=== PATIENT | female | born 1945 | race African-American/Black ===

== ENCOUNTER 2017-07-18 03:48 | Emergency (ER) | payer OTHER ==
[~2017-07-18 03:48] MED LIST: RSI MEDICATION KIT IV ONE
[2017-07-18] MEDS ORDERED: ETOMIDATE 20 MG/10 ML VIAL IV ONE (03:49)
[2017-07-18] MEDS ORDERED: WATER FOR INJ,STERILE 10 ML PO ONE (03:49)
[2017-07-18] MEDS ORDERED: VECURONIUM 10 MG/VIAL IV ONE (03:49)
--- OUTSIDE RECORDS SUMMARY | 2017-07-18 03:50 | XMS REPORT | Clinical Summary ---
:1945 Author Organization [facility] Address [address] [place] [address] Phone Care Team Providers Name Role Phone Unavailable Primary Care Provider Unavailable Allergies Active Allergy Reactions Severity Noted Date Comments Codeine 06/11/2016 Iodine And Iodide Containing Products Hives 06/11/2016 Current Medications Prescription Sig. Disp. Refills Start Date End Date Status metoprolol (LOPRESSOR) 25 Take 25 mg by Active MG tablet mouth daily. furosemide (LASIX) 40 MG Take 20 mg by Active tablet mouth daily. clopidogrel (PLAVIX) 75 mg Take 75 mg by Active tablet mouth daily. aspirin 81 MG chewable Take 81 mg by Active tablet mouth daily. Active Problems Problem Noted Date H/O aortic aneurysm repair 06/12/2016 Overview: S/p TEVAR with Dr. 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
--- OUTSIDE RECORDS SUMMARY | 2017-07-18 03:51 | XMS REPORT ---
:1945 [facility] Address [facility] [address] [place] [address] Care Team Providers Name Role Phone KIRILL WOODARD Unavailable Unavailable Problems This patient has no known problems. Allergies, Adverse Reactions, Alerts This patient has no known allergies or adverse reactions. Medications This patient has no known medications. Results Test Description Test Time Test Comments Text Results Atomic Results Result Comments POCT-GLUCOSE METER 2016-06-15 12:27:00 Test Item Value Reference Range Comments POC-GLUCOSE METER (BEAKER) (test 156 mg/dL 70-[address] [facility] [address] [facility] skle=[id number]) [facility] [address] BASIC METABOLIC [id number] 05:45:00 Test Item Value Reference Range Comments SODIUM (BEAKER) (test 141 meq/L 136-145 kgts=678) POTASSIUM (BEAKER) (test 4.1 meq/L 3.5-5.1 ujcp=621) CHLORIDE (BEAKER) (test 106 meq/L 98-107 ccqe=070) CO2 (BEAKER) (test 26 meq/L 22-29 ewgc=844) BLOOD UREA NITROGEN 11 mg/dL 7-21 (BEAKER) (test icmn=496) CREATININE (BEAKER) (test 0.83 mg/dL 0.57-1.25 bjvx=638) GLUCOSE RANDOM (BEAKER) 139 mg/dL 70-105 (test vxrm=070) CALCIUM (BEAKER) (test 8.5 mg/dL 8.4-10.2 osxu=752) EGFR (BEAKER) (test 83 mL/min/1.73 sq m ESTIMATED GFR IS NOT khxw=4853) ACCURATE CREATININE CLEARANCE IN PREDICTING GLOMERULAR FILTRATION RATE. ESTIMATED GFR IS NOT APPLICABLE FOR DIALYSIS PATIENTS. POCT-GLUCOSE [id number] 21:10:00 Test Item Value Reference Range Comments POC-GLUCOSE METER (BEAKER) 103 mg/dL 70-110 TESTED AT [address] (test jtmk=9825) [facility] [address] POCT-GLUCOSE [id number] 17:51:00 Test Item Value Reference Range Comments POC-GLUCOSE METER (BEAKER) 138 mg/dL 70-110 TESTED AT [address] (test ayjy=5785) [facility] [address] POCT-GLUCOSE [id number] 12:45:00 Test Item Value Reference Range Comments POC-GLUCOSE METER (BEAKER) 294 mg/dL 70-110 TESTED AT [address] (test lobd=2219) [place] [id number] CBC WITH PLATELET COUNT + MANUAL [id number] 07:04:00 Test Item Value Reference Range Comments WHITE BLOOD CELL COUNT (BEAKER) (test xngg=025) 10.7 K/ L 4.0-10.0 RED BLOOD CELL COUNT (BEAKER) (test ydvt=993) 3.91 M/ L 4.00-5.00 HEMOGLOBIN (BEAKER) (test fuoi=366) 12.9 GM/DL 12.0-15.0 HEMATOCRIT (BEAKER) (test hych=570) 39.0 % 36.0-45.0 MEAN CORPUSCULAR VOLUME (BEAKER) (test cdxd=746) 99.6 fL 82.0-99.0 MEAN CORPUSCULAR HEMOGLOBIN (BEAKER) (test 32.9 pg 27.0-33.0 jjsp=802) MEAN CORPUSCULAR HEMOGLOBIN CONC (BEAKER) (test 33.0 GM/DL 32.0-36.0 gltd=504) RED CELL DISTRIBUTION WIDTH (BEAKER) (test 12.8 % 10.3-14.2 igsa=822) PLATELET COUNT (BEAKER) (test gzky=152) 251 K/CU MM 150-430 MEAN PLATELET VOLUME (BEAKER) (test iqwz=008) 8.1 fL 6.5-10.5 NUCLEATED RED BLOOD CELLS (BEAKER) (test 0 /100 WBC 0-0 gncz=287) NEUTROPHILS RELATIVE PERCENT (BEAKER) (test 80 % mesf=366) LYMPHOCYTES RELATIVE PERCENT (BEAKER) (test 14 % pugd=983) MONOCYTES RELATIVE PERCENT (BEAKER) (test 6 % ingn=467) EOSINOPHILS RELATIVE PERCENT (BEAKER) (test 0 % twlm=382) BASOPHILS RELATIVE PERCENT (BEAKER) (test 0 % yebd=180) NEUTROPHILS ABSOLUTE COUNT (BEAKER) (test 8.55 K/ L 1.80-8.00 pmau=199) LYMPHOCYTES ABSOLUTE COUNT (BEAKER) (test 1.46 K/ L 1.48-4.50 ierz=665) MONOCYTES ABSOLUTE COUNT (BEAKER) (test 0.60 K/ L 0.00-1.30 hjpk=378) EOSINOPHILS ABSOLUTE COUNT (BEAKER) (test 0.05 K/ L 0.00-0.50 hiwt=412) BASOPHILS ABSOLUTE COUNT (BEAKER) (test 0.02 K/ L 0.00-0.20 thxx=357) 0.00(MANUAL DIFFERENTIAL)2016-06-14 07:04:00 Test Item Value Reference Range Comments TOTAL COUNTED (BEAKER) (test fzyn=0527) PLT MORPHOLOGY (BEAKER) (test bgij=478) Normal RBC MORPHOLOGY (BEAKER) (test ydmc=146) Normal ATYPICAL LYMPHS(BEAKER) (test tqqa=9654) Present BASIC METABOLIC [id number] 05:05:00 Test Item Value Reference Range Comments SODIUM (BEAKER) (test 140 meq/L 136-145 zivj=835) POTASSIUM (BEAKER) (test 3.8 meq/L 3.5-5.1 ymem=196) CHLORIDE (BEAKER) (test 107 meq/L 98-107 pyee=853) CO2 (BEAKER) (test 26 meq/L 22-29 qvmh=603) BLOOD UREA NITROGEN 13 mg/dL 7-21 (BEAKER) (test pyji=409) CREATININE (BEAKER) (test 0.80 mg/dL 0.57-1.25 wvpi=823) GLUCOSE RANDOM (BEAKER) 177 mg/dL 70-105 (test jofd=173) CALCIUM (BEAKER) (test 8.3 mg/dL 8.4-10.2 xysn=804) EGFR (BEAKER) (test 86 mL/min/1.73 sq m ESTIMATED GFR IS NOT mxwr=9435) ACCURATE CREATININE CLEARANCE IN PREDICTING GLOMERULAR FILTRATION RATE. ESTIMATED GFR IS NOT APPLICABLE FOR DIALYSIS PATIENTS. [id number] 04:48:00 Test Item Value Reference Range Comments PROTIME (BEAKER) (test ivky=774) 13.0 seconds 11.7-14.7 INR (BEAKER) (test tuou=689) 1.0 <=5.9 PARTIAL THROMBOPLASTIN TIME (BEAKER) (test 31.8 seconds 22.5-36.0 gmvr=863) RECOMMENDED COUMADIN/WARFARIN INR THERAPY RANGESSTANDARD DOSE: 2.0 - 3.0 Includes: PROPHYLAXIS forvenous thrombosis, systemic embolization; TREATMENT for venous thrombosis and/or pulmonary embolus.HIGH RISK: Target INR is 2.5-3.5 for patients with mechanical heart valves.POCT-GLUCOSE [id number] 22:11:00 Test Item Value Reference Range Comments POC-GLUCOSE METER (BEAKER) 200 mg/dL 70-110 TESTED AT [address] (test tpqr=1787) [place] [id number] POCT-GLUCOSE [id number] 17:13:00 Test Item Value Reference Range Comments POC-GLUCOSE METER (BEAKER) 225 mg/dL 70-110 TESTED AT [address] (test ngya=4449) [place] [id number] POCT-GLUCOSE [id number] 12:22:00 Test Item Value Reference Range Comments POC-GLUCOSE METER (BEAKER) 309 mg/dL 70-110 Notified PAULA BERGER/TESTED AT [facility] (test ozec=4358) [address] [place] [address] URINALYSIS W/ [id number] 12:09:00 Test Item Value Reference Range Comments COLOR (BEAKER) (test eqev=899) Yellow CLARITY (BEAKER) (test zozy=230) Clear SPECIFIC GRAVITY UA (BEAKER) (test yfcu=351) 1.035 1.001-1.035 PH UA (BEAKER) (test rofr=451) 5.0 5.0-8.0 PROTEIN UA (BEAKER) (test zvei=875) Negative Negative GLUCOSE UA (BEAKER) (test kcxn=965) 150 mg/dL Negative KETONES UA (BEAKER) (test uing=380) Negative Negative BILIRUBIN UA (BEAKER) (test fpkt=285) Negative Negative BLOOD UA (BEAKER) (test ldis=371) Small Negative NITRITE UA (BEAKER) (test brjx=422) Negative Negative LEUKOCYTE ESTERASE UA (BEAKER) (test cwlj=886) Negative Negative UROBILINOGEN UA (BEAKER) (test hxar=985) 0.2 mg/dL 0.2-1.0 RBC UA (BEAKER) (test dhzo=936) 6 /HPF WBC UA (BEAKER) (test biph=414) 1 /HPF MUCUS (BEAKER) (test buiz=4920) Rare SQUAMOUS EPITHELIAL (BEAKER) (test pxzb=056) 6 /HPF HYALINE CASTS (BEAKER) (test pahh=231) 2 /LPF SOURCE(BEAKER) (test fyqo=9044) POCT-GLUCOSE [id number] 07:58:00 Test Item Value Reference Range Comments POC-GLUCOSE METER (BEAKER) 236 mg/dL 70-[address] [facility] [address] [facility] (test ewca=4819) [facility] [address] BASIC METABOLIC [id number] 04:10:00 Test Item Value Reference Range Comments SODIUM (BEAKER) (test 138 meq/L 136-145 fhey=837) POTASSIUM (BEAKER) (test 4.2 meq/L 3.5-5.1 duvc=685) CHLORIDE (BEAKER) (test 107 meq/L 98-107 mwvd=822) CO2 (BEAKER) (test 22 meq/L 22-29 sfja=519) BLOOD UREA NITROGEN 20 mg/dL 7-21 (BEAKER) (test yrny=076) CREATININE (BEAKER) (test 1.00 mg/dL 0.57-1.25 qttx=715) GLUCOSE RANDOM (BEAKER) 246 mg/dL 70-105 (test szvb=694) CALCIUM (BEAKER) (test 8.8 mg/dL 8.4-10.2 izjq=055) EGFR (BEAKER) (test 67 mL/min/1.73 sq m ESTIMATED GFR IS NOT jeqe=8512) ACCURATE CREATININE CLEARANCE IN PREDICTING GLOMERULAR FILTRATION RATE. ESTIMATED GFR IS NOT APPLICABLE FOR DIALYSIS PATIENTS. PT/[id number] 04:03:00 Test Item Value Reference Range Comments PROTIME (BEAKER) (test ijxe=672) 12.8 seconds 11.7-14.7 INR (BEAKER) (test suqm=338) 1.0 <=5.9 PARTIAL THROMBOPLASTIN TIME (BEAKER) (test 29.6 seconds 22.5-36.0 moee=058) RECOMMENDED COUMADIN/WARFARIN INR THERAPY RANGESSTANDARD DOSE: 2.0 - 3.0 Includes: PROPHYLAXIS forvenous thrombosis, systemic embolization; TREATMENT for venous thrombosis and/or pulmonary embolus.HIGH RISK: Target INR is 2.5-3.5 for patients with mechanical heart valves.CBC WITH PLATELET COUNT + MANUAL [id number] 03:58:00 Test Item Value Reference Range Comments WHITE BLOOD CELL COUNT (BEAKER) (test xwrw=202) 14.3 K/ L 4.0-10.0 RED BLOOD CELL COUNT (BEAKER) (test hsnh=278) 4.03 M/ L 4.00-5.00 HEMOGLOBIN (BEAKER) (test ywvi=426) 13.1 GM/DL 12.0-15.0 HEMATOCRIT (BEAKER) (test priu=077) 39.7 % 36.0-45.0 MEAN CORPUSCULAR VOLUME (BEAKER) (test tony=885) 98.5 fL 82.0-99.0 MEAN CORPUSCULAR HEMOGLOBIN (BEAKER) (test 32.6 pg 27.0-33.0 wmyh=640) MEAN CORPUSCULAR HEMOGLOBIN CONC (BEAKER) (test 33.1 GM/DL 32.0-36.0 qvmo=945) RED CELL DISTRIBUTION WIDTH (BEAKER) (test 12.9 % 10.3-14.2 rtbq=209) PLATELET COUNT (BEAKER) (test bpvg=042) 271 K/CU MM 150-430 MEAN PLATELET VOLUME (BEAKER) (test guss=221) 7.7 fL 6.5-10.5 NUCLEATED RED BLOOD CELLS (BEAKER) (test 0 /100 WBC 0-0 dzlo=641) NEUTROPHILS RELATIVE PERCENT (BEAKER) (test 87 % mjnc=653) LYMPHOCYTES RELATIVE PERCENT (BEAKER) (test 7 % ghoc=962) MONOCYTES RELATIVE PERCENT (BEAKER) (test 6 % pari=712) EOSINOPHILS RELATIVE PERCENT (BEAKER) (test 0 % kchh=517) BASOPHILS RELATIVE PERCENT (BEAKER) (test 0 % ldrn=161) NEUTROPHILS ABSOLUTE COUNT (BEAKER) (test 12.40 K/ L 1.80-8.00 ubvs=661) LYMPHOCYTES ABSOLUTE COUNT (BEAKER) (test 1.06 K/ L 1.48-4.50 wirk=294) MONOCYTES ABSOLUTE COUNT (BEAKER) (test 0.81 K/ L 0.00-1.30 rjcb=500) EOSINOPHILS ABSOLUTE COUNT (BEAKER) (test 0.01 K/ L 0.00-0.50 swph=439) BASOPHILS ABSOLUTE COUNT (BEAKER) (test 0.03 K/ L 0.00-0.20 txtb=067) 0.000.530.000.000.520.000.000.000.00POCT-GLUCOSE [id number] 22:17:00 Test Item Value Reference Range Comments POC-GLUCOSE METER (BEAKER) 260 mg/dL 70-110 TESTED AT [address] (test ddve=6612) [place] [address] POCT-GLUCOSE [id number] 12:11:00 Test Item Value Reference Range Comments POC-GLUCOSE METER (BEAKER) 278 mg/dL 70-110 TESTED AT [address] (test oxbk=6383) [place] [address] HEMOGLOBIN [id number] 10:46:00 Test Item Value Reference Range Comments HEMOGLOBIN A1C (BEAKER) (test ioxb=783) 9.7 % 4.3-6.1 DC\S\Delta Check\S\NONEPOCT-GLUCOSE [id number] 07:15:00 Test Item Value Reference Range Comments POC-GLUCOSE METER (BEAKER) 283 mg/dL 70-110 TESTED AT [address] (test lqoe=5039) [place] [address] BASIC METABOLIC [id number] 04:43:00 Test Item Value Reference Range Comments SODIUM (BEAKER) (test 136 meq/L 136-145 rqqi=025) POTASSIUM (BEAKER) (test 4.0 meq/L 3.5-5.1 upkq=055) CHLORIDE (BEAKER) (test 102 meq/L 98-107 euxx=708) CO2 (BEAKER) (test 27 meq/L 22-29 jbnr=517) BLOOD UREA NITROGEN 18 mg/dL 7-21 (BEAKER) (test doga=328) CREATININE (BEAKER) (test 0.95 mg/dL 0.57-1.25 jire=985) GLUCOSE RANDOM (BEAKER) 256 mg/dL 70-105 (test jehh=192) CALCIUM (BEAKER) (test 9.0 mg/dL 8.4-10.2 vqdq=378) EGFR (BEAKER) (test 71 mL/min/1.73 sq m ESTIMATED GFR IS NOT smdk=4832) ACCURATE CREATININE CLEARANCE IN PREDICTING GLOMERULAR FILTRATION RATE. ESTIMATED GFR IS NOT APPLICABLE FOR DIALYSIS PATIENTS. CBC WITH PLATELET COUNT + MANUAL [id number] 04:28:00 Test Item Value Reference Range Comments WHITE BLOOD CELL COUNT (BEAKER) (test niid=461) 11.6 K/ L 4.0-10.0 RED BLOOD CELL COUNT (BEAKER) (test ulsn=028) 4.15 M/ L 4.00-5.00 HEMOGLOBIN (BEAKER) (test jhhp=326) 13.3 GM/DL 12.0-15.0 HEMATOCRIT (BEAKER) (test xeib=366) 40.5 % 36.0-45.0 MEAN CORPUSCULAR VOLUME (BEAKER) (test rsuc=961) 97.6 fL 82.0-99.0 MEAN CORPUSCULAR HEMOGLOBIN (BEAKER) (test 32.1 pg 27.0-33.0 nftg=911) MEAN CORPUSCULAR HEMOGLOBIN CONC (BEAKER) (test 32.9 GM/DL 32.0-36.0 ahti=253) RED CELL DISTRIBUTION WIDTH (BEAKER) (test 12.7 % 10.3-14.2 wlgb=475) PLATELET COUNT (BEAKER) (test vupe=409) 263 K/CU MM 150-430 MEAN PLATELET VOLUME (BEAKER) (test lofn=535) 8.2 fL 6.5-10.5 NUCLEATED RED BLOOD CELLS (BEAKER) (test 0 /100 WBC 0-0 nnks=555) NEUTROPHILS RELATIVE PERCENT (BEAKER) (test 90 % meez=104) LYMPHOCYTES RELATIVE PERCENT (BEAKER) (test 8 % rjgu=363) MONOCYTES RELATIVE PERCENT (BEAKER) (test 2 % bfya=135) EOSINOPHILS RELATIVE PERCENT (BEAKER) (test 0 % mdbm=289) BASOPHILS RELATIVE PERCENT (BEAKER) (test 0 % rgwj=287) NEUTROPHILS ABSOLUTE COUNT (BEAKER) (test 10.40 K/ L 1.80-8.00 mwic=819) LYMPHOCYTES ABSOLUTE COUNT (BEAKER) (test 0.95 K/ L 1.48-4.50 lsld=942) MONOCYTES ABSOLUTE COUNT (BEAKER) (test 0.20 K/ L 0.00-1.30 mgzx=471) EOSINOPHILS ABSOLUTE COUNT (BEAKER) (test 0.02 K/ L 0.00-0.50 buwf=038) BASOPHILS ABSOLUTE COUNT (BEAKER) (test 0.02 K/ L 0.00-0.20 veiu=703) 0.00PT/[id number] 04:25:00 Test Item Value Reference Range Comments PROTIME (BEAKER) (test jwpx=355) 13.7 seconds 11.7-14.7 INR (BEAKER) (test zddo=645) 1.1 <=5.9 PARTIAL THROMBOPLASTIN TIME (BEAKER) (test 32.8 seconds 22.5-36.0 vpfr=718) RECOMMENDED COUMADIN/WARFARIN INR THERAPY RANGESSTANDARD DOSE: 2.0 - 3.0 Includes: PROPHYLAXIS forvenous thrombosis, systemic embolization; TREATMENT for venous thrombosis and/or pulmonary embolus.HIGH RISK: Target INR is 2.5-3.5 for patients with mechanical heart valves.POCT-GLUCOSE [id number] 02:47:00 Test Item Value Reference Range Comments POC-GLUCOSE METER (BEAKER) 278 mg/dL 70-110 TESTED AT [address] (test qrqj=7127) [place] [address] POCT-GLUCOSE [id number] 22:12:00 Test Item Value Reference Range Comments POC-GLUCOSE METER (BEAKER) 258 mg/dL 70-110 TESTED AT [address] (test igui=3729) [place] [address] [id number] 15:44:00 Test Item Value Reference Range Comments MAGNESIUM (BEAKER) (test 2.1 mg/dL 1.6-2.6 Specimen slightly hemolyzed ojzm=500) [id number] 15:44:00 Test Item Value Reference Range Comments PHOSPHORUS (BEAKER) (test 2.9 mg/dL 2.3-4.7 Specimen slightly hemolyzed aetz=353) BASIC METABOLIC [id number] 15:44:00 Test Item Value Reference Range Comments SODIUM (BEAKER) (test 137 meq/L 136-145 wnwj=818) POTASSIUM (BEAKER) (test 4.4 meq/L 3.5-5.1 Specimen slightly ktua=950) hemolyzed CHLORIDE (BEAKER) (test 99 meq/L 98-107 vnnx=015) CO2 (BEAKER) (test 27 meq/L 22-29 jmal=286) BLOOD UREA NITROGEN 13 mg/dL 7-21 (BEAKER) (test shts=576) CREATININE (BEAKER) (test 0.96 mg/dL 0.57-1.25 Specimen slightly eedw=021) hemolyzed GLUCOSE RANDOM (BEAKER) 250 mg/dL 70-105 (test mujq=167) CALCIUM (BEAKER) (test 9.6 mg/dL 8.4-10.2 asri=017) EGFR (BEAKER) (test 70 mL/min/1.73 sq m ESTIMATED GFR IS NOT ezsj=2472) ACCURATE CREATININE CLEARANCE IN PREDICTING GLOMERULAR FILTRATION RATE. ESTIMATED GFR IS NOT APPLICABLE FOR DIALYSIS PATIENTS. CBC WITH PLATELET COUNT + MANUAL [id number] 15:39:00 Test Item Value Reference Range Comments WHITE BLOOD CELL COUNT (BEAKER) (test fcwv=993) 9.5 K/ L 4.0-10.0 RED BLOOD CELL COUNT (BEAKER) (test scnv=450) 4.18 M/ L 4.00-5.00 HEMOGLOBIN (BEAKER) (test hfzj=789) 14.0 GM/DL 12.0-15.0 HEMATOCRIT (BEAKER) (test cgfm=144) 40.7 % 36.0-45.0 MEAN CORPUSCULAR VOLUME (BEAKER) (test unik=500) 97.3 fL 82.0-99.0 MEAN CORPUSCULAR HEMOGLOBIN (BEAKER) (test 33.4 pg 27.0-33.0 kqrj=929) MEAN CORPUSCULAR HEMOGLOBIN CONC (BEAKER) (test 34.3 GM/DL 32.0-36.0 jhdb=252) RED CELL DISTRIBUTION WIDTH (BEAKER) (test 12.6 % 10.3-14.2 nuzw=146) PLATELET COUNT (BEAKER) (test aife=970) 253 K/CU MM 150-430 MEAN PLATELET VOLUME (BEAKER) (test nlmg=805) 8.1 fL 6.5-10.5 NUCLEATED RED BLOOD CELLS (BEAKER) (test 0 /100 WBC 0-0 fmiu=083) NEUTROPHILS RELATIVE PERCENT (BEAKER) (test 91 % rylk=031) LYMPHOCYTES RELATIVE PERCENT (BEAKER) (test 8 % kyef=304) MONOCYTES RELATIVE PERCENT (BEAKER) (test 1 % ghha=384) EOSINOPHILS RELATIVE PERCENT (BEAKER) (test 0 % mwhz=788) BASOPHILS RELATIVE PERCENT (BEAKER) (test 0 % lhvk=084) NEUTROPHILS ABSOLUTE COUNT (BEAKER) (test 8.66 K/ L 1.80-8.00 kwqg=904) LYMPHOCYTES ABSOLUTE COUNT (BEAKER) (test 0.78 K/ L 1.48-4.50 yvlu=219) MONOCYTES ABSOLUTE COUNT (BEAKER) (test 0.07 K/ L 0.00-1.30 ebak=283) EOSINOPHILS ABSOLUTE COUNT (BEAKER) (test 0.01 K/ L 0.00-0.50 apxy=977) BASOPHILS ABSOLUTE COUNT (BEAKER) (test 0.01 K/ L 0.00-0.20 sdqi=354) [id number] 15:39:00 Test Item Value Reference Range Comments PROTIME (BEAKER) (test mfun=793) 12.7 seconds 11.7-14.7 INR (BEAKER) (test qskx=015) 1.0 <=5.9 PARTIAL THROMBOPLASTIN TIME (BEAKER) (test 32.8 seconds 22.5-36.0 lijf=197) RECOMMENDED COUMADIN/WARFARIN INR THERAPY RANGESSTANDARD DOSE: 2.0 - 3.0 Includes: PROPHYLAXIS forvenous thrombosis, systemic embolization; TREATMENT for venous thrombosis and/or pulmonary embolus.HIGH RISK: Target INR is 2.5-3.5 for patients with mechanical heart valves.
[2017-07-18] MEDS ORDERED: PROPOFOL 1,000 MG/100 ML VIAL IV ONE (03:53)
[2017-07-18 04:08] LABS: Arterial Blood Carboxyhemoglob 0.7 % (0-1.5); Blood Gas Oxyhemoglobin 97.2 % (94-97); Blood O2 Saturation 98.6 % (92-98.5)
[2017-07-18] MEDS ORDERED: HYDROCORTISONE SUC 100 MG INJ ONE (04:21)
[2017-07-18 04:48] LABS: Absolute Lymphocytes (CBC) 2.9 K/uL (0.7-4.9); Absolute Monocytes 0.5 K/uL (0.1-1.3); Absolute Neutrophil 8.3 K/uL (1.8-8.0); Basophils % 0.5 % (0-1.3); Eosinophils % 1.3 % (0-4.4); Hematocrit 44.4 % (36.0-45.0); MCH 30.4 pg (27.0-35.0); MCV 97.3 fL (80-100); MPV 8.9 fL (7.6-11.3); Monocytes % 4.2 % (3.3-12.3); RBC Red Blood Cell Count 4.56 M/uL (3.86-4.86)
[2017-07-18 05:25] LABS: Potassium 3.7 mEq/L (3.6-5.0)
[2017-07-18] MEDS ORDERED: ASPIRIN 600 MG/SUPP PR ONE (05:25)
[2017-07-18] MEDS ORDERED: TENECTEPLASE 50 MG/10 ML VIAL IV ONE (05:26)
[2017-07-18] MEDS ORDERED: PIPER/TAZO/NS 3.375gm 3.375 GM/100 ML BAG ONE (05:26)
[2017-07-18] MEDS ORDERED: NA CHLORIDE 0.9% 1,000 ML ONE (05:26)
[2017-07-18 05:31] LABS: Albumin 3.8 g/dL (3.2-5.5); Bilirubin Direct 0.2 mg/dL (0-0.2); Bilirubin Total 0.5 mg/dL (0.3-1.2); Protein, Total 7.6 g/dL (6.0-8.3)
--- NOTE | 2017-07-18 05:33 | EDPHYS ---
Physician Documentation [facility] Name: Christa Ayala Age: 71 yrs Sex: Female : 1945 Arrival Date: 07/18/2017 Time: 03:53 Bed 3 Private MD: ED Physician Junito Starkey HPI: 07/18 05:24 This 71 yrs old Black Female presents to ER via EMS with unknown complaint. gs 05:24 The patient has shortness of breath at rest. Onset: The symptoms/episode began/occurred gs acutely, just prior to arrival. Duration: The symptoms are continuous, and are steadily getting worse. Unable to obtain HPI due to obtunded state, patient distress. Historical: - Allergies: 04:02 Codeine; ak1 04:02 Iodine; ak1 - Home Meds: 04:02 amlodipine 10 mg tab 1 tab once daily [Active]; aspirin 81 mg Oral chew 1 tab once ak1 daily [Active]; clonidine HCl 0.1 mg Oral tab 1 tab 3 times per day [Active]; clopidogrel 75 mg Oral tab 1 tab once daily [Active]; glipizide 10 mg Oral tab 1 tab 2 times per day [Active]; Januvia 100 mg Oral tab 1 tab once daily [Active]; Lasix 20 mg Oral tab 1 tab once daily [Active]; lisinopril 40 mg Oral tab 1 tab once daily [Active]; lisinopril 10 mg Oral tab 1 tab once daily [Active]; meclizine 25 mg Oral tab q 8 hrs prn [Active]; metformin 1,000 mg Oral tab 1 tab 2 times per day [Active]; metoprolol tartrate 25 mg Oral tab 1 tab once daily [Active]; Spiriva with HandiHaler 18 mcg inhalation CpDv 1 cap once daily [Active]; Tradjenta 5 mg Oral tab 1 tab once daily [Active]; - PMHx: 04:02 Diabetes - NIDDM; enlarged aorta; Hypertension; Emphysema; CHF; COPD; ak1 - PSHx: 04:02 Hernia repair; Heart stents; ak1 - Immunization history:: Adult Immunizations unknown. - Social history:: Smoking status: unknown. ROS: 05:24 Unable to obtain ROS due to obtunded state, patient distress. gs Exam: 05:24 Head/Face: Normocephalic, atraumatic. Eyes: Pupils equal round and reactive to light, gs extra-ocular motions intact. Lids and lashes normal. Conjunctiva and sclera are non-icteric and not injected. Cornea within normal limits. Periorbital areas with no swelling, redness, or edema. ENT: Nares patent. No nasal discharge, no septal abnormalities noted. Tympanic membranes are normal and external auditory canals are clear. Oropharynx with no redness, swelling, or masses, exudates, or evidence of obstruction, uvula midline. Mucous membranes moist. Neck: Trachea midline, no thyromegaly or masses palpated, and no cervical lymphadenopathy. Supple, full range of motion without nuchal rigidity, or vertebral point tenderness. No Meningismus. Chest/axilla: Normal chest wall appearance and motion. Nontender with no deformity. No lesions are appreciated. 05:24 Constitutional: The patient appears in obvious distress, severely distressed. 05:24 Cardiovascular: Rate: tachycardic, Rhythm: regular, Pulses: no pulse deficits are appreciated. 05:24 ECG was reviewed by the Attending Physician. Vital Signs: 03:50 BP 159 / 109; Pulse 156; Resp 26; Pulse Ox 100% on 100% BVM; Weight 90.72 kg (R); ak1 Height 5 ft. 5 in. (165.10 cm) (R); Pain 0/10; 03:54 BP 173 / 146; Pulse 148; Resp 19; Pulse Ox 100% on ETT vent; ak1 04:05 BP 174 / 112; Pulse 141; Resp 18; Pulse Ox 99% on 100% FiO2 ETT vent; Pain 0/10; ak1 04:33 BP 103 / 80; Pulse 133; Resp 20; Temp 99.2(C); Pulse Ox 95% on 100% FiO2 ETT vent; ak1 05:08 BP 159 / 120; Pulse 131; Resp 17; Temp 98.8(C); Pulse Ox 96% on 50% FiO2 ETT vent; Pain ak1 0/10; 05:14 BP 116 / 96; Pulse 124; Resp 18; Temp 97.8(C); Pulse Ox 96% on 50% FiO2 ETT vent; Pain ak1 0/10; 05:17 Pulse 124; Resp 18; Temp 97.8; Pulse Ox 96% on 50% FiO2 ETT vent; ak1 05:30 BP 111 / 89; Pulse 130; Resp 20; Temp 97.7; Pulse Ox 93% on 50% FiO2 ETT vent; bp 05:45 BP 130 / 98; Pulse 125; Resp 18; Temp 97.7(C); Pulse Ox 96% on 50% FiO2 ETT vent; ak1 05:58 BP 115 / 92; Pulse 124; Resp 20; Temp 97.6(C); Pulse Ox 94% on 50% FiO2 ETT vent; ak1 03:50 Body Mass Index 33.28 (90.72 kg, 165.10 cm) ak1 05:08 pt vent settings changed to rate of 18, tidal volume 550, FiO2 50%, PEEP 5. me1 Ventilator: 05:17 Fi02: 50%; Rate: 18min; T.V.: 550ml; Peep: 5cm; ET tube: 7.5 mm (Oral); ak1 05:58 Fi02: 50%; Rate: 20min; T.V.: 550ml; Peep: 5cm; ET tube: 7.5 mm; ak1 Procedures: 05:24 Intubation: Ventilated with 100% NRB prior to procedure. O2 saturation prior to gs procedure was 100 %. Intubated orally using # 3 Barbara blade with 7.5 mm ETT. Successful on second attempt. Ventilated with Ambu bag. Tube secured with ETT hernandes Placement verified by CXR, CO2 detector with (+) color change, auscultating bilateral breath sounds, O2 saturation after procedure was 100 %. MDM: 03:55 Patient medically screened. 05:24 Differential diagnosis: CHF exacerbation, Chronic Obstructive Pulmonary Disease gs Myocardial Infarction Sepsis. Data reviewed: vital signs, nurses notes. 07/18 03:56 Order name: Basic Metabolic Panel 07/18 03:56 Order name: Blood Culture Adult (2) 07/18 03:56 Order name: CBC with Diff; Complete Time: 05:17 07/18 03:56 Order name: Lactate; Complete Time: 05:17 07/18 03:56 Order name: LFT's 07/18 03:56 Order name: Lipase; Complete Time: 05:37 07/18 03:56 Order name: Troponin (emerg Dept Use Only); Complete Time: 05:17 07/18 03:56 Order name: ABG; Complete Time: 05:17 gs 07/18 03:57 Order name: Basic Metabolic Panel; Complete Time: 05:37 EDMS 07/18 03:57 Order name: Liver (Hepatic) Function; Complete Time: 05:37 EDMS 07/18 04:54 Order name: Urine Dipstick--Ancillary (enter results) rg2 07/18 03:54 Order name: CXR XRAY bp 07/18 03:56 Order name: Accucheck; Complete Time: 04:19 gs 07/18 03:56 Order name: Cardiac monitoring; Complete Time: 04:11 gs 07/18 03:56 Order name: EKG - Nurse/Tech; Complete Time: 04:36 gs 07/18 03:56 Order name: IV Saline Lock - Large Bore; Complete Time: 04:12 gs 07/18 04:35 Order name: CT Head Brain wo Cont 07/18 05:19 Order name: ABG 07/18 03:56 Order name: Labs collected and sent; Complete Time: 04:12 07/18 03:56 Order name: O2 Per Protocol; Complete Time: 04:12 07/18 03:56 Order name: O2 Sat Monitoring; Complete Time: 04:12 07/18 03:56 Order name: Urine Dipstick-Ancillary (obtain specimen); Complete Time: 04:36 gs EC:24 Rate is 133 beats/min. Rhythm is regular. QRS interval is prolonged. ST Segment is gs elevated in leads I, aVL, V5, V6. Clinical impression: Anterior LA - acute and Lateral LA - acute. Changes noted from previous ECG. Administered Medications: 03:51 Drug: Etomidate 20 mg Route: IVP; Site: right antecubital; ak1 04:19 Follow up: Response: No adverse reaction ak1 03:57 Drug: Propofol 5 mcg/kg/min Route: IV; Rate: calculated rate; Site: right antecubital; ak1 04:09 Follow up: increased to 30mcg/kg/min ak1 04:40 Follow up: propofol decreased to 25mcg/kg/min ak1 04:09 Drug: VecuroNIUM 10 mg Route: IVP; Site: right antecubital; ak1 04:19 Follow up: Response: No adverse reaction ak1 04:15 Drug: HydroCORTISONE 100 mg Route: IVP; Site: left wrist; ak1 05:20 Follow up: Response: No adverse reaction ak1 05:34 Drug: Tenecteplase 45 mg {Co-Signature: bp (Miguleangel Frankel RN).} Route: IV; Rate: bolus; ak1 Site: right antecubital; 05:50 Follow up: IV Status: Completed infusion ak1 05:40 Drug: NS 0.9% 1000 ml {Note: verbal orders for fluids to be TKO per DR. Starkey .} Route: ak1 IV; Rate: 1 bolus; Site: right antecubital; 05:50 Follow up: IV Status: Infusion continued upon transfer ak1 05:40 Drug: Zosyn 3.375 grams Route: IVPB; Infused Over: 60 mins; Site: right antecubital; ak1 06:18 Follow up: IV Status: Completed infusion ak1 05:42 Drug: Aspirin Suppository 300 mg Route: WI; ak1 05:50 Follow up: Response: No adverse reaction ak1 05:56 Drug: Insulin Regular Human 5 units {Co-Signature: bp (Miguelangel Frankel RN).} Route: ak1 Sub-Q; Site: left lower abdomen; 05:58 Follow up: Response: No adverse reaction ak1 Point of Care Testing: Blood Glucose: 04:16 Blood Glucose: 479 mg/dL; ak1 Ranges: Critical Glucose Levels:Adult <50 mg/dl or >400 mg/dl <40 mg/dl or >180 mg/dl Disposition: 05:24 Critical Care:. Disposition: 07/18/17 05:32 Transfer ordered to [facility]. Diagnosis are ST elevation (STEMI) myocardial infarction of anterior wall, ST elevation (STEMI) myocardial infarction involving other sites. - Reason for transfer: Higher level of care. - Accepting physician is bendeali agrees accepts. - Condition is Stable. - Problem is new. - Symptoms have improved. Critical care time excluding procedures: 05:24 Critical care time: Bedside Care: 10 minutes, Consultation: 10 minutes, Family gs Intervention: 10 minutes. Total time: 30 minutes Signatures: Dispatcher [employer] Caroline Patton RN RN ak1 Junito Starkey MD MD gs Brian Peltier RN bp Corrections: (The following items were deleted from the chart) 04:53 03:57 BNP+C.LAB.BRZ ordered. EDMS EDMS 04:54 03:57 Procalcitonin+C.LAB.BRZ ordered. EDMS EDMS
--- NOTE | 2017-07-18 05:33 | ER ---
Nurse's Notes [facility] Name: Christa Ayala Age: 71 yrs Sex: Female : 1945 Arrival Date: 07/18/2017 Time: 03:53 Bed 3 Private MD: Diagnosis: ST elevation (STEMI) myocardial infarction of anterior wall;ST elevation (STEMI) myocardial infarction involving other sites Presentation: 07/18 03:50 Presenting complaint: EMS states: pt called her daughter at 0200 with SOB. pt daughter ak1 called EMS pt was 67% on 2L NC with 50 foot of tube. pt was placed on non rebreathe 90%. EMS stated pt was able to answer yes or no questions on scene. pt responsive to pain only and diaphoretic upon arrival. 03:50 Method Of Arrival: EMS: [facility] ak1 03:50 Transition of care: patient was not received from another setting of care. Onset of ak1 symptoms was July 18, 2017. Care prior to arrival: None. 03:50 Acuity: SONYA 1 ak1 Triage Assessment: 03:50 General: Appears distressed, Behavior is unresponsive. Pain: Unable to use pain scale. ak1 Patient is unresponsive. EENT: sputum at the mouth. pt unable to swallow own secretions upon arrival. . Neuro: Level of Consciousness is unresponsive. Cardiovascular: pt diaphoretic . Rhythm is sinus tachycardia. Respiratory: Respiratory effort is labored, gasping, with retractions, the patient has severe shortness of breath. GI: No signs and/or symptoms were reported involving the gastrointestinal system. : No signs and/or symptoms were reported regarding the genitourinary system. Derm: No signs and/or symptoms reported regarding the dermatologic system. Musculoskeletal: No signs and/or symptoms reported regarding the musculoskeletal system. Historical: - Allergies: 04:02 Codeine; ak1 04:02 Iodine; ak1 - Home Meds: 04:02 amlodipine 10 mg tab 1 tab once daily [Active]; aspirin 81 mg Oral chew 1 tab once ak1 daily [Active]; clonidine HCl 0.1 mg Oral tab 1 tab 3 times per day [Active]; clopidogrel 75 mg Oral tab 1 tab once daily [Active]; glipizide 10 mg Oral tab 1 tab 2 times per day [Active]; Januvia 100 mg Oral tab 1 tab once daily [Active]; Lasix 20 mg Oral tab 1 tab once daily [Active]; lisinopril 40 mg Oral tab 1 tab once daily [Active]; lisinopril 10 mg Oral tab 1 tab once daily [Active]; meclizine 25 mg Oral tab q 8 hrs prn [Active]; metformin 1,000 mg Oral tab 1 tab 2 times per day [Active]; metoprolol tartrate 25 mg Oral tab 1 tab once daily [Active]; Spiriva with HandiHaler 18 mcg inhalation CpDv 1 cap once daily [Active]; Tradjenta 5 mg Oral tab 1 tab once daily [Active]; - PMHx: 04:02 Diabetes - NIDDM; enlarged aorta; Hypertension; Emphysema; CHF; COPD; ak1 - PSHx: 04:02 Hernia repair; Heart stents; ak1 - Immunization history:: Adult Immunizations unknown. - Social history:: Smoking status: unknown. Screenin:16 Abuse screen: Denies threats or abuse. Denies injuries from another. Nutritional ak1 screening: No deficits noted. Tuberculosis screening: No symptoms or risk factors identified. Fall Risk None identified. Assessment: 04:14 Reassessment: see triage assessment. ak1 04:41 Reassessment: daughter at bedside and updated about pt condition and plan of care.. ak1 05:06 Reassessment: pt transported to CT. pt ET tube remains 24 at the [facility]. RT suctioning pt ak1 at this time. pt propofol remains at 25mcg/kg/min to the right AC. . 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 pt wet ak1 clothing removed. . 05:44 Reassessment: attempted to call report to [facility]' equipment operator/laborer/supervisor was told to call back in ak1 15 minuets.. 06:16 Reassessment: report given to [employer] flight crew. pt left facility with propofol ak1 infusing to 18g in left wrist. . Vital Signs: 03:50 BP 159 / 109; Pulse 156; Resp 26; Pulse Ox 100% on 100% BVM; Weight 90.72 kg (R); ak1 Height 5 ft. 5 in. (165.10 cm) (R); Pain 0/10; 03:54 BP 173 / 146; Pulse 148; Resp 19; Pulse Ox 100% on ETT vent; ak1 04:05 BP 174 / 112; Pulse 141; Resp 18; Pulse Ox 99% on 100% FiO2 ETT vent; Pain 0/10; ak1 04:33 BP 103 / 80; Pulse 133; Resp 20; Temp 99.2(C); Pulse Ox 95% on 100% FiO2 ETT vent; ak1 05:08 BP 159 / 120; Pulse 131; Resp 17; Temp 98.8(C); Pulse Ox 96% on 50% FiO2 ETT vent; Pain ak1 0/10; 05:14 BP 116 / 96; Pulse 124; Resp 18; Temp 97.8(C); Pulse Ox 96% on 50% FiO2 ETT vent; Pain ak1 0/10; 05:17 Pulse 124; Resp 18; Temp 97.8; Pulse Ox 96% on 50% FiO2 ETT vent; ak1 05:30 BP 111 / 89; Pulse 130; Resp 20; Temp 97.7; Pulse Ox 93% on 50% FiO2 ETT vent; bp 05:45 BP 130 / 98; Pulse 125; Resp 18; Temp 97.7(C); Pulse Ox 96% on 50% FiO2 ETT vent; ak1 05:58 BP 115 / 92; Pulse 124; Resp 20; Temp 97.6(C); Pulse Ox 94% on 50% FiO2 ETT vent; ak1 03:50 Body Mass Index 33.28 (90.72 kg, 165.10 cm) ak1 05:08 pt vent settings changed to rate of 18, tidal volume 550, FiO2 50%, PEEP 5. ak1 ED Course: 03:50 Inserted saline lock: 18 gauge in right antecubital area, using aseptic technique. ak1 ,using aseptic technique. placed by [place]. 03:50 Assist ventilation 7.5 tube. 24 at the gums. ak1 03:52 Carty cath inserted, using sterile technique, 16 Fr., by ED staff, balloon inflated, to ak1 gravity drainage. O2 via ET tube. vent settings at rate of 18, tidal volume 600, FiO2 100%. 03:52 Assisted provider with intubation using 7.5 mm ETT via oral route. ET tube secured at ak1 24cm at the gums. Intubated by Junito Starkey MD Placement verified by CXR, CO2 detector w/ + color change, auscultating bilateral breath sounds, Patient tolerated well. 03:53 Patient arrived in ED. rg2 03:54 Arm band placed on Patient placed in an exam room, on a stretcher, on oxygen, on ak1 hand icer, on pulse oximetry. 03:55 Junito Starkey MD is Attending Physician. 03:56 Caroline Denise, RN is Primary Nurse. ak1 03:59 Triage completed. ak1 04:05 First set of blood cultures drawn. mt 04:06 X-ray completed. Portable x-ray completed in exam room. Patient tolerated procedure kw well. 04:07 CXR XRAY In Process Unspecified. EDMS 04:13 Inserted saline lock: 18 gauge in left wrist, using aseptic technique. ,using aseptic ak1 technique. placed by Stephanie MITCHELL. 04:15 Second set of blood cultures drawn by . mt 04:35 Patient has correct armband on for positive identification. Bed in low position. Side ak1 rails up X2. pantry worker on. Pulse ox on. NIBP on. 04:36 NGT: inserted 14 Fr. other OG tube placed by Karissa August RN verified placement of air over ak1 stomach, verified return of gastric contents, to intermittent suction. 05:04 CT Head Brain wo Cont In Process Unspecified. EDMS 05:07 Patient transferred, IV remains in place. ak1 Administered Medications: 03:51 Drug: Etomidate 20 mg Route: IVP; Site: right antecubital; ak1 04:19 Follow up: Response: No adverse reaction ak1 03:57 Drug: Propofol 5 mcg/kg/min Route: IV; Rate: calculated rate; Site: right antecubital; ak1 04:09 Follow up: increased to 30mcg/kg/min ak1 04:40 Follow up: propofol decreased to 25mcg/kg/min ak1 04:09 Drug: VecuroNIUM 10 mg Route: IVP; Site: right antecubital; ak1 04:19 Follow up: Response: No adverse reaction ak1 04:15 Drug: HydroCORTISONE 100 mg Route: IVP; Site: left wrist; ak1 05:20 Follow up: Response: No adverse reaction ak1 05:34 Drug: Tenecteplase 45 mg {Co-Signature: bp (Miguelangel Frankel RN).} Route: IV; Rate: bolus; ak1 Site: right antecubital; 05:50 Follow up: IV Status: Completed infusion ak1 05:40 Drug: NS 0.9% 1000 ml {Note: verbal orders for fluids to be TKO per DR. Starkey .} Route: ak1 IV; Rate: 1 bolus; Site: right antecubital; 05:50 Follow up: IV Status: Infusion continued upon transfer ak1 05:40 Drug: Zosyn 3.375 grams Route: IVPB; Infused Over: 60 mins; Site: right antecubital; ak1 06:18 Follow up: IV Status: Completed infusion ak1 05:42 Drug: Aspirin Suppository 300 mg Route: ME; ak1 05:50 Follow up: Response: No adverse reaction ak1 05:56 Drug: Insulin Regular Human 5 units {Co-Signature: bp (Miguelangel Frankel RN).} Route: ak1 Sub-Q; Site: left lower abdomen; 05:58 Follow up: Response: No adverse reaction ak1 Point of Care Testing: Blood Glucose: 04:16 Blood Glucose: 479 mg/dL; ak1 Ranges: Intake: Ventilator: 05:17 Fi02: 50%; Rate: 18min; T.V.: 550ml; Peep: 5cm; ET tube: 7.5 mm (Oral); ak1 05:58 Fi02: 50%; Rate: 20min; T.V.: 550ml; Peep: 5cm; ET tube: 7.5 mm; ak1 Outcome: 04:37 critical ak1 05:10 Instructed on the need for transfer, pt family at bedside informed of need for transfer ak1 and plan of care. 05:32 ER care complete, transfer ordered by . 05:48 Transferred by helicopter to [facility], Transfer form completed. ak1 X-rays sent w/ patient. 06:20 Patient left the ED. ak1 Signatures: Dispatcher [employer] EDMS Saadia Clark Kimberlee kw Krenek, Amber, RN RN ak1 Amada Lee mt, Gregory, MD MD gs Peltier, PAULA Means RN bp Miguelangel Frankel RN bp
[2017-07-18] MEDS ORDERED: INSULIN -REGULAR HUMAN 50 UNIT/0.5 ML ML ONE (05:54)
[2017-07-18 06:03] LABS: Arterial Blood Carboxyhemoglob 1.3 % (0-1.5); Blood Gas Oxyhemoglobin 87.3 % (94-97); Blood O2 Saturation 89.3 % (92-98.5)
[2017-07-18 06:07] LABS: Urine Blood 1+ (NEG); Urine Glucose 2+ (NEG); Urine Protein 3+ (NEG); Urine Specific Gravity 1.025 (1.005-1.030)
[2017-07-18 06:40] VITALS: BP 115/92; TEMP 97.6; O2SAT 94
--- NOTE | 2017-07-18 08:30 | RAD REPORT ---
EXAM DESCRIPTION: RAD - Chest Single View - 07/18/2017 4:09 am CLINICAL HISTORY: Respiratory failure COMPARISON: 04/25/2017 FINDINGS: Portable technique limits examination quality. Tip of the ET tube is above the toro. Bilateral pulmonary opacities are present likely representing pulmonary edema or pneumonia. The heart is moderately prominent in size. IMPRESSION: Tip of the ET tube is above the toro.
--- NOTE | 2017-07-18 08:31 | RAD REPORT ---
EXAM DESCRIPTION: CT - Head Brain Wo Cont - 07/18/2017 6:57 am CLINICAL HISTORY: Diabetes, hypertension, altered consciousness. COMPARISON: 01/01/2007 TECHNIQUE: All CT scans are performed using dose optimization technique as appropriate and may inclu de automated exposure control or mA/KV adjustment according to patient size. FINDINGS: No intracranial hemorrhage, hydrocephalus or extra-axial fluid collection.Moderate general ized brain atrophy is present with moderate periventricular and deep white matter chronic microvascul ar ischemic changes.No areas of brain edema or evidence of midline shift. The paranasal sinuses and mastoids are clear. The calvarium is intact. IMPRESSION: No acute intracranial abnormality.
--- NOTE | 2017-07-18 12:10 | EKG ---
Test Date: 2017-07-18 Test Time: 04:31:19 Office Manager Receptionist: PATSY MEASUREMENT RESULTS: Intervals: Rate: 133 RI: QRSD: 126 QT: 390 QTc: 580 [place]: P: RI: QRS: 8 T: 78 INTERPRETIVE STATEMENTS: Sinus tachycardia Nonspecific intraventricular block Inferior infarct, possibly acute T wave abnormality, consider lateral ischemia ACUTE [place] / STEMI Abnormal ECG Compared to ECG 07/18/2017 04:25:33 T-wave abnormality now present Possible ischemia now present Myocardial infarct finding still present Electronically Signed On 07-18-17 12:10:23 CDT by John Foster
--- NOTE | 2017-07-18 12:11 | EKG ---
Test Date: 2017-07-18 Test Time: 04:25:33 Construction Job Titles: MAGGY MEASUREMENT RESULTS: Intervals: Rate: 136 [place]: QRSD: 128 QT: 380 QTc: 571 [place]: P: [place]: QRS: 15 T: 84 INTERPRETIVE STATEMENTS: Sinus tachycardia Nonspecific intraventricular block Inferior infarct, possibly acute Lateral injury pattern ACUTE [place] / STEMI Abnormal ECG Compared to ECG 04/23/2017 05:45:32 Wide-QRS tachycardia now present Myocardial infarct finding now present Sinus tachycardia no longer present T-wave abnormality no longer present Electronically Signed On 07-18-17 12:10:41 CDT by John Foster
== END 2017-07-18 06:20 | disposition short-term general hospital (02) ==
LOC: ER 03:48
PROC: 0BH17EZ Insertion of Endotracheal Airway into Trachea, Via Natural or Artificial Opening (ICD-10-PCS; principal; 2017-07-18)
PROC: 5A1935Z Respiratory Ventilation, Less than 24 Consecutive Hours (ICD-10-PCS; 2017-07-18)
DX: I21.09 ST elevation (STEMI) myocardial infarction involving other coronary artery of anterior wall (principal); I21.29 ST elevation (STEMI) myocardial infarction involving other sites; I10 Essential (primary) hypertension; E11.9 Type 2 diabetes mellitus without complications; I50.9 Heart failure, unspecified; J44.9 Chronic obstructive pulmonary disease, unspecified; Z79.82 Long term (current) use of aspirin; Z88.5 Allergy status to narcotic agent; Z91.048 Other nonmedicinal substance allergy status; Z95.818 Presence of other cardiac implants and grafts
CPT/HCPCS: 31500; 70450; 71045; 80048; 80076; 81003; 82805 ×2; 82962; 83605; 83690; 84484; 85025; 87040 ×2; 93005 ×2; 94002; J1720; J2543; J3101; J7030; 51702; 92977; 96372; 99291; 99292

== ENCOUNTER 2017-09-30 11:57 | Inpatient (IN) | payer OTHER ==
--- OUTSIDE RECORDS SUMMARY | 2017-09-30 11:59 | XMS REPORT | Clinical Summary ---
:1945 Author Organization [facility] Address [address] [place] [address] Phone Care Team Providers Name Role Phone Unavailable Primary Care Provider Unavailable Allergies Active Allergy Reactions Severity Noted Date Comments Codeine 06/11/2016 Iodine And Iodide Containing Products Hives 06/11/2016 Current Medications Prescription Sig. Disp. Refills Start Date End Date Status clopidogrel Take 75 mg by Active (PLAVIX) 75 mg mouth daily. tablet aspirin 81 MG Take 81 mg by Active chewable tablet mouth daily. amLODIPine Take 10 mg by Active (NORVASC) 10 MG mouth daily. tablet metFORMIN Take 1,000 mg by Active (GLUCOPHAGE) 1000 mouth 2 (two) MG tablet times daily with breakfast and dinner. lisinopril Take 10 mg by Active (PRINIVIL,ZESTRIL) mouth daily. 10 MG tablet atorvastatin Take 1 tablet (40 30 tablet 11 08/10/2017 Active (LIPITOR) 40 MG mg total) by 9 tablet mouth daily. budesonide Take 2 mLs (0.5 60 mL 0 08/09/2017 Active (PULMICORT) 0.5 mg total) by 9 mg/2 mL nebulizer nebulization 2 solution (two) times daily. bumetanide (BUMEX) Take 1 tablet (1 60 tablet 11 08/09/2017 Active 1 MG tablet mg total) by 9 mouth 2 (two) times daily. escitalopram Take 1 tablet (10 30 tablet 2 08/09/2017 Active oxalate (LEXAPRO) mg total) by 8 10 MG tablet mouth daily for 90 days. hydrALAZINE Take 1 tablet (25 90 tablet 11 08/09/2017 Active (APRESOLINE) 25 MG mg total) by 9 tablet mouth every 8 (eight) hours. isosorbide Take 1 tablet (30 30 tablet 11 08/10/2017 Active mononitrate mg total) by 9 (IMDUR) 30 MG 24 mouth daily. hr tablet zinc Apply 45 g 1 Tube 0 08/09/2017 Active oxide-petrolatum topically 2 (two) (CRITIC-AID) 20-51 times daily. % Pste topical paste metoprolol Take 0.5 tablets 30 tablet 11 08/09/2017 Active (TOPROL-XL) 25 MG (12.5 mg total) 9 24 hr tablet by mouth 2 (two) times daily. metoprolol Take 25 mg by Discontinued (LOPRESSOR) 25 MG mouth daily. 8 tablet furosemide (LASIX) Take 20 mg by Discontinued 40 MG tablet mouth daily. 8 fluticasone-salmet Inhale 1 puff by Discontinued twyla (ADVAIR) mouth via inhaler 8 250-50 mcg/dose 2 (two) times diskus inhaler daily. Hospital, Clinic, or Other Ordered Dose Route Frequency Start Date End Date Status Facility Administered Medication bumetanide (BUMEX) 1 MG IV Once 08/18/2017 08/18/2017 Ended injection 1 mg Active Problems Problem Noted Date Acute postoperative pain 07/24/2017 Polymorphic ventricular tachycardia (HCC) 07/19/2017 ST elevation myocardial infarction involving left circumflex coronary 2017 artery ([facility]) Chronic systolic heart failure ([facility]) 07/18/2017 H/O aortic aneurysm repair 06/12/2016 Overview: S/p TEVAR with Dr. 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[facility]) 06/11/2016 HTN (hypertension) 06/11/2016 T2DM (type 2 diabetes mellitus) ([facility]) 06/11/2016 Emphysema lung ([facility]) 06/11/2016 Resolved Problems Problem Noted Date Resolved Date Acute encephalopathy 07/24/2017 08/18/2017 Hypertensive urgency 07/24/2017 08/18/2017 Acute respiratory failure with hypoxemia ([facility]) 07/18/2017 08/18/2017 Acute renal failure, unspecified acute renal failure type 07/18/20172017 (HCC) Acute metabolic encephalopathy 07/18/2017 08/18/2017 Acute pulmonary edema (HCC) 07/18/2017 08/18/2017 Hyperglycemia 07/18/2017 08/18/2017 Cardiogenic shock (HCC) 07/18/2017 08/18/2017 Lactic acid acidosis 07/18/2017 08/18/2017 Respiratory insufficiency 08/18/2017 Encounters Date Type Specialty Care Team Description 08/18/2017 Office Visit Cardiology Mely Iniguez NP Acute on chronic systolic (congestive) heart failure (HCC) (Primary Dx) 08/12/2017 Documentation Transplant Myrna Rodriguez 08/12/2017 Telephone Cardiology Wilman Walker RN 08/09/2017 Abstract Transplant Corin Dudley 07/28/2017 Abstract Transplant Corin Dudley 07/26/2017 Documentation Transplant Radha Dickerson RN 07/26/2017 Abstract Transplant Hermann Cortes, PAULA 07/24/2017 Procedure Pass 07/24/2017 Surgery Ming Knapp IMPELLA Adam, MD PUMP 07/23/2017 Anesthesia Event Mainor Brooks MD 07/22/2017 Social Work Transplant Jey Sun Brendon, [employer]ING [employer]PA[employer] 07/22/2017 Anesthesia Event Hollis Hahn MD 07/22/2017 Procedure Pass 07/21/2017 Committee Review Transplant Hermann Cortes, PAULA 07/21/2017 Abstract Transplant Hermann Cortse, Acute combined RN 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) 07/20/2017 Abstract Transplant Giacomo Aponte 07/19/2017 Anesthesia Event Ronnie Lock MD 07/19/2017 Procedure Pass 07/19/2017 Surgery Ren Cordero PERC LVAD MD Chandni MCR - IP PROC ONLY 07/19/2017 Orders Only General Internal Medicine 07/18/2017 - Hospital Encounter Cardiology Dalia Choi, Acute combined 08/09/2017 systolic and Modesto Hassan MD congestive heart Mankidy, Babith failure (HCC);Acute MD Hira pulmonary edema (HCC);Acute renal failure with other specified pathological lesion in kidney (HCC);Acute respiratory failure with hypoxia and hypercapnia (HCC);Cardiogenic shock (HCC);ST elevation myocardial infarction involving left circumflex coronary artery (HCC);Acute metabolic encephalopathy;Abdo malissa aortic aneurysm (AAA) without rupture (HCC) 07/18/2017 Procedure Pass 07/18/2017 Surgery Oksana Stallings CATH & CORONARY MD Stephen ANGIOS after 09/29/2016 Family History Medical History Relation Name Comments Hypertension Father Diabetes Mother Hypertension Mother Diabetes Sister Relation Name Status Comments Father Mother Sister Social History Tobacco Use Types Packs/Day Years Used Date Former Smoker Smokeless Tobacco: Never Used Alcohol Use Drinks/Week oz/Week Comments No Sex Assigned at Date Recorded Not on file Last Filed Vital Signs Vital Sign Reading Time Taken Blood Pressure 88/59 08/18/2017 12:12 PM CDT Pulse 81 08/18/2017 12:12 PM CDT Temperature 36.6 C (97.9 F) 08/18/2017 12:12 PM CDT Respiratory Rate 18 08/18/2017 12:12 PM CDT Oxygen Saturation 100% 08/18/2017 12:12 PM CDT Inhaled Oxygen Concentration - - Weight 80.6 kg (177 lb 9.6 oz) 08/18/2017 12:12 PM CDT Height 165.1 cm (5' 5") 08/18/2017 12:12 PM CDT Body Mass Index 29.55 08/18/2017 12:12 PM CDT Plan of Treatment Health Maintenance Due Date Last Done Comments INFLUENZA VACCINE 01/02/2018 Implants Implanted Type Area Technical Document Writer Device Expiration Model / Identifier Date Serial / Lot Synergy Cardiovascular Coronary [place] [id number] 01/10/2018 [id number] / Implanted: Qty: 1 on 07/18/2017 by Oksana Stallings MD SCIENTIFIC / [id number] Procedures Procedure Name Priority Date/Time Associated Diagnosis Comments REMOVAL,IMPELLA PUMP 07/24/2017 9:00 AM Cardiogenic shock (HCC) CDT IMPELLA PERC LVAD 07/19/2017 12:16 PM Cardiac shock syndrome MCR - IP PROC ONLY CDT (HCC) L CATH & CORONARY 07/18/2017 6:36 AM SOB (shortness of ANGIOS CDT breath) after 09/29/2016 Results B N P (08/18/2017 2:44 PM)Only the most recent of7 resultswithin the time period is included. Component Value Ref Range BNP 867 (H) 0 - 100 pg/mL Specimen Performing Laboratory Blood [address] [address] Magnesium (08/18/2017 2:44 PM)Only the most recent of44 resultswithin the time period is included. Component Value Ref Range Magnesium 2.0 1.6 - 2.6 mg/dL Specimen Performing Laboratory Blood [address] [address] Basic Metabolic Panel (08/18/2017 2:44 PM)Only the most recent of51 resultswithin the time period is included. Component Value Ref Range Sodium 140 136 - 145 meq/L Potassium 4.6 3.5 - 5.1 meq/L Chloride 98 98 - 107 meq/L CO2 32 (H) 22 - 29 meq/L BUN 30 (H) 7 - 21 mg/dL Creatinine 2.58 (H) 0.57 - 1.25 mg/dL Glucose 105 70 - 105 mg/dL Calcium 10.3 (H) 8.4 - 10.2 mg/dL EGFR 22Comment: ESTIMATED GFR IS NOT ACCURATE mL/min/1.73 sq m CREATININE CLEARANCE IN PREDICTING GLOMERULAR FILTRATION RATE. ESTIMATED GFR IS NOT APPLICABLE FOR DIALYSIS PATIENTS. Specimen Performing Laboratory Blood [address] [address] PULMONARY FUNCTION - SCAN (08/11/2017 12:52 PM)Only the most recent of2 resultswithin the time period is included.VASCULAR DIAGRAM -SCAN (08/10/2017 12: 50 PM)Only the most recent of2 resultswithin the time period is included.EKG- SCANNED (08/10/2017 12:50 PM)RHYTHM STRIP - SCAN (08/10/2017 12:50 PM)Only the most recent of2 resultswithin the time period is included.POC-Glucose meter (11/2017 12:10 PM)Only the most recent of141 resultswithin the time period is included. Component Value Ref Range POC-Glucose Meter 225 (H)Comment: TESTED AT [address] 70 - 110 mg/[place] [address] Specimen Performing Laboratory Blood [address] [address] CBC with platelet count + automated diff (08/05/2017 4:24 AM)Only the most recent of19 resultswithin the time period is included. Component Value Ref Range WBC 8.7 3.5 - 10.5 K/L RBC 2.43 (L) 3.93 - 5.22 M/L Hemoglobin 7.5 (L) 11.2 - 15.7 GM/DL Hematocrit 24.1 (L) 34.1 - 44.9 % MCV 99.2 (H) 79.4 - 94.8 fL MCH 30.9 25.6 - 32.2 pg MCHC 31.1 (L) 32.2 - 35.5 GM/DL RDW 15.8 (H) 11.7 - 14.4 % Platelets 586 (H) 150 - 450 K/CU MM MPV 9.5 9.4 - 12.3 fL nRBC 0 0 - 0 /100 WBC % Neutros 74 % % Lymphs 15 % % Monos 8 % % Eos 2 % % Baso 1 % # Neutros 6.41 (H) 1.56 - 6.13 K/L # Lymphs 1.32 1.18 - 3.74 K/L # Monos 0.65 (H) 0.24 - 0.36 K/L # Eos 0.20 0.04 - 0.36 K/L # Baso 0.08 0.01 - 0.08 K/L Immature Granulocytes-Relative 0 0 - 1 % Specimen Performing Laboratory Blood - Arm, Left [address] [address] CBC with platelet count + automated diff (08/05/2017 4:24 AM)Only the most recent of19 resultswithin the time period is included. Specimen Performing Laboratory Blood Narrative The following orders were created for panel order CBC with platelet count + automated diff. Procedure Abnormality Status --------- ------ CBC with platelet count ...[[id number]]AbnormalFinal result Please view results for these tests on the individual orders. CARDIAC CATH REPORT - SCAN (08/04/2017 7:12 PM)Only the most recent of4 resultswithin the time period is included.Iron, TIBC, % sat. (without ferritin) (08/04/2017 6:14 AM) Component Value Ref Range Iron 55 40 - 160 ug/dL TIBC 198 (L) 250 - 450 ug/dL Iron % Saturation 28 20 - 55 % Specimen Performing Laboratory Blood - Arm, [address] [address] Calcium, Ionized (08/04/2017 6:14 AM)Only the most recent of16 resultswithin the time period is included. Component Value Ref Range Calcium, Ion 1.11 (L) 1.12 - 1.27 mmol/L pH, Blood 7.39 Specimen Performing Laboratory Blood - Arm, [address] [address] Reticulocyte count (08/04/2017 6:14 AM)Only the most recent of2 resultswithin the time period is included. Component Value Ref Range % Retic 8.3 (H) 0.5 - 1.7 % Specimen Performing Laboratory Blood - Arm, [address] [address] Phosphorus (08/04/2017 6:14 AM)Only the most recent of43 resultswithin the time period is included. Component Value Ref Range Phosphorus 4.3 2.3 - 4.7 mg/dL Specimen Performing Laboratory Blood - Arm, [address] [address] Ferritin (08/04/2017 6:14 AM)Only the most recent of2 resultswithin the time period is included. Component Value Ref Range Ferritin 445 (H) 5 - 275 ng/mL Specimen Performing Laboratory Blood - Arm, [address] [address] Comprehensive metabolic panel (08/02/2017 4:28 AM)Only the most recent of6 resultswithin the time period is included. Component Value Ref Range Protein, Total 6.9 6.0 - 8.3 gm/dL Albumin 3.2 (L) 3.5 - 5.0 g/dL Alkaline Phosphatase 55 40 - 150 U/L Total Bilirubin 0.6 0.2 - 1.2 mg/dL Sodium 139 136 - 145 meq/L Potassium 3.9 3.5 - 5.1 meq/L Chloride 100 98 - 107 meq/L CO2 27 22 - 29 meq/L BUN 15 7 - 21 mg/dL Creatinine 1.55 (H) 0.57 - 1.25 mg/dL Glucose 125 (H) 70 - 105 mg/dL Calcium 9.2 8.4 - 10.2 mg/dL AST 16 5 - 34 U/L ALT 11 6 - 55 U/L EGFR 40Comment: ESTIMATED GFR IS NOT ACCURATE mL/min/1.73 sq m CREATININE CLEARANCE IN PREDICTING GLOMERULAR FILTRATION RATE. ESTIMATED GFR IS NOT APPLICABLE FOR DIALYSIS PATIENTS. Specimen Performing Laboratory Blood - Arm, Right [address] [address] XR chest 1 view portable / bedside (08/01/2017 12:59 PM)Only the most recent of15 resultswithin the time period is included. Specimen Performing Laboratory GE RIS Narrative FINAL REPORT Chest one view compared to July 28, 2017 Discussion: There is cardiac prominence. Lungs are grossly clear. No effusion or pneumothorax. There is either hiatal hernia or aortic tortuosity. IMPRESSIONS: No significant change. Signed: Tony Hsu MD Report Verified Date/Time:08/01/2017 15:00:05 Reading Location: [facility] B1 C013W Consult Reading Room Procedure Note Interface, External Ris In - 08/01/2017 3:39 PM CDT FINAL REPORT Chest one view compared to July 28, 2017 Discussion: There is cardiac prominence. Lungs are grossly clear. No effusion or pneumothorax. There is either hiatal hernia or aortic tortuosity. IMPRESSIONS: No significant change. Signed: Tony Hsu MD Report Verified Date/Time: 08/01/2017 15:00:05 Reading Location: [facility] B1 C013W Consult Reading Room (Hemogram only) (07/31/2017 4:29 AM)Only the most recent of4 resultswithin the time period is included. Component Value Ref Range WBC 13.3 (H) 3.5 - 10.5 K/L RBC 2.65 (L) 3.93 - 5.22 M/L Hemoglobin 7.9 (L) 11.2 - 15.7 GM/DL Hematocrit 25.9 (L) 34.1 - 44.9 % MCV 97.7 (H) 79.4 - 94.8 fL MCH 29.8 25.6 - 32.2 pg MCHC 30.5 (L) 32.2 - 35.5 GM/DL RDW 15.3 (H) 11.7 - 14.4 % Platelets 580 (H) 150 - 450 K/CU MM MPV 9.7 9.4 - 12.3 fL nRBC 0 0 - 0 /100 WBC Specimen Performing Laboratory Blood - Arm, Left [address] [address] Potassium (07/29/2017 2:42 PM)Only the most recent of9 resultswithin the time period is included. Component Value Ref Range Potassium 3.7 3.5 - 5.1 meq/L Specimen Performing Laboratory Blood - Arm, Right [address] [address] Blood gas, arterial (07/29/2017 11:25 AM)Only the most recent of32 resultswithin the time period is included. Component Value Ref Range pH, Arterial 7.43 7.35 - 7.45 pCO2, Arterial 46 (H) 35 - 45 mmHg pO2, Arterial 83 80 - 90 mmHg O2 Sat, Arterial 96.5 96.0 - 97.0 % HCO3, Arterial 30 (H) 21 - 29 mmol/L Base Excess, Arterial 4.8 (H) -2.0 - 3.0 mmol/L Patient Temperature 36.9 C FIO2 36.0 % Specimen Performing Laboratory Blood, Arterial [address] [address] Pulmonary Funct Lab bedside spirometry (07/28/2017 12:06 PM) Cayden Lebron, FAGOT HEATER, COOKIE BREAKER 07/28/2017 12:06 PM [facility] PFT CHARTING REPORT Infection Control/Hand Hygiene procedures followed throughout the encounter with patient: Yes Patient Identification Method: Patient name verified on armband, and Medical record on armband, Is the order complete?: Yes Account ID#: [id number] Patient Name: Durga Cortez Birthdate: 1945 Age: 71 y.o.Sex: female Admission Date: 07/18/2017Patient Status: Inpatient Reasons/Symptom for having the Test?: a history/complaint of a dyspnea and other diagnosis/symptoms as noted Type of study/treatment ordered by physician: Bedside Spirometry without bronchodilators Lab Results Component Value Date HGB 8.5 (L) 07/28/2017 Ranges: Adult Male 13 - 16.8 g/dlAdult Female 12 - 15 g/dl 6 Minute Walk (read only) 07/28/2017 07/28/2017 07/28/2017 Pulse 99 90 91 SpO2 100 99 92 Study Date: 07/28/17tudy Time: 1140 ASSESSMENT History & Physical Mode of Arrival: Testing was performed at patient bedside Pulse: 96Resp: 16SPO2: 92 %On 2 LPM/ FiO2 Pain Assessment Pain:None TESTING/THERAPEUTICS Medications ordered or required for procedure: N/A PT EDUCATION/INSTRUCTIONS Barriers to learning: No known barriers to learning. Learning need identified: Yes, Patient/Family/Guradian was informed of the ordered study by the physician Barriers to performing study or treatment: Patient has no known disability to perform the study or treatment. DISCHARGE The study was completed in accordance with the physician's order and patient released from the lab without adverse outcome. Lactate dehydrogenase (LDH) (07/28/2017 4:11 AM)Only the most recent of8 resultswithin the time period is included. Component Value Ref Range LDH 639 (H) 125 - 220 U/L Specimen Performing Laboratory Blood [address] [address] Hepatic function panel (07/28/2017 4:11 AM)Only the most recent of11 resultswithin the time period is included. Component Value Ref Range Protein, Total 7.5 6.0 - 8.3 gm/dL Albumin 3.6 3.5 - 5.0 g/dL Total Bilirubin 0.9 0.2 - 1.2 mg/dL Bilirubin, Direct 0.4 0.1 - 0.5 mg/dL Alkaline Phosphatase 66 40 - 150 U/L AST 21 5 - 34 U/L ALT 17 6 - 55 U/L Specimen Performing Laboratory Blood [address] [address] Clostridium difficile GDH Toxin (07/27/2017 5:07 PM) Component Value Ref Range C. Difficle Toxin Negative Negative C. Difficile GDH Antigen NegativeComment: No indication of Clostridium Negative difficile infection and no colonization. Discontinue enteric isolation and therapy. Specimen Performing Laboratory Stool [address] [address] Narrative Testing performed by i-[employer] Rapid Cassette Assay.For GDH, published sensitivity of the assay is 98.7% compared to cytotoxicity testing.For Toxin AB, published sensitivity is 87.8% and specificity 99.4% compared to cytotoxicity testing. Verification of kit performance was done by the [facility] Microbiology Lab prior to clinical use. Occult blood, stool (07/27/2017 5:07 PM)Only the most recent of2 resultswithin the time period is included. Component Value Ref Range Occult blood Negative Negative Specimen Performing Laboratory Stool [address] [address] Oxygen saturation, measured (07/27/2017 10:21 AM)Only the most recent of7 resultswithin the time period is included. Component Value Ref Range O2 Saturation (Measured) 59.6 % Specimen Performing Laboratory Blood - Central Venous Line [address] [address] Lactic acid, venous, whole blood (07/27/2017 10:21 AM)Only the most recent of2 resultswithin the time period is included. Component Value Ref Range Lactate, Venous 0.7 0.5 - 2.2 mmol/L Specimen Performing Laboratory Blood - Central Venous Line [address] [address] Narrative Effective 08/06/2015: Units/Reference Range Change New: 0.5-2.2 mmol/LPrevious: 5-20 mg/dL ECHOCARDIOGRAM REPORT - SCAN (07/27/2017 9:20 AM)Only the most recent of6 resultswithin the time period is included.Procalcitonin (07/27/2017 2:31 AM) Only the most recent of2 resultswithin the time period is included. Component Value Ref Range Procalcitonin 0.28 (H) <0.05 ng/mL Specimen Performing Laboratory Blood [address] [address] Narrative SEPSIS RISK (ng/mL) Low:0.05-0.50 Intermediate: 0.51-2.00 High: >=2.01 2D Echo W/Doppler(CW/PW/Color) (07/26/2017 8:00 PM)Only the most recent of5 resultswithin the time period is included. Component Value Ref Range Ejection Fraction Specimen Performing Laboratory [facility] ECHO [facility] MKCKPRINCESS CPACS Narrative Transthoracic Echocardiography Report (TTE) Demographics Patient Name Nicole CORTEZ of Study07/26/2017 [id number] Gender Female Visit Number [id number] Race Black [id number] Number [id number] Number Date of Birth1945 ReferringConsuelo Mcclure MD Physician Age71 year(s) Spine Specialist Interpreting Physician MingoMD Fellow MOHINI Steele Procedure Type of Study TTE procedure:2DECHO W DOPPLER(CW/PW/COLOR) (STAT) Indications:Acute Chest Pain/ Suspected CAD. Clinical History COPD CAD DM HTN IMPELLA REMOVAL (07/24/17) Height: 65 inches Weight: 92.08 kg (203 lbs) BSA: 1.99 m^2 BMI: 33.78 kg/m^2 HR: 101 bpm BP: 113/65 mmHg Summary 1. The following segment(s) appear severely akinetic: inferolateral segments. Anterolateral segments are severely hypokinetic. LVEF by Levy's method of disk assessment is moderately reduced (30-34%) . 2. Estimated peak systolic PA pressure is 30-35 mmHg . 3. Visualized descending thoracic aorta size appears mild to moderately dilated . 4.3 cm Previous Study In comparison with the prior exam 07/22/17 the following changes are noted: impella has been removed and the LV EF has improved slightly . Signature Findings Left Ventricle The left ventricle is chamber size (by vol index) is severely enlarged (female - LVED vol >80ml/m2). Mild concentric LV hypertrophy. The following segment(s) appear severely akinetic: inferolateral segments. Anterolateral segments are severely hypokinetic. The other segments are mildly hypokinetic. Global LV systolic function moderately reduced . LVEF by Levy's method of disk assessment is moderately reduced (30-34%) . Grade 1 diastolic dysfunction (impaired relaxation and low-normal LA pressure). Left AtriumLA size is mildly enlarged (35-41 ml/m2) . Right VentricleRV pacing wire is visualized . The right ventricular chamber size and systolic function are within normal limits. Right Atrium RA size is normal. Aortic Valve Mild aortic regurgitation. Mitral Valve Mild MV leaflet thickening. Mild mitral regurgitation. Tricuspid ValveMild tricuspid regurgitation. Estimated peak systolic PA pressure is 30-35 mmHg . Peak systolic pressure may be underestimated; partial TR signal. Pulmonic Valve PV is not well visualized; function appears normal by Doppler visualized. AortaVisualized descending thoracic aorta size appears mild to moderately dilated . 4.3 cm PericardiumNo significant pericardial effusion is visualized. IVC/SVC/PA/PV/PleuralThe estimated RA pressure by IVC dynamics 0-5mmHg . Chambers/Structures Left Atrium LA Volume: 77.27 ml LA Area: 23.06 cm^ 2 LA Vol. Index: 39 ml/m^2 Left Ventricle LVIDd: 5.63 cm LVIDs: 4.75 cm LV Septum Diastolic: 1.1 cm LV PW Diastolic: 1.42 cmLV FS: 15.6 % LVEDV Levy's:236.99 ml LVESV Levy's:157.23 ml LVEDVI: 119 ml/m^2 LVEF Levy's: 33.7 %LVESVI: 79 ml/m^ 2 LVOT Diameter: 1.96 cm Doppler/Quantitative Measurements Mitral Valve MV Lucien. Peak: Tissue Doppler E' Lateral Velocity: 0.07 m/s Aortic Valve Peak Velocity: 2.24 m/sMean Velocity: 1.33 m/s Peak Gradient: 20.08 mmHgMean Gradient: 8.83 mmHg AV Area (continuity): 1.67 cm^2 AV VTI: 29.58 cm AV DVI: 0.55 LVOT Peak Velocity: 1.15 m/s Peak Gradient: 5.25 mmHg Mean Velocity: 0.71 m/s Mean Gradient: 2.43 mmHg LVOT Diameter: 1.96 cmLVOT VTI: 16.41 cm LVOT Area: 3.02 cm^2LVOT SV:49.49 ml LVOT CO: 5 l/minLVOT CI: 2.51 l/min/m^ 2 Tricuspid Valve TR Velocity: 2.65 m/s TR Gradient: 28.06 mmHg Procedure Note Interface, External Ris In - 07/27/2017 8:59 AM CDT Transthoracic Echocardiography Report (TTE) Demographics Patient Name DURGA CORTEZ Date of Study 07/26/2017 Gender Female Visit Number [id number] Race Black Room Number [id number] Number Date of 1945 Referring Consuelo Mcclure MD Physician Age 71 year(s) Spine Specialist Interpreting Gloria Ricci Physician MD Fellow MOHINI Steele Procedure Type of Study TTE procedure:2DECHO W DOPPLER(CW/PW/COLOR) (STAT) Indications:Acute Chest Pain/ Suspected CAD. Clinical History COPD CAD DM HTN IMPELLA REMOVAL (07/24/17) Height: 65 inches Weight: 92.08 kg (203 lbs) BSA: 1.99 m^2 BMI: 33.78 kg/m^2 HR: 101 bpm BP: 113/65 mmHg Summary 1. The following segment(s) appear severely akinetic: inferolateral segments. Anterolateral segments are severely hypokinetic. LVEF by Levy's method of disk assessment is moderately reduced (30-34%) . 2. Estimated peak systolic PA pressure is 30-35 mmHg . 3. Visualized descending thoracic aorta size appears mild to moderately dilated . 4.3 cm Previous Study In comparison with the prior exam 07/22/17 the following changes are noted: impella has been removed and the LV EF has improved slightly . Signature Findings Left Ventricle The left ventricle is chamber size (by vol index) is severely enlarged (female - LVED vol >80ml/m2). Mild concentric LV hypertrophy. The following segment(s) appear severely akinetic: inferolateral segments. Anterolateral segments are severely hypokinetic. The other segments are mildly hypokinetic. Global LV systolic function moderately reduced . LVEF by Levy's method of disk assessment is moderately reduced (30-34%) . Grade 1 diastolic dysfunction (impaired relaxation and low-normal LA pressure). Left Atrium LA size is mildly enlarged (35-41 ml/m2) . Right Ventricle RV pacing wire is visualized . The right ventricular chamber size and systolic function are within normal limits. Right Atrium RA size is normal. Aortic Valve Mild aortic regurgitation. Mitral Valve Mild MV leaflet thickening. Mild mitral regurgitation. Tricuspid Valve Mild tricuspid regurgitation. Estimated peak systolic PA pressure is 30-35 mmHg . Peak systolic pressure may be underestimated; partial TR signal. Pulmonic Valve PV is not well visualized; function appears normal by Doppler visualized. Aorta Visualized descending thoracic aorta size appears mild to moderately dilated . 4.3 cm Pericardium No significant pericardial effusion is visualized. IVC/SVC/PA/PV/Pleural The estimated RA pressure by IVC dynamics 0-5mmHg . Chambers/Structures Left Atrium LA Volume: 77.27 ml LA Area: 23.06 cm^2 LA Vol. Index: 39 ml/m^2 Left Ventricle LVIDd: 5.63 cm LVIDs: 4.75 cm LV Septum Diastolic: 1.1 cm LV PW Diastolic: 1.42 cm LV FS: 15.6 % LVEDV Levy's:236.99 ml LVESV Levy's:157.23 ml LVEDVI: 119 ml/m^2 LVEF Levy's: 33.7 % LVESVI: 79 ml/m^2 LVOT Diameter: 1.96 cm Doppler/Quantitative Measurements Mitral Valve MV Lucien. Peak: Tissue Doppler E' Lateral Velocity: 0.07 m/s Aortic Valve Peak Velocity: 2.24 m/s Mean Velocity: 1.33 m/s Peak Gradient: 20.08 mmHg Mean Gradient: 8.83 mmHg AV Area (continuity): 1.67 cm^2 AV VTI: 29.58 cm AV DVI: 0.55 LVOT Peak Velocity: 1.15 m/s Peak Gradient: 5.25 mmHg Mean Velocity: 0.71 m/s Mean Gradient: 2.43 mmHg LVOT Diameter: 1.96 cm LVOT VTI: 16.41 cm LVOT Area: 3.02 cm^2 LVOT SV:49.49 ml LVOT CO: 5 l/min LVOT CI: 2.51 l/min/m^2 Tricuspid Valve TR Velocity: 2.65 m/s TR Gradient: 28.06 mmHg TRANSFUSION SERVICE REPORT - SCAN (07/25/2017 5:42 PM)Only the most recent of3 resultswithin the time period is included.Glucose-STAT (07/24/2017 6:44 PM) Only the most recent of4 resultswithin the time period is included. Component Value Ref Range Glucose 168 (H) 70 - 105 mg/dL Specimen Performing Laboratory Blood [address] [address] Glucose-Stat Lab (07/24/2017 5:08 PM)Only the most recent of9 resultswithin the time period is included. Component Value Ref Range Glucose 208 (H) 70 - 110 mg/dL Specimen Performing Laboratory Blood, Arterial [address] [address] Prepare RBC (07/24/2017 3:53 PM) Component Value Ref Range CROSSMATCH COMPATIBLE Unit ABO A Pos UNIT NUMBER [id number] Status RETURNED FROM ISSUE Blood Bank Product RED BLOOD CELLS PRODUCT CODE [id number] CROSSMATCH COMPATIBLE Unit ABO A Pos UNIT NUMBER [id number] Status RETURNED FROM ISSUE Blood Bank Product RED BLOOD CELLS PRODUCT CODE [id number] CROSSMATCH COMPATIBLE Unit ABO A Pos UNIT NUMBER [id number] Status RETURNED FROM ISSUE Blood Bank Product RED BLOOD CELLS PRODUCT CODE [id number] CROSSMATCH COMPATIBLE Unit ABO A Pos UNIT NUMBER [id number] Status RETURNED FROM ISSUE Blood Bank Product RED BLOOD CELLS PRODUCT CODE [id number] Specimen Performing Laboratory [facility] [place] [facility]IT[facility] LABS (ABG,NA,K,H&H,GLUCOSE) (07/24/2017 12:50 PM)Only the most recent of5 resultswithin the time period is included. Specimen Performing Laboratory Blood, Arterial Narrative The following orders were created for panel order RRL CRITICAL LABS (ABG,NA,K,H&H,GLUCOSE). Procedure Abnormality Status --------- ------ Blood gas, arterial[[id number]]AbnormalFinal result Sodium Na-Stat Lab[[id number]] NormalFinal result Potassium-Stat Lab[[id number]] NormalFinal result Glucose-Stat Lab[[id number]] AbnormalFinal result HGB/HCT (H&H)-Stat Lab[[id number]] Abnormal Final result Please view results for these tests on the individual orders. Potassium-Stat Lab (07/24/2017 12:50 PM)Only the most recent of7 resultswithin the time period is included. Component Value Ref Range Potassium 3.7 3.6 - 5.5 meq/L Specimen Performing Laboratory Blood, Arterial [address] [address] Sodium Na-Stat Lab (07/24/2017 12:50 PM)Only the most recent of5 resultswithin the time period is included. Component Value Ref Range Sodium 140 135 - 148 meq/L Specimen Performing Laboratory Blood, [address] [address] HGB/HCT (H&H)-Stat Lab (07/24/2017 12:50 PM)Only the most recent of6 resultswithin the time period is included. Component Value Ref Range Hemoglobin 8.8 (L) 12.0 - 15.0 g/dL Hematocrit 26.0 (L) 36.0 - 45.0 % Specimen Performing Laboratory Blood, [address] [address] Lactic acid, arterial, whole blood (07/24/2017 12:50 PM)Only the most recent of8 resultswithin the time period is included. Component Value Ref Range Lactate, Art 0.7 0.5 - 2.2 mmol/L Specimen Performing Laboratory Blood, Arterial [address] [address] Narrative Effective 08/06/2015: Units/Reference Range Change New: 0.5-2.2 mmol/LPrevious: 5-20 mg/dL PT/aPTT (07/24/2017 2:26 AM) Component Value Ref Range Protime 16.7 (H) 11.7 - 14.7 seconds INR 1.4 <=5.9 PTT 78.5 (H) 22.5 - 36.0 seconds Specimen Performing Laboratory Blood [address] [address] Narrative RECOMMENDED COUMADIN/WARFARIN INR THERAPY RANGES STANDARD DOSE: 2.0 - 3.0 Includes: PROPHYLAXIS for venous thrombosis, systemic embolization; TREATMENT for venous thrombosis and/or pulmonary embolus. HIGH RISK: Target INR is 2.5-3.5 for patients with mechanical heart valves. Vancomycin level, trough (07/23/2017 4:12 PM)Only the most recent of2 resultswithin the time period is included. Component Value Ref Range Vancomycin Tr 17.8 10.0 - 20.0 ug/mL Specimen Performing Laboratory Blood [address] [address] Narrative If vancomycin trough level > 20 mcg/mL, hold next vancomycin dose, and contact MD and pharmacist. aPTT (07/23/2017 2:17 PM)Only the most recent of16 resultswithin the time period is included. Component Value Ref Range PTT 69.5 (H) 22.5 - 36.0 seconds Specimen Performing Laboratory Blood [address] [address] Prepare Leuko-Red RBC (07/22/2017 11:54 PM) Component Value Ref Range CROSSMATCH COMPATIBLE Unit ABO A Pos UNIT NUMBER [id number] Status TRANSFUSED Blood Bank Product RED BLOOD CELLS PRODUCT CODE [id number] Specimen Performing Laboratory Other [facility] [place] Creatinine clearance (07/22/2017 7:55 PM) Component Value Ref Range Creatinine Clearance 45.8 (L) 70.0 - 140.0 mL/min Volume, Urine 3400 ml Creatinine, Ur 36.8 mg/dL Pathologist: Анна Encarnacion MD (electronic signature) Patient Height 165.1 cm Patient Weight 84.100 kg Specimen Performing Laboratory Urine [address] [address] PERIPHERAL VASCULAR REPORT - SCAN (07/22/2017 7:20 AM)Only the most recent of2 resultswithin the time period is included.T Spot TB (07/22/2017 4:47 AM) Component Value Ref Range T-Spot TB Negative Neg Ctrl Spot Count 0 Panel A Spot 0 Panel B Spot [address] 0 Scan Result 0 Specimen Performing Laboratory Blood [facility] [address] [facility], [address] [place] [address] Transfuse Leuko-Red RBC (07/21/2017 7:00 PM)Only the most recent of2 resultswithin the time period is included.Blood typing, automated - at seperate draw time from initial type and screen (07/21/2017 5:21 PM) Component Value Ref Range ABO/RH AUTOMATED (BEAKER) A POSITIVE Specimen Performing Laboratory Blood [address] [address] Drug screen, urine, comprehensive (07/21/2017 4:19 PM) Specimen Performing Laboratory Urine [facility] [address] [place] [address] HLA Typing CII (07/21/2017 4:02 PM) Component Value Ref Range HLA-DR AG1 13 HLA-DR AG2 13 HLA-DR AG3-1 52 HLA-DR AG3-2 52 HLA-DR AG4-1 HLA-DR AG4-2 HLA-DR AG5-1 HLA-DR AG5-2 HLA-DQA1 AG 1-1 01 HLA-DQA1 AG 1-2 05 HLA-DQB1 AG 1-1 5 HLA-DQB1 AG 1-2 7 HLA-DPA1 AG 1-1 02 HLA-DPA1 AG 1-2 02 HLA-DPB1 AG 1-1 01:01 HLA-DPB1 AG 1-2 131:01 HLA-AG Notes HLA-AG Report Comments Specimen Performing Laboratory Blood [facility] HLA TESTING ONE [facility] [place], [place]: [id number], CLIA#[id number] CAP#[id number] [id number] [address] HLA Typing CI (07/21/2017 4:02 PM) Component Value Ref Range HLA-A AG1 33 HLA-A AG2 68 HLA-B AG1 7 HLA-B AG2 8 HLA-C AG1 15 HLA-C AG2 10 HLA-B BW1 6 HLA-B BW2 6 HLA-AG Notes HLA-AG Report Comments Specimen Performing Laboratory Blood [facility] HLA TESTING ONE [facility] [place], [place]: DEYANIRA, CLIA#[id number] CAP#[id number] [id number] [address] Creatinine Clearance (07/21/2017 4:02 PM) Specimen Performing Laboratory Other Narrative The following orders were created for panel order Creatinine Clearance. Procedure Abnormality Status --------- ------ Creatinine[[id number]] AbnormalFinal result Creatinine clearance[[id number]] Abnormal Final result Please view results for these tests on the individual orders. Type and screen, automated (07/21/2017 4:02 PM) Component Value Ref Range ABO/RH AUTOMATED (BEAKER) A POSITIVE Ab Scrn NEGATIVE Specimen Performing Laboratory Blood [address] [address] Cytomegalovirus antibody, IgM (07/21/2017 4:02 PM) Component Value Ref Range CMV IgM Negative Specimen Performing Laboratory Blood [address] [address] ROSLYN Titer & Pattern (07/21/2017 4:02 PM) Component Value Ref Range ROSLYN Titer 1:640 ROSLYN Pattern Homogeneous Specimen Performing Laboratory [address] [address] Troponin I (07/21/2017 4:02 PM)Only the most recent of6 resultswithin the time period is included. Component Value Ref Range Troponin I 45.70 (HH) 0.00 - 0.03 ng/mL Specimen Performing Laboratory Blood [address] [address] Narrative Troponin I (TnI) levels must be interpreted in the context of the presenting symptoms and the clinical findings. Elevated TnI levels indicate myocardial damage, but are not specific for ischemic heart disease. Elevated TnI levels are seen in patients with other cardiac conditions (including myocarditis and congestive heart failure), and slight TnI elevations occur in patients with other conditions, including sepsis, renal failure, acidosis, acute neurological disease, and persistent tachyarrhythmia. EBV-VCA antibody, IgM (07/21/2017 4:02 PM) Component Value Ref Range EBV VCA IgM Negative Specimen Performing Laboratory Blood [address] [address] EBV-VCA antibody, IgG (07/21/2017 4:02 PM) Component Value Ref Range EBV VCA IgG Positive Specimen Performing Laboratory Blood [address] [address] Vitamin D, 25-Hydroxy (07/21/2017 4:02 PM) Component Value Ref Range Vitamin D 25-Hydroxy 5.8 (L) 6.6 - 49.9 ng/mL Specimen Performing Laboratory [address] [address] Narrative Effective 01/12/2017: Reference Range Change New: 6.6-49.9 ng/mL Previous: 13.0-47.8 ng/mL Recommended Vitamin D Target Range: 30.0-40.0 ng/mL Cytomegalovirus antibody, IgG (07/21/2017 4:02 PM) Component Value Ref Range CMV IgG Negative Specimen Performing Laboratory Blood [address] [address] Direct AHG (IVETTE)/Direct Karen (07/21/2017 4:02 PM) Component Value Ref Range Direct AHG-IGG NEGATIVE Direct AHG-C3B, C3D NEGATVIE Specimen Performing Laboratory [address] [address] Varicella zoster antibody, IgG (07/21/2017 4:02 PM) Component Value Ref Range Varicella IgG 2.3 Al Specimen Performing Laboratory Blood [address] [address] Narrative VARICELLA ZOSTER RESULT INTERPRETATIONS: <=0.8 AlNonreactive:Presumed non-immune to VZV 0.9-1.0 AlEquivocal >=1.1 AlReactive:Presumed immune to VZV Anti-Nuclear Antibody (ROSLYN) (07/21/2017 4:02 PM) Component Value Ref Range ROSLYN Positive (A) Negative Specimen Performing Laboratory [address] [address] Uric acid (07/21/2017 4:02 PM) Component Value Ref Range Uric Acid 8.2 (H) 2.6 - 7.2 mg/dL Specimen Performing Laboratory Blood [address] [address] Transferrin (07/21/2017 4:02 PM) Component Value Ref Range Transferrin 166 (L) 174 - 382 mg/dL Specimen Performing Laboratory [address] [address] Protein electrophoresis, serum (07/21/2017 4:02 PM) Component Value Ref Range Albumin Fraction 3.0 (L) 3.5 - 5.5 g/dL Alpha 1 Fraction 0.4 0.2 - 0.4 g/dL Alpha 2 Fraction 0.5 0.5 - 0.9 g/dL Beta Fraction 1.0 0.6 - 1.1 g/dL Gamma Globulin Fraction 1.2 0.7 - 1.7 g/dL Interpretation Albumin decreased. Alpha globulin percentages increased. This suggests an acute phase response. Pathologist: Анна Encarnacion MD (electronic signature) Protein, Total 6.1 6.0 - 8.3 gm/dL Specimen Performing Laboratory [address] [address] Prealbumin (07/21/2017 4:02 PM) Component Value Ref Range Prealbumin 14 14 - 45 mg/dL Specimen Performing Laboratory [address] [address] Iron, serum (07/21/2017 4:02 PM) Component Value Ref Range Iron 57 40 - 160 ug/dL Specimen Performing Laboratory [address] [address] Gamma Glutamyl Transferase (GGT) (07/21/2017 4:02 PM) Component Value Ref Range GGT 52 9 - 64 U/L Specimen Performing Laboratory [address] [address] Creatinine (07/21/2017 4:02 PM) Component Value Ref Range Creatinine 2.17 (H) 0.57 - 1.25 mg/dL EGFR 27Comment: ESTIMATED GFR IS NOT ACCURATE mL/min/1.73 sq m CREATININE CLEARANCE IN PREDICTING GLOMERULAR FILTRATION RATE. ESTIMATED GFR IS NOT APPLICABLE FOR DIALYSIS PATIENTS. Specimen Performing Laboratory [address] [address] Amylase (07/21/2017 4:02 PM) Component Value Ref Range Amylase 228 (H) 25 - 125 U/L Specimen Performing Laboratory [address] [address] Lipid panel (07/21/2017 4:02 PM) Component Value Ref Range Triglycerides 122 mg/dL Cholesterol 204 mg/dL HDL 85 mg/dL LDL Calculated 95 mg/dL Specimen Performing Laboratory [address] [address] Narrative Triglyceride Reference Range: Low Risk <150 [id number] High Risk 200-499 Very High Risk>=500 Cholesterol Reference Range: Low Risk <200 Nllxovsbdv207-595 High Risk>240 HDL Cholesterol Reference Range: Low Risk >=60 High Risk <40 LDL Cholesterol Reference Range: Optimal<100 Near Ijcehiy893-549 Eyivaicxpz406-437 Mkhe776-497 Very High >=190 Hepatitis A antibody, IgG (07/21/2017 4:01 PM) Component Value Ref Range Hep A IgG Reactive (A) Nonreactive Specimen Performing Laboratory [address] [address] HIV-1 Antigen with HIV-1/2 Antibody (07/21/2017 4:01 PM) Component Value Ref Range HIV-1 Antigen with HIV 1&2 Antibody Nonreactive Nonreactive Specimen Performing Laboratory [address] [address] Toxoplasma gondii antibody, IgM (07/21/2017 4:01 PM) Component Value Ref Range Toxoplasma gondii IgM Negative Specimen Performing Laboratory [address] [address] Herpes virus antibody, IgM (07/21/2017 4:01 PM) Component Value Ref Range Herpes Virus IGM Negative Specimen Performing Laboratory [address] [address] Narrative HSV IgM 1=NEGATIVE HSV IgM 2=NEGATIVE Hepatitis panel, acute (07/21/2017 4:01 PM) Component Value Ref Range Hep A IgM Nonreactive Nonreactive Hep B C IgM Nonreactive Nonreactive Hepatitis C Ab Nonreactive Nonreactive hepatitis B Surface Ag Nonreactive Nonreactive Specimen Performing Laboratory Blood [address] [address] Hepatitis B core antibody, total (07/21/2017 4:01 PM) Component Value Ref Range Hep B Core Total Ab Nonreactive Nonreactive Specimen Performing Laboratory Blood [address] [address] Herpes virus antibody, IgG (07/21/2017 4:01 PM) Component Value Ref Range Herpes Virus IGG Negative Specimen Performing Laboratory Blood [address] [address] Narrative HSV IgG 1=NEGATIVE HSV IgG 2=NEGATIVE Toxoplasma gondii antibody, IgG (07/21/2017 4:01 PM) Component Value Ref Range Toxoplasma gondii IgG Negative Specimen Performing Laboratory [address] [address] RPR (07/21/2017 4:01 PM) Component Value Ref Range RPR Nonreactive Nonreactive Specimen Performing Laboratory [address] [address] Arterial doppler legs bilateral (07/21/2017 3:15 PM) Component Value Ref Range Ejection Fraction Specimen Performing Laboratory [facility] Impressions Right Impression 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 1. The LAM's cannot be obtained due to absent flow in the posterior tibial and dorsalis pedis arteries. 2. The TBI cannot be obtained due to absent flow to all the digits by PPG waveforms. Left Impression 1. The common femoral artery is patent with triphasic Doppler waveforms. 2. The profunda femoral artery is patent with an elevated velocity of 213 cm/sec. 3. The superficial femoral and popliteal arteries are patent with triphasic Doppler waveforms. 4. The posterior tibial and peroneal arteries are patent with monophasic Doppler waveforms. 5. There is no flow visualized in the mid to distal anterior tibial artery. 6. The PT pressure is 63 mmHg with an LAM of 0.61 (within moderate obstruction range) and the DP LAM cannot be obtained due to no demonstrable flow in the dorsalis pedis artery. 7. The 1st digit has decreased flow by PPG waveforms and the 2nd, 3rd, 4th and 5th digits have absent flow. 8. The great toe pressure is 17 mmHg with an abnormal TBI of 0.16. Conclusions Summary Arterial pressures and Doppler analysis were performed on the left lower extremity. The right leg was not visualized due to Impella. The common femoral artery was patent with triphasic Doppler waveforms. The profunda femoral artery was patent with an elevated velocity of 213 cm/sec. The superficial femoral and popliteal arteries were patent with triphasic Doppler waveforms. The posterior tibial and peroneal arteries were patent with monophasic Doppler waveforms. There was no flow visualized in the mid to distal anterior tibial artery. The PT LAM was within moderate obstruction range and the DP LAM could not be obtained due to no demonstrable flow in the dorsalis pedis artery. The 1st digit had decreased flow by PPG waveforms and the 2nd, 3rd, 4th and 5th digits had absent flow. The TBI was abnormal. The left LAM's were not obtained due to absent flow in the posterior tibial and dorsalis pedis arteries. The TBI was not obtained due to absent flow by PPG waveforms. Signature Velocities are measured in cm/s ; Diameters are measured in cm LE Duplex Measurements Right Left + + + + + + + + + + !Location ! !PSV !EDV !Waveform! !PSV !EDV !Waveform! + + + + + + + + + + !Mid Common Femoral ! !107 !! ! + + + + + ------ -----+ !Prox PFA ! !213 !! ! + + + + + ------ -----+ !Prox SFA ! ! 75.6 !! ! + + + + + ------ -----+ !Mid SFA ! !153 !! ! + + + + + ------ -----+ !Dist SFA ! ! 49.9 !! ! + + + + + ------ -----+ !Prox Popliteal ! !38.5 !! ! + + + + + ------ -----+ !Dist Popliteal ! !40.5 !! ! + + + + + ------ -----+ !Prox FLOATMAN ! ! 14.9 !! ! + + + + + ------ -----+ !Mid FLOATMAN ! !31.8 ! ! ! + + + + + ------ -----+ !Dist FLOATMAN ! ! 37.3 !17.3! ! + + + + + ------ -----+ !Prox CLARENCE ! !78 !! ! + + + + + ------ -----+ !Mid CLARENCE ! !0 !! ! + + + + + ------ -----+ !Dist CLARENCE ! !0 !! ! + + + + + ------ -----+ !Dist Peroneal ! !28.9 ! ! ! + + + + + ------ -----+ Narrative [facility] - Lower Extremity Arterial Duplex Demographics Patient Name DANA, Date of Study07/21/2017 DURGA [id number] Visit Number [id number] Female Accession Number [id number] of Birth1945 [facility] Room [id number] Physician Moshe RhodesInterpreviviana Mooney MD, RVT Zach Duran RVT Procedure Type of Study: Extremities Arteries: Lower Extremities Arterial Duplex, ARTERIAL DOPPLER LEGS, BILATERAL. Indications for Study:Heart transplant evaluation . Patient Status:Routine. Study Location:Portable. Technical Quality:Technically Difficult. Risk Factors History of Disease + +----+ + !Diagnosis !Date!Comments! + +----+ + !History/Risk Factors: !!COPD, DM, HTN, CAD! + +----+ + Procedure Note Interface, External Ris In - 07/22/2017 6:01 AM CDT [facility] - Lower Extremity Arterial Duplex Demographics Patient Name DANA, Date of Study 07/21/2017 DURGA Age 71 Visit Number [id number] Gender Female Accession Number [id number] Date of 1945 Referring JUSTYN LEVY Room Number 2C34 Physician Spine Specialist Aga Mooney MD, RVT Physician GERARDO Duran RVT Procedure Type of Study: Extremities Arteries: Lower Extremities Arterial Duplex, ARTERIAL DOPPLER LEGS, BILATERAL. Indications for Study:Heart transplant evaluation . Patient Status:Routine. Study Location:Portable. Technical Quality:Technically Difficult. Risk Factors History of Disease + +----+ + !Diagnosis !Date!Comments ! + +----+ + !History/Risk Factors: ! !COPD, DM, HTN, CAD ! 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 1. The LAM's cannot be obtained due to absent flow in the posterior tibial and dorsalis pedis arteries. 2. The TBI cannot be obtained due to absent flow to all the digits by PPG waveforms. Left Impression 1. The common femoral artery is patent with triphasic Doppler waveforms. 2. The profunda femoral artery is patent with an elevated velocity of 213 cm/sec. 3. The superficial femoral and popliteal arteries are patent with triphasic Doppler waveforms. 4. The posterior tibial and peroneal arteries are patent with monophasic Doppler waveforms. 5. There is no flow visualized in the mid to distal anterior tibial artery. 6. The PT pressure is 63 mmHg with an LAM of 0.61 (within moderate obstruction range) and the DP LAM cannot be obtained due to no demonstrable flow in the dorsalis pedis artery. 7. The 1st digit has decreased flow by PPG waveforms and the 2nd, 3rd, 4th and 5th digits have absent flow. 8. The great toe pressure is 17 mmHg with an abnormal TBI of 0.16. Conclusions Summary Arterial pressures and Doppler analysis were performed on the left lower extremity. The right leg was not visualized due to Impella. The common femoral artery was patent with triphasic Doppler waveforms. The profunda femoral artery was patent with an elevated velocity of 213 cm/sec. The superficial femoral and popliteal arteries were patent with triphasic Doppler waveforms. The posterior tibial and peroneal arteries were patent with monophasic Doppler waveforms. There was no flow visualized in the mid to distal anterior tibial artery. The PT LAM was within moderate obstruction range and the DP LAM could not be obtained due to no demonstrable flow in the dorsalis pedis artery. The 1st digit had decreased flow by PPG waveforms and the 2nd, 3rd, 4th and 5th digits had absent flow. The TBI was abnormal. The left LAM's were not obtained due to absent flow in the posterior tibial and dorsalis pedis arteries. The TBI was not obtained due to absent flow by PPG waveforms. Signature Velocities are measured in cm/s ; Diameters are measured in cm LE Duplex Measurements Right Left + + + ------+ + + + +-------- + + !Location ! !PSV !EDV !Waveform ! !PSV !EDV !Waveform ! + + + ------+ + + + +-------- + + !Mid Common Femoral ! !107 ! ! ! + + + +------- + + !Prox PFA ! !213 ! ! ! + + + +------- + + !Prox SFA ! !75.6 ! ! ! + + + +------- + + !Mid SFA ! !153 ! ! ! + + + +------- + + !Dist SFA ! !49.9 ! ! ! + + + +------- + + !Prox Popliteal ! !38.5 ! ! ! + + + +------- + + !Dist Popliteal ! !40.5 ! ! ! + + + +------- + + !Prox FLOATMAN ! !14.9 ! ! ! + + + +------- + + !Mid FLOATMAN ! !31.8 ! ! ! + + + +------- + + !Dist FLOATMAN ! !37.3 !17.3 ! ! + + + +------- + + !Prox CLARENCE ! !78 ! ! ! + + + +------- + + !Mid CLARENCE ! !0 ! ! ! + + + +------- + + !Dist CLARENCE ! !0 ! ! ! + + + +------- + + !Dist Peroneal ! !28.9 ! ! ! + + + +------- + + Carotid doppler bilateral (07/21/2017 3:15 PM) Component Value Ref Range Ejection Fraction Specimen Performing Laboratory [facility] Impressions Right Impression 1. There is <50% diameter reduction (approximately 24% by 2-D measurement) in the internal carotid artery with a peak velocity of 31 cm/sec and heterogeneous plaque. 2. The external carotid artery is within normal limits. 3. There is non-occluding plaque in the common carotid artery. 4. The vertebral artery flow is antegrade and normal. 5. The subclavian artery is within normal limits where visualized. Left Impression 1. There is <50% diameter reduction (approximately 15% by 2-D measurement) in the internal carotid artery with a peak velocity of 61 cm/sec and heterogeneous plaque. 2. The external carotid artery is within normal limits. 3. There is non-occluding plaque in the common carotid artery. 4. The vertebral artery flow is antegrade and normal. 5. The subclavian artery is within normal limits where visualized. Conclusions Summary Carotid duplex scanning and color flow imaging were performed bilaterally. The arteries were adequately visualized. The bilateral internal carotid arteries had <50% hemodynamically insignificant stenosis (approximately 24% by 2-D measurement on the right, approximately 15% by 2-D measurement on the left) with heterogeneous plaque. The vertebral artery flow was antegrade and normal bilaterally. The subclavian arteries were patent with normal flow bilaterally where visualized. Signature Velocities are measured in cm/s ; Diameters are measured in cm Carotid Right Measurements + +----+----+-----+ + + + !Location !PSV !EDV !Angle!%Stenosis 2D!%Stenosis Doppler! Tortuosity ! + +----+----+-----+ + + + !Prox CCA !86.2!26.4!60 !! ! ! + +----+----+-----+ + + + !Dist CCA !53.4!21.7!60 !! ! ! + +----+----+-----+ + + + !Prox ICA !31.4!14.1!60 !! ! ! + +----+----+-----+ + + + !Dist ICA !37.1!16.9!0!! ! ! + +----+----+-----+ + + + !Prox ECA !41.8!9.07!42 !! ! ! + +----+----+-----+ + + + !Vertebral!73.5!24.4!60 !! ! ! + +----+----+-----+ + + + !Prox Subclavian!78.6!0 !60 !! ! ! + +----+----+-----+ + + + - There is antegrade vertebral flow noted on the right side. - Additional Measurements:ICAPSV/CCAPSV 0.69.ICAEDV/CCAEDV 0.64. Carotid Left Measurements + +----+----+-----+ + + + !Location !PSV !EDV !Angle!%Stenosis 2D!%Stenosis Doppler! Tortuosity ! + +----+----+-----+ + + + !Prox CCA !71.5!23.6!60 !! ! ! + +----+----+-----+ + + + !Dist CCA !73.3!23.5!60 !! ! ! + +----+----+-----+ + + + !Prox ICA !61.6!22.3!60 !! ! ! + +----+----+-----+ + + + !Dist ICA !60!22.8!48 !! ! ! + +----+----+-----+ + + + !Prox ECA !53.9!12.9!60 !! ! ! + +----+----+-----+ + + + !Vertebral!58.1!23.3!52 !! ! ! + +----+----+-----+ + + + !Prox Subclavian!84.1!0 !60 !! ! ! + +----+----+-----+ + + + - There is antegrade vertebral flow noted on the left side. - Additional Measurements:ICAPSV/CCAPSV 0.84.ICAEDV/CCAEDV 0.97. Narrative [facility] - Carotid Duplex Study Demographics Patient Name DANA, Date of Study07/21/2017 DURGA [id number] Visit Number [id number] Female Accession Number [id number] of Birth1945 Ramona Gibbs [id number] Physician SonographMagdy Tejedaterpreting Sunny Mooney MD, RVT PhysicianRPVI Procedure Type of Study: Cerebral: Carotid, CAROTID DOPPLER, BILATERAL. Indications for Study:Heart transplant evaluation . Patient Status:Routine. Study Location:Portable. Technical Quality:Technically Difficult. Risk Factors History of Disease + +----+ + !Diagnosis !Date!Comments! + +----+ + !History/Risk Factors: !!COPD, DM, HTN, CAD! + +----+ + Procedure Note Interface, External Ris In - 07/22/2017 6:02 AM CDT [facility] - Carotid Duplex Study Demographics Patient Name DANA, Date of Study 07/21/2017 DURGA Age 71 Visit Number [id number] Gender Female Accession Number [id number] Date of 1945 Referring Justyn Levy MD Room Number 2C34 Physician Spine Specialist Kindra Duran Interpreting Sunny Mooney MD, RVT Physician RPVI Procedure Type of Study: Cerebral: Carotid, CAROTID DOPPLER, BILATERAL. Indications for Study:Heart transplant evaluation . Patient Status:Routine. Study Location:Portable. Technical Quality:Technically Difficult. Risk Factors History of Disease + +----+ + !Diagnosis !Date!Comments ! + +----+ + !History/Risk Factors: ! !COPD, DM, HTN, CAD ! + +----+ + Impressions Right Impression 1. There is <50% diameter reduction (approximately 24% by 2-D measurement) in the internal carotid artery with a peak velocity of 31 cm/sec and heterogeneous plaque. 2. The external carotid artery is within normal limits. 3. There is non-occluding plaque in the common carotid artery. 4. The vertebral artery flow is antegrade and normal. 5. The subclavian artery is within normal limits where visualized. Left Impression 1. There is <50% diameter reduction (approximately 15% by 2-D measurement) in the internal carotid artery with a peak velocity of 61 cm/sec and heterogeneous plaque. 2. The external carotid artery is within normal limits. 3. There is non-occluding plaque in the common carotid artery. 4. The vertebral artery flow is antegrade and normal. 5. The subclavian artery is within normal limits where visualized. Conclusions Summary Carotid duplex scanning and color flow imaging were performed bilaterally. The arteries were adequately visualized. The bilateral internal carotid arteries had <50% hemodynamically insignificant stenosis (approximately 24% by 2-D measurement on the right, approximately 15% by 2-D measurement on the left) with heterogeneous plaque. The vertebral artery flow was antegrade and normal bilaterally. The subclavian arteries were patent with normal flow bilaterally where visualized. Signature Velocities are measured in cm/s ; Diameters are measured in cm Carotid Right Measurements + +----+----+-----+ + + + !Location !PSV !EDV !Angle!%Stenosis 2D!%Stenosis Doppler!Tortuosity ! + +----+----+-----+ + + + !Prox CCA !86.2!26.4!60 ! ! ! ! + +----+----+-----+ + + + !Dist CCA !53.4!21.7!60 ! ! ! ! + +----+----+-----+ + + + !Prox ICA !31.4!14.1!60 ! ! ! ! + +----+----+-----+ + + + !Dist ICA !37.1!16.9!0 ! ! ! ! + +----+----+-----+ + + + !Prox ECA !41.8!9.07!42 ! ! ! ! + +----+----+-----+ + + + !Vertebral !73.5!24.4!60 ! ! ! ! + +----+----+-----+ + + + !Prox Subclavian!78.6!0 !60 ! ! ! ! + +----+----+-----+ + + + - There is antegrade vertebral flow noted on the right side. - Additional Measurements:ICAPSV/CCAPSV 0.69.ICAEDV/CCAEDV 0.64. Carotid Left Measurements + +----+----+-----+ + + + !Location !PSV !EDV !Angle!%Stenosis 2D!%Stenosis Doppler!Tortuosity ! + +----+----+-----+ + + + !Prox CCA !71.5!23.6!60 ! ! ! ! + +----+----+-----+ + + + !Dist CCA !73.3!23.5!60 ! ! ! ! + +----+----+-----+ + + + !Prox ICA !61.6!22.3!60 ! ! ! ! + +----+----+-----+ + + + !Dist ICA !60 !22.8!48 ! ! ! ! + +----+----+-----+ + + + !Prox ECA !53.9!12.9!60 ! ! ! ! + +----+----+-----+ + + + !Vertebral !58.1!23.3!52 ! ! ! ! + +----+----+-----+ + + + !Prox Subclavian!84.1!0 !60 ! ! ! ! + +----+----+-----+ + + + - There is antegrade vertebral flow noted on the left side. - Additional Measurements:ICAPSV/CCAPSV 0.84.ICAEDV/CCAEDV 0.97. Hemoglobin and hematocrit (07/21/2017 10:33 AM) Component Value Ref Range Hemoglobin 7.9 (L) 11.2 - 15.7 GM/DL Hematocrit 26.5 (L) 34.1 - 44.9 % Specimen Performing Laboratory [place] [address] Limited 2D Echocardiogram (07/20/2017 10:01 AM) Component Value Ref Range Ejection Fraction Specimen Performing Laboratory [facility] Narrative Transthoracic Echocardiography Report (TTE) Demographics Patient Name DANA, Date of Study 07/20/2017 DURGA [id number] Female Visit Number [id number] Black [id number] Room Number 2C34 Number Date of Birth1945Referring Physician Lauren Mckinney Age71 year(s)Spine Specialist Levy STEPHENS AnalystAriadna Interpreting Ubaldo Aguila Physician Procedure Type of Study TTE procedure:LIMITED 2D ECHOCARDIOGRAM (STAT) Indications:Impella Position and RV Function evaluation. Clinical History Ischemic Cardiomyopathy COPD Coronary Artery Disease Diabetes Hypertension S/P L Cath & PCI 06/12/16 S/P Impella HGB 9.7 HCT 31.0 % Height: 65 inches Weight: 92.08 kg (203 lbs) BSA: 1.99 m^2 BMI: 33.78 kg/m^2 HR: 102 bpm BP: 134/80 mmHg Summary 1. LVEF by Levy's method of disk assessment is moderately reduced (<20 %) . 2. The left ventricle is chamber size (by vol index) is moderately enlarged (female - LVED vol -71-80ml/m2). 3. The Impella LVAD inflow zone position is suboptimal, too close to the Aortic Valve . Previous Study Compared to the previous study there was no significant change. Signature Findings Technical Quality: Technically adequate exam. Left Ventricle The LV endocardium is adequately visualized. The left ventricle is chamber size (by vol index) is moderately enlarged (female - LVED vol -71-80ml/m2). Moderate concentric LV hypertrophy. The following segments appear akinetic: base mid and apical inferior, base, mid and apical anterior, mid and apical anterolateral, inferolateral All the other segments are moderately hypokinetic . Global LV systolic function severely reduced . LVEF by Levy's method of disk assessment is moderately reduced (<20 %) . Left AtriumLA size is normal (16-34 ml/m2) . Right VentricleRV chamber size is normal . Global RV systolic function is low normal . Right Atrium RA size is normal. Atrial SeptumThe interatrial septum is not well visualized. Aortic Valve Normal AoV structure. Mitral Valve Mild MV leaflet thickening. Tricuspid ValveTV structure is normal. Pulmonic Valve Normal PV structure. AortaAortic root size (SInus of Valsalva diameter) is indeterminate (not well seen) . PericardiumNo pericardial effusion is visualized. IVC/SVC/PA/PV/PleuralThe estimated RA pressure by IVC dynamics 3 mmHg . [facility] SupportAn Impella percutaneous LVAD is present. The Impella LVAD inflow zone is 3 cm from the aortic annulus. The Impella LVAD inflow zone position is suboptimal, too close to the Aortic Valve . Chambers/Structures Left Atrium LA Volume: 65.4 mlLA Area: 22.82 cm^2 LA Vol. Index: 33 ml/m^2 Left Ventricle LVIDd: 4.97 cm LVIDs: 5.11 cm LV Septum Diastolic: 1.65 cm LV PW Diastolic: 1.65 cmLV FS: -2.8 % LVEDV Levy's:155.46 ml LVESV Levy's:131.3 mlLVEDVI: 78 ml/ m^2 LVEF Levy's: 15.5 %LVESVI: 66 ml/m^2 LVOT Diameter: 2.22 cm Right Atrium RA Vol. (Sngl Plane): 41.91 ml Doppler/Quantitative Measurements LVOT LVOT Diameter: 2.22 cm LVOT Area: 3.87 cm^2 Procedure Note Interface, External Ris In - 07/20/2017 2:15 PM CDT Transthoracic Echocardiography Report (TTE) Demographics Patient Name DANA, Date of Study 07/20/2017 DURGA Gender Female Visit Number [id number] Race Black Room Number 2C34 Number Date of 1945 Referring Physician Lauren Mckinney Age 71 year(s) Spine Specialist Levy Santiago RCS [employer] Luisa Interpreting Ubaldo Aguila Physician Procedure Type of Study TTE procedure:LIMITED 2D ECHOCARDIOGRAM (STAT) Indications:Impella Position and RV Function evaluation. Clinical History Ischemic Cardiomyopathy COPD Coronary Artery Disease Diabetes Hypertension S/P L Cath & PCI 06/12/16 S/P Impella HGB 9.7 HCT 31.0 % Height: 65 inches Weight: 92.08 kg (203 lbs) BSA: 1.99 m^2 BMI: 33.78 kg/m^2 HR: 102 bpm BP: 134/80 mmHg Summary 1. LVEF by Levy's method of disk assessment is moderately reduced (<20 %) . 2. The left ventricle is chamber size (by vol index) is moderately enlarged (female - LVED vol -71-80ml/m2). 3. The Impella LVAD inflow zone position is suboptimal, too close to the Aortic Valve . Previous Study Compared to the previous study there was no significant change. Signature Findings Technical Quality: Technically adequate exam. Left Ventricle The LV endocardium is adequately visualized. The left ventricle is chamber size (by vol index) is moderately enlarged (female - LVED vol -71-80ml/m2). Moderate concentric LV hypertrophy. The following segments appear akinetic: base mid and apical inferior, base, mid and apical anterior, mid and apical anterolateral, inferolateral All the other segments are moderately hypokinetic . Global LV systolic function severely reduced . LVEF by Elvy's method of disk assessment is moderately reduced (<20 %) . Left Atrium LA size is normal (16-34 ml/m2) . Right Ventricle RV chamber size is normal . Global RV systolic function is low normal . Right Atrium RA size is normal. Atrial Septum The interatrial septum is not well visualized. Aortic Valve Normal AoV structure. Mitral Valve Mild MV leaflet thickening. Tricuspid Valve TV structure is normal. Pulmonic Valve Normal PV structure. Aorta Aortic root size (SInus of Valsalva diameter) is indeterminate (not well seen) . Pericardium No pericardial effusion is visualized. IVC/SVC/PA/PV/Pleural The estimated RA pressure by IVC dynamics 3 mmHg . [facility] Circ Support An Impella percutaneous LVAD is present. The Impella LVAD inflow zone is 3 cm from the aortic annulus. The Impella LVAD inflow zone position is suboptimal, too close to the Aortic Valve . Chambers/Structures Left Atrium LA Volume: 65.4 ml LA Area: 22.82 cm^2 LA Vol. Index: 33 ml/m^2 Left Ventricle LVIDd: 4.97 cm LVIDs: 5.11 cm LV Septum Diastolic: 1.65 cm LV PW Diastolic: 1.65 cm LV FS: -2.8 % LVEDV Levy's:155.46 ml LVESV Levy's:131.3 ml LVEDVI: 78 ml/m^2 LVEF Levy's: 15.5 % LVESVI: 66 ml/m^2 LVOT Diameter: 2.22 cm Right Atrium RA Vol. (Sngl Plane): 41.91 ml Doppler/Quantitative Measurements LVOT LVOT Diameter: 2.22 cm LVOT Area: 3.87 cm^2 Urine culture (07/20/2017 7:11 AM)Only the most recent of2 resultswithin the time period is included. Component Value Ref Range Result No growth Specimen Performing Laboratory Urine - Urine, [place] [address] [address] Blood culture (07/20/2017 7:10 AM)Only the most recent of4 resultswithin the time period is included. Component Value Ref Range Result No growth in 5 days Specimen Performing Laboratory Blood - Line, Venous [address] [address] Prothromin time/INR (07/19/2017 3:48 PM)Only the most recent of3 resultswithin the time period is included. Component Value Ref Range Protime 16.4 (H) 11.7 - 14.7 seconds INR 1.3 <=5.9 Specimen Performing Laboratory Blood [address] [address] Narrative RECOMMENDED COUMADIN/WARFARIN INR THERAPY RANGES STANDARD DOSE: 2.0 - 3.0 Includes: PROPHYLAXIS for venous thrombosis, systemic embolization; TREATMENT for venous thrombosis and/or pulmonary embolus. HIGH RISK: Target INR is 2.5-3.5 for patients with mechanical heart valves. Fibrinogen (07/19/2017 3:48 PM)Only the most recent of2 resultswithin the time period is included. Component Value Ref Range Fibrinogen 303 225 - 434 mg/dl Specimen Performing Laboratory Blood [address] [address] POC ACTIVATED CLOTTING TIME (07/19/2017 1:29 PM)Only the most recent of4 resultswithin the time period is included. Component Value Ref Range Activated Clotting Time 131Comment: TESTED AT [address] sec [address] Specimen Performing Laboratory Blood [address] [address] Creatine Kinase (CK), Total and MB (07/19/2017 11:24 AM) Component Value Ref Range Total CK 2405 (H) 29 - 200 U/L CK-MB 65.6 (H) 0.0 - 6.6 ng/mL MB Relative Index 2.7 % Specimen Performing Laboratory Blood - Line, Arterial [facility] [address] [place] [address] Narrative CK-MB Reference Range: <6.7Normal 6.7-10.0Borderline >10.0 Abnormal ECG 12 lead (07/19/2017 9:00 AM)Only the most recent of2 resultswithin the time period is included. Specimen Performing Laboratory GE MUSE Narrative Ventricular Rate 104 BPM Atrial Rate 104 BPM QRS Duration 98 ms Q-T Interval 338 ms QTC Calculation(Bazett) 444 ms P Harper -8 degrees R Harper -22 degrees T Harper 82 degrees Sinus tachycardia inferoposterior infarct diffuse st changes Abnormal ECG When compared with ECG of 19-JUL-2017 02:30, Questionable change in initial forces of Inferior leads T wave inversion more evident in Anterior leads Confirmed by MD Chacon Roberto ([id number]) on 07/19/2017 1:19:16 PM Procedure Note Interface, External Ris In - 07/19/2017 1:19 PM CDT Ventricular Rate 104 BPM Atrial Rate 104 BPM QRS Duration 98 ms Q-T Interval 338 ms QTC Calculation(Bazett) 444 ms P Harper -8 degrees R Harper -22 degrees T Harper 82 degrees Sinus tachycardia inferoposterior infarct diffuse st changes Abnormal ECG When compared with ECG of 19-JUL-2017 02:30, Questionable change in initial forces of Inferior leads T wave inversion more evident in Anterior leads Confirmed by MD Chacon Roberto ([id number]) on 07/19/2017 1:19:16 PM Lidocaine level (07/19/2017 8:16 AM) Component Value Ref Range Lidocaine Lvl 3.2 1.5 - 5.0 ug/mL Specimen Performing Laboratory Blood - Line, Arterial [facility] [address] [place] [address] CT chest without IV contrast (07/19/2017 7:24 AM) Specimen Performing Laboratory Deliv RIS Narrative FINAL REPORT TECHNIQUE: CT scan of the chest WITHOUT intravenous contrast. Dose modulation, iterative reconstruction, and/or weight-based adjustment of the mA/kV was utilized to reduce the radiation dose to as low as reasonably achievable. INDICATION: 71-year-old woman with abnormal chest radiograph. COMPARISON: Chest radiograph from earlier same date, chest CTA 06/12/2016. FINDINGS: ABSENCE OF INTRAVENOUS CONTRAST DECREASES SENSITIVITY FOR DETECTION OF FOCAL LESIONS AND VASCULAR PATHOLOGY. LINES/TUBES: Endotracheal tube terminates approximately 3.1 cm above the toro. Intra-aortic balloon pump in place, the radiopaque marker terminates in the distal aortic arch, distal to the left subclavian artery. Partially visualized nasogastric/orogastric tube courses into the stomach. LUNGS AND AIRWAYS: Central airways are patent. Moderate centrilobular emphysematous changes. Consolidative opacities in the dependent portions of both lower lobes adjacent to the pleural effusions. Mild groundglass opacities in the lingula. Unchanged benign 3 mm subpleural nodule in the left lower lobe (axial lung window series image 33). PLEURA: Trace bilateral pleural effusions. HEART AND MEDIASTINUM: The visualized thyroid gland is normal. No significant mediastinal, hilar, or axillary lymphadenopathy. Unchanged cardiomegaly. No pericardial effusion. Atherosclerotic calcifications in the thoracic aorta. 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 SOFT TISSUES AND BONES: Unremarkable. UPPER ABDOMEN: Unremarkable. IMPRESSION: Consolidative opacities in both lower lobes likely represent atelectasis, however superimposed pneumonia/aspiration cannot be excluded. Focal groundglass opacities in the lingula, atelectasis versus infection/inflammation. Moderate emphysema. Increased aneurysmal dilatation of the descending thoracic aorta above the level of the diaphragmatic crura. Signed: Lynnette Castro MD Report Verified Date/Time:07/19/2017 07:50:43 Reading Location: [facility] Diagnostic Imaging Reading Room - [place] [address] Procedure Note Interface, External Ris In - 07/19/2017 7:52 AM CDT FINAL REPORT TECHNIQUE: CT scan of the chest WITHOUT intravenous contrast. Dose modulation, iterative reconstruction, and/or weight-based adjustment of the mA/kV was utilized to reduce the radiation dose to as low as reasonably achievable. INDICATION: 71-year-old woman with abnormal chest radiograph. COMPARISON: Chest radiograph from earlier same date, chest CTA 06/12/2016. FINDINGS: ABSENCE OF INTRAVENOUS CONTRAST DECREASES SENSITIVITY FOR DETECTION OF FOCAL LESIONS AND VASCULAR PATHOLOGY. LINES/TUBES: Endotracheal tube terminates approximately 3.1 cm above the toro. Intra-aortic balloon pump in place, the radiopaque marker terminates in the distal aortic arch, distal to the left subclavian artery. Partially visualized nasogastric/orogastric tube courses into the stomach. LUNGS AND AIRWAYS: Central airways are patent. Moderate centrilobular emphysematous changes. Consolidative opacities in the dependent portions of both lower lobes adjacent to the pleural effusions. Mild groundglass opacities in the lingula. Unchanged benign 3 mm subpleural nodule in the left lower lobe (axial lung window series image 33). PLEURA: Trace bilateral pleural effusions. HEART AND MEDIASTINUM: The visualized thyroid gland is normal. No significant mediastinal, hilar, or axillary lymphadenopathy. Unchanged cardiomegaly. No pericardial effusion. Atherosclerotic calcifications in the thoracic aorta. 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 SOFT TISSUES AND BONES: Unremarkable. UPPER ABDOMEN: Unremarkable. IMPRESSION: Consolidative opacities in both lower lobes likely represent atelectasis, however superimposed pneumonia/aspiration cannot be excluded. Focal groundglass opacities in the lingula, atelectasis versus infection/inflammation. Moderate emphysema. Increased aneurysmal dilatation of the descending thoracic aorta above the level of the diaphragmatic crura. Signed: Lynnette Castro MD Report Verified Date/Time: 07/19/2017 07:50:43 Reading Location: [facility] Diagnostic Imaging Reading Room - [place] [address] Creatine Kinase (CK) (07/19/2017 2:40 AM) Component Value Ref Range Total CK 2888 (H) 29 - 200 U/L Specimen Performing Laboratory Blood [facility] [address] [address] Sputum Culture + Gram Stain (07/18/2017 3:38 PM) Component Value Ref Range Result <1+ Normal respiratory pascual present Gram Stain Result 1+ WBCs Gram Stain Result 0-5 epithelial cells Gram Stain Result No organisms seen Specimen Performing Laboratory Sputum - Endotracheal [facility] [address] [place] [address], [place] [id number] US renal complete (07/18/2017 1:45 PM) Specimen Performing Laboratory GE RIS Narrative FINAL REPORT Renal ultrasound dated 07/18/2017 Comment:Real-time transabdominal renal ultrasound was performed. Right kidney measures 10 6 x 5.0 x 4.8 cm.Left kidney measures 8.7 x 4.2 x 4.5 cm.Right renal cortex measures 1.1 cm.Left renal cortex measures 1.2 cm. Echogenicity of both renal parenchyma is normal. A 2.2 x 2.1 x 2.3 cm cyst is seen in the right kidney The urinary bladder is contracted. Doppler ultrasound demonstrates patent main renal artery and vein bilaterally. Impression: 1. Somewhat atrophic left kidney. 2. Right renal cyst. 3. No hydronephrosis. Signed: Virginia Diaz MD Report Verified Date/Time:07/18/2017 14:36:40 Reading Location: [address] Ultrasound Reading Room Procedure Note Interface, External Ris In - 07/18/2017 2:38 PM CDT FINAL REPORT Renal ultrasound dated 07/18/2017 Comment: Real-time transabdominal renal ultrasound was performed. Right kidney measures 10 6 x 5.0 x 4.8 cm. Left kidney measures 8.7 x 4.2 x 4.5 cm. Right renal cortex measures 1.1 cm. Left renal cortex measures 1.2 cm. Echogenicity of both renal parenchyma is normal. A 2.2 x 2.1 x 2.3 cm cyst is seen in the right kidney The urinary bladder is contracted. Doppler ultrasound demonstrates patent main renal artery and vein bilaterally. Impression: 1. Somewhat atrophic left kidney. 2. Right renal cyst. 3. No hydronephrosis. Signed: Virginia Diaz MD Report Verified Date/Time: 07/18/2017 14:36:40 Reading Location: [address] Ultrasound Reading Room Sodium, random urine (07/18/2017 1:08 PM) Component Value Ref Range Sodium Urine 22 meq/L Specimen Performing Laboratory Urine [address] [address] Narrative Reference Range: No Normals Protein, random urine (07/18/2017 1:08 PM) Component Value Ref Range Protein, Urine 75 (H) 0 - 14 mg/dL Specimen Performing Laboratory Urine [address] [address] Creatinine, random urine (07/18/2017 1:08 PM) Component Value Ref Range Creatinine, Ur 85.4 mg/dL Specimen Performing Laboratory Urine [address] [address] Narrative Reference Range: No Normals Urinalysis w/Microscopic (07/18/2017 1:08 PM) Component Value Ref Range Color, UA Yellow Clarity, UA Clear Specific [place], UA 1.050 (H) 1.001 - 1.035 pH, UA 5.5 5.0 - 8.0 Protein, UA 50 mg/dL (A) Negative Glucose, UA >1000 mg/dL (A) Negative Ketones, UA Negative Negative Bilirubin, UA Negative Negative Blood, UA Moderate (A) Negative Nitrite, UA Negative Negative Leukocytes, UA Negative Negative Urobilinogen, UA 0.2 0.2 - 1.0 mg/dL RBC, UA 16 /HPF WBC, UA 11 /HPF Bacteria, UA Rare Mucus Rare Squam Epithel, UA 1 /HPF Specimen Source Specimen Performing Laboratory Urine [address] [address] TSH/Free T4 If Indicated (07/18/2017 12:39 PM) Component Value Ref Range TSH 0.27 (L) 0.35 - 4.94 uIU/mL Specimen Performing Laboratory Blood [address] [address] T4, free (07/18/2017 12:39 PM) Component Value Ref Range Free T4 1.13 0.70 - 1.48 ng/dL Specimen Performing Laboratory Blood [address] [address] Lipase (07/18/2017 12:39 PM) Component Value Ref Range Lipase 106 (H) 8 - 78 U/L Specimen Performing Laboratory Blood [facility] [address] [address] Narrative If last glucose was less than 500, may do bedside glucose instead of serum glucose. Hemoglobin A1c (07/18/2017 12:39 PM) Component Value Ref Range Hemoglobin A1C 9.8 (H) 4.3 - 6.1 % Specimen Performing Laboratory Blood [address] [address] after 09/29/2016
--- OUTSIDE RECORDS SUMMARY | 2017-09-30 12:05 | XMS REPORT ---
:1945 [facility] [address] [place] [id number] Care Team Providers Name Role Phone BRITTNEY CLINTON Unavailable Unavailable DEDRA LUKE Unavailable Unavailable OZ WOODARD Unavailable Unavailable Problems This patient has no known problems. Allergies, Adverse Reactions, Alerts This patient has no known allergies or adverse reactions. Medications This patient has no known medications. Results Test Description Test Time Test Comments Text Results Atomic Results Result Comments B-TYPE NATRIURETIC FACTOR (BNP) 2017-08-18 15:08:00 Test Item Value Reference Range Comments B-TYPE NATRIURETIC PEPTIDE (BEAKER) (test gupv=115) 867 pg/mL 0-100 BASIC METABOLIC [id number] 15:05:00 Test Item Value Reference Range Comments SODIUM (BEAKER) (test 140 meq/L 136-145 lpjv=536) POTASSIUM (BEAKER) (test 4.6 meq/L 3.5-5.1 gewr=462) CHLORIDE (BEAKER) (test 98 meq/L 98-107 rtfe=751) CO2 (BEAKER) (test 32 meq/L 22-29 nspx=902) BLOOD UREA NITROGEN 30 mg/dL 7-21 (BEAKER) (test qiix=855) CREATININE (BEAKER) (test 2.58 mg/dL 0.57-1.25 wdkd=930) GLUCOSE RANDOM (BEAKER) 105 mg/dL 70-105 (test wylo=065) CALCIUM (BEAKER) (test 10.3 mg/dL 8.4-10.2 uhvr=915) EGFR (BEAKER) (test 22 mL/min/1.73 sq m ESTIMATED GFR IS NOT upux=6260) ACCURATE CREATININE CLEARANCE IN PREDICTING GLOMERULAR FILTRATION RATE. ESTIMATED GFR IS NOT APPLICABLE FOR DIALYSIS PATIENTS. [id number] 15:02:00 Test Item Value Reference Range Comments MAGNESIUM (BEAKER) (test ckdq=738) 2.0 mg/dL 1.6-2.6 POCT-GLUCOSE [id number] 12:40:00 Test Item Value Reference Range Comments POC-GLUCOSE METER (BEAKER) 225 mg/dL 70-110 TESTED AT [address] (test sscm=8517) [place] [id number] POCT-GLUCOSE [id number] 08:32:00 Test Item Value Reference Range Comments POC-GLUCOSE METER (BEAKER) 148 mg/dL 70-110 TESTED AT [address] (test mscb=7229) [place] [address] BASIC METABOLIC [id number] 05:56:00 Test Item Value Reference Range Comments SODIUM (BEAKER) (test 138 meq/L 136-145 acso=437) POTASSIUM (BEAKER) (test 4.0 meq/L 3.5-5.1 bgmz=992) CHLORIDE (BEAKER) (test 98 meq/L 98-107 jwie=986) CO2 (BEAKER) (test 29 meq/L 22-29 yifg=142) BLOOD UREA NITROGEN 14 mg/dL 7-21 (BEAKER) (test asps=476) CREATININE (BEAKER) (test 1.85 mg/dL 0.57-1.25 dkix=443) GLUCOSE RANDOM (BEAKER) 116 mg/dL 70-105 (test gxch=310) CALCIUM (BEAKER) (test 9.9 mg/dL 8.4-10.2 lfey=083) EGFR (BEAKER) (test 33 mL/min/1.73 sq m ESTIMATED GFR IS NOT efks=3589) ACCURATE CREATININE CLEARANCE IN PREDICTING GLOMERULAR FILTRATION RATE. ESTIMATED GFR IS NOT APPLICABLE FOR DIALYSIS PATIENTS. POCT-GLUCOSE [id number] 21:38:00 Test Item Value Reference Range Comments POC-GLUCOSE METER (BEAKER) 162 mg/dL 70-110 TESTED AT [address] (test tyoz=2326) [place] [id number] POCT-GLUCOSE [id number] 17:02:00 Test Item Value Reference Range Comments POC-GLUCOSE METER (BEAKER) 160 mg/dL 70-110 TESTED AT [address] (test ritu=4252) [place] [address] POCT-GLUCOSE [id number] 12:33:00 Test Item Value Reference Range Comments POC-GLUCOSE METER (BEAKER) 163 mg/dL 70-110 TESTED AT [address] (test ehvo=4905) [facility] [address] POCT-GLUCOSE [id number] 10:33:00 Test Item Value Reference Range Comments POC-GLUCOSE METER (BEAKER) 175 mg/dL 70-110 TESTED AT [address] (test obfv=0926) [place] [address] [id number] 04:51:00 Test Item Value Reference Range Comments MAGNESIUM (BEAKER) (test 2.0 mg/dL 1.6-2.6 Specimen slightly hemolyzed drlj=779) BASIC METABOLIC [id number] 04:51:00 Test Item Value Reference Range Comments SODIUM (BEAKER) (test 139 meq/L 136-145 bzqd=569) POTASSIUM (BEAKER) (test 3.8 meq/L 3.5-5.1 Specimen slightly xozv=563) hemolyzed CHLORIDE (BEAKER) (test 99 meq/L 98-107 tpqm=728) CO2 (BEAKER) (test 27 meq/L 22-29 ikbj=907) BLOOD UREA NITROGEN 14 mg/dL 7-21 (BEAKER) (test zwbs=260) CREATININE (BEAKER) (test 1.61 mg/dL 0.57-1.25 Specimen slightly svzf=942) hemolyzed GLUCOSE RANDOM (BEAKER) 139 mg/dL 70-105 (test svht=088) CALCIUM (BEAKER) (test 10.0 mg/dL 8.4-10.2 szgj=877) EGFR (BEAKER) (test 38 mL/min/1.73 sq m ESTIMATED GFR IS NOT hjcf=9837) ACCURATE CREATININE CLEARANCE IN PREDICTING GLOMERULAR FILTRATION RATE. ESTIMATED GFR IS NOT APPLICABLE FOR DIALYSIS PATIENTS. POCT-GLUCOSE [id number] 21:32:00 Test Item Value Reference Range Comments POC-GLUCOSE METER (BEAKER) 176 mg/dL 70-110 TESTED AT [address] (test qkov=8802) [facility] [address] POCT-GLUCOSE [id number] 17:22:00 Test Item Value Reference Range Comments POC-GLUCOSE METER (BEAKER) 232 mg/dL 70-110 TESTED AT [address] (test gqqg=4659) [place] [id number] POCT-GLUCOSE [id number] 12:47:00 Test Item Value Reference Range Comments POC-GLUCOSE METER (BEAKER) 162 mg/dL 70-110 TESTED AT [address] (test ubhd=7571) [place] [address] POCT-GLUCOSE [id number] 08:15:00 Test Item Value Reference Range Comments POC-GLUCOSE METER (BEAKER) 149 mg/dL 70-110 TESTED AT [address] (test jygg=5435) [place] [address] [id number] 07:05:00 Test Item Value Reference Range Comments MAGNESIUM (BEAKER) (test sifa=768) 1.9 mg/dL 1.6-2.6 BASIC METABOLIC [id number] 07:05:00 Test Item Value Reference Range Comments SODIUM (BEAKER) (test 136 meq/L 136-145 gyke=169) POTASSIUM (BEAKER) (test 3.8 meq/L 3.5-5.1 hfic=532) CHLORIDE (BEAKER) (test 98 meq/L 98-107 dlbn=688) CO2 (BEAKER) (test 30 meq/L 22-29 otpm=760) BLOOD UREA NITROGEN 14 mg/dL 7-21 (BEAKER) (test xkjj=014) CREATININE (BEAKER) (test 1.56 mg/dL 0.57-1.25 dnqx=609) GLUCOSE RANDOM (BEAKER) 129 mg/dL 70-105 (test zuqd=032) CALCIUM (BEAKER) (test 9.8 mg/dL 8.4-10.2 iyaf=233) EGFR (BEAKER) (test 40 mL/min/1.73 sq m ESTIMATED GFR IS NOT vcsx=6857) ACCURATE CREATININE CLEARANCE IN PREDICTING GLOMERULAR FILTRATION RATE. ESTIMATED GFR IS NOT APPLICABLE FOR DIALYSIS PATIENTS. POCT-GLUCOSE [id number] 20:56:00 Test Item Value Reference Range Comments POC-GLUCOSE METER (BEAKER) 112 mg/dL 70-110 TESTED AT [address] (test tbxu=1187) [place] [id number] POCT-GLUCOSE [id number] 17:48:00 Test Item Value Reference Range Comments POC-GLUCOSE METER (BEAKER) 213 mg/dL 70-110 TESTED AT [address] (test utkw=6713) [place] [address] POCT-GLUCOSE [id number] 11:40:00 Test Item Value Reference Range Comments POC-GLUCOSE METER (BEAKER) 208 mg/dL 70-110 TESTED AT [address] (test extf=2126) [place] [address] POCT-GLUCOSE [id number] 07:43:00 Test Item Value Reference Range Comments POC-GLUCOSE METER (BEAKER) 144 mg/dL 70-110 TESTED AT [address] (test gygk=4357) [place] [address] [id number] 04:52:00 Test Item Value Reference Range Comments MAGNESIUM (BEAKER) (test 2.0 mg/dL 1.6-2.6 Specimen slightly hemolyzed lbfp=677) BASIC METABOLIC [id number] 04:52:00 Test Item Value Reference Range Comments SODIUM (BEAKER) (test 133 meq/L 136-145 tuhb=924) POTASSIUM (BEAKER) (test 4.7 meq/L 3.5-5.1 Specimen slightly aerp=660) hemolyzed CHLORIDE (BEAKER) (test 97 meq/L 98-107 gonr=534) CO2 (BEAKER) (test 25 meq/L 22-29 ldox=484) BLOOD UREA NITROGEN 17 mg/dL 7-21 (BEAKER) (test dhwu=011) CREATININE (BEAKER) (test 1.63 mg/dL 0.57-1.25 Specimen slightly xkau=790) hemolyzed GLUCOSE RANDOM (BEAKER) 141 mg/dL 70-105 (test cvss=112) CALCIUM (BEAKER) (test 9.8 mg/dL 8.4-10.2 eifi=947) EGFR (BEAKER) (test 38 mL/min/1.73 sq m ESTIMATED GFR IS NOT mkrt=3365) ACCURATE CREATININE CLEARANCE IN PREDICTING GLOMERULAR FILTRATION RATE. ESTIMATED GFR IS NOT APPLICABLE FOR DIALYSIS PATIENTS. POCT-GLUCOSE [id number] 21:29:00 Test Item Value Reference Range Comments POC-GLUCOSE METER (BEAKER) 198 mg/dL 70-110 TESTED AT [address] (test dgor=3054) [facility] [address] POCT-GLUCOSE [id number] 17:54:00 Test Item Value Reference Range Comments POC-GLUCOSE METER (BEAKER) 176 mg/dL 70-110 [address] (test kibm=8973) [facility] [address] POCT-GLUCOSE [id number] 07:05:00 Test Item Value Reference Range Comments POC-GLUCOSE METER (BEAKER) 137 mg/dL 70-110 TESTED AT [facility] [address] [facility] (test yhms=2620) [facility] [address] [id number] 06:53:00 Test Item Value Reference Range Comments MAGNESIUM (BEAKER) (test whze=295) 2.0 mg/dL 1.6-2.6 BASIC METABOLIC [id number] 05:37:00 Test Item Value Reference Range Comments SODIUM (BEAKER) (test 136 meq/L 136-145 fvyr=254) POTASSIUM (BEAKER) (test 3.7 meq/L 3.5-5.1 dozc=698) CHLORIDE (BEAKER) (test 97 meq/L 98-107 cjhf=686) CO2 (BEAKER) (test 30 meq/L 22-29 aiar=055) BLOOD UREA NITROGEN 17 mg/dL 7-21 (BEAKER) (test hpvv=541) CREATININE (BEAKER) (test 1.60 mg/dL 0.57-1.25 yprg=611) GLUCOSE RANDOM (BEAKER) 116 mg/dL 70-105 (test pila=725) CALCIUM (BEAKER) (test 9.4 mg/dL 8.4-10.2 fzxw=932) EGFR (BEAKER) (test 39 mL/min/1.73 sq m ESTIMATED GFR IS NOT qdju=0207) ACCURATE CREATININE CLEARANCE IN PREDICTING GLOMERULAR FILTRATION RATE. ESTIMATED GFR IS NOT APPLICABLE FOR DIALYSIS PATIENTS. CBC W/PLT COUNT & AUTO [id number] 05:02:00 Test Item Value Reference Range Comments WHITE BLOOD CELL COUNT (BEAKER) (test jmos=726) 8.7 K/ L 3.5-10.5 RED BLOOD CELL COUNT (BEAKER) (test zahx=936) 2.43 M/ L 3.93-5.22 HEMOGLOBIN (BEAKER) (test qbkt=614) 7.5 GM/DL 11.2-15.7 HEMATOCRIT (BEAKER) (test iyxg=598) 24.1 % 34.1-44.9 MEAN CORPUSCULAR VOLUME (BEAKER) (test jbnd=462) 99.2 fL 79.4-94.8 MEAN CORPUSCULAR HEMOGLOBIN (BEAKER) (test 30.9 pg 25.6-32.2 fhbv=742) MEAN CORPUSCULAR HEMOGLOBIN CONC (BEAKER) (test 31.1 GM/DL 32.2-35.5 cvht=451) RED CELL DISTRIBUTION WIDTH (BEAKER) (test 15.8 % 11.7-14.4 poug=959) PLATELET COUNT (BEAKER) (test chmu=537) 586 K/CU MM 150-450 MEAN PLATELET VOLUME (BEAKER) (test jybx=265) 9.5 fL 9.4-12.3 NUCLEATED RED BLOOD CELLS (BEAKER) (test 0 /100 WBC 0-0 fvfz=813) NEUTROPHILS RELATIVE PERCENT (BEAKER) (test 74 % nmub=480) LYMPHOCYTES RELATIVE PERCENT (BEAKER) (test 15 % lija=290) MONOCYTES RELATIVE PERCENT (BEAKER) (test 8 % ehym=994) EOSINOPHILS RELATIVE PERCENT (BEAKER) (test 2 % geuq=916) BASOPHILS RELATIVE PERCENT (BEAKER) (test 1 % fefp=554) NEUTROPHILS ABSOLUTE COUNT (BEAKER) (test 6.41 K/ L 1.56-6.13 ipon=062) LYMPHOCYTES ABSOLUTE COUNT (BEAKER) (test 1.32 K/ L 1.18-3.74 faya=789) MONOCYTES ABSOLUTE COUNT (BEAKER) (test 0.65 K/ L 0.24-0.36 xrcc=170) EOSINOPHILS ABSOLUTE COUNT (BEAKER) (test 0.20 K/ L 0.04-0.36 yegw=235) BASOPHILS ABSOLUTE COUNT (BEAKER) (test 0.08 K/ L 0.01-0.08 pjca=191) IMMATURE GRANULOCYTES-RELATIVE PERCENT (BEAKER) 0 % 0-1 (test clwd=6860) POCT-GLUCOSE [id number] 21:28:00 Test Item Value Reference Range Comments POC-GLUCOSE METER (BEAKER) 216 mg/dL 70-110 TESTED AT [address] (test dklk=4872) [facility] [address] POCT-GLUCOSE [id number] 18:25:00 Test Item Value Reference Range Comments POC-GLUCOSE METER (BEAKER) 182 mg/dL 70-110 TESTED AT [address] (test enol=0298) [facility] [address] POCT-GLUCOSE [id number] 09:37:00 Test Item Value Reference Range Comments POC-GLUCOSE METER (BEAKER) 155 mg/dL 70-110 TESTED AT [facility] [address] (test mimt=2236) [facility] [address] CALCIUM, [id number] 07:37:00 Test Item Value Reference Range Comments CALCIUM IONIZED (BEAKER) (test jkly=604) 1.11 mmol/L 1.12-1.27 PH, BLOOD (BEAKER) (test xkpg=5194) 7.39 [id number] 07:10:00 Test Item Value Reference Range Comments FERRITIN (BEAKER) (test nuzl=690) 445 ng/mL 5-275 IRON, TIBC, % SAT. (WITHOUT FERRITIN)2017-08-04 07:04:00 Test Item Value Reference Range Comments IRON (BEAKER) (test yoxs=269) 55 ug/dL 40-160 TOTAL IRON BINDING CAPACITY (BEAKER) (test 198 ug/dL 250-450 fnyt=647) IRON % SATURATION (2) (BEAKER) (test tsii=3777) 28 % 20-55 [id number] 06:57:00 Test Item Value Reference Range Comments PHOSPHORUS (BEAKER) (test hcyy=197) 4.3 mg/dL 2.3-4.7 [id number] 06:57:00 Test Item Value Reference Range Comments MAGNESIUM (BEAKER) (test ddeh=901) 2.1 mg/dL 1.6-2.6 BASIC METABOLIC [id number] 06:57:00 Test Item Value Reference Range Comments SODIUM (BEAKER) (test 138 meq/L 136-145 lqqp=157) POTASSIUM (BEAKER) (test 3.8 meq/L 3.5-5.1 ftww=209) CHLORIDE (BEAKER) (test 99 meq/L 98-107 rvza=556) CO2 (BEAKER) (test 29 meq/L 22-29 figt=111) BLOOD UREA NITROGEN 18 mg/dL 7-21 (BEAKER) (test iutl=266) CREATININE (BEAKER) (test 1.75 mg/dL 0.57-1.25 hfoe=511) GLUCOSE RANDOM (BEAKER) 138 mg/dL 70-105 (test iwxj=929) CALCIUM (BEAKER) (test 9.7 mg/dL 8.4-10.2 fipm=519) EGFR (BEAKER) (test 35 mL/min/1.73 sq m ESTIMATED GFR IS NOT bfjl=5571) ACCURATE CREATININE CLEARANCE IN PREDICTING GLOMERULAR FILTRATION RATE. ESTIMATED GFR IS NOT APPLICABLE FOR DIALYSIS PATIENTS. B-TYPE NATRIURETIC FACTOR (BNP)2017-08-04 06:54:00 Test Item Value Reference Range Comments B-TYPE NATRIURETIC PEPTIDE (BEAKER) (test 778 pg/mL 0-100 lmpt=383) RETICULOCYTE [id number] 06:39:00 Test Item Value Reference Range Comments RETICULOCYTE COUNT PCT (BEAKER) (test tpvd=191) 8.3 % 0.5-1.7 CBC W/PLT COUNT & AUTO [id number] 06:39:00 Test Item Value Reference Range Comments WHITE BLOOD CELL COUNT (BEAKER) (test lncb=192) 9.0 K/ L 3.5-10.5 RED BLOOD CELL COUNT (BEAKER) (test krad=746) 2.55 M/ L 3.93-5.22 HEMOGLOBIN (BEAKER) (test kvjt=836) 7.8 GM/DL 11.2-15.7 HEMATOCRIT (BEAKER) (test eesb=541) 25.4 % 34.1-44.9 MEAN CORPUSCULAR VOLUME (BEAKER) (test gnde=397) 99.6 fL 79.4-94.8 MEAN CORPUSCULAR HEMOGLOBIN (BEAKER) (test 30.6 pg 25.6-32.2 fiag=107) MEAN CORPUSCULAR HEMOGLOBIN CONC (BEAKER) (test 30.7 GM/DL 32.2-35.5 lwup=860) RED CELL DISTRIBUTION WIDTH (BEAKER) (test 15.9 % 11.7-14.4 zedz=820) PLATELET COUNT (BEAKER) (test pafz=272) 591 K/CU MM 150-450 MEAN PLATELET VOLUME (BEAKER) (test amnd=121) 9.5 fL 9.4-12.3 NUCLEATED RED BLOOD CELLS (BEAKER) (test 0 /100 WBC 0-0 puwt=497) NEUTROPHILS RELATIVE PERCENT (BEAKER) (test 77 % xmhw=525) LYMPHOCYTES RELATIVE PERCENT (BEAKER) (test 13 % wycm=503) MONOCYTES RELATIVE PERCENT (BEAKER) (test 7 % ubma=158) EOSINOPHILS RELATIVE PERCENT (BEAKER) (test 2 % vnea=445) BASOPHILS RELATIVE PERCENT (BEAKER) (test 1 % mhdk=143) NEUTROPHILS ABSOLUTE COUNT (BEAKER) (test 6.97 K/ L 1.56-6.13 iyvf=698) LYMPHOCYTES ABSOLUTE COUNT (BEAKER) (test 1.13 K/ L 1.18-3.74 ycua=496) MONOCYTES ABSOLUTE COUNT (BEAKER) (test 0.65 K/ L 0.24-0.36 babn=401) EOSINOPHILS ABSOLUTE COUNT (BEAKER) (test 0.18 K/ L 0.04-0.36 ngxd=600) BASOPHILS ABSOLUTE COUNT (BEAKER) (test 0.07 K/ L 0.01-0.08 oyvp=531) IMMATURE GRANULOCYTES-RELATIVE PERCENT (BEAKER) 0 % 0-1 (test wrdp=1297) POCT-GLUCOSE [id number] 20:56:00 Test Item Value Reference Range Comments POC-GLUCOSE METER (BEAKER) 167 mg/dL 70-110 TESTED AT [address] (test npja=8436) [place] [address] POCT-GLUCOSE [id number] 16:36:00 Test Item Value Reference Range Comments POC-GLUCOSE METER (BEAKER) 200 mg/dL 70-110 TESTED AT [address] (test ajuj=0213) [place] [address] POCT-GLUCOSE [id number] 12:59:00 Test Item Value Reference Range Comments POC-GLUCOSE METER (BEAKER) 202 mg/dL 70-110 TESTED AT [address] (test jvze=1214) [place] [address] POCT-GLUCOSE [id number] 07:37:00 Test Item Value Reference Range Comments POC-GLUCOSE METER (BEAKER) 154 mg/dL 70-110 TESTED AT [address] (test eysf=0818) [place] [address] CBC W/PLT COUNT & AUTO [id number] 06:49:00 Test Item Value Reference Range Comments WHITE BLOOD CELL COUNT (BEAKER) (test mcgq=928) 9.8 K/ L 3.5-10.5 RED BLOOD CELL COUNT (BEAKER) (test yctr=998) 2.62 M/ L 3.93-5.22 HEMOGLOBIN (BEAKER) (test ytoi=489) 8.1 GM/DL 11.2-15.7 HEMATOCRIT (BEAKER) (test kggp=390) 25.9 % 34.1-44.9 MEAN CORPUSCULAR VOLUME (BEAKER) (test rtwb=751) 98.9 fL 79.4-94.8 MEAN CORPUSCULAR HEMOGLOBIN (BEAKER) (test 30.9 pg 25.6-32.2 dbin=611) MEAN CORPUSCULAR HEMOGLOBIN CONC (BEAKER) (test 31.3 GM/DL 32.2-35.5 tkgm=970) RED CELL DISTRIBUTION WIDTH (BEAKER) (test 15.8 % 11.7-14.4 trdo=822) PLATELET COUNT (BEAKER) (test kirw=455) 667 K/CU MM 150-450 MEAN PLATELET VOLUME (BEAKER) (test bmxp=516) 9.4 fL 9.4-12.3 NUCLEATED RED BLOOD CELLS (BEAKER) (test 0 /100 WBC 0-0 blgg=134) NEUTROPHILS RELATIVE PERCENT (BEAKER) (test 77 % eyih=808) LYMPHOCYTES RELATIVE PERCENT (BEAKER) (test 13 % rshf=573) MONOCYTES RELATIVE PERCENT (BEAKER) (test 7 % wefw=963) EOSINOPHILS RELATIVE PERCENT (BEAKER) (test 2 % vjak=019) BASOPHILS RELATIVE PERCENT (BEAKER) (test 1 % vfqm=087) NEUTROPHILS ABSOLUTE COUNT (BEAKER) (test 7.57 K/ L 1.56-6.13 ygzo=096) LYMPHOCYTES ABSOLUTE COUNT (BEAKER) (test 1.23 K/ L 1.18-3.74 qacv=276) MONOCYTES ABSOLUTE COUNT (BEAKER) (test 0.69 K/ L 0.24-0.36 gvwf=307) EOSINOPHILS ABSOLUTE COUNT (BEAKER) (test 0.16 K/ L 0.04-0.36 muih=000) BASOPHILS ABSOLUTE COUNT (BEAKER) (test 0.08 K/ L 0.01-0.08 llnw=056) IMMATURE GRANULOCYTES-RELATIVE PERCENT (BEAKER) 1 % 0-1 (test pzxr=4094) CALCIUM, [id number] 06:38:00 Test Item Value Reference Range Comments CALCIUM IONIZED (BEAKER) (test edha=926) 1.07 mmol/L 1.12-1.27 PH, BLOOD (BEAKER) (test vtgm=7712) 7.42 [id number] 06:08:00 Test Item Value Reference Range Comments PHOSPHORUS (BEAKER) (test iahn=669) 4.3 mg/dL 2.3-4.7 [id number] 06:08:00 Test Item Value Reference Range Comments MAGNESIUM (BEAKER) (test kkci=981) 2.4 mg/dL 1.6-2.6 BASIC METABOLIC [id number] 06:08:00 Test Item Value Reference Range Comments SODIUM (BEAKER) (test 138 meq/L 136-145 ovvw=860) POTASSIUM (BEAKER) (test 4.0 meq/L 3.5-5.1 flwk=032) CHLORIDE (BEAKER) (test 99 meq/L 98-107 szjt=701) CO2 (BEAKER) (test 29 meq/L 22-29 lpqu=989) BLOOD UREA NITROGEN 15 mg/dL 7-21 (BEAKER) (test tvwo=310) CREATININE (BEAKER) (test 1.64 mg/dL 0.57-1.25 kibg=629) GLUCOSE RANDOM (BEAKER) 135 mg/dL 70-105 (test rgdt=987) CALCIUM (BEAKER) (test 9.5 mg/dL 8.4-10.2 nwpg=779) EGFR (BEAKER) (test 38 mL/min/1.73 sq m ESTIMATED GFR IS NOT vivn=9394) ACCURATE CREATININE CLEARANCE IN PREDICTING GLOMERULAR FILTRATION RATE. ESTIMATED GFR IS NOT APPLICABLE FOR DIALYSIS PATIENTS. POCT-GLUCOSE [id number] 21:13:00 Test Item Value Reference Range Comments POC-GLUCOSE METER (BEAKER) 145 mg/dL 70-110 TESTED AT [address] (test prws=9230) [facility] [address] POCT-GLUCOSE [id number] 17:08:00 Test Item Value Reference Range Comments POC-GLUCOSE METER (BEAKER) 134 mg/dL 70-110 TESTED AT [address] (test glzl=7015) [facility] [address] POCT-GLUCOSE [id number] 11:44:00 Test Item Value Reference Range Comments POC-GLUCOSE METER (BEAKER) 159 mg/dL 70-110 TESTED AT [address] (test nxrv=7030) [facility] [address] POCT-GLUCOSE [id number] 08:07:00 Test Item Value Reference Range Comments POC-GLUCOSE METER (BEAKER) 152 mg/dL 70-110 TESTED AT [facility] [address] [facility] (test szme=4069) [facility] [address] CALCIUM, [id number] 05:26:00 Test Item Value Reference Range Comments CALCIUM IONIZED (BEAKER) (test kfpp=667) 1.10 mmol/L 1.12-1.27 PH, BLOOD (BEAKER) (test vfbq=5868) 7.42 [id number] 05:05:00 Test Item Value Reference Range Comments PHOSPHORUS (BEAKER) (test zfuy=054) 4.6 mg/dL 2.3-4.7 [id number] 05:05:00 Test Item Value Reference Range Comments MAGNESIUM (BEAKER) (test xexf=256) 1.6 mg/dL 1.6-2.6 COMPREHENSIVE METABOLIC [id number] 05:05:00 Test Item Value Reference Range Comments TOTAL PROTEIN (BEAKER) 6.9 gm/dL 6.0-8.3 (test xakp=575) ALBUMIN (BEAKER) (test 3.2 g/dL 3.5-5.0 iooe=9943) ALKALINE PHOSPHATASE 55 U/L 40-150 (BEAKER) (test bjgn=050) BILIRUBIN TOTAL (BEAKER) 0.6 mg/dL 0.2-1.2 (test ennr=075) SODIUM (BEAKER) (test 139 meq/L 136-145 gumb=928) POTASSIUM (BEAKER) (test 3.9 meq/L 3.5-5.1 fvqp=386) CHLORIDE (BEAKER) (test 100 meq/L 98-107 quhw=317) CO2 (BEAKER) (test 27 meq/L 22-29 lbfi=373) BLOOD UREA NITROGEN 15 mg/dL 7-21 (BEAKER) (test snjr=439) CREATININE (BEAKER) (test 1.55 mg/dL 0.57-1.25 mpta=145) GLUCOSE RANDOM (BEAKER) 125 mg/dL 70-105 (test eqco=204) CALCIUM (BEAKER) (test 9.2 mg/dL 8.4-10.2 fzqa=510) AST (SGOT) (BEAKER) (test 16 U/L 5-34 ytum=985) ALT (SGPT) (BEAKER) (test 11 U/L 6-55 elxt=711) EGFR (BEAKER) (test 40 mL/min/1.73 sq m ESTIMATED GFR IS NOT obdy=2655) ACCURATE CREATININE CLEARANCE IN PREDICTING GLOMERULAR FILTRATION RATE. ESTIMATED GFR IS NOT APPLICABLE FOR DIALYSIS PATIENTS. CBC W/PLT COUNT & AUTO [id number] 04:57:00 Test Item Value Reference Range Comments WHITE BLOOD CELL COUNT (BEAKER) (test qpmy=405) 10.8 K/ L 3.5-10.5 RED BLOOD CELL COUNT (BEAKER) (test lpss=182) 2.57 M/ L 3.93-5.22 HEMOGLOBIN (BEAKER) (test jbuk=628) 7.9 GM/DL 11.2-15.7 HEMATOCRIT (BEAKER) (test qxvm=902) 25.2 % 34.1-44.9 MEAN CORPUSCULAR VOLUME (BEAKER) (test zskz=661) 98.1 fL 79.4-94.8 MEAN CORPUSCULAR HEMOGLOBIN (BEAKER) (test 30.7 pg 25.6-32.2 lynl=586) MEAN CORPUSCULAR HEMOGLOBIN CONC (BEAKER) (test 31.3 GM/DL 32.2-35.5 jjwx=742) RED CELL DISTRIBUTION WIDTH (BEAKER) (test 15.9 % 11.7-14.4 bjpq=914) PLATELET COUNT (BEAKER) (test iuco=349) 623 K/CU MM 150-450 MEAN PLATELET VOLUME (BEAKER) (test rivb=890) 9.4 fL 9.4-12.3 NUCLEATED RED BLOOD CELLS (BEAKER) (test 0 /100 WBC 0-0 yfwk=440) NEUTROPHILS RELATIVE PERCENT (BEAKER) (test 79 % xrjm=157) LYMPHOCYTES RELATIVE PERCENT (BEAKER) (test 12 % hdey=067) MONOCYTES RELATIVE PERCENT (BEAKER) (test 7 % lwbw=432) EOSINOPHILS RELATIVE PERCENT (BEAKER) (test 2 % egcz=954) BASOPHILS RELATIVE PERCENT (BEAKER) (test 1 % kygt=749) NEUTROPHILS ABSOLUTE COUNT (BEAKER) (test 8.49 K/ L 1.56-6.13 ehdy=761) LYMPHOCYTES ABSOLUTE COUNT (BEAKER) (test 1.28 K/ L 1.18-3.74 jgld=805) MONOCYTES ABSOLUTE COUNT (BEAKER) (test 0.74 K/ L 0.24-0.36 emkj=825) EOSINOPHILS ABSOLUTE COUNT (BEAKER) (test 0.18 K/ L 0.04-0.36 utkx=139) BASOPHILS ABSOLUTE COUNT (BEAKER) (test 0.05 K/ L 0.01-0.08 xdkk=093) IMMATURE GRANULOCYTES-RELATIVE PERCENT (BEAKER) 1 % 0-1 (test pjvg=4826) POCT-GLUCOSE [id number] 01:29:00 Test Item Value Reference Range Comments POC-GLUCOSE METER (BEAKER) 182 mg/dL 70-110 TESTED AT [address] (test hila=0681) [place] [id number] POCT-GLUCOSE [id number] 22:32:00 Test Item Value Reference Range Comments POC-GLUCOSE METER (BEAKER) 204 mg/dL 70-110 TESTED AT [address] (test aoqz=6551) [place] [id number] POCT-GLUCOSE [id number] 18:53:00 Test Item Value Reference Range Comments POC-GLUCOSE METER (BEAKER) 154 mg/dL 70-110 TESTED AT [address] (test rowl=9329) [place] [id number] POCT-GLUCOSE [id number] 15:50:00 Test Item Value Reference Range Comments POC-GLUCOSE METER (BEAKER) 172 mg/dL 70-110 TESTED AT [address] (test skrp=2639) [place] [address] B-TYPE NATRIURETIC FACTOR (BNP)2017-08-01 15:41:00 Test Item Value Reference Range Comments B-TYPE NATRIURETIC PEPTIDE (BEAKER) (test 1253 pg/mL 0-100 zpoe=611) RAD, CHEST, 1 VIEW, NON [id number] 15:00:00Reason for exam:->SOBShould this be performed at the bedside?->YesFINAL REPORT Chest one view compared to July 28, 2017 Discussion: There is cardiac prominence. Lungs are grossly clear. No effusion or pneumothorax. There is either hiatal hernia or aortic tortuosity. IMPRESSIONS: No significant change. Signed: Nisbet, Tony MDReport Verified Date/Time: 08/01/2017 15:00:05 Reading Location: [facility] [id number] Consult Reading Room Electronicallysigned by: TONY HSU M.D. on 08/01/2017 03:00 PMPOCT-GLUCOSE [id number] 09:28:00 Test Item Value Reference Range Comments POC-GLUCOSE METER (BEAKER) 155 mg/dL 70-110 TESTED AT [facility] [address] [facility] (test frei=9331) [facility] [address] BASIC METABOLIC [id number] 08:00:00 Test Item Value Reference Range Comments SODIUM (BEAKER) (test 138 meq/L 136-145 anvj=302) POTASSIUM (BEAKER) (test 3.8 meq/L 3.5-5.1 yzws=665) CHLORIDE (BEAKER) (test 100 meq/L 98-107 rqik=361) CO2 (BEAKER) (test 27 meq/L 22-29 azvd=245) BLOOD UREA NITROGEN 14 mg/dL 7-21 (BEAKER) (test oimx=533) CREATININE (BEAKER) (test 1.47 mg/dL 0.57-1.25 bwnj=785) GLUCOSE RANDOM (BEAKER) 150 mg/dL 70-105 (test ylwb=367) CALCIUM (BEAKER) (test 9.0 mg/dL 8.4-10.2 kykt=444) EGFR (BEAKER) (test 43 mL/min/1.73 sq m ESTIMATED GFR IS NOT rpms=2620) ACCURATE CREATININE CLEARANCE IN PREDICTING GLOMERULAR FILTRATION RATE. ESTIMATED GFR IS NOT APPLICABLE FOR DIALYSIS PATIENTS. CBC W/PLT COUNT & AUTO [id number] 07:54:00 Test Item Value Reference Range Comments WHITE BLOOD CELL COUNT (BEAKER) (test huqi=010) 12.4 K/ L 3.5-10.5 RED BLOOD CELL COUNT (BEAKER) (test dqbe=535) 2.57 M/ L 3.93-5.22 HEMOGLOBIN (BEAKER) (test cgcn=929) 7.7 GM/DL 11.2-15.7 HEMATOCRIT (BEAKER) (test fcil=074) 25.0 % 34.1-44.9 MEAN CORPUSCULAR VOLUME (BEAKER) (test uaor=403) 97.3 fL 79.4-94.8 MEAN CORPUSCULAR HEMOGLOBIN (BEAKER) (test 30.0 pg 25.6-32.2 qtun=330) MEAN CORPUSCULAR HEMOGLOBIN CONC (BEAKER) (test 30.8 GM/DL 32.2-35.5 lisd=530) RED CELL DISTRIBUTION WIDTH (BEAKER) (test 15.8 % 11.7-14.4 vhtj=558) PLATELET COUNT (BEAKER) (test sswq=147) 582 K/CU MM 150-450 MEAN PLATELET VOLUME (BEAKER) (test abvt=880) 9.5 fL 9.4-12.3 NUCLEATED RED BLOOD CELLS (BEAKER) (test 0 /100 WBC 0-0 ssns=713) NEUTROPHILS RELATIVE PERCENT (BEAKER) (test 82 % bose=603) LYMPHOCYTES RELATIVE PERCENT (BEAKER) (test 10 % cilt=864) MONOCYTES RELATIVE PERCENT (BEAKER) (test 6 % onjl=172) EOSINOPHILS RELATIVE PERCENT (BEAKER) (test 1 % lfgn=172) BASOPHILS RELATIVE PERCENT (BEAKER) (test 1 % fgxk=981) NEUTROPHILS ABSOLUTE COUNT (BEAKER) (test 10.08 K/ L 1.56-6.13 kblp=778) LYMPHOCYTES ABSOLUTE COUNT (BEAKER) (test 1.19 K/ L 1.18-3.74 ntbo=275) MONOCYTES ABSOLUTE COUNT (BEAKER) (test 0.74 K/ L 0.24-0.36 pyuz=354) EOSINOPHILS ABSOLUTE COUNT (BEAKER) (test 0.16 K/ L 0.04-0.36 lxsr=094) BASOPHILS ABSOLUTE COUNT (BEAKER) (test 0.10 K/ L 0.01-0.08 ydmi=532) IMMATURE GRANULOCYTES-RELATIVE PERCENT (BEAKER) 1 % 0-1 (test mezw=5850) POCT-GLUCOSE [id number] 21:34:00 Test Item Value Reference Range Comments POC-GLUCOSE METER (BEAKER) 153 mg/dL 70-110 TESTED AT [address] (test wjof=3215) [facility] [address] POCT-GLUCOSE [id number] 17:34:00 Test Item Value Reference Range Comments POC-GLUCOSE METER (BEAKER) 165 mg/dL 70-110 TESTED AT [address] (test wdja=1191) [facility] [address] POCT-GLUCOSE [id number] 14:33:00 Test Item Value Reference Range Comments POC-GLUCOSE METER (BEAKER) 208 mg/dL 70-110 TESTED AT [address] (test bzol=2983) [place] [id number] POCT-GLUCOSE [id number] 12:54:00 Test Item Value Reference Range Comments POC-GLUCOSE METER (BEAKER) 218 mg/dL 70-110 TESTED AT [address] (test oakp=6978) [place] [address] POCT-GLUCOSE [id number] 10:34:00 Test Item Value Reference Range Comments POC-GLUCOSE METER (BEAKER) 204 mg/dL 70-110 TESTED AT [address] (test mmyy=6927) [place] [address] POCT-GLUCOSE [id number] 08:41:00 Test Item Value Reference Range Comments POC-GLUCOSE METER (BEAKER) 201 mg/dL 70-110 TESTED AT [address] (test dvrl=4270) [place] [address] [id number] 05:54:00 Test Item Value Reference Range Comments MAGNESIUM (BEAKER) (test atqw=734) 1.8 mg/dL 1.6-2.6 BASIC METABOLIC [id number] 05:54:00 Test Item Value Reference Range Comments SODIUM (BEAKER) (test 138 meq/L 136-145 sahc=659) POTASSIUM (BEAKER) (test 3.6 meq/L 3.5-5.1 oonw=209) CHLORIDE (BEAKER) (test 100 meq/L 98-107 nuna=129) CO2 (BEAKER) (test 25 meq/L 22-29 drho=551) BLOOD UREA NITROGEN 14 mg/dL 7-21 (BEAKER) (test ocrn=780) CREATININE (BEAKER) (test 1.42 mg/dL 0.57-1.25 dduv=251) GLUCOSE RANDOM (BEAKER) 145 mg/dL 70-105 (test ykff=234) CALCIUM (BEAKER) (test 9.4 mg/dL 8.4-10.2 ktgm=228) EGFR (BEAKER) (test 44 mL/min/1.73 sq m ESTIMATED GFR IS NOT vwny=5243) ACCURATE CREATININE CLEARANCE IN PREDICTING GLOMERULAR FILTRATION RATE. ESTIMATED GFR IS NOT APPLICABLE FOR DIALYSIS PATIENTS. CBC (HEMOGRAM ONLY)2017-07-31 05:42:00 Test Item Value Reference Range Comments WHITE BLOOD CELL COUNT (BEAKER) (test saoa=229) 13.3 K/ L 3.5-10.5 RED BLOOD CELL COUNT (BEAKER) (test yipv=105) 2.65 M/ L 3.93-5.22 HEMOGLOBIN (BEAKER) (test wlec=326) 7.9 GM/DL 11.2-15.7 HEMATOCRIT (BEAKER) (test halo=115) 25.9 % 34.1-44.9 MEAN CORPUSCULAR VOLUME (BEAKER) (test xgrm=681) 97.7 fL 79.4-94.8 MEAN CORPUSCULAR HEMOGLOBIN (BEAKER) (test 29.8 pg 25.6-32.2 asxd=523) MEAN CORPUSCULAR HEMOGLOBIN CONC (BEAKER) (test 30.5 GM/DL 32.2-35.5 jwxp=483) RED CELL DISTRIBUTION WIDTH (BEAKER) (test 15.3 % 11.7-14.4 nooy=867) PLATELET COUNT (BEAKER) (test jppf=956) 580 K/CU MM 150-450 MEAN PLATELET VOLUME (BEAKER) (test sqfn=404) 9.7 fL 9.4-12.3 NUCLEATED RED BLOOD CELLS (BEAKER) (test 0 /100 WBC 0-0 vmxb=800) POCT-GLUCOSE [id number] 21:21:00 Test Item Value Reference Range Comments POC-GLUCOSE METER (BEAKER) 206 mg/dL 70-110 TESTED AT [address] (test ehri=2110) [facility] [address] POCT-GLUCOSE [id number] 17:50:00 Test Item Value Reference Range Comments POC-GLUCOSE METER (BEAKER) 160 mg/dL 70-110 TESTED AT [address] (test sjja=3462) [facility] [address] POCT-GLUCOSE [id number] 12:12:00 Test Item Value Reference Range Comments POC-GLUCOSE METER (BEAKER) 214 mg/dL 70-110 TESTED AT [address] (test dmos=7609) [facility] [address] POCT-GLUCOSE [id number] 07:59:00 Test Item Value Reference Range Comments POC-GLUCOSE METER (BEAKER) 146 mg/dL 70-110 TESTED AT [facility] [address] (test ncgg=4567) [place] [address] CALCIUM, [id number] 07:23:00 Test Item Value Reference Range Comments CALCIUM IONIZED (BEAKER) (test fmms=701) 1.11 mmol/L 1.12-1.27 PH, BLOOD (BEAKER) (test mtet=1776) 7.42 [id number] 07:07:00 Test Item Value Reference Range Comments PHOSPHORUS (BEAKER) (test jlik=399) 3.5 mg/dL 2.3-4.7 [id number] 07:07:00 Test Item Value Reference Range Comments MAGNESIUM (BEAKER) (test hqpa=388) 1.8 mg/dL 1.6-2.6 COMPREHENSIVE METABOLIC [id number] 07:07:00 Test Item Value Reference Range Comments TOTAL PROTEIN (BEAKER) 6.7 gm/dL 6.0-8.3 (test xcjg=151) ALBUMIN (BEAKER) (test 3.1 g/dL 3.5-5.0 vcdw=7706) ALKALINE PHOSPHATASE 53 U/L 40-150 (BEAKER) (test kqzd=725) BILIRUBIN TOTAL (BEAKER) 0.6 mg/dL 0.2-1.2 (test sksi=550) SODIUM (BEAKER) (test 139 meq/L 136-145 gmzz=492) POTASSIUM (BEAKER) (test 4.0 meq/L 3.5-5.1 jbve=486) CHLORIDE (BEAKER) (test 103 meq/L 98-107 moea=509) CO2 (BEAKER) (test 27 meq/L 22-29 tixk=072) BLOOD UREA NITROGEN 16 mg/dL 7-21 (BEAKER) (test suhx=409) CREATININE (BEAKER) (test 1.34 mg/dL 0.57-1.25 sexk=925) GLUCOSE RANDOM (BEAKER) 116 mg/dL 70-105 (test iogz=920) CALCIUM (BEAKER) (test 9.2 mg/dL 8.4-10.2 drre=794) AST (SGOT) (BEAKER) (test 15 U/L 5-34 slml=627) ALT (SGPT) (BEAKER) (test 11 U/L 6-55 azez=494) EGFR (BEAKER) (test 47 mL/min/1.73 sq m ESTIMATED GFR IS NOT szde=4024) ACCURATE CREATININE CLEARANCE IN PREDICTING GLOMERULAR FILTRATION RATE. ESTIMATED GFR IS NOT APPLICABLE FOR DIALYSIS PATIENTS. CBC W/PLT COUNT & AUTO [id number] 06:52:00 Test Item Value Reference Range Comments WHITE BLOOD CELL COUNT (BEAKER) (test mpxu=539) 12.8 K/ L 3.5-10.5 RED BLOOD CELL COUNT (BEAKER) (test inex=993) 2.43 M/ L 3.93-5.22 HEMOGLOBIN (BEAKER) (test xzzu=304) 7.2 GM/DL 11.2-15.7 HEMATOCRIT (BEAKER) (test fmho=176) 23.8 % 34.1-44.9 MEAN CORPUSCULAR VOLUME (BEAKER) (test kvdg=988) 97.9 fL 79.4-94.8 MEAN CORPUSCULAR HEMOGLOBIN (BEAKER) (test 29.6 pg 25.6-32.2 yfoe=282) MEAN CORPUSCULAR HEMOGLOBIN CONC (BEAKER) (test 30.3 GM/DL 32.2-35.5 stbu=721) RED CELL DISTRIBUTION WIDTH (BEAKER) (test 15.0 % 11.7-14.4 wzln=822) PLATELET COUNT (BEAKER) (test dejx=132) 456 K/CU MM 150-450 MEAN PLATELET VOLUME (BEAKER) (test tdgj=062) 10.3 fL 9.4-12.3 NUCLEATED RED BLOOD CELLS (BEAKER) (test 0 /100 WBC 0-0 ooor=512) NEUTROPHILS RELATIVE PERCENT (BEAKER) (test 82 % coxy=647) LYMPHOCYTES RELATIVE PERCENT (BEAKER) (test 9 % rtxm=058) MONOCYTES RELATIVE PERCENT (BEAKER) (test 6 % mvjn=116) EOSINOPHILS RELATIVE PERCENT (BEAKER) (test 2 % awza=304) BASOPHILS RELATIVE PERCENT (BEAKER) (test 0 % evsc=011) NEUTROPHILS ABSOLUTE COUNT (BEAKER) (test 10.52 K/ L 1.56-6.13 skza=332) LYMPHOCYTES ABSOLUTE COUNT (BEAKER) (test 1.19 K/ L 1.18-3.74 ylsl=584) MONOCYTES ABSOLUTE COUNT (BEAKER) (test 0.73 K/ L 0.24-0.36 orpl=536) EOSINOPHILS ABSOLUTE COUNT (BEAKER) (test 0.22 K/ L 0.04-0.36 hlqe=629) BASOPHILS ABSOLUTE COUNT (BEAKER) (test 0.04 K/ L 0.01-0.08 wnae=168) IMMATURE GRANULOCYTES-RELATIVE PERCENT (BEAKER) 1 % 0-1 (test bswf=3675) POCT-GLUCOSE [id number] 21:47:00 Test Item Value Reference Range Comments POC-GLUCOSE METER (BEAKER) 106 mg/dL 70-110 TESTED AT [address] (test mwpi=2928) [place] [address] POCT-GLUCOSE [id number] 18:50:00 Test Item Value Reference Range Comments POC-GLUCOSE METER (BEAKER) 175 mg/dL 70-110 TESTED AT [address] (test erdo=1292) [place] [address] [id number] 15:18:00 Test Item Value Reference Range Comments POTASSIUM (BEAKER) (test qweb=948) 3.7 meq/L 3.5-5.1 [id number] 15:18:00 Test Item Value Reference Range Comments MAGNESIUM (BEAKER) (test lomc=805) 2.2 mg/dL 1.6-2.6 POCT-GLUCOSE [id number] 11:48:00 Test Item Value Reference Range Comments POC-GLUCOSE METER (BEAKER) 131 mg/dL 70-110 TESTED AT [address] (test veyv=3246) [place] [address] BLOOD GAS, [id number] 11:46:00 Test Item Value Reference Range Comments PH ARTERIAL (BEAKER) (test fgnc=208) 7.43 7.35-7.45 PCO2 ARTERIAL (BEAKER) (test qklq=362) 46 mmHg 35-45 PO2 ARTERIAL (BEAKER) (test axyi=270) 83 mmHg 80-90 O2 SATURATION ARTERIAL (BEAKER) (test rsnw=802) 96.5 % 96.0-97.0 HCO3 ARTERIAL (BEAKER) (test engd=918) 30 mmol/L 21-29 BASE EXCESS ARTERIAL (BEAKER) (test qngm=218) 4.8 mmol/L -2.0-3.0 PATIENT TEMPERATURE (BEAKER) (test vmtr=2062) 36.9 C FIO2 (BEAKER) (test ipyv=0734) 36.0 % POCT-GLUCOSE [id number] 08:29:00 Test Item Value Reference Range Comments POC-GLUCOSE METER (BEAKER) 129 mg/dL 70-110 TESTED AT [facility] [address] (test thjr=4512) [place] [address] CALCIUM, [id number] 04:18:00 Test Item Value Reference Range Comments CALCIUM IONIZED (BEAKER) (test begt=957) 1.11 mmol/L 1.12-1.27 PH, BLOOD (BEAKER) (test hact=1694) 7.40 B-TYPE NATRIURETIC FACTOR (BNP)2017-07-29 04:06:00 Test Item Value Reference Range Comments B-TYPE NATRIURETIC PEPTIDE (BEAKER) (test 982 pg/mL 0-100 ttll=803) [id number] 03:59:00 Test Item Value Reference Range Comments PHOSPHORUS (BEAKER) (test npje=369) 3.6 mg/dL 2.3-4.7 [id number] 03:59:00 Test Item Value Reference Range Comments MAGNESIUM (BEAKER) (test uiuw=845) 1.9 mg/dL 1.6-2.6 BASIC METABOLIC [id number] 03:59:00 Test Item Value Reference Range Comments SODIUM (BEAKER) (test 141 meq/L 136-145 kbxm=875) POTASSIUM (BEAKER) (test 3.1 meq/L 3.5-5.1 wrzu=731) CHLORIDE (BEAKER) (test 103 meq/L 98-107 zued=587) CO2 (BEAKER) (test 26 meq/L 22-29 qpnq=193) BLOOD UREA NITROGEN 17 mg/dL 7-21 (BEAKER) (test jlhv=222) CREATININE (BEAKER) (test 1.43 mg/dL 0.57-1.25 pljl=793) GLUCOSE RANDOM (BEAKER) 110 mg/dL 70-105 (test weje=654) CALCIUM (BEAKER) (test 9.0 mg/dL 8.4-10.2 hgwu=112) EGFR (BEAKER) (test 44 mL/min/1.73 sq m ESTIMATED GFR IS NOT zras=0211) ACCURATE CREATININE CLEARANCE IN PREDICTING GLOMERULAR FILTRATION RATE. ESTIMATED GFR IS NOT APPLICABLE FOR DIALYSIS PATIENTS. CBC (HEMOGRAM ONLY)2017-07-29 03:51:00 Test Item Value Reference Range Comments WHITE BLOOD CELL COUNT (BEAKER) (test fzlo=070) 12.2 K/ L 3.5-10.5 RED BLOOD CELL COUNT (BEAKER) (test llij=714) 2.48 M/ L 3.93-5.22 HEMOGLOBIN (BEAKER) (test qqvg=808) 7.4 GM/DL 11.2-15.7 HEMATOCRIT (BEAKER) (test havw=582) 24.2 % 34.1-44.9 MEAN CORPUSCULAR VOLUME (BEAKER) (test enkn=274) 97.6 fL 79.4-94.8 MEAN CORPUSCULAR HEMOGLOBIN (BEAKER) (test 29.8 pg 25.6-32.2 pbos=593) MEAN CORPUSCULAR HEMOGLOBIN CONC (BEAKER) (test 30.6 GM/DL 32.2-35.5 pypc=491) RED CELL DISTRIBUTION WIDTH (BEAKER) (test 15.1 % 11.7-14.4 vfci=009) PLATELET COUNT (BEAKER) (test hyst=400) 410 K/CU MM 150-450 MEAN PLATELET VOLUME (BEAKER) (test adrf=914) 10.2 fL 9.4-12.3 NUCLEATED RED BLOOD CELLS (BEAKER) (test 0 /100 WBC 0-0 xmzw=579) POCT-GLUCOSE [id number] 23:55:00 Test Item Value Reference Range Comments POC-GLUCOSE METER (BEAKER) 164 mg/dL 70-110 TESTED AT [address] (test xkba=8999) [facility] [address] HERPES VIRUS ANTIBODY, [id number] 11:02:00 Test Item Value Reference Range Comments HERPES VIRUS IGM (BEAKER) (test wifh=0759) Negative HSV IgM 1=NEGATIVEHSV IgM 2=NEGATIVETOXOPLASMA GONDII ANTIBODY, [id number] 11 :02:00 Test Item Value Reference Range Comments TOXOPLASMA IGM ANTIBODY (BEAKER) (test xczg=651) Negative RAD, CHEST, 1 VIEW, NON [id number] 10:48:00Reason for exam:->acute respiratory insufficiencyShould this be performed at the bedside?->YesFINAL REPORT Chest one view INDICATION: Acute respiratory insufficiency COMPARISON: 07/27/2017 IMPRESSION: The PA catheter has been removed. A right jugular sheath remains. The left diaphragm remains elevated. There is pulmonary vascular congestion with interstitial mild edema. Stable basilar opacities are present, atelectasis versus pneumonitis. Minimal pleural effusions are suspected. Aortic dilatation and tortuosity are exaggerated by obliquity. No pneumothorax is seen. Signed: Yoshi Martinez MDReport Verified Date/Time: 07/28/2017 10:48:24 Reading Location: [facility] Radiology Reading Room [id number] 05:13:00 Test Item Value Reference Range Comments PHOSPHORUS (BEAKER) (test uuca=097) 3.3 mg/dL 2.3-4.7 [id number] 05:13:00 Test Item Value Reference Range Comments MAGNESIUM (BEAKER) (test iivi=771) 1.9 mg/dL 1.6-2.6 HEPATIC FUNCTION [id number] 05:13:00 Test Item Value Reference Range Comments TOTAL PROTEIN (BEAKER) (test rpxb=674) 7.5 gm/dL 6.0-8.3 ALBUMIN (BEAKER) (test xegn=2493) 3.6 g/dL 3.5-5.0 BILIRUBIN TOTAL (BEAKER) (test pirp=469) 0.9 mg/dL 0.2-1.2 BILIRUBIN DIRECT (BEAKER) (test wmea=260) 0.4 mg/dL 0.1-0.5 ALKALINE PHOSPHATASE (BEAKER) (test rbkd=118) 66 U/L 40-150 AST (SGOT) (BEAKER) (test irfw=690) 21 U/L 5-34 ALT (SGPT) (BEAKER) (test owaq=845) 17 U/L 6-55 COMPREHENSIVE METABOLIC [id number] 05:13:00 Test Item Value Reference Range Comments TOTAL PROTEIN (BEAKER) 7.5 gm/dL 6.0-8.3 (test gnii=919) ALBUMIN (BEAKER) (test 3.6 g/dL 3.5-5.0 uxhq=4368) ALKALINE PHOSPHATASE 66 U/L 40-150 (BEAKER) (test dsuc=620) BILIRUBIN TOTAL (BEAKER) 0.9 mg/dL 0.2-1.2 (test flen=272) SODIUM (BEAKER) (test 143 meq/L 136-145 ccsy=090) POTASSIUM (BEAKER) (test 3.5 meq/L 3.5-5.1 xxsp=510) CHLORIDE (BEAKER) (test 105 meq/L 98-107 zdup=971) CO2 (BEAKER) (test 25 meq/L 22-29 fsxr=235) BLOOD UREA NITROGEN 18 mg/dL 7-21 (BEAKER) (test xeph=067) CREATININE (BEAKER) (test 1.43 mg/dL 0.57-1.25 acrl=315) GLUCOSE RANDOM (BEAKER) 130 mg/dL 70-105 (test qgei=509) CALCIUM (BEAKER) (test 9.6 mg/dL 8.4-10.2 xzwm=143) AST (SGOT) (BEAKER) (test 21 U/L 5-34 nugw=273) ALT (SGPT) (BEAKER) (test 17 U/L 6-55 onis=509) EGFR (BEAKER) (test 44 mL/min/1.73 sq m ESTIMATED GFR IS NOT rcep=8631) ACCURATE CREATININE CLEARANCE IN PREDICTING GLOMERULAR FILTRATION RATE. ESTIMATED GFR IS NOT APPLICABLE FOR DIALYSIS PATIENTS. LACTATE DEHYDROGENASE (LDH)2017-07-28 05:13:00 Test Item Value Reference Range Comments LACTATE DEHYDROGENASE (BEAKER) (test hubb=468) 639 U/L 125-220 CBC W/PLT COUNT & AUTO [id number] 04:57:00 Test Item Value Reference Range Comments WHITE BLOOD CELL COUNT (BEAKER) (test kxqw=461) 13.6 K/ L 3.5-10.5 RED BLOOD CELL COUNT (BEAKER) (test ptus=430) 2.86 M/ L 3.93-5.22 HEMOGLOBIN (BEAKER) (test nizd=583) 8.5 GM/DL 11.2-15.7 HEMATOCRIT (BEAKER) (test ikbi=521) 28.9 % 34.1-44.9 MEAN CORPUSCULAR VOLUME (BEAKER) (test tflc=322) 101.0 fL 79.4-94.8 MEAN CORPUSCULAR HEMOGLOBIN (BEAKER) (test 29.7 pg 25.6-32.2 hsgm=419) MEAN CORPUSCULAR HEMOGLOBIN CONC (BEAKER) (test 29.4 GM/DL 32.2-35.5 aytj=586) RED CELL DISTRIBUTION WIDTH (BEAKER) (test 15.2 % 11.7-14.4 unby=577) PLATELET COUNT (BEAKER) (test kbkw=767) 375 K/CU MM 150-450 MEAN PLATELET VOLUME (BEAKER) (test shyt=604) 10.7 fL 9.4-12.3 NUCLEATED RED BLOOD CELLS (BEAKER) (test 0 /100 WBC 0-0 suvo=974) NEUTROPHILS RELATIVE PERCENT (BEAKER) (test 82 % swvd=093) LYMPHOCYTES RELATIVE PERCENT (BEAKER) (test 9 % zskc=985) MONOCYTES RELATIVE PERCENT (BEAKER) (test 6 % dwyb=270) EOSINOPHILS RELATIVE PERCENT (BEAKER) (test 2 % mwxx=310) BASOPHILS RELATIVE PERCENT (BEAKER) (test 1 % pplb=597) NEUTROPHILS ABSOLUTE COUNT (BEAKER) (test 11.11 K/ L 1.56-6.13 cctc=921) LYMPHOCYTES ABSOLUTE COUNT (BEAKER) (test 1.17 K/ L 1.18-3.74 utcg=495) MONOCYTES ABSOLUTE COUNT (BEAKER) (test 0.83 K/ L 0.24-0.36 mxfh=293) EOSINOPHILS ABSOLUTE COUNT (BEAKER) (test 0.25 K/ L 0.04-0.36 dypl=066) BASOPHILS ABSOLUTE COUNT (BEAKER) (test 0.07 K/ L 0.01-0.08 donz=319) IMMATURE GRANULOCYTES-RELATIVE PERCENT (BEAKER) 1 % 0-1 (test hkux=2155) OCCULT BLOOD, [id number] 01:02:00 Test Item Value Reference Range Comments FECAL OCCULT BLOOD (BEAKER) (test rzeo=330) Negative Negative POCT-GLUCOSE [id number] 00:46:00 Test Item Value Reference Range Comments POC-GLUCOSE METER (BEAKER) 149 mg/dL 70-110 TESTED AT [facility] [address] (test zsfh=5037) [facility] [address] C. DIFFICILE GDH [id number] 19:51:00 Test Item Value Reference Range Comments CDT TOXIN (test Negative Negative mthr=[id number]) CDT GDH ANTIGEN (test Negative Negative No indication of Clostridium rdls=[id number]) difficile infection and no colonization. Discontinue enteric isolation and therapy. Testing performed by [employer] Rapid Cassette Assay. For GDH, published sensitivity of the assay is 98.7% compared to cytotoxicity testing. For Toxin AB, published sensitivity is 87.8% and specificity 99.4% compared to cytotoxicity testing.Verification of kit performance was done by the [facility] Microbiology Lab prior to clinical use.POCT-GLUCOSE [id number] 18:11:00 Test Item Value Reference Range Comments POC-GLUCOSE METER (BEAKER) 201 mg/dL 70-110 TESTED AT [address] (test eawr=7650) [place] [id number] BLOOD GAS, [id number] 17:03:00 Test Item Value Reference Range Comments PH ARTERIAL (BEAKER) (test riih=477) 7.41 7.35-7.45 PCO2 ARTERIAL (BEAKER) (test pifn=706) 45 mmHg 35-45 PO2 ARTERIAL (BEAKER) (test vlec=191) 94 mmHg 80-90 O2 SATURATION ARTERIAL (BEAKER) (test yfoz=497) 97.3 % 96.0-97.0 HCO3 ARTERIAL (BEAKER) (test pnic=108) 28 mmol/L 21-29 BASE EXCESS ARTERIAL (BEAKER) (test vzsv=668) 2.3 mmol/L -2.0-3.0 PATIENT TEMPERATURE (BEAKER) (test xsqb=4348) 36.6 C FIO2 (BEAKER) (test mupj=3000) 40.0 % POCT-GLUCOSE [id number] 12:44:00 Test Item Value Reference Range Comments POC-GLUCOSE METER (BEAKER) 117 mg/dL 70-110 TESTED AT [address] (test gyas=5158) [place] [id number] B-TYPE NATRIURETIC FACTOR (BNP)2017-07-27 11:13:00 Test Item Value Reference Range Comments B-TYPE NATRIURETIC PEPTIDE (BEAKER) (test 1198 pg/mL 0-100 fdoq=792) LACTIC ACID, VENOUS, WHOLE [id number] 11:12:00 Test Item Value Reference Range Comments LACTATE BLOOD VENOUS (2) (BEAKER) (test 0.7 mmol/L 0.5-2.2 nyhf=1459) Effective 08/06/2015: Units/Reference Range ChangeNew: 0.5-2.2 mmol/L Previous: 5 -20 mg/dLOXYGEN SATURATION, [id number] 10:28:00 Test Item Value Reference Range Comments O2 SATURATION (MEASURED) (BEAKER) (test cvsp=6460) 59.6 % RAD, CHEST, 1 VIEW, NON [id number] 08:23:00Reason for exam:->acute respiratory insufficiencyShould this be performed at the bedside?->YesFINAL REPORT Chest one view INDICATION: Acute respiratory insufficiency COMPARISON: 07/26/2017 IMPRESSION: Right jugular PA catheter is again noted. The left diaphragm remains elevated. There is pulmonary vascular congestion with interstitial mild edema. Stable basilar opacities are present, atelectasis versus pneumonitis. Minimal pleural effusions are suspected. Aortic dilatation and tortuosity are exaggerated by obliquity. No pneumothorax is seen. Signed: Yoshi MartinezMDReport Verified Date/Time: 07/27/2017 08:23 :08 Reading Location: [facility] Radiology Reading Room POCT-GLUCOSE [id number] 07:53:00 Test Item Value Reference Range Comments POC-GLUCOSE METER (BEAKER) 124 mg/dL 70-110 TESTED AT [address] (test fvqg=4598) [facility] [id number] BASIC METABOLIC [id number] 06:33:00 Test Item Value Reference Range Comments SODIUM (BEAKER) (test 144 meq/L 136-145 zxlf=812) POTASSIUM (BEAKER) (test 3.8 meq/L 3.5-5.1 bxbt=750) CHLORIDE (BEAKER) (test 109 meq/L 98-107 jklr=165) CO2 (BEAKER) (test 24 meq/L 22-29 dqog=403) BLOOD UREA NITROGEN 20 mg/dL 7-21 (BEAKER) (test wxsx=694) CREATININE (BEAKER) (test 1.40 mg/dL 0.57-1.25 fwpy=359) GLUCOSE RANDOM (BEAKER) 111 mg/dL 70-105 (test fdyz=673) CALCIUM (BEAKER) (test 8.8 mg/dL 8.4-10.2 lneg=781) EGFR (BEAKER) (test 45 mL/min/1.73 sq m ESTIMATED GFR IS NOT rbah=8454) ACCURATE CREATININE CLEARANCE IN PREDICTING GLOMERULAR FILTRATION RATE. ESTIMATED GFR IS NOT APPLICABLE FOR DIALYSIS PATIENTS. [id number] 06:24:00 Test Item Value Reference Range Comments PHOSPHORUS (BEAKER) (test hytu=346) 3.3 mg/dL 2.3-4.7 BASIC METABOLIC [id number] 06:24:00 Test Item Value Reference Range Comments SODIUM (BEAKER) (test 145 meq/L 136-145 ifhl=534) POTASSIUM (BEAKER) (test 3.8 meq/L 3.5-5.1 mxgy=714) CHLORIDE (BEAKER) (test 110 meq/L 98-107 rkvf=716) CO2 (BEAKER) (test 24 meq/L 22-29 sifm=431) BLOOD UREA NITROGEN 21 mg/dL 7-21 (BEAKER) (test aqbk=079) CREATININE (BEAKER) (test 1.39 mg/dL 0.57-1.25 pdwh=232) GLUCOSE RANDOM (BEAKER) 112 mg/dL 70-105 (test lsli=926) CALCIUM (BEAKER) (test 8.9 mg/dL 8.4-10.2 hvzi=741) EGFR (BEAKER) (test 45 mL/min/1.73 sq m ESTIMATED GFR IS NOT qxbe=6618) ACCURATE CREATININE CLEARANCE IN PREDICTING GLOMERULAR FILTRATION RATE. ESTIMATED GFR IS NOT APPLICABLE FOR DIALYSIS PATIENTS. [id number] 03:27:00 Test Item Value Reference Range Comments PROCALCITONIN (BEAKER) (test enxe=2624) 0.28 ng/mL <0.05 SEPSIS RISK (ng/mL)Low: 0.05-0.50Intermediate: 0.51-2.00High: & gt;=2.01LACTATE DEHYDROGENASE (LDH)2017-07-27 03:07:00 Test Item Value Reference Range Comments LACTATE DEHYDROGENASE (BEAKER) (test vzbp=500) 615 U/L 125-220 HEPATIC FUNCTION [id number] 03:07:00 Test Item Value Reference Range Comments TOTAL PROTEIN (BEAKER) (test igys=302) 6.8 gm/dL 6.0-8.3 ALBUMIN (BEAKER) (test ltgf=0253) 3.2 g/dL 3.5-5.0 BILIRUBIN TOTAL (BEAKER) (test djpj=329) 0.9 mg/dL 0.2-1.2 BILIRUBIN DIRECT (BEAKER) (test yjnu=749) 0.5 mg/dL 0.1-0.5 ALKALINE PHOSPHATASE (BEAKER) (test fegm=449) 58 U/L 40-150 AST (SGOT) (BEAKER) (test feab=164) 21 U/L 5-34 ALT (SGPT) (BEAKER) (test pndr=390) 15 U/L 6-55 CALCIUM, [id number] 02:57:00 Test Item Value Reference Range Comments CALCIUM IONIZED (BEAKER) (test ucmt=412) 1.14 mmol/L 1.12-1.27 PH, BLOOD (BEAKER) (test qrab=8790) 7.42 CBC W/PLT COUNT & AUTO [id number] 02:56:00 Test Item Value Reference Range Comments WHITE BLOOD CELL COUNT (BEAKER) (test tjxl=975) 12.4 K/ L 3.5-10.5 RED BLOOD CELL COUNT (BEAKER) (test tjqj=220) 2.50 M/ L 3.93-5.22 HEMOGLOBIN (BEAKER) (test ykvw=482) 7.4 GM/DL 11.2-15.7 HEMATOCRIT (BEAKER) (test feas=033) 24.7 % 34.1-44.9 MEAN CORPUSCULAR VOLUME (BEAKER) (test oqez=293) 98.8 fL 79.4-94.8 MEAN CORPUSCULAR HEMOGLOBIN (BEAKER) (test 29.6 pg 25.6-32.2 hbix=246) MEAN CORPUSCULAR HEMOGLOBIN CONC (BEAKER) (test 30.0 GM/DL 32.2-35.5 iovf=676) RED CELL DISTRIBUTION WIDTH (BEAKER) (test 15.1 % 11.7-14.4 aokp=886) PLATELET COUNT (BEAKER) (test pxjm=352) 233 K/CU MM 150-450 MEAN PLATELET VOLUME (BEAKER) (test lymk=424) 10.5 fL 9.4-12.3 NUCLEATED RED BLOOD CELLS (BEAKER) (test 0 /100 WBC 0-0 xzjs=972) NEUTROPHILS RELATIVE PERCENT (BEAKER) (test 80 % mejg=427) LYMPHOCYTES RELATIVE PERCENT (BEAKER) (test 9 % fyky=440) MONOCYTES RELATIVE PERCENT (BEAKER) (test 7 % cgpw=642) EOSINOPHILS RELATIVE PERCENT (BEAKER) (test 2 % zboy=128) BASOPHILS RELATIVE PERCENT (BEAKER) (test 0 % xdyk=070) NEUTROPHILS ABSOLUTE COUNT (BEAKER) (test 9.94 K/ L 1.56-6.13 bpey=490) LYMPHOCYTES ABSOLUTE COUNT (BEAKER) (test 1.15 K/ L 1.18-3.74 oqqt=883) MONOCYTES ABSOLUTE COUNT (BEAKER) (test 0.90 K/ L 0.24-0.36 pkjh=647) EOSINOPHILS ABSOLUTE COUNT (BEAKER) (test 0.24 K/ L 0.04-0.36 gprp=089) BASOPHILS ABSOLUTE COUNT (BEAKER) (test 0.05 K/ L 0.01-0.08 paso=245) IMMATURE GRANULOCYTES-RELATIVE PERCENT (BEAKER) 1 % 0-1 (test hius=8612) [id number] 01:29:00 Test Item Value Reference Range Comments PHOSPHORUS (BEAKER) (test qyhi=183) 3.5 mg/dL 2.3-4.7 BASIC METABOLIC [id number] 01:29:00 Test Item Value Reference Range Comments SODIUM (BEAKER) (test 145 meq/L 136-145 iqpx=904) POTASSIUM (BEAKER) (test 3.4 meq/L 3.5-5.1 cyia=288) CHLORIDE (BEAKER) (test 107 meq/L 98-107 gblm=065) CO2 (BEAKER) (test 26 meq/L 22-29 venh=716) BLOOD UREA NITROGEN 21 mg/dL 7-21 (BEAKER) (test ogug=917) CREATININE (BEAKER) (test 1.47 mg/dL 0.57-1.25 edvn=284) GLUCOSE RANDOM (BEAKER) 138 mg/dL 70-105 (test rkoy=086) CALCIUM (BEAKER) (test 9.1 mg/dL 8.4-10.2 syld=092) EGFR (BEAKER) (test 43 mL/min/1.73 sq m ESTIMATED GFR IS NOT nemm=0615) ACCURATE CREATININE CLEARANCE IN PREDICTING GLOMERULAR FILTRATION RATE. ESTIMATED GFR IS NOT APPLICABLE FOR DIALYSIS PATIENTS. POCT-GLUCOSE [id number] 22:08:00 Test Item Value Reference Range Comments POC-GLUCOSE METER (BEAKER) 166 mg/dL 70-110 TESTED AT [facility] [address] [facility] (test xppe=5137) [facility] [address] [id number] 21:22:00 Test Item Value Reference Range Comments MAGNESIUM (BEAKER) (test jttm=025) 2.2 mg/dL 1.6-2.6 [id number] 19:23:00 Test Item Value Reference Range Comments PHOSPHORUS (BEAKER) (test htit=264) 2.9 mg/dL 2.3-4.7 BASIC METABOLIC [id number] 19:23:00 Test Item Value Reference Range Comments SODIUM (BEAKER) (test 145 meq/L 136-145 bqss=230) POTASSIUM (BEAKER) (test 3.6 meq/L 3.5-5.1 gexe=460) CHLORIDE (BEAKER) (test 109 meq/L 98-107 cbqz=420) CO2 (BEAKER) (test 24 meq/L 22-29 pxwg=913) BLOOD UREA NITROGEN 22 mg/dL 7-21 (BEAKER) (test nokj=874) CREATININE (BEAKER) (test 1.48 mg/dL 0.57-1.25 wtfs=153) GLUCOSE RANDOM (BEAKER) 150 mg/dL 70-105 (test xood=622) CALCIUM (BEAKER) (test 9.0 mg/dL 8.4-10.2 isca=940) EGFR (BEAKER) (test 42 mL/min/1.73 sq m ESTIMATED GFR IS NOT nlkd=1359) ACCURATE CREATININE CLEARANCE IN PREDICTING GLOMERULAR FILTRATION RATE. ESTIMATED GFR IS NOT APPLICABLE FOR DIALYSIS PATIENTS. POCT-GLUCOSE [id number] 18:13:00 Test Item Value Reference Range Comments POC-GLUCOSE METER (BEAKER) 188 mg/dL 70-110 TESTED AT [facility] [address] [facility] (test lhoh=2103) [facility] [address] [id number] 13:12:00 Test Item Value Reference Range Comments PHOSPHORUS (BEAKER) (test mqmg=812) 2.7 mg/dL 2.3-4.7 BASIC METABOLIC [id number] 13:12:00 Test Item Value Reference Range Comments SODIUM (BEAKER) (test 144 meq/L 136-145 ypyw=553) POTASSIUM (BEAKER) (test 3.5 meq/L 3.5-5.1 bamr=790) CHLORIDE (BEAKER) (test 108 meq/L 98-107 irrn=644) CO2 (BEAKER) (test 26 meq/L 22-29 cxto=283) BLOOD UREA NITROGEN 23 mg/dL 7-21 (BEAKER) (test vfia=427) CREATININE (BEAKER) (test 1.45 mg/dL 0.57-1.25 ngcw=343) GLUCOSE RANDOM (BEAKER) 183 mg/dL 70-105 (test orlt=496) CALCIUM (BEAKER) (test 8.5 mg/dL 8.4-10.2 kchg=299) EGFR (BEAKER) (test 43 mL/min/1.73 sq m ESTIMATED GFR IS NOT plpz=3365) ACCURATE CREATININE CLEARANCE IN PREDICTING GLOMERULAR FILTRATION RATE. ESTIMATED GFR IS NOT APPLICABLE FOR DIALYSIS PATIENTS. POCT-GLUCOSE [id number] 12:07:00 Test Item Value Reference Range Comments POC-GLUCOSE METER (BEAKER) 203 mg/dL 70-110 TESTED AT [facility] [address] [facility] (test fqqz=2529) [facility] [address] [id number] 09:50:00 Test Item Value Reference Range Comments MAGNESIUM (BEAKER) (test ndbr=745) 2.6 mg/dL 1.6-2.6 RAD, CHEST, 1 VIEW, NON [id number] 08:06:00Reason for exam:->acute respiratory insufficiencyShould this be performed at the bedside?->YesFINAL REPORT Chest one view INDICATION: Acute respiratory insufficiency COMPARISON: 07/25/2017 IMPRESSION: ET and NG tube have been removed. Right jugular PA catheter extends to the pulmonary outflow tract. The left diaphragm remains elevated. There is pulmonary vascular congestion with similar patchy basilar opacities that may reflect atelectasis or pneumonitis. A minimal rightpleural effusion is present. Aortic ectasia/tortuosity is exaggerated by obliquity. No pneumothorax is seen. Signed: Yoshi Martinez MDReport Verified Date/Time: 07/26/2017 08:06:19 [facility] Reading Room POCT-GLUCOSE [id number] 07:58:00 Test Item Value Reference Range Comments POC-GLUCOSE METER (BEAKER) 176 mg/dL 70-110 TESTED AT [facility] [address] [facility] (test kqhy=3234) [facility] [address] OXYGEN SATURATION, [id number] 05:23:00 Test Item Value Reference Range Comments O2 SATURATION (MEASURED) (BEAKER) (test mmpd=9571) 64.5 % calibrationBLOOD GAS, [id number] 04:43:00 Test Item Value Reference Range Comments PH ARTERIAL (BEAKER) (test skic=939) 7.44 7.35-7.45 PCO2 ARTERIAL (BEAKER) (test aspr=744) 44 mmHg 35-45 PO2 ARTERIAL (BEAKER) (test dgyh=817) 127 mmHg 80-90 O2 SATURATION ARTERIAL (BEAKER) (test efjf=942) 98.6 % 96.0-97.0 HCO3 ARTERIAL (BEAKER) (test xlun=147) 29 mmol/L 21-29 BASE EXCESS ARTERIAL (BEAKER) (test lklq=862) 4.6 mmol/L -2.0-3.0 PATIENT TEMPERATURE (BEAKER) (test zxxz=8591) 37.3 C FIO2 (BEAKER) (test nbtb=1162) 100.0 % [id number] 04:31:00 Test Item Value Reference Range Comments PHOSPHORUS (BEAKER) (test wzje=786) 3.4 mg/dL 2.3-4.7 [id number] 04:31:00 Test Item Value Reference Range Comments MAGNESIUM (BEAKER) (test lpey=358) 2.2 mg/dL 1.6-2.6 BASIC METABOLIC [id number] 04:31:00 Test Item Value Reference Range Comments SODIUM (BEAKER) (test 146 meq/L 136-145 anzm=211) POTASSIUM (BEAKER) (test 3.7 meq/L 3.5-5.1 jwlg=875) CHLORIDE (BEAKER) (test 108 meq/L 98-107 bgza=554) CO2 (BEAKER) (test 28 meq/L 22-29 xmez=288) BLOOD UREA NITROGEN 23 mg/dL 7-21 (BEAKER) (test ftci=946) CREATININE (BEAKER) (test 1.51 mg/dL 0.57-1.25 typs=310) GLUCOSE RANDOM (BEAKER) 151 mg/dL 70-105 (test jnog=071) CALCIUM (BEAKER) (test 9.4 mg/dL 8.4-10.2 hdyg=218) EGFR (BEAKER) (test 41 mL/min/1.73 sq m ESTIMATED GFR IS NOT cukh=3373) ACCURATE CREATININE CLEARANCE IN PREDICTING GLOMERULAR FILTRATION RATE. ESTIMATED GFR IS NOT APPLICABLE FOR DIALYSIS PATIENTS. HEPATIC FUNCTION [id number] 04:31:00 Test Item Value Reference Range Comments TOTAL PROTEIN (BEAKER) (test ayxb=615) 6.6 gm/dL 6.0-8.3 ALBUMIN (BEAKER) (test yfvp=7304) 3.2 g/dL 3.5-5.0 BILIRUBIN TOTAL (BEAKER) (test dioj=143) 1.0 mg/dL 0.2-1.2 BILIRUBIN DIRECT (BEAKER) (test iran=813) 0.5 mg/dL 0.1-0.5 ALKALINE PHOSPHATASE (BEAKER) (test mnfj=750) 60 U/L 40-150 AST (SGOT) (BEAKER) (test ujri=039) 25 U/L 5-34 ALT (SGPT) (BEAKER) (test vxiz=348) 18 U/L 6-55 COMPREHENSIVE METABOLIC [id number] 04:31:00 Test Item Value Reference Range Comments TOTAL PROTEIN (BEAKER) 6.6 gm/dL 6.0-8.3 (test dgzs=589) ALBUMIN (BEAKER) (test 3.2 g/dL 3.5-5.0 tynq=5065) ALKALINE PHOSPHATASE 60 U/L 40-150 (BEAKER) (test ieuo=209) BILIRUBIN TOTAL (BEAKER) 1.0 mg/dL 0.2-1.2 (test vlwv=658) SODIUM (BEAKER) (test 146 meq/L 136-145 dayt=272) POTASSIUM (BEAKER) (test 3.7 meq/L 3.5-5.1 duyj=563) CHLORIDE (BEAKER) (test 108 meq/L 98-107 mqhz=371) CO2 (BEAKER) (test 28 meq/L 22-29 mixo=001) BLOOD UREA NITROGEN 23 mg/dL 7-21 (BEAKER) (test wqnn=223) CREATININE (BEAKER) (test 1.51 mg/dL 0.57-1.25 clgy=600) GLUCOSE RANDOM (BEAKER) 151 mg/dL 70-105 (test elbm=240) CALCIUM (BEAKER) (test 9.4 mg/dL 8.4-10.2 jdpd=630) AST (SGOT) (BEAKER) (test 25 U/L 5-34 nqll=321) ALT (SGPT) (BEAKER) (test 18 U/L 6-55 llnl=209) EGFR (BEAKER) (test 41 mL/min/1.73 sq m ESTIMATED GFR IS NOT qbwk=3927) ACCURATE CREATININE CLEARANCE IN PREDICTING GLOMERULAR FILTRATION RATE. ESTIMATED GFR IS NOT APPLICABLE FOR DIALYSIS PATIENTS. LACTATE DEHYDROGENASE (LDH)2017-07-26 04:31:00 Test Item Value Reference Range Comments LACTATE DEHYDROGENASE (BEAKER) (test zvbp=755) 661 U/L 125-220 CALCIUM, [id number] 04:23:00 Test Item Value Reference Range Comments CALCIUM IONIZED (BEAKER) (test cotk=243) 1.15 mmol/L 1.12-1.27 PH, BLOOD (BEAKER) (test peic=6933) 7.47 CBC W/PLT COUNT & AUTO [id number] 04:20:00 Test Item Value Reference Range Comments WHITE BLOOD CELL COUNT (BEAKER) (test iesv=696) 13.0 K/ L 3.5-10.5 RED BLOOD CELL COUNT (BEAKER) (test jayu=681) 2.56 M/ L 3.93-5.22 HEMOGLOBIN (BEAKER) (test kktj=736) 7.6 GM/DL 11.2-15.7 HEMATOCRIT (BEAKER) (test qyry=249) 25.4 % 34.1-44.9 MEAN CORPUSCULAR VOLUME (BEAKER) (test rldm=691) 99.2 fL 79.4-94.8 MEAN CORPUSCULAR HEMOGLOBIN (BEAKER) (test 29.7 pg 25.6-32.2 tcve=658) MEAN CORPUSCULAR HEMOGLOBIN CONC (BEAKER) (test 29.9 GM/DL 32.2-35.5 miyp=309) RED CELL DISTRIBUTION WIDTH (BEAKER) (test 15.0 % 11.7-14.4 kdag=685) PLATELET COUNT (BEAKER) (test arvs=657) 161 K/CU MM 150-450 MEAN PLATELET VOLUME (BEAKER) (test tfoc=227) 11.0 fL 9.4-12.3 NUCLEATED RED BLOOD CELLS (BEAKER) (test 0 /100 WBC 0-0 mzhb=235) NEUTROPHILS RELATIVE PERCENT (BEAKER) (test 79 % eyri=946) LYMPHOCYTES RELATIVE PERCENT (BEAKER) (test 10 % iuaw=976) MONOCYTES RELATIVE PERCENT (BEAKER) (test 7 % hpea=770) EOSINOPHILS RELATIVE PERCENT (BEAKER) (test 2 % nprc=580) BASOPHILS RELATIVE PERCENT (BEAKER) (test 1 % eqdw=109) NEUTROPHILS ABSOLUTE COUNT (BEAKER) (test 10.33 K/ L 1.56-6.13 oftj=740) LYMPHOCYTES ABSOLUTE COUNT (BEAKER) (test 1.35 K/ L 1.18-3.74 zrzw=469) MONOCYTES ABSOLUTE COUNT (BEAKER) (test 0.96 K/ L 0.24-0.36 pkdq=989) EOSINOPHILS ABSOLUTE COUNT (BEAKER) (test 0.19 K/ L 0.04-0.36 lzws=568) BASOPHILS ABSOLUTE COUNT (BEAKER) (test 0.07 K/ L 0.01-0.08 jxqo=112) IMMATURE GRANULOCYTES-RELATIVE PERCENT (BEAKER) 1 % 0-1 (test uous=9816) [id number] 21:19:00 Test Item Value Reference Range Comments PHOSPHORUS (BEAKER) (test hvvs=099) 4.4 mg/dL 2.3-4.7 [id number] 21:19:00 Test Item Value Reference Range Comments MAGNESIUM (BEAKER) (test aeej=111) 2.1 mg/dL 1.6-2.6 BASIC METABOLIC [id number] 21:19:00 Test Item Value Reference Range Comments SODIUM (BEAKER) (test 146 meq/L 136-145 fldi=551) POTASSIUM (BEAKER) (test 3.9 meq/L 3.5-5.1 lbff=857) CHLORIDE (BEAKER) (test 108 meq/L 98-107 cuzm=206) CO2 (BEAKER) (test 27 meq/L 22-29 cjiy=877) BLOOD UREA NITROGEN 24 mg/dL 7-21 (BEAKER) (test chft=809) CREATININE (BEAKER) (test 1.64 mg/dL 0.57-1.25 gtfg=365) GLUCOSE RANDOM (BEAKER) 120 mg/dL 70-105 (test ubqm=343) CALCIUM (BEAKER) (test 9.5 mg/dL 8.4-10.2 xjhr=907) EGFR (BEAKER) (test 38 mL/min/1.73 sq m ESTIMATED GFR IS NOT rxec=9720) ACCURATE CREATININE CLEARANCE IN PREDICTING GLOMERULAR FILTRATION RATE. ESTIMATED GFR IS NOT APPLICABLE FOR DIALYSIS PATIENTS. POCT-GLUCOSE [id number] 18:36:00 Test Item Value Reference Range Comments POC-GLUCOSE METER (BEAKER) 129 mg/dL 70-110 TESTED AT [address] (test lhwx=1921) [place] [id number] POCT-GLUCOSE [id number] 16:19:00 Test Item Value Reference Range Comments POC-GLUCOSE METER (BEAKER) 132 mg/dL 70-110 TESTED AT [address] (test nqyu=8584) [place] [address] [id number] 13:57:00 Test Item Value Reference Range Comments PHOSPHORUS (BEAKER) (test oagb=284) 4.2 mg/dL 2.3-4.7 BASIC METABOLIC [id number] 13:57:00 Test Item Value Reference Range Comments SODIUM (BEAKER) (test 147 meq/L 136-145 pnmm=117) POTASSIUM (BEAKER) (test 3.7 meq/L 3.5-5.1 zdio=836) CHLORIDE (BEAKER) (test 110 meq/L 98-107 oudu=137) CO2 (BEAKER) (test 25 meq/L 22-29 gswb=921) BLOOD UREA NITROGEN 23 mg/dL 7-21 (BEAKER) (test gnzf=442) CREATININE (BEAKER) (test 1.58 mg/dL 0.57-1.25 gwsf=516) GLUCOSE RANDOM (BEAKER) 129 mg/dL 70-105 (test unud=223) CALCIUM (BEAKER) (test 9.2 mg/dL 8.4-10.2 ytwa=658) EGFR (BEAKER) (test 39 mL/min/1.73 sq m ESTIMATED GFR IS NOT ljea=0602) ACCURATE CREATININE CLEARANCE IN PREDICTING GLOMERULAR FILTRATION RATE. ESTIMATED GFR IS NOT APPLICABLE FOR DIALYSIS PATIENTS. BLOOD GAS, [id number] 13:48:00 Test Item Value Reference Range Comments PH ARTERIAL (BEAKER) (test larv=583) 7.42 7.35-7.45 PCO2 ARTERIAL (BEAKER) (test ggzb=002) 47 mmHg 35-45 PO2 ARTERIAL (BEAKER) (test cagd=663) 202 mmHg 80-90 O2 SATURATION ARTERIAL (BEAKER) (test ligd=110) 99.4 % 96.0-97.0 HCO3 ARTERIAL (BEAKER) (test ocxd=583) 29 mmol/L 21-29 BASE EXCESS ARTERIAL (BEAKER) (test mztb=127) 4.4 mmol/L -2.0-3.0 PATIENT TEMPERATURE (BEAKER) (test hhvy=5557) 37.6 C FIO2 (BEAKER) (test apic=1495) 100.0 % POCT-GLUCOSE [id number] 13:31:00 Test Item Value Reference Range Comments POC-GLUCOSE METER (BEAKER) 128 mg/dL 70-110 TESTED AT [address] (test yeff=7662) [place] [id number] POCT-GLUCOSE [id number] 11:02:00 Test Item Value Reference Range Comments POC-GLUCOSE METER (BEAKER) 137 mg/dL 70-110 TESTED AT [address] (test tvrd=7715) [place] [id number] POCT-GLUCOSE [id number] 11:02:00 Test Item Value Reference Range Comments POC-GLUCOSE METER (BEAKER) 141 mg/dL 70-110 TESTED AT [address] (test ycpt=1111) [place] [address] POCT-GLUCOSE [id number] 11:02:00 Test Item Value Reference Range Comments POC-GLUCOSE METER (BEAKER) 104 mg/dL 70-110 TESTED AT [address] (test dhpr=5596) [place] [address] BLOOD [id number] 11:00:00 Test Item Value Reference Range Comments CULTURE (BEAKER) (test fmxz=2860) No growth in 5 days BLOOD [id number] 11:00:00 Test Item Value Reference Range Comments CULTURE (BEAKER) (test tacn=4918) No growth in 5 days CBC W/PLT COUNT & AUTO [id number] 08:54:00 Test Item Value Reference Range Comments WHITE BLOOD CELL COUNT (BEAKER) (test jnxj=434) 13.8 K/ L 3.5-10.5 RED BLOOD CELL COUNT (BEAKER) (test mteg=432) 2.54 M/ L 3.93-5.22 HEMOGLOBIN (BEAKER) (test vebm=083) 7.7 GM/DL 11.2-15.7 HEMATOCRIT (BEAKER) (test snkh=760) 25.2 % 34.1-44.9 MEAN CORPUSCULAR VOLUME (BEAKER) (test wtox=957) 99.2 fL 79.4-94.8 MEAN CORPUSCULAR HEMOGLOBIN (BEAKER) (test 30.3 pg 25.6-32.2 vpso=229) MEAN CORPUSCULAR HEMOGLOBIN CONC (BEAKER) (test 30.6 GM/DL 32.2-35.5 ioci=200) RED CELL DISTRIBUTION WIDTH (BEAKER) (test 15.2 % 11.7-14.4 huyj=387) PLATELET COUNT (BEAKER) (test rlne=664) 127 K/CU MM 150-450 MEAN PLATELET VOLUME (BEAKER) (test boxz=935) 10.6 fL 9.4-12.3 NUCLEATED RED BLOOD CELLS (BEAKER) (test 0 /100 WBC 0-0 rhxv=899) NEUTROPHILS RELATIVE PERCENT (BEAKER) (test 81 % eqzm=146) LYMPHOCYTES RELATIVE PERCENT (BEAKER) (test 8 % ixfd=642) MONOCYTES RELATIVE PERCENT (BEAKER) (test 9 % xjus=797) EOSINOPHILS RELATIVE PERCENT (BEAKER) (test 1 % thcg=016) BASOPHILS RELATIVE PERCENT (BEAKER) (test 0 % aoxs=811) NEUTROPHILS ABSOLUTE COUNT (BEAKER) (test 11.11 K/ L 1.56-6.13 vbnr=326) LYMPHOCYTES ABSOLUTE COUNT (BEAKER) (test 1.14 K/ L 1.18-3.74 zskj=748) MONOCYTES ABSOLUTE COUNT (BEAKER) (test 1.20 K/ L 0.24-0.36 mobq=284) EOSINOPHILS ABSOLUTE COUNT (BEAKER) (test 0.15 K/ L 0.04-0.36 xldv=067) BASOPHILS ABSOLUTE COUNT (BEAKER) (test 0.04 K/ L 0.01-0.08 tkoh=798) IMMATURE GRANULOCYTES-RELATIVE PERCENT (BEAKER) 1 % 0-1 (test igrj=4767) BLOOD GAS, [id number] 08:40:00 Test Item Value Reference Range Comments PH ARTERIAL (BEAKER) (test iidk=959) 7.43 7.35-7.45 PCO2 ARTERIAL (BEAKER) (test gotp=841) 35 mmHg 35-45 PO2 ARTERIAL (BEAKER) (test aeki=073) 82 mmHg 80-90 O2 SATURATION ARTERIAL (BEAKER) (test nftk=934) 95.7 % 96.0-97.0 HCO3 ARTERIAL (BEAKER) (test srdr=729) 22 mmol/L 21-29 BASE EXCESS ARTERIAL (BEAKER) (test lnzb=825) -1.3 mmol/L -2.0-3.0 PATIENT TEMPERATURE (BEAKER) (test jqps=4454) 38.3 C FIO2 (BEAKER) (test xywl=7710) 40.0 % [id number] 06:59:00 Test Item Value Reference Range Comments PHOSPHORUS (BEAKER) (test hwrz=172) 3.4 mg/dL 2.3-4.7 [id number] 06:59:00 Test Item Value Reference Range Comments MAGNESIUM (BEAKER) (test lnct=706) 2.0 mg/dL 1.6-2.6 BASIC METABOLIC [id number] 06:59:00 Test Item Value Reference Range Comments SODIUM (BEAKER) (test 147 meq/L 136-145 rglh=637) POTASSIUM (BEAKER) (test 3.7 meq/L 3.5-5.1 lwxw=267) CHLORIDE (BEAKER) (test 111 meq/L 98-107 pfai=030) CO2 (BEAKER) (test 23 meq/L 22-29 kkke=429) BLOOD UREA NITROGEN 24 mg/dL 7-21 (BEAKER) (test gtqi=782) CREATININE (BEAKER) (test 1.57 mg/dL 0.57-1.25 sice=937) GLUCOSE RANDOM (BEAKER) 121 mg/dL 70-105 (test bwvg=437) CALCIUM (BEAKER) (test 9.0 mg/dL 8.4-10.2 qctv=779) EGFR (BEAKER) (test 39 mL/min/1.73 sq m ESTIMATED GFR IS NOT iefw=5324) ACCURATE CREATININE CLEARANCE IN PREDICTING GLOMERULAR FILTRATION RATE. ESTIMATED GFR IS NOT APPLICABLE FOR DIALYSIS PATIENTS. POCT-GLUCOSE [id number] 06:27:00 Test Item Value Reference Range Comments POC-GLUCOSE METER (BEAKER) 95 mg/dL 70-110 TESTED AT [facility] [address] [facility] (test kekz=3908) [facility] [address] POCT-GLUCOSE [id number] 06:04:00 Test Item Value Reference Range Comments POC-GLUCOSE METER (BEAKER) 128 mg/dL 70-110 TESTED AT [address] (test jfhc=4228) [facility] [address] [id number] 05:36:00 Test Item Value Reference Range Comments PHOSPHORUS (BEAKER) (test ekdj=985) 3.4 mg/dL 2.3-4.7 BASIC METABOLIC [id number] 05:36:00 Test Item Value Reference Range Comments SODIUM (BEAKER) (test 146 meq/L 136-145 dvvg=944) POTASSIUM (BEAKER) (test 3.6 meq/L 3.5-5.1 nuho=982) CHLORIDE (BEAKER) (test 110 meq/L 98-107 oqmk=558) CO2 (BEAKER) (test 25 meq/L 22-29 qold=854) BLOOD UREA NITROGEN 25 mg/dL 7-21 (BEAKER) (test jnde=621) CREATININE (BEAKER) (test 1.58 mg/dL 0.57-1.25 tjra=523) GLUCOSE RANDOM (BEAKER) 114 mg/dL 70-105 (test ymhf=046) CALCIUM (BEAKER) (test 8.9 mg/dL 8.4-10.2 jiip=498) EGFR (BEAKER) (test 39 mL/min/1.73 sq m ESTIMATED GFR IS NOT zihw=0801) ACCURATE CREATININE CLEARANCE IN PREDICTING GLOMERULAR FILTRATION RATE. ESTIMATED GFR IS NOT APPLICABLE FOR DIALYSIS PATIENTS. HEPATIC FUNCTION [id number] 05:36:00 Test Item Value Reference Range Comments TOTAL PROTEIN (BEAKER) (test ycag=926) 6.3 gm/dL 6.0-8.3 ALBUMIN (BEAKER) (test wxlf=5311) 3.1 g/dL 3.5-5.0 BILIRUBIN TOTAL (BEAKER) (test hrxy=550) 1.1 mg/dL 0.2-1.2 BILIRUBIN DIRECT (BEAKER) (test jepm=190) 0.7 mg/dL 0.1-0.5 ALKALINE PHOSPHATASE (BEAKER) (test hezr=090) 54 U/L 40-150 AST (SGOT) (BEAKER) (test rqrr=848) 23 U/L 5-34 ALT (SGPT) (BEAKER) (test wlmx=600) 17 U/L 6-55 LACTATE DEHYDROGENASE (LDH)2017-07-25 05:36:00 Test Item Value Reference Range Comments LACTATE DEHYDROGENASE (BEAKER) (test ctxm=040) 695 U/L 125-220 POCT-GLUCOSE [id number] 05:24:00 Test Item Value Reference Range Comments POC-GLUCOSE METER (BEAKER) 102 mg/dL 70-110 TESTED AT [address] (test jyoc=5548) [facility] [address] RAD, CHEST, 1 VIEW, NON [id number] 04:43:00Reason for exam:-> impellaShould this be performed at the bedside?->YesFINAL REPORT Chest one view. Clinical history: impella Comparison: Chest radiograph 07/24/17 Technique: A single frontal view of the chest was obtained. Findings: Cardiomediastinal contours are unchanged. Endotracheal and feeding tubes as well as a right IJ [place]-Jagdeep catheter are unchanged in position. There are patchy bibasilar opacities which may represent atelectasis and/or pneumonia. There is mild elevation of the left hemidiaphragm. There is no definite pleural effusionor pneumothorax. Signed: Alexia Ramirez MDReport Verified Date/Time: 07/25/2017 04:43:27 ReadingLocation: [facility] B1 C013T Transitional Reading Room [id number] 00:51:00 Test Item Value Reference Range Comments PHOSPHORUS (BEAKER) (test drws=007) 3.4 mg/dL 2.3-4.7 BASIC METABOLIC [id number] 00:51:00 Test Item Value Reference Range Comments SODIUM (BEAKER) (test 146 meq/L 136-145 jnvs=981) POTASSIUM (BEAKER) (test 4.0 meq/L 3.5-5.1 kpgc=680) CHLORIDE (BEAKER) (test 110 meq/L 98-107 latk=761) CO2 (BEAKER) (test 26 meq/L 22-29 rdgv=006) BLOOD UREA NITROGEN 26 mg/dL 7-21 (BEAKER) (test pvqu=658) CREATININE (BEAKER) (test 1.53 mg/dL 0.57-1.25 lnjr=491) GLUCOSE RANDOM (BEAKER) 105 mg/dL 70-105 (test tqnm=985) CALCIUM (BEAKER) (test 8.8 mg/dL 8.4-10.2 uwrw=723) EGFR (BEAKER) (test 41 mL/min/1.73 sq m ESTIMATED GFR IS NOT dovv=2275) ACCURATE CREATININE CLEARANCE IN PREDICTING GLOMERULAR FILTRATION RATE. ESTIMATED GFR IS NOT APPLICABLE FOR DIALYSIS PATIENTS. POCT-GLUCOSE [id number] 00:32:00 Test Item Value Reference Range Comments POC-GLUCOSE METER (BEAKER) 119 mg/dL 70-110 TESTED AT [address] (test recj=1633) [place] [id number] POCT-GLUCOSE [id number] 00:27:00 Test Item Value Reference Range Comments POC-GLUCOSE METER (BEAKER) 114 mg/dL 70-110 TESTED AT [address] (test ixlq=8642) [place] [id number] POCT-GLUCOSE [id number] 23:58:00 Test Item Value Reference Range Comments POC-GLUCOSE METER (BEAKER) 117 mg/dL 70-110 TESTED AT [address] (test tpfl=1507) [place] [address] [id number] 21:24:00 Test Item Value Reference Range Comments MAGNESIUM (BEAKER) (test dthx=757) 2.0 mg/dL 1.6-2.6 POCT-GLUCOSE [id number] 20:24:00 Test Item Value Reference Range Comments POC-GLUCOSE METER (BEAKER) 130 mg/dL 70-110 TESTED AT [facility] [address] (test skkd=8291) [place] [address] [id number] 19:20:00 Test Item Value Reference Range Comments POTASSIUM (BEAKER) (test cdwo=715) 3.6 meq/L 3.5-5.1 [id number] 19:20:00 Test Item Value Reference Range Comments GLUCOSE RANDOM (BEAKER) (test qcnj=758) 168 mg/dL 70-105 [id number] 18:01:00 Test Item Value Reference Range Comments PHOSPHORUS (BEAKER) (test mxmr=459) 3.7 mg/dL 2.3-4.7 BASIC METABOLIC [id number] 18:01:00 Test Item Value Reference Range Comments SODIUM (BEAKER) (test 145 meq/L 136-145 sthw=647) POTASSIUM (BEAKER) (test 3.9 meq/L 3.5-5.1 hsoz=821) CHLORIDE (BEAKER) (test 109 meq/L 98-107 qjgo=995) CO2 (BEAKER) (test 27 meq/L 22-29 tfim=112) BLOOD UREA NITROGEN 26 mg/dL 7-21 (BEAKER) (test jpkz=206) CREATININE (BEAKER) (test 1.47 mg/dL 0.57-1.25 ajcl=217) GLUCOSE RANDOM (BEAKER) 210 mg/dL 70-105 (test roka=918) CALCIUM (BEAKER) (test 8.5 mg/dL 8.4-10.2 ibwr=608) EGFR (BEAKER) (test 43 mL/min/1.73 sq m ESTIMATED GFR IS NOT udrk=7007) ACCURATE CREATININE CLEARANCE IN PREDICTING GLOMERULAR FILTRATION RATE. ESTIMATED GFR IS NOT APPLICABLE FOR DIALYSIS PATIENTS. GLUCOSE-STAT [id number] 17:14:00 Test Item Value Reference Range Comments GLUCOSE RANDOM (BEAKER) (test hsgn=159) 208 mg/dL 70-110 BLOOD GAS, [id number] 17:13:00 Test Item Value Reference Range Comments PH ARTERIAL (BEAKER) (test dymn=073) 7.44 7.35-7.45 PCO2 ARTERIAL (BEAKER) (test aqog=689) 43 mmHg 35-45 PO2 ARTERIAL (BEAKER) (test zhsj=356) 58 mmHg 80-90 O2 SATURATION ARTERIAL (BEAKER) (test rdef=375) 90.8 % 96.0-97.0 HCO3 ARTERIAL (BEAKER) (test ajvd=426) 28 mmol/L 21-29 BASE EXCESS ARTERIAL (BEAKER) (test tatj=529) 3.9 mmol/L -2.0-3.0 PATIENT TEMPERATURE (BEAKER) (test wzeq=8299) 37.0 C FIO2 (BEAKER) (test dnsz=9645) 100.0 % RAD, CHEST, 1 VIEW, NON [id number] 14:00:00Reason for exam:->post intubationShould this be performed at the bedside?->YesFINAL REPORT AP chest. HISTORY: Endotracheal tube COMPARISON: 07/24/2017 IMPRESSION:Endotracheal tube projects deep in the trachea, approximately 1-2 cm above the level of the toro. Cardiomegaly similar to previous. Worsening aeration at the left lung base. Mild pulmonary vascular congestion. No pneumothorax. Signed: Mitchel Canela MDReport Verified Date/Time: 07/24/2017 14:00:17 Reading Location: [facility] C013Y CT Body Reading Room [id number] 13:40:00 Test Item Value Reference Range Comments PHOSPHORUS (BEAKER) (test qokb=713) 4.3 mg/dL 2.3-4.7 [id number] 13:40:00 Test Item Value Reference Range Comments MAGNESIUM (BEAKER) (test csyl=423) 2.0 mg/dL 1.6-2.6 BASIC METABOLIC [id number] 13:40:00 Test Item Value Reference Range Comments SODIUM (BEAKER) (test 145 meq/L 136-145 qbxt=791) POTASSIUM (BEAKER) (test 3.9 meq/L 3.5-5.1 ktkg=862) CHLORIDE (BEAKER) (test 108 meq/L 98-107 xtfu=215) CO2 (BEAKER) (test 24 meq/L 22-29 oluc=656) BLOOD UREA NITROGEN 28 mg/dL 7-21 (BEAKER) (test yedn=333) CREATININE (BEAKER) (test 1.43 mg/dL 0.57-1.25 flig=334) GLUCOSE RANDOM (BEAKER) 206 mg/dL 70-105 (test ucku=660) CALCIUM (BEAKER) (test 8.5 mg/dL 8.4-10.2 jjpr=715) EGFR (BEAKER) (test 44 mL/min/1.73 sq m ESTIMATED GFR IS NOT mvsl=1353) ACCURATE CREATININE CLEARANCE IN PREDICTING GLOMERULAR FILTRATION RATE. ESTIMATED GFR IS NOT APPLICABLE FOR DIALYSIS PATIENTS. LACTIC ACID, ARTERIAL, WHOLE [id number] 13:36:00 Test Item Value Reference Range Comments LACTATE BLOOD ARTERIAL (2) (BEAKER) (test 0.7 mmol/L 0.5-2.2 kuue=7651) Effective 08/06/2015: Units/Reference Range ChangeNew: 0.5-2.2 mmol/L Previous: 5 -20 mg/dLCBC W/PLT COUNT & AUTO [id number] 13:24:00 Test Item Value Reference Range Comments WHITE BLOOD CELL COUNT (BEAKER) (test lsio=356) 10.5 K/ L 3.5-10.5 RED BLOOD CELL COUNT (BEAKER) (test zvqh=061) 2.70 M/ L 3.93-5.22 HEMOGLOBIN (BEAKER) (test vqlk=916) 8.1 GM/DL 11.2-15.7 HEMATOCRIT (BEAKER) (test bwmy=389) 27.0 % 34.1-44.9 MEAN CORPUSCULAR VOLUME (BEAKER) (test ojqx=980) 100.0 fL 79.4-94.8 MEAN CORPUSCULAR HEMOGLOBIN (BEAKER) (test 30.0 pg 25.6-32.2 uwxa=354) MEAN CORPUSCULAR HEMOGLOBIN CONC (BEAKER) (test 30.0 GM/DL 32.2-35.5 dxov=205) RED CELL DISTRIBUTION WIDTH (BEAKER) (test 14.9 % 11.7-14.4 ahqb=622) PLATELET COUNT (BEAKER) (test acdb=937) 117 K/CU MM 150-450 MEAN PLATELET VOLUME (BEAKER) (test wcrk=702) 10.9 fL 9.4-12.3 NUCLEATED RED BLOOD CELLS (BEAKER) (test 0 /100 WBC 0-0 aapv=189) NEUTROPHILS RELATIVE PERCENT (BEAKER) (test 78 % ofwp=946) LYMPHOCYTES RELATIVE PERCENT (BEAKER) (test 10 % xzmy=446) MONOCYTES RELATIVE PERCENT (BEAKER) (test 10 % jqqo=482) EOSINOPHILS RELATIVE PERCENT (BEAKER) (test 1 % ijlu=203) BASOPHILS RELATIVE PERCENT (BEAKER) (test 0 % iocj=401) NEUTROPHILS ABSOLUTE COUNT (BEAKER) (test 8.20 K/ L 1.56-6.13 dznk=382) LYMPHOCYTES ABSOLUTE COUNT (BEAKER) (test 1.00 K/ L 1.18-3.74 hdrl=120) MONOCYTES ABSOLUTE COUNT (BEAKER) (test 1.06 K/ L 0.24-0.36 izmh=700) EOSINOPHILS ABSOLUTE COUNT (BEAKER) (test 0.09 K/ L 0.04-0.36 najf=845) BASOPHILS ABSOLUTE COUNT (BEAKER) (test 0.04 K/ L 0.01-0.08 binl=600) IMMATURE GRANULOCYTES-RELATIVE PERCENT (BEAKER) 1 % 0-1 (test wrtn=4472) OXYGEN SATURATION, [id number] 13:08:00 Test Item Value Reference Range Comments O2 SATURATION (MEASURED) (BEAKER) (test kojm=5884) 65.1 % PA catheter tipBLOOD GAS, [id number] 13:08:00 Test Item Value Reference Range Comments PH ARTERIAL (BEAKER) (test ccvx=996) 7.42 7.35-7.45 PCO2 ARTERIAL (BEAKER) (test fusr=491) 42 mmHg 35-45 PO2 ARTERIAL (BEAKER) (test ambm=765) 239 mmHg 80-90 O2 SATURATION ARTERIAL (BEAKER) (test ywci=090) 99.6 % 96.0-97.0 HCO3 ARTERIAL (BEAKER) (test scal=544) 27 mmol/L 21-29 BASE EXCESS ARTERIAL (BEAKER) (test pmqp=754) 2.1 mmol/L -2.0-3.0 PATIENT TEMPERATURE (BEAKER) (test hran=5648) 36.6 C FIO2 (BEAKER) (test jdjb=5094) 100.0 % GLUCOSE-STAT [id number] 13:08:00 Test Item Value Reference Range Comments GLUCOSE RANDOM (BEAKER) (test cnvy=869) 194 mg/dL 70-110 HGB/HCT (H&H) - STAT [id number] 13:08:00 Test Item Value Reference Range Comments HEMOGLOBIN (BEAKER) (test vkkx=426) 8.8 g/dL 12.0-15.0 HEMATOCRIT (BEAKER) (test sfnp=187) 26.0 % 36.0-45.0 CALCIUM, [id number] 13:08:00 Test Item Value Reference Range Comments CALCIUM IONIZED (BEAKER) (test zwte=730) 1.08 mmol/L 1.12-1.27 PH, BLOOD (BEAKER) (test xcek=0410) 7.41 SODIUM NA-STAT [id number] 13:07:00 Test Item Value Reference Range Comments SODIUM (BEAKER) (test riac=517) 140 meq/L 135-148 POTASSIUM-STAT [id number] 13:07:00 Test Item Value Reference Range Comments POTASSIUM (BEAKER) (test rtay=091) 3.7 meq/L 3.6-5.5 SODIUM NA-STAT [id number] 11:39:00 Test Item Value Reference Range Comments SODIUM (BEAKER) (test eweu=784) 141 meq/L 135-148 POTASSIUM-STAT [id number] 11:39:00 Test Item Value Reference Range Comments POTASSIUM (BEAKER) (test lond=457) 3.6 meq/L 3.6-5.5 BLOOD GAS, [id number] 11:39:00 Test Item Value Reference Range Comments PH ARTERIAL (BEAKER) (test luof=592) 7.44 7.35-7.45 PCO2 ARTERIAL (BEAKER) (test imkr=618) 42 mmHg 35-45 PO2 ARTERIAL (BEAKER) (test qrre=080) 234 mmHg 80-90 O2 SATURATION ARTERIAL (BEAKER) (test tyrz=151) 99.6 % 96.0-97.0 HCO3 ARTERIAL (BEAKER) (test pdxp=122) 28 mmol/L 21-29 BASE EXCESS ARTERIAL (BEAKER) (test rzxf=110) 3.4 mmol/L -2.0-3.0 PATIENT TEMPERATURE (BEAKER) (test fsqo=4765) 36.8 C FIO2 (BEAKER) (test ldgv=2101) 86.0 % GLUCOSE-STAT [id number] 11:39:00 Test Item Value Reference Range Comments GLUCOSE RANDOM (BEAKER) (test dzmi=416) 194 mg/dL 70-110 HGB/HCT (H&H) - STAT [id number] 11:39:00 Test Item Value Reference Range Comments HEMOGLOBIN (BEAKER) (test luzg=686) 8.8 g/dL 12.0-15.0 HEMATOCRIT (BEAKER) (test xncx=735) 26.0 % 36.0-45.0 CALCIUM, [id number] 11:39:00 Test Item Value Reference Range Comments CALCIUM IONIZED (BEAKER) (test eyfh=232) 1.06 mmol/L 1.12-1.27 PH, BLOOD (BEAKER) (test vyet=9261) 7.44 BLOOD GAS, [id number] 10:56:00 Test Item Value Reference Range Comments PH ARTERIAL (BEAKER) (test aile=880) 7.43 7.35-7.45 PCO2 ARTERIAL (BEAKER) (test kaed=516) 46 mmHg 35-45 PO2 ARTERIAL (BEAKER) (test mnis=203) 223 mmHg 80-90 O2 SATURATION ARTERIAL (BEAKER) (test wsyi=940) 99.5 % 96.0-97.0 HCO3 ARTERIAL (BEAKER) (test tejx=321) 30 mmol/L 21-29 BASE EXCESS ARTERIAL (BEAKER) (test hlev=601) 4.6 mmol/L -2.0-3.0 PATIENT TEMPERATURE (BEAKER) (test gwdk=8063) 37.0 C FIO2 (BEAKER) (test ghdz=5510) 100.0 % GLUCOSE-STAT [id number] 10:56:00 Test Item Value Reference Range Comments GLUCOSE RANDOM (BEAKER) (test bpaf=046) 190 mg/dL 70-110 HGB/HCT (H&H) - STAT [id number] 10:56:00 Test Item Value Reference Range Comments HEMOGLOBIN (BEAKER) (test pzky=271) 8.7 g/dL 12.0-15.0 HEMATOCRIT (BEAKER) (test fnij=206) 26.0 % 36.0-45.0 SODIUM NA-STAT [id number] 10:55:00 Test Item Value Reference Range Comments SODIUM (BEAKER) (test ysri=047) 142 meq/L 135-148 POTASSIUM-STAT [id number] 10:55:00 Test Item Value Reference Range Comments POTASSIUM (BEAKER) (test lwva=782) 3.5 meq/L 3.6-5.5 [id number] 08:41:00 Test Item Value Reference Range Comments MAGNESIUM (BEAKER) (test pwlu=597) 2.0 mg/dL 1.6-2.6 BLOOD GAS, [id number] 07:57:00 Test Item Value Reference Range Comments PH ARTERIAL (BEAKER) (test nvvm=831) 7.48 7.35-7.45 PCO2 ARTERIAL (BEAKER) (test kgwz=791) 37 mmHg 35-45 PO2 ARTERIAL (BEAKER) (test ioys=353) 71 mmHg 80-90 O2 SATURATION ARTERIAL (BEAKER) (test fymr=608) 94.8 % 96.0-97.0 HCO3 ARTERIAL (BEAKER) (test aiaw=824) 27 mmol/L 21-29 BASE EXCESS ARTERIAL (BEAKER) (test rady=187) 3.5 mmol/L -2.0-3.0 PATIENT TEMPERATURE (BEAKER) (test hdlk=7430) 37.8 C FIO2 (BEAKER) (test ddgl=0089) 32.0 % POCT-GLUCOSE [id number] 07:50:00 Test Item Value Reference Range Comments POC-GLUCOSE METER (BEAKER) 246 mg/dL 70-110 TESTED AT [address] (test jmsw=2349) [facility] [address] RAD, CHEST, 1 VIEW, NON [id number] 04:54:00Reason for exam:-> impellaShould this be performed at the bedside?->YesFINAL REPORT CLINICAL INDICATION: Support lines. Comparison: 07/23/2017 The cardiomediastinal contours are stable. Central pulmonary vascular prominence and bilateral parenchymalopacities are similar to previous. There is no pneumothorax. Support lines are stable. Signed: Adelso Sorensen Verified Date/Time: 07/24/2017 04:54:08 Reading Location: [address] Reading Room POCT-GLUCOSE [id number] 04:08:00 Test Item Value Reference Range Comments POC-GLUCOSE METER (BEAKER) 137 mg/dL 70-110 TESTED AT [facility] [address] (test xipy=7641) [facility] [address] [id number] 03:02:00 Test Item Value Reference Range Comments PHOSPHORUS (BEAKER) (test mdls=002) 3.7 mg/dL 2.3-4.7 [id number] 03:02:00 Test Item Value Reference Range Comments MAGNESIUM (BEAKER) (test kpsb=264) 2.3 mg/dL 1.6-2.6 BASIC METABOLIC [id number] 03:02:00 Test Item Value Reference Range Comments SODIUM (BEAKER) (test 145 meq/L 136-145 vnec=143) POTASSIUM (BEAKER) (test 4.0 meq/L 3.5-5.1 mdmf=769) CHLORIDE (BEAKER) (test 106 meq/L 98-107 funj=087) CO2 (BEAKER) (test 26 meq/L 22-29 kmji=220) BLOOD UREA NITROGEN 26 mg/dL 7-21 (BEAKER) (test iwlk=100) CREATININE (BEAKER) (test 1.47 mg/dL 0.57-1.25 fqqn=306) GLUCOSE RANDOM (BEAKER) 141 mg/dL 70-105 (test fjdo=923) CALCIUM (BEAKER) (test 9.0 mg/dL 8.4-10.2 bcpb=218) EGFR (BEAKER) (test 43 mL/min/1.73 sq m ESTIMATED GFR IS NOT ljhm=8452) ACCURATE CREATININE CLEARANCE IN PREDICTING GLOMERULAR FILTRATION RATE. ESTIMATED GFR IS NOT APPLICABLE FOR DIALYSIS PATIENTS. HEPATIC FUNCTION [id number] 03:02:00 Test Item Value Reference Range Comments TOTAL PROTEIN (BEAKER) (test exkd=432) 6.6 gm/dL 6.0-8.3 ALBUMIN (BEAKER) (test eekr=8270) 3.2 g/dL 3.5-5.0 BILIRUBIN TOTAL (BEAKER) (test ibnu=631) 1.2 mg/dL 0.2-1.2 BILIRUBIN DIRECT (BEAKER) (test luhd=312) 0.6 mg/dL 0.1-0.5 ALKALINE PHOSPHATASE (BEAKER) (test vmxa=138) 55 U/L 40-150 AST (SGOT) (BEAKER) (test pdmr=054) 33 U/L 5-34 ALT (SGPT) (BEAKER) (test dnhp=302) 25 U/L 6-55 LACTATE DEHYDROGENASE (LDH)2017-07-24 03:02:00 Test Item Value Reference Range Comments LACTATE DEHYDROGENASE (BEAKER) (test ichd=921) 879 U/L 125-220 CBC W/PLT COUNT & AUTO [id number] 02:53:00 Test Item Value Reference Range Comments WHITE BLOOD CELL COUNT (BEAKER) (test whjv=899) 12.6 K/ L 3.5-10.5 RED BLOOD CELL COUNT (BEAKER) (test wmej=577) 2.93 M/ L 3.93-5.22 HEMOGLOBIN (BEAKER) (test gcpz=584) 8.7 GM/DL 11.2-15.7 HEMATOCRIT (BEAKER) (test xies=950) 28.3 % 34.1-44.9 MEAN CORPUSCULAR VOLUME (BEAKER) (test kkif=733) 96.6 fL 79.4-94.8 MEAN CORPUSCULAR HEMOGLOBIN (BEAKER) (test 29.7 pg 25.6-32.2 uxyr=719) MEAN CORPUSCULAR HEMOGLOBIN CONC (BEAKER) (test 30.7 GM/DL 32.2-35.5 sufx=111) RED CELL DISTRIBUTION WIDTH (BEAKER) (test 14.7 % 11.7-14.4 zxqy=060) PLATELET COUNT (BEAKER) (test qlsv=612) 126 K/CU MM 150-450 MEAN PLATELET VOLUME (BEAKER) (test lrig=270) 11.0 fL 9.4-12.3 NUCLEATED RED BLOOD CELLS (BEAKER) (test 0 /100 WBC 0-0 ffef=830) NEUTROPHILS RELATIVE PERCENT (BEAKER) (test 78 % vzuz=089) LYMPHOCYTES RELATIVE PERCENT (BEAKER) (test 10 % sygw=841) MONOCYTES RELATIVE PERCENT (BEAKER) (test 10 % yqrx=653) EOSINOPHILS RELATIVE PERCENT (BEAKER) (test 1 % dssb=086) BASOPHILS RELATIVE PERCENT (BEAKER) (test 0 % fnzq=112) NEUTROPHILS ABSOLUTE COUNT (BEAKER) (test 9.85 K/ L 1.56-6.13 zosd=043) LYMPHOCYTES ABSOLUTE COUNT (BEAKER) (test 1.27 K/ L 1.18-3.74 tjot=880) MONOCYTES ABSOLUTE COUNT (BEAKER) (test 1.25 K/ L 0.24-0.36 ncua=220) EOSINOPHILS ABSOLUTE COUNT (BEAKER) (test 0.10 K/ L 0.04-0.36 mcqx=183) BASOPHILS ABSOLUTE COUNT (BEAKER) (test 0.05 K/ L 0.01-0.08 vwfi=175) IMMATURE GRANULOCYTES-RELATIVE PERCENT (BEAKER) 1 % 0-1 (test anql=9219) [id number] 02:50:00 Test Item Value Reference Range Comments PROTIME (BEAKER) (test vdix=771) 16.7 seconds 11.7-14.7 INR (BEAKER) (test qmeb=933) 1.4 <=5.9 PARTIAL THROMBOPLASTIN TIME (BEAKER) (test 78.5 seconds 22.5-36.0 hkks=901) RECOMMENDED COUMADIN/WARFARIN INR THERAPY RANGESSTANDARD DOSE: 2.0 - 3.0 Includes: PROPHYLAXIS forvenous thrombosis, systemic embolization; TREATMENT for venous thrombosis and/or pulmonary embolus.HIGH RISK: Target INR is 2.5-3.5 for patients with mechanical heart valves.BLOOD [id number] 00:00:00 Test Item Value Reference Range Comments CULTURE (BEAKER) (test wakt=3669) No growth in 5 days BLOOD [id number] 00:00:00 Test Item Value Reference Range Comments CULTURE (BEAKER) (test sidb=3122) No growth in 5 days [id number] 22:01:00 Test Item Value Reference Range Comments MAGNESIUM (BEAKER) (test afcq=220) 2.0 mg/dL 1.6-2.6 POCT-GLUCOSE [id number] 19:39:00 Test Item Value Reference Range Comments POC-GLUCOSE METER (BEAKER) 135 mg/dL 70-110 TESTED AT [facility] [address] [facility] (test qers=2985) [facility] [address] BASIC METABOLIC [id number] 19:08:00 Test Item Value Reference Range Comments SODIUM (BEAKER) (test 145 meq/L 136-145 jqdl=161) POTASSIUM (BEAKER) (test 3.9 meq/L 3.5-5.1 kukd=149) CHLORIDE (BEAKER) (test 106 meq/L 98-107 znqs=568) CO2 (BEAKER) (test 28 meq/L 22-29 ffmb=928) BLOOD UREA NITROGEN 26 mg/dL 7-21 (BEAKER) (test wfbj=306) CREATININE (BEAKER) (test 1.45 mg/dL 0.57-1.25 ftsg=472) GLUCOSE RANDOM (BEAKER) 119 mg/dL 70-105 (test yhxa=250) CALCIUM (BEAKER) (test 9.2 mg/dL 8.4-10.2 fpck=327) EGFR (BEAKER) (test 43 mL/min/1.73 sq m ESTIMATED GFR IS NOT wvjm=2847) ACCURATE CREATININE CLEARANCE IN PREDICTING GLOMERULAR FILTRATION RATE. ESTIMATED GFR IS NOT APPLICABLE FOR DIALYSIS PATIENTS. [id number] 19:06:00 Test Item Value Reference Range Comments PHOSPHORUS (BEAKER) (test bdmj=815) 3.7 mg/dL 2.3-4.7 VANCOMYCIN LEVEL, [id number] 16:33:00 Test Item Value Reference Range Comments VANCOMYCIN TROUGH (BEAKER) (test dqmh=669) 17.8 ug/mL 10.0-20.0 If vancomycin trough level > 20 mcg/mL, hold next vancomycin dose, and contact MD and pharmacist.VARICELLA ZOSTER ANTIBODY, [id number] 14:47:00 Test Item Value Reference Range Comments VARICELLA ZOSTER IGG (AL) (BEAKER) (test kebj=2692) 2.3 Al VARICELLA ZOSTER RESULT INTERPRETATIONS: <=0.8 Al Nonreactive: Presumed non-immune to VZV 0.9-1.0 Al Equivocal >=1.1 Al Reactive: Presumed immune to VZVCYTOMEGALOVIRUS ANTIBODY, [id number] 14:46:00 Test Item Value Reference Range Comments CYTOMEGALOVIRUS IGG ANTIBODY (BEAKER) (test Negative caln=044) CYTOMEGALOVIRUS ANTIBODY, [id number] 14:46:00 Test Item Value Reference Range Comments CYTOMEGALOVIRUS IGM ANTIBODY (BEAKER) (test Negative sikg=375) EBV-VCA ANTIBODY, [id number] 14:46:00 Test Item Value Reference Range Comments MARIO-CARMEN VCA IGG (BEAKER) (test exft=067) Positive EBV-VCA ANTIBODY, [id number] 14:46:00 Test Item Value Reference Range Comments MARIO-CARMEN VCA IGM (BEAKER) (test jnnt=970) Negative HERPES VIRUS ANTIBODY, [id number] 14:45:00 Test Item Value Reference Range Comments HERPES VIRUS IGG (BEAKER) (test mxdc=5553) Negative HSV IgG 1=NEGATIVEHSV IgG 2=NEGATIVETOXOPLASMA GONDII ANTIBODY, [id number] 14 :45:00 Test Item Value Reference Range Comments TOXOPLASMA GONDII IGG (BEAKER) (test rxrq=788) Negative [id number] 14:37:00 Test Item Value Reference Range Comments PARTIAL THROMBOPLASTIN TIME (BEAKER) (test 69.5 seconds 22.5-36.0 krex=414) OCCULT BLOOD, [id number] 14:34:00 Test Item Value Reference Range Comments FECAL OCCULT BLOOD (BEAKER) (test jhhv=898) Negative Negative POCT-GLUCOSE [id number] 14:20:00 Test Item Value Reference Range Comments POC-GLUCOSE METER (BEAKER) 166 mg/dL 70-110 TESTED AT [address] (test kizd=6874) [facility] [address] POCT-GLUCOSE [id number] 14:20:00 Test Item Value Reference Range Comments POC-GLUCOSE METER (BEAKER) 82 mg/dL 70-110 TESTED AT [address] (test sbdm=7687) [facility] [address] [id number] 13:00:00 Test Item Value Reference Range Comments PHOSPHORUS (BEAKER) (test hvrw=232) 3.2 mg/dL 2.3-4.7 BASIC METABOLIC [id number] 13:00:00 Test Item Value Reference Range Comments SODIUM (BEAKER) (test 143 meq/L 136-145 aprl=314) POTASSIUM (BEAKER) (test 3.8 meq/L 3.5-5.1 tkvu=443) CHLORIDE (BEAKER) (test 104 meq/L 98-107 efvj=054) CO2 (BEAKER) (test 29 meq/L 22-29 klpj=882) BLOOD UREA NITROGEN 28 mg/dL 7-21 (BEAKER) (test qiwd=685) CREATININE (BEAKER) (test 1.44 mg/dL 0.57-1.25 ddgh=439) GLUCOSE RANDOM (BEAKER) 171 mg/dL 70-105 (test dmai=983) CALCIUM (BEAKER) (test 9.1 mg/dL 8.4-10.2 hkjz=257) EGFR (BEAKER) (test 44 mL/min/1.73 sq m ESTIMATED GFR IS NOT nbnm=7450) ACCURATE CREATININE CLEARANCE IN PREDICTING GLOMERULAR FILTRATION RATE. ESTIMATED GFR IS NOT APPLICABLE FOR DIALYSIS PATIENTS. POCT-GLUCOSE [id number] 12:29:00 Test Item Value Reference Range Comments POC-GLUCOSE METER (BEAKER) 179 mg/dL 70-110 TESTED AT [address] (test hzsj=0501) [facility] [address] CREATININE [id number] 11:15:00 Test Item Value Reference Range Comments CREATININE CLEARANCE (BEAKER) 45.8 mL/min 70.0-140.0 (test srtv=082) VOLUME, TOTAL (BEAKER) (test 3400 ml jhbj=7106) CREATININE URINE (BEAKER) (test 36.8 mg/dL xypi=187) [id number] (BEAKER) Анна Encarnacion MD (test yolu=0255) (electronic signature) PATIENT HEIGHT (CM) (BEAKER) 165.1 cm (test ngtw=6260) PATIENT WEIGHT (KG) (BEAKER) 84.100 kg (test fedf=0862) [id number] 09:15:00 Test Item Value Reference Range Comments POTASSIUM (BEAKER) (test sivy=847) 4.1 meq/L 3.5-5.1 PRN - repeat potassium levels every 1 hour until glucose level is less than 450 mg/[id number] 09:15:00 Test Item Value Reference Range Comments MAGNESIUM (BEAKER) (test zwtv=314) 2.4 mg/dL 1.6-2.6 PRN - repeat potassium levels every 1 hour until glucose level is less than 450 mg/dLPOCT-GLUCOSE [id number] 08:47:00 Test Item Value Reference Range Comments POC-GLUCOSE METER (BEAKER) 155 mg/dL 70-110 TESTED AT [address] (test xxkp=2643) [facility] [address] POCT-GLUCOSE [id number] 06:12:00 Test Item Value Reference Range Comments POC-GLUCOSE METER (BEAKER) 143 mg/dL 70-110 TESTED AT [address] (test wurx=1352) [facility] [address] POCT-GLUCOSE [id number] 06:12:00 Test Item Value Reference Range Comments POC-GLUCOSE METER (BEAKER) 123 mg/dL 70-110 TESTED AT [address] (test xafi=7237) [facility] [address] RAD, CHEST, 1 VIEW, NON [id number] 05:36:00Reason for exam:->respiratory insufficiencyFINAL REPORT Chest one view. Clinical history: respiratory insufficiency Comparison: Chest radiograph 07/22/2017 Technique: A single frontal view of the chest was obtained. Findings: Cardiomediastinal contours are unchanged. There is a right IJ [place]-Jagdeep catheter, with tip inthe right pulmonary artery. There is an Impella device overlying the left heart. The cardiac silhouette is enlarged. The aorta is uncoiled and atherosclerotic. There is mild diffuse interstitial prominence which may be due to chronic lung disease or interstitial edema. There is linear atelectasis/scarring in the left lung base. There is mild elevation of left hemidiaphragm. There is no pneumothorax or definite pleural effusion. There is a partially imaged endovascular stent in the mid abdomen. Signed: Alexia Ramirezeport Verified Date/Time: 07/23/2017 05:36:35 Reading Location: [address] Reading Room CALCIUM, [id number] 05:19:00 Test Item Value Reference Range Comments CALCIUM IONIZED (BEAKER) (test pkbs=662) 1.12 mmol/L 1.12-1.27 PH, BLOOD (BEAKER) (test yrsn=1014) 7.40 OXYGEN SATURATION, [id number] 05:18:00 Test Item Value Reference Range Comments O2 SATURATION (MEASURED) (BEAKER) (test licd=6960) 63.1 % POCT-GLUCOSE [id number] 05:05:00 Test Item Value Reference Range Comments POC-GLUCOSE METER (BEAKER) 131 mg/dL 70-110 [address] (test lujq=2050) [facility] [address] BLOOD GAS, [id number] 04:58:00 Test Item Value Reference Range Comments PH ARTERIAL (BEAKER) (test rwgf=134) 7.41 7.35-7.45 PCO2 ARTERIAL (BEAKER) (test tyxo=842) 51 mmHg 35-45 PO2 ARTERIAL (BEAKER) (test dhwh=970) 93 mmHg 80-90 O2 SATURATION ARTERIAL (BEAKER) (test imqn=494) 96.9 % 96.0-97.0 HCO3 ARTERIAL (BEAKER) (test lsml=987) 31 mmol/L 21-29 BASE EXCESS ARTERIAL (BEAKER) (test gkgg=612) 5.9 mmol/L -2.0-3.0 PATIENT TEMPERATURE (BEAKER) (test qktp=1985) 37.4 C FIO2 (BEAKER) (test cnjn=7944) 70.0 % [id number] 03:35:00 Test Item Value Reference Range Comments PARTIAL THROMBOPLASTIN TIME (BEAKER) (test 70.8 seconds 22.5-36.0 mmma=217) [id number] 03:34:00 Test Item Value Reference Range Comments PHOSPHORUS (BEAKER) (test jbrb=538) 3.0 mg/dL 2.3-4.7 [id number] 03:34:00 Test Item Value Reference Range Comments MAGNESIUM (BEAKER) (test mcth=413) 2.1 mg/dL 1.6-2.6 BASIC METABOLIC [id number] 03:34:00 Test Item Value Reference Range Comments SODIUM (BEAKER) (test 144 meq/L 136-145 ksit=846) POTASSIUM (BEAKER) (test 3.9 meq/L 3.5-5.1 tnce=918) CHLORIDE (BEAKER) (test 105 meq/L 98-107 clct=588) CO2 (BEAKER) (test 29 meq/L 22-29 dhik=253) BLOOD UREA NITROGEN 29 mg/dL 7-21 (BEAKER) (test krgo=139) CREATININE (BEAKER) (test 1.54 mg/dL 0.57-1.25 pjwk=825) GLUCOSE RANDOM (BEAKER) 119 mg/dL 70-105 (test sssu=458) CALCIUM (BEAKER) (test 9.1 mg/dL 8.4-10.2 glah=758) EGFR (BEAKER) (test 40 mL/min/1.73 sq m ESTIMATED GFR IS NOT fdof=8141) ACCURATE CREATININE CLEARANCE IN PREDICTING GLOMERULAR FILTRATION RATE. ESTIMATED GFR IS NOT APPLICABLE FOR DIALYSIS PATIENTS. HEPATIC FUNCTION [id number] 03:34:00 Test Item Value Reference Range Comments TOTAL PROTEIN (BEAKER) (test xnws=930) 6.7 gm/dL 6.0-8.3 ALBUMIN (BEAKER) (test jcle=0396) 3.3 g/dL 3.5-5.0 BILIRUBIN TOTAL (BEAKER) (test dyma=227) 1.2 mg/dL 0.2-1.2 BILIRUBIN DIRECT (BEAKER) (test gydg=034) 0.6 mg/dL 0.1-0.5 ALKALINE PHOSPHATASE (BEAKER) (test jknj=422) 51 U/L 40-150 AST (SGOT) (BEAKER) (test xqic=283) 48 U/L 5-34 ALT (SGPT) (BEAKER) (test tjeu=457) 29 U/L 6-55 LACTATE DEHYDROGENASE (LDH)2017-07-23 03:34:00 Test Item Value Reference Range Comments LACTATE DEHYDROGENASE (BEAKER) (test zvmq=147) 1020 U/L 125-220 CBC W/PLT COUNT & AUTO [id number] 03:25:00 Test Item Value Reference Range Comments WHITE BLOOD CELL COUNT (BEAKER) (test nzkr=184) 11.7 K/ L 3.5-10.5 RED BLOOD CELL COUNT (BEAKER) (test vlmf=637) 3.01 M/ L 3.93-5.22 HEMOGLOBIN (BEAKER) (test jdkl=847) 9.0 GM/DL 11.2-15.7 HEMATOCRIT (BEAKER) (test ocgf=972) 28.9 % 34.1-44.9 MEAN CORPUSCULAR VOLUME (BEAKER) (test ndiz=177) 96.0 fL 79.4-94.8 MEAN CORPUSCULAR HEMOGLOBIN (BEAKER) (test 29.9 pg 25.6-32.2 uqqw=755) MEAN CORPUSCULAR HEMOGLOBIN CONC (BEAKER) (test 31.1 GM/DL 32.2-35.5 slnu=640) RED CELL DISTRIBUTION WIDTH (BEAKER) (test 15.0 % 11.7-14.4 gkax=735) PLATELET COUNT (BEAKER) (test bldc=868) 128 K/CU MM 150-450 MEAN PLATELET VOLUME (BEAKER) (test cbrc=369) 11.3 fL 9.4-12.3 NUCLEATED RED BLOOD CELLS (BEAKER) (test 0 /100 WBC 0-0 wyiu=970) NEUTROPHILS RELATIVE PERCENT (BEAKER) (test 78 % gssj=389) LYMPHOCYTES RELATIVE PERCENT (BEAKER) (test 11 % rcdb=621) MONOCYTES RELATIVE PERCENT (BEAKER) (test 10 % eudj=284) EOSINOPHILS RELATIVE PERCENT (BEAKER) (test 1 % zzhe=056) BASOPHILS RELATIVE PERCENT (BEAKER) (test 0 % yyvg=521) NEUTROPHILS ABSOLUTE COUNT (BEAKER) (test 9.07 K/ L 1.56-6.13 jhrj=068) LYMPHOCYTES ABSOLUTE COUNT (BEAKER) (test 1.25 K/ L 1.18-3.74 vmjt=328) MONOCYTES ABSOLUTE COUNT (BEAKER) (test 1.12 K/ L 0.24-0.36 oohi=148) EOSINOPHILS ABSOLUTE COUNT (BEAKER) (test 0.12 K/ L 0.04-0.36 clnf=410) BASOPHILS ABSOLUTE COUNT (BEAKER) (test 0.05 K/ L 0.01-0.08 nvez=163) IMMATURE GRANULOCYTES-RELATIVE PERCENT (BEAKER) 1 % 0-1 (test iqgv=6532) POCT-GLUCOSE [id number] 03:09:00 Test Item Value Reference Range Comments POC-GLUCOSE METER (BEAKER) 114 mg/dL 70-110 TESTED AT [address] (test mvnw=7345) [place] [id number] POCT-GLUCOSE [id number] 03:09:00 Test Item Value Reference Range Comments POC-GLUCOSE METER (BEAKER) 122 mg/dL 70-110 TESTED AT [address] (test gdcl=1904) [place] [id number] BASIC METABOLIC [id number] 00:32:00 Test Item Value Reference Range Comments SODIUM (BEAKER) (test 144 meq/L 136-145 wdox=998) POTASSIUM (BEAKER) (test 4.2 meq/L 3.5-5.1 bpyh=327) CHLORIDE (BEAKER) (test 105 meq/L 98-107 vdhs=524) CO2 (BEAKER) (test 28 meq/L 22-29 pfzb=000) BLOOD UREA NITROGEN 30 mg/dL 7-21 (BEAKER) (test oxlf=196) CREATININE (BEAKER) (test 1.56 mg/dL 0.57-1.25 adlf=221) GLUCOSE RANDOM (BEAKER) 131 mg/dL 70-105 (test ngtb=484) CALCIUM (BEAKER) (test 9.0 mg/dL 8.4-10.2 rels=413) EGFR (BEAKER) (test 40 mL/min/1.73 sq m ESTIMATED GFR IS NOT qzqh=1902) ACCURATE CREATININE CLEARANCE IN PREDICTING GLOMERULAR FILTRATION RATE. ESTIMATED GFR IS NOT APPLICABLE FOR DIALYSIS PATIENTS. [id number] 00:31:00 Test Item Value Reference Range Comments PHOSPHORUS (BEAKER) (test exnm=841) 3.4 mg/dL 2.3-4.7 POCT-GLUCOSE [id number] 00:10:00 Test Item Value Reference Range Comments POC-GLUCOSE METER (BEAKER) 140 mg/dL 70-110 TESTED AT [address] (test bnus=4567) [place] [id number] POCT-GLUCOSE [id number] 00:08:00 Test Item Value Reference Range Comments POC-GLUCOSE METER (BEAKER) 121 mg/dL 70-110 TESTED AT [address] (test ngwr=0803) [place] [id number] POCT-GLUCOSE [id number] 00:08:00 Test Item Value Reference Range Comments POC-GLUCOSE METER (BEAKER) 112 mg/dL 70-110 TESTED AT [address] (test ainl=0909) [place] [id number] POCT-GLUCOSE [id number] 00:08:00 Test Item Value Reference Range Comments POC-GLUCOSE METER (BEAKER) 84 mg/dL 70-110 TESTED AT [address] (test xpdd=2821) [facility] [address] BASIC METABOLIC [id number] 20:36:00 Test Item Value Reference Range Comments SODIUM (BEAKER) (test 145 meq/L 136-145 jzxc=497) POTASSIUM (BEAKER) (test 3.6 meq/L 3.5-5.1 cept=384) CHLORIDE (BEAKER) (test 106 meq/L 98-107 wior=612) CO2 (BEAKER) (test 31 meq/L 22-29 vwog=155) BLOOD UREA NITROGEN 32 mg/dL 7-21 (BEAKER) (test gara=852) CREATININE (BEAKER) (test 1.56 mg/dL 0.57-1.25 ksdt=885) GLUCOSE RANDOM (BEAKER) 85 mg/dL 70-105 (test mgfs=982) CALCIUM (BEAKER) (test 9.0 mg/dL 8.4-10.2 nlfy=793) EGFR (BEAKER) (test 40 mL/min/1.73 sq m ESTIMATED GFR IS NOT vrxw=6907) ACCURATE CREATININE CLEARANCE IN PREDICTING GLOMERULAR FILTRATION RATE. ESTIMATED GFR IS NOT APPLICABLE FOR DIALYSIS PATIENTS. [id number] 20:36:00 Test Item Value Reference Range Comments MAGNESIUM (BEAKER) (test mowr=352) 2.4 mg/dL 1.6-2.6 [id number] 18:26:00 Test Item Value Reference Range Comments PHOSPHORUS (BEAKER) (test dxrc=363) 2.4 mg/dL 2.3-4.7 BASIC METABOLIC [id number] 18:26:00 Test Item Value Reference Range Comments SODIUM (BEAKER) (test 144 meq/L 136-145 xoax=250) POTASSIUM (BEAKER) (test 3.9 meq/L 3.5-5.1 bndq=487) CHLORIDE (BEAKER) (test 106 meq/L 98-107 siup=235) CO2 (BEAKER) (test 30 meq/L 22-29 kenj=841) BLOOD UREA NITROGEN 32 mg/dL 7-21 (BEAKER) (test vsts=416) CREATININE (BEAKER) (test 1.67 mg/dL 0.57-1.25 qbtq=680) GLUCOSE RANDOM (BEAKER) 141 mg/dL 70-105 (test agig=851) CALCIUM (BEAKER) (test 9.1 mg/dL 8.4-10.2 rfvh=090) EGFR (BEAKER) (test 37 mL/min/1.73 sq m ESTIMATED GFR IS NOT hbkd=8717) ACCURATE CREATININE CLEARANCE IN PREDICTING GLOMERULAR FILTRATION RATE. ESTIMATED GFR IS NOT APPLICABLE FOR DIALYSIS PATIENTS. LACTIC ACID, ARTERIAL, WHOLE [id number] 18:22:00 Test Item Value Reference Range Comments LACTATE BLOOD ARTERIAL (2) (BEAKER) (test 1.0 mmol/L 0.5-2.2 qood=5940) Effective 08/06/2015: Units/Reference Range ChangeNew: 0.5-2.2 mmol/L Previous: 5 -20 mg/dLPOCT-GLUCOSE [id number] 17:56:00 Test Item Value Reference Range Comments POC-GLUCOSE METER (BEAKER) 138 mg/dL 70-110 TESTED AT [address] (test qmng=8561) [place] [address] [id number] 16:19:00 Test Item Value Reference Range Comments POTASSIUM (BEAKER) (test npyv=405) 3.8 meq/L 3.5-5.1 PRN - repeat potassium levels every 1 hour until glucose level is less than 450 mg/[id number] 16:06:00 Test Item Value Reference Range Comments PARTIAL THROMBOPLASTIN TIME (BEAKER) (test 71.3 seconds 22.5-36.0 idnh=282) OXYGEN SATURATION, [id number] 15:58:00 Test Item Value Reference Range Comments O2 SATURATION (MEASURED) (AKER) (test muix=5656) 58.6 % calibrationPOCT-GLUCOSE [id number] 15:51:00 Test Item Value Reference Range Comments POC-GLUCOSE METER (BEAKER) 147 mg/dL 70-110 TESTED AT [address] (test mslr=1575) [place] [address] RAD, CHEST, 1 VIEW, NON [id number] 14:57:00Reason for exam:->s/p CVC placement Should this be performed at the bedside?->YesFINAL REPORT TECHNIQUE: Frontal chest radiograph dated 07/22/2017. CLINICAL HISTORY: CVC placement COMPARISON STUDY: Chest radiograph performed earlier the same day. IMPRESSION:There has been interval placement of a right-sided [place]- Jagdeep catheter with the tip in the main pulmonary artery. Impella device is unchanged in appearance. There is left lung base atelectasis. No pleural effusion or pneumothorax. Cardiomediastinal silhouette is normal in size. No pulmonary edema. Bonesare osteopenic. No fracture. Signed: Dawson Noel MDReport Verified Date/Time: 07/22/2017 14:57:48 Reading Location: [facility] Radiology Reading Room PROTEIN ELECTROPHORESIS, [id number] 14:45:00 Test Item Value Reference Range Comments ALBUMIN FRACTION (BEAKER) 3.0 g/dL 3.5-5.5 (test ylkf=962) ALPHA 1 FRACTION (BEAKER) 0.4 g/dL 0.2-0.4 (test kspb=735) ALPHA 2 FRACTION (BEAKER) 0.5 g/dL 0.5-0.9 (test xddz=975) BETA FRACTION (BEAKER) (test 1.0 g/dL 0.6-1.1 gebs=448) GAMMA GLOBULIN FRACTION 1.2 g/dL 0.7-1.7 (BEAKER) (test gdsf=780) INTERPRETATION-119 (BEAKER) Albumin decreased. Alpha (test llxv=5475) globulin percentages increased. This suggests an acute phase response. [id number] (BEAKER) Анна Encarnacion MD (electronic (test csaj=5921) signature) PROTEIN TOTAL SERUM, SPEP 6.1 gm/dL 6.0-8.3 (BEAKER) (test veeo=1952) POCT-GLUCOSE [id number] 14:34:00 Test Item Value Reference Range Comments POC-GLUCOSE METER (BEAKER) 137 mg/dL 70-110 TESTED AT [facility] [address] [facility] (test miwp=9723) [facility] [address] ANTI-NUCLEAR ANTIBODY (ROSLYN)2017-07-22 13:24:00 Test Item Value Reference Range Comments ANTI-NUCLEAR ANTIBODY (ROSLYN) (BEAKER) (test Positive Negative afgr=972) ROSLYN TITER AND [id number] 13:24:00 Test Item Value Reference Range Comments ROSLYN TITER (BEAKER) (test ynji=1592) :640 ROSLYN PATTERN (BEAKER) (test agam=5735) Homogeneous [id number] 12:50:00 Test Item Value Reference Range Comments PHOSPHORUS (BEAKER) (test sguf=725) 2.5 mg/dL 2.3-4.7 BASIC METABOLIC [id number] 12:50:00 Test Item Value Reference Range Comments SODIUM (BEAKER) (test 145 meq/L 136-145 ykcn=832) POTASSIUM (BEAKER) (test 3.6 meq/L 3.5-5.1 hpgq=474) CHLORIDE (BEAKER) (test 107 meq/L 98-107 ahoj=941) CO2 (BEAKER) (test 30 meq/L 22-29 cvku=748) BLOOD UREA NITROGEN 37 mg/dL 7-21 (BEAKER) (test eujb=435) CREATININE (BEAKER) (test 1.69 mg/dL 0.57-1.25 xoxt=438) GLUCOSE RANDOM (BEAKER) 154 mg/dL 70-105 (test gwbo=605) CALCIUM (BEAKER) (test 8.9 mg/dL 8.4-10.2 eiwy=233) EGFR (BEAKER) (test 36 mL/min/1.73 sq m ESTIMATED GFR IS NOT ezxa=3062) ACCURATE CREATININE CLEARANCE IN PREDICTING GLOMERULAR FILTRATION RATE. ESTIMATED GFR IS NOT APPLICABLE FOR DIALYSIS PATIENTS. BLOOD GAS, [id number] 12:36:00 Test Item Value Reference Range Comments PH ARTERIAL (BEAKER) (test rixt=575) 7.48 7.35-7.45 PCO2 ARTERIAL (BEAKER) (test madm=686) 44 mmHg 35-45 PO2 ARTERIAL (BEAKER) (test klpd=607) 156 mmHg 80-90 O2 SATURATION ARTERIAL (BEAKER) (test qkho=431) 99.1 % 96.0-97.0 HCO3 ARTERIAL (BEAKER) (test vjif=946) 32 mmol/L 21-29 BASE EXCESS ARTERIAL (BEAKER) (test jjlo=715) 7.4 mmol/L -2.0-3.0 PATIENT TEMPERATURE (BEAKER) (test axcj=0632) 37.4 C FIO2 (BEAKER) (test furm=3178) 80.0 % POCT-GLUCOSE [id number] 12:26:00 Test Item Value Reference Range Comments POC-GLUCOSE METER (BEAKER) 147 mg/dL 70-110 TESTED AT [facility] [address] [facility] (test oruy=7928) [facility] [address] URINE [id number] 11:56:00 Test Item Value Reference Range Comments CULTURE (BEAKER) (test lxxe=3072) No growth POCT-GLUCOSE [id number] 11:11:00 Test Item Value Reference Range Comments POC-GLUCOSE METER (BEAKER) 172 mg/dL 70-110 TESTED AT [address] (test iage=5418) [facility] [address] POCT-GLUCOSE [id number] 09:54:00 Test Item Value Reference Range Comments POC-GLUCOSE METER (BEAKER) 196 mg/dL 70-110 TESTED AT [address] (test uvdc=4511) [place] [address] LACTIC ACID, ARTERIAL, WHOLE [id number] 09:07:00 Test Item Value Reference Range Comments LACTATE BLOOD ARTERIAL (2) (BEAKER) (test 0.7 mmol/L 0.5-2.2 pczn=0493) Effective 08/06/2015: Units/Reference Range ChangeNew: 0.5-2.2 mmol/L Previous: 5 -20 mg/[id number] 09:06:00 Test Item Value Reference Range Comments MAGNESIUM (BEAKER) (test rxzn=537) 2.2 mg/dL 1.6-2.6 POCT-GLUCOSE [id number] 08:39:00 Test Item Value Reference Range Comments POC-GLUCOSE METER (BEAKER) 188 mg/dL 70-110 TESTED AT [address] (test cwxw=1794) [facility] [address] POCT-GLUCOSE [id number] 08:37:00 Test Item Value Reference Range Comments POC-GLUCOSE METER (BEAKER) 195 mg/dL 70-110 TESTED AT [address] (test aoff=6446) [facility] [address] BLOOD GAS, [id number] 06:46:00 Test Item Value Reference Range Comments PH ARTERIAL (BEAKER) (test pmfe=763) 7.47 7.35-7.45 PCO2 ARTERIAL (BEAKER) (test iyam=461) 44 mmHg 35-45 PO2 ARTERIAL (BEAKER) (test iiql=878) 57 mmHg 80-90 O2 SATURATION ARTERIAL (BEAKER) (test juso=993) 91.1 % 96.0-97.0 HCO3 ARTERIAL (BEAKER) (test raoy=109) 32 mmol/L 21-29 BASE EXCESS ARTERIAL (BEAKER) (test vwug=464) 7.1 mmol/L -2.0-3.0 PATIENT TEMPERATURE (BEAKER) (test qazm=4334) 37.0 C [id number] 06:14:00 Test Item Value Reference Range Comments RPR SCREEN (BEAKER) (test usjt=975) Nonreactive Nonreactive CALCIUM, [id number] 05:52:00 Test Item Value Reference Range Comments CALCIUM IONIZED (BEAKER) (test vuqw=240) 1.13 mmol/L 1.12-1.27 PH, BLOOD (BEAKER) (test ymlf=4453) 7.46 [id number] 05:42:00 Test Item Value Reference Range Comments PHOSPHORUS (BEAKER) (test sxyb=741) 2.2 mg/dL 2.3-4.7 [id number] 05:42:00 Test Item Value Reference Range Comments MAGNESIUM (BEAKER) (test otea=578) 2.1 mg/dL 1.6-2.6 HEPATIC FUNCTION [id number] 05:42:00 Test Item Value Reference Range Comments TOTAL PROTEIN (BEAKER) (test rtay=613) 6.2 gm/dL 6.0-8.3 ALBUMIN (BEAKER) (test zzpi=1874) 3.1 g/dL 3.5-5.0 BILIRUBIN TOTAL (BEAKER) (test rqvz=480) 1.4 mg/dL 0.2-1.2 BILIRUBIN DIRECT (BEAKER) (test xsrb=273) 0.7 mg/dL 0.1-0.5 ALKALINE PHOSPHATASE (BEAKER) (test gddg=036) 49 U/L 40-150 AST (SGOT) (BEAKER) (test mzai=644) 74 U/L 5-34 ALT (SGPT) (BEAKER) (test ocku=059) 37 U/L 6-55 LACTATE DEHYDROGENASE (LDH)2017-07-22 05:42:00 Test Item Value Reference Range Comments LACTATE DEHYDROGENASE (BEAKER) (test pyxn=557) 1339 U/L 125-220 [id number] 05:40:00 Test Item Value Reference Range Comments PHOSPHORUS (BEAKER) (test ljnw=026) 2.2 mg/dL 2.3-4.7 BASIC METABOLIC [id number] 05:40:00 Test Item Value Reference Range Comments SODIUM (BEAKER) (test 144 meq/L 136-145 zgoo=661) POTASSIUM (BEAKER) (test 4.0 meq/L 3.5-5.1 kana=627) CHLORIDE (BEAKER) (test 107 meq/L 98-107 crdq=027) CO2 (BEAKER) (test 28 meq/L 22-29 uvad=896) BLOOD UREA NITROGEN 36 mg/dL 7-21 (BEAKER) (test numj=921) CREATININE (BEAKER) (test 1.79 mg/dL 0.57-1.25 jlsx=634) GLUCOSE RANDOM (BEAKER) 183 mg/dL 70-105 (test uwgc=452) CALCIUM (BEAKER) (test 8.9 mg/dL 8.4-10.2 xyfg=283) EGFR (BEAKER) (test 34 mL/min/1.73 sq m ESTIMATED GFR IS NOT lqxh=8895) ACCURATE CREATININE CLEARANCE IN PREDICTING GLOMERULAR FILTRATION RATE. ESTIMATED GFR IS NOT APPLICABLE FOR DIALYSIS PATIENTS. OXYGEN SATURATION, [id number] 05:29:00 Test Item Value Reference Range Comments O2 SATURATION (MEASURED) (BEAKER) (test ntwo=2718) 54.7 % [id number] 05:29:00 Test Item Value Reference Range Comments PARTIAL THROMBOPLASTIN TIME (BEAKER) (test 70.7 seconds 22.5-36.0 whai=460) CBC W/PLT COUNT & AUTO [id number] 05:24:00 Test Item Value Reference Range Comments WHITE BLOOD CELL COUNT (BEAKER) (test euti=211) 13.0 K/ L 3.5-10.5 RED BLOOD CELL COUNT (BEAKER) (test hqsw=573) 3.04 M/ L 3.93-5.22 HEMOGLOBIN (BEAKER) (test rzqs=580) 9.0 GM/DL 11.2-15.7 HEMATOCRIT (BEAKER) (test xmyu=318) 29.0 % 34.1-44.9 MEAN CORPUSCULAR VOLUME (BEAKER) (test ivyz=416) 95.4 fL 79.4-94.8 MEAN CORPUSCULAR HEMOGLOBIN (BEAKER) (test 29.6 pg 25.6-32.2 atqd=206) MEAN CORPUSCULAR HEMOGLOBIN CONC (BEAKER) (test 31.0 GM/DL 32.2-35.5 brdk=738) RED CELL DISTRIBUTION WIDTH (BEAKER) (test 15.5 % 11.7-14.4 irkb=794) PLATELET COUNT (BEAKER) (test cnbj=527) 132 K/CU MM 150-450 MEAN PLATELET VOLUME (BEAKER) (test xvis=272) 11.4 fL 9.4-12.3 NUCLEATED RED BLOOD CELLS (BEAKER) (test 0 /100 WBC 0-0 nngz=964) NEUTROPHILS RELATIVE PERCENT (BEAKER) (test 80 % qsnw=750) LYMPHOCYTES RELATIVE PERCENT (BEAKER) (test 10 % rpcy=809) MONOCYTES RELATIVE PERCENT (BEAKER) (test 9 % awns=999) EOSINOPHILS RELATIVE PERCENT (BEAKER) (test 0 % alpm=463) BASOPHILS RELATIVE PERCENT (BEAKER) (test 0 % qmtw=727) NEUTROPHILS ABSOLUTE COUNT (BEAKER) (test 10.44 K/ L 1.56-6.13 wvob=952) LYMPHOCYTES ABSOLUTE COUNT (BEAKER) (test 1.29 K/ L 1.18-3.74 xzbw=450) MONOCYTES ABSOLUTE COUNT (BEAKER) (test 1.12 K/ L 0.24-0.36 gjzg=483) EOSINOPHILS ABSOLUTE COUNT (BEAKER) (test 0.01 K/ L 0.04-0.36 htwt=768) BASOPHILS ABSOLUTE COUNT (BEAKER) (test 0.04 K/ L 0.01-0.08 veou=799) IMMATURE GRANULOCYTES-RELATIVE PERCENT (BEAKER) 1 % 0-1 (test xwxx=5062) RAD, CHEST, 1 VIEW, NON [id number] 04:45:00Reason for exam:->respiratory insufficiencyFINAL REPORT CLINICAL INDICATION: Respiratory insufficiency Comparison: 07/21/2017 The cardiomediastinal contours are stable. The left hemidiaphragm is slightly elevated. Centralpulmonary vascular congestion and bilateral parenchymal opacities are unchanged. There is no pneumothorax. A femoral Impella device remains in place. Signed: Adelso Sorensen Verified Date/Time:07/22/2017 04:45:12 Reading Location: [address] Reading Room POCT-GLUCOSE [id number] 03:01:00 Test Item Value Reference Range Comments POC-GLUCOSE METER (BEAKER) 115 mg/dL 70-110 TESTED AT [facility] [address] [facility] (test zaea=8855) [facility] [address] POCT-GLUCOSE [id number] 00:14:00 Test Item Value Reference Range Comments POC-GLUCOSE METER (BEAKER) 137 mg/dL 70-110 TESTED AT [facility] [address] [facility] (test bfdp=2523) [facility] [address] [id number] 00:09:00 Test Item Value Reference Range Comments POTASSIUM (BEAKER) (test mjhx=580) 3.8 meq/L 3.5-5.1 PRN - repeat glucose levels every 1 hour or as specified by insulin titration orders until glucose level is less than 450 mg/dLCheck Serum Potassium level 2 hours after oral potassium replacement completed or 30 min after intravenous potassium replacement.[id number] 00:09:00 Test Item Value Reference Range Comments MAGNESIUM (BEAKER) (test kdsl=693) 2.5 mg/dL 1.6-2.6 PRN - repeat glucose levels every 1 hour or as specified by insulin titration orders until glucose level is less than 450 mg/dLCheck Serum Potassium level 2 hours after oral potassium replacement completed or 30 min after intravenous potassium replacement.[id number] 00:09:00 Test Item Value Reference Range Comments PHOSPHORUS (BEAKER) (test wzce=153) 1.9 mg/dL 2.3-4.7 PRN - repeat glucose levels every 1 hour or as specified by insulin titration orders until glucose level is less than 450 mg/dLCheck Serum Potassium level 2 hours after oral potassium replacement completed or 30 min after intravenous potassium replacement.[id number] 00:09:00 Test Item Value Reference Range Comments GLUCOSE RANDOM (BEAKER) (test hmau=605) 155 mg/dL 70-105 PRN - repeat glucose levels every 1 hour or as specified by insulin titration orders until glucose level is less than 450 mg/dLCheck Serum Potassium level 2 hours after oral potassium replacement completed or 30 min after intravenous potassium replacement.BASIC METABOLIC [id number] 00:09:00 Test Item Value Reference Range Comments SODIUM (BEAKER) (test 142 meq/L 136-145 qhnn=138) POTASSIUM (BEAKER) (test 3.8 meq/L 3.5-5.1 wuoj=281) CHLORIDE (BEAKER) (test 105 meq/L 98-107 able=226) CO2 (BEAKER) (test 30 meq/L 22-29 qufi=972) BLOOD UREA NITROGEN 37 mg/dL 7-21 (BEAKER) (test augw=458) CREATININE (BEAKER) (test 1.80 mg/dL 0.57-1.25 yxdv=882) GLUCOSE RANDOM (BEAKER) 155 mg/dL 70-105 (test mrsd=644) CALCIUM (BEAKER) (test 8.8 mg/dL 8.4-10.2 wezf=603) EGFR (BEAKER) (test 34 mL/min/1.73 sq m ESTIMATED GFR IS NOT jhdm=6321) ACCURATE CREATININE CLEARANCE IN PREDICTING GLOMERULAR FILTRATION RATE. ESTIMATED GFR IS NOT APPLICABLE FOR DIALYSIS PATIENTS. PRN - repeat glucose levels every 1 hour or as specified by insulin titration orders until glucose level is less than 450 mg/dLCheck Serum Potassium level 2 hours after oral potassium replacement completed or 30 min after intravenous potassium replacement.[id number] 00:06:00 Test Item Value Reference Range Comments PARTIAL THROMBOPLASTIN TIME (BEAKER) (test 62.0 seconds 22.5-36.0 gbvz=964) BLOOD GAS, [id number] 20:39:00 Test Item Value Reference Range Comments PH ARTERIAL (BEAKER) (test domh=073) 7.45 7.35-7.45 PCO2 ARTERIAL (BEAKER) (test noew=596) 46 mmHg 35-45 PO2 ARTERIAL (BEAKER) (test fyzj=159) 64 mmHg 80-90 O2 SATURATION ARTERIAL (BEAKER) (test xijk=001) 92.0 % 96.0-97.0 HCO3 ARTERIAL (BEAKER) (test jhtf=442) 31 mmol/L 21-29 BASE EXCESS ARTERIAL (BEAKER) (test jhfn=788) 6.7 mmol/L -2.0-3.0 PATIENT TEMPERATURE (BEAKER) (test ndfr=9216) 38.1 C FIO2 (BEAKER) (test cpka=2366) 80.0 % POTASSIUM-STAT [id number] 20:39:00 Test Item Value Reference Range Comments POTASSIUM (BEAKER) (test zeki=506) 3.4 meq/L 3.6-5.5 [id number] 20:16:00 Test Item Value Reference Range Comments FERRITIN (BEAKER) (test hphy=692) 651 ng/mL 5-275 POCT-GLUCOSE [id number] 20:10:00 Test Item Value Reference Range Comments POC-GLUCOSE METER (BEAKER) 180 mg/dL 70-110 TESTED AT [facility] [address] [facility] (test avlp=3832) [facility] [address] POCT-GLUCOSE [id number] 20:10:00 Test Item Value Reference Range Comments POC-GLUCOSE METER (BEAKER) 197 mg/dL 70-110 TESTED AT [place] [id number] [facility] (test lwld=7097) [facility] [address] [id number] 19:54:00 Test Item Value Reference Range Comments PARTIAL THROMBOPLASTIN TIME (BEAKER) (test 62.4 seconds 22.5-36.0 cufo=814) [id number] 19:53:00 Test Item Value Reference Range Comments MAGNESIUM (BEAKER) (test esis=283) 2.2 mg/dL 1.6-2.6 HEPATITIS A ANTIBODY, [id number] 19:25:00 Test Item Value Reference Range Comments HEPATITIS A IGG ANTIBODY (BEAKER) (test atgy=7459) Reactive Nonreactive GLUCOSE-STAT [id number] 19:24:00 Test Item Value Reference Range Comments GLUCOSE RANDOM (BEAKER) (test jkwj=797) 174 mg/dL 70-110 HGB/HCT (H&H) - STAT [id number] 19:24:00 Test Item Value Reference Range Comments HEMOGLOBIN (BEAKER) (test rgyf=428) 10.1 g/dL 12.0-15.0 HEMATOCRIT (BEAKER) (test lwvk=775) 30.0 % 36.0-45.0 POTASSIUM-STAT [id number] 19:24:00 Test Item Value Reference Range Comments POTASSIUM (BEAKER) (test vxll=027) 3.4 meq/L 3.6-5.5 HEPATITIS B CORE ANTIBODY, [id number] 19:21:00 Test Item Value Reference Range Comments HEPATITIS B CORE TOTAL ANTIBODY (BEAKER) (test Nonreactive Nonreactive wqpp=240) HEPATITIS PANEL, [id number] 19:21:00 Test Item Value Reference Range Comments HEPATITIS A IGM ANTIBODY (BEAKER) (test Nonreactive Nonreactive zjgb=651) HEPATITIS B CORE IGM ANTIBODY (BEAKER) (test Nonreactive Nonreactive lfqf=453) HEPATITIS C ANTIBODY (BEAKER) (test gqra=177) Nonreactive Nonreactive HEPATITIS B SURFACE ANTIGEN (2) (BEAKER) (test Nonreactive Nonreactive mzfq=3361) HIV-1 ANTIGEN WITH HIV-1/2 [id number] 19:21:00 Test Item Value Reference Range Comments HIV-1 ANTIGEN WITH HIV 1\T\2 ANTIBODY (2) Nonreactive Nonreactive (BEAKER) (test fofw=3258) BASIC METABOLIC [id number] 18:05:00 Test Item Value Reference Range Comments SODIUM (BEAKER) (test 141 meq/L 136-145 bpkd=988) POTASSIUM (BEAKER) (test 4.0 meq/L 3.5-5.1 hidk=111) CHLORIDE (BEAKER) (test 104 meq/L 98-107 kxls=416) CO2 (BEAKER) (test 26 meq/L 22-29 rbae=597) BLOOD UREA NITROGEN 41 mg/dL 7-21 (BEAKER) (test vopu=269) CREATININE (BEAKER) (test 2.07 mg/dL 0.57-1.25 duqu=497) GLUCOSE RANDOM (BEAKER) 242 mg/dL 70-105 (test tusr=542) CALCIUM (BEAKER) (test 8.9 mg/dL 8.4-10.2 rbbj=278) EGFR (BEAKER) (test 29 mL/min/1.73 sq m ESTIMATED GFR IS NOT eslv=4971) ACCURATE CREATININE CLEARANCE IN PREDICTING GLOMERULAR FILTRATION RATE. ESTIMATED GFR IS NOT APPLICABLE FOR DIALYSIS PATIENTS. Check Serum Potassium level 2 hours after oral potassium replacement completed or 30 min after intravenous potassium replacement.[id number] 18:02:00 Test Item Value Reference Range Comments POTASSIUM (BEAKER) (test dwjo=884) 4.0 meq/L 3.5-5.1 Check Serum Potassium level 2 hours after oral potassium replacement completed or 30 min after intravenous potassium replacement.[id number] 18:02:00 Test Item Value Reference Range Comments MAGNESIUM (BEAKER) (test qjni=873) 2.2 mg/dL 1.6-2.6 Check Serum Potassium level 2 hours after oral potassium replacement completed or 30 min after intravenous potassium replacement.[id number] 18:02:00 Test Item Value Reference Range Comments PHOSPHORUS (BEAKER) (test muii=234) 2.1 mg/dL 2.3-4.7 Check Serum Potassium level 2 hours after oral potassium replacement completed or 30 min after intravenous potassium replacement.POCT-GLUCOSE [id number] 17:31:00 Test Item Value Reference Range Comments POC-GLUCOSE METER (BEAKER) 253 mg/dL 70-110 TESTED AT [address] (test pwpy=9937) [place] [address] VITAMIN D, [id number] 17:31:00 Test Item Value Reference Range Comments VITAMIN D 25-OH (BEAKER) (test nvor=7789) 5.8 ng/mL 6.6-49.9 Effective 01/12/2017: Reference Range ChangeNew: 6.6-49.9 ng/mL Previous: 13.0 -47.8 ng/mLRecommended Vitamin D Target Range: 30.0-40.0 ng/mLPOCT-GLUCOSE [id number] 17:31:00 Test Item Value Reference Range Comments POC-GLUCOSE METER (BEAKER) 269 mg/dL 70-110 TESTED AT [address] (test jnqk=4642) [place] [address] [id number] 17:09:00 Test Item Value Reference Range Comments TRANSFERRIN (BEAKER) (test hsfb=340) 166 mg/dL 174-382 [id number] 17:09:00 Test Item Value Reference Range Comments PREALBUMIN (BEAKER) (test bhnq=861) 14 mg/dL 14-45 IRON, [id number] 17:09:00 Test Item Value Reference Range Comments IRON (BEAKER) (test mesm=403) 57 ug/dL 40-160 TROPONIN [id number] 16:59:00 Test Item Value Reference Range Comments TROPONIN I (BEAKER) (test qplc=680) 45.70 ng/mL 0.00-0.03 Troponin I (TnI) levels must be interpreted [...] failure, acidosis, acute neurological disease, and persistent tachyarrhythmia.[id number] 16:49:00 Test Item Value Reference Range Comments CREATININE (BEAKER) (test 2.17 mg/dL 0.57-1.25 yzzu=030) EGFR (BEAKER) (test 27 mL/min/1.73 sq m ESTIMATED GFR IS NOT kffs=5465) ACCURATE CREATININE CLEARANCE IN PREDICTING GLOMERULAR FILTRATION RATE. ESTIMATED GFR IS NOT APPLICABLE FOR DIALYSIS PATIENTS. URIC [id number] 16:48:00 Test Item Value Reference Range Comments URIC ACID (BEAKER) (test mdgi=366) 8.2 mg/dL 2.6-7.2 LIPID [id number] 16:48:00 Test Item Value Reference Range Comments TRIGLYCERIDES (BEAKER) (test jrot=524) 122 mg/dL CHOLESTEROL (BEAKER) (test fcch=266) 204 mg/dL HDL CHOLESTEROL (BEAKER) (test qzyj=701) 85 mg/dL LDL CHOLESTEROL CALCULATED (BEAKER) (test 95 mg/dL bgdp=197) Triglyceride Reference Range: Low Risk <150 Borderline 150- 199 High Risk 200-499 Very High Risk >=500Cholesterol Reference Range: Low Risk <200 Borderline 200-239 High Risk > 240HDL Cholesterol Reference Range: Low Risk >=60 High Risk <40LDL Cholesterol Reference Range: Optimal <100 Near Optimal 100-129 Borderline 130-159 High 160-189 Very High >=[id number] 16:48:00 Test Item Value Reference Range Comments AMYLASE (BEAKER) (test wtwe=871) 228 U/L 25-125 GAMMA GLUTAMYL TRANSFERASE (GGT)2017-07-21 16:48:00 Test Item Value Reference Range Comments GAMMA GLUTAMYL TRANSFERASE (BEAKER) (test lgrf=115) 52 U/L 9-64 RETICULOCYTE [id number] 16:39:00 Test Item Value Reference Range Comments RETICULOCYTE COUNT PCT (BEAKER) (test vcii=529) 3.8 % 0.5-1.7 TROPONIN [id number] 13:49:00 Test Item Value Reference Range Comments TROPONIN I (BEAKER) (test dlxz=921) 43.19 ng/mL 0.00-0.03 Troponin I (TnI) levels must be interpreted [...] failure, acidosis, acute neurological disease, and persistent tachyarrhythmia.BASIC METABOLIC [id number] 12:22:00 Test Item Value Reference Range Comments SODIUM (BEAKER) (test 141 meq/L 136-145 alnh=572) POTASSIUM (BEAKER) (test 3.9 meq/L 3.5-5.1 vhnc=874) CHLORIDE (BEAKER) (test 102 meq/L 98-107 skqt=783) CO2 (BEAKER) (test 28 meq/L 22-29 jhde=803) BLOOD UREA NITROGEN 40 mg/dL 7-21 (BEAKER) (test nmrs=821) CREATININE (BEAKER) (test 2.20 mg/dL 0.57-1.25 jycd=631) GLUCOSE RANDOM (BEAKER) 238 mg/dL 70-105 (test gbya=382) CALCIUM (BEAKER) (test 8.9 mg/dL 8.4-10.2 rkdi=358) EGFR (BEAKER) (test 27 mL/min/1.73 sq m ESTIMATED GFR IS NOT vlnt=0015) ACCURATE CREATININE CLEARANCE IN PREDICTING GLOMERULAR FILTRATION RATE. ESTIMATED GFR IS NOT APPLICABLE FOR DIALYSIS PATIENTS. [id number] 12:17:00 Test Item Value Reference Range Comments POTASSIUM (BEAKER) (test nawh=666) 3.9 meq/L 3.5-5.1 [id number] 12:17:00 Test Item Value Reference Range Comments MAGNESIUM (BEAKER) (test oixn=988) 2.4 mg/dL 1.6-2.6 [id number] 12:17:00 Test Item Value Reference Range Comments PHOSPHORUS (BEAKER) (test pkkm=901) 3.7 mg/dL 2.3-4.7 [id number] 12:17:00 Test Item Value Reference Range Comments GLUCOSE RANDOM (BEAKER) (test yvag=459) 238 mg/dL 70-105 [id number] 12:04:00 Test Item Value Reference Range Comments PARTIAL THROMBOPLASTIN TIME (BEAKER) (test 59.3 seconds 22.5-36.0 kaot=367) SPUTUM CULTURE + GRAM [id number] 11:47:00 Test Item Value Reference Range Comments CULTURE (BEAKER) (test <1+ Normal respiratory pascual cbmd=9697) present GRAM STAIN RESULT (BEAKER) 1+ WBCs (test cfwg=0584) GRAM STAIN RESULT (BEAKER) 0-5 epithelial cells (test rdzl=27355) GRAM STAIN RESULT (BEAKER) No organisms seen (test lhaw=57072) HEMOGLOBIN AND [id number] 11:26:00 Test Item Value Reference Range Comments HEMOGLOBIN (BEAKER) (test ibjs=745) 7.9 GM/DL 11.2-15.7 HEMATOCRIT (BEAKER) (test wzqg=945) 26.5 % 34.1-44.9 BLOOD GAS, [id number] 10:43:00 Test Item Value Reference Range Comments PH ARTERIAL (BEAKER) (test dzld=924) 7.42 7.35-7.45 PCO2 ARTERIAL (BEAKER) (test fjqx=919) 44 mmHg 35-45 PO2 ARTERIAL (BEAKER) (test fsff=961) 51 mmHg 80-90 O2 SATURATION ARTERIAL (BEAKER) (test oqrz=375) 88.2 % 96.0-97.0 HCO3 ARTERIAL (BEAKER) (test huuw=984) 28 mmol/L 21-29 BASE EXCESS ARTERIAL (BEAKER) (test jfrg=811) 3.2 mmol/L -2.0-3.0 PATIENT TEMPERATURE (BEAKER) (test lojs=6858) 36.0 C FIO2 (BEAKER) (test noci=3010) 80.0 % URINE [id number] 09:44:00 Test Item Value Reference Range Comments CULTURE (BEAKER) (test gjlm=0193) No growth BASIC METABOLIC [id number] 06:28:00 Test Item Value Reference Range Comments SODIUM (BEAKER) (test 141 meq/L 136-145 mohr=748) POTASSIUM (BEAKER) (test 4.1 meq/L 3.5-5.1 jvhz=307) CHLORIDE (BEAKER) (test 101 meq/L 98-107 fynl=833) CO2 (BEAKER) (test 29 meq/L 22-29 kjmq=169) BLOOD UREA NITROGEN 40 mg/dL 7-21 (BEAKER) (test pizg=076) CREATININE (BEAKER) (test 2.46 mg/dL 0.57-1.25 nrhb=303) GLUCOSE RANDOM (BEAKER) 236 mg/dL 70-105 (test wzwo=040) CALCIUM (BEAKER) (test 8.6 mg/dL 8.4-10.2 uxew=269) EGFR (BEAKER) (test 24 mL/min/1.73 sq m ESTIMATED GFR IS NOT fhrf=2746) ACCURATE CREATININE CLEARANCE IN PREDICTING GLOMERULAR FILTRATION RATE. ESTIMATED GFR IS NOT APPLICABLE FOR DIALYSIS PATIENTS. [id number] 06:26:00 Test Item Value Reference Range Comments PHOSPHORUS (BEAKER) (test xbsr=874) 4.6 mg/dL 2.3-4.7 POCT-GLUCOSE [id number] 06:05:00 Test Item Value Reference Range Comments POC-GLUCOSE METER (BEAKER) 278 mg/dL 70-110 TESTED AT [address] (test vvnb=5748) [place] [id number] POCT-GLUCOSE [id number] 06:05:00 Test Item Value Reference Range Comments POC-GLUCOSE METER (BEAKER) 231 mg/dL 70-110 TESTED AT [address] (test lqli=8216) [place] [id number] POCT-GLUCOSE [id number] 06:05:00 Test Item Value Reference Range Comments POC-GLUCOSE METER (BEAKER) 190 mg/dL 70-110 TESTED AT [address] (test gvuv=1713) [place] [address] [id number] 05:56:00 Test Item Value Reference Range Comments PARTIAL THROMBOPLASTIN TIME (BEAKER) (test 72.5 seconds 22.5-36.0 mait=503) RAD, CHEST, 1 VIEW, NON [id number] 04:38:00Reason for exam:->respiratory insufficiencyFINAL REPORT CLINICAL INDICATION: Respiratory insufficiency Comparison: 07/20/2017 The cardiomediastinal contours are stable. Central pulmonary vascular prominence and bilateral parenchymal opacities are similar within variation of acquisition technique. There is no pneumothorax. A femoral Impella device is stable in position. Signed: Adelso Sorensen MDReport Verified Date/Time:07/21/2017 04:38:32 Reading Location: [address] Reading Room BASIC METABOLIC [id number] 04:06:00 Test Item Value Reference Range Comments SODIUM (BEAKER) (test 142 meq/L 136-145 indn=902) POTASSIUM (BEAKER) (test 3.9 meq/L 3.5-5.1 ksuu=331) CHLORIDE (BEAKER) (test 102 meq/L 98-107 afxn=430) CO2 (BEAKER) (test 31 meq/L 22-29 rhrs=772) BLOOD UREA NITROGEN 40 mg/dL 7-21 (BEAKER) (test vntw=674) CREATININE (BEAKER) (test 2.37 mg/dL 0.57-1.25 qoyy=067) GLUCOSE RANDOM (BEAKER) 206 mg/dL 70-105 (test yuan=290) CALCIUM (BEAKER) (test 8.5 mg/dL 8.4-10.2 clve=240) EGFR (BEAKER) (test 25 mL/min/1.73 sq m ESTIMATED GFR IS NOT gwqg=5059) ACCURATE CREATININE CLEARANCE IN PREDICTING GLOMERULAR FILTRATION RATE. ESTIMATED GFR IS NOT APPLICABLE FOR DIALYSIS PATIENTS. BLOOD GAS, [id number] 03:53:00 Test Item Value Reference Range Comments PH ARTERIAL (BEAKER) (test siik=342) 7.36 7.35-7.45 PCO2 ARTERIAL (BEAKER) (test molb=283) 55 mmHg 35-45 PO2 ARTERIAL (BEAKER) (test iavj=639) 94 mmHg 80-90 O2 SATURATION ARTERIAL (BEAKER) (test tewv=044) 96.0 % 96.0-97.0 HCO3 ARTERIAL (BEAKER) (test szqu=594) 30 mmol/L 21-29 BASE EXCESS ARTERIAL (BEAKER) (test aypu=587) 4.2 mmol/L -2.0-3.0 PATIENT TEMPERATURE (BEAKER) (test cest=8205) 38.8 C FIO2 (BEAKER) (test hjqs=4627) 80.0 % CALCIUM, [id number] 03:51:00 Test Item Value Reference Range Comments CALCIUM IONIZED (BEAKER) (test edab=898) 1.07 mmol/L 1.12-1.27 PH, BLOOD (BEAKER) (test wyum=1973) 7.35 OXYGEN SATURATION, [id number] 03:50:00 Test Item Value Reference Range Comments O2 SATURATION (MEASURED) (BEAKER) (test pkhi=4133) 72.6 % [id number] 03:47:00 Test Item Value Reference Range Comments PHOSPHORUS (BEAKER) (test lirs=584) 4.5 mg/dL 2.3-4.7 [id number] 03:47:00 Test Item Value Reference Range Comments MAGNESIUM (BEAKER) (test ktjk=651) 2.1 mg/dL 1.6-2.6 HEPATIC FUNCTION [id number] 03:47:00 Test Item Value Reference Range Comments TOTAL PROTEIN (BEAKER) (test rxvi=743) 6.1 gm/dL 6.0-8.3 ALBUMIN (BEAKER) (test ixom=1344) 3.1 g/dL 3.5-5.0 BILIRUBIN TOTAL (BEAKER) (test vsdr=181) 1.4 mg/dL 0.2-1.2 BILIRUBIN DIRECT (BEAKER) (test njij=027) 0.6 mg/dL 0.1-0.5 ALKALINE PHOSPHATASE (BEAKER) (test gvox=140) 45 U/L 40-150 AST (SGOT) (BEAKER) (test keea=929) 94 U/L 5-34 ALT (SGPT) (BEAKER) (test fxwf=030) 48 U/L 6-55 LACTATE DEHYDROGENASE (LDH)2017-07-21 03:47:00 Test Item Value Reference Range Comments LACTATE DEHYDROGENASE (BEAKER) (test akjt=320) 1470 U/L 125-220 CBC W/PLT COUNT & AUTO [id number] 03:41:00 Test Item Value Reference Range Comments WHITE BLOOD CELL COUNT (BEAKER) (test zwpz=421) 14.1 K/ L 3.5-10.5 RED BLOOD CELL COUNT (BEAKER) (test qepe=190) 2.81 M/ L 3.93-5.22 HEMOGLOBIN (BEAKER) (test amii=936) 8.6 GM/DL 11.2-15.7 HEMATOCRIT (BEAKER) (test hvzt=750) 28.2 % 34.1-44.9 MEAN CORPUSCULAR VOLUME (BEAKER) (test vufy=604) 100.4 fL 79.4-94.8 MEAN CORPUSCULAR HEMOGLOBIN (BEAKER) (test 30.6 pg 25.6-32.2 lzoc=791) MEAN CORPUSCULAR HEMOGLOBIN CONC (BEAKER) (test 30.5 GM/DL 32.2-35.5 eskx=486) RED CELL DISTRIBUTION WIDTH (BEAKER) (test 13.1 % 11.7-14.4 oavx=467) PLATELET COUNT (BEAKER) (test ryzk=276) 140 K/CU MM 150-450 MEAN PLATELET VOLUME (BEAKER) (test deil=250) 11.1 fL 9.4-12.3 NUCLEATED RED BLOOD CELLS (BEAKER) (test 0 /100 WBC 0-0 gdnw=343) NEUTROPHILS RELATIVE PERCENT (BEAKER) (test 86 % nknh=165) LYMPHOCYTES RELATIVE PERCENT (BEAKER) (test 6 % ryot=203) MONOCYTES RELATIVE PERCENT (BEAKER) (test 8 % fecj=736) EOSINOPHILS RELATIVE PERCENT (BEAKER) (test 0 % vdsl=474) BASOPHILS RELATIVE PERCENT (BEAKER) (test 0 % yvgy=105) NEUTROPHILS ABSOLUTE COUNT (BEAKER) (test 12.13 K/ L 1.56-6.13 iebz=131) LYMPHOCYTES ABSOLUTE COUNT (BEAKER) (test 0.81 K/ L 1.18-3.74 rvam=193) MONOCYTES ABSOLUTE COUNT (BEAKER) (test 1.07 K/ L 0.24-0.36 nvjl=057) EOSINOPHILS ABSOLUTE COUNT (BEAKER) (test 0.00 K/ L 0.04-0.36 bdqd=882) BASOPHILS ABSOLUTE COUNT (BEAKER) (test 0.02 K/ L 0.01-0.08 pozw=518) IMMATURE GRANULOCYTES-RELATIVE PERCENT (BEAKER) 1 % 0-1 (test ndzd=2678) LACTIC ACID, ARTERIAL, WHOLE [id number] 03:39:00 Test Item Value Reference Range Comments LACTATE BLOOD ARTERIAL (2) (BEAKER) (test 0.9 mmol/L 0.5-2.2 dtxd=4439) Effective 08/06/2015: Units/Reference Range ChangeNew: 0.5-2.2 mmol/L Previous: 5 -20 mg/dLTROPONIN [id number] 00:12:00 Test Item Value Reference Range Comments TROPONIN I (BEAKER) (test shgy=175) 60.74 ng/mL 0.00-0.03 Troponin I (TnI) levels must be interpreted [...] failure, acidosis, acute neurological disease, and persistent tachyarrhythmia.[id number] 23:42:00 Test Item Value Reference Range Comments PHOSPHORUS (BEAKER) (test duwx=504) 4.9 mg/dL 2.3-4.7 BASIC METABOLIC [id number] 23:42:00 Test Item Value Reference Range Comments SODIUM (BEAKER) (test 141 meq/L 136-145 ybqm=074) POTASSIUM (BEAKER) (test 4.2 meq/L 3.5-5.1 xuxg=521) CHLORIDE (BEAKER) (test 102 meq/L 98-107 cgvk=388) CO2 (BEAKER) (test 29 meq/L 22-29 japd=945) BLOOD UREA NITROGEN 40 mg/dL 7-21 (BEAKER) (test kjlo=539) CREATININE (BEAKER) (test 2.36 mg/dL 0.57-1.25 zoze=803) GLUCOSE RANDOM (BEAKER) 200 mg/dL 70-105 (test aayb=454) CALCIUM (BEAKER) (test 8.4 mg/dL 8.4-10.2 hzgq=378) EGFR (BEAKER) (test 25 mL/min/1.73 sq m ESTIMATED GFR IS NOT gxts=5574) ACCURATE CREATININE CLEARANCE IN PREDICTING GLOMERULAR FILTRATION RATE. ESTIMATED GFR IS NOT APPLICABLE FOR DIALYSIS PATIENTS. [id number] 23:39:00 Test Item Value Reference Range Comments PARTIAL THROMBOPLASTIN TIME (BEAKER) (test 78.1 seconds 22.5-36.0 uxve=791) POCT-GLUCOSE [id number] 23:28:00 Test Item Value Reference Range Comments POC-GLUCOSE METER (BEAKER) 250 mg/dL 70-110 TESTED AT [facility] [address] [facility] (test datu=4990) [facility] [address] POCT-GLUCOSE [id number] 22:19:00 Test Item Value Reference Range Comments POC-GLUCOSE METER (BEAKER) 202 mg/dL 70-110 TESTED AT [facility] [address] [facility] (test ztnk=1339) [facility] [address] HEPATIC FUNCTION [id number] 21:45:00 Test Item Value Reference Range Comments TOTAL PROTEIN (BEAKER) (test ipnj=745) 5.9 gm/dL 6.0-8.3 ALBUMIN (BEAKER) (test avyw=9721) 3.1 g/dL 3.5-5.0 BILIRUBIN TOTAL (BEAKER) (test bgtw=535) 1.0 mg/dL 0.2-1.2 BILIRUBIN DIRECT (BEAKER) (test ogax=678) 0.5 mg/dL 0.1-0.5 ALKALINE PHOSPHATASE (BEAKER) (test hhiw=288) 46 U/L 40-150 AST (SGOT) (BEAKER) (test fyph=576) 95 U/L 5-34 ALT (SGPT) (BEAKER) (test yago=418) 47 U/L 6-55 BASIC METABOLIC [id number] 21:45:00 Test Item Value Reference Range Comments SODIUM (BEAKER) (test 141 meq/L 136-145 vmbf=316) POTASSIUM (BEAKER) (test 4.0 meq/L 3.5-5.1 rhmx=670) CHLORIDE (BEAKER) (test 103 meq/L 98-107 vkmw=804) CO2 (BEAKER) (test 27 meq/L 22-29 xtgp=125) BLOOD UREA NITROGEN 40 mg/dL 7-21 (BEAKER) (test izok=122) CREATININE (BEAKER) (test 2.30 mg/dL 0.57-1.25 ourm=673) GLUCOSE RANDOM (BEAKER) 192 mg/dL 70-105 (test waoi=155) CALCIUM (BEAKER) (test 8.4 mg/dL 8.4-10.2 ptuz=346) EGFR (BEAKER) (test 25 mL/min/1.73 sq m ESTIMATED GFR IS NOT rxzh=7173) ACCURATE CREATININE CLEARANCE IN PREDICTING GLOMERULAR FILTRATION RATE. ESTIMATED GFR IS NOT APPLICABLE FOR DIALYSIS PATIENTS. [id number] 21:38:00 Test Item Value Reference Range Comments MAGNESIUM (BEAKER) (test ujrv=223) 2.1 mg/dL 1.6-2.6 LACTIC ACID, ARTERIAL, WHOLE [id number] 21:32:00 Test Item Value Reference Range Comments LACTATE BLOOD ARTERIAL (2) (BEAKER) (test 0.6 mmol/L 0.5-2.2 cmav=0868) Effective 08/06/2015: Units/Reference Range ChangeNew: 0.5-2.2 mmol/L Previous: 5 -20 mg/dLPOCT-GLUCOSE [id number] 21:21:00 Test Item Value Reference Range Comments POC-GLUCOSE METER (BEAKER) 198 mg/dL 70-110 TESTED AT [address] (test dwib=9004) [facility] [address] POCT-GLUCOSE [id number] 21:21:00 Test Item Value Reference Range Comments POC-GLUCOSE METER (BEAKER) 155 mg/dL 70-110 TESTED AT [address] (test negx=6079) [facility] [address] POCT-GLUCOSE [id number] 21:21:00 Test Item Value Reference Range Comments POC-GLUCOSE METER (BEAKER) 67 mg/dL 70-110 TESTED AT [address] (test pyfy=1227) [facility] [address] BLOOD GAS, [id number] 21:16:00 Test Item Value Reference Range Comments PH ARTERIAL (BEAKER) (test nudq=166) 7.34 7.35-7.45 PCO2 ARTERIAL (BEAKER) (test pefz=711) 56 mmHg 35-45 PO2 ARTERIAL (BEAKER) (test uhdr=972) 107 mmHg 80-90 O2 SATURATION ARTERIAL (BEAKER) (test acrb=836) 97.3 % 96.0-97.0 HCO3 ARTERIAL (BEAKER) (test tejr=112) 29 mmol/L 21-29 BASE EXCESS ARTERIAL (BEAKER) (test myqb=323) 2.7 mmol/L -2.0-3.0 PATIENT TEMPERATURE (BEAKER) (test fwrl=3518) 37.8 C FIO2 (BEAKER) (test lcuv=9582) 100.0 % GLUCOSE-STAT [id number] 21:16:00 Test Item Value Reference Range Comments GLUCOSE RANDOM (BEAKER) (test gnok=149) 188 mg/dL 70-110 HGB/HCT (H&H) - STAT [id number] 21:16:00 Test Item Value Reference Range Comments HEMOGLOBIN (BEAKER) (test vdlf=699) 9.9 g/dL 12.0-15.0 HEMATOCRIT (BEAKER) (test rbau=623) 29.0 % 36.0-45.0 SODIUM NA-STAT [id number] 21:15:00 Test Item Value Reference Range Comments SODIUM (BEAKER) (test vonc=802) 140 meq/L 135-148 POTASSIUM-STAT [id number] 21:15:00 Test Item Value Reference Range Comments POTASSIUM (BEAKER) (test djuh=375) 3.9 meq/L 3.6-5.5 BLOOD GAS, [id number] 19:44:00 Test Item Value Reference Range Comments PH ARTERIAL (BEAKER) (test ivdk=498) 7.34 7.35-7.45 PCO2 ARTERIAL (BEAKER) (test rszi=388) 31 mmHg 35-45 PO2 ARTERIAL (BEAKER) (test dlya=729) 68 mmHg 80-90 O2 SATURATION ARTERIAL (BEAKER) (test pouv=168) 92.1 % 96.0-97.0 HCO3 ARTERIAL (BEAKER) (test otdx=093) 16 mmol/L 21-29 BASE EXCESS ARTERIAL (BEAKER) (test ghwx=478) -8.7 mmol/L -2.0-3.0 PATIENT TEMPERATURE (BEAKER) (test azaf=2116) 37.7 C FIO2 (BEAKER) (test rysd=0837) 50.0 % POCT-GLUCOSE [id number] 18:30:00 Test Item Value Reference Range Comments POC-GLUCOSE METER (BEAKER) 90 mg/dL 70-110 TESTED AT [facility] [address] [facility] (test oouc=1155) [facility] [address] TROPONIN [id number] 18:05:00 Test Item Value Reference Range Comments TROPONIN I (BEAKER) (test kpge=139) 76.69 ng/mL 0.00-0.03 Troponin I (TnI) levels must be interpreted [...] failure, acidosis, acute neurological disease, and persistent tachyarrhythmia.BASIC METABOLIC [id number] 17:56:00 Test Item Value Reference Range Comments SODIUM (BEAKER) (test 143 meq/L 136-145 ofik=376) POTASSIUM (BEAKER) (test 3.8 meq/L 3.5-5.1 yhzg=954) CHLORIDE (BEAKER) (test 104 meq/L 98-107 hbiz=105) CO2 (BEAKER) (test 29 meq/L 22-29 zyeu=007) BLOOD UREA NITROGEN 37 mg/dL 7-21 (BEAKER) (test ntnt=550) CREATININE (BEAKER) (test 2.45 mg/dL 0.57-1.25 qist=530) GLUCOSE RANDOM (BEAKER) 107 mg/dL 70-105 (test efyo=539) CALCIUM (BEAKER) (test 8.6 mg/dL 8.4-10.2 cwxd=942) EGFR (BEAKER) (test 24 mL/min/1.73 sq m ESTIMATED GFR IS NOT wyvz=2991) ACCURATE CREATININE CLEARANCE IN PREDICTING GLOMERULAR FILTRATION RATE. ESTIMATED GFR IS NOT APPLICABLE FOR DIALYSIS PATIENTS. [id number] 17:43:00 Test Item Value Reference Range Comments PHOSPHORUS (BEAKER) (test exbq=520) 4.8 mg/dL 2.3-4.7 [id number] 17:43:00 Test Item Value Reference Range Comments MAGNESIUM (BEAKER) (test ouft=557) 2.4 mg/dL 1.6-2.6 [id number] 17:34:00 Test Item Value Reference Range Comments PARTIAL THROMBOPLASTIN TIME (BEAKER) (test 101.4 seconds 22.5-36.0 cxar=596) BLOOD GAS, [id number] 17:23:00 Test Item Value Reference Range Comments PH ARTERIAL (BEAKER) (test dzyo=208) 7.36 7.35-7.45 PCO2 ARTERIAL (BEAKER) (test cccv=556) 60 mmHg 35-45 PO2 ARTERIAL (BEAKER) (test gjhg=857) 82 mmHg 80-90 O2 SATURATION ARTERIAL (BEAKER) (test bmht=584) 95.1 % 96.0-97.0 HCO3 ARTERIAL (BEAKER) (test eleb=798) 33 mmol/L 21-29 BASE EXCESS ARTERIAL (BEAKER) (test jcyy=923) 6.0 mmol/L -2.0-3.0 PATIENT TEMPERATURE (BEAKER) (test eevw=5816) 37.4 C FIO2 (BEAKER) (test eojz=6606) 70.0 % GLUCOSE-STAT [id number] 17:20:00 Test Item Value Reference Range Comments GLUCOSE RANDOM (BEAKER) (test odvi=659) 106 mg/dL 70-110 POCT-GLUCOSE [id number] 16:32:00 Test Item Value Reference Range Comments POC-GLUCOSE METER (BEAKER) 115 mg/dL 70-110 TESTED AT [address] (test ksjd=6753) [place] [id number] VANCOMYCIN LEVEL, [id number] 16:10:00 Test Item Value Reference Range Comments VANCOMYCIN TROUGH (BEAKER) (test mjaz=785) 17.0 ug/mL 10.0-20.0 POCT-GLUCOSE [id number] 15:32:00 Test Item Value Reference Range Comments POC-GLUCOSE METER (BEAKER) 119 mg/dL 70-110 TESTED AT [address] (test aufc=2872) [place] [address] TROPONIN [id number] 13:14:00 Test Item Value Reference Range Comments TROPONIN I (BEAKER) (test gzkk=559) 81.57 ng/mL 0.00-0.03 Troponin I (TnI) levels must be interpreted [...] failure, acidosis, acute neurological disease, and persistent tachyarrhythmia.BASIC METABOLIC [id number] 12:49:00 Test Item Value Reference Range Comments SODIUM (BEAKER) (test 140 meq/L 136-145 hizt=313) POTASSIUM (BEAKER) (test 3.6 meq/L 3.5-5.1 Specimen slightly piwh=207) hemolyzed CHLORIDE (BEAKER) (test 104 meq/L 98-107 yois=830) CO2 (BEAKER) (test 27 meq/L 22-29 ogxx=112) BLOOD UREA NITROGEN 37 mg/dL 7-21 (BEAKER) (test xoiv=779) CREATININE (BEAKER) (test 2.35 mg/dL 0.57-1.25 Specimen slightly jngj=760) hemolyzed GLUCOSE RANDOM (BEAKER) 192 mg/dL 70-105 (test huwu=604) CALCIUM (BEAKER) (test 8.1 mg/dL 8.4-10.2 lrpe=489) EGFR (BEAKER) (test 25 mL/min/1.73 sq m ESTIMATED GFR IS NOT yqnu=5761) ACCURATE CREATININE CLEARANCE IN PREDICTING GLOMERULAR FILTRATION RATE. ESTIMATED GFR IS NOT APPLICABLE FOR DIALYSIS PATIENTS. [id number] 12:46:00 Test Item Value Reference Range Comments MAGNESIUM (BEAKER) (test 2.2 mg/dL 1.6-2.6 Specimen slightly hemolyzed grwn=336) [id number] 12:46:00 Test Item Value Reference Range Comments PHOSPHORUS (BEAKER) (test 4.6 mg/dL 2.3-4.7 Specimen slightly hemolyzed fiqp=279) POCT-GLUCOSE [id number] 12:16:00 Test Item Value Reference Range Comments POC-GLUCOSE METER (BEAKER) 210 mg/dL 70-110 TESTED AT [address] (test sdmz=8783) [place] [id number] POCT-GLUCOSE [id number] 12:16:00 Test Item Value Reference Range Comments POC-GLUCOSE METER (BEAKER) 247 mg/dL 70-110 TESTED AT [address] (test ffdb=5366) [facility] [address] POCT-GLUCOSE [id number] 12:16:00 Test Item Value Reference Range Comments POC-GLUCOSE METER (BEAKER) 174 mg/dL 70-110 TESTED AT [address] (test yxnz=3536) [facility] [address] BLOOD GAS, [id number] 12:14:00 Test Item Value Reference Range Comments PH ARTERIAL (BEAKER) (test ieeu=938) 7.36 7.35-7.45 PCO2 ARTERIAL (BEAKER) (test rgzw=211) 56 mmHg 35-45 PO2 ARTERIAL (BEAKER) (test keha=025) 65 mmHg 80-90 O2 SATURATION ARTERIAL (BEAKER) (test wbig=742) 90.4 % 96.0-97.0 HCO3 ARTERIAL (BEAKER) (test svid=175) 31 mmol/L 21-29 BASE EXCESS ARTERIAL (BEAKER) (test rupl=946) 4.8 mmol/L -2.0-3.0 PATIENT TEMPERATURE (BEAKER) (test ixvs=1248) 38.0 C FIO2 (BEAKER) (test wzct=6193) 60.0 % [id number] 10:58:00 Test Item Value Reference Range Comments PARTIAL THROMBOPLASTIN TIME (BEAKER) (test 99.0 seconds 22.5-36.0 twne=753) RAD, CHEST, 1 VIEW, NON [id number] 08:30:00Reason for exam:->r/o pleural effusionShould this be performed at the bedside?->YesFINAL REPORT Chest one view INDICATION: Pleural effusion COMPARISON: 07/19/2012 IMPRESSION: ET and NG tubes have been removed. A metallic catheter is again noted. The cardiac silhouette is enlarged. 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 There is mild pulmonary vascular congestion. Minimal pleural effusions may be present. Bibasilar consolidation or atelectasis is stable. Paratracheal stripe enlargement is unchanged. No pneumothorax is seen. Signed: Yoshi Martinez [facility] Verified Date/Time: 07/20/2017 08:30:52 Reading Location: [facility] Radiology ReadingRoom BLOOD GAS, [id number] 06 :37:00 Test Item Value Reference Range Comments PH ARTERIAL (BEAKER) (test topf=839) 7.38 7.35-7.45 PCO2 ARTERIAL (BEAKER) (test tjye=864) 50 mmHg 35-45 PO2 ARTERIAL (BEAKER) (test tndj=493) 97 mmHg 80-90 O2 SATURATION ARTERIAL (BEAKER) (test ipyl=209) 96.9 % 96.0-97.0 HCO3 ARTERIAL (BEAKER) (test tthp=010) 28 mmol/L 21-29 BASE EXCESS ARTERIAL (BEAKER) (test ylmn=199) 2.7 mmol/L -2.0-3.0 PATIENT TEMPERATURE (BEAKER) (test delg=1695) 37.8 C FIO2 (BEAKER) (test dfmn=7001) 40.0 % POCT-GLUCOSE [id number] 06:15:00 Test Item Value Reference Range Comments POC-GLUCOSE METER (BEAKER) 114 mg/dL 70-110 TESTED AT [address] (test jcqt=5338) [facility] [id number] POCT-GLUCOSE [id number] 06:15:00 Test Item Value Reference Range Comments POC-GLUCOSE METER (BEAKER) 140 mg/dL 70-110 TESTED AT [address] (test crcf=9757) [facility] [id number] POCT-GLUCOSE [id number] 05:23:00 Test Item Value Reference Range Comments POC-GLUCOSE METER (BEAKER) 77 mg/dL 70-110 TESTED AT [address] (test rmec=3084) [facility] [id number] CALCIUM, [id number] 04:34:00 Test Item Value Reference Range Comments CALCIUM IONIZED (BEAKER) (test cwpj=514) 1.14 mmol/L 1.12-1.27 PH, BLOOD (BEAKER) (test omfo=4331) 7.34 BLOOD GAS, [id number] 04:32:00 Test Item Value Reference Range Comments PH ARTERIAL (BEAKER) (test bces=432) 7.32 7.35-7.45 PCO2 ARTERIAL (BEAKER) (test brlm=597) 60 mmHg 35-45 PO2 ARTERIAL (BEAKER) (test aicn=088) 92 mmHg 80-90 O2 SATURATION ARTERIAL (BEAKER) (test ovlx=960) 95.9 % 96.0-97.0 HCO3 ARTERIAL (BEAKER) (test gxoa=071) 30 mmol/L 21-29 BASE EXCESS ARTERIAL (BEAKER) (test htau=515) 3.2 mmol/L -2.0-3.0 PATIENT TEMPERATURE (BEAKER) (test mhxe=0590) 37.8 C FIO2 (BEAKER) (test uiec=4523) 40.0 % COMPREHENSIVE METABOLIC [id number] 04:24:00 Test Item Value Reference Range Comments TOTAL PROTEIN (BEAKER) 6.5 gm/dL 6.0-8.3 (test aaur=678) ALBUMIN (BEAKER) (test 3.4 g/dL 3.5-5.0 lczn=9749) ALKALINE PHOSPHATASE 47 U/L 40-150 (BEAKER) (test jmma=907) BILIRUBIN TOTAL (BEAKER) 0.8 mg/dL 0.2-1.2 (test hbbn=655) SODIUM (BEAKER) (test 142 meq/L 136-145 ehaj=020) POTASSIUM (BEAKER) (test 3.7 meq/L 3.5-5.1 thwj=584) CHLORIDE (BEAKER) (test 103 meq/L 98-107 zglm=523) CO2 (BEAKER) (test 29 meq/L 22-29 xmda=733) BLOOD UREA NITROGEN 34 mg/dL 7-21 (BEAKER) (test xmnt=652) CREATININE (BEAKER) (test 2.44 mg/dL 0.57-1.25 vrpy=233) GLUCOSE RANDOM (BEAKER) 128 mg/dL 70-105 (test tgpj=015) CALCIUM (BEAKER) (test 8.7 mg/dL 8.4-10.2 etvt=158) AST (SGOT) (BEAKER) (test 158 U/L 5-34 oeuv=566) ALT (SGPT) (BEAKER) (test 63 U/L 6-55 vtuq=779) EGFR (BEAKER) (test 24 mL/min/1.73 sq m ESTIMATED GFR IS NOT tehv=9227) ACCURATE CREATININE CLEARANCE IN PREDICTING GLOMERULAR FILTRATION RATE. ESTIMATED GFR IS NOT APPLICABLE FOR DIALYSIS PATIENTS. BASIC METABOLIC [id number] 04:24:00 Test Item Value Reference Range Comments SODIUM (BEAKER) (test 142 meq/L 136-145 enko=940) POTASSIUM (BEAKER) (test 3.7 meq/L 3.5-5.1 pxtc=300) CHLORIDE (BEAKER) (test 103 meq/L 98-107 hsak=389) CO2 (BEAKER) (test 29 meq/L 22-29 ehuw=542) BLOOD UREA NITROGEN 34 mg/dL 7-21 (BEAKER) (test kvpf=360) CREATININE (BEAKER) (test 2.44 mg/dL 0.57-1.25 mtxe=669) GLUCOSE RANDOM (BEAKER) 128 mg/dL 70-105 (test flil=585) CALCIUM (BEAKER) (test 8.7 mg/dL 8.4-10.2 mbsp=528) EGFR (BEAKER) (test 24 mL/min/1.73 sq m ESTIMATED GFR IS NOT hbdi=1615) ACCURATE CREATININE CLEARANCE IN PREDICTING GLOMERULAR FILTRATION RATE. ESTIMATED GFR IS NOT APPLICABLE FOR DIALYSIS PATIENTS. [id number] 04:22:00 Test Item Value Reference Range Comments PHOSPHORUS (BEAKER) (test mhzw=729) 5.2 mg/dL 2.3-4.7 [id number] 04:22:00 Test Item Value Reference Range Comments MAGNESIUM (BEAKER) (test ggwe=134) 2.4 mg/dL 1.6-2.6 HEPATIC FUNCTION [id number] 04:22:00 Test Item Value Reference Range Comments TOTAL PROTEIN (BEAKER) (test djin=393) 6.5 gm/dL 6.0-8.3 ALBUMIN (BEAKER) (test ixur=7321) 3.4 g/dL 3.5-5.0 BILIRUBIN TOTAL (BEAKER) (test ujnh=193) 0.8 mg/dL 0.2-1.2 BILIRUBIN DIRECT (BEAKER) (test kmip=733) 0.4 mg/dL 0.1-0.5 ALKALINE PHOSPHATASE (BEAKER) (test tvvi=154) 47 U/L 40-150 AST (SGOT) (BEAKER) (test acwk=565) 158 U/L 5-34 ALT (SGPT) (BEAKER) (test xfmg=127) 63 U/L 6-55 [id number] 04:12:00 Test Item Value Reference Range Comments PARTIAL THROMBOPLASTIN TIME (BEAKER) (test 36.8 seconds 22.5-36.0 heei=105) Prior to initiating heparinPOCT-GLUCOSE [id number] 04:05:00 Test Item Value Reference Range Comments POC-GLUCOSE METER (BEAKER) 134 mg/dL 70-110 TESTED AT [facility] [address] [facility] (test cfhk=5106) [facility] [address] POCT-GLUCOSE [id number] 04:05:00 Test Item Value Reference Range Comments POC-GLUCOSE METER (BEAKER) 122 mg/dL 70-110 TESTED AT [facility] [address] [facility] (test iqni=4038) [facility] [address] POCT-GLUCOSE [id number] 04:05:00 Test Item Value Reference Range Comments POC-GLUCOSE METER (BEAKER) 201 mg/dL 70-110 TESTED AT [facility] [address] [facility] (test nmlr=5272) [facility] [address] CBC W/PLT COUNT & AUTO [id number] 04:02:00 Test Item Value Reference Range Comments WHITE BLOOD CELL COUNT (BEAKER) (test ptar=038) 13.6 K/ L 3.5-10.5 RED BLOOD CELL COUNT (BEAKER) (test jdaw=551) 3.18 M/ L 3.93-5.22 HEMOGLOBIN (BEAKER) (test qtyq=192) 9.7 GM/DL 11.2-15.7 HEMATOCRIT (BEAKER) (test wduc=611) 31.0 % 34.1-44.9 MEAN CORPUSCULAR VOLUME (BEAKER) (test pchg=760) 97.5 fL 79.4-94.8 MEAN CORPUSCULAR HEMOGLOBIN (BEAKER) (test 30.5 pg 25.6-32.2 gfvp=140) MEAN CORPUSCULAR HEMOGLOBIN CONC (BEAKER) (test 31.3 GM/DL 32.2-35.5 cdxs=152) RED CELL DISTRIBUTION WIDTH (BEAKER) (test 13.3 % 11.7-14.4 frfw=099) PLATELET COUNT (BEAKER) (test oamp=966) 167 K/CU MM 150-450 MEAN PLATELET VOLUME (BEAKER) (test lent=690) 11.0 fL 9.4-12.3 NUCLEATED RED BLOOD CELLS (BEAKER) (test 0 /100 WBC 0-0 yljl=022) NEUTROPHILS RELATIVE PERCENT (BEAKER) (test 85 % nzbd=808) LYMPHOCYTES RELATIVE PERCENT (BEAKER) (test 7 % blmw=976) MONOCYTES RELATIVE PERCENT (BEAKER) (test 7 % odrt=448) EOSINOPHILS RELATIVE PERCENT (BEAKER) (test 0 % dqya=447) BASOPHILS RELATIVE PERCENT (BEAKER) (test 0 % dgoq=355) NEUTROPHILS ABSOLUTE COUNT (BEAKER) (test 11.61 K/ L 1.56-6.13 hcjm=429) LYMPHOCYTES ABSOLUTE COUNT (BEAKER) (test 0.98 K/ L 1.18-3.74 rfxe=697) MONOCYTES ABSOLUTE COUNT (BEAKER) (test 0.92 K/ L 0.24-0.36 tlal=657) EOSINOPHILS ABSOLUTE COUNT (BEAKER) (test 0.00 K/ L 0.04-0.36 zvwk=200) BASOPHILS ABSOLUTE COUNT (BEAKER) (test 0.02 K/ L 0.01-0.08 xmwa=927) IMMATURE GRANULOCYTES-RELATIVE PERCENT (BEAKER) 1 % 0-1 (test dvdo=5394) [id number] 02:01:00 Test Item Value Reference Range Comments PARTIAL THROMBOPLASTIN TIME (BEAKER) (test 32.5 seconds 22.5-36.0 iupe=970) BLOOD GAS, [id number] 01:09:00 Test Item Value Reference Range Comments PH ARTERIAL (BEAKER) (test qbzm=007) 7.35 7.35-7.45 PCO2 ARTERIAL (BEAKER) (test zwuy=483) 50 mmHg 35-45 PO2 ARTERIAL (BEAKER) (test svkm=459) 86 mmHg 80-90 O2 SATURATION ARTERIAL (BEAKER) (test gcsg=244) 95.3 % 96.0-97.0 HCO3 ARTERIAL (BEAKER) (test zzun=436) 27 mmol/L 21-29 BASE EXCESS ARTERIAL (BEAKER) (test itjd=886) 1.0 mmol/L -2.0-3.0 PATIENT TEMPERATURE (BEAKER) (test eipk=6664) 38.2 C FIO2 (BEAKER) (test arti=8301) 40.0 % POCT-GLUCOSE [id number] 01:04:00 Test Item Value Reference Range Comments POC-GLUCOSE METER (BEAKER) 199 mg/dL 70-110 TESTED AT [facility] [address] [facility] (test qbwp=5762) [facility] [address] [id number] 00:14:00 Test Item Value Reference Range Comments MAGNESIUM (BEAKER) (test 2.3 mg/dL 1.6-2.6 Specimen slightly hemolyzed prbe=391) [id number] 00:14:00 Test Item Value Reference Range Comments POTASSIUM (BEAKER) (test 3.8 meq/L 3.5-5.1 Specimen slightly hemolyzed uzij=834) CALCIUM, [id number] 00:11:00 Test Item Value Reference Range Comments CALCIUM IONIZED (BEAKER) (test coox=096) 1.06 mmol/L 1.12-1.27 PH, BLOOD (BEAKER) (test kjtc=6129) 7.35 BLOOD GAS, [id number] 00:11:00 Test Item Value Reference Range Comments PH ARTERIAL (BEAKER) (test pfdv=840) 7.33 7.35-7.45 PCO2 ARTERIAL (BEAKER) (test eiqy=844) 53 mmHg 35-45 PO2 ARTERIAL (BEAKER) (test eqmi=702) 58 mmHg 80-90 O2 SATURATION ARTERIAL (BEAKER) (test gpsc=686) 86.1 % 96.0-97.0 HCO3 ARTERIAL (BEAKER) (test mifw=404) 27 mmol/L 21-29 BASE EXCESS ARTERIAL (BEAKER) (test knqy=011) 0.9 mmol/L -2.0-3.0 PATIENT TEMPERATURE (BEAKER) (test phmj=0891) 38.0 C FIO2 (BEAKER) (test zsed=7162) 40.0 % Post extubation ABGPOCT-GLUCOSE [id number] 23:58:00 Test Item Value Reference Range Comments POC-GLUCOSE METER (BEAKER) 202 mg/dL 70-110 TESTED AT [address] (test odal=7621) [place] [address] POCT-GLUCOSE [id number] 23:58:00 Test Item Value Reference Range Comments POC-GLUCOSE METER (BEAKER) 86 mg/dL 70-110 TESTED AT [address] (test vcvc=9597) [place] [id number] BASIC METABOLIC [id number] 22:18:00 Test Item Value Reference Range Comments SODIUM (BEAKER) (test 141 meq/L 136-145 bmco=697) POTASSIUM (BEAKER) (test 3.6 meq/L 3.5-5.1 Specimen slightly izjj=153) hemolyzed CHLORIDE (BEAKER) (test 105 meq/L 98-107 ufqw=600) CO2 (BEAKER) (test 26 meq/L 22-29 zoey=868) BLOOD UREA NITROGEN 31 mg/dL 7-21 (BEAKER) (test rtjz=825) CREATININE (BEAKER) (test 2.09 mg/dL 0.57-1.25 Specimen slightly vrrg=472) hemolyzed GLUCOSE RANDOM (BEAKER) 81 mg/dL 70-105 (test fdys=969) CALCIUM (BEAKER) (test 8.3 mg/dL 8.4-10.2 nxlg=598) EGFR (BEAKER) (test 28 mL/min/1.73 sq m ESTIMATED GFR IS NOT rlld=8039) ACCURATE CREATININE CLEARANCE IN PREDICTING GLOMERULAR FILTRATION RATE. ESTIMATED GFR IS NOT APPLICABLE FOR DIALYSIS PATIENTS. [id number] 22:17:00 Test Item Value Reference Range Comments PHOSPHORUS (BEAKER) (test 5.1 mg/dL 2.3-4.7 Specimen slightly hemolyzed yncp=959) POCT-GLUCOSE [id number] 20:57:00 Test Item Value Reference Range Comments POC-GLUCOSE METER (BEAKER) 90 mg/dL 70-110 TESTED AT [facility] [address] [facility] (test rbia=1744) [facility] [address] BLOOD GAS, [id number] 20:52:00 Test Item Value Reference Range Comments PH ARTERIAL (BEAKER) (test zoas=034) 7.35 7.35-7.45 PCO2 ARTERIAL (BEAKER) (test obwt=793) 49 mmHg 35-45 PO2 ARTERIAL (BEAKER) (test pezl=456) 100 mmHg 80-90 O2 SATURATION ARTERIAL (BEAKER) (test dqop=651) 97.0 % 96.0-97.0 HCO3 ARTERIAL (BEAKER) (test ojrm=310) 26 mmol/L 21-29 BASE EXCESS ARTERIAL (BEAKER) (test fbsh=222) 0.3 mmol/L -2.0-3.0 PATIENT TEMPERATURE (BEAKER) (test firz=1444) 37.7 C FIO2 (BEAKER) (test rvkw=4447) 40.0 % [id number] 18:57:00 Test Item Value Reference Range Comments PARTIAL THROMBOPLASTIN TIME (BEAKER) (test 70.7 seconds 22.5-36.0 cdbp=893) BLOOD GAS, [id number] 16:52:00 Test Item Value Reference Range Comments PH ARTERIAL (BEAKER) (test bsib=714) 7.37 7.35-7.45 PCO2 ARTERIAL (BEAKER) (test dvkb=217) 47 mmHg 35-45 PO2 ARTERIAL (BEAKER) (test dafj=692) 117 mmHg 80-90 O2 SATURATION ARTERIAL (BEAKER) (test lfll=256) 98.0 % 96.0-97.0 HCO3 ARTERIAL (BEAKER) (test wvjx=307) 26 mmol/L 21-29 BASE EXCESS ARTERIAL (BEAKER) (test djvn=024) 0.5 mmol/L -2.0-3.0 PATIENT TEMPERATURE (BEAKER) (test enxy=2963) 37.7 C FIO2 (BEAKER) (test ydvz=0806) 60.0 % GLUCOSE-STAT [id number] 16:52:00 Test Item Value Reference Range Comments GLUCOSE RANDOM (BEAKER) (test mpbl=560) 149 mg/dL 70-110 [id number] 16:22:00 Test Item Value Reference Range Comments PARTIAL THROMBOPLASTIN TIME (BEAKER) (test 197.7 seconds 22.5-36.0 ohym=634) PROTHROMBIN [id number] 16:15:00 Test Item Value Reference Range Comments PROTIME (BEAKER) (test emkm=619) 16.4 seconds 11.7-14.7 INR (BEAKER) (test puaw=254) 1.3 <=5.9 RECOMMENDED COUMADIN/WARFARIN INR THERAPY RANGESSTANDARD DOSE: 2.0 - 3.0 Includes: PROPHYLAXIS forvenous thrombosis, systemic embolization; TREATMENT for venous thrombosis and/or pulmonary embolus.HIGH RISK: Target INR is 2.5-3.5 for patients with mechanical heart valves.[id number] 16:15:00 Test Item Value Reference Range Comments FIBRINOGEN LEVEL (BEAKER) (test wimc=598) 303 mg/dl 225-434 [id number] 16:15:00 Test Item Value Reference Range Comments MAGNESIUM (BEAKER) (test 3.0 mg/dL 1.6-2.6 Specimen moderately hemolyzed fytd=209) [id number] 16:15:00 Test Item Value Reference Range Comments PHOSPHORUS (BEAKER) (test 6.6 mg/dL 2.3-4.7 Specimen moderately hemolyzed lloi=012) BASIC METABOLIC [id number] 16:15:00 Test Item Value Reference Range Comments SODIUM (BEAKER) (test 144 meq/L 136-145 utzi=000) POTASSIUM (BEAKER) (test 4.1 meq/L 3.5-5.1 Specimen moderately yrmy=331) hemolyzed CHLORIDE (BEAKER) (test 106 meq/L 98-107 mmsu=535) CO2 (BEAKER) (test 27 meq/L 22-29 isjp=615) BLOOD UREA NITROGEN 30 mg/dL 7-21 (BEAKER) (test jjpy=603) CREATININE (BEAKER) (test 1.99 mg/dL 0.57-1.25 Specimen moderately eegz=193) hemolyzed GLUCOSE RANDOM (BEAKER) 165 mg/dL 70-105 (test zpmn=602) CALCIUM (BEAKER) (test 8.6 mg/dL 8.4-10.2 rata=278) EGFR (BEAKER) (test 30 mL/min/1.73 sq m ESTIMATED GFR IS NOT yvqe=1737) ACCURATE CREATININE CLEARANCE IN PREDICTING GLOMERULAR FILTRATION RATE. ESTIMATED GFR IS NOT APPLICABLE FOR DIALYSIS PATIENTS. CBC (HEMOGRAM ONLY)[id number] 16:13:00 Test Item Value Reference Range Comments WHITE BLOOD CELL COUNT (BEAKER) (test sbnd=457) 14.5 K/ L 3.5-10.5 RED BLOOD CELL COUNT (BEAKER) (test sdze=152) 3.55 M/ L 3.93-5.22 HEMOGLOBIN (BEAKER) (test txwi=322) 10.7 GM/DL 11.2-15.7 HEMATOCRIT (BEAKER) (test yxgt=699) 34.9 % 34.1-44.9 MEAN CORPUSCULAR VOLUME (BEAKER) (test yfsj=946) 98.3 fL 79.4-94.8 MEAN CORPUSCULAR HEMOGLOBIN (BEAKER) (test 30.1 pg 25.6-32.2 hqwq=165) MEAN CORPUSCULAR HEMOGLOBIN CONC (BEAKER) (test 30.7 GM/DL 32.2-35.5 fmdm=590) RED CELL DISTRIBUTION WIDTH (BEAKER) (test 13.3 % 11.7-14.4 ifyc=928) PLATELET COUNT (BEAKER) (test teny=040) 235 K/CU MM 150-450 MEAN PLATELET VOLUME (BEAKER) (test hwoh=113) 11.0 fL 9.4-12.3 NUCLEATED RED BLOOD CELLS (BEAKER) (test 0 /100 WBC 0-0 wykg=222) LACTIC ACID, ARTERIAL, WHOLE [id number] 16:12:00 Test Item Value Reference Range Comments LACTATE BLOOD ARTERIAL (2) 2.0 mmol/L 0.5-2.2 Specimen slightly hemolyzed (BEAKER) (test bonb=6374) Effective 08/06/2015: Units/Reference Range ChangeNew: 0.5-2.2 mmol/L Previous: 5 -20 mg/dLCALCIUM, [id number] 15:54:00 Test Item Value Reference Range Comments CALCIUM IONIZED (BEAKER) (test tgom=883) 1.14 mmol/L 1.12-1.27 PH, BLOOD (BEAKER) (test bcsq=6813) 7.24 SODIUM NA-STAT [id number] 15:54:00 Test Item Value Reference Range Comments SODIUM (BEAKER) (test wobu=340) 143 meq/L 135-148 POTASSIUM-STAT [id number] 15:54:00 Test Item Value Reference Range Comments POTASSIUM (BEAKER) (test irqf=682) 3.9 meq/L 3.6-5.5 BLOOD GAS, [id number] 15:54:00 Test Item Value Reference Range Comments PH ARTERIAL (BEAKER) (test mcik=897) 7.26 7.35-7.45 PCO2 ARTERIAL (BEAKER) (test mrbh=805) 69 mmHg 35-45 PO2 ARTERIAL (BEAKER) (test pkqz=794) 74 mmHg 80-90 O2 SATURATION ARTERIAL (BEAKER) (test dedd=810) 93.4 % 96.0-97.0 HCO3 ARTERIAL (BEAKER) (test ukrj=788) 31 mmol/L 21-29 BASE EXCESS ARTERIAL (BEAKER) (test jfjs=644) 2.0 mmol/L -2.0-3.0 PATIENT TEMPERATURE (BEAKER) (test jcor=4295) 35.6 C FIO2 (BEAKER) (test syfs=6759) 50.0 % GLUCOSE-STAT [id number] 15:54:00 Test Item Value Reference Range Comments GLUCOSE RANDOM (BEAKER) (test scoz=026) 169 mg/dL 70-110 HGB/HCT (H&H) - STAT [id number] 15:54:00 Test Item Value Reference Range Comments HEMOGLOBIN (STEVAN) (test wdex=800) 11.7 g/dL 12.0-15.0 HEMATOCRIT (DAMASOAKER) (test zwbn=589) 34.0 % 36.0-45.0 RAD, CHEST, 1 VIEW, NON [id number] 15:49:00Reason for exam:->sp PCI/ intubatedFINAL REPORT TECHNIQUE: Frontal chest radiograph dated 07/19/2017. CLINICAL HISTORY: PCI, intubated COMPARISON STUDY: Chest radiograph performed earlier the same day. IMPRESSION:Impella device has been inserted. Remaining life support tubes are unchanged. No focal consolidation.Prominent interstitial lung markings are unchanged. No pleural effusion or pneumothorax. Cardiomediastinal silhouette is normal in size. No pulmonary edema. Bones are osteopenic. No fracture. Signed: Dawson Noel MDReport Verified Date/Time: 07/19/2017 15:49:37 Reading Location: [facility] RadiologyReading Room [id number] 14:13:00 Test Item Value Reference Range Comments ACTIVATED CLOTTING TIME 131 sec TESTED AT [facility] [address] ([place]) (test acbn=309) [facility] [address] TROPONIN [id number] 12:32:00 Test Item Value Reference Range Comments TROPONIN I (STEVAN) (test qhri=406) 119.79 ng/mL 0.00-0.03 Troponin I (TnI) levels must be interpreted [...] failure, acidosis, acute neurological disease, and persistent tachyarrhythmia.CREATINE KINASE (CK), TOTAL AND [id number] 12:26:00 Test Item Value Reference Range Comments CREATINE KINASE TOTAL (DAMASOAKER) (test cdns=878) 2405 U/L 29-200 CREATINE KINASE-MB (DAMASOAKER) (test qzts=365) 65.6 ng/mL 0.0-6.6 CREATINE KINASE-MB INDEX (BEAKER) (test ciul=283) 2.7 % CK-MB Reference Range:<6.7 Normal6.7-10.0 Borderline>10.0 AbnormalPOCT-GLUCOSE [id number] 12:20:00 Test Item Value Reference Range Comments POC-GLUCOSE METER (BEAKER) 183 mg/dL 70-110 TESTED AT [address] (test dwqd=2986) [facility] [address] [id number] 12:03:00 Test Item Value Reference Range Comments MAGNESIUM (BEAKER) (test tqtc=219) 2.8 mg/dL 1.6-2.6 [id number] 12:03:00 Test Item Value Reference Range Comments PHOSPHORUS (BEAKER) (test yyrs=385) 5.3 mg/dL 2.3-4.7 BASIC METABOLIC [id number] 12:03:00 Test Item Value Reference Range Comments SODIUM (BEAKER) (test 143 meq/L 136-145 rkjz=639) POTASSIUM (BEAKER) (test 3.8 meq/L 3.5-5.1 xbkg=075) CHLORIDE (BEAKER) (test 106 meq/L 98-107 nwrw=885) CO2 (BEAKER) (test 27 meq/L 22-29 roso=062) BLOOD UREA NITROGEN 29 mg/dL 7-21 (BEAKER) (test aimf=102) CREATININE (BEAKER) (test 1.92 mg/dL 0.57-1.25 yvoc=657) GLUCOSE RANDOM (BEAKER) 188 mg/dL 70-105 (test oidi=512) CALCIUM (BEAKER) (test 8.7 mg/dL 8.4-10.2 iepg=309) EGFR (BEAKER) (test 31 mL/min/1.73 sq m ESTIMATED GFR IS NOT cevj=5537) ACCURATE CREATININE CLEARANCE IN PREDICTING GLOMERULAR FILTRATION RATE. ESTIMATED GFR IS NOT APPLICABLE FOR DIALYSIS PATIENTS. POCT-GLUCOSE [id number] 11:19:00 Test Item Value Reference Range Comments POC-GLUCOSE METER (BEAKER) 190 mg/dL 70-110 TESTED AT [place] [id number] [facility] (test hfgb=4190) [facility] [address] POCT-GLUCOSE [id number] 10:12:00 Test Item Value Reference Range Comments POC-GLUCOSE METER (BEAKER) 197 mg/dL 70-110 TESTED AT [address] (test dtnj=9648) [place] [id number] POCT-GLUCOSE [id number] 09:21:00 Test Item Value Reference Range Comments POC-GLUCOSE METER (BEAKER) 221 mg/dL 70-110 TESTED AT [address] (test pmss=0887) [place] [address] LACTIC ACID, ARTERIAL, WHOLE [id number] 09:19:00 Test Item Value Reference Range Comments LACTATE BLOOD ARTERIAL (2) (BEAKER) (test 2.4 mmol/L 0.5-2.2 xwmm=3391) Effective 08/06/2015: Units/Reference Range ChangeNew: 0.5-2.2 mmol/L Previous: 5 -20 mg/dLPROTHROMBIN TIME/[id number] 08:44:00 Test Item Value Reference Range Comments PROTIME (BEAKER) (test yvph=537) 14.4 seconds 11.7-14.7 INR (BEAKER) (test oiew=812) 1.1 <=5.9 RECOMMENDED COUMADIN/WARFARIN INR THERAPY RANGESSTANDARD DOSE: 2.0 - 3.0 Includes: PROPHYLAXIS forvenous thrombosis, systemic embolization; TREATMENT for venous thrombosis and/or pulmonary embolus.HIGH RISK: Target INR is 2.5-3.5 for patients with mechanical heart valves.[id number] 08:44:00 Test Item Value Reference Range Comments FIBRINOGEN LEVEL (BEAKER) (test zwff=024) 367 mg/dl 225-434 [id number] 08:44:00 Test Item Value Reference Range Comments PARTIAL THROMBOPLASTIN TIME (BEAKER) (test 30.0 seconds 22.5-36.0 wvvx=825) POCT-GLUCOSE [id number] 07:52:00 Test Item Value Reference Range Comments POC-GLUCOSE METER (BEAKER) 215 mg/dL 70-110 TESTED AT [address] (test bbaj=9396) [place] [id number] CT, CHEST, WITHOUT [id number] 07:50:00KEEP PATIENT ON CT TABLE. CALL RADIOLOGIST TO REVIEW FILMS BEFORE TAKING PATIENT OFF TABLE. MAY NEEDTO GIVE CONTRAST PENDING RADIOLOGIST READ.FINAL REPORT TECHNIQUE : CT scan of the chest WITHOUT intravenous contrast. Dose modulation, iterative reconstruction, and/or weight-based adjustment of the mA/kV was utilized to reduce the radiation dose to as low as reasonably achievable. INDICATION: 71- year-old woman with abnormal chest radiograph. COMPARISON: Chest radiograph from earlier same date, chest CTA 06/12/2016. FINDINGS: ABSENCE OF INTRAVENOUS CONTRAST DECREASES SENSITIVITY FOR DETECTION OF FOCAL LESIONS AND VASCULAR PATHOLOGY. LINES/TUBES: Endotracheal tube terminates approximately 3.1 cm above the toro. Intra-aortic balloon pump in place, the radiopaque marker terminates in the distal aortic arch, distal tothe left subclavian artery. Partially visualized nasogastric/orogastric tube courses into the stomach. LUNGS AND AIRWAYS: Central airways are patent. Moderate centrilobular emphysematous changes. Consolidative opacities in the dependent portions of both lower lobes adjacent to the pleural effusions. Mild groundglass opacities in the lingula. Unchanged benign 3 mm subpleural nodule in the left lower lobe ( axial lung window series image 33). PLEURA: Trace [...] TISSUES AND BONES: Unremarkable. UPPER ABDOMEN: Unremarkable. IMPRESSION:Consolidative opacities in both lower lobes likely represent atelectasis,however superimposed pneumonia/aspiration cannot be excluded. Focal groundglass opacities in the lingula, atelectasis versus infection/inflammation. Moderate emphysema. Increased aneurysmal dilatation of the descending thoracic aorta above the level of the diaphragmatic crura. Signed: Lynnette Castro MDReport Verified Date /Time: 07/19/2017 07:50:43 Reading Location: [facility] Diagnostic Imaging Reading Room - [place] [address] Electronically signed by: LYNNETTE CASTRO MD on 07:50 AMPOCT-GLUCOSE [id number] 07:37:00 Test Item Value Reference Range Comments POC-GLUCOSE METER (BEAKER) 225 mg/dL 70-110 TESTED AT [address] (test swyo=0359) [facility] [address] RAD, CHEST, 1 VIEW, NON [id number] 04:04:00Reason for exam:->v tach/ iabpShould this be performed at the bedside?->YesFINAL REPORT RAD, CHEST, 1 VIEW, NON DEPT INDICATION: v tach/iabp COMPARISON:Prior day's exam TECHNIQUE: Portable frontal view of the chest. IMPRESSION: Lines and tubes stable.There is a new contour abnormality of the right side of the mediastinum. This could be artifactual although aortic dissection is not excluded. Recommend CTA of the chest.Stable cardiomegaly.Stable interstitial opacities.No pneumothorax.No acute osseous abnormality. Findings were communicated to Dr. Carney at the time of this dictation. Signed: Hasmukh Silvestre MDReport Verified Date/Time: 07/19/2017 04:04:19 Reading Location: [address] Ortho Consult Reading Room [id number] 03:59:00 Test Item Value Reference Range Comments PHOSPHORUS (BEAKER) (test lpiy=838) 4.4 mg/dL 2.3-4.7 [id number] 03:59:00 Test Item Value Reference Range Comments MAGNESIUM (BEAKER) (test zbfu=589) 2.5 mg/dL 1.6-2.6 BASIC METABOLIC [id number] 03:59:00 Test Item Value Reference Range Comments SODIUM (BEAKER) (test 145 meq/L 136-145 lzod=890) POTASSIUM (BEAKER) (test 3.6 meq/L 3.5-5.1 jhhw=636) CHLORIDE (BEAKER) (test 106 meq/L 98-107 zynm=395) CO2 (BEAKER) (test 25 meq/L 22-29 tbvh=270) BLOOD UREA NITROGEN 28 mg/dL 7-21 (BEAKER) (test sudg=991) CREATININE (BEAKER) (test 1.93 mg/dL 0.57-1.25 uddd=405) GLUCOSE RANDOM (BEAKER) 216 mg/dL 70-105 (test qxbt=618) CALCIUM (BEAKER) (test 9.0 mg/dL 8.4-10.2 zean=143) EGFR (BEAKER) (test 31 mL/min/1.73 sq m ESTIMATED GFR IS NOT hufd=7375) ACCURATE CREATININE CLEARANCE IN PREDICTING GLOMERULAR FILTRATION RATE. ESTIMATED GFR IS NOT APPLICABLE FOR DIALYSIS PATIENTS. B-TYPE NATRIURETIC FACTOR (BNP)2017-07-19 03:10:00 Test Item Value Reference Range Comments B-TYPE NATRIURETIC PEPTIDE (BEAKER) (test 2662 pg/mL 0-100 nhtq=120) HEPATIC FUNCTION [id number] 03:04:00 Test Item Value Reference Range Comments TOTAL PROTEIN (BEAKER) (test clfj=424) 6.6 gm/dL 6.0-8.3 ALBUMIN (BEAKER) (test taxx=2778) 3.5 g/dL 3.5-5.0 BILIRUBIN TOTAL (BEAKER) (test piut=276) 0.4 mg/dL 0.2-1.2 BILIRUBIN DIRECT (BEAKER) (test urno=131) 0.2 mg/dL 0.1-0.5 ALKALINE PHOSPHATASE (BEAKER) (test bspu=459) 57 U/L 40-150 AST (SGOT) (BEAKER) (test oezq=278) 359 U/L 5-34 ALT (SGPT) (BEAKER) (test enmf=562) 99 U/L 6-55 CREATINE KINASE (CK)2017-07-19 03:04:00 Test Item Value Reference Range Comments CREATINE KINASE TOTAL (BEAKER) (test awbs=996) 2888 U/L 29-200 CBC W/PLT COUNT & AUTO [id number] 02:56:00 Test Item Value Reference Range Comments WHITE BLOOD CELL COUNT (BEAKER) (test rpei=564) 19.0 K/ L 3.5-10.5 RED BLOOD CELL COUNT (BEAKER) (test gwic=410) 3.69 M/ L 3.93-5.22 HEMOGLOBIN (BEAKER) (test qznf=577) 11.2 GM/DL 11.2-15.7 HEMATOCRIT (BEAKER) (test bziy=946) 35.3 % 34.1-44.9 MEAN CORPUSCULAR VOLUME (BEAKER) (test wzvs=459) 95.7 fL 79.4-94.8 MEAN CORPUSCULAR HEMOGLOBIN (BEAKER) (test 30.4 pg 25.6-32.2 govw=503) MEAN CORPUSCULAR HEMOGLOBIN CONC (BEAKER) (test 31.7 GM/DL 32.2-35.5 txcj=243) RED CELL DISTRIBUTION WIDTH (BEAKER) (test 13.1 % 11.7-14.4 ovna=378) PLATELET COUNT (BEAKER) (test njyl=753) 253 K/CU MM 150-450 MEAN PLATELET VOLUME (BEAKER) (test gxpp=266) 10.0 fL 9.4-12.3 NUCLEATED RED BLOOD CELLS (BEAKER) (test 0 /100 WBC 0-0 onnh=985) NEUTROPHILS RELATIVE PERCENT (BEAKER) (test 86 % rqxz=250) LYMPHOCYTES RELATIVE PERCENT (BEAKER) (test 6 % cxpg=113) MONOCYTES RELATIVE PERCENT (BEAKER) (test 7 % ptcy=755) EOSINOPHILS RELATIVE PERCENT (BEAKER) (test 0 % mxzx=256) BASOPHILS RELATIVE PERCENT (BEAKER) (test 0 % onar=763) NEUTROPHILS ABSOLUTE COUNT (BEAKER) (test 16.34 K/ L 1.56-6.13 cjoa=715) LYMPHOCYTES ABSOLUTE COUNT (BEAKER) (test 1.15 K/ L 1.18-3.74 cgpg=246) MONOCYTES ABSOLUTE COUNT (BEAKER) (test 1.39 K/ L 0.24-0.36 geqv=318) EOSINOPHILS ABSOLUTE COUNT (BEAKER) (test 0.00 K/ L 0.04-0.36 ijxa=146) BASOPHILS ABSOLUTE COUNT (BEAKER) (test 0.02 K/ L 0.01-0.08 nsdt=077) IMMATURE GRANULOCYTES-RELATIVE PERCENT (BEAKER) 0 % 0-1 (test cgyf=1586) CALCIUM, [id number] 02:49:00 Test Item Value Reference Range Comments CALCIUM IONIZED (BEAKER) (test dcnk=904) 1.14 mmol/L 1.12-1.27 PH, BLOOD (BEAKER) (test nfuw=4229) 7.36 CBC (HEMOGRAM ONLY)2017-07-19 02:48:00 Test Item Value Reference Range Comments WHITE BLOOD CELL COUNT (BEAKER) (test euzo=710) 19.0 K/ L 3.5-10.5 RED BLOOD CELL COUNT (BEAKER) (test fhnd=882) 3.69 M/ L 3.93-5.22 HEMOGLOBIN (BEAKER) (test brmf=822) 11.2 GM/DL 11.2-15.7 HEMATOCRIT (BEAKER) (test wslm=414) 35.3 % 34.1-44.9 MEAN CORPUSCULAR VOLUME (BEAKER) (test satb=754) 95.7 fL 79.4-94.8 MEAN CORPUSCULAR HEMOGLOBIN (BEAKER) (test 30.4 pg 25.6-32.2 zwyx=253) MEAN CORPUSCULAR HEMOGLOBIN CONC (BEAKER) (test 31.7 GM/DL 32.2-35.5 hsjg=745) RED CELL DISTRIBUTION WIDTH (BEAKER) (test 13.1 % 11.7-14.4 xhle=933) PLATELET COUNT (BEAKER) (test xyqg=595) 253 K/CU MM 150-450 MEAN PLATELET VOLUME (BEAKER) (test wblb=376) 10.0 fL 9.4-12.3 NUCLEATED RED BLOOD CELLS (BEAKER) (test 0 /100 WBC 0-0 kcmk=078) BLOOD GAS, [id number] 02:48:00 Test Item Value Reference Range Comments PH ARTERIAL (BEAKER) (test kydk=959) 7.35 7.35-7.45 PCO2 ARTERIAL (BEAKER) (test zoaj=903) 55 mmHg 35-45 PO2 ARTERIAL (BEAKER) (test vxbi=632) 73 mmHg 80-90 O2 SATURATION ARTERIAL (BEAKER) (test ftga=155) 93.3 % 96.0-97.0 HCO3 ARTERIAL (BEAKER) (test lxsn=776) 30 mmol/L 21-29 BASE EXCESS ARTERIAL (BEAKER) (test bvba=465) 3.1 mmol/L -2.0-3.0 PATIENT TEMPERATURE (BEAKER) (test qunh=2786) 37.5 C FIO2 (BEAKER) (test zfpc=9257) 40.0 % POCT-GLUCOSE [id number] 02:21:00 Test Item Value Reference Range Comments POC-GLUCOSE METER (BEAKER) 184 mg/dL 70-110 TESTED AT [facility] [address] [facility] (test agky=8006) [facility] [address] POCT-GLUCOSE [id number] 01:15:00 Test Item Value Reference Range Comments POC-GLUCOSE METER (BEAKER) 173 mg/dL 70-110 TESTED AT [address] (test vila=0524) [facility] [address] [id number] 00:55:00 Test Item Value Reference Range Comments PHOSPHORUS (BEAKER) (test fjvr=633) 3.3 mg/dL 2.3-4.7 [id number] 00:55:00 Test Item Value Reference Range Comments MAGNESIUM (BEAKER) (test ddip=128) 1.8 mg/dL 1.6-2.6 BASIC METABOLIC [id number] 00:55:00 Test Item Value Reference Range Comments SODIUM (BEAKER) (test 143 meq/L 136-145 upik=256) POTASSIUM (BEAKER) (test 3.9 meq/L 3.5-5.1 lmtk=565) CHLORIDE (BEAKER) (test 106 meq/L 98-107 hxky=629) CO2 (BEAKER) (test 27 meq/L 22-29 jgmd=046) BLOOD UREA NITROGEN 27 mg/dL 7-21 (BEAKER) (test eeoh=294) CREATININE (BEAKER) (test 1.90 mg/dL 0.57-1.25 qyfz=731) GLUCOSE RANDOM (BEAKER) 181 mg/dL 70-105 (test qfmr=120) CALCIUM (BEAKER) (test 8.9 mg/dL 8.4-10.2 gnzf=420) EGFR (BEAKER) (test 32 mL/min/1.73 sq m ESTIMATED GFR IS NOT vmye=8516) ACCURATE CREATININE CLEARANCE IN PREDICTING GLOMERULAR FILTRATION RATE. ESTIMATED GFR IS NOT APPLICABLE FOR DIALYSIS PATIENTS. POCT-GLUCOSE [id number] 00:11:00 Test Item Value Reference Range Comments POC-GLUCOSE METER (BEAKER) 177 mg/dL 70-110 TESTED AT [address] (test vpxt=6682) [facility] [address] POCT-GLUCOSE [id number] 23:25:00 Test Item Value Reference Range Comments POC-GLUCOSE METER (BEAKER) 206 mg/dL 70-110 TESTED AT [address] (test rnjy=8391) [facility] [address] POCT-GLUCOSE [id number] 22:19:00 Test Item Value Reference Range Comments POC-GLUCOSE METER (BEAKER) 243 mg/dL 70-110 TESTED AT [address] (test fwaq=2729) [facility] [address] POCT-GLUCOSE [id number] 21:37:00 Test Item Value Reference Range Comments POC-GLUCOSE METER (BEAKER) 235 mg/dL 70-110 TESTED AT [address] (test ukdp=5476) [facility] [address] POCT-GLUCOSE [id number] 20:04:00 Test Item Value Reference Range Comments POC-GLUCOSE METER (BEAKER) 216 mg/dL 70-110 TESTED AT [address] (test tjzg=7872) [facility] [address] POCT-GLUCOSE [id number] 18:40:00 Test Item Value Reference Range Comments POC-GLUCOSE METER (BEAKER) 271 mg/dL 70-110 TESTED AT [address] (test ppye=6228) [facility] [address] [id number] 18:32:00 Test Item Value Reference Range Comments MAGNESIUM (BEAKER) (test 1.9 mg/dL 1.6-2.6 Specimen slightly hemolyzed bjzc=646) [id number] 18:32:00 Test Item Value Reference Range Comments PHOSPHORUS (BEAKER) (test 3.1 mg/dL 2.3-4.7 Specimen slightly hemolyzed kwyg=171) BASIC METABOLIC [id number] 18:32:00 Test Item Value Reference Range Comments SODIUM (BEAKER) (test 142 meq/L 136-145 djfg=917) POTASSIUM (BEAKER) (test 3.9 meq/L 3.5-5.1 Specimen slightly xixp=952) hemolyzed CHLORIDE (BEAKER) (test 107 meq/L 98-107 uxop=455) CO2 (BEAKER) (test 24 meq/L 22-29 zkta=107) BLOOD UREA NITROGEN 22 mg/dL 7-21 (BEAKER) (test boav=387) CREATININE (BEAKER) (test 1.55 mg/dL 0.57-1.25 Specimen slightly xira=090) hemolyzed GLUCOSE RANDOM (BEAKER) 242 mg/dL 70-105 (test awjf=511) CALCIUM (BEAKER) (test 8.8 mg/dL 8.4-10.2 gbro=978) EGFR (BEAKER) (test 40 mL/min/1.73 sq m ESTIMATED GFR IS NOT chma=0311) ACCURATE CREATININE CLEARANCE IN PREDICTING GLOMERULAR FILTRATION RATE. ESTIMATED GFR IS NOT APPLICABLE FOR DIALYSIS PATIENTS. BLOOD GAS, [id number] 18:24:00 Test Item Value Reference Range Comments PH ARTERIAL (BEAKER) (test royl=570) 7.34 7.35-7.45 PCO2 ARTERIAL (BEAKER) (test welm=089) 51 mmHg 35-45 PO2 ARTERIAL (BEAKER) (test gvif=946) 57 mmHg 80-90 O2 SATURATION ARTERIAL (BEAKER) (test iqlz=412) 87.5 % 96.0-97.0 HCO3 ARTERIAL (BEAKER) (test lsis=973) 27 mmol/L 21-29 BASE EXCESS ARTERIAL (BEAKER) (test qktv=642) 1.0 mmol/L -2.0-3.0 PATIENT TEMPERATURE (BEAKER) (test zswu=6089) 37.2 C FIO2 (BEAKER) (test ppve=5611) 40.0 % POCT-GLUCOSE [id number] 17:14:00 Test Item Value Reference Range Comments POC-GLUCOSE METER (BEAKER) 299 mg/dL 70-110 TESTED AT [address] (test cxpy=6374) [place] [address] LACTIC ACID, ARTERIAL, WHOLE [id number] 16:37:00 Test Item Value Reference Range Comments LACTATE BLOOD ARTERIAL (2) 2.9 mmol/L 0.5-2.2 Specimen slightly hemolyzed (BEAKER) (test dmsn=6468) Effective 08/06/2015: Units/Reference Range ChangeNew: 0.5-2.2 mmol/L Previous: 5 -20 mg/[id number] 15:45:00 Test Item Value Reference Range Comments GLUCOSE RANDOM (BEAKER) (test ibzm=968) 439 mg/dL 70-105 If last glucose was less than 500, may do bedside glucose instead of serum glucose.POCT-GLUCOSE [id number] 15:21:00 Test Item Value Reference Range Comments POC-GLUCOSE METER (BEAKER) 374 mg/dL 70-110 Notified PAULA BERGER/TESTED AT [facility] (test tluj=3004) [address] [place] [address] [id number] 15:14:00 Test Item Value Reference Range Comments POTASSIUM (BEAKER) (test tgwu=103) 4.0 meq/L 3.5-5.1 If last glucose was less than 500, may do bedside glucose instead of serum glucose.URINALYSIS W/ [id number] 15:03:00 Test Item Value Reference Range Comments COLOR (BEAKER) (test yanu=393) Yellow CLARITY (BEAKER) (test vgmz=815) Clear SPECIFIC GRAVITY UA (BEAKER) (test viuv=728) 1.050 1.001-1.035 PH UA (BEAKER) (test asar=697) 5.5 5.0-8.0 PROTEIN UA (BEAKER) (test ngco=998) 50 mg/dL Negative GLUCOSE UA (BEAKER) (test npdl=183) >1000 mg/dL Negative KETONES UA (BEAKER) (test uhzn=783) Negative Negative BILIRUBIN UA (BEAKER) (test yfec=626) Negative Negative BLOOD UA (BEAKER) (test qncn=147) Moderate Negative NITRITE UA (BEAKER) (test ooyh=590) Negative Negative LEUKOCYTE ESTERASE UA (BEAKER) (test uupw=782) Negative Negative UROBILINOGEN UA (BEAKER) (test fqxl=279) 0.2 mg/dL 0.2-1.0 RBC UA (BEAKER) (test rgls=622) 16 /HPF WBC UA (BEAKER) (test qrmb=419) 11 /HPF BACTERIA (BEAKER) (test vejm=380) Rare MUCUS (BEAKER) (test ysgp=8475) Rare SQUAMOUS EPITHELIAL (BEAKER) (test vncj=583) 1 /HPF SOURCE(BEAKER) (test cyaz=4636) U/S, RENAL, [id number] 14:36:00Reason for exam:->acute renal failure , hydronephrosisShould this be performed at the bedside?->YesFINAL REPORT Renal ultrasound dated 07/18/2017 Comment: Real-time transabdominal renal ultrasound was performed.Right kidney measures 10 6 x 5.0 x [...] vein bilaterally. Impression: 1. Somewhat atrophic left kidney.2. Right renal cyst.3. No hydronephrosis. Signed: Virginia Diaz MDReport Verified Date/Time: 07/18/2017 14:36:40 Reading Location: [address] Ultrasound Reading Room Electronically signed by: VIRGINIA DIAZ M.D. on 02:36 PMT4, [id number] 14:31:00 Test Item Value Reference Range Comments FREE T4 (BEAKER) (test tamg=581) 1.13 ng/dL 0.70-1.48 BLOOD GAS, [id number] 14:01:00 Test Item Value Reference Range Comments PH ARTERIAL (BEAKER) (test zcvy=291) 7.42 7.35-7.45 PCO2 ARTERIAL (BEAKER) (test xqah=511) 42 mmHg 35-45 PO2 ARTERIAL (BEAKER) (test zrpw=127) 66 mmHg 80-90 O2 SATURATION ARTERIAL (BEAKER) (test pecp=558) 93.5 % 96.0-97.0 HCO3 ARTERIAL (BEAKER) (test uqtx=328) 27 mmol/L 21-29 BASE EXCESS ARTERIAL (BEAKER) (test flsh=149) 2.1 mmol/L -2.0-3.0 PATIENT TEMPERATURE (BEAKER) (test ppgj=0345) 36.9 C FIO2 (BEAKER) (test vlaj=6214) 40.0 % HEMOGLOBIN [id number] 13:57:00 Test Item Value Reference Range Comments HEMOGLOBIN A1C (BEAKER) (test jhfu=176) 9.8 % 4.3-6.1 SODIUM, RANDOM [id number] 13:49:00 Test Item Value Reference Range Comments SODIUM URINE (BEAKER) (test dqtj=648) 22 meq/L Reference Range: No NormalsTSH/FREE T4 IF [id number] 13:49:00 Test Item Value Reference Range Comments THYROID STIMULATING HORMONE (BEAKER) (test 0.27 uIU/mL 0.35-4.94 nuxh=983) POCT-GLUCOSE [id number] 13:47:00 Test Item Value Reference Range Comments POC-GLUCOSE METER (BEAKER) 398 mg/dL 70-110 TESTED AT [facility] [address] (test hfjs=1249) [facility] [address] CREATININE, RANDOM [id number] 13:43:00 Test Item Value Reference Range Comments CREATININE URINE (BEAKER) (test uhtu=516) 85.4 mg/dL Reference Range: No NormalsPROTEIN, RANDOM [id number] 13:43:00 Test Item Value Reference Range Comments PROTEIN, URINE (BEAKER) (test mrrg=7895) 75 mg/dL 0-14 B-TYPE NATRIURETIC FACTOR (BNP)2017-07-18 13:17:00 Test Item Value Reference Range Comments B-TYPE NATRIURETIC PEPTIDE (BEAKER) (test 1847 pg/mL 0-100 aiey=367) BASIC METABOLIC [id number] 13:13:00 Test Item Value Reference Range Comments SODIUM (BEAKER) (test 138 meq/L 136-145 niey=523) POTASSIUM (BEAKER) (test 4.8 meq/L 3.5-5.1 dztk=046) CHLORIDE (BEAKER) (test 101 meq/L 98-107 jqsn=981) CO2 (BEAKER) (test 26 meq/L 22-29 iinf=276) BLOOD UREA NITROGEN 21 mg/dL 7-21 (BEAKER) (test ffhy=971) CREATININE (BEAKER) (test 1.62 mg/dL 0.57-1.25 jjss=302) GLUCOSE RANDOM (BEAKER) 527 mg/dL 70-105 (test rtxd=899) CALCIUM (BEAKER) (test 8.9 mg/dL 8.4-10.2 ekmy=668) EGFR (BEAKER) (test 38 mL/min/1.73 sq m ESTIMATED GFR IS NOT xzff=2546) ACCURATE CREATININE CLEARANCE IN PREDICTING GLOMERULAR FILTRATION RATE. ESTIMATED GFR IS NOT APPLICABLE FOR DIALYSIS PATIENTS. If last glucose was less than 500, may do bedside glucose instead of serum glucose.[id number] 13:12:00 Test Item Value Reference Range Comments MAGNESIUM (BEAKER) (test nlze=097) 1.9 mg/dL 1.6-2.6 If last glucose was less than 500, may do bedside glucose instead of serum glucose.[id number] 13:12:00 Test Item Value Reference Range Comments LIPASE (BEAKER) (test ezdy=792) 106 U/L 8-78 If last glucose was less than 500, may do bedside glucose instead of serum glucose.[id number] 13:11:00 Test Item Value Reference Range Comments PHOSPHORUS (BEAKER) (test kmke=723) 3.3 mg/dL 2.3-4.7 If last glucose was less than 500, may do bedside glucose instead of serum glucose.POCT-GLUCOSE [id number] 12:49:00 Test Item Value Reference Range Comments POC-GLUCOSE METER (BEAKER) 498 mg/dL 70-110 Notified PAULA BERGER/TESTED AT [facility] (test zaxs=6227) [address] [place] [address] LACTIC ACID, VENOUS, WHOLE [id number] 12:11:00 Test Item Value Reference Range Comments LACTATE BLOOD VENOUS (2) (BEAKER) (test 3.8 mmol/L 0.5-2.2 jzop=8916) Effective 08/06/2015: Units/Reference Range ChangeNew: 0.5-2.2 mmol/L Previous: 5 -20 mg/[id number] 12:10:00 Test Item Value Reference Range Comments PROCALCITONIN (BEAKER) (test pgyo=4257) 3.80 ng/mL <0.05 SEPSIS RISK (ng/mL)Low: 0.05-0.50Intermediate: 0.51-2.00High: & gt;=2.01CBC W/PLT COUNT & AUTO [id number] 12:10:00 Test Item Value Reference Range Comments WHITE BLOOD CELL COUNT (BEAKER) (test ewib=242) 11.2 K/ L 3.5-10.5 RED BLOOD CELL COUNT (BEAKER) (test dvmv=841) 3.98 M/ L 3.93-5.22 HEMOGLOBIN (BEAKER) (test ltzr=853) 12.0 GM/DL 11.2-15.7 HEMATOCRIT (BEAKER) (test qeza=694) 38.5 % 34.1-44.9 MEAN CORPUSCULAR VOLUME (BEAKER) (test rycp=936) 96.7 fL 79.4-94.8 MEAN CORPUSCULAR HEMOGLOBIN (BEAKER) (test 30.2 pg 25.6-32.2 bxbn=419) MEAN CORPUSCULAR HEMOGLOBIN CONC (BEAKER) (test 31.2 GM/DL 32.2-35.5 nlcp=650) RED CELL DISTRIBUTION WIDTH (BEAKER) (test 13.1 % 11.7-14.4 krbf=183) PLATELET COUNT (BEAKER) (test cpbp=058) 222 K/CU MM 150-450 MEAN PLATELET VOLUME (BEAKER) (test okqd=634) 10.2 fL 9.4-12.3 NUCLEATED RED BLOOD CELLS (BEAKER) (test 0 /100 WBC 0-0 tdxz=329) NEUTROPHILS RELATIVE PERCENT (BEAKER) (test 96 % xvuy=803) LYMPHOCYTES RELATIVE PERCENT (BEAKER) (test 2 % hqtn=862) MONOCYTES RELATIVE PERCENT (BEAKER) (test 2 % ebxl=718) EOSINOPHILS RELATIVE PERCENT (BEAKER) (test 0 % vaaf=841) BASOPHILS RELATIVE PERCENT (BEAKER) (test 0 % czdd=080) NEUTROPHILS ABSOLUTE COUNT (BEAKER) (test 10.72 K/ L 1.56-6.13 sygc=462) LYMPHOCYTES ABSOLUTE COUNT (BEAKER) (test 0.24 K/ L 1.18-3.74 qalu=724) MONOCYTES ABSOLUTE COUNT (BEAKER) (test 0.22 K/ L 0.24-0.36 kokx=878) EOSINOPHILS ABSOLUTE COUNT (BEAKER) (test 0.00 K/ L 0.04-0.36 tsvn=245) BASOPHILS ABSOLUTE COUNT (BEAKER) (test 0.01 K/ L 0.01-0.08 ggit=850) IMMATURE GRANULOCYTES-RELATIVE PERCENT (BEAKER) 0 % 0-1 (test vini=4804) BASIC METABOLIC [id number] 11:35:00 Test Item Value Reference Range Comments SODIUM (BEAKER) (test 136 meq/L 136-145 egte=961) POTASSIUM (BEAKER) (test 4.8 meq/L 3.5-5.1 qpss=775) CHLORIDE (BEAKER) (test 99 meq/L 98-107 hofr=137) CO2 (BEAKER) (test 25 meq/L 22-29 lbyn=421) BLOOD UREA NITROGEN 19 mg/dL 7-21 (BEAKER) (test ltjr=799) CREATININE (BEAKER) (test 1.61 mg/dL 0.57-1.25 wwcl=761) GLUCOSE RANDOM (BEAKER) 568 mg/dL 70-105 (test fbmo=628) CALCIUM (BEAKER) (test 8.9 mg/dL 8.4-10.2 mxbt=835) EGFR (BEAKER) (test 38 mL/min/1.73 sq m ESTIMATED GFR IS NOT tzuy=3691) ACCURATE CREATININE CLEARANCE IN PREDICTING GLOMERULAR FILTRATION RATE. ESTIMATED GFR IS NOT APPLICABLE FOR DIALYSIS PATIENTS. BLOOD GAS, [id number] 10:57:00 Test Item Value Reference Range Comments PH ARTERIAL (BEAKER) (test vurz=223) 7.36 7.35-7.45 PCO2 ARTERIAL (BEAKER) (test aneo=398) 47 mmHg 35-45 PO2 ARTERIAL (BEAKER) (test xoye=014) 78 mmHg 80-90 O2 SATURATION ARTERIAL (BEAKER) (test stpw=140) 95.0 % 96.0-97.0 HCO3 ARTERIAL (BEAKER) (test ljic=237) 26 mmol/L 21-29 BASE EXCESS ARTERIAL (BEAKER) (test eles=420) 0.4 mmol/L -2.0-3.0 PATIENT TEMPERATURE (BEAKER) (test dmcu=8176) 37.0 C FIO2 (BEAKER) (test vyxp=3524) 100.0 % RAD, CHEST, 1 VIEW, NON [id number] 10:38:00Reason for exam:->IABP Should this be performed at the bedside?->YesFINAL REPORT Chest one view INDICATION: IABP COMPARISON: 06/01/2006 IMPRESSION: IABP catheter tip overlies the aortic knob. ET tube terminates 3.5 cm above the toro. NG tube extends below the diaphragm with tip off image. The cardiac silhouette is enlarged. There is pulmonary vascular congestion with interstitial and perihilar edema. The left diaphragm is elevated with a suspected small pleural effusions, and left retrocardiac consolidation or atelectasis. There is a lower right lung atelectasis. No pneumothorax is seen. Signed: Yoshi Martinez MDReport Verified Date/Time: 07/18/2017 10:38:31 Reading Location: [facility] Radiology Reading Room CBC W/PLT COUNT & AUTO [id number] 10: 01:00 Test Item Value Reference Range Comments WHITE BLOOD CELL COUNT (BEAKER) (test srzx=754) 12.8 K/ L 3.5-10.5 RED BLOOD CELL COUNT (BEAKER) (test llod=418) 3.95 M/ L 3.93-5.22 HEMOGLOBIN (BEAKER) (test wade=660) 11.9 GM/DL 11.2-15.7 HEMATOCRIT (BEAKER) (test kgds=489) 38.3 % 34.1-44.9 MEAN CORPUSCULAR VOLUME (BEAKER) (test yyyq=399) 97.0 fL 79.4-94.8 MEAN CORPUSCULAR HEMOGLOBIN (BEAKER) (test 30.1 pg 25.6-32.2 aqmv=621) MEAN CORPUSCULAR HEMOGLOBIN CONC (BEAKER) (test 31.1 GM/DL 32.2-35.5 snba=804) RED CELL DISTRIBUTION WIDTH (BEAKER) (test 13.1 % 11.7-14.4 warw=889) PLATELET COUNT (BEAKER) (test wxnj=042) 231 K/CU MM 150-450 MEAN PLATELET VOLUME (BEAKER) (test nszk=350) 10.4 fL 9.4-12.3 NUCLEATED RED BLOOD CELLS (BEAKER) (test 0 /100 WBC 0-0 esmk=258) NEUTROPHILS RELATIVE PERCENT (BEAKER) (test 91 % ouda=676) LYMPHOCYTES RELATIVE PERCENT (BEAKER) (test 4 % bmvs=699) MONOCYTES RELATIVE PERCENT (BEAKER) (test 4 % audz=486) EOSINOPHILS RELATIVE PERCENT (BEAKER) (test 0 % sjgp=095) BASOPHILS RELATIVE PERCENT (BEAKER) (test 0 % yzqu=809) NEUTROPHILS ABSOLUTE COUNT (BEAKER) (test 11.66 K/ L 1.56-6.13 dtbc=109) LYMPHOCYTES ABSOLUTE COUNT (BEAKER) (test 0.53 K/ L 1.18-3.74 qkjk=052) MONOCYTES ABSOLUTE COUNT (BEAKER) (test 0.49 K/ L 0.24-0.36 fatl=993) EOSINOPHILS ABSOLUTE COUNT (BEAKER) (test 0.01 K/ L 0.04-0.36 xsym=635) BASOPHILS ABSOLUTE COUNT (BEAKER) (test 0.03 K/ L 0.01-0.08 xlqk=998) IMMATURE GRANULOCYTES-RELATIVE PERCENT (BEAKER) 0 % 0-1 (test ytxj=9692) COMPREHENSIVE METABOLIC [id number] 09:38:00 Test Item Value Reference Range Comments TOTAL PROTEIN (BEAKER) 6.7 gm/dL 6.0-8.3 Specimen slightly (test unim=839) hemolyzed ALBUMIN (BEAKER) (test 3.5 g/dL 3.5-5.0 Specimen slightly kutw=6039) hemolyzed ALKALINE PHOSPHATASE 70 U/L 40-150 (BEAKER) (test zneq=968) BILIRUBIN TOTAL (BEAKER) 0.6 mg/dL 0.2-1.2 Specimen slightly (test lzhm=573) hemolyzed SODIUM (BEAKER) (test 134 meq/L 136-145 gxuc=212) POTASSIUM (BEAKER) (test 4.7 meq/L 3.5-5.1 Specimen slightly elje=267) hemolyzed CHLORIDE (BEAKER) (test 98 meq/L 98-107 rmbr=856) CO2 (BEAKER) (test 25 meq/L 22-29 udss=483) BLOOD UREA NITROGEN 19 mg/dL 7-21 (BEAKER) (test wprb=639) CREATININE (BEAKER) (test 1.57 mg/dL 0.57-1.25 Specimen slightly zxtm=718) hemolyzed GLUCOSE RANDOM (BEAKER) 652 mg/dL 70-105 (test qpyz=297) CALCIUM (BEAKER) (test 8.7 mg/dL 8.4-10.2 tbrc=872) AST (SGOT) (BEAKER) (test 343 U/L 5-34 Specimen slightly zzqx=854) hemolyzed ALT (SGPT) (BEAKER) (test 89 U/L 6-55 Specimen slightly wbou=127) hemolyzed EGFR (BEAKER) (test 39 mL/min/1.73 sq m ESTIMATED GFR IS NOT rxva=4062) ACCURATE CREATININE CLEARANCE IN PREDICTING GLOMERULAR FILTRATION RATE. ESTIMATED GFR IS NOT APPLICABLE FOR DIALYSIS PATIENTS. [id number] 09:09:00 Test Item Value Reference Range Comments ACTIVATED CLOTTING TIME 252 sec TESTED AT [facility] [address] (BEAKER) (test okgb=444) [place] [address] PROTHROMBIN TIME/[id number] 09:01:00 Test Item Value Reference Range Comments PROTIME (BEAKER) (test ewjl=986) 18.3 seconds 11.7-14.7 INR (BEAKER) (test dtxm=545) 1.5 <=5.9 RECOMMENDED COUMADIN/WARFARIN INR THERAPY RANGESSTANDARD DOSE: 2.0 - 3.0 Includes: PROPHYLAXIS forvenous thrombosis, systemic embolization; TREATMENT for venous thrombosis and/or pulmonary embolus.HIGH RISK: Target INR is 2.5-3.5 for patients with mechanical heart valves.[id number] 08:09:00 Test Item Value Reference Range Comments ACTIVATED CLOTTING TIME 213 sec TESTED AT [address] (BEAKER) (test chho=018) [place] [address] [id number] 08:09:00 Test Item Value Reference Range Comments ACTIVATED CLOTTING TIME 263 sec TESTED AT [address] (BEAKER) (test szvc=179) [place] [address] BLOOD GAS, [id number] 07:50:00 Test Item Value Reference Range Comments PH ARTERIAL (BEAKER) (test vwey=792) 7.20 7.35-7.45 PCO2 ARTERIAL (BEAKER) (test jdcl=636) 65 mmHg 35-45 PO2 ARTERIAL (BEAKER) (test oxtr=931) 133 mmHg 80-90 O2 SATURATION ARTERIAL (BEAKER) (test qxph=225) 98.1 % 96.0-97.0 HCO3 ARTERIAL (BEAKER) (test inzh=970) 25 mmol/L 21-29 BASE EXCESS ARTERIAL (BEAKER) (test dxnj=904) -4.3 mmol/L -2.0-3.0 PATIENT TEMPERATURE (BEAKER) (test arun=9898) 36.0 C FIO2 (BEAKER) (test wand=5715) 100.0 % POCT-GLUCOSE [id number] 12:27:00 Test Item Value Reference Range Comments POC-GLUCOSE METER (BEAKER) 156 mg/dL 70-110 TESTED AT [address] (test prse=3383) [place] [address] BASIC METABOLIC [id number] 05:45:00 Test Item Value Reference Range Comments SODIUM (BEAKER) (test 141 meq/L 136-145 nfcx=763) POTASSIUM (BEAKER) (test 4.1 meq/L 3.5-5.1 grak=976) CHLORIDE (BEAKER) (test 106 meq/L 98-107 iebw=020) CO2 (BEAKER) (test 26 meq/L 22-29 ffik=600) BLOOD UREA NITROGEN 11 mg/dL 7-21 (BEAKER) (test lhuu=788) CREATININE (BEAKER) (test 0.83 mg/dL 0.57-1.25 ptxd=633) GLUCOSE RANDOM (BEAKER) 139 mg/dL 70-105 (test sbhu=606) CALCIUM (BEAKER) (test 8.5 mg/dL 8.4-10.2 pusz=401) EGFR (BEAKER) (test 83 mL/min/1.73 sq m ESTIMATED GFR IS NOT slwr=3467) ACCURATE CREATININE CLEARANCE IN PREDICTING GLOMERULAR FILTRATION RATE. ESTIMATED GFR IS NOT APPLICABLE FOR DIALYSIS PATIENTS. POCT-GLUCOSE [id number] 21:10:00 Test Item Value Reference Range Comments POC-GLUCOSE METER (BEAKER) 103 mg/dL 70-110 TESTED AT [address] (test nlln=0460) [place] [address] POCT-GLUCOSE [id number] 17:51:00 Test Item Value Reference Range Comments POC-GLUCOSE METER (BEAKER) 138 mg/dL 70-110 TESTED AT [address] (test osjt=5882) [place] [address] POCT-GLUCOSE [id number] 12:45:00 Test Item Value Reference Range Comments POC-GLUCOSE METER (BEAKER) 294 mg/dL 70-110 TESTED AT [address] (test luiz=9118) [place] [address] CBC WITH PLATELET COUNT + MANUAL [id number] 07:04:00 Test Item Value Reference Range Comments WHITE BLOOD CELL COUNT (BEAKER) (test vfrd=023) 10.7 K/ L 4.0-10.0 RED BLOOD CELL COUNT (BEAKER) (test nkoi=429) 3.91 M/ L 4.00-5.00 HEMOGLOBIN (BEAKER) (test hdby=158) 12.9 GM/DL 12.0-15.0 HEMATOCRIT (BEAKER) (test vtbp=349) 39.0 % 36.0-45.0 MEAN CORPUSCULAR VOLUME (BEAKER) (test wijs=929) 99.6 fL 82.0-99.0 MEAN CORPUSCULAR HEMOGLOBIN (BEAKER) (test 32.9 pg 27.0-33.0 iijj=292) MEAN CORPUSCULAR HEMOGLOBIN CONC (BEAKER) (test 33.0 GM/DL 32.0-36.0 irdp=344) RED CELL DISTRIBUTION WIDTH (BEAKER) (test 12.8 % 10.3-14.2 puvv=742) PLATELET COUNT (BEAKER) (test iasc=198) 251 K/CU MM 150-430 MEAN PLATELET VOLUME (BEAKER) (test qvmy=681) 8.1 fL 6.5-10.5 NUCLEATED RED BLOOD CELLS (BEAKER) (test 0 /100 WBC 0-0 jdaz=881) NEUTROPHILS RELATIVE PERCENT (BEAKER) (test 80 % htsq=320) LYMPHOCYTES RELATIVE PERCENT (BEAKER) (test 14 % ziwv=670) MONOCYTES RELATIVE PERCENT (BEAKER) (test 6 % fsxp=388) EOSINOPHILS RELATIVE PERCENT (BEAKER) (test 0 % mwsc=972) BASOPHILS RELATIVE PERCENT (BEAKER) (test 0 % xqho=138) NEUTROPHILS ABSOLUTE COUNT (BEAKER) (test 8.55 K/ L 1.80-8.00 qovf=024) LYMPHOCYTES ABSOLUTE COUNT (BEAKER) (test 1.46 K/ L 1.48-4.50 pedm=982) MONOCYTES ABSOLUTE COUNT (BEAKER) (test 0.60 K/ L 0.00-1.30 xljg=654) EOSINOPHILS ABSOLUTE COUNT (BEAKER) (test 0.05 K/ L 0.00-0.50 pisz=672) BASOPHILS ABSOLUTE COUNT (BEAKER) (test 0.02 K/ L 0.00-0.20 kiim=568) 0.00(MANUAL DIFFERENTIAL)2016-06-14 07:04:00 Test Item Value Reference Range Comments TOTAL COUNTED (BEAKER) (test gvjx=8553) PLT MORPHOLOGY (BEAKER) (test clab=069) Normal RBC MORPHOLOGY (BEAKER) (test lhms=493) Normal ATYPICAL LYMPHS(BEAKER) (test pxhi=0909) Present BASIC METABOLIC [id number] 05:05:00 Test Item Value Reference Range Comments SODIUM (BEAKER) (test 140 meq/L 136-145 wmeu=908) POTASSIUM (BEAKER) (test 3.8 meq/L 3.5-5.1 fjyc=655) CHLORIDE (BEAKER) (test 107 meq/L 98-107 iotd=127) CO2 (BEAKER) (test 26 meq/L 22-29 isgn=633) BLOOD UREA NITROGEN 13 mg/dL 7-21 (BEAKER) (test mgod=244) CREATININE (BEAKER) (test 0.80 mg/dL 0.57-1.25 idrh=710) GLUCOSE RANDOM (BEAKER) 177 mg/dL 70-105 (test tkwq=537) CALCIUM (BEAKER) (test 8.3 mg/dL 8.4-10.2 jbly=434) EGFR (BEAKER) (test 86 mL/min/1.73 sq m ESTIMATED GFR IS NOT scci=1824) ACCURATE CREATININE CLEARANCE IN PREDICTING GLOMERULAR FILTRATION RATE. ESTIMATED GFR IS NOT APPLICABLE FOR DIALYSIS PATIENTS. [id number] 04:48:00 Test Item Value Reference Range Comments PROTIME (BEAKER) (test niro=469) 13.0 seconds 11.7-14.7 INR (BEAKER) (test ujhi=118) 1.0 <=5.9 PARTIAL THROMBOPLASTIN TIME (BEAKER) (test 31.8 seconds 22.5-36.0 gxhp=761) RECOMMENDED COUMADIN/WARFARIN INR THERAPY RANGESSTANDARD DOSE: 2.0 - 3.0 Includes: PROPHYLAXIS forvenous thrombosis, systemic embolization; TREATMENT for venous thrombosis and/or pulmonary embolus.HIGH RISK: Target INR is 2.5-3.5 for patients with mechanical heart valves.POCT-GLUCOSE [id number] 22:11:00 Test Item Value Reference Range Comments POC-GLUCOSE METER (BEAKER) 200 mg/dL 70-110 TESTED AT [address] (test mrms=4863) [place] [id number] POCT-GLUCOSE [id number] 17:13:00 Test Item Value Reference Range Comments POC-GLUCOSE METER (BEAKER) 225 mg/dL 70-110 TESTED AT [address] (test dbsp=9026) [facility] [id number] POCT-GLUCOSE [id number] 12:22:00 Test Item Value Reference Range Comments POC-GLUCOSE METER (BEAKER) 309 mg/dL 70-110 Notified PAULA BERGER/TESTED AT [facility] (test xdvu=3566) [address] [place] [id number] URINALYSIS W/ [id number] 12:09:00 Test Item Value Reference Range Comments COLOR (BEAKER) (test jvpx=663) Yellow CLARITY (BEAKER) (test knzd=149) Clear SPECIFIC GRAVITY UA (BEAKER) (test baut=881) 1.035 1.001-1.035 PH UA (BEAKER) (test lnfc=872) 5.0 5.0-8.0 PROTEIN UA (BEAKER) (test tigi=319) Negative Negative GLUCOSE UA (BEAKER) (test bhfl=005) 150 mg/dL Negative KETONES UA (BEAKER) (test aruk=182) Negative Negative BILIRUBIN UA (BEAKER) (test fdjp=498) Negative Negative BLOOD UA (BEAKER) (test udkq=587) Small Negative NITRITE UA (BEAKER) (test qxck=187) Negative Negative LEUKOCYTE ESTERASE UA (BEAKER) (test wozw=126) Negative Negative UROBILINOGEN UA (BEAKER) (test wzyf=172) 0.2 mg/dL 0.2-1.0 RBC UA (BEAKER) (test rkvg=904) 6 /HPF WBC UA (BEAKER) (test wusv=216) 1 /HPF MUCUS (BEAKER) (test gqki=2164) Rare SQUAMOUS EPITHELIAL (BEAKER) (test zeao=979) 6 /HPF HYALINE CASTS (BEAKER) (test ydct=328) 2 /LPF SOURCE(BEAKER) (test liys=6396) POCT-GLUCOSE [id number] 07:58:00 Test Item Value Reference Range Comments POC-GLUCOSE METER (BEAKER) 236 mg/dL 70-110 TESTED AT [address] (test pkvl=9471) [facility] [address] BASIC METABOLIC [id number] 04:10:00 Test Item Value Reference Range Comments SODIUM (BEAKER) (test 138 meq/L 136-145 jjqo=997) POTASSIUM (BEAKER) (test 4.2 meq/L 3.5-5.1 hzuw=971) CHLORIDE (BEAKER) (test 107 meq/L 98-107 kngm=603) CO2 (BEAKER) (test 22 meq/L 22-29 vclo=543) BLOOD UREA NITROGEN 20 mg/dL 7-21 (BEAKER) (test gnmr=736) CREATININE (BEAKER) (test 1.00 mg/dL 0.57-1.25 znlc=832) GLUCOSE RANDOM (BEAKER) 246 mg/dL 70-105 (test rozd=166) CALCIUM (BEAKER) (test 8.8 mg/dL 8.4-10.2 ztte=532) EGFR (BEAKER) (test 67 mL/min/1.73 sq m ESTIMATED GFR IS NOT wpgi=1950) ACCURATE CREATININE CLEARANCE IN PREDICTING GLOMERULAR FILTRATION RATE. ESTIMATED GFR IS NOT APPLICABLE FOR DIALYSIS PATIENTS. [id number] 04:03:00 Test Item Value Reference Range Comments PROTIME (BEAKER) (test mffs=725) 12.8 seconds 11.7-14.7 INR (BEAKER) (test dqyn=424) 1.0 <=5.9 PARTIAL THROMBOPLASTIN TIME (BEAKER) (test 29.6 seconds 22.5-36.0 ouwz=074) RECOMMENDED COUMADIN/WARFARIN INR THERAPY RANGESSTANDARD DOSE: 2.0 - 3.0 Includes: PROPHYLAXIS forvenous thrombosis, systemic embolization; TREATMENT for venous thrombosis and/or pulmonary embolus.HIGH RISK: Target INR is 2.5-3.5 for patients with mechanical heart valves.CBC WITH PLATELET COUNT + MANUAL [id number] 03:58:00 Test Item Value Reference Range Comments WHITE BLOOD CELL COUNT (BEAKER) (test bczy=824) 14.3 K/ L 4.0-10.0 RED BLOOD CELL COUNT (BEAKER) (test oeox=228) 4.03 M/ L 4.00-5.00 HEMOGLOBIN (BEAKER) (test bdox=734) 13.1 GM/DL 12.0-15.0 HEMATOCRIT (BEAKER) (test oplc=114) 39.7 % 36.0-45.0 MEAN CORPUSCULAR VOLUME (BEAKER) (test ofxq=155) 98.5 fL 82.0-99.0 MEAN CORPUSCULAR HEMOGLOBIN (BEAKER) (test 32.6 pg 27.0-33.0 shyv=102) MEAN CORPUSCULAR HEMOGLOBIN CONC (BEAKER) (test 33.1 GM/DL 32.0-36.0 inwp=663) RED CELL DISTRIBUTION WIDTH (BEAKER) (test 12.9 % 10.3-14.2 ujfj=361) PLATELET COUNT (BEAKER) (test qunp=702) 271 K/CU MM 150-430 MEAN PLATELET VOLUME (BEAKER) (test khug=338) 7.7 fL 6.5-10.5 NUCLEATED RED BLOOD CELLS (BEAKER) (test 0 /100 WBC 0-0 pyqc=458) NEUTROPHILS RELATIVE PERCENT (BEAKER) (test 87 % frao=387) LYMPHOCYTES RELATIVE PERCENT (BEAKER) (test 7 % cqkp=087) MONOCYTES RELATIVE PERCENT (BEAKER) (test 6 % zwbk=443) EOSINOPHILS RELATIVE PERCENT (BEAKER) (test 0 % sepa=264) BASOPHILS RELATIVE PERCENT (BEAKER) (test 0 % cses=356) NEUTROPHILS ABSOLUTE COUNT (BEAKER) (test 12.40 K/ L 1.80-8.00 yssi=738) LYMPHOCYTES ABSOLUTE COUNT (BEAKER) (test 1.06 K/ L 1.48-4.50 gitm=484) MONOCYTES ABSOLUTE COUNT (BEAKER) (test 0.81 K/ L 0.00-1.30 llgq=408) EOSINOPHILS ABSOLUTE COUNT (BEAKER) (test 0.01 K/ L 0.00-0.50 pzlf=304) BASOPHILS ABSOLUTE COUNT (BEAKER) (test 0.03 K/ L 0.00-0.20 eavn=526) [id number]-GLUCOSE [id number] 22:17:00 Test Item Value Reference Range Comments POC-GLUCOSE METER (BEAKER) 260 mg/dL 70-110 TESTED AT [address] (test jfhj=9477) [facility] [address] POCT-GLUCOSE [id number] 12:11:00 Test Item Value Reference Range Comments POC-GLUCOSE METER (BEAKER) 278 mg/dL 70-110 TESTED AT [address] (test uzic=9841) [facility] [address] HEMOGLOBIN [id number] 10:46:00 Test Item Value Reference Range Comments HEMOGLOBIN A1C (BEAKER) (test rhsl=801) 9.7 % 4.3-6.1 DC\S\Delta Check\S\NONEPOCT-GLUCOSE [id number] 07:15:00 Test Item Value Reference Range Comments POC-GLUCOSE METER (BEAKER) 283 mg/dL 70-110 TESTED AT [address] (test zlca=2251) [facility] [address] BASIC METABOLIC [id number] 04:43:00 Test Item Value Reference Range Comments SODIUM (BEAKER) (test 136 meq/L 136-145 tdjy=238) POTASSIUM (BEAKER) (test 4.0 meq/L 3.5-5.1 vtvq=817) CHLORIDE (BEAKER) (test 102 meq/L 98-107 ocgi=702) CO2 (BEAKER) (test 27 meq/L 22-29 nibl=851) BLOOD UREA NITROGEN 18 mg/dL 7-21 (BEAKER) (test pawo=382) CREATININE (BEAKER) (test 0.95 mg/dL 0.57-1.25 ihii=772) GLUCOSE RANDOM (BEAKER) 256 mg/dL 70-105 (test ouqm=734) CALCIUM (BEAKER) (test 9.0 mg/dL 8.4-10.2 ppxx=819) EGFR (BEAKER) (test 71 mL/min/1.73 sq m ESTIMATED GFR IS NOT pzmk=5347) ACCURATE CREATININE CLEARANCE IN PREDICTING GLOMERULAR FILTRATION RATE. ESTIMATED GFR IS NOT APPLICABLE FOR DIALYSIS PATIENTS. CBC WITH PLATELET COUNT + MANUAL [id number] 04:28:00 Test Item Value Reference Range Comments WHITE BLOOD CELL COUNT (BEAKER) (test gclb=060) 11.6 K/ L 4.0-10.0 RED BLOOD CELL COUNT (BEAKER) (test jndc=049) 4.15 M/ L 4.00-5.00 HEMOGLOBIN (BEAKER) (test sxyr=519) 13.3 GM/DL 12.0-15.0 HEMATOCRIT (BEAKER) (test gbms=290) 40.5 % 36.0-45.0 MEAN CORPUSCULAR VOLUME (BEAKER) (test fdpy=833) 97.6 fL 82.0-99.0 MEAN CORPUSCULAR HEMOGLOBIN (BEAKER) (test 32.1 pg 27.0-33.0 zxwe=518) MEAN CORPUSCULAR HEMOGLOBIN CONC (BEAKER) (test 32.9 GM/DL 32.0-36.0 asvw=636) RED CELL DISTRIBUTION WIDTH (BEAKER) (test 12.7 % 10.3-14.2 phly=433) PLATELET COUNT (BEAKER) (test zkwv=958) 263 K/CU MM 150-430 MEAN PLATELET VOLUME (BEAKER) (test pxyn=485) 8.2 fL 6.5-10.5 NUCLEATED RED BLOOD CELLS (BEAKER) (test 0 /100 WBC 0-0 urnz=233) NEUTROPHILS RELATIVE PERCENT (BEAKER) (test 90 % wvxo=626) LYMPHOCYTES RELATIVE PERCENT (BEAKER) (test 8 % gjhw=675) MONOCYTES RELATIVE PERCENT (BEAKER) (test 2 % uvyq=401) EOSINOPHILS RELATIVE PERCENT (BEAKER) (test 0 % aimv=415) BASOPHILS RELATIVE PERCENT (BEAKER) (test 0 % mqql=600) NEUTROPHILS ABSOLUTE COUNT (BEAKER) (test 10.40 K/ L 1.80-8.00 tgqr=573) LYMPHOCYTES ABSOLUTE COUNT (BEAKER) (test 0.95 K/ L 1.48-4.50 mskr=261) MONOCYTES ABSOLUTE COUNT (BEAKER) (test 0.20 K/ L 0.00-1.30 kneq=192) EOSINOPHILS ABSOLUTE COUNT (BEAKER) (test 0.02 K/ L 0.00-0.50 pizy=580) BASOPHILS ABSOLUTE COUNT (BEAKER) (test 0.02 K/ L 0.00-0.20 rfuo=881) 0.00PT/[id number] 04:25:00 Test Item Value Reference Range Comments PROTIME (BEAKER) (test gdqf=373) 13.7 seconds 11.7-14.7 INR (BEAKER) (test dlfp=055) 1.1 <=5.9 PARTIAL THROMBOPLASTIN TIME (BEAKER) (test 32.8 seconds 22.5-36.0 kvuk=348) RECOMMENDED COUMADIN/WARFARIN INR THERAPY RANGESSTANDARD DOSE: 2.0 - 3.0 Includes: PROPHYLAXIS forvenous thrombosis, systemic embolization; TREATMENT for venous thrombosis and/or pulmonary embolus.HIGH RISK: Target INR is 2.5-3.5 for patients with mechanical heart valves.POCT-GLUCOSE [id number] 02:47:00 Test Item Value Reference Range Comments POC-GLUCOSE METER (BEAKER) 278 mg/dL 70-110 TESTED AT [facility] [address] [facility] (test mugq=3303) [facility] [address] POCT-GLUCOSE [id number] 22:12:00 Test Item Value Reference Range Comments POC-GLUCOSE METER (BEAKER) 258 mg/dL 70-110 TESTED AT [facility] [address] (test oodj=0045) [facility] [address] [id number] 15:44:00 Test Item Value Reference Range Comments MAGNESIUM (BEAKER) (test 2.1 mg/dL 1.6-2.6 Specimen slightly hemolyzed lwgn=111) [id number] 15:44:00 Test Item Value Reference Range Comments PHOSPHORUS (BEAKER) (test 2.9 mg/dL 2.3-4.7 Specimen slightly hemolyzed ywgq=407) BASIC METABOLIC [id number] 15:44:00 Test Item Value Reference Range Comments SODIUM (BEAKER) (test 137 meq/L 136-145 mmss=055) POTASSIUM (BEAKER) (test 4.4 meq/L 3.5-5.1 Specimen slightly zycd=749) hemolyzed CHLORIDE (BEAKER) (test 99 meq/L 98-107 xafm=586) CO2 (BEAKER) (test 27 meq/L 22-29 mxdj=644) BLOOD UREA NITROGEN 13 mg/dL 7-21 (BEAKER) (test sopu=341) CREATININE (BEAKER) (test 0.96 mg/dL 0.57-1.25 Specimen slightly roqp=846) hemolyzed GLUCOSE RANDOM (BEAKER) 250 mg/dL 70-105 (test ight=104) CALCIUM (BEAKER) (test 9.6 mg/dL 8.4-10.2 qkjt=079) EGFR (BEAKER) (test 70 mL/min/1.73 sq m ESTIMATED GFR IS NOT pwmf=8044) ACCURATE CREATININE CLEARANCE IN PREDICTING GLOMERULAR FILTRATION RATE. ESTIMATED GFR IS NOT APPLICABLE FOR DIALYSIS PATIENTS. CBC WITH PLATELET COUNT + MANUAL [id number] 15:39:00 Test Item Value Reference Range Comments WHITE BLOOD CELL COUNT (BEAKER) (test fsoz=533) 9.5 K/ L 4.0-10.0 RED BLOOD CELL COUNT (BEAKER) (test ylpj=552) 4.18 M/ L 4.00-5.00 HEMOGLOBIN (BEAKER) (test pnkn=154) 14.0 GM/DL 12.0-15.0 HEMATOCRIT (BEAKER) (test xlht=869) 40.7 % 36.0-45.0 MEAN CORPUSCULAR VOLUME (BEAKER) (test eppw=383) 97.3 fL 82.0-99.0 MEAN CORPUSCULAR HEMOGLOBIN (BEAKER) (test 33.4 pg 27.0-33.0 lypq=500) MEAN CORPUSCULAR HEMOGLOBIN CONC (BEAKER) (test 34.3 GM/DL 32.0-36.0 cpjf=097) RED CELL DISTRIBUTION WIDTH (BEAKER) (test 12.6 % 10.3-14.2 vlkw=166) PLATELET COUNT (BEAKER) (test thbq=715) 253 K/CU MM 150-430 MEAN PLATELET VOLUME (BEAKER) (test iiam=702) 8.1 fL 6.5-10.5 NUCLEATED RED BLOOD CELLS (BEAKER) (test 0 /100 WBC 0-0 iukj=847) NEUTROPHILS RELATIVE PERCENT (BEAKER) (test 91 % nlmv=925) LYMPHOCYTES RELATIVE PERCENT (BEAKER) (test 8 % irxk=726) MONOCYTES RELATIVE PERCENT (BEAKER) (test 1 % fqnh=790) EOSINOPHILS RELATIVE PERCENT (BEAKER) (test 0 % jpkz=320) BASOPHILS RELATIVE PERCENT (BEAKER) (test 0 % heke=319) NEUTROPHILS ABSOLUTE COUNT (BEAKER) (test 8.66 K/ L 1.80-8.00 esxb=406) LYMPHOCYTES ABSOLUTE COUNT (BEAKER) (test 0.78 K/ L 1.48-4.50 qyie=061) MONOCYTES ABSOLUTE COUNT (BEAKER) (test 0.07 K/ L 0.00-1.30 itxd=726) EOSINOPHILS ABSOLUTE COUNT (BEAKER) (test 0.01 K/ L 0.00-0.50 oldn=581) BASOPHILS ABSOLUTE COUNT (BEAKER) (test 0.01 K/ L 0.00-0.20 epny=985) [id number] 15:39:00 Test Item Value Reference Range Comments PROTIME (BEAKER) (test fvic=421) 12.7 seconds 11.7-14.7 INR (BEAKER) (test gpng=144) 1.0 <=5.9 PARTIAL THROMBOPLASTIN TIME (BEAKER) (test 32.8 seconds 22.5-36.0 nlxu=516) RECOMMENDED COUMADIN/WARFARIN INR THERAPY RANGESSTANDARD DOSE: 2.0 - 3.0 Includes: PROPHYLAXIS forvenous thrombosis, systemic embolization; TREATMENT for venous thrombosis and/or pulmonary embolus.HIGH RISK: Target INR is 2.5-3.5 for patients with mechanical heart valves.
[2017-09-30] MEDS ORDERED: NA CHLORIDE 0.9% 250 ML ONE ×2 (12:12→13:42)
[2017-09-30 12:26] LABS: Absolute Lymphocytes (CBC) 0.8 K/uL (0.7-4.9); Absolute Monocytes 0.4 K/uL (0.1-1.3); Absolute Neutrophil 5.6 K/uL (1.8-8.0); Basophils % 0.7 % (0-1.3); Eosinophils % 0.5 % (0-4.4); Hematocrit 32.4 % (36.0-45.0); Lymphocytes % 11.2 % (15.3-44.8); MCH 30.5 pg (27.0-35.0); MCV 95.4 fL (80-100); MPV 8.9 fL (7.6-11.3); Monocytes % 5.3 % (3.3-12.3)
[2017-09-30 12:31] LABS: Protime INR 0.95
[2017-09-30 12:57] LABS: Albumin 3.9 g/dL (3.4-5.0); Bilirubin Direct 0.1 mg/dL (0-0.2); Bilirubin Total 0.3 mg/dL (0.2-1.0); CKMB Creatine Kinase MB 1.8 ng/mL (0.3-3.6); Potassium 5.4 mmol/L (3.5-5.1); Protein, Total 8.4 g/dL (6.4-8.2)
--- NOTE | 2017-09-30 13:08 | RAD REPORT ---
EXAM DESCRIPTION: RAD - Chest Single View - 09/30/2017 12:54 pm CLINICAL HISTORY: CHEST PAIN Chest pain. COMPARISON: Chest Single View dated 07/18/2017; Chest Single View dated 04/25/2017; Chest Single View dated 04/23/2017; Chest Single View dated 06/11/2016; Chest Abd Pelvis Wo Con dated 04/27/2017 FINDINGS: Portable technique limits examination quality. The lungs are grossly clear. The heart is normal in size. No displaced fractures.Prominent tortuosity of the thoracic aorta, similar to comparative studies. IMPRESSION: No acute intrathoracic process suspected.
--- NOTE | 2017-09-30 13:23 | ER ---
Nurse's Notes [facility] Name: Christa Ayala Age: 71 yrs Sex: Female : 1945 Arrival Date: 09/30/2017 Time: 12:00 Bed 4 Private MD: Diagnosis: Acute kidney failure;Chest pain, unspecified Presentation: 09/30 11:54 Presenting complaint: EMS states: midsternal chest pain. BP 107/74 HR 86 90% 100% NRB. sv Pt wears O2 \T\ 3L per NC at home. Transition of care: patient was not received from another setting of care. Onset of symptoms was September 30, 2017. Risk Assessment: Do you want to hurt yourself or someone else? Patient reports no desire to harm self or others. Initial Sepsis Screen: Does the patient meet any 2 criteria? No. Patient's initial sepsis screen is negative. Does the patient have a suspected source of infection? No. Patient's initial sepsis screen is negative. Care prior to arrival: None. 11:54 Method Of Arrival: EMS: [facility] sv 11:54 Acuity: SONYA 3 sv Triage Assessment: 11:55 General: Appears in no apparent distress. comfortable, Behavior is calm, cooperative, sv appropriate for age. Pain: Complains of pain in chest. EENT: No signs and/or symptoms were reported regarding the EENT system. Neuro: Level of Consciousness is awake, alert, obeys commands, Oriented to person, place, time, situation, Moves all extremities. Cardiovascular: Patient's skin is warm and dry. Rhythm is sinus rhythm. Respiratory: Respiratory effort is even, unlabored, Respiratory pattern is regular, symmetrical. Derm: Skin is normal. Historical: - Allergies: 12:05 Codeine; sv 12:05 Iodine; sv - Home Meds: 12:05 amlodipine 10 mg tab 1 tab once daily [Active]; aspirin 81 mg Oral chew 1 tab once sv daily [Active]; clopidogrel 75 mg Oral tab 1 tab once daily [Active]; metformin 1,000 mg Oral tab 1 tab 2 times per day [Active]; Atrovent Inhl [Active]; budesonide oral oral [Active]; 12:35 hydralazine 25 mg oral tab three times a day [Active]; metoprolol tartrate 25 mg Oral hb tab 1 tab 2 times per day [Active]; escitalopram oxalate 10 mg oral tab 1 tab once daily [Active]; isosorbide dinitrate 30 mg Oral tab [Active]; bumetanide 1 mg Oral tab 1 tab 2 times per day [Active]; - PMHx: 12:05 CHF; COPD; Diabetes - NIDDM; Emphysema; enlarged aorta; Hypertension; Myocardial sv infarction; - PSHx: 12:05 Hernia repair; Heart stents; sv - Immunization history:: Adult Immunizations up to date. - Ebola Screening: : No symptoms or risks identified at this time. - Family history:: not pertinent. - Hospitalizations: : No recent hospitalization is reported. Screenin:07 Abuse screen: Denies threats or abuse. Denies injuries from another. Nutritional sv screening: No deficits noted. Tuberculosis screening: No symptoms or risk factors identified. Fall Risk None identified. Assessment: 13:43 Reassessment: Patient appears in no apparent distress at this time. No changes from sv previously documented assessment. Patient and/or family updated on plan of care and expected duration. Pain level reassessed. Patient is alert, oriented x 3, equal unlabored respirations, skin warm/dry/pink. GI: Reports nausea. Vital Signs: 12:00 BP 105 / 77; Pulse 98; Resp 18; Temp 97.9(O); Pulse Ox 92% on R/A; dh3 13:00 BP 102 / 68; Pulse 91; Resp 16; Pulse Ox 99% on 3 lpm NC; dh3 13:43 BP 127 / 77; Pulse 98; Resp 23; Pulse Ox 100% on 3 lpm NC; dh3 14:18 BP 119 / 82; Pulse 95; Resp 18; Pulse Ox 100% on 3 lpm NC; dh3 14:56 BP 124 / 80; Pulse 97; Resp 18; Pulse Ox 98% ; sv 14:58 BP 124 / 80; Pulse 95; Resp 17; Pulse Ox 98% on 3 lpm NC; dh3 ED Course: 11:58 traffic monitor specialist on. Pulse ox on. NIBP on. Door closed. Warm blanket given. Head of bed sv elevated. 12:00 Patient arrived in ED. sv 12:00 Initial lab(s) drawn, by ED staff, sent to lab. Inserted saline lock: 20 gauge in right sv antecubital area, using aseptic technique. ,using aseptic technique. done by Verito Wesley RN Blood collected. 12:00 Patient maintains SpO2 saturation greater than 95% on room air. sv 12:01 Ramez Sanchez MD is Attending Physician. rn 12:02 Triage completed. sv 12:06 Arm band placed on right wrist. sv 12:07 Patient has correct armband on for positive identification. Placed in gown. Bed in low sv position. Side rails up X2. 12:08 Gloria Miranda RN is Primary Nurse. sv 12:52 X-ray completed. Portable x-ray completed in exam room. jr1 12:52 XRAY Chest (1 view) In Process Unspecified. EDMS 13:22 Oksana Samuel MD is Hospitalizing Provider. rn 15:23 No provider procedures requiring assistance completed. Patient admitted, IV remains in sv place. intact. Administered Medications: 12:09 Drug: NS 0.9% 250 ml Route: IV; Rate: 1 bolus; Site: right antecubital; sv 12:25 Follow up: Response: No adverse reaction; IV Status: Completed infusion; IV Intake: sv 250ml 13:46 Drug: NS 0.9% 250 ml Route: IV; Rate: 1 bolus; Site: right antecubital; sv 15:02 Follow up: Response: No adverse reaction; IV Status: Completed infusion; IV Intake: sv 250ml 13:46 Drug: Zofran 4 mg Route: IVP; Site: right antecubital; sv 14:00 Follow up: Response: No adverse reaction sv 15:02 Drug: Aspirin Chewable Tablet 243 mg {Note: Pt had already taken 81 mg at home, sv informed be Browne to equal adult dose..} Route: PO; 15:03 Follow up: Response: No adverse reaction sv Intake: 12:25 IV: 250ml; Total: 250ml. sv 15:02 IV: 250ml; Total: 500ml. sv Outcome: 13:22 Decision to Hospitalize by Provider. rn 15:00 Admitted to Tele accompanied by tech, family with patient, via stretcher, room 206, sv with oxygen, with chart, Report called to Sagrario MITCHELL 15:00 Condition: stable 15:00 Instructed on the need for admit. 15:37 Patient left the ED. sv Signatures: Dispatcher [employer] EDIA Ruben, Gloria, RN Sun Mendoza jr1 Ramez Sanchez MD MD rn Baxter, Heather, RN RN hb Herrera, Deanna 3 Corrections: (The following items were deleted from the chart) 12:35 12:05 Home Meds: Hydralazine Oral; sv hb 13:20 12:00 BP 105 / 77; Pulse 98bpm; Resp 18bpm; sv dh3 13:20 13:00 BP 102 / 68; Pulse 91bpm; Resp 16bpm; Pulse Ox 99% RA; dh3 dh3
--- NOTE | 2017-09-30 13:23 | EDPHYS ---
Physician Documentation [facility] Name: Christa Ayala Age: 71 yrs Sex: Female : 1945 Arrival Date: 09/30/2017 Time: 12:00 Bed 4 Private MD: ED Physician Ramez Sanchez HPI: 09/30 12:03 This 71 yrs old Black Female presents to ER via EMS with complaints of Chest Pain. rn 12:03 The patient or guardian reports chest pain that is located primarily in the substernal rn area. Onset: this morning. The pain does not radiate. Associated signs and symptoms: Pertinent positives: shortness of breath, Pertinent negatives: abdominal pain, diaphoresis, palpitations, syncope. The chest pain is described as a heaviness. Duration: The patient or guardian reports multiple episodes, that are intermittent. Modifying factors: The symptoms are alleviated by nothing. the symptoms are aggravated by nothing. Severity of pain: At its worst the pain was moderate in the emergency department the pain has improved. The patient has experienced similar episodes in the past. Reports substernal chest pain, intermittent, began this AM, reports NSTEMI with stent 2 months ago, no fever, + COPD and mild sob. Took plavix this AM.. Historical: - Allergies: 12:05 Codeine; sv 12:05 Iodine; sv - Home Meds: 12:05 amlodipine 10 mg tab 1 tab once daily [Active]; aspirin 81 mg Oral chew 1 tab once sv daily [Active]; clopidogrel 75 mg Oral tab 1 tab once daily [Active]; metformin 1,000 mg Oral tab 1 tab 2 times per day [Active]; Atrovent Inhl [Active]; budesonide oral oral [Active]; 12:35 hydralazine 25 mg oral tab three times a day [Active]; metoprolol tartrate 25 mg Oral hb tab 1 tab 2 times per day [Active]; escitalopram oxalate 10 mg oral tab 1 tab once daily [Active]; isosorbide dinitrate 30 mg Oral tab [Active]; bumetanide 1 mg Oral tab 1 tab 2 times per day [Active]; - PMHx: 12:05 CHF; COPD; Diabetes - NIDDM; Emphysema; enlarged aorta; Hypertension; Myocardial sv infarction; - PSHx: 12:05 Hernia repair; Heart stents; sv - Immunization history:: Adult Immunizations up to date. - Ebola Screening: : No symptoms or risks identified at this time. - Family history:: not pertinent. - Hospitalizations: : No recent hospitalization is reported. ROS: 12:03 Constitutional: Negative for fever, chills, and weight loss, Eyes: Negative for injury, rn pain, redness, and discharge, Neck: Negative for injury, pain, and swelling, Cardiovascular: + chest pain Respiratory: + sob Abdomen/GI: Negative for abdominal pain, nausea, vomiting, diarrhea, and constipation, MS/Extremity: Negative for injury and deformity, Skin: Negative for injury, rash, and discoloration, Neuro: Negative for headache, weakness, numbness, tingling, and seizure. Exam: 12:03 Constitutional: This is a well developed, well nourished patient who is awake, alert, rn and in no acute distress. Head/Face: Normocephalic, atraumatic. Eyes: Pupils equal round and reactive to light, extra-ocular motions intact. Lids and lashes normal. Conjunctiva and sclera are non-icteric and not injected. Cornea within normal limits. Periorbital areas with no swelling, redness, or edema. Neck: Trachea midline, no thyromegaly or masses palpated, and no cervical lymphadenopathy. Supple, full range of motion without nuchal rigidity, or vertebral point tenderness. No Meningismus. Cardiovascular: Regular rate and rhythm with a normal S1 and S2. No gallops, murmurs, or rubs. Normal PMI, no JVD. No pulse deficits. Respiratory: + mild tachypnea, faint exp wheezing, no retractions Abdomen/GI: Soft, non-tender, with normal bowel sounds. No distension or tympany. No guarding or rebound. No evidence of tenderness throughout. MS/ Extremity: Pulses equal, no cyanosis. Neurovascular intact. Full, normal range of motion. Equal circumference. Neuro: Awake and alert, GCS 15, oriented to person, place, time, and situation. Cranial nerves II-XII grossly intact. Motor strength 5/5 in all extremities. Sensory grossly intact. Vital Signs: 12:00 BP 105 / 77; Pulse 98; Resp 18; Temp 97.9(O); Pulse Ox 92% on R/A; dh3 13:00 BP 102 / 68; Pulse 91; Resp 16; Pulse Ox 99% on 3 lpm NC; dh3 13:43 BP 127 / 77; Pulse 98; Resp 23; Pulse Ox 100% on 3 lpm NC; dh3 14:18 BP 119 / 82; Pulse 95; Resp 18; Pulse Ox 100% on 3 lpm NC; dh3 14:56 BP 124 / 80; Pulse 97; Resp 18; Pulse Ox 98% ; sv 14:58 BP 124 / 80; Pulse 95; Resp 17; Pulse Ox 98% on 3 lpm NC; dh3 MDM: 12:01 Patient medically screened. rn 13:20 Differential diagnosis: acute pericarditis, coronary artery disease chest wall pain, rn pleurisy, pneumothorax, stable angina, CHF, pleural effusion, acute renal failure. The patient was given aspirin in the Emergency Department. 13:21 Data reviewed: vital signs, nurses notes, lab test result(s), EKG, radiologic studies, rn plain films, and as a result, I will admit patient. Counseling: I had a detailed discussion with the patient and/or guardian regarding: the historical points, exam findings, and any diagnostic results supporting the discharge/admit diagnosis, lab results, radiology results, the need for further work-up and treatment in the hospital. Response to treatment: the patient's symptoms have mildly improved after treatment, and as a result, I will admit patient. Admission orders: after a detailed discussion of the patient's condition and case, the admit orders are written by me. ED course: Pt with normal trop, non-specific ECG, + acute renal failure, will admit to Dr. Samuel, notified \T\ 1322. 09/30 12:03 Order name: Basic Metabolic Panel; Complete Time: 13:09/30 12:03 Order name: CBC with Diff; Complete Time: 12:09/30 12:03 Order name: Ckmb; Complete Time: :09/30 12:03 Order name: CPK; Complete Time: :09/30 12:03 Order name: LFT's; Complete Time: :09/30 12:03 Order name: Magnesium; Complete Time: 13:09/30 12:03 Order name: NT PRO-BNP; Complete Time: :09/30 12:03 Order name: PT-INR; Complete Time: 12: rn 09/30 12:03 Order name: Ptt, Activated; Complete Time: 12:54 rn 09/30 12:03 Order name: Troponin (emerg Dept Use Only); Complete Time: 12:59 rn 09/30 13:44 Order name: Basic Metabolic Panel EDAZ 09/30 13:44 Order name: Basic Metabolic Panel EDAZ 09/30 13:44 Order name: Basic Metabolic Panel EDAZ 09/30 13:44 Order name: Basic Metabolic Panel EDAZ 09/30 12:03 Order name: XRAY Chest (1 view); Complete Time: 13:09 rn 09/30 12:03 Order name: EKG; Complete Time: 12:04 rn 09/30 12:03 Order name: Cardiac monitoring; Complete Time: 12:05 rn 09/30 13:44 Order name: CONS Physician Consult EDAZ 09/30 13:44 Order name: Renal EDAZ 09/30 13:44 Order name: CBC with Automated Diff EDAZ 09/30 13:44 Order name: CBC with Automated Diff EDAZ 09/30 13:44 Order name: CBC with Automated Diff EDMS 09/30 13:44 Order name: CBC with Automated Diff EDMS 09/30 13:44 Order name: Troponin I EDAZ 09/30 13:44 Order name: Troponin I EDAZ 09/30 13:44 Order name: Troponin I [facility] 09/30 12:03 Order name: EKG - Nurse/Tech; Complete Time: 12:05 rn 09/30 12:03 Order name: IV Saline Lock; Complete Time: 12:06 rn 09/30 12:03 Order name: Labs collected and sent; Complete Time: 12:06 rn 09/30 12:03 Order name: O2 Per Protocol; Complete Time: 12:06 rn 09/30 12:03 Order name: O2 Sat Monitoring; Complete Time: 12:06 rn Administered Medications: 12:09 Drug: NS 0.9% 250 ml Route: IV; Rate: 1 bolus; Site: right antecubital; sv 12:25 Follow up: Response: No adverse reaction; IV Status: Completed infusion; IV Intake: sv 250ml 13:46 Drug: NS 0.9% 250 ml Route: IV; Rate: 1 bolus; Site: right antecubital; sv 15:02 Follow up: Response: No adverse reaction; IV Status: Completed infusion; IV Intake: sv 250ml 13:46 Drug: Zofran 4 mg Route: IVP; Site: right antecubital; sv 14:00 Follow up: Response: No adverse reaction sv 15:02 Drug: Aspirin Chewable Tablet 243 mg {Note: Pt had already taken 81 mg at home, sv informed be Browne to equal adult dose..} Route: PO; 15:03 Follow up: Response: No adverse reaction sv Disposition: 09/30/17 13:22 Hospitalization ordered by Oksana Samuel for Inpatient Admission. Preliminary diagnosis are Acute kidney failure, Chest pain, unspecified. - Bed requested for Telemetry/MedSurg (Inpatient). - Status is Inpatient Admission. sv - Condition is Stable. - Problem is new. - Symptoms have improved. UTI on Admission? No Signatures: Dispatcher [employer] Gloria Wolff, PAULA MITCHELL Ramez Sanchez MD MD rn Gallardo, Verito Howell RN RN hb Corrections: (The following items were deleted from the chart) 12:05 12:03 Reports substernal chest pain, intermittent, began this AM, reports NSTEMI with rn stent 2 months ago, no fever, + COPD and mild sob. . rn 12:35 12:05 Home Meds: Hydralazine Oral; sv hb 14:36 13:22 Hospitalization Ordered by Oksana Samuel MD for Inpatient Admission. Preliminary ag diagnosis is Acute kidney failure; Chest pain, unspecified. Bed requested for Telemetry/MedSurg (Inpatient). Status is Inpatient Admission. Condition is Stable. Problem is new. Symptoms have improved. UTI on Admission? No. rn 15:37 14:36 09/30/2017 13:22 Hospitalization Ordered by Oksana Samuel MD for Inpatient sv Admission. Preliminary diagnosis is Acute kidney failure; Chest pain, unspecified. Bed requested for Telemetry/MedSurg (Inpatient). Status is Inpatient Admission. Condition is Stable. Problem is new. Symptoms have improved. UTI on Admission? No. ag
[2017-09-30] MEDS ORDERED: MORPHINE 4 MG/ML SYR IV PRN (13:37)
[2017-09-30] MEDS ORDERED: ACETAMINOPHEN 500 MG TAB PO PRN (13:37)
[2017-09-30] MEDS ORDERED: ONDANSETRON 4 MG/2 ML VIAL ONE (13:41)
[2017-09-30] MEDS ORDERED: ASPIRIN 81 MG CHEWABLE TABLET ONE (13:43)
[2017-09-30] MEDS ORDERED: NITROGLYCERIN 0.4 MG/TAB SL PRN (13:47)
[2017-09-30] MEDS: NA CHLORIDE 0.9% 1,000 ML IV SCH ×2 (17:05→23:25)
--- NOTE | 2017-09-30 17:25 | EKG ---
Test Date: 2017-09-30 Test Time: 12:00:45 Centrifuge Separator Operator: HAMMAD MEASUREMENT RESULTS: Intervals: Rate: 102 [place]: 154 QRSD: 92 QT: 378 QTc: 492 [place]: P: -15 AZ: 154 QRS: -9 T: 78 INTERPRETIVE STATEMENTS: Sinus tachycardia Inferior-posterior infarct, age undetermined ST & T wave abnormality, consider lateral ischemia Abnormal ECG Compared to ECG 07/18/2017 04:31:19 ST (T wave) deviation now present T-wave abnormality no longer present Myocardial infarct finding still present Possible ischemia still present Electronically Signed On 09-30-17 17:24:36 CDT by John Foster
[2017-09-30 17:49] VITALS: BMI 29.8
--- NOTE | 2017-09-30 17:50 | P.CNS ---
Date of Consult: 09/30/17 Reason for Consult: DARRYL Requesting Physician: Oksana Samuel Chief Complaint: CP/ Weakness History of Present Illness: The patient is a 71-year-old female with a past medical history of coronary artery disease with recent ST-elevation [place], transferred to [facility] with stent placement. No previous history of chronic kidney disease that is known, and last kidney function back in July 2017 was normal at 1.25. However, recent studies done 1 week ago at the primary care physician showed a creatinine of 3.7 and today it is at 8.2. The patient spent approximately 1 month at [facility] as she had a complicated hospital course. With the heart attack, she was likely in cardiogenic shock. Daughter describes the patient being in the ICU, then being stepped down. The patient was then sent to long-term and was recently discharged towards the end of August. Since then, the patient has been lethargic, weak, and has a decreased appetite. Has not been hydrating well. The patient also has multiple other comorbidities including diabetes, hypertension, CHF, COPD, and is oxygen dependent. The patient has become oliguric with no urine production today. Also complaining of pain all over including the chest, arms, back, and legs. Due to the patient' s symptoms which were constant, moderate, and progressively worsening, the daughter got concerned and brought in the patient for further evaluation to the ER. Upon arrival, her vital signs were stable. She was afebrile. She was somewhat hypotensive at 105/77, however, her blood pressure improved. The patient was then referred for admission. The patient was given aspirin, Zofran , and normal saline bolus x2. When the patient was seen in the ER, she was awake, alert, oriented x3, however, very lethargic, ill-appearing, and complaining of some nausea and dry heaving. 2:03 This 71 yrs old Black Female presents to ER via EMS with complaints of Chest Pain. rn 12:03 The patient or guardian reports chest pain that is located primarily in the substernal rn area. Onset: this morning. The pain does not radiate. Associated signs and symptoms: Pertinent positives: shortness of breath, Pertinent negatives: abdominal pain, diaphoresis, palpitations, syncope. The chest pain is described as a heaviness. Duration: The patient or guardian reports multiple episodes, that are intermittent. Modifying factors: The symptoms are alleviated by nothing. the symptoms are aggravated by nothing. Severity of pain: At its worst the pain was moderate in the emergency department the pain has improved. The patient has experienced similar episodes in the past. Reports substernal chest pain, intermittent, began this AM, reports NSTEMI with stent 2 months ago, no fever, + COPD and mild sob. Took plavix this AM.. [facility] records. She was in [facility] in July. She was in a SNF for rehab in August. Serum creatinine 515509: 2.58 Renal US [id number]: Right kidney 10.6cm; Left kdiney 8.7cm. Right renal cyst. No hydronephrosis. Allergies iodine Allergy (Mild, Verified 04/23/17 10:11) Itching/Hives/Rash codeine Adverse Reaction (Intermediate, Verified 04/23/17 10:11) Hives/Rash Home medications list reviewed: Yes Home Medications: Clopidogrel Bisulfate [Plavix*] 75 mg PO DAILY 10/12/12 Metformin HCl [Glucophage*] 1,000 mg PO BID 10/12/12 Metoprolol Tartrate [Lopressor*] 25 mg PO BID 10/12/12 Amlodipine [Norvasc*] 10 mg PO DAILY 10/22/14 Aspirin Chewable [Aspirin Chewable*] 81 mg PO DAILY 04/23/17 Bumetanide [Bumex] 1 mg PO BID 09/30/17 Escitalopram Oxalate [Lexapro] 10 mg PO DAILY 09/30/17 Hydralazine [Apresoline] 25 mg PO TID 09/30/17 Isosorbide Mononitrate [Isosorbide Mononitrate ER] 30 mg PO DAILY 09/30/17 - Past Medical/Surgical History Diabetic: Yes -: HTN -: HIGH CHOLESTROL -: Diabetes -: COPD -: Chest Pain (2013) -: HIATAL HERNIA -: AORTA ANEURYSM -: 2 cardiac stents (2010) - Family History Father Medical History: Heart disease Mother Medical History: Diabetes - Social History Smoking Status: Unknown if ever smoked Alcohol use: No CD- Drugs: No Caffeine use: Yes Place of Residence: Home Review of Systems 10-point ROS is otherwise unremarkable General: Weakness, Malaise Cardiovascular: Chest Pain Gastrointestinal: Nausea Neurological: Weakness Physical Examination Temp Pulse Resp BP Pulse Ox 97.9 F 95 H 17 124/80 09/30/17 12:00 09/30/17 14:58 09/30/17 14:58 09/30/17 14:58 General: Oriented x3, Cooperative HEENT: Atraumatic Neck: Supple Respiratory: Clear to auscultation bilaterally, Normal air movement Cardiovascular: No edema, Regular rate/rhythm Gastrointestinal: Soft and benign, Non-distended, Tenderness Musculoskeletal: No clubbing, No contractures Integumentary: No rashes, No cyanosis Neurological: Normal speech Laboratory Data (last 24 hrs) 09/30/17 12:02: PT 11.2, INR 0.95, APTT 32.6 09/30/17 12:02: WBC 6.8, Hgb 10.4 L, Hct 32.4 L, Plt Count 305 09/30/17 12:02: Sodium 130 L, Potassium 5.4 H, BUN 83 H, Creatinine 8.20 H* D, Glucose 95, Magnesium 2.0, Total Bilirubin 0.3, AST 20, ALT 15, Alkaline Phosphatase 41 L Imagings Data: EXAM DESCRIPTION: RAD - Chest Single View - 09/30/2017 12:54 pm CLINICAL HISTORY: CHEST PAIN Chest pain. COMPARISON: Chest Single View dated 07/18/2017; Chest Single View dated 2017; Chest Single View dated 04/23/2017; Chest Single View dated 06/11/2016; Chest Abd Pelvis Wo Con dated 04/27/2017 FINDINGS: Portable technique limits examination quality. The lungs are grossly clear. The heart is normal in size. No displaced fractures.Prominent tortuosity of the thoracic aorta, similar to comparative studies. IMPRESSION: No acute intrathoracic process suspected. Conclusions/Impression: A/ DARRYL with oliguria suspicious for ATN. FENA 3.08% Hyponatremia. Hyperkalemia. CKD III. HTN with CKD. Anemia in chronic illness. Systolic CHF, chronic. ThoracoAbdominal Aortic Aneurysm. P/ Continue current POC and Medications. Agree with IVF. Monitor volume status. Consider Kayexalate. Consider a renal ultrasound if no renal improvement. Follow up urine chemistries. May need to consider dialysis if no improvement. Check HBV panel. No NSAIDs. AM labs. Daily weight. Thank you kindly for the consultation.
[2017-09-30] MEDS ORDERED: ONDANSETRON 4 MG/2 ML VIAL IV PRN (20:08)
[2017-09-30] MEDS: ATORVASTATIN 40 MG TAB PO SCH (20:12)
[2017-09-30] MEDS: METOPROLOL TAR 25 MG TAB PO SCH (20:12)
[2017-09-30] MEDS ORDERED: METOPROLOL TAR 50 MG TAB PO SCH (21:00)
--- NOTE | 2017-10-01 03:13 | HP ---
Date of Admission: 09/30/2017 Primary Care Physician: Kendrick Stevens MD. Consultants: 1.John Foster MD, cardiology. 2.Alejandro Milelr DO, with nephrology. Code Status: Full. The patient's daughter is in the process of completing the medical power of atto rney paperwork. The patient does not have a living will. Chief Complaint: Generalized weakness. History Of Present Illness: The patient is a 71-year-old female with a past medical history of coron roni artery disease with recent ST-elevation [place], transferred to [facility] with stent placement. No p revious history of chronic kidney disease that is known, and last kidney function back in July 2017 was normal at 1.25. However, recent studies done 1 week ago at the primary care physician showed a c reatinine of 3.7 and today it is at 8.2. The patient spent approximately 1 month at [facility] as sh e had a complicated hospital course. With the heart attack, she was likely in cardiogenic shock. Mckinley dempsey describes the patient being in the ICU, then being stepped down. The patient was then sent to senior living and was recently discharged towards the end of August. Since then, the patient has been l ethargic, weak, and has a decreased appetite. Has not been hydrating well. The patient also has mul tiple other comorbidities including diabetes, hypertension, CHF, COPD, and is oxygen dependent. The patient has become oliguric with no urine production today. Also complaining of pain all over includ ing the chest, arms, back, and legs. Due to the patient's symptoms which were constant, moderate, an d progressively worsening, the daughter got concerned and brought in the patient for further evaluati on to the ER. Upon arrival, her vital signs were stable. She was afebrile. She was somewhat hypote nsive at 105/77, however, her blood pressure improved. The patient was then referred for admission. The patient was given aspirin, Zofran, and normal saline bolus x2. When the patient was seen in the ER, she was awake, alert, oriented x3, however, very lethargic, ill-appearing, and complaining of so me nausea and dry heaving. Past Medical History: COPD, hypertension, hyperlipidemia, coronary artery disease with recent [place] sta tus post stent, congestive heart failure, diastolic dysfunction. The patient also has aortic aneurys m. Past Surgical History: Cardiac stent x2 in 2010 and cardiac stent at [facility] in July. Allergies: IODINE CAUSES ITCHING, HIVES, AND RASH. CODEINE, WHICH ALSO CAUSES HIVES AND RASH. Medications: List reviewed. Family History: Father had heart disease. Mother had diabetes. Social History: The patient is a former smoker. No alcohol use or illicit drug use. Lives at home. Was recently at the senior living, however, taken out by the daughter. Review of Systems: An 11-point system reviewed, negative except as per HPI. Physical Examination: Vital Signs: Blood pressure 105/77, respirations 18, pulse 98, O2 92%, temperature 97.9. General: Awake, alert, oriented x3. Elderly female, ill appearing, lethargic, obese. HEENT: Normocephalic, atraumatic. PERRLA. Dry mucous membranes. Poor dentition. Conjunctivae ani cteric. Neck: Supple. No JVD. Trachea midline. CV: S1, S2. No murmurs. Regular rate and rhythm. Peripheral pulses present. Respiratory: Moving air well bilaterally. No wheezing. No stridor. No use of accessory muscles. Gastrointestinal: Abdomen is soft, nontender, nondistended. Positive bowel sounds. No guarding or rigidity. Extremities: No clubbing, cyanosis. No edema. No calf tenderness. Musculoskeletal: Point tenderness around the right lateral chest wall. Neurologic: Cranial nerves 2 through 12 intact grossly. No focal neurological deficit. Speech is n ormal. Skin: No rashes. Normal skin turgor. Laboratory Data: Sodium 130, potassium 5.4, chloride 91, CO2 26, BUN 83, creatinine 8.2, glucose 95, calcium 9.9, magnesium 2. Troponin 0.03. BNP 34,351. INR 0.95. WBC 6.8, hemoglobin 10.4, hematoc rit 32.4, platelets 305, neutrophils 82%. Chest x-ray shows no acute intrathoracic process suspected. Assessment And Plan: A 71-year-old female with: 1.Acute dehydration secondary to decreased p.o. intake. We will continue with IV fluids. 2.Acute kidney injury. Creatinine has been steadily increasing, currently at 8.2, with electrolyte abnormalities. We will obtain Nephrology consultation. We will obtain a renal ultrasound and serolo gy workup. 3.Coronary artery disease with recent myocardial infarction, [place] artery and [place] heart without angina. 4.Congestive heart failure, last known ejection fraction is 27%, systolic and diastolic dysfunction. 5.Diabetes mellitus type 2, non-insulin dependent. We will start on sliding scale insulin and tanja nue Accu-Cheks. 6.Chronic obstructive pulmonary disease, chronic bronchitis with chronic respiratory failure. The p atient is oxygen dependent, 3 L at home. We will continue. 7.Hyperlipidemia. Continue statin. 8.Gastrointestinal and deep venous thrombosis prophylaxis with proton-pump inhibitor and Lovenox. Plan: Admit the patient to Med-Surg and place as inpatient. /CHRISTY Voice ID: [id number]
[2017-10-01 06:42] LABS: Absolute Lymphocytes (CBC) 0.7 K/uL (0.7-4.9); Absolute Monocytes 0.3 K/uL (0.1-1.3); Absolute Neutrophil 4.4 K/uL (1.8-8.0); Basophils % 0.3 % (0-1.3); Eosinophils % 0.1 % (0-4.4); Hematocrit 28.1 % (36.0-45.0); Lymphocytes % 13.3 % (15.3-44.8); MCV 95.8 fL (80-100); MPV 8.7 fL (7.6-11.3); Monocytes % 5.8 % (3.3-12.3); RBC Red Blood Cell Count 2.93 M/uL (3.86-4.86)
[2017-10-01 06:46] LABS: Potassium 5.9 mmol/L (3.5-5.1)
[2017-10-01] MEDS ORDERED: SOD POLYSTYREN SUL 15 GM/60 ML UCUP PO ONE (08:02)
[2017-10-01] MEDS ORDERED: ASPIRIN EC 81 MG TAB PO SCH (09:00)
[2017-10-01] MEDS: METOPROLOL TAR 25 MG TAB PO SCH ×2 (09:54→20:09)
[2017-10-01] MEDS: ESCITALOPRAM 20 MG TAB PO SCH (09:55)
[2017-10-01] MEDS: LISINOPRIL 10 MG TAB PO SCH (09:55)
[2017-10-01] MEDS: ASPIRIN 81 MG CHEWABLE TABLET PO SCH (09:55)
[2017-10-01] MEDS: CLOPIDOGREL 75 MG TABLET PO SCH (09:55)
[2017-10-01] MEDS: ISOSORBIDE MONO SR 30 MG TAB PO SCH (09:55)
[2017-10-01] MEDS: NA CHLORIDE 0.9% 1,000 ML IV SCH ×2 (10:00→20:15)
--- NOTE | 2017-10-01 12:58 | PN ---
Date of Progress Note: 10/01/2017 Subjective: The patient is seen and examined. Chart reviewed and case discussed with RN. The patie nt feels better; however, still no appetite. No further nausea or vomiting. Denies any chest pain. Review of Systems: Negative except as above. Medications: List reviewed. Physical Examination: Vital Signs: Temperature 97.5, heart rate 75, blood pressure 131/77, respirations 17, O2 saturation 98% on 3 L via nasal cannula. General: Awake, alert, oriented x3. Some mild distress. Elderly female, somewhat ill-appearing, ob sabina, BMI 30. CV: S1, S2. No murmurs. Peripheral pulses present. Respiratory: Moving air well bilaterally. No wheezing. Gastrointestinal: Abdomen is soft, nontender, nondistended. Positive bowel sounds. Extremities: No clubbing, cyanosis, mild pedal edema. Neurologic: Nonfocal. Laboratory Data: Sodium 135, potassium 5.9, chloride 99, CO2 25, BUN 88, creatinine 7.9, glucose 83, calcium 8.8. WBC 5.4, H and H 7.1 and 28.1, platelets 279. Assessment And Plan: A 71-year-old female with: 1.Acute dehydration secondary to decreased p.o. intake. 2.Acute kidney injury. Creatinine has not improved much. May need hemodialysis. We will discuss w [facility] Nephrology, Dr. Miller is on board. The patient does have electrolyte abnormalities. 3.Hyperkalemia. We will give Kayexalate and repeat potassium level. 4.Coronary artery disease with recent myocardial infarction, [place] artery and [place] heart without angina. 5.Congestive heart failure, systolic and diastolic dysfunction. Last known EF is 27%; however, this is before her intervention at [facility] for her myocardial infarction. 6.Diabetes mellitus type 2, non-insulin dependent. We will continue sliding scale insulin and Accu- Cheks. 7.Chronic obstructive pulmonary disease, chronic bronchitis. 8.Chronic respiratory failure. The patient is on oxygen for her chronic obstructive pulmonary disea se, 3 L at home. 9.Hyperlipidemia. 10.Continue statin. 11.Gastrointestinal and deep venous thrombosis prophylaxis with PPI and Lovenox. SA/MODL Voice ID: [id number] Report ID: [id number]
[2017-10-01] MEDS ORDERED: GLUCAGON 1 MG/VIAL IM PRN (15:10)
[2017-10-01] MEDS ORDERED: D50W 25 GM/50 ML SYRINGE IV PRN (15:10)
[2017-10-01] MEDS: INSULIN -REGULAR HUMAN 50 UNIT/0.5 ML ML SQ SCH ×2 (16:30→20:16)
[2017-10-01 16:47] LABS: Urine Appearance CLOUDY; Urine Bilirubin NEGATIVE (NEG); Urine Blood NEGATIVE (NEG); Urine Color YELLOW; Urine Glucose NEGATIVE (NEG); Urine Protein 1+ (NEG); Urine Specific Gravity 1.015 (1.005-1.030); Urine Urobilinogen 0.2 mg/dL (0.2-1.0)
[2017-10-01 16:56] LABS: Urine Protein/Creatinine Ratio 0.89 ratio (<0.15)
[2017-10-01 16:58] LABS: Urine Amorphous Sediment 2+ /HPF (NONE SEEN); Urine Bacteria <20 /HPF (<20); Urine Culture Reflex Order NOT NEEDED; Urine RBC <5 /HPF (NONE SEEN)
[2017-10-01] MEDS: ENOXAPARIN 30 MG/0.3 ML SQ SCH (17:28)
[2017-10-01] MEDS: ATORVASTATIN 40 MG TAB PO SCH (20:08)
[2017-10-01] MEDS: GLUCERNA SHAKE 237 ML CAN PO SCH (20:15)
--- NOTE | 2017-10-01 21:29 | P.PN ---
Date of Service: 10/01/17 Vital Signs Temp Pulse Resp BP Pulse Ox 97.4 F 79 18 129/78 94 10/01/17 16:00 10/01/17 20:09 10/01/17 16:00 10/01/17 20:09 10/01/17 16:00 Medications Acetaminophen (Tylenol -Extra Strength) 500 mg PO Q4H PRN PRN Reason: [id number] Stop: 10/30/17 13:38 Aspirin (Aspirin Chewable) 81 mg PO DAILY [facility] Stop: 10/31/17 09:01 Last Admin: 10/01/17 09:55 Dose: 81 mg Atorvastatin Calcium (Lipitor) 40 mg PO BEDTIME [facility] Stop: 10/30/17 21:01 Last Admin: 10/01/17 20:08 Dose: 40 mg Clopidogrel Bisulfate (Plavix) 75 mg PO DAILY [facility] Stop: 10/31/17 09:01 Last Admin: 10/01/17 09:55 Dose: 75 mg Dextrose (Dextrose 50% Syringe) 12.5 gm IV PRN PRN; Protocol PRN Reason: HYPOGLYCEMIA Stop: 10/31/17 15:11 Enoxaparin Sodium (Lovenox 30 Mg Inj) 30 mg SQ DAILY 5 PM [facility] Stop: 10/31/17 17:01 Last Admin: 10/01/17 17:28 Dose: 30 mg Enteral Nutritional Formula (Glucerna Shake) 237 ml PO BID [facility] Stop: 10/31/17 21:01 Last Admin: 10/01/17 20:15 Dose: Not Given Escitalopram Oxalate (Lexapro) 10 mg PO DAILY [facility] Stop: 10/31/17 09:01 Last Admin: 10/01/17 09:55 Dose: 10 mg Glucagon (Glucagen) 1 mg IM 1X PRN; Protocol PRN Reason: HYPOGLYCEMIA Stop: 10/31/17 15:11 Sodium Chloride (Ns 1000 Ml Ivbag) 1,000 mls @ 100 mls/hr IV .Q10H [facility] Stop: 10/30/17 14:01 Last Admin: 10/01/17 20:15 Dose: 1,000 mls Insulin Human Regular (Novolin -R) 0 unit SQ ACHS KATIA; Protocol Stop: 10/31/17 16:31 Last Admin: 10/01/17 20:16 Dose: Not Given Isosorbide Mononitrate (Imdur) 30 mg PO DAILY [facility] Stop: 10/31/17 09:01 Last Admin: 10/01/17 09:55 Dose: 30 mg Lisinopril (Prinivil) 10 mg PO DAILY [facility] Stop: 10/31/17 09:01 Last Admin: 10/01/17 09:55 Dose: 10 mg Metoprolol Tartrate (Lopressor) 25 mg PO BID [facility] Stop: 10/30/17 21:01 Last Admin: 10/01/17 20:09 Dose: 25 mg Morphine Sulfate (Morphine Sulfate) 2 mg IV Q4H PRN PRN Reason: PAIN MODERATE TO SEVERE Stop: 10/30/17 13:38 Nitroglycerin (Nitrostat) 0.4 mg SL UD PRN PRN Reason: CHEST PAIN Stop: 10/30/17 13:48 Ondansetron HCl (Zofran) 4 mg IV Q6H PRN PRN Reason: NAUSEA / VOMITING Stop: 10/30/17 20:09 Last Admin: 09/30/17 20:18 Dose: 4 mg Sodium Chloride (Normal Saline Flush) 10 ml IV BID [facility] Stop: 10/30/17 21:01 Last Admin: 10/01/17 20:15 Dose: 10 ml Assessment/ Plan: Nephrology. Feeling better today. Still with mild anorexia and nausea. CPS stable without CP or SOB. No acute events overnight. Vitals, medications, blood work and imaging reviewed in the chart. General: Oriented x3, Cooperative HEENT: Atraumatic Neck: Supple Respiratory: Clear to auscultation bilaterally, Normal air movement Cardiovascular: No edema, Regular rate/rhythm Gastrointestinal: Soft and benign, Non-distended, Tenderness Musculoskeletal: No clubbing, No contractures Integumentary: No rashes, No cyanosis Neurological: Normal speech Laboratory Data (last 24 hrs) 09/30/17 12:02: PT 11.2, INR 0.95, APTT 32.6 09/30/17 12:02: WBC 6.8, Hgb 10.4 L, Hct 32.4 L, Plt Count 305 09/30/17 12:02: Sodium 130 L, Potassium 5.4 H, BUN 83 H, Creatinine 8.20 H* D, Glucose 95, Magnesium 2.0, Total Bilirubin 0.3, AST 20, ALT 15, Alkaline Phosphatase 41 L Imagings Data: EXAM DESCRIPTION: RAD - Chest Single View - 09/30/2017 12:54 pm CLINICAL HISTORY: CHEST PAIN Chest pain. COMPARISON: Chest Single View dated 07/18/2017; Chest Single View dated 2017; Chest Single View dated 04/23/2017; Chest Single View dated 06/11/2016; Chest Abd Pelvis Wo Con dated 04/27/2017 FINDINGS: Portable technique limits examination quality. The lungs are grossly clear. The heart is normal in size. No displaced fractures.Prominent tortuosity of the thoracic aorta, similar to comparative studies. IMPRESSION: No acute intrathoracic process suspected. Conclusions/Impression: A/ DARRYL with oliguria suspicious for ATN. FENA 3.08% Hyponatremia. Hyperkalemia. CKD III. HTN with CKD. Anemia in chronic illness. Systolic CHF, chronic. ThoracoAbdominal Aortic Aneurysm. P/ Continue current POC and Medications. Agree with IVF. Monitor volume status. Agree with Kayexalate. Consider a renal ultrasound if no renal improvement. May need to consider dialysis if no improvement. Check HBV panel. No NSAIDs. AM labs. Daily weight. Case discussed with Dr. Samuel. [facility] records from July admission reviewed.
[2017-10-02] MEDS: NA CHLORIDE 0.9% 1,000 ML IV SCH ×2 (06:00→16:00)
[2017-10-02 06:20] LABS: Absolute Lymphocytes (CBC) 1.1 K/uL (0.7-4.9); Absolute Monocytes 0.3 K/uL (0.1-1.3); Absolute Neutrophil 3.9 K/uL (1.8-8.0); Basophils % 1.2 % (0-1.3); Eosinophils % 2.8 % (0-4.4); Hematocrit 31.2 % (36.0-45.0); Lymphocytes % 19.6 % (15.3-44.8); MCH 30.5 pg (27.0-35.0); MCV 95.6 fL (80-100); MPV 8.9 fL (7.6-11.3); Monocytes % 6.2 % (3.3-12.3); RBC Red Blood Cell Count 3.26 M/uL (3.86-4.86)
[2017-10-02 06:48] LABS: Magnesium 2.2 mg/dL (1.8-2.4); Phosphorus 5.4 mg/dL (2.5-4.9); Potassium 4.5 mmol/L (3.5-5.1); Uric Acid 11.9 mg/dL (2.6-6.0)
[2017-10-02] MEDS: INSULIN -REGULAR HUMAN 50 UNIT/0.5 ML ML SQ SCH ×4 (07:30→20:28)
[2017-10-02] MEDS: GLUCERNA SHAKE 237 ML CAN PO SCH ×2 (08:59→20:33)
[2017-10-02] MEDS: LISINOPRIL 10 MG TAB PO SCH (09:00)
[2017-10-02] MEDS: METOPROLOL TAR 25 MG TAB PO SCH ×2 (09:00→20:32)
[2017-10-02] MEDS: ASPIRIN 81 MG CHEWABLE TABLET PO SCH (09:01)
[2017-10-02] MEDS: ESCITALOPRAM 20 MG TAB PO SCH (09:01)
[2017-10-02] MEDS: CLOPIDOGREL 75 MG TABLET PO SCH (09:02)
[2017-10-02] MEDS: ISOSORBIDE MONO SR 30 MG TAB PO SCH (09:02)
--- NOTE | 2017-10-02 13:56 | PN ---
Date of Progress Note: 10/02/2017 Subjective: The patient seen and examined. Chart reviewed and case discussed with Dr. Miller. The patient seems more awake and alert not complaining of any pain. Appetite has improved slightly. Review of Systems: Negative except as above. Medications: Reviewed. Physical Examination: Vital Signs: Temperature 96.9, heart rate 70, blood pressure 164/83, respirations 12, O2 96% on 3 L via nasal cannula. General: Awake, alert, oriented x3. Some mild distress. Elderly female, obese. CV: S1, S2. No murmurs. Regular rate and rhythm. Peripheral pulses present. Respiratory: Some diminished breath sounds at the bases. No wheezing. Gastrointestinal: Abdomen is soft, nontender, nondistended. Positive bowel sounds. No guarding or rigidity. Extremities: No clubbing, cyanosis. Trace pedal edema. Neurologic: Nonfocal. Laboratory Data: Sodium 138, potassium 4.5, chloride 102, CO2 28, BUN 87, creatinine 7.8, glucose 76 , hemoglobin A1c 4.6, uric acid 11.9, calcium 9.2, phosphorus 5.4, magnesium 2.2. WBC 5.5, H and H 9 .9 and 31.2, platelets 310, neutrophils 70%. Assessment And Plan: A 72-year-old female with: 1.Acute kidney injury. Creatinine not significantly improved. The patient states she has made some urine overnight. Appreciate Dr. Miller's input. Reviewed records from previous hospitalization at outside facility and her kidney injury is acute. Ultrasound was also reviewed, showed somewhat atro phic left kidney. Right renal cyst. No hydronephrosis from 07/18/2017. The patient still may requi re hemodialysis. We will continue to monitor creatinine level. 2.Hyperkalemia, corrected. 3.Hyperphosphatemia. 4.Coronary artery disease with recent myocardial infarction regarding a [place] heart without angina. 5.Congestive heart failure, combined systolic and diastolic dysfunction. Last known EF is 27% prior to intervention. We will resume home medications. Continue with fluid-restricted diet. 6.Diabetes mellitus type 2, non-insulin dependent. Continue sliding scale insulin and Accu-Cheks. 7.Chronic obstructive pulmonary disease. Chronic bronchitis. 8.Chronic respiratory failure, on oxygen for chronic obstructive pulmonary disease at home 3 L. 9.Hyperlipidemia. Continue statin. 10.Gastrointestinal and deep venous thrombosis prophylaxis with PPI and Lovenox, renally dosed. SA/MODL Voice ID: [id number] Report ID: [id number]
[2017-10-02] MEDS: ENOXAPARIN 30 MG/0.3 ML SQ SCH (17:16)
[2017-10-02] MEDS: ATORVASTATIN 40 MG TAB PO SCH (20:32)
--- NOTE | 2017-10-02 22:07 | P.PN ---
Date of Service: 10/02/17 Vital Signs Temp Pulse Resp BP Pulse Ox 97.5 F 70 18 113/66 100 10/02/17 20:00 10/02/17 20:32 10/02/17 20:00 10/02/17 20:32 10/02/17 20:00 Medications Acetaminophen (Tylenol -Extra Strength) 500 mg PO Q4H PRN PRN Reason: [id number] Stop: 10/30/17 13:38 Aspirin (Aspirin Chewable) 81 mg PO DAILY KATIA Stop: 10/31/17 09:01 Last Admin: 10/02/17 09:01 Dose: 81 mg Atorvastatin Calcium (Lipitor) 40 mg PO BEDTIME [facility] Stop: 10/30/17 21:01 Last Admin: 10/02/17 20:32 Dose: 40 mg Clopidogrel Bisulfate (Plavix) 75 mg PO DAILY [facility] Stop: 10/31/17 09:01 Last Admin: 10/02/17 09:02 Dose: 75 mg Dextrose (Dextrose 50% Syringe) 12.5 gm IV PRN PRN; Protocol PRN Reason: HYPOGLYCEMIA Stop: 10/31/17 15:11 Enoxaparin Sodium (Lovenox 30 Mg Inj) 30 mg SQ DAILY 5 PM [facility] Stop: 10/31/17 17:01 Last Admin: 10/02/17 17:16 Dose: 30 mg Enteral Nutritional Formula (Glucerna Shake) 237 ml PO BID [facility] Stop: 10/31/17 21:01 Last Admin: 10/02/17 20:33 Dose: Not Given Escitalopram Oxalate (Lexapro) 10 mg PO DAILY [facility] Stop: 10/31/17 09:01 Last Admin: 10/02/17 09:01 Dose: 10 mg Glucagon (Glucagen) 1 mg IM 1X PRN; Protocol PRN Reason: HYPOGLYCEMIA Stop: 10/31/17 15:11 Sodium Chloride (Ns 1000 Ml Ivbag) 1,000 mls @ 100 mls/hr IV .Q10H [facility] Stop: 10/30/17 14:01 Last Admin: 10/02/17 16:00 Dose: Not Given Insulin Human Regular (Novolin -R) 0 unit SQ ACHS [facility]; Protocol Stop: 10/31/17 16:31 Last Admin: 10/02/17 20:28 Dose: Not Given Isosorbide Mononitrate (Imdur) 30 mg PO DAILY [facility] Stop: 10/31/17 09:01 Last Admin: 10/02/17 09:02 Dose: 30 mg Metoprolol Tartrate (Lopressor) 25 mg PO BID [facility] Stop: 10/30/17 21:01 Last Admin: 10/02/17 20:32 Dose: 25 mg Morphine Sulfate (Morphine Sulfate) 2 mg IV Q4H PRN PRN Reason: PAIN MODERATE TO SEVERE Stop: 10/30/17 13:38 Nitroglycerin (Nitrostat) 0.4 mg SL UD PRN PRN Reason: CHEST PAIN Stop: 10/30/17 13:48 Ondansetron HCl (Zofran) 4 mg IV Q6H PRN PRN Reason: NAUSEA / VOMITING Stop: 10/30/17 20:09 Last Admin: 09/30/17 20:18 Dose: 4 mg Sodium Chloride (Normal Saline Flush) 10 ml IV BID [facility] Stop: 10/30/17 21:01 Last Admin: 10/02/17 20:33 Dose: Not Given Assessment/ Plan: Nephrology. Feeling better today. Appetite improving. CPS stable without CP or SOB. No acute events overnight. Vitals, medications, blood work and imaging reviewed in the chart. General: Oriented x3, Cooperative HEENT: Atraumatic Neck: Supple Respiratory: Clear to auscultation bilaterally, Normal air movement Cardiovascular: No edema, Regular rate/rhythm Gastrointestinal: Soft and benign, Non-distended, Tenderness Musculoskeletal: No clubbing, No contractures Integumentary: No rashes, No cyanosis Neurological: Normal speech Laboratory Data (last 24 hrs) 09/30/17 12:02: PT 11.2, INR 0.95, APTT 32.6 09/30/17 12:02: WBC 6.8, Hgb 10.4 L, Hct 32.4 L, Plt Count 305 09/30/17 12:02: Sodium 130 L, Potassium 5.4 H, BUN 83 H, Creatinine 8.20 H* D, Glucose 95, Magnesium 2.0, Total Bilirubin 0.3, AST 20, ALT 15, Alkaline Phosphatase 41 L Imagings Data: EXAM DESCRIPTION: RAD - Chest Single View - 09/30/2017 12:54 pm CLINICAL HISTORY: CHEST PAIN Chest pain. COMPARISON: Chest Single View dated 07/18/2017; Chest Single View dated 2017; Chest Single View dated 04/23/2017; Chest Single View dated 06/11/2016; Chest Abd Pelvis Wo Con dated 04/27/2017 FINDINGS: Portable technique limits examination quality. The lungs are grossly clear. The heart is normal in size. No displaced fractures.Prominent tortuosity of the thoracic aorta, similar to comparative studies. IMPRESSION: No acute intrathoracic process suspected. Conclusions/Impression: A/ DARRYL with oliguria suspicious for ATN. FENA 3.08% Hyponatremia. Hyperkalemia. CKD III. HTN with CKD. Anemia in chronic illness. Systolic CHF, chronic. ThoracoAbdominal Aortic Aneurysm. P/ Continue current POC and Medications. Agree with IVF. Monitor volume status. Consider a renal ultrasound if no renal improvement. May need to consider dialysis if no improvement. HBV panel pending. No NSAIDs. AM labs. Daily weight. Case discussed with Dr. Samuel.
[2017-10-03] MEDS: NA CHLORIDE 0.9% 1,000 ML IV SCH (02:00)
[2017-10-03 05:19] LABS: Absolute Lymphocytes (CBC) 1.2 K/uL (0.7-4.9); Absolute Monocytes 0.4 K/uL (0.1-1.3); Absolute Neutrophil 3.4 K/uL (1.8-8.0); Basophils % 2.1 % (0-1.3); Eosinophils % 3.5 % (0-4.4); Hematocrit 28.5 % (36.0-45.0); Lymphocytes % 22.4 % (15.3-44.8); MCV 94.9 fL (80-100); MPV 8.7 fL (7.6-11.3); Monocytes % 7.2 % (3.3-12.3); RBC Red Blood Cell Count 3.01 M/uL (3.86-4.86)
[2017-10-03 05:43] LABS: Potassium 3.8 mmol/L (3.5-5.1); Uric Acid 10.9 mg/dL (2.6-6.0)
[2017-10-03] MEDS: INSULIN -REGULAR HUMAN 50 UNIT/0.5 ML ML SQ SCH ×4 (07:30→21:00)
[2017-10-03] MEDS: ISOSORBIDE MONO SR 30 MG TAB PO SCH (08:11)
[2017-10-03] MEDS: CLOPIDOGREL 75 MG TABLET PO SCH (08:11)
[2017-10-03] MEDS: ASPIRIN 81 MG CHEWABLE TABLET PO SCH (08:11)
[2017-10-03] MEDS: ESCITALOPRAM 20 MG TAB PO SCH (08:11)
[2017-10-03] MEDS: GLUCERNA SHAKE 237 ML CAN PO SCH ×2 (08:12→21:29)
[2017-10-03] MEDS: METOPROLOL TAR 25 MG TAB PO SCH ×2 (08:12→21:28)
[2017-10-03] MEDS ORDERED: ISOSORBIDE MONO SR 30 MG TAB PO SCH (10:04)
[2017-10-03] MEDS: NACHLORIDE 0.45% 1,000 ML IV SCH ×2 (11:00→21:00)
[2017-10-03] MEDS: ENOXAPARIN 30 MG/0.3 ML SQ SCH (16:17)
--- NOTE | 2017-10-03 19:39 | PN ---
Date of Progress Note: 10/03/2017 The patient continues to improve both symptomatically and clinically. Creatinine is down just over 5 . She is still not eating well. However, she states she has been drinking more and not mobilized qu ite as much as prior to this episode. Therefore, PT consult will be obtained. Plan would be to restart possibly a midline IV if in fact her creatinine stabilizes or improves, this may not be necessary. This issue was discussed at length with the patient. HR/MODL Voice ID: [id number] Report ID: [id number]
--- NOTE | 2017-10-03 21:03 | P.PN ---
Date of Service: 10/03/17 Vital Signs Temp Pulse Resp BP Pulse Ox 96.9 F 81 12 107/73 98 10/03/17 16:00 10/03/17 16:00 10/03/17 16:00 10/03/17 16:00 10/03/17 16:00 Medications Acetaminophen (Tylenol -Extra Strength) 500 mg PO Q4H PRN PRN Reason: [id number] Stop: 10/30/17 13:38 Aspirin (Aspirin Chewable) 81 mg PO DAILY [facility] Stop: 10/31/17 09:01 Last Admin: 10/03/17 08:11 Dose: 81 mg Atorvastatin Calcium (Lipitor) 40 mg PO BEDTIME [facility] Stop: 10/30/17 21:01 Last Admin: 10/02/17 20:32 Dose: 40 mg Clopidogrel Bisulfate (Plavix) 75 mg PO DAILY [facility] Stop: 10/31/17 09:01 Last Admin: 10/03/17 08:11 Dose: 75 mg Dextrose (Dextrose 50% Syringe) 12.5 gm IV PRN PRN; Protocol PRN Reason: HYPOGLYCEMIA Stop: 10/31/17 15:11 Enoxaparin Sodium (Lovenox 30 Mg Inj) 30 mg SQ DAILY 5 PM [facility] Stop: 10/31/17 17:01 Last Admin: 10/03/17 16:17 Dose: 30 mg Enteral Nutritional Formula (Glucerna Shake) 237 ml PO BID [facility] Stop: 10/31/17 21:01 Last Admin: 10/03/17 08:12 Dose: 237 ml Escitalopram Oxalate (Lexapro) 10 mg PO DAILY [facility] Stop: 10/31/17 09:01 Last Admin: 10/03/17 08:11 Dose: 10 mg Glucagon (Glucagen) 1 mg IM 1X PRN; Protocol PRN Reason: HYPOGLYCEMIA Stop: 10/31/17 15:11 Sodium Chloride (Sodium Chloride 0.45%) 1,000 mls @ 100 mls/hr IV .Q10H [facility] Stop: 11/02/17 11:01 Insulin Human Regular (Novolin -R) 0 unit SQ ACHS [facility]; Protocol Stop: 10/31/17 16:31 Last Admin: 10/03/17 16:08 Dose: Not Given Isosorbide Mononitrate (Imdur) 30 mg PO DAILY [facility] Stop: 10/31/17 09:01 Metoprolol Tartrate (Lopressor) 25 mg PO BID [facility] Stop: 10/30/17 21:01 Last Admin: 10/03/17 08:12 Dose: Not Given Morphine Sulfate (Morphine Sulfate) 2 mg IV Q4H PRN PRN Reason: PAIN MODERATE TO SEVERE Stop: 10/30/17 13:38 Nitroglycerin (Nitrostat) 0.4 mg SL UD PRN PRN Reason: CHEST PAIN Stop: 10/30/17 13:48 Ondansetron HCl (Zofran) 4 mg IV Q6H PRN PRN Reason: NAUSEA / VOMITING Stop: 10/30/17 20:09 Last Admin: 09/30/17 20:18 Dose: 4 mg Sodium Chloride (Normal Saline Flush) 10 ml IV BID [facility] Stop: 10/30/17 21:01 Last Admin: 10/03/17 08:13 Dose: Not Given Assessment/ Plan: Nephrology. Doing well. Appetite good. CPS stable without CP or SOB. No acute events overnight. Vitals, medications, blood work and imaging reviewed in the chart. General: Oriented x3, Cooperative HEENT: Atraumatic Neck: Supple Respiratory: Clear to auscultation bilaterally, Normal air movement Cardiovascular: No edema, Regular rate/rhythm Gastrointestinal: Soft and benign, Non-distended, Tenderness Musculoskeletal: No clubbing, No contractures Integumentary: No rashes, No cyanosis Neurological: Normal speech Laboratory Data (last 24 hrs) 09/30/17 12:02: PT 11.2, INR 0.95, APTT 32.6 09/30/17 12:02: WBC 6.8, Hgb 10.4 L, Hct 32.4 L, Plt Count 305 09/30/17 12:02: Sodium 130 L, Potassium 5.4 H, BUN 83 H, Creatinine 8.20 H* D, Glucose 95, Magnesium 2.0, Total Bilirubin 0.3, AST 20, ALT 15, Alkaline Phosphatase 41 L Imagings Data: EXAM DESCRIPTION: RAD - Chest Single View - 09/30/2017 12:54 pm CLINICAL HISTORY: CHEST PAIN Chest pain. COMPARISON: Chest Single View dated 07/18/2017; Chest Single View dated 2017; Chest Single View dated 04/23/2017; Chest Single View dated 06/11/2016; Chest Abd Pelvis Wo Con dated 04/27/2017 FINDINGS: Portable technique limits examination quality. The lungs are grossly clear. The heart is normal in size. No displaced fractures.Prominent tortuosity of the thoracic aorta, similar to comparative studies. IMPRESSION: No acute intrathoracic process suspected. Conclusions/Impression: A/ DARRYL without oliguria suspicious for ATN. FENA 3.08% Hyponatremia. Hyperkalemia. CKD III. HTN with CKD. Anemia in chronic illness. Systolic CHF, chronic. ThoracoAbdominal Aortic Aneurysm. P/ Continue current POC and Medications. Continue IVF. Consider a renal ultrasound if no renal improvement. No NSAIDs. AM labs. Daily weight.
[2017-10-03] MEDS: ATORVASTATIN 40 MG TAB PO SCH (21:29)
[2017-10-04 05:08] LABS: Absolute Lymphocytes (CBC) 1.1 K/uL (0.7-4.9); Absolute Monocytes 0.4 K/uL (0.1-1.3); Absolute Neutrophil 3.2 K/uL (1.8-8.0); Basophils % 1.3 % (0-1.3); Hematocrit 26.4 % (36.0-45.0); Lymphocytes % 22.8 % (15.3-44.8); MCH 31.6 pg (27.0-35.0); MCV 93.6 fL (80-100); MPV 8.4 fL (7.6-11.3); RBC Red Blood Cell Count 2.81 M/uL (3.86-4.86)
[2017-10-04 05:40] LABS: Phosphorus 2.9 mg/dL (2.5-4.9); Potassium 3.8 mmol/L (3.5-5.1); Uric Acid 9.1 mg/dL (2.6-6.0)
[2017-10-04] MEDS: NACHLORIDE 0.45% 1,000 ML IV SCH (07:00)
[2017-10-04] MEDS: INSULIN -REGULAR HUMAN 50 UNIT/0.5 ML ML SQ SCH ×2 (07:30→12:16)
[2017-10-04 08:37] VITALS: O2SAT 99
[2017-10-04] MEDS: METOPROLOL TAR 25 MG TAB PO SCH (09:00)
[2017-10-04] MEDS: ASPIRIN 81 MG CHEWABLE TABLET PO SCH (09:34)
[2017-10-04] MEDS: CLOPIDOGREL 75 MG TABLET PO SCH (09:34)
[2017-10-04] MEDS: ESCITALOPRAM 20 MG TAB PO SCH (09:34)
[2017-10-04] MEDS: GLUCERNA SHAKE 237 ML CAN PO SCH (09:35)
--- NOTE | 2017-10-04 13:40 | PN ---
Date of Progress Note: 10/04/2017 The patient continues to improve again both clinically and symptomatically. Creatinine is now down t o 4. Her intake has improved, good output. She has been mobilized. Feels, after discussion of the case with Dr. Miller, she could handle her home situation. She was therefore discharged back with [facility] and PT, OT and medication changes include holding at least temporarily until seen in the o ffice next week her Norvasc, Bumex, and Apresoline. Feels a combination of dehydration and use of NS AIDs had created her acute kidney problem. This, of course, will be monitored by myself and Nephrolo gy. HR/MODL Voice ID: [id number] Report ID: [id number]
[2017-10-04 17:04] VITALS: BP 120/66; TEMP 97.3
--- NOTE | 2017-10-04 19:37 | P.PN ---
Date of Service: 10/04/17 Vital Signs Temp Pulse Resp BP Pulse Ox 97.3 F 60 18 120/66 96 10/04/17 16:00 10/04/17 16:00 10/04/17 16:00 10/04/17 16:00 10/04/17 16:00 Assessment/ Plan: Nephrology. Doing well. Appetite good. CPS stable without CP or SOB. No acute events overnight. Vitals, medications, blood work and imaging reviewed in the chart. General: Oriented x3, Cooperative HEENT: Atraumatic Neck: Supple Respiratory: Clear to auscultation bilaterally, Normal air movement Cardiovascular: No edema, Regular rate/rhythm Gastrointestinal: Soft and benign, Non-distended, Tenderness Musculoskeletal: No clubbing, No contractures Integumentary: No rashes, No cyanosis Neurological: Normal speech Laboratory Data (last 24 hrs) 09/30/17 12:02: PT 11.2, INR 0.95, APTT 32.6 09/30/17 12:02: WBC 6.8, Hgb 10.4 L, Hct 32.4 L, Plt Count 305 09/30/17 12:02: Sodium 130 L, Potassium 5.4 H, BUN 83 H, Creatinine 8.20 H* D, Glucose 95, Magnesium 2.0, Total Bilirubin 0.3, AST 20, ALT 15, Alkaline Phosphatase 41 L Imagings Data: EXAM DESCRIPTION: RAD - Chest Single View - 09/30/2017 12:54 pm CLINICAL HISTORY: CHEST PAIN Chest pain. COMPARISON: Chest Single View dated 07/18/2017; Chest Single View dated 2017; Chest Single View dated 04/23/2017; Chest Single View dated 06/11/2016; Chest Abd Pelvis Wo Con dated 04/27/2017 FINDINGS: Portable technique limits examination quality. The lungs are grossly clear. The heart is normal in size. No displaced fractures.Prominent tortuosity of the thoracic aorta, similar to comparative studies. IMPRESSION: No acute intrathoracic process suspected. Conclusions/Impression: A/ DARRYL without oliguria suspicious for ATN. FENA 3.08% Hyponatremia. Hyperkalemia. CKD III. HTN with CKD. Anemia in chronic illness. Systolic CHF, chronic. ThoracoAbdominal Aortic Aneurysm. P/ Continue current POC and Medications. No NSAIDs. AM labs. Daily weight. Case discussed with Dr. Stevens.
[2017-10-05 03:53] LABS: HBsAG Nonreactive (Nonreactive)
--- NOTE | 2017-10-05 11:37 | CON ---
Date of Consultation: 10/01/2017 The patient admitted on 09/30/2017. She was seen on 10/01/2017. Additional Admitting Physician: Oksana Samuel MD Reason For Consultation: Coronary artery disease. History Of Present Illness: Ms. Ayala is a 71-year-old woman. Has a history of diabetes, CHF, hy pertension, COPD on oxygen, recently had a stent in July 2017 at [facility]. Had a complicated co urse. Was sent to the long term from the [facility] after that. She apparently had a relatively normal creatinine before her angiography, but she came in with a creatinine of 8.0, was fo und to have acute kidney injury, ATN stage III, hyperkalemia, hyponatremia, and hypertension and she was anemic. She has a history of chronic systolic congestive heart failure. Has a history of thorac ic and aortic aneurysm. She came in with renal failure. Allergies: SHE IS ALLERGIC TO IODINE. Past Medical History: As stated above. Allergies: NONE. Review of Systems: Negative. Social History: Negative. Medications: Include Plavix, metformin, metoprolol, aspirin, Norvasc, Bumex, Imdur, and hydralazine. Physical Examination: Vital Signs: Stable. Afebrile. HEENT: Negative. Neck: Supple with no bruit. Chest: Clear. Cardiac: Revealed a regular rhythm and rate. No murmurs, gallops, or rubs. Chest: Reveals some rales at the bases. Abdomen: Benign. Extremities: Revealed 1+ edema. Diagnostic Data: As stated earlier. Impression And Plan: 1.Acute kidney injury with acute tubular necrosis, stage III. 2.Hyperkalemia and hyponatremia secondary to the renal failure. 3.Hypertension. 4.Anemia. 5.Acute exacerbation of chronic systolic congestive heart failure. 6.Known thoracic and aortic aneurysm, stable. 7.Chronic obstructive pulmonary disease, on oxygen. 8.Coronary artery disease, status post stent. 9.Diabetes. We will presume that her renal failure is secondary to the angiography and dye load rodney t she received during her stent. Dr. Miller is involved in the case. We will agree with her presen t management. We will hope her kidney failure improve with hydration and holding drugs that are nece ssary. There is really no need to do any more cardiac workup at this point. I will discuss the case further with Dr. Samuel, Dr. Stevens, and Dr. Miller. PHILL/CHRISTY Voice ID: [id number] Report ID: [id number]
== END 2017-10-04 18:12 | disposition home health service (06) | DRG 682 ==
LOC: ER 11:57 → ERHOLD 13:25 → 2ND 15:02
PROVIDERS: ADMIT Family Medicine; ATTEND Family Medicine
DX: N17.0 Acute kidney failure with tubular necrosis (principal); I50.23 Acute on chronic systolic (congestive) heart failure; I50.22 Chronic systolic (congestive) heart failure; E87.1 Hypo-osmolality and hyponatremia; I13.0 Hypertensive heart and chronic kidney disease with heart failure and stage 1 through stage 4 chronic kidney disease, or unspecified chronic kidney disease; J96.10 Chronic respiratory failure, unspecified whether with hypoxia or hypercapnia; E11.9 Type 2 diabetes mellitus without complications; J44.9 Chronic obstructive pulmonary disease, unspecified; Z99.81 Dependence on supplemental oxygen; I25.10 Atherosclerotic heart disease of native coronary artery without angina pectoris; Z95.5 Presence of coronary angioplasty implant and graft; E87.5 Hyperkalemia; Z91.041 Radiographic dye allergy status; Z79.84 Long term (current) use of oral hypoglycemic drugs; Z79.02 Long term (current) use of antithrombotics/antiplatelets; Z79.82 Long term (current) use of aspirin; I71.6 Thoracoabdominal aortic aneurysm, without rupture; N14.1 Nephropathy induced by other drugs, medicaments and biological substances; T50.8X5A Adverse effect of diagnostic agents, initial encounter; Y92.234 Operating room of hospital as the place of occurrence of the external cause; E11.22 Type 2 diabetes mellitus with diabetic chronic kidney disease; N18.3 Chronic kidney disease, stage 3 (moderate); D63.8 Anemia in other chronic diseases classified elsewhere; E83.39 Other disorders of phosphorus metabolism; E78.5 Hyperlipidemia, unspecified; E86.0 Dehydration; I25.2 Old myocardial infarction; Z88.5 Allergy status to narcotic agent
CPT/HCPCS: 36415; 71045; 80048; 80076; 81001; 82550; 82553; 82570; 82962; 83036; 83735; 83880; 84100; 84132; 84156; 84300; 84484; 84550; 85025; 85610; 85730; 86704; 86706; 86803; 87340; 93005; 96365; 96366; 96375; 99285; J1650; J2405; J7030

== ENCOUNTER 2017-12-08 12:42 | Inpatient (IN) | payer OTHER ==
--- OUTSIDE RECORDS SUMMARY | 2017-12-08 12:45 | XMS REPORT | Clinical Summary ---
:1945 Author Organization [facility] Address [address] [place] [address] Phone Care Team Providers Name Role Phone [...] by 9 mouth 2 (two) times daily. hydrALAZINE Take 1 tablet (25 90 tablet [...] mcg/dose 2 (two) times diskus inhaler daily. escitalopram Take 1 tablet (10 30 tablet 2 08/09/2017 oxalate (LEXAPRO) mg total) by 8 10 MG tablet mouth daily for 90 days. Hospital, Clinic, or Other Ordered Dose Route Frequency Start Date End Date Status Facility Administered Medication bumetanide (BUMEX) 1 MG IV Once 08/18/2017 08/18/2017 Ended injection 1 mg Active Problems Problem Noted Date Acute postoperative pain 07/24/2017 Polymorphic ventricular tachycardia (HCC) 07/19/2017 ST elevation myocardial infarction involving left circumflex coronary 2017 artery ([facility]) Chronic systolic heart failure ([facility]) 07/18/2017 H/O aortic aneurysm repair 06/12/2016 Overview: S/p TEVAR with Dr. 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[facility]) 06/11/2016 HTN (hypertension) 06/11/2016 T2DM (type 2 diabetes mellitus) ([facility]) 06/11/2016 Emphysema lung ([facility]) 06/11/2016 Resolved Problems Problem Noted Date Resolved Date Acute encephalopathy 07/24/2017 08/18/2017 Hypertensive urgency 07/24/2017 08/18/2017 Acute respiratory failure with hypoxemia ([facility]) 07/18/2017 08/18/2017 Acute renal failure, [...] 07/22/2017 Social Work Transplant Jey Sun Brendon, PREDICTIVE MAINTENANCE TECHNICIAN 07/22/2017 Anesthesia Event Hollis Hahn MD 07/22/2017 Procedure Pass 07/21/2017 Committee Review Transplant Hermann Cortes, PAULA 07/21/2017 Abstract Transplant Hermann Cortes, Acute combined RN systolic and diastolic congestive [...] CATH & CORONARY MD Stephen ANGIOS after 12/07/2016 Family History Medical History Relation Name Comments [...] INFLUENZA VACCINE 01/02/2018 Implants Implanted Type Area Coal Handling Supervisor Device Expiration Model / Identifier Date Serial / Lot Synergy Cardiovascular Coronary [place] [id number] 01/10/2018 [id number] / Implanted: Qty: 1 on 07/18/2017 by Oksana Stallings MD SCIENTIFIC / [id number] Procedures Procedure Name Priority Date/Time Associated Diagnosis Comments REMOVAL,IMPELLA PUMP 07/24/2017 9:00 AM Cardiogenic shock (HCC) CDT IMPELLA PERC LVAD 07/19/2017 12:16 PM Cardiac shock syndrome MCR - IP PROC ONLY CDT (HCC) L CATH & CORONARY 07/18/2017 6:36 AM SOB (shortness of ANGIOS CDT breath) after 12/07/2016 Results B N P (08/18/2017 2:44 PM)Only the most recent of7 resultswithin the time period is included. Component Value Ref Range BNP 867 (H) 0 - 100 pg/mL Specimen Performing Laboratory Blood [address] [address] Magnesium (08/18/2017 2:44 PM)Only the most recent of44 resultswithin the time period is included. Component Value Ref Range Magnesium 2.0 1.6 - 2.6 mg/dL Specimen Performing Laboratory Blood [address] [address] Basic Metabolic Panel (08/18/2017 2:44 PM)Only the [...] FOR DIALYSIS PATIENTS. Specimen Performing Laboratory Blood [address] [address] PULMONARY FUNCTION - SCAN (08/11/2017 12:52 PM)Only [...] Range POC-Glucose Meter 225 (H)Comment: TESTED AT [address] 70 - 110 mg/[place] [address] Specimen Performing Laboratory Blood [address] [address] CBC with platelet count + automated diff [...] Specimen Performing Laboratory Blood - Arm, Left [address] [address] CBC with platelet count + automated diff (08/05/2017 4:24 AM)Only the most recent of19 resultswithin the time period is included. Specimen Performing Laboratory Blood Narrative The following orders were created for panel order CBC with platelet count + automated diff. Procedure Abnormality Status --------- ------ CBC with platelet count ...[[id number]]AbnormalFinal result Please view results for these tests [...] % Specimen Performing Laboratory Blood - Arm, [address] [address] Calcium, Ionized (08/04/2017 6:14 AM)Only the most recent of16 resultswithin the time period is included. Component Value Ref Range Calcium, Ion 1.11 (L) 1.12 - 1.27 mmol/L pH, Blood 7.39 Specimen Performing Laboratory Blood - Arm, [address] [address] Reticulocyte count (08/04/2017 6:14 AM)Only the most recent of2 resultswithin the time period is included. Component Value Ref Range % Retic 8.3 (H) 0.5 - 1.7 % Specimen Performing Laboratory Blood - Arm, [address] [address] Phosphorus (08/04/2017 6:14 AM)Only the most recent of43 resultswithin the time period is included. Component Value Ref Range Phosphorus 4.3 2.3 - 4.7 mg/dL Specimen Performing Laboratory Blood - Arm, [address] [address] Ferritin (08/04/2017 6:14 AM)Only the most recent of2 resultswithin the time period is included. Component Value Ref Range Ferritin 445 (H) 5 - 275 ng/mL Specimen Performing Laboratory Blood - Arm, [address] [address] Comprehensive metabolic panel (08/02/2017 4:28 AM)Only the [...] Specimen Performing Laboratory Blood - Arm, Right [address] [address] XR chest 1 view portable / bedside [...] MD Report Verified Date/Time:08/01/2017 15:00:05 Reading Location: [facility] B1 C013W Consult Reading Room Procedure Note Interface, External Ris In - 08/01/2017 3:39 PM CDT FINAL REPORT Chest one view compared to July 28, 2017 Discussion: There is cardiac prominence. Lungs are grossly clear. No effusion or pneumothorax. There is either hiatal hernia or aortic tortuosity. IMPRESSIONS: No significant change. Signed: Tony Hsu MD Report Verified Date/Time: 08/01/2017 15:00:05 Reading Location: [facility] B1 C013W Consult Reading Room (Hemogram [...] Specimen Performing Laboratory Blood - Arm, Left [address] [address] Potassium (07/29/2017 2:42 PM)Only the most recent of9 resultswithin the time period is included. Component Value Ref Range Potassium 3.7 3.5 - 5.1 meq/L Specimen Performing Laboratory Blood - Arm, Right [address] [address] Blood gas, arterial (07/29/2017 11:25 AM)Only the [...] 36.0 % Specimen Performing Laboratory Blood, Arterial [address] [address] Pulmonary Funct Lab bedside spirometry (07/28/2017 12:06 PM) Narrative Cayden Samuels, SYRUP MIXER HELPER, ORAL SURGERY TECHNICIAN 07/28/2017 12:06 PM [facility] PFT CHARTING REPORT Infection Control/Hand Hygiene procedures followed throughout the encounter with patient: Yes Patient Identification Method: Patient name verified on armband, and Medical record on armband, Is the order complete?: Yes Account ID#: [id number] Patient Name: Durga Cortez Birthdate: 1945 Age: [...] - 220 U/L Specimen Performing Laboratory Blood [address] [address] Hepatic function panel (07/28/2017 4:11 AM)Only the [...] - 55 U/L Specimen Performing Laboratory Blood [address] [address] Clostridium difficile GDH Toxin (07/27/2017 5:07 PM) Component Value Ref Range C. Difficle Toxin Negative Negative C. Difficile GDH Antigen NegativeComment: No indication of Clostridium Negative difficile infection and no colonization. Discontinue enteric isolation and therapy. Specimen Performing Laboratory Stool [address] [address] Narrative Testing performed by [employer] Rapid Cassette Assay.For GDH, published sensitivity of the assay is 98.7% compared to cytotoxicity testing.For Toxin AB, published sensitivity is 87.8% and specificity 99.4% compared to cytotoxicity testing. Verification of kit performance was done by the [facility] Microbiology Lab prior to clinical use. Occult blood, stool (07/27/2017 5:07 PM)Only the most recent of2 resultswithin the time period is included. Component Value Ref Range Occult blood Negative Negative Specimen Performing Laboratory Stool [address] [address] Oxygen saturation, measured (07/27/2017 10:21 AM)Only the most recent of7 resultswithin the time period is included. Component Value Ref Range O2 Saturation (Measured) 59.6 % Specimen Performing Laboratory Blood - Central Venous Line [address] [address] Lactic acid, venous, whole blood (07/27/2017 10:21 AM)Only the most recent of2 resultswithin the time period is included. Component Value Ref Range Lactate, Venous 0.7 0.5 - 2.2 mmol/L Specimen Performing Laboratory Blood - Central Venous Line [address] [address] Narrative Effective 08/06/2015: Units/Reference Range Change New: 0.5-2.2 mmol/LPrevious: 5-20 mg/dL ECHOCARDIOGRAM REPORT - SCAN (07/27/2017 9:20 AM)Only the most recent of6 resultswithin the time period is included.Procalcitonin (07/27/2017 2:31 AM) Only the most recent of2 resultswithin the time period is included. Component Value Ref Range Procalcitonin 0.28 (H) <0.05 ng/mL Specimen Performing Laboratory Blood [address] [address] Narrative SEPSIS RISK (ng/mL) Low:0.05-0.50 Intermediate: 0.51-2.00 High: >=2.01 2D Echo W/Doppler(CW/PW/Color) (07/26/2017 8:00 PM)Only the most recent of5 resultswithin the time period is included. Component Value Ref Range Ejection Fraction Specimen Performing Laboratory [facility] ECHO HEARTLAB MKCKPRINCESS CPACS Narrative Transthoracic Echocardiography Report (TTE) Demographics Patient Name Nicole CORTEZ of Study07/26/2017 [id number] Gender Female Visit Number [id number] Race Black [id number] Number [id number] Number Date of Birth1945 Ron Mcclure MD Physician Age71 year(s) Corporate Counsel Interpreting Physician MingoMD Fellow MOHINI Steele Procedure [...] of Study 07/26/2017 Gender Female Visit Number [id number] Race Black Room Number C826 Number Date of 1945 Referring Consuelo Mcclure MD Physician Age 71 year(s) Corporate Counsel Interpreting Gloria Ricci Physician Fellow MOHINI Steele Procedure Type of Study [...] - 105 mg/dL Specimen Performing Laboratory Blood [address] [address] Glucose-Stat Lab (07/24/2017 5:08 PM)Only the most recent of9 resultswithin the time period is included. Component Value Ref Range Glucose 208 (H) 70 - 110 mg/dL Specimen Performing Laboratory Blood, Arterial [address] [address] Prepare RBC (07/24/2017 3:53 PM) Component Value Ref Range CROSSMATCH COMPATIBLE Unit ABO A Pos UNIT NUMBER [id number] Status RETURNED FROM ISSUE Blood Bank Product RED BLOOD CELLS PRODUCT CODE W3376X48 CROSSMATCH COMPATIBLE Unit ABO A Pos UNIT NUMBER [id number] Status RETURNED FROM ISSUE Blood Bank Product RED BLOOD CELLS PRODUCT CODE [id number] CROSSMATCH COMPATIBLE Unit ABO A Pos UNIT NUMBER [id number] Status RETURNED FROM ISSUE Blood Bank Product RED BLOOD CELLS PRODUCT CODE [id number] CROSSMATCH COMPATIBLE Unit ABO A Pos UNIT NUMBER [id number] Status RETURNED FROM ISSUE Blood Bank Product RED BLOOD CELLS PRODUCT CODE [id number] Specimen Performing Laboratory [facility] [place] [facility] CRITICAL LABS (ABG,NA,K,H&H,GLUCOSE) (07/24/2017 12:50 PM)Only the most recent of5 resultswithin the time period is included. Specimen Performing Laboratory Blood, Arterial Narrative The following orders were created for panel order RRL CRITICAL LABS (ABG,NA,K,H&H,GLUCOSE). Procedure Abnormality Status --------- ------ Blood gas, arterial[[id number]]AbnormalFinal result Sodium Na-Stat Lab[[id number]] NormalFinal result Potassium-Stat Lab[[id number]] NormalFinal result Glucose-Stat Lab[[id number]] AbnormalFinal result HGB/HCT (H&H)-Stat Lab[[id number]] Abnormal Final result Please view results for these tests on the individual orders. Potassium-Stat Lab (07/24/2017 12:50 PM)Only the most recent of7 resultswithin the time period is included. Component Value Ref Range Potassium 3.7 3.6 - 5.5 meq/L Specimen Performing Laboratory Blood, Arterial [address] [address] Sodium Na-Stat Lab (07/24/2017 12:50 PM)Only the most recent of5 resultswithin the time period is included. Component Value Ref Range Sodium 140 135 - 148 meq/L Specimen Performing Laboratory Blood, [address] [address] HGB/HCT (H&H)-Stat Lab (07/24/2017 12:50 PM)Only the most recent of6 resultswithin the time period is included. Component Value Ref Range Hemoglobin 8.8 (L) 12.0 - 15.0 g/dL Hematocrit 26.0 (L) 36.0 - 45.0 % Specimen Performing Laboratory Blood, [address] [address] Lactic acid, arterial, whole blood (07/24/2017 12:50 PM)Only the most recent of8 resultswithin the time period is included. Component Value Ref Range Lactate, Art 0.7 0.5 - 2.2 mmol/L Specimen Performing Laboratory Blood, Arterial [address] [address] Narrative Effective 08/06/2015: Units/Reference Range Change New: 0.5-2.2 mmol/LPrevious: 5-20 mg/dL PT/aPTT (07/24/2017 2:26 AM) Component Value Ref Range Protime 16.7 (H) 11.7 - 14.7 seconds INR 1.4 <=5.9 PTT 78.5 (H) 22.5 - 36.0 seconds Specimen Performing Laboratory Blood [address] [address] Narrative RECOMMENDED COUMADIN/WARFARIN INR THERAPY RANGES STANDARD [...] - 20.0 ug/mL Specimen Performing Laboratory Blood [address] [address] Narrative If vancomycin trough level > 20 mcg/mL, hold next vancomycin dose, and contact MD and pharmacist. aPTT (07/23/2017 2:17 PM)Only the most recent of16 resultswithin the time period is included. Component Value Ref Range PTT 69.5 (H) 22.5 - 36.0 seconds Specimen Performing Laboratory Blood [address] [address] Prepare Leuko-Red RBC (07/22/2017 11:54 PM) Component Value Ref Range CROSSMATCH COMPATIBLE Unit ABO A Pos UNIT NUMBER [id number] Status TRANSFUSED Blood Bank Product RED BLOOD CELLS PRODUCT CODE [id number] Specimen Performing Laboratory Other [facility] [place] Creatinine clearance (07/22/2017 7:55 PM) Component Value Ref Range Creatinine Clearance 45.8 (L) 70.0 - 140.0 mL/min Volume, Urine 3400 ml Creatinine, Ur 36.8 mg/dL Pathologist: Анна Encarnacion MD (electronic signature) Patient Height 165.1 cm Patient Weight 84.100 kg Specimen Performing Laboratory Urine [address] [address] PERIPHERAL VASCULAR REPORT - SCAN (07/22/2017 7:20 AM)Only the most recent of2 resultswithin the time period is included.T Spot TB (07/22/2017 4:47 AM) Component Value Ref Range T-Spot TB Negative Neg Ctrl Spot Count 0 Panel A Spot 0 Panel B Spot [address] 0 Scan Result 0 Specimen Performing Laboratory Blood [facility] [address] [facility], [address] [place] [address] Transfuse Leuko-Red RBC (07/21/2017 7:00 PM)Only the most recent of2 resultswithin the time period is included.Blood typing, automated - at seperate draw time from initial type and screen (07/21/2017 5:21 PM) Component Value Ref Range ABO/RH AUTOMATED (BEAKER) A POSITIVE Specimen Performing Laboratory Blood [address] [address] Drug screen, urine, comprehensive (07/21/2017 4:19 PM) Specimen Performing Laboratory Urine [facility] [address] [place] [address] HLA Typing CII (07/21/2017 4:02 PM) Component [...] HLA-AG Report Comments Specimen Performing Laboratory Blood [facility] HLA TESTING ONE [facility] [place], [place]: [id number], CLIA#[id number] CAP#[id number] UNOS#[id number] [address] HLA Typing CI (07/21/2017 4:02 PM) Component Value Ref Range HLA-A AG1 33 HLA-A AG2 68 HLA-B AG1 7 HLA-B AG2 8 HLA-C AG1 15 HLA-C AG2 10 HLA-B BW1 6 HLA-B BW2 6 HLA-AG Notes HLA-AG Report Comments Specimen Performing Laboratory Blood [facility] HLA TESTING ONE [facility] [place], [place]: DEYANIRA, CLIA#[id number] CAP#[id number] [id number] [address] Creatinine Clearance (07/21/2017 4:02 PM) Specimen Performing Laboratory Other Narrative The following orders were created for panel order Creatinine Clearance. Procedure Abnormality Status --------- ------ Creatinine[[id number]] AbnormalFinal result Creatinine clearance[[id number]] Abnormal Final result Please view results for these tests on the individual orders. Type and screen, automated (07/21/2017 4:02 PM) Component Value Ref Range ABO/RH AUTOMATED (BEAKER) A POSITIVE Ab Scrn NEGATIVE Specimen Performing Laboratory Blood [address] [address] Cytomegalovirus antibody, IgM (07/21/2017 4:02 PM) Component Value Ref Range CMV IgM Negative Specimen Performing Laboratory Blood [address] [address] ROSLYN Titer & Pattern (07/21/2017 4:02 PM) Component Value Ref Range ROSLYN Titer 1:640 ROSLYN Pattern Homogeneous Specimen Performing Laboratory [address] [address] Troponin I (07/21/2017 4:02 PM)Only the most recent of6 resultswithin the time period is included. Component Value Ref Range Troponin I 45.70 (HH) 0.00 - 0.03 ng/mL Specimen Performing Laboratory Blood [address] [address] Narrative Troponin I (TnI) levels must be [...] VCA IgM Negative Specimen Performing Laboratory Blood [address] [address] EBV-VCA antibody, IgG (07/21/2017 4:02 PM) Component Value Ref Range EBV VCA IgG Positive Specimen Performing Laboratory Blood [address] [address] Vitamin D, 25-Hydroxy (07/21/2017 4:02 PM) Component Value Ref Range Vitamin D 25-Hydroxy 5.8 (L) 6.6 - 49.9 ng/mL Specimen Performing Laboratory [address] [address] Narrative Effective 01/12/2017: Reference Range Change New: 6.6-49.9 ng/mL Previous: 13.0-47.8 ng/mL Recommended Vitamin D Target Range: 30.0-40.0 ng/mL Cytomegalovirus antibody, IgG (07/21/2017 4:02 PM) Component Value Ref Range CMV IgG Negative Specimen Performing Laboratory Blood [address] [address] Direct AHG (IVETTE)/Direct Karen (07/21/2017 4:02 PM) Component Value Ref Range Direct AHG-IGG NEGATIVE Direct AHG-C3B, C3D NEGATVIE Specimen Performing Laboratory [address] [address] Varicella zoster antibody, IgG (07/21/2017 4:02 PM) Component Value Ref Range Varicella IgG 2.3 Al Specimen Performing Laboratory Blood [address] [address] Narrative VARICELLA ZOSTER RESULT INTERPRETATIONS: <=0.8 AlNonreactive:Presumed non-immune to VZV 0.9-1.0 AlEquivocal >=1.1 AlReactive:Presumed immune to VZV Anti-Nuclear Antibody (ROSLYN) (07/21/2017 4:02 PM) Component Value Ref Range ROSLYN Positive (A) Negative Specimen Performing Laboratory [address] [address] Uric acid (07/21/2017 4:02 PM) Component Value Ref Range Uric Acid 8.2 (H) 2.6 - 7.2 mg/dL Specimen Performing Laboratory Blood [address] [address] Transferrin (07/21/2017 4:02 PM) Component Value Ref Range Transferrin 166 (L) 174 - 382 mg/dL Specimen Performing Laboratory [address] [address] Protein electrophoresis, serum (07/21/2017 4:02 PM) Component [...] 6.0 - 8.3 gm/dL Specimen Performing Laboratory [address] [address] Prealbumin (07/21/2017 4:02 PM) Component Value Ref Range Prealbumin 14 14 - 45 mg/dL Specimen Performing Laboratory [address] [address] Iron, serum (07/21/2017 4:02 PM) Component Value Ref Range Iron 57 40 - 160 ug/dL Specimen Performing Laboratory [address] [address] Gamma Glutamyl Transferase (GGT) (07/21/2017 4:02 PM) Component Value Ref Range GGT 52 9 - 64 U/L Specimen Performing Laboratory [address] [address] Creatinine (07/21/2017 4:02 PM) Component Value Ref Range Creatinine 2.17 (H) 0.57 - 1.25 mg/dL EGFR 27Comment: ESTIMATED GFR IS NOT ACCURATE mL/min/1.73 sq m CREATININE CLEARANCE IN PREDICTING GLOMERULAR FILTRATION RATE. ESTIMATED GFR IS NOT APPLICABLE FOR DIALYSIS PATIENTS. Specimen Performing Laboratory Blood [address] [address] Amylase (07/21/2017 4:02 PM) Component Value Ref Range Amylase 228 (H) 25 - 125 U/L Specimen Performing Laboratory Blood [address] [address] Lipid panel (07/21/2017 4:02 PM) Component Value Ref Range Triglycerides 122 mg/dL Cholesterol 204 mg/dL HDL 85 mg/dL LDL Calculated 95 mg/dL Specimen Performing Laboratory Blood [address] [address] Narrative Triglyceride Reference Range: Low Risk <150 [id number] High Risk 200-499 Very High Risk>=500 Cholesterol Reference Range: Low Risk <200 [id number] High Risk>240 HDL Cholesterol Reference Range: Low Risk >=60 High Risk <40 LDL Cholesterol Reference Range: Optimal<100 Near Jjgwapc565-638 Lbuxuwylxd305-106 Maxk098-351 Very High >=190 Hepatitis A antibody, IgG (07/21/2017 4:01 PM) Component Value Ref Range Hep A IgG Reactive (A) Nonreactive Specimen Performing Laboratory Blood [address] [address] HIV-1 Antigen with HIV-1/2 Antibody (07/21/2017 4:01 PM) Component Value Ref Range HIV-1 Antigen with HIV 1&2 Antibody Nonreactive Nonreactive Specimen Performing Laboratory Blood [address] [address] Toxoplasma gondii antibody, IgM (07/21/2017 4:01 PM) Component Value Ref Range Toxoplasma gondii IgM Negative Specimen Performing Laboratory Blood [address] [address] Herpes virus antibody, IgM (07/21/2017 4:01 PM) Component Value Ref Range Herpes Virus IGM Negative Specimen Performing Laboratory [address] [address] Narrative HSV IgM 1=NEGATIVE HSV IgM 2=NEGATIVE Hepatitis panel, acute (07/21/2017 4:01 PM) Component Value Ref Range Hep A IgM Nonreactive Nonreactive Hep B C IgM Nonreactive Nonreactive Hepatitis C Ab Nonreactive Nonreactive hepatitis B Surface Ag Nonreactive Nonreactive Specimen Performing Laboratory Blood [address] [address] Hepatitis B core antibody, total (07/21/2017 4:01 PM) Component Value Ref Range Hep B Core Total Ab Nonreactive Nonreactive Specimen Performing Laboratory Blood [address] [address] Herpes virus antibody, IgG (07/21/2017 4:01 PM) Component Value Ref Range Herpes Virus IGG Negative Specimen Performing Laboratory Blood [address] [address] Narrative HSV IgG 1=NEGATIVE HSV IgG 2=NEGATIVE Toxoplasma gondii antibody, IgG (07/21/2017 4:01 PM) Component Value Ref Range Toxoplasma gondii IgG Negative Specimen Performing Laboratory [address] [address] RPR (07/21/2017 4:01 PM) Component Value Ref Range RPR Nonreactive Nonreactive Specimen Performing Laboratory [address] [address] Arterial doppler legs bilateral (07/21/2017 3:15 PM) Component Value Ref Range Ejection Fraction Specimen Performing Laboratory [facility] ECHO HEARTLAB MKCKESSON CPACS Impressions Right Impression [...] + + + + ------ -----+ !Prox RO[address] TRAIN DRIVER ! ! 14.9 !! ! + + + + + ------ -----+ !Mid ROAD TRAIN DRIVER ! !31.8 ! ! ! + + + + + ------ -----+ !Dist ROAD TRAIN DRIVER ! ! 37.3 !17.3! ! + + [...] Patient Name DANA, Date of Study07/21/2017 DURGA [id number] 71 Visit Number [id number] Female Accession Number [id number] of Birth1945 [facility] Room [id number] Physician Moshe RhodesInterpreviviana Mooney MD, RVT Zach [...] Study 07/21/2017 DURGA Age 71 Visit Number [id number] Gender Female Accession Number [id number] Date of 1945 Referring JUSTYN LEVY Room Number 2C34 Physician Corporate Counsel Aga Mooney MD, RVT Physician GERARDO Duran [...] + + + +------- + + !Pro[address] RO[address] TRAIN DRIVER ! !14.9 ! ! ! + + + +------- + + !Mid ROAD TRAIN DRIVER ! !31.8 ! ! ! + + + +------- + + !Dist ROAD TRAIN DRIVER ! !37.3 !17.3 ! ! + + [...] Specimen Performing Laboratory [facility] Impressions Right Impression 1. There is <50% [...] Patient Name DANA, Date of Study07/21/2017 DURGA [id number] 71 Visit Number [id number] Female Accession Number [id number] of Birth1945 Ramona Gibbs [id number] Physician SonographMagdy Tejedaterpreting Sunny Mooney MD, RVT [...] Study 07/21/2017 DURGA Age 71 Visit Number [id number] Gender Female Accession Number [id number] Date of 1945 Referring Justyn Levy MD Room Number 2C34 Physician Corporate Counsel Kindra Duran Interpreting Sunny Mooney MD, RVT [...] 44.9 % Specimen Performing Laboratory Blood [facility] [address] [address] Limited 2D Echocardiogram (07/20/2017 10:01 AM) Component Value Ref Range Ejection Fraction Specimen Performing Laboratory [facility] ECHO HEART[facility] MKCKESSON [facility] Narrative Transthoracic Echocardiography Report (TTE) Demographics Patient Name DAAN, Date of Study 07/20/2017 DURGA [id number] Female Visit Number [id number] Black [id number] Room Number 2C34 Number Date of Birth1945Referring Physician Lauren Mckinney Age71 year(s)Corporate Counsel Levy Santiago [facility] AnalystAriadna Interpreting Ubaldo Aguila Physician Procedure Type [...] pressure by IVC dynamics 3 mmHg . [facility] Circ SupportAn Impella percutaneous LVAD is present. [...] Study 07/20/2017 DURGA Gender Female Visit Number [id number] Race Black Room Number 2C34 Number Date of 1945 Referring Physician Lauren Mckinney Age 71 year(s) Corporate Counsel Levy Santiago [employer] Cashier Luisa Interpreting Ubaldo Aguila Physician Procedure Type [...] pressure by IVC dynamics 3 mmHg . [facility] Circ Support An Impella percutaneous LVAD is [...] Specimen Performing Laboratory Urine - Urine, [place] [address] [address] Blood culture (07/20/2017 7:10 AM)Only the most recent of4 resultswithin the time period is included. Component Value Ref Range Result No growth in 5 days Specimen Performing Laboratory Blood - Line, Venous [address] [address] Prothromin time/INR (07/19/2017 3:48 PM)Only the most recent of3 resultswithin the time period is included. Component Value Ref Range Protime 16.4 (H) 11.7 - 14.7 seconds INR 1.3 <=5.9 Specimen Performing Laboratory Blood [address] [address] Narrative RECOMMENDED COUMADIN/WARFARIN INR THERAPY RANGES STANDARD [...] - 434 mg/dl Specimen Performing Laboratory Blood [address] [address] POC ACTIVATED CLOTTING TIME (07/19/2017 1:29 PM)Only the most recent of4 resultswithin the time period is included. Component Value Ref Range Activated Clotting Time 131Comment: TESTED AT [address] sec [id number] Specimen Performing Laboratory Blood [address] [address] Creatine Kinase (CK), Total and MB (07/19/2017 11:24 AM) Component Value Ref Range Total CK 2405 (H) 29 - 200 U/L CK-MB 65.6 (H) 0.0 - 6.6 ng/mL MB Relative Index 2.7 % Specimen Performing Laboratory Blood - Line, Arterial [facility] [address] [place] [address] Narrative CK-MB Reference Range: <6.7Normal 6.7-10.0Borderline >10.0 Abnormal ECG 12 lead (07/19/2017 9:00 AM)Only the most recent of2 resultswithin the time period is included. Specimen Performing Laboratory GE MUSE Narrative Ventricular Rate 104 BPM Atrial Rate 104 BPM QRS Duration 98 ms Q-T Interval 338 ms QTC Calculation(Bazett) 444 ms [place] -8 degrees [place] -22 degrees [place] 82 degrees Sinus tachycardia inferoposterior infarct diffuse [...] 338 ms QTC Calculation(Bazett) 444 ms [place] -8 degrees [place] -22 degrees [place] 82 degrees Sinus tachycardia inferoposterior infarct diffuse [...] Specimen Performing Laboratory Blood - Line, Arterial [facility] [address] [place] [address] CT chest without IV contrast (07/19/2017 7:24 AM) Specimen Performing Laboratory [employer] RIS Narrative FINAL REPORT TECHNIQUE: CT scan [...] MD Report Verified Date/Time:07/19/2017 07:50:43 Reading Location: [facility] Diagnostic Imaging Reading Room - [place] [address] Procedure Note Interface, External Ris In - [...] Report Verified Date/Time: 07/19/2017 07:50:43 Reading Location: [facility] Diagnostic Imaging Reading Room - [place] [address] Creatine Kinase (CK) (07/19/2017 2:40 AM) Component Value Ref Range Total CK 2888 (H) 29 - 200 U/L Specimen Performing Laboratory Blood [facility] [address] [address] Sputum Culture + Gram Stain (07/18/2017 3:38 PM) Component Value Ref Range Result <1+ Normal respiratory pascual present Gram Stain Result 1+ WBCs Gram Stain Result 0-5 epithelial cells Gram Stain Result No organisms seen Specimen Performing Laboratory Sputum - Endotracheal [facility] [address] [place] [address], [place] [address] US renal complete (07/18/2017 1:45 PM) Specimen [...] MD Report Verified Date/Time:07/18/2017 14:36:40 Reading Location: [address] Ultrasound Reading Room Procedure Note Interface, [...] Report Verified Date/Time: 07/18/2017 14:36:40 Reading Location: [address] Ultrasound Reading Room Sodium, random urine (07/18/2017 1:08 PM) Component Value Ref Range Sodium Urine 22 meq/L Specimen Performing Laboratory Urine [address] [address] Narrative Reference Range: No Normals Protein, random urine (07/18/2017 1:08 PM) Component Value Ref Range Protein, Urine 75 (H) 0 - 14 mg/dL Specimen Performing Laboratory Urine [address] [address] Creatinine, random urine (07/18/2017 1:08 PM) Component Value Ref Range Creatinine, Ur 85.4 mg/dL Specimen Performing Laboratory Urine [address] [address] Narrative Reference Range: No Normals Urinalysis w/Microscopic (07/18/2017 1:08 PM) Component Value Ref Range Color, UA Yellow Clarity, UA Clear Specific [place], UA 1.050 (H) 1.001 - 1.035 pH, [...] /HPF Specimen Source Specimen Performing Laboratory Urine [address] [address] TSH/Free T4 If Indicated (07/18/2017 12:39 PM) Component Value Ref Range TSH 0.27 (L) 0.35 - 4.94 uIU/mL Specimen Performing Laboratory Blood [address] [address] T4, free (07/18/2017 12:39 PM) Component Value Ref Range Free T4 1.13 0.70 - 1.48 ng/dL Specimen Performing Laboratory Blood [address] [address] Lipase (07/18/2017 12:39 PM) Component Value Ref Range Lipase 106 (H) 8 - 78 U/L Specimen Performing Laboratory Blood [address] [address] Narrative If last glucose was less than 500, may do bedside glucose instead of serum glucose. Hemoglobin A1c (07/18/2017 12:39 PM) Component Value Ref Range Hemoglobin A1C 9.8 (H) 4.3 - 6.1 % Specimen Performing Laboratory Blood [address] [address] after 12/07/2016
--- OUTSIDE RECORDS SUMMARY | 2017-12-08 12:51 | XMS REPORT ---
:1945 Author Organization [facility] Address [address] [place] [address] Dr. Rodriges [address] [place] [id number] Care Team Providers Name Role Phone BRITTNEY [...] Range Comments B-TYPE NATRIURETIC PEPTIDE (BEAKER) (test sohm=711) 867 pg/mL 0-100 BASIC METABOLIC [id number] 15:05:00 Test Item Value Reference Range Comments SODIUM (BEAKER) (test 140 meq/L 136-145 mxwe=827) POTASSIUM (BEAKER) (test 4.6 meq/L 3.5-5.1 ykyn=493) CHLORIDE (BEAKER) (test 98 meq/L 98-107 bhes=992) CO2 (BEAKER) (test 32 meq/L 22-29 ageo=846) BLOOD UREA NITROGEN 30 mg/dL 7-21 (BEAKER) (test wtys=675) CREATININE (BEAKER) (test 2.58 mg/dL 0.57-1.25 eonq=940) GLUCOSE RANDOM (BEAKER) 105 mg/dL 70-105 (test qait=724) CALCIUM (BEAKER) (test 10.3 mg/dL 8.4-10.2 mjmh=217) EGFR (BEAKER) (test 22 mL/min/1.73 sq m ESTIMATED GFR IS NOT wgir=9774) ACCURATE CREATININE CLEARANCE IN PREDICTING GLOMERULAR FILTRATION RATE. ESTIMATED GFR IS NOT APPLICABLE FOR DIALYSIS PATIENTS. [id number] 15:02:00 Test Item Value Reference Range Comments MAGNESIUM (BEAKER) (test bond=732) 2.0 mg/dL 1.6-2.6 POCT-GLUCOSE [id number] 12:40:00 Test Item Value Reference Range Comments POC-GLUCOSE METER (BEAKER) 225 mg/dL 70-110 TESTED AT [address] (test ijsn=7395) [place] [id number] POCT-GLUCOSE [id number] 08:32:00 Test Item Value Reference Range Comments POC-GLUCOSE METER (BEAKER) 148 mg/dL 70-110 TESTED AT [address] (test uopg=4673) [place] [address] BASIC METABOLIC [id number] 05:56:00 Test Item Value Reference Range Comments SODIUM (BEAKER) (test 138 meq/L 136-145 xjhq=165) POTASSIUM (BEAKER) (test 4.0 meq/L 3.5-5.1 uadd=078) CHLORIDE (BEAKER) (test 98 meq/L 98-107 xrrm=114) CO2 (BEAKER) (test 29 meq/L 22-29 vdty=710) BLOOD UREA NITROGEN 14 mg/dL 7-21 (BEAKER) (test uaha=562) CREATININE (BEAKER) (test 1.85 mg/dL 0.57-1.25 xodl=148) GLUCOSE RANDOM (BEAKER) 116 mg/dL 70-105 (test fhdc=015) CALCIUM (BEAKER) (test 9.9 mg/dL 8.4-10.2 zklv=011) EGFR (BEAKER) (test 33 mL/min/1.73 sq m ESTIMATED GFR IS NOT mcud=6572) ACCURATE CREATININE CLEARANCE IN PREDICTING GLOMERULAR FILTRATION RATE. ESTIMATED GFR IS NOT APPLICABLE FOR DIALYSIS PATIENTS. POCT-GLUCOSE [id number] 21:38:00 Test Item Value Reference Range Comments POC-GLUCOSE METER (BEAKER) 162 mg/dL 70-110 TESTED AT [address] (test uwkw=8737) [place] [id number] POCT-GLUCOSE [id number] 17:02:00 Test Item Value Reference Range Comments POC-GLUCOSE METER (BEAKER) 160 mg/dL 70-110 TESTED AT [address] (test cdlf=0447) [place] [address] POCT-GLUCOSE [id number] 12:33:00 Test Item Value Reference Range Comments POC-GLUCOSE METER (BEAKER) 163 mg/dL 70-110 TESTED AT [address] (test evys=4757) [place] [address] POCT-GLUCOSE [id number] 10:33:00 Test Item Value Reference Range Comments POC-GLUCOSE METER (BEAKER) 175 mg/dL 70-110 TESTED AT [address] (test gqkj=7104) [place] [address] [id number] 04:51:00 Test Item Value Reference Range Comments MAGNESIUM (BEAKER) (test 2.0 mg/dL 1.6-2.6 Specimen slightly hemolyzed lckr=310) BASIC METABOLIC [id number] 04:51:00 Test Item Value Reference Range Comments SODIUM (BEAKER) (test 139 meq/L 136-145 rdso=867) POTASSIUM (BEAKER) (test 3.8 meq/L 3.5-5.1 Specimen slightly okme=241) hemolyzed CHLORIDE (BEAKER) (test 99 meq/L 98-107 kexf=783) CO2 (BEAKER) (test 27 meq/L 22-29 wurt=214) BLOOD UREA NITROGEN 14 mg/dL 7-21 (BEAKER) (test bnow=396) CREATININE (BEAKER) (test 1.61 mg/dL 0.57-1.25 Specimen slightly yqjn=226) hemolyzed GLUCOSE RANDOM (BEAKER) 139 mg/dL 70-105 (test jqcx=224) CALCIUM (BEAKER) (test 10.0 mg/dL 8.4-10.2 feuo=256) EGFR (BEAKER) (test 38 mL/min/1.73 sq m ESTIMATED GFR IS NOT slxu=4787) ACCURATE CREATININE CLEARANCE IN PREDICTING GLOMERULAR FILTRATION RATE. ESTIMATED GFR IS NOT APPLICABLE FOR DIALYSIS PATIENTS. POCT-GLUCOSE [id number] 21:32:00 Test Item Value Reference Range Comments POC-GLUCOSE METER (BEAKER) 176 mg/dL 70-110 TESTED AT [address] (test mnde=7970) [place] [address] POCT-GLUCOSE [id number] 17:22:00 Test Item Value Reference Range Comments POC-GLUCOSE METER (BEAKER) 232 mg/dL 70-110 TESTED AT [address] (test xpdt=5555) [place] [address] POCT-GLUCOSE [id number] 12:47:00 Test Item Value Reference Range Comments POC-GLUCOSE METER (BEAKER) 162 mg/dL 70-110 TESTED AT [address] (test svnc=6616) [facility] [address] POCT-GLUCOSE [id number] 08:15:00 Test Item Value Reference Range Comments POC-GLUCOSE METER (BEAKER) 149 mg/dL 70-110 TESTED AT [address] (test hbaj=6276) [place] [address] [id number] 07:05:00 Test Item Value Reference Range Comments MAGNESIUM (BEAKER) (test zusz=000) 1.9 mg/dL 1.6-2.6 BASIC METABOLIC [id number] 07:05:00 Test Item Value Reference Range Comments SODIUM (BEAKER) (test 136 meq/L 136-145 enry=054) POTASSIUM (BEAKER) (test 3.8 meq/L 3.5-5.1 tnls=738) CHLORIDE (BEAKER) (test 98 meq/L 98-107 ekia=677) CO2 (BEAKER) (test 30 meq/L 22-29 llsf=607) BLOOD UREA NITROGEN 14 mg/dL 7-21 (BEAKER) (test dzph=930) CREATININE (BEAKER) (test 1.56 mg/dL 0.57-1.25 pyln=702) GLUCOSE RANDOM (BEAKER) 129 mg/dL 70-105 (test iimc=425) CALCIUM (BEAKER) (test 9.8 mg/dL 8.4-10.2 fwts=581) EGFR (BEAKER) (test 40 mL/min/1.73 sq m ESTIMATED GFR IS NOT ytmc=4671) ACCURATE CREATININE CLEARANCE IN PREDICTING GLOMERULAR FILTRATION RATE. ESTIMATED GFR IS NOT APPLICABLE FOR DIALYSIS PATIENTS. POCT-GLUCOSE [id number] 20:56:00 Test Item Value Reference Range Comments POC-GLUCOSE METER (BEAKER) 112 mg/dL 70-110 TESTED AT [address] (test idnn=1652) [facility] [address] POCT-GLUCOSE [id number] 17:48:00 Test Item Value Reference Range Comments POC-GLUCOSE METER (BEAKER) 213 mg/dL 70-110 TESTED AT [address] (test odvg=4728) [place] [address] POCT-GLUCOSE [id number] 11:40:00 Test Item Value Reference Range Comments POC-GLUCOSE METER (BEAKER) 208 mg/dL 70-110 TESTED AT [address] (test vrbu=2049) [place] [address] POCT-GLUCOSE [id number] 07:43:00 Test Item Value Reference Range Comments POC-GLUCOSE METER (BEAKER) 144 mg/dL 70-110 TESTED AT [address] (test fffa=0083) [place] [address] [id number] 04:52:00 Test Item Value Reference Range Comments MAGNESIUM (BEAKER) (test 2.0 mg/dL 1.6-2.6 Specimen slightly hemolyzed hjnj=171) BASIC METABOLIC [id number] 04:52:00 Test Item Value Reference Range Comments SODIUM (BEAKER) (test 133 meq/L 136-145 yooh=047) POTASSIUM (BEAKER) (test 4.7 meq/L 3.5-5.1 Specimen slightly aozs=992) hemolyzed CHLORIDE (BEAKER) (test 97 meq/L 98-107 johy=552) CO2 (BEAKER) (test 25 meq/L 22-29 jnzi=405) BLOOD UREA NITROGEN 17 mg/dL 7-21 (BEAKER) (test dqlz=103) CREATININE (BEAKER) (test 1.63 mg/dL 0.57-1.25 Specimen slightly bfbv=179) hemolyzed GLUCOSE RANDOM (BEAKER) 141 mg/dL 70-105 (test ocxg=790) CALCIUM (BEAKER) (test 9.8 mg/dL 8.4-10.2 ujuh=312) EGFR (BEAKER) (test 38 mL/min/1.73 sq m ESTIMATED GFR IS NOT kpoj=5254) ACCURATE CREATININE CLEARANCE IN PREDICTING GLOMERULAR FILTRATION RATE. ESTIMATED GFR IS NOT APPLICABLE FOR DIALYSIS PATIENTS. POCT-GLUCOSE [id number] 21:29:00 Test Item Value Reference Range Comments POC-GLUCOSE METER (BEAKER) 198 mg/dL 70-110 TESTED AT [address] (test tguy=0587) [place] [address] POCT-GLUCOSE [id number] 17:54:00 Test Item Value Reference Range Comments POC-GLUCOSE METER (BEAKER) 176 mg/dL 70-110 TESTED AT [address] (test xukb=3713) [facility] [address] POCT-GLUCOSE [id number] 07:05:00 Test Item Value Reference Range Comments POC-GLUCOSE METER (BEAKER) 137 mg/dL 70-110 TESTED AT [facility] (test ijxr=5628) [facility] [address] [id number] 06:53:00 Test Item Value Reference Range Comments MAGNESIUM (BEAKER) (test jccb=322) 2.0 mg/dL 1.6-2.6 BASIC METABOLIC [id number] 05:37:00 Test Item Value Reference Range Comments SODIUM (BEAKER) (test 136 meq/L 136-145 nszz=897) POTASSIUM (BEAKER) (test 3.7 meq/L 3.5-5.1 pijr=749) CHLORIDE (BEAKER) (test 97 meq/L 98-107 ihyl=627) CO2 (BEAKER) (test 30 meq/L 22-29 rvib=425) BLOOD UREA NITROGEN 17 mg/dL 7-21 (BEAKER) (test vjsu=343) CREATININE (BEAKER) (test 1.60 mg/dL 0.57-1.25 posg=716) GLUCOSE RANDOM (BEAKER) 116 mg/dL 70-105 (test trij=995) CALCIUM (BEAKER) (test 9.4 mg/dL 8.4-10.2 epoj=506) EGFR (BEAKER) (test 39 mL/min/1.73 sq m ESTIMATED GFR IS NOT ordh=4958) ACCURATE CREATININE CLEARANCE IN PREDICTING GLOMERULAR FILTRATION RATE. ESTIMATED GFR IS NOT APPLICABLE FOR DIALYSIS PATIENTS. CBC W/PLT COUNT & AUTO [id number] 05:02:00 Test Item Value Reference Range Comments WHITE BLOOD CELL COUNT (BEAKER) (test arjv=286) 8.7 K/ L 3.5-10.5 RED BLOOD CELL COUNT (BEAKER) (test cfwu=730) 2.43 M/ L 3.93-5.22 HEMOGLOBIN (BEAKER) (test eaxf=963) 7.5 GM/DL 11.2-15.7 HEMATOCRIT (BEAKER) (test omvo=726) 24.1 % 34.1-44.9 MEAN CORPUSCULAR VOLUME (BEAKER) (test qsbk=235) 99.2 fL 79.4-94.8 MEAN CORPUSCULAR HEMOGLOBIN (BEAKER) (test 30.9 pg 25.6-32.2 kwxq=335) MEAN CORPUSCULAR HEMOGLOBIN CONC (BEAKER) (test 31.1 GM/DL 32.2-35.5 yfdp=245) RED CELL DISTRIBUTION WIDTH (BEAKER) (test 15.8 % 11.7-14.4 vjdi=562) PLATELET COUNT (BEAKER) (test ssan=646) 586 K/CU MM 150-450 MEAN PLATELET VOLUME (BEAKER) (test ldrm=793) 9.5 fL 9.4-12.3 NUCLEATED RED BLOOD CELLS (BEAKER) (test 0 /100 WBC 0-0 aijj=127) NEUTROPHILS RELATIVE PERCENT (BEAKER) (test 74 % jfkf=191) LYMPHOCYTES RELATIVE PERCENT (BEAKER) (test 15 % opyg=239) MONOCYTES RELATIVE PERCENT (BEAKER) (test 8 % qxuj=921) EOSINOPHILS RELATIVE PERCENT (BEAKER) (test 2 % tvkt=350) BASOPHILS RELATIVE PERCENT (BEAKER) (test 1 % lrpm=312) NEUTROPHILS ABSOLUTE COUNT (BEAKER) (test 6.41 K/ L 1.56-6.13 iibb=189) LYMPHOCYTES ABSOLUTE COUNT (BEAKER) (test 1.32 K/ L 1.18-3.74 vmtr=325) MONOCYTES ABSOLUTE COUNT (BEAKER) (test 0.65 K/ L 0.24-0.36 fdvp=987) EOSINOPHILS ABSOLUTE COUNT (BEAKER) (test 0.20 K/ L 0.04-0.36 nqfy=645) BASOPHILS ABSOLUTE COUNT (BEAKER) (test 0.08 K/ L 0.01-0.08 getq=945) IMMATURE GRANULOCYTES-RELATIVE PERCENT (BEAKER) 0 % 0-1 (test eclg=1710) POCT-GLUCOSE [id number] 21:28:00 Test Item Value Reference Range Comments POC-GLUCOSE METER (BEAKER) 216 mg/dL 70-110 TESTED AT [address] (test lehi=4906) [facility] [address] POCT-GLUCOSE [id number] 18:25:00 Test Item Value Reference Range Comments POC-GLUCOSE METER (BEAKER) 182 mg/dL 70-110 TESTED AT [address] (test lxmn=9425) [facility] [address] POCT-GLUCOSE [id number] 09:37:00 Test Item Value Reference Range Comments POC-GLUCOSE METER (BEAKER) 155 mg/dL 70-110 TESTED AT [facility] [address] [facility] (test ngyl=9316) [facility] [address] CALCIUM, [id number] 07:37:00 Test Item Value Reference Range Comments CALCIUM IONIZED (BEAKER) (test cedm=914) 1.11 mmol/L 1.12-1.27 PH, BLOOD (BEAKER) (test jmoh=6299) 7.39 [id number] 07:10:00 Test Item Value Reference Range Comments FERRITIN (BEAKER) (test hirb=410) 445 ng/mL 5-275 IRON, TIBC, % SAT. (WITHOUT FERRITIN)2017-08-04 07:04:00 Test Item Value Reference Range Comments IRON (BEAKER) (test uwlm=874) 55 ug/dL 40-160 TOTAL IRON BINDING CAPACITY (BEAKER) (test 198 ug/dL 250-450 beyu=997) IRON % SATURATION (2) (BEAKER) (test xykw=5677) 28 % 20-55 [id number] 06:57:00 Test Item Value Reference Range Comments PHOSPHORUS (BEAKER) (test epxy=494) 4.3 mg/dL 2.3-4.7 [id number] 06:57:00 Test Item Value Reference Range Comments MAGNESIUM (BEAKER) (test khgo=432) 2.1 mg/dL 1.6-2.6 BASIC METABOLIC [id number] 06:57:00 Test Item Value Reference Range Comments SODIUM (BEAKER) (test 138 meq/L 136-145 itzb=000) POTASSIUM (BEAKER) (test 3.8 meq/L 3.5-5.1 ardg=563) CHLORIDE (BEAKER) (test 99 meq/L 98-107 pqmu=136) CO2 (BEAKER) (test 29 meq/L 22-29 bkyn=130) BLOOD UREA NITROGEN 18 mg/dL 7-21 (BEAKER) (test ceqz=707) CREATININE (BEAKER) (test 1.75 mg/dL 0.57-1.25 gtku=805) GLUCOSE RANDOM (BEAKER) 138 mg/dL 70-105 (test trwj=217) CALCIUM (BEAKER) (test 9.7 mg/dL 8.4-10.2 nrqk=828) EGFR (BEAKER) (test 35 mL/min/1.73 sq m ESTIMATED GFR IS NOT beky=8978) ACCURATE CREATININE CLEARANCE IN PREDICTING GLOMERULAR FILTRATION RATE. ESTIMATED GFR IS NOT APPLICABLE FOR DIALYSIS PATIENTS. B-TYPE NATRIURETIC FACTOR (BNP)2017-08-04 06:54:00 Test Item Value Reference Range Comments B-TYPE NATRIURETIC PEPTIDE (BEAKER) (test 778 pg/mL 0-100 ztah=981) RETICULOCYTE [id number] 06:39:00 Test Item Value Reference Range Comments RETICULOCYTE COUNT PCT (BEAKER) (test aovz=339) 8.3 % 0.5-1.7 CBC W/PLT COUNT & AUTO [id number] 06:39:00 Test Item Value Reference Range Comments WHITE BLOOD CELL COUNT (BEAKER) (test eyjw=793) 9.0 K/ L 3.5-10.5 RED BLOOD CELL COUNT (BEAKER) (test basy=345) 2.55 M/ L 3.93-5.22 HEMOGLOBIN (BEAKER) (test jdfv=364) 7.8 GM/DL 11.2-15.7 HEMATOCRIT (BEAKER) (test cfke=479) 25.4 % 34.1-44.9 MEAN CORPUSCULAR VOLUME (BEAKER) (test vodd=170) 99.6 fL 79.4-94.8 MEAN CORPUSCULAR HEMOGLOBIN (BEAKER) (test 30.6 pg 25.6-32.2 fhbk=146) MEAN CORPUSCULAR HEMOGLOBIN CONC (BEAKER) (test 30.7 GM/DL 32.2-35.5 mpcv=652) RED CELL DISTRIBUTION WIDTH (BEAKER) (test 15.9 % 11.7-14.4 rriu=216) PLATELET COUNT (BEAKER) (test bqcw=537) 591 K/CU MM 150-450 MEAN PLATELET VOLUME (BEAKER) (test sukq=079) 9.5 fL 9.4-12.3 NUCLEATED RED BLOOD CELLS (BEAKER) (test 0 /100 WBC 0-0 lsbp=004) NEUTROPHILS RELATIVE PERCENT (BEAKER) (test 77 % vnom=885) LYMPHOCYTES RELATIVE PERCENT (BEAKER) (test 13 % yuma=290) MONOCYTES RELATIVE PERCENT (BEAKER) (test 7 % gpee=738) EOSINOPHILS RELATIVE PERCENT (BEAKER) (test 2 % tspi=413) BASOPHILS RELATIVE PERCENT (BEAKER) (test 1 % tgwr=078) NEUTROPHILS ABSOLUTE COUNT (BEAKER) (test 6.97 K/ L 1.56-6.13 dbqn=403) LYMPHOCYTES ABSOLUTE COUNT (BEAKER) (test 1.13 K/ L 1.18-3.74 ddsc=856) MONOCYTES ABSOLUTE COUNT (BEAKER) (test 0.65 K/ L 0.24-0.36 guva=864) EOSINOPHILS ABSOLUTE COUNT (BEAKER) (test 0.18 K/ L 0.04-0.36 nawl=754) BASOPHILS ABSOLUTE COUNT (BEAKER) (test 0.07 K/ L 0.01-0.08 tlyj=959) IMMATURE GRANULOCYTES-RELATIVE PERCENT (BEAKER) 0 % 0-1 (test ughj=6148) POCT-GLUCOSE [id number] 20:56:00 Test Item Value Reference Range Comments POC-GLUCOSE METER (BEAKER) 167 mg/dL 70-110 TESTED AT [address] (test xpzu=0242) [place] [address] POCT-GLUCOSE [id number] 16:36:00 Test Item Value Reference Range Comments POC-GLUCOSE METER (BEAKER) 200 mg/dL 70-110 TESTED AT [address] (test eskh=0357) [place] [address] POCT-GLUCOSE [id number] 12:59:00 Test Item Value Reference Range Comments POC-GLUCOSE METER (BEAKER) 202 mg/dL 70-110 TESTED AT [address] (test rdcw=2900) [place] [address] POCT-GLUCOSE [id number] 07:37:00 Test Item Value Reference Range Comments POC-GLUCOSE METER (BEAKER) 154 mg/dL 70-110 TESTED AT [address] (test txxo=5301) [place] [address] CBC W/PLT COUNT & AUTO [id number] 06:49:00 Test Item Value Reference Range Comments WHITE BLOOD CELL COUNT (BEAKER) (test fiya=943) 9.8 K/ L 3.5-10.5 RED BLOOD CELL COUNT (BEAKER) (test zxyv=025) 2.62 M/ L 3.93-5.22 HEMOGLOBIN (BEAKER) (test bnff=128) 8.1 GM/DL 11.2-15.7 HEMATOCRIT (BEAKER) (test yqen=145) 25.9 % 34.1-44.9 MEAN CORPUSCULAR VOLUME (BEAKER) (test ctll=359) 98.9 fL 79.4-94.8 MEAN CORPUSCULAR HEMOGLOBIN (BEAKER) (test 30.9 pg 25.6-32.2 badx=545) MEAN CORPUSCULAR HEMOGLOBIN CONC (BEAKER) (test 31.3 GM/DL 32.2-35.5 gftj=789) RED CELL DISTRIBUTION WIDTH (BEAKER) (test 15.8 % 11.7-14.4 fbby=539) PLATELET COUNT (BEAKER) (test qgyf=372) 667 K/CU MM 150-450 MEAN PLATELET VOLUME (BEAKER) (test bpsq=188) 9.4 fL 9.4-12.3 NUCLEATED RED BLOOD CELLS (BEAKER) (test 0 /100 WBC 0-0 qpup=230) NEUTROPHILS RELATIVE PERCENT (BEAKER) (test 77 % hxlh=373) LYMPHOCYTES RELATIVE PERCENT (BEAKER) (test 13 % xyjx=715) MONOCYTES RELATIVE PERCENT (BEAKER) (test 7 % krpl=119) EOSINOPHILS RELATIVE PERCENT (BEAKER) (test 2 % llvs=613) BASOPHILS RELATIVE PERCENT (BEAKER) (test 1 % wvlk=870) NEUTROPHILS ABSOLUTE COUNT (BEAKER) (test 7.57 K/ L 1.56-6.13 bmwg=380) LYMPHOCYTES ABSOLUTE COUNT (BEAKER) (test 1.23 K/ L 1.18-3.74 oasi=659) MONOCYTES ABSOLUTE COUNT (BEAKER) (test 0.69 K/ L 0.24-0.36 qojc=463) EOSINOPHILS ABSOLUTE COUNT (BEAKER) (test 0.16 K/ L 0.04-0.36 fvmz=889) BASOPHILS ABSOLUTE COUNT (BEAKER) (test 0.08 K/ L 0.01-0.08 npdj=942) IMMATURE GRANULOCYTES-RELATIVE PERCENT (BEAKER) 1 % 0-1 (test aqux=2791) CALCIUM, [id number] 06:38:00 Test Item Value Reference Range Comments CALCIUM IONIZED (BEAKER) (test ymbx=727) 1.07 mmol/L 1.12-1.27 PH, BLOOD (BEAKER) (test ivhq=0120) 7.42 [id number] 06:08:00 Test Item Value Reference Range Comments PHOSPHORUS (BEAKER) (test gbqz=760) 4.3 mg/dL 2.3-4.7 [id number] 06:08:00 Test Item Value Reference Range Comments MAGNESIUM (BEAKER) (test plef=255) 2.4 mg/dL 1.6-2.6 BASIC METABOLIC [id number] 06:08:00 Test Item Value Reference Range Comments SODIUM (BEAKER) (test 138 meq/L 136-145 qapv=625) POTASSIUM (BEAKER) (test 4.0 meq/L 3.5-5.1 dvlt=076) CHLORIDE (BEAKER) (test 99 meq/L 98-107 biln=616) CO2 (BEAKER) (test 29 meq/L 22-29 rtnn=907) BLOOD UREA NITROGEN 15 mg/dL 7-21 (BEAKER) (test dayq=873) CREATININE (BEAKER) (test 1.64 mg/dL 0.57-1.25 iimi=428) GLUCOSE RANDOM (BEAKER) 135 mg/dL 70-105 (test corl=852) CALCIUM (BEAKER) (test 9.5 mg/dL 8.4-10.2 casw=531) EGFR (BEAKER) (test 38 mL/min/1.73 sq m ESTIMATED GFR IS NOT sfks=1625) ACCURATE CREATININE CLEARANCE IN PREDICTING GLOMERULAR FILTRATION RATE. ESTIMATED GFR IS NOT APPLICABLE FOR DIALYSIS PATIENTS. POCT-GLUCOSE [id number] 21:13:00 Test Item Value Reference Range Comments POC-GLUCOSE METER (BEAKER) 145 mg/dL 70-110 TESTED AT [address] (test tcfq=7949) [place] [id number] POCT-GLUCOSE [id number] 17:08:00 Test Item Value Reference Range Comments POC-GLUCOSE METER (BEAKER) 134 mg/dL 70-110 TESTED AT [address] (test dthz=8982) [place] [address] POCT-GLUCOSE [id number] 11:44:00 Test Item Value Reference Range Comments POC-GLUCOSE METER (BEAKER) 159 mg/dL 70-110 TESTED AT [address] (test hcuo=1269) [place] [address] POCT-GLUCOSE [id number] 08:07:00 Test Item Value Reference Range Comments POC-GLUCOSE METER (BEAKER) 152 mg/dL 70-110 TESTED AT [facility] (test omef=9923) [facility] [address] CALCIUM, [id number] 05:26:00 Test Item Value Reference Range Comments CALCIUM IONIZED (BEAKER) (test dzuw=886) 1.10 mmol/L 1.12-1.27 PH, BLOOD (BEAKER) (test exfv=4957) 7.42 [id number] 05:05:00 Test Item Value Reference Range Comments PHOSPHORUS (BEAKER) (test ksmm=454) 4.6 mg/dL 2.3-4.7 [id number] 05:05:00 Test Item Value Reference Range Comments MAGNESIUM (BEAKER) (test gpym=474) 1.6 mg/dL 1.6-2.6 COMPREHENSIVE METABOLIC [id number] 05:05:00 Test Item Value Reference Range Comments TOTAL PROTEIN (BEAKER) 6.9 gm/dL 6.0-8.3 (test fqvd=906) ALBUMIN (BEAKER) (test 3.2 g/dL 3.5-5.0 fwvr=2999) ALKALINE PHOSPHATASE 55 U/L 40-150 (BEAKER) (test fcen=675) BILIRUBIN TOTAL (BEAKER) 0.6 mg/dL 0.2-1.2 (test byqs=259) SODIUM (BEAKER) (test 139 meq/L 136-145 oqyr=796) POTASSIUM (BEAKER) (test 3.9 meq/L 3.5-5.1 czqa=678) CHLORIDE (BEAKER) (test 100 meq/L 98-107 vfig=030) CO2 (BEAKER) (test 27 meq/L 22-29 rgjb=868) BLOOD UREA NITROGEN 15 mg/dL 7-21 (BEAKER) (test qgep=141) CREATININE (BEAKER) (test 1.55 mg/dL 0.57-1.25 clpf=805) GLUCOSE RANDOM (BEAKER) 125 mg/dL 70-105 (test xnum=809) CALCIUM (BEAKER) (test 9.2 mg/dL 8.4-10.2 vttk=312) AST (SGOT) (BEAKER) (test 16 U/L 5-34 ahdx=582) ALT (SGPT) (BEAKER) (test 11 U/L 6-55 buxd=044) EGFR (BEAKER) (test 40 mL/min/1.73 sq m ESTIMATED GFR IS NOT pelt=3850) ACCURATE CREATININE CLEARANCE IN PREDICTING GLOMERULAR FILTRATION RATE. ESTIMATED GFR IS NOT APPLICABLE FOR DIALYSIS PATIENTS. CBC W/PLT COUNT & AUTO [id number] 04:57:00 Test Item Value Reference Range Comments WHITE BLOOD CELL COUNT (BEAKER) (test eroq=588) 10.8 K/ L 3.5-10.5 RED BLOOD CELL COUNT (BEAKER) (test wyis=649) 2.57 M/ L 3.93-5.22 HEMOGLOBIN (BEAKER) (test suky=659) 7.9 GM/DL 11.2-15.7 HEMATOCRIT (BEAKER) (test ogch=654) 25.2 % 34.1-44.9 MEAN CORPUSCULAR VOLUME (BEAKER) (test lnuv=602) 98.1 fL 79.4-94.8 MEAN CORPUSCULAR HEMOGLOBIN (BEAKER) (test 30.7 pg 25.6-32.2 hvyr=910) MEAN CORPUSCULAR HEMOGLOBIN CONC (BEAKER) (test 31.3 GM/DL 32.2-35.5 nrby=181) RED CELL DISTRIBUTION WIDTH (BEAKER) (test 15.9 % 11.7-14.4 hrog=402) PLATELET COUNT (BEAKER) (test jywy=136) 623 K/CU MM 150-450 MEAN PLATELET VOLUME (BEAKER) (test uhci=182) 9.4 fL 9.4-12.3 NUCLEATED RED BLOOD CELLS (BEAKER) (test 0 /100 WBC 0-0 nbln=175) NEUTROPHILS RELATIVE PERCENT (BEAKER) (test 79 % tsow=727) LYMPHOCYTES RELATIVE PERCENT (BEAKER) (test 12 % uuxw=642) MONOCYTES RELATIVE PERCENT (BEAKER) (test 7 % nhrq=299) EOSINOPHILS RELATIVE PERCENT (BEAKER) (test 2 % pzpx=965) BASOPHILS RELATIVE PERCENT (BEAKER) (test 1 % nxcl=988) NEUTROPHILS ABSOLUTE COUNT (BEAKER) (test 8.49 K/ L 1.56-6.13 crah=697) LYMPHOCYTES ABSOLUTE COUNT (BEAKER) (test 1.28 K/ L 1.18-3.74 ytcy=963) MONOCYTES ABSOLUTE COUNT (BEAKER) (test 0.74 K/ L 0.24-0.36 qtqz=365) EOSINOPHILS ABSOLUTE COUNT (BEAKER) (test 0.18 K/ L 0.04-0.36 riuk=821) BASOPHILS ABSOLUTE COUNT (BEAKER) (test 0.05 K/ L 0.01-0.08 mvoh=769) IMMATURE GRANULOCYTES-RELATIVE PERCENT (BEAKER) 1 % 0-1 (test hdmk=4988) POCT-GLUCOSE [id number] 01:29:00 Test Item Value Reference Range Comments POC-GLUCOSE METER (BEAKER) 182 mg/dL 70-110 TESTED AT [address] (test gyka=6336) [place] [id number] POCT-GLUCOSE [id number] 22:32:00 Test Item Value Reference Range Comments POC-GLUCOSE METER (BEAKER) 204 mg/dL 70-110 TESTED AT [address] (test hzoo=1328) [place] [id number] POCT-GLUCOSE [id number] 18:53:00 Test Item Value Reference Range Comments POC-GLUCOSE METER (BEAKER) 154 mg/dL 70-110 TESTED AT [address] (test huxn=9385) [place] [id number] POCT-GLUCOSE [id number] 15:50:00 Test Item Value Reference Range Comments POC-GLUCOSE METER (BEAKER) 172 mg/dL 70-110 TESTED AT [address] (test ohtz=0338) [place] [address] B-TYPE NATRIURETIC FACTOR (BNP)2017-08-01 15:41:00 Test Item Value Reference Range Comments B-TYPE NATRIURETIC PEPTIDE (BEAKER) (test 1253 pg/mL 0-100 xfcb=604) RAD, CHEST, 1 VIEW, NON [id number] 15:00:00Reason for exam:->SOBShould this be performed at the bedside?->YesFINAL REPORT Chest one view compared to July 28, 2017 Discussion: There is cardiac prominence. Lungs are grossly clear. No effusion or pneumothorax. There is either hiatal hernia or aortic tortuosity. IMPRESSIONS: No significant change. Signed: Nisbet, Tony MDReport Verified Date/Time: 08/01/2017 15:00:05 Reading Location: [facility] B1 [id number] Consult Reading Room Electronicallysigned by: TONY HSU M.D. on 08/01/2017 03:00 PMPOCT-GLUCOSE [id number] 09:28:00 Test Item Value Reference Range Comments POC-GLUCOSE METER (BEAKER) 155 mg/dL 70-110 TESTED AT [facility] [address] [facility] (test qduq=7031) [facility] [address] BASIC METABOLIC [id number] 08:00:00 Test Item Value Reference Range Comments SODIUM (BEAKER) (test 138 meq/L 136-145 vowv=602) POTASSIUM (BEAKER) (test 3.8 meq/L 3.5-5.1 mgec=006) CHLORIDE (BEAKER) (test 100 meq/L 98-107 emzh=744) CO2 (BEAKER) (test 27 meq/L 22-29 xykj=430) BLOOD UREA NITROGEN 14 mg/dL 7-21 (BEAKER) (test vyjd=125) CREATININE (BEAKER) (test 1.47 mg/dL 0.57-1.25 puad=868) GLUCOSE RANDOM (BEAKER) 150 mg/dL 70-105 (test dvfi=710) CALCIUM (BEAKER) (test 9.0 mg/dL 8.4-10.2 xauh=813) EGFR (BEAKER) (test 43 mL/min/1.73 sq m ESTIMATED GFR IS NOT peki=1102) ACCURATE CREATININE CLEARANCE IN PREDICTING GLOMERULAR FILTRATION RATE. ESTIMATED GFR IS NOT APPLICABLE FOR DIALYSIS PATIENTS. CBC W/PLT COUNT & AUTO [id number] 07:54:00 Test Item Value Reference Range Comments WHITE BLOOD CELL COUNT (BEAKER) (test vimn=932) 12.4 K/ L 3.5-10.5 RED BLOOD CELL COUNT (BEAKER) (test eorx=607) 2.57 M/ L 3.93-5.22 HEMOGLOBIN (BEAKER) (test hfwd=107) 7.7 GM/DL 11.2-15.7 HEMATOCRIT (BEAKER) (test nrhj=237) 25.0 % 34.1-44.9 MEAN CORPUSCULAR VOLUME (BEAKER) (test oigh=539) 97.3 fL 79.4-94.8 MEAN CORPUSCULAR HEMOGLOBIN (BEAKER) (test 30.0 pg 25.6-32.2 yslx=990) MEAN CORPUSCULAR HEMOGLOBIN CONC (BEAKER) (test 30.8 GM/DL 32.2-35.5 cusg=811) RED CELL DISTRIBUTION WIDTH (BEAKER) (test 15.8 % 11.7-14.4 qgbc=162) PLATELET COUNT (BEAKER) (test tawe=782) 582 K/CU MM 150-450 MEAN PLATELET VOLUME (BEAKER) (test zoin=751) 9.5 fL 9.4-12.3 NUCLEATED RED BLOOD CELLS (BEAKER) (test 0 /100 WBC 0-0 vxju=399) NEUTROPHILS RELATIVE PERCENT (BEAKER) (test 82 % cfxt=544) LYMPHOCYTES RELATIVE PERCENT (BEAKER) (test 10 % wfww=739) MONOCYTES RELATIVE PERCENT (BEAKER) (test 6 % hxdh=279) EOSINOPHILS RELATIVE PERCENT (BEAKER) (test 1 % iftp=826) BASOPHILS RELATIVE PERCENT (BEAKER) (test 1 % jsht=302) NEUTROPHILS ABSOLUTE COUNT (BEAKER) (test 10.08 K/ L 1.56-6.13 likt=310) LYMPHOCYTES ABSOLUTE COUNT (BEAKER) (test 1.19 K/ L 1.18-3.74 oqax=028) MONOCYTES ABSOLUTE COUNT (BEAKER) (test 0.74 K/ L 0.24-0.36 tzym=624) EOSINOPHILS ABSOLUTE COUNT (BEAKER) (test 0.16 K/ L 0.04-0.36 lmtb=408) BASOPHILS ABSOLUTE COUNT (BEAKER) (test 0.10 K/ L 0.01-0.08 mqyc=822) IMMATURE GRANULOCYTES-RELATIVE PERCENT (BEAKER) 1 % 0-1 (test xsdp=1329) POCT-GLUCOSE [id number] 21:34:00 Test Item Value Reference Range Comments POC-GLUCOSE METER (BEAKER) 153 mg/dL 70-110 TESTED AT [address] (test hvnt=4234) [facility] [address] POCT-GLUCOSE [id number] 17:34:00 Test Item Value Reference Range Comments POC-GLUCOSE METER (BEAKER) 165 mg/dL 70-110 TESTED AT [address] (test dcvo=8526) [facility] [address] POCT-GLUCOSE [id number] 14:33:00 Test Item Value Reference Range Comments POC-GLUCOSE METER (BEAKER) 208 mg/dL 70-110 TESTED AT [facility] [address] [facility] (test zfgt=2320) [facility] [address] POCT-GLUCOSE [id number] 12:54:00 Test Item Value Reference Range Comments POC-GLUCOSE METER (BEAKER) 218 mg/dL 70-110 TESTED AT [address] (test nuhj=8850) [facility] [address] POCT-GLUCOSE [id number] 10:34:00 Test Item Value Reference Range Comments POC-GLUCOSE METER (BEAKER) 204 mg/dL 70-110 TESTED AT [address] (test nmoc=8358) [facility] [address] POCT-GLUCOSE [id number] 08:41:00 Test Item Value Reference Range Comments POC-GLUCOSE METER (BEAKER) 201 mg/dL 70-110 TESTED AT [address] (test xszn=6369) [place] [id number] 05:54:00 Test Item Value Reference Range Comments MAGNESIUM (BEAKER) (test phkl=140) 1.8 mg/dL 1.6-2.6 BASIC METABOLIC [id number] 05:54:00 Test Item Value Reference Range Comments SODIUM (BEAKER) (test 138 meq/L 136-145 kink=151) POTASSIUM (BEAKER) (test 3.6 meq/L 3.5-5.1 adga=653) CHLORIDE (BEAKER) (test 100 meq/L 98-107 swsx=973) CO2 (BEAKER) (test 25 meq/L 22-29 dcle=506) BLOOD UREA NITROGEN 14 mg/dL 7-21 (BEAKER) (test btxe=764) CREATININE (BEAKER) (test 1.42 mg/dL 0.57-1.25 agcz=381) GLUCOSE RANDOM (BEAKER) 145 mg/dL 70-105 (test epsp=173) CALCIUM (BEAKER) (test 9.4 mg/dL 8.4-10.2 djsf=788) EGFR (BEAKER) (test 44 mL/min/1.73 sq m ESTIMATED GFR IS NOT vafz=1884) ACCURATE CREATININE CLEARANCE IN PREDICTING GLOMERULAR FILTRATION RATE. ESTIMATED GFR IS NOT APPLICABLE FOR DIALYSIS PATIENTS. CBC (HEMOGRAM ONLY)2017-07-31 05:42:00 Test Item Value Reference Range Comments WHITE BLOOD CELL COUNT (BEAKER) (test tzhc=328) 13.3 K/ L 3.5-10.5 RED BLOOD CELL COUNT (BEAKER) (test wzrt=420) 2.65 M/ L 3.93-5.22 HEMOGLOBIN (BEAKER) (test esty=070) 7.9 GM/DL 11.2-15.7 HEMATOCRIT (BEAKER) (test bqmg=241) 25.9 % 34.1-44.9 MEAN CORPUSCULAR VOLUME (BEAKER) (test bogc=428) 97.7 fL 79.4-94.8 MEAN CORPUSCULAR HEMOGLOBIN (BEAKER) (test 29.8 pg 25.6-32.2 usth=580) MEAN CORPUSCULAR HEMOGLOBIN CONC (BEAKER) (test 30.5 GM/DL 32.2-35.5 jmgg=457) RED CELL DISTRIBUTION WIDTH (BEAKER) (test 15.3 % 11.7-14.4 mrnj=390) PLATELET COUNT (BEAKER) (test hayh=247) 580 K/CU MM 150-450 MEAN PLATELET VOLUME (BEAKER) (test daik=049) 9.7 fL 9.4-12.3 NUCLEATED RED BLOOD CELLS (BEAKER) (test 0 /100 WBC 0-0 hkyl=907) POCT-GLUCOSE [id number] 21:21:00 Test Item Value Reference Range Comments POC-GLUCOSE METER (BEAKER) 206 mg/dL 70-110 TESTED AT [address] (test aofb=3224) [facility] [address] POCT-GLUCOSE [id number] 17:50:00 Test Item Value Reference Range Comments POC-GLUCOSE METER (BEAKER) 160 mg/dL 70-110 TESTED AT [address] (test zrhf=5028) [facility] [address] POCT-GLUCOSE [id number] 12:12:00 Test Item Value Reference Range Comments POC-GLUCOSE METER (BEAKER) 214 mg/dL 70-110 TESTED AT [address] (test ogen=5731) [facility] [address] POCT-GLUCOSE [id number] 07:59:00 Test Item Value Reference Range Comments POC-GLUCOSE METER (BEAKER) 146 mg/dL 70-110 TESTED AT [facility] [address] (test tqnj=4835) [place] [address] CALCIUM, [id number] 07:23:00 Test Item Value Reference Range Comments CALCIUM IONIZED (BEAKER) (test tqtk=763) 1.11 mmol/L 1.12-1.27 PH, BLOOD (BEAKER) (test rsco=7546) 7.42 [id number] 07:07:00 Test Item Value Reference Range Comments PHOSPHORUS (BEAKER) (test vaub=922) 3.5 mg/dL 2.3-4.7 [id number] 07:07:00 Test Item Value Reference Range Comments MAGNESIUM (BEAKER) (test phrl=589) 1.8 mg/dL 1.6-2.6 COMPREHENSIVE METABOLIC [id number] 07:07:00 Test Item Value Reference Range Comments TOTAL PROTEIN (BEAKER) 6.7 gm/dL 6.0-8.3 (test ffxq=498) ALBUMIN (BEAKER) (test 3.1 g/dL 3.5-5.0 zhug=5130) ALKALINE PHOSPHATASE 53 U/L 40-150 (BEAKER) (test emfy=388) BILIRUBIN TOTAL (BEAKER) 0.6 mg/dL 0.2-1.2 (test hhja=508) SODIUM (BEAKER) (test 139 meq/L 136-145 wrbj=210) POTASSIUM (BEAKER) (test 4.0 meq/L 3.5-5.1 jync=614) CHLORIDE (BEAKER) (test 103 meq/L 98-107 olar=988) CO2 (BEAKER) (test 27 meq/L 22-29 flvm=083) BLOOD UREA NITROGEN 16 mg/dL 7-21 (BEAKER) (test xoow=021) CREATININE (BEAKER) (test 1.34 mg/dL 0.57-1.25 jtpu=624) GLUCOSE RANDOM (BEAKER) 116 mg/dL 70-105 (test plcs=380) CALCIUM (BEAKER) (test 9.2 mg/dL 8.4-10.2 sllz=613) AST (SGOT) (BEAKER) (test 15 U/L 5-34 okol=666) ALT (SGPT) (BEAKER) (test 11 U/L 6-55 mluh=480) EGFR (BEAKER) (test 47 mL/min/1.73 sq m ESTIMATED GFR IS NOT cakr=2919) ACCURATE CREATININE CLEARANCE IN PREDICTING GLOMERULAR FILTRATION RATE. ESTIMATED GFR IS NOT APPLICABLE FOR DIALYSIS PATIENTS. CBC W/PLT COUNT & AUTO [id number] 06:52:00 Test Item Value Reference Range Comments WHITE BLOOD CELL COUNT (BEAKER) (test rjwz=364) 12.8 K/ L 3.5-10.5 RED BLOOD CELL COUNT (BEAKER) (test gquq=375) 2.43 M/ L 3.93-5.22 HEMOGLOBIN (BEAKER) (test cstq=482) 7.2 GM/DL 11.2-15.7 HEMATOCRIT (BEAKER) (test qkjl=407) 23.8 % 34.1-44.9 MEAN CORPUSCULAR VOLUME (BEAKER) (test aldb=748) 97.9 fL 79.4-94.8 MEAN CORPUSCULAR HEMOGLOBIN (BEAKER) (test 29.6 pg 25.6-32.2 rmlr=584) MEAN CORPUSCULAR HEMOGLOBIN CONC (BEAKER) (test 30.3 GM/DL 32.2-35.5 aqyf=172) RED CELL DISTRIBUTION WIDTH (BEAKER) (test 15.0 % 11.7-14.4 zojh=064) PLATELET COUNT (BEAKER) (test cxue=436) 456 K/CU MM 150-450 MEAN PLATELET VOLUME (BEAKER) (test cjqr=562) 10.3 fL 9.4-12.3 NUCLEATED RED BLOOD CELLS (BEAKER) (test 0 /100 WBC 0-0 dsaa=853) NEUTROPHILS RELATIVE PERCENT (BEAKER) (test 82 % hdjn=155) LYMPHOCYTES RELATIVE PERCENT (BEAKER) (test 9 % ukcz=589) MONOCYTES RELATIVE PERCENT (BEAKER) (test 6 % yvbl=013) EOSINOPHILS RELATIVE PERCENT (BEAKER) (test 2 % lnoz=146) BASOPHILS RELATIVE PERCENT (BEAKER) (test 0 % ymis=262) NEUTROPHILS ABSOLUTE COUNT (BEAKER) (test 10.52 K/ L 1.56-6.13 cygh=919) LYMPHOCYTES ABSOLUTE COUNT (BEAKER) (test 1.19 K/ L 1.18-3.74 paud=574) MONOCYTES ABSOLUTE COUNT (BEAKER) (test 0.73 K/ L 0.24-0.36 mccf=749) EOSINOPHILS ABSOLUTE COUNT (BEAKER) (test 0.22 K/ L 0.04-0.36 oklx=936) BASOPHILS ABSOLUTE COUNT (BEAKER) (test 0.04 K/ L 0.01-0.08 ifiv=233) IMMATURE GRANULOCYTES-RELATIVE PERCENT (BEAKER) 1 % 0-1 (test kgkt=1582) POCT-GLUCOSE [id number] 21:47:00 Test Item Value Reference Range Comments POC-GLUCOSE METER (BEAKER) 106 mg/dL 70-110 TESTED AT [address] (test cgtr=8554) [place] [address] POCT-GLUCOSE [id number] 18:50:00 Test Item Value Reference Range Comments POC-GLUCOSE METER (BEAKER) 175 mg/dL 70-110 TESTED AT [address] (test ybyn=2290) [place] [address] [id number] 15:18:00 Test Item Value Reference Range Comments POTASSIUM (BEAKER) (test lnoc=026) 3.7 meq/L 3.5-5.1 [id number] 15:18:00 Test Item Value Reference Range Comments MAGNESIUM (BEAKER) (test wzzd=250) 2.2 mg/dL 1.6-2.6 POCT-GLUCOSE [id number] 11:48:00 Test Item Value Reference Range Comments POC-GLUCOSE METER (BEAKER) 131 mg/dL 70-110 TESTED AT [address] (test vsmz=8758) [place] [address] BLOOD GAS, [id number] 11:46:00 Test Item Value Reference Range Comments PH ARTERIAL (BEAKER) (test mlxt=552) 7.43 7.35-7.45 PCO2 ARTERIAL (BEAKER) (test kkou=053) 46 mmHg 35-45 PO2 ARTERIAL (BEAKER) (test kvvr=396) 83 mmHg 80-90 O2 SATURATION ARTERIAL (BEAKER) (test jtde=513) 96.5 % 96.0-97.0 HCO3 ARTERIAL (BEAKER) (test bbma=081) 30 mmol/L 21-29 BASE EXCESS ARTERIAL (BEAKER) (test udwb=207) 4.8 mmol/L -2.0-3.0 PATIENT TEMPERATURE (BEAKER) (test osle=4062) 36.9 C FIO2 (BEAKER) (test rcei=6770) 36.0 % POCT-GLUCOSE [id number] 08:29:00 Test Item Value Reference Range Comments POC-GLUCOSE METER (BEAKER) 129 mg/dL 70-110 TESTED AT [facility] [address] [facility] (test hoob=7072) [place] [address] CALCIUM, [id number] 04:18:00 Test Item Value Reference Range Comments CALCIUM IONIZED (BEAKER) (test pxvt=223) 1.11 mmol/L 1.12-1.27 PH, BLOOD (BEAKER) (test xekn=4947) 7.40 B-TYPE NATRIURETIC FACTOR (BNP)2017-07-29 04:06:00 Test Item Value Reference Range Comments B-TYPE NATRIURETIC PEPTIDE (BEAKER) (test 982 pg/mL 0-100 atuv=846) [id number] 03:59:00 Test Item Value Reference Range Comments PHOSPHORUS (BEAKER) (test appx=752) 3.6 mg/dL 2.3-4.7 [id number] 03:59:00 Test Item Value Reference Range Comments MAGNESIUM (BEAKER) (test egob=004) 1.9 mg/dL 1.6-2.6 BASIC METABOLIC [id number] 03:59:00 Test Item Value Reference Range Comments SODIUM (BEAKER) (test 141 meq/L 136-145 fuuq=955) POTASSIUM (BEAKER) (test 3.1 meq/L 3.5-5.1 ijyi=987) CHLORIDE (BEAKER) (test 103 meq/L 98-107 iwxt=772) CO2 (BEAKER) (test 26 meq/L 22-29 tuoj=442) BLOOD UREA NITROGEN 17 mg/dL 7-21 (BEAKER) (test fskr=882) CREATININE (BEAKER) (test 1.43 mg/dL 0.57-1.25 lxsh=483) GLUCOSE RANDOM (BEAKER) 110 mg/dL 70-105 (test yzwv=694) CALCIUM (BEAKER) (test 9.0 mg/dL 8.4-10.2 tqul=545) EGFR (BEAKER) (test 44 mL/min/1.73 sq m ESTIMATED GFR IS NOT psdb=6527) ACCURATE CREATININE CLEARANCE IN PREDICTING GLOMERULAR FILTRATION RATE. ESTIMATED GFR IS NOT APPLICABLE FOR DIALYSIS PATIENTS. CBC (HEMOGRAM ONLY)2017-07-29 03:51:00 Test Item Value Reference Range Comments WHITE BLOOD CELL COUNT (BEAKER) (test wzpl=967) 12.2 K/ L 3.5-10.5 RED BLOOD CELL COUNT (BEAKER) (test npxt=327) 2.48 M/ L 3.93-5.22 HEMOGLOBIN (BEAKER) (test pgfx=556) 7.4 GM/DL 11.2-15.7 HEMATOCRIT (BEAKER) (test dnmr=453) 24.2 % 34.1-44.9 MEAN CORPUSCULAR VOLUME (BEAKER) (test ejwv=330) 97.6 fL 79.4-94.8 MEAN CORPUSCULAR HEMOGLOBIN (BEAKER) (test 29.8 pg 25.6-32.2 wfmq=960) MEAN CORPUSCULAR HEMOGLOBIN CONC (BEAKER) (test 30.6 GM/DL 32.2-35.5 fjtk=669) RED CELL DISTRIBUTION WIDTH (BEAKER) (test 15.1 % 11.7-14.4 jyrb=578) PLATELET COUNT (BEAKER) (test xfnc=372) 410 K/CU MM 150-450 MEAN PLATELET VOLUME (BEAKER) (test rslb=838) 10.2 fL 9.4-12.3 NUCLEATED RED BLOOD CELLS (BEAKER) (test 0 /100 WBC 0-0 drva=594) POCT-GLUCOSE [id number] 23:55:00 Test Item Value Reference Range Comments POC-GLUCOSE METER (BEAKER) 164 mg/dL 70-110 TESTED AT [address] (test zkzj=9094) [facility] [address] HERPES VIRUS ANTIBODY, [id number] 11:02:00 Test Item Value Reference Range Comments HERPES VIRUS IGM (BEAKER) (test kwxz=0503) Negative HSV IgM 1=NEGATIVEHSV IgM 2=NEGATIVETOXOPLASMA GONDII ANTIBODY, [id number] 11 :02:00 Test Item Value Reference Range Comments TOXOPLASMA IGM ANTIBODY (BEAKER) (test yqca=521) Negative RAD, CHEST, 1 VIEW, NON [id number] 10:48:00Reason for exam:->acute respiratory insufficiencyShould this be [...] Date/Time: 07/28/2017 10:48:24 Reading Location: [facility] Radiology Reading Room [id number] 05:13:00 Test Item Value Reference Range Comments PHOSPHORUS (BEAKER) (test latr=448) 3.3 mg/dL 2.3-4.7 [id number] 05:13:00 Test Item Value Reference Range Comments MAGNESIUM (BEAKER) (test icnw=250) 1.9 mg/dL 1.6-2.6 HEPATIC FUNCTION [id number] 05:13:00 Test Item Value Reference Range Comments TOTAL PROTEIN (BEAKER) (test nsca=836) 7.5 gm/dL 6.0-8.3 ALBUMIN (BEAKER) (test ztco=5868) 3.6 g/dL 3.5-5.0 BILIRUBIN TOTAL (BEAKER) (test hdow=181) 0.9 mg/dL 0.2-1.2 BILIRUBIN DIRECT (BEAKER) (test wbme=612) 0.4 mg/dL 0.1-0.5 ALKALINE PHOSPHATASE (BEAKER) (test jaxr=887) 66 U/L 40-150 AST (SGOT) (BEAKER) (test uzxn=553) 21 U/L 5-34 ALT (SGPT) (BEAKER) (test efwv=822) 17 U/L 6-55 COMPREHENSIVE METABOLIC [id number] 05:13:00 Test Item Value Reference Range Comments TOTAL PROTEIN (BEAKER) 7.5 gm/dL 6.0-8.3 (test zsqi=787) ALBUMIN (BEAKER) (test 3.6 g/dL 3.5-5.0 zbcc=7847) ALKALINE PHOSPHATASE 66 U/L 40-150 (BEAKER) (test fveo=803) BILIRUBIN TOTAL (BEAKER) 0.9 mg/dL 0.2-1.2 (test kkem=785) SODIUM (BEAKER) (test 143 meq/L 136-145 akxf=854) POTASSIUM (BEAKER) (test 3.5 meq/L 3.5-5.1 cvem=344) CHLORIDE (BEAKER) (test 105 meq/L 98-107 uyzl=495) CO2 (BEAKER) (test 25 meq/L 22-29 tqvg=864) BLOOD UREA NITROGEN 18 mg/dL 7-21 (BEAKER) (test hray=698) CREATININE (BEAKER) (test 1.43 mg/dL 0.57-1.25 dlvs=567) GLUCOSE RANDOM (BEAKER) 130 mg/dL 70-105 (test ygsc=323) CALCIUM (BEAKER) (test 9.6 mg/dL 8.4-10.2 pzsn=942) AST (SGOT) (BEAKER) (test 21 U/L 5-34 tqwu=722) ALT (SGPT) (BEAKER) (test 17 U/L 6-55 jvwb=775) EGFR (BEAKER) (test 44 mL/min/1.73 sq m ESTIMATED GFR IS NOT lmjg=0824) ACCURATE CREATININE CLEARANCE IN PREDICTING GLOMERULAR FILTRATION RATE. ESTIMATED GFR IS NOT APPLICABLE FOR DIALYSIS PATIENTS. LACTATE DEHYDROGENASE (LDH)2017-07-28 05:13:00 Test Item Value Reference Range Comments LACTATE DEHYDROGENASE (BEAKER) (test brzo=652) 639 U/L 125-220 CBC W/PLT COUNT & AUTO [id number] 04:57:00 Test Item Value Reference Range Comments WHITE BLOOD CELL COUNT (BEAKER) (test zowb=512) 13.6 K/ L 3.5-10.5 RED BLOOD CELL COUNT (BEAKER) (test toup=064) 2.86 M/ L 3.93-5.22 HEMOGLOBIN (BEAKER) (test ouet=824) 8.5 GM/DL 11.2-15.7 HEMATOCRIT (BEAKER) (test wtgx=110) 28.9 % 34.1-44.9 MEAN CORPUSCULAR VOLUME (BEAKER) (test osav=519) 101.0 fL 79.4-94.8 MEAN CORPUSCULAR HEMOGLOBIN (BEAKER) (test 29.7 pg 25.6-32.2 uaam=577) MEAN CORPUSCULAR HEMOGLOBIN CONC (BEAKER) (test 29.4 GM/DL 32.2-35.5 puer=032) RED CELL DISTRIBUTION WIDTH (BEAKER) (test 15.2 % 11.7-14.4 lnyj=055) PLATELET COUNT (BEAKER) (test kaea=211) 375 K/CU MM 150-450 MEAN PLATELET VOLUME (BEAKER) (test pfqj=497) 10.7 fL 9.4-12.3 NUCLEATED RED BLOOD CELLS (BEAKER) (test 0 /100 WBC 0-0 zjqe=214) NEUTROPHILS RELATIVE PERCENT (BEAKER) (test 82 % dtbx=866) LYMPHOCYTES RELATIVE PERCENT (BEAKER) (test 9 % sqtd=417) MONOCYTES RELATIVE PERCENT (BEAKER) (test 6 % vjnz=118) EOSINOPHILS RELATIVE PERCENT (BEAKER) (test 2 % olqf=183) BASOPHILS RELATIVE PERCENT (BEAKER) (test 1 % huyi=360) NEUTROPHILS ABSOLUTE COUNT (BEAKER) (test 11.11 K/ L 1.56-6.13 omvq=975) LYMPHOCYTES ABSOLUTE COUNT (BEAKER) (test 1.17 K/ L 1.18-3.74 lwri=545) MONOCYTES ABSOLUTE COUNT (BEAKER) (test 0.83 K/ L 0.24-0.36 xjeo=804) EOSINOPHILS ABSOLUTE COUNT (BEAKER) (test 0.25 K/ L 0.04-0.36 obfy=463) BASOPHILS ABSOLUTE COUNT (BEAKER) (test 0.07 K/ L 0.01-0.08 betm=829) IMMATURE GRANULOCYTES-RELATIVE PERCENT (BEAKER) 1 % 0-1 (test thzm=5408) OCCULT BLOOD, [id number] 01:02:00 Test Item Value Reference Range Comments FECAL OCCULT BLOOD (BEAKER) (test sxfp=036) Negative Negative POCT-GLUCOSE [id number] 00:46:00 Test Item Value Reference Range Comments POC-GLUCOSE METER (BEAKER) 149 mg/dL 70-110 TESTED AT [facility] [address] [facility] (test gqpc=8275) [facility] [address] C. DIFFICILE GDH [id number] 19:51:00 Test Item Value Reference Range Comments CDT TOXIN (test Negative Negative anur=[id number]) CDT GDH ANTIGEN (test Negative Negative No indication of Clostridium shvr=[id number]) difficile infection and no colonization. Discontinue enteric isolation and therapy. Testing performed by [employer] Rapid Cassette Assay. For GDH, published sensitivity of the assay is 98.7% compared to cytotoxicity testing. For Toxin AB, published sensitivity is 87.8% and specificity 99.4% compared to cytotoxicity testing.Verification of kit performance was done by the [facility] Microbiology Lab prior to clinical use.POCT-GLUCOSE [id number] 18:11:00 Test Item Value Reference Range Comments POC-GLUCOSE METER (BEAKER) 201 mg/dL 70-110 TESTED AT [address] (test osdw=0825) [place] [id number] BLOOD GAS, [id number] 17:03:00 Test Item Value Reference Range Comments PH ARTERIAL (BEAKER) (test ckya=467) 7.41 7.35-7.45 PCO2 ARTERIAL (BEAKER) (test xhns=688) 45 mmHg 35-45 PO2 ARTERIAL (BEAKER) (test faph=699) 94 mmHg 80-90 O2 SATURATION ARTERIAL (BEAKER) (test ixto=433) 97.3 % 96.0-97.0 HCO3 ARTERIAL (BEAKER) (test qzqe=809) 28 mmol/L 21-29 BASE EXCESS ARTERIAL (BEAKER) (test xzwj=759) 2.3 mmol/L -2.0-3.0 PATIENT TEMPERATURE (BEAKER) (test tcak=5221) 36.6 C FIO2 (BEAKER) (test rkxm=7915) 40.0 % POCT-GLUCOSE [id number] 12:44:00 Test Item Value Reference Range Comments POC-GLUCOSE METER (BEAKER) 117 mg/dL 70-110 TESTED AT [address] (test ynwd=7438) [place] [id number] B-TYPE NATRIURETIC FACTOR (BNP)2017-07-27 11:13:00 Test Item Value Reference Range Comments B-TYPE NATRIURETIC PEPTIDE (BEAKER) (test 1198 pg/mL 0-100 fmiq=637) LACTIC ACID, VENOUS, WHOLE [id number] 11:12:00 Test Item Value Reference Range Comments LACTATE BLOOD VENOUS (2) (BEAKER) (test 0.7 mmol/L 0.5-2.2 azxi=8183) Effective 08/06/2015: Units/Reference Range ChangeNew: 0.5-2.2 mmol/L Previous: 5 -20 mg/dLOXYGEN SATURATION, [id number] 10:28:00 Test Item Value Reference Range Comments O2 SATURATION (MEASURED) (BEAKER) (test zuqs=6030) 59.6 % RAD, CHEST, 1 VIEW, NON [id number] 08:23:00Reason for exam:->acute respiratory insufficiencyShould this be [...] Verified Date/Time: 07/27/2017 08:23 :08 Reading Location: [facility] Radiology Reading Room POCT-GLUCOSE [id number] 07:53:00 Test Item Value Reference Range Comments POC-GLUCOSE METER (BEAKER) 124 mg/dL 70-110 TESTED AT [facility] [address] [place] [address] (test kxvr=9058) [facility] [address] BASIC METABOLIC [id number] 06:33:00 Test Item Value Reference Range Comments SODIUM (BEAKER) (test 144 meq/L 136-145 oqsh=251) POTASSIUM (BEAKER) (test 3.8 meq/L 3.5-5.1 vpmt=515) CHLORIDE (BEAKER) (test 109 meq/L 98-107 uwtu=958) CO2 (BEAKER) (test 24 meq/L 22-29 cnjx=452) BLOOD UREA NITROGEN 20 mg/dL 7-21 (BEAKER) (test uinr=986) CREATININE (BEAKER) (test 1.40 mg/dL 0.57-1.25 czip=098) GLUCOSE RANDOM (BEAKER) 111 mg/dL 70-105 (test jsby=715) CALCIUM (BEAKER) (test 8.8 mg/dL 8.4-10.2 lvyq=079) EGFR (BEAKER) (test 45 mL/min/1.73 sq m ESTIMATED GFR IS NOT pejl=4433) ACCURATE CREATININE CLEARANCE IN PREDICTING GLOMERULAR FILTRATION RATE. ESTIMATED GFR IS NOT APPLICABLE FOR DIALYSIS PATIENTS. [id number] 06:24:00 Test Item Value Reference Range Comments PHOSPHORUS (BEAKER) (test gial=824) 3.3 mg/dL 2.3-4.7 BASIC METABOLIC [id number] 06:24:00 Test Item Value Reference Range Comments SODIUM (BEAKER) (test 145 meq/L 136-145 prji=061) POTASSIUM (BEAKER) (test 3.8 meq/L 3.5-5.1 xuqg=355) CHLORIDE (BEAKER) (test 110 meq/L 98-107 zqjr=733) CO2 (BEAKER) (test 24 meq/L 22-29 ynrh=054) BLOOD UREA NITROGEN 21 mg/dL 7-21 (BEAKER) (test kwko=957) CREATININE (BEAKER) (test 1.39 mg/dL 0.57-1.25 ylng=719) GLUCOSE RANDOM (BEAKER) 112 mg/dL 70-105 (test bopi=894) CALCIUM (BEAKER) (test 8.9 mg/dL 8.4-10.2 ddwi=103) EGFR (BEAKER) (test 45 mL/min/1.73 sq m ESTIMATED GFR IS NOT hjxp=0607) ACCURATE CREATININE CLEARANCE IN PREDICTING GLOMERULAR FILTRATION RATE. ESTIMATED GFR IS NOT APPLICABLE FOR DIALYSIS PATIENTS. [id number] 03:27:00 Test Item Value Reference Range Comments PROCALCITONIN (BEAKER) (test omwt=9184) 0.28 ng/mL <0.05 SEPSIS RISK (ng/mL)Low: 0.05-0.50Intermediate: 0.51-2.00High: & gt;=2.01LACTATE DEHYDROGENASE (LDH)2017-07-27 03:07:00 Test Item Value Reference Range Comments LACTATE DEHYDROGENASE (BEAKER) (test vcpf=276) 615 U/L 125-220 HEPATIC FUNCTION [id number] 03:07:00 Test Item Value Reference Range Comments TOTAL PROTEIN (BEAKER) (test aldk=343) 6.8 gm/dL 6.0-8.3 ALBUMIN (BEAKER) (test voat=0923) 3.2 g/dL 3.5-5.0 BILIRUBIN TOTAL (BEAKER) (test roha=290) 0.9 mg/dL 0.2-1.2 BILIRUBIN DIRECT (BEAKER) (test pknp=379) 0.5 mg/dL 0.1-0.5 ALKALINE PHOSPHATASE (BEAKER) (test pacw=709) 58 U/L 40-150 AST (SGOT) (BEAKER) (test canx=683) 21 U/L 5-34 ALT (SGPT) (BEAKER) (test mboy=462) 15 U/L 6-55 CALCIUM, [id number] 02:57:00 Test Item Value Reference Range Comments CALCIUM IONIZED (BEAKER) (test euwo=367) 1.14 mmol/L 1.12-1.27 PH, BLOOD (BEAKER) (test uflp=9733) 7.42 CBC W/PLT COUNT & AUTO [id number] 02:56:00 Test Item Value Reference Range Comments WHITE BLOOD CELL COUNT (BEAKER) (test fqqs=135) 12.4 K/ L 3.5-10.5 RED BLOOD CELL COUNT (BEAKER) (test ppdl=397) 2.50 M/ L 3.93-5.22 HEMOGLOBIN (BEAKER) (test lfgt=791) 7.4 GM/DL 11.2-15.7 HEMATOCRIT (BEAKER) (test vtqe=720) 24.7 % 34.1-44.9 MEAN CORPUSCULAR VOLUME (BEAKER) (test szfm=308) 98.8 fL 79.4-94.8 MEAN CORPUSCULAR HEMOGLOBIN (BEAKER) (test 29.6 pg 25.6-32.2 snfg=526) MEAN CORPUSCULAR HEMOGLOBIN CONC (BEAKER) (test 30.0 GM/DL 32.2-35.5 rnkt=440) RED CELL DISTRIBUTION WIDTH (BEAKER) (test 15.1 % 11.7-14.4 mfjz=092) PLATELET COUNT (BEAKER) (test uzox=784) 233 K/CU MM 150-450 MEAN PLATELET VOLUME (BEAKER) (test qfri=473) 10.5 fL 9.4-12.3 NUCLEATED RED BLOOD CELLS (BEAKER) (test 0 /100 WBC 0-0 auzl=329) NEUTROPHILS RELATIVE PERCENT (BEAKER) (test 80 % tfns=118) LYMPHOCYTES RELATIVE PERCENT (BEAKER) (test 9 % bbsd=919) MONOCYTES RELATIVE PERCENT (BEAKER) (test 7 % ajwb=836) EOSINOPHILS RELATIVE PERCENT (BEAKER) (test 2 % beiz=191) BASOPHILS RELATIVE PERCENT (BEAKER) (test 0 % vvgm=124) NEUTROPHILS ABSOLUTE COUNT (BEAKER) (test 9.94 K/ L 1.56-6.13 lfsj=877) LYMPHOCYTES ABSOLUTE COUNT (BEAKER) (test 1.15 K/ L 1.18-3.74 qhpg=598) MONOCYTES ABSOLUTE COUNT (BEAKER) (test 0.90 K/ L 0.24-0.36 pftt=115) EOSINOPHILS ABSOLUTE COUNT (BEAKER) (test 0.24 K/ L 0.04-0.36 vffy=149) BASOPHILS ABSOLUTE COUNT (BEAKER) (test 0.05 K/ L 0.01-0.08 ztjf=559) IMMATURE GRANULOCYTES-RELATIVE PERCENT (BEAKER) 1 % 0-1 (test pncg=2462) [id number] 01:29:00 Test Item Value Reference Range Comments PHOSPHORUS (BEAKER) (test fvok=219) 3.5 mg/dL 2.3-4.7 BASIC METABOLIC [id number] 01:29:00 Test Item Value Reference Range Comments SODIUM (BEAKER) (test 145 meq/L 136-145 ppbd=854) POTASSIUM (BEAKER) (test 3.4 meq/L 3.5-5.1 ibxe=168) CHLORIDE (BEAKER) (test 107 meq/L 98-107 erlk=695) CO2 (BEAKER) (test 26 meq/L 22-29 zgms=190) BLOOD UREA NITROGEN 21 mg/dL 7-21 (BEAKER) (test hnzz=143) CREATININE (BEAKER) (test 1.47 mg/dL 0.57-1.25 sjyl=127) GLUCOSE RANDOM (BEAKER) 138 mg/dL 70-105 (test mnza=463) CALCIUM (BEAKER) (test 9.1 mg/dL 8.4-10.2 pyba=002) EGFR (BEAKER) (test 43 mL/min/1.73 sq m ESTIMATED GFR IS NOT cszw=6977) ACCURATE CREATININE CLEARANCE IN PREDICTING GLOMERULAR FILTRATION RATE. ESTIMATED GFR IS NOT APPLICABLE FOR DIALYSIS PATIENTS. POCT-GLUCOSE [id number] 22:08:00 Test Item Value Reference Range Comments POC-GLUCOSE METER (BEAKER) 166 mg/dL 70-110 TESTED AT [facility] [address] [facility] (test kbvg=7630) [facility] [address] [id number] 21:22:00 Test Item Value Reference Range Comments MAGNESIUM (BEAKER) (test bouv=590) 2.2 mg/dL 1.6-2.6 [id number] 19:23:00 Test Item Value Reference Range Comments PHOSPHORUS (BEAKER) (test kurk=156) 2.9 mg/dL 2.3-4.7 BASIC METABOLIC [id number] 19:23:00 Test Item Value Reference Range Comments SODIUM (BEAKER) (test 145 meq/L 136-145 yssv=157) POTASSIUM (BEAKER) (test 3.6 meq/L 3.5-5.1 knuv=623) CHLORIDE (BEAKER) (test 109 meq/L 98-107 uebz=756) CO2 (BEAKER) (test 24 meq/L 22-29 cipg=709) BLOOD UREA NITROGEN 22 mg/dL 7-21 (BEAKER) (test gbbz=822) CREATININE (BEAKER) (test 1.48 mg/dL 0.57-1.25 qjlm=288) GLUCOSE RANDOM (BEAKER) 150 mg/dL 70-105 (test bfzd=092) CALCIUM (BEAKER) (test 9.0 mg/dL 8.4-10.2 jngc=108) EGFR (BEAKER) (test 42 mL/min/1.73 sq m ESTIMATED GFR IS NOT udyo=1329) ACCURATE CREATININE CLEARANCE IN PREDICTING GLOMERULAR FILTRATION RATE. ESTIMATED GFR IS NOT APPLICABLE FOR DIALYSIS PATIENTS. POCT-GLUCOSE [id number] 18:13:00 Test Item Value Reference Range Comments POC-GLUCOSE METER (BEAKER) 188 mg/dL 70-110 TESTED AT [facility] [address] [facility] (test pqgl=7551) [facility] [address] [id number] 13:12:00 Test Item Value Reference Range Comments PHOSPHORUS (BEAKER) (test yupw=625) 2.7 mg/dL 2.3-4.7 BASIC METABOLIC [id number] 13:12:00 Test Item Value Reference Range Comments SODIUM (BEAKER) (test 144 meq/L 136-145 sekz=057) POTASSIUM (BEAKER) (test 3.5 meq/L 3.5-5.1 kxsx=330) CHLORIDE (BEAKER) (test 108 meq/L 98-107 cjjt=414) CO2 (BEAKER) (test 26 meq/L 22-29 wnax=422) BLOOD UREA NITROGEN 23 mg/dL 7-21 (BEAKER) (test kzaq=319) CREATININE (BEAKER) (test 1.45 mg/dL 0.57-1.25 zzql=961) GLUCOSE RANDOM (BEAKER) 183 mg/dL 70-105 (test vwfo=552) CALCIUM (BEAKER) (test 8.5 mg/dL 8.4-10.2 ixig=623) EGFR (BEAKER) (test 43 mL/min/1.73 sq m ESTIMATED GFR IS NOT debx=5928) ACCURATE CREATININE CLEARANCE IN PREDICTING GLOMERULAR FILTRATION RATE. ESTIMATED GFR IS NOT APPLICABLE FOR DIALYSIS PATIENTS. POCT-GLUCOSE [id number] 12:07:00 Test Item Value Reference Range Comments POC-GLUCOSE METER (BEAKER) 203 mg/dL 70-110 TESTED AT [facility] [address] [facility] (test nstt=6891) [facility] [address] [id number] 09:50:00 Test Item Value Reference Range Comments MAGNESIUM (BEAKER) (test jyof=245) 2.6 mg/dL 1.6-2.6 RAD, CHEST, 1 VIEW, NON [id number] 08:06:00Reason for exam:->acute respiratory insufficiencyShould this be [...] obliquity. No pneumothorax is seen. Signed: Yoshi Martinezeport Verified Date/Time: 07/26/2017 08:06:19 [facility] [place] [facility] POCT-GLUCOSE [id number] 07:58:00 Test Item Value Reference Range Comments POC-GLUCOSE METER (BEAKER) 176 mg/dL 70-110 TESTED AT [facility] [address] [facility] (test tbdf=8541) [facility] [address] OXYGEN SATURATION, [id number] 05:23:00 Test Item Value Reference Range Comments O2 SATURATION (MEASURED) (BEAKER) (test pcwe=4076) 64.5 % calibrationBLOOD GAS, [id number] 04:43:00 Test Item Value Reference Range Comments PH ARTERIAL (BEAKER) (test slhq=333) 7.44 7.35-7.45 PCO2 ARTERIAL (BEAKER) (test llsk=066) 44 mmHg 35-45 PO2 ARTERIAL (BEAKER) (test ubcc=391) 127 mmHg 80-90 O2 SATURATION ARTERIAL (BEAKER) (test pcsl=840) 98.6 % 96.0-97.0 HCO3 ARTERIAL (BEAKER) (test ladq=555) 29 mmol/L 21-29 BASE EXCESS ARTERIAL (BEAKER) (test tque=837) 4.6 mmol/L -2.0-3.0 PATIENT TEMPERATURE (BEAKER) (test oove=3927) 37.3 C FIO2 (BEAKER) (test rfsi=9376) 100.0 % [id number] 04:31:00 Test Item Value Reference Range Comments PHOSPHORUS (BEAKER) (test ytgc=251) 3.4 mg/dL 2.3-4.7 [id number] 04:31:00 Test Item Value Reference Range Comments MAGNESIUM (BEAKER) (test vspp=782) 2.2 mg/dL 1.6-2.6 BASIC METABOLIC [id number] 04:31:00 Test Item Value Reference Range Comments SODIUM (BEAKER) (test 146 meq/L 136-145 uadz=018) POTASSIUM (BEAKER) (test 3.7 meq/L 3.5-5.1 kixj=746) CHLORIDE (BEAKER) (test 108 meq/L 98-107 hswv=349) CO2 (BEAKER) (test 28 meq/L 22-29 cwap=291) BLOOD UREA NITROGEN 23 mg/dL 7-21 (BEAKER) (test zezj=671) CREATININE (BEAKER) (test 1.51 mg/dL 0.57-1.25 hltj=850) GLUCOSE RANDOM (BEAKER) 151 mg/dL 70-105 (test wzhc=862) CALCIUM (BEAKER) (test 9.4 mg/dL 8.4-10.2 jani=591) EGFR (BEAKER) (test 41 mL/min/1.73 sq m ESTIMATED GFR IS NOT rfhn=0312) ACCURATE CREATININE CLEARANCE IN PREDICTING GLOMERULAR FILTRATION RATE. ESTIMATED GFR IS NOT APPLICABLE FOR DIALYSIS PATIENTS. HEPATIC FUNCTION [id number] 04:31:00 Test Item Value Reference Range Comments TOTAL PROTEIN (BEAKER) (test sjvo=026) 6.6 gm/dL 6.0-8.3 ALBUMIN (BEAKER) (test lnst=2610) 3.2 g/dL 3.5-5.0 BILIRUBIN TOTAL (BEAKER) (test rtal=159) 1.0 mg/dL 0.2-1.2 BILIRUBIN DIRECT (BEAKER) (test jyhe=682) 0.5 mg/dL 0.1-0.5 ALKALINE PHOSPHATASE (BEAKER) (test bgxf=578) 60 U/L 40-150 AST (SGOT) (BEAKER) (test utzy=719) 25 U/L 5-34 ALT (SGPT) (BEAKER) (test bgrp=265) 18 U/L 6-55 COMPREHENSIVE METABOLIC [id number] 04:31:00 Test Item Value Reference Range Comments TOTAL PROTEIN (BEAKER) 6.6 gm/dL 6.0-8.3 (test zchn=982) ALBUMIN (BEAKER) (test 3.2 g/dL 3.5-5.0 xrmg=3328) ALKALINE PHOSPHATASE 60 U/L 40-150 (BEAKER) (test awgk=194) BILIRUBIN TOTAL (BEAKER) 1.0 mg/dL 0.2-1.2 (test dhtx=372) SODIUM (BEAKER) (test 146 meq/L 136-145 wgly=958) POTASSIUM (BEAKER) (test 3.7 meq/L 3.5-5.1 atkn=241) CHLORIDE (BEAKER) (test 108 meq/L 98-107 ynly=374) CO2 (BEAKER) (test 28 meq/L 22-29 ovau=835) BLOOD UREA NITROGEN 23 mg/dL 7-21 (BEAKER) (test ysvw=767) CREATININE (BEAKER) (test 1.51 mg/dL 0.57-1.25 qspu=698) GLUCOSE RANDOM (BEAKER) 151 mg/dL 70-105 (test wfrd=543) CALCIUM (BEAKER) (test 9.4 mg/dL 8.4-10.2 cokb=712) AST (SGOT) (BEAKER) (test 25 U/L 5-34 rvek=015) ALT (SGPT) (BEAKER) (test 18 U/L 6-55 prdq=640) EGFR (BEAKER) (test 41 mL/min/1.73 sq m ESTIMATED GFR IS NOT kspu=6980) ACCURATE CREATININE CLEARANCE IN PREDICTING GLOMERULAR FILTRATION RATE. ESTIMATED GFR IS NOT APPLICABLE FOR DIALYSIS PATIENTS. LACTATE DEHYDROGENASE (LDH)2017-07-26 04:31:00 Test Item Value Reference Range Comments LACTATE DEHYDROGENASE (BEAKER) (test nlad=600) 661 U/L 125-220 CALCIUM, [id number] 04:23:00 Test Item Value Reference Range Comments CALCIUM IONIZED (BEAKER) (test bchu=219) 1.15 mmol/L 1.12-1.27 PH, BLOOD (BEAKER) (test dstw=5414) 7.47 CBC W/PLT COUNT & AUTO [id number] 04:20:00 Test Item Value Reference Range Comments WHITE BLOOD CELL COUNT (BEAKER) (test wfjw=395) 13.0 K/ L 3.5-10.5 RED BLOOD CELL COUNT (BEAKER) (test qork=317) 2.56 M/ L 3.93-5.22 HEMOGLOBIN (BEAKER) (test ggip=054) 7.6 GM/DL 11.2-15.7 HEMATOCRIT (BEAKER) (test aqru=625) 25.4 % 34.1-44.9 MEAN CORPUSCULAR VOLUME (BEAKER) (test rvsk=624) 99.2 fL 79.4-94.8 MEAN CORPUSCULAR HEMOGLOBIN (BEAKER) (test 29.7 pg 25.6-32.2 rqpb=524) MEAN CORPUSCULAR HEMOGLOBIN CONC (BEAKER) (test 29.9 GM/DL 32.2-35.5 zywq=206) RED CELL DISTRIBUTION WIDTH (BEAKER) (test 15.0 % 11.7-14.4 ybvo=706) PLATELET COUNT (BEAKER) (test qyxh=068) 161 K/CU MM 150-450 MEAN PLATELET VOLUME (BEAKER) (test leyi=206) 11.0 fL 9.4-12.3 NUCLEATED RED BLOOD CELLS (BEAKER) (test 0 /100 WBC 0-0 kvmw=031) NEUTROPHILS RELATIVE PERCENT (BEAKER) (test 79 % znqn=593) LYMPHOCYTES RELATIVE PERCENT (BEAKER) (test 10 % cyvy=171) MONOCYTES RELATIVE PERCENT (BEAKER) (test 7 % xmij=627) EOSINOPHILS RELATIVE PERCENT (BEAKER) (test 2 % njgp=367) BASOPHILS RELATIVE PERCENT (BEAKER) (test 1 % agiz=692) NEUTROPHILS ABSOLUTE COUNT (BEAKER) (test 10.33 K/ L 1.56-6.13 ljbd=513) LYMPHOCYTES ABSOLUTE COUNT (BEAKER) (test 1.35 K/ L 1.18-3.74 aont=320) MONOCYTES ABSOLUTE COUNT (BEAKER) (test 0.96 K/ L 0.24-0.36 airu=215) EOSINOPHILS ABSOLUTE COUNT (BEAKER) (test 0.19 K/ L 0.04-0.36 hwjb=512) BASOPHILS ABSOLUTE COUNT (BEAKER) (test 0.07 K/ L 0.01-0.08 poox=817) IMMATURE GRANULOCYTES-RELATIVE PERCENT (BEAKER) 1 % 0-1 (test rayo=1988) [id number] 21:19:00 Test Item Value Reference Range Comments PHOSPHORUS (BEAKER) (test mkwn=346) 4.4 mg/dL 2.3-4.7 [id number] 21:19:00 Test Item Value Reference Range Comments MAGNESIUM (BEAKER) (test fmyp=017) 2.1 mg/dL 1.6-2.6 BASIC METABOLIC [id number] 21:19:00 Test Item Value Reference Range Comments SODIUM (BEAKER) (test 146 meq/L 136-145 zexf=450) POTASSIUM (BEAKER) (test 3.9 meq/L 3.5-5.1 rrdc=712) CHLORIDE (BEAKER) (test 108 meq/L 98-107 sboy=183) CO2 (BEAKER) (test 27 meq/L 22-29 nmhk=162) BLOOD UREA NITROGEN 24 mg/dL 7-21 (BEAKER) (test lyjq=665) CREATININE (BEAKER) (test 1.64 mg/dL 0.57-1.25 kbjg=720) GLUCOSE RANDOM (BEAKER) 120 mg/dL 70-105 (test esoi=679) CALCIUM (BEAKER) (test 9.5 mg/dL 8.4-10.2 dvta=011) EGFR (BEAKER) (test 38 mL/min/1.73 sq m ESTIMATED GFR IS NOT rzpx=3995) ACCURATE CREATININE CLEARANCE IN PREDICTING GLOMERULAR FILTRATION RATE. ESTIMATED GFR IS NOT APPLICABLE FOR DIALYSIS PATIENTS. POCT-GLUCOSE [id number] 18:36:00 Test Item Value Reference Range Comments POC-GLUCOSE METER (BEAKER) 129 mg/dL 70-110 TESTED AT [address] (test bkkm=5296) [place] [id number] POCT-GLUCOSE [id number] 16:19:00 Test Item Value Reference Range Comments POC-GLUCOSE METER (BEAKER) 132 mg/dL 70-110 TESTED AT [address] (test werl=3227) [place] [address] [id number] 13:57:00 Test Item Value Reference Range Comments PHOSPHORUS (BEAKER) (test xakh=413) 4.2 mg/dL 2.3-4.7 BASIC METABOLIC [id number] 13:57:00 Test Item Value Reference Range Comments SODIUM (BEAKER) (test 147 meq/L 136-145 ydql=350) POTASSIUM (BEAKER) (test 3.7 meq/L 3.5-5.1 nmkt=245) CHLORIDE (BEAKER) (test 110 meq/L 98-107 zvwz=304) CO2 (BEAKER) (test 25 meq/L 22-29 oiph=463) BLOOD UREA NITROGEN 23 mg/dL 7-21 (BEAKER) (test vpck=864) CREATININE (BEAKER) (test 1.58 mg/dL 0.57-1.25 bfut=828) GLUCOSE RANDOM (BEAKER) 129 mg/dL 70-105 (test lnii=662) CALCIUM (BEAKER) (test 9.2 mg/dL 8.4-10.2 rzad=452) EGFR (BEAKER) (test 39 mL/min/1.73 sq m ESTIMATED GFR IS NOT hfaf=7219) ACCURATE CREATININE CLEARANCE IN PREDICTING GLOMERULAR FILTRATION RATE. ESTIMATED GFR IS NOT APPLICABLE FOR DIALYSIS PATIENTS. BLOOD GAS, [id number] 13:48:00 Test Item Value Reference Range Comments PH ARTERIAL (BEAKER) (test rlkq=509) 7.42 7.35-7.45 PCO2 ARTERIAL (BEAKER) (test avci=870) 47 mmHg 35-45 PO2 ARTERIAL (BEAKER) (test uwsk=468) 202 mmHg 80-90 O2 SATURATION ARTERIAL (BEAKER) (test wnwy=394) 99.4 % 96.0-97.0 HCO3 ARTERIAL (BEAKER) (test pzkb=253) 29 mmol/L 21-29 BASE EXCESS ARTERIAL (BEAKER) (test ebfs=702) 4.4 mmol/L -2.0-3.0 PATIENT TEMPERATURE (BEAKER) (test cefo=3807) 37.6 C FIO2 (BEAKER) (test wmaj=1173) 100.0 % POCT-GLUCOSE [id number] 13:31:00 Test Item Value Reference Range Comments POC-GLUCOSE METER (BEAKER) 128 mg/dL 70-110 TESTED AT [address] (test rnbl=8760) [place] [id number] POCT-GLUCOSE [id number] 11:02:00 Test Item Value Reference Range Comments POC-GLUCOSE METER (BEAKER) 137 mg/dL 70-110 TESTED AT [address] (test uyeu=8909) [place] [address] POCT-GLUCOSE [id number] 11:02:00 Test Item Value Reference Range Comments POC-GLUCOSE METER (BEAKER) 141 mg/dL 70-110 TESTED AT [address] (test pgmo=2794) [place] [address] POCT-GLUCOSE [id number] 11:02:00 Test Item Value Reference Range Comments POC-GLUCOSE METER (BEAKER) 104 mg/dL 70-110 TESTED AT [address] (test cfcc=1785) [place] [address] BLOOD [id number] 11:00:00 Test Item Value Reference Range Comments CULTURE (BEAKER) (test kreb=4227) No growth in 5 days BLOOD [id number] 11:00:00 Test Item Value Reference Range Comments CULTURE (BEAKER) (test jbpt=9684) No growth in 5 days CBC W/PLT COUNT & AUTO [id number] 08:54:00 Test Item Value Reference Range Comments WHITE BLOOD CELL COUNT (BEAKER) (test pqgb=274) 13.8 K/ L 3.5-10.5 RED BLOOD CELL COUNT (BEAKER) (test jlog=674) 2.54 M/ L 3.93-5.22 HEMOGLOBIN (BEAKER) (test zkvt=358) 7.7 GM/DL 11.2-15.7 HEMATOCRIT (BEAKER) (test pnab=891) 25.2 % 34.1-44.9 MEAN CORPUSCULAR VOLUME (BEAKER) (test fkmk=019) 99.2 fL 79.4-94.8 MEAN CORPUSCULAR HEMOGLOBIN (BEAKER) (test 30.3 pg 25.6-32.2 jwuh=076) MEAN CORPUSCULAR HEMOGLOBIN CONC (BEAKER) (test 30.6 GM/DL 32.2-35.5 dvvx=169) RED CELL DISTRIBUTION WIDTH (BEAKER) (test 15.2 % 11.7-14.4 fkyu=445) PLATELET COUNT (BEAKER) (test chyk=424) 127 K/CU MM 150-450 MEAN PLATELET VOLUME (BEAKER) (test eazi=474) 10.6 fL 9.4-12.3 NUCLEATED RED BLOOD CELLS (BEAKER) (test 0 /100 WBC 0-0 fbpf=686) NEUTROPHILS RELATIVE PERCENT (BEAKER) (test 81 % ddpu=088) LYMPHOCYTES RELATIVE PERCENT (BEAKER) (test 8 % jucj=355) MONOCYTES RELATIVE PERCENT (BEAKER) (test 9 % posg=373) EOSINOPHILS RELATIVE PERCENT (BEAKER) (test 1 % xjwz=785) BASOPHILS RELATIVE PERCENT (BEAKER) (test 0 % qppy=282) NEUTROPHILS ABSOLUTE COUNT (BEAKER) (test 11.11 K/ L 1.56-6.13 tckg=806) LYMPHOCYTES ABSOLUTE COUNT (BEAKER) (test 1.14 K/ L 1.18-3.74 jsyw=798) MONOCYTES ABSOLUTE COUNT (BEAKER) (test 1.20 K/ L 0.24-0.36 lkks=768) EOSINOPHILS ABSOLUTE COUNT (BEAKER) (test 0.15 K/ L 0.04-0.36 amfd=454) BASOPHILS ABSOLUTE COUNT (BEAKER) (test 0.04 K/ L 0.01-0.08 sxlk=925) IMMATURE GRANULOCYTES-RELATIVE PERCENT (BEAKER) 1 % 0-1 (test edex=8472) BLOOD GAS, [id number] 08:40:00 Test Item Value Reference Range Comments PH ARTERIAL (BEAKER) (test xxnb=693) 7.43 7.35-7.45 PCO2 ARTERIAL (BEAKER) (test uknf=005) 35 mmHg 35-45 PO2 ARTERIAL (BEAKER) (test cxvz=389) 82 mmHg 80-90 O2 SATURATION ARTERIAL (BEAKER) (test mckk=494) 95.7 % 96.0-97.0 HCO3 ARTERIAL (BEAKER) (test wjji=510) 22 mmol/L 21-29 BASE EXCESS ARTERIAL (BEAKER) (test wxxl=972) -1.3 mmol/L -2.0-3.0 PATIENT TEMPERATURE (BEAKER) (test fpwy=7542) 38.3 C FIO2 (BEAKER) (test yips=6042) 40.0 % [id number] 06:59:00 Test Item Value Reference Range Comments PHOSPHORUS (BEAKER) (test jdag=299) 3.4 mg/dL 2.3-4.7 [id number] 06:59:00 Test Item Value Reference Range Comments MAGNESIUM (BEAKER) (test ogwz=938) 2.0 mg/dL 1.6-2.6 BASIC METABOLIC [id number] 06:59:00 Test Item Value Reference Range Comments SODIUM (BEAKER) (test 147 meq/L 136-145 gyme=590) POTASSIUM (BEAKER) (test 3.7 meq/L 3.5-5.1 lydy=958) CHLORIDE (BEAKER) (test 111 meq/L 98-107 fpsw=667) CO2 (BEAKER) (test 23 meq/L 22-29 fqfg=792) BLOOD UREA NITROGEN 24 mg/dL 7-21 (BEAKER) (test gabk=509) CREATININE (BEAKER) (test 1.57 mg/dL 0.57-1.25 rsoe=598) GLUCOSE RANDOM (BEAKER) 121 mg/dL 70-105 (test qnct=803) CALCIUM (BEAKER) (test 9.0 mg/dL 8.4-10.2 rqig=656) EGFR (BEAKER) (test 39 mL/min/1.73 sq m ESTIMATED GFR IS NOT mtwx=6299) ACCURATE CREATININE CLEARANCE IN PREDICTING GLOMERULAR FILTRATION RATE. ESTIMATED GFR IS NOT APPLICABLE FOR DIALYSIS PATIENTS. POCT-GLUCOSE [id number] 06:27:00 Test Item Value Reference Range Comments POC-GLUCOSE METER (BEAKER) 95 mg/dL 70-110 TESTED AT [place] [id number] [facility] (test jxyi=5481) [facility] [address] POCT-GLUCOSE [id number] 06:04:00 Test Item Value Reference Range Comments POC-GLUCOSE METER (BEAKER) 128 mg/dL 70-110 TESTED AT [address] (test nazh=3025) [facility] [address] [id number] 05:36:00 Test Item Value Reference Range Comments PHOSPHORUS (BEAKER) (test gzzw=302) 3.4 mg/dL 2.3-4.7 BASIC METABOLIC [id number] 05:36:00 Test Item Value Reference Range Comments SODIUM (BEAKER) (test 146 meq/L 136-145 mhlu=817) POTASSIUM (BEAKER) (test 3.6 meq/L 3.5-5.1 qcfn=970) CHLORIDE (BEAKER) (test 110 meq/L 98-107 glpa=467) CO2 (BEAKER) (test 25 meq/L 22-29 xuan=906) BLOOD UREA NITROGEN 25 mg/dL 7-21 (BEAKER) (test zewk=239) CREATININE (BEAKER) (test 1.58 mg/dL 0.57-1.25 qjay=620) GLUCOSE RANDOM (BEAKER) 114 mg/dL 70-105 (test kbyy=469) CALCIUM (BEAKER) (test 8.9 mg/dL 8.4-10.2 mvvd=010) EGFR (BEAKER) (test 39 mL/min/1.73 sq m ESTIMATED GFR IS NOT ukab=8570) ACCURATE CREATININE CLEARANCE IN PREDICTING GLOMERULAR FILTRATION RATE. ESTIMATED GFR IS NOT APPLICABLE FOR DIALYSIS PATIENTS. HEPATIC FUNCTION [id number] 05:36:00 Test Item Value Reference Range Comments TOTAL PROTEIN (BEAKER) (test durn=614) 6.3 gm/dL 6.0-8.3 ALBUMIN (BEAKER) (test pcil=7440) 3.1 g/dL 3.5-5.0 BILIRUBIN TOTAL (BEAKER) (test aujo=628) 1.1 mg/dL 0.2-1.2 BILIRUBIN DIRECT (BEAKER) (test bsut=509) 0.7 mg/dL 0.1-0.5 ALKALINE PHOSPHATASE (BEAKER) (test ysfe=896) 54 U/L 40-150 AST (SGOT) (BEAKER) (test ikfr=131) 23 U/L 5-34 ALT (SGPT) (BEAKER) (test dswn=025) 17 U/L 6-55 LACTATE DEHYDROGENASE (LDH)2017-07-25 05:36:00 Test Item Value Reference Range Comments LACTATE DEHYDROGENASE (BEAKER) (test ygvk=354) 695 U/L 125-220 POCT-GLUCOSE [id number] 05:24:00 Test Item Value Reference Range Comments POC-GLUCOSE METER (BEAKER) 102 mg/dL 70-110 TESTED AT [address] (test vfjp=9389) [facility] [address] RAD, CHEST, 1 VIEW, NON [id number] 04:43:00Reason for exam:-> impellaShould this be performed at the bedside?->YesFINAL REPORT Chest one view. Clinical history: impella Comparison: Chest radiograph 07/24/17 Technique: A single frontal view of the chest was obtained. Findings: Cardiomediastinal contours are unchanged. Endotracheal and feeding tubes as well as a right IJ Hamel-Jagdeep catheter are unchanged in position. There are patchy bibasilar opacities which may represent atelectasis and/or pneumonia. There is mild elevation of the left hemidiaphragm. There is no definite pleural effusionor pneumothorax. Signed: Alexia Ramirez MDReport Verified Date/Time: 07/25/2017 04:43:27 ReadingLocation: [facility] B1 C013T Transitional Reading Room [id number] 00:51:00 Test Item Value Reference Range Comments PHOSPHORUS (BEAKER) (test egvx=975) 3.4 mg/dL 2.3-4.7 BASIC METABOLIC [id number] 00:51:00 Test Item Value Reference Range Comments SODIUM (BEAKER) (test 146 meq/L 136-145 wkbh=954) POTASSIUM (BEAKER) (test 4.0 meq/L 3.5-5.1 ouln=543) CHLORIDE (BEAKER) (test 110 meq/L 98-107 egiv=710) CO2 (BEAKER) (test 26 meq/L 22-29 gtqd=498) BLOOD UREA NITROGEN 26 mg/dL 7-21 (BEAKER) (test qazf=359) CREATININE (BEAKER) (test 1.53 mg/dL 0.57-1.25 rcix=927) GLUCOSE RANDOM (BEAKER) 105 mg/dL 70-105 (test vlfb=415) CALCIUM (BEAKER) (test 8.8 mg/dL 8.4-10.2 sknu=875) EGFR (BEAKER) (test 41 mL/min/1.73 sq m ESTIMATED GFR IS NOT jvow=4759) ACCURATE CREATININE CLEARANCE IN PREDICTING GLOMERULAR FILTRATION RATE. ESTIMATED GFR IS NOT APPLICABLE FOR DIALYSIS PATIENTS. POCT-GLUCOSE [id number] 00:32:00 Test Item Value Reference Range Comments POC-GLUCOSE METER (BEAKER) 119 mg/dL 70-110 TESTED AT [address] (test hvbg=8056) [facility] [address] POCT-GLUCOSE [id number] 00:27:00 Test Item Value Reference Range Comments POC-GLUCOSE METER (BEAKER) 114 mg/dL 70-110 TESTED AT [address] (test sykt=5017) [place] [id number] POCT-GLUCOSE [id number] 23:58:00 Test Item Value Reference Range Comments POC-GLUCOSE METER (BEAKER) 117 mg/dL 70-110 TESTED AT [address] (test rsnp=0969) [place] [address] [id number] 21:24:00 Test Item Value Reference Range Comments MAGNESIUM (BEAKER) (test dypo=346) 2.0 mg/dL 1.6-2.6 POCT-GLUCOSE [id number] 20:24:00 Test Item Value Reference Range Comments POC-GLUCOSE METER (BEAKER) 130 mg/dL 70-110 TESTED AT [place] [address] [address] (test iaqf=1102) [facility] [address] [id number] 19:20:00 Test Item Value Reference Range Comments POTASSIUM (BEAKER) (test wzzh=396) 3.6 meq/L 3.5-5.1 [id number] 19:20:00 Test Item Value Reference Range Comments GLUCOSE RANDOM (BEAKER) (test ejcd=056) 168 mg/dL 70-105 [id number] 18:01:00 Test Item Value Reference Range Comments PHOSPHORUS (BEAKER) (test yupo=291) 3.7 mg/dL 2.3-4.7 BASIC METABOLIC [id number] 18:01:00 Test Item Value Reference Range Comments SODIUM (BEAKER) (test 145 meq/L 136-145 xeit=401) POTASSIUM (BEAKER) (test 3.9 meq/L 3.5-5.1 rlzt=229) CHLORIDE (BEAKER) (test 109 meq/L 98-107 jgim=735) CO2 (BEAKER) (test 27 meq/L 22-29 jmkx=234) BLOOD UREA NITROGEN 26 mg/dL 7-21 (BEAKER) (test lnan=739) CREATININE (BEAKER) (test 1.47 mg/dL 0.57-1.25 ipco=932) GLUCOSE RANDOM (BEAKER) 210 mg/dL 70-105 (test fnfm=165) CALCIUM (BEAKER) (test 8.5 mg/dL 8.4-10.2 zphh=267) EGFR (BEAKER) (test 43 mL/min/1.73 sq m ESTIMATED GFR IS NOT coxx=9277) ACCURATE CREATININE CLEARANCE IN PREDICTING GLOMERULAR FILTRATION RATE. ESTIMATED GFR IS NOT APPLICABLE FOR DIALYSIS PATIENTS. GLUCOSE-STAT [id number] 17:14:00 Test Item Value Reference Range Comments GLUCOSE RANDOM (BEAKER) (test dskx=787) 208 mg/dL 70-110 BLOOD GAS, [id number] 17:13:00 Test Item Value Reference Range Comments PH ARTERIAL (BEAKER) (test uwcp=005) 7.44 7.35-7.45 PCO2 ARTERIAL (BEAKER) (test uwrt=985) 43 mmHg 35-45 PO2 ARTERIAL (BEAKER) (test vvgm=299) 58 mmHg 80-90 O2 SATURATION ARTERIAL (BEAKER) (test uimf=622) 90.8 % 96.0-97.0 HCO3 ARTERIAL (BEAKER) (test ueud=042) 28 mmol/L 21-29 BASE EXCESS ARTERIAL (BEAKER) (test thrx=486) 3.9 mmol/L -2.0-3.0 PATIENT TEMPERATURE (BEAKER) (test ephj=1261) 37.0 C FIO2 (BEAKER) (test dmev=3301) 100.0 % RAD, CHEST, 1 VIEW, NON [id number] 14:00:00Reason for exam:->post intubationShould this be performed at the bedside?->YesFINAL REPORT AP chest. HISTORY: Endotracheal tube COMPARISON: 07/24/2017 IMPRESSION:Endotracheal tube projects deep in the trachea, approximately 1-2 cm above the level of the toro. Cardiomegaly similar to previous. Worsening aeration at the left lung base. Mild pulmonary vascular congestion. No pneumothorax. Signed: Mitchel Canela MDReport Verified Date/Time: 07/24/2017 14:00:17 Reading Location: [facility] C013Y CT Body Reading Room [id number] 13:40:00 Test Item Value Reference Range Comments PHOSPHORUS (BEAKER) (test eqyi=425) 4.3 mg/dL 2.3-4.7 [id number] 13:40:00 Test Item Value Reference Range Comments MAGNESIUM (BEAKER) (test izxj=120) 2.0 mg/dL 1.6-2.6 BASIC METABOLIC [id number] 13:40:00 Test Item Value Reference Range Comments SODIUM (BEAKER) (test 145 meq/L 136-145 ddds=110) POTASSIUM (BEAKER) (test 3.9 meq/L 3.5-5.1 dvyl=312) CHLORIDE (BEAKER) (test 108 meq/L 98-107 ntcq=866) CO2 (BEAKER) (test 24 meq/L 22-29 pfhd=665) BLOOD UREA NITROGEN 28 mg/dL 7-21 (BEAKER) (test vrec=336) CREATININE (BEAKER) (test 1.43 mg/dL 0.57-1.25 wdco=451) GLUCOSE RANDOM (BEAKER) 206 mg/dL 70-105 (test evvg=604) CALCIUM (BEAKER) (test 8.5 mg/dL 8.4-10.2 jvkj=075) EGFR (BEAKER) (test 44 mL/min/1.73 sq m ESTIMATED GFR IS NOT gpgd=4760) ACCURATE CREATININE CLEARANCE IN PREDICTING GLOMERULAR FILTRATION RATE. ESTIMATED GFR IS NOT APPLICABLE FOR DIALYSIS PATIENTS. LACTIC ACID, ARTERIAL, WHOLE [id number] 13:36:00 Test Item Value Reference Range Comments LACTATE BLOOD ARTERIAL (2) (BEAKER) (test 0.7 mmol/L 0.5-2.2 bxtm=3450) Effective 08/06/2015: Units/Reference Range ChangeNew: 0.5-2.2 mmol/L Previous: 5 -20 mg/dLCBC W/PLT COUNT & AUTO [id number] 13:24:00 Test Item Value Reference Range Comments WHITE BLOOD CELL COUNT (BEAKER) (test ehdz=277) 10.5 K/ L 3.5-10.5 RED BLOOD CELL COUNT (BEAKER) (test pzds=663) 2.70 M/ L 3.93-5.22 HEMOGLOBIN (BEAKER) (test cwkm=763) 8.1 GM/DL 11.2-15.7 HEMATOCRIT (BEAKER) (test uvsh=376) 27.0 % 34.1-44.9 MEAN CORPUSCULAR VOLUME (BEAKER) (test dttq=436) 100.0 fL 79.4-94.8 MEAN CORPUSCULAR HEMOGLOBIN (BEAKER) (test 30.0 pg 25.6-32.2 qijy=886) MEAN CORPUSCULAR HEMOGLOBIN CONC (BEAKER) (test 30.0 GM/DL 32.2-35.5 line=675) RED CELL DISTRIBUTION WIDTH (BEAKER) (test 14.9 % 11.7-14.4 myiu=938) PLATELET COUNT (BEAKER) (test qbwt=061) 117 K/CU MM 150-450 MEAN PLATELET VOLUME (BEAKER) (test thtz=910) 10.9 fL 9.4-12.3 NUCLEATED RED BLOOD CELLS (BEAKER) (test 0 /100 WBC 0-0 ywsf=751) NEUTROPHILS RELATIVE PERCENT (BEAKER) (test 78 % dvri=066) LYMPHOCYTES RELATIVE PERCENT (BEAKER) (test 10 % zibw=522) MONOCYTES RELATIVE PERCENT (BEAKER) (test 10 % uybe=867) EOSINOPHILS RELATIVE PERCENT (BEAKER) (test 1 % fctj=341) BASOPHILS RELATIVE PERCENT (BEAKER) (test 0 % mbhk=025) NEUTROPHILS ABSOLUTE COUNT (BEAKER) (test 8.20 K/ L 1.56-6.13 nyls=136) LYMPHOCYTES ABSOLUTE COUNT (BEAKER) (test 1.00 K/ L 1.18-3.74 sjat=515) MONOCYTES ABSOLUTE COUNT (BEAKER) (test 1.06 K/ L 0.24-0.36 owxo=917) EOSINOPHILS ABSOLUTE COUNT (BEAKER) (test 0.09 K/ L 0.04-0.36 pnpv=743) BASOPHILS ABSOLUTE COUNT (BEAKER) (test 0.04 K/ L 0.01-0.08 kjap=755) IMMATURE GRANULOCYTES-RELATIVE PERCENT (BEAKER) 1 % 0-1 (test hezz=7530) OXYGEN SATURATION, [id number] 13:08:00 Test Item Value Reference Range Comments O2 SATURATION (MEASURED) (BEAKER) (test ajka=7880) 65.1 % PA catheter tipBLOOD GAS, [id number] 13:08:00 Test Item Value Reference Range Comments PH ARTERIAL (BEAKER) (test ythc=984) 7.42 7.35-7.45 PCO2 ARTERIAL (BEAKER) (test rmsp=381) 42 mmHg 35-45 PO2 ARTERIAL (BEAKER) (test wvtl=869) 239 mmHg 80-90 O2 SATURATION ARTERIAL (BEAKER) (test lrkw=725) 99.6 % 96.0-97.0 HCO3 ARTERIAL (BEAKER) (test ajlg=494) 27 mmol/L 21-29 BASE EXCESS ARTERIAL (BEAKER) (test mnok=223) 2.1 mmol/L -2.0-3.0 PATIENT TEMPERATURE (BEAKER) (test cgjv=5447) 36.6 C FIO2 (BEAKER) (test trnp=3850) 100.0 % GLUCOSE-STAT [id number] 13:08:00 Test Item Value Reference Range Comments GLUCOSE RANDOM (BEAKER) (test dvdl=543) 194 mg/dL 70-110 HGB/HCT (H&H) - STAT [id number] 13:08:00 Test Item Value Reference Range Comments HEMOGLOBIN (BEAKER) (test hbxm=422) 8.8 g/dL 12.0-15.0 HEMATOCRIT (BEAKER) (test yksm=764) 26.0 % 36.0-45.0 CALCIUM, [id number] 13:08:00 Test Item Value Reference Range Comments CALCIUM IONIZED (BEAKER) (test xyfv=385) 1.08 mmol/L 1.12-1.27 PH, BLOOD (BEAKER) (test qvki=3410) 7.41 SODIUM NA-STAT [id number] 13:07:00 Test Item Value Reference Range Comments SODIUM (BEAKER) (test qbsb=238) 140 meq/L 135-148 POTASSIUM-STAT [id number] 13:07:00 Test Item Value Reference Range Comments POTASSIUM (BEAKER) (test yxqx=891) 3.7 meq/L 3.6-5.5 SODIUM NA-STAT [id number] 11:39:00 Test Item Value Reference Range Comments SODIUM (BEAKER) (test lqzx=248) 141 meq/L 135-148 POTASSIUM-STAT [id number] 11:39:00 Test Item Value Reference Range Comments POTASSIUM (BEAKER) (test jvpd=727) 3.6 meq/L 3.6-5.5 BLOOD GAS, [id number] 11:39:00 Test Item Value Reference Range Comments PH ARTERIAL (BEAKER) (test ztmn=518) 7.44 7.35-7.45 PCO2 ARTERIAL (BEAKER) (test lsgl=009) 42 mmHg 35-45 PO2 ARTERIAL (BEAKER) (test amcv=496) 234 mmHg 80-90 O2 SATURATION ARTERIAL (BEAKER) (test ypal=685) 99.6 % 96.0-97.0 HCO3 ARTERIAL (BEAKER) (test pjzt=595) 28 mmol/L 21-29 BASE EXCESS ARTERIAL (BEAKER) (test xdnt=630) 3.4 mmol/L -2.0-3.0 PATIENT TEMPERATURE (BEAKER) (test xykq=8692) 36.8 C FIO2 (BEAKER) (test xtbg=5592) 86.0 % GLUCOSE-STAT [id number] 11:39:00 Test Item Value Reference Range Comments GLUCOSE RANDOM (BEAKER) (test oyyl=369) 194 mg/dL 70-110 HGB/HCT (H&H) - STAT [id number] 11:39:00 Test Item Value Reference Range Comments HEMOGLOBIN (BEAKER) (test ocwh=277) 8.8 g/dL 12.0-15.0 HEMATOCRIT (BEAKER) (test hxct=048) 26.0 % 36.0-45.0 CALCIUM, [id number] 11:39:00 Test Item Value Reference Range Comments CALCIUM IONIZED (BEAKER) (test rfhr=440) 1.06 mmol/L 1.12-1.27 PH, BLOOD (BEAKER) (test ypcp=1650) 7.44 BLOOD GAS, [id number] 10:56:00 Test Item Value Reference Range Comments PH ARTERIAL (BEAKER) (test lxqb=904) 7.43 7.35-7.45 PCO2 ARTERIAL (BEAKER) (test tdhx=749) 46 mmHg 35-45 PO2 ARTERIAL (BEAKER) (test lixb=908) 223 mmHg 80-90 O2 SATURATION ARTERIAL (BEAKER) (test trbl=606) 99.5 % 96.0-97.0 HCO3 ARTERIAL (BEAKER) (test zmbz=080) 30 mmol/L 21-29 BASE EXCESS ARTERIAL (BEAKER) (test jgms=760) 4.6 mmol/L -2.0-3.0 PATIENT TEMPERATURE (BEAKER) (test iylx=5407) 37.0 C FIO2 (BEAKER) (test oaoh=4115) 100.0 % GLUCOSE-STAT [id number] 10:56:00 Test Item Value Reference Range Comments GLUCOSE RANDOM (BEAKER) (test hhsj=519) 190 mg/dL 70-110 HGB/HCT (H&H) - STAT [id number] 10:56:00 Test Item Value Reference Range Comments HEMOGLOBIN (BEAKER) (test aacp=408) 8.7 g/dL 12.0-15.0 HEMATOCRIT (BEAKER) (test anzj=179) 26.0 % 36.0-45.0 SODIUM NA-STAT [id number] 10:55:00 Test Item Value Reference Range Comments SODIUM (BEAKER) (test wrsv=231) 142 meq/L 135-148 POTASSIUM-STAT [id number] 10:55:00 Test Item Value Reference Range Comments POTASSIUM (BEAKER) (test azej=997) 3.5 meq/L 3.6-5.5 [id number] 08:41:00 Test Item Value Reference Range Comments MAGNESIUM (BEAKER) (test pnuf=454) 2.0 mg/dL 1.6-2.6 BLOOD GAS, [id number] 07:57:00 Test Item Value Reference Range Comments PH ARTERIAL (BEAKER) (test fzva=552) 7.48 7.35-7.45 PCO2 ARTERIAL (BEAKER) (test hjyh=441) 37 mmHg 35-45 PO2 ARTERIAL (BEAKER) (test gtcx=012) 71 mmHg 80-90 O2 SATURATION ARTERIAL (BEAKER) (test dhai=841) 94.8 % 96.0-97.0 HCO3 ARTERIAL (BEAKER) (test agoo=188) 27 mmol/L 21-29 BASE EXCESS ARTERIAL (BEAKER) (test cnsm=762) 3.5 mmol/L -2.0-3.0 PATIENT TEMPERATURE (BEAKER) (test rntj=8947) 37.8 C FIO2 (BEAKER) (test dvpi=3425) 32.0 % POCT-GLUCOSE [id number] 07:50:00 Test Item Value Reference Range Comments POC-GLUCOSE METER (BEAKER) 246 mg/dL 70-110 TESTED AT [address] (test asge=4033) [facility] [address] RAD, CHEST, 1 VIEW, NON [id number] 04:54:00Reason for exam:-> impellaShould this be performed at the bedside?->YesFINAL REPORT CLINICAL INDICATION: Support lines. Comparison: 07/23/2017 The cardiomediastinal contours are stable. Central pulmonary vascular prominence and bilateral parenchymalopacities are similar to previous. There is no pneumothorax. Support lines are stable. Signed: Adelso Sorensen Verified Date/Time: 07/24/2017 04:54:08 Reading Location: [address] Reading Room POCT-GLUCOSE [id number] 04:08:00 Test Item Value Reference Range Comments POC-GLUCOSE METER (BEAKER) 137 mg/dL 70-110 TESTED AT [facility] [address] (test gymt=9001) [facility] [address] [id number] 03:02:00 Test Item Value Reference Range Comments PHOSPHORUS (BEAKER) (test hvpy=958) 3.7 mg/dL 2.3-4.7 [id number] 03:02:00 Test Item Value Reference Range Comments MAGNESIUM (BEAKER) (test vzoy=996) 2.3 mg/dL 1.6-2.6 BASIC METABOLIC [id number] 03:02:00 Test Item Value Reference Range Comments SODIUM (BEAKER) (test 145 meq/L 136-145 pxah=207) POTASSIUM (BEAKER) (test 4.0 meq/L 3.5-5.1 kpoc=298) CHLORIDE (BEAKER) (test 106 meq/L 98-107 skoi=060) CO2 (BEAKER) (test 26 meq/L 22-29 ymov=430) BLOOD UREA NITROGEN 26 mg/dL 7-21 (BEAKER) (test gwyy=050) CREATININE (BEAKER) (test 1.47 mg/dL 0.57-1.25 lmof=780) GLUCOSE RANDOM (BEAKER) 141 mg/dL 70-105 (test figq=753) CALCIUM (BEAKER) (test 9.0 mg/dL 8.4-10.2 djfy=768) EGFR (BEAKER) (test 43 mL/min/1.73 sq m ESTIMATED GFR IS NOT dlmd=8127) ACCURATE CREATININE CLEARANCE IN PREDICTING GLOMERULAR FILTRATION RATE. ESTIMATED GFR IS NOT APPLICABLE FOR DIALYSIS PATIENTS. HEPATIC FUNCTION [id number] 03:02:00 Test Item Value Reference Range Comments TOTAL PROTEIN (BEAKER) (test qjvz=659) 6.6 gm/dL 6.0-8.3 ALBUMIN (BEAKER) (test zowk=0325) 3.2 g/dL 3.5-5.0 BILIRUBIN TOTAL (BEAKER) (test wtxt=658) 1.2 mg/dL 0.2-1.2 BILIRUBIN DIRECT (BEAKER) (test rngp=963) 0.6 mg/dL 0.1-0.5 ALKALINE PHOSPHATASE (BEAKER) (test batm=246) 55 U/L 40-150 AST (SGOT) (BEAKER) (test cncj=679) 33 U/L 5-34 ALT (SGPT) (BEAKER) (test wlyj=164) 25 U/L 6-55 LACTATE DEHYDROGENASE (LDH)2017-07-24 03:02:00 Test Item Value Reference Range Comments LACTATE DEHYDROGENASE (BEAKER) (test zgkd=371) 879 U/L 125-220 CBC W/PLT COUNT & AUTO [id number] 02:53:00 Test Item Value Reference Range Comments WHITE BLOOD CELL COUNT (BEAKER) (test qroq=627) 12.6 K/ L 3.5-10.5 RED BLOOD CELL COUNT (BEAKER) (test wcpn=261) 2.93 M/ L 3.93-5.22 HEMOGLOBIN (BEAKER) (test qhng=883) 8.7 GM/DL 11.2-15.7 HEMATOCRIT (BEAKER) (test uggo=877) 28.3 % 34.1-44.9 MEAN CORPUSCULAR VOLUME (BEAKER) (test zgbq=770) 96.6 fL 79.4-94.8 MEAN CORPUSCULAR HEMOGLOBIN (BEAKER) (test 29.7 pg 25.6-32.2 prfq=416) MEAN CORPUSCULAR HEMOGLOBIN CONC (BEAKER) (test 30.7 GM/DL 32.2-35.5 iqfv=028) RED CELL DISTRIBUTION WIDTH (BEAKER) (test 14.7 % 11.7-14.4 fxpt=391) PLATELET COUNT (BEAKER) (test kssu=194) 126 K/CU MM 150-450 MEAN PLATELET VOLUME (BEAKER) (test vrxg=558) 11.0 fL 9.4-12.3 NUCLEATED RED BLOOD CELLS (BEAKER) (test 0 /100 WBC 0-0 oaox=767) NEUTROPHILS RELATIVE PERCENT (BEAKER) (test 78 % rogy=269) LYMPHOCYTES RELATIVE PERCENT (BEAKER) (test 10 % rhox=204) MONOCYTES RELATIVE PERCENT (BEAKER) (test 10 % ofnk=999) EOSINOPHILS RELATIVE PERCENT (BEAKER) (test 1 % jozd=292) BASOPHILS RELATIVE PERCENT (BEAKER) (test 0 % gtjj=082) NEUTROPHILS ABSOLUTE COUNT (BEAKER) (test 9.85 K/ L 1.56-6.13 turu=666) LYMPHOCYTES ABSOLUTE COUNT (BEAKER) (test 1.27 K/ L 1.18-3.74 mtvb=306) MONOCYTES ABSOLUTE COUNT (BEAKER) (test 1.25 K/ L 0.24-0.36 cslz=103) EOSINOPHILS ABSOLUTE COUNT (BEAKER) (test 0.10 K/ L 0.04-0.36 xfai=078) BASOPHILS ABSOLUTE COUNT (BEAKER) (test 0.05 K/ L 0.01-0.08 tkfj=427) IMMATURE GRANULOCYTES-RELATIVE PERCENT (BEAKER) 1 % 0-1 (test matx=1199) [id number] 02:50:00 Test Item Value Reference Range Comments PROTIME (BEAKER) (test vbyc=832) 16.7 seconds 11.7-14.7 INR (BEAKER) (test wfyu=026) 1.4 <=5.9 PARTIAL THROMBOPLASTIN TIME (BEAKER) (test 78.5 seconds 22.5-36.0 ccqi=396) RECOMMENDED COUMADIN/WARFARIN INR THERAPY RANGESSTANDARD DOSE: 2.0 - 3.0 Includes: PROPHYLAXIS forvenous thrombosis, systemic embolization; TREATMENT for venous thrombosis and/or pulmonary embolus.HIGH RISK: Target INR is 2.5-3.5 for patients with mechanical heart valves.BLOOD [id number] 00:00:00 Test Item Value Reference Range Comments CULTURE (BEAKER) (test oaxh=2357) No growth in 5 days BLOOD [id number] 00:00:00 Test Item Value Reference Range Comments CULTURE (BEAKER) (test pgcl=4665) No growth in 5 days [id number] 22:01:00 Test Item Value Reference Range Comments MAGNESIUM (BEAKER) (test yfwi=244) 2.0 mg/dL 1.6-2.6 POCT-GLUCOSE [id number] 19:39:00 Test Item Value Reference Range Comments POC-GLUCOSE METER (BEAKER) 135 mg/dL 70-110 TESTED AT [facility] [address] [facility] (test haaz=5375) [facility] [address] BASIC METABOLIC [id number] 19:08:00 Test Item Value Reference Range Comments SODIUM (BEAKER) (test 145 meq/L 136-145 tooj=248) POTASSIUM (BEAKER) (test 3.9 meq/L 3.5-5.1 jpjy=542) CHLORIDE (BEAKER) (test 106 meq/L 98-107 mvzh=482) CO2 (BEAKER) (test 28 meq/L 22-29 pofk=881) BLOOD UREA NITROGEN 26 mg/dL 7-21 (BEAKER) (test zfpx=267) CREATININE (BEAKER) (test 1.45 mg/dL 0.57-1.25 bfgz=601) GLUCOSE RANDOM (BEAKER) 119 mg/dL 70-105 (test mhfl=495) CALCIUM (BEAKER) (test 9.2 mg/dL 8.4-10.2 rwgh=512) EGFR (BEAKER) (test 43 mL/min/1.73 sq m ESTIMATED GFR IS NOT ialo=0255) ACCURATE CREATININE CLEARANCE IN PREDICTING GLOMERULAR FILTRATION RATE. ESTIMATED GFR IS NOT APPLICABLE FOR DIALYSIS PATIENTS. [id number] 19:06:00 Test Item Value Reference Range Comments PHOSPHORUS (BEAKER) (test sopi=678) 3.7 mg/dL 2.3-4.7 VANCOMYCIN LEVEL, [id number] 16:33:00 Test Item Value Reference Range Comments VANCOMYCIN TROUGH (BEAKER) (test cotm=148) 17.8 ug/mL 10.0-20.0 If vancomycin trough level > 20 mcg/mL, hold next vancomycin dose, and contact MD and pharmacist.VARICELLA ZOSTER ANTIBODY, [id number] 14:47:00 Test Item Value Reference Range Comments VARICELLA ZOSTER IGG (AL) (BEAKER) (test pclh=2204) 2.3 Al VARICELLA ZOSTER RESULT INTERPRETATIONS: <=0.8 Al Nonreactive: Presumed non-immune to VZV 0.9-1.0 Al Equivocal >=1.1 Al Reactive: Presumed immune to VZVCYTOMEGALOVIRUS ANTIBODY, [id number] 14:46:00 Test Item Value Reference Range Comments CYTOMEGALOVIRUS IGG ANTIBODY (BEAKER) (test Negative gnhq=804) CYTOMEGALOVIRUS ANTIBODY, [id number] 14:46:00 Test Item Value Reference Range Comments CYTOMEGALOVIRUS IGM ANTIBODY (BEAKER) (test Negative kmnm=975) EBV-VCA ANTIBODY, [id number] 14:46:00 Test Item Value Reference Range Comments MARIO-CARMEN VCA IGG (BEAKER) (test dpzk=513) Positive EBV-VCA ANTIBODY, [id number] 14:46:00 Test Item Value Reference Range Comments MARIO-CARMEN VCA IGM (BEAKER) (test jsmr=527) Negative HERPES VIRUS ANTIBODY, [id number] 14:45:00 Test Item Value Reference Range Comments HERPES VIRUS IGG (BEAKER) (test fwqn=4198) Negative HSV IgG 1=NEGATIVEHSV IgG 2=NEGATIVETOXOPLASMA GONDII ANTIBODY, [id number] 14 :45:00 Test Item Value Reference Range Comments TOXOPLASMA GONDII IGG (BEAKER) (test ecae=674) Negative [id number] 14:37:00 Test Item Value Reference Range Comments PARTIAL THROMBOPLASTIN TIME (BEAKER) (test 69.5 seconds 22.5-36.0 pvpu=333) OCCULT BLOOD, [id number] 14:34:00 Test Item Value Reference Range Comments FECAL OCCULT BLOOD (BEAKER) (test iqwd=107) Negative Negative POCT-GLUCOSE [id number] 14:20:00 Test Item Value Reference Range Comments POC-GLUCOSE METER (BEAKER) 166 mg/dL 70-110 TESTED AT [address] (test bnzf=2582) [facility] [address] POCT-GLUCOSE [id number] 14:20:00 Test Item Value Reference Range Comments POC-GLUCOSE METER (BEAKER) 82 mg/dL 70-110 TESTED AT [address] (test pycp=6961) [facility] [address] [id number] 13:00:00 Test Item Value Reference Range Comments PHOSPHORUS (BEAKER) (test kzxx=068) 3.2 mg/dL 2.3-4.7 BASIC METABOLIC [id number] 13:00:00 Test Item Value Reference Range Comments SODIUM (BEAKER) (test 143 meq/L 136-145 fbar=757) POTASSIUM (BEAKER) (test 3.8 meq/L 3.5-5.1 ypve=172) CHLORIDE (BEAKER) (test 104 meq/L 98-107 spsg=925) CO2 (BEAKER) (test 29 meq/L 22-29 ndii=687) BLOOD UREA NITROGEN 28 mg/dL 7-21 (BEAKER) (test oueb=554) CREATININE (BEAKER) (test 1.44 mg/dL 0.57-1.25 eieg=863) GLUCOSE RANDOM (BEAKER) 171 mg/dL 70-105 (test kshc=343) CALCIUM (BEAKER) (test 9.1 mg/dL 8.4-10.2 hfvk=283) EGFR (BEAKER) (test 44 mL/min/1.73 sq m ESTIMATED GFR IS NOT alww=2552) ACCURATE CREATININE CLEARANCE IN PREDICTING GLOMERULAR FILTRATION RATE. ESTIMATED GFR IS NOT APPLICABLE FOR DIALYSIS PATIENTS. POCT-GLUCOSE [id number] 12:29:00 Test Item Value Reference Range Comments POC-GLUCOSE METER (BEAKER) 179 mg/dL 70-110 TESTED AT [address] (test btsv=7875) [facility] [address] CREATININE [id number] 11:15:00 Test Item Value Reference Range Comments CREATININE CLEARANCE (BEAKER) 45.8 mL/min 70.0-140.0 (test yive=620) VOLUME, TOTAL (BEAKER) (test 3400 ml xspg=0731) CREATININE URINE (BEAKER) (test 36.8 mg/dL bnoq=167) [id number]-381 (BEAKER) Анна Encarnacion MD (test jojz=2485) (electronic signature) PATIENT HEIGHT (CM) (BEAKER) 165.1 cm (test wpbo=7342) PATIENT WEIGHT (KG) (BEAKER) 84.100 kg (test kmbg=7648) [id number] 09:15:00 Test Item Value Reference Range Comments POTASSIUM (BEAKER) (test mrbi=503) 4.1 meq/L 3.5-5.1 PRN - repeat potassium levels every 1 hour until glucose level is less than 450 mg/[id number] 09:15:00 Test Item Value Reference Range Comments MAGNESIUM (BEAKER) (test wuwb=148) 2.4 mg/dL 1.6-2.6 PRN - repeat potassium levels every 1 hour until glucose level is less than 450 mg/dLPOCT-GLUCOSE [id number] 08:47:00 Test Item Value Reference Range Comments POC-GLUCOSE METER (BEAKER) 155 mg/dL 70-110 TESTED AT [facility] [address] [place] [address] (test ggjd=4461) [facility] [address] POCT-GLUCOSE [id number] 06:12:00 Test Item Value Reference Range Comments POC-GLUCOSE METER (BEAKER) 143 mg/dL 70-110 TESTED AT [address] (test wovr=2065) [facility] [address] POCT-GLUCOSE [id number] 06:12:00 Test Item Value Reference Range Comments POC-GLUCOSE METER (BEAKER) 123 mg/dL 70-110 TESTED AT [address] (test llkb=3577) [facility] [address] RAD, CHEST, 1 VIEW, NON [id number] 05:36:00Reason for exam:->respiratory insufficiencyFINAL REPORT Chest one view. Clinical history: respiratory insufficiency Comparison: Chest radiograph 07/22/2017 Technique: A single frontal view of the chest was obtained. Findings: Cardiomediastinal contours are unchanged. There is a right IJ Hamel-Jagdeep catheter, with tip inthe right pulmonary artery. [...] stent in the mid abdomen. Signed: Alexia Ramirez Verified Date/Time: 07/23/2017 05:36:35 Reading Location: [address] Reading Room CALCIUM, [id number] 05:19:00 Test Item Value Reference Range Comments CALCIUM IONIZED (BEAKER) (test qmio=400) 1.12 mmol/L 1.12-1.27 PH, BLOOD (BEAKER) (test dilf=4809) 7.40 OXYGEN SATURATION, [id number] 05:18:00 Test Item Value Reference Range Comments O2 SATURATION (MEASURED) (BEAKER) (test nyrk=1677) 63.1 % POCT-GLUCOSE [id number] 05:05:00 Test Item Value Reference Range Comments POC-GLUCOSE METER (BEAKER) 131 mg/dL 70-110 TESTED AT [address] (test daar=0580) [place] [address] BLOOD GAS, [id number] 04:58:00 Test Item Value Reference Range Comments PH ARTERIAL (BEAKER) (test ymeq=238) 7.41 7.35-7.45 PCO2 ARTERIAL (BEAKER) (test pinv=661) 51 mmHg 35-45 PO2 ARTERIAL (BEAKER) (test ersb=340) 93 mmHg 80-90 O2 SATURATION ARTERIAL (BEAKER) (test zvxe=218) 96.9 % 96.0-97.0 HCO3 ARTERIAL (BEAKER) (test yazq=178) 31 mmol/L 21-29 BASE EXCESS ARTERIAL (BEAKER) (test vgpj=057) 5.9 mmol/L -2.0-3.0 PATIENT TEMPERATURE (BEAKER) (test aalp=7023) 37.4 C FIO2 (BEAKER) (test olqk=9186) 70.0 % [id number] 03:35:00 Test Item Value Reference Range Comments PARTIAL THROMBOPLASTIN TIME (BEAKER) (test 70.8 seconds 22.5-36.0 cjqr=021) [id number] 03:34:00 Test Item Value Reference Range Comments PHOSPHORUS (BEAKER) (test lpst=646) 3.0 mg/dL 2.3-4.7 [id number] 03:34:00 Test Item Value Reference Range Comments MAGNESIUM (BEAKER) (test uvne=681) 2.1 mg/dL 1.6-2.6 BASIC METABOLIC [id number] 03:34:00 Test Item Value Reference Range Comments SODIUM (BEAKER) (test 144 meq/L 136-145 lwuw=375) POTASSIUM (BEAKER) (test 3.9 meq/L 3.5-5.1 zpzx=962) CHLORIDE (BEAKER) (test 105 meq/L 98-107 bzgl=577) CO2 (BEAKER) (test 29 meq/L 22-29 gsoi=820) BLOOD UREA NITROGEN 29 mg/dL 7-21 (BEAKER) (test aous=695) CREATININE (BEAKER) (test 1.54 mg/dL 0.57-1.25 keca=719) GLUCOSE RANDOM (BEAKER) 119 mg/dL 70-105 (test hofk=457) CALCIUM (BEAKER) (test 9.1 mg/dL 8.4-10.2 cyey=375) EGFR (BEAKER) (test 40 mL/min/1.73 sq m ESTIMATED GFR IS NOT ddcu=3031) ACCURATE CREATININE CLEARANCE IN PREDICTING GLOMERULAR FILTRATION RATE. ESTIMATED GFR IS NOT APPLICABLE FOR DIALYSIS PATIENTS. HEPATIC FUNCTION [id number] 03:34:00 Test Item Value Reference Range Comments TOTAL PROTEIN (BEAKER) (test nssv=706) 6.7 gm/dL 6.0-8.3 ALBUMIN (BEAKER) (test lelj=1543) 3.3 g/dL 3.5-5.0 BILIRUBIN TOTAL (BEAKER) (test sjsp=200) 1.2 mg/dL 0.2-1.2 BILIRUBIN DIRECT (BEAKER) (test bcqu=129) 0.6 mg/dL 0.1-0.5 ALKALINE PHOSPHATASE (BEAKER) (test yzya=372) 51 U/L 40-150 AST (SGOT) (BEAKER) (test rpvx=232) 48 U/L 5-34 ALT (SGPT) (BEAKER) (test fvxp=858) 29 U/L 6-55 LACTATE DEHYDROGENASE (LDH)2017-07-23 03:34:00 Test Item Value Reference Range Comments LACTATE DEHYDROGENASE (BEAKER) (test dbnx=213) 1020 U/L 125-220 CBC W/PLT COUNT & AUTO [id number] 03:25:00 Test Item Value Reference Range Comments WHITE BLOOD CELL COUNT (BEAKER) (test erxe=971) 11.7 K/ L 3.5-10.5 RED BLOOD CELL COUNT (BEAKER) (test qrhn=311) 3.01 M/ L 3.93-5.22 HEMOGLOBIN (BEAKER) (test eiol=245) 9.0 GM/DL 11.2-15.7 HEMATOCRIT (BEAKER) (test htmg=762) 28.9 % 34.1-44.9 MEAN CORPUSCULAR VOLUME (BEAKER) (test dbql=491) 96.0 fL 79.4-94.8 MEAN CORPUSCULAR HEMOGLOBIN (BEAKER) (test 29.9 pg 25.6-32.2 nnsd=370) MEAN CORPUSCULAR HEMOGLOBIN CONC (BEAKER) (test 31.1 GM/DL 32.2-35.5 pmkm=237) RED CELL DISTRIBUTION WIDTH (BEAKER) (test 15.0 % 11.7-14.4 dtdd=659) PLATELET COUNT (BEAKER) (test zxlg=998) 128 K/CU MM 150-450 MEAN PLATELET VOLUME (BEAKER) (test nmuv=854) 11.3 fL 9.4-12.3 NUCLEATED RED BLOOD CELLS (BEAKER) (test 0 /100 WBC 0-0 jdyy=973) NEUTROPHILS RELATIVE PERCENT (BEAKER) (test 78 % afny=427) LYMPHOCYTES RELATIVE PERCENT (BEAKER) (test 11 % afsv=479) MONOCYTES RELATIVE PERCENT (BEAKER) (test 10 % pgsq=443) EOSINOPHILS RELATIVE PERCENT (BEAKER) (test 1 % flhd=647) BASOPHILS RELATIVE PERCENT (BEAKER) (test 0 % kpaf=355) NEUTROPHILS ABSOLUTE COUNT (BEAKER) (test 9.07 K/ L 1.56-6.13 kezu=912) LYMPHOCYTES ABSOLUTE COUNT (BEAKER) (test 1.25 K/ L 1.18-3.74 drlz=903) MONOCYTES ABSOLUTE COUNT (BEAKER) (test 1.12 K/ L 0.24-0.36 vidt=736) EOSINOPHILS ABSOLUTE COUNT (BEAKER) (test 0.12 K/ L 0.04-0.36 swhc=575) BASOPHILS ABSOLUTE COUNT (BEAKER) (test 0.05 K/ L 0.01-0.08 hgsd=860) IMMATURE GRANULOCYTES-RELATIVE PERCENT (BEAKER) 1 % 0-1 (test xjla=4749) POCT-GLUCOSE [id number] 03:09:00 Test Item Value Reference Range Comments POC-GLUCOSE METER (BEAKER) 114 mg/dL 70-110 TESTED AT [address] (test cxba=0813) [place] [id number] POCT-GLUCOSE [id number] 03:09:00 Test Item Value Reference Range Comments POC-GLUCOSE METER (BEAKER) 122 mg/dL 70-110 TESTED AT [address] (test kzvu=1680) [place] [id number] BASIC METABOLIC [id number] 00:32:00 Test Item Value Reference Range Comments SODIUM (BEAKER) (test 144 meq/L 136-145 gnnq=915) POTASSIUM (BEAKER) (test 4.2 meq/L 3.5-5.1 pudh=743) CHLORIDE (BEAKER) (test 105 meq/L 98-107 rvaj=615) CO2 (BEAKER) (test 28 meq/L 22-29 zuae=082) BLOOD UREA NITROGEN 30 mg/dL 7-21 (BEAKER) (test ugty=706) CREATININE (BEAKER) (test 1.56 mg/dL 0.57-1.25 orqi=767) GLUCOSE RANDOM (BEAKER) 131 mg/dL 70-105 (test vsnc=103) CALCIUM (BEAKER) (test 9.0 mg/dL 8.4-10.2 dtzb=314) EGFR (BEAKER) (test 40 mL/min/1.73 sq m ESTIMATED GFR IS NOT phdd=4241) ACCURATE CREATININE CLEARANCE IN PREDICTING GLOMERULAR FILTRATION RATE. ESTIMATED GFR IS NOT APPLICABLE FOR DIALYSIS PATIENTS. [id number] 00:31:00 Test Item Value Reference Range Comments PHOSPHORUS (BEAKER) (test hixo=710) 3.4 mg/dL 2.3-4.7 POCT-GLUCOSE [id number] 00:10:00 Test Item Value Reference Range Comments POC-GLUCOSE METER (BEAKER) 140 mg/dL 70-110 TESTED AT [address] (test zdqn=1920) [place] [id number] POCT-GLUCOSE [id number] 00:08:00 Test Item Value Reference Range Comments POC-GLUCOSE METER (BEAKER) 121 mg/dL 70-110 TESTED AT [address] (test oyyi=7251) [place] [id number] POCT-GLUCOSE [id number] 00:08:00 Test Item Value Reference Range Comments POC-GLUCOSE METER (BEAKER) 112 mg/dL 70-110 TESTED AT [address] (test xyae=2289) [place] [id number] POCT-GLUCOSE [id number] 00:08:00 Test Item Value Reference Range Comments POC-GLUCOSE METER (BEAKER) 84 mg/dL 70-110 TESTED AT [address] (test irfx=4409) [place] [id number] BASIC METABOLIC [id number] 20:36:00 Test Item Value Reference Range Comments SODIUM (BEAKER) (test 145 meq/L 136-145 ipiu=882) POTASSIUM (BEAKER) (test 3.6 meq/L 3.5-5.1 mwhd=949) CHLORIDE (BEAKER) (test 106 meq/L 98-107 jkhy=762) CO2 (BEAKER) (test 31 meq/L 22-29 jpvy=696) BLOOD UREA NITROGEN 32 mg/dL 7-21 (BEAKER) (test wgtz=052) CREATININE (BEAKER) (test 1.56 mg/dL 0.57-1.25 xkxy=265) GLUCOSE RANDOM (BEAKER) 85 mg/dL 70-105 (test xbuj=791) CALCIUM (BEAKER) (test 9.0 mg/dL 8.4-10.2 aksg=115) EGFR (BEAKER) (test 40 mL/min/1.73 sq m ESTIMATED GFR IS NOT kobt=5640) ACCURATE CREATININE CLEARANCE IN PREDICTING GLOMERULAR FILTRATION RATE. ESTIMATED GFR IS NOT APPLICABLE FOR DIALYSIS PATIENTS. [id number] 20:36:00 Test Item Value Reference Range Comments MAGNESIUM (BEAKER) (test zjhk=022) 2.4 mg/dL 1.6-2.6 [id number] 18:26:00 Test Item Value Reference Range Comments PHOSPHORUS (BEAKER) (test xdix=774) 2.4 mg/dL 2.3-4.7 BASIC METABOLIC [id number] 18:26:00 Test Item Value Reference Range Comments SODIUM (BEAKER) (test 144 meq/L 136-145 pajx=998) POTASSIUM (BEAKER) (test 3.9 meq/L 3.5-5.1 yvia=101) CHLORIDE (BEAKER) (test 106 meq/L 98-107 kjgn=736) CO2 (BEAKER) (test 30 meq/L 22-29 zhki=690) BLOOD UREA NITROGEN 32 mg/dL 7-21 (BEAKER) (test dlng=359) CREATININE (BEAKER) (test 1.67 mg/dL 0.57-1.25 benv=942) GLUCOSE RANDOM (BEAKER) 141 mg/dL 70-105 (test yzam=250) CALCIUM (BEAKER) (test 9.1 mg/dL 8.4-10.2 dfpa=586) EGFR (BEAKER) (test 37 mL/min/1.73 sq m ESTIMATED GFR IS NOT qiqp=0646) ACCURATE CREATININE CLEARANCE IN PREDICTING GLOMERULAR FILTRATION RATE. ESTIMATED GFR IS NOT APPLICABLE FOR DIALYSIS PATIENTS. LACTIC ACID, ARTERIAL, WHOLE [id number] 18:22:00 Test Item Value Reference Range Comments LACTATE BLOOD ARTERIAL (2) (BEAKER) (test 1.0 mmol/L 0.5-2.2 pltf=6631) Effective 08/06/2015: Units/Reference Range ChangeNew: 0.5-2.2 mmol/L Previous: 5 -20 mg/dLPOCT-GLUCOSE [id number] 17:56:00 Test Item Value Reference Range Comments POC-GLUCOSE METER (BEAKER) 138 mg/dL 70-110 TESTED AT [address] (test zztw=0978) [place] [id number] 16:19:00 Test Item Value Reference Range Comments POTASSIUM (BEAKER) (test juug=454) 3.8 meq/L 3.5-5.1 PRN - repeat potassium levels every 1 hour until glucose level is less than 450 mg/[id number] 16:06:00 Test Item Value Reference Range Comments PARTIAL THROMBOPLASTIN TIME (BEAKER) (test 71.3 seconds 22.5-36.0 mqkn=011) OXYGEN SATURATION, [id number] 15:58:00 Test Item Value Reference Range Comments O2 SATURATION (MEASURED) (BEAKER) (test nkle=1975) 58.6 % calibrationPOCT-GLUCOSE [id number] 15:51:00 Test Item Value Reference Range Comments POC-GLUCOSE METER (BEAKER) 147 mg/dL 70-110 TESTED AT [address] (test lzpz=2433) [place] [address] RAD, CHEST, 1 VIEW, NON [id number] 14:57:00Reason for exam:->s/p CVC placement Should this be performed at the bedside?->YesFINAL REPORT TECHNIQUE: Frontal chest radiograph dated 07/22/2017. CLINICAL HISTORY: CVC placement COMPARISON STUDY: Chest radiograph performed earlier the same day. IMPRESSION:There has been interval placement of a right-sided Hamel- Jagdeep catheter with the tip in the main pulmonary artery. Impella device is unchanged in appearance. There is left lung base atelectasis. No pleural effusion or pneumothorax. Cardiomediastinal silhouette is normal in size. No pulmonary edema. Bonesare osteopenic. No fracture. Signed: Dawson Noel MDReport Verified Date/Time: 07/22/2017 14:57:48 Reading Location: [facility] Radiology Reading Room PROTEIN ELECTROPHORESIS, [id number] 14:45:00 Test Item Value Reference Range Comments ALBUMIN FRACTION (BEAKER) 3.0 g/dL 3.5-5.5 (test bpvf=139) ALPHA 1 FRACTION (BEAKER) 0.4 g/dL 0.2-0.4 (test bhuz=285) ALPHA 2 FRACTION (BEAKER) 0.5 g/dL 0.5-0.9 (test mxto=590) BETA FRACTION (BEAKER) (test 1.0 g/dL 0.6-1.1 hyxy=579) GAMMA GLOBULIN FRACTION 1.2 g/dL 0.7-1.7 (BEAKER) (test fypq=316) INTERPRETATION-119 (BEAKER) Albumin decreased. Alpha (test fltm=6777) globulin percentages increased. This suggests an acute phase response. [id number] (BEAKER) Анна Encarnacion MD (electronic (test huwq=0136) signature) PROTEIN TOTAL SERUM, SPEP 6.1 gm/dL 6.0-8.3 (BEAKER) (test xlks=0497) POCT-GLUCOSE [id number] 14:34:00 Test Item Value Reference Range Comments POC-GLUCOSE METER (BEAKER) 137 mg/dL 70-110 TESTED AT [facility] [address] [facility] (test wdrg=6457) [facility] [address] ANTI-NUCLEAR ANTIBODY (ROSLYN)2017-07-22 13:24:00 Test Item Value Reference Range Comments ANTI-NUCLEAR ANTIBODY (ROSLYN) (BEAKER) (test Positive Negative dsdy=196) ROSLYN TITER AND [id number] 13:24:00 Test Item Value Reference Range Comments ROSLYN TITER (BEAKER) (test ylba=0283) :640 ROSLYN PATTERN (BEAKER) (test oyfc=6630) Homogeneous [id number] 12:50:00 Test Item Value Reference Range Comments PHOSPHORUS (BEAKER) (test uphp=788) 2.5 mg/dL 2.3-4.7 BASIC METABOLIC [id number] 12:50:00 Test Item Value Reference Range Comments SODIUM (BEAKER) (test 145 meq/L 136-145 pnog=263) POTASSIUM (BEAKER) (test 3.6 meq/L 3.5-5.1 tcav=635) CHLORIDE (BEAKER) (test 107 meq/L 98-107 emxh=564) CO2 (BEAKER) (test 30 meq/L 22-29 yimg=085) BLOOD UREA NITROGEN 37 mg/dL 7-21 (BEAKER) (test ijru=424) CREATININE (BEAKER) (test 1.69 mg/dL 0.57-1.25 sksk=906) GLUCOSE RANDOM (BEAKER) 154 mg/dL 70-105 (test ljsj=030) CALCIUM (BEAKER) (test 8.9 mg/dL 8.4-10.2 fmvg=542) EGFR (BEAKER) (test 36 mL/min/1.73 sq m ESTIMATED GFR IS NOT gfch=3851) ACCURATE CREATININE CLEARANCE IN PREDICTING GLOMERULAR FILTRATION RATE. ESTIMATED GFR IS NOT APPLICABLE FOR DIALYSIS PATIENTS. BLOOD GAS, [id number] 12:36:00 Test Item Value Reference Range Comments PH ARTERIAL (BEAKER) (test mmho=127) 7.48 7.35-7.45 PCO2 ARTERIAL (BEAKER) (test ljao=411) 44 mmHg 35-45 PO2 ARTERIAL (BEAKER) (test yxhj=073) 156 mmHg 80-90 O2 SATURATION ARTERIAL (BEAKER) (test tibu=481) 99.1 % 96.0-97.0 HCO3 ARTERIAL (BEAKER) (test mbgc=126) 32 mmol/L 21-29 BASE EXCESS ARTERIAL (BEAKER) (test mtwc=565) 7.4 mmol/L -2.0-3.0 PATIENT TEMPERATURE (BEAKER) (test lpnv=5181) 37.4 C FIO2 (BEAKER) (test guzh=1156) 80.0 % POCT-GLUCOSE [id number] 12:26:00 Test Item Value Reference Range Comments POC-GLUCOSE METER (BEAKER) 147 mg/dL 70-110 TESTED AT [facility] [address] [facility] (test ugob=1811) [facility] [address] URINE [id number] 11:56:00 Test Item Value Reference Range Comments CULTURE (BEAKER) (test cbdz=9300) No growth POCT-GLUCOSE [id number] 11:11:00 Test Item Value Reference Range Comments POC-GLUCOSE METER (BEAKER) 172 mg/dL 70-110 TESTED AT [address] (test szgu=8549) [facility] [address] POCT-GLUCOSE [id number] 09:54:00 Test Item Value Reference Range Comments POC-GLUCOSE METER (BEAKER) 196 mg/dL 70-110 TESTED AT [address] (test nwin=7120) [facility] [address] LACTIC ACID, ARTERIAL, WHOLE [id number] 09:07:00 Test Item Value Reference Range Comments LACTATE BLOOD ARTERIAL (2) (BEAKER) (test 0.7 mmol/L 0.5-2.2 brju=4731) Effective 08/06/2015: Units/Reference Range ChangeNew: 0.5-2.2 mmol/L Previous: 5 -20 mg/[id number] 09:06:00 Test Item Value Reference Range Comments MAGNESIUM (BEAKER) (test qcvc=914) 2.2 mg/dL 1.6-2.6 POCT-GLUCOSE [id number] 08:39:00 Test Item Value Reference Range Comments POC-GLUCOSE METER (BEAKER) 188 mg/dL 70-110 TESTED AT [address] (test mosf=4372) [facility] [address] POCT-GLUCOSE [id number] 08:37:00 Test Item Value Reference Range Comments POC-GLUCOSE METER (BEAKER) 195 mg/dL 70-110 TESTED AT [address] (test ecwb=2360) [facility] [address] BLOOD GAS, [id number] 06:46:00 Test Item Value Reference Range Comments PH ARTERIAL (BEAKER) (test brbs=248) 7.47 7.35-7.45 PCO2 ARTERIAL (BEAKER) (test hznk=583) 44 mmHg 35-45 PO2 ARTERIAL (BEAKER) (test wvbx=276) 57 mmHg 80-90 O2 SATURATION ARTERIAL (BEAKER) (test msai=540) 91.1 % 96.0-97.0 HCO3 ARTERIAL (BEAKER) (test tysx=571) 32 mmol/L 21-29 BASE EXCESS ARTERIAL (BEAKER) (test opnm=184) 7.1 mmol/L -2.0-3.0 PATIENT TEMPERATURE (BEAKER) (test dcoo=9109) 37.0 C [id number] 06:14:00 Test Item Value Reference Range Comments RPR SCREEN (BEAKER) (test qemi=393) Nonreactive Nonreactive CALCIUM, [id number] 05:52:00 Test Item Value Reference Range Comments CALCIUM IONIZED (BEAKER) (test zrkw=716) 1.13 mmol/L 1.12-1.27 PH, BLOOD (BEAKER) (test biey=6663) 7.46 [id number] 05:42:00 Test Item Value Reference Range Comments PHOSPHORUS (BEAKER) (test ovva=181) 2.2 mg/dL 2.3-4.7 [id number] 05:42:00 Test Item Value Reference Range Comments MAGNESIUM (BEAKER) (test ymcx=046) 2.1 mg/dL 1.6-2.6 HEPATIC FUNCTION [id number] 05:42:00 Test Item Value Reference Range Comments TOTAL PROTEIN (BEAKER) (test hglm=825) 6.2 gm/dL 6.0-8.3 ALBUMIN (BEAKER) (test axwk=2405) 3.1 g/dL 3.5-5.0 BILIRUBIN TOTAL (BEAKER) (test oevz=128) 1.4 mg/dL 0.2-1.2 BILIRUBIN DIRECT (BEAKER) (test czsb=563) 0.7 mg/dL 0.1-0.5 ALKALINE PHOSPHATASE (BEAKER) (test qrbi=237) 49 U/L 40-150 AST (SGOT) (BEAKER) (test riha=738) 74 U/L 5-34 ALT (SGPT) (BEAKER) (test ulmf=710) 37 U/L 6-55 LACTATE DEHYDROGENASE (LDH)2017-07-22 05:42:00 Test Item Value Reference Range Comments LACTATE DEHYDROGENASE (BEAKER) (test uoow=172) 1339 U/L 125-220 [id number] 05:40:00 Test Item Value Reference Range Comments PHOSPHORUS (BEAKER) (test vnzo=555) 2.2 mg/dL 2.3-4.7 BASIC METABOLIC [id number] 05:40:00 Test Item Value Reference Range Comments SODIUM (BEAKER) (test 144 meq/L 136-145 tmjs=653) POTASSIUM (BEAKER) (test 4.0 meq/L 3.5-5.1 ewde=848) CHLORIDE (BEAKER) (test 107 meq/L 98-107 edus=705) CO2 (BEAKER) (test 28 meq/L 22-29 kikb=633) BLOOD UREA NITROGEN 36 mg/dL 7-21 (BEAKER) (test mqzh=694) CREATININE (BEAKER) (test 1.79 mg/dL 0.57-1.25 dljh=903) GLUCOSE RANDOM (BEAKER) 183 mg/dL 70-105 (test fowk=790) CALCIUM (BEAKER) (test 8.9 mg/dL 8.4-10.2 fxcc=775) EGFR (BEAKER) (test 34 mL/min/1.73 sq m ESTIMATED GFR IS NOT bsrh=9974) ACCURATE CREATININE CLEARANCE IN PREDICTING GLOMERULAR FILTRATION RATE. ESTIMATED GFR IS NOT APPLICABLE FOR DIALYSIS PATIENTS. OXYGEN SATURATION, [id number] 05:29:00 Test Item Value Reference Range Comments O2 SATURATION (MEASURED) (BEAKER) (test dmpy=9989) 54.7 % [id number] 05:29:00 Test Item Value Reference Range Comments PARTIAL THROMBOPLASTIN TIME (BEAKER) (test 70.7 seconds 22.5-36.0 vnxl=600) CBC W/PLT COUNT & AUTO [id number] 05:24:00 Test Item Value Reference Range Comments WHITE BLOOD CELL COUNT (BEAKER) (test kaql=261) 13.0 K/ L 3.5-10.5 RED BLOOD CELL COUNT (BEAKER) (test nouw=411) 3.04 M/ L 3.93-5.22 HEMOGLOBIN (BEAKER) (test kski=577) 9.0 GM/DL 11.2-15.7 HEMATOCRIT (BEAKER) (test jtuv=312) 29.0 % 34.1-44.9 MEAN CORPUSCULAR VOLUME (BEAKER) (test aewj=941) 95.4 fL 79.4-94.8 MEAN CORPUSCULAR HEMOGLOBIN (BEAKER) (test 29.6 pg 25.6-32.2 fkvw=102) MEAN CORPUSCULAR HEMOGLOBIN CONC (BEAKER) (test 31.0 GM/DL 32.2-35.5 ndvi=815) RED CELL DISTRIBUTION WIDTH (BEAKER) (test 15.5 % 11.7-14.4 ijmj=224) PLATELET COUNT (BEAKER) (test vwoa=119) 132 K/CU MM 150-450 MEAN PLATELET VOLUME (BEAKER) (test bpii=121) 11.4 fL 9.4-12.3 NUCLEATED RED BLOOD CELLS (BEAKER) (test 0 /100 WBC 0-0 pprl=653) NEUTROPHILS RELATIVE PERCENT (BEAKER) (test 80 % dmie=324) LYMPHOCYTES RELATIVE PERCENT (BEAKER) (test 10 % lmjo=735) MONOCYTES RELATIVE PERCENT (BEAKER) (test 9 % voml=245) EOSINOPHILS RELATIVE PERCENT (BEAKER) (test 0 % wvfr=616) BASOPHILS RELATIVE PERCENT (BEAKER) (test 0 % csri=403) NEUTROPHILS ABSOLUTE COUNT (BEAKER) (test 10.44 K/ L 1.56-6.13 ijrc=465) LYMPHOCYTES ABSOLUTE COUNT (BEAKER) (test 1.29 K/ L 1.18-3.74 xyix=744) MONOCYTES ABSOLUTE COUNT (BEAKER) (test 1.12 K/ L 0.24-0.36 fibu=166) EOSINOPHILS ABSOLUTE COUNT (BEAKER) (test 0.01 K/ L 0.04-0.36 ydah=337) BASOPHILS ABSOLUTE COUNT (BEAKER) (test 0.04 K/ L 0.01-0.08 exwl=416) IMMATURE GRANULOCYTES-RELATIVE PERCENT (BEAKER) 1 % 0-1 (test vjhb=9616) RAD, CHEST, 1 VIEW, NON [id number] 04:45:00Reason for exam:->respiratory insufficiencyFINAL REPORT CLINICAL INDICATION: Respiratory insufficiency Comparison: 07/21/2017 The cardiomediastinal contours are stable. The left hemidiaphragm is slightly elevated. Centralpulmonary vascular congestion and bilateral parenchymal opacities are unchanged. There is no pneumothorax. A femoral Impella device remains in place. Signed: Adelso Sorensen Verified Date/Time:07/22/2017 04:45:12 Reading Location: [address] Reading Room POCT-GLUCOSE [id number] 03:01:00 Test Item Value Reference Range Comments POC-GLUCOSE METER (BEAKER) 115 mg/dL 70-110 TESTED AT [facility] [address] [facility] (test fptf=8170) [facility] [address] POCT-GLUCOSE [id number] 00:14:00 Test Item Value Reference Range Comments POC-GLUCOSE METER (BEAKER) 137 mg/dL 70-110 TESTED AT [facility] [address] [facility] (test rhgj=3532) [facility] [address] [id number] 00:09:00 Test Item Value Reference Range Comments POTASSIUM (BEAKER) (test uwvd=710) 3.8 meq/L 3.5-5.1 PRN - repeat glucose levels every 1 hour or as specified by insulin titration orders until glucose level is less than 450 mg/dLCheck Serum Potassium level 2 hours after oral potassium replacement completed or 30 min after intravenous potassium replacement.[id number] 00:09:00 Test Item Value Reference Range Comments MAGNESIUM (BEAKER) (test vddy=589) 2.5 mg/dL 1.6-2.6 PRN - repeat glucose levels every 1 hour or as specified by insulin titration orders until glucose level is less than 450 mg/dLCheck Serum Potassium level 2 hours after oral potassium replacement completed or 30 min after intravenous potassium replacement.[id number] 00:09:00 Test Item Value Reference Range Comments PHOSPHORUS (BEAKER) (test fpav=365) 1.9 mg/dL 2.3-4.7 PRN - repeat glucose levels every 1 hour or as specified by insulin titration orders until glucose level is less than 450 mg/dLCheck Serum Potassium level 2 hours after oral potassium replacement completed or 30 min after intravenous potassium replacement.[id number] 00:09:00 Test Item Value Reference Range Comments GLUCOSE RANDOM (BEAKER) (test hoto=252) 155 mg/dL 70-105 PRN - repeat glucose levels every 1 hour or as specified by insulin titration orders until glucose level is less than 450 mg/dLCheck Serum Potassium level 2 hours after oral potassium replacement completed or 30 min after intravenous potassium replacement.BASIC METABOLIC [id number] 00:09:00 Test Item Value Reference Range Comments SODIUM (BEAKER) (test 142 meq/L 136-145 didd=462) POTASSIUM (BEAKER) (test 3.8 meq/L 3.5-5.1 juvc=102) CHLORIDE (BEAKER) (test 105 meq/L 98-107 zudm=288) CO2 (BEAKER) (test 30 meq/L 22-29 obyp=400) BLOOD UREA NITROGEN 37 mg/dL 7-21 (BEAKER) (test rghl=105) CREATININE (BEAKER) (test 1.80 mg/dL 0.57-1.25 cikm=236) GLUCOSE RANDOM (BEAKER) 155 mg/dL 70-105 (test wniv=696) CALCIUM (BEAKER) (test 8.8 mg/dL 8.4-10.2 hsfi=839) EGFR (BEAKER) (test 34 mL/min/1.73 sq m ESTIMATED GFR IS NOT yema=9942) ACCURATE CREATININE CLEARANCE IN PREDICTING GLOMERULAR FILTRATION RATE. ESTIMATED GFR IS NOT APPLICABLE FOR DIALYSIS PATIENTS. PRN - repeat glucose levels every 1 hour or as specified by insulin titration orders until glucose level is less than 450 mg/dLCheck Serum Potassium level 2 hours after oral potassium replacement completed or 30 min after intravenous potassium replacement.[id number] 00:06:00 Test Item Value Reference Range Comments PARTIAL THROMBOPLASTIN TIME (BEAKER) (test 62.0 seconds 22.5-36.0 ucyh=452) BLOOD GAS, [id number] 20:39:00 Test Item Value Reference Range Comments PH ARTERIAL (BEAKER) (test jgcs=009) 7.45 7.35-7.45 PCO2 ARTERIAL (BEAKER) (test qvvd=731) 46 mmHg 35-45 PO2 ARTERIAL (BEAKER) (test jpcc=664) 64 mmHg 80-90 O2 SATURATION ARTERIAL (BEAKER) (test jjls=420) 92.0 % 96.0-97.0 HCO3 ARTERIAL (BEAKER) (test waxo=406) 31 mmol/L 21-29 BASE EXCESS ARTERIAL (BEAKER) (test mznr=256) 6.7 mmol/L -2.0-3.0 PATIENT TEMPERATURE (BEAKER) (test xvxc=3347) 38.1 C FIO2 (BEAKER) (test maod=7976) 80.0 % POTASSIUM-STAT [id number] 20:39:00 Test Item Value Reference Range Comments POTASSIUM (BEAKER) (test vpva=057) 3.4 meq/L 3.6-5.5 [id number] 20:16:00 Test Item Value Reference Range Comments FERRITIN (BEAKER) (test udwg=360) 651 ng/mL 5-275 POCT-GLUCOSE [id number] 20:10:00 Test Item Value Reference Range Comments POC-GLUCOSE METER (BEAKER) 180 mg/dL 70-110 TESTED AT [facility] [address] [facility] (test pkpa=3044) [facility] [address] POCT-GLUCOSE [id number] 20:10:00 Test Item Value Reference Range Comments POC-GLUCOSE METER (BEAKER) 197 mg/dL 70-110 TESTED AT [place] [id number] [facility] (test owei=7988) [facility] [address] [id number] 19:54:00 Test Item Value Reference Range Comments PARTIAL THROMBOPLASTIN TIME (BEAKER) (test 62.4 seconds 22.5-36.0 mtim=336) [id number] 19:53:00 Test Item Value Reference Range Comments MAGNESIUM (BEAKER) (test cceb=478) 2.2 mg/dL 1.6-2.6 HEPATITIS A ANTIBODY, [id number] 19:25:00 Test Item Value Reference Range Comments HEPATITIS A IGG ANTIBODY (BEAKER) (test yaff=0321) Reactive Nonreactive GLUCOSE-STAT [id number] 19:24:00 Test Item Value Reference Range Comments GLUCOSE RANDOM (BEAKER) (test jykn=199) 174 mg/dL 70-110 HGB/HCT (H&H) - STAT [id number] 19:24:00 Test Item Value Reference Range Comments HEMOGLOBIN (BEAKER) (test ywcy=176) 10.1 g/dL 12.0-15.0 HEMATOCRIT (BEAKER) (test dror=599) 30.0 % 36.0-45.0 POTASSIUM-STAT [id number] 19:24:00 Test Item Value Reference Range Comments POTASSIUM (BEAKER) (test lclx=962) 3.4 meq/L 3.6-5.5 HEPATITIS B CORE ANTIBODY, [id number] 19:21:00 Test Item Value Reference Range Comments HEPATITIS B CORE TOTAL ANTIBODY (BEAKER) (test Nonreactive Nonreactive lbrw=542) HEPATITIS PANEL, [id number] 19:21:00 Test Item Value Reference Range Comments HEPATITIS A IGM ANTIBODY (BEAKER) (test Nonreactive Nonreactive rqee=046) HEPATITIS B CORE IGM ANTIBODY (BEAKER) (test Nonreactive Nonreactive cpfb=303) HEPATITIS C ANTIBODY (BEAKER) (test jbis=278) Nonreactive Nonreactive HEPATITIS B SURFACE ANTIGEN (2) (BEAKER) (test Nonreactive Nonreactive mvno=7760) HIV-1 ANTIGEN WITH HIV-1/2 [id number] 19:21:00 Test Item Value Reference Range Comments HIV-1 ANTIGEN WITH HIV 1\T\2 ANTIBODY (2) Nonreactive Nonreactive (BEAKER) (test szhm=5487) BASIC METABOLIC [id number] 18:05:00 Test Item Value Reference Range Comments SODIUM (BEAKER) (test 141 meq/L 136-145 srdo=049) POTASSIUM (BEAKER) (test 4.0 meq/L 3.5-5.1 ylmp=368) CHLORIDE (BEAKER) (test 104 meq/L 98-107 immp=317) CO2 (BEAKER) (test 26 meq/L 22-29 rzrf=605) BLOOD UREA NITROGEN 41 mg/dL 7-21 (BEAKER) (test bfpb=895) CREATININE (BEAKER) (test 2.07 mg/dL 0.57-1.25 xznz=654) GLUCOSE RANDOM (BEAKER) 242 mg/dL 70-105 (test kudd=119) CALCIUM (BEAKER) (test 8.9 mg/dL 8.4-10.2 cvgb=237) EGFR (BEAKER) (test 29 mL/min/1.73 sq m ESTIMATED GFR IS NOT dcxr=2747) ACCURATE CREATININE CLEARANCE IN PREDICTING GLOMERULAR FILTRATION RATE. ESTIMATED GFR IS NOT APPLICABLE FOR DIALYSIS PATIENTS. Check Serum Potassium level 2 hours after oral potassium replacement completed or 30 min after intravenous potassium replacement.[id number] 18:02:00 Test Item Value Reference Range Comments POTASSIUM (BEAKER) (test zexd=604) 4.0 meq/L 3.5-5.1 Check Serum Potassium level 2 hours after oral potassium replacement completed or 30 min after intravenous potassium replacement.[id number] 18:02:00 Test Item Value Reference Range Comments MAGNESIUM (BEAKER) (test ousb=029) 2.2 mg/dL 1.6-2.6 Check Serum Potassium level 2 hours after oral potassium replacement completed or 30 min after intravenous potassium replacement.[id number] 18:02:00 Test Item Value Reference Range Comments PHOSPHORUS (BEAKER) (test rkqp=314) 2.1 mg/dL 2.3-4.7 Check Serum Potassium level 2 hours after oral potassium replacement completed or 30 min after intravenous potassium replacement.POCT-GLUCOSE [id number] 17:31:00 Test Item Value Reference Range Comments POC-GLUCOSE METER (BEAKER) 253 mg/dL 70-110 TESTED AT [address] (test qayg=0626) [place] [address] VITAMIN D, [id number] 17:31:00 Test Item Value Reference Range Comments VITAMIN D 25-OH (BEAKER) (test rhmj=6186) 5.8 ng/mL 6.6-49.9 Effective 01/12/2017: Reference Range ChangeNew: 6.6-49.9 ng/mL Previous: 13.0 -47.8 ng/mLRecommended Vitamin D Target Range: 30.0-40.0 ng/mLPOCT-GLUCOSE [id number] 17:31:00 Test Item Value Reference Range Comments POC-GLUCOSE METER (BEAKER) 269 mg/dL 70-110 TESTED AT [address] (test lvtz=1672) [place] [address] [id number] 17:09:00 Test Item Value Reference Range Comments TRANSFERRIN (BEAKER) (test wmft=552) 166 mg/dL 174-382 [id number] 17:09:00 Test Item Value Reference Range Comments PREALBUMIN (BEAKER) (test gpxj=751) 14 mg/dL 14-45 IRON, [id number] 17:09:00 Test Item Value Reference Range Comments IRON (BEAKER) (test vrcb=718) 57 ug/dL 40-160 TROPONIN [id number] 16:59:00 Test Item Value Reference Range Comments TROPONIN I (BEAKER) (test vexj=605) 45.70 ng/mL 0.00-0.03 Troponin I (TnI) levels [...] failure, acidosis, acute neurological disease, and persistent tachyarrhythmia.[id number] 16:49:00 Test Item Value Reference Range Comments CREATININE (BEAKER) (test 2.17 mg/dL 0.57-1.25 lega=386) EGFR (BEAKER) (test 27 mL/min/1.73 sq m ESTIMATED GFR IS NOT rrye=9207) ACCURATE CREATININE CLEARANCE IN PREDICTING GLOMERULAR FILTRATION RATE. ESTIMATED GFR IS NOT APPLICABLE FOR DIALYSIS PATIENTS. URIC [id number] 16:48:00 Test Item Value Reference Range Comments URIC ACID (BEAKER) (test sbsk=535) 8.2 mg/dL 2.6-7.2 LIPID [id number] 16:48:00 Test Item Value Reference Range Comments TRIGLYCERIDES (BEAKER) (test lqou=310) 122 mg/dL CHOLESTEROL (BEAKER) (test fntd=032) 204 mg/dL HDL CHOLESTEROL (BEAKER) (test tahj=880) 85 mg/dL LDL CHOLESTEROL CALCULATED (BEAKER) (test 95 mg/dL wixp=655) Triglyceride Reference Range: Low Risk <150 Borderline 150- 199 High Risk 200-499 Very High Risk >=500Cholesterol Reference Range: Low Risk <200 Borderline 200-239 High Risk > 240HDL Cholesterol Reference Range: Low Risk >=60 High Risk <40LDL Cholesterol Reference Range: Optimal <100 Near Optimal 100-129 Borderline 130-159 High 160-189 Very High >=[id number] 16:48:00 Test Item Value Reference Range Comments AMYLASE (BEAKER) (test kmdm=595) 228 U/L 25-125 GAMMA GLUTAMYL TRANSFERASE (GGT)2017-07-21 16:48:00 Test Item Value Reference Range Comments GAMMA GLUTAMYL TRANSFERASE (BEAKER) (test sewh=235) 52 U/L 9-64 RETICULOCYTE [id number] 16:39:00 Test Item Value Reference Range Comments RETICULOCYTE COUNT PCT (BEAKER) (test oyvr=557) 3.8 % 0.5-1.7 TROPONIN [id number] 13:49:00 Test Item Value Reference Range Comments TROPONIN I (BEAKER) (test fafr=469) 43.19 ng/mL 0.00-0.03 Troponin I (TnI) levels [...] acute neurological disease, and persistent tachyarrhythmia.BASIC METABOLIC [id number] 12:22:00 Test Item Value Reference Range Comments SODIUM (BEAKER) (test 141 meq/L 136-145 wfxi=077) POTASSIUM (BEAKER) (test 3.9 meq/L 3.5-5.1 fszw=228) CHLORIDE (BEAKER) (test 102 meq/L 98-107 iwhp=571) CO2 (BEAKER) (test 28 meq/L 22-29 ptko=654) BLOOD UREA NITROGEN 40 mg/dL 7-21 (BEAKER) (test ahcm=139) CREATININE (BEAKER) (test 2.20 mg/dL 0.57-1.25 xtyg=134) GLUCOSE RANDOM (BEAKER) 238 mg/dL 70-105 (test hstg=326) CALCIUM (BEAKER) (test 8.9 mg/dL 8.4-10.2 ehoq=780) EGFR (BEAKER) (test 27 mL/min/1.73 sq m ESTIMATED GFR IS NOT nhvg=2336) ACCURATE CREATININE CLEARANCE IN PREDICTING GLOMERULAR FILTRATION RATE. ESTIMATED GFR IS NOT APPLICABLE FOR DIALYSIS PATIENTS. [id number] 12:17:00 Test Item Value Reference Range Comments POTASSIUM (BEAKER) (test wmxs=468) 3.9 meq/L 3.5-5.1 [id number] 12:17:00 Test Item Value Reference Range Comments MAGNESIUM (BEAKER) (test eoqm=840) 2.4 mg/dL 1.6-2.6 [id number] 12:17:00 Test Item Value Reference Range Comments PHOSPHORUS (BEAKER) (test mvge=157) 3.7 mg/dL 2.3-4.7 [id number] 12:17:00 Test Item Value Reference Range Comments GLUCOSE RANDOM (BEAKER) (test lugz=550) 238 mg/dL 70-105 [id number] 12:04:00 Test Item Value Reference Range Comments PARTIAL THROMBOPLASTIN TIME (BEAKER) (test 59.3 seconds 22.5-36.0 fnrp=330) SPUTUM CULTURE + GRAM [id number] 11:47:00 Test Item Value Reference Range Comments CULTURE (BEAKER) (test <1+ Normal respiratory pascual eoct=2165) present GRAM STAIN RESULT (BEAKER) 1+ WBCs (test xbsx=0944) GRAM STAIN RESULT (BEAKER) 0-5 epithelial cells (test mtvv=64288) GRAM STAIN RESULT (BEAKER) No organisms seen (test cwdb=82738) HEMOGLOBIN AND [id number] 11:26:00 Test Item Value Reference Range Comments HEMOGLOBIN (BEAKER) (test zmyx=686) 7.9 GM/DL 11.2-15.7 HEMATOCRIT (BEAKER) (test ggpy=779) 26.5 % 34.1-44.9 BLOOD GAS, [id number] 10:43:00 Test Item Value Reference Range Comments PH ARTERIAL (BEAKER) (test hzyc=444) 7.42 7.35-7.45 PCO2 ARTERIAL (BEAKER) (test cswf=075) 44 mmHg 35-45 PO2 ARTERIAL (BEAKER) (test xzuu=790) 51 mmHg 80-90 O2 SATURATION ARTERIAL (BEAKER) (test enad=971) 88.2 % 96.0-97.0 HCO3 ARTERIAL (BEAKER) (test iomh=561) 28 mmol/L 21-29 BASE EXCESS ARTERIAL (BEAKER) (test okmw=392) 3.2 mmol/L -2.0-3.0 PATIENT TEMPERATURE (BEAKER) (test opwk=3869) 36.0 C FIO2 (BEAKER) (test hdqg=5760) 80.0 % URINE [id number] 09:44:00 Test Item Value Reference Range Comments CULTURE (BEAKER) (test rpfh=1668) No growth BASIC METABOLIC [id number] 06:28:00 Test Item Value Reference Range Comments SODIUM (BEAKER) (test 141 meq/L 136-145 vmjm=974) POTASSIUM (BEAKER) (test 4.1 meq/L 3.5-5.1 ibwh=178) CHLORIDE (BEAKER) (test 101 meq/L 98-107 thij=193) CO2 (BEAKER) (test 29 meq/L 22-29 vdhl=099) BLOOD UREA NITROGEN 40 mg/dL 7-21 (BEAKER) (test entf=528) CREATININE (BEAKER) (test 2.46 mg/dL 0.57-1.25 rbgo=439) GLUCOSE RANDOM (BEAKER) 236 mg/dL 70-105 (test bwax=587) CALCIUM (BEAKER) (test 8.6 mg/dL 8.4-10.2 hlmi=677) EGFR (BEAKER) (test 24 mL/min/1.73 sq m ESTIMATED GFR IS NOT rsxe=5398) ACCURATE CREATININE CLEARANCE IN PREDICTING GLOMERULAR FILTRATION RATE. ESTIMATED GFR IS NOT APPLICABLE FOR DIALYSIS PATIENTS. [id number] 06:26:00 Test Item Value Reference Range Comments PHOSPHORUS (BEAKER) (test hkke=758) 4.6 mg/dL 2.3-4.7 POCT-GLUCOSE [id number] 06:05:00 Test Item Value Reference Range Comments POC-GLUCOSE METER (BEAKER) 278 mg/dL 70-110 TESTED AT [address] (test xkst=0552) [place] [id number] POCT-GLUCOSE [id number] 06:05:00 Test Item Value Reference Range Comments POC-GLUCOSE METER (BEAKER) 231 mg/dL 70-110 TESTED AT [address] (test qofs=8827) [place] [id number] POCT-GLUCOSE [id number] 06:05:00 Test Item Value Reference Range Comments POC-GLUCOSE METER (BEAKER) 190 mg/dL 70-110 TESTED AT [address] (test xmlq=9384) [place] [address] [id number] 05:56:00 Test Item Value Reference Range Comments PARTIAL THROMBOPLASTIN TIME (BEAKER) (test 72.5 seconds 22.5-36.0 brrk=855) RAD, CHEST, 1 VIEW, NON [id number] 04:38:00Reason for exam:->respiratory insufficiencyFINAL REPORT CLINICAL INDICATION: Respiratory insufficiency Comparison: 07/20/2017 The cardiomediastinal contours are stable. Central pulmonary vascular prominence and bilateral parenchymal opacities are similar within variation of acquisition technique. There is no pneumothorax. A femoral Impella device is stable in position. Signed: Adelso Sorensen MDReport Verified Date/Time:07/21/2017 04:38:32 Reading Location: [address] Reading Room BASIC METABOLIC [id number] 04:06:00 Test Item Value Reference Range Comments SODIUM (BEAKER) (test 142 meq/L 136-145 iguz=783) POTASSIUM (BEAKER) (test 3.9 meq/L 3.5-5.1 fvlo=361) CHLORIDE (BEAKER) (test 102 meq/L 98-107 rnka=577) CO2 (BEAKER) (test 31 meq/L 22-29 hgtc=739) BLOOD UREA NITROGEN 40 mg/dL 7-21 (BEAKER) (test qxkh=843) CREATININE (BEAKER) (test 2.37 mg/dL 0.57-1.25 obxp=991) GLUCOSE RANDOM (BEAKER) 206 mg/dL 70-105 (test ircl=271) CALCIUM (BEAKER) (test 8.5 mg/dL 8.4-10.2 lsnt=003) EGFR (BEAKER) (test 25 mL/min/1.73 sq m ESTIMATED GFR IS NOT stun=7146) ACCURATE CREATININE CLEARANCE IN PREDICTING GLOMERULAR FILTRATION RATE. ESTIMATED GFR IS NOT APPLICABLE FOR DIALYSIS PATIENTS. BLOOD GAS, [id number] 03:53:00 Test Item Value Reference Range Comments PH ARTERIAL (BEAKER) (test tzlh=535) 7.36 7.35-7.45 PCO2 ARTERIAL (BEAKER) (test rmch=813) 55 mmHg 35-45 PO2 ARTERIAL (BEAKER) (test hewj=730) 94 mmHg 80-90 O2 SATURATION ARTERIAL (BEAKER) (test foph=514) 96.0 % 96.0-97.0 HCO3 ARTERIAL (BEAKER) (test ihsi=440) 30 mmol/L 21-29 BASE EXCESS ARTERIAL (BEAKER) (test spls=030) 4.2 mmol/L -2.0-3.0 PATIENT TEMPERATURE (BEAKER) (test sgwp=4740) 38.8 C FIO2 (BEAKER) (test cavl=0043) 80.0 % CALCIUM, [id number] 03:51:00 Test Item Value Reference Range Comments CALCIUM IONIZED (BEAKER) (test pooq=485) 1.07 mmol/L 1.12-1.27 PH, BLOOD (BEAKER) (test znlh=1392) 7.35 OXYGEN SATURATION, [id number] 03:50:00 Test Item Value Reference Range Comments O2 SATURATION (MEASURED) (BEAKER) (test auwz=7100) 72.6 % [id number] 03:47:00 Test Item Value Reference Range Comments PHOSPHORUS (BEAKER) (test egnc=268) 4.5 mg/dL 2.3-4.7 [id number] 03:47:00 Test Item Value Reference Range Comments MAGNESIUM (BEAKER) (test zqpq=851) 2.1 mg/dL 1.6-2.6 HEPATIC FUNCTION [id number] 03:47:00 Test Item Value Reference Range Comments TOTAL PROTEIN (BEAKER) (test hdrn=333) 6.1 gm/dL 6.0-8.3 ALBUMIN (BEAKER) (test ltkr=0056) 3.1 g/dL 3.5-5.0 BILIRUBIN TOTAL (BEAKER) (test zerv=181) 1.4 mg/dL 0.2-1.2 BILIRUBIN DIRECT (BEAKER) (test cooi=089) 0.6 mg/dL 0.1-0.5 ALKALINE PHOSPHATASE (BEAKER) (test dhfs=590) 45 U/L 40-150 AST (SGOT) (BEAKER) (test hhes=140) 94 U/L 5-34 ALT (SGPT) (BEAKER) (test bodw=240) 48 U/L 6-55 LACTATE DEHYDROGENASE (LDH)2017-07-21 03:47:00 Test Item Value Reference Range Comments LACTATE DEHYDROGENASE (BEAKER) (test cvqu=837) 1470 U/L 125-220 CBC W/PLT COUNT & AUTO [id number] 03:41:00 Test Item Value Reference Range Comments WHITE BLOOD CELL COUNT (BEAKER) (test yzod=803) 14.1 K/ L 3.5-10.5 RED BLOOD CELL COUNT (BEAKER) (test eboa=181) 2.81 M/ L 3.93-5.22 HEMOGLOBIN (BEAKER) (test aavz=839) 8.6 GM/DL 11.2-15.7 HEMATOCRIT (BEAKER) (test njrq=669) 28.2 % 34.1-44.9 MEAN CORPUSCULAR VOLUME (BEAKER) (test mdge=568) 100.4 fL 79.4-94.8 MEAN CORPUSCULAR HEMOGLOBIN (BEAKER) (test 30.6 pg 25.6-32.2 qhva=751) MEAN CORPUSCULAR HEMOGLOBIN CONC (BEAKER) (test 30.5 GM/DL 32.2-35.5 tbjk=548) RED CELL DISTRIBUTION WIDTH (BEAKER) (test 13.1 % 11.7-14.4 fkvy=949) PLATELET COUNT (BEAKER) (test apum=047) 140 K/CU MM 150-450 MEAN PLATELET VOLUME (BEAKER) (test nqmq=408) 11.1 fL 9.4-12.3 NUCLEATED RED BLOOD CELLS (BEAKER) (test 0 /100 WBC 0-0 hgtk=857) NEUTROPHILS RELATIVE PERCENT (BEAKER) (test 86 % pyxw=977) LYMPHOCYTES RELATIVE PERCENT (BEAKER) (test 6 % eeab=942) MONOCYTES RELATIVE PERCENT (BEAKER) (test 8 % ppnj=506) EOSINOPHILS RELATIVE PERCENT (BEAKER) (test 0 % yjww=157) BASOPHILS RELATIVE PERCENT (BEAKER) (test 0 % vpls=491) NEUTROPHILS ABSOLUTE COUNT (BEAKER) (test 12.13 K/ L 1.56-6.13 tpro=976) LYMPHOCYTES ABSOLUTE COUNT (BEAKER) (test 0.81 K/ L 1.18-3.74 zimh=108) MONOCYTES ABSOLUTE COUNT (BEAKER) (test 1.07 K/ L 0.24-0.36 afzy=438) EOSINOPHILS ABSOLUTE COUNT (BEAKER) (test 0.00 K/ L 0.04-0.36 ykry=874) BASOPHILS ABSOLUTE COUNT (BEAKER) (test 0.02 K/ L 0.01-0.08 hbsc=756) IMMATURE GRANULOCYTES-RELATIVE PERCENT (BEAKER) 1 % 0-1 (test hnmc=5324) LACTIC ACID, ARTERIAL, WHOLE [id number] 03:39:00 Test Item Value Reference Range Comments LACTATE BLOOD ARTERIAL (2) (BEAKER) (test 0.9 mmol/L 0.5-2.2 lieq=3631) Effective 08/06/2015: Units/Reference Range ChangeNew: 0.5-2.2 mmol/L Previous: 5 -20 mg/dLTROPONIN [id number] 00:12:00 Test Item Value Reference Range Comments TROPONIN I (BEAKER) (test miog=032) 60.74 ng/mL 0.00-0.03 Troponin I (TnI) levels [...] failure, acidosis, acute neurological disease, and persistent tachyarrhythmia.[id number] 23:42:00 Test Item Value Reference Range Comments PHOSPHORUS (BEAKER) (test gchr=600) 4.9 mg/dL 2.3-4.7 BASIC METABOLIC [id number] 23:42:00 Test Item Value Reference Range Comments SODIUM (BEAKER) (test 141 meq/L 136-145 vmur=235) POTASSIUM (BEAKER) (test 4.2 meq/L 3.5-5.1 djjn=072) CHLORIDE (BEAKER) (test 102 meq/L 98-107 nphe=335) CO2 (BEAKER) (test 29 meq/L 22-29 scwp=752) BLOOD UREA NITROGEN 40 mg/dL 7-21 (BEAKER) (test dngw=557) CREATININE (BEAKER) (test 2.36 mg/dL 0.57-1.25 piav=037) GLUCOSE RANDOM (BEAKER) 200 mg/dL 70-105 (test giid=350) CALCIUM (BEAKER) (test 8.4 mg/dL 8.4-10.2 mpvr=952) EGFR (BEAKER) (test 25 mL/min/1.73 sq m ESTIMATED GFR IS NOT jhta=3290) ACCURATE CREATININE CLEARANCE IN PREDICTING GLOMERULAR FILTRATION RATE. ESTIMATED GFR IS NOT APPLICABLE FOR DIALYSIS PATIENTS. [id number] 23:39:00 Test Item Value Reference Range Comments PARTIAL THROMBOPLASTIN TIME (BEAKER) (test 78.1 seconds 22.5-36.0 tsfg=278) POCT-GLUCOSE [id number] 23:28:00 Test Item Value Reference Range Comments POC-GLUCOSE METER (BEAKER) 250 mg/dL 70-110 TESTED AT [facility] [address] [facility] (test ltyt=1105) [facility] [address] POCT-GLUCOSE [id number] 22:19:00 Test Item Value Reference Range Comments POC-GLUCOSE METER (BEAKER) 202 mg/dL 70-110 TESTED AT [facility] [address] [facility] (test phrm=6006) [facility] [address] HEPATIC FUNCTION [id number] 21:45:00 Test Item Value Reference Range Comments TOTAL PROTEIN (BEAKER) (test xfbd=624) 5.9 gm/dL 6.0-8.3 ALBUMIN (BEAKER) (test dimr=1235) 3.1 g/dL 3.5-5.0 BILIRUBIN TOTAL (BEAKER) (test jlcr=320) 1.0 mg/dL 0.2-1.2 BILIRUBIN DIRECT (BEAKER) (test vxty=487) 0.5 mg/dL 0.1-0.5 ALKALINE PHOSPHATASE (BEAKER) (test krzb=747) 46 U/L 40-150 AST (SGOT) (BEAKER) (test yuym=815) 95 U/L 5-34 ALT (SGPT) (BEAKER) (test cyca=703) 47 U/L 6-55 BASIC METABOLIC [id number] 21:45:00 Test Item Value Reference Range Comments SODIUM (BEAKER) (test 141 meq/L 136-145 nadw=034) POTASSIUM (BEAKER) (test 4.0 meq/L 3.5-5.1 nxqg=370) CHLORIDE (BEAKER) (test 103 meq/L 98-107 axkr=321) CO2 (BEAKER) (test 27 meq/L 22-29 rmoo=006) BLOOD UREA NITROGEN 40 mg/dL 7-21 (BEAKER) (test nwqo=305) CREATININE (BEAKER) (test 2.30 mg/dL 0.57-1.25 cijo=424) GLUCOSE RANDOM (BEAKER) 192 mg/dL 70-105 (test dmcr=653) CALCIUM (BEAKER) (test 8.4 mg/dL 8.4-10.2 utkw=240) EGFR (BEAKER) (test 25 mL/min/1.73 sq m ESTIMATED GFR IS NOT fhdr=7524) ACCURATE CREATININE CLEARANCE IN PREDICTING GLOMERULAR FILTRATION RATE. ESTIMATED GFR IS NOT APPLICABLE FOR DIALYSIS PATIENTS. [id number] 21:38:00 Test Item Value Reference Range Comments MAGNESIUM (BEAKER) (test bprr=394) 2.1 mg/dL 1.6-2.6 LACTIC ACID, ARTERIAL, WHOLE [id number] 21:32:00 Test Item Value Reference Range Comments LACTATE BLOOD ARTERIAL (2) (BEAKER) (test 0.6 mmol/L 0.5-2.2 ecrn=3644) Effective 08/06/2015: Units/Reference Range ChangeNew: 0.5-2.2 mmol/L Previous: 5 -20 mg/dLPOCT-GLUCOSE [id number] 21:21:00 Test Item Value Reference Range Comments POC-GLUCOSE METER (BEAKER) 198 mg/dL 70-110 TESTED AT [address] (test rgyu=1424) [facility] [address] POCT-GLUCOSE [id number] 21:21:00 Test Item Value Reference Range Comments POC-GLUCOSE METER (BEAKER) 155 mg/dL 70-110 TESTED AT [address] (test ujnh=0554) [facility] [address] POCT-GLUCOSE [id number] 21:21:00 Test Item Value Reference Range Comments POC-GLUCOSE METER (BEAKER) 67 mg/dL 70-110 TESTED AT [address] (test smfy=2504) [facility] [address] BLOOD GAS, [id number] 21:16:00 Test Item Value Reference Range Comments PH ARTERIAL (BEAKER) (test ebvp=923) 7.34 7.35-7.45 PCO2 ARTERIAL (BEAKER) (test ptri=906) 56 mmHg 35-45 PO2 ARTERIAL (BEAKER) (test kawi=852) 107 mmHg 80-90 O2 SATURATION ARTERIAL (BEAKER) (test fevl=013) 97.3 % 96.0-97.0 HCO3 ARTERIAL (BEAKER) (test hndd=719) 29 mmol/L 21-29 BASE EXCESS ARTERIAL (BEAKER) (test wfgh=664) 2.7 mmol/L -2.0-3.0 PATIENT TEMPERATURE (BEAKER) (test luhb=7802) 37.8 C FIO2 (BEAKER) (test idgs=3316) 100.0 % GLUCOSE-STAT [id number] 21:16:00 Test Item Value Reference Range Comments GLUCOSE RANDOM (BEAKER) (test czam=243) 188 mg/dL 70-110 HGB/HCT (H&H) - STAT [id number] 21:16:00 Test Item Value Reference Range Comments HEMOGLOBIN (BEAKER) (test rhmz=755) 9.9 g/dL 12.0-15.0 HEMATOCRIT (BEAKER) (test dzhz=801) 29.0 % 36.0-45.0 SODIUM NA-STAT [id number] 21:15:00 Test Item Value Reference Range Comments SODIUM (BEAKER) (test cxvs=257) 140 meq/L 135-148 POTASSIUM-STAT [id number] 21:15:00 Test Item Value Reference Range Comments POTASSIUM (BEAKER) (test sbgm=940) 3.9 meq/L 3.6-5.5 BLOOD GAS, [id number] 19:44:00 Test Item Value Reference Range Comments PH ARTERIAL (BEAKER) (test ffvq=577) 7.34 7.35-7.45 PCO2 ARTERIAL (BEAKER) (test pedg=022) 31 mmHg 35-45 PO2 ARTERIAL (BEAKER) (test fzio=624) 68 mmHg 80-90 O2 SATURATION ARTERIAL (BEAKER) (test bxsl=542) 92.1 % 96.0-97.0 HCO3 ARTERIAL (BEAKER) (test kpjg=847) 16 mmol/L 21-29 BASE EXCESS ARTERIAL (BEAKER) (test vtau=606) -8.7 mmol/L -2.0-3.0 PATIENT TEMPERATURE (BEAKER) (test zspw=3272) 37.7 C FIO2 (BEAKER) (test vnzz=7449) 50.0 % POCT-GLUCOSE [id number] 18:30:00 Test Item Value Reference Range Comments POC-GLUCOSE METER (BEAKER) 90 mg/dL 70-110 TESTED AT [facility] [address] [facility] (test vlmy=8650) [facility] [address] TROPONIN [id number] 18:05:00 Test Item Value Reference Range Comments TROPONIN I (BEAKER) (test gtfi=769) 76.69 ng/mL 0.00-0.03 Troponin I (TnI) levels [...] acute neurological disease, and persistent tachyarrhythmia.BASIC METABOLIC [id number] 17:56:00 Test Item Value Reference Range Comments SODIUM (BEAKER) (test 143 meq/L 136-145 mpcl=021) POTASSIUM (BEAKER) (test 3.8 meq/L 3.5-5.1 wsxx=811) CHLORIDE (BEAKER) (test 104 meq/L 98-107 dyke=547) CO2 (BEAKER) (test 29 meq/L 22-29 cxop=089) BLOOD UREA NITROGEN 37 mg/dL 7-21 (BEAKER) (test vukz=512) CREATININE (BEAKER) (test 2.45 mg/dL 0.57-1.25 biav=280) GLUCOSE RANDOM (BEAKER) 107 mg/dL 70-105 (test phuu=682) CALCIUM (BEAKER) (test 8.6 mg/dL 8.4-10.2 gzpr=270) EGFR (BEAKER) (test 24 mL/min/1.73 sq m ESTIMATED GFR IS NOT ffau=5382) ACCURATE CREATININE CLEARANCE IN PREDICTING GLOMERULAR FILTRATION RATE. ESTIMATED GFR IS NOT APPLICABLE FOR DIALYSIS PATIENTS. [id number] 17:43:00 Test Item Value Reference Range Comments PHOSPHORUS (BEAKER) (test cqjy=438) 4.8 mg/dL 2.3-4.7 [id number] 17:43:00 Test Item Value Reference Range Comments MAGNESIUM (BEAKER) (test fpwc=900) 2.4 mg/dL 1.6-2.6 [id number] 17:34:00 Test Item Value Reference Range Comments PARTIAL THROMBOPLASTIN TIME (BEAKER) (test 101.4 seconds 22.5-36.0 plmk=222) BLOOD GAS, [id number] 17:23:00 Test Item Value Reference Range Comments PH ARTERIAL (BEAKER) (test pgck=749) 7.36 7.35-7.45 PCO2 ARTERIAL (BEAKER) (test uylq=958) 60 mmHg 35-45 PO2 ARTERIAL (BEAKER) (test llso=011) 82 mmHg 80-90 O2 SATURATION ARTERIAL (BEAKER) (test tlmi=245) 95.1 % 96.0-97.0 HCO3 ARTERIAL (BEAKER) (test zrli=955) 33 mmol/L 21-29 BASE EXCESS ARTERIAL (BEAKER) (test vmyh=515) 6.0 mmol/L -2.0-3.0 PATIENT TEMPERATURE (BEAKER) (test amhy=4671) 37.4 C FIO2 (BEAKER) (test llsv=2685) 70.0 % GLUCOSE-STAT [id number] 17:20:00 Test Item Value Reference Range Comments GLUCOSE RANDOM (BEAKER) (test ttmr=904) 106 mg/dL 70-110 POCT-GLUCOSE [id number] 16:32:00 Test Item Value Reference Range Comments POC-GLUCOSE METER (BEAKER) 115 mg/dL 70-110 TESTED AT [address] (test axrv=2533) [place] [id number] VANCOMYCIN LEVEL, [id number] 16:10:00 Test Item Value Reference Range Comments VANCOMYCIN TROUGH (BEAKER) (test sdwb=045) 17.0 ug/mL 10.0-20.0 POCT-GLUCOSE [id number] 15:32:00 Test Item Value Reference Range Comments POC-GLUCOSE METER (BEAKER) 119 mg/dL 70-110 TESTED AT [address] (test mmju=1306) [facility] [address] TROPONIN [id number] 13:14:00 Test Item Value Reference Range Comments TROPONIN I (BEAKER) (test mmrw=414) 81.57 ng/mL 0.00-0.03 Troponin I (TnI) levels [...] acute neurological disease, and persistent tachyarrhythmia.BASIC METABOLIC [id number] 12:49:00 Test Item Value Reference Range Comments SODIUM (BEAKER) (test 140 meq/L 136-145 qffp=668) POTASSIUM (BEAKER) (test 3.6 meq/L 3.5-5.1 Specimen slightly yxaf=117) hemolyzed CHLORIDE (BEAKER) (test 104 meq/L 98-107 yxkp=729) CO2 (BEAKER) (test 27 meq/L 22-29 fjvd=557) BLOOD UREA NITROGEN 37 mg/dL 7-21 (BEAKER) (test jcno=490) CREATININE (BEAKER) (test 2.35 mg/dL 0.57-1.25 Specimen slightly tafq=567) hemolyzed GLUCOSE RANDOM (BEAKER) 192 mg/dL 70-105 (test bxjq=205) CALCIUM (BEAKER) (test 8.1 mg/dL 8.4-10.2 pdji=473) EGFR (BEAKER) (test 25 mL/min/1.73 sq m ESTIMATED GFR IS NOT ydwa=3815) ACCURATE CREATININE CLEARANCE IN PREDICTING GLOMERULAR FILTRATION RATE. ESTIMATED GFR IS NOT APPLICABLE FOR DIALYSIS PATIENTS. [id number] 12:46:00 Test Item Value Reference Range Comments MAGNESIUM (BEAKER) (test 2.2 mg/dL 1.6-2.6 Specimen slightly hemolyzed qgyc=595) [id number] 12:46:00 Test Item Value Reference Range Comments PHOSPHORUS (BEAKER) (test 4.6 mg/dL 2.3-4.7 Specimen slightly hemolyzed okvy=481) POCT-GLUCOSE [id number] 12:16:00 Test Item Value Reference Range Comments POC-GLUCOSE METER (BEAKER) 210 mg/dL 70-110 TESTED AT [address] (test dtyg=5638) [facility] [address] POCT-GLUCOSE [id number] 12:16:00 Test Item Value Reference Range Comments POC-GLUCOSE METER (BEAKER) 247 mg/dL 70-110 TESTED AT [address] (test czub=5518) [facility] [address] POCT-GLUCOSE [id number] 12:16:00 Test Item Value Reference Range Comments POC-GLUCOSE METER (BEAKER) 174 mg/dL 70-110 TESTED AT [address] (test xoio=2337) [facility] [address] BLOOD GAS, [id number] 12:14:00 Test Item Value Reference Range Comments PH ARTERIAL (BEAKER) (test qrfo=702) 7.36 7.35-7.45 PCO2 ARTERIAL (BEAKER) (test sare=356) 56 mmHg 35-45 PO2 ARTERIAL (BEAKER) (test bllu=320) 65 mmHg 80-90 O2 SATURATION ARTERIAL (BEAKER) (test erud=096) 90.4 % 96.0-97.0 HCO3 ARTERIAL (BEAKER) (test prhp=974) 31 mmol/L 21-29 BASE EXCESS ARTERIAL (BEAKER) (test vdaz=642) 4.8 mmol/L -2.0-3.0 PATIENT TEMPERATURE (BEAKER) (test ynxm=4120) 38.0 C FIO2 (BEAKER) (test ogvj=3902) 60.0 % [id number] 10:58:00 Test Item Value Reference Range Comments PARTIAL THROMBOPLASTIN TIME (BEAKER) (test 99.0 seconds 22.5-36.0 oljk=168) RAD, CHEST, 1 VIEW, NON [id number] 08:30:00Reason for exam:->r/o pleural effusionShould this be [...] No pneumothorax is seen. Signed: Yoshi Martinez [facility] [facility] Verified Date/Time: 07/20/2017 08:30:52 Reading Location: [facility] Radiology ReadingRoom BLOOD GAS, [id number] 06 :37:00 Test Item Value Reference Range Comments PH ARTERIAL (BEAKER) (test sepp=065) 7.38 7.35-7.45 PCO2 ARTERIAL (BEAKER) (test gvyo=041) 50 mmHg 35-45 PO2 ARTERIAL (BEAKER) (test oify=286) 97 mmHg 80-90 O2 SATURATION ARTERIAL (BEAKER) (test fxvz=759) 96.9 % 96.0-97.0 HCO3 ARTERIAL (BEAKER) (test dksx=838) 28 mmol/L 21-29 BASE EXCESS ARTERIAL (BEAKER) (test cmbh=586) 2.7 mmol/L -2.0-3.0 PATIENT TEMPERATURE (BEAKER) (test iakt=7376) 37.8 C FIO2 (BEAKER) (test oqwn=1236) 40.0 % POCT-GLUCOSE [id number] 06:15:00 Test Item Value Reference Range Comments POC-GLUCOSE METER (BEAKER) 114 mg/dL 70-110 TESTED AT [address] (test hajl=3779) [facility] [address] POCT-GLUCOSE [id number] 06:15:00 Test Item Value Reference Range Comments POC-GLUCOSE METER (BEAKER) 140 mg/dL 70-110 TESTED AT [address] (test ymht=6530) [facility] [address] POCT-GLUCOSE [id number] 05:23:00 Test Item Value Reference Range Comments POC-GLUCOSE METER (BEAKER) 77 mg/dL 70-110 TESTED AT [address] (test plgz=7785) [facility] [address] CALCIUM, [id number] 04:34:00 Test Item Value Reference Range Comments CALCIUM IONIZED (BEAKER) (test ijva=991) 1.14 mmol/L 1.12-1.27 PH, BLOOD (BEAKER) (test wrze=9157) 7.34 BLOOD GAS, [id number] 04:32:00 Test Item Value Reference Range Comments PH ARTERIAL (BEAKER) (test wwuo=988) 7.32 7.35-7.45 PCO2 ARTERIAL (BEAKER) (test ykvp=934) 60 mmHg 35-45 PO2 ARTERIAL (BEAKER) (test pnot=949) 92 mmHg 80-90 O2 SATURATION ARTERIAL (BEAKER) (test qjpb=420) 95.9 % 96.0-97.0 HCO3 ARTERIAL (BEAKER) (test qkso=097) 30 mmol/L 21-29 BASE EXCESS ARTERIAL (BEAKER) (test scgf=608) 3.2 mmol/L -2.0-3.0 PATIENT TEMPERATURE (BEAKER) (test wlsj=1186) 37.8 C FIO2 (BEAKER) (test sjbp=8558) 40.0 % COMPREHENSIVE METABOLIC [id number] 04:24:00 Test Item Value Reference Range Comments TOTAL PROTEIN (BEAKER) 6.5 gm/dL 6.0-8.3 (test uzuu=298) ALBUMIN (BEAKER) (test 3.4 g/dL 3.5-5.0 vvxf=2084) ALKALINE PHOSPHATASE 47 U/L 40-150 (BEAKER) (test eagg=759) BILIRUBIN TOTAL (BEAKER) 0.8 mg/dL 0.2-1.2 (test dzzh=332) SODIUM (BEAKER) (test 142 meq/L 136-145 gilg=159) POTASSIUM (BEAKER) (test 3.7 meq/L 3.5-5.1 yyhg=771) CHLORIDE (BEAKER) (test 103 meq/L 98-107 iqkv=088) CO2 (BEAKER) (test 29 meq/L 22-29 eqol=550) BLOOD UREA NITROGEN 34 mg/dL 7-21 (BEAKER) (test iufg=546) CREATININE (BEAKER) (test 2.44 mg/dL 0.57-1.25 mrtj=667) GLUCOSE RANDOM (BEAKER) 128 mg/dL 70-105 (test laal=874) CALCIUM (BEAKER) (test 8.7 mg/dL 8.4-10.2 xixr=305) AST (SGOT) (BEAKER) (test 158 U/L 5-34 woab=437) ALT (SGPT) (BEAKER) (test 63 U/L 6-55 klxe=978) EGFR (BEAKER) (test 24 mL/min/1.73 sq m ESTIMATED GFR IS NOT wjuq=0635) ACCURATE CREATININE CLEARANCE IN PREDICTING GLOMERULAR FILTRATION RATE. ESTIMATED GFR IS NOT APPLICABLE FOR DIALYSIS PATIENTS. BASIC METABOLIC [id number] 04:24:00 Test Item Value Reference Range Comments SODIUM (BEAKER) (test 142 meq/L 136-145 ogin=615) POTASSIUM (BEAKER) (test 3.7 meq/L 3.5-5.1 zbpc=682) CHLORIDE (BEAKER) (test 103 meq/L 98-107 oqpw=253) CO2 (BEAKER) (test 29 meq/L 22-29 ntdw=979) BLOOD UREA NITROGEN 34 mg/dL 7-21 (BEAKER) (test byse=297) CREATININE (BEAKER) (test 2.44 mg/dL 0.57-1.25 nnhj=491) GLUCOSE RANDOM (BEAKER) 128 mg/dL 70-105 (test xxen=455) CALCIUM (BEAKER) (test 8.7 mg/dL 8.4-10.2 kfde=255) EGFR (BEAKER) (test 24 mL/min/1.73 sq m ESTIMATED GFR IS NOT sqzr=2069) ACCURATE CREATININE CLEARANCE IN PREDICTING GLOMERULAR FILTRATION RATE. ESTIMATED GFR IS NOT APPLICABLE FOR DIALYSIS PATIENTS. [id number] 04:22:00 Test Item Value Reference Range Comments PHOSPHORUS (BEAKER) (test nsbd=955) 5.2 mg/dL 2.3-4.7 [id number] 04:22:00 Test Item Value Reference Range Comments MAGNESIUM (BEAKER) (test eqwj=516) 2.4 mg/dL 1.6-2.6 HEPATIC FUNCTION [id number] 04:22:00 Test Item Value Reference Range Comments TOTAL PROTEIN (BEAKER) (test sgwu=547) 6.5 gm/dL 6.0-8.3 ALBUMIN (BEAKER) (test ofpu=7660) 3.4 g/dL 3.5-5.0 BILIRUBIN TOTAL (BEAKER) (test qkgn=454) 0.8 mg/dL 0.2-1.2 BILIRUBIN DIRECT (BEAKER) (test swuv=262) 0.4 mg/dL 0.1-0.5 ALKALINE PHOSPHATASE (BEAKER) (test murr=846) 47 U/L 40-150 AST (SGOT) (BEAKER) (test vqax=681) 158 U/L 5-34 ALT (SGPT) (BEAKER) (test jacd=560) 63 U/L 6-55 [id number] 04:12:00 Test Item Value Reference Range Comments PARTIAL THROMBOPLASTIN TIME (BEAKER) (test 36.8 seconds 22.5-36.0 xbfx=050) Prior to initiating heparinPOCT-GLUCOSE [id number] 04:05:00 Test Item Value Reference Range Comments POC-GLUCOSE METER (BEAKER) 134 mg/dL 70-110 TESTED AT [facility] [address] [facility] (test yjnz=7757) [facility] [address] POCT-GLUCOSE [id number] 04:05:00 Test Item Value Reference Range Comments POC-GLUCOSE METER (BEAKER) 122 mg/dL 70-110 TESTED AT [facility] [address] [facility] (test cxno=7444) [facility] [address] POCT-GLUCOSE [id number] 04:05:00 Test Item Value Reference Range Comments POC-GLUCOSE METER (BEAKER) 201 mg/dL 70-110 TESTED AT [facility] [address] [facility] (test ekfm=2864) [facility] [address] CBC W/PLT COUNT & AUTO [id number] 04:02:00 Test Item Value Reference Range Comments WHITE BLOOD CELL COUNT (BEAKER) (test ibyu=289) 13.6 K/ L 3.5-10.5 RED BLOOD CELL COUNT (BEAKER) (test ewvz=960) 3.18 M/ L 3.93-5.22 HEMOGLOBIN (BEAKER) (test qppe=566) 9.7 GM/DL 11.2-15.7 HEMATOCRIT (BEAKER) (test siit=914) 31.0 % 34.1-44.9 MEAN CORPUSCULAR VOLUME (BEAKER) (test rllw=823) 97.5 fL 79.4-94.8 MEAN CORPUSCULAR HEMOGLOBIN (BEAKER) (test 30.5 pg 25.6-32.2 viwu=314) MEAN CORPUSCULAR HEMOGLOBIN CONC (BEAKER) (test 31.3 GM/DL 32.2-35.5 hkwa=816) RED CELL DISTRIBUTION WIDTH (BEAKER) (test 13.3 % 11.7-14.4 etob=029) PLATELET COUNT (BEAKER) (test kiql=898) 167 K/CU MM 150-450 MEAN PLATELET VOLUME (BEAKER) (test esvm=492) 11.0 fL 9.4-12.3 NUCLEATED RED BLOOD CELLS (BEAKER) (test 0 /100 WBC 0-0 jpvw=971) NEUTROPHILS RELATIVE PERCENT (BEAKER) (test 85 % alzf=043) LYMPHOCYTES RELATIVE PERCENT (BEAKER) (test 7 % sowq=202) MONOCYTES RELATIVE PERCENT (BEAKER) (test 7 % bmzy=366) EOSINOPHILS RELATIVE PERCENT (BEAKER) (test 0 % vbpy=117) BASOPHILS RELATIVE PERCENT (BEAKER) (test 0 % xacw=434) NEUTROPHILS ABSOLUTE COUNT (BEAKER) (test 11.61 K/ L 1.56-6.13 tejv=501) LYMPHOCYTES ABSOLUTE COUNT (BEAKER) (test 0.98 K/ L 1.18-3.74 efmr=768) MONOCYTES ABSOLUTE COUNT (BEAKER) (test 0.92 K/ L 0.24-0.36 chpt=673) EOSINOPHILS ABSOLUTE COUNT (BEAKER) (test 0.00 K/ L 0.04-0.36 dzqf=686) BASOPHILS ABSOLUTE COUNT (BEAKER) (test 0.02 K/ L 0.01-0.08 kmii=741) IMMATURE GRANULOCYTES-RELATIVE PERCENT (BEAKER) 1 % 0-1 (test kgpe=8843) [id number] 02:01:00 Test Item Value Reference Range Comments PARTIAL THROMBOPLASTIN TIME (BEAKER) (test 32.5 seconds 22.5-36.0 qazr=322) BLOOD GAS, [id number] 01:09:00 Test Item Value Reference Range Comments PH ARTERIAL (BEAKER) (test pzhx=782) 7.35 7.35-7.45 PCO2 ARTERIAL (BEAKER) (test fqrm=322) 50 mmHg 35-45 PO2 ARTERIAL (BEAKER) (test iomv=030) 86 mmHg 80-90 O2 SATURATION ARTERIAL (BEAKER) (test hsnq=837) 95.3 % 96.0-97.0 HCO3 ARTERIAL (BEAKER) (test onhp=262) 27 mmol/L 21-29 BASE EXCESS ARTERIAL (BEAKER) (test fbcl=696) 1.0 mmol/L -2.0-3.0 PATIENT TEMPERATURE (BEAKER) (test vafe=7252) 38.2 C FIO2 (BEAKER) (test wzze=3473) 40.0 % POCT-GLUCOSE [id number] 01:04:00 Test Item Value Reference Range Comments POC-GLUCOSE METER (BEAKER) 199 mg/dL 70-110 TESTED AT [facility] [address] [facility] (test ppoy=3017) [facility] [address] [id number] 00:14:00 Test Item Value Reference Range Comments MAGNESIUM (BEAKER) (test 2.3 mg/dL 1.6-2.6 Specimen slightly hemolyzed ksml=733) [id number] 00:14:00 Test Item Value Reference Range Comments POTASSIUM (BEAKER) (test 3.8 meq/L 3.5-5.1 Specimen slightly hemolyzed kadx=361) CALCIUM, [id number] 00:11:00 Test Item Value Reference Range Comments CALCIUM IONIZED (BEAKER) (test uean=820) 1.06 mmol/L 1.12-1.27 PH, BLOOD (BEAKER) (test iouh=8035) 7.35 BLOOD GAS, [id number] 00:11:00 Test Item Value Reference Range Comments PH ARTERIAL (BEAKER) (test iefs=846) 7.33 7.35-7.45 PCO2 ARTERIAL (BEAKER) (test jymn=396) 53 mmHg 35-45 PO2 ARTERIAL (BEAKER) (test clhz=541) 58 mmHg 80-90 O2 SATURATION ARTERIAL (BEAKER) (test whok=838) 86.1 % 96.0-97.0 HCO3 ARTERIAL (BEAKER) (test rpqi=695) 27 mmol/L 21-29 BASE EXCESS ARTERIAL (BEAKER) (test dtlr=156) 0.9 mmol/L -2.0-3.0 PATIENT TEMPERATURE (BEAKER) (test vxog=3749) 38.0 C FIO2 (BEAKER) (test xchb=4816) 40.0 % Post extubation ABGPOCT-GLUCOSE [id number] 23:58:00 Test Item Value Reference Range Comments POC-GLUCOSE METER (BEAKER) 202 mg/dL 70-110 TESTED AT [address] (test qyzn=0211) [place] [id number] POCT-GLUCOSE [id number] 23:58:00 Test Item Value Reference Range Comments POC-GLUCOSE METER (BEAKER) 86 mg/dL 70-110 TESTED AT [address] (test hnpb=5237) [place] [id number] BASIC METABOLIC [id number] 22:18:00 Test Item Value Reference Range Comments SODIUM (BEAKER) (test 141 meq/L 136-145 uhlj=097) POTASSIUM (BEAKER) (test 3.6 meq/L 3.5-5.1 Specimen slightly qsrj=016) hemolyzed CHLORIDE (BEAKER) (test 105 meq/L 98-107 orsr=692) CO2 (BEAKER) (test 26 meq/L 22-29 lmfa=527) BLOOD UREA NITROGEN 31 mg/dL 7-21 (BEAKER) (test prpa=150) CREATININE (BEAKER) (test 2.09 mg/dL 0.57-1.25 Specimen slightly nsrz=001) hemolyzed GLUCOSE RANDOM (BEAKER) 81 mg/dL 70-105 (test cysl=079) CALCIUM (BEAKER) (test 8.3 mg/dL 8.4-10.2 bwio=354) EGFR (BEAKER) (test 28 mL/min/1.73 sq m ESTIMATED GFR IS NOT pokh=5976) ACCURATE CREATININE CLEARANCE IN PREDICTING GLOMERULAR FILTRATION RATE. ESTIMATED GFR IS NOT APPLICABLE FOR DIALYSIS PATIENTS. [id number] 22:17:00 Test Item Value Reference Range Comments PHOSPHORUS (BEAKER) (test 5.1 mg/dL 2.3-4.7 Specimen slightly hemolyzed errz=270) POCT-GLUCOSE [id number] 20:57:00 Test Item Value Reference Range Comments POC-GLUCOSE METER (BEAKER) 90 mg/dL 70-110 TESTED AT [facility] [address] [facility] (test jrdr=7567) [facility] [address] BLOOD GAS, [id number] 20:52:00 Test Item Value Reference Range Comments PH ARTERIAL (BEAKER) (test oqir=276) 7.35 7.35-7.45 PCO2 ARTERIAL (BEAKER) (test wrup=630) 49 mmHg 35-45 PO2 ARTERIAL (BEAKER) (test dtup=887) 100 mmHg 80-90 O2 SATURATION ARTERIAL (BEAKER) (test sptr=938) 97.0 % 96.0-97.0 HCO3 ARTERIAL (BEAKER) (test mopd=479) 26 mmol/L 21-29 BASE EXCESS ARTERIAL (BEAKER) (test jyvy=579) 0.3 mmol/L -2.0-3.0 PATIENT TEMPERATURE (BEAKER) (test zbfs=8796) 37.7 C FIO2 (BEAKER) (test wbml=9080) 40.0 % [id number] 18:57:00 Test Item Value Reference Range Comments PARTIAL THROMBOPLASTIN TIME (BEAKER) (test 70.7 seconds 22.5-36.0 kkcs=684) BLOOD GAS, [id number] 16:52:00 Test Item Value Reference Range Comments PH ARTERIAL (BEAKER) (test nhsu=391) 7.37 7.35-7.45 PCO2 ARTERIAL (BEAKER) (test uklq=810) 47 mmHg 35-45 PO2 ARTERIAL (BEAKER) (test pvjm=234) 117 mmHg 80-90 O2 SATURATION ARTERIAL (BEAKER) (test ylvc=549) 98.0 % 96.0-97.0 HCO3 ARTERIAL (BEAKER) (test fedt=916) 26 mmol/L 21-29 BASE EXCESS ARTERIAL (BEAKER) (test nyif=432) 0.5 mmol/L -2.0-3.0 PATIENT TEMPERATURE (BEAKER) (test sqoj=3691) 37.7 C FIO2 (BEAKER) (test autx=3724) 60.0 % GLUCOSE-STAT [id number] 16:52:00 Test Item Value Reference Range Comments GLUCOSE RANDOM (BEAKER) (test wjsa=914) 149 mg/dL 70-110 [id number] 16:22:00 Test Item Value Reference Range Comments PARTIAL THROMBOPLASTIN TIME (BEAKER) (test 197.7 seconds 22.5-36.0 jjww=871) PROTHROMBIN [id number] 16:15:00 Test Item Value Reference Range Comments PROTIME (BEAKER) (test aqrc=642) 16.4 seconds 11.7-14.7 INR (BEAKER) (test cfst=749) 1.3 <=5.9 RECOMMENDED COUMADIN/WARFARIN INR THERAPY RANGESSTANDARD DOSE: 2.0 - 3.0 Includes: PROPHYLAXIS forvenous thrombosis, systemic embolization; TREATMENT for venous thrombosis and/or pulmonary embolus.HIGH RISK: Target INR is 2.5-3.5 for patients with mechanical heart valves.[id number] 16:15:00 Test Item Value Reference Range Comments FIBRINOGEN LEVEL (BEAKER) (test hyan=728) 303 mg/dl 225-434 [id number] 16:15:00 Test Item Value Reference Range Comments MAGNESIUM (BEAKER) (test 3.0 mg/dL 1.6-2.6 Specimen moderately hemolyzed diwl=269) [id number] 16:15:00 Test Item Value Reference Range Comments PHOSPHORUS (BEAKER) (test 6.6 mg/dL 2.3-4.7 Specimen moderately hemolyzed mkka=354) BASIC METABOLIC [id number] 16:15:00 Test Item Value Reference Range Comments SODIUM (BEAKER) (test 144 meq/L 136-145 asgm=144) POTASSIUM (BEAKER) (test 4.1 meq/L 3.5-5.1 Specimen moderately kabw=720) hemolyzed CHLORIDE (BEAKER) (test 106 meq/L 98-107 ydfe=544) CO2 (BEAKER) (test 27 meq/L 22-29 hhwg=168) BLOOD UREA NITROGEN 30 mg/dL 7-21 (BEAKER) (test sekl=132) CREATININE (BEAKER) (test 1.99 mg/dL 0.57-1.25 Specimen moderately auho=873) hemolyzed GLUCOSE RANDOM (BEAKER) 165 mg/dL 70-105 (test oyjv=311) CALCIUM (BEAKER) (test 8.6 mg/dL 8.4-10.2 qovt=429) EGFR (BEAKER) (test 30 mL/min/1.73 sq m ESTIMATED GFR IS NOT uqdc=0313) ACCURATE CREATININE CLEARANCE IN PREDICTING GLOMERULAR FILTRATION RATE. ESTIMATED GFR IS NOT APPLICABLE FOR DIALYSIS PATIENTS. CBC (HEMOGRAM ONLY)2017-07-19 16:13:00 Test Item Value Reference Range Comments WHITE BLOOD CELL COUNT (BEAKER) (test lmle=081) 14.5 K/ L 3.5-10.5 RED BLOOD CELL COUNT (BEAKER) (test sjmz=908) 3.55 M/ L 3.93-5.22 HEMOGLOBIN (BEAKER) (test gzvq=374) 10.7 GM/DL 11.2-15.7 HEMATOCRIT (BEAKER) (test zjwl=722) 34.9 % 34.1-44.9 MEAN CORPUSCULAR VOLUME (BEAKER) (test cubr=348) 98.3 fL 79.4-94.8 MEAN CORPUSCULAR HEMOGLOBIN (BEAKER) (test 30.1 pg 25.6-32.2 flyi=369) MEAN CORPUSCULAR HEMOGLOBIN CONC (BEAKER) (test 30.7 GM/DL 32.2-35.5 swsn=652) RED CELL DISTRIBUTION WIDTH (BEAKER) (test 13.3 % 11.7-14.4 rpbg=318) PLATELET COUNT (BEAKER) (test kgks=717) 235 K/CU MM 150-450 MEAN PLATELET VOLUME (BEAKER) (test qvgn=753) 11.0 fL 9.4-12.3 NUCLEATED RED BLOOD CELLS (BEAKER) (test 0 /100 WBC 0-0 kppw=459) LACTIC ACID, ARTERIAL, WHOLE [id number] 16:12:00 Test Item Value Reference Range Comments LACTATE BLOOD ARTERIAL (2) 2.0 mmol/L 0.5-2.2 Specimen slightly hemolyzed (BEAKER) (test ueqr=5023) Effective 08/06/2015: Units/Reference Range ChangeNew: 0.5-2.2 mmol/L Previous: 5 -20 mg/dLCALCIUM, [id number] 15:54:00 Test Item Value Reference Range Comments CALCIUM IONIZED (BEAKER) (test txts=735) 1.14 mmol/L 1.12-1.27 PH, BLOOD (BEAKER) (test oeac=4193) 7.24 SODIUM NA-STAT [id number] 15:54:00 Test Item Value Reference Range Comments SODIUM (BEAKER) (test hobr=743) 143 meq/L 135-148 POTASSIUM-STAT [id number] 15:54:00 Test Item Value Reference Range Comments POTASSIUM (BEAKER) (test utph=183) 3.9 meq/L 3.6-5.5 BLOOD GAS, [id number] 15:54:00 Test Item Value Reference Range Comments PH ARTERIAL (BEAKER) (test zvry=369) 7.26 7.35-7.45 PCO2 ARTERIAL (BEAKER) (test qsuq=009) 69 mmHg 35-45 PO2 ARTERIAL (BEAKER) (test pleh=136) 74 mmHg 80-90 O2 SATURATION ARTERIAL (BEAKER) (test jlmr=843) 93.4 % 96.0-97.0 HCO3 ARTERIAL (BEAKER) (test rigl=319) 31 mmol/L 21-29 BASE EXCESS ARTERIAL (BEAKER) (test clej=903) 2.0 mmol/L -2.0-3.0 PATIENT TEMPERATURE (BEAKER) (test yjyz=6911) 35.6 C FIO2 (BEAKER) (test xfyf=9216) 50.0 % GLUCOSE-STAT [id number] 15:54:00 Test Item Value Reference Range Comments GLUCOSE RANDOM (BEAKER) (test xfop=110) 169 mg/dL 70-110 HGB/HCT (H&H) - STAT [id number] 15:54:00 Test Item Value Reference Range Comments HEMOGLOBIN (DAMASOAKER) (test yxkc=672) 11.7 g/dL 12.0-15.0 HEMATOCRIT (BEAKER) (test dydj=399) 34.0 % 36.0-45.0 RAD, CHEST, 1 VIEW, NON [id number] 15:49:00Reason for exam:->sp PCI/ intubatedFINAL REPORT TECHNIQUE: [...] MDReport Verified Date/Time: 07/19/2017 15:49:37 Reading Location: [facility] RadiologyReading Room [id number] 14:13:00 Test Item Value Reference Range Comments ACTIVATED CLOTTING TIME 131 sec TESTED AT [facility] [address] (test ojax=615) [facility] [address] TROPONIN [id number] 12:32:00 Test Item Value Reference Range Comments TROPONIN I (DAMASOAKER) (test iviq=375) 119.79 ng/mL 0.00-0.03 Troponin I (TnI) levels [...] and persistent tachyarrhythmia.CREATINE KINASE (CK), TOTAL AND [id number] 12:26:00 Test Item Value Reference Range Comments CREATINE KINASE TOTAL (BEAKER) (test kuki=665) 2405 U/L 29-200 CREATINE KINASE-MB (BEAKER) (test utjh=199) 65.6 ng/mL 0.0-6.6 CREATINE KINASE-MB INDEX (BEAKER) (test rfon=193) 2.7 % CK-MB Reference Range:<6.7 Normal6.7-10.0 Borderline>10.0 AbnormalPOCT-GLUCOSE [id number] 12:20:00 Test Item Value Reference Range Comments POC-GLUCOSE METER (BEAKER) 183 mg/dL 70-110 TESTED AT [facility] [address] [facility] (test ybse=6711) [facility] [address] [id number] 12:03:00 Test Item Value Reference Range Comments MAGNESIUM (BEAKER) (test tuwn=665) 2.8 mg/dL 1.6-2.6 [id number] 12:03:00 Test Item Value Reference Range Comments PHOSPHORUS (BEAKER) (test vgpq=375) 5.3 mg/dL 2.3-4.7 BASIC METABOLIC [id number] 12:03:00 Test Item Value Reference Range Comments SODIUM (BEAKER) (test 143 meq/L 136-145 pnqq=550) POTASSIUM (BEAKER) (test 3.8 meq/L 3.5-5.1 vevz=963) CHLORIDE (BEAKER) (test 106 meq/L 98-107 csuf=813) CO2 (BEAKER) (test 27 meq/L 22-29 kvtu=419) BLOOD UREA NITROGEN 29 mg/dL 7-21 (BEAKER) (test ibop=475) CREATININE (BEAKER) (test 1.92 mg/dL 0.57-1.25 eyik=385) GLUCOSE RANDOM (BEAKER) 188 mg/dL 70-105 (test jqgj=499) CALCIUM (BEAKER) (test 8.7 mg/dL 8.4-10.2 lygz=873) EGFR (BEAKER) (test 31 mL/min/1.73 sq m ESTIMATED GFR IS NOT afbz=8410) ACCURATE CREATININE CLEARANCE IN PREDICTING GLOMERULAR FILTRATION RATE. ESTIMATED GFR IS NOT APPLICABLE FOR DIALYSIS PATIENTS. POCT-GLUCOSE [id number] 11:19:00 Test Item Value Reference Range Comments POC-GLUCOSE METER (BEAKER) 190 mg/dL 70-110 TESTED AT [facility] [address] [facility] (test odmz=6713) [facility] [address] POCT-GLUCOSE [id number] 10:12:00 Test Item Value Reference Range Comments POC-GLUCOSE METER (BEAKER) 197 mg/dL 70-110 TESTED AT [address] (test uzgj=8553) [place] [address] POCT-GLUCOSE [id number] 09:21:00 Test Item Value Reference Range Comments POC-GLUCOSE METER (BEAKER) 221 mg/dL 70-110 TESTED AT [address] (test jlrv=9783) [place] [address] LACTIC ACID, ARTERIAL, WHOLE [id number] 09:19:00 Test Item Value Reference Range Comments LACTATE BLOOD ARTERIAL (2) (BEAKER) (test 2.4 mmol/L 0.5-2.2 opkb=5962) Effective 08/06/2015: Units/Reference Range ChangeNew: 0.5-2.2 mmol/L Previous: 5 -20 mg/dLPROTHROMBIN [id number] 08:44:00 Test Item Value Reference Range Comments PROTIME (BEAKER) (test fiiu=528) 14.4 seconds 11.7-14.7 INR (BEAKER) (test oqyj=151) 1.1 <=5.9 RECOMMENDED COUMADIN/WARFARIN INR THERAPY RANGESSTANDARD DOSE: 2.0 - 3.0 Includes: PROPHYLAXIS forvenous thrombosis, systemic embolization; TREATMENT for venous thrombosis and/or pulmonary embolus.HIGH RISK: Target INR is 2.5-3.5 for patients with mechanical heart valves.[id number] 08:44:00 Test Item Value Reference Range Comments FIBRINOGEN LEVEL (BEAKER) (test kqjd=551) 367 mg/dl 225-434 [id number] 08:44:00 Test Item Value Reference Range Comments PARTIAL THROMBOPLASTIN TIME (BEAKER) (test 30.0 seconds 22.5-36.0 tofg=057) POCT-GLUCOSE [id number] 07:52:00 Test Item Value Reference Range Comments POC-GLUCOSE METER (BEAKER) 215 mg/dL 70-110 TESTED AT [address] (test ymkt=2562) [place] [address] CT, CHEST, WITHOUT [id number] 07:50:00KEEP PATIENT ON CT TABLE. CALL RADIOLOGIST [...] of the diaphragmatic crura. Signed: Lynnette Castro Verified Date /Time: 07/19/2017 07:50:43 Reading Location: [facility] Diagnostic Imaging Reading Room - [place] [address] Electronically signed by: LYNNETTE CASTRO MD on 07:50 AMPOCT-GLUCOSE [id number] 07:37:00 Test Item Value Reference Range Comments POC-GLUCOSE METER (BEAKER) 225 mg/dL 70-110 TESTED AT [address] (test hiiq=1150) [facility] [address] RAD, CHEST, 1 VIEW, NON [id number] 04:04:00Reason for exam:->v tach/ iabpShould this be [...] MDReport Verified Date/Time: 07/19/2017 04:04:19 Reading Location: [address] Ortho Consult Reading Room [id number] 03:59:00 Test Item Value Reference Range Comments PHOSPHORUS (BEAKER) (test wmjc=872) 4.4 mg/dL 2.3-4.7 [id number] 03:59:00 Test Item Value Reference Range Comments MAGNESIUM (BEAKER) (test bunq=074) 2.5 mg/dL 1.6-2.6 BASIC METABOLIC [id number] 03:59:00 Test Item Value Reference Range Comments SODIUM (BEAKER) (test 145 meq/L 136-145 luqs=005) POTASSIUM (BEAKER) (test 3.6 meq/L 3.5-5.1 jmwq=166) CHLORIDE (BEAKER) (test 106 meq/L 98-107 wgbj=571) CO2 (BEAKER) (test 25 meq/L 22-29 yqmb=908) BLOOD UREA NITROGEN 28 mg/dL 7-21 (BEAKER) (test awov=654) CREATININE (BEAKER) (test 1.93 mg/dL 0.57-1.25 lfky=906) GLUCOSE RANDOM (BEAKER) 216 mg/dL 70-105 (test wlad=875) CALCIUM (BEAKER) (test 9.0 mg/dL 8.4-10.2 zfvl=275) EGFR (BEAKER) (test 31 mL/min/1.73 sq m ESTIMATED GFR IS NOT ssee=4477) ACCURATE CREATININE CLEARANCE IN PREDICTING GLOMERULAR FILTRATION RATE. ESTIMATED GFR IS NOT APPLICABLE FOR DIALYSIS PATIENTS. B-TYPE NATRIURETIC FACTOR (BNP)2017-07-19 03:10:00 Test Item Value Reference Range Comments B-TYPE NATRIURETIC PEPTIDE (BEAKER) (test 2662 pg/mL 0-100 euwu=003) HEPATIC FUNCTION [id number] 03:04:00 Test Item Value Reference Range Comments TOTAL PROTEIN (BEAKER) (test ljie=809) 6.6 gm/dL 6.0-8.3 ALBUMIN (BEAKER) (test kfxf=4992) 3.5 g/dL 3.5-5.0 BILIRUBIN TOTAL (BEAKER) (test kues=575) 0.4 mg/dL 0.2-1.2 BILIRUBIN DIRECT (BEAKER) (test dhcl=678) 0.2 mg/dL 0.1-0.5 ALKALINE PHOSPHATASE (BEAKER) (test mxdx=734) 57 U/L 40-150 AST (SGOT) (BEAKER) (test ecui=280) 359 U/L 5-34 ALT (SGPT) (BEAKER) (test zikq=757) 99 U/L 6-55 CREATINE KINASE (CK)2017-07-19 03:04:00 Test Item Value Reference Range Comments CREATINE KINASE TOTAL (BEAKER) (test zcip=816) 2888 U/L 29-200 CBC W/PLT COUNT & AUTO [id number] 02:56:00 Test Item Value Reference Range Comments WHITE BLOOD CELL COUNT (BEAKER) (test osfr=801) 19.0 K/ L 3.5-10.5 RED BLOOD CELL COUNT (BEAKER) (test egnt=501) 3.69 M/ L 3.93-5.22 HEMOGLOBIN (BEAKER) (test lxcg=913) 11.2 GM/DL 11.2-15.7 HEMATOCRIT (BEAKER) (test bsms=156) 35.3 % 34.1-44.9 MEAN CORPUSCULAR VOLUME (BEAKER) (test dnnh=613) 95.7 fL 79.4-94.8 MEAN CORPUSCULAR HEMOGLOBIN (BEAKER) (test 30.4 pg 25.6-32.2 keeb=607) MEAN CORPUSCULAR HEMOGLOBIN CONC (BEAKER) (test 31.7 GM/DL 32.2-35.5 akdw=695) RED CELL DISTRIBUTION WIDTH (BEAKER) (test 13.1 % 11.7-14.4 djqr=867) PLATELET COUNT (BEAKER) (test sqgj=312) 253 K/CU MM 150-450 MEAN PLATELET VOLUME (BEAKER) (test fflg=928) 10.0 fL 9.4-12.3 NUCLEATED RED BLOOD CELLS (BEAKER) (test 0 /100 WBC 0-0 bckh=823) NEUTROPHILS RELATIVE PERCENT (BEAKER) (test 86 % brfd=197) LYMPHOCYTES RELATIVE PERCENT (BEAKER) (test 6 % cbho=092) MONOCYTES RELATIVE PERCENT (BEAKER) (test 7 % nahu=382) EOSINOPHILS RELATIVE PERCENT (BEAKER) (test 0 % sqkt=617) BASOPHILS RELATIVE PERCENT (BEAKER) (test 0 % lyej=573) NEUTROPHILS ABSOLUTE COUNT (BEAKER) (test 16.34 K/ L 1.56-6.13 axre=604) LYMPHOCYTES ABSOLUTE COUNT (BEAKER) (test 1.15 K/ L 1.18-3.74 zpdf=183) MONOCYTES ABSOLUTE COUNT (BEAKER) (test 1.39 K/ L 0.24-0.36 mgma=720) EOSINOPHILS ABSOLUTE COUNT (BEAKER) (test 0.00 K/ L 0.04-0.36 hqig=666) BASOPHILS ABSOLUTE COUNT (BEAKER) (test 0.02 K/ L 0.01-0.08 fttr=524) IMMATURE GRANULOCYTES-RELATIVE PERCENT (BEAKER) 0 % 0-1 (test puap=4906) CALCIUM, [id number] 02:49:00 Test Item Value Reference Range Comments CALCIUM IONIZED (BEAKER) (test bfdo=284) 1.14 mmol/L 1.12-1.27 PH, BLOOD (BEAKER) (test xjyv=2487) 7.36 CBC (HEMOGRAM ONLY)2017-07-19 02:48:00 Test Item Value Reference Range Comments WHITE BLOOD CELL COUNT (BEAKER) (test wfqy=118) 19.0 K/ L 3.5-10.5 RED BLOOD CELL COUNT (BEAKER) (test rzii=128) 3.69 M/ L 3.93-5.22 HEMOGLOBIN (BEAKER) (test tjsn=162) 11.2 GM/DL 11.2-15.7 HEMATOCRIT (BEAKER) (test kiyv=648) 35.3 % 34.1-44.9 MEAN CORPUSCULAR VOLUME (BEAKER) (test hgjm=323) 95.7 fL 79.4-94.8 MEAN CORPUSCULAR HEMOGLOBIN (BEAKER) (test 30.4 pg 25.6-32.2 rnog=072) MEAN CORPUSCULAR HEMOGLOBIN CONC (BEAKER) (test 31.7 GM/DL 32.2-35.5 dmqh=953) RED CELL DISTRIBUTION WIDTH (BEAKER) (test 13.1 % 11.7-14.4 uspk=944) PLATELET COUNT (BEAKER) (test hnzn=024) 253 K/CU MM 150-450 MEAN PLATELET VOLUME (BEAKER) (test juac=446) 10.0 fL 9.4-12.3 NUCLEATED RED BLOOD CELLS (BEAKER) (test 0 /100 WBC 0-0 ulaw=185) BLOOD GAS, [id number] 02:48:00 Test Item Value Reference Range Comments PH ARTERIAL (BEAKER) (test gzxv=242) 7.35 7.35-7.45 PCO2 ARTERIAL (BEAKER) (test scqo=748) 55 mmHg 35-45 PO2 ARTERIAL (BEAKER) (test zejs=816) 73 mmHg 80-90 O2 SATURATION ARTERIAL (BEAKER) (test hmvn=631) 93.3 % 96.0-97.0 HCO3 ARTERIAL (BEAKER) (test azez=355) 30 mmol/L 21-29 BASE EXCESS ARTERIAL (BEAKER) (test jqvc=273) 3.1 mmol/L -2.0-3.0 PATIENT TEMPERATURE (BEAKER) (test mzwi=9117) 37.5 C FIO2 (BEAKER) (test xhdw=4171) 40.0 % POCT-GLUCOSE [id number] 02:21:00 Test Item Value Reference Range Comments POC-GLUCOSE METER (BEAKER) 184 mg/dL 70-110 TESTED AT [facility] [address] [facility] (test hjck=1726) [facility] [address] POCT-GLUCOSE [id number] 01:15:00 Test Item Value Reference Range Comments POC-GLUCOSE METER (BEAKER) 173 mg/dL 70-110 TESTED AT [address] (test bysa=6447) [facility] [address] [id number] 00:55:00 Test Item Value Reference Range Comments PHOSPHORUS (BEAKER) (test douq=052) 3.3 mg/dL 2.3-4.7 [id number] 00:55:00 Test Item Value Reference Range Comments MAGNESIUM (BEAKER) (test vtus=112) 1.8 mg/dL 1.6-2.6 BASIC METABOLIC [id number] 00:55:00 Test Item Value Reference Range Comments SODIUM (BEAKER) (test 143 meq/L 136-145 tfef=720) POTASSIUM (BEAKER) (test 3.9 meq/L 3.5-5.1 xovg=667) CHLORIDE (BEAKER) (test 106 meq/L 98-107 duvu=216) CO2 (BEAKER) (test 27 meq/L 22-29 fmts=497) BLOOD UREA NITROGEN 27 mg/dL 7-21 (BEAKER) (test maoy=897) CREATININE (BEAKER) (test 1.90 mg/dL 0.57-1.25 ewkz=948) GLUCOSE RANDOM (BEAKER) 181 mg/dL 70-105 (test pije=795) CALCIUM (BEAKER) (test 8.9 mg/dL 8.4-10.2 znci=460) EGFR (BEAKER) (test 32 mL/min/1.73 sq m ESTIMATED GFR IS NOT xqok=7904) ACCURATE CREATININE CLEARANCE IN PREDICTING GLOMERULAR FILTRATION RATE. ESTIMATED GFR IS NOT APPLICABLE FOR DIALYSIS PATIENTS. POCT-GLUCOSE [id number] 00:11:00 Test Item Value Reference Range Comments POC-GLUCOSE METER (BEAKER) 177 mg/dL 70-110 TESTED AT [address] (test axsz=4356) [facility] [address] POCT-GLUCOSE [id number] 23:25:00 Test Item Value Reference Range Comments POC-GLUCOSE METER (BEAKER) 206 mg/dL 70-110 TESTED AT [address] (test vpcp=2137) [facility] [address] POCT-GLUCOSE [id number] 22:19:00 Test Item Value Reference Range Comments POC-GLUCOSE METER (BEAKER) 243 mg/dL 70-110 TESTED AT [address] (test cqux=7323) [facility] [address] POCT-GLUCOSE [id number] 21:37:00 Test Item Value Reference Range Comments POC-GLUCOSE METER (BEAKER) 235 mg/dL 70-110 TESTED AT [address] (test ziha=7278) [facility] [address] POCT-GLUCOSE [id number] 20:04:00 Test Item Value Reference Range Comments POC-GLUCOSE METER (BEAKER) 216 mg/dL 70-110 TESTED AT [address] (test wqnn=4276) [facility] [address] POCT-GLUCOSE [id number] 18:40:00 Test Item Value Reference Range Comments POC-GLUCOSE METER (BEAKER) 271 mg/dL 70-110 TESTED AT [address] (test bkgd=1797) [facility] [address] [id number] 18:32:00 Test Item Value Reference Range Comments MAGNESIUM (BEAKER) (test 1.9 mg/dL 1.6-2.6 Specimen slightly hemolyzed cbzn=103) [id number] 18:32:00 Test Item Value Reference Range Comments PHOSPHORUS (BEAKER) (test 3.1 mg/dL 2.3-4.7 Specimen slightly hemolyzed ulai=286) BASIC METABOLIC [id number] 18:32:00 Test Item Value Reference Range Comments SODIUM (BEAKER) (test 142 meq/L 136-145 egak=804) POTASSIUM (BEAKER) (test 3.9 meq/L 3.5-5.1 Specimen slightly vvgz=688) hemolyzed CHLORIDE (BEAKER) (test 107 meq/L 98-107 obvu=786) CO2 (BEAKER) (test 24 meq/L 22-29 xkpd=603) BLOOD UREA NITROGEN 22 mg/dL 7-21 (BEAKER) (test nrhj=513) CREATININE (BEAKER) (test 1.55 mg/dL 0.57-1.25 Specimen slightly baol=991) hemolyzed GLUCOSE RANDOM (BEAKER) 242 mg/dL 70-105 (test ptbk=287) CALCIUM (BEAKER) (test 8.8 mg/dL 8.4-10.2 ljwe=336) EGFR (BEAKER) (test 40 mL/min/1.73 sq m ESTIMATED GFR IS NOT jjjx=3262) ACCURATE CREATININE CLEARANCE IN PREDICTING GLOMERULAR FILTRATION RATE. ESTIMATED GFR IS NOT APPLICABLE FOR DIALYSIS PATIENTS. BLOOD GAS, [id number] 18:24:00 Test Item Value Reference Range Comments PH ARTERIAL (BEAKER) (test vmai=867) 7.34 7.35-7.45 PCO2 ARTERIAL (BEAKER) (test ikkt=482) 51 mmHg 35-45 PO2 ARTERIAL (BEAKER) (test bjbr=090) 57 mmHg 80-90 O2 SATURATION ARTERIAL (BEAKER) (test epip=630) 87.5 % 96.0-97.0 HCO3 ARTERIAL (BEAKER) (test tzdl=057) 27 mmol/L 21-29 BASE EXCESS ARTERIAL (BEAKER) (test zbef=928) 1.0 mmol/L -2.0-3.0 PATIENT TEMPERATURE (BEAKER) (test trxo=7399) 37.2 C FIO2 (BEAKER) (test lmuj=8160) 40.0 % POCT-GLUCOSE [id number] 17:14:00 Test Item Value Reference Range Comments POC-GLUCOSE METER (BEAKER) 299 mg/dL 70-110 TESTED AT [address] (test dgsi=5639) [facility] [address] LACTIC ACID, ARTERIAL, WHOLE [id number] 16:37:00 Test Item Value Reference Range Comments LACTATE BLOOD ARTERIAL (2) 2.9 mmol/L 0.5-2.2 Specimen slightly hemolyzed (BEAKER) (test xwdq=3399) Effective 08/06/2015: Units/Reference Range ChangeNew: 0.5-2.2 mmol/L Previous: 5 -20 mg/[id number] 15:45:00 Test Item Value Reference Range Comments GLUCOSE RANDOM (BEAKER) (test edao=125) 439 mg/dL 70-105 If last glucose was less than 500, may do bedside glucose instead of serum glucose.POCT-GLUCOSE [id number] 15:21:00 Test Item Value Reference Range Comments POC-GLUCOSE METER (BEAKER) 374 mg/dL 70-110 Notified PAULA BERGER/TESTED AT [facility] (test zoti=8356) [facility] [place] [facility] [address] [id number] 15:14:00 Test Item Value Reference Range Comments POTASSIUM (BEAKER) (test rgsa=837) 4.0 meq/L 3.5-5.1 If last glucose was less than 500, may do bedside glucose instead of serum glucose.URINALYSIS W/ [id number] 15:03:00 Test Item Value Reference Range Comments COLOR (BEAKER) (test czyv=954) Yellow CLARITY (BEAKER) (test smtw=324) Clear SPECIFIC GRAVITY UA (BEAKER) (test jdxy=011) 1.050 1.001-1.035 PH UA (BEAKER) (test saig=317) 5.5 5.0-8.0 PROTEIN UA (BEAKER) (test pdxl=207) 50 mg/dL Negative GLUCOSE UA (BEAKER) (test kxcz=718) >1000 mg/dL Negative KETONES UA (BEAKER) (test wzrk=092) Negative Negative BILIRUBIN UA (BEAKER) (test vhdk=477) Negative Negative BLOOD UA (BEAKER) (test mmct=879) Moderate Negative NITRITE UA (BEAKER) (test riqo=866) Negative Negative LEUKOCYTE ESTERASE UA (BEAKER) (test ecxv=255) Negative Negative UROBILINOGEN UA (BEAKER) (test ljef=436) 0.2 mg/dL 0.2-1.0 RBC UA (BEAKER) (test zlrz=463) 16 /HPF WBC UA (BEAKER) (test kfsx=740) 11 /HPF BACTERIA (BEAKER) (test jurb=835) Rare MUCUS (BEAKER) (test dtyz=4739) Rare SQUAMOUS EPITHELIAL (BEAKER) (test shfs=159) 1 /HPF SOURCE(BEAKER) (test uirb=5071) U/S, RENAL, [id number] 14:36:00Reason for exam:->acute renal failure , hydronephrosisShould [...] MDReport Verified Date/Time: 07/18/2017 14:36:40 Reading Location: [address] Ultrasound Reading Room Electronically signed by: VIRGINIA DIAZ M.D. on 02:36 PMT4, [id number] 14:31:00 Test Item Value Reference Range Comments FREE T4 (BEAKER) (test zqhr=062) 1.13 ng/dL 0.70-1.48 BLOOD GAS, [id number] 14:01:00 Test Item Value Reference Range Comments PH ARTERIAL (BEAKER) (test vlzs=189) 7.42 7.35-7.45 PCO2 ARTERIAL (BEAKER) (test vceg=190) 42 mmHg 35-45 PO2 ARTERIAL (BEAKER) (test lins=969) 66 mmHg 80-90 O2 SATURATION ARTERIAL (BEAKER) (test ahpi=730) 93.5 % 96.0-97.0 HCO3 ARTERIAL (BEAKER) (test wjek=268) 27 mmol/L 21-29 BASE EXCESS ARTERIAL (BEAKER) (test nsyp=402) 2.1 mmol/L -2.0-3.0 PATIENT TEMPERATURE (BEAKER) (test uzko=1932) 36.9 C FIO2 (BEAKER) (test rqyo=2371) 40.0 % HEMOGLOBIN [id number] 13:57:00 Test Item Value Reference Range Comments HEMOGLOBIN A1C (BEAKER) (test wsua=960) 9.8 % 4.3-6.1 SODIUM, RANDOM [id number] 13:49:00 Test Item Value Reference Range Comments SODIUM URINE (BEAKER) (test crlo=168) 22 meq/L Reference Range: No NormalsTSH/FREE T4 IF [id number] 13:49:00 Test Item Value Reference Range Comments THYROID STIMULATING HORMONE (BEAKER) (test 0.27 uIU/mL 0.35-4.94 erua=204) POCT-GLUCOSE [id number] 13:47:00 Test Item Value Reference Range Comments POC-GLUCOSE METER (BEAKER) 398 mg/dL 70-110 TESTED AT [facility] [address] (test gklj=2520) [facility] [address] CREATININE, RANDOM [id number] 13:43:00 Test Item Value Reference Range Comments CREATININE URINE (BEAKER) (test zojg=757) 85.4 mg/dL Reference Range: No NormalsPROTEIN, RANDOM [id number] 13:43:00 Test Item Value Reference Range Comments PROTEIN, URINE (BEAKER) (test mhsc=4545) 75 mg/dL 0-14 B-TYPE NATRIURETIC FACTOR (BNP)2017-07-18 13:17:00 Test Item Value Reference Range Comments B-TYPE NATRIURETIC PEPTIDE (BEAKER) (test 1847 pg/mL 0-100 kgxe=117) BASIC METABOLIC [id number] 13:13:00 Test Item Value Reference Range Comments SODIUM (BEAKER) (test 138 meq/L 136-145 hkdy=551) POTASSIUM (BEAKER) (test 4.8 meq/L 3.5-5.1 vrhb=034) CHLORIDE (BEAKER) (test 101 meq/L 98-107 dsow=421) CO2 (BEAKER) (test 26 meq/L 22-29 jboq=042) BLOOD UREA NITROGEN 21 mg/dL 7-21 (BEAKER) (test nsgg=968) CREATININE (BEAKER) (test 1.62 mg/dL 0.57-1.25 cdlh=404) GLUCOSE RANDOM (BEAKER) 527 mg/dL 70-105 (test vjza=209) CALCIUM (BEAKER) (test 8.9 mg/dL 8.4-10.2 inoc=746) EGFR (BEAKER) (test 38 mL/min/1.73 sq m ESTIMATED GFR IS NOT gmsl=1020) ACCURATE CREATININE CLEARANCE IN PREDICTING GLOMERULAR FILTRATION RATE. ESTIMATED GFR IS NOT APPLICABLE FOR DIALYSIS PATIENTS. If last glucose was less than 500, may do bedside glucose instead of serum glucose.[id number] 13:12:00 Test Item Value Reference Range Comments MAGNESIUM (BEAKER) (test nmgi=655) 1.9 mg/dL 1.6-2.6 If last glucose was less than 500, may do bedside glucose instead of serum glucose.[id number] 13:12:00 Test Item Value Reference Range Comments LIPASE (BEAKER) (test khph=366) 106 U/L 8-78 If last glucose was less than 500, may do bedside glucose instead of serum glucose.[id number] 13:11:00 Test Item Value Reference Range Comments PHOSPHORUS (BEAKER) (test jnoy=393) 3.3 mg/dL 2.3-4.7 If last glucose was less than 500, may do bedside glucose instead of serum glucose.POCT-GLUCOSE [id number] 12:49:00 Test Item Value Reference Range Comments POC-GLUCOSE METER (BEAKER) 498 mg/dL 70-110 Notified PAULA BERGER/TESTED AT [facility] (test kpvz=8115) [address] [facility] [address] LACTIC ACID, VENOUS, WHOLE [id number] 12:11:00 Test Item Value Reference Range Comments LACTATE BLOOD VENOUS (2) (BEAKER) (test 3.8 mmol/L 0.5-2.2 exrp=6300) Effective 08/06/2015: Units/Reference Range ChangeNew: 0.5-2.2 mmol/L Previous: 5 -20 mg/[id number] 12:10:00 Test Item Value Reference Range Comments PROCALCITONIN (BEAKER) (test cxjr=3197) 3.80 ng/mL <0.05 SEPSIS RISK (ng/mL)Low: 0.05-0.50Intermediate: 0.51-2.00High: & gt;=2.01CBC W/PLT COUNT & AUTO [id number] 12:10:00 Test Item Value Reference Range Comments WHITE BLOOD CELL COUNT (BEAKER) (test hzkr=137) 11.2 K/ L 3.5-10.5 RED BLOOD CELL COUNT (BEAKER) (test wwkd=680) 3.98 M/ L 3.93-5.22 HEMOGLOBIN (BEAKER) (test gcjt=692) 12.0 GM/DL 11.2-15.7 HEMATOCRIT (BEAKER) (test pekz=966) 38.5 % 34.1-44.9 MEAN CORPUSCULAR VOLUME (BEAKER) (test dvve=088) 96.7 fL 79.4-94.8 MEAN CORPUSCULAR HEMOGLOBIN (BEAKER) (test 30.2 pg 25.6-32.2 ijba=978) MEAN CORPUSCULAR HEMOGLOBIN CONC (BEAKER) (test 31.2 GM/DL 32.2-35.5 wqwb=385) RED CELL DISTRIBUTION WIDTH (BEAKER) (test 13.1 % 11.7-14.4 lrlp=073) PLATELET COUNT (BEAKER) (test czpx=920) 222 K/CU MM 150-450 MEAN PLATELET VOLUME (BEAKER) (test ohpq=838) 10.2 fL 9.4-12.3 NUCLEATED RED BLOOD CELLS (BEAKER) (test 0 /100 WBC 0-0 kivm=084) NEUTROPHILS RELATIVE PERCENT (BEAKER) (test 96 % ldmz=723) LYMPHOCYTES RELATIVE PERCENT (BEAKER) (test 2 % cpgm=494) MONOCYTES RELATIVE PERCENT (BEAKER) (test 2 % hgsl=552) EOSINOPHILS RELATIVE PERCENT (BEAKER) (test 0 % duot=811) BASOPHILS RELATIVE PERCENT (BEAKER) (test 0 % tcei=038) NEUTROPHILS ABSOLUTE COUNT (BEAKER) (test 10.72 K/ L 1.56-6.13 ogpx=426) LYMPHOCYTES ABSOLUTE COUNT (BEAKER) (test 0.24 K/ L 1.18-3.74 ovny=810) MONOCYTES ABSOLUTE COUNT (BEAKER) (test 0.22 K/ L 0.24-0.36 xbwx=638) EOSINOPHILS ABSOLUTE COUNT (BEAKER) (test 0.00 K/ L 0.04-0.36 milx=024) BASOPHILS ABSOLUTE COUNT (BEAKER) (test 0.01 K/ L 0.01-0.08 kiqv=831) IMMATURE GRANULOCYTES-RELATIVE PERCENT (BEAKER) 0 % 0-1 (test xfzq=1546) BASIC METABOLIC [id number] 11:35:00 Test Item Value Reference Range Comments SODIUM (BEAKER) (test 136 meq/L 136-145 zgxn=544) POTASSIUM (BEAKER) (test 4.8 meq/L 3.5-5.1 vtbr=217) CHLORIDE (BEAKER) (test 99 meq/L 98-107 mzft=845) CO2 (BEAKER) (test 25 meq/L 22-29 syel=854) BLOOD UREA NITROGEN 19 mg/dL 7-21 (BEAKER) (test jhyl=654) CREATININE (BEAKER) (test 1.61 mg/dL 0.57-1.25 umec=185) GLUCOSE RANDOM (BEAKER) 568 mg/dL 70-105 (test eyqb=727) CALCIUM (BEAKER) (test 8.9 mg/dL 8.4-10.2 qclh=937) EGFR (BEAKER) (test 38 mL/min/1.73 sq m ESTIMATED GFR IS NOT mizr=7286) ACCURATE CREATININE CLEARANCE IN PREDICTING GLOMERULAR FILTRATION RATE. ESTIMATED GFR IS NOT APPLICABLE FOR DIALYSIS PATIENTS. BLOOD GAS, [id number] 10:57:00 Test Item Value Reference Range Comments PH ARTERIAL (BEAKER) (test bfeg=964) 7.36 7.35-7.45 PCO2 ARTERIAL (BEAKER) (test bbir=589) 47 mmHg 35-45 PO2 ARTERIAL (BEAKER) (test rvsu=851) 78 mmHg 80-90 O2 SATURATION ARTERIAL (BEAKER) (test nzji=690) 95.0 % 96.0-97.0 HCO3 ARTERIAL (BEAKER) (test omua=639) 26 mmol/L 21-29 BASE EXCESS ARTERIAL (BEAKER) (test ijhv=375) 0.4 mmol/L -2.0-3.0 PATIENT TEMPERATURE (BEAKER) (test tzsl=4471) 37.0 C FIO2 (BEAKER) (test fhmc=0834) 100.0 % RAD, CHEST, 1 VIEW, NON [id number] 10:38:00Reason for exam:->IABP Should this be performed [...] MDReport Verified Date/Time: 07/18/2017 10:38:31 Reading Location: [facility] Radiology Reading Room CBC W/PLT COUNT & AUTO [id number] 10: 01:00 Test Item Value Reference Range Comments WHITE BLOOD CELL COUNT (BEAKER) (test rsjn=087) 12.8 K/ L 3.5-10.5 RED BLOOD CELL COUNT (BEAKER) (test napx=295) 3.95 M/ L 3.93-5.22 HEMOGLOBIN (BEAKER) (test qcyn=601) 11.9 GM/DL 11.2-15.7 HEMATOCRIT (BEAKER) (test zwub=410) 38.3 % 34.1-44.9 MEAN CORPUSCULAR VOLUME (BEAKER) (test ikpo=366) 97.0 fL 79.4-94.8 MEAN CORPUSCULAR HEMOGLOBIN (BEAKER) (test 30.1 pg 25.6-32.2 olvg=766) MEAN CORPUSCULAR HEMOGLOBIN CONC (BEAKER) (test 31.1 GM/DL 32.2-35.5 adtn=327) RED CELL DISTRIBUTION WIDTH (BEAKER) (test 13.1 % 11.7-14.4 wskl=155) PLATELET COUNT (BEAKER) (test wrdc=228) 231 K/CU MM 150-450 MEAN PLATELET VOLUME (BEAKER) (test mgzl=701) 10.4 fL 9.4-12.3 NUCLEATED RED BLOOD CELLS (BEAKER) (test 0 /100 WBC 0-0 yhnv=227) NEUTROPHILS RELATIVE PERCENT (BEAKER) (test 91 % vqpp=425) LYMPHOCYTES RELATIVE PERCENT (BEAKER) (test 4 % dmmb=180) MONOCYTES RELATIVE PERCENT (BEAKER) (test 4 % dhtp=624) EOSINOPHILS RELATIVE PERCENT (BEAKER) (test 0 % txib=086) BASOPHILS RELATIVE PERCENT (BEAKER) (test 0 % idub=463) NEUTROPHILS ABSOLUTE COUNT (BEAKER) (test 11.66 K/ L 1.56-6.13 ywsw=193) LYMPHOCYTES ABSOLUTE COUNT (BEAKER) (test 0.53 K/ L 1.18-3.74 ixvy=683) MONOCYTES ABSOLUTE COUNT (BEAKER) (test 0.49 K/ L 0.24-0.36 qlnh=920) EOSINOPHILS ABSOLUTE COUNT (BEAKER) (test 0.01 K/ L 0.04-0.36 mqcx=011) BASOPHILS ABSOLUTE COUNT (BEAKER) (test 0.03 K/ L 0.01-0.08 kdex=011) IMMATURE GRANULOCYTES-RELATIVE PERCENT (BEAKER) 0 % 0-1 (test pnde=5825) COMPREHENSIVE METABOLIC [id number] 09:38:00 Test Item Value Reference Range Comments TOTAL PROTEIN (BEAKER) 6.7 gm/dL 6.0-8.3 Specimen slightly (test evqm=009) hemolyzed ALBUMIN (BEAKER) (test 3.5 g/dL 3.5-5.0 Specimen slightly ovgs=6864) hemolyzed ALKALINE PHOSPHATASE 70 U/L 40-150 (BEAKER) (test nzrp=584) BILIRUBIN TOTAL (BEAKER) 0.6 mg/dL 0.2-1.2 Specimen slightly (test uzoe=022) hemolyzed SODIUM (BEAKER) (test 134 meq/L 136-145 luvq=008) POTASSIUM (BEAKER) (test 4.7 meq/L 3.5-5.1 Specimen slightly uncx=645) hemolyzed CHLORIDE (BEAKER) (test 98 meq/L 98-107 zosa=022) CO2 (BEAKER) (test 25 meq/L 22-29 iekw=250) BLOOD UREA NITROGEN 19 mg/dL 7-21 (BEAKER) (test bzeg=565) CREATININE (BEAKER) (test 1.57 mg/dL 0.57-1.25 Specimen slightly ieph=165) hemolyzed GLUCOSE RANDOM (BEAKER) 652 mg/dL 70-105 (test wnun=366) CALCIUM (BEAKER) (test 8.7 mg/dL 8.4-10.2 rvhw=501) AST (SGOT) (BEAKER) (test 343 U/L 5-34 Specimen slightly wygt=484) hemolyzed ALT (SGPT) (BEAKER) (test 89 U/L 6-55 Specimen slightly mibv=447) hemolyzed EGFR (BEAKER) (test 39 mL/min/1.73 sq m ESTIMATED GFR IS NOT kcbr=1822) ACCURATE CREATININE CLEARANCE IN PREDICTING GLOMERULAR FILTRATION RATE. ESTIMATED GFR IS NOT APPLICABLE FOR DIALYSIS PATIENTS. [id number] 09:09:00 Test Item Value Reference Range Comments ACTIVATED CLOTTING TIME 252 sec TESTED AT [facility] [address] [facility] (BEAKER) (test hgia=389) [place] [address] PROTHROMBIN [id number] 09:01:00 Test Item Value Reference Range Comments PROTIME (BEAKER) (test mdgv=270) 18.3 seconds 11.7-14.7 INR (BEAKER) (test dimj=610) 1.5 <=5.9 RECOMMENDED COUMADIN/WARFARIN INR THERAPY RANGESSTANDARD DOSE: 2.0 - 3.0 Includes: PROPHYLAXIS forvenous thrombosis, systemic embolization; TREATMENT for venous thrombosis and/or pulmonary embolus.HIGH RISK: Target INR is 2.5-3.5 for patients with mechanical heart valves.[id number] 08:09:00 Test Item Value Reference Range Comments ACTIVATED CLOTTING TIME 213 sec TESTED AT [address] (BEAKER) (test lrlj=695) [place] [address] [id number] 08:09:00 Test Item Value Reference Range Comments ACTIVATED CLOTTING TIME 263 sec TESTED AT [address] (BEAKER) (test wpzy=654) [place] [address] BLOOD GAS, [id number] 07:50:00 Test Item Value Reference Range Comments PH ARTERIAL (BEAKER) (test bxqo=605) 7.20 7.35-7.45 PCO2 ARTERIAL (BEAKER) (test snuj=122) 65 mmHg 35-45 PO2 ARTERIAL (BEAKER) (test pmnf=308) 133 mmHg 80-90 O2 SATURATION ARTERIAL (BEAKER) (test voxj=025) 98.1 % 96.0-97.0 HCO3 ARTERIAL (BEAKER) (test olzj=182) 25 mmol/L 21-29 BASE EXCESS ARTERIAL (BEAKER) (test zpfi=051) -4.3 mmol/L -2.0-3.0 PATIENT TEMPERATURE (BEAKER) (test oeaw=8693) 36.0 C FIO2 (BEAKER) (test zcnd=5110) 100.0 % POCT-GLUCOSE [id number] 12:27:00 Test Item Value Reference Range Comments POC-GLUCOSE METER (BEAKER) 156 mg/dL 70-110 TESTED AT [address] (test bbdl=7725) [place] [address] BASIC METABOLIC [id number] 05:45:00 Test Item Value Reference Range Comments SODIUM (BEAKER) (test 141 meq/L 136-145 lebk=725) POTASSIUM (BEAKER) (test 4.1 meq/L 3.5-5.1 zjyq=338) CHLORIDE (BEAKER) (test 106 meq/L 98-107 ynho=136) CO2 (BEAKER) (test 26 meq/L 22-29 ikxu=181) BLOOD UREA NITROGEN 11 mg/dL 7-21 (BEAKER) (test idtb=440) CREATININE (BEAKER) (test 0.83 mg/dL 0.57-1.25 jkyk=198) GLUCOSE RANDOM (BEAKER) 139 mg/dL 70-105 (test nxpc=087) CALCIUM (BEAKER) (test 8.5 mg/dL 8.4-10.2 llnv=763) EGFR (BEAKER) (test 83 mL/min/1.73 sq m ESTIMATED GFR IS NOT ehtn=9562) ACCURATE CREATININE CLEARANCE IN PREDICTING GLOMERULAR FILTRATION RATE. ESTIMATED GFR IS NOT APPLICABLE FOR DIALYSIS PATIENTS. POCT-GLUCOSE [id number] 21:10:00 Test Item Value Reference Range Comments POC-GLUCOSE METER (BEAKER) 103 mg/dL 70-110 TESTED AT [address] (test mqac=5176) [place] [address] POCT-GLUCOSE [id number] 17:51:00 Test Item Value Reference Range Comments POC-GLUCOSE METER (BEAKER) 138 mg/dL 70-110 TESTED AT [address] (test dwvp=7113) [place] [address] POCT-GLUCOSE [id number] 12:45:00 Test Item Value Reference Range Comments POC-GLUCOSE METER (BEAKER) 294 mg/dL 70-110 TESTED AT [address] (test fuuw=8129) [place] [address] CBC WITH PLATELET COUNT + MANUAL [id number] 07:04:00 Test Item Value Reference Range Comments WHITE BLOOD CELL COUNT (BEAKER) (test qvvd=698) 10.7 K/ L 4.0-10.0 RED BLOOD CELL COUNT (BEAKER) (test thyv=554) 3.91 M/ L 4.00-5.00 HEMOGLOBIN (BEAKER) (test shyi=329) 12.9 GM/DL 12.0-15.0 HEMATOCRIT (BEAKER) (test edtq=663) 39.0 % 36.0-45.0 MEAN CORPUSCULAR VOLUME (BEAKER) (test pmpm=704) 99.6 fL 82.0-99.0 MEAN CORPUSCULAR HEMOGLOBIN (BEAKER) (test 32.9 pg 27.0-33.0 hpes=069) MEAN CORPUSCULAR HEMOGLOBIN CONC (BEAKER) (test 33.0 GM/DL 32.0-36.0 gnke=943) RED CELL DISTRIBUTION WIDTH (BEAKER) (test 12.8 % 10.3-14.2 iyor=004) PLATELET COUNT (BEAKER) (test jquv=174) 251 K/CU MM 150-430 MEAN PLATELET VOLUME (BEAKER) (test htez=829) 8.1 fL 6.5-10.5 NUCLEATED RED BLOOD CELLS (BEAKER) (test 0 /100 WBC 0-0 tdqg=273) NEUTROPHILS RELATIVE PERCENT (BEAKER) (test 80 % kqev=648) LYMPHOCYTES RELATIVE PERCENT (BEAKER) (test 14 % nrsp=262) MONOCYTES RELATIVE PERCENT (BEAKER) (test 6 % fsfm=825) EOSINOPHILS RELATIVE PERCENT (BEAKER) (test 0 % swst=885) BASOPHILS RELATIVE PERCENT (BEAKER) (test 0 % fcci=915) NEUTROPHILS ABSOLUTE COUNT (BEAKER) (test 8.55 K/ L 1.80-8.00 ziug=322) LYMPHOCYTES ABSOLUTE COUNT (BEAKER) (test 1.46 K/ L 1.48-4.50 brco=221) MONOCYTES ABSOLUTE COUNT (BEAKER) (test 0.60 K/ L 0.00-1.30 gbqr=410) EOSINOPHILS ABSOLUTE COUNT (BEAKER) (test 0.05 K/ L 0.00-0.50 wuoq=533) BASOPHILS ABSOLUTE COUNT (BEAKER) (test 0.02 K/ L 0.00-0.20 nocc=211) 0.00(MANUAL DIFFERENTIAL)2016-06-14 07:04:00 Test Item Value Reference Range Comments TOTAL COUNTED (BEAKER) (test usnl=7242) PLT MORPHOLOGY (BEAKER) (test rhaw=347) Normal RBC MORPHOLOGY (BEAKER) (test jsvi=958) Normal ATYPICAL LYMPHS(BEAKER) (test jgjo=7093) Present BASIC METABOLIC [id number] 05:05:00 Test Item Value Reference Range Comments SODIUM (BEAKER) (test 140 meq/L 136-145 kmhb=959) POTASSIUM (BEAKER) (test 3.8 meq/L 3.5-5.1 poqh=595) CHLORIDE (BEAKER) (test 107 meq/L 98-107 mbba=891) CO2 (BEAKER) (test 26 meq/L 22-29 bdfk=886) BLOOD UREA NITROGEN 13 mg/dL 7-21 (BEAKER) (test btxz=566) CREATININE (BEAKER) (test 0.80 mg/dL 0.57-1.25 rzfv=301) GLUCOSE RANDOM (BEAKER) 177 mg/dL 70-105 (test pmqr=885) CALCIUM (BEAKER) (test 8.3 mg/dL 8.4-10.2 herl=107) EGFR (BEAKER) (test 86 mL/min/1.73 sq m ESTIMATED GFR IS NOT kixs=3167) ACCURATE CREATININE CLEARANCE IN PREDICTING GLOMERULAR FILTRATION RATE. ESTIMATED GFR IS NOT APPLICABLE FOR DIALYSIS PATIENTS. [id number] 04:48:00 Test Item Value Reference Range Comments PROTIME (BEAKER) (test mscn=350) 13.0 seconds 11.7-14.7 INR (BEAKER) (test fkkt=963) 1.0 <=5.9 PARTIAL THROMBOPLASTIN TIME (BEAKER) (test 31.8 seconds 22.5-36.0 bkdx=967) RECOMMENDED COUMADIN/WARFARIN INR THERAPY RANGESSTANDARD DOSE: 2.0 - 3.0 Includes: PROPHYLAXIS forvenous thrombosis, systemic embolization; TREATMENT for venous thrombosis and/or pulmonary embolus.HIGH RISK: Target INR is 2.5-3.5 for patients with mechanical heart valves.POCT-GLUCOSE [id number] 22:11:00 Test Item Value Reference Range Comments POC-GLUCOSE METER (BEAKER) 200 mg/dL 70-110 TESTED AT [address] (test hzwq=4272) [place] [id number] POCT-GLUCOSE [id number] 17:13:00 Test Item Value Reference Range Comments POC-GLUCOSE METER (BEAKER) 225 mg/dL 70-110 TESTED AT [address] (test alvu=8656) [place] [id number] POCT-GLUCOSE [id number] 12:22:00 Test Item Value Reference Range Comments POC-GLUCOSE METER (BEAKER) 309 mg/dL 70-110 Notified PAULA BERGER/TESTED AT [facility] (test vdxd=4720) [address] [place] [address] URINALYSIS W/ [id number] 12:09:00 Test Item Value Reference Range Comments COLOR (BEAKER) (test arwz=725) Yellow CLARITY (BEAKER) (test jadk=901) Clear SPECIFIC GRAVITY UA (BEAKER) (test omur=765) 1.035 1.001-1.035 PH UA (BEAKER) (test gsyi=608) 5.0 5.0-8.0 PROTEIN UA (BEAKER) (test gtvx=386) Negative Negative GLUCOSE UA (BEAKER) (test rcap=348) 150 mg/dL Negative KETONES UA (BEAKER) (test yzpc=894) Negative Negative BILIRUBIN UA (BEAKER) (test kauv=440) Negative Negative BLOOD UA (BEAKER) (test cyiq=126) Small Negative NITRITE UA (BEAKER) (test znqe=412) Negative Negative LEUKOCYTE ESTERASE UA (BEAKER) (test ozeu=915) Negative Negative UROBILINOGEN UA (BEAKER) (test cjwb=197) 0.2 mg/dL 0.2-1.0 RBC UA (BEAKER) (test eauf=851) 6 /HPF WBC UA (BEAKER) (test fwhq=213) 1 /HPF MUCUS (BEAKER) (test kzwh=7137) Rare SQUAMOUS EPITHELIAL (BEAKER) (test hvze=622) 6 /HPF HYALINE CASTS (BEAKER) (test qgbq=037) 2 /LPF SOURCE(BEAKER) (test klak=2666) POCT-GLUCOSE [id number] 07:58:00 Test Item Value Reference Range Comments POC-GLUCOSE METER (BEAKER) 236 mg/dL 70-110 TESTED AT [address] (test tpsu=7789) [facility] [address] BASIC METABOLIC [id number] 04:10:00 Test Item Value Reference Range Comments SODIUM (BEAKER) (test 138 meq/L 136-145 knlz=582) POTASSIUM (BEAKER) (test 4.2 meq/L 3.5-5.1 hpsx=238) CHLORIDE (BEAKER) (test 107 meq/L 98-107 ibly=314) CO2 (BEAKER) (test 22 meq/L 22-29 fsky=823) BLOOD UREA NITROGEN 20 mg/dL 7-21 (BEAKER) (test rnqb=400) CREATININE (BEAKER) (test 1.00 mg/dL 0.57-1.25 cscz=135) GLUCOSE RANDOM (BEAKER) 246 mg/dL 70-105 (test htsv=698) CALCIUM (BEAKER) (test 8.8 mg/dL 8.4-10.2 gani=407) EGFR (BEAKER) (test 67 mL/min/1.73 sq m ESTIMATED GFR IS NOT jepg=2043) ACCURATE CREATININE CLEARANCE IN PREDICTING GLOMERULAR FILTRATION RATE. ESTIMATED GFR IS NOT APPLICABLE FOR DIALYSIS PATIENTS. PT/[id number] 04:03:00 Test Item Value Reference Range Comments PROTIME (BEAKER) (test rrsb=365) 12.8 seconds 11.7-14.7 INR (BEAKER) (test mbau=968) 1.0 <=5.9 PARTIAL THROMBOPLASTIN TIME (BEAKER) (test 29.6 seconds 22.5-36.0 gvpl=828) RECOMMENDED COUMADIN/WARFARIN INR THERAPY RANGESSTANDARD DOSE: 2.0 - 3.0 Includes: PROPHYLAXIS forvenous thrombosis, systemic embolization; TREATMENT for venous thrombosis and/or pulmonary embolus.HIGH RISK: Target INR is 2.5-3.5 for patients with mechanical heart valves.CBC WITH PLATELET COUNT + MANUAL [id number] 03:58:00 Test Item Value Reference Range Comments WHITE BLOOD CELL COUNT (BEAKER) (test wizd=564) 14.3 K/ L 4.0-10.0 RED BLOOD CELL COUNT (BEAKER) (test yfec=061) 4.03 M/ L 4.00-5.00 HEMOGLOBIN (BEAKER) (test xqkp=982) 13.1 GM/DL 12.0-15.0 HEMATOCRIT (BEAKER) (test wokr=510) 39.7 % 36.0-45.0 MEAN CORPUSCULAR VOLUME (BEAKER) (test rrlx=372) 98.5 fL 82.0-99.0 MEAN CORPUSCULAR HEMOGLOBIN (BEAKER) (test 32.6 pg 27.0-33.0 nnkc=670) MEAN CORPUSCULAR HEMOGLOBIN CONC (BEAKER) (test 33.1 GM/DL 32.0-36.0 jxgj=399) RED CELL DISTRIBUTION WIDTH (BEAKER) (test 12.9 % 10.3-14.2 mlju=790) PLATELET COUNT (BEAKER) (test fgle=298) 271 K/CU MM 150-430 MEAN PLATELET VOLUME (BEAKER) (test acov=892) 7.7 fL 6.5-10.5 NUCLEATED RED BLOOD CELLS (BEAKER) (test 0 /100 WBC 0-0 rymk=317) NEUTROPHILS RELATIVE PERCENT (BEAKER) (test 87 % ugdz=865) LYMPHOCYTES RELATIVE PERCENT (BEAKER) (test 7 % kfir=936) MONOCYTES RELATIVE PERCENT (BEAKER) (test 6 % fvgx=187) EOSINOPHILS RELATIVE PERCENT (BEAKER) (test 0 % uxlx=830) BASOPHILS RELATIVE PERCENT (BEAKER) (test 0 % tnqq=988) NEUTROPHILS ABSOLUTE COUNT (BEAKER) (test 12.40 K/ L 1.80-8.00 pltt=083) LYMPHOCYTES ABSOLUTE COUNT (BEAKER) (test 1.06 K/ L 1.48-4.50 hwqk=362) MONOCYTES ABSOLUTE COUNT (BEAKER) (test 0.81 K/ L 0.00-1.30 hnhk=778) EOSINOPHILS ABSOLUTE COUNT (BEAKER) (test 0.01 K/ L 0.00-0.50 ymmf=953) BASOPHILS ABSOLUTE COUNT (BEAKER) (test 0.03 K/ L 0.00-0.20 dqek=963) [id number]-GLUCOSE [id number] 22:17:00 Test Item Value Reference Range Comments POC-GLUCOSE METER (BEAKER) 260 mg/dL 70-110 TESTED AT [address] (test rwaq=5716) [facility] [address] POCT-GLUCOSE [id number] 12:11:00 Test Item Value Reference Range Comments POC-GLUCOSE METER (BEAKER) 278 mg/dL 70-110 TESTED AT [address] (test gjgc=5312) [facility] [address] HEMOGLOBIN [id number] 10:46:00 Test Item Value Reference Range Comments HEMOGLOBIN A1C (BEAKER) (test iwcx=837) 9.7 % 4.3-6.1 DC\S\Delta Check\S\NONEPOCT-GLUCOSE [id number] 07:15:00 Test Item Value Reference Range Comments POC-GLUCOSE METER (BEAKER) 283 mg/dL 70-110 TESTED AT [address] (test vdbb=9358) [facility] [address] BASIC METABOLIC [id number] 04:43:00 Test Item Value Reference Range Comments SODIUM (BEAKER) (test 136 meq/L 136-145 lqcc=754) POTASSIUM (BEAKER) (test 4.0 meq/L 3.5-5.1 hbzb=405) CHLORIDE (BEAKER) (test 102 meq/L 98-107 urum=814) CO2 (BEAKER) (test 27 meq/L 22-29 qapx=041) BLOOD UREA NITROGEN 18 mg/dL 7-21 (BEAKER) (test nstt=344) CREATININE (BEAKER) (test 0.95 mg/dL 0.57-1.25 gecy=857) GLUCOSE RANDOM (BEAKER) 256 mg/dL 70-105 (test gpqc=717) CALCIUM (BEAKER) (test 9.0 mg/dL 8.4-10.2 amee=297) EGFR (BEAKER) (test 71 mL/min/1.73 sq m ESTIMATED GFR IS NOT frwr=8400) ACCURATE CREATININE CLEARANCE IN PREDICTING GLOMERULAR FILTRATION RATE. ESTIMATED GFR IS NOT APPLICABLE FOR DIALYSIS PATIENTS. CBC WITH PLATELET COUNT + MANUAL [id number] 04:28:00 Test Item Value Reference Range Comments WHITE BLOOD CELL COUNT (BEAKER) (test nvwn=443) 11.6 K/ L 4.0-10.0 RED BLOOD CELL COUNT (BEAKER) (test qzli=475) 4.15 M/ L 4.00-5.00 HEMOGLOBIN (BEAKER) (test gxms=169) 13.3 GM/DL 12.0-15.0 HEMATOCRIT (BEAKER) (test avmj=424) 40.5 % 36.0-45.0 MEAN CORPUSCULAR VOLUME (BEAKER) (test bcwg=502) 97.6 fL 82.0-99.0 MEAN CORPUSCULAR HEMOGLOBIN (BEAKER) (test 32.1 pg 27.0-33.0 yjqq=036) MEAN CORPUSCULAR HEMOGLOBIN CONC (BEAKER) (test 32.9 GM/DL 32.0-36.0 hsqn=686) RED CELL DISTRIBUTION WIDTH (BEAKER) (test 12.7 % 10.3-14.2 akqs=259) PLATELET COUNT (BEAKER) (test kkuw=123) 263 K/CU MM 150-430 MEAN PLATELET VOLUME (BEAKER) (test ytlp=746) 8.2 fL 6.5-10.5 NUCLEATED RED BLOOD CELLS (BEAKER) (test 0 /100 WBC 0-0 frgx=601) NEUTROPHILS RELATIVE PERCENT (BEAKER) (test 90 % nixl=205) LYMPHOCYTES RELATIVE PERCENT (BEAKER) (test 8 % zsun=276) MONOCYTES RELATIVE PERCENT (BEAKER) (test 2 % mtyy=727) EOSINOPHILS RELATIVE PERCENT (BEAKER) (test 0 % bysd=470) BASOPHILS RELATIVE PERCENT (BEAKER) (test 0 % eych=638) NEUTROPHILS ABSOLUTE COUNT (BEAKER) (test 10.40 K/ L 1.80-8.00 xthg=276) LYMPHOCYTES ABSOLUTE COUNT (BEAKER) (test 0.95 K/ L 1.48-4.50 hvdt=579) MONOCYTES ABSOLUTE COUNT (BEAKER) (test 0.20 K/ L 0.00-1.30 cotl=696) EOSINOPHILS ABSOLUTE COUNT (BEAKER) (test 0.02 K/ L 0.00-0.50 xnrs=162) BASOPHILS ABSOLUTE COUNT (BEAKER) (test 0.02 K/ L 0.00-0.20 ungz=811) 0.00PT/[id number] 04:25:00 Test Item Value Reference Range Comments PROTIME (BEAKER) (test dmne=927) 13.7 seconds 11.7-14.7 INR (BEAKER) (test oqvg=075) 1.1 <=5.9 PARTIAL THROMBOPLASTIN TIME (BEAKER) (test 32.8 seconds 22.5-36.0 taaw=143) RECOMMENDED COUMADIN/WARFARIN INR THERAPY RANGESSTANDARD DOSE: 2.0 - 3.0 Includes: PROPHYLAXIS forvenous thrombosis, systemic embolization; TREATMENT for venous thrombosis and/or pulmonary embolus.HIGH RISK: Target INR is 2.5-3.5 for patients with mechanical heart valves.POCT-GLUCOSE [id number] 02:47:00 Test Item Value Reference Range Comments POC-GLUCOSE METER (BEAKER) 278 mg/dL 70-110 TESTED AT [facility] [address] (test tdri=3329) [facility] [address] POCT-GLUCOSE [id number] 22:12:00 Test Item Value Reference Range Comments POC-GLUCOSE METER (BEAKER) 258 mg/dL 70-110 TESTED AT [facility] [address] (test hidq=8205) [place] [address] [id number] 15:44:00 Test Item Value Reference Range Comments MAGNESIUM (BEAKER) (test 2.1 mg/dL 1.6-2.6 Specimen slightly hemolyzed bxou=476) [id number] 15:44:00 Test Item Value Reference Range Comments PHOSPHORUS (BEAKER) (test 2.9 mg/dL 2.3-4.7 Specimen slightly hemolyzed ailp=025) BASIC METABOLIC [id number] 15:44:00 Test Item Value Reference Range Comments SODIUM (BEAKER) (test 137 meq/L 136-145 raub=940) POTASSIUM (BEAKER) (test 4.4 meq/L 3.5-5.1 Specimen slightly tblv=019) hemolyzed CHLORIDE (BEAKER) (test 99 meq/L 98-107 dwqf=580) CO2 (BEAKER) (test 27 meq/L 22-29 mkcv=963) BLOOD UREA NITROGEN 13 mg/dL 7-21 (BEAKER) (test nqps=247) CREATININE (BEAKER) (test 0.96 mg/dL 0.57-1.25 Specimen slightly fjbt=961) hemolyzed GLUCOSE RANDOM (BEAKER) 250 mg/dL 70-105 (test ruyp=595) CALCIUM (BEAKER) (test 9.6 mg/dL 8.4-10.2 hebz=491) EGFR (BEAKER) (test 70 mL/min/1.73 sq m ESTIMATED GFR IS NOT phdr=7012) ACCURATE CREATININE CLEARANCE IN PREDICTING GLOMERULAR FILTRATION RATE. ESTIMATED GFR IS NOT APPLICABLE FOR DIALYSIS PATIENTS. CBC WITH PLATELET COUNT + MANUAL [id number] 15:39:00 Test Item Value Reference Range Comments WHITE BLOOD CELL COUNT (BEAKER) (test rjop=606) 9.5 K/ L 4.0-10.0 RED BLOOD CELL COUNT (BEAKER) (test etee=037) 4.18 M/ L 4.00-5.00 HEMOGLOBIN (BEAKER) (test wkvk=273) 14.0 GM/DL 12.0-15.0 HEMATOCRIT (BEAKER) (test upve=273) 40.7 % 36.0-45.0 MEAN CORPUSCULAR VOLUME (BEAKER) (test ygev=604) 97.3 fL 82.0-99.0 MEAN CORPUSCULAR HEMOGLOBIN (BEAKER) (test 33.4 pg 27.0-33.0 jktt=263) MEAN CORPUSCULAR HEMOGLOBIN CONC (BEAKER) (test 34.3 GM/DL 32.0-36.0 fdfj=637) RED CELL DISTRIBUTION WIDTH (BEAKER) (test 12.6 % 10.3-14.2 fxke=508) PLATELET COUNT (BEAKER) (test iqyf=211) 253 K/CU MM 150-430 MEAN PLATELET VOLUME (BEAKER) (test popc=222) 8.1 fL 6.5-10.5 NUCLEATED RED BLOOD CELLS (BEAKER) (test 0 /100 WBC 0-0 xfzu=995) NEUTROPHILS RELATIVE PERCENT (BEAKER) (test 91 % uxdd=137) LYMPHOCYTES RELATIVE PERCENT (BEAKER) (test 8 % gujl=780) MONOCYTES RELATIVE PERCENT (BEAKER) (test 1 % tpkj=501) EOSINOPHILS RELATIVE PERCENT (BEAKER) (test 0 % hmos=619) BASOPHILS RELATIVE PERCENT (BEAKER) (test 0 % midd=824) NEUTROPHILS ABSOLUTE COUNT (BEAKER) (test 8.66 K/ L 1.80-8.00 tuga=017) LYMPHOCYTES ABSOLUTE COUNT (BEAKER) (test 0.78 K/ L 1.48-4.50 hlpu=028) MONOCYTES ABSOLUTE COUNT (BEAKER) (test 0.07 K/ L 0.00-1.30 xdbd=952) EOSINOPHILS ABSOLUTE COUNT (BEAKER) (test 0.01 K/ L 0.00-0.50 ewfo=373) BASOPHILS ABSOLUTE COUNT (BEAKER) (test 0.01 K/ L 0.00-0.20 ckwg=811) [id number] 15:39:00 Test Item Value Reference Range Comments PROTIME (BEAKER) (test lfza=834) 12.7 seconds 11.7-14.7 INR (BEAKER) (test tvmi=530) 1.0 <=5.9 PARTIAL THROMBOPLASTIN TIME (BEAKER) (test 32.8 seconds 22.5-36.0 ljpb=697) RECOMMENDED COUMADIN/WARFARIN INR THERAPY RANGESSTANDARD DOSE: 2.0 - 3.0 Includes: PROPHYLAXIS forvenous thrombosis, systemic embolization; TREATMENT for venous thrombosis and/or pulmonary embolus.HIGH RISK: Target INR is 2.5-3.5 for patients with mechanical heart valves.
[2017-12-08] MEDS ORDERED: IPRATROPIUM BROM 0.5MG/2.5ML ONE ×2 (13:08→21:53)
[2017-12-08] MEDS ORDERED: ALBUTEROL 2.5 MG/3 ML NEB SOL ONE ×2 (13:08→21:53)
[2017-12-08 13:11] LABS: Arterial Blood Carboxyhemoglob 1.7 % (0-1.5); Blood Gas Oxyhemoglobin 78.2 % (94-97); Blood O2 Saturation 80.2 % (92-98.5)
[2017-12-08 13:33] LABS: Absolute Lymphocytes (CBC) 0.5 K/uL (0.7-4.9); Absolute Monocytes 0.2 K/uL (0.1-1.3); Basophils % 0.6 % (0-1.3); Eosinophils % 0.6 % (0-4.4); Hematocrit 26.3 % (36.0-45.0); Lymphocytes % 5.8 % (15.3-44.8); MCH 32.2 pg (27.0-35.0); MCV 98.9 fL (80-100); Monocytes % 2.3 % (3.3-12.3); RBC Red Blood Cell Count 2.65 M/uL (3.86-4.86)
[2017-12-08 13:43] LABS: Protime INR 0.98
[2017-12-08 14:06] LABS: Blood Morphology Comment NOT SEEN (NOT SEEN); Platelet Estimate ADEQ; Urine White Blood Cell Casts OK
--- NOTE | 2017-12-08 14:06 | RAD REPORT ---
EXAM DESCRIPTION: Angy Single View12/08/2017 1:34 pm CLINICAL HISTORY: Shortness of breath COMPARISON: September 2017 FINDINGS: Small bilateral pleural effusions are present. Mild bilateral pulmonary opacities are see n. The heart is moderately enlarged. IMPRESSION: These findings probably represent CHF
[2017-12-08] MEDS ORDERED: ASPIRIN EC 325 MG TABLET PO ONE (14:19)
[2017-12-08] MEDS ORDERED: MAGNESIUM SULFATE 1 gm IVPB 1 GM/100 ML BAG IV ONE (14:34)
[2017-12-08 15:26] LABS: Albumin 3.4 g/dL (3.4-5.0); Bilirubin Direct 0.2 mg/dL (0-0.2); Bilirubin Total 0.4 mg/dL (0.2-1.0); CKMB Creatine Kinase MB 1.4 ng/mL (0.3-3.6); Magnesium 1.8 mg/dL (1.8-2.4); Potassium 3.5 mmol/L (3.5-5.1); Protein, Total 7.4 g/dL (6.4-8.2); Troponin (Emerg Dept Use Only) 0.03 ng/mL (0.0-0.045)
--- NOTE | 2017-12-08 16:03 | ER ---
Nurse's Notes [facility] Name: Christa Ayala Age: 72 yrs Sex: Female : 1945 Arrival Date: 12/08/2017 Time: 12:43 Bed 5 Private MD: Diagnosis: Pulmonary edema;Pleural effusion in other conditions classified elsewhere;Unspecified combined systolic (congestive) and diastolic (congestive) heart failure Presentation: 12/08 12:38 Presenting complaint: EMS states: pt is at home stared having difficult breathing, is tw2 on 3 L nc, she was at 82% , we gave an albuterol treatment and solumedrol 125mg IV, pt went up to 97%, off the non rebreather she did desat to 88%, hypertensive, Hx: HTN, COPD. Transition of care: patient was not received from another setting of care. Onset of symptoms was December 08, 2017. Risk Assessment: Do you want to hurt yourself or someone else? Patient reports no desire to harm self or others. Initial Sepsis Screen: Does the patient meet any 2 criteria? No. Patient's initial sepsis screen is negative. Does the patient have a suspected source of infection? No. Patient's initial sepsis screen is negative. Care prior to arrival: Medication(s) given: Albuterol Neb x 1, solu medrol 125mg IV initiated. 20 GA, in the left antecubital area. 12:38 Method Of Arrival: EMS: [facility] tw2 12:38 Acuity: SONYA 3 tw2 Triage Assessment: 14:00 General: Appears in no apparent distress. well groomed, well developed, well nourished, sg Behavior is calm, cooperative, appropriate for age. Respiratory: Reports shortness of breath cough that is Onset: The symptoms/episode began/occurred today, the patient has moderate shortness of breath. Historical: - Allergies: 12:49 Codeine; tw2 12:49 Iodine; tw2 - PMHx: 12:49 CHF; COPD; Diabetes - NIDDM; Emphysema; enlarged aorta; Hypertension; Myocardial tw2 infarction; - PSHx: 12:49 Hernia repair; Heart stents; tw2 - Immunization history:: Adult Immunizations up to date. - Social history:: Smoking status: Patient/guardian denies using tobacco. - Ebola Screening: : Patient negative for fever greater than or equal to 101.5 degrees Fahrenheit, and additional compatible Ebola Virus Disease symptoms Patient denies exposure to infectious person Patient denies travel to an Ebola-affected area in the 21 days before illness onset No symptoms or risks identified at this time. Screenin:00 Abuse screen: Denies threats or abuse. Denies injuries from another. Nutritional sg screening: No deficits noted. Tuberculosis screening: No symptoms or risk factors identified. Never had TB. Fall Risk None identified. Assessment: 13:00 General: Appears in no apparent distress. uncomfortable, well groomed, well developed, sg well nourished, Behavior is calm, cooperative, appropriate for age. Pain: Denies pain. Neuro: Level of Consciousness is awake, alert, obeys commands, Oriented to person, place, time, Cylinder Filler are equal bilaterally Moves all extremities. Full function Speech is normal, Facial symmetry appears normal. Cardiovascular: Patient's skin is warm and dry. Chest pain is denied. Respiratory: Airway is patent Respiratory effort is even, unlabored, Respiratory pattern is symmetrical, tachypnea Breath sounds are coarse. GI: Abdomen is round non-distended. : No signs and/or symptoms were reported regarding the genitourinary system. EENT: No signs and/or symptoms were reported regarding the EENT system. Derm: Skin is intact, is healthy with good turgor, Skin is dry, Skin is normal, Skin temperature is warm. Musculoskeletal: No signs and/or symptoms reported regarding the musculoskeletal system. 15:46 Reassessment: Patient appears in no apparent distress at this time. Patient and/or sg family updated on plan of care and expected duration. Pain level reassessed. Patient is alert, oriented x 3, equal unlabored respirations, skin warm/dry/pink. pt requesting food tray at this time, no food tray has been delivered, pt stated understanding Patient states feeling better. 17:25 Reassessment: Patient appears in no apparent distress at this time. Patient and/or sg family updated on plan of care and expected duration. Pain level reassessed. Patient is alert, oriented x 3, equal unlabored respirations, skin warm/dry/pink. pt given Renal Diet, pt tolerated well, will continue to monitor. 18:00 Reassessment: Patient appears in no apparent distress at this time. Patient and/or jl7 family updated on plan of care and expected duration. Pain level reassessed. Patient is alert, oriented x 3, equal unlabored respirations, skin warm/dry/pink. Patient states feeling better. Vital Signs: 12:45 BP 145 / 93; Pulse 106; Resp 20; Temp 96.2(TE); Pulse Ox 98% on 3 lpm NC; Pain 0/10; tw2 13:30 BP 137 / 86; Pulse 98; Resp 19 S; Pulse Ox 99% on R/A; sg 14:30 BP 141 / 86; Pulse 100; Resp 19; Pulse Ox 98% on 3 lpm NC; sg 15:15 BP 135 / 90; Pulse 90; Resp 20; Pulse Ox 99% on 3 lpm NC; sg 17:41 BP 132 / 89; Pulse 92; Resp 18; Temp 97.2; Pulse Ox 99% on 3 lpm NC; Pain 0/10; sg ED Course: 12:43 Patient arrived in ED. tw2 12:45 Triage completed. tw2 12:47 Arm band placed on. tw2 12:50 Antonio Camacho PA is PHCP. cp 12:50 Molina Dill MD is Attending Physician. cp 13:16 EKG done, by nuclear medicine chief technologist. reviewed by Antonio GIORDANO. dt2 13:17 Tyron Gonzalez, RN is Primary Nurse. sg 13:30 Patient has correct armband on for positive identification. Bed in low position. Call sg light in reach. Side rails up X2. quarrying specialist on. Pulse ox on. NIBP on. Warm blanket given. Head of bed elevated. 13:35 XRAY CXR (1 view) In Process Unspecified. EDMS 16:01 Kendrick Stevens MD is Hospitalizing Provider. cp 17:30 No provider procedures requiring assistance completed. sg 18:10 Patient admitted, IV remains in place. intact, No redness/swelling at site. sg Administered Medications: 13:05 Drug: Albuterol 2.5 mg {Note: administered by MACHINE TOOL MECHANIC.} Route: Inhalation; sg 13:25 Drug: Albuterol 2.5 mg Route: Inhalation; jl7 13:45 Drug: Albuterol 2.5 mg Route: Inhalation; jl7 14:33 Drug: Magnesium Sulfate 1 grams Route: IVPB; Infused Over: 1 hrs; Site: left jl7 antecubital; 15:38 Follow up: Response: No adverse reaction; IV Status: Completed infusion sg 14:34 Drug: Aspirin 325 mg Route: PO; jl7 16:09 Follow up: Response: No adverse reaction 16:09 Drug: Lasix 40 mg Route: IVP; Site: left antecubital; sg Outcome: 16:02 Decision to Hospitalize by Provider. cp 17:40 Admitted to Tele accompanied by tech, via stretcher, room 410, with chart, Report sg called to Grace MITCHELL 17:40 Condition: stable 17:40 Instructed on the need for admit, safety practices, Demonstrated understanding of instructions. 18:09 Patient left the ED. sg Signatures: Dispatcher [employer] EDMS Tyron Gonzalez RN RN sg Antonio Camacho PA PA cp Wise, Tara RN RN tw2 Calvin Gill RN RN jl7 Zaina Bennett dt2
--- NOTE | 2017-12-08 16:03 | EDPHYS ---
Physician Documentation [facility] Name: Christa Ayala Age: 72 yrs Sex: Female : 1945 Arrival Date: 12/08/2017 Time: 12:43 Bed 5 Private MD: ED Physician Molina Dill HPI: 12/08 12:53 This 72 yrs old Black Female presents to ER via EMS with complaints of Respiratory cp Distress. 12:55 The patient has shortness of breath at rest. cp 12:55 Onset: The symptoms/episode began/occurred today. Duration: The symptoms are cp continuous, and are steadily getting worse. Associated signs and symptoms: Pertinent negatives: chest pain, productive cough, fever, vomiting. Severity of symptoms: in the emergency department the symptoms have improved mildly. Historical: - Allergies: 12:49 Codeine; tw2 12:49 Iodine; tw2 - PMHx: 12:49 CHF; COPD; Diabetes - NIDDM; Emphysema; enlarged aorta; Hypertension; Myocardial tw2 infarction; - PSHx: 12:49 Hernia repair; Heart stents; tw2 - Immunization history:: Adult Immunizations up to date. - Social history:: Smoking status: Patient/guardian denies using tobacco. - Ebola Screening: : Patient negative for fever greater than or equal to 101.5 degrees Fahrenheit, and additional compatible Ebola Virus Disease symptoms Patient denies exposure to infectious person Patient denies travel to an Ebola-affected area in the 21 days before illness onset No symptoms or risks identified at this time. ROS: 13:00 Constitutional: Negative for body aches, chills, fever, poor PO intake. cp 13:00 Eyes: Negative for injury, pain, redness, and discharge. cp 13:00 ENT: Negative for drainage from ear(s), ear pain, sore throat, difficulty swallowing, difficulty handling secretions. 13:00 Cardiovascular: Positive for edema, Negative for chest pain, palpitations. 13:00 Respiratory: Positive for shortness of breath, at rest. Negative for cough, wheezing. 13:00 Abdomen/GI: Negative for abdominal pain, nausea, vomiting, and diarrhea. 13:00 : Negative for urinary symptoms. 13:00 Skin: Negative for cellulitis, rash. 13:00 Neuro: Negative for altered mental status, dizziness, headache, syncope, weakness. 13:00 All other systems are negative. Exam: 13:05 Constitutional: The patient appears in no acute distress, alert, awake, cp non-diaphoretic, non-toxic, well developed, well nourished. 13:05 Head/Face: Normocephalic, atraumatic. cp 13:05 Eyes: Periorbital structures: appear normal, Conjunctiva: normal, no exudate, no injection, Lids and lashes: appear normal, bilaterally. 13:05 ENT: External ear(s): are unremarkable, Nose: is normal, Mouth: Lips: moist, Oral mucosa: moist, Posterior pharynx: is normal, airway is patent, no erythema, no exudate. 13:05 Chest/axilla: Inspection: normal, Palpation: is normal, no crepitus, no tenderness. 13:05 Cardiovascular: Rate: tachycardic, Rhythm: regular, Edema: ankle edema, that is mild, JVD: is not appreciated. 13:05 Respiratory: the patient does not display signs of respiratory distress, Respirations: labored breathing, is not present, intercostal retractions, are absent, splinting, is not noted, tachypnea, is not appreciated, Breath sounds: rales, that are mild, are heard diffusely, decreased breath sounds, that are mild, throughout, wheezing: is not appreciated. 13:05 Abdomen/GI: Inspection: abdomen appears normal, Bowel sounds: active, all quadrants, Palpation: abdomen is soft and non-tender, in all quadrants. 13:05 Back: pain, is absent, ROM is normal. 13:05 Skin: cellulitis, is not appreciated, no rash present. 13:05 Neuro: Orientation: to person, place \T\ time. Mentation: lucid, able to follow commands, Cerebellar function: is grossly normal, Motor: moves all fours, strength is normal, Sensation: no obvious gross deficits. 13:12 ECG was reviewed by the Attending Physician. cp Vital Signs: 12:45 BP 145 / 93; Pulse 106; Resp 20; Temp 96.2(TE); Pulse Ox 98% on 3 lpm NC; Pain 0/10; tw2 13:30 BP 137 / 86; Pulse 98; Resp 19 S; Pulse Ox 99% on R/A; sg 14:30 BP 141 / 86; Pulse 100; Resp 19; Pulse Ox 98% on 3 lpm NC; sg 15:15 BP 135 / 90; Pulse 90; Resp 20; Pulse Ox 99% on 3 lpm NC; sg 17:41 BP 132 / 89; Pulse 92; Resp 18; Temp 97.2; Pulse Ox 99% on 3 lpm NC; Pain 0/10; sg MDM: 12:50 Patient medically screened. cp 13:00 Differential diagnosis: asthma, Bronchitis CHF exacerbation, Chronic Obstructive cp Pulmonary Disease pneumonia, Pneumothorax pulmonary edema, Pulmonary Embolism Unstable Angina. 16:00 Data reviewed: vital signs, nurses notes, lab test result(s), EKG, radiologic studies, cp plain films, and as a result, I will admit patient. 16:05 Physician consultation: Kendrick Stevens MD was contacted at 15:55, regarding admission, cp to the telemetry unit. patient's condition. 12/08 12:55 Order name: ABG; Complete Time: 14:17 cp 12/08 14:18 Interpretation: Normal except: ABGPH 7.34; ABGPCO2 45.2; ABGPO2 47.9; ABGSO2 80.2; cp UOBU2CZ 78.2; ABGCOHB 1.7; ABGTHB 8.2. 12/08 12:55 Order name: Amylase, Serum; Complete Time: 15:29 cp 12/08 12:55 Order name: Blood Culture Adult (2) cp 12/08 12:55 Order name: BMP; Complete Time: 15:29 cp 12/08 15:29 Interpretation: Normal except: GLUC 153; GFR 49. 12/08 12:55 Order name: CBC with Diff; Complete Time: 14:17 cp 12/08 12:55 Order name: Ckmb; Complete Time: 15:29 cp 12/08 12:55 Order name: CPK; Complete Time: 15:29 cp 12/08 12:55 Order name: Hepatic Function; Complete Time: 15:29 cp 12/08 12:55 Order name: Lipase; Complete Time: 15:29 cp 12/08 12:55 Order name: Magnesium; Complete Time: 15:29 cp 12/08 12:55 Order name: NT PRO-BNP; Complete Time: 15:29 cp 12/08 15:30 Interpretation: Abnormal: NT PRO-BNP 36127. 12/08 12:55 Order name: PT-INR; Complete Time: 14:17 cp 12/08 12:55 Order name: Ptt, Activated; Complete Time: 14:17 cp 12/08 12:55 Order name: Troponin (emerg Dept Use Only); Complete Time: 15:29 cp 12/08 15:30 Interpretation: Within normal limits: TROPED 0.03. cp 12/08 12:55 Order name: XRAY CXR (1 view); Complete Time: 14:17 cp 12/08 13:42 Order name: CBC Smear Scan; Complete Time: 14:17 EDMS 12/08 16:45 Order name: Echo with Doppler EDMS 12/08 16:45 Order name: Basic Metabolic Panel EDMS 12/08 16:45 Order name: Basic Metabolic Panel EDMS 12/08 16:45 Order name: CBC with Automated Diff EDMS 12/08 16:45 Order name: CBC with Automated Diff EDMS 12/08 16:45 Order name: NT PRO-BNP EDMS 12/08 16:45 Order name: NT PRO-BNP EDMS 12/08 16:45 Order name: Troponin I EDMS 12/08 16:45 Order name: Troponin I EDMS 12/08 16:45 Order name: Troponin I EDMS 12/08 12:55 Order name: EKG; Complete Time: 12:56 cp 12/08 12:55 Order name: Cardiac monitoring; Complete Time: 13:28 cp 12/08 12:55 Order name: EKG - Nurse/Tech; Complete Time: 13:28 cp 12/08 12:55 Order name: IV Saline Lock; Complete Time: 13:28 cp 12/08 12:55 Order name: Labs collected and sent; Complete Time: 13:28 cp 12/08 12:55 Order name: O2 Per Protocol; Complete Time: 13:28 cp 12/08 12:55 Order name: O2 Sat Monitoring; Complete Time: 13:28 cp 12/08 14:52 Order name: Diet Regular; Complete Time: 14:53 jl7 12/08 15:45 Order name: Diet 2 Gm Sodium; Complete Time: 15:46 cp EC:12 Rate is 98 beats/min. Rhythm is regular. ME interval is normal. QRS interval is normal. cp QT interval is prolonged at 384 msec. Interpreted by me. Reviewed by me. Administered Medications: 13:05 Drug: Albuterol 2.5 mg {Note: administered by OCCUPATIONAL SAFETY AND HEALTH MANAGER.} Route: Inhalation; 13:25 Drug: Albuterol 2.5 mg Route: Inhalation; 7 13:45 Drug: Albuterol 2.5 mg Route: Inhalation; jl7 14:33 Drug: Magnesium Sulfate 1 grams Route: IVPB; Infused Over: 1 hrs; Site: left 7 antecubital; 15:38 Follow up: Response: No adverse reaction; IV Status: Completed infusion sg 14:34 Drug: Aspirin 325 mg Route: PO; 7 16:09 Follow up: Response: No adverse reaction sg 16:09 Drug: Lasix 40 mg Route: IVP; Site: left antecubital; Disposition: 18:36 Co-signature as Attending Physician, Molina Dill MD I agree with the assessment and kdr plan of care. Disposition: 12/08/17 16:02 Hospitalization ordered by Kendrick Stevens for Inpatient Admission. Preliminary diagnosis are Pulmonary edema, Pleural effusion in other conditions classified elsewhere, Unspecified combined systolic (congestive) and diastolic (congestive) heart failure. - Bed requested for Telemetry/MedSurg (Inpatient). - Status is Inpatient Admission. sg - Condition is Stable. - Problem is an acute exacerbation. - Symptoms have improved. UTI on Admission? No Signatures: Dispatcher [employer] EDMS Yumiko Cordero Steven, RN RN Molina Dill MD MD [facility] Antonio Camacho PA PA cp Marcie Garcia, PAULA RN tw2 Calvin Gill RN RN jl7 Corrections: (The following items were deleted from the chart) 17:29 16:02 Hospitalization Ordered by Kendrick Stevens MD for Inpatient Admission. Preliminary bd diagnosis is Pulmonary edema; Pleural effusion in other conditions classified elsewhere; Unspecified combined systolic (congestive) and diastolic (congestive) heart failure. Bed requested for Telemetry/MedSurg (Inpatient). Status is Inpatient Admission. Condition is Stable. Problem is an acute exacerbation. Symptoms have improved. UTI on Admission? No. cp 18:09 17:29 12/08/2017 16:02 Hospitalization Ordered by Kendrick Stevens MD for Inpatient sg Admission. Preliminary diagnosis is Pulmonary edema; Pleural effusion in other conditions classified elsewhere; Unspecified combined systolic (congestive) and diastolic (congestive) heart failure. Bed requested for Telemetry/MedSurg (Inpatient). Status is Inpatient Admission. Condition is Stable. Problem is an acute exacerbation. Symptoms have improved. UTI on Admission? No. bd
[2017-12-08] MEDS ORDERED: IPRATROPIUM BROM 0.5MG/2.5ML NEB PRN (16:41)
[2017-12-08] MEDS ORDERED: ACETAMINOPHEN 500 MG TAB PO PRN (16:41)
[2017-12-08] MEDS ORDERED: ONDANSETRON 4 MG/2 ML VIAL IV PRN (16:41)
[2017-12-08] MEDS ORDERED: ALBUTEROL 2.5 MG/3 ML NEB SOL NEB PRN (16:41)
[2017-12-08] MEDS: FUROSEMIDE 40 MG/4 ML VIAL IV SCH (17:00)
[2017-12-08] MEDS ORDERED: FUROSEMIDE 40 MG/4 ML VIAL ONE (17:12)
[2017-12-08] MEDS ORDERED: GLUCAGON 1 MG/VIAL IM PRN (22:32)
[2017-12-08] MEDS ORDERED: D50W 25 GM/50 ML SYRINGE IV PRN (22:32)
[2017-12-08] MEDS: INSULIN -REGULAR HUMAN 50 UNIT/0.5 ML ML SQ SCH (23:15)
[2017-12-09] MEDS ORDERED: FUROSEMIDE 40 MG/4 ML VIAL IV ONE
[2017-12-09] MEDS: IPRATROPIUM BROM 0.5MG/2.5ML NEB SCH ×4 (02:47→21:12)
[2017-12-09] MEDS: ALBUTEROL 2.5 MG/3 ML NEB SOL NEB SCH ×4 (02:47→21:12)
[2017-12-09 05:47] LABS: Urine Appearance CLEAR; Urine Bilirubin NEGATIVE (NEG); Urine Blood NEGATIVE (NEG); Urine Color YELLOW; Urine Glucose NEGATIVE (NEG); Urine Protein NEGATIVE (NEG); Urine Urobilinogen 0.2 mg/dL (0.2-1.0)
[2017-12-09 05:48] LABS: Urine Microscopic Reflex NO UMIC
[2017-12-09 05:53] LABS: Absolute Lymphocytes (CBC) 0.4 K/uL (0.7-4.9); Absolute Monocytes 0.6 K/uL (0.1-1.3); Absolute Neutrophil 5.1 K/uL (1.8-8.0); Basophils % 0.2 % (0-1.3); Hematocrit 22.5 % (36.0-45.0); Lymphocytes % 6.7 % (15.3-44.8); MCH 32.8 pg (27.0-35.0); MCV 95.5 fL (80-100); MPV 8.2 fL (7.6-11.3); Monocytes % 9.4 % (3.3-12.3); RBC Red Blood Cell Count 2.36 M/uL (3.86-4.86)
[2017-12-09 06:21] LABS: Potassium 3.1 mmol/L (3.5-5.1)
[2017-12-09 06:40] VITALS: BMI 23.7
[2017-12-09] MEDS: INSULIN -REGULAR HUMAN 50 UNIT/0.5 ML ML SQ SCH ×4 (07:30→21:00)
--- NOTE | 2017-12-09 07:36 | EKG ---
Test Date: 2017-12-08 Test Time: 13:06:46 Resources Representative: NICOLASA MEASUREMENT RESULTS: Intervals: Rate: 98 WI: 188 QRSD: 98 QT: 384 QTc: 490 [place]: P: 40 WI: 188 QRS: 9 T: 48 INTERPRETIVE STATEMENTS: Normal sinus rhythm Possible Left atrial enlargement Nonspecific T wave abnormality Prolonged QT Abnormal ECG Compared to ECG 09/30/2017 12:00:45 T-wave abnormality now present Prolonged QT interval now present Sinus tachycardia no longer present Myocardial infarct finding no longer present ST (T wave) deviation no longer present Possible ischemia no longer present Electronically Signed On 12-09-17 07:34:22 CDT by Vitaliy Hook
[2017-12-09] MEDS ORDERED: NA CHLORIDE 0.9% 250 ML IV SCH (08:00)
[2017-12-09] MEDS: METFORMIN HCL 500 MG TAB PO SCH ×2 (08:36→17:58)
[2017-12-09] MEDS: FUROSEMIDE 40 MG/4 ML VIAL IV SCH ×2 (08:37→17:57)
[2017-12-09] MEDS ORDERED: METFORMIN HCL 1000 MG PO SCH (09:00)
[2017-12-09] MEDS ORDERED: ALBUTEROL 2.5 MG/3 ML NEB SOL NEB SCH (09:00)
[2017-12-09] MEDS ORDERED: IPRATROPIUM BROM 0.5MG/2.5ML NEB SCH (09:00)
[2017-12-09] MEDS ORDERED: METOPROLOL TAR 25 MG TAB PO SCH (09:00)
[2017-12-09] MEDS: CLOPIDOGREL 75 MG TABLET PO SCH (11:17)
[2017-12-09] MEDS: ASPIRIN 81 MG CHEWABLE TABLET PO SCH (11:18)
[2017-12-09] MEDS: ESCITALOPRAM 20 MG TAB PO SCH (11:18)
--- NOTE | 2017-12-09 12:35 | ECHO ---
HEIGHT: 5 ft 6 in WEIGHT: 147 lb 0 oz DATE OF STUDY: 12/09/[address]: Antonio Camacho PAC 2-DIMENSIONAL: YES M.MODE: YES DOPPLER: YES COLOR FLOW: YES TDS: NO PORTABLE: NO DEFINITY: NO BUBBLE STUDY: NO DIAGNOSIS: CONGESTIVE HEART FAILURE CARDIAC HISTORY: CATHERIZATION: YES SURGERY: NO PROSTHETIC VALVE: NO PACEMAKER: NO MEASUREMENTS (cm) DIASTOLIC (NORMALS) SYSTOLIC (NORMALS) IVSd 1.2 (0.6-1.2) LA Diam 3.8 (1.9-4.0) LVEF 30-35% LVIDd 5.3 (3.5-5.7) LVIDs 4.3 (2.0-3.5) %FS % LVPWd 1.3 (0.6-1.2) Ao Diam 3.0 (2.0-3.7) 2 DIMENSIONAL ASSESSMENT: RIGHT ATRIUM: NORMAL LEFT ATRIUM: NORMAL RIGHT VENTRICLE: NORMAL LEFT VENTRICLE: NORMAL SIZE TRICUSPID VALVE: NORMAL MITRAL VALVE: MITRAL ANNULAR CALCIFICATION PULMONIC VALVE: NORMAL AORTIC VALVE: SCLEROSIS PERICARDIAL EFFUSION: NONE AORTIC ROOT: NORMAL LEFT VENTRICULAR WALL MOTION: MODERATE TO SEVERE GLOBAL HYPOKINESIS. DOPPLER/COLOR FLOW: MILD MITRAL AND TRICUSPID REGURGITATION. COMMENTS: MILD MITRAL AND TRICUSPID REGURGITATION. MODERATE TO SEVERE GLOBAL HYPOKINESIS. LEFT VENTRICULAR EJECTION FRACTION 30-35%. TECHNOLOGIST: Juanito CLARKE
--- NOTE | 2017-12-09 15:25 | P.CNS ---
Date of Consult: 12/09/17 Reason for Consult: Shortness of breath Chief Complaint: Shortness of breath History of Present Illness: Patient is 72 years of age admitted with the acute onset of shortness of breath she was in [facility] recently had a stent placed diagnosed with congestive heart failure patient has been progressively declining over the past 6-7 months prior to that she was very functional quit smoking 3 years ago feeling better he has congestive heart failure presume COPD she is not on any diuretic Allergies iodine Allergy (Mild, Verified 04/23/17 10:11) Itching/Hives/Rash codeine Adverse Reaction (Intermediate, Verified 04/23/17 10:11) Hives/Rash Home Medications: Clopidogrel Bisulfate [Plavix*] 75 mg PO DAILY 10/12/12 Metformin HCl [Glucophage*] 1,000 mg PO BID 10/12/12 Metoprolol Tartrate [Lopressor*] 25 mg PO BID 10/12/12 Aspirin Chewable [Aspirin Chewable*] 81 mg PO DAILY 04/23/17 Escitalopram Oxalate [Lexapro] 10 mg PO DAILY 09/30/17 Atorvastatin Calcium [Lipitor] 40 mg PO BEDTIME #30 tab 10/04/17 Clonidine HCl [Catapres] 0.1 mg PO Q4H PRN 12/08/17 Ondansetron [Zofran] 4 mg PO Q4H PRN 12/08/17 - Past Medical/Surgical History Diabetic: Yes -: HTN -: HIGH CHOLESTROL -: Diabetes -: COPD -: Chest Pain (2013) -: CHF -: HIATAL HERNIA -: AORTA ANEURYSM -: 2 cardiac stents (2010) - Family History Father Medical History: Heart disease Mother Medical History: Diabetes Sister Medical History: Diabetes - Social History Smoking Status: Unknown if ever smoked Alcohol use: Yes CD- Drugs: No Caffeine use: Yes Place of Residence: Home Review of Systems 10-point ROS is otherwise unremarkable General: Weakness Respiratory: Shortness of Breath Physical Examination Temp Pulse Resp BP Pulse Ox 97.6 F 101 H 20 142/84 H 98 12/09/17 12:00 12/09/17 12:00 12/09/17 12:00 12/09/17 12:00 12/09/17 12:00 General: Oriented x3 HEENT: Atraumatic Neck: Supple Respiratory: Diminished Cardiovascular: No edema, Normal S1 S2 Gastrointestinal: Normal bowel sounds, Soft and benign, Non-distended Musculoskeletal: No clubbing, No swelling Integumentary: No rashes, No breakdown Laboratory Data (last 24 hrs) 12/08/17 13:20: Sodium 142, Potassium 3.5, BUN 12, Creatinine 1.30, Glucose 153 H, Magnesium 1.8, Total Bilirubin 0.4, AST 16, ALT 12, Alkaline Phosphatase 80, Amylase 64, Lipase 66 L Conclusions/Impression: Patient is 72 years of age admitted with shortness of breath she has congestive heart failure presumed COPD BNP was significantly elevated in addition patient was hypoxic hypercapnic by ABGs renal insufficiency anemic diminished ejection fraction patient's saturation satisfactory agree with Lasix she will need bronchodilators at home patient's BNP is also significantly elevated patient has cardiomegaly bilateral blunting of costophrenic angles presumed pleural effusions doubt infection daily room air pulse ox at some prednisone brought Wanna she will need bronchodilators at home patient does have a hyperinflated chest
[2017-12-09] MEDS: METOPROLOL TAR 25 MG TAB PO SCH (18:40)
[2017-12-09] MEDS: ARFORMOTEROL TARTRATE 15 MCG/2 ML VIAL.NEB NEB SCH (21:12)
[2017-12-09] MEDS: predniSONE 20 MG TAB PO SCH (21:52)
[2017-12-09] MEDS ORDERED: SACUBITRIL/VALSARTAN 24/26 MG TAB PO SCH (22:00)
[2017-12-10] MEDS: IPRATROPIUM BROM 0.5MG/2.5ML NEB SCH ×4 (04:00→22:03)
[2017-12-10] MEDS: ALBUTEROL 2.5 MG/3 ML NEB SOL NEB SCH ×4 (04:00→22:02)
[2017-12-10] MEDS: METOPROLOL TAR 25 MG TAB PO SCH ×2 (05:16→17:11)
[2017-12-10 06:48] LABS: Magnesium 1.6 mg/dL (1.8-2.4); Potassium 3.5 mmol/L (3.5-5.1)
[2017-12-10] MEDS ORDERED: POTASSIUM 25 MEQ EFFERV TAB PO ONE (06:52)
[2017-12-10] MEDS ORDERED: MAGNESIUM SULFATE 1 gm IVPB 1 GM/100 ML BAG IV ONE (06:54)
[2017-12-10 07:21] LABS: Absolute Lymphocytes (CBC) 0.5 K/uL (0.7-4.9); Absolute Monocytes 0.2 K/uL (0.1-1.3); Absolute Neutrophil 9.7 K/uL (1.8-8.0); Basophils % 0.3 % (0-1.3); Eosinophils % 0.1 % (0-4.4); Lymphocytes % 5.2 % (15.3-44.8); MCH 32.5 pg (27.0-35.0); MCV 96.7 fL (80-100); MPV 8.4 fL (7.6-11.3); Monocytes % 1.7 % (3.3-12.3); RBC Red Blood Cell Count 2.89 M/uL (3.86-4.86)
[2017-12-10] MEDS: INSULIN -REGULAR HUMAN 50 UNIT/0.5 ML ML SQ SCH ×5 (07:30→21:00)
[2017-12-10 07:48] LABS: Blood Morphology Comment NOT SEEN (NOT SEEN); Platelet Estimate ADEQ; Urine White Blood Cell Casts OK
[2017-12-10] MEDS: ARFORMOTEROL TARTRATE 15 MCG/2 ML VIAL.NEB NEB SCH ×2 (08:03→22:03)
[2017-12-10] MEDS: METFORMIN HCL 500 MG TAB PO SCH (08:34)
[2017-12-10] MEDS: SACUBITRIL/VALSARTAN 24/26 MG TAB PO SCH ×2 (08:34→20:54)
[2017-12-10] MEDS: ASPIRIN 81 MG CHEWABLE TABLET PO SCH (08:34)
[2017-12-10] MEDS: CLOPIDOGREL 75 MG TABLET PO SCH (08:34)
[2017-12-10] MEDS: ESCITALOPRAM 20 MG TAB PO SCH (08:35)
[2017-12-10] MEDS: FUROSEMIDE 40 MG/4 ML VIAL IV SCH ×2 (08:35→17:09)
[2017-12-10] MEDS: predniSONE 20 MG TAB PO SCH ×2 (08:35→20:54)
--- NOTE | 2017-12-10 09:50 | PN ---
Date of Progress Note: 12/09/2017 Subjective: The patient feels somewhat better since she has been diuresed as far as her breathing is concerned. Discussion was held with Cardiology with implementation of Entresto. I felt it was prob ably valdes to give her 1 unit of packed cells due to the multiplicity of increasing symptomatology she had in regard to her CAD and COPD. Even though her hemoglobin was 7.7, this has been hovering around 8.5 to 9 for a while, and I think this is a good time to give her 1 unit. Perhaps, it will help her overall condition . HR/MODL Voice ID: [id number] Report ID: [id number]
--- NOTE | 2017-12-10 09:50 | HP ---
Date of Admission: 12/08/2017 Chief Complaint: Shortness of breath. History Of Present Illness: The patient presented to the emergency room stating for the past few day s, she has noticed some shortness of breath; however, it became marked; and she became alarmed and pr esented to the emergency room. The patient was actually seen in the office last week and was doing r ather well since her last hospitalization over 6 weeks ago. In fact, she stated she is eating better . Her breathing has been better. She uses the oxygen continuously at 3; and overall, she did see cl inically and symptomatically improved. Past History: The patient has had significant past history in regard to coronary artery disease, [employer], renal failure probably secondary to the dye for scans, has history of aortic aneurysms, hypertensi on, and NIDDM, the latter of which has been controlled fairly well on medication. Social History: The patient states at present she is a nonsmoker. Family History: Noncontributory. Physical Examination: General/Vital Signs: The patient is an elderly female with stable vital signs and some obvious dyspn ea. Head and Neck: Normocephalic. Pupils are equal and reactive to light and accommodation. Fundi nega tive. Trachea midline. Thyroid not palpable. ENT: Negative. Chest: Rales at both bases. Adequate air entry and movement. No use of accessory muscles. Cardiovascular: PMI in the midclavicular line. Heart sounds are normal. Peripheral pulses are pres ent and equal bilaterally. Abdomen: No organomegaly. Bowel sounds are present. Extremities: Slightly dehydrated. Good tone and movement bilaterally. Reflexes are physiologic. Rectal and Pelvic: Deferred. Impression: 1.Acute congestive heart failure episode. 2.chronic obstructive pulmonary disease, chronic. 3.[id number] diabetes mellitus, good control. 4.Hypertension, good control. 5.Coronary artery disease, post stent by history. Plan: The patient will be diuresed. She will be given Lasix every 12 hours. Note that she was give n steroid injection in regard to her chronic obstructive pulmonary disease while en route to the hosp ital. As a result, she had an elevated blood sugar a couple hours after admission. She was therefor e given insulin. Consultations were obtained from Cardiology and Pulmonology. HR/MODL Voice ID: [id number]
--- NOTE | 2017-12-10 09:50 | CON ---
Date of Consultation: 12/09/[address] Stevens's service on 12/08/2017. I saw the patient on 12/09/2017. Reason For Consultation: Congestive heart failure. History Of Present Illness: Ms. Ayala is a 72-year-old black woman. She has a history of chronic systolic congestive heart failure. Last echocardiogram in April 2017 showed an ejection fraction of 27%. She has a history of diabetes that is fairly well controlled; has a history of hypertension that is fairly well controlled; has a history of coronary artery disease, status post PCI. No chest pain reported. She has a history of COPD that is pretty stable. The patient came in mostly with dys pnea on exertion. Chest x-ray showed congestive heart failure. BNP showed 24,965 value. Her troponi n was 0.06. Her creatinine was 1.3. She was severely anemic at 8.5, hypoxic with a pO2 47, pCO2 45, and pH 9.34. Allergies: INCLUDE IODINE AND CODEINE. Review of Systems: Negative. Family History: Positive for heart disease and diabetes. Social History: Negative for tobacco, alcohol, or drug use. Medications: At home include aspirin and Plavix, Lexapro, Zofran, Lipitor, Catapres, metformin, and metoprolol. Physical Examination: General: She was feeling slightly better. Still short of breath. Vital Signs: Stable. Afebrile. Sinus rhythm. HEENT Exam: Negative. Neck: Supple without any lymphadenopathy, JVD, thyromegaly, or bruit. Chest: Clear to auscultation and percussion. Cardiac Exam: Revealed a regular rhythm and rate with an S3 gallops. The patient has bilateral aort ic sclerosis murmur, but no rubs. Abdomen: Benign. Extremities: Revealed no clubbing, cyanosis, or edema. Vascular Examination: Normal with normal pulses in the dorsalis pedis and posterior tibial. Diagnostic Data: Listed earlier. Impression And Plan: 1.Acute exacerbation of chronic systolic congestive heart failure. Ejection fraction 25% to 30%. W e will continue her present regimen. I have discussed the case in detail with Dr. Stevens. I think a transfusion would be adequate for her anemia considering her creatinine elevation and her hypoxia. I think we need to try to start her on Entresto and see if that would help. Continue her present re gimen. Add Lasix to her regimen. Another echocardiogram is pending today. 2.Diabetes, well controlled. 3.Hypertension, well controlled. 4.History of coronary artery disease, status post PCI in the past. Recent negative stress test, jakob l controlled. 5.Chronic obstructive pulmonary disease. 6.Allergy to iodine and codeine. 7.Anemia. 8.Renal insufficiency, stage 3. 9.Depression. PHILL/CHRISTY Voice ID: [id number] Report ID: [id number]
--- NOTE | 2017-12-10 10:19 | RAD REPORT ---
EXAM DESCRIPTION: RAD - Chest Single View - 12/10/2017 9:37 am CLINICAL HISTORY: Follow up CHF Chest pain. COMPARISON: Chest Single View dated 12/08/2017; Chest Single View dated 09/30/2017; Chest Single View d ated 07/18/2017; Chest Single View dated 04/25/2017 FINDINGS: Portable technique limits examination quality. Airspace opacities present in the right lung base, mildly worse than on the comparative study. The he art is moderately enlarged in size with tortuous thoracic aorta. No displaced fractures.Prominent hia francisco hernia. IMPRESSION: Mild worsening right lung base aeration suggesting atelectasis, aspiration or pneumonia.
--- NOTE | 2017-12-10 11:41 | P.PN ---
Subjective Date of Service: 12/10/17 Primary Care Provider: Dr. Stevens Chief Complaint: Shortness of breath Subjective: Other (Patient improved.) Physical Examination - Vital Signs Temperature: 97.1 F Blood Pressure: 141/87 Pulse: 87 Respirations: 18 Pulse Ox (%): 98 - Physical Exam General: Alert, In no apparent distress, Oriented x3, Cooperative HEENT: Atraumatic Neck: Supple Respiratory: Diminished (To the right side), Expiratory wheezes (Bilateral) Cardiovascular: Normal pulses, Regular rate/rhythm Gastrointestinal: Normal bowel sounds, Soft and benign, Non-distended, No tenderness, No masses, No rebound, No guarding Musculoskeletal: No erythema, No tenderness, No warmth Integumentary: No erythema, No warmth, No cyanosis, Tenderness/swelling ( Nonpitting edema to the lower extremities bilateral) Neurological: Normal speech, Normal strength at 5/5 x4 extr, Normal tone, Normal affect - Studies Microbiology Data (last 24 hrs): 12/08/17 13:05 Blood - Blood Anaerobic Blood Culture - Final Medications List Reviewed: Yes Assessment & Plan Discharge Plan: Home Plan to discharge in: 48 Hours Physician Review Additional Text: Impression: Dyspnea secondary to acute on chronic systolic CHF with ejection fraction of about 30% COPD, mild exacerbation with right-sided atelectasis, oxygen-dependent Hypertension Diabetes mellitus type 2 non-insulin dependent Chronic renal disease stage IV Anemia of chronic disease requiring transfusion GERD with hiatal hernia Depression with anxiety Plan: Shortness of breath has improved. This is secondary to acute on chronic systolic CHF with ejection fraction about 30%. Will continue with 1500 cc per day fluid restriction. Patient on IV Lasix. Cardiology has started Entresto. Will continue to monitor renal function. Will continue monitor blood pressure closely as well. Patient with COPD with possible right-sided atelectasis. Will continue with COPD treatment. Will provide incentive spirometer. Patient is oxygen dependent. What physical therapy assess ambulation. Patient with diabetes. Will check A1c. Will continue with sliding scale. Will discontinue metformin due to her chronic renal disease patient has anemia of chronic disease. Patient required transfusion due to low hemoglobin and with exacerbation of CHF. Patient has improved. Will continue with PPI for her GERD. Will continue with her antidepressant medication. Will continue to reassess. Will check chest x-ray tomorrow. Will likely transition to oral medication tomorrow. Consider discharge in the next 1-2 days. Time Spent Managing Pts Care (In Minutes): 55
--- NOTE | 2017-12-10 12:08 | PN ---
Date of Progress Note: 12/10/2017 Ms. Ayala had come in with CHF, that is chronic CHF with an acute exacerbation. Dr. Stevens and I discussed her case yesterday. Seen that her medication do not include Lasix or Entresto. Her creat inine is slightly elevated. I started her on Entresto yesterday 24-26 mg 1 p.o. b.i.d. We will see how she responds to that. We are hoping to keep her hospitalization less from a CHF standpoint. We will follow her creatinine. From my standpoint, she can go home whenever it is okay with Dr. Stevens , and I will see her in the office in the next 2 weeks. We will get a BMP at that point. KRYSTAL Voice ID: [id number] Report ID: [id number]
[2017-12-10] MEDS ORDERED: ENOXAPARIN 30 MG/0.3 ML SQ SCH (17:00)
[2017-12-10] MEDS ORDERED: ATORVASTATIN 40 MG TAB PO SCH (21:00)
[2017-12-11] MEDS: IPRATROPIUM BROM 0.5MG/2.5ML NEB SCH ×2 (01:45→09:32)
[2017-12-11] MEDS: ALBUTEROL 2.5 MG/3 ML NEB SOL NEB SCH ×2 (01:45→09:32)
[2017-12-11 04:31] LABS: Absolute Lymphocytes (CBC) 0.3 K/uL (0.7-4.9); Absolute Monocytes 0.2 K/uL (0.1-1.3); Hematocrit 26.8 % (36.0-45.0); RBC Red Blood Cell Count 2.78 M/uL (3.86-4.86)
[2017-12-11 04:37] LABS: Absolute Neutrophil 7.8 K/uL (1.8-8.0); Basophils % 0.5 % (0-1.3); Lymphocytes % 4.2 % (15.3-44.8); MCH 32.9 pg (27.0-35.0); MCV 96.4 fL (80-100); MPV 9.1 fL (7.6-11.3); Monocytes % 2.5 % (3.3-12.3)
[2017-12-11] MEDS: METOPROLOL TAR 25 MG TAB PO SCH (06:05)
[2017-12-11] MEDS ORDERED: PANTOPRAZOLE 40MG TABLET PO SCH (06:30)
[2017-12-11 06:55] LABS: Magnesium 1.9 mg/dL (1.8-2.4); Potassium 3.8 mmol/L (3.5-5.1)
--- NOTE | 2017-12-11 07:47 | P.DS ---
Admission Date: 12/08/17 Discharge Date: 12/11/17 Primary Care Provider: Dr. Stevens Disposition: ROUTINE DISCHARGE Discharge Condition: GOOD Reason for Admission: Shortness of breath Consultations: Cardiology-Dr. Hook Pulmonary-Dr. Webb Procedures: ECHO: LEFT VENTRICULAR WALL MOTION: MODERATE TO SEVERE GLOBAL HYPOKINESIS. DOPPLER/COLOR FLOW: MILD MITRAL AND TRICUSPID REGURGITATION. COMMENTS: MILD MITRAL AND TRICUSPID REGURGITATION. MODERATE TO SEVERE GLOBAL HYPOKINESIS. LEFT VENTRICULAR EJECTION FRACTION 30-35%. Medical Problem List: Dyspnea secondary to acute on chronic systolic congestive heart failure, ejection fraction 30% COPD exacerbation with history of COPD requiring home oxygen Diabetes mellitus type 2 non insulin dependent, controlled Hypertension, controlled Chronic renal disease, stage IV GERD with hiatal hernia Depression Coronary artery disease with prior stent Hyperlipidemia Atelectasis, right base Brief History of Present Illness: 72-year-old female presented to the emergency room with shortness of breath. Patient was evaluated in emergency room. Patient found to be in acute on chronic congestive heart failure with systolic dysfunction. There was also some component of acute COPD exacerbation. Patient uses home oxygen. The patient was admitted for treatment. Pulmonology and Cardiology consulted. Hospital Course: Patient presented with shortness of breath secondary to acute on chronic CHF, systolic dysfunction, ejection fraction 30%. During the course of her stay medications were adjusted and changed. Patient evaluated by Cardiology. Echocardiogram shows ejection fraction of about 30-35%. Cardiology recommended changes in medications including addition of Entresto and Lasix. Patient responded to medical therapy well. At discharge she will continue with Entresto 24/26 mg 1 pill twice daily and Lasix 40 mg 1 pill twice daily. Patient will need to continue with a 1500 cc per day fluid restriction and low- salt diet. Her renal function will need to be monitored on the her new medication-Entresto and Lasix. Recommendation is the patient follow up with cardiology in 1-2 weeks to monitor progress. Recommendation is to follow up with nephrology as an outpatient to establish care and monitor her renal function on her new medication. Recommendation is to monitor her weight daily. If her weight increases by more than 5 lb she is to contact her PCP or cardiology for further recommendation. Further adjustment in her medication may be required. Patient has COPD. Patient had exacerbation of COPD. Patient also had some atelectasis. Recommendation is to continue with incentive spirometer. Patient evaluated by pulmonology. Patient did well in the course of her stay. Patient uses home oxygen. At discharge she will continue with home oxygen to maintain sats above 90%. Patient currently requiring 2 L per nasal cannula. At discharge she will continue with prednisone 20 mg 1 pill twice daily for 5 days then 1 pill once daily for 5 days. She will continue her prior medications of Advair 250 mcg 1 puff twice daily and Pro air 2 puffs 3 times a day as needed for shortness of breath. Recommendations for the patient follow up with pulmonology in 1-2 weeks to monitor progress. Patient has diabetes. Prior A1c very well controlled. Metformin was discontinued due to chronic renal disease. At discharge she may continue with Amaryl 1 mg daily. Recommendation is to continue with a 2000 ADA diet. Recommendation is to maintain blood sugars less 140 fasting and less than 200 after meals. Further adjustment can be done by her PCP. Patient has chronic renal disease. Renal function remained stable. New medications including Entresto and Lasix may affect her renal function. Recommendation is to monitor her lab-BMP closely. Recommendation is to recheck lab-BMP in 1 week to monitor progress. Recommendation is to establish care with Nephrology to further monitor and address. Recommendation on no further use of nonsteroidal anti-inflammatories. Future medications will need to be renally dosed. Please note metformin has been discontinued. Patient has history of hypertension. Medications have been adjusted. Patient will no longer take clonidine. Patient will continue with metoprolol 25 mg 1 pill twice daily. Recommendation is to maintain blood pressures less 150/80. Further adjustment can be done by her PCP. Patient has anemia of chronic disease. Hemoglobin slightly low during her hospitalization. Patient was given transfusion due to her shortness of breath related to CHF. Hemoglobin has remained stable. This can be further monitored and addressed by her PCP. Recommendation is to recheck lab-CBC in 1-2 weeks to monitor progress. Patient has depression. She may continue with her medication-Lexapro 10 mg daily. Patient has GERD with hiatal hernia. She may continue with medication-Protonix 40 mg 1 pill once daily. Patient with history of CAD with prior stent. Patient may continue with aspirin 81 mg daily and Plavix 75 mg daily. Patient had mild atelectasis. Patient will continue with incentive spirometer. Recommendation to recheck chest x-ray in 2-4 weeks to monitor progress. Vital Signs/Physical Exam: Temp Pulse Resp BP Pulse Ox 97.5 F 95 H 18 173/76 H 94 12/11/17 04:00 12/11/17 06:05 12/11/17 04:00 12/11/17 06:05 12/11/17 04:00 General: Alert, In no apparent distress, Oriented x3, Cooperative HEENT: Atraumatic Neck: Supple Respiratory: Clear to auscultation bilaterally, Normal air movement Cardiovascular: Normal pulses, Regular rate/rhythm Gastrointestinal: Normal bowel sounds, Soft and benign, Non-distended, No tenderness, No masses, No rebound, No guarding Musculoskeletal: No erythema, No tenderness, No warmth Integumentary: No tenderness/swelling, No erythema, No warmth, No cyanosis Neurological: Normal speech, Normal strength at 5/5 x4 extr, Normal tone, Normal affect Lymphatics: No axilla or inguinal lymphadenopathy Laboratory Data at Discharge: WBC 8.4 K/uL (4.3-10.9) D 12/11/17 04:15 Hgb 9.2 g/dL (12.0-15.0) L 12/11/17 04:15 Hct 26.8 % (36.0-45.0) L 12/11/17 04:15 Plt Count 298 K/uL (152-406) 12/11/17 04:15 PT 11.6 SECONDS (9.5-12.5) 12/08/17 13:20 INR 0.98 12/08/17 13:20 APTT 38.2 SECONDS (24.3-36.9) H 12/08/17 13:20 Sodium 137 mmol/L (136-145) 12/11/17 05:36 Potassium 3.8 mmol/L (3.5-5.1) 12/11/17 05:36 BUN 20 mg/dL (7-18) H 12/11/17 05:36 Creatinine 1.40 mg/dL (0.55-1.3) H 12/11/17 05:36 Glucose 190 mg/dL (74-106) H 12/11/17 05:36 Magnesium 1.9 mg/dL (1.8-2.4) 12/11/17 05:36 Total Bilirubin 0.4 mg/dL (0.2-1.0) 12/08/17 13:20 AST 16 U/L (15-37) 12/08/17 13:20 ALT 12 U/L (12-78) 12/08/17 13:20 Alkaline Phosphatase 80 U/L (45-117) 12/08/17 13:20 Troponin I 0.04 ng/mL (0.0-0.045) 12/08/17 21:15 Amylase 64 U/L (25-115) 12/08/17 13:20 Lipase 66 U/L (73-393) L 12/08/17 13:20 Home Medications: Clopidogrel Bisulfate [Plavix*] 75 mg PO DAILY 10/12/12 Metoprolol Tartrate [Lopressor*] 25 mg PO BID 10/12/12 Aspirin Chewable [Aspirin Chewable*] 81 mg PO DAILY 04/23/17 Escitalopram Oxalate [Lexapro] 10 mg PO DAILY 09/30/17 Atorvastatin Calcium [Lipitor] 40 mg PO BEDTIME #30 tab 10/04/17 Ondansetron [Zofran (Odt)*] 4 mg PO Q4H PRN 12/08/17 Albuterol Sulfate [Proair Hfa] 8.5 gm IH TID PRN #1 hfa.aer.ad 12/11/17 Fluticasone/Salmeterol [Advair 250-50 Diskus] 1 each IH BID #1 blst.w.dev Furosemide [Lasix] 40 mg PO BIDL #60 tab 12/11/17 Glimepiride [Amaryl] 1 mg PO DAILY #30 tablet 12/11/17 Pantoprazole [Protonix Tab*] 40 mg PO DAILYAC #30 tab 12/11/17 Sacubitril/Valsartan [Entresto 24 mg-26 mg Tablet] 1 tab PO BID #60 tab predniSONE [Prednisone*] 20 mg PO SEECOM #5 tab 12/11/17 New Medications: Albuterol Sulfate [Proair Hfa] 8.5 gm IH TID PRN #1 hfa.aer.ad PRN Reason: Shortness Of Breath Fluticasone/Salmeterol [Advair 250-50 Diskus] 1 each IH BID #1 blst.w.dev Furosemide [Lasix] 40 mg PO BIDL #60 tab Glimepiride [Amaryl] 1 mg PO DAILY #30 tablet Pantoprazole [Protonix Tab*] 40 mg PO DAILYAC #30 tab predniSONE [Prednisone*] 20 mg PO SEECOM #5 tab Sacubitril/Valsartan [Entresto 24 mg-26 mg Tablet] 1 tab PO BID #60 tab Patient Discharge Instructions: 1. Patient will need to follow up with PCP in 1 week to follow up this hospitalization. 2. Patient presented with shortness of breath secondary to acute on chronic CHF, systolic dysfunction, ejection fraction 30%. During the course of her stay medications were adjusted and changed. Patient evaluated by Cardiology. Echocardiogram shows ejection fraction of about 30-35%. Cardiology recommended changes in medications including addition of Entresto and Lasix. Patient responded to medical therapy well. At discharge she will continue with Entresto 24/26 mg 1 pill twice daily and Lasix 40 mg 1 pill twice daily. Patient will need to continue with a 1500 cc per day fluid restriction and low-salt diet. Her renal function will need to be monitored on the her new medication-Entresto and Lasix. Recommendation is the patient follow up with cardiology in 1-2 weeks to monitor progress. Recommendation is to follow up with nephrology as an outpatient to establish care and monitor her renal function on her new medication. Recommendation is to monitor her weight daily. If her weight increases by more than 5 lb she is to contact her PCP or cardiology for further recommendation. Further adjustment in her medication may be required. Recommendation is to recheck chest x-ray in 2-4 weeks to monitor her progress. 3. Patient has COPD. Patient had exacerbation of COPD. Patient evaluated by pulmonology. Patient did well in the course of her stay. Patient uses home oxygen. She will continue with home oxygen to maintain sats above 90%. Patient currently requiring 2 L per nasal cannula. At discharge she will continue with prednisone 20 mg 1 pill twice daily for 5 days then 1 pill once daily for 5 days. She will continue her prior medications of Advair 250 mcg 1 puff twice daily and Pro air 2 puffs 3 times a day as needed for shortness of breath. Recommendations for the patient follow up with pulmonology in 1-2 weeks to monitor progress. 4. Patient has diabetes. Prior A1c very well controlled. Metformin was discontinued due to chronic renal disease. New medication-Amaryl will be started. At discharge she may continue with Amaryl 1 mg daily. Recommendation is to continue with a 2000 ADA diet. Recommendation is to maintain blood sugars less 140 fasting and less than 200 after meals. Further adjustment can be done by her PCP. 5. Patient has chronic renal disease. Renal function remained stable. New medications including Entresto and Lasix may affect her renal function. Metformin was discontinued due to her renal function. Recommendation is to monitor her lab-BMP closely. Recommendation is to recheck lab-BMP in 1 week to monitor progress. Recommendation is to establish care with Nephrology to further monitor and address. Recommendation on no further use of nonsteroidal anti-inflammatories. Future medications will need to be renally dosed. Patient has history of hypertension. Medications have been adjusted. Patient will no longer take clonidine. Patient will continue with metoprolol 25 mg 1 pill twice daily. Recommendation is to maintain blood pressures less 150/80. Further adjustment can be done by her PCP. 6. Patient has anemia of chronic disease. Hemoglobin slightly low during her hospitalization. Patient was given transfusion due to her shortness of breath related to CHF. Hemoglobin has remained stable. This can be further monitored and addressed by her PCP. Recommendation is to recheck lab-CBC in 1- 2 weeks to monitor progress. 7. Patient has depression. She may continue with her medication-Lexapro 10 mg daily. 8. Patient has GERD with hiatal hernia. She may continue with medication-Protonix 40 mg 1 pill once daily. 9. Patient with history of CAD with prior stent. Patient may continue with aspirin 81 mg daily and Plavix 75 mg daily. 10. Patient had mild atelectasis. Patient will continue with incentive spirometer at home. Diet: ADA Activity: Fall precautions Time spent managing pt's care (in minutes): 55
[2017-12-11] MEDS: INSULIN -REGULAR HUMAN 50 UNIT/0.5 ML ML SQ SCH (08:26)
[2017-12-11] MEDS: FUROSEMIDE 40 MG/4 ML VIAL IV SCH (08:28)
[2017-12-11] MEDS: ESCITALOPRAM 20 MG TAB PO SCH (08:28)
[2017-12-11] MEDS: ASPIRIN 81 MG CHEWABLE TABLET PO SCH (08:28)
[2017-12-11] MEDS: SACUBITRIL/VALSARTAN 24/26 MG TAB PO SCH (08:28)
[2017-12-11] MEDS: CLOPIDOGREL 75 MG TABLET PO SCH (08:28)
[2017-12-11] MEDS: predniSONE 20 MG TAB PO SCH (08:28)
[2017-12-11 08:29] VITALS: BP 141/92
[2017-12-11] MEDS ORDERED: POTASSIUM CL SA 10 MEQ TAB PO ONE (09:00)
[2017-12-11 09:22] VITALS: TEMP 97
[2017-12-11] MEDS: ARFORMOTEROL TARTRATE 15 MCG/2 ML VIAL.NEB NEB SCH (09:32)
[2017-12-11 09:58] VITALS: O2SAT 98
== END 2017-12-11 11:55 | disposition home or self-care (01) | DRG 291 ==
LOC: ER 12:42 → ERHOLD 16:40 → 4TH 17:43
PROVIDERS: ADMIT Family Medicine; ATTEND Family Medicine
PROC: 30233N1 Transfusion of Nonautologous Red Blood Cells into Peripheral Vein, Percutaneous Approach (ICD-10-PCS; principal; 2017-12-09)
DX: I13.0 Hypertensive heart and chronic kidney disease with heart failure and stage 1 through stage 4 chronic kidney disease, or unspecified chronic kidney disease (principal); I50.23 Acute on chronic systolic (congestive) heart failure; N18.4 Chronic kidney disease, stage 4 (severe); J44.1 Chronic obstructive pulmonary disease with (acute) exacerbation; J98.11 Atelectasis; E11.22 Type 2 diabetes mellitus with diabetic chronic kidney disease; K21.9 Gastro-esophageal reflux disease without esophagitis; K44.9 Diaphragmatic hernia without obstruction or gangrene; F32.9 Major depressive disorder, single episode, unspecified; E78.5 Hyperlipidemia, unspecified; I25.10 Atherosclerotic heart disease of native coronary artery without angina pectoris; D63.8 Anemia in other chronic diseases classified elsewhere; Z99.81 Dependence on supplemental oxygen; Z95.5 Presence of coronary angioplasty implant and graft; Z79.84 Long term (current) use of oral hypoglycemic drugs; Z79.02 Long term (current) use of antithrombotics/antiplatelets; Z79.82 Long term (current) use of aspirin; Z79.52 Long term (current) use of systemic steroids; Z88.5 Allergy status to narcotic agent; Z91.041 Radiographic dye allergy status; I25.2 Old myocardial infarction
CPT/HCPCS: 36415; 71045; 80048; 80076; 81003; 82150; 82550; 82553; 82805; 82962; 83690; 83735; 83880; 84484; 85014; 85018; 85025; 85610; 85730; 86850; 86900; 86901; 87040; 87205; 93005; 93306; 96365; 96375; 97163; 99285; J1650; J3475; J7512; J7605; P9016

== ENCOUNTER 2018-02-11 06:38 | Inpatient (IN) | payer OTHER ==
--- OUTSIDE RECORDS SUMMARY | 2018-02-11 06:47 | XMS REPORT ---
:1945 [facility] Address [address] [place] [address] Care Team Providers Name Role Phone BRITTNEY [...] Range Comments B-TYPE NATRIURETIC PEPTIDE (BEAKER) (test kaxl=032) 867 pg/mL 0-100 BASIC METABOLIC [id number] 15:05:00 Test Item Value Reference Range Comments SODIUM (BEAKER) (test 140 meq/L 136-145 ayzi=472) POTASSIUM (BEAKER) (test 4.6 meq/L 3.5-5.1 mwhx=684) CHLORIDE (BEAKER) (test 98 meq/L 98-107 dnkp=886) CO2 (BEAKER) (test 32 meq/L 22-29 pkma=819) BLOOD UREA NITROGEN 30 mg/dL 7-21 (BEAKER) (test sgkn=021) CREATININE (BEAKER) (test 2.58 mg/dL 0.57-1.25 arcn=349) GLUCOSE RANDOM (BEAKER) 105 mg/dL 70-105 (test pvuk=952) CALCIUM (BEAKER) (test 10.3 mg/dL 8.4-10.2 culz=496) EGFR (BEAKER) (test 22 mL/min/1.73 sq m ESTIMATED GFR IS NOT mnvy=5658) ACCURATE CREATININE CLEARANCE IN PREDICTING GLOMERULAR FILTRATION RATE. ESTIMATED GFR IS NOT APPLICABLE FOR DIALYSIS PATIENTS. [id number] 15:02:00 Test Item Value Reference Range Comments MAGNESIUM (BEAKER) (test eeac=902) 2.0 mg/dL 1.6-2.6 POCT-GLUCOSE [id number] 12:40:00 Test Item Value Reference Range Comments POC-GLUCOSE METER (BEAKER) 225 mg/dL 70-110 TESTED AT [address] (test qenm=3650) [place] [id number] POCT-GLUCOSE [id number] 08:32:00 Test Item Value Reference Range Comments POC-GLUCOSE METER (BEAKER) 148 mg/dL 70-110 TESTED AT [address] (test blcs=2755) [place] [id number] BASIC METABOLIC [id number] 05:56:00 Test Item Value Reference Range Comments SODIUM (BEAKER) (test 138 meq/L 136-145 gcyn=679) POTASSIUM (BEAKER) (test 4.0 meq/L 3.5-5.1 jioa=462) CHLORIDE (BEAKER) (test 98 meq/L 98-107 wrzk=244) CO2 (BEAKER) (test 29 meq/L 22-29 cofp=239) BLOOD UREA NITROGEN 14 mg/dL 7-21 (BEAKER) (test iyow=397) CREATININE (BEAKER) (test 1.85 mg/dL 0.57-1.25 umkt=705) GLUCOSE RANDOM (BEAKER) 116 mg/dL 70-105 (test bjrq=446) CALCIUM (BEAKER) (test 9.9 mg/dL 8.4-10.2 syzs=560) EGFR (BEAKER) (test 33 mL/min/1.73 sq m ESTIMATED GFR IS NOT kbgg=4161) ACCURATE CREATININE CLEARANCE IN PREDICTING GLOMERULAR FILTRATION RATE. ESTIMATED GFR IS NOT APPLICABLE FOR DIALYSIS PATIENTS. POCT-GLUCOSE [id number] 21:38:00 Test Item Value Reference Range Comments POC-GLUCOSE METER (BEAKER) 162 mg/dL 70-110 TESTED AT [address] (test pkuy=4422) [facility] [address] POCT-GLUCOSE [id number] 17:02:00 Test Item Value Reference Range Comments POC-GLUCOSE METER (BEAKER) 160 mg/dL 70-110 TESTED AT [address] (test hqbw=3991) [place] [id number] POCT-GLUCOSE [id number] 12:33:00 Test Item Value Reference Range Comments POC-GLUCOSE METER (BEAKER) 163 mg/dL 70-110 TESTED AT [address] (test spqb=2976) [place] [address] POCT-GLUCOSE [id number] 10:33:00 Test Item Value Reference Range Comments POC-GLUCOSE METER (BEAKER) 175 mg/dL 70-110 TESTED AT [address] (test reur=4253) [place] [address] [id number] 04:51:00 Test Item Value Reference Range Comments MAGNESIUM (BEAKER) (test 2.0 mg/dL 1.6-2.6 Specimen slightly hemolyzed kxam=813) BASIC METABOLIC [id number] 04:51:00 Test Item Value Reference Range Comments SODIUM (BEAKER) (test 139 meq/L 136-145 brrj=950) POTASSIUM (BEAKER) (test 3.8 meq/L 3.5-5.1 Specimen slightly ddsv=912) hemolyzed CHLORIDE (BEAKER) (test 99 meq/L 98-107 ctdf=066) CO2 (BEAKER) (test 27 meq/L 22-29 cano=282) BLOOD UREA NITROGEN 14 mg/dL 7-21 (BEAKER) (test azfj=888) CREATININE (BEAKER) (test 1.61 mg/dL 0.57-1.25 Specimen slightly ooif=670) hemolyzed GLUCOSE RANDOM (BEAKER) 139 mg/dL 70-105 (test xzqc=438) CALCIUM (BEAKER) (test 10.0 mg/dL 8.4-10.2 zgoi=427) EGFR (BEAKER) (test 38 mL/min/1.73 sq m ESTIMATED GFR IS NOT saza=0200) ACCURATE CREATININE CLEARANCE IN PREDICTING GLOMERULAR FILTRATION RATE. ESTIMATED GFR IS NOT APPLICABLE FOR DIALYSIS PATIENTS. POCT-GLUCOSE [id number] 21:32:00 Test Item Value Reference Range Comments POC-GLUCOSE METER (BEAKER) 176 mg/dL 70-110 TESTED AT [address] (test mrew=5673) [place] [address] POCT-GLUCOSE [id number] 17:22:00 Test Item Value Reference Range Comments POC-GLUCOSE METER (BEAKER) 232 mg/dL 70-110 TESTED AT [address] (test odat=2645) [place] [id number] POCT-GLUCOSE [id number] 12:47:00 Test Item Value Reference Range Comments POC-GLUCOSE METER (BEAKER) 162 mg/dL 70-110 TESTED AT [address] (test dkci=6159) [place] [id number] POCT-GLUCOSE [id number] 08:15:00 Test Item Value Reference Range Comments POC-GLUCOSE METER (BEAKER) 149 mg/dL 70-110 TESTED AT [address] (test gftj=8546) [place] [address] [id number] 07:05:00 Test Item Value Reference Range Comments MAGNESIUM (BEAKER) (test oqbf=729) 1.9 mg/dL 1.6-2.6 BASIC METABOLIC [id number] 07:05:00 Test Item Value Reference Range Comments SODIUM (BEAKER) (test 136 meq/L 136-145 hepo=539) POTASSIUM (BEAKER) (test 3.8 meq/L 3.5-5.1 ozaf=253) CHLORIDE (BEAKER) (test 98 meq/L 98-107 ueho=027) CO2 (BEAKER) (test 30 meq/L 22-29 lecw=438) BLOOD UREA NITROGEN 14 mg/dL 7-21 (BEAKER) (test igyy=022) CREATININE (BEAKER) (test 1.56 mg/dL 0.57-1.25 ycxj=962) GLUCOSE RANDOM (BEAKER) 129 mg/dL 70-105 (test bxvm=086) CALCIUM (BEAKER) (test 9.8 mg/dL 8.4-10.2 xbva=308) EGFR (BEAKER) (test 40 mL/min/1.73 sq m ESTIMATED GFR IS NOT rxzz=6958) ACCURATE CREATININE CLEARANCE IN PREDICTING GLOMERULAR FILTRATION RATE. ESTIMATED GFR IS NOT APPLICABLE FOR DIALYSIS PATIENTS. POCT-GLUCOSE [id number] 20:56:00 Test Item Value Reference Range Comments POC-GLUCOSE METER (BEAKER) 112 mg/dL 70-110 TESTED AT [address] (test mows=2142) [place] [id number] POCT-GLUCOSE [id number] 17:48:00 Test Item Value Reference Range Comments POC-GLUCOSE METER (BEAKER) 213 mg/dL 70-110 TESTED AT [address] (test fcen=7718) [place] [id number] POCT-GLUCOSE [id number] 11:40:00 Test Item Value Reference Range Comments POC-GLUCOSE METER (BEAKER) 208 mg/dL 70-110 TESTED AT [address] (test iwut=4738) [place] [address] POCT-GLUCOSE [id number] 07:43:00 Test Item Value Reference Range Comments POC-GLUCOSE METER (BEAKER) 144 mg/dL 70-110 TESTED AT [address] (test eewb=2070) [place] [address] [id number] 04:52:00 Test Item Value Reference Range Comments MAGNESIUM (BEAKER) (test 2.0 mg/dL 1.6-2.6 Specimen slightly hemolyzed leui=723) BASIC METABOLIC [id number] 04:52:00 Test Item Value Reference Range Comments SODIUM (BEAKER) (test 133 meq/L 136-145 ogdu=148) POTASSIUM (BEAKER) (test 4.7 meq/L 3.5-5.1 Specimen slightly wyvq=050) hemolyzed CHLORIDE (BEAKER) (test 97 meq/L 98-107 yzou=106) CO2 (BEAKER) (test 25 meq/L 22-29 mpsj=165) BLOOD UREA NITROGEN 17 mg/dL 7-21 (BEAKER) (test akvc=438) CREATININE (BEAKER) (test 1.63 mg/dL 0.57-1.25 Specimen slightly aish=332) hemolyzed GLUCOSE RANDOM (BEAKER) 141 mg/dL 70-105 (test aiwp=577) CALCIUM (BEAKER) (test 9.8 mg/dL 8.4-10.2 ncpp=007) EGFR (BEAKER) (test 38 mL/min/1.73 sq m ESTIMATED GFR IS NOT wyat=9082) ACCURATE CREATININE CLEARANCE IN PREDICTING GLOMERULAR FILTRATION RATE. ESTIMATED GFR IS NOT APPLICABLE FOR DIALYSIS PATIENTS. POCT-GLUCOSE [id number] 21:29:00 Test Item Value Reference Range Comments POC-GLUCOSE METER (BEAKER) 198 mg/dL 70-110 TESTED AT [address] (test wxxg=5511) [place] [address] POCT-GLUCOSE [id number] 17:54:00 Test Item Value Reference Range Comments POC-GLUCOSE METER (BEAKER) 176 mg/dL 70-[address] [facility] [address] [facility] (test clbc=7073) [facility] [address] POCT-GLUCOSE [id number] 07:05:00 Test Item Value Reference Range Comments POC-GLUCOSE METER (BEAKER) 137 mg/dL 70-[address] [facility] [address] [facility] (test bacj=4950) [facility] [address] [id number] 06:53:00 Test Item Value Reference Range Comments MAGNESIUM (BEAKER) (test kksp=383) 2.0 mg/dL 1.6-2.6 BASIC METABOLIC [id number] 05:37:00 Test Item Value Reference Range Comments SODIUM (BEAKER) (test 136 meq/L 136-145 vknm=839) POTASSIUM (BEAKER) (test 3.7 meq/L 3.5-5.1 bokj=370) CHLORIDE (BEAKER) (test 97 meq/L 98-107 vhca=387) CO2 (BEAKER) (test 30 meq/L 22-29 ewcj=488) BLOOD UREA NITROGEN 17 mg/dL 7-21 (BEAKER) (test fktr=042) CREATININE (BEAKER) (test 1.60 mg/dL 0.57-1.25 fxmi=984) GLUCOSE RANDOM (BEAKER) 116 mg/dL 70-105 (test hxhe=911) CALCIUM (BEAKER) (test 9.4 mg/dL 8.4-10.2 hkti=474) EGFR (BEAKER) (test 39 mL/min/1.73 sq m ESTIMATED GFR IS NOT ydqi=3033) ACCURATE CREATININE CLEARANCE IN PREDICTING GLOMERULAR FILTRATION RATE. ESTIMATED GFR IS NOT APPLICABLE FOR DIALYSIS PATIENTS. CBC W/PLT COUNT & AUTO [id number] 05:02:00 Test Item Value Reference Range Comments WHITE BLOOD CELL COUNT (BEAKER) (test xbhi=571) 8.7 K/ L 3.5-10.5 RED BLOOD CELL COUNT (BEAKER) (test aghl=685) 2.43 M/ L 3.93-5.22 HEMOGLOBIN (BEAKER) (test crkc=459) 7.5 GM/DL 11.2-15.7 HEMATOCRIT (BEAKER) (test xxsk=117) 24.1 % 34.1-44.9 MEAN CORPUSCULAR VOLUME (BEAKER) (test trql=103) 99.2 fL 79.4-94.8 MEAN CORPUSCULAR HEMOGLOBIN (BEAKER) (test 30.9 pg 25.6-32.2 aawe=682) MEAN CORPUSCULAR HEMOGLOBIN CONC (BEAKER) (test 31.1 GM/DL 32.2-35.5 hsze=116) RED CELL DISTRIBUTION WIDTH (BEAKER) (test 15.8 % 11.7-14.4 nvzd=712) PLATELET COUNT (BEAKER) (test injz=950) 586 K/CU MM 150-450 MEAN PLATELET VOLUME (BEAKER) (test oqur=062) 9.5 fL 9.4-12.3 NUCLEATED RED BLOOD CELLS (BEAKER) (test 0 /100 WBC 0-0 ipbo=568) NEUTROPHILS RELATIVE PERCENT (BEAKER) (test 74 % xsxz=545) LYMPHOCYTES RELATIVE PERCENT (BEAKER) (test 15 % qodb=835) MONOCYTES RELATIVE PERCENT (BEAKER) (test 8 % cbxx=873) EOSINOPHILS RELATIVE PERCENT (BEAKER) (test 2 % tbfw=509) BASOPHILS RELATIVE PERCENT (BEAKER) (test 1 % svqj=122) NEUTROPHILS ABSOLUTE COUNT (BEAKER) (test 6.41 K/ L 1.56-6.13 fong=885) LYMPHOCYTES ABSOLUTE COUNT (BEAKER) (test 1.32 K/ L 1.18-3.74 pkxe=116) MONOCYTES ABSOLUTE COUNT (BEAKER) (test 0.65 K/ L 0.24-0.36 zgjr=606) EOSINOPHILS ABSOLUTE COUNT (BEAKER) (test 0.20 K/ L 0.04-0.36 hotz=919) BASOPHILS ABSOLUTE COUNT (BEAKER) (test 0.08 K/ L 0.01-0.08 whsi=066) IMMATURE GRANULOCYTES-RELATIVE PERCENT (BEAKER) 0 % 0-1 (test ahuv=0723) POCT-GLUCOSE [id number] 21:28:00 Test Item Value Reference Range Comments POC-GLUCOSE METER (BEAKER) 216 mg/dL 70-110 TESTED AT [address] (test ckrj=4776) [facility] [address] POCT-GLUCOSE [id number] 18:25:00 Test Item Value Reference Range Comments POC-GLUCOSE METER (BEAKER) 182 mg/dL 70-110 TESTED AT [address] (test uaaf=4733) [facility] [address] POCT-GLUCOSE [id number] 09:37:00 Test Item Value Reference Range Comments POC-GLUCOSE METER (BEAKER) 155 mg/dL 70-[address] [facility] [address] [facility] (test sscp=4001) [facility] [address] CALCIUM, [id number] 07:37:00 Test Item Value Reference Range Comments CALCIUM IONIZED (BEAKER) (test sqpy=797) 1.11 mmol/L 1.12-1.27 PH, BLOOD (BEAKER) (test hoou=2276) 7.39 [id number] 07:10:00 Test Item Value Reference Range Comments FERRITIN (BEAKER) (test ggje=504) 445 ng/mL 5-275 IRON, TIBC, % SAT. (WITHOUT FERRITIN)2017-08-04 07:04:00 Test Item Value Reference Range Comments IRON (BEAKER) (test tajw=204) 55 ug/dL 40-160 TOTAL IRON BINDING CAPACITY (BEAKER) (test 198 ug/dL 250-450 ycjb=692) IRON % SATURATION (2) (BEAKER) (test qeeb=6844) 28 % 20-55 [id number] 06:57:00 Test Item Value Reference Range Comments PHOSPHORUS (BEAKER) (test oasv=526) 4.3 mg/dL 2.3-4.7 [id number] 06:57:00 Test Item Value Reference Range Comments MAGNESIUM (BEAKER) (test ybbw=034) 2.1 mg/dL 1.6-2.6 BASIC METABOLIC [id number] 06:57:00 Test Item Value Reference Range Comments SODIUM (BEAKER) (test 138 meq/L 136-145 lcuo=361) POTASSIUM (BEAKER) (test 3.8 meq/L 3.5-5.1 gcdz=543) CHLORIDE (BEAKER) (test 99 meq/L 98-107 kxms=178) CO2 (BEAKER) (test 29 meq/L 22-29 dhnw=598) BLOOD UREA NITROGEN 18 mg/dL 7-21 (BEAKER) (test vnag=980) CREATININE (BEAKER) (test 1.75 mg/dL 0.57-1.25 husd=422) GLUCOSE RANDOM (BEAKER) 138 mg/dL 70-105 (test uzox=907) CALCIUM (BEAKER) (test 9.7 mg/dL 8.4-10.2 hlii=553) EGFR (BEAKER) (test 35 mL/min/1.73 sq m ESTIMATED GFR IS NOT fvyp=1177) ACCURATE CREATININE CLEARANCE IN PREDICTING GLOMERULAR FILTRATION RATE. ESTIMATED GFR IS NOT APPLICABLE FOR DIALYSIS PATIENTS. B-TYPE NATRIURETIC FACTOR (BNP)2017-08-04 06:54:00 Test Item Value Reference Range Comments B-TYPE NATRIURETIC PEPTIDE (BEAKER) (test 778 pg/mL 0-100 ncft=584) RETICULOCYTE [id number] 06:39:00 Test Item Value Reference Range Comments RETICULOCYTE COUNT PCT (BEAKER) (test xqmh=690) 8.3 % 0.5-1.7 CBC W/PLT COUNT & AUTO [id number] 06:39:00 Test Item Value Reference Range Comments WHITE BLOOD CELL COUNT (BEAKER) (test etjj=569) 9.0 K/ L 3.5-10.5 RED BLOOD CELL COUNT (BEAKER) (test pmxn=504) 2.55 M/ L 3.93-5.22 HEMOGLOBIN (BEAKER) (test kynv=255) 7.8 GM/DL 11.2-15.7 HEMATOCRIT (BEAKER) (test gqsd=519) 25.4 % 34.1-44.9 MEAN CORPUSCULAR VOLUME (BEAKER) (test osqv=444) 99.6 fL 79.4-94.8 MEAN CORPUSCULAR HEMOGLOBIN (BEAKER) (test 30.6 pg 25.6-32.2 chak=129) MEAN CORPUSCULAR HEMOGLOBIN CONC (BEAKER) (test 30.7 GM/DL 32.2-35.5 jddb=675) RED CELL DISTRIBUTION WIDTH (BEAKER) (test 15.9 % 11.7-14.4 bffe=936) PLATELET COUNT (BEAKER) (test wfip=105) 591 K/CU MM 150-450 MEAN PLATELET VOLUME (BEAKER) (test qzfr=312) 9.5 fL 9.4-12.3 NUCLEATED RED BLOOD CELLS (BEAKER) (test 0 /100 WBC 0-0 ddto=963) NEUTROPHILS RELATIVE PERCENT (BEAKER) (test 77 % mplz=241) LYMPHOCYTES RELATIVE PERCENT (BEAKER) (test 13 % icvy=988) MONOCYTES RELATIVE PERCENT (BEAKER) (test 7 % vxye=120) EOSINOPHILS RELATIVE PERCENT (BEAKER) (test 2 % dowe=050) BASOPHILS RELATIVE PERCENT (BEAKER) (test 1 % gdff=473) NEUTROPHILS ABSOLUTE COUNT (BEAKER) (test 6.97 K/ L 1.56-6.13 nwej=076) LYMPHOCYTES ABSOLUTE COUNT (BEAKER) (test 1.13 K/ L 1.18-3.74 tthv=811) MONOCYTES ABSOLUTE COUNT (BEAKER) (test 0.65 K/ L 0.24-0.36 uvld=915) EOSINOPHILS ABSOLUTE COUNT (BEAKER) (test 0.18 K/ L 0.04-0.36 rqmd=940) BASOPHILS ABSOLUTE COUNT (BEAKER) (test 0.07 K/ L 0.01-0.08 memv=629) IMMATURE GRANULOCYTES-RELATIVE PERCENT (BEAKER) 0 % 0-1 (test zhcl=8525) POCT-GLUCOSE [id number] 20:56:00 Test Item Value Reference Range Comments POC-GLUCOSE METER (BEAKER) 167 mg/dL 70-110 TESTED AT [address] (test tpoz=3201) [place] [address] POCT-GLUCOSE [id number] 16:36:00 Test Item Value Reference Range Comments POC-GLUCOSE METER (BEAKER) 200 mg/dL 70-110 TESTED AT [address] (test okdn=3534) [place] [address] POCT-GLUCOSE [id number] 12:59:00 Test Item Value Reference Range Comments POC-GLUCOSE METER (BEAKER) 202 mg/dL 70-110 TESTED AT [address] (test ahxt=2239) [place] [address] POCT-GLUCOSE [id number] 07:37:00 Test Item Value Reference Range Comments POC-GLUCOSE METER (BEAKER) 154 mg/dL 70-110 TESTED AT [address] (test vpow=2658) [place] [address] CBC W/PLT COUNT & AUTO [id number] 06:49:00 Test Item Value Reference Range Comments WHITE BLOOD CELL COUNT (BEAKER) (test diyt=992) 9.8 K/ L 3.5-10.5 RED BLOOD CELL COUNT (BEAKER) (test ubcu=427) 2.62 M/ L 3.93-5.22 HEMOGLOBIN (BEAKER) (test lxot=324) 8.1 GM/DL 11.2-15.7 HEMATOCRIT (BEAKER) (test azkb=324) 25.9 % 34.1-44.9 MEAN CORPUSCULAR VOLUME (BEAKER) (test dqkb=268) 98.9 fL 79.4-94.8 MEAN CORPUSCULAR HEMOGLOBIN (BEAKER) (test 30.9 pg 25.6-32.2 itcb=624) MEAN CORPUSCULAR HEMOGLOBIN CONC (BEAKER) (test 31.3 GM/DL 32.2-35.5 myhj=508) RED CELL DISTRIBUTION WIDTH (BEAKER) (test 15.8 % 11.7-14.4 tjuv=836) PLATELET COUNT (BEAKER) (test edba=741) 667 K/CU MM 150-450 MEAN PLATELET VOLUME (BEAKER) (test apxv=238) 9.4 fL 9.4-12.3 NUCLEATED RED BLOOD CELLS (BEAKER) (test 0 /100 WBC 0-0 qxsd=442) NEUTROPHILS RELATIVE PERCENT (BEAKER) (test 77 % ujov=677) LYMPHOCYTES RELATIVE PERCENT (BEAKER) (test 13 % gygi=498) MONOCYTES RELATIVE PERCENT (BEAKER) (test 7 % xain=305) EOSINOPHILS RELATIVE PERCENT (BEAKER) (test 2 % pgdz=153) BASOPHILS RELATIVE PERCENT (BEAKER) (test 1 % bbou=459) NEUTROPHILS ABSOLUTE COUNT (BEAKER) (test 7.57 K/ L 1.56-6.13 gskp=185) LYMPHOCYTES ABSOLUTE COUNT (BEAKER) (test 1.23 K/ L 1.18-3.74 lslb=378) MONOCYTES ABSOLUTE COUNT (BEAKER) (test 0.69 K/ L 0.24-0.36 pror=475) EOSINOPHILS ABSOLUTE COUNT (BEAKER) (test 0.16 K/ L 0.04-0.36 dosg=103) BASOPHILS ABSOLUTE COUNT (BEAKER) (test 0.08 K/ L 0.01-0.08 whyw=701) IMMATURE GRANULOCYTES-RELATIVE PERCENT (BEAKER) 1 % 0-1 (test ligf=7797) CALCIUM, [id number] 06:38:00 Test Item Value Reference Range Comments CALCIUM IONIZED (BEAKER) (test abem=232) 1.07 mmol/L 1.12-1.27 PH, BLOOD (BEAKER) (test hdgq=3953) 7.42 [id number] 06:08:00 Test Item Value Reference Range Comments PHOSPHORUS (BEAKER) (test eomu=492) 4.3 mg/dL 2.3-4.7 [id number] 06:08:00 Test Item Value Reference Range Comments MAGNESIUM (BEAKER) (test kbwx=902) 2.4 mg/dL 1.6-2.6 BASIC METABOLIC [id number] 06:08:00 Test Item Value Reference Range Comments SODIUM (BEAKER) (test 138 meq/L 136-145 gyva=541) POTASSIUM (BEAKER) (test 4.0 meq/L 3.5-5.1 tcih=868) CHLORIDE (BEAKER) (test 99 meq/L 98-107 sxko=469) CO2 (BEAKER) (test 29 meq/L 22-29 wrzb=164) BLOOD UREA NITROGEN 15 mg/dL 7-21 (BEAKER) (test pxkp=760) CREATININE (BEAKER) (test 1.64 mg/dL 0.57-1.25 ajuf=863) GLUCOSE RANDOM (BEAKER) 135 mg/dL 70-105 (test jpjz=645) CALCIUM (BEAKER) (test 9.5 mg/dL 8.4-10.2 gxqr=204) EGFR (BEAKER) (test 38 mL/min/1.73 sq m ESTIMATED GFR IS NOT opcy=8827) ACCURATE CREATININE CLEARANCE IN PREDICTING GLOMERULAR FILTRATION RATE. ESTIMATED GFR IS NOT APPLICABLE FOR DIALYSIS PATIENTS. POCT-GLUCOSE [id number] 21:13:00 Test Item Value Reference Range Comments POC-GLUCOSE METER (BEAKER) 145 mg/dL 70-[address] [facility] [address] [facility] (test txii=6990) [facility] [address] POCT-GLUCOSE [id number] 17:08:00 Test Item Value Reference Range Comments POC-GLUCOSE METER (BEAKER) 134 mg/dL 70-110 TESTED AT [place] [id number] [facility] (test qmjt=8271) [facility] [address] POCT-GLUCOSE [id number] 11:44:00 Test Item Value Reference Range Comments POC-GLUCOSE METER (BEAKER) 159 mg/dL 70-[address] [facility] [address] [facility] (test sgpc=1818) [facility] [address] POCT-GLUCOSE [id number] 08:07:00 Test Item Value Reference Range Comments POC-GLUCOSE METER (BEAKER) 152 mg/dL 70-[address] [facility] [address] [facility] (test sumx=9144) [facility] [address] CALCIUM, [id number] 05:26:00 Test Item Value Reference Range Comments CALCIUM IONIZED (BEAKER) (test spgr=570) 1.10 mmol/L 1.12-1.27 PH, BLOOD (BEAKER) (test fgjq=7912) 7.42 [id number] 05:05:00 Test Item Value Reference Range Comments PHOSPHORUS (BEAKER) (test xreg=296) 4.6 mg/dL 2.3-4.7 [id number] 05:05:00 Test Item Value Reference Range Comments MAGNESIUM (BEAKER) (test ucdh=431) 1.6 mg/dL 1.6-2.6 COMPREHENSIVE METABOLIC [id number] 05:05:00 Test Item Value Reference Range Comments TOTAL PROTEIN (BEAKER) 6.9 gm/dL 6.0-8.3 (test urxa=111) ALBUMIN (BEAKER) (test 3.2 g/dL 3.5-5.0 wikr=1114) ALKALINE PHOSPHATASE 55 U/L 40-150 (BEAKER) (test oejr=432) BILIRUBIN TOTAL (BEAKER) 0.6 mg/dL 0.2-1.2 (test drrl=770) SODIUM (BEAKER) (test 139 meq/L 136-145 qsnr=430) POTASSIUM (BEAKER) (test 3.9 meq/L 3.5-5.1 sjqn=648) CHLORIDE (BEAKER) (test 100 meq/L 98-107 rsun=481) CO2 (BEAKER) (test 27 meq/L 22-29 pxpn=671) BLOOD UREA NITROGEN 15 mg/dL 7-21 (BEAKER) (test rbms=800) CREATININE (BEAKER) (test 1.55 mg/dL 0.57-1.25 nftu=147) GLUCOSE RANDOM (BEAKER) 125 mg/dL 70-105 (test qyoq=560) CALCIUM (BEAKER) (test 9.2 mg/dL 8.4-10.2 uhwq=024) AST (SGOT) (BEAKER) (test 16 U/L 5-34 jjuh=734) ALT (SGPT) (BEAKER) (test 11 U/L 6-55 xpil=834) EGFR (BEAKER) (test 40 mL/min/1.73 sq m ESTIMATED GFR IS NOT dqsi=9746) ACCURATE CREATININE CLEARANCE IN PREDICTING GLOMERULAR FILTRATION RATE. ESTIMATED GFR IS NOT APPLICABLE FOR DIALYSIS PATIENTS. CBC W/PLT COUNT & AUTO [id number] 04:57:00 Test Item Value Reference Range Comments WHITE BLOOD CELL COUNT (BEAKER) (test auvd=544) 10.8 K/ L 3.5-10.5 RED BLOOD CELL COUNT (BEAKER) (test uopn=106) 2.57 M/ L 3.93-5.22 HEMOGLOBIN (BEAKER) (test ihnw=213) 7.9 GM/DL 11.2-15.7 HEMATOCRIT (BEAKER) (test zscg=273) 25.2 % 34.1-44.9 MEAN CORPUSCULAR VOLUME (BEAKER) (test hazo=739) 98.1 fL 79.4-94.8 MEAN CORPUSCULAR HEMOGLOBIN (BEAKER) (test 30.7 pg 25.6-32.2 yeki=503) MEAN CORPUSCULAR HEMOGLOBIN CONC (BEAKER) (test 31.3 GM/DL 32.2-35.5 kwxu=639) RED CELL DISTRIBUTION WIDTH (BEAKER) (test 15.9 % 11.7-14.4 rhyv=668) PLATELET COUNT (BEAKER) (test nbvd=808) 623 K/CU MM 150-450 MEAN PLATELET VOLUME (BEAKER) (test zoph=828) 9.4 fL 9.4-12.3 NUCLEATED RED BLOOD CELLS (BEAKER) (test 0 /100 WBC 0-0 ujci=269) NEUTROPHILS RELATIVE PERCENT (BEAKER) (test 79 % djli=133) LYMPHOCYTES RELATIVE PERCENT (BEAKER) (test 12 % eegd=716) MONOCYTES RELATIVE PERCENT (BEAKER) (test 7 % plro=470) EOSINOPHILS RELATIVE PERCENT (BEAKER) (test 2 % maae=400) BASOPHILS RELATIVE PERCENT (BEAKER) (test 1 % ykfw=793) NEUTROPHILS ABSOLUTE COUNT (BEAKER) (test 8.49 K/ L 1.56-6.13 lklb=021) LYMPHOCYTES ABSOLUTE COUNT (BEAKER) (test 1.28 K/ L 1.18-3.74 wzfg=882) MONOCYTES ABSOLUTE COUNT (BEAKER) (test 0.74 K/ L 0.24-0.36 cgsn=198) EOSINOPHILS ABSOLUTE COUNT (BEAKER) (test 0.18 K/ L 0.04-0.36 yhua=383) BASOPHILS ABSOLUTE COUNT (BEAKER) (test 0.05 K/ L 0.01-0.08 flzi=865) IMMATURE GRANULOCYTES-RELATIVE PERCENT (BEAKER) 1 % 0-1 (test cnuc=0025) POCT-GLUCOSE [id number] 01:29:00 Test Item Value Reference Range Comments POC-GLUCOSE METER (BEAKER) 182 mg/dL 70-110 TESTED AT [address] (test iamv=7359) [place] [address] POCT-GLUCOSE [id number] 22:32:00 Test Item Value Reference Range Comments POC-GLUCOSE METER (BEAKER) 204 mg/dL 70-110 TESTED AT [address] (test pekm=0464) [place] [address] POCT-GLUCOSE [id number] 18:53:00 Test Item Value Reference Range Comments POC-GLUCOSE METER (BEAKER) 154 mg/dL 70-110 TESTED AT [address] (test tlqv=7564) [place] [id number] POCT-GLUCOSE [id number] 15:50:00 Test Item Value Reference Range Comments POC-GLUCOSE METER (BEAKER) 172 mg/dL 70-110 TESTED AT [address] (test qbap=4534) [place] [address] B-TYPE NATRIURETIC FACTOR (BNP)2017-08-01 15:41:00 Test Item Value Reference Range Comments B-TYPE NATRIURETIC PEPTIDE (BEAKER) (test 1253 pg/mL 0-100 lyaj=006) RAD, CHEST, 1 VIEW, NON [id number] 15:00:00Reason for exam:->SOBShould this be performed at the bedside?->YesFINAL REPORT Chest one view compared to July 28, 2017 Discussion: There is cardiac prominence. Lungs are grossly clear. No effusion or pneumothorax. There is either hiatal hernia or aortic tortuosity. IMPRESSIONS: No significant change. Signed: Tony Hsu MDReport Verified Date/Time: 08/01/2017 15:00:05 Reading Location: [facility] [id number] Consult Reading Room Electronicallysigned by: TONY HSU M.D. on 08/01/2017 03:00 PMPOCT-GLUCOSE [id number] 09:28:00 Test Item Value Reference Range Comments POC-GLUCOSE METER (BEAKER) 155 mg/dL 70-[address] [facility] [address] [facility] (test zmek=1395) [facility] [address] BASIC METABOLIC [id number] 08:00:00 Test Item Value Reference Range Comments SODIUM (BEAKER) (test 138 meq/L 136-145 ihgi=777) POTASSIUM (BEAKER) (test 3.8 meq/L 3.5-5.1 mzrw=087) CHLORIDE (BEAKER) (test 100 meq/L 98-107 atsw=501) CO2 (BEAKER) (test 27 meq/L 22-29 ihkz=885) BLOOD UREA NITROGEN 14 mg/dL 7-21 (BEAKER) (test nmkf=788) CREATININE (BEAKER) (test 1.47 mg/dL 0.57-1.25 gctx=324) GLUCOSE RANDOM (BEAKER) 150 mg/dL 70-105 (test pufz=876) CALCIUM (BEAKER) (test 9.0 mg/dL 8.4-10.2 qevy=915) EGFR (BEAKER) (test 43 mL/min/1.73 sq m ESTIMATED GFR IS NOT syir=4357) ACCURATE CREATININE CLEARANCE IN PREDICTING GLOMERULAR FILTRATION RATE. ESTIMATED GFR IS NOT APPLICABLE FOR DIALYSIS PATIENTS. CBC W/PLT COUNT & AUTO [id number] 07:54:00 Test Item Value Reference Range Comments WHITE BLOOD CELL COUNT (BEAKER) (test chko=472) 12.4 K/ L 3.5-10.5 RED BLOOD CELL COUNT (BEAKER) (test dqdd=834) 2.57 M/ L 3.93-5.22 HEMOGLOBIN (BEAKER) (test skng=849) 7.7 GM/DL 11.2-15.7 HEMATOCRIT (BEAKER) (test bodg=209) 25.0 % 34.1-44.9 MEAN CORPUSCULAR VOLUME (BEAKER) (test uvvk=572) 97.3 fL 79.4-94.8 MEAN CORPUSCULAR HEMOGLOBIN (BEAKER) (test 30.0 pg 25.6-32.2 jitr=232) MEAN CORPUSCULAR HEMOGLOBIN CONC (BEAKER) (test 30.8 GM/DL 32.2-35.5 byfb=886) RED CELL DISTRIBUTION WIDTH (BEAKER) (test 15.8 % 11.7-14.4 qavz=003) PLATELET COUNT (BEAKER) (test kgbi=287) 582 K/CU MM 150-450 MEAN PLATELET VOLUME (BEAKER) (test lpve=516) 9.5 fL 9.4-12.3 NUCLEATED RED BLOOD CELLS (BEAKER) (test 0 /100 WBC 0-0 buma=750) NEUTROPHILS RELATIVE PERCENT (BEAKER) (test 82 % pbii=432) LYMPHOCYTES RELATIVE PERCENT (BEAKER) (test 10 % dowq=581) MONOCYTES RELATIVE PERCENT (BEAKER) (test 6 % cnoj=963) EOSINOPHILS RELATIVE PERCENT (BEAKER) (test 1 % uwvb=459) BASOPHILS RELATIVE PERCENT (BEAKER) (test 1 % pzhd=537) NEUTROPHILS ABSOLUTE COUNT (BEAKER) (test 10.08 K/ L 1.56-6.13 vhcd=023) LYMPHOCYTES ABSOLUTE COUNT (BEAKER) (test 1.19 K/ L 1.18-3.74 eulk=566) MONOCYTES ABSOLUTE COUNT (BEAKER) (test 0.74 K/ L 0.24-0.36 hxek=993) EOSINOPHILS ABSOLUTE COUNT (BEAKER) (test 0.16 K/ L 0.04-0.36 knxg=266) BASOPHILS ABSOLUTE COUNT (BEAKER) (test 0.10 K/ L 0.01-0.08 jnxm=756) IMMATURE GRANULOCYTES-RELATIVE PERCENT (BEAKER) 1 % 0-1 (test wrko=8768) POCT-GLUCOSE [id number] 21:34:00 Test Item Value Reference Range Comments POC-GLUCOSE METER (BEAKER) 153 mg/dL 70-110 TESTED AT [address] (test bqkg=3946) [facility] [address] POCT-GLUCOSE [id number] 17:34:00 Test Item Value Reference Range Comments POC-GLUCOSE METER (BEAKER) 165 mg/dL 70-110 TESTED AT [address] (test pyix=3477) [facility] [address] POCT-GLUCOSE [id number] 14:33:00 Test Item Value Reference Range Comments POC-GLUCOSE METER (BEAKER) 208 mg/dL 70-110 TESTED AT [address] (test hmua=4253) [place] [id number] POCT-GLUCOSE [id number] 12:54:00 Test Item Value Reference Range Comments POC-GLUCOSE METER (BEAKER) 218 mg/dL 70-110 TESTED AT [address] (test olbd=5306) [place] [id number] POCT-GLUCOSE [id number] 10:34:00 Test Item Value Reference Range Comments POC-GLUCOSE METER (BEAKER) 204 mg/dL 70-110 TESTED AT [address] (test pppf=6739) [place] [id number] POCT-GLUCOSE [id number] 08:41:00 Test Item Value Reference Range Comments POC-GLUCOSE METER (BEAKER) 201 mg/dL 70-110 TESTED AT [address] (test byle=9267) [place] [id number] 05:54:00 Test Item Value Reference Range Comments MAGNESIUM (BEAKER) (test ugva=589) 1.8 mg/dL 1.6-2.6 BASIC METABOLIC [id number] 05:54:00 Test Item Value Reference Range Comments SODIUM (BEAKER) (test 138 meq/L 136-145 ctzu=033) POTASSIUM (BEAKER) (test 3.6 meq/L 3.5-5.1 gnfq=901) CHLORIDE (BEAKER) (test 100 meq/L 98-107 pbdy=837) CO2 (BEAKER) (test 25 meq/L 22-29 sdhw=089) BLOOD UREA NITROGEN 14 mg/dL 7-21 (BEAKER) (test gdyk=118) CREATININE (BEAKER) (test 1.42 mg/dL 0.57-1.25 kjzd=404) GLUCOSE RANDOM (BEAKER) 145 mg/dL 70-105 (test qknx=115) CALCIUM (BEAKER) (test 9.4 mg/dL 8.4-10.2 zkmr=297) EGFR (BEAKER) (test 44 mL/min/1.73 sq m ESTIMATED GFR IS NOT nlbl=8369) ACCURATE CREATININE CLEARANCE IN PREDICTING GLOMERULAR FILTRATION RATE. ESTIMATED GFR IS NOT APPLICABLE FOR DIALYSIS PATIENTS. CBC (HEMOGRAM ONLY)2017-07-31 05:42:00 Test Item Value Reference Range Comments WHITE BLOOD CELL COUNT (BEAKER) (test erbm=145) 13.3 K/ L 3.5-10.5 RED BLOOD CELL COUNT (BEAKER) (test fjpi=677) 2.65 M/ L 3.93-5.22 HEMOGLOBIN (BEAKER) (test qbmm=817) 7.9 GM/DL 11.2-15.7 HEMATOCRIT (BEAKER) (test yukp=410) 25.9 % 34.1-44.9 MEAN CORPUSCULAR VOLUME (BEAKER) (test nsvx=419) 97.7 fL 79.4-94.8 MEAN CORPUSCULAR HEMOGLOBIN (BEAKER) (test 29.8 pg 25.6-32.2 doxy=758) MEAN CORPUSCULAR HEMOGLOBIN CONC (BEAKER) (test 30.5 GM/DL 32.2-35.5 pabg=197) RED CELL DISTRIBUTION WIDTH (BEAKER) (test 15.3 % 11.7-14.4 srjp=475) PLATELET COUNT (BEAKER) (test roxg=436) 580 K/CU MM 150-450 MEAN PLATELET VOLUME (BEAKER) (test zsdl=878) 9.7 fL 9.4-12.3 NUCLEATED RED BLOOD CELLS (BEAKER) (test 0 /100 WBC 0-0 uxcp=039) POCT-GLUCOSE [id number] 21:21:00 Test Item Value Reference Range Comments POC-GLUCOSE METER (BEAKER) 206 mg/dL 70-110 TESTED AT [address] (test smre=0867) [facility] [address] POCT-GLUCOSE [id number] 17:50:00 Test Item Value Reference Range Comments POC-GLUCOSE METER (BEAKER) 160 mg/dL 70-110 TESTED AT [address] (test pkhb=5105) [facility] [address] POCT-GLUCOSE [id number] 12:12:00 Test Item Value Reference Range Comments POC-GLUCOSE METER (BEAKER) 214 mg/dL 70-110 TESTED AT [address] (test sgnv=5473) [facility] [address] POCT-GLUCOSE [id number] 07:59:00 Test Item Value Reference Range Comments POC-GLUCOSE METER (BEAKER) 146 mg/dL 70-[address] [facility] [address] (test riet=2737) [place] [address] CALCIUM, [id number] 07:23:00 Test Item Value Reference Range Comments CALCIUM IONIZED (BEAKER) (test rydo=276) 1.11 mmol/L 1.12-1.27 PH, BLOOD (BEAKER) (test kpls=5788) 7.42 [id number] 07:07:00 Test Item Value Reference Range Comments PHOSPHORUS (BEAKER) (test cftq=502) 3.5 mg/dL 2.3-4.7 [id number] 07:07:00 Test Item Value Reference Range Comments MAGNESIUM (BEAKER) (test atjc=476) 1.8 mg/dL 1.6-2.6 COMPREHENSIVE METABOLIC [id number] 07:07:00 Test Item Value Reference Range Comments TOTAL PROTEIN (BEAKER) 6.7 gm/dL 6.0-8.3 (test eznx=647) ALBUMIN (BEAKER) (test 3.1 g/dL 3.5-5.0 afsb=7692) ALKALINE PHOSPHATASE 53 U/L 40-150 (BEAKER) (test hxbo=331) BILIRUBIN TOTAL (BEAKER) 0.6 mg/dL 0.2-1.2 (test msvq=785) SODIUM (BEAKER) (test 139 meq/L 136-145 lzph=043) POTASSIUM (BEAKER) (test 4.0 meq/L 3.5-5.1 fvwx=983) CHLORIDE (BEAKER) (test 103 meq/L 98-107 zkgn=160) CO2 (BEAKER) (test 27 meq/L 22-29 nyqc=152) BLOOD UREA NITROGEN 16 mg/dL 7-21 (BEAKER) (test knpu=477) CREATININE (BEAKER) (test 1.34 mg/dL 0.57-1.25 ppdd=907) GLUCOSE RANDOM (BEAKER) 116 mg/dL 70-105 (test iret=053) CALCIUM (BEAKER) (test 9.2 mg/dL 8.4-10.2 zwxw=387) AST (SGOT) (BEAKER) (test 15 U/L 5-34 tpde=365) ALT (SGPT) (BEAKER) (test 11 U/L 6-55 njou=828) EGFR (BEAKER) (test 47 mL/min/1.73 sq m ESTIMATED GFR IS NOT qlyp=9185) ACCURATE CREATININE CLEARANCE IN PREDICTING GLOMERULAR FILTRATION RATE. ESTIMATED GFR IS NOT APPLICABLE FOR DIALYSIS PATIENTS. CBC W/PLT COUNT & AUTO [id number] 06:52:00 Test Item Value Reference Range Comments WHITE BLOOD CELL COUNT (BEAKER) (test wfru=372) 12.8 K/ L 3.5-10.5 RED BLOOD CELL COUNT (BEAKER) (test dvdi=562) 2.43 M/ L 3.93-5.22 HEMOGLOBIN (BEAKER) (test qomu=838) 7.2 GM/DL 11.2-15.7 HEMATOCRIT (BEAKER) (test mjlx=118) 23.8 % 34.1-44.9 MEAN CORPUSCULAR VOLUME (BEAKER) (test xoey=961) 97.9 fL 79.4-94.8 MEAN CORPUSCULAR HEMOGLOBIN (BEAKER) (test 29.6 pg 25.6-32.2 abwi=313) MEAN CORPUSCULAR HEMOGLOBIN CONC (BEAKER) (test 30.3 GM/DL 32.2-35.5 wvti=018) RED CELL DISTRIBUTION WIDTH (BEAKER) (test 15.0 % 11.7-14.4 lazz=002) PLATELET COUNT (BEAKER) (test lnvm=817) 456 K/CU MM 150-450 MEAN PLATELET VOLUME (BEAKER) (test ikst=377) 10.3 fL 9.4-12.3 NUCLEATED RED BLOOD CELLS (BEAKER) (test 0 /100 WBC 0-0 uhhg=852) NEUTROPHILS RELATIVE PERCENT (BEAKER) (test 82 % pqra=058) LYMPHOCYTES RELATIVE PERCENT (BEAKER) (test 9 % dsdx=986) MONOCYTES RELATIVE PERCENT (BEAKER) (test 6 % owsj=405) EOSINOPHILS RELATIVE PERCENT (BEAKER) (test 2 % kmet=797) BASOPHILS RELATIVE PERCENT (BEAKER) (test 0 % aciq=210) NEUTROPHILS ABSOLUTE COUNT (BEAKER) (test 10.52 K/ L 1.56-6.13 qhqg=367) LYMPHOCYTES ABSOLUTE COUNT (BEAKER) (test 1.19 K/ L 1.18-3.74 qyac=018) MONOCYTES ABSOLUTE COUNT (BEAKER) (test 0.73 K/ L 0.24-0.36 ljyi=577) EOSINOPHILS ABSOLUTE COUNT (BEAKER) (test 0.22 K/ L 0.04-0.36 obpr=593) BASOPHILS ABSOLUTE COUNT (BEAKER) (test 0.04 K/ L 0.01-0.08 chni=023) IMMATURE GRANULOCYTES-RELATIVE PERCENT (BEAKER) 1 % 0-1 (test adct=0963) POCT-GLUCOSE [id number] 21:47:00 Test Item Value Reference Range Comments POC-GLUCOSE METER (BEAKER) 106 mg/dL 70-110 TESTED AT [address] (test zqrm=0581) [place] [address] POCT-GLUCOSE [id number] 18:50:00 Test Item Value Reference Range Comments POC-GLUCOSE METER (BEAKER) 175 mg/dL 70-110 TESTED AT [address] (test vooq=0331) [place] [address] [id number] 15:18:00 Test Item Value Reference Range Comments POTASSIUM (BEAKER) (test jdus=661) 3.7 meq/L 3.5-5.1 [id number] 15:18:00 Test Item Value Reference Range Comments MAGNESIUM (BEAKER) (test jnqu=355) 2.2 mg/dL 1.6-2.6 POCT-GLUCOSE [id number] 11:48:00 Test Item Value Reference Range Comments POC-GLUCOSE METER (BEAKER) 131 mg/dL 70-110 TESTED AT [address] (test xdif=7105) [place] [address] BLOOD GAS, [id number] 11:46:00 Test Item Value Reference Range Comments PH ARTERIAL (BEAKER) (test lqeq=767) 7.43 7.35-7.45 PCO2 ARTERIAL (BEAKER) (test ibeu=523) 46 mmHg 35-45 PO2 ARTERIAL (BEAKER) (test uawi=156) 83 mmHg 80-90 O2 SATURATION ARTERIAL (BEAKER) (test mqsi=943) 96.5 % 96.0-97.0 HCO3 ARTERIAL (BEAKER) (test rbtl=158) 30 mmol/L 21-29 BASE EXCESS ARTERIAL (BEAKER) (test rjhu=818) 4.8 mmol/L -2.0-3.0 PATIENT TEMPERATURE (BEAKER) (test pgcr=0566) 36.9 C FIO2 (BEAKER) (test fesn=1403) 36.0 % POCT-GLUCOSE [id number] 08:29:00 Test Item Value Reference Range Comments POC-GLUCOSE METER (BEAKER) 129 mg/dL 70-[address] [facility] [address] [facility] (test wxvz=8188) [place] [address] CALCIUM, [id number] 04:18:00 Test Item Value Reference Range Comments CALCIUM IONIZED (BEAKER) (test rggm=240) 1.11 mmol/L 1.12-1.27 PH, BLOOD (BEAKER) (test xqeb=5018) 7.40 B-TYPE NATRIURETIC FACTOR (BNP)2017-07-29 04:06:00 Test Item Value Reference Range Comments B-TYPE NATRIURETIC PEPTIDE (BEAKER) (test 982 pg/mL 0-100 pwre=629) [id number] 03:59:00 Test Item Value Reference Range Comments PHOSPHORUS (BEAKER) (test zwnq=120) 3.6 mg/dL 2.3-4.7 [id number] 03:59:00 Test Item Value Reference Range Comments MAGNESIUM (BEAKER) (test oupp=693) 1.9 mg/dL 1.6-2.6 BASIC METABOLIC [id number] 03:59:00 Test Item Value Reference Range Comments SODIUM (BEAKER) (test 141 meq/L 136-145 khwe=844) POTASSIUM (BEAKER) (test 3.1 meq/L 3.5-5.1 tydu=960) CHLORIDE (BEAKER) (test 103 meq/L 98-107 vamq=107) CO2 (BEAKER) (test 26 meq/L 22-29 cisn=569) BLOOD UREA NITROGEN 17 mg/dL 7-21 (BEAKER) (test efsx=335) CREATININE (BEAKER) (test 1.43 mg/dL 0.57-1.25 biox=878) GLUCOSE RANDOM (BEAKER) 110 mg/dL 70-105 (test vkgu=055) CALCIUM (BEAKER) (test 9.0 mg/dL 8.4-10.2 quzq=400) EGFR (BEAKER) (test 44 mL/min/1.73 sq m ESTIMATED GFR IS NOT hyct=4435) ACCURATE CREATININE CLEARANCE IN PREDICTING GLOMERULAR FILTRATION RATE. ESTIMATED GFR IS NOT APPLICABLE FOR DIALYSIS PATIENTS. CBC (HEMOGRAM ONLY)2017-07-29 03:51:00 Test Item Value Reference Range Comments WHITE BLOOD CELL COUNT (BEAKER) (test cmwh=977) 12.2 K/ L 3.5-10.5 RED BLOOD CELL COUNT (BEAKER) (test vsxh=477) 2.48 M/ L 3.93-5.22 HEMOGLOBIN (BEAKER) (test ebed=731) 7.4 GM/DL 11.2-15.7 HEMATOCRIT (BEAKER) (test ypts=514) 24.2 % 34.1-44.9 MEAN CORPUSCULAR VOLUME (BEAKER) (test lpxz=560) 97.6 fL 79.4-94.8 MEAN CORPUSCULAR HEMOGLOBIN (BEAKER) (test 29.8 pg 25.6-32.2 glqa=627) MEAN CORPUSCULAR HEMOGLOBIN CONC (BEAKER) (test 30.6 GM/DL 32.2-35.5 hrwt=137) RED CELL DISTRIBUTION WIDTH (BEAKER) (test 15.1 % 11.7-14.4 dhuq=579) PLATELET COUNT (BEAKER) (test mswj=860) 410 K/CU MM 150-450 MEAN PLATELET VOLUME (BEAKER) (test trxu=796) 10.2 fL 9.4-12.3 NUCLEATED RED BLOOD CELLS (BEAKER) (test 0 /100 WBC 0-0 avdb=833) POCT-GLUCOSE [id number] 23:55:00 Test Item Value Reference Range Comments POC-GLUCOSE METER (BEAKER) 164 mg/dL 70-[address] [facility] [address] [facility] (test nvud=0394) [facility] [address] HERPES VIRUS ANTIBODY, [id number] 11:02:00 Test Item Value Reference Range Comments HERPES VIRUS IGM (BEAKER) (test mgzn=0019) Negative HSV IgM 1=NEGATIVEHSV IgM 2=NEGATIVETOXOPLASMA GONDII ANTIBODY, [id number] 11 :02:00 Test Item Value Reference Range Comments TOXOPLASMA IGM ANTIBODY (BEAKER) (test ykwx=576) Negative RAD, CHEST, 1 VIEW, NON [id number] 10:48:00Reason for exam:->acute respiratory insufficiencyShould this be [...] MDReport Verified Date/Time: 07/28/2017 10:48:24 Reading Location: [facility] Radiology Reading Room [id number] 05:13:00 Test Item Value Reference Range Comments PHOSPHORUS (BEAKER) (test qdui=628) 3.3 mg/dL 2.3-4.7 [id number] 05:13:00 Test Item Value Reference Range Comments MAGNESIUM (BEAKER) (test psas=890) 1.9 mg/dL 1.6-2.6 HEPATIC FUNCTION [id number] 05:13:00 Test Item Value Reference Range Comments TOTAL PROTEIN (BEAKER) (test urwk=762) 7.5 gm/dL 6.0-8.3 ALBUMIN (BEAKER) (test smrd=8426) 3.6 g/dL 3.5-5.0 BILIRUBIN TOTAL (BEAKER) (test zdrk=706) 0.9 mg/dL 0.2-1.2 BILIRUBIN DIRECT (BEAKER) (test vslv=368) 0.4 mg/dL 0.1-0.5 ALKALINE PHOSPHATASE (BEAKER) (test xwak=081) 66 U/L 40-150 AST (SGOT) (BEAKER) (test abku=170) 21 U/L 5-34 ALT (SGPT) (BEAKER) (test gjdn=275) 17 U/L 6-55 COMPREHENSIVE METABOLIC [id number] 05:13:00 Test Item Value Reference Range Comments TOTAL PROTEIN (BEAKER) 7.5 gm/dL 6.0-8.3 (test ebae=230) ALBUMIN (BEAKER) (test 3.6 g/dL 3.5-5.0 buri=2262) ALKALINE PHOSPHATASE 66 U/L 40-150 (BEAKER) (test hnkk=654) BILIRUBIN TOTAL (BEAKER) 0.9 mg/dL 0.2-1.2 (test fkre=323) SODIUM (BEAKER) (test 143 meq/L 136-145 tytj=553) POTASSIUM (BEAKER) (test 3.5 meq/L 3.5-5.1 vdni=723) CHLORIDE (BEAKER) (test 105 meq/L 98-107 cwxi=801) CO2 (BEAKER) (test 25 meq/L 22-29 aikl=852) BLOOD UREA NITROGEN 18 mg/dL 7-21 (BEAKER) (test arob=690) CREATININE (BEAKER) (test 1.43 mg/dL 0.57-1.25 rpwv=736) GLUCOSE RANDOM (BEAKER) 130 mg/dL 70-105 (test mynt=435) CALCIUM (BEAKER) (test 9.6 mg/dL 8.4-10.2 ueoz=550) AST (SGOT) (BEAKER) (test 21 U/L 5-34 iwsp=390) ALT (SGPT) (BEAKER) (test 17 U/L 6-55 bfea=054) EGFR (BEAKER) (test 44 mL/min/1.73 sq m ESTIMATED GFR IS NOT cfhf=7989) ACCURATE CREATININE CLEARANCE IN PREDICTING GLOMERULAR FILTRATION RATE. ESTIMATED GFR IS NOT APPLICABLE FOR DIALYSIS PATIENTS. LACTATE DEHYDROGENASE (LDH)2017-07-28 05:13:00 Test Item Value Reference Range Comments LACTATE DEHYDROGENASE (BEAKER) (test xzzz=964) 639 U/L 125-220 CBC W/PLT COUNT & AUTO [id number] 04:57:00 Test Item Value Reference Range Comments WHITE BLOOD CELL COUNT (BEAKER) (test lkgz=359) 13.6 K/ L 3.5-10.5 RED BLOOD CELL COUNT (BEAKER) (test wodg=565) 2.86 M/ L 3.93-5.22 HEMOGLOBIN (BEAKER) (test boht=866) 8.5 GM/DL 11.2-15.7 HEMATOCRIT (BEAKER) (test mwai=331) 28.9 % 34.1-44.9 MEAN CORPUSCULAR VOLUME (BEAKER) (test qdaz=687) 101.0 fL 79.4-94.8 MEAN CORPUSCULAR HEMOGLOBIN (BEAKER) (test 29.7 pg 25.6-32.2 eptx=259) MEAN CORPUSCULAR HEMOGLOBIN CONC (BEAKER) (test 29.4 GM/DL 32.2-35.5 anwz=649) RED CELL DISTRIBUTION WIDTH (BEAKER) (test 15.2 % 11.7-14.4 tdbz=158) PLATELET COUNT (BEAKER) (test jmzf=854) 375 K/CU MM 150-450 MEAN PLATELET VOLUME (BEAKER) (test antf=169) 10.7 fL 9.4-12.3 NUCLEATED RED BLOOD CELLS (BEAKER) (test 0 /100 WBC 0-0 txet=009) NEUTROPHILS RELATIVE PERCENT (BEAKER) (test 82 % glby=334) LYMPHOCYTES RELATIVE PERCENT (BEAKER) (test 9 % fbui=468) MONOCYTES RELATIVE PERCENT (BEAKER) (test 6 % xnvu=881) EOSINOPHILS RELATIVE PERCENT (BEAKER) (test 2 % jppv=259) BASOPHILS RELATIVE PERCENT (BEAKER) (test 1 % tige=433) NEUTROPHILS ABSOLUTE COUNT (BEAKER) (test 11.11 K/ L 1.56-6.13 dhsv=082) LYMPHOCYTES ABSOLUTE COUNT (BEAKER) (test 1.17 K/ L 1.18-3.74 qxem=492) MONOCYTES ABSOLUTE COUNT (BEAKER) (test 0.83 K/ L 0.24-0.36 flmt=138) EOSINOPHILS ABSOLUTE COUNT (BEAKER) (test 0.25 K/ L 0.04-0.36 qrpf=548) BASOPHILS ABSOLUTE COUNT (BEAKER) (test 0.07 K/ L 0.01-0.08 tflk=717) IMMATURE GRANULOCYTES-RELATIVE PERCENT (BEAKER) 1 % 0-1 (test retj=9750) OCCULT BLOOD, [id number] 01:02:00 Test Item Value Reference Range Comments FECAL OCCULT BLOOD (BEAKER) (test avpb=023) Negative Negative POCT-GLUCOSE [id number] 00:46:00 Test Item Value Reference Range Comments POC-GLUCOSE METER (BEAKER) 149 mg/dL 70-[address] [facility] [address] [facility] (test dudb=2086) [facility] [address] C. DIFFICILE GDH [id number] 19:51:00 Test Item Value Reference Range Comments CDT TOXIN (test Negative Negative cevz=[id number]) CDT GDH ANTIGEN (test Negative Negative No indication of Clostridium azkw=[id number]) difficile infection and no colonization. Discontinue enteric isolation and therapy. Testing performed by [employer] Rapid Cassette Assay. For GDH, published sensitivity of the assay is 98.7% compared to cytotoxicity testing. For Toxin AB, published sensitivity is 87.8% and specificity 99.4% compared to cytotoxicity testing.Verification of kit performance was done by the [facility] Microbiology Lab prior to clinical use.POCT-GLUCOSE [id number] 18:11:00 Test Item Value Reference Range Comments POC-GLUCOSE METER (BEAKER) 201 mg/dL 70-110 TESTED AT [address] (test qbnv=9333) [place] [address] BLOOD GAS, [id number] 17:03:00 Test Item Value Reference Range Comments PH ARTERIAL (BEAKER) (test jvfh=243) 7.41 7.35-7.45 PCO2 ARTERIAL (BEAKER) (test lloz=029) 45 mmHg 35-45 PO2 ARTERIAL (BEAKER) (test vsmn=506) 94 mmHg 80-90 O2 SATURATION ARTERIAL (BEAKER) (test yuwk=059) 97.3 % 96.0-97.0 HCO3 ARTERIAL (BEAKER) (test dwks=718) 28 mmol/L 21-29 BASE EXCESS ARTERIAL (BEAKER) (test qnlu=351) 2.3 mmol/L -2.0-3.0 PATIENT TEMPERATURE (BEAKER) (test fxsg=3248) 36.6 C FIO2 (BEAKER) (test rtmc=3420) 40.0 % POCT-GLUCOSE [id number] 12:44:00 Test Item Value Reference Range Comments POC-GLUCOSE METER (BEAKER) 117 mg/dL 70-110 TESTED AT [address] (test ribv=3084) [place] [address] B-TYPE NATRIURETIC FACTOR (BNP)2017-07-27 11:13:00 Test Item Value Reference Range Comments B-TYPE NATRIURETIC PEPTIDE (BEAKER) (test 1198 pg/mL 0-100 xrly=197) LACTIC ACID, VENOUS, WHOLE [id number] 11:12:00 Test Item Value Reference Range Comments LACTATE BLOOD VENOUS (2) (BEAKER) (test 0.7 mmol/L 0.5-2.2 alcw=3289) Effective 08/06/2015: Units/Reference Range ChangeNew: 0.5-2.2 mmol/L Previous: 5 -20 mg/dLOXYGEN SATURATION, [id number] 10:28:00 Test Item Value Reference Range Comments O2 SATURATION (MEASURED) (BEAKER) (test ygrt=9366) 59.6 % RAD, CHEST, 1 VIEW, NON [id number] 08:23:00Reason for exam:->acute respiratory insufficiencyShould this be [...] Verified Date/Time: 07/27/2017 08:23 :08 Reading Location: [facility] Radiology Reading Room POCT-GLUCOSE [id number] 07:53:00 Test Item Value Reference Range Comments POC-GLUCOSE METER (BEAKER) 124 mg/dL 70-[address] [facility] [address] [place] [address] (test emco=8712) [facility] [address] BASIC METABOLIC [id number] 06:33:00 Test Item Value Reference Range Comments SODIUM (BEAKER) (test 144 meq/L 136-145 ixns=788) POTASSIUM (BEAKER) (test 3.8 meq/L 3.5-5.1 lynk=955) CHLORIDE (BEAKER) (test 109 meq/L 98-107 jilg=695) CO2 (BEAKER) (test 24 meq/L 22-29 dica=518) BLOOD UREA NITROGEN 20 mg/dL 7-21 (BEAKER) (test uhli=683) CREATININE (BEAKER) (test 1.40 mg/dL 0.57-1.25 outl=912) GLUCOSE RANDOM (BEAKER) 111 mg/dL 70-105 (test vvpk=711) CALCIUM (BEAKER) (test 8.8 mg/dL 8.4-10.2 myrm=305) EGFR (BEAKER) (test 45 mL/min/1.73 sq m ESTIMATED GFR IS NOT ytfy=9627) ACCURATE CREATININE CLEARANCE IN PREDICTING GLOMERULAR FILTRATION RATE. ESTIMATED GFR IS NOT APPLICABLE FOR DIALYSIS PATIENTS. [id number] 06:24:00 Test Item Value Reference Range Comments PHOSPHORUS (BEAKER) (test bqcx=034) 3.3 mg/dL 2.3-4.7 BASIC METABOLIC [id number] 06:24:00 Test Item Value Reference Range Comments SODIUM (BEAKER) (test 145 meq/L 136-145 wrld=270) POTASSIUM (BEAKER) (test 3.8 meq/L 3.5-5.1 funr=603) CHLORIDE (BEAKER) (test 110 meq/L 98-107 rhbl=801) CO2 (BEAKER) (test 24 meq/L 22-29 dydr=878) BLOOD UREA NITROGEN 21 mg/dL 7-21 (BEAKER) (test zyfx=183) CREATININE (BEAKER) (test 1.39 mg/dL 0.57-1.25 hhhk=166) GLUCOSE RANDOM (BEAKER) 112 mg/dL 70-105 (test ktfa=673) CALCIUM (BEAKER) (test 8.9 mg/dL 8.4-10.2 ssjq=070) EGFR (BEAKER) (test 45 mL/min/1.73 sq m ESTIMATED GFR IS NOT bzzu=8783) ACCURATE CREATININE CLEARANCE IN PREDICTING GLOMERULAR FILTRATION RATE. ESTIMATED GFR IS NOT APPLICABLE FOR DIALYSIS PATIENTS. [id number] 03:27:00 Test Item Value Reference Range Comments PROCALCITONIN (BEAKER) (test mgqp=2515) 0.28 ng/mL <0.05 SEPSIS RISK (ng/mL)Low: 0.05-0.50Intermediate: 0.51-2.00High: & gt;=2.01LACTATE DEHYDROGENASE (LDH)2017-07-27 03:07:00 Test Item Value Reference Range Comments LACTATE DEHYDROGENASE (BEAKER) (test ssyk=183) 615 U/L 125-220 HEPATIC FUNCTION [id number] 03:07:00 Test Item Value Reference Range Comments TOTAL PROTEIN (BEAKER) (test rjjr=623) 6.8 gm/dL 6.0-8.3 ALBUMIN (BEAKER) (test olku=3300) 3.2 g/dL 3.5-5.0 BILIRUBIN TOTAL (BEAKER) (test idys=903) 0.9 mg/dL 0.2-1.2 BILIRUBIN DIRECT (BEAKER) (test ijih=139) 0.5 mg/dL 0.1-0.5 ALKALINE PHOSPHATASE (BEAKER) (test wddw=026) 58 U/L 40-150 AST (SGOT) (BEAKER) (test fzkh=264) 21 U/L 5-34 ALT (SGPT) (BEAKER) (test fday=306) 15 U/L 6-55 CALCIUM, [id number] 02:57:00 Test Item Value Reference Range Comments CALCIUM IONIZED (BEAKER) (test sydr=365) 1.14 mmol/L 1.12-1.27 PH, BLOOD (BEAKER) (test pror=0624) 7.42 CBC W/PLT COUNT & AUTO [id number] 02:56:00 Test Item Value Reference Range Comments WHITE BLOOD CELL COUNT (BEAKER) (test dlxo=774) 12.4 K/ L 3.5-10.5 RED BLOOD CELL COUNT (BEAKER) (test bajg=994) 2.50 M/ L 3.93-5.22 HEMOGLOBIN (BEAKER) (test bzyy=625) 7.4 GM/DL 11.2-15.7 HEMATOCRIT (BEAKER) (test fasz=397) 24.7 % 34.1-44.9 MEAN CORPUSCULAR VOLUME (BEAKER) (test petc=752) 98.8 fL 79.4-94.8 MEAN CORPUSCULAR HEMOGLOBIN (BEAKER) (test 29.6 pg 25.6-32.2 lwyi=617) MEAN CORPUSCULAR HEMOGLOBIN CONC (BEAKER) (test 30.0 GM/DL 32.2-35.5 qkmr=430) RED CELL DISTRIBUTION WIDTH (BEAKER) (test 15.1 % 11.7-14.4 svzr=746) PLATELET COUNT (BEAKER) (test lqbh=288) 233 K/CU MM 150-450 MEAN PLATELET VOLUME (BEAKER) (test bmvf=637) 10.5 fL 9.4-12.3 NUCLEATED RED BLOOD CELLS (BEAKER) (test 0 /100 WBC 0-0 opiy=691) NEUTROPHILS RELATIVE PERCENT (BEAKER) (test 80 % vgce=532) LYMPHOCYTES RELATIVE PERCENT (BEAKER) (test 9 % tkou=074) MONOCYTES RELATIVE PERCENT (BEAKER) (test 7 % bted=452) EOSINOPHILS RELATIVE PERCENT (BEAKER) (test 2 % cygy=862) BASOPHILS RELATIVE PERCENT (BEAKER) (test 0 % itwy=618) NEUTROPHILS ABSOLUTE COUNT (BEAKER) (test 9.94 K/ L 1.56-6.13 xjrb=681) LYMPHOCYTES ABSOLUTE COUNT (BEAKER) (test 1.15 K/ L 1.18-3.74 wznb=011) MONOCYTES ABSOLUTE COUNT (BEAKER) (test 0.90 K/ L 0.24-0.36 qhzj=350) EOSINOPHILS ABSOLUTE COUNT (BEAKER) (test 0.24 K/ L 0.04-0.36 cvtt=906) BASOPHILS ABSOLUTE COUNT (BEAKER) (test 0.05 K/ L 0.01-0.08 ekvb=632) IMMATURE GRANULOCYTES-RELATIVE PERCENT (BEAKER) 1 % 0-1 (test pqzr=5467) [id number] 01:29:00 Test Item Value Reference Range Comments PHOSPHORUS (BEAKER) (test eoyb=627) 3.5 mg/dL 2.3-4.7 BASIC METABOLIC [id number] 01:29:00 Test Item Value Reference Range Comments SODIUM (BEAKER) (test 145 meq/L 136-145 wqdl=724) POTASSIUM (BEAKER) (test 3.4 meq/L 3.5-5.1 etsa=673) CHLORIDE (BEAKER) (test 107 meq/L 98-107 qxcn=595) CO2 (BEAKER) (test 26 meq/L 22-29 ptsg=239) BLOOD UREA NITROGEN 21 mg/dL 7-21 (BEAKER) (test bqgs=274) CREATININE (BEAKER) (test 1.47 mg/dL 0.57-1.25 muik=006) GLUCOSE RANDOM (BEAKER) 138 mg/dL 70-105 (test mdli=360) CALCIUM (BEAKER) (test 9.1 mg/dL 8.4-10.2 bdwh=670) EGFR (BEAKER) (test 43 mL/min/1.73 sq m ESTIMATED GFR IS NOT nqwm=9407) ACCURATE CREATININE CLEARANCE IN PREDICTING GLOMERULAR FILTRATION RATE. ESTIMATED GFR IS NOT APPLICABLE FOR DIALYSIS PATIENTS. POCT-GLUCOSE [id number] 22:08:00 Test Item Value Reference Range Comments POC-GLUCOSE METER (BEAKER) 166 mg/dL 70-[address] [facility] [address] [facility] (test xgoe=7852) [facility] [address] [id number] 21:22:00 Test Item Value Reference Range Comments MAGNESIUM (BEAKER) (test dmhi=778) 2.2 mg/dL 1.6-2.6 [id number] 19:23:00 Test Item Value Reference Range Comments PHOSPHORUS (BEAKER) (test drsh=086) 2.9 mg/dL 2.3-4.7 BASIC METABOLIC [id number] 19:23:00 Test Item Value Reference Range Comments SODIUM (BEAKER) (test 145 meq/L 136-145 uxca=737) POTASSIUM (BEAKER) (test 3.6 meq/L 3.5-5.1 bukc=140) CHLORIDE (BEAKER) (test 109 meq/L 98-107 ricl=766) CO2 (BEAKER) (test 24 meq/L 22-29 nchr=667) BLOOD UREA NITROGEN 22 mg/dL 7-21 (BEAKER) (test ijcs=106) CREATININE (BEAKER) (test 1.48 mg/dL 0.57-1.25 gryz=113) GLUCOSE RANDOM (BEAKER) 150 mg/dL 70-105 (test noqy=631) CALCIUM (BEAKER) (test 9.0 mg/dL 8.4-10.2 mfni=747) EGFR (BEAKER) (test 42 mL/min/1.73 sq m ESTIMATED GFR IS NOT jubx=1550) ACCURATE CREATININE CLEARANCE IN PREDICTING GLOMERULAR FILTRATION RATE. ESTIMATED GFR IS NOT APPLICABLE FOR DIALYSIS PATIENTS. POCT-GLUCOSE [id number] 18:13:00 Test Item Value Reference Range Comments POC-GLUCOSE METER (BEAKER) 188 mg/dL 70-[address] [facility] [address] [facility] (test ukti=3899) [facility] [address] [id number] 13:12:00 Test Item Value Reference Range Comments PHOSPHORUS (BEAKER) (test xauz=554) 2.7 mg/dL 2.3-4.7 BASIC METABOLIC [id number] 13:12:00 Test Item Value Reference Range Comments SODIUM (BEAKER) (test 144 meq/L 136-145 icor=821) POTASSIUM (BEAKER) (test 3.5 meq/L 3.5-5.1 slcr=109) CHLORIDE (BEAKER) (test 108 meq/L 98-107 uelh=019) CO2 (BEAKER) (test 26 meq/L 22-29 aigq=564) BLOOD UREA NITROGEN 23 mg/dL 7-21 (BEAKER) (test rzmm=009) CREATININE (BEAKER) (test 1.45 mg/dL 0.57-1.25 yavi=815) GLUCOSE RANDOM (BEAKER) 183 mg/dL 70-105 (test hmrv=302) CALCIUM (BEAKER) (test 8.5 mg/dL 8.4-10.2 xven=322) EGFR (BEAKER) (test 43 mL/min/1.73 sq m ESTIMATED GFR IS NOT euqb=9643) ACCURATE CREATININE CLEARANCE IN PREDICTING GLOMERULAR FILTRATION RATE. ESTIMATED GFR IS NOT APPLICABLE FOR DIALYSIS PATIENTS. POCT-GLUCOSE [id number] 12:07:00 Test Item Value Reference Range Comments POC-GLUCOSE METER (BEAKER) 203 mg/dL 70-[address] [facility] [address] [facility] (test innn=3797) [facility] [address] [id number] 09:50:00 Test Item Value Reference Range Comments MAGNESIUM (BEAKER) (test akyj=662) 2.6 mg/dL 1.6-2.6 RAD, CHEST, 1 VIEW, NON [id number] 08:06:00Reason for exam:->acute respiratory insufficiencyShould this be [...] MDReport Verified Date/Time: 07/26/2017 08:06:19 Reading Location: [facility] Reading Room POCT-GLUCOSE [id number] 07:58:00 Test Item Value Reference Range Comments POC-GLUCOSE METER (BEAKER) 176 mg/dL 70-[address] [facility] [address] [place] [address] (test gncf=0764) [facility] [address] OXYGEN SATURATION, [id number] 05:23:00 Test Item Value Reference Range Comments O2 SATURATION (MEASURED) (BEAKER) (test kvyh=3425) 64.5 % calibrationBLOOD GAS, [id number] 04:43:00 Test Item Value Reference Range Comments PH ARTERIAL (BEAKER) (test extp=516) 7.44 7.35-7.45 PCO2 ARTERIAL (BEAKER) (test acvk=033) 44 mmHg 35-45 PO2 ARTERIAL (BEAKER) (test vejg=073) 127 mmHg 80-90 O2 SATURATION ARTERIAL (BEAKER) (test zeud=953) 98.6 % 96.0-97.0 HCO3 ARTERIAL (BEAKER) (test lvki=066) 29 mmol/L 21-29 BASE EXCESS ARTERIAL (BEAKER) (test nvih=889) 4.6 mmol/L -2.0-3.0 PATIENT TEMPERATURE (BEAKER) (test qxut=4874) 37.3 C FIO2 (BEAKER) (test tqsq=2048) 100.0 % [id number] 04:31:00 Test Item Value Reference Range Comments PHOSPHORUS (BEAKER) (test rojh=737) 3.4 mg/dL 2.3-4.7 [id number] 04:31:00 Test Item Value Reference Range Comments MAGNESIUM (BEAKER) (test yvif=450) 2.2 mg/dL 1.6-2.6 BASIC METABOLIC [id number] 04:31:00 Test Item Value Reference Range Comments SODIUM (BEAKER) (test 146 meq/L 136-145 edhr=783) POTASSIUM (BEAKER) (test 3.7 meq/L 3.5-5.1 pnrb=479) CHLORIDE (BEAKER) (test 108 meq/L 98-107 uamj=597) CO2 (BEAKER) (test 28 meq/L 22-29 zwam=060) BLOOD UREA NITROGEN 23 mg/dL 7-21 (BEAKER) (test bhpy=929) CREATININE (BEAKER) (test 1.51 mg/dL 0.57-1.25 mpgu=875) GLUCOSE RANDOM (BEAKER) 151 mg/dL 70-105 (test ooqt=190) CALCIUM (BEAKER) (test 9.4 mg/dL 8.4-10.2 wcrh=413) EGFR (BEAKER) (test 41 mL/min/1.73 sq m ESTIMATED GFR IS NOT zsud=8436) ACCURATE CREATININE CLEARANCE IN PREDICTING GLOMERULAR FILTRATION RATE. ESTIMATED GFR IS NOT APPLICABLE FOR DIALYSIS PATIENTS. HEPATIC FUNCTION [id number] 04:31:00 Test Item Value Reference Range Comments TOTAL PROTEIN (BEAKER) (test nmrn=758) 6.6 gm/dL 6.0-8.3 ALBUMIN (BEAKER) (test oqmy=5316) 3.2 g/dL 3.5-5.0 BILIRUBIN TOTAL (BEAKER) (test ldep=998) 1.0 mg/dL 0.2-1.2 BILIRUBIN DIRECT (BEAKER) (test lugt=635) 0.5 mg/dL 0.1-0.5 ALKALINE PHOSPHATASE (BEAKER) (test bmmh=386) 60 U/L 40-150 AST (SGOT) (BEAKER) (test btbh=949) 25 U/L 5-34 ALT (SGPT) (BEAKER) (test jofy=309) 18 U/L 6-55 COMPREHENSIVE METABOLIC [id number] 04:31:00 Test Item Value Reference Range Comments TOTAL PROTEIN (BEAKER) 6.6 gm/dL 6.0-8.3 (test tebc=042) ALBUMIN (BEAKER) (test 3.2 g/dL 3.5-5.0 pape=2648) ALKALINE PHOSPHATASE 60 U/L 40-150 (BEAKER) (test gsmw=503) BILIRUBIN TOTAL (BEAKER) 1.0 mg/dL 0.2-1.2 (test zsdr=660) SODIUM (BEAKER) (test 146 meq/L 136-145 ukup=293) POTASSIUM (BEAKER) (test 3.7 meq/L 3.5-5.1 pqcw=721) CHLORIDE (BEAKER) (test 108 meq/L 98-107 vcnk=935) CO2 (BEAKER) (test 28 meq/L 22-29 ojfe=884) BLOOD UREA NITROGEN 23 mg/dL 7-21 (BEAKER) (test boru=554) CREATININE (BEAKER) (test 1.51 mg/dL 0.57-1.25 ggfx=369) GLUCOSE RANDOM (BEAKER) 151 mg/dL 70-105 (test fjsz=397) CALCIUM (BEAKER) (test 9.4 mg/dL 8.4-10.2 lhih=274) AST (SGOT) (BEAKER) (test 25 U/L 5-34 suao=172) ALT (SGPT) (BEAKER) (test 18 U/L 6-55 yxcr=347) EGFR (BEAKER) (test 41 mL/min/1.73 sq m ESTIMATED GFR IS NOT xplz=5047) ACCURATE CREATININE CLEARANCE IN PREDICTING GLOMERULAR FILTRATION RATE. ESTIMATED GFR IS NOT APPLICABLE FOR DIALYSIS PATIENTS. LACTATE DEHYDROGENASE (LDH)2017-07-26 04:31:00 Test Item Value Reference Range Comments LACTATE DEHYDROGENASE (BEAKER) (test cpbc=817) 661 U/L 125-220 CALCIUM, [id number] 04:23:00 Test Item Value Reference Range Comments CALCIUM IONIZED (BEAKER) (test phry=225) 1.15 mmol/L 1.12-1.27 PH, BLOOD (BEAKER) (test aqdd=4367) 7.47 CBC W/PLT COUNT & AUTO [id number] 04:20:00 Test Item Value Reference Range Comments WHITE BLOOD CELL COUNT (BEAKER) (test fwpo=493) 13.0 K/ L 3.5-10.5 RED BLOOD CELL COUNT (BEAKER) (test xaiu=157) 2.56 M/ L 3.93-5.22 HEMOGLOBIN (BEAKER) (test ispp=051) 7.6 GM/DL 11.2-15.7 HEMATOCRIT (BEAKER) (test pkmg=568) 25.4 % 34.1-44.9 MEAN CORPUSCULAR VOLUME (BEAKER) (test inen=411) 99.2 fL 79.4-94.8 MEAN CORPUSCULAR HEMOGLOBIN (BEAKER) (test 29.7 pg 25.6-32.2 xsdv=191) MEAN CORPUSCULAR HEMOGLOBIN CONC (BEAKER) (test 29.9 GM/DL 32.2-35.5 eeql=297) RED CELL DISTRIBUTION WIDTH (BEAKER) (test 15.0 % 11.7-14.4 lrmo=725) PLATELET COUNT (BEAKER) (test nzgx=545) 161 K/CU MM 150-450 MEAN PLATELET VOLUME (BEAKER) (test ryru=898) 11.0 fL 9.4-12.3 NUCLEATED RED BLOOD CELLS (BEAKER) (test 0 /100 WBC 0-0 lqag=637) NEUTROPHILS RELATIVE PERCENT (BEAKER) (test 79 % mlpq=706) LYMPHOCYTES RELATIVE PERCENT (BEAKER) (test 10 % nozs=909) MONOCYTES RELATIVE PERCENT (BEAKER) (test 7 % fxje=400) EOSINOPHILS RELATIVE PERCENT (BEAKER) (test 2 % hemq=260) BASOPHILS RELATIVE PERCENT (BEAKER) (test 1 % oron=277) NEUTROPHILS ABSOLUTE COUNT (BEAKER) (test 10.33 K/ L 1.56-6.13 cbea=897) LYMPHOCYTES ABSOLUTE COUNT (BEAKER) (test 1.35 K/ L 1.18-3.74 ahfi=975) MONOCYTES ABSOLUTE COUNT (BEAKER) (test 0.96 K/ L 0.24-0.36 frux=089) EOSINOPHILS ABSOLUTE COUNT (BEAKER) (test 0.19 K/ L 0.04-0.36 tdot=457) BASOPHILS ABSOLUTE COUNT (BEAKER) (test 0.07 K/ L 0.01-0.08 sogn=709) IMMATURE GRANULOCYTES-RELATIVE PERCENT (BEAKER) 1 % 0-1 (test wesi=6395) [id number] 21:19:00 Test Item Value Reference Range Comments PHOSPHORUS (BEAKER) (test pppv=136) 4.4 mg/dL 2.3-4.7 [id number] 21:19:00 Test Item Value Reference Range Comments MAGNESIUM (BEAKER) (test ypdy=404) 2.1 mg/dL 1.6-2.6 BASIC METABOLIC [id number] 21:19:00 Test Item Value Reference Range Comments SODIUM (BEAKER) (test 146 meq/L 136-145 uedc=257) POTASSIUM (BEAKER) (test 3.9 meq/L 3.5-5.1 iqkq=886) CHLORIDE (BEAKER) (test 108 meq/L 98-107 negz=675) CO2 (BEAKER) (test 27 meq/L 22-29 nxwt=261) BLOOD UREA NITROGEN 24 mg/dL 7-21 (BEAKER) (test apct=862) CREATININE (BEAKER) (test 1.64 mg/dL 0.57-1.25 bjgu=603) GLUCOSE RANDOM (BEAKER) 120 mg/dL 70-105 (test ptjn=601) CALCIUM (BEAKER) (test 9.5 mg/dL 8.4-10.2 lvgj=246) EGFR (BEAKER) (test 38 mL/min/1.73 sq m ESTIMATED GFR IS NOT hfpa=3233) ACCURATE CREATININE CLEARANCE IN PREDICTING GLOMERULAR FILTRATION RATE. ESTIMATED GFR IS NOT APPLICABLE FOR DIALYSIS PATIENTS. POCT-GLUCOSE [id number] 18:36:00 Test Item Value Reference Range Comments POC-GLUCOSE METER (BEAKER) 129 mg/dL 70-110 TESTED AT [address] (test fuex=6286) [place] [address] POCT-GLUCOSE [id number] 16:19:00 Test Item Value Reference Range Comments POC-GLUCOSE METER (BEAKER) 132 mg/dL 70-110 TESTED AT [address] (test kgnx=2640) [place] [address] [id number] 13:57:00 Test Item Value Reference Range Comments PHOSPHORUS (BEAKER) (test rsaq=176) 4.2 mg/dL 2.3-4.7 BASIC METABOLIC [id number] 13:57:00 Test Item Value Reference Range Comments SODIUM (BEAKER) (test 147 meq/L 136-145 djpd=585) POTASSIUM (BEAKER) (test 3.7 meq/L 3.5-5.1 njfu=441) CHLORIDE (BEAKER) (test 110 meq/L 98-107 xher=241) CO2 (BEAKER) (test 25 meq/L 22-29 jrig=731) BLOOD UREA NITROGEN 23 mg/dL 7-21 (BEAKER) (test imzc=255) CREATININE (BEAKER) (test 1.58 mg/dL 0.57-1.25 fzuf=567) GLUCOSE RANDOM (BEAKER) 129 mg/dL 70-105 (test vthp=741) CALCIUM (BEAKER) (test 9.2 mg/dL 8.4-10.2 ceha=058) EGFR (BEAKER) (test 39 mL/min/1.73 sq m ESTIMATED GFR IS NOT xjki=6564) ACCURATE CREATININE CLEARANCE IN PREDICTING GLOMERULAR FILTRATION RATE. ESTIMATED GFR IS NOT APPLICABLE FOR DIALYSIS PATIENTS. BLOOD GAS, [id number] 13:48:00 Test Item Value Reference Range Comments PH ARTERIAL (BEAKER) (test pmws=321) 7.42 7.35-7.45 PCO2 ARTERIAL (BEAKER) (test cusf=102) 47 mmHg 35-45 PO2 ARTERIAL (BEAKER) (test wsxm=300) 202 mmHg 80-90 O2 SATURATION ARTERIAL (BEAKER) (test bkvy=502) 99.4 % 96.0-97.0 HCO3 ARTERIAL (BEAKER) (test emid=953) 29 mmol/L 21-29 BASE EXCESS ARTERIAL (BEAKER) (test migs=367) 4.4 mmol/L -2.0-3.0 PATIENT TEMPERATURE (BEAKER) (test diux=1098) 37.6 C FIO2 (BEAKER) (test gpiu=7620) 100.0 % POCT-GLUCOSE [id number] 13:31:00 Test Item Value Reference Range Comments POC-GLUCOSE METER (BEAKER) 128 mg/dL 70-110 TESTED AT [address] (test ywpj=9158) [place] [id number] POCT-GLUCOSE [id number] 11:02:00 Test Item Value Reference Range Comments POC-GLUCOSE METER (BEAKER) 137 mg/dL 70-110 TESTED AT [address] (test ejfd=6313) [place] [id number] POCT-GLUCOSE [id number] 11:02:00 Test Item Value Reference Range Comments POC-GLUCOSE METER (BEAKER) 141 mg/dL 70-110 TESTED AT [address] (test kocn=6107) [place] [id number] POCT-GLUCOSE [id number] 11:02:00 Test Item Value Reference Range Comments POC-GLUCOSE METER (BEAKER) 104 mg/dL 70-110 TESTED AT [address] (test wjct=5019) [place] [id number] BLOOD [id number] 11:00:00 Test Item Value Reference Range Comments CULTURE (BEAKER) (test jtxa=5625) No growth in 5 days BLOOD [id number] 11:00:00 Test Item Value Reference Range Comments CULTURE (BEAKER) (test pnod=6063) No growth in 5 days CBC W/PLT COUNT & AUTO [id number] 08:54:00 Test Item Value Reference Range Comments WHITE BLOOD CELL COUNT (BEAKER) (test nhei=405) 13.8 K/ L 3.5-10.5 RED BLOOD CELL COUNT (BEAKER) (test xfnk=035) 2.54 M/ L 3.93-5.22 HEMOGLOBIN (BEAKER) (test xlmw=049) 7.7 GM/DL 11.2-15.7 HEMATOCRIT (BEAKER) (test eftm=507) 25.2 % 34.1-44.9 MEAN CORPUSCULAR VOLUME (BEAKER) (test lftx=832) 99.2 fL 79.4-94.8 MEAN CORPUSCULAR HEMOGLOBIN (BEAKER) (test 30.3 pg 25.6-32.2 deyp=197) MEAN CORPUSCULAR HEMOGLOBIN CONC (BEAKER) (test 30.6 GM/DL 32.2-35.5 ptyi=350) RED CELL DISTRIBUTION WIDTH (BEAKER) (test 15.2 % 11.7-14.4 qqto=052) PLATELET COUNT (BEAKER) (test brhy=502) 127 K/CU MM 150-450 MEAN PLATELET VOLUME (BEAKER) (test tien=847) 10.6 fL 9.4-12.3 NUCLEATED RED BLOOD CELLS (BEAKER) (test 0 /100 WBC 0-0 fwwo=627) NEUTROPHILS RELATIVE PERCENT (BEAKER) (test 81 % hwbg=957) LYMPHOCYTES RELATIVE PERCENT (BEAKER) (test 8 % kjte=797) MONOCYTES RELATIVE PERCENT (BEAKER) (test 9 % vxzk=722) EOSINOPHILS RELATIVE PERCENT (BEAKER) (test 1 % kija=076) BASOPHILS RELATIVE PERCENT (BEAKER) (test 0 % jwbh=974) NEUTROPHILS ABSOLUTE COUNT (BEAKER) (test 11.11 K/ L 1.56-6.13 dezj=059) LYMPHOCYTES ABSOLUTE COUNT (BEAKER) (test 1.14 K/ L 1.18-3.74 niuc=858) MONOCYTES ABSOLUTE COUNT (BEAKER) (test 1.20 K/ L 0.24-0.36 atuy=968) EOSINOPHILS ABSOLUTE COUNT (BEAKER) (test 0.15 K/ L 0.04-0.36 xyxr=163) BASOPHILS ABSOLUTE COUNT (BEAKER) (test 0.04 K/ L 0.01-0.08 rtbj=858) IMMATURE GRANULOCYTES-RELATIVE PERCENT (BEAKER) 1 % 0-1 (test qrkh=3449) BLOOD GAS, [id number] 08:40:00 Test Item Value Reference Range Comments PH ARTERIAL (BEAKER) (test svxh=524) 7.43 7.35-7.45 PCO2 ARTERIAL (BEAKER) (test gvzl=755) 35 mmHg 35-45 PO2 ARTERIAL (BEAKER) (test ejpl=584) 82 mmHg 80-90 O2 SATURATION ARTERIAL (BEAKER) (test mlvc=752) 95.7 % 96.0-97.0 HCO3 ARTERIAL (BEAKER) (test flvi=111) 22 mmol/L 21-29 BASE EXCESS ARTERIAL (BEAKER) (test mhyh=451) -1.3 mmol/L -2.0-3.0 PATIENT TEMPERATURE (BEAKER) (test eune=4686) 38.3 C FIO2 (BEAKER) (test bzds=6269) 40.0 % [id number] 06:59:00 Test Item Value Reference Range Comments PHOSPHORUS (BEAKER) (test rrmt=046) 3.4 mg/dL 2.3-4.7 [id number] 06:59:00 Test Item Value Reference Range Comments MAGNESIUM (BEAKER) (test ualo=499) 2.0 mg/dL 1.6-2.6 BASIC METABOLIC [id number] 06:59:00 Test Item Value Reference Range Comments SODIUM (BEAKER) (test 147 meq/L 136-145 limm=091) POTASSIUM (BEAKER) (test 3.7 meq/L 3.5-5.1 ewwb=452) CHLORIDE (BEAKER) (test 111 meq/L 98-107 uybd=072) CO2 (BEAKER) (test 23 meq/L 22-29 uniz=396) BLOOD UREA NITROGEN 24 mg/dL 7-21 (BEAKER) (test ycpk=547) CREATININE (BEAKER) (test 1.57 mg/dL 0.57-1.25 rrbl=617) GLUCOSE RANDOM (BEAKER) 121 mg/dL 70-105 (test qcii=820) CALCIUM (BEAKER) (test 9.0 mg/dL 8.4-10.2 alkf=816) EGFR (BEAKER) (test 39 mL/min/1.73 sq m ESTIMATED GFR IS NOT vsdp=1353) ACCURATE CREATININE CLEARANCE IN PREDICTING GLOMERULAR FILTRATION RATE. ESTIMATED GFR IS NOT APPLICABLE FOR DIALYSIS PATIENTS. POCT-GLUCOSE [id number] 06:27:00 Test Item Value Reference Range Comments POC-GLUCOSE METER (BEAKER) 95 mg/dL 70-[address] [facility] [address] [facility] (test ziqb=8201) [facility] [address] POCT-GLUCOSE [id number] 06:04:00 Test Item Value Reference Range Comments POC-GLUCOSE METER (BEAKER) 128 mg/dL 70-110 TESTED AT [address] (test maug=5172) [place] [id number] 05:36:00 Test Item Value Reference Range Comments PHOSPHORUS (BEAKER) (test iyud=350) 3.4 mg/dL 2.3-4.7 BASIC METABOLIC [id number] 05:36:00 Test Item Value Reference Range Comments SODIUM (BEAKER) (test 146 meq/L 136-145 bjep=827) POTASSIUM (BEAKER) (test 3.6 meq/L 3.5-5.1 tcqt=357) CHLORIDE (BEAKER) (test 110 meq/L 98-107 pcgp=711) CO2 (BEAKER) (test 25 meq/L 22-29 unur=985) BLOOD UREA NITROGEN 25 mg/dL 7-21 (BEAKER) (test abmn=001) CREATININE (BEAKER) (test 1.58 mg/dL 0.57-1.25 grql=768) GLUCOSE RANDOM (BEAKER) 114 mg/dL 70-105 (test stce=199) CALCIUM (BEAKER) (test 8.9 mg/dL 8.4-10.2 rpib=990) EGFR (BEAKER) (test 39 mL/min/1.73 sq m ESTIMATED GFR IS NOT pehc=5224) ACCURATE CREATININE CLEARANCE IN PREDICTING GLOMERULAR FILTRATION RATE. ESTIMATED GFR IS NOT APPLICABLE FOR DIALYSIS PATIENTS. HEPATIC FUNCTION [id number] 05:36:00 Test Item Value Reference Range Comments TOTAL PROTEIN (BEAKER) (test zyob=686) 6.3 gm/dL 6.0-8.3 ALBUMIN (BEAKER) (test itzg=9283) 3.1 g/dL 3.5-5.0 BILIRUBIN TOTAL (BEAKER) (test cule=723) 1.1 mg/dL 0.2-1.2 BILIRUBIN DIRECT (BEAKER) (test vnpq=135) 0.7 mg/dL 0.1-0.5 ALKALINE PHOSPHATASE (BEAKER) (test ovbg=206) 54 U/L 40-150 AST (SGOT) (BEAKER) (test ejou=835) 23 U/L 5-34 ALT (SGPT) (BEAKER) (test figo=020) 17 U/L 6-55 LACTATE DEHYDROGENASE (LDH)2017-07-25 05:36:00 Test Item Value Reference Range Comments LACTATE DEHYDROGENASE (BEAKER) (test ioah=922) 695 U/L 125-220 POCT-GLUCOSE [id number] 05:24:00 Test Item Value Reference Range Comments POC-GLUCOSE METER (BEAKER) 102 mg/dL 70-110 TESTED AT [address] (test qvsy=2279) [facility] [address] RAD, CHEST, 1 VIEW, NON [id number] 04:43:00Reason for exam:-> impellaShould this be performed at the bedside?->YesFINAL REPORT Chest one view. Clinical history: impella Comparison: Chest radiograph 07/24/17 Technique: A single frontal view of the chest was obtained. Findings: Cardiomediastinal contours are unchanged. Endotracheal and feeding tubes as well as a right IJ Windham-Jagdeep catheter are unchanged in position. There are patchy bibasilar opacities which may represent atelectasis and/or pneumonia. There is mild elevation of the left hemidiaphragm. There is no definite pleural effusionor pneumothorax. Signed: [facility] Verified Date/Time: 07/25/2017 04:43:27 ReadingLocation: [facility] B1 C013T Transitional Reading Room [id number] 00:51:00 Test Item Value Reference Range Comments PHOSPHORUS (BEAKER) (test iomd=074) 3.4 mg/dL 2.3-4.7 BASIC METABOLIC [id number] 00:51:00 Test Item Value Reference Range Comments SODIUM (BEAKER) (test 146 meq/L 136-145 zetf=789) POTASSIUM (BEAKER) (test 4.0 meq/L 3.5-5.1 drlh=574) CHLORIDE (BEAKER) (test 110 meq/L 98-107 ipdk=401) CO2 (BEAKER) (test 26 meq/L 22-29 bkfb=078) BLOOD UREA NITROGEN 26 mg/dL 7-21 (BEAKER) (test kqtc=286) CREATININE (BEAKER) (test 1.53 mg/dL 0.57-1.25 ikno=715) GLUCOSE RANDOM (BEAKER) 105 mg/dL 70-105 (test bnjd=840) CALCIUM (BEAKER) (test 8.8 mg/dL 8.4-10.2 pvpg=503) EGFR (BEAKER) (test 41 mL/min/1.73 sq m ESTIMATED GFR IS NOT dffd=7734) ACCURATE CREATININE CLEARANCE IN PREDICTING GLOMERULAR FILTRATION RATE. ESTIMATED GFR IS NOT APPLICABLE FOR DIALYSIS PATIENTS. POCT-GLUCOSE [id number] 00:32:00 Test Item Value Reference Range Comments POC-GLUCOSE METER (BEAKER) 119 mg/dL 70-110 TESTED AT [address] (test gnak=6580) [place] [id number] POCT-GLUCOSE [id number] 00:27:00 Test Item Value Reference Range Comments POC-GLUCOSE METER (BEAKER) 114 mg/dL 70-110 TESTED AT [address] (test lwzv=5212) [place] [id number] POCT-GLUCOSE [id number] 23:58:00 Test Item Value Reference Range Comments POC-GLUCOSE METER (BEAKER) 117 mg/dL 70-110 TESTED AT [address] (test iwzm=5031) [place] [address] [id number] 21:24:00 Test Item Value Reference Range Comments MAGNESIUM (BEAKER) (test ppto=163) 2.0 mg/dL 1.6-2.6 POCT-GLUCOSE [id number] 20:24:00 Test Item Value Reference Range Comments POC-GLUCOSE METER (BEAKER) 130 mg/dL 70-[address] [facility] [address] (test ovox=3924) [facility] [address] [id number] 19:20:00 Test Item Value Reference Range Comments POTASSIUM (BEAKER) (test boyg=530) 3.6 meq/L 3.5-5.1 [id number] 19:20:00 Test Item Value Reference Range Comments GLUCOSE RANDOM (BEAKER) (test sxdc=272) 168 mg/dL 70-105 [id number] 18:01:00 Test Item Value Reference Range Comments PHOSPHORUS (BEAKER) (test rntt=789) 3.7 mg/dL 2.3-4.7 BASIC METABOLIC [id number] 18:01:00 Test Item Value Reference Range Comments SODIUM (BEAKER) (test 145 meq/L 136-145 gluw=952) POTASSIUM (BEAKER) (test 3.9 meq/L 3.5-5.1 feqt=179) CHLORIDE (BEAKER) (test 109 meq/L 98-107 ycjs=424) CO2 (BEAKER) (test 27 meq/L 22-29 efvd=131) BLOOD UREA NITROGEN 26 mg/dL 7-21 (BEAKER) (test lpaz=482) CREATININE (BEAKER) (test 1.47 mg/dL 0.57-1.25 hnfl=375) GLUCOSE RANDOM (BEAKER) 210 mg/dL 70-105 (test swsi=452) CALCIUM (BEAKER) (test 8.5 mg/dL 8.4-10.2 visz=706) EGFR (BEAKER) (test 43 mL/min/1.73 sq m ESTIMATED GFR IS NOT zaxo=7306) ACCURATE CREATININE CLEARANCE IN PREDICTING GLOMERULAR FILTRATION RATE. ESTIMATED GFR IS NOT APPLICABLE FOR DIALYSIS PATIENTS. GLUCOSE-STAT [id number] 17:14:00 Test Item Value Reference Range Comments GLUCOSE RANDOM (BEAKER) (test laiz=727) 208 mg/dL 70-110 BLOOD GAS, [id number] 17:13:00 Test Item Value Reference Range Comments PH ARTERIAL (BEAKER) (test hkga=706) 7.44 7.35-7.45 PCO2 ARTERIAL (BEAKER) (test iqox=332) 43 mmHg 35-45 PO2 ARTERIAL (BEAKER) (test iwcu=365) 58 mmHg 80-90 O2 SATURATION ARTERIAL (BEAKER) (test iihs=896) 90.8 % 96.0-97.0 HCO3 ARTERIAL (BEAKER) (test szkj=201) 28 mmol/L 21-29 BASE EXCESS ARTERIAL (BEAKER) (test vywg=913) 3.9 mmol/L -2.0-3.0 PATIENT TEMPERATURE (BEAKER) (test yrfh=7976) 37.0 C FIO2 (BEAKER) (test jwmy=8937) 100.0 % RAD, CHEST, 1 VIEW, NON [id number] 14:00:00Reason for exam:->post intubationShould this be performed at the bedside?->YesFINAL REPORT AP chest. HISTORY: Endotracheal tube COMPARISON: 07/24/2017 IMPRESSION:Endotracheal tube projects deep in the trachea, approximately 1-2 cm above the level of the toro. Cardiomegaly similar to previous. Worsening aeration at the left lung base. Mild pulmonary vascular congestion. No pneumothorax. Signed: Mitchel Canela MDRep[facility] Verified Date/Time: 07/24/2017 14:00:17 Reading Location: [place] [id number] CT Body Reading Room [id number] 13:40:00 Test Item Value Reference Range Comments PHOSPHORUS (BEAKER) (test frwk=670) 4.3 mg/dL 2.3-4.7 [id number] 13:40:00 Test Item Value Reference Range Comments MAGNESIUM (BEAKER) (test awbs=331) 2.0 mg/dL 1.6-2.6 BASIC METABOLIC [id number] 13:40:00 Test Item Value Reference Range Comments SODIUM (BEAKER) (test 145 meq/L 136-145 kqqw=553) POTASSIUM (BEAKER) (test 3.9 meq/L 3.5-5.1 lhkx=944) CHLORIDE (BEAKER) (test 108 meq/L 98-107 jraj=045) CO2 (BEAKER) (test 24 meq/L 22-29 bsuj=389) BLOOD UREA NITROGEN 28 mg/dL 7-21 (BEAKER) (test ixlo=617) CREATININE (BEAKER) (test 1.43 mg/dL 0.57-1.25 uxbm=517) GLUCOSE RANDOM (BEAKER) 206 mg/dL 70-105 (test pzvp=145) CALCIUM (BEAKER) (test 8.5 mg/dL 8.4-10.2 ybyk=055) EGFR (BEAKER) (test 44 mL/min/1.73 sq m ESTIMATED GFR IS NOT qtrg=6151) ACCURATE CREATININE CLEARANCE IN PREDICTING GLOMERULAR FILTRATION RATE. ESTIMATED GFR IS NOT APPLICABLE FOR DIALYSIS PATIENTS. LACTIC ACID, ARTERIAL, WHOLE [id number] 13:36:00 Test Item Value Reference Range Comments LACTATE BLOOD ARTERIAL (2) (BEAKER) (test 0.7 mmol/L 0.5-2.2 flzf=8375) Effective 08/06/2015: Units/Reference Range ChangeNew: 0.5-2.2 mmol/L Previous: 5 -20 mg/dLCBC W/PLT COUNT & AUTO [id number] 13:24:00 Test Item Value Reference Range Comments WHITE BLOOD CELL COUNT (BEAKER) (test bkdp=150) 10.5 K/ L 3.5-10.5 RED BLOOD CELL COUNT (BEAKER) (test muvk=971) 2.70 M/ L 3.93-5.22 HEMOGLOBIN (BEAKER) (test rlsb=817) 8.1 GM/DL 11.2-15.7 HEMATOCRIT (BEAKER) (test cogy=355) 27.0 % 34.1-44.9 MEAN CORPUSCULAR VOLUME (BEAKER) (test bbyd=625) 100.0 fL 79.4-94.8 MEAN CORPUSCULAR HEMOGLOBIN (BEAKER) (test 30.0 pg 25.6-32.2 vmbe=901) MEAN CORPUSCULAR HEMOGLOBIN CONC (BEAKER) (test 30.0 GM/DL 32.2-35.5 ilnx=877) RED CELL DISTRIBUTION WIDTH (BEAKER) (test 14.9 % 11.7-14.4 yqsj=576) PLATELET COUNT (BEAKER) (test udtb=537) 117 K/CU MM 150-450 MEAN PLATELET VOLUME (BEAKER) (test iskv=382) 10.9 fL 9.4-12.3 NUCLEATED RED BLOOD CELLS (BEAKER) (test 0 /100 WBC 0-0 ymye=472) NEUTROPHILS RELATIVE PERCENT (BEAKER) (test 78 % uzgw=785) LYMPHOCYTES RELATIVE PERCENT (BEAKER) (test 10 % lzqg=107) MONOCYTES RELATIVE PERCENT (BEAKER) (test 10 % mwud=150) EOSINOPHILS RELATIVE PERCENT (BEAKER) (test 1 % apuc=559) BASOPHILS RELATIVE PERCENT (BEAKER) (test 0 % sadh=681) NEUTROPHILS ABSOLUTE COUNT (BEAKER) (test 8.20 K/ L 1.56-6.13 ztzj=411) LYMPHOCYTES ABSOLUTE COUNT (BEAKER) (test 1.00 K/ L 1.18-3.74 rquk=591) MONOCYTES ABSOLUTE COUNT (BEAKER) (test 1.06 K/ L 0.24-0.36 flwh=596) EOSINOPHILS ABSOLUTE COUNT (BEAKER) (test 0.09 K/ L 0.04-0.36 anzb=215) BASOPHILS ABSOLUTE COUNT (BEAKER) (test 0.04 K/ L 0.01-0.08 bmmk=534) IMMATURE GRANULOCYTES-RELATIVE PERCENT (BEAKER) 1 % 0-1 (test ivdc=2969) OXYGEN SATURATION, [id number] 13:08:00 Test Item Value Reference Range Comments O2 SATURATION (MEASURED) (BEAKER) (test rnmb=1777) 65.1 % PA catheter tipBLOOD GAS, [id number] 13:08:00 Test Item Value Reference Range Comments PH ARTERIAL (BEAKER) (test moyk=432) 7.42 7.35-7.45 PCO2 ARTERIAL (BEAKER) (test ztnh=195) 42 mmHg 35-45 PO2 ARTERIAL (BEAKER) (test cvfo=819) 239 mmHg 80-90 O2 SATURATION ARTERIAL (BEAKER) (test oyom=952) 99.6 % 96.0-97.0 HCO3 ARTERIAL (BEAKER) (test ozxx=166) 27 mmol/L 21-29 BASE EXCESS ARTERIAL (BEAKER) (test kvou=184) 2.1 mmol/L -2.0-3.0 PATIENT TEMPERATURE (BEAKER) (test cxiw=5230) 36.6 C FIO2 (BEAKER) (test edsv=6971) 100.0 % GLUCOSE-STAT [id number] 13:08:00 Test Item Value Reference Range Comments GLUCOSE RANDOM (BEAKER) (test ntte=887) 194 mg/dL 70-110 HGB/HCT (H&H) - STAT [id number] 13:08:00 Test Item Value Reference Range Comments HEMOGLOBIN (BEAKER) (test xqco=970) 8.8 g/dL 12.0-15.0 HEMATOCRIT (BEAKER) (test dted=954) 26.0 % 36.0-45.0 CALCIUM, [id number] 13:08:00 Test Item Value Reference Range Comments CALCIUM IONIZED (BEAKER) (test dfqj=517) 1.08 mmol/L 1.12-1.27 PH, BLOOD (BEAKER) (test pnzb=0222) 7.41 SODIUM NA-STAT [id number] 13:07:00 Test Item Value Reference Range Comments SODIUM (BEAKER) (test gipm=423) 140 meq/L 135-148 POTASSIUM-STAT [id number] 13:07:00 Test Item Value Reference Range Comments POTASSIUM (BEAKER) (test mbjs=927) 3.7 meq/L 3.6-5.5 SODIUM NA-STAT [id number] 11:39:00 Test Item Value Reference Range Comments SODIUM (BEAKER) (test rylt=143) 141 meq/L 135-148 POTASSIUM-STAT [id number] 11:39:00 Test Item Value Reference Range Comments POTASSIUM (BEAKER) (test gguu=424) 3.6 meq/L 3.6-5.5 BLOOD GAS, [id number] 11:39:00 Test Item Value Reference Range Comments PH ARTERIAL (BEAKER) (test zqzq=039) 7.44 7.35-7.45 PCO2 ARTERIAL (BEAKER) (test xvzg=114) 42 mmHg 35-45 PO2 ARTERIAL (BEAKER) (test wsam=313) 234 mmHg 80-90 O2 SATURATION ARTERIAL (BEAKER) (test uilt=809) 99.6 % 96.0-97.0 HCO3 ARTERIAL (BEAKER) (test wceb=105) 28 mmol/L 21-29 BASE EXCESS ARTERIAL (BEAKER) (test ujli=088) 3.4 mmol/L -2.0-3.0 PATIENT TEMPERATURE (BEAKER) (test hxus=8388) 36.8 C FIO2 (BEAKER) (test cwwn=0440) 86.0 % GLUCOSE-STAT [id number] 11:39:00 Test Item Value Reference Range Comments GLUCOSE RANDOM (BEAKER) (test lkso=816) 194 mg/dL 70-110 HGB/HCT (H&H) - STAT [id number] 11:39:00 Test Item Value Reference Range Comments HEMOGLOBIN (BEAKER) (test fpre=164) 8.8 g/dL 12.0-15.0 HEMATOCRIT (BEAKER) (test clia=330) 26.0 % 36.0-45.0 CALCIUM, [id number] 11:39:00 Test Item Value Reference Range Comments CALCIUM IONIZED (BEAKER) (test upus=705) 1.06 mmol/L 1.12-1.27 PH, BLOOD (BEAKER) (test lnjj=6155) 7.44 BLOOD GAS, [id number] 10:56:00 Test Item Value Reference Range Comments PH ARTERIAL (BEAKER) (test dijm=011) 7.43 7.35-7.45 PCO2 ARTERIAL (BEAKER) (test fidc=778) 46 mmHg 35-45 PO2 ARTERIAL (BEAKER) (test mvit=224) 223 mmHg 80-90 O2 SATURATION ARTERIAL (BEAKER) (test alxv=451) 99.5 % 96.0-97.0 HCO3 ARTERIAL (BEAKER) (test nvcu=015) 30 mmol/L 21-29 BASE EXCESS ARTERIAL (BEAKER) (test vfij=369) 4.6 mmol/L -2.0-3.0 PATIENT TEMPERATURE (BEAKER) (test bxsn=6488) 37.0 C FIO2 (BEAKER) (test efhi=9618) 100.0 % GLUCOSE-STAT [id number] 10:56:00 Test Item Value Reference Range Comments GLUCOSE RANDOM (BEAKER) (test ohie=820) 190 mg/dL 70-110 HGB/HCT (H&H) - STAT [id number] 10:56:00 Test Item Value Reference Range Comments HEMOGLOBIN (BEAKER) (test lirz=774) 8.7 g/dL 12.0-15.0 HEMATOCRIT (BEAKER) (test cttd=451) 26.0 % 36.0-45.0 SODIUM NA-STAT [id number] 10:55:00 Test Item Value Reference Range Comments SODIUM (BEAKER) (test knoe=087) 142 meq/L 135-148 POTASSIUM-STAT [id number] 10:55:00 Test Item Value Reference Range Comments POTASSIUM (BEAKER) (test qpbg=704) 3.5 meq/L 3.6-5.5 [id number] 08:41:00 Test Item Value Reference Range Comments MAGNESIUM (BEAKER) (test rteq=521) 2.0 mg/dL 1.6-2.6 BLOOD GAS, [id number] 07:57:00 Test Item Value Reference Range Comments PH ARTERIAL (BEAKER) (test iuna=491) 7.48 7.35-7.45 PCO2 ARTERIAL (BEAKER) (test dlul=487) 37 mmHg 35-45 PO2 ARTERIAL (BEAKER) (test fehw=801) 71 mmHg 80-90 O2 SATURATION ARTERIAL (BEAKER) (test vsmk=174) 94.8 % 96.0-97.0 HCO3 ARTERIAL (BEAKER) (test ssjl=748) 27 mmol/L 21-29 BASE EXCESS ARTERIAL (BEAKER) (test kyqq=019) 3.5 mmol/L -2.0-3.0 PATIENT TEMPERATURE (BEAKER) (test bxsy=6843) 37.8 C FIO2 (BEAKER) (test rcxo=5210) 32.0 % POCT-GLUCOSE [id number] 07:50:00 Test Item Value Reference Range Comments POC-GLUCOSE METER (BEAKER) 246 mg/dL 70-[address] [facility] [address] [place] [address] (test ifgh=7315) [facility] [address] RAD, CHEST, 1 VIEW, NON [id number] 04:54:00Reason for exam:-> impellaShould this be performed at the bedside?->YesFINAL REPORT CLINICAL INDICATION: Support lines. Comparison: 07/23/2017 The cardiomediastinal contours are stable. Central pulmonary vascular prominence and bilateral parenchymalopacities are similar to previous. There is no pneumothorax. Support lines are stable. Signed: Adelso Sorensen Verified Date/Time: 07/24/2017 04:54:08 Reading Location: [address] Reading Room POCT-GLUCOSE [id number] 04:08:00 Test Item Value Reference Range Comments POC-GLUCOSE METER (BEAKER) 137 mg/dL 70-[address] [facility] [address] [facility] (test nlej=2447) [facility] [address] [id number] 03:02:00 Test Item Value Reference Range Comments PHOSPHORUS (BEAKER) (test bndz=403) 3.7 mg/dL 2.3-4.7 [id number] 03:02:00 Test Item Value Reference Range Comments MAGNESIUM (BEAKER) (test xvcv=165) 2.3 mg/dL 1.6-2.6 BASIC METABOLIC [id number] 03:02:00 Test Item Value Reference Range Comments SODIUM (BEAKER) (test 145 meq/L 136-145 huxp=812) POTASSIUM (BEAKER) (test 4.0 meq/L 3.5-5.1 nuqd=256) CHLORIDE (BEAKER) (test 106 meq/L 98-107 urds=532) CO2 (BEAKER) (test 26 meq/L 22-29 lovf=707) BLOOD UREA NITROGEN 26 mg/dL 7-21 (BEAKER) (test wxkp=695) CREATININE (BEAKER) (test 1.47 mg/dL 0.57-1.25 myna=127) GLUCOSE RANDOM (BEAKER) 141 mg/dL 70-105 (test hfjw=426) CALCIUM (BEAKER) (test 9.0 mg/dL 8.4-10.2 hhen=064) EGFR (BEAKER) (test 43 mL/min/1.73 sq m ESTIMATED GFR IS NOT jjbz=3924) ACCURATE CREATININE CLEARANCE IN PREDICTING GLOMERULAR FILTRATION RATE. ESTIMATED GFR IS NOT APPLICABLE FOR DIALYSIS PATIENTS. HEPATIC FUNCTION [id number] 03:02:00 Test Item Value Reference Range Comments TOTAL PROTEIN (BEAKER) (test jhbp=078) 6.6 gm/dL 6.0-8.3 ALBUMIN (BEAKER) (test ityu=4238) 3.2 g/dL 3.5-5.0 BILIRUBIN TOTAL (BEAKER) (test desz=658) 1.2 mg/dL 0.2-1.2 BILIRUBIN DIRECT (BEAKER) (test hnrn=589) 0.6 mg/dL 0.1-0.5 ALKALINE PHOSPHATASE (BEAKER) (test pbqj=319) 55 U/L 40-150 AST (SGOT) (BEAKER) (test tvyo=227) 33 U/L 5-34 ALT (SGPT) (BEAKER) (test cmwb=876) 25 U/L 6-55 LACTATE DEHYDROGENASE (LDH)2017-07-24 03:02:00 Test Item Value Reference Range Comments LACTATE DEHYDROGENASE (BEAKER) (test zvqe=210) 879 U/L 125-220 CBC W/PLT COUNT & AUTO [id number] 02:53:00 Test Item Value Reference Range Comments WHITE BLOOD CELL COUNT (BEAKER) (test sife=453) 12.6 K/ L 3.5-10.5 RED BLOOD CELL COUNT (BEAKER) (test ohoi=317) 2.93 M/ L 3.93-5.22 HEMOGLOBIN (BEAKER) (test fqma=011) 8.7 GM/DL 11.2-15.7 HEMATOCRIT (BEAKER) (test lsoz=192) 28.3 % 34.1-44.9 MEAN CORPUSCULAR VOLUME (BEAKER) (test cayu=359) 96.6 fL 79.4-94.8 MEAN CORPUSCULAR HEMOGLOBIN (BEAKER) (test 29.7 pg 25.6-32.2 iiki=735) MEAN CORPUSCULAR HEMOGLOBIN CONC (BEAKER) (test 30.7 GM/DL 32.2-35.5 ekkc=219) RED CELL DISTRIBUTION WIDTH (BEAKER) (test 14.7 % 11.7-14.4 vuof=780) PLATELET COUNT (BEAKER) (test dtmb=842) 126 K/CU MM 150-450 MEAN PLATELET VOLUME (BEAKER) (test hygt=649) 11.0 fL 9.4-12.3 NUCLEATED RED BLOOD CELLS (BEAKER) (test 0 /100 WBC 0-0 jvnk=301) NEUTROPHILS RELATIVE PERCENT (BEAKER) (test 78 % srwp=382) LYMPHOCYTES RELATIVE PERCENT (BEAKER) (test 10 % wwtp=397) MONOCYTES RELATIVE PERCENT (BEAKER) (test 10 % ijot=585) EOSINOPHILS RELATIVE PERCENT (BEAKER) (test 1 % mhnq=774) BASOPHILS RELATIVE PERCENT (BEAKER) (test 0 % sums=679) NEUTROPHILS ABSOLUTE COUNT (BEAKER) (test 9.85 K/ L 1.56-6.13 xmlo=949) LYMPHOCYTES ABSOLUTE COUNT (BEAKER) (test 1.27 K/ L 1.18-3.74 hobp=300) MONOCYTES ABSOLUTE COUNT (BEAKER) (test 1.25 K/ L 0.24-0.36 flgr=128) EOSINOPHILS ABSOLUTE COUNT (BEAKER) (test 0.10 K/ L 0.04-0.36 izpm=776) BASOPHILS ABSOLUTE COUNT (BEAKER) (test 0.05 K/ L 0.01-0.08 cynp=808) IMMATURE GRANULOCYTES-RELATIVE PERCENT (BEAKER) 1 % 0-1 (test nuhf=0552) [id number] 02:50:00 Test Item Value Reference Range Comments PROTIME (BEAKER) (test uvoz=954) 16.7 seconds 11.7-14.7 INR (BEAKER) (test ltfn=658) 1.4 <=5.9 PARTIAL THROMBOPLASTIN TIME (BEAKER) (test 78.5 seconds 22.5-36.0 icqo=106) RECOMMENDED COUMADIN/WARFARIN INR THERAPY RANGESSTANDARD DOSE: 2.0 - 3.0 Includes: PROPHYLAXIS forvenous thrombosis, systemic embolization; TREATMENT for venous thrombosis and/or pulmonary embolus.HIGH RISK: Target INR is 2.5-3.5 for patients with mechanical heart valves.BLOOD [id number] 00:00:00 Test Item Value Reference Range Comments CULTURE (BEAKER) (test fojp=2307) No growth in 5 days BLOOD [id number] 00:00:00 Test Item Value Reference Range Comments CULTURE (BEAKER) (test shym=0366) No growth in 5 days [id number] 22:01:00 Test Item Value Reference Range Comments MAGNESIUM (BEAKER) (test pxfw=572) 2.0 mg/dL 1.6-2.6 POCT-GLUCOSE [id number] 19:39:00 Test Item Value Reference Range Comments POC-GLUCOSE METER (BEAKER) 135 mg/dL 70-[address] [facility] [address] [facility] (test lfuc=1550) [facility] [address] BASIC METABOLIC [id number] 19:08:00 Test Item Value Reference Range Comments SODIUM (BEAKER) (test 145 meq/L 136-145 whbd=630) POTASSIUM (BEAKER) (test 3.9 meq/L 3.5-5.1 ysut=012) CHLORIDE (BEAKER) (test 106 meq/L 98-107 kbhl=361) CO2 (BEAKER) (test 28 meq/L 22-29 fssx=597) BLOOD UREA NITROGEN 26 mg/dL 7-21 (BEAKER) (test fudk=330) CREATININE (BEAKER) (test 1.45 mg/dL 0.57-1.25 wqnz=521) GLUCOSE RANDOM (BEAKER) 119 mg/dL 70-105 (test scus=995) CALCIUM (BEAKER) (test 9.2 mg/dL 8.4-10.2 sfyu=123) EGFR (BEAKER) (test 43 mL/min/1.73 sq m ESTIMATED GFR IS NOT ekqo=3693) ACCURATE CREATININE CLEARANCE IN PREDICTING GLOMERULAR FILTRATION RATE. ESTIMATED GFR IS NOT APPLICABLE FOR DIALYSIS PATIENTS. [id number] 19:06:00 Test Item Value Reference Range Comments PHOSPHORUS (BEAKER) (test dwmi=661) 3.7 mg/dL 2.3-4.7 VANCOMYCIN LEVEL, [id number] 16:33:00 Test Item Value Reference Range Comments VANCOMYCIN TROUGH (BEAKER) (test mmqy=606) 17.8 ug/mL 10.0-20.0 If vancomycin trough level > 20 mcg/mL, hold next vancomycin dose, and contact MD and pharmacist.VARICELLA ZOSTER ANTIBODY, [id number] 14:47:00 Test Item Value Reference Range Comments VARICELLA ZOSTER IGG (AL) (BEAKER) (test wbtq=3186) 2.3 Al VARICELLA ZOSTER RESULT INTERPRETATIONS: <=0.8 Al Nonreactive: Presumed non-immune to VZV 0.9-1.0 Al Equivocal >=1.1 Al Reactive: Presumed immune to VZVCYTOMEGALOVIRUS ANTIBODY, [id number] 14:46:00 Test Item Value Reference Range Comments CYTOMEGALOVIRUS IGG ANTIBODY (BEAKER) (test Negative pccd=388) CYTOMEGALOVIRUS ANTIBODY, [id number] 14:46:00 Test Item Value Reference Range Comments CYTOMEGALOVIRUS IGM ANTIBODY (BEAKER) (test Negative dkfw=032) EBV-VCA ANTIBODY, [id number] 14:46:00 Test Item Value Reference Range Comments MARIO-CARMEN VCA IGG (BEAKER) (test ciwm=572) Positive EBV-VCA ANTIBODY, [id number] 14:46:00 Test Item Value Reference Range Comments MARIO-CARMEN VCA IGM (BEAKER) (test zssw=768) Negative HERPES VIRUS ANTIBODY, [id number] 14:45:00 Test Item Value Reference Range Comments HERPES VIRUS IGG (BEAKER) (test tylj=6927) Negative HSV IgG 1=NEGATIVEHSV IgG 2=NEGATIVETOXOPLASMA GONDII ANTIBODY, [id number] 14 :45:00 Test Item Value Reference Range Comments TOXOPLASMA GONDII IGG (BEAKER) (test wgau=329) Negative [id number] 14:37:00 Test Item Value Reference Range Comments PARTIAL THROMBOPLASTIN TIME (BEAKER) (test 69.5 seconds 22.5-36.0 affl=717) OCCULT BLOOD, [id number] 14:34:00 Test Item Value Reference Range Comments FECAL OCCULT BLOOD (BEAKER) (test svoo=532) Negative Negative POCT-GLUCOSE [id number] 14:20:00 Test Item Value Reference Range Comments POC-GLUCOSE METER (BEAKER) 166 mg/dL 70-110 TESTED AT [address] (test zcdo=3330) [facility] [address] POCT-GLUCOSE [id number] 14:20:00 Test Item Value Reference Range Comments POC-GLUCOSE METER (BEAKER) 82 mg/dL 70-110 TESTED AT [address] (test pllk=2040) [facility] [address] [id number] 13:00:00 Test Item Value Reference Range Comments PHOSPHORUS (BEAKER) (test wiau=871) 3.2 mg/dL 2.3-4.7 BASIC METABOLIC [id number] 13:00:00 Test Item Value Reference Range Comments SODIUM (BEAKER) (test 143 meq/L 136-145 wdxu=689) POTASSIUM (BEAKER) (test 3.8 meq/L 3.5-5.1 mqnk=375) CHLORIDE (BEAKER) (test 104 meq/L 98-107 rnmn=303) CO2 (BEAKER) (test 29 meq/L 22-29 vwzv=581) BLOOD UREA NITROGEN 28 mg/dL 7-21 (BEAKER) (test ljnr=185) CREATININE (BEAKER) (test 1.44 mg/dL 0.57-1.25 orxp=517) GLUCOSE RANDOM (BEAKER) 171 mg/dL 70-105 (test rgcy=404) CALCIUM (BEAKER) (test 9.1 mg/dL 8.4-10.2 xbxa=365) EGFR (BEAKER) (test 44 mL/min/1.73 sq m ESTIMATED GFR IS NOT froh=0679) ACCURATE CREATININE CLEARANCE IN PREDICTING GLOMERULAR FILTRATION RATE. ESTIMATED GFR IS NOT APPLICABLE FOR DIALYSIS PATIENTS. POCT-GLUCOSE [id number] 12:29:00 Test Item Value Reference Range Comments POC-GLUCOSE METER (BEAKER) 179 mg/dL 70-110 TESTED AT [address] (test ohuv=5677) [facility] [address] CREATININE [id number] 11:15:00 Test Item Value Reference Range Comments CREATININE CLEARANCE (BEAKER) 45.8 mL/min 70.0-140.0 (test deht=058) VOLUME, TOTAL (BEAKER) (test 3400 ml xnfb=6779) CREATININE URINE (BEAKER) (test 36.8 mg/dL nkro=281) [id number] (BEAKER) Анна Encarnacion MD (test tcpp=1679) (electronic signature) PATIENT HEIGHT (CM) (BEAKER) 165.1 cm (test ohcq=9334) PATIENT WEIGHT (KG) (BEAKER) 84.100 kg (test eqhx=3805) [id number] 09:15:00 Test Item Value Reference Range Comments POTASSIUM (BEAKER) (test tmbx=345) 4.1 meq/L 3.5-5.1 PRN - repeat potassium levels every 1 hour until glucose level is less than 450 mg/[id number] 09:15:00 Test Item Value Reference Range Comments MAGNESIUM (BEAKER) (test ckhz=407) 2.4 mg/dL 1.6-2.6 PRN - repeat potassium levels every 1 hour until glucose level is less than 450 mg/dLPOCT-GLUCOSE [id number] 08:47:00 Test Item Value Reference Range Comments POC-GLUCOSE METER (BEAKER) 155 mg/dL 70-110 TESTED AT [address] (test ohuc=5209) [facility] [address] POCT-GLUCOSE [id number] 06:12:00 Test Item Value Reference Range Comments POC-GLUCOSE METER (BEAKER) 143 mg/dL 70-[address] [facility] [address] [facility] (test wkvp=7895) [facility] [address] POCT-GLUCOSE [id number] 06:12:00 Test Item Value Reference Range Comments POC-GLUCOSE METER (BEAKER) 123 mg/dL 70-[address] [facility] [address] [facility] (test cpdp=7572) [facility] [address] RAD, CHEST, 1 VIEW, NON [id number] 05:36:00Reason for exam:->respiratory insufficiencyFINAL REPORT Chest one view. Clinical history: respiratory insufficiency Comparison: Chest radiograph 07/22/2017 Technique: A single frontal view of the chest was obtained. Findings: Cardiomediastinal contours are unchanged. There is a right IJ Windham-Jagdeep catheter, with tip inthe right pulmonary artery. [...] Ramirez Verified Date/Time: 07/23/2017 05:36:35 Reading Location: [address] Reading Room CALCIUM, [id number] 05:19:00 Test Item Value Reference Range Comments CALCIUM IONIZED (BEAKER) (test sank=489) 1.12 mmol/L 1.12-1.27 PH, BLOOD (BEAKER) (test issw=1748) 7.40 OXYGEN SATURATION, [id number] 05:18:00 Test Item Value Reference Range Comments O2 SATURATION (MEASURED) (BEAKER) (test ttlk=8269) 63.1 % POCT-GLUCOSE [id number] 05:05:00 Test Item Value Reference Range Comments POC-GLUCOSE METER (BEAKER) 131 mg/dL 70-[address] [facility] [address] (test uryi=3758) [place] [address] BLOOD GAS, [id number] 04:58:00 Test Item Value Reference Range Comments PH ARTERIAL (BEAKER) (test pwaa=396) 7.41 7.35-7.45 PCO2 ARTERIAL (BEAKER) (test ypms=217) 51 mmHg 35-45 PO2 ARTERIAL (BEAKER) (test awhp=499) 93 mmHg 80-90 O2 SATURATION ARTERIAL (BEAKER) (test pafg=795) 96.9 % 96.0-97.0 HCO3 ARTERIAL (BEAKER) (test mpmj=425) 31 mmol/L 21-29 BASE EXCESS ARTERIAL (BEAKER) (test kojm=099) 5.9 mmol/L -2.0-3.0 PATIENT TEMPERATURE (BEAKER) (test hesv=5470) 37.4 C FIO2 (BEAKER) (test euxz=1426) 70.0 % [id number] 03:35:00 Test Item Value Reference Range Comments PARTIAL THROMBOPLASTIN TIME (BEAKER) (test 70.8 seconds 22.5-36.0 ffmj=978) [id number] 03:34:00 Test Item Value Reference Range Comments PHOSPHORUS (BEAKER) (test xanf=695) 3.0 mg/dL 2.3-4.7 [id number] 03:34:00 Test Item Value Reference Range Comments MAGNESIUM (BEAKER) (test ltik=218) 2.1 mg/dL 1.6-2.6 BASIC METABOLIC [id number] 03:34:00 Test Item Value Reference Range Comments SODIUM (BEAKER) (test 144 meq/L 136-145 akvg=429) POTASSIUM (BEAKER) (test 3.9 meq/L 3.5-5.1 gjpc=302) CHLORIDE (BEAKER) (test 105 meq/L 98-107 baah=071) CO2 (BEAKER) (test 29 meq/L 22-29 gfiq=379) BLOOD UREA NITROGEN 29 mg/dL 7-21 (BEAKER) (test clmz=655) CREATININE (BEAKER) (test 1.54 mg/dL 0.57-1.25 ncqx=149) GLUCOSE RANDOM (BEAKER) 119 mg/dL 70-105 (test qmrm=111) CALCIUM (BEAKER) (test 9.1 mg/dL 8.4-10.2 dzwn=900) EGFR (BEAKER) (test 40 mL/min/1.73 sq m ESTIMATED GFR IS NOT phrw=6944) ACCURATE CREATININE CLEARANCE IN PREDICTING GLOMERULAR FILTRATION RATE. ESTIMATED GFR IS NOT APPLICABLE FOR DIALYSIS PATIENTS. HEPATIC FUNCTION [id number] 03:34:00 Test Item Value Reference Range Comments TOTAL PROTEIN (BEAKER) (test ycfv=149) 6.7 gm/dL 6.0-8.3 ALBUMIN (BEAKER) (test fumr=3943) 3.3 g/dL 3.5-5.0 BILIRUBIN TOTAL (BEAKER) (test tqww=904) 1.2 mg/dL 0.2-1.2 BILIRUBIN DIRECT (BEAKER) (test glwr=320) 0.6 mg/dL 0.1-0.5 ALKALINE PHOSPHATASE (BEAKER) (test shuw=067) 51 U/L 40-150 AST (SGOT) (BEAKER) (test hyzx=535) 48 U/L 5-34 ALT (SGPT) (BEAKER) (test ovfc=910) 29 U/L 6-55 LACTATE DEHYDROGENASE (LDH)2017-07-23 03:34:00 Test Item Value Reference Range Comments LACTATE DEHYDROGENASE (BEAKER) (test sjbl=632) 1020 U/L 125-220 CBC W/PLT COUNT & AUTO [id number] 03:25:00 Test Item Value Reference Range Comments WHITE BLOOD CELL COUNT (BEAKER) (test acfq=232) 11.7 K/ L 3.5-10.5 RED BLOOD CELL COUNT (BEAKER) (test amzs=431) 3.01 M/ L 3.93-5.22 HEMOGLOBIN (BEAKER) (test yqaw=252) 9.0 GM/DL 11.2-15.7 HEMATOCRIT (BEAKER) (test xffu=505) 28.9 % 34.1-44.9 MEAN CORPUSCULAR VOLUME (BEAKER) (test dcli=507) 96.0 fL 79.4-94.8 MEAN CORPUSCULAR HEMOGLOBIN (BEAKER) (test 29.9 pg 25.6-32.2 jgua=415) MEAN CORPUSCULAR HEMOGLOBIN CONC (BEAKER) (test 31.1 GM/DL 32.2-35.5 wgji=158) RED CELL DISTRIBUTION WIDTH (BEAKER) (test 15.0 % 11.7-14.4 zzwo=908) PLATELET COUNT (BEAKER) (test gkrb=387) 128 K/CU MM 150-450 MEAN PLATELET VOLUME (BEAKER) (test mryd=753) 11.3 fL 9.4-12.3 NUCLEATED RED BLOOD CELLS (BEAKER) (test 0 /100 WBC 0-0 gafz=917) NEUTROPHILS RELATIVE PERCENT (BEAKER) (test 78 % gdyk=650) LYMPHOCYTES RELATIVE PERCENT (BEAKER) (test 11 % eosc=389) MONOCYTES RELATIVE PERCENT (BEAKER) (test 10 % dwqr=047) EOSINOPHILS RELATIVE PERCENT (BEAKER) (test 1 % bzib=085) BASOPHILS RELATIVE PERCENT (BEAKER) (test 0 % qnth=575) NEUTROPHILS ABSOLUTE COUNT (BEAKER) (test 9.07 K/ L 1.56-6.13 dsqd=075) LYMPHOCYTES ABSOLUTE COUNT (BEAKER) (test 1.25 K/ L 1.18-3.74 cyjb=708) MONOCYTES ABSOLUTE COUNT (BEAKER) (test 1.12 K/ L 0.24-0.36 kvbs=681) EOSINOPHILS ABSOLUTE COUNT (BEAKER) (test 0.12 K/ L 0.04-0.36 udce=683) BASOPHILS ABSOLUTE COUNT (BEAKER) (test 0.05 K/ L 0.01-0.08 wmpc=659) IMMATURE GRANULOCYTES-RELATIVE PERCENT (BEAKER) 1 % 0-1 (test kevy=3443) POCT-GLUCOSE [id number] 03:09:00 Test Item Value Reference Range Comments POC-GLUCOSE METER (BEAKER) 114 mg/dL 70-110 TESTED AT [address] (test lilc=0258) [place] [id number] POCT-GLUCOSE [id number] 03:09:00 Test Item Value Reference Range Comments POC-GLUCOSE METER (BEAKER) 122 mg/dL 70-110 TESTED AT [address] (test raek=4573) [place] [id number] BASIC METABOLIC [id number] 00:32:00 Test Item Value Reference Range Comments SODIUM (BEAKER) (test 144 meq/L 136-145 uqlr=671) POTASSIUM (BEAKER) (test 4.2 meq/L 3.5-5.1 inge=803) CHLORIDE (BEAKER) (test 105 meq/L 98-107 trcz=346) CO2 (BEAKER) (test 28 meq/L 22-29 obkg=705) BLOOD UREA NITROGEN 30 mg/dL 7-21 (BEAKER) (test azph=338) CREATININE (BEAKER) (test 1.56 mg/dL 0.57-1.25 kgsy=869) GLUCOSE RANDOM (BEAKER) 131 mg/dL 70-105 (test ehyx=278) CALCIUM (BEAKER) (test 9.0 mg/dL 8.4-10.2 xasm=608) EGFR (BEAKER) (test 40 mL/min/1.73 sq m ESTIMATED GFR IS NOT hbxx=2823) ACCURATE CREATININE CLEARANCE IN PREDICTING GLOMERULAR FILTRATION RATE. ESTIMATED GFR IS NOT APPLICABLE FOR DIALYSIS PATIENTS. [id number] 00:31:00 Test Item Value Reference Range Comments PHOSPHORUS (BEAKER) (test vfmw=864) 3.4 mg/dL 2.3-4.7 POCT-GLUCOSE [id number] 00:10:00 Test Item Value Reference Range Comments POC-GLUCOSE METER (BEAKER) 140 mg/dL 70-110 TESTED AT [address] (test pusd=5964) [place] [id number] POCT-GLUCOSE [id number] 00:08:00 Test Item Value Reference Range Comments POC-GLUCOSE METER (BEAKER) 121 mg/dL 70-110 TESTED AT [address] (test tiew=0302) [place] [id number] POCT-GLUCOSE [id number] 00:08:00 Test Item Value Reference Range Comments POC-GLUCOSE METER (BEAKER) 112 mg/dL 70-110 TESTED AT [address] (test rpta=3566) [facility] [id number] POCT-GLUCOSE [id number] 00:08:00 Test Item Value Reference Range Comments POC-GLUCOSE METER (BEAKER) 84 mg/dL 70-110 TESTED AT [address] (test bxpv=4880) [facility] [id number] BASIC METABOLIC [id number] 20:36:00 Test Item Value Reference Range Comments SODIUM (BEAKER) (test 145 meq/L 136-145 eqjs=556) POTASSIUM (BEAKER) (test 3.6 meq/L 3.5-5.1 bted=239) CHLORIDE (BEAKER) (test 106 meq/L 98-107 layi=053) CO2 (BEAKER) (test 31 meq/L 22-29 jqyi=239) BLOOD UREA NITROGEN 32 mg/dL 7-21 (BEAKER) (test qatg=515) CREATININE (BEAKER) (test 1.56 mg/dL 0.57-1.25 njjp=588) GLUCOSE RANDOM (BEAKER) 85 mg/dL 70-105 (test fove=405) CALCIUM (BEAKER) (test 9.0 mg/dL 8.4-10.2 jayz=496) EGFR (BEAKER) (test 40 mL/min/1.73 sq m ESTIMATED GFR IS NOT ponq=7927) ACCURATE CREATININE CLEARANCE IN PREDICTING GLOMERULAR FILTRATION RATE. ESTIMATED GFR IS NOT APPLICABLE FOR DIALYSIS PATIENTS. [id number] 20:36:00 Test Item Value Reference Range Comments MAGNESIUM (BEAKER) (test yqph=928) 2.4 mg/dL 1.6-2.6 [id number] 18:26:00 Test Item Value Reference Range Comments PHOSPHORUS (BEAKER) (test cjfd=002) 2.4 mg/dL 2.3-4.7 BASIC METABOLIC [id number] 18:26:00 Test Item Value Reference Range Comments SODIUM (BEAKER) (test 144 meq/L 136-145 urby=638) POTASSIUM (BEAKER) (test 3.9 meq/L 3.5-5.1 crhd=858) CHLORIDE (BEAKER) (test 106 meq/L 98-107 cdxq=569) CO2 (BEAKER) (test 30 meq/L 22-29 kfer=097) BLOOD UREA NITROGEN 32 mg/dL 7-21 (BEAKER) (test pfxo=674) CREATININE (BEAKER) (test 1.67 mg/dL 0.57-1.25 tkww=313) GLUCOSE RANDOM (BEAKER) 141 mg/dL 70-105 (test hwmq=902) CALCIUM (BEAKER) (test 9.1 mg/dL 8.4-10.2 ogud=089) EGFR (BEAKER) (test 37 mL/min/1.73 sq m ESTIMATED GFR IS NOT xrdg=2283) ACCURATE CREATININE CLEARANCE IN PREDICTING GLOMERULAR FILTRATION RATE. ESTIMATED GFR IS NOT APPLICABLE FOR DIALYSIS PATIENTS. LACTIC ACID, ARTERIAL, WHOLE [id number] 18:22:00 Test Item Value Reference Range Comments LACTATE BLOOD ARTERIAL (2) (BEAKER) (test 1.0 mmol/L 0.5-2.2 iqyh=0957) Effective 08/06/2015: Units/Reference Range ChangeNew: 0.5-2.2 mmol/L Previous: 5 -20 mg/dLPOCT-GLUCOSE [id number] 17:56:00 Test Item Value Reference Range Comments POC-GLUCOSE METER (BEAKER) 138 mg/dL 70-110 TESTED AT [address] (test sugj=7783) [place] [address] [id number] 16:19:00 Test Item Value Reference Range Comments POTASSIUM (BEAKER) (test wvnl=872) 3.8 meq/L 3.5-5.1 PRN - repeat potassium levels every 1 hour until glucose level is less than 450 mg/[id number] 16:06:00 Test Item Value Reference Range Comments PARTIAL THROMBOPLASTIN TIME (BEAKER) (test 71.3 seconds 22.5-36.0 zxgy=668) OXYGEN SATURATION, [id number] 15:58:00 Test Item Value Reference Range Comments O2 SATURATION (MEASURED) (BEAKER) (test inuq=5451) 58.6 % calibrationPOCT-GLUCOSE [id number] 15:51:00 Test Item Value Reference Range Comments POC-GLUCOSE METER (BEAKER) 147 mg/dL 70-110 TESTED AT [address] (test vrjf=6781) [place] [address] RAD, CHEST, 1 VIEW, NON [id number] 14:57:00Reason for exam:->s/p CVC placement Should this be performed at the bedside?->YesFINAL REPORT TECHNIQUE: Frontal chest radiograph dated 07/22/2017. CLINICAL HISTORY: CVC placement COMPARISON STUDY: Chest radiograph performed earlier the same day. IMPRESSION:There has been interval placement of a right-sided [place]- Jagdeep catheter with the tip in the main pulmonary artery. Impella device is unchanged in appearance. There is left lung base atelectasis. No pleural effusion or pneumothorax. Cardiomediastinal silhouette is normal in size. No pulmonary edema. Bonesare osteopenic. No fracture. Signed: Dawson Noel MDReport Verified Date/Time: 07/22/2017 14:57:48 Reading Location: [facility] Radiology Reading Room PROTEIN ELECTROPHORESIS, [id number] 14:45:00 Test Item Value Reference Range Comments ALBUMIN FRACTION (BEAKER) 3.0 g/dL 3.5-5.5 (test cwjk=645) ALPHA 1 FRACTION (BEAKER) 0.4 g/dL 0.2-0.4 (test zrqe=201) ALPHA 2 FRACTION (BEAKER) 0.5 g/dL 0.5-0.9 (test qlgo=416) BETA FRACTION (BEAKER) (test 1.0 g/dL 0.6-1.1 ycqk=900) GAMMA GLOBULIN FRACTION 1.2 g/dL 0.7-1.7 (BEAKER) (test qgik=770) INTERPRETATION-119 (BEAKER) Albumin decreased. Alpha (test mciv=5211) globulin percentages increased. This suggests an acute phase response. AEXF-WWHDJMPHITK-432 (BEAKER) Анна Encarnacion MD (electronic (test arek=6411) signature) PROTEIN TOTAL SERUM, SPEP 6.1 gm/dL 6.0-8.3 (BEAKER) (test ukvd=2919) POCT-GLUCOSE [id number] 14:34:00 Test Item Value Reference Range Comments POC-GLUCOSE METER (BEAKER) 137 mg/dL 70-110 TESTED AT [address] (test ioou=4839) [facility] [address] ANTI-NUCLEAR ANTIBODY (ROSLYN)2017-07-22 13:24:00 Test Item Value Reference Range Comments ANTI-NUCLEAR ANTIBODY (ROSLYN) (BEAKER) (test Positive Negative qsbk=021) ROSLYN TITER AND [id number] 13:24:00 Test Item Value Reference Range Comments ROSLYN TITER (BEAKER) (test hoqa=2122) :640 ROSLYN PATTERN (BEAKER) (test zmxs=2610) Homogeneous [id number] 12:50:00 Test Item Value Reference Range Comments PHOSPHORUS (BEAKER) (test zekv=369) 2.5 mg/dL 2.3-4.7 BASIC METABOLIC [id number] 12:50:00 Test Item Value Reference Range Comments SODIUM (BEAKER) (test 145 meq/L 136-145 ekoc=589) POTASSIUM (BEAKER) (test 3.6 meq/L 3.5-5.1 ecah=911) CHLORIDE (BEAKER) (test 107 meq/L 98-107 fhnl=070) CO2 (BEAKER) (test 30 meq/L 22-29 nksv=885) BLOOD UREA NITROGEN 37 mg/dL 7-21 (BEAKER) (test vokk=685) CREATININE (BEAKER) (test 1.69 mg/dL 0.57-1.25 ujkx=223) GLUCOSE RANDOM (BEAKER) 154 mg/dL 70-105 (test thsp=123) CALCIUM (BEAKER) (test 8.9 mg/dL 8.4-10.2 bxif=378) EGFR (BEAKER) (test 36 mL/min/1.73 sq m ESTIMATED GFR IS NOT zjnj=1748) ACCURATE CREATININE CLEARANCE IN PREDICTING GLOMERULAR FILTRATION RATE. ESTIMATED GFR IS NOT APPLICABLE FOR DIALYSIS PATIENTS. BLOOD GAS, [id number] 12:36:00 Test Item Value Reference Range Comments PH ARTERIAL (BEAKER) (test gqvg=213) 7.48 7.35-7.45 PCO2 ARTERIAL (BEAKER) (test pzyq=111) 44 mmHg 35-45 PO2 ARTERIAL (BEAKER) (test wqoz=804) 156 mmHg 80-90 O2 SATURATION ARTERIAL (BEAKER) (test dlnp=166) 99.1 % 96.0-97.0 HCO3 ARTERIAL (BEAKER) (test gjfh=116) 32 mmol/L 21-29 BASE EXCESS ARTERIAL (BEAKER) (test bjlb=443) 7.4 mmol/L -2.0-3.0 PATIENT TEMPERATURE (BEAKER) (test pljx=1243) 37.4 C FIO2 (BEAKER) (test bizn=4410) 80.0 % POCT-GLUCOSE [id number] 12:26:00 Test Item Value Reference Range Comments POC-GLUCOSE METER (BEAKER) 147 mg/dL 70-[address] [facility] [address] [facility] (test nuyp=5935) [facility] [address] URINE [id number] 11:56:00 Test Item Value Reference Range Comments CULTURE (BEAKER) (test mbqq=6071) No growth POCT-GLUCOSE [id number] 11:11:00 Test Item Value Reference Range Comments POC-GLUCOSE METER (BEAKER) 172 mg/dL 70-110 TESTED AT [address] (test mdsu=5743) [place] [id number] POCT-GLUCOSE [id number] 09:54:00 Test Item Value Reference Range Comments POC-GLUCOSE METER (BEAKER) 196 mg/dL 70-110 TESTED AT [address] (test gzqe=0665) [place] [address] LACTIC ACID, ARTERIAL, WHOLE [id number] 09:07:00 Test Item Value Reference Range Comments LACTATE BLOOD ARTERIAL (2) (BEAKER) (test 0.7 mmol/L 0.5-2.2 frcq=3511) Effective 08/06/2015: Units/Reference Range ChangeNew: 0.5-2.2 mmol/L Previous: 5 -20 mg/[id number] 09:06:00 Test Item Value Reference Range Comments MAGNESIUM (BEAKER) (test hogj=619) 2.2 mg/dL 1.6-2.6 POCT-GLUCOSE [id number] 08:39:00 Test Item Value Reference Range Comments POC-GLUCOSE METER (BEAKER) 188 mg/dL 70-110 TESTED AT [address] (test oumm=9775) [place] [id number] POCT-GLUCOSE [id number] 08:37:00 Test Item Value Reference Range Comments POC-GLUCOSE METER (BEAKER) 195 mg/dL 70-110 TESTED AT [address] (test trgx=3758) [place] [id number] BLOOD GAS, [id number] 06:46:00 Test Item Value Reference Range Comments PH ARTERIAL (BEAKER) (test jfvd=914) 7.47 7.35-7.45 PCO2 ARTERIAL (BEAKER) (test ydfc=576) 44 mmHg 35-45 PO2 ARTERIAL (BEAKER) (test tbdj=727) 57 mmHg 80-90 O2 SATURATION ARTERIAL (BEAKER) (test ydel=923) 91.1 % 96.0-97.0 HCO3 ARTERIAL (BEAKER) (test evgj=323) 32 mmol/L 21-29 BASE EXCESS ARTERIAL (BEAKER) (test kltd=964) 7.1 mmol/L -2.0-3.0 PATIENT TEMPERATURE (BEAKER) (test ciey=1173) 37.0 C [id number] 06:14:00 Test Item Value Reference Range Comments RPR SCREEN (BEAKER) (test isye=981) Nonreactive Nonreactive CALCIUM, [id number] 05:52:00 Test Item Value Reference Range Comments CALCIUM IONIZED (BEAKER) (test jujf=985) 1.13 mmol/L 1.12-1.27 PH, BLOOD (BEAKER) (test vcwu=3222) 7.46 [id number] 05:42:00 Test Item Value Reference Range Comments PHOSPHORUS (BEAKER) (test myjw=983) 2.2 mg/dL 2.3-4.7 [id number] 05:42:00 Test Item Value Reference Range Comments MAGNESIUM (BEAKER) (test rprb=562) 2.1 mg/dL 1.6-2.6 HEPATIC FUNCTION [id number] 05:42:00 Test Item Value Reference Range Comments TOTAL PROTEIN (BEAKER) (test iblz=838) 6.2 gm/dL 6.0-8.3 ALBUMIN (BEAKER) (test edsl=3545) 3.1 g/dL 3.5-5.0 BILIRUBIN TOTAL (BEAKER) (test qvfx=705) 1.4 mg/dL 0.2-1.2 BILIRUBIN DIRECT (BEAKER) (test fghi=809) 0.7 mg/dL 0.1-0.5 ALKALINE PHOSPHATASE (BEAKER) (test esnq=230) 49 U/L 40-150 AST (SGOT) (BEAKER) (test wami=115) 74 U/L 5-34 ALT (SGPT) (BEAKER) (test sdan=459) 37 U/L 6-55 LACTATE DEHYDROGENASE (LDH)2017-07-22 05:42:00 Test Item Value Reference Range Comments LACTATE DEHYDROGENASE (BEAKER) (test jfir=223) 1339 U/L 125-220 [id number] 05:40:00 Test Item Value Reference Range Comments PHOSPHORUS (BEAKER) (test rwxe=751) 2.2 mg/dL 2.3-4.7 BASIC METABOLIC [id number] 05:40:00 Test Item Value Reference Range Comments SODIUM (BEAKER) (test 144 meq/L 136-145 qyxu=606) POTASSIUM (BEAKER) (test 4.0 meq/L 3.5-5.1 uyka=822) CHLORIDE (BEAKER) (test 107 meq/L 98-107 wyqr=665) CO2 (BEAKER) (test 28 meq/L 22-29 gfrt=104) BLOOD UREA NITROGEN 36 mg/dL 7-21 (BEAKER) (test bbfs=361) CREATININE (BEAKER) (test 1.79 mg/dL 0.57-1.25 bfjm=060) GLUCOSE RANDOM (BEAKER) 183 mg/dL 70-105 (test gzgg=161) CALCIUM (BEAKER) (test 8.9 mg/dL 8.4-10.2 optx=438) EGFR (BEAKER) (test 34 mL/min/1.73 sq m ESTIMATED GFR IS NOT cmki=7878) ACCURATE CREATININE CLEARANCE IN PREDICTING GLOMERULAR FILTRATION RATE. ESTIMATED GFR IS NOT APPLICABLE FOR DIALYSIS PATIENTS. OXYGEN SATURATION, [id number] 05:29:00 Test Item Value Reference Range Comments O2 SATURATION (MEASURED) (BEAKER) (test dfjf=8324) 54.7 % [id number] 05:29:00 Test Item Value Reference Range Comments PARTIAL THROMBOPLASTIN TIME (BEAKER) (test 70.7 seconds 22.5-36.0 bzyy=849) CBC W/PLT COUNT & AUTO [id number] 05:24:00 Test Item Value Reference Range Comments WHITE BLOOD CELL COUNT (BEAKER) (test yawt=790) 13.0 K/ L 3.5-10.5 RED BLOOD CELL COUNT (BEAKER) (test iuzl=442) 3.04 M/ L 3.93-5.22 HEMOGLOBIN (BEAKER) (test rahk=185) 9.0 GM/DL 11.2-15.7 HEMATOCRIT (BEAKER) (test xsam=738) 29.0 % 34.1-44.9 MEAN CORPUSCULAR VOLUME (BEAKER) (test dadc=826) 95.4 fL 79.4-94.8 MEAN CORPUSCULAR HEMOGLOBIN (BEAKER) (test 29.6 pg 25.6-32.2 kxky=826) MEAN CORPUSCULAR HEMOGLOBIN CONC (BEAKER) (test 31.0 GM/DL 32.2-35.5 wibw=398) RED CELL DISTRIBUTION WIDTH (BEAKER) (test 15.5 % 11.7-14.4 ynim=460) PLATELET COUNT (BEAKER) (test lslc=328) 132 K/CU MM 150-450 MEAN PLATELET VOLUME (BEAKER) (test qdbh=504) 11.4 fL 9.4-12.3 NUCLEATED RED BLOOD CELLS (BEAKER) (test 0 /100 WBC 0-0 pulb=819) NEUTROPHILS RELATIVE PERCENT (BEAKER) (test 80 % rtdn=530) LYMPHOCYTES RELATIVE PERCENT (BEAKER) (test 10 % dhtk=003) MONOCYTES RELATIVE PERCENT (BEAKER) (test 9 % vijv=421) EOSINOPHILS RELATIVE PERCENT (BEAKER) (test 0 % qmrf=126) BASOPHILS RELATIVE PERCENT (BEAKER) (test 0 % hvqv=076) NEUTROPHILS ABSOLUTE COUNT (BEAKER) (test 10.44 K/ L 1.56-6.13 rfdy=235) LYMPHOCYTES ABSOLUTE COUNT (BEAKER) (test 1.29 K/ L 1.18-3.74 meqi=915) MONOCYTES ABSOLUTE COUNT (BEAKER) (test 1.12 K/ L 0.24-0.36 uzcj=815) EOSINOPHILS ABSOLUTE COUNT (BEAKER) (test 0.01 K/ L 0.04-0.36 iwjx=665) BASOPHILS ABSOLUTE COUNT (BEAKER) (test 0.04 K/ L 0.01-0.08 lsiw=818) IMMATURE GRANULOCYTES-RELATIVE PERCENT (BEAKER) 1 % 0-1 (test cwfn=0052) RAD, CHEST, 1 VIEW, NON [id number] 04:45:00Reason for exam:->respiratory insufficiencyFINAL REPORT CLINICAL INDICATION: Respiratory insufficiency Comparison: 07/21/2017 The cardiomediastinal contours are stable. The left hemidiaphragm is slightly elevated. Centralpulmonary vascular congestion and bilateral parenchymal opacities are unchanged. There is no pneumothorax. A femoral Impella device remains in place. Signed: Adelso Sorensen Verified Date/Time:07/22/2017 04:45:12 Reading Location: [address] Reading Room POCT-GLUCOSE [id number] 03:01:00 Test Item Value Reference Range Comments POC-GLUCOSE METER (BEAKER) 115 mg/dL 70-110 TESTED AT [address] (test mavj=2371) [facility] [address] POCT-GLUCOSE [id number] 00:14:00 Test Item Value Reference Range Comments POC-GLUCOSE METER (BEAKER) 137 mg/dL 70-110 TESTED AT [address] (test ikcu=6144) [place] [id number] 00:09:00 Test Item Value Reference Range Comments POTASSIUM (BEAKER) (test bmhg=397) 3.8 meq/L 3.5-5.1 PRN - repeat glucose levels every 1 hour or as specified by insulin titration orders until glucose level is less than 450 mg/dLCheck Serum Potassium level 2 hours after oral potassium replacement completed or 30 min after intravenous potassium replacement.[id number] 00:09:00 Test Item Value Reference Range Comments MAGNESIUM (BEAKER) (test mxfi=320) 2.5 mg/dL 1.6-2.6 PRN - repeat glucose levels every 1 hour or as specified by insulin titration orders until glucose level is less than 450 mg/dLCheck Serum Potassium level 2 hours after oral potassium replacement completed or 30 min after intravenous potassium replacement.[id number] 00:09:00 Test Item Value Reference Range Comments PHOSPHORUS (BEAKER) (test tzia=641) 1.9 mg/dL 2.3-4.7 PRN - repeat glucose levels every 1 hour or as specified by insulin titration orders until glucose level is less than 450 mg/dLCheck Serum Potassium level 2 hours after oral potassium replacement completed or 30 min after intravenous potassium replacement.[id number] 00:09:00 Test Item Value Reference Range Comments GLUCOSE RANDOM (BEAKER) (test swyf=551) 155 mg/dL 70-105 PRN - repeat glucose levels every 1 hour or as specified by insulin titration orders until glucose level is less than 450 mg/dLCheck Serum Potassium level 2 hours after oral potassium replacement completed or 30 min after intravenous potassium replacement.BASIC METABOLIC [id number] 00:09:00 Test Item Value Reference Range Comments SODIUM (BEAKER) (test 142 meq/L 136-145 ftnx=163) POTASSIUM (BEAKER) (test 3.8 meq/L 3.5-5.1 paim=572) CHLORIDE (BEAKER) (test 105 meq/L 98-107 nvfd=899) CO2 (BEAKER) (test 30 meq/L 22-29 tugr=641) BLOOD UREA NITROGEN 37 mg/dL 7-21 (BEAKER) (test llwi=071) CREATININE (BEAKER) (test 1.80 mg/dL 0.57-1.25 slyr=000) GLUCOSE RANDOM (BEAKER) 155 mg/dL 70-105 (test xfsv=828) CALCIUM (BEAKER) (test 8.8 mg/dL 8.4-10.2 gelf=447) EGFR (BEAKER) (test 34 mL/min/1.73 sq m ESTIMATED GFR IS NOT yqqb=5746) ACCURATE CREATININE CLEARANCE IN PREDICTING GLOMERULAR FILTRATION RATE. ESTIMATED GFR IS NOT APPLICABLE FOR DIALYSIS PATIENTS. PRN - repeat glucose levels every 1 hour or as specified by insulin titration orders until glucose level is less than 450 mg/dLCheck Serum Potassium level 2 hours after oral potassium replacement completed or 30 min after intravenous potassium replacement.[id number] 00:06:00 Test Item Value Reference Range Comments PARTIAL THROMBOPLASTIN TIME (BEAKER) (test 62.0 seconds 22.5-36.0 tvmw=516) BLOOD GAS, [id number] 20:39:00 Test Item Value Reference Range Comments PH ARTERIAL (BEAKER) (test qrwn=817) 7.45 7.35-7.45 PCO2 ARTERIAL (BEAKER) (test eowg=112) 46 mmHg 35-45 PO2 ARTERIAL (BEAKER) (test stig=759) 64 mmHg 80-90 O2 SATURATION ARTERIAL (BEAKER) (test oblm=098) 92.0 % 96.0-97.0 HCO3 ARTERIAL (BEAKER) (test zhum=889) 31 mmol/L 21-29 BASE EXCESS ARTERIAL (BEAKER) (test xxic=630) 6.7 mmol/L -2.0-3.0 PATIENT TEMPERATURE (BEAKER) (test zjgg=3339) 38.1 C FIO2 (BEAKER) (test rocs=3768) 80.0 % POTASSIUM-STAT [id number] 20:39:00 Test Item Value Reference Range Comments POTASSIUM (BEAKER) (test vbut=752) 3.4 meq/L 3.6-5.5 [id number] 20:16:00 Test Item Value Reference Range Comments FERRITIN (BEAKER) (test suwv=920) 651 ng/mL 5-275 POCT-GLUCOSE [id number] 20:10:00 Test Item Value Reference Range Comments POC-GLUCOSE METER (BEAKER) 180 mg/dL 70-[address] [facility] [address] [facility] (test dckh=8813) [facility] [address] POCT-GLUCOSE [id number] 20:10:00 Test Item Value Reference Range Comments POC-GLUCOSE METER (BEAKER) 197 mg/dL 70-[address] [facility] [address] [facility] (test nhji=2792) [facility] [address] [id number] 19:54:00 Test Item Value Reference Range Comments PARTIAL THROMBOPLASTIN TIME (BEAKER) (test 62.4 seconds 22.5-36.0 wrru=408) [id number] 19:53:00 Test Item Value Reference Range Comments MAGNESIUM (BEAKER) (test xcto=412) 2.2 mg/dL 1.6-2.6 HEPATITIS A ANTIBODY, [id number] 19:25:00 Test Item Value Reference Range Comments HEPATITIS A IGG ANTIBODY (BEAKER) (test nfst=2280) Reactive Nonreactive GLUCOSE-STAT [id number] 19:24:00 Test Item Value Reference Range Comments GLUCOSE RANDOM (BEAKER) (test ufpg=240) 174 mg/dL 70-110 HGB/HCT (H&H) - STAT [id number] 19:24:00 Test Item Value Reference Range Comments HEMOGLOBIN (BEAKER) (test rixm=939) 10.1 g/dL 12.0-15.0 HEMATOCRIT (BEAKER) (test etdl=894) 30.0 % 36.0-45.0 POTASSIUM-STAT [id number] 19:24:00 Test Item Value Reference Range Comments POTASSIUM (BEAKER) (test ayfb=019) 3.4 meq/L 3.6-5.5 HEPATITIS B CORE ANTIBODY, [id number] 19:21:00 Test Item Value Reference Range Comments HEPATITIS B CORE TOTAL ANTIBODY (BEAKER) (test Nonreactive Nonreactive ngdg=295) HEPATITIS PANEL, [id number] 19:21:00 Test Item Value Reference Range Comments HEPATITIS A IGM ANTIBODY (BEAKER) (test Nonreactive Nonreactive yfot=770) HEPATITIS B CORE IGM ANTIBODY (BEAKER) (test Nonreactive Nonreactive nlyz=863) HEPATITIS C ANTIBODY (BEAKER) (test kvrs=622) Nonreactive Nonreactive HEPATITIS B SURFACE ANTIGEN (2) (BEAKER) (test Nonreactive Nonreactive xxqg=7772) HIV-1 ANTIGEN WITH HIV-1/2 [id number] 19:21:00 Test Item Value Reference Range Comments HIV-1 ANTIGEN WITH HIV 1\T\2 ANTIBODY (2) Nonreactive Nonreactive (BEAKER) (test ddxi=2817) BASIC METABOLIC [id number] 18:05:00 Test Item Value Reference Range Comments SODIUM (BEAKER) (test 141 meq/L 136-145 iohh=428) POTASSIUM (BEAKER) (test 4.0 meq/L 3.5-5.1 huhv=352) CHLORIDE (BEAKER) (test 104 meq/L 98-107 zuyp=272) CO2 (BEAKER) (test 26 meq/L 22-29 jhjx=092) BLOOD UREA NITROGEN 41 mg/dL 7-21 (BEAKER) (test jxhq=098) CREATININE (BEAKER) (test 2.07 mg/dL 0.57-1.25 sgmy=309) GLUCOSE RANDOM (BEAKER) 242 mg/dL 70-105 (test hskr=644) CALCIUM (BEAKER) (test 8.9 mg/dL 8.4-10.2 agfj=127) EGFR (BEAKER) (test 29 mL/min/1.73 sq m ESTIMATED GFR IS NOT ouqd=6399) ACCURATE CREATININE CLEARANCE IN PREDICTING GLOMERULAR FILTRATION RATE. ESTIMATED GFR IS NOT APPLICABLE FOR DIALYSIS PATIENTS. Check Serum Potassium level 2 hours after oral potassium replacement completed or 30 min after intravenous potassium replacement.[id number] 18:02:00 Test Item Value Reference Range Comments POTASSIUM (BEAKER) (test joeo=191) 4.0 meq/L 3.5-5.1 Check Serum Potassium level 2 hours after oral potassium replacement completed or 30 min after intravenous potassium replacement.[id number] 18:02:00 Test Item Value Reference Range Comments MAGNESIUM (BEAKER) (test agdk=076) 2.2 mg/dL 1.6-2.6 Check Serum Potassium level 2 hours after oral potassium replacement completed or 30 min after intravenous potassium replacement.[id number] 18:02:00 Test Item Value Reference Range Comments PHOSPHORUS (BEAKER) (test tldl=197) 2.1 mg/dL 2.3-4.7 Check Serum Potassium level 2 hours after oral potassium replacement completed or 30 min after intravenous potassium replacement.POCT-GLUCOSE [id number] 17:31:00 Test Item Value Reference Range Comments POC-GLUCOSE METER (BEAKER) 253 mg/dL 70-110 TESTED AT [address] (test wupv=6169) [place] [id number] VITAMIN D, [id number] 17:31:00 Test Item Value Reference Range Comments VITAMIN D 25-OH (BEAKER) (test aopk=9202) 5.8 ng/mL 6.6-49.9 Effective 01/12/2017: Reference Range ChangeNew: 6.6-49.9 ng/mL Previous: 13.0 -47.8 ng/mLRecommended Vitamin D Target Range: 30.0-40.0 ng/mLPOCT-GLUCOSE [id number] 17:31:00 Test Item Value Reference Range Comments POC-GLUCOSE METER (BEAKER) 269 mg/dL 70-110 TESTED AT [address] (test xfjk=4120) [place] [id number] 17:09:00 Test Item Value Reference Range Comments TRANSFERRIN (BEAKER) (test bafh=540) 166 mg/dL 174-382 [id number] 17:09:00 Test Item Value Reference Range Comments PREALBUMIN (BEAKER) (test dbce=690) 14 mg/dL 14-45 IRON, [id number] 17:09:00 Test Item Value Reference Range Comments IRON (BEAKER) (test ryou=519) 57 ug/dL 40-160 TROPONIN [id number] 16:59:00 Test Item Value Reference Range Comments TROPONIN I (BEAKER) (test yovh=699) 45.70 ng/mL 0.00-0.03 Troponin I (TnI) levels [...] failure, acidosis, acute neurological disease, and persistent tachyarrhythmia.[id number] 16:49:00 Test Item Value Reference Range Comments CREATININE (BEAKER) (test 2.17 mg/dL 0.57-1.25 hdok=159) EGFR (BEAKER) (test 27 mL/min/1.73 sq m ESTIMATED GFR IS NOT medr=5469) ACCURATE CREATININE CLEARANCE IN PREDICTING GLOMERULAR FILTRATION RATE. ESTIMATED GFR IS NOT APPLICABLE FOR DIALYSIS PATIENTS. URIC [id number] 16:48:00 Test Item Value Reference Range Comments URIC ACID (BEAKER) (test umxs=796) 8.2 mg/dL 2.6-7.2 LIPID [id number] 16:48:00 Test Item Value Reference Range Comments TRIGLYCERIDES (BEAKER) (test cnpa=751) 122 mg/dL CHOLESTEROL (BEAKER) (test hwrk=270) 204 mg/dL HDL CHOLESTEROL (BEAKER) (test mxfz=256) 85 mg/dL LDL CHOLESTEROL CALCULATED (BEAKER) (test 95 mg/dL jgcy=843) Triglyceride Reference Range: Low Risk <150 Borderline 150- 199 High Risk 200-499 Very High Risk >=500Cholesterol Reference Range: Low Risk <200 Borderline 200-239 High Risk > 240HDL Cholesterol Reference Range: Low Risk >=60 High Risk <40LDL Cholesterol Reference Range: Optimal <100 Near Optimal 100-129 Borderline 130-159 High 160-189 Very High >=[id number] 16:48:00 Test Item Value Reference Range Comments AMYLASE (BEAKER) (test vwnf=673) 228 U/L 25-125 GAMMA GLUTAMYL TRANSFERASE (GGT)[id number] 16:48:00 Test Item Value Reference Range Comments GAMMA GLUTAMYL TRANSFERASE (BEAKER) (test gkqj=218) 52 U/L 9-64 RETICULOCYTE [id number] 16:39:00 Test Item Value Reference Range Comments RETICULOCYTE COUNT PCT (BEAKER) (test cvky=934) 3.8 % 0.5-1.7 TROPONIN [id number] 13:49:00 Test Item Value Reference Range Comments TROPONIN I (BEAKER) (test xdqz=578) 43.19 ng/mL 0.00-0.03 Troponin I (TnI) levels [...] acute neurological disease, and persistent tachyarrhythmia.BASIC METABOLIC [id number] 12:22:00 Test Item Value Reference Range Comments SODIUM (BEAKER) (test 141 meq/L 136-145 cpzf=065) POTASSIUM (BEAKER) (test 3.9 meq/L 3.5-5.1 txmg=193) CHLORIDE (BEAKER) (test 102 meq/L 98-107 ptrh=216) CO2 (BEAKER) (test 28 meq/L 22-29 nhuv=566) BLOOD UREA NITROGEN 40 mg/dL 7-21 (BEAKER) (test dwxb=995) CREATININE (BEAKER) (test 2.20 mg/dL 0.57-1.25 excy=988) GLUCOSE RANDOM (BEAKER) 238 mg/dL 70-105 (test mtho=968) CALCIUM (BEAKER) (test 8.9 mg/dL 8.4-10.2 ewkb=897) EGFR (BEAKER) (test 27 mL/min/1.73 sq m ESTIMATED GFR IS NOT cbes=0210) ACCURATE CREATININE CLEARANCE IN PREDICTING GLOMERULAR FILTRATION RATE. ESTIMATED GFR IS NOT APPLICABLE FOR DIALYSIS PATIENTS. [id number] 12:17:00 Test Item Value Reference Range Comments POTASSIUM (BEAKER) (test gmah=216) 3.9 meq/L 3.5-5.1 [id number] 12:17:00 Test Item Value Reference Range Comments MAGNESIUM (BEAKER) (test kcwf=571) 2.4 mg/dL 1.6-2.6 [id number] 12:17:00 Test Item Value Reference Range Comments PHOSPHORUS (BEAKER) (test zzqu=788) 3.7 mg/dL 2.3-4.7 [id number] 12:17:00 Test Item Value Reference Range Comments GLUCOSE RANDOM (BEAKER) (test abbg=492) 238 mg/dL 70-105 [id number] 12:04:00 Test Item Value Reference Range Comments PARTIAL THROMBOPLASTIN TIME (BEAKER) (test 59.3 seconds 22.5-36.0 vsrq=785) SPUTUM CULTURE + GRAM [id number] 11:47:00 Test Item Value Reference Range Comments CULTURE (BEAKER) (test <1+ Normal respiratory pascual uypx=4437) present GRAM STAIN RESULT (BEAKER) 1+ WBCs (test ibge=1903) GRAM STAIN RESULT (BEAKER) 0-5 epithelial cells (test ycaj=47258) GRAM STAIN RESULT (BEAKER) No organisms seen (test yfju=96329) HEMOGLOBIN AND [id number] 11:26:00 Test Item Value Reference Range Comments HEMOGLOBIN (BEAKER) (test yytn=652) 7.9 GM/DL 11.2-15.7 HEMATOCRIT (BEAKER) (test xfno=576) 26.5 % 34.1-44.9 BLOOD GAS, [id number] 10:43:00 Test Item Value Reference Range Comments PH ARTERIAL (BEAKER) (test azso=129) 7.42 7.35-7.45 PCO2 ARTERIAL (BEAKER) (test yptt=359) 44 mmHg 35-45 PO2 ARTERIAL (BEAKER) (test lrzw=053) 51 mmHg 80-90 O2 SATURATION ARTERIAL (BEAKER) (test sytx=974) 88.2 % 96.0-97.0 HCO3 ARTERIAL (BEAKER) (test lsgu=983) 28 mmol/L 21-29 BASE EXCESS ARTERIAL (BEAKER) (test tlpc=365) 3.2 mmol/L -2.0-3.0 PATIENT TEMPERATURE (BEAKER) (test vllj=1757) 36.0 C FIO2 (BEAKER) (test dbqu=7592) 80.0 % URINE [id number] 09:44:00 Test Item Value Reference Range Comments CULTURE (BEAKER) (test oglf=1650) No growth BASIC METABOLIC [id number] 06:28:00 Test Item Value Reference Range Comments SODIUM (BEAKER) (test 141 meq/L 136-145 qvun=977) POTASSIUM (BEAKER) (test 4.1 meq/L 3.5-5.1 ixov=498) CHLORIDE (BEAKER) (test 101 meq/L 98-107 zdfl=028) CO2 (BEAKER) (test 29 meq/L 22-29 pldv=888) BLOOD UREA NITROGEN 40 mg/dL 7-21 (BEAKER) (test izam=681) CREATININE (BEAKER) (test 2.46 mg/dL 0.57-1.25 ewjg=425) GLUCOSE RANDOM (BEAKER) 236 mg/dL 70-105 (test vclu=879) CALCIUM (BEAKER) (test 8.6 mg/dL 8.4-10.2 tgyz=458) EGFR (BEAKER) (test 24 mL/min/1.73 sq m ESTIMATED GFR IS NOT hnwt=7420) ACCURATE CREATININE CLEARANCE IN PREDICTING GLOMERULAR FILTRATION RATE. ESTIMATED GFR IS NOT APPLICABLE FOR DIALYSIS PATIENTS. [id number] 06:26:00 Test Item Value Reference Range Comments PHOSPHORUS (BEAKER) (test uxij=397) 4.6 mg/dL 2.3-4.7 POCT-GLUCOSE [id number] 06:05:00 Test Item Value Reference Range Comments POC-GLUCOSE METER (BEAKER) 278 mg/dL 70-110 TESTED AT [address] (test fabf=7897) [facility] [address] POCT-GLUCOSE [id number] 06:05:00 Test Item Value Reference Range Comments POC-GLUCOSE METER (BEAKER) 231 mg/dL 70-110 TESTED AT [address] (test girl=0020) [place] [id number] POCT-GLUCOSE [id number] 06:05:00 Test Item Value Reference Range Comments POC-GLUCOSE METER (BEAKER) 190 mg/dL 70-110 TESTED AT [address] (test xhlu=0294) [place] [id number] 05:56:00 Test Item Value Reference Range Comments PARTIAL THROMBOPLASTIN TIME (BEAKER) (test 72.5 seconds 22.5-36.0 osdt=853) RAD, CHEST, 1 VIEW, NON [id number] 04:38:00Reason for exam:->respiratory insufficiencyFINAL REPORT CLINICAL INDICATION: Respiratory insufficiency Comparison: 07/20/2017 The cardiomediastinal contours are stable. Central pulmonary vascular prominence and bilateral parenchymal opacities are similar within variation of acquisition technique. There is no pneumothorax. A femoral Impella device is stable in position. Signed: Adelso Sorensen MDReport Verified Date/Time:07/21/2017 04:38:32 Reading Location: [address] Reading Room BASIC METABOLIC [id number] 04:06:00 Test Item Value Reference Range Comments SODIUM (BEAKER) (test 142 meq/L 136-145 fivs=870) POTASSIUM (BEAKER) (test 3.9 meq/L 3.5-5.1 zjux=006) CHLORIDE (BEAKER) (test 102 meq/L 98-107 oqof=372) CO2 (BEAKER) (test 31 meq/L 22-29 lhso=275) BLOOD UREA NITROGEN 40 mg/dL 7-21 (BEAKER) (test jvic=408) CREATININE (BEAKER) (test 2.37 mg/dL 0.57-1.25 uixg=083) GLUCOSE RANDOM (BEAKER) 206 mg/dL 70-105 (test tkxf=295) CALCIUM (BEAKER) (test 8.5 mg/dL 8.4-10.2 vrmv=842) EGFR (BEAKER) (test 25 mL/min/1.73 sq m ESTIMATED GFR IS NOT mdhe=0532) ACCURATE CREATININE CLEARANCE IN PREDICTING GLOMERULAR FILTRATION RATE. ESTIMATED GFR IS NOT APPLICABLE FOR DIALYSIS PATIENTS. BLOOD GAS, [id number] 03:53:00 Test Item Value Reference Range Comments PH ARTERIAL (BEAKER) (test jrvt=047) 7.36 7.35-7.45 PCO2 ARTERIAL (BEAKER) (test wmnu=069) 55 mmHg 35-45 PO2 ARTERIAL (BEAKER) (test kvjt=220) 94 mmHg 80-90 O2 SATURATION ARTERIAL (BEAKER) (test mbre=108) 96.0 % 96.0-97.0 HCO3 ARTERIAL (BEAKER) (test jxns=814) 30 mmol/L 21-29 BASE EXCESS ARTERIAL (BEAKER) (test wnwd=723) 4.2 mmol/L -2.0-3.0 PATIENT TEMPERATURE (BEAKER) (test xkuv=6864) 38.8 C FIO2 (BEAKER) (test jmoc=3450) 80.0 % CALCIUM, [id number] 03:51:00 Test Item Value Reference Range Comments CALCIUM IONIZED (BEAKER) (test lptz=320) 1.07 mmol/L 1.12-1.27 PH, BLOOD (BEAKER) (test jkyy=2507) 7.35 OXYGEN SATURATION, [id number] 03:50:00 Test Item Value Reference Range Comments O2 SATURATION (MEASURED) (BEAKER) (test nikm=7469) 72.6 % [id number] 03:47:00 Test Item Value Reference Range Comments PHOSPHORUS (BEAKER) (test dzqx=099) 4.5 mg/dL 2.3-4.7 [id number] 03:47:00 Test Item Value Reference Range Comments MAGNESIUM (BEAKER) (test hgrd=760) 2.1 mg/dL 1.6-2.6 HEPATIC FUNCTION [id number] 03:47:00 Test Item Value Reference Range Comments TOTAL PROTEIN (BEAKER) (test qkak=036) 6.1 gm/dL 6.0-8.3 ALBUMIN (BEAKER) (test pqdq=4992) 3.1 g/dL 3.5-5.0 BILIRUBIN TOTAL (BEAKER) (test qqci=336) 1.4 mg/dL 0.2-1.2 BILIRUBIN DIRECT (BEAKER) (test rodl=334) 0.6 mg/dL 0.1-0.5 ALKALINE PHOSPHATASE (BEAKER) (test ytoi=902) 45 U/L 40-150 AST (SGOT) (BEAKER) (test wxmq=502) 94 U/L 5-34 ALT (SGPT) (BEAKER) (test tihc=758) 48 U/L 6-55 LACTATE DEHYDROGENASE (LDH)2017-07-21 03:47:00 Test Item Value Reference Range Comments LACTATE DEHYDROGENASE (BEAKER) (test tnbe=702) 1470 U/L 125-220 CBC W/PLT COUNT & AUTO [id number] 03:41:00 Test Item Value Reference Range Comments WHITE BLOOD CELL COUNT (BEAKER) (test pncd=005) 14.1 K/ L 3.5-10.5 RED BLOOD CELL COUNT (BEAKER) (test jdsn=921) 2.81 M/ L 3.93-5.22 HEMOGLOBIN (BEAKER) (test jwyh=700) 8.6 GM/DL 11.2-15.7 HEMATOCRIT (BEAKER) (test dtya=140) 28.2 % 34.1-44.9 MEAN CORPUSCULAR VOLUME (BEAKER) (test cijt=805) 100.4 fL 79.4-94.8 MEAN CORPUSCULAR HEMOGLOBIN (BEAKER) (test 30.6 pg 25.6-32.2 fxbk=258) MEAN CORPUSCULAR HEMOGLOBIN CONC (BEAKER) (test 30.5 GM/DL 32.2-35.5 zgkj=837) RED CELL DISTRIBUTION WIDTH (BEAKER) (test 13.1 % 11.7-14.4 gtbx=904) PLATELET COUNT (BEAKER) (test scrv=422) 140 K/CU MM 150-450 MEAN PLATELET VOLUME (BEAKER) (test pevb=750) 11.1 fL 9.4-12.3 NUCLEATED RED BLOOD CELLS (BEAKER) (test 0 /100 WBC 0-0 mrrm=127) NEUTROPHILS RELATIVE PERCENT (BEAKER) (test 86 % laut=237) LYMPHOCYTES RELATIVE PERCENT (BEAKER) (test 6 % jfqd=131) MONOCYTES RELATIVE PERCENT (BEAKER) (test 8 % ggau=954) EOSINOPHILS RELATIVE PERCENT (BEAKER) (test 0 % iihs=296) BASOPHILS RELATIVE PERCENT (BEAKER) (test 0 % zwwn=621) NEUTROPHILS ABSOLUTE COUNT (BEAKER) (test 12.13 K/ L 1.56-6.13 vipr=826) LYMPHOCYTES ABSOLUTE COUNT (BEAKER) (test 0.81 K/ L 1.18-3.74 navx=879) MONOCYTES ABSOLUTE COUNT (BEAKER) (test 1.07 K/ L 0.24-0.36 gmbb=076) EOSINOPHILS ABSOLUTE COUNT (BEAKER) (test 0.00 K/ L 0.04-0.36 fcsn=416) BASOPHILS ABSOLUTE COUNT (BEAKER) (test 0.02 K/ L 0.01-0.08 gmxn=941) IMMATURE GRANULOCYTES-RELATIVE PERCENT (BEAKER) 1 % 0-1 (test wnuy=7036) LACTIC ACID, ARTERIAL, WHOLE [id number] 03:39:00 Test Item Value Reference Range Comments LACTATE BLOOD ARTERIAL (2) (BEAKER) (test 0.9 mmol/L 0.5-2.2 manz=2072) Effective 08/06/2015: Units/Reference Range ChangeNew: 0.5-2.2 mmol/L Previous: 5 -20 mg/dLTROPONIN [id number] 00:12:00 Test Item Value Reference Range Comments TROPONIN I (BEAKER) (test kaze=796) 60.74 ng/mL 0.00-0.03 Troponin I (TnI) levels [...] failure, acidosis, acute neurological disease, and persistent tachyarrhythmia.[id number] 23:42:00 Test Item Value Reference Range Comments PHOSPHORUS (BEAKER) (test cmpt=795) 4.9 mg/dL 2.3-4.7 BASIC METABOLIC [id number] 23:42:00 Test Item Value Reference Range Comments SODIUM (BEAKER) (test 141 meq/L 136-145 spgs=055) POTASSIUM (BEAKER) (test 4.2 meq/L 3.5-5.1 fnhi=294) CHLORIDE (BEAKER) (test 102 meq/L 98-107 jimq=749) CO2 (BEAKER) (test 29 meq/L 22-29 irvs=532) BLOOD UREA NITROGEN 40 mg/dL 7-21 (BEAKER) (test cnip=579) CREATININE (BEAKER) (test 2.36 mg/dL 0.57-1.25 lrxh=453) GLUCOSE RANDOM (BEAKER) 200 mg/dL 70-105 (test snhy=193) CALCIUM (BEAKER) (test 8.4 mg/dL 8.4-10.2 tprn=632) EGFR (BEAKER) (test 25 mL/min/1.73 sq m ESTIMATED GFR IS NOT bcqz=0302) ACCURATE CREATININE CLEARANCE IN PREDICTING GLOMERULAR FILTRATION RATE. ESTIMATED GFR IS NOT APPLICABLE FOR DIALYSIS PATIENTS. [id number] 23:39:00 Test Item Value Reference Range Comments PARTIAL THROMBOPLASTIN TIME (BEAKER) (test 78.1 seconds 22.5-36.0 bamn=763) POCT-GLUCOSE [id number] 23:28:00 Test Item Value Reference Range Comments POC-GLUCOSE METER (BEAKER) 250 mg/dL 70-[address] [facility] [address] [facility] (test udhu=5235) [facility] [address] POCT-GLUCOSE [id number] 22:19:00 Test Item Value Reference Range Comments POC-GLUCOSE METER (BEAKER) 202 mg/dL 70-110 TESTED AT [address] (test bjce=2277) [facility] [address] HEPATIC FUNCTION [id number] 21:45:00 Test Item Value Reference Range Comments TOTAL PROTEIN (BEAKER) (test dxlp=711) 5.9 gm/dL 6.0-8.3 ALBUMIN (BEAKER) (test jjer=9554) 3.1 g/dL 3.5-5.0 BILIRUBIN TOTAL (BEAKER) (test nlho=746) 1.0 mg/dL 0.2-1.2 BILIRUBIN DIRECT (BEAKER) (test mrnl=708) 0.5 mg/dL 0.1-0.5 ALKALINE PHOSPHATASE (BEAKER) (test glok=631) 46 U/L 40-150 AST (SGOT) (BEAKER) (test ifjj=777) 95 U/L 5-34 ALT (SGPT) (BEAKER) (test iwac=558) 47 U/L 6-55 BASIC METABOLIC [id number] 21:45:00 Test Item Value Reference Range Comments SODIUM (BEAKER) (test 141 meq/L 136-145 mayn=104) POTASSIUM (BEAKER) (test 4.0 meq/L 3.5-5.1 pcxz=376) CHLORIDE (BEAKER) (test 103 meq/L 98-107 yong=000) CO2 (BEAKER) (test 27 meq/L 22-29 xpqc=845) BLOOD UREA NITROGEN 40 mg/dL 7-21 (BEAKER) (test stwg=587) CREATININE (BEAKER) (test 2.30 mg/dL 0.57-1.25 hvfh=547) GLUCOSE RANDOM (BEAKER) 192 mg/dL 70-105 (test jkaq=035) CALCIUM (BEAKER) (test 8.4 mg/dL 8.4-10.2 rjra=363) EGFR (BEAKER) (test 25 mL/min/1.73 sq m ESTIMATED GFR IS NOT rehu=0925) ACCURATE CREATININE CLEARANCE IN PREDICTING GLOMERULAR FILTRATION RATE. ESTIMATED GFR IS NOT APPLICABLE FOR DIALYSIS PATIENTS. [id number] 21:38:00 Test Item Value Reference Range Comments MAGNESIUM (BEAKER) (test wfjo=477) 2.1 mg/dL 1.6-2.6 LACTIC ACID, ARTERIAL, WHOLE [id number] 21:32:00 Test Item Value Reference Range Comments LACTATE BLOOD ARTERIAL (2) (BEAKER) (test 0.6 mmol/L 0.5-2.2 efpo=6339) Effective 08/06/2015: Units/Reference Range ChangeNew: 0.5-2.2 mmol/L Previous: 5 -20 mg/dLPOCT-GLUCOSE [id number] 21:21:00 Test Item Value Reference Range Comments POC-GLUCOSE METER (BEAKER) 198 mg/dL 70-110 TESTED AT [address] (test rula=0684) [facility] [address] POCT-GLUCOSE [id number] 21:21:00 Test Item Value Reference Range Comments POC-GLUCOSE METER (BEAKER) 155 mg/dL 70-110 TESTED AT [address] (test rfiv=0465) [facility] [address] POCT-GLUCOSE [id number] 21:21:00 Test Item Value Reference Range Comments POC-GLUCOSE METER (BEAKER) 67 mg/dL 70-110 TESTED AT [address] (test aucg=2312) [facility] [address] BLOOD GAS, [id number] 21:16:00 Test Item Value Reference Range Comments PH ARTERIAL (BEAKER) (test wkxc=692) 7.34 7.35-7.45 PCO2 ARTERIAL (BEAKER) (test ckkf=328) 56 mmHg 35-45 PO2 ARTERIAL (BEAKER) (test ihji=802) 107 mmHg 80-90 O2 SATURATION ARTERIAL (BEAKER) (test ylst=752) 97.3 % 96.0-97.0 HCO3 ARTERIAL (BEAKER) (test gjvu=955) 29 mmol/L 21-29 BASE EXCESS ARTERIAL (BEAKER) (test zyoj=251) 2.7 mmol/L -2.0-3.0 PATIENT TEMPERATURE (BEAKER) (test ydvw=2121) 37.8 C FIO2 (BEAKER) (test ypgz=7469) 100.0 % GLUCOSE-STAT [id number] 21:16:00 Test Item Value Reference Range Comments GLUCOSE RANDOM (BEAKER) (test obww=587) 188 mg/dL 70-110 HGB/HCT (H&H) - STAT [id number] 21:16:00 Test Item Value Reference Range Comments HEMOGLOBIN (BEAKER) (test zevn=761) 9.9 g/dL 12.0-15.0 HEMATOCRIT (BEAKER) (test dfso=316) 29.0 % 36.0-45.0 SODIUM NA-STAT [id number] 21:15:00 Test Item Value Reference Range Comments SODIUM (BEAKER) (test rxzo=194) 140 meq/L 135-148 POTASSIUM-STAT [id number] 21:15:00 Test Item Value Reference Range Comments POTASSIUM (BEAKER) (test pwhq=626) 3.9 meq/L 3.6-5.5 BLOOD GAS, [id number] 19:44:00 Test Item Value Reference Range Comments PH ARTERIAL (BEAKER) (test aoho=252) 7.34 7.35-7.45 PCO2 ARTERIAL (BEAKER) (test uecx=226) 31 mmHg 35-45 PO2 ARTERIAL (BEAKER) (test elft=407) 68 mmHg 80-90 O2 SATURATION ARTERIAL (BEAKER) (test wqtu=849) 92.1 % 96.0-97.0 HCO3 ARTERIAL (BEAKER) (test eqjp=966) 16 mmol/L 21-29 BASE EXCESS ARTERIAL (BEAKER) (test mvrd=336) -8.7 mmol/L -2.0-3.0 PATIENT TEMPERATURE (BEAKER) (test qbpn=7523) 37.7 C FIO2 (BEAKER) (test kdzz=4590) 50.0 % POCT-GLUCOSE [id number] 18:30:00 Test Item Value Reference Range Comments POC-GLUCOSE METER (BEAKER) 90 mg/dL 70-[address] [facility] [address] [facility] (test qqqu=5886) [facility] [address] TROPONIN [id number] 18:05:00 Test Item Value Reference Range Comments TROPONIN I (BEAKER) (test hyvr=908) 76.69 ng/mL 0.00-0.03 Troponin I (TnI) levels [...] acute neurological disease, and persistent tachyarrhythmia.BASIC METABOLIC [id number] 17:56:00 Test Item Value Reference Range Comments SODIUM (BEAKER) (test 143 meq/L 136-145 eelq=171) POTASSIUM (BEAKER) (test 3.8 meq/L 3.5-5.1 askc=082) CHLORIDE (BEAKER) (test 104 meq/L 98-107 jtig=057) CO2 (BEAKER) (test 29 meq/L 22-29 yxnp=191) BLOOD UREA NITROGEN 37 mg/dL 7-21 (BEAKER) (test mvok=094) CREATININE (BEAKER) (test 2.45 mg/dL 0.57-1.25 jpcx=046) GLUCOSE RANDOM (BEAKER) 107 mg/dL 70-105 (test hdme=621) CALCIUM (BEAKER) (test 8.6 mg/dL 8.4-10.2 dljr=523) EGFR (BEAKER) (test 24 mL/min/1.73 sq m ESTIMATED GFR IS NOT vwyu=5053) ACCURATE CREATININE CLEARANCE IN PREDICTING GLOMERULAR FILTRATION RATE. ESTIMATED GFR IS NOT APPLICABLE FOR DIALYSIS PATIENTS. [id number] 17:43:00 Test Item Value Reference Range Comments PHOSPHORUS (BEAKER) (test inip=511) 4.8 mg/dL 2.3-4.7 [id number] 17:43:00 Test Item Value Reference Range Comments MAGNESIUM (BEAKER) (test nuoh=979) 2.4 mg/dL 1.6-2.6 [id number] 17:34:00 Test Item Value Reference Range Comments PARTIAL THROMBOPLASTIN TIME (BEAKER) (test 101.4 seconds 22.5-36.0 lqxd=572) BLOOD GAS, [id number] 17:23:00 Test Item Value Reference Range Comments PH ARTERIAL (BEAKER) (test ofee=410) 7.36 7.35-7.45 PCO2 ARTERIAL (BEAKER) (test xwxd=038) 60 mmHg 35-45 PO2 ARTERIAL (BEAKER) (test daho=657) 82 mmHg 80-90 O2 SATURATION ARTERIAL (BEAKER) (test ojue=102) 95.1 % 96.0-97.0 HCO3 ARTERIAL (BEAKER) (test mqkr=006) 33 mmol/L 21-29 BASE EXCESS ARTERIAL (BEAKER) (test wjia=344) 6.0 mmol/L -2.0-3.0 PATIENT TEMPERATURE (BEAKER) (test kckk=5032) 37.4 C FIO2 (BEAKER) (test hymv=5988) 70.0 % GLUCOSE-STAT [id number] 17:20:00 Test Item Value Reference Range Comments GLUCOSE RANDOM (BEAKER) (test hqzo=665) 106 mg/dL 70-110 POCT-GLUCOSE [id number] 16:32:00 Test Item Value Reference Range Comments POC-GLUCOSE METER (AKER) 115 mg/dL 70-110 TESTED AT [address] (test ylhl=3859) [facility] [address] VANCOMYCIN LEVEL, [id number] 16:10:00 Test Item Value Reference Range Comments VANCOMYCIN TROUGH (AKER) (test ulur=330) 17.0 ug/mL 10.0-20.0 POCT-GLUCOSE [id number] 15:32:00 Test Item Value Reference Range Comments POC-GLUCOSE METER (BEAKER) 119 mg/dL 70-110 TESTED AT [address] (test agrz=3812) [facility] [address] TROPONIN [id number] 13:14:00 Test Item Value Reference Range Comments TROPONIN I (BEAKER) (test yghb=189) 81.57 ng/mL 0.00-0.03 Troponin I (TnI) levels [...] acute neurological disease, and persistent tachyarrhythmia.BASIC METABOLIC [id number] 12:49:00 Test Item Value Reference Range Comments SODIUM (BEAKER) (test 140 meq/L 136-145 puyh=769) POTASSIUM (BEAKER) (test 3.6 meq/L 3.5-5.1 Specimen slightly fruh=192) hemolyzed CHLORIDE (BEAKER) (test 104 meq/L 98-107 upda=505) CO2 (BEAKER) (test 27 meq/L 22-29 kpuc=722) BLOOD UREA NITROGEN 37 mg/dL 7-21 (BEAKER) (test fsrj=461) CREATININE (BEAKER) (test 2.35 mg/dL 0.57-1.25 Specimen slightly czfl=925) hemolyzed GLUCOSE RANDOM (BEAKER) 192 mg/dL 70-105 (test peyr=711) CALCIUM (BEAKER) (test 8.1 mg/dL 8.4-10.2 kdtp=864) EGFR (BEAKER) (test 25 mL/min/1.73 sq m ESTIMATED GFR IS NOT ivac=2397) ACCURATE CREATININE CLEARANCE IN PREDICTING GLOMERULAR FILTRATION RATE. ESTIMATED GFR IS NOT APPLICABLE FOR DIALYSIS PATIENTS. [id number] 12:46:00 Test Item Value Reference Range Comments MAGNESIUM (BEAKER) (test 2.2 mg/dL 1.6-2.6 Specimen slightly hemolyzed yfxt=491) [id number] 12:46:00 Test Item Value Reference Range Comments PHOSPHORUS (BEAKER) (test 4.6 mg/dL 2.3-4.7 Specimen slightly hemolyzed qrsb=250) POCT-GLUCOSE [id number] 12:16:00 Test Item Value Reference Range Comments POC-GLUCOSE METER (BEAKER) 210 mg/dL 70-110 TESTED AT [address] (test gftc=1485) [place] [id number] POCT-GLUCOSE [id number] 12:16:00 Test Item Value Reference Range Comments POC-GLUCOSE METER (BEAKER) 247 mg/dL 70-110 TESTED AT [address] (test ehjc=8793) [place] [id number] POCT-GLUCOSE [id number] 12:16:00 Test Item Value Reference Range Comments POC-GLUCOSE METER (BEAKER) 174 mg/dL 70-110 TESTED AT [address] (test ycvq=8209) [place] [id number] BLOOD GAS, [id number] 12:14:00 Test Item Value Reference Range Comments PH ARTERIAL (BEAKER) (test suts=276) 7.36 7.35-7.45 PCO2 ARTERIAL (BEAKER) (test uhfn=461) 56 mmHg 35-45 PO2 ARTERIAL (BEAKER) (test yurs=994) 65 mmHg 80-90 O2 SATURATION ARTERIAL (BEAKER) (test bdkl=681) 90.4 % 96.0-97.0 HCO3 ARTERIAL (BEAKER) (test qmhi=783) 31 mmol/L 21-29 BASE EXCESS ARTERIAL (BEAKER) (test pubg=965) 4.8 mmol/L -2.0-3.0 PATIENT TEMPERATURE (BEAKER) (test cetr=7770) 38.0 C FIO2 (BEAKER) (test udwl=8803) 60.0 % [id number] 10:58:00 Test Item Value Reference Range Comments PARTIAL THROMBOPLASTIN TIME (BEAKER) (test 99.0 seconds 22.5-36.0 saqe=129) RAD, CHEST, 1 VIEW, NON [id number] 08:30:00Reason for exam:->r/o pleural effusionShould this be [...] No pneumothorax is seen. Signed: [facility] Verified Date/Time: 07/20/2017 08:30:52 Reading Location: [facility] Radiology ReadingRoom BLOOD GAS, [id number] 06 :37:00 Test Item Value Reference Range Comments PH ARTERIAL (BEAKER) (test mprq=386) 7.38 7.35-7.45 PCO2 ARTERIAL (BEAKER) (test ldbg=177) 50 mmHg 35-45 PO2 ARTERIAL (BEAKER) (test wwrt=709) 97 mmHg 80-90 O2 SATURATION ARTERIAL (BEAKER) (test tese=242) 96.9 % 96.0-97.0 HCO3 ARTERIAL (BEAKER) (test jqos=063) 28 mmol/L 21-29 BASE EXCESS ARTERIAL (BEAKER) (test dpsh=989) 2.7 mmol/L -2.0-3.0 PATIENT TEMPERATURE (BEAKER) (test muzs=6594) 37.8 C FIO2 (BEAKER) (test akat=1935) 40.0 % POCT-GLUCOSE [id number] 06:15:00 Test Item Value Reference Range Comments POC-GLUCOSE METER (BEAKER) 114 mg/dL 70-110 TESTED AT [address] (test ixrc=8851) [facility] [address] POCT-GLUCOSE [id number] 06:15:00 Test Item Value Reference Range Comments POC-GLUCOSE METER (BEAKER) 140 mg/dL 70-110 TESTED AT [address] (test bocv=0153) [facility] [address] POCT-GLUCOSE [id number] 05:23:00 Test Item Value Reference Range Comments POC-GLUCOSE METER (BEAKER) 77 mg/dL 70-110 TESTED AT [address] (test bgng=2160) [facility] [address] CALCIUM, [id number] 04:34:00 Test Item Value Reference Range Comments CALCIUM IONIZED (BEAKER) (test kuan=430) 1.14 mmol/L 1.12-1.27 PH, BLOOD (BEAKER) (test mvga=3416) 7.34 BLOOD GAS, [id number] 04:32:00 Test Item Value Reference Range Comments PH ARTERIAL (BEAKER) (test tbqr=838) 7.32 7.35-7.45 PCO2 ARTERIAL (BEAKER) (test bozn=248) 60 mmHg 35-45 PO2 ARTERIAL (BEAKER) (test zron=817) 92 mmHg 80-90 O2 SATURATION ARTERIAL (BEAKER) (test tkhj=350) 95.9 % 96.0-97.0 HCO3 ARTERIAL (BEAKER) (test qisn=458) 30 mmol/L 21-29 BASE EXCESS ARTERIAL (BEAKER) (test uuak=374) 3.2 mmol/L -2.0-3.0 PATIENT TEMPERATURE (BEAKER) (test lzvp=3606) 37.8 C FIO2 (BEAKER) (test rymx=9124) 40.0 % COMPREHENSIVE METABOLIC [id number] 04:24:00 Test Item Value Reference Range Comments TOTAL PROTEIN (BEAKER) 6.5 gm/dL 6.0-8.3 (test kbdh=236) ALBUMIN (BEAKER) (test 3.4 g/dL 3.5-5.0 gaae=9588) ALKALINE PHOSPHATASE 47 U/L 40-150 (BEAKER) (test fgmr=457) BILIRUBIN TOTAL (BEAKER) 0.8 mg/dL 0.2-1.2 (test hxaq=071) SODIUM (BEAKER) (test 142 meq/L 136-145 ktqz=100) POTASSIUM (BEAKER) (test 3.7 meq/L 3.5-5.1 glid=549) CHLORIDE (BEAKER) (test 103 meq/L 98-107 qqlk=488) CO2 (BEAKER) (test 29 meq/L 22-29 yuyw=507) BLOOD UREA NITROGEN 34 mg/dL 7-21 (BEAKER) (test isgv=397) CREATININE (BEAKER) (test 2.44 mg/dL 0.57-1.25 cznj=971) GLUCOSE RANDOM (BEAKER) 128 mg/dL 70-105 (test bwje=731) CALCIUM (BEAKER) (test 8.7 mg/dL 8.4-10.2 bpqr=976) AST (SGOT) (BEAKER) (test 158 U/L 5-34 htxo=950) ALT (SGPT) (BEAKER) (test 63 U/L 6-55 kygz=616) EGFR (BEAKER) (test 24 mL/min/1.73 sq m ESTIMATED GFR IS NOT jxrq=8109) ACCURATE CREATININE CLEARANCE IN PREDICTING GLOMERULAR FILTRATION RATE. ESTIMATED GFR IS NOT APPLICABLE FOR DIALYSIS PATIENTS. BASIC METABOLIC [id number] 04:24:00 Test Item Value Reference Range Comments SODIUM (BEAKER) (test 142 meq/L 136-145 knum=746) POTASSIUM (BEAKER) (test 3.7 meq/L 3.5-5.1 kxgk=693) CHLORIDE (BEAKER) (test 103 meq/L 98-107 tkdf=182) CO2 (BEAKER) (test 29 meq/L 22-29 pzit=187) BLOOD UREA NITROGEN 34 mg/dL 7-21 (BEAKER) (test dole=567) CREATININE (BEAKER) (test 2.44 mg/dL 0.57-1.25 lwqy=628) GLUCOSE RANDOM (BEAKER) 128 mg/dL 70-105 (test ymgo=943) CALCIUM (BEAKER) (test 8.7 mg/dL 8.4-10.2 wbbi=849) EGFR (BEAKER) (test 24 mL/min/1.73 sq m ESTIMATED GFR IS NOT hupg=7493) ACCURATE CREATININE CLEARANCE IN PREDICTING GLOMERULAR FILTRATION RATE. ESTIMATED GFR IS NOT APPLICABLE FOR DIALYSIS PATIENTS. [id number] 04:22:00 Test Item Value Reference Range Comments PHOSPHORUS (BEAKER) (test qeoe=277) 5.2 mg/dL 2.3-4.7 [id number] 04:22:00 Test Item Value Reference Range Comments MAGNESIUM (BEAKER) (test nytd=900) 2.4 mg/dL 1.6-2.6 HEPATIC FUNCTION [id number] 04:22:00 Test Item Value Reference Range Comments TOTAL PROTEIN (BEAKER) (test uwpn=605) 6.5 gm/dL 6.0-8.3 ALBUMIN (BEAKER) (test kjtm=7875) 3.4 g/dL 3.5-5.0 BILIRUBIN TOTAL (BEAKER) (test khgg=182) 0.8 mg/dL 0.2-1.2 BILIRUBIN DIRECT (BEAKER) (test psfk=981) 0.4 mg/dL 0.1-0.5 ALKALINE PHOSPHATASE (BEAKER) (test prgq=525) 47 U/L 40-150 AST (SGOT) (BEAKER) (test wywj=474) 158 U/L 5-34 ALT (SGPT) (BEAKER) (test bqsl=015) 63 U/L 6-55 [id number] 04:12:00 Test Item Value Reference Range Comments PARTIAL THROMBOPLASTIN TIME (BEAKER) (test 36.8 seconds 22.5-36.0 wgjv=961) Prior to initiating heparinPOCT-GLUCOSE [id number] 04:05:00 Test Item Value Reference Range Comments POC-GLUCOSE METER (BEAKER) 134 mg/dL 70-[address] [facility] [address] [facility] (test qsbg=8539) [facility] [address] POCT-GLUCOSE [id number] 04:05:00 Test Item Value Reference Range Comments POC-GLUCOSE METER (BEAKER) 122 mg/dL 70-[address] [facility] [address] [facility] (test hyoy=1108) [facility] [address] POCT-GLUCOSE [id number] 04:05:00 Test Item Value Reference Range Comments POC-GLUCOSE METER (BEAKER) 201 mg/dL 70-110 TESTED AT [place] [id number] [facility] (test ajnw=3401) [place] [id number] CBC W/PLT COUNT & AUTO [id number] 04:02:00 Test Item Value Reference Range Comments WHITE BLOOD CELL COUNT (BEAKER) (test opag=683) 13.6 K/ L 3.5-10.5 RED BLOOD CELL COUNT (BEAKER) (test hdbe=652) 3.18 M/ L 3.93-5.22 HEMOGLOBIN (BEAKER) (test ugwl=314) 9.7 GM/DL 11.2-15.7 HEMATOCRIT (BEAKER) (test zkyf=846) 31.0 % 34.1-44.9 MEAN CORPUSCULAR VOLUME (BEAKER) (test qlxi=341) 97.5 fL 79.4-94.8 MEAN CORPUSCULAR HEMOGLOBIN (BEAKER) (test 30.5 pg 25.6-32.2 jpvo=119) MEAN CORPUSCULAR HEMOGLOBIN CONC (BEAKER) (test 31.3 GM/DL 32.2-35.5 snto=300) RED CELL DISTRIBUTION WIDTH (BEAKER) (test 13.3 % 11.7-14.4 mhwv=683) PLATELET COUNT (BEAKER) (test lmlz=353) 167 K/CU MM 150-450 MEAN PLATELET VOLUME (BEAKER) (test wnec=140) 11.0 fL 9.4-12.3 NUCLEATED RED BLOOD CELLS (BEAKER) (test 0 /100 WBC 0-0 uixk=961) NEUTROPHILS RELATIVE PERCENT (BEAKER) (test 85 % xncg=406) LYMPHOCYTES RELATIVE PERCENT (BEAKER) (test 7 % pqdp=097) MONOCYTES RELATIVE PERCENT (BEAKER) (test 7 % hdqe=476) EOSINOPHILS RELATIVE PERCENT (BEAKER) (test 0 % gpid=090) BASOPHILS RELATIVE PERCENT (BEAKER) (test 0 % xdil=616) NEUTROPHILS ABSOLUTE COUNT (BEAKER) (test 11.61 K/ L 1.56-6.13 rzcx=438) LYMPHOCYTES ABSOLUTE COUNT (BEAKER) (test 0.98 K/ L 1.18-3.74 yibv=177) MONOCYTES ABSOLUTE COUNT (BEAKER) (test 0.92 K/ L 0.24-0.36 kpei=490) EOSINOPHILS ABSOLUTE COUNT (BEAKER) (test 0.00 K/ L 0.04-0.36 kwbt=856) BASOPHILS ABSOLUTE COUNT (BEAKER) (test 0.02 K/ L 0.01-0.08 xtvu=879) IMMATURE GRANULOCYTES-RELATIVE PERCENT (BEAKER) 1 % 0-1 (test qnyd=5579) [id number] 02:01:00 Test Item Value Reference Range Comments PARTIAL THROMBOPLASTIN TIME (BEAKER) (test 32.5 seconds 22.5-36.0 ugfi=649) BLOOD GAS, [id number] 01:09:00 Test Item Value Reference Range Comments PH ARTERIAL (BEAKER) (test uyln=364) 7.35 7.35-7.45 PCO2 ARTERIAL (BEAKER) (test zlgs=957) 50 mmHg 35-45 PO2 ARTERIAL (BEAKER) (test wfew=770) 86 mmHg 80-90 O2 SATURATION ARTERIAL (BEAKER) (test qlsf=456) 95.3 % 96.0-97.0 HCO3 ARTERIAL (BEAKER) (test iqoj=127) 27 mmol/L 21-29 BASE EXCESS ARTERIAL (BEAKER) (test jpir=334) 1.0 mmol/L -2.0-3.0 PATIENT TEMPERATURE (BEAKER) (test jwkz=2182) 38.2 C FIO2 (BEAKER) (test euxd=7338) 40.0 % POCT-GLUCOSE [id number] 01:04:00 Test Item Value Reference Range Comments POC-GLUCOSE METER (BEAKER) 199 mg/dL 70-[address] [facility] [address] [facility] (test napz=4285) [facility] [address] [id number] 00:14:00 Test Item Value Reference Range Comments MAGNESIUM (BEAKER) (test 2.3 mg/dL 1.6-2.6 Specimen slightly hemolyzed cmxd=987) [id number] 00:14:00 Test Item Value Reference Range Comments POTASSIUM (BEAKER) (test 3.8 meq/L 3.5-5.1 Specimen slightly hemolyzed qdii=201) CALCIUM, [id number] 00:11:00 Test Item Value Reference Range Comments CALCIUM IONIZED (BEAKER) (test aqyw=719) 1.06 mmol/L 1.12-1.27 PH, BLOOD (BEAKER) (test tlur=4888) 7.35 BLOOD GAS, [id number] 00:11:00 Test Item Value Reference Range Comments PH ARTERIAL (BEAKER) (test sdhd=732) 7.33 7.35-7.45 PCO2 ARTERIAL (BEAKER) (test svov=249) 53 mmHg 35-45 PO2 ARTERIAL (BEAKER) (test ptil=632) 58 mmHg 80-90 O2 SATURATION ARTERIAL (BEAKER) (test uekj=832) 86.1 % 96.0-97.0 HCO3 ARTERIAL (BEAKER) (test zvwh=423) 27 mmol/L 21-29 BASE EXCESS ARTERIAL (BEAKER) (test ttkv=992) 0.9 mmol/L -2.0-3.0 PATIENT TEMPERATURE (BEAKER) (test jmhi=4229) 38.0 C FIO2 (BEAKER) (test tjqu=1474) 40.0 % Post extubation ABGPOCT-GLUCOSE [id number] 23:58:00 Test Item Value Reference Range Comments POC-GLUCOSE METER (BEAKER) 202 mg/dL 70-110 TESTED AT [address] (test mrul=4568) [place] [id number] POCT-GLUCOSE [id number] 23:58:00 Test Item Value Reference Range Comments POC-GLUCOSE METER (BEAKER) 86 mg/dL 70-110 TESTED AT [address] (test mtne=9919) [place] [id number] BASIC METABOLIC [id number] 22:18:00 Test Item Value Reference Range Comments SODIUM (BEAKER) (test 141 meq/L 136-145 gscy=226) POTASSIUM (BEAKER) (test 3.6 meq/L 3.5-5.1 Specimen slightly indf=404) hemolyzed CHLORIDE (BEAKER) (test 105 meq/L 98-107 yadc=095) CO2 (BEAKER) (test 26 meq/L 22-29 zonk=343) BLOOD UREA NITROGEN 31 mg/dL 7-21 (BEAKER) (test wnra=854) CREATININE (BEAKER) (test 2.09 mg/dL 0.57-1.25 Specimen slightly fzio=307) hemolyzed GLUCOSE RANDOM (BEAKER) 81 mg/dL 70-105 (test mmot=731) CALCIUM (BEAKER) (test 8.3 mg/dL 8.4-10.2 lhuf=302) EGFR (BEAKER) (test 28 mL/min/1.73 sq m ESTIMATED GFR IS NOT raiz=9935) ACCURATE CREATININE CLEARANCE IN PREDICTING GLOMERULAR FILTRATION RATE. ESTIMATED GFR IS NOT APPLICABLE FOR DIALYSIS PATIENTS. [id number] 22:17:00 Test Item Value Reference Range Comments PHOSPHORUS (BEAKER) (test 5.1 mg/dL 2.3-4.7 Specimen slightly hemolyzed ggrk=027) POCT-GLUCOSE [id number] 20:57:00 Test Item Value Reference Range Comments POC-GLUCOSE METER (BEAKER) 90 mg/dL 70-[address] [facility] [address] [facility] (test plab=5558) [facility] [address] BLOOD GAS, [id number] 20:52:00 Test Item Value Reference Range Comments PH ARTERIAL (BEAKER) (test nmdt=396) 7.35 7.35-7.45 PCO2 ARTERIAL (BEAKER) (test jyfk=859) 49 mmHg 35-45 PO2 ARTERIAL (BEAKER) (test bboi=652) 100 mmHg 80-90 O2 SATURATION ARTERIAL (BEAKER) (test wlml=087) 97.0 % 96.0-97.0 HCO3 ARTERIAL (BEAKER) (test qmtu=983) 26 mmol/L 21-29 BASE EXCESS ARTERIAL (BEAKER) (test kfnl=917) 0.3 mmol/L -2.0-3.0 PATIENT TEMPERATURE (BEAKER) (test mfup=0182) 37.7 C FIO2 (BEAKER) (test fmmu=9469) 40.0 % [id number] 18:57:00 Test Item Value Reference Range Comments PARTIAL THROMBOPLASTIN TIME (BEAKER) (test 70.7 seconds 22.5-36.0 dlfy=780) BLOOD GAS, [id number] 16:52:00 Test Item Value Reference Range Comments PH ARTERIAL (BEAKER) (test hlyz=467) 7.37 7.35-7.45 PCO2 ARTERIAL (BEAKER) (test omqx=727) 47 mmHg 35-45 PO2 ARTERIAL (BEAKER) (test nkpe=529) 117 mmHg 80-90 O2 SATURATION ARTERIAL (BEAKER) (test qfrr=436) 98.0 % 96.0-97.0 HCO3 ARTERIAL (BEAKER) (test gudf=439) 26 mmol/L 21-29 BASE EXCESS ARTERIAL (BEAKER) (test mktd=631) 0.5 mmol/L -2.0-3.0 PATIENT TEMPERATURE (BEAKER) (test nsmk=6657) 37.7 C FIO2 (BEAKER) (test ojfm=3772) 60.0 % GLUCOSE-STAT [id number] 16:52:00 Test Item Value Reference Range Comments GLUCOSE RANDOM (BEAKER) (test arzr=858) 149 mg/dL 70-110 [id number] 16:22:00 Test Item Value Reference Range Comments PARTIAL THROMBOPLASTIN TIME (BEAKER) (test 197.7 seconds 22.5-36.0 hhcn=345) PROTHROMBIN [id number] 16:15:00 Test Item Value Reference Range Comments PROTIME (BEAKER) (test ycig=321) 16.4 seconds 11.7-14.7 INR (BEAKER) (test jdak=313) 1.3 <=5.9 RECOMMENDED COUMADIN/WARFARIN INR THERAPY RANGESSTANDARD DOSE: 2.0 - 3.0 Includes: PROPHYLAXIS forvenous thrombosis, systemic embolization; TREATMENT for venous thrombosis and/or pulmonary embolus.HIGH RISK: Target INR is 2.5-3.5 for patients with mechanical heart valves.[id number] 16:15:00 Test Item Value Reference Range Comments FIBRINOGEN LEVEL (BEAKER) (test xguq=471) 303 mg/dl 225-434 [id number] 16:15:00 Test Item Value Reference Range Comments MAGNESIUM (BEAKER) (test 3.0 mg/dL 1.6-2.6 Specimen moderately hemolyzed whuf=187) [id number] 16:15:00 Test Item Value Reference Range Comments PHOSPHORUS (BEAKER) (test 6.6 mg/dL 2.3-4.7 Specimen moderately hemolyzed ovme=604) BASIC METABOLIC [id number] 16:15:00 Test Item Value Reference Range Comments SODIUM (BEAKER) (test 144 meq/L 136-145 cqgb=131) POTASSIUM (BEAKER) (test 4.1 meq/L 3.5-5.1 Specimen moderately jgtc=343) hemolyzed CHLORIDE (BEAKER) (test 106 meq/L 98-107 ligd=312) CO2 (BEAKER) (test 27 meq/L 22-29 fbnz=528) BLOOD UREA NITROGEN 30 mg/dL 7-21 (BEAKER) (test leko=003) CREATININE (BEAKER) (test 1.99 mg/dL 0.57-1.25 Specimen moderately qnhl=659) hemolyzed GLUCOSE RANDOM (BEAKER) 165 mg/dL 70-105 (test nzrx=376) CALCIUM (BEAKER) (test 8.6 mg/dL 8.4-10.2 jdfk=144) EGFR (BEAKER) (test 30 mL/min/1.73 sq m ESTIMATED GFR IS NOT lvam=6664) ACCURATE CREATININE CLEARANCE IN PREDICTING GLOMERULAR FILTRATION RATE. ESTIMATED GFR IS NOT APPLICABLE FOR DIALYSIS PATIENTS. CBC (HEMOGRAM ONLY)2017-07-19 16:13:00 Test Item Value Reference Range Comments WHITE BLOOD CELL COUNT (BEAKER) (test qgkw=274) 14.5 K/ L 3.5-10.5 RED BLOOD CELL COUNT (BEAKER) (test ulxg=971) 3.55 M/ L 3.93-5.22 HEMOGLOBIN (BEAKER) (test laje=841) 10.7 GM/DL 11.2-15.7 HEMATOCRIT (BEAKER) (test ezkd=243) 34.9 % 34.1-44.9 MEAN CORPUSCULAR VOLUME (BEAKER) (test wrqc=847) 98.3 fL 79.4-94.8 MEAN CORPUSCULAR HEMOGLOBIN (BEAKER) (test 30.1 pg 25.6-32.2 slzp=937) MEAN CORPUSCULAR HEMOGLOBIN CONC (BEAKER) (test 30.7 GM/DL 32.2-35.5 uszj=781) RED CELL DISTRIBUTION WIDTH (BEAKER) (test 13.3 % 11.7-14.4 lhqs=770) PLATELET COUNT (BEAKER) (test arfl=869) 235 K/CU MM 150-450 MEAN PLATELET VOLUME (BEAKER) (test mvfz=240) 11.0 fL 9.4-12.3 NUCLEATED RED BLOOD CELLS (BEAKER) (test 0 /100 WBC 0-0 xaot=458) LACTIC ACID, ARTERIAL, WHOLE [id number] 16:12:00 Test Item Value Reference Range Comments LACTATE BLOOD ARTERIAL (2) 2.0 mmol/L 0.5-2.2 Specimen slightly hemolyzed (BEAKER) (test hqsq=8062) Effective 08/06/2015: Units/Reference Range ChangeNew: 0.5-2.2 mmol/L Previous: 5 -20 mg/dLCALCIUM, [id number] 15:54:00 Test Item Value Reference Range Comments CALCIUM IONIZED (BEAKER) (test jukm=476) 1.14 mmol/L 1.12-1.27 PH, BLOOD (BEAKER) (test akbs=5656) 7.24 SODIUM NA-STAT [id number] 15:54:00 Test Item Value Reference Range Comments SODIUM (BEAKER) (test mydo=470) 143 meq/L 135-148 POTASSIUM-STAT [id number] 15:54:00 Test Item Value Reference Range Comments POTASSIUM (BEAKER) (test gobf=482) 3.9 meq/L 3.6-5.5 BLOOD GAS, [id number] 15:54:00 Test Item Value Reference Range Comments PH ARTERIAL (BEAKER) (test wleh=457) 7.26 7.35-7.45 PCO2 ARTERIAL (BEAKER) (test fsrj=665) 69 mmHg 35-45 PO2 ARTERIAL (BEAKER) (test sull=901) 74 mmHg 80-90 O2 SATURATION ARTERIAL (BEAKER) (test ovtj=402) 93.4 % 96.0-97.0 HCO3 ARTERIAL (BEAKER) (test sown=536) 31 mmol/L 21-29 BASE EXCESS ARTERIAL (BEAKER) (test adks=814) 2.0 mmol/L -2.0-3.0 PATIENT TEMPERATURE (BEAKER) (test qcoh=4964) 35.6 C FIO2 (BEAKER) (test nqnv=6880) 50.0 % GLUCOSE-STAT [id number] 15:54:00 Test Item Value Reference Range Comments GLUCOSE RANDOM (BEAKER) (test qxts=412) 169 mg/dL 70-110 HGB/HCT (H&H) - STAT [id number] 15:54:00 Test Item Value Reference Range Comments HEMOGLOBIN (STEVAN) (test nups=910) 11.7 g/dL 12.0-15.0 HEMATOCRIT (STEVAN) (test mozc=158) 34.0 % 36.0-45.0 RAD, CHEST, 1 VIEW, NON [id number] 15:49:00Reason for exam:->sp PCI/ intubatedFINAL REPORT TECHNIQUE: [...] Bones are osteopenic. No fracture. Signed: Dawson Noelepcamilla Verified Date/Time: 07/19/2017 15:49:37 Reading Location: [facility] RadiologyReading Room [id number] 14:13:00 Test Item Value Reference Range Comments ACTIVATED CLOTTING TIME [address] [facility] [address] ([place]) (test tapk=087) [facility] [address] TROPONIN [id number] 12:32:00 Test Item Value Reference Range Comments TROPONIN I (STEVAN) (test aakf=417) 119.79 ng/mL 0.00-0.03 Troponin I (TnI) levels [...] and persistent tachyarrhythmia.CREATINE KINASE (CK), TOTAL AND [id number] 12:26:00 Test Item Value Reference Range Comments CREATINE KINASE TOTAL (DAMASOAKER) (test hklu=045) 2405 U/L 29-200 CREATINE KINASE-MB (BEAKER) (test gdha=670) 65.6 ng/mL 0.0-6.6 CREATINE KINASE-MB INDEX (BEAKER) (test hhmc=661) 2.7 % CK-MB Reference Range:<6.7 Normal6.7-10.0 Borderline>10.0 AbnormalPOCT-GLUCOSE [id number] 12:20:00 Test Item Value Reference Range Comments POC-GLUCOSE METER (BEAKER) 183 mg/dL 70-110 TESTED AT [address] (test ywve=5340) [facility] [address] [id number] 12:03:00 Test Item Value Reference Range Comments MAGNESIUM (BEAKER) (test fcsh=730) 2.8 mg/dL 1.6-2.6 [id number] 12:03:00 Test Item Value Reference Range Comments PHOSPHORUS (BEAKER) (test wnls=933) 5.3 mg/dL 2.3-4.7 BASIC METABOLIC [id number] 12:03:00 Test Item Value Reference Range Comments SODIUM (BEAKER) (test 143 meq/L 136-145 dord=522) POTASSIUM (BEAKER) (test 3.8 meq/L 3.5-5.1 dzhm=145) CHLORIDE (BEAKER) (test 106 meq/L 98-107 knph=127) CO2 (BEAKER) (test 27 meq/L 22-29 fknz=231) BLOOD UREA NITROGEN 29 mg/dL 7-21 (BEAKER) (test zwdu=235) CREATININE (BEAKER) (test 1.92 mg/dL 0.57-1.25 gnkb=970) GLUCOSE RANDOM (BEAKER) 188 mg/dL 70-105 (test zycw=495) CALCIUM (BEAKER) (test 8.7 mg/dL 8.4-10.2 ttft=687) EGFR (BEAKER) (test 31 mL/min/1.73 sq m ESTIMATED GFR IS NOT iqwm=7514) ACCURATE CREATININE CLEARANCE IN PREDICTING GLOMERULAR FILTRATION RATE. ESTIMATED GFR IS NOT APPLICABLE FOR DIALYSIS PATIENTS. POCT-GLUCOSE [id number] 11:19:00 Test Item Value Reference Range Comments POC-GLUCOSE METER (BEAKER) 190 mg/dL 70-110 TESTED AT [address] (test ijux=7376) [facility] [address] POCT-GLUCOSE [id number] 10:12:00 Test Item Value Reference Range Comments POC-GLUCOSE METER (BEAKER) 197 mg/dL 70-110 TESTED AT [address] (test prwp=5993) [facility] [address] POCT-GLUCOSE [id number] 09:21:00 Test Item Value Reference Range Comments POC-GLUCOSE METER (BEAKER) 221 mg/dL 70-110 TESTED AT [address] (test kjmk=3150) [place] [id number] LACTIC ACID, ARTERIAL, WHOLE [id number] 09:19:00 Test Item Value Reference Range Comments LACTATE BLOOD ARTERIAL (2) (BEAKER) (test 2.4 mmol/L 0.5-2.2 wikp=3074) Effective 08/06/2015: Units/Reference Range ChangeNew: 0.5-2.2 mmol/L Previous: 5 -20 mg/dLPROTHROMBIN [id number] 08:44:00 Test Item Value Reference Range Comments PROTIME (BEAKER) (test lysw=741) 14.4 seconds 11.7-14.7 INR (BEAKER) (test ijdq=523) 1.1 <=5.9 RECOMMENDED COUMADIN/WARFARIN INR THERAPY RANGESSTANDARD DOSE: 2.0 - 3.0 Includes: PROPHYLAXIS forvenous thrombosis, systemic embolization; TREATMENT for venous thrombosis and/or pulmonary embolus.HIGH RISK: Target INR is 2.5-3.5 for patients with mechanical heart valves.[id number] 08:44:00 Test Item Value Reference Range Comments FIBRINOGEN LEVEL (BEAKER) (test vbof=922) 367 mg/dl 225-434 [id number] 08:44:00 Test Item Value Reference Range Comments PARTIAL THROMBOPLASTIN TIME (BEAKER) (test 30.0 seconds 22.5-36.0 jtna=679) POCT-GLUCOSE [id number] 07:52:00 Test Item Value Reference Range Comments POC-GLUCOSE METER (BEAKER) 215 mg/dL 70-110 TESTED AT [address] (test xhmg=2184) [facility] [address] CT, CHEST, WITHOUT [id number] 07:50:00KEEP PATIENT ON CT TABLE. CALL RADIOLOGIST [...] Verified Date /Time: 07/19/2017 07:50:43 Reading Location: [facility] Diagnostic Imaging Reading Room - [place] [id number] Electronically signed by: LYNNETTE CASTRO MD on 07:50 AMPOCT-GLUCOSE [id number] 07:37:00 Test Item Value Reference Range Comments POC-GLUCOSE METER (BEAKER) 225 mg/dL 70-[address] [facility] [address] (test phnm=0411) [facility] [address] RAD, CHEST, 1 VIEW, NON [id number] 04:04:00Reason for exam:->v tach/ iabpShould this be [...] MDReport Verified Date/Time: 07/19/2017 04:04:19 Reading Location: [address] Ortho Consult Reading Room [id number] 03:59:00 Test Item Value Reference Range Comments PHOSPHORUS (BEAKER) (test pokm=398) 4.4 mg/dL 2.3-4.7 [id number] 03:59:00 Test Item Value Reference Range Comments MAGNESIUM (BEAKER) (test mvcm=833) 2.5 mg/dL 1.6-2.6 BASIC METABOLIC [id number] 03:59:00 Test Item Value Reference Range Comments SODIUM (BEAKER) (test 145 meq/L 136-145 aekz=013) POTASSIUM (BEAKER) (test 3.6 meq/L 3.5-5.1 dgsi=967) CHLORIDE (BEAKER) (test 106 meq/L 98-107 mxro=209) CO2 (BEAKER) (test 25 meq/L 22-29 vpct=291) BLOOD UREA NITROGEN 28 mg/dL 7-21 (BEAKER) (test matw=289) CREATININE (BEAKER) (test 1.93 mg/dL 0.57-1.25 yqkk=368) GLUCOSE RANDOM (BEAKER) 216 mg/dL 70-105 (test gjno=765) CALCIUM (BEAKER) (test 9.0 mg/dL 8.4-10.2 iqng=271) EGFR (BEAKER) (test 31 mL/min/1.73 sq m ESTIMATED GFR IS NOT rxzr=9424) ACCURATE CREATININE CLEARANCE IN PREDICTING GLOMERULAR FILTRATION RATE. ESTIMATED GFR IS NOT APPLICABLE FOR DIALYSIS PATIENTS. B-TYPE NATRIURETIC FACTOR (BNP)2017-07-19 03:10:00 Test Item Value Reference Range Comments B-TYPE NATRIURETIC PEPTIDE (BEAKER) (test 2662 pg/mL 0-100 xhpe=173) HEPATIC FUNCTION [id number] 03:04:00 Test Item Value Reference Range Comments TOTAL PROTEIN (BEAKER) (test eatd=528) 6.6 gm/dL 6.0-8.3 ALBUMIN (BEAKER) (test czcj=8740) 3.5 g/dL 3.5-5.0 BILIRUBIN TOTAL (BEAKER) (test bjbv=319) 0.4 mg/dL 0.2-1.2 BILIRUBIN DIRECT (BEAKER) (test ltoh=328) 0.2 mg/dL 0.1-0.5 ALKALINE PHOSPHATASE (BEAKER) (test mwem=321) 57 U/L 40-150 AST (SGOT) (BEAKER) (test evpu=031) 359 U/L 5-34 ALT (SGPT) (BEAKER) (test wnod=837) 99 U/L 6-55 CREATINE KINASE (CK)2017-07-19 03:04:00 Test Item Value Reference Range Comments CREATINE KINASE TOTAL (BEAKER) (test qsul=557) 2888 U/L 29-200 CBC W/PLT COUNT & AUTO [id number] 02:56:00 Test Item Value Reference Range Comments WHITE BLOOD CELL COUNT (BEAKER) (test drqi=266) 19.0 K/ L 3.5-10.5 RED BLOOD CELL COUNT (BEAKER) (test nmwc=174) 3.69 M/ L 3.93-5.22 HEMOGLOBIN (BEAKER) (test vaut=022) 11.2 GM/DL 11.2-15.7 HEMATOCRIT (BEAKER) (test zpdr=660) 35.3 % 34.1-44.9 MEAN CORPUSCULAR VOLUME (BEAKER) (test fhfm=281) 95.7 fL 79.4-94.8 MEAN CORPUSCULAR HEMOGLOBIN (BEAKER) (test 30.4 pg 25.6-32.2 rphx=669) MEAN CORPUSCULAR HEMOGLOBIN CONC (BEAKER) (test 31.7 GM/DL 32.2-35.5 vxgh=521) RED CELL DISTRIBUTION WIDTH (BEAKER) (test 13.1 % 11.7-14.4 flwj=686) PLATELET COUNT (BEAKER) (test plze=388) 253 K/CU MM 150-450 MEAN PLATELET VOLUME (BEAKER) (test vtjl=689) 10.0 fL 9.4-12.3 NUCLEATED RED BLOOD CELLS (BEAKER) (test 0 /100 WBC 0-0 ncgo=671) NEUTROPHILS RELATIVE PERCENT (BEAKER) (test 86 % acvb=010) LYMPHOCYTES RELATIVE PERCENT (BEAKER) (test 6 % klfd=077) MONOCYTES RELATIVE PERCENT (BEAKER) (test 7 % zcxw=605) EOSINOPHILS RELATIVE PERCENT (BEAKER) (test 0 % mwoj=349) BASOPHILS RELATIVE PERCENT (BEAKER) (test 0 % zlro=122) NEUTROPHILS ABSOLUTE COUNT (BEAKER) (test 16.34 K/ L 1.56-6.13 pexa=641) LYMPHOCYTES ABSOLUTE COUNT (BEAKER) (test 1.15 K/ L 1.18-3.74 tpby=594) MONOCYTES ABSOLUTE COUNT (BEAKER) (test 1.39 K/ L 0.24-0.36 hllh=634) EOSINOPHILS ABSOLUTE COUNT (BEAKER) (test 0.00 K/ L 0.04-0.36 aiib=407) BASOPHILS ABSOLUTE COUNT (BEAKER) (test 0.02 K/ L 0.01-0.08 ggdi=836) IMMATURE GRANULOCYTES-RELATIVE PERCENT (BEAKER) 0 % 0-1 (test vsmr=8091) CALCIUM, [id number] 02:49:00 Test Item Value Reference Range Comments CALCIUM IONIZED (BEAKER) (test ecce=022) 1.14 mmol/L 1.12-1.27 PH, BLOOD (BEAKER) (test lwxz=5393) 7.36 CBC (HEMOGRAM ONLY)2017-07-19 02:48:00 Test Item Value Reference Range Comments WHITE BLOOD CELL COUNT (BEAKER) (test pcfu=073) 19.0 K/ L 3.5-10.5 RED BLOOD CELL COUNT (BEAKER) (test linj=837) 3.69 M/ L 3.93-5.22 HEMOGLOBIN (BEAKER) (test jmwu=668) 11.2 GM/DL 11.2-15.7 HEMATOCRIT (BEAKER) (test ansh=738) 35.3 % 34.1-44.9 MEAN CORPUSCULAR VOLUME (BEAKER) (test aktw=896) 95.7 fL 79.4-94.8 MEAN CORPUSCULAR HEMOGLOBIN (BEAKER) (test 30.4 pg 25.6-32.2 alwm=473) MEAN CORPUSCULAR HEMOGLOBIN CONC (BEAKER) (test 31.7 GM/DL 32.2-35.5 azob=003) RED CELL DISTRIBUTION WIDTH (BEAKER) (test 13.1 % 11.7-14.4 ygra=928) PLATELET COUNT (BEAKER) (test jyht=878) 253 K/CU MM 150-450 MEAN PLATELET VOLUME (BEAKER) (test phjn=251) 10.0 fL 9.4-12.3 NUCLEATED RED BLOOD CELLS (BEAKER) (test 0 /100 WBC 0-0 cdqq=923) BLOOD GAS, [id number] 02:48:00 Test Item Value Reference Range Comments PH ARTERIAL (BEAKER) (test nbgl=983) 7.35 7.35-7.45 PCO2 ARTERIAL (BEAKER) (test fdlk=997) 55 mmHg 35-45 PO2 ARTERIAL (BEAKER) (test sszi=828) 73 mmHg 80-90 O2 SATURATION ARTERIAL (BEAKER) (test sstw=280) 93.3 % 96.0-97.0 HCO3 ARTERIAL (BEAKER) (test evil=178) 30 mmol/L 21-29 BASE EXCESS ARTERIAL (BEAKER) (test urou=078) 3.1 mmol/L -2.0-3.0 PATIENT TEMPERATURE (BEAKER) (test hadn=9010) 37.5 C FIO2 (BEAKER) (test gdll=1689) 40.0 % POCT-GLUCOSE [id number] 02:21:00 Test Item Value Reference Range Comments POC-GLUCOSE METER (BEAKER) 184 mg/dL 70-[address] [facility] [address] [facility] (test nwsk=2376) [facility] [address] POCT-GLUCOSE [id number] 01:15:00 Test Item Value Reference Range Comments POC-GLUCOSE METER (BEAKER) 173 mg/dL 70-[address] [facility] [address] [facility] (test pusf=9674) [facility] [address] [id number] 00:55:00 Test Item Value Reference Range Comments PHOSPHORUS (BEAKER) (test dzja=399) 3.3 mg/dL 2.3-4.7 [id number] 00:55:00 Test Item Value Reference Range Comments MAGNESIUM (BEAKER) (test zptc=557) 1.8 mg/dL 1.6-2.6 BASIC METABOLIC [id number] 00:55:00 Test Item Value Reference Range Comments SODIUM (BEAKER) (test 143 meq/L 136-145 mtkj=071) POTASSIUM (BEAKER) (test 3.9 meq/L 3.5-5.1 nrqx=661) CHLORIDE (BEAKER) (test 106 meq/L 98-107 lhfq=585) CO2 (BEAKER) (test 27 meq/L 22-29 uikp=451) BLOOD UREA NITROGEN 27 mg/dL 7-21 (BEAKER) (test iwvw=457) CREATININE (BEAKER) (test 1.90 mg/dL 0.57-1.25 igpr=741) GLUCOSE RANDOM (BEAKER) 181 mg/dL 70-105 (test ocux=932) CALCIUM (BEAKER) (test 8.9 mg/dL 8.4-10.2 vraq=335) EGFR (BEAKER) (test 32 mL/min/1.73 sq m ESTIMATED GFR IS NOT vpqa=2279) ACCURATE CREATININE CLEARANCE IN PREDICTING GLOMERULAR FILTRATION RATE. ESTIMATED GFR IS NOT APPLICABLE FOR DIALYSIS PATIENTS. POCT-GLUCOSE [id number] 00:11:00 Test Item Value Reference Range Comments POC-GLUCOSE METER (BEAKER) 177 mg/dL 70-[address] [facility] [address] [facility] (test jncy=2140) [facility] [address] POCT-GLUCOSE [id number] 23:25:00 Test Item Value Reference Range Comments POC-GLUCOSE METER (BEAKER) 206 mg/dL 70-110 TESTED AT [place] [id number] [facility] (test lmqg=5580) [facility] [address] POCT-GLUCOSE [id number] 22:19:00 Test Item Value Reference Range Comments POC-GLUCOSE METER (BEAKER) 243 mg/dL 70-110 TESTED AT [address] (test tjes=6695) [facility] [address] POCT-GLUCOSE [id number] 21:37:00 Test Item Value Reference Range Comments POC-GLUCOSE METER (BEAKER) 235 mg/dL 70-110 TESTED AT [address] (test lfec=2225) [facility] [address] POCT-GLUCOSE [id number] 20:04:00 Test Item Value Reference Range Comments POC-GLUCOSE METER (BEAKER) 216 mg/dL 70-110 TESTED AT [address] (test ftkp=1004) [facility] [address] POCT-GLUCOSE [id number] 18:40:00 Test Item Value Reference Range Comments POC-GLUCOSE METER (BEAKER) 271 mg/dL 70-110 TESTED AT [address] (test vpwv=8942) [facility] [address] [id number] 18:32:00 Test Item Value Reference Range Comments MAGNESIUM (BEAKER) (test 1.9 mg/dL 1.6-2.6 Specimen slightly hemolyzed ieou=218) [id number] 18:32:00 Test Item Value Reference Range Comments PHOSPHORUS (BEAKER) (test 3.1 mg/dL 2.3-4.7 Specimen slightly hemolyzed ikty=263) BASIC METABOLIC [id number] 18:32:00 Test Item Value Reference Range Comments SODIUM (BEAKER) (test 142 meq/L 136-145 jcha=242) POTASSIUM (BEAKER) (test 3.9 meq/L 3.5-5.1 Specimen slightly lkrd=441) hemolyzed CHLORIDE (BEAKER) (test 107 meq/L 98-107 nsiq=507) CO2 (BEAKER) (test 24 meq/L 22-29 bjyi=868) BLOOD UREA NITROGEN 22 mg/dL 7-21 (BEAKER) (test aotv=763) CREATININE (BEAKER) (test 1.55 mg/dL 0.57-1.25 Specimen slightly lpkq=614) hemolyzed GLUCOSE RANDOM (BEAKER) 242 mg/dL 70-105 (test ofyj=138) CALCIUM (BEAKER) (test 8.8 mg/dL 8.4-10.2 ptnq=047) EGFR (BEAKER) (test 40 mL/min/1.73 sq m ESTIMATED GFR IS NOT vrrh=6779) ACCURATE CREATININE CLEARANCE IN PREDICTING GLOMERULAR FILTRATION RATE. ESTIMATED GFR IS NOT APPLICABLE FOR DIALYSIS PATIENTS. BLOOD GAS, [id number] 18:24:00 Test Item Value Reference Range Comments PH ARTERIAL (BEAKER) (test qydk=400) 7.34 7.35-7.45 PCO2 ARTERIAL (BEAKER) (test ppwa=935) 51 mmHg 35-45 PO2 ARTERIAL (BEAKER) (test jmdc=868) 57 mmHg 80-90 O2 SATURATION ARTERIAL (BEAKER) (test eios=727) 87.5 % 96.0-97.0 HCO3 ARTERIAL (BEAKER) (test mptt=899) 27 mmol/L 21-29 BASE EXCESS ARTERIAL (BEAKER) (test zgei=918) 1.0 mmol/L -2.0-3.0 PATIENT TEMPERATURE (BEAKER) (test dpzk=4975) 37.2 C FIO2 (BEAKER) (test wzfv=4861) 40.0 % POCT-GLUCOSE [id number] 17:14:00 Test Item Value Reference Range Comments POC-GLUCOSE METER (BEAKER) 299 mg/dL 70-110 TESTED AT [place] [address] [address] (test ymsb=4124) [facility] [address] LACTIC ACID, ARTERIAL, WHOLE [id number] 16:37:00 Test Item Value Reference Range Comments LACTATE BLOOD ARTERIAL (2) 2.9 mmol/L 0.5-2.2 Specimen slightly hemolyzed (BEAKER) (test cisq=9350) Effective 08/06/2015: Units/Reference Range ChangeNew: 0.5-2.2 mmol/L Previous: 5 -20 mg/[id number] 15:45:00 Test Item Value Reference Range Comments GLUCOSE RANDOM (BEAKER) (test aydo=612) 439 mg/dL 70-105 If last glucose was less than 500, may do bedside glucose instead of serum glucose.POCT-GLUCOSE [id number] 15:21:00 Test Item Value Reference Range Comments POC-GLUCOSE METER (BEAKER) 374 mg/dL 70-110 Notified PAULA BERGER/TESTED AT [facility] (test itfk=2632) [address] [facility] [address] [id number] 15:14:00 Test Item Value Reference Range Comments POTASSIUM (BEAKER) (test fywr=065) 4.0 meq/L 3.5-5.1 If last glucose was less than 500, may do bedside glucose instead of serum glucose.URINALYSIS W/ [id number] 15:03:00 Test Item Value Reference Range Comments COLOR (BEAKER) (test ufzd=820) Yellow CLARITY (BEAKER) (test bxlr=031) Clear SPECIFIC GRAVITY UA (BEAKER) (test qvlg=380) 1.050 1.001-1.035 PH UA (BEAKER) (test zdrj=607) 5.5 5.0-8.0 PROTEIN UA (BEAKER) (test frbi=182) 50 mg/dL Negative GLUCOSE UA (BEAKER) (test lwny=691) >1000 mg/dL Negative KETONES UA (BEAKER) (test owqk=680) Negative Negative BILIRUBIN UA (BEAKER) (test awym=378) Negative Negative BLOOD UA (BEAKER) (test ahnd=634) Moderate Negative NITRITE UA (BEAKER) (test kwsk=578) Negative Negative LEUKOCYTE ESTERASE UA (BEAKER) (test rasu=917) Negative Negative UROBILINOGEN UA (BEAKER) (test vlbd=298) 0.2 mg/dL 0.2-1.0 RBC UA (BEAKER) (test pifz=087) 16 /HPF WBC UA (BEAKER) (test iyvc=801) 11 /HPF BACTERIA (BEAKER) (test pcmc=725) Rare MUCUS (BEAKER) (test etnl=2969) Rare SQUAMOUS EPITHELIAL (BEAKER) (test pzgx=266) 1 /HPF SOURCE(BEAKER) (test jbuj=7591) U/S, RENAL, [id number] 14:36:00Reason for exam:->acute renal failure , hydronephrosisShould [...] MDReport Verified Date/Time: 07/18/2017 14:36:40 Reading Location: [place] [id number] Ultrasound Reading Room Electronically signed by: VIRGINIA DIAZ M.D. on 02:36 PMT4, [id number] 14:31:00 Test Item Value Reference Range Comments FREE T4 (BEAKER) (test doup=655) 1.13 ng/dL 0.70-1.48 BLOOD GAS, [id number] 14:01:00 Test Item Value Reference Range Comments PH ARTERIAL (BEAKER) (test ljaz=696) 7.42 7.35-7.45 PCO2 ARTERIAL (BEAKER) (test tqji=910) 42 mmHg 35-45 PO2 ARTERIAL (BEAKER) (test zwja=997) 66 mmHg 80-90 O2 SATURATION ARTERIAL (BEAKER) (test akmn=389) 93.5 % 96.0-97.0 HCO3 ARTERIAL (BEAKER) (test kdfh=877) 27 mmol/L 21-29 BASE EXCESS ARTERIAL (BEAKER) (test rcnb=516) 2.1 mmol/L -2.0-3.0 PATIENT TEMPERATURE (BEAKER) (test zxva=5012) 36.9 C FIO2 (BEAKER) (test dwud=1458) 40.0 % HEMOGLOBIN [id number] 13:57:00 Test Item Value Reference Range Comments HEMOGLOBIN A1C (BEAKER) (test rnpj=694) 9.8 % 4.3-6.1 SODIUM, RANDOM [id number] 13:49:00 Test Item Value Reference Range Comments SODIUM URINE (BEAKER) (test ckwg=391) 22 meq/L Reference Range: No NormalsTSH/FREE T4 IF [id number] 13:49:00 Test Item Value Reference Range Comments THYROID STIMULATING HORMONE (BEAKER) (test 0.27 uIU/mL 0.35-4.94 ytag=323) POCT-GLUCOSE [id number] 13:47:00 Test Item Value Reference Range Comments POC-GLUCOSE METER (BEAKER) 398 mg/dL 70-[address] [facility] [address] (test tajj=9305) [place] [address] CREATININE, RANDOM [id number] 13:43:00 Test Item Value Reference Range Comments CREATININE URINE (BEAKER) (test kkbp=195) 85.4 mg/dL Reference Range: No NormalsPROTEIN, RANDOM [id number] 13:43:00 Test Item Value Reference Range Comments PROTEIN, URINE (BEAKER) (test rnpn=9132) 75 mg/dL 0-14 B-TYPE NATRIURETIC FACTOR (BNP)2017-07-18 13:17:00 Test Item Value Reference Range Comments B-TYPE NATRIURETIC PEPTIDE (BEAKER) (test 1847 pg/mL 0-100 yarc=972) BASIC METABOLIC [id number] 13:13:00 Test Item Value Reference Range Comments SODIUM (BEAKER) (test 138 meq/L 136-145 ihrm=093) POTASSIUM (BEAKER) (test 4.8 meq/L 3.5-5.1 pszg=713) CHLORIDE (BEAKER) (test 101 meq/L 98-107 hclz=417) CO2 (BEAKER) (test 26 meq/L 22-29 jobe=900) BLOOD UREA NITROGEN 21 mg/dL 7-21 (BEAKER) (test hlmy=381) CREATININE (BEAKER) (test 1.62 mg/dL 0.57-1.25 hmtc=799) GLUCOSE RANDOM (BEAKER) 527 mg/dL 70-105 (test exfy=282) CALCIUM (BEAKER) (test 8.9 mg/dL 8.4-10.2 xjyy=972) EGFR (BEAKER) (test 38 mL/min/1.73 sq m ESTIMATED GFR IS NOT obtm=6947) ACCURATE CREATININE CLEARANCE IN PREDICTING GLOMERULAR FILTRATION RATE. ESTIMATED GFR IS NOT APPLICABLE FOR DIALYSIS PATIENTS. If last glucose was less than 500, may do bedside glucose instead of serum glucose.[id number] 13:12:00 Test Item Value Reference Range Comments MAGNESIUM (BEAKER) (test vebc=512) 1.9 mg/dL 1.6-2.6 If last glucose was less than 500, may do bedside glucose instead of serum glucose.[id number] 13:12:00 Test Item Value Reference Range Comments LIPASE (BEAKER) (test bfyo=657) 106 U/L 8-78 If last glucose was less than 500, may do bedside glucose instead of serum glucose.[id number] 13:11:00 Test Item Value Reference Range Comments PHOSPHORUS (BEAKER) (test yjsg=427) 3.3 mg/dL 2.3-4.7 If last glucose was less than 500, may do bedside glucose instead of serum glucose.POCT-GLUCOSE [id number] 12:49:00 Test Item Value Reference Range Comments POC-GLUCOSE METER (BEAKER) 498 mg/dL 70-110 Notified PAULA BEREGR/TESTED AT [facility] (test lwwc=8453) [address] [place] [address] LACTIC ACID, VENOUS, WHOLE [id number] 12:11:00 Test Item Value Reference Range Comments LACTATE BLOOD VENOUS (2) (BEAKER) (test 3.8 mmol/L 0.5-2.2 kzub=7662) Effective 08/06/2015: Units/Reference Range ChangeNew: 0.5-2.2 mmol/L Previous: 5 -20 mg/[id number] 12:10:00 Test Item Value Reference Range Comments PROCALCITONIN (BEAKER) (test gxit=3538) 3.80 ng/mL <0.05 SEPSIS RISK (ng/mL)Low: 0.05-0.50Intermediate: 0.51-2.00High: & gt;=2.01CBC W/PLT COUNT & AUTO [id number] 12:10:00 Test Item Value Reference Range Comments WHITE BLOOD CELL COUNT (BEAKER) (test erzu=689) 11.2 K/ L 3.5-10.5 RED BLOOD CELL COUNT (BEAKER) (test bcfe=275) 3.98 M/ L 3.93-5.22 HEMOGLOBIN (BEAKER) (test mgjv=296) 12.0 GM/DL 11.2-15.7 HEMATOCRIT (BEAKER) (test fqaf=237) 38.5 % 34.1-44.9 MEAN CORPUSCULAR VOLUME (BEAKER) (test crin=918) 96.7 fL 79.4-94.8 MEAN CORPUSCULAR HEMOGLOBIN (BEAKER) (test 30.2 pg 25.6-32.2 isls=677) MEAN CORPUSCULAR HEMOGLOBIN CONC (BEAKER) (test 31.2 GM/DL 32.2-35.5 rkep=934) RED CELL DISTRIBUTION WIDTH (BEAKER) (test 13.1 % 11.7-14.4 rmkx=708) PLATELET COUNT (BEAKER) (test rjpw=625) 222 K/CU MM 150-450 MEAN PLATELET VOLUME (BEAKER) (test vbbz=107) 10.2 fL 9.4-12.3 NUCLEATED RED BLOOD CELLS (BEAKER) (test 0 /100 WBC 0-0 jkhr=187) NEUTROPHILS RELATIVE PERCENT (BEAKER) (test 96 % tkcx=675) LYMPHOCYTES RELATIVE PERCENT (BEAKER) (test 2 % zvzf=727) MONOCYTES RELATIVE PERCENT (BEAKER) (test 2 % forc=967) EOSINOPHILS RELATIVE PERCENT (BEAKER) (test 0 % twqc=938) BASOPHILS RELATIVE PERCENT (BEAKER) (test 0 % ymto=722) NEUTROPHILS ABSOLUTE COUNT (BEAKER) (test 10.72 K/ L 1.56-6.13 aabg=032) LYMPHOCYTES ABSOLUTE COUNT (BEAKER) (test 0.24 K/ L 1.18-3.74 qvqf=158) MONOCYTES ABSOLUTE COUNT (BEAKER) (test 0.22 K/ L 0.24-0.36 ijck=855) EOSINOPHILS ABSOLUTE COUNT (BEAKER) (test 0.00 K/ L 0.04-0.36 sanj=656) BASOPHILS ABSOLUTE COUNT (BEAKER) (test 0.01 K/ L 0.01-0.08 zzfu=310) IMMATURE GRANULOCYTES-RELATIVE PERCENT (BEAKER) 0 % 0-1 (test thuv=3122) BASIC METABOLIC [id number] 11:35:00 Test Item Value Reference Range Comments SODIUM (BEAKER) (test 136 meq/L 136-145 dtnk=160) POTASSIUM (BEAKER) (test 4.8 meq/L 3.5-5.1 rcgl=539) CHLORIDE (BEAKER) (test 99 meq/L 98-107 zdht=234) CO2 (BEAKER) (test 25 meq/L 22-29 gost=165) BLOOD UREA NITROGEN 19 mg/dL 7-21 (BEAKER) (test vcak=333) CREATININE (BEAKER) (test 1.61 mg/dL 0.57-1.25 mxab=978) GLUCOSE RANDOM (BEAKER) 568 mg/dL 70-105 (test ewrr=669) CALCIUM (BEAKER) (test 8.9 mg/dL 8.4-10.2 jdln=518) EGFR (BEAKER) (test 38 mL/min/1.73 sq m ESTIMATED GFR IS NOT cdyz=3016) ACCURATE CREATININE CLEARANCE IN PREDICTING GLOMERULAR FILTRATION RATE. ESTIMATED GFR IS NOT APPLICABLE FOR DIALYSIS PATIENTS. BLOOD GAS, [id number] 10:57:00 Test Item Value Reference Range Comments PH ARTERIAL (BEAKER) (test cweh=845) 7.36 7.35-7.45 PCO2 ARTERIAL (BEAKER) (test ripm=847) 47 mmHg 35-45 PO2 ARTERIAL (BEAKER) (test hvlg=052) 78 mmHg 80-90 O2 SATURATION ARTERIAL (BEAKER) (test eint=467) 95.0 % 96.0-97.0 HCO3 ARTERIAL (BEAKER) (test idoe=650) 26 mmol/L 21-29 BASE EXCESS ARTERIAL (BEAKER) (test tdww=298) 0.4 mmol/L -2.0-3.0 PATIENT TEMPERATURE (BEAKER) (test vydq=9124) 37.0 C FIO2 (BEAKER) (test jind=9277) 100.0 % RAD, CHEST, 1 VIEW, NON [id number] 10:38:00Reason for exam:->IABP Should this be performed [...] MDReport Verified Date/Time: 07/18/2017 10:38:31 Reading Location: [facility] Radiology Reading Room CBC W/PLT COUNT & AUTO [id number] 10: 01:00 Test Item Value Reference Range Comments WHITE BLOOD CELL COUNT (BEAKER) (test utgc=487) 12.8 K/ L 3.5-10.5 RED BLOOD CELL COUNT (BEAKER) (test hddw=360) 3.95 M/ L 3.93-5.22 HEMOGLOBIN (BEAKER) (test zoso=561) 11.9 GM/DL 11.2-15.7 HEMATOCRIT (BEAKER) (test odbh=003) 38.3 % 34.1-44.9 MEAN CORPUSCULAR VOLUME (BEAKER) (test adkz=364) 97.0 fL 79.4-94.8 MEAN CORPUSCULAR HEMOGLOBIN (BEAKER) (test 30.1 pg 25.6-32.2 neyd=484) MEAN CORPUSCULAR HEMOGLOBIN CONC (BEAKER) (test 31.1 GM/DL 32.2-35.5 yjsf=461) RED CELL DISTRIBUTION WIDTH (BEAKER) (test 13.1 % 11.7-14.4 zmrl=668) PLATELET COUNT (BEAKER) (test dzzi=432) 231 K/CU MM 150-450 MEAN PLATELET VOLUME (BEAKER) (test balp=779) 10.4 fL 9.4-12.3 NUCLEATED RED BLOOD CELLS (BEAKER) (test 0 /100 WBC 0-0 ryal=427) NEUTROPHILS RELATIVE PERCENT (BEAKER) (test 91 % nkrz=522) LYMPHOCYTES RELATIVE PERCENT (BEAKER) (test 4 % kybp=690) MONOCYTES RELATIVE PERCENT (BEAKER) (test 4 % ffio=391) EOSINOPHILS RELATIVE PERCENT (BEAKER) (test 0 % dqdg=204) BASOPHILS RELATIVE PERCENT (BEAKER) (test 0 % vunn=074) NEUTROPHILS ABSOLUTE COUNT (BEAKER) (test 11.66 K/ L 1.56-6.13 vdrx=400) LYMPHOCYTES ABSOLUTE COUNT (BEAKER) (test 0.53 K/ L 1.18-3.74 jidy=091) MONOCYTES ABSOLUTE COUNT (BEAKER) (test 0.49 K/ L 0.24-0.36 tcbx=481) EOSINOPHILS ABSOLUTE COUNT (BEAKER) (test 0.01 K/ L 0.04-0.36 ajzn=160) BASOPHILS ABSOLUTE COUNT (BEAKER) (test 0.03 K/ L 0.01-0.08 lcyi=165) IMMATURE GRANULOCYTES-RELATIVE PERCENT (BEAKER) 0 % 0-1 (test hted=6002) COMPREHENSIVE METABOLIC [id number] 09:38:00 Test Item Value Reference Range Comments TOTAL PROTEIN (BEAKER) 6.7 gm/dL 6.0-8.3 Specimen slightly (test zpsc=879) hemolyzed ALBUMIN (BEAKER) (test 3.5 g/dL 3.5-5.0 Specimen slightly clzn=6352) hemolyzed ALKALINE PHOSPHATASE 70 U/L 40-150 (BEAKER) (test ayun=128) BILIRUBIN TOTAL (BEAKER) 0.6 mg/dL 0.2-1.2 Specimen slightly (test zfxc=634) hemolyzed SODIUM (BEAKER) (test 134 meq/L 136-145 yhxy=370) POTASSIUM (BEAKER) (test 4.7 meq/L 3.5-5.1 Specimen slightly wzga=982) hemolyzed CHLORIDE (BEAKER) (test 98 meq/L 98-107 qzld=183) CO2 (BEAKER) (test 25 meq/L 22-29 jakk=163) BLOOD UREA NITROGEN 19 mg/dL 7-21 (BEAKER) (test cwoe=878) CREATININE (BEAKER) (test 1.57 mg/dL 0.57-1.25 Specimen slightly qgbn=522) hemolyzed GLUCOSE RANDOM (BEAKER) 652 mg/dL 70-105 (test gatq=151) CALCIUM (BEAKER) (test 8.7 mg/dL 8.4-10.2 sbip=434) AST (SGOT) (BEAKER) (test 343 U/L 5-34 Specimen slightly lkkl=153) hemolyzed ALT (SGPT) (BEAKER) (test 89 U/L 6-55 Specimen slightly nbzz=288) hemolyzed EGFR (BEAKER) (test 39 mL/min/1.73 sq m ESTIMATED GFR IS NOT pyet=9325) ACCURATE CREATININE CLEARANCE IN PREDICTING GLOMERULAR FILTRATION RATE. ESTIMATED GFR IS NOT APPLICABLE FOR DIALYSIS PATIENTS. [id number] 09:09:00 Test Item Value Reference Range Comments ACTIVATED CLOTTING TIME [address] [facility] [address] [facility] (BEAKER) (test bukg=664) [place] [address] PROTHROMBIN [id number] 09:01:00 Test Item Value Reference Range Comments PROTIME (BEAKER) (test ucjk=962) 18.3 seconds 11.7-14.7 INR (BEAKER) (test lrvr=257) 1.5 <=5.9 RECOMMENDED COUMADIN/WARFARIN INR THERAPY RANGESSTANDARD DOSE: 2.0 - 3.0 Includes: PROPHYLAXIS forvenous thrombosis, systemic embolization; TREATMENT for venous thrombosis and/or pulmonary embolus.HIGH RISK: Target INR is 2.5-3.5 for patients with mechanical heart valves.[id number] 08:09:00 Test Item Value Reference Range Comments ACTIVATED CLOTTING TIME 213 sec TESTED AT [address] ([facility]) (test bnrh=028) [place] [address] [id number] 08:09:00 Test Item Value Reference Range Comments ACTIVATED CLOTTING TIME 263 sec TESTED AT [address] ([facility]) (test wbdf=311) [place] [address] BLOOD GAS, [id number] 07:50:00 Test Item Value Reference Range Comments PH ARTERIAL (BEAKER) (test uuky=128) 7.20 7.35-7.45 PCO2 ARTERIAL (BEAKER) (test yhvq=588) 65 mmHg 35-45 PO2 ARTERIAL (BEAKER) (test sapn=279) 133 mmHg 80-90 O2 SATURATION ARTERIAL (BEAKER) (test ohue=925) 98.1 % 96.0-97.0 HCO3 ARTERIAL (BEAKER) (test yshf=399) 25 mmol/L 21-29 BASE EXCESS ARTERIAL (BEAKER) (test jgkt=149) -4.3 mmol/L -2.0-3.0 PATIENT TEMPERATURE (BEAKER) (test qhhy=3022) 36.0 C FIO2 (BEAKER) (test asvs=6702) 100.0 % POCT-GLUCOSE [id number] 12:27:00 Test Item Value Reference Range Comments POC-GLUCOSE METER (BEAKER) 156 mg/dL 70-110 TESTED AT [address] (test vedr=5917) [place] [address] BASIC METABOLIC [id number] 05:45:00 Test Item Value Reference Range Comments SODIUM (BEAKER) (test 141 meq/L 136-145 pbsa=105) POTASSIUM (BEAKER) (test 4.1 meq/L 3.5-5.1 obmv=317) CHLORIDE (BEAKER) (test 106 meq/L 98-107 dyac=496) CO2 (BEAKER) (test 26 meq/L 22-29 xrer=671) BLOOD UREA NITROGEN 11 mg/dL 7-21 (BEAKER) (test cxsb=858) CREATININE (BEAKER) (test 0.83 mg/dL 0.57-1.25 idmh=422) GLUCOSE RANDOM (BEAKER) 139 mg/dL 70-105 (test kyaa=546) CALCIUM (BEAKER) (test 8.5 mg/dL 8.4-10.2 zpft=237) EGFR (BEAKER) (test 83 mL/min/1.73 sq m ESTIMATED GFR IS NOT gqbs=1021) ACCURATE CREATININE CLEARANCE IN PREDICTING GLOMERULAR FILTRATION RATE. ESTIMATED GFR IS NOT APPLICABLE FOR DIALYSIS PATIENTS. POCT-GLUCOSE [id number] 21:10:00 Test Item Value Reference Range Comments POC-GLUCOSE METER (BEAKER) 103 mg/dL 70-110 TESTED AT [address] (test tdvy=2926) [place] [address] POCT-GLUCOSE [id number] 17:51:00 Test Item Value Reference Range Comments POC-GLUCOSE METER (BEAKER) 138 mg/dL 70-110 TESTED AT [address] (test zags=6743) [place] [address] POCT-GLUCOSE [id number] 12:45:00 Test Item Value Reference Range Comments POC-GLUCOSE METER (BEAKER) 294 mg/dL 70-110 TESTED AT [address] (test zzhf=8761) [place] [address] CBC WITH PLATELET COUNT + MANUAL [id number] 07:04:00 Test Item Value Reference Range Comments WHITE BLOOD CELL COUNT (BEAKER) (test zzxt=856) 10.7 K/ L 4.0-10.0 RED BLOOD CELL COUNT (BEAKER) (test vvei=924) 3.91 M/ L 4.00-5.00 HEMOGLOBIN (BEAKER) (test oljk=759) 12.9 GM/DL 12.0-15.0 HEMATOCRIT (BEAKER) (test wvnh=777) 39.0 % 36.0-45.0 MEAN CORPUSCULAR VOLUME (BEAKER) (test zeik=235) 99.6 fL 82.0-99.0 MEAN CORPUSCULAR HEMOGLOBIN (BEAKER) (test 32.9 pg 27.0-33.0 hchf=035) MEAN CORPUSCULAR HEMOGLOBIN CONC (BEAKER) (test 33.0 GM/DL 32.0-36.0 dvya=810) RED CELL DISTRIBUTION WIDTH (BEAKER) (test 12.8 % 10.3-14.2 vcqx=239) PLATELET COUNT (BEAKER) (test uzgz=346) 251 K/CU MM 150-430 MEAN PLATELET VOLUME (BEAKER) (test glcw=178) 8.1 fL 6.5-10.5 NUCLEATED RED BLOOD CELLS (BEAKER) (test 0 /100 WBC 0-0 ukkw=957) NEUTROPHILS RELATIVE PERCENT (BEAKER) (test 80 % jgks=434) LYMPHOCYTES RELATIVE PERCENT (BEAKER) (test 14 % ilrt=133) MONOCYTES RELATIVE PERCENT (BEAKER) (test 6 % zifq=673) EOSINOPHILS RELATIVE PERCENT (BEAKER) (test 0 % vdwo=828) BASOPHILS RELATIVE PERCENT (BEAKER) (test 0 % vcok=398) NEUTROPHILS ABSOLUTE COUNT (BEAKER) (test 8.55 K/ L 1.80-8.00 ngqb=911) LYMPHOCYTES ABSOLUTE COUNT (BEAKER) (test 1.46 K/ L 1.48-4.50 cghk=787) MONOCYTES ABSOLUTE COUNT (BEAKER) (test 0.60 K/ L 0.00-1.30 tpni=783) EOSINOPHILS ABSOLUTE COUNT (BEAKER) (test 0.05 K/ L 0.00-0.50 yzyv=864) BASOPHILS ABSOLUTE COUNT (BEAKER) (test 0.02 K/ L 0.00-0.20 maaw=718) 0.00(MANUAL DIFFERENTIAL)2016-06-14 07:04:00 Test Item Value Reference Range Comments TOTAL COUNTED (BEAKER) (test feru=2044) PLT MORPHOLOGY (BEAKER) (test lfwb=294) Normal RBC MORPHOLOGY (BEAKER) (test csmq=574) Normal ATYPICAL LYMPHS(BEAKER) (test kewa=8251) Present BASIC METABOLIC [id number] 05:05:00 Test Item Value Reference Range Comments SODIUM (BEAKER) (test 140 meq/L 136-145 bfnp=400) POTASSIUM (BEAKER) (test 3.8 meq/L 3.5-5.1 banc=312) CHLORIDE (BEAKER) (test 107 meq/L 98-107 tzbh=191) CO2 (BEAKER) (test 26 meq/L 22-29 aykk=429) BLOOD UREA NITROGEN 13 mg/dL 7-21 (BEAKER) (test fztl=072) CREATININE (BEAKER) (test 0.80 mg/dL 0.57-1.25 fakr=884) GLUCOSE RANDOM (BEAKER) 177 mg/dL 70-105 (test yjij=265) CALCIUM (BEAKER) (test 8.3 mg/dL 8.4-10.2 glef=581) EGFR (BEAKER) (test 86 mL/min/1.73 sq m ESTIMATED GFR IS NOT ypsa=6223) ACCURATE CREATININE CLEARANCE IN PREDICTING GLOMERULAR FILTRATION RATE. ESTIMATED GFR IS NOT APPLICABLE FOR DIALYSIS PATIENTS. [id number] 04:48:00 Test Item Value Reference Range Comments PROTIME (BEAKER) (test unzn=686) 13.0 seconds 11.7-14.7 INR (BEAKER) (test ebey=156) 1.0 <=5.9 PARTIAL THROMBOPLASTIN TIME (BEAKER) (test 31.8 seconds 22.5-36.0 gecs=440) RECOMMENDED COUMADIN/WARFARIN INR THERAPY RANGESSTANDARD DOSE: 2.0 - 3.0 Includes: PROPHYLAXIS forvenous thrombosis, systemic embolization; TREATMENT for venous thrombosis and/or pulmonary embolus.HIGH RISK: Target INR is 2.5-3.5 for patients with mechanical heart valves.POCT-GLUCOSE [id number] 22:11:00 Test Item Value Reference Range Comments POC-GLUCOSE METER (BEAKER) 200 mg/dL 70-[address] [facility] [address] [facility] (test pqho=1423) [facility] [address] POCT-GLUCOSE [id number] 17:13:00 Test Item Value Reference Range Comments POC-GLUCOSE METER (BEAKER) 225 mg/dL 70-[address] [facility] [address] [facility] (test xctr=0939) [facility] [address] POCT-GLUCOSE [id number] 12:22:00 Test Item Value Reference Range Comments POC-GLUCOSE METER (BEAKER) 309 mg/dL 70-110 Notified PAULA BERGER/TESTED AT [facility] (test syjg=0487) [address] [place] [address] URINALYSIS W/ [id number] 12:09:00 Test Item Value Reference Range Comments COLOR (BEAKER) (test ywap=927) Yellow CLARITY (BEAKER) (test dezg=413) Clear SPECIFIC GRAVITY UA (BEAKER) (test insg=137) 1.035 1.001-1.035 PH UA (BEAKER) (test zgri=296) 5.0 5.0-8.0 PROTEIN UA (BEAKER) (test oqcg=267) Negative Negative GLUCOSE UA (BEAKER) (test gccg=165) 150 mg/dL Negative KETONES UA (BEAKER) (test qdqd=912) Negative Negative BILIRUBIN UA (BEAKER) (test zsyx=350) Negative Negative BLOOD UA (BEAKER) (test uvoa=046) Small Negative NITRITE UA (BEAKER) (test ninw=557) Negative Negative LEUKOCYTE ESTERASE UA (BEAKER) (test aewa=254) Negative Negative UROBILINOGEN UA (BEAKER) (test qjkt=095) 0.2 mg/dL 0.2-1.0 RBC UA (BEAKER) (test ngqd=635) 6 /HPF WBC UA (BEAKER) (test xywp=572) 1 /HPF MUCUS (BEAKER) (test cawy=6410) Rare SQUAMOUS EPITHELIAL (BEAKER) (test diyu=448) 6 /HPF HYALINE CASTS (BEAKER) (test sthe=171) 2 /LPF SOURCE(BEAKER) (test dser=8429) POCT-GLUCOSE [id number] 07:58:00 Test Item Value Reference Range Comments POC-GLUCOSE METER (BEAKER) 236 mg/dL 70-110 TESTED AT [address] (test qtzz=4970) [facility] [address] BASIC METABOLIC [id number] 04:10:00 Test Item Value Reference Range Comments SODIUM (BEAKER) (test 138 meq/L 136-145 llnw=301) POTASSIUM (BEAKER) (test 4.2 meq/L 3.5-5.1 xxqz=441) CHLORIDE (BEAKER) (test 107 meq/L 98-107 wnwf=758) CO2 (BEAKER) (test 22 meq/L 22-29 cnjs=893) BLOOD UREA NITROGEN 20 mg/dL 7-21 (BEAKER) (test veey=281) CREATININE (BEAKER) (test 1.00 mg/dL 0.57-1.25 nqfz=179) GLUCOSE RANDOM (BEAKER) 246 mg/dL 70-105 (test mekv=631) CALCIUM (BEAKER) (test 8.8 mg/dL 8.4-10.2 lqbj=387) EGFR (BEAKER) (test 67 mL/min/1.73 sq m ESTIMATED GFR IS NOT wqfs=0097) ACCURATE CREATININE CLEARANCE IN PREDICTING GLOMERULAR FILTRATION RATE. ESTIMATED GFR IS NOT APPLICABLE FOR DIALYSIS PATIENTS. [id number] 04:03:00 Test Item Value Reference Range Comments PROTIME (BEAKER) (test ofxn=919) 12.8 seconds 11.7-14.7 INR (BEAKER) (test ujll=018) 1.0 <=5.9 PARTIAL THROMBOPLASTIN TIME (BEAKER) (test 29.6 seconds 22.5-36.0 qibu=822) RECOMMENDED COUMADIN/WARFARIN INR THERAPY RANGESSTANDARD DOSE: 2.0 - 3.0 Includes: PROPHYLAXIS forvenous thrombosis, systemic embolization; TREATMENT for venous thrombosis and/or pulmonary embolus.HIGH RISK: Target INR is 2.5-3.5 for patients with mechanical heart valves.CBC WITH PLATELET COUNT + MANUAL [id number] 03:58:00 Test Item Value Reference Range Comments WHITE BLOOD CELL COUNT (BEAKER) (test kcog=771) 14.3 K/ L 4.0-10.0 RED BLOOD CELL COUNT (BEAKER) (test kvly=288) 4.03 M/ L 4.00-5.00 HEMOGLOBIN (BEAKER) (test dqoh=843) 13.1 GM/DL 12.0-15.0 HEMATOCRIT (BEAKER) (test pfcl=500) 39.7 % 36.0-45.0 MEAN CORPUSCULAR VOLUME (BEAKER) (test bibb=241) 98.5 fL 82.0-99.0 MEAN CORPUSCULAR HEMOGLOBIN (BEAKER) (test 32.6 pg 27.0-33.0 oajr=838) MEAN CORPUSCULAR HEMOGLOBIN CONC (BEAKER) (test 33.1 GM/DL 32.0-36.0 coxv=750) RED CELL DISTRIBUTION WIDTH (BEAKER) (test 12.9 % 10.3-14.2 udsr=697) PLATELET COUNT (BEAKER) (test feox=071) 271 K/CU MM 150-430 MEAN PLATELET VOLUME (BEAKER) (test wfvt=622) 7.7 fL 6.5-10.5 NUCLEATED RED BLOOD CELLS (BEAKER) (test 0 /100 WBC 0-0 hmln=874) NEUTROPHILS RELATIVE PERCENT (BEAKER) (test 87 % fvse=826) LYMPHOCYTES RELATIVE PERCENT (BEAKER) (test 7 % zbwj=102) MONOCYTES RELATIVE PERCENT (BEAKER) (test 6 % dnqp=391) EOSINOPHILS RELATIVE PERCENT (BEAKER) (test 0 % alrl=010) BASOPHILS RELATIVE PERCENT (BEAKER) (test 0 % qoxf=766) NEUTROPHILS ABSOLUTE COUNT (BEAKER) (test 12.40 K/ L 1.80-8.00 ljtl=129) LYMPHOCYTES ABSOLUTE COUNT (BEAKER) (test 1.06 K/ L 1.48-4.50 scou=168) MONOCYTES ABSOLUTE COUNT (BEAKER) (test 0.81 K/ L 0.00-1.30 jxdc=672) EOSINOPHILS ABSOLUTE COUNT (BEAKER) (test 0.01 K/ L 0.00-0.50 dfco=023) BASOPHILS ABSOLUTE COUNT (BEAKER) (test 0.03 K/ L 0.00-0.20 rtqm=352) [id number]-GLUCOSE [id number] 22:17:00 Test Item Value Reference Range Comments POC-GLUCOSE METER (BEAKER) 260 mg/dL 70-110 TESTED AT [address] (test xawj=8873) [facility] [address] POCT-GLUCOSE [id number] 12:11:00 Test Item Value Reference Range Comments POC-GLUCOSE METER (BEAKER) 278 mg/dL 70-110 TESTED AT [address] (test raxe=7018) [facility] [address] HEMOGLOBIN [id number] 10:46:00 Test Item Value Reference Range Comments HEMOGLOBIN A1C (BEAKER) (test aepp=228) 9.7 % 4.3-6.1 DC\S\Delta Check\S\NONEPOCT-GLUCOSE [id number] 07:15:00 Test Item Value Reference Range Comments POC-GLUCOSE METER (BEAKER) 283 mg/dL 70-[address] [facility] [address] (test pdlf=5417) [facility] [address] BASIC METABOLIC [id number] 04:43:00 Test Item Value Reference Range Comments SODIUM (BEAKER) (test 136 meq/L 136-145 rukg=765) POTASSIUM (BEAKER) (test 4.0 meq/L 3.5-5.1 wiyr=107) CHLORIDE (BEAKER) (test 102 meq/L 98-107 knvw=849) CO2 (BEAKER) (test 27 meq/L 22-29 vgpt=584) BLOOD UREA NITROGEN 18 mg/dL 7-21 (BEAKER) (test mqza=691) CREATININE (BEAKER) (test 0.95 mg/dL 0.57-1.25 wcvl=898) GLUCOSE RANDOM (BEAKER) 256 mg/dL 70-105 (test xhbf=039) CALCIUM (BEAKER) (test 9.0 mg/dL 8.4-10.2 rcvo=427) EGFR (BEAKER) (test 71 mL/min/1.73 sq m ESTIMATED GFR IS NOT ztxj=8315) ACCURATE CREATININE CLEARANCE IN PREDICTING GLOMERULAR FILTRATION RATE. ESTIMATED GFR IS NOT APPLICABLE FOR DIALYSIS PATIENTS. CBC WITH PLATELET COUNT + MANUAL [id number] 04:28:00 Test Item Value Reference Range Comments WHITE BLOOD CELL COUNT (BEAKER) (test tukx=708) 11.6 K/ L 4.0-10.0 RED BLOOD CELL COUNT (BEAKER) (test zrby=294) 4.15 M/ L 4.00-5.00 HEMOGLOBIN (BEAKER) (test mgxm=856) 13.3 GM/DL 12.0-15.0 HEMATOCRIT (BEAKER) (test sttx=362) 40.5 % 36.0-45.0 MEAN CORPUSCULAR VOLUME (BEAKER) (test qasl=000) 97.6 fL 82.0-99.0 MEAN CORPUSCULAR HEMOGLOBIN (BEAKER) (test 32.1 pg 27.0-33.0 wkyy=812) MEAN CORPUSCULAR HEMOGLOBIN CONC (BEAKER) (test 32.9 GM/DL 32.0-36.0 lcjd=562) RED CELL DISTRIBUTION WIDTH (BEAKER) (test 12.7 % 10.3-14.2 tnnq=355) PLATELET COUNT (BEAKER) (test ityq=762) 263 K/CU MM 150-430 MEAN PLATELET VOLUME (BEAKER) (test wvfz=390) 8.2 fL 6.5-10.5 NUCLEATED RED BLOOD CELLS (BEAKER) (test 0 /100 WBC 0-0 vzpj=917) NEUTROPHILS RELATIVE PERCENT (BEAKER) (test 90 % lyrq=347) LYMPHOCYTES RELATIVE PERCENT (BEAKER) (test 8 % aqjl=722) MONOCYTES RELATIVE PERCENT (BEAKER) (test 2 % fgja=502) EOSINOPHILS RELATIVE PERCENT (BEAKER) (test 0 % qxne=926) BASOPHILS RELATIVE PERCENT (BEAKER) (test 0 % rfsg=332) NEUTROPHILS ABSOLUTE COUNT (BEAKER) (test 10.40 K/ L 1.80-8.00 htic=917) LYMPHOCYTES ABSOLUTE COUNT (BEAKER) (test 0.95 K/ L 1.48-4.50 gtnj=400) MONOCYTES ABSOLUTE COUNT (BEAKER) (test 0.20 K/ L 0.00-1.30 dzmh=220) EOSINOPHILS ABSOLUTE COUNT (BEAKER) (test 0.02 K/ L 0.00-0.50 iypn=079) BASOPHILS ABSOLUTE COUNT (BEAKER) (test 0.02 K/ L 0.00-0.20 hoby=279) 0.00PT/[id number] 04:25:00 Test Item Value Reference Range Comments PROTIME (BEAKER) (test wmme=868) 13.7 seconds 11.7-14.7 INR (BEAKER) (test thvt=573) 1.1 <=5.9 PARTIAL THROMBOPLASTIN TIME (BEAKER) (test 32.8 seconds 22.5-36.0 nive=134) RECOMMENDED COUMADIN/WARFARIN INR THERAPY RANGESSTANDARD DOSE: 2.0 - 3.0 Includes: PROPHYLAXIS forvenous thrombosis, systemic embolization; TREATMENT for venous thrombosis and/or pulmonary embolus.HIGH RISK: Target INR is 2.5-3.5 for patients with mechanical heart valves.POCT-GLUCOSE [id number] 02:47:00 Test Item Value Reference Range Comments POC-GLUCOSE METER (BEAKER) 278 mg/dL 70-[address] [facility] [address] [facility] (test gaad=[id number]) [facility] [address] POCT-GLUCOSE [id number] 22:12:00 Test Item Value Reference Range Comments POC-GLUCOSE METER (BEAKER) 258 mg/dL 70-[address] [facility] [address] (test qymc=3877) [facility] [address] [id number] 15:44:00 Test Item Value Reference Range Comments MAGNESIUM (BEAKER) (test 2.1 mg/dL 1.6-2.6 Specimen slightly hemolyzed ltis=438) [id number] 15:44:00 Test Item Value Reference Range Comments PHOSPHORUS (BEAKER) (test 2.9 mg/dL 2.3-4.7 Specimen slightly hemolyzed ukhk=817) BASIC METABOLIC [id number] 15:44:00 Test Item Value Reference Range Comments SODIUM (BEAKER) (test 137 meq/L 136-145 bnxo=366) POTASSIUM (BEAKER) (test 4.4 meq/L 3.5-5.1 Specimen slightly mnkz=315) hemolyzed CHLORIDE (BEAKER) (test 99 meq/L 98-107 sdne=404) CO2 (BEAKER) (test 27 meq/L 22-29 hoyh=692) BLOOD UREA NITROGEN 13 mg/dL 7-21 (BEAKER) (test ojkj=447) CREATININE (BEAKER) (test 0.96 mg/dL 0.57-1.25 Specimen slightly rhxs=084) hemolyzed GLUCOSE RANDOM (BEAKER) 250 mg/dL 70-105 (test nime=645) CALCIUM (BEAKER) (test 9.6 mg/dL 8.4-10.2 hbnq=428) EGFR (BEAKER) (test 70 mL/min/1.73 sq m ESTIMATED GFR IS NOT lusf=7145) ACCURATE CREATININE CLEARANCE IN PREDICTING GLOMERULAR FILTRATION RATE. ESTIMATED GFR IS NOT APPLICABLE FOR DIALYSIS PATIENTS. CBC WITH PLATELET COUNT + MANUAL [id number] 15:39:00 Test Item Value Reference Range Comments WHITE BLOOD CELL COUNT (BEAKER) (test tvsz=669) 9.5 K/ L 4.0-10.0 RED BLOOD CELL COUNT (BEAKER) (test axzn=543) 4.18 M/ L 4.00-5.00 HEMOGLOBIN (BEAKER) (test omom=734) 14.0 GM/DL 12.0-15.0 HEMATOCRIT (BEAKER) (test svfo=269) 40.7 % 36.0-45.0 MEAN CORPUSCULAR VOLUME (BEAKER) (test fwqv=614) 97.3 fL 82.0-99.0 MEAN CORPUSCULAR HEMOGLOBIN (BEAKER) (test 33.4 pg 27.0-33.0 akam=552) MEAN CORPUSCULAR HEMOGLOBIN CONC (BEAKER) (test 34.3 GM/DL 32.0-36.0 fybh=252) RED CELL DISTRIBUTION WIDTH (BEAKER) (test 12.6 % 10.3-14.2 zhha=369) PLATELET COUNT (BEAKER) (test nwoi=064) 253 K/CU MM 150-430 MEAN PLATELET VOLUME (BEAKER) (test rxel=716) 8.1 fL 6.5-10.5 NUCLEATED RED BLOOD CELLS (BEAKER) (test 0 /100 WBC 0-0 tqby=451) NEUTROPHILS RELATIVE PERCENT (BEAKER) (test 91 % enor=917) LYMPHOCYTES RELATIVE PERCENT (BEAKER) (test 8 % wtua=236) MONOCYTES RELATIVE PERCENT (BEAKER) (test 1 % hxhi=846) EOSINOPHILS RELATIVE PERCENT (BEAKER) (test 0 % zllc=184) BASOPHILS RELATIVE PERCENT (BEAKER) (test 0 % pgob=199) NEUTROPHILS ABSOLUTE COUNT (BEAKER) (test 8.66 K/ L 1.80-8.00 lymp=372) LYMPHOCYTES ABSOLUTE COUNT (BEAKER) (test 0.78 K/ L 1.48-4.50 gebq=089) MONOCYTES ABSOLUTE COUNT (BEAKER) (test 0.07 K/ L 0.00-1.30 ywvt=024) EOSINOPHILS ABSOLUTE COUNT (BEAKER) (test 0.01 K/ L 0.00-0.50 oppc=641) BASOPHILS ABSOLUTE COUNT (BEAKER) (test 0.01 K/ L 0.00-0.20 pjni=924) [id number] 15:39:00 Test Item Value Reference Range Comments PROTIME (BEAKER) (test wudp=607) 12.7 seconds 11.7-14.7 INR (BEAKER) (test wzlo=248) 1.0 <=5.9 PARTIAL THROMBOPLASTIN TIME (BEAKER) (test 32.8 seconds 22.5-36.0 snul=387) RECOMMENDED COUMADIN/WARFARIN INR THERAPY RANGESSTANDARD DOSE: 2.0 - 3.0 Includes: PROPHYLAXIS forvenous thrombosis, systemic embolization; TREATMENT for venous thrombosis and/or pulmonary embolus.HIGH RISK: Target INR is 2.5-3.5 for patients with mechanical heart valves.
[2018-02-11] MEDS ORDERED: IPRATROPIUM BROM 0.5MG/2.5ML ONE ×2 (06:49→07:06)
[2018-02-11] MEDS ORDERED: METHYLPREDNISOLONE 125 MG INJ ONE ×2 (06:49→07:06)
[2018-02-11 06:56] LABS: Arterial Blood Carboxyhemoglob 1.7 % (0-1.5); Blood O2 Saturation 99.8 % (92-98.5)
[2018-02-11] MEDS ORDERED: ALBUTEROL 2.5 MG/3 ML NEB SOL ONE (07:06)
[2018-02-11 07:08] LABS: Absolute Lymphocytes (CBC) 0.8 K/uL (0.7-4.9); Absolute Monocytes 0.4 K/uL (0.1-1.3); Absolute Neutrophil 7.8 K/uL (1.8-8.0); Eosinophils % 1.2 % (0-4.4); Hematocrit 27.9 % (36.0-45.0); Lymphocytes % 8.3 % (15.3-44.8); MCH 32.2 pg (27.0-35.0); MCV 99.3 fL (80-100); MPV 8.3 fL (7.6-11.3); Monocytes % 4.3 % (3.3-12.3); RBC Red Blood Cell Count 2.81 M/uL (3.86-4.86)
[2018-02-11 07:14] LABS: Protime INR 1.07
[2018-02-11 07:31] LABS: ALT/SGPT 40 U/L (12-78); AST/SGOT 34 U/L (15-37); Albumin 3.4 g/dL (3.4-5.0); Alkaline Phosphatase 114 U/L (45-117); BUN Blood Urea Nitrogen 22 mg/dL (7-18); Bicarbonate 31 mmol/L (21-32); Bilirubin Direct 0.2 mg/dL (0-0.2); Bilirubin Total 0.4 mg/dL (0.2-1.0); Glucose Level 186 mg/dL (74-106); Magnesium 2.3 mg/dL (1.8-2.4); NT PRO-BNP 23163 pg/mL (<125); Potassium 4.7 mmol/L (3.5-5.1); Protein, Total 7.4 g/dL (6.4-8.2); Sodium Level 145 mmol/L (136-145); Troponin (Emerg Dept Use Only) < 0.02 ng/mL (0.0-0.045)
[2018-02-11] MEDS ORDERED: ONDANSETRON 4 MG/2 ML VIAL IV PRN (08:05)
[2018-02-11] MEDS ORDERED: ACETAMINOPHEN 500 MG TAB PO PRN (08:05)
--- NOTE | 2018-02-11 08:11 | ER ---
Nurse's Notes [facility] Name: Christa Ayala Age: 72 yrs Sex: Female : 1945 Arrival Date: 02/11/2018 Time: 06:42 Bed 4 Private MD: Diagnosis: Acute and chronic respiratory failure with hypoxia;Chronic obstructive pulmonary disease with (acute) exacerbation;Acute systolic (congestive) heart failure Presentation: 02/11 06:46 Presenting complaint: EMS states: Pt woke up with shortness of breath and difficulty tl2 breathing approx 1 hour ago. 80% on RA and placed on NRB, O2 sat increased to 98%. Pt AOx3, able to answer questions in short sentences. Transition of care: patient was not received from another setting of care. Onset of symptoms was February 11, 2018 at 05:40. Risk Assessment: Do you want to hurt yourself or someone else? Patient reports no desire to harm self or others. Initial Sepsis Screen: Does the patient meet any 2 criteria? No. Patient's initial sepsis screen is negative. Does the patient have a suspected source of infection? No. Patient's initial sepsis screen is negative. Care prior to arrival: Oxygen administered. via a non-rebreather mask. 06:46 Method Of Arrival: EMS: [facility] tl2 06:46 Acuity: SONYA 2 tl2 Triage Assessment: 06:49 General: Appears in no apparent distress. uncomfortable, Behavior is calm, cooperative, tl2 appropriate for age. Pain: Denies pain. Neuro: Level of Consciousness is awake, alert, obeys commands, Oriented to person, place, time, situation. Cardiovascular: Denies chest pain. Respiratory: Reports shortness of breath at rest labored breathing Airway is patent Respiratory effort is even, labored, Respiratory pattern is symmetrical, tachypnea Breath sounds are diminished bilaterally. Breath sounds with wheezes bilaterally. Onset: The symptoms/episode began/occurred this morning, the patient has moderate shortness of breath. GI: No signs and/or symptoms were reported involving the gastrointestinal system. Derm: Skin is pale. Historical: - Allergies: 06:49 Codeine; tl2 06:49 Iodine; tl2 - PMHx: 06:49 CHF; COPD; Diabetes - NIDDM; Emphysema; enlarged aorta; Hypertension; Myocardial tl2 infarction; - Immunization history:: Adult Immunizations up to date. - Social history:: Smoking status: Patient/guardian denies using tobacco. - Ebola Screening: : No symptoms or risks identified at this time. Screenin:52 Abuse screen: Denies threats or abuse. Nutritional screening: No deficits noted. tl2 Tuberculosis screening: No symptoms or risk factors identified. Fall Risk IV access (20 points). Assessment: 06:52 Respiratory: Respiratory effort is. tl2 06:53 Cardiovascular: Rhythm is sinus rhythm. tl2 06:53 General: Appears in no apparent distress. ill, Behavior is calm, cooperative, rr5 appropriate for age. Pain: Denies pain. Neuro: Level of Consciousness is awake, alert, obeys commands, Oriented to person, place, time, situation. Cardiovascular: Reports shortness of breath, Capillary refill < 3 seconds. Cardiovascular: Rhythm is sinus rhythm. Respiratory: Airway is patent Respiratory effort is shallow, Respiratory pattern is symmetrical. GI: Abdomen is round. : No signs and/or symptoms were reported regarding the genitourinary system. EENT: No signs and/or symptoms were reported regarding the EENT system. Derm: No signs and/or symptoms reported regarding the dermatologic system. Skin is intact, Skin is clammy, Skin is black. Musculoskeletal: No signs and/or symptoms reported regarding the musculoskeletal system. 08:00 Reassessment: Patient and/or family updated on plan of care and expected duration. Pain jl7 level reassessed. Patient is alert, oriented x 3, equal unlabored respirations, skin warm/dry/pink. Respiratory: Airway is patent Respiratory effort is even, labored, shallow, Respiratory pattern is regular, symmetrical. 08:38 Reassessment: Pt cleaned with Chloraprep instead of Iodine for Carty insertion d/t jl7 iodine allergy. 09:05 Reassessment: Patient appears in no apparent distress at this time. No changes from jl7 previously documented assessment. Patient and/or family updated on plan of care and expected duration. Pain level reassessed. Patient is alert, oriented x 3, equal unlabored respirations, skin warm/dry/pink. Vital Signs: 06:49 BP 150 / 105; Pulse 96; Resp 30; Pulse Ox 80% on R/A; Weight 79.38 kg; Height 5 ft. 6 tl2 in. (167.64 cm); Pain 0/10; 07:35 BP 130 / 103; Pulse 93; Resp 17; Temp 97.8(R); Pulse Ox 100% on BiPAP; jl7 08:00 BP 132 / 89; Pulse 88; Resp 17 S; Pulse Ox 99% on BiPAP; jl7 09:03 BP 129 / 89; Pulse 93; Resp 18; Pulse Ox 99% on BiPAP; jl7 06:49 Body Mass Index 28.25 (79.38 kg, 167.64 cm) tl2 ED Course: 06:42 Patient arrived in ED. jr8 06:42 Wily Bravo PA is PHCP. jr8 06:42 Jameel Nath MD is Attending Physician. jr8 06:48 Triage completed. tl2 06:49 Arm band placed on right wrist. tl2 06:51 Inserted saline lock: 20 gauge in right antecubital area, using aseptic technique. tl2 Blood collected. placed by PAULA Bower. 06:53 Patient has correct armband on for positive identification. Bed in low position. Call tl2 light in reach. Side rails up X2. 07:06 Tyron Gonzalez, PAULA is Primary Nurse. sg 07:19 XRAY Chest (1 view) In Process Unspecified. EDMS 08:08 Gonzalo Gates DO is Hospitalizing Provider. jr8 08:38 Carty cath inserted, using sterile technique, 16 Fr., by la, balloon inflated, to jl7 gravity drainage, urine specimen collected. returned cloudy urine. Patient tolerated well. 09:18 No provider procedures requiring assistance completed. Patient admitted, IV remains in jl7 place. intact, No redness/swelling at site. Administered Medications: 06:57 Drug: Albuterol - atroVENT (3:1) (2.5 mg - 0.5 mg) 3 ml Route: Nebulizer; tl2 09:05 Follow up: Response: No adverse reaction jl7 06:57 Drug: SOLU-Medrol 125 mg Route: IVP; Site: right antecubital; tl2 07:30 Follow up: Response: No adverse reaction jl7 08:38 Drug: Lasix 40 mg Route: IVP; Site: right antecubital; jl7 09:06 Follow up: Response: No adverse reaction jl7 Outcome: 08:10 Decision to Hospitalize by Provider. jr8 09:18 Admitted to Tele accompanied by tech, family with patient, via stretcher, room 412, jl7 with oxygen, with chart, Report called to PAULA Garcia 09:18 Condition: stable 09:18 Discharge instructions given to patient, family, Instructed on the need for admit, Demonstrated understanding of instructions. 09:30 Patient left the ED. jl7 Signatures: Dispatcher [employer] EDMS Tyron Gonzalez RN RN Wily Bravo PA PA jr8 Richa Fong RN RN tl2 Calvin Gill RN RN jl7 Sathish Ewing RN RN rr5 Corrections: (The following items were deleted from the chart) 06:53 06:49 Respiratory: Reports shortness of breath at rest labored breathing Breath sounds tl2 are diminished bilaterally. Breath sounds with wheezes bilaterally. Onset: The symptoms/episode began/occurred this morning, the patient has moderate shortness of breath tl2
--- NOTE | 2018-02-11 08:11 | EDPHYS ---
Physician Documentation [facility] Name: Christa Ayala Age: 72 yrs Sex: Female : 1945 Arrival Date: 02/11/2018 Time: 06:42 Bed 4 Private MD: ED Physician Jameel Nath HPI: 02/11 07:36 This 72 yrs old Black Female presents to ER via EMS with complaints of Shortness Of jr8 Breath. 07:36 The patient has shortness of breath at rest. Onset: The symptoms/episode began/occurred jr8 acutely, today. Duration: The symptoms are continuous. The patient's shortness of breath is aggravated by talking. Associated signs and symptoms: The patient has no apparent associated signs or symptoms. Severity of symptoms: At their worst the symptoms were moderate in the emergency department the symptoms are unchanged. It is unknown whether or not the patient has had similar symptoms in the past. The patient has not recently seen a physician. Patient stated that she has shortness of breath last night that worsened through this morning. EMS called for cute dyspnea. Patient 78% RA. Historical: - Allergies: 06:49 Codeine; tl2 06:49 Iodine; tl2 - PMHx: 06:49 CHF; COPD; Diabetes - NIDDM; Emphysema; enlarged aorta; Hypertension; Myocardial tl2 infarction; - Immunization history:: Adult Immunizations up to date. - Social history:: Smoking status: Patient/guardian denies using tobacco. - Ebola Screening: : No symptoms or risks identified at this time. ROS: 07:36 Eyes: Negative for injury, pain, redness, and discharge, ENT: Negative for injury, jr8 pain, and discharge, Neck: Negative for injury, pain, and swelling, Cardiovascular: Negative for chest pain, palpitations, and edema, Abdomen/GI: Negative for abdominal pain, nausea, vomiting, diarrhea, and constipation, Back: Negative for injury and pain, MS/Extremity: Negative for injury and deformity, Skin: Negative for injury, rash, and discoloration, Neuro: Negative for headache, weakness, numbness, tingling, and seizure. 07:36 Respiratory: Positive for cough, dyspnea on exertion, orthopnea, shortness of breath. Exam: 07:36 Eyes: Pupils equal round and reactive to light, extra-ocular motions intact. Lids and jr8 lashes normal. Conjunctiva pale. Sclera are non-icteric and not injected. Cornea within normal limits. Periorbital areas with no swelling, redness, or edema. ENT: Nares patent. No nasal discharge, no septal abnormalities noted. Tympanic membranes are normal and external auditory canals are clear. Oropharynx with no redness, swelling, or masses, exudates, or evidence of obstruction, uvula midline. Mucous membranes moist. Neck: Trachea midline, no thyromegaly or masses palpated, and no cervical lymphadenopathy. Supple, full range of motion without nuchal rigidity, or vertebral point tenderness. No Meningismus. Cardiovascular: Regular rate and rhythm with a normal S1 and S2. No gallops, murmurs, or rubs. Normal PMI, no JVD. No pulse deficits. Abdomen/GI: Soft, non-tender, with normal bowel sounds. No distension or tympany. No guarding or rebound. No evidence of tenderness throughout. Back: No spinal tenderness. No costovertebral tenderness. Full range of motion. Skin: Warm, dry with normal turgor. Normal color with no rashes, no lesions, and no evidence of cellulitis. MS/ Extremity: Pulses equal, no cyanosis. Neurovascular intact. Full, normal range of motion. Neuro: Awake and alert, GCS 15, oriented to person, place, time, and situation. Cranial nerves II-XII grossly intact. Motor strength 5/5 in all extremities. Sensory grossly intact. Cerebellar exam normal. Normal gait. 07:36 Respiratory: moderate respiratory distress is noted, Respirations: labored breathing, tachypnea, Breath sounds: decreased breath sounds, are scattered, wheezing: is heard diffusely. Vital Signs: 06:49 BP 150 / 105; Pulse 96; Resp 30; Pulse Ox 80% on R/A; Weight 79.38 kg; Height 5 ft. 6 tl2 in. (167.64 cm); Pain 0/10; 07:35 BP 130 / 103; Pulse 93; Resp 17; Temp 97.8(R); Pulse Ox 100% on BiPAP; jl7 08:00 BP 132 / 89; Pulse 88; Resp 17 S; Pulse Ox 99% on BiPAP; jl7 09:03 BP 129 / 89; Pulse 93; Resp 18; Pulse Ox 99% on BiPAP; jl7 06:49 Body Mass Index 28.25 (79.38 kg, 167.64 cm) tl2 MDM: 06:42 Patient medically screened. [facility] 07:36 Data reviewed: vital signs, nurses notes, lab test result(s), EKG, radiologic studies, [facility] plain films. Data interpreted: Pulse oximetry: on room air is 78 %. Interpretation: hypoxia. Counseling: I had a detailed discussion with the patient and/or guardian regarding: the historical points, exam findings, and any diagnostic results supporting the discharge/admit diagnosis, lab results, radiology results, the need for further work-up and treatment in the hospital. 08:08 Physician consultation: Gonzalo Gates DO was called at 08:08, was contacted at 08:08, jr8 regarding admission, to the telemetry unit. and will see patient in ED, in the emergency department to see patient at 08:08. 02/11 06:43 Order name: Basic Metabolic Panel; Complete Time: 07:45 [facility] 02/11 06:43 Order name: CBC with Diff; Complete Time: 07:45 [facility] 02/11 06:43 Order name: LFT's; Complete Time: 07:45 [facility] 02/11 06:43 Order name: Magnesium; Complete Time: 07:45 [facility] 02/11 06:43 Order name: NT PRO-BNP; Complete Time: 07:45 [facility] 02/11 06:43 Order name: PT-INR; Complete Time: 07:45 [facility] 02/11 06:43 Order name: Troponin (emerg Dept Use Only); Complete Time: 07:45 [facility] 02/11 06:43 Order name: ABG; Complete Time: 07:45 [facility] 02/11 08:13 Order name: Strep [facility] 02/11 08:13 Order name: Influenza Screen (a \T\ B) [facility] 02/11 08:14 Order name: Basic Metabolic Panel [facility] 02/11 08:14 Order name: Basic Metabolic Panel [facility] 02/11 08:14 Order name: Basic Metabolic Panel [facility] 02/11 08:14 Order name: Basic Metabolic Panel [facility] 02/11 06:43 Order name: XRAY Chest (1 view) [facility] 02/11 06:43 Order name: BIPAP [facility] 02/11 08:14 Order name: CKMB Creatine Kinase MB [facility] 02/11 08:14 Order name: CKMB Creatine Kinase MB [facility] 02/11 08:14 Order name: CKMB Creatine Kinase MB [facility] 02/11 08:14 Order name: Creatine Phosphokinase [facility] 02/11 08:14 Order name: Influenza Screen (A [facility] 02/11 08:15 Order name: Procalcitonin [facility] 02/11 08:15 Order name: Creatine Phosphokinase [facility] 02/11 08:15 Order name: Creatine Phosphokinase [facility] 02/11 08:15 Order name: Troponin I [facility] 02/11 08:15 Order name: Troponin I [facility] 02/11 08:16 Order name: Chest Single View [facility] 02/11 08:16 Order name: Chest Single View [facility] 02/11 08:40 Order name: Urine Dipstick--Ancillary (enter results) 02/11 09:13 Order name: Urine Dipstick-Ancillary; Complete Time: 09:24 [facility] 02/11 06:43 Order name: EKG; Complete Time: 06:44 [facility] 02/11 06:43 Order name: Cardiac monitoring; Complete Time: 06:53 [facility] 02/11 06:43 Order name: EKG - Nurse/Tech; Complete Time: 06:57 [facility] 02/11 06:43 Order name: IV Saline Lock; Complete Time: 06:53 [facility] 02/11 06:43 Order name: Labs collected and sent; Complete Time: 06:53 [facility] 02/11 06:43 Order name: O2 Per Protocol; Complete Time: 06:53 [facility] 02/11 06:43 Order name: O2 Sat Monitoring; Complete Time: 06:54 [facility] 02/11 08:11 Order name: Machelle; Complete Time: 08:38 [facility] 02/11 08:15 Order name: CONS Physician Consult [facility] 02/11 08:15 Order name: CONS Physician Consult [facility] 02/11 08:15 Order name: Respiratory Therapy Consult [facility] 02/11 08:15 Order name: Renal [facility] Administered Medications: 06:57 Drug: Albuterol - atroVENT (3:1) (2.5 mg - 0.5 mg) 3 ml Route: Nebulizer; tl2 09:05 Follow up: Response: No adverse reaction 7 06:57 Drug: SOLU-Medrol 125 mg Route: IVP; Site: right antecubital; tl2 07:30 Follow up: Response: No adverse reaction jl7 08:38 Drug: Lasix 40 mg Route: IVP; Site: right antecubital; 7 09:06 Follow up: Response: No adverse reaction jl7 Disposition: 02/11/18 08:10 Hospitalization ordered by Gonzalo Gates for Inpatient Admission. Preliminary diagnosis are Acute and chronic respiratory failure with hypoxia, Chronic obstructive pulmonary disease with (acute) exacerbation, Acute systolic (congestive) heart failure. - Bed requested for Telemetry/MedSurg (Inpatient). - Status is Inpatient Admission. jl7 - Condition is Stable. - Problem is new. - Symptoms have improved. UTI on Admission? No Addendum: 02/13/2018 07:07 Co-signature as Attending Physician, Jameel Nath MD I agree with the assessment and w a plan of care. Signatures: Dispatcher [employer] EDMS Wily Bravo PA PA jr8 Richa Fong RN RN tl2 Calvin Gill RN RN jl7 Jameel Nath MD MD wa Botello, Elizabeth eb Corrections: (The following items were deleted from the chart) 02/11 08:57 08:10 Hospitalization Ordered by Gonzalo Gates DO for Inpatient Admission. Preliminary eb diagnosis is Acute and chronic respiratory failure with hypoxia; Chronic obstructive pulmonary disease with (acute) exacerbation; Acute systolic (congestive) heart failure. Bed requested for Telemetry/MedSurg (Inpatient). Status is Inpatient Admission. Condition is Stable. Problem is new. Symptoms have improved. UTI on Admission? No. jr8 09:30 08:57 02/11/2018 08:10 Hospitalization Ordered by Gonzalo Gates DO for Inpatient [facility] Admission. Preliminary diagnosis is Acute and chronic respiratory failure with hypoxia; Chronic obstructive pulmonary disease with (acute) exacerbation; Acute systolic (congestive) heart failure. Bed requested for Telemetry/MedSurg (Inpatient). Status is Inpatient Admission. Condition is Stable. Problem is new. Symptoms have improved. UTI on Admission? No. eb
[2018-02-11] MEDS ORDERED: FUROSEMIDE 40 MG/4 ML VIAL ONE (08:20)
[2018-02-11] MEDS ORDERED: CITALOPRAM 10 MG TABLET PO SCH (09:00)
[2018-02-11] MEDS: FUROSEMIDE 20 MG/ 2ML VIAL IV SCH ×2 (09:00→16:54)
[2018-02-11 09:13] LABS: Urine Blood TRACE (NEG); Urine Glucose NEGATIVE (NEG); Urine Protein 2+ (NEG); Urine Specific Gravity 1.025 (1.005-1.030)
--- NOTE | 2018-02-11 10:50 | RAD REPORT ---
EXAM DESCRIPTION: Angy Single View02/11/2018 7:19 am CLINICAL HISTORY: Shortness of breath COMPARISON: February 08, 2018 FINDINGS: Small to moderate bilateral pleural effusions are unchanged. Right basilar atelectasis. Heart is moderately enlarged. Dilatation of the aorta is unchanged
[2018-02-11] MEDS: INSULIN -REGULAR HUMAN 50 UNIT/0.5 ML ML SQ SCH ×3 (11:22→21:52)
[2018-02-11] MEDS: CLOPIDOGREL 75 MG TABLET PO SCH (11:23)
[2018-02-11] MEDS: ASPIRIN EC 81 MG TAB PO SCH (11:24)
[2018-02-11] MEDS: METOPROLOL XL 25 MG TAB PO SCH ×2 (11:24→21:00)
[2018-02-11] MEDS: ENOXAPARIN 30 MG/0.3 ML SQ SCH (11:25)
[2018-02-11] MEDS: SACUBITRIL/VALSARTAN 24/26 MG TAB PO SCH ×2 (11:32→21:49)
[2018-02-11] MEDS ORDERED: INFLUENZA VACCINE (for 3y+) 0.5 ML DOSE IMVAC ONE (12:00)
--- NOTE | 2018-02-11 12:04 | P.HP ---
Certification for Inpatient Patient admitted to: Inpatient With expected LOS: >2 Midnights Patient will require the following post-hospital care: None Practitioner: I am a practitioner with admitting privileges, knowledge of patient current condition, hospital course, and medical plan of care. Services: Services provided to patient in accordance with Admission requirements found in Title 42 Section 412.3 of the Code of Federal Regulations Patient History Date of Service: 02/11/18 Primary Care Provider: Dr. Stevens; Pulmonary-Dr. Webb; Cardiology-Dr. Hook Reason for admission: Shortness of breath History of Present Illness: 72-year-old female presented to the emergency room with increasing shortness of breath. Patient has reported increasing shortness of breath over the last several days. Yesterday got worse. This morning she could hardly breathe. Patient with multiple medical problems including systolic CHF, hyperlipidemia, CAD, thoracic aortic aneurysm, COPD and depression. Patient is seen by Dr. Stevens. I am covering for him this weekend. Patient seen in the emergency room. Patient in respiratory distress. Patient required BiPAP. Initial ABG showed a pH is 7.29 with a pC02 of 58. White count 9.1, hemoglobin 9.1. Sodium 145, potassium 4.7. BUN of 22, creatinine 2.1 with a GFR 28. Glucose 186. Chest x-ray showed bilateral pleural effusion with right basilar atelectasis. Recent CT scan reviewed shows thoracic aortic aneurysm showing evidence and enlargement since April 2017. No acute aortic leakage suspected. Weakening of right lateral aortic wall noted. Patient was stabilize in the emergency room. Patient admitted for further evaluation. When I saw the patient ER, she appeared much improved. Patient on BiPAP. Daughter at bedside. Patient seen by thoracic surgery Dr. Skinner in [place]. Allergies iodine Allergy (Mild, Verified 04/23/17 10:11) Itching/Hives/Rash codeine Adverse Reaction (Intermediate, Verified 04/23/17 10:11) Hives/Rash Home medications list reviewed: Yes Home Medications: Clopidogrel Bisulfate [Plavix*] 75 mg PO DAILY 10/12/12 Metoprolol Tartrate [Lopressor*] 25 mg PO BID 10/12/12 Aspirin Chewable [Aspirin Chewable*] 81 mg PO DAILY 04/23/17 Escitalopram Oxalate [Lexapro] 10 mg PO DAILY 06/29/18 Atorvastatin Calcium [Lipitor] 40 mg PO BEDTIME #30 tab 10/04/17 Furosemide [Lasix] 40 mg PO BIDL #60 tab 12/11/17 Glimepiride [Amaryl] 1 mg PO DAILY #30 tablet 12/11/17 Pantoprazole [Protonix Tab*] 40 mg PO DAILYAC #30 tab 12/11/17 Sacubitril/Valsartan [Entresto 24 mg-26 mg Tablet] 1 tab PO BID #60 tab Fluticasone/Salmeterol [Advair 250-50 Diskus] 1 each IH TID PRN 02/11/18 - Past Medical/Surgical History Has patient received pneumonia vaccine in the past: Yes Diabetic: Yes -: HTN -: Hyperlipidemia -: Diabetes mellitus type 2 [id number]-[id number] -: COPD, oxygen-dependent -: CAD with prior stent -: Systolic congestive heart failure, ejection fraction 30% -: Thoracic aortic aneurysm -: Chronic kidney disease -: Anemia of chronic disease -: GERD -: Former tobacco use -: Hiatal hernia -: Aortic aneurysm -: 2 cardiac stents (2010) Psychosocial/ Personal History: Patient is - Family History Father -: Heart disease Mother -: Diabetes Sister -: Diabetes - Social History Smoking Status: Former smoker Alcohol use: No CD- Drugs: No Caffeine use: Yes Place of Residence: Home Review of Systems General: Weakness Eyes: Unremarkable ENT: Unremarkable Respiratory: Shortness of Breath, As per HPI Cardiovascular: Paroxysmal Noc. Dyspnea, Edema, Light Headedness, As per HPI Gastrointestinal: Unremarkable Genitourinary: Unremarkable Musculoskeletal: Pedal edema, As per HPI Integumentary: Unremarkable Neurological: Weakness, As per HPI Lymphatics: Unremarkable Physical Examination - Vital Signs Temperature: 97.8 F Blood Pressure: 129/89 Pulse: 93 Respirations: 18 - Physical Exam General: Alert, Oriented x3, Cooperative, Mild distress, Other (Currently on BiPAP. Patient appropriate.) HEENT: Atraumatic, Normocephalic Neck: Supple Respiratory: Diminished (Decreased bilaterally), Expiratory wheezes (Bilateral) Cardiovascular: Normal pulses, Regular rate/rhythm Gastrointestinal: Normal bowel sounds, Soft and benign, Non-distended, No ascites, No tenderness, No masses, No rebound, No guarding Musculoskeletal: No erythema, No tenderness, No warmth Integumentary: No erythema, No warmth, No cyanosis, Tenderness/swelling (Mild pitting edema to the lower extremities) Neurological: Normal speech, Normal strength at 5/5 x4 extr, Normal tone, Normal affect - Studies Laboratory Data (last 24 hrs) 02/11/18 07:00: PT 12.6 H, INR 1.07 02/11/18 07:00: WBC 9.1, Hgb 9.1 L, Hct 27.9 L, Plt Count 344 02/11/18 07:00: Sodium 145, Potassium 4.7, BUN 22 H, Creatinine 2.10 H, Glucose 186 H, Magnesium 2.3, Total Bilirubin 0.4, AST 34, ALT 40, Alkaline Phosphatase 114 Assessment and Plan - Plan Impression: Acute on chronic respiratory failure secondary to COPD exacerbation and acute on chronic systolic CHF exacerbation complicated with bilateral pleural effusions and right basilar atelectasis Acute on chronic systolic CHF exacerbation with ejection fraction 30% Thoracic aortic aneurysm seen and followed by cardiovascular surgery as an outpatient Acute on chronic renal disease stage III Hypertension Hyperlipidemia CAD with prior stents Depression Diabetes mellitus type 2, [id number] Anemia of chronic disease Plan: Acute on chronic respiratory failure secondary to COPD exacerbation and acute on chronic systolic CHF exacerbation complicated with bilateral pleural effusions and right basilar atelectasis: Patient stable on BiPAP. Patient will be admitted to telemetry. Will continue with IV Lasix. Will wean off BiPAP. Will maintain sats above 90%. Will cover with IV steroids and COPD treatment. Pulmonology and Cardiology consulted. Case discussed briefly with pulmonology. Will reassess tomorrow. Will monitor chest x-ray due to pleural effusions. No need for antibiotics at this time as pneumonia is not suspected. Will continue to reassess. Acute on chronic systolic CHF exacerbation with ejection fraction 30%: Continue with IV Lasix. Continue with fluid restriction. Will continue with home medication-Entresto. Cardiology consulted to further assess. Thoracic aortic aneurysm seen and followed by cardiovascular surgery as an outpatient: Recent CT scan shows thoracic aortic aneurysm. Case discussed at length with cardiology and pulmonology. No emergent need for cardiovascular surgeon at this time. This will need to be followed up by cardiovascular surgery soon as an outpatient. Will continue monitor closely. Patient may require surgical intervention in the near future. Acute on chronic renal disease stage III: Stable. Will continue to monitor closely. Will adjust medications per renal function. Recommend no nonsteroidal anti-inflammatories. Nephrology consulted to further monitor and address. Hypertension: Will continue with home medication. This includes metoprolol ER and Entresto. Hyperlipidemia: Will continue with home medication CAD with prior stents: Will monitor cardiac enzymes. Cardiology consulted. Depression: Continue with medication. Diabetes mellitus type 2, [id number]: Continue with accuchecks. Continue with sliding scale. Anemia of chronic disease: Will monitor closely. Discharge Plan: Home Plan to discharge in: 72 Hours - Advance Directives Does patient have a Living Will: No Does patient have a Durable POA for Healthcare: No Time Spent Managing Pts Care (In Minutes): 55
[2018-02-11 14:41] LABS: CKMB Creatine Kinase MB 1.6 ng/mL (0.3-3.6); Troponin I 0.02 ng/mL (0.0-0.045)
[2018-02-11 16:19] LABS: Urine Appearance CLOUDY; Urine Bilirubin NEGATIVE (NEG); Urine Blood 3+ (NEG); Urine Color YELLOW; Urine Glucose NEGATIVE (NEG); Urine Protein TRACE (NEG); Urine Specific Gravity 1.015 (1.005-1.030); Urine Urobilinogen 0.2 mg/dL (0.2-1.0)
[2018-02-11 16:27] LABS: Urine Microscopic Reflex ORDER UMIC
[2018-02-11 16:42] LABS: Urine Bacteria >50 /HPF (<20); Urine Culture Reflex Order REFLEXED; Urine RBC TNTC /HPF (NONE SEEN)
[2018-02-11] MEDS: METHYLPREDNISOLONE 40 MG INJ IV SCH (16:55)
[2018-02-11] MEDS ORDERED: CEFTRIAXONE 1 GM/NS 50 ML 1 GM/50 ML BAG IV ONE (20:51)
[2018-02-11] MEDS: ARFORMOTEROL TARTRATE 15 MCG/2 ML VIAL.NEB NEB SCH (20:55)
[2018-02-11] MEDS: IPRATROPIUM BROM 0.5MG/2.5ML NEB PRN (20:55)
[2018-02-11] MEDS: ATORVASTATIN 40 MG TAB PO SCH (21:49)
[2018-02-11 22:00] LABS: CKMB Creatine Kinase MB 1.4 ng/mL (0.3-3.6); Creatine Phosphokinase 65 U/L (26-192); Troponin I < 0.02 ng/mL (0.0-0.045)
[2018-02-11] MEDS ORDERED: CEFTRIAXONE/SWI 1gm 1 GM/10 ML SYR IV ONE (22:00)
[2018-02-12] MEDS: ALBUTEROL 2.5 MG/3 ML NEB SOL NEB PRN (00:45)
[2018-02-12] MEDS: METHYLPREDNISOLONE 40 MG INJ IV SCH ×2 (01:09→08:59)
[2018-02-12] MEDS: PANTOPRAZOLE 40MG TABLET PO SCH (05:28)
[2018-02-12 07:01] LABS: Absolute Lymphocytes (CBC) 0.3 K/uL (0.7-4.9); Absolute Monocytes 0.1 K/uL (0.1-1.3); Absolute Neutrophil 5.5 K/uL (1.8-8.0); Basophils % 0.2 % (0-1.3); Hematocrit 25.7 % (36.0-45.0); Lymphocytes % 4.7 % (15.3-44.8); MCH 31.6 pg (27.0-35.0); MCV 97.1 fL (80-100); MPV 8.4 fL (7.6-11.3); Monocytes % 1.5 % (3.3-12.3); RBC Red Blood Cell Count 2.65 M/uL (3.86-4.86)
[2018-02-12 07:24] LABS: Magnesium 2.5 mg/dL (1.8-2.4); Potassium 4.3 mmol/L (3.5-5.1)
--- NOTE | 2018-02-12 08:19 | RAD REPORT ---
EXAM DESCRIPTION: RAD - Chest Single View - 02/12/2018 6:30 am CLINICAL HISTORY: CHF, COPD COMPARISON: February 11 TECHNIQUE: AP portable chest image was obtained 0615 hours . FINDINGS: Lung volumes are similar to comparison. Pleural effusion and right base opacification have not changed. There may be slight improvement in aeration of the left lung base. Interstitial edema a nd vascular engorgement fractionally improved. Cardiomegaly and enlargement of the mediastinum has no t changed. No pneumothorax present. No enlarging pleural fluid collections. No acute bony abnormality seen. No acute aortic findings suspected. IMPRESSION: Slight improvement in the overall CHF/volume overload pattern. Left base is better aerat ed. Right base pleural effusion and parenchymal opacification have not changed.
[2018-02-12] MEDS: ARFORMOTEROL TARTRATE 15 MCG/2 ML VIAL.NEB NEB SCH ×2 (08:46→20:41)
[2018-02-12] MEDS: CLOPIDOGREL 75 MG TABLET PO SCH (08:52)
[2018-02-12] MEDS: FUROSEMIDE 20 MG/ 2ML VIAL IV SCH (08:52)
[2018-02-12] MEDS: ESCITALOPRAM 20 MG TAB PO SCH (08:52)
[2018-02-12] MEDS: ENOXAPARIN 30 MG/0.3 ML SQ SCH (08:53)
[2018-02-12] MEDS: ASPIRIN EC 81 MG TAB PO SCH (08:53)
[2018-02-12] MEDS: SACUBITRIL/VALSARTAN 24/26 MG TAB PO SCH ×2 (08:53→21:06)
[2018-02-12] MEDS: INSULIN -REGULAR HUMAN 50 UNIT/0.5 ML ML SQ SCH ×4 (08:53→21:06)
[2018-02-12] MEDS: METOPROLOL XL 25 MG TAB PO SCH ×2 (10:22→21:05)
[2018-02-12] MEDS ORDERED: ARFORMOTEROL TARTRATE 15 MCG/2 ML VIAL.NEB NEB SCH (12:08)
--- NOTE | 2018-02-12 12:14 | P.PN ---
Subjective Date of Service: 02/12/18 (Hospitalist) Primary Care Provider: Dr. Stevens; Pulmonary-Dr. Webb; Cardiology-Dr. Hook Chief Complaint: Shortness of breath Subjective: Improving (Patient is improving he is on bronchodilators I suspect that she has underlying COPD former smoker not taking any bronchodilators at home) Patient is doing better no new complaints breathing has improved she does not take any bronchodilators at home large mental for thoracic aneurysm Review of Systems Unremarkable Physical Examination - Vital Signs Temperature: 97.9 F Blood Pressure: 133/87 Pulse: 90 Respirations: 18 Pulse Ox (%): 96 - Physical Exam General: Alert, Oriented x3 Neck: Supple Respiratory: Clear to auscultation bilaterally Cardiovascular: No edema, Regular rate/rhythm - Studies Laboratory Data (last 24 hrs) 02/11/18 07:00: Troponin I < 0.02 Assessment & Plan - Problems (Diagnosis) (1) COPD with exacerbation Onset Date: 04/25/17 Current Visit: No Status: Acute Plan: Patient is 72 years of age admitted with shortness of breath I suspect that she has COPD exacerbation she will need bronchodilators at home continue with brought Wanna I have added prednisone Dc Solu-Medrol daily room air pulse ox to see if she will qualify for home O2 patient was hypercapnic and hypoxic patient has congestive heart failure (2) Thoracic aneurysm without mention of rupture Current Visit: Yes Status: Acute Plan: Patient is admitted with the enlarging aneurysm seen by Cardiology Qualifiers: Presence of rupture: without rupture Qualified Code(s): I71.2 - Thoracic aortic aneurysm, without rupture
[2018-02-12] MEDS: predniSONE 20 MG TAB PO SCH ×2 (12:16→21:06)
[2018-02-12] MEDS: FUROSEMIDE 40 MG TABLET PO SCH (16:55)
--- NOTE | 2018-02-12 20:18 | CON ---
Date of Consultation: 02/11/2018 Dr. Gates on 02/11/2018. The patient was seen on 02/11/2018. Reason For Consultation: Abdominal aortic aneurysm. History Of Present Illness: Ms. Ayala is a 72-year-old black woman. She is known to us from [facility]. She normally is a patient of Dr. Kendrick Stevens. She has a history of chr onic systolic congestive heart failure. Last echocardiogram in December 2017, her ejection fraction was 35%. She has a history of renal failure, depression, coronary artery disease, thoracic and abdo malissa aortic aneurysm, diabetes, hypertension, dyslipidemia, and gastroesophageal reflux disease. Ca me in with multiple medical problems including anemia, shortness of breath, congestive heart failure exacerbation and was found to have a large abdominal aortic aneurysm right at the beginning of the di aphragmatic area at 5.8 x 7.3 with a right lateral thrombus and maybe thinning of the wall. This has worsened since April. Allergies: SHE IS ALLERGIC TO IODINE AND CODEINE. Review of Systems: Negative. Social History: Negative. Family History: Negative. Medications: At home include Lasix, aspirin, Amaryl, Lipitor, Entresto, Plavix, Protonix, Lexapro, i nhalers, and metoprolol. Physical Examination: General: She was in mild respiratory distress, pleasant, smiling. O2 saturations adequate on nasal cannula. She was in sinus rhythm. HEENT: Negative. Neck: Supple with no bruit. Chest: Reveals some rales at the bases and some expiratory wheezing. Cardiac: Revealed a regular rhythm and rate with an S4 gallops. Abdomen: Benign. Extremities: Revealed no clubbing, cyanosis. She had trace edema. Diagnostic Data: She had hematuria with urinary tract infection. She had a creatinine of 2.1, PO2 w as 269 with a pCO2 of 57, pH of 7.29. When she came in, her hemoglobin was 9.1, glucose of 232. [place] [address]. Chest x-ray showed bilateral effusion. CT of the abdomen was stated earlier. Impression And Plan: 1.Acute on chronic systolic congestive heart failure, being treated with Lasix appropriately. The p atient improving. Ejection fraction of 35% in December of 2017 on Entresto. Renal insufficiency of 2.1. No need to change her cardiac medications at this point. 2.Chronic obstructive pulmonary disease exacerbation, improving. 3.Renal insufficiency, stage 3. 4.History of depression. 5.History of coronary artery disease that is stable. 6.Thoracoabdominal aneurysm, enlarging, 5.8 x 7.3. Thinning of the lateral wall with a right latera l thrombus. The patient needs to have that investigated further. She normally sees Dr. Skinner. I think she saw him about a year or 2 ago, and I will leave that up to Dr. Stevens, but the patient nee ds to have that investigated as soon as possible for possible open surgery versus a stent. I am not so sure if the aneurysm involved the kidney arteries, which obviously will exclude endograft as a pos sibility, but I will let the vascular surgeon deal with that issue. Her diabetes, hypertension, dysl ipidemia, gastroesophageal reflux disease seem to be stable at this point. She is mildly anemic. I will discuss the case further with Dr. Gates and Rodney. PHILL/CHRISTY Voice ID: [id number] Report ID: [id number]
[2018-02-12] MEDS: ATORVASTATIN 40 MG TAB PO SCH (21:05)
[2018-02-13] MEDS: PANTOPRAZOLE 40MG TABLET PO SCH (05:24)
[2018-02-13 05:41] VITALS: BMI 24.6
[2018-02-13 06:12] LABS: Absolute Lymphocytes (CBC) 0.5 K/uL (0.7-4.9); Absolute Monocytes 0.3 K/uL (0.1-1.3); Absolute Neutrophil 6.8 K/uL (1.8-8.0); Basophils % 0.2 % (0-1.3); Hematocrit 25.3 % (36.0-45.0); Lymphocytes % 6.4 % (15.3-44.8); MCH 32.4 pg (27.0-35.0); MCV 97.2 fL (80-100); MPV 8.6 fL (7.6-11.3); Monocytes % 4.4 % (3.3-12.3); RBC Red Blood Cell Count 2.61 M/uL (3.86-4.86)
[2018-02-13 06:16] LABS: Magnesium 2.4 mg/dL (1.8-2.4); Potassium 4.6 mmol/L (3.5-5.1)
--- NOTE | 2018-02-13 07:07 | EKG ---
Test Date: 2018-02-11 Test Time: 06:48:36 Varnishing Machine Operator: RR MEASUREMENT RESULTS: Intervals: Rate: 100 MN: 160 QRSD: 100 QT: 384 QTc: 495 Onley: P: 40 MN: 160 QRS: 2 T: 57 INTERPRETIVE STATEMENTS: Normal sinus rhythm Possible Inferior infarct, age undetermined Abnormal ECG Compared to ECG 12/08/2017 13:06:46 Myocardial infarct finding now present T-wave abnormality no longer present Prolonged QT interval no longer present Electronically Signed On 02-13-18 07:04:07 SAMPLE DISPLAY PREPARER by Vitaliy Hook
[2018-02-13] MEDS: INSULIN -REGULAR HUMAN 50 UNIT/0.5 ML ML SQ SCH ×4 (07:30→20:34)
[2018-02-13 08:29] LABS: Anisocytosis 1+; Blood Morphology Comment NOTED (NOT SEEN); Platelet Estimate ADEQ; Poikilocytosis 1+; Urine White Blood Cell Casts OK
[2018-02-13] MEDS: ARFORMOTEROL TARTRATE 15 MCG/2 ML VIAL.NEB NEB SCH ×2 (09:06→21:25)
[2018-02-13] MEDS: FUROSEMIDE 40 MG TABLET PO SCH ×2 (10:50→16:45)
[2018-02-13] MEDS: CLOPIDOGREL 75 MG TABLET PO SCH (10:51)
[2018-02-13] MEDS: ASPIRIN EC 81 MG TAB PO SCH (10:51)
[2018-02-13] MEDS: SACUBITRIL/VALSARTAN 24/26 MG TAB PO SCH ×2 (10:51→20:28)
[2018-02-13] MEDS: METOPROLOL XL 25 MG TAB PO SCH ×2 (10:51→20:27)
[2018-02-13] MEDS: predniSONE 20 MG TAB PO SCH ×2 (10:51→20:28)
[2018-02-13] MEDS: ESCITALOPRAM 20 MG TAB PO SCH (10:51)
[2018-02-13] MEDS: ENOXAPARIN 30 MG/0.3 ML SQ SCH (10:52)
[2018-02-13] MEDS: ALBUTEROL 2.5 MG/3 ML NEB SOL NEB PRN (14:45)
[2018-02-13] MEDS: IPRATROPIUM BROM 0.5MG/2.5ML NEB PRN (14:45)
--- NOTE | 2018-02-13 17:46 | P.PN ---
Subjective Date of Service: 02/13/18 Primary Care Provider: Dr. Stevens; Pulmonary-Dr. Webb; Cardiology-Dr. Hook Chief Complaint: Shortness of breath Pt seen and examined at bedside. Chart Reviewed. Case DW with Cardiology and PCP Review of Systems 10-point ROS is otherwise unremarkable Physical Examination - Vital Signs Temperature: 97.8 F Blood Pressure: 125/75 Pulse: 93 Respirations: 18 Pulse Ox (%): 99 - Physical Exam General: Alert, In no apparent distress HEENT: Atraumatic, PERRLA, EOMI Neck: Supple, JVD not distended Respiratory: Clear to auscultation bilaterally, Normal air movement Cardiovascular: Regular rate/rhythm, Normal S1 S2 Gastrointestinal: Normal bowel sounds, No tenderness Musculoskeletal: No tenderness Integumentary: No rashes Neurological: Normal speech, Normal tone, Normal affect Lymphatics: No axilla or inguinal lymphadenopathy - Studies Medications List Reviewed: Yes Assessment And Plan - Current Problems (Diagnosis) (1) Thoracic aneurysm without mention of rupture Onset Date: 02/13/18 Current Visit: Yes Status: Acute Plan: Cardiology consulted. Appreciate Reccs -Pt seen by Dr Sk[place] will get in touch with him for further care -Vitals stable at this time -Will continue to monitor closely Qualifiers: Presence of rupture: without rupture Qualified Code(s): I71.2 - Thoracic aortic aneurysm, without rupture (2) Acute and chronic respiratory failure Onset Date: 02/13/18 Current Visit: Yes Status: Resolved Plan: Acute On Chronic RF most likley 2.2 to COPD Exacerbation now resolved -on Oxygen 3L which she has at home Qualifiers: Respiratory failure complication: hypoxia and hypercapnia Qualified Code(s) : J96.21 - Acute and chronic respiratory failure with hypoxia; J96.22 - Acute and chronic respiratory failure with hypercapnia (3) COPD (chronic obstructive pulmonary disease) Onset Date: 10/03/17 Current Visit: No Status: Chronic Plan: Acute RF 2.2 to COPD exacerbation -Continue on Duonebs, Steriods and Oxygen -Pulmonology consulted. Appreciate Reccs -she will need bronchodilators at home thus contiunshmuel Babb Qualifiers: COPD type: COPD with acute exacerbation Qualified Code(s): J44.1 - Chronic obstructive pulmonary disease with (acute) exacerbation (4) Hyperlipidemia Onset Date: 10/03/17 Current Visit: No Status: Chronic Qualifiers: Hyperlipidemia type: mixed hyperlipidemia Qualified Code(s): E78.2 - Mixed hyperlipidemia (5) CAD (coronary artery disease) Onset Date: 04/25/17 Current Visit: No Status: Chronic Qualifiers: Coronary Disease-Associated Artery/Lesion type: [place] artery [place] vs. transplanted heart: [place] heart Associated angina: without angina Qualified Code(s): I25.10 - Atherosclerotic heart disease of [place] coronary artery without angina pectoris (6) Diabetes mellitus type 2 Onset Date: 04/25/17 Current Visit: No Status: Chronic (7) Hypertensive disorder, systemic arterial Onset Date: 04/25/17 Current Visit: No Status: Chronic Discharge Plan: Home Plan to discharge in: 48 Hours - Code Status/Comfort Care Code Status Assessed: Yes Critical Care: No
[2018-02-13] MEDS: ATORVASTATIN 40 MG TAB PO SCH (20:28)
--- NOTE | 2018-02-13 23:19 | P.CNS ---
Date of Consult: 02/13/18 Reason for Consult: DARRYL Requesting Physician: Kendrick Stevens Primary Care Provider: Dr. Stevens; Pulmonary-Dr. Webb; Cardiology-Dr. Hook Chief Complaint: Shortness of breath History of Present Illness: 72-year-old female presented to the emergency room with increasing shortness of breath. Patient has reported increasing shortness of breath over the last several days. Yesterday got worse. This morning she could hardly breathe. Patient with multiple medical problems including systolic CHF, hyperlipidemia, CAD, thoracic aortic aneurysm, COPD and depression. Patient is seen by Dr. Stevens. I am covering for him this weekend. Patient seen in the emergency room. Patient in respiratory distress. Patient required BiPAP. Initial ABG showed a pH is 7.29 with a pC02 of 58. White count 9.1, hemoglobin 9.1. Sodium 145, potassium 4.7. BUN of 22, creatinine 2.1 with a GFR 28. Glucose 186. Chest x-ray showed bilateral pleural effusion with right basilar atelectasis. Recent CT scan reviewed shows thoracic aortic aneurysm showing evidence and enlargement since April 2017. No acute aortic leakage suspected. Weakening of right lateral aortic wall noted. Patient was stabilize in the emergency room. Patient admitted for further evaluation. 07:36 This 72 yrs old Black Female presents to ER via EMS with complaints of Shortness Of jr8 Breath. 07:36 The patient has shortness of breath at rest. Onset: The symptoms/episode began/occurred jr8 acutely, today. Duration: The symptoms are continuous. The patient's shortness of breath is aggravated by talking. Associated signs and symptoms: The patient has no apparent associated signs or symptoms. Severity of symptoms: At their worst the symptoms were moderate in the emergency department the symptoms are unchanged. It is unknown whether or not the patient has had similar symptoms in the past. The patient has not recently seen a physician. Patient stated that she has shortness of breath last night that worsened through this morning. EMS called for cute dyspnea. Patient 78% RA. Allergies iodine Allergy (Mild, Verified 04/23/17 10:11) Itching/Hives/Rash codeine Adverse Reaction (Intermediate, Verified 04/23/17 10:11) Hives/Rash Home medications list reviewed: Yes Home Medications: Clopidogrel Bisulfate [Plavix*] 75 mg PO DAILY 10/12/12 Metoprolol Tartrate [Lopressor*] 12.5 mg PO BID 10/12/12 Aspirin Chewable [Aspirin Chewable*] 81 mg PO DAILY 04/23/17 Escitalopram Oxalate [Lexapro] 10 mg PO DAILY 09/30/17 Atorvastatin Calcium [Lipitor] 40 mg PO BEDTIME #30 tab 10/04/17 Furosemide [Lasix] 40 mg PO BIDL #60 tab 12/11/17 Glimepiride [Amaryl] 1 mg PO DAILY #30 tablet 12/11/17 Pantoprazole [Protonix Tab*] 40 mg PO DAILYAC #30 tab 12/11/17 Sacubitril/Valsartan [Entresto 24 mg-26 mg Tablet] 1 tab PO BID #60 tab Fluticasone/Salmeterol [Advair 250-50 Diskus] 1 each IH TID PRN 02/11/18 predniSONE [Deltasone*] 10 mg PO BID 10 Days #20 tab 02/14/18 - Past Medical/Surgical History Diabetic: Yes -: HTN -: Hyperlipidemia -: Diabetes mellitus type 2 [id number] -: COPD, oxygen-dependent -: CAD with prior stent -: Systolic congestive heart failure, ejection fraction 30% -: Thoracic aortic aneurysm -: Chronic kidney disease -: Anemia of chronic disease -: GERD -: Former tobacco use -: Hiatal hernia -: Aortic aneurysm -: 2 cardiac stents (2010) Psychosocial/ Personal History: Patient is - Family History Father Medical History: Heart disease Mother Medical History: Diabetes Sister Medical History: Diabetes - Social History Smoking Status: Unknown if ever smoked Alcohol use: No CD- Drugs: No Caffeine use: Yes Place of Residence: Home Review of Systems 10-point ROS is otherwise unremarkable General: Weakness Neurological: Weakness Physical Examination Temp Pulse Resp BP Pulse Ox 97.8 F 92 H 20 125/80 97 02/13/18 20:00 02/13/18 20:27 02/13/18 20:00 02/13/18 20:27 02/13/18 20:00 General: In no apparent distress, Oriented x3, Cooperative HEENT: Atraumatic Neck: Supple Respiratory: Clear to auscultation bilaterally, Diminished Cardiovascular: No edema, Regular rate/rhythm, No rubs Gastrointestinal: Soft and benign, Non-distended Musculoskeletal: No clubbing, No contractures Integumentary: No rashes, No cyanosis Neurological: Normal speech Blood work reviewed. Hgb 8.5; Cr 2.2 Imagings Data: EXAM DESCRIPTION: RAD - Chest Single View - 02/12/2018 6:30 am CLINICAL HISTORY: CHF, COPD COMPARISON: February 11 TECHNIQUE: AP portable chest image was obtained 0615 hours . FINDINGS: Lung volumes are similar to comparison. Pleural effusion and right base opacification have not changed. There may be slight improvement in aeration of the left lung base. Interstitial edema and vascular engorgement fractionally improved. Cardiomegaly and enlargement of the mediastinum has not changed. No pneumothorax present. No enlarging pleural fluid collections. No acute bony abnormality seen. No acute aortic findings suspected. IMPRESSION: Slight improvement in the overall CHF/volume overload pattern. Left base is better aerated. Right base pleural effusion and parenchymal opacification have not changed. Conclusions/Impression: A/ DARRYL CKD III. HTN with CKD. DM II with CKD. Anemia in chronic illness. A/C Systolic CHF. A/C Respiratory failure. Thoracolumbar Aneurysm. E.coli Cystitis. P/ Continue current POC and Medications. Agree with Lasix. Give Epo. Start Vitamin D. Consider abx for cystitis. No NSAIDs. AM labs. Daily weight. Thank you kindly for the consultation.
[2018-02-13] MEDS: EPOETIN ALFA 10,000 UNIT/ML SQ ONE (23:48)
[2018-02-14] MEDS: EPOETIN ALFA 10,000 UNIT/ML SQ ONE (00:10)
[2018-02-14] MEDS ORDERED: EPOETIN ALFA 10,000 UNIT/ML VIAL ONE (00:18)
[2018-02-14 04:42] VITALS: O2SAT 98
[2018-02-14 05:04] LABS: Absolute Lymphocytes (CBC) 0.4 K/uL (0.7-4.9); Absolute Monocytes 0.2 K/uL (0.1-1.3); Absolute Neutrophil 6.1 K/uL (1.8-8.0); Basophils % 0.2 % (0-1.3); Hematocrit 26.4 % (36.0-45.0); Lymphocytes % 6.3 % (15.3-44.8); MCH 32.1 pg (27.0-35.0); MCV 97.3 fL (80-100); MPV 8.9 fL (7.6-11.3); Monocytes % 2.6 % (3.3-12.3); RBC Red Blood Cell Count 2.71 M/uL (3.86-4.86)
[2018-02-14] MEDS: PANTOPRAZOLE 40MG TABLET PO SCH (05:32)
[2018-02-14 05:39] LABS: Folic Acid, (Folate) 7.4 ng/mL (3.1-17.5); Magnesium 2.3 mg/dL (1.8-2.4); Phosphorus 4.6 mg/dL (2.5-4.9); Potassium 4.5 mmol/L (3.5-5.1); Uric Acid 8.9 mg/dL (2.6-6.0)
[2018-02-14] MEDS ORDERED: EPOETIN ALFA 10,000 UNIT/ML SQ ONE ×2 (07:30→09:15)
[2018-02-14] MEDS: INSULIN -REGULAR HUMAN 50 UNIT/0.5 ML ML SQ SCH ×2 (07:30→11:45)
[2018-02-14] MEDS: ARFORMOTEROL TARTRATE 15 MCG/2 ML VIAL.NEB NEB SCH (07:50)
[2018-02-14 08:55] LABS: Urine Appearance CLEAR; Urine Bilirubin NEGATIVE (NEG); Urine Blood NEGATIVE (NEG); Urine Color YELLOW; Urine Glucose NEGATIVE (NEG); Urine Protein TRACE (NEG); Urine Specific Gravity 1.015 (1.005-1.030); Urine Urobilinogen 0.2 mg/dL (0.2-1.0)
[2018-02-14] MEDS ORDERED: VITAMIN D 5,000 UNIT CAP PO SCH (09:00)
[2018-02-14] MEDS: FUROSEMIDE 40 MG TABLET PO SCH (09:13)
[2018-02-14] MEDS: SACUBITRIL/VALSARTAN 24/26 MG TAB PO SCH (09:13)
[2018-02-14] MEDS: ENOXAPARIN 30 MG/0.3 ML SQ SCH (09:13)
[2018-02-14 09:14] LABS: UR MICROALBUMIN 8.6 mg/dL (< 1.9)
[2018-02-14] MEDS: CLOPIDOGREL 75 MG TABLET PO SCH (09:14)
[2018-02-14] MEDS: METOPROLOL XL 25 MG TAB PO SCH (09:14)
[2018-02-14] MEDS: ASPIRIN EC 81 MG TAB PO SCH (09:14)
[2018-02-14] MEDS: predniSONE 20 MG TAB PO SCH (09:14)
[2018-02-14] MEDS: ESCITALOPRAM 20 MG TAB PO SCH (09:15)
[2018-02-14 09:19] LABS: Urine Bacteria <20 /HPF (<20); Urine Culture Reflex Order NOT NEEDED; Urine RBC <5 /HPF (NONE SEEN)
[2018-02-14 13:40] VITALS: BP 141/89; TEMP 98.7
--- NOTE | 2018-02-15 15:08 | PN ---
Date of Progress Note: 02/14/2018 Subjective: The patient feels much better today of breathing. She feels back to baseline. Had a di scussion with and felt that she would not be a candidate for stent and would be requir e major surgery procedure. In view of the fact that she has COPD, renal problems and cardiac problem s, we felt it would be a difficult scenario, however, she will be discharged. Continue on her usual medication with addition of prednisone 10 mg twice a day for 10 days. She instructed at that time on ce she was discharged to set up appointment with for further discussion. As mentioned she was discharged on her usual medications. I feel it was mainly a flare of her COPD, possibly wit h the addition of a mild CHF. She was discharged on usual medication, plus the addition of prednison e, which she states she has been in the past, but not as of late, to monitor blood pressures as well. Follow up with me in a week. HR/MODL Voice ID: [id number] Report ID: [id number]
== END 2018-02-14 15:43 | disposition home or self-care (01) | DRG 189 ==
LOC: ER 06:38 → ERHOLD 08:05 → 4TH 09:16
PROVIDERS: ADMIT Family Medicine; ATTEND Family Medicine
PROC: 5A09457 Assistance with Respiratory Ventilation, 24-96 Consecutive Hours, Continuous Positive Airway Pressure (ICD-10-PCS; principal; 2018-02-11)
DX: J96.21 Acute and chronic respiratory failure with hypoxia (principal); I50.23 Acute on chronic systolic (congestive) heart failure; J44.1 Chronic obstructive pulmonary disease with (acute) exacerbation; I13.0 Hypertensive heart and chronic kidney disease with heart failure and stage 1 through stage 4 chronic kidney disease, or unspecified chronic kidney disease; N17.9 Acute kidney failure, unspecified; J98.11 Atelectasis; N30.00 Acute cystitis without hematuria; I71.2 Thoracic aortic aneurysm, without rupture; Z87.891 Personal history of nicotine dependence; Z88.5 Allergy status to narcotic agent; Z88.8 Allergy status to other drugs, medicaments and biological substances; I25.10 Atherosclerotic heart disease of native coronary artery without angina pectoris; Z95.5 Presence of coronary angioplasty implant and graft; K21.9 Gastro-esophageal reflux disease without esophagitis; N18.3 Chronic kidney disease, stage 3 (moderate); E11.22 Type 2 diabetes mellitus with diabetic chronic kidney disease; Z79.84 Long term (current) use of oral hypoglycemic drugs; E78.5 Hyperlipidemia, unspecified; F32.9 Major depressive disorder, single episode, unspecified; J96.22 Acute and chronic respiratory failure with hypercapnia; B96.20 Unspecified Escherichia coli [E. coli] as the cause of diseases classified elsewhere
CPT/HCPCS: 36415; 51702; 71045; 71250; 80048; 80061; 80076; 81001; 81003; 81015; 82043; 82550; 82553; 82570; 82607; 82746; 82805; 82962; 83540; 83605; 83735; 83880; 84100; 84145; 84466; 84484; 84550; 85025; 85610; 87040; 87070; 87077; 87081; 87086; 87088; 87186; 87804; 93005; 94640; 94760; 96374; 96375; 99285; G0008; J0696; J0885; J1650; J1940; J2920; J2930; J7512; J7605; Q2035; Q4081

== ENCOUNTER 2018-04-06 18:00 | Observation (INO) | payer BC, OTHER ==
--- OUTSIDE RECORDS SUMMARY | 2018-04-06 18:09 | XMS REPORT ---
:1945 Author Organization [facility] Address [address] [place] [address] Care Team Providers Name Role Phone BRITTNEY [...] Range Comments B-TYPE NATRIURETIC PEPTIDE (BEAKER) (test crth=225) 867 pg/mL 0-100 BASIC METABOLIC [id number] 15:05:00 Test Item Value Reference Range Comments SODIUM (BEAKER) (test 140 meq/L 136-145 hrjf=409) POTASSIUM (BEAKER) (test 4.6 meq/L 3.5-5.1 nssi=090) CHLORIDE (BEAKER) (test 98 meq/L 98-107 ydfy=337) CO2 (BEAKER) (test 32 meq/L 22-29 fyli=379) BLOOD UREA NITROGEN 30 mg/dL 7-21 (BEAKER) (test aszd=791) CREATININE (BEAKER) (test 2.58 mg/dL 0.57-1.25 gphf=716) GLUCOSE RANDOM (BEAKER) 105 mg/dL 70-105 (test esqw=466) CALCIUM (BEAKER) (test 10.3 mg/dL 8.4-10.2 akce=420) EGFR (BEAKER) (test 22 mL/min/1.73 sq m ESTIMATED GFR IS NOT ubbx=8159) ACCURATE CREATININE CLEARANCE IN PREDICTING GLOMERULAR FILTRATION RATE. ESTIMATED GFR IS NOT APPLICABLE FOR DIALYSIS PATIENTS. [id number] 15:02:00 Test Item Value Reference Range Comments MAGNESIUM (BEAKER) (test caxv=034) 2.0 mg/dL 1.6-2.6 POCT-GLUCOSE [id number] 12:40:00 Test Item Value Reference Range Comments POC-GLUCOSE METER (BEAKER) 225 mg/dL 70-110 TESTED AT [address] (test dmlv=7517) [place] [id number] POCT-GLUCOSE [id number] 08:32:00 Test Item Value Reference Range Comments POC-GLUCOSE METER (BEAKER) 148 mg/dL 70-110 TESTED AT [address] (test rrfa=0816) [place] [id number] BASIC METABOLIC [id number] 05:56:00 Test Item Value Reference Range Comments SODIUM (BEAKER) (test 138 meq/L 136-145 bclx=183) POTASSIUM (BEAKER) (test 4.0 meq/L 3.5-5.1 ujiz=154) CHLORIDE (BEAKER) (test 98 meq/L 98-107 fwtl=644) CO2 (BEAKER) (test 29 meq/L 22-29 fccc=320) BLOOD UREA NITROGEN 14 mg/dL 7-21 (BEAKER) (test hlfk=216) CREATININE (BEAKER) (test 1.85 mg/dL 0.57-1.25 ikfz=774) GLUCOSE RANDOM (BEAKER) 116 mg/dL 70-105 (test gdsu=395) CALCIUM (BEAKER) (test 9.9 mg/dL 8.4-10.2 eelk=522) EGFR (BEAKER) (test 33 mL/min/1.73 sq m ESTIMATED GFR IS NOT zxip=4243) ACCURATE CREATININE CLEARANCE IN PREDICTING GLOMERULAR FILTRATION RATE. ESTIMATED GFR IS NOT APPLICABLE FOR DIALYSIS PATIENTS. POCT-GLUCOSE [id number] 21:38:00 Test Item Value Reference Range Comments POC-GLUCOSE METER (BEAKER) 162 mg/dL 70-110 TESTED AT [address] (test jshm=0051) [facility] [address] POCT-GLUCOSE [id number] 17:02:00 Test Item Value Reference Range Comments POC-GLUCOSE METER (BEAKER) 160 mg/dL 70-110 TESTED AT [address] (test vwgr=5961) [place] [id number] POCT-GLUCOSE [id number] 12:33:00 Test Item Value Reference Range Comments POC-GLUCOSE METER (BEAKER) 163 mg/dL 70-110 TESTED AT [address] (test ecxc=2460) [place] [address] POCT-GLUCOSE [id number] 10:33:00 Test Item Value Reference Range Comments POC-GLUCOSE METER (BEAKER) 175 mg/dL 70-110 TESTED AT [address] (test emsh=2009) [place] [address] [id number] 04:51:00 Test Item Value Reference Range Comments MAGNESIUM (BEAKER) (test 2.0 mg/dL 1.6-2.6 Specimen slightly hemolyzed ilfu=584) BASIC METABOLIC [id number] 04:51:00 Test Item Value Reference Range Comments SODIUM (BEAKER) (test 139 meq/L 136-145 cioi=899) POTASSIUM (BEAKER) (test 3.8 meq/L 3.5-5.1 Specimen slightly plxm=738) hemolyzed CHLORIDE (BEAKER) (test 99 meq/L 98-107 sgtr=330) CO2 (BEAKER) (test 27 meq/L 22-29 nrrv=812) BLOOD UREA NITROGEN 14 mg/dL 7-21 (BEAKER) (test aaga=220) CREATININE (BEAKER) (test 1.61 mg/dL 0.57-1.25 Specimen slightly dvbu=080) hemolyzed GLUCOSE RANDOM (BEAKER) 139 mg/dL 70-105 (test esia=487) CALCIUM (BEAKER) (test 10.0 mg/dL 8.4-10.2 wnpx=482) EGFR (BEAKER) (test 38 mL/min/1.73 sq m ESTIMATED GFR IS NOT mjyb=6250) ACCURATE CREATININE CLEARANCE IN PREDICTING GLOMERULAR FILTRATION RATE. ESTIMATED GFR IS NOT APPLICABLE FOR DIALYSIS PATIENTS. POCT-GLUCOSE [id number] 21:32:00 Test Item Value Reference Range Comments POC-GLUCOSE METER (BEAKER) 176 mg/dL 70-110 TESTED AT [address] (test taze=3398) [place] [address] POCT-GLUCOSE [id number] 17:22:00 Test Item Value Reference Range Comments POC-GLUCOSE METER (BEAKER) 232 mg/dL 70-110 TESTED AT [address] (test igtp=0874) [place] [id number] POCT-GLUCOSE [id number] 12:47:00 Test Item Value Reference Range Comments POC-GLUCOSE METER (BEAKER) 162 mg/dL 70-110 TESTED AT [address] (test zkao=6195) [place] [id number] POCT-GLUCOSE [id number] 08:15:00 Test Item Value Reference Range Comments POC-GLUCOSE METER (BEAKER) 149 mg/dL 70-110 TESTED AT [address] (test zrty=5482) [place] [address] [id number] 07:05:00 Test Item Value Reference Range Comments MAGNESIUM (BEAKER) (test qlao=595) 1.9 mg/dL 1.6-2.6 BASIC METABOLIC [id number] 07:05:00 Test Item Value Reference Range Comments SODIUM (BEAKER) (test 136 meq/L 136-145 tsev=483) POTASSIUM (BEAKER) (test 3.8 meq/L 3.5-5.1 lefx=733) CHLORIDE (BEAKER) (test 98 meq/L 98-107 gosm=758) CO2 (BEAKER) (test 30 meq/L 22-29 zsrd=016) BLOOD UREA NITROGEN 14 mg/dL 7-21 (BEAKER) (test bbnq=320) CREATININE (BEAKER) (test 1.56 mg/dL 0.57-1.25 yyyk=984) GLUCOSE RANDOM (BEAKER) 129 mg/dL 70-105 (test rlkj=337) CALCIUM (BEAKER) (test 9.8 mg/dL 8.4-10.2 nqjd=135) EGFR (BEAKER) (test 40 mL/min/1.73 sq m ESTIMATED GFR IS NOT bkig=7513) ACCURATE CREATININE CLEARANCE IN PREDICTING GLOMERULAR FILTRATION RATE. ESTIMATED GFR IS NOT APPLICABLE FOR DIALYSIS PATIENTS. POCT-GLUCOSE [id number] 20:56:00 Test Item Value Reference Range Comments POC-GLUCOSE METER (BEAKER) 112 mg/dL 70-110 TESTED AT [address] (test lruc=2990) [place] [id number] POCT-GLUCOSE [id number] 17:48:00 Test Item Value Reference Range Comments POC-GLUCOSE METER (BEAKER) 213 mg/dL 70-110 TESTED AT [address] (test auvv=2031) [place] [address] POCT-GLUCOSE [id number] 11:40:00 Test Item Value Reference Range Comments POC-GLUCOSE METER (BEAKER) 208 mg/dL 70-110 TESTED AT [address] (test psij=6965) [place] [address] POCT-GLUCOSE [id number] 07:43:00 Test Item Value Reference Range Comments POC-GLUCOSE METER (BEAKER) 144 mg/dL 70-110 TESTED AT [address] (test qxju=7464) [place] [address] [id number] 04:52:00 Test Item Value Reference Range Comments MAGNESIUM (BEAKER) (test 2.0 mg/dL 1.6-2.6 Specimen slightly hemolyzed aedw=896) BASIC METABOLIC [id number] 04:52:00 Test Item Value Reference Range Comments SODIUM (BEAKER) (test 133 meq/L 136-145 tckb=031) POTASSIUM (BEAKER) (test 4.7 meq/L 3.5-5.1 Specimen slightly uyif=343) hemolyzed CHLORIDE (BEAKER) (test 97 meq/L 98-107 amfy=088) CO2 (BEAKER) (test 25 meq/L 22-29 edzm=178) BLOOD UREA NITROGEN 17 mg/dL 7-21 (BEAKER) (test bkxn=041) CREATININE (BEAKER) (test 1.63 mg/dL 0.57-1.25 Specimen slightly mlex=647) hemolyzed GLUCOSE RANDOM (BEAKER) 141 mg/dL 70-105 (test tqxu=550) CALCIUM (BEAKER) (test 9.8 mg/dL 8.4-10.2 abxb=391) EGFR (BEAKER) (test 38 mL/min/1.73 sq m ESTIMATED GFR IS NOT likk=1731) ACCURATE CREATININE CLEARANCE IN PREDICTING GLOMERULAR FILTRATION RATE. ESTIMATED GFR IS NOT APPLICABLE FOR DIALYSIS PATIENTS. POCT-GLUCOSE [id number] 21:29:00 Test Item Value Reference Range Comments POC-GLUCOSE METER (BEAKER) 198 mg/dL 70-110 TESTED AT [address] (test nhbi=9042) [place] [address] POCT-GLUCOSE [id number] 17:54:00 Test Item Value Reference Range Comments POC-GLUCOSE METER (BEAKER) 176 mg/dL 70-110 TESTED AT [facility] [address] [facility] (test iemf=0296) [facility] [address] POCT-GLUCOSE [id number] 07:05:00 Test Item Value Reference Range Comments POC-GLUCOSE METER (BEAKER) 137 mg/dL 70-110 TESTED AT [facility] [address] [facility] (test bwey=7829) [facility] [address] [id number] 06:53:00 Test Item Value Reference Range Comments MAGNESIUM (BEAKER) (test ixhq=731) 2.0 mg/dL 1.6-2.6 BASIC METABOLIC [id number] 05:37:00 Test Item Value Reference Range Comments SODIUM (BEAKER) (test 136 meq/L 136-145 qqat=123) POTASSIUM (BEAKER) (test 3.7 meq/L 3.5-5.1 mkov=928) CHLORIDE (BEAKER) (test 97 meq/L 98-107 cbmr=559) CO2 (BEAKER) (test 30 meq/L 22-29 xkoo=696) BLOOD UREA NITROGEN 17 mg/dL 7-21 (BEAKER) (test pbvk=982) CREATININE (BEAKER) (test 1.60 mg/dL 0.57-1.25 nwxb=552) GLUCOSE RANDOM (BEAKER) 116 mg/dL 70-105 (test pcbw=484) CALCIUM (BEAKER) (test 9.4 mg/dL 8.4-10.2 qyub=293) EGFR (BEAKER) (test 39 mL/min/1.73 sq m ESTIMATED GFR IS NOT btpn=6323) ACCURATE CREATININE CLEARANCE IN PREDICTING GLOMERULAR FILTRATION RATE. ESTIMATED GFR IS NOT APPLICABLE FOR DIALYSIS PATIENTS. CBC W/PLT COUNT & AUTO [id number] 05:02:00 Test Item Value Reference Range Comments WHITE BLOOD CELL COUNT (BEAKER) (test vjkp=595) 8.7 K/ L 3.5-10.5 RED BLOOD CELL COUNT (BEAKER) (test niey=954) 2.43 M/ L 3.93-5.22 HEMOGLOBIN (BEAKER) (test kosk=384) 7.5 GM/DL 11.2-15.7 HEMATOCRIT (BEAKER) (test jrss=481) 24.1 % 34.1-44.9 MEAN CORPUSCULAR VOLUME (BEAKER) (test mevr=527) 99.2 fL 79.4-94.8 MEAN CORPUSCULAR HEMOGLOBIN (BEAKER) (test 30.9 pg 25.6-32.2 lilb=118) MEAN CORPUSCULAR HEMOGLOBIN CONC (BEAKER) (test 31.1 GM/DL 32.2-35.5 oioq=374) RED CELL DISTRIBUTION WIDTH (BEAKER) (test 15.8 % 11.7-14.4 fieo=170) PLATELET COUNT (BEAKER) (test gebb=526) 586 K/CU MM 150-450 MEAN PLATELET VOLUME (BEAKER) (test znva=778) 9.5 fL 9.4-12.3 NUCLEATED RED BLOOD CELLS (BEAKER) (test 0 /100 WBC 0-0 mbnw=780) NEUTROPHILS RELATIVE PERCENT (BEAKER) (test 74 % vvmt=489) LYMPHOCYTES RELATIVE PERCENT (BEAKER) (test 15 % rpzl=598) MONOCYTES RELATIVE PERCENT (BEAKER) (test 8 % eejh=108) EOSINOPHILS RELATIVE PERCENT (BEAKER) (test 2 % lzij=046) BASOPHILS RELATIVE PERCENT (BEAKER) (test 1 % when=940) NEUTROPHILS ABSOLUTE COUNT (BEAKER) (test 6.41 K/ L 1.56-6.13 uyxd=438) LYMPHOCYTES ABSOLUTE COUNT (BEAKER) (test 1.32 K/ L 1.18-3.74 daib=703) MONOCYTES ABSOLUTE COUNT (BEAKER) (test 0.65 K/ L 0.24-0.36 zcom=243) EOSINOPHILS ABSOLUTE COUNT (BEAKER) (test 0.20 K/ L 0.04-0.36 izcr=560) BASOPHILS ABSOLUTE COUNT (BEAKER) (test 0.08 K/ L 0.01-0.08 zikt=402) IMMATURE GRANULOCYTES-RELATIVE PERCENT (BEAKER) 0 % 0-1 (test iaoh=9835) POCT-GLUCOSE [id number] 21:28:00 Test Item Value Reference Range Comments POC-GLUCOSE METER (BEAKER) 216 mg/dL 70-110 TESTED AT [address] (test csao=1701) [facility] [address] POCT-GLUCOSE [id number] 18:25:00 Test Item Value Reference Range Comments POC-GLUCOSE METER (BEAKER) 182 mg/dL 70-110 TESTED AT [address] (test gglg=3082) [facility] [address] POCT-GLUCOSE [id number] 09:37:00 Test Item Value Reference Range Comments POC-GLUCOSE METER (BEAKER) 155 mg/dL 70-110 TESTED AT [facility] [address] [facility] (test zvgf=9185) [facility] [address] CALCIUM, [id number] 07:37:00 Test Item Value Reference Range Comments CALCIUM IONIZED (BEAKER) (test hewh=081) 1.11 mmol/L 1.12-1.27 PH, BLOOD (BEAKER) (test mqdo=1701) 7.39 [id number] 07:10:00 Test Item Value Reference Range Comments FERRITIN (BEAKER) (test oakl=314) 445 ng/mL 5-275 IRON, TIBC, % SAT. (WITHOUT FERRITIN)2017-08-04 07:04:00 Test Item Value Reference Range Comments IRON (BEAKER) (test fohg=399) 55 ug/dL 40-160 TOTAL IRON BINDING CAPACITY (BEAKER) (test 198 ug/dL 250-450 okyf=240) IRON % SATURATION (2) (BEAKER) (test njoo=5157) 28 % 20-55 [id number] 06:57:00 Test Item Value Reference Range Comments PHOSPHORUS (BEAKER) (test nyxn=028) 4.3 mg/dL 2.3-4.7 [id number] 06:57:00 Test Item Value Reference Range Comments MAGNESIUM (BEAKER) (test fbsu=521) 2.1 mg/dL 1.6-2.6 BASIC METABOLIC [id number] 06:57:00 Test Item Value Reference Range Comments SODIUM (BEAKER) (test 138 meq/L 136-145 ivdp=669) POTASSIUM (BEAKER) (test 3.8 meq/L 3.5-5.1 ysrb=171) CHLORIDE (BEAKER) (test 99 meq/L 98-107 nfhq=838) CO2 (BEAKER) (test 29 meq/L 22-29 zkiz=694) BLOOD UREA NITROGEN 18 mg/dL 7-21 (BEAKER) (test eqpw=717) CREATININE (BEAKER) (test 1.75 mg/dL 0.57-1.25 ztru=689) GLUCOSE RANDOM (BEAKER) 138 mg/dL 70-105 (test yzta=041) CALCIUM (BEAKER) (test 9.7 mg/dL 8.4-10.2 bpjs=908) EGFR (BEAKER) (test 35 mL/min/1.73 sq m ESTIMATED GFR IS NOT zttt=0478) ACCURATE CREATININE CLEARANCE IN PREDICTING GLOMERULAR FILTRATION RATE. ESTIMATED GFR IS NOT APPLICABLE FOR DIALYSIS PATIENTS. B-TYPE NATRIURETIC FACTOR (BNP)2017-08-04 06:54:00 Test Item Value Reference Range Comments B-TYPE NATRIURETIC PEPTIDE (BEAKER) (test 778 pg/mL 0-100 nelx=047) RETICULOCYTE [id number] 06:39:00 Test Item Value Reference Range Comments RETICULOCYTE COUNT PCT (BEAKER) (test thxx=229) 8.3 % 0.5-1.7 CBC W/PLT COUNT & AUTO [id number] 06:39:00 Test Item Value Reference Range Comments WHITE BLOOD CELL COUNT (BEAKER) (test qlod=127) 9.0 K/ L 3.5-10.5 RED BLOOD CELL COUNT (BEAKER) (test qyac=621) 2.55 M/ L 3.93-5.22 HEMOGLOBIN (BEAKER) (test rmvj=827) 7.8 GM/DL 11.2-15.7 HEMATOCRIT (BEAKER) (test vqxn=401) 25.4 % 34.1-44.9 MEAN CORPUSCULAR VOLUME (BEAKER) (test rhiv=305) 99.6 fL 79.4-94.8 MEAN CORPUSCULAR HEMOGLOBIN (BEAKER) (test 30.6 pg 25.6-32.2 zzra=228) MEAN CORPUSCULAR HEMOGLOBIN CONC (BEAKER) (test 30.7 GM/DL 32.2-35.5 gein=201) RED CELL DISTRIBUTION WIDTH (BEAKER) (test 15.9 % 11.7-14.4 jobm=527) PLATELET COUNT (BEAKER) (test obsx=015) 591 K/CU MM 150-450 MEAN PLATELET VOLUME (BEAKER) (test foii=730) 9.5 fL 9.4-12.3 NUCLEATED RED BLOOD CELLS (BEAKER) (test 0 /100 WBC 0-0 jotf=433) NEUTROPHILS RELATIVE PERCENT (BEAKER) (test 77 % urem=795) LYMPHOCYTES RELATIVE PERCENT (BEAKER) (test 13 % kqvh=700) MONOCYTES RELATIVE PERCENT (BEAKER) (test 7 % ljix=379) EOSINOPHILS RELATIVE PERCENT (BEAKER) (test 2 % lpgg=387) BASOPHILS RELATIVE PERCENT (BEAKER) (test 1 % lnvr=962) NEUTROPHILS ABSOLUTE COUNT (BEAKER) (test 6.97 K/ L 1.56-6.13 ybom=508) LYMPHOCYTES ABSOLUTE COUNT (BEAKER) (test 1.13 K/ L 1.18-3.74 crkg=652) MONOCYTES ABSOLUTE COUNT (BEAKER) (test 0.65 K/ L 0.24-0.36 mhnj=817) EOSINOPHILS ABSOLUTE COUNT (BEAKER) (test 0.18 K/ L 0.04-0.36 vmox=083) BASOPHILS ABSOLUTE COUNT (BEAKER) (test 0.07 K/ L 0.01-0.08 trll=899) IMMATURE GRANULOCYTES-RELATIVE PERCENT (BEAKER) 0 % 0-1 (test wtqf=4994) POCT-GLUCOSE [id number] 20:56:00 Test Item Value Reference Range Comments POC-GLUCOSE METER (BEAKER) 167 mg/dL 70-110 TESTED AT [address] (test lsac=9799) [place] [address] POCT-GLUCOSE [id number] 16:36:00 Test Item Value Reference Range Comments POC-GLUCOSE METER (BEAKER) 200 mg/dL 70-110 TESTED AT [address] (test tnhw=3952) [place] [address] POCT-GLUCOSE [id number] 12:59:00 Test Item Value Reference Range Comments POC-GLUCOSE METER (BEAKER) 202 mg/dL 70-110 TESTED AT [address] (test bibs=6117) [place] [address] POCT-GLUCOSE [id number] 07:37:00 Test Item Value Reference Range Comments POC-GLUCOSE METER (BEAKER) 154 mg/dL 70-110 TESTED AT [address] (test orew=3378) [place] [address] CBC W/PLT COUNT & AUTO [id number] 06:49:00 Test Item Value Reference Range Comments WHITE BLOOD CELL COUNT (BEAKER) (test adpy=212) 9.8 K/ L 3.5-10.5 RED BLOOD CELL COUNT (BEAKER) (test kewr=945) 2.62 M/ L 3.93-5.22 HEMOGLOBIN (BEAKER) (test mzyn=021) 8.1 GM/DL 11.2-15.7 HEMATOCRIT (BEAKER) (test kkum=962) 25.9 % 34.1-44.9 MEAN CORPUSCULAR VOLUME (BEAKER) (test pldb=261) 98.9 fL 79.4-94.8 MEAN CORPUSCULAR HEMOGLOBIN (BEAKER) (test 30.9 pg 25.6-32.2 aqbj=798) MEAN CORPUSCULAR HEMOGLOBIN CONC (BEAKER) (test 31.3 GM/DL 32.2-35.5 kzge=200) RED CELL DISTRIBUTION WIDTH (BEAKER) (test 15.8 % 11.7-14.4 xwrv=537) PLATELET COUNT (BEAKER) (test nuaj=237) 667 K/CU MM 150-450 MEAN PLATELET VOLUME (BEAKER) (test uezs=986) 9.4 fL 9.4-12.3 NUCLEATED RED BLOOD CELLS (BEAKER) (test 0 /100 WBC 0-0 hzwh=103) NEUTROPHILS RELATIVE PERCENT (BEAKER) (test 77 % nbds=522) LYMPHOCYTES RELATIVE PERCENT (BEAKER) (test 13 % bjsl=498) MONOCYTES RELATIVE PERCENT (BEAKER) (test 7 % hkgn=021) EOSINOPHILS RELATIVE PERCENT (BEAKER) (test 2 % gyby=034) BASOPHILS RELATIVE PERCENT (BEAKER) (test 1 % jqef=406) NEUTROPHILS ABSOLUTE COUNT (BEAKER) (test 7.57 K/ L 1.56-6.13 khfg=825) LYMPHOCYTES ABSOLUTE COUNT (BEAKER) (test 1.23 K/ L 1.18-3.74 mtha=197) MONOCYTES ABSOLUTE COUNT (BEAKER) (test 0.69 K/ L 0.24-0.36 fstv=667) EOSINOPHILS ABSOLUTE COUNT (BEAKER) (test 0.16 K/ L 0.04-0.36 aqlr=688) BASOPHILS ABSOLUTE COUNT (BEAKER) (test 0.08 K/ L 0.01-0.08 fhsu=442) IMMATURE GRANULOCYTES-RELATIVE PERCENT (BEAKER) 1 % 0-1 (test yqjw=1384) CALCIUM, [id number] 06:38:00 Test Item Value Reference Range Comments CALCIUM IONIZED (BEAKER) (test gdnm=561) 1.07 mmol/L 1.12-1.27 PH, BLOOD (BEAKER) (test uksr=7235) 7.42 [id number] 06:08:00 Test Item Value Reference Range Comments PHOSPHORUS (BEAKER) (test evha=221) 4.3 mg/dL 2.3-4.7 [id number] 06:08:00 Test Item Value Reference Range Comments MAGNESIUM (BEAKER) (test hrmz=387) 2.4 mg/dL 1.6-2.6 BASIC METABOLIC [id number] 06:08:00 Test Item Value Reference Range Comments SODIUM (BEAKER) (test 138 meq/L 136-145 omvb=066) POTASSIUM (BEAKER) (test 4.0 meq/L 3.5-5.1 jhzz=056) CHLORIDE (BEAKER) (test 99 meq/L 98-107 cioh=035) CO2 (BEAKER) (test 29 meq/L 22-29 uwdp=946) BLOOD UREA NITROGEN 15 mg/dL 7-21 (BEAKER) (test nelk=750) CREATININE (BEAKER) (test 1.64 mg/dL 0.57-1.25 cseg=173) GLUCOSE RANDOM (BEAKER) 135 mg/dL 70-105 (test tqqt=186) CALCIUM (BEAKER) (test 9.5 mg/dL 8.4-10.2 ofxh=018) EGFR (BEAKER) (test 38 mL/min/1.73 sq m ESTIMATED GFR IS NOT sylc=1300) ACCURATE CREATININE CLEARANCE IN PREDICTING GLOMERULAR FILTRATION RATE. ESTIMATED GFR IS NOT APPLICABLE FOR DIALYSIS PATIENTS. POCT-GLUCOSE [id number] 21:13:00 Test Item Value Reference Range Comments POC-GLUCOSE METER (BEAKER) 145 mg/dL 70-110 TESTED AT [facility] [address] [facility] (test izrx=9894) [facility] [address] POCT-GLUCOSE [id number] 17:08:00 Test Item Value Reference Range Comments POC-GLUCOSE METER (BEAKER) 134 mg/dL 70-110 TESTED AT [place] [id number] [facility] (test thwj=8352) [facility] [address] POCT-GLUCOSE [id number] 11:44:00 Test Item Value Reference Range Comments POC-GLUCOSE METER (BEAKER) 159 mg/dL 70-110 TESTED AT [facility] [address] [facility] (test sdwe=5954) [facility] [address] POCT-GLUCOSE [id number] 08:07:00 Test Item Value Reference Range Comments POC-GLUCOSE METER (BEAKER) 152 mg/dL 70-110 TESTED AT [facility] [address] [facility] (test qekf=8381) [facility] [address] CALCIUM, [id number] 05:26:00 Test Item Value Reference Range Comments CALCIUM IONIZED (BEAKER) (test qszd=863) 1.10 mmol/L 1.12-1.27 PH, BLOOD (BEAKER) (test ppms=5797) 7.42 [id number] 05:05:00 Test Item Value Reference Range Comments PHOSPHORUS (BEAKER) (test pyec=070) 4.6 mg/dL 2.3-4.7 [id number] 05:05:00 Test Item Value Reference Range Comments MAGNESIUM (BEAKER) (test otwf=534) 1.6 mg/dL 1.6-2.6 COMPREHENSIVE METABOLIC [id number] 05:05:00 Test Item Value Reference Range Comments TOTAL PROTEIN (BEAKER) 6.9 gm/dL 6.0-8.3 (test ymom=334) ALBUMIN (BEAKER) (test 3.2 g/dL 3.5-5.0 hlts=8939) ALKALINE PHOSPHATASE 55 U/L 40-150 (BEAKER) (test qlye=875) BILIRUBIN TOTAL (BEAKER) 0.6 mg/dL 0.2-1.2 (test zzys=170) SODIUM (BEAKER) (test 139 meq/L 136-145 xjum=448) POTASSIUM (BEAKER) (test 3.9 meq/L 3.5-5.1 mibv=810) CHLORIDE (BEAKER) (test 100 meq/L 98-107 bzme=221) CO2 (BEAKER) (test 27 meq/L 22-29 gzlh=264) BLOOD UREA NITROGEN 15 mg/dL 7-21 (BEAKER) (test rxfk=992) CREATININE (BEAKER) (test 1.55 mg/dL 0.57-1.25 idbu=273) GLUCOSE RANDOM (BEAKER) 125 mg/dL 70-105 (test fzau=833) CALCIUM (BEAKER) (test 9.2 mg/dL 8.4-10.2 ouqs=406) AST (SGOT) (BEAKER) (test 16 U/L 5-34 ayat=600) ALT (SGPT) (BEAKER) (test 11 U/L 6-55 uhgw=184) EGFR (BEAKER) (test 40 mL/min/1.73 sq m ESTIMATED GFR IS NOT uajf=3722) ACCURATE CREATININE CLEARANCE IN PREDICTING GLOMERULAR FILTRATION RATE. ESTIMATED GFR IS NOT APPLICABLE FOR DIALYSIS PATIENTS. CBC W/PLT COUNT & AUTO [id number] 04:57:00 Test Item Value Reference Range Comments WHITE BLOOD CELL COUNT (BEAKER) (test ftiv=758) 10.8 K/ L 3.5-10.5 RED BLOOD CELL COUNT (BEAKER) (test tmvo=392) 2.57 M/ L 3.93-5.22 HEMOGLOBIN (BEAKER) (test mmvs=128) 7.9 GM/DL 11.2-15.7 HEMATOCRIT (BEAKER) (test rral=517) 25.2 % 34.1-44.9 MEAN CORPUSCULAR VOLUME (BEAKER) (test tgcp=382) 98.1 fL 79.4-94.8 MEAN CORPUSCULAR HEMOGLOBIN (BEAKER) (test 30.7 pg 25.6-32.2 eqyg=498) MEAN CORPUSCULAR HEMOGLOBIN CONC (BEAKER) (test 31.3 GM/DL 32.2-35.5 optl=798) RED CELL DISTRIBUTION WIDTH (BEAKER) (test 15.9 % 11.7-14.4 kwlg=161) PLATELET COUNT (BEAKER) (test ajpg=834) 623 K/CU MM 150-450 MEAN PLATELET VOLUME (BEAKER) (test bknr=199) 9.4 fL 9.4-12.3 NUCLEATED RED BLOOD CELLS (BEAKER) (test 0 /100 WBC 0-0 xday=407) NEUTROPHILS RELATIVE PERCENT (BEAKER) (test 79 % ufds=719) LYMPHOCYTES RELATIVE PERCENT (BEAKER) (test 12 % lxrj=400) MONOCYTES RELATIVE PERCENT (BEAKER) (test 7 % uzfz=230) EOSINOPHILS RELATIVE PERCENT (BEAKER) (test 2 % pdlf=840) BASOPHILS RELATIVE PERCENT (BEAKER) (test 1 % borp=304) NEUTROPHILS ABSOLUTE COUNT (BEAKER) (test 8.49 K/ L 1.56-6.13 xufg=875) LYMPHOCYTES ABSOLUTE COUNT (BEAKER) (test 1.28 K/ L 1.18-3.74 gkhq=385) MONOCYTES ABSOLUTE COUNT (BEAKER) (test 0.74 K/ L 0.24-0.36 femr=351) EOSINOPHILS ABSOLUTE COUNT (BEAKER) (test 0.18 K/ L 0.04-0.36 vzuc=202) BASOPHILS ABSOLUTE COUNT (BEAKER) (test 0.05 K/ L 0.01-0.08 enfp=129) IMMATURE GRANULOCYTES-RELATIVE PERCENT (BEAKER) 1 % 0-1 (test jiib=2210) POCT-GLUCOSE [id number] 01:29:00 Test Item Value Reference Range Comments POC-GLUCOSE METER (BEAKER) 182 mg/dL 70-110 TESTED AT [address] (test qdji=3630) [place] [address] POCT-GLUCOSE [id number] 22:32:00 Test Item Value Reference Range Comments POC-GLUCOSE METER (BEAKER) 204 mg/dL 70-110 TESTED AT [address] (test rqee=0774) [place] [address] POCT-GLUCOSE [id number] 18:53:00 Test Item Value Reference Range Comments POC-GLUCOSE METER (BEAKER) 154 mg/dL 70-110 TESTED AT [address] (test kbde=2655) [place] [id number] POCT-GLUCOSE [id number] 15:50:00 Test Item Value Reference Range Comments POC-GLUCOSE METER (BEAKER) 172 mg/dL 70-110 TESTED AT [address] (test lleb=3399) [place] [address] B-TYPE NATRIURETIC FACTOR (BNP)2017-08-01 15:41:00 Test Item Value Reference Range Comments B-TYPE NATRIURETIC PEPTIDE (BEAKER) (test 1253 pg/mL 0-100 jryw=678) RAD, CHEST, 1 VIEW, NON [id number] 15:00:00Reason for exam:->SOBShould this be performed at the bedside?->YesFINAL REPORT Chest one view compared to July 28, 2017 Discussion: There is cardiac prominence. Lungs are grossly clear. No effusion or pneumothorax. There is either hiatal hernia or aortic tortuosity. IMPRESSIONS: No significant change. Signed: Tony Hsu MDReport Verified Date/Time: 08/01/2017 15:00:05 Reading Location: [facility] [id number] Consult Reading Room Electronicallysigned by: TONY HSU M.D. on 08/01/2017 03:00 PMPOCT-GLUCOSE [id number] 09:28:00 Test Item Value Reference Range Comments POC-GLUCOSE METER (BEAKER) 155 mg/dL 70-110 TESTED AT [facility] [address] [facility] (test iqkj=8346) [facility] [address] BASIC METABOLIC [id number] 08:00:00 Test Item Value Reference Range Comments SODIUM (BEAKER) (test 138 meq/L 136-145 yxwu=095) POTASSIUM (BEAKER) (test 3.8 meq/L 3.5-5.1 lrse=831) CHLORIDE (BEAKER) (test 100 meq/L 98-107 bsqe=379) CO2 (BEAKER) (test 27 meq/L 22-29 nluy=285) BLOOD UREA NITROGEN 14 mg/dL 7-21 (BEAKER) (test qdgo=269) CREATININE (BEAKER) (test 1.47 mg/dL 0.57-1.25 kzox=190) GLUCOSE RANDOM (BEAKER) 150 mg/dL 70-105 (test rgzz=504) CALCIUM (BEAKER) (test 9.0 mg/dL 8.4-10.2 vhcx=081) EGFR (BEAKER) (test 43 mL/min/1.73 sq m ESTIMATED GFR IS NOT izkh=6496) ACCURATE CREATININE CLEARANCE IN PREDICTING GLOMERULAR FILTRATION RATE. ESTIMATED GFR IS NOT APPLICABLE FOR DIALYSIS PATIENTS. CBC W/PLT COUNT & AUTO [id number] 07:54:00 Test Item Value Reference Range Comments WHITE BLOOD CELL COUNT (BEAKER) (test pemq=097) 12.4 K/ L 3.5-10.5 RED BLOOD CELL COUNT (BEAKER) (test eboc=550) 2.57 M/ L 3.93-5.22 HEMOGLOBIN (BEAKER) (test epfm=092) 7.7 GM/DL 11.2-15.7 HEMATOCRIT (BEAKER) (test okuj=079) 25.0 % 34.1-44.9 MEAN CORPUSCULAR VOLUME (BEAKER) (test xixa=327) 97.3 fL 79.4-94.8 MEAN CORPUSCULAR HEMOGLOBIN (BEAKER) (test 30.0 pg 25.6-32.2 xctv=254) MEAN CORPUSCULAR HEMOGLOBIN CONC (BEAKER) (test 30.8 GM/DL 32.2-35.5 oeqp=235) RED CELL DISTRIBUTION WIDTH (BEAKER) (test 15.8 % 11.7-14.4 fams=127) PLATELET COUNT (BEAKER) (test tzjf=720) 582 K/CU MM 150-450 MEAN PLATELET VOLUME (BEAKER) (test bbff=527) 9.5 fL 9.4-12.3 NUCLEATED RED BLOOD CELLS (BEAKER) (test 0 /100 WBC 0-0 jjrp=666) NEUTROPHILS RELATIVE PERCENT (BEAKER) (test 82 % wbrg=963) LYMPHOCYTES RELATIVE PERCENT (BEAKER) (test 10 % mwoh=876) MONOCYTES RELATIVE PERCENT (BEAKER) (test 6 % dsfa=505) EOSINOPHILS RELATIVE PERCENT (BEAKER) (test 1 % yhdm=740) BASOPHILS RELATIVE PERCENT (BEAKER) (test 1 % fdwx=502) NEUTROPHILS ABSOLUTE COUNT (BEAKER) (test 10.08 K/ L 1.56-6.13 vbel=637) LYMPHOCYTES ABSOLUTE COUNT (BEAKER) (test 1.19 K/ L 1.18-3.74 rirj=877) MONOCYTES ABSOLUTE COUNT (BEAKER) (test 0.74 K/ L 0.24-0.36 pzyn=215) EOSINOPHILS ABSOLUTE COUNT (BEAKER) (test 0.16 K/ L 0.04-0.36 cdcn=461) BASOPHILS ABSOLUTE COUNT (BEAKER) (test 0.10 K/ L 0.01-0.08 ekgv=184) IMMATURE GRANULOCYTES-RELATIVE PERCENT (BEAKER) 1 % 0-1 (test nrms=5203) POCT-GLUCOSE [id number] 21:34:00 Test Item Value Reference Range Comments POC-GLUCOSE METER (BEAKER) 153 mg/dL 70-110 TESTED AT [address] (test rjwb=0962) [facility] [address] POCT-GLUCOSE [id number] 17:34:00 Test Item Value Reference Range Comments POC-GLUCOSE METER (BEAKER) 165 mg/dL 70-110 TESTED AT [address] (test jokj=4034) [facility] [address] POCT-GLUCOSE [id number] 14:33:00 Test Item Value Reference Range Comments POC-GLUCOSE METER (BEAKER) 208 mg/dL 70-110 TESTED AT [address] (test hgzn=2035) [place] [id number] POCT-GLUCOSE [id number] 12:54:00 Test Item Value Reference Range Comments POC-GLUCOSE METER (BEAKER) 218 mg/dL 70-110 TESTED AT [address] (test asxj=9281) [place] [address] POCT-GLUCOSE [id number] 10:34:00 Test Item Value Reference Range Comments POC-GLUCOSE METER (BEAKER) 204 mg/dL 70-110 TESTED AT [address] (test wxyw=5055) [place] [address] POCT-GLUCOSE [id number] 08:41:00 Test Item Value Reference Range Comments POC-GLUCOSE METER (BEAKER) 201 mg/dL 70-110 TESTED AT [address] (test gjrq=8688) [place] [address] [id number] 05:54:00 Test Item Value Reference Range Comments MAGNESIUM (BEAKER) (test ihyy=451) 1.8 mg/dL 1.6-2.6 BASIC METABOLIC [id number] 05:54:00 Test Item Value Reference Range Comments SODIUM (BEAKER) (test 138 meq/L 136-145 qnhw=094) POTASSIUM (BEAKER) (test 3.6 meq/L 3.5-5.1 jrst=985) CHLORIDE (BEAKER) (test 100 meq/L 98-107 mzwh=173) CO2 (BEAKER) (test 25 meq/L 22-29 dwji=805) BLOOD UREA NITROGEN 14 mg/dL 7-21 (BEAKER) (test vjqn=294) CREATININE (BEAKER) (test 1.42 mg/dL 0.57-1.25 lfvd=468) GLUCOSE RANDOM (BEAKER) 145 mg/dL 70-105 (test vbtq=650) CALCIUM (BEAKER) (test 9.4 mg/dL 8.4-10.2 jwjh=962) EGFR (BEAKER) (test 44 mL/min/1.73 sq m ESTIMATED GFR IS NOT picl=4305) ACCURATE CREATININE CLEARANCE IN PREDICTING GLOMERULAR FILTRATION RATE. ESTIMATED GFR IS NOT APPLICABLE FOR DIALYSIS PATIENTS. CBC (HEMOGRAM ONLY)2017-07-31 05:42:00 Test Item Value Reference Range Comments WHITE BLOOD CELL COUNT (BEAKER) (test difc=052) 13.3 K/ L 3.5-10.5 RED BLOOD CELL COUNT (BEAKER) (test czut=584) 2.65 M/ L 3.93-5.22 HEMOGLOBIN (BEAKER) (test jdvv=158) 7.9 GM/DL 11.2-15.7 HEMATOCRIT (BEAKER) (test yiqf=817) 25.9 % 34.1-44.9 MEAN CORPUSCULAR VOLUME (BEAKER) (test amvh=138) 97.7 fL 79.4-94.8 MEAN CORPUSCULAR HEMOGLOBIN (BEAKER) (test 29.8 pg 25.6-32.2 obgz=535) MEAN CORPUSCULAR HEMOGLOBIN CONC (BEAKER) (test 30.5 GM/DL 32.2-35.5 riuk=569) RED CELL DISTRIBUTION WIDTH (BEAKER) (test 15.3 % 11.7-14.4 pnbk=470) PLATELET COUNT (BEAKER) (test gkru=732) 580 K/CU MM 150-450 MEAN PLATELET VOLUME (BEAKER) (test udnr=468) 9.7 fL 9.4-12.3 NUCLEATED RED BLOOD CELLS (BEAKER) (test 0 /100 WBC 0-0 efhk=631) POCT-GLUCOSE [id number] 21:21:00 Test Item Value Reference Range Comments POC-GLUCOSE METER (BEAKER) 206 mg/dL 70-110 TESTED AT [address] (test gjpt=0477) [facility] [address] POCT-GLUCOSE [id number] 17:50:00 Test Item Value Reference Range Comments POC-GLUCOSE METER (BEAKER) 160 mg/dL 70-110 TESTED AT [address] (test uzey=6851) [facility] [address] POCT-GLUCOSE [id number] 12:12:00 Test Item Value Reference Range Comments POC-GLUCOSE METER (BEAKER) 214 mg/dL 70-110 TESTED AT [address] (test kkxw=5095) [facility] [address] POCT-GLUCOSE [id number] 07:59:00 Test Item Value Reference Range Comments POC-GLUCOSE METER (BEAKER) 146 mg/dL 70-110 TESTED AT [facility] [address] (test mbjh=2399) [place] [address] CALCIUM, [id number] 07:23:00 Test Item Value Reference Range Comments CALCIUM IONIZED (BEAKER) (test odjs=666) 1.11 mmol/L 1.12-1.27 PH, BLOOD (BEAKER) (test slyc=1136) 7.42 [id number] 07:07:00 Test Item Value Reference Range Comments PHOSPHORUS (BEAKER) (test zfvk=875) 3.5 mg/dL 2.3-4.7 [id number] 07:07:00 Test Item Value Reference Range Comments MAGNESIUM (BEAKER) (test vjcj=158) 1.8 mg/dL 1.6-2.6 COMPREHENSIVE METABOLIC [id number] 07:07:00 Test Item Value Reference Range Comments TOTAL PROTEIN (BEAKER) 6.7 gm/dL 6.0-8.3 (test omaj=709) ALBUMIN (BEAKER) (test 3.1 g/dL 3.5-5.0 byhg=6787) ALKALINE PHOSPHATASE 53 U/L 40-150 (BEAKER) (test grzr=754) BILIRUBIN TOTAL (BEAKER) 0.6 mg/dL 0.2-1.2 (test vcjd=376) SODIUM (BEAKER) (test 139 meq/L 136-145 eisw=004) POTASSIUM (BEAKER) (test 4.0 meq/L 3.5-5.1 byba=773) CHLORIDE (BEAKER) (test 103 meq/L 98-107 haoc=305) CO2 (BEAKER) (test 27 meq/L 22-29 txmw=528) BLOOD UREA NITROGEN 16 mg/dL 7-21 (BEAKER) (test etfd=335) CREATININE (BEAKER) (test 1.34 mg/dL 0.57-1.25 lcno=515) GLUCOSE RANDOM (BEAKER) 116 mg/dL 70-105 (test hzro=116) CALCIUM (BEAKER) (test 9.2 mg/dL 8.4-10.2 bykc=838) AST (SGOT) (BEAKER) (test 15 U/L 5-34 wenu=796) ALT (SGPT) (BEAKER) (test 11 U/L 6-55 dfbo=998) EGFR (BEAKER) (test 47 mL/min/1.73 sq m ESTIMATED GFR IS NOT kkmp=2748) ACCURATE CREATININE CLEARANCE IN PREDICTING GLOMERULAR FILTRATION RATE. ESTIMATED GFR IS NOT APPLICABLE FOR DIALYSIS PATIENTS. CBC W/PLT COUNT & AUTO [id number] 06:52:00 Test Item Value Reference Range Comments WHITE BLOOD CELL COUNT (BEAKER) (test hujs=800) 12.8 K/ L 3.5-10.5 RED BLOOD CELL COUNT (BEAKER) (test apzd=983) 2.43 M/ L 3.93-5.22 HEMOGLOBIN (BEAKER) (test xmta=344) 7.2 GM/DL 11.2-15.7 HEMATOCRIT (BEAKER) (test njlc=849) 23.8 % 34.1-44.9 MEAN CORPUSCULAR VOLUME (BEAKER) (test dxut=890) 97.9 fL 79.4-94.8 MEAN CORPUSCULAR HEMOGLOBIN (BEAKER) (test 29.6 pg 25.6-32.2 dnqp=277) MEAN CORPUSCULAR HEMOGLOBIN CONC (BEAKER) (test 30.3 GM/DL 32.2-35.5 roui=202) RED CELL DISTRIBUTION WIDTH (BEAKER) (test 15.0 % 11.7-14.4 uvht=248) PLATELET COUNT (BEAKER) (test xhmn=239) 456 K/CU MM 150-450 MEAN PLATELET VOLUME (BEAKER) (test ygas=494) 10.3 fL 9.4-12.3 NUCLEATED RED BLOOD CELLS (BEAKER) (test 0 /100 WBC 0-0 dofz=821) NEUTROPHILS RELATIVE PERCENT (BEAKER) (test 82 % jahs=891) LYMPHOCYTES RELATIVE PERCENT (BEAKER) (test 9 % guqi=791) MONOCYTES RELATIVE PERCENT (BEAKER) (test 6 % pfnh=061) EOSINOPHILS RELATIVE PERCENT (BEAKER) (test 2 % bpwb=684) BASOPHILS RELATIVE PERCENT (BEAKER) (test 0 % zosf=184) NEUTROPHILS ABSOLUTE COUNT (BEAKER) (test 10.52 K/ L 1.56-6.13 xeso=265) LYMPHOCYTES ABSOLUTE COUNT (BEAKER) (test 1.19 K/ L 1.18-3.74 hkvf=618) MONOCYTES ABSOLUTE COUNT (BEAKER) (test 0.73 K/ L 0.24-0.36 krnr=106) EOSINOPHILS ABSOLUTE COUNT (BEAKER) (test 0.22 K/ L 0.04-0.36 cdso=650) BASOPHILS ABSOLUTE COUNT (BEAKER) (test 0.04 K/ L 0.01-0.08 ugpr=670) IMMATURE GRANULOCYTES-RELATIVE PERCENT (BEAKER) 1 % 0-1 (test ftbv=3869) POCT-GLUCOSE [id number] 21:47:00 Test Item Value Reference Range Comments POC-GLUCOSE METER (BEAKER) 106 mg/dL 70-110 TESTED AT [address] (test brir=8680) [place] [address] POCT-GLUCOSE [id number] 18:50:00 Test Item Value Reference Range Comments POC-GLUCOSE METER (BEAKER) 175 mg/dL 70-110 TESTED AT [address] (test rcnq=3461) [place] [address] [id number] 15:18:00 Test Item Value Reference Range Comments POTASSIUM (BEAKER) (test uzll=345) 3.7 meq/L 3.5-5.1 [id number] 15:18:00 Test Item Value Reference Range Comments MAGNESIUM (BEAKER) (test omuo=226) 2.2 mg/dL 1.6-2.6 POCT-GLUCOSE [id number] 11:48:00 Test Item Value Reference Range Comments POC-GLUCOSE METER (BEAKER) 131 mg/dL 70-110 TESTED AT [address] (test fhmx=3959) [place] [address] BLOOD GAS, [id number] 11:46:00 Test Item Value Reference Range Comments PH ARTERIAL (BEAKER) (test ckom=040) 7.43 7.35-7.45 PCO2 ARTERIAL (BEAKER) (test yhbb=237) 46 mmHg 35-45 PO2 ARTERIAL (BEAKER) (test kkdt=878) 83 mmHg 80-90 O2 SATURATION ARTERIAL (BEAKER) (test dfse=629) 96.5 % 96.0-97.0 HCO3 ARTERIAL (BEAKER) (test yupy=865) 30 mmol/L 21-29 BASE EXCESS ARTERIAL (BEAKER) (test kdlm=870) 4.8 mmol/L -2.0-3.0 PATIENT TEMPERATURE (BEAKER) (test mlue=0381) 36.9 C FIO2 (BEAKER) (test zeji=7002) 36.0 % POCT-GLUCOSE [id number] 08:29:00 Test Item Value Reference Range Comments POC-GLUCOSE METER (BEAKER) 129 mg/dL 70-110 TESTED AT [facility] [address] [facility] (test twaa=9481) [place] [address] CALCIUM, [id number] 04:18:00 Test Item Value Reference Range Comments CALCIUM IONIZED (BEAKER) (test yycg=778) 1.11 mmol/L 1.12-1.27 PH, BLOOD (BEAKER) (test tsfb=4519) 7.40 B-TYPE NATRIURETIC FACTOR (BNP)2017-07-29 04:06:00 Test Item Value Reference Range Comments B-TYPE NATRIURETIC PEPTIDE (BEAKER) (test 982 pg/mL 0-100 otzo=185) [id number] 03:59:00 Test Item Value Reference Range Comments PHOSPHORUS (BEAKER) (test pybp=763) 3.6 mg/dL 2.3-4.7 [id number] 03:59:00 Test Item Value Reference Range Comments MAGNESIUM (BEAKER) (test ockw=890) 1.9 mg/dL 1.6-2.6 BASIC METABOLIC [id number] 03:59:00 Test Item Value Reference Range Comments SODIUM (BEAKER) (test 141 meq/L 136-145 egti=178) POTASSIUM (BEAKER) (test 3.1 meq/L 3.5-5.1 cmkh=412) CHLORIDE (BEAKER) (test 103 meq/L 98-107 zdmi=072) CO2 (BEAKER) (test 26 meq/L 22-29 avqc=538) BLOOD UREA NITROGEN 17 mg/dL 7-21 (BEAKER) (test nzak=952) CREATININE (BEAKER) (test 1.43 mg/dL 0.57-1.25 qedl=387) GLUCOSE RANDOM (BEAKER) 110 mg/dL 70-105 (test ushk=925) CALCIUM (BEAKER) (test 9.0 mg/dL 8.4-10.2 fhrj=759) EGFR (BEAKER) (test 44 mL/min/1.73 sq m ESTIMATED GFR IS NOT wyqu=5039) ACCURATE CREATININE CLEARANCE IN PREDICTING GLOMERULAR FILTRATION RATE. ESTIMATED GFR IS NOT APPLICABLE FOR DIALYSIS PATIENTS. CBC (HEMOGRAM ONLY)2017-07-29 03:51:00 Test Item Value Reference Range Comments WHITE BLOOD CELL COUNT (BEAKER) (test flfo=397) 12.2 K/ L 3.5-10.5 RED BLOOD CELL COUNT (BEAKER) (test dszo=296) 2.48 M/ L 3.93-5.22 HEMOGLOBIN (BEAKER) (test yxrk=499) 7.4 GM/DL 11.2-15.7 HEMATOCRIT (BEAKER) (test mtor=165) 24.2 % 34.1-44.9 MEAN CORPUSCULAR VOLUME (BEAKER) (test sqox=597) 97.6 fL 79.4-94.8 MEAN CORPUSCULAR HEMOGLOBIN (BEAKER) (test 29.8 pg 25.6-32.2 jlcu=943) MEAN CORPUSCULAR HEMOGLOBIN CONC (BEAKER) (test 30.6 GM/DL 32.2-35.5 xusp=194) RED CELL DISTRIBUTION WIDTH (BEAKER) (test 15.1 % 11.7-14.4 vzwz=993) PLATELET COUNT (BEAKER) (test ulef=806) 410 K/CU MM 150-450 MEAN PLATELET VOLUME (BEAKER) (test uofd=673) 10.2 fL 9.4-12.3 NUCLEATED RED BLOOD CELLS (BEAKER) (test 0 /100 WBC 0-0 qfoc=689) POCT-GLUCOSE [id number] 23:55:00 Test Item Value Reference Range Comments POC-GLUCOSE METER (BEAKER) 164 mg/dL 70-110 TESTED AT [facility] [address] [facility] (test xxfl=1621) [facility] [address] HERPES VIRUS ANTIBODY, [id number] 11:02:00 Test Item Value Reference Range Comments HERPES VIRUS IGM (BEAKER) (test pecm=1768) Negative HSV IgM 1=NEGATIVEHSV IgM 2=NEGATIVETOXOPLASMA GONDII ANTIBODY, [id number] 11 :02:00 Test Item Value Reference Range Comments TOXOPLASMA IGM ANTIBODY (BEAKER) (test czpm=480) Negative RAD, CHEST, 1 VIEW, NON [id number] 10:48:00Reason for exam:->acute respiratory insufficiencyShould this be [...] Date/Time: 07/28/2017 10:48:24 Reading Location: [facility] Radiology Reading Room [id number] 05:13:00 Test Item Value Reference Range Comments PHOSPHORUS (BEAKER) (test hfgm=867) 3.3 mg/dL 2.3-4.7 [id number] 05:13:00 Test Item Value Reference Range Comments MAGNESIUM (BEAKER) (test gmzd=567) 1.9 mg/dL 1.6-2.6 HEPATIC FUNCTION [id number] 05:13:00 Test Item Value Reference Range Comments TOTAL PROTEIN (BEAKER) (test ekpv=307) 7.5 gm/dL 6.0-8.3 ALBUMIN (BEAKER) (test omox=7520) 3.6 g/dL 3.5-5.0 BILIRUBIN TOTAL (BEAKER) (test eakx=950) 0.9 mg/dL 0.2-1.2 BILIRUBIN DIRECT (BEAKER) (test llls=796) 0.4 mg/dL 0.1-0.5 ALKALINE PHOSPHATASE (BEAKER) (test xphu=215) 66 U/L 40-150 AST (SGOT) (BEAKER) (test uulm=072) 21 U/L 5-34 ALT (SGPT) (BEAKER) (test koyd=626) 17 U/L 6-55 COMPREHENSIVE METABOLIC [id number] 05:13:00 Test Item Value Reference Range Comments TOTAL PROTEIN (BEAKER) 7.5 gm/dL 6.0-8.3 (test kugq=119) ALBUMIN (BEAKER) (test 3.6 g/dL 3.5-5.0 hxck=6276) ALKALINE PHOSPHATASE 66 U/L 40-150 (BEAKER) (test otqf=974) BILIRUBIN TOTAL (BEAKER) 0.9 mg/dL 0.2-1.2 (test dxfl=526) SODIUM (BEAKER) (test 143 meq/L 136-145 jade=783) POTASSIUM (BEAKER) (test 3.5 meq/L 3.5-5.1 gkfg=744) CHLORIDE (BEAKER) (test 105 meq/L 98-107 rbdt=942) CO2 (BEAKER) (test 25 meq/L 22-29 xcib=847) BLOOD UREA NITROGEN 18 mg/dL 7-21 (BEAKER) (test tyzg=423) CREATININE (BEAKER) (test 1.43 mg/dL 0.57-1.25 kfvq=305) GLUCOSE RANDOM (BEAKER) 130 mg/dL 70-105 (test lyms=311) CALCIUM (BEAKER) (test 9.6 mg/dL 8.4-10.2 xbir=070) AST (SGOT) (BEAKER) (test 21 U/L 5-34 apuh=231) ALT (SGPT) (BEAKER) (test 17 U/L 6-55 mbsx=777) EGFR (BEAKER) (test 44 mL/min/1.73 sq m ESTIMATED GFR IS NOT cqct=3499) ACCURATE CREATININE CLEARANCE IN PREDICTING GLOMERULAR FILTRATION RATE. ESTIMATED GFR IS NOT APPLICABLE FOR DIALYSIS PATIENTS. LACTATE DEHYDROGENASE (LDH)2017-07-28 05:13:00 Test Item Value Reference Range Comments LACTATE DEHYDROGENASE (BEAKER) (test idwf=991) 639 U/L 125-220 CBC W/PLT COUNT & AUTO [id number] 04:57:00 Test Item Value Reference Range Comments WHITE BLOOD CELL COUNT (BEAKER) (test lvvb=544) 13.6 K/ L 3.5-10.5 RED BLOOD CELL COUNT (BEAKER) (test dyjb=875) 2.86 M/ L 3.93-5.22 HEMOGLOBIN (BEAKER) (test atvn=295) 8.5 GM/DL 11.2-15.7 HEMATOCRIT (BEAKER) (test gwbz=444) 28.9 % 34.1-44.9 MEAN CORPUSCULAR VOLUME (BEAKER) (test kvur=748) 101.0 fL 79.4-94.8 MEAN CORPUSCULAR HEMOGLOBIN (BEAKER) (test 29.7 pg 25.6-32.2 qwls=295) MEAN CORPUSCULAR HEMOGLOBIN CONC (BEAKER) (test 29.4 GM/DL 32.2-35.5 evdh=002) RED CELL DISTRIBUTION WIDTH (BEAKER) (test 15.2 % 11.7-14.4 qfcu=621) PLATELET COUNT (BEAKER) (test fhni=978) 375 K/CU MM 150-450 MEAN PLATELET VOLUME (BEAKER) (test gtak=561) 10.7 fL 9.4-12.3 NUCLEATED RED BLOOD CELLS (BEAKER) (test 0 /100 WBC 0-0 slss=209) NEUTROPHILS RELATIVE PERCENT (BEAKER) (test 82 % ljij=947) LYMPHOCYTES RELATIVE PERCENT (BEAKER) (test 9 % gpwr=398) MONOCYTES RELATIVE PERCENT (BEAKER) (test 6 % aodz=074) EOSINOPHILS RELATIVE PERCENT (BEAKER) (test 2 % bjwu=792) BASOPHILS RELATIVE PERCENT (BEAKER) (test 1 % ibol=230) NEUTROPHILS ABSOLUTE COUNT (BEAKER) (test 11.11 K/ L 1.56-6.13 kuom=204) LYMPHOCYTES ABSOLUTE COUNT (BEAKER) (test 1.17 K/ L 1.18-3.74 boyg=247) MONOCYTES ABSOLUTE COUNT (BEAKER) (test 0.83 K/ L 0.24-0.36 laur=877) EOSINOPHILS ABSOLUTE COUNT (BEAKER) (test 0.25 K/ L 0.04-0.36 uofj=731) BASOPHILS ABSOLUTE COUNT (BEAKER) (test 0.07 K/ L 0.01-0.08 yxuo=774) IMMATURE GRANULOCYTES-RELATIVE PERCENT (BEAKER) 1 % 0-1 (test gqbi=7477) OCCULT BLOOD, [id number] 01:02:00 Test Item Value Reference Range Comments FECAL OCCULT BLOOD (BEAKER) (test hvrg=744) Negative Negative POCT-GLUCOSE [id number] 00:46:00 Test Item Value Reference Range Comments POC-GLUCOSE METER (BEAKER) 149 mg/dL 70-110 TESTED AT [facility] [address] [facility] (test fxgw=1804) [facility] [address] C. DIFFICILE GDH [id number] 19:51:00 Test Item Value Reference Range Comments CDT TOXIN (test Negative Negative gzsf=[id number]) CDT GDH ANTIGEN (test Negative Negative No indication of Clostridium sfoe=[id number]) difficile infection and no colonization. Discontinue enteric isolation and therapy. Testing performed by [employer] Rapid Cassette Assay. For GDH, published sensitivity of the assay is 98.7% compared to cytotoxicity testing. For Toxin AB, published sensitivity is 87.8% and specificity 99.4% compared to cytotoxicity testing.Verification of kit performance was done by the [facility] prior to clinical use.POCT-GLUCOSE [id number] 18:11:00 Test Item Value Reference Range Comments POC-GLUCOSE METER (BEAKER) 201 mg/dL 70-110 TESTED AT [address] (test slmc=3374) [place] [address] BLOOD GAS, [id number] 17:03:00 Test Item Value Reference Range Comments PH ARTERIAL (BEAKER) (test kjyr=294) 7.41 7.35-7.45 PCO2 ARTERIAL (BEAKER) (test xaav=514) 45 mmHg 35-45 PO2 ARTERIAL (BEAKER) (test gjtu=157) 94 mmHg 80-90 O2 SATURATION ARTERIAL (BEAKER) (test eqyc=754) 97.3 % 96.0-97.0 HCO3 ARTERIAL (BEAKER) (test xpkj=016) 28 mmol/L 21-29 BASE EXCESS ARTERIAL (BEAKER) (test vyjl=620) 2.3 mmol/L -2.0-3.0 PATIENT TEMPERATURE (BEAKER) (test jpzj=3482) 36.6 C FIO2 (BEAKER) (test qxlw=8613) 40.0 % POCT-GLUCOSE [id number] 12:44:00 Test Item Value Reference Range Comments POC-GLUCOSE METER (BEAKER) 117 mg/dL 70-110 TESTED AT [address] (test ipno=7916) [place] [address] B-TYPE NATRIURETIC FACTOR (BNP)2017-07-27 11:13:00 Test Item Value Reference Range Comments B-TYPE NATRIURETIC PEPTIDE (BEAKER) (test 1198 pg/mL 0-100 qogx=592) LACTIC ACID, VENOUS, WHOLE [id number] 11:12:00 Test Item Value Reference Range Comments LACTATE BLOOD VENOUS (2) (BEAKER) (test 0.7 mmol/L 0.5-2.2 ktho=3251) Effective 08/06/2015: Units/Reference Range ChangeNew: 0.5-2.2 mmol/L Previous: 5 -20 mg/dLOXYGEN SATURATION, [id number] 10:28:00 Test Item Value Reference Range Comments O2 SATURATION (MEASURED) (BEAKER) (test zdfm=1084) 59.6 % RAD, CHEST, 1 VIEW, NON [id number] 08:23:00Reason for exam:->acute respiratory insufficiencyShould this be [...] Verified Date/Time: 07/27/2017 08:23 :08 Reading Location: [facility] Radiology Reading Room POCT-GLUCOSE [id number] 07:53:00 Test Item Value Reference Range Comments POC-GLUCOSE METER (BEAKER) 124 mg/dL 70-110 TESTED AT [facility] [address] [place] [address] (test oebe=5949) [facility] [address] BASIC METABOLIC [id number] 06:33:00 Test Item Value Reference Range Comments SODIUM (BEAKER) (test 144 meq/L 136-145 tljq=048) POTASSIUM (BEAKER) (test 3.8 meq/L 3.5-5.1 vrux=004) CHLORIDE (BEAKER) (test 109 meq/L 98-107 przd=948) CO2 (BEAKER) (test 24 meq/L 22-29 cyxf=341) BLOOD UREA NITROGEN 20 mg/dL 7-21 (BEAKER) (test qfnh=770) CREATININE (BEAKER) (test 1.40 mg/dL 0.57-1.25 zulv=093) GLUCOSE RANDOM (BEAKER) 111 mg/dL 70-105 (test fzyh=372) CALCIUM (BEAKER) (test 8.8 mg/dL 8.4-10.2 yhuu=045) EGFR (BEAKER) (test 45 mL/min/1.73 sq m ESTIMATED GFR IS NOT fvbl=0423) ACCURATE CREATININE CLEARANCE IN PREDICTING GLOMERULAR FILTRATION RATE. ESTIMATED GFR IS NOT APPLICABLE FOR DIALYSIS PATIENTS. [id number] 06:24:00 Test Item Value Reference Range Comments PHOSPHORUS (BEAKER) (test uanh=423) 3.3 mg/dL 2.3-4.7 BASIC METABOLIC [id number] 06:24:00 Test Item Value Reference Range Comments SODIUM (BEAKER) (test 145 meq/L 136-145 qfvw=637) POTASSIUM (BEAKER) (test 3.8 meq/L 3.5-5.1 yqdo=104) CHLORIDE (BEAKER) (test 110 meq/L 98-107 xgim=769) CO2 (BEAKER) (test 24 meq/L 22-29 qecq=655) BLOOD UREA NITROGEN 21 mg/dL 7-21 (BEAKER) (test eljb=253) CREATININE (BEAKER) (test 1.39 mg/dL 0.57-1.25 ggmo=037) GLUCOSE RANDOM (BEAKER) 112 mg/dL 70-105 (test hwgm=762) CALCIUM (BEAKER) (test 8.9 mg/dL 8.4-10.2 kpws=917) EGFR (BEAKER) (test 45 mL/min/1.73 sq m ESTIMATED GFR IS NOT cgzj=0088) ACCURATE CREATININE CLEARANCE IN PREDICTING GLOMERULAR FILTRATION RATE. ESTIMATED GFR IS NOT APPLICABLE FOR DIALYSIS PATIENTS. [id number] 03:27:00 Test Item Value Reference Range Comments PROCALCITONIN (BEAKER) (test xeie=3368) 0.28 ng/mL <0.05 SEPSIS RISK (ng/mL)Low: 0.05-0.50Intermediate: 0.51-2.00High: & gt;=2.01LACTATE DEHYDROGENASE (LDH)2017-07-27 03:07:00 Test Item Value Reference Range Comments LACTATE DEHYDROGENASE (BEAKER) (test yigw=143) 615 U/L 125-220 HEPATIC FUNCTION [id number] 03:07:00 Test Item Value Reference Range Comments TOTAL PROTEIN (BEAKER) (test lyid=051) 6.8 gm/dL 6.0-8.3 ALBUMIN (BEAKER) (test efcv=5168) 3.2 g/dL 3.5-5.0 BILIRUBIN TOTAL (BEAKER) (test ning=556) 0.9 mg/dL 0.2-1.2 BILIRUBIN DIRECT (BEAKER) (test psfr=897) 0.5 mg/dL 0.1-0.5 ALKALINE PHOSPHATASE (BEAKER) (test yvam=154) 58 U/L 40-150 AST (SGOT) (BEAKER) (test xpqf=725) 21 U/L 5-34 ALT (SGPT) (BEAKER) (test upwt=020) 15 U/L 6-55 CALCIUM, [id number] 02:57:00 Test Item Value Reference Range Comments CALCIUM IONIZED (BEAKER) (test wpdq=045) 1.14 mmol/L 1.12-1.27 PH, BLOOD (BEAKER) (test jmhp=0613) 7.42 CBC W/PLT COUNT & AUTO [id number] 02:56:00 Test Item Value Reference Range Comments WHITE BLOOD CELL COUNT (BEAKER) (test ztcd=467) 12.4 K/ L 3.5-10.5 RED BLOOD CELL COUNT (BEAKER) (test mxrl=525) 2.50 M/ L 3.93-5.22 HEMOGLOBIN (BEAKER) (test bylm=400) 7.4 GM/DL 11.2-15.7 HEMATOCRIT (BEAKER) (test mktt=681) 24.7 % 34.1-44.9 MEAN CORPUSCULAR VOLUME (BEAKER) (test ejhn=550) 98.8 fL 79.4-94.8 MEAN CORPUSCULAR HEMOGLOBIN (BEAKER) (test 29.6 pg 25.6-32.2 bvaa=314) MEAN CORPUSCULAR HEMOGLOBIN CONC (BEAKER) (test 30.0 GM/DL 32.2-35.5 tucw=152) RED CELL DISTRIBUTION WIDTH (BEAKER) (test 15.1 % 11.7-14.4 vynz=787) PLATELET COUNT (BEAKER) (test pidr=518) 233 K/CU MM 150-450 MEAN PLATELET VOLUME (BEAKER) (test zwbj=353) 10.5 fL 9.4-12.3 NUCLEATED RED BLOOD CELLS (BEAKER) (test 0 /100 WBC 0-0 yffw=127) NEUTROPHILS RELATIVE PERCENT (BEAKER) (test 80 % uciq=039) LYMPHOCYTES RELATIVE PERCENT (BEAKER) (test 9 % jmqa=705) MONOCYTES RELATIVE PERCENT (BEAKER) (test 7 % ievb=194) EOSINOPHILS RELATIVE PERCENT (BEAKER) (test 2 % cuzf=475) BASOPHILS RELATIVE PERCENT (BEAKER) (test 0 % xlkb=152) NEUTROPHILS ABSOLUTE COUNT (BEAKER) (test 9.94 K/ L 1.56-6.13 wcbd=465) LYMPHOCYTES ABSOLUTE COUNT (BEAKER) (test 1.15 K/ L 1.18-3.74 peed=093) MONOCYTES ABSOLUTE COUNT (BEAKER) (test 0.90 K/ L 0.24-0.36 ttkb=341) EOSINOPHILS ABSOLUTE COUNT (BEAKER) (test 0.24 K/ L 0.04-0.36 rmjt=170) BASOPHILS ABSOLUTE COUNT (BEAKER) (test 0.05 K/ L 0.01-0.08 wkhq=737) IMMATURE GRANULOCYTES-RELATIVE PERCENT (BEAKER) 1 % 0-1 (test klfe=1383) [id number] 01:29:00 Test Item Value Reference Range Comments PHOSPHORUS (BEAKER) (test mtav=202) 3.5 mg/dL 2.3-4.7 BASIC METABOLIC [id number] 01:29:00 Test Item Value Reference Range Comments SODIUM (BEAKER) (test 145 meq/L 136-145 zzzi=346) POTASSIUM (BEAKER) (test 3.4 meq/L 3.5-5.1 jwuu=518) CHLORIDE (BEAKER) (test 107 meq/L 98-107 mcrd=677) CO2 (BEAKER) (test 26 meq/L 22-29 ukdb=792) BLOOD UREA NITROGEN 21 mg/dL 7-21 (BEAKER) (test kuur=202) CREATININE (BEAKER) (test 1.47 mg/dL 0.57-1.25 zcpv=993) GLUCOSE RANDOM (BEAKER) 138 mg/dL 70-105 (test yfuq=529) CALCIUM (BEAKER) (test 9.1 mg/dL 8.4-10.2 hupg=522) EGFR (BEAKER) (test 43 mL/min/1.73 sq m ESTIMATED GFR IS NOT zrlz=9244) ACCURATE CREATININE CLEARANCE IN PREDICTING GLOMERULAR FILTRATION RATE. ESTIMATED GFR IS NOT APPLICABLE FOR DIALYSIS PATIENTS. POCT-GLUCOSE [id number] 22:08:00 Test Item Value Reference Range Comments POC-GLUCOSE METER (BEAKER) 166 mg/dL 70-110 TESTED AT [facility] [address] [facility] (test vrpl=1450) [facility] [address] [id number] 21:22:00 Test Item Value Reference Range Comments MAGNESIUM (BEAKER) (test bles=295) 2.2 mg/dL 1.6-2.6 [id number] 19:23:00 Test Item Value Reference Range Comments PHOSPHORUS (BEAKER) (test oxxb=486) 2.9 mg/dL 2.3-4.7 BASIC METABOLIC [id number] 19:23:00 Test Item Value Reference Range Comments SODIUM (BEAKER) (test 145 meq/L 136-145 rpan=630) POTASSIUM (BEAKER) (test 3.6 meq/L 3.5-5.1 vjcz=541) CHLORIDE (BEAKER) (test 109 meq/L 98-107 vbwu=083) CO2 (BEAKER) (test 24 meq/L 22-29 pluo=454) BLOOD UREA NITROGEN 22 mg/dL 7-21 (BEAKER) (test rqme=726) CREATININE (BEAKER) (test 1.48 mg/dL 0.57-1.25 yapt=686) GLUCOSE RANDOM (BEAKER) 150 mg/dL 70-105 (test brpv=325) CALCIUM (BEAKER) (test 9.0 mg/dL 8.4-10.2 gyix=109) EGFR (BEAKER) (test 42 mL/min/1.73 sq m ESTIMATED GFR IS NOT xtfu=2852) ACCURATE CREATININE CLEARANCE IN PREDICTING GLOMERULAR FILTRATION RATE. ESTIMATED GFR IS NOT APPLICABLE FOR DIALYSIS PATIENTS. POCT-GLUCOSE [id number] 18:13:00 Test Item Value Reference Range Comments POC-GLUCOSE METER (BEAKER) 188 mg/dL 70-110 TESTED AT [facility] [address] [facility] (test jbgp=9371) [facility] [address] [id number] 13:12:00 Test Item Value Reference Range Comments PHOSPHORUS (BEAKER) (test ampn=182) 2.7 mg/dL 2.3-4.7 BASIC METABOLIC [id number] 13:12:00 Test Item Value Reference Range Comments SODIUM (BEAKER) (test 144 meq/L 136-145 dcem=516) POTASSIUM (BEAKER) (test 3.5 meq/L 3.5-5.1 jcgt=150) CHLORIDE (BEAKER) (test 108 meq/L 98-107 ndox=544) CO2 (BEAKER) (test 26 meq/L 22-29 pfat=494) BLOOD UREA NITROGEN 23 mg/dL 7-21 (BEAKER) (test dabe=699) CREATININE (BEAKER) (test 1.45 mg/dL 0.57-1.25 fjgw=750) GLUCOSE RANDOM (BEAKER) 183 mg/dL 70-105 (test yotq=090) CALCIUM (BEAKER) (test 8.5 mg/dL 8.4-10.2 rrec=230) EGFR (BEAKER) (test 43 mL/min/1.73 sq m ESTIMATED GFR IS NOT mvtb=5590) ACCURATE CREATININE CLEARANCE IN PREDICTING GLOMERULAR FILTRATION RATE. ESTIMATED GFR IS NOT APPLICABLE FOR DIALYSIS PATIENTS. POCT-GLUCOSE [id number] 12:07:00 Test Item Value Reference Range Comments POC-GLUCOSE METER (BEAKER) 203 mg/dL 70-110 TESTED AT [facility] [address] [facility] (test adlo=7335) [facility] [address] [id number] 09:50:00 Test Item Value Reference Range Comments MAGNESIUM (BEAKER) (test dymh=998) 2.6 mg/dL 1.6-2.6 RAD, CHEST, 1 VIEW, NON [id number] 08:06:00Reason for exam:->acute respiratory insufficiencyShould this be [...] Location: [facility] Reading Room POCT-GLUCOSE [id number] 07:58:00 Test Item Value Reference Range Comments POC-GLUCOSE METER (BEAKER) 176 mg/dL 70-110 TESTED AT [facility] [address] [place] [address] (test pnxm=1809) [facility] [address] OXYGEN SATURATION, [id number] 05:23:00 Test Item Value Reference Range Comments O2 SATURATION (MEASURED) (BEAKER) (test rght=6692) 64.5 % calibrationBLOOD GAS, [id number] 04:43:00 Test Item Value Reference Range Comments PH ARTERIAL (BEAKER) (test hoix=976) 7.44 7.35-7.45 PCO2 ARTERIAL (BEAKER) (test uays=164) 44 mmHg 35-45 PO2 ARTERIAL (BEAKER) (test rgpr=604) 127 mmHg 80-90 O2 SATURATION ARTERIAL (BEAKER) (test ocrx=166) 98.6 % 96.0-97.0 HCO3 ARTERIAL (BEAKER) (test cmow=409) 29 mmol/L 21-29 BASE EXCESS ARTERIAL (BEAKER) (test ylyj=162) 4.6 mmol/L -2.0-3.0 PATIENT TEMPERATURE (BEAKER) (test zzrd=0176) 37.3 C FIO2 (BEAKER) (test twha=4258) 100.0 % [id number] 04:31:00 Test Item Value Reference Range Comments PHOSPHORUS (BEAKER) (test vrlr=423) 3.4 mg/dL 2.3-4.7 [id number] 04:31:00 Test Item Value Reference Range Comments MAGNESIUM (BEAKER) (test kwmq=684) 2.2 mg/dL 1.6-2.6 BASIC METABOLIC [id number] 04:31:00 Test Item Value Reference Range Comments SODIUM (BEAKER) (test 146 meq/L 136-145 nugn=440) POTASSIUM (BEAKER) (test 3.7 meq/L 3.5-5.1 cqur=741) CHLORIDE (BEAKER) (test 108 meq/L 98-107 qwgh=598) CO2 (BEAKER) (test 28 meq/L 22-29 qhii=527) BLOOD UREA NITROGEN 23 mg/dL 7-21 (BEAKER) (test qvqf=235) CREATININE (BEAKER) (test 1.51 mg/dL 0.57-1.25 lawn=717) GLUCOSE RANDOM (BEAKER) 151 mg/dL 70-105 (test lgbw=187) CALCIUM (BEAKER) (test 9.4 mg/dL 8.4-10.2 gqxa=534) EGFR (BEAKER) (test 41 mL/min/1.73 sq m ESTIMATED GFR IS NOT mvyc=5626) ACCURATE CREATININE CLEARANCE IN PREDICTING GLOMERULAR FILTRATION RATE. ESTIMATED GFR IS NOT APPLICABLE FOR DIALYSIS PATIENTS. HEPATIC FUNCTION [id number] 04:31:00 Test Item Value Reference Range Comments TOTAL PROTEIN (BEAKER) (test bobk=301) 6.6 gm/dL 6.0-8.3 ALBUMIN (BEAKER) (test zfdo=2571) 3.2 g/dL 3.5-5.0 BILIRUBIN TOTAL (BEAKER) (test gnps=638) 1.0 mg/dL 0.2-1.2 BILIRUBIN DIRECT (BEAKER) (test ioed=919) 0.5 mg/dL 0.1-0.5 ALKALINE PHOSPHATASE (BEAKER) (test cynz=745) 60 U/L 40-150 AST (SGOT) (BEAKER) (test rogy=713) 25 U/L 5-34 ALT (SGPT) (BEAKER) (test nlrf=777) 18 U/L 6-55 COMPREHENSIVE METABOLIC [id number] 04:31:00 Test Item Value Reference Range Comments TOTAL PROTEIN (BEAKER) 6.6 gm/dL 6.0-8.3 (test cjlj=977) ALBUMIN (BEAKER) (test 3.2 g/dL 3.5-5.0 fdti=7187) ALKALINE PHOSPHATASE 60 U/L 40-150 (BEAKER) (test fcno=691) BILIRUBIN TOTAL (BEAKER) 1.0 mg/dL 0.2-1.2 (test dwoi=506) SODIUM (BEAKER) (test 146 meq/L 136-145 xrfb=767) POTASSIUM (BEAKER) (test 3.7 meq/L 3.5-5.1 jfav=438) CHLORIDE (BEAKER) (test 108 meq/L 98-107 pmlg=560) CO2 (BEAKER) (test 28 meq/L 22-29 hjsn=932) BLOOD UREA NITROGEN 23 mg/dL 7-21 (BEAKER) (test bcgk=624) CREATININE (BEAKER) (test 1.51 mg/dL 0.57-1.25 lbuk=112) GLUCOSE RANDOM (BEAKER) 151 mg/dL 70-105 (test qjwo=074) CALCIUM (BEAKER) (test 9.4 mg/dL 8.4-10.2 ybid=692) AST (SGOT) (BEAKER) (test 25 U/L 5-34 uxby=254) ALT (SGPT) (BEAKER) (test 18 U/L 6-55 yjgb=578) EGFR (BEAKER) (test 41 mL/min/1.73 sq m ESTIMATED GFR IS NOT mhhf=9946) ACCURATE CREATININE CLEARANCE IN PREDICTING GLOMERULAR FILTRATION RATE. ESTIMATED GFR IS NOT APPLICABLE FOR DIALYSIS PATIENTS. LACTATE DEHYDROGENASE (LDH)2017-07-26 04:31:00 Test Item Value Reference Range Comments LACTATE DEHYDROGENASE (BEAKER) (test pnzy=022) 661 U/L 125-220 CALCIUM, [id number] 04:23:00 Test Item Value Reference Range Comments CALCIUM IONIZED (BEAKER) (test ziqf=423) 1.15 mmol/L 1.12-1.27 PH, BLOOD (BEAKER) (test kzzs=7765) 7.47 CBC W/PLT COUNT & AUTO [id number] 04:20:00 Test Item Value Reference Range Comments WHITE BLOOD CELL COUNT (BEAKER) (test zdry=767) 13.0 K/ L 3.5-10.5 RED BLOOD CELL COUNT (BEAKER) (test tssh=500) 2.56 M/ L 3.93-5.22 HEMOGLOBIN (BEAKER) (test tqig=682) 7.6 GM/DL 11.2-15.7 HEMATOCRIT (BEAKER) (test gyhy=953) 25.4 % 34.1-44.9 MEAN CORPUSCULAR VOLUME (BEAKER) (test nsbp=249) 99.2 fL 79.4-94.8 MEAN CORPUSCULAR HEMOGLOBIN (BEAKER) (test 29.7 pg 25.6-32.2 aaig=769) MEAN CORPUSCULAR HEMOGLOBIN CONC (BEAKER) (test 29.9 GM/DL 32.2-35.5 accu=044) RED CELL DISTRIBUTION WIDTH (BEAKER) (test 15.0 % 11.7-14.4 fwzu=838) PLATELET COUNT (BEAKER) (test njee=284) 161 K/CU MM 150-450 MEAN PLATELET VOLUME (BEAKER) (test cnxl=244) 11.0 fL 9.4-12.3 NUCLEATED RED BLOOD CELLS (BEAKER) (test 0 /100 WBC 0-0 vxdn=844) NEUTROPHILS RELATIVE PERCENT (BEAKER) (test 79 % sctg=240) LYMPHOCYTES RELATIVE PERCENT (BEAKER) (test 10 % krum=725) MONOCYTES RELATIVE PERCENT (BEAKER) (test 7 % esin=473) EOSINOPHILS RELATIVE PERCENT (BEAKER) (test 2 % gcna=181) BASOPHILS RELATIVE PERCENT (BEAKER) (test 1 % bqhs=603) NEUTROPHILS ABSOLUTE COUNT (BEAKER) (test 10.33 K/ L 1.56-6.13 tcyu=807) LYMPHOCYTES ABSOLUTE COUNT (BEAKER) (test 1.35 K/ L 1.18-3.74 tyhf=631) MONOCYTES ABSOLUTE COUNT (BEAKER) (test 0.96 K/ L 0.24-0.36 fqlg=415) EOSINOPHILS ABSOLUTE COUNT (BEAKER) (test 0.19 K/ L 0.04-0.36 urxk=409) BASOPHILS ABSOLUTE COUNT (BEAKER) (test 0.07 K/ L 0.01-0.08 annb=144) IMMATURE GRANULOCYTES-RELATIVE PERCENT (BEAKER) 1 % 0-1 (test rybq=2532) [id number] 21:19:00 Test Item Value Reference Range Comments PHOSPHORUS (BEAKER) (test cxbx=884) 4.4 mg/dL 2.3-4.7 [id number] 21:19:00 Test Item Value Reference Range Comments MAGNESIUM (BEAKER) (test xvob=232) 2.1 mg/dL 1.6-2.6 BASIC METABOLIC [id number] 21:19:00 Test Item Value Reference Range Comments SODIUM (BEAKER) (test 146 meq/L 136-145 ufhv=072) POTASSIUM (BEAKER) (test 3.9 meq/L 3.5-5.1 eldt=299) CHLORIDE (BEAKER) (test 108 meq/L 98-107 kdhw=824) CO2 (BEAKER) (test 27 meq/L 22-29 rqem=780) BLOOD UREA NITROGEN 24 mg/dL 7-21 (BEAKER) (test bvus=602) CREATININE (BEAKER) (test 1.64 mg/dL 0.57-1.25 eoey=899) GLUCOSE RANDOM (BEAKER) 120 mg/dL 70-105 (test wawz=506) CALCIUM (BEAKER) (test 9.5 mg/dL 8.4-10.2 tegj=520) EGFR (BEAKER) (test 38 mL/min/1.73 sq m ESTIMATED GFR IS NOT fngh=5616) ACCURATE CREATININE CLEARANCE IN PREDICTING GLOMERULAR FILTRATION RATE. ESTIMATED GFR IS NOT APPLICABLE FOR DIALYSIS PATIENTS. POCT-GLUCOSE [id number] 18:36:00 Test Item Value Reference Range Comments POC-GLUCOSE METER (BEAKER) 129 mg/dL 70-110 TESTED AT [address] (test nroc=6580) [place] [address] POCT-GLUCOSE [id number] 16:19:00 Test Item Value Reference Range Comments POC-GLUCOSE METER (BEAKER) 132 mg/dL 70-110 TESTED AT [address] (test vfex=9186) [place] [address] [id number] 13:57:00 Test Item Value Reference Range Comments PHOSPHORUS (BEAKER) (test efgx=350) 4.2 mg/dL 2.3-4.7 BASIC METABOLIC [id number] 13:57:00 Test Item Value Reference Range Comments SODIUM (BEAKER) (test 147 meq/L 136-145 hyjw=774) POTASSIUM (BEAKER) (test 3.7 meq/L 3.5-5.1 kgdu=508) CHLORIDE (BEAKER) (test 110 meq/L 98-107 afmi=792) CO2 (BEAKER) (test 25 meq/L 22-29 elwh=160) BLOOD UREA NITROGEN 23 mg/dL 7-21 (BEAKER) (test jjxx=176) CREATININE (BEAKER) (test 1.58 mg/dL 0.57-1.25 oqkm=086) GLUCOSE RANDOM (BEAKER) 129 mg/dL 70-105 (test vxtg=859) CALCIUM (BEAKER) (test 9.2 mg/dL 8.4-10.2 sxbi=627) EGFR (BEAKER) (test 39 mL/min/1.73 sq m ESTIMATED GFR IS NOT icpf=1072) ACCURATE CREATININE CLEARANCE IN PREDICTING GLOMERULAR FILTRATION RATE. ESTIMATED GFR IS NOT APPLICABLE FOR DIALYSIS PATIENTS. BLOOD GAS, [id number] 13:48:00 Test Item Value Reference Range Comments PH ARTERIAL (BEAKER) (test bvnx=470) 7.42 7.35-7.45 PCO2 ARTERIAL (BEAKER) (test ogxb=457) 47 mmHg 35-45 PO2 ARTERIAL (BEAKER) (test hazr=126) 202 mmHg 80-90 O2 SATURATION ARTERIAL (BEAKER) (test obtf=430) 99.4 % 96.0-97.0 HCO3 ARTERIAL (BEAKER) (test vddc=145) 29 mmol/L 21-29 BASE EXCESS ARTERIAL (BEAKER) (test mcbj=641) 4.4 mmol/L -2.0-3.0 PATIENT TEMPERATURE (BEAKER) (test musx=6203) 37.6 C FIO2 (BEAKER) (test dgce=5538) 100.0 % POCT-GLUCOSE [id number] 13:31:00 Test Item Value Reference Range Comments POC-GLUCOSE METER (BEAKER) 128 mg/dL 70-110 TESTED AT [address] (test svbm=9697) [place] [address] POCT-GLUCOSE [id number] 11:02:00 Test Item Value Reference Range Comments POC-GLUCOSE METER (BEAKER) 137 mg/dL 70-110 TESTED AT [address] (test pgfw=8309) [place] [address] POCT-GLUCOSE [id number] 11:02:00 Test Item Value Reference Range Comments POC-GLUCOSE METER (BEAKER) 141 mg/dL 70-110 TESTED AT [address] (test bkek=2482) [place] [address] POCT-GLUCOSE [id number] 11:02:00 Test Item Value Reference Range Comments POC-GLUCOSE METER (BEAKER) 104 mg/dL 70-110 TESTED AT [address] (test svag=3297) [place] [address] BLOOD [id number] 11:00:00 Test Item Value Reference Range Comments CULTURE (BEAKER) (test adak=2059) No growth in 5 days BLOOD [id number] 11:00:00 Test Item Value Reference Range Comments CULTURE (BEAKER) (test jkjs=5859) No growth in 5 days CBC W/PLT COUNT & AUTO [id number] 08:54:00 Test Item Value Reference Range Comments WHITE BLOOD CELL COUNT (BEAKER) (test wfht=003) 13.8 K/ L 3.5-10.5 RED BLOOD CELL COUNT (BEAKER) (test lnyf=132) 2.54 M/ L 3.93-5.22 HEMOGLOBIN (BEAKER) (test nrtn=828) 7.7 GM/DL 11.2-15.7 HEMATOCRIT (BEAKER) (test fyur=241) 25.2 % 34.1-44.9 MEAN CORPUSCULAR VOLUME (BEAKER) (test gapj=057) 99.2 fL 79.4-94.8 MEAN CORPUSCULAR HEMOGLOBIN (BEAKER) (test 30.3 pg 25.6-32.2 prlh=854) MEAN CORPUSCULAR HEMOGLOBIN CONC (BEAKER) (test 30.6 GM/DL 32.2-35.5 xsnr=470) RED CELL DISTRIBUTION WIDTH (BEAKER) (test 15.2 % 11.7-14.4 fvdg=254) PLATELET COUNT (BEAKER) (test olgc=694) 127 K/CU MM 150-450 MEAN PLATELET VOLUME (BEAKER) (test ygup=675) 10.6 fL 9.4-12.3 NUCLEATED RED BLOOD CELLS (BEAKER) (test 0 /100 WBC 0-0 okkh=031) NEUTROPHILS RELATIVE PERCENT (BEAKER) (test 81 % fghj=657) LYMPHOCYTES RELATIVE PERCENT (BEAKER) (test 8 % pjtu=961) MONOCYTES RELATIVE PERCENT (BEAKER) (test 9 % oude=574) EOSINOPHILS RELATIVE PERCENT (BEAKER) (test 1 % gflo=521) BASOPHILS RELATIVE PERCENT (BEAKER) (test 0 % pzip=326) NEUTROPHILS ABSOLUTE COUNT (BEAKER) (test 11.11 K/ L 1.56-6.13 olpi=393) LYMPHOCYTES ABSOLUTE COUNT (BEAKER) (test 1.14 K/ L 1.18-3.74 xsbq=205) MONOCYTES ABSOLUTE COUNT (BEAKER) (test 1.20 K/ L 0.24-0.36 njjx=717) EOSINOPHILS ABSOLUTE COUNT (BEAKER) (test 0.15 K/ L 0.04-0.36 xqkq=226) BASOPHILS ABSOLUTE COUNT (BEAKER) (test 0.04 K/ L 0.01-0.08 uijx=574) IMMATURE GRANULOCYTES-RELATIVE PERCENT (BEAKER) 1 % 0-1 (test pddx=1837) BLOOD GAS, [id number] 08:40:00 Test Item Value Reference Range Comments PH ARTERIAL (BEAKER) (test pmbh=634) 7.43 7.35-7.45 PCO2 ARTERIAL (BEAKER) (test ainz=559) 35 mmHg 35-45 PO2 ARTERIAL (BEAKER) (test yzem=148) 82 mmHg 80-90 O2 SATURATION ARTERIAL (BEAKER) (test nqbg=283) 95.7 % 96.0-97.0 HCO3 ARTERIAL (BEAKER) (test aaha=375) 22 mmol/L 21-29 BASE EXCESS ARTERIAL (BEAKER) (test fadw=198) -1.3 mmol/L -2.0-3.0 PATIENT TEMPERATURE (BEAKER) (test acaa=1187) 38.3 C FIO2 (BEAKER) (test tlyi=0623) 40.0 % [id number] 06:59:00 Test Item Value Reference Range Comments PHOSPHORUS (BEAKER) (test ozmj=609) 3.4 mg/dL 2.3-4.7 [id number] 06:59:00 Test Item Value Reference Range Comments MAGNESIUM (BEAKER) (test mwxq=954) 2.0 mg/dL 1.6-2.6 BASIC METABOLIC [id number] 06:59:00 Test Item Value Reference Range Comments SODIUM (BEAKER) (test 147 meq/L 136-145 ecwe=076) POTASSIUM (BEAKER) (test 3.7 meq/L 3.5-5.1 razt=340) CHLORIDE (BEAKER) (test 111 meq/L 98-107 teca=586) CO2 (BEAKER) (test 23 meq/L 22-29 mkim=324) BLOOD UREA NITROGEN 24 mg/dL 7-21 (BEAKER) (test rgsh=705) CREATININE (BEAKER) (test 1.57 mg/dL 0.57-1.25 iqez=734) GLUCOSE RANDOM (BEAKER) 121 mg/dL 70-105 (test jqic=151) CALCIUM (BEAKER) (test 9.0 mg/dL 8.4-10.2 asop=144) EGFR (BEAKER) (test 39 mL/min/1.73 sq m ESTIMATED GFR IS NOT igfc=1699) ACCURATE CREATININE CLEARANCE IN PREDICTING GLOMERULAR FILTRATION RATE. ESTIMATED GFR IS NOT APPLICABLE FOR DIALYSIS PATIENTS. POCT-GLUCOSE [id number] 06:27:00 Test Item Value Reference Range Comments POC-GLUCOSE METER (BEAKER) 95 mg/dL 70-110 TESTED AT [facility] [address] [facility] (test nipo=0665) [facility] [address] POCT-GLUCOSE [id number] 06:04:00 Test Item Value Reference Range Comments POC-GLUCOSE METER (BEAKER) 128 mg/dL 70-110 TESTED AT [address] (test rkws=2642) [place] [address] [id number] 05:36:00 Test Item Value Reference Range Comments PHOSPHORUS (BEAKER) (test qtzz=640) 3.4 mg/dL 2.3-4.7 BASIC METABOLIC [id number] 05:36:00 Test Item Value Reference Range Comments SODIUM (BEAKER) (test 146 meq/L 136-145 ljof=962) POTASSIUM (BEAKER) (test 3.6 meq/L 3.5-5.1 siwc=501) CHLORIDE (BEAKER) (test 110 meq/L 98-107 clkh=572) CO2 (BEAKER) (test 25 meq/L 22-29 todm=436) BLOOD UREA NITROGEN 25 mg/dL 7-21 (BEAKER) (test fakv=104) CREATININE (BEAKER) (test 1.58 mg/dL 0.57-1.25 xyya=830) GLUCOSE RANDOM (BEAKER) 114 mg/dL 70-105 (test rnaz=928) CALCIUM (BEAKER) (test 8.9 mg/dL 8.4-10.2 amfm=632) EGFR (BEAKER) (test 39 mL/min/1.73 sq m ESTIMATED GFR IS NOT rpjj=8663) ACCURATE CREATININE CLEARANCE IN PREDICTING GLOMERULAR FILTRATION RATE. ESTIMATED GFR IS NOT APPLICABLE FOR DIALYSIS PATIENTS. HEPATIC FUNCTION [id number] 05:36:00 Test Item Value Reference Range Comments TOTAL PROTEIN (BEAKER) (test fozl=720) 6.3 gm/dL 6.0-8.3 ALBUMIN (BEAKER) (test olqe=9413) 3.1 g/dL 3.5-5.0 BILIRUBIN TOTAL (BEAKER) (test tqke=189) 1.1 mg/dL 0.2-1.2 BILIRUBIN DIRECT (BEAKER) (test vrcp=706) 0.7 mg/dL 0.1-0.5 ALKALINE PHOSPHATASE (BEAKER) (test znwo=814) 54 U/L 40-150 AST (SGOT) (BEAKER) (test izcz=364) 23 U/L 5-34 ALT (SGPT) (BEAKER) (test sfnm=990) 17 U/L 6-55 LACTATE DEHYDROGENASE (LDH)2017-07-25 05:36:00 Test Item Value Reference Range Comments LACTATE DEHYDROGENASE (BEAKER) (test riwp=764) 695 U/L 125-220 POCT-GLUCOSE [id number] 05:24:00 Test Item Value Reference Range Comments POC-GLUCOSE METER (BEAKER) 102 mg/dL 70-110 TESTED AT [address] (test xkdr=2978) [facility] [address] RAD, CHEST, 1 VIEW, NON [id number] 04:43:00Reason for exam:-> impellaShould this be performed at the bedside?->YesFINAL REPORT Chest one view. Clinical history: impella Comparison: Chest radiograph 07/24/17 Technique: A single frontal view of the chest was obtained. Findings: Cardiomediastinal contours are unchanged. Endotracheal and feeding tubes as well as a right IJ [place] catheter are unchanged in position. There are patchy bibasilar opacities which may represent atelectasis and/or pneumonia. There is mild elevation of the left hemidiaphragm. There is no definite pleural effusionor pneumothorax. Signed: [facility] Verified Date/Time: 07/25/2017 04:43:27 ReadingLocation: [facility] B1 C013T Transitional Reading Room [id number] 00:51:00 Test Item Value Reference Range Comments PHOSPHORUS (BEAKER) (test ulde=792) 3.4 mg/dL 2.3-4.7 BASIC METABOLIC [id number] 00:51:00 Test Item Value Reference Range Comments SODIUM (BEAKER) (test 146 meq/L 136-145 kiwq=118) POTASSIUM (BEAKER) (test 4.0 meq/L 3.5-5.1 avsp=666) CHLORIDE (BEAKER) (test 110 meq/L 98-107 tkyj=194) CO2 (BEAKER) (test 26 meq/L 22-29 umnh=587) BLOOD UREA NITROGEN 26 mg/dL 7-21 (BEAKER) (test pilv=632) CREATININE (BEAKER) (test 1.53 mg/dL 0.57-1.25 ikmt=485) GLUCOSE RANDOM (BEAKER) 105 mg/dL 70-105 (test rxtu=006) CALCIUM (BEAKER) (test 8.8 mg/dL 8.4-10.2 akvf=897) EGFR (BEAKER) (test 41 mL/min/1.73 sq m ESTIMATED GFR IS NOT hffv=4838) ACCURATE CREATININE CLEARANCE IN PREDICTING GLOMERULAR FILTRATION RATE. ESTIMATED GFR IS NOT APPLICABLE FOR DIALYSIS PATIENTS. POCT-GLUCOSE [id number] 00:32:00 Test Item Value Reference Range Comments POC-GLUCOSE METER (BEAKER) 119 mg/dL 70-110 TESTED AT [address] (test mxnp=2935) [place] [address] POCT-GLUCOSE [id number] 00:27:00 Test Item Value Reference Range Comments POC-GLUCOSE METER (BEAKER) 114 mg/dL 70-110 TESTED AT [address] (test knxc=9102) [place] [address] POCT-GLUCOSE [id number] 23:58:00 Test Item Value Reference Range Comments POC-GLUCOSE METER (BEAKER) 117 mg/dL 70-110 TESTED AT [address] (test mmrl=6223) [place] [address] [id number] 21:24:00 Test Item Value Reference Range Comments MAGNESIUM (BEAKER) (test bwbs=003) 2.0 mg/dL 1.6-2.6 POCT-GLUCOSE [id number] 20:24:00 Test Item Value Reference Range Comments POC-GLUCOSE METER (BEAKER) 130 mg/dL 70-110 TESTED AT [facility] [address] (test eaig=0957) [facility] [address] [id number] 19:20:00 Test Item Value Reference Range Comments POTASSIUM (BEAKER) (test nule=329) 3.6 meq/L 3.5-5.1 [id number] 19:20:00 Test Item Value Reference Range Comments GLUCOSE RANDOM (BEAKER) (test jijt=227) 168 mg/dL 70-105 [id number] 18:01:00 Test Item Value Reference Range Comments PHOSPHORUS (BEAKER) (test gzyx=877) 3.7 mg/dL 2.3-4.7 BASIC METABOLIC [id number] 18:01:00 Test Item Value Reference Range Comments SODIUM (BEAKER) (test 145 meq/L 136-145 nqbw=624) POTASSIUM (BEAKER) (test 3.9 meq/L 3.5-5.1 tutz=193) CHLORIDE (BEAKER) (test 109 meq/L 98-107 gdsh=780) CO2 (BEAKER) (test 27 meq/L 22-29 hxmd=382) BLOOD UREA NITROGEN 26 mg/dL 7-21 (BEAKER) (test feyt=533) CREATININE (BEAKER) (test 1.47 mg/dL 0.57-1.25 efkl=477) GLUCOSE RANDOM (BEAKER) 210 mg/dL 70-105 (test yupo=646) CALCIUM (BEAKER) (test 8.5 mg/dL 8.4-10.2 izve=888) EGFR (BEAKER) (test 43 mL/min/1.73 sq m ESTIMATED GFR IS NOT ekpd=1698) ACCURATE CREATININE CLEARANCE IN PREDICTING GLOMERULAR FILTRATION RATE. ESTIMATED GFR IS NOT APPLICABLE FOR DIALYSIS PATIENTS. GLUCOSE-STAT [id number] 17:14:00 Test Item Value Reference Range Comments GLUCOSE RANDOM (BEAKER) (test kzbh=479) 208 mg/dL 70-110 BLOOD GAS, [id number] 17:13:00 Test Item Value Reference Range Comments PH ARTERIAL (BEAKER) (test uyca=644) 7.44 7.35-7.45 PCO2 ARTERIAL (BEAKER) (test gedo=969) 43 mmHg 35-45 PO2 ARTERIAL (BEAKER) (test pmlm=138) 58 mmHg 80-90 O2 SATURATION ARTERIAL (BEAKER) (test csiz=513) 90.8 % 96.0-97.0 HCO3 ARTERIAL (BEAKER) (test vcoz=875) 28 mmol/L 21-29 BASE EXCESS ARTERIAL (BEAKER) (test qxvd=858) 3.9 mmol/L -2.0-3.0 PATIENT TEMPERATURE (BEAKER) (test cgey=1451) 37.0 C FIO2 (BEAKER) (test ewli=6452) 100.0 % RAD, CHEST, 1 VIEW, NON [id number] 14:00:00Reason for exam:->post intubationShould this be performed at the bedside?->YesFINAL REPORT AP chest. HISTORY: Endotracheal tube COMPARISON: 07/24/2017 IMPRESSION:Endotracheal tube projects deep in the trachea, approximately 1-2 cm above the level of the toro. Cardiomegaly similar to previous. Worsening aeration at the left lung base. Mild pulmonary vascular congestion. No pneumothorax. Signed: Mitchel Canela MDReppemiscot memorial health systems Verified Date/Time: 07/24/2017 14:00:17 Reading Location: [place] [id number] CT Body Reading Room [id number] 13:40:00 Test Item Value Reference Range Comments PHOSPHORUS (BEAKER) (test tqgf=890) 4.3 mg/dL 2.3-4.7 [id number] 13:40:00 Test Item Value Reference Range Comments MAGNESIUM (BEAKER) (test zgek=959) 2.0 mg/dL 1.6-2.6 BASIC METABOLIC [id number] 13:40:00 Test Item Value Reference Range Comments SODIUM (BEAKER) (test 145 meq/L 136-145 rmwq=726) POTASSIUM (BEAKER) (test 3.9 meq/L 3.5-5.1 ntcv=979) CHLORIDE (BEAKER) (test 108 meq/L 98-107 yjuu=657) CO2 (BEAKER) (test 24 meq/L 22-29 palb=027) BLOOD UREA NITROGEN 28 mg/dL 7-21 (BEAKER) (test xpfs=428) CREATININE (BEAKER) (test 1.43 mg/dL 0.57-1.25 myud=415) GLUCOSE RANDOM (BEAKER) 206 mg/dL 70-105 (test eosy=151) CALCIUM (BEAKER) (test 8.5 mg/dL 8.4-10.2 ufcd=194) EGFR (BEAKER) (test 44 mL/min/1.73 sq m ESTIMATED GFR IS NOT arfs=1630) ACCURATE CREATININE CLEARANCE IN PREDICTING GLOMERULAR FILTRATION RATE. ESTIMATED GFR IS NOT APPLICABLE FOR DIALYSIS PATIENTS. LACTIC ACID, ARTERIAL, WHOLE [id number] 13:36:00 Test Item Value Reference Range Comments LACTATE BLOOD ARTERIAL (2) (BEAKER) (test 0.7 mmol/L 0.5-2.2 lmvz=8260) Effective 08/06/2015: Units/Reference Range ChangeNew: 0.5-2.2 mmol/L Previous: 5 -20 mg/dLCBC W/PLT COUNT & AUTO [id number] 13:24:00 Test Item Value Reference Range Comments WHITE BLOOD CELL COUNT (BEAKER) (test csgc=459) 10.5 K/ L 3.5-10.5 RED BLOOD CELL COUNT (BEAKER) (test ghop=022) 2.70 M/ L 3.93-5.22 HEMOGLOBIN (BEAKER) (test hcbn=742) 8.1 GM/DL 11.2-15.7 HEMATOCRIT (BEAKER) (test snle=195) 27.0 % 34.1-44.9 MEAN CORPUSCULAR VOLUME (BEAKER) (test fxxj=889) 100.0 fL 79.4-94.8 MEAN CORPUSCULAR HEMOGLOBIN (BEAKER) (test 30.0 pg 25.6-32.2 aeaj=718) MEAN CORPUSCULAR HEMOGLOBIN CONC (BEAKER) (test 30.0 GM/DL 32.2-35.5 tnpx=200) RED CELL DISTRIBUTION WIDTH (BEAKER) (test 14.9 % 11.7-14.4 guzn=803) PLATELET COUNT (BEAKER) (test llmm=571) 117 K/CU MM 150-450 MEAN PLATELET VOLUME (BEAKER) (test yxoq=008) 10.9 fL 9.4-12.3 NUCLEATED RED BLOOD CELLS (BEAKER) (test 0 /100 WBC 0-0 afxd=015) NEUTROPHILS RELATIVE PERCENT (BEAKER) (test 78 % njfy=570) LYMPHOCYTES RELATIVE PERCENT (BEAKER) (test 10 % dcsv=511) MONOCYTES RELATIVE PERCENT (BEAKER) (test 10 % pekz=403) EOSINOPHILS RELATIVE PERCENT (BEAKER) (test 1 % ypbi=672) BASOPHILS RELATIVE PERCENT (BEAKER) (test 0 % ksgb=606) NEUTROPHILS ABSOLUTE COUNT (BEAKER) (test 8.20 K/ L 1.56-6.13 pqib=425) LYMPHOCYTES ABSOLUTE COUNT (BEAKER) (test 1.00 K/ L 1.18-3.74 ohfo=661) MONOCYTES ABSOLUTE COUNT (BEAKER) (test 1.06 K/ L 0.24-0.36 ahzx=973) EOSINOPHILS ABSOLUTE COUNT (BEAKER) (test 0.09 K/ L 0.04-0.36 vwep=802) BASOPHILS ABSOLUTE COUNT (BEAKER) (test 0.04 K/ L 0.01-0.08 ncpv=858) IMMATURE GRANULOCYTES-RELATIVE PERCENT (BEAKER) 1 % 0-1 (test ihek=9881) OXYGEN SATURATION, [id number] 13:08:00 Test Item Value Reference Range Comments O2 SATURATION (MEASURED) (BEAKER) (test tcvr=6339) 65.1 % PA catheter tipBLOOD GAS, [id number] 13:08:00 Test Item Value Reference Range Comments PH ARTERIAL (BEAKER) (test qpcb=365) 7.42 7.35-7.45 PCO2 ARTERIAL (BEAKER) (test pkhg=893) 42 mmHg 35-45 PO2 ARTERIAL (BEAKER) (test barf=462) 239 mmHg 80-90 O2 SATURATION ARTERIAL (BEAKER) (test amja=334) 99.6 % 96.0-97.0 HCO3 ARTERIAL (BEAKER) (test eoos=901) 27 mmol/L 21-29 BASE EXCESS ARTERIAL (BEAKER) (test ssrk=725) 2.1 mmol/L -2.0-3.0 PATIENT TEMPERATURE (BEAKER) (test ngez=6140) 36.6 C FIO2 (BEAKER) (test bdkl=5032) 100.0 % GLUCOSE-STAT [id number] 13:08:00 Test Item Value Reference Range Comments GLUCOSE RANDOM (BEAKER) (test qfln=541) 194 mg/dL 70-110 HGB/HCT (H&H) - STAT [id number] 13:08:00 Test Item Value Reference Range Comments HEMOGLOBIN (BEAKER) (test yvoa=951) 8.8 g/dL 12.0-15.0 HEMATOCRIT (BEAKER) (test ysrb=363) 26.0 % 36.0-45.0 CALCIUM, [id number] 13:08:00 Test Item Value Reference Range Comments CALCIUM IONIZED (BEAKER) (test vdbw=629) 1.08 mmol/L 1.12-1.27 PH, BLOOD (BEAKER) (test rzsi=6402) 7.41 SODIUM NA-STAT [id number] 13:07:00 Test Item Value Reference Range Comments SODIUM (BEAKER) (test vzqi=591) 140 meq/L 135-148 POTASSIUM-STAT [id number] 13:07:00 Test Item Value Reference Range Comments POTASSIUM (BEAKER) (test baws=588) 3.7 meq/L 3.6-5.5 SODIUM NA-STAT [id number] 11:39:00 Test Item Value Reference Range Comments SODIUM (BEAKER) (test frfm=829) 141 meq/L 135-148 POTASSIUM-STAT [id number] 11:39:00 Test Item Value Reference Range Comments POTASSIUM (BEAKER) (test wntv=823) 3.6 meq/L 3.6-5.5 BLOOD GAS, [id number] 11:39:00 Test Item Value Reference Range Comments PH ARTERIAL (BEAKER) (test clng=739) 7.44 7.35-7.45 PCO2 ARTERIAL (BEAKER) (test wuxi=868) 42 mmHg 35-45 PO2 ARTERIAL (BEAKER) (test pnqx=660) 234 mmHg 80-90 O2 SATURATION ARTERIAL (BEAKER) (test rybm=627) 99.6 % 96.0-97.0 HCO3 ARTERIAL (BEAKER) (test jtqa=456) 28 mmol/L 21-29 BASE EXCESS ARTERIAL (BEAKER) (test bhjd=164) 3.4 mmol/L -2.0-3.0 PATIENT TEMPERATURE (BEAKER) (test marm=4935) 36.8 C FIO2 (BEAKER) (test oxtx=7480) 86.0 % GLUCOSE-STAT [id number] 11:39:00 Test Item Value Reference Range Comments GLUCOSE RANDOM (BEAKER) (test oxxr=625) 194 mg/dL 70-110 HGB/HCT (H&H) - STAT [id number] 11:39:00 Test Item Value Reference Range Comments HEMOGLOBIN (BEAKER) (test grgw=905) 8.8 g/dL 12.0-15.0 HEMATOCRIT (BEAKER) (test onxk=117) 26.0 % 36.0-45.0 CALCIUM, [id number] 11:39:00 Test Item Value Reference Range Comments CALCIUM IONIZED (BEAKER) (test qeqw=526) 1.06 mmol/L 1.12-1.27 PH, BLOOD (BEAKER) (test adfa=2503) 7.44 BLOOD GAS, [id number] 10:56:00 Test Item Value Reference Range Comments PH ARTERIAL (BEAKER) (test rqkf=679) 7.43 7.35-7.45 PCO2 ARTERIAL (BEAKER) (test rbti=567) 46 mmHg 35-45 PO2 ARTERIAL (BEAKER) (test rwlh=243) 223 mmHg 80-90 O2 SATURATION ARTERIAL (BEAKER) (test zfag=549) 99.5 % 96.0-97.0 HCO3 ARTERIAL (BEAKER) (test nmyh=139) 30 mmol/L 21-29 BASE EXCESS ARTERIAL (BEAKER) (test xffh=214) 4.6 mmol/L -2.0-3.0 PATIENT TEMPERATURE (BEAKER) (test xlnd=9529) 37.0 C FIO2 (BEAKER) (test eoxz=4083) 100.0 % GLUCOSE-STAT [id number] 10:56:00 Test Item Value Reference Range Comments GLUCOSE RANDOM (BEAKER) (test jkpl=444) 190 mg/dL 70-110 HGB/HCT (H&H) - STAT [id number] 10:56:00 Test Item Value Reference Range Comments HEMOGLOBIN (BEAKER) (test eiwp=579) 8.7 g/dL 12.0-15.0 HEMATOCRIT (BEAKER) (test ucde=026) 26.0 % 36.0-45.0 SODIUM NA-STAT [id number] 10:55:00 Test Item Value Reference Range Comments SODIUM (BEAKER) (test utbi=066) 142 meq/L 135-148 POTASSIUM-STAT [id number] 10:55:00 Test Item Value Reference Range Comments POTASSIUM (BEAKER) (test ulzm=710) 3.5 meq/L 3.6-5.5 [id number] 08:41:00 Test Item Value Reference Range Comments MAGNESIUM (BEAKER) (test yxju=024) 2.0 mg/dL 1.6-2.6 BLOOD GAS, [id number] 07:57:00 Test Item Value Reference Range Comments PH ARTERIAL (BEAKER) (test sadf=550) 7.48 7.35-7.45 PCO2 ARTERIAL (BEAKER) (test qaka=553) 37 mmHg 35-45 PO2 ARTERIAL (BEAKER) (test khwl=227) 71 mmHg 80-90 O2 SATURATION ARTERIAL (BEAKER) (test fjdw=450) 94.8 % 96.0-97.0 HCO3 ARTERIAL (BEAKER) (test fvmq=675) 27 mmol/L 21-29 BASE EXCESS ARTERIAL (BEAKER) (test nlod=964) 3.5 mmol/L -2.0-3.0 PATIENT TEMPERATURE (BEAKER) (test naqy=3344) 37.8 C FIO2 (BEAKER) (test tmrh=2524) 32.0 % POCT-GLUCOSE [id number] 07:50:00 Test Item Value Reference Range Comments POC-GLUCOSE METER (BEAKER) 246 mg/dL 70-110 TESTED AT [facility] [address] [place] [address] (test drgu=8631) [facility] [address] RAD, CHEST, 1 VIEW, NON [id number] 04:54:00Reason for exam:-> impellaShould this be performed at the bedside?->YesFINAL REPORT CLINICAL INDICATION: Support lines. Comparison: 07/23/2017 The cardiomediastinal contours are stable. Central pulmonary vascular prominence and bilateral parenchymalopacities are similar to previous. There is no pneumothorax. Support lines are stable. Signed: Adelso Sorensen Verified Date/Time: 07/24/2017 04:54:08 Reading Location: [address] Reading Room POCT-GLUCOSE [id number] 04:08:00 Test Item Value Reference Range Comments POC-GLUCOSE METER (BEAKER) 137 mg/dL 70-110 TESTED AT [facility] [address] [facility] (test oaoc=7810) [facility] [address] [id number] 03:02:00 Test Item Value Reference Range Comments PHOSPHORUS (BEAKER) (test yoon=447) 3.7 mg/dL 2.3-4.7 [id number] 03:02:00 Test Item Value Reference Range Comments MAGNESIUM (BEAKER) (test nwki=363) 2.3 mg/dL 1.6-2.6 BASIC METABOLIC [id number] 03:02:00 Test Item Value Reference Range Comments SODIUM (BEAKER) (test 145 meq/L 136-145 jkea=989) POTASSIUM (BEAKER) (test 4.0 meq/L 3.5-5.1 kisk=236) CHLORIDE (BEAKER) (test 106 meq/L 98-107 wfhg=799) CO2 (BEAKER) (test 26 meq/L 22-29 ppxe=549) BLOOD UREA NITROGEN 26 mg/dL 7-21 (BEAKER) (test mrox=207) CREATININE (BEAKER) (test 1.47 mg/dL 0.57-1.25 tuyz=436) GLUCOSE RANDOM (BEAKER) 141 mg/dL 70-105 (test ajpk=149) CALCIUM (BEAKER) (test 9.0 mg/dL 8.4-10.2 utnn=551) EGFR (BEAKER) (test 43 mL/min/1.73 sq m ESTIMATED GFR IS NOT pwbv=7845) ACCURATE CREATININE CLEARANCE IN PREDICTING GLOMERULAR FILTRATION RATE. ESTIMATED GFR IS NOT APPLICABLE FOR DIALYSIS PATIENTS. HEPATIC FUNCTION [id number] 03:02:00 Test Item Value Reference Range Comments TOTAL PROTEIN (BEAKER) (test hebi=249) 6.6 gm/dL 6.0-8.3 ALBUMIN (BEAKER) (test tfdu=9406) 3.2 g/dL 3.5-5.0 BILIRUBIN TOTAL (BEAKER) (test bhxo=073) 1.2 mg/dL 0.2-1.2 BILIRUBIN DIRECT (BEAKER) (test ljha=500) 0.6 mg/dL 0.1-0.5 ALKALINE PHOSPHATASE (BEAKER) (test nwhi=938) 55 U/L 40-150 AST (SGOT) (BEAKER) (test pcgd=146) 33 U/L 5-34 ALT (SGPT) (BEAKER) (test kaxb=605) 25 U/L 6-55 LACTATE DEHYDROGENASE (LDH)2017-07-24 03:02:00 Test Item Value Reference Range Comments LACTATE DEHYDROGENASE (BEAKER) (test nzwq=611) 879 U/L 125-220 CBC W/PLT COUNT & AUTO [id number] 02:53:00 Test Item Value Reference Range Comments WHITE BLOOD CELL COUNT (BEAKER) (test olos=387) 12.6 K/ L 3.5-10.5 RED BLOOD CELL COUNT (BEAKER) (test gvfq=825) 2.93 M/ L 3.93-5.22 HEMOGLOBIN (BEAKER) (test tcgg=700) 8.7 GM/DL 11.2-15.7 HEMATOCRIT (BEAKER) (test kaxv=948) 28.3 % 34.1-44.9 MEAN CORPUSCULAR VOLUME (BEAKER) (test tfqa=519) 96.6 fL 79.4-94.8 MEAN CORPUSCULAR HEMOGLOBIN (BEAKER) (test 29.7 pg 25.6-32.2 qbjc=112) MEAN CORPUSCULAR HEMOGLOBIN CONC (BEAKER) (test 30.7 GM/DL 32.2-35.5 dfak=709) RED CELL DISTRIBUTION WIDTH (BEAKER) (test 14.7 % 11.7-14.4 qtym=830) PLATELET COUNT (BEAKER) (test aknz=652) 126 K/CU MM 150-450 MEAN PLATELET VOLUME (BEAKER) (test uosk=309) 11.0 fL 9.4-12.3 NUCLEATED RED BLOOD CELLS (BEAKER) (test 0 /100 WBC 0-0 nkkt=667) NEUTROPHILS RELATIVE PERCENT (BEAKER) (test 78 % lhdh=208) LYMPHOCYTES RELATIVE PERCENT (BEAKER) (test 10 % qdvo=428) MONOCYTES RELATIVE PERCENT (BEAKER) (test 10 % cdfp=919) EOSINOPHILS RELATIVE PERCENT (BEAKER) (test 1 % nkxo=629) BASOPHILS RELATIVE PERCENT (BEAKER) (test 0 % eakn=428) NEUTROPHILS ABSOLUTE COUNT (BEAKER) (test 9.85 K/ L 1.56-6.13 mjou=818) LYMPHOCYTES ABSOLUTE COUNT (BEAKER) (test 1.27 K/ L 1.18-3.74 mctq=250) MONOCYTES ABSOLUTE COUNT (BEAKER) (test 1.25 K/ L 0.24-0.36 ggzy=586) EOSINOPHILS ABSOLUTE COUNT (BEAKER) (test 0.10 K/ L 0.04-0.36 pdmb=906) BASOPHILS ABSOLUTE COUNT (BEAKER) (test 0.05 K/ L 0.01-0.08 knft=859) IMMATURE GRANULOCYTES-RELATIVE PERCENT (BEAKER) 1 % 0-1 (test lrkg=0332) [id number] 02:50:00 Test Item Value Reference Range Comments PROTIME (BEAKER) (test xsxg=455) 16.7 seconds 11.7-14.7 INR (BEAKER) (test zgqx=511) 1.4 <=5.9 PARTIAL THROMBOPLASTIN TIME (BEAKER) (test 78.5 seconds 22.5-36.0 ptvs=523) RECOMMENDED COUMADIN/WARFARIN INR THERAPY RANGESSTANDARD DOSE: 2.0 - 3.0 Includes: PROPHYLAXIS forvenous thrombosis, systemic embolization; TREATMENT for venous thrombosis and/or pulmonary embolus.HIGH RISK: Target INR is 2.5-3.5 for patients with mechanical heart valves.BLOOD [id number] 00:00:00 Test Item Value Reference Range Comments CULTURE (BEAKER) (test xdab=0760) No growth in 5 days BLOOD [id number] 00:00:00 Test Item Value Reference Range Comments CULTURE (BEAKER) (test xjch=5739) No growth in 5 days [id number] 22:01:00 Test Item Value Reference Range Comments MAGNESIUM (BEAKER) (test djsp=610) 2.0 mg/dL 1.6-2.6 POCT-GLUCOSE [id number] 19:39:00 Test Item Value Reference Range Comments POC-GLUCOSE METER (BEAKER) 135 mg/dL 70-110 TESTED AT [facility] [address] [facility] (test zvkb=3829) [facility] [address] BASIC METABOLIC [id number] 19:08:00 Test Item Value Reference Range Comments SODIUM (BEAKER) (test 145 meq/L 136-145 iddc=424) POTASSIUM (BEAKER) (test 3.9 meq/L 3.5-5.1 qcnk=239) CHLORIDE (BEAKER) (test 106 meq/L 98-107 bcsx=021) CO2 (BEAKER) (test 28 meq/L 22-29 qjgk=086) BLOOD UREA NITROGEN 26 mg/dL 7-21 (BEAKER) (test soak=743) CREATININE (BEAKER) (test 1.45 mg/dL 0.57-1.25 ywxw=593) GLUCOSE RANDOM (BEAKER) 119 mg/dL 70-105 (test hoes=019) CALCIUM (BEAKER) (test 9.2 mg/dL 8.4-10.2 xblb=913) EGFR (BEAKER) (test 43 mL/min/1.73 sq m ESTIMATED GFR IS NOT czwh=5251) ACCURATE CREATININE CLEARANCE IN PREDICTING GLOMERULAR FILTRATION RATE. ESTIMATED GFR IS NOT APPLICABLE FOR DIALYSIS PATIENTS. [id number] 19:06:00 Test Item Value Reference Range Comments PHOSPHORUS (BEAKER) (test suxs=073) 3.7 mg/dL 2.3-4.7 VANCOMYCIN LEVEL, [id number] 16:33:00 Test Item Value Reference Range Comments VANCOMYCIN TROUGH (BEAKER) (test hbpd=843) 17.8 ug/mL 10.0-20.0 If vancomycin trough level > 20 mcg/mL, hold next vancomycin dose, and contact MD and pharmacist.VARICELLA ZOSTER ANTIBODY, [id number] 14:47:00 Test Item Value Reference Range Comments VARICELLA ZOSTER IGG (AL) (BEAKER) (test ofna=6421) 2.3 Al VARICELLA ZOSTER RESULT INTERPRETATIONS: <=0.8 Al Nonreactive: Presumed non-immune to VZV 0.9-1.0 Al Equivocal >=1.1 Al Reactive: Presumed immune to VZVCYTOMEGALOVIRUS ANTIBODY, [id number] 14:46:00 Test Item Value Reference Range Comments CYTOMEGALOVIRUS IGG ANTIBODY (BEAKER) (test Negative kqaa=224) CYTOMEGALOVIRUS ANTIBODY, [id number] 14:46:00 Test Item Value Reference Range Comments CYTOMEGALOVIRUS IGM ANTIBODY (BEAKER) (test Negative endc=213) EBV-VCA ANTIBODY, [id number] 14:46:00 Test Item Value Reference Range Comments MARIO-CARMEN VCA IGG (BEAKER) (test rrvh=427) Positive EBV-VCA ANTIBODY, [id number] 14:46:00 Test Item Value Reference Range Comments MARIO-CARMEN VCA IGM (BEAKER) (test crkb=919) Negative HERPES VIRUS ANTIBODY, [id number] 14:45:00 Test Item Value Reference Range Comments HERPES VIRUS IGG (BEAKER) (test pjrm=2311) Negative HSV IgG 1=NEGATIVEHSV IgG 2=NEGATIVETOXOPLASMA GONDII ANTIBODY, [id number] 14 :45:00 Test Item Value Reference Range Comments TOXOPLASMA GONDII IGG (BEAKER) (test sdky=557) Negative [id number] 14:37:00 Test Item Value Reference Range Comments PARTIAL THROMBOPLASTIN TIME (BEAKER) (test 69.5 seconds 22.5-36.0 kkyr=623) OCCULT BLOOD, [id number] 14:34:00 Test Item Value Reference Range Comments FECAL OCCULT BLOOD (BEAKER) (test ankx=712) Negative Negative POCT-GLUCOSE [id number] 14:20:00 Test Item Value Reference Range Comments POC-GLUCOSE METER (BEAKER) 166 mg/dL 70-110 TESTED AT [address] (test cltu=9822) [facility] [address] POCT-GLUCOSE [id number] 14:20:00 Test Item Value Reference Range Comments POC-GLUCOSE METER (BEAKER) 82 mg/dL 70-110 TESTED AT [address] (test kakl=6412) [facility] [address] [id number] 13:00:00 Test Item Value Reference Range Comments PHOSPHORUS (BEAKER) (test rzqr=883) 3.2 mg/dL 2.3-4.7 BASIC METABOLIC [id number] 13:00:00 Test Item Value Reference Range Comments SODIUM (BEAKER) (test 143 meq/L 136-145 hsfz=267) POTASSIUM (BEAKER) (test 3.8 meq/L 3.5-5.1 uidh=454) CHLORIDE (BEAKER) (test 104 meq/L 98-107 regz=685) CO2 (BEAKER) (test 29 meq/L 22-29 ovet=207) BLOOD UREA NITROGEN 28 mg/dL 7-21 (BEAKER) (test ksge=234) CREATININE (BEAKER) (test 1.44 mg/dL 0.57-1.25 zmmm=818) GLUCOSE RANDOM (BEAKER) 171 mg/dL 70-105 (test obvp=390) CALCIUM (BEAKER) (test 9.1 mg/dL 8.4-10.2 ziul=408) EGFR (BEAKER) (test 44 mL/min/1.73 sq m ESTIMATED GFR IS NOT ehku=6600) ACCURATE CREATININE CLEARANCE IN PREDICTING GLOMERULAR FILTRATION RATE. ESTIMATED GFR IS NOT APPLICABLE FOR DIALYSIS PATIENTS. POCT-GLUCOSE [id number] 12:29:00 Test Item Value Reference Range Comments POC-GLUCOSE METER (BEAKER) 179 mg/dL 70-110 TESTED AT [address] (test fsfm=4172) [facility] [address] CREATININE [id number] 11:15:00 Test Item Value Reference Range Comments CREATININE CLEARANCE (BEAKER) 45.8 mL/min 70.0-140.0 (test xxuu=454) VOLUME, TOTAL (BEAKER) (test 3400 ml ghvj=2303) CREATININE URINE (BEAKER) (test 36.8 mg/dL omcf=670) [id number] (BEAKER) Анна Encarnacion MD (test jrvg=8885) (electronic signature) PATIENT HEIGHT (CM) (BEAKER) 165.1 cm (test qvpi=7867) PATIENT WEIGHT (KG) (BEAKER) 84.100 kg (test gddf=4780) [id number] 09:15:00 Test Item Value Reference Range Comments POTASSIUM (BEAKER) (test lxml=487) 4.1 meq/L 3.5-5.1 PRN - repeat potassium levels every 1 hour until glucose level is less than 450 mg/[id number] 09:15:00 Test Item Value Reference Range Comments MAGNESIUM (BEAKER) (test qzxj=082) 2.4 mg/dL 1.6-2.6 PRN - repeat potassium levels every 1 hour until glucose level is less than 450 mg/dLPOCT-GLUCOSE [id number] 08:47:00 Test Item Value Reference Range Comments POC-GLUCOSE METER (BEAKER) 155 mg/dL 70-110 TESTED AT [address] (test wpha=1256) [facility] [address] POCT-GLUCOSE [id number] 06:12:00 Test Item Value Reference Range Comments POC-GLUCOSE METER (BEAKER) 143 mg/dL 70-110 TESTED AT [facility] [address] [facility] (test caso=3895) [facility] [address] POCT-GLUCOSE [id number] 06:12:00 Test Item Value Reference Range Comments POC-GLUCOSE METER (BEAKER) 123 mg/dL 70-110 TESTED AT [facility] [address] [facility] (test irxf=8040) [facility] [address] RAD, CHEST, 1 VIEW, NON [id number] 05:36:00Reason for exam:->respiratory insufficiencyFINAL REPORT Chest one view. Clinical history: respiratory insufficiency Comparison: Chest radiograph 07/22/2017 Technique: A single frontal view of the chest was obtained. Findings: Cardiomediastinal contours are unchanged. There is a right IJ [place]-Jagdeep catheter, with tip inthe right pulmonary artery. [...] Ramirez Verified Date/Time: 07/23/2017 05:36:35 Reading Location: [address] Reading Room CALCIUM, [id number] 05:19:00 Test Item Value Reference Range Comments CALCIUM IONIZED (BEAKER) (test lecu=196) 1.12 mmol/L 1.12-1.27 PH, BLOOD (BEAKER) (test rxqq=5535) 7.40 OXYGEN SATURATION, [id number] 05:18:00 Test Item Value Reference Range Comments O2 SATURATION (MEASURED) (BEAKER) (test ngob=1078) 63.1 % POCT-GLUCOSE [id number] 05:05:00 Test Item Value Reference Range Comments POC-GLUCOSE METER (BEAKER) 131 mg/dL 70-110 TESTED AT [facility] [address] (test bpkl=9090) [place] [address] BLOOD GAS, [id number] 04:58:00 Test Item Value Reference Range Comments PH ARTERIAL (BEAKER) (test tmay=344) 7.41 7.35-7.45 PCO2 ARTERIAL (BEAKER) (test govz=616) 51 mmHg 35-45 PO2 ARTERIAL (BEAKER) (test gnnl=888) 93 mmHg 80-90 O2 SATURATION ARTERIAL (BEAKER) (test pman=471) 96.9 % 96.0-97.0 HCO3 ARTERIAL (BEAKER) (test oguj=149) 31 mmol/L 21-29 BASE EXCESS ARTERIAL (BEAKER) (test rjvc=753) 5.9 mmol/L -2.0-3.0 PATIENT TEMPERATURE (BEAKER) (test gsar=8035) 37.4 C FIO2 (BEAKER) (test iowd=5259) 70.0 % [id number] 03:35:00 Test Item Value Reference Range Comments PARTIAL THROMBOPLASTIN TIME (BEAKER) (test 70.8 seconds 22.5-36.0 ontt=416) [id number] 03:34:00 Test Item Value Reference Range Comments PHOSPHORUS (BEAKER) (test bktz=560) 3.0 mg/dL 2.3-4.7 [id number] 03:34:00 Test Item Value Reference Range Comments MAGNESIUM (BEAKER) (test wqee=422) 2.1 mg/dL 1.6-2.6 BASIC METABOLIC [id number] 03:34:00 Test Item Value Reference Range Comments SODIUM (BEAKER) (test 144 meq/L 136-145 glrl=256) POTASSIUM (BEAKER) (test 3.9 meq/L 3.5-5.1 odpu=846) CHLORIDE (BEAKER) (test 105 meq/L 98-107 ibsn=829) CO2 (BEAKER) (test 29 meq/L 22-29 onnc=743) BLOOD UREA NITROGEN 29 mg/dL 7-21 (BEAKER) (test zwud=828) CREATININE (BEAKER) (test 1.54 mg/dL 0.57-1.25 chag=650) GLUCOSE RANDOM (BEAKER) 119 mg/dL 70-105 (test ksns=959) CALCIUM (BEAKER) (test 9.1 mg/dL 8.4-10.2 zmgi=061) EGFR (BEAKER) (test 40 mL/min/1.73 sq m ESTIMATED GFR IS NOT vmpq=3078) ACCURATE CREATININE CLEARANCE IN PREDICTING GLOMERULAR FILTRATION RATE. ESTIMATED GFR IS NOT APPLICABLE FOR DIALYSIS PATIENTS. HEPATIC FUNCTION [id number] 03:34:00 Test Item Value Reference Range Comments TOTAL PROTEIN (BEAKER) (test ysxn=122) 6.7 gm/dL 6.0-8.3 ALBUMIN (BEAKER) (test nyvp=0246) 3.3 g/dL 3.5-5.0 BILIRUBIN TOTAL (BEAKER) (test unij=528) 1.2 mg/dL 0.2-1.2 BILIRUBIN DIRECT (BEAKER) (test fnyl=897) 0.6 mg/dL 0.1-0.5 ALKALINE PHOSPHATASE (BEAKER) (test pgsw=480) 51 U/L 40-150 AST (SGOT) (BEAKER) (test ttgn=793) 48 U/L 5-34 ALT (SGPT) (BEAKER) (test ghhu=299) 29 U/L 6-55 LACTATE DEHYDROGENASE (LDH)2017-07-23 03:34:00 Test Item Value Reference Range Comments LACTATE DEHYDROGENASE (BEAKER) (test vbeq=215) 1020 U/L 125-220 CBC W/PLT COUNT & AUTO [id number] 03:25:00 Test Item Value Reference Range Comments WHITE BLOOD CELL COUNT (BEAKER) (test pzju=809) 11.7 K/ L 3.5-10.5 RED BLOOD CELL COUNT (BEAKER) (test rgrg=463) 3.01 M/ L 3.93-5.22 HEMOGLOBIN (BEAKER) (test wzqs=772) 9.0 GM/DL 11.2-15.7 HEMATOCRIT (BEAKER) (test ysse=590) 28.9 % 34.1-44.9 MEAN CORPUSCULAR VOLUME (BEAKER) (test flyy=910) 96.0 fL 79.4-94.8 MEAN CORPUSCULAR HEMOGLOBIN (BEAKER) (test 29.9 pg 25.6-32.2 tkxm=185) MEAN CORPUSCULAR HEMOGLOBIN CONC (BEAKER) (test 31.1 GM/DL 32.2-35.5 jnsh=183) RED CELL DISTRIBUTION WIDTH (BEAKER) (test 15.0 % 11.7-14.4 xokz=128) PLATELET COUNT (BEAKER) (test yumb=845) 128 K/CU MM 150-450 MEAN PLATELET VOLUME (BEAKER) (test xvfd=074) 11.3 fL 9.4-12.3 NUCLEATED RED BLOOD CELLS (BEAKER) (test 0 /100 WBC 0-0 dkiy=315) NEUTROPHILS RELATIVE PERCENT (BEAKER) (test 78 % hwhb=166) LYMPHOCYTES RELATIVE PERCENT (BEAKER) (test 11 % idcp=607) MONOCYTES RELATIVE PERCENT (BEAKER) (test 10 % tzyu=227) EOSINOPHILS RELATIVE PERCENT (BEAKER) (test 1 % aaap=269) BASOPHILS RELATIVE PERCENT (BEAKER) (test 0 % fedw=732) NEUTROPHILS ABSOLUTE COUNT (BEAKER) (test 9.07 K/ L 1.56-6.13 xhwc=421) LYMPHOCYTES ABSOLUTE COUNT (BEAKER) (test 1.25 K/ L 1.18-3.74 kvdr=945) MONOCYTES ABSOLUTE COUNT (BEAKER) (test 1.12 K/ L 0.24-0.36 hrzc=762) EOSINOPHILS ABSOLUTE COUNT (BEAKER) (test 0.12 K/ L 0.04-0.36 ainm=247) BASOPHILS ABSOLUTE COUNT (BEAKER) (test 0.05 K/ L 0.01-0.08 hheo=396) IMMATURE GRANULOCYTES-RELATIVE PERCENT (BEAKER) 1 % 0-1 (test hakm=3915) POCT-GLUCOSE [id number] 03:09:00 Test Item Value Reference Range Comments POC-GLUCOSE METER (BEAKER) 114 mg/dL 70-110 TESTED AT [address] (test tetq=1083) [place] [id number] POCT-GLUCOSE [id number] 03:09:00 Test Item Value Reference Range Comments POC-GLUCOSE METER (BEAKER) 122 mg/dL 70-110 TESTED AT [address] (test anag=7017) [place] [id number] BASIC METABOLIC [id number] 00:32:00 Test Item Value Reference Range Comments SODIUM (BEAKER) (test 144 meq/L 136-145 qrng=075) POTASSIUM (BEAKER) (test 4.2 meq/L 3.5-5.1 bien=735) CHLORIDE (BEAKER) (test 105 meq/L 98-107 illk=546) CO2 (BEAKER) (test 28 meq/L 22-29 uwvs=245) BLOOD UREA NITROGEN 30 mg/dL 7-21 (BEAKER) (test jqys=571) CREATININE (BEAKER) (test 1.56 mg/dL 0.57-1.25 culn=300) GLUCOSE RANDOM (BEAKER) 131 mg/dL 70-105 (test mzmx=596) CALCIUM (BEAKER) (test 9.0 mg/dL 8.4-10.2 ewyf=153) EGFR (BEAKER) (test 40 mL/min/1.73 sq m ESTIMATED GFR IS NOT gmdh=1387) ACCURATE CREATININE CLEARANCE IN PREDICTING GLOMERULAR FILTRATION RATE. ESTIMATED GFR IS NOT APPLICABLE FOR DIALYSIS PATIENTS. [id number] 00:31:00 Test Item Value Reference Range Comments PHOSPHORUS (BEAKER) (test pnns=530) 3.4 mg/dL 2.3-4.7 POCT-GLUCOSE [id number] 00:10:00 Test Item Value Reference Range Comments POC-GLUCOSE METER (BEAKER) 140 mg/dL 70-110 TESTED AT [address] (test naay=9623) [place] [id number] POCT-GLUCOSE [id number] 00:08:00 Test Item Value Reference Range Comments POC-GLUCOSE METER (BEAKER) 121 mg/dL 70-110 TESTED AT [address] (test cdmy=9506) [place] [id number] POCT-GLUCOSE [id number] 00:08:00 Test Item Value Reference Range Comments POC-GLUCOSE METER (BEAKER) 112 mg/dL 70-110 TESTED AT [address] (test eigg=8127) [facility] [address] POCT-GLUCOSE [id number] 00:08:00 Test Item Value Reference Range Comments POC-GLUCOSE METER (BEAKER) 84 mg/dL 70-110 TESTED AT [address] (test vsep=8969) [facility] [address] BASIC METABOLIC [id number] 20:36:00 Test Item Value Reference Range Comments SODIUM (BEAKER) (test 145 meq/L 136-145 koeb=952) POTASSIUM (BEAKER) (test 3.6 meq/L 3.5-5.1 edfc=207) CHLORIDE (BEAKER) (test 106 meq/L 98-107 zgfn=870) CO2 (BEAKER) (test 31 meq/L 22-29 zvbs=442) BLOOD UREA NITROGEN 32 mg/dL 7-21 (BEAKER) (test xitv=408) CREATININE (BEAKER) (test 1.56 mg/dL 0.57-1.25 pvqr=292) GLUCOSE RANDOM (BEAKER) 85 mg/dL 70-105 (test sfyk=404) CALCIUM (BEAKER) (test 9.0 mg/dL 8.4-10.2 kdnh=748) EGFR (BEAKER) (test 40 mL/min/1.73 sq m ESTIMATED GFR IS NOT fbyu=5570) ACCURATE CREATININE CLEARANCE IN PREDICTING GLOMERULAR FILTRATION RATE. ESTIMATED GFR IS NOT APPLICABLE FOR DIALYSIS PATIENTS. [id number] 20:36:00 Test Item Value Reference Range Comments MAGNESIUM (BEAKER) (test rwio=322) 2.4 mg/dL 1.6-2.6 [id number] 18:26:00 Test Item Value Reference Range Comments PHOSPHORUS (BEAKER) (test skuz=692) 2.4 mg/dL 2.3-4.7 BASIC METABOLIC [id number] 18:26:00 Test Item Value Reference Range Comments SODIUM (BEAKER) (test 144 meq/L 136-145 zuee=722) POTASSIUM (BEAKER) (test 3.9 meq/L 3.5-5.1 tbbq=043) CHLORIDE (BEAKER) (test 106 meq/L 98-107 iizo=387) CO2 (BEAKER) (test 30 meq/L 22-29 oltv=697) BLOOD UREA NITROGEN 32 mg/dL 7-21 (BEAKER) (test vimq=849) CREATININE (BEAKER) (test 1.67 mg/dL 0.57-1.25 pfph=631) GLUCOSE RANDOM (BEAKER) 141 mg/dL 70-105 (test fjtt=889) CALCIUM (BEAKER) (test 9.1 mg/dL 8.4-10.2 cwer=566) EGFR (BEAKER) (test 37 mL/min/1.73 sq m ESTIMATED GFR IS NOT goys=5840) ACCURATE CREATININE CLEARANCE IN PREDICTING GLOMERULAR FILTRATION RATE. ESTIMATED GFR IS NOT APPLICABLE FOR DIALYSIS PATIENTS. LACTIC ACID, ARTERIAL, WHOLE [id number] 18:22:00 Test Item Value Reference Range Comments LACTATE BLOOD ARTERIAL (2) (BEAKER) (test 1.0 mmol/L 0.5-2.2 stdg=1424) Effective 08/06/2015: Units/Reference Range ChangeNew: 0.5-2.2 mmol/L Previous: 5 -20 mg/dLPOCT-GLUCOSE [id number] 17:56:00 Test Item Value Reference Range Comments POC-GLUCOSE METER (BEAKER) 138 mg/dL 70-110 TESTED AT [address] (test ikwa=1845) [place] [address] [id number] 16:19:00 Test Item Value Reference Range Comments POTASSIUM (BEAKER) (test sifs=409) 3.8 meq/L 3.5-5.1 PRN - repeat potassium levels every 1 hour until glucose level is less than 450 mg/[id number] 16:06:00 Test Item Value Reference Range Comments PARTIAL THROMBOPLASTIN TIME (BEAKER) (test 71.3 seconds 22.5-36.0 etza=232) OXYGEN SATURATION, [id number] 15:58:00 Test Item Value Reference Range Comments O2 SATURATION (MEASURED) (BEAKER) (test fpfy=5597) 58.6 % calibrationPOCT-GLUCOSE [id number] 15:51:00 Test Item Value Reference Range Comments POC-GLUCOSE METER (BEAKER) 147 mg/dL 70-110 TESTED AT [address] (test wetu=5871) [place] [address] RAD, CHEST, 1 VIEW, NON [id number] 14:57:00Reason for exam:->s/p CVC placement Should this be performed at the bedside?->YesFINAL REPORT TECHNIQUE: Frontal chest radiograph dated 07/22/2017. CLINICAL HISTORY: CVC placement COMPARISON STUDY: Chest radiograph performed earlier the same day. IMPRESSION:There has been interval placement of a right-sided [place]- Jagdeep catheter with the tip in the main pulmonary artery. Impella device is unchanged in appearance. There is left lung base atelectasis. No pleural effusion or pneumothorax. Cardiomediastinal silhouette is normal in size. No pulmonary edema. Bonesare osteopenic. No fracture. Signed: Dawson Noel MDReport Verified Date/Time: 07/22/2017 14:57:48 Reading Location: [facility] Radiology Reading Room PROTEIN ELECTROPHORESIS, [id number] 14:45:00 Test Item Value Reference Range Comments ALBUMIN FRACTION (BEAKER) 3.0 g/dL 3.5-5.5 (test bhtj=937) ALPHA 1 FRACTION (BEAKER) 0.4 g/dL 0.2-0.4 (test zzpv=785) ALPHA 2 FRACTION (BEAKER) 0.5 g/dL 0.5-0.9 (test qfvc=899) BETA FRACTION (BEAKER) (test 1.0 g/dL 0.6-1.1 lkcv=067) GAMMA GLOBULIN FRACTION 1.2 g/dL 0.7-1.7 (BEAKER) (test ioga=445) INTERPRETATION-119 (BEAKER) Albumin decreased. Alpha (test awxz=1314) globulin percentages increased. This suggests an acute phase response. YWON-FGLHIBEKXKG-030 (BEAKER) Анна Encarnacion MD (electronic (test sson=2697) signature) PROTEIN TOTAL SERUM, SPEP 6.1 gm/dL 6.0-8.3 (BEAKER) (test rkzo=8633) POCT-GLUCOSE [id number] 14:34:00 Test Item Value Reference Range Comments POC-GLUCOSE METER (BEAKER) 137 mg/dL 70-110 TESTED AT [address] (test gtco=8453) [facility] [address] ANTI-NUCLEAR ANTIBODY (ROSLYN)2017-07-22 13:24:00 Test Item Value Reference Range Comments ANTI-NUCLEAR ANTIBODY (ROSLYN) (BEAKER) (test Positive Negative vgog=507) ROSLYN TITER AND [id number] 13:24:00 Test Item Value Reference Range Comments ROSLYN TITER (BEAKER) (test zhwu=1831) :640 ROSLYN PATTERN (BEAKER) (test qfkn=2334) Homogeneous [id number] 12:50:00 Test Item Value Reference Range Comments PHOSPHORUS (BEAKER) (test judj=510) 2.5 mg/dL 2.3-4.7 BASIC METABOLIC [id number] 12:50:00 Test Item Value Reference Range Comments SODIUM (BEAKER) (test 145 meq/L 136-145 moya=836) POTASSIUM (BEAKER) (test 3.6 meq/L 3.5-5.1 uwtb=152) CHLORIDE (BEAKER) (test 107 meq/L 98-107 btpu=611) CO2 (BEAKER) (test 30 meq/L 22-29 zxif=144) BLOOD UREA NITROGEN 37 mg/dL 7-21 (BEAKER) (test gzkt=871) CREATININE (BEAKER) (test 1.69 mg/dL 0.57-1.25 slhl=816) GLUCOSE RANDOM (BEAKER) 154 mg/dL 70-105 (test ozoy=153) CALCIUM (BEAKER) (test 8.9 mg/dL 8.4-10.2 falp=320) EGFR (BEAKER) (test 36 mL/min/1.73 sq m ESTIMATED GFR IS NOT pzgt=5807) ACCURATE CREATININE CLEARANCE IN PREDICTING GLOMERULAR FILTRATION RATE. ESTIMATED GFR IS NOT APPLICABLE FOR DIALYSIS PATIENTS. BLOOD GAS, [id number] 12:36:00 Test Item Value Reference Range Comments PH ARTERIAL (BEAKER) (test wdmi=239) 7.48 7.35-7.45 PCO2 ARTERIAL (BEAKER) (test ewxv=146) 44 mmHg 35-45 PO2 ARTERIAL (BEAKER) (test icow=536) 156 mmHg 80-90 O2 SATURATION ARTERIAL (BEAKER) (test wolx=831) 99.1 % 96.0-97.0 HCO3 ARTERIAL (BEAKER) (test jpar=253) 32 mmol/L 21-29 BASE EXCESS ARTERIAL (BEAKER) (test ufjn=964) 7.4 mmol/L -2.0-3.0 PATIENT TEMPERATURE (BEAKER) (test zgqi=4524) 37.4 C FIO2 (BEAKER) (test dcod=8315) 80.0 % POCT-GLUCOSE [id number] 12:26:00 Test Item Value Reference Range Comments POC-GLUCOSE METER (BEAKER) 147 mg/dL 70-110 TESTED AT [facility] [address] [facility] (test pcmu=2033) [facility] [address] URINE [id number] 11:56:00 Test Item Value Reference Range Comments CULTURE (BEAKER) (test uagl=2193) No growth POCT-GLUCOSE [id number] 11:11:00 Test Item Value Reference Range Comments POC-GLUCOSE METER (BEAKER) 172 mg/dL 70-110 TESTED AT [address] (test onkr=9927) [place] [id number] POCT-GLUCOSE [id number] 09:54:00 Test Item Value Reference Range Comments POC-GLUCOSE METER (BEAKER) 196 mg/dL 70-110 TESTED AT [address] (test mvjh=3577) [place] [address] LACTIC ACID, ARTERIAL, WHOLE [id number] 09:07:00 Test Item Value Reference Range Comments LACTATE BLOOD ARTERIAL (2) (BEAKER) (test 0.7 mmol/L 0.5-2.2 lsqb=5371) Effective 08/06/2015: Units/Reference Range ChangeNew: 0.5-2.2 mmol/L Previous: 5 -20 mg/[id number] 09:06:00 Test Item Value Reference Range Comments MAGNESIUM (BEAKER) (test hrxl=363) 2.2 mg/dL 1.6-2.6 POCT-GLUCOSE [id number] 08:39:00 Test Item Value Reference Range Comments POC-GLUCOSE METER (BEAKER) 188 mg/dL 70-110 TESTED AT [address] (test ghle=0738) [place] [id number] POCT-GLUCOSE [id number] 08:37:00 Test Item Value Reference Range Comments POC-GLUCOSE METER (BEAKER) 195 mg/dL 70-110 TESTED AT [address] (test vtfb=1140) [place] [id number] BLOOD GAS, [id number] 06:46:00 Test Item Value Reference Range Comments PH ARTERIAL (BEAKER) (test naoj=744) 7.47 7.35-7.45 PCO2 ARTERIAL (BEAKER) (test vrju=437) 44 mmHg 35-45 PO2 ARTERIAL (BEAKER) (test dcok=954) 57 mmHg 80-90 O2 SATURATION ARTERIAL (BEAKER) (test oqzg=280) 91.1 % 96.0-97.0 HCO3 ARTERIAL (BEAKER) (test lkyf=156) 32 mmol/L 21-29 BASE EXCESS ARTERIAL (BEAKER) (test jarc=703) 7.1 mmol/L -2.0-3.0 PATIENT TEMPERATURE (BEAKER) (test ineo=4363) 37.0 C [id number] 06:14:00 Test Item Value Reference Range Comments RPR SCREEN (BEAKER) (test iyuu=440) Nonreactive Nonreactive CALCIUM, [id number] 05:52:00 Test Item Value Reference Range Comments CALCIUM IONIZED (BEAKER) (test pmnp=284) 1.13 mmol/L 1.12-1.27 PH, BLOOD (BEAKER) (test xywu=4627) 7.46 [id number] 05:42:00 Test Item Value Reference Range Comments PHOSPHORUS (BEAKER) (test eele=049) 2.2 mg/dL 2.3-4.7 [id number] 05:42:00 Test Item Value Reference Range Comments MAGNESIUM (BEAKER) (test ojwx=754) 2.1 mg/dL 1.6-2.6 HEPATIC FUNCTION [id number] 05:42:00 Test Item Value Reference Range Comments TOTAL PROTEIN (BEAKER) (test utsq=172) 6.2 gm/dL 6.0-8.3 ALBUMIN (BEAKER) (test czfq=5157) 3.1 g/dL 3.5-5.0 BILIRUBIN TOTAL (BEAKER) (test eyjk=137) 1.4 mg/dL 0.2-1.2 BILIRUBIN DIRECT (BEAKER) (test yiwl=466) 0.7 mg/dL 0.1-0.5 ALKALINE PHOSPHATASE (BEAKER) (test fedc=423) 49 U/L 40-150 AST (SGOT) (BEAKER) (test sxnj=828) 74 U/L 5-34 ALT (SGPT) (BEAKER) (test cmff=518) 37 U/L 6-55 LACTATE DEHYDROGENASE (LDH)2017-07-22 05:42:00 Test Item Value Reference Range Comments LACTATE DEHYDROGENASE (BEAKER) (test trlj=747) 1339 U/L 125-220 [id number] 05:40:00 Test Item Value Reference Range Comments PHOSPHORUS (BEAKER) (test jbos=391) 2.2 mg/dL 2.3-4.7 BASIC METABOLIC [id number] 05:40:00 Test Item Value Reference Range Comments SODIUM (BEAKER) (test 144 meq/L 136-145 hede=650) POTASSIUM (BEAKER) (test 4.0 meq/L 3.5-5.1 iogi=911) CHLORIDE (BEAKER) (test 107 meq/L 98-107 jcsn=396) CO2 (BEAKER) (test 28 meq/L 22-29 rgck=182) BLOOD UREA NITROGEN 36 mg/dL 7-21 (BEAKER) (test bkbn=944) CREATININE (BEAKER) (test 1.79 mg/dL 0.57-1.25 kkxl=258) GLUCOSE RANDOM (BEAKER) 183 mg/dL 70-105 (test gjyi=725) CALCIUM (BEAKER) (test 8.9 mg/dL 8.4-10.2 xgpm=276) EGFR (BEAKER) (test 34 mL/min/1.73 sq m ESTIMATED GFR IS NOT wlxi=8629) ACCURATE CREATININE CLEARANCE IN PREDICTING GLOMERULAR FILTRATION RATE. ESTIMATED GFR IS NOT APPLICABLE FOR DIALYSIS PATIENTS. OXYGEN SATURATION, [id number] 05:29:00 Test Item Value Reference Range Comments O2 SATURATION (MEASURED) (BEAKER) (test hbve=9604) 54.7 % [id number] 05:29:00 Test Item Value Reference Range Comments PARTIAL THROMBOPLASTIN TIME (BEAKER) (test 70.7 seconds 22.5-36.0 vyta=751) CBC W/PLT COUNT & AUTO [id number] 05:24:00 Test Item Value Reference Range Comments WHITE BLOOD CELL COUNT (BEAKER) (test iyme=022) 13.0 K/ L 3.5-10.5 RED BLOOD CELL COUNT (BEAKER) (test nhhq=158) 3.04 M/ L 3.93-5.22 HEMOGLOBIN (BEAKER) (test apvo=880) 9.0 GM/DL 11.2-15.7 HEMATOCRIT (BEAKER) (test lviq=362) 29.0 % 34.1-44.9 MEAN CORPUSCULAR VOLUME (BEAKER) (test cwkn=997) 95.4 fL 79.4-94.8 MEAN CORPUSCULAR HEMOGLOBIN (BEAKER) (test 29.6 pg 25.6-32.2 xwfl=165) MEAN CORPUSCULAR HEMOGLOBIN CONC (BEAKER) (test 31.0 GM/DL 32.2-35.5 cmcm=857) RED CELL DISTRIBUTION WIDTH (BEAKER) (test 15.5 % 11.7-14.4 jvqp=985) PLATELET COUNT (BEAKER) (test yuef=804) 132 K/CU MM 150-450 MEAN PLATELET VOLUME (BEAKER) (test vaxg=896) 11.4 fL 9.4-12.3 NUCLEATED RED BLOOD CELLS (BEAKER) (test 0 /100 WBC 0-0 wici=336) NEUTROPHILS RELATIVE PERCENT (BEAKER) (test 80 % mtqh=403) LYMPHOCYTES RELATIVE PERCENT (BEAKER) (test 10 % mwku=569) MONOCYTES RELATIVE PERCENT (BEAKER) (test 9 % bpet=773) EOSINOPHILS RELATIVE PERCENT (BEAKER) (test 0 % bffb=276) BASOPHILS RELATIVE PERCENT (BEAKER) (test 0 % ceaz=997) NEUTROPHILS ABSOLUTE COUNT (BEAKER) (test 10.44 K/ L 1.56-6.13 sehl=926) LYMPHOCYTES ABSOLUTE COUNT (BEAKER) (test 1.29 K/ L 1.18-3.74 hokr=190) MONOCYTES ABSOLUTE COUNT (BEAKER) (test 1.12 K/ L 0.24-0.36 okzr=296) EOSINOPHILS ABSOLUTE COUNT (BEAKER) (test 0.01 K/ L 0.04-0.36 shfj=978) BASOPHILS ABSOLUTE COUNT (BEAKER) (test 0.04 K/ L 0.01-0.08 zdll=919) IMMATURE GRANULOCYTES-RELATIVE PERCENT (BEAKER) 1 % 0-1 (test lwgt=5931) RAD, CHEST, 1 VIEW, NON [id number] 04:45:00Reason for exam:->respiratory insufficiencyFINAL REPORT CLINICAL INDICATION: Respiratory insufficiency Comparison: 07/21/2017 The cardiomediastinal contours are stable. The left hemidiaphragm is slightly elevated. Centralpulmonary vascular congestion and bilateral parenchymal opacities are unchanged. There is no pneumothorax. A femoral Impella device remains in place. Signed: Adelso Sorensen Verified Date/Time:07/22/2017 04:45:12 Reading Location: [address] Reading Room POCT-GLUCOSE [id number] 03:01:00 Test Item Value Reference Range Comments POC-GLUCOSE METER (BEAKER) 115 mg/dL 70-110 TESTED AT [address] (test hsse=8714) [facility] [address] POCT-GLUCOSE [id number] 00:14:00 Test Item Value Reference Range Comments POC-GLUCOSE METER (BEAKER) 137 mg/dL 70-110 TESTED AT [address] (test gcqs=4770) [place] [id number] 00:09:00 Test Item Value Reference Range Comments POTASSIUM (BEAKER) (test ucbv=660) 3.8 meq/L 3.5-5.1 PRN - repeat glucose levels every 1 hour or as specified by insulin titration orders until glucose level is less than 450 mg/dLCheck Serum Potassium level 2 hours after oral potassium replacement completed or 30 min after intravenous potassium replacement.[id number] 00:09:00 Test Item Value Reference Range Comments MAGNESIUM (BEAKER) (test ltlo=465) 2.5 mg/dL 1.6-2.6 PRN - repeat glucose levels every 1 hour or as specified by insulin titration orders until glucose level is less than 450 mg/dLCheck Serum Potassium level 2 hours after oral potassium replacement completed or 30 min after intravenous potassium replacement.[id number] 00:09:00 Test Item Value Reference Range Comments PHOSPHORUS (BEAKER) (test lugn=133) 1.9 mg/dL 2.3-4.7 PRN - repeat glucose levels every 1 hour or as specified by insulin titration orders until glucose level is less than 450 mg/dLCheck Serum Potassium level 2 hours after oral potassium replacement completed or 30 min after intravenous potassium replacement.[id number] 00:09:00 Test Item Value Reference Range Comments GLUCOSE RANDOM (BEAKER) (test jnhb=714) 155 mg/dL 70-105 PRN - repeat glucose levels every 1 hour or as specified by insulin titration orders until glucose level is less than 450 mg/dLCheck Serum Potassium level 2 hours after oral potassium replacement completed or 30 min after intravenous potassium replacement.BASIC METABOLIC [id number] 00:09:00 Test Item Value Reference Range Comments SODIUM (BEAKER) (test 142 meq/L 136-145 aydd=113) POTASSIUM (BEAKER) (test 3.8 meq/L 3.5-5.1 fybd=996) CHLORIDE (BEAKER) (test 105 meq/L 98-107 xplq=167) CO2 (BEAKER) (test 30 meq/L 22-29 eppm=438) BLOOD UREA NITROGEN 37 mg/dL 7-21 (BEAKER) (test elnj=266) CREATININE (BEAKER) (test 1.80 mg/dL 0.57-1.25 mjpl=291) GLUCOSE RANDOM (BEAKER) 155 mg/dL 70-105 (test irif=690) CALCIUM (BEAKER) (test 8.8 mg/dL 8.4-10.2 tkfl=867) EGFR (BEAKER) (test 34 mL/min/1.73 sq m ESTIMATED GFR IS NOT bnkr=2608) ACCURATE CREATININE CLEARANCE IN PREDICTING GLOMERULAR FILTRATION RATE. ESTIMATED GFR IS NOT APPLICABLE FOR DIALYSIS PATIENTS. PRN - repeat glucose levels every 1 hour or as specified by insulin titration orders until glucose level is less than 450 mg/dLCheck Serum Potassium level 2 hours after oral potassium replacement completed or 30 min after intravenous potassium replacement.[id number] 00:06:00 Test Item Value Reference Range Comments PARTIAL THROMBOPLASTIN TIME (BEAKER) (test 62.0 seconds 22.5-36.0 ltbw=682) BLOOD GAS, [id number] 20:39:00 Test Item Value Reference Range Comments PH ARTERIAL (BEAKER) (test maam=544) 7.45 7.35-7.45 PCO2 ARTERIAL (BEAKER) (test kboi=392) 46 mmHg 35-45 PO2 ARTERIAL (BEAKER) (test fsjc=616) 64 mmHg 80-90 O2 SATURATION ARTERIAL (BEAKER) (test viju=378) 92.0 % 96.0-97.0 HCO3 ARTERIAL (BEAKER) (test mwao=317) 31 mmol/L 21-29 BASE EXCESS ARTERIAL (BEAKER) (test vsdm=804) 6.7 mmol/L -2.0-3.0 PATIENT TEMPERATURE (BEAKER) (test gjol=5274) 38.1 C FIO2 (BEAKER) (test kncw=8364) 80.0 % POTASSIUM-STAT [id number] 20:39:00 Test Item Value Reference Range Comments POTASSIUM (BEAKER) (test mxyx=179) 3.4 meq/L 3.6-5.5 [id number] 20:16:00 Test Item Value Reference Range Comments FERRITIN (BEAKER) (test miwn=652) 651 ng/mL 5-275 POCT-GLUCOSE [id number] 20:10:00 Test Item Value Reference Range Comments POC-GLUCOSE METER (BEAKER) 180 mg/dL 70-110 TESTED AT [facility] [address] [facility] (test laqw=7669) [facility] [address] POCT-GLUCOSE [id number] 20:10:00 Test Item Value Reference Range Comments POC-GLUCOSE METER (BEAKER) 197 mg/dL 70-110 TESTED AT [facility] [address] [facility] (test ushf=1019) [facility] [address] [id number] 19:54:00 Test Item Value Reference Range Comments PARTIAL THROMBOPLASTIN TIME (BEAKER) (test 62.4 seconds 22.5-36.0 exnp=385) [id number] 19:53:00 Test Item Value Reference Range Comments MAGNESIUM (BEAKER) (test holb=798) 2.2 mg/dL 1.6-2.6 HEPATITIS A ANTIBODY, [id number] 19:25:00 Test Item Value Reference Range Comments HEPATITIS A IGG ANTIBODY (BEAKER) (test qveb=4708) Reactive Nonreactive GLUCOSE-STAT [id number] 19:24:00 Test Item Value Reference Range Comments GLUCOSE RANDOM (BEAKER) (test lziw=488) 174 mg/dL 70-110 HGB/HCT (H&H) - STAT [id number] 19:24:00 Test Item Value Reference Range Comments HEMOGLOBIN (BEAKER) (test ezru=727) 10.1 g/dL 12.0-15.0 HEMATOCRIT (BEAKER) (test zuwl=014) 30.0 % 36.0-45.0 POTASSIUM-STAT [id number] 19:24:00 Test Item Value Reference Range Comments POTASSIUM (BEAKER) (test kjry=170) 3.4 meq/L 3.6-5.5 HEPATITIS B CORE ANTIBODY, [id number] 19:21:00 Test Item Value Reference Range Comments HEPATITIS B CORE TOTAL ANTIBODY (BEAKER) (test Nonreactive Nonreactive tbxf=726) HEPATITIS PANEL, [id number] 19:21:00 Test Item Value Reference Range Comments HEPATITIS A IGM ANTIBODY (BEAKER) (test Nonreactive Nonreactive ppjd=248) HEPATITIS B CORE IGM ANTIBODY (BEAKER) (test Nonreactive Nonreactive kwwc=735) HEPATITIS C ANTIBODY (BEAKER) (test qnwh=749) Nonreactive Nonreactive HEPATITIS B SURFACE ANTIGEN (2) (BEAKER) (test Nonreactive Nonreactive crmb=9331) HIV-1 ANTIGEN WITH HIV-1/2 [id number] 19:21:00 Test Item Value Reference Range Comments HIV-1 ANTIGEN WITH HIV 1\T\2 ANTIBODY (2) Nonreactive Nonreactive (BEAKER) (test imgy=0757) BASIC METABOLIC [id number] 18:05:00 Test Item Value Reference Range Comments SODIUM (BEAKER) (test 141 meq/L 136-145 qhtu=119) POTASSIUM (BEAKER) (test 4.0 meq/L 3.5-5.1 gnty=935) CHLORIDE (BEAKER) (test 104 meq/L 98-107 bifl=107) CO2 (BEAKER) (test 26 meq/L 22-29 eglt=889) BLOOD UREA NITROGEN 41 mg/dL 7-21 (BEAKER) (test nibn=206) CREATININE (BEAKER) (test 2.07 mg/dL 0.57-1.25 mtdm=401) GLUCOSE RANDOM (BEAKER) 242 mg/dL 70-105 (test xmgp=545) CALCIUM (BEAKER) (test 8.9 mg/dL 8.4-10.2 wouj=090) EGFR (BEAKER) (test 29 mL/min/1.73 sq m ESTIMATED GFR IS NOT hncf=4254) ACCURATE CREATININE CLEARANCE IN PREDICTING GLOMERULAR FILTRATION RATE. ESTIMATED GFR IS NOT APPLICABLE FOR DIALYSIS PATIENTS. Check Serum Potassium level 2 hours after oral potassium replacement completed or 30 min after intravenous potassium replacement.[id number] 18:02:00 Test Item Value Reference Range Comments POTASSIUM (BEAKER) (test hhzw=996) 4.0 meq/L 3.5-5.1 Check Serum Potassium level 2 hours after oral potassium replacement completed or 30 min after intravenous potassium replacement.[id number] 18:02:00 Test Item Value Reference Range Comments MAGNESIUM (BEAKER) (test jjbf=731) 2.2 mg/dL 1.6-2.6 Check Serum Potassium level 2 hours after oral potassium replacement completed or 30 min after intravenous potassium replacement.[id number] 18:02:00 Test Item Value Reference Range Comments PHOSPHORUS (BEAKER) (test yuyi=841) 2.1 mg/dL 2.3-4.7 Check Serum Potassium level 2 hours after oral potassium replacement completed or 30 min after intravenous potassium replacement.POCT-GLUCOSE [id number] 17:31:00 Test Item Value Reference Range Comments POC-GLUCOSE METER (BEAKER) 253 mg/dL 70-110 TESTED AT [address] (test agdw=7807) [place] [id number] VITAMIN D, [id number] 17:31:00 Test Item Value Reference Range Comments VITAMIN D 25-OH (BEAKER) (test nofm=9334) 5.8 ng/mL 6.6-49.9 Effective 01/12/2017: Reference Range ChangeNew: 6.6-49.9 ng/mL Previous: 13.0 -47.8 ng/mLRecommended Vitamin D Target Range: 30.0-40.0 ng/mLPOCT-GLUCOSE [id number] 17:31:00 Test Item Value Reference Range Comments POC-GLUCOSE METER (BEAKER) 269 mg/dL 70-110 TESTED AT [address] (test fuge=1667) [place] [address] [id number] 17:09:00 Test Item Value Reference Range Comments TRANSFERRIN (BEAKER) (test afia=889) 166 mg/dL 174-382 [id number] 17:09:00 Test Item Value Reference Range Comments PREALBUMIN (BEAKER) (test yznx=805) 14 mg/dL 14-45 IRON, [id number] 17:09:00 Test Item Value Reference Range Comments IRON (BEAKER) (test uyze=013) 57 ug/dL 40-160 TROPONIN [id number] 16:59:00 Test Item Value Reference Range Comments TROPONIN I (BEAKER) (test dtbd=496) 45.70 ng/mL 0.00-0.03 Troponin I (TnI) levels [...] failure, acidosis, acute neurological disease, and persistent tachyarrhythmia.[id number] 16:49:00 Test Item Value Reference Range Comments CREATININE (BEAKER) (test 2.17 mg/dL 0.57-1.25 znpv=177) EGFR (BEAKER) (test 27 mL/min/1.73 sq m ESTIMATED GFR IS NOT zojt=0381) ACCURATE CREATININE CLEARANCE IN PREDICTING GLOMERULAR FILTRATION RATE. ESTIMATED GFR IS NOT APPLICABLE FOR DIALYSIS PATIENTS. URIC [id number] 16:48:00 Test Item Value Reference Range Comments URIC ACID (BEAKER) (test mohp=218) 8.2 mg/dL 2.6-7.2 LIPID [id number] 16:48:00 Test Item Value Reference Range Comments TRIGLYCERIDES (BEAKER) (test fyzh=149) 122 mg/dL CHOLESTEROL (BEAKER) (test yhld=714) 204 mg/dL HDL CHOLESTEROL (BEAKER) (test clox=973) 85 mg/dL LDL CHOLESTEROL CALCULATED (BEAKER) (test 95 mg/dL geln=135) Triglyceride Reference Range: Low Risk <150 Borderline 150- 199 High Risk 200-499 Very High Risk >=500Cholesterol Reference Range: Low Risk <200 Borderline 200-239 High Risk > 240HDL Cholesterol Reference Range: Low Risk >=60 High Risk <40LDL Cholesterol Reference Range: Optimal <100 Near Optimal 100-129 Borderline 130-159 High 160-189 Very High >=[id number] 16:48:00 Test Item Value Reference Range Comments AMYLASE (BEAKER) (test zodj=783) 228 U/L 25-125 GAMMA GLUTAMYL TRANSFERASE (GGT)[id number] 16:48:00 Test Item Value Reference Range Comments GAMMA GLUTAMYL TRANSFERASE (BEAKER) (test nmru=411) 52 U/L 9-64 RETICULOCYTE [id number] 16:39:00 Test Item Value Reference Range Comments RETICULOCYTE COUNT PCT (BEAKER) (test dosz=918) 3.8 % 0.5-1.7 TROPONIN [id number] 13:49:00 Test Item Value Reference Range Comments TROPONIN I (BEAKER) (test rjeo=976) 43.19 ng/mL 0.00-0.03 Troponin I (TnI) levels [...] acute neurological disease, and persistent tachyarrhythmia.BASIC METABOLIC [id number] 12:22:00 Test Item Value Reference Range Comments SODIUM (BEAKER) (test 141 meq/L 136-145 piip=971) POTASSIUM (BEAKER) (test 3.9 meq/L 3.5-5.1 yqlo=731) CHLORIDE (BEAKER) (test 102 meq/L 98-107 cmdr=423) CO2 (BEAKER) (test 28 meq/L 22-29 klgn=481) BLOOD UREA NITROGEN 40 mg/dL 7-21 (BEAKER) (test dllk=356) CREATININE (BEAKER) (test 2.20 mg/dL 0.57-1.25 bgwr=477) GLUCOSE RANDOM (BEAKER) 238 mg/dL 70-105 (test bnbg=434) CALCIUM (BEAKER) (test 8.9 mg/dL 8.4-10.2 lweo=593) EGFR (BEAKER) (test 27 mL/min/1.73 sq m ESTIMATED GFR IS NOT nhsn=4236) ACCURATE CREATININE CLEARANCE IN PREDICTING GLOMERULAR FILTRATION RATE. ESTIMATED GFR IS NOT APPLICABLE FOR DIALYSIS PATIENTS. [id number] 12:17:00 Test Item Value Reference Range Comments POTASSIUM (BEAKER) (test rfqa=263) 3.9 meq/L 3.5-5.1 [id number] 12:17:00 Test Item Value Reference Range Comments MAGNESIUM (BEAKER) (test sdpl=735) 2.4 mg/dL 1.6-2.6 [id number] 12:17:00 Test Item Value Reference Range Comments PHOSPHORUS (BEAKER) (test lifa=268) 3.7 mg/dL 2.3-4.7 [id number] 12:17:00 Test Item Value Reference Range Comments GLUCOSE RANDOM (BEAKER) (test krze=777) 238 mg/dL 70-105 [id number] 12:04:00 Test Item Value Reference Range Comments PARTIAL THROMBOPLASTIN TIME (BEAKER) (test 59.3 seconds 22.5-36.0 ycbf=748) SPUTUM CULTURE + GRAM [id number] 11:47:00 Test Item Value Reference Range Comments CULTURE (BEAKER) (test <1+ Normal respiratory pascual tucb=1531) present GRAM STAIN RESULT (BEAKER) 1+ WBCs (test gghn=0143) GRAM STAIN RESULT (BEAKER) 0-5 epithelial cells (test mdnt=93234) GRAM STAIN RESULT (BEAKER) No organisms seen (test gghz=86124) HEMOGLOBIN AND [id number] 11:26:00 Test Item Value Reference Range Comments HEMOGLOBIN (BEAKER) (test ckkg=843) 7.9 GM/DL 11.2-15.7 HEMATOCRIT (BEAKER) (test psty=802) 26.5 % 34.1-44.9 BLOOD GAS, [id number] 10:43:00 Test Item Value Reference Range Comments PH ARTERIAL (BEAKER) (test yfnz=634) 7.42 7.35-7.45 PCO2 ARTERIAL (BEAKER) (test lkpv=142) 44 mmHg 35-45 PO2 ARTERIAL (BEAKER) (test enqa=378) 51 mmHg 80-90 O2 SATURATION ARTERIAL (BEAKER) (test bdce=052) 88.2 % 96.0-97.0 HCO3 ARTERIAL (BEAKER) (test yeir=001) 28 mmol/L 21-29 BASE EXCESS ARTERIAL (BEAKER) (test tlzt=419) 3.2 mmol/L -2.0-3.0 PATIENT TEMPERATURE (BEAKER) (test yfwj=6066) 36.0 C FIO2 (BEAKER) (test ykby=2015) 80.0 % URINE [id number] 09:44:00 Test Item Value Reference Range Comments CULTURE (BEAKER) (test pjmk=5245) No growth BASIC METABOLIC [id number] 06:28:00 Test Item Value Reference Range Comments SODIUM (BEAKER) (test 141 meq/L 136-145 dknx=747) POTASSIUM (BEAKER) (test 4.1 meq/L 3.5-5.1 qtyc=008) CHLORIDE (BEAKER) (test 101 meq/L 98-107 gjlg=469) CO2 (BEAKER) (test 29 meq/L 22-29 rezx=917) BLOOD UREA NITROGEN 40 mg/dL 7-21 (BEAKER) (test jgzr=248) CREATININE (BEAKER) (test 2.46 mg/dL 0.57-1.25 xfvn=556) GLUCOSE RANDOM (BEAKER) 236 mg/dL 70-105 (test bmnq=446) CALCIUM (BEAKER) (test 8.6 mg/dL 8.4-10.2 uwzr=991) EGFR (BEAKER) (test 24 mL/min/1.73 sq m ESTIMATED GFR IS NOT sgdi=0143) ACCURATE CREATININE CLEARANCE IN PREDICTING GLOMERULAR FILTRATION RATE. ESTIMATED GFR IS NOT APPLICABLE FOR DIALYSIS PATIENTS. [id number] 06:26:00 Test Item Value Reference Range Comments PHOSPHORUS (BEAKER) (test wodq=934) 4.6 mg/dL 2.3-4.7 POCT-GLUCOSE [id number] 06:05:00 Test Item Value Reference Range Comments POC-GLUCOSE METER (BEAKER) 278 mg/dL 70-110 TESTED AT [address] (test dfgn=7948) [facility] [id number] POCT-GLUCOSE [id number] 06:05:00 Test Item Value Reference Range Comments POC-GLUCOSE METER (BEAKER) 231 mg/dL 70-110 TESTED AT [address] (test llfh=8067) [place] [id number] POCT-GLUCOSE [id number] 06:05:00 Test Item Value Reference Range Comments POC-GLUCOSE METER (BEAKER) 190 mg/dL 70-110 TESTED AT [address] (test gecw=5879) [place] [id number] 05:56:00 Test Item Value Reference Range Comments PARTIAL THROMBOPLASTIN TIME (BEAKER) (test 72.5 seconds 22.5-36.0 epow=733) RAD, CHEST, 1 VIEW, NON [id number] 04:38:00Reason for exam:->respiratory insufficiencyFINAL REPORT CLINICAL INDICATION: Respiratory insufficiency Comparison: 07/20/2017 The cardiomediastinal contours are stable. Central pulmonary vascular prominence and bilateral parenchymal opacities are similar within variation of acquisition technique. There is no pneumothorax. A femoral Impella device is stable in position. Signed: Adelso Sorensen MDReport Verified Date/Time:07/21/2017 04:38:32 Reading Location: [address] Reading Room BASIC METABOLIC [id number] 04:06:00 Test Item Value Reference Range Comments SODIUM (BEAKER) (test 142 meq/L 136-145 droh=530) POTASSIUM (BEAKER) (test 3.9 meq/L 3.5-5.1 pxwh=938) CHLORIDE (BEAKER) (test 102 meq/L 98-107 botn=559) CO2 (BEAKER) (test 31 meq/L 22-29 nsot=722) BLOOD UREA NITROGEN 40 mg/dL 7-21 (BEAKER) (test jlfw=096) CREATININE (BEAKER) (test 2.37 mg/dL 0.57-1.25 remu=736) GLUCOSE RANDOM (BEAKER) 206 mg/dL 70-105 (test hrei=585) CALCIUM (BEAKER) (test 8.5 mg/dL 8.4-10.2 ynis=526) EGFR (BEAKER) (test 25 mL/min/1.73 sq m ESTIMATED GFR IS NOT dvki=4141) ACCURATE CREATININE CLEARANCE IN PREDICTING GLOMERULAR FILTRATION RATE. ESTIMATED GFR IS NOT APPLICABLE FOR DIALYSIS PATIENTS. BLOOD GAS, [id number] 03:53:00 Test Item Value Reference Range Comments PH ARTERIAL (BEAKER) (test elhh=937) 7.36 7.35-7.45 PCO2 ARTERIAL (BEAKER) (test fqqm=242) 55 mmHg 35-45 PO2 ARTERIAL (BEAKER) (test qpji=424) 94 mmHg 80-90 O2 SATURATION ARTERIAL (BEAKER) (test vbjo=379) 96.0 % 96.0-97.0 HCO3 ARTERIAL (BEAKER) (test cexn=926) 30 mmol/L 21-29 BASE EXCESS ARTERIAL (BEAKER) (test ioid=712) 4.2 mmol/L -2.0-3.0 PATIENT TEMPERATURE (BEAKER) (test ktel=9135) 38.8 C FIO2 (BEAKER) (test rofe=0512) 80.0 % CALCIUM, [id number] 03:51:00 Test Item Value Reference Range Comments CALCIUM IONIZED (BEAKER) (test rpdw=781) 1.07 mmol/L 1.12-1.27 PH, BLOOD (BEAKER) (test xixf=0540) 7.35 OXYGEN SATURATION, [id number] 03:50:00 Test Item Value Reference Range Comments O2 SATURATION (MEASURED) (BEAKER) (test alxw=9011) 72.6 % [id number] 03:47:00 Test Item Value Reference Range Comments PHOSPHORUS (BEAKER) (test udpo=280) 4.5 mg/dL 2.3-4.7 [id number] 03:47:00 Test Item Value Reference Range Comments MAGNESIUM (BEAKER) (test lwox=037) 2.1 mg/dL 1.6-2.6 HEPATIC FUNCTION [id number] 03:47:00 Test Item Value Reference Range Comments TOTAL PROTEIN (BEAKER) (test mync=401) 6.1 gm/dL 6.0-8.3 ALBUMIN (BEAKER) (test huoj=0630) 3.1 g/dL 3.5-5.0 BILIRUBIN TOTAL (BEAKER) (test ogvn=356) 1.4 mg/dL 0.2-1.2 BILIRUBIN DIRECT (BEAKER) (test cksa=776) 0.6 mg/dL 0.1-0.5 ALKALINE PHOSPHATASE (BEAKER) (test sxrl=303) 45 U/L 40-150 AST (SGOT) (BEAKER) (test uqbn=512) 94 U/L 5-34 ALT (SGPT) (BEAKER) (test gaka=557) 48 U/L 6-55 LACTATE DEHYDROGENASE (LDH)2017-07-21 03:47:00 Test Item Value Reference Range Comments LACTATE DEHYDROGENASE (BEAKER) (test nxjn=437) 1470 U/L 125-220 CBC W/PLT COUNT & AUTO [id number] 03:41:00 Test Item Value Reference Range Comments WHITE BLOOD CELL COUNT (BEAKER) (test tglc=766) 14.1 K/ L 3.5-10.5 RED BLOOD CELL COUNT (BEAKER) (test tknl=890) 2.81 M/ L 3.93-5.22 HEMOGLOBIN (BEAKER) (test xrmw=768) 8.6 GM/DL 11.2-15.7 HEMATOCRIT (BEAKER) (test xmuy=462) 28.2 % 34.1-44.9 MEAN CORPUSCULAR VOLUME (BEAKER) (test hozl=560) 100.4 fL 79.4-94.8 MEAN CORPUSCULAR HEMOGLOBIN (BEAKER) (test 30.6 pg 25.6-32.2 txvc=181) MEAN CORPUSCULAR HEMOGLOBIN CONC (BEAKER) (test 30.5 GM/DL 32.2-35.5 fwvj=939) RED CELL DISTRIBUTION WIDTH (BEAKER) (test 13.1 % 11.7-14.4 woic=978) PLATELET COUNT (BEAKER) (test kgzc=624) 140 K/CU MM 150-450 MEAN PLATELET VOLUME (BEAKER) (test nbnv=674) 11.1 fL 9.4-12.3 NUCLEATED RED BLOOD CELLS (BEAKER) (test 0 /100 WBC 0-0 xoou=212) NEUTROPHILS RELATIVE PERCENT (BEAKER) (test 86 % jfab=733) LYMPHOCYTES RELATIVE PERCENT (BEAKER) (test 6 % pqnd=639) MONOCYTES RELATIVE PERCENT (BEAKER) (test 8 % yyir=074) EOSINOPHILS RELATIVE PERCENT (BEAKER) (test 0 % klod=509) BASOPHILS RELATIVE PERCENT (BEAKER) (test 0 % atja=029) NEUTROPHILS ABSOLUTE COUNT (BEAKER) (test 12.13 K/ L 1.56-6.13 rwzp=358) LYMPHOCYTES ABSOLUTE COUNT (BEAKER) (test 0.81 K/ L 1.18-3.74 krmm=265) MONOCYTES ABSOLUTE COUNT (BEAKER) (test 1.07 K/ L 0.24-0.36 rewl=307) EOSINOPHILS ABSOLUTE COUNT (BEAKER) (test 0.00 K/ L 0.04-0.36 pjyb=943) BASOPHILS ABSOLUTE COUNT (BEAKER) (test 0.02 K/ L 0.01-0.08 muwz=156) IMMATURE GRANULOCYTES-RELATIVE PERCENT (BEAKER) 1 % 0-1 (test rgce=0974) LACTIC ACID, ARTERIAL, WHOLE [id number] 03:39:00 Test Item Value Reference Range Comments LACTATE BLOOD ARTERIAL (2) (BEAKER) (test 0.9 mmol/L 0.5-2.2 yimd=4023) Effective 08/06/2015: Units/Reference Range ChangeNew: 0.5-2.2 mmol/L Previous: 5 -20 mg/dLTROPONIN [id number] 00:12:00 Test Item Value Reference Range Comments TROPONIN I (BEAKER) (test belv=267) 60.74 ng/mL 0.00-0.03 Troponin I (TnI) levels [...] failure, acidosis, acute neurological disease, and persistent tachyarrhythmia.[id number] 23:42:00 Test Item Value Reference Range Comments PHOSPHORUS (BEAKER) (test wohu=720) 4.9 mg/dL 2.3-4.7 BASIC METABOLIC [id number] 23:42:00 Test Item Value Reference Range Comments SODIUM (BEAKER) (test 141 meq/L 136-145 axew=541) POTASSIUM (BEAKER) (test 4.2 meq/L 3.5-5.1 zbwc=789) CHLORIDE (BEAKER) (test 102 meq/L 98-107 bjgq=670) CO2 (BEAKER) (test 29 meq/L 22-29 lrgt=584) BLOOD UREA NITROGEN 40 mg/dL 7-21 (BEAKER) (test ukks=809) CREATININE (BEAKER) (test 2.36 mg/dL 0.57-1.25 noon=747) GLUCOSE RANDOM (BEAKER) 200 mg/dL 70-105 (test xhtn=641) CALCIUM (BEAKER) (test 8.4 mg/dL 8.4-10.2 hkto=558) EGFR (BEAKER) (test 25 mL/min/1.73 sq m ESTIMATED GFR IS NOT txca=3147) ACCURATE CREATININE CLEARANCE IN PREDICTING GLOMERULAR FILTRATION RATE. ESTIMATED GFR IS NOT APPLICABLE FOR DIALYSIS PATIENTS. [id number] 23:39:00 Test Item Value Reference Range Comments PARTIAL THROMBOPLASTIN TIME (BEAKER) (test 78.1 seconds 22.5-36.0 rvhl=593) POCT-GLUCOSE [id number] 23:28:00 Test Item Value Reference Range Comments POC-GLUCOSE METER (BEAKER) 250 mg/dL 70-110 TESTED AT [facility] [address] [facility] (test tdfy=8527) [facility] [address] POCT-GLUCOSE [id number] 22:19:00 Test Item Value Reference Range Comments POC-GLUCOSE METER (BEAKER) 202 mg/dL 70-110 TESTED AT [address] (test sdle=0175) [facility] [address] HEPATIC FUNCTION [id number] 21:45:00 Test Item Value Reference Range Comments TOTAL PROTEIN (BEAKER) (test azob=374) 5.9 gm/dL 6.0-8.3 ALBUMIN (BEAKER) (test mdgq=7017) 3.1 g/dL 3.5-5.0 BILIRUBIN TOTAL (BEAKER) (test lchz=706) 1.0 mg/dL 0.2-1.2 BILIRUBIN DIRECT (BEAKER) (test gsdf=733) 0.5 mg/dL 0.1-0.5 ALKALINE PHOSPHATASE (BEAKER) (test zodl=651) 46 U/L 40-150 AST (SGOT) (BEAKER) (test axmu=452) 95 U/L 5-34 ALT (SGPT) (BEAKER) (test zlgt=351) 47 U/L 6-55 BASIC METABOLIC [id number] 21:45:00 Test Item Value Reference Range Comments SODIUM (BEAKER) (test 141 meq/L 136-145 romp=211) POTASSIUM (BEAKER) (test 4.0 meq/L 3.5-5.1 lldj=936) CHLORIDE (BEAKER) (test 103 meq/L 98-107 ybyl=933) CO2 (BEAKER) (test 27 meq/L 22-29 fezh=800) BLOOD UREA NITROGEN 40 mg/dL 7-21 (BEAKER) (test pqao=850) CREATININE (BEAKER) (test 2.30 mg/dL 0.57-1.25 vlwx=227) GLUCOSE RANDOM (BEAKER) 192 mg/dL 70-105 (test qrzl=650) CALCIUM (BEAKER) (test 8.4 mg/dL 8.4-10.2 fmli=344) EGFR (BEAKER) (test 25 mL/min/1.73 sq m ESTIMATED GFR IS NOT nldl=5265) ACCURATE CREATININE CLEARANCE IN PREDICTING GLOMERULAR FILTRATION RATE. ESTIMATED GFR IS NOT APPLICABLE FOR DIALYSIS PATIENTS. [id number] 21:38:00 Test Item Value Reference Range Comments MAGNESIUM (BEAKER) (test brtl=119) 2.1 mg/dL 1.6-2.6 LACTIC ACID, ARTERIAL, WHOLE [id number] 21:32:00 Test Item Value Reference Range Comments LACTATE BLOOD ARTERIAL (2) (BEAKER) (test 0.6 mmol/L 0.5-2.2 csnc=1019) Effective 08/06/2015: Units/Reference Range ChangeNew: 0.5-2.2 mmol/L Previous: 5 -20 mg/dLPOCT-GLUCOSE [id number] 21:21:00 Test Item Value Reference Range Comments POC-GLUCOSE METER (BEAKER) 198 mg/dL 70-110 TESTED AT [address] (test zxrd=9158) [facility] [address] POCT-GLUCOSE [id number] 21:21:00 Test Item Value Reference Range Comments POC-GLUCOSE METER (BEAKER) 155 mg/dL 70-110 TESTED AT [address] (test taby=3822) [facility] [address] POCT-GLUCOSE [id number] 21:21:00 Test Item Value Reference Range Comments POC-GLUCOSE METER (BEAKER) 67 mg/dL 70-110 TESTED AT [address] (test glen=9981) [facility] [address] BLOOD GAS, [id number] 21:16:00 Test Item Value Reference Range Comments PH ARTERIAL (BEAKER) (test jcqz=789) 7.34 7.35-7.45 PCO2 ARTERIAL (BEAKER) (test spuo=625) 56 mmHg 35-45 PO2 ARTERIAL (BEAKER) (test xvmf=406) 107 mmHg 80-90 O2 SATURATION ARTERIAL (BEAKER) (test fthh=719) 97.3 % 96.0-97.0 HCO3 ARTERIAL (BEAKER) (test idoh=877) 29 mmol/L 21-29 BASE EXCESS ARTERIAL (BEAKER) (test alnz=132) 2.7 mmol/L -2.0-3.0 PATIENT TEMPERATURE (BEAKER) (test hhmf=8370) 37.8 C FIO2 (BEAKER) (test ozoe=0168) 100.0 % GLUCOSE-STAT [id number] 21:16:00 Test Item Value Reference Range Comments GLUCOSE RANDOM (BEAKER) (test nhcf=829) 188 mg/dL 70-110 HGB/HCT (H&H) - STAT [id number] 21:16:00 Test Item Value Reference Range Comments HEMOGLOBIN (BEAKER) (test bdry=609) 9.9 g/dL 12.0-15.0 HEMATOCRIT (BEAKER) (test rhjc=131) 29.0 % 36.0-45.0 SODIUM NA-STAT [id number] 21:15:00 Test Item Value Reference Range Comments SODIUM (BEAKER) (test fsbc=956) 140 meq/L 135-148 POTASSIUM-STAT [id number] 21:15:00 Test Item Value Reference Range Comments POTASSIUM (BEAKER) (test elcq=180) 3.9 meq/L 3.6-5.5 BLOOD GAS, [id number] 19:44:00 Test Item Value Reference Range Comments PH ARTERIAL (BEAKER) (test jask=865) 7.34 7.35-7.45 PCO2 ARTERIAL (BEAKER) (test ffcn=143) 31 mmHg 35-45 PO2 ARTERIAL (BEAKER) (test zhdn=380) 68 mmHg 80-90 O2 SATURATION ARTERIAL (BEAKER) (test vmim=361) 92.1 % 96.0-97.0 HCO3 ARTERIAL (BEAKER) (test dlrm=163) 16 mmol/L 21-29 BASE EXCESS ARTERIAL (BEAKER) (test tjln=892) -8.7 mmol/L -2.0-3.0 PATIENT TEMPERATURE (BEAKER) (test hfhv=3578) 37.7 C FIO2 (BEAKER) (test dcoq=4697) 50.0 % POCT-GLUCOSE [id number] 18:30:00 Test Item Value Reference Range Comments POC-GLUCOSE METER (BEAKER) 90 mg/dL 70-110 TESTED AT [facility] [address] [facility] (test gbxk=1588) [facility] [address] TROPONIN [id number] 18:05:00 Test Item Value Reference Range Comments TROPONIN I (BEAKER) (test suez=051) 76.69 ng/mL 0.00-0.03 Troponin I (TnI) levels [...] acute neurological disease, and persistent tachyarrhythmia.BASIC METABOLIC [id number] 17:56:00 Test Item Value Reference Range Comments SODIUM (BEAKER) (test 143 meq/L 136-145 lquq=056) POTASSIUM (BEAKER) (test 3.8 meq/L 3.5-5.1 fnpv=424) CHLORIDE (BEAKER) (test 104 meq/L 98-107 bvej=143) CO2 (BEAKER) (test 29 meq/L 22-29 ummg=158) BLOOD UREA NITROGEN 37 mg/dL 7-21 (BEAKER) (test hjtp=052) CREATININE (BEAKER) (test 2.45 mg/dL 0.57-1.25 eihv=353) GLUCOSE RANDOM (BEAKER) 107 mg/dL 70-105 (test hqnt=325) CALCIUM (BEAKER) (test 8.6 mg/dL 8.4-10.2 salv=117) EGFR (BEAKER) (test 24 mL/min/1.73 sq m ESTIMATED GFR IS NOT coej=2348) ACCURATE CREATININE CLEARANCE IN PREDICTING GLOMERULAR FILTRATION RATE. ESTIMATED GFR IS NOT APPLICABLE FOR DIALYSIS PATIENTS. [id number] 17:43:00 Test Item Value Reference Range Comments PHOSPHORUS (BEAKER) (test masg=622) 4.8 mg/dL 2.3-4.7 [id number] 17:43:00 Test Item Value Reference Range Comments MAGNESIUM (BEAKER) (test ktyi=290) 2.4 mg/dL 1.6-2.6 [id number] 17:34:00 Test Item Value Reference Range Comments PARTIAL THROMBOPLASTIN TIME (BEAKER) (test 101.4 seconds 22.5-36.0 bppv=354) BLOOD GAS, [id number] 17:23:00 Test Item Value Reference Range Comments PH ARTERIAL (BEAKER) (test zcok=481) 7.36 7.35-7.45 PCO2 ARTERIAL (BEAKER) (test bvzv=230) 60 mmHg 35-45 PO2 ARTERIAL (BEAKER) (test ezng=582) 82 mmHg 80-90 O2 SATURATION ARTERIAL (BEAKER) (test adjc=584) 95.1 % 96.0-97.0 HCO3 ARTERIAL (BEAKER) (test oepj=034) 33 mmol/L 21-29 BASE EXCESS ARTERIAL (BEAKER) (test hyxi=210) 6.0 mmol/L -2.0-3.0 PATIENT TEMPERATURE (BEAKER) (test cknr=3582) 37.4 C FIO2 (BEAKER) (test uanr=0686) 70.0 % GLUCOSE-STAT [id number] 17:20:00 Test Item Value Reference Range Comments GLUCOSE RANDOM (BEAKER) (test xmcv=628) 106 mg/dL 70-110 POCT-GLUCOSE [id number] 16:32:00 Test Item Value Reference Range Comments POC-GLUCOSE METER (AKER) 115 mg/dL 70-110 TESTED AT [address] (test jyxx=9160) [facility] [address] VANCOMYCIN LEVEL, [id number] 16:10:00 Test Item Value Reference Range Comments VANCOMYCIN TROUGH (AKER) (test ycov=138) 17.0 ug/mL 10.0-20.0 POCT-GLUCOSE [id number] 15:32:00 Test Item Value Reference Range Comments POC-GLUCOSE METER (BEAKER) 119 mg/dL 70-110 TESTED AT [address] (test mwbt=8194) [facility] [address] TROPONIN [id number] 13:14:00 Test Item Value Reference Range Comments TROPONIN I (BEAKER) (test jrqx=191) 81.57 ng/mL 0.00-0.03 Troponin I (TnI) levels [...] acute neurological disease, and persistent tachyarrhythmia.BASIC METABOLIC [id number] 12:49:00 Test Item Value Reference Range Comments SODIUM (BEAKER) (test 140 meq/L 136-145 rkde=323) POTASSIUM (BEAKER) (test 3.6 meq/L 3.5-5.1 Specimen slightly mbaq=575) hemolyzed CHLORIDE (BEAKER) (test 104 meq/L 98-107 bzsr=982) CO2 (BEAKER) (test 27 meq/L 22-29 zjft=898) BLOOD UREA NITROGEN 37 mg/dL 7-21 (BEAKER) (test xbxq=707) CREATININE (BEAKER) (test 2.35 mg/dL 0.57-1.25 Specimen slightly fiyq=002) hemolyzed GLUCOSE RANDOM (BEAKER) 192 mg/dL 70-105 (test wkgj=924) CALCIUM (BEAKER) (test 8.1 mg/dL 8.4-10.2 dibx=837) EGFR (BEAKER) (test 25 mL/min/1.73 sq m ESTIMATED GFR IS NOT ictt=3683) ACCURATE CREATININE CLEARANCE IN PREDICTING GLOMERULAR FILTRATION RATE. ESTIMATED GFR IS NOT APPLICABLE FOR DIALYSIS PATIENTS. [id number] 12:46:00 Test Item Value Reference Range Comments MAGNESIUM (BEAKER) (test 2.2 mg/dL 1.6-2.6 Specimen slightly hemolyzed sozo=754) [id number] 12:46:00 Test Item Value Reference Range Comments PHOSPHORUS (BEAKER) (test 4.6 mg/dL 2.3-4.7 Specimen slightly hemolyzed bnoo=556) POCT-GLUCOSE [id number] 12:16:00 Test Item Value Reference Range Comments POC-GLUCOSE METER (BEAKER) 210 mg/dL 70-110 TESTED AT [address] (test fycx=1998) [place] [id number] POCT-GLUCOSE [id number] 12:16:00 Test Item Value Reference Range Comments POC-GLUCOSE METER (BEAKER) 247 mg/dL 70-110 TESTED AT [address] (test jclj=0637) [place] [id number] POCT-GLUCOSE [id number] 12:16:00 Test Item Value Reference Range Comments POC-GLUCOSE METER (BEAKER) 174 mg/dL 70-110 TESTED AT [address] (test serm=5874) [place] [id number] BLOOD GAS, [id number] 12:14:00 Test Item Value Reference Range Comments PH ARTERIAL (BEAKER) (test vqga=306) 7.36 7.35-7.45 PCO2 ARTERIAL (BEAKER) (test rddt=737) 56 mmHg 35-45 PO2 ARTERIAL (BEAKER) (test fzpk=479) 65 mmHg 80-90 O2 SATURATION ARTERIAL (BEAKER) (test wocj=991) 90.4 % 96.0-97.0 HCO3 ARTERIAL (BEAKER) (test ybqb=578) 31 mmol/L 21-29 BASE EXCESS ARTERIAL (BEAKER) (test yqpc=768) 4.8 mmol/L -2.0-3.0 PATIENT TEMPERATURE (BEAKER) (test cddb=5234) 38.0 C FIO2 (BEAKER) (test ysxd=5938) 60.0 % [id number] 10:58:00 Test Item Value Reference Range Comments PARTIAL THROMBOPLASTIN TIME (BEAKER) (test 99.0 seconds 22.5-36.0 roli=965) RAD, CHEST, 1 VIEW, NON [id number] 08:30:00Reason for exam:->r/o pleural effusionShould this be [...] No pneumothorax is seen. Signed: Yoshi [facility] Verified Date/Time: 07/20/2017 08:30:52 Reading Location: [facility] ReadingRoom BLOOD GAS, [id number] 06 :37:00 Test Item Value Reference Range Comments PH ARTERIAL (BEAKER) (test agox=970) 7.38 7.35-7.45 PCO2 ARTERIAL (BEAKER) (test jbdd=149) 50 mmHg 35-45 PO2 ARTERIAL (BEAKER) (test cerh=293) 97 mmHg 80-90 O2 SATURATION ARTERIAL (BEAKER) (test btmz=687) 96.9 % 96.0-97.0 HCO3 ARTERIAL (BEAKER) (test tike=526) 28 mmol/L 21-29 BASE EXCESS ARTERIAL (BEAKER) (test szrm=971) 2.7 mmol/L -2.0-3.0 PATIENT TEMPERATURE (BEAKER) (test xwrg=0503) 37.8 C FIO2 (BEAKER) (test mjdw=8029) 40.0 % POCT-GLUCOSE [id number] 06:15:00 Test Item Value Reference Range Comments POC-GLUCOSE METER (BEAKER) 114 mg/dL 70-110 TESTED AT [address] (test vkww=8897) [facility] [address] POCT-GLUCOSE [id number] 06:15:00 Test Item Value Reference Range Comments POC-GLUCOSE METER (BEAKER) 140 mg/dL 70-110 TESTED AT [address] (test zhjn=1216) [facility] [address] POCT-GLUCOSE [id number] 05:23:00 Test Item Value Reference Range Comments POC-GLUCOSE METER (BEAKER) 77 mg/dL 70-110 TESTED AT [address] (test cmqa=5758) [facility] [address] CALCIUM, [id number] 04:34:00 Test Item Value Reference Range Comments CALCIUM IONIZED (BEAKER) (test lljf=550) 1.14 mmol/L 1.12-1.27 PH, BLOOD (BEAKER) (test uakk=8719) 7.34 BLOOD GAS, [id number] 04:32:00 Test Item Value Reference Range Comments PH ARTERIAL (BEAKER) (test plsh=371) 7.32 7.35-7.45 PCO2 ARTERIAL (BEAKER) (test mupj=411) 60 mmHg 35-45 PO2 ARTERIAL (BEAKER) (test rvbo=399) 92 mmHg 80-90 O2 SATURATION ARTERIAL (BEAKER) (test jhbw=958) 95.9 % 96.0-97.0 HCO3 ARTERIAL (BEAKER) (test ewpr=971) 30 mmol/L 21-29 BASE EXCESS ARTERIAL (BEAKER) (test egql=520) 3.2 mmol/L -2.0-3.0 PATIENT TEMPERATURE (BEAKER) (test bhrn=0873) 37.8 C FIO2 (BEAKER) (test htjh=4376) 40.0 % COMPREHENSIVE METABOLIC [id number] 04:24:00 Test Item Value Reference Range Comments TOTAL PROTEIN (BEAKER) 6.5 gm/dL 6.0-8.3 (test acty=306) ALBUMIN (BEAKER) (test 3.4 g/dL 3.5-5.0 dwaj=3240) ALKALINE PHOSPHATASE 47 U/L 40-150 (BEAKER) (test ihtq=747) BILIRUBIN TOTAL (BEAKER) 0.8 mg/dL 0.2-1.2 (test lbxa=157) SODIUM (BEAKER) (test 142 meq/L 136-145 ybgb=835) POTASSIUM (BEAKER) (test 3.7 meq/L 3.5-5.1 casl=346) CHLORIDE (BEAKER) (test 103 meq/L 98-107 bgbh=684) CO2 (BEAKER) (test 29 meq/L 22-29 rzug=670) BLOOD UREA NITROGEN 34 mg/dL 7-21 (BEAKER) (test csnp=837) CREATININE (BEAKER) (test 2.44 mg/dL 0.57-1.25 zuwd=229) GLUCOSE RANDOM (BEAKER) 128 mg/dL 70-105 (test etpv=360) CALCIUM (BEAKER) (test 8.7 mg/dL 8.4-10.2 moup=566) AST (SGOT) (BEAKER) (test 158 U/L 5-34 lhqs=097) ALT (SGPT) (BEAKER) (test 63 U/L 6-55 mfth=073) EGFR (BEAKER) (test 24 mL/min/1.73 sq m ESTIMATED GFR IS NOT wqeo=9694) ACCURATE CREATININE CLEARANCE IN PREDICTING GLOMERULAR FILTRATION RATE. ESTIMATED GFR IS NOT APPLICABLE FOR DIALYSIS PATIENTS. BASIC METABOLIC [id number] 04:24:00 Test Item Value Reference Range Comments SODIUM (BEAKER) (test 142 meq/L 136-145 khrz=104) POTASSIUM (BEAKER) (test 3.7 meq/L 3.5-5.1 euqv=280) CHLORIDE (BEAKER) (test 103 meq/L 98-107 ptow=943) CO2 (BEAKER) (test 29 meq/L 22-29 qidm=799) BLOOD UREA NITROGEN 34 mg/dL 7-21 (BEAKER) (test sudn=057) CREATININE (BEAKER) (test 2.44 mg/dL 0.57-1.25 bgmg=468) GLUCOSE RANDOM (BEAKER) 128 mg/dL 70-105 (test qmtx=265) CALCIUM (BEAKER) (test 8.7 mg/dL 8.4-10.2 uoil=159) EGFR (BEAKER) (test 24 mL/min/1.73 sq m ESTIMATED GFR IS NOT velm=6205) ACCURATE CREATININE CLEARANCE IN PREDICTING GLOMERULAR FILTRATION RATE. ESTIMATED GFR IS NOT APPLICABLE FOR DIALYSIS PATIENTS. [id number] 04:22:00 Test Item Value Reference Range Comments PHOSPHORUS (BEAKER) (test sagb=779) 5.2 mg/dL 2.3-4.7 [id number] 04:22:00 Test Item Value Reference Range Comments MAGNESIUM (BEAKER) (test rrlc=722) 2.4 mg/dL 1.6-2.6 HEPATIC FUNCTION [id number] 04:22:00 Test Item Value Reference Range Comments TOTAL PROTEIN (BEAKER) (test vlzz=863) 6.5 gm/dL 6.0-8.3 ALBUMIN (BEAKER) (test iuul=1778) 3.4 g/dL 3.5-5.0 BILIRUBIN TOTAL (BEAKER) (test plyh=842) 0.8 mg/dL 0.2-1.2 BILIRUBIN DIRECT (BEAKER) (test eepu=737) 0.4 mg/dL 0.1-0.5 ALKALINE PHOSPHATASE (BEAKER) (test xrly=039) 47 U/L 40-150 AST (SGOT) (BEAKER) (test dobz=054) 158 U/L 5-34 ALT (SGPT) (BEAKER) (test upkc=811) 63 U/L 6-55 [id number] 04:12:00 Test Item Value Reference Range Comments PARTIAL THROMBOPLASTIN TIME (BEAKER) (test 36.8 seconds 22.5-36.0 ldvr=352) Prior to initiating heparinPOCT-GLUCOSE [id number] 04:05:00 Test Item Value Reference Range Comments POC-GLUCOSE METER (BEAKER) 134 mg/dL 70-110 TESTED AT [facility] [address] [facility] (test hjiq=6487) [facility] [address] POCT-GLUCOSE [id number] 04:05:00 Test Item Value Reference Range Comments POC-GLUCOSE METER (BEAKER) 122 mg/dL 70-110 TESTED AT [facility] [address] [facility] (test ivek=2281) [facility] [address] POCT-GLUCOSE [id number] 04:05:00 Test Item Value Reference Range Comments POC-GLUCOSE METER (BEAKER) 201 mg/dL 70-110 TESTED AT [place] [id number] [facility] (test peos=9588) [place] [id number] CBC W/PLT COUNT & AUTO [id number] 04:02:00 Test Item Value Reference Range Comments WHITE BLOOD CELL COUNT (BEAKER) (test pnxm=676) 13.6 K/ L 3.5-10.5 RED BLOOD CELL COUNT (BEAKER) (test hddk=882) 3.18 M/ L 3.93-5.22 HEMOGLOBIN (BEAKER) (test nrxg=502) 9.7 GM/DL 11.2-15.7 HEMATOCRIT (BEAKER) (test suml=144) 31.0 % 34.1-44.9 MEAN CORPUSCULAR VOLUME (BEAKER) (test kcif=853) 97.5 fL 79.4-94.8 MEAN CORPUSCULAR HEMOGLOBIN (BEAKER) (test 30.5 pg 25.6-32.2 tzlm=571) MEAN CORPUSCULAR HEMOGLOBIN CONC (BEAKER) (test 31.3 GM/DL 32.2-35.5 aonf=583) RED CELL DISTRIBUTION WIDTH (BEAKER) (test 13.3 % 11.7-14.4 ypxa=230) PLATELET COUNT (BEAKER) (test vxsl=196) 167 K/CU MM 150-450 MEAN PLATELET VOLUME (BEAKER) (test wslw=858) 11.0 fL 9.4-12.3 NUCLEATED RED BLOOD CELLS (BEAKER) (test 0 /100 WBC 0-0 gdbq=923) NEUTROPHILS RELATIVE PERCENT (BEAKER) (test 85 % jyss=415) LYMPHOCYTES RELATIVE PERCENT (BEAKER) (test 7 % yvwk=012) MONOCYTES RELATIVE PERCENT (BEAKER) (test 7 % xnhl=584) EOSINOPHILS RELATIVE PERCENT (BEAKER) (test 0 % aflw=369) BASOPHILS RELATIVE PERCENT (BEAKER) (test 0 % meex=165) NEUTROPHILS ABSOLUTE COUNT (BEAKER) (test 11.61 K/ L 1.56-6.13 dccr=852) LYMPHOCYTES ABSOLUTE COUNT (BEAKER) (test 0.98 K/ L 1.18-3.74 esgb=386) MONOCYTES ABSOLUTE COUNT (BEAKER) (test 0.92 K/ L 0.24-0.36 tnqj=746) EOSINOPHILS ABSOLUTE COUNT (BEAKER) (test 0.00 K/ L 0.04-0.36 yusf=646) BASOPHILS ABSOLUTE COUNT (BEAKER) (test 0.02 K/ L 0.01-0.08 qyzn=871) IMMATURE GRANULOCYTES-RELATIVE PERCENT (BEAKER) 1 % 0-1 (test ymum=8376) [id number] 02:01:00 Test Item Value Reference Range Comments PARTIAL THROMBOPLASTIN TIME (BEAKER) (test 32.5 seconds 22.5-36.0 jubj=643) BLOOD GAS, [id number] 01:09:00 Test Item Value Reference Range Comments PH ARTERIAL (BEAKER) (test juon=271) 7.35 7.35-7.45 PCO2 ARTERIAL (BEAKER) (test qymi=166) 50 mmHg 35-45 PO2 ARTERIAL (BEAKER) (test hnpk=774) 86 mmHg 80-90 O2 SATURATION ARTERIAL (BEAKER) (test ezvr=712) 95.3 % 96.0-97.0 HCO3 ARTERIAL (BEAKER) (test bxks=429) 27 mmol/L 21-29 BASE EXCESS ARTERIAL (BEAKER) (test xhsw=899) 1.0 mmol/L -2.0-3.0 PATIENT TEMPERATURE (BEAKER) (test zuef=5618) 38.2 C FIO2 (BEAKER) (test umuv=1853) 40.0 % POCT-GLUCOSE [id number] 01:04:00 Test Item Value Reference Range Comments POC-GLUCOSE METER (BEAKER) 199 mg/dL 70-110 TESTED AT [facility] [address] [facility] (test nulk=3766) [facility] [address] [id number] 00:14:00 Test Item Value Reference Range Comments MAGNESIUM (BEAKER) (test 2.3 mg/dL 1.6-2.6 Specimen slightly hemolyzed gbzk=477) [id number] 00:14:00 Test Item Value Reference Range Comments POTASSIUM (BEAKER) (test 3.8 meq/L 3.5-5.1 Specimen slightly hemolyzed bocy=441) CALCIUM, [id number] 00:11:00 Test Item Value Reference Range Comments CALCIUM IONIZED (BEAKER) (test hftl=114) 1.06 mmol/L 1.12-1.27 PH, BLOOD (BEAKER) (test gfmr=7741) 7.35 BLOOD GAS, [id number] 00:11:00 Test Item Value Reference Range Comments PH ARTERIAL (BEAKER) (test pdxq=529) 7.33 7.35-7.45 PCO2 ARTERIAL (BEAKER) (test mtjv=006) 53 mmHg 35-45 PO2 ARTERIAL (BEAKER) (test lggi=693) 58 mmHg 80-90 O2 SATURATION ARTERIAL (BEAKER) (test zpfw=194) 86.1 % 96.0-97.0 HCO3 ARTERIAL (BEAKER) (test fvwp=197) 27 mmol/L 21-29 BASE EXCESS ARTERIAL (BEAKER) (test nhox=225) 0.9 mmol/L -2.0-3.0 PATIENT TEMPERATURE (BEAKER) (test vwcg=7534) 38.0 C FIO2 (BEAKER) (test vhwy=5390) 40.0 % Post extubation ABGPOCT-GLUCOSE [id number] 23:58:00 Test Item Value Reference Range Comments POC-GLUCOSE METER (BEAKER) 202 mg/dL 70-110 TESTED AT [address] (test qwda=2869) [place] [id number] POCT-GLUCOSE [id number] 23:58:00 Test Item Value Reference Range Comments POC-GLUCOSE METER (BEAKER) 86 mg/dL 70-110 TESTED AT [address] (test yuiy=4360) [place] [id number] BASIC METABOLIC [id number] 22:18:00 Test Item Value Reference Range Comments SODIUM (BEAKER) (test 141 meq/L 136-145 skzq=892) POTASSIUM (BEAKER) (test 3.6 meq/L 3.5-5.1 Specimen slightly bjrt=800) hemolyzed CHLORIDE (BEAKER) (test 105 meq/L 98-107 ugym=231) CO2 (BEAKER) (test 26 meq/L 22-29 cjhk=854) BLOOD UREA NITROGEN 31 mg/dL 7-21 (BEAKER) (test qmas=870) CREATININE (BEAKER) (test 2.09 mg/dL 0.57-1.25 Specimen slightly lsup=538) hemolyzed GLUCOSE RANDOM (BEAKER) 81 mg/dL 70-105 (test uzqf=601) CALCIUM (BEAKER) (test 8.3 mg/dL 8.4-10.2 lcik=168) EGFR (BEAKER) (test 28 mL/min/1.73 sq m ESTIMATED GFR IS NOT kzqt=1793) ACCURATE CREATININE CLEARANCE IN PREDICTING GLOMERULAR FILTRATION RATE. ESTIMATED GFR IS NOT APPLICABLE FOR DIALYSIS PATIENTS. [id number] 22:17:00 Test Item Value Reference Range Comments PHOSPHORUS (BEAKER) (test 5.1 mg/dL 2.3-4.7 Specimen slightly hemolyzed ileo=527) POCT-GLUCOSE [id number] 20:57:00 Test Item Value Reference Range Comments POC-GLUCOSE METER (BEAKER) 90 mg/dL 70-110 TESTED AT [facility] [address] [facility] (test qhpy=2046) [facility] [address] BLOOD GAS, [id number] 20:52:00 Test Item Value Reference Range Comments PH ARTERIAL (BEAKER) (test mnsk=903) 7.35 7.35-7.45 PCO2 ARTERIAL (BEAKER) (test rssn=855) 49 mmHg 35-45 PO2 ARTERIAL (BEAKER) (test wjzf=732) 100 mmHg 80-90 O2 SATURATION ARTERIAL (BEAKER) (test wreh=403) 97.0 % 96.0-97.0 HCO3 ARTERIAL (BEAKER) (test cofb=836) 26 mmol/L 21-29 BASE EXCESS ARTERIAL (BEAKER) (test qzud=292) 0.3 mmol/L -2.0-3.0 PATIENT TEMPERATURE (BEAKER) (test vvcm=1424) 37.7 C FIO2 (BEAKER) (test nmxb=0577) 40.0 % [id number] 18:57:00 Test Item Value Reference Range Comments PARTIAL THROMBOPLASTIN TIME (BEAKER) (test 70.7 seconds 22.5-36.0 voub=112) BLOOD GAS, [id number] 16:52:00 Test Item Value Reference Range Comments PH ARTERIAL (BEAKER) (test phjg=026) 7.37 7.35-7.45 PCO2 ARTERIAL (BEAKER) (test xtjd=317) 47 mmHg 35-45 PO2 ARTERIAL (BEAKER) (test gwsp=042) 117 mmHg 80-90 O2 SATURATION ARTERIAL (BEAKER) (test fkrc=831) 98.0 % 96.0-97.0 HCO3 ARTERIAL (BEAKER) (test hyfr=813) 26 mmol/L 21-29 BASE EXCESS ARTERIAL (BEAKER) (test niyp=177) 0.5 mmol/L -2.0-3.0 PATIENT TEMPERATURE (BEAKER) (test wpmw=6196) 37.7 C FIO2 (BEAKER) (test zulg=4672) 60.0 % GLUCOSE-STAT [id number] 16:52:00 Test Item Value Reference Range Comments GLUCOSE RANDOM (BEAKER) (test iups=408) 149 mg/dL 70-110 [id number] 16:22:00 Test Item Value Reference Range Comments PARTIAL THROMBOPLASTIN TIME (BEAKER) (test 197.7 seconds 22.5-36.0 joea=701) PROTHROMBIN [id number] 16:15:00 Test Item Value Reference Range Comments PROTIME (BEAKER) (test tkrx=685) 16.4 seconds 11.7-14.7 INR (BEAKER) (test smad=190) 1.3 <=5.9 RECOMMENDED COUMADIN/WARFARIN INR THERAPY RANGESSTANDARD DOSE: 2.0 - 3.0 Includes: PROPHYLAXIS forvenous thrombosis, systemic embolization; TREATMENT for venous thrombosis and/or pulmonary embolus.HIGH RISK: Target INR is 2.5-3.5 for patients with mechanical heart valves.[id number] 16:15:00 Test Item Value Reference Range Comments FIBRINOGEN LEVEL (BEAKER) (test flfg=407) 303 mg/dl 225-434 [id number] 16:15:00 Test Item Value Reference Range Comments MAGNESIUM (BEAKER) (test 3.0 mg/dL 1.6-2.6 Specimen moderately hemolyzed qslf=156) [id number] 16:15:00 Test Item Value Reference Range Comments PHOSPHORUS (BEAKER) (test 6.6 mg/dL 2.3-4.7 Specimen moderately hemolyzed gwqb=736) BASIC METABOLIC [id number] 16:15:00 Test Item Value Reference Range Comments SODIUM (BEAKER) (test 144 meq/L 136-145 skol=164) POTASSIUM (BEAKER) (test 4.1 meq/L 3.5-5.1 Specimen moderately jytg=237) hemolyzed CHLORIDE (BEAKER) (test 106 meq/L 98-107 hpge=467) CO2 (BEAKER) (test 27 meq/L 22-29 tswv=040) BLOOD UREA NITROGEN 30 mg/dL 7-21 (BEAKER) (test jujc=928) CREATININE (BEAKER) (test 1.99 mg/dL 0.57-1.25 Specimen moderately saec=423) hemolyzed GLUCOSE RANDOM (BEAKER) 165 mg/dL 70-105 (test lspx=072) CALCIUM (BEAKER) (test 8.6 mg/dL 8.4-10.2 qgin=755) EGFR (BEAKER) (test 30 mL/min/1.73 sq m ESTIMATED GFR IS NOT zpeg=3638) ACCURATE CREATININE CLEARANCE IN PREDICTING GLOMERULAR FILTRATION RATE. ESTIMATED GFR IS NOT APPLICABLE FOR DIALYSIS PATIENTS. CBC (HEMOGRAM ONLY)2017-07-19 16:13:00 Test Item Value Reference Range Comments WHITE BLOOD CELL COUNT (BEAKER) (test ivzo=283) 14.5 K/ L 3.5-10.5 RED BLOOD CELL COUNT (BEAKER) (test pcxg=664) 3.55 M/ L 3.93-5.22 HEMOGLOBIN (BEAKER) (test cwqe=534) 10.7 GM/DL 11.2-15.7 HEMATOCRIT (BEAKER) (test qodp=597) 34.9 % 34.1-44.9 MEAN CORPUSCULAR VOLUME (BEAKER) (test pkxw=478) 98.3 fL 79.4-94.8 MEAN CORPUSCULAR HEMOGLOBIN (BEAKER) (test 30.1 pg 25.6-32.2 aref=238) MEAN CORPUSCULAR HEMOGLOBIN CONC (BEAKER) (test 30.7 GM/DL 32.2-35.5 yebl=789) RED CELL DISTRIBUTION WIDTH (BEAKER) (test 13.3 % 11.7-14.4 mxie=273) PLATELET COUNT (BEAKER) (test lqgv=561) 235 K/CU MM 150-450 MEAN PLATELET VOLUME (BEAKER) (test nuwm=512) 11.0 fL 9.4-12.3 NUCLEATED RED BLOOD CELLS (BEAKER) (test 0 /100 WBC 0-0 jfmk=372) LACTIC ACID, ARTERIAL, WHOLE [id number] 16:12:00 Test Item Value Reference Range Comments LACTATE BLOOD ARTERIAL (2) 2.0 mmol/L 0.5-2.2 Specimen slightly hemolyzed (BEAKER) (test prkx=1641) Effective 08/06/2015: Units/Reference Range ChangeNew: 0.5-2.2 mmol/L Previous: 5 -20 mg/dLCALCIUM, [id number] 15:54:00 Test Item Value Reference Range Comments CALCIUM IONIZED (BEAKER) (test cllx=027) 1.14 mmol/L 1.12-1.27 PH, BLOOD (BEAKER) (test rkci=5757) 7.24 SODIUM NA-STAT [id number] 15:54:00 Test Item Value Reference Range Comments SODIUM (BEAKER) (test ztxi=815) 143 meq/L 135-148 POTASSIUM-STAT [id number] 15:54:00 Test Item Value Reference Range Comments POTASSIUM (BEAKER) (test oqmi=969) 3.9 meq/L 3.6-5.5 BLOOD GAS, [id number] 15:54:00 Test Item Value Reference Range Comments PH ARTERIAL (BEAKER) (test zqje=392) 7.26 7.35-7.45 PCO2 ARTERIAL (BEAKER) (test uecb=667) 69 mmHg 35-45 PO2 ARTERIAL (BEAKER) (test spyz=002) 74 mmHg 80-90 O2 SATURATION ARTERIAL (BEAKER) (test ujdu=119) 93.4 % 96.0-97.0 HCO3 ARTERIAL (BEAKER) (test tupt=930) 31 mmol/L 21-29 BASE EXCESS ARTERIAL (BEAKER) (test yomu=734) 2.0 mmol/L -2.0-3.0 PATIENT TEMPERATURE (BEAKER) (test ylak=2706) 35.6 C FIO2 (BEAKER) (test bcgs=9976) 50.0 % GLUCOSE-STAT [id number] 15:54:00 Test Item Value Reference Range Comments GLUCOSE RANDOM (BEAKER) (test nmrw=158) 169 mg/dL 70-110 HGB/HCT (H&H) - STAT [id number] 15:54:00 Test Item Value Reference Range Comments HEMOGLOBIN (STEVAN) (test giiy=359) 11.7 g/dL 12.0-15.0 HEMATOCRIT (STEVAN) (test hxxp=847) 34.0 % 36.0-45.0 RAD, CHEST, 1 VIEW, NON [id number] 15:49:00Reason for exam:->sp PCI/ intubatedFINAL REPORT TECHNIQUE: [...] [place] Verified Date/Time: 07/19/2017 15:49:37 Reading Location: [facility] RadiologyReading Room [id number] 14:13:00 Test Item Value Reference Range Comments ACTIVATED CLOTTING TIME 131 sec TESTED AT [facility] [address] (STEVAN) (test ejhv=576) [facility] [address] TROPONIN [id number] 12:32:00 Test Item Value Reference Range Comments TROPONIN I (STEVAN) (test cdsw=887) 119.79 ng/mL 0.00-0.03 Troponin I (TnI) levels [...] and persistent tachyarrhythmia.CREATINE KINASE (CK), TOTAL AND [id number] 12:26:00 Test Item Value Reference Range Comments CREATINE KINASE TOTAL (DAMASOAKER) (test dpkf=043) 2405 U/L 29-200 CREATINE KINASE-MB (BEAKER) (test whnm=927) 65.6 ng/mL 0.0-6.6 CREATINE KINASE-MB INDEX (BEAKER) (test evpb=421) 2.7 % CK-MB Reference Range:<6.7 Normal6.7-10.0 Borderline>10.0 AbnormalPOCT-GLUCOSE [id number] 12:20:00 Test Item Value Reference Range Comments POC-GLUCOSE METER (BEAKER) 183 mg/dL 70-110 TESTED AT [address] (test qzkr=0050) [facility] [address] [id number] 12:03:00 Test Item Value Reference Range Comments MAGNESIUM (BEAKER) (test mfww=716) 2.8 mg/dL 1.6-2.6 [id number] 12:03:00 Test Item Value Reference Range Comments PHOSPHORUS (BEAKER) (test tvqg=893) 5.3 mg/dL 2.3-4.7 BASIC METABOLIC [id number] 12:03:00 Test Item Value Reference Range Comments SODIUM (BEAKER) (test 143 meq/L 136-145 xfgh=524) POTASSIUM (BEAKER) (test 3.8 meq/L 3.5-5.1 vevd=697) CHLORIDE (BEAKER) (test 106 meq/L 98-107 rlyn=103) CO2 (BEAKER) (test 27 meq/L 22-29 sddm=117) BLOOD UREA NITROGEN 29 mg/dL 7-21 (BEAKER) (test krrp=674) CREATININE (BEAKER) (test 1.92 mg/dL 0.57-1.25 tgzr=396) GLUCOSE RANDOM (BEAKER) 188 mg/dL 70-105 (test ears=118) CALCIUM (BEAKER) (test 8.7 mg/dL 8.4-10.2 pcyh=300) EGFR (BEAKER) (test 31 mL/min/1.73 sq m ESTIMATED GFR IS NOT mgdy=1493) ACCURATE CREATININE CLEARANCE IN PREDICTING GLOMERULAR FILTRATION RATE. ESTIMATED GFR IS NOT APPLICABLE FOR DIALYSIS PATIENTS. POCT-GLUCOSE [id number] 11:19:00 Test Item Value Reference Range Comments POC-GLUCOSE METER (BEAKER) 190 mg/dL 70-110 TESTED AT [address] (test liue=2337) [facility] [address] POCT-GLUCOSE [id number] 10:12:00 Test Item Value Reference Range Comments POC-GLUCOSE METER (BEAKER) 197 mg/dL 70-110 TESTED AT [address] (test lska=2313) [facility] [address] POCT-GLUCOSE [id number] 09:21:00 Test Item Value Reference Range Comments POC-GLUCOSE METER (BEAKER) 221 mg/dL 70-110 TESTED AT [address] (test mbvh=0305) [place] [id number] LACTIC ACID, ARTERIAL, WHOLE [id number] 09:19:00 Test Item Value Reference Range Comments LACTATE BLOOD ARTERIAL (2) (BEAKER) (test 2.4 mmol/L 0.5-2.2 uqbh=9332) Effective 08/06/2015: Units/Reference Range ChangeNew: 0.5-2.2 mmol/L Previous: 5 -20 mg/dLPROTHROMBIN [id number] 08:44:00 Test Item Value Reference Range Comments PROTIME (BEAKER) (test xvlq=058) 14.4 seconds 11.7-14.7 INR (BEAKER) (test qsuj=418) 1.1 <=5.9 RECOMMENDED COUMADIN/WARFARIN INR THERAPY RANGESSTANDARD DOSE: 2.0 - 3.0 Includes: PROPHYLAXIS forvenous thrombosis, systemic embolization; TREATMENT for venous thrombosis and/or pulmonary embolus.HIGH RISK: Target INR is 2.5-3.5 for patients with mechanical heart valves.[id number] 08:44:00 Test Item Value Reference Range Comments FIBRINOGEN LEVEL (BEAKER) (test acdd=946) 367 mg/dl 225-434 [id number] 08:44:00 Test Item Value Reference Range Comments PARTIAL THROMBOPLASTIN TIME (BEAKER) (test 30.0 seconds 22.5-36.0 iddi=539) POCT-GLUCOSE [id number] 07:52:00 Test Item Value Reference Range Comments POC-GLUCOSE METER (BEAKER) 215 mg/dL 70-110 TESTED AT [address] (test ydtb=9298) [facility] [address] CT, CHEST, WITHOUT [id number] 07:50:00KEEP PATIENT ON CT TABLE. CALL RADIOLOGIST [...] Verified Date /Time: 07/19/2017 07:50:43 Reading Location: [facility] Diagnostic Imaging Reading Room - [place] [address] Electronically signed by: LYNNETTE CASTRO MD on 07:50 AMPOCT-GLUCOSE [id number] 07:37:00 Test Item Value Reference Range Comments POC-GLUCOSE METER (BEAKER) 225 mg/dL 70-110 TESTED AT [facility] [address] (test udzm=2836) [facility] [address] RAD, CHEST, 1 VIEW, NON [id number] 04:04:00Reason for exam:->v tach/ iabpShould this be [...] MDReport Verified Date/Time: 07/19/2017 04:04:19 Reading Location: [address] Ortho Consult Reading Room [id number] 03:59:00 Test Item Value Reference Range Comments PHOSPHORUS (BEAKER) (test uhne=094) 4.4 mg/dL 2.3-4.7 [id number] 03:59:00 Test Item Value Reference Range Comments MAGNESIUM (BEAKER) (test zpju=618) 2.5 mg/dL 1.6-2.6 BASIC METABOLIC [id number] 03:59:00 Test Item Value Reference Range Comments SODIUM (BEAKER) (test 145 meq/L 136-145 pkfe=196) POTASSIUM (BEAKER) (test 3.6 meq/L 3.5-5.1 clmh=974) CHLORIDE (BEAKER) (test 106 meq/L 98-107 glxq=188) CO2 (BEAKER) (test 25 meq/L 22-29 anym=714) BLOOD UREA NITROGEN 28 mg/dL 7-21 (BEAKER) (test qzvx=986) CREATININE (BEAKER) (test 1.93 mg/dL 0.57-1.25 ycaj=000) GLUCOSE RANDOM (BEAKER) 216 mg/dL 70-105 (test xytg=099) CALCIUM (BEAKER) (test 9.0 mg/dL 8.4-10.2 tooj=113) EGFR (BEAKER) (test 31 mL/min/1.73 sq m ESTIMATED GFR IS NOT tgnt=5418) ACCURATE CREATININE CLEARANCE IN PREDICTING GLOMERULAR FILTRATION RATE. ESTIMATED GFR IS NOT APPLICABLE FOR DIALYSIS PATIENTS. B-TYPE NATRIURETIC FACTOR (BNP)2017-07-19 03:10:00 Test Item Value Reference Range Comments B-TYPE NATRIURETIC PEPTIDE (BEAKER) (test 2662 pg/mL 0-100 iomt=792) HEPATIC FUNCTION [id number] 03:04:00 Test Item Value Reference Range Comments TOTAL PROTEIN (BEAKER) (test vfqh=471) 6.6 gm/dL 6.0-8.3 ALBUMIN (BEAKER) (test dxaa=7718) 3.5 g/dL 3.5-5.0 BILIRUBIN TOTAL (BEAKER) (test hexa=218) 0.4 mg/dL 0.2-1.2 BILIRUBIN DIRECT (BEAKER) (test tknt=826) 0.2 mg/dL 0.1-0.5 ALKALINE PHOSPHATASE (BEAKER) (test qcfu=342) 57 U/L 40-150 AST (SGOT) (BEAKER) (test hrdl=411) 359 U/L 5-34 ALT (SGPT) (BEAKER) (test iyhy=386) 99 U/L 6-55 CREATINE KINASE (CK)2017-07-19 03:04:00 Test Item Value Reference Range Comments CREATINE KINASE TOTAL (BEAKER) (test wxqh=008) 2888 U/L 29-200 CBC W/PLT COUNT & AUTO [id number] 02:56:00 Test Item Value Reference Range Comments WHITE BLOOD CELL COUNT (BEAKER) (test hnna=693) 19.0 K/ L 3.5-10.5 RED BLOOD CELL COUNT (BEAKER) (test titd=738) 3.69 M/ L 3.93-5.22 HEMOGLOBIN (BEAKER) (test eogk=911) 11.2 GM/DL 11.2-15.7 HEMATOCRIT (BEAKER) (test ausl=707) 35.3 % 34.1-44.9 MEAN CORPUSCULAR VOLUME (BEAKER) (test mimc=681) 95.7 fL 79.4-94.8 MEAN CORPUSCULAR HEMOGLOBIN (BEAKER) (test 30.4 pg 25.6-32.2 lkpx=362) MEAN CORPUSCULAR HEMOGLOBIN CONC (BEAKER) (test 31.7 GM/DL 32.2-35.5 jabg=708) RED CELL DISTRIBUTION WIDTH (BEAKER) (test 13.1 % 11.7-14.4 xsjm=416) PLATELET COUNT (BEAKER) (test deil=292) 253 K/CU MM 150-450 MEAN PLATELET VOLUME (BEAKER) (test xgsf=246) 10.0 fL 9.4-12.3 NUCLEATED RED BLOOD CELLS (BEAKER) (test 0 /100 WBC 0-0 fqqq=734) NEUTROPHILS RELATIVE PERCENT (BEAKER) (test 86 % apty=046) LYMPHOCYTES RELATIVE PERCENT (BEAKER) (test 6 % icua=565) MONOCYTES RELATIVE PERCENT (BEAKER) (test 7 % siwn=812) EOSINOPHILS RELATIVE PERCENT (BEAKER) (test 0 % elay=353) BASOPHILS RELATIVE PERCENT (BEAKER) (test 0 % astz=874) NEUTROPHILS ABSOLUTE COUNT (BEAKER) (test 16.34 K/ L 1.56-6.13 jihw=758) LYMPHOCYTES ABSOLUTE COUNT (BEAKER) (test 1.15 K/ L 1.18-3.74 atgr=354) MONOCYTES ABSOLUTE COUNT (BEAKER) (test 1.39 K/ L 0.24-0.36 fwgg=090) EOSINOPHILS ABSOLUTE COUNT (BEAKER) (test 0.00 K/ L 0.04-0.36 falg=906) BASOPHILS ABSOLUTE COUNT (BEAKER) (test 0.02 K/ L 0.01-0.08 npxp=120) IMMATURE GRANULOCYTES-RELATIVE PERCENT (BEAKER) 0 % 0-1 (test uvhn=3638) CALCIUM, [id number] 02:49:00 Test Item Value Reference Range Comments CALCIUM IONIZED (BEAKER) (test nztc=959) 1.14 mmol/L 1.12-1.27 PH, BLOOD (BEAKER) (test rrmu=4672) 7.36 CBC (HEMOGRAM ONLY)2017-07-19 02:48:00 Test Item Value Reference Range Comments WHITE BLOOD CELL COUNT (BEAKER) (test rjkl=431) 19.0 K/ L 3.5-10.5 RED BLOOD CELL COUNT (BEAKER) (test ueon=796) 3.69 M/ L 3.93-5.22 HEMOGLOBIN (BEAKER) (test cgou=061) 11.2 GM/DL 11.2-15.7 HEMATOCRIT (BEAKER) (test kzbg=751) 35.3 % 34.1-44.9 MEAN CORPUSCULAR VOLUME (BEAKER) (test fsic=809) 95.7 fL 79.4-94.8 MEAN CORPUSCULAR HEMOGLOBIN (BEAKER) (test 30.4 pg 25.6-32.2 coww=542) MEAN CORPUSCULAR HEMOGLOBIN CONC (BEAKER) (test 31.7 GM/DL 32.2-35.5 dagi=757) RED CELL DISTRIBUTION WIDTH (BEAKER) (test 13.1 % 11.7-14.4 xrru=028) PLATELET COUNT (BEAKER) (test xieq=923) 253 K/CU MM 150-450 MEAN PLATELET VOLUME (BEAKER) (test rooz=790) 10.0 fL 9.4-12.3 NUCLEATED RED BLOOD CELLS (BEAKER) (test 0 /100 WBC 0-0 wuqx=428) BLOOD GAS, [id number] 02:48:00 Test Item Value Reference Range Comments PH ARTERIAL (BEAKER) (test upor=359) 7.35 7.35-7.45 PCO2 ARTERIAL (BEAKER) (test hyzd=962) 55 mmHg 35-45 PO2 ARTERIAL (BEAKER) (test fked=678) 73 mmHg 80-90 O2 SATURATION ARTERIAL (BEAKER) (test rkxx=390) 93.3 % 96.0-97.0 HCO3 ARTERIAL (BEAKER) (test ldaw=646) 30 mmol/L 21-29 BASE EXCESS ARTERIAL (BEAKER) (test lujz=398) 3.1 mmol/L -2.0-3.0 PATIENT TEMPERATURE (BEAKER) (test rzij=8024) 37.5 C FIO2 (BEAKER) (test axfk=8897) 40.0 % POCT-GLUCOSE [id number] 02:21:00 Test Item Value Reference Range Comments POC-GLUCOSE METER (BEAKER) 184 mg/dL 70-110 TESTED AT [facility] [address] [facility] (test cafz=0204) [facility] [address] POCT-GLUCOSE [id number] 01:15:00 Test Item Value Reference Range Comments POC-GLUCOSE METER (BEAKER) 173 mg/dL 70-110 TESTED AT [facility] [address] [facility] (test vuqj=8214) [facility] [address] [id number] 00:55:00 Test Item Value Reference Range Comments PHOSPHORUS (BEAKER) (test nsss=312) 3.3 mg/dL 2.3-4.7 [id number] 00:55:00 Test Item Value Reference Range Comments MAGNESIUM (BEAKER) (test ugws=864) 1.8 mg/dL 1.6-2.6 BASIC METABOLIC [id number] 00:55:00 Test Item Value Reference Range Comments SODIUM (BEAKER) (test 143 meq/L 136-145 ycvb=892) POTASSIUM (BEAKER) (test 3.9 meq/L 3.5-5.1 aacz=349) CHLORIDE (BEAKER) (test 106 meq/L 98-107 imnh=452) CO2 (BEAKER) (test 27 meq/L 22-29 majo=940) BLOOD UREA NITROGEN 27 mg/dL 7-21 (BEAKER) (test diml=349) CREATININE (BEAKER) (test 1.90 mg/dL 0.57-1.25 darc=229) GLUCOSE RANDOM (BEAKER) 181 mg/dL 70-105 (test dsjr=996) CALCIUM (BEAKER) (test 8.9 mg/dL 8.4-10.2 uzsx=797) EGFR (BEAKER) (test 32 mL/min/1.73 sq m ESTIMATED GFR IS NOT khlt=5411) ACCURATE CREATININE CLEARANCE IN PREDICTING GLOMERULAR FILTRATION RATE. ESTIMATED GFR IS NOT APPLICABLE FOR DIALYSIS PATIENTS. POCT-GLUCOSE [id number] 00:11:00 Test Item Value Reference Range Comments POC-GLUCOSE METER (BEAKER) 177 mg/dL 70-110 TESTED AT [facility] [address] [facility] (test bjsq=8710) [facility] [address] POCT-GLUCOSE [id number] 23:25:00 Test Item Value Reference Range Comments POC-GLUCOSE METER (BEAKER) 206 mg/dL 70-110 TESTED AT [place] [id number] [facility] (test zdnh=0574) [facility] [address] POCT-GLUCOSE [id number] 22:19:00 Test Item Value Reference Range Comments POC-GLUCOSE METER (BEAKER) 243 mg/dL 70-110 TESTED AT [address] (test vvap=4053) [facility] [address] POCT-GLUCOSE [id number] 21:37:00 Test Item Value Reference Range Comments POC-GLUCOSE METER (BEAKER) 235 mg/dL 70-110 TESTED AT [address] (test lyza=3218) [facility] [address] POCT-GLUCOSE [id number] 20:04:00 Test Item Value Reference Range Comments POC-GLUCOSE METER (BEAKER) 216 mg/dL 70-110 TESTED AT [address] (test tusd=1814) [facility] [address] POCT-GLUCOSE [id number] 18:40:00 Test Item Value Reference Range Comments POC-GLUCOSE METER (BEAKER) 271 mg/dL 70-110 TESTED AT [address] (test baag=2853) [facility] [address] [id number] 18:32:00 Test Item Value Reference Range Comments MAGNESIUM (BEAKER) (test 1.9 mg/dL 1.6-2.6 Specimen slightly hemolyzed gwry=406) [id number] 18:32:00 Test Item Value Reference Range Comments PHOSPHORUS (BEAKER) (test 3.1 mg/dL 2.3-4.7 Specimen slightly hemolyzed tbrx=613) BASIC METABOLIC [id number] 18:32:00 Test Item Value Reference Range Comments SODIUM (BEAKER) (test 142 meq/L 136-145 csvm=120) POTASSIUM (BEAKER) (test 3.9 meq/L 3.5-5.1 Specimen slightly gudu=562) hemolyzed CHLORIDE (BEAKER) (test 107 meq/L 98-107 bgev=770) CO2 (BEAKER) (test 24 meq/L 22-29 gwmj=205) BLOOD UREA NITROGEN 22 mg/dL 7-21 (BEAKER) (test bndq=006) CREATININE (BEAKER) (test 1.55 mg/dL 0.57-1.25 Specimen slightly ohfu=268) hemolyzed GLUCOSE RANDOM (BEAKER) 242 mg/dL 70-105 (test ippr=966) CALCIUM (BEAKER) (test 8.8 mg/dL 8.4-10.2 uanf=566) EGFR (BEAKER) (test 40 mL/min/1.73 sq m ESTIMATED GFR IS NOT lpwv=3304) ACCURATE CREATININE CLEARANCE IN PREDICTING GLOMERULAR FILTRATION RATE. ESTIMATED GFR IS NOT APPLICABLE FOR DIALYSIS PATIENTS. BLOOD GAS, [id number] 18:24:00 Test Item Value Reference Range Comments PH ARTERIAL (BEAKER) (test uigo=457) 7.34 7.35-7.45 PCO2 ARTERIAL (BEAKER) (test cahx=704) 51 mmHg 35-45 PO2 ARTERIAL (BEAKER) (test ikkl=095) 57 mmHg 80-90 O2 SATURATION ARTERIAL (BEAKER) (test gerg=965) 87.5 % 96.0-97.0 HCO3 ARTERIAL (BEAKER) (test qjxs=533) 27 mmol/L 21-29 BASE EXCESS ARTERIAL (BEAKER) (test jtuu=468) 1.0 mmol/L -2.0-3.0 PATIENT TEMPERATURE (BEAKER) (test sxnx=6413) 37.2 C FIO2 (BEAKER) (test argf=3488) 40.0 % POCT-GLUCOSE [id number] 17:14:00 Test Item Value Reference Range Comments POC-GLUCOSE METER (BEAKER) 299 mg/dL 70-110 TESTED AT [place] [address] [address] (test hsbo=0582) [facility] [address] LACTIC ACID, ARTERIAL, WHOLE [id number] 16:37:00 Test Item Value Reference Range Comments LACTATE BLOOD ARTERIAL (2) 2.9 mmol/L 0.5-2.2 Specimen slightly hemolyzed (BEAKER) (test nfuy=5007) Effective 08/06/2015: Units/Reference Range ChangeNew: 0.5-2.2 mmol/L Previous: 5 -20 mg/[id number] 15:45:00 Test Item Value Reference Range Comments GLUCOSE RANDOM (BEAKER) (test norg=567) 439 mg/dL 70-105 If last glucose was less than 500, may do bedside glucose instead of serum glucose.POCT-GLUCOSE [id number] 15:21:00 Test Item Value Reference Range Comments POC-GLUCOSE METER (BEAKER) 374 mg/dL 70-110 Notified PAULA BERGER/TESTED AT [facility] (test uvhe=5371) [address] [facility] [address] [id number] 15:14:00 Test Item Value Reference Range Comments POTASSIUM (BEAKER) (test hsev=910) 4.0 meq/L 3.5-5.1 If last glucose was less than 500, may do bedside glucose instead of serum glucose.URINALYSIS W/ [id number] 15:03:00 Test Item Value Reference Range Comments COLOR (BEAKER) (test axjl=445) Yellow CLARITY (BEAKER) (test rlhg=233) Clear SPECIFIC GRAVITY UA (BEAKER) (test hldp=483) 1.050 1.001-1.035 PH UA (BEAKER) (test ndov=477) 5.5 5.0-8.0 PROTEIN UA (BEAKER) (test yefc=334) 50 mg/dL Negative GLUCOSE UA (BEAKER) (test luwe=687) >1000 mg/dL Negative KETONES UA (BEAKER) (test xgdp=797) Negative Negative BILIRUBIN UA (BEAKER) (test jzpf=155) Negative Negative BLOOD UA (BEAKER) (test gknv=346) Moderate Negative NITRITE UA (BEAKER) (test hmxb=900) Negative Negative LEUKOCYTE ESTERASE UA (BEAKER) (test wkcp=174) Negative Negative UROBILINOGEN UA (BEAKER) (test lolm=236) 0.2 mg/dL 0.2-1.0 RBC UA (BEAKER) (test firl=388) 16 /HPF WBC UA (BEAKER) (test qcxm=749) 11 /HPF BACTERIA (BEAKER) (test fxbk=400) Rare MUCUS (BEAKER) (test irzb=5163) Rare SQUAMOUS EPITHELIAL (BEAKER) (test axlg=175) 1 /HPF SOURCE(BEAKER) (test arqs=0472) U/S, RENAL, [id number] 14:36:00Reason for exam:->acute renal failure , hydronephrosisShould [...] MDReport Verified Date/Time: 07/18/2017 14:36:40 Reading Location: [place] [id number] Ultrasound Reading Room Electronically signed by: VIRGINIA DIAZ M.D. on 02:36 PMT4, [id number] 14:31:00 Test Item Value Reference Range Comments FREE T4 (BEAKER) (test rwaf=826) 1.13 ng/dL 0.70-1.48 BLOOD GAS, [id number] 14:01:00 Test Item Value Reference Range Comments PH ARTERIAL (BEAKER) (test cvdd=361) 7.42 7.35-7.45 PCO2 ARTERIAL (BEAKER) (test huos=941) 42 mmHg 35-45 PO2 ARTERIAL (BEAKER) (test ukvm=960) 66 mmHg 80-90 O2 SATURATION ARTERIAL (BEAKER) (test lbyq=844) 93.5 % 96.0-97.0 HCO3 ARTERIAL (BEAKER) (test sedb=029) 27 mmol/L 21-29 BASE EXCESS ARTERIAL (BEAKER) (test qemc=991) 2.1 mmol/L -2.0-3.0 PATIENT TEMPERATURE (BEAKER) (test qkqr=8334) 36.9 C FIO2 (BEAKER) (test rjvj=5693) 40.0 % HEMOGLOBIN [id number] 13:57:00 Test Item Value Reference Range Comments HEMOGLOBIN A1C (BEAKER) (test xffx=723) 9.8 % 4.3-6.1 SODIUM, RANDOM [id number] 13:49:00 Test Item Value Reference Range Comments SODIUM URINE (BEAKER) (test nebi=949) 22 meq/L Reference Range: No NormalsTSH/FREE T4 IF [id number] 13:49:00 Test Item Value Reference Range Comments THYROID STIMULATING HORMONE (BEAKER) (test 0.27 uIU/mL 0.35-4.94 lkkd=046) POCT-GLUCOSE [id number] 13:47:00 Test Item Value Reference Range Comments POC-GLUCOSE METER (BEAKER) 398 mg/dL 70-110 TESTED AT [facility] [address] (test wvwc=2358) [place] [address] CREATININE, RANDOM [id number] 13:43:00 Test Item Value Reference Range Comments CREATININE URINE (BEAKER) (test ypyo=593) 85.4 mg/dL Reference Range: No NormalsPROTEIN, RANDOM [id number] 13:43:00 Test Item Value Reference Range Comments PROTEIN, URINE (BEAKER) (test olzu=1296) 75 mg/dL 0-14 B-TYPE NATRIURETIC FACTOR (BNP)2017-07-18 13:17:00 Test Item Value Reference Range Comments B-TYPE NATRIURETIC PEPTIDE (BEAKER) (test 1847 pg/mL 0-100 xrpf=131) BASIC METABOLIC [id number] 13:13:00 Test Item Value Reference Range Comments SODIUM (BEAKER) (test 138 meq/L 136-145 dakx=258) POTASSIUM (BEAKER) (test 4.8 meq/L 3.5-5.1 esml=214) CHLORIDE (BEAKER) (test 101 meq/L 98-107 sxhw=122) CO2 (BEAKER) (test 26 meq/L 22-29 gxdg=960) BLOOD UREA NITROGEN 21 mg/dL 7-21 (BEAKER) (test gutt=246) CREATININE (BEAKER) (test 1.62 mg/dL 0.57-1.25 zpff=742) GLUCOSE RANDOM (BEAKER) 527 mg/dL 70-105 (test tejs=651) CALCIUM (BEAKER) (test 8.9 mg/dL 8.4-10.2 vpyl=364) EGFR (BEAKER) (test 38 mL/min/1.73 sq m ESTIMATED GFR IS NOT axmt=7605) ACCURATE CREATININE CLEARANCE IN PREDICTING GLOMERULAR FILTRATION RATE. ESTIMATED GFR IS NOT APPLICABLE FOR DIALYSIS PATIENTS. If last glucose was less than 500, may do bedside glucose instead of serum glucose.[id number] 13:12:00 Test Item Value Reference Range Comments MAGNESIUM (BEAKER) (test haid=261) 1.9 mg/dL 1.6-2.6 If last glucose was less than 500, may do bedside glucose instead of serum glucose.[id number] 13:12:00 Test Item Value Reference Range Comments LIPASE (BEAKER) (test hfeb=475) 106 U/L 8-78 If last glucose was less than 500, may do bedside glucose instead of serum glucose.[id number] 13:11:00 Test Item Value Reference Range Comments PHOSPHORUS (BEAKER) (test behf=781) 3.3 mg/dL 2.3-4.7 If last glucose was less than 500, may do bedside glucose instead of serum glucose.POCT-GLUCOSE [id number] 12:49:00 Test Item Value Reference Range Comments POC-GLUCOSE METER (BEAKER) 498 mg/dL 70-110 Notified PAULA BERGER/TESTED AT [facility] (test ybwh=6394) [address] [place] [address] LACTIC ACID, VENOUS, WHOLE [id number] 12:11:00 Test Item Value Reference Range Comments LACTATE BLOOD VENOUS (2) (BEAKER) (test 3.8 mmol/L 0.5-2.2 rzkc=8317) Effective 08/06/2015: Units/Reference Range ChangeNew: 0.5-2.2 mmol/L Previous: 5 -20 mg/[id number] 12:10:00 Test Item Value Reference Range Comments PROCALCITONIN (BEAKER) (test wcez=1814) 3.80 ng/mL <0.05 SEPSIS RISK (ng/mL)Low: 0.05-0.50Intermediate: 0.51-2.00High: & gt;=2.01CBC W/PLT COUNT & AUTO [id number] 12:10:00 Test Item Value Reference Range Comments WHITE BLOOD CELL COUNT (BEAKER) (test fowx=067) 11.2 K/ L 3.5-10.5 RED BLOOD CELL COUNT (BEAKER) (test hrna=809) 3.98 M/ L 3.93-5.22 HEMOGLOBIN (BEAKER) (test exyk=273) 12.0 GM/DL 11.2-15.7 HEMATOCRIT (BEAKER) (test wmgi=333) 38.5 % 34.1-44.9 MEAN CORPUSCULAR VOLUME (BEAKER) (test eagu=913) 96.7 fL 79.4-94.8 MEAN CORPUSCULAR HEMOGLOBIN (BEAKER) (test 30.2 pg 25.6-32.2 vzat=498) MEAN CORPUSCULAR HEMOGLOBIN CONC (BEAKER) (test 31.2 GM/DL 32.2-35.5 wlqf=706) RED CELL DISTRIBUTION WIDTH (BEAKER) (test 13.1 % 11.7-14.4 jigm=538) PLATELET COUNT (BEAKER) (test hjsw=162) 222 K/CU MM 150-450 MEAN PLATELET VOLUME (BEAKER) (test nblo=348) 10.2 fL 9.4-12.3 NUCLEATED RED BLOOD CELLS (BEAKER) (test 0 /100 WBC 0-0 ktkd=120) NEUTROPHILS RELATIVE PERCENT (BEAKER) (test 96 % fgdi=167) LYMPHOCYTES RELATIVE PERCENT (BEAKER) (test 2 % banr=757) MONOCYTES RELATIVE PERCENT (BEAKER) (test 2 % wjyh=773) EOSINOPHILS RELATIVE PERCENT (BEAKER) (test 0 % ptvx=403) BASOPHILS RELATIVE PERCENT (BEAKER) (test 0 % vklm=339) NEUTROPHILS ABSOLUTE COUNT (BEAKER) (test 10.72 K/ L 1.56-6.13 vsay=421) LYMPHOCYTES ABSOLUTE COUNT (BEAKER) (test 0.24 K/ L 1.18-3.74 rbux=630) MONOCYTES ABSOLUTE COUNT (BEAKER) (test 0.22 K/ L 0.24-0.36 sohb=909) EOSINOPHILS ABSOLUTE COUNT (BEAKER) (test 0.00 K/ L 0.04-0.36 mmrp=281) BASOPHILS ABSOLUTE COUNT (BEAKER) (test 0.01 K/ L 0.01-0.08 jnps=392) IMMATURE GRANULOCYTES-RELATIVE PERCENT (BEAKER) 0 % 0-1 (test tgyj=1817) BASIC METABOLIC [id number] 11:35:00 Test Item Value Reference Range Comments SODIUM (BEAKER) (test 136 meq/L 136-145 zago=372) POTASSIUM (BEAKER) (test 4.8 meq/L 3.5-5.1 ggyj=968) CHLORIDE (BEAKER) (test 99 meq/L 98-107 kbvi=951) CO2 (BEAKER) (test 25 meq/L 22-29 ehfz=970) BLOOD UREA NITROGEN 19 mg/dL 7-21 (BEAKER) (test zmar=360) CREATININE (BEAKER) (test 1.61 mg/dL 0.57-1.25 omph=377) GLUCOSE RANDOM (BEAKER) 568 mg/dL 70-105 (test mqll=995) CALCIUM (BEAKER) (test 8.9 mg/dL 8.4-10.2 ovmp=201) EGFR (BEAKER) (test 38 mL/min/1.73 sq m ESTIMATED GFR IS NOT edef=1683) ACCURATE CREATININE CLEARANCE IN PREDICTING GLOMERULAR FILTRATION RATE. ESTIMATED GFR IS NOT APPLICABLE FOR DIALYSIS PATIENTS. BLOOD GAS, [id number] 10:57:00 Test Item Value Reference Range Comments PH ARTERIAL (BEAKER) (test llfq=680) 7.36 7.35-7.45 PCO2 ARTERIAL (BEAKER) (test nvqu=580) 47 mmHg 35-45 PO2 ARTERIAL (BEAKER) (test tbgx=878) 78 mmHg 80-90 O2 SATURATION ARTERIAL (BEAKER) (test hikw=440) 95.0 % 96.0-97.0 HCO3 ARTERIAL (BEAKER) (test alvd=587) 26 mmol/L 21-29 BASE EXCESS ARTERIAL (BEAKER) (test iwom=221) 0.4 mmol/L -2.0-3.0 PATIENT TEMPERATURE (BEAKER) (test fcft=6968) 37.0 C FIO2 (BEAKER) (test gonu=8546) 100.0 % RAD, CHEST, 1 VIEW, NON [id number] 10:38:00Reason for exam:->IABP Should this be performed [...] MDReport Verified Date/Time: 07/18/2017 10:38:31 Reading Location: [facility] Radiology Reading Room CBC W/PLT COUNT & AUTO [id number] 10: 01:00 Test Item Value Reference Range Comments WHITE BLOOD CELL COUNT (BEAKER) (test xrxq=596) 12.8 K/ L 3.5-10.5 RED BLOOD CELL COUNT (BEAKER) (test ealh=469) 3.95 M/ L 3.93-5.22 HEMOGLOBIN (BEAKER) (test qaav=217) 11.9 GM/DL 11.2-15.7 HEMATOCRIT (BEAKER) (test cgkc=214) 38.3 % 34.1-44.9 MEAN CORPUSCULAR VOLUME (BEAKER) (test klgu=895) 97.0 fL 79.4-94.8 MEAN CORPUSCULAR HEMOGLOBIN (BEAKER) (test 30.1 pg 25.6-32.2 lsas=098) MEAN CORPUSCULAR HEMOGLOBIN CONC (BEAKER) (test 31.1 GM/DL 32.2-35.5 wcpu=950) RED CELL DISTRIBUTION WIDTH (BEAKER) (test 13.1 % 11.7-14.4 ppxg=100) PLATELET COUNT (BEAKER) (test bpaq=351) 231 K/CU MM 150-450 MEAN PLATELET VOLUME (BEAKER) (test ztib=734) 10.4 fL 9.4-12.3 NUCLEATED RED BLOOD CELLS (BEAKER) (test 0 /100 WBC 0-0 pxde=862) NEUTROPHILS RELATIVE PERCENT (BEAKER) (test 91 % oymf=427) LYMPHOCYTES RELATIVE PERCENT (BEAKER) (test 4 % vbla=072) MONOCYTES RELATIVE PERCENT (BEAKER) (test 4 % hzir=140) EOSINOPHILS RELATIVE PERCENT (BEAKER) (test 0 % epmc=221) BASOPHILS RELATIVE PERCENT (BEAKER) (test 0 % jqzw=778) NEUTROPHILS ABSOLUTE COUNT (BEAKER) (test 11.66 K/ L 1.56-6.13 fpcs=121) LYMPHOCYTES ABSOLUTE COUNT (BEAKER) (test 0.53 K/ L 1.18-3.74 mqlz=883) MONOCYTES ABSOLUTE COUNT (BEAKER) (test 0.49 K/ L 0.24-0.36 tcsu=560) EOSINOPHILS ABSOLUTE COUNT (BEAKER) (test 0.01 K/ L 0.04-0.36 nwxg=862) BASOPHILS ABSOLUTE COUNT (BEAKER) (test 0.03 K/ L 0.01-0.08 ghqw=918) IMMATURE GRANULOCYTES-RELATIVE PERCENT (BEAKER) 0 % 0-1 (test myjw=6549) COMPREHENSIVE METABOLIC [id number] 09:38:00 Test Item Value Reference Range Comments TOTAL PROTEIN (BEAKER) 6.7 gm/dL 6.0-8.3 Specimen slightly (test jpgi=061) hemolyzed ALBUMIN (BEAKER) (test 3.5 g/dL 3.5-5.0 Specimen slightly lihf=6492) hemolyzed ALKALINE PHOSPHATASE 70 U/L 40-150 (BEAKER) (test tyyh=977) BILIRUBIN TOTAL (BEAKER) 0.6 mg/dL 0.2-1.2 Specimen slightly (test fevv=033) hemolyzed SODIUM (BEAKER) (test 134 meq/L 136-145 vdvf=512) POTASSIUM (BEAKER) (test 4.7 meq/L 3.5-5.1 Specimen slightly khmb=500) hemolyzed CHLORIDE (BEAKER) (test 98 meq/L 98-107 wlwd=929) CO2 (BEAKER) (test 25 meq/L 22-29 femf=914) BLOOD UREA NITROGEN 19 mg/dL 7-21 (BEAKER) (test lgsu=025) CREATININE (BEAKER) (test 1.57 mg/dL 0.57-1.25 Specimen slightly yozq=417) hemolyzed GLUCOSE RANDOM (BEAKER) 652 mg/dL 70-105 (test rsry=937) CALCIUM (BEAKER) (test 8.7 mg/dL 8.4-10.2 zvap=039) AST (SGOT) (BEAKER) (test 343 U/L 5-34 Specimen slightly eggl=100) hemolyzed ALT (SGPT) (BEAKER) (test 89 U/L 6-55 Specimen slightly vaql=079) hemolyzed EGFR (BEAKER) (test 39 mL/min/1.73 sq m ESTIMATED GFR IS NOT teht=3721) ACCURATE CREATININE CLEARANCE IN PREDICTING GLOMERULAR FILTRATION RATE. ESTIMATED GFR IS NOT APPLICABLE FOR DIALYSIS PATIENTS. [id number] 09:09:00 Test Item Value Reference Range Comments ACTIVATED CLOTTING TIME 252 sec TESTED AT [facility] [address] [facility] (BEAKER) (test dpzp=109) [place] [address] PROTHROMBIN [id number] 09:01:00 Test Item Value Reference Range Comments PROTIME (BEAKER) (test ffkj=581) 18.3 seconds 11.7-14.7 INR (BEAKER) (test aydy=600) 1.5 <=5.9 RECOMMENDED COUMADIN/WARFARIN INR THERAPY RANGESSTANDARD DOSE: 2.0 - 3.0 Includes: PROPHYLAXIS forvenous thrombosis, systemic embolization; TREATMENT for venous thrombosis and/or pulmonary embolus.HIGH RISK: Target INR is 2.5-3.5 for patients with mechanical heart valves.[id number] 08:09:00 Test Item Value Reference Range Comments ACTIVATED CLOTTING TIME 213 sec TESTED AT [address] ([facility]) (test omsl=197) [place] [address] [id number] 08:09:00 Test Item Value Reference Range Comments ACTIVATED CLOTTING TIME 263 sec TESTED AT [address] ([facility]) (test zaip=012) [place] [address] BLOOD GAS, [id number] 07:50:00 Test Item Value Reference Range Comments PH ARTERIAL (BEAKER) (test xmsj=074) 7.20 7.35-7.45 PCO2 ARTERIAL (BEAKER) (test jhro=653) 65 mmHg 35-45 PO2 ARTERIAL (BEAKER) (test mdhm=348) 133 mmHg 80-90 O2 SATURATION ARTERIAL (BEAKER) (test tcqa=277) 98.1 % 96.0-97.0 HCO3 ARTERIAL (BEAKER) (test ehhh=808) 25 mmol/L 21-29 BASE EXCESS ARTERIAL (BEAKER) (test scdj=625) -4.3 mmol/L -2.0-3.0 PATIENT TEMPERATURE (BEAKER) (test nick=3645) 36.0 C FIO2 (BEAKER) (test vxkf=6665) 100.0 % POCT-GLUCOSE [id number] 12:27:00 Test Item Value Reference Range Comments POC-GLUCOSE METER (BEAKER) 156 mg/dL 70-110 TESTED AT [address] (test obpy=9419) [place] [address] BASIC METABOLIC [id number] 05:45:00 Test Item Value Reference Range Comments SODIUM (BEAKER) (test 141 meq/L 136-145 oxko=476) POTASSIUM (BEAKER) (test 4.1 meq/L 3.5-5.1 zrds=896) CHLORIDE (BEAKER) (test 106 meq/L 98-107 rpqy=316) CO2 (BEAKER) (test 26 meq/L 22-29 arps=992) BLOOD UREA NITROGEN 11 mg/dL 7-21 (BEAKER) (test ydbn=803) CREATININE (BEAKER) (test 0.83 mg/dL 0.57-1.25 gvmp=050) GLUCOSE RANDOM (BEAKER) 139 mg/dL 70-105 (test tizr=654) CALCIUM (BEAKER) (test 8.5 mg/dL 8.4-10.2 prna=709) EGFR (BEAKER) (test 83 mL/min/1.73 sq m ESTIMATED GFR IS NOT fvoj=7858) ACCURATE CREATININE CLEARANCE IN PREDICTING GLOMERULAR FILTRATION RATE. ESTIMATED GFR IS NOT APPLICABLE FOR DIALYSIS PATIENTS. POCT-GLUCOSE [id number] 21:10:00 Test Item Value Reference Range Comments POC-GLUCOSE METER (BEAKER) 103 mg/dL 70-110 TESTED AT [address] (test sboi=1951) [place] [address] POCT-GLUCOSE [id number] 17:51:00 Test Item Value Reference Range Comments POC-GLUCOSE METER (BEAKER) 138 mg/dL 70-110 TESTED AT [address] (test kmty=1710) [place] [address] POCT-GLUCOSE [id number] 12:45:00 Test Item Value Reference Range Comments POC-GLUCOSE METER (BEAKER) 294 mg/dL 70-110 TESTED AT [address] (test ddpv=5674) [place] [address] CBC WITH PLATELET COUNT + MANUAL [id number] 07:04:00 Test Item Value Reference Range Comments WHITE BLOOD CELL COUNT (BEAKER) (test mfrz=492) 10.7 K/ L 4.0-10.0 RED BLOOD CELL COUNT (BEAKER) (test dnij=215) 3.91 M/ L 4.00-5.00 HEMOGLOBIN (BEAKER) (test bbvf=773) 12.9 GM/DL 12.0-15.0 HEMATOCRIT (BEAKER) (test usgv=233) 39.0 % 36.0-45.0 MEAN CORPUSCULAR VOLUME (BEAKER) (test cuvk=833) 99.6 fL 82.0-99.0 MEAN CORPUSCULAR HEMOGLOBIN (BEAKER) (test 32.9 pg 27.0-33.0 odnk=859) MEAN CORPUSCULAR HEMOGLOBIN CONC (BEAKER) (test 33.0 GM/DL 32.0-36.0 yuqj=916) RED CELL DISTRIBUTION WIDTH (BEAKER) (test 12.8 % 10.3-14.2 nwso=994) PLATELET COUNT (BEAKER) (test yiby=457) 251 K/CU MM 150-430 MEAN PLATELET VOLUME (BEAKER) (test svkm=619) 8.1 fL 6.5-10.5 NUCLEATED RED BLOOD CELLS (BEAKER) (test 0 /100 WBC 0-0 jusy=238) NEUTROPHILS RELATIVE PERCENT (BEAKER) (test 80 % fnbj=613) LYMPHOCYTES RELATIVE PERCENT (BEAKER) (test 14 % pwpp=559) MONOCYTES RELATIVE PERCENT (BEAKER) (test 6 % yigs=528) EOSINOPHILS RELATIVE PERCENT (BEAKER) (test 0 % kdhs=283) BASOPHILS RELATIVE PERCENT (BEAKER) (test 0 % xxqp=338) NEUTROPHILS ABSOLUTE COUNT (BEAKER) (test 8.55 K/ L 1.80-8.00 yfsr=934) LYMPHOCYTES ABSOLUTE COUNT (BEAKER) (test 1.46 K/ L 1.48-4.50 dblm=027) MONOCYTES ABSOLUTE COUNT (BEAKER) (test 0.60 K/ L 0.00-1.30 xlyc=724) EOSINOPHILS ABSOLUTE COUNT (BEAKER) (test 0.05 K/ L 0.00-0.50 mygu=255) BASOPHILS ABSOLUTE COUNT (BEAKER) (test 0.02 K/ L 0.00-0.20 pkfp=417) 0.00(MANUAL DIFFERENTIAL)2016-06-14 07:04:00 Test Item Value Reference Range Comments TOTAL COUNTED (BEAKER) (test ebrf=6891) PLT MORPHOLOGY (BEAKER) (test fmzv=690) Normal RBC MORPHOLOGY (BEAKER) (test krbi=842) Normal ATYPICAL LYMPHS(BEAKER) (test qxgp=6191) Present BASIC METABOLIC [id number] 05:05:00 Test Item Value Reference Range Comments SODIUM (BEAKER) (test 140 meq/L 136-145 fnzp=076) POTASSIUM (BEAKER) (test 3.8 meq/L 3.5-5.1 hpia=770) CHLORIDE (BEAKER) (test 107 meq/L 98-107 ojhl=438) CO2 (BEAKER) (test 26 meq/L 22-29 kxjo=047) BLOOD UREA NITROGEN 13 mg/dL 7-21 (BEAKER) (test knbf=450) CREATININE (BEAKER) (test 0.80 mg/dL 0.57-1.25 cccj=766) GLUCOSE RANDOM (BEAKER) 177 mg/dL 70-105 (test tpgs=480) CALCIUM (BEAKER) (test 8.3 mg/dL 8.4-10.2 mgeq=915) EGFR (BEAKER) (test 86 mL/min/1.73 sq m ESTIMATED GFR IS NOT rjdo=4683) ACCURATE CREATININE CLEARANCE IN PREDICTING GLOMERULAR FILTRATION RATE. ESTIMATED GFR IS NOT APPLICABLE FOR DIALYSIS PATIENTS. [id number] 04:48:00 Test Item Value Reference Range Comments PROTIME (BEAKER) (test ined=935) 13.0 seconds 11.7-14.7 INR (BEAKER) (test nabl=747) 1.0 <=5.9 PARTIAL THROMBOPLASTIN TIME (BEAKER) (test 31.8 seconds 22.5-36.0 dlyu=847) RECOMMENDED COUMADIN/WARFARIN INR THERAPY RANGESSTANDARD DOSE: 2.0 - 3.0 Includes: PROPHYLAXIS forvenous thrombosis, systemic embolization; TREATMENT for venous thrombosis and/or pulmonary embolus.HIGH RISK: Target INR is 2.5-3.5 for patients with mechanical heart valves.POCT-GLUCOSE [id number] 22:11:00 Test Item Value Reference Range Comments POC-GLUCOSE METER (BEAKER) 200 mg/dL 70-110 TESTED AT [facility] [address] [facility] (test mbti=5584) [facility] [address] POCT-GLUCOSE [id number] 17:13:00 Test Item Value Reference Range Comments POC-GLUCOSE METER (BEAKER) 225 mg/dL 70-110 TESTED AT [facility] [address] [facility] (test xngj=7204) [facility] [address] POCT-GLUCOSE [id number] 12:22:00 Test Item Value Reference Range Comments POC-GLUCOSE METER (BEAKER) 309 mg/dL 70-110 Notified PAULA BERGER/TESTED AT [facility] (test qtyk=8481) [address] [place] [address] URINALYSIS W/ [id number] 12:09:00 Test Item Value Reference Range Comments COLOR (BEAKER) (test ctls=108) Yellow CLARITY (BEAKER) (test lhnz=486) Clear SPECIFIC GRAVITY UA (BEAKER) (test digo=368) 1.035 1.001-1.035 PH UA (BEAKER) (test thvz=672) 5.0 5.0-8.0 PROTEIN UA (BEAKER) (test ggeh=295) Negative Negative GLUCOSE UA (BEAKER) (test eujm=088) 150 mg/dL Negative KETONES UA (BEAKER) (test mgrm=226) Negative Negative BILIRUBIN UA (BEAKER) (test fiqq=074) Negative Negative BLOOD UA (BEAKER) (test dftv=027) Small Negative NITRITE UA (BEAKER) (test gssz=712) Negative Negative LEUKOCYTE ESTERASE UA (BEAKER) (test rjsk=757) Negative Negative UROBILINOGEN UA (BEAKER) (test jrrr=779) 0.2 mg/dL 0.2-1.0 RBC UA (BEAKER) (test sjsf=387) 6 /HPF WBC UA (BEAKER) (test hnjy=376) 1 /HPF MUCUS (BEAKER) (test guvs=6872) Rare SQUAMOUS EPITHELIAL (BEAKER) (test wwab=160) 6 /HPF HYALINE CASTS (BEAKER) (test chxr=354) 2 /LPF SOURCE(BEAKER) (test zphy=4074) POCT-GLUCOSE [id number] 07:58:00 Test Item Value Reference Range Comments POC-GLUCOSE METER (BEAKER) 236 mg/dL 70-110 TESTED AT [address] (test flmr=9088) [facility] [address] BASIC METABOLIC [id number] 04:10:00 Test Item Value Reference Range Comments SODIUM (BEAKER) (test 138 meq/L 136-145 rklg=092) POTASSIUM (BEAKER) (test 4.2 meq/L 3.5-5.1 lwnu=062) CHLORIDE (BEAKER) (test 107 meq/L 98-107 hqie=172) CO2 (BEAKER) (test 22 meq/L 22-29 unwt=719) BLOOD UREA NITROGEN 20 mg/dL 7-21 (BEAKER) (test uzfk=065) CREATININE (BEAKER) (test 1.00 mg/dL 0.57-1.25 mxmt=965) GLUCOSE RANDOM (BEAKER) 246 mg/dL 70-105 (test awre=886) CALCIUM (BEAKER) (test 8.8 mg/dL 8.4-10.2 kfgi=651) EGFR (BEAKER) (test 67 mL/min/1.73 sq m ESTIMATED GFR IS NOT exba=1327) ACCURATE CREATININE CLEARANCE IN PREDICTING GLOMERULAR FILTRATION RATE. ESTIMATED GFR IS NOT APPLICABLE FOR DIALYSIS PATIENTS. PT/[id number] 04:03:00 Test Item Value Reference Range Comments PROTIME (BEAKER) (test jhrp=072) 12.8 seconds 11.7-14.7 INR (BEAKER) (test euvb=793) 1.0 <=5.9 PARTIAL THROMBOPLASTIN TIME (BEAKER) (test 29.6 seconds 22.5-36.0 cyio=652) RECOMMENDED COUMADIN/WARFARIN INR THERAPY RANGESSTANDARD DOSE: 2.0 - 3.0 Includes: PROPHYLAXIS forvenous thrombosis, systemic embolization; TREATMENT for venous thrombosis and/or pulmonary embolus.HIGH RISK: Target INR is 2.5-3.5 for patients with mechanical heart valves.CBC WITH PLATELET COUNT + MANUAL [id number] 03:58:00 Test Item Value Reference Range Comments WHITE BLOOD CELL COUNT (BEAKER) (test thhz=240) 14.3 K/ L 4.0-10.0 RED BLOOD CELL COUNT (BEAKER) (test haik=016) 4.03 M/ L 4.00-5.00 HEMOGLOBIN (BEAKER) (test dtco=143) 13.1 GM/DL 12.0-15.0 HEMATOCRIT (BEAKER) (test tqll=408) 39.7 % 36.0-45.0 MEAN CORPUSCULAR VOLUME (BEAKER) (test kigv=156) 98.5 fL 82.0-99.0 MEAN CORPUSCULAR HEMOGLOBIN (BEAKER) (test 32.6 pg 27.0-33.0 zjxo=821) MEAN CORPUSCULAR HEMOGLOBIN CONC (BEAKER) (test 33.1 GM/DL 32.0-36.0 epoh=389) RED CELL DISTRIBUTION WIDTH (BEAKER) (test 12.9 % 10.3-14.2 inew=836) PLATELET COUNT (BEAKER) (test wxpl=265) 271 K/CU MM 150-430 MEAN PLATELET VOLUME (BEAKER) (test abhs=207) 7.7 fL 6.5-10.5 NUCLEATED RED BLOOD CELLS (BEAKER) (test 0 /100 WBC 0-0 qaxl=564) NEUTROPHILS RELATIVE PERCENT (BEAKER) (test 87 % iyyl=290) LYMPHOCYTES RELATIVE PERCENT (BEAKER) (test 7 % fofc=305) MONOCYTES RELATIVE PERCENT (BEAKER) (test 6 % fniu=187) EOSINOPHILS RELATIVE PERCENT (BEAKER) (test 0 % jyat=855) BASOPHILS RELATIVE PERCENT (BEAKER) (test 0 % doij=217) NEUTROPHILS ABSOLUTE COUNT (BEAKER) (test 12.40 K/ L 1.80-8.00 zsrm=456) LYMPHOCYTES ABSOLUTE COUNT (BEAKER) (test 1.06 K/ L 1.48-4.50 pxic=075) MONOCYTES ABSOLUTE COUNT (BEAKER) (test 0.81 K/ L 0.00-1.30 yigz=158) EOSINOPHILS ABSOLUTE COUNT (BEAKER) (test 0.01 K/ L 0.00-0.50 wlpw=815) BASOPHILS ABSOLUTE COUNT (BEAKER) (test 0.03 K/ L 0.00-0.20 waqz=804) [id number]-GLUCOSE [id number] 22:17:00 Test Item Value Reference Range Comments POC-GLUCOSE METER (BEAKER) 260 mg/dL 70-110 TESTED AT [address] (test xitr=8879) [facility] [address] POCT-GLUCOSE [id number] 12:11:00 Test Item Value Reference Range Comments POC-GLUCOSE METER (BEAKER) 278 mg/dL 70-110 TESTED AT [address] (test duxr=8784) [facility] [address] HEMOGLOBIN [id number] 10:46:00 Test Item Value Reference Range Comments HEMOGLOBIN A1C (BEAKER) (test sqnp=575) 9.7 % 4.3-6.1 DC\S\Delta Check\S\NONEPOCT-GLUCOSE [id number] 07:15:00 Test Item Value Reference Range Comments POC-GLUCOSE METER (BEAKER) 283 mg/dL 70-110 TESTED AT [facility] [address] (test jreh=0204) [facility] [address] BASIC METABOLIC [id number] 04:43:00 Test Item Value Reference Range Comments SODIUM (BEAKER) (test 136 meq/L 136-145 wxzj=738) POTASSIUM (BEAKER) (test 4.0 meq/L 3.5-5.1 ysas=753) CHLORIDE (BEAKER) (test 102 meq/L 98-107 hdpu=245) CO2 (BEAKER) (test 27 meq/L 22-29 ndaw=440) BLOOD UREA NITROGEN 18 mg/dL 7-21 (BEAKER) (test htfx=077) CREATININE (BEAKER) (test 0.95 mg/dL 0.57-1.25 uucm=805) GLUCOSE RANDOM (BEAKER) 256 mg/dL 70-105 (test vkjh=801) CALCIUM (BEAKER) (test 9.0 mg/dL 8.4-10.2 kwai=043) EGFR (BEAKER) (test 71 mL/min/1.73 sq m ESTIMATED GFR IS NOT xmef=8709) ACCURATE CREATININE CLEARANCE IN PREDICTING GLOMERULAR FILTRATION RATE. ESTIMATED GFR IS NOT APPLICABLE FOR DIALYSIS PATIENTS. CBC WITH PLATELET COUNT + MANUAL [id number] 04:28:00 Test Item Value Reference Range Comments WHITE BLOOD CELL COUNT (BEAKER) (test mmur=900) 11.6 K/ L 4.0-10.0 RED BLOOD CELL COUNT (BEAKER) (test qdmx=103) 4.15 M/ L 4.00-5.00 HEMOGLOBIN (BEAKER) (test hyqu=306) 13.3 GM/DL 12.0-15.0 HEMATOCRIT (BEAKER) (test blhg=167) 40.5 % 36.0-45.0 MEAN CORPUSCULAR VOLUME (BEAKER) (test riqx=575) 97.6 fL 82.0-99.0 MEAN CORPUSCULAR HEMOGLOBIN (BEAKER) (test 32.1 pg 27.0-33.0 ygpf=265) MEAN CORPUSCULAR HEMOGLOBIN CONC (BEAKER) (test 32.9 GM/DL 32.0-36.0 hwmt=811) RED CELL DISTRIBUTION WIDTH (BEAKER) (test 12.7 % 10.3-14.2 zjre=765) PLATELET COUNT (BEAKER) (test krzj=881) 263 K/CU MM 150-430 MEAN PLATELET VOLUME (BEAKER) (test cmsn=639) 8.2 fL 6.5-10.5 NUCLEATED RED BLOOD CELLS (BEAKER) (test 0 /100 WBC 0-0 wcjx=028) NEUTROPHILS RELATIVE PERCENT (BEAKER) (test 90 % ndeb=825) LYMPHOCYTES RELATIVE PERCENT (BEAKER) (test 8 % yqsk=491) MONOCYTES RELATIVE PERCENT (BEAKER) (test 2 % ecbb=952) EOSINOPHILS RELATIVE PERCENT (BEAKER) (test 0 % xkms=309) BASOPHILS RELATIVE PERCENT (BEAKER) (test 0 % hstt=329) NEUTROPHILS ABSOLUTE COUNT (BEAKER) (test 10.40 K/ L 1.80-8.00 fesv=631) LYMPHOCYTES ABSOLUTE COUNT (BEAKER) (test 0.95 K/ L 1.48-4.50 cnep=769) MONOCYTES ABSOLUTE COUNT (BEAKER) (test 0.20 K/ L 0.00-1.30 ijmd=762) EOSINOPHILS ABSOLUTE COUNT (BEAKER) (test 0.02 K/ L 0.00-0.50 lfav=177) BASOPHILS ABSOLUTE COUNT (BEAKER) (test 0.02 K/ L 0.00-0.20 vmva=080) 0.00PT/[id number] 04:25:00 Test Item Value Reference Range Comments PROTIME (BEAKER) (test dmzj=140) 13.7 seconds 11.7-14.7 INR (BEAKER) (test fdna=453) 1.1 <=5.9 PARTIAL THROMBOPLASTIN TIME (BEAKER) (test 32.8 seconds 22.5-36.0 sfcx=832) RECOMMENDED COUMADIN/WARFARIN INR THERAPY RANGESSTANDARD DOSE: 2.0 - 3.0 Includes: PROPHYLAXIS forvenous thrombosis, systemic embolization; TREATMENT for venous thrombosis and/or pulmonary embolus.HIGH RISK: Target INR is 2.5-3.5 for patients with mechanical heart valves.POCT-GLUCOSE [id number] 02:47:00 Test Item Value Reference Range Comments POC-GLUCOSE METER (BEAKER) 278 mg/dL 70-110 TESTED AT [facility] [address] [facility] (test hrpn=7992) [facility] [address] POCT-GLUCOSE [id number] 22:12:00 Test Item Value Reference Range Comments POC-GLUCOSE METER (BEAKER) 258 mg/dL 70-110 TESTED AT [facility] [address] (test gwsy=0471) [facility] [address] [id number] 15:44:00 Test Item Value Reference Range Comments MAGNESIUM (BEAKER) (test 2.1 mg/dL 1.6-2.6 Specimen slightly hemolyzed txnz=713) [id number] 15:44:00 Test Item Value Reference Range Comments PHOSPHORUS (BEAKER) (test 2.9 mg/dL 2.3-4.7 Specimen slightly hemolyzed xhkm=481) BASIC METABOLIC [id number] 15:44:00 Test Item Value Reference Range Comments SODIUM (BEAKER) (test 137 meq/L 136-145 ikgw=104) POTASSIUM (BEAKER) (test 4.4 meq/L 3.5-5.1 Specimen slightly cqmp=970) hemolyzed CHLORIDE (BEAKER) (test 99 meq/L 98-107 ulni=979) CO2 (BEAKER) (test 27 meq/L 22-29 rpjo=233) BLOOD UREA NITROGEN 13 mg/dL 7-21 (BEAKER) (test yewf=029) CREATININE (BEAKER) (test 0.96 mg/dL 0.57-1.25 Specimen slightly mpnl=789) hemolyzed GLUCOSE RANDOM (BEAKER) 250 mg/dL 70-105 (test gqbb=534) CALCIUM (BEAKER) (test 9.6 mg/dL 8.4-10.2 toid=734) EGFR (BEAKER) (test 70 mL/min/1.73 sq m ESTIMATED GFR IS NOT tkbf=3778) ACCURATE CREATININE CLEARANCE IN PREDICTING GLOMERULAR FILTRATION RATE. ESTIMATED GFR IS NOT APPLICABLE FOR DIALYSIS PATIENTS. CBC WITH PLATELET COUNT + MANUAL [id number] 15:39:00 Test Item Value Reference Range Comments WHITE BLOOD CELL COUNT (BEAKER) (test akzx=020) 9.5 K/ L 4.0-10.0 RED BLOOD CELL COUNT (BEAKER) (test evrw=145) 4.18 M/ L 4.00-5.00 HEMOGLOBIN (BEAKER) (test expc=661) 14.0 GM/DL 12.0-15.0 HEMATOCRIT (BEAKER) (test aeqx=286) 40.7 % 36.0-45.0 MEAN CORPUSCULAR VOLUME (BEAKER) (test pnwp=061) 97.3 fL 82.0-99.0 MEAN CORPUSCULAR HEMOGLOBIN (BEAKER) (test 33.4 pg 27.0-33.0 bnro=645) MEAN CORPUSCULAR HEMOGLOBIN CONC (BEAKER) (test 34.3 GM/DL 32.0-36.0 goak=228) RED CELL DISTRIBUTION WIDTH (BEAKER) (test 12.6 % 10.3-14.2 jqjj=555) PLATELET COUNT (BEAKER) (test xjft=597) 253 K/CU MM 150-430 MEAN PLATELET VOLUME (BEAKER) (test lmzv=590) 8.1 fL 6.5-10.5 NUCLEATED RED BLOOD CELLS (BEAKER) (test 0 /100 WBC 0-0 khiu=434) NEUTROPHILS RELATIVE PERCENT (BEAKER) (test 91 % dwxd=486) LYMPHOCYTES RELATIVE PERCENT (BEAKER) (test 8 % cohn=671) MONOCYTES RELATIVE PERCENT (BEAKER) (test 1 % irzv=852) EOSINOPHILS RELATIVE PERCENT (BEAKER) (test 0 % dhkq=573) BASOPHILS RELATIVE PERCENT (BEAKER) (test 0 % aguq=657) NEUTROPHILS ABSOLUTE COUNT (BEAKER) (test 8.66 K/ L 1.80-8.00 zzqc=531) LYMPHOCYTES ABSOLUTE COUNT (BEAKER) (test 0.78 K/ L 1.48-4.50 lkpa=596) MONOCYTES ABSOLUTE COUNT (BEAKER) (test 0.07 K/ L 0.00-1.30 ulza=621) EOSINOPHILS ABSOLUTE COUNT (BEAKER) (test 0.01 K/ L 0.00-0.50 segj=205) BASOPHILS ABSOLUTE COUNT (BEAKER) (test 0.01 K/ L 0.00-0.20 hnkj=685) [id number] 15:39:00 Test Item Value Reference Range Comments PROTIME (BEAKER) (test bhha=587) 12.7 seconds 11.7-14.7 INR (BEAKER) (test aoms=787) 1.0 <=5.9 PARTIAL THROMBOPLASTIN TIME (BEAKER) (test 32.8 seconds 22.5-36.0 vdet=639) RECOMMENDED COUMADIN/WARFARIN INR THERAPY RANGESSTANDARD DOSE: 2.0 - 3.0 Includes: PROPHYLAXIS forvenous thrombosis, systemic embolization; TREATMENT for venous thrombosis and/or pulmonary embolus.HIGH RISK: Target INR is 2.5-3.5 for patients with mechanical heart valves.
[2018-04-06 18:50] LABS: Absolute Lymphocytes (CBC) 0.5 K/uL (0.7-4.9); Absolute Monocytes 0.2 K/uL (0.1-1.3); Absolute Neutrophil 5.4 K/uL (1.8-8.0); Basophils % 1.2 % (0-1.3); Eosinophils % 0.7 % (0-4.4); Lymphocytes % 7.5 % (15.3-44.8); MPV 8.7 fL (7.6-11.3); Monocytes % 3.9 % (3.3-12.3); RBC Red Blood Cell Count 3.62 M/uL (3.86-4.86)
[2018-04-06 18:54] LABS: Protime INR 1.23
[2018-04-06 19:21] LABS: Anisocytosis 1+; Blood Morphology Comment NOTED (NOT SEEN); Burr Cells 2+; Platelet Estimate ADEQ; Urine White Blood Cell Casts OK
[2018-04-06] MEDS ORDERED: FUROSEMIDE 40 MG/4 ML VIAL ONE (19:32)
[2018-04-06 19:34] LABS: ALT/SGPT 44 U/L (12-78); AST/SGOT 18 U/L (15-37); Albumin 3.3 g/dL (3.4-5.0); Alkaline Phosphatase 133 U/L (45-117); BUN Blood Urea Nitrogen 32 mg/dL (7-18); Bicarbonate 28 mmol/L (21-32); Bilirubin Direct 0.4 mg/dL (0-0.2); Bilirubin Total 0.7 mg/dL (0.2-1.0); Glucose Level 114 mg/dL (74-106); Magnesium 2.6 mg/dL (1.8-2.4); NT PRO-BNP 47049 pg/mL (<125); Potassium 3.8 mmol/L (3.5-5.1); Protein, Total 7.7 g/dL (6.4-8.2); Sodium Level 141 mmol/L (136-145); Troponin (Emerg Dept Use Only) < 0.02 ng/mL (0.0-0.045)
--- NOTE | 2018-04-06 19:50 | RAD REPORT ---
EXAM DESCRIPTION: Angy Single View04/06/2018 7:10 pm CLINICAL HISTORY: Shortness of breath COMPARISON: February 2018 FINDINGS: The lungs appear clear of acute infiltrate. The heart is moderately enlarged. Aorta is to rtuous/ectatic. Small right pleural effusion is present
--- NOTE | 2018-04-06 19:51 | EDPHYS ---
Physician Documentation [facility] Name: Christa Ayala Age: 72 yrs Sex: Female : 1945 Arrival Date: 04/06/2018 Time: 18:01 Bed 6 Private MD: ED Physician Antonio Kim HPI: 04/06 19:07 This 72 yrs old Black Female presents to ER via EMS with complaints of Breathing abhi Difficulty. 19:07 The patient has shortness of breath at rest, with light activity. Onset: The abhi symptoms/episode began/occurred 2 day(s) ago. Duration: The symptoms are continuous, and are steadily getting worse. The patient's shortness of breath has no apparent modifying factors. Associated signs and symptoms: The patient has no apparent associated signs or symptoms. Severity of symptoms: At their worst the symptoms were mild moderate in the emergency department the symptoms are unchanged. The patient has not experienced similar symptoms in the past. Historical: - Allergies: 18:09 Codeine; jl7 18:09 Iodine; jl7 - Home Meds: 19:21 aspirin 81 mg Oral TbEC 1 tab once daily [Active]; escitalopram oxalate 10 mg oral tab hb 1 tab once daily [Active]; Entresto 24-26 mg oral tab twice a day [Active]; atorvastatin 40 mg oral tab 1 tab nightly [Active]; Plavix 75 mg Oral tab 1 tab once daily [Active]; Lasix 40 mg Oral tab 1 tab 2 times per day [Active]; glimepiride 1 mg Oral tab 1 tab once daily [Active]; metoprolol tartrate 25 mg Oral tab 1 tab 2 times per day [Active]; pantoprazole 40 mg oral TbEC 1 tab once daily [Active]; Trellegy 100 mg/62.5mg/25mg daily [Active]; ProAir HFA 90 mcg/actuation inhalation HFAA 1 puff as needed [Active]; - PMHx: 18:09 CHF; COPD; Diabetes - NIDDM; Emphysema; enlarged aorta; Myocardial infarction; jl7 Hypertension; - Immunization history:: Adult Immunizations. - Ebola Screening: : No symptoms or risks identified at this time. - Social history:: Smoking status: . - Family history:: not pertinent. ROS: 19:07 Constitutional: Negative for fever, chills, and weight loss, Eyes: Negative for injury, abhi pain, redness, and discharge, ENT: Negative for injury, pain, and discharge, Neck: Negative for injury, pain, and swelling, Cardiovascular: Negative for chest pain, palpitations, and edema, Abdomen/GI: Negative for abdominal pain, nausea, vomiting, diarrhea, and constipation, Back: Negative for injury and pain, : Negative for injury, bleeding, discharge, and swelling, Skin: Negative for injury, rash, and discoloration, Neuro: Negative for headache, weakness, numbness, tingling, and seizure. 19:07 Respiratory: Positive for cough, shortness of breath, on exertion. 19:07 : Positive for 19:07 MS/extremity: Positive for pain, swelling, tenderness, of the right leg and left leg. Exam: 19:07 Constitutional: This is a well developed, well nourished patient who is awake, alert, abhi and in no acute distress. Head/Face: Normocephalic, atraumatic. Eyes: Pupils equal round and reactive to light, extra-ocular motions intact. Lids and lashes normal. Conjunctiva and sclera are non-icteric and not injected. Cornea within normal limits. Periorbital areas with no swelling, redness, or edema. ENT: Nares patent. No nasal discharge, no septal abnormalities noted. Tympanic membranes are normal and external auditory canals are clear. Oropharynx with no redness, swelling, or masses, exudates, or evidence of obstruction, uvula midline. Mucous membranes moist. Chest/axilla: Normal chest wall appearance and motion. Nontender with no deformity. No lesions are appreciated. Cardiovascular: Regular rate and rhythm with a normal S1 and S2. No gallops, murmurs, or rubs. Normal PMI, no JVD. No pulse deficits. Abdomen/GI: Soft, non-tender, with normal bowel sounds. No distension or tympany. No guarding or rebound. No evidence of tenderness throughout. Back: No spinal tenderness. No costovertebral tenderness. Full range of motion. Female : Normal external genitalia. Skin: Warm, dry with normal turgor. Normal color with no rashes, no lesions, and no evidence of cellulitis. Neuro: Awake and alert, GCS 15, oriented to person, place, time, and situation. Cranial nerves II-XII grossly intact. Motor strength 5/5 in all extremities. Sensory grossly intact. Cerebellar exam normal. Normal gait. Psych: Awake, alert, with orientation to person, place and time. Behavior, mood, and affect are within normal limits. 19:07 Neck: External neck: is normal, no acute changes, C-spine: appears grossly normal, no acute changes, Thyroid: appears normal, Trachea: is midline with no obvious abnormalities, Lymph nodes: no appreciated lymphadenopathy. 19:07 Respiratory: Breath sounds: rales, that are mild, that are moderate, are located in both bases. 19:12 Cardiovascular: Rate: normal, Rhythm: regular, Heart sounds: murmur, Edema: 3+ edema to abhi level of left midcalf and right midcalf, JVD: is noted bilaterally, to 3 cm. Vital Signs: 18:12 BP 138 / 92; Pulse 89; Resp 15; Temp 98.4; Pulse Ox 98% on 3 lpm NC; tw2 19:00 BP 136 / 102; Pulse 97; Resp 21; Pulse Ox 96% on 3 lpm NC; lp1 19:40 BP 145 / 103; Pulse 95; Resp 16; Pulse Ox 94% on 3 lpm NC; lp1 20:20 BP 148 / 107; Pulse 100; Resp 20; Pulse Ox 97% on 3 lpm NC; lp1 20:50 BP 148 / 102; Pulse 98; Resp 19; Pulse Ox 95% on 3 lpm NC; lp1 MDM: 18:54 Patient medically screened. [facility] 19:12 Data reviewed: vital signs, nurses notes, lab test result(s), EKG, radiologic studies, [facility] plain films. 04/06 18:11 Order name: Basic Metabolic Panel; Complete Time: 19:45 [facility] [address] 04/06 18:11 Order name: CBC with Diff; Complete Time: 19:29 [facility] [address] 04/06 18:11 Order name: LFT's; Complete Time: 19:45 [facility] [address] 04/06 18:11 Order name: Magnesium; Complete Time: 19:45 [facility] [address] 04/06 18:11 Order name: NT PRO-BNP; Complete Time: 19:45 [facility] [address] 04/06 18:11 Order name: PT-INR; Complete Time: 19:29 [facility] [address] 04/06 18:11 Order name: Troponin (emerg Dept Use Only); Complete Time: 19:45 [facility] [address] 04/06 18:11 Order name: XRAY Chest (1 view) [facility] [address] 04/06 18:11 Order name: EKG; Complete Time: 18:12 [facility] [address] 04/06 18:53 Order name: CBC Smear Scan; Complete Time: 19:29 [facility] 04/06 19:12 Order name: Urine Culture [facility] 04/06 19:49 Order name: Urine Dipstick--Ancillary (enter results) [place] 04/06 21:11 Order name: Glucose, Ancillary Testing [facility] 04/06 18:11 Order name: Cardiac monitoring; Complete Time: 18:45 [facility] [address] 04/06 18:11 Order name: EKG - Nurse/Tech; Complete Time: 19:50 [facility] [address] 04/06 18:11 Order name: IV Saline Lock; Complete Time: 18:45 [facility] [address] 04/06 18:11 Order name: Labs collected and sent; Complete Time: 18:45 [facility] [address] 04/06 18:11 Order name: O2 Per Protocol; Complete Time: 18:45 [facility] [address] 04/06 18:11 Order name: O2 Sat Monitoring; Complete Time: 18:45 [facility] [address] 04/06 19:12 Order name: Urine Dipstick-Ancillary (obtain specimen); Complete Time: 19:50 [facility] 04/06 19:12 Order name: Carty; Complete Time: 19:50 [facility] 04/06 19:49 Order name: CONS Physician Consult [facility] Administered Medications: 19:40 Drug: Lasix 40 mg Route: IVP; Site: right wrist; lp1 21:11 Follow up: Response: No adverse reaction lp1 Point of Care Testing: Blood Glucose: 21:10 Blood Glucose: 117 mg/dL; lp1 Ranges: Critical Glucose Levels:Adult <50 mg/dl or >400 mg/dl <40 mg/dl or >180 mg/dl Disposition: 04/06/18 19:44 Hospitalization ordered by Kendrick Stevens for Inpatient Admission. Preliminary diagnosis are Dyspnea, Unspecified combined systolic (congestive) and diastolic (congestive) heart failure, Type 2 diabetes mellitus, Unspecified kidney failure. - Bed requested for Telemetry/MedSurg (Inpatient). - Status is Inpatient Admission. lp1 - Condition is Stable. - Problem is new. - Symptoms have improved. UTI on Admission? No Signatures: Dispatcher [employer] [facility] Antonio Kim MD MD cha Rittger, Kevin, MD MD kdr Pena, Laura, RN RN lp1 Luiza Norton RN RN Verito Chavez RN RN Marcie Garcia, PAULA RN tw2 Calvin Gill RN RN jl7 Corrections: (The following items were deleted from the chart) 19:46 19:44 Hospitalization Ordered by Kendrick Stevens MD for Inpatient Admission. Preliminary abhi diagnosis is Dyspnea; Unspecified combined systolic (congestive) and diastolic (congestive) heart failure. Bed requested for Telemetry/MedSurg (Inpatient). Status is Inpatient Admission. Condition is Stable. Problem is new. Symptoms have improved. UTI on Admission? No. abhi 19:51 19:46 04/06/2018 19:44 Hospitalization Ordered by Kendrick Stevens MD for Inpatient abhi Admission. Preliminary diagnosis is Dyspnea; Unspecified combined systolic (congestive) and diastolic (congestive) heart failure; Type 2 diabetes mellitus. Bed requested for Telemetry/MedSurg (Inpatient). Status is Inpatient Admission. Condition is Stable. Problem is new. Symptoms have improved. UTI on Admission? No. abhi 20:12 19:51 04/06/2018 19:44 Hospitalization Ordered by Kendrick Stevens MD for Inpatient cg Admission. Preliminary diagnosis is Dyspnea; Unspecified combined systolic (congestive) and diastolic (congestive) heart failure; Type 2 diabetes mellitus; Unspecified kidney failure. Bed requested for Telemetry/MedSurg (Inpatient). Status is Inpatient Admission. Condition is Stable. Problem is new. Symptoms have improved. UTI on Admission? No. abhi 21:14 20:12 04/06/2018 19:44 Hospitalization Ordered by Kendrick Stevens MD for Inpatient lp1 Admission. Preliminary diagnosis is Dyspnea; Unspecified combined systolic (congestive) and diastolic (congestive) heart failure; Type 2 diabetes mellitus; Unspecified kidney failure. Bed requested for Telemetry/MedSurg (Inpatient). Status is Inpatient Admission. Condition is Stable. Problem is new. Symptoms have improved. UTI on Admission? No. cg
--- NOTE | 2018-04-06 19:51 | ER ---
Nurse's Notes [facility] Name: Christa Ayala Age: 72 yrs Sex: Female : 1945 Arrival Date: 04/06/2018 Time: 18:01 Bed 6 Private MD: Diagnosis: Dyspnea;Unspecified combined systolic (congestive) and diastolic (congestive) heart failure;Type 2 diabetes mellitus;Unspecified kidney failure Presentation: 04/06 18:02 Presenting complaint: EMS states: pt from home that called with difficult breathing tw2 that started earlier today, pt has hx of CHF, COPD, uses 3L NC o2 at home, noted LE edema as well. Transition of care: patient was not received from another setting of care. Onset of symptoms was April 06, 2018. Risk Assessment: Do you want to hurt yourself or someone else? Patient reports no desire to harm self or others. Initial Sepsis Screen: Does the patient meet any 2 criteria? No. Patient's initial sepsis screen is negative. Does the patient have a suspected source of infection? No. Patient's initial sepsis screen is negative. Care prior to arrival: None. 18:02 Method Of Arrival: EMS: [facility] tw2 18:02 Acuity: SONYA 3 tw2 Triage Assessment: 18:01 General: Appears in no apparent distress. Respiratory: Onset: The symptoms/episode tw2 began/occurred this morning, the patient has mild shortness of breath. Historical: - Allergies: 18:09 Codeine; jl7 18:09 Iodine; jl7 - Home Meds: 19:21 aspirin 81 mg Oral TbEC 1 tab once daily [Active]; escitalopram oxalate 10 mg oral tab hb 1 tab once daily [Active]; Entresto 24-26 mg oral tab twice a day [Active]; atorvastatin 40 mg oral tab 1 tab nightly [Active]; Plavix 75 mg Oral tab 1 tab once daily [Active]; Lasix 40 mg Oral tab 1 tab 2 times per day [Active]; glimepiride 1 mg Oral tab 1 tab once daily [Active]; metoprolol tartrate 25 mg Oral tab 1 tab 2 times per day [Active]; pantoprazole 40 mg oral TbEC 1 tab once daily [Active]; Trellegy 100 mg/62.5mg/25mg daily [Active]; ProAir HFA 90 mcg/actuation inhalation HFAA 1 puff as needed [Active]; - PMHx: 18:09 CHF; COPD; Diabetes - NIDDM; Emphysema; enlarged aorta; Myocardial infarction; jl7 Hypertension; - Immunization history:: Adult Immunizations. - Ebola Screening: : No symptoms or risks identified at this time. - Social history:: Smoking status: . - Family history:: not pertinent. Screenin:46 Abuse screen: Denies threats or abuse. Nutritional screening: No deficits noted. tw2 Tuberculosis screening: No symptoms or risk factors identified. Fall Risk None identified. Assessment: 18:40 General: Appears in no apparent distress. Behavior is calm, cooperative, appropriate tw2 for age. Pain: Denies pain. Neuro: Level of Consciousness is awake, alert, obeys commands, Oriented to person, place, time, situation. Cardiovascular: Rhythm is sinus rhythm. Cardiovascular: Heart tones S1 S2 Patient's skin is warm and dry. Edema is 2+ to left midcalf, left ankle, left foot, right midcalf, right ankle and right foot. Respiratory: Reports shortness of breath at rest on exertion since this morning Airway is patent Respiratory effort is even, unlabored, Respiratory pattern is regular, symmetrical, Breath sounds are clear bilaterally. GI: No signs and/or symptoms were reported involving the gastrointestinal system. Abdomen is flat, Bowel sounds present X 4 quads. : No signs and/or symptoms were reported regarding the genitourinary system. EENT: No signs and/or symptoms were reported regarding the EENT system. Derm: No signs and/or symptoms reported regarding the dermatologic system. Musculoskeletal: Range of motion: intact in all extremities. 19:30 General: Appears in no apparent distress. Neuro: Level of Consciousness is awake, lp1 alert, obeys commands, Oriented to person, place, situation. Cardiovascular: Patient's skin is warm and dry. Edema is 2+ to left midcalf, left ankle, left foot, left toes, right midcalf, right ankle, right foot and right toes. Respiratory: Reports shortness of breath Respiratory effort is even, Respiratory pattern is regular, Breath sounds are clear bilaterally. Derm: Skin is intact, Skin is dry, Skin is normal. 20:15 Reassessment: Attempted to call report; nurse will call back. lp1 Vital Signs: 18:12 BP 138 / 92; Pulse 89; Resp 15; Temp 98.4; Pulse Ox 98% on 3 lpm NC; tw2 19:00 BP 136 / 102; Pulse 97; Resp 21; Pulse Ox 96% on 3 lpm NC; lp1 19:40 BP 145 / 103; Pulse 95; Resp 16; Pulse Ox 94% on 3 lpm NC; lp1 20:20 BP 148 / 107; Pulse 100; Resp 20; Pulse Ox 97% on 3 lpm NC; lp1 20:50 BP 148 / 102; Pulse 98; Resp 19; Pulse Ox 95% on 3 lpm NC; lp1 ED Course: 18:01 Patient arrived in ED. tw2 18:01 Bed in low position. Call light in reach. Side rails up X2. cafeteria monitor on. Pulse tw2 ox on. NIBP on. Warm blanket given. 18:10 Molina Dill MD is Attending Physician. kdr 18:12 Triage completed. tw2 18:12 Arm band placed on. tw2 18:28 Missed attempt(s): 22 gauge in right antecubital area. Bleeding controlled, band aid dh3 applied, catheter tip intact. 18:40 Marcie Garcia RN is Primary Nurse. tw2 18:40 Initial lab(s) drawn, by ks, sent to lab. Inserted saline lock: 22 gauge in right dh3 forearm, using aseptic technique. Blood collected. 18:54 Attending Physician role handed off by Molina Dill MD abhi 18:54 Antonio Kim MD is Attending Physician. abhi 19:00 Report given to PAULA Mendez. tw2 19:05 Primary Nurse role handed off by Marcie Garcia RN tw2 19:11 XRAY Chest (1 view) In Process Unspecified. EDMS 19:18 Yesi Lemon, PAULA is Primary Nurse. lp1 19:30 Carty cath inserted, using sterile technique, 16 Fr., by ks, balloon inflated, to lp1 gravity drainage, urine specimen collected. 19:44 Kendrick Stevens MD is Hospitalizing Provider. abhi 19:53 No provider procedures requiring assistance completed. lp1 19:54 Patient admitted, IV remains in place. lp1 Administered Medications: 19:40 Drug: Lasix 40 mg Route: IVP; Site: right wrist; lp1 21:11 Follow up: Response: No adverse reaction lp1 Point of Care Testing: Blood Glucose: 21:10 Blood Glucose: 117 mg/dL; lp1 Ranges: Output: 20:00 Urine: 100ml (Carty); Total: 100ml. lp1 Outcome: 19:44 Decision to Hospitalize by Provider. abhi 19:54 Condition: stable lp1 19:54 Instructed on the need for admit. 20:49 Admitted to Tele accompanied by tech, via stretcher, room 424, with oxygen, with chart, lp1 Report called to PAULA Harper 21:14 Patient left the ED. lp1 Signatures: Dispatcher [employer] [facility] Antonio Kim MD MD cha Rittger, Kevin, MD MD kdr Pena, Laura, RN RN lp1 Verito Chavez RN Marcie Dillard RN RN tw2 Calvin Gill RN RN jl7 Katie Carlos 3
[2018-04-06 21:08] LABS: Urine Blood NEGATIVE (NEG); Urine Glucose NEGATIVE (NEG); Urine Protein 1+ (NEG); Urine Specific Gravity 1.015 (1.005-1.030)
[2018-04-06] MEDS ORDERED: IPRATROPIUM BROM 0.5MG/2.5ML NEB PRN (21:31)
[2018-04-06] MEDS ORDERED: ONDANSETRON 4 MG/2 ML VIAL IV PRN (21:31)
[2018-04-06] MEDS ORDERED: ALBUTEROL 2.5 MG/3 ML NEB SOL NEB PRN (21:31)
[2018-04-06] MEDS ORDERED: ACETAMINOPHEN 500 MG TAB PO PRN (21:31)
[2018-04-07 01:33] VITALS: BMI 24.1
[2018-04-07 06:01] LABS: Absolute Lymphocytes (CBC) 0.6 K/uL (0.7-4.9); Absolute Monocytes 0.4 K/uL (0.1-1.3); Absolute Neutrophil 4.9 K/uL (1.8-8.0); Basophils % 1.3 % (0-1.3); Eosinophils % 0.1 % (0-4.4); Hematocrit 33.6 % (36.0-45.0); Lymphocytes % 10.6 % (15.3-44.8); MPV 8.5 fL (7.6-11.3); Monocytes % 6.1 % (3.3-12.3); RBC Red Blood Cell Count 3.49 M/uL (3.86-4.86)
[2018-04-07 06:45] LABS: Potassium 4.2 mmol/L (3.5-5.1)
--- NOTE | 2018-04-07 07:47 | EKG ---
Test Date: 2018-04-06 Test Time: 19:23:49 Signal Mechanic: AG3 MEASUREMENT RESULTS: Intervals: Rate: 93 NH: 166 QRSD: 100 QT: 396 QTc: 492 [place]: P: 47 NH: 166 QRS: -15 T: 55 INTERPRETIVE STATEMENTS: Normal sinus rhythm Inferior infarct, age undetermined Abnormal ECG Compared to ECG 02/11/2018 06:48:36 No significant changes Electronically Signed On 04-07-18 07:45:51 HOME WORKER by Vitaliy Hook
[2018-04-07] MEDS: FUROSEMIDE 20 MG/ 2ML VIAL IV SCH ×2 (09:00→17:13)
--- NOTE | 2018-04-07 09:05 | RAD REPORT ---
EXAM DESCRIPTION: Angy Single View04/07/2018 6:36 am CLINICAL HISTORY: Chest pain COMPARISON: April FINDINGS: Small right pleural effusion persists. Mild bibasilar atelectasis is suspected. Heart remains markedly enlarged
--- NOTE | 2018-04-07 13:53 | CON ---
Date of Consultation: 04/07/[address] Stevens's service on 04/06/2018. I saw the patient on 04/07/2018. Reason For Consultation: Congestive heart failure. History Of Present Illness: Ms. Ayala is a 72-year-old black woman. She is known to us from off ce visits and admissions. She has a history of chronic systolic congestive heart failure, COPD, gwendolyn roesophageal reflux disease, diabetes, aortic abdominal aneurysm, coronary artery disease and hyperte nsion. She also has significant renal insufficiency, stage 4. Her creatinine today is 2.24. She ca me in with shortness of breath and was found to be in congestive heart failure. Denied any chest geo n or syncope or palpitations. Allergies: SHE IS ALLERGIC TO IODINE AND CODEINE. Review of Systems: Negative. Social History: Negative. Family History: Positive for diabetes and hypertension. Medications: At home include Entresto, Protonix, aspirin, Lipitor, Plavix, inhalers, metoprolol, Las ix, and glimepiride. Physical Examination: General: She was in no acute distress. She stated that her breathing is much better since she came in after IV Lasix. Vital Signs: Stable. She was afebrile. She was in a sinus rhythm. HEENT: Negative. Neck: Supple without any bruit, lymphadenopathy, JVD, or thyromegaly. Chest: Revealed rales at both bases. Cardiac: Revealed a regular rhythm and rate with an S3 gallop and a 2/6 systolic ejection murmur at the third right intercostal space that did not radiate. Abdomen: Obese, but benign. Extremities: Revealed 1+ edema. Skin: Intact and dry. Neurologic: She seems to be nonfocal. Diagnostic Data: Creatinine of 2.24. [place] BNP was [address]. Last echocardiogram showed an ejection fra ction of 30-35%. Impression And Plan: 1.Acute on chronic exacerbation of systolic congestive heart failure. 2.Chronic obstructive pulmonary disease. 3.Diabetes. 4.Gastroesophageal reflux disease. 5.Abdominal aortic aneurysm that is stable. 6.History of coronary artery disease. 7.History of hypertension. I think we need to increase her IV Lasix to 40 mg b.i.d. I think we nee d to increase her metoprolol to 225 mg b.i.d. I feel uncomfortable going up on the Entresto dose wit h her creatinine of 2.24. Ideally, Ms. Ayala should really have a heart catheterization and be co nsidered for a defibrillator, but I think her renal function would make it very uncomfortable for us to do so at this point. If her creatinine improves, certainly if it gets down below 2, we should giv e that serious consideration. I will discuss the case further with Dr. Stevens. Forty-five minutes were spent in the care of Ms. Ayala. The case was discussed with the patient a nd the nurses and Dr. Stevens. PHILL/MODL Voice ID: [id number] Report ID: [id number]
--- NOTE | 2018-04-07 15:26 | PN ---
Date of Progress Note: 04/07/2018 The patient has received a number of doses of IV Lasix, and in fact today she is sitting in the chair , feeling considerably better, though still have some exertional dyspnea and anorectic. If she tanja nues on this track, we will restart her medication and possibly could be discharged in a.m. HR/MODL Voice ID: [id number] Report ID: [id number]
[2018-04-07] MEDS: ACETAMINOPHEN 325 MG TABLET PO SCH ×2 (17:14→23:56)
[2018-04-07] MEDS ORDERED: D50W 25 GM/50 ML SYRINGE IV PRN (17:43)
[2018-04-07] MEDS ORDERED: GLUCAGON 1 MG/VIAL IM PRN (17:43)
[2018-04-07] MEDS: INSULIN -REGULAR HUMAN 50 UNIT/0.5 ML ML SQ SCH (21:00)
[2018-04-07] MEDS: HOME MED 1 EA UNK (Fluticasone/Umeclidin/Vilanter [Trelegy Ellipta 100-62.5-25] 1 PUFF) IH SCH (21:00)
[2018-04-07] MEDS: METOPROLOL XL 25 MG TAB PO SCH (21:08)
[2018-04-07] MEDS: ATORVASTATIN 40 MG TAB PO SCH (21:08)
[2018-04-07] MEDS: SACUBITRIL/VALSARTAN 24/26 MG TAB PO SCH (21:08)
[2018-04-08] MEDS: ACETAMINOPHEN 325 MG TABLET PO SCH ×3 (05:48→17:14)
[2018-04-08 05:53] LABS: Potassium 3.8 mmol/L (3.5-5.1)
[2018-04-08] MEDS: INSULIN -REGULAR HUMAN 50 UNIT/0.5 ML ML SQ SCH ×4 (07:30→21:00)
[2018-04-08] MEDS: HOME MED 1 EA UNK (Fluticasone/Umeclidin/Vilanter [Trelegy Ellipta 100-62.5-25] 1 PUFF) IH SCH (09:00)
[2018-04-08] MEDS: GLIMEPIRIDE 2 MG TABLET PO SCH (09:00)
[2018-04-08] MEDS: ASPIRIN 81 MG CHEWABLE TABLET PO SCH (09:19)
[2018-04-08] MEDS: FUROSEMIDE 20 MG/ 2ML VIAL IV SCH ×2 (09:20→17:13)
[2018-04-08] MEDS: SACUBITRIL/VALSARTAN 24/26 MG TAB PO SCH ×2 (09:21→21:53)
[2018-04-08] MEDS: PANTOPRAZOLE 40MG TABLET PO SCH (09:21)
[2018-04-08] MEDS: CLOPIDOGREL 75 MG TABLET PO SCH (09:21)
[2018-04-08] MEDS: METOPROLOL XL 25 MG TAB PO SCH ×2 (09:23→21:52)
--- NOTE | 2018-04-08 13:59 | EKG ---
Test Date: 2018-04-07 Test Time: 07:51:13 Whip Operator: HAMMAD MEASUREMENT RESULTS: Intervals: Rate: 99 DC: 164 QRSD: 96 QT: 380 QTc: 487 [place]: P: 65 DC: 164 QRS: -16 T: 77 INTERPRETIVE STATEMENTS: Normal sinus rhythm Inferior-posterior infarct, age undetermined T wave abnormality, consider lateral ischemia Abnormal ECG Compared to ECG 04/06/2018 19:23:49 T-wave abnormality now present Possible ischemia now present Myocardial infarct finding still present Electronically Signed On 04-08-18 13:54:42 BOW REPAIRER CUSTOM by Vitaliy Hook
[2018-04-08] MEDS: ATORVASTATIN 40 MG TAB PO SCH (21:53)
[2018-04-08] MEDS: TRELEGY ELLIPTA IH SCH (21:53)
[2018-04-09 05:43] LABS: Absolute Lymphocytes (CBC) 0.9 K/uL (0.7-4.9); Absolute Monocytes 0.5 K/uL (0.1-1.3); Absolute Neutrophil 5.3 K/uL (1.8-8.0); Basophils % 1.1 % (0-1.3); Eosinophils % 0.6 % (0-4.4); Hematocrit 33.3 % (36.0-45.0); Lymphocytes % 13.2 % (15.3-44.8); MPV 8.4 fL (7.6-11.3); Monocytes % 6.9 % (3.3-12.3); RBC Red Blood Cell Count 3.45 M/uL (3.86-4.86)
[2018-04-09] MEDS: ACETAMINOPHEN 325 MG TABLET PO SCH ×4 (05:47→17:26)
[2018-04-09] MEDS: INSULIN -REGULAR HUMAN 50 UNIT/0.5 ML ML SQ SCH ×4 (07:30→21:00)
[2018-04-09 07:36] LABS: Potassium 3.9 mmol/L (3.5-5.1)
[2018-04-09] MEDS ORDERED: POTASSIUM CL SA 10 MEQ TAB PO ONE (08:00)
[2018-04-09] MEDS: SACUBITRIL/VALSARTAN 24/26 MG TAB PO SCH (09:18)
[2018-04-09] MEDS: METOPROLOL XL 25 MG TAB PO SCH ×2 (09:19→22:38)
[2018-04-09] MEDS: GLIMEPIRIDE 2 MG TABLET PO SCH (09:20)
[2018-04-09] MEDS: ASPIRIN 81 MG CHEWABLE TABLET PO SCH (09:20)
[2018-04-09] MEDS: FUROSEMIDE 20 MG/ 2ML VIAL IV SCH (09:20)
[2018-04-09] MEDS: PANTOPRAZOLE 40MG TABLET PO SCH (09:20)
[2018-04-09] MEDS: CLOPIDOGREL 75 MG TABLET PO SCH (09:20)
[2018-04-09] MEDS: TRELEGY ELLIPTA IH SCH ×2 (09:21→21:00)
--- NOTE | 2018-04-09 13:54 | P.CNS ---
Date of Consult: 04/09/18 Reason for Consult: CKD Chief Complaint: SOB History of Present Illness: A 72 Y/o woman with PMhx of congestive heart failure EF ~30% , COPD, GERD , DM II dx ~4yrs ago no retinopayhy or neuropathy , aortic aneurysm S/P repair , coronary artery disease S/p PCI in 07/2017 and hypertension. and CKD 4 Pt presented with SOB and Le edema no chest pain, palpitation ,nausea , vomiting or diarrhea Cr ~2.2 at baseline in September had Ny with Cr up to ~7.0, but didnt require HD Allergies iodine Allergy (Mild, Verified 04/23/17 10:11) Itching/Hives/Rash codeine Adverse Reaction (Intermediate, Verified 04/23/17 10:11) Hives/Rash Home Medications: Acetaminophen [Tylenol] 650 mg PO Q6HR 04/06/18 Aspirin Chewable [Aspirin Chewable*] 81 mg PO DAILY 04/06/18 Atorvastatin Calcium [Lipitor] 40 mg PO BEDTIME 04/06/18 Clopidogrel Bisulfate [Plavix] 75 mg PO DAILY 04/06/18 Fluticasone/Umeclidin/Vilanter [Trelegy Ellipta 100-62.5-25] 1 puff IH BID 04/06 Furosemide [Lasix] 40 mg PO BIDL 04/06/18 Glimepiride 1 mg PO DAILY 04/06/18 Metoprolol Succinate [Toprol Xl] 12.5 mg PO BID 04/06/18 Pantoprazole Sodium 40 mg PO DAILY 04/06/18 Sacubitril/Valsartan [Entresto 24 mg-26 mg Tablet] 1 tab PO BID 04/06/18 - Past Medical/Surgical History Diabetic: Yes -: HTN -: Hyperlipidemia -: Diabetes mellitus type 2 [id number] -: COPD, oxygen-dependent -: CAD with prior stent -: Systolic congestive heart failure, ejection fraction 30% -: Thoracic aortic aneurysm -: Chronic kidney disease -: Anemia of chronic disease -: GERD -: Former tobacco use -: Hiatal hernia -: Aortic aneurysm -: 2 cardiac stents (2010) Psychosocial/ Personal History: Patient is - Family History Father Medical History: Heart disease Mother Medical History: Diabetes Sister Medical History: Diabetes - Social History Smoking Status: Unknown if ever smoked Alcohol use: No CD- Drugs: No Caffeine use: Yes Place of Residence: Home Physical Examination Temp Pulse Resp BP Pulse Ox 97.8 F 95 H 20 146/102 H 94 04/09/18 12:00 04/09/18 12:00 04/09/18 12:00 04/09/18 12:00 04/09/18 12:00 General: Oriented x3, Mild distress, Moderate distress HEENT: Atraumatic Neck: Supple, Without JVD or thyroid abnormality Respiratory: Crackles/rales Cardiovascular: Regular rate/rhythm, Normal S1 S2, No rubs, No murmurs, Edema - Problems (1) Chronic renal disease, stage III Onset Date: 02/13/18 Current Visit: No Status: Chronic (2) Systolic congestive heart failure Onset Date: 02/13/18 Current Visit: No Status: Acute (3) COPD (chronic obstructive pulmonary disease) Onset Date: 10/03/17 Current Visit: No Status: Chronic Qualifiers: (4) Diabetes mellitus type 2 Onset Date: 04/25/17 Current Visit: No Status: Chronic Conclusions/Impression: A 72 Y/o woman with PMhx of congestive heart failure EF ~30% , COPD, GERD , DM II dx ~4yrs ago no retinopayhy or neuropathy , aortic aneurysm S/P repair , coronary artery disease S/p PCI in 07/2017 and hypertension. and CKD 4 Pt presented with SOB and Le edema no chest pain, palpitation ,nausea , vomiting or diarrhea Cr ~2.2 at baseline in September had Ny with Cr up to ~7.0, but didnt require HD CKD IV Cr stable will order urine prot and Cr Renal US renal diet renal dose meds previous W/u hep panel -ve will order SPEP, UPEP will dc entresto will increase lasis pt is at moderate to high risk for contrast nephropathy if required cardiac cath, then need to start NS 50ml/hr and cont lasix with mucomyst 1200mg bid Chf exacerbation will cont lasix DM as per primary
[2018-04-09] MEDS: FUROSEMIDE 40 MG/4 ML VIAL IV SCH (17:25)
--- NOTE | 2018-04-09 22:19 | PN ---
Date of Progress Note: 04/08/2018 Ms. Ayala was admitted on 04/07/2018 and seen for congestive heart failure exacerbation that is ac algaaciq on chronic systolic congestive heart failure. She has improved on Lasix. She is not really havi ng much in the way of shortness of breath, definitely does not have any edema, has remained in a sinu s rhythm. I think we need to continue her present regimen. She can go home on a higher dose of Lasi x p.o. I had suggested a catheterization on Ms. Ayala. She may be a candidate for defibrillator. She will think about that and let me know. We would like to see her in the office as an outpatient . PHILL/CHRISTY Voice ID: [id number] Report ID: [id number]
[2018-04-09] MEDS: ATORVASTATIN 40 MG TAB PO SCH (22:39)
--- NOTE | 2018-04-10 04:08 | PN ---
Date of Progress Note: 04/08/2018 The patient does not seem quite as well today. She is much more lethargic and not been up and anorex ia is increased. The creatinine has minimal change as well as a BNP and therefore I feel she should stay at least another 24 hours and see what this time interval brings as far as her ability to handle her situation at home. She was seen by Cardiology who suggested the need for a catheterization, how ever, with her creatinine and general status at this time it has been put on hold. HR/MODL Voice ID: [id number] Report ID: [id number]
--- NOTE | 2018-04-10 04:23 | HP ---
Date of Admission: 04/06/2018 Entrance Complaint: Shortness of breath. History Of Present Illness: The patient presented to the emergency room by ambulance stating she bec reno increasingly dyspneic. She had set up an appointment for my office actually this week and stated she was doing fairly well, basically status quo and then noticed some gradually increasing dyspnea t o where it became markedly difficult for her to breathe. The patient has had similar episodes in the past, long history of cardiovascular disease and cardiomegaly requiring stents and also aortic aneur ysm procedures. The patient states she has not had any respiratory infections or flu-like symptoms o laurita the past short time and has felt it was rather sudden onset. Past History: As above. Also, the patient has a long history of NIDDM in variable control, the same as her hypertension. Social History: Present nonsmoker and no alcohol. Family History: Noncontributory. Physical Examination: General: The patient is an obviously dyspneic, elderly female. Vital Signs: Stable vital signs other than respiratory rate which is 28. Head and Neck: Normocephalic. Pupils are equal and reactive to light and accommodation. Fundi nega tive. Trachea midline. Thyroid not palpable. ENT: Negative. Chest: Bilateral rhonchi and rales. Slight use of accessory muscles to breathe. Cardiovascular: PMI midclavicular line. Heart sounds normal. Peripheral pulses present and equal gilda aterally. Abdomen: No organomegaly. Bowel sounds present. Extremities: +2 pitting edema bilaterally. Good tone and movement bilaterally. Reflexes physiologi c. Rectal/Pelvic: Deferred. Impression: Acute episode of congestive heart failure with underlying chronic congestive heart failu re, peripheral vascular disease, coronary artery disease, noninsulin-dependent diabetes mellitus with fair control, hypertension with fair control. Plan: The patient will be admitted, placed on IV diuresis as her BNP was over 50,000. Creatinine wa s also elevated. She was seen by Cardiology. Further testing will be made at their determination. HR/MODL Voice ID: [id number]
[2018-04-10] MEDS: ACETAMINOPHEN 325 MG TABLET PO SCH ×4 (05:51→18:00)
--- NOTE | 2018-04-10 06:59 | PN ---
Date of Progress Note: 04/09/2018 The patient is still having significant dyspnea with minimal exertion at bed rest. She seems stable. Her creatinine and BMP have not changed significantly. Probability of being a cardiac problem othe r than failure is significant. Consultation was then obtained with Nephrology to see about clearing her for a catheterization as suggested by her funnel coater. In view of these factors, we will contin ue to monitor her, continue her treatment, and depending on the results of the x-rays tomorrow and he r blood work, possibly have her stabilized enough for a procedure. HR/MODL Voice ID: [id number] Report ID: [id number]
[2018-04-10] MEDS: INSULIN -REGULAR HUMAN 50 UNIT/0.5 ML ML SQ SCH ×3 (07:30→16:30)
[2018-04-10] MEDS: GLIMEPIRIDE 2 MG TABLET PO SCH (08:27)
--- NOTE | 2018-04-10 09:34 | RAD REPORT ---
EXAM DESCRIPTION: US - Renal Ultrasound-Complete - 04/10/2018 8:01 am CLINICAL HISTORY: Chronic renal disease FINDINGS: The right kidney measures 10 cm with an increased echotexture. 2.2 centimeter right renal cyst. 5 millimeter nonobstructing renal calculus The left kidney measures 9 cm with an increased echotexture. Hydronephrosis is not seen. No gross abnormality of bladder is seen 3.6 centimeter echogenic mass within the spleen. Abdominal aortic aneurysm with an AP diameter of the proximal 6 centimeters Small amount of ascites is seen IMPRESSION: Increased renal echotexture consistent with parenchymal disease Nonobstructing right renal calculus 3.[address] scan with IV contrast and delayed images recommended Abdominal aortic aneurysm. This also can be evaluated on the CT scan
[2018-04-10] MEDS: TRELEGY ELLIPTA IH SCH (10:17)
[2018-04-10] MEDS: FUROSEMIDE 40 MG/4 ML VIAL IV SCH ×2 (10:18→18:30)
[2018-04-10] MEDS: METOPROLOL XL 25 MG TAB PO SCH (10:19)
[2018-04-10] MEDS: CLOPIDOGREL 75 MG TABLET PO SCH (10:19)
[2018-04-10] MEDS: ASPIRIN 81 MG CHEWABLE TABLET PO SCH (10:20)
[2018-04-10] MEDS: PANTOPRAZOLE 40MG TABLET PO SCH (10:20)
[2018-04-10 17:24] VITALS: O2SAT 94
[2018-04-10 17:54] VITALS: BP 136/92; TEMP 97.2
--- NOTE | 2018-04-10 23:39 | PN ---
Date of Progress Note: 04/10/2018 Subjective: The patient states she is feeling somewhat better. She is breathing much better, especi ally with activity, although she is still anorectic. Assessment And Plan: The patient will be discharged. Continue on her usual medication with the junaid tion of 40 mg of Lasix on a p.r.n. basis for shortness of breath and fluid retention. An MRI ___ will also be scheduled on an outpatient basis. She is to see me in 1 week. HR/MODL Voice ID: [id number] Report ID: [id number]
--- NOTE | 2018-04-11 14:55 | PN ---
Date of Progress Note: 04/10/2018 Chief Complaint: Acute on chronic kidney injury, cardiorenal syndrome. History Of Present Illness: Patient has multiple medical problems including history of diabetes mellitus type 2, coronary artery disease status post stent and systolic congestive heart failure with ejection fraction of 30%. Patient was found to have elevated BUN and creatinine. She has chronic kidney disease stage 3. She has systolic congestive heart failure and she was treated with Lasix for CHF exacerbation and cardiorenal syndrome. Renal ultrasound was ordered to rule out hydronephrosis. The patient previously developed acute kidney injury and creatinine was up to 7.0. She did not require dialysis. Back in September 2017, she was treated for acute kidney injury. Baseline creatinine level in this particular patient is ranging from 2.0 to 2.2. Patient has underlying chronic kidney disease stage 4 due to diabetes, hypertension, and chronic cardiorenal syndrome. The patient is feeling better. Denies fever or chills. Denies PND or orthopnea. She remains on O2 nasal cannula. Creatinine level has been fluctuating from 2.14 to 2.27 during this admission. Patient has nonoliguric urine output and she has a chronic kidney stage 3 advancing to stage 4. Back in December 2017, creatinine level was 1.4 and 1.8. Review of Systems: Denies PND, orthopnea. Physical Examination: Lungs: Clear to auscultation bilaterally. Heart: S1, S2. Abdomen: Soft, benign. Extremities: Slight edema. Laboratory Data: Blood work: Sodium 142, potassium 4.0, chloride 104, CO2 of 29, BUN 42, creatinine 2.18, calcium 8.8. Impression And Plan: Chronic kidney disease stage 3, advancing to stage 4. Renal function is stabilizing and plateauing. Patient has acute on chronic kidney injury with cardiorenal syndrome. Renal ultrasound did not show hydronephrosis. There is increased echotexture consistent with parenchymal kidney disease. The patient will follow up with Nephrology outpatient. Continue Lasix and low-sodium diet for cardiorenal syndrome and to treat acute kidney injury. Renal ultrasound showed 3.6 cm splenic mass and this needs to be worked out outpatient by primary team. I spent total 36 min including 25 min to coordinate care plan. NERIS/CHRISTY Voice ID: [id number] Report ID: [id number]
== END 2018-04-10 21:01 | disposition home or self-care (01) ==
LOC: ER 18:00 → ERHOLD 20:19 → INTOOBSV 20:19 → 4TH 20:54 → OBSVTOIN 04-10 14:11 → INTOOBSV 04-10 14:11
PROVIDERS: ADMIT Family Medicine; ATTEND Family Medicine
DX: I13.0 Hypertensive heart and chronic kidney disease with heart failure and stage 1 through stage 4 chronic kidney disease, or unspecified chronic kidney disease (principal); I50.23 Acute on chronic systolic (congestive) heart failure; N18.4 Chronic kidney disease, stage 4 (severe); E11.22 Type 2 diabetes mellitus with diabetic chronic kidney disease; I25.10 Atherosclerotic heart disease of native coronary artery without angina pectoris; J44.9 Chronic obstructive pulmonary disease, unspecified; Z95.5 Presence of coronary angioplasty implant and graft
CPT/HCPCS: 36415 ×3; 51702; 71045 ×2; 76770; 80048 ×5; 80076; 81003; 82962 ×17; 83735; 83880 ×4; 84484 ×3; 85025 ×3; 85610; 86334; 87086; 87088; 93005 ×2; 96374; 97116 ×2; 97163; 97530; 99285; G0378 ×2; J1940 ×9; J2405

== ENCOUNTER 2018-06-19 05:20 | Inpatient (IN) | payer OTHER ==
--- OUTSIDE RECORDS SUMMARY | 2018-06-19 05:34 | XMS REPORT ---
:1945 [facility] [place] [address] Care Team Providers Name Role Phone BRITTNEY [...] Range Comments B-TYPE NATRIURETIC PEPTIDE (BEAKER) (test aazw=575) 867 pg/mL 0-100 BASIC METABOLIC [id number] 15:05:00 Test Item Value Reference Range Comments SODIUM (BEAKER) (test 140 meq/L 136-145 zdhi=604) POTASSIUM (BEAKER) (test 4.6 meq/L 3.5-5.1 qkov=107) CHLORIDE (BEAKER) (test 98 meq/L 98-107 rshy=014) CO2 (BEAKER) (test 32 meq/L 22-29 jkcd=582) BLOOD UREA NITROGEN 30 mg/dL 7-21 (BEAKER) (test sryb=381) CREATININE (BEAKER) (test 2.58 mg/dL 0.57-1.25 rdwh=983) GLUCOSE RANDOM (BEAKER) 105 mg/dL 70-105 (test wqwl=184) CALCIUM (BEAKER) (test 10.3 mg/dL 8.4-10.2 ayxg=508) EGFR (BEAKER) (test 22 mL/min/1.73 sq m ESTIMATED GFR IS NOT xlko=4715) ACCURATE CREATININE CLEARANCE IN PREDICTING GLOMERULAR FILTRATION RATE. ESTIMATED GFR IS NOT APPLICABLE FOR DIALYSIS PATIENTS. [id number] 15:02:00 Test Item Value Reference Range Comments MAGNESIUM (BEAKER) (test elgr=179) 2.0 mg/dL 1.6-2.6 POCT-GLUCOSE [id number] 12:40:00 Test Item Value Reference Range Comments POC-GLUCOSE METER (BEAKER) 225 mg/dL 70-110 TESTED AT [address] (test sqty=0270) [place] [id number] POCT-GLUCOSE [id number] 08:32:00 Test Item Value Reference Range Comments POC-GLUCOSE METER (BEAKER) 148 mg/dL 70-110 TESTED AT [address] (test viax=7960) [place] [id number] BASIC METABOLIC [id number] 05:56:00 Test Item Value Reference Range Comments SODIUM (BEAKER) (test 138 meq/L 136-145 qnom=306) POTASSIUM (BEAKER) (test 4.0 meq/L 3.5-5.1 ohwo=492) CHLORIDE (BEAKER) (test 98 meq/L 98-107 adjw=521) CO2 (BEAKER) (test 29 meq/L 22-29 dxyj=555) BLOOD UREA NITROGEN 14 mg/dL 7-21 (BEAKER) (test zlqi=829) CREATININE (BEAKER) (test 1.85 mg/dL 0.57-1.25 maig=258) GLUCOSE RANDOM (BEAKER) 116 mg/dL 70-105 (test vxvy=052) CALCIUM (BEAKER) (test 9.9 mg/dL 8.4-10.2 ixbb=408) EGFR (BEAKER) (test 33 mL/min/1.73 sq m ESTIMATED GFR IS NOT jpow=2803) ACCURATE CREATININE CLEARANCE IN PREDICTING GLOMERULAR FILTRATION RATE. ESTIMATED GFR IS NOT APPLICABLE FOR DIALYSIS PATIENTS. POCT-GLUCOSE [id number] 21:38:00 Test Item Value Reference Range Comments POC-GLUCOSE METER (BEAKER) 162 mg/dL 70-110 TESTED AT [address] (test qnhj=6928) [facility] [address] POCT-GLUCOSE [id number] 17:02:00 Test Item Value Reference Range Comments POC-GLUCOSE METER (BEAKER) 160 mg/dL 70-110 TESTED AT [address] (test zaeo=4074) [place] [id number] POCT-GLUCOSE [id number] 12:33:00 Test Item Value Reference Range Comments POC-GLUCOSE METER (BEAKER) 163 mg/dL 70-110 TESTED AT [address] (test vrdv=2355) [place] [address] POCT-GLUCOSE [id number] 10:33:00 Test Item Value Reference Range Comments POC-GLUCOSE METER (BEAKER) 175 mg/dL 70-110 TESTED AT [address] (test llcd=8173) [place] [address] [id number] 04:51:00 Test Item Value Reference Range Comments MAGNESIUM (BEAKER) (test 2.0 mg/dL 1.6-2.6 Specimen slightly hemolyzed ypfz=650) BASIC METABOLIC [id number] 04:51:00 Test Item Value Reference Range Comments SODIUM (BEAKER) (test 139 meq/L 136-145 qwrs=804) POTASSIUM (BEAKER) (test 3.8 meq/L 3.5-5.1 Specimen slightly upie=512) hemolyzed CHLORIDE (BEAKER) (test 99 meq/L 98-107 lcnf=665) CO2 (BEAKER) (test 27 meq/L 22-29 pyrf=975) BLOOD UREA NITROGEN 14 mg/dL 7-21 (BEAKER) (test pdln=480) CREATININE (BEAKER) (test 1.61 mg/dL 0.57-1.25 Specimen slightly aipa=606) hemolyzed GLUCOSE RANDOM (BEAKER) 139 mg/dL 70-105 (test scsz=765) CALCIUM (BEAKER) (test 10.0 mg/dL 8.4-10.2 cydo=923) EGFR (BEAKER) (test 38 mL/min/1.73 sq m ESTIMATED GFR IS NOT azmy=6458) ACCURATE CREATININE CLEARANCE IN PREDICTING GLOMERULAR FILTRATION RATE. ESTIMATED GFR IS NOT APPLICABLE FOR DIALYSIS PATIENTS. POCT-GLUCOSE [id number] 21:32:00 Test Item Value Reference Range Comments POC-GLUCOSE METER (BEAKER) 176 mg/dL 70-110 TESTED AT [address] (test yoau=3684) [place] [address] POCT-GLUCOSE [id number] 17:22:00 Test Item Value Reference Range Comments POC-GLUCOSE METER (BEAKER) 232 mg/dL 70-110 TESTED AT [address] (test zsbs=1876) [place] [id number] POCT-GLUCOSE [id number] 12:47:00 Test Item Value Reference Range Comments POC-GLUCOSE METER (BEAKER) 162 mg/dL 70-110 TESTED AT [address] (test pboc=8913) [place] [id number] POCT-GLUCOSE [id number] 08:15:00 Test Item Value Reference Range Comments POC-GLUCOSE METER (BEAKER) 149 mg/dL 70-110 TESTED AT [address] (test xmtp=6510) [place] [address] [id number] 07:05:00 Test Item Value Reference Range Comments MAGNESIUM (BEAKER) (test loyf=253) 1.9 mg/dL 1.6-2.6 BASIC METABOLIC [id number] 07:05:00 Test Item Value Reference Range Comments SODIUM (BEAKER) (test 136 meq/L 136-145 gzfr=673) POTASSIUM (BEAKER) (test 3.8 meq/L 3.5-5.1 xddf=964) CHLORIDE (BEAKER) (test 98 meq/L 98-107 kuwt=109) CO2 (BEAKER) (test 30 meq/L 22-29 aufu=637) BLOOD UREA NITROGEN 14 mg/dL 7-21 (BEAKER) (test fhrl=533) CREATININE (BEAKER) (test 1.56 mg/dL 0.57-1.25 oaqj=566) GLUCOSE RANDOM (BEAKER) 129 mg/dL 70-105 (test ubyb=564) CALCIUM (BEAKER) (test 9.8 mg/dL 8.4-10.2 ajtw=796) EGFR (BEAKER) (test 40 mL/min/1.73 sq m ESTIMATED GFR IS NOT knlr=6437) ACCURATE CREATININE CLEARANCE IN PREDICTING GLOMERULAR FILTRATION RATE. ESTIMATED GFR IS NOT APPLICABLE FOR DIALYSIS PATIENTS. POCT-GLUCOSE [id number] 20:56:00 Test Item Value Reference Range Comments POC-GLUCOSE METER (BEAKER) 112 mg/dL 70-110 TESTED AT [address] (test csrl=9074) [place] [id number] POCT-GLUCOSE [id number] 17:48:00 Test Item Value Reference Range Comments POC-GLUCOSE METER (BEAKER) 213 mg/dL 70-110 TESTED AT [address] (test dirv=5744) [place] [id number] POCT-GLUCOSE [id number] 11:40:00 Test Item Value Reference Range Comments POC-GLUCOSE METER (BEAKER) 208 mg/dL 70-110 TESTED AT [address] (test zzit=0525) [place] [address] POCT-GLUCOSE [id number] 07:43:00 Test Item Value Reference Range Comments POC-GLUCOSE METER (BEAKER) 144 mg/dL 70-110 TESTED AT [address] (test mrms=4698) [place] [address] [id number] 04:52:00 Test Item Value Reference Range Comments MAGNESIUM (BEAKER) (test 2.0 mg/dL 1.6-2.6 Specimen slightly hemolyzed qwzw=245) BASIC METABOLIC [id number] 04:52:00 Test Item Value Reference Range Comments SODIUM (BEAKER) (test 133 meq/L 136-145 wyma=964) POTASSIUM (BEAKER) (test 4.7 meq/L 3.5-5.1 Specimen slightly masz=466) hemolyzed CHLORIDE (BEAKER) (test 97 meq/L 98-107 lwmo=794) CO2 (BEAKER) (test 25 meq/L 22-29 eymf=009) BLOOD UREA NITROGEN 17 mg/dL 7-21 (BEAKER) (test hiow=673) CREATININE (BEAKER) (test 1.63 mg/dL 0.57-1.25 Specimen slightly joqt=633) hemolyzed GLUCOSE RANDOM (BEAKER) 141 mg/dL 70-105 (test yeso=678) CALCIUM (BEAKER) (test 9.8 mg/dL 8.4-10.2 qhuz=152) EGFR (BEAKER) (test 38 mL/min/1.73 sq m ESTIMATED GFR IS NOT mzjc=2557) ACCURATE CREATININE CLEARANCE IN PREDICTING GLOMERULAR FILTRATION RATE. ESTIMATED GFR IS NOT APPLICABLE FOR DIALYSIS PATIENTS. POCT-GLUCOSE [id number] 21:29:00 Test Item Value Reference Range Comments POC-GLUCOSE METER (BEAKER) 198 mg/dL 70-110 TESTED AT [address] (test ykwz=5434) [place] [address] POCT-GLUCOSE [id number] 17:54:00 Test Item Value Reference Range Comments POC-GLUCOSE METER (BEAKER) 176 mg/dL 70-110 TESTED AT [facility] [address] [facility] (test hvxk=8333) [facility] [address] POCT-GLUCOSE [id number] 07:05:00 Test Item Value Reference Range Comments POC-GLUCOSE METER (BEAKER) 137 mg/dL 70-110 TESTED AT [facility] [address] [facility] (test tvpe=3729) [facility] [address] [id number] 06:53:00 Test Item Value Reference Range Comments MAGNESIUM (BEAKER) (test lcrr=262) 2.0 mg/dL 1.6-2.6 BASIC METABOLIC [id number] 05:37:00 Test Item Value Reference Range Comments SODIUM (BEAKER) (test 136 meq/L 136-145 bxqf=224) POTASSIUM (BEAKER) (test 3.7 meq/L 3.5-5.1 oqpq=600) CHLORIDE (BEAKER) (test 97 meq/L 98-107 cbum=212) CO2 (BEAKER) (test 30 meq/L 22-29 zmtl=441) BLOOD UREA NITROGEN 17 mg/dL 7-21 (BEAKER) (test nlzt=650) CREATININE (BEAKER) (test 1.60 mg/dL 0.57-1.25 qkmi=266) GLUCOSE RANDOM (BEAKER) 116 mg/dL 70-105 (test rypv=251) CALCIUM (BEAKER) (test 9.4 mg/dL 8.4-10.2 pabh=208) EGFR (BEAKER) (test 39 mL/min/1.73 sq m ESTIMATED GFR IS NOT dqeq=3019) ACCURATE CREATININE CLEARANCE IN PREDICTING GLOMERULAR FILTRATION RATE. ESTIMATED GFR IS NOT APPLICABLE FOR DIALYSIS PATIENTS. CBC W/PLT COUNT & AUTO [id number] 05:02:00 Test Item Value Reference Range Comments WHITE BLOOD CELL COUNT (BEAKER) (test mabj=364) 8.7 K/ L 3.5-10.5 RED BLOOD CELL COUNT (BEAKER) (test ktmm=247) 2.43 M/ L 3.93-5.22 HEMOGLOBIN (BEAKER) (test anue=059) 7.5 GM/DL 11.2-15.7 HEMATOCRIT (BEAKER) (test fecy=911) 24.1 % 34.1-44.9 MEAN CORPUSCULAR VOLUME (BEAKER) (test zbwc=797) 99.2 fL 79.4-94.8 MEAN CORPUSCULAR HEMOGLOBIN (BEAKER) (test 30.9 pg 25.6-32.2 mlxb=996) MEAN CORPUSCULAR HEMOGLOBIN CONC (BEAKER) (test 31.1 GM/DL 32.2-35.5 yuga=464) RED CELL DISTRIBUTION WIDTH (BEAKER) (test 15.8 % 11.7-14.4 gsas=117) PLATELET COUNT (BEAKER) (test alxy=375) 586 K/CU MM 150-450 MEAN PLATELET VOLUME (BEAKER) (test ejlk=290) 9.5 fL 9.4-12.3 NUCLEATED RED BLOOD CELLS (BEAKER) (test 0 /100 WBC 0-0 ajbh=120) NEUTROPHILS RELATIVE PERCENT (BEAKER) (test 74 % xgra=611) LYMPHOCYTES RELATIVE PERCENT (BEAKER) (test 15 % dtdo=020) MONOCYTES RELATIVE PERCENT (BEAKER) (test 8 % mqvu=405) EOSINOPHILS RELATIVE PERCENT (BEAKER) (test 2 % tdur=840) BASOPHILS RELATIVE PERCENT (BEAKER) (test 1 % iegr=750) NEUTROPHILS ABSOLUTE COUNT (BEAKER) (test 6.41 K/ L 1.56-6.13 vnjm=501) LYMPHOCYTES ABSOLUTE COUNT (BEAKER) (test 1.32 K/ L 1.18-3.74 hrre=093) MONOCYTES ABSOLUTE COUNT (BEAKER) (test 0.65 K/ L 0.24-0.36 fnfc=239) EOSINOPHILS ABSOLUTE COUNT (BEAKER) (test 0.20 K/ L 0.04-0.36 fhqm=686) BASOPHILS ABSOLUTE COUNT (BEAKER) (test 0.08 K/ L 0.01-0.08 blla=093) IMMATURE GRANULOCYTES-RELATIVE PERCENT (BEAKER) 0 % 0-1 (test fizi=7950) POCT-GLUCOSE [id number] 21:28:00 Test Item Value Reference Range Comments POC-GLUCOSE METER (BEAKER) 216 mg/dL 70-110 TESTED AT [address] (test tgbn=7849) [facility] [address] POCT-GLUCOSE [id number] 18:25:00 Test Item Value Reference Range Comments POC-GLUCOSE METER (BEAKER) 182 mg/dL 70-110 TESTED AT [address] (test chnu=6936) [facility] [address] POCT-GLUCOSE [id number] 09:37:00 Test Item Value Reference Range Comments POC-GLUCOSE METER (BEAKER) 155 mg/dL 70-110 TESTED AT [facility] [address] [facility] (test zgbn=1661) [facility] [address] CALCIUM, [id number] 07:37:00 Test Item Value Reference Range Comments CALCIUM IONIZED (BEAKER) (test tlmw=887) 1.11 mmol/L 1.12-1.27 PH, BLOOD (BEAKER) (test eudw=5076) 7.39 [id number] 07:10:00 Test Item Value Reference Range Comments FERRITIN (BEAKER) (test idbi=804) 445 ng/mL 5-275 IRON, TIBC, % SAT. (WITHOUT FERRITIN)2017-08-04 07:04:00 Test Item Value Reference Range Comments IRON (BEAKER) (test enci=865) 55 ug/dL 40-160 TOTAL IRON BINDING CAPACITY (BEAKER) (test 198 ug/dL 250-450 vbtv=878) IRON % SATURATION (2) (BEAKER) (test twbb=0831) 28 % 20-55 [id number] 06:57:00 Test Item Value Reference Range Comments PHOSPHORUS (BEAKER) (test auhv=174) 4.3 mg/dL 2.3-4.7 [id number] 06:57:00 Test Item Value Reference Range Comments MAGNESIUM (BEAKER) (test hxwv=513) 2.1 mg/dL 1.6-2.6 BASIC METABOLIC [id number] 06:57:00 Test Item Value Reference Range Comments SODIUM (BEAKER) (test 138 meq/L 136-145 gttg=516) POTASSIUM (BEAKER) (test 3.8 meq/L 3.5-5.1 qkan=006) CHLORIDE (BEAKER) (test 99 meq/L 98-107 hwek=054) CO2 (BEAKER) (test 29 meq/L 22-29 ligc=067) BLOOD UREA NITROGEN 18 mg/dL 7-21 (BEAKER) (test svrs=775) CREATININE (BEAKER) (test 1.75 mg/dL 0.57-1.25 lrqv=573) GLUCOSE RANDOM (BEAKER) 138 mg/dL 70-105 (test pfgn=046) CALCIUM (BEAKER) (test 9.7 mg/dL 8.4-10.2 jxoo=377) EGFR (BEAKER) (test 35 mL/min/1.73 sq m ESTIMATED GFR IS NOT uken=1387) ACCURATE CREATININE CLEARANCE IN PREDICTING GLOMERULAR FILTRATION RATE. ESTIMATED GFR IS NOT APPLICABLE FOR DIALYSIS PATIENTS. B-TYPE NATRIURETIC FACTOR (BNP)2017-08-04 06:54:00 Test Item Value Reference Range Comments B-TYPE NATRIURETIC PEPTIDE (BEAKER) (test 778 pg/mL 0-100 elbx=576) RETICULOCYTE [id number] 06:39:00 Test Item Value Reference Range Comments RETICULOCYTE COUNT PCT (BEAKER) (test jbsc=970) 8.3 % 0.5-1.7 CBC W/PLT COUNT & AUTO [id number] 06:39:00 Test Item Value Reference Range Comments WHITE BLOOD CELL COUNT (BEAKER) (test mruy=856) 9.0 K/ L 3.5-10.5 RED BLOOD CELL COUNT (BEAKER) (test xtpl=219) 2.55 M/ L 3.93-5.22 HEMOGLOBIN (BEAKER) (test ydfj=532) 7.8 GM/DL 11.2-15.7 HEMATOCRIT (BEAKER) (test oxht=916) 25.4 % 34.1-44.9 MEAN CORPUSCULAR VOLUME (BEAKER) (test krjx=582) 99.6 fL 79.4-94.8 MEAN CORPUSCULAR HEMOGLOBIN (BEAKER) (test 30.6 pg 25.6-32.2 mlcq=651) MEAN CORPUSCULAR HEMOGLOBIN CONC (BEAKER) (test 30.7 GM/DL 32.2-35.5 cipx=812) RED CELL DISTRIBUTION WIDTH (BEAKER) (test 15.9 % 11.7-14.4 qjxy=512) PLATELET COUNT (BEAKER) (test vdng=071) 591 K/CU MM 150-450 MEAN PLATELET VOLUME (BEAKER) (test wsid=406) 9.5 fL 9.4-12.3 NUCLEATED RED BLOOD CELLS (BEAKER) (test 0 /100 WBC 0-0 yuwh=141) NEUTROPHILS RELATIVE PERCENT (BEAKER) (test 77 % bbel=230) LYMPHOCYTES RELATIVE PERCENT (BEAKER) (test 13 % kuon=380) MONOCYTES RELATIVE PERCENT (BEAKER) (test 7 % hcso=592) EOSINOPHILS RELATIVE PERCENT (BEAKER) (test 2 % jcid=504) BASOPHILS RELATIVE PERCENT (BEAKER) (test 1 % kuqe=602) NEUTROPHILS ABSOLUTE COUNT (BEAKER) (test 6.97 K/ L 1.56-6.13 qfnh=634) LYMPHOCYTES ABSOLUTE COUNT (BEAKER) (test 1.13 K/ L 1.18-3.74 xoqy=598) MONOCYTES ABSOLUTE COUNT (BEAKER) (test 0.65 K/ L 0.24-0.36 fngu=621) EOSINOPHILS ABSOLUTE COUNT (BEAKER) (test 0.18 K/ L 0.04-0.36 lgem=471) BASOPHILS ABSOLUTE COUNT (BEAKER) (test 0.07 K/ L 0.01-0.08 pzym=745) IMMATURE GRANULOCYTES-RELATIVE PERCENT (BEAKER) 0 % 0-1 (test fvyd=4497) POCT-GLUCOSE [id number] 20:56:00 Test Item Value Reference Range Comments POC-GLUCOSE METER (BEAKER) 167 mg/dL 70-110 TESTED AT [address] (test iymm=6808) [place] [address] POCT-GLUCOSE [id number] 16:36:00 Test Item Value Reference Range Comments POC-GLUCOSE METER (BEAKER) 200 mg/dL 70-110 TESTED AT [address] (test kdnf=1116) [place] [address] POCT-GLUCOSE [id number] 12:59:00 Test Item Value Reference Range Comments POC-GLUCOSE METER (BEAKER) 202 mg/dL 70-110 TESTED AT [address] (test xwvy=1556) [place] [address] POCT-GLUCOSE [id number] 07:37:00 Test Item Value Reference Range Comments POC-GLUCOSE METER (BEAKER) 154 mg/dL 70-110 TESTED AT [address] (test qggb=3709) [place] [address] CBC W/PLT COUNT & AUTO [id number] 06:49:00 Test Item Value Reference Range Comments WHITE BLOOD CELL COUNT (BEAKER) (test lqqh=437) 9.8 K/ L 3.5-10.5 RED BLOOD CELL COUNT (BEAKER) (test bjwj=610) 2.62 M/ L 3.93-5.22 HEMOGLOBIN (BEAKER) (test tfqt=304) 8.1 GM/DL 11.2-15.7 HEMATOCRIT (BEAKER) (test qmtv=723) 25.9 % 34.1-44.9 MEAN CORPUSCULAR VOLUME (BEAKER) (test zjca=232) 98.9 fL 79.4-94.8 MEAN CORPUSCULAR HEMOGLOBIN (BEAKER) (test 30.9 pg 25.6-32.2 bhtq=815) MEAN CORPUSCULAR HEMOGLOBIN CONC (BEAKER) (test 31.3 GM/DL 32.2-35.5 tops=898) RED CELL DISTRIBUTION WIDTH (BEAKER) (test 15.8 % 11.7-14.4 gdpd=031) PLATELET COUNT (BEAKER) (test pcnn=440) 667 K/CU MM 150-450 MEAN PLATELET VOLUME (BEAKER) (test pqof=304) 9.4 fL 9.4-12.3 NUCLEATED RED BLOOD CELLS (BEAKER) (test 0 /100 WBC 0-0 roja=756) NEUTROPHILS RELATIVE PERCENT (BEAKER) (test 77 % swqm=887) LYMPHOCYTES RELATIVE PERCENT (BEAKER) (test 13 % buik=170) MONOCYTES RELATIVE PERCENT (BEAKER) (test 7 % wblj=139) EOSINOPHILS RELATIVE PERCENT (BEAKER) (test 2 % ryie=300) BASOPHILS RELATIVE PERCENT (BEAKER) (test 1 % shsp=200) NEUTROPHILS ABSOLUTE COUNT (BEAKER) (test 7.57 K/ L 1.56-6.13 bxnv=866) LYMPHOCYTES ABSOLUTE COUNT (BEAKER) (test 1.23 K/ L 1.18-3.74 lpuk=813) MONOCYTES ABSOLUTE COUNT (BEAKER) (test 0.69 K/ L 0.24-0.36 cjbv=831) EOSINOPHILS ABSOLUTE COUNT (BEAKER) (test 0.16 K/ L 0.04-0.36 uzsw=616) BASOPHILS ABSOLUTE COUNT (BEAKER) (test 0.08 K/ L 0.01-0.08 pfgq=028) IMMATURE GRANULOCYTES-RELATIVE PERCENT (BEAKER) 1 % 0-1 (test ccpu=0526) CALCIUM, [id number] 06:38:00 Test Item Value Reference Range Comments CALCIUM IONIZED (BEAKER) (test mavi=138) 1.07 mmol/L 1.12-1.27 PH, BLOOD (BEAKER) (test vbvy=1261) 7.42 [id number] 06:08:00 Test Item Value Reference Range Comments PHOSPHORUS (BEAKER) (test fwxo=783) 4.3 mg/dL 2.3-4.7 [id number] 06:08:00 Test Item Value Reference Range Comments MAGNESIUM (BEAKER) (test klfl=589) 2.4 mg/dL 1.6-2.6 BASIC METABOLIC [id number] 06:08:00 Test Item Value Reference Range Comments SODIUM (BEAKER) (test 138 meq/L 136-145 goux=693) POTASSIUM (BEAKER) (test 4.0 meq/L 3.5-5.1 iyzl=936) CHLORIDE (BEAKER) (test 99 meq/L 98-107 brwt=821) CO2 (BEAKER) (test 29 meq/L 22-29 whbx=816) BLOOD UREA NITROGEN 15 mg/dL 7-21 (BEAKER) (test kelf=435) CREATININE (BEAKER) (test 1.64 mg/dL 0.57-1.25 eojn=663) GLUCOSE RANDOM (BEAKER) 135 mg/dL 70-105 (test gsxl=407) CALCIUM (BEAKER) (test 9.5 mg/dL 8.4-10.2 rgqx=451) EGFR (BEAKER) (test 38 mL/min/1.73 sq m ESTIMATED GFR IS NOT abqm=7080) ACCURATE CREATININE CLEARANCE IN PREDICTING GLOMERULAR FILTRATION RATE. ESTIMATED GFR IS NOT APPLICABLE FOR DIALYSIS PATIENTS. POCT-GLUCOSE [id number] 21:13:00 Test Item Value Reference Range Comments POC-GLUCOSE METER (BEAKER) 145 mg/dL 70-110 TESTED AT [facility] [address] [facility] (test zmxl=7379) [facility] [address] POCT-GLUCOSE [id number] 17:08:00 Test Item Value Reference Range Comments POC-GLUCOSE METER (BEAKER) 134 mg/dL 70-110 TESTED AT [place] [id number] [facility] (test qnig=6930) [facility] [address] POCT-GLUCOSE [id number] 11:44:00 Test Item Value Reference Range Comments POC-GLUCOSE METER (BEAKER) 159 mg/dL 70-110 TESTED AT [facility] [address] [facility] (test ddju=8515) [facility] [address] POCT-GLUCOSE [id number] 08:07:00 Test Item Value Reference Range Comments POC-GLUCOSE METER (BEAKER) 152 mg/dL 70-110 TESTED AT [facility] [address] [facility] (test uaum=3436) [facility] [address] CALCIUM, [id number] 05:26:00 Test Item Value Reference Range Comments CALCIUM IONIZED (BEAKER) (test wupt=345) 1.10 mmol/L 1.12-1.27 PH, BLOOD (BEAKER) (test wwog=5258) 7.42 [id number] 05:05:00 Test Item Value Reference Range Comments PHOSPHORUS (BEAKER) (test zvkt=935) 4.6 mg/dL 2.3-4.7 [id number] 05:05:00 Test Item Value Reference Range Comments MAGNESIUM (BEAKER) (test vhnn=642) 1.6 mg/dL 1.6-2.6 COMPREHENSIVE METABOLIC [id number] 05:05:00 Test Item Value Reference Range Comments TOTAL PROTEIN (BEAKER) 6.9 gm/dL 6.0-8.3 (test obmi=136) ALBUMIN (BEAKER) (test 3.2 g/dL 3.5-5.0 dsry=9258) ALKALINE PHOSPHATASE 55 U/L 40-150 (BEAKER) (test swzj=628) BILIRUBIN TOTAL (BEAKER) 0.6 mg/dL 0.2-1.2 (test jiks=014) SODIUM (BEAKER) (test 139 meq/L 136-145 ruxk=272) POTASSIUM (BEAKER) (test 3.9 meq/L 3.5-5.1 ugpz=633) CHLORIDE (BEAKER) (test 100 meq/L 98-107 npfg=298) CO2 (BEAKER) (test 27 meq/L 22-29 wjik=849) BLOOD UREA NITROGEN 15 mg/dL 7-21 (BEAKER) (test iiwu=169) CREATININE (BEAKER) (test 1.55 mg/dL 0.57-1.25 dvtn=985) GLUCOSE RANDOM (BEAKER) 125 mg/dL 70-105 (test tycn=037) CALCIUM (BEAKER) (test 9.2 mg/dL 8.4-10.2 vfuz=564) AST (SGOT) (BEAKER) (test 16 U/L 5-34 bden=462) ALT (SGPT) (BEAKER) (test 11 U/L 6-55 eonx=807) EGFR (BEAKER) (test 40 mL/min/1.73 sq m ESTIMATED GFR IS NOT ixod=5193) ACCURATE CREATININE CLEARANCE IN PREDICTING GLOMERULAR FILTRATION RATE. ESTIMATED GFR IS NOT APPLICABLE FOR DIALYSIS PATIENTS. CBC W/PLT COUNT & AUTO [id number] 04:57:00 Test Item Value Reference Range Comments WHITE BLOOD CELL COUNT (BEAKER) (test vzbv=046) 10.8 K/ L 3.5-10.5 RED BLOOD CELL COUNT (BEAKER) (test tqxi=532) 2.57 M/ L 3.93-5.22 HEMOGLOBIN (BEAKER) (test rhnz=053) 7.9 GM/DL 11.2-15.7 HEMATOCRIT (BEAKER) (test gdzh=802) 25.2 % 34.1-44.9 MEAN CORPUSCULAR VOLUME (BEAKER) (test ajpn=480) 98.1 fL 79.4-94.8 MEAN CORPUSCULAR HEMOGLOBIN (BEAKER) (test 30.7 pg 25.6-32.2 jbui=742) MEAN CORPUSCULAR HEMOGLOBIN CONC (BEAKER) (test 31.3 GM/DL 32.2-35.5 liaa=271) RED CELL DISTRIBUTION WIDTH (BEAKER) (test 15.9 % 11.7-14.4 sgxa=587) PLATELET COUNT (BEAKER) (test zdti=137) 623 K/CU MM 150-450 MEAN PLATELET VOLUME (BEAKER) (test sieh=017) 9.4 fL 9.4-12.3 NUCLEATED RED BLOOD CELLS (BEAKER) (test 0 /100 WBC 0-0 vkad=215) NEUTROPHILS RELATIVE PERCENT (BEAKER) (test 79 % poqc=358) LYMPHOCYTES RELATIVE PERCENT (BEAKER) (test 12 % pslf=001) MONOCYTES RELATIVE PERCENT (BEAKER) (test 7 % xgyy=448) EOSINOPHILS RELATIVE PERCENT (BEAKER) (test 2 % qapa=653) BASOPHILS RELATIVE PERCENT (BEAKER) (test 1 % nouy=447) NEUTROPHILS ABSOLUTE COUNT (BEAKER) (test 8.49 K/ L 1.56-6.13 wiyb=853) LYMPHOCYTES ABSOLUTE COUNT (BEAKER) (test 1.28 K/ L 1.18-3.74 nszj=859) MONOCYTES ABSOLUTE COUNT (BEAKER) (test 0.74 K/ L 0.24-0.36 gojx=822) EOSINOPHILS ABSOLUTE COUNT (BEAKER) (test 0.18 K/ L 0.04-0.36 ddok=133) BASOPHILS ABSOLUTE COUNT (BEAKER) (test 0.05 K/ L 0.01-0.08 rlgf=429) IMMATURE GRANULOCYTES-RELATIVE PERCENT (BEAKER) 1 % 0-1 (test jbff=4475) POCT-GLUCOSE [id number] 01:29:00 Test Item Value Reference Range Comments POC-GLUCOSE METER (BEAKER) 182 mg/dL 70-110 TESTED AT [address] (test tfwc=4786) [place] [address] POCT-GLUCOSE [id number] 22:32:00 Test Item Value Reference Range Comments POC-GLUCOSE METER (BEAKER) 204 mg/dL 70-110 TESTED AT [address] (test pqrg=1164) [place] [address] POCT-GLUCOSE [id number] 18:53:00 Test Item Value Reference Range Comments POC-GLUCOSE METER (BEAKER) 154 mg/dL 70-110 TESTED AT [address] (test stnf=9155) [place] [id number] POCT-GLUCOSE [id number] 15:50:00 Test Item Value Reference Range Comments POC-GLUCOSE METER (BEAKER) 172 mg/dL 70-110 TESTED AT [address] (test rxfj=7156) [place] [address] B-TYPE NATRIURETIC FACTOR (BNP)2017-08-01 15:41:00 Test Item Value Reference Range Comments B-TYPE NATRIURETIC PEPTIDE (BEAKER) (test 1253 pg/mL 0-100 uvjh=233) RAD, CHEST, 1 VIEW, NON [id number] 15:00:00Reason for exam:->SOBShould this be performed at the bedside?->YesFINAL REPORT Chest one view compared to July 28, 2017 Discussion: There is cardiac prominence. Lungs are grossly clear. No effusion or pneumothorax. There is either hiatal hernia or aortic tortuosity. IMPRESSIONS: No significant change. Signed: Tony Hsu MDReport Verified Date/Time: 08/01/2017 15:00:05 Reading Location: [facility] [id number] Consult Reading Room Electronicallysigned by: TONY HSU M.D. on 08/01/2017 03:00 PMPOCT-GLUCOSE [id number] 09:28:00 Test Item Value Reference Range Comments POC-GLUCOSE METER (BEAKER) 155 mg/dL 70-110 TESTED AT [facility] [address] [facility] (test xyil=3763) [facility] [address] BASIC METABOLIC [id number] 08:00:00 Test Item Value Reference Range Comments SODIUM (BEAKER) (test 138 meq/L 136-145 zell=471) POTASSIUM (BEAKER) (test 3.8 meq/L 3.5-5.1 jbfa=753) CHLORIDE (BEAKER) (test 100 meq/L 98-107 mhng=953) CO2 (BEAKER) (test 27 meq/L 22-29 kuby=459) BLOOD UREA NITROGEN 14 mg/dL 7-21 (BEAKER) (test ejni=758) CREATININE (BEAKER) (test 1.47 mg/dL 0.57-1.25 hsuh=375) GLUCOSE RANDOM (BEAKER) 150 mg/dL 70-105 (test fpwz=266) CALCIUM (BEAKER) (test 9.0 mg/dL 8.4-10.2 qpmd=503) EGFR (BEAKER) (test 43 mL/min/1.73 sq m ESTIMATED GFR IS NOT winl=4672) ACCURATE CREATININE CLEARANCE IN PREDICTING GLOMERULAR FILTRATION RATE. ESTIMATED GFR IS NOT APPLICABLE FOR DIALYSIS PATIENTS. CBC W/PLT COUNT & AUTO [id number] 07:54:00 Test Item Value Reference Range Comments WHITE BLOOD CELL COUNT (BEAKER) (test zczq=873) 12.4 K/ L 3.5-10.5 RED BLOOD CELL COUNT (BEAKER) (test cqgt=831) 2.57 M/ L 3.93-5.22 HEMOGLOBIN (BEAKER) (test eyqe=704) 7.7 GM/DL 11.2-15.7 HEMATOCRIT (BEAKER) (test xzrz=682) 25.0 % 34.1-44.9 MEAN CORPUSCULAR VOLUME (BEAKER) (test ujzs=952) 97.3 fL 79.4-94.8 MEAN CORPUSCULAR HEMOGLOBIN (BEAKER) (test 30.0 pg 25.6-32.2 tnno=449) MEAN CORPUSCULAR HEMOGLOBIN CONC (BEAKER) (test 30.8 GM/DL 32.2-35.5 uwao=340) RED CELL DISTRIBUTION WIDTH (BEAKER) (test 15.8 % 11.7-14.4 qdof=263) PLATELET COUNT (BEAKER) (test zjal=741) 582 K/CU MM 150-450 MEAN PLATELET VOLUME (BEAKER) (test zhmh=476) 9.5 fL 9.4-12.3 NUCLEATED RED BLOOD CELLS (BEAKER) (test 0 /100 WBC 0-0 vane=068) NEUTROPHILS RELATIVE PERCENT (BEAKER) (test 82 % pfjj=368) LYMPHOCYTES RELATIVE PERCENT (BEAKER) (test 10 % tqjy=366) MONOCYTES RELATIVE PERCENT (BEAKER) (test 6 % fisl=855) EOSINOPHILS RELATIVE PERCENT (BEAKER) (test 1 % zvcv=173) BASOPHILS RELATIVE PERCENT (BEAKER) (test 1 % kwhn=426) NEUTROPHILS ABSOLUTE COUNT (BEAKER) (test 10.08 K/ L 1.56-6.13 jcxz=458) LYMPHOCYTES ABSOLUTE COUNT (BEAKER) (test 1.19 K/ L 1.18-3.74 vycx=777) MONOCYTES ABSOLUTE COUNT (BEAKER) (test 0.74 K/ L 0.24-0.36 xygj=714) EOSINOPHILS ABSOLUTE COUNT (BEAKER) (test 0.16 K/ L 0.04-0.36 uhqw=228) BASOPHILS ABSOLUTE COUNT (BEAKER) (test 0.10 K/ L 0.01-0.08 lmez=679) IMMATURE GRANULOCYTES-RELATIVE PERCENT (BEAKER) 1 % 0-1 (test xphf=8217) POCT-GLUCOSE [id number] 21:34:00 Test Item Value Reference Range Comments POC-GLUCOSE METER (BEAKER) 153 mg/dL 70-110 TESTED AT [address] (test ljcv=5602) [facility] [address] POCT-GLUCOSE [id number] 17:34:00 Test Item Value Reference Range Comments POC-GLUCOSE METER (BEAKER) 165 mg/dL 70-110 TESTED AT [address] (test xvom=3173) [facility] [address] POCT-GLUCOSE [id number] 14:33:00 Test Item Value Reference Range Comments POC-GLUCOSE METER (BEAKER) 208 mg/dL 70-110 TESTED AT [address] (test mdta=1556) [place] [id number] POCT-GLUCOSE [id number] 12:54:00 Test Item Value Reference Range Comments POC-GLUCOSE METER (BEAKER) 218 mg/dL 70-110 TESTED AT [address] (test bpjh=2103) [place] [id number] POCT-GLUCOSE [id number] 10:34:00 Test Item Value Reference Range Comments POC-GLUCOSE METER (BEAKER) 204 mg/dL 70-110 TESTED AT [address] (test rfeh=6952) [place] [id number] POCT-GLUCOSE [id number] 08:41:00 Test Item Value Reference Range Comments POC-GLUCOSE METER (BEAKER) 201 mg/dL 70-110 TESTED AT [address] (test lvsx=8108) [place] [id number] [id number] 05:54:00 Test Item Value Reference Range Comments MAGNESIUM (BEAKER) (test ulot=528) 1.8 mg/dL 1.6-2.6 BASIC METABOLIC [id number] 05:54:00 Test Item Value Reference Range Comments SODIUM (BEAKER) (test 138 meq/L 136-145 shdt=686) POTASSIUM (BEAKER) (test 3.6 meq/L 3.5-5.1 hzdv=281) CHLORIDE (BEAKER) (test 100 meq/L 98-107 nhuz=037) CO2 (BEAKER) (test 25 meq/L 22-29 duxh=602) BLOOD UREA NITROGEN 14 mg/dL 7-21 (BEAKER) (test tipx=402) CREATININE (BEAKER) (test 1.42 mg/dL 0.57-1.25 glxe=736) GLUCOSE RANDOM (BEAKER) 145 mg/dL 70-105 (test hvez=285) CALCIUM (BEAKER) (test 9.4 mg/dL 8.4-10.2 ljyy=575) EGFR (BEAKER) (test 44 mL/min/1.73 sq m ESTIMATED GFR IS NOT kmas=9411) ACCURATE CREATININE CLEARANCE IN PREDICTING GLOMERULAR FILTRATION RATE. ESTIMATED GFR IS NOT APPLICABLE FOR DIALYSIS PATIENTS. CBC (HEMOGRAM ONLY)2017-07-31 05:42:00 Test Item Value Reference Range Comments WHITE BLOOD CELL COUNT (BEAKER) (test skqe=971) 13.3 K/ L 3.5-10.5 RED BLOOD CELL COUNT (BEAKER) (test evci=713) 2.65 M/ L 3.93-5.22 HEMOGLOBIN (BEAKER) (test czrl=488) 7.9 GM/DL 11.2-15.7 HEMATOCRIT (BEAKER) (test nhuy=378) 25.9 % 34.1-44.9 MEAN CORPUSCULAR VOLUME (BEAKER) (test cafd=111) 97.7 fL 79.4-94.8 MEAN CORPUSCULAR HEMOGLOBIN (BEAKER) (test 29.8 pg 25.6-32.2 ezlk=805) MEAN CORPUSCULAR HEMOGLOBIN CONC (BEAKER) (test 30.5 GM/DL 32.2-35.5 zbjk=925) RED CELL DISTRIBUTION WIDTH (BEAKER) (test 15.3 % 11.7-14.4 gbnk=619) PLATELET COUNT (BEAKER) (test tjqp=329) 580 K/CU MM 150-450 MEAN PLATELET VOLUME (BEAKER) (test agiu=633) 9.7 fL 9.4-12.3 NUCLEATED RED BLOOD CELLS (BEAKER) (test 0 /100 WBC 0-0 kzws=936) POCT-GLUCOSE [id number] 21:21:00 Test Item Value Reference Range Comments POC-GLUCOSE METER (BEAKER) 206 mg/dL 70-110 TESTED AT [address] (test vjut=4056) [facility] [address] POCT-GLUCOSE [id number] 17:50:00 Test Item Value Reference Range Comments POC-GLUCOSE METER (BEAKER) 160 mg/dL 70-110 TESTED AT [address] (test pwww=7191) [facility] [address] POCT-GLUCOSE [id number] 12:12:00 Test Item Value Reference Range Comments POC-GLUCOSE METER (BEAKER) 214 mg/dL 70-110 TESTED AT [address] (test jbrh=1998) [facility] [address] POCT-GLUCOSE [id number] 07:59:00 Test Item Value Reference Range Comments POC-GLUCOSE METER (BEAKER) 146 mg/dL 70-110 TESTED AT [facility] [address] (test psig=7439) [place] [address] CALCIUM, [id number] 07:23:00 Test Item Value Reference Range Comments CALCIUM IONIZED (BEAKER) (test ponc=699) 1.11 mmol/L 1.12-1.27 PH, BLOOD (BEAKER) (test lcmp=3637) 7.42 [id number] 07:07:00 Test Item Value Reference Range Comments PHOSPHORUS (BEAKER) (test otse=161) 3.5 mg/dL 2.3-4.7 [id number] 07:07:00 Test Item Value Reference Range Comments MAGNESIUM (BEAKER) (test lbdv=643) 1.8 mg/dL 1.6-2.6 COMPREHENSIVE METABOLIC [id number] 07:07:00 Test Item Value Reference Range Comments TOTAL PROTEIN (BEAKER) 6.7 gm/dL 6.0-8.3 (test urni=757) ALBUMIN (BEAKER) (test 3.1 g/dL 3.5-5.0 yxgi=4710) ALKALINE PHOSPHATASE 53 U/L 40-150 (BEAKER) (test vjma=877) BILIRUBIN TOTAL (BEAKER) 0.6 mg/dL 0.2-1.2 (test rqfh=820) SODIUM (BEAKER) (test 139 meq/L 136-145 jrro=654) POTASSIUM (BEAKER) (test 4.0 meq/L 3.5-5.1 dbui=883) CHLORIDE (BEAKER) (test 103 meq/L 98-107 ksyh=505) CO2 (BEAKER) (test 27 meq/L 22-29 orgc=460) BLOOD UREA NITROGEN 16 mg/dL 7-21 (BEAKER) (test kvce=489) CREATININE (BEAKER) (test 1.34 mg/dL 0.57-1.25 vflk=128) GLUCOSE RANDOM (BEAKER) 116 mg/dL 70-105 (test jtnr=421) CALCIUM (BEAKER) (test 9.2 mg/dL 8.4-10.2 xxhr=474) AST (SGOT) (BEAKER) (test 15 U/L 5-34 tver=893) ALT (SGPT) (BEAKER) (test 11 U/L 6-55 nmsq=665) EGFR (BEAKER) (test 47 mL/min/1.73 sq m ESTIMATED GFR IS NOT iceo=1104) ACCURATE CREATININE CLEARANCE IN PREDICTING GLOMERULAR FILTRATION RATE. ESTIMATED GFR IS NOT APPLICABLE FOR DIALYSIS PATIENTS. CBC W/PLT COUNT & AUTO [id number] 06:52:00 Test Item Value Reference Range Comments WHITE BLOOD CELL COUNT (BEAKER) (test agxp=091) 12.8 K/ L 3.5-10.5 RED BLOOD CELL COUNT (BEAKER) (test tbpz=323) 2.43 M/ L 3.93-5.22 HEMOGLOBIN (BEAKER) (test trpv=535) 7.2 GM/DL 11.2-15.7 HEMATOCRIT (BEAKER) (test yicw=085) 23.8 % 34.1-44.9 MEAN CORPUSCULAR VOLUME (BEAKER) (test yhko=596) 97.9 fL 79.4-94.8 MEAN CORPUSCULAR HEMOGLOBIN (BEAKER) (test 29.6 pg 25.6-32.2 xfzz=843) MEAN CORPUSCULAR HEMOGLOBIN CONC (BEAKER) (test 30.3 GM/DL 32.2-35.5 kxli=006) RED CELL DISTRIBUTION WIDTH (BEAKER) (test 15.0 % 11.7-14.4 qjyi=457) PLATELET COUNT (BEAKER) (test bzta=066) 456 K/CU MM 150-450 MEAN PLATELET VOLUME (BEAKER) (test eupq=812) 10.3 fL 9.4-12.3 NUCLEATED RED BLOOD CELLS (BEAKER) (test 0 /100 WBC 0-0 rsot=326) NEUTROPHILS RELATIVE PERCENT (BEAKER) (test 82 % hizg=170) LYMPHOCYTES RELATIVE PERCENT (BEAKER) (test 9 % jhfp=677) MONOCYTES RELATIVE PERCENT (BEAKER) (test 6 % dqwr=489) EOSINOPHILS RELATIVE PERCENT (BEAKER) (test 2 % crbi=473) BASOPHILS RELATIVE PERCENT (BEAKER) (test 0 % kfeq=692) NEUTROPHILS ABSOLUTE COUNT (BEAKER) (test 10.52 K/ L 1.56-6.13 mdul=824) LYMPHOCYTES ABSOLUTE COUNT (BEAKER) (test 1.19 K/ L 1.18-3.74 btby=461) MONOCYTES ABSOLUTE COUNT (BEAKER) (test 0.73 K/ L 0.24-0.36 ouhb=984) EOSINOPHILS ABSOLUTE COUNT (BEAKER) (test 0.22 K/ L 0.04-0.36 wmjq=952) BASOPHILS ABSOLUTE COUNT (BEAKER) (test 0.04 K/ L 0.01-0.08 oabo=927) IMMATURE GRANULOCYTES-RELATIVE PERCENT (BEAKER) 1 % 0-1 (test utuk=7995) POCT-GLUCOSE [id number] 21:47:00 Test Item Value Reference Range Comments POC-GLUCOSE METER (BEAKER) 106 mg/dL 70-110 TESTED AT [address] (test brve=4764) [place] [address] POCT-GLUCOSE [id number] 18:50:00 Test Item Value Reference Range Comments POC-GLUCOSE METER (BEAKER) 175 mg/dL 70-110 TESTED AT [address] (test dbqa=1988) [place] [address] [id number] 15:18:00 Test Item Value Reference Range Comments POTASSIUM (BEAKER) (test eobt=920) 3.7 meq/L 3.5-5.1 [id number] 15:18:00 Test Item Value Reference Range Comments MAGNESIUM (BEAKER) (test rslc=761) 2.2 mg/dL 1.6-2.6 POCT-GLUCOSE [id number] 11:48:00 Test Item Value Reference Range Comments POC-GLUCOSE METER (BEAKER) 131 mg/dL 70-110 TESTED AT [address] (test ufdz=7366) [place] [address] BLOOD GAS, [id number] 11:46:00 Test Item Value Reference Range Comments PH ARTERIAL (BEAKER) (test sccm=954) 7.43 7.35-7.45 PCO2 ARTERIAL (BEAKER) (test emol=371) 46 mmHg 35-45 PO2 ARTERIAL (BEAKER) (test djlx=069) 83 mmHg 80-90 O2 SATURATION ARTERIAL (BEAKER) (test zsrg=740) 96.5 % 96.0-97.0 HCO3 ARTERIAL (BEAKER) (test qecu=220) 30 mmol/L 21-29 BASE EXCESS ARTERIAL (BEAKER) (test yoje=530) 4.8 mmol/L -2.0-3.0 PATIENT TEMPERATURE (BEAKER) (test msep=5440) 36.9 C FIO2 (BEAKER) (test hhfy=4782) 36.0 % POCT-GLUCOSE [id number] 08:29:00 Test Item Value Reference Range Comments POC-GLUCOSE METER (BEAKER) 129 mg/dL 70-110 TESTED AT [facility] [address] [facility] (test ywnm=0663) [place] [address] CALCIUM, [id number] 04:18:00 Test Item Value Reference Range Comments CALCIUM IONIZED (BEAKER) (test sygm=698) 1.11 mmol/L 1.12-1.27 PH, BLOOD (BEAKER) (test nwza=6573) 7.40 B-TYPE NATRIURETIC FACTOR (BNP)2017-07-29 04:06:00 Test Item Value Reference Range Comments B-TYPE NATRIURETIC PEPTIDE (BEAKER) (test 982 pg/mL 0-100 mpph=508) [id number] 03:59:00 Test Item Value Reference Range Comments PHOSPHORUS (BEAKER) (test aydk=792) 3.6 mg/dL 2.3-4.7 [id number] 03:59:00 Test Item Value Reference Range Comments MAGNESIUM (BEAKER) (test jdjx=528) 1.9 mg/dL 1.6-2.6 BASIC METABOLIC [id number] 03:59:00 Test Item Value Reference Range Comments SODIUM (BEAKER) (test 141 meq/L 136-145 ulbz=886) POTASSIUM (BEAKER) (test 3.1 meq/L 3.5-5.1 fjoh=820) CHLORIDE (BEAKER) (test 103 meq/L 98-107 xxum=094) CO2 (BEAKER) (test 26 meq/L 22-29 mpni=967) BLOOD UREA NITROGEN 17 mg/dL 7-21 (BEAKER) (test twnt=028) CREATININE (BEAKER) (test 1.43 mg/dL 0.57-1.25 zhcn=386) GLUCOSE RANDOM (BEAKER) 110 mg/dL 70-105 (test lvdz=551) CALCIUM (BEAKER) (test 9.0 mg/dL 8.4-10.2 lxub=374) EGFR (BEAKER) (test 44 mL/min/1.73 sq m ESTIMATED GFR IS NOT vady=1139) ACCURATE CREATININE CLEARANCE IN PREDICTING GLOMERULAR FILTRATION RATE. ESTIMATED GFR IS NOT APPLICABLE FOR DIALYSIS PATIENTS. CBC (HEMOGRAM ONLY)2017-07-29 03:51:00 Test Item Value Reference Range Comments WHITE BLOOD CELL COUNT (BEAKER) (test vvrk=816) 12.2 K/ L 3.5-10.5 RED BLOOD CELL COUNT (BEAKER) (test qech=851) 2.48 M/ L 3.93-5.22 HEMOGLOBIN (BEAKER) (test eiwd=972) 7.4 GM/DL 11.2-15.7 HEMATOCRIT (BEAKER) (test juml=443) 24.2 % 34.1-44.9 MEAN CORPUSCULAR VOLUME (BEAKER) (test vntd=410) 97.6 fL 79.4-94.8 MEAN CORPUSCULAR HEMOGLOBIN (BEAKER) (test 29.8 pg 25.6-32.2 sreh=958) MEAN CORPUSCULAR HEMOGLOBIN CONC (BEAKER) (test 30.6 GM/DL 32.2-35.5 dznt=437) RED CELL DISTRIBUTION WIDTH (BEAKER) (test 15.1 % 11.7-14.4 gart=268) PLATELET COUNT (BEAKER) (test ffko=410) 410 K/CU MM 150-450 MEAN PLATELET VOLUME (BEAKER) (test slvn=852) 10.2 fL 9.4-12.3 NUCLEATED RED BLOOD CELLS (BEAKER) (test 0 /100 WBC 0-0 jgxi=044) POCT-GLUCOSE [id number] 23:55:00 Test Item Value Reference Range Comments POC-GLUCOSE METER (BEAKER) 164 mg/dL 70-110 TESTED AT [facility] [address] [facility] (test iqwc=3125) [facility] [address] HERPES VIRUS ANTIBODY, [id number] 11:02:00 Test Item Value Reference Range Comments HERPES VIRUS IGM (BEAKER) (test fdwg=3252) Negative HSV IgM 1=NEGATIVEHSV IgM 2=NEGATIVETOXOPLASMA GONDII ANTIBODY, [id number] 11 :02:00 Test Item Value Reference Range Comments TOXOPLASMA IGM ANTIBODY (BEAKER) (test goje=462) Negative RAD, CHEST, 1 VIEW, NON [id number] 10:48:00Reason for exam:->acute respiratory insufficiencyShould this be [...] MDReport Verified Date/Time: 07/28/2017 10:48:24 Reading Location: [facility] Radiology Reading Room [id number] 05:13:00 Test Item Value Reference Range Comments PHOSPHORUS (BEAKER) (test bnps=791) 3.3 mg/dL 2.3-4.7 [id number] 05:13:00 Test Item Value Reference Range Comments MAGNESIUM (BEAKER) (test yyff=104) 1.9 mg/dL 1.6-2.6 HEPATIC FUNCTION [id number] 05:13:00 Test Item Value Reference Range Comments TOTAL PROTEIN (BEAKER) (test pkmq=666) 7.5 gm/dL 6.0-8.3 ALBUMIN (BEAKER) (test sibg=3579) 3.6 g/dL 3.5-5.0 BILIRUBIN TOTAL (BEAKER) (test umcl=277) 0.9 mg/dL 0.2-1.2 BILIRUBIN DIRECT (BEAKER) (test drut=442) 0.4 mg/dL 0.1-0.5 ALKALINE PHOSPHATASE (BEAKER) (test buky=944) 66 U/L 40-150 AST (SGOT) (BEAKER) (test srwv=358) 21 U/L 5-34 ALT (SGPT) (BEAKER) (test nuuu=344) 17 U/L 6-55 COMPREHENSIVE METABOLIC [id number] 05:13:00 Test Item Value Reference Range Comments TOTAL PROTEIN (BEAKER) 7.5 gm/dL 6.0-8.3 (test gkoz=712) ALBUMIN (BEAKER) (test 3.6 g/dL 3.5-5.0 atra=0921) ALKALINE PHOSPHATASE 66 U/L 40-150 (BEAKER) (test tbau=771) BILIRUBIN TOTAL (BEAKER) 0.9 mg/dL 0.2-1.2 (test lquk=371) SODIUM (BEAKER) (test 143 meq/L 136-145 wimp=629) POTASSIUM (BEAKER) (test 3.5 meq/L 3.5-5.1 pqtw=368) CHLORIDE (BEAKER) (test 105 meq/L 98-107 vkbs=324) CO2 (BEAKER) (test 25 meq/L 22-29 lmpy=543) BLOOD UREA NITROGEN 18 mg/dL 7-21 (BEAKER) (test gmyg=374) CREATININE (BEAKER) (test 1.43 mg/dL 0.57-1.25 aiab=248) GLUCOSE RANDOM (BEAKER) 130 mg/dL 70-105 (test evec=015) CALCIUM (BEAKER) (test 9.6 mg/dL 8.4-10.2 ruqd=961) AST (SGOT) (BEAKER) (test 21 U/L 5-34 vqtg=304) ALT (SGPT) (BEAKER) (test 17 U/L 6-55 gfuj=965) EGFR (BEAKER) (test 44 mL/min/1.73 sq m ESTIMATED GFR IS NOT dvbl=0023) ACCURATE CREATININE CLEARANCE IN PREDICTING GLOMERULAR FILTRATION RATE. ESTIMATED GFR IS NOT APPLICABLE FOR DIALYSIS PATIENTS. LACTATE DEHYDROGENASE (LDH)2017-07-28 05:13:00 Test Item Value Reference Range Comments LACTATE DEHYDROGENASE (BEAKER) (test ruvy=170) 639 U/L 125-220 CBC W/PLT COUNT & AUTO [id number] 04:57:00 Test Item Value Reference Range Comments WHITE BLOOD CELL COUNT (BEAKER) (test hwcz=100) 13.6 K/ L 3.5-10.5 RED BLOOD CELL COUNT (BEAKER) (test epzv=072) 2.86 M/ L 3.93-5.22 HEMOGLOBIN (BEAKER) (test igra=332) 8.5 GM/DL 11.2-15.7 HEMATOCRIT (BEAKER) (test gsxk=265) 28.9 % 34.1-44.9 MEAN CORPUSCULAR VOLUME (BEAKER) (test zzul=227) 101.0 fL 79.4-94.8 MEAN CORPUSCULAR HEMOGLOBIN (BEAKER) (test 29.7 pg 25.6-32.2 dsiu=031) MEAN CORPUSCULAR HEMOGLOBIN CONC (BEAKER) (test 29.4 GM/DL 32.2-35.5 ozyo=576) RED CELL DISTRIBUTION WIDTH (BEAKER) (test 15.2 % 11.7-14.4 putz=362) PLATELET COUNT (BEAKER) (test vpnz=518) 375 K/CU MM 150-450 MEAN PLATELET VOLUME (BEAKER) (test nyns=631) 10.7 fL 9.4-12.3 NUCLEATED RED BLOOD CELLS (BEAKER) (test 0 /100 WBC 0-0 jfjm=257) NEUTROPHILS RELATIVE PERCENT (BEAKER) (test 82 % ydmc=247) LYMPHOCYTES RELATIVE PERCENT (BEAKER) (test 9 % eurw=087) MONOCYTES RELATIVE PERCENT (BEAKER) (test 6 % akef=500) EOSINOPHILS RELATIVE PERCENT (BEAKER) (test 2 % cfav=375) BASOPHILS RELATIVE PERCENT (BEAKER) (test 1 % lena=352) NEUTROPHILS ABSOLUTE COUNT (BEAKER) (test 11.11 K/ L 1.56-6.13 jkbq=232) LYMPHOCYTES ABSOLUTE COUNT (BEAKER) (test 1.17 K/ L 1.18-3.74 xuzz=165) MONOCYTES ABSOLUTE COUNT (BEAKER) (test 0.83 K/ L 0.24-0.36 ukjm=443) EOSINOPHILS ABSOLUTE COUNT (BEAKER) (test 0.25 K/ L 0.04-0.36 perv=344) BASOPHILS ABSOLUTE COUNT (BEAKER) (test 0.07 K/ L 0.01-0.08 gkmh=840) IMMATURE GRANULOCYTES-RELATIVE PERCENT (BEAKER) 1 % 0-1 (test jcwk=0852) OCCULT BLOOD, [id number] 01:02:00 Test Item Value Reference Range Comments FECAL OCCULT BLOOD (BEAKER) (test tcnb=549) Negative Negative POCT-GLUCOSE [id number] 00:46:00 Test Item Value Reference Range Comments POC-GLUCOSE METER (BEAKER) 149 mg/dL 70-110 TESTED AT [facility] [address] [facility] (test itry=2601) [facility] [address] C. DIFFICILE GDH [id number] 19:51:00 Test Item Value Reference Range Comments CDT TOXIN (test Negative Negative pmkj=[id number]) CDT GDH ANTIGEN (test Negative Negative No indication of Clostridium pyev=[id number]) difficile infection and no colonization. Discontinue enteric isolation and therapy. Testing performed by [employer] Rapid Cassette Assay. For GDH, published sensitivity of the assay is 98.7% compared to cytotoxicity testing. For Toxin AB, published sensitivity is 87.8% and specificity 99.4% compared to cytotoxicity testing.Verification of kit performance was done by the [facility] Microbiology Lab prior to clinical use.POCT-GLUCOSE [id number] 18:11:00 Test Item Value Reference Range Comments POC-GLUCOSE METER (BEAKER) 201 mg/dL 70-110 TESTED AT [address] (test kngn=1947) [place] [address] BLOOD GAS, [id number] 17:03:00 Test Item Value Reference Range Comments PH ARTERIAL (BEAKER) (test tklk=080) 7.41 7.35-7.45 PCO2 ARTERIAL (BEAKER) (test rfiz=563) 45 mmHg 35-45 PO2 ARTERIAL (BEAKER) (test otxa=996) 94 mmHg 80-90 O2 SATURATION ARTERIAL (BEAKER) (test bdxe=994) 97.3 % 96.0-97.0 HCO3 ARTERIAL (BEAKER) (test lhgp=162) 28 mmol/L 21-29 BASE EXCESS ARTERIAL (BEAKER) (test ksqo=599) 2.3 mmol/L -2.0-3.0 PATIENT TEMPERATURE (BEAKER) (test xpfg=5246) 36.6 C FIO2 (BEAKER) (test pysu=2062) 40.0 % POCT-GLUCOSE [id number] 12:44:00 Test Item Value Reference Range Comments POC-GLUCOSE METER (BEAKER) 117 mg/dL 70-110 TESTED AT [address] (test byge=5473) [place] [address] B-TYPE NATRIURETIC FACTOR (BNP)2017-07-27 11:13:00 Test Item Value Reference Range Comments B-TYPE NATRIURETIC PEPTIDE (BEAKER) (test 1198 pg/mL 0-100 kgfz=555) LACTIC ACID, VENOUS, WHOLE [id number] 11:12:00 Test Item Value Reference Range Comments LACTATE BLOOD VENOUS (2) (BEAKER) (test 0.7 mmol/L 0.5-2.2 quwo=5812) Effective 08/06/2015: Units/Reference Range ChangeNew: 0.5-2.2 mmol/L Previous: 5 -20 mg/dLOXYGEN SATURATION, [id number] 10:28:00 Test Item Value Reference Range Comments O2 SATURATION (MEASURED) (BEAKER) (test qoip=6486) 59.6 % RAD, CHEST, 1 VIEW, NON [id number] 08:23:00Reason for exam:->acute respiratory insufficiencyShould this be [...] Verified Date/Time: 07/27/2017 08:23 :08 Reading Location: [facility] Radiology Reading Room POCT-GLUCOSE [id number] 07:53:00 Test Item Value Reference Range Comments POC-GLUCOSE METER (BEAKER) 124 mg/dL 70-110 TESTED AT [facility] [address] [place] [address] (test dgdk=0239) [facility] [address] BASIC METABOLIC [id number] 06:33:00 Test Item Value Reference Range Comments SODIUM (BEAKER) (test 144 meq/L 136-145 kudr=431) POTASSIUM (BEAKER) (test 3.8 meq/L 3.5-5.1 pstg=837) CHLORIDE (BEAKER) (test 109 meq/L 98-107 pbdm=706) CO2 (BEAKER) (test 24 meq/L 22-29 lisw=651) BLOOD UREA NITROGEN 20 mg/dL 7-21 (BEAKER) (test foku=697) CREATININE (BEAKER) (test 1.40 mg/dL 0.57-1.25 aajv=240) GLUCOSE RANDOM (BEAKER) 111 mg/dL 70-105 (test xtsz=998) CALCIUM (BEAKER) (test 8.8 mg/dL 8.4-10.2 lqew=153) EGFR (BEAKER) (test 45 mL/min/1.73 sq m ESTIMATED GFR IS NOT dklv=4097) ACCURATE CREATININE CLEARANCE IN PREDICTING GLOMERULAR FILTRATION RATE. ESTIMATED GFR IS NOT APPLICABLE FOR DIALYSIS PATIENTS. [id number] 06:24:00 Test Item Value Reference Range Comments PHOSPHORUS (BEAKER) (test jijl=016) 3.3 mg/dL 2.3-4.7 BASIC METABOLIC [id number] 06:24:00 Test Item Value Reference Range Comments SODIUM (BEAKER) (test 145 meq/L 136-145 ziji=145) POTASSIUM (BEAKER) (test 3.8 meq/L 3.5-5.1 dkck=341) CHLORIDE (BEAKER) (test 110 meq/L 98-107 izzk=896) CO2 (BEAKER) (test 24 meq/L 22-29 yvgb=049) BLOOD UREA NITROGEN 21 mg/dL 7-21 (BEAKER) (test upzt=380) CREATININE (BEAKER) (test 1.39 mg/dL 0.57-1.25 lzzm=315) GLUCOSE RANDOM (BEAKER) 112 mg/dL 70-105 (test wrxp=147) CALCIUM (BEAKER) (test 8.9 mg/dL 8.4-10.2 kzrq=245) EGFR (BEAKER) (test 45 mL/min/1.73 sq m ESTIMATED GFR IS NOT atdi=3210) ACCURATE CREATININE CLEARANCE IN PREDICTING GLOMERULAR FILTRATION RATE. ESTIMATED GFR IS NOT APPLICABLE FOR DIALYSIS PATIENTS. [id number] 03:27:00 Test Item Value Reference Range Comments PROCALCITONIN (BEAKER) (test xyur=4086) 0.28 ng/mL <0.05 SEPSIS RISK (ng/mL)Low: 0.05-0.50Intermediate: 0.51-2.00High: & gt;=2.01LACTATE DEHYDROGENASE (LDH)2017-07-27 03:07:00 Test Item Value Reference Range Comments LACTATE DEHYDROGENASE (BEAKER) (test chmw=787) 615 U/L 125-220 HEPATIC FUNCTION [id number] 03:07:00 Test Item Value Reference Range Comments TOTAL PROTEIN (BEAKER) (test aanh=808) 6.8 gm/dL 6.0-8.3 ALBUMIN (BEAKER) (test vxsp=1862) 3.2 g/dL 3.5-5.0 BILIRUBIN TOTAL (BEAKER) (test vzih=897) 0.9 mg/dL 0.2-1.2 BILIRUBIN DIRECT (BEAKER) (test oicq=150) 0.5 mg/dL 0.1-0.5 ALKALINE PHOSPHATASE (BEAKER) (test pfjw=494) 58 U/L 40-150 AST (SGOT) (BEAKER) (test waxr=734) 21 U/L 5-34 ALT (SGPT) (BEAKER) (test pjpu=088) 15 U/L 6-55 CALCIUM, [id number] 02:57:00 Test Item Value Reference Range Comments CALCIUM IONIZED (BEAKER) (test mzql=551) 1.14 mmol/L 1.12-1.27 PH, BLOOD (BEAKER) (test jiiz=1136) 7.42 CBC W/PLT COUNT & AUTO [id number] 02:56:00 Test Item Value Reference Range Comments WHITE BLOOD CELL COUNT (BEAKER) (test vngx=295) 12.4 K/ L 3.5-10.5 RED BLOOD CELL COUNT (BEAKER) (test qnsa=910) 2.50 M/ L 3.93-5.22 HEMOGLOBIN (BEAKER) (test lirt=782) 7.4 GM/DL 11.2-15.7 HEMATOCRIT (BEAKER) (test zpdj=594) 24.7 % 34.1-44.9 MEAN CORPUSCULAR VOLUME (BEAKER) (test vazr=195) 98.8 fL 79.4-94.8 MEAN CORPUSCULAR HEMOGLOBIN (BEAKER) (test 29.6 pg 25.6-32.2 befn=809) MEAN CORPUSCULAR HEMOGLOBIN CONC (BEAKER) (test 30.0 GM/DL 32.2-35.5 nbax=915) RED CELL DISTRIBUTION WIDTH (BEAKER) (test 15.1 % 11.7-14.4 ioce=907) PLATELET COUNT (BEAKER) (test fhya=636) 233 K/CU MM 150-450 MEAN PLATELET VOLUME (BEAKER) (test spzb=457) 10.5 fL 9.4-12.3 NUCLEATED RED BLOOD CELLS (BEAKER) (test 0 /100 WBC 0-0 vufp=142) NEUTROPHILS RELATIVE PERCENT (BEAKER) (test 80 % wdgt=401) LYMPHOCYTES RELATIVE PERCENT (BEAKER) (test 9 % hldo=176) MONOCYTES RELATIVE PERCENT (BEAKER) (test 7 % lzqv=258) EOSINOPHILS RELATIVE PERCENT (BEAKER) (test 2 % lxjt=840) BASOPHILS RELATIVE PERCENT (BEAKER) (test 0 % cxnx=654) NEUTROPHILS ABSOLUTE COUNT (BEAKER) (test 9.94 K/ L 1.56-6.13 ltfl=100) LYMPHOCYTES ABSOLUTE COUNT (BEAKER) (test 1.15 K/ L 1.18-3.74 tuud=228) MONOCYTES ABSOLUTE COUNT (BEAKER) (test 0.90 K/ L 0.24-0.36 odmf=933) EOSINOPHILS ABSOLUTE COUNT (BEAKER) (test 0.24 K/ L 0.04-0.36 nwnp=458) BASOPHILS ABSOLUTE COUNT (BEAKER) (test 0.05 K/ L 0.01-0.08 eryf=454) IMMATURE GRANULOCYTES-RELATIVE PERCENT (BEAKER) 1 % 0-1 (test dwcp=4637) [id number] 01:29:00 Test Item Value Reference Range Comments PHOSPHORUS (BEAKER) (test dhdz=836) 3.5 mg/dL 2.3-4.7 BASIC METABOLIC [id number] 01:29:00 Test Item Value Reference Range Comments SODIUM (BEAKER) (test 145 meq/L 136-145 occr=257) POTASSIUM (BEAKER) (test 3.4 meq/L 3.5-5.1 gqos=662) CHLORIDE (BEAKER) (test 107 meq/L 98-107 srrq=770) CO2 (BEAKER) (test 26 meq/L 22-29 cmiw=073) BLOOD UREA NITROGEN 21 mg/dL 7-21 (BEAKER) (test htla=855) CREATININE (BEAKER) (test 1.47 mg/dL 0.57-1.25 tlcg=449) GLUCOSE RANDOM (BEAKER) 138 mg/dL 70-105 (test wbdl=011) CALCIUM (BEAKER) (test 9.1 mg/dL 8.4-10.2 kcpj=188) EGFR (BEAKER) (test 43 mL/min/1.73 sq m ESTIMATED GFR IS NOT bhlq=8999) ACCURATE CREATININE CLEARANCE IN PREDICTING GLOMERULAR FILTRATION RATE. ESTIMATED GFR IS NOT APPLICABLE FOR DIALYSIS PATIENTS. POCT-GLUCOSE [id number] 22:08:00 Test Item Value Reference Range Comments POC-GLUCOSE METER (BEAKER) 166 mg/dL 70-110 TESTED AT [facility] [address] [facility] (test tbkv=5083) [facility] [address] [id number] 21:22:00 Test Item Value Reference Range Comments MAGNESIUM (BEAKER) (test qdjv=789) 2.2 mg/dL 1.6-2.6 [id number] 19:23:00 Test Item Value Reference Range Comments PHOSPHORUS (BEAKER) (test hbll=955) 2.9 mg/dL 2.3-4.7 BASIC METABOLIC [id number] 19:23:00 Test Item Value Reference Range Comments SODIUM (BEAKER) (test 145 meq/L 136-145 fzyz=978) POTASSIUM (BEAKER) (test 3.6 meq/L 3.5-5.1 styq=094) CHLORIDE (BEAKER) (test 109 meq/L 98-107 cygk=990) CO2 (BEAKER) (test 24 meq/L 22-29 uory=749) BLOOD UREA NITROGEN 22 mg/dL 7-21 (BEAKER) (test kuzb=278) CREATININE (BEAKER) (test 1.48 mg/dL 0.57-1.25 kohp=765) GLUCOSE RANDOM (BEAKER) 150 mg/dL 70-105 (test rkgy=300) CALCIUM (BEAKER) (test 9.0 mg/dL 8.4-10.2 tmku=018) EGFR (BEAKER) (test 42 mL/min/1.73 sq m ESTIMATED GFR IS NOT klyx=4341) ACCURATE CREATININE CLEARANCE IN PREDICTING GLOMERULAR FILTRATION RATE. ESTIMATED GFR IS NOT APPLICABLE FOR DIALYSIS PATIENTS. POCT-GLUCOSE [id number] 18:13:00 Test Item Value Reference Range Comments POC-GLUCOSE METER (BEAKER) 188 mg/dL 70-110 TESTED AT [facility] [address] [facility] (test cbym=5373) [facility] [address] [id number] 13:12:00 Test Item Value Reference Range Comments PHOSPHORUS (BEAKER) (test uejh=395) 2.7 mg/dL 2.3-4.7 BASIC METABOLIC [id number] 13:12:00 Test Item Value Reference Range Comments SODIUM (BEAKER) (test 144 meq/L 136-145 rpkb=836) POTASSIUM (BEAKER) (test 3.5 meq/L 3.5-5.1 hnft=843) CHLORIDE (BEAKER) (test 108 meq/L 98-107 tdhs=413) CO2 (BEAKER) (test 26 meq/L 22-29 tshu=136) BLOOD UREA NITROGEN 23 mg/dL 7-21 (BEAKER) (test owam=076) CREATININE (BEAKER) (test 1.45 mg/dL 0.57-1.25 itfu=556) GLUCOSE RANDOM (BEAKER) 183 mg/dL 70-105 (test yeje=532) CALCIUM (BEAKER) (test 8.5 mg/dL 8.4-10.2 qosd=689) EGFR (BEAKER) (test 43 mL/min/1.73 sq m ESTIMATED GFR IS NOT adxb=6669) ACCURATE CREATININE CLEARANCE IN PREDICTING GLOMERULAR FILTRATION RATE. ESTIMATED GFR IS NOT APPLICABLE FOR DIALYSIS PATIENTS. POCT-GLUCOSE [id number] 12:07:00 Test Item Value Reference Range Comments POC-GLUCOSE METER (BEAKER) 203 mg/dL 70-110 TESTED AT [facility] [address] [facility] (test ufor=8775) [facility] [address] [id number] 09:50:00 Test Item Value Reference Range Comments MAGNESIUM (BEAKER) (test gzau=795) 2.6 mg/dL 1.6-2.6 RAD, CHEST, 1 VIEW, NON [id number] 08:06:00Reason for exam:->acute respiratory insufficiencyShould this be [...] Location: [facility] Reading Room POCT-GLUCOSE [id number] 07:58:00 Test Item Value Reference Range Comments POC-GLUCOSE METER (BEAKER) 176 mg/dL 70-110 TESTED AT [facility] [address] [place] [place] [address] (test effp=8099) [facility] [address] OXYGEN SATURATION, [id number] 05:23:00 Test Item Value Reference Range Comments O2 SATURATION (MEASURED) (BEAKER) (test dlnt=0588) 64.5 % calibrationBLOOD GAS, [id number] 04:43:00 Test Item Value Reference Range Comments PH ARTERIAL (BEAKER) (test xggn=965) 7.44 7.35-7.45 PCO2 ARTERIAL (BEAKER) (test riod=683) 44 mmHg 35-45 PO2 ARTERIAL (BEAKER) (test fjeo=563) 127 mmHg 80-90 O2 SATURATION ARTERIAL (BEAKER) (test iimh=640) 98.6 % 96.0-97.0 HCO3 ARTERIAL (BEAKER) (test vxnh=371) 29 mmol/L 21-29 BASE EXCESS ARTERIAL (BEAKER) (test gtah=985) 4.6 mmol/L -2.0-3.0 PATIENT TEMPERATURE (BEAKER) (test copf=1475) 37.3 C FIO2 (BEAKER) (test zwlu=8973) 100.0 % [id number] 04:31:00 Test Item Value Reference Range Comments PHOSPHORUS (BEAKER) (test shgn=308) 3.4 mg/dL 2.3-4.7 [id number] 04:31:00 Test Item Value Reference Range Comments MAGNESIUM (BEAKER) (test rsxv=172) 2.2 mg/dL 1.6-2.6 BASIC METABOLIC [id number] 04:31:00 Test Item Value Reference Range Comments SODIUM (BEAKER) (test 146 meq/L 136-145 jdmu=100) POTASSIUM (BEAKER) (test 3.7 meq/L 3.5-5.1 azcf=061) CHLORIDE (BEAKER) (test 108 meq/L 98-107 wqgp=878) CO2 (BEAKER) (test 28 meq/L 22-29 zwsm=026) BLOOD UREA NITROGEN 23 mg/dL 7-21 (BEAKER) (test hasu=615) CREATININE (BEAKER) (test 1.51 mg/dL 0.57-1.25 qjga=073) GLUCOSE RANDOM (BEAKER) 151 mg/dL 70-105 (test tnbh=362) CALCIUM (BEAKER) (test 9.4 mg/dL 8.4-10.2 vdgm=757) EGFR (BEAKER) (test 41 mL/min/1.73 sq m ESTIMATED GFR IS NOT qglv=0659) ACCURATE CREATININE CLEARANCE IN PREDICTING GLOMERULAR FILTRATION RATE. ESTIMATED GFR IS NOT APPLICABLE FOR DIALYSIS PATIENTS. HEPATIC FUNCTION [id number] 04:31:00 Test Item Value Reference Range Comments TOTAL PROTEIN (BEAKER) (test spfm=629) 6.6 gm/dL 6.0-8.3 ALBUMIN (BEAKER) (test dnps=2210) 3.2 g/dL 3.5-5.0 BILIRUBIN TOTAL (BEAKER) (test yrfl=925) 1.0 mg/dL 0.2-1.2 BILIRUBIN DIRECT (BEAKER) (test rumr=337) 0.5 mg/dL 0.1-0.5 ALKALINE PHOSPHATASE (BEAKER) (test qfmt=798) 60 U/L 40-150 AST (SGOT) (BEAKER) (test cnbt=888) 25 U/L 5-34 ALT (SGPT) (BEAKER) (test hlsn=991) 18 U/L 6-55 COMPREHENSIVE METABOLIC [id number] 04:31:00 Test Item Value Reference Range Comments TOTAL PROTEIN (BEAKER) 6.6 gm/dL 6.0-8.3 (test acfd=934) ALBUMIN (BEAKER) (test 3.2 g/dL 3.5-5.0 mtme=0133) ALKALINE PHOSPHATASE 60 U/L 40-150 (BEAKER) (test tude=415) BILIRUBIN TOTAL (BEAKER) 1.0 mg/dL 0.2-1.2 (test msgr=789) SODIUM (BEAKER) (test 146 meq/L 136-145 snab=410) POTASSIUM (BEAKER) (test 3.7 meq/L 3.5-5.1 lznt=742) CHLORIDE (BEAKER) (test 108 meq/L 98-107 tvjx=955) CO2 (BEAKER) (test 28 meq/L 22-29 ffxf=079) BLOOD UREA NITROGEN 23 mg/dL 7-21 (BEAKER) (test nvmn=599) CREATININE (BEAKER) (test 1.51 mg/dL 0.57-1.25 apfm=324) GLUCOSE RANDOM (BEAKER) 151 mg/dL 70-105 (test iqml=542) CALCIUM (BEAKER) (test 9.4 mg/dL 8.4-10.2 ritb=301) AST (SGOT) (BEAKER) (test 25 U/L 5-34 dsoe=880) ALT (SGPT) (BEAKER) (test 18 U/L 6-55 zsli=122) EGFR (BEAKER) (test 41 mL/min/1.73 sq m ESTIMATED GFR IS NOT lkwm=0850) ACCURATE CREATININE CLEARANCE IN PREDICTING GLOMERULAR FILTRATION RATE. ESTIMATED GFR IS NOT APPLICABLE FOR DIALYSIS PATIENTS. LACTATE DEHYDROGENASE (LDH)2017-07-26 04:31:00 Test Item Value Reference Range Comments LACTATE DEHYDROGENASE (BEAKER) (test oxgq=160) 661 U/L 125-220 CALCIUM, [id number] 04:23:00 Test Item Value Reference Range Comments CALCIUM IONIZED (BEAKER) (test ebqa=042) 1.15 mmol/L 1.12-1.27 PH, BLOOD (BEAKER) (test kapi=7247) 7.47 CBC W/PLT COUNT & AUTO [id number] 04:20:00 Test Item Value Reference Range Comments WHITE BLOOD CELL COUNT (BEAKER) (test uyyt=174) 13.0 K/ L 3.5-10.5 RED BLOOD CELL COUNT (BEAKER) (test dlwk=382) 2.56 M/ L 3.93-5.22 HEMOGLOBIN (BEAKER) (test bnpe=960) 7.6 GM/DL 11.2-15.7 HEMATOCRIT (BEAKER) (test tenl=387) 25.4 % 34.1-44.9 MEAN CORPUSCULAR VOLUME (BEAKER) (test bhte=978) 99.2 fL 79.4-94.8 MEAN CORPUSCULAR HEMOGLOBIN (BEAKER) (test 29.7 pg 25.6-32.2 sgxq=200) MEAN CORPUSCULAR HEMOGLOBIN CONC (BEAKER) (test 29.9 GM/DL 32.2-35.5 iiyy=646) RED CELL DISTRIBUTION WIDTH (BEAKER) (test 15.0 % 11.7-14.4 wsqs=417) PLATELET COUNT (BEAKER) (test abxz=474) 161 K/CU MM 150-450 MEAN PLATELET VOLUME (BEAKER) (test xbod=650) 11.0 fL 9.4-12.3 NUCLEATED RED BLOOD CELLS (BEAKER) (test 0 /100 WBC 0-0 tvak=326) NEUTROPHILS RELATIVE PERCENT (BEAKER) (test 79 % cdog=405) LYMPHOCYTES RELATIVE PERCENT (BEAKER) (test 10 % symx=389) MONOCYTES RELATIVE PERCENT (BEAKER) (test 7 % ovnu=156) EOSINOPHILS RELATIVE PERCENT (BEAKER) (test 2 % ufja=318) BASOPHILS RELATIVE PERCENT (BEAKER) (test 1 % mkrv=326) NEUTROPHILS ABSOLUTE COUNT (BEAKER) (test 10.33 K/ L 1.56-6.13 ntig=469) LYMPHOCYTES ABSOLUTE COUNT (BEAKER) (test 1.35 K/ L 1.18-3.74 zijj=702) MONOCYTES ABSOLUTE COUNT (BEAKER) (test 0.96 K/ L 0.24-0.36 vitx=725) EOSINOPHILS ABSOLUTE COUNT (BEAKER) (test 0.19 K/ L 0.04-0.36 hyjl=953) BASOPHILS ABSOLUTE COUNT (BEAKER) (test 0.07 K/ L 0.01-0.08 ymsf=999) IMMATURE GRANULOCYTES-RELATIVE PERCENT (BEAKER) 1 % 0-1 (test skdj=4959) [id number] 21:19:00 Test Item Value Reference Range Comments PHOSPHORUS (BEAKER) (test ovpe=462) 4.4 mg/dL 2.3-4.7 [id number] 21:19:00 Test Item Value Reference Range Comments MAGNESIUM (BEAKER) (test gesv=337) 2.1 mg/dL 1.6-2.6 BASIC METABOLIC [id number] 21:19:00 Test Item Value Reference Range Comments SODIUM (BEAKER) (test 146 meq/L 136-145 vvyl=805) POTASSIUM (BEAKER) (test 3.9 meq/L 3.5-5.1 ojth=838) CHLORIDE (BEAKER) (test 108 meq/L 98-107 ihag=149) CO2 (BEAKER) (test 27 meq/L 22-29 ybyp=728) BLOOD UREA NITROGEN 24 mg/dL 7-21 (BEAKER) (test buqt=575) CREATININE (BEAKER) (test 1.64 mg/dL 0.57-1.25 ljgf=186) GLUCOSE RANDOM (BEAKER) 120 mg/dL 70-105 (test itgm=701) CALCIUM (BEAKER) (test 9.5 mg/dL 8.4-10.2 zubx=725) EGFR (BEAKER) (test 38 mL/min/1.73 sq m ESTIMATED GFR IS NOT oocu=5577) ACCURATE CREATININE CLEARANCE IN PREDICTING GLOMERULAR FILTRATION RATE. ESTIMATED GFR IS NOT APPLICABLE FOR DIALYSIS PATIENTS. POCT-GLUCOSE [id number] 18:36:00 Test Item Value Reference Range Comments POC-GLUCOSE METER (BEAKER) 129 mg/dL 70-110 TESTED AT [address] (test zilk=9218) [place] [address] POCT-GLUCOSE [id number] 16:19:00 Test Item Value Reference Range Comments POC-GLUCOSE METER (BEAKER) 132 mg/dL 70-110 TESTED AT [address] (test onhy=8695) [place] [address] [id number] 13:57:00 Test Item Value Reference Range Comments PHOSPHORUS (BEAKER) (test zaei=309) 4.2 mg/dL 2.3-4.7 BASIC METABOLIC [id number] 13:57:00 Test Item Value Reference Range Comments SODIUM (BEAKER) (test 147 meq/L 136-145 asil=530) POTASSIUM (BEAKER) (test 3.7 meq/L 3.5-5.1 htzg=644) CHLORIDE (BEAKER) (test 110 meq/L 98-107 zwcf=297) CO2 (BEAKER) (test 25 meq/L 22-29 swmd=619) BLOOD UREA NITROGEN 23 mg/dL 7-21 (BEAKER) (test nzqo=463) CREATININE (BEAKER) (test 1.58 mg/dL 0.57-1.25 sval=685) GLUCOSE RANDOM (BEAKER) 129 mg/dL 70-105 (test kcrp=183) CALCIUM (BEAKER) (test 9.2 mg/dL 8.4-10.2 xvvr=062) EGFR (BEAKER) (test 39 mL/min/1.73 sq m ESTIMATED GFR IS NOT egze=1664) ACCURATE CREATININE CLEARANCE IN PREDICTING GLOMERULAR FILTRATION RATE. ESTIMATED GFR IS NOT APPLICABLE FOR DIALYSIS PATIENTS. BLOOD GAS, [id number] 13:48:00 Test Item Value Reference Range Comments PH ARTERIAL (BEAKER) (test huuc=037) 7.42 7.35-7.45 PCO2 ARTERIAL (BEAKER) (test bqgb=859) 47 mmHg 35-45 PO2 ARTERIAL (BEAKER) (test zvfh=410) 202 mmHg 80-90 O2 SATURATION ARTERIAL (BEAKER) (test leud=881) 99.4 % 96.0-97.0 HCO3 ARTERIAL (BEAKER) (test iysc=975) 29 mmol/L 21-29 BASE EXCESS ARTERIAL (BEAKER) (test gqcn=463) 4.4 mmol/L -2.0-3.0 PATIENT TEMPERATURE (BEAKER) (test inrz=9731) 37.6 C FIO2 (BEAKER) (test cudg=1954) 100.0 % POCT-GLUCOSE [id number] 13:31:00 Test Item Value Reference Range Comments POC-GLUCOSE METER (BEAKER) 128 mg/dL 70-110 TESTED AT [address] (test sdhm=3472) [place] [id number] POCT-GLUCOSE [id number] 11:02:00 Test Item Value Reference Range Comments POC-GLUCOSE METER (BEAKER) 137 mg/dL 70-110 TESTED AT [address] (test wosb=9663) [place] [id number] POCT-GLUCOSE [id number] 11:02:00 Test Item Value Reference Range Comments POC-GLUCOSE METER (BEAKER) 141 mg/dL 70-110 TESTED AT [address] (test dghf=7149) [place] [id number] POCT-GLUCOSE [id number] 11:02:00 Test Item Value Reference Range Comments POC-GLUCOSE METER (BEAKER) 104 mg/dL 70-110 TESTED AT [address] (test ssan=3523) [place] [id number] BLOOD [id number] 11:00:00 Test Item Value Reference Range Comments CULTURE (BEAKER) (test mbqe=2159) No growth in 5 days BLOOD [id number] 11:00:00 Test Item Value Reference Range Comments CULTURE (BEAKER) (test uvhv=3375) No growth in 5 days CBC W/PLT COUNT & AUTO [id number] 08:54:00 Test Item Value Reference Range Comments WHITE BLOOD CELL COUNT (BEAKER) (test zusv=865) 13.8 K/ L 3.5-10.5 RED BLOOD CELL COUNT (BEAKER) (test ikyk=701) 2.54 M/ L 3.93-5.22 HEMOGLOBIN (BEAKER) (test jlmf=615) 7.7 GM/DL 11.2-15.7 HEMATOCRIT (BEAKER) (test rfll=319) 25.2 % 34.1-44.9 MEAN CORPUSCULAR VOLUME (BEAKER) (test vpbm=052) 99.2 fL 79.4-94.8 MEAN CORPUSCULAR HEMOGLOBIN (BEAKER) (test 30.3 pg 25.6-32.2 jttm=262) MEAN CORPUSCULAR HEMOGLOBIN CONC (BEAKER) (test 30.6 GM/DL 32.2-35.5 fhzu=406) RED CELL DISTRIBUTION WIDTH (BEAKER) (test 15.2 % 11.7-14.4 dzvs=118) PLATELET COUNT (BEAKER) (test dtel=845) 127 K/CU MM 150-450 MEAN PLATELET VOLUME (BEAKER) (test sahg=281) 10.6 fL 9.4-12.3 NUCLEATED RED BLOOD CELLS (BEAKER) (test 0 /100 WBC 0-0 pfcs=602) NEUTROPHILS RELATIVE PERCENT (BEAKER) (test 81 % ghur=614) LYMPHOCYTES RELATIVE PERCENT (BEAKER) (test 8 % tkse=476) MONOCYTES RELATIVE PERCENT (BEAKER) (test 9 % lokp=675) EOSINOPHILS RELATIVE PERCENT (BEAKER) (test 1 % lrqz=499) BASOPHILS RELATIVE PERCENT (BEAKER) (test 0 % baxr=473) NEUTROPHILS ABSOLUTE COUNT (BEAKER) (test 11.11 K/ L 1.56-6.13 xjwu=382) LYMPHOCYTES ABSOLUTE COUNT (BEAKER) (test 1.14 K/ L 1.18-3.74 riwh=716) MONOCYTES ABSOLUTE COUNT (BEAKER) (test 1.20 K/ L 0.24-0.36 ozxh=055) EOSINOPHILS ABSOLUTE COUNT (BEAKER) (test 0.15 K/ L 0.04-0.36 sxgi=730) BASOPHILS ABSOLUTE COUNT (BEAKER) (test 0.04 K/ L 0.01-0.08 sprw=385) IMMATURE GRANULOCYTES-RELATIVE PERCENT (BEAKER) 1 % 0-1 (test jyim=4806) BLOOD GAS, [id number] 08:40:00 Test Item Value Reference Range Comments PH ARTERIAL (BEAKER) (test awzg=702) 7.43 7.35-7.45 PCO2 ARTERIAL (BEAKER) (test cjhm=906) 35 mmHg 35-45 PO2 ARTERIAL (BEAKER) (test rnbt=034) 82 mmHg 80-90 O2 SATURATION ARTERIAL (BEAKER) (test ceax=884) 95.7 % 96.0-97.0 HCO3 ARTERIAL (BEAKER) (test guat=238) 22 mmol/L 21-29 BASE EXCESS ARTERIAL (BEAKER) (test mpaa=437) -1.3 mmol/L -2.0-3.0 PATIENT TEMPERATURE (BEAKER) (test feht=9815) 38.3 C FIO2 (BEAKER) (test fgmd=1156) 40.0 % [id number] 06:59:00 Test Item Value Reference Range Comments PHOSPHORUS (BEAKER) (test dubi=102) 3.4 mg/dL 2.3-4.7 [id number] 06:59:00 Test Item Value Reference Range Comments MAGNESIUM (BEAKER) (test yssx=040) 2.0 mg/dL 1.6-2.6 BASIC METABOLIC [id number] 06:59:00 Test Item Value Reference Range Comments SODIUM (BEAKER) (test 147 meq/L 136-145 kkvj=822) POTASSIUM (BEAKER) (test 3.7 meq/L 3.5-5.1 nptc=185) CHLORIDE (BEAKER) (test 111 meq/L 98-107 pzcp=214) CO2 (BEAKER) (test 23 meq/L 22-29 ygxt=026) BLOOD UREA NITROGEN 24 mg/dL 7-21 (BEAKER) (test ynww=736) CREATININE (BEAKER) (test 1.57 mg/dL 0.57-1.25 oesi=881) GLUCOSE RANDOM (BEAKER) 121 mg/dL 70-105 (test gzod=575) CALCIUM (BEAKER) (test 9.0 mg/dL 8.4-10.2 glhz=986) EGFR (BEAKER) (test 39 mL/min/1.73 sq m ESTIMATED GFR IS NOT rxwi=6755) ACCURATE CREATININE CLEARANCE IN PREDICTING GLOMERULAR FILTRATION RATE. ESTIMATED GFR IS NOT APPLICABLE FOR DIALYSIS PATIENTS. POCT-GLUCOSE [id number] 06:27:00 Test Item Value Reference Range Comments POC-GLUCOSE METER (BEAKER) 95 mg/dL 70-110 TESTED AT [facility] [address] [facility] (test ksgc=2681) [facility] [address] POCT-GLUCOSE [id number] 06:04:00 Test Item Value Reference Range Comments POC-GLUCOSE METER (BEAKER) 128 mg/dL 70-110 TESTED AT [address] (test wlob=5273) [place] [id number] 05:36:00 Test Item Value Reference Range Comments PHOSPHORUS (BEAKER) (test vrvr=737) 3.4 mg/dL 2.3-4.7 BASIC METABOLIC [id number] 05:36:00 Test Item Value Reference Range Comments SODIUM (BEAKER) (test 146 meq/L 136-145 geqi=571) POTASSIUM (BEAKER) (test 3.6 meq/L 3.5-5.1 tunb=319) CHLORIDE (BEAKER) (test 110 meq/L 98-107 wuok=395) CO2 (BEAKER) (test 25 meq/L 22-29 uuhi=127) BLOOD UREA NITROGEN 25 mg/dL 7-21 (BEAKER) (test luzl=638) CREATININE (BEAKER) (test 1.58 mg/dL 0.57-1.25 rcew=596) GLUCOSE RANDOM (BEAKER) 114 mg/dL 70-105 (test noad=037) CALCIUM (BEAKER) (test 8.9 mg/dL 8.4-10.2 etfj=033) EGFR (BEAKER) (test 39 mL/min/1.73 sq m ESTIMATED GFR IS NOT grgd=2231) ACCURATE CREATININE CLEARANCE IN PREDICTING GLOMERULAR FILTRATION RATE. ESTIMATED GFR IS NOT APPLICABLE FOR DIALYSIS PATIENTS. HEPATIC FUNCTION [id number] 05:36:00 Test Item Value Reference Range Comments TOTAL PROTEIN (BEAKER) (test psrr=140) 6.3 gm/dL 6.0-8.3 ALBUMIN (BEAKER) (test hvfv=2066) 3.1 g/dL 3.5-5.0 BILIRUBIN TOTAL (BEAKER) (test caiv=589) 1.1 mg/dL 0.2-1.2 BILIRUBIN DIRECT (BEAKER) (test vkdy=244) 0.7 mg/dL 0.1-0.5 ALKALINE PHOSPHATASE (BEAKER) (test dacm=383) 54 U/L 40-150 AST (SGOT) (BEAKER) (test jqrk=659) 23 U/L 5-34 ALT (SGPT) (BEAKER) (test irai=342) 17 U/L 6-55 LACTATE DEHYDROGENASE (LDH)2017-07-25 05:36:00 Test Item Value Reference Range Comments LACTATE DEHYDROGENASE (BEAKER) (test lwpf=800) 695 U/L 125-220 POCT-GLUCOSE [id number] 05:24:00 Test Item Value Reference Range Comments POC-GLUCOSE METER (BEAKER) 102 mg/dL 70-110 TESTED AT [address] (test vpoo=4096) [facility] [address] RAD, CHEST, 1 VIEW, NON [id number] 04:43:00Reason for exam:-> impellaShould this be performed at the bedside?->YesFINAL REPORT Chest one view. Clinical history: impella Comparison: Chest radiograph 07/24/17 Technique: A single frontal view of the chest was obtained. Findings: Cardiomediastinal contours are unchanged. Endotracheal and feeding tubes as well as a right IJ [place]-Jagdeep catheter are unchanged in position. There are patchy bibasilar opacities which may represent atelectasis and/or pneumonia. There is mild elevation of the left hemidiaphragm. There is no definite pleural effusionor pneumothorax. Signed: [facility] Verified Date/Time: 07/25/2017 04:43:27 ReadingLocation: [facility] B1 C013T Transitional Reading Room [id number] 00:51:00 Test Item Value Reference Range Comments PHOSPHORUS (BEAKER) (test pbmm=399) 3.4 mg/dL 2.3-4.7 BASIC METABOLIC [id number] 00:51:00 Test Item Value Reference Range Comments SODIUM (BEAKER) (test 146 meq/L 136-145 snjw=797) POTASSIUM (BEAKER) (test 4.0 meq/L 3.5-5.1 mair=469) CHLORIDE (BEAKER) (test 110 meq/L 98-107 bznp=975) CO2 (BEAKER) (test 26 meq/L 22-29 qitu=398) BLOOD UREA NITROGEN 26 mg/dL 7-21 (BEAKER) (test xvay=647) CREATININE (BEAKER) (test 1.53 mg/dL 0.57-1.25 lqnd=806) GLUCOSE RANDOM (BEAKER) 105 mg/dL 70-105 (test uemn=134) CALCIUM (BEAKER) (test 8.8 mg/dL 8.4-10.2 atax=134) EGFR (BEAKER) (test 41 mL/min/1.73 sq m ESTIMATED GFR IS NOT zvqu=3424) ACCURATE CREATININE CLEARANCE IN PREDICTING GLOMERULAR FILTRATION RATE. ESTIMATED GFR IS NOT APPLICABLE FOR DIALYSIS PATIENTS. POCT-GLUCOSE [id number] 00:32:00 Test Item Value Reference Range Comments POC-GLUCOSE METER (BEAKER) 119 mg/dL 70-110 TESTED AT [address] (test lekj=9022) [place] [id number] POCT-GLUCOSE [id number] 00:27:00 Test Item Value Reference Range Comments POC-GLUCOSE METER (BEAKER) 114 mg/dL 70-110 TESTED AT [address] (test ecuo=6508) [place] [id number] POCT-GLUCOSE [id number] 23:58:00 Test Item Value Reference Range Comments POC-GLUCOSE METER (BEAKER) 117 mg/dL 70-110 TESTED AT [address] (test uhoh=6882) [place] [address] [id number] 21:24:00 Test Item Value Reference Range Comments MAGNESIUM (BEAKER) (test hiyj=026) 2.0 mg/dL 1.6-2.6 POCT-GLUCOSE [id number] 20:24:00 Test Item Value Reference Range Comments POC-GLUCOSE METER (BEAKER) 130 mg/dL 70-110 TESTED AT [facility] [address] (test lbjv=1364) [facility] [address] [id number] 19:20:00 Test Item Value Reference Range Comments POTASSIUM (BEAKER) (test nofu=076) 3.6 meq/L 3.5-5.1 [id number] 19:20:00 Test Item Value Reference Range Comments GLUCOSE RANDOM (BEAKER) (test zjta=107) 168 mg/dL 70-105 [id number] 18:01:00 Test Item Value Reference Range Comments PHOSPHORUS (BEAKER) (test vgaw=192) 3.7 mg/dL 2.3-4.7 BASIC METABOLIC [id number] 18:01:00 Test Item Value Reference Range Comments SODIUM (BEAKER) (test 145 meq/L 136-145 wvih=999) POTASSIUM (BEAKER) (test 3.9 meq/L 3.5-5.1 kkgn=220) CHLORIDE (BEAKER) (test 109 meq/L 98-107 yrnu=781) CO2 (BEAKER) (test 27 meq/L 22-29 ddvu=996) BLOOD UREA NITROGEN 26 mg/dL 7-21 (BEAKER) (test qpvv=171) CREATININE (BEAKER) (test 1.47 mg/dL 0.57-1.25 oyth=576) GLUCOSE RANDOM (BEAKER) 210 mg/dL 70-105 (test qiax=571) CALCIUM (BEAKER) (test 8.5 mg/dL 8.4-10.2 dvlk=677) EGFR (BEAKER) (test 43 mL/min/1.73 sq m ESTIMATED GFR IS NOT xhtz=2474) ACCURATE CREATININE CLEARANCE IN PREDICTING GLOMERULAR FILTRATION RATE. ESTIMATED GFR IS NOT APPLICABLE FOR DIALYSIS PATIENTS. GLUCOSE-STAT [id number] 17:14:00 Test Item Value Reference Range Comments GLUCOSE RANDOM (BEAKER) (test qjxp=480) 208 mg/dL 70-110 BLOOD GAS, [id number] 17:13:00 Test Item Value Reference Range Comments PH ARTERIAL (BEAKER) (test ieer=294) 7.44 7.35-7.45 PCO2 ARTERIAL (BEAKER) (test sgsj=704) 43 mmHg 35-45 PO2 ARTERIAL (BEAKER) (test nmck=127) 58 mmHg 80-90 O2 SATURATION ARTERIAL (BEAKER) (test zrdc=689) 90.8 % 96.0-97.0 HCO3 ARTERIAL (BEAKER) (test ugfv=571) 28 mmol/L 21-29 BASE EXCESS ARTERIAL (BEAKER) (test tqzv=137) 3.9 mmol/L -2.0-3.0 PATIENT TEMPERATURE (BEAKER) (test wwni=9568) 37.0 C FIO2 (BEAKER) (test hgwr=1511) 100.0 % RAD, CHEST, 1 VIEW, NON [id number] 14:00:00Reason for exam:->post intubationShould this be performed at the bedside?->YesFINAL REPORT AP chest. HISTORY: Endotracheal tube COMPARISON: 07/24/2017 IMPRESSION:Endotracheal tube projects deep in the trachea, approximately 1-2 cm above the level of the toro. Cardiomegaly similar to previous. Worsening aeration at the left lung base. Mild pulmonary vascular congestion. No pneumothorax. Signed: Mitchel Canela MDRephawthorn [facility] Verified Date/Time: 07/24/2017 14:00:17 Reading Location: [place] [id number] CT Body Reading Room [id number] 13:40:00 Test Item Value Reference Range Comments PHOSPHORUS (BEAKER) (test meav=558) 4.3 mg/dL 2.3-4.7 [id number] 13:40:00 Test Item Value Reference Range Comments MAGNESIUM (BEAKER) (test gxdw=925) 2.0 mg/dL 1.6-2.6 BASIC METABOLIC [id number] 13:40:00 Test Item Value Reference Range Comments SODIUM (BEAKER) (test 145 meq/L 136-145 npoi=398) POTASSIUM (BEAKER) (test 3.9 meq/L 3.5-5.1 hqlg=030) CHLORIDE (BEAKER) (test 108 meq/L 98-107 qvrz=621) CO2 (BEAKER) (test 24 meq/L 22-29 pvio=882) BLOOD UREA NITROGEN 28 mg/dL 7-21 (BEAKER) (test dtmh=138) CREATININE (BEAKER) (test 1.43 mg/dL 0.57-1.25 rfev=974) GLUCOSE RANDOM (BEAKER) 206 mg/dL 70-105 (test scvt=539) CALCIUM (BEAKER) (test 8.5 mg/dL 8.4-10.2 beww=034) EGFR (BEAKER) (test 44 mL/min/1.73 sq m ESTIMATED GFR IS NOT klrv=8275) ACCURATE CREATININE CLEARANCE IN PREDICTING GLOMERULAR FILTRATION RATE. ESTIMATED GFR IS NOT APPLICABLE FOR DIALYSIS PATIENTS. LACTIC ACID, ARTERIAL, WHOLE [id number] 13:36:00 Test Item Value Reference Range Comments LACTATE BLOOD ARTERIAL (2) (BEAKER) (test 0.7 mmol/L 0.5-2.2 llgt=2759) Effective 08/06/2015: Units/Reference Range ChangeNew: 0.5-2.2 mmol/L Previous: 5 -20 mg/dLCBC W/PLT COUNT & AUTO [id number] 13:24:00 Test Item Value Reference Range Comments WHITE BLOOD CELL COUNT (BEAKER) (test tpur=302) 10.5 K/ L 3.5-10.5 RED BLOOD CELL COUNT (BEAKER) (test gyeb=333) 2.70 M/ L 3.93-5.22 HEMOGLOBIN (BEAKER) (test rzmo=245) 8.1 GM/DL 11.2-15.7 HEMATOCRIT (BEAKER) (test tnlu=145) 27.0 % 34.1-44.9 MEAN CORPUSCULAR VOLUME (BEAKER) (test jgyo=746) 100.0 fL 79.4-94.8 MEAN CORPUSCULAR HEMOGLOBIN (BEAKER) (test 30.0 pg 25.6-32.2 srtz=930) MEAN CORPUSCULAR HEMOGLOBIN CONC (BEAKER) (test 30.0 GM/DL 32.2-35.5 vpjt=262) RED CELL DISTRIBUTION WIDTH (BEAKER) (test 14.9 % 11.7-14.4 eute=573) PLATELET COUNT (BEAKER) (test akqw=405) 117 K/CU MM 150-450 MEAN PLATELET VOLUME (BEAKER) (test cfew=397) 10.9 fL 9.4-12.3 NUCLEATED RED BLOOD CELLS (BEAKER) (test 0 /100 WBC 0-0 wboe=483) NEUTROPHILS RELATIVE PERCENT (BEAKER) (test 78 % mdyj=747) LYMPHOCYTES RELATIVE PERCENT (BEAKER) (test 10 % vpbq=173) MONOCYTES RELATIVE PERCENT (BEAKER) (test 10 % auqh=481) EOSINOPHILS RELATIVE PERCENT (BEAKER) (test 1 % xkmt=354) BASOPHILS RELATIVE PERCENT (BEAKER) (test 0 % iuzj=437) NEUTROPHILS ABSOLUTE COUNT (BEAKER) (test 8.20 K/ L 1.56-6.13 tdqk=962) LYMPHOCYTES ABSOLUTE COUNT (BEAKER) (test 1.00 K/ L 1.18-3.74 ttcb=528) MONOCYTES ABSOLUTE COUNT (BEAKER) (test 1.06 K/ L 0.24-0.36 peuh=176) EOSINOPHILS ABSOLUTE COUNT (BEAKER) (test 0.09 K/ L 0.04-0.36 eowx=981) BASOPHILS ABSOLUTE COUNT (BEAKER) (test 0.04 K/ L 0.01-0.08 jwuh=741) IMMATURE GRANULOCYTES-RELATIVE PERCENT (BEAKER) 1 % 0-1 (test gsxi=6075) OXYGEN SATURATION, [id number] 13:08:00 Test Item Value Reference Range Comments O2 SATURATION (MEASURED) (BEAKER) (test iaiz=5800) 65.1 % PA catheter tipBLOOD GAS, [id number] 13:08:00 Test Item Value Reference Range Comments PH ARTERIAL (BEAKER) (test hbhi=198) 7.42 7.35-7.45 PCO2 ARTERIAL (BEAKER) (test mnjn=643) 42 mmHg 35-45 PO2 ARTERIAL (BEAKER) (test rjke=932) 239 mmHg 80-90 O2 SATURATION ARTERIAL (BEAKER) (test svmd=439) 99.6 % 96.0-97.0 HCO3 ARTERIAL (BEAKER) (test qrmc=402) 27 mmol/L 21-29 BASE EXCESS ARTERIAL (BEAKER) (test qlwr=026) 2.1 mmol/L -2.0-3.0 PATIENT TEMPERATURE (BEAKER) (test fgkv=3117) 36.6 C FIO2 (BEAKER) (test ysyg=7423) 100.0 % GLUCOSE-STAT [id number] 13:08:00 Test Item Value Reference Range Comments GLUCOSE RANDOM (BEAKER) (test xskg=593) 194 mg/dL 70-110 HGB/HCT (H&H) - STAT [id number] 13:08:00 Test Item Value Reference Range Comments HEMOGLOBIN (BEAKER) (test pgmg=890) 8.8 g/dL 12.0-15.0 HEMATOCRIT (BEAKER) (test ihso=928) 26.0 % 36.0-45.0 CALCIUM, [id number] 13:08:00 Test Item Value Reference Range Comments CALCIUM IONIZED (BEAKER) (test epjf=173) 1.08 mmol/L 1.12-1.27 PH, BLOOD (BEAKER) (test ukjf=1257) 7.41 SODIUM NA-STAT [id number] 13:07:00 Test Item Value Reference Range Comments SODIUM (BEAKER) (test zvdd=868) 140 meq/L 135-148 POTASSIUM-STAT [id number] 13:07:00 Test Item Value Reference Range Comments POTASSIUM (BEAKER) (test vitv=422) 3.7 meq/L 3.6-5.5 SODIUM NA-STAT [id number] 11:39:00 Test Item Value Reference Range Comments SODIUM (BEAKER) (test ngcg=418) 141 meq/L 135-148 POTASSIUM-STAT [id number] 11:39:00 Test Item Value Reference Range Comments POTASSIUM (BEAKER) (test xrnr=999) 3.6 meq/L 3.6-5.5 BLOOD GAS, [id number] 11:39:00 Test Item Value Reference Range Comments PH ARTERIAL (BEAKER) (test saie=638) 7.44 7.35-7.45 PCO2 ARTERIAL (BEAKER) (test aqlv=681) 42 mmHg 35-45 PO2 ARTERIAL (BEAKER) (test jxcy=859) 234 mmHg 80-90 O2 SATURATION ARTERIAL (BEAKER) (test ylhr=896) 99.6 % 96.0-97.0 HCO3 ARTERIAL (BEAKER) (test pyuj=133) 28 mmol/L 21-29 BASE EXCESS ARTERIAL (BEAKER) (test bhkm=738) 3.4 mmol/L -2.0-3.0 PATIENT TEMPERATURE (BEAKER) (test mfhg=9475) 36.8 C FIO2 (BEAKER) (test tvsh=2796) 86.0 % GLUCOSE-STAT [id number] 11:39:00 Test Item Value Reference Range Comments GLUCOSE RANDOM (BEAKER) (test qcoh=322) 194 mg/dL 70-110 HGB/HCT (H&H) - STAT [id number] 11:39:00 Test Item Value Reference Range Comments HEMOGLOBIN (BEAKER) (test jkxo=300) 8.8 g/dL 12.0-15.0 HEMATOCRIT (BEAKER) (test xzre=084) 26.0 % 36.0-45.0 CALCIUM, [id number] 11:39:00 Test Item Value Reference Range Comments CALCIUM IONIZED (BEAKER) (test ogyq=425) 1.06 mmol/L 1.12-1.27 PH, BLOOD (BEAKER) (test hhbc=1569) 7.44 BLOOD GAS, [id number] 10:56:00 Test Item Value Reference Range Comments PH ARTERIAL (BEAKER) (test mmkz=866) 7.43 7.35-7.45 PCO2 ARTERIAL (BEAKER) (test nwhu=414) 46 mmHg 35-45 PO2 ARTERIAL (BEAKER) (test busx=717) 223 mmHg 80-90 O2 SATURATION ARTERIAL (BEAKER) (test cxqt=686) 99.5 % 96.0-97.0 HCO3 ARTERIAL (BEAKER) (test smil=091) 30 mmol/L 21-29 BASE EXCESS ARTERIAL (BEAKER) (test tlmi=073) 4.6 mmol/L -2.0-3.0 PATIENT TEMPERATURE (BEAKER) (test riiq=1672) 37.0 C FIO2 (BEAKER) (test uwou=2902) 100.0 % GLUCOSE-STAT [id number] 10:56:00 Test Item Value Reference Range Comments GLUCOSE RANDOM (BEAKER) (test idva=466) 190 mg/dL 70-110 HGB/HCT (H&H) - STAT [id number] 10:56:00 Test Item Value Reference Range Comments HEMOGLOBIN (BEAKER) (test aefw=681) 8.7 g/dL 12.0-15.0 HEMATOCRIT (BEAKER) (test cglm=360) 26.0 % 36.0-45.0 SODIUM NA-STAT [id number] 10:55:00 Test Item Value Reference Range Comments SODIUM (BEAKER) (test vwda=043) 142 meq/L 135-148 POTASSIUM-STAT [id number] 10:55:00 Test Item Value Reference Range Comments POTASSIUM (BEAKER) (test yfcz=913) 3.5 meq/L 3.6-5.5 [id number] 08:41:00 Test Item Value Reference Range Comments MAGNESIUM (BEAKER) (test gfoo=433) 2.0 mg/dL 1.6-2.6 BLOOD GAS, [id number] 07:57:00 Test Item Value Reference Range Comments PH ARTERIAL (BEAKER) (test mrlt=062) 7.48 7.35-7.45 PCO2 ARTERIAL (BEAKER) (test ewhz=136) 37 mmHg 35-45 PO2 ARTERIAL (BEAKER) (test mail=459) 71 mmHg 80-90 O2 SATURATION ARTERIAL (BEAKER) (test zrps=104) 94.8 % 96.0-97.0 HCO3 ARTERIAL (BEAKER) (test hdsa=489) 27 mmol/L 21-29 BASE EXCESS ARTERIAL (BEAKER) (test syod=406) 3.5 mmol/L -2.0-3.0 PATIENT TEMPERATURE (BEAKER) (test hary=7202) 37.8 C FIO2 (BEAKER) (test tktd=5196) 32.0 % POCT-GLUCOSE [id number] 07:50:00 Test Item Value Reference Range Comments POC-GLUCOSE METER (BEAKER) 246 mg/dL 70-110 TESTED AT [facility] [address] [place] [place] [address] (test hejt=0812) [facility] [address] RAD, CHEST, 1 VIEW, NON [id number] 04:54:00Reason for exam:-> impellaShould this be performed at the bedside?->YesFINAL REPORT CLINICAL INDICATION: Support lines. Comparison: 07/23/2017 The cardiomediastinal contours are stable. Central pulmonary vascular prominence and bilateral parenchymalopacities are similar to previous. There is no pneumothorax. Support lines are stable. Signed: Adelso Sorensen Verified Date/Time: 07/24/2017 04:54:08 Reading Location: [address] Reading Room POCT-GLUCOSE [id number] 04:08:00 Test Item Value Reference Range Comments POC-GLUCOSE METER (BEAKER) 137 mg/dL 70-110 TESTED AT [facility] [address] [facility] (test fucy=7392) [facility] [address] [id number] 03:02:00 Test Item Value Reference Range Comments PHOSPHORUS (BEAKER) (test tccv=313) 3.7 mg/dL 2.3-4.7 [id number] 03:02:00 Test Item Value Reference Range Comments MAGNESIUM (BEAKER) (test ipdb=308) 2.3 mg/dL 1.6-2.6 BASIC METABOLIC [id number] 03:02:00 Test Item Value Reference Range Comments SODIUM (BEAKER) (test 145 meq/L 136-145 czca=972) POTASSIUM (BEAKER) (test 4.0 meq/L 3.5-5.1 edjh=231) CHLORIDE (BEAKER) (test 106 meq/L 98-107 onmw=798) CO2 (BEAKER) (test 26 meq/L 22-29 drpi=768) BLOOD UREA NITROGEN 26 mg/dL 7-21 (BEAKER) (test aeaw=753) CREATININE (BEAKER) (test 1.47 mg/dL 0.57-1.25 vsao=487) GLUCOSE RANDOM (BEAKER) 141 mg/dL 70-105 (test tikk=905) CALCIUM (BEAKER) (test 9.0 mg/dL 8.4-10.2 qxrr=410) EGFR (BEAKER) (test 43 mL/min/1.73 sq m ESTIMATED GFR IS NOT tymi=4436) ACCURATE CREATININE CLEARANCE IN PREDICTING GLOMERULAR FILTRATION RATE. ESTIMATED GFR IS NOT APPLICABLE FOR DIALYSIS PATIENTS. HEPATIC FUNCTION [id number] 03:02:00 Test Item Value Reference Range Comments TOTAL PROTEIN (BEAKER) (test fchg=872) 6.6 gm/dL 6.0-8.3 ALBUMIN (BEAKER) (test fcvn=1489) 3.2 g/dL 3.5-5.0 BILIRUBIN TOTAL (BEAKER) (test gbmf=072) 1.2 mg/dL 0.2-1.2 BILIRUBIN DIRECT (BEAKER) (test rzqh=685) 0.6 mg/dL 0.1-0.5 ALKALINE PHOSPHATASE (BEAKER) (test obem=740) 55 U/L 40-150 AST (SGOT) (BEAKER) (test xilo=390) 33 U/L 5-34 ALT (SGPT) (BEAKER) (test rpsh=956) 25 U/L 6-55 LACTATE DEHYDROGENASE (LDH)2017-07-24 03:02:00 Test Item Value Reference Range Comments LACTATE DEHYDROGENASE (BEAKER) (test nxyx=949) 879 U/L 125-220 CBC W/PLT COUNT & AUTO [id number] 02:53:00 Test Item Value Reference Range Comments WHITE BLOOD CELL COUNT (BEAKER) (test oyzs=360) 12.6 K/ L 3.5-10.5 RED BLOOD CELL COUNT (BEAKER) (test cknz=180) 2.93 M/ L 3.93-5.22 HEMOGLOBIN (BEAKER) (test secj=617) 8.7 GM/DL 11.2-15.7 HEMATOCRIT (BEAKER) (test veri=118) 28.3 % 34.1-44.9 MEAN CORPUSCULAR VOLUME (BEAKER) (test pdna=052) 96.6 fL 79.4-94.8 MEAN CORPUSCULAR HEMOGLOBIN (BEAKER) (test 29.7 pg 25.6-32.2 jfct=585) MEAN CORPUSCULAR HEMOGLOBIN CONC (BEAKER) (test 30.7 GM/DL 32.2-35.5 stok=031) RED CELL DISTRIBUTION WIDTH (BEAKER) (test 14.7 % 11.7-14.4 omct=418) PLATELET COUNT (BEAKER) (test xuzb=579) 126 K/CU MM 150-450 MEAN PLATELET VOLUME (BEAKER) (test uwcq=329) 11.0 fL 9.4-12.3 NUCLEATED RED BLOOD CELLS (BEAKER) (test 0 /100 WBC 0-0 mpto=953) NEUTROPHILS RELATIVE PERCENT (BEAKER) (test 78 % qbiy=026) LYMPHOCYTES RELATIVE PERCENT (BEAKER) (test 10 % rymk=974) MONOCYTES RELATIVE PERCENT (BEAKER) (test 10 % kbiw=602) EOSINOPHILS RELATIVE PERCENT (BEAKER) (test 1 % ntvb=990) BASOPHILS RELATIVE PERCENT (BEAKER) (test 0 % csom=400) NEUTROPHILS ABSOLUTE COUNT (BEAKER) (test 9.85 K/ L 1.56-6.13 wmxv=579) LYMPHOCYTES ABSOLUTE COUNT (BEAKER) (test 1.27 K/ L 1.18-3.74 afuj=769) MONOCYTES ABSOLUTE COUNT (BEAKER) (test 1.25 K/ L 0.24-0.36 gtbz=191) EOSINOPHILS ABSOLUTE COUNT (BEAKER) (test 0.10 K/ L 0.04-0.36 immh=765) BASOPHILS ABSOLUTE COUNT (BEAKER) (test 0.05 K/ L 0.01-0.08 tzvf=225) IMMATURE GRANULOCYTES-RELATIVE PERCENT (BEAKER) 1 % 0-1 (test cahj=6008) [id number] 02:50:00 Test Item Value Reference Range Comments PROTIME (BEAKER) (test xjcg=760) 16.7 seconds 11.7-14.7 INR (BEAKER) (test yrut=163) 1.4 <=5.9 PARTIAL THROMBOPLASTIN TIME (BEAKER) (test 78.5 seconds 22.5-36.0 yifu=562) RECOMMENDED COUMADIN/WARFARIN INR THERAPY RANGESSTANDARD DOSE: 2.0 - 3.0 Includes: PROPHYLAXIS forvenous thrombosis, systemic embolization; TREATMENT for venous thrombosis and/or pulmonary embolus.HIGH RISK: Target INR is 2.5-3.5 for patients with mechanical heart valves.BLOOD [id number] 00:00:00 Test Item Value Reference Range Comments CULTURE (BEAKER) (test asak=1430) No growth in 5 days BLOOD [id number] 00:00:00 Test Item Value Reference Range Comments CULTURE (BEAKER) (test xkuz=4027) No growth in 5 days [id number] 22:01:00 Test Item Value Reference Range Comments MAGNESIUM (BEAKER) (test hwfl=845) 2.0 mg/dL 1.6-2.6 POCT-GLUCOSE [id number] 19:39:00 Test Item Value Reference Range Comments POC-GLUCOSE METER (BEAKER) 135 mg/dL 70-110 TESTED AT [facility] [address] [facility] (test fyko=1767) [facility] [address] BASIC METABOLIC [id number] 19:08:00 Test Item Value Reference Range Comments SODIUM (BEAKER) (test 145 meq/L 136-145 jhvi=956) POTASSIUM (BEAKER) (test 3.9 meq/L 3.5-5.1 owkw=455) CHLORIDE (BEAKER) (test 106 meq/L 98-107 irik=284) CO2 (BEAKER) (test 28 meq/L 22-29 iewr=154) BLOOD UREA NITROGEN 26 mg/dL 7-21 (BEAKER) (test zgnv=362) CREATININE (BEAKER) (test 1.45 mg/dL 0.57-1.25 rmlc=741) GLUCOSE RANDOM (BEAKER) 119 mg/dL 70-105 (test kpgg=100) CALCIUM (BEAKER) (test 9.2 mg/dL 8.4-10.2 ujrq=009) EGFR (BEAKER) (test 43 mL/min/1.73 sq m ESTIMATED GFR IS NOT lqsm=7186) ACCURATE CREATININE CLEARANCE IN PREDICTING GLOMERULAR FILTRATION RATE. ESTIMATED GFR IS NOT APPLICABLE FOR DIALYSIS PATIENTS. [id number] 19:06:00 Test Item Value Reference Range Comments PHOSPHORUS (BEAKER) (test rwxc=060) 3.7 mg/dL 2.3-4.7 VANCOMYCIN LEVEL, [id number] 16:33:00 Test Item Value Reference Range Comments VANCOMYCIN TROUGH (BEAKER) (test xboz=416) 17.8 ug/mL 10.0-20.0 If vancomycin trough level > 20 mcg/mL, hold next vancomycin dose, and contact MD and pharmacist.VARICELLA ZOSTER ANTIBODY, [id number] 14:47:00 Test Item Value Reference Range Comments VARICELLA ZOSTER IGG (AL) (BEAKER) (test fhph=2373) 2.3 Al VARICELLA ZOSTER RESULT INTERPRETATIONS: <=0.8 Al Nonreactive: Presumed non-immune to VZV 0.9-1.0 Al Equivocal >=1.1 Al Reactive: Presumed immune to VZVCYTOMEGALOVIRUS ANTIBODY, [id number] 14:46:00 Test Item Value Reference Range Comments CYTOMEGALOVIRUS IGG ANTIBODY (BEAKER) (test Negative vvqr=650) CYTOMEGALOVIRUS ANTIBODY, [id number] 14:46:00 Test Item Value Reference Range Comments CYTOMEGALOVIRUS IGM ANTIBODY (BEAKER) (test Negative htro=893) EBV-VCA ANTIBODY, [id number] 14:46:00 Test Item Value Reference Range Comments MARIO-CARMEN VCA IGG (BEAKER) (test mmry=119) Positive EBV-VCA ANTIBODY, [id number] 14:46:00 Test Item Value Reference Range Comments MARIO-CARMEN VCA IGM (BEAKER) (test ivim=336) Negative HERPES VIRUS ANTIBODY, [id number] 14:45:00 Test Item Value Reference Range Comments HERPES VIRUS IGG (BEAKER) (test sosf=4971) Negative HSV IgG 1=NEGATIVEHSV IgG 2=NEGATIVETOXOPLASMA GONDII ANTIBODY, [id number] 14 :45:00 Test Item Value Reference Range Comments TOXOPLASMA GONDII IGG (BEAKER) (test firi=183) Negative [id number] 14:37:00 Test Item Value Reference Range Comments PARTIAL THROMBOPLASTIN TIME (BEAKER) (test 69.5 seconds 22.5-36.0 fkom=195) OCCULT BLOOD, [id number] 14:34:00 Test Item Value Reference Range Comments FECAL OCCULT BLOOD (BEAKER) (test euns=326) Negative Negative POCT-GLUCOSE [id number] 14:20:00 Test Item Value Reference Range Comments POC-GLUCOSE METER (BEAKER) 166 mg/dL 70-110 TESTED AT [address] (test mqmd=7872) [facility] [address] POCT-GLUCOSE [id number] 14:20:00 Test Item Value Reference Range Comments POC-GLUCOSE METER (BEAKER) 82 mg/dL 70-110 TESTED AT [address] (test cgsz=9669) [facility] [address] [id number] 13:00:00 Test Item Value Reference Range Comments PHOSPHORUS (BEAKER) (test zlwh=548) 3.2 mg/dL 2.3-4.7 BASIC METABOLIC [id number] 13:00:00 Test Item Value Reference Range Comments SODIUM (BEAKER) (test 143 meq/L 136-145 koxv=248) POTASSIUM (BEAKER) (test 3.8 meq/L 3.5-5.1 fcex=391) CHLORIDE (BEAKER) (test 104 meq/L 98-107 ykpv=678) CO2 (BEAKER) (test 29 meq/L 22-29 qyza=375) BLOOD UREA NITROGEN 28 mg/dL 7-21 (BEAKER) (test dccv=034) CREATININE (BEAKER) (test 1.44 mg/dL 0.57-1.25 yitp=417) GLUCOSE RANDOM (BEAKER) 171 mg/dL 70-105 (test dchv=673) CALCIUM (BEAKER) (test 9.1 mg/dL 8.4-10.2 urwc=526) EGFR (BEAKER) (test 44 mL/min/1.73 sq m ESTIMATED GFR IS NOT ywaa=6789) ACCURATE CREATININE CLEARANCE IN PREDICTING GLOMERULAR FILTRATION RATE. ESTIMATED GFR IS NOT APPLICABLE FOR DIALYSIS PATIENTS. POCT-GLUCOSE [id number] 12:29:00 Test Item Value Reference Range Comments POC-GLUCOSE METER (BEAKER) 179 mg/dL 70-110 TESTED AT [address] (test zmhn=4396) [facility] [address] CREATININE [id number] 11:15:00 Test Item Value Reference Range Comments CREATININE CLEARANCE (BEAKER) 45.8 mL/min 70.0-140.0 (test oycb=757) VOLUME, TOTAL (BEAKER) (test 3400 ml kptj=3719) CREATININE URINE (BEAKER) (test 36.8 mg/dL sgkk=172) [id number] (BEAKER) Анна Encarnacion MD (test kxct=1018) (electronic signature) PATIENT HEIGHT (CM) (BEAKER) 165.1 cm (test xunr=0018) PATIENT WEIGHT (KG) (BEAKER) 84.100 kg (test cymw=4299) [id number] 09:15:00 Test Item Value Reference Range Comments POTASSIUM (BEAKER) (test iiqx=170) 4.1 meq/L 3.5-5.1 PRN - repeat potassium levels every 1 hour until glucose level is less than 450 mg/[id number] 09:15:00 Test Item Value Reference Range Comments MAGNESIUM (BEAKER) (test drcj=942) 2.4 mg/dL 1.6-2.6 PRN - repeat potassium levels every 1 hour until glucose level is less than 450 mg/dLPOCT-GLUCOSE [id number] 08:47:00 Test Item Value Reference Range Comments POC-GLUCOSE METER (BEAKER) 155 mg/dL 70-110 TESTED AT [address] (test weei=2722) [facility] [address] POCT-GLUCOSE [id number] 06:12:00 Test Item Value Reference Range Comments POC-GLUCOSE METER (BEAKER) 143 mg/dL 70-110 TESTED AT [facility] [address] [facility] (test bzys=5920) [facility] [address] POCT-GLUCOSE [id number] 06:12:00 Test Item Value Reference Range Comments POC-GLUCOSE METER (BEAKER) 123 mg/dL 70-110 TESTED AT [facility] [address] [facility] (test tzgt=1327) [facility] [address] RAD, CHEST, 1 VIEW, NON [id number] 05:36:00Reason for exam:->respiratory insufficiencyFINAL REPORT Chest one view. Clinical history: respiratory insufficiency Comparison: Chest radiograph 07/22/2017 Technique: A single frontal view of the chest was obtained. Findings: Cardiomediastinal contours are unchanged. There is a right IJ [place]-Jagdeep catheter, with tip inthe right pulmonary artery. [...] endovascular stent in the mid abdomen. Signed: Alexai Ramirez Verified Date/Time: 07/23/2017 05:36:35 Reading Location: [address] Reading Room CALCIUM, [id number] 05:19:00 Test Item Value Reference Range Comments CALCIUM IONIZED (BEAKER) (test utow=321) 1.12 mmol/L 1.12-1.27 PH, BLOOD (BEAKER) (test foom=8345) 7.40 OXYGEN SATURATION, [id number] 05:18:00 Test Item Value Reference Range Comments O2 SATURATION (MEASURED) (BEAKER) (test yayz=8657) 63.1 % POCT-GLUCOSE [id number] 05:05:00 Test Item Value Reference Range Comments POC-GLUCOSE METER (BEAKER) 131 mg/dL 70-110 TESTED AT [facility] [address] (test fkmi=5378) [place] [address] BLOOD GAS, [id number] 04:58:00 Test Item Value Reference Range Comments PH ARTERIAL (BEAKER) (test tela=221) 7.41 7.35-7.45 PCO2 ARTERIAL (BEAKER) (test eteh=547) 51 mmHg 35-45 PO2 ARTERIAL (BEAKER) (test jcqi=562) 93 mmHg 80-90 O2 SATURATION ARTERIAL (BEAKER) (test czsj=690) 96.9 % 96.0-97.0 HCO3 ARTERIAL (BEAKER) (test anin=704) 31 mmol/L 21-29 BASE EXCESS ARTERIAL (BEAKER) (test okgf=224) 5.9 mmol/L -2.0-3.0 PATIENT TEMPERATURE (BEAKER) (test vdoz=1837) 37.4 C FIO2 (BEAKER) (test ysvd=5963) 70.0 % [id number] 03:35:00 Test Item Value Reference Range Comments PARTIAL THROMBOPLASTIN TIME (BEAKER) (test 70.8 seconds 22.5-36.0 ogjs=502) [id number] 03:34:00 Test Item Value Reference Range Comments PHOSPHORUS (BEAKER) (test orpt=808) 3.0 mg/dL 2.3-4.7 [id number] 03:34:00 Test Item Value Reference Range Comments MAGNESIUM (BEAKER) (test dxiz=540) 2.1 mg/dL 1.6-2.6 BASIC METABOLIC [id number] 03:34:00 Test Item Value Reference Range Comments SODIUM (BEAKER) (test 144 meq/L 136-145 cfup=847) POTASSIUM (BEAKER) (test 3.9 meq/L 3.5-5.1 fdzh=924) CHLORIDE (BEAKER) (test 105 meq/L 98-107 bhdi=565) CO2 (BEAKER) (test 29 meq/L 22-29 gtwp=734) BLOOD UREA NITROGEN 29 mg/dL 7-21 (BEAKER) (test ygsc=773) CREATININE (BEAKER) (test 1.54 mg/dL 0.57-1.25 mhjt=961) GLUCOSE RANDOM (BEAKER) 119 mg/dL 70-105 (test mkqa=732) CALCIUM (BEAKER) (test 9.1 mg/dL 8.4-10.2 mgwf=868) EGFR (BEAKER) (test 40 mL/min/1.73 sq m ESTIMATED GFR IS NOT mrgh=6776) ACCURATE CREATININE CLEARANCE IN PREDICTING GLOMERULAR FILTRATION RATE. ESTIMATED GFR IS NOT APPLICABLE FOR DIALYSIS PATIENTS. HEPATIC FUNCTION [id number] 03:34:00 Test Item Value Reference Range Comments TOTAL PROTEIN (BEAKER) (test fifu=360) 6.7 gm/dL 6.0-8.3 ALBUMIN (BEAKER) (test epcj=9334) 3.3 g/dL 3.5-5.0 BILIRUBIN TOTAL (BEAKER) (test tfly=376) 1.2 mg/dL 0.2-1.2 BILIRUBIN DIRECT (BEAKER) (test vuru=434) 0.6 mg/dL 0.1-0.5 ALKALINE PHOSPHATASE (BEAKER) (test kgit=437) 51 U/L 40-150 AST (SGOT) (BEAKER) (test meui=523) 48 U/L 5-34 ALT (SGPT) (BEAKER) (test bsik=321) 29 U/L 6-55 LACTATE DEHYDROGENASE (LDH)2017-07-23 03:34:00 Test Item Value Reference Range Comments LACTATE DEHYDROGENASE (BEAKER) (test xwbk=089) 1020 U/L 125-220 CBC W/PLT COUNT & AUTO [id number] 03:25:00 Test Item Value Reference Range Comments WHITE BLOOD CELL COUNT (BEAKER) (test tvbd=355) 11.7 K/ L 3.5-10.5 RED BLOOD CELL COUNT (BEAKER) (test amfe=222) 3.01 M/ L 3.93-5.22 HEMOGLOBIN (BEAKER) (test zued=813) 9.0 GM/DL 11.2-15.7 HEMATOCRIT (BEAKER) (test szfd=472) 28.9 % 34.1-44.9 MEAN CORPUSCULAR VOLUME (BEAKER) (test bwam=931) 96.0 fL 79.4-94.8 MEAN CORPUSCULAR HEMOGLOBIN (BEAKER) (test 29.9 pg 25.6-32.2 amiw=937) MEAN CORPUSCULAR HEMOGLOBIN CONC (BEAKER) (test 31.1 GM/DL 32.2-35.5 nwis=997) RED CELL DISTRIBUTION WIDTH (BEAKER) (test 15.0 % 11.7-14.4 poft=714) PLATELET COUNT (BEAKER) (test opdg=424) 128 K/CU MM 150-450 MEAN PLATELET VOLUME (BEAKER) (test cuzu=703) 11.3 fL 9.4-12.3 NUCLEATED RED BLOOD CELLS (BEAKER) (test 0 /100 WBC 0-0 qneu=750) NEUTROPHILS RELATIVE PERCENT (BEAKER) (test 78 % fyvr=795) LYMPHOCYTES RELATIVE PERCENT (BEAKER) (test 11 % srhb=477) MONOCYTES RELATIVE PERCENT (BEAKER) (test 10 % evzm=332) EOSINOPHILS RELATIVE PERCENT (BEAKER) (test 1 % xgpi=676) BASOPHILS RELATIVE PERCENT (BEAKER) (test 0 % ageh=288) NEUTROPHILS ABSOLUTE COUNT (BEAKER) (test 9.07 K/ L 1.56-6.13 obha=341) LYMPHOCYTES ABSOLUTE COUNT (BEAKER) (test 1.25 K/ L 1.18-3.74 zubq=550) MONOCYTES ABSOLUTE COUNT (BEAKER) (test 1.12 K/ L 0.24-0.36 vbpt=428) EOSINOPHILS ABSOLUTE COUNT (BEAKER) (test 0.12 K/ L 0.04-0.36 brkg=049) BASOPHILS ABSOLUTE COUNT (BEAKER) (test 0.05 K/ L 0.01-0.08 tzis=406) IMMATURE GRANULOCYTES-RELATIVE PERCENT (BEAKER) 1 % 0-1 (test ynxs=8915) POCT-GLUCOSE [id number] 03:09:00 Test Item Value Reference Range Comments POC-GLUCOSE METER (BEAKER) 114 mg/dL 70-110 TESTED AT [address] (test phel=4085) [place] [id number] POCT-GLUCOSE [id number] 03:09:00 Test Item Value Reference Range Comments POC-GLUCOSE METER (BEAKER) 122 mg/dL 70-110 TESTED AT [address] (test ljrd=2147) [place] [id number] BASIC METABOLIC [id number] 00:32:00 Test Item Value Reference Range Comments SODIUM (BEAKER) (test 144 meq/L 136-145 vlfn=783) POTASSIUM (BEAKER) (test 4.2 meq/L 3.5-5.1 rifs=159) CHLORIDE (BEAKER) (test 105 meq/L 98-107 fvij=424) CO2 (BEAKER) (test 28 meq/L 22-29 cbkh=435) BLOOD UREA NITROGEN 30 mg/dL 7-21 (BEAKER) (test bunt=216) CREATININE (BEAKER) (test 1.56 mg/dL 0.57-1.25 kiko=188) GLUCOSE RANDOM (BEAKER) 131 mg/dL 70-105 (test xbwi=176) CALCIUM (BEAKER) (test 9.0 mg/dL 8.4-10.2 dcmw=130) EGFR (BEAKER) (test 40 mL/min/1.73 sq m ESTIMATED GFR IS NOT xgxf=2505) ACCURATE CREATININE CLEARANCE IN PREDICTING GLOMERULAR FILTRATION RATE. ESTIMATED GFR IS NOT APPLICABLE FOR DIALYSIS PATIENTS. [id number] 00:31:00 Test Item Value Reference Range Comments PHOSPHORUS (BEAKER) (test mkwj=980) 3.4 mg/dL 2.3-4.7 POCT-GLUCOSE [id number] 00:10:00 Test Item Value Reference Range Comments POC-GLUCOSE METER (BEAKER) 140 mg/dL 70-110 TESTED AT [address] (test grlx=5836) [place] [id number] POCT-GLUCOSE [id number] 00:08:00 Test Item Value Reference Range Comments POC-GLUCOSE METER (BEAKER) 121 mg/dL 70-110 TESTED AT [address] (test zivq=9971) [place] [id number] POCT-GLUCOSE [id number] 00:08:00 Test Item Value Reference Range Comments POC-GLUCOSE METER (BEAKER) 112 mg/dL 70-110 TESTED AT [address] (test mqjb=7383) [facility] [id number] POCT-GLUCOSE [id number] 00:08:00 Test Item Value Reference Range Comments POC-GLUCOSE METER (BEAKER) 84 mg/dL 70-110 TESTED AT [address] (test nlai=9743) [facility] [id number] BASIC METABOLIC [id number] 20:36:00 Test Item Value Reference Range Comments SODIUM (BEAKER) (test 145 meq/L 136-145 ujke=111) POTASSIUM (BEAKER) (test 3.6 meq/L 3.5-5.1 wmwq=878) CHLORIDE (BEAKER) (test 106 meq/L 98-107 rmrj=657) CO2 (BEAKER) (test 31 meq/L 22-29 kbsl=408) BLOOD UREA NITROGEN 32 mg/dL 7-21 (BEAKER) (test rjmm=374) CREATININE (BEAKER) (test 1.56 mg/dL 0.57-1.25 zwli=689) GLUCOSE RANDOM (BEAKER) 85 mg/dL 70-105 (test dxby=118) CALCIUM (BEAKER) (test 9.0 mg/dL 8.4-10.2 ceel=507) EGFR (BEAKER) (test 40 mL/min/1.73 sq m ESTIMATED GFR IS NOT tuwf=1297) ACCURATE CREATININE CLEARANCE IN PREDICTING GLOMERULAR FILTRATION RATE. ESTIMATED GFR IS NOT APPLICABLE FOR DIALYSIS PATIENTS. [id number] 20:36:00 Test Item Value Reference Range Comments MAGNESIUM (BEAKER) (test fuka=249) 2.4 mg/dL 1.6-2.6 [id number] 18:26:00 Test Item Value Reference Range Comments PHOSPHORUS (BEAKER) (test rhqe=794) 2.4 mg/dL 2.3-4.7 BASIC METABOLIC [id number] 18:26:00 Test Item Value Reference Range Comments SODIUM (BEAKER) (test 144 meq/L 136-145 fvda=353) POTASSIUM (BEAKER) (test 3.9 meq/L 3.5-5.1 kvyz=566) CHLORIDE (BEAKER) (test 106 meq/L 98-107 lnvr=093) CO2 (BEAKER) (test 30 meq/L 22-29 jpvn=781) BLOOD UREA NITROGEN 32 mg/dL 7-21 (BEAKER) (test cagb=279) CREATININE (BEAKER) (test 1.67 mg/dL 0.57-1.25 mlai=619) GLUCOSE RANDOM (BEAKER) 141 mg/dL 70-105 (test cugw=917) CALCIUM (BEAKER) (test 9.1 mg/dL 8.4-10.2 uepq=768) EGFR (BEAKER) (test 37 mL/min/1.73 sq m ESTIMATED GFR IS NOT xbtd=7635) ACCURATE CREATININE CLEARANCE IN PREDICTING GLOMERULAR FILTRATION RATE. ESTIMATED GFR IS NOT APPLICABLE FOR DIALYSIS PATIENTS. LACTIC ACID, ARTERIAL, WHOLE [id number] 18:22:00 Test Item Value Reference Range Comments LACTATE BLOOD ARTERIAL (2) (BEAKER) (test 1.0 mmol/L 0.5-2.2 xqqu=5714) Effective 08/06/2015: Units/Reference Range ChangeNew: 0.5-2.2 mmol/L Previous: 5 -20 mg/dLPOCT-GLUCOSE [id number] 17:56:00 Test Item Value Reference Range Comments POC-GLUCOSE METER (BEAKER) 138 mg/dL 70-110 TESTED AT [address] (test wxcl=0833) [place] [address] [id number] 16:19:00 Test Item Value Reference Range Comments POTASSIUM (BEAKER) (test ativ=859) 3.8 meq/L 3.5-5.1 PRN - repeat potassium levels every 1 hour until glucose level is less than 450 mg/[id number] 16:06:00 Test Item Value Reference Range Comments PARTIAL THROMBOPLASTIN TIME (BEAKER) (test 71.3 seconds 22.5-36.0 mqgt=153) OXYGEN SATURATION, [id number] 15:58:00 Test Item Value Reference Range Comments O2 SATURATION (MEASURED) (BEAKER) (test qpvz=1675) 58.6 % calibrationPOCT-GLUCOSE [id number] 15:51:00 Test Item Value Reference Range Comments POC-GLUCOSE METER (BEAKER) 147 mg/dL 70-110 TESTED AT [address] (test pfta=3134) [place] [address] RAD, CHEST, 1 VIEW, NON [id number] 14:57:00Reason for exam:->s/p CVC placement Should this be performed at the bedside?->YesFINAL REPORT TECHNIQUE: Frontal chest radiograph dated 07/22/2017. CLINICAL HISTORY: CVC placement COMPARISON STUDY: Chest radiograph performed earlier the same day. IMPRESSION:There has been interval placement of a right-sided [place]- Jagdeep catheter with the tip in the main pulmonary artery. Impella device is unchanged in appearance. There is left lung base atelectasis. No pleural effusion or pneumothorax. Cardiomediastinal silhouette is normal in size. No pulmonary edema. Bonesare osteopenic. No fracture. Signed: Dawson Noel MDReport Verified Date/Time: 07/22/2017 14:57:48 Reading Location: [facility] Radiology Reading Room PROTEIN ELECTROPHORESIS, [id number] 14:45:00 Test Item Value Reference Range Comments ALBUMIN FRACTION (BEAKER) 3.0 g/dL 3.5-5.5 (test csbm=219) ALPHA 1 FRACTION (BEAKER) 0.4 g/dL 0.2-0.4 (test xmte=181) ALPHA 2 FRACTION (BEAKER) 0.5 g/dL 0.5-0.9 (test yvij=619) BETA FRACTION (BEAKER) (test 1.0 g/dL 0.6-1.1 xynz=065) GAMMA GLOBULIN FRACTION 1.2 g/dL 0.7-1.7 (BEAKER) (test blqb=728) INTERPRETATION-119 (BEAKER) Albumin decreased. Alpha (test bfed=5394) globulin percentages increased. This suggests an acute phase response. [id number]-466 (BEAKER) Анна Encarnacion MD (electronic (test fwap=7093) signature) PROTEIN TOTAL SERUM, SPEP 6.1 gm/dL 6.0-8.3 (BEAKER) (test vuqc=5994) POCT-GLUCOSE [id number] 14:34:00 Test Item Value Reference Range Comments POC-GLUCOSE METER (BEAKER) 137 mg/dL 70-110 TESTED AT [address] (test kuzt=7363) [facility] [address] ANTI-NUCLEAR ANTIBODY (ROSLYN)2017-07-22 13:24:00 Test Item Value Reference Range Comments ANTI-NUCLEAR ANTIBODY (ROSLYN) (BEAKER) (test Positive Negative qppu=889) ROSLYN TITER AND [id number] 13:24:00 Test Item Value Reference Range Comments ROSLYN TITER (BEAKER) (test pprd=5122) :640 ROSLYN PATTERN (BEAKER) (test nlwi=0389) Homogeneous [id number] 12:50:00 Test Item Value Reference Range Comments PHOSPHORUS (BEAKER) (test rasr=475) 2.5 mg/dL 2.3-4.7 BASIC METABOLIC [id number] 12:50:00 Test Item Value Reference Range Comments SODIUM (BEAKER) (test 145 meq/L 136-145 ayzy=031) POTASSIUM (BEAKER) (test 3.6 meq/L 3.5-5.1 ghys=136) CHLORIDE (BEAKER) (test 107 meq/L 98-107 fmvn=151) CO2 (BEAKER) (test 30 meq/L 22-29 fssn=586) BLOOD UREA NITROGEN 37 mg/dL 7-21 (BEAKER) (test lzih=421) CREATININE (BEAKER) (test 1.69 mg/dL 0.57-1.25 npvo=626) GLUCOSE RANDOM (BEAKER) 154 mg/dL 70-105 (test jyen=743) CALCIUM (BEAKER) (test 8.9 mg/dL 8.4-10.2 cxcl=486) EGFR (BEAKER) (test 36 mL/min/1.73 sq m ESTIMATED GFR IS NOT cidz=0006) ACCURATE CREATININE CLEARANCE IN PREDICTING GLOMERULAR FILTRATION RATE. ESTIMATED GFR IS NOT APPLICABLE FOR DIALYSIS PATIENTS. BLOOD GAS, [id number] 12:36:00 Test Item Value Reference Range Comments PH ARTERIAL (BEAKER) (test autj=145) 7.48 7.35-7.45 PCO2 ARTERIAL (BEAKER) (test hrql=764) 44 mmHg 35-45 PO2 ARTERIAL (BEAKER) (test lqbf=213) 156 mmHg 80-90 O2 SATURATION ARTERIAL (BEAKER) (test ujqn=232) 99.1 % 96.0-97.0 HCO3 ARTERIAL (BEAKER) (test tptf=161) 32 mmol/L 21-29 BASE EXCESS ARTERIAL (BEAKER) (test pujr=074) 7.4 mmol/L -2.0-3.0 PATIENT TEMPERATURE (BEAKER) (test vnaq=8958) 37.4 C FIO2 (BEAKER) (test vhyq=3921) 80.0 % POCT-GLUCOSE [id number] 12:26:00 Test Item Value Reference Range Comments POC-GLUCOSE METER (BEAKER) 147 mg/dL 70-110 TESTED AT [facility] [address] [facility] (test gyvc=4220) [facility] [address] URINE [id number] 11:56:00 Test Item Value Reference Range Comments CULTURE (BEAKER) (test frjb=6185) No growth POCT-GLUCOSE [id number] 11:11:00 Test Item Value Reference Range Comments POC-GLUCOSE METER (BEAKER) 172 mg/dL 70-110 TESTED AT [address] (test dayb=0929) [place] [id number] POCT-GLUCOSE [id number] 09:54:00 Test Item Value Reference Range Comments POC-GLUCOSE METER (BEAKER) 196 mg/dL 70-110 TESTED AT [address] (test wsbu=2633) [place] [address] LACTIC ACID, ARTERIAL, WHOLE [id number] 09:07:00 Test Item Value Reference Range Comments LACTATE BLOOD ARTERIAL (2) (BEAKER) (test 0.7 mmol/L 0.5-2.2 tigv=3996) Effective 08/06/2015: Units/Reference Range ChangeNew: 0.5-2.2 mmol/L Previous: 5 -20 mg/[id number] 09:06:00 Test Item Value Reference Range Comments MAGNESIUM (BEAKER) (test ibte=969) 2.2 mg/dL 1.6-2.6 POCT-GLUCOSE [id number] 08:39:00 Test Item Value Reference Range Comments POC-GLUCOSE METER (BEAKER) 188 mg/dL 70-110 TESTED AT [address] (test jcjn=5472) [place] [id number] POCT-GLUCOSE [id number] 08:37:00 Test Item Value Reference Range Comments POC-GLUCOSE METER (BEAKER) 195 mg/dL 70-110 TESTED AT [address] (test cncn=1676) [place] [id number] BLOOD GAS, [id number] 06:46:00 Test Item Value Reference Range Comments PH ARTERIAL (BEAKER) (test ypwq=925) 7.47 7.35-7.45 PCO2 ARTERIAL (BEAKER) (test hcaz=244) 44 mmHg 35-45 PO2 ARTERIAL (BEAKER) (test pkbr=400) 57 mmHg 80-90 O2 SATURATION ARTERIAL (BEAKER) (test svls=285) 91.1 % 96.0-97.0 HCO3 ARTERIAL (BEAKER) (test sycr=767) 32 mmol/L 21-29 BASE EXCESS ARTERIAL (BEAKER) (test apkq=517) 7.1 mmol/L -2.0-3.0 PATIENT TEMPERATURE (BEAKER) (test inoe=1441) 37.0 C [id number] 06:14:00 Test Item Value Reference Range Comments RPR SCREEN (BEAKER) (test wzwh=587) Nonreactive Nonreactive CALCIUM, [id number] 05:52:00 Test Item Value Reference Range Comments CALCIUM IONIZED (BEAKER) (test uwac=735) 1.13 mmol/L 1.12-1.27 PH, BLOOD (BEAKER) (test taoc=7265) 7.46 [id number] 05:42:00 Test Item Value Reference Range Comments PHOSPHORUS (BEAKER) (test ausv=055) 2.2 mg/dL 2.3-4.7 [id number] 05:42:00 Test Item Value Reference Range Comments MAGNESIUM (BEAKER) (test mdta=631) 2.1 mg/dL 1.6-2.6 HEPATIC FUNCTION [id number] 05:42:00 Test Item Value Reference Range Comments TOTAL PROTEIN (BEAKER) (test ujib=344) 6.2 gm/dL 6.0-8.3 ALBUMIN (BEAKER) (test tyhu=3301) 3.1 g/dL 3.5-5.0 BILIRUBIN TOTAL (BEAKER) (test jqdu=961) 1.4 mg/dL 0.2-1.2 BILIRUBIN DIRECT (BEAKER) (test wavy=388) 0.7 mg/dL 0.1-0.5 ALKALINE PHOSPHATASE (BEAKER) (test sjzr=495) 49 U/L 40-150 AST (SGOT) (BEAKER) (test atdv=899) 74 U/L 5-34 ALT (SGPT) (BEAKER) (test dkts=355) 37 U/L 6-55 LACTATE DEHYDROGENASE (LDH)2017-07-22 05:42:00 Test Item Value Reference Range Comments LACTATE DEHYDROGENASE (BEAKER) (test oqgl=101) 1339 U/L 125-220 [id number] 05:40:00 Test Item Value Reference Range Comments PHOSPHORUS (BEAKER) (test fyev=370) 2.2 mg/dL 2.3-4.7 BASIC METABOLIC [id number] 05:40:00 Test Item Value Reference Range Comments SODIUM (BEAKER) (test 144 meq/L 136-145 vols=227) POTASSIUM (BEAKER) (test 4.0 meq/L 3.5-5.1 leep=750) CHLORIDE (BEAKER) (test 107 meq/L 98-107 mktm=324) CO2 (BEAKER) (test 28 meq/L 22-29 uxsn=990) BLOOD UREA NITROGEN 36 mg/dL 7-21 (BEAKER) (test boex=806) CREATININE (BEAKER) (test 1.79 mg/dL 0.57-1.25 egdm=863) GLUCOSE RANDOM (BEAKER) 183 mg/dL 70-105 (test zmdt=677) CALCIUM (BEAKER) (test 8.9 mg/dL 8.4-10.2 ufcs=294) EGFR (BEAKER) (test 34 mL/min/1.73 sq m ESTIMATED GFR IS NOT lnzc=6347) ACCURATE CREATININE CLEARANCE IN PREDICTING GLOMERULAR FILTRATION RATE. ESTIMATED GFR IS NOT APPLICABLE FOR DIALYSIS PATIENTS. OXYGEN SATURATION, [id number] 05:29:00 Test Item Value Reference Range Comments O2 SATURATION (MEASURED) (BEAKER) (test mtlf=8971) 54.7 % [id number] 05:29:00 Test Item Value Reference Range Comments PARTIAL THROMBOPLASTIN TIME (BEAKER) (test 70.7 seconds 22.5-36.0 mkul=124) CBC W/PLT COUNT & AUTO [id number] 05:24:00 Test Item Value Reference Range Comments WHITE BLOOD CELL COUNT (BEAKER) (test qsxd=191) 13.0 K/ L 3.5-10.5 RED BLOOD CELL COUNT (BEAKER) (test htyk=460) 3.04 M/ L 3.93-5.22 HEMOGLOBIN (BEAKER) (test gsxl=658) 9.0 GM/DL 11.2-15.7 HEMATOCRIT (BEAKER) (test ccfc=516) 29.0 % 34.1-44.9 MEAN CORPUSCULAR VOLUME (BEAKER) (test fgzk=800) 95.4 fL 79.4-94.8 MEAN CORPUSCULAR HEMOGLOBIN (BEAKER) (test 29.6 pg 25.6-32.2 lhao=320) MEAN CORPUSCULAR HEMOGLOBIN CONC (BEAKER) (test 31.0 GM/DL 32.2-35.5 jwss=623) RED CELL DISTRIBUTION WIDTH (BEAKER) (test 15.5 % 11.7-14.4 oauk=683) PLATELET COUNT (BEAKER) (test xraa=744) 132 K/CU MM 150-450 MEAN PLATELET VOLUME (BEAKER) (test kjwv=021) 11.4 fL 9.4-12.3 NUCLEATED RED BLOOD CELLS (BEAKER) (test 0 /100 WBC 0-0 sljv=521) NEUTROPHILS RELATIVE PERCENT (BEAKER) (test 80 % qzrs=807) LYMPHOCYTES RELATIVE PERCENT (BEAKER) (test 10 % fmmo=585) MONOCYTES RELATIVE PERCENT (BEAKER) (test 9 % jxsg=561) EOSINOPHILS RELATIVE PERCENT (BEAKER) (test 0 % cncr=869) BASOPHILS RELATIVE PERCENT (BEAKER) (test 0 % puez=516) NEUTROPHILS ABSOLUTE COUNT (BEAKER) (test 10.44 K/ L 1.56-6.13 hery=157) LYMPHOCYTES ABSOLUTE COUNT (BEAKER) (test 1.29 K/ L 1.18-3.74 qcak=399) MONOCYTES ABSOLUTE COUNT (BEAKER) (test 1.12 K/ L 0.24-0.36 zlow=266) EOSINOPHILS ABSOLUTE COUNT (BEAKER) (test 0.01 K/ L 0.04-0.36 oque=383) BASOPHILS ABSOLUTE COUNT (BEAKER) (test 0.04 K/ L 0.01-0.08 zpvn=428) IMMATURE GRANULOCYTES-RELATIVE PERCENT (BEAKER) 1 % 0-1 (test yixx=2419) RAD, CHEST, 1 VIEW, NON [id number] 04:45:00Reason for exam:->respiratory insufficiencyFINAL REPORT CLINICAL INDICATION: Respiratory insufficiency Comparison: 07/21/2017 The cardiomediastinal contours are stable. The left hemidiaphragm is slightly elevated. Centralpulmonary vascular congestion and bilateral parenchymal opacities are unchanged. There is no pneumothorax. A femoral Impella device remains in place. Signed: Adelso Sorensen Verified Date/Time:07/22/2017 04:45:12 Reading Location: [address] Reading Room POCT-GLUCOSE [id number] 03:01:00 Test Item Value Reference Range Comments POC-GLUCOSE METER (BEAKER) 115 mg/dL 70-110 TESTED AT [address] (test pnyo=2076) [facility] [address] POCT-GLUCOSE [id number] 00:14:00 Test Item Value Reference Range Comments POC-GLUCOSE METER (BEAKER) 137 mg/dL 70-110 TESTED AT [address] (test elxa=5312) [place] [id number] 00:09:00 Test Item Value Reference Range Comments POTASSIUM (BEAKER) (test sgbm=364) 3.8 meq/L 3.5-5.1 PRN - repeat glucose levels every 1 hour or as specified by insulin titration orders until glucose level is less than 450 mg/dLCheck Serum Potassium level 2 hours after oral potassium replacement completed or 30 min after intravenous potassium replacement.[id number] 00:09:00 Test Item Value Reference Range Comments MAGNESIUM (BEAKER) (test htto=300) 2.5 mg/dL 1.6-2.6 PRN - repeat glucose levels every 1 hour or as specified by insulin titration orders until glucose level is less than 450 mg/dLCheck Serum Potassium level 2 hours after oral potassium replacement completed or 30 min after intravenous potassium replacement.[id number] 00:09:00 Test Item Value Reference Range Comments PHOSPHORUS (BEAKER) (test nqbm=255) 1.9 mg/dL 2.3-4.7 PRN - repeat glucose levels every 1 hour or as specified by insulin titration orders until glucose level is less than 450 mg/dLCheck Serum Potassium level 2 hours after oral potassium replacement completed or 30 min after intravenous potassium replacement.[id number] 00:09:00 Test Item Value Reference Range Comments GLUCOSE RANDOM (BEAKER) (test eusy=313) 155 mg/dL 70-105 PRN - repeat glucose levels every 1 hour or as specified by insulin titration orders until glucose level is less than 450 mg/dLCheck Serum Potassium level 2 hours after oral potassium replacement completed or 30 min after intravenous potassium replacement.BASIC METABOLIC [id number] 00:09:00 Test Item Value Reference Range Comments SODIUM (BEAKER) (test 142 meq/L 136-145 hnda=352) POTASSIUM (BEAKER) (test 3.8 meq/L 3.5-5.1 wivo=497) CHLORIDE (BEAKER) (test 105 meq/L 98-107 pzzx=970) CO2 (BEAKER) (test 30 meq/L 22-29 mcnf=785) BLOOD UREA NITROGEN 37 mg/dL 7-21 (BEAKER) (test dqev=191) CREATININE (BEAKER) (test 1.80 mg/dL 0.57-1.25 krwz=561) GLUCOSE RANDOM (BEAKER) 155 mg/dL 70-105 (test ywxs=419) CALCIUM (BEAKER) (test 8.8 mg/dL 8.4-10.2 hlne=351) EGFR (BEAKER) (test 34 mL/min/1.73 sq m ESTIMATED GFR IS NOT gqnw=7507) ACCURATE CREATININE CLEARANCE IN PREDICTING GLOMERULAR FILTRATION RATE. ESTIMATED GFR IS NOT APPLICABLE FOR DIALYSIS PATIENTS. PRN - repeat glucose levels every 1 hour or as specified by insulin titration orders until glucose level is less than 450 mg/dLCheck Serum Potassium level 2 hours after oral potassium replacement completed or 30 min after intravenous potassium replacement.[id number] 00:06:00 Test Item Value Reference Range Comments PARTIAL THROMBOPLASTIN TIME (BEAKER) (test 62.0 seconds 22.5-36.0 zfwb=785) BLOOD GAS, [id number] 20:39:00 Test Item Value Reference Range Comments PH ARTERIAL (BEAKER) (test eixh=045) 7.45 7.35-7.45 PCO2 ARTERIAL (BEAKER) (test cswm=090) 46 mmHg 35-45 PO2 ARTERIAL (BEAKER) (test gahq=241) 64 mmHg 80-90 O2 SATURATION ARTERIAL (BEAKER) (test fysc=319) 92.0 % 96.0-97.0 HCO3 ARTERIAL (BEAKER) (test mbmr=405) 31 mmol/L 21-29 BASE EXCESS ARTERIAL (BEAKER) (test ojoq=625) 6.7 mmol/L -2.0-3.0 PATIENT TEMPERATURE (BEAKER) (test vdqt=9402) 38.1 C FIO2 (BEAKER) (test qkuh=7162) 80.0 % POTASSIUM-STAT [id number] 20:39:00 Test Item Value Reference Range Comments POTASSIUM (BEAKER) (test rkyj=956) 3.4 meq/L 3.6-5.5 [id number] 20:16:00 Test Item Value Reference Range Comments FERRITIN (BEAKER) (test feku=799) 651 ng/mL 5-275 POCT-GLUCOSE [id number] 20:10:00 Test Item Value Reference Range Comments POC-GLUCOSE METER (BEAKER) 180 mg/dL 70-110 TESTED AT [facility] [address] [facility] (test ktcl=9947) [facility] [address] POCT-GLUCOSE [id number] 20:10:00 Test Item Value Reference Range Comments POC-GLUCOSE METER (BEAKER) 197 mg/dL 70-110 TESTED AT [facility] [address] [facility] (test twpo=9785) [facility] [address] [id number] 19:54:00 Test Item Value Reference Range Comments PARTIAL THROMBOPLASTIN TIME (BEAKER) (test 62.4 seconds 22.5-36.0 nlow=793) [id number] 19:53:00 Test Item Value Reference Range Comments MAGNESIUM (BEAKER) (test tsbt=548) 2.2 mg/dL 1.6-2.6 HEPATITIS A ANTIBODY, [id number] 19:25:00 Test Item Value Reference Range Comments HEPATITIS A IGG ANTIBODY (BEAKER) (test oezd=0510) Reactive Nonreactive GLUCOSE-STAT [id number] 19:24:00 Test Item Value Reference Range Comments GLUCOSE RANDOM (BEAKER) (test hvdc=002) 174 mg/dL 70-110 HGB/HCT (H&H) - STAT [id number] 19:24:00 Test Item Value Reference Range Comments HEMOGLOBIN (BEAKER) (test rycc=517) 10.1 g/dL 12.0-15.0 HEMATOCRIT (BEAKER) (test rxfc=770) 30.0 % 36.0-45.0 POTASSIUM-STAT [id number] 19:24:00 Test Item Value Reference Range Comments POTASSIUM (BEAKER) (test hjnd=977) 3.4 meq/L 3.6-5.5 HEPATITIS B CORE ANTIBODY, [id number] 19:21:00 Test Item Value Reference Range Comments HEPATITIS B CORE TOTAL ANTIBODY (BEAKER) (test Nonreactive Nonreactive nlvm=684) HEPATITIS PANEL, [id number] 19:21:00 Test Item Value Reference Range Comments HEPATITIS A IGM ANTIBODY (BEAKER) (test Nonreactive Nonreactive pskw=855) HEPATITIS B CORE IGM ANTIBODY (BEAKER) (test Nonreactive Nonreactive enlm=109) HEPATITIS C ANTIBODY (BEAKER) (test uyyr=809) Nonreactive Nonreactive HEPATITIS B SURFACE ANTIGEN (2) (BEAKER) (test Nonreactive Nonreactive mplk=8257) HIV-1 ANTIGEN WITH HIV-1/2 [id number] 19:21:00 Test Item Value Reference Range Comments HIV-1 ANTIGEN WITH HIV 1\T\2 ANTIBODY (2) Nonreactive Nonreactive (BEAKER) (test mcvq=4042) BASIC METABOLIC [id number] 18:05:00 Test Item Value Reference Range Comments SODIUM (BEAKER) (test 141 meq/L 136-145 xghm=406) POTASSIUM (BEAKER) (test 4.0 meq/L 3.5-5.1 iqac=915) CHLORIDE (BEAKER) (test 104 meq/L 98-107 xozy=339) CO2 (BEAKER) (test 26 meq/L 22-29 cgmo=670) BLOOD UREA NITROGEN 41 mg/dL 7-21 (BEAKER) (test igio=354) CREATININE (BEAKER) (test 2.07 mg/dL 0.57-1.25 hucf=542) GLUCOSE RANDOM (BEAKER) 242 mg/dL 70-105 (test thfd=112) CALCIUM (BEAKER) (test 8.9 mg/dL 8.4-10.2 qmlp=111) EGFR (BEAKER) (test 29 mL/min/1.73 sq m ESTIMATED GFR IS NOT zohc=4924) ACCURATE CREATININE CLEARANCE IN PREDICTING GLOMERULAR FILTRATION RATE. ESTIMATED GFR IS NOT APPLICABLE FOR DIALYSIS PATIENTS. Check Serum Potassium level 2 hours after oral potassium replacement completed or 30 min after intravenous potassium replacement.[id number] 18:02:00 Test Item Value Reference Range Comments POTASSIUM (BEAKER) (test kbgj=575) 4.0 meq/L 3.5-5.1 Check Serum Potassium level 2 hours after oral potassium replacement completed or 30 min after intravenous potassium replacement.[id number] 18:02:00 Test Item Value Reference Range Comments MAGNESIUM (BEAKER) (test gdoz=870) 2.2 mg/dL 1.6-2.6 Check Serum Potassium level 2 hours after oral potassium replacement completed or 30 min after intravenous potassium replacement.[id number] 18:02:00 Test Item Value Reference Range Comments PHOSPHORUS (BEAKER) (test debl=977) 2.1 mg/dL 2.3-4.7 Check Serum Potassium level 2 hours after oral potassium replacement completed or 30 min after intravenous potassium replacement.POCT-GLUCOSE [id number] 17:31:00 Test Item Value Reference Range Comments POC-GLUCOSE METER (BEAKER) 253 mg/dL 70-110 TESTED AT [address] (test ukfe=1750) [place] [id number] VITAMIN D, [id number] 17:31:00 Test Item Value Reference Range Comments VITAMIN D 25-OH (BEAKER) (test vokh=7168) 5.8 ng/mL 6.6-49.9 Effective 01/12/2017: Reference Range ChangeNew: 6.6-49.9 ng/mL Previous: 13.0 -47.8 ng/mLRecommended Vitamin D Target Range: 30.0-40.0 ng/mLPOCT-GLUCOSE [id number] 17:31:00 Test Item Value Reference Range Comments POC-GLUCOSE METER (BEAKER) 269 mg/dL 70-110 TESTED AT [address] (test dlkw=8707) [place] [id number] [id number] 17:09:00 Test Item Value Reference Range Comments TRANSFERRIN (BEAKER) (test tppl=638) 166 mg/dL 174-382 [id number] 17:09:00 Test Item Value Reference Range Comments PREALBUMIN (BEAKER) (test juuv=512) 14 mg/dL 14-45 IRON, [id number] 17:09:00 Test Item Value Reference Range Comments IRON (BEAKER) (test yxib=113) 57 ug/dL 40-160 TROPONIN [id number] 16:59:00 Test Item Value Reference Range Comments TROPONIN I (BEAKER) (test ubyf=319) 45.70 ng/mL 0.00-0.03 Troponin I (TnI) levels [...] failure, acidosis, acute neurological disease, and persistent tachyarrhythmia.[id number] 16:49:00 Test Item Value Reference Range Comments CREATININE (BEAKER) (test 2.17 mg/dL 0.57-1.25 quix=550) EGFR (BEAKER) (test 27 mL/min/1.73 sq m ESTIMATED GFR IS NOT remq=3390) ACCURATE CREATININE CLEARANCE IN PREDICTING GLOMERULAR FILTRATION RATE. ESTIMATED GFR IS NOT APPLICABLE FOR DIALYSIS PATIENTS. URIC [id number] 16:48:00 Test Item Value Reference Range Comments URIC ACID (BEAKER) (test ftjz=819) 8.2 mg/dL 2.6-7.2 LIPID [id number] 16:48:00 Test Item Value Reference Range Comments TRIGLYCERIDES (BEAKER) (test yzmk=827) 122 mg/dL CHOLESTEROL (BEAKER) (test jtob=123) 204 mg/dL HDL CHOLESTEROL (BEAKER) (test cbmx=622) 85 mg/dL LDL CHOLESTEROL CALCULATED (BEAKER) (test 95 mg/dL xjxw=213) Triglyceride Reference Range: Low Risk <150 Borderline 150- 199 High Risk 200-499 Very High Risk >=500Cholesterol Reference Range: Low Risk <200 Borderline 200-239 High Risk > 240HDL Cholesterol Reference Range: Low Risk >=60 High Risk <40LDL Cholesterol Reference Range: Optimal <100 Near Optimal 100-129 Borderline 130-159 High 160-189 Very High >=[id number] 16:48:00 Test Item Value Reference Range Comments AMYLASE (BEAKER) (test wzro=995) 228 U/L 25-125 GAMMA GLUTAMYL TRANSFERASE (GGT)2017-07-21 16:48:00 Test Item Value Reference Range Comments GAMMA GLUTAMYL TRANSFERASE (BEAKER) (test teio=223) 52 U/L 9-64 RETICULOCYTE [id number] 16:39:00 Test Item Value Reference Range Comments RETICULOCYTE COUNT PCT (BEAKER) (test nxdj=291) 3.8 % 0.5-1.7 TROPONIN [id number] 13:49:00 Test Item Value Reference Range Comments TROPONIN I (BEAKER) (test axtd=706) 43.19 ng/mL 0.00-0.03 Troponin I (TnI) levels [...] acute neurological disease, and persistent tachyarrhythmia.BASIC METABOLIC [id number] 12:22:00 Test Item Value Reference Range Comments SODIUM (BEAKER) (test 141 meq/L 136-145 eizl=235) POTASSIUM (BEAKER) (test 3.9 meq/L 3.5-5.1 bqbs=652) CHLORIDE (BEAKER) (test 102 meq/L 98-107 ajnx=946) CO2 (BEAKER) (test 28 meq/L 22-29 niam=508) BLOOD UREA NITROGEN 40 mg/dL 7-21 (BEAKER) (test mtuz=011) CREATININE (BEAKER) (test 2.20 mg/dL 0.57-1.25 xagd=858) GLUCOSE RANDOM (BEAKER) 238 mg/dL 70-105 (test jfhq=885) CALCIUM (BEAKER) (test 8.9 mg/dL 8.4-10.2 lksw=426) EGFR (BEAKER) (test 27 mL/min/1.73 sq m ESTIMATED GFR IS NOT gxiu=1492) ACCURATE CREATININE CLEARANCE IN PREDICTING GLOMERULAR FILTRATION RATE. ESTIMATED GFR IS NOT APPLICABLE FOR DIALYSIS PATIENTS. [id number] 12:17:00 Test Item Value Reference Range Comments POTASSIUM (BEAKER) (test xsft=133) 3.9 meq/L 3.5-5.1 [id number] 12:17:00 Test Item Value Reference Range Comments MAGNESIUM (BEAKER) (test dupz=078) 2.4 mg/dL 1.6-2.6 [id number] 12:17:00 Test Item Value Reference Range Comments PHOSPHORUS (BEAKER) (test bafi=979) 3.7 mg/dL 2.3-4.7 [id number] 12:17:00 Test Item Value Reference Range Comments GLUCOSE RANDOM (BEAKER) (test zaji=815) 238 mg/dL 70-105 [id number] 12:04:00 Test Item Value Reference Range Comments PARTIAL THROMBOPLASTIN TIME (BEAKER) (test 59.3 seconds 22.5-36.0 kbof=798) SPUTUM CULTURE + GRAM [id number] 11:47:00 Test Item Value Reference Range Comments CULTURE (BEAKER) (test <1+ Normal respiratory pascual zlfm=8114) present GRAM STAIN RESULT (BEAKER) 1+ WBCs (test slcs=6880) GRAM STAIN RESULT (BEAKER) 0-5 epithelial cells (test jarm=40417) GRAM STAIN RESULT (BEAKER) No organisms seen (test gbzd=50426) HEMOGLOBIN AND [id number] 11:26:00 Test Item Value Reference Range Comments HEMOGLOBIN (BEAKER) (test vaxe=099) 7.9 GM/DL 11.2-15.7 HEMATOCRIT (BEAKER) (test pnsw=216) 26.5 % 34.1-44.9 BLOOD GAS, [id number] 10:43:00 Test Item Value Reference Range Comments PH ARTERIAL (BEAKER) (test drbg=578) 7.42 7.35-7.45 PCO2 ARTERIAL (BEAKER) (test vvbc=454) 44 mmHg 35-45 PO2 ARTERIAL (BEAKER) (test fjjp=621) 51 mmHg 80-90 O2 SATURATION ARTERIAL (BEAKER) (test cjuy=725) 88.2 % 96.0-97.0 HCO3 ARTERIAL (BEAKER) (test tmjc=001) 28 mmol/L 21-29 BASE EXCESS ARTERIAL (BEAKER) (test dxza=166) 3.2 mmol/L -2.0-3.0 PATIENT TEMPERATURE (BEAKER) (test pkhe=4658) 36.0 C FIO2 (BEAKER) (test xchj=0723) 80.0 % URINE [id number] 09:44:00 Test Item Value Reference Range Comments CULTURE (BEAKER) (test cvol=3141) No growth BASIC METABOLIC [id number] 06:28:00 Test Item Value Reference Range Comments SODIUM (BEAKER) (test 141 meq/L 136-145 msdh=994) POTASSIUM (BEAKER) (test 4.1 meq/L 3.5-5.1 ycgz=144) CHLORIDE (BEAKER) (test 101 meq/L 98-107 tpjm=381) CO2 (BEAKER) (test 29 meq/L 22-29 cxad=675) BLOOD UREA NITROGEN 40 mg/dL 7-21 (BEAKER) (test acbv=177) CREATININE (BEAKER) (test 2.46 mg/dL 0.57-1.25 ownw=528) GLUCOSE RANDOM (BEAKER) 236 mg/dL 70-105 (test wmtj=540) CALCIUM (BEAKER) (test 8.6 mg/dL 8.4-10.2 bfzw=783) EGFR (BEAKER) (test 24 mL/min/1.73 sq m ESTIMATED GFR IS NOT qlfv=3357) ACCURATE CREATININE CLEARANCE IN PREDICTING GLOMERULAR FILTRATION RATE. ESTIMATED GFR IS NOT APPLICABLE FOR DIALYSIS PATIENTS. [id number] 06:26:00 Test Item Value Reference Range Comments PHOSPHORUS (BEAKER) (test qjcu=566) 4.6 mg/dL 2.3-4.7 POCT-GLUCOSE [id number] 06:05:00 Test Item Value Reference Range Comments POC-GLUCOSE METER (BEAKER) 278 mg/dL 70-110 TESTED AT [address] (test urun=0577) [facility] [address] POCT-GLUCOSE [id number] 06:05:00 Test Item Value Reference Range Comments POC-GLUCOSE METER (BEAKER) 231 mg/dL 70-110 TESTED AT [address] (test bxzl=6031) [place] [id number] POCT-GLUCOSE [id number] 06:05:00 Test Item Value Reference Range Comments POC-GLUCOSE METER (BEAKER) 190 mg/dL 70-110 TESTED AT [address] (test fvmp=7826) [place] [id number] 05:56:00 Test Item Value Reference Range Comments PARTIAL THROMBOPLASTIN TIME (BEAKER) (test 72.5 seconds 22.5-36.0 ppjz=846) RAD, CHEST, 1 VIEW, NON [id number] 04:38:00Reason for exam:->respiratory insufficiencyFINAL REPORT CLINICAL INDICATION: Respiratory insufficiency Comparison: 07/20/2017 The cardiomediastinal contours are stable. Central pulmonary vascular prominence and bilateral parenchymal opacities are similar within variation of acquisition technique. There is no pneumothorax. A femoral Impella device is stable in position. Signed: Adelso Sorensen MDReport Verified Date/Time:07/21/2017 04:38:32 Reading Location: [address] Reading Room BASIC METABOLIC [id number] 04:06:00 Test Item Value Reference Range Comments SODIUM (BEAKER) (test 142 meq/L 136-145 mekb=920) POTASSIUM (BEAKER) (test 3.9 meq/L 3.5-5.1 guhb=566) CHLORIDE (BEAKER) (test 102 meq/L 98-107 djzi=378) CO2 (BEAKER) (test 31 meq/L 22-29 yegc=571) BLOOD UREA NITROGEN 40 mg/dL 7-21 (BEAKER) (test hxzc=728) CREATININE (BEAKER) (test 2.37 mg/dL 0.57-1.25 iqbl=794) GLUCOSE RANDOM (BEAKER) 206 mg/dL 70-105 (test dxkp=962) CALCIUM (BEAKER) (test 8.5 mg/dL 8.4-10.2 tgxq=647) EGFR (BEAKER) (test 25 mL/min/1.73 sq m ESTIMATED GFR IS NOT yzbw=3816) ACCURATE CREATININE CLEARANCE IN PREDICTING GLOMERULAR FILTRATION RATE. ESTIMATED GFR IS NOT APPLICABLE FOR DIALYSIS PATIENTS. BLOOD GAS, [id number] 03:53:00 Test Item Value Reference Range Comments PH ARTERIAL (BEAKER) (test lncw=860) 7.36 7.35-7.45 PCO2 ARTERIAL (BEAKER) (test vogj=665) 55 mmHg 35-45 PO2 ARTERIAL (BEAKER) (test qllb=915) 94 mmHg 80-90 O2 SATURATION ARTERIAL (BEAKER) (test vvub=641) 96.0 % 96.0-97.0 HCO3 ARTERIAL (BEAKER) (test tkqg=696) 30 mmol/L 21-29 BASE EXCESS ARTERIAL (BEAKER) (test icli=944) 4.2 mmol/L -2.0-3.0 PATIENT TEMPERATURE (BEAKER) (test cnds=1198) 38.8 C FIO2 (BEAKER) (test hosr=1538) 80.0 % CALCIUM, [id number] 03:51:00 Test Item Value Reference Range Comments CALCIUM IONIZED (BEAKER) (test emao=822) 1.07 mmol/L 1.12-1.27 PH, BLOOD (BEAKER) (test wjdb=5989) 7.35 OXYGEN SATURATION, [id number] 03:50:00 Test Item Value Reference Range Comments O2 SATURATION (MEASURED) (BEAKER) (test wybu=1291) 72.6 % [id number] 03:47:00 Test Item Value Reference Range Comments PHOSPHORUS (BEAKER) (test dzku=700) 4.5 mg/dL 2.3-4.7 [id number] 03:47:00 Test Item Value Reference Range Comments MAGNESIUM (BEAKER) (test flpc=899) 2.1 mg/dL 1.6-2.6 HEPATIC FUNCTION [id number] 03:47:00 Test Item Value Reference Range Comments TOTAL PROTEIN (BEAKER) (test fdhi=081) 6.1 gm/dL 6.0-8.3 ALBUMIN (BEAKER) (test icwq=1408) 3.1 g/dL 3.5-5.0 BILIRUBIN TOTAL (BEAKER) (test nyfq=642) 1.4 mg/dL 0.2-1.2 BILIRUBIN DIRECT (BEAKER) (test kfkd=866) 0.6 mg/dL 0.1-0.5 ALKALINE PHOSPHATASE (BEAKER) (test kbbl=378) 45 U/L 40-150 AST (SGOT) (BEAKER) (test osfp=076) 94 U/L 5-34 ALT (SGPT) (BEAKER) (test ytmx=591) 48 U/L 6-55 LACTATE DEHYDROGENASE (LDH)2017-07-21 03:47:00 Test Item Value Reference Range Comments LACTATE DEHYDROGENASE (BEAKER) (test mjmi=566) 1470 U/L 125-220 CBC W/PLT COUNT & AUTO [id number] 03:41:00 Test Item Value Reference Range Comments WHITE BLOOD CELL COUNT (BEAKER) (test azfg=424) 14.1 K/ L 3.5-10.5 RED BLOOD CELL COUNT (BEAKER) (test vycq=468) 2.81 M/ L 3.93-5.22 HEMOGLOBIN (BEAKER) (test bkho=508) 8.6 GM/DL 11.2-15.7 HEMATOCRIT (BEAKER) (test rflc=606) 28.2 % 34.1-44.9 MEAN CORPUSCULAR VOLUME (BEAKER) (test epex=120) 100.4 fL 79.4-94.8 MEAN CORPUSCULAR HEMOGLOBIN (BEAKER) (test 30.6 pg 25.6-32.2 adqj=360) MEAN CORPUSCULAR HEMOGLOBIN CONC (BEAKER) (test 30.5 GM/DL 32.2-35.5 jgco=511) RED CELL DISTRIBUTION WIDTH (BEAKER) (test 13.1 % 11.7-14.4 kxxa=073) PLATELET COUNT (BEAKER) (test thvp=254) 140 K/CU MM 150-450 MEAN PLATELET VOLUME (BEAKER) (test ieig=067) 11.1 fL 9.4-12.3 NUCLEATED RED BLOOD CELLS (BEAKER) (test 0 /100 WBC 0-0 swpr=450) NEUTROPHILS RELATIVE PERCENT (BEAKER) (test 86 % bpvq=592) LYMPHOCYTES RELATIVE PERCENT (BEAKER) (test 6 % ohsm=188) MONOCYTES RELATIVE PERCENT (BEAKER) (test 8 % ntww=534) EOSINOPHILS RELATIVE PERCENT (BEAKER) (test 0 % dkij=735) BASOPHILS RELATIVE PERCENT (BEAKER) (test 0 % dltv=502) NEUTROPHILS ABSOLUTE COUNT (BEAKER) (test 12.13 K/ L 1.56-6.13 wfgb=826) LYMPHOCYTES ABSOLUTE COUNT (BEAKER) (test 0.81 K/ L 1.18-3.74 tdby=467) MONOCYTES ABSOLUTE COUNT (BEAKER) (test 1.07 K/ L 0.24-0.36 tiwl=921) EOSINOPHILS ABSOLUTE COUNT (BEAKER) (test 0.00 K/ L 0.04-0.36 nqig=592) BASOPHILS ABSOLUTE COUNT (BEAKER) (test 0.02 K/ L 0.01-0.08 ckxl=903) IMMATURE GRANULOCYTES-RELATIVE PERCENT (BEAKER) 1 % 0-1 (test prgh=2546) LACTIC ACID, ARTERIAL, WHOLE [id number] 03:39:00 Test Item Value Reference Range Comments LACTATE BLOOD ARTERIAL (2) (BEAKER) (test 0.9 mmol/L 0.5-2.2 ubbb=4136) Effective 08/06/2015: Units/Reference Range ChangeNew: 0.5-2.2 mmol/L Previous: 5 -20 mg/dLTROPONIN [id number] 00:12:00 Test Item Value Reference Range Comments TROPONIN I (BEAKER) (test dabr=528) 60.74 ng/mL 0.00-0.03 Troponin I (TnI) levels [...] failure, acidosis, acute neurological disease, and persistent tachyarrhythmia.[id number] 23:42:00 Test Item Value Reference Range Comments PHOSPHORUS (BEAKER) (test cbyp=683) 4.9 mg/dL 2.3-4.7 BASIC METABOLIC [id number] 23:42:00 Test Item Value Reference Range Comments SODIUM (BEAKER) (test 141 meq/L 136-145 jxxv=221) POTASSIUM (BEAKER) (test 4.2 meq/L 3.5-5.1 rbge=854) CHLORIDE (BEAKER) (test 102 meq/L 98-107 dqli=344) CO2 (BEAKER) (test 29 meq/L 22-29 wqmr=101) BLOOD UREA NITROGEN 40 mg/dL 7-21 (BEAKER) (test drjx=750) CREATININE (BEAKER) (test 2.36 mg/dL 0.57-1.25 weta=462) GLUCOSE RANDOM (BEAKER) 200 mg/dL 70-105 (test iaxx=693) CALCIUM (BEAKER) (test 8.4 mg/dL 8.4-10.2 pwca=915) EGFR (BEAKER) (test 25 mL/min/1.73 sq m ESTIMATED GFR IS NOT mybx=9858) ACCURATE CREATININE CLEARANCE IN PREDICTING GLOMERULAR FILTRATION RATE. ESTIMATED GFR IS NOT APPLICABLE FOR DIALYSIS PATIENTS. [id number] 23:39:00 Test Item Value Reference Range Comments PARTIAL THROMBOPLASTIN TIME (BEAKER) (test 78.1 seconds 22.5-36.0 meol=452) POCT-GLUCOSE [id number] 23:28:00 Test Item Value Reference Range Comments POC-GLUCOSE METER (BEAKER) 250 mg/dL 70-110 TESTED AT [facility] [address] [facility] (test gnbw=1258) [facility] [address] POCT-GLUCOSE [id number] 22:19:00 Test Item Value Reference Range Comments POC-GLUCOSE METER (BEAKER) 202 mg/dL 70-110 TESTED AT [address] (test caha=6008) [facility] [address] HEPATIC FUNCTION [id number] 21:45:00 Test Item Value Reference Range Comments TOTAL PROTEIN (BEAKER) (test mbru=967) 5.9 gm/dL 6.0-8.3 ALBUMIN (BEAKER) (test kgdh=8110) 3.1 g/dL 3.5-5.0 BILIRUBIN TOTAL (BEAKER) (test gjhw=830) 1.0 mg/dL 0.2-1.2 BILIRUBIN DIRECT (BEAKER) (test fdfn=004) 0.5 mg/dL 0.1-0.5 ALKALINE PHOSPHATASE (BEAKER) (test mipb=118) 46 U/L 40-150 AST (SGOT) (BEAKER) (test dauv=359) 95 U/L 5-34 ALT (SGPT) (BEAKER) (test ldsq=410) 47 U/L 6-55 BASIC METABOLIC [id number] 21:45:00 Test Item Value Reference Range Comments SODIUM (BEAKER) (test 141 meq/L 136-145 mgnp=978) POTASSIUM (BEAKER) (test 4.0 meq/L 3.5-5.1 hxsi=064) CHLORIDE (BEAKER) (test 103 meq/L 98-107 hhvn=360) CO2 (BEAKER) (test 27 meq/L 22-29 jtak=758) BLOOD UREA NITROGEN 40 mg/dL 7-21 (BEAKER) (test achi=638) CREATININE (BEAKER) (test 2.30 mg/dL 0.57-1.25 osfk=368) GLUCOSE RANDOM (BEAKER) 192 mg/dL 70-105 (test ksym=969) CALCIUM (BEAKER) (test 8.4 mg/dL 8.4-10.2 mzpe=447) EGFR (BEAKER) (test 25 mL/min/1.73 sq m ESTIMATED GFR IS NOT mucq=2642) ACCURATE CREATININE CLEARANCE IN PREDICTING GLOMERULAR FILTRATION RATE. ESTIMATED GFR IS NOT APPLICABLE FOR DIALYSIS PATIENTS. [id number] 21:38:00 Test Item Value Reference Range Comments MAGNESIUM (BEAKER) (test vjvk=074) 2.1 mg/dL 1.6-2.6 LACTIC ACID, ARTERIAL, WHOLE [id number] 21:32:00 Test Item Value Reference Range Comments LACTATE BLOOD ARTERIAL (2) (BEAKER) (test 0.6 mmol/L 0.5-2.2 pfdl=4152) Effective 08/06/2015: Units/Reference Range ChangeNew: 0.5-2.2 mmol/L Previous: 5 -20 mg/dLPOCT-GLUCOSE [id number] 21:21:00 Test Item Value Reference Range Comments POC-GLUCOSE METER (BEAKER) 198 mg/dL 70-110 TESTED AT [address] (test xnye=8235) [facility] [address] POCT-GLUCOSE [id number] 21:21:00 Test Item Value Reference Range Comments POC-GLUCOSE METER (BEAKER) 155 mg/dL 70-110 TESTED AT [address] (test nqsl=6486) [facility] [address] POCT-GLUCOSE [id number] 21:21:00 Test Item Value Reference Range Comments POC-GLUCOSE METER (BEAKER) 67 mg/dL 70-110 TESTED AT [address] (test hdyz=2700) [facility] [address] BLOOD GAS, [id number] 21:16:00 Test Item Value Reference Range Comments PH ARTERIAL (BEAKER) (test xblo=986) 7.34 7.35-7.45 PCO2 ARTERIAL (BEAKER) (test kgzs=818) 56 mmHg 35-45 PO2 ARTERIAL (BEAKER) (test etoj=753) 107 mmHg 80-90 O2 SATURATION ARTERIAL (BEAKER) (test vzoc=353) 97.3 % 96.0-97.0 HCO3 ARTERIAL (BEAKER) (test xuts=622) 29 mmol/L 21-29 BASE EXCESS ARTERIAL (BEAKER) (test fwpa=131) 2.7 mmol/L -2.0-3.0 PATIENT TEMPERATURE (BEAKER) (test ylak=8405) 37.8 C FIO2 (BEAKER) (test zkik=4866) 100.0 % GLUCOSE-STAT [id number] 21:16:00 Test Item Value Reference Range Comments GLUCOSE RANDOM (BEAKER) (test mrjv=497) 188 mg/dL 70-110 HGB/HCT (H&H) - STAT [id number] 21:16:00 Test Item Value Reference Range Comments HEMOGLOBIN (BEAKER) (test jwxj=262) 9.9 g/dL 12.0-15.0 HEMATOCRIT (BEAKER) (test noel=447) 29.0 % 36.0-45.0 SODIUM NA-STAT [id number] 21:15:00 Test Item Value Reference Range Comments SODIUM (BEAKER) (test muti=893) 140 meq/L 135-148 POTASSIUM-STAT [id number] 21:15:00 Test Item Value Reference Range Comments POTASSIUM (BEAKER) (test inai=577) 3.9 meq/L 3.6-5.5 BLOOD GAS, [id number] 19:44:00 Test Item Value Reference Range Comments PH ARTERIAL (BEAKER) (test sylk=922) 7.34 7.35-7.45 PCO2 ARTERIAL (BEAKER) (test lcpi=713) 31 mmHg 35-45 PO2 ARTERIAL (BEAKER) (test kola=608) 68 mmHg 80-90 O2 SATURATION ARTERIAL (BEAKER) (test qvkw=294) 92.1 % 96.0-97.0 HCO3 ARTERIAL (BEAKER) (test kqcu=829) 16 mmol/L 21-29 BASE EXCESS ARTERIAL (BEAKER) (test izfx=340) -8.7 mmol/L -2.0-3.0 PATIENT TEMPERATURE (BEAKER) (test dqti=0110) 37.7 C FIO2 (BEAKER) (test obdj=1040) 50.0 % POCT-GLUCOSE [id number] 18:30:00 Test Item Value Reference Range Comments POC-GLUCOSE METER (BEAKER) 90 mg/dL 70-110 TESTED AT [facility] [address] [facility] (test huuc=1917) [facility] [address] TROPONIN [id number] 18:05:00 Test Item Value Reference Range Comments TROPONIN I (BEAKER) (test kbyh=851) 76.69 ng/mL 0.00-0.03 Troponin I (TnI) levels [...] acute neurological disease, and persistent tachyarrhythmia.BASIC METABOLIC [id number] 17:56:00 Test Item Value Reference Range Comments SODIUM (BEAKER) (test 143 meq/L 136-145 uxrx=909) POTASSIUM (BEAKER) (test 3.8 meq/L 3.5-5.1 hvks=646) CHLORIDE (BEAKER) (test 104 meq/L 98-107 upzb=063) CO2 (BEAKER) (test 29 meq/L 22-29 kgev=329) BLOOD UREA NITROGEN 37 mg/dL 7-21 (BEAKER) (test khgw=536) CREATININE (BEAKER) (test 2.45 mg/dL 0.57-1.25 bcvd=557) GLUCOSE RANDOM (BEAKER) 107 mg/dL 70-105 (test gnop=530) CALCIUM (BEAKER) (test 8.6 mg/dL 8.4-10.2 ncjr=800) EGFR (BEAKER) (test 24 mL/min/1.73 sq m ESTIMATED GFR IS NOT djmt=7950) ACCURATE CREATININE CLEARANCE IN PREDICTING GLOMERULAR FILTRATION RATE. ESTIMATED GFR IS NOT APPLICABLE FOR DIALYSIS PATIENTS. [id number] 17:43:00 Test Item Value Reference Range Comments PHOSPHORUS (BEAKER) (test pjrb=160) 4.8 mg/dL 2.3-4.7 [id number] 17:43:00 Test Item Value Reference Range Comments MAGNESIUM (BEAKER) (test dpnl=517) 2.4 mg/dL 1.6-2.6 [id number] 17:34:00 Test Item Value Reference Range Comments PARTIAL THROMBOPLASTIN TIME (BEAKER) (test 101.4 seconds 22.5-36.0 sryc=912) BLOOD GAS, [id number] 17:23:00 Test Item Value Reference Range Comments PH ARTERIAL (BEAKER) (test vsic=201) 7.36 7.35-7.45 PCO2 ARTERIAL (BEAKER) (test gchb=212) 60 mmHg 35-45 PO2 ARTERIAL (BEAKER) (test hgfc=499) 82 mmHg 80-90 O2 SATURATION ARTERIAL (BEAKER) (test vhoq=242) 95.1 % 96.0-97.0 HCO3 ARTERIAL (BEAKER) (test kujc=299) 33 mmol/L 21-29 BASE EXCESS ARTERIAL (BEAKER) (test mptc=335) 6.0 mmol/L -2.0-3.0 PATIENT TEMPERATURE (BEAKER) (test bkji=2392) 37.4 C FIO2 (BEAKER) (test tdtg=4035) 70.0 % GLUCOSE-STAT [id number] 17:20:00 Test Item Value Reference Range Comments GLUCOSE RANDOM (BEAKER) (test rmye=850) 106 mg/dL 70-110 POCT-GLUCOSE [id number] 16:32:00 Test Item Value Reference Range Comments POC-GLUCOSE METER (AKER) 115 mg/dL 70-110 TESTED AT [address] (test rvjp=5103) [facility] [address] VANCOMYCIN LEVEL, [id number] 16:10:00 Test Item Value Reference Range Comments VANCOMYCIN TROUGH (AKER) (test qder=013) 17.0 ug/mL 10.0-20.0 POCT-GLUCOSE [id number] 15:32:00 Test Item Value Reference Range Comments POC-GLUCOSE METER (BEAKER) 119 mg/dL 70-110 TESTED AT [address] (test hkjz=1706) [facility] [address] TROPONIN [id number] 13:14:00 Test Item Value Reference Range Comments TROPONIN I (BEAKER) (test wbnt=838) 81.57 ng/mL 0.00-0.03 Troponin I (TnI) levels [...] acute neurological disease, and persistent tachyarrhythmia.BASIC METABOLIC [id number] 12:49:00 Test Item Value Reference Range Comments SODIUM (BEAKER) (test 140 meq/L 136-145 tnox=871) POTASSIUM (BEAKER) (test 3.6 meq/L 3.5-5.1 Specimen slightly govf=684) hemolyzed CHLORIDE (BEAKER) (test 104 meq/L 98-107 ratc=974) CO2 (BEAKER) (test 27 meq/L 22-29 rvvh=536) BLOOD UREA NITROGEN 37 mg/dL 7-21 (BEAKER) (test giau=858) CREATININE (BEAKER) (test 2.35 mg/dL 0.57-1.25 Specimen slightly dxrr=128) hemolyzed GLUCOSE RANDOM (BEAKER) 192 mg/dL 70-105 (test tmrc=815) CALCIUM (BEAKER) (test 8.1 mg/dL 8.4-10.2 nkhj=334) EGFR (BEAKER) (test 25 mL/min/1.73 sq m ESTIMATED GFR IS NOT wdgk=1420) ACCURATE CREATININE CLEARANCE IN PREDICTING GLOMERULAR FILTRATION RATE. ESTIMATED GFR IS NOT APPLICABLE FOR DIALYSIS PATIENTS. [id number] 12:46:00 Test Item Value Reference Range Comments MAGNESIUM (BEAKER) (test 2.2 mg/dL 1.6-2.6 Specimen slightly hemolyzed vmfv=015) [id number] 12:46:00 Test Item Value Reference Range Comments PHOSPHORUS (BEAKER) (test 4.6 mg/dL 2.3-4.7 Specimen slightly hemolyzed edwx=597) POCT-GLUCOSE [id number] 12:16:00 Test Item Value Reference Range Comments POC-GLUCOSE METER (BEAKER) 210 mg/dL 70-110 TESTED AT [address] (test mxji=6254) [place] [id number] POCT-GLUCOSE [id number] 12:16:00 Test Item Value Reference Range Comments POC-GLUCOSE METER (BEAKER) 247 mg/dL 70-110 TESTED AT [address] (test mmpl=2879) [place] [id number] POCT-GLUCOSE [id number] 12:16:00 Test Item Value Reference Range Comments POC-GLUCOSE METER (BEAKER) 174 mg/dL 70-110 TESTED AT [address] (test gupr=9965) [place] [id number] BLOOD GAS, [id number] 12:14:00 Test Item Value Reference Range Comments PH ARTERIAL (BEAKER) (test jsgx=972) 7.36 7.35-7.45 PCO2 ARTERIAL (BEAKER) (test ywcd=139) 56 mmHg 35-45 PO2 ARTERIAL (BEAKER) (test rkxd=918) 65 mmHg 80-90 O2 SATURATION ARTERIAL (BEAKER) (test jfae=210) 90.4 % 96.0-97.0 HCO3 ARTERIAL (BEAKER) (test jnmj=034) 31 mmol/L 21-29 BASE EXCESS ARTERIAL (BEAKER) (test ujbp=421) 4.8 mmol/L -2.0-3.0 PATIENT TEMPERATURE (BEAKER) (test xxlh=7301) 38.0 C FIO2 (BEAKER) (test dqti=9778) 60.0 % [id number] 10:58:00 Test Item Value Reference Range Comments PARTIAL THROMBOPLASTIN TIME (BEAKER) (test 99.0 seconds 22.5-36.0 sndw=740) RAD, CHEST, 1 VIEW, NON [id number] 08:30:00Reason for exam:->r/o pleural effusionShould this be [...] No pneumothorax is seen. Signed: Yoshi Martinez [facility] Verified Date/Time: 07/20/2017 08:30:52 Reading Location: [facility] Radiology ReadingRoom BLOOD GAS, [id number] 06 :37:00 Test Item Value Reference Range Comments PH ARTERIAL (BEAKER) (test juox=063) 7.38 7.35-7.45 PCO2 ARTERIAL (BEAKER) (test vapf=487) 50 mmHg 35-45 PO2 ARTERIAL (BEAKER) (test qrzf=229) 97 mmHg 80-90 O2 SATURATION ARTERIAL (BEAKER) (test lnct=687) 96.9 % 96.0-97.0 HCO3 ARTERIAL (BEAKER) (test dmkw=320) 28 mmol/L 21-29 BASE EXCESS ARTERIAL (BEAKER) (test rsvt=787) 2.7 mmol/L -2.0-3.0 PATIENT TEMPERATURE (BEAKER) (test qmyr=1183) 37.8 C FIO2 (BEAKER) (test cfpy=1605) 40.0 % POCT-GLUCOSE [id number] 06:15:00 Test Item Value Reference Range Comments POC-GLUCOSE METER (BEAKER) 114 mg/dL 70-110 TESTED AT [address] (test qbpc=0875) [facility] [address] POCT-GLUCOSE [id number] 06:15:00 Test Item Value Reference Range Comments POC-GLUCOSE METER (BEAKER) 140 mg/dL 70-110 TESTED AT [address] (test gpjl=4669) [facility] [address] POCT-GLUCOSE [id number] 05:23:00 Test Item Value Reference Range Comments POC-GLUCOSE METER (BEAKER) 77 mg/dL 70-110 TESTED AT [address] (test uuuk=7693) [facility] [address] CALCIUM, [id number] 04:34:00 Test Item Value Reference Range Comments CALCIUM IONIZED (BEAKER) (test imeg=992) 1.14 mmol/L 1.12-1.27 PH, BLOOD (BEAKER) (test agak=6043) 7.34 BLOOD GAS, [id number] 04:32:00 Test Item Value Reference Range Comments PH ARTERIAL (BEAKER) (test pgrj=397) 7.32 7.35-7.45 PCO2 ARTERIAL (BEAKER) (test opis=938) 60 mmHg 35-45 PO2 ARTERIAL (BEAKER) (test pdrk=599) 92 mmHg 80-90 O2 SATURATION ARTERIAL (BEAKER) (test sogj=612) 95.9 % 96.0-97.0 HCO3 ARTERIAL (BEAKER) (test gfdt=683) 30 mmol/L 21-29 BASE EXCESS ARTERIAL (BEAKER) (test mhqo=150) 3.2 mmol/L -2.0-3.0 PATIENT TEMPERATURE (BEAKER) (test elac=1761) 37.8 C FIO2 (BEAKER) (test hfvk=7928) 40.0 % COMPREHENSIVE METABOLIC [id number] 04:24:00 Test Item Value Reference Range Comments TOTAL PROTEIN (BEAKER) 6.5 gm/dL 6.0-8.3 (test sbpz=021) ALBUMIN (BEAKER) (test 3.4 g/dL 3.5-5.0 wlze=1192) ALKALINE PHOSPHATASE 47 U/L 40-150 (BEAKER) (test qyxa=581) BILIRUBIN TOTAL (BEAKER) 0.8 mg/dL 0.2-1.2 (test aetd=754) SODIUM (BEAKER) (test 142 meq/L 136-145 oszh=316) POTASSIUM (BEAKER) (test 3.7 meq/L 3.5-5.1 wpxe=103) CHLORIDE (BEAKER) (test 103 meq/L 98-107 cosi=245) CO2 (BEAKER) (test 29 meq/L 22-29 jjzt=392) BLOOD UREA NITROGEN 34 mg/dL 7-21 (BEAKER) (test elwi=532) CREATININE (BEAKER) (test 2.44 mg/dL 0.57-1.25 hcvz=229) GLUCOSE RANDOM (BEAKER) 128 mg/dL 70-105 (test umaf=306) CALCIUM (BEAKER) (test 8.7 mg/dL 8.4-10.2 grgs=643) AST (SGOT) (BEAKER) (test 158 U/L 5-34 uivz=371) ALT (SGPT) (BEAKER) (test 63 U/L 6-55 yplo=096) EGFR (BEAKER) (test 24 mL/min/1.73 sq m ESTIMATED GFR IS NOT fvvq=9409) ACCURATE CREATININE CLEARANCE IN PREDICTING GLOMERULAR FILTRATION RATE. ESTIMATED GFR IS NOT APPLICABLE FOR DIALYSIS PATIENTS. BASIC METABOLIC [id number] 04:24:00 Test Item Value Reference Range Comments SODIUM (BEAKER) (test 142 meq/L 136-145 uqlr=523) POTASSIUM (BEAKER) (test 3.7 meq/L 3.5-5.1 wlok=502) CHLORIDE (BEAKER) (test 103 meq/L 98-107 hfrg=087) CO2 (BEAKER) (test 29 meq/L 22-29 qmoi=123) BLOOD UREA NITROGEN 34 mg/dL 7-21 (BEAKER) (test bngo=905) CREATININE (BEAKER) (test 2.44 mg/dL 0.57-1.25 yqfp=300) GLUCOSE RANDOM (BEAKER) 128 mg/dL 70-105 (test ndbk=661) CALCIUM (BEAKER) (test 8.7 mg/dL 8.4-10.2 oslt=837) EGFR (BEAKER) (test 24 mL/min/1.73 sq m ESTIMATED GFR IS NOT iwps=8419) ACCURATE CREATININE CLEARANCE IN PREDICTING GLOMERULAR FILTRATION RATE. ESTIMATED GFR IS NOT APPLICABLE FOR DIALYSIS PATIENTS. [id number] 04:22:00 Test Item Value Reference Range Comments PHOSPHORUS (BEAKER) (test srta=918) 5.2 mg/dL 2.3-4.7 [id number] 04:22:00 Test Item Value Reference Range Comments MAGNESIUM (BEAKER) (test cgaz=267) 2.4 mg/dL 1.6-2.6 HEPATIC FUNCTION [id number] 04:22:00 Test Item Value Reference Range Comments TOTAL PROTEIN (BEAKER) (test dkmn=553) 6.5 gm/dL 6.0-8.3 ALBUMIN (BEAKER) (test xtpq=7150) 3.4 g/dL 3.5-5.0 BILIRUBIN TOTAL (BEAKER) (test pemf=662) 0.8 mg/dL 0.2-1.2 BILIRUBIN DIRECT (BEAKER) (test jiqc=562) 0.4 mg/dL 0.1-0.5 ALKALINE PHOSPHATASE (BEAKER) (test zmco=766) 47 U/L 40-150 AST (SGOT) (BEAKER) (test yaen=953) 158 U/L 5-34 ALT (SGPT) (BEAKER) (test koss=006) 63 U/L 6-55 [id number] 04:12:00 Test Item Value Reference Range Comments PARTIAL THROMBOPLASTIN TIME (BEAKER) (test 36.8 seconds 22.5-36.0 wgkz=221) Prior to initiating heparinPOCT-GLUCOSE [id number] 04:05:00 Test Item Value Reference Range Comments POC-GLUCOSE METER (BEAKER) 134 mg/dL 70-110 TESTED AT [facility] [address] [facility] (test uofc=6043) [facility] [address] POCT-GLUCOSE [id number] 04:05:00 Test Item Value Reference Range Comments POC-GLUCOSE METER (BEAKER) 122 mg/dL 70-110 TESTED AT [facility] [address] [facility] (test lglo=6585) [facility] [address] POCT-GLUCOSE [id number] 04:05:00 Test Item Value Reference Range Comments POC-GLUCOSE METER (BEAKER) 201 mg/dL 70-110 TESTED AT [place] [id number] [facility] (test xukw=8758) [place] [id number] CBC W/PLT COUNT & AUTO [id number] 04:02:00 Test Item Value Reference Range Comments WHITE BLOOD CELL COUNT (BEAKER) (test coxw=833) 13.6 K/ L 3.5-10.5 RED BLOOD CELL COUNT (BEAKER) (test btot=278) 3.18 M/ L 3.93-5.22 HEMOGLOBIN (BEAKER) (test jkke=431) 9.7 GM/DL 11.2-15.7 HEMATOCRIT (BEAKER) (test jguz=667) 31.0 % 34.1-44.9 MEAN CORPUSCULAR VOLUME (BEAKER) (test jjis=131) 97.5 fL 79.4-94.8 MEAN CORPUSCULAR HEMOGLOBIN (BEAKER) (test 30.5 pg 25.6-32.2 hcop=294) MEAN CORPUSCULAR HEMOGLOBIN CONC (BEAKER) (test 31.3 GM/DL 32.2-35.5 cdls=069) RED CELL DISTRIBUTION WIDTH (BEAKER) (test 13.3 % 11.7-14.4 ajrj=305) PLATELET COUNT (BEAKER) (test lefw=203) 167 K/CU MM 150-450 MEAN PLATELET VOLUME (BEAKER) (test yqjs=371) 11.0 fL 9.4-12.3 NUCLEATED RED BLOOD CELLS (BEAKER) (test 0 /100 WBC 0-0 ohhv=953) NEUTROPHILS RELATIVE PERCENT (BEAKER) (test 85 % lnjj=030) LYMPHOCYTES RELATIVE PERCENT (BEAKER) (test 7 % bggz=908) MONOCYTES RELATIVE PERCENT (BEAKER) (test 7 % kvsn=560) EOSINOPHILS RELATIVE PERCENT (BEAKER) (test 0 % gzag=582) BASOPHILS RELATIVE PERCENT (BEAKER) (test 0 % pqvw=112) NEUTROPHILS ABSOLUTE COUNT (BEAKER) (test 11.61 K/ L 1.56-6.13 umkr=710) LYMPHOCYTES ABSOLUTE COUNT (BEAKER) (test 0.98 K/ L 1.18-3.74 sbve=126) MONOCYTES ABSOLUTE COUNT (BEAKER) (test 0.92 K/ L 0.24-0.36 hodm=048) EOSINOPHILS ABSOLUTE COUNT (BEAKER) (test 0.00 K/ L 0.04-0.36 gvkw=863) BASOPHILS ABSOLUTE COUNT (BEAKER) (test 0.02 K/ L 0.01-0.08 fsap=041) IMMATURE GRANULOCYTES-RELATIVE PERCENT (BEAKER) 1 % 0-1 (test qmow=4086) [id number] 02:01:00 Test Item Value Reference Range Comments PARTIAL THROMBOPLASTIN TIME (BEAKER) (test 32.5 seconds 22.5-36.0 rbue=267) BLOOD GAS, [id number] 01:09:00 Test Item Value Reference Range Comments PH ARTERIAL (BEAKER) (test cxoh=964) 7.35 7.35-7.45 PCO2 ARTERIAL (BEAKER) (test knuw=532) 50 mmHg 35-45 PO2 ARTERIAL (BEAKER) (test ajod=356) 86 mmHg 80-90 O2 SATURATION ARTERIAL (BEAKER) (test zcqz=917) 95.3 % 96.0-97.0 HCO3 ARTERIAL (BEAKER) (test yaeg=082) 27 mmol/L 21-29 BASE EXCESS ARTERIAL (BEAKER) (test sqbm=531) 1.0 mmol/L -2.0-3.0 PATIENT TEMPERATURE (BEAKER) (test schw=7575) 38.2 C FIO2 (BEAKER) (test fmip=9854) 40.0 % POCT-GLUCOSE [id number] 01:04:00 Test Item Value Reference Range Comments POC-GLUCOSE METER (BEAKER) 199 mg/dL 70-110 TESTED AT [facility] [address] [facility] (test qlrw=4732) [facility] [address] [id number] 00:14:00 Test Item Value Reference Range Comments MAGNESIUM (BEAKER) (test 2.3 mg/dL 1.6-2.6 Specimen slightly hemolyzed blxm=092) [id number] 00:14:00 Test Item Value Reference Range Comments POTASSIUM (BEAKER) (test 3.8 meq/L 3.5-5.1 Specimen slightly hemolyzed xjti=876) CALCIUM, [id number] 00:11:00 Test Item Value Reference Range Comments CALCIUM IONIZED (BEAKER) (test uctc=473) 1.06 mmol/L 1.12-1.27 PH, BLOOD (BEAKER) (test etsr=3879) 7.35 BLOOD GAS, [id number] 00:11:00 Test Item Value Reference Range Comments PH ARTERIAL (BEAKER) (test yhru=589) 7.33 7.35-7.45 PCO2 ARTERIAL (BEAKER) (test rjqb=388) 53 mmHg 35-45 PO2 ARTERIAL (BEAKER) (test rnsr=849) 58 mmHg 80-90 O2 SATURATION ARTERIAL (BEAKER) (test onks=818) 86.1 % 96.0-97.0 HCO3 ARTERIAL (BEAKER) (test wxze=062) 27 mmol/L 21-29 BASE EXCESS ARTERIAL (BEAKER) (test wiue=550) 0.9 mmol/L -2.0-3.0 PATIENT TEMPERATURE (BEAKER) (test hhas=9969) 38.0 C FIO2 (BEAKER) (test tzih=9295) 40.0 % Post extubation ABGPOCT-GLUCOSE [id number] 23:58:00 Test Item Value Reference Range Comments POC-GLUCOSE METER (BEAKER) 202 mg/dL 70-110 TESTED AT [address] (test mkhw=2375) [place] [id number] POCT-GLUCOSE [id number] 23:58:00 Test Item Value Reference Range Comments POC-GLUCOSE METER (BEAKER) 86 mg/dL 70-110 TESTED AT [address] (test zrim=5044) [place] [id number] BASIC METABOLIC [id number] 22:18:00 Test Item Value Reference Range Comments SODIUM (BEAKER) (test 141 meq/L 136-145 sgdz=538) POTASSIUM (BEAKER) (test 3.6 meq/L 3.5-5.1 Specimen slightly nxui=677) hemolyzed CHLORIDE (BEAKER) (test 105 meq/L 98-107 grro=022) CO2 (BEAKER) (test 26 meq/L 22-29 pfgb=916) BLOOD UREA NITROGEN 31 mg/dL 7-21 (BEAKER) (test ktzp=595) CREATININE (BEAKER) (test 2.09 mg/dL 0.57-1.25 Specimen slightly xjuo=345) hemolyzed GLUCOSE RANDOM (BEAKER) 81 mg/dL 70-105 (test lgtm=236) CALCIUM (BEAKER) (test 8.3 mg/dL 8.4-10.2 kkxu=128) EGFR (BEAKER) (test 28 mL/min/1.73 sq m ESTIMATED GFR IS NOT qedi=7097) ACCURATE CREATININE CLEARANCE IN PREDICTING GLOMERULAR FILTRATION RATE. ESTIMATED GFR IS NOT APPLICABLE FOR DIALYSIS PATIENTS. [id number] 22:17:00 Test Item Value Reference Range Comments PHOSPHORUS (BEAKER) (test 5.1 mg/dL 2.3-4.7 Specimen slightly hemolyzed lfnw=416) POCT-GLUCOSE [id number] 20:57:00 Test Item Value Reference Range Comments POC-GLUCOSE METER (BEAKER) 90 mg/dL 70-110 TESTED AT [facility] [address] [facility] (test kwtq=5716) [facility] [address] BLOOD GAS, [id number] 20:52:00 Test Item Value Reference Range Comments PH ARTERIAL (BEAKER) (test qxjz=254) 7.35 7.35-7.45 PCO2 ARTERIAL (BEAKER) (test fhab=002) 49 mmHg 35-45 PO2 ARTERIAL (BEAKER) (test riwf=013) 100 mmHg 80-90 O2 SATURATION ARTERIAL (BEAKER) (test ksdd=224) 97.0 % 96.0-97.0 HCO3 ARTERIAL (BEAKER) (test rdmg=709) 26 mmol/L 21-29 BASE EXCESS ARTERIAL (BEAKER) (test hpyd=798) 0.3 mmol/L -2.0-3.0 PATIENT TEMPERATURE (BEAKER) (test lpxg=3353) 37.7 C FIO2 (BEAKER) (test gvjk=2252) 40.0 % [id number] 18:57:00 Test Item Value Reference Range Comments PARTIAL THROMBOPLASTIN TIME (BEAKER) (test 70.7 seconds 22.5-36.0 dief=369) BLOOD GAS, [id number] 16:52:00 Test Item Value Reference Range Comments PH ARTERIAL (BEAKER) (test xisu=005) 7.37 7.35-7.45 PCO2 ARTERIAL (BEAKER) (test bxwy=953) 47 mmHg 35-45 PO2 ARTERIAL (BEAKER) (test wqxe=473) 117 mmHg 80-90 O2 SATURATION ARTERIAL (BEAKER) (test xklc=044) 98.0 % 96.0-97.0 HCO3 ARTERIAL (BEAKER) (test dgax=024) 26 mmol/L 21-29 BASE EXCESS ARTERIAL (BEAKER) (test ebbh=160) 0.5 mmol/L -2.0-3.0 PATIENT TEMPERATURE (BEAKER) (test sjfy=5838) 37.7 C FIO2 (BEAKER) (test hybx=0636) 60.0 % GLUCOSE-STAT [id number] 16:52:00 Test Item Value Reference Range Comments GLUCOSE RANDOM (BEAKER) (test evpv=230) 149 mg/dL 70-110 [id number] 16:22:00 Test Item Value Reference Range Comments PARTIAL THROMBOPLASTIN TIME (BEAKER) (test 197.7 seconds 22.5-36.0 wmro=224) PROTHROMBIN [id number] 16:15:00 Test Item Value Reference Range Comments PROTIME (BEAKER) (test ujwt=105) 16.4 seconds 11.7-14.7 INR (BEAKER) (test lsww=195) 1.3 <=5.9 RECOMMENDED COUMADIN/WARFARIN INR THERAPY RANGESSTANDARD DOSE: 2.0 - 3.0 Includes: PROPHYLAXIS forvenous thrombosis, systemic embolization; TREATMENT for venous thrombosis and/or pulmonary embolus.HIGH RISK: Target INR is 2.5-3.5 for patients with mechanical heart valves.[id number] 16:15:00 Test Item Value Reference Range Comments FIBRINOGEN LEVEL (BEAKER) (test dopl=621) 303 mg/dl 225-434 [id number] 16:15:00 Test Item Value Reference Range Comments MAGNESIUM (BEAKER) (test 3.0 mg/dL 1.6-2.6 Specimen moderately hemolyzed hala=826) [id number] 16:15:00 Test Item Value Reference Range Comments PHOSPHORUS (BEAKER) (test 6.6 mg/dL 2.3-4.7 Specimen moderately hemolyzed orbl=321) BASIC METABOLIC [id number] 16:15:00 Test Item Value Reference Range Comments SODIUM (BEAKER) (test 144 meq/L 136-145 goid=133) POTASSIUM (BEAKER) (test 4.1 meq/L 3.5-5.1 Specimen moderately vjyt=240) hemolyzed CHLORIDE (BEAKER) (test 106 meq/L 98-107 qolk=193) CO2 (BEAKER) (test 27 meq/L 22-29 ivso=756) BLOOD UREA NITROGEN 30 mg/dL 7-21 (BEAKER) (test gxwc=866) CREATININE (BEAKER) (test 1.99 mg/dL 0.57-1.25 Specimen moderately ompt=594) hemolyzed GLUCOSE RANDOM (BEAKER) 165 mg/dL 70-105 (test yucd=389) CALCIUM (BEAKER) (test 8.6 mg/dL 8.4-10.2 pqtx=123) EGFR (BEAKER) (test 30 mL/min/1.73 sq m ESTIMATED GFR IS NOT wzgo=9415) ACCURATE CREATININE CLEARANCE IN PREDICTING GLOMERULAR FILTRATION RATE. ESTIMATED GFR IS NOT APPLICABLE FOR DIALYSIS PATIENTS. CBC (HEMOGRAM ONLY)2017-07-19 16:13:00 Test Item Value Reference Range Comments WHITE BLOOD CELL COUNT (BEAKER) (test hgjq=612) 14.5 K/ L 3.5-10.5 RED BLOOD CELL COUNT (BEAKER) (test opov=729) 3.55 M/ L 3.93-5.22 HEMOGLOBIN (BEAKER) (test oplk=927) 10.7 GM/DL 11.2-15.7 HEMATOCRIT (BEAKER) (test hlhu=910) 34.9 % 34.1-44.9 MEAN CORPUSCULAR VOLUME (BEAKER) (test jnyi=458) 98.3 fL 79.4-94.8 MEAN CORPUSCULAR HEMOGLOBIN (BEAKER) (test 30.1 pg 25.6-32.2 jffg=447) MEAN CORPUSCULAR HEMOGLOBIN CONC (BEAKER) (test 30.7 GM/DL 32.2-35.5 xzou=440) RED CELL DISTRIBUTION WIDTH (BEAKER) (test 13.3 % 11.7-14.4 izia=708) PLATELET COUNT (BEAKER) (test npap=518) 235 K/CU MM 150-450 MEAN PLATELET VOLUME (BEAKER) (test kxbe=196) 11.0 fL 9.4-12.3 NUCLEATED RED BLOOD CELLS (BEAKER) (test 0 /100 WBC 0-0 itzo=650) LACTIC ACID, ARTERIAL, WHOLE [id number] 16:12:00 Test Item Value Reference Range Comments LACTATE BLOOD ARTERIAL (2) 2.0 mmol/L 0.5-2.2 Specimen slightly hemolyzed (BEAKER) (test cdvd=4963) Effective 08/06/2015: Units/Reference Range ChangeNew: 0.5-2.2 mmol/L Previous: 5 -20 mg/dLCALCIUM, [id number] 15:54:00 Test Item Value Reference Range Comments CALCIUM IONIZED (BEAKER) (test rswf=437) 1.14 mmol/L 1.12-1.27 PH, BLOOD (BEAKER) (test jnky=5319) 7.24 SODIUM NA-STAT [id number] 15:54:00 Test Item Value Reference Range Comments SODIUM (BEAKER) (test dbwk=050) 143 meq/L 135-148 POTASSIUM-STAT [id number] 15:54:00 Test Item Value Reference Range Comments POTASSIUM (BEAKER) (test vdjs=502) 3.9 meq/L 3.6-5.5 BLOOD GAS, [id number] 15:54:00 Test Item Value Reference Range Comments PH ARTERIAL (BEAKER) (test olgh=670) 7.26 7.35-7.45 PCO2 ARTERIAL (BEAKER) (test nnhq=891) 69 mmHg 35-45 PO2 ARTERIAL (BEAKER) (test uenh=405) 74 mmHg 80-90 O2 SATURATION ARTERIAL (BEAKER) (test olqj=730) 93.4 % 96.0-97.0 HCO3 ARTERIAL (BEAKER) (test qfxv=162) 31 mmol/L 21-29 BASE EXCESS ARTERIAL (BEAKER) (test umqz=150) 2.0 mmol/L -2.0-3.0 PATIENT TEMPERATURE (BEAKER) (test cdfr=1875) 35.6 C FIO2 (BEAKER) (test elqs=3695) 50.0 % GLUCOSE-STAT [id number] 15:54:00 Test Item Value Reference Range Comments GLUCOSE RANDOM (BEAKER) (test agny=972) 169 mg/dL 70-110 HGB/HCT (H&H) - STAT [id number] 15:54:00 Test Item Value Reference Range Comments HEMOGLOBIN (STEVAN) (test zmuu=468) 11.7 g/dL 12.0-15.0 HEMATOCRIT (STEVAN) (test mglv=939) 34.0 % 36.0-45.0 RAD, CHEST, 1 VIEW, NON [id number] 15:49:00Reason for exam:->sp PCI/ intubatedFINAL REPORT TECHNIQUE: [...] Location: [facility] RadiologyReading Room [id number] 14:13:00 Test Item Value Reference Range Comments ACTIVATED CLOTTING TIME 131 sec TESTED AT [facility] [address] ([place]) (test addf=970) [facility] [address] TROPONIN [id number] 12:32:00 Test Item Value Reference Range Comments TROPONIN I (STEVAN) (test aest=125) 119.79 ng/mL 0.00-0.03 Troponin I (TnI) levels [...] and persistent tachyarrhythmia.CREATINE KINASE (CK), TOTAL AND [id number] 12:26:00 Test Item Value Reference Range Comments CREATINE KINASE TOTAL (DAMASOAKER) (test zucq=018) 2405 U/L 29-200 CREATINE KINASE-MB (BEAKER) (test ygty=334) 65.6 ng/mL 0.0-6.6 CREATINE KINASE-MB INDEX (BEAKER) (test uulx=193) 2.7 % CK-MB Reference Range:<6.7 Normal6.7-10.0 Borderline>10.0 AbnormalPOCT-GLUCOSE [id number] 12:20:00 Test Item Value Reference Range Comments POC-GLUCOSE METER (BEAKER) 183 mg/dL 70-110 TESTED AT [address] (test xfto=8263) [facility] [address] [id number] 12:03:00 Test Item Value Reference Range Comments MAGNESIUM (BEAKER) (test mokm=835) 2.8 mg/dL 1.6-2.6 [id number] 12:03:00 Test Item Value Reference Range Comments PHOSPHORUS (BEAKER) (test vhpx=082) 5.3 mg/dL 2.3-4.7 BASIC METABOLIC [id number] 12:03:00 Test Item Value Reference Range Comments SODIUM (BEAKER) (test 143 meq/L 136-145 huog=566) POTASSIUM (BEAKER) (test 3.8 meq/L 3.5-5.1 czac=082) CHLORIDE (BEAKER) (test 106 meq/L 98-107 uarp=279) CO2 (BEAKER) (test 27 meq/L 22-29 wsro=382) BLOOD UREA NITROGEN 29 mg/dL 7-21 (BEAKER) (test edaz=037) CREATININE (BEAKER) (test 1.92 mg/dL 0.57-1.25 fpdd=937) GLUCOSE RANDOM (BEAKER) 188 mg/dL 70-105 (test fawy=395) CALCIUM (BEAKER) (test 8.7 mg/dL 8.4-10.2 govv=297) EGFR (BEAKER) (test 31 mL/min/1.73 sq m ESTIMATED GFR IS NOT qrxf=1147) ACCURATE CREATININE CLEARANCE IN PREDICTING GLOMERULAR FILTRATION RATE. ESTIMATED GFR IS NOT APPLICABLE FOR DIALYSIS PATIENTS. POCT-GLUCOSE [id number] 11:19:00 Test Item Value Reference Range Comments POC-GLUCOSE METER (BEAKER) 190 mg/dL 70-110 TESTED AT [address] (test haur=5881) [facility] [address] POCT-GLUCOSE [id number] 10:12:00 Test Item Value Reference Range Comments POC-GLUCOSE METER (BEAKER) 197 mg/dL 70-110 TESTED AT [address] (test qyhv=5292) [facility] [address] POCT-GLUCOSE [id number] 09:21:00 Test Item Value Reference Range Comments POC-GLUCOSE METER (BEAKER) 221 mg/dL 70-110 TESTED AT [address] (test jqbf=9350) [place] [id number] LACTIC ACID, ARTERIAL, WHOLE [id number] 09:19:00 Test Item Value Reference Range Comments LACTATE BLOOD ARTERIAL (2) (BEAKER) (test 2.4 mmol/L 0.5-2.2 agtr=9485) Effective 08/06/2015: Units/Reference Range ChangeNew: 0.5-2.2 mmol/L Previous: 5 -20 mg/dLPROTHROMBIN TIME/[id number] 08:44:00 Test Item Value Reference Range Comments PROTIME (BEAKER) (test ewdu=247) 14.4 seconds 11.7-14.7 INR (BEAKER) (test ipok=001) 1.1 <=5.9 RECOMMENDED COUMADIN/WARFARIN INR THERAPY RANGESSTANDARD DOSE: 2.0 - 3.0 Includes: PROPHYLAXIS forvenous thrombosis, systemic embolization; TREATMENT for venous thrombosis and/or pulmonary embolus.HIGH RISK: Target INR is 2.5-3.5 for patients with mechanical heart valves.[id number] 08:44:00 Test Item Value Reference Range Comments FIBRINOGEN LEVEL (BEAKER) (test bvbp=632) 367 mg/dl 225-434 [id number] 08:44:00 Test Item Value Reference Range Comments PARTIAL THROMBOPLASTIN TIME (BEAKER) (test 30.0 seconds 22.5-36.0 vkbh=871) POCT-GLUCOSE [id number] 07:52:00 Test Item Value Reference Range Comments POC-GLUCOSE METER (BEAKER) 215 mg/dL 70-110 TESTED AT [address] (test khga=0666) [facility] [address] CT, CHEST, WITHOUT [id number] 07:50:00KEEP PATIENT ON CT TABLE. CALL RADIOLOGIST [...] Verified Date /Time: 07/19/2017 07:50:43 Reading Location: [facility] Diagnostic Imaging Reading Room - [place] [address] Electronically signed by: LYNNETTE CASTRO MD on 07:50 AMPOCT-GLUCOSE [id number] 07:37:00 Test Item Value Reference Range Comments POC-GLUCOSE METER (BEAKER) 225 mg/dL 70-110 TESTED AT [facility] [address] (test dkah=0493) [facility] [address] RAD, CHEST, 1 VIEW, NON [id number] 04:04:00Reason for exam:->v tach/ iabpShould this be [...] MDReport Verified Date/Time: 07/19/2017 04:04:19 Reading Location: [address] Ortho Consult Reading Room [id number] 03:59:00 Test Item Value Reference Range Comments PHOSPHORUS (BEAKER) (test ogsb=930) 4.4 mg/dL 2.3-4.7 [id number] 03:59:00 Test Item Value Reference Range Comments MAGNESIUM (BEAKER) (test eqtr=952) 2.5 mg/dL 1.6-2.6 BASIC METABOLIC [id number] 03:59:00 Test Item Value Reference Range Comments SODIUM (BEAKER) (test 145 meq/L 136-145 jawf=347) POTASSIUM (BEAKER) (test 3.6 meq/L 3.5-5.1 wpzv=988) CHLORIDE (BEAKER) (test 106 meq/L 98-107 gjnv=868) CO2 (BEAKER) (test 25 meq/L 22-29 zkdv=082) BLOOD UREA NITROGEN 28 mg/dL 7-21 (BEAKER) (test uvxg=323) CREATININE (BEAKER) (test 1.93 mg/dL 0.57-1.25 lhnt=283) GLUCOSE RANDOM (BEAKER) 216 mg/dL 70-105 (test jktl=692) CALCIUM (BEAKER) (test 9.0 mg/dL 8.4-10.2 ayaz=319) EGFR (BEAKER) (test 31 mL/min/1.73 sq m ESTIMATED GFR IS NOT fsgl=9631) ACCURATE CREATININE CLEARANCE IN PREDICTING GLOMERULAR FILTRATION RATE. ESTIMATED GFR IS NOT APPLICABLE FOR DIALYSIS PATIENTS. B-TYPE NATRIURETIC FACTOR (BNP)2017-07-19 03:10:00 Test Item Value Reference Range Comments B-TYPE NATRIURETIC PEPTIDE (BEAKER) (test 2662 pg/mL 0-100 sizv=358) HEPATIC FUNCTION [id number] 03:04:00 Test Item Value Reference Range Comments TOTAL PROTEIN (BEAKER) (test yxia=171) 6.6 gm/dL 6.0-8.3 ALBUMIN (BEAKER) (test flfk=3904) 3.5 g/dL 3.5-5.0 BILIRUBIN TOTAL (BEAKER) (test zrew=581) 0.4 mg/dL 0.2-1.2 BILIRUBIN DIRECT (BEAKER) (test mwrl=416) 0.2 mg/dL 0.1-0.5 ALKALINE PHOSPHATASE (BEAKER) (test ssob=385) 57 U/L 40-150 AST (SGOT) (BEAKER) (test xdqt=462) 359 U/L 5-34 ALT (SGPT) (BEAKER) (test axly=450) 99 U/L 6-55 CREATINE KINASE (CK)2017-07-19 03:04:00 Test Item Value Reference Range Comments CREATINE KINASE TOTAL (BEAKER) (test fuox=875) 2888 U/L 29-200 CBC W/PLT COUNT & AUTO [id number] 02:56:00 Test Item Value Reference Range Comments WHITE BLOOD CELL COUNT (BEAKER) (test lcww=601) 19.0 K/ L 3.5-10.5 RED BLOOD CELL COUNT (BEAKER) (test jyga=769) 3.69 M/ L 3.93-5.22 HEMOGLOBIN (BEAKER) (test kkji=672) 11.2 GM/DL 11.2-15.7 HEMATOCRIT (BEAKER) (test hfcw=553) 35.3 % 34.1-44.9 MEAN CORPUSCULAR VOLUME (BEAKER) (test emuj=570) 95.7 fL 79.4-94.8 MEAN CORPUSCULAR HEMOGLOBIN (BEAKER) (test 30.4 pg 25.6-32.2 wzwl=837) MEAN CORPUSCULAR HEMOGLOBIN CONC (BEAKER) (test 31.7 GM/DL 32.2-35.5 yqzm=997) RED CELL DISTRIBUTION WIDTH (BEAKER) (test 13.1 % 11.7-14.4 mckf=072) PLATELET COUNT (BEAKER) (test zhab=170) 253 K/CU MM 150-450 MEAN PLATELET VOLUME (BEAKER) (test yidh=350) 10.0 fL 9.4-12.3 NUCLEATED RED BLOOD CELLS (BEAKER) (test 0 /100 WBC 0-0 yiyw=173) NEUTROPHILS RELATIVE PERCENT (BEAKER) (test 86 % fvba=858) LYMPHOCYTES RELATIVE PERCENT (BEAKER) (test 6 % kvhv=105) MONOCYTES RELATIVE PERCENT (BEAKER) (test 7 % xjoz=687) EOSINOPHILS RELATIVE PERCENT (BEAKER) (test 0 % rggx=166) BASOPHILS RELATIVE PERCENT (BEAKER) (test 0 % lhyr=294) NEUTROPHILS ABSOLUTE COUNT (BEAKER) (test 16.34 K/ L 1.56-6.13 sdng=953) LYMPHOCYTES ABSOLUTE COUNT (BEAKER) (test 1.15 K/ L 1.18-3.74 nwnu=700) MONOCYTES ABSOLUTE COUNT (BEAKER) (test 1.39 K/ L 0.24-0.36 nuqi=915) EOSINOPHILS ABSOLUTE COUNT (BEAKER) (test 0.00 K/ L 0.04-0.36 revc=443) BASOPHILS ABSOLUTE COUNT (BEAKER) (test 0.02 K/ L 0.01-0.08 wwca=830) IMMATURE GRANULOCYTES-RELATIVE PERCENT (BEAKER) 0 % 0-1 (test jwfu=5515) CALCIUM, [id number] 02:49:00 Test Item Value Reference Range Comments CALCIUM IONIZED (BEAKER) (test qqxj=440) 1.14 mmol/L 1.12-1.27 PH, BLOOD (BEAKER) (test slir=4804) 7.36 CBC (HEMOGRAM ONLY)2017-07-19 02:48:00 Test Item Value Reference Range Comments WHITE BLOOD CELL COUNT (BEAKER) (test afns=818) 19.0 K/ L 3.5-10.5 RED BLOOD CELL COUNT (BEAKER) (test fxes=050) 3.69 M/ L 3.93-5.22 HEMOGLOBIN (BEAKER) (test lrtd=951) 11.2 GM/DL 11.2-15.7 HEMATOCRIT (BEAKER) (test nult=238) 35.3 % 34.1-44.9 MEAN CORPUSCULAR VOLUME (BEAKER) (test nzmy=194) 95.7 fL 79.4-94.8 MEAN CORPUSCULAR HEMOGLOBIN (BEAKER) (test 30.4 pg 25.6-32.2 wvos=201) MEAN CORPUSCULAR HEMOGLOBIN CONC (BEAKER) (test 31.7 GM/DL 32.2-35.5 mcaj=819) RED CELL DISTRIBUTION WIDTH (BEAKER) (test 13.1 % 11.7-14.4 vnkl=716) PLATELET COUNT (BEAKER) (test cqko=091) 253 K/CU MM 150-450 MEAN PLATELET VOLUME (BEAKER) (test uhin=770) 10.0 fL 9.4-12.3 NUCLEATED RED BLOOD CELLS (BEAKER) (test 0 /100 WBC 0-0 pugj=096) BLOOD GAS, [id number] 02:48:00 Test Item Value Reference Range Comments PH ARTERIAL (BEAKER) (test zsnn=293) 7.35 7.35-7.45 PCO2 ARTERIAL (BEAKER) (test sxle=711) 55 mmHg 35-45 PO2 ARTERIAL (BEAKER) (test lavw=100) 73 mmHg 80-90 O2 SATURATION ARTERIAL (BEAKER) (test gpbj=781) 93.3 % 96.0-97.0 HCO3 ARTERIAL (BEAKER) (test eaka=086) 30 mmol/L 21-29 BASE EXCESS ARTERIAL (BEAKER) (test yjuh=772) 3.1 mmol/L -2.0-3.0 PATIENT TEMPERATURE (BEAKER) (test lfoz=5244) 37.5 C FIO2 (BEAKER) (test rizz=7530) 40.0 % POCT-GLUCOSE [id number] 02:21:00 Test Item Value Reference Range Comments POC-GLUCOSE METER (BEAKER) 184 mg/dL 70-110 TESTED AT [facility] [address] [facility] (test tjxz=2370) [facility] [address] POCT-GLUCOSE [id number] 01:15:00 Test Item Value Reference Range Comments POC-GLUCOSE METER (BEAKER) 173 mg/dL 70-110 TESTED AT [facility] [address] [facility] (test yvir=5345) [facility] [address] [id number] 00:55:00 Test Item Value Reference Range Comments PHOSPHORUS (BEAKER) (test nfss=864) 3.3 mg/dL 2.3-4.7 [id number] 00:55:00 Test Item Value Reference Range Comments MAGNESIUM (BEAKER) (test gjxh=410) 1.8 mg/dL 1.6-2.6 BASIC METABOLIC [id number] 00:55:00 Test Item Value Reference Range Comments SODIUM (BEAKER) (test 143 meq/L 136-145 eavl=849) POTASSIUM (BEAKER) (test 3.9 meq/L 3.5-5.1 wlzb=653) CHLORIDE (BEAKER) (test 106 meq/L 98-107 olzp=709) CO2 (BEAKER) (test 27 meq/L 22-29 iekr=298) BLOOD UREA NITROGEN 27 mg/dL 7-21 (BEAKER) (test qybr=872) CREATININE (BEAKER) (test 1.90 mg/dL 0.57-1.25 dopf=791) GLUCOSE RANDOM (BEAKER) 181 mg/dL 70-105 (test dlkh=415) CALCIUM (BEAKER) (test 8.9 mg/dL 8.4-10.2 aryh=796) EGFR (BEAKER) (test 32 mL/min/1.73 sq m ESTIMATED GFR IS NOT rpsa=2901) ACCURATE CREATININE CLEARANCE IN PREDICTING GLOMERULAR FILTRATION RATE. ESTIMATED GFR IS NOT APPLICABLE FOR DIALYSIS PATIENTS. POCT-GLUCOSE [id number] 00:11:00 Test Item Value Reference Range Comments POC-GLUCOSE METER (BEAKER) 177 mg/dL 70-110 TESTED AT [facility] [address] [facility] (test ycjz=9254) [facility] [address] POCT-GLUCOSE [id number] 23:25:00 Test Item Value Reference Range Comments POC-GLUCOSE METER (BEAKER) 206 mg/dL 70-110 TESTED AT [place] [id number] [facility] (test vzuj=8027) [facility] [address] POCT-GLUCOSE [id number] 22:19:00 Test Item Value Reference Range Comments POC-GLUCOSE METER (BEAKER) 243 mg/dL 70-110 TESTED AT [address] (test ekei=0688) [facility] [address] POCT-GLUCOSE [id number] 21:37:00 Test Item Value Reference Range Comments POC-GLUCOSE METER (BEAKER) 235 mg/dL 70-110 TESTED AT [address] (test dpui=9207) [facility] [address] POCT-GLUCOSE [id number] 20:04:00 Test Item Value Reference Range Comments POC-GLUCOSE METER (BEAKER) 216 mg/dL 70-110 TESTED AT [address] (test vklm=0967) [facility] [address] POCT-GLUCOSE [id number] 18:40:00 Test Item Value Reference Range Comments POC-GLUCOSE METER (BEAKER) 271 mg/dL 70-110 TESTED AT [address] (test zuuf=7006) [facility] [address] [id number] 18:32:00 Test Item Value Reference Range Comments MAGNESIUM (BEAKER) (test 1.9 mg/dL 1.6-2.6 Specimen slightly hemolyzed reii=278) [id number] 18:32:00 Test Item Value Reference Range Comments PHOSPHORUS (BEAKER) (test 3.1 mg/dL 2.3-4.7 Specimen slightly hemolyzed gtvi=311) BASIC METABOLIC [id number] 18:32:00 Test Item Value Reference Range Comments SODIUM (BEAKER) (test 142 meq/L 136-145 vmza=840) POTASSIUM (BEAKER) (test 3.9 meq/L 3.5-5.1 Specimen slightly zgij=698) hemolyzed CHLORIDE (BEAKER) (test 107 meq/L 98-107 ljih=999) CO2 (BEAKER) (test 24 meq/L 22-29 gdis=934) BLOOD UREA NITROGEN 22 mg/dL 7-21 (BEAKER) (test mcec=293) CREATININE (BEAKER) (test 1.55 mg/dL 0.57-1.25 Specimen slightly kndm=304) hemolyzed GLUCOSE RANDOM (BEAKER) 242 mg/dL 70-105 (test ibpj=599) CALCIUM (BEAKER) (test 8.8 mg/dL 8.4-10.2 khrb=691) EGFR (BEAKER) (test 40 mL/min/1.73 sq m ESTIMATED GFR IS NOT tikq=0705) ACCURATE CREATININE CLEARANCE IN PREDICTING GLOMERULAR FILTRATION RATE. ESTIMATED GFR IS NOT APPLICABLE FOR DIALYSIS PATIENTS. BLOOD GAS, [id number] 18:24:00 Test Item Value Reference Range Comments PH ARTERIAL (BEAKER) (test nhui=653) 7.34 7.35-7.45 PCO2 ARTERIAL (BEAKER) (test lvti=211) 51 mmHg 35-45 PO2 ARTERIAL (BEAKER) (test jdcf=571) 57 mmHg 80-90 O2 SATURATION ARTERIAL (BEAKER) (test uvni=083) 87.5 % 96.0-97.0 HCO3 ARTERIAL (BEAKER) (test hggq=497) 27 mmol/L 21-29 BASE EXCESS ARTERIAL (BEAKER) (test tgrn=225) 1.0 mmol/L -2.0-3.0 PATIENT TEMPERATURE (BEAKER) (test xufw=8122) 37.2 C FIO2 (BEAKER) (test dfgg=9755) 40.0 % POCT-GLUCOSE [id number] 17:14:00 Test Item Value Reference Range Comments POC-GLUCOSE METER (BEAKER) 299 mg/dL 70-110 TESTED AT [place] [address] [address] (test xkyc=0481) [facility] [address] LACTIC ACID, ARTERIAL, WHOLE [id number] 16:37:00 Test Item Value Reference Range Comments LACTATE BLOOD ARTERIAL (2) 2.9 mmol/L 0.5-2.2 Specimen slightly hemolyzed (BEAKER) (test epye=3422) Effective 08/06/2015: Units/Reference Range ChangeNew: 0.5-2.2 mmol/L Previous: 5 -20 mg/[id number] 15:45:00 Test Item Value Reference Range Comments GLUCOSE RANDOM (BEAKER) (test sqkh=744) 439 mg/dL 70-105 If last glucose was less than 500, may do bedside glucose instead of serum glucose.POCT-GLUCOSE [id number] 15:21:00 Test Item Value Reference Range Comments POC-GLUCOSE METER (BEAKER) 374 mg/dL 70-110 Notified PAULA BERGER/TESTED AT [facility] (test fmwl=1772) [address] [facility] [address] [id number] 15:14:00 Test Item Value Reference Range Comments POTASSIUM (BEAKER) (test xsus=674) 4.0 meq/L 3.5-5.1 If last glucose was less than 500, may do bedside glucose instead of serum glucose.URINALYSIS W/ [id number] 15:03:00 Test Item Value Reference Range Comments COLOR (BEAKER) (test upgx=047) Yellow CLARITY (BEAKER) (test jvey=351) Clear SPECIFIC GRAVITY UA (BEAKER) (test mlkx=045) 1.050 1.001-1.035 PH UA (BEAKER) (test jwpw=936) 5.5 5.0-8.0 PROTEIN UA (BEAKER) (test hevr=661) 50 mg/dL Negative GLUCOSE UA (BEAKER) (test xufh=352) >1000 mg/dL Negative KETONES UA (BEAKER) (test goov=572) Negative Negative BILIRUBIN UA (BEAKER) (test pbbu=601) Negative Negative BLOOD UA (BEAKER) (test mldn=756) Moderate Negative NITRITE UA (BEAKER) (test lymg=258) Negative Negative LEUKOCYTE ESTERASE UA (BEAKER) (test guxr=340) Negative Negative UROBILINOGEN UA (BEAKER) (test ydqw=673) 0.2 mg/dL 0.2-1.0 RBC UA (BEAKER) (test vkcp=931) 16 /HPF WBC UA (BEAKER) (test viuh=405) 11 /HPF BACTERIA (BEAKER) (test idld=697) Rare MUCUS (BEAKER) (test lxxr=0820) Rare SQUAMOUS EPITHELIAL (BEAKER) (test kgsy=094) 1 /HPF SOURCE(BEAKER) (test rbfk=3613) U/S, RENAL, [id number] 14:36:00Reason for exam:->acute renal failure , hydronephrosisShould [...] MDReport Verified Date/Time: 07/18/2017 14:36:40 Reading Location: [place] [id number] Ultrasound Reading Room Electronically signed by: VIRGINIA DIAZ M.D. on 02:36 PMT4, [id number] 14:31:00 Test Item Value Reference Range Comments FREE T4 (BEAKER) (test hbuu=652) 1.13 ng/dL 0.70-1.48 BLOOD GAS, [id number] 14:01:00 Test Item Value Reference Range Comments PH ARTERIAL (BEAKER) (test mson=363) 7.42 7.35-7.45 PCO2 ARTERIAL (BEAKER) (test bwic=175) 42 mmHg 35-45 PO2 ARTERIAL (BEAKER) (test ylwk=840) 66 mmHg 80-90 O2 SATURATION ARTERIAL (BEAKER) (test enyj=186) 93.5 % 96.0-97.0 HCO3 ARTERIAL (BEAKER) (test nljv=537) 27 mmol/L 21-29 BASE EXCESS ARTERIAL (BEAKER) (test woci=320) 2.1 mmol/L -2.0-3.0 PATIENT TEMPERATURE (BEAKER) (test vwsr=9322) 36.9 C FIO2 (BEAKER) (test vxhc=5400) 40.0 % HEMOGLOBIN [id number] 13:57:00 Test Item Value Reference Range Comments HEMOGLOBIN A1C (BEAKER) (test mxqu=500) 9.8 % 4.3-6.1 SODIUM, RANDOM [id number] 13:49:00 Test Item Value Reference Range Comments SODIUM URINE (BEAKER) (test ajbb=589) 22 meq/L Reference Range: No NormalsTSH/FREE T4 IF [id number] 13:49:00 Test Item Value Reference Range Comments THYROID STIMULATING HORMONE (BEAKER) (test 0.27 uIU/mL 0.35-4.94 rcog=440) POCT-GLUCOSE [id number] 13:47:00 Test Item Value Reference Range Comments POC-GLUCOSE METER (BEAKER) 398 mg/dL 70-110 TESTED AT [facility] [address] (test xncn=2055) [place] [address] CREATININE, RANDOM [id number] 13:43:00 Test Item Value Reference Range Comments CREATININE URINE (BEAKER) (test kzky=971) 85.4 mg/dL Reference Range: No NormalsPROTEIN, RANDOM [id number] 13:43:00 Test Item Value Reference Range Comments PROTEIN, URINE (BEAKER) (test aynv=6390) 75 mg/dL 0-14 B-TYPE NATRIURETIC FACTOR (BNP)2017-07-18 13:17:00 Test Item Value Reference Range Comments B-TYPE NATRIURETIC PEPTIDE (BEAKER) (test 1847 pg/mL 0-100 ramj=023) BASIC METABOLIC [id number] 13:13:00 Test Item Value Reference Range Comments SODIUM (BEAKER) (test 138 meq/L 136-145 mhpa=942) POTASSIUM (BEAKER) (test 4.8 meq/L 3.5-5.1 esin=823) CHLORIDE (BEAKER) (test 101 meq/L 98-107 usuv=734) CO2 (BEAKER) (test 26 meq/L 22-29 xszx=129) BLOOD UREA NITROGEN 21 mg/dL 7-21 (BEAKER) (test uybl=999) CREATININE (BEAKER) (test 1.62 mg/dL 0.57-1.25 kqrl=791) GLUCOSE RANDOM (BEAKER) 527 mg/dL 70-105 (test hzhx=450) CALCIUM (BEAKER) (test 8.9 mg/dL 8.4-10.2 ehlv=381) EGFR (BEAKER) (test 38 mL/min/1.73 sq m ESTIMATED GFR IS NOT azwo=9166) ACCURATE CREATININE CLEARANCE IN PREDICTING GLOMERULAR FILTRATION RATE. ESTIMATED GFR IS NOT APPLICABLE FOR DIALYSIS PATIENTS. If last glucose was less than 500, may do bedside glucose instead of serum glucose.[id number] 13:12:00 Test Item Value Reference Range Comments MAGNESIUM (BEAKER) (test cpuq=593) 1.9 mg/dL 1.6-2.6 If last glucose was less than 500, may do bedside glucose instead of serum glucose.[id number] 13:12:00 Test Item Value Reference Range Comments LIPASE (BEAKER) (test myre=301) 106 U/L 8-78 If last glucose was less than 500, may do bedside glucose instead of serum glucose.[id number] 13:11:00 Test Item Value Reference Range Comments PHOSPHORUS (BEAKER) (test oigp=709) 3.3 mg/dL 2.3-4.7 If last glucose was less than 500, may do bedside glucose instead of serum glucose.POCT-GLUCOSE [id number] 12:49:00 Test Item Value Reference Range Comments POC-GLUCOSE METER (BEAKER) 498 mg/dL 70-110 Notified PAULA BERGER/TESTED AT [facility] (test nazv=9106) [address] [facility] [place] [address] LACTIC ACID, VENOUS, WHOLE [id number] 12:11:00 Test Item Value Reference Range Comments LACTATE BLOOD VENOUS (2) (BEAKER) (test 3.8 mmol/L 0.5-2.2 kjjh=4971) Effective 08/06/2015: Units/Reference Range ChangeNew: 0.5-2.2 mmol/L Previous: 5 -20 mg/[id number] 12:10:00 Test Item Value Reference Range Comments PROCALCITONIN (BEAKER) (test zfhw=4914) 3.80 ng/mL <0.05 SEPSIS RISK (ng/mL)Low: 0.05-0.50Intermediate: 0.51-2.00High: & gt;=2.01CBC W/PLT COUNT & AUTO [id number] 12:10:00 Test Item Value Reference Range Comments WHITE BLOOD CELL COUNT (BEAKER) (test geqq=237) 11.2 K/ L 3.5-10.5 RED BLOOD CELL COUNT (BEAKER) (test piuw=899) 3.98 M/ L 3.93-5.22 HEMOGLOBIN (BEAKER) (test rivs=552) 12.0 GM/DL 11.2-15.7 HEMATOCRIT (BEAKER) (test pagg=671) 38.5 % 34.1-44.9 MEAN CORPUSCULAR VOLUME (BEAKER) (test sgjw=155) 96.7 fL 79.4-94.8 MEAN CORPUSCULAR HEMOGLOBIN (BEAKER) (test 30.2 pg 25.6-32.2 dqpt=821) MEAN CORPUSCULAR HEMOGLOBIN CONC (BEAKER) (test 31.2 GM/DL 32.2-35.5 uehf=476) RED CELL DISTRIBUTION WIDTH (BEAKER) (test 13.1 % 11.7-14.4 bdjy=284) PLATELET COUNT (BEAKER) (test mznf=494) 222 K/CU MM 150-450 MEAN PLATELET VOLUME (BEAKER) (test zfla=520) 10.2 fL 9.4-12.3 NUCLEATED RED BLOOD CELLS (BEAKER) (test 0 /100 WBC 0-0 bzqt=978) NEUTROPHILS RELATIVE PERCENT (BEAKER) (test 96 % hjeo=342) LYMPHOCYTES RELATIVE PERCENT (BEAKER) (test 2 % lwvn=691) MONOCYTES RELATIVE PERCENT (BEAKER) (test 2 % ewak=810) EOSINOPHILS RELATIVE PERCENT (BEAKER) (test 0 % iijg=204) BASOPHILS RELATIVE PERCENT (BEAKER) (test 0 % cwlp=726) NEUTROPHILS ABSOLUTE COUNT (BEAKER) (test 10.72 K/ L 1.56-6.13 cwpq=760) LYMPHOCYTES ABSOLUTE COUNT (BEAKER) (test 0.24 K/ L 1.18-3.74 jfnq=945) MONOCYTES ABSOLUTE COUNT (BEAKER) (test 0.22 K/ L 0.24-0.36 urdv=089) EOSINOPHILS ABSOLUTE COUNT (BEAKER) (test 0.00 K/ L 0.04-0.36 nasg=156) BASOPHILS ABSOLUTE COUNT (BEAKER) (test 0.01 K/ L 0.01-0.08 dgra=103) IMMATURE GRANULOCYTES-RELATIVE PERCENT (BEAKER) 0 % 0-1 (test vjhm=1563) BASIC METABOLIC [id number] 11:35:00 Test Item Value Reference Range Comments SODIUM (BEAKER) (test 136 meq/L 136-145 yyft=344) POTASSIUM (BEAKER) (test 4.8 meq/L 3.5-5.1 licw=578) CHLORIDE (BEAKER) (test 99 meq/L 98-107 aghh=027) CO2 (BEAKER) (test 25 meq/L 22-29 qsex=772) BLOOD UREA NITROGEN 19 mg/dL 7-21 (BEAKER) (test xdos=350) CREATININE (BEAKER) (test 1.61 mg/dL 0.57-1.25 zowk=321) GLUCOSE RANDOM (BEAKER) 568 mg/dL 70-105 (test mgcs=406) CALCIUM (BEAKER) (test 8.9 mg/dL 8.4-10.2 fypf=121) EGFR (BEAKER) (test 38 mL/min/1.73 sq m ESTIMATED GFR IS NOT rohz=2702) ACCURATE CREATININE CLEARANCE IN PREDICTING GLOMERULAR FILTRATION RATE. ESTIMATED GFR IS NOT APPLICABLE FOR DIALYSIS PATIENTS. BLOOD GAS, [id number] 10:57:00 Test Item Value Reference Range Comments PH ARTERIAL (BEAKER) (test cref=070) 7.36 7.35-7.45 PCO2 ARTERIAL (BEAKER) (test dtlu=770) 47 mmHg 35-45 PO2 ARTERIAL (BEAKER) (test ipug=308) 78 mmHg 80-90 O2 SATURATION ARTERIAL (BEAKER) (test xchi=862) 95.0 % 96.0-97.0 HCO3 ARTERIAL (BEAKER) (test gwlw=660) 26 mmol/L 21-29 BASE EXCESS ARTERIAL (BEAKER) (test ynti=913) 0.4 mmol/L -2.0-3.0 PATIENT TEMPERATURE (BEAKER) (test uvit=7734) 37.0 C FIO2 (BEAKER) (test lgkw=7114) 100.0 % RAD, CHEST, 1 VIEW, NON [id number] 10:38:00Reason for exam:->IABP Should this be performed [...] MDReport Verified Date/Time: 07/18/2017 10:38:31 Reading Location: [facility] Radiology Reading Room CBC W/PLT COUNT & AUTO [id number] 10: 01:00 Test Item Value Reference Range Comments WHITE BLOOD CELL COUNT (BEAKER) (test lvnk=799) 12.8 K/ L 3.5-10.5 RED BLOOD CELL COUNT (BEAKER) (test iojo=718) 3.95 M/ L 3.93-5.22 HEMOGLOBIN (BEAKER) (test eakm=854) 11.9 GM/DL 11.2-15.7 HEMATOCRIT (BEAKER) (test wbbl=092) 38.3 % 34.1-44.9 MEAN CORPUSCULAR VOLUME (BEAKER) (test cuxe=009) 97.0 fL 79.4-94.8 MEAN CORPUSCULAR HEMOGLOBIN (BEAKER) (test 30.1 pg 25.6-32.2 khwv=573) MEAN CORPUSCULAR HEMOGLOBIN CONC (BEAKER) (test 31.1 GM/DL 32.2-35.5 trra=734) RED CELL DISTRIBUTION WIDTH (BEAKER) (test 13.1 % 11.7-14.4 cyus=554) PLATELET COUNT (BEAKER) (test sotv=303) 231 K/CU MM 150-450 MEAN PLATELET VOLUME (BEAKER) (test nxkb=584) 10.4 fL 9.4-12.3 NUCLEATED RED BLOOD CELLS (BEAKER) (test 0 /100 WBC 0-0 hbrk=857) NEUTROPHILS RELATIVE PERCENT (BEAKER) (test 91 % meoy=193) LYMPHOCYTES RELATIVE PERCENT (BEAKER) (test 4 % vmdy=459) MONOCYTES RELATIVE PERCENT (BEAKER) (test 4 % lyng=706) EOSINOPHILS RELATIVE PERCENT (BEAKER) (test 0 % dpvr=406) BASOPHILS RELATIVE PERCENT (BEAKER) (test 0 % tiet=442) NEUTROPHILS ABSOLUTE COUNT (BEAKER) (test 11.66 K/ L 1.56-6.13 exin=253) LYMPHOCYTES ABSOLUTE COUNT (BEAKER) (test 0.53 K/ L 1.18-3.74 lvax=804) MONOCYTES ABSOLUTE COUNT (BEAKER) (test 0.49 K/ L 0.24-0.36 sdfe=481) EOSINOPHILS ABSOLUTE COUNT (BEAKER) (test 0.01 K/ L 0.04-0.36 iwib=541) BASOPHILS ABSOLUTE COUNT (BEAKER) (test 0.03 K/ L 0.01-0.08 kuzr=724) IMMATURE GRANULOCYTES-RELATIVE PERCENT (BEAKER) 0 % 0-1 (test lrcd=7089) COMPREHENSIVE METABOLIC [id number] 09:38:00 Test Item Value Reference Range Comments TOTAL PROTEIN (BEAKER) 6.7 gm/dL 6.0-8.3 Specimen slightly (test livw=734) hemolyzed ALBUMIN (BEAKER) (test 3.5 g/dL 3.5-5.0 Specimen slightly dfrn=8030) hemolyzed ALKALINE PHOSPHATASE 70 U/L 40-150 (BEAKER) (test efrc=587) BILIRUBIN TOTAL (BEAKER) 0.6 mg/dL 0.2-1.2 Specimen slightly (test ztph=972) hemolyzed SODIUM (BEAKER) (test 134 meq/L 136-145 hhli=181) POTASSIUM (BEAKER) (test 4.7 meq/L 3.5-5.1 Specimen slightly mkdj=458) hemolyzed CHLORIDE (BEAKER) (test 98 meq/L 98-107 fjxk=892) CO2 (BEAKER) (test 25 meq/L 22-29 wgzc=932) BLOOD UREA NITROGEN 19 mg/dL 7-21 (BEAKER) (test kjpq=233) CREATININE (BEAKER) (test 1.57 mg/dL 0.57-1.25 Specimen slightly hrbd=318) hemolyzed GLUCOSE RANDOM (BEAKER) 652 mg/dL 70-105 (test mmcg=124) CALCIUM (BEAKER) (test 8.7 mg/dL 8.4-10.2 lymg=048) AST (SGOT) (BEAKER) (test 343 U/L 5-34 Specimen slightly ejjo=085) hemolyzed ALT (SGPT) (BEAKER) (test 89 U/L 6-55 Specimen slightly quau=372) hemolyzed EGFR (BEAKER) (test 39 mL/min/1.73 sq m ESTIMATED GFR IS NOT gjgx=6868) ACCURATE CREATININE CLEARANCE IN PREDICTING GLOMERULAR FILTRATION RATE. ESTIMATED GFR IS NOT APPLICABLE FOR DIALYSIS PATIENTS. [id number] 09:09:00 Test Item Value Reference Range Comments ACTIVATED CLOTTING TIME 252 sec TESTED AT [facility] [address] [facility] (BEAKER) (test jsfs=776) [place] [address] PROTHROMBIN [id number] 09:01:00 Test Item Value Reference Range Comments PROTIME (BEAKER) (test wlwl=381) 18.3 seconds 11.7-14.7 INR (BEAKER) (test jeuj=860) 1.5 <=5.9 RECOMMENDED COUMADIN/WARFARIN INR THERAPY RANGESSTANDARD DOSE: 2.0 - 3.0 Includes: PROPHYLAXIS forvenous thrombosis, systemic embolization; TREATMENT for venous thrombosis and/or pulmonary embolus.HIGH RISK: Target INR is 2.5-3.5 for patients with mechanical heart valves.[id number] 08:09:00 Test Item Value Reference Range Comments ACTIVATED CLOTTING TIME 213 sec TESTED AT [address] ([facility]) (test byid=477) [place] [address] [id number] 08:09:00 Test Item Value Reference Range Comments ACTIVATED CLOTTING TIME 263 sec TESTED AT [address] ([facility]) (test lhta=522) [place] [address] BLOOD GAS, [id number] 07:50:00 Test Item Value Reference Range Comments PH ARTERIAL (BEAKER) (test rrvr=285) 7.20 7.35-7.45 PCO2 ARTERIAL (BEAKER) (test getx=815) 65 mmHg 35-45 PO2 ARTERIAL (BEAKER) (test axyf=982) 133 mmHg 80-90 O2 SATURATION ARTERIAL (BEAKER) (test kzpl=421) 98.1 % 96.0-97.0 HCO3 ARTERIAL (BEAKER) (test svip=023) 25 mmol/L 21-29 BASE EXCESS ARTERIAL (BEAKER) (test krri=555) -4.3 mmol/L -2.0-3.0 PATIENT TEMPERATURE (BEAKER) (test vvrm=6729) 36.0 C FIO2 (BEAKER) (test uhke=8460) 100.0 % POCT-GLUCOSE [id number] 12:27:00 Test Item Value Reference Range Comments POC-GLUCOSE METER (BEAKER) 156 mg/dL 70-110 TESTED AT [address] (test txva=6185) [place] [address] BASIC METABOLIC [id number] 05:45:00 Test Item Value Reference Range Comments SODIUM (BEAKER) (test 141 meq/L 136-145 zqgo=436) POTASSIUM (BEAKER) (test 4.1 meq/L 3.5-5.1 egct=491) CHLORIDE (BEAKER) (test 106 meq/L 98-107 dxpm=117) CO2 (BEAKER) (test 26 meq/L 22-29 hxik=664) BLOOD UREA NITROGEN 11 mg/dL 7-21 (BEAKER) (test lsra=418) CREATININE (BEAKER) (test 0.83 mg/dL 0.57-1.25 ztho=099) GLUCOSE RANDOM (BEAKER) 139 mg/dL 70-105 (test wimg=088) CALCIUM (BEAKER) (test 8.5 mg/dL 8.4-10.2 equk=690) EGFR (BEAKER) (test 83 mL/min/1.73 sq m ESTIMATED GFR IS NOT mqce=9973) ACCURATE CREATININE CLEARANCE IN PREDICTING GLOMERULAR FILTRATION RATE. ESTIMATED GFR IS NOT APPLICABLE FOR DIALYSIS PATIENTS. POCT-GLUCOSE [id number] 21:10:00 Test Item Value Reference Range Comments POC-GLUCOSE METER (BEAKER) 103 mg/dL 70-110 TESTED AT [address] (test yquf=9095) [place] [address] POCT-GLUCOSE [id number] 17:51:00 Test Item Value Reference Range Comments POC-GLUCOSE METER (BEAKER) 138 mg/dL 70-110 TESTED AT [address] (test rmmf=4476) [place] [address] POCT-GLUCOSE [id number] 12:45:00 Test Item Value Reference Range Comments POC-GLUCOSE METER (BEAKER) 294 mg/dL 70-110 TESTED AT [address] (test oqgc=2792) [place] [address] CBC WITH PLATELET COUNT + MANUAL [id number] 07:04:00 Test Item Value Reference Range Comments WHITE BLOOD CELL COUNT (BEAKER) (test aykp=653) 10.7 K/ L 4.0-10.0 RED BLOOD CELL COUNT (BEAKER) (test wmkj=204) 3.91 M/ L 4.00-5.00 HEMOGLOBIN (BEAKER) (test bahn=697) 12.9 GM/DL 12.0-15.0 HEMATOCRIT (BEAKER) (test koeg=889) 39.0 % 36.0-45.0 MEAN CORPUSCULAR VOLUME (BEAKER) (test gdnq=422) 99.6 fL 82.0-99.0 MEAN CORPUSCULAR HEMOGLOBIN (BEAKER) (test 32.9 pg 27.0-33.0 jkqk=773) MEAN CORPUSCULAR HEMOGLOBIN CONC (BEAKER) (test 33.0 GM/DL 32.0-36.0 keem=995) RED CELL DISTRIBUTION WIDTH (BEAKER) (test 12.8 % 10.3-14.2 mzxj=920) PLATELET COUNT (BEAKER) (test frcv=546) 251 K/CU MM 150-430 MEAN PLATELET VOLUME (BEAKER) (test psci=423) 8.1 fL 6.5-10.5 NUCLEATED RED BLOOD CELLS (BEAKER) (test 0 /100 WBC 0-0 ukcz=806) NEUTROPHILS RELATIVE PERCENT (BEAKER) (test 80 % dfkv=524) LYMPHOCYTES RELATIVE PERCENT (BEAKER) (test 14 % hmvh=318) MONOCYTES RELATIVE PERCENT (BEAKER) (test 6 % frbo=358) EOSINOPHILS RELATIVE PERCENT (BEAKER) (test 0 % skuz=989) BASOPHILS RELATIVE PERCENT (BEAKER) (test 0 % gbwo=427) NEUTROPHILS ABSOLUTE COUNT (BEAKER) (test 8.55 K/ L 1.80-8.00 eimq=359) LYMPHOCYTES ABSOLUTE COUNT (BEAKER) (test 1.46 K/ L 1.48-4.50 yxnh=113) MONOCYTES ABSOLUTE COUNT (BEAKER) (test 0.60 K/ L 0.00-1.30 invx=322) EOSINOPHILS ABSOLUTE COUNT (BEAKER) (test 0.05 K/ L 0.00-0.50 fdsk=913) BASOPHILS ABSOLUTE COUNT (BEAKER) (test 0.02 K/ L 0.00-0.20 hhsv=264) 0.00(MANUAL DIFFERENTIAL)2016-06-14 07:04:00 Test Item Value Reference Range Comments TOTAL COUNTED (BEAKER) (test kwrb=7149) PLT MORPHOLOGY (BEAKER) (test gltd=880) Normal RBC MORPHOLOGY (BEAKER) (test kzyv=902) Normal ATYPICAL LYMPHS(BEAKER) (test kvrk=8776) Present BASIC METABOLIC [id number] 05:05:00 Test Item Value Reference Range Comments SODIUM (BEAKER) (test 140 meq/L 136-145 mlzb=250) POTASSIUM (BEAKER) (test 3.8 meq/L 3.5-5.1 opuh=577) CHLORIDE (BEAKER) (test 107 meq/L 98-107 lyee=618) CO2 (BEAKER) (test 26 meq/L 22-29 hygf=754) BLOOD UREA NITROGEN 13 mg/dL 7-21 (BEAKER) (test bbpn=931) CREATININE (BEAKER) (test 0.80 mg/dL 0.57-1.25 ahfv=303) GLUCOSE RANDOM (BEAKER) 177 mg/dL 70-105 (test gzmc=627) CALCIUM (BEAKER) (test 8.3 mg/dL 8.4-10.2 vdpo=147) EGFR (BEAKER) (test 86 mL/min/1.73 sq m ESTIMATED GFR IS NOT tzcv=2721) ACCURATE CREATININE CLEARANCE IN PREDICTING GLOMERULAR FILTRATION RATE. ESTIMATED GFR IS NOT APPLICABLE FOR DIALYSIS PATIENTS. [id number] 04:48:00 Test Item Value Reference Range Comments PROTIME (BEAKER) (test liaj=496) 13.0 seconds 11.7-14.7 INR (BEAKER) (test edog=737) 1.0 <=5.9 PARTIAL THROMBOPLASTIN TIME (BEAKER) (test 31.8 seconds 22.5-36.0 nula=603) RECOMMENDED COUMADIN/WARFARIN INR THERAPY RANGESSTANDARD DOSE: 2.0 - 3.0 Includes: PROPHYLAXIS forvenous thrombosis, systemic embolization; TREATMENT for venous thrombosis and/or pulmonary embolus.HIGH RISK: Target INR is 2.5-3.5 for patients with mechanical heart valves.POCT-GLUCOSE [id number] 22:11:00 Test Item Value Reference Range Comments POC-GLUCOSE METER (BEAKER) 200 mg/dL 70-110 TESTED AT [facility] [address] [facility] (test uruk=8532) [facility] [address] POCT-GLUCOSE [id number] 17:13:00 Test Item Value Reference Range Comments POC-GLUCOSE METER (BEAKER) 225 mg/dL 70-110 TESTED AT [facility] [address] [facility] (test knub=7269) [facility] [address] POCT-GLUCOSE [id number] 12:22:00 Test Item Value Reference Range Comments POC-GLUCOSE METER (BEAKER) 309 mg/dL 70-110 Notified PAULA BERGER/TESTED AT [facility] (test uizc=5625) [address] [place] [address] URINALYSIS W/ [id number] 12:09:00 Test Item Value Reference Range Comments COLOR (BEAKER) (test ipme=353) Yellow CLARITY (BEAKER) (test tzvr=531) Clear SPECIFIC GRAVITY UA (BEAKER) (test zkbu=417) 1.035 1.001-1.035 PH UA (BEAKER) (test hsbb=360) 5.0 5.0-8.0 PROTEIN UA (BEAKER) (test tado=879) Negative Negative GLUCOSE UA (BEAKER) (test lxqz=053) 150 mg/dL Negative KETONES UA (BEAKER) (test rupn=305) Negative Negative BILIRUBIN UA (BEAKER) (test kybl=640) Negative Negative BLOOD UA (BEAKER) (test wmnl=961) Small Negative NITRITE UA (BEAKER) (test axxo=794) Negative Negative LEUKOCYTE ESTERASE UA (BEAKER) (test jmvy=746) Negative Negative UROBILINOGEN UA (BEAKER) (test pito=557) 0.2 mg/dL 0.2-1.0 RBC UA (BEAKER) (test tyvy=348) 6 /HPF WBC UA (BEAKER) (test tkyf=412) 1 /HPF MUCUS (BEAKER) (test hjmr=0888) Rare SQUAMOUS EPITHELIAL (BEAKER) (test vddf=744) 6 /HPF HYALINE CASTS (BEAKER) (test ihry=486) 2 /LPF SOURCE(BEAKER) (test rvyw=2859) POCT-GLUCOSE [id number] 07:58:00 Test Item Value Reference Range Comments POC-GLUCOSE METER (BEAKER) 236 mg/dL 70-110 TESTED AT [address] (test htwh=4812) [facility] [address] BASIC METABOLIC [id number] 04:10:00 Test Item Value Reference Range Comments SODIUM (BEAKER) (test 138 meq/L 136-145 lisq=775) POTASSIUM (BEAKER) (test 4.2 meq/L 3.5-5.1 pomk=396) CHLORIDE (BEAKER) (test 107 meq/L 98-107 eyoc=402) CO2 (BEAKER) (test 22 meq/L 22-29 trmt=201) BLOOD UREA NITROGEN 20 mg/dL 7-21 (BEAKER) (test whlr=871) CREATININE (BEAKER) (test 1.00 mg/dL 0.57-1.25 lbmo=275) GLUCOSE RANDOM (BEAKER) 246 mg/dL 70-105 (test sbca=885) CALCIUM (BEAKER) (test 8.8 mg/dL 8.4-10.2 qvpf=763) EGFR (BEAKER) (test 67 mL/min/1.73 sq m ESTIMATED GFR IS NOT daew=9080) ACCURATE CREATININE CLEARANCE IN PREDICTING GLOMERULAR FILTRATION RATE. ESTIMATED GFR IS NOT APPLICABLE FOR DIALYSIS PATIENTS. [id number] 04:03:00 Test Item Value Reference Range Comments PROTIME (BEAKER) (test gwzc=160) 12.8 seconds 11.7-14.7 INR (BEAKER) (test bxqg=073) 1.0 <=5.9 PARTIAL THROMBOPLASTIN TIME (BEAKER) (test 29.6 seconds 22.5-36.0 rdxz=404) RECOMMENDED COUMADIN/WARFARIN INR THERAPY RANGESSTANDARD DOSE: 2.0 - 3.0 Includes: PROPHYLAXIS forvenous thrombosis, systemic embolization; TREATMENT for venous thrombosis and/or pulmonary embolus.HIGH RISK: Target INR is 2.5-3.5 for patients with mechanical heart valves.CBC WITH PLATELET COUNT + MANUAL [id number] 03:58:00 Test Item Value Reference Range Comments WHITE BLOOD CELL COUNT (BEAKER) (test jgff=145) 14.3 K/ L 4.0-10.0 RED BLOOD CELL COUNT (BEAKER) (test fqwy=868) 4.03 M/ L 4.00-5.00 HEMOGLOBIN (BEAKER) (test uldo=641) 13.1 GM/DL 12.0-15.0 HEMATOCRIT (BEAKER) (test fshv=380) 39.7 % 36.0-45.0 MEAN CORPUSCULAR VOLUME (BEAKER) (test cqop=075) 98.5 fL 82.0-99.0 MEAN CORPUSCULAR HEMOGLOBIN (BEAKER) (test 32.6 pg 27.0-33.0 jeqm=919) MEAN CORPUSCULAR HEMOGLOBIN CONC (BEAKER) (test 33.1 GM/DL 32.0-36.0 hcie=018) RED CELL DISTRIBUTION WIDTH (BEAKER) (test 12.9 % 10.3-14.2 esev=516) PLATELET COUNT (BEAKER) (test satw=377) 271 K/CU MM 150-430 MEAN PLATELET VOLUME (BEAKER) (test oqlg=001) 7.7 fL 6.5-10.5 NUCLEATED RED BLOOD CELLS (BEAKER) (test 0 /100 WBC 0-0 albx=150) NEUTROPHILS RELATIVE PERCENT (BEAKER) (test 87 % mjjc=745) LYMPHOCYTES RELATIVE PERCENT (BEAKER) (test 7 % gbdh=155) MONOCYTES RELATIVE PERCENT (BEAKER) (test 6 % yptt=900) EOSINOPHILS RELATIVE PERCENT (BEAKER) (test 0 % bvqn=783) BASOPHILS RELATIVE PERCENT (BEAKER) (test 0 % etvn=428) NEUTROPHILS ABSOLUTE COUNT (BEAKER) (test 12.40 K/ L 1.80-8.00 mlbd=973) LYMPHOCYTES ABSOLUTE COUNT (BEAKER) (test 1.06 K/ L 1.48-4.50 lmxa=883) MONOCYTES ABSOLUTE COUNT (BEAKER) (test 0.81 K/ L 0.00-1.30 edxr=529) EOSINOPHILS ABSOLUTE COUNT (BEAKER) (test 0.01 K/ L 0.00-0.50 wivy=680) BASOPHILS ABSOLUTE COUNT (BEAKER) (test 0.03 K/ L 0.00-0.20 wozj=886) 0.000.530.000.000.520.000.000.000.00POCT-GLUCOSE [id number] 22:17:00 Test Item Value Reference Range Comments POC-GLUCOSE METER (BEAKER) 260 mg/dL 70-110 TESTED AT [address] (test mqmc=1476) [facility] [address] POCT-GLUCOSE [id number] 12:11:00 Test Item Value Reference Range Comments POC-GLUCOSE METER (BEAKER) 278 mg/dL 70-110 TESTED AT [address] (test skmp=7808) [facility] [address] HEMOGLOBIN [id number] 10:46:00 Test Item Value Reference Range Comments HEMOGLOBIN A1C (BEAKER) (test qses=123) 9.7 % 4.3-6.1 DC\S\Delta Check\S\NONEPOCT-GLUCOSE [id number] 07:15:00 Test Item Value Reference Range Comments POC-GLUCOSE METER (BEAKER) 283 mg/dL 70-110 TESTED AT [facility] [address] (test mwme=7154) [facility] [address] BASIC METABOLIC [id number] 04:43:00 Test Item Value Reference Range Comments SODIUM (BEAKER) (test 136 meq/L 136-145 wkmg=537) POTASSIUM (BEAKER) (test 4.0 meq/L 3.5-5.1 imbl=218) CHLORIDE (BEAKER) (test 102 meq/L 98-107 bmvb=100) CO2 (BEAKER) (test 27 meq/L 22-29 gjtu=956) BLOOD UREA NITROGEN 18 mg/dL 7-21 (BEAKER) (test plxd=424) CREATININE (BEAKER) (test 0.95 mg/dL 0.57-1.25 pjqd=283) GLUCOSE RANDOM (BEAKER) 256 mg/dL 70-105 (test vped=058) CALCIUM (BEAKER) (test 9.0 mg/dL 8.4-10.2 pgbt=020) EGFR (BEAKER) (test 71 mL/min/1.73 sq m ESTIMATED GFR IS NOT dwra=6964) ACCURATE CREATININE CLEARANCE IN PREDICTING GLOMERULAR FILTRATION RATE. ESTIMATED GFR IS NOT APPLICABLE FOR DIALYSIS PATIENTS. CBC WITH PLATELET COUNT + MANUAL [id number] 04:28:00 Test Item Value Reference Range Comments WHITE BLOOD CELL COUNT (BEAKER) (test dulh=028) 11.6 K/ L 4.0-10.0 RED BLOOD CELL COUNT (BEAKER) (test ryuu=939) 4.15 M/ L 4.00-5.00 HEMOGLOBIN (BEAKER) (test vjaj=860) 13.3 GM/DL 12.0-15.0 HEMATOCRIT (BEAKER) (test slph=316) 40.5 % 36.0-45.0 MEAN CORPUSCULAR VOLUME (BEAKER) (test uegp=526) 97.6 fL 82.0-99.0 MEAN CORPUSCULAR HEMOGLOBIN (BEAKER) (test 32.1 pg 27.0-33.0 hihk=843) MEAN CORPUSCULAR HEMOGLOBIN CONC (BEAKER) (test 32.9 GM/DL 32.0-36.0 znuo=045) RED CELL DISTRIBUTION WIDTH (BEAKER) (test 12.7 % 10.3-14.2 jrxk=686) PLATELET COUNT (BEAKER) (test ljou=998) 263 K/CU MM 150-430 MEAN PLATELET VOLUME (BEAKER) (test gekz=648) 8.2 fL 6.5-10.5 NUCLEATED RED BLOOD CELLS (BEAKER) (test 0 /100 WBC 0-0 zdqq=311) NEUTROPHILS RELATIVE PERCENT (BEAKER) (test 90 % knlm=390) LYMPHOCYTES RELATIVE PERCENT (BEAKER) (test 8 % ckcm=643) MONOCYTES RELATIVE PERCENT (BEAKER) (test 2 % eumf=853) EOSINOPHILS RELATIVE PERCENT (BEAKER) (test 0 % iyjf=560) BASOPHILS RELATIVE PERCENT (BEAKER) (test 0 % vpht=162) NEUTROPHILS ABSOLUTE COUNT (BEAKER) (test 10.40 K/ L 1.80-8.00 nefl=359) LYMPHOCYTES ABSOLUTE COUNT (BEAKER) (test 0.95 K/ L 1.48-4.50 rezj=195) MONOCYTES ABSOLUTE COUNT (BEAKER) (test 0.20 K/ L 0.00-1.30 qipt=227) EOSINOPHILS ABSOLUTE COUNT (BEAKER) (test 0.02 K/ L 0.00-0.50 zmlc=433) BASOPHILS ABSOLUTE COUNT (BEAKER) (test 0.02 K/ L 0.00-0.20 ankp=161) 0.00PT/[id number] 04:25:00 Test Item Value Reference Range Comments PROTIME (BEAKER) (test tudw=954) 13.7 seconds 11.7-14.7 INR (BEAKER) (test kprz=246) 1.1 <=5.9 PARTIAL THROMBOPLASTIN TIME (BEAKER) (test 32.8 seconds 22.5-36.0 lzxc=044) RECOMMENDED COUMADIN/WARFARIN INR THERAPY RANGESSTANDARD DOSE: 2.0 - 3.0 Includes: PROPHYLAXIS forvenous thrombosis, systemic embolization; TREATMENT for venous thrombosis and/or pulmonary embolus.HIGH RISK: Target INR is 2.5-3.5 for patients with mechanical heart valves.POCT-GLUCOSE [id number] 02:47:00 Test Item Value Reference Range Comments POC-GLUCOSE METER (BEAKER) 278 mg/dL 70-110 TESTED AT [facility] [address] [facility] (test kteo=7418) [facility] [address] POCT-GLUCOSE [id number] 22:12:00 Test Item Value Reference Range Comments POC-GLUCOSE METER (BEAKER) 258 mg/dL 70-110 TESTED AT [facility] [address] (test fcsj=7218) [facility] [address] [id number] 15:44:00 Test Item Value Reference Range Comments MAGNESIUM (BEAKER) (test 2.1 mg/dL 1.6-2.6 Specimen slightly hemolyzed lbsl=989) [id number] 15:44:00 Test Item Value Reference Range Comments PHOSPHORUS (BEAKER) (test 2.9 mg/dL 2.3-4.7 Specimen slightly hemolyzed xaaq=885) BASIC METABOLIC [id number] 15:44:00 Test Item Value Reference Range Comments SODIUM (BEAKER) (test 137 meq/L 136-145 onhb=543) POTASSIUM (BEAKER) (test 4.4 meq/L 3.5-5.1 Specimen slightly qbah=167) hemolyzed CHLORIDE (BEAKER) (test 99 meq/L 98-107 rsjl=302) CO2 (BEAKER) (test 27 meq/L 22-29 mxua=088) BLOOD UREA NITROGEN 13 mg/dL 7-21 (BEAKER) (test mums=847) CREATININE (BEAKER) (test 0.96 mg/dL 0.57-1.25 Specimen slightly kxiv=924) hemolyzed GLUCOSE RANDOM (BEAKER) 250 mg/dL 70-105 (test mtjq=738) CALCIUM (BEAKER) (test 9.6 mg/dL 8.4-10.2 zech=044) EGFR (BEAKER) (test 70 mL/min/1.73 sq m ESTIMATED GFR IS NOT wfjc=0860) ACCURATE CREATININE CLEARANCE IN PREDICTING GLOMERULAR FILTRATION RATE. ESTIMATED GFR IS NOT APPLICABLE FOR DIALYSIS PATIENTS. CBC WITH PLATELET COUNT + MANUAL [id number] 15:39:00 Test Item Value Reference Range Comments WHITE BLOOD CELL COUNT (BEAKER) (test zyfa=504) 9.5 K/ L 4.0-10.0 RED BLOOD CELL COUNT (BEAKER) (test swjx=809) 4.18 M/ L 4.00-5.00 HEMOGLOBIN (BEAKER) (test uncg=403) 14.0 GM/DL 12.0-15.0 HEMATOCRIT (BEAKER) (test xwzt=735) 40.7 % 36.0-45.0 MEAN CORPUSCULAR VOLUME (BEAKER) (test bpri=795) 97.3 fL 82.0-99.0 MEAN CORPUSCULAR HEMOGLOBIN (BEAKER) (test 33.4 pg 27.0-33.0 hamg=237) MEAN CORPUSCULAR HEMOGLOBIN CONC (BEAKER) (test 34.3 GM/DL 32.0-36.0 uzgn=077) RED CELL DISTRIBUTION WIDTH (BEAKER) (test 12.6 % 10.3-14.2 daro=685) PLATELET COUNT (BEAKER) (test sgze=498) 253 K/CU MM 150-430 MEAN PLATELET VOLUME (BEAKER) (test vmog=705) 8.1 fL 6.5-10.5 NUCLEATED RED BLOOD CELLS (BEAKER) (test 0 /100 WBC 0-0 oipr=941) NEUTROPHILS RELATIVE PERCENT (BEAKER) (test 91 % otwv=948) LYMPHOCYTES RELATIVE PERCENT (BEAKER) (test 8 % yacs=283) MONOCYTES RELATIVE PERCENT (BEAKER) (test 1 % qoiw=554) EOSINOPHILS RELATIVE PERCENT (BEAKER) (test 0 % myuw=830) BASOPHILS RELATIVE PERCENT (BEAKER) (test 0 % tcod=602) NEUTROPHILS ABSOLUTE COUNT (BEAKER) (test 8.66 K/ L 1.80-8.00 ftut=739) LYMPHOCYTES ABSOLUTE COUNT (BEAKER) (test 0.78 K/ L 1.48-4.50 urnt=284) MONOCYTES ABSOLUTE COUNT (BEAKER) (test 0.07 K/ L 0.00-1.30 dxff=929) EOSINOPHILS ABSOLUTE COUNT (BEAKER) (test 0.01 K/ L 0.00-0.50 cbbx=514) BASOPHILS ABSOLUTE COUNT (BEAKER) (test 0.01 K/ L 0.00-0.20 acyq=606) [id number] 15:39:00 Test Item Value Reference Range Comments PROTIME (BEAKER) (test qjvr=406) 12.7 seconds 11.7-14.7 INR (BEAKER) (test flgs=612) 1.0 <=5.9 PARTIAL THROMBOPLASTIN TIME (BEAKER) (test 32.8 seconds 22.5-36.0 aqvu=007) RECOMMENDED COUMADIN/WARFARIN INR THERAPY RANGESSTANDARD DOSE: 2.0 - 3.0 Includes: PROPHYLAXIS forvenous thrombosis, systemic embolization; TREATMENT for venous thrombosis and/or pulmonary embolus.HIGH RISK: Target INR is 2.5-3.5 for patients with mechanical heart valves.
[2018-06-19] MEDS ORDERED: IPRATROPIUM BROM 0.5MG/2.5ML ONE (06:07)
[2018-06-19] MEDS ORDERED: ALBUTEROL 2.5 MG/3 ML NEB SOL ONE (06:07)
[2018-06-19] MEDS ORDERED: FUROSEMIDE 100 MG/10 ML VIAL IV ONE (06:08)
[2018-06-19 06:41] LABS: Absolute Lymphocytes (CBC) 0.6 K/uL (0.7-4.9); Absolute Monocytes 0.3 K/uL (0.1-1.3); Absolute Neutrophil 7.2 K/uL (1.8-8.0); Basophils % 0.8 % (0-1.3); Eosinophils % 0.6 % (0-4.4); Hematocrit 32.3 % (36.0-45.0); Lymphocytes % 7.6 % (15.3-44.8); MPV 9.3 fL (7.6-11.3); Monocytes % 3.9 % (3.3-12.3); RBC Red Blood Cell Count 3.35 M/uL (3.86-4.86)
[2018-06-19 06:43] LABS: Protime INR 1.15
[2018-06-19 07:10] LABS: Albumin 3.5 g/dL (3.4-5.0); Bilirubin Direct 0.3 mg/dL (0-0.2); Bilirubin Total 0.5 mg/dL (0.2-1.0); Magnesium 2.2 mg/dL (1.8-2.4); Potassium 4.6 mmol/L (3.5-5.1); Protein, Total 7.5 g/dL (6.4-8.2); Troponin (Emerg Dept Use Only) 0.04 ng/mL (0.0-0.045)
--- NOTE | 2018-06-19 07:39 | EDPHYS ---
Physician Documentation [facility] Name: Christa Ayala Age: 72 yrs Sex: Female : 1945 Arrival Date: 06/19/2018 Time: 05:25 Bed 7 Private MD: Kendrick Stevens ED Physician Junito Starkey HPI: 06/19 06:14 This 72 yrs old Black Female presents to ER via EMS with complaints of Breathing jr8 Difficulty. 06:14 The patient has shortness of breath at rest. Onset: The symptoms/episode began/occurred jr8 gradually, 2 day(s) ago, and became worse and became persistent. Duration: The symptoms are continuous. The patient's shortness of breath is aggravated by talking, walking. Associated signs and symptoms: Pertinent negatives: chest pain, non-productive cough, productive cough, fever, hemoptysis, vomiting. Severity of symptoms: At their worst the symptoms were moderate in the emergency department the symptoms are unchanged. It is unknown whether or not the patient has had similar symptoms in the past. The patient has not recently seen a physician. Historical: - Allergies: 05:43 Codeine; jd3 05:43 Iodine; jd3 - Home Meds: 05:43 aspirin 81 mg Oral TbEC 1 tab once daily [Active]; atorvastatin 40 mg Oral tab 1 tab jd3 nightly [Active]; Entresto 24-26 mg Oral tab twice a day [Active]; escitalopram oxalate 10 mg Oral tab 1 tab once daily [Active]; glimepiride 1 mg Oral tab 1 tab once daily [Active]; Lasix 40 mg Oral tab 1 tab 2 times per day [Active]; metoprolol tartrate 25 mg Oral tab 1 tab 2 times per day [Active]; pantoprazole 40 mg Oral TbEC 1 tab once daily [Active]; Plavix 75 mg Oral tab 1 tab once daily [Active]; ProAir HFA 90 mcg/actuation inhalation HFAA 1 puff as needed [Active]; Trellegy 100 mg/62.5mg/25mg daily [Active]; - PMHx: 05:43 CHF; Emphysema; enlarged aorta; Diabetes - NIDDM; COPD; Hypertension; Myocardial jd3 infarction; - Immunization history:: Adult Immunizations up to date. - Social history:: Smoking status: Patient/guardian denies using tobacco, the patient reports quitting approximately 4 years ago. - Ebola Screening: : Patient negative for fever greater than or equal to 101.5 degrees Fahrenheit, and additional compatible Ebola Virus Disease symptoms. ROS: 06:14 Eyes: Negative for injury, pain, redness, and discharge, ENT: Negative for injury, jr8 pain, and discharge, Neck: Negative for injury, pain, and swelling, Cardiovascular: Negative for chest pain, palpitations, and edema, Back: Negative for injury and pain, MS/Extremity: Negative for injury and deformity, Skin: Negative for injury, rash, and discoloration, Neuro: Negative for headache, weakness, numbness, tingling, and seizure. 06:14 Respiratory: Positive for dyspnea on exertion, shortness of breath. 06:14 Abdomen/GI: Positive for abdominal pain, Negative for nausea, vomiting, and diarrhea, abdominal cramps, abdominal distension, anorexia, dysphagia, hematemesis, black/tarry stool, rectal pain, rectal bleeding, bowel incontinence, flatulence. Exam: 06:14 Eyes: Pupils equal round and reactive to light, extra-ocular motions intact. Lids and jr8 lashes normal. Conjunctiva and sclera are non-icteric and not injected. Cornea within normal limits. Periorbital areas with no swelling, redness, or edema. ENT: Nares patent. No nasal discharge, no septal abnormalities noted. Tympanic membranes are normal and external auditory canals are clear. Oropharynx with no redness, swelling, or masses, exudates, or evidence of obstruction, uvula midline. Mucous membranes moist. Neck: Trachea midline, no thyromegaly or masses palpated, and no cervical lymphadenopathy. Supple, full range of motion without nuchal rigidity, or vertebral point tenderness. No Meningismus. Cardiovascular: Regular rate and rhythm with a normal S1 and S2. No gallops, murmurs, or rubs. Normal PMI, no JVD. No pulse deficits. Abdomen/GI: Soft, non-tender, with normal bowel sounds. No distension or tympany. No guarding or rebound. No evidence of tenderness throughout. Back: No spinal tenderness. No costovertebral tenderness. Full range of motion. Skin: Warm, dry with normal turgor. Normal color with no rashes, no lesions, and no evidence of cellulitis. MS/ Extremity: Pulses equal, no cyanosis. Neurovascular intact. Full, normal range of motion. Neuro: Awake and alert, GCS 15, oriented to person, place, time, and situation. Cranial nerves II-XII grossly intact. Motor strength 5/5 in all extremities. Sensory grossly intact. Cerebellar exam normal. Normal gait. 06:14 Respiratory: the patient does not display signs of respiratory distress, Respirations: tachypnea, that is mild, Breath sounds: rales, that are mild, are heard in the left posterior lower lobe, right posterior middle lobe and right posterior lower lobe. 06:45 ECG was reviewed by the Attending Physician. jr8 Vital Signs: 05:44 BP 141 / 107; Pulse 92; Resp 24 S; Temp 97.6(O); Pulse Ox 100% on 3 lpm NC; Weight jd3 67.59 kg (R); Height 5 ft. 6 in. (167.64 cm) (R); Pain 7/10; 07:00 BP 152 / 110; Pulse 100; Resp 19; Pulse Ox 100% ; bp 07:55 BP 148 / 101; Pulse 99; Resp 23; Pulse Ox 99% ; bp 09:00 BP 135 / 110; Pulse 99; Resp 23; Pulse Ox 96% ; bp 10:00 BP 129 / 101; Pulse 89; Resp 22; Pulse Ox 100% ; bp 05:44 Body Mass Index 24.05 (67.59 kg, 167.64 cm) jd3 MDM: 06:13 Patient medically screened. jr8 06:41 Differential diagnosis: CHF exacerbation, Chronic Obstructive Pulmonary Disease jr8 Myocardial Infarction pneumonia, pulmonary edema, Pulmonary Embolism Sepsis. 06:45 Test interpretation: by ED physician or midlevel provider: ECG. jr8 07:38 Data reviewed: vital signs, nurses notes, lab test result(s), EKG, radiologic studies, jr8 plain films. Counseling: I had a detailed discussion with the patient and/or guardian regarding: the historical points, exam findings, and any diagnostic results supporting the discharge/admit diagnosis, lab results, radiology results, the need for further work-up and treatment in the hospital. Physician consultation: Leni Youssef MD was called at 07:38, was contacted at 07:38, regarding admission, to the telemetry unit. consult, patient's condition, and will see patient. 07:38 ED course: Dr. Stevens still out to hospitalist. Admitted to Dr. Youssef . jr8 06/19 05:49 Order name: Basic Metabolic Panel gs 06/19 05:49 Order name: CBC with Diff; Complete Time: 08:18 gs 06/19 05:49 Order name: LFT's gs 06/19 05:49 Order name: Magnesium; Complete Time: 07:15 gs 06/19 05:49 Order name: NT PRO-BNP; Complete Time: 07:15 gs 06/19 05:49 Order name: PT-INR; Complete Time: 06:48 gs 06/19 05:49 Order name: Troponin (emerg Dept Use Only); Complete Time: 07:15 gs 06/19 05:49 Order name: XRAY Chest (1 view); Complete Time: 09:36 gs 06/19 05:49 Order name: Basic Metabolic Panel; Complete Time: 07:15 EDMS 06/19 05:49 Order name: Liver (Hepatic) Function; Complete Time: 07:15 EDMS 06/19 06:48 Order name: Manual Differential; Complete Time: 08:18 EDMS 06/19 05:49 Order name: EKG; Complete Time: 05:50 gs 06/19 05:49 Order name: Cardiac monitoring; Complete Time: 06:35 gs 06/19 05:49 Order name: EKG - Nurse/Tech; Complete Time: 06:14 gs 06/19 05:49 Order name: IV Saline Lock; Complete Time: 06:36 gs 06/19 05:49 Order name: Labs collected and sent; Complete Time: 06:36 gs 06/19 05:49 Order name: O2 Per Protocol; Complete Time: 06:14 gs 06/19 05:49 Order name: O2 Sat Monitoring; Complete Time: 06:14 gs EC:45 Rate is 93 beats/min. Rhythm is regular, Sinus Rhythm with PACs. QRS [place] is Normal. ME jr8 interval is normal at 176 msec. QRS interval is normal at 94 msec. QT interval is normal at 386 msec. Q waves are Present in leads III, aVF. T waves are Normal. No ST changes noted. Clinical impression: Abnormal EKG without significant change and No evidence of ischemia. Interpreted by me. Reviewed by me. Administered Medications: 06:16 Drug: Albuterol 2.5 mg Route: Inhalation; jd3 06:16 Drug: AtroVENT Aerosol 0.5 mg Route: Inhalation; jd3 06:25 Drug: Lasix 60 mg Route: IVP; Site: left antecubital; ea 10:48 Follow up: Response: No adverse reaction bp Disposition: 06/19/18 07:38 Hospitalization ordered by Leni Youssef for Observation. Preliminary diagnosis are Acute systolic (congestive) heart failure, Acute pulmonary edema. - Bed requested for Telemetry/MedSurg (observation). - Status is Observation. bp - Condition is Stable. - Problem is new. - Symptoms have improved. UTI on Admission? No Addendum: 06/29/2018 06:37 Co-signature as Attending Physician, Junito Starkey MD. g s Signatures: Dispatcher [employer] EDMS Yumiko Cordero Josh, PA PA jr8 Karissa Liu, RN RN Junito Gamboa MD MD gs Davies, Jonathon, PAULA RN Miguelangel Mobley RN RN bp Corrections: (The following items were deleted from the chart) 06/19 09:53 07:38 Hospitalization Ordered by Leni Youssef MD for Observation. Preliminary diagnosis bd is Acute systolic (congestive) heart failure; Acute pulmonary edema. Bed requested for Telemetry/MedSurg (observation). Status is Observation. Condition is Stable. Problem is new. Symptoms have improved. UTI on Admission? No. jr8 10:59 09:53 06/19/2018 07:38 Hospitalization Ordered by Leni Youssef MD for Observation. bp Preliminary diagnosis is Acute systolic (congestive) heart failure; Acute pulmonary edema. Bed requested for Telemetry/MedSurg (observation). Status is Observation. Condition is Stable. Problem is new. Symptoms have improved. UTI on Admission? No. bd
--- NOTE | 2018-06-19 07:39 | ER ---
Nurse's Notes [facility] Name: Christa Ayala Age: 72 yrs Sex: Female : 1945 Arrival Date: 06/19/2018 Time: 05:25 Bed 7 Private MD: Kendrick Stevens Diagnosis: Acute systolic (congestive) heart failure;Acute pulmonary edema Presentation: 06/19 05:36 Presenting complaint: EMS states: "pt reports that she is 'not feeling well.' when jd3 asked what that means she said she was feeling shot of breath and having back and abdominal pain she is on home O2 and her oxygen saturation was good, but she said she still felt short of breath.". Transition of care: patient was not received from another setting of care. Onset of symptoms was June 19, 2018. Risk Assessment: Do you want to hurt yourself or someone else? Patient reports no desire to harm self or others. Initial Sepsis Screen: Does the patient meet any 2 criteria? No. Patient's initial sepsis screen is negative. Does the patient have a suspected source of infection? No. Patient's initial sepsis screen is negative. Care prior to arrival: Glucose check: 228. 05:36 Method Of Arrival: EMS: [facility] jd3 05:36 Acuity: SONYA 3 jd3 Historical: - Allergies: 05:43 Codeine; jd3 05:43 Iodine; jd3 - Home Meds: 05:43 aspirin 81 mg Oral TbEC 1 tab once daily [Active]; atorvastatin 40 mg Oral tab 1 tab jd3 nightly [Active]; Entresto 24-26 mg Oral tab twice a day [Active]; escitalopram oxalate 10 mg Oral tab 1 tab once daily [Active]; glimepiride 1 mg Oral tab 1 tab once daily [Active]; Lasix 40 mg Oral tab 1 tab 2 times per day [Active]; metoprolol tartrate 25 mg Oral tab 1 tab 2 times per day [Active]; pantoprazole 40 mg Oral TbEC 1 tab once daily [Active]; Plavix 75 mg Oral tab 1 tab once daily [Active]; ProAir HFA 90 mcg/actuation inhalation HFAA 1 puff as needed [Active]; Trellegy 100 mg/62.5mg/25mg daily [Active]; - PMHx: 05:43 CHF; Emphysema; enlarged aorta; Diabetes - NIDDM; COPD; Hypertension; Myocardial jd3 infarction; - Immunization history:: Adult Immunizations up to date. - Social history:: Smoking status: Patient/guardian denies using tobacco, the patient reports quitting approximately 4 years ago. - Ebola Screening: : Patient negative for fever greater than or equal to 101.5 degrees Fahrenheit, and additional compatible Ebola Virus Disease symptoms. Screenin:49 Abuse screen: Denies threats or abuse. Nutritional screening: No deficits noted. jd3 Tuberculosis screening: No symptoms or risk factors identified. Fall Risk Ambulatory Aid- Crutches/Cane/Walker (15 pts). Gait- Weak (10 pts.). Mental Status- Oriented to own ability (0 pts). Total [place] Fall Scale indicates Low Risk Score (25-44 pts). Fall prevention measures have been instituted. Side Rails Up X 2 Placed close to Nursing Station Frequent Obs/Assesments occuring. Assessment: 06:15 General: Appears in no apparent distress. uncomfortable, Behavior is calm, cooperative, jd3 appropriate for age. Pain: Complains of pain in back and abdomen Pain currently is 7 out of 10 on a pain scale. Quality of pain is described as aching. Neuro: Level of Consciousness is awake, alert, obeys commands, Oriented to person, place, time, situation, Appropriate for age. Cardiovascular: Heart tones present Capillary refill < 3 seconds Patient's skin is warm and dry. Respiratory: Reports shortness of breath at rest Airway is patent Respiratory effort is even, unlabored, Respiratory pattern is symmetrical, tachypnea Breath sounds with crackles in right posterior lower lobe and left posterior lower lobe. GI: Abdomen is round non-distended, Abd is soft Abdomen is tender to palpation X 4 quads. Patient currently denies constipation, diarrhea, nausea, vomiting. : No signs and/or symptoms were reported regarding the genitourinary system. EENT: No signs and/or symptoms were reported regarding the EENT system. Derm: Skin is intact, Skin is dry, Skin is normal, Skin temperature is warm. Musculoskeletal: Circulation, motion, and sensation intact. Range of motion: intact in all extremities. 07:00 Reassessment: RECD REPORT FROM VIGNESH MITCHELL. 72BF P/W SOB AND ABD PAIN. ALL CURRENT bp ORDERS IN PROCESS, VS STABLE ON MONITOR. PT ON 3LNC. 07:54 Reassessment: ADMIT IN PROCESS, VS STABLE ON MONITOR. bp 10:00 Reassessment: ADMIT COMPLETED, TRANSPORT PENDING. bp 10:46 Reassessment: REPORT TO KARISSA MITCHELL FOR 425. PT ELY ON 3LNC. bp Vital Signs: 05:44 BP 141 / 107; Pulse 92; Resp 24 S; Temp 97.6(O); Pulse Ox 100% on 3 lpm NC; Weight jd3 67.59 kg (R); Height 5 ft. 6 in. (167.64 cm) (R); Pain 7/10; 07:00 BP 152 / 110; Pulse 100; Resp 19; Pulse Ox 100% ; bp 07:55 BP 148 / 101; Pulse 99; Resp 23; Pulse Ox 99% ; bp 09:00 BP 135 / 110; Pulse 99; Resp 23; Pulse Ox 96% ; bp 10:00 BP 129 / 101; Pulse 89; Resp 22; Pulse Ox 100% ; bp 05:44 Body Mass Index 24.05 (67.59 kg, 167.64 cm) jd3 ED Course: 05:25 Patient arrived in ED. ds1 05:36 Rafita Stewart, PAULA is Primary Nurse. jd3 05:40 Triage completed. jd3 05:47 Arm band placed on. jd3 05:51 Patient has correct armband on for positive identification. Bed in low position. Call jd3 light in reach. Side rails up X2. 05:54 Kendrick Stevens MD is Private Physician. ds1 06:12 [facility] Bravo [facility]. jr8 06:12 Junito Starkey MD is Attending Physician. jr8 06:13 Missed attempt(s): 20 gauge in right antecubital area. Bleeding controlled, band aid jd3 applied, catheter tip intact. 06:15 Missed attempt(s): 20 gauge in right antecubital area. Bleeding controlled, band aid jd3 applied, catheter tip intact. 06:20 Inserted saline lock: 20 gauge in left antecubital area, using aseptic technique. Blood jd3 collected. 06:28 X-ray completed. Portable x-ray completed in exam room. Patient tolerated procedure kw well. 06:29 XRAY Chest (1 view) In Process Unspecified. EDMS 07:05 Report given to Miguelangel MITCHELL. jd3 07:37 Leni Youssef MD is Hospitalizing Provider. jr8 08:45 EKG done, by instrument/control technician. reviewed by Wily GIORDANO. at1 10:46 No provider procedures requiring assistance completed. Patient admitted, IV remains in bp place. Administered Medications: 06:16 Drug: Albuterol 2.5 mg Route: Inhalation; jd3 06:16 Drug: AtroVENT Aerosol 0.5 mg Route: Inhalation; jd3 06:25 Drug: Lasix 60 mg Route: IVP; Site: left antecubital; ea 10:48 Follow up: Response: No adverse reaction bp Outcome: 07:38 Decision to Hospitalize by Provider. jr8 10:47 Admitted to Med/surg accompanied by tech, family with patient, via wheelchair, room bp 425, with chart, Report called to KARISSA MITCHELL 10:47 Condition: stable 10:47 Instructed on the need for admit. 10:59 Patient left the ED. bp Signatures: Dispatcher [facility] ED[facility] Cynthia Beyer ds1 Tarah Buckley Josh, PA PA jr8 Tasha Moralez, lead esthetician EKG Tat1 Karissa Liu RN RN Rafita Neal RN RN jd3 Peltier, Brian, RN RN bp Corrections: (The following items were deleted from the chart) 05:40 05:36 Care prior to arrival: None. jd3 jd3 05:48 05:44 BP 141 / 107; Pulse 90bpm; Resp 24bpm; Spontaneous; Pulse Ox 93% 3 lpm Nasal jd3 Cannula; Temp 97.6F Oral; 67.59 kg Reported; Height 5 ft. 6 in. Reported; BMI: 24.0; Pain 7/10; jd3
[2018-06-19 08:09] LABS: Platelet Estimate ADEQ; Platelets, Giant RARE
[2018-06-19 08:10] LABS: Anisocytosis 2+; Blood Morphology Comment NOTED (NOT SEEN); Burr Cells 2+; Ovalocytes 1+
--- NOTE | 2018-06-19 09:32 | RAD REPORT ---
EXAM DESCRIPTION: Anyg Single View06/19/2018 6:31 am CLINICAL HISTORY: Shortness of breath COMPARISON: June 06, 2018 FINDINGS: The lungs appear clear of acute infiltrate. The heart is markedly enlarged. Descending th oracic/thoracoabdominal aortic aneurysm without obvious change IMPRESSION: No acute abnormalities displayed
--- NOTE | 2018-06-19 15:14 | P.HP ---
Certification for Inpatient Patient admitted to: Observation With expected LOS: <2 Midnights Practitioner: I am a practitioner with admitting privileges, knowledge of patient current condition, hospital course, and medical plan of care. Services: Services provided to patient in accordance with Admission requirements found in Title 42 Section 412.3 of the Code of Federal Regulations Patient History Date of Service: 06/19/18 Primary Care Provider: Dr. Stevens Reason for admission: Shortness of breath History of Present Illness: This is a 72-year-old female with multiple medical problems including with CHF, CAD, COPD, thoracic aneurysm, CKD who presented to the emergency room with shortness of breath. Per patient, she has been progressively getting short of breath over the past couple of days. Her regular medications have not been helping and therefore she called the ambulance to be brought to the ER. She denies any fevers, chills, chest pain, headache or vision changes, GI or complaints. In the ER, patient was found to be hypoxic on room air and tachypneic. Laboratory was remarkable for elevated BNP. She was provided supplemental oxygen, Lasix via IV. Her symptoms did improve slightly. I was called to admit patient for observation. At the time of my exam, patient was alert oriented x3, in mild respiratory distress, satting well on 2 L oxygen and hemodynamically stable. Allergies iodine Allergy (Mild, Verified 06/03/18 18:17) Itching/Hives/Rash codeine Adverse Reaction (Intermediate, Verified 06/03/18 18:17) Hives/Rash Home Medications: Aspirin Chewable [Aspirin Chewable*] 81 mg PO DAILY 04/06/18 Atorvastatin Calcium [Lipitor] 40 mg PO BEDTIME 04/06/18 Clopidogrel Bisulfate [Plavix] 75 mg PO DAILY 04/06/18 Fluticasone/Umeclidin/Vilanter [Trelegy Ellipta 100-62.5-25] 1 puff IH DAILY 06/20 Furosemide [Lasix] 40 mg PO BIDL 04/06/18 Glimepiride 1 mg PO DAILY 04/06/18 Pantoprazole Sodium 40 mg PO DAILY 04/06/18 Sacubitril/Valsartan [Entresto 24 mg-26 mg Tablet] 1 tab PO BID 04/06/18 Escitalopram Oxalate 10 mg PO DAILY 06/03/18 Metoprolol Tartrate 12.5 mg PO BID 06/03/18 Proair Hfa 90mcg/Actuation 1 inh IH PRN PRN 06/03/18 - Past Medical/Surgical History Has patient received pneumonia vaccine in the past: Yes Diabetic: Yes -: HTN -: Hyperlipidemia -: Diabetes mellitus type 2 [id number] -: COPD, oxygen-dependent -: CAD with prior stent -: Systolic congestive heart failure, ejection fraction 30% -: Thoracic aortic aneurysm -: Chronic kidney disease -: Anemia of chronic disease -: GERD -: Former tobacco use -: Hiatal hernia repair -: Aortic aneurysm -: 2 cardiac stents (2010) Psychosocial/ Personal History: Patient is - Family History Father -: Heart disease Mother -: Diabetes Sister -: Diabetes - Social History Smoking Status: Former smoker Alcohol use: No CD- Drugs: No Caffeine use: Yes Place of Residence: Home Review of Systems 10-point ROS is otherwise unremarkable Physical Examination - Vital Signs Temperature: 97.9 F Blood Pressure: 149/104 Pulse: 92 Respirations: 16 - Physical Exam General: Alert, Oriented x3, Mild distress HEENT: Atraumatic, PERRLA, Mucous membr. moist/pink, EOMI, Sclerae nonicteric Neck: Supple, 2+ carotid pulse no bruit, No LAD, Without JVD or thyroid abnormality Respiratory: Diminished, Crackles/rales, Expiratory wheezes Cardiovascular: Regular rate/rhythm, Normal S1 S2 Gastrointestinal: Normal bowel sounds, No tenderness Musculoskeletal: No tenderness Integumentary: No rashes Neurological: Normal gait, Normal speech, Normal strength at 5/5 x4 extr, Normal tone, Normal affect - Studies Laboratory Data (last 24 hrs) 06/19/18 06:25: PT 13.5 H, INR 1.15 06/19/18 06:25: WBC 8.3, Hgb 10.6 L, Hct 32.3 L, Plt Count 190 06/19/18 06:25: Sodium 143, Potassium 4.6, BUN 39 H, Creatinine 1.95 H, Glucose 228 H, Magnesium 2.2, Total Bilirubin 0.5, AST 19, ALT 38, Alkaline Phosphatase 112 Assessment and Plan - Problems (Diagnosis) (1) CHF exacerbation Onset Date: 12/09/17 Current Visit: No Status: Acute (2) Systolic congestive heart failure Onset Date: 02/13/18 Current Visit: No Status: Acute (3) Thoracic aneurysm without mention of rupture Onset Date: 02/13/18 Current Visit: No Status: Acute Qualifiers: Presence of rupture: without rupture Qualified Code(s): I71.2 - Thoracic aortic aneurysm, without rupture (4) CAD (coronary artery disease) Onset Date: 04/25/17 Current Visit: No Status: Chronic Qualifiers: Coronary Disease-Associated Artery/Lesion type: [place] artery [place] vs. transplanted heart: [place] heart Associated angina: without angina Qualified Code(s): I25.10 - Atherosclerotic heart disease of [place] coronary artery without angina pectoris (5) COPD (chronic obstructive pulmonary disease) Onset Date: 10/03/17 Current Visit: No Status: Chronic Qualifiers: (6) Chronic renal disease, stage III Onset Date: 02/13/18 Current Visit: No Status: Chronic (7) Diabetes mellitus type 2 Onset Date: 04/25/17 Current Visit: No Status: Chronic (8) Hyperlipidemia Onset Date: 10/03/17 Current Visit: No Status: Chronic Qualifiers: Hyperlipidemia type: mixed hyperlipidemia Qualified Code(s): E78.2 - Mixed hyperlipidemia (9) Hypertensive disorder, systemic arterial Onset Date: 04/25/17 Current Visit: No Status: Chronic (10) Acute and chronic respiratory failure Onset Date: 02/13/18 Current Visit: No Status: Resolved Qualifiers: Respiratory failure complication: hypoxia and hypercapnia Qualified Code(s) : J96.21 - Acute and chronic respiratory failure with hypoxia; J96.22 - Acute and chronic respiratory failure with hypercapnia - Plan Admit the patient to the floor with tele for observation. Start IV Lasix, breathing treatments, supplemental oxygen as needed. Repeat chest x-ray tomorrow a.m. Restart home medications as tolerated DVT prophylaxis: Plavix/aspirin, home medications GI prophylaxis: Protonix, home medication Diet: 1800 diabetic Disposition: Admit to floor for observation, pending symptomatic improvement. Dr. Stevens returns tomorrow to see patients and Will sign out this patient to him. - Advance Directives Does patient have a Living Will: No Does patient have a Durable POA for Healthcare: No Time Spent Managing Pts Care (In Minutes): 55
[2018-06-19 15:19] LABS: Urine Appearance CLEAR; Urine Bilirubin NEGATIVE (NEG); Urine Blood NEGATIVE (NEG); Urine Color YELLOW; Urine Glucose NEGATIVE (NEG); Urine Protein TRACE (NEG); Urine Urobilinogen 0.2 mg/dL (0.2-1.0); Urine pH 5.5 (5.0-7.0)
[2018-06-19 15:26] LABS: Urine Microscopic Reflex ORDER UMIC
[2018-06-19 15:54] LABS: Urine Bacteria <20 /HPF (<20); Urine Culture Reflex Order REFLEXED; Urine RBC <5 /HPF (NONE SEEN); Urine Yeast with Hyphae PRESENT
[2018-06-19] MEDS: INSULIN -REGULAR HUMAN 50 UNIT/0.5 ML ML SQ SCH ×2 (16:30→21:35)
[2018-06-19] MEDS: ALBUTEROL 2.5 MG/3 ML NEB SOL NEB SCH ×2 (16:45→20:15)
[2018-06-19] MEDS: IPRATROPIUM BROM 0.5MG/2.5ML NEB SCH ×2 (16:45→20:15)
[2018-06-19] MEDS: ATORVASTATIN 40 MG TAB PO SCH (21:34)
[2018-06-19] MEDS: METOPROLOL TAR 25 MG TAB PO SCH (21:34)
[2018-06-19] MEDS: SACUBITRIL/VALSARTAN 24/26 MG TAB PO SCH (21:34)
[2018-06-20] MEDS: ALBUTEROL 2.5 MG/3 ML NEB SOL NEB SCH ×6 (03:15→20:16)
[2018-06-20] MEDS: IPRATROPIUM BROM 0.5MG/2.5ML NEB SCH ×6 (03:15→20:16)
[2018-06-20 06:21] LABS: Absolute Lymphocytes (CBC) 0.8 K/uL (0.7-4.9); Absolute Monocytes 0.3 K/uL (0.1-1.3); Absolute Neutrophil 5.2 K/uL (1.8-8.0); Basophils % 0.3 % (0-1.3); Eosinophils % 1.2 % (0-4.4); Hematocrit 30.7 % (36.0-45.0); Lymphocytes % 12.3 % (15.3-44.8); MPV 9.6 fL (7.6-11.3); Monocytes % 4.5 % (3.3-12.3); RBC Red Blood Cell Count 3.21 M/uL (3.86-4.86)
[2018-06-20 06:34] LABS: Albumin 3.3 g/dL (3.4-5.0); Bilirubin Total 0.7 mg/dL (0.2-1.0); Phosphorus 3.8 mg/dL (2.5-4.9); Potassium 3.9 mmol/L (3.5-5.1); Protein, Total 7.2 g/dL (6.4-8.2)
[2018-06-20] MEDS: INSULIN -REGULAR HUMAN 50 UNIT/0.5 ML ML SQ SCH ×4 (07:30→21:00)
[2018-06-20] MEDS: PANTOPRAZOLE 40MG TABLET PO SCH (08:22)
[2018-06-20] MEDS: ESCITALOPRAM 20 MG TAB PO SCH (08:22)
[2018-06-20] MEDS: METOPROLOL TAR 25 MG TAB PO SCH ×2 (08:22→20:06)
[2018-06-20] MEDS: ASPIRIN 81 MG CHEWABLE TABLET PO SCH (08:22)
[2018-06-20] MEDS: CLOPIDOGREL 75 MG TABLET PO SCH (08:22)
[2018-06-20] MEDS: SACUBITRIL/VALSARTAN 24/26 MG TAB PO SCH ×2 (08:22→20:06)
--- NOTE | 2018-06-20 08:49 | RAD REPORT ---
EXAM DESCRIPTION: RAD - Chest Pa And Lat (2 Views) - 06/20/2018 8:42 am CLINICAL HISTORY: SOB Chest pain. COMPARISON: Chest Single View dated 06/19/2018; Chest Single View dated 06/06/2018; Chest Single View d ated 06/03/2018; Chest Single View dated 04/07/2018 FINDINGS: Mild to moderate interstitial pulmonary edema is seen with small bilateral pleural effusio ns. The heart is prominent in size with a tortuous thoracic aorta. Hiatal hernia is likely present. IMPRESSION: Mild to moderate CHF suspected.
[2018-06-20] MEDS ORDERED: FUROSEMIDE 40 MG/4 ML VIAL IV ONE (11:23)
[2018-06-20] MEDS: FUROSEMIDE 40 MG/4 ML VIAL IV SCH ×2 (12:05→23:23)
[2018-06-20] MEDS: ACETAMINOPHEN 500 MG TAB PO PRN (17:22)
[2018-06-20] MEDS: ATORVASTATIN 40 MG TAB PO SCH (20:06)
[2018-06-20] MEDS: TEMAZEPAM 15 MG CAP PO PRN (23:47)
[2018-06-21] MEDS: ALBUTEROL 2.5 MG/3 ML NEB SOL NEB SCH ×6 (04:00→20:00)
[2018-06-21] MEDS: IPRATROPIUM BROM 0.5MG/2.5ML NEB SCH ×6 (04:00→20:00)
[2018-06-21] MEDS: INSULIN -REGULAR HUMAN 50 UNIT/0.5 ML ML SQ SCH ×4 (07:30→21:00)
--- NOTE | 2018-06-21 08:22 | ECHO ---
HEIGHT: 5 ft 7 in WEIGHT: 148 lb 12.8 oz DATE OF STUDY: 06/20/[address]: Kendrick Stevens MD 2-DIMENSIONAL: YES M.MODE: YES DOPPLER: YES COLOR FLOW: YES TDS: NO PORTABLE: NO DEFINITY: NO BUBBLE STUDY: NO DIAGNOSIS: PULMONARY EDEMA, CONGESTIVE HEART FAILURE CARDIAC HISTORY: CATHERIZATION: YES SURGERY: NO PROSTHETIC VALVE: NO PACEMAKER: NO MEASUREMENTS (cm) DIASTOLIC (NORMALS) SYSTOLIC (NORMALS) IVSd 1.2 (0.6-1.2) LA Diam 4.1 (1.9-4.0) LVEF 22% LVIDd 5.6 (3.5-5.7) LVIDs 5.0 (2.0-3.5) %FS 10% LVPWd 1.4 (0.6-1.2) Ao Diam 3.4 (2.0-3.7) 2 DIMENSIONAL ASSESSMENT: RIGHT ATRIUM: NORMAL LEFT ATRIUM: DILATED RIGHT VENTRICLE: NORMAL LEFT VENTRICLE: NORMAL SIZE TRICUSPID VALVE: NORMAL MITRAL VALVE: NORMAL PULMONIC VALVE: NORMAL AORTIC VALVE: SCLEROSIS PERICARDIAL EFFUSION: NONE AORTIC ROOT: NORMAL LEFT VENTRICULAR WALL MOTION: SEVERE GLOBAL HYPOKINESIS. DOPPLER/COLOR FLOW: MILD TRICUSPID REGURGITATION MILD PULMONARY HYPERTENSION. COMMENTS: AORTIC SCLEROSIS. SEVERE GLOBAL HYPOKINESIS EJECTION FRACTION 22%. MILD PULMONARY HYPERTENSION RIGHT VENTRICULAR SYSTOLIC PRESSURE 40mmHg. LEFT ATRIAL ENLARGEMENT. TECHNOLOGIST: GUILLE CHOUDHURY
[2018-06-21] MEDS: ESCITALOPRAM 20 MG TAB PO SCH (09:00)
[2018-06-21] MEDS: ASPIRIN 81 MG CHEWABLE TABLET PO SCH (09:00)
[2018-06-21] MEDS: SACUBITRIL/VALSARTAN 24/26 MG TAB PO SCH ×2 (09:00→21:50)
[2018-06-21] MEDS: PANTOPRAZOLE 40MG TABLET PO SCH (09:00)
[2018-06-21] MEDS: METOPROLOL TAR 25 MG TAB PO SCH ×2 (09:00→21:50)
[2018-06-21] MEDS: FUROSEMIDE 40 MG/4 ML VIAL IV SCH ×2 (09:00→16:14)
[2018-06-21] MEDS: CLOPIDOGREL 75 MG TABLET PO SCH (09:00)
--- NOTE | 2018-06-21 13:50 | CON ---
History Of Present Illness: Ms. Ayala is 72. She came to the hospital with a vague complaint of just feeling bad. She is a patient who has a known cardiomyopathy, EF in the 20% range. She has bee n on appropriate medications to treat that, but continues to deteriorate, nonetheless. She has had a cardiac catheterization in the past, it was 6 years ago. She had minimal CAD. There is a 70% lesio n and a very small circumflex lesion that was never subjected to any kind of intervention. Since the n, she has had nuclear stress testing that does not show any stress-induced ischemia, and her EF is d own. So, we considered that a nonischemic cardiomyopathy. Her outpatient medication regimen has bee n Trelegy, Protonix, glimepiride, Entresto , Lasix 40 b.i.d., Plavix, atorvastatin, aspirin, met oprolol, escitalopram, and ProAir. She does not smoke now, she did in the remote past. She is aller gic to iodine and codeine. She also seems to have at least a mild amount of dementia. Physical Examination: General: She is 5 feet 7 inches, 148 pounds. Sleepy, arousable, somewhat slow to respond. Seems to be a little bit confused. Laboratory Data: Troponins are normal. N-terminal proBNP is over 62,000. Her creatinine is 1.84. GFR is 33. Blood sugars are in the 228 to 150 range. A chest x-ray reveals enlarged heart, mild int erstitial edema. Her lungs do not reveal pulmonary crackles. There is trace pedal edema. Impression: The patient's heart failure is worsening. She has a very low cardiac output. I think s he should be considered for a possible defibrillator. In fact, I am not quite sure why it was not do ne in the past. It is possible that Ms. Ayala or family members refused it, but a biventricular p acing defibrillator could be an option that might help her heart. I think for right now we need to g ruel her diuresis and consult with EP to see if they would be interested in putting in a BiV pacing defibrilla torGus RAMESH/CHRISTY Voice ID: [id number] Report ID: [id number]
[2018-06-21] MEDS ORDERED: D50W 25 GM/50 ML SYRINGE IV PRN (15:51)
[2018-06-21] MEDS ORDERED: GLUCAGON 1 MG/VIAL IM PRN (15:51)
--- NOTE | 2018-06-21 18:29 | PN ---
The patient continues to be dyspneic, especially with any exertion. A chest x-ray confirmed the pres ence persistent of her lower pulmonary edema, CHF. Her Lasix treatment was increased. She has been on 40 b.i.d. at home, when given in the ER, felt better for a while. However, since then, these symp toms have recurred. An echo was ordered and cardiac consultation was obtained. HR/MODL Voice ID: [id number] Report ID: [id number]
--- NOTE | 2018-06-21 20:49 | PN ---
Date of Progress Note: 06/21/2018 The patient still has the same symptoms, dyspnea, general malaise, and she was seen by Cardiology. P ossibility of a pacemaker was discussed with the patient and I will discuss it further with her famil y. In the meantime, she will be started back on her Lasix p.o. HR/MODL Voice ID: [id number] Report ID: [id number]
[2018-06-21] MEDS: ATORVASTATIN 40 MG TAB PO SCH (21:50)
[2018-06-21] MEDS: TEMAZEPAM 15 MG CAP PO PRN (22:48)
[2018-06-22] MEDS: IPRATROPIUM BROM 0.5MG/2.5ML NEB SCH ×6 (04:00→20:00)
[2018-06-22] MEDS: ALBUTEROL 2.5 MG/3 ML NEB SOL NEB SCH ×6 (04:00→20:00)
[2018-06-22 04:35] LABS: Albumin 3.2 g/dL (3.4-5.0); Bilirubin Total 0.7 mg/dL (0.2-1.0); Potassium 4.2 mmol/L (3.5-5.1); Protein, Total 6.7 g/dL (6.4-8.2)
[2018-06-22] MEDS: INSULIN -REGULAR HUMAN 50 UNIT/0.5 ML ML SQ SCH ×4 (07:30→21:00)
[2018-06-22] MEDS: ESCITALOPRAM 20 MG TAB PO SCH (09:19)
[2018-06-22] MEDS: PANTOPRAZOLE 40MG TABLET PO SCH (09:20)
[2018-06-22] MEDS: FUROSEMIDE 40 MG TABLET PO SCH ×2 (09:20→17:00)
[2018-06-22] MEDS: METOPROLOL TAR 25 MG TAB PO SCH ×2 (09:20→20:51)
[2018-06-22] MEDS: ASPIRIN 81 MG CHEWABLE TABLET PO SCH (09:20)
[2018-06-22] MEDS: CLOPIDOGREL 75 MG TABLET PO SCH (09:21)
[2018-06-22] MEDS: SACUBITRIL/VALSARTAN 24/26 MG TAB PO SCH ×2 (09:23→20:52)
[2018-06-22] MEDS: ACETAMINOPHEN 500 MG TAB PO PRN (12:11)
--- NOTE | 2018-06-22 14:27 | PN ---
Date of Progress Note: 06/22/2018 Subjective: Ms. Ayala has been followed by Dr. Stevens and Dr. Foster for congestive heart failur e. She is on all the appropriate medications for her CHF, but continues to be readmitted to the hosp ital because of CHF exacerbation. She has severe cardiomyopathy, acute on chronic congestive heart f ailure that is systolic. Dr. Foster had suggested an EP referral with a possible AICD. This has bee n discussed in the past with Ms. Ayala. I brought the issue back up again today. She wants to th ink about it and discuss it further with her family. She is improving today with more diuresis and l ess shortness of breath. NB/MODL Voice ID: [id number] Report ID: [id number]
[2018-06-22] MEDS: ATORVASTATIN 40 MG TAB PO SCH (20:51)
[2018-06-22] MEDS: TEMAZEPAM 15 MG CAP PO PRN (22:15)
[2018-06-23] MEDS: ALBUTEROL 2.5 MG/3 ML NEB SOL NEB SCH ×7 (03:58→20:52)
[2018-06-23] MEDS: IPRATROPIUM BROM 0.5MG/2.5ML NEB SCH ×7 (03:58→20:52)
[2018-06-23] MEDS: INSULIN -REGULAR HUMAN 50 UNIT/0.5 ML ML SQ SCH ×4 (07:30→21:00)
[2018-06-23 07:44] LABS: Urine Appearance CLEAR; Urine Bilirubin NEGATIVE (NEG); Urine Blood NEGATIVE (NEG); Urine Color YELLOW; Urine Glucose NEGATIVE (NEG); Urine Protein 1+ (NEG); Urine Specific Gravity 1.015 (1.005-1.030); Urine Urobilinogen 0.2 mg/dL (0.2-1.0)
[2018-06-23 08:02] LABS: Urine Bacteria 20-50 /HPF (<20); Urine Culture Reflex Order REFLEXED; Urine RBC NONE SEEN /HPF (NONE SEEN); Urine Yeast MANY (NONE SEEN)
[2018-06-23] MEDS: ASPIRIN 81 MG CHEWABLE TABLET PO SCH (10:11)
[2018-06-23] MEDS: ESCITALOPRAM 20 MG TAB PO SCH (10:11)
[2018-06-23] MEDS: METOPROLOL TAR 25 MG TAB PO SCH ×2 (10:12→22:11)
[2018-06-23] MEDS: PANTOPRAZOLE 40MG TABLET PO SCH (10:12)
[2018-06-23] MEDS: FUROSEMIDE 40 MG TABLET PO SCH ×2 (10:12→16:59)
[2018-06-23] MEDS: CLOPIDOGREL 75 MG TABLET PO SCH (10:12)
[2018-06-23] MEDS: SACUBITRIL/VALSARTAN 24/26 MG TAB PO SCH ×2 (10:15→22:11)
--- NOTE | 2018-06-23 11:22 | PN ---
The patient has had one significant episode during the day, where she felt really sleepy and irritabl e; other than that, basically the same. She fell asleep when she awoke. I had a conversation about sending her to [facility] for evaluation of the pacemaker, and after talking to her family and her, at t his time, she consented to doing that. Her only other problem is some urinary retention, which is no t marked, but the patient is symptomatic. A straight catheter revealed 300 cc output and she has fel t like she was full. However, she was started back on her Lasix as well. In view of this decision, a discussion we had with the director of academic as far as referring her to [facility] for her procedure. HR/MODL Voice ID: [id number] Report ID: [id number]
[2018-06-23] MEDS: LORAZEPAM 0.5 MG TABLET PO PRN (16:59)
[2018-06-23] MEDS: ACETAMINOPHEN 500 MG TAB PO PRN (16:59)
[2018-06-23] MEDS: TEMAZEPAM 15 MG CAP PO PRN (22:12)
[2018-06-23] MEDS: ATORVASTATIN 40 MG TAB PO SCH (22:12)
[2018-06-24] MEDS: ALBUTEROL 2.5 MG/3 ML NEB SOL NEB SCH ×7 (00:05→23:30)
[2018-06-24] MEDS: IPRATROPIUM BROM 0.5MG/2.5ML NEB SCH ×7 (00:05→23:30)
[2018-06-24] MEDS: INSULIN -REGULAR HUMAN 50 UNIT/0.5 ML ML SQ SCH ×4 (07:30→21:00)
[2018-06-24] MEDS: PANTOPRAZOLE 40MG TABLET PO SCH (09:03)
[2018-06-24] MEDS: METOPROLOL TAR 25 MG TAB PO SCH ×2 (09:03→21:18)
[2018-06-24] MEDS: ESCITALOPRAM 20 MG TAB PO SCH (09:04)
[2018-06-24] MEDS: FUROSEMIDE 40 MG TABLET PO SCH ×2 (09:04→16:17)
[2018-06-24] MEDS: SACUBITRIL/VALSARTAN 24/26 MG TAB PO SCH ×2 (09:04→21:18)
[2018-06-24] MEDS: ASPIRIN 81 MG CHEWABLE TABLET PO SCH (09:04)
[2018-06-24] MEDS: CLOPIDOGREL 75 MG TABLET PO SCH (09:05)
--- NOTE | 2018-06-24 09:34 | PN ---
Mrs. Ayala remains lethargic. She hardly gets out of bed, refuses to stand up with physical thera pist. The question is whether this is something that could be improved with a defibrillator. She grier s a wide QRS, and EF in the 20s, or would be considered optimal medical therapy. We are not giving a ldosterone antagonist because of renal dysfunction. All the other items we have to treat her heart f ailure at present, so at age 72, I am thinking her lethargy is probably a low cardiac output syndrome , and might be improved with a defibrillator. I will talk with Dr. Benavides about this, and see if he would be willing to insert a defibrillator in the hopes that would give her more energy. DOMITILA/CHRISTY Voice ID: [id number] Report ID: [id number]
[2018-06-24] MEDS: ACETAMINOPHEN 500 MG TAB PO PRN (10:41)
[2018-06-24] MEDS: ONDANSETRON 4 MG/2 ML VIAL IV PRN (11:11)
--- NOTE | 2018-06-24 14:10 | PN ---
The patient continues to have similar symptomatology, was seen by Cardiology. She now indicated that she would consent to going to [place] for a defibrillator. Discussion with box office manager felt she sh ould be maintained here over the weekend and contact will be made with the [facility] in [place] on Tuesday f or probable transfer. HR/MODL Voice ID: [id number] Report ID: [id number]
[2018-06-24] MEDS: LORAZEPAM 0.5 MG TABLET PO PRN (14:20)
--- NOTE | 2018-06-24 18:40 | PN ---
Date of Progress Note: 06/24/2018 Subjective: The patient's status basically declined as far as her activity level and possibly her me ntal status, whether this is a combination of depression and anxiety or decreased cardiac output. It is hard to say, but I think it is probably a combination of both. In any event, disposition was dis cussed with her family and we will await to see if the possibility of defibrillator would be indicate d by Tuesday. HR/MODL Voice ID: [id number] Report ID: [id number]
[2018-06-24] MEDS: ATORVASTATIN 40 MG TAB PO SCH (21:18)
[2018-06-24] MEDS: TEMAZEPAM 15 MG CAP PO PRN (22:33)
[2018-06-25] MEDS: IPRATROPIUM BROM 0.5MG/2.5ML NEB SCH ×5 (04:00→20:02)
[2018-06-25] MEDS: ALBUTEROL 2.5 MG/3 ML NEB SOL NEB SCH ×5 (04:00→20:02)
[2018-06-25] MEDS: INSULIN -REGULAR HUMAN 50 UNIT/0.5 ML ML SQ SCH ×4 (07:30→21:00)
[2018-06-25] MEDS: ASPIRIN 81 MG CHEWABLE TABLET PO SCH (09:00)
[2018-06-25] MEDS: METOPROLOL TAR 25 MG TAB PO SCH ×2 (09:01→20:32)
[2018-06-25] MEDS: ESCITALOPRAM 20 MG TAB PO SCH (09:01)
[2018-06-25] MEDS: FUROSEMIDE 40 MG TABLET PO SCH ×2 (09:01→16:28)
[2018-06-25] MEDS: SACUBITRIL/VALSARTAN 24/26 MG TAB PO SCH ×2 (09:01→20:32)
[2018-06-25] MEDS: CLOPIDOGREL 75 MG TABLET PO SCH (09:01)
[2018-06-25] MEDS: PANTOPRAZOLE 40MG TABLET PO SCH (09:02)
--- NOTE | 2018-06-25 15:54 | PN ---
Date of Progress Note: 06/25/2018 The patient actually feels and seems more alert today. There is no significant change in her clinica l scenario. I will bring up to date on her blood work and x-ray, cardiogram in case Dr. Benavides feels she could be transferred there and/or is seen in the office next week. HR/MODL Voice ID: [id number] Report ID: [id number]
[2018-06-25] MEDS: ATORVASTATIN 40 MG TAB PO SCH (20:32)
[2018-06-25] MEDS: TEMAZEPAM 15 MG CAP PO PRN (22:15)
[2018-06-26] MEDS: ALBUTEROL 2.5 MG/3 ML NEB SOL NEB SCH ×6 (00:15→19:49)
[2018-06-26] MEDS: IPRATROPIUM BROM 0.5MG/2.5ML NEB SCH ×6 (00:15→19:49)
[2018-06-26 04:46] LABS: Absolute Lymphocytes (CBC) 0.6 K/uL (0.7-4.9); Absolute Monocytes 0.4 K/uL (0.1-1.3); Absolute Neutrophil 3.5 K/uL (1.8-8.0); Basophils % 0.2 % (0-1.3); Eosinophils % 1.8 % (0-4.4); Lymphocytes % 13.8 % (15.3-44.8); MPV 8.2 fL (7.6-11.3); Monocytes % 8.1 % (3.3-12.3); RBC Red Blood Cell Count 3.28 M/uL (3.86-4.86)
[2018-06-26 05:15] LABS: Albumin 3.2 g/dL (3.4-5.0); Bilirubin Total 0.8 mg/dL (0.2-1.0); Potassium 4.5 mmol/L (3.5-5.1); Protein, Total 6.8 g/dL (6.4-8.2)
[2018-06-26 06:42] LABS: Magnesium 2.5 mg/dL (1.8-2.4)
[2018-06-26] MEDS: INSULIN -REGULAR HUMAN 50 UNIT/0.5 ML ML SQ SCH ×4 (07:24→21:00)
--- NOTE | 2018-06-26 08:14 | RAD REPORT ---
EXAM DESCRIPTION: RAD - Chest Pa And Lat (2 Views) - 06/26/2018 7:58 am CLINICAL HISTORY: CHF COMPARISON: June 20 TECHNIQUE: PA and lateral views of the chest were obtained. FINDINGS: The lungs are fibrotic as a baseline. Pleural and parenchymal opacification are present in the right lung base not clearly different from comparison. Heart size is prominent. Widened medias tinum is present distorted by patient rotation. Prominent aortic tortuosity noted. No pneumothorax. N o acute bony finding noted. No aortic abnormality. IMPRESSION: Chronic pleural and parenchymal changes are present not clearly different from June 20 imaging. Patient has baseline fibrosis. Prominent widening of the mediastinum due to patient rotation. Mediastinal assessment is limited. Aor ta is quite tortuous.
[2018-06-26] MEDS: ESCITALOPRAM 20 MG TAB PO SCH (08:44)
[2018-06-26] MEDS: CLOPIDOGREL 75 MG TABLET PO SCH (08:44)
[2018-06-26] MEDS: SACUBITRIL/VALSARTAN 24/26 MG TAB PO SCH ×2 (08:44→22:02)
[2018-06-26] MEDS: ASPIRIN 81 MG CHEWABLE TABLET PO SCH (08:44)
[2018-06-26] MEDS: PANTOPRAZOLE 40MG TABLET PO SCH (08:45)
[2018-06-26] MEDS: METOPROLOL TAR 25 MG TAB PO SCH ×2 (08:45→22:02)
[2018-06-26] MEDS: FUROSEMIDE 40 MG TABLET PO SCH (08:46)
[2018-06-26] MEDS: ONDANSETRON 4 MG/2 ML VIAL IV PRN ×2 (13:49→21:49)
[2018-06-26] MEDS: NA CHLORIDE 0.9% 1,000 ML IV SCH (15:59)
--- NOTE | 2018-06-26 16:33 | RAD REPORT ---
EXAM DESCRIPTION: CT - Abdomen Pelvis Wo Contrast - 06/26/2018 3:42 pm CLINICAL HISTORY: Abdominal pain. Anorexia; Nausea COMPARISON: Thorax Wo Con dated 02/08/2018; Renal Ultrasound-Complete dated 04/10/2018 TECHNIQUE: CT imaging of the abdomen and pelvis was performed without contrast. Solid organ, bowel a nd vascular assessment is limited due to lack of IV and oral contrast. All CT scans are performed using dose optimization technique as appropriate and may include automated exposure control or mA/KV adjustment according to patient size. FINDINGS: A small loculated right pleural effusion is noted. A large aneurysm of the descending thoracic aorta is present measuring 8.7 x 6.8 cm, previously 7.3 x 5.8 cm. There is mixed hyperdense crescentic component along the right aspect of the aneurysm, which is also enlarged since the prior study.Full assessment is limited due to lack of IV contrast materia l. Postsurgical changes are present involving the abdominal aorta. Mild ascites has developed since the comparative study. Cholelithiasis suspected. No gross acute doug d organ abnormality within the above detailed limitations. No bowel obstruction or free air. Heavy at herosclerosis. The osseous structures are within normal limits. IMPRESSION: Significant enlargement of the thoracic aortic aneurysm since comparative study as detai led. Full detailed assessment of the aneurysm is limited due to lack of IV contrast material. Mild ascites has developed since prior study. Small loculated right pleural effusion. Cholelithiasis. Findings were discussed with Dr. Stevens at 4:30 p.m. 06/26/2018 by telephone.
--- NOTE | 2018-06-26 17:29 | EKG ---
Test Date: 2018-06-26 Test Time: 09:35:54 Multifold Operator: HAMMAD MEASUREMENT RESULTS: Intervals: Rate: 92 IL: 156 QRSD: 98 QT: 388 QTc: 479 [place]: P: 35 IL: 156 QRS: -12 T: 115 INTERPRETIVE STATEMENTS: Normal sinus rhythm Inferior infarct, age undetermined Abnormal ECG Compared to ECG 06/19/2018 06:03:35 Myocardial infarct finding now present T-wave abnormality no longer present Electronically Signed On 06-26-18 17:27:40 CDT by John Foster
--- NOTE | 2018-06-26 19:07 | PN ---
Date of Progress Note: 06/26/2018 The patient is not having one of her better days today. She is quite lethargic, responds to question ing, and more anorectic creatinine now 2.2. She is quite dry, although she is urinating and possibly secondary to the Lasix. We will therefore give her some normal saline and a TKO level and discuss h er case further with Dr. Foster. In view of the persistent anorexia, we will do a CT scan of the abd omen and pelvis without contrast. On the table is still the issue of whether or not she would requir e the defibrillator placed in this position. HR/MODL Voice ID: [id number] Report ID: [id number]
[2018-06-26] MEDS: ATORVASTATIN 40 MG TAB PO SCH (22:02)
[2018-06-27] MEDS: ALBUTEROL 2.5 MG/3 ML NEB SOL NEB SCH ×7 (04:00→23:50)
[2018-06-27] MEDS: IPRATROPIUM BROM 0.5MG/2.5ML NEB SCH ×7 (04:00→23:50)
[2018-06-27] MEDS: INSULIN -REGULAR HUMAN 50 UNIT/0.5 ML ML SQ SCH ×4 (07:30→21:00)
[2018-06-27] MEDS: FUROSEMIDE 40 MG TABLET PO SCH ×2 (09:00→17:32)
[2018-06-27] MEDS: METOPROLOL TAR 25 MG TAB PO SCH ×2 (09:25→21:29)
[2018-06-27] MEDS: ASPIRIN 81 MG CHEWABLE TABLET PO SCH (09:25)
[2018-06-27] MEDS: SACUBITRIL/VALSARTAN 24/26 MG TAB PO SCH ×2 (09:25→21:29)
[2018-06-27] MEDS: CLOPIDOGREL 75 MG TABLET PO SCH (09:26)
[2018-06-27] MEDS: PANTOPRAZOLE 40MG TABLET PO SCH (09:27)
[2018-06-27] MEDS: ESCITALOPRAM 20 MG TAB PO SCH (09:27)
[2018-06-27] MEDS: GLUCERNA SHAKE 237 ML CAN PO SCH (21:00)
[2018-06-27] MEDS: ATORVASTATIN 40 MG TAB PO SCH (21:29)
[2018-06-28] MEDS: IPRATROPIUM BROM 0.5MG/2.5ML NEB SCH ×5 (03:45→20:00)
[2018-06-28] MEDS: ALBUTEROL 2.5 MG/3 ML NEB SOL NEB SCH ×5 (03:45→20:00)
--- NOTE | 2018-06-28 04:39 | CON ---
Date of Consultation: 06/27/2018 Chief Complaint: Abnormal renal function test. Nephrology consultation is requested for elevated BU N and creatinine. The patient has history of chronic kidney disease. On previous occasion, creatini ne level was ranging from 1.84 to 2.23 and up to 2.60. Lab work today showed sodium 142, potassium 5 .0, chloride 105, bicarbonate 29, BUN 45, creatinine 2.19, glucose 153, calcium 8.6. The patient has multiple medical problems including noninsulin dependent diabetes mellitus, hypertension, chronic ki dney disease stage 3, aortic aneurysm. The patient presented to the hospital because of shortness of breath, congestive heart failure. She was started on diuretic. She came to the hospital complainin g of feeling progressively worse, weakness, fatigue. She has history of cardiomyopathy, ejection fra ction of 20%. She has history of chronic cardiorenal syndrome. During this hospitalization, she req uired diuretic therapy. She previously underwent cardiac catheterization and was found to have sever e coronary artery disease. She was treated with Lasix, Plavix, atorvastatin, aspirin, and metoprolol. The patient was started on diuretic during this hospitalization and dose was increased. The patient responded to diuretics. Nephrology consultation is requested for abnormal renal functi on test. Review of Systems: Constitutional: The patient denies fever, chills. Eyes: Denies vision changes. Ears, Nose, Mouth and Throat: Denies sore throat, earaches. Respiratory: Denies PND, orthopnea. Cardiovascular: Denies chest pain, palpitations. GI: Denies nausea, vomiting. : Denies dysuria, hematuria. Musculoskeletal: Complains of generalized weakness. Denies extremity pain. All other systems reviewed and all are negative. Past Medical History: Diabetes mellitus, hypertension, hyperlipidemia, COPD, coronary artery disease , systolic congestive heart failure, ejection fraction 30%, cardiorenal syndrome, thoracic aortic ane urysm, GERD, former tobacco use, hiatal hernia repair, 2 cardiac stents. Family History: Heart disease, mother father, heart disease. Sister, diabetes. Social History: Denies tobacco, alcohol, or illicit drugs. Physical Examination: General: The patient is awake, alert, follows commands. Vital Signs: Blood pressure is 140/100, temperature 97.9, respiratory rate 16, pulse is 92. Eyes: Anicteric sclerae, EOMI. Ears, Nose, Mouth and Throat: Oral mucosa moist. No pallor. Neck: Supple. No JVD. No bruits. Lungs: Crackles at bases. No wheezing. No rhonchi. Abdomen: Soft, benign, nontender. Extremities: Slight edema. No clubbing. No cyanosis. Neurological: Moving extremities. Cranial nerves intact. Psychiatric: Alert, oriented x3. Diagnostic Studies: Blood work: Sodium 142, potassium 5.0, chloride 105, CO2 of 29, BUN 45, creatin ine 2.19, glucose 153, calcium 8.6. Impression And Plan: 1.Congestive heart failure, cardiorenal syndrome, chronic. There is some prerenal azotemia secondar y to cardiorenal syndrome and diuretic effect. Electrolytes are stable. Monitor electrolytes. Adju st potassium and magnesium, replacement accordingly. 2.The patient has chronic congestive heart failure and presented to the hospital with congestive hea rt failure exacerbation. The patient was treated with IV Lasix and responded to treatment. 3.Hypertension. Continue blood pressure medication. 4.Coronary artery disease. Workup per Cardiology. 5.Noninsulin dependent diabetes. Continue insulin, glycemic control. EB/MODL Voice ID: [id number] Report ID: [id number]
[2018-06-28] MEDS: INSULIN -REGULAR HUMAN 50 UNIT/0.5 ML ML SQ SCH ×4 (07:30→20:47)
[2018-06-28] MEDS: ESCITALOPRAM 20 MG TAB PO SCH (09:37)
[2018-06-28] MEDS: FUROSEMIDE 40 MG TABLET PO SCH ×2 (09:38→16:29)
[2018-06-28] MEDS: METOPROLOL TAR 25 MG TAB PO SCH ×2 (09:38→21:02)
[2018-06-28] MEDS: PANTOPRAZOLE 40MG TABLET PO SCH (09:39)
[2018-06-28] MEDS: ASPIRIN 81 MG CHEWABLE TABLET PO SCH (09:39)
[2018-06-28] MEDS: CLOPIDOGREL 75 MG TABLET PO SCH (09:39)
[2018-06-28] MEDS: SACUBITRIL/VALSARTAN 24/26 MG TAB PO SCH ×2 (09:39→21:02)
[2018-06-28] MEDS: GLUCERNA SHAKE 237 ML CAN PO SCH ×2 (09:40→21:00)
[2018-06-28] MEDS ORDERED: NITROGLYCERIN 0.4 MG/TAB SL ONE (11:25)
[2018-06-28] MEDS: ACETAMINOPHEN 500 MG TAB PO PRN (11:44)
[2018-06-28] MEDS: NA CHLORIDE 0.9% 1,000 ML IV SCH (15:39)
--- NOTE | 2018-06-28 20:21 | EKG ---
Test Date: 2018-06-28 Test Time: 11:36:44 Cable Former: PHILIPPE MEASUREMENT RESULTS: Intervals: Rate: 93 MO: 156 QRSD: 96 QT: 384 QTc: 477 [place]: P: 74 MO: 156 QRS: -8 T: 112 INTERPRETIVE STATEMENTS: Normal sinus rhythm Possible Left atrial enlargement T wave abnormality, consider lateral ischemia Prolonged QT Abnormal ECG Compared to ECG 06/26/2018 09:35:54 T-wave abnormality now present Possible ischemia now present Prolonged QT interval now present Myocardial infarct finding no longer present Electronically Signed On 06-28-18 20:20:10 CDT by John Foster
--- NOTE | 2018-06-28 20:27 | PN ---
Date of Progress Note: 06/27/2018 The patient seems somewhat more alert today and has increased her appetite somewhat, although she s till complains of significant dyspnea. The disc containing the enlarged aneurysm has been sent up [facility] and depending whether she qualifies for procedure, she may be transferred up there. Otherw ise possibility of SNF and/or defibrillator will also be considered prior to making a final dispositi on. HR/MODL Voice ID: [id number] Report ID: [id number]
--- NOTE | 2018-06-28 20:36 | PN ---
Date of Progress Note: 06/28/2018 The patient had an episode of chest pain, discomfort today. EKGs showed no major change from prior, possible angina. She is also sitting up more and with some encouragement been able to do a little mo re PT. Awaiting the evaluation of her aneurysm from the thoracic surgeon. Depending on his decision , disposition will be made tomorrow. HR/MODL Voice ID: [id number] Report ID: [id number]
[2018-06-28] MEDS: ATORVASTATIN 40 MG TAB PO SCH (21:02)
[2018-06-28 21:16] VITALS: O2SAT 92
--- NOTE | 2018-06-28 23:54 | PN ---
Date of Progress Note: 06/28/2018 Chief Complaint: Acute on chronic kidney injury, prerenal azotemia. The patient has underlying dragger out eric kidney disease stage 3, baseline creatinine level 1.8, on arrival to the hospital, creatinine was 2.19. The patient has some prerenal azotemia. The patient has chronic kidney disease due to diabet ic kidney disease and hypertensive kidney disease. She has history of chronic cardiorenal syndrome. The patient is complaining of some chest pain today. She was medicated with nitroglycerin and tropo lester was ordered as well as EKG. Review of Systems: The patient denies fevers or chills. Physical Examination: Lungs: Diminished breath sounds at bases. Heart: S1 and S2. Abdomen: Soft and benign. Extremities: Slight edema. Laboratory Data: Lab work: Hemoglobin 10.3, WBC 4.6, platelet count 230,000. Chemistry showed pota ssium 5.0, BUN 45, creatinine 2.19, glucose 153. Impression And Plan: 1.Prerenal azotemia, cardiorenal syndrome, chronic. Continue low-sodium diet. Monitor electrolytes closely, and avoid potassium-sparing diuretic. The patient has borderline hyperkalemia. 2.Congestive heart failure, cardiorenal syndrome with chronic finding of kidney disease. The patien t will continue diuretic for volume control. Magnesium level is pending. 3.Hypertension, blood pressure control. 4.Coronary artery disease. Chest pain. The patient was medicated with nitroglycerin and troponin l evel was ordered and pending. 5.Diabetes mellitus, on insulin. Monitor glycemia. Adjust treatment per sliding scale. NERIS/MODL Voice ID: [id number] Report ID: [id number]
[2018-06-29] MEDS: ALBUTEROL 2.5 MG/3 ML NEB SOL NEB SCH ×4 (04:00→12:00)
[2018-06-29] MEDS: IPRATROPIUM BROM 0.5MG/2.5ML NEB SCH ×4 (04:00→12:00)
[2018-06-29 06:49] VITALS: BMI 23.3
[2018-06-29] MEDS: INSULIN -REGULAR HUMAN 50 UNIT/0.5 ML ML SQ SCH ×3 (07:30→16:55)
[2018-06-29] MEDS: ASPIRIN 81 MG CHEWABLE TABLET PO SCH (09:58)
[2018-06-29] MEDS: FUROSEMIDE 40 MG TABLET PO SCH ×2 (09:58→16:55)
[2018-06-29] MEDS: SACUBITRIL/VALSARTAN 24/26 MG TAB PO SCH (09:58)
[2018-06-29] MEDS: PANTOPRAZOLE 40MG TABLET PO SCH (09:59)
[2018-06-29] MEDS: METOPROLOL TAR 25 MG TAB PO SCH (09:59)
[2018-06-29] MEDS: ESCITALOPRAM 20 MG TAB PO SCH (09:59)
[2018-06-29] MEDS: CLOPIDOGREL 75 MG TABLET PO SCH (10:00)
[2018-06-29] MEDS: GLUCERNA SHAKE 237 ML CAN PO SCH (10:00)
[2018-06-29] MEDS ORDERED: ALPRAZOLAM 1 MG TABLET PO PRN (12:20)
[2018-06-29] MEDS ORDERED: IPRATROPIUM BROM 0.5MG/2.5ML NEB PRN (12:20)
[2018-06-29 13:18] LABS: Potassium 4.9 mmol/L (3.5-5.1)
[2018-06-29 13:44] VITALS: TEMP 98.1
[2018-06-29] MEDS ORDERED: LORAZEPAM 1 MG TABLET PO PRN (16:01)
[2018-06-29 17:02] VITALS: BP 118/84
--- NOTE | 2018-06-29 20:15 | PN ---
Date of Progress Note: 06/29/2018 Subjective: Basically status quo. Discussion with thoracic surgeon . It was felt that at the end of procedure is possibility of having an IV access is suggested. Therefore, we transferred her to [place] and arrangement will be made for this obviously diagnosed with a rapidly en larging aortic aneurysm, CHF, acute on chronic COPD with acute exacerbation, as well as episodes of a zotemia, electrolyte imbalance. The patient will attempt to be transferred later today or in the [facility]. HR/MODL Voice ID: [id number] Report ID: [id number]
--- NOTE | 2018-06-30 01:16 | PN ---
Date of Progress Note: 06/29/2018 Subjective: The patient with history of CHF, ejection fraction 20%, was admitted for shortness of breath, BNP of 60,000, and DARRYL with the creatinine of 2.2. The patient also found to have enlarging aneurysm from approximately 5 cm to 7.5 cm. Today, patient with no new complaint. Creatinine improving to 1.8. BNP down to almost 42,000. Continues to be on Lasix 40 mg p.o. b.i.d., on Entresto, evaluation. Objective: Vital Signs: Temperature 98.1, pulse rate 95, blood pressure 114/ 78. General: Awake, in mild distress. Chest: Decreased air entry bilateral. Heart: Regular rate and rhythm. Normal S1, S2. Abdomen: Soft and nontender. Extremities: No edema. Laboratory Data: Sodium 140, potassium 4.9, BUN 67, creatinine 1.8, GFR of 53, BNP 41,984. Assessment And Plan: Acute kidney injury on chronic kidney disease. Has some prerenal azotemia. Creatinine now down to baseline. start on Lasix p.r.n. as per patient weight and shortness of breath. Continue to be on Entresto. UA; 1+ protein, no blood. Chronic kidney disease, non-insulin dependent diabetes mellitus, and atherosclerotic disease. Diabetes mellitus as per primary. Congestive heart failure, continue Lasix p.r.n., on Entresto. Enlarging aortic aneurysm, vascular evaluation pending. WILLA Voice ID: [id number] Report ID: [id number]
== END 2018-06-29 18:55 | disposition short-term general hospital (02) | DRG 291 ==
LOC: ER 05:20 → ERHOLD 07:43 → 4TH 10:47 → OBSVTOIN 06-24 13:10
PROVIDERS: ADMIT Family Medicine; ATTEND Family Medicine
DX: I13.0 Hypertensive heart and chronic kidney disease with heart failure and stage 1 through stage 4 chronic kidney disease, or unspecified chronic kidney disease (principal); J96.21 Acute and chronic respiratory failure with hypoxia; J96.22 Acute and chronic respiratory failure with hypercapnia; I50.23 Acute on chronic systolic (congestive) heart failure; G93.41 Metabolic encephalopathy; J44.1 Chronic obstructive pulmonary disease with (acute) exacerbation; N17.9 Acute kidney failure, unspecified; N18.3 Chronic kidney disease, stage 3 (moderate); E11.22 Type 2 diabetes mellitus with diabetic chronic kidney disease; Z79.84 Long term (current) use of oral hypoglycemic drugs; I71.2 Thoracic aortic aneurysm, without rupture; I25.10 Atherosclerotic heart disease of native coronary artery without angina pectoris; E78.2 Mixed hyperlipidemia; I42.8 Other cardiomyopathies; Z87.891 Personal history of nicotine dependence; F03.90 Unspecified dementia, unspecified severity, without behavioral disturbance, psychotic disturbance, mood disturbance, and anxiety; F41.9 Anxiety disorder, unspecified; F32.9 Major depressive disorder, single episode, unspecified; R63.0 Anorexia; E87.5 Hyperkalemia; E87.8 Other disorders of electrolyte and fluid balance, not elsewhere classified
CPT/HCPCS: 36415; 71045; 71046; 74176; 80048; 80053; 80076; 81001; 81003; 81015; 82150; 82962; 83690; 83735; 83880; 84100; 84484; 85025; 85610; 87086; 87088; 93005; 93306; 94640; 94760; 96374; 97110; 97162; 97530; 99285; G0378; J1940; J2405; J7030

== ENCOUNTER 2018-08-05 18:33 | Emergency (ER) | payer OTHER ==
--- OUTSIDE RECORDS SUMMARY | 2018-08-05 18:37 | XMS REPORT | Clinical Summary ---
:1945 Author Organization [facility] Address [address] [place] [address] Care Team Providers Name Role Phone Rodney Kendrick Primary Care Provider Daniel Pan Unavailable Allergies Active Allergy Reactions Severity Noted Date Comments Codeine 06/11/2016 Iodine And Iodide Containing Products Hives 06/11/2016 Medications Medication Sig Dispensed Refills Start Date End Date Status clopidogrel Take 75 mg by 0 Active (PLAVIX) 75 mg mouth daily. tablet aspirin 81 MG Take 81 mg by 0 Active chewable tablet mouth daily. metFORMIN Take 1,000 mg by 0 Active (GLUCOPHAGE) 1000 mouth 2 (two) MG tablet times daily with breakfast and dinner. atorvastatin Take 1 tablet (40 30 tablet 11 08/10/2017 Active (LIPITOR) 40 MG mg total) by mouth 9 tablet daily. budesonide Take 2 mLs (0.5 mg 60 mL 0 08/09/2017 Active (PULMICORT) 0.5 total) by 9 mg/2 mL nebulizer nebulization 2 solution (two) times daily. bumetanide Take 1 tablet (1 60 tablet 11 08/09/2017 Active (BUMEX) 1 MG mg total) by mouth 9 tablet 2 (two) times daily. isosorbide Take 1 tablet (30 30 tablet 11 08/10/2017 Active mononitrate mg total) by mouth 9 (IMDUR) 30 MG 24 daily. hr tablet zinc Apply 45 g 1 Tube 0 08/09/2017 Active oxide-petrolatum topically 2 (two) (CRITIC-AID) times daily. 20-51 % Pste topical paste escitalopram Take 10 mg by 0 Active oxalate (LEXAPRO) mouth daily. 10 MG tablet glimepiride Take 1 mg by mouth 0 Active (AMARYL) 1 MG 2 (two) times tablet daily. pantoprazole Take 40 mg by 0 Active (PROTONIX) 40 MG mouth daily. tablet milrinone Inject 24 mcg/min 100 mL 0 07/22/2018 Active (PRIMACOR) intravenously infusion 20 mg in continuous. dextrose 5% (D5W) 100 mL (200 mcg/mL) bisacodyl Take 2 tablets (10 30 tablet 0 07/23/2018 Active (DULCOLAX) 5 mg mg total) by mouth 9 EC tablet daily for 30 days. carvedilol Take 1 tablet 60 tablet 0 07/22/2018 Active (COREG) 6.25 MG (6.25 mg total) by 0 tablet mouth 2 (two) times daily. digoxin (LANOXIN) Take 1 tablet (125 60 tablet 0 07/23/2018 Active 0.125 MG tablet mcg total) by 0 mouth daily. metoprolol Take 25 mg by 0 Discontinued (LOPRESSOR) 25 MG mouth daily. 8 tablet furosemide Take 20 mg by 0 Discontinued (LASIX) 40 MG mouth daily. 8 tablet amLODIPine Take 10 mg by 0 Discontinued (NORVASC) 10 MG mouth daily. 9 tablet lisinopril Take 10 mg by 0 Discontinued (PRINIVIL,ZESTRIL mouth daily. 9 ) 10 MG tablet fluticasone-salme Inhale 1 puff by 0 Discontinued terol (ADVAIR) mouth via inhaler 8 250-50 mcg/dose 2 (two) times diskus inhaler daily. escitalopram Take 1 tablet (10 30 tablet 2 08/09/2017 oxalate (LEXAPRO) mg total) by mouth 8 10 MG tablet daily for 90 days. hydrALAZINE Take 1 tablet (25 90 tablet 11 08/09/2017 Discontinued (APRESOLINE) 25 mg total) by mouth 9 MG tablet every 8 (eight) hours. metoprolol Take 0.5 tablets 30 tablet 11 08/09/2017 Discontinued (TOPROL-XL) 25 MG (12.5 mg total) by 9 24 hr tablet mouth 2 (two) times daily. furosemide Take 40 mg by 0 Discontinued (LASIX) 40 MG mouth 2 (two) 9 tablet times daily. albuterol HFA Inhale 1 puff by 0 Discontinued (VENTOLIN HFA) 90 mouth via inhaler 9 mcg/actuation every 6 (six) inhaler hours as needed for Wheezing. Hospital, Clinic, or Other Ordered Dose Route Frequency Start Date End Date Status Facility Administered Medication bumetanide (BUMEX) 1 mg IV Once 08/18/2017 08/18/2017 Ended injection 1 mg Active Problems Problem Noted Date Right ventricular dysfunction 06/30/2018 Stage 3 chronic kidney disease 06/30/2018 Symptomatic descending thoracic aneurysm S/P TEVAR (Dr. Servin, 06/29/2018 06/29/2018) Polymorphic ventricular tachycardia 07/19/2017 ST elevation myocardial infarction involving left circumflex coronary 2017 artery Acute on chronic systolic heart failure (HCC) (EF 22%) 07/18/2017 S/P aortic aneurysm repair (EVAR, 2006) 06/12/2016 Overview: S/p TEVAR with Dr. Skinner ~2005 per patient HTN (hypertension), chronic arterial 06/11/2016 DM2 (diabetes mellitus, type 2) 06/11/2016 Emphysema lung 06/11/2016 Resolved Problems Problem Noted Date Resolved Date Stool impaction 07/03/2018 07/13/2018 Acute encephalopathy 07/24/2017 08/18/2017 Hypertensive urgency 07/24/2017 08/18/2017 Acute respiratory failure with hypoxemia 07/18/2017 08/18/2017 Acute renal failure, unspecified acute renal failure type 07/18/20172017 Acute metabolic encephalopathy 07/18/2017 08/18/2017 Acute pulmonary edema 07/18/2017 08/18/2017 Hyperglycemia 07/18/2017 08/18/2017 Cardiogenic shock 07/18/2017 08/18/2017 Lactic acid acidosis 07/18/2017 08/18/2017 Acute respiratory insufficiency 07/13/2018 Encounters Date Type Specialty Care Team Description 07/11/2018 Travel 07/08/2018 Orders Only General Internal Medicine 07/03/2018 Travel 06/30/2018 Travel 06/29/2018 Anesthesia Event Isaac Norman MD 06/29/2018 - Hospital Encounter Cardiology Ludwig Campos ST elevation myocardial infarction involving left circumflex coronary artery (HCC); 07/22/2018 MD Eric Acute postoperative pain; Preventza, Aneurysm (HCC); [place] Chronic systolic heart failure (HCC); MD Suzette H/O aortic aneurysm repair; Polymorphic ventricular tachycardia (HCC); Type 2 diabetes mellitus with other specified complication, unspecified whether terminal superintendent insulin use (HCC); Cardiogenic shock (HCC); Ischemic cardiomyopathy; Acute on chronic systolic heart failure (HCC); Acute respiratory insufficiency; Right ventricular dysfunction; Essential hypertension 06/29/2018 Surgery Preventza, REPAIR,TEVAR-THORACI [place] C ENDOVASCULAR MD Suzette ANEURYSM 08/18/2017 Office Visit Cardiology Mely Iniguez NP Acute on chronic systolic (congestive) heart failure (HCC) (Primary Dx) 08/12/2017 Documentation Transplant CristhianAdryan robertsonelle 08/12/2017 Telephone Cardiology Denise, Wilman Lin RN 08/09/2017 Abstract Transplant Luis EnriqueKevin kayeladio Isabel 07/18/2017 - Hospital Encounter Cardiology Dalia Choi Acute combined 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); 08/09/2017 MD Mario Acute pulmonary edema (HCC); [place] Hassan Acute renal failure with other specified pathological lesion in kidney (HCC); MD Yumiko Acute respiratory failure with hypoxia and hypercapnia (HCC); [place] Farrell Cardiogenic shock (HCC); MD Hira ST elevation myocardial infarction involving left circumflex coronary artery (HCC); Acute metabolic encephalopathy; Abdominal aortic aneurysm (AAA) without rupture (HCC); Pulmonary emphysema, unspecified emphysema type (HCC); Lactic acid acidosis; Polymorphic ventricular tachycardia (HCC); Type 2 diabetes mellitus with other specified complication, unspecified whether terminal superintendent insulin use (HCC); Acute encephalopathy; Acute postoperative pain; Acute respiratory failure with hypoxemia (HCC) after 08/04/2017 Family History Medical History Relation Name Comments Hypertension Father Diabetes Mother Hypertension Mother Diabetes Sister Relation Name Status Comments Father Mother Sister Social History Tobacco Use Types Packs/Day Years Used Date Former Smoker Smokeless Tobacco: Never Used Alcohol Use Drinks/Week oz/Week Comments No Sex Assigned at Date Recorded Not on file Job Start Date Occupation Industry Not on file Not on file Not on file Travel History Travel Start Travel End No recent travel history available. Last Filed Vital Signs Vital Sign Reading Time Taken Blood Pressure 144/82 07/22/2018 5:31 PM CDT Pulse 95 07/22/2018 5:31 PM CDT Temperature 35.8 C (96.4 F) 07/22/2018 12:02 PM CDT Respiratory Rate 18 07/22/2018 2:17 PM CDT Oxygen Saturation 100% 07/22/2018 5:31 PM CDT Inhaled Oxygen Concentration 28% 07/11/2018 8:26 AM CDT Weight 63.4 kg (139 lb 12.4 oz) 07/22/2018 8:51 AM CDT Height 165.1 cm (5' 5") 06/30/2018 2:00 AM CDT Body Mass Index 23.26 07/22/2018 8:51 AM CDT Plan of Treatment Date Type Specialty Care Team Description 09/13/2018 Office Visit Transplant Kenton Levy MD [address] [facility] [address] [place] [id number] [phone] Implants Implanted Type Area Meal Grinder Tender Device Shelf Model / Identifier Expiration Serial / Date Lot Francis Ray Thor Endo [id number] - [id number] CV Aneurysm COOK:AORTIC [id number] 03/20/2021 [id number] / Implanted: Qty: 1 on 06/29/2018 by Masha Servin MD INTERVENTION / [id number] Francis Gallagher Endo [id number] - [id number] CV Aneurysm COOK:AORTIC [id number] 02/10/2019 [id number] / Implanted: Qty: 1 on 06/29/2018 by Masha Servin MD INTERVENTION / [id number] Francis Gallagher Endo [id number] - [id number] CV Aneurysm COOK:AORTIC [id number] 12/27/2020 [id number] / Implanted: Qty: 1 on 06/29/2018 by Masha Servin MD INTERVENTION / [id number] [facility] Cardiovascular Coronary [place] [id number] 01/10/2018 [id number] / Implanted: Qty: 1 on 07/18/2017 by Oskana Stallings MD SCIENTIFIC / [id number] Procedures Procedure Name Priority Date/Time Associated Comments Diagnosis RHYTHM STRIP - SCAN 07/25/2018 9:50 AM CDT RHYTHM STRIP - SCAN 07/25/2018 9:50 AM CDT VASCULAR DIAGRAM -SCAN 07/25/2018 9:50 AM CDT RHYTHM STRIP - SCAN 07/24/2018 1:52 PM CDT POCT-GLUCOSE METER Routine 07/22/2018 12:27 Results for this PM CDT procedure are in the results section. POCT-GLUCOSE METER Routine 07/22/2018 8:47 Results for this AM CDT procedure are in the results section. XR CHEST 1 VIEW Routine 07/22/2018 6:38 Results for this PORTABLE/BEDSIDE AM CDT procedure are in the results section. APTT Routine 07/22/2018 4:58 Results for this AM CDT procedure are in the results section. PHOSPHORUS Routine 07/22/2018 4:58 Results for this AM CDT procedure are in the results section. MAGNESIUM Routine 07/22/2018 4:58 Results for this AM CDT procedure are in the results section. BASIC METABOLIC PANEL Routine 07/22/2018 4:58 Results for this (7) AM CDT procedure are in the results section. CBC (HEMOGRAM ONLY) Routine 07/22/2018 4:58 Results for this AM CDT procedure are in the results section. POCT-GLUCOSE METER Routine 07/21/2018 9:34 Results for this PM CDT procedure are in the results section. POCT-GLUCOSE METER Routine 07/21/2018 6:09 Results for this PM CDT procedure are in the results section. POCT-GLUCOSE METER Routine 07/21/2018 2:02 Results for this PM CDT procedure are in the results section. POCT-GLUCOSE METER Routine 07/21/2018 12:50 Results for this PM CDT procedure are in the results section. POCT-GLUCOSE METER Routine 07/21/2018 9:08 Results for this AM CDT procedure are in the results section. XR CHEST 1 VIEW Routine 07/21/2018 6:57 Results for this PORTABLE/BEDSIDE AM CDT procedure are in the results section. APTT Routine 07/21/2018 5:30 Results for this AM CDT procedure are in the results section. PHOSPHORUS Routine 07/21/2018 5:30 Results for this AM CDT procedure are in the results section. MAGNESIUM Routine 07/21/2018 5:30 Results for this AM CDT procedure are in the results section. BASIC METABOLIC PANEL Routine 07/21/2018 5:30 Results for this (7) AM CDT procedure are in the results section. CBC (HEMOGRAM ONLY) Routine 07/21/2018 5:30 Results for this AM CDT procedure are in the results section. POCT-GLUCOSE METER Routine 07/20/2018 9:03 Results for this PM CDT procedure are in the results section. POCT-GLUCOSE METER Routine 07/20/2018 6:10 Results for this PM CDT procedure are in the results section. POCT-GLUCOSE METER Routine 07/20/2018 12:41 Results for this PM CDT procedure are in the results section. POCT-GLUCOSE METER Routine 07/20/2018 8:04 Results for this AM CDT procedure are in the results section. XR CHEST 1 VIEW Routine 07/20/2018 7:05 Results for this PORTABLE/BEDSIDE AM CDT procedure are in the results section. APTT Routine 07/20/2018 5:55 Results for this AM CDT procedure are in the results section. PHOSPHORUS Routine 07/20/2018 5:55 Results for this AM CDT procedure are in the results section. MAGNESIUM Routine 07/20/2018 5:55 Results for this AM CDT procedure are in the results section. BASIC METABOLIC PANEL Routine 07/20/2018 5:55 Results for this (7) AM CDT procedure are in the results section. CBC (HEMOGRAM ONLY) Routine 07/20/2018 5:55 Results for this AM CDT procedure are in the results section. POCT-GLUCOSE METER Routine 07/20/2018 12:41 Results for this AM CDT procedure are in the results section. POCT-GLUCOSE METER Routine 07/19/2018 9:13 Results for this PM CDT procedure are in the results section. POCT-GLUCOSE METER Routine 07/19/2018 5:34 Results for this PM CDT procedure are in the results section. POCT-GLUCOSE METER Routine 07/19/2018 12:47 Results for this PM CDT procedure are in the results section. POCT-GLUCOSE METER Routine 07/19/2018 7:25 Results for this AM CDT procedure are in the results section. XR CHEST 1 VIEW Routine 07/19/2018 7:10 Results for this PORTABLE/BEDSIDE AM CDT procedure are in the results section. PROTHROMBIN TIME/INR Routine 07/19/2018 4:49 Results for this AM CDT procedure are in the results section. APTT Routine 07/19/2018 4:49 Results for this AM CDT procedure are in the results section. PHOSPHORUS Routine 07/19/2018 4:49 Results for this AM CDT procedure are in the results section. MAGNESIUM Routine 07/19/2018 4:49 Results for this AM CDT procedure are in the results section. BASIC METABOLIC PANEL Routine 07/19/2018 4:49 Results for this (7) AM CDT procedure are in the results section. CBC (HEMOGRAM ONLY) Routine 07/19/2018 4:49 Results for this AM CDT procedure are in the results section. POCT-GLUCOSE METER Routine 07/18/2018 11:04 Results for this PM CDT procedure are in the results section. POCT-GLUCOSE METER Routine 07/18/2018 9:44 Results for this PM CDT procedure are in the results section. POCT-GLUCOSE METER Routine 07/18/2018 6:14 Results for this PM CDT procedure are in the results section. POCT-GLUCOSE METER Routine 07/18/2018 8:29 Results for this AM CDT procedure are in the results section. XR CHEST 1 VIEW Routine 07/18/2018 6:52 Results for this PORTABLE/BEDSIDE AM CDT procedure are in the results section. PROTHROMBIN TIME/INR Routine 07/18/2018 3:51 Results for this AM CDT procedure are in the results section. APTT Routine 07/18/2018 3:51 Results for this AM CDT procedure are in the results section. PHOSPHORUS Routine 07/18/2018 3:51 Results for this AM CDT procedure are in the results section. MAGNESIUM Routine 07/18/2018 3:51 Results for this AM CDT procedure are in the results section. BASIC METABOLIC PANEL Routine 07/18/2018 3:51 Results for this (7) AM CDT procedure are in the results section. CBC (HEMOGRAM ONLY) Routine 07/18/2018 3:51 Results for this AM CDT procedure are in the results section. POCT-GLUCOSE METER Routine 07/17/2018 8:51 Results for this PM CDT procedure are in the results section. POCT-GLUCOSE METER Routine 07/17/2018 6:13 Results for this PM CDT procedure are in the results section. POCT-GLUCOSE METER Routine 07/17/2018 1:14 Results for this PM CDT procedure are in the results section. POCT-GLUCOSE METER Routine 07/17/2018 9:14 Results for this AM CDT procedure are in the results section. XR CHEST 1 VIEW Routine 07/17/2018 6:30 Results for this PORTABLE/BEDSIDE AM CDT procedure are in the results section. PROTHROMBIN TIME/INR Routine 07/17/2018 4:30 Results for this AM CDT procedure are in the results section. APTT Routine 07/17/2018 4:30 Results for this AM CDT procedure are in the results section. PHOSPHORUS Routine 07/17/2018 4:30 Results for this AM CDT procedure are in the results section. MAGNESIUM Routine 07/17/2018 4:30 Results for this AM CDT procedure are in the results section. BASIC METABOLIC PANEL Routine 07/17/2018 4:30 Results for this (7) AM CDT procedure are in the results section. CBC (HEMOGRAM ONLY) Routine 07/17/2018 4:30 Results for this AM CDT procedure are in the results section. POCT-GLUCOSE METER Routine 07/16/2018 9:25 Results for this PM CDT procedure are in the results section. POCT-GLUCOSE METER Routine 07/16/2018 5:58 Results for this PM CDT procedure are in the results section. POCT-GLUCOSE METER Routine 07/16/2018 1:01 Results for this PM CDT procedure are in the results section. POCT-GLUCOSE METER Routine 07/16/2018 9:40 Results for this AM CDT procedure are in the results section. XR CHEST 1 VIEW Routine 07/16/2018 6:18 Results for this PORTABLE/BEDSIDE AM CDT procedure are in the results section. PROTHROMBIN TIME/INR Routine 07/16/2018 4:49 Results for this AM CDT procedure are in the results section. APTT Routine 07/16/2018 4:49 Results for this AM CDT procedure are in the results section. PHOSPHORUS Routine 07/16/2018 4:49 Results for this AM CDT procedure are in the results section. MAGNESIUM Routine 07/16/2018 4:49 Results for this AM CDT procedure are in the results section. BASIC METABOLIC PANEL Routine 07/16/2018 4:49 Results for this (7) AM CDT procedure are in the results section. CBC (HEMOGRAM ONLY) Routine 07/16/2018 4:49 Results for this AM CDT procedure are in the results section. POCT-GLUCOSE METER Routine 07/15/2018 9:12 Results for this PM CDT procedure are in the results section. POCT-GLUCOSE METER Routine 07/15/2018 7:00 Results for this PM CDT procedure are in the results section. POCT-GLUCOSE METER Routine 07/15/2018 1:21 Results for this PM CDT procedure are in the results section. POCT-GLUCOSE METER Routine 07/15/2018 10:25 Results for this AM CDT procedure are in the results section. POCT-GLUCOSE METER Routine 07/15/2018 6:36 Results for this AM CDT procedure are in the results section. XR CHEST 1 VIEW Routine 07/15/2018 3:17 Results for this PORTABLE/BEDSIDE AM CDT procedure are in the results section. PROTHROMBIN TIME/INR Routine 07/15/2018 3:16 Results for this AM CDT procedure are in the results section. APTT Routine 07/15/2018 3:16 Results for this AM CDT procedure are in the results section. PHOSPHORUS Routine 07/15/2018 3:15 Results for this AM CDT procedure are in the results section. MAGNESIUM Routine 07/15/2018 3:15 Results for this AM CDT procedure are in the results section. BASIC METABOLIC PANEL Routine 07/15/2018 3:15 Results for this (7) AM CDT procedure are in the results section. CBC (HEMOGRAM ONLY) Routine 07/15/2018 3:15 Results for this AM CDT procedure are in the results section. POCT-GLUCOSE METER Routine 07/14/2018 9:45 Results for this PM CDT procedure are in the results section. POCT-GLUCOSE METER Routine 07/14/2018 6:48 Results for this PM CDT procedure are in the results section. POCT-GLUCOSE METER Routine 07/14/2018 4:56 Results for this PM CDT procedure are in the results section. POCT-GLUCOSE METER Routine 07/14/2018 11:32 Results for this AM CDT procedure are in the results section. XR CHEST 1 VIEW Routine 07/14/2018 4:53 Results for this PORTABLE/BEDSIDE AM CDT procedure are in the results section. PROTHROMBIN TIME/INR Routine 07/14/2018 3:20 Results for this AM CDT procedure are in the results section. APTT Routine 07/14/2018 3:20 Results for this AM CDT procedure are in the results section. PHOSPHORUS Routine 07/14/2018 3:20 Results for this AM CDT procedure are in the results section. MAGNESIUM Routine 07/14/2018 3:20 Results for this AM CDT procedure are in the results section. BASIC METABOLIC PANEL Routine 07/14/2018 3:20 Results for this (7) AM CDT procedure are in the results section. CBC (HEMOGRAM ONLY) Routine 07/14/2018 3:20 Results for this AM CDT procedure are in the results section. POCT-GLUCOSE METER Routine 07/13/2018 9:10 Results for this PM CDT procedure are in the results section. POCT-GLUCOSE METER Routine 07/13/2018 4:30 Results for this PM CDT procedure are in the results section. POCT-GLUCOSE METER Routine 07/13/2018 12:28 Results for this PM CDT procedure are in the results section. POCT-GLUCOSE METER Routine 07/13/2018 8:43 Results for this AM CDT procedure are in the results section. XR CHEST 1 VIEW Routine 07/13/2018 8:22 Results for this PORTABLE/BEDSIDE AM CDT procedure are in the results section. DIGOXIN LEVEL Routine 07/13/2018 8:06 Results for this AM CDT procedure are in the results section. PROTHROMBIN TIME/INR Routine 07/13/2018 3:06 Results for this AM CDT procedure are in the results section. APTT Routine 07/13/2018 3:06 Results for this AM CDT procedure are in the results section. PHOSPHORUS Routine 07/13/2018 3:06 Results for this AM CDT procedure are in the results section. MAGNESIUM Routine 07/13/2018 3:06 Results for this AM CDT procedure are in the results section. BASIC METABOLIC PANEL Routine 07/13/2018 3:06 Results for this (7) AM CDT procedure are in the results section. CBC (HEMOGRAM ONLY) Routine 07/13/2018 3:06 Results for this AM CDT procedure are in the results section. POCT-GLUCOSE METER Routine 07/12/2018 10:39 Results for this PM CDT procedure are in the results section. TRANSFUSION SERVICE 07/12/2018 5:56 REPORT - SCAN PM CDT POCT-GLUCOSE METER Routine 07/12/2018 5:55 Results for this PM CDT procedure are in the results section. POCT-GLUCOSE METER Routine 07/12/2018 11:55 Results for this AM CDT procedure are in the results section. POCT-GLUCOSE METER Routine 07/12/2018 9:43 Results for this AM CDT procedure are in the results section. POCT-GLUCOSE METER Routine 07/12/2018 6:36 Results for this AM CDT procedure are in the results section. XR CHEST 1 VIEW Routine 07/12/2018 5:53 Results for this PORTABLE/BEDSIDE AM CDT procedure are in the results section. PROTHROMBIN TIME/INR Routine 07/12/2018 3:24 Results for this AM CDT procedure are in the results section. APTT Routine 07/12/2018 3:24 Results for this AM CDT procedure are in the results section. PHOSPHORUS Routine 07/12/2018 3:24 Results for this AM CDT procedure are in the results section. MAGNESIUM Routine 07/12/2018 3:24 Results for this AM CDT procedure are in the results section. BASIC METABOLIC PANEL Routine 07/12/2018 3:24 Results for this (7) AM CDT procedure are in the results section. CBC (HEMOGRAM ONLY) Routine 07/12/2018 3:24 Results for this AM CDT procedure are in the results section. POCT-GLUCOSE METER Routine 07/12/2018 12:10 Results for this AM CDT procedure are in the results section. PREPARE LEUKO-REDUCED Routine 07/11/2018 11:54 Results for this RBC PM CDT procedure are in the results section. TRANSFUSION SERVICE 07/11/2018 6:18 REPORT - SCAN PM CDT POCT-GLUCOSE METER Routine 07/11/2018 5:56 Results for this PM CDT procedure are in the results section. POCT-GLUCOSE METER Routine 07/11/2018 11:55 Results for this AM CDT procedure are in the results section. POCT-GLUCOSE METER Routine 07/11/2018 5:25 Results for this AM CDT procedure are in the results section. XR CHEST 1 VIEW Routine 07/11/2018 3:52 Results for this PORTABLE/BEDSIDE AM CDT procedure are in the results section. PROTHROMBIN TIME/INR Routine 07/11/2018 3:18 Results for this AM CDT procedure are in the results section. APTT Routine 07/11/2018 3:18 Results for this AM CDT procedure are in the results section. PHOSPHORUS Routine 07/11/2018 3:18 Results for this AM CDT procedure are in the results section. MAGNESIUM Routine 07/11/2018 3:18 Results for this AM CDT procedure are in the results section. BASIC METABOLIC PANEL Routine 07/11/2018 3:18 Results for this (7) AM CDT procedure are in the results section. CBC (HEMOGRAM ONLY) Routine 07/11/2018 3:18 Results for this AM CDT procedure are in the results section. POCT-GLUCOSE METER Routine 07/10/2018 11:59 Results for this PM CDT procedure are in the results section. TRANSFUSE LEUKO-REDUCED Routine 07/10/2018 6:35 RED BLOOD CELLS PM CDT POCT-GLUCOSE METER Routine 07/10/2018 6:17 Results for this PM CDT procedure are in the results section. POCT-GLUCOSE METER Routine 07/10/2018 12:11 Results for this PM CDT procedure are in the results section. XR CHEST 1 VIEW Routine 07/10/2018 7:34 Results for this PORTABLE/BEDSIDE AM CDT procedure are in the results section. POCT-GLUCOSE METER Routine 07/10/2018 6:31 Results for this AM CDT procedure are in the results section. POCT-GLUCOSE METER Routine 07/10/2018 5:32 Results for this AM CDT procedure are in the results section. TYPE AND SCREEN, Routine 07/10/2018 5:25 Results for this AUTOMATED AM CDT procedure are in the results section. PROTHROMBIN TIME/INR Routine 07/10/2018 3:10 Results for this AM CDT procedure are in the results section. APTT Routine 07/10/2018 3:10 Results for this AM CDT procedure are in the results section. PHOSPHORUS Routine 07/10/2018 3:10 Results for this AM CDT procedure are in the results section. MAGNESIUM Routine 07/10/2018 3:10 Results for this AM CDT procedure are in the results section. BASIC METABOLIC PANEL Routine 07/10/2018 3:10 Results for this (7) AM CDT procedure are in the results section. CBC (HEMOGRAM ONLY) Routine 07/10/2018 3:10 Results for this AM CDT procedure are in the results section. POCT-GLUCOSE METER Routine 07/09/2018 11:50 Results for this PM CDT procedure are in the results section. POCT-GLUCOSE METER Routine 07/09/2018 5:22 Results for this PM CDT procedure are in the results section. POCT-GLUCOSE METER Routine 07/09/2018 12:06 Results for this PM CDT procedure are in the results section. XR CHEST 1 VIEW Routine 07/09/2018 5:57 Results for this PORTABLE/BEDSIDE AM CDT procedure are in the results section. POCT-GLUCOSE METER Routine 07/09/2018 5:11 Results for this AM CDT procedure are in the results section. PROTHROMBIN TIME/INR Routine 07/09/2018 4:01 Results for this AM CDT procedure are in the results section. APTT Routine 07/09/2018 4:01 Results for this AM CDT procedure are in the results section. PHOSPHORUS Routine 07/09/2018 4:01 Results for this AM CDT procedure are in the results section. MAGNESIUM Routine 07/09/2018 4:01 Results for this AM CDT procedure are in the results section. BASIC METABOLIC PANEL Routine 07/09/2018 4:01 Results for this (7) AM CDT procedure are in the results section. CBC (HEMOGRAM ONLY) Routine 07/09/2018 4:01 Results for this AM CDT procedure are in the results section. POCT-GLUCOSE METER Routine 07/08/2018 11:26 Results for this PM CDT procedure are in the results section. POCT-GLUCOSE METER Routine 07/08/2018 5:24 Results for this PM CDT procedure are in the results section. ECG 12-LEAD Routine 07/08/2018 12:15 Results for this PM CDT procedure are in the results section. POCT-GLUCOSE METER Routine 07/08/2018 11:44 Results for this AM CDT procedure are in the results section. XR CHEST 1 VIEW Routine 07/08/2018 4:40 Results for this PORTABLE/BEDSIDE AM CDT procedure are in the results section. PROTHROMBIN TIME/INR Routine 07/08/2018 3:37 Results for this AM CDT procedure are in the results section. APTT Routine 07/08/2018 3:37 Results for this AM CDT procedure are in the results section. PHOSPHORUS Routine 07/08/2018 3:37 Results for this AM CDT procedure are in the results section. MAGNESIUM Routine 07/08/2018 3:37 Results for this AM CDT procedure are in the results section. BASIC METABOLIC PANEL Routine 07/08/2018 3:37 Results for this (7) AM CDT procedure are in the results section. CBC (HEMOGRAM ONLY) Routine 07/08/2018 3:37 Results for this AM CDT procedure are in the results section. XR CHEST 1 VIEW Routine 07/07/2018 5:50 Results for this PORTABLE/BEDSIDE AM CDT procedure are in the results section. PROTHROMBIN TIME/INR Routine 07/07/2018 4:48 Results for this AM CDT procedure are in the results section. APTT Routine 07/07/2018 4:48 Results for this AM CDT procedure are in the results section. PHOSPHORUS Routine 07/07/2018 4:48 Results for this AM CDT procedure are in the results section. MAGNESIUM Routine 07/07/2018 4:48 Results for this AM CDT procedure are in the results section. BASIC METABOLIC PANEL Routine 07/07/2018 4:48 Results for this (7) AM CDT procedure are in the results section. CBC (HEMOGRAM ONLY) Routine 07/07/2018 4:48 Results for this AM CDT procedure are in the results section. XR CHEST 1 VIEW STAT 07/06/2018 4:54 Results for this PORTABLE/BEDSIDE PM CDT procedure are in the results section. MAGNESIUM STAT 07/06/2018 4:26 Results for this PM CDT procedure are in the results section. BASIC METABOLIC PANEL STAT 07/06/2018 4:26 Results for this (7) PM CDT procedure are in the results section. BLOOD GAS, ARTERIAL Routine 07/06/2018 4:26 Results for this PM CDT procedure are in the results section. XR CHEST 1 VIEW Routine 07/06/2018 11:29 Results for this PORTABLE/BEDSIDE AM CDT procedure are in the results section. ECG 12-LEAD Routine 07/06/2018 10:28 Results for this AM CDT procedure are in the results section. PROTHROMBIN TIME/INR Routine 07/06/2018 3:28 Results for this AM CDT procedure are in the results section. APTT Routine 07/06/2018 3:28 Results for this AM CDT procedure are in the results section. PHOSPHORUS Routine 07/06/2018 3:28 Results for this AM CDT procedure are in the results section. MAGNESIUM Routine 07/06/2018 3:28 Results for this AM CDT procedure are in the results section. BASIC METABOLIC PANEL Routine 07/06/2018 3:28 Results for this (7) AM CDT procedure are in the results section. CBC (HEMOGRAM ONLY) Routine 07/06/2018 3:28 Results for this AM CDT procedure are in the results section. HEPATIC FUNCTION PANEL Routine 07/05/2018 5:16 Results for this PM CDT procedure are in the results section. XR CHEST 1 VIEW Routine 07/05/2018 5:43 Results for this PORTABLE/BEDSIDE AM CDT procedure are in the results section. PROTHROMBIN TIME/INR Routine 07/05/2018 3:42 Results for this AM CDT procedure are in the results section. APTT Routine 07/05/2018 3:42 Results for this AM CDT procedure are in the results section. PHOSPHORUS Routine 07/05/2018 3:42 Results for this AM CDT procedure are in the results section. MAGNESIUM Routine 07/05/2018 3:42 Results for this AM CDT procedure are in the results section. BASIC METABOLIC PANEL Routine 07/05/2018 3:42 Results for this (7) AM CDT procedure are in the results section. CBC (HEMOGRAM ONLY) Routine 07/05/2018 3:42 Results for this AM CDT procedure are in the results section. POCT-GLUCOSE METER Routine 07/04/2018 6:20 Results for this PM CDT procedure are in the results section. XR CHEST 1 VIEW Routine 07/04/2018 6:02 Results for this PORTABLE/BEDSIDE AM CDT procedure are in the results section. PROTHROMBIN TIME/INR Routine 07/04/2018 3:48 Results for this AM CDT procedure are in the results section. APTT Routine 07/04/2018 3:48 Results for this AM CDT procedure are in the results section. PHOSPHORUS Routine 07/04/2018 3:48 Results for this AM CDT procedure are in the results section. MAGNESIUM Routine 07/04/2018 3:48 Results for this AM CDT procedure are in the results section. BASIC METABOLIC PANEL Routine 07/04/2018 3:48 Results for this (7) AM CDT procedure are in the results section. CBC (HEMOGRAM ONLY) Routine 07/04/2018 3:48 Results for this AM CDT procedure are in the results section. POTASSIUM Routine 07/03/2018 10:03 Results for this AM CDT procedure are in the results section. POCT-GLUCOSE METER Routine 07/03/2018 8:13 Results for this AM CDT procedure are in the results section. XR ABDOMEN 1 VIEW STAT 07/03/2018 6:15 Results for this AM CDT procedure are in the results section. XR CHEST 1 VIEW Routine 07/03/2018 6:15 Results for this PORTABLE/BEDSIDE AM CDT procedure are in the results section. PROTHROMBIN TIME/INR Routine 07/03/2018 3:24 Results for this AM CDT procedure are in the results section. APTT Routine 07/03/2018 3:24 Results for this AM CDT procedure are in the results section. PHOSPHORUS Routine 07/03/2018 3:24 Results for this AM CDT procedure are in the results section. MAGNESIUM Routine 07/03/2018 3:24 Results for this AM CDT procedure are in the results section. BASIC METABOLIC PANEL Routine 07/03/2018 3:24 Results for this (7) AM CDT procedure are in the results section. CBC (HEMOGRAM ONLY) Routine 07/03/2018 3:24 Results for this AM CDT procedure are in the results section. OXYGEN SATURATION, Routine 07/02/2018 10:46 Results for this MEASURED AM CDT procedure are in the results section. OXYGEN SATURATION, STAT 07/02/2018 8:43 Results for this MEASURED AM CDT procedure are in the results section. BLOOD GAS, ARTERIAL Routine 07/02/2018 8:43 Results for this AM CDT procedure are in the results section. CBC W/PLT COUNT & AUTO STAT 07/02/2018 4:09 Results for this DIFFERENTIAL AM CDT procedure are in the results section. CBC W/PLT COUNT & AUTO STAT 07/02/2018 4:09 Results for this DIFFERENTIAL AM CDT procedure are in the results section. BASIC METABOLIC PANEL STAT 07/02/2018 4:09 Results for this (7) AM CDT procedure are in the results section. XR CHEST 1 VIEW Routine 07/02/2018 3:39 Results for this PORTABLE/BEDSIDE AM CDT procedure are in the results section. BASIC METABOLIC PANEL Routine 07/01/2018 6:00 Results for this (7) PM CDT procedure are in the results section. BLOOD GAS, ARTERIAL Routine 07/01/2018 6:00 Results for this PM CDT procedure are in the results section. CBC W/PLT COUNT & AUTO STAT 07/01/2018 5:37 Results for this DIFFERENTIAL AM CDT procedure are in the results section. CBC W/PLT COUNT & AUTO STAT 07/01/2018 5:37 Results for this DIFFERENTIAL AM CDT procedure are in the results section. BASIC METABOLIC PANEL STAT 07/01/2018 5:37 Results for this (7) AM CDT procedure are in the results section. XR CHEST 1 VIEW Routine 07/01/2018 4:43 Results for this PORTABLE/BEDSIDE AM CDT procedure are in the results section. ECHOCARDIOGRAM REPORT - 06/30/2018 9:22 SCAN PM CDT TRANSFUSION SERVICE 06/30/2018 6:03 REPORT - SCAN PM CDT CBC W/PLT COUNT & AUTO Routine 06/30/2018 3:08 Results for this DIFFERENTIAL PM CDT procedure are in the results section. MAGNESIUM Routine 06/30/2018 3:08 Results for this PM CDT procedure are in the results section. BASIC METABOLIC PANEL Routine 06/30/2018 3:08 Results for this (7) PM CDT procedure are in the results section. CBC W/PLT COUNT & AUTO Routine 06/30/2018 3:08 Results for this DIFFERENTIAL PM CDT procedure are in the results section. 2D ECHO W/ DOPPLER STAT 06/30/2018 8:36 Results for this (CW/PW/COLOR) AM CDT procedure are in the results section. XR CHEST 1 VIEW Routine 06/30/2018 6:25 Results for this PORTABLE/BEDSIDE AM CDT procedure are in the results section. CBC W/PLT COUNT & AUTO STAT 06/30/2018 4:33 Results for this DIFFERENTIAL AM CDT procedure are in the results section. LACTIC ACID, ARTERIAL STAT 06/30/2018 4:33 Results for this AM CDT procedure are in the results section. CBC W/PLT COUNT & AUTO STAT 06/30/2018 4:33 Results for this DIFFERENTIAL AM CDT procedure are in the results section. BLOOD GAS, ARTERIAL Routine 06/30/2018 4:33 Results for this AM CDT procedure are in the results section. HEPATIC FUNCTION PANEL STAT 06/30/2018 3:10 Results for this AM CDT procedure are in the results section. B-TYPE NATRIURETIC STAT 06/30/2018 3:10 Results for this FACTOR (BNP) AM CDT procedure are in the results section. XR CHEST 1 VIEW STAT 06/30/2018 2:09 Results for this PORTABLE/BEDSIDE AM CDT procedure are in the results section. CBC W/PLT COUNT & AUTO STAT 06/30/2018 1:40 Results for this DIFFERENTIAL AM CDT procedure are in the results section. LACTIC ACID, ARTERIAL STAT 06/30/2018 1:40 Results for this AM CDT procedure are in the results section. OXYGEN SATURATION, STAT 06/30/2018 1:40 Results for this MEASURED AM CDT procedure are in the results section. PROTHROMBIN TIME/INR STAT 06/30/2018 1:40 Results for this AM CDT procedure are in the results section. APTT STAT 06/30/2018 1:40 Results for this AM CDT procedure are in the results section. BASIC METABOLIC PANEL STAT 06/30/2018 1:40 Results for this (7) AM CDT procedure are in the results section. CBC W/PLT COUNT & AUTO STAT 06/30/2018 1:40 Results for this DIFFERENTIAL AM CDT procedure are in the results section. BLOOD GAS, ARTERIAL Routine 06/30/2018 1:40 Results for this AM CDT procedure are in the results section. PREPARE RBC Routine 06/30/2018 1:27 Results for this AM CDT procedure are in the results section. POCT-ACT Routine 06/30/2018 12:52 Results for this AM CDT procedure are in the results section. POCT-ACT Routine 06/29/2018 11:59 Results for this PM CDT procedure are in the results section. POCT-ACT Routine 06/29/2018 11:23 Results for this PM CDT procedure are in the results section. POCT-ACT Routine 06/29/2018 11:09 Results for this PM CDT procedure are in the results section. HGB/HCT (H&H) - STAT STAT 06/29/2018 11:07 Results for this LAB PM CDT procedure are in the results section. GLUCOSE-STAT LAB STAT 06/29/2018 11:07 Results for this PM CDT procedure are in the results section. POTASSIUM-STAT LAB STAT 06/29/2018 11:07 Results for this PM CDT procedure are in the results section. SODIUM NA-STAT LAB STAT 06/29/2018 11:07 Results for this PM CDT procedure are in the results section. BLOOD GAS, ARTERIAL STAT 06/29/2018 11:07 Results for this PM CDT procedure are in the results section. FILTER IONIZED CALCIUM STAT 06/29/2018 11:07 Results for this PM CDT procedure are in the results section. RRL CRITICAL LABS STAT 06/29/2018 11:07 Results for this (ABG,NA,K,H&H,GLUCOSE) PM CDT procedure are in the results section. ANESTHESIA CONOR Routine 06/29/2018 10:41 Results for this PM CDT procedure are in the results section. CBC W/PLT COUNT & AUTO STAT 06/29/2018 8:52 Results for this DIFFERENTIAL PM CDT procedure are in the results section. TYPE AND SCREEN, Routine 06/29/2018 8:52 Results for this AUTOMATED PM CDT procedure are in the results section. B-TYPE NATRIURETIC STAT 06/29/2018 8:52 Results for this FACTOR (BNP) PM CDT procedure are in the results section. PROTHROMBIN TIME/INR STAT 06/29/2018 8:52 Results for this PM CDT procedure are in the results section. APTT STAT 06/29/2018 8:52 Results for this PM CDT procedure are in the results section. BASIC METABOLIC PANEL STAT 06/29/2018 8:52 Results for this (7) PM CDT procedure are in the results section. CBC W/PLT COUNT & AUTO STAT 06/29/2018 8:52 Results for this DIFFERENTIAL PM CDT procedure are in the results section. REPAIR,TEVAR-THORACIC 06/29/2018 8:00 Thoracic aortic ENDOVASCULAR ANEURYSM PM CDT aneurysm without rupture (HCC) Case Notes TEVAR, CSF Special Needs TEVAR, CSF MAGNESIUM Routine 08/18/2017 2:44 PM Acute on chronic Results for this CDT systolic procedure are in (congestive) heart the results failure (HCC) section. B-TYPE NATRIURETIC STAT 08/18/2017 2:44 PM Acute on chronic Results for this FACTOR (BNP) CDT systolic procedure are in (congestive) heart the results failure (HCC) section. BASIC METABOLIC PANEL STAT 08/18/2017 2:44 PM Acute on chronic Results for this (7) CDT systolic procedure are in (congestive) heart the results failure (HCC) section. PULMONARY FUNCTION - 08/11/2017 12:52 PM SCAN CDT VASCULAR DIAGRAM 08/10/2017 12:50 PM -SCAN CDT PULMONARY FUNCTION - 08/10/2017 12:50 PM SCAN CDT REPORT OF PROCEDURE - 08/10/2017 12:50 PM ENDOSCOPY SCAN CDT RHYTHM STRIP - SCAN 08/10/2017 12:50 PM CDT POCT-GLUCOSE METER Routine 08/09/2017 12:10 PM Results for this CDT procedure are in the results section. POCT-GLUCOSE METER Routine 08/09/2017 7:40 AM Results for this CDT procedure are in the results section. BASIC METABOLIC PANEL Routine 08/09/2017 4:17 AM Results for this (7) CDT procedure are in the results section. POCT-GLUCOSE METER Routine 08/08/2017 9:36 PM Results for this CDT procedure are in the results section. POCT-GLUCOSE METER Routine 08/08/2017 5:00 PM Results for this CDT procedure are in the results section. POCT-GLUCOSE METER Routine 08/08/2017 12:29 PM Results for this CDT procedure are in the results section. POCT-GLUCOSE METER Routine 08/08/2017 10:29 AM Results for this CDT procedure are in the results section. MAGNESIUM Routine 08/08/2017 3:57 AM Results for this CDT procedure are in the results section. BASIC METABOLIC PANEL Routine 08/08/2017 3:57 AM Results for this (7) CDT procedure are in the results section. POCT-GLUCOSE METER Routine 08/07/2017 9:27 PM Results for this CDT procedure are in the results section. POCT-GLUCOSE METER Routine 08/07/2017 5:19 PM Results for this CDT procedure are in the results section. POCT-GLUCOSE METER Routine 08/07/2017 12:46 PM Results for this CDT procedure are in the results section. POCT-GLUCOSE METER Routine 08/07/2017 7:25 AM Results for this CDT procedure are in the results section. MAGNESIUM Routine 08/07/2017 6:07 AM Results for this CDT procedure are in the results section. BASIC METABOLIC PANEL Routine 08/07/2017 6:07 AM Results for this (7) CDT procedure are in the results section. POCT-GLUCOSE METER Routine 08/06/2017 8:52 PM Results for this CDT procedure are in the results section. POCT-GLUCOSE METER Routine 08/06/2017 5:44 PM Results for this CDT procedure are in the results section. POCT-GLUCOSE METER Routine 08/06/2017 11:38 AM Results for this CDT procedure are in the results section. POCT-GLUCOSE METER Routine 08/06/2017 7:39 AM Results for this CDT procedure are in the results section. MAGNESIUM Routine 08/06/2017 3:30 AM Results for this CDT procedure are in the results section. BASIC METABOLIC PANEL Routine 08/06/2017 3:30 AM Results for this (7) CDT procedure are in the results section. POCT-GLUCOSE METER Routine 08/05/2017 9:14 PM Results for this CDT procedure are in the results section. POCT-GLUCOSE METER Routine 08/05/2017 5:53 PM Results for this CDT procedure are in the results section. POCT-GLUCOSE METER Routine 08/05/2017 7:01 AM Results for this CDT procedure are in the results section. CBC W/PLT COUNT & Routine 08/05/2017 4:24 AM Results for this AUTO DIFFERENTIAL CDT procedure are in the results section. CBC W/PLT COUNT & Routine 08/05/2017 4:24 AM Results for this AUTO DIFFERENTIAL CDT procedure are in the results section. BASIC METABOLIC PANEL Routine 08/05/2017 4:24 AM Results for this (7) CDT procedure are in the results section. MAGNESIUM Routine 08/05/2017 4:24 AM Results for this CDT procedure are in the results section. POCT-GLUCOSE METER Routine 08/04/2017 9:27 PM Results for this CDT procedure are in the results section. CARDIAC CATH REPORT - 08/04/2017 7:12 PM SCAN CDT POCT-GLUCOSE METER Routine 08/04/2017 6:22 PM Results for this CDT procedure are in the results section. POCT-GLUCOSE METER Routine 08/04/2017 9:35 AM Results for this CDT procedure are in the results section. CBC W/PLT COUNT & Routine 08/04/2017 6:14 AM Results for this AUTO DIFFERENTIAL CDT procedure are in the results section. RETICULOCYTE COUNT Routine 08/04/2017 6:14 AM Results for this CDT procedure are in the results section. FERRITIN Routine 08/04/2017 6:14 AM Results for this CDT procedure are in the results section. IRON, TIBC, % SAT. Routine 08/04/2017 6:14 AM Results for this (WITHOUT FERRITIN) CDT procedure are in the results section. B-TYPE NATRIURETIC Routine 08/04/2017 6:14 AM Results for this FACTOR (BNP) CDT procedure are in the results section. CBC W/PLT COUNT & Routine 08/04/2017 6:14 AM Results for this AUTO DIFFERENTIAL CDT procedure are in the results section. BASIC METABOLIC PANEL Routine 08/04/2017 6:14 AM Results for this (7) CDT procedure are in the results section. PHOSPHORUS Routine 08/04/2017 6:14 AM Results for this CDT procedure are in the results section. MAGNESIUM Routine 08/04/2017 6:14 AM Results for this CDT procedure are in the results section. CALCIUM, IONIZED Routine 08/04/2017 6:14 AM Results for this CDT procedure are in the results section. after 08/04/2017 Results RHYTHM STRIP - SCAN (07/25/2018 9:50 AM CDT)Only the most recent of4 resultswithin the time period is included. Narrative Performed At VASCULAR DIAGRAM -SCAN (07/25/2018 9:50 AM CDT)Only the most recent of2 resultswithin the time period is included. Narrative Performed At POC-Glucose meter (07/22/2018 12:27 PM CDT)Only the most recent of84 resultswithin the time period is included. POC-Glucose Meter 221 (H)Comment: TESTED AT 70 - 110 mg/dL [facility] [address] [facility] [id number] Specimen Blood Performing Organization Address City/State/Zipcode Phone Number [facility] [address] [place] [phone] CENTER XR chest 1 view portable / bedside (07/22/2018 6:38 AM CDT)Only the most recent of25 resultswithin the time period is included. Specimen Narrative Performed At FINAL REPORT [facility] RAD, CHEST, 1 VIEW, NON DEPT INDICATION: post op COMPARISON: Prior day's exam FINDINGS: Portable frontal view of the chest. IMPRESSION: Support Lines: Stable. Lungs and pleura: Unchanged airspace and pleural opacities. No pneumothorax. Heart and mediastinum: Stable contours. Stable surgical changes. Additional findings: None. Signed: Trey Robles MD Report Verified Date/Time:07/22/2018 08:57:17 Reading Location: [facility] C013V Neuro Reading Room Procedure Note Interface, External Ris In - 07/22/2018 8:59 AM CDT FINAL REPORT RAD, CHEST, 1 VIEW, NON DEPT INDICATION: post op COMPARISON: Prior day's exam FINDINGS: Portable frontal view of the chest. IMPRESSION: Support Lines: Stable. Lungs and pleura: Unchanged airspace and pleural opacities. No pneumothorax. Heart and mediastinum: Stable contours. Stable surgical changes. Additional findings: None. Signed: Trey Robles MD Report Verified Date/Time: 07/22/2018 08:57:17 Reading Location: [facility] C013V Neuro Reading Room Performing Organization Address City/State/Zipcode Phone Number GE RIS aPTT (07/22/2018 4:58 AM CDT)Only the most recent of22 resultswithin the time period is included. PTT 44.5 (H) 22.5 - 36.0 seconds [facility] Specimen Blood Performing Organization Address City/[facility]/[place] [address] [phone] CENTER CBC (Hemogram only) (07/22/2018 4:58 AM CDT)Only the most recent of20 resultswithin the time period is included. WBC 6.6 3.5 - 10.5 K/L [facility] RBC 2.45 (L) 3.93 - 5.22 M/L [facility] Hemoglobin 7.7 (L) 11.2 - 15.7 GM/DL [facility] Hematocrit 26.1 (L) 34.1 - 44.9 % [facility] MCV 106.5 (H) 79.4 - 94.8 fL [facility] MCH 31.4 25.6 - 32.2 pg [facility] MCHC 29.5 (L) 32.2 - 35.5 GM/DL [facility] RDW 18.0 (H) 11.7 - 14.4 % [facility] Platelets 227 150 - 450 K/CU MM [facility] MPV 10.0 9.4 - 12.3 fL [facility] nRBC 0 0 - 0 /100 WBC [facility] Specimen Blood Performing Organization Address City/[facility] Phone Number [address] [address] [phone] [place] Phosphorus (07/22/2018 4:58 AM CDT)Only the most recent of21 resultswithin the time period is included. Phosphorus 3.9 2.3 - 4.7 mg/dL [facility] Specimen Blood Performing Organization Address City/[facility] Phone Number [address] [phone] [place] Magnesium (07/22/2018 4:58 AM CDT)Only the most recent of28 resultswithin the time period is included. Magnesium 1.7 1.6 - 2.6 mg/dL [facility] Specimen Blood Performing Organization Address City/[facility] Phone Number [address] [address] [place] Basic Metabolic Panel (07/22/2018 4:58 AM CDT)Only the most recent of34 resultswithin the time period is included. Sodium 139 136 - 145 meq/L [facility] Potassium 4.4 3.5 - 5.1 meq/L [facility] Chloride 102 98 - 107 meq/L [facility] CO2 30 (H) 22 - 29 meq/L [facility] BUN 23 (H) 7 - 21 mg/dL [facility] Creatinine 1.40 (H) 0.57 - 1.25 mg/dL [facility] Glucose 139 (H) 70 - 105 mg/dL [facility] Calcium 8.8 8.4 - 10.2 mg/dL [facility] EGFR 45Comment: ESTIMATED GFR IS mL/min/1.73 sq m [facility] NOT ACCURATE CREATININE [facility] CLEARANCE IN PREDICTING GLOMERULAR FILTRATION RATE. ESTIMATED GFR IS NOT APPLICABLE FOR DIALYSIS PATIENTS. Specimen Blood Performing Organization Address [facility] Unit[facility] Phone Number [address] [address] [phone] CENTER Prothrombin time/INR (07/19/2018 4:49 AM CDT)Only the most recent of19 resultswithin the time period is included. Protime 13.9 11.7 - 14.7 seconds [facility] INR 1.1 <=5.9 [facility] Specimen Blood Narrative Performed At RECOMMENDED COUMADIN/WARFARIN INR THERAPY [facility] RANGES STANDARD DOSE: 2.0 - 3.0 Includes: PROPHYLAXIS for venous thrombosis, systemic embolization; TREATMENT for venous thrombosis and/or pulmonary embolus. HIGH RISK: Target INR is 2.5-3.5 for patients with mechanical heart valves. Performing Organization Address [facility] Phone Number [address] [address] CENTER Digoxin level (07/13/2018 8:06 AM CDT) Digoxin Lvl 0.8 0.8 - 2.0 ng/mL [facility] Specimen Blood Narrative Performed At Draw before next dose of Digoxin [facility] Performing Organization Address [facility]/Zipcode Phone Number [address] [address] CENTER TRANSFUSION SERVICE REPORT - SCAN (07/12/2018 5:56 PM CDT)Only the most recent of3 resultswithin the time period is included. Narrative Performed At Prepare Leuko-Red RBC (07/11/2018 11:54 PM CDT) Unit ABO A Pos SAFETRACE [place] UNIT NUMBER [id number] [place]AFET[place]ACE [place] Status TX_TIMEINCHART [place]AF[place]ACE [place] Blood Bank Product RED BLOOD CELLS [place]AF[place]ACE [place] PRODUCT CODE [id number] SAFET[place]ACE [place] CROSSMATCH COMPATIBLE SAFETRACE [place] Specimen Other Performing Organization Address City/[facility] Phone Number SAFETRACE [place] Transfuse Leuko-Red RBC (07/10/2018 6:35 PM CDT)Only the most recent of2 resultswithin the time period is included.Type and screen, automated (2018 5:25 AM CDT)Only the most recent of2 resultswithin the time period is included. ABO/RH AUTOMATED (BEAKER) A POSITIVE [facility] Ab Scrn NEGATIVE [facility] Specimen Blood Performing Organization Address City/[facility] Phone Number [facility] [address] [place] [address] ECG 12 lead (07/08/2018 12:15 PM CDT)Only the most recent of2 resultswithin the time period is included. Specimen Narrative Performed At Ventricular Rate 107 BPM GE MUSE Atrial Rate 107 BPM P-R Interval 154 ms QRS Duration 104 ms Q-T Interval 382 ms QTC Calculation(Bazett) 509 ms P [place] 52 degrees R [place] -18 degrees T [place] 62 degrees Sinus tachycardia Nonspecific T wave abnormality Prolonged QT Abnormal ECG When compared with ECG of 06-JUL-2018 10:28, Nonspecific T wave abnormality, improved in Anterior leads QT has lengthened Confirmed by MD BIRGIT, RADHA ([id number]) on 07/09/2018 6:44:32 AM Procedure Note Interface, External Ris In - 07/09/2018 6:44 AM CDT Ventricular Rate 107 BPM Atrial Rate 107 BPM P-R Interval 154 ms QRS Duration 104 ms Q-T Interval 382 ms QTC Calculation(Bazett) 509 ms P [place] 52 degrees R [place] -18 degrees T [place] 62 degrees Sinus tachycardia Nonspecific T wave abnormality Prolonged QT Abnormal ECG When compared with ECG of 06-JUL-2018 10:28, Nonspecific T wave abnormality, improved in Anterior leads QT has lengthened Confirmed by MD BIRGIT, [facility] ([id number]) on 07/09/2018 6:44:32 AM Performing Organization Address City/[facility]/Zipcode Phone Number GE MUSE Blood gas, arterial (07/06/2018 4:26 PM CDT)Only the most recent of6 resultswithin the time period is included. pH, Arterial 7.46 (H) 7.35 - 7.45 [facility] pCO2, Arterial 42 35 - 45 mmHg [facility] pO2, Arterial 63 (L) 80 - 90 mmHg [facility] O2 Sat, Arterial 93.1 (L) 96.0 - 97.0 % [facility] HCO3, Arterial 29 21 - 29 mmol/L [facility] Base Excess, Arterial 4.4 (H) -2.0 - 3.0 mmol/L [facility] Patient Temperature 37.0 C [facility] FIO2 32.0 % [facility] Specimen Blood, Arterial Performing Organization Address City/[facility]/Zipcode Phone Number [facility] [address] [place] [address] [phone] CENTER Hepatic function panel (07/05/2018 5:16 PM CDT)Only the most recent of2 resultswithin the time period is included. Protein, Total 6.2 6.0 - 8.3 gm/dL [facility] Albumin 3.2 (L) 3.5 - 5.0 g/dL [facility] Total Bilirubin 0.7 0.2 - 1.2 mg/dL [facility] Bilirubin, Direct 0.5 0.1 - 0.5 mg/dL [facility] Alkaline Phosphatase 84 40 - 150 U/L [facility] AST 16 5 - 34 U/L [facility] ALT 9 6 - 55 U/L [facility] Specimen Blood Performing Organization Address City/State/Zipcode Phone Number [facility] [address] [place] [address] CENTER Potassium (07/03/2018 10:03 AM CDT) Potassium 4.3 3.5 - 5.1 meq/L [facility] Specimen Blood Narrative Performed At Check Serum Potassium level 30 minutes after [facility] IV potassium replacement completed. Performing Organization Address City/State/Zipcode Phone Number [facility] [address] [place] [address] [phone] CENTER XR abdomen / KUB 1 view (07/03/2018 6:15 AM CDT) Specimen Narrative Performed At FINAL REPORT GE RIS CLINICAL HISTORY: abd pain TECHNIQUE: RAD, ABDOMEN/KUB, 1 VIEW AP COMPARISON: None FINDINGS: Nonspecific bowel gas pattern without distended loops of bowel to suggest obstruction.Large stool burden throughout the large bowel. Vascular stents over the chest and abdomen. Vascular calcifications. Rectal temperature probe overlies the pelvis. Surgical clips overlie the bilateral inguinal regions. Osteopenia. Please see recent plain radiograph the chest for further details on intrathoracic contents. Signed: Maryana Spann MD Report Verified Date/Time:07/03/2018 06:21:16 Reading Location: [address] Transitional Reading Room Procedure Note Interface, External Ris In - 07/03/2018 6:23 AM CDT FINAL REPORT CLINICAL HISTORY: abd pain TECHNIQUE: RAD, ABDOMEN/KUB, 1 VIEW AP COMPARISON: None FINDINGS: Nonspecific bowel gas pattern without distended loops of bowel to suggest obstruction. Large stool burden throughout the large bowel. Vascular stents over the chest and abdomen. Vascular calcifications. Rectal temperature probe overlies the pelvis. Surgical clips overlie the bilateral inguinal regions. Osteopenia. Please see recent plain radiograph the chest for further details on intrathoracic contents. Signed: Maryana Spann MD Report Verified Date/Time: 07/03/2018 06:21:16 Reading Location: [facility] Transitional Reading Room Performing Organization Address City/State/Zipcode Phone Number GE RIS Oxygen saturation, measured (07/02/2018 10:46 AM CDT)Only the most recent of3 resultswithin the time period is included. O2 Saturation (Measured) 50.1 % [facility] Specimen Blood Performing Organization Address City/[facility]/Zipcode Phone Number [address] [address] CENTER CBC with platelet count + automated diff (07/02/2018 4:09 AM CDT)Only the most recent of8 resultswithin the time period is included. WBC 7.9 3.5 - 10.5 K/L [facility] RBC 2.83 (L) 3.93 - 5.22 M/L [facility] Hemoglobin 8.6 (L) 11.2 - 15.7 GM/DL [facility] Hematocrit 28.4 (L) 34.1 - 44.9 % [facility] MCV 100.4 (H) 79.4 - 94.8 fL [facility] MCH 30.4 25.6 - 32.2 pg [facility] MCHC 30.3 (L) 32.2 - 35.5 GM/DL [facility] RDW 17.9 (H) 11.7 - 14.4 % [facility] Platelets 222 150 - 450 K/CU MM [facility] MPV 9.9 9.4 - 12.3 fL [facility] nRBC 0 0 - 0 /100 WBC [facility] % Neutros 85 % [facility] % Lymphs 6 % [facility] % Monos 8 % [facility] % Eos 1 % [facility] % Baso 0 % [facility] # Neutros 6.67 (H) 1.56 - 6.13 K/L [facility] # Lymphs 0.46 (L) 1.18 - 3.74 K/L [facility] # Monos 0.64 (H) 0.24 - 0.36 K/L [facility] # Eos 0.06 0.04 - 0.36 K/L [facility] # Baso 0.02 0.01 - 0.08 K/L [facility] Immature 1 0 - 1 % [facility] Specimen Blood Performing Organization Address City/State/Zipcode Phone Number [facility] [address] [place] [address] CENTER ECHOCARDIOGRAM REPORT - SCAN (06/30/2018 9:22 PM CDT) Narrative Performed At 2D Echo W/Doppler(CW/PW/Color) (06/30/2018 8:36 AM CDT) Ejection Fraction [facility] ECHO [facility] Specimen Narrative Performed At Transthoracic Echocardiography Report (TTE) [facility] Demographics Patient Name DANA, Date of Study 06/30/2018 DURGA [id number] GenderFemale Visit Number [id number] Black [id number] Room Number 2C52 Number Date of Birth1945Referring Physician Malathi Flanagan Age72 year(s)Business Sales Consultant Fela Antunez, CS AnalystIzoMD Jessika Grubbs Physician Procedure Type of Study TTE procedure:2DECHO W DOPPLER(CW/PW/COLOR) (STAT) Indications:Evaluation of Ventricular function post ACS. Clinical History HGB 10.0 HCT 34.4 % COPD, CAD, DM, HTN, STEMI, Emphysema, CHF s/p PCI (06/12/16, 07/18/17) s/p Repair, TEVAR (06/01/2018) Height: 65 inches Weight: 64.86 kg (143 lbs) BSA: 1.72 m^2 BMI: 23.8 kg/m^2 HR: 110 bpm BP: 107/100 mmHg Summary 1. LV is severely enlarged. LV function is severely reduced. LVEF is 20-24% 2. Diastology: Unable to comment due to significant MR 3. RV is moderately enlarged. Depressed RV function 4. Moderate tricuspid regurgitation. Estimated PASP is 65-70 mm Hg 5. Trace pericardial effusion noted Previous Study Compare to the previous TTE done on 07-26-17 LV systolic function is lower. Estimated RVSP is higher. Signature Findings Technical Quality: Technically adequate exam. Rhythm/BPSinus tachycardia during the exam. Left Ventricle The left ventricle is chamber size (by vol index) is severely enlarged (female - LVED vol >80ml/m2). No rmal LV wall thickness. The following segment(s) ap pear akinetic: inferolateral . The following se gment(s) appear severely hypokinetic: an terolateral, basal-mid anterior . The other se gments are hypokinetic. Global LV systolic fu nction moderately reduced . LVEF by Levy's me thod of disk assessment is severely reduced (2 0-24%) . The inferolateral wall appears akinetic. Th e LVEF was measured using Levy's bi-plane me thod of disk . Degree of diastolic dysfunction (L AP assessment) is inconclusive due to tachycardia . Left AtriumLA size is severely enlarged (>48 ml/m2) . Right VentricleRV chamber size is moderately enlarged . Gl obal RV systolic function is mildly reduced . Right Atrium RA cavity size is mildly enlarged . Aortic Valve Mild AoV cusp thickening. Mi ld aortic regurgitation. Mitral Valve Mild MV leaflet thickening. Mi ld mitral annular calcification. Mo derate mitral regurgitation. Tricuspid ValveMild TV leaflet thickening. Mi ld to moderate tricuspid regurgitation. Es timated peak systolic PA pressure is 65-70 mmHg . Pulmonic Valve Mild PV leaflet thickening. No rmal PV structure and function by limited views an d Doppler. AortaAortic root size (SInus of Valsalva diameter) is no rmal . S/ P descending thoracic aorta repair. PericardiumA trace pericardial effusion is present . IVC/SVC/PA/PV/PleuralPulmonary vein flow is consistent with increased LA P . Th e estimated RA pressure by IVC dynamics 11-15mmHg . Mi ld ascites noted Chambers/Structures Left Atrium LA Volume: 119.57 mlLA Area: 30.26 cm^2 LA Vol. Index: 70 ml/m^2 Left Ventricle LVIDd: 6.4 cm LV Septum Diastolic: 0.98 cm LV PW Diastolic: 0.84 cm LVEDV Levy's:225.84 ml LVESV Levy's:157.23 ml LVEF Levy's: 30.4 % LVEDVI: 131 ml/m^2 LVESVI: 91 ml/m^2 LVOT Diameter: 2.06 cm Right Atrium RA Vol. (Sngl Plane): 83.5 ml Right Ventricle TAPSE: 1.5 cm Aorta Ao Root S of Margarita.: 2.86 cm Doppler/Quantitative Measurements Aortic Valve Peak Velocity: 1.46 m/sMean Velocity: 1.05 m/s Peak Gradient: 8.58 mmHg Mean Gradient: 4.94 mmHg AV Area (continuity): 1.99 cm^2 AV VTI: 19.97 cm AV DVI: 0.6 LVOT Peak Velocity: 0.91 m/s Peak Gradient: 3.31 mmHg Mean Velocity: 0.61 m/s Mean Gradient: 1.71 mmHg LVOT Diameter: 2.06 cmLVOT VTI: 11.92 cm LVOT Area: 3.33 cm^2LVOT SV:39.71 ml LVOT CO: 4.37 l/min LVOT CI: 2.54 l/min/m^2 Tricuspid Valve TR Velocity: 3.69 m/s TR Gradient: 54.51 mmHg Procedure Note Interface, External Ris In - 06/30/2018 11:09 AM CDT Transthoracic Echocardiography Report (TTE) Demographics Patient Name DANA, Date of Study 06/30/2018 DURGA Gender Female Visit Number [id number] Race Black Room Number 2C52 Number Date of 1945 Referring Physician Malathi Flanagan Age 72 year(s) 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 Clinical History HGB 10.0 HCT 34.4 % COPD, CAD, DM, HTN, STEMI, Emphysema, CHF s/p PCI (06/12/16, 07/18/17) s/p Repair, TEVAR (06/01/2018) Height: 65 inches Weight: 64.86 kg (143 lbs) BSA: 1.72 m^2 BMI: 23.8 kg/m^2 HR: 110 bpm BP: 107/100 mmHg Summary 1. LV is severely enlarged. LV function is severely reduced. LVEF is 20-24% 2. Diastology: Unable to comment due to significant MR 3. RV is moderately enlarged. Depressed RV function 4. Moderate tricuspid regurgitation. Estimated PASP is 65-70 mm Hg 5. Trace pericardial effusion noted Previous Study Compare to the previous TTE done on 07-26-17 LV systolic function is lower. Estimated RVSP is higher. Signature Findings Technical Quality: Technically adequate exam. Rhythm/BP Sinus tachycardia during the exam. Left Ventricle The left ventricle is chamber size (by vol index) is severely enlarged (female - LVED vol >80ml/m2). Normal LV wall thickness. The following segment(s) appear akinetic: inferolateral . The following segment(s) appear severely hypokinetic: anterolateral, basal-mid anterior . The other segments are hypokinetic. Global LV systolic function moderately reduced . LVEF by Levy's method of disk assessment is severely reduced (20-24%) . The inferolateral wall appears akinetic. The LVEF was measured using Levy's bi-plane method of disk . Degree of diastolic dysfunction (LAP assessment) is inconclusive due to tachycardia . Left Atrium LA size is severely enlarged (>48 ml/m2) . Right Ventricle RV chamber size is moderately enlarged . Global RV systolic function is mildly reduced . Right Atrium RA cavity size is mildly enlarged . Aortic Valve Mild AoV cusp thickening. Mild aortic regurgitation. Mitral Valve Mild MV leaflet thickening. Mild mitral annular calcification. Moderate mitral regurgitation. Tricuspid Valve Mild TV leaflet thickening. Mild to moderate tricuspid regurgitation. Estimated peak systolic PA pressure is 65-70 mmHg . Pulmonic Valve Mild PV leaflet thickening. Normal PV structure and function by limited views and Doppler. Aorta Aortic root size (SInus of Valsalva diameter) is normal . S/P descending thoracic aorta repair. Pericardium A trace pericardial effusion is present . IVC/SVC/PA/PV/Pleural Pulmonary vein flow is consistent with increased LAP . The estimated RA pressure by IVC dynamics 11-15mmHg . Mild ascites noted Chambers/Structures Left Atrium LA Volume: 119.57 ml LA Area: 30.26 cm^2 LA Vol. Index: 70 ml/m^2 Left Ventricle LVIDd: 6.4 cm LV Septum Diastolic: 0.98 cm LV PW Diastolic: 0.84 cm LVEDV Levy's:225.84 ml LVESV Levy's:157.23 ml LVEF Levy's: 30.4 % LVEDVI: 131 ml/m^2 LVESVI: 91 ml/m^2 LVOT Diameter: 2.06 cm Right Atrium RA Vol. (Sngl Plane): 83.5 ml Right Ventricle TAPSE: 1.5 cm Aorta Ao Root S of Margarita.: 2.86 cm Doppler/Quantitative Measurements Aortic Valve Peak Velocity: 1.46 m/s Mean Velocity: 1.05 m/s Peak Gradient: 8.58 mmHg Mean Gradient: 4.94 mmHg AV Area (continuity): 1.99 cm^2 AV VTI: 19.97 cm AV DVI: 0.6 LVOT Peak Velocity: 0.91 m/s Peak Gradient: 3.31 mmHg Mean Velocity: 0.61 m/s Mean Gradient: 1.71 mmHg LVOT Diameter: 2.06 cm LVOT VTI: 11.92 cm LVOT Area: 3.33 cm^2 LVOT SV:39.71 ml LVOT CO: 4.37 l/min LVOT CI: 2.54 l/min/m^2 Tricuspid Valve TR Velocity: 3.69 m/s TR Gradient: 54.51 mmHg Performing Organization Address [facility] Phone Number [facility] Lactic Acid, Arterial (06/30/2018 4:33 AM CDT)Only the most recent of2 resultswithin the time period is included. Lactate, Art 1.0 0.5 - 2.2 mmol/L [facility] Specimen Blood, Arterial Performing Organization Address [facility] Phone Number [address] [address] CENTER B-type Natriuretic Factor (BNP) (06/30/2018 3:10 AM CDT)Only the most recent of4 resultswithin the time period is included. BNP 14,363 (H) 0 - 100 pg/mL [facility] Specimen Blood Performing Organization Address [facility] Phone Number [address] [address] CENTER Prepare RBC (06/30/2018 1:27 AM CDT) CROSSMATCH COMPATIBLE SAFETRACE TX Unit ABO A Pos SAFETRACE TX UNIT NUMBER [id number] SAFETRACE TX Status RETURNED FROM ISSUE SAFETRACE TX Blood Bank Product RED BLOOD CELLS SAFETRACE TX PRODUCT CODE [id number] SAFETRACE TX CROSSMATCH COMPATIBLE SAFETRACE TX Unit ABO A Pos SAFETRACE TX UNIT NUMBER [id number] SAFETRACE TX Status RETURNED FROM ISSUE SAFETRACE TX Blood Bank Product RED BLOOD CELLS SAFETRACE TX PRODUCT CODE [id number] SAFETRACE TX CROSSMATCH COMPATIBLE SAFETRACE TX Unit ABO A Pos SAFETRACE TX UNIT NUMBER [id number] SAFETRACE TX Status RETURNED FROM ISSUE SAFETRACE TX Blood Bank Product RED BLOOD CELLS SAFETRACE TX PRODUCT CODE [id number] SAFETRACE TX CROSSMATCH COMPATIBLE SAFETRACE TX Unit ABO A Pos SAFETRACE TX UNIT NUMBER [id number] SAFETRACE TX Status RETURNED FROM ISSUE SAFETRACE TX Blood Bank Product RED BLOOD CELLS SAFETRACE TX PRODUCT CODE [id number] SAFETRACE TX Specimen Performing Organization Address [facility] Phone Number SAFETRACE TX POC ACTIVATED CLOTTING TIME (06/30/2018 12:52 AM CDT)Only the most recent of4 resultswithin the time period is included. Activated Clotting Time 147Comment: TESTED AT sec [address] [address] Specimen Blood Performing Organization Address [facility] Phone Number [address] [phone] CENTER Potassium-Stat Lab (06/29/2018 11:07 PM CDT) Potassium 4.4 3.6 - 5.5 meq/L [facility] Specimen Blood, Arterial Performing Organization Address [facility] Phone Number [address] [address] [phone] CENTER Sodium Na-Stat Lab (06/29/2018 11:07 PM CDT) Sodium 137 135 - 148 meq/L [facility] Specimen Blood, Arterial Performing Organization Address [facility] Phone Number [address] [phone] [place] Glucose-Stat Lab (06/29/2018 11:07 PM CDT) Glucose 97 70 - 110 mg/dL [facility] Specimen Blood, Arterial Performing Organization Address [facility] Phone Number [address] [address] [place] HGB/HCT (H&H)-Stat Lab (06/29/2018 11:07 PM CDT) Hemoglobin 10.7 (L) 12.0 - 15.0 g/dL [facility] Hematocrit 31.0 (L) 36.0 - 45.0 % [facility] Specimen Blood, Arterial Performing Organization Address [facility] Phone Number [address] [address] [phone] [place] Filter Ionized Calcium (06/29/2018 11:07 PM CDT) Filter Ionized Calcium 1.14 mmol/L [facility] Specimen Blood Narrative Performed At Reference Range: No Normals [facility] Performing Organization Address [facility] Phone Number [address] [address] [phone] [place]OR (06/29/2018 10:41 PM CDT) Narrative Performed At Nico Wong MD 06/29/2018 10:53 PM [place] Date: 06/29/2018 10:41 PM Sex: Female Location: OR Requesting Physician: Charles Ayala, IntubatedSedated Insertion: easy Probe Type: multiplane Modalities: 2D and CFM Valves Annulus Stenosis Area (cm3) Gradient Regurgitation Leaflet Morphology Leaflet Motion Not Visualized Aortic valve none Mitral valve trivial (1+) Tricuspid Ventricles Cavity size Dimension Hypertrophy Thrombus Global FXN EF Right ventricle dilated No severely impaired Left ventricle dilated No severely impaired Pre Intervention Summary: Post Intervention Summary: Procedure Note Nico Wong MD - 06/29/2018 10:41 PM CDT [place] Date: 06/29/2018 10:41 PM Sex: Female Location: OR Requesting Physician: Charles Ayala, DO Intubated Sedated Insertion: easy Probe Type: multiplane Modalities: 2D and CFM Valves Annulus Stenosis Area (cm3) Gradient Regurgitation Leaflet Morphology Leaflet Motion Not Visualized Aortic valve none Mitral valve trivial (1+) Tricuspid Ventricles Cavity size Dimension Hypertrophy Thrombus Global FXN EF Right ventricle dilated No severely impaired Left ventricle dilated No severely impaired Pre Intervention Summary: Post Intervention Summary: PULMONARY FUNCTION - SCAN (08/11/2017 12:52 PM CDT)Only the most recent of2 resultswithin the time period is included. Narrative Performed At EKG-SCANNED (08/10/2017 12:50 PM CDT) Narrative Performed At CARDIAC CATH REPORT - SCAN (08/04/2017 7:12 PM CDT) Narrative Performed At Iron, TIBC, % sat. (without ferritin) (08/04/2017 6:14 AM CDT) Iron 55 40 - 160 ug/dL [facility] TIBC 198 (L) 250 - 450 ug/dL [facility] Iron % Saturation 28 20 - 55 % [facility] Specimen Blood Performing Organization Address City/[facility]/Zipcode Phone Number [address] [address] CENTER Calcium, Ionized (08/04/2017 6:14 AM CDT) Calcium, Ion 1.11 (L) 1.12 - 1.27 mmol/L [facility] pH, Blood 7.39 [facility] Specimen Blood Performing Organization Address City/[facility]/Zipcode Phone Number [address] [address] CENTER Reticulocyte count (08/04/2017 6:14 AM CDT) % Retic 8.3 (H) 0.5 - 1.7 % [facility] Specimen Blood Performing Organization Address City/[facility]/Zipcode Phone Number [facility] [address] [place] [address] CENTER Ferritin (08/04/2017 6:14 AM CDT) Ferritin 445 (H) 5 - 275 ng/mL [facility] Specimen Blood Performing Organization Address [facility] Phone Number [facility] [address] [place] [address] CENTER after 08/04/2017 Insurance Payer Benefit Plan / Subscriber ID Type Phone Address Group [employer] - A[employer] MEDICARE xxxxxxxx [facility] Contracted [phone] [address] MEDICARE MGD HMO POS [id number] [place] [address] Advance Directives For more information, please contact:[address] [phone] Code Status Date Activated Date Inactivated Comments Full Code 06/29/2018 8:48 PM 07/22/2018 8:31 PM This code status was determined by: Patient Full Code 07/18/2017 10:01 AM 08/09/2017 4:37 PM This code status was determined by: Patient Full Code 06/11/2016 8:17 PM 06/15/2016 3:58 PM This code status was determined by: Patient
--- OUTSIDE RECORDS SUMMARY | 2018-08-05 18:52 | XMS REPORT ---
:1945 Author Organization [facility] Address [address] [place] [address] [address]. [address] [place] [address] Care Team Providers Name Role Phone DELILAH LANDERS Unavailable Unavailable BRITTNEY CLINTON Unavailable Unavailable DEDRA LUKE Unavailable Unavailable OZ WOODARD Unavailable Unavailable Problems This patient has no known problems. Allergies, Adverse Reactions, Alerts This patient has no known allergies or adverse reactions. Medications This patient has no known medications. Results Test Description Test Time Test Comments Text Results Atomic Results Result Comments POCT-GLUCOSE METER 2018-07-22 12:29:00 Test Item Value Reference Range Comments POC-GLUCOSE METER (BEAKER) (test 221 mg/dL 70-110 TESTED AT [address] pdbe=6907) [facility] [address] POCT-GLUCOSE [id number] 09:00:00 Test Item Value Reference Range Comments POC-GLUCOSE METER (BEAKER) 135 mg/dL 70-110 TESTED AT [address] (test kazp=0315) [facility] [address] RAD, CHEST, 1 VIEW, NON [id number] 08:57:00Reason for exam:->post opShould this be performed at the bedside?->YesFINAL REPORT RAD, CHEST, 1 VIEW, NON DEPT INDICATION: post op COMPARISON: Prior day' s exam FINDINGS: Portable frontal view of the chest. IMPRESSION: Support Lines: Stable. Lungs and pleura: Unchanged airspace and pleural opacities. No pneumothorax.Heart and mediastinum: Stable contours. Stable surgical changes.Additional findings: None. Signed: Trey Robles MDRepcamilla Verified Date/Time: 07/22/2018 08:57:17 Reading Location: [address] Neuro Reading Room Electronicallysigned by: TREY ROBLES MD on 07/22/2018 08:57 [id number] 07:51:00 Test Item Value Reference Range Comments PHOSPHORUS (BEAKER) (test vmdb=041) 3.9 mg/dL 2.3-4.7 [id number] 07:51:00 Test Item Value Reference Range Comments MAGNESIUM (BEAKER) (test amxy=393) 1.7 mg/dL 1.6-2.6 BASIC METABOLIC [id number] 07:51:00 Test Item Value Reference Range Comments SODIUM (BEAKER) (test 139 meq/L 136-145 xuyz=655) POTASSIUM (BEAKER) (test 4.4 meq/L 3.5-5.1 xyim=099) CHLORIDE (BEAKER) (test 102 meq/L 98-107 gdhd=186) CO2 (BEAKER) (test 30 meq/L 22-29 jife=262) BLOOD UREA NITROGEN 23 mg/dL 7-21 (BEAKER) (test dypn=648) CREATININE (BEAKER) (test 1.40 mg/dL 0.57-1.25 mgav=279) GLUCOSE RANDOM (BEAKER) 139 mg/dL 70-105 (test kpug=051) CALCIUM (BEAKER) (test 8.8 mg/dL 8.4-10.2 ikxc=464) EGFR (BEAKER) (test 45 mL/min/1.73 sq m ESTIMATED GFR IS NOT idru=4766) ACCURATE CREATININE CLEARANCE IN PREDICTING GLOMERULAR FILTRATION RATE. ESTIMATED GFR IS NOT APPLICABLE FOR DIALYSIS PATIENTS. [id number] 05:36:00 Test Item Value Reference Range Comments PARTIAL THROMBOPLASTIN TIME (BEAKER) (test 44.5 seconds 22.5-36.0 qkim=883) CBC (HEMOGRAM ONLY)2018-07-22 05:24:00 Test Item Value Reference Range Comments WHITE BLOOD CELL COUNT (BEAKER) (test jlos=338) 6.6 K/ L 3.5-10.5 RED BLOOD CELL COUNT (BEAKER) (test qjir=882) 2.45 M/ L 3.93-5.22 HEMOGLOBIN (BEAKER) (test xoob=453) 7.7 GM/DL 11.2-15.7 HEMATOCRIT (BEAKER) (test uxjl=821) 26.1 % 34.1-44.9 MEAN CORPUSCULAR VOLUME (BEAKER) (test ojrd=489) 106.5 fL 79.4-94.8 MEAN CORPUSCULAR HEMOGLOBIN (BEAKER) (test 31.4 pg 25.6-32.2 vdgu=521) MEAN CORPUSCULAR HEMOGLOBIN CONC (BEAKER) (test 29.5 GM/DL 32.2-35.5 vpxj=211) RED CELL DISTRIBUTION WIDTH (BEAKER) (test 18.0 % 11.7-14.4 mvpw=419) PLATELET COUNT (BEAKER) (test byhz=600) 227 K/CU MM 150-450 MEAN PLATELET VOLUME (BEAKER) (test yamx=830) 10.0 fL 9.4-12.3 NUCLEATED RED BLOOD CELLS (BEAKER) (test 0 /100 WBC 0-0 kaxr=540) POCT-GLUCOSE [id number] 21:36:00 Test Item Value Reference Range Comments POC-GLUCOSE METER (BEAKER) 283 mg/dL 70-110 TESTED AT [address] (test lfyv=9772) [place] [id number] POCT-GLUCOSE [id number] 18:26:00 Test Item Value Reference Range Comments POC-GLUCOSE METER (BEAKER) 123 mg/dL 70-110 TESTED AT [address] (test qash=4582) [place] [address] POCT-GLUCOSE [id number] 14:04:00 Test Item Value Reference Range Comments POC-GLUCOSE METER (BEAKER) 152 mg/dL 70-110 TESTED AT [address] (test nefg=7933) [place] [address] POCT-GLUCOSE [id number] 12:52:00 Test Item Value Reference Range Comments POC-GLUCOSE METER (BEAKER) 228 mg/dL 70-110 TESTED AT [address] (test eikl=8483) [facility] [address] RAD, CHEST, 1 VIEW, NON [id number] 09:40:00Reason for exam:->post opShould this be performed at the bedside?->YesFINAL REPORT Comparison: 07/20/2018 TECHNIQUE: Single view of the chest FINDINGS: There are nonspecific prominent interstitial markings bilaterally. Trace pleural effusions are seen. No gross new lung parenchymal changes. Cardiac silhouette is enlarged. Thoracic aortic stent grafts noted. Right-sided PICC line is stable. Signed: Olayinka Hampton MDReport Verified Date/Time: 07/21/2018 09: 40:18 Reading Location: [facility] Radiology Reading Room POCT-GLUCOSE [id number] 09:10: 00 Test Item Value Reference Range Comments POC-GLUCOSE METER (BEAKER) 239 mg/dL 70-110 TESTED AT [facility] [address] [facility] (test gomn=8391) [facility] [address] [id number] 06:51:00 Test Item Value Reference Range Comments PHOSPHORUS (BEAKER) (test jaft=305) 3.4 mg/dL 2.3-4.7 [id number] 06:51:00 Test Item Value Reference Range Comments MAGNESIUM (BEAKER) (test gfvc=245) 1.8 mg/dL 1.6-2.6 BASIC METABOLIC [id number] 06:51:00 Test Item Value Reference Range Comments SODIUM (BEAKER) (test 137 meq/L 136-145 omzh=279) POTASSIUM (BEAKER) (test 4.4 meq/L 3.5-5.1 zehm=361) CHLORIDE (BEAKER) (test 100 meq/L 98-107 frff=670) CO2 (BEAKER) (test 31 meq/L 22-29 zmla=301) BLOOD UREA NITROGEN 23 mg/dL 7-21 (BEAKER) (test qtmt=494) CREATININE (BEAKER) (test 1.40 mg/dL 0.57-1.25 fuag=001) GLUCOSE RANDOM (BEAKER) 146 mg/dL 70-105 (test qwmy=567) CALCIUM (BEAKER) (test 9.2 mg/dL 8.4-10.2 bfzj=769) EGFR (BEAKER) (test 45 mL/min/1.73 sq m ESTIMATED GFR IS NOT oxbm=2060) ACCURATE CREATININE CLEARANCE IN PREDICTING GLOMERULAR FILTRATION RATE. ESTIMATED GFR IS NOT APPLICABLE FOR DIALYSIS PATIENTS. [id number] 06:47:00 Test Item Value Reference Range Comments PARTIAL THROMBOPLASTIN TIME (BEAKER) (test 51.7 seconds 22.5-36.0 xvfs=178) CBC (HEMOGRAM ONLY)2018-07-21 06:28:00 Test Item Value Reference Range Comments WHITE BLOOD CELL COUNT (BEAKER) (test ykvg=102) 5.4 K/ L 3.5-10.5 RED BLOOD CELL COUNT (BEAKER) (test xzdm=054) 2.66 M/ L 3.93-5.22 HEMOGLOBIN (BEAKER) (test fvbk=106) 8.2 GM/DL 11.2-15.7 HEMATOCRIT (BEAKER) (test sthn=789) 28.3 % 34.1-44.9 MEAN CORPUSCULAR VOLUME (BEAKER) (test nhpl=913) 106.4 fL 79.4-94.8 MEAN CORPUSCULAR HEMOGLOBIN (BEAKER) (test 30.8 pg 25.6-32.2 tmgr=503) MEAN CORPUSCULAR HEMOGLOBIN CONC (BEAKER) (test 29.0 GM/DL 32.2-35.5 sgos=493) RED CELL DISTRIBUTION WIDTH (BEAKER) (test 18.3 % 11.7-14.4 rmpw=658) PLATELET COUNT (BEAKER) (test uldh=472) 211 K/CU MM 150-450 MEAN PLATELET VOLUME (BEAKER) (test ocjc=384) 10.3 fL 9.4-12.3 NUCLEATED RED BLOOD CELLS (BEAKER) (test 0 /100 WBC 0-0 ujez=700) POCT-GLUCOSE [id number] 21:18:00 Test Item Value Reference Range Comments POC-GLUCOSE METER (BEAKER) 245 mg/dL 70-110 TESTED AT [address] (test pwcr=9599) [facility] [address] POCT-GLUCOSE [id number] 18:12:00 Test Item Value Reference Range Comments POC-GLUCOSE METER (BEAKER) 158 mg/dL 70-110 TESTED AT [address] (test dbkb=2716) [facility] [address] POCT-GLUCOSE [id number] 12:46:00 Test Item Value Reference Range Comments POC-GLUCOSE METER (BEAKER) 178 mg/dL 70-110 TESTED AT [address] (test vrtp=2768) [facility] [address] RAD, CHEST, 1 VIEW, NON [id number] 08:43:00Reason for exam:->post opShould this be performed at the bedside?->YesFINAL REPORT Chest one view. Clinical history: post op Comparison: 2018Discussion: A frontal chest is provided. Cardiomediastinal contours are unchanged. Lines and tubesare in stable position. Stable appearance of vascular congestion and interstitial edema. Small bilateral pleural effusions. No pneumothorax. Signed: Morgan Chengeport Verified Date/Time: 07/20/2018 08:43 :10 Reading Location: [facility] [address] Radiology Reading Room POCT-GLUCOSE [id number] 08:05:00 Test Item Value Reference Range Comments POC-GLUCOSE METER (BEAKER) 114 mg/dL 70-110 TESTED AT [facility] [address] [facility] (test rial=0289) [facility] [address] [id number] 06:55:00 Test Item Value Reference Range Comments PHOSPHORUS (BEAKER) (test ncaj=229) 3.4 mg/dL 2.3-4.7 [id number] 06:55:00 Test Item Value Reference Range Comments MAGNESIUM (BEAKER) (test jxqh=477) 1.5 mg/dL 1.6-2.6 BASIC METABOLIC [id number] 06:55:00 Test Item Value Reference Range Comments SODIUM (BEAKER) (test 137 meq/L 136-145 ivos=491) POTASSIUM (BEAKER) (test 4.4 meq/L 3.5-5.1 xnor=110) CHLORIDE (BEAKER) (test 101 meq/L 98-107 bqsb=964) CO2 (BEAKER) (test 27 meq/L 22-29 pohj=091) BLOOD UREA NITROGEN 23 mg/dL 7-21 (BEAKER) (test iprh=512) CREATININE (BEAKER) (test 1.28 mg/dL 0.57-1.25 iisr=487) GLUCOSE RANDOM (BEAKER) 150 mg/dL 70-105 (test tyxe=591) CALCIUM (BEAKER) (test 9.0 mg/dL 8.4-10.2 rcat=068) EGFR (BEAKER) (test 50 mL/min/1.73 sq m ESTIMATED GFR IS NOT giwy=7575) ACCURATE CREATININE CLEARANCE IN PREDICTING GLOMERULAR FILTRATION RATE. ESTIMATED GFR IS NOT APPLICABLE FOR DIALYSIS PATIENTS. [id number] 06:28:00 Test Item Value Reference Range Comments PARTIAL THROMBOPLASTIN TIME (BEAKER) (test 44.5 seconds 22.5-36.0 dmyn=734) CBC (HEMOGRAM ONLY)2018-07-20 06:19:00 Test Item Value Reference Range Comments WHITE BLOOD CELL COUNT (BEAKER) (test kbaw=674) 5.5 K/ L 3.5-10.5 RED BLOOD CELL COUNT (BEAKER) (test qkcp=334) 2.58 M/ L 3.93-5.22 HEMOGLOBIN (BEAKER) (test ncla=630) 7.9 GM/DL 11.2-15.7 HEMATOCRIT (BEAKER) (test dumn=250) 27.1 % 34.1-44.9 MEAN CORPUSCULAR VOLUME (BEAKER) (test tzft=812) 105.0 fL 79.4-94.8 MEAN CORPUSCULAR HEMOGLOBIN (BEAKER) (test 30.6 pg 25.6-32.2 wxdz=376) MEAN CORPUSCULAR HEMOGLOBIN CONC (BEAKER) (test 29.2 GM/DL 32.2-35.5 szfl=286) RED CELL DISTRIBUTION WIDTH (BEAKER) (test 18.5 % 11.7-14.4 yxcx=948) PLATELET COUNT (BEAKER) (test qtic=085) 189 K/CU MM 150-450 MEAN PLATELET VOLUME (BEAKER) (test tzpm=730) 9.9 fL 9.4-12.3 NUCLEATED RED BLOOD CELLS (BEAKER) (test 0 /100 WBC 0-0 novb=831) POCT-GLUCOSE [id number] 00:43:00 Test Item Value Reference Range Comments POC-GLUCOSE METER (BEAKER) 135 mg/dL 70-110 TESTED AT [address] (test owoo=0962) [facility] [address] POCT-GLUCOSE [id number] 21:19:00 Test Item Value Reference Range Comments POC-GLUCOSE METER (BEAKER) 284 mg/dL 70-110 TESTED AT [address] (test nlpv=3637) [facility] [address] POCT-GLUCOSE [id number] 17:54:00 Test Item Value Reference Range Comments POC-GLUCOSE METER (BEAKER) 146 mg/dL 70-110 TESTED AT [facility] [address] [facility] (test ggqr=9564) [facility] [address] POCT-GLUCOSE [id number] 14:15:00 Test Item Value Reference Range Comments POC-GLUCOSE METER (BEAKER) 230 mg/dL 70-110 TESTED AT [place] [id number] [facility] (test iuji=7346) [facility] [address] RAD, CHEST, 1 VIEW, NON [id number] 08:30:00Reason for exam:->post opShould this be performed at the bedside?->YesFINAL REPORT INDICATION: post op COMPARISON:July 18 TECHNIQUE: Chest radiograph, single view, portable technique. FINDINGS / IMPRESSION: Descending aortic stent , enlarged heart shadow, and probable mild venous congestion and edema are again demonstrated. No apical cap or pneumothorax is demonstrated. Probable small right pleural effusion. Right PICC line appears in good position. Signed: Geo Rioc MDReport Verified Date/Time: 07/19/2018 08:30:21 Reading Location: [facility] [address] Radiology Reading Room POCT-GLUCOSE [id number] 07:30:00 Test Item Value Reference Range Comments POC-GLUCOSE METER (BEAKER) 177 mg/dL 70-110 TESTED AT [facility] [address] [facility] (test ejwc=5969) [facility] [address] [id number] 05:20:00 Test Item Value Reference Range Comments PHOSPHORUS (BEAKER) (test ngdm=506) 3.5 mg/dL 2.3-4.7 [id number] 05:20:00 Test Item Value Reference Range Comments MAGNESIUM (BEAKER) (test ckqi=356) 1.8 mg/dL 1.6-2.6 BASIC METABOLIC [id number] 05:20:00 Test Item Value Reference Range Comments SODIUM (BEAKER) (test 142 meq/L 136-145 twzg=264) POTASSIUM (BEAKER) (test 4.5 meq/L 3.5-5.1 qdzr=637) CHLORIDE (BEAKER) (test 107 meq/L 98-107 jswn=775) CO2 (BEAKER) (test 31 meq/L 22-29 ykvk=455) BLOOD UREA NITROGEN 25 mg/dL 7-21 (BEAKER) (test fzdw=306) CREATININE (BEAKER) (test 1.35 mg/dL 0.57-1.25 pekb=468) GLUCOSE RANDOM (BEAKER) 165 mg/dL 70-105 (test qtma=403) CALCIUM (BEAKER) (test 9.1 mg/dL 8.4-10.2 fcdo=518) EGFR (BEAKER) (test 47 mL/min/1.73 sq m ESTIMATED GFR IS NOT hndm=6294) ACCURATE CREATININE CLEARANCE IN PREDICTING GLOMERULAR FILTRATION RATE. ESTIMATED GFR IS NOT APPLICABLE FOR DIALYSIS PATIENTS. [id number] 05:17:00 Test Item Value Reference Range Comments PARTIAL THROMBOPLASTIN TIME (BEAKER) (test 44.9 seconds 22.5-36.0 jfzp=670) PROTHROMBIN [id number] 05:16:00 Test Item Value Reference Range Comments PROTIME (BEAKER) (test hkit=230) 13.9 seconds 11.7-14.7 INR (BEAKER) (test dxko=650) 1.1 <=5.9 RECOMMENDED COUMADIN/WARFARIN INR THERAPY RANGESSTANDARD DOSE: 2.0 - 3.0 Includes: PROPHYLAXIS forvenous thrombosis, systemic embolization; TREATMENT for venous thrombosis and/or pulmonary embolus.HIGH RISK: Target INR is 2.5-3.5 for patients with mechanical heart valves.CBC (HEMOGRAM ONLY)2018-07-19 05:02:00 Test Item Value Reference Range Comments WHITE BLOOD CELL COUNT (BEAKER) (test yqdn=901) 6.3 K/ L 3.5-10.5 RED BLOOD CELL COUNT (BEAKER) (test namu=188) 2.59 M/ L 3.93-5.22 HEMOGLOBIN (BEAKER) (test ahda=354) 8.1 GM/DL 11.2-15.7 HEMATOCRIT (BEAKER) (test oylc=272) 27.6 % 34.1-44.9 MEAN CORPUSCULAR VOLUME (BEAKER) (test ieqq=450) 106.6 fL 79.4-94.8 MEAN CORPUSCULAR HEMOGLOBIN (BEAKER) (test 31.3 pg 25.6-32.2 xmmu=159) MEAN CORPUSCULAR HEMOGLOBIN CONC (BEAKER) (test 29.3 GM/DL 32.2-35.5 nsna=756) RED CELL DISTRIBUTION WIDTH (BEAKER) (test 18.6 % 11.7-14.4 eqro=641) PLATELET COUNT (BEAKER) (test nvfb=625) 186 K/CU MM 150-450 MEAN PLATELET VOLUME (BEAKER) (test vzsv=079) 9.7 fL 9.4-12.3 NUCLEATED RED BLOOD CELLS (BEAKER) (test 0 /100 WBC 0-0 yfxl=510) POCT-GLUCOSE [id number] 23:14:00 Test Item Value Reference Range Comments POC-GLUCOSE METER (BEAKER) 173 mg/dL 70-110 TESTED AT [address] (test uwvg=0175) [place] [id number] POCT-GLUCOSE [id number] 21:47:00 Test Item Value Reference Range Comments POC-GLUCOSE METER (BEAKER) 237 mg/dL 70-110 TESTED AT [address] (test xtvs=8891) [place] [address] POCT-GLUCOSE [id number] 18:16:00 Test Item Value Reference Range Comments POC-GLUCOSE METER (BEAKER) 234 mg/dL 70-110 TESTED AT [address] (test ivya=7586) [place] [address] POCT-GLUCOSE [id number] 08:34:00 Test Item Value Reference Range Comments POC-GLUCOSE METER (BEAKER) 127 mg/dL 70-110 TESTED AT [address] (test bsmt=9638) [place] [address] RAD, CHEST, 1 VIEW, NON [id number] 08:16:00Reason for exam:->post opShould this be performed at the bedside?->YesFINAL REPORT Chest one view. Clinical history: post op Comparison: 2018Discussion: A frontal chest is provided. Cardiac silhouette is enlarged. Aortic stent is again noted. There is mild vascular congestion and interstitial edema. Streaky bibasilar atelectasis or consolidation similar to the prior exam. Small right effusion. No pneumothorax. Signed: Skylar, Morgan MDReport Verified Date/Time: 07/18/2018 08:16:56 Reading Location: [facility] Radiology Reading Room 08: 16 AMCBC (HEMOGRAM ONLY)2018-07-18 04:48:00 Test Item Value Reference Range Comments WHITE BLOOD CELL COUNT (BEAKER) (test rnnc=032) 7.8 K/ L 3.5-10.5 RED BLOOD CELL COUNT (BEAKER) (test cjsd=771) 2.64 M/ L 3.93-5.22 HEMOGLOBIN (BEAKER) (test ghhi=519) 8.1 GM/DL 11.2-15.7 HEMATOCRIT (BEAKER) (test hbfl=398) 28.1 % 34.1-44.9 MEAN CORPUSCULAR VOLUME (BEAKER) (test vcqj=904) 106.4 fL 79.4-94.8 MEAN CORPUSCULAR HEMOGLOBIN (BEAKER) (test 30.7 pg 25.6-32.2 ryef=516) MEAN CORPUSCULAR HEMOGLOBIN CONC (BEAKER) (test 28.8 GM/DL 32.2-35.5 inkr=010) RED CELL DISTRIBUTION WIDTH (BEAKER) (test 18.9 % 11.7-14.4 nrjp=404) PLATELET COUNT (BEAKER) (test idmb=482) 197 K/CU MM 150-450 MEAN PLATELET VOLUME (BEAKER) (test xtej=612) 10.2 fL 9.4-12.3 NUCLEATED RED BLOOD CELLS (BEAKER) (test 0 /100 WBC 0-0 jnco=211) [id number] 04:40:00 Test Item Value Reference Range Comments PHOSPHORUS (BEAKER) (test xkqf=888) 3.6 mg/dL 2.3-4.7 [id number] 04:40:00 Test Item Value Reference Range Comments MAGNESIUM (BEAKER) (test zqcb=895) 1.8 mg/dL 1.6-2.6 BASIC METABOLIC [id number] 04:40:00 Test Item Value Reference Range Comments SODIUM (BEAKER) (test 140 meq/L 136-145 svnc=633) POTASSIUM (BEAKER) (test 4.5 meq/L 3.5-5.1 lngt=770) CHLORIDE (BEAKER) (test 106 meq/L 98-107 yttc=884) CO2 (BEAKER) (test 26 meq/L 22-29 nxck=953) BLOOD UREA NITROGEN 23 mg/dL 7-21 (BEAKER) (test eduk=759) CREATININE (BEAKER) (test 1.34 mg/dL 0.57-1.25 gfpg=419) GLUCOSE RANDOM (BEAKER) 105 mg/dL 70-105 (test yona=814) CALCIUM (BEAKER) (test 9.1 mg/dL 8.4-10.2 fmoo=947) EGFR (BEAKER) (test 47 mL/min/1.73 sq m ESTIMATED GFR IS NOT tuag=1980) ACCURATE CREATININE CLEARANCE IN PREDICTING GLOMERULAR FILTRATION RATE. ESTIMATED GFR IS NOT APPLICABLE FOR DIALYSIS PATIENTS. [id number] 04:22:00 Test Item Value Reference Range Comments PARTIAL THROMBOPLASTIN TIME (BEAKER) (test 56.8 seconds 22.5-36.0 tyqf=711) PROTHROMBIN TIME/[id number] 04:20:00 Test Item Value Reference Range Comments PROTIME (BEAKER) (test llfs=754) 13.9 seconds 11.7-14.7 INR (BEAKER) (test nxeb=651) 1.0 <=5.9 RECOMMENDED COUMADIN/WARFARIN INR THERAPY RANGESSTANDARD DOSE: 2.0 - 3.0 Includes: PROPHYLAXIS forvenous thrombosis, systemic embolization; TREATMENT for venous thrombosis and/or pulmonary embolus.HIGH RISK: Target INR is 2.5-3.5 for patients with mechanical heart valves.POCT-GLUCOSE [id number] 20:54:00 Test Item Value Reference Range Comments POC-GLUCOSE METER (BEAKER) 311 mg/dL 70-110 Patient on insulin Drip/TESTED (test crtp=9103) AT [place] [id number] [facility] [address] POCT-GLUCOSE [id number] 18:21:00 Test Item Value Reference Range Comments POC-GLUCOSE METER (BEAKER) 186 mg/dL 70-110 TESTED AT [address] (test spyd=9536) [facility] [address] POCT-GLUCOSE [id number] 13:16:00 Test Item Value Reference Range Comments POC-GLUCOSE METER (BEAKER) 153 mg/dL 70-110 TESTED AT [address] (test jczc=8316) [facility] [address] POCT-GLUCOSE [id number] 09:26:00 Test Item Value Reference Range Comments POC-GLUCOSE METER (BEAKER) 128 mg/dL 70-110 TESTED AT [facility] [address] [facility] (test vhui=5173) [facility] [address] RAD, CHEST, 1 VIEW, NON [id number] 07:39:00Reason for exam:->post opShould this be performed at the bedside?->YesFINAL REPORT Follow up Chest radiograph Clinical History: PostopComparison: JulyViews: One AP lordotic Chest x-ray:The cardiac and mediastinal silhouettes are unchanged. There is no evidence of a pneumothorax. There is evidence of a small right pleural effusion.There is no evidence of overt cardiac failure. There is evidence of a right lower lung zone focal parenchymal opacity. A right PICC line is satisfactorily positioned and unchanged. Postprocedural changes are visualized overlying the descending thoracic aorta Impression:Interval development of aright-sided pleural effusion with airspace opacification which may represent compressive atelectasisor developing pneumonitis. Signed: Azul Sam Verified Date/Time: 2018 07:39:00 Reading Location: [facility] [address] Radiology Reading Room Electronically signed by: AZUL SAM M.D.on 07/17/2018 07:39 [id number] 06:22:00 Test Item Value Reference Range Comments PHOSPHORUS (BEAKER) (test usuy=588) 3.6 mg/dL 2.3-4.7 [id number] 06:22:00 Test Item Value Reference Range Comments MAGNESIUM (BEAKER) (test gflq=516) 1.9 mg/dL 1.6-2.6 BASIC METABOLIC [id number] 06:22:00 Test Item Value Reference Range Comments SODIUM (BEAKER) (test 142 meq/L 136-145 otxo=877) POTASSIUM (BEAKER) (test 4.6 meq/L 3.5-5.1 satf=789) CHLORIDE (BEAKER) (test 106 meq/L 98-107 ftoz=554) CO2 (BEAKER) (test 30 meq/L 22-29 khhk=181) BLOOD UREA NITROGEN 23 mg/dL 7-21 (BEAKER) (test qhxr=932) CREATININE (BEAKER) (test 1.31 mg/dL 0.57-1.25 mfun=948) GLUCOSE RANDOM (BEAKER) 88 mg/dL 70-105 (test annj=420) CALCIUM (BEAKER) (test 8.9 mg/dL 8.4-10.2 imtu=348) EGFR (BEAKER) (test 49 mL/min/1.73 sq m ESTIMATED GFR IS NOT bdup=8035) ACCURATE CREATININE CLEARANCE IN PREDICTING GLOMERULAR FILTRATION RATE. ESTIMATED GFR IS NOT APPLICABLE FOR DIALYSIS PATIENTS. [id number] 05:10:00 Test Item Value Reference Range Comments PARTIAL THROMBOPLASTIN TIME (BEAKER) (test 52.0 seconds 22.5-36.0 zzzc=884) PROTHROMBIN TIME/[id number] 05:09:00 Test Item Value Reference Range Comments PROTIME (BEAKER) (test aljv=924) 14.3 seconds 11.7-14.7 INR (BEAKER) (test jxsq=340) 1.1 <=5.9 RECOMMENDED COUMADIN/WARFARIN INR THERAPY RANGESSTANDARD DOSE: 2.0 - 3.0 Includes: PROPHYLAXIS forvenous thrombosis, systemic embolization; TREATMENT for venous thrombosis and/or pulmonary embolus.HIGH RISK: Target INR is 2.5-3.5 for patients with mechanical heart valves.CBC (HEMOGRAM ONLY)2018-07-17 04:55:00 Test Item Value Reference Range Comments WHITE BLOOD CELL COUNT (BEAKER) (test cqsy=636) 7.5 K/ L 3.5-10.5 RED BLOOD CELL COUNT (BEAKER) (test ijxk=467) 2.63 M/ L 3.93-5.22 HEMOGLOBIN (BEAKER) (test wiqg=339) 8.1 GM/DL 11.2-15.7 HEMATOCRIT (BEAKER) (test wgxk=985) 27.7 % 34.1-44.9 MEAN CORPUSCULAR VOLUME (BEAKER) (test fitk=778) 105.3 fL 79.4-94.8 MEAN CORPUSCULAR HEMOGLOBIN (BEAKER) (test 30.8 pg 25.6-32.2 rhah=919) MEAN CORPUSCULAR HEMOGLOBIN CONC (BEAKER) (test 29.2 GM/DL 32.2-35.5 edqv=184) RED CELL DISTRIBUTION WIDTH (BEAKER) (test 18.9 % 11.7-14.4 czet=472) PLATELET COUNT (BEAKER) (test aynb=178) 215 K/CU MM 150-450 MEAN PLATELET VOLUME (BEAKER) (test nefj=037) 10.2 fL 9.4-12.3 NUCLEATED RED BLOOD CELLS (BEAKER) (test 0 /100 WBC 0-0 spyj=012) POCT-GLUCOSE [id number] 21:30:00 Test Item Value Reference Range Comments POC-GLUCOSE METER (BEAKER) 217 mg/dL 70-110 TESTED AT [address] (test iika=1465) [place] [id number] POCT-GLUCOSE [id number] 18:00:00 Test Item Value Reference Range Comments POC-GLUCOSE METER (BEAKER) 192 mg/dL 70-110 TESTED AT [address] (test nalh=0995) [place] [id number] POCT-GLUCOSE [id number] 14:32:00 Test Item Value Reference Range Comments POC-GLUCOSE METER (BEAKER) 203 mg/dL 70-110 TESTED AT [address] (test zffi=5711) [place] [id number] POCT-GLUCOSE [id number] 09:41:00 Test Item Value Reference Range Comments POC-GLUCOSE METER (BEAKER) 113 mg/dL 70-110 TESTED AT [address] (test ycgv=7175) [place] [id number] 08:49:00 Test Item Value Reference Range Comments PHOSPHORUS (BEAKER) (test mcik=052) 3.9 mg/dL 2.3-4.7 [id number] 08:49:00 Test Item Value Reference Range Comments MAGNESIUM (BEAKER) (test rvro=915) 2.0 mg/dL 1.6-2.6 BASIC METABOLIC [id number] 08:49:00 Test Item Value Reference Range Comments SODIUM (BEAKER) (test 142 meq/L 136-145 uazi=024) POTASSIUM (BEAKER) (test 4.5 meq/L 3.5-5.1 kkzp=050) CHLORIDE (BEAKER) (test 105 meq/L 98-107 vwer=671) CO2 (BEAKER) (test 30 meq/L 22-29 chhx=527) BLOOD UREA NITROGEN 24 mg/dL 7-21 (BEAKER) (test bjhb=757) CREATININE (BEAKER) (test 1.25 mg/dL 0.57-1.25 wbiy=987) GLUCOSE RANDOM (BEAKER) 80 mg/dL 70-105 (test qcom=294) CALCIUM (BEAKER) (test 8.8 mg/dL 8.4-10.2 sixr=336) EGFR (BEAKER) (test 51 mL/min/1.73 sq m ESTIMATED GFR IS NOT zxjs=3784) ACCURATE CREATININE CLEARANCE IN PREDICTING GLOMERULAR FILTRATION RATE. ESTIMATED GFR IS NOT APPLICABLE FOR DIALYSIS PATIENTS. RAD, CHEST, 1 VIEW, NON [id number] 08:09:00Reason for exam:->post opShould this be performed at the bedside?->YesFINAL REPORT Chest, one view HISTORY: Postoperative assessment Comparison: 2018 Findings: Lungs: Mild bilateral interstitial opacities, unchanged from prior study. Likely pulmonary venous congestion. Heart: Moderate cardiomegaly, unchanged. Pleura: Small bilateral pleural effusions, unchanged. No pneumothorax. Bones: Unremarkable. Lines/tubes: Unchanged in position. IMPRESSION: No significant interval change. Signed: Luis Lopez Verified Date/Time: 07/16/2018 08:09:34 Reading Location: [address] Body Reading Room 08: 09 AMPROTHROMBIN TIME/[id number] 05:46:00 Test Item Value Reference Range Comments PROTIME (BEAKER) (test syre=180) 14.0 seconds 11.7-14.7 INR (BEAKER) (test nscf=491) 1.1 <=5.9 RECOMMENDED COUMADIN/WARFARIN INR THERAPY RANGESSTANDARD DOSE: 2.0 - 3.0 Includes: PROPHYLAXIS forvenous thrombosis, systemic embolization; TREATMENT for venous thrombosis and/or pulmonary embolus.HIGH RISK: Target INR is 2.5-3.5 for patients with mechanical heart valves.[id number] 05:46:00 Test Item Value Reference Range Comments PARTIAL THROMBOPLASTIN TIME (BEAKER) (test 54.5 seconds 22.5-36.0 vzno=171) CBC (HEMOGRAM ONLY)2018-07-16 05:33:00 Test Item Value Reference Range Comments WHITE BLOOD CELL COUNT (BEAKER) (test dcbb=339) 6.6 K/ L 3.5-10.5 RED BLOOD CELL COUNT (BEAKER) (test dsiw=845) 2.75 M/ L 3.93-5.22 HEMOGLOBIN (BEAKER) (test ydss=434) 8.5 GM/DL 11.2-15.7 HEMATOCRIT (BEAKER) (test xrje=727) 28.5 % 34.1-44.9 MEAN CORPUSCULAR VOLUME (BEAKER) (test tayz=078) 103.6 fL 79.4-94.8 MEAN CORPUSCULAR HEMOGLOBIN (BEAKER) (test 30.9 pg 25.6-32.2 ntyp=898) MEAN CORPUSCULAR HEMOGLOBIN CONC (BEAKER) (test 29.8 GM/DL 32.2-35.5 snud=603) RED CELL DISTRIBUTION WIDTH (BEAKER) (test 19.1 % 11.7-14.4 cehm=797) PLATELET COUNT (BEAKER) (test sxtl=681) 240 K/CU MM 150-450 MEAN PLATELET VOLUME (BEAKER) (test qkdv=309) 10.1 fL 9.4-12.3 NUCLEATED RED BLOOD CELLS (BEAKER) (test 0 /100 WBC 0-0 kroy=924) POCT-GLUCOSE [id number] 21:14:00 Test Item Value Reference Range Comments POC-GLUCOSE METER (BEAKER) 152 mg/dL 70-110 TESTED AT [address] (test kceu=4808) [facility] [address] POCT-GLUCOSE [id number] 19:03:00 Test Item Value Reference Range Comments POC-GLUCOSE METER (BEAKER) 173 mg/dL 70-110 TESTED AT [address] (test nddn=7466) [facility] [address] POCT-GLUCOSE [id number] 13:33:00 Test Item Value Reference Range Comments POC-GLUCOSE METER (BEAKER) 274 mg/dL 70-110 TESTED AT [address] (test ygmy=4398) [facility] [address] POCT-GLUCOSE [id number] 10:28:00 Test Item Value Reference Range Comments POC-GLUCOSE METER (BEAKER) 131 mg/dL 70-110 TESTED AT [place] [id number] [facility] (test xwwb=4637) [facility] [address] POCT-GLUCOSE [id number] 06:41:00 Test Item Value Reference Range Comments POC-GLUCOSE METER (BEAKER) 152 mg/dL 70-110 TESTED AT [place] [id number] [facility] (test dfig=3533) [facility] [address] [id number] 04:02:00 Test Item Value Reference Range Comments PHOSPHORUS (BEAKER) (test oewb=500) 3.6 mg/dL 2.3-4.7 [id number] 04:02:00 Test Item Value Reference Range Comments MAGNESIUM (BEAKER) (test imcj=327) 2.1 mg/dL 1.6-2.6 BASIC METABOLIC [id number] 04:02:00 Test Item Value Reference Range Comments SODIUM (BEAKER) (test 135 meq/L 136-145 idqn=741) POTASSIUM (BEAKER) (test 4.6 meq/L 3.5-5.1 exhh=985) CHLORIDE (BEAKER) (test 101 meq/L 98-107 ikvs=009) CO2 (BEAKER) (test 27 meq/L 22-29 kdrm=114) BLOOD UREA NITROGEN 23 mg/dL 7-21 (BEAKER) (test dreq=677) CREATININE (BEAKER) (test 1.37 mg/dL 0.57-1.25 sbfu=974) GLUCOSE RANDOM (BEAKER) 187 mg/dL 70-105 (test gafs=494) CALCIUM (BEAKER) (test 8.4 mg/dL 8.4-10.2 rjll=528) EGFR (BEAKER) (test 46 mL/min/1.73 sq m ESTIMATED GFR IS NOT jlrv=7141) ACCURATE CREATININE CLEARANCE IN PREDICTING GLOMERULAR FILTRATION RATE. ESTIMATED GFR IS NOT APPLICABLE FOR DIALYSIS PATIENTS. [id number] 03:57:00 Test Item Value Reference Range Comments PARTIAL THROMBOPLASTIN TIME (BEAKER) (test 44.5 seconds 22.5-36.0 ramb=357) PROTHROMBIN [id number] 03:56:00 Test Item Value Reference Range Comments PROTIME (BEAKER) (test cocd=488) 13.4 seconds 11.7-14.7 INR (BEAKER) (test vang=584) 1.0 <=5.9 RECOMMENDED COUMADIN/WARFARIN INR THERAPY RANGESSTANDARD DOSE: 2.0 - 3.0 Includes: PROPHYLAXIS forvenous thrombosis, systemic embolization; TREATMENT for venous thrombosis and/or pulmonary embolus.HIGH RISK: Target INR is 2.5-3.5 for patients with mechanical heart valves.RAD, CHEST, 1 VIEW, NON [id number] 03:40:00Reason for exam:->post opShould this be performed at the bedside?- >YesFINAL REPORT RAD, CHEST, 1 VIEW, NON DEPT INDICATION: post op COMPARISON: Prior day's exam FINDINGS: Portable frontal view of the chest. IMPRESSION: Support Lines: Right-sidedPICC and vascular graft are unchanged. Lungs and pleura: Mild interstitial edema No pneumothorax.Heart and mediastinum: Stable contours. Stable surgical changes.Additional findings: None. Signed: Trey Robles MDReport Verified Date/Time: 07/15/2018 03:40:13 Reading Location: [address] Neuro Reading Room 03: 40 [facility] [place] (HEMO[facility] ONLY)2018-07-15 03:33:00 Test Item Value Reference Range Comments WHITE BLOOD CELL COUNT (BEAKER) (test yiqp=391) 7.2 K/ L 3.5-10.5 RED BLOOD CELL COUNT (BEAKER) (test nhgo=961) 2.91 M/ L 3.93-5.22 HEMOGLOBIN (BEAKER) (test skqr=957) 8.9 GM/DL 11.2-15.7 HEMATOCRIT (BEAKER) (test pxre=046) 30.2 % 34.1-44.9 MEAN CORPUSCULAR VOLUME (BEAKER) (test peon=078) 103.8 fL 79.4-94.8 MEAN CORPUSCULAR HEMOGLOBIN (BEAKER) (test 30.6 pg 25.6-32.2 ymle=046) MEAN CORPUSCULAR HEMOGLOBIN CONC (BEAKER) (test 29.5 GM/DL 32.2-35.5 vquz=845) RED CELL DISTRIBUTION WIDTH (BEAKER) (test 19.2 % 11.7-14.4 hhzt=958) PLATELET COUNT (BEAKER) (test jhyj=056) 217 K/CU MM 150-450 MEAN PLATELET VOLUME (BEAKER) (test qxbh=963) 9.8 fL 9.4-12.3 NUCLEATED RED BLOOD CELLS (BEAKER) (test 0 /100 WBC 0-0 juem=002) POCT-GLUCOSE [id number] 21:46:00 Test Item Value Reference Range Comments POC-GLUCOSE METER (BEAKER) 263 mg/dL 70-110 TESTED AT [address] (test mamh=8811) [facility] [address] POCT-GLUCOSE [id number] 19:03:00 Test Item Value Reference Range Comments POC-GLUCOSE METER (BEAKER) 178 mg/dL 70-110 TESTED AT [address] (test kwsf=8653) [facility] [address] POCT-GLUCOSE [id number] 17:02:00 Test Item Value Reference Range Comments POC-GLUCOSE METER (BEAKER) 126 mg/dL 70-110 TESTED AT [address] (test gvwr=1740) [facility] [address] POCT-GLUCOSE [id number] 11:34:00 Test Item Value Reference Range Comments POC-GLUCOSE METER (BEAKER) 202 mg/dL 70-110 TESTED AT [address] (test cdpg=6933) [facility] [address] RAD, CHEST, 1 VIEW, NON [id number] 05:46:00Reason for exam:->post opShould this be performed at the bedside?->YesFINAL REPORT RAD, CHEST, 1 VIEW, NON DEPT INDICATION: post op COMPARISON: Prior day' s exam FINDINGS: Portable frontal view of the chest. IMPRESSION: Support Lines: Stable. Lungs and pleura: Decreased right effusion. Unchanged interstitial edema No pneumothorax.Heart and mediastinum: Stable contours. Stable surgical changes.Additional findings: None. Signed: Trey Robles Verified Date/Time: 07/14/2018 05:46:57 Reading Location: [address] Neuro Reading Room [id number] 04:03:00 Test Item Value Reference Range Comments MAGNESIUM (BEAKER) (test 2.2 mg/dL 1.6-2.6 Specimen slightly hemolyzed stns=482) [id number] 04:03:00 Test Item Value Reference Range Comments PHOSPHORUS (BEAKER) (test 2.9 mg/dL 2.3-4.7 Specimen slightly hemolyzed hnzs=226) BASIC METABOLIC [id number] 04:03:00 Test Item Value Reference Range Comments SODIUM (BEAKER) (test 138 meq/L 136-145 nhdr=237) POTASSIUM (BEAKER) (test 5.0 meq/L 3.5-5.1 Specimen slightly boru=653) hemolyzed CHLORIDE (BEAKER) (test 103 meq/L 98-107 zqgd=768) CO2 (BEAKER) (test 29 meq/L 22-29 oipe=726) BLOOD UREA NITROGEN 23 mg/dL 7-21 (BEAKER) (test nzeh=051) CREATININE (BEAKER) (test 1.41 mg/dL 0.57-1.25 Specimen slightly ccai=590) hemolyzed GLUCOSE RANDOM (BEAKER) 144 mg/dL 70-105 (test tiln=605) CALCIUM (BEAKER) (test 9.1 mg/dL 8.4-10.2 iifs=050) EGFR (BEAKER) (test 45 mL/min/1.73 sq m ESTIMATED GFR IS NOT oizm=2223) ACCURATE CREATININE CLEARANCE IN PREDICTING GLOMERULAR FILTRATION RATE. ESTIMATED GFR IS NOT APPLICABLE FOR DIALYSIS PATIENTS. [id number] 03:49:00 Test Item Value Reference Range Comments PARTIAL THROMBOPLASTIN TIME (BEAKER) (test 42.0 seconds 22.5-36.0 wmrc=209) PROTHROMBIN [id number] 03:48:00 Test Item Value Reference Range Comments PROTIME (BEAKER) (test fvty=655) 14.1 seconds 11.7-14.7 INR (BEAKER) (test fgqr=381) 1.1 <=5.9 RECOMMENDED COUMADIN/WARFARIN INR THERAPY RANGESSTANDARD DOSE: 2.0 - 3.0 Includes: PROPHYLAXIS forvenous thrombosis, systemic embolization; TREATMENT for venous thrombosis and/or pulmonary embolus.HIGH RISK: Target INR is 2.5-3.5 for patients with mechanical heart valves.CBC (HEMOGRAM ONLY)2018-07-14 03:38:00 Test Item Value Reference Range Comments WHITE BLOOD CELL COUNT (BEAKER) (test mwfk=498) 8.1 K/ L 3.5-10.5 RED BLOOD CELL COUNT (BEAKER) (test lzja=619) 2.93 M/ L 3.93-5.22 HEMOGLOBIN (BEAKER) (test dlha=632) 9.0 GM/DL 11.2-15.7 HEMATOCRIT (BEAKER) (test hfeb=395) 30.6 % 34.1-44.9 MEAN CORPUSCULAR VOLUME (BEAKER) (test zzra=479) 104.4 fL 79.4-94.8 MEAN CORPUSCULAR HEMOGLOBIN (BEAKER) (test 30.7 pg 25.6-32.2 dnhi=588) MEAN CORPUSCULAR HEMOGLOBIN CONC (BEAKER) (test 29.4 GM/DL 32.2-35.5 wioy=834) RED CELL DISTRIBUTION WIDTH (BEAKER) (test 19.6 % 11.7-14.4 ymkg=639) PLATELET COUNT (BEAKER) (test snhb=875) 252 K/CU MM 150-450 MEAN PLATELET VOLUME (BEAKER) (test bztt=192) 9.7 fL 9.4-12.3 NUCLEATED RED BLOOD CELLS (BEAKER) (test 0 /100 WBC 0-0 ccby=751) POCT-GLUCOSE [id number] 21:17:00 Test Item Value Reference Range Comments POC-GLUCOSE METER (BEAKER) 168 mg/dL 70-110 TESTED AT [address] (test gopk=3926) [place] [id number] POCT-GLUCOSE [id number] 16:32:00 Test Item Value Reference Range Comments POC-GLUCOSE METER (BEAKER) 267 mg/dL 70-110 TESTED AT [address] (test xsof=7645) [place] [id number] POCT-GLUCOSE [id number] 12:30:00 Test Item Value Reference Range Comments POC-GLUCOSE METER (BEAKER) 213 mg/dL 70-110 TESTED AT [address] (test citw=8345) [place] [address] RAD, CHEST, 1 VIEW, NON [id number] 09:17:00Reason for exam:->post opShould this be performed at the bedside?->YesFINAL REPORT Portable chest. CLINICAL HISTORY: post op. COMPARISON STUDY: Chest x- ray from yesterday. FINDINGS: The cardiac silhouette is enlarged. An aortic stent graft is seen.The pulmonary parenchyma demonstrates a small right pleural effusion with adjacent atelectasis or consolidation, slightly more pronounced than on previous. The remaining pulmonary opacities have improved. The support lines and tubes are unchanged. No pneumothorax is seen. Degenerative changes are noted. IMPRESSION: Small right pleural effusion with adjacent atelectasis or consolidation, slightly morepronounced than on previous. The remaining pulmonary opacities have improved. Signed: Willian Mckeon Verified Date/Time: 07/13/2018 09:17:51 Reading Location: [facility] [address] Radiology ReadingRoom 09 :17 AMDIGOXIN [id number] 09:01:00 Test Item Value Reference Range Comments DIGOXIN LEVEL (BEAKER) (test iloa=446) 0.8 ng/mL 0.8-2.0 Draw before next dose of DigoxinPOCT-GLUCOSE [id number] 08:47:00 Test Item Value Reference Range Comments POC-GLUCOSE METER (BEAKER) 240 mg/dL 70-110 TESTED AT [facility] [address] [place] [address] (test uyum=0414) [facility] [address] [id number] 04:08:00 Test Item Value Reference Range Comments PHOSPHORUS (BEAKER) (test cxgg=140) 3.5 mg/dL 2.3-4.7 [id number] 04:08:00 Test Item Value Reference Range Comments MAGNESIUM (BEAKER) (test dlnd=048) 2.1 mg/dL 1.6-2.6 BASIC METABOLIC [id number] 04:08:00 Test Item Value Reference Range Comments SODIUM (BEAKER) (test 140 meq/L 136-145 inol=513) POTASSIUM (BEAKER) (test 4.8 meq/L 3.5-5.1 xups=182) CHLORIDE (BEAKER) (test 105 meq/L 98-107 mlnh=213) CO2 (BEAKER) (test 28 meq/L 22-29 nutj=413) BLOOD UREA NITROGEN 21 mg/dL 7-21 (BEAKER) (test ctdp=634) CREATININE (BEAKER) (test 1.33 mg/dL 0.57-1.25 rhya=046) GLUCOSE RANDOM (BEAKER) 123 mg/dL 70-105 (test pgfj=645) CALCIUM (BEAKER) (test 8.8 mg/dL 8.4-10.2 vrqt=838) EGFR (BEAKER) (test 48 mL/min/1.73 sq m ESTIMATED GFR IS NOT xbzc=9574) ACCURATE CREATININE CLEARANCE IN PREDICTING GLOMERULAR FILTRATION RATE. ESTIMATED GFR IS NOT APPLICABLE FOR DIALYSIS PATIENTS. [id number] 03:51:00 Test Item Value Reference Range Comments PARTIAL THROMBOPLASTIN TIME (BEAKER) (test 43.3 seconds 22.5-36.0 iwrj=709) PROTHROMBIN [id number] 03:50:00 Test Item Value Reference Range Comments PROTIME (BEAKER) (test ihxd=593) 13.7 seconds 11.7-14.7 INR (BEAKER) (test pfjm=744) 1.0 <=5.9 RECOMMENDED COUMADIN/WARFARIN INR THERAPY RANGESSTANDARD DOSE: 2.0 - 3.0 Includes: PROPHYLAXIS forvenous thrombosis, systemic embolization; TREATMENT for venous thrombosis and/or pulmonary embolus.HIGH RISK: Target INR is 2.5-3.5 for patients with mechanical heart valves.CBC (HEMOGRAM ONLY)2018-07-13 03:24:00 Test Item Value Reference Range Comments WHITE BLOOD CELL COUNT (BEAKER) (test ddau=915) 7.5 K/ L 3.5-10.5 RED BLOOD CELL COUNT (BEAKER) (test uuqi=226) 2.94 M/ L 3.93-5.22 HEMOGLOBIN (BEAKER) (test sbxc=005) 9.1 GM/DL 11.2-15.7 HEMATOCRIT (BEAKER) (test uaqv=836) 30.9 % 34.1-44.9 MEAN CORPUSCULAR VOLUME (BEAKER) (test qmxm=493) 105.1 fL 79.4-94.8 MEAN CORPUSCULAR HEMOGLOBIN (BEAKER) (test 31.0 pg 25.6-32.2 whjc=151) MEAN CORPUSCULAR HEMOGLOBIN CONC (BEAKER) (test 29.4 GM/DL 32.2-35.5 wnby=473) RED CELL DISTRIBUTION WIDTH (BEAKER) (test 19.8 % 11.7-14.4 mtwt=056) PLATELET COUNT (BEAKER) (test fnwk=247) 259 K/CU MM 150-450 MEAN PLATELET VOLUME (BEAKER) (test dpqx=236) 9.7 fL 9.4-12.3 NUCLEATED RED BLOOD CELLS (BEAKER) (test 0 /100 WBC 0-0 mglk=269) POCT-GLUCOSE [id number] 22:41:00 Test Item Value Reference Range Comments POC-GLUCOSE METER (BEAKER) 230 mg/dL 70-110 TESTED AT [address] (test pvkj=0588) [place] [id number] POCT-GLUCOSE [id number] 18:56:00 Test Item Value Reference Range Comments POC-GLUCOSE METER (BEAKER) 98 mg/dL 70-110 TESTED AT [address] (test fnmp=2805) [facility] [address] POCT-GLUCOSE [id number] 12:04:00 Test Item Value Reference Range Comments POC-GLUCOSE METER (BEAKER) 169 mg/dL 70-110 TESTED AT [address] (test tbnh=0917) [facility] [address] POCT-GLUCOSE [id number] 09:50:00 Test Item Value Reference Range Comments POC-GLUCOSE METER (BEAKER) 260 mg/dL 70-110 TESTED AT [address] (test xvqz=9892) [facility] [address] RAD, CHEST, 1 VIEW, NON [id number] 07:18:00Reason for exam:->post opShould this be performed at the bedside?->YesFINAL REPORT AP chest HISTORY: Postoperative. COMPARISON: 07/11/2018. IMPRESSION: Central line unchanged. Cardiomegaly. Thoracic aortic stent graft. Coarse interstitial markings similar to previous. Question developing right basilar atelectasis. No pneumothorax. Signed: Mitchel Jarquin MDReport Verified Date/ Time: 07/12/2018 07:18:25 Reading Location: [facility] Radiology Reading Room 07: 18 AMPOCT-GLUCOSE [id number] 06:54:00 Test Item Value Reference Range Comments POC-GLUCOSE METER (BEAKER) 193 mg/dL 70-110 TESTED AT [facility] [address] (test zfnj=5373) [place] [address] [id number] 04:51:00 Test Item Value Reference Range Comments PARTIAL THROMBOPLASTIN TIME (BEAKER) (test 42.6 seconds 22.5-36.0 lddx=274) PROTHROMBIN TIME/[id number] 04:42:00 Test Item Value Reference Range Comments PROTIME (BEAKER) (test djex=592) 13.7 seconds 11.7-14.7 INR (BEAKER) (test xkii=989) 1.0 <=5.9 RECOMMENDED COUMADIN/WARFARIN INR THERAPY RANGESSTANDARD DOSE: 2.0 - 3.0 Includes: PROPHYLAXIS forvenous thrombosis, systemic embolization; TREATMENT for venous thrombosis and/or pulmonary embolus.HIGH RISK: Target INR is 2.5-3.5 for patients with mechanical heart valves.[id number] 04:31:00 Test Item Value Reference Range Comments PHOSPHORUS (BEAKER) (test ylvv=421) 2.4 mg/dL 2.3-4.7 [id number] 04:31:00 Test Item Value Reference Range Comments MAGNESIUM (BEAKER) (test hhor=981) 2.3 mg/dL 1.6-2.6 BASIC METABOLIC [id number] 04:31:00 Test Item Value Reference Range Comments SODIUM (BEAKER) (test 141 meq/L 136-145 iczm=879) POTASSIUM (BEAKER) (test 4.5 meq/L 3.5-5.1 vfcw=012) CHLORIDE (BEAKER) (test 106 meq/L 98-107 leoy=827) CO2 (BEAKER) (test 31 meq/L 22-29 rftr=374) BLOOD UREA NITROGEN 26 mg/dL 7-21 (BEAKER) (test utuh=741) CREATININE (BEAKER) (test 1.41 mg/dL 0.57-1.25 wzyu=908) GLUCOSE RANDOM (BEAKER) 63 mg/dL 70-105 (test iiyv=391) CALCIUM (BEAKER) (test 8.7 mg/dL 8.4-10.2 lnic=122) EGFR (BEAKER) (test 45 mL/min/1.73 sq m ESTIMATED GFR IS NOT kviv=2262) ACCURATE CREATININE CLEARANCE IN PREDICTING GLOMERULAR FILTRATION RATE. ESTIMATED GFR IS NOT APPLICABLE FOR DIALYSIS PATIENTS. CBC (HEMOGRAM ONLY)2018-07-12 04:23:00 Test Item Value Reference Range Comments WHITE BLOOD CELL COUNT (BEAKER) (test smru=343) 7.0 K/ L 3.5-10.5 RED BLOOD CELL COUNT (BEAKER) (test aduq=493) 2.79 M/ L 3.93-5.22 HEMOGLOBIN (BEAKER) (test iycz=655) 8.6 GM/DL 11.2-15.7 HEMATOCRIT (BEAKER) (test zeqr=223) 28.3 % 34.1-44.9 MEAN CORPUSCULAR VOLUME (BEAKER) (test qfpn=169) 101.4 fL 79.4-94.8 MEAN CORPUSCULAR HEMOGLOBIN (BEAKER) (test 30.8 pg 25.6-32.2 gugm=972) MEAN CORPUSCULAR HEMOGLOBIN CONC (BEAKER) (test 30.4 GM/DL 32.2-35.5 hmxh=048) RED CELL DISTRIBUTION WIDTH (BEAKER) (test 20.2 % 11.7-14.4 kymq=912) PLATELET COUNT (BEAKER) (test jmyp=116) 276 K/CU MM 150-450 MEAN PLATELET VOLUME (BEAKER) (test bveu=505) 10.3 fL 9.4-12.3 NUCLEATED RED BLOOD CELLS (BEAKER) (test 0 /100 WBC 0-0 aopk=882) POCT-GLUCOSE [id number] 00:19:00 Test Item Value Reference Range Comments POC-GLUCOSE METER (BEAKER) 404 mg/dL 70-110 TESTED AT [address] (test yabv=0927) [facility] [address] POCT-GLUCOSE [id number] 18:10:00 Test Item Value Reference Range Comments POC-GLUCOSE METER (BEAKER) 268 mg/dL 70-110 TESTED AT [address] (test sgcl=7624) [facility] [address] POCT-GLUCOSE [id number] 12:22:00 Test Item Value Reference Range Comments POC-GLUCOSE METER (BEAKER) 221 mg/dL 70-110 TESTED AT [place] [id number] [facility] (test dsvq=8735) [facility] [address] RAD, CHEST, 1 VIEW, NON [id number] 07:27:00Reason for exam:->post opShould this be performed at the bedside?->YesFINAL REPORT Portable chest. CLINICAL HISTORY: post op. COMPARISON STUDY: Chest x- ray from yesterday. FINDINGS: The cardiac silhouette is enlarged. An aortic stent graft is seen.The pulmonary parenchyma demonstrates interstitial markings with atelectatic changes in the right lung base and right costophrenic angle blunting. An aortic stent graft remains. A right PICC line remains. No pneumothorax is seen. Degenerative changes are noted. IMPRESSION: No significant change. Signed: Willian Mckeoneport Verified Date/Time: 2018 07:27:41 Reading Location: [facility] [address] Radiology Reading Room POCT- GLUCOSE [id number] 05:28:00 Test Item Value Reference Range Comments POC-GLUCOSE METER (BEAKER) 166 mg/dL 70-110 TESTED AT [address] (test ihcd=2627) [place] [address] [id number] 04:08:00 Test Item Value Reference Range Comments PHOSPHORUS (BEAKER) (test goff=227) 3.0 mg/dL 2.3-4.7 [id number] 04:08:00 Test Item Value Reference Range Comments MAGNESIUM (BEAKER) (test hulq=505) 1.8 mg/dL 1.6-2.6 BASIC METABOLIC [id number] 04:08:00 Test Item Value Reference Range Comments SODIUM (BEAKER) (test 138 meq/L 136-145 svav=432) POTASSIUM (BEAKER) (test 4.6 meq/L 3.5-5.1 pttq=059) CHLORIDE (BEAKER) (test 102 meq/L 98-107 yluv=825) CO2 (BEAKER) (test 29 meq/L 22-29 zagd=436) BLOOD UREA NITROGEN 28 mg/dL 7-21 (BEAKER) (test ipbq=226) CREATININE (BEAKER) (test 1.64 mg/dL 0.57-1.25 ffrk=492) GLUCOSE RANDOM (BEAKER) 196 mg/dL 70-105 (test jgzy=619) CALCIUM (BEAKER) (test 8.8 mg/dL 8.4-10.2 uxzz=214) EGFR (BEAKER) (test 37 mL/min/1.73 sq m ESTIMATED GFR IS NOT smjx=4651) ACCURATE CREATININE CLEARANCE IN PREDICTING GLOMERULAR FILTRATION RATE. ESTIMATED GFR IS NOT APPLICABLE FOR DIALYSIS PATIENTS. [id number] 04:06:00 Test Item Value Reference Range Comments PARTIAL THROMBOPLASTIN TIME (BEAKER) (test 51.7 seconds 22.5-36.0 zrjz=841) PROTHROMBIN TIME/[id number] 04:05:00 Test Item Value Reference Range Comments PROTIME (BEAKER) (test uoze=803) 14.1 seconds 11.7-14.7 INR (BEAKER) (test menv=421) 1.1 <=5.9 RECOMMENDED COUMADIN/WARFARIN INR THERAPY RANGESSTANDARD DOSE: 2.0 - 3.0 Includes: PROPHYLAXIS forvenous thrombosis, systemic embolization; TREATMENT for venous thrombosis and/or pulmonary embolus.HIGH RISK: Target INR is 2.5-3.5 for patients with mechanical heart valves.CBC (HEMOGRAM ONLY)2018-07-11 03:53:00 Test Item Value Reference Range Comments WHITE BLOOD CELL COUNT (BEAKER) (test wbar=051) 6.3 K/ L 3.5-10.5 RED BLOOD CELL COUNT (BEAKER) (test rmee=297) 2.90 M/ L 3.93-5.22 HEMOGLOBIN (BEAKER) (test amey=613) 8.8 GM/DL 11.2-15.7 HEMATOCRIT (BEAKER) (test zpwi=678) 29.7 % 34.1-44.9 MEAN CORPUSCULAR VOLUME (BEAKER) (test hnis=481) 102.4 fL 79.4-94.8 MEAN CORPUSCULAR HEMOGLOBIN (BEAKER) (test 30.3 pg 25.6-32.2 kvrk=688) MEAN CORPUSCULAR HEMOGLOBIN CONC (BEAKER) (test 29.6 GM/DL 32.2-35.5 yhbf=036) RED CELL DISTRIBUTION WIDTH (BEAKER) (test 21.0 % 11.7-14.4 fhyf=833) PLATELET COUNT (BEAKER) (test mrhh=085) 270 K/CU MM 150-450 MEAN PLATELET VOLUME (BEAKER) (test kovg=003) 10.1 fL 9.4-12.3 NUCLEATED RED BLOOD CELLS (BEAKER) (test 0 /100 WBC 0-0 vuht=222) POCT-GLUCOSE [id number] 00:38:00 Test Item Value Reference Range Comments POC-GLUCOSE METER (BEAKER) 198 mg/dL 70-110 TESTED AT [address] (test zkgs=2104) [facility] [address] POCT-GLUCOSE [id number] 18:42:00 Test Item Value Reference Range Comments POC-GLUCOSE METER (BEAKER) 240 mg/dL 70-110 TESTED AT [address] (test ggxf=6124) [facility] [address] POCT-GLUCOSE [id number] 12:48:00 Test Item Value Reference Range Comments POC-GLUCOSE METER (BEAKER) 248 mg/dL 70-110 TESTED AT [address] (test uhim=1722) [facility] [address] RAD, CHEST, 1 VIEW, NON [id number] 08:53:00Reason for exam:->post opShould this be performed at the bedside?->YesFINAL REPORT Portable chest. CLINICAL HISTORY: post op. COMPARISON STUDY: Chest x- ray from yesterday. FINDINGS: This film is taken with the patient rotated, decreasing diagnosticaccuracy The cardiac silhouette is enlarged. The pulmonary parenchyma demonstrates interstitial and airspace opacities which are similar to previous. A right PICC line remains. There is an aortic stentgraft. No pneumothorax is seen. Degenerative changes are noted. IMPRESSION: Given the difference in technique, no significant change. Signed: Willian Mckeon Verified Date/Time: 07/10/2018 08:53:53 Reading Location: [address] Reading Room POCT-GLUCOSE [id number] 06:33:00 Test Item Value Reference Range Comments POC-GLUCOSE METER (BEAKER) 129 mg/dL 70-110 TESTED AT [facility] [address] [facility] (test xicn=0759) [facility] [address] POCT-GLUCOSE [id number] 05:36:00 Test Item Value Reference Range Comments POC-GLUCOSE METER (BEAKER) 55 mg/dL 70-110 TESTED AT [place] [id number] [facility] (test lxvc=6873) [facility] [address] [id number] 04:15:00 Test Item Value Reference Range Comments PHOSPHORUS (BEAKER) (test yqkf=002) 3.0 mg/dL 2.3-4.7 [id number] 04:15:00 Test Item Value Reference Range Comments MAGNESIUM (BEAKER) (test hcyy=412) 2.0 mg/dL 1.6-2.6 BASIC METABOLIC [id number] 04:15:00 Test Item Value Reference Range Comments SODIUM (BEAKER) (test 138 meq/L 136-145 mtsz=537) POTASSIUM (BEAKER) (test 4.5 meq/L 3.5-5.1 tjfe=732) CHLORIDE (BEAKER) (test 103 meq/L 98-107 lrtz=487) CO2 (BEAKER) (test 27 meq/L 22-29 bjuv=140) BLOOD UREA NITROGEN 32 mg/dL 7-21 (BEAKER) (test zmva=908) CREATININE (BEAKER) (test 1.55 mg/dL 0.57-1.25 dkuv=458) GLUCOSE RANDOM (BEAKER) 121 mg/dL 70-105 (test qrpi=480) CALCIUM (BEAKER) (test 8.8 mg/dL 8.4-10.2 fphy=991) EGFR (BEAKER) (test 40 mL/min/1.73 sq m ESTIMATED GFR IS NOT wibc=1644) ACCURATE CREATININE CLEARANCE IN PREDICTING GLOMERULAR FILTRATION RATE. ESTIMATED GFR IS NOT APPLICABLE FOR DIALYSIS PATIENTS. [id number] 03:41:00 Test Item Value Reference Range Comments PARTIAL THROMBOPLASTIN TIME (BEAKER) (test 50.1 seconds 22.5-36.0 jfel=906) PROTHROMBIN [id number] 03:40:00 Test Item Value Reference Range Comments PROTIME (BEAKER) (test rzby=625) 14.6 seconds 11.7-14.7 INR (BEAKER) (test xelx=772) 1.1 <=5.9 RECOMMENDED COUMADIN/WARFARIN INR THERAPY RANGESSTANDARD DOSE: 2.0 - 3.0 Includes: PROPHYLAXIS forvenous thrombosis, systemic embolization; TREATMENT for venous thrombosis and/or pulmonary embolus.HIGH RISK: Target INR is 2.5-3.5 for patients with mechanical heart valves.CBC (HEMOGRAM ONLY)2018-07-10 03:38:00 Test Item Value Reference Range Comments WHITE BLOOD CELL COUNT (BEAKER) (test osqh=088) 6.3 K/ L 3.5-10.5 RED BLOOD CELL COUNT (BEAKER) (test smxu=029) 2.47 M/ L 3.93-5.22 HEMOGLOBIN (BEAKER) (test ejzf=620) 7.6 GM/DL 11.2-15.7 HEMATOCRIT (BEAKER) (test azhv=839) 26.0 % 34.1-44.9 MEAN CORPUSCULAR VOLUME (BEAKER) (test lkrv=145) 105.3 fL 79.4-94.8 MEAN CORPUSCULAR HEMOGLOBIN (BEAKER) (test 30.8 pg 25.6-32.2 mwip=482) MEAN CORPUSCULAR HEMOGLOBIN CONC (BEAKER) (test 29.2 GM/DL 32.2-35.5 tilz=769) RED CELL DISTRIBUTION WIDTH (BEAKER) (test 17.1 % 11.7-14.4 xshs=107) PLATELET COUNT (BEAKER) (test chvw=975) 301 K/CU MM 150-450 MEAN PLATELET VOLUME (BEAKER) (test hcro=640) 10.0 fL 9.4-12.3 NUCLEATED RED BLOOD CELLS (BEAKER) (test 0 /100 WBC 0-0 xmtk=611) POCT-GLUCOSE [id number] 00:03:00 Test Item Value Reference Range Comments POC-GLUCOSE METER (BEAKER) 317 mg/dL 70-110 Notified PAULA BERGER/TESTED AT [facility] (test rydc=8374) [address] [facility] [address] POCT-GLUCOSE [id number] 17:44:00 Test Item Value Reference Range Comments POC-GLUCOSE METER (BEAKER) 129 mg/dL 70-110 TESTED AT [address] (test akrv=2105) [facility] [address] POCT-GLUCOSE [id number] 12:13:00 Test Item Value Reference Range Comments POC-GLUCOSE METER (BEAKER) 283 mg/dL 70-110 TESTED AT [address] (test mmhf=7305) [facility] [address] RAD, CHEST, 1 VIEW, NON [id number] 07:35:00Reason for exam:->post opShould this be performed at the bedside?->YesFINAL REPORT Chest, one view. HISTORY: post op COMPARISON: Radiograph from 2018 IMPRESSION: Unchanged positioning of the right PICC and thoracic aortic stent graft. Unchanged small right pleural effusion with interstitial edema. There is likely a small left pleural effusion which is new. No pneumothorax. The cardia silhouette is unchanged. No acute bony abnormality. Signed: Mono Branham MDReport Verified Date/Time: 07/09/2018 07:35:48 Reading Location: [facility] C013Y CT Body Reading Room POCT-GLUCOSE [id number] 05:13:00 Test Item Value Reference Range Comments POC-GLUCOSE METER (BEAKER) 186 mg/dL 70-110 TESTED AT [address] (test lesp=4572) [facility] [address] [id number] 04:51:00 Test Item Value Reference Range Comments PHOSPHORUS (BEAKER) (test qxyq=815) 3.8 mg/dL 2.3-4.7 [id number] 04:51:00 Test Item Value Reference Range Comments MAGNESIUM (BEAKER) (test vtkz=482) 2.1 mg/dL 1.6-2.6 BASIC METABOLIC [id number] 04:51:00 Test Item Value Reference Range Comments SODIUM (BEAKER) (test 138 meq/L 136-145 axkh=116) POTASSIUM (BEAKER) (test 4.9 meq/L 3.5-5.1 zygm=938) CHLORIDE (BEAKER) (test 103 meq/L 98-107 roxs=537) CO2 (BEAKER) (test 29 meq/L 22-29 wjsa=259) BLOOD UREA NITROGEN 33 mg/dL 7-21 (BEAKER) (test hvxq=637) CREATININE (BEAKER) (test 1.78 mg/dL 0.57-1.25 kffr=911) GLUCOSE RANDOM (BEAKER) 155 mg/dL 70-105 (test jqpn=313) CALCIUM (BEAKER) (test 9.0 mg/dL 8.4-10.2 ochd=393) EGFR (BEAKER) (test 34 mL/min/1.73 sq m ESTIMATED GFR IS NOT ljtv=6839) ACCURATE CREATININE CLEARANCE IN PREDICTING GLOMERULAR FILTRATION RATE. ESTIMATED GFR IS NOT APPLICABLE FOR DIALYSIS PATIENTS. [id number] 04:30:00 Test Item Value Reference Range Comments PARTIAL THROMBOPLASTIN TIME (BEAKER) (test 63.2 seconds 22.5-36.0 trov=496) PROTHROMBIN TIME/[id number] 04:29:00 Test Item Value Reference Range Comments PROTIME (BEAKER) (test lxre=892) 14.6 seconds 11.7-14.7 INR (BEAKER) (test zkar=827) 1.1 <=5.9 RECOMMENDED COUMADIN/WARFARIN INR THERAPY RANGESSTANDARD DOSE: 2.0 - 3.0 Includes: PROPHYLAXIS forvenous thrombosis, systemic embolization; TREATMENT for venous thrombosis and/or pulmonary embolus.HIGH RISK: Target INR is 2.5-3.5 for patients with mechanical heart valves.CBC (HEMOGRAM ONLY)2018-07-09 04:18:00 Test Item Value Reference Range Comments WHITE BLOOD CELL COUNT (BEAKER) (test erek=415) 6.8 K/ L 3.5-10.5 RED BLOOD CELL COUNT (BEAKER) (test xoct=069) 2.73 M/ L 3.93-5.22 HEMOGLOBIN (BEAKER) (test ycmv=259) 8.4 GM/DL 11.2-15.7 HEMATOCRIT (BEAKER) (test iiso=501) 28.7 % 34.1-44.9 MEAN CORPUSCULAR VOLUME (BEAKER) (test cile=131) 105.1 fL 79.4-94.8 MEAN CORPUSCULAR HEMOGLOBIN (BEAKER) (test 30.8 pg 25.6-32.2 dool=240) MEAN CORPUSCULAR HEMOGLOBIN CONC (BEAKER) (test 29.3 GM/DL 32.2-35.5 voya=720) RED CELL DISTRIBUTION WIDTH (BEAKER) (test 17.2 % 11.7-14.4 mybn=822) PLATELET COUNT (BEAKER) (test tbpj=004) 263 K/CU MM 150-450 MEAN PLATELET VOLUME (BEAKER) (test zopo=434) 9.9 fL 9.4-12.3 NUCLEATED RED BLOOD CELLS (BEAKER) (test 0 /100 WBC 0-0 lixy=464) POCT-GLUCOSE [id number] 23:27:00 Test Item Value Reference Range Comments POC-GLUCOSE METER (BEAKER) 141 mg/dL 70-110 TESTED AT [address] (test tykk=9585) [facility] [address] POCT-GLUCOSE [id number] 19:30:00 Test Item Value Reference Range Comments POC-GLUCOSE METER (BEAKER) 234 mg/dL 70-110 TESTED AT [address] (test ofxh=9587) [facility] [address] POCT-GLUCOSE [id number] 11:55:00 Test Item Value Reference Range Comments POC-GLUCOSE METER (BEAKER) 317 mg/dL 70-110 TESTED AT [address] (test xgco=0954) [facility] [address] [id number] 05:14:00 Test Item Value Reference Range Comments PHOSPHORUS (BEAKER) (test zjlv=298) 3.8 mg/dL 2.3-4.7 [id number] 05:14:00 Test Item Value Reference Range Comments MAGNESIUM (BEAKER) (test wukj=470) 2.1 mg/dL 1.6-2.6 BASIC METABOLIC [id number] 05:14:00 Test Item Value Reference Range Comments SODIUM (BEAKER) (test 137 meq/L 136-145 ayjb=219) POTASSIUM (BEAKER) (test 4.6 meq/L 3.5-5.1 nazs=484) CHLORIDE (BEAKER) (test 103 meq/L 98-107 ewbs=240) CO2 (BEAKER) (test 26 meq/L 22-29 ildg=761) BLOOD UREA NITROGEN 31 mg/dL 7-21 (BEAKER) (test kmaa=370) CREATININE (BEAKER) (test 1.63 mg/dL 0.57-1.25 ypin=028) GLUCOSE RANDOM (BEAKER) 244 mg/dL 70-105 (test xfzz=421) CALCIUM (BEAKER) (test 9.2 mg/dL 8.4-10.2 jbjf=746) EGFR (BEAKER) (test 38 mL/min/1.73 sq m ESTIMATED GFR IS NOT nnhg=3613) ACCURATE CREATININE CLEARANCE IN PREDICTING GLOMERULAR FILTRATION RATE. ESTIMATED GFR IS NOT APPLICABLE FOR DIALYSIS PATIENTS. RAD, CHEST, 1 VIEW, NON [id number] 04:48:00Reason for exam:->post opShould this be performed at the bedside?->YesFINAL REPORT EXAMINATION: AP PORTABLE CHEST RADIOGRAPH CLINICAL INDICATION: Aortic repair IMPRESSION: Compared with July 07, 2018. Tip of the right upper extremity central line projects over the superior vena cava, stable in position. As before, the patient is status post repair of the aorta with placement of multiple stent grafts. The heart is enlarged as before. Mediastinal contours are grossly unchanged. Subtle reticular opacities are again noted in both lungs with a predominantly basilar distribution. Although a component may reflect atelectasis, mild pulmonary edema should also be considered. Subtle blunting of the right costophrenic sulcus is also again noted. No definite evidence of new lung consolidation or pneumothorax. Signed: Navi Garcia MDReport Verified Date/Time: 07/08/2018 04:48:56 Reading Location : [address] Reading Room Electronicallysigned by: NAVI GARCIA M.D. on 07/08/2018 04:48 [id number] 04:24:00 Test Item Value Reference Range Comments PARTIAL THROMBOPLASTIN TIME (BEAKER) (test 54.7 seconds 22.5-36.0 dqmo=156) PROTHROMBIN TIME/[id number] 04:23:00 Test Item Value Reference Range Comments PROTIME (BEAKER) (test lfsd=833) 14.8 seconds 11.7-14.7 INR (BEAKER) (test cpfw=197) 1.2 <=5.9 RECOMMENDED COUMADIN/WARFARIN INR THERAPY RANGESSTANDARD DOSE: 2.0 - 3.0 Includes: PROPHYLAXIS forvenous thrombosis, systemic embolization; TREATMENT for venous thrombosis and/or pulmonary embolus.HIGH RISK: Target INR is 2.5-3.5 for patients with mechanical heart valves.CBC (HEMOGRAM ONLY)2018-07-08 04:02:00 Test Item Value Reference Range Comments WHITE BLOOD CELL COUNT (BEAKER) (test came=648) 6.7 K/ L 3.5-10.5 RED BLOOD CELL COUNT (BEAKER) (test gqze=139) 2.79 M/ L 3.93-5.22 HEMOGLOBIN (BEAKER) (test wyvm=513) 8.6 GM/DL 11.2-15.7 HEMATOCRIT (BEAKER) (test vytj=195) 29.0 % 34.1-44.9 MEAN CORPUSCULAR VOLUME (BEAKER) (test muqb=820) 103.9 fL 79.4-94.8 MEAN CORPUSCULAR HEMOGLOBIN (BEAKER) (test 30.8 pg 25.6-32.2 cufr=726) MEAN CORPUSCULAR HEMOGLOBIN CONC (BEAKER) (test 29.7 GM/DL 32.2-35.5 nfbr=943) RED CELL DISTRIBUTION WIDTH (BEAKER) (test 17.2 % 11.7-14.4 wcav=662) PLATELET COUNT (BEAKER) (test xffs=080) 295 K/CU MM 150-450 MEAN PLATELET VOLUME (BEAKER) (test lkdt=055) 10.2 fL 9.4-12.3 NUCLEATED RED BLOOD CELLS (BEAKER) (test 0 /100 WBC 0-0 fnrt=214) RAD, CHEST, 1 VIEW, NON [id number] 08:41:00Reason for exam:->post opShould this be performed at the bedside?->YesFINAL REPORT TECHNIQUE: Frontal view of the chest. INDICATION: 72-year-old woman after surgery. COMPARISON: Chest radiograph 07/06/2018. FINDINGS: LINES/TUBES: Unchanged right upper extremity PICC. LUNGS: Persistent interstitial prominence bilaterally. PLEURA: No pneumothorax or significant pleural effusion. HEART AND MEDIASTINUM: The cardiomediastinal silhouette is unchanged. Unchanged stent graft projects over the descending thoracic aorta. SOFT TISSUES AND BONES: Unremarkable. IMPRESSION:No significant change since 07/06/2018. Signed: Lynnette Castro MDReport Verified Date/Time: 07/07/2018 08:41:39 Reading Location: [facility] Reading Room [id number] 05:37:00 Test Item Value Reference Range Comments PHOSPHORUS (BEAKER) (test ywmp=935) 3.0 mg/dL 2.3-4.7 [id number] 05:37:00 Test Item Value Reference Range Comments MAGNESIUM (BEAKER) (test rhwp=427) 2.1 mg/dL 1.6-2.6 BASIC METABOLIC [id number] 05:37:00 Test Item Value Reference Range Comments SODIUM (BEAKER) (test 137 meq/L 136-145 fnck=905) POTASSIUM (BEAKER) (test 4.6 meq/L 3.5-5.1 memp=544) CHLORIDE (BEAKER) (test 102 meq/L 98-107 mhhz=414) CO2 (BEAKER) (test 25 meq/L 22-29 erag=536) BLOOD UREA NITROGEN 27 mg/dL 7-21 (BEAKER) (test xxme=184) CREATININE (BEAKER) (test 1.44 mg/dL 0.57-1.25 tazl=766) GLUCOSE RANDOM (BEAKER) 191 mg/dL 70-105 (test ypgi=374) CALCIUM (BEAKER) (test 9.2 mg/dL 8.4-10.2 wxmy=217) EGFR (BEAKER) (test 43 mL/min/1.73 sq m ESTIMATED GFR IS NOT mlba=4092) ACCURATE CREATININE CLEARANCE IN PREDICTING GLOMERULAR FILTRATION RATE. ESTIMATED GFR IS NOT APPLICABLE FOR DIALYSIS PATIENTS. [id number] 05:12:00 Test Item Value Reference Range Comments PARTIAL THROMBOPLASTIN TIME (BEAKER) (test 42.9 seconds 22.5-36.0 zohb=851) PROTHROMBIN TIME/[id number] 05:11:00 Test Item Value Reference Range Comments PROTIME (BEAKER) (test xnwh=814) 14.1 seconds 11.7-14.7 INR (BEAKER) (test tzgn=345) 1.1 <=5.9 RECOMMENDED COUMADIN/WARFARIN INR THERAPY RANGESSTANDARD DOSE: 2.0 - 3.0 Includes: PROPHYLAXIS forvenous thrombosis, systemic embolization; TREATMENT for venous thrombosis and/or pulmonary embolus.HIGH RISK: Target INR is 2.5-3.5 for patients with mechanical heart valves.CBC (HEMOGRAM ONLY)2018-07-07 05:01:00 Test Item Value Reference Range Comments WHITE BLOOD CELL COUNT (BEAKER) (test ftvu=100) 6.9 K/ L 3.5-10.5 RED BLOOD CELL COUNT (BEAKER) (test qeqh=697) 2.84 M/ L 3.93-5.22 HEMOGLOBIN (BEAKER) (test xiof=138) 8.8 GM/DL 11.2-15.7 HEMATOCRIT (BEAKER) (test aife=192) 29.2 % 34.1-44.9 MEAN CORPUSCULAR VOLUME (BEAKER) (test ijpb=675) 102.8 fL 79.4-94.8 MEAN CORPUSCULAR HEMOGLOBIN (BEAKER) (test 31.0 pg 25.6-32.2 vtxn=166) MEAN CORPUSCULAR HEMOGLOBIN CONC (BEAKER) (test 30.1 GM/DL 32.2-35.5 miyn=318) RED CELL DISTRIBUTION WIDTH (BEAKER) (test 17.0 % 11.7-14.4 uxtj=803) PLATELET COUNT (BEAKER) (test qgrj=128) 270 K/CU MM 150-450 MEAN PLATELET VOLUME (BEAKER) (test gzht=222) 10.2 fL 9.4-12.3 NUCLEATED RED BLOOD CELLS (BEAKER) (test 0 /100 WBC 0-0 aecs=386) RAD, CHEST, 1 VIEW, NON [id number] 17:48:00Reason for exam:->Confirm PICC line placementShould this be performed at the bedside?->YesFINAL REPORT INDICATION: Confirm PICC line placement COMPARISON:July 06 at 11:29 AM TECHNIQUE: Chest radiograph, single view, portable technique. FINDINGS / IMPRESSION: Interval placement of a right PICC line that terminates in the low SVC, good position. Enlarged heart shadow and descending thoracic aortic stent again demonstrated. Pulmonary veins are not engorged. No pneumothorax or definite pleural effusion. Signed: Geo Rico MDReport Verified Date/Time: 07/06/2018 17:48:54 Reading Location: [place] [address]W Consult Reading Room Electronically signed by: GEO RICO M.D. on 2018 05:48 [id number] 17:23:00 Test Item Value Reference Range Comments MAGNESIUM (BEAKER) (test wtwt=192) 2.2 mg/dL 1.6-2.6 BASIC METABOLIC [id number] 17:23:00 Test Item Value Reference Range Comments SODIUM (BEAKER) (test 137 meq/L 136-145 jvkl=006) POTASSIUM (BEAKER) (test 4.9 meq/L 3.5-5.1 eeah=211) CHLORIDE (BEAKER) (test 103 meq/L 98-107 qbrx=062) CO2 (BEAKER) (test 25 meq/L 22-29 jhin=405) BLOOD UREA NITROGEN 25 mg/dL 7-21 (BEAKER) (test evhh=001) CREATININE (BEAKER) (test 1.41 mg/dL 0.57-1.25 swdt=873) GLUCOSE RANDOM (BEAKER) 219 mg/dL 70-105 (test ddxl=348) CALCIUM (BEAKER) (test 9.0 mg/dL 8.4-10.2 fkog=875) EGFR (BEAKER) (test 45 mL/min/1.73 sq m ESTIMATED GFR IS NOT lbuu=6662) ACCURATE CREATININE CLEARANCE IN PREDICTING GLOMERULAR FILTRATION RATE. ESTIMATED GFR IS NOT APPLICABLE FOR DIALYSIS PATIENTS. BLOOD GAS, [id number] 16:33:00 Test Item Value Reference Range Comments PH ARTERIAL (BEAKER) (test etfr=629) 7.46 7.35-7.45 PCO2 ARTERIAL (BEAKER) (test ttby=345) 42 mmHg 35-45 PO2 ARTERIAL (BEAKER) (test ezki=851) 63 mmHg 80-90 O2 SATURATION ARTERIAL (BEAKER) (test tylg=536) 93.1 % 96.0-97.0 HCO3 ARTERIAL (BEAKER) (test iicx=599) 29 mmol/L 21-29 BASE EXCESS ARTERIAL (BEAKER) (test chzo=063) 4.4 mmol/L -2.0-3.0 PATIENT TEMPERATURE (BEAKER) (test xnpz=3563) 37.0 C FIO2 (BEAKER) (test lqeq=0603) 32.0 % RAD, CHEST, 1 VIEW, NON [id number] 13:22:00Reason for exam:->post opShould this be performed at the bedside?->YesFINAL REPORT Chest one view. Clinical history: post op Comparison: 07/05/2018 Discussion: A frontal chest is provided. Cardiomediastinal contours are unchanged. A left IJ line is in stable position. There is mild pulmonary edema. No new consolidation. No pneumothorax. Small bilateral pleural effusions are present. Signed: Morgan Chengeport Verified Date/Time: 07/06/2018 13:22:02 Reading Location: [address] Consult Reading Room [id number] 04:30:00 Test Item Value Reference Range Comments PHOSPHORUS (BEAKER) (test ward=525) 3.2 mg/dL 2.3-4.7 [id number] 04:30:00 Test Item Value Reference Range Comments MAGNESIUM (BEAKER) (test hcna=900) 2.2 mg/dL 1.6-2.6 BASIC METABOLIC [id number] 04:30:00 Test Item Value Reference Range Comments SODIUM (BEAKER) (test 138 meq/L 136-145 wluo=581) POTASSIUM (BEAKER) (test 4.4 meq/L 3.5-5.1 xxsv=730) CHLORIDE (BEAKER) (test 104 meq/L 98-107 mjok=277) CO2 (BEAKER) (test 28 meq/L 22-29 uhem=211) BLOOD UREA NITROGEN 25 mg/dL 7-21 (BEAKER) (test jogt=297) CREATININE (BEAKER) (test 1.43 mg/dL 0.57-1.25 rwrc=617) GLUCOSE RANDOM (BEAKER) 207 mg/dL 70-105 (test xkqa=885) CALCIUM (BEAKER) (test 8.9 mg/dL 8.4-10.2 ksya=921) EGFR (BEAKER) (test 44 mL/min/1.73 sq m ESTIMATED GFR IS NOT fias=4761) ACCURATE CREATININE CLEARANCE IN PREDICTING GLOMERULAR FILTRATION RATE. ESTIMATED GFR IS NOT APPLICABLE FOR DIALYSIS PATIENTS. PROTHROMBIN TIME/[id number] 04:06:00 Test Item Value Reference Range Comments PROTIME (BEAKER) (test gsqi=666) 14.6 seconds 11.7-14.7 INR (BEAKER) (test hpkq=398) 1.1 <=5.9 RECOMMENDED COUMADIN/WARFARIN INR THERAPY RANGESSTANDARD DOSE: 2.0 - 3.0 Includes: PROPHYLAXIS forvenous thrombosis, systemic embolization; TREATMENT for venous thrombosis and/or pulmonary embolus.HIGH RISK: Target INR is 2.5-3.5 for patients with mechanical heart valves.[id number] 04:06:00 Test Item Value Reference Range Comments PARTIAL THROMBOPLASTIN TIME (BEAKER) (test 47.8 seconds 22.5-36.0 bldi=451) CBC (HEMOGRAM ONLY)2018-07-06 03:53:00 Test Item Value Reference Range Comments WHITE BLOOD CELL COUNT (BEAKER) (test pmks=998) 7.1 K/ L 3.5-10.5 RED BLOOD CELL COUNT (BEAKER) (test zntk=385) 2.77 M/ L 3.93-5.22 HEMOGLOBIN (BEAKER) (test sflp=587) 8.4 GM/DL 11.2-15.7 HEMATOCRIT (BEAKER) (test rptn=448) 28.6 % 34.1-44.9 MEAN CORPUSCULAR VOLUME (BEAKER) (test uhvg=987) 103.2 fL 79.4-94.8 MEAN CORPUSCULAR HEMOGLOBIN (BEAKER) (test 30.3 pg 25.6-32.2 eoau=895) MEAN CORPUSCULAR HEMOGLOBIN CONC (BEAKER) (test 29.4 GM/DL 32.2-35.5 fsdu=426) RED CELL DISTRIBUTION WIDTH (BEAKER) (test 17.1 % 11.7-14.4 hxdl=689) PLATELET COUNT (BEAKER) (test iwog=508) 267 K/CU MM 150-450 MEAN PLATELET VOLUME (BEAKER) (test qfoh=484) 9.9 fL 9.4-12.3 NUCLEATED RED BLOOD CELLS (BEAKER) (test 0 /100 WBC 0-0 akvs=017) HEPATIC FUNCTION [id number] 17:51:00 Test Item Value Reference Range Comments TOTAL PROTEIN (BEAKER) (test ismm=588) 6.2 gm/dL 6.0-8.3 ALBUMIN (BEAKER) (test ewjr=3259) 3.2 g/dL 3.5-5.0 BILIRUBIN TOTAL (BEAKER) (test xwej=944) 0.7 mg/dL 0.2-1.2 BILIRUBIN DIRECT (BEAKER) (test uahw=674) 0.5 mg/dL 0.1-0.5 ALKALINE PHOSPHATASE (BEAKER) (test nzjr=650) 84 U/L 40-150 AST (SGOT) (BEAKER) (test ygqi=351) 16 U/L 5-34 ALT (SGPT) (BEAKER) (test gpja=197) 9 U/L 6-55 RAD, CHEST, 1 VIEW, NON [id number] 08:39:00Reason for exam:->post opShould this be performed at the bedside?->YesFINAL REPORT Portable chest. CLINICAL HISTORY: post op. COMPARISON STUDY: Chest x- ray from yesterday. FINDINGS: The cardiac silhouette is enlarged. An aortic stent graft is seen.The pulmonary parenchyma demonstrates interstitial markings with atelectasis or consolidation in thelung bases and some costophrenic angle blunting. The support lines and tubes are unchanged. No pneumothorax is seen. Degenerative changes are noted. IMPRESSION: No significant change. Signed: Willian Mckeon Verified Date/Time: 07/05/2018 08:39:46 Reading Location: [facility] [address] Radiology Reading Room [id number] 04:33:00 Test Item Value Reference Range Comments MAGNESIUM (BEAKER) (test 2.6 mg/dL 1.6-2.6 Specimen slightly hemolyzed tdxw=415) [id number] 04:33:00 Test Item Value Reference Range Comments PHOSPHORUS (BEAKER) (test 2.9 mg/dL 2.3-4.7 Specimen slightly hemolyzed oarw=444) BASIC METABOLIC [id number] 04:33:00 Test Item Value Reference Range Comments SODIUM (BEAKER) (test 139 meq/L 136-145 egae=580) POTASSIUM (BEAKER) (test 4.5 meq/L 3.5-5.1 Specimen slightly tzek=769) hemolyzed CHLORIDE (BEAKER) (test 105 meq/L 98-107 lomy=657) CO2 (BEAKER) (test 28 meq/L 22-29 zwji=303) BLOOD UREA NITROGEN 26 mg/dL 7-21 (BEAKER) (test wncb=776) CREATININE (BEAKER) (test 1.32 mg/dL 0.57-1.25 Specimen slightly brkm=262) hemolyzed GLUCOSE RANDOM (BEAKER) 111 mg/dL 70-105 (test wssu=298) CALCIUM (BEAKER) (test 8.5 mg/dL 8.4-10.2 ewjo=898) EGFR (BEAKER) (test 48 mL/min/1.73 sq m ESTIMATED GFR IS NOT adfo=7306) ACCURATE CREATININE CLEARANCE IN PREDICTING GLOMERULAR FILTRATION RATE. ESTIMATED GFR IS NOT APPLICABLE FOR DIALYSIS PATIENTS. [id number] 04:23:00 Test Item Value Reference Range Comments PARTIAL THROMBOPLASTIN TIME (BEAKER) (test 49.0 seconds 22.5-36.0 rnuy=437) PROTHROMBIN [id number] 04:22:00 Test Item Value Reference Range Comments PROTIME (BEAKER) (test ydyq=438) 14.3 seconds 11.7-14.7 INR (BEAKER) (test wxsq=945) 1.1 <=5.9 RECOMMENDED COUMADIN/WARFARIN INR THERAPY RANGESSTANDARD DOSE: 2.0 - 3.0 Includes: PROPHYLAXIS forvenous thrombosis, systemic embolization; TREATMENT for venous thrombosis and/or pulmonary embolus.HIGH RISK: Target INR is 2.5-3.5 for patients with mechanical heart valves.CBC (HEMOGRAM ONLY)2018-07-05 04:13:00 Test Item Value Reference Range Comments WHITE BLOOD CELL COUNT (BEAKER) (test wujc=834) 6.6 K/ L 3.5-10.5 RED BLOOD CELL COUNT (BEAKER) (test tvjc=166) 2.60 M/ L 3.93-5.22 HEMOGLOBIN (BEAKER) (test jmjv=166) 7.9 GM/DL 11.2-15.7 HEMATOCRIT (BEAKER) (test hpoq=933) 26.5 % 34.1-44.9 MEAN CORPUSCULAR VOLUME (BEAKER) (test iyyb=780) 101.9 fL 79.4-94.8 MEAN CORPUSCULAR HEMOGLOBIN (BEAKER) (test 30.4 pg 25.6-32.2 tbuk=255) MEAN CORPUSCULAR HEMOGLOBIN CONC (BEAKER) (test 29.8 GM/DL 32.2-35.5 lsng=763) RED CELL DISTRIBUTION WIDTH (BEAKER) (test 17.4 % 11.7-14.4 zhom=734) PLATELET COUNT (BEAKER) (test kick=387) 248 K/CU MM 150-450 MEAN PLATELET VOLUME (BEAKER) (test lwuf=282) 10.4 fL 9.4-12.3 NUCLEATED RED BLOOD CELLS (BEAKER) (test 0 /100 WBC 0-0 vdiw=346) POCT-GLUCOSE [id number] 18:22:00 Test Item Value Reference Range Comments POC-GLUCOSE METER (BEAKER) 166 mg/dL 70-110 TESTED AT [address] (test qyab=9126) [facility] [id number] RAD, CHEST, 1 VIEW, NON [id number] 08:37:00Reason for exam:->post opShould this be performed at the bedside?->YesFINAL REPORT AP view of the chest dated 07/04/2018 COMPARISON: 07/03/2018 CLINICAL INFORMATION: post op Comment: Heart remains enlarged. Thoracic aorta is ectatic. Stent is seen inthe descending thoracic aorta. Pulmonary vasculature is unremarkable. Lungs are clear. No pulmonary infiltrate or pleural effusion is present. Impression: No interval change. Signed: Virginia Diaz [facility] Verified Date/Time: 07/04/2018 08:37:54 Reading Location: [facility] [address] Radiology Reading Room Electronically signed by: VIRGINIA DIAZ M.D. on 2018 08:37 [id number] 04:36:00 Test Item Value Reference Range Comments PARTIAL THROMBOPLASTIN TIME (BEAKER) (test 49.7 seconds 22.5-36.0 fbfe=069) PROTHROMBIN [id number] 04:35:00 Test Item Value Reference Range Comments PROTIME (BEAKER) (test bzvz=416) 15.0 seconds 11.7-14.7 INR (BEAKER) (test dloc=573) 1.2 <=5.9 RECOMMENDED COUMADIN/WARFARIN INR THERAPY RANGESSTANDARD DOSE: 2.0 - 3.0 Includes: PROPHYLAXIS forvenous thrombosis, systemic embolization; TREATMENT for venous thrombosis and/or pulmonary embolus.HIGH RISK: Target INR is 2.5-3.5 for patients with mechanical heart valves.[id number] 04:35:00 Test Item Value Reference Range Comments PHOSPHORUS (BEAKER) (test yjgg=287) 2.5 mg/dL 2.3-4.7 [id number] 04:35:00 Test Item Value Reference Range Comments MAGNESIUM (BEAKER) (test mdus=512) 2.2 mg/dL 1.6-2.6 BASIC METABOLIC [id number] 04:35:00 Test Item Value Reference Range Comments SODIUM (BEAKER) (test 138 meq/L 136-145 hugs=835) POTASSIUM (BEAKER) (test 3.8 meq/L 3.5-5.1 hile=474) CHLORIDE (BEAKER) (test 102 meq/L 98-107 boif=524) CO2 (BEAKER) (test 30 meq/L 22-29 fdvt=381) BLOOD UREA NITROGEN 28 mg/dL 7-21 (BEAKER) (test owur=945) CREATININE (BEAKER) (test 1.48 mg/dL 0.57-1.25 pkxb=873) GLUCOSE RANDOM (BEAKER) 175 mg/dL 70-105 (test bhzc=247) CALCIUM (BEAKER) (test 8.6 mg/dL 8.4-10.2 ghbt=292) EGFR (BEAKER) (test 42 mL/min/1.73 sq m ESTIMATED GFR IS NOT ucew=9455) ACCURATE CREATININE CLEARANCE IN PREDICTING GLOMERULAR FILTRATION RATE. ESTIMATED GFR IS NOT APPLICABLE FOR DIALYSIS PATIENTS. CBC (HEMOGRAM ONLY)2018-07-04 04:16:00 Test Item Value Reference Range Comments WHITE BLOOD CELL COUNT (BEAKER) (test tmii=120) 7.4 K/ L 3.5-10.5 RED BLOOD CELL COUNT (BEAKER) (test ikmz=804) 2.76 M/ L 3.93-5.22 HEMOGLOBIN (BEAKER) (test ftrg=087) 8.5 GM/DL 11.2-15.7 HEMATOCRIT (BEAKER) (test iail=458) 28.1 % 34.1-44.9 MEAN CORPUSCULAR VOLUME (BEAKER) (test kvcd=258) 101.8 fL 79.4-94.8 MEAN CORPUSCULAR HEMOGLOBIN (BEAKER) (test 30.8 pg 25.6-32.2 piie=112) MEAN CORPUSCULAR HEMOGLOBIN CONC (BEAKER) (test 30.2 GM/DL 32.2-35.5 uakb=841) RED CELL DISTRIBUTION WIDTH (BEAKER) (test 17.7 % 11.7-14.4 tcrg=410) PLATELET COUNT (BEAKER) (test zyjx=123) 268 K/CU MM 150-450 MEAN PLATELET VOLUME (BEAKER) (test vqmf=171) 10.2 fL 9.4-12.3 NUCLEATED RED BLOOD CELLS (BEAKER) (test 0 /100 WBC 0-0 dyvz=680) [id number] 10:56:00 Test Item Value Reference Range Comments POTASSIUM (BEAKER) (test tygi=153) 4.3 meq/L 3.5-5.1 Check Serum Potassium level 30 minutes after IV potassium replacement completed.RAD, CHEST, 1 VIEW, NON [id number] 08:24:00Reason for exam:-> post opShould this be performed at the bedside?->YesFINAL REPORT Portable chest. CLINICAL HISTORY: post op. COMPARISON STUDY: Chest x -ray from yesterday. FINDINGS: The cardiac silhouette is enlarged. An aortic stent is seen. The pulmonary parenchyma demonstrates interstitial markings with atelectatic changes in the lung bases. Nopneumothorax is seen. Degenerative changes are noted. IMPRESSION: No significant change. Signed: Willian Mckeon MDReport Verified Date/Time: 07/03/2018 08:24:18 Reading Location: [facility] [address] Radiology Reading Room POCT-GLUCOSE [id number] 08:16:00 Test Item Value Reference Range Comments POC-GLUCOSE METER (BEAKER) 164 mg/dL 70-110 TESTED AT [facility] [address] [facility] (test ainf=8923) [facility] [address] RAD, ABDOMEN/KUB, 1 VIEW [id number] 06:21:00Reason for exam:->abd painShould this be performed at the bedside?->YesFINAL REPORT CLINICAL HISTORY: abd pain TECHNIQUE: RAD, [...] details on intrathoracic contents. Signed: Maryana Spann MDReport Verified Date/Time: 07/03/2018 06:21:16 Reading Location: [address] Reading Room [id number] 04:00:00 Test Item Value Reference Range Comments PHOSPHORUS (BEAKER) (test asox=505) 2.3 mg/dL 2.3-4.7 [id number] 04:00:00 Test Item Value Reference Range Comments MAGNESIUM (BEAKER) (test lnrg=759) 1.9 mg/dL 1.6-2.6 BASIC METABOLIC [id number] 04:00:00 Test Item Value Reference Range Comments SODIUM (BEAKER) (test 139 meq/L 136-145 rxbu=953) POTASSIUM (BEAKER) (test 3.5 meq/L 3.5-5.1 iywc=073) CHLORIDE (BEAKER) (test 103 meq/L 98-107 mppd=844) CO2 (BEAKER) (test 27 meq/L 22-29 emdr=596) BLOOD UREA NITROGEN 27 mg/dL 7-21 (BEAKER) (test jtnd=464) CREATININE (BEAKER) (test 1.40 mg/dL 0.57-1.25 upwy=245) GLUCOSE RANDOM (BEAKER) 123 mg/dL 70-105 (test qcds=374) CALCIUM (BEAKER) (test 8.9 mg/dL 8.4-10.2 hpxc=747) EGFR (BEAKER) (test 45 mL/min/1.73 sq m ESTIMATED GFR IS NOT lwhj=3160) ACCURATE CREATININE CLEARANCE IN PREDICTING GLOMERULAR FILTRATION RATE. ESTIMATED GFR IS NOT APPLICABLE FOR DIALYSIS PATIENTS. [id number] 03:59:00 Test Item Value Reference Range Comments PARTIAL THROMBOPLASTIN TIME (BEAKER) (test 48.9 seconds 22.5-36.0 ecdi=375) PROTHROMBIN TIME/[id number] 03:58:00 Test Item Value Reference Range Comments PROTIME (BEAKER) (test rrxy=707) 15.3 seconds 11.7-14.7 INR (BEAKER) (test ftzp=239) 1.2 <=5.9 RECOMMENDED COUMADIN/WARFARIN INR THERAPY RANGESSTANDARD DOSE: 2.0 - 3.0 Includes: PROPHYLAXIS forvenous thrombosis, systemic embolization; TREATMENT for venous thrombosis and/or pulmonary embolus.HIGH RISK: Target INR is 2.5-3.5 for patients with mechanical heart valves.CBC (HEMOGRAM ONLY)2018-07-03 03:39:00 Test Item Value Reference Range Comments WHITE BLOOD CELL COUNT (BEAKER) (test yjic=541) 8.1 K/ L 3.5-10.5 RED BLOOD CELL COUNT (BEAKER) (test vpou=075) 2.90 M/ L 3.93-5.22 HEMOGLOBIN (BEAKER) (test ruhu=617) 9.0 GM/DL 11.2-15.7 HEMATOCRIT (BEAKER) (test bjtn=234) 29.4 % 34.1-44.9 MEAN CORPUSCULAR VOLUME (BEAKER) (test expp=682) 101.4 fL 79.4-94.8 MEAN CORPUSCULAR HEMOGLOBIN (BEAKER) (test 31.0 pg 25.6-32.2 qxzm=221) MEAN CORPUSCULAR HEMOGLOBIN CONC (BEAKER) (test 30.6 GM/DL 32.2-35.5 micq=466) RED CELL DISTRIBUTION WIDTH (BEAKER) (test 17.8 % 11.7-14.4 gqtg=274) PLATELET COUNT (BEAKER) (test rwbr=548) 245 K/CU MM 150-450 MEAN PLATELET VOLUME (BEAKER) (test cluh=939) 9.8 fL 9.4-12.3 NUCLEATED RED BLOOD CELLS (BEAKER) (test 0 /100 WBC 0-0 wego=403) OXYGEN SATURATION, [id number] 10:53:00 Test Item Value Reference Range Comments O2 SATURATION (MEASURED) (BEAKER) (test nmen=1377) 50.1 % OXYGEN SATURATION, [id number] 08:54:00 Test Item Value Reference Range Comments O2 SATURATION (MEASURED) (BEAKER) (test lpre=1852) 45.3 % BLOOD GAS, [id number] 08:54:00 Test Item Value Reference Range Comments PH ARTERIAL (BEAKER) (test slgy=542) 7.49 7.35-7.45 PCO2 ARTERIAL (BEAKER) (test ohor=385) 39 mmHg 35-45 PO2 ARTERIAL (BEAKER) (test oiop=453) 64 mmHg 80-90 O2 SATURATION ARTERIAL (BEAKER) (test lsgq=488) 94.6 % 96.0-97.0 HCO3 ARTERIAL (BEAKER) (test cbjx=252) 29 mmol/L 21-29 BASE EXCESS ARTERIAL (BEAKER) (test qjwm=861) 5.1 mmol/L -2.0-3.0 PATIENT TEMPERATURE (BEAKER) (test qhea=3653) 36.1 C FIO2 (BEAKER) (test efdm=9764) 32.0 % RAD, CHEST, 1 VIEW, NON [id number] 06:40:00Reason for exam:->ETTShould this be performed at the bedside?->YesFINAL REPORT RAD , CHEST, 1 VIEW, NON DEPT INDICATION: ETT COMPARISON: Prior day's exam FINDINGS : Portable frontal view of the chest. IMPRESSION: Support Lines: Stable. Lungs and pleura: Unchanged airspace and pleural opacities. No pneumothorax.Heart and mediastinum: Stable contours. Stable surgical changes.Additional findings: None. Signed: Maryana Spann MDReport Verified Date/Time: 07/02/2018 06:40:32 Reading Location: [address] Transitional Reading Room CBC W/PLT COUNT & AUTO [id number] 05:31 :00 Test Item Value Reference Range Comments WHITE BLOOD CELL COUNT (BEAKER) (test wvmy=075) 7.9 K/ L 3.5-10.5 RED BLOOD CELL COUNT (BEAKER) (test ttab=316) 2.83 M/ L 3.93-5.22 HEMOGLOBIN (BEAKER) (test ocrx=685) 8.6 GM/DL 11.2-15.7 HEMATOCRIT (BEAKER) (test tfvy=836) 28.4 % 34.1-44.9 MEAN CORPUSCULAR VOLUME (BEAKER) (test bvbj=561) 100.4 fL 79.4-94.8 MEAN CORPUSCULAR HEMOGLOBIN (BEAKER) (test 30.4 pg 25.6-32.2 uczj=343) MEAN CORPUSCULAR HEMOGLOBIN CONC (BEAKER) (test 30.3 GM/DL 32.2-35.5 krzm=858) RED CELL DISTRIBUTION WIDTH (BEAKER) (test 17.9 % 11.7-14.4 zxdy=773) PLATELET COUNT (BEAKER) (test vqjm=023) 222 K/CU MM 150-450 MEAN PLATELET VOLUME (BEAKER) (test hepk=974) 9.9 fL 9.4-12.3 NUCLEATED RED BLOOD CELLS (BEAKER) (test 0 /100 WBC 0-0 mneo=534) NEUTROPHILS RELATIVE PERCENT (BEAKER) (test 85 % kpxe=803) LYMPHOCYTES RELATIVE PERCENT (BEAKER) (test 6 % scts=344) MONOCYTES RELATIVE PERCENT (BEAKER) (test 8 % qdsv=136) EOSINOPHILS RELATIVE PERCENT (BEAKER) (test 1 % fyss=864) BASOPHILS RELATIVE PERCENT (BEAKER) (test 0 % semd=983) NEUTROPHILS ABSOLUTE COUNT (BEAKER) (test 6.67 K/ L 1.56-6.13 eout=948) LYMPHOCYTES ABSOLUTE COUNT (BEAKER) (test 0.46 K/ L 1.18-3.74 pmxl=000) MONOCYTES ABSOLUTE COUNT (BEAKER) (test 0.64 K/ L 0.24-0.36 reft=657) EOSINOPHILS ABSOLUTE COUNT (BEAKER) (test 0.06 K/ L 0.04-0.36 wgml=403) BASOPHILS ABSOLUTE COUNT (BEAKER) (test 0.02 K/ L 0.01-0.08 tbfz=187) IMMATURE GRANULOCYTES-RELATIVE PERCENT (BEAKER) 1 % 0-1 (test obzw=2488) BASIC METABOLIC [id number] 04:54:00 Test Item Value Reference Range Comments SODIUM (BEAKER) (test 140 meq/L 136-145 gapg=340) POTASSIUM (BEAKER) (test 3.7 meq/L 3.5-5.1 aqak=081) CHLORIDE (BEAKER) (test 104 meq/L 98-107 ekqd=543) CO2 (BEAKER) (test 28 meq/L 22-29 nyso=976) BLOOD UREA NITROGEN 29 mg/dL 7-21 (BEAKER) (test mbgj=963) CREATININE (BEAKER) (test 1.49 mg/dL 0.57-1.25 dcuy=277) GLUCOSE RANDOM (BEAKER) 107 mg/dL 70-105 (test jejo=489) CALCIUM (BEAKER) (test 8.9 mg/dL 8.4-10.2 natg=726) EGFR (BEAKER) (test 42 mL/min/1.73 sq m ESTIMATED GFR IS NOT dqri=3074) ACCURATE CREATININE CLEARANCE IN PREDICTING GLOMERULAR FILTRATION RATE. ESTIMATED GFR IS NOT APPLICABLE FOR DIALYSIS PATIENTS. BASIC METABOLIC [id number] 18:41:00 Test Item Value Reference Range Comments SODIUM (BEAKER) (test 140 meq/L 136-145 ulsb=813) POTASSIUM (BEAKER) (test 4.1 meq/L 3.5-5.1 ezvm=920) CHLORIDE (BEAKER) (test 104 meq/L 98-107 ywdc=675) CO2 (BEAKER) (test 25 meq/L 22-29 uiyo=424) BLOOD UREA NITROGEN 31 mg/dL 7-21 (BEAKER) (test jezn=725) CREATININE (BEAKER) (test 1.55 mg/dL 0.57-1.25 pofw=280) GLUCOSE RANDOM (BEAKER) 127 mg/dL 70-105 (test nrbx=280) CALCIUM (BEAKER) (test 9.0 mg/dL 8.4-10.2 xfsr=632) EGFR (BEAKER) (test 40 mL/min/1.73 sq m ESTIMATED GFR IS NOT oqwf=5955) ACCURATE CREATININE CLEARANCE IN PREDICTING GLOMERULAR FILTRATION RATE. ESTIMATED GFR IS NOT APPLICABLE FOR DIALYSIS PATIENTS. BLOOD GAS, [id number] 18:12:00 Test Item Value Reference Range Comments PH ARTERIAL (BEAKER) (test gtik=918) 7.50 7.35-7.45 PCO2 ARTERIAL (BEAKER) (test rhoz=750) 39 mmHg 35-45 PO2 ARTERIAL (BEAKER) (test luwg=864) 59 mmHg 80-90 O2 SATURATION ARTERIAL (BEAKER) (test azvu=884) 92.7 % 96.0-97.0 HCO3 ARTERIAL (BEAKER) (test aqlx=221) 30 mmol/L 21-29 BASE EXCESS ARTERIAL (BEAKER) (test wtki=321) 6.0 mmol/L -2.0-3.0 PATIENT TEMPERATURE (BEAKER) (test yqsp=9576) 36.9 C FIO2 (BEAKER) (test kdya=9002) 32.0 % RAD, CHEST, 1 VIEW, NON [id number] 07:32:00Reason for exam:->ETTShould this be performed at the bedside?->YesFINAL REPORT Chest one view. Clinical history: ETT Comparison: 06/30/2018 Discussion: A frontal chest is provided. Cardiomediastinal contours are unchanged. ET has been removed. Left IJ line is unchanged. There is unchanged mild vascular congestion and interstitial edema. Probable small left effusion. No pneumothorax. Signed: Morgan Cheng Verified Date/Time: 07/01/2018 07:32: 43 Reading Location: [address] Neuro Reading Room BASIC METABOLIC [id number] 06:20:00 Test Item Value Reference Range Comments SODIUM (BEAKER) (test 142 meq/L 136-145 bmev=911) POTASSIUM (BEAKER) (test 4.3 meq/L 3.5-5.1 idrl=038) CHLORIDE (BEAKER) (test 106 meq/L 98-107 ngkh=259) CO2 (BEAKER) (test 27 meq/L 22-29 hlvc=247) BLOOD UREA NITROGEN 34 mg/dL 7-21 (BEAKER) (test ctng=445) CREATININE (BEAKER) (test 1.67 mg/dL 0.57-1.25 czpx=886) GLUCOSE RANDOM (BEAKER) 130 mg/dL 70-105 (test fnev=763) CALCIUM (BEAKER) (test 9.1 mg/dL 8.4-10.2 zmaw=040) EGFR (BEAKER) (test 37 mL/min/1.73 sq m ESTIMATED GFR IS NOT ymjm=7236) ACCURATE CREATININE CLEARANCE IN PREDICTING GLOMERULAR FILTRATION RATE. ESTIMATED GFR IS NOT APPLICABLE FOR DIALYSIS PATIENTS. CBC W/PLT COUNT & AUTO [id number] 05:56:00 Test Item Value Reference Range Comments WHITE BLOOD CELL COUNT (BEAKER) (test srro=346) 6.9 K/ L 3.5-10.5 RED BLOOD CELL COUNT (BEAKER) (test bhla=449) 2.88 M/ L 3.93-5.22 HEMOGLOBIN (BEAKER) (test xlec=505) 8.9 GM/DL 11.2-15.7 HEMATOCRIT (BEAKER) (test etyz=860) 29.5 % 34.1-44.9 MEAN CORPUSCULAR VOLUME (BEAKER) (test wecf=243) 102.4 fL 79.4-94.8 MEAN CORPUSCULAR HEMOGLOBIN (BEAKER) (test 30.9 pg 25.6-32.2 xvcp=905) MEAN CORPUSCULAR HEMOGLOBIN CONC (BEAKER) (test 30.2 GM/DL 32.2-35.5 oegy=139) RED CELL DISTRIBUTION WIDTH (BEAKER) (test 17.8 % 11.7-14.4 sysl=388) PLATELET COUNT (BEAKER) (test ljov=979) 211 K/CU MM 150-450 MEAN PLATELET VOLUME (BEAKER) (test dfon=755) 9.6 fL 9.4-12.3 NUCLEATED RED BLOOD CELLS (BEAKER) (test 0 /100 WBC 0-0 amrn=561) NEUTROPHILS RELATIVE PERCENT (BEAKER) (test 86 % pyhl=688) LYMPHOCYTES RELATIVE PERCENT (BEAKER) (test 5 % eygn=158) MONOCYTES RELATIVE PERCENT (BEAKER) (test 8 % mnfu=474) EOSINOPHILS RELATIVE PERCENT (BEAKER) (test 0 % jbie=676) BASOPHILS RELATIVE PERCENT (BEAKER) (test 0 % tqwi=285) NEUTROPHILS ABSOLUTE COUNT (BEAKER) (test 5.94 K/ L 1.56-6.13 khwr=593) LYMPHOCYTES ABSOLUTE COUNT (BEAKER) (test 0.37 K/ L 1.18-3.74 zomv=273) MONOCYTES ABSOLUTE COUNT (BEAKER) (test 0.53 K/ L 0.24-0.36 lmsv=345) EOSINOPHILS ABSOLUTE COUNT (BEAKER) (test 0.02 K/ L 0.04-0.36 slcm=826) BASOPHILS ABSOLUTE COUNT (BEAKER) (test 0.01 K/ L 0.01-0.08 vslh=461) IMMATURE GRANULOCYTES-RELATIVE PERCENT (BEAKER) 0 % 0-1 (test zjgg=3687) [id number] 15:31:00 Test Item Value Reference Range Comments MAGNESIUM (BEAKER) (test cxcg=913) 2.2 mg/dL 1.6-2.6 BASIC METABOLIC [id number] 15:31:00 Test Item Value Reference Range Comments SODIUM (BEAKER) (test 137 meq/L 136-145 cisr=406) POTASSIUM (BEAKER) (test 4.5 meq/L 3.5-5.1 habp=469) CHLORIDE (BEAKER) (test 102 meq/L 98-107 ziob=520) CO2 (BEAKER) (test 24 meq/L 22-29 amys=271) BLOOD UREA NITROGEN 36 mg/dL 7-21 (BEAKER) (test cnur=996) CREATININE (BEAKER) (test 1.78 mg/dL 0.57-1.25 mwqi=541) GLUCOSE RANDOM (BEAKER) 179 mg/dL 70-105 (test vsey=001) CALCIUM (BEAKER) (test 8.8 mg/dL 8.4-10.2 llfd=207) EGFR (BEAKER) (test 34 mL/min/1.73 sq m ESTIMATED GFR IS NOT nppo=5576) ACCURATE CREATININE CLEARANCE IN PREDICTING GLOMERULAR FILTRATION RATE. ESTIMATED GFR IS NOT APPLICABLE FOR DIALYSIS PATIENTS. CBC W/PLT COUNT & AUTO [id number] 15:17:00 Test Item Value Reference Range Comments WHITE BLOOD CELL COUNT (BEAKER) (test ieia=811) 7.3 K/ L 3.5-10.5 RED BLOOD CELL COUNT (BEAKER) (test nkec=999) 3.02 M/ L 3.93-5.22 HEMOGLOBIN (BEAKER) (test rydm=596) 9.5 GM/DL 11.2-15.7 HEMATOCRIT (BEAKER) (test voqe=883) 31.3 % 34.1-44.9 MEAN CORPUSCULAR VOLUME (BEAKER) (test bsha=016) 103.6 fL 79.4-94.8 MEAN CORPUSCULAR HEMOGLOBIN (BEAKER) (test 31.5 pg 25.6-32.2 hsek=753) MEAN CORPUSCULAR HEMOGLOBIN CONC (BEAKER) (test 30.4 GM/DL 32.2-35.5 eydf=941) RED CELL DISTRIBUTION WIDTH (BEAKER) (test 17.8 % 11.7-14.4 bzus=926) PLATELET COUNT (BEAKER) (test truk=790) 229 K/CU MM 150-450 MEAN PLATELET VOLUME (BEAKER) (test gadt=990) 9.7 fL 9.4-12.3 NUCLEATED RED BLOOD CELLS (BEAKER) (test 0 /100 WBC 0-0 mtfx=793) NEUTROPHILS RELATIVE PERCENT (BEAKER) (test 91 % czbr=589) LYMPHOCYTES RELATIVE PERCENT (BEAKER) (test 3 % gtle=612) MONOCYTES RELATIVE PERCENT (BEAKER) (test 5 % giry=408) EOSINOPHILS RELATIVE PERCENT (BEAKER) (test 0 % qdbl=420) BASOPHILS RELATIVE PERCENT (BEAKER) (test 0 % ywjj=520) NEUTROPHILS ABSOLUTE COUNT (BEAKER) (test 6.62 K/ L 1.56-6.13 gcnx=654) LYMPHOCYTES ABSOLUTE COUNT (BEAKER) (test 0.23 K/ L 1.18-3.74 xlze=027) MONOCYTES ABSOLUTE COUNT (BEAKER) (test 0.39 K/ L 0.24-0.36 znuq=068) EOSINOPHILS ABSOLUTE COUNT (BEAKER) (test 0.00 K/ L 0.04-0.36 majz=070) BASOPHILS ABSOLUTE COUNT (BEAKER) (test 0.02 K/ L 0.01-0.08 oylt=354) IMMATURE GRANULOCYTES-RELATIVE PERCENT (BEAKER) 0 % 0-1 (test syim=0475) RAD, CHEST, 1 VIEW, NON [id number] 08:50:00Reason for exam:->ETTShould this be performed at the bedside?->YesFINAL REPORT INDICATION: ETT COMPARISON:June 30 at 1:59 AM TECHNIQUE: Chest radiograph, single view, portable technique. FINDINGS / IMPRESSION: Endotracheal tube is advanced nowterminating 2.0 cm above the toro. Left internal jugular line turns leftward and upward, malpositioned. Elevated left hemidiaphragm again demonstrated. There is a endograft stent of the descending thoracic aorta. Heart shadow is enlarged which in part may be related to portable technique. There is probable central venous congestion without overt pulmonary edema. No consolidation, pneumothorax, or large pleural effusion. Signed: Geo Rico MDReport Verified Date/Time: 06/30/2018 08:50:44 Reading Location: [address] Ultrasound Reading Room [id number] 06:52:00 Test Item Value Reference Range Comments ACTIVATED CLOTTING TIME 147 sec TESTED AT [address] (BEAKER) (test xtxl=746) [place] [address] [id number] 06:52:00 Test Item Value Reference Range Comments ACTIVATED CLOTTING TIME 252 sec TESTED AT [address] (BEAKER) (test pvlk=979) [place] [address] [id number] 06:52:00 Test Item Value Reference Range Comments ACTIVATED CLOTTING TIME 257 sec TESTED AT [address] (BEAKER) (test jobh=377) [place] [address] [id number] 06:52:00 Test Item Value Reference Range Comments ACTIVATED CLOTTING TIME 246 sec TESTED AT [address] (BEAKER) (test zvii=454) [place] [address] LACTIC ACID, [id number] 05:16:00 Test Item Value Reference Range Comments LACTATE BLOOD ARTERIAL (2) (BEAKER) (test 1.0 mmol/L 0.5-2.2 uctq=5731) BLOOD GAS, [id number] 05:06:00 Test Item Value Reference Range Comments PH ARTERIAL (BEAKER) (test zuee=558) 7.38 7.35-7.45 PCO2 ARTERIAL (BEAKER) (test grrj=825) 40 mmHg 35-45 PO2 ARTERIAL (BEAKER) (test wtzo=790) 107 mmHg 80-90 O2 SATURATION ARTERIAL (BEAKER) (test oljh=334) 97.9 % 96.0-97.0 HCO3 ARTERIAL (BEAKER) (test dliv=690) 23 mmol/L 21-29 BASE EXCESS ARTERIAL (BEAKER) (test fndx=327) -2.1 mmol/L -2.0-3.0 PATIENT TEMPERATURE (BEAKER) (test nnbo=3464) 36.7 C FIO2 (BEAKER) (test ghdx=3939) 60.0 % CBC W/PLT COUNT & AUTO [id number] 04:59:00 Test Item Value Reference Range Comments WHITE BLOOD CELL COUNT (BEAKER) (test fnlh=650) 8.9 K/ L 3.5-10.5 RED BLOOD CELL COUNT (BEAKER) (test jqxy=851) 3.28 M/ L 3.93-5.22 HEMOGLOBIN (BEAKER) (test dgvx=114) 10.0 GM/DL 11.2-15.7 HEMATOCRIT (BEAKER) (test htjk=764) 34.4 % 34.1-44.9 MEAN CORPUSCULAR VOLUME (BEAKER) (test ppfh=295) 104.9 fL 79.4-94.8 MEAN CORPUSCULAR HEMOGLOBIN (BEAKER) (test 30.5 pg 25.6-32.2 scwe=466) MEAN CORPUSCULAR HEMOGLOBIN CONC (BEAKER) (test 29.1 GM/DL 32.2-35.5 yhvw=387) RED CELL DISTRIBUTION WIDTH (BEAKER) (test 17.6 % 11.7-14.4 brer=703) PLATELET COUNT (BEAKER) (test lvlh=416) 276 K/CU MM 150-450 MEAN PLATELET VOLUME (BEAKER) (test ymmi=457) 9.7 fL 9.4-12.3 NUCLEATED RED BLOOD CELLS (BEAKER) (test 0 /100 WBC 0-0 avov=894) NEUTROPHILS RELATIVE PERCENT (BEAKER) (test 90 % gqfg=886) LYMPHOCYTES RELATIVE PERCENT (BEAKER) (test 3 % uwax=965) MONOCYTES RELATIVE PERCENT (BEAKER) (test 6 % lbpm=244) EOSINOPHILS RELATIVE PERCENT (BEAKER) (test 0 % ibvy=663) BASOPHILS RELATIVE PERCENT (BEAKER) (test 0 % ysts=267) NEUTROPHILS ABSOLUTE COUNT (BEAKER) (test 8.00 K/ L 1.56-6.13 oewc=703) LYMPHOCYTES ABSOLUTE COUNT (BEAKER) (test 0.30 K/ L 1.18-3.74 ugrq=507) MONOCYTES ABSOLUTE COUNT (BEAKER) (test 0.51 K/ L 0.24-0.36 kehb=493) EOSINOPHILS ABSOLUTE COUNT (BEAKER) (test 0.01 K/ L 0.04-0.36 hhvo=221) BASOPHILS ABSOLUTE COUNT (BEAKER) (test 0.02 K/ L 0.01-0.08 snqs=616) IMMATURE GRANULOCYTES-RELATIVE PERCENT (BEAKER) 1 % 0-1 (test nbvu=4344) B-TYPE NATRIURETIC FACTOR (BNP)2018-06-30 04:19:00 Test Item Value Reference Range Comments B-TYPE NATRIURETIC PEPTIDE (BEAKER) (test 37650 pg/mL 0-100 xgth=157) HEPATIC FUNCTION [id number] 04:01:00 Test Item Value Reference Range Comments TOTAL PROTEIN (BEAKER) (test hsxx=901) 6.5 gm/dL 6.0-8.3 ALBUMIN (BEAKER) (test etrw=9634) 3.4 g/dL 3.5-5.0 BILIRUBIN TOTAL (BEAKER) (test brlk=327) 1.2 mg/dL 0.2-1.2 BILIRUBIN DIRECT (BEAKER) (test etrt=601) 0.8 mg/dL 0.1-0.5 ALKALINE PHOSPHATASE (BEAKER) (test pzpc=178) 103 U/L 40-150 AST (SGOT) (BEAKER) (test csbj=462) 17 U/L 5-34 ALT (SGPT) (BEAKER) (test aqdn=662) 15 U/L 6-55 RAD, CHEST, 1 VIEW, NON [id number] 02:31:00Reason for exam:->ETTShould this be performed at the bedside?->YesFINAL REPORT RAD , CHEST, 1 VIEW, NON DEPT INDICATION: ETT COMPARISON: Prior day's exam FINDINGS : Portable frontal view of the chest. IMPRESSION: Support Lines: Endotracheal tube terminates 6.9 cm above the toro. Left IJ central venous catheter with tip overlying the left apex, point of termination unclear, however with adjacent airspace opacity in the left apex which couldbe projectional however catheter associated hematoma cannot be excluded on this imaging, correlate with functioning and recommend close attention on follow-up imaging. Lungs and pleura: Heterogeneous airspace opacities of the bilateral bases favored to represent atelectasis. Small bilateral pleural effusions. No pneumothorax.Heart and mediastinum: Stable contours. Postsurgical changes of an stent graft in the descending thoracic aorta.Additional findings: None. Signed: Maryana Spann Verified Date/Time: 06/30/2018 02:31:37 Reading Location: [facility] C0[facility] Transitional Reading Room [id number] 02:27:00 Test Item Value Reference Range Comments PARTIAL THROMBOPLASTIN TIME (BEAKER) (test 39.5 seconds 22.5-36.0 phgp=317) PROTHROMBIN TIME/[id number] 02:26:00 Test Item Value Reference Range Comments PROTIME (BEAKER) (test uetn=833) 16.5 seconds 11.7-14.7 INR (BEAKER) (test ayfr=436) 1.3 <=5.9 RECOMMENDED COUMADIN/WARFARIN INR THERAPY RANGESSTANDARD DOSE: 2.0 - 3.0 Includes: PROPHYLAXIS forvenous thrombosis, systemic embolization; TREATMENT for venous thrombosis and/or pulmonary embolus.HIGH RISK: Target INR is 2.5-3.5 for patients with mechanical heart valves.BASIC METABOLIC [id number] 02:09: 00 Test Item Value Reference Range Comments SODIUM (BEAKER) (test 137 meq/L 136-145 raez=437) POTASSIUM (BEAKER) (test 4.9 meq/L 3.5-5.1 irrk=222) CHLORIDE (BEAKER) (test 103 meq/L 98-107 mcpy=075) CO2 (BEAKER) (test 23 meq/L 22-29 ytvp=323) BLOOD UREA NITROGEN 32 mg/dL 7-21 (BEAKER) (test rpda=966) CREATININE (BEAKER) (test 1.74 mg/dL 0.57-1.25 bbqq=860) GLUCOSE RANDOM (BEAKER) 143 mg/dL 70-105 (test sxjg=264) CALCIUM (BEAKER) (test 8.8 mg/dL 8.4-10.2 ryxp=669) EGFR (BEAKER) (test 35 mL/min/1.73 sq m ESTIMATED GFR IS NOT trgv=3387) ACCURATE CREATININE CLEARANCE IN PREDICTING GLOMERULAR FILTRATION RATE. ESTIMATED GFR IS NOT APPLICABLE FOR DIALYSIS PATIENTS. LACTIC ACID, [id number] 02:06:00 Test Item Value Reference Range Comments LACTATE BLOOD ARTERIAL (2) (BEAKER) (test 0.8 mmol/L 0.5-2.2 ghod=0433) OXYGEN SATURATION, [id number] 01:59:00 Test Item Value Reference Range Comments O2 SATURATION (MEASURED) (BEAKER) (test ejwv=6764) 79.3 % BLOOD GAS, [id number] 01:58:00 Test Item Value Reference Range Comments PH ARTERIAL (BEAKER) (test bqom=678) 7.34 7.35-7.45 PCO2 ARTERIAL (BEAKER) (test rdiz=490) 50 mmHg 35-45 PO2 ARTERIAL (BEAKER) (test jfat=565) 78 mmHg 80-90 O2 SATURATION ARTERIAL (BEAKER) (test shjg=631) 95.4 % 96.0-97.0 HCO3 ARTERIAL (BEAKER) (test wisy=206) 27 mmol/L 21-29 BASE EXCESS ARTERIAL (BEAKER) (test yklt=624) 0.3 mmol/L -2.0-3.0 PATIENT TEMPERATURE (BEAKER) (test xdrw=7943) 35.8 C FIO2 (BEAKER) (test iulv=7818) 60.0 % CBC W/PLT COUNT & AUTO [id number] 01:57:00 Test Item Value Reference Range Comments WHITE BLOOD CELL COUNT (BEAKER) (test atpk=524) 9.7 K/ L 3.5-10.5 RED BLOOD CELL COUNT (BEAKER) (test fuyx=756) 3.18 M/ L 3.93-5.22 HEMOGLOBIN (BEAKER) (test mkxi=658) 9.8 GM/DL 11.2-15.7 HEMATOCRIT (BEAKER) (test pwqo=429) 33.3 % 34.1-44.9 MEAN CORPUSCULAR VOLUME (BEAKER) (test pcqz=214) 104.7 fL 79.4-94.8 MEAN CORPUSCULAR HEMOGLOBIN (BEAKER) (test 30.8 pg 25.6-32.2 naif=888) MEAN CORPUSCULAR HEMOGLOBIN CONC (BEAKER) (test 29.4 GM/DL 32.2-35.5 mtee=308) RED CELL DISTRIBUTION WIDTH (BEAKER) (test 17.5 % 11.7-14.4 qobb=702) PLATELET COUNT (BEAKER) (test ccmc=998) 289 K/CU MM 150-450 MEAN PLATELET VOLUME (BEAKER) (test brpn=904) 9.7 fL 9.4-12.3 NUCLEATED RED BLOOD CELLS (BEAKER) (test 0 /100 WBC 0-0 bjcg=796) NEUTROPHILS RELATIVE PERCENT (BEAKER) (test 88 % jdhw=257) LYMPHOCYTES RELATIVE PERCENT (BEAKER) (test 5 % natv=057) MONOCYTES RELATIVE PERCENT (BEAKER) (test 4 % triw=390) EOSINOPHILS RELATIVE PERCENT (BEAKER) (test 1 % qcuj=581) BASOPHILS RELATIVE PERCENT (BEAKER) (test 0 % jmzi=475) NEUTROPHILS ABSOLUTE COUNT (BEAKER) (test 8.53 K/ L 1.56-6.13 etnc=724) LYMPHOCYTES ABSOLUTE COUNT (BEAKER) (test 0.48 K/ L 1.18-3.74 xjve=918) MONOCYTES ABSOLUTE COUNT (BEAKER) (test 0.41 K/ L 0.24-0.36 dywm=457) EOSINOPHILS ABSOLUTE COUNT (BEAKER) (test 0.13 K/ L 0.04-0.36 uuuk=989) BASOPHILS ABSOLUTE COUNT (BEAKER) (test 0.04 K/ L 0.01-0.08 xuzm=551) IMMATURE GRANULOCYTES-RELATIVE PERCENT (BEAKER) 1 % 0-1 (test bdkx=9194) FILTER IONIZED [id number] 23:29:00 Test Item Value Reference Range Comments FILTER IONIZED CALCIUM (BEAKER) (test pcet=2481) 1.14 mmol/L Reference Range: No NormalsBLOOD GAS, [id number] 23:29:00 Test Item Value Reference Range Comments PH ARTERIAL (BEAKER) (test urrk=255) 7.38 7.35-7.45 PCO2 ARTERIAL (BEAKER) (test rhpu=158) 49 mmHg 35-45 PO2 ARTERIAL (BEAKER) (test diar=541) 202 mmHg 80-90 O2 SATURATION ARTERIAL (BEAKER) (test xaah=596) 99.4 % 96.0-97.0 HCO3 ARTERIAL (BEAKER) (test yohl=967) 29 mmol/L 21-29 BASE EXCESS ARTERIAL (BEAKER) (test hypk=949) 2.6 mmol/L -2.0-3.0 PATIENT TEMPERATURE (BEAKER) (test sufx=7544) 35.6 C FIO2 (BEAKER) (test xfsq=8901) 100.0 % HGB/HCT (H&H) - STAT [id number] 23:28:00 Test Item Value Reference Range Comments HEMOGLOBIN (BEAKER) (test gszv=427) 10.7 g/dL 12.0-15.0 HEMATOCRIT (BEAKER) (test sqrk=698) 31.0 % 36.0-45.0 GLUCOSE-STAT [id number] 23:25:00 Test Item Value Reference Range Comments GLUCOSE RANDOM (BEAKER) (test fkzt=415) 97 mg/dL 70-110 SODIUM NA-STAT [id number] 23:25:00 Test Item Value Reference Range Comments SODIUM (BEAKER) (test wtom=869) 137 meq/L 135-148 POTASSIUM-STAT [id number] 23:25:00 Test Item Value Reference Range Comments POTASSIUM (BEAKER) (test smzw=761) 4.4 meq/L 3.6-5.5 B-TYPE NATRIURETIC FACTOR (BNP)2018-06-29 21:59:00 Test Item Value Reference Range Comments B-TYPE NATRIURETIC PEPTIDE (BEAKER) (test 59486 pg/mL 0-100 zmgx=789) BASIC METABOLIC [id number] 21:31:00 Test Item Value Reference Range Comments SODIUM (BEAKER) (test 140 meq/L 136-145 ctyn=192) POTASSIUM (BEAKER) (test 4.6 meq/L 3.5-5.1 gbku=071) CHLORIDE (BEAKER) (test 104 meq/L 98-107 qczq=120) CO2 (BEAKER) (test 25 meq/L 22-29 adav=373) BLOOD UREA NITROGEN 33 mg/dL 7-21 (BEAKER) (test iuba=096) CREATININE (BEAKER) (test 1.78 mg/dL 0.57-1.25 vtbo=739) GLUCOSE RANDOM (BEAKER) 79 mg/dL 70-105 (test pdvo=226) CALCIUM (BEAKER) (test 9.4 mg/dL 8.4-10.2 nabc=213) EGFR (BEAKER) (test 34 mL/min/1.73 sq m ESTIMATED GFR IS NOT zhdn=9979) ACCURATE CREATININE CLEARANCE IN PREDICTING GLOMERULAR FILTRATION RATE. ESTIMATED GFR IS NOT APPLICABLE FOR DIALYSIS PATIENTS. [id number] 21:18:00 Test Item Value Reference Range Comments PARTIAL THROMBOPLASTIN TIME (BEAKER) (test 36.1 seconds 22.5-36.0 ngyf=055) PROTHROMBIN TIME/[id number] 21:17:00 Test Item Value Reference Range Comments PROTIME (BEAKER) (test hgjo=024) 15.1 seconds 11.7-14.7 INR (BEAKER) (test enzj=951) 1.2 <=5.9 RECOMMENDED COUMADIN/WARFARIN INR THERAPY RANGESSTANDARD DOSE: 2.0 - 3.0 Includes: PROPHYLAXIS forvenous thrombosis, systemic embolization; TREATMENT for venous thrombosis and/or pulmonary embolus.HIGH RISK: Target INR is 2.5-3.5 for patients with mechanical heart valves.CBC W/PLT COUNT & AUTO [id number] 21:05:00 Test Item Value Reference Range Comments WHITE BLOOD CELL COUNT (BEAKER) (test roab=102) 5.3 K/ L 3.5-10.5 RED BLOOD CELL COUNT (BEAKER) (test tqdv=611) 3.43 M/ L 3.93-5.22 HEMOGLOBIN (BEAKER) (test qgwu=841) 10.6 GM/DL 11.2-15.7 HEMATOCRIT (BEAKER) (test duvn=157) 36.3 % 34.1-44.9 MEAN CORPUSCULAR VOLUME (BEAKER) (test zmwg=763) 105.8 fL 79.4-94.8 MEAN CORPUSCULAR HEMOGLOBIN (BEAKER) (test 30.9 pg 25.6-32.2 vrrd=903) MEAN CORPUSCULAR HEMOGLOBIN CONC (BEAKER) (test 29.2 GM/DL 32.2-35.5 koxo=068) RED CELL DISTRIBUTION WIDTH (BEAKER) (test 17.9 % 11.7-14.4 uvef=914) PLATELET COUNT (BEAKER) (test djkx=335) 294 K/CU MM 150-450 MEAN PLATELET VOLUME (BEAKER) (test grdd=033) 9.4 fL 9.4-12.3 NUCLEATED RED BLOOD CELLS (BEAKER) (test 0 /100 WBC 0-0 uxdb=637) NEUTROPHILS RELATIVE PERCENT (BEAKER) (test 75 % qcwq=319) LYMPHOCYTES RELATIVE PERCENT (BEAKER) (test 12 % whhm=264) MONOCYTES RELATIVE PERCENT (BEAKER) (test 8 % rcvz=781) EOSINOPHILS RELATIVE PERCENT (BEAKER) (test 4 % adpn=423) BASOPHILS RELATIVE PERCENT (BEAKER) (test 1 % nvyf=053) NEUTROPHILS ABSOLUTE COUNT (BEAKER) (test 3.97 K/ L 1.56-6.13 iswy=513) LYMPHOCYTES ABSOLUTE COUNT (BEAKER) (test 0.64 K/ L 1.18-3.74 dfdk=838) MONOCYTES ABSOLUTE COUNT (BEAKER) (test 0.42 K/ L 0.24-0.36 kxsa=204) EOSINOPHILS ABSOLUTE COUNT (BEAKER) (test 0.19 K/ L 0.04-0.36 gnxz=629) BASOPHILS ABSOLUTE COUNT (BEAKER) (test 0.05 K/ L 0.01-0.08 fwkb=864) IMMATURE GRANULOCYTES-RELATIVE PERCENT (BEAKER) 0 % 0-1 (test vvtt=7167) B-TYPE NATRIURETIC FACTOR (BNP)2017-08-18 15:08:00 Test Item Value Reference Range Comments B-TYPE NATRIURETIC PEPTIDE (BEAKER) (test 867 pg/mL 0-100 etgd=687) BASIC METABOLIC [id number] 15:05:00 Test Item Value Reference Range Comments SODIUM (BEAKER) (test 140 meq/L 136-145 mcib=401) POTASSIUM (BEAKER) (test 4.6 meq/L 3.5-5.1 sdzf=715) CHLORIDE (BEAKER) (test 98 meq/L 98-107 izkx=095) CO2 (BEAKER) (test 32 meq/L 22-29 fagt=935) BLOOD UREA NITROGEN 30 mg/dL 7-21 (BEAKER) (test jnlk=618) CREATININE (BEAKER) (test 2.58 mg/dL 0.57-1.25 elxe=977) GLUCOSE RANDOM (BEAKER) 105 mg/dL 70-105 (test sovc=804) CALCIUM (BEAKER) (test 10.3 mg/dL 8.4-10.2 xawq=682) EGFR (BEAKER) (test 22 mL/min/1.73 sq m ESTIMATED GFR IS NOT wvtn=6202) ACCURATE CREATININE CLEARANCE IN PREDICTING GLOMERULAR FILTRATION RATE. ESTIMATED GFR IS NOT APPLICABLE FOR DIALYSIS PATIENTS. [id number] 15:02:00 Test Item Value Reference Range Comments MAGNESIUM (BEAKER) (test ukst=091) 2.0 mg/dL 1.6-2.6 POCT-GLUCOSE [id number] 12:40:00 Test Item Value Reference Range Comments POC-GLUCOSE METER (BEAKER) 225 mg/dL 70-110 TESTED AT [address] (test uwlj=2945) [facility] [address] POCT-GLUCOSE [id number] 08:32:00 Test Item Value Reference Range Comments POC-GLUCOSE METER (BEAKER) 148 mg/dL 70-110 TESTED AT [address] (test gbtb=8595) [place] [id number] BASIC METABOLIC [id number] 05:56:00 Test Item Value Reference Range Comments SODIUM (BEAKER) (test 138 meq/L 136-145 etxc=107) POTASSIUM (BEAKER) (test 4.0 meq/L 3.5-5.1 mztc=614) CHLORIDE (BEAKER) (test 98 meq/L 98-107 dnvy=315) CO2 (BEAKER) (test 29 meq/L 22-29 efpj=675) BLOOD UREA NITROGEN 14 mg/dL 7-21 (BEAKER) (test uwzu=721) CREATININE (BEAKER) (test 1.85 mg/dL 0.57-1.25 kdee=053) GLUCOSE RANDOM (BEAKER) 116 mg/dL 70-105 (test mgut=531) CALCIUM (BEAKER) (test 9.9 mg/dL 8.4-10.2 ucml=815) EGFR (BEAKER) (test 33 mL/min/1.73 sq m ESTIMATED GFR IS NOT cxxf=0109) ACCURATE CREATININE CLEARANCE IN PREDICTING GLOMERULAR FILTRATION RATE. ESTIMATED GFR IS NOT APPLICABLE FOR DIALYSIS PATIENTS. POCT-GLUCOSE [id number] 21:38:00 Test Item Value Reference Range Comments POC-GLUCOSE METER (BEAKER) 162 mg/dL 70-110 TESTED AT [address] (test yarb=3458) [facility] [address] POCT-GLUCOSE [id number] 17:02:00 Test Item Value Reference Range Comments POC-GLUCOSE METER (BEAKER) 160 mg/dL 70-110 TESTED AT [address] (test hrzi=1194) [facility] [address] POCT-GLUCOSE [id number] 12:33:00 Test Item Value Reference Range Comments POC-GLUCOSE METER (BEAKER) 163 mg/dL 70-110 TESTED AT [address] (test wbod=2795) [place] [id number] POCT-GLUCOSE [id number] 10:33:00 Test Item Value Reference Range Comments POC-GLUCOSE METER (BEAKER) 175 mg/dL 70-110 TESTED AT [address] (test yxun=1081) [place] [address] [id number] 04:51:00 Test Item Value Reference Range Comments MAGNESIUM (BEAKER) (test 2.0 mg/dL 1.6-2.6 Specimen slightly hemolyzed npds=263) BASIC METABOLIC [id number] 04:51:00 Test Item Value Reference Range Comments SODIUM (BEAKER) (test 139 meq/L 136-145 idgb=031) POTASSIUM (BEAKER) (test 3.8 meq/L 3.5-5.1 Specimen slightly keqp=190) hemolyzed CHLORIDE (BEAKER) (test 99 meq/L 98-107 hdfy=413) CO2 (BEAKER) (test 27 meq/L 22-29 xeuv=649) BLOOD UREA NITROGEN 14 mg/dL 7-21 (BEAKER) (test jsid=571) CREATININE (BEAKER) (test 1.61 mg/dL 0.57-1.25 Specimen slightly egdu=009) hemolyzed GLUCOSE RANDOM (BEAKER) 139 mg/dL 70-105 (test gtnk=868) CALCIUM (BEAKER) (test 10.0 mg/dL 8.4-10.2 gkob=322) EGFR (BEAKER) (test 38 mL/min/1.73 sq m ESTIMATED GFR IS NOT bple=2422) ACCURATE CREATININE CLEARANCE IN PREDICTING GLOMERULAR FILTRATION RATE. ESTIMATED GFR IS NOT APPLICABLE FOR DIALYSIS PATIENTS. POCT-GLUCOSE [id number] 21:32:00 Test Item Value Reference Range Comments POC-GLUCOSE METER (BEAKER) 176 mg/dL 70-110 TESTED AT [address] (test trpc=0451) [place] [id number] POCT-GLUCOSE [id number] 17:22:00 Test Item Value Reference Range Comments POC-GLUCOSE METER (BEAKER) 232 mg/dL 70-110 TESTED AT [address] (test qqrm=7902) [facility] [address] POCT-GLUCOSE [id number] 12:47:00 Test Item Value Reference Range Comments POC-GLUCOSE METER (BEAKER) 162 mg/dL 70-110 TESTED AT [address] (test hojg=7064) [place] [id number] POCT-GLUCOSE [id number] 08:15:00 Test Item Value Reference Range Comments POC-GLUCOSE METER (BEAKER) 149 mg/dL 70-110 TESTED AT [address] (test upan=0625) [place] [address] [id number] 07:05:00 Test Item Value Reference Range Comments MAGNESIUM (BEAKER) (test dfmv=678) 1.9 mg/dL 1.6-2.6 BASIC METABOLIC [id number] 07:05:00 Test Item Value Reference Range Comments SODIUM (BEAKER) (test 136 meq/L 136-145 nlnk=853) POTASSIUM (BEAKER) (test 3.8 meq/L 3.5-5.1 obbw=986) CHLORIDE (BEAKER) (test 98 meq/L 98-107 qqap=324) CO2 (BEAKER) (test 30 meq/L 22-29 uuib=763) BLOOD UREA NITROGEN 14 mg/dL 7-21 (BEAKER) (test vgtp=719) CREATININE (BEAKER) (test 1.56 mg/dL 0.57-1.25 dgzy=508) GLUCOSE RANDOM (BEAKER) 129 mg/dL 70-105 (test ityv=138) CALCIUM (BEAKER) (test 9.8 mg/dL 8.4-10.2 sgac=253) EGFR (BEAKER) (test 40 mL/min/1.73 sq m ESTIMATED GFR IS NOT cwua=1689) ACCURATE CREATININE CLEARANCE IN PREDICTING GLOMERULAR FILTRATION RATE. ESTIMATED GFR IS NOT APPLICABLE FOR DIALYSIS PATIENTS. POCT-GLUCOSE [id number] 20:56:00 Test Item Value Reference Range Comments POC-GLUCOSE METER (BEAKER) 112 mg/dL 70-110 TESTED AT [address] (test fudu=1819) [place] [id number] POCT-GLUCOSE [id number] 17:48:00 Test Item Value Reference Range Comments POC-GLUCOSE METER (BEAKER) 213 mg/dL 70-110 TESTED AT [address] (test ehkf=4151) [place] [id number] POCT-GLUCOSE [id number] 11:40:00 Test Item Value Reference Range Comments POC-GLUCOSE METER (BEAKER) 208 mg/dL 70-110 TESTED AT [address] (test hbkt=7803) [place] [id number] POCT-GLUCOSE [id number] 07:43:00 Test Item Value Reference Range Comments POC-GLUCOSE METER (BEAKER) 144 mg/dL 70-110 TESTED AT [address] (test yibd=2892) [place] [address] [id number] 04:52:00 Test Item Value Reference Range Comments MAGNESIUM (BEAKER) (test 2.0 mg/dL 1.6-2.6 Specimen slightly hemolyzed kvad=115) BASIC METABOLIC [id number] 04:52:00 Test Item Value Reference Range Comments SODIUM (BEAKER) (test 133 meq/L 136-145 zmvd=750) POTASSIUM (BEAKER) (test 4.7 meq/L 3.5-5.1 Specimen slightly ivjy=451) hemolyzed CHLORIDE (BEAKER) (test 97 meq/L 98-107 ckxb=946) CO2 (BEAKER) (test 25 meq/L 22-29 wyoq=494) BLOOD UREA NITROGEN 17 mg/dL 7-21 (BEAKER) (test pgre=235) CREATININE (BEAKER) (test 1.63 mg/dL 0.57-1.25 Specimen slightly ixuc=738) hemolyzed GLUCOSE RANDOM (BEAKER) 141 mg/dL 70-105 (test wmzz=239) CALCIUM (BEAKER) (test 9.8 mg/dL 8.4-10.2 fxta=247) EGFR (BEAKER) (test 38 mL/min/1.73 sq m ESTIMATED GFR IS NOT jsfb=9153) ACCURATE CREATININE CLEARANCE IN PREDICTING GLOMERULAR FILTRATION RATE. ESTIMATED GFR IS NOT APPLICABLE FOR DIALYSIS PATIENTS. POCT-GLUCOSE [id number] 21:29:00 Test Item Value Reference Range Comments POC-GLUCOSE METER (BEAKER) 198 mg/dL 70-110 TESTED AT [address] (test sgbw=9177) [place] [id number] POCT-GLUCOSE [id number] 17:54:00 Test Item Value Reference Range Comments POC-GLUCOSE METER (BEAKER) 176 mg/dL 70-110 TESTED AT [facility] [address] [facility] (test nzml=8568) [facility] [address] POCT-GLUCOSE [id number] 07:05:00 Test Item Value Reference Range Comments POC-GLUCOSE METER (BEAKER) 137 mg/dL 70-110 TESTED AT [facility] [address] [facility] (test okgy=0096) [facility] [address] [id number] 06:53:00 Test Item Value Reference Range Comments MAGNESIUM (BEAKER) (test xacy=384) 2.0 mg/dL 1.6-2.6 BASIC METABOLIC [id number] 05:37:00 Test Item Value Reference Range Comments SODIUM (BEAKER) (test 136 meq/L 136-145 amki=391) POTASSIUM (BEAKER) (test 3.7 meq/L 3.5-5.1 tmwr=602) CHLORIDE (BEAKER) (test 97 meq/L 98-107 qcdq=585) CO2 (BEAKER) (test 30 meq/L 22-29 ymrb=080) BLOOD UREA NITROGEN 17 mg/dL 7-21 (BEAKER) (test yqha=952) CREATININE (BEAKER) (test 1.60 mg/dL 0.57-1.25 npcl=041) GLUCOSE RANDOM (BEAKER) 116 mg/dL 70-105 (test ujpx=239) CALCIUM (BEAKER) (test 9.4 mg/dL 8.4-10.2 pqfr=034) EGFR (BEAKER) (test 39 mL/min/1.73 sq m ESTIMATED GFR IS NOT vvoa=1975) ACCURATE CREATININE CLEARANCE IN PREDICTING GLOMERULAR FILTRATION RATE. ESTIMATED GFR IS NOT APPLICABLE FOR DIALYSIS PATIENTS. CBC W/PLT COUNT & AUTO [id number] 05:02:00 Test Item Value Reference Range Comments WHITE BLOOD CELL COUNT (BEAKER) (test sfdy=656) 8.7 K/ L 3.5-10.5 RED BLOOD CELL COUNT (BEAKER) (test qfhc=788) 2.43 M/ L 3.93-5.22 HEMOGLOBIN (BEAKER) (test umhq=201) 7.5 GM/DL 11.2-15.7 HEMATOCRIT (BEAKER) (test yfpc=010) 24.1 % 34.1-44.9 MEAN CORPUSCULAR VOLUME (BEAKER) (test hikm=216) 99.2 fL 79.4-94.8 MEAN CORPUSCULAR HEMOGLOBIN (BEAKER) (test 30.9 pg 25.6-32.2 zqwv=762) MEAN CORPUSCULAR HEMOGLOBIN CONC (BEAKER) (test 31.1 GM/DL 32.2-35.5 cptc=107) RED CELL DISTRIBUTION WIDTH (BEAKER) (test 15.8 % 11.7-14.4 jeyr=364) PLATELET COUNT (BEAKER) (test lgtp=750) 586 K/CU MM 150-450 MEAN PLATELET VOLUME (BEAKER) (test tbzf=321) 9.5 fL 9.4-12.3 NUCLEATED RED BLOOD CELLS (BEAKER) (test 0 /100 WBC 0-0 iynn=459) NEUTROPHILS RELATIVE PERCENT (BEAKER) (test 74 % pkzc=084) LYMPHOCYTES RELATIVE PERCENT (BEAKER) (test 15 % qvsk=175) MONOCYTES RELATIVE PERCENT (BEAKER) (test 8 % pcdj=957) EOSINOPHILS RELATIVE PERCENT (BEAKER) (test 2 % tbom=156) BASOPHILS RELATIVE PERCENT (BEAKER) (test 1 % gwfl=117) NEUTROPHILS ABSOLUTE COUNT (BEAKER) (test 6.41 K/ L 1.56-6.13 nusw=131) LYMPHOCYTES ABSOLUTE COUNT (BEAKER) (test 1.32 K/ L 1.18-3.74 dwtr=301) MONOCYTES ABSOLUTE COUNT (BEAKER) (test 0.65 K/ L 0.24-0.36 lria=943) EOSINOPHILS ABSOLUTE COUNT (BEAKER) (test 0.20 K/ L 0.04-0.36 melr=792) BASOPHILS ABSOLUTE COUNT (BEAKER) (test 0.08 K/ L 0.01-0.08 wtqn=453) IMMATURE GRANULOCYTES-RELATIVE PERCENT (BEAKER) 0 % 0-1 (test chrt=1798) POCT-GLUCOSE [id number] 21:28:00 Test Item Value Reference Range Comments POC-GLUCOSE METER (BEAKER) 216 mg/dL 70-110 TESTED AT [facility] [address] (test tcug=4741) [facility] [address] POCT-GLUCOSE [id number] 18:25:00 Test Item Value Reference Range Comments POC-GLUCOSE METER (BEAKER) 182 mg/dL 70-110 TESTED AT [facility] [address] [facility] (test fuah=1916) [facility] [address] POCT-GLUCOSE [id number] 09:37:00 Test Item Value Reference Range Comments POC-GLUCOSE METER (BEAKER) 155 mg/dL 70-110 TESTED AT [facility] [address] [facility] (test bwkr=1964) [facility] [address] CALCIUM, [id number] 07:37:00 Test Item Value Reference Range Comments CALCIUM IONIZED (BEAKER) (test pcwb=369) 1.11 mmol/L 1.12-1.27 PH, BLOOD (BEAKER) (test xdxy=0286) 7.39 [id number] 07:10:00 Test Item Value Reference Range Comments FERRITIN (BEAKER) (test fypi=519) 445 ng/mL 5-275 IRON, TIBC, % SAT. (WITHOUT FERRITIN)2017-08-04 07:04:00 Test Item Value Reference Range Comments IRON (BEAKER) (test ppcd=712) 55 ug/dL 40-160 TOTAL IRON BINDING CAPACITY (BEAKER) (test 198 ug/dL 250-450 tysr=445) IRON % SATURATION (2) (BEAKER) (test jxdm=9429) 28 % 20-55 [id number] 06:57:00 Test Item Value Reference Range Comments PHOSPHORUS (BEAKER) (test owye=348) 4.3 mg/dL 2.3-4.7 [id number] 06:57:00 Test Item Value Reference Range Comments MAGNESIUM (BEAKER) (test zaaa=180) 2.1 mg/dL 1.6-2.6 BASIC METABOLIC [id number] 06:57:00 Test Item Value Reference Range Comments SODIUM (BEAKER) (test 138 meq/L 136-145 htfp=231) POTASSIUM (BEAKER) (test 3.8 meq/L 3.5-5.1 gmno=722) CHLORIDE (BEAKER) (test 99 meq/L 98-107 eyoa=996) CO2 (BEAKER) (test 29 meq/L 22-29 uurw=876) BLOOD UREA NITROGEN 18 mg/dL 7-21 (BEAKER) (test lwvb=242) CREATININE (BEAKER) (test 1.75 mg/dL 0.57-1.25 viid=446) GLUCOSE RANDOM (BEAKER) 138 mg/dL 70-105 (test uurz=551) CALCIUM (BEAKER) (test 9.7 mg/dL 8.4-10.2 cgjq=309) EGFR (BEAKER) (test 35 mL/min/1.73 sq m ESTIMATED GFR IS NOT ktxe=4906) ACCURATE CREATININE CLEARANCE IN PREDICTING GLOMERULAR FILTRATION RATE. ESTIMATED GFR IS NOT APPLICABLE FOR DIALYSIS PATIENTS. B-TYPE NATRIURETIC FACTOR (BNP)2017-08-04 06:54:00 Test Item Value Reference Range Comments B-TYPE NATRIURETIC PEPTIDE (BEAKER) (test 778 pg/mL 0-100 vuyg=787) RETICULOCYTE [id number] 06:39:00 Test Item Value Reference Range Comments RETICULOCYTE COUNT PCT (BEAKER) (test dfas=005) 8.3 % 0.5-1.7 CBC W/PLT COUNT & AUTO [id number] 06:39:00 Test Item Value Reference Range Comments WHITE BLOOD CELL COUNT (BEAKER) (test lbtk=390) 9.0 K/ L 3.5-10.5 RED BLOOD CELL COUNT (BEAKER) (test moxh=463) 2.55 M/ L 3.93-5.22 HEMOGLOBIN (BEAKER) (test hlul=063) 7.8 GM/DL 11.2-15.7 HEMATOCRIT (BEAKER) (test nvcr=351) 25.4 % 34.1-44.9 MEAN CORPUSCULAR VOLUME (BEAKER) (test wgrs=173) 99.6 fL 79.4-94.8 MEAN CORPUSCULAR HEMOGLOBIN (BEAKER) (test 30.6 pg 25.6-32.2 gypt=868) MEAN CORPUSCULAR HEMOGLOBIN CONC (BEAKER) (test 30.7 GM/DL 32.2-35.5 pftu=582) RED CELL DISTRIBUTION WIDTH (BEAKER) (test 15.9 % 11.7-14.4 bgoz=827) PLATELET COUNT (BEAKER) (test hsyw=412) 591 K/CU MM 150-450 MEAN PLATELET VOLUME (BEAKER) (test iorx=299) 9.5 fL 9.4-12.3 NUCLEATED RED BLOOD CELLS (BEAKER) (test 0 /100 WBC 0-0 smjb=059) NEUTROPHILS RELATIVE PERCENT (BEAKER) (test 77 % ehwo=220) LYMPHOCYTES RELATIVE PERCENT (BEAKER) (test 13 % jtdv=992) MONOCYTES RELATIVE PERCENT (BEAKER) (test 7 % npby=610) EOSINOPHILS RELATIVE PERCENT (BEAKER) (test 2 % rcpr=727) BASOPHILS RELATIVE PERCENT (BEAKER) (test 1 % kqxa=150) NEUTROPHILS ABSOLUTE COUNT (BEAKER) (test 6.97 K/ L 1.56-6.13 jsvi=769) LYMPHOCYTES ABSOLUTE COUNT (BEAKER) (test 1.13 K/ L 1.18-3.74 qfor=450) MONOCYTES ABSOLUTE COUNT (BEAKER) (test 0.65 K/ L 0.24-0.36 zevj=775) EOSINOPHILS ABSOLUTE COUNT (BEAKER) (test 0.18 K/ L 0.04-0.36 ovio=740) BASOPHILS ABSOLUTE COUNT (BEAKER) (test 0.07 K/ L 0.01-0.08 wjoe=471) IMMATURE GRANULOCYTES-RELATIVE PERCENT (BEAKER) 0 % 0-1 (test dxas=9001) POCT-GLUCOSE [id number] 20:56:00 Test Item Value Reference Range Comments POC-GLUCOSE METER (BEAKER) 167 mg/dL 70-110 TESTED AT [address] (test zwil=6357) [place] [address] POCT-GLUCOSE [id number] 16:36:00 Test Item Value Reference Range Comments POC-GLUCOSE METER (BEAKER) 200 mg/dL 70-110 TESTED AT [address] (test wxve=3027) [place] [address] POCT-GLUCOSE [id number] 12:59:00 Test Item Value Reference Range Comments POC-GLUCOSE METER (BEAKER) 202 mg/dL 70-110 TESTED AT [address] (test lulf=6251) [place] [address] POCT-GLUCOSE [id number] 07:37:00 Test Item Value Reference Range Comments POC-GLUCOSE METER (BEAKER) 154 mg/dL 70-110 TESTED AT [address] (test muzg=4840) [place] [address] CBC W/PLT COUNT & AUTO [id number] 06:49:00 Test Item Value Reference Range Comments WHITE BLOOD CELL COUNT (BEAKER) (test rlab=463) 9.8 K/ L 3.5-10.5 RED BLOOD CELL COUNT (BEAKER) (test umpu=077) 2.62 M/ L 3.93-5.22 HEMOGLOBIN (BEAKER) (test zgmh=613) 8.1 GM/DL 11.2-15.7 HEMATOCRIT (BEAKER) (test jboz=920) 25.9 % 34.1-44.9 MEAN CORPUSCULAR VOLUME (BEAKER) (test gpyp=222) 98.9 fL 79.4-94.8 MEAN CORPUSCULAR HEMOGLOBIN (BEAKER) (test 30.9 pg 25.6-32.2 qyux=429) MEAN CORPUSCULAR HEMOGLOBIN CONC (BEAKER) (test 31.3 GM/DL 32.2-35.5 mmer=737) RED CELL DISTRIBUTION WIDTH (BEAKER) (test 15.8 % 11.7-14.4 vbzo=067) PLATELET COUNT (BEAKER) (test rxvw=082) 667 K/CU MM 150-450 MEAN PLATELET VOLUME (BEAKER) (test oqvg=864) 9.4 fL 9.4-12.3 NUCLEATED RED BLOOD CELLS (BEAKER) (test 0 /100 WBC 0-0 dbbs=362) NEUTROPHILS RELATIVE PERCENT (BEAKER) (test 77 % rwcm=876) LYMPHOCYTES RELATIVE PERCENT (BEAKER) (test 13 % ivni=052) MONOCYTES RELATIVE PERCENT (BEAKER) (test 7 % tlae=547) EOSINOPHILS RELATIVE PERCENT (BEAKER) (test 2 % kibg=402) BASOPHILS RELATIVE PERCENT (BEAKER) (test 1 % toaq=076) NEUTROPHILS ABSOLUTE COUNT (BEAKER) (test 7.57 K/ L 1.56-6.13 nyym=768) LYMPHOCYTES ABSOLUTE COUNT (BEAKER) (test 1.23 K/ L 1.18-3.74 nzju=496) MONOCYTES ABSOLUTE COUNT (BEAKER) (test 0.69 K/ L 0.24-0.36 cbsh=462) EOSINOPHILS ABSOLUTE COUNT (BEAKER) (test 0.16 K/ L 0.04-0.36 zthn=205) BASOPHILS ABSOLUTE COUNT (BEAKER) (test 0.08 K/ L 0.01-0.08 ltub=577) IMMATURE GRANULOCYTES-RELATIVE PERCENT (BEAKER) 1 % 0-1 (test kdhw=6946) CALCIUM, [id number] 06:38:00 Test Item Value Reference Range Comments CALCIUM IONIZED (BEAKER) (test aubc=355) 1.07 mmol/L 1.12-1.27 PH, BLOOD (BEAKER) (test jyuu=5766) 7.42 [id number] 06:08:00 Test Item Value Reference Range Comments PHOSPHORUS (BEAKER) (test nnpd=989) 4.3 mg/dL 2.3-4.7 [id number] 06:08:00 Test Item Value Reference Range Comments MAGNESIUM (BEAKER) (test ezzz=197) 2.4 mg/dL 1.6-2.6 BASIC METABOLIC [id number] 06:08:00 Test Item Value Reference Range Comments SODIUM (BEAKER) (test 138 meq/L 136-145 qjym=701) POTASSIUM (BEAKER) (test 4.0 meq/L 3.5-5.1 zkfp=996) CHLORIDE (BEAKER) (test 99 meq/L 98-107 yhra=605) CO2 (BEAKER) (test 29 meq/L 22-29 skwf=923) BLOOD UREA NITROGEN 15 mg/dL 7-21 (BEAKER) (test tvsp=446) CREATININE (BEAKER) (test 1.64 mg/dL 0.57-1.25 ulyo=404) GLUCOSE RANDOM (BEAKER) 135 mg/dL 70-105 (test fatv=895) CALCIUM (BEAKER) (test 9.5 mg/dL 8.4-10.2 geyp=998) EGFR (BEAKER) (test 38 mL/min/1.73 sq m ESTIMATED GFR IS NOT fkom=1083) ACCURATE CREATININE CLEARANCE IN PREDICTING GLOMERULAR FILTRATION RATE. ESTIMATED GFR IS NOT APPLICABLE FOR DIALYSIS PATIENTS. POCT-GLUCOSE [id number] 21:13:00 Test Item Value Reference Range Comments POC-GLUCOSE METER (BEAKER) 145 mg/dL 70-110 TESTED AT [facility] [address] [place] [address] (test lgct=3483) [facility] [address] POCT-GLUCOSE [id number] 17:08:00 Test Item Value Reference Range Comments POC-GLUCOSE METER (BEAKER) 134 mg/dL 70-110 TESTED AT [place] [id number] [facility] (test puef=9878) [facility] [address] POCT-GLUCOSE [id number] 11:44:00 Test Item Value Reference Range Comments POC-GLUCOSE METER (BEAKER) 159 mg/dL 70-110 TESTED AT [facility] [address] [facility] (test jgar=4410) [facility] [address] POCT-GLUCOSE [id number] 08:07:00 Test Item Value Reference Range Comments POC-GLUCOSE METER (BEAKER) 152 mg/dL 70-110 TESTED AT [facility] [address] [facility] (test bxzf=0693) [facility] [address] CALCIUM, [id number] 05:26:00 Test Item Value Reference Range Comments CALCIUM IONIZED (BEAKER) (test bjty=895) 1.10 mmol/L 1.12-1.27 PH, BLOOD (BEAKER) (test nnws=2402) 7.42 [id number] 05:05:00 Test Item Value Reference Range Comments PHOSPHORUS (BEAKER) (test dgzh=773) 4.6 mg/dL 2.3-4.7 [id number] 05:05:00 Test Item Value Reference Range Comments MAGNESIUM (BEAKER) (test cssd=488) 1.6 mg/dL 1.6-2.6 COMPREHENSIVE METABOLIC [id number] 05:05:00 Test Item Value Reference Range Comments TOTAL PROTEIN (BEAKER) 6.9 gm/dL 6.0-8.3 (test hxrz=814) ALBUMIN (BEAKER) (test 3.2 g/dL 3.5-5.0 dzmx=5725) ALKALINE PHOSPHATASE 55 U/L 40-150 (BEAKER) (test bvty=140) BILIRUBIN TOTAL (BEAKER) 0.6 mg/dL 0.2-1.2 (test zbmq=290) SODIUM (BEAKER) (test 139 meq/L 136-145 gpdr=253) POTASSIUM (BEAKER) (test 3.9 meq/L 3.5-5.1 mrlg=748) CHLORIDE (BEAKER) (test 100 meq/L 98-107 lgaa=858) CO2 (BEAKER) (test 27 meq/L 22-29 uwrx=666) BLOOD UREA NITROGEN 15 mg/dL 7-21 (BEAKER) (test fmju=662) CREATININE (BEAKER) (test 1.55 mg/dL 0.57-1.25 wgcf=851) GLUCOSE RANDOM (BEAKER) 125 mg/dL 70-105 (test ofkz=195) CALCIUM (BEAKER) (test 9.2 mg/dL 8.4-10.2 iwry=865) AST (SGOT) (BEAKER) (test 16 U/L 5-34 ksai=701) ALT (SGPT) (BEAKER) (test 11 U/L 6-55 bihn=928) EGFR (BEAKER) (test 40 mL/min/1.73 sq m ESTIMATED GFR IS NOT tiiy=8052) ACCURATE CREATININE CLEARANCE IN PREDICTING GLOMERULAR FILTRATION RATE. ESTIMATED GFR IS NOT APPLICABLE FOR DIALYSIS PATIENTS. CBC W/PLT COUNT & AUTO [id number] 04:57:00 Test Item Value Reference Range Comments WHITE BLOOD CELL COUNT (BEAKER) (test oyzf=699) 10.8 K/ L 3.5-10.5 RED BLOOD CELL COUNT (BEAKER) (test msgx=937) 2.57 M/ L 3.93-5.22 HEMOGLOBIN (BEAKER) (test emgg=467) 7.9 GM/DL 11.2-15.7 HEMATOCRIT (BEAKER) (test djau=950) 25.2 % 34.1-44.9 MEAN CORPUSCULAR VOLUME (BEAKER) (test uigu=783) 98.1 fL 79.4-94.8 MEAN CORPUSCULAR HEMOGLOBIN (BEAKER) (test 30.7 pg 25.6-32.2 sqct=774) MEAN CORPUSCULAR HEMOGLOBIN CONC (BEAKER) (test 31.3 GM/DL 32.2-35.5 svda=054) RED CELL DISTRIBUTION WIDTH (BEAKER) (test 15.9 % 11.7-14.4 libu=002) PLATELET COUNT (BEAKER) (test vvfs=303) 623 K/CU MM 150-450 MEAN PLATELET VOLUME (BEAKER) (test vumj=116) 9.4 fL 9.4-12.3 NUCLEATED RED BLOOD CELLS (BEAKER) (test 0 /100 WBC 0-0 fhjo=599) NEUTROPHILS RELATIVE PERCENT (BEAKER) (test 79 % anpx=558) LYMPHOCYTES RELATIVE PERCENT (BEAKER) (test 12 % uolp=662) MONOCYTES RELATIVE PERCENT (BEAKER) (test 7 % uyly=480) EOSINOPHILS RELATIVE PERCENT (BEAKER) (test 2 % lfcr=819) BASOPHILS RELATIVE PERCENT (BEAKER) (test 1 % kudz=855) NEUTROPHILS ABSOLUTE COUNT (BEAKER) (test 8.49 K/ L 1.56-6.13 kagp=278) LYMPHOCYTES ABSOLUTE COUNT (BEAKER) (test 1.28 K/ L 1.18-3.74 wutx=476) MONOCYTES ABSOLUTE COUNT (BEAKER) (test 0.74 K/ L 0.24-0.36 kdkk=097) EOSINOPHILS ABSOLUTE COUNT (BEAKER) (test 0.18 K/ L 0.04-0.36 kyas=913) BASOPHILS ABSOLUTE COUNT (BEAKER) (test 0.05 K/ L 0.01-0.08 ofgg=628) IMMATURE GRANULOCYTES-RELATIVE PERCENT (BEAKER) 1 % 0-1 (test yaai=5007) POCT-GLUCOSE [id number] 01:29:00 Test Item Value Reference Range Comments POC-GLUCOSE METER (BEAKER) 182 mg/dL 70-110 TESTED AT [address] (test zgyd=4529) [place] [address] POCT-GLUCOSE [id number] 22:32:00 Test Item Value Reference Range Comments POC-GLUCOSE METER (BEAKER) 204 mg/dL 70-110 TESTED AT [address] (test kwyc=6188) [place] [id number] POCT-GLUCOSE [id number] 18:53:00 Test Item Value Reference Range Comments POC-GLUCOSE METER (BEAKER) 154 mg/dL 70-110 TESTED AT [address] (test jpst=9463) [place] [id number] POCT-GLUCOSE [id number] 15:50:00 Test Item Value Reference Range Comments POC-GLUCOSE METER (BEAKER) 172 mg/dL 70-110 TESTED AT [address] (test jpvz=3904) [place] [address] B-TYPE NATRIURETIC FACTOR (BNP)2017-08-01 15:41:00 Test Item Value Reference Range Comments B-TYPE NATRIURETIC PEPTIDE (BEAKER) (test 1253 pg/mL 0-100 cnpy=993) RAD, CHEST, 1 VIEW, NON [id number] 15:00:00Reason for exam:->SOBShould this be performed at the bedside?->YesFINAL REPORT Chest one view compared to July 28, 2017 Discussion: There is cardiac prominence. Lungs are grossly clear. No effusion or pneumothorax. There is either hiatal hernia or aortic tortuosity. IMPRESSIONS: No significant change. Signed: Tony Hsueport Verified Date/Time: 08/01/2017 15:00:05 Reading Location: [facility] B1 [id number] Consult Reading Room Electronicallysigned by: TONY HSU M.D. on 08/01/2017 03:00 PMPOCT-GLUCOSE [id number] 09:28:00 Test Item Value Reference Range Comments POC-GLUCOSE METER (BEAKER) 155 mg/dL 70-110 TESTED AT [facility] [address] [facility] (test qflb=3928) [facility] [address] BASIC METABOLIC [id number] 08:00:00 Test Item Value Reference Range Comments SODIUM (BEAKER) (test 138 meq/L 136-145 yzag=585) POTASSIUM (BEAKER) (test 3.8 meq/L 3.5-5.1 kewk=576) CHLORIDE (BEAKER) (test 100 meq/L 98-107 ymff=675) CO2 (BEAKER) (test 27 meq/L 22-29 pocs=441) BLOOD UREA NITROGEN 14 mg/dL 7-21 (BEAKER) (test qldb=359) CREATININE (BEAKER) (test 1.47 mg/dL 0.57-1.25 lcyh=145) GLUCOSE RANDOM (BEAKER) 150 mg/dL 70-105 (test nwwa=686) CALCIUM (BEAKER) (test 9.0 mg/dL 8.4-10.2 gbcf=191) EGFR (BEAKER) (test 43 mL/min/1.73 sq m ESTIMATED GFR IS NOT qkku=0752) ACCURATE CREATININE CLEARANCE IN PREDICTING GLOMERULAR FILTRATION RATE. ESTIMATED GFR IS NOT APPLICABLE FOR DIALYSIS PATIENTS. CBC W/PLT COUNT & AUTO [id number] 07:54:00 Test Item Value Reference Range Comments WHITE BLOOD CELL COUNT (BEAKER) (test nzos=279) 12.4 K/ L 3.5-10.5 RED BLOOD CELL COUNT (BEAKER) (test jans=144) 2.57 M/ L 3.93-5.22 HEMOGLOBIN (BEAKER) (test hdwu=036) 7.7 GM/DL 11.2-15.7 HEMATOCRIT (BEAKER) (test zyuo=260) 25.0 % 34.1-44.9 MEAN CORPUSCULAR VOLUME (BEAKER) (test ewpu=173) 97.3 fL 79.4-94.8 MEAN CORPUSCULAR HEMOGLOBIN (BEAKER) (test 30.0 pg 25.6-32.2 ioba=011) MEAN CORPUSCULAR HEMOGLOBIN CONC (BEAKER) (test 30.8 GM/DL 32.2-35.5 vflb=049) RED CELL DISTRIBUTION WIDTH (BEAKER) (test 15.8 % 11.7-14.4 utkk=590) PLATELET COUNT (BEAKER) (test gxxp=445) 582 K/CU MM 150-450 MEAN PLATELET VOLUME (BEAKER) (test ufxr=268) 9.5 fL 9.4-12.3 NUCLEATED RED BLOOD CELLS (BEAKER) (test 0 /100 WBC 0-0 frhc=936) NEUTROPHILS RELATIVE PERCENT (BEAKER) (test 82 % pfkn=501) LYMPHOCYTES RELATIVE PERCENT (BEAKER) (test 10 % rqih=557) MONOCYTES RELATIVE PERCENT (BEAKER) (test 6 % ppar=577) EOSINOPHILS RELATIVE PERCENT (BEAKER) (test 1 % pjbz=255) BASOPHILS RELATIVE PERCENT (BEAKER) (test 1 % birj=467) NEUTROPHILS ABSOLUTE COUNT (BEAKER) (test 10.08 K/ L 1.56-6.13 zguv=042) LYMPHOCYTES ABSOLUTE COUNT (BEAKER) (test 1.19 K/ L 1.18-3.74 cjbb=942) MONOCYTES ABSOLUTE COUNT (BEAKER) (test 0.74 K/ L 0.24-0.36 uoqh=917) EOSINOPHILS ABSOLUTE COUNT (BEAKER) (test 0.16 K/ L 0.04-0.36 srjb=968) BASOPHILS ABSOLUTE COUNT (BEAKER) (test 0.10 K/ L 0.01-0.08 pzni=765) IMMATURE GRANULOCYTES-RELATIVE PERCENT (BEAKER) 1 % 0-1 (test ucdq=8372) POCT-GLUCOSE [id number] 21:34:00 Test Item Value Reference Range Comments POC-GLUCOSE METER (BEAKER) 153 mg/dL 70-110 TESTED AT [facility] [address] (test ufdt=1046) [facility] [address] POCT-GLUCOSE [id number] 17:34:00 Test Item Value Reference Range Comments POC-GLUCOSE METER (BEAKER) 165 mg/dL 70-110 TESTED AT [address] (test idwi=6165) [facility] [address] POCT-GLUCOSE [id number] 14:33:00 Test Item Value Reference Range Comments POC-GLUCOSE METER (BEAKER) 208 mg/dL 70-110 TESTED AT [address] (test swyg=3929) [facility] [address] POCT-GLUCOSE [id number] 12:54:00 Test Item Value Reference Range Comments POC-GLUCOSE METER (BEAKER) 218 mg/dL 70-110 TESTED AT [address] (test qrbi=0152) [facility] [address] POCT-GLUCOSE [id number] 10:34:00 Test Item Value Reference Range Comments POC-GLUCOSE METER (BEAKER) 204 mg/dL 70-110 TESTED AT [address] (test bltq=6245) [facility] [address] POCT-GLUCOSE [id number] 08:41:00 Test Item Value Reference Range Comments POC-GLUCOSE METER (BEAKER) 201 mg/dL 70-110 TESTED AT [address] (test zhex=7397) [facility] [address] [id number] 05:54:00 Test Item Value Reference Range Comments MAGNESIUM (BEAKER) (test jrgv=027) 1.8 mg/dL 1.6-2.6 BASIC METABOLIC [id number] 05:54:00 Test Item Value Reference Range Comments SODIUM (BEAKER) (test 138 meq/L 136-145 tmqo=719) POTASSIUM (BEAKER) (test 3.6 meq/L 3.5-5.1 qhpa=673) CHLORIDE (BEAKER) (test 100 meq/L 98-107 yxqq=350) CO2 (BEAKER) (test 25 meq/L 22-29 pnfu=000) BLOOD UREA NITROGEN 14 mg/dL 7-21 (BEAKER) (test omsk=079) CREATININE (BEAKER) (test 1.42 mg/dL 0.57-1.25 zuaq=822) GLUCOSE RANDOM (BEAKER) 145 mg/dL 70-105 (test gmpr=083) CALCIUM (BEAKER) (test 9.4 mg/dL 8.4-10.2 dnjt=890) EGFR (BEAKER) (test 44 mL/min/1.73 sq m ESTIMATED GFR IS NOT jibh=1744) ACCURATE CREATININE CLEARANCE IN PREDICTING GLOMERULAR FILTRATION RATE. ESTIMATED GFR IS NOT APPLICABLE FOR DIALYSIS PATIENTS. CBC (HEMOGRAM ONLY)2017-07-31 05:42:00 Test Item Value Reference Range Comments WHITE BLOOD CELL COUNT (BEAKER) (test ehqk=765) 13.3 K/ L 3.5-10.5 RED BLOOD CELL COUNT (BEAKER) (test ijpm=231) 2.65 M/ L 3.93-5.22 HEMOGLOBIN (BEAKER) (test huds=516) 7.9 GM/DL 11.2-15.7 HEMATOCRIT (BEAKER) (test snhr=401) 25.9 % 34.1-44.9 MEAN CORPUSCULAR VOLUME (BEAKER) (test aacx=375) 97.7 fL 79.4-94.8 MEAN CORPUSCULAR HEMOGLOBIN (BEAKER) (test 29.8 pg 25.6-32.2 cqzq=515) MEAN CORPUSCULAR HEMOGLOBIN CONC (BEAKER) (test 30.5 GM/DL 32.2-35.5 zdbq=586) RED CELL DISTRIBUTION WIDTH (BEAKER) (test 15.3 % 11.7-14.4 ihvm=118) PLATELET COUNT (BEAKER) (test wqop=647) 580 K/CU MM 150-450 MEAN PLATELET VOLUME (BEAKER) (test srug=580) 9.7 fL 9.4-12.3 NUCLEATED RED BLOOD CELLS (BEAKER) (test 0 /100 WBC 0-0 odev=840) POCT-GLUCOSE [id number] 21:21:00 Test Item Value Reference Range Comments POC-GLUCOSE METER (BEAKER) 206 mg/dL 70-110 TESTED AT [address] (test jacx=8691) [facility] [address] POCT-GLUCOSE [id number] 17:50:00 Test Item Value Reference Range Comments POC-GLUCOSE METER (BEAKER) 160 mg/dL 70-110 TESTED AT [address] (test yyxn=3718) [facility] [address] POCT-GLUCOSE [id number] 12:12:00 Test Item Value Reference Range Comments POC-GLUCOSE METER (BEAKER) 214 mg/dL 70-110 TESTED AT [address] (test kalh=4089) [place] [address] POCT-GLUCOSE [id number] 07:59:00 Test Item Value Reference Range Comments POC-GLUCOSE METER (BEAKER) 146 mg/dL 70-110 TESTED AT [facility] [address] [facility] (test cljf=9708) [facility] [address] CALCIUM, [id number] 07:23:00 Test Item Value Reference Range Comments CALCIUM IONIZED (BEAKER) (test nnli=649) 1.11 mmol/L 1.12-1.27 PH, BLOOD (BEAKER) (test weyo=4203) 7.42 [id number] 07:07:00 Test Item Value Reference Range Comments PHOSPHORUS (BEAKER) (test fusp=533) 3.5 mg/dL 2.3-4.7 [id number] 07:07:00 Test Item Value Reference Range Comments MAGNESIUM (BEAKER) (test umal=356) 1.8 mg/dL 1.6-2.6 COMPREHENSIVE METABOLIC [id number] 07:07:00 Test Item Value Reference Range Comments TOTAL PROTEIN (BEAKER) 6.7 gm/dL 6.0-8.3 (test nabw=736) ALBUMIN (BEAKER) (test 3.1 g/dL 3.5-5.0 fvxr=1583) ALKALINE PHOSPHATASE 53 U/L 40-150 (BEAKER) (test durz=379) BILIRUBIN TOTAL (BEAKER) 0.6 mg/dL 0.2-1.2 (test scsk=981) SODIUM (BEAKER) (test 139 meq/L 136-145 xtpz=639) POTASSIUM (BEAKER) (test 4.0 meq/L 3.5-5.1 ggqh=050) CHLORIDE (BEAKER) (test 103 meq/L 98-107 xuov=861) CO2 (BEAKER) (test 27 meq/L 22-29 ielv=819) BLOOD UREA NITROGEN 16 mg/dL 7-21 (BEAKER) (test jgcp=153) CREATININE (BEAKER) (test 1.34 mg/dL 0.57-1.25 qyxv=323) GLUCOSE RANDOM (BEAKER) 116 mg/dL 70-105 (test snji=811) CALCIUM (BEAKER) (test 9.2 mg/dL 8.4-10.2 kwct=498) AST (SGOT) (BEAKER) (test 15 U/L 5-34 ktrh=390) ALT (SGPT) (BEAKER) (test 11 U/L 6-55 kbzi=581) EGFR (BEAKER) (test 47 mL/min/1.73 sq m ESTIMATED GFR IS NOT qswr=5505) ACCURATE CREATININE CLEARANCE IN PREDICTING GLOMERULAR FILTRATION RATE. ESTIMATED GFR IS NOT APPLICABLE FOR DIALYSIS PATIENTS. CBC W/PLT COUNT & AUTO [id number] 06:52:00 Test Item Value Reference Range Comments WHITE BLOOD CELL COUNT (BEAKER) (test auyu=106) 12.8 K/ L 3.5-10.5 RED BLOOD CELL COUNT (BEAKER) (test wgxx=371) 2.43 M/ L 3.93-5.22 HEMOGLOBIN (BEAKER) (test nyly=410) 7.2 GM/DL 11.2-15.7 HEMATOCRIT (BEAKER) (test xbcm=855) 23.8 % 34.1-44.9 MEAN CORPUSCULAR VOLUME (BEAKER) (test oojq=886) 97.9 fL 79.4-94.8 MEAN CORPUSCULAR HEMOGLOBIN (BEAKER) (test 29.6 pg 25.6-32.2 ccrk=201) MEAN CORPUSCULAR HEMOGLOBIN CONC (BEAKER) (test 30.3 GM/DL 32.2-35.5 nvgg=007) RED CELL DISTRIBUTION WIDTH (BEAKER) (test 15.0 % 11.7-14.4 rxfb=760) PLATELET COUNT (BEAKER) (test uzdj=095) 456 K/CU MM 150-450 MEAN PLATELET VOLUME (BEAKER) (test ewma=403) 10.3 fL 9.4-12.3 NUCLEATED RED BLOOD CELLS (BEAKER) (test 0 /100 WBC 0-0 ksxp=905) NEUTROPHILS RELATIVE PERCENT (BEAKER) (test 82 % amaf=124) LYMPHOCYTES RELATIVE PERCENT (BEAKER) (test 9 % ttei=742) MONOCYTES RELATIVE PERCENT (BEAKER) (test 6 % muwt=565) EOSINOPHILS RELATIVE PERCENT (BEAKER) (test 2 % pxph=632) BASOPHILS RELATIVE PERCENT (BEAKER) (test 0 % lgdo=610) NEUTROPHILS ABSOLUTE COUNT (BEAKER) (test 10.52 K/ L 1.56-6.13 whxa=523) LYMPHOCYTES ABSOLUTE COUNT (BEAKER) (test 1.19 K/ L 1.18-3.74 nsmd=644) MONOCYTES ABSOLUTE COUNT (BEAKER) (test 0.73 K/ L 0.24-0.36 tztd=381) EOSINOPHILS ABSOLUTE COUNT (BEAKER) (test 0.22 K/ L 0.04-0.36 beew=164) BASOPHILS ABSOLUTE COUNT (BEAKER) (test 0.04 K/ L 0.01-0.08 nuna=497) IMMATURE GRANULOCYTES-RELATIVE PERCENT (BEAKER) 1 % 0-1 (test kykz=0196) POCT-GLUCOSE [id number] 21:47:00 Test Item Value Reference Range Comments POC-GLUCOSE METER (BEAKER) 106 mg/dL 70-110 TESTED AT [address] (test gfeq=5305) [place] [address] POCT-GLUCOSE [id number] 18:50:00 Test Item Value Reference Range Comments POC-GLUCOSE METER (BEAKER) 175 mg/dL 70-110 TESTED AT [address] (test uqbl=0093) [place] [address] [id number] 15:18:00 Test Item Value Reference Range Comments POTASSIUM (BEAKER) (test ddms=768) 3.7 meq/L 3.5-5.1 [id number] 15:18:00 Test Item Value Reference Range Comments MAGNESIUM (BEAKER) (test orze=446) 2.2 mg/dL 1.6-2.6 POCT-GLUCOSE [id number] 11:48:00 Test Item Value Reference Range Comments POC-GLUCOSE METER (BEAKER) 131 mg/dL 70-110 TESTED AT [address] (test rstq=3352) [place] [address] BLOOD GAS, [id number] 11:46:00 Test Item Value Reference Range Comments PH ARTERIAL (BEAKER) (test fdpk=662) 7.43 7.35-7.45 PCO2 ARTERIAL (BEAKER) (test bjgf=099) 46 mmHg 35-45 PO2 ARTERIAL (BEAKER) (test ynbl=513) 83 mmHg 80-90 O2 SATURATION ARTERIAL (BEAKER) (test lcgg=768) 96.5 % 96.0-97.0 HCO3 ARTERIAL (BEAKER) (test unom=394) 30 mmol/L 21-29 BASE EXCESS ARTERIAL (BEAKER) (test rzfe=146) 4.8 mmol/L -2.0-3.0 PATIENT TEMPERATURE (BEAKER) (test zfzw=6290) 36.9 C FIO2 (BEAKER) (test licg=6845) 36.0 % POCT-GLUCOSE [id number] 08:29:00 Test Item Value Reference Range Comments POC-GLUCOSE METER (BEAKER) 129 mg/dL 70-110 TESTED AT [facility] [address] [facility] (test atva=8990) [place] [address] CALCIUM, [id number] 04:18:00 Test Item Value Reference Range Comments CALCIUM IONIZED (BEAKER) (test tskz=384) 1.11 mmol/L 1.12-1.27 PH, BLOOD (BEAKER) (test ssmn=8404) 7.40 B-TYPE NATRIURETIC FACTOR (BNP)2017-07-29 04:06:00 Test Item Value Reference Range Comments B-TYPE NATRIURETIC PEPTIDE (BEAKER) (test 982 pg/mL 0-100 lwsw=770) [id number] 03:59:00 Test Item Value Reference Range Comments PHOSPHORUS (BEAKER) (test lhak=560) 3.6 mg/dL 2.3-4.7 [id number] 03:59:00 Test Item Value Reference Range Comments MAGNESIUM (BEAKER) (test blkb=366) 1.9 mg/dL 1.6-2.6 BASIC METABOLIC [id number] 03:59:00 Test Item Value Reference Range Comments SODIUM (BEAKER) (test 141 meq/L 136-145 cpiq=857) POTASSIUM (BEAKER) (test 3.1 meq/L 3.5-5.1 lbae=196) CHLORIDE (BEAKER) (test 103 meq/L 98-107 mdbn=889) CO2 (BEAKER) (test 26 meq/L 22-29 cojd=222) BLOOD UREA NITROGEN 17 mg/dL 7-21 (BEAKER) (test gmbo=572) CREATININE (BEAKER) (test 1.43 mg/dL 0.57-1.25 xaip=466) GLUCOSE RANDOM (BEAKER) 110 mg/dL 70-105 (test txdw=969) CALCIUM (BEAKER) (test 9.0 mg/dL 8.4-10.2 mgid=281) EGFR (BEAKER) (test 44 mL/min/1.73 sq m ESTIMATED GFR IS NOT dgep=1654) ACCURATE CREATININE CLEARANCE IN PREDICTING GLOMERULAR FILTRATION RATE. ESTIMATED GFR IS NOT APPLICABLE FOR DIALYSIS PATIENTS. CBC (HEMOGRAM ONLY)2017-07-29 03:51:00 Test Item Value Reference Range Comments WHITE BLOOD CELL COUNT (BEAKER) (test mxrr=039) 12.2 K/ L 3.5-10.5 RED BLOOD CELL COUNT (BEAKER) (test scdo=245) 2.48 M/ L 3.93-5.22 HEMOGLOBIN (BEAKER) (test wcds=611) 7.4 GM/DL 11.2-15.7 HEMATOCRIT (BEAKER) (test adkc=503) 24.2 % 34.1-44.9 MEAN CORPUSCULAR VOLUME (BEAKER) (test zabx=479) 97.6 fL 79.4-94.8 MEAN CORPUSCULAR HEMOGLOBIN (BEAKER) (test 29.8 pg 25.6-32.2 voky=257) MEAN CORPUSCULAR HEMOGLOBIN CONC (BEAKER) (test 30.6 GM/DL 32.2-35.5 ytsl=977) RED CELL DISTRIBUTION WIDTH (BEAKER) (test 15.1 % 11.7-14.4 aime=039) PLATELET COUNT (BEAKER) (test zsfl=183) 410 K/CU MM 150-450 MEAN PLATELET VOLUME (BEAKER) (test vzrd=974) 10.2 fL 9.4-12.3 NUCLEATED RED BLOOD CELLS (BEAKER) (test 0 /100 WBC 0-0 mphl=340) POCT-GLUCOSE [id number] 23:55:00 Test Item Value Reference Range Comments POC-GLUCOSE METER (BEAKER) 164 mg/dL 70-110 TESTED AT [facility] [address] [facility] (test cvxq=2881) [facility] [address] HERPES VIRUS ANTIBODY, [id number] 11:02:00 Test Item Value Reference Range Comments HERPES VIRUS IGM (BEAKER) (test gqgh=7277) Negative HSV IgM 1=NEGATIVEHSV IgM 2=NEGATIVETOXOPLASMA GONDII ANTIBODY, [id number] 11 :02:00 Test Item Value Reference Range Comments TOXOPLASMA IGM ANTIBODY (BEAKER) (test cxra=193) Negative RAD, CHEST, 1 VIEW, NON [id number] 10:48:00Reason for exam:->acute respiratory insufficiencyShould this be [...] MDReport Verified Date/Time: 07/28/2017 10:48:24 Reading Location: [facility] Radiology Reading Room [id number] 05:13:00 Test Item Value Reference Range Comments PHOSPHORUS (BEAKER) (test hxdw=612) 3.3 mg/dL 2.3-4.7 [id number] 05:13:00 Test Item Value Reference Range Comments MAGNESIUM (BEAKER) (test ubnw=709) 1.9 mg/dL 1.6-2.6 HEPATIC FUNCTION [id number] 05:13:00 Test Item Value Reference Range Comments TOTAL PROTEIN (BEAKER) (test srmx=837) 7.5 gm/dL 6.0-8.3 ALBUMIN (BEAKER) (test hsoz=9967) 3.6 g/dL 3.5-5.0 BILIRUBIN TOTAL (BEAKER) (test gyht=858) 0.9 mg/dL 0.2-1.2 BILIRUBIN DIRECT (BEAKER) (test chgo=623) 0.4 mg/dL 0.1-0.5 ALKALINE PHOSPHATASE (BEAKER) (test bfzv=497) 66 U/L 40-150 AST (SGOT) (BEAKER) (test xydd=304) 21 U/L 5-34 ALT (SGPT) (BEAKER) (test moeo=126) 17 U/L 6-55 COMPREHENSIVE METABOLIC [id number] 05:13:00 Test Item Value Reference Range Comments TOTAL PROTEIN (BEAKER) 7.5 gm/dL 6.0-8.3 (test jvmg=705) ALBUMIN (BEAKER) (test 3.6 g/dL 3.5-5.0 kmep=5656) ALKALINE PHOSPHATASE 66 U/L 40-150 (BEAKER) (test qlcq=606) BILIRUBIN TOTAL (BEAKER) 0.9 mg/dL 0.2-1.2 (test bhyy=844) SODIUM (BEAKER) (test 143 meq/L 136-145 pzgb=546) POTASSIUM (BEAKER) (test 3.5 meq/L 3.5-5.1 uojz=035) CHLORIDE (BEAKER) (test 105 meq/L 98-107 prnw=147) CO2 (BEAKER) (test 25 meq/L 22-29 kfjn=513) BLOOD UREA NITROGEN 18 mg/dL 7-21 (BEAKER) (test vnek=347) CREATININE (BEAKER) (test 1.43 mg/dL 0.57-1.25 mnmv=766) GLUCOSE RANDOM (BEAKER) 130 mg/dL 70-105 (test usra=156) CALCIUM (BEAKER) (test 9.6 mg/dL 8.4-10.2 tqwc=592) AST (SGOT) (BEAKER) (test 21 U/L 5-34 jpar=635) ALT (SGPT) (BEAKER) (test 17 U/L 6-55 rikg=747) EGFR (BEAKER) (test 44 mL/min/1.73 sq m ESTIMATED GFR IS NOT iwxh=5921) ACCURATE CREATININE CLEARANCE IN PREDICTING GLOMERULAR FILTRATION RATE. ESTIMATED GFR IS NOT APPLICABLE FOR DIALYSIS PATIENTS. LACTATE DEHYDROGENASE (LDH)2017-07-28 05:13:00 Test Item Value Reference Range Comments LACTATE DEHYDROGENASE (BEAKER) (test xjgz=691) 639 U/L 125-220 CBC W/PLT COUNT & AUTO [id number] 04:57:00 Test Item Value Reference Range Comments WHITE BLOOD CELL COUNT (BEAKER) (test jukq=041) 13.6 K/ L 3.5-10.5 RED BLOOD CELL COUNT (BEAKER) (test gejp=270) 2.86 M/ L 3.93-5.22 HEMOGLOBIN (BEAKER) (test pidy=756) 8.5 GM/DL 11.2-15.7 HEMATOCRIT (BEAKER) (test tfyd=978) 28.9 % 34.1-44.9 MEAN CORPUSCULAR VOLUME (BEAKER) (test czyl=811) 101.0 fL 79.4-94.8 MEAN CORPUSCULAR HEMOGLOBIN (BEAKER) (test 29.7 pg 25.6-32.2 lxgg=894) MEAN CORPUSCULAR HEMOGLOBIN CONC (BEAKER) (test 29.4 GM/DL 32.2-35.5 moyi=349) RED CELL DISTRIBUTION WIDTH (BEAKER) (test 15.2 % 11.7-14.4 ttsp=872) PLATELET COUNT (BEAKER) (test vncx=597) 375 K/CU MM 150-450 MEAN PLATELET VOLUME (BEAKER) (test tbzp=928) 10.7 fL 9.4-12.3 NUCLEATED RED BLOOD CELLS (BEAKER) (test 0 /100 WBC 0-0 cucw=074) NEUTROPHILS RELATIVE PERCENT (BEAKER) (test 82 % cqtj=283) LYMPHOCYTES RELATIVE PERCENT (BEAKER) (test 9 % qtoz=863) MONOCYTES RELATIVE PERCENT (BEAKER) (test 6 % axls=977) EOSINOPHILS RELATIVE PERCENT (BEAKER) (test 2 % vhnm=331) BASOPHILS RELATIVE PERCENT (BEAKER) (test 1 % qkda=472) NEUTROPHILS ABSOLUTE COUNT (BEAKER) (test 11.11 K/ L 1.56-6.13 qsej=829) LYMPHOCYTES ABSOLUTE COUNT (BEAKER) (test 1.17 K/ L 1.18-3.74 mwmz=536) MONOCYTES ABSOLUTE COUNT (BEAKER) (test 0.83 K/ L 0.24-0.36 kood=132) EOSINOPHILS ABSOLUTE COUNT (BEAKER) (test 0.25 K/ L 0.04-0.36 ctaz=230) BASOPHILS ABSOLUTE COUNT (BEAKER) (test 0.07 K/ L 0.01-0.08 epbq=893) IMMATURE GRANULOCYTES-RELATIVE PERCENT (BEAKER) 1 % 0-1 (test tcfu=8900) OCCULT BLOOD, [id number] 01:02:00 Test Item Value Reference Range Comments FECAL OCCULT BLOOD (BEAKER) (test gbfd=586) Negative Negative POCT-GLUCOSE [id number] 00:46:00 Test Item Value Reference Range Comments POC-GLUCOSE METER (BEAKER) 149 mg/dL 70-110 TESTED AT [address] (test djxe=4724) [place] [id number] C. DIFFICILE GDH [id number] 19:51:00 Test Item Value Reference Range Comments CDT TOXIN (test Negative Negative duob=[id number]) CDT GDH ANTIGEN (test Negative Negative No indication of Clostridium uuvb=[id number]) difficile infection and no colonization. Discontinue enteric isolation and therapy. Testing performed by [employer] Rapid Cassette Assay. For GDH, published sensitivity of the assay is 98.7% compared to cytotoxicity testing. For Toxin AB, published sensitivity is 87.8% and specificity 99.4% compared to cytotoxicity testing.Verification of kit performance was done by the [facility] Microbiology Lab prior to clinical use.POCT-GLUCOSE [id number] 18:11:00 Test Item Value Reference Range Comments POC-GLUCOSE METER (BEAKER) 201 mg/dL 70-110 TESTED AT [address] (test yawc=4481) [place] [id number] BLOOD GAS, [id number] 17:03:00 Test Item Value Reference Range Comments PH ARTERIAL (BEAKER) (test wefu=378) 7.41 7.35-7.45 PCO2 ARTERIAL (BEAKER) (test gfcv=208) 45 mmHg 35-45 PO2 ARTERIAL (BEAKER) (test fhiu=737) 94 mmHg 80-90 O2 SATURATION ARTERIAL (BEAKER) (test oycs=548) 97.3 % 96.0-97.0 HCO3 ARTERIAL (BEAKER) (test gpgt=856) 28 mmol/L 21-29 BASE EXCESS ARTERIAL (BEAKER) (test honc=701) 2.3 mmol/L -2.0-3.0 PATIENT TEMPERATURE (BEAKER) (test szqc=1150) 36.6 C FIO2 (BEAKER) (test lqxq=8919) 40.0 % POCT-GLUCOSE [id number] 12:44:00 Test Item Value Reference Range Comments POC-GLUCOSE METER (BEAKER) 117 mg/dL 70-110 TESTED AT [address] (test sovz=2295) [place] [address] B-TYPE NATRIURETIC FACTOR (BNP)2017-07-27 11:13:00 Test Item Value Reference Range Comments B-TYPE NATRIURETIC PEPTIDE (BEAKER) (test 1198 pg/mL 0-100 kxux=222) LACTIC ACID, VENOUS, WHOLE [id number] 11:12:00 Test Item Value Reference Range Comments LACTATE BLOOD VENOUS (2) (BEAKER) (test 0.7 mmol/L 0.5-2.2 skco=1327) Effective 08/06/2015: Units/Reference Range ChangeNew: 0.5-2.2 mmol/L Previous: 5 -20 mg/dLOXYGEN SATURATION, [id number] 10:28:00 Test Item Value Reference Range Comments O2 SATURATION (MEASURED) (BEAKER) (test hrtx=9863) 59.6 % RAD, CHEST, 1 VIEW, NON [id number] 08:23:00Reason for exam:->acute respiratory insufficiencyShould this be [...] Verified Date/Time: 07/27/2017 08:23 :08 Reading Location: [facility] [address] Radiology Reading Room POCT-GLUCOSE [id number] 07:53:00 Test Item Value Reference Range Comments POC-GLUCOSE METER (BEAKER) 124 mg/dL 70-110 TESTED AT [address] (test noao=1871) [facility] [address] BASIC METABOLIC [id number] 06:33:00 Test Item Value Reference Range Comments SODIUM (BEAKER) (test 144 meq/L 136-145 fvbo=917) POTASSIUM (BEAKER) (test 3.8 meq/L 3.5-5.1 wyop=341) CHLORIDE (BEAKER) (test 109 meq/L 98-107 wssw=832) CO2 (BEAKER) (test 24 meq/L 22-29 gtbi=449) BLOOD UREA NITROGEN 20 mg/dL 7-21 (BEAKER) (test joql=046) CREATININE (BEAKER) (test 1.40 mg/dL 0.57-1.25 xojk=037) GLUCOSE RANDOM (BEAKER) 111 mg/dL 70-105 (test sgah=544) CALCIUM (BEAKER) (test 8.8 mg/dL 8.4-10.2 ateq=951) EGFR (BEAKER) (test 45 mL/min/1.73 sq m ESTIMATED GFR IS NOT lfwj=7454) ACCURATE CREATININE CLEARANCE IN PREDICTING GLOMERULAR FILTRATION RATE. ESTIMATED GFR IS NOT APPLICABLE FOR DIALYSIS PATIENTS. [id number] 06:24:00 Test Item Value Reference Range Comments PHOSPHORUS (BEAKER) (test nnlu=766) 3.3 mg/dL 2.3-4.7 BASIC METABOLIC [id number] 06:24:00 Test Item Value Reference Range Comments SODIUM (BEAKER) (test 145 meq/L 136-145 ninf=651) POTASSIUM (BEAKER) (test 3.8 meq/L 3.5-5.1 ogri=177) CHLORIDE (BEAKER) (test 110 meq/L 98-107 hzah=473) CO2 (BEAKER) (test 24 meq/L 22-29 amog=924) BLOOD UREA NITROGEN 21 mg/dL 7-21 (BEAKER) (test vxyb=139) CREATININE (BEAKER) (test 1.39 mg/dL 0.57-1.25 fyjc=010) GLUCOSE RANDOM (BEAKER) 112 mg/dL 70-105 (test agjt=150) CALCIUM (BEAKER) (test 8.9 mg/dL 8.4-10.2 uozv=640) EGFR (BEAKER) (test 45 mL/min/1.73 sq m ESTIMATED GFR IS NOT ogdl=6138) ACCURATE CREATININE CLEARANCE IN PREDICTING GLOMERULAR FILTRATION RATE. ESTIMATED GFR IS NOT APPLICABLE FOR DIALYSIS PATIENTS. [id number] 03:27:00 Test Item Value Reference Range Comments PROCALCITONIN (BEAKER) (test hahr=5271) 0.28 ng/mL <0.05 SEPSIS RISK (ng/mL)Low: 0.05-0.50Intermediate: 0.51-2.00High: & gt;=2.01LACTATE DEHYDROGENASE (LDH)2017-07-27 03:07:00 Test Item Value Reference Range Comments LACTATE DEHYDROGENASE (BEAKER) (test dqdh=214) 615 U/L 125-220 HEPATIC FUNCTION [id number] 03:07:00 Test Item Value Reference Range Comments TOTAL PROTEIN (BEAKER) (test rsdh=340) 6.8 gm/dL 6.0-8.3 ALBUMIN (BEAKER) (test gegi=2888) 3.2 g/dL 3.5-5.0 BILIRUBIN TOTAL (BEAKER) (test xgvi=270) 0.9 mg/dL 0.2-1.2 BILIRUBIN DIRECT (BEAKER) (test rhml=105) 0.5 mg/dL 0.1-0.5 ALKALINE PHOSPHATASE (BEAKER) (test cilp=185) 58 U/L 40-150 AST (SGOT) (BEAKER) (test sjid=393) 21 U/L 5-34 ALT (SGPT) (BEAKER) (test atfi=239) 15 U/L 6-55 CALCIUM, [id number] 02:57:00 Test Item Value Reference Range Comments CALCIUM IONIZED (BEAKER) (test ssdg=192) 1.14 mmol/L 1.12-1.27 PH, BLOOD (BEAKER) (test khpy=7160) 7.42 CBC W/PLT COUNT & AUTO [id number] 02:56:00 Test Item Value Reference Range Comments WHITE BLOOD CELL COUNT (BEAKER) (test edlf=557) 12.4 K/ L 3.5-10.5 RED BLOOD CELL COUNT (BEAKER) (test ecvq=720) 2.50 M/ L 3.93-5.22 HEMOGLOBIN (BEAKER) (test hfgs=465) 7.4 GM/DL 11.2-15.7 HEMATOCRIT (BEAKER) (test hxii=577) 24.7 % 34.1-44.9 MEAN CORPUSCULAR VOLUME (BEAKER) (test enag=626) 98.8 fL 79.4-94.8 MEAN CORPUSCULAR HEMOGLOBIN (BEAKER) (test 29.6 pg 25.6-32.2 hfok=482) MEAN CORPUSCULAR HEMOGLOBIN CONC (BEAKER) (test 30.0 GM/DL 32.2-35.5 evfi=855) RED CELL DISTRIBUTION WIDTH (BEAKER) (test 15.1 % 11.7-14.4 oetl=389) PLATELET COUNT (BEAKER) (test trne=562) 233 K/CU MM 150-450 MEAN PLATELET VOLUME (BEAKER) (test gfmj=529) 10.5 fL 9.4-12.3 NUCLEATED RED BLOOD CELLS (BEAKER) (test 0 /100 WBC 0-0 dnfz=180) NEUTROPHILS RELATIVE PERCENT (BEAKER) (test 80 % qzvh=572) LYMPHOCYTES RELATIVE PERCENT (BEAKER) (test 9 % asmp=477) MONOCYTES RELATIVE PERCENT (BEAKER) (test 7 % gich=106) EOSINOPHILS RELATIVE PERCENT (BEAKER) (test 2 % ruwl=060) BASOPHILS RELATIVE PERCENT (BEAKER) (test 0 % befb=249) NEUTROPHILS ABSOLUTE COUNT (BEAKER) (test 9.94 K/ L 1.56-6.13 hgic=278) LYMPHOCYTES ABSOLUTE COUNT (BEAKER) (test 1.15 K/ L 1.18-3.74 qdtx=367) MONOCYTES ABSOLUTE COUNT (BEAKER) (test 0.90 K/ L 0.24-0.36 fnlw=397) EOSINOPHILS ABSOLUTE COUNT (BEAKER) (test 0.24 K/ L 0.04-0.36 zvuw=532) BASOPHILS ABSOLUTE COUNT (BEAKER) (test 0.05 K/ L 0.01-0.08 fyfo=707) IMMATURE GRANULOCYTES-RELATIVE PERCENT (BEAKER) 1 % 0-1 (test txnr=0014) [id number] 01:29:00 Test Item Value Reference Range Comments PHOSPHORUS (BEAKER) (test uhkx=199) 3.5 mg/dL 2.3-4.7 BASIC METABOLIC [id number] 01:29:00 Test Item Value Reference Range Comments SODIUM (BEAKER) (test 145 meq/L 136-145 zome=751) POTASSIUM (BEAKER) (test 3.4 meq/L 3.5-5.1 vyel=647) CHLORIDE (BEAKER) (test 107 meq/L 98-107 erew=087) CO2 (BEAKER) (test 26 meq/L 22-29 mkpd=527) BLOOD UREA NITROGEN 21 mg/dL 7-21 (BEAKER) (test tkgo=911) CREATININE (BEAKER) (test 1.47 mg/dL 0.57-1.25 selq=496) GLUCOSE RANDOM (BEAKER) 138 mg/dL 70-105 (test hklv=949) CALCIUM (BEAKER) (test 9.1 mg/dL 8.4-10.2 kzua=959) EGFR (BEAKER) (test 43 mL/min/1.73 sq m ESTIMATED GFR IS NOT qrhn=6948) ACCURATE CREATININE CLEARANCE IN PREDICTING GLOMERULAR FILTRATION RATE. ESTIMATED GFR IS NOT APPLICABLE FOR DIALYSIS PATIENTS. POCT-GLUCOSE [id number] 22:08:00 Test Item Value Reference Range Comments POC-GLUCOSE METER (BEAKER) 166 mg/dL 70-110 TESTED AT [address] (test phnw=5264) [facility] [address] [id number] 21:22:00 Test Item Value Reference Range Comments MAGNESIUM (BEAKER) (test qsnh=483) 2.2 mg/dL 1.6-2.6 [id number] 19:23:00 Test Item Value Reference Range Comments PHOSPHORUS (BEAKER) (test mgpz=332) 2.9 mg/dL 2.3-4.7 BASIC METABOLIC [id number] 19:23:00 Test Item Value Reference Range Comments SODIUM (BEAKER) (test 145 meq/L 136-145 fhse=879) POTASSIUM (BEAKER) (test 3.6 meq/L 3.5-5.1 umsl=109) CHLORIDE (BEAKER) (test 109 meq/L 98-107 jmbq=612) CO2 (BEAKER) (test 24 meq/L 22-29 pwih=375) BLOOD UREA NITROGEN 22 mg/dL 7-21 (BEAKER) (test yhff=170) CREATININE (BEAKER) (test 1.48 mg/dL 0.57-1.25 agpk=228) GLUCOSE RANDOM (BEAKER) 150 mg/dL 70-105 (test jisa=614) CALCIUM (BEAKER) (test 9.0 mg/dL 8.4-10.2 ghnr=278) EGFR (BEAKER) (test 42 mL/min/1.73 sq m ESTIMATED GFR IS NOT onzh=3565) ACCURATE CREATININE CLEARANCE IN PREDICTING GLOMERULAR FILTRATION RATE. ESTIMATED GFR IS NOT APPLICABLE FOR DIALYSIS PATIENTS. POCT-GLUCOSE [id number] 18:13:00 Test Item Value Reference Range Comments POC-GLUCOSE METER (BEAKER) 188 mg/dL 70-110 TESTED AT [place] [id number] [facility] (test bfci=5065) [facility] [address] [id number] 13:12:00 Test Item Value Reference Range Comments PHOSPHORUS (BEAKER) (test pina=409) 2.7 mg/dL 2.3-4.7 BASIC METABOLIC [id number] 13:12:00 Test Item Value Reference Range Comments SODIUM (BEAKER) (test 144 meq/L 136-145 cujg=771) POTASSIUM (BEAKER) (test 3.5 meq/L 3.5-5.1 lnay=877) CHLORIDE (BEAKER) (test 108 meq/L 98-107 dpiw=369) CO2 (BEAKER) (test 26 meq/L 22-29 fonu=274) BLOOD UREA NITROGEN 23 mg/dL 7-21 (BEAKER) (test wgya=293) CREATININE (BEAKER) (test 1.45 mg/dL 0.57-1.25 miox=897) GLUCOSE RANDOM (BEAKER) 183 mg/dL 70-105 (test iylb=157) CALCIUM (BEAKER) (test 8.5 mg/dL 8.4-10.2 ihkl=144) EGFR (BEAKER) (test 43 mL/min/1.73 sq m ESTIMATED GFR IS NOT zilb=8313) ACCURATE CREATININE CLEARANCE IN PREDICTING GLOMERULAR FILTRATION RATE. ESTIMATED GFR IS NOT APPLICABLE FOR DIALYSIS PATIENTS. POCT-GLUCOSE [id number] 12:07:00 Test Item Value Reference Range Comments POC-GLUCOSE METER (BEAKER) 203 mg/dL 70-110 TESTED AT [facility] [address] [facility] (test sgja=6531) [facility] [address] [id number] 09:50:00 Test Item Value Reference Range Comments MAGNESIUM (BEAKER) (test kape=544) 2.6 mg/dL 1.6-2.6 RAD, CHEST, 1 VIEW, NON [id number] 08:06:00Reason for exam:->acute respiratory insufficiencyShould this be [...] Location: [facility] POCT-GLUCOSE [id number] 07:58:00 Test Item Value Reference Range Comments POC-GLUCOSE METER (BEAKER) 176 mg/dL 70-110 TESTED AT [facility] [address] [facility] (test gskc=7818) [facility] [address] OXYGEN SATURATION, [id number] 05:23:00 Test Item Value Reference Range Comments O2 SATURATION (MEASURED) (BEAKER) (test btye=2017) 64.5 % calibrationBLOOD GAS, [id number] 04:43:00 Test Item Value Reference Range Comments PH ARTERIAL (BEAKER) (test slim=693) 7.44 7.35-7.45 PCO2 ARTERIAL (BEAKER) (test qhks=106) 44 mmHg 35-45 PO2 ARTERIAL (BEAKER) (test xkos=478) 127 mmHg 80-90 O2 SATURATION ARTERIAL (BEAKER) (test lnjb=998) 98.6 % 96.0-97.0 HCO3 ARTERIAL (BEAKER) (test taqj=788) 29 mmol/L 21-29 BASE EXCESS ARTERIAL (BEAKER) (test cchz=005) 4.6 mmol/L -2.0-3.0 PATIENT TEMPERATURE (BEAKER) (test yxlg=1402) 37.3 C FIO2 (BEAKER) (test cpwf=7439) 100.0 % [id number] 04:31:00 Test Item Value Reference Range Comments PHOSPHORUS (BEAKER) (test lkru=698) 3.4 mg/dL 2.3-4.7 [id number] 04:31:00 Test Item Value Reference Range Comments MAGNESIUM (BEAKER) (test ligu=574) 2.2 mg/dL 1.6-2.6 BASIC METABOLIC [id number] 04:31:00 Test Item Value Reference Range Comments SODIUM (BEAKER) (test 146 meq/L 136-145 umof=633) POTASSIUM (BEAKER) (test 3.7 meq/L 3.5-5.1 uefa=132) CHLORIDE (BEAKER) (test 108 meq/L 98-107 bgjd=968) CO2 (BEAKER) (test 28 meq/L 22-29 nacl=949) BLOOD UREA NITROGEN 23 mg/dL 7-21 (BEAKER) (test eyfl=568) CREATININE (BEAKER) (test 1.51 mg/dL 0.57-1.25 esob=883) GLUCOSE RANDOM (BEAKER) 151 mg/dL 70-105 (test gxmy=232) CALCIUM (BEAKER) (test 9.4 mg/dL 8.4-10.2 pucp=929) EGFR (BEAKER) (test 41 mL/min/1.73 sq m ESTIMATED GFR IS NOT srcq=7214) ACCURATE CREATININE CLEARANCE IN PREDICTING GLOMERULAR FILTRATION RATE. ESTIMATED GFR IS NOT APPLICABLE FOR DIALYSIS PATIENTS. HEPATIC FUNCTION [id number] 04:31:00 Test Item Value Reference Range Comments TOTAL PROTEIN (BEAKER) (test tjsq=074) 6.6 gm/dL 6.0-8.3 ALBUMIN (BEAKER) (test euev=2675) 3.2 g/dL 3.5-5.0 BILIRUBIN TOTAL (BEAKER) (test kwhy=334) 1.0 mg/dL 0.2-1.2 BILIRUBIN DIRECT (BEAKER) (test dmbm=360) 0.5 mg/dL 0.1-0.5 ALKALINE PHOSPHATASE (BEAKER) (test scyg=601) 60 U/L 40-150 AST (SGOT) (BEAKER) (test nktd=036) 25 U/L 5-34 ALT (SGPT) (BEAKER) (test ljnl=454) 18 U/L 6-55 COMPREHENSIVE METABOLIC [id number] 04:31:00 Test Item Value Reference Range Comments TOTAL PROTEIN (BEAKER) 6.6 gm/dL 6.0-8.3 (test xpxs=004) ALBUMIN (BEAKER) (test 3.2 g/dL 3.5-5.0 gezw=8739) ALKALINE PHOSPHATASE 60 U/L 40-150 (BEAKER) (test ipyk=968) BILIRUBIN TOTAL (BEAKER) 1.0 mg/dL 0.2-1.2 (test ynqh=468) SODIUM (BEAKER) (test 146 meq/L 136-145 ebgn=079) POTASSIUM (BEAKER) (test 3.7 meq/L 3.5-5.1 fiww=528) CHLORIDE (BEAKER) (test 108 meq/L 98-107 nlbg=470) CO2 (BEAKER) (test 28 meq/L 22-29 dpmx=750) BLOOD UREA NITROGEN 23 mg/dL 7-21 (BEAKER) (test kuqw=636) CREATININE (BEAKER) (test 1.51 mg/dL 0.57-1.25 wtlh=883) GLUCOSE RANDOM (BEAKER) 151 mg/dL 70-105 (test tfkm=386) CALCIUM (BEAKER) (test 9.4 mg/dL 8.4-10.2 ohzz=967) AST (SGOT) (BEAKER) (test 25 U/L 5-34 ivrf=587) ALT (SGPT) (BEAKER) (test 18 U/L 6-55 ilhj=857) EGFR (BEAKER) (test 41 mL/min/1.73 sq m ESTIMATED GFR IS NOT ogka=6103) ACCURATE CREATININE CLEARANCE IN PREDICTING GLOMERULAR FILTRATION RATE. ESTIMATED GFR IS NOT APPLICABLE FOR DIALYSIS PATIENTS. LACTATE DEHYDROGENASE (LDH)2017-07-26 04:31:00 Test Item Value Reference Range Comments LACTATE DEHYDROGENASE (BEAKER) (test oqvm=086) 661 U/L 125-220 CALCIUM, [id number] 04:23:00 Test Item Value Reference Range Comments CALCIUM IONIZED (BEAKER) (test wrez=380) 1.15 mmol/L 1.12-1.27 PH, BLOOD (BEAKER) (test rjfj=1708) 7.47 CBC W/PLT COUNT & AUTO [id number] 04:20:00 Test Item Value Reference Range Comments WHITE BLOOD CELL COUNT (BEAKER) (test cira=411) 13.0 K/ L 3.5-10.5 RED BLOOD CELL COUNT (BEAKER) (test umjq=491) 2.56 M/ L 3.93-5.22 HEMOGLOBIN (BEAKER) (test hslq=280) 7.6 GM/DL 11.2-15.7 HEMATOCRIT (BEAKER) (test ngjj=683) 25.4 % 34.1-44.9 MEAN CORPUSCULAR VOLUME (BEAKER) (test vkpq=580) 99.2 fL 79.4-94.8 MEAN CORPUSCULAR HEMOGLOBIN (BEAKER) (test 29.7 pg 25.6-32.2 wage=228) MEAN CORPUSCULAR HEMOGLOBIN CONC (BEAKER) (test 29.9 GM/DL 32.2-35.5 sfra=310) RED CELL DISTRIBUTION WIDTH (BEAKER) (test 15.0 % 11.7-14.4 apax=947) PLATELET COUNT (BEAKER) (test bxxu=200) 161 K/CU MM 150-450 MEAN PLATELET VOLUME (BEAKER) (test lvxh=680) 11.0 fL 9.4-12.3 NUCLEATED RED BLOOD CELLS (BEAKER) (test 0 /100 WBC 0-0 vwff=948) NEUTROPHILS RELATIVE PERCENT (BEAKER) (test 79 % vhtl=784) LYMPHOCYTES RELATIVE PERCENT (BEAKER) (test 10 % tcgx=650) MONOCYTES RELATIVE PERCENT (BEAKER) (test 7 % nvfx=195) EOSINOPHILS RELATIVE PERCENT (BEAKER) (test 2 % gymf=474) BASOPHILS RELATIVE PERCENT (BEAKER) (test 1 % bfgh=985) NEUTROPHILS ABSOLUTE COUNT (BEAKER) (test 10.33 K/ L 1.56-6.13 zgwa=265) LYMPHOCYTES ABSOLUTE COUNT (BEAKER) (test 1.35 K/ L 1.18-3.74 lxwi=251) MONOCYTES ABSOLUTE COUNT (BEAKER) (test 0.96 K/ L 0.24-0.36 oawg=747) EOSINOPHILS ABSOLUTE COUNT (BEAKER) (test 0.19 K/ L 0.04-0.36 oxsx=150) BASOPHILS ABSOLUTE COUNT (BEAKER) (test 0.07 K/ L 0.01-0.08 tzsw=264) IMMATURE GRANULOCYTES-RELATIVE PERCENT (BEAKER) 1 % 0-1 (test vygu=8452) [id number] 21:19:00 Test Item Value Reference Range Comments PHOSPHORUS (BEAKER) (test thss=327) 4.4 mg/dL 2.3-4.7 [id number] 21:19:00 Test Item Value Reference Range Comments MAGNESIUM (BEAKER) (test fkkm=260) 2.1 mg/dL 1.6-2.6 BASIC METABOLIC [id number] 21:19:00 Test Item Value Reference Range Comments SODIUM (BEAKER) (test 146 meq/L 136-145 zbgf=703) POTASSIUM (BEAKER) (test 3.9 meq/L 3.5-5.1 ryyf=685) CHLORIDE (BEAKER) (test 108 meq/L 98-107 mlxu=724) CO2 (BEAKER) (test 27 meq/L 22-29 xmvj=688) BLOOD UREA NITROGEN 24 mg/dL 7-21 (BEAKER) (test vtal=752) CREATININE (BEAKER) (test 1.64 mg/dL 0.57-1.25 lcvv=723) GLUCOSE RANDOM (BEAKER) 120 mg/dL 70-105 (test abse=457) CALCIUM (BEAKER) (test 9.5 mg/dL 8.4-10.2 uusu=742) EGFR (BEAKER) (test 38 mL/min/1.73 sq m ESTIMATED GFR IS NOT noox=7256) ACCURATE CREATININE CLEARANCE IN PREDICTING GLOMERULAR FILTRATION RATE. ESTIMATED GFR IS NOT APPLICABLE FOR DIALYSIS PATIENTS. POCT-GLUCOSE [id number] 18:36:00 Test Item Value Reference Range Comments POC-GLUCOSE METER (BEAKER) 129 mg/dL 70-110 TESTED AT [address] (test fkzw=2857) [place] [address] POCT-GLUCOSE [id number] 16:19:00 Test Item Value Reference Range Comments POC-GLUCOSE METER (BEAKER) 132 mg/dL 70-110 TESTED AT [address] (test frsu=3990) [place] [address] [id number] 13:57:00 Test Item Value Reference Range Comments PHOSPHORUS (BEAKER) (test jwao=301) 4.2 mg/dL 2.3-4.7 BASIC METABOLIC [id number] 13:57:00 Test Item Value Reference Range Comments SODIUM (BEAKER) (test 147 meq/L 136-145 tmxf=705) POTASSIUM (BEAKER) (test 3.7 meq/L 3.5-5.1 wxpl=100) CHLORIDE (BEAKER) (test 110 meq/L 98-107 dype=763) CO2 (BEAKER) (test 25 meq/L 22-29 gish=391) BLOOD UREA NITROGEN 23 mg/dL 7-21 (BEAKER) (test wmqu=766) CREATININE (BEAKER) (test 1.58 mg/dL 0.57-1.25 izpk=656) GLUCOSE RANDOM (BEAKER) 129 mg/dL 70-105 (test rhmj=592) CALCIUM (BEAKER) (test 9.2 mg/dL 8.4-10.2 pzxp=498) EGFR (BEAKER) (test 39 mL/min/1.73 sq m ESTIMATED GFR IS NOT luln=4656) ACCURATE CREATININE CLEARANCE IN PREDICTING GLOMERULAR FILTRATION RATE. ESTIMATED GFR IS NOT APPLICABLE FOR DIALYSIS PATIENTS. BLOOD GAS, [id number] 13:48:00 Test Item Value Reference Range Comments PH ARTERIAL (BEAKER) (test wjwi=131) 7.42 7.35-7.45 PCO2 ARTERIAL (BEAKER) (test zjrv=426) 47 mmHg 35-45 PO2 ARTERIAL (BEAKER) (test shsb=370) 202 mmHg 80-90 O2 SATURATION ARTERIAL (BEAKER) (test jdin=164) 99.4 % 96.0-97.0 HCO3 ARTERIAL (BEAKER) (test uquj=077) 29 mmol/L 21-29 BASE EXCESS ARTERIAL (BEAKER) (test mnre=142) 4.4 mmol/L -2.0-3.0 PATIENT TEMPERATURE (BEAKER) (test qqcp=3892) 37.6 C FIO2 (BEAKER) (test gklm=0077) 100.0 % POCT-GLUCOSE [id number] 13:31:00 Test Item Value Reference Range Comments POC-GLUCOSE METER (BEAKER) 128 mg/dL 70-110 TESTED AT [address] (test reer=9872) [place] [address] POCT-GLUCOSE [id number] 11:02:00 Test Item Value Reference Range Comments POC-GLUCOSE METER (BEAKER) 137 mg/dL 70-110 TESTED AT [address] (test npse=4216) [place] [id number] POCT-GLUCOSE [id number] 11:02:00 Test Item Value Reference Range Comments POC-GLUCOSE METER (BEAKER) 141 mg/dL 70-110 TESTED AT [address] (test nzdc=3766) [place] [id number] POCT-GLUCOSE [id number] 11:02:00 Test Item Value Reference Range Comments POC-GLUCOSE METER (BEAKER) 104 mg/dL 70-110 TESTED AT [address] (test ciep=1592) [place] [id number] BLOOD [id number] 11:00:00 Test Item Value Reference Range Comments CULTURE (BEAKER) (test folx=7965) No growth in 5 days BLOOD [id number] 11:00:00 Test Item Value Reference Range Comments CULTURE (BEAKER) (test clfk=8172) No growth in 5 days CBC W/PLT COUNT & AUTO [id number] 08:54:00 Test Item Value Reference Range Comments WHITE BLOOD CELL COUNT (BEAKER) (test chvu=634) 13.8 K/ L 3.5-10.5 RED BLOOD CELL COUNT (BEAKER) (test frrf=058) 2.54 M/ L 3.93-5.22 HEMOGLOBIN (BEAKER) (test vlxu=209) 7.7 GM/DL 11.2-15.7 HEMATOCRIT (BEAKER) (test wtyt=078) 25.2 % 34.1-44.9 MEAN CORPUSCULAR VOLUME (BEAKER) (test euts=534) 99.2 fL 79.4-94.8 MEAN CORPUSCULAR HEMOGLOBIN (BEAKER) (test 30.3 pg 25.6-32.2 qncq=285) MEAN CORPUSCULAR HEMOGLOBIN CONC (BEAKER) (test 30.6 GM/DL 32.2-35.5 igiu=023) RED CELL DISTRIBUTION WIDTH (BEAKER) (test 15.2 % 11.7-14.4 txlq=488) PLATELET COUNT (BEAKER) (test vnic=165) 127 K/CU MM 150-450 MEAN PLATELET VOLUME (BEAKER) (test azag=116) 10.6 fL 9.4-12.3 NUCLEATED RED BLOOD CELLS (BEAKER) (test 0 /100 WBC 0-0 gkbf=800) NEUTROPHILS RELATIVE PERCENT (BEAKER) (test 81 % yfok=656) LYMPHOCYTES RELATIVE PERCENT (BEAKER) (test 8 % ffyc=150) MONOCYTES RELATIVE PERCENT (BEAKER) (test 9 % nlsp=003) EOSINOPHILS RELATIVE PERCENT (BEAKER) (test 1 % negy=107) BASOPHILS RELATIVE PERCENT (BEAKER) (test 0 % ytfg=090) NEUTROPHILS ABSOLUTE COUNT (BEAKER) (test 11.11 K/ L 1.56-6.13 hscn=502) LYMPHOCYTES ABSOLUTE COUNT (BEAKER) (test 1.14 K/ L 1.18-3.74 whch=386) MONOCYTES ABSOLUTE COUNT (BEAKER) (test 1.20 K/ L 0.24-0.36 xadt=319) EOSINOPHILS ABSOLUTE COUNT (BEAKER) (test 0.15 K/ L 0.04-0.36 zeik=043) BASOPHILS ABSOLUTE COUNT (BEAKER) (test 0.04 K/ L 0.01-0.08 mhzt=523) IMMATURE GRANULOCYTES-RELATIVE PERCENT (BEAKER) 1 % 0-1 (test dhgo=2261) BLOOD GAS, [id number] 08:40:00 Test Item Value Reference Range Comments PH ARTERIAL (BEAKER) (test afqp=925) 7.43 7.35-7.45 PCO2 ARTERIAL (BEAKER) (test vwjg=637) 35 mmHg 35-45 PO2 ARTERIAL (BEAKER) (test ibhu=263) 82 mmHg 80-90 O2 SATURATION ARTERIAL (BEAKER) (test zlzz=920) 95.7 % 96.0-97.0 HCO3 ARTERIAL (BEAKER) (test aeoq=094) 22 mmol/L 21-29 BASE EXCESS ARTERIAL (BEAKER) (test wkee=182) -1.3 mmol/L -2.0-3.0 PATIENT TEMPERATURE (BEAKER) (test lien=4939) 38.3 C FIO2 (BEAKER) (test vbii=7585) 40.0 % [id number] 06:59:00 Test Item Value Reference Range Comments PHOSPHORUS (BEAKER) (test gilb=615) 3.4 mg/dL 2.3-4.7 [id number] 06:59:00 Test Item Value Reference Range Comments MAGNESIUM (BEAKER) (test xzuw=549) 2.0 mg/dL 1.6-2.6 BASIC METABOLIC [id number] 06:59:00 Test Item Value Reference Range Comments SODIUM (BEAKER) (test 147 meq/L 136-145 ytgz=848) POTASSIUM (BEAKER) (test 3.7 meq/L 3.5-5.1 vfdf=729) CHLORIDE (BEAKER) (test 111 meq/L 98-107 dqzv=269) CO2 (BEAKER) (test 23 meq/L 22-29 anls=475) BLOOD UREA NITROGEN 24 mg/dL 7-21 (BEAKER) (test hvio=533) CREATININE (BEAKER) (test 1.57 mg/dL 0.57-1.25 hkin=194) GLUCOSE RANDOM (BEAKER) 121 mg/dL 70-105 (test mmrf=377) CALCIUM (BEAKER) (test 9.0 mg/dL 8.4-10.2 bjsk=154) EGFR (BEAKER) (test 39 mL/min/1.73 sq m ESTIMATED GFR IS NOT ntvp=7806) ACCURATE CREATININE CLEARANCE IN PREDICTING GLOMERULAR FILTRATION RATE. ESTIMATED GFR IS NOT APPLICABLE FOR DIALYSIS PATIENTS. POCT-GLUCOSE [id number] 06:27:00 Test Item Value Reference Range Comments POC-GLUCOSE METER (BEAKER) 95 mg/dL 70-110 TESTED AT [facility] [address] [facility] (test tuaj=4741) [facility] [address] POCT-GLUCOSE [id number] 06:04:00 Test Item Value Reference Range Comments POC-GLUCOSE METER (BEAKER) 128 mg/dL 70-110 TESTED AT [address] (test pidw=5742) [place] [address] [id number] 05:36:00 Test Item Value Reference Range Comments PHOSPHORUS (BEAKER) (test mfnc=277) 3.4 mg/dL 2.3-4.7 BASIC METABOLIC [id number] 05:36:00 Test Item Value Reference Range Comments SODIUM (BEAKER) (test 146 meq/L 136-145 sjme=570) POTASSIUM (BEAKER) (test 3.6 meq/L 3.5-5.1 nfqf=545) CHLORIDE (BEAKER) (test 110 meq/L 98-107 xepc=584) CO2 (BEAKER) (test 25 meq/L 22-29 hdfa=216) BLOOD UREA NITROGEN 25 mg/dL 7-21 (BEAKER) (test ejqy=452) CREATININE (BEAKER) (test 1.58 mg/dL 0.57-1.25 rzyb=158) GLUCOSE RANDOM (BEAKER) 114 mg/dL 70-105 (test wkuc=683) CALCIUM (BEAKER) (test 8.9 mg/dL 8.4-10.2 wwgw=633) EGFR (BEAKER) (test 39 mL/min/1.73 sq m ESTIMATED GFR IS NOT myeg=2055) ACCURATE CREATININE CLEARANCE IN PREDICTING GLOMERULAR FILTRATION RATE. ESTIMATED GFR IS NOT APPLICABLE FOR DIALYSIS PATIENTS. HEPATIC FUNCTION [id number] 05:36:00 Test Item Value Reference Range Comments TOTAL PROTEIN (BEAKER) (test rldh=718) 6.3 gm/dL 6.0-8.3 ALBUMIN (BEAKER) (test dcdy=5325) 3.1 g/dL 3.5-5.0 BILIRUBIN TOTAL (BEAKER) (test illc=181) 1.1 mg/dL 0.2-1.2 BILIRUBIN DIRECT (BEAKER) (test ihnt=583) 0.7 mg/dL 0.1-0.5 ALKALINE PHOSPHATASE (BEAKER) (test cdjw=862) 54 U/L 40-150 AST (SGOT) (BEAKER) (test sfgs=405) 23 U/L 5-34 ALT (SGPT) (BEAKER) (test pfrc=207) 17 U/L 6-55 LACTATE DEHYDROGENASE (LDH)2017-07-25 05:36:00 Test Item Value Reference Range Comments LACTATE DEHYDROGENASE (BEAKER) (test nuvm=359) 695 U/L 125-220 POCT-GLUCOSE [id number] 05:24:00 Test Item Value Reference Range Comments POC-GLUCOSE METER (BEAKER) 102 mg/dL 70-110 TESTED AT [facility] [address] [facility] (test ztod=0145) [facility] [address] RAD, CHEST, 1 VIEW, NON [id number] 04:43:00Reason for exam:-> impellaShould this be performed at the bedside?->YesFINAL REPORT Chest one view. Clinical history: impella Comparison: Chest radiograph 07/24/17 Technique: A single frontal view of the chest was obtained. Findings: Cardiomediastinal contours are unchanged. Endotracheal and feeding tubes as well as a right IJ [place] catheter are unchanged in position. There are patchy bibasilar opacities which may represent atelectasis and/or pneumonia. There is mild elevation of the left hemidiaphragm. There is no definite pleural effusionor pneumothorax. Signed: Alexia Ramirez Verified Date/Time: 07/25/2017 04:43:27 ReadingLocation: [facility] B1 C013T Transitional Reading Room [id number] 00:51:00 Test Item Value Reference Range Comments PHOSPHORUS (BEAKER) (test ajqa=489) 3.4 mg/dL 2.3-4.7 BASIC METABOLIC [id number] 00:51:00 Test Item Value Reference Range Comments SODIUM (BEAKER) (test 146 meq/L 136-145 ruoi=874) POTASSIUM (BEAKER) (test 4.0 meq/L 3.5-5.1 iezj=891) CHLORIDE (BEAKER) (test 110 meq/L 98-107 ygol=870) CO2 (BEAKER) (test 26 meq/L 22-29 eqdc=831) BLOOD UREA NITROGEN 26 mg/dL 7-21 (BEAKER) (test wzhs=803) CREATININE (BEAKER) (test 1.53 mg/dL 0.57-1.25 doiw=218) GLUCOSE RANDOM (BEAKER) 105 mg/dL 70-105 (test nsiz=621) CALCIUM (BEAKER) (test 8.8 mg/dL 8.4-10.2 kxas=488) EGFR (BEAKER) (test 41 mL/min/1.73 sq m ESTIMATED GFR IS NOT xcqi=9182) ACCURATE CREATININE CLEARANCE IN PREDICTING GLOMERULAR FILTRATION RATE. ESTIMATED GFR IS NOT APPLICABLE FOR DIALYSIS PATIENTS. POCT-GLUCOSE [id number] 00:32:00 Test Item Value Reference Range Comments POC-GLUCOSE METER (BEAKER) 119 mg/dL 70-110 TESTED AT [address] (test zqqv=8364) [place] [address] POCT-GLUCOSE [id number] 00:27:00 Test Item Value Reference Range Comments POC-GLUCOSE METER (BEAKER) 114 mg/dL 70-110 TESTED AT [address] (test yvur=9412) [place] [address] POCT-GLUCOSE [id number] 23:58:00 Test Item Value Reference Range Comments POC-GLUCOSE METER (BEAKER) 117 mg/dL 70-110 TESTED AT [address] (test osxj=5017) [place] [address] [id number] 21:24:00 Test Item Value Reference Range Comments MAGNESIUM (BEAKER) (test uscy=618) 2.0 mg/dL 1.6-2.6 POCT-GLUCOSE [id number] 20:24:00 Test Item Value Reference Range Comments POC-GLUCOSE METER (BEAKER) 130 mg/dL 70-110 TESTED AT [facility] [address] (test wdtf=2229) [facility] [address] [id number] 19:20:00 Test Item Value Reference Range Comments POTASSIUM (BEAKER) (test scxv=857) 3.6 meq/L 3.5-5.1 [id number] 19:20:00 Test Item Value Reference Range Comments GLUCOSE RANDOM (BEAKER) (test ezdu=906) 168 mg/dL 70-105 [id number] 18:01:00 Test Item Value Reference Range Comments PHOSPHORUS (BEAKER) (test ohms=496) 3.7 mg/dL 2.3-4.7 BASIC METABOLIC [id number] 18:01:00 Test Item Value Reference Range Comments SODIUM (BEAKER) (test 145 meq/L 136-145 upga=259) POTASSIUM (BEAKER) (test 3.9 meq/L 3.5-5.1 wbbf=140) CHLORIDE (BEAKER) (test 109 meq/L 98-107 otkj=986) CO2 (BEAKER) (test 27 meq/L 22-29 uvsv=874) BLOOD UREA NITROGEN 26 mg/dL 7-21 (BEAKER) (test vopt=349) CREATININE (BEAKER) (test 1.47 mg/dL 0.57-1.25 monu=573) GLUCOSE RANDOM (BEAKER) 210 mg/dL 70-105 (test gepd=169) CALCIUM (BEAKER) (test 8.5 mg/dL 8.4-10.2 eoht=063) EGFR (BEAKER) (test 43 mL/min/1.73 sq m ESTIMATED GFR IS NOT ftew=4093) ACCURATE CREATININE CLEARANCE IN PREDICTING GLOMERULAR FILTRATION RATE. ESTIMATED GFR IS NOT APPLICABLE FOR DIALYSIS PATIENTS. GLUCOSE-STAT [id number] 17:14:00 Test Item Value Reference Range Comments GLUCOSE RANDOM (BEAKER) (test fexe=329) 208 mg/dL 70-110 BLOOD GAS, [id number] 17:13:00 Test Item Value Reference Range Comments PH ARTERIAL (BEAKER) (test ljrw=744) 7.44 7.35-7.45 PCO2 ARTERIAL (BEAKER) (test biwp=740) 43 mmHg 35-45 PO2 ARTERIAL (BEAKER) (test hygi=950) 58 mmHg 80-90 O2 SATURATION ARTERIAL (BEAKER) (test bdvz=694) 90.8 % 96.0-97.0 HCO3 ARTERIAL (BEAKER) (test kujj=870) 28 mmol/L 21-29 BASE EXCESS ARTERIAL (BEAKER) (test ghqc=206) 3.9 mmol/L -2.0-3.0 PATIENT TEMPERATURE (BEAKER) (test ehcu=8074) 37.0 C FIO2 (BEAKER) (test xrih=1104) 100.0 % RAD, CHEST, 1 VIEW, NON [id number] 14:00:00Reason for exam:->post intubationShould this be performed at the bedside?->YesFINAL REPORT AP chest. HISTORY: Endotracheal tube COMPARISON: 07/24/2017 IMPRESSION:Endotracheal tube projects deep in the trachea, approximately 1-2 cm above the level of the toro. Cardiomegaly similar to previous. Worsening aeration at the left lung base. Mild pulmonary vascular congestion. No pneumothorax. Signed: Mitchel Jarquin MDReport Verified Date/Time: 07/24/2017 14:00:17 Reading Location: [address] Body Reading Room [id number] 13:40:00 Test Item Value Reference Range Comments PHOSPHORUS (BEAKER) (test wdjo=776) 4.3 mg/dL 2.3-4.7 [id number] 13:40:00 Test Item Value Reference Range Comments MAGNESIUM (BEAKER) (test irpo=884) 2.0 mg/dL 1.6-2.6 BASIC METABOLIC [id number] 13:40:00 Test Item Value Reference Range Comments SODIUM (BEAKER) (test 145 meq/L 136-145 ttld=614) POTASSIUM (BEAKER) (test 3.9 meq/L 3.5-5.1 qvss=317) CHLORIDE (BEAKER) (test 108 meq/L 98-107 pvsd=922) CO2 (BEAKER) (test 24 meq/L 22-29 dolw=280) BLOOD UREA NITROGEN 28 mg/dL 7-21 (BEAKER) (test kfhy=173) CREATININE (BEAKER) (test 1.43 mg/dL 0.57-1.25 ukxc=826) GLUCOSE RANDOM (BEAKER) 206 mg/dL 70-105 (test ylby=577) CALCIUM (BEAKER) (test 8.5 mg/dL 8.4-10.2 aipy=672) EGFR (BEAKER) (test 44 mL/min/1.73 sq m ESTIMATED GFR IS NOT syvg=8030) ACCURATE CREATININE CLEARANCE IN PREDICTING GLOMERULAR FILTRATION RATE. ESTIMATED GFR IS NOT APPLICABLE FOR DIALYSIS PATIENTS. LACTIC ACID, ARTERIAL, WHOLE [id number] 13:36:00 Test Item Value Reference Range Comments LACTATE BLOOD ARTERIAL (2) (BEAKER) (test 0.7 mmol/L 0.5-2.2 ghvo=8469) Effective 08/06/2015: Units/Reference Range ChangeNew: 0.5-2.2 mmol/L Previous: 5 -20 mg/dLCBC W/PLT COUNT & AUTO [id number] 13:24:00 Test Item Value Reference Range Comments WHITE BLOOD CELL COUNT (BEAKER) (test duxo=541) 10.5 K/ L 3.5-10.5 RED BLOOD CELL COUNT (BEAKER) (test ctoy=021) 2.70 M/ L 3.93-5.22 HEMOGLOBIN (BEAKER) (test ydpe=038) 8.1 GM/DL 11.2-15.7 HEMATOCRIT (BEAKER) (test qswr=967) 27.0 % 34.1-44.9 MEAN CORPUSCULAR VOLUME (BEAKER) (test wwyf=063) 100.0 fL 79.4-94.8 MEAN CORPUSCULAR HEMOGLOBIN (BEAKER) (test 30.0 pg 25.6-32.2 kxfy=939) MEAN CORPUSCULAR HEMOGLOBIN CONC (BEAKER) (test 30.0 GM/DL 32.2-35.5 rynp=552) RED CELL DISTRIBUTION WIDTH (BEAKER) (test 14.9 % 11.7-14.4 tkro=152) PLATELET COUNT (BEAKER) (test knjd=263) 117 K/CU MM 150-450 MEAN PLATELET VOLUME (BEAKER) (test xwai=275) 10.9 fL 9.4-12.3 NUCLEATED RED BLOOD CELLS (BEAKER) (test 0 /100 WBC 0-0 qqpx=108) NEUTROPHILS RELATIVE PERCENT (BEAKER) (test 78 % vypy=389) LYMPHOCYTES RELATIVE PERCENT (BEAKER) (test 10 % lhpk=964) MONOCYTES RELATIVE PERCENT (BEAKER) (test 10 % wrwj=583) EOSINOPHILS RELATIVE PERCENT (BEAKER) (test 1 % ybxt=434) BASOPHILS RELATIVE PERCENT (BEAKER) (test 0 % heat=755) NEUTROPHILS ABSOLUTE COUNT (BEAKER) (test 8.20 K/ L 1.56-6.13 igxq=159) LYMPHOCYTES ABSOLUTE COUNT (BEAKER) (test 1.00 K/ L 1.18-3.74 pkok=164) MONOCYTES ABSOLUTE COUNT (BEAKER) (test 1.06 K/ L 0.24-0.36 dzng=343) EOSINOPHILS ABSOLUTE COUNT (BEAKER) (test 0.09 K/ L 0.04-0.36 vciv=585) BASOPHILS ABSOLUTE COUNT (BEAKER) (test 0.04 K/ L 0.01-0.08 cvqs=994) IMMATURE GRANULOCYTES-RELATIVE PERCENT (BEAKER) 1 % 0-1 (test juhz=3741) OXYGEN SATURATION, [id number] 13:08:00 Test Item Value Reference Range Comments O2 SATURATION (MEASURED) (BEAKER) (test jzto=7729) 65.1 % PA catheter tipBLOOD GAS, [id number] 13:08:00 Test Item Value Reference Range Comments PH ARTERIAL (BEAKER) (test sist=114) 7.42 7.35-7.45 PCO2 ARTERIAL (BEAKER) (test cykq=846) 42 mmHg 35-45 PO2 ARTERIAL (BEAKER) (test vgdc=285) 239 mmHg 80-90 O2 SATURATION ARTERIAL (BEAKER) (test ekjw=047) 99.6 % 96.0-97.0 HCO3 ARTERIAL (BEAKER) (test tdav=485) 27 mmol/L 21-29 BASE EXCESS ARTERIAL (BEAKER) (test qkne=930) 2.1 mmol/L -2.0-3.0 PATIENT TEMPERATURE (BEAKER) (test siqp=2492) 36.6 C FIO2 (BEAKER) (test gafl=6951) 100.0 % GLUCOSE-STAT [id number] 13:08:00 Test Item Value Reference Range Comments GLUCOSE RANDOM (BEAKER) (test cdxo=986) 194 mg/dL 70-110 HGB/HCT (H&H) - STAT [id number] 13:08:00 Test Item Value Reference Range Comments HEMOGLOBIN (BEAKER) (test dxvn=779) 8.8 g/dL 12.0-15.0 HEMATOCRIT (BEAKER) (test bzlz=202) 26.0 % 36.0-45.0 CALCIUM, [id number] 13:08:00 Test Item Value Reference Range Comments CALCIUM IONIZED (BEAKER) (test arov=331) 1.08 mmol/L 1.12-1.27 PH, BLOOD (BEAKER) (test cqzp=8262) 7.41 SODIUM NA-STAT [id number] 13:07:00 Test Item Value Reference Range Comments SODIUM (BEAKER) (test weuj=069) 140 meq/L 135-148 POTASSIUM-STAT [id number] 13:07:00 Test Item Value Reference Range Comments POTASSIUM (BEAKER) (test wtxm=013) 3.7 meq/L 3.6-5.5 SODIUM NA-STAT [id number] 11:39:00 Test Item Value Reference Range Comments SODIUM (BEAKER) (test crhs=643) 141 meq/L 135-148 POTASSIUM-STAT [id number] 11:39:00 Test Item Value Reference Range Comments POTASSIUM (BEAKER) (test qwed=744) 3.6 meq/L 3.6-5.5 BLOOD GAS, [id number] 11:39:00 Test Item Value Reference Range Comments PH ARTERIAL (BEAKER) (test hhsg=221) 7.44 7.35-7.45 PCO2 ARTERIAL (BEAKER) (test tvkc=276) 42 mmHg 35-45 PO2 ARTERIAL (BEAKER) (test qmya=588) 234 mmHg 80-90 O2 SATURATION ARTERIAL (BEAKER) (test xfqh=666) 99.6 % 96.0-97.0 HCO3 ARTERIAL (BEAKER) (test raev=198) 28 mmol/L 21-29 BASE EXCESS ARTERIAL (BEAKER) (test yvqf=057) 3.4 mmol/L -2.0-3.0 PATIENT TEMPERATURE (BEAKER) (test jqgd=6926) 36.8 C FIO2 (BEAKER) (test mgva=8368) 86.0 % GLUCOSE-STAT [id number] 11:39:00 Test Item Value Reference Range Comments GLUCOSE RANDOM (BEAKER) (test ahzf=890) 194 mg/dL 70-110 HGB/HCT (H&H) - STAT [id number] 11:39:00 Test Item Value Reference Range Comments HEMOGLOBIN (BEAKER) (test sojb=209) 8.8 g/dL 12.0-15.0 HEMATOCRIT (BEAKER) (test ugya=961) 26.0 % 36.0-45.0 CALCIUM, [id number] 11:39:00 Test Item Value Reference Range Comments CALCIUM IONIZED (BEAKER) (test rmgd=705) 1.06 mmol/L 1.12-1.27 PH, BLOOD (BEAKER) (test othi=6865) 7.44 BLOOD GAS, [id number] 10:56:00 Test Item Value Reference Range Comments PH ARTERIAL (BEAKER) (test gxea=123) 7.43 7.35-7.45 PCO2 ARTERIAL (BEAKER) (test iloq=892) 46 mmHg 35-45 PO2 ARTERIAL (BEAKER) (test hkfq=397) 223 mmHg 80-90 O2 SATURATION ARTERIAL (BEAKER) (test gsns=696) 99.5 % 96.0-97.0 HCO3 ARTERIAL (BEAKER) (test fted=914) 30 mmol/L 21-29 BASE EXCESS ARTERIAL (BEAKER) (test syqy=340) 4.6 mmol/L -2.0-3.0 PATIENT TEMPERATURE (BEAKER) (test dkay=6051) 37.0 C FIO2 (BEAKER) (test zjiz=0312) 100.0 % GLUCOSE-STAT [id number] 10:56:00 Test Item Value Reference Range Comments GLUCOSE RANDOM (BEAKER) (test nxax=005) 190 mg/dL 70-110 HGB/HCT (H&H) - STAT [id number] 10:56:00 Test Item Value Reference Range Comments HEMOGLOBIN (BEAKER) (test khzn=675) 8.7 g/dL 12.0-15.0 HEMATOCRIT (BEAKER) (test sjnk=290) 26.0 % 36.0-45.0 SODIUM NA-STAT [id number] 10:55:00 Test Item Value Reference Range Comments SODIUM (BEAKER) (test ctli=068) 142 meq/L 135-148 POTASSIUM-STAT [id number] 10:55:00 Test Item Value Reference Range Comments POTASSIUM (BEAKER) (test ilgt=894) 3.5 meq/L 3.6-5.5 [id number] 08:41:00 Test Item Value Reference Range Comments MAGNESIUM (BEAKER) (test pqqz=486) 2.0 mg/dL 1.6-2.6 BLOOD GAS, [id number] 07:57:00 Test Item Value Reference Range Comments PH ARTERIAL (BEAKER) (test ktrj=087) 7.48 7.35-7.45 PCO2 ARTERIAL (BEAKER) (test pejs=780) 37 mmHg 35-45 PO2 ARTERIAL (BEAKER) (test qhly=849) 71 mmHg 80-90 O2 SATURATION ARTERIAL (BEAKER) (test gnpk=689) 94.8 % 96.0-97.0 HCO3 ARTERIAL (BEAKER) (test mbyx=589) 27 mmol/L 21-29 BASE EXCESS ARTERIAL (BEAKER) (test ibkc=864) 3.5 mmol/L -2.0-3.0 PATIENT TEMPERATURE (BEAKER) (test rofc=5021) 37.8 C FIO2 (BEAKER) (test eyde=3631) 32.0 % POCT-GLUCOSE [id number] 07:50:00 Test Item Value Reference Range Comments POC-GLUCOSE METER (BEAKER) 246 mg/dL 70-110 TESTED AT [facility] [address] [place] [address] (test jnkz=3640) [facility] [address] RAD, CHEST, 1 VIEW, NON [id number] 04:54:00Reason for exam:-> impellaShould this be performed at the bedside?->YesFINAL REPORT CLINICAL INDICATION: Support lines. Comparison: 07/23/2017 The cardiomediastinal contours are stable. Central pulmonary vascular prominence and bilateral parenchymalopacities are similar to previous. There is no pneumothorax. Support lines are stable. Signed: Adelso Sorensen Verified Date/Time: 07/24/2017 04:54:08 Reading Location: [address] Reading Room POCT-GLUCOSE [id number] 04:08:00 Test Item Value Reference Range Comments POC-GLUCOSE METER (BEAKER) 137 mg/dL 70-110 TESTED AT [facility] [address] (test jexl=4318) [place] [address] [id number] 03:02:00 Test Item Value Reference Range Comments PHOSPHORUS (BEAKER) (test qfzv=672) 3.7 mg/dL 2.3-4.7 [id number] 03:02:00 Test Item Value Reference Range Comments MAGNESIUM (BEAKER) (test ihnq=863) 2.3 mg/dL 1.6-2.6 BASIC METABOLIC [id number] 03:02:00 Test Item Value Reference Range Comments SODIUM (BEAKER) (test 145 meq/L 136-145 lbcx=718) POTASSIUM (BEAKER) (test 4.0 meq/L 3.5-5.1 nhbw=397) CHLORIDE (BEAKER) (test 106 meq/L 98-107 vgrf=477) CO2 (BEAKER) (test 26 meq/L 22-29 eptm=960) BLOOD UREA NITROGEN 26 mg/dL 7-21 (BEAKER) (test ixsb=880) CREATININE (BEAKER) (test 1.47 mg/dL 0.57-1.25 njlm=187) GLUCOSE RANDOM (BEAKER) 141 mg/dL 70-105 (test ssnz=970) CALCIUM (BEAKER) (test 9.0 mg/dL 8.4-10.2 uhgw=821) EGFR (BEAKER) (test 43 mL/min/1.73 sq m ESTIMATED GFR IS NOT sqjh=5767) ACCURATE CREATININE CLEARANCE IN PREDICTING GLOMERULAR FILTRATION RATE. ESTIMATED GFR IS NOT APPLICABLE FOR DIALYSIS PATIENTS. HEPATIC FUNCTION [id number] 03:02:00 Test Item Value Reference Range Comments TOTAL PROTEIN (BEAKER) (test pizt=144) 6.6 gm/dL 6.0-8.3 ALBUMIN (BEAKER) (test kvus=0192) 3.2 g/dL 3.5-5.0 BILIRUBIN TOTAL (BEAKER) (test grho=093) 1.2 mg/dL 0.2-1.2 BILIRUBIN DIRECT (BEAKER) (test qfij=188) 0.6 mg/dL 0.1-0.5 ALKALINE PHOSPHATASE (BEAKER) (test wcsd=281) 55 U/L 40-150 AST (SGOT) (BEAKER) (test ujjw=400) 33 U/L 5-34 ALT (SGPT) (BEAKER) (test qtqm=365) 25 U/L 6-55 LACTATE DEHYDROGENASE (LDH)2017-07-24 03:02:00 Test Item Value Reference Range Comments LACTATE DEHYDROGENASE (BEAKER) (test zbzr=435) 879 U/L 125-220 CBC W/PLT COUNT & AUTO [id number] 02:53:00 Test Item Value Reference Range Comments WHITE BLOOD CELL COUNT (BEAKER) (test zwly=192) 12.6 K/ L 3.5-10.5 RED BLOOD CELL COUNT (BEAKER) (test zepz=743) 2.93 M/ L 3.93-5.22 HEMOGLOBIN (BEAKER) (test uepk=445) 8.7 GM/DL 11.2-15.7 HEMATOCRIT (BEAKER) (test lzhr=774) 28.3 % 34.1-44.9 MEAN CORPUSCULAR VOLUME (BEAKER) (test dskj=620) 96.6 fL 79.4-94.8 MEAN CORPUSCULAR HEMOGLOBIN (BEAKER) (test 29.7 pg 25.6-32.2 zgey=901) MEAN CORPUSCULAR HEMOGLOBIN CONC (BEAKER) (test 30.7 GM/DL 32.2-35.5 qgmv=088) RED CELL DISTRIBUTION WIDTH (BEAKER) (test 14.7 % 11.7-14.4 ofcb=724) PLATELET COUNT (BEAKER) (test twnz=518) 126 K/CU MM 150-450 MEAN PLATELET VOLUME (BEAKER) (test vzeh=788) 11.0 fL 9.4-12.3 NUCLEATED RED BLOOD CELLS (BEAKER) (test 0 /100 WBC 0-0 gizf=180) NEUTROPHILS RELATIVE PERCENT (BEAKER) (test 78 % xxdm=618) LYMPHOCYTES RELATIVE PERCENT (BEAKER) (test 10 % htmn=524) MONOCYTES RELATIVE PERCENT (BEAKER) (test 10 % ozbz=973) EOSINOPHILS RELATIVE PERCENT (BEAKER) (test 1 % uagg=326) BASOPHILS RELATIVE PERCENT (BEAKER) (test 0 % mvsp=768) NEUTROPHILS ABSOLUTE COUNT (BEAKER) (test 9.85 K/ L 1.56-6.13 pyak=220) LYMPHOCYTES ABSOLUTE COUNT (BEAKER) (test 1.27 K/ L 1.18-3.74 svpn=332) MONOCYTES ABSOLUTE COUNT (BEAKER) (test 1.25 K/ L 0.24-0.36 nvzl=485) EOSINOPHILS ABSOLUTE COUNT (BEAKER) (test 0.10 K/ L 0.04-0.36 dfpv=183) BASOPHILS ABSOLUTE COUNT (BEAKER) (test 0.05 K/ L 0.01-0.08 oycz=977) IMMATURE GRANULOCYTES-RELATIVE PERCENT (BEAKER) 1 % 0-1 (test dgkk=1835) [id number] 02:50:00 Test Item Value Reference Range Comments PROTIME (BEAKER) (test nwnz=183) 16.7 seconds 11.7-14.7 INR (BEAKER) (test aeho=489) 1.4 <=5.9 PARTIAL THROMBOPLASTIN TIME (BEAKER) (test 78.5 seconds 22.5-36.0 wrha=611) RECOMMENDED COUMADIN/WARFARIN INR THERAPY RANGESSTANDARD DOSE: 2.0 - 3.0 Includes: PROPHYLAXIS forvenous thrombosis, systemic embolization; TREATMENT for venous thrombosis and/or pulmonary embolus.HIGH RISK: Target INR is 2.5-3.5 for patients with mechanical heart valves.BLOOD [id number] 00:00:00 Test Item Value Reference Range Comments CULTURE (BEAKER) (test wprw=1146) No growth in 5 days BLOOD [id number] 00:00:00 Test Item Value Reference Range Comments CULTURE (BEAKER) (test blci=8884) No growth in 5 days [id number] 22:01:00 Test Item Value Reference Range Comments MAGNESIUM (BEAKER) (test jrqp=772) 2.0 mg/dL 1.6-2.6 POCT-GLUCOSE [id number] 19:39:00 Test Item Value Reference Range Comments POC-GLUCOSE METER (BEAKER) 135 mg/dL 70-110 TESTED AT [facility] [address] [facility] (test nexx=1967) [facility] [address] BASIC METABOLIC [id number] 19:08:00 Test Item Value Reference Range Comments SODIUM (BEAKER) (test 145 meq/L 136-145 lnxg=705) POTASSIUM (BEAKER) (test 3.9 meq/L 3.5-5.1 tcmj=844) CHLORIDE (BEAKER) (test 106 meq/L 98-107 izmi=013) CO2 (BEAKER) (test 28 meq/L 22-29 ehsb=850) BLOOD UREA NITROGEN 26 mg/dL 7-21 (BEAKER) (test xgsu=916) CREATININE (BEAKER) (test 1.45 mg/dL 0.57-1.25 tleh=152) GLUCOSE RANDOM (BEAKER) 119 mg/dL 70-105 (test nxue=993) CALCIUM (BEAKER) (test 9.2 mg/dL 8.4-10.2 oish=127) EGFR (BEAKER) (test 43 mL/min/1.73 sq m ESTIMATED GFR IS NOT ausu=5218) ACCURATE CREATININE CLEARANCE IN PREDICTING GLOMERULAR FILTRATION RATE. ESTIMATED GFR IS NOT APPLICABLE FOR DIALYSIS PATIENTS. [id number] 19:06:00 Test Item Value Reference Range Comments PHOSPHORUS (BEAKER) (test bsmk=681) 3.7 mg/dL 2.3-4.7 VANCOMYCIN LEVEL, [id number] 16:33:00 Test Item Value Reference Range Comments VANCOMYCIN TROUGH (BEAKER) (test gntn=997) 17.8 ug/mL 10.0-20.0 If vancomycin trough level > 20 mcg/mL, hold next vancomycin dose, and contact MD and pharmacist.VARICELLA ZOSTER ANTIBODY, [id number] 14:47:00 Test Item Value Reference Range Comments VARICELLA ZOSTER IGG (AL) (BEAKER) (test tqtl=6577) 2.3 Al VARICELLA ZOSTER RESULT INTERPRETATIONS: <=0.8 Al Nonreactive: Presumed non-immune to VZV 0.9-1.0 Al Equivocal >=1.1 Al Reactive: Presumed immune to VZVCYTOMEGALOVIRUS ANTIBODY, [id number] 14:46:00 Test Item Value Reference Range Comments CYTOMEGALOVIRUS IGG ANTIBODY (BEAKER) (test Negative udbk=975) CYTOMEGALOVIRUS ANTIBODY, [id number] 14:46:00 Test Item Value Reference Range Comments CYTOMEGALOVIRUS IGM ANTIBODY (BEAKER) (test Negative lwrp=443) EBV-VCA ANTIBODY, [id number] 14:46:00 Test Item Value Reference Range Comments MARIO-CARMEN VCA IGG (BEAKER) (test khim=177) Positive EBV-VCA ANTIBODY, [id number] 14:46:00 Test Item Value Reference Range Comments MARIO-CARMEN VCA IGM (BEAKER) (test xtcg=418) Negative HERPES VIRUS ANTIBODY, [id number] 14:45:00 Test Item Value Reference Range Comments HERPES VIRUS IGG (BEAKER) (test onjm=2871) Negative HSV IgG 1=NEGATIVEHSV IgG 2=NEGATIVETOXOPLASMA GONDII ANTIBODY, [id number] 14 :45:00 Test Item Value Reference Range Comments TOXOPLASMA GONDII IGG (BEAKER) (test rhre=605) Negative [id number] 14:37:00 Test Item Value Reference Range Comments PARTIAL THROMBOPLASTIN TIME (BEAKER) (test 69.5 seconds 22.5-36.0 eeua=817) OCCULT BLOOD, [id number] 14:34:00 Test Item Value Reference Range Comments FECAL OCCULT BLOOD (BEAKER) (test ruvj=844) Negative Negative POCT-GLUCOSE [id number] 14:20:00 Test Item Value Reference Range Comments POC-GLUCOSE METER (BEAKER) 166 mg/dL 70-110 TESTED AT [address] (test ynbn=1974) [facility] [address] POCT-GLUCOSE [id number] 14:20:00 Test Item Value Reference Range Comments POC-GLUCOSE METER (BEAKER) 82 mg/dL 70-110 TESTED AT [address] (test dmky=3010) [place] [id number] 13:00:00 Test Item Value Reference Range Comments PHOSPHORUS (BEAKER) (test tmkq=579) 3.2 mg/dL 2.3-4.7 BASIC METABOLIC [id number] 13:00:00 Test Item Value Reference Range Comments SODIUM (BEAKER) (test 143 meq/L 136-145 yysn=837) POTASSIUM (BEAKER) (test 3.8 meq/L 3.5-5.1 wgyi=530) CHLORIDE (BEAKER) (test 104 meq/L 98-107 qkza=224) CO2 (BEAKER) (test 29 meq/L 22-29 iohy=294) BLOOD UREA NITROGEN 28 mg/dL 7-21 (BEAKER) (test reei=324) CREATININE (BEAKER) (test 1.44 mg/dL 0.57-1.25 jprp=406) GLUCOSE RANDOM (BEAKER) 171 mg/dL 70-105 (test ipqo=167) CALCIUM (BEAKER) (test 9.1 mg/dL 8.4-10.2 phny=517) EGFR (BEAKER) (test 44 mL/min/1.73 sq m ESTIMATED GFR IS NOT nbgd=8111) ACCURATE CREATININE CLEARANCE IN PREDICTING GLOMERULAR FILTRATION RATE. ESTIMATED GFR IS NOT APPLICABLE FOR DIALYSIS PATIENTS. POCT-GLUCOSE [id number] 12:29:00 Test Item Value Reference Range Comments POC-GLUCOSE METER (BEAKER) 179 mg/dL 70-110 TESTED AT [address] (test lmcr=7135) [place] [address] CREATININE [id number] 11:15:00 Test Item Value Reference Range Comments CREATININE CLEARANCE (BEAKER) 45.8 mL/min 70.0-140.0 (test iuxv=392) VOLUME, TOTAL (BEAKER) (test 3400 ml xdld=3636) CREATININE URINE (BEAKER) (test 36.8 mg/dL kqmg=946) [id number] (BEAKER) Анна Encarnacion MD (test fkzu=8636) (electronic signature) PATIENT HEIGHT (CM) (BEAKER) 165.1 cm (test jked=0344) PATIENT WEIGHT (KG) (BEAKER) 84.100 kg (test gspu=7950) [id number] 09:15:00 Test Item Value Reference Range Comments POTASSIUM (BEAKER) (test tpsy=018) 4.1 meq/L 3.5-5.1 PRN - repeat potassium levels every 1 hour until glucose level is less than 450 mg/[id number] 09:15:00 Test Item Value Reference Range Comments MAGNESIUM (BEAKER) (test wktq=064) 2.4 mg/dL 1.6-2.6 PRN - repeat potassium levels every 1 hour until glucose level is less than 450 mg/dLPOCT-GLUCOSE [id number] 08:47:00 Test Item Value Reference Range Comments POC-GLUCOSE METER (BEAKER) 155 mg/dL 70-110 TESTED AT [address] (test dvwr=4708) [place] [address] POCT-GLUCOSE [id number] 06:12:00 Test Item Value Reference Range Comments POC-GLUCOSE METER (BEAKER) 143 mg/dL 70-110 TESTED AT [facility] [address] [facility] (test gejv=3367) [facility] [address] POCT-GLUCOSE [id number] 06:12:00 Test Item Value Reference Range Comments POC-GLUCOSE METER (BEAKER) 123 mg/dL 70-110 TESTED AT [place] [id number] [facility] (test pfjj=5829) [facility] [address] RAD, CHEST, 1 VIEW, NON [id number] 05:36:00Reason for exam:->respiratory insufficiencyFINAL REPORT Chest one view. Clinical history: respiratory insufficiency Comparison: Chest radiograph 07/22/2017 Technique: A single frontal view of the chest was obtained. Findings: Cardiomediastinal contours are unchanged. There is a right IJ [place] catheter, with tip inthe right pulmonary artery. [...] [place]ort Verified Date/Time: 07/23/2017 05:36:35 Reading Location: [address] Reading Room CALCIUM, [id number] 05:19:00 Test Item Value Reference Range Comments CALCIUM IONIZED (BEAKER) (test wrou=295) 1.12 mmol/L 1.12-1.27 PH, BLOOD (BEAKER) (test fqol=0095) 7.40 OXYGEN SATURATION, [id number] 05:18:00 Test Item Value Reference Range Comments O2 SATURATION (MEASURED) (BEAKER) (test pvnz=3445) 63.1 % POCT-GLUCOSE [id number] 05:05:00 Test Item Value Reference Range Comments POC-GLUCOSE METER (BEAKER) 131 mg/dL 70-110 TESTED AT [facility] [address] (test fgbr=9272) [place] [address] BLOOD GAS, [id number] 04:58:00 Test Item Value Reference Range Comments PH ARTERIAL (BEAKER) (test ksvj=834) 7.41 7.35-7.45 PCO2 ARTERIAL (BEAKER) (test ujer=814) 51 mmHg 35-45 PO2 ARTERIAL (BEAKER) (test jqld=898) 93 mmHg 80-90 O2 SATURATION ARTERIAL (BEAKER) (test nxnp=470) 96.9 % 96.0-97.0 HCO3 ARTERIAL (BEAKER) (test uvoy=452) 31 mmol/L 21-29 BASE EXCESS ARTERIAL (BEAKER) (test qmvw=925) 5.9 mmol/L -2.0-3.0 PATIENT TEMPERATURE (BEAKER) (test uqpy=8436) 37.4 C FIO2 (BEAKER) (test hibo=5863) 70.0 % [id number] 03:35:00 Test Item Value Reference Range Comments PARTIAL THROMBOPLASTIN TIME (BEAKER) (test 70.8 seconds 22.5-36.0 twlz=557) [id number] 03:34:00 Test Item Value Reference Range Comments PHOSPHORUS (BEAKER) (test dntp=682) 3.0 mg/dL 2.3-4.7 [id number] 03:34:00 Test Item Value Reference Range Comments MAGNESIUM (BEAKER) (test dzyy=703) 2.1 mg/dL 1.6-2.6 BASIC METABOLIC [id number] 03:34:00 Test Item Value Reference Range Comments SODIUM (BEAKER) (test 144 meq/L 136-145 jawg=748) POTASSIUM (BEAKER) (test 3.9 meq/L 3.5-5.1 jwoj=776) CHLORIDE (BEAKER) (test 105 meq/L 98-107 zylv=215) CO2 (BEAKER) (test 29 meq/L 22-29 owln=141) BLOOD UREA NITROGEN 29 mg/dL 7-21 (BEAKER) (test qkfr=303) CREATININE (BEAKER) (test 1.54 mg/dL 0.57-1.25 yymu=459) GLUCOSE RANDOM (BEAKER) 119 mg/dL 70-105 (test vmzz=196) CALCIUM (BEAKER) (test 9.1 mg/dL 8.4-10.2 krjy=480) EGFR (BEAKER) (test 40 mL/min/1.73 sq m ESTIMATED GFR IS NOT vszd=6197) ACCURATE CREATININE CLEARANCE IN PREDICTING GLOMERULAR FILTRATION RATE. ESTIMATED GFR IS NOT APPLICABLE FOR DIALYSIS PATIENTS. HEPATIC FUNCTION [id number] 03:34:00 Test Item Value Reference Range Comments TOTAL PROTEIN (BEAKER) (test govo=418) 6.7 gm/dL 6.0-8.3 ALBUMIN (BEAKER) (test vdre=3918) 3.3 g/dL 3.5-5.0 BILIRUBIN TOTAL (BEAKER) (test okfy=014) 1.2 mg/dL 0.2-1.2 BILIRUBIN DIRECT (BEAKER) (test tpmx=208) 0.6 mg/dL 0.1-0.5 ALKALINE PHOSPHATASE (BEAKER) (test emdt=828) 51 U/L 40-150 AST (SGOT) (BEAKER) (test dgbp=406) 48 U/L 5-34 ALT (SGPT) (BEAKER) (test qyji=875) 29 U/L 6-55 LACTATE DEHYDROGENASE (LDH)2017-07-23 03:34:00 Test Item Value Reference Range Comments LACTATE DEHYDROGENASE (BEAKER) (test wdod=755) 1020 U/L 125-220 CBC W/PLT COUNT & AUTO [id number] 03:25:00 Test Item Value Reference Range Comments WHITE BLOOD CELL COUNT (BEAKER) (test xxql=054) 11.7 K/ L 3.5-10.5 RED BLOOD CELL COUNT (BEAKER) (test bczq=694) 3.01 M/ L 3.93-5.22 HEMOGLOBIN (BEAKER) (test ttpd=525) 9.0 GM/DL 11.2-15.7 HEMATOCRIT (BEAKER) (test lfiy=273) 28.9 % 34.1-44.9 MEAN CORPUSCULAR VOLUME (BEAKER) (test ttxs=503) 96.0 fL 79.4-94.8 MEAN CORPUSCULAR HEMOGLOBIN (BEAKER) (test 29.9 pg 25.6-32.2 qhue=469) MEAN CORPUSCULAR HEMOGLOBIN CONC (BEAKER) (test 31.1 GM/DL 32.2-35.5 qroi=760) RED CELL DISTRIBUTION WIDTH (BEAKER) (test 15.0 % 11.7-14.4 cbgc=199) PLATELET COUNT (BEAKER) (test drto=871) 128 K/CU MM 150-450 MEAN PLATELET VOLUME (BEAKER) (test nhjz=541) 11.3 fL 9.4-12.3 NUCLEATED RED BLOOD CELLS (BEAKER) (test 0 /100 WBC 0-0 azsk=089) NEUTROPHILS RELATIVE PERCENT (BEAKER) (test 78 % wscd=945) LYMPHOCYTES RELATIVE PERCENT (BEAKER) (test 11 % dpca=090) MONOCYTES RELATIVE PERCENT (BEAKER) (test 10 % etsa=179) EOSINOPHILS RELATIVE PERCENT (BEAKER) (test 1 % rcuj=658) BASOPHILS RELATIVE PERCENT (BEAKER) (test 0 % sedz=029) NEUTROPHILS ABSOLUTE COUNT (BEAKER) (test 9.07 K/ L 1.56-6.13 eeil=674) LYMPHOCYTES ABSOLUTE COUNT (BEAKER) (test 1.25 K/ L 1.18-3.74 gsnw=246) MONOCYTES ABSOLUTE COUNT (BEAKER) (test 1.12 K/ L 0.24-0.36 bkjm=604) EOSINOPHILS ABSOLUTE COUNT (BEAKER) (test 0.12 K/ L 0.04-0.36 rvcq=411) BASOPHILS ABSOLUTE COUNT (BEAKER) (test 0.05 K/ L 0.01-0.08 cmfa=088) IMMATURE GRANULOCYTES-RELATIVE PERCENT (BEAKER) 1 % 0-1 (test axvq=6505) POCT-GLUCOSE [id number] 03:09:00 Test Item Value Reference Range Comments POC-GLUCOSE METER (BEAKER) 114 mg/dL 70-110 TESTED AT [address] (test ylka=5112) [place] [id number] POCT-GLUCOSE [id number] 03:09:00 Test Item Value Reference Range Comments POC-GLUCOSE METER (BEAKER) 122 mg/dL 70-110 TESTED AT [address] (test cdsq=3510) [place] [id number] BASIC METABOLIC [id number] 00:32:00 Test Item Value Reference Range Comments SODIUM (BEAKER) (test 144 meq/L 136-145 uapq=348) POTASSIUM (BEAKER) (test 4.2 meq/L 3.5-5.1 onzl=968) CHLORIDE (BEAKER) (test 105 meq/L 98-107 vmlu=149) CO2 (BEAKER) (test 28 meq/L 22-29 kdxy=977) BLOOD UREA NITROGEN 30 mg/dL 7-21 (BEAKER) (test nupy=429) CREATININE (BEAKER) (test 1.56 mg/dL 0.57-1.25 pwbz=525) GLUCOSE RANDOM (BEAKER) 131 mg/dL 70-105 (test sczy=014) CALCIUM (BEAKER) (test 9.0 mg/dL 8.4-10.2 rsvd=553) EGFR (BEAKER) (test 40 mL/min/1.73 sq m ESTIMATED GFR IS NOT ixlf=7086) ACCURATE CREATININE CLEARANCE IN PREDICTING GLOMERULAR FILTRATION RATE. ESTIMATED GFR IS NOT APPLICABLE FOR DIALYSIS PATIENTS. [id number] 00:31:00 Test Item Value Reference Range Comments PHOSPHORUS (BEAKER) (test tghm=741) 3.4 mg/dL 2.3-4.7 POCT-GLUCOSE [id number] 00:10:00 Test Item Value Reference Range Comments POC-GLUCOSE METER (BEAKER) 140 mg/dL 70-110 TESTED AT [address] (test vycu=9039) [facility] [address] POCT-GLUCOSE [id number] 00:08:00 Test Item Value Reference Range Comments POC-GLUCOSE METER (BEAKER) 121 mg/dL 70-110 TESTED AT [address] (test wrgc=6086) [facility] [address] POCT-GLUCOSE [id number] 00:08:00 Test Item Value Reference Range Comments POC-GLUCOSE METER (BEAKER) 112 mg/dL 70-110 TESTED AT [address] (test tmgq=6539) [facility] [address] POCT-GLUCOSE [id number] 00:08:00 Test Item Value Reference Range Comments POC-GLUCOSE METER (BEAKER) 84 mg/dL 70-110 TESTED AT [address] (test dcnn=2208) [facility] [address] BASIC METABOLIC [id number] 20:36:00 Test Item Value Reference Range Comments SODIUM (BEAKER) (test 145 meq/L 136-145 enit=058) POTASSIUM (BEAKER) (test 3.6 meq/L 3.5-5.1 byks=382) CHLORIDE (BEAKER) (test 106 meq/L 98-107 pqom=251) CO2 (BEAKER) (test 31 meq/L 22-29 pyaa=604) BLOOD UREA NITROGEN 32 mg/dL 7-21 (BEAKER) (test iarx=247) CREATININE (BEAKER) (test 1.56 mg/dL 0.57-1.25 khuf=628) GLUCOSE RANDOM (BEAKER) 85 mg/dL 70-105 (test rfoa=241) CALCIUM (BEAKER) (test 9.0 mg/dL 8.4-10.2 qnho=904) EGFR (BEAKER) (test 40 mL/min/1.73 sq m ESTIMATED GFR IS NOT bnic=8126) ACCURATE CREATININE CLEARANCE IN PREDICTING GLOMERULAR FILTRATION RATE. ESTIMATED GFR IS NOT APPLICABLE FOR DIALYSIS PATIENTS. [id number] 20:36:00 Test Item Value Reference Range Comments MAGNESIUM (BEAKER) (test mjpn=178) 2.4 mg/dL 1.6-2.6 [id number] 18:26:00 Test Item Value Reference Range Comments PHOSPHORUS (BEAKER) (test acof=814) 2.4 mg/dL 2.3-4.7 BASIC METABOLIC [id number] 18:26:00 Test Item Value Reference Range Comments SODIUM (BEAKER) (test 144 meq/L 136-145 pbkz=282) POTASSIUM (BEAKER) (test 3.9 meq/L 3.5-5.1 sgui=735) CHLORIDE (BEAKER) (test 106 meq/L 98-107 isvx=892) CO2 (BEAKER) (test 30 meq/L 22-29 vbua=932) BLOOD UREA NITROGEN 32 mg/dL 7-21 (BEAKER) (test guej=799) CREATININE (BEAKER) (test 1.67 mg/dL 0.57-1.25 btbr=763) GLUCOSE RANDOM (BEAKER) 141 mg/dL 70-105 (test pfrt=543) CALCIUM (BEAKER) (test 9.1 mg/dL 8.4-10.2 fvkp=393) EGFR (BEAKER) (test 37 mL/min/1.73 sq m ESTIMATED GFR IS NOT uish=6084) ACCURATE CREATININE CLEARANCE IN PREDICTING GLOMERULAR FILTRATION RATE. ESTIMATED GFR IS NOT APPLICABLE FOR DIALYSIS PATIENTS. LACTIC ACID, ARTERIAL, WHOLE [id number] 18:22:00 Test Item Value Reference Range Comments LACTATE BLOOD ARTERIAL (2) (BEAKER) (test 1.0 mmol/L 0.5-2.2 hqyl=0271) Effective 08/06/2015: Units/Reference Range ChangeNew: 0.5-2.2 mmol/L Previous: 5 -20 mg/dLPOCT-GLUCOSE [id number] 17:56:00 Test Item Value Reference Range Comments POC-GLUCOSE METER (BEAKER) 138 mg/dL 70-110 TESTED AT [address] (test fqgu=1711) [place] [address] [id number] 16:19:00 Test Item Value Reference Range Comments POTASSIUM (BEAKER) (test wila=515) 3.8 meq/L 3.5-5.1 PRN - repeat potassium levels every 1 hour until glucose level is less than 450 mg/[id number] 16:06:00 Test Item Value Reference Range Comments PARTIAL THROMBOPLASTIN TIME (BEAKER) (test 71.3 seconds 22.5-36.0 udhw=030) OXYGEN SATURATION, [id number] 15:58:00 Test Item Value Reference Range Comments O2 SATURATION (MEASURED) (BEAKER) (test pppt=6759) 58.6 % calibrationPOCT-GLUCOSE [id number] 15:51:00 Test Item Value Reference Range Comments POC-GLUCOSE METER (BEAKER) 147 mg/dL 70-110 TESTED AT [address] (test upgp=8991) [place] [address] RAD, CHEST, 1 VIEW, NON [id number] 14:57:00Reason for exam:->s/p CVC placement Should this be performed at the bedside?->YesFINAL REPORT TECHNIQUE: Frontal chest radiograph dated 07/22/2017. CLINICAL HISTORY: CVC placement COMPARISON STUDY: Chest radiograph performed earlier the same day. IMPRESSION:There has been interval placement of a right-sided [place]- Jagdeep catheter with the tip in the main pulmonary artery. Impella device is unchanged in appearance. There is left lung base atelectasis. No pleural effusion or pneumothorax. Cardiomediastinal silhouette is normal in size. No pulmonary edema. Bonesare osteopenic. No fracture. Signed: Dawson Noeleport Verified Date/Time: 07/22/2017 14:57:48 Reading Location: [facility] Radiology Reading Room PROTEIN ELECTROPHORESIS, [id number] 14:45:00 Test Item Value Reference Range Comments ALBUMIN FRACTION (BEAKER) 3.0 g/dL 3.5-5.5 (test ejgk=476) ALPHA 1 FRACTION (BEAKER) 0.4 g/dL 0.2-0.4 (test bdsx=649) ALPHA 2 FRACTION (BEAKER) 0.5 g/dL 0.5-0.9 (test verd=040) BETA FRACTION (BEAKER) (test 1.0 g/dL 0.6-1.1 ltno=523) GAMMA GLOBULIN FRACTION 1.2 g/dL 0.7-1.7 (BEAKER) (test yiqf=388) INTERPRETATION-119 (BEAKER) Albumin decreased. Alpha (test etuj=5334) globulin percentages increased. This suggests an acute phase response. [id number] (BEAKER) Анна Encarnacion MD (electronic (test xljp=5010) signature) PROTEIN TOTAL SERUM, SPEP 6.1 gm/dL 6.0-8.3 (BEAKER) (test gxdg=4450) POCT-GLUCOSE [id number] 14:34:00 Test Item Value Reference Range Comments POC-GLUCOSE METER (BEAKER) 137 mg/dL 70-110 TESTED AT [address] (test mnqn=7889) [facility] [address] ANTI-NUCLEAR ANTIBODY (ROSLYN)2017-07-22 13:24:00 Test Item Value Reference Range Comments ANTI-NUCLEAR ANTIBODY (ROSLYN) (BEAKER) (test Positive Negative tgdx=598) ROSLYN TITER AND [id number] 13:24:00 Test Item Value Reference Range Comments ROSLYN TITER (BEAKER) (test qhjm=6834) :640 ROSLYN PATTERN (BEAKER) (test sjow=2862) Homogeneous [id number] 12:50:00 Test Item Value Reference Range Comments PHOSPHORUS (BEAKER) (test nnmk=824) 2.5 mg/dL 2.3-4.7 BASIC METABOLIC [id number] 12:50:00 Test Item Value Reference Range Comments SODIUM (BEAKER) (test 145 meq/L 136-145 vkws=714) POTASSIUM (BEAKER) (test 3.6 meq/L 3.5-5.1 pvgm=959) CHLORIDE (BEAKER) (test 107 meq/L 98-107 vcsw=047) CO2 (BEAKER) (test 30 meq/L 22-29 cnla=357) BLOOD UREA NITROGEN 37 mg/dL 7-21 (BEAKER) (test xaca=249) CREATININE (BEAKER) (test 1.69 mg/dL 0.57-1.25 tllg=077) GLUCOSE RANDOM (BEAKER) 154 mg/dL 70-105 (test pjpx=336) CALCIUM (BEAKER) (test 8.9 mg/dL 8.4-10.2 yzly=372) EGFR (BEAKER) (test 36 mL/min/1.73 sq m ESTIMATED GFR IS NOT vihk=5797) ACCURATE CREATININE CLEARANCE IN PREDICTING GLOMERULAR FILTRATION RATE. ESTIMATED GFR IS NOT APPLICABLE FOR DIALYSIS PATIENTS. BLOOD GAS, [id number] 12:36:00 Test Item Value Reference Range Comments PH ARTERIAL (BEAKER) (test ohqv=456) 7.48 7.35-7.45 PCO2 ARTERIAL (BEAKER) (test anph=994) 44 mmHg 35-45 PO2 ARTERIAL (BEAKER) (test fyfp=711) 156 mmHg 80-90 O2 SATURATION ARTERIAL (BEAKER) (test illt=266) 99.1 % 96.0-97.0 HCO3 ARTERIAL (BEAKER) (test ethw=386) 32 mmol/L 21-29 BASE EXCESS ARTERIAL (BEAKER) (test ogpj=658) 7.4 mmol/L -2.0-3.0 PATIENT TEMPERATURE (BEAKER) (test sixh=7430) 37.4 C FIO2 (BEAKER) (test wfqg=9586) 80.0 % POCT-GLUCOSE [id number] 12:26:00 Test Item Value Reference Range Comments POC-GLUCOSE METER (BEAKER) 147 mg/dL 70-110 TESTED AT [facility] [address] [facility] (test vhfx=3574) [facility] [address] URINE [id number] 11:56:00 Test Item Value Reference Range Comments CULTURE (BEAKER) (test jrdm=4263) No growth POCT-GLUCOSE [id number] 11:11:00 Test Item Value Reference Range Comments POC-GLUCOSE METER (BEAKER) 172 mg/dL 70-110 TESTED AT [address] (test ujou=9040) [place] [id number] POCT-GLUCOSE [id number] 09:54:00 Test Item Value Reference Range Comments POC-GLUCOSE METER (BEAKER) 196 mg/dL 70-110 TESTED AT [address] (test yflz=6779) [place] [address] LACTIC ACID, ARTERIAL, WHOLE [id number] 09:07:00 Test Item Value Reference Range Comments LACTATE BLOOD ARTERIAL (2) (BEAKER) (test 0.7 mmol/L 0.5-2.2 hbuv=2604) Effective 08/06/2015: Units/Reference Range ChangeNew: 0.5-2.2 mmol/L Previous: 5 -20 mg/[id number] 09:06:00 Test Item Value Reference Range Comments MAGNESIUM (BEAKER) (test ptno=186) 2.2 mg/dL 1.6-2.6 POCT-GLUCOSE [id number] 08:39:00 Test Item Value Reference Range Comments POC-GLUCOSE METER (BEAKER) 188 mg/dL 70-110 TESTED AT [address] (test gwkm=7567) [place] [address] POCT-GLUCOSE [id number] 08:37:00 Test Item Value Reference Range Comments POC-GLUCOSE METER (BEAKER) 195 mg/dL 70-110 TESTED AT [address] (test dcsq=3196) [place] [id number] BLOOD GAS, [id number] 06:46:00 Test Item Value Reference Range Comments PH ARTERIAL (BEAKER) (test dkxi=371) 7.47 7.35-7.45 PCO2 ARTERIAL (BEAKER) (test adqa=227) 44 mmHg 35-45 PO2 ARTERIAL (BEAKER) (test bhfw=996) 57 mmHg 80-90 O2 SATURATION ARTERIAL (BEAKER) (test qemf=924) 91.1 % 96.0-97.0 HCO3 ARTERIAL (BEAKER) (test emnw=686) 32 mmol/L 21-29 BASE EXCESS ARTERIAL (BEAKER) (test nipp=571) 7.1 mmol/L -2.0-3.0 PATIENT TEMPERATURE (BEAKER) (test gohe=4390) 37.0 C [id number] 06:14:00 Test Item Value Reference Range Comments RPR SCREEN (BEAKER) (test gzou=875) Nonreactive Nonreactive CALCIUM, [id number] 05:52:00 Test Item Value Reference Range Comments CALCIUM IONIZED (BEAKER) (test zudn=270) 1.13 mmol/L 1.12-1.27 PH, BLOOD (BEAKER) (test cseo=1054) 7.46 [id number] 05:42:00 Test Item Value Reference Range Comments PHOSPHORUS (BEAKER) (test hkuz=456) 2.2 mg/dL 2.3-4.7 [id number] 05:42:00 Test Item Value Reference Range Comments MAGNESIUM (BEAKER) (test jexm=528) 2.1 mg/dL 1.6-2.6 HEPATIC FUNCTION [id number] 05:42:00 Test Item Value Reference Range Comments TOTAL PROTEIN (BEAKER) (test xvmh=102) 6.2 gm/dL 6.0-8.3 ALBUMIN (BEAKER) (test sjxw=4187) 3.1 g/dL 3.5-5.0 BILIRUBIN TOTAL (BEAKER) (test utog=789) 1.4 mg/dL 0.2-1.2 BILIRUBIN DIRECT (BEAKER) (test zwqv=883) 0.7 mg/dL 0.1-0.5 ALKALINE PHOSPHATASE (BEAKER) (test vabf=579) 49 U/L 40-150 AST (SGOT) (BEAKER) (test qjah=858) 74 U/L 5-34 ALT (SGPT) (BEAKER) (test rvfi=125) 37 U/L 6-55 LACTATE DEHYDROGENASE (LDH)2017-07-22 05:42:00 Test Item Value Reference Range Comments LACTATE DEHYDROGENASE (BEAKER) (test fnqt=239) 1339 U/L 125-220 [id number] 05:40:00 Test Item Value Reference Range Comments PHOSPHORUS (BEAKER) (test ylpj=444) 2.2 mg/dL 2.3-4.7 BASIC METABOLIC [id number] 05:40:00 Test Item Value Reference Range Comments SODIUM (BEAKER) (test 144 meq/L 136-145 miro=678) POTASSIUM (BEAKER) (test 4.0 meq/L 3.5-5.1 zjrc=192) CHLORIDE (BEAKER) (test 107 meq/L 98-107 slyz=764) CO2 (BEAKER) (test 28 meq/L 22-29 rntm=412) BLOOD UREA NITROGEN 36 mg/dL 7-21 (BEAKER) (test etek=026) CREATININE (BEAKER) (test 1.79 mg/dL 0.57-1.25 fuqh=287) GLUCOSE RANDOM (BEAKER) 183 mg/dL 70-105 (test ajzd=893) CALCIUM (BEAKER) (test 8.9 mg/dL 8.4-10.2 qaqy=764) EGFR (BEAKER) (test 34 mL/min/1.73 sq m ESTIMATED GFR IS NOT kyfo=9889) ACCURATE CREATININE CLEARANCE IN PREDICTING GLOMERULAR FILTRATION RATE. ESTIMATED GFR IS NOT APPLICABLE FOR DIALYSIS PATIENTS. OXYGEN SATURATION, [id number] 05:29:00 Test Item Value Reference Range Comments O2 SATURATION (MEASURED) (BEAKER) (test esoo=2315) 54.7 % [id number] 05:29:00 Test Item Value Reference Range Comments PARTIAL THROMBOPLASTIN TIME (BEAKER) (test 70.7 seconds 22.5-36.0 pcdt=495) CBC W/PLT COUNT & AUTO [id number] 05:24:00 Test Item Value Reference Range Comments WHITE BLOOD CELL COUNT (BEAKER) (test zqft=760) 13.0 K/ L 3.5-10.5 RED BLOOD CELL COUNT (BEAKER) (test gfbs=635) 3.04 M/ L 3.93-5.22 HEMOGLOBIN (BEAKER) (test uyzo=487) 9.0 GM/DL 11.2-15.7 HEMATOCRIT (BEAKER) (test bkgl=827) 29.0 % 34.1-44.9 MEAN CORPUSCULAR VOLUME (BEAKER) (test imwf=811) 95.4 fL 79.4-94.8 MEAN CORPUSCULAR HEMOGLOBIN (BEAKER) (test 29.6 pg 25.6-32.2 rsxx=093) MEAN CORPUSCULAR HEMOGLOBIN CONC (BEAKER) (test 31.0 GM/DL 32.2-35.5 kkke=263) RED CELL DISTRIBUTION WIDTH (BEAKER) (test 15.5 % 11.7-14.4 ygjm=679) PLATELET COUNT (BEAKER) (test vfal=205) 132 K/CU MM 150-450 MEAN PLATELET VOLUME (BEAKER) (test pzff=273) 11.4 fL 9.4-12.3 NUCLEATED RED BLOOD CELLS (BEAKER) (test 0 /100 WBC 0-0 vvjj=795) NEUTROPHILS RELATIVE PERCENT (BEAKER) (test 80 % bpef=729) LYMPHOCYTES RELATIVE PERCENT (BEAKER) (test 10 % eutj=801) MONOCYTES RELATIVE PERCENT (BEAKER) (test 9 % nwgn=399) EOSINOPHILS RELATIVE PERCENT (BEAKER) (test 0 % xklt=548) BASOPHILS RELATIVE PERCENT (BEAKER) (test 0 % xsys=429) NEUTROPHILS ABSOLUTE COUNT (BEAKER) (test 10.44 K/ L 1.56-6.13 ubde=858) LYMPHOCYTES ABSOLUTE COUNT (BEAKER) (test 1.29 K/ L 1.18-3.74 dxdm=546) MONOCYTES ABSOLUTE COUNT (BEAKER) (test 1.12 K/ L 0.24-0.36 vicy=625) EOSINOPHILS ABSOLUTE COUNT (BEAKER) (test 0.01 K/ L 0.04-0.36 oycg=681) BASOPHILS ABSOLUTE COUNT (BEAKER) (test 0.04 K/ L 0.01-0.08 spkl=083) IMMATURE GRANULOCYTES-RELATIVE PERCENT (BEAKER) 1 % 0-1 (test kxya=3599) RAD, CHEST, 1 VIEW, NON [id number] 04:45:00Reason for exam:->respiratory insufficiencyFINAL REPORT CLINICAL INDICATION: Respiratory insufficiency Comparison: 07/21/2017 The cardiomediastinal contours are stable. The left hemidiaphragm is slightly elevated. Centralpulmonary vascular congestion and bilateral parenchymal opacities are unchanged. There is no pneumothorax. A femoral Impella device remains in place. Signed: Adelso Sorensenort Verified Date/Time:07/22/2017 04:45:12 Reading Location: [address] Reading Room POCT-GLUCOSE [id number] 03:01:00 Test Item Value Reference Range Comments POC-GLUCOSE METER (BEAKER) 115 mg/dL 70-110 TESTED AT [address] (test yrry=3144) [facility] [address] POCT-GLUCOSE [id number] 00:14:00 Test Item Value Reference Range Comments POC-GLUCOSE METER (BEAKER) 137 mg/dL 70-110 TESTED AT [address] (test knrl=4923) [place] [id number] 00:09:00 Test Item Value Reference Range Comments POTASSIUM (BEAKER) (test lkmp=252) 3.8 meq/L 3.5-5.1 PRN - repeat glucose levels every 1 hour or as specified by insulin titration orders until glucose level is less than 450 mg/dLCheck Serum Potassium level 2 hours after oral potassium replacement completed or 30 min after intravenous potassium replacement.[id number] 00:09:00 Test Item Value Reference Range Comments MAGNESIUM (BEAKER) (test dnpj=522) 2.5 mg/dL 1.6-2.6 PRN - repeat glucose levels every 1 hour or as specified by insulin titration orders until glucose level is less than 450 mg/dLCheck Serum Potassium level 2 hours after oral potassium replacement completed or 30 min after intravenous potassium replacement.[id number] 00:09:00 Test Item Value Reference Range Comments PHOSPHORUS (BEAKER) (test bdvj=260) 1.9 mg/dL 2.3-4.7 PRN - repeat glucose levels every 1 hour or as specified by insulin titration orders until glucose level is less than 450 mg/dLCheck Serum Potassium level 2 hours after oral potassium replacement completed or 30 min after intravenous potassium replacement.[id number] 00:09:00 Test Item Value Reference Range Comments GLUCOSE RANDOM (BEAKER) (test fmbs=471) 155 mg/dL 70-105 PRN - repeat glucose levels every 1 hour or as specified by insulin titration orders until glucose level is less than 450 mg/dLCheck Serum Potassium level 2 hours after oral potassium replacement completed or 30 min after intravenous potassium replacement.BASIC METABOLIC [id number] 00:09:00 Test Item Value Reference Range Comments SODIUM (BEAKER) (test 142 meq/L 136-145 whtj=728) POTASSIUM (BEAKER) (test 3.8 meq/L 3.5-5.1 ppdr=543) CHLORIDE (BEAKER) (test 105 meq/L 98-107 tvip=754) CO2 (BEAKER) (test 30 meq/L 22-29 koog=173) BLOOD UREA NITROGEN 37 mg/dL 7-21 (BEAKER) (test hnna=741) CREATININE (BEAKER) (test 1.80 mg/dL 0.57-1.25 sjfp=642) GLUCOSE RANDOM (BEAKER) 155 mg/dL 70-105 (test ehnb=313) CALCIUM (BEAKER) (test 8.8 mg/dL 8.4-10.2 dddd=046) EGFR (BEAKER) (test 34 mL/min/1.73 sq m ESTIMATED GFR IS NOT njli=6400) ACCURATE CREATININE CLEARANCE IN PREDICTING GLOMERULAR FILTRATION RATE. ESTIMATED GFR IS NOT APPLICABLE FOR DIALYSIS PATIENTS. PRN - repeat glucose levels every 1 hour or as specified by insulin titration orders until glucose level is less than 450 mg/dLCheck Serum Potassium level 2 hours after oral potassium replacement completed or 30 min after intravenous potassium replacement.[id number] 00:06:00 Test Item Value Reference Range Comments PARTIAL THROMBOPLASTIN TIME (BEAKER) (test 62.0 seconds 22.5-36.0 tmwb=676) BLOOD GAS, [id number] 20:39:00 Test Item Value Reference Range Comments PH ARTERIAL (BEAKER) (test eosh=871) 7.45 7.35-7.45 PCO2 ARTERIAL (BEAKER) (test acwc=148) 46 mmHg 35-45 PO2 ARTERIAL (BEAKER) (test idfk=043) 64 mmHg 80-90 O2 SATURATION ARTERIAL (BEAKER) (test mnik=425) 92.0 % 96.0-97.0 HCO3 ARTERIAL (BEAKER) (test zxkg=436) 31 mmol/L 21-29 BASE EXCESS ARTERIAL (BEAKER) (test tclv=253) 6.7 mmol/L -2.0-3.0 PATIENT TEMPERATURE (BEAKER) (test xkse=0363) 38.1 C FIO2 (BEAKER) (test ufof=8198) 80.0 % POTASSIUM-STAT [id number] 20:39:00 Test Item Value Reference Range Comments POTASSIUM (BEAKER) (test mcmm=838) 3.4 meq/L 3.6-5.5 [id number] 20:16:00 Test Item Value Reference Range Comments FERRITIN (BEAKER) (test rwvu=705) 651 ng/mL 5-275 POCT-GLUCOSE [id number] 20:10:00 Test Item Value Reference Range Comments POC-GLUCOSE METER (BEAKER) 180 mg/dL 70-110 TESTED AT [facility] [address] [facility] (test nuyr=9498) [facility] [address] POCT-GLUCOSE [id number] 20:10:00 Test Item Value Reference Range Comments POC-GLUCOSE METER (BEAKER) 197 mg/dL 70-110 TESTED AT [facility] [address] [facility] (test itxs=2444) [facility] [address] [id number] 19:54:00 Test Item Value Reference Range Comments PARTIAL THROMBOPLASTIN TIME (BEAKER) (test 62.4 seconds 22.5-36.0 vcos=058) [id number] 19:53:00 Test Item Value Reference Range Comments MAGNESIUM (BEAKER) (test itqe=100) 2.2 mg/dL 1.6-2.6 HEPATITIS A ANTIBODY, [id number] 19:25:00 Test Item Value Reference Range Comments HEPATITIS A IGG ANTIBODY (BEAKER) (test zcih=1360) Reactive Nonreactive GLUCOSE-STAT [id number] 19:24:00 Test Item Value Reference Range Comments GLUCOSE RANDOM (BEAKER) (test qsvg=696) 174 mg/dL 70-110 HGB/HCT (H&H) - STAT [id number] 19:24:00 Test Item Value Reference Range Comments HEMOGLOBIN (BEAKER) (test owur=462) 10.1 g/dL 12.0-15.0 HEMATOCRIT (BEAKER) (test ujwi=829) 30.0 % 36.0-45.0 POTASSIUM-STAT [id number] 19:24:00 Test Item Value Reference Range Comments POTASSIUM (BEAKER) (test sorp=601) 3.4 meq/L 3.6-5.5 HEPATITIS B CORE ANTIBODY, [id number] 19:21:00 Test Item Value Reference Range Comments HEPATITIS B CORE TOTAL ANTIBODY (BEAKER) (test Nonreactive Nonreactive bscw=221) HEPATITIS PANEL, [id number] 19:21:00 Test Item Value Reference Range Comments HEPATITIS A IGM ANTIBODY (BEAKER) (test Nonreactive Nonreactive pxin=401) HEPATITIS B CORE IGM ANTIBODY (BEAKER) (test Nonreactive Nonreactive ljwl=084) HEPATITIS C ANTIBODY (BEAKER) (test xicj=853) Nonreactive Nonreactive HEPATITIS B SURFACE ANTIGEN (2) (BEAKER) (test Nonreactive Nonreactive fghr=4987) HIV-1 ANTIGEN WITH HIV-1/2 [id number] 19:21:00 Test Item Value Reference Range Comments HIV-1 ANTIGEN WITH HIV 1\T\2 ANTIBODY (2) Nonreactive Nonreactive (BEAKER) (test ljiw=9089) BASIC METABOLIC [id number] 18:05:00 Test Item Value Reference Range Comments SODIUM (BEAKER) (test 141 meq/L 136-145 hgvg=707) POTASSIUM (BEAKER) (test 4.0 meq/L 3.5-5.1 vwik=026) CHLORIDE (BEAKER) (test 104 meq/L 98-107 powa=070) CO2 (BEAKER) (test 26 meq/L 22-29 yixd=602) BLOOD UREA NITROGEN 41 mg/dL 7-21 (BEAKER) (test tjaz=269) CREATININE (BEAKER) (test 2.07 mg/dL 0.57-1.25 sxtj=007) GLUCOSE RANDOM (BEAKER) 242 mg/dL 70-105 (test ethv=139) CALCIUM (BEAKER) (test 8.9 mg/dL 8.4-10.2 uogs=097) EGFR (BEAKER) (test 29 mL/min/1.73 sq m ESTIMATED GFR IS NOT xnfc=9590) ACCURATE CREATININE CLEARANCE IN PREDICTING GLOMERULAR FILTRATION RATE. ESTIMATED GFR IS NOT APPLICABLE FOR DIALYSIS PATIENTS. Check Serum Potassium level 2 hours after oral potassium replacement completed or 30 min after intravenous potassium replacement.[id number] 18:02:00 Test Item Value Reference Range Comments POTASSIUM (BEAKER) (test ktwj=035) 4.0 meq/L 3.5-5.1 Check Serum Potassium level 2 hours after oral potassium replacement completed or 30 min after intravenous potassium replacement.[id number] 18:02:00 Test Item Value Reference Range Comments MAGNESIUM (BEAKER) (test canm=566) 2.2 mg/dL 1.6-2.6 Check Serum Potassium level 2 hours after oral potassium replacement completed or 30 min after intravenous potassium replacement.[id number] 18:02:00 Test Item Value Reference Range Comments PHOSPHORUS (BEAKER) (test dwot=802) 2.1 mg/dL 2.3-4.7 Check Serum Potassium level 2 hours after oral potassium replacement completed or 30 min after intravenous potassium replacement.POCT-GLUCOSE [id number] 17:31:00 Test Item Value Reference Range Comments POC-GLUCOSE METER (BEAKER) 253 mg/dL 70-110 TESTED AT [address] (test qrlb=2830) [place] [address] VITAMIN D, [id number] 17:31:00 Test Item Value Reference Range Comments VITAMIN D 25-OH (BEAKER) (test bdsr=3880) 5.8 ng/mL 6.6-49.9 Effective 01/12/2017: Reference Range ChangeNew: 6.6-49.9 ng/mL Previous: 13.0 -47.8 ng/mLRecommended Vitamin D Target Range: 30.0-40.0 ng/mLPOCT-GLUCOSE [id number] 17:31:00 Test Item Value Reference Range Comments POC-GLUCOSE METER (BEAKER) 269 mg/dL 70-110 TESTED AT [address] (test cqmz=8628) [place] [address] [id number] 17:09:00 Test Item Value Reference Range Comments TRANSFERRIN (BEAKER) (test ubvx=950) 166 mg/dL 174-382 [id number] 17:09:00 Test Item Value Reference Range Comments PREALBUMIN (BEAKER) (test kjzh=001) 14 mg/dL 14-45 IRON, [id number] 17:09:00 Test Item Value Reference Range Comments IRON (BEAKER) (test qfls=451) 57 ug/dL 40-160 TROPONIN [id number] 16:59:00 Test Item Value Reference Range Comments TROPONIN I (BEAKER) (test xtks=165) 45.70 ng/mL 0.00-0.03 Troponin I (TnI) levels [...] failure, acidosis, acute neurological disease, and persistent tachyarrhythmia.[id number] 16:49:00 Test Item Value Reference Range Comments CREATININE (BEAKER) (test 2.17 mg/dL 0.57-1.25 pvtl=960) EGFR (BEAKER) (test 27 mL/min/1.73 sq m ESTIMATED GFR IS NOT jnox=9136) ACCURATE CREATININE CLEARANCE IN PREDICTING GLOMERULAR FILTRATION RATE. ESTIMATED GFR IS NOT APPLICABLE FOR DIALYSIS PATIENTS. URIC [id number] 16:48:00 Test Item Value Reference Range Comments URIC ACID (BEAKER) (test ttpn=894) 8.2 mg/dL 2.6-7.2 LIPID [id number] 16:48:00 Test Item Value Reference Range Comments TRIGLYCERIDES (BEAKER) (test wwzf=859) 122 mg/dL CHOLESTEROL (BEAKER) (test pwph=608) 204 mg/dL HDL CHOLESTEROL (BEAKER) (test kbcl=003) 85 mg/dL LDL CHOLESTEROL CALCULATED (BEAKER) (test 95 mg/dL upaw=134) Triglyceride Reference Range: Low Risk <150 Borderline 150- 199 High Risk 200-499 Very High Risk >=500Cholesterol Reference Range: Low Risk <200 Borderline 200-239 High Risk > 240HDL Cholesterol Reference Range: Low Risk >=60 High Risk <40LDL Cholesterol Reference Range: Optimal <100 Near Optimal 100-129 Borderline 130-159 High 160-189 Very High >=[id number] 16:48:00 Test Item Value Reference Range Comments AMYLASE (BEAKER) (test beql=095) 228 U/L 25-125 GAMMA GLUTAMYL TRANSFERASE (GGT)2017-07-21 16:48:00 Test Item Value Reference Range Comments GAMMA GLUTAMYL TRANSFERASE (BEAKER) (test ckns=019) 52 U/L 9-64 RETICULOCYTE [id number] 16:39:00 Test Item Value Reference Range Comments RETICULOCYTE COUNT PCT (BEAKER) (test koyf=111) 3.8 % 0.5-1.7 TROPONIN [id number] 13:49:00 Test Item Value Reference Range Comments TROPONIN I (BEAKER) (test luex=283) 43.19 ng/mL 0.00-0.03 Troponin I (TnI) levels [...] acute neurological disease, and persistent tachyarrhythmia.BASIC METABOLIC [id number] 12:22:00 Test Item Value Reference Range Comments SODIUM (BEAKER) (test 141 meq/L 136-145 tgib=520) POTASSIUM (BEAKER) (test 3.9 meq/L 3.5-5.1 knkd=777) CHLORIDE (BEAKER) (test 102 meq/L 98-107 ygru=717) CO2 (BEAKER) (test 28 meq/L 22-29 jmxi=888) BLOOD UREA NITROGEN 40 mg/dL 7-21 (BEAKER) (test jhdm=489) CREATININE (BEAKER) (test 2.20 mg/dL 0.57-1.25 jgqn=530) GLUCOSE RANDOM (BEAKER) 238 mg/dL 70-105 (test dssg=821) CALCIUM (BEAKER) (test 8.9 mg/dL 8.4-10.2 dfgk=334) EGFR (BEAKER) (test 27 mL/min/1.73 sq m ESTIMATED GFR IS NOT gtyt=6351) ACCURATE CREATININE CLEARANCE IN PREDICTING GLOMERULAR FILTRATION RATE. ESTIMATED GFR IS NOT APPLICABLE FOR DIALYSIS PATIENTS. [id number] 12:17:00 Test Item Value Reference Range Comments POTASSIUM (BEAKER) (test mclc=183) 3.9 meq/L 3.5-5.1 [id number] 12:17:00 Test Item Value Reference Range Comments MAGNESIUM (BEAKER) (test lxih=887) 2.4 mg/dL 1.6-2.6 [id number] 12:17:00 Test Item Value Reference Range Comments PHOSPHORUS (BEAKER) (test aeyk=293) 3.7 mg/dL 2.3-4.7 [id number] 12:17:00 Test Item Value Reference Range Comments GLUCOSE RANDOM (BEAKER) (test kbri=583) 238 mg/dL 70-105 [id number] 12:04:00 Test Item Value Reference Range Comments PARTIAL THROMBOPLASTIN TIME (BEAKER) (test 59.3 seconds 22.5-36.0 htxi=017) SPUTUM CULTURE + GRAM [id number] 11:47:00 Test Item Value Reference Range Comments CULTURE (BEAKER) (test <1+ Normal respiratory pascual wqjh=2835) present GRAM STAIN RESULT (BEAKER) 1+ WBCs (test rtlu=6142) GRAM STAIN RESULT (BEAKER) 0-5 epithelial cells (test dzwl=01378) GRAM STAIN RESULT (BEAKER) No organisms seen (test jwhq=57961) HEMOGLOBIN AND [id number] 11:26:00 Test Item Value Reference Range Comments HEMOGLOBIN (BEAKER) (test fugr=690) 7.9 GM/DL 11.2-15.7 HEMATOCRIT (BEAKER) (test xokf=565) 26.5 % 34.1-44.9 BLOOD GAS, [id number] 10:43:00 Test Item Value Reference Range Comments PH ARTERIAL (BEAKER) (test lxwi=860) 7.42 7.35-7.45 PCO2 ARTERIAL (BEAKER) (test jkln=109) 44 mmHg 35-45 PO2 ARTERIAL (BEAKER) (test curf=820) 51 mmHg 80-90 O2 SATURATION ARTERIAL (BEAKER) (test nzvu=480) 88.2 % 96.0-97.0 HCO3 ARTERIAL (BEAKER) (test llfj=144) 28 mmol/L 21-29 BASE EXCESS ARTERIAL (BEAKER) (test nrmd=636) 3.2 mmol/L -2.0-3.0 PATIENT TEMPERATURE (BEAKER) (test fbzr=8102) 36.0 C FIO2 (BEAKER) (test meps=2569) 80.0 % URINE [id number] 09:44:00 Test Item Value Reference Range Comments CULTURE (BEAKER) (test odxd=5661) No growth BASIC METABOLIC [id number] 06:28:00 Test Item Value Reference Range Comments SODIUM (BEAKER) (test 141 meq/L 136-145 vcnc=954) POTASSIUM (BEAKER) (test 4.1 meq/L 3.5-5.1 jeda=168) CHLORIDE (BEAKER) (test 101 meq/L 98-107 icde=557) CO2 (BEAKER) (test 29 meq/L 22-29 hpli=752) BLOOD UREA NITROGEN 40 mg/dL 7-21 (BEAKER) (test jydr=588) CREATININE (BEAKER) (test 2.46 mg/dL 0.57-1.25 zrog=335) GLUCOSE RANDOM (BEAKER) 236 mg/dL 70-105 (test ntdm=924) CALCIUM (BEAKER) (test 8.6 mg/dL 8.4-10.2 fgqq=090) EGFR (BEAKER) (test 24 mL/min/1.73 sq m ESTIMATED GFR IS NOT wrls=8200) ACCURATE CREATININE CLEARANCE IN PREDICTING GLOMERULAR FILTRATION RATE. ESTIMATED GFR IS NOT APPLICABLE FOR DIALYSIS PATIENTS. [id number] 06:26:00 Test Item Value Reference Range Comments PHOSPHORUS (BEAKER) (test tjuv=497) 4.6 mg/dL 2.3-4.7 POCT-GLUCOSE [id number] 06:05:00 Test Item Value Reference Range Comments POC-GLUCOSE METER (BEAKER) 278 mg/dL 70-110 TESTED AT [address] (test mwwm=0206) [place] [id number] POCT-GLUCOSE [id number] 06:05:00 Test Item Value Reference Range Comments POC-GLUCOSE METER (BEAKER) 231 mg/dL 70-110 TESTED AT [address] (test wisc=7717) [place] [id number] POCT-GLUCOSE [id number] 06:05:00 Test Item Value Reference Range Comments POC-GLUCOSE METER (BEAKER) 190 mg/dL 70-110 TESTED AT [address] (test oqsg=3729) [place] [address] [id number] 05:56:00 Test Item Value Reference Range Comments PARTIAL THROMBOPLASTIN TIME (BEAKER) (test 72.5 seconds 22.5-36.0 qtop=862) RAD, CHEST, 1 VIEW, NON [id number] 04:38:00Reason for exam:->respiratory insufficiencyFINAL REPORT CLINICAL INDICATION: Respiratory insufficiency Comparison: 07/20/2017 The cardiomediastinal contours are stable. Central pulmonary vascular prominence and bilateral parenchymal opacities are similar within variation of acquisition technique. There is no pneumothorax. A femoral Impella device is stable in position. Signed: Adelso Sorensen MDReport Verified Date/Time:07/21/2017 04:38:32 Reading Location: [address] Reading Room BASIC METABOLIC [id number] 04:06:00 Test Item Value Reference Range Comments SODIUM (BEAKER) (test 142 meq/L 136-145 irca=663) POTASSIUM (BEAKER) (test 3.9 meq/L 3.5-5.1 suxj=683) CHLORIDE (BEAKER) (test 102 meq/L 98-107 xeeo=741) CO2 (BEAKER) (test 31 meq/L 22-29 ngvc=010) BLOOD UREA NITROGEN 40 mg/dL 7-21 (BEAKER) (test ljmf=822) CREATININE (BEAKER) (test 2.37 mg/dL 0.57-1.25 hfzh=893) GLUCOSE RANDOM (BEAKER) 206 mg/dL 70-105 (test yigz=337) CALCIUM (BEAKER) (test 8.5 mg/dL 8.4-10.2 rglt=781) EGFR (BEAKER) (test 25 mL/min/1.73 sq m ESTIMATED GFR IS NOT mqio=6951) ACCURATE CREATININE CLEARANCE IN PREDICTING GLOMERULAR FILTRATION RATE. ESTIMATED GFR IS NOT APPLICABLE FOR DIALYSIS PATIENTS. BLOOD GAS, [id number] 03:53:00 Test Item Value Reference Range Comments PH ARTERIAL (BEAKER) (test gqpp=159) 7.36 7.35-7.45 PCO2 ARTERIAL (BEAKER) (test yjna=817) 55 mmHg 35-45 PO2 ARTERIAL (BEAKER) (test ubdr=192) 94 mmHg 80-90 O2 SATURATION ARTERIAL (BEAKER) (test cwyz=238) 96.0 % 96.0-97.0 HCO3 ARTERIAL (BEAKER) (test rdbp=865) 30 mmol/L 21-29 BASE EXCESS ARTERIAL (BEAKER) (test vjkv=648) 4.2 mmol/L -2.0-3.0 PATIENT TEMPERATURE (BEAKER) (test wocb=6853) 38.8 C FIO2 (BEAKER) (test bakz=1455) 80.0 % CALCIUM, [id number] 03:51:00 Test Item Value Reference Range Comments CALCIUM IONIZED (BEAKER) (test cxup=272) 1.07 mmol/L 1.12-1.27 PH, BLOOD (BEAKER) (test xzxr=6687) 7.35 OXYGEN SATURATION, [id number] 03:50:00 Test Item Value Reference Range Comments O2 SATURATION (MEASURED) (BEAKER) (test feir=5674) 72.6 % [id number] 03:47:00 Test Item Value Reference Range Comments PHOSPHORUS (BEAKER) (test kzny=411) 4.5 mg/dL 2.3-4.7 [id number] 03:47:00 Test Item Value Reference Range Comments MAGNESIUM (BEAKER) (test lhey=914) 2.1 mg/dL 1.6-2.6 HEPATIC FUNCTION [id number] 03:47:00 Test Item Value Reference Range Comments TOTAL PROTEIN (BEAKER) (test ddxg=895) 6.1 gm/dL 6.0-8.3 ALBUMIN (BEAKER) (test zlxe=0668) 3.1 g/dL 3.5-5.0 BILIRUBIN TOTAL (BEAKER) (test uyhw=782) 1.4 mg/dL 0.2-1.2 BILIRUBIN DIRECT (BEAKER) (test jpjl=096) 0.6 mg/dL 0.1-0.5 ALKALINE PHOSPHATASE (BEAKER) (test vhdl=311) 45 U/L 40-150 AST (SGOT) (BEAKER) (test ergy=897) 94 U/L 5-34 ALT (SGPT) (BEAKER) (test vmsl=290) 48 U/L 6-55 LACTATE DEHYDROGENASE (LDH)2017-07-21 03:47:00 Test Item Value Reference Range Comments LACTATE DEHYDROGENASE (BEAKER) (test cesx=370) 1470 U/L 125-220 CBC W/PLT COUNT & AUTO [id number] 03:41:00 Test Item Value Reference Range Comments WHITE BLOOD CELL COUNT (BEAKER) (test cqbd=564) 14.1 K/ L 3.5-10.5 RED BLOOD CELL COUNT (BEAKER) (test yaed=104) 2.81 M/ L 3.93-5.22 HEMOGLOBIN (BEAKER) (test rxlm=177) 8.6 GM/DL 11.2-15.7 HEMATOCRIT (BEAKER) (test emrs=284) 28.2 % 34.1-44.9 MEAN CORPUSCULAR VOLUME (BEAKER) (test hxhw=008) 100.4 fL 79.4-94.8 MEAN CORPUSCULAR HEMOGLOBIN (BEAKER) (test 30.6 pg 25.6-32.2 lwkh=700) MEAN CORPUSCULAR HEMOGLOBIN CONC (BEAKER) (test 30.5 GM/DL 32.2-35.5 idms=702) RED CELL DISTRIBUTION WIDTH (BEAKER) (test 13.1 % 11.7-14.4 ddwu=180) PLATELET COUNT (BEAKER) (test wowy=888) 140 K/CU MM 150-450 MEAN PLATELET VOLUME (BEAKER) (test ijdb=239) 11.1 fL 9.4-12.3 NUCLEATED RED BLOOD CELLS (BEAKER) (test 0 /100 WBC 0-0 wmao=834) NEUTROPHILS RELATIVE PERCENT (BEAKER) (test 86 % gycr=680) LYMPHOCYTES RELATIVE PERCENT (BEAKER) (test 6 % qqlb=766) MONOCYTES RELATIVE PERCENT (BEAKER) (test 8 % dgpc=979) EOSINOPHILS RELATIVE PERCENT (BEAKER) (test 0 % drym=932) BASOPHILS RELATIVE PERCENT (BEAKER) (test 0 % fean=264) NEUTROPHILS ABSOLUTE COUNT (BEAKER) (test 12.13 K/ L 1.56-6.13 daqs=390) LYMPHOCYTES ABSOLUTE COUNT (BEAKER) (test 0.81 K/ L 1.18-3.74 ngkw=254) MONOCYTES ABSOLUTE COUNT (BEAKER) (test 1.07 K/ L 0.24-0.36 yivq=859) EOSINOPHILS ABSOLUTE COUNT (BEAKER) (test 0.00 K/ L 0.04-0.36 entw=885) BASOPHILS ABSOLUTE COUNT (BEAKER) (test 0.02 K/ L 0.01-0.08 rylp=089) IMMATURE GRANULOCYTES-RELATIVE PERCENT (BEAKER) 1 % 0-1 (test emci=2454) LACTIC ACID, ARTERIAL, WHOLE [id number] 03:39:00 Test Item Value Reference Range Comments LACTATE BLOOD ARTERIAL (2) (BEAKER) (test 0.9 mmol/L 0.5-2.2 ieyt=2338) Effective 08/06/2015: Units/Reference Range ChangeNew: 0.5-2.2 mmol/L Previous: 5 -20 mg/dLTROPONIN [id number] 00:12:00 Test Item Value Reference Range Comments TROPONIN I (BEAKER) (test usco=628) 60.74 ng/mL 0.00-0.03 Troponin I (TnI) levels [...] failure, acidosis, acute neurological disease, and persistent tachyarrhythmia.[id number] 23:42:00 Test Item Value Reference Range Comments PHOSPHORUS (BEAKER) (test baen=803) 4.9 mg/dL 2.3-4.7 BASIC METABOLIC [id number] 23:42:00 Test Item Value Reference Range Comments SODIUM (BEAKER) (test 141 meq/L 136-145 grvn=106) POTASSIUM (BEAKER) (test 4.2 meq/L 3.5-5.1 qjlx=009) CHLORIDE (BEAKER) (test 102 meq/L 98-107 jdzd=019) CO2 (BEAKER) (test 29 meq/L 22-29 dwqc=523) BLOOD UREA NITROGEN 40 mg/dL 7-21 (BEAKER) (test ssxc=570) CREATININE (BEAKER) (test 2.36 mg/dL 0.57-1.25 zoom=237) GLUCOSE RANDOM (BEAKER) 200 mg/dL 70-105 (test alfm=065) CALCIUM (BEAKER) (test 8.4 mg/dL 8.4-10.2 vmqu=586) EGFR (BEAKER) (test 25 mL/min/1.73 sq m ESTIMATED GFR IS NOT gxpr=8600) ACCURATE CREATININE CLEARANCE IN PREDICTING GLOMERULAR FILTRATION RATE. ESTIMATED GFR IS NOT APPLICABLE FOR DIALYSIS PATIENTS. [id number] 23:39:00 Test Item Value Reference Range Comments PARTIAL THROMBOPLASTIN TIME (BEAKER) (test 78.1 seconds 22.5-36.0 opgz=157) POCT-GLUCOSE [id number] 23:28:00 Test Item Value Reference Range Comments POC-GLUCOSE METER (BEAKER) 250 mg/dL 70-110 TESTED AT [facility] [address] [facility] (test znns=5021) [facility] [address] POCT-GLUCOSE [id number] 22:19:00 Test Item Value Reference Range Comments POC-GLUCOSE METER (BEAKER) 202 mg/dL 70-110 TESTED AT [address] (test jowc=4385) [facility] [address] HEPATIC FUNCTION [id number] 21:45:00 Test Item Value Reference Range Comments TOTAL PROTEIN (BEAKER) (test syew=704) 5.9 gm/dL 6.0-8.3 ALBUMIN (BEAKER) (test dqkc=6595) 3.1 g/dL 3.5-5.0 BILIRUBIN TOTAL (BEAKER) (test llbz=555) 1.0 mg/dL 0.2-1.2 BILIRUBIN DIRECT (BEAKER) (test vtqy=925) 0.5 mg/dL 0.1-0.5 ALKALINE PHOSPHATASE (BEAKER) (test gmed=167) 46 U/L 40-150 AST (SGOT) (BEAKER) (test tipy=010) 95 U/L 5-34 ALT (SGPT) (BEAKER) (test ellt=331) 47 U/L 6-55 BASIC METABOLIC [id number] 21:45:00 Test Item Value Reference Range Comments SODIUM (BEAKER) (test 141 meq/L 136-145 fbyp=681) POTASSIUM (BEAKER) (test 4.0 meq/L 3.5-5.1 hjpp=923) CHLORIDE (BEAKER) (test 103 meq/L 98-107 jdsf=851) CO2 (BEAKER) (test 27 meq/L 22-29 peks=890) BLOOD UREA NITROGEN 40 mg/dL 7-21 (BEAKER) (test egph=612) CREATININE (BEAKER) (test 2.30 mg/dL 0.57-1.25 mabt=948) GLUCOSE RANDOM (BEAKER) 192 mg/dL 70-105 (test zsmk=213) CALCIUM (BEAKER) (test 8.4 mg/dL 8.4-10.2 hblm=749) EGFR (BEAKER) (test 25 mL/min/1.73 sq m ESTIMATED GFR IS NOT flfn=6821) ACCURATE CREATININE CLEARANCE IN PREDICTING GLOMERULAR FILTRATION RATE. ESTIMATED GFR IS NOT APPLICABLE FOR DIALYSIS PATIENTS. [id number] 21:38:00 Test Item Value Reference Range Comments MAGNESIUM (BEAKER) (test cafi=025) 2.1 mg/dL 1.6-2.6 LACTIC ACID, ARTERIAL, WHOLE [id number] 21:32:00 Test Item Value Reference Range Comments LACTATE BLOOD ARTERIAL (2) (BEAKER) (test 0.6 mmol/L 0.5-2.2 zxsu=5171) Effective 08/06/2015: Units/Reference Range ChangeNew: 0.5-2.2 mmol/L Previous: 5 -20 mg/dLPOCT-GLUCOSE [id number] 21:21:00 Test Item Value Reference Range Comments POC-GLUCOSE METER (BEAKER) 198 mg/dL 70-110 TESTED AT [address] (test pcan=5780) [facility] [address] POCT-GLUCOSE [id number] 21:21:00 Test Item Value Reference Range Comments POC-GLUCOSE METER (BEAKER) 155 mg/dL 70-110 TESTED AT [address] (test ytyv=3427) [facility] [address] POCT-GLUCOSE [id number] 21:21:00 Test Item Value Reference Range Comments POC-GLUCOSE METER (BEAKER) 67 mg/dL 70-110 TESTED AT [address] (test vowi=2982) [facility] [address] BLOOD GAS, [id number] 21:16:00 Test Item Value Reference Range Comments PH ARTERIAL (BEAKER) (test pwph=110) 7.34 7.35-7.45 PCO2 ARTERIAL (BEAKER) (test vhoj=293) 56 mmHg 35-45 PO2 ARTERIAL (BEAKER) (test rsgx=574) 107 mmHg 80-90 O2 SATURATION ARTERIAL (BEAKER) (test ajep=570) 97.3 % 96.0-97.0 HCO3 ARTERIAL (BEAKER) (test gtfl=617) 29 mmol/L 21-29 BASE EXCESS ARTERIAL (BEAKER) (test jgsz=703) 2.7 mmol/L -2.0-3.0 PATIENT TEMPERATURE (BEAKER) (test gkge=3743) 37.8 C FIO2 (BEAKER) (test mtka=1549) 100.0 % GLUCOSE-STAT [id number] 21:16:00 Test Item Value Reference Range Comments GLUCOSE RANDOM (BEAKER) (test mwye=198) 188 mg/dL 70-110 HGB/HCT (H&H) - STAT [id number] 21:16:00 Test Item Value Reference Range Comments HEMOGLOBIN (BEAKER) (test enyh=875) 9.9 g/dL 12.0-15.0 HEMATOCRIT (BEAKER) (test rqml=687) 29.0 % 36.0-45.0 SODIUM NA-STAT [id number] 21:15:00 Test Item Value Reference Range Comments SODIUM (BEAKER) (test pvbw=932) 140 meq/L 135-148 POTASSIUM-STAT [id number] 21:15:00 Test Item Value Reference Range Comments POTASSIUM (BEAKER) (test gjls=020) 3.9 meq/L 3.6-5.5 BLOOD GAS, [id number] 19:44:00 Test Item Value Reference Range Comments PH ARTERIAL (BEAKER) (test wyae=203) 7.34 7.35-7.45 PCO2 ARTERIAL (BEAKER) (test vbgb=710) 31 mmHg 35-45 PO2 ARTERIAL (BEAKER) (test wtor=379) 68 mmHg 80-90 O2 SATURATION ARTERIAL (BEAKER) (test tcyi=684) 92.1 % 96.0-97.0 HCO3 ARTERIAL (BEAKER) (test fgnh=580) 16 mmol/L 21-29 BASE EXCESS ARTERIAL (BEAKER) (test galt=576) -8.7 mmol/L -2.0-3.0 PATIENT TEMPERATURE (BEAKER) (test xxhl=5804) 37.7 C FIO2 (BEAKER) (test zntp=3773) 50.0 % POCT-GLUCOSE [id number] 18:30:00 Test Item Value Reference Range Comments POC-GLUCOSE METER (BEAKER) 90 mg/dL 70-110 TESTED AT [facility] [address] [facility] (test rwma=9733) [place] [address] TROPONIN [id number] 18:05:00 Test Item Value Reference Range Comments TROPONIN I (BEAKER) (test ukbi=720) 76.69 ng/mL 0.00-0.03 Troponin I (TnI) levels [...] acute neurological disease, and persistent tachyarrhythmia.BASIC METABOLIC [id number] 17:56:00 Test Item Value Reference Range Comments SODIUM (BEAKER) (test 143 meq/L 136-145 wrcs=394) POTASSIUM (BEAKER) (test 3.8 meq/L 3.5-5.1 gacn=663) CHLORIDE (BEAKER) (test 104 meq/L 98-107 rxbl=507) CO2 (BEAKER) (test 29 meq/L 22-29 zxer=052) BLOOD UREA NITROGEN 37 mg/dL 7-21 (BEAKER) (test sbuv=091) CREATININE (BEAKER) (test 2.45 mg/dL 0.57-1.25 bssm=342) GLUCOSE RANDOM (BEAKER) 107 mg/dL 70-105 (test ltuw=564) CALCIUM (BEAKER) (test 8.6 mg/dL 8.4-10.2 ijlc=462) EGFR (BEAKER) (test 24 mL/min/1.73 sq m ESTIMATED GFR IS NOT wqgh=3373) ACCURATE CREATININE CLEARANCE IN PREDICTING GLOMERULAR FILTRATION RATE. ESTIMATED GFR IS NOT APPLICABLE FOR DIALYSIS PATIENTS. [id number] 17:43:00 Test Item Value Reference Range Comments PHOSPHORUS (BEAKER) (test kquy=471) 4.8 mg/dL 2.3-4.7 [id number] 17:43:00 Test Item Value Reference Range Comments MAGNESIUM (BEAKER) (test unvg=356) 2.4 mg/dL 1.6-2.6 [id number] 17:34:00 Test Item Value Reference Range Comments PARTIAL THROMBOPLASTIN TIME (BEAKER) (test 101.4 seconds 22.5-36.0 erpx=510) BLOOD GAS, [id number] 17:23:00 Test Item Value Reference Range Comments PH ARTERIAL (BEAKER) (test wxqe=285) 7.36 7.35-7.45 PCO2 ARTERIAL (BEAKER) (test yzik=291) 60 mmHg 35-45 PO2 ARTERIAL (BEAKER) (test bvui=429) 82 mmHg 80-90 O2 SATURATION ARTERIAL (BEAKER) (test wgkv=390) 95.1 % 96.0-97.0 HCO3 ARTERIAL (BEAKER) (test mhmw=480) 33 mmol/L 21-29 BASE EXCESS ARTERIAL (BEAKER) (test koxl=222) 6.0 mmol/L -2.0-3.0 PATIENT TEMPERATURE (BEAKER) (test cfiy=2050) 37.4 C FIO2 (BEAKER) (test gjrq=9057) 70.0 % GLUCOSE-STAT [id number] 17:20:00 Test Item Value Reference Range Comments GLUCOSE RANDOM (BEAKER) (test ouir=953) 106 mg/dL 70-110 POCT-GLUCOSE [id number] 16:32:00 Test Item Value Reference Range Comments POC-GLUCOSE METER ([facility]) 115 mg/dL 70-110 TESTED AT [address] (test ndih=5920) [place] [address] VANCOMYCIN LEVEL, [id number] 16:10:00 Test Item Value Reference Range Comments VANCOMYCIN TROUGH (AKER) (test kacv=937) 17.0 ug/mL 10.0-20.0 POCT-GLUCOSE [id number] 15:32:00 Test Item Value Reference Range Comments POC-GLUCOSE METER (BEAKER) 119 mg/dL 70-110 TESTED AT [address] (test vrku=8138) [place] [id number] TROPONIN [id number] 13:14:00 Test Item Value Reference Range Comments TROPONIN I (BEAKER) (test bcmb=680) 81.57 ng/mL 0.00-0.03 Troponin I (TnI) levels [...] acute neurological disease, and persistent tachyarrhythmia.BASIC METABOLIC [id number] 12:49:00 Test Item Value Reference Range Comments SODIUM (BEAKER) (test 140 meq/L 136-145 cddu=302) POTASSIUM (BEAKER) (test 3.6 meq/L 3.5-5.1 Specimen slightly bqzv=195) hemolyzed CHLORIDE (BEAKER) (test 104 meq/L 98-107 koae=393) CO2 (BEAKER) (test 27 meq/L 22-29 zbmn=585) BLOOD UREA NITROGEN 37 mg/dL 7-21 (BEAKER) (test nkpw=814) CREATININE (BEAKER) (test 2.35 mg/dL 0.57-1.25 Specimen slightly jtoe=202) hemolyzed GLUCOSE RANDOM (BEAKER) 192 mg/dL 70-105 (test fjmv=424) CALCIUM (BEAKER) (test 8.1 mg/dL 8.4-10.2 ofzh=967) EGFR (BEAKER) (test 25 mL/min/1.73 sq m ESTIMATED GFR IS NOT honn=3088) ACCURATE CREATININE CLEARANCE IN PREDICTING GLOMERULAR FILTRATION RATE. ESTIMATED GFR IS NOT APPLICABLE FOR DIALYSIS PATIENTS. [id number] 12:46:00 Test Item Value Reference Range Comments MAGNESIUM (BEAKER) (test 2.2 mg/dL 1.6-2.6 Specimen slightly hemolyzed uvcr=694) [id number] 12:46:00 Test Item Value Reference Range Comments PHOSPHORUS (BEAKER) (test 4.6 mg/dL 2.3-4.7 Specimen slightly hemolyzed kaha=139) POCT-GLUCOSE [id number] 12:16:00 Test Item Value Reference Range Comments POC-GLUCOSE METER (BEAKER) 210 mg/dL 70-110 TESTED AT [address] (test lahr=6040) [place] [id number] POCT-GLUCOSE [id number] 12:16:00 Test Item Value Reference Range Comments POC-GLUCOSE METER (BEAKER) 247 mg/dL 70-110 TESTED AT [address] (test wylv=5556) [place] [id number] POCT-GLUCOSE [id number] 12:16:00 Test Item Value Reference Range Comments POC-GLUCOSE METER (BEAKER) 174 mg/dL 70-110 TESTED AT [address] (test emgk=0110) [place] [id number] BLOOD GAS, [id number] 12:14:00 Test Item Value Reference Range Comments PH ARTERIAL (BEAKER) (test fklt=335) 7.36 7.35-7.45 PCO2 ARTERIAL (BEAKER) (test ejxn=542) 56 mmHg 35-45 PO2 ARTERIAL (BEAKER) (test aovj=544) 65 mmHg 80-90 O2 SATURATION ARTERIAL (BEAKER) (test xsjd=626) 90.4 % 96.0-97.0 HCO3 ARTERIAL (BEAKER) (test nbzy=343) 31 mmol/L 21-29 BASE EXCESS ARTERIAL (BEAKER) (test qlpk=598) 4.8 mmol/L -2.0-3.0 PATIENT TEMPERATURE (BEAKER) (test thra=4966) 38.0 C FIO2 (BEAKER) (test logj=5407) 60.0 % [id number] 10:58:00 Test Item Value Reference Range Comments PARTIAL THROMBOPLASTIN TIME (BEAKER) (test 99.0 seconds 22.5-36.0 iqvj=666) RAD, CHEST, 1 VIEW, NON [id number] 08:30:00Reason for exam:->r/o pleural effusionShould this be [...] No pneumothorax is seen. Signed: Yoshi Martinez [facility] Verified Date/Time: 07/20/2017 08:30:52 Reading Location: [facility] [address] Radiology ReadingRoom BLOOD GAS, [id number] 06 :37:00 Test Item Value Reference Range Comments PH ARTERIAL (BEAKER) (test kejr=604) 7.38 7.35-7.45 PCO2 ARTERIAL (BEAKER) (test fnir=176) 50 mmHg 35-45 PO2 ARTERIAL (BEAKER) (test iodd=171) 97 mmHg 80-90 O2 SATURATION ARTERIAL (BEAKER) (test xyan=542) 96.9 % 96.0-97.0 HCO3 ARTERIAL (BEAKER) (test ojkf=391) 28 mmol/L 21-29 BASE EXCESS ARTERIAL (BEAKER) (test beue=555) 2.7 mmol/L -2.0-3.0 PATIENT TEMPERATURE (BEAKER) (test kcwe=1621) 37.8 C FIO2 (BEAKER) (test ntwe=6321) 40.0 % POCT-GLUCOSE [id number] 06:15:00 Test Item Value Reference Range Comments POC-GLUCOSE METER (BEAKER) 114 mg/dL 70-110 TESTED AT [address] (test haaw=8364) [facility] [id number] POCT-GLUCOSE [id number] 06:15:00 Test Item Value Reference Range Comments POC-GLUCOSE METER (BEAKER) 140 mg/dL 70-110 TESTED AT [address] (test rxaa=5132) [facility] [id number] POCT-GLUCOSE [id number] 05:23:00 Test Item Value Reference Range Comments POC-GLUCOSE METER (BEAKER) 77 mg/dL 70-110 TESTED AT [address] (test idtt=7753) [facility] [address] CALCIUM, [id number] 04:34:00 Test Item Value Reference Range Comments CALCIUM IONIZED (BEAKER) (test klrq=797) 1.14 mmol/L 1.12-1.27 PH, BLOOD (BEAKER) (test htev=9908) 7.34 BLOOD GAS, [id number] 04:32:00 Test Item Value Reference Range Comments PH ARTERIAL (BEAKER) (test bzmf=596) 7.32 7.35-7.45 PCO2 ARTERIAL (BEAKER) (test gfly=317) 60 mmHg 35-45 PO2 ARTERIAL (BEAKER) (test tudb=895) 92 mmHg 80-90 O2 SATURATION ARTERIAL (BEAKER) (test bnvc=264) 95.9 % 96.0-97.0 HCO3 ARTERIAL (BEAKER) (test iueg=405) 30 mmol/L 21-29 BASE EXCESS ARTERIAL (BEAKER) (test qxpu=093) 3.2 mmol/L -2.0-3.0 PATIENT TEMPERATURE (BEAKER) (test cttb=9597) 37.8 C FIO2 (BEAKER) (test blxx=2210) 40.0 % COMPREHENSIVE METABOLIC [id number] 04:24:00 Test Item Value Reference Range Comments TOTAL PROTEIN (BEAKER) 6.5 gm/dL 6.0-8.3 (test uybr=651) ALBUMIN (BEAKER) (test 3.4 g/dL 3.5-5.0 oaou=2599) ALKALINE PHOSPHATASE 47 U/L 40-150 (BEAKER) (test yxut=453) BILIRUBIN TOTAL (BEAKER) 0.8 mg/dL 0.2-1.2 (test losw=353) SODIUM (BEAKER) (test 142 meq/L 136-145 wswx=817) POTASSIUM (BEAKER) (test 3.7 meq/L 3.5-5.1 vvqt=254) CHLORIDE (BEAKER) (test 103 meq/L 98-107 hngt=514) CO2 (BEAKER) (test 29 meq/L 22-29 drqh=583) BLOOD UREA NITROGEN 34 mg/dL 7-21 (BEAKER) (test yred=093) CREATININE (BEAKER) (test 2.44 mg/dL 0.57-1.25 yuix=712) GLUCOSE RANDOM (BEAKER) 128 mg/dL 70-105 (test ihuh=141) CALCIUM (BEAKER) (test 8.7 mg/dL 8.4-10.2 ghdt=903) AST (SGOT) (BEAKER) (test 158 U/L 5-34 uqdz=886) ALT (SGPT) (BEAKER) (test 63 U/L 6-55 dpxd=371) EGFR (BEAKER) (test 24 mL/min/1.73 sq m ESTIMATED GFR IS NOT cvig=9828) ACCURATE CREATININE CLEARANCE IN PREDICTING GLOMERULAR FILTRATION RATE. ESTIMATED GFR IS NOT APPLICABLE FOR DIALYSIS PATIENTS. BASIC METABOLIC [id number] 04:24:00 Test Item Value Reference Range Comments SODIUM (BEAKER) (test 142 meq/L 136-145 latj=579) POTASSIUM (BEAKER) (test 3.7 meq/L 3.5-5.1 srvu=709) CHLORIDE (BEAKER) (test 103 meq/L 98-107 ytwh=877) CO2 (BEAKER) (test 29 meq/L 22-29 ujir=395) BLOOD UREA NITROGEN 34 mg/dL 7-21 (BEAKER) (test dpcz=241) CREATININE (BEAKER) (test 2.44 mg/dL 0.57-1.25 uoal=810) GLUCOSE RANDOM (BEAKER) 128 mg/dL 70-105 (test seho=844) CALCIUM (BEAKER) (test 8.7 mg/dL 8.4-10.2 bltl=459) EGFR (BEAKER) (test 24 mL/min/1.73 sq m ESTIMATED GFR IS NOT hgrc=8990) ACCURATE CREATININE CLEARANCE IN PREDICTING GLOMERULAR FILTRATION RATE. ESTIMATED GFR IS NOT APPLICABLE FOR DIALYSIS PATIENTS. [id number] 04:22:00 Test Item Value Reference Range Comments PHOSPHORUS (BEAKER) (test ghun=605) 5.2 mg/dL 2.3-4.7 [id number] 04:22:00 Test Item Value Reference Range Comments MAGNESIUM (BEAKER) (test dorh=098) 2.4 mg/dL 1.6-2.6 HEPATIC FUNCTION [id number] 04:22:00 Test Item Value Reference Range Comments TOTAL PROTEIN (BEAKER) (test udta=687) 6.5 gm/dL 6.0-8.3 ALBUMIN (BEAKER) (test qgmu=5719) 3.4 g/dL 3.5-5.0 BILIRUBIN TOTAL (BEAKER) (test chzh=906) 0.8 mg/dL 0.2-1.2 BILIRUBIN DIRECT (BEAKER) (test pvqr=500) 0.4 mg/dL 0.1-0.5 ALKALINE PHOSPHATASE (BEAKER) (test rtjc=960) 47 U/L 40-150 AST (SGOT) (BEAKER) (test zhpo=745) 158 U/L 5-34 ALT (SGPT) (BEAKER) (test tcei=329) 63 U/L 6-55 [id number] 04:12:00 Test Item Value Reference Range Comments PARTIAL THROMBOPLASTIN TIME (BEAKER) (test 36.8 seconds 22.5-36.0 xvke=002) Prior to initiating heparinPOCT-GLUCOSE [id number] 04:05:00 Test Item Value Reference Range Comments POC-GLUCOSE METER (BEAKER) 134 mg/dL 70-110 TESTED AT [address] (test ankj=4810) [facility] [address] POCT-GLUCOSE [id number] 04:05:00 Test Item Value Reference Range Comments POC-GLUCOSE METER (BEAKER) 122 mg/dL 70-110 TESTED AT [facility] [address] [facility] (test zvbs=6766) [facility] [address] POCT-GLUCOSE [id number] 04:05:00 Test Item Value Reference Range Comments POC-GLUCOSE METER (BEAKER) 201 mg/dL 70-110 TESTED AT [place] [id number] [facility] (test gvcx=6995) [facility] [address] CBC W/PLT COUNT & AUTO [id number] 04:02:00 Test Item Value Reference Range Comments WHITE BLOOD CELL COUNT (BEAKER) (test yoom=441) 13.6 K/ L 3.5-10.5 RED BLOOD CELL COUNT (BEAKER) (test tzoy=182) 3.18 M/ L 3.93-5.22 HEMOGLOBIN (BEAKER) (test exta=569) 9.7 GM/DL 11.2-15.7 HEMATOCRIT (BEAKER) (test dlyk=474) 31.0 % 34.1-44.9 MEAN CORPUSCULAR VOLUME (BEAKER) (test rbde=826) 97.5 fL 79.4-94.8 MEAN CORPUSCULAR HEMOGLOBIN (BEAKER) (test 30.5 pg 25.6-32.2 dceh=625) MEAN CORPUSCULAR HEMOGLOBIN CONC (BEAKER) (test 31.3 GM/DL 32.2-35.5 tbhp=129) RED CELL DISTRIBUTION WIDTH (BEAKER) (test 13.3 % 11.7-14.4 vnel=266) PLATELET COUNT (BEAKER) (test fpnu=105) 167 K/CU MM 150-450 MEAN PLATELET VOLUME (BEAKER) (test ohoa=279) 11.0 fL 9.4-12.3 NUCLEATED RED BLOOD CELLS (BEAKER) (test 0 /100 WBC 0-0 rims=446) NEUTROPHILS RELATIVE PERCENT (BEAKER) (test 85 % hoqw=367) LYMPHOCYTES RELATIVE PERCENT (BEAKER) (test 7 % jvlj=971) MONOCYTES RELATIVE PERCENT (BEAKER) (test 7 % lkgk=477) EOSINOPHILS RELATIVE PERCENT (BEAKER) (test 0 % khzn=727) BASOPHILS RELATIVE PERCENT (BEAKER) (test 0 % paah=033) NEUTROPHILS ABSOLUTE COUNT (BEAKER) (test 11.61 K/ L 1.56-6.13 ucvs=673) LYMPHOCYTES ABSOLUTE COUNT (BEAKER) (test 0.98 K/ L 1.18-3.74 wsuh=371) MONOCYTES ABSOLUTE COUNT (BEAKER) (test 0.92 K/ L 0.24-0.36 wfda=550) EOSINOPHILS ABSOLUTE COUNT (BEAKER) (test 0.00 K/ L 0.04-0.36 rbdm=899) BASOPHILS ABSOLUTE COUNT (BEAKER) (test 0.02 K/ L 0.01-0.08 rubu=464) IMMATURE GRANULOCYTES-RELATIVE PERCENT (BEAKER) 1 % 0-1 (test glsx=0355) [id number] 02:01:00 Test Item Value Reference Range Comments PARTIAL THROMBOPLASTIN TIME (BEAKER) (test 32.5 seconds 22.5-36.0 btqb=983) BLOOD GAS, [id number] 01:09:00 Test Item Value Reference Range Comments PH ARTERIAL (BEAKER) (test lgxj=335) 7.35 7.35-7.45 PCO2 ARTERIAL (BEAKER) (test ywmt=883) 50 mmHg 35-45 PO2 ARTERIAL (BEAKER) (test luly=237) 86 mmHg 80-90 O2 SATURATION ARTERIAL (BEAKER) (test kewb=070) 95.3 % 96.0-97.0 HCO3 ARTERIAL (BEAKER) (test uyme=048) 27 mmol/L 21-29 BASE EXCESS ARTERIAL (BEAKER) (test ovjq=329) 1.0 mmol/L -2.0-3.0 PATIENT TEMPERATURE (BEAKER) (test phge=6631) 38.2 C FIO2 (BEAKER) (test ksmm=1190) 40.0 % POCT-GLUCOSE [id number] 01:04:00 Test Item Value Reference Range Comments POC-GLUCOSE METER (BEAKER) 199 mg/dL 70-110 TESTED AT [facility] [address] [facility] (test jkgi=8141) [facility] [address] [id number] 00:14:00 Test Item Value Reference Range Comments MAGNESIUM (BEAKER) (test 2.3 mg/dL 1.6-2.6 Specimen slightly hemolyzed gify=596) [id number] 00:14:00 Test Item Value Reference Range Comments POTASSIUM (BEAKER) (test 3.8 meq/L 3.5-5.1 Specimen slightly hemolyzed rybc=282) CALCIUM, [id number] 00:11:00 Test Item Value Reference Range Comments CALCIUM IONIZED (BEAKER) (test vzfz=734) 1.06 mmol/L 1.12-1.27 PH, BLOOD (BEAKER) (test tdnc=6670) 7.35 BLOOD GAS, [id number] 00:11:00 Test Item Value Reference Range Comments PH ARTERIAL (BEAKER) (test obip=299) 7.33 7.35-7.45 PCO2 ARTERIAL (BEAKER) (test cqgb=468) 53 mmHg 35-45 PO2 ARTERIAL (BEAKER) (test gpsq=978) 58 mmHg 80-90 O2 SATURATION ARTERIAL (BEAKER) (test mhym=575) 86.1 % 96.0-97.0 HCO3 ARTERIAL (BEAKER) (test nwqv=870) 27 mmol/L 21-29 BASE EXCESS ARTERIAL (BEAKER) (test vgva=194) 0.9 mmol/L -2.0-3.0 PATIENT TEMPERATURE (BEAKER) (test yhro=4073) 38.0 C FIO2 (BEAKER) (test vnwl=3486) 40.0 % Post extubation ABGPOCT-GLUCOSE [id number] 23:58:00 Test Item Value Reference Range Comments POC-GLUCOSE METER (BEAKER) 202 mg/dL 70-110 TESTED AT [address] (test ovuj=5290) [place] [id number] POCT-GLUCOSE [id number] 23:58:00 Test Item Value Reference Range Comments POC-GLUCOSE METER (BEAKER) 86 mg/dL 70-110 TESTED AT [address] (test nzyd=7385) [facility] [address] BASIC METABOLIC [id number] 22:18:00 Test Item Value Reference Range Comments SODIUM (BEAKER) (test 141 meq/L 136-145 qlvt=660) POTASSIUM (BEAKER) (test 3.6 meq/L 3.5-5.1 Specimen slightly xkse=131) hemolyzed CHLORIDE (BEAKER) (test 105 meq/L 98-107 wnsl=913) CO2 (BEAKER) (test 26 meq/L 22-29 rycr=857) BLOOD UREA NITROGEN 31 mg/dL 7-21 (BEAKER) (test yyjs=524) CREATININE (BEAKER) (test 2.09 mg/dL 0.57-1.25 Specimen slightly dndd=279) hemolyzed GLUCOSE RANDOM (BEAKER) 81 mg/dL 70-105 (test iraq=530) CALCIUM (BEAKER) (test 8.3 mg/dL 8.4-10.2 lwdz=816) EGFR (BEAKER) (test 28 mL/min/1.73 sq m ESTIMATED GFR IS NOT ouir=6250) ACCURATE CREATININE CLEARANCE IN PREDICTING GLOMERULAR FILTRATION RATE. ESTIMATED GFR IS NOT APPLICABLE FOR DIALYSIS PATIENTS. [id number] 22:17:00 Test Item Value Reference Range Comments PHOSPHORUS (BEAKER) (test 5.1 mg/dL 2.3-4.7 Specimen slightly hemolyzed njei=781) POCT-GLUCOSE [id number] 20:57:00 Test Item Value Reference Range Comments POC-GLUCOSE METER (BEAKER) 90 mg/dL 70-110 TESTED AT [address] (test hquj=6385) [facility] [address] BLOOD GAS, [id number] 20:52:00 Test Item Value Reference Range Comments PH ARTERIAL (BEAKER) (test ysky=725) 7.35 7.35-7.45 PCO2 ARTERIAL (BEAKER) (test qege=794) 49 mmHg 35-45 PO2 ARTERIAL (BEAKER) (test wmes=530) 100 mmHg 80-90 O2 SATURATION ARTERIAL (BEAKER) (test jfdc=739) 97.0 % 96.0-97.0 HCO3 ARTERIAL (BEAKER) (test ovao=031) 26 mmol/L 21-29 BASE EXCESS ARTERIAL (BEAKER) (test yxsr=884) 0.3 mmol/L -2.0-3.0 PATIENT TEMPERATURE (BEAKER) (test fdcm=6436) 37.7 C FIO2 (BEAKER) (test vlqk=2312) 40.0 % [id number] 18:57:00 Test Item Value Reference Range Comments PARTIAL THROMBOPLASTIN TIME (BEAKER) (test 70.7 seconds 22.5-36.0 bdlv=932) BLOOD GAS, [id number] 16:52:00 Test Item Value Reference Range Comments PH ARTERIAL (BEAKER) (test guxh=917) 7.37 7.35-7.45 PCO2 ARTERIAL (BEAKER) (test kcul=076) 47 mmHg 35-45 PO2 ARTERIAL (BEAKER) (test uity=714) 117 mmHg 80-90 O2 SATURATION ARTERIAL (BEAKER) (test qlev=937) 98.0 % 96.0-97.0 HCO3 ARTERIAL (BEAKER) (test fsit=090) 26 mmol/L 21-29 BASE EXCESS ARTERIAL (BEAKER) (test gdbc=192) 0.5 mmol/L -2.0-3.0 PATIENT TEMPERATURE (BEAKER) (test dffq=5892) 37.7 C FIO2 (BEAKER) (test zutd=0609) 60.0 % GLUCOSE-STAT [id number] 16:52:00 Test Item Value Reference Range Comments GLUCOSE RANDOM (BEAKER) (test nnuj=716) 149 mg/dL 70-110 [id number] 16:22:00 Test Item Value Reference Range Comments PARTIAL THROMBOPLASTIN TIME (BEAKER) (test 197.7 seconds 22.5-36.0 rrob=697) PROTHROMBIN [id number] 16:15:00 Test Item Value Reference Range Comments PROTIME (BEAKER) (test pezz=098) 16.4 seconds 11.7-14.7 INR (BEAKER) (test igfp=880) 1.3 <=5.9 RECOMMENDED COUMADIN/WARFARIN INR THERAPY RANGESSTANDARD DOSE: 2.0 - 3.0 Includes: PROPHYLAXIS forvenous thrombosis, systemic embolization; TREATMENT for venous thrombosis and/or pulmonary embolus.HIGH RISK: Target INR is 2.5-3.5 for patients with mechanical heart valves.[id number] 16:15:00 Test Item Value Reference Range Comments FIBRINOGEN LEVEL (BEAKER) (test vjgs=068) 303 mg/dl 225-434 [id number] 16:15:00 Test Item Value Reference Range Comments MAGNESIUM (BEAKER) (test 3.0 mg/dL 1.6-2.6 Specimen moderately hemolyzed bqfd=790) [id number] 16:15:00 Test Item Value Reference Range Comments PHOSPHORUS (BEAKER) (test 6.6 mg/dL 2.3-4.7 Specimen moderately hemolyzed vaym=584) BASIC METABOLIC [id number] 16:15:00 Test Item Value Reference Range Comments SODIUM (BEAKER) (test 144 meq/L 136-145 twqs=122) POTASSIUM (BEAKER) (test 4.1 meq/L 3.5-5.1 Specimen moderately gfpn=351) hemolyzed CHLORIDE (BEAKER) (test 106 meq/L 98-107 wmxb=868) CO2 (BEAKER) (test 27 meq/L 22-29 hngo=093) BLOOD UREA NITROGEN 30 mg/dL 7-21 (BEAKER) (test fevo=520) CREATININE (BEAKER) (test 1.99 mg/dL 0.57-1.25 Specimen moderately ipqr=344) hemolyzed GLUCOSE RANDOM (BEAKER) 165 mg/dL 70-105 (test mqyi=234) CALCIUM (BEAKER) (test 8.6 mg/dL 8.4-10.2 vvjd=578) EGFR (BEAKER) (test 30 mL/min/1.73 sq m ESTIMATED GFR IS NOT ydia=0902) ACCURATE CREATININE CLEARANCE IN PREDICTING GLOMERULAR FILTRATION RATE. ESTIMATED GFR IS NOT APPLICABLE FOR DIALYSIS PATIENTS. CBC (HEMOGRAM ONLY)2017-07-19 16:13:00 Test Item Value Reference Range Comments WHITE BLOOD CELL COUNT (BEAKER) (test dluq=311) 14.5 K/ L 3.5-10.5 RED BLOOD CELL COUNT (BEAKER) (test riza=015) 3.55 M/ L 3.93-5.22 HEMOGLOBIN (BEAKER) (test yqdm=577) 10.7 GM/DL 11.2-15.7 HEMATOCRIT (BEAKER) (test ptfb=632) 34.9 % 34.1-44.9 MEAN CORPUSCULAR VOLUME (BEAKER) (test nzug=150) 98.3 fL 79.4-94.8 MEAN CORPUSCULAR HEMOGLOBIN (BEAKER) (test 30.1 pg 25.6-32.2 lwjt=652) MEAN CORPUSCULAR HEMOGLOBIN CONC (BEAKER) (test 30.7 GM/DL 32.2-35.5 ndqc=918) RED CELL DISTRIBUTION WIDTH (BEAKER) (test 13.3 % 11.7-14.4 zdcj=431) PLATELET COUNT (BEAKER) (test hccl=307) 235 K/CU MM 150-450 MEAN PLATELET VOLUME (BEAKER) (test mtyh=137) 11.0 fL 9.4-12.3 NUCLEATED RED BLOOD CELLS (BEAKER) (test 0 /100 WBC 0-0 xofx=513) LACTIC ACID, ARTERIAL, WHOLE [id number] 16:12:00 Test Item Value Reference Range Comments LACTATE BLOOD ARTERIAL (2) 2.0 mmol/L 0.5-2.2 Specimen slightly hemolyzed (BEAKER) (test yxxb=9643) Effective 08/06/2015: Units/Reference Range ChangeNew: 0.5-2.2 mmol/L Previous: 5 -20 mg/dLCALCIUM, [id number] 15:54:00 Test Item Value Reference Range Comments CALCIUM IONIZED (BEAKER) (test apwz=271) 1.14 mmol/L 1.12-1.27 PH, BLOOD (BEAKER) (test gzrd=5586) 7.24 SODIUM NA-STAT [id number] 15:54:00 Test Item Value Reference Range Comments SODIUM (BEAKER) (test aekn=147) 143 meq/L 135-148 POTASSIUM-STAT [id number] 15:54:00 Test Item Value Reference Range Comments POTASSIUM (BEAKER) (test arxl=671) 3.9 meq/L 3.6-5.5 BLOOD GAS, [id number] 15:54:00 Test Item Value Reference Range Comments PH ARTERIAL (BEAKER) (test dopg=587) 7.26 7.35-7.45 PCO2 ARTERIAL (BEAKER) (test aozc=457) 69 mmHg 35-45 PO2 ARTERIAL (BEAKER) (test zshe=378) 74 mmHg 80-90 O2 SATURATION ARTERIAL (BEAKER) (test lgtz=781) 93.4 % 96.0-97.0 HCO3 ARTERIAL (BEAKER) (test vudo=026) 31 mmol/L 21-29 BASE EXCESS ARTERIAL (BEAKER) (test tats=714) 2.0 mmol/L -2.0-3.0 PATIENT TEMPERATURE (BEAKER) (test wxzc=3544) 35.6 C FIO2 (BEAKER) (test vmho=0428) 50.0 % GLUCOSE-STAT [id number] 15:54:00 Test Item Value Reference Range Comments GLUCOSE RANDOM (BEAKER) (test yise=479) 169 mg/dL 70-110 HGB/HCT (H&H) - STAT [id number] 15:54:00 Test Item Value Reference Range Comments HEMOGLOBIN (STEVAN) (test gtun=327) 11.7 g/dL 12.0-15.0 HEMATOCRIT (STEVAN) (test vzwc=593) 34.0 % 36.0-45.0 RAD, CHEST, 1 VIEW, NON [id number] 15:49:00Reason for exam:->sp PCI/ intubatedFINAL REPORT TECHNIQUE: [...] Bones are osteopenic. No fracture. Signed: Dawson Noeleport Verified Date/Time: 07/19/2017 15:49:37 Reading Location: [facility] RadiologyReading Room [id number] 14:13:00 Test Item Value Reference Range Comments ACTIVATED CLOTTING TIME 131 sec TESTED AT [facility] [address] [facility] (test baci=537) [facility] [address] TROPONIN [id number] 12:32:00 Test Item Value Reference Range Comments TROPONIN I (STEVAN) (test ivlj=988) 119.79 ng/mL 0.00-0.03 Troponin I (TnI) levels [...] and persistent tachyarrhythmia.CREATINE KINASE (CK), TOTAL AND [id number] 12:26:00 Test Item Value Reference Range Comments CREATINE KINASE TOTAL (STEVAN) (test fgvk=418) 2405 U/L 29-200 CREATINE KINASE-MB (BEAKER) (test uuma=842) 65.6 ng/mL 0.0-6.6 CREATINE KINASE-MB INDEX (BEAKER) (test oezh=037) 2.7 % CK-MB Reference Range:<6.7 Normal6.7-10.0 Borderline>10.0 AbnormalPOCT-GLUCOSE [id number] 12:20:00 Test Item Value Reference Range Comments POC-GLUCOSE METER (BEAKER) 183 mg/dL 70-110 TESTED AT [address] (test rxsw=4269) [place] [address] [id number] 12:03:00 Test Item Value Reference Range Comments MAGNESIUM (BEAKER) (test qfis=411) 2.8 mg/dL 1.6-2.6 [id number] 12:03:00 Test Item Value Reference Range Comments PHOSPHORUS (BEAKER) (test wgur=138) 5.3 mg/dL 2.3-4.7 BASIC METABOLIC [id number] 12:03:00 Test Item Value Reference Range Comments SODIUM (BEAKER) (test 143 meq/L 136-145 yxnk=074) POTASSIUM (BEAKER) (test 3.8 meq/L 3.5-5.1 paxu=855) CHLORIDE (BEAKER) (test 106 meq/L 98-107 mnpu=500) CO2 (BEAKER) (test 27 meq/L 22-29 qoqi=179) BLOOD UREA NITROGEN 29 mg/dL 7-21 (BEAKER) (test murk=177) CREATININE (BEAKER) (test 1.92 mg/dL 0.57-1.25 prac=194) GLUCOSE RANDOM (BEAKER) 188 mg/dL 70-105 (test lnrj=611) CALCIUM (BEAKER) (test 8.7 mg/dL 8.4-10.2 cqvr=776) EGFR (BEAKER) (test 31 mL/min/1.73 sq m ESTIMATED GFR IS NOT khow=8739) ACCURATE CREATININE CLEARANCE IN PREDICTING GLOMERULAR FILTRATION RATE. ESTIMATED GFR IS NOT APPLICABLE FOR DIALYSIS PATIENTS. POCT-GLUCOSE [id number] 11:19:00 Test Item Value Reference Range Comments POC-GLUCOSE METER (BEAKER) 190 mg/dL 70-110 TESTED AT [address] (test zjoo=8934) [place] [address] POCT-GLUCOSE [id number] 10:12:00 Test Item Value Reference Range Comments POC-GLUCOSE METER (BEAKER) 197 mg/dL 70-110 TESTED AT [address] (test fgio=0444) [place] [address] POCT-GLUCOSE [id number] 09:21:00 Test Item Value Reference Range Comments POC-GLUCOSE METER (BEAKER) 221 mg/dL 70-110 TESTED AT [address] (test rtmt=9255) [place] [address] LACTIC ACID, ARTERIAL, WHOLE [id number] 09:19:00 Test Item Value Reference Range Comments LACTATE BLOOD ARTERIAL (2) (BEAKER) (test 2.4 mmol/L 0.5-2.2 qden=4362) Effective 08/06/2015: Units/Reference Range ChangeNew: 0.5-2.2 mmol/L Previous: 5 -20 mg/dLPROTHROMBIN TIME/[id number] 08:44:00 Test Item Value Reference Range Comments PROTIME (BEAKER) (test hhuq=771) 14.4 seconds 11.7-14.7 INR (BEAKER) (test nqcl=567) 1.1 <=5.9 RECOMMENDED COUMADIN/WARFARIN INR THERAPY RANGESSTANDARD DOSE: 2.0 - 3.0 Includes: PROPHYLAXIS forvenous thrombosis, systemic embolization; TREATMENT for venous thrombosis and/or pulmonary embolus.HIGH RISK: Target INR is 2.5-3.5 for patients with mechanical heart valves.[id number] 08:44:00 Test Item Value Reference Range Comments FIBRINOGEN LEVEL (BEAKER) (test zvnc=932) 367 mg/dl 225-434 [id number] 08:44:00 Test Item Value Reference Range Comments PARTIAL THROMBOPLASTIN TIME (BEAKER) (test 30.0 seconds 22.5-36.0 nija=611) POCT-GLUCOSE [id number] 07:52:00 Test Item Value Reference Range Comments POC-GLUCOSE METER (BEAKER) 215 mg/dL 70-110 TESTED AT [address] (test yhxo=1775) [place] [address] CT, CHEST, WITHOUT [id number] 07:50:00KEEP PATIENT ON CT TABLE. CALL RADIOLOGIST [...] Verified Date /Time: 07/19/2017 07:50:43 Reading Location: [facility] Diagnostic Imaging Reading Room - [place] [id number] Electronically signed by: LYNNETTE CASTRO MD on 07:50 AMPOCT-GLUCOSE [id number] 07:37:00 Test Item Value Reference Range Comments POC-GLUCOSE METER (BEAKER) 225 mg/dL 70-110 TESTED AT [facility] [address] (test nqsl=1616) [facility] [address] RAD, CHEST, 1 VIEW, NON [id number] 04:04:00Reason for exam:->v tach/ iabpShould this be [...] MDReport Verified Date/Time: 07/19/2017 04:04:19 Reading Location: [place] [id number] Ortho Consult Reading Room [id number] 03:59:00 Test Item Value Reference Range Comments PHOSPHORUS (BEAKER) (test obvh=269) 4.4 mg/dL 2.3-4.7 [id number] 03:59:00 Test Item Value Reference Range Comments MAGNESIUM (BEAKER) (test guhd=586) 2.5 mg/dL 1.6-2.6 BASIC METABOLIC [id number] 03:59:00 Test Item Value Reference Range Comments SODIUM (BEAKER) (test 145 meq/L 136-145 sorz=634) POTASSIUM (BEAKER) (test 3.6 meq/L 3.5-5.1 wnbq=381) CHLORIDE (BEAKER) (test 106 meq/L 98-107 vijn=237) CO2 (BEAKER) (test 25 meq/L 22-29 ljsn=865) BLOOD UREA NITROGEN 28 mg/dL 7-21 (BEAKER) (test xxoq=774) CREATININE (BEAKER) (test 1.93 mg/dL 0.57-1.25 rfsb=416) GLUCOSE RANDOM (BEAKER) 216 mg/dL 70-105 (test mmef=033) CALCIUM (BEAKER) (test 9.0 mg/dL 8.4-10.2 scuq=536) EGFR (BEAKER) (test 31 mL/min/1.73 sq m ESTIMATED GFR IS NOT woyk=8615) ACCURATE CREATININE CLEARANCE IN PREDICTING GLOMERULAR FILTRATION RATE. ESTIMATED GFR IS NOT APPLICABLE FOR DIALYSIS PATIENTS. B-TYPE NATRIURETIC FACTOR (BNP)2017-07-19 03:10:00 Test Item Value Reference Range Comments B-TYPE NATRIURETIC PEPTIDE (BEAKER) (test 2662 pg/mL 0-100 czol=464) HEPATIC FUNCTION [id number] 03:04:00 Test Item Value Reference Range Comments TOTAL PROTEIN (BEAKER) (test fjxq=085) 6.6 gm/dL 6.0-8.3 ALBUMIN (BEAKER) (test kvdg=1641) 3.5 g/dL 3.5-5.0 BILIRUBIN TOTAL (BEAKER) (test qsoe=412) 0.4 mg/dL 0.2-1.2 BILIRUBIN DIRECT (BEAKER) (test gzcx=370) 0.2 mg/dL 0.1-0.5 ALKALINE PHOSPHATASE (BEAKER) (test knrf=347) 57 U/L 40-150 AST (SGOT) (BEAKER) (test kasr=969) 359 U/L 5-34 ALT (SGPT) (BEAKER) (test tyjf=073) 99 U/L 6-55 CREATINE KINASE (CK)2017-07-19 03:04:00 Test Item Value Reference Range Comments CREATINE KINASE TOTAL (BEAKER) (test pkry=910) 2888 U/L 29-200 CBC W/PLT COUNT & AUTO [id number] 02:56:00 Test Item Value Reference Range Comments WHITE BLOOD CELL COUNT (BEAKER) (test atug=504) 19.0 K/ L 3.5-10.5 RED BLOOD CELL COUNT (BEAKER) (test dckp=821) 3.69 M/ L 3.93-5.22 HEMOGLOBIN (BEAKER) (test gqzs=138) 11.2 GM/DL 11.2-15.7 HEMATOCRIT (BEAKER) (test bpgt=453) 35.3 % 34.1-44.9 MEAN CORPUSCULAR VOLUME (BEAKER) (test wvtw=521) 95.7 fL 79.4-94.8 MEAN CORPUSCULAR HEMOGLOBIN (BEAKER) (test 30.4 pg 25.6-32.2 rddq=715) MEAN CORPUSCULAR HEMOGLOBIN CONC (BEAKER) (test 31.7 GM/DL 32.2-35.5 uifx=515) RED CELL DISTRIBUTION WIDTH (BEAKER) (test 13.1 % 11.7-14.4 ynjd=239) PLATELET COUNT (BEAKER) (test eczr=058) 253 K/CU MM 150-450 MEAN PLATELET VOLUME (BEAKER) (test suxn=932) 10.0 fL 9.4-12.3 NUCLEATED RED BLOOD CELLS (BEAKER) (test 0 /100 WBC 0-0 abrj=000) NEUTROPHILS RELATIVE PERCENT (BEAKER) (test 86 % prbw=651) LYMPHOCYTES RELATIVE PERCENT (BEAKER) (test 6 % rvlg=854) MONOCYTES RELATIVE PERCENT (BEAKER) (test 7 % goms=796) EOSINOPHILS RELATIVE PERCENT (BEAKER) (test 0 % lodd=583) BASOPHILS RELATIVE PERCENT (BEAKER) (test 0 % gbmt=893) NEUTROPHILS ABSOLUTE COUNT (BEAKER) (test 16.34 K/ L 1.56-6.13 eijp=999) LYMPHOCYTES ABSOLUTE COUNT (BEAKER) (test 1.15 K/ L 1.18-3.74 ozon=565) MONOCYTES ABSOLUTE COUNT (BEAKER) (test 1.39 K/ L 0.24-0.36 bjma=105) EOSINOPHILS ABSOLUTE COUNT (BEAKER) (test 0.00 K/ L 0.04-0.36 gdgr=690) BASOPHILS ABSOLUTE COUNT (BEAKER) (test 0.02 K/ L 0.01-0.08 iogh=606) IMMATURE GRANULOCYTES-RELATIVE PERCENT (BEAKER) 0 % 0-1 (test mtgv=1314) CALCIUM, [id number] 02:49:00 Test Item Value Reference Range Comments CALCIUM IONIZED (BEAKER) (test ovww=446) 1.14 mmol/L 1.12-1.27 PH, BLOOD (BEAKER) (test ckad=5335) 7.36 CBC (HEMOGRAM ONLY)2017-07-19 02:48:00 Test Item Value Reference Range Comments WHITE BLOOD CELL COUNT (BEAKER) (test mzza=829) 19.0 K/ L 3.5-10.5 RED BLOOD CELL COUNT (BEAKER) (test gazc=680) 3.69 M/ L 3.93-5.22 HEMOGLOBIN (BEAKER) (test pbrt=680) 11.2 GM/DL 11.2-15.7 HEMATOCRIT (BEAKER) (test mchz=300) 35.3 % 34.1-44.9 MEAN CORPUSCULAR VOLUME (BEAKER) (test wjkl=284) 95.7 fL 79.4-94.8 MEAN CORPUSCULAR HEMOGLOBIN (BEAKER) (test 30.4 pg 25.6-32.2 zgbb=274) MEAN CORPUSCULAR HEMOGLOBIN CONC (BEAKER) (test 31.7 GM/DL 32.2-35.5 btsf=282) RED CELL DISTRIBUTION WIDTH (BEAKER) (test 13.1 % 11.7-14.4 aqxu=326) PLATELET COUNT (BEAKER) (test pshn=391) 253 K/CU MM 150-450 MEAN PLATELET VOLUME (BEAKER) (test ajfs=276) 10.0 fL 9.4-12.3 NUCLEATED RED BLOOD CELLS (BEAKER) (test 0 /100 WBC 0-0 wami=221) BLOOD GAS, [id number] 02:48:00 Test Item Value Reference Range Comments PH ARTERIAL (BEAKER) (test dnha=362) 7.35 7.35-7.45 PCO2 ARTERIAL (BEAKER) (test geit=545) 55 mmHg 35-45 PO2 ARTERIAL (BEAKER) (test nwsj=390) 73 mmHg 80-90 O2 SATURATION ARTERIAL (BEAKER) (test oslj=040) 93.3 % 96.0-97.0 HCO3 ARTERIAL (BEAKER) (test ffvl=597) 30 mmol/L 21-29 BASE EXCESS ARTERIAL (BEAKER) (test kdxs=323) 3.1 mmol/L -2.0-3.0 PATIENT TEMPERATURE (BEAKER) (test aycy=0325) 37.5 C FIO2 (BEAKER) (test hhni=4578) 40.0 % POCT-GLUCOSE [id number] 02:21:00 Test Item Value Reference Range Comments POC-GLUCOSE METER (BEAKER) 184 mg/dL 70-110 TESTED AT [facility] [address] [facility] (test biae=4814) [facility] [address] POCT-GLUCOSE [id number] 01:15:00 Test Item Value Reference Range Comments POC-GLUCOSE METER (BEAKER) 173 mg/dL 70-110 TESTED AT [address] (test ttpq=3145) [facility] [address] [id number] 00:55:00 Test Item Value Reference Range Comments PHOSPHORUS (BEAKER) (test svru=282) 3.3 mg/dL 2.3-4.7 [id number] 00:55:00 Test Item Value Reference Range Comments MAGNESIUM (BEAKER) (test rvvy=613) 1.8 mg/dL 1.6-2.6 BASIC METABOLIC [id number] 00:55:00 Test Item Value Reference Range Comments SODIUM (BEAKER) (test 143 meq/L 136-145 scjp=653) POTASSIUM (BEAKER) (test 3.9 meq/L 3.5-5.1 qdsr=493) CHLORIDE (BEAKER) (test 106 meq/L 98-107 lvjt=096) CO2 (BEAKER) (test 27 meq/L 22-29 kbgo=490) BLOOD UREA NITROGEN 27 mg/dL 7-21 (BEAKER) (test ytgm=489) CREATININE (BEAKER) (test 1.90 mg/dL 0.57-1.25 adlo=988) GLUCOSE RANDOM (BEAKER) 181 mg/dL 70-105 (test hnyo=921) CALCIUM (BEAKER) (test 8.9 mg/dL 8.4-10.2 bviq=892) EGFR (BEAKER) (test 32 mL/min/1.73 sq m ESTIMATED GFR IS NOT romi=3056) ACCURATE CREATININE CLEARANCE IN PREDICTING GLOMERULAR FILTRATION RATE. ESTIMATED GFR IS NOT APPLICABLE FOR DIALYSIS PATIENTS. POCT-GLUCOSE [id number] 00:11:00 Test Item Value Reference Range Comments POC-GLUCOSE METER (BEAKER) 177 mg/dL 70-110 TESTED AT [address] (test xicg=2007) [facility] [address] POCT-GLUCOSE [id number] 23:25:00 Test Item Value Reference Range Comments POC-GLUCOSE METER (BEAKER) 206 mg/dL 70-110 TESTED AT [address] (test gehx=6337) [facility] [address] POCT-GLUCOSE [id number] 22:19:00 Test Item Value Reference Range Comments POC-GLUCOSE METER (BEAKER) 243 mg/dL 70-110 TESTED AT [address] (test xoir=0525) [facility] [address] POCT-GLUCOSE [id number] 21:37:00 Test Item Value Reference Range Comments POC-GLUCOSE METER (BEAKER) 235 mg/dL 70-110 TESTED AT [address] (test reoc=0582) [facility] [address] POCT-GLUCOSE [id number] 20:04:00 Test Item Value Reference Range Comments POC-GLUCOSE METER (BEAKER) 216 mg/dL 70-110 TESTED AT [address] (test igss=1428) [facility] [address] POCT-GLUCOSE [id number] 18:40:00 Test Item Value Reference Range Comments POC-GLUCOSE METER (BEAKER) 271 mg/dL 70-110 TESTED AT [address] (test npoj=0127) [facility] [address] [id number] 18:32:00 Test Item Value Reference Range Comments MAGNESIUM (BEAKER) (test 1.9 mg/dL 1.6-2.6 Specimen slightly hemolyzed kwpi=997) [id number] 18:32:00 Test Item Value Reference Range Comments PHOSPHORUS (BEAKER) (test 3.1 mg/dL 2.3-4.7 Specimen slightly hemolyzed megf=495) BASIC METABOLIC [id number] 18:32:00 Test Item Value Reference Range Comments SODIUM (BEAKER) (test 142 meq/L 136-145 rnys=438) POTASSIUM (BEAKER) (test 3.9 meq/L 3.5-5.1 Specimen slightly doly=942) hemolyzed CHLORIDE (BEAKER) (test 107 meq/L 98-107 xgfp=199) CO2 (BEAKER) (test 24 meq/L 22-29 jgbe=564) BLOOD UREA NITROGEN 22 mg/dL 7-21 (BEAKER) (test nlhx=455) CREATININE (BEAKER) (test 1.55 mg/dL 0.57-1.25 Specimen slightly dkgl=467) hemolyzed GLUCOSE RANDOM (BEAKER) 242 mg/dL 70-105 (test vswk=114) CALCIUM (BEAKER) (test 8.8 mg/dL 8.4-10.2 tlgt=098) EGFR (BEAKER) (test 40 mL/min/1.73 sq m ESTIMATED GFR IS NOT tikc=5583) ACCURATE CREATININE CLEARANCE IN PREDICTING GLOMERULAR FILTRATION RATE. ESTIMATED GFR IS NOT APPLICABLE FOR DIALYSIS PATIENTS. BLOOD GAS, [id number] 18:24:00 Test Item Value Reference Range Comments PH ARTERIAL (BEAKER) (test xzdr=576) 7.34 7.35-7.45 PCO2 ARTERIAL (BEAKER) (test zszy=407) 51 mmHg 35-45 PO2 ARTERIAL (BEAKER) (test dqqv=114) 57 mmHg 80-90 O2 SATURATION ARTERIAL (BEAKER) (test cutf=779) 87.5 % 96.0-97.0 HCO3 ARTERIAL (BEAKER) (test pbrf=650) 27 mmol/L 21-29 BASE EXCESS ARTERIAL (BEAKER) (test afzv=565) 1.0 mmol/L -2.0-3.0 PATIENT TEMPERATURE (BEAKER) (test fwfs=9225) 37.2 C FIO2 (BEAKER) (test fadz=6239) 40.0 % POCT-GLUCOSE [id number] 17:14:00 Test Item Value Reference Range Comments POC-GLUCOSE METER (BEAKER) 299 mg/dL 70-110 TESTED AT [place] [address] [address] (test pnsu=8565) [facility] [address] LACTIC ACID, ARTERIAL, WHOLE [id number] 16:37:00 Test Item Value Reference Range Comments LACTATE BLOOD ARTERIAL (2) 2.9 mmol/L 0.5-2.2 Specimen slightly hemolyzed (BEAKER) (test sucp=8220) Effective 08/06/2015: Units/Reference Range ChangeNew: 0.5-2.2 mmol/L Previous: 5 -20 mg/[id number] 15:45:00 Test Item Value Reference Range Comments GLUCOSE RANDOM (BEAKER) (test siud=260) 439 mg/dL 70-105 If last glucose was less than 500, may do bedside glucose instead of serum glucose.POCT-GLUCOSE [id number] 15:21:00 Test Item Value Reference Range Comments POC-GLUCOSE METER (BEAKER) 374 mg/dL 70-110 Notified PAULA BERGER/TESTED AT [facility] (test pmnd=5635) [facility] GAL [facility] [address] [id number] 15:14:00 Test Item Value Reference Range Comments POTASSIUM (BEAKER) (test zhcy=059) 4.0 meq/L 3.5-5.1 If last glucose was less than 500, may do bedside glucose instead of serum glucose.URINALYSIS W/ [id number] 15:03:00 Test Item Value Reference Range Comments COLOR (BEAKER) (test kwkp=794) Yellow CLARITY (BEAKER) (test ipsx=592) Clear SPECIFIC GRAVITY UA (BEAKER) (test arhh=856) 1.050 1.001-1.035 PH UA (BEAKER) (test gcmn=851) 5.5 5.0-8.0 PROTEIN UA (BEAKER) (test ykcx=509) 50 mg/dL Negative GLUCOSE UA (BEAKER) (test fxzn=734) >1000 mg/dL Negative KETONES UA (BEAKER) (test nlrg=998) Negative Negative BILIRUBIN UA (BEAKER) (test meej=977) Negative Negative BLOOD UA (BEAKER) (test adby=289) Moderate Negative NITRITE UA (BEAKER) (test anzn=859) Negative Negative LEUKOCYTE ESTERASE UA (BEAKER) (test uvdl=874) Negative Negative UROBILINOGEN UA (BEAKER) (test mxwl=855) 0.2 mg/dL 0.2-1.0 RBC UA (BEAKER) (test lcyr=434) 16 /HPF WBC UA (BEAKER) (test rssf=094) 11 /HPF BACTERIA (BEAKER) (test bora=008) Rare MUCUS (BEAKER) (test wcin=5047) Rare SQUAMOUS EPITHELIAL (BEAKER) (test wape=835) 1 /HPF SOURCE(BEAKER) (test rgvf=2777) U/S, RENAL, [id number] 14:36:00Reason for exam:->acute renal failure , hydronephrosisShould [...] MDReport Verified Date/Time: 07/18/2017 14:36:40 Reading Location: [address] Ultrasound Reading Room Electronically signed by: VIRGINIA DIAZ M.D. on 02:36 PMT4, [id number] 14:31:00 Test Item Value Reference Range Comments FREE T4 (BEAKER) (test rhbm=833) 1.13 ng/dL 0.70-1.48 BLOOD GAS, [id number] 14:01:00 Test Item Value Reference Range Comments PH ARTERIAL (BEAKER) (test mkof=932) 7.42 7.35-7.45 PCO2 ARTERIAL (BEAKER) (test wyaz=322) 42 mmHg 35-45 PO2 ARTERIAL (BEAKER) (test ddek=604) 66 mmHg 80-90 O2 SATURATION ARTERIAL (BEAKER) (test jdyu=802) 93.5 % 96.0-97.0 HCO3 ARTERIAL (BEAKER) (test jscd=549) 27 mmol/L 21-29 BASE EXCESS ARTERIAL (BEAKER) (test sgrn=430) 2.1 mmol/L -2.0-3.0 PATIENT TEMPERATURE (BEAKER) (test wjqr=1064) 36.9 C FIO2 (BEAKER) (test aeej=5350) 40.0 % HEMOGLOBIN [id number] 13:57:00 Test Item Value Reference Range Comments HEMOGLOBIN A1C (BEAKER) (test ryuj=858) 9.8 % 4.3-6.1 SODIUM, RANDOM [id number] 13:49:00 Test Item Value Reference Range Comments SODIUM URINE (BEAKER) (test xrzg=308) 22 meq/L Reference Range: No NormalsTSH/FREE T4 IF [id number] 13:49:00 Test Item Value Reference Range Comments THYROID STIMULATING HORMONE (BEAKER) (test 0.27 uIU/mL 0.35-4.94 rdlq=166) POCT-GLUCOSE [id number] 13:47:00 Test Item Value Reference Range Comments POC-GLUCOSE METER (BEAKER) 398 mg/dL 70-110 TESTED AT [facility] [address] (test ahcj=6178) [facility] [address] CREATININE, RANDOM [id number] 13:43:00 Test Item Value Reference Range Comments CREATININE URINE (BEAKER) (test nxfq=377) 85.4 mg/dL Reference Range: No NormalsPROTEIN, RANDOM [id number] 13:43:00 Test Item Value Reference Range Comments PROTEIN, URINE (BEAKER) (test mong=3079) 75 mg/dL 0-14 B-TYPE NATRIURETIC FACTOR (BNP)2017-07-18 13:17:00 Test Item Value Reference Range Comments B-TYPE NATRIURETIC PEPTIDE (BEAKER) (test 1847 pg/mL 0-100 zcmj=435) BASIC METABOLIC [id number] 13:13:00 Test Item Value Reference Range Comments SODIUM (BEAKER) (test 138 meq/L 136-145 adua=370) POTASSIUM (BEAKER) (test 4.8 meq/L 3.5-5.1 orpu=771) CHLORIDE (BEAKER) (test 101 meq/L 98-107 usar=019) CO2 (BEAKER) (test 26 meq/L 22-29 ylic=660) BLOOD UREA NITROGEN 21 mg/dL 7-21 (BEAKER) (test nagw=165) CREATININE (BEAKER) (test 1.62 mg/dL 0.57-1.25 bchg=444) GLUCOSE RANDOM (BEAKER) 527 mg/dL 70-105 (test zibz=422) CALCIUM (BEAKER) (test 8.9 mg/dL 8.4-10.2 swgi=385) EGFR (BEAKER) (test 38 mL/min/1.73 sq m ESTIMATED GFR IS NOT nyop=9248) ACCURATE CREATININE CLEARANCE IN PREDICTING GLOMERULAR FILTRATION RATE. ESTIMATED GFR IS NOT APPLICABLE FOR DIALYSIS PATIENTS. If last glucose was less than 500, may do bedside glucose instead of serum glucose.[id number] 13:12:00 Test Item Value Reference Range Comments MAGNESIUM (BEAKER) (test ctzs=791) 1.9 mg/dL 1.6-2.6 If last glucose was less than 500, may do bedside glucose instead of serum glucose.[id number] 13:12:00 Test Item Value Reference Range Comments LIPASE (BEAKER) (test okig=813) 106 U/L 8-78 If last glucose was less than 500, may do bedside glucose instead of serum glucose.[id number] 13:11:00 Test Item Value Reference Range Comments PHOSPHORUS (BEAKER) (test cqtv=535) 3.3 mg/dL 2.3-4.7 If last glucose was less than 500, may do bedside glucose instead of serum glucose.POCT-GLUCOSE [id number] 12:49:00 Test Item Value Reference Range Comments POC-GLUCOSE METER (BEAKER) 498 mg/dL 70-110 Notified PAULA BERGER/TESTED AT [facility] (test bmhz=9671) [address] [facility] [address] LACTIC ACID, VENOUS, WHOLE [id number] 12:11:00 Test Item Value Reference Range Comments LACTATE BLOOD VENOUS (2) (BEAKER) (test 3.8 mmol/L 0.5-2.2 leqd=9025) Effective 08/06/2015: Units/Reference Range ChangeNew: 0.5-2.2 mmol/L Previous: 5 -20 mg/[id number] 12:10:00 Test Item Value Reference Range Comments PROCALCITONIN (BEAKER) (test jwru=0234) 3.80 ng/mL <0.05 SEPSIS RISK (ng/mL)Low: 0.05-0.50Intermediate: 0.51-2.00High: & gt;=2.01CBC W/PLT COUNT & AUTO [id number] 12:10:00 Test Item Value Reference Range Comments WHITE BLOOD CELL COUNT (BEAKER) (test crxi=828) 11.2 K/ L 3.5-10.5 RED BLOOD CELL COUNT (BEAKER) (test jilj=235) 3.98 M/ L 3.93-5.22 HEMOGLOBIN (BEAKER) (test jlmg=069) 12.0 GM/DL 11.2-15.7 HEMATOCRIT (BEAKER) (test etrw=250) 38.5 % 34.1-44.9 MEAN CORPUSCULAR VOLUME (BEAKER) (test jqsc=776) 96.7 fL 79.4-94.8 MEAN CORPUSCULAR HEMOGLOBIN (BEAKER) (test 30.2 pg 25.6-32.2 gxdk=220) MEAN CORPUSCULAR HEMOGLOBIN CONC (BEAKER) (test 31.2 GM/DL 32.2-35.5 vioi=510) RED CELL DISTRIBUTION WIDTH (BEAKER) (test 13.1 % 11.7-14.4 ugud=277) PLATELET COUNT (BEAKER) (test npcj=753) 222 K/CU MM 150-450 MEAN PLATELET VOLUME (BEAKER) (test utnc=686) 10.2 fL 9.4-12.3 NUCLEATED RED BLOOD CELLS (BEAKER) (test 0 /100 WBC 0-0 sjqh=693) NEUTROPHILS RELATIVE PERCENT (BEAKER) (test 96 % prig=185) LYMPHOCYTES RELATIVE PERCENT (BEAKER) (test 2 % nfbc=091) MONOCYTES RELATIVE PERCENT (BEAKER) (test 2 % jzhv=627) EOSINOPHILS RELATIVE PERCENT (BEAKER) (test 0 % votn=576) BASOPHILS RELATIVE PERCENT (BEAKER) (test 0 % hjpq=635) NEUTROPHILS ABSOLUTE COUNT (BEAKER) (test 10.72 K/ L 1.56-6.13 xhhw=289) LYMPHOCYTES ABSOLUTE COUNT (BEAKER) (test 0.24 K/ L 1.18-3.74 wmyy=990) MONOCYTES ABSOLUTE COUNT (BEAKER) (test 0.22 K/ L 0.24-0.36 hkvl=379) EOSINOPHILS ABSOLUTE COUNT (BEAKER) (test 0.00 K/ L 0.04-0.36 vvod=558) BASOPHILS ABSOLUTE COUNT (BEAKER) (test 0.01 K/ L 0.01-0.08 dapy=030) IMMATURE GRANULOCYTES-RELATIVE PERCENT (BEAKER) 0 % 0-1 (test xeow=3464) BASIC METABOLIC [id number] 11:35:00 Test Item Value Reference Range Comments SODIUM (BEAKER) (test 136 meq/L 136-145 btyg=238) POTASSIUM (BEAKER) (test 4.8 meq/L 3.5-5.1 ixal=418) CHLORIDE (BEAKER) (test 99 meq/L 98-107 alyv=540) CO2 (BEAKER) (test 25 meq/L 22-29 ynan=951) BLOOD UREA NITROGEN 19 mg/dL 7-21 (BEAKER) (test uiud=587) CREATININE (BEAKER) (test 1.61 mg/dL 0.57-1.25 jdfn=672) GLUCOSE RANDOM (BEAKER) 568 mg/dL 70-105 (test edph=962) CALCIUM (BEAKER) (test 8.9 mg/dL 8.4-10.2 msgh=289) EGFR (BEAKER) (test 38 mL/min/1.73 sq m ESTIMATED GFR IS NOT qifc=3574) ACCURATE CREATININE CLEARANCE IN PREDICTING GLOMERULAR FILTRATION RATE. ESTIMATED GFR IS NOT APPLICABLE FOR DIALYSIS PATIENTS. BLOOD GAS, [id number] 10:57:00 Test Item Value Reference Range Comments PH ARTERIAL (BEAKER) (test kcvn=655) 7.36 7.35-7.45 PCO2 ARTERIAL (BEAKER) (test ccnq=627) 47 mmHg 35-45 PO2 ARTERIAL (BEAKER) (test knew=121) 78 mmHg 80-90 O2 SATURATION ARTERIAL (BEAKER) (test ydwz=638) 95.0 % 96.0-97.0 HCO3 ARTERIAL (BEAKER) (test wxby=489) 26 mmol/L 21-29 BASE EXCESS ARTERIAL (BEAKER) (test etav=454) 0.4 mmol/L -2.0-3.0 PATIENT TEMPERATURE (BEAKER) (test hyjg=5591) 37.0 C FIO2 (BEAKER) (test zlgh=9949) 100.0 % RAD, CHEST, 1 VIEW, NON [id number] 10:38:00Reason for exam:->IABP Should this be performed [...] MDReport Verified Date/Time: 07/18/2017 10:38:31 Reading Location: [facility] [address] Radiology Reading Room CBC W/PLT COUNT & AUTO [id number] 10: 01:00 Test Item Value Reference Range Comments WHITE BLOOD CELL COUNT (BEAKER) (test iftc=910) 12.8 K/ L 3.5-10.5 RED BLOOD CELL COUNT (BEAKER) (test oqkv=222) 3.95 M/ L 3.93-5.22 HEMOGLOBIN (BEAKER) (test cbiu=320) 11.9 GM/DL 11.2-15.7 HEMATOCRIT (BEAKER) (test xfpv=752) 38.3 % 34.1-44.9 MEAN CORPUSCULAR VOLUME (BEAKER) (test iwgy=616) 97.0 fL 79.4-94.8 MEAN CORPUSCULAR HEMOGLOBIN (BEAKER) (test 30.1 pg 25.6-32.2 pows=016) MEAN CORPUSCULAR HEMOGLOBIN CONC (BEAKER) (test 31.1 GM/DL 32.2-35.5 jgaw=472) RED CELL DISTRIBUTION WIDTH (BEAKER) (test 13.1 % 11.7-14.4 ysho=683) PLATELET COUNT (BEAKER) (test qkid=559) 231 K/CU MM 150-450 MEAN PLATELET VOLUME (BEAKER) (test gnzf=131) 10.4 fL 9.4-12.3 NUCLEATED RED BLOOD CELLS (BEAKER) (test 0 /100 WBC 0-0 fwkb=202) NEUTROPHILS RELATIVE PERCENT (BEAKER) (test 91 % illu=292) LYMPHOCYTES RELATIVE PERCENT (BEAKER) (test 4 % zkze=114) MONOCYTES RELATIVE PERCENT (BEAKER) (test 4 % bhvw=463) EOSINOPHILS RELATIVE PERCENT (BEAKER) (test 0 % tejo=002) BASOPHILS RELATIVE PERCENT (BEAKER) (test 0 % fehh=954) NEUTROPHILS ABSOLUTE COUNT (BEAKER) (test 11.66 K/ L 1.56-6.13 dydr=333) LYMPHOCYTES ABSOLUTE COUNT (BEAKER) (test 0.53 K/ L 1.18-3.74 ueyv=509) MONOCYTES ABSOLUTE COUNT (BEAKER) (test 0.49 K/ L 0.24-0.36 byqm=825) EOSINOPHILS ABSOLUTE COUNT (BEAKER) (test 0.01 K/ L 0.04-0.36 pogk=410) BASOPHILS ABSOLUTE COUNT (BEAKER) (test 0.03 K/ L 0.01-0.08 alxc=149) IMMATURE GRANULOCYTES-RELATIVE PERCENT (BEAKER) 0 % 0-1 (test dncf=9362) COMPREHENSIVE METABOLIC [id number] 09:38:00 Test Item Value Reference Range Comments TOTAL PROTEIN (BEAKER) 6.7 gm/dL 6.0-8.3 Specimen slightly (test sjvw=083) hemolyzed ALBUMIN (BEAKER) (test 3.5 g/dL 3.5-5.0 Specimen slightly rrst=5585) hemolyzed ALKALINE PHOSPHATASE 70 U/L 40-150 (BEAKER) (test orvc=883) BILIRUBIN TOTAL (BEAKER) 0.6 mg/dL 0.2-1.2 Specimen slightly (test ohfc=227) hemolyzed SODIUM (BEAKER) (test 134 meq/L 136-145 axjq=044) POTASSIUM (BEAKER) (test 4.7 meq/L 3.5-5.1 Specimen slightly eayz=327) hemolyzed CHLORIDE (BEAKER) (test 98 meq/L 98-107 woez=036) CO2 (BEAKER) (test 25 meq/L 22-29 vvjw=093) BLOOD UREA NITROGEN 19 mg/dL 7-21 (BEAKER) (test dmyr=133) CREATININE (BEAKER) (test 1.57 mg/dL 0.57-1.25 Specimen slightly rtxp=390) hemolyzed GLUCOSE RANDOM (BEAKER) 652 mg/dL 70-105 (test leub=422) CALCIUM (BEAKER) (test 8.7 mg/dL 8.4-10.2 ghuj=283) AST (SGOT) (BEAKER) (test 343 U/L 5-34 Specimen slightly oole=974) hemolyzed ALT (SGPT) (BEAKER) (test 89 U/L 6-55 Specimen slightly ozei=897) hemolyzed EGFR (BEAKER) (test 39 mL/min/1.73 sq m ESTIMATED GFR IS NOT piot=0962) ACCURATE CREATININE CLEARANCE IN PREDICTING GLOMERULAR FILTRATION RATE. ESTIMATED GFR IS NOT APPLICABLE FOR DIALYSIS PATIENTS. [id number] 09:09:00 Test Item Value Reference Range Comments ACTIVATED CLOTTING TIME 252 sec TESTED AT [facility] [address] [facility] (BEAKER) (test bzem=757) [place] [address] PROTHROMBIN [id number] 09:01:00 Test Item Value Reference Range Comments PROTIME (BEAKER) (test rahq=767) 18.3 seconds 11.7-14.7 INR (BEAKER) (test tobe=520) 1.5 <=5.9 RECOMMENDED COUMADIN/WARFARIN INR THERAPY RANGESSTANDARD DOSE: 2.0 - 3.0 Includes: PROPHYLAXIS forvenous thrombosis, systemic embolization; TREATMENT for venous thrombosis and/or pulmonary embolus.HIGH RISK: Target INR is 2.5-3.5 for patients with mechanical heart valves.[id number] 08:09:00 Test Item Value Reference Range Comments ACTIVATED CLOTTING TIME 213 sec TESTED AT [address] [facility] (test bxjq=210) [place] [address] [id number] 08:09:00 Test Item Value Reference Range Comments ACTIVATED CLOTTING TIME 263 sec TESTED AT [address] ([facility]) (test iust=926) [place] [address] BLOOD GAS, [id number] 07:50:00 Test Item Value Reference Range Comments PH ARTERIAL (BEAKER) (test rllf=987) 7.20 7.35-7.45 PCO2 ARTERIAL (BEAKER) (test sqtp=868) 65 mmHg 35-45 PO2 ARTERIAL (BEAKER) (test itde=096) 133 mmHg 80-90 O2 SATURATION ARTERIAL (BEAKER) (test bwvj=939) 98.1 % 96.0-97.0 HCO3 ARTERIAL (BEAKER) (test shtb=353) 25 mmol/L 21-29 BASE EXCESS ARTERIAL (BEAKER) (test vvcx=138) -4.3 mmol/L -2.0-3.0 PATIENT TEMPERATURE (BEAKER) (test onru=5436) 36.0 C FIO2 (BEAKER) (test emyg=6307) 100.0 % POCT-GLUCOSE [id number] 12:27:00 Test Item Value Reference Range Comments POC-GLUCOSE METER (BEAKER) 156 mg/dL 70-110 TESTED AT [address] (test pvbp=4326) [place] [address] BASIC METABOLIC [id number] 05:45:00 Test Item Value Reference Range Comments SODIUM (BEAKER) (test 141 meq/L 136-145 qwfg=893) POTASSIUM (BEAKER) (test 4.1 meq/L 3.5-5.1 fbja=010) CHLORIDE (BEAKER) (test 106 meq/L 98-107 octo=795) CO2 (BEAKER) (test 26 meq/L 22-29 qwyc=579) BLOOD UREA NITROGEN 11 mg/dL 7-21 (BEAKER) (test tmaz=734) CREATININE (BEAKER) (test 0.83 mg/dL 0.57-1.25 znyi=589) GLUCOSE RANDOM (BEAKER) 139 mg/dL 70-105 (test wzxc=577) CALCIUM (BEAKER) (test 8.5 mg/dL 8.4-10.2 ltgo=585) EGFR (BEAKER) (test 83 mL/min/1.73 sq m ESTIMATED GFR IS NOT rkhj=4499) ACCURATE CREATININE CLEARANCE IN PREDICTING GLOMERULAR FILTRATION RATE. ESTIMATED GFR IS NOT APPLICABLE FOR DIALYSIS PATIENTS. POCT-GLUCOSE [id number] 21:10:00 Test Item Value Reference Range Comments POC-GLUCOSE METER (BEAKER) 103 mg/dL 70-110 TESTED AT [address] (test spqt=5587) [place] [address] POCT-GLUCOSE [id number] 17:51:00 Test Item Value Reference Range Comments POC-GLUCOSE METER (BEAKER) 138 mg/dL 70-110 TESTED AT [address] (test jtbm=5023) [place] [address] POCT-GLUCOSE [id number] 12:45:00 Test Item Value Reference Range Comments POC-GLUCOSE METER (BEAKER) 294 mg/dL 70-110 TESTED AT [address] (test awzf=2163) [place] [address] CBC WITH PLATELET COUNT + MANUAL [id number] 07:04:00 Test Item Value Reference Range Comments WHITE BLOOD CELL COUNT (BEAKER) (test lvvu=746) 10.7 K/ L 4.0-10.0 RED BLOOD CELL COUNT (BEAKER) (test wajc=129) 3.91 M/ L 4.00-5.00 HEMOGLOBIN (BEAKER) (test tdoy=132) 12.9 GM/DL 12.0-15.0 HEMATOCRIT (BEAKER) (test mafn=227) 39.0 % 36.0-45.0 MEAN CORPUSCULAR VOLUME (BEAKER) (test jwht=127) 99.6 fL 82.0-99.0 MEAN CORPUSCULAR HEMOGLOBIN (BEAKER) (test 32.9 pg 27.0-33.0 iehw=596) MEAN CORPUSCULAR HEMOGLOBIN CONC (BEAKER) (test 33.0 GM/DL 32.0-36.0 egha=928) RED CELL DISTRIBUTION WIDTH (BEAKER) (test 12.8 % 10.3-14.2 fpth=857) PLATELET COUNT (BEAKER) (test fvak=873) 251 K/CU MM 150-430 MEAN PLATELET VOLUME (BEAKER) (test pscc=265) 8.1 fL 6.5-10.5 NUCLEATED RED BLOOD CELLS (BEAKER) (test 0 /100 WBC 0-0 hpxw=371) NEUTROPHILS RELATIVE PERCENT (BEAKER) (test 80 % glqq=787) LYMPHOCYTES RELATIVE PERCENT (BEAKER) (test 14 % uvog=142) MONOCYTES RELATIVE PERCENT (BEAKER) (test 6 % dapu=373) EOSINOPHILS RELATIVE PERCENT (BEAKER) (test 0 % htxf=138) BASOPHILS RELATIVE PERCENT (BEAKER) (test 0 % cdyv=292) NEUTROPHILS ABSOLUTE COUNT (BEAKER) (test 8.55 K/ L 1.80-8.00 hnrt=845) LYMPHOCYTES ABSOLUTE COUNT (BEAKER) (test 1.46 K/ L 1.48-4.50 tubm=774) MONOCYTES ABSOLUTE COUNT (BEAKER) (test 0.60 K/ L 0.00-1.30 ikus=901) EOSINOPHILS ABSOLUTE COUNT (BEAKER) (test 0.05 K/ L 0.00-0.50 xcbk=372) BASOPHILS ABSOLUTE COUNT (BEAKER) (test 0.02 K/ L 0.00-0.20 pnyq=738) 0.00(MANUAL DIFFERENTIAL)2016-06-14 07:04:00 Test Item Value Reference Range Comments TOTAL COUNTED (BEAKER) (test yfzd=5687) PLT MORPHOLOGY (BEAKER) (test mwts=109) Normal RBC MORPHOLOGY (BEAKER) (test obwg=340) Normal ATYPICAL LYMPHS(BEAKER) (test egim=4361) Present BASIC METABOLIC [id number] 05:05:00 Test Item Value Reference Range Comments SODIUM (BEAKER) (test 140 meq/L 136-145 ijrf=606) POTASSIUM (BEAKER) (test 3.8 meq/L 3.5-5.1 mtea=385) CHLORIDE (BEAKER) (test 107 meq/L 98-107 zrft=068) CO2 (BEAKER) (test 26 meq/L 22-29 mijm=154) BLOOD UREA NITROGEN 13 mg/dL 7-21 (BEAKER) (test rexw=884) CREATININE (BEAKER) (test 0.80 mg/dL 0.57-1.25 udvh=527) GLUCOSE RANDOM (BEAKER) 177 mg/dL 70-105 (test fvub=963) CALCIUM (BEAKER) (test 8.3 mg/dL 8.4-10.2 wfgp=957) EGFR (BEAKER) (test 86 mL/min/1.73 sq m ESTIMATED GFR IS NOT aswr=3986) ACCURATE CREATININE CLEARANCE IN PREDICTING GLOMERULAR FILTRATION RATE. ESTIMATED GFR IS NOT APPLICABLE FOR DIALYSIS PATIENTS. [id number] 04:48:00 Test Item Value Reference Range Comments PROTIME (BEAKER) (test lpde=658) 13.0 seconds 11.7-14.7 INR (BEAKER) (test pbsl=294) 1.0 <=5.9 PARTIAL THROMBOPLASTIN TIME (BEAKER) (test 31.8 seconds 22.5-36.0 tpym=707) RECOMMENDED COUMADIN/WARFARIN INR THERAPY RANGESSTANDARD DOSE: 2.0 - 3.0 Includes: PROPHYLAXIS forvenous thrombosis, systemic embolization; TREATMENT for venous thrombosis and/or pulmonary embolus.HIGH RISK: Target INR is 2.5-3.5 for patients with mechanical heart valves.POCT-GLUCOSE [id number] 22:11:00 Test Item Value Reference Range Comments POC-GLUCOSE METER (BEAKER) 200 mg/dL 70-110 TESTED AT [facility] [address] [facility] (test gxue=2651) [facility] [address] POCT-GLUCOSE [id number] 17:13:00 Test Item Value Reference Range Comments POC-GLUCOSE METER (BEAKER) 225 mg/dL 70-110 TESTED AT [facility] [address] [facility] (test nndd=5535) [facility] [address] POCT-GLUCOSE [id number] 12:22:00 Test Item Value Reference Range Comments POC-GLUCOSE METER (BEAKER) 309 mg/dL 70-110 Notified PAULA BERGER/TESTED AT [facility] (test gnif=2661) [address] [facility] [address] URINALYSIS W/ [id number] 12:09:00 Test Item Value Reference Range Comments COLOR (BEAKER) (test lycu=512) Yellow CLARITY (BEAKER) (test fcca=477) Clear SPECIFIC GRAVITY UA (BEAKER) (test pyao=500) 1.035 1.001-1.035 PH UA (BEAKER) (test heok=773) 5.0 5.0-8.0 PROTEIN UA (BEAKER) (test vxjt=731) Negative Negative GLUCOSE UA (BEAKER) (test laaq=539) 150 mg/dL Negative KETONES UA (BEAKER) (test qqhq=911) Negative Negative BILIRUBIN UA (BEAKER) (test mctf=766) Negative Negative BLOOD UA (BEAKER) (test nlvp=913) Small Negative NITRITE UA (BEAKER) (test qkiz=720) Negative Negative LEUKOCYTE ESTERASE UA (BEAKER) (test xxzo=405) Negative Negative UROBILINOGEN UA (BEAKER) (test xcep=946) 0.2 mg/dL 0.2-1.0 RBC UA (BEAKER) (test jgpz=166) 6 /HPF WBC UA (BEAKER) (test zfhz=841) 1 /HPF MUCUS (BEAKER) (test dnag=8190) Rare SQUAMOUS EPITHELIAL (BEAKER) (test buca=964) 6 /HPF HYALINE CASTS (BEAKER) (test dlqp=508) 2 /LPF SOURCE(BEAKER) (test kztg=4293) POCT-GLUCOSE [id number] 07:58:00 Test Item Value Reference Range Comments POC-GLUCOSE METER (BEAKER) 236 mg/dL 70-110 TESTED AT [place] [address] [address] (test chqr=8558) [facility] [address] BASIC METABOLIC [id number] 04:10:00 Test Item Value Reference Range Comments SODIUM (BEAKER) (test 138 meq/L 136-145 nspn=573) POTASSIUM (BEAKER) (test 4.2 meq/L 3.5-5.1 zdqk=949) CHLORIDE (BEAKER) (test 107 meq/L 98-107 omfm=709) CO2 (BEAKER) (test 22 meq/L 22-29 kdkv=858) BLOOD UREA NITROGEN 20 mg/dL 7-21 (BEAKER) (test jhdm=721) CREATININE (BEAKER) (test 1.00 mg/dL 0.57-1.25 bttu=539) GLUCOSE RANDOM (BEAKER) 246 mg/dL 70-105 (test cjae=741) CALCIUM (BEAKER) (test 8.8 mg/dL 8.4-10.2 rpwy=454) EGFR (BEAKER) (test 67 mL/min/1.73 sq m ESTIMATED GFR IS NOT gtjo=5089) ACCURATE CREATININE CLEARANCE IN PREDICTING GLOMERULAR FILTRATION RATE. ESTIMATED GFR IS NOT APPLICABLE FOR DIALYSIS PATIENTS. [id number] 04:03:00 Test Item Value Reference Range Comments PROTIME (BEAKER) (test bcxj=194) 12.8 seconds 11.7-14.7 INR (BEAKER) (test lanz=001) 1.0 <=5.9 PARTIAL THROMBOPLASTIN TIME (BEAKER) (test 29.6 seconds 22.5-36.0 hrwi=492) RECOMMENDED COUMADIN/WARFARIN INR THERAPY RANGESSTANDARD DOSE: 2.0 - 3.0 Includes: PROPHYLAXIS forvenous thrombosis, systemic embolization; TREATMENT for venous thrombosis and/or pulmonary embolus.HIGH RISK: Target INR is 2.5-3.5 for patients with mechanical heart valves.CBC WITH PLATELET COUNT + MANUAL [id number] 03:58:00 Test Item Value Reference Range Comments WHITE BLOOD CELL COUNT (BEAKER) (test jtcn=680) 14.3 K/ L 4.0-10.0 RED BLOOD CELL COUNT (BEAKER) (test cwmp=972) 4.03 M/ L 4.00-5.00 HEMOGLOBIN (BEAKER) (test ubsc=447) 13.1 GM/DL 12.0-15.0 HEMATOCRIT (BEAKER) (test haez=307) 39.7 % 36.0-45.0 MEAN CORPUSCULAR VOLUME (BEAKER) (test wmxd=633) 98.5 fL 82.0-99.0 MEAN CORPUSCULAR HEMOGLOBIN (BEAKER) (test 32.6 pg 27.0-33.0 bhhq=539) MEAN CORPUSCULAR HEMOGLOBIN CONC (BEAKER) (test 33.1 GM/DL 32.0-36.0 zdax=484) RED CELL DISTRIBUTION WIDTH (BEAKER) (test 12.9 % 10.3-14.2 leod=612) PLATELET COUNT (BEAKER) (test emwt=183) 271 K/CU MM 150-430 MEAN PLATELET VOLUME (BEAKER) (test fsfu=661) 7.7 fL 6.5-10.5 NUCLEATED RED BLOOD CELLS (BEAKER) (test 0 /100 WBC 0-0 cbfo=950) NEUTROPHILS RELATIVE PERCENT (BEAKER) (test 87 % tozt=028) LYMPHOCYTES RELATIVE PERCENT (BEAKER) (test 7 % auac=091) MONOCYTES RELATIVE PERCENT (BEAKER) (test 6 % armp=190) EOSINOPHILS RELATIVE PERCENT (BEAKER) (test 0 % dyyt=528) BASOPHILS RELATIVE PERCENT (BEAKER) (test 0 % gvpc=831) NEUTROPHILS ABSOLUTE COUNT (BEAKER) (test 12.40 K/ L 1.80-8.00 hngk=482) LYMPHOCYTES ABSOLUTE COUNT (BEAKER) (test 1.06 K/ L 1.48-4.50 otrw=804) MONOCYTES ABSOLUTE COUNT (BEAKER) (test 0.81 K/ L 0.00-1.30 ehwn=972) EOSINOPHILS ABSOLUTE COUNT (BEAKER) (test 0.01 K/ L 0.00-0.50 vwtc=944) BASOPHILS ABSOLUTE COUNT (BEAKER) (test 0.03 K/ L 0.00-0.20 pjlm=078) [id number]-GLUCOSE [id number] 22:17:00 Test Item Value Reference Range Comments POC-GLUCOSE METER (BEAKER) 260 mg/dL 70-110 TESTED AT [address] (test cuao=1657) [facility] [id number] POCT-GLUCOSE [id number] 12:11:00 Test Item Value Reference Range Comments POC-GLUCOSE METER (BEAKER) 278 mg/dL 70-110 TESTED AT [address] (test lfhg=9726) [facility] [address] HEMOGLOBIN [id number] 10:46:00 Test Item Value Reference Range Comments HEMOGLOBIN A1C (BEAKER) (test nyzc=891) 9.7 % 4.3-6.1 DC\S\Delta Check\S\NONEPOCT-GLUCOSE [id number] 07:15:00 Test Item Value Reference Range Comments POC-GLUCOSE METER (BEAKER) 283 mg/dL 70-110 TESTED AT [facility] [address] (test bmzc=1480) [facility] [address] BASIC METABOLIC [id number] 04:43:00 Test Item Value Reference Range Comments SODIUM (BEAKER) (test 136 meq/L 136-145 twiw=518) POTASSIUM (BEAKER) (test 4.0 meq/L 3.5-5.1 merk=485) CHLORIDE (BEAKER) (test 102 meq/L 98-107 zytx=103) CO2 (BEAKER) (test 27 meq/L 22-29 coft=008) BLOOD UREA NITROGEN 18 mg/dL 7-21 (BEAKER) (test tivj=521) CREATININE (BEAKER) (test 0.95 mg/dL 0.57-1.25 awft=245) GLUCOSE RANDOM (BEAKER) 256 mg/dL 70-105 (test mlgj=469) CALCIUM (BEAKER) (test 9.0 mg/dL 8.4-10.2 zvge=411) EGFR (BEAKER) (test 71 mL/min/1.73 sq m ESTIMATED GFR IS NOT nsdw=1589) ACCURATE CREATININE CLEARANCE IN PREDICTING GLOMERULAR FILTRATION RATE. ESTIMATED GFR IS NOT APPLICABLE FOR DIALYSIS PATIENTS. CBC WITH PLATELET COUNT + MANUAL [id number] 04:28:00 Test Item Value Reference Range Comments WHITE BLOOD CELL COUNT (BEAKER) (test fapl=101) 11.6 K/ L 4.0-10.0 RED BLOOD CELL COUNT (BEAKER) (test tbsc=290) 4.15 M/ L 4.00-5.00 HEMOGLOBIN (BEAKER) (test twrn=253) 13.3 GM/DL 12.0-15.0 HEMATOCRIT (BEAKER) (test rdua=312) 40.5 % 36.0-45.0 MEAN CORPUSCULAR VOLUME (BEAKER) (test hzqm=459) 97.6 fL 82.0-99.0 MEAN CORPUSCULAR HEMOGLOBIN (BEAKER) (test 32.1 pg 27.0-33.0 wdbe=017) MEAN CORPUSCULAR HEMOGLOBIN CONC (BEAKER) (test 32.9 GM/DL 32.0-36.0 getw=020) RED CELL DISTRIBUTION WIDTH (BEAKER) (test 12.7 % 10.3-14.2 rxuk=280) PLATELET COUNT (BEAKER) (test lztj=468) 263 K/CU MM 150-430 MEAN PLATELET VOLUME (BEAKER) (test xdkj=631) 8.2 fL 6.5-10.5 NUCLEATED RED BLOOD CELLS (BEAKER) (test 0 /100 WBC 0-0 csrn=327) NEUTROPHILS RELATIVE PERCENT (BEAKER) (test 90 % pzrj=104) LYMPHOCYTES RELATIVE PERCENT (BEAKER) (test 8 % yhvq=520) MONOCYTES RELATIVE PERCENT (BEAKER) (test 2 % srrk=947) EOSINOPHILS RELATIVE PERCENT (BEAKER) (test 0 % pkfa=002) BASOPHILS RELATIVE PERCENT (BEAKER) (test 0 % hsct=984) NEUTROPHILS ABSOLUTE COUNT (BEAKER) (test 10.40 K/ L 1.80-8.00 gexx=367) LYMPHOCYTES ABSOLUTE COUNT (BEAKER) (test 0.95 K/ L 1.48-4.50 pyun=456) MONOCYTES ABSOLUTE COUNT (BEAKER) (test 0.20 K/ L 0.00-1.30 fkvb=754) EOSINOPHILS ABSOLUTE COUNT (BEAKER) (test 0.02 K/ L 0.00-0.50 iewc=485) BASOPHILS ABSOLUTE COUNT (BEAKER) (test 0.02 K/ L 0.00-0.20 btcr=749) 0.00PT/[id number] 04:25:00 Test Item Value Reference Range Comments PROTIME (BEAKER) (test yait=676) 13.7 seconds 11.7-14.7 INR (BEAKER) (test beyq=165) 1.1 <=5.9 PARTIAL THROMBOPLASTIN TIME (BEAKER) (test 32.8 seconds 22.5-36.0 rzik=084) RECOMMENDED COUMADIN/WARFARIN INR THERAPY RANGESSTANDARD DOSE: 2.0 - 3.0 Includes: PROPHYLAXIS forvenous thrombosis, systemic embolization; TREATMENT for venous thrombosis and/or pulmonary embolus.HIGH RISK: Target INR is 2.5-3.5 for patients with mechanical heart valves.POCT-GLUCOSE [id number] 02:47:00 Test Item Value Reference Range Comments POC-GLUCOSE METER (BEAKER) 278 mg/dL 70-110 TESTED AT [facility] [address] [facility] (test zaqt=1058) [facility] [address] POCT-GLUCOSE [id number] 22:12:00 Test Item Value Reference Range Comments POC-GLUCOSE METER (BEAKER) 258 mg/dL 70-110 TESTED AT [facility] [address] (test flgh=0162) [facility] [address] [id number] 15:44:00 Test Item Value Reference Range Comments MAGNESIUM (BEAKER) (test 2.1 mg/dL 1.6-2.6 Specimen slightly hemolyzed frgm=680) [id number] 15:44:00 Test Item Value Reference Range Comments PHOSPHORUS (BEAKER) (test 2.9 mg/dL 2.3-4.7 Specimen slightly hemolyzed bldn=978) BASIC METABOLIC [id number] 15:44:00 Test Item Value Reference Range Comments SODIUM (BEAKER) (test 137 meq/L 136-145 uxgr=865) POTASSIUM (BEAKER) (test 4.4 meq/L 3.5-5.1 Specimen slightly pkcm=026) hemolyzed CHLORIDE (BEAKER) (test 99 meq/L 98-107 sygi=543) CO2 (BEAKER) (test 27 meq/L 22-29 ypkx=093) BLOOD UREA NITROGEN 13 mg/dL 7-21 (BEAKER) (test adfh=211) CREATININE (BEAKER) (test 0.96 mg/dL 0.57-1.25 Specimen slightly ifwo=307) hemolyzed GLUCOSE RANDOM (BEAKER) 250 mg/dL 70-105 (test cmzb=906) CALCIUM (BEAKER) (test 9.6 mg/dL 8.4-10.2 pnhc=777) EGFR (BEAKER) (test 70 mL/min/1.73 sq m ESTIMATED GFR IS NOT ztax=3891) ACCURATE CREATININE CLEARANCE IN PREDICTING GLOMERULAR FILTRATION RATE. ESTIMATED GFR IS NOT APPLICABLE FOR DIALYSIS PATIENTS. CBC WITH PLATELET COUNT + MANUAL [id number] 15:39:00 Test Item Value Reference Range Comments WHITE BLOOD CELL COUNT (BEAKER) (test ptyw=327) 9.5 K/ L 4.0-10.0 RED BLOOD CELL COUNT (BEAKER) (test bhcr=334) 4.18 M/ L 4.00-5.00 HEMOGLOBIN (BEAKER) (test aqew=522) 14.0 GM/DL 12.0-15.0 HEMATOCRIT (BEAKER) (test tkyl=518) 40.7 % 36.0-45.0 MEAN CORPUSCULAR VOLUME (BEAKER) (test dqql=121) 97.3 fL 82.0-99.0 MEAN CORPUSCULAR HEMOGLOBIN (BEAKER) (test 33.4 pg 27.0-33.0 sxrm=209) MEAN CORPUSCULAR HEMOGLOBIN CONC (BEAKER) (test 34.3 GM/DL 32.0-36.0 osjv=724) RED CELL DISTRIBUTION WIDTH (BEAKER) (test 12.6 % 10.3-14.2 davp=329) PLATELET COUNT (BEAKER) (test dqta=550) 253 K/CU MM 150-430 MEAN PLATELET VOLUME (BEAKER) (test utbj=331) 8.1 fL 6.5-10.5 NUCLEATED RED BLOOD CELLS (BEAKER) (test 0 /100 WBC 0-0 moyt=018) NEUTROPHILS RELATIVE PERCENT (BEAKER) (test 91 % oqkp=734) LYMPHOCYTES RELATIVE PERCENT (BEAKER) (test 8 % qfwr=345) MONOCYTES RELATIVE PERCENT (BEAKER) (test 1 % oszv=481) EOSINOPHILS RELATIVE PERCENT (BEAKER) (test 0 % hjyx=987) BASOPHILS RELATIVE PERCENT (BEAKER) (test 0 % bmwp=873) NEUTROPHILS ABSOLUTE COUNT (BEAKER) (test 8.66 K/ L 1.80-8.00 kfyx=548) LYMPHOCYTES ABSOLUTE COUNT (BEAKER) (test 0.78 K/ L 1.48-4.50 fdhl=286) MONOCYTES ABSOLUTE COUNT (BEAKER) (test 0.07 K/ L 0.00-1.30 pqcf=311) EOSINOPHILS ABSOLUTE COUNT (BEAKER) (test 0.01 K/ L 0.00-0.50 gjww=458) BASOPHILS ABSOLUTE COUNT (BEAKER) (test 0.01 K/ L 0.00-0.20 jhhi=650) [id number] 15:39:00 Test Item Value Reference Range Comments PROTIME (BEAKER) (test vaci=703) 12.7 seconds 11.7-14.7 INR (BEAKER) (test vkwy=302) 1.0 <=5.9 PARTIAL THROMBOPLASTIN TIME (BEAKER) (test 32.8 seconds 22.5-36.0 fafh=753) RECOMMENDED COUMADIN/WARFARIN INR THERAPY RANGESSTANDARD DOSE: 2.0 - 3.0 Includes: PROPHYLAXIS forvenous thrombosis, systemic embolization; TREATMENT for venous thrombosis and/or pulmonary embolus.HIGH RISK: Target INR is 2.5-3.5 for patients with mechanical heart valves.
--- NOTE | 2018-08-05 23:00 | ER ---
Nurse's Notes [facility] Name: Christa Ayala Age: 72 yrs Sex: Female : 1945 Arrival Date: 08/05/2018 Time: 18:35 Bed 4 Private MD: Diagnosis: Encounter for adjustment and management of vascular access device-PICC line insertion Presentation: 08/05 18:36 Presenting complaint: EMS states: 2 hours ago while changing shirt. Pt accidentally ca1 removed PICC line for BP meds. Pt is on life pack/vest for 2 weeks now and is awaiting pacemaker. BP 149/88, CO 85, RR 24 shallow, O2 sat 100% at 3LPM. Transition of care: patient was not received from another setting of care. Onset of symptoms was August 05, 2018. Risk Assessment: Do you want to hurt yourself or someone else? Patient reports no desire to harm self or others. Initial Sepsis Screen: Does the patient meet any 2 criteria? No. Patient's initial sepsis screen is negative. Does the patient have a suspected source of infection? No. Patient's initial sepsis screen is negative. Care prior to arrival: None. 18:36 Method Of Arrival: EMS: [facility] ca1 18:36 Acuity: SONYA 3 ca1 Triage Assessment: 18:43 General: Appears in no apparent distress. ill, Behavior is calm, cooperative, ca1 appropriate for age. Pain: Denies pain. Historical: - Allergies: 18:43 Codeine; ca1 18:43 Iodine; ca1 - PMHx: 18:43 CHF; COPD; Diabetes - NIDDM; Emphysema; enlarged aorta; Hypertension; Myocardial ca1 infarction; - Immunization history:: Flu vaccine is up to date. - Social history:: Smoking status: Patient/guardian denies using tobacco. - Ebola Screening: : No symptoms or risks identified at this time. Screenin:43 Abuse screen: Denies threats or abuse. Denies injuries from another. Nutritional ca1 screening: No deficits noted. Tuberculosis screening: No symptoms or risk factors identified. Fall Risk Ambulatory Aid- Crutches/Cane/Walker (15 pts). Assessment: 18:43 General: Appears in no apparent distress. ill, Behavior is calm, cooperative, ca1 appropriate for age. General: Pt with life vest. . Pain: Denies pain. Neuro: Level of Consciousness is awake, alert, obeys commands, Oriented to person, place, time, situation. Cardiovascular: Heart tones S1 S2 present Capillary refill < 3 seconds Patient's skin is warm and dry. Respiratory: Airway is patent Respiratory effort is even, unlabored, Respiratory pattern is regular, symmetrical, Breath sounds are clear bilaterally. GI: GI: Abdomen is flat, non-distended, Bowel sounds present X 4 quads. Abd is soft and non tender X 4 quads. : No deficits noted. No signs and/or symptoms were reported regarding the genitourinary system. EENT: No deficits noted. No signs and/or symptoms were reported regarding the EENT system. Derm: Skin is intact, is healthy with good turgor, Skin is pink, warm \T\ dry. Musculoskeletal: Circulation, motion, and sensation intact. Capillary refill < 3 seconds. 19:58 Reassessment: Patient appears in no apparent distress at this time. Patient is alert, ca1 oriented x 3, equal unlabored respirations, skin warm/dry/pink. Old PICC line insertion dressed and cleaned. Site not bleeding. No redness, swelling, or pain. 20:00 Reassessment: spoke with Isela from [facility] who states that they cannot fc come to hospital and assist pt with restart of her infusion pump. I will contact company if need. 21:15 Reassessment: PICC line triple lumen placed to right brachial vein on first attempt. fc Sterile procedure used. Time out performed prior to insertion. Length of line 40 cm and circumf. was 24 cm. 21:30 Reassessment: Xray obtained for line placement. fc 21:56 Reassessment: Patient and/or family updated on plan of care and expected duration. Pain ea level reassessed. Pt resting with eyes closed, respirations even and unlabored. Chest expansions even and symmetrical. 22:10 Reassessment: PICC pulled out 3 cm per order of Dr Sanchez. Dressing removed and PICC re fc sutured at 3 cm. Some noted bleeding at the site. Surgicel place at insertion site. Once Tegaderm was placed on site kayy wrap was placed over it. 22:20 Reassessment: spoke with Dr Sanchez and Douglas HODGES. Ok to restart Milrinone infusion with fc help of family who know how to use infusion pump. 23:09 Reassessment: Patient and/or family updated on plan of care and expected duration. Pain ea level reassessed. Patient is alert, oriented x 3, equal unlabored respirations, skin warm/dry/pink. Discharge instructions given to patient and family, verbalized the understanding of instruction. Pt left ED via wheelchair accompanied by family. Tolerating well. 23:11 Reassessment: Notified Isela MITCHELL with [facility] that pt needed follow up fc tomorrow for dressing change and infusion check. Vital Signs: 18:43 BP 149 / 93; Pulse 85; Resp 22 S; Temp 97.9(O); Pulse Ox 100% on 2.5 lpm NC; Weight ca1 56.7 kg; Height 5 ft. 6 in. (167.64 cm); Pain 0/10; 19:30 BP 140 / 88; Pulse 87; Resp 19; Pulse Ox 99% on 2.5 lpm NC; ca1 20:00 BP 132 / 73; Pulse 88; Resp 16; Pulse Ox 97% on 2 lpm NC; ea 21:00 BP 149 / 88; Pulse 90; Resp 18; Pulse Ox 98% on R/A; ea 22:00 BP 149 / 94; Pulse 92; Resp 18; Pulse Ox 94% on 2 lpm NC; ea 23:00 BP 151 / 100; Pulse 92; Resp 18; Temp 98.0; Pulse Ox 96% on 2 lpm NC; Pain 0/10; fc 18:43 Body Mass Index 20.18 (56.70 kg, 167.64 cm) ca1 ED Course: 18:35 Patient arrived in ED. ca1 18:40 Triage completed. ca1 18:43 Douglas Paniagua NP is PHCP. pm1 18:43 Kings Vega MD is Attending Physician. pm1 18:43 Arm band placed on right wrist. ca1 18:43 Patient has correct armband on for positive identification. Placed in gown. Bed in low ca1 position. Call light in reach. Side rails up X 1. Pulse ox on. NIBP on. Warm blanket given. 19:08 Vanessa Orosco RN is Primary Nurse. ca1 20:09 Report given to PAULA Hancock. ca1 21:20 Chest Single View XRAY In Process Unspecified. EDMS 23:03 No provider procedures requiring assistance completed. Patient did not have IV access ea during this emergency room visit. Administered Medications: No medications were administered Outcome: 22:59 Discharge ordered by . pm1 23:04 Discharged to home via wheelchair, with family. ea 23:04 Condition: stable 23:04 Discharge instructions given to patient, Instructed on discharge instructions, follow up and referral plans. Demonstrated understanding of instructions, follow-up care. 23:14 Patient left the ED. fc Signatures: Dispatcher [employer] EDWV Mirna Delacruz RN RN Douglas Paniagua, DONOR RECRUITER DONOR RECRUITER pm1 Karisas Liu RN RN Vanessa Cohen RN RN ca1
--- NOTE | 2018-08-05 23:01 | EDPHYS ---
Physician Documentation [facility] Name: Christa Ayala Age: 72 yrs Sex: Female : 1945 Arrival Date: 08/05/2018 Time: 18:35 Bed 4 Private MD: ED Physician Kings Vega HPI: 08/05 19:06 This 72 yrs old Black Female presents to ER via EMS with complaints of accidental PICC pm1 line removal. 19:06 Patient was changing her clothes and accidentally pulled out her PICC line. . Onset: pm1 The symptoms/episode began/occurred just prior to arrival. Severity of symptoms: in the emergency department the symptoms are unchanged Pain is currently a 0 / 10. The patient has not experienced similar symptoms in the past. Patient is getting blood pressure medications through her PICC line. Patient has a life vest and is pending placement of defibrillator. 19:06 Patient without any other complaints except for accidental PICC line removal. pm1 Historical: - Allergies: 18:43 Codeine; ca1 18:43 Iodine; ca1 - PMHx: 18:43 CHF; COPD; Diabetes - NIDDM; Emphysema; enlarged aorta; Hypertension; Myocardial ca1 infarction; - Immunization history:: Flu vaccine is up to date. - Social history:: Smoking status: Patient/guardian denies using tobacco. - Ebola Screening: : No symptoms or risks identified at this time. ROS: 19:06 Constitutional: Negative for fever, chills, and weight loss, Eyes: Negative for injury, pm1 pain, redness, and discharge, ENT: Negative for injury, pain, and discharge, Neck: Negative for injury, pain, and swelling, Cardiovascular: Negative for chest pain, palpitations, and edema, Respiratory: Negative for shortness of breath, cough, wheezing, and pleuritic chest pain, Abdomen/GI: Negative for abdominal pain, nausea, vomiting, diarrhea, and constipation, Back: Negative for injury and pain, MS/Extremity: Negative for injury and deformity, Skin: Negative for injury, rash, and discoloration, Neuro: Negative for headache, weakness, numbness, tingling, and seizure. Exam: 19:06 Constitutional: This is a well developed, well nourished patient who is awake, alert, pm1 and in no acute distress. Head/Face: Normocephalic, atraumatic. Neck: Trachea midline, no thyromegaly or masses palpated, and no cervical lymphadenopathy. Supple, full range of motion without nuchal rigidity, or vertebral point tenderness. No Meningismus. Chest/axilla: Normal chest wall appearance and motion. Nontender with no deformity. No lesions are appreciated. Cardiovascular: Regular rate and rhythm with a normal S1 and S2. No gallops, murmurs, or rubs. Normal PMI, no JVD. No pulse deficits. Respiratory: Lungs have equal breath sounds bilaterally, clear to auscultation and percussion. No rales, rhonchi or wheezes noted. No increased work of breathing, no retractions or nasal flaring. Abdomen/GI: Soft, non-tender, with normal bowel sounds. No distension or tympany. No guarding or rebound. No evidence of tenderness throughout. Back: No spinal tenderness. No costovertebral tenderness. Full range of motion. Skin: Warm, dry with normal turgor. Normal color with no rashes, no lesions, and no evidence of cellulitis. MS/ Extremity: Pulses equal, no cyanosis. Neurovascular intact. Full, normal range of motion. 19:06 Neuro: Orientation: is normal, Motor: is normal, moves all fours. Vital Signs: 18:43 BP 149 / 93; Pulse 85; Resp 22 S; Temp 97.9(O); Pulse Ox 100% on 2.5 lpm NC; Weight ca1 56.7 kg; Height 5 ft. 6 in. (167.64 cm); Pain 0/10; 19:30 BP 140 / 88; Pulse 87; Resp 19; Pulse Ox 99% on 2.5 lpm NC; ca1 20:00 BP 132 / 73; Pulse 88; Resp 16; Pulse Ox 97% on 2 lpm NC; ea 21:00 BP 149 / 88; Pulse 90; Resp 18; Pulse Ox 98% on R/A; ea 22:00 BP 149 / 94; Pulse 92; Resp 18; Pulse Ox 94% on 2 lpm NC; ea 23:00 BP 151 / 100; Pulse 92; Resp 18; Temp 98.0; Pulse Ox 96% on 2 lpm NC; Pain 0/10; fc 18:43 Body Mass Index 20.18 (56.70 kg, 167.64 cm) ca1 MDM: 18:43 Patient medically screened. pm1 18:49 ED course: Pending arrival of picc line nurse to replace patient's picc line. pm1 22:29 Data reviewed: vital signs. Data interpreted: Pulse oximetry: on room air is 99 %. pm1 Interpretation: normal. 22:58 Counseling: I had a detailed discussion with the patient and/or guardian regarding: the pm1 historical points, exam findings, and any diagnostic results supporting the discharge/admit diagnosis, radiology results, the need for outpatient follow up, for definitive care, a manager culture, to return to the emergency department if symptoms worsen or persist or if there are any questions or concerns that arise at home. 08/05 21:11 Order name: Chest Single View XRAY [facility] 08/05 19:49 Order name: Misc. Order: PICC line; Complete Time: 21:18 pm1 Administered Medications: No medications were administered Disposition: 08/05/18 22:59 Discharged to Home. Impression: Encounter for adjustment and management of vascular access device - PICC line insertion. - Condition is Stable. - Discharge Instructions: PICC Home Guide, PICC Insertion, Care After, PICC Insertion. - Medication Reconciliation Form, Thank You Letter, Antibiotic Education, Prescription Opioid Use form. - Follow up: Emergency Department; When: As needed; Reason: Worsening of condition. Follow up: Private Physician; When: 2 - 3 days; Reason: Recheck today's complaints, Continuance of care, Re-evaluation by your physician. - Problem is new. - Symptoms have improved. Addendum: 08/08/2018 21:19 Co-signature as Attending Physician, Kings Vega MD Available for consultation at p s1 all times. . Signatures: Dispatcher [employer] EDFL Mirna Delacruz RN RN fc Douglas Paniagua, SCRAPE GATHERER SCRAPE GATHERER pm1 Kings Vega MD MD ps1 Vanessa Orosco RN RN ca1 Corrections: (The following items were deleted from the chart) 08/05 23:14 22:59 08/05/2018 22:59 Discharged to Home. Impression: Encounter for adjustment and fc management of vascular access device - PICC line insertion. Condition is Stable. Discharge Instructions: PICC Home Guide, PICC Insertion, Care After, PICC Insertion. Forms are Medication Reconciliation Form, Thank You Letter, Antibiotic Education, Prescription Opioid Use. Follow up: Emergency Department; When: As needed; Reason: Worsening of condition. Follow up: Private Physician; When: 2 - 3 days; Reason: Recheck today's complaints, Continuance of care, Re-evaluation by your physician. Problem is new. Symptoms have improved. pm1
[2018-08-06 00:45] VITALS: BP 151/100; TEMP 98; O2SAT 96
--- NOTE | 2018-08-07 13:49 | RAD REPORT ---
EXAM DESCRIPTION: RAD - Chest Single View - 08/05/2018 9:21 pm CLINICAL HISTORY: PICC line placement COMPARISON: June [address] study TECHNIQUE: AP portable chest image was obtained 2118 hours . FINDINGS: No peripheral mass or consolidation. Interstitial pattern matches prior imaging. Cardiac s ilhouette is enlarged from chamber enlargement or pericardial effusion. Descending thoracic aortic st ent has been placed since the comparison study. Pulmonary is within normal limits. Mass-like density midline of the diaphragm is a known aortic aneurysm. No gross change from prior imaging. Right upper extremity PICC line has been placed. No bend or kink of the tubing. Tip is in the proxima l SVC. No measurable pleural effusion and no pneumothorax. No acute bony abnormality seen. IMPRESSION: 1. Chronic interstitial lung pattern not substantially different from comparison. 2. Right upper extremity PICC line with tip in the proximal SVC. 3. Additional non-acute findings detailed in the body of the report.
== END 2018-08-05 23:14 | disposition home or self-care (01) ==
LOC: ER 18:33
PROC: 05H933Z Insertion of Infusion Device into Right Brachial Vein, Percutaneous Approach (ICD-10-PCS; principal; 2018-08-05)
DX: Z46.89 Encounter for fitting and adjustment of other specified devices (principal); I11.0 Hypertensive heart disease with heart failure; I50.9 Heart failure, unspecified; E11.9 Type 2 diabetes mellitus without complications; J44.9 Chronic obstructive pulmonary disease, unspecified; I25.2 Old myocardial infarction; Z88.5 Allergy status to narcotic agent; Z88.8 Allergy status to other drugs, medicaments and biological substances
CPT/HCPCS: 71045; 99284

== ENCOUNTER 2018-08-10 12:25 | Emergency (ER) | payer OTHER ==
--- OUTSIDE RECORDS SUMMARY | 2018-08-10 12:28 | XMS REPORT | Clinical Summary ---
:1945 Author Organization [facility] Address [address] [place] [address] Care Team Providers Name Role Phone RodneyKendrick Primary Care Provider Daniel Pan Unavailable Allergies [...] mg total) by mouth 9 tablet daily. isosorbide Take 1 tablet (30 30 tablet 08/10/2017 Active mononitrate mg total) by mouth [...] mcg/dose 2 (two) times diskus inhaler daily. budesonide Take 2 mLs (0.5 mg 60 mL 0 08/09/2017 (PULMICORT) 0.5 total) by 9 mg/2 mL nebulizer nebulization 2 solution (two) times daily. bumetanide Take 1 tablet (1 60 tablet 11 08/09/2017 (BUMEX) 1 MG mg total) by mouth 9 tablet 2 (two) times daily. escitalopram Take 1 [...] Encounters Date Type Specialty Care Team Description 08/09/2018 Orders Only Sinanmu Yesi Descending thoracic U, PHYSICIAN CODER aortic aneurysm (HCC) (Primary Dx) 08/09/2018 Orders Only Diaz, Melanie I 08/08/2018 Orders Only Diaz, Melanie I 07/11/2018 Travel 07/08/2018 Orders Only General Internal Medicine 07/03/2018 Travel 06/30/2018 Travel 06/29/2018 Anesthesia Event Isaac Norman MD 06/29/2018 - Hospital Encounter Cardiology Ludwig Campos ST elevation myocardial infarction involving left circumflex coronary artery (HCC); 07/22/2018 MD Eric Acute postoperative pain; Preventza, Aneurysm (HCC); Oursuzy Chronic systolic heart failure (HCC); MD Suzette H/O aortic aneurysm repair; Polymorphic ventricular tachycardia (HCC); Type 2 diabetes mellitus with other specified complication, unspecified whether custodial insulin use (HCC); Cardiogenic shock (HCC); Ischemic cardiomyopathy; Acute on chronic systolic heart failure (HCC); Acute respiratory insufficiency; Right ventricular dysfunction; Essential hypertension 06/29/2018 Surgery Preventza, REPAIR,TEVAR-THORACI [place] C ENDOVASCULAR MD Suzette ANEURYSM 08/18/2017 Office Visit Cardiology Mely Iniguez NP Acute on chronic systolic (congestive) heart failure (HCC) (Primary Dx) 08/12/2017 Documentation Transplant CristhianAdryan robertsonelle 08/12/2017 Telephone Cardiology Wilman Walker RN 08/09/2017 Abstract Transplant Corin Dudley Maame 07/18/2017 - Hospital Encounter Cardiology Dalia Choi [...] with other specified complication, unspecified whether terminal clerk insulin use (HCC); Acute encephalopathy; Acute postoperative pain; Acute respiratory failure with hypoxemia (HCC) after 08/09/2017 Family History Medical History Relation Name Comments [...] Office Visit Transplant Kenton Levy MD [address] [facility] [address] [place] [address] [phone] Implants Implanted Type Area World History Teacher Device Shelf Model / Identifier Expiration Serial / Date Lot Grft Zenith Thor Endo [id number] - [id number] CV Aneurysm COOK:AORTIC [id number] 03/20/2021 [id number] / Implanted: Qty: 1 on 06/29/2018 by Masha Servin MD INTERVENTION / [id number] Grft Zen[employer] Thor Endo [id number] - [id number] CV Aneurysm COOK:AORTIC [id number] 02/10/2019 [id number] / Implanted: Qty: 1 on 06/29/2018 by Masha Servin MD INTERVENTION / [id number] Grft Zenith Thor Endo [id number] - [id number] CV Aneurysm COOK:AORTIC [id number] 12/27/2020 [id number] / Implanted: Qty: 1 on 06/29/2018 by Masha Servin MD INTERVENTION / [id number] [employer] Cardiovascular Coronary [place] [id number] 01/10/2018 [id number] / Implanted: Qty: 1 on 07/18/2017 by Oksana Stallings MD SCIENTIFIC / [id number] Procedures Procedure Name Priority Date/Time Associated Comments [...] on chronic Results for this CDT systolic (congestive) procedure are in heart failure (HCC) the results section. B-TYPE NATRIURETIC STAT 08/18/2017 2:44 PM Acute on chronic Results for this FACTOR (BNP) CDT systolic (congestive) procedure are in heart failure (HCC) the results section. BASIC METABOLIC STAT 08/18/2017 2:44 PM Acute on chronic Results for this PANEL (7) CDT systolic (congestive) procedure are in heart failure (HCC) the results section. PULMONARY FUNCTION - 08/11/2017 12:52 PM SCAN CDT VASCULAR DIAGRAM 08/10/2017 12:50 PM -SCAN CDT PULMONARY FUNCTION - 08/10/2017 12:50 PM SCAN CDT REPORT OF PROCEDURE 08/10/2017 12:50 PM - ENDOSCOPY SCAN CDT RHYTHM STRIP - SCAN 08/10/2017 12:50 PM CDT POCT-GLUCOSE METER Routine 08/09/2017 12:10 PM Results for this CDT procedure are in the results section. POCT-GLUCOSE METER Routine 08/09/2017 7:40 AM Results for this CDT procedure are in the results section. BASIC METABOLIC Routine 08/09/2017 4:17 AM Results for this PANEL (7) CDT procedure are in the results section. after 08/09/2017 Results RHYTHM STRIP - SCAN (07/25/2018 9:50 AM CDT)Only the most recent of4 resultswithin the time period is included. Narrative Performed At VASCULAR DIAGRAM -SCAN (07/25/2018 9:50 AM CDT)Only the most recent of2 resultswithin the time period is included. Narrative Performed At POC-Glucose meter (07/22/2018 12:27 PM CDT)Only the most recent of66 resultswithin the time period is included. POC-Glucose Meter 221 (H)Comment: TESTED AT 70 - 110 mg/dL [facility] [address] [facility] [address] Specimen Blood Performing Organization Address City/State/Zipcode Phone Number [facility] [address] [place] [phone] CENTER XR chest 1 view portable / bedside (07/22/2018 6:38 AM CDT)Only the most recent of25 resultswithin the time period is included. Specimen Narrative Performed At FINAL REPORT [facility] RAD, CHEST, 1 VIEW, NON DEPT INDICATION: post op COMPARISON: Prior day's exam FINDINGS: Portable frontal view of the chest. IMPRESSION: Support Lines: Stable. Lungs and pleura: Unchanged airspace and pleural opacities. No pneumothorax. Heart and mediastinum: Stable contours. Stable surgical changes. Additional findings: None. Signed: Trey Robles MD Report Verified Date/Time:07/22/2018 08:57:17 Reading Location: [address] Neuro Reading Room Procedure Note Interface, External [...] Report Verified Date/Time: 07/22/2018 08:57:17 Reading Location: [facility] C013 Neuro Reading Room Performing Organization Address City/[facility] Phone Number GE RIS aPTT (07/22/2018 4:58 AM CDT)Only the most recent of22 resultswithin the time period is included. PTT 44.5 (H) 22.5 - 36.0 seconds [facility] Specimen Blood Performing Organization Address City/[facility]/[place] [address] CENTER CBC (Hemogram only) (07/22/2018 4:58 AM CDT)Only the most recent of20 resultswithin the time period is included. WBC 6.6 3.5 - 10.5 K/L [facility] RBC 2.45 (L) 3.93 - 5.22 M/L [facility] Hemoglobin 7.7 (L) 11.2 - 15.7 GM/DL [facility] Hematocrit 26.1 (L) 34.1 - 44.9 % [facility] MCV 106.5 (H) 79.4 - 94.8 fL [facility] MCH 31.4 25.6 - 32.2 pg [facility] MCHC 29.5 (L) 32.2 - 35.5 GM/DL [facility] RDW 18.0 (H) 11.7 - 14.4 % [facility] Platelets 227 150 - 450 K/CU MM [facility] MPV 10.0 9.4 - 12.3 fL [facility] nRBC 0 0 - 0 /100 WBC [facility] Specimen Blood Performing Organization Address City/[facility] Phone Number [address] [address] [place] Phosphorus (07/22/2018 4:58 AM CDT)Only the most recent of20 resultswithin the time period is included. Phosphorus 3.9 2.3 - 4.7 mg/dL [facility] Specimen Blood Performing Organization Address City/[facility] Phone Number [address] [address] CENTER Magnesium (07/22/2018 4:58 AM CDT)Only the most recent of23 resultswithin the time period is included. Magnesium 1.7 1.6 - 2.6 mg/dL [facility] Specimen Blood Performing Organization Address City/[facility] Phone Number [address] [address] CENTER Basic Metabolic Panel (07/22/2018 4:58 AM CDT)Only the most recent of29 resultswithin the time period is included. Sodium 139 136 - 145 meq/L [facility] Potassium 4.4 3.5 - 5.1 meq/L [facility] Chloride 102 98 - 107 meq/L [facility] CO2 30 (H) 22 - 29 meq/L [facility] BUN 23 (H) 7 - 21 mg/dL [facility] Creatinine 1.40 (H) 0.57 - 1.25 mg/dL [facility] Glucose 139 (H) 70 - 105 mg/dL [facility] Calcium 8.8 8.4 - 10.2 mg/dL [facility] EGFR 45Comment: ESTIMATED GFR IS mL/min/1.73 sq m [facility] NOT ACCURATE CREATININE [facility] CENTER CLEARANCE IN PREDICTING GLOMERULAR FILTRATION RATE. ESTIMATED GFR IS NOT APPLICABLE FOR DIALYSIS PATIENTS. Specimen Blood Performing Organization Address City/[facility] Phone Number [address] [address] CENTER Prothrombin time/INR (07/19/2018 4:49 AM CDT)Only the most recent of19 resultswithin the time period is included. Protime 13.9 11.7 - 14.7 seconds [facility] INR 1.1 <=5.9 [facility] Specimen Blood Narrative Performed At RECOMMENDED COUMADIN/WARFARIN INR THERAPY [facility] RANGES STANDARD DOSE: 2.0 - 3.0 Includes: PROPHYLAXIS for venous thrombosis, systemic embolization; TREATMENT for venous thrombosis and/or pulmonary embolus. HIGH RISK: Target INR is 2.5-3.5 for patients with mechanical heart valves. Performing Organization Address City/[facility]/Zipcode Phone Number [address] [address] CENTER Digoxin level (07/13/2018 8:06 AM CDT) Digoxin Lvl 0.8 0.8 - 2.0 ng/mL [facility] Specimen Blood Narrative Performed At Draw before next dose of Digoxin [facility] Performing Organization Address [facility] Phone Number [address] [address] CENTER TRANSFUSION SERVICE REPORT - SCAN (07/12/2018 5:56 PM CDT)Only the most recent of3 resultswithin the time period is included. Narrative Performed At Prepare Leuko-Red RBC (07/11/2018 11:54 PM CDT) Unit ABO A Pos SAFETRACE TX UNIT NUMBER [id number] SAFETRACE TX Status TX_TIMEINCHART SAFETRACE TX Blood Bank Product RED BLOOD CELLS SAFETRACE TX PRODUCT CODE [id number] SAFETRACE TX CROSSMATCH COMPATIBLE SAFETRACE [place] Specimen Other Performing Organization Address City/State/Zipcode Phone Number SAF[place] [place] Transfuse Leuko-Red RBC (07/10/2018 6:35 PM CDT)Only the most recent of2 resultswithin the time period is included.Type and screen, automated (2018 5:25 AM CDT)Only the most recent of2 resultswithin the time period is included. ABO/RH AUTOMATED (BEAKER) A POSITIVE [facility] Ab Scrn NEGATIVE [facility] Specimen Blood Performing Organization Address City/[facility]/Zipcode Phone Number [facility] [address] [place] [address] [phone] ECG 12 lead (07/08/2018 12:15 PM CDT)Only the most recent of2 resultswithin the time period is included. Specimen Narrative Performed At Ventricular Rate 107 BPM GE MUSE Atrial Rate 107 BPM P-R Interval 154 ms QRS Duration 104 ms Q-T Interval 382 ms QTC Calculation(Bazett) 509 ms P Preston 52 degrees R Preston -18 degrees T Preston 62 degrees Sinus tachycardia Nonspecific T wave [...] 382 ms QTC Calculation(Bazett) 509 ms P Preston 52 degrees R Preston -18 degrees T Preston 62 degrees Sinus tachycardia Nonspecific T wave abnormality Prolonged QT Abnormal ECG When compared with ECG of 06-JUL-2018 10:28, Nonspecific T wave abnormality, improved in Anterior leads QT has lengthened Confirmed by MD BIRGIT, [id number] on 07/09/2018 6:44:32 AM Performing Organization Address [facility] Phone Number MUSE Blood gas, arterial (07/06/2018 4:26 PM CDT)Only the most recent of6 resultswithin the time period is included. pH, Arterial 7.46 (H) 7.35 - 7.45 [facility] pCO2, Arterial 42 35 - 45 mmHg [facility] pO2, Arterial 63 (L) 80 - 90 mmHg [facility] O2 Sat, Arterial 93.1 (L) 96.0 - 97.0 % [facility] HCO3, Arterial 29 21 - 29 mmol/L [facility] Base Excess, Arterial 4.4 (H) -2.0 - 3.0 mmol/L [facility] Patient Temperature 37.0 C [facility] FIO2 32.0 % [facility] Specimen Blood, Arterial Performing Organization Address [facility] Phone Number [address] [address] CENTER Hepatic function panel (07/05/2018 5:16 PM CDT)Only the most recent of2 resultswithin the time period is included. Protein, Total 6.2 6.0 - 8.3 gm/dL [facility] Albumin 3.2 (L) 3.5 - 5.0 g/dL [facility] Total Bilirubin 0.7 0.2 - 1.2 mg/dL [facility] Bilirubin, Direct 0.5 0.1 - 0.5 mg/dL [facility] Alkaline Phosphatase 84 40 - 150 U/L [facility] AST 16 5 - 34 U/L [facility] ALT 9 6 - 55 U/L [facility] Specimen Blood Performing Organization Address City/State/Zipcode Phone Number [facility] [address] [place], [place] [phone] CENTER Potassium (07/03/2018 10:03 AM CDT) Potassium 4.3 3.5 - 5.1 meq/L [facility] Specimen Blood Narrative Performed At Check Serum Potassium level 30 minutes after [facility] IV potassium replacement completed. Performing Organization Address City/[facility]/Zipcode Phone Number [facility] [address] [place] [phone] [facility] [facility] XR abdomen / KUB 1 view (07/03/2018 [...] MD Report Verified Date/Time:07/03/2018 06:21:16 Reading Location: [facility] B1 C013T Transitional Reading Room Procedure Note Interface, External [...] Report Verified Date/Time: 07/03/2018 06:21:16 Reading Location: [facility] B1 C013T Transitional Reading Room Performing Organization Address City/State/Zipcode Phone Number GE RIS Oxygen saturation, measured (07/02/2018 10:46 AM CDT)Only the most recent of3 resultswithin the time period is included. O2 Saturation (Measured) 50.1 % [facility] Specimen Blood Performing Organization Address City/[facility]/Zipcode Phone Number [facility] [address] [place] [address] CENTER CBC with platelet count + automated diff (07/02/2018 4:09 AM CDT)Only the most recent of6 resultswithin the time period is included. WBC 7.9 3.5 - 10.5 K/L [facility] RBC 2.83 (L) 3.93 - 5.22 M/L [facility] Hemoglobin 8.6 (L) 11.2 - 15.7 GM/DL [facility] Hematocrit 28.4 (L) 34.1 - 44.9 % [facility] MCV 100.4 (H) 79.4 - 94.8 fL [facility] MCH 30.4 25.6 - 32.2 pg [facility] MCHC 30.3 (L) 32.2 - 35.5 GM/DL [facility] RDW 17.9 (H) 11.7 - 14.4 % [facility] Platelets 222 150 - 450 K/CU MM [facility] MPV 9.9 9.4 - 12.3 fL [facility] nRBC 0 0 - 0 /100 WBC [facility] % Neutros 85 % [facility] % Lymphs 6 % [facility] % Monos 8 % [facility] % Eos 1 % [facility] % Baso 0 % [facility] # Neutros 6.67 (H) 1.56 - 6.13 K/L [facility] # Lymphs 0.46 (L) 1.18 - 3.74 K/L [facility] # Monos 0.64 (H) 0.24 - 0.36 K/L [facility] # Eos 0.06 0.04 - 0.36 K/L [facility] # Baso 0.02 0.01 - 0.08 K/L [facility] Immature 1 0 - 1 % [facility] Specimen Blood Performing Organization Address City/State/Zipcode Phone Number [facility] [address] [place] [address] [phone] CENTER ECHOCARDIOGRAM REPORT - SCAN (06/30/2018 9:22 PM CDT) Narrative Performed At 2D Echo W/Doppler(CW/PW/Color) (06/30/2018 8:36 AM CDT) Ejection Fraction [facility] ECHO [facility] [employer] [facility] Specimen Narrative Performed At Transthoracic Echocardiography Report (TTE) [facility]CHO [facility] Recite MeCK[facility] Demographics Patient Name DANA, Date of Study 06/30/2018 DURGA [id number] GenderFemale Visit Number [id number] Black [id number] Room Number 2C52 Number Date of Birth1945Referring Physician Malathi Flanagan Age72 year(s)Surgical Assistant Fela Antunez RDCS AnalystIzoldMD Jessika Dolan Physician Procedure Type of Study TTE procedure:2DECHO [...] Study 06/30/2018 DURGA Gender Female Visit Number [id number] Race Black Room Number 2C52 Number Date of 1945 Referring Physician Malathi Flanagan Age 72 year(s) Surgical Assistant Fela Antunez, CS Oncology Consultant Khari Florence Interpreting MD Jessika Abel Physician Procedure Type of Study TTE procedure:2DECHO [...] TR Gradient: 54.51 mmHg Performing Organization Address [facility] Phone Number [facility] ECHO HEARTLAB MKCKESSON CPACS Lactic Acid, Arterial (06/30/2018 4:33 AM CDT)Only the most recent of2 resultswithin the time period is included. Lactate, Art 1.0 0.5 - 2.2 mmol/L [facility] Specimen Blood, Arterial Performing Organization Address [facility] Phone Number [address] [address] CENTER B-type Natriuretic Factor (BNP) (06/30/2018 3:10 AM CDT)Only the most recent of3 resultswithin the time period is included. BNP 14,363 (H) 0 - 100 pg/mL [facility] Specimen Blood Performing Organization Address [facility] Phone Number [address] [address] CENTER Prepare RBC (06/30/2018 1:27 AM CDT) CROSSMATCH COMPATIBLE SAFETRACE TX Unit ABO A Pos SAFETRACE TX UNIT NUMBER [id number] SAFETRACE TX Status RETURNED FROM ISSUE SAFETRACE TX Blood Bank Product RED BLOOD CELLS SAFETRACE TX PRODUCT CODE [id number] SAFETRACE TX CROSSMATCH COMPATIBLE SAFETRACE TX Unit ABO A Pos SAFETRACE TX UNIT NUMBER [id number] SAFETRACE TX Status RETURNED FROM ISSUE SAFETRACE TX Blood Bank Product RED BLOOD CELLS SAFETRACE TX PRODUCT CODE [id number] SAFETRACE TX CROSSMATCH COMPATIBLE SAFETRACE TX Unit ABO A Pos SAFETRACE TX UNIT NUMBER [id number] SAFETRACE TX Status RETURNED FROM ISSUE SAFETRACE TX Blood Bank Product RED BLOOD CELLS SAFETRACE TX PRODUCT CODE [id number] SAFETRACE TX CROSSMATCH COMPATIBLE SAFETRACE TX Unit ABO A Pos SAFETRACE TX UNIT NUMBER [id number] SAFETRACE TX Status RETURNED FROM ISSUE SAFETRACE TX Blood Bank Product RED BLOOD CELLS SAFETRACE TX PRODUCT CODE [id number] SAFET[place]ACE [place] Specimen Performing Organization Address City/[facility] Phone Number SAFETRACE TX POC ACTIVATED CLOTTING TIME (06/30/2018 12:52 AM CDT)Only the most recent of4 resultswithin the time period is included. Activated Clotting Time 147Comment: TESTED AT sec [address] [address] Specimen Blood Performing Organization Address [facility] Phone Number [address] [address] CENTER Potassium-Stat Lab (06/29/2018 11:07 PM CDT) Potassium 4.4 3.6 - 5.5 meq/L [facility] Specimen Blood, Arterial Performing Organization Address [facility] Phone Number [address] [address] CENTER Sodium Na-Stat Lab (06/29/2018 11:07 PM CDT) Sodium 137 135 - 148 meq/L [facility] Specimen Blood, Arterial Performing Organization Address [facility] Phone Number [address] [phone] [place] Glucose-Stat Lab (06/29/2018 11:07 PM CDT) Glucose 97 70 - 110 mg/dL [facility] Specimen Blood, Arterial Performing Organization Address [facility] Phone Number [address] [address] [place] HGB/HCT (H&H)-Stat Lab (06/29/2018 11:07 PM CDT) Hemoglobin 10.7 (L) 12.0 - 15.0 g/dL [facility] Hematocrit 31.0 (L) 36.0 - 45.0 % [facility] Specimen Blood, Arterial Performing Organization Address [facility] Phone Number [address] [address] [phone] [facility] Filter Ionized Calcium (06/29/2018 11:07 PM CDT) Filter Ionized Calcium 1.14 mmol/L [facility] Specimen Blood Narrative Performed At Reference Range: No Normals [facility] Performing Organization Address [facility] Phone Number [address] [address] [facility] [place] CONOR (06/29/2018 10:41 PM CDT) Narrative Performed At Nico Wong MD 06/29/2018 10:53 PM [place] Date: 06/29/2018 10:41 PM Sex: Female Location: OR Requesting Physician: Charles Ayala DO IntubatedSedated Insertion: easy Probe Type: multiplane Modalities: [...] (08/10/2017 12:50 PM CDT) Narrative Performed At after 08/09/2017 Insurance Payer Benefit Plan / Subscriber ID Type Phone Address Group [employer]ET[employer] - A[employer] MEDICARE xxxxxxxx Maps Contracted [phone] [address] MEDICARE MGD HMO POS [id number] [place] [address] Advance Directives For more information, please contact:[address] [phone] Code Status Date Activated Date Inactivated Comments Full Code 06/29/2018 8:48 PM 07/22/2018 8:31 PM This code status was determined by: Patient Full Code 07/18/2017 10:01 AM 08/09/2017 4:37 PM This code status was determined by: Patient Full Code 06/11/2016 8:17 PM 06/15/2016 3:58 PM This code status was determined by: Patient
--- OUTSIDE RECORDS SUMMARY | 2018-08-10 12:43 | XMS REPORT ---
:1945 Author Organization [facility] Address [address] [place] [address] [address]. [address] [place] [address] Care Team Providers Name Role Phone DELILAH [...] (BEAKER) (test 221 mg/dL 70-110 TESTED AT [address] ecrd=1212) [facility] [address] POCT-GLUCOSE [id number] 09:00:00 Test Item Value Reference Range Comments POC-GLUCOSE METER (BEAKER) 135 mg/dL 70-110 TESTED AT [address] (test fhlk=0105) [facility] [address] RAD, CHEST, 1 VIEW, NON [id number] 08:57:00Reason for exam:->post opShould this be performed [...] MDRepcamilla Verified Date/Time: 07/22/2018 08:57:17 Reading Location: [address] Neuro Reading Room Electronicallysigned by: TREY ROBLES MD on 07/22/2018 08:57 [id number] 07:51:00 Test Item Value Reference Range Comments PHOSPHORUS (BEAKER) (test zisz=273) 3.9 mg/dL 2.3-4.7 [id number] 07:51:00 Test Item Value Reference Range Comments MAGNESIUM (BEAKER) (test uwce=006) 1.7 mg/dL 1.6-2.6 BASIC METABOLIC [id number] 07:51:00 Test Item Value Reference Range Comments SODIUM (BEAKER) (test 139 meq/L 136-145 ypcr=532) POTASSIUM (BEAKER) (test 4.4 meq/L 3.5-5.1 eztv=329) CHLORIDE (BEAKER) (test 102 meq/L 98-107 lktj=272) CO2 (BEAKER) (test 30 meq/L 22-29 cvcp=857) BLOOD UREA NITROGEN 23 mg/dL 7-21 (BEAKER) (test entn=323) CREATININE (BEAKER) (test 1.40 mg/dL 0.57-1.25 bqcf=364) GLUCOSE RANDOM (BEAKER) 139 mg/dL 70-105 (test reas=407) CALCIUM (BEAKER) (test 8.8 mg/dL 8.4-10.2 bwku=374) EGFR (BEAKER) (test 45 mL/min/1.73 sq m ESTIMATED GFR IS NOT eiqd=1975) ACCURATE CREATININE CLEARANCE IN PREDICTING GLOMERULAR FILTRATION RATE. ESTIMATED GFR IS NOT APPLICABLE FOR DIALYSIS PATIENTS. [id number] 05:36:00 Test Item Value Reference Range Comments PARTIAL THROMBOPLASTIN TIME (BEAKER) (test 44.5 seconds 22.5-36.0 gurb=023) CBC (HEMOGRAM ONLY)2018-07-22 05:24:00 Test Item Value Reference Range Comments WHITE BLOOD CELL COUNT (BEAKER) (test ipgi=446) 6.6 K/ L 3.5-10.5 RED BLOOD CELL COUNT (BEAKER) (test zenj=612) 2.45 M/ L 3.93-5.22 HEMOGLOBIN (BEAKER) (test mfzr=979) 7.7 GM/DL 11.2-15.7 HEMATOCRIT (BEAKER) (test insb=560) 26.1 % 34.1-44.9 MEAN CORPUSCULAR VOLUME (BEAKER) (test ktax=021) 106.5 fL 79.4-94.8 MEAN CORPUSCULAR HEMOGLOBIN (BEAKER) (test 31.4 pg 25.6-32.2 mqpl=578) MEAN CORPUSCULAR HEMOGLOBIN CONC (BEAKER) (test 29.5 GM/DL 32.2-35.5 vqxz=784) RED CELL DISTRIBUTION WIDTH (BEAKER) (test 18.0 % 11.7-14.4 pmys=119) PLATELET COUNT (BEAKER) (test ltuw=961) 227 K/CU MM 150-450 MEAN PLATELET VOLUME (BEAKER) (test awtv=030) 10.0 fL 9.4-12.3 NUCLEATED RED BLOOD CELLS (BEAKER) (test 0 /100 WBC 0-0 jqjg=133) POCT-GLUCOSE [id number] 21:36:00 Test Item Value Reference Range Comments POC-GLUCOSE METER (BEAKER) 283 mg/dL 70-110 TESTED AT [address] (test qezp=7845) [place] [id number] POCT-GLUCOSE [id number] 18:26:00 Test Item Value Reference Range Comments POC-GLUCOSE METER (BEAKER) 123 mg/dL 70-110 TESTED AT [address] (test jtho=0809) [place] [id number] POCT-GLUCOSE [id number] 14:04:00 Test Item Value Reference Range Comments POC-GLUCOSE METER (BEAKER) 152 mg/dL 70-110 TESTED AT [address] (test uwxh=4461) [place] [address]30 POCT-GLUCOSE [id number] 12:52:00 Test Item Value Reference Range Comments POC-GLUCOSE METER (BEAKER) 228 mg/dL 70-110 TESTED AT [address] (test jxfd=2325) [facility] [address] RAD, CHEST, 1 VIEW, NON [id number] 09:40:00Reason for exam:->post opShould this be performed at the bedside?->YesFINAL REPORT Comparison: 07/20/2018 TECHNIQUE: Single view of the chest FINDINGS: There are nonspecific prominent interstitial markings bilaterally. Trace pleural effusions are seen. No gross new lung parenchymal changes. Cardiac silhouette is enlarged. Thoracic aortic stent grafts noted. Right-sided PICC line is stable. Signed: Olayinka Hampton MDReport Verified Date/Time: 07/21/2018 09: 40:18 Reading Location: [facility] Radiology Reading Room POCT-GLUCOSE [id number] 09:10: 00 Test Item Value Reference Range Comments POC-GLUCOSE METER (BEAKER) 239 mg/dL 70-110 TESTED AT [facility] [address] [facility] (test srij=5057) [facility] [address] [id number] 06:51:00 Test Item Value Reference Range Comments PHOSPHORUS (BEAKER) (test pqqr=061) 3.4 mg/dL 2.3-4.7 [id number] 06:51:00 Test Item Value Reference Range Comments MAGNESIUM (BEAKER) (test vgni=935) 1.8 mg/dL 1.6-2.6 BASIC METABOLIC [id number] 06:51:00 Test Item Value Reference Range Comments SODIUM (BEAKER) (test 137 meq/L 136-145 umuc=871) POTASSIUM (BEAKER) (test 4.4 meq/L 3.5-5.1 yjly=430) CHLORIDE (BEAKER) (test 100 meq/L 98-107 uhvt=944) CO2 (BEAKER) (test 31 meq/L 22-29 hrdh=810) BLOOD UREA NITROGEN 23 mg/dL 7-21 (BEAKER) (test vwex=045) CREATININE (BEAKER) (test 1.40 mg/dL 0.57-1.25 oesi=585) GLUCOSE RANDOM (BEAKER) 146 mg/dL 70-105 (test pviv=223) CALCIUM (BEAKER) (test 9.2 mg/dL 8.4-10.2 xisr=104) EGFR (BEAKER) (test 45 mL/min/1.73 sq m ESTIMATED GFR IS NOT ogey=3797) ACCURATE CREATININE CLEARANCE IN PREDICTING GLOMERULAR FILTRATION RATE. ESTIMATED GFR IS NOT APPLICABLE FOR DIALYSIS PATIENTS. [id number] 06:47:00 Test Item Value Reference Range Comments PARTIAL THROMBOPLASTIN TIME (BEAKER) (test 51.7 seconds 22.5-36.0 awyn=385) CBC (HEMOGRAM ONLY)2018-07-21 06:28:00 Test Item Value Reference Range Comments WHITE BLOOD CELL COUNT (BEAKER) (test dagh=532) 5.4 K/ L 3.5-10.5 RED BLOOD CELL COUNT (BEAKER) (test acsg=946) 2.66 M/ L 3.93-5.22 HEMOGLOBIN (BEAKER) (test lmgr=365) 8.2 GM/DL 11.2-15.7 HEMATOCRIT (BEAKER) (test qgmm=668) 28.3 % 34.1-44.9 MEAN CORPUSCULAR VOLUME (BEAKER) (test oovr=092) 106.4 fL 79.4-94.8 MEAN CORPUSCULAR HEMOGLOBIN (BEAKER) (test 30.8 pg 25.6-32.2 uqrs=317) MEAN CORPUSCULAR HEMOGLOBIN CONC (BEAKER) (test 29.0 GM/DL 32.2-35.5 ploc=749) RED CELL DISTRIBUTION WIDTH (BEAKER) (test 18.3 % 11.7-14.4 cdcy=497) PLATELET COUNT (BEAKER) (test oqsu=333) 211 K/CU MM 150-450 MEAN PLATELET VOLUME (BEAKER) (test qwzx=330) 10.3 fL 9.4-12.3 NUCLEATED RED BLOOD CELLS (BEAKER) (test 0 /100 WBC 0-0 woqu=312) POCT-GLUCOSE [id number] 21:18:00 Test Item Value Reference Range Comments POC-GLUCOSE METER (BEAKER) 245 mg/dL 70-110 TESTED AT [address] (test nqhe=3872) [facility] [address] POCT-GLUCOSE [id number] 18:12:00 Test Item Value Reference Range Comments POC-GLUCOSE METER (BEAKER) 158 mg/dL 70-110 TESTED AT [address] (test lqeo=4679) [facility] [address] POCT-GLUCOSE [id number] 12:46:00 Test Item Value Reference Range Comments POC-GLUCOSE METER (BEAKER) 178 mg/dL 70-110 TESTED AT [address] (test mqvf=7201) [facility] [address] RAD, CHEST, 1 VIEW, NON [id number] 08:43:00Reason for exam:->post opShould this be performed at the bedside?->YesFINAL REPORT Chest one view. Clinical history: post op Comparison: 2018Discussion: A frontal chest is provided. Cardiomediastinal contours are unchanged. Lines and tubesare in stable position. Stable appearance of vascular congestion and interstitial edema. Small bilateral pleural effusions. No pneumothorax. Signed: Morgan Chengeport Verified Date/Time: 07/20/2018 08:43 :10 Reading Location: [facility] Radiology Reading Room POCT-GLUCOSE [id number] 08:05:00 Test Item Value Reference Range Comments POC-GLUCOSE METER (BEAKER) 114 mg/dL 70-110 TESTED AT [facility] [address] [facility] (test btos=4306) [facility] [address] [id number] 06:55:00 Test Item Value Reference Range Comments PHOSPHORUS (BEAKER) (test dcle=348) 3.4 mg/dL 2.3-4.7 [id number] 06:55:00 Test Item Value Reference Range Comments MAGNESIUM (BEAKER) (test bywc=432) 1.5 mg/dL 1.6-2.6 BASIC METABOLIC [id number] 06:55:00 Test Item Value Reference Range Comments SODIUM (BEAKER) (test 137 meq/L 136-145 bgbv=632) POTASSIUM (BEAKER) (test 4.4 meq/L 3.5-5.1 maqu=633) CHLORIDE (BEAKER) (test 101 meq/L 98-107 zvpm=770) CO2 (BEAKER) (test 27 meq/L 22-29 omap=845) BLOOD UREA NITROGEN 23 mg/dL 7-21 (BEAKER) (test dufg=436) CREATININE (BEAKER) (test 1.28 mg/dL 0.57-1.25 kfgl=278) GLUCOSE RANDOM (BEAKER) 150 mg/dL 70-105 (test kjbs=532) CALCIUM (BEAKER) (test 9.0 mg/dL 8.4-10.2 njlv=545) EGFR (BEAKER) (test 50 mL/min/1.73 sq m ESTIMATED GFR IS NOT ihyx=7751) ACCURATE CREATININE CLEARANCE IN PREDICTING GLOMERULAR FILTRATION RATE. ESTIMATED GFR IS NOT APPLICABLE FOR DIALYSIS PATIENTS. [id number] 06:28:00 Test Item Value Reference Range Comments PARTIAL THROMBOPLASTIN TIME (BEAKER) (test 44.5 seconds 22.5-36.0 lrmv=784) CBC (HEMOGRAM ONLY)2018-07-20 06:19:00 Test Item Value Reference Range Comments WHITE BLOOD CELL COUNT (BEAKER) (test qgjr=425) 5.5 K/ L 3.5-10.5 RED BLOOD CELL COUNT (BEAKER) (test eogz=448) 2.58 M/ L 3.93-5.22 HEMOGLOBIN (BEAKER) (test xqwl=819) 7.9 GM/DL 11.2-15.7 HEMATOCRIT (BEAKER) (test ijzc=816) 27.1 % 34.1-44.9 MEAN CORPUSCULAR VOLUME (BEAKER) (test fitb=721) 105.0 fL 79.4-94.8 MEAN CORPUSCULAR HEMOGLOBIN (BEAKER) (test 30.6 pg 25.6-32.2 zcwx=275) MEAN CORPUSCULAR HEMOGLOBIN CONC (BEAKER) (test 29.2 GM/DL 32.2-35.5 qdry=534) RED CELL DISTRIBUTION WIDTH (BEAKER) (test 18.5 % 11.7-14.4 mmnh=729) PLATELET COUNT (BEAKER) (test qmsi=954) 189 K/CU MM 150-450 MEAN PLATELET VOLUME (BEAKER) (test upiq=283) 9.9 fL 9.4-12.3 NUCLEATED RED BLOOD CELLS (BEAKER) (test 0 /100 WBC 0-0 dbpl=224) POCT-GLUCOSE [id number] 00:43:00 Test Item Value Reference Range Comments POC-GLUCOSE METER (BEAKER) 135 mg/dL 70-110 TESTED AT [address] (test flav=7149) [facility] [address] POCT-GLUCOSE [id number] 21:19:00 Test Item Value Reference Range Comments POC-GLUCOSE METER (BEAKER) 284 mg/dL 70-110 TESTED AT [address] (test jeyn=3380) [facility] [address] POCT-GLUCOSE [id number] 17:54:00 Test Item Value Reference Range Comments POC-GLUCOSE METER (BEAKER) 146 mg/dL 70-110 TESTED AT [facility] [address] [facility] (test tguj=4483) [facility] [address] POCT-GLUCOSE [id number] 14:15:00 Test Item Value Reference Range Comments POC-GLUCOSE METER (BEAKER) 230 mg/dL 70-110 TESTED AT [place] [id number] [facility] (test ploi=2310) [facility] [address] RAD, CHEST, 1 VIEW, NON [id number] 08:30:00Reason for exam:->post opShould this be performed [...] line appears in good position. Signed: Geo Rico MDReport Verified Date/Time: 07/19/2018 08:30:21 Reading Location: [facility] Radiology Reading Room POCT-GLUCOSE [id number] 07:30:00 Test Item Value Reference Range Comments POC-GLUCOSE METER (BEAKER) 177 mg/dL 70-110 TESTED AT [facility] [address] [facility] (test ieii=6744) [facility] [address] [id number] 05:20:00 Test Item Value Reference Range Comments PHOSPHORUS (BEAKER) (test ahkl=145) 3.5 mg/dL 2.3-4.7 [id number] 05:20:00 Test Item Value Reference Range Comments MAGNESIUM (BEAKER) (test jgex=729) 1.8 mg/dL 1.6-2.6 BASIC METABOLIC [id number] 05:20:00 Test Item Value Reference Range Comments SODIUM (BEAKER) (test 142 meq/L 136-145 tols=740) POTASSIUM (BEAKER) (test 4.5 meq/L 3.5-5.1 jjny=596) CHLORIDE (BEAKER) (test 107 meq/L 98-107 engx=986) CO2 (BEAKER) (test 31 meq/L 22-29 uwku=889) BLOOD UREA NITROGEN 25 mg/dL 7-21 (BEAKER) (test iflb=883) CREATININE (BEAKER) (test 1.35 mg/dL 0.57-1.25 xaea=263) GLUCOSE RANDOM (BEAKER) 165 mg/dL 70-105 (test ziur=438) CALCIUM (BEAKER) (test 9.1 mg/dL 8.4-10.2 bwot=715) EGFR (BEAKER) (test 47 mL/min/1.73 sq m ESTIMATED GFR IS NOT lzsr=4175) ACCURATE CREATININE CLEARANCE IN PREDICTING GLOMERULAR FILTRATION RATE. ESTIMATED GFR IS NOT APPLICABLE FOR DIALYSIS PATIENTS. [id number] 05:17:00 Test Item Value Reference Range Comments PARTIAL THROMBOPLASTIN TIME (BEAKER) (test 44.9 seconds 22.5-36.0 kvlw=440) PROTHROMBIN TIME/[id number] 05:16:00 Test Item Value Reference Range Comments PROTIME (BEAKER) (test zhkw=815) 13.9 seconds 11.7-14.7 INR (BEAKER) (test xctg=883) 1.1 <=5.9 RECOMMENDED COUMADIN/WARFARIN INR THERAPY RANGESSTANDARD DOSE: 2.0 - 3.0 Includes: PROPHYLAXIS forvenous thrombosis, systemic embolization; TREATMENT for venous thrombosis and/or pulmonary embolus.HIGH RISK: Target INR is 2.5-3.5 for patients with mechanical heart valves.CBC (HEMOGRAM ONLY)2018-07-19 05:02:00 Test Item Value Reference Range Comments WHITE BLOOD CELL COUNT (BEAKER) (test jgou=638) 6.3 K/ L 3.5-10.5 RED BLOOD CELL COUNT (BEAKER) (test hkxg=535) 2.59 M/ L 3.93-5.22 HEMOGLOBIN (BEAKER) (test aeto=907) 8.1 GM/DL 11.2-15.7 HEMATOCRIT (BEAKER) (test tftg=833) 27.6 % 34.1-44.9 MEAN CORPUSCULAR VOLUME (BEAKER) (test xoew=693) 106.6 fL 79.4-94.8 MEAN CORPUSCULAR HEMOGLOBIN (BEAKER) (test 31.3 pg 25.6-32.2 evxt=726) MEAN CORPUSCULAR HEMOGLOBIN CONC (BEAKER) (test 29.3 GM/DL 32.2-35.5 kwns=871) RED CELL DISTRIBUTION WIDTH (BEAKER) (test 18.6 % 11.7-14.4 ildi=399) PLATELET COUNT (BEAKER) (test vvbt=830) 186 K/CU MM 150-450 MEAN PLATELET VOLUME (BEAKER) (test qrkb=490) 9.7 fL 9.4-12.3 NUCLEATED RED BLOOD CELLS (BEAKER) (test 0 /100 WBC 0-0 rsrn=151) POCT-GLUCOSE [id number] 23:14:00 Test Item Value Reference Range Comments POC-GLUCOSE METER (BEAKER) 173 mg/dL 70-110 TESTED AT [address] (test huiv=7032) [place] [address] POCT-GLUCOSE [id number] 21:47:00 Test Item Value Reference Range Comments POC-GLUCOSE METER (BEAKER) 237 mg/dL 70-110 TESTED AT [address] (test iupd=5517) [place] [address] POCT-GLUCOSE [id number] 18:16:00 Test Item Value Reference Range Comments POC-GLUCOSE METER (BEAKER) 234 mg/dL 70-110 TESTED AT [address] (test iuwt=5100) [place] [address] POCT-GLUCOSE [id number] 08:34:00 Test Item Value Reference Range Comments POC-GLUCOSE METER (BEAKER) 127 mg/dL 70-110 TESTED AT [address] (test fyjk=3324) [place] [address] RAD, CHEST, 1 VIEW, NON [id number] 08:16:00Reason for exam:->post opShould this be performed [...] MDReport Verified Date/Time: 07/18/2018 08:16:56 [facility] Rad[facility] Reading [facility] 08: 16 AMCBC (HEMOGRAM ONLY)2018-07-18 04:48:00 Test Item Value Reference Range Comments WHITE BLOOD CELL COUNT (BEAKER) (test yqyy=825) 7.8 K/ L 3.5-10.5 RED BLOOD CELL COUNT (BEAKER) (test xiga=246) 2.64 M/ L 3.93-5.22 HEMOGLOBIN (BEAKER) (test rtuh=293) 8.1 GM/DL 11.2-15.7 HEMATOCRIT (BEAKER) (test ijsp=799) 28.1 % 34.1-44.9 MEAN CORPUSCULAR VOLUME (BEAKER) (test vdrx=671) 106.4 fL 79.4-94.8 MEAN CORPUSCULAR HEMOGLOBIN (BEAKER) (test 30.7 pg 25.6-32.2 kpso=505) MEAN CORPUSCULAR HEMOGLOBIN CONC (BEAKER) (test 28.8 GM/DL 32.2-35.5 snnk=770) RED CELL DISTRIBUTION WIDTH (BEAKER) (test 18.9 % 11.7-14.4 pvyh=404) PLATELET COUNT (BEAKER) (test czfm=133) 197 K/CU MM 150-450 MEAN PLATELET VOLUME (BEAKER) (test ciri=382) 10.2 fL 9.4-12.3 NUCLEATED RED BLOOD CELLS (BEAKER) (test 0 /100 WBC 0-0 bigc=473) [id number] 04:40:00 Test Item Value Reference Range Comments PHOSPHORUS (BEAKER) (test jbpe=450) 3.6 mg/dL 2.3-4.7 [id number] 04:40:00 Test Item Value Reference Range Comments MAGNESIUM (BEAKER) (test oqim=057) 1.8 mg/dL 1.6-2.6 BASIC METABOLIC [id number] 04:40:00 Test Item Value Reference Range Comments SODIUM (BEAKER) (test 140 meq/L 136-145 iowv=792) POTASSIUM (BEAKER) (test 4.5 meq/L 3.5-5.1 wbwt=351) CHLORIDE (BEAKER) (test 106 meq/L 98-107 xjnl=072) CO2 (BEAKER) (test 26 meq/L 22-29 thvu=806) BLOOD UREA NITROGEN 23 mg/dL 7-21 (BEAKER) (test qrry=071) CREATININE (BEAKER) (test 1.34 mg/dL 0.57-1.25 mges=417) GLUCOSE RANDOM (BEAKER) 105 mg/dL 70-105 (test qttu=466) CALCIUM (BEAKER) (test 9.1 mg/dL 8.4-10.2 ulkc=466) EGFR (BEAKER) (test 47 mL/min/1.73 sq m ESTIMATED GFR IS NOT escx=4219) ACCURATE CREATININE CLEARANCE IN PREDICTING GLOMERULAR FILTRATION RATE. ESTIMATED GFR IS NOT APPLICABLE FOR DIALYSIS PATIENTS. [id number] 04:22:00 Test Item Value Reference Range Comments PARTIAL THROMBOPLASTIN TIME (BEAKER) (test 56.8 seconds 22.5-36.0 rqxn=690) PROTHROMBIN TIME/[id number] 04:20:00 Test Item Value Reference Range Comments PROTIME (BEAKER) (test qzfe=218) 13.9 seconds 11.7-14.7 INR (BEAKER) (test txjw=901) 1.0 <=5.9 RECOMMENDED COUMADIN/WARFARIN INR THERAPY RANGESSTANDARD DOSE: 2.0 - 3.0 Includes: PROPHYLAXIS forvenous thrombosis, systemic embolization; TREATMENT for venous thrombosis and/or pulmonary embolus.HIGH RISK: Target INR is 2.5-3.5 for patients with mechanical heart valves.POCT-GLUCOSE [id number] 20:54:00 Test Item Value Reference Range Comments POC-GLUCOSE METER (BEAKER) 311 mg/dL 70-110 Patient on insulin Drip/TESTED (test blso=9821) AT [place] [id number] [facility] [address] POCT-GLUCOSE [id number] 18:21:00 Test Item Value Reference Range Comments POC-GLUCOSE METER (BEAKER) 186 mg/dL 70-110 TESTED AT [address] (test kpkq=6848) [facility] [address] POCT-GLUCOSE [id number] 13:16:00 Test Item Value Reference Range Comments POC-GLUCOSE METER (BEAKER) 153 mg/dL 70-110 TESTED AT [address] (test eevk=8203) [facility] [address] POCT-GLUCOSE [id number] 09:26:00 Test Item Value Reference Range Comments POC-GLUCOSE METER (BEAKER) 128 mg/dL 70-110 TESTED AT [facility] [address] [facility] (test qhrh=0332) [facility] [address] RAD, CHEST, 1 VIEW, NON [id number] 07:39:00Reason for exam:->post opShould this be performed [...] Sam Verified Date/Time: 2018 07:39:00 Reading Location: [facility] Radiology Reading Room Electronically signed by: AZUL SAM M.D.on 07/17/2018 07:39 [id number] 06:22:00 Test Item Value Reference Range Comments PHOSPHORUS (BEAKER) (test brrw=427) 3.6 mg/dL 2.3-4.7 [id number] 06:22:00 Test Item Value Reference Range Comments MAGNESIUM (BEAKER) (test zxvg=919) 1.9 mg/dL 1.6-2.6 BASIC METABOLIC [id number] 06:22:00 Test Item Value Reference Range Comments SODIUM (BEAKER) (test 142 meq/L 136-145 jzrm=201) POTASSIUM (BEAKER) (test 4.6 meq/L 3.5-5.1 lobc=451) CHLORIDE (BEAKER) (test 106 meq/L 98-107 ubdy=972) CO2 (BEAKER) (test 30 meq/L 22-29 odxp=274) BLOOD UREA NITROGEN 23 mg/dL 7-21 (BEAKER) (test qirh=108) CREATININE (BEAKER) (test 1.31 mg/dL 0.57-1.25 iocd=215) GLUCOSE RANDOM (BEAKER) 88 mg/dL 70-105 (test gkec=842) CALCIUM (BEAKER) (test 8.9 mg/dL 8.4-10.2 mvzf=411) EGFR (BEAKER) (test 49 mL/min/1.73 sq m ESTIMATED GFR IS NOT yhnc=7578) ACCURATE CREATININE CLEARANCE IN PREDICTING GLOMERULAR FILTRATION RATE. ESTIMATED GFR IS NOT APPLICABLE FOR DIALYSIS PATIENTS. [id number] 05:10:00 Test Item Value Reference Range Comments PARTIAL THROMBOPLASTIN TIME (BEAKER) (test 52.0 seconds 22.5-36.0 xdlk=730) PROTHROMBIN TIME/[id number] 05:09:00 Test Item Value Reference Range Comments PROTIME (BEAKER) (test vmzw=000) 14.3 seconds 11.7-14.7 INR (BEAKER) (test szre=683) 1.1 <=5.9 RECOMMENDED COUMADIN/WARFARIN INR THERAPY RANGESSTANDARD DOSE: 2.0 - 3.0 Includes: PROPHYLAXIS forvenous thrombosis, systemic embolization; TREATMENT for venous thrombosis and/or pulmonary embolus.HIGH RISK: Target INR is 2.5-3.5 for patients with mechanical heart valves.CBC (HEMOGRAM ONLY)2018-07-17 04:55:00 Test Item Value Reference Range Comments WHITE BLOOD CELL COUNT (BEAKER) (test qhtu=324) 7.5 K/ L 3.5-10.5 RED BLOOD CELL COUNT (BEAKER) (test wlex=232) 2.63 M/ L 3.93-5.22 HEMOGLOBIN (BEAKER) (test pruh=624) 8.1 GM/DL 11.2-15.7 HEMATOCRIT (BEAKER) (test avfh=930) 27.7 % 34.1-44.9 MEAN CORPUSCULAR VOLUME (BEAKER) (test ndbk=291) 105.3 fL 79.4-94.8 MEAN CORPUSCULAR HEMOGLOBIN (BEAKER) (test 30.8 pg 25.6-32.2 hrik=638) MEAN CORPUSCULAR HEMOGLOBIN CONC (BEAKER) (test 29.2 GM/DL 32.2-35.5 kkdw=123) RED CELL DISTRIBUTION WIDTH (BEAKER) (test 18.9 % 11.7-14.4 rkad=308) PLATELET COUNT (BEAKER) (test trcr=746) 215 K/CU MM 150-450 MEAN PLATELET VOLUME (BEAKER) (test tnug=588) 10.2 fL 9.4-12.3 NUCLEATED RED BLOOD CELLS (BEAKER) (test 0 /100 WBC 0-0 qeom=927) POCT-GLUCOSE [id number] 21:30:00 Test Item Value Reference Range Comments POC-GLUCOSE METER (BEAKER) 217 mg/dL 70-110 TESTED AT [address] (test lqzn=5243) [place] [id number] POCT-GLUCOSE [id number] 18:00:00 Test Item Value Reference Range Comments POC-GLUCOSE METER (BEAKER) 192 mg/dL 70-110 TESTED AT [address] (test vibd=1660) [place] [id number] POCT-GLUCOSE [id number] 14:32:00 Test Item Value Reference Range Comments POC-GLUCOSE METER (BEAKER) 203 mg/dL 70-110 TESTED AT [address] (test aqmb=9656) [place] [id number] POCT-GLUCOSE [id number] 09:41:00 Test Item Value Reference Range Comments POC-GLUCOSE METER (BEAKER) 113 mg/dL 70-110 TESTED AT [address] (test kodx=1592) [place] [id number] 08:49:00 Test Item Value Reference Range Comments PHOSPHORUS (BEAKER) (test zzzo=635) 3.9 mg/dL 2.3-4.7 [id number] 08:49:00 Test Item Value Reference Range Comments MAGNESIUM (BEAKER) (test yhrv=842) 2.0 mg/dL 1.6-2.6 BASIC METABOLIC [id number] 08:49:00 Test Item Value Reference Range Comments SODIUM (BEAKER) (test 142 meq/L 136-145 fetu=324) POTASSIUM (BEAKER) (test 4.5 meq/L 3.5-5.1 ylxk=121) CHLORIDE (BEAKER) (test 105 meq/L 98-107 ynpi=284) CO2 (BEAKER) (test 30 meq/L 22-29 sivp=977) BLOOD UREA NITROGEN 24 mg/dL 7-21 (BEAKER) (test bxmg=824) CREATININE (BEAKER) (test 1.25 mg/dL 0.57-1.25 akmu=692) GLUCOSE RANDOM (BEAKER) 80 mg/dL 70-105 (test plof=947) CALCIUM (BEAKER) (test 8.8 mg/dL 8.4-10.2 mmzx=403) EGFR (BEAKER) (test 51 mL/min/1.73 sq m ESTIMATED GFR IS NOT gonw=7160) ACCURATE CREATININE CLEARANCE IN PREDICTING GLOMERULAR FILTRATION RATE. ESTIMATED GFR IS NOT APPLICABLE FOR DIALYSIS PATIENTS. RAD, CHEST, 1 VIEW, NON [id number] 08:09:00Reason for exam:->post opShould this be performed [...] Lopez Verified Date/Time: 07/16/2018 08:09:34 Reading Location: [address] Body Reading Room 08: 09 AMPROTHROMBIN [id number] 05:46:00 Test Item Value Reference Range Comments PROTIME (BEAKER) (test xdjg=725) 14.0 seconds 11.7-14.7 INR (BEAKER) (test bcsa=480) 1.1 <=5.9 RECOMMENDED COUMADIN/WARFARIN INR THERAPY RANGESSTANDARD DOSE: 2.0 - 3.0 Includes: PROPHYLAXIS forvenous thrombosis, systemic embolization; TREATMENT for venous thrombosis and/or pulmonary embolus.HIGH RISK: Target INR is 2.5-3.5 for patients with mechanical heart valves.[id number] 05:46:00 Test Item Value Reference Range Comments PARTIAL THROMBOPLASTIN TIME (BEAKER) (test 54.5 seconds 22.5-36.0 kkcs=650) CBC (HEMOGRAM ONLY)2018-07-16 05:33:00 Test Item Value Reference Range Comments WHITE BLOOD CELL COUNT (BEAKER) (test pald=217) 6.6 K/ L 3.5-10.5 RED BLOOD CELL COUNT (BEAKER) (test nvcx=928) 2.75 M/ L 3.93-5.22 HEMOGLOBIN (BEAKER) (test lblc=369) 8.5 GM/DL 11.2-15.7 HEMATOCRIT (BEAKER) (test twgx=071) 28.5 % 34.1-44.9 MEAN CORPUSCULAR VOLUME (BEAKER) (test epoq=408) 103.6 fL 79.4-94.8 MEAN CORPUSCULAR HEMOGLOBIN (BEAKER) (test 30.9 pg 25.6-32.2 mlmr=210) MEAN CORPUSCULAR HEMOGLOBIN CONC (BEAKER) (test 29.8 GM/DL 32.2-35.5 tjww=728) RED CELL DISTRIBUTION WIDTH (BEAKER) (test 19.1 % 11.7-14.4 luwx=275) PLATELET COUNT (BEAKER) (test xtpx=689) 240 K/CU MM 150-450 MEAN PLATELET VOLUME (BEAKER) (test aguh=034) 10.1 fL 9.4-12.3 NUCLEATED RED BLOOD CELLS (BEAKER) (test 0 /100 WBC 0-0 nyhu=802) POCT-GLUCOSE [id number] 21:14:00 Test Item Value Reference Range Comments POC-GLUCOSE METER (BEAKER) 152 mg/dL 70-110 TESTED AT [address] (test gkdv=4448) [facility] [id number] POCT-GLUCOSE [id number] 19:03:00 Test Item Value Reference Range Comments POC-GLUCOSE METER (BEAKER) 173 mg/dL 70-110 TESTED AT [address] (test usmp=9458) [facility] [address] POCT-GLUCOSE [id number] 13:33:00 Test Item Value Reference Range Comments POC-GLUCOSE METER (BEAKER) 274 mg/dL 70-110 TESTED AT [address] (test uund=2073) [facility] [id number] POCT-GLUCOSE [id number] 10:28:00 Test Item Value Reference Range Comments POC-GLUCOSE METER (BEAKER) 131 mg/dL 70-110 TESTED AT [place] [id number] [facility] CENTER (test vpdm=4940) [facility] [address] POCT-GLUCOSE [id number] 06:41:00 Test Item Value Reference Range Comments POC-GLUCOSE METER (BEAKER) 152 mg/dL 70-110 TESTED AT [place] [id number] [facility] (test ihax=5618) [facility] [address] [id number] 04:02:00 Test Item Value Reference Range Comments PHOSPHORUS (BEAKER) (test rpsa=355) 3.6 mg/dL 2.3-4.7 [id number] 04:02:00 Test Item Value Reference Range Comments MAGNESIUM (BEAKER) (test imsv=498) 2.1 mg/dL 1.6-2.6 BASIC METABOLIC [id number] 04:02:00 Test Item Value Reference Range Comments SODIUM (BEAKER) (test 135 meq/L 136-145 naby=577) POTASSIUM (BEAKER) (test 4.6 meq/L 3.5-5.1 umsx=063) CHLORIDE (BEAKER) (test 101 meq/L 98-107 vmih=953) CO2 (BEAKER) (test 27 meq/L 22-29 kvsq=034) BLOOD UREA NITROGEN 23 mg/dL 7-21 (BEAKER) (test rygt=060) CREATININE (BEAKER) (test 1.37 mg/dL 0.57-1.25 kbjw=542) GLUCOSE RANDOM (BEAKER) 187 mg/dL 70-105 (test ywtl=666) CALCIUM (BEAKER) (test 8.4 mg/dL 8.4-10.2 ikoa=597) EGFR (BEAKER) (test 46 mL/min/1.73 sq m ESTIMATED GFR IS NOT dnfk=1249) ACCURATE CREATININE CLEARANCE IN PREDICTING GLOMERULAR FILTRATION RATE. ESTIMATED GFR IS NOT APPLICABLE FOR DIALYSIS PATIENTS. [id number] 03:57:00 Test Item Value Reference Range Comments PARTIAL THROMBOPLASTIN TIME (BEAKER) (test 44.5 seconds 22.5-36.0 vggq=547) PROTHROMBIN TIME/[id number] 03:56:00 Test Item Value Reference Range Comments PROTIME (BEAKER) (test tvxs=874) 13.4 seconds 11.7-14.7 INR (BEAKER) (test cmyo=511) 1.0 <=5.9 RECOMMENDED COUMADIN/WARFARIN INR THERAPY RANGESSTANDARD DOSE: 2.0 - 3.0 Includes: PROPHYLAXIS forvenous thrombosis, systemic embolization; TREATMENT for venous thrombosis and/or pulmonary embolus.HIGH RISK: Target INR is 2.5-3.5 for patients with mechanical heart valves.RAD, CHEST, 1 VIEW, NON [id number] 03:40:00Reason for exam:->post opShould this be [...] MDReport Verified Date/Time: 07/15/2018 03:40:13 Reading Location: [address] Neuro Reading Room 03: 40 [facility] (HEMO[facility] ONLY)2018-07-15 03:33:00 Test Item Value Reference Range Comments WHITE BLOOD CELL COUNT (BEAKER) (test rkcl=150) 7.2 K/ L 3.5-10.5 RED BLOOD CELL COUNT (BEAKER) (test hnjw=787) 2.91 M/ L 3.93-5.22 HEMOGLOBIN (BEAKER) (test kgus=416) 8.9 GM/DL 11.2-15.7 HEMATOCRIT (BEAKER) (test lyee=245) 30.2 % 34.1-44.9 MEAN CORPUSCULAR VOLUME (BEAKER) (test ewvr=078) 103.8 fL 79.4-94.8 MEAN CORPUSCULAR HEMOGLOBIN (BEAKER) (test 30.6 pg 25.6-32.2 dhux=829) MEAN CORPUSCULAR HEMOGLOBIN CONC (BEAKER) (test 29.5 GM/DL 32.2-35.5 uvey=248) RED CELL DISTRIBUTION WIDTH (BEAKER) (test 19.2 % 11.7-14.4 btdv=910) PLATELET COUNT (BEAKER) (test ykec=733) 217 K/CU MM 150-450 MEAN PLATELET VOLUME (BEAKER) (test sbcl=208) 9.8 fL 9.4-12.3 NUCLEATED RED BLOOD CELLS (BEAKER) (test 0 /100 WBC 0-0 arrc=806) POCT-GLUCOSE [id number] 21:46:00 Test Item Value Reference Range Comments POC-GLUCOSE METER (BEAKER) 263 mg/dL 70-110 TESTED AT [address] (test iobg=1992) [facility] [address] POCT-GLUCOSE [id number] 19:03:00 Test Item Value Reference Range Comments POC-GLUCOSE METER (BEAKER) 178 mg/dL 70-110 TESTED AT [address] (test xjqg=0435) [facility] [address] POCT-GLUCOSE [id number] 17:02:00 Test Item Value Reference Range Comments POC-GLUCOSE METER (BEAKER) 126 mg/dL 70-110 TESTED AT [address] (test rcns=2513) [facility] [address] POCT-GLUCOSE [id number] 11:34:00 Test Item Value Reference Range Comments POC-GLUCOSE METER (BEAKER) 202 mg/dL 70-110 TESTED AT [address] (test ejjr=2096) [facility] [address] RAD, CHEST, 1 VIEW, NON [id number] 05:46:00Reason for exam:->post opShould this be performed [...] Robles Verified Date/Time: 07/14/2018 05:46:57 Reading Location: [address] Neuro Reading Room [id number] 04:03:00 Test Item Value Reference Range Comments MAGNESIUM (BEAKER) (test 2.2 mg/dL 1.6-2.6 Specimen slightly hemolyzed wxma=690) [id number] 04:03:00 Test Item Value Reference Range Comments PHOSPHORUS (BEAKER) (test 2.9 mg/dL 2.3-4.7 Specimen slightly hemolyzed wdvx=040) BASIC METABOLIC [id number] 04:03:00 Test Item Value Reference Range Comments SODIUM (BEAKER) (test 138 meq/L 136-145 ukhx=865) POTASSIUM (BEAKER) (test 5.0 meq/L 3.5-5.1 Specimen slightly bams=310) hemolyzed CHLORIDE (BEAKER) (test 103 meq/L 98-107 tgel=290) CO2 (BEAKER) (test 29 meq/L 22-29 jsrh=661) BLOOD UREA NITROGEN 23 mg/dL 7-21 (BEAKER) (test mtze=166) CREATININE (BEAKER) (test 1.41 mg/dL 0.57-1.25 Specimen slightly kabd=051) hemolyzed GLUCOSE RANDOM (BEAKER) 144 mg/dL 70-105 (test csup=124) CALCIUM (BEAKER) (test 9.1 mg/dL 8.4-10.2 fpqi=557) EGFR (BEAKER) (test 45 mL/min/1.73 sq m ESTIMATED GFR IS NOT loac=1874) ACCURATE CREATININE CLEARANCE IN PREDICTING GLOMERULAR FILTRATION RATE. ESTIMATED GFR IS NOT APPLICABLE FOR DIALYSIS PATIENTS. [id number] 03:49:00 Test Item Value Reference Range Comments PARTIAL THROMBOPLASTIN TIME (BEAKER) (test 42.0 seconds 22.5-36.0 cwdn=865) PROTHROMBIN TIME/[id number] 03:48:00 Test Item Value Reference Range Comments PROTIME (BEAKER) (test zsbi=079) 14.1 seconds 11.7-14.7 INR (BEAKER) (test czhp=769) 1.1 <=5.9 RECOMMENDED COUMADIN/WARFARIN INR THERAPY RANGESSTANDARD DOSE: 2.0 - 3.0 Includes: PROPHYLAXIS forvenous thrombosis, systemic embolization; TREATMENT for venous thrombosis and/or pulmonary embolus.HIGH RISK: Target INR is 2.5-3.5 for patients with mechanical heart valves.CBC (HEMOGRAM ONLY)2018-07-14 03:38:00 Test Item Value Reference Range Comments WHITE BLOOD CELL COUNT (BEAKER) (test cprs=185) 8.1 K/ L 3.5-10.5 RED BLOOD CELL COUNT (BEAKER) (test eixj=188) 2.93 M/ L 3.93-5.22 HEMOGLOBIN (BEAKER) (test tpal=433) 9.0 GM/DL 11.2-15.7 HEMATOCRIT (BEAKER) (test zbtx=414) 30.6 % 34.1-44.9 MEAN CORPUSCULAR VOLUME (BEAKER) (test iqvy=566) 104.4 fL 79.4-94.8 MEAN CORPUSCULAR HEMOGLOBIN (BEAKER) (test 30.7 pg 25.6-32.2 kpeb=000) MEAN CORPUSCULAR HEMOGLOBIN CONC (BEAKER) (test 29.4 GM/DL 32.2-35.5 snmp=871) RED CELL DISTRIBUTION WIDTH (BEAKER) (test 19.6 % 11.7-14.4 vmyx=876) PLATELET COUNT (BEAKER) (test ptrx=687) 252 K/CU MM 150-450 MEAN PLATELET VOLUME (BEAKER) (test jcdt=533) 9.7 fL 9.4-12.3 NUCLEATED RED BLOOD CELLS (BEAKER) (test 0 /100 WBC 0-0 kioe=840) POCT-GLUCOSE [id number] 21:17:00 Test Item Value Reference Range Comments POC-GLUCOSE METER (BEAKER) 168 mg/dL 70-110 TESTED AT [address] (test woaw=9957) [place] [id number] POCT-GLUCOSE [id number] 16:32:00 Test Item Value Reference Range Comments POC-GLUCOSE METER (BEAKER) 267 mg/dL 70-110 TESTED AT [address] (test hjpa=2685) [place] [address]30 POCT-GLUCOSE [id number] 12:30:00 Test Item Value Reference Range Comments POC-GLUCOSE METER (BEAKER) 213 mg/dL 70-110 TESTED AT [address] (test gxfj=8608) [place] [address] RAD, CHEST, 1 VIEW, NON [id number] 09:17:00Reason for exam:->post opShould this be performed [...] Mckeon Verified Date/Time: 07/13/2018 09:17:51 Reading Location: [facility] Radiology ReadingRoom 09 :17 AMDIGOXIN [id number] 09:01:00 Test Item Value Reference Range Comments DIGOXIN LEVEL (BEAKER) (test vqnv=504) 0.8 ng/mL 0.8-2.0 Draw before next dose of DigoxinPOCT-GLUCOSE [id number] 08:47:00 Test Item Value Reference Range Comments POC-GLUCOSE METER (BEAKER) 240 mg/dL 70-110 TESTED AT [facility] [address] [place] [address] (test ilyw=2049) [facility] [address] [id number] 04:08:00 Test Item Value Reference Range Comments PHOSPHORUS (BEAKER) (test oqjz=837) 3.5 mg/dL 2.3-4.7 [id number] 04:08:00 Test Item Value Reference Range Comments MAGNESIUM (BEAKER) (test ujex=932) 2.1 mg/dL 1.6-2.6 BASIC METABOLIC [id number] 04:08:00 Test Item Value Reference Range Comments SODIUM (BEAKER) (test 140 meq/L 136-145 gzwd=738) POTASSIUM (BEAKER) (test 4.8 meq/L 3.5-5.1 tbjn=556) CHLORIDE (BEAKER) (test 105 meq/L 98-107 jhlt=823) CO2 (BEAKER) (test 28 meq/L 22-29 clsy=811) BLOOD UREA NITROGEN 21 mg/dL 7-21 (BEAKER) (test wfpm=342) CREATININE (BEAKER) (test 1.33 mg/dL 0.57-1.25 pfms=791) GLUCOSE RANDOM (BEAKER) 123 mg/dL 70-105 (test zezu=114) CALCIUM (BEAKER) (test 8.8 mg/dL 8.4-10.2 upxd=784) EGFR (BEAKER) (test 48 mL/min/1.73 sq m ESTIMATED GFR IS NOT osso=8079) ACCURATE CREATININE CLEARANCE IN PREDICTING GLOMERULAR FILTRATION RATE. ESTIMATED GFR IS NOT APPLICABLE FOR DIALYSIS PATIENTS. [id number] 03:51:00 Test Item Value Reference Range Comments PARTIAL THROMBOPLASTIN TIME (BEAKER) (test 43.3 seconds 22.5-36.0 tihx=821) PROTHROMBIN TIME/[id number] 03:50:00 Test Item Value Reference Range Comments PROTIME (BEAKER) (test fyue=843) 13.7 seconds 11.7-14.7 INR (BEAKER) (test zbly=179) 1.0 <=5.9 RECOMMENDED COUMADIN/WARFARIN INR THERAPY RANGESSTANDARD DOSE: 2.0 - 3.0 Includes: PROPHYLAXIS forvenous thrombosis, systemic embolization; TREATMENT for venous thrombosis and/or pulmonary embolus.HIGH RISK: Target INR is 2.5-3.5 for patients with mechanical heart valves.CBC (HEMOGRAM ONLY)2018-07-13 03:24:00 Test Item Value Reference Range Comments WHITE BLOOD CELL COUNT (BEAKER) (test yihg=227) 7.5 K/ L 3.5-10.5 RED BLOOD CELL COUNT (BEAKER) (test nrsp=725) 2.94 M/ L 3.93-5.22 HEMOGLOBIN (BEAKER) (test qgfd=966) 9.1 GM/DL 11.2-15.7 HEMATOCRIT (BEAKER) (test ejsd=293) 30.9 % 34.1-44.9 MEAN CORPUSCULAR VOLUME (BEAKER) (test ywis=354) 105.1 fL 79.4-94.8 MEAN CORPUSCULAR HEMOGLOBIN (BEAKER) (test 31.0 pg 25.6-32.2 zwyf=089) MEAN CORPUSCULAR HEMOGLOBIN CONC (BEAKER) (test 29.4 GM/DL 32.2-35.5 pcog=032) RED CELL DISTRIBUTION WIDTH (BEAKER) (test 19.8 % 11.7-14.4 mynd=351) PLATELET COUNT (BEAKER) (test rlhd=149) 259 K/CU MM 150-450 MEAN PLATELET VOLUME (BEAKER) (test gywc=560) 9.7 fL 9.4-12.3 NUCLEATED RED BLOOD CELLS (BEAKER) (test 0 /100 WBC 0-0 zcbt=203) POCT-GLUCOSE [id number] 22:41:00 Test Item Value Reference Range Comments POC-GLUCOSE METER (BEAKER) 230 mg/dL 70-110 TESTED AT [address] (test fkfc=3348) [place] [id number] POCT-GLUCOSE [id number] 18:56:00 Test Item Value Reference Range Comments POC-GLUCOSE METER (BEAKER) 98 mg/dL 70-110 TESTED AT [address] (test nzrj=5740) [facility] [address] POCT-GLUCOSE [id number] 12:04:00 Test Item Value Reference Range Comments POC-GLUCOSE METER (BEAKER) 169 mg/dL 70-110 TESTED AT [address] (test hjja=6977) [facility] [address] POCT-GLUCOSE [id number] 09:50:00 Test Item Value Reference Range Comments POC-GLUCOSE METER (BEAKER) 260 mg/dL 70-110 TESTED AT [address] (test yukn=8159) [facility] [address] RAD, CHEST, 1 VIEW, NON [id number] 07:18:00Reason for exam:->post opShould this be performed at the bedside?->YesFINAL REPORT AP chest HISTORY: Postoperative. COMPARISON: 07/11/2018. IMPRESSION: Central line unchanged. Cardiomegaly. Thoracic aortic stent graft. Coarse interstitial markings similar to previous. Question developing right basilar atelectasis. No pneumothorax. Signed: Mitchel Jarquin MDReport Verified Date/ Time: 07/12/2018 07:18:25 Reading Location: [facility] Reading Room 07: 18 AMPOCT-GLUCOSE [id number] 06:54:00 Test Item Value Reference Range Comments POC-GLUCOSE METER (BEAKER) 193 mg/dL 70-110 TESTED AT [facility] [address] (test svsq=4446) [place] [address] [id number] 04:51:00 Test Item Value Reference Range Comments PARTIAL THROMBOPLASTIN TIME (BEAKER) (test 42.6 seconds 22.5-36.0 revg=999) PROTHROMBIN TIME/[id number] 04:42:00 Test Item Value Reference Range Comments PROTIME (BEAKER) (test zkmp=950) 13.7 seconds 11.7-14.7 INR (BEAKER) (test fyfe=824) 1.0 <=5.9 RECOMMENDED COUMADIN/WARFARIN INR THERAPY RANGESSTANDARD DOSE: 2.0 - 3.0 Includes: PROPHYLAXIS forvenous thrombosis, systemic embolization; TREATMENT for venous thrombosis and/or pulmonary embolus.HIGH RISK: Target INR is 2.5-3.5 for patients with mechanical heart valves.[id number] 04:31:00 Test Item Value Reference Range Comments PHOSPHORUS (BEAKER) (test qjnx=812) 2.4 mg/dL 2.3-4.7 [id number] 04:31:00 Test Item Value Reference Range Comments MAGNESIUM (BEAKER) (test grmp=414) 2.3 mg/dL 1.6-2.6 BASIC METABOLIC [id number] 04:31:00 Test Item Value Reference Range Comments SODIUM (BEAKER) (test 141 meq/L 136-145 ygye=301) POTASSIUM (BEAKER) (test 4.5 meq/L 3.5-5.1 qmwv=735) CHLORIDE (BEAKER) (test 106 meq/L 98-107 ckkm=523) CO2 (BEAKER) (test 31 meq/L 22-29 wimv=546) BLOOD UREA NITROGEN 26 mg/dL 7-21 (BEAKER) (test orsi=416) CREATININE (BEAKER) (test 1.41 mg/dL 0.57-1.25 cozk=402) GLUCOSE RANDOM (BEAKER) 63 mg/dL 70-105 (test kith=458) CALCIUM (BEAKER) (test 8.7 mg/dL 8.4-10.2 stko=556) EGFR (BEAKER) (test 45 mL/min/1.73 sq m ESTIMATED GFR IS NOT beug=6558) ACCURATE CREATININE CLEARANCE IN PREDICTING GLOMERULAR FILTRATION RATE. ESTIMATED GFR IS NOT APPLICABLE FOR DIALYSIS PATIENTS. CBC (HEMOGRAM ONLY)2018-07-12 04:23:00 Test Item Value Reference Range Comments WHITE BLOOD CELL COUNT (BEAKER) (test cana=506) 7.0 K/ L 3.5-10.5 RED BLOOD CELL COUNT (BEAKER) (test tbxj=389) 2.79 M/ L 3.93-5.22 HEMOGLOBIN (BEAKER) (test klux=639) 8.6 GM/DL 11.2-15.7 HEMATOCRIT (BEAKER) (test qpob=824) 28.3 % 34.1-44.9 MEAN CORPUSCULAR VOLUME (BEAKER) (test bcis=752) 101.4 fL 79.4-94.8 MEAN CORPUSCULAR HEMOGLOBIN (BEAKER) (test 30.8 pg 25.6-32.2 xswo=993) MEAN CORPUSCULAR HEMOGLOBIN CONC (BEAKER) (test 30.4 GM/DL 32.2-35.5 hdaw=654) RED CELL DISTRIBUTION WIDTH (BEAKER) (test 20.2 % 11.7-14.4 guvm=855) PLATELET COUNT (BEAKER) (test gdpz=922) 276 K/CU MM 150-450 MEAN PLATELET VOLUME (BEAKER) (test ilca=665) 10.3 fL 9.4-12.3 NUCLEATED RED BLOOD CELLS (BEAKER) (test 0 /100 WBC 0-0 zsif=744) POCT-GLUCOSE [id number] 00:19:00 Test Item Value Reference Range Comments POC-GLUCOSE METER (BEAKER) 404 mg/dL 70-110 TESTED AT [address] (test qntx=9804) [facility] [address] POCT-GLUCOSE [id number] 18:10:00 Test Item Value Reference Range Comments POC-GLUCOSE METER (BEAKER) 268 mg/dL 70-110 TESTED AT [address] (test rsra=5750) [facility] [address] POCT-GLUCOSE [id number] 12:22:00 Test Item Value Reference Range Comments POC-GLUCOSE METER (BEAKER) 221 mg/dL 70-110 TESTED AT [place] [id number] [facility] (test xgbq=5308) [facility] [address] RAD, CHEST, 1 VIEW, NON [id number] 07:27:00Reason for exam:->post opShould this be performed [...] [place] Verified Date/Time: 2018 07:27:41 Reading Location: [facility] Radiology Reading Room POCT- GLUCOSE [id number] 05:28:00 Test Item Value Reference Range Comments POC-GLUCOSE METER (BEAKER) 166 mg/dL 70-110 TESTED AT [address] (test hdpq=7625) [place] [address] [id number] 04:08:00 Test Item Value Reference Range Comments PHOSPHORUS (BEAKER) (test rhpe=745) 3.0 mg/dL 2.3-4.7 [id number] 04:08:00 Test Item Value Reference Range Comments MAGNESIUM (BEAKER) (test duvn=415) 1.8 mg/dL 1.6-2.6 BASIC METABOLIC [id number] 04:08:00 Test Item Value Reference Range Comments SODIUM (BEAKER) (test 138 meq/L 136-145 vnay=032) POTASSIUM (BEAKER) (test 4.6 meq/L 3.5-5.1 qzpz=307) CHLORIDE (BEAKER) (test 102 meq/L 98-107 mlot=079) CO2 (BEAKER) (test 29 meq/L 22-29 onas=575) BLOOD UREA NITROGEN 28 mg/dL 7-21 (BEAKER) (test wqoq=990) CREATININE (BEAKER) (test 1.64 mg/dL 0.57-1.25 rnkq=000) GLUCOSE RANDOM (BEAKER) 196 mg/dL 70-105 (test dljs=422) CALCIUM (BEAKER) (test 8.8 mg/dL 8.4-10.2 xqwn=664) EGFR (BEAKER) (test 37 mL/min/1.73 sq m ESTIMATED GFR IS NOT yzae=2968) ACCURATE CREATININE CLEARANCE IN PREDICTING GLOMERULAR FILTRATION RATE. ESTIMATED GFR IS NOT APPLICABLE FOR DIALYSIS PATIENTS. [id number] 04:06:00 Test Item Value Reference Range Comments PARTIAL THROMBOPLASTIN TIME (BEAKER) (test 51.7 seconds 22.5-36.0 sxqb=896) PROTHROMBIN TIME/[id number] 04:05:00 Test Item Value Reference Range Comments PROTIME (BEAKER) (test saob=965) 14.1 seconds 11.7-14.7 INR (BEAKER) (test wwhp=936) 1.1 <=5.9 RECOMMENDED COUMADIN/WARFARIN INR THERAPY RANGESSTANDARD DOSE: 2.0 - 3.0 Includes: PROPHYLAXIS forvenous thrombosis, systemic embolization; TREATMENT for venous thrombosis and/or pulmonary embolus.HIGH RISK: Target INR is 2.5-3.5 for patients with mechanical heart valves.CBC (HEMOGRAM ONLY)2018-07-11 03:53:00 Test Item Value Reference Range Comments WHITE BLOOD CELL COUNT (BEAKER) (test bgwm=693) 6.3 K/ L 3.5-10.5 RED BLOOD CELL COUNT (BEAKER) (test lvcu=126) 2.90 M/ L 3.93-5.22 HEMOGLOBIN (BEAKER) (test cyrh=004) 8.8 GM/DL 11.2-15.7 HEMATOCRIT (BEAKER) (test sscc=872) 29.7 % 34.1-44.9 MEAN CORPUSCULAR VOLUME (BEAKER) (test nfyw=988) 102.4 fL 79.4-94.8 MEAN CORPUSCULAR HEMOGLOBIN (BEAKER) (test 30.3 pg 25.6-32.2 kuac=142) MEAN CORPUSCULAR HEMOGLOBIN CONC (BEAKER) (test 29.6 GM/DL 32.2-35.5 pfsz=614) RED CELL DISTRIBUTION WIDTH (BEAKER) (test 21.0 % 11.7-14.4 gxgx=364) PLATELET COUNT (BEAKER) (test uych=491) 270 K/CU MM 150-450 MEAN PLATELET VOLUME (BEAKER) (test xcxo=311) 10.1 fL 9.4-12.3 NUCLEATED RED BLOOD CELLS (BEAKER) (test 0 /100 WBC 0-0 lbdi=996) POCT-GLUCOSE [id number] 00:38:00 Test Item Value Reference Range Comments POC-GLUCOSE METER (BEAKER) 198 mg/dL 70-110 TESTED AT [address] (test sqhw=1163) [facility] [address] POCT-GLUCOSE [id number] 18:42:00 Test Item Value Reference Range Comments POC-GLUCOSE METER (BEAKER) 240 mg/dL 70-110 TESTED AT [address] (test bypn=5534) [facility] [address] POCT-GLUCOSE [id number] 12:48:00 Test Item Value Reference Range Comments POC-GLUCOSE METER (BEAKER) 248 mg/dL 70-110 TESTED AT [address] (test gxwv=8345) [facility] [address] RAD, CHEST, 1 VIEW, NON [id number] 08:53:00Reason for exam:->post opShould this be performed [...] Mckeon Verified Date/Time: 07/10/2018 08:53:53 Reading Location: [address] Reading Room POCT-GLUCOSE [id number] 06:33:00 Test Item Value Reference Range Comments POC-GLUCOSE METER (BEAKER) 129 mg/dL 70-110 TESTED AT [facility] [address] [facility] (test ynsj=2750) [facility] [address] POCT-GLUCOSE [id number] 05:36:00 Test Item Value Reference Range Comments POC-GLUCOSE METER (BEAKER) 55 mg/dL 70-110 TESTED AT [place] [id number] [facility] (test iniq=9051) [facility] [address] [id number] 04:15:00 Test Item Value Reference Range Comments PHOSPHORUS (BEAKER) (test ueps=541) 3.0 mg/dL 2.3-4.7 [id number] 04:15:00 Test Item Value Reference Range Comments MAGNESIUM (BEAKER) (test caay=251) 2.0 mg/dL 1.6-2.6 BASIC METABOLIC [id number] 04:15:00 Test Item Value Reference Range Comments SODIUM (BEAKER) (test 138 meq/L 136-145 ngof=167) POTASSIUM (BEAKER) (test 4.5 meq/L 3.5-5.1 bezl=664) CHLORIDE (BEAKER) (test 103 meq/L 98-107 xuvk=495) CO2 (BEAKER) (test 27 meq/L 22-29 pufp=436) BLOOD UREA NITROGEN 32 mg/dL 7-21 (BEAKER) (test zvlo=007) CREATININE (BEAKER) (test 1.55 mg/dL 0.57-1.25 vtrn=917) GLUCOSE RANDOM (BEAKER) 121 mg/dL 70-105 (test mqxp=332) CALCIUM (BEAKER) (test 8.8 mg/dL 8.4-10.2 xmbz=242) EGFR (BEAKER) (test 40 mL/min/1.73 sq m ESTIMATED GFR IS NOT vpct=2333) ACCURATE CREATININE CLEARANCE IN PREDICTING GLOMERULAR FILTRATION RATE. ESTIMATED GFR IS NOT APPLICABLE FOR DIALYSIS PATIENTS. [id number] 03:41:00 Test Item Value Reference Range Comments PARTIAL THROMBOPLASTIN TIME (BEAKER) (test 50.1 seconds 22.5-36.0 tves=246) PROTHROMBIN [id number] 03:40:00 Test Item Value Reference Range Comments PROTIME (BEAKER) (test gfvs=932) 14.6 seconds 11.7-14.7 INR (BEAKER) (test vtbl=082) 1.1 <=5.9 RECOMMENDED COUMADIN/WARFARIN INR THERAPY RANGESSTANDARD DOSE: 2.0 - 3.0 Includes: PROPHYLAXIS forvenous thrombosis, systemic embolization; TREATMENT for venous thrombosis and/or pulmonary embolus.HIGH RISK: Target INR is 2.5-3.5 for patients with mechanical heart valves.CBC (HEMOGRAM ONLY)2018-07-10 03:38:00 Test Item Value Reference Range Comments WHITE BLOOD CELL COUNT (BEAKER) (test vftd=876) 6.3 K/ L 3.5-10.5 RED BLOOD CELL COUNT (BEAKER) (test uafg=705) 2.47 M/ L 3.93-5.22 HEMOGLOBIN (BEAKER) (test cpea=164) 7.6 GM/DL 11.2-15.7 HEMATOCRIT (BEAKER) (test ichx=879) 26.0 % 34.1-44.9 MEAN CORPUSCULAR VOLUME (BEAKER) (test wxmh=538) 105.3 fL 79.4-94.8 MEAN CORPUSCULAR HEMOGLOBIN (BEAKER) (test 30.8 pg 25.6-32.2 sbgl=889) MEAN CORPUSCULAR HEMOGLOBIN CONC (BEAKER) (test 29.2 GM/DL 32.2-35.5 dhyf=127) RED CELL DISTRIBUTION WIDTH (BEAKER) (test 17.1 % 11.7-14.4 vilm=140) PLATELET COUNT (BEAKER) (test zrxu=477) 301 K/CU MM 150-450 MEAN PLATELET VOLUME (BEAKER) (test hhas=668) 10.0 fL 9.4-12.3 NUCLEATED RED BLOOD CELLS (BEAKER) (test 0 /100 WBC 0-0 lxeb=119) POCT-GLUCOSE [id number] 00:03:00 Test Item Value Reference Range Comments POC-GLUCOSE METER (BEAKER) 317 mg/dL 70-110 Notified PAULA BERGER/TESTED AT [facility] (test ipks=8002) [address] [facility] [address] POCT-GLUCOSE [id number] 17:44:00 Test Item Value Reference Range Comments POC-GLUCOSE METER (BEAKER) 129 mg/dL 70-110 TESTED AT [address] (test mjoj=8760) [facility] [address] POCT-GLUCOSE [id number] 12:13:00 Test Item Value Reference Range Comments POC-GLUCOSE METER (BEAKER) 283 mg/dL 70-110 TESTED AT [address] (test upqa=4674) [facility] [address] RAD, CHEST, 1 VIEW, NON [id number] 07:35:00Reason for exam:->post opShould this be performed [...] MDReport Verified Date/Time: 07/09/2018 07:35:48 Reading Location: [facility] C013Y CT Body Reading Room POCT-GLUCOSE [id number] 05:13:00 Test Item Value Reference Range Comments POC-GLUCOSE METER (BEAKER) 186 mg/dL 70-110 TESTED AT [address] (test zqsf=1275) [facility] [address] [id number] 04:51:00 Test Item Value Reference Range Comments PHOSPHORUS (BEAKER) (test hehy=879) 3.8 mg/dL 2.3-4.7 [id number] 04:51:00 Test Item Value Reference Range Comments MAGNESIUM (BEAKER) (test degu=720) 2.1 mg/dL 1.6-2.6 BASIC METABOLIC [id number] 04:51:00 Test Item Value Reference Range Comments SODIUM (BEAKER) (test 138 meq/L 136-145 zyiu=288) POTASSIUM (BEAKER) (test 4.9 meq/L 3.5-5.1 bvyq=897) CHLORIDE (BEAKER) (test 103 meq/L 98-107 hewz=093) CO2 (BEAKER) (test 29 meq/L 22-29 dkkq=028) BLOOD UREA NITROGEN 33 mg/dL 7-21 (BEAKER) (test gypn=255) CREATININE (BEAKER) (test 1.78 mg/dL 0.57-1.25 ozxl=023) GLUCOSE RANDOM (BEAKER) 155 mg/dL 70-105 (test ztjs=721) CALCIUM (BEAKER) (test 9.0 mg/dL 8.4-10.2 ktim=633) EGFR (BEAKER) (test 34 mL/min/1.73 sq m ESTIMATED GFR IS NOT guvk=6853) ACCURATE CREATININE CLEARANCE IN PREDICTING GLOMERULAR FILTRATION RATE. ESTIMATED GFR IS NOT APPLICABLE FOR DIALYSIS PATIENTS. [id number] 04:30:00 Test Item Value Reference Range Comments PARTIAL THROMBOPLASTIN TIME (BEAKER) (test 63.2 seconds 22.5-36.0 rrjd=718) PROTHROMBIN [id number] 04:29:00 Test Item Value Reference Range Comments PROTIME (BEAKER) (test mwiz=169) 14.6 seconds 11.7-14.7 INR (BEAKER) (test gjns=717) 1.1 <=5.9 RECOMMENDED COUMADIN/WARFARIN INR THERAPY RANGESSTANDARD DOSE: 2.0 - 3.0 Includes: PROPHYLAXIS forvenous thrombosis, systemic embolization; TREATMENT for venous thrombosis and/or pulmonary embolus.HIGH RISK: Target INR is 2.5-3.5 for patients with mechanical heart valves.CBC (HEMOGRAM ONLY)2018-07-09 04:18:00 Test Item Value Reference Range Comments WHITE BLOOD CELL COUNT (BEAKER) (test ttxe=507) 6.8 K/ L 3.5-10.5 RED BLOOD CELL COUNT (BEAKER) (test fwjg=961) 2.73 M/ L 3.93-5.22 HEMOGLOBIN (BEAKER) (test xczt=624) 8.4 GM/DL 11.2-15.7 HEMATOCRIT (BEAKER) (test mhkd=308) 28.7 % 34.1-44.9 MEAN CORPUSCULAR VOLUME (BEAKER) (test sbbh=211) 105.1 fL 79.4-94.8 MEAN CORPUSCULAR HEMOGLOBIN (BEAKER) (test 30.8 pg 25.6-32.2 vpsd=669) MEAN CORPUSCULAR HEMOGLOBIN CONC (BEAKER) (test 29.3 GM/DL 32.2-35.5 qgsw=513) RED CELL DISTRIBUTION WIDTH (BEAKER) (test 17.2 % 11.7-14.4 yuyc=170) PLATELET COUNT (BEAKER) (test befn=686) 263 K/CU MM 150-450 MEAN PLATELET VOLUME (BEAKER) (test yjuy=661) 9.9 fL 9.4-12.3 NUCLEATED RED BLOOD CELLS (BEAKER) (test 0 /100 WBC 0-0 beua=396) POCT-GLUCOSE [id number] 23:27:00 Test Item Value Reference Range Comments POC-GLUCOSE METER (BEAKER) 141 mg/dL 70-110 TESTED AT [address] (test fpff=1403) [facility] [address] POCT-GLUCOSE [id number] 19:30:00 Test Item Value Reference Range Comments POC-GLUCOSE METER (BEAKER) 234 mg/dL 70-110 TESTED AT [address] (test alkb=8312) [facility] [address] POCT-GLUCOSE [id number] 11:55:00 Test Item Value Reference Range Comments POC-GLUCOSE METER (BEAKER) 317 mg/dL 70-110 TESTED AT [address] (test aefa=6349) [facility] [address] [id number] 05:14:00 Test Item Value Reference Range Comments PHOSPHORUS (BEAKER) (test cynu=500) 3.8 mg/dL 2.3-4.7 [id number] 05:14:00 Test Item Value Reference Range Comments MAGNESIUM (BEAKER) (test pxxe=764) 2.1 mg/dL 1.6-2.6 BASIC METABOLIC [id number] 05:14:00 Test Item Value Reference Range Comments SODIUM (BEAKER) (test 137 meq/L 136-145 raxd=923) POTASSIUM (BEAKER) (test 4.6 meq/L 3.5-5.1 tdcm=271) CHLORIDE (BEAKER) (test 103 meq/L 98-107 pmpp=313) CO2 (BEAKER) (test 26 meq/L 22-29 gucv=285) BLOOD UREA NITROGEN 31 mg/dL 7-21 (BEAKER) (test agma=159) CREATININE (BEAKER) (test 1.63 mg/dL 0.57-1.25 hfgo=326) GLUCOSE RANDOM (BEAKER) 244 mg/dL 70-105 (test yhtl=954) CALCIUM (BEAKER) (test 9.2 mg/dL 8.4-10.2 aedh=202) EGFR (BEAKER) (test 38 mL/min/1.73 sq m ESTIMATED GFR IS NOT khtp=9626) ACCURATE CREATININE CLEARANCE IN PREDICTING GLOMERULAR FILTRATION RATE. ESTIMATED GFR IS NOT APPLICABLE FOR DIALYSIS PATIENTS. RAD, CHEST, 1 VIEW, NON [id number] 04:48:00Reason for exam:->post opShould this be performed [...] Verified Date/Time: 07/08/2018 04:48:56 Reading Location : [address] Reading Room Electronicallysigned by: NAVI GARCIA M.D. on 07/08/2018 04:48 [id number] 04:24:00 Test Item Value Reference Range Comments PARTIAL THROMBOPLASTIN TIME (BEAKER) (test 54.7 seconds 22.5-36.0 yxqo=423) PROTHROMBIN [id number] 04:23:00 Test Item Value Reference Range Comments PROTIME (BEAKER) (test lvax=982) 14.8 seconds 11.7-14.7 INR (BEAKER) (test bjyb=042) 1.2 <=5.9 RECOMMENDED COUMADIN/WARFARIN INR THERAPY RANGESSTANDARD DOSE: 2.0 - 3.0 Includes: PROPHYLAXIS forvenous thrombosis, systemic embolization; TREATMENT for venous thrombosis and/or pulmonary embolus.HIGH RISK: Target INR is 2.5-3.5 for patients with mechanical heart valves.CBC (HEMOGRAM ONLY)2018-07-08 04:02:00 Test Item Value Reference Range Comments WHITE BLOOD CELL COUNT (BEAKER) (test sqil=206) 6.7 K/ L 3.5-10.5 RED BLOOD CELL COUNT (BEAKER) (test ohjv=338) 2.79 M/ L 3.93-5.22 HEMOGLOBIN (BEAKER) (test esua=061) 8.6 GM/DL 11.2-15.7 HEMATOCRIT (BEAKER) (test ljjm=976) 29.0 % 34.1-44.9 MEAN CORPUSCULAR VOLUME (BEAKER) (test ciuf=894) 103.9 fL 79.4-94.8 MEAN CORPUSCULAR HEMOGLOBIN (BEAKER) (test 30.8 pg 25.6-32.2 dqxg=439) MEAN CORPUSCULAR HEMOGLOBIN CONC (BEAKER) (test 29.7 GM/DL 32.2-35.5 cidh=180) RED CELL DISTRIBUTION WIDTH (BEAKER) (test 17.2 % 11.7-14.4 gqeq=567) PLATELET COUNT (BEAKER) (test ifhl=212) 295 K/CU MM 150-450 MEAN PLATELET VOLUME (BEAKER) (test uxur=176) 10.2 fL 9.4-12.3 NUCLEATED RED BLOOD CELLS (BEAKER) (test 0 /100 WBC 0-0 fdae=717) RAD, CHEST, 1 VIEW, NON [id number] 08:41:00Reason for exam:->post opShould this be performed [...] Verified Date/Time: 07/07/2018 08:41:39 Reading Location: [facility] Reading Room [id number] 05:37:00 Test Item Value Reference Range Comments PHOSPHORUS (BEAKER) (test twoi=989) 3.0 mg/dL 2.3-4.7 [id number] 05:37:00 Test Item Value Reference Range Comments MAGNESIUM (BEAKER) (test asub=225) 2.1 mg/dL 1.6-2.6 BASIC METABOLIC [id number] 05:37:00 Test Item Value Reference Range Comments SODIUM (BEAKER) (test 137 meq/L 136-145 pbie=862) POTASSIUM (BEAKER) (test 4.6 meq/L 3.5-5.1 uzhi=245) CHLORIDE (BEAKER) (test 102 meq/L 98-107 yhmb=143) CO2 (BEAKER) (test 25 meq/L 22-29 ccon=566) BLOOD UREA NITROGEN 27 mg/dL 7-21 (BEAKER) (test sris=019) CREATININE (BEAKER) (test 1.44 mg/dL 0.57-1.25 wepe=259) GLUCOSE RANDOM (BEAKER) 191 mg/dL 70-105 (test kxxw=584) CALCIUM (BEAKER) (test 9.2 mg/dL 8.4-10.2 txgo=701) EGFR (BEAKER) (test 43 mL/min/1.73 sq m ESTIMATED GFR IS NOT pubh=1124) ACCURATE CREATININE CLEARANCE IN PREDICTING GLOMERULAR FILTRATION RATE. ESTIMATED GFR IS NOT APPLICABLE FOR DIALYSIS PATIENTS. [id number] 05:12:00 Test Item Value Reference Range Comments PARTIAL THROMBOPLASTIN TIME (BEAKER) (test 42.9 seconds 22.5-36.0 bvcc=879) PROTHROMBIN TIME/[id number] 05:11:00 Test Item Value Reference Range Comments PROTIME (BEAKER) (test vcvo=511) 14.1 seconds 11.7-14.7 INR (BEAKER) (test vzui=026) 1.1 <=5.9 RECOMMENDED COUMADIN/WARFARIN INR THERAPY RANGESSTANDARD DOSE: 2.0 - 3.0 Includes: PROPHYLAXIS forvenous thrombosis, systemic embolization; TREATMENT for venous thrombosis and/or pulmonary embolus.HIGH RISK: Target INR is 2.5-3.5 for patients with mechanical heart valves.CBC (HEMOGRAM ONLY)2018-07-07 05:01:00 Test Item Value Reference Range Comments WHITE BLOOD CELL COUNT (BEAKER) (test sfcr=941) 6.9 K/ L 3.5-10.5 RED BLOOD CELL COUNT (BEAKER) (test nnvc=293) 2.84 M/ L 3.93-5.22 HEMOGLOBIN (BEAKER) (test ijzz=771) 8.8 GM/DL 11.2-15.7 HEMATOCRIT (BEAKER) (test vxwx=380) 29.2 % 34.1-44.9 MEAN CORPUSCULAR VOLUME (BEAKER) (test fnlw=885) 102.8 fL 79.4-94.8 MEAN CORPUSCULAR HEMOGLOBIN (BEAKER) (test 31.0 pg 25.6-32.2 sjvf=366) MEAN CORPUSCULAR HEMOGLOBIN CONC (BEAKER) (test 30.1 GM/DL 32.2-35.5 dgtk=180) RED CELL DISTRIBUTION WIDTH (BEAKER) (test 17.0 % 11.7-14.4 xlja=850) PLATELET COUNT (BEAKER) (test wrlq=280) 270 K/CU MM 150-450 MEAN PLATELET VOLUME (BEAKER) (test uhkv=600) 10.2 fL 9.4-12.3 NUCLEATED RED BLOOD CELLS (BEAKER) (test 0 /100 WBC 0-0 pfyc=397) RAD, CHEST, 1 VIEW, NON [id number] 17:48:00Reason for exam:->Confirm PICC line placementShould this [...] MDReport Verified Date/Time: 07/06/2018 17:48:54 Reading Location: [place] [id number] Consult Reading Room Electronically signed by: GEO RICO M.D. on 2018 05:48 [id number] 17:23:00 Test Item Value Reference Range Comments MAGNESIUM (BEAKER) (test nojw=080) 2.2 mg/dL 1.6-2.6 BASIC METABOLIC [id number] 17:23:00 Test Item Value Reference Range Comments SODIUM (BEAKER) (test 137 meq/L 136-145 toae=837) POTASSIUM (BEAKER) (test 4.9 meq/L 3.5-5.1 xzxp=046) CHLORIDE (BEAKER) (test 103 meq/L 98-107 fqje=024) CO2 (BEAKER) (test 25 meq/L 22-29 cqvr=447) BLOOD UREA NITROGEN 25 mg/dL 7-21 (BEAKER) (test qdxw=581) CREATININE (BEAKER) (test 1.41 mg/dL 0.57-1.25 zucm=943) GLUCOSE RANDOM (BEAKER) 219 mg/dL 70-105 (test baze=117) CALCIUM (BEAKER) (test 9.0 mg/dL 8.4-10.2 vtgp=634) EGFR (BEAKER) (test 45 mL/min/1.73 sq m ESTIMATED GFR IS NOT wckf=7779) ACCURATE CREATININE CLEARANCE IN PREDICTING GLOMERULAR FILTRATION RATE. ESTIMATED GFR IS NOT APPLICABLE FOR DIALYSIS PATIENTS. BLOOD GAS, [id number] 16:33:00 Test Item Value Reference Range Comments PH ARTERIAL (BEAKER) (test hfhf=101) 7.46 7.35-7.45 PCO2 ARTERIAL (BEAKER) (test emve=961) 42 mmHg 35-45 PO2 ARTERIAL (BEAKER) (test tlcy=793) 63 mmHg 80-90 O2 SATURATION ARTERIAL (BEAKER) (test swqv=331) 93.1 % 96.0-97.0 HCO3 ARTERIAL (BEAKER) (test xbxx=589) 29 mmol/L 21-29 BASE EXCESS ARTERIAL (BEAKER) (test ytsk=467) 4.4 mmol/L -2.0-3.0 PATIENT TEMPERATURE (BEAKER) (test ykkc=8333) 37.0 C FIO2 (BEAKER) (test awbo=5699) 32.0 % RAD, CHEST, 1 VIEW, NON [id number] 13:22:00Reason for exam:->post opShould this be performed at the bedside?->YesFINAL REPORT Chest one view. Clinical history: post op Comparison: 07/05/2018 Discussion: A frontal chest is provided. Cardiomediastinal contours are unchanged. A left IJ line is in stable position. There is mild pulmonary edema. No new consolidation. No pneumothorax. Small bilateral pleural effusions are present. Signed: Morgan Chengeport Verified Date/Time: 07/06/2018 13:22:02 Reading Location: [address] Consult Reading Room [id number] 04:30:00 Test Item Value Reference Range Comments PHOSPHORUS (BEAKER) (test mrou=100) 3.2 mg/dL 2.3-4.7 [id number] 04:30:00 Test Item Value Reference Range Comments MAGNESIUM (BEAKER) (test ezlt=466) 2.2 mg/dL 1.6-2.6 BASIC METABOLIC [id number] 04:30:00 Test Item Value Reference Range Comments SODIUM (BEAKER) (test 138 meq/L 136-145 sppz=296) POTASSIUM (BEAKER) (test 4.4 meq/L 3.5-5.1 fjxv=374) CHLORIDE (BEAKER) (test 104 meq/L 98-107 eguz=099) CO2 (BEAKER) (test 28 meq/L 22-29 ttpp=593) BLOOD UREA NITROGEN 25 mg/dL 7-21 (BEAKER) (test ojgj=532) CREATININE (BEAKER) (test 1.43 mg/dL 0.57-1.25 temb=107) GLUCOSE RANDOM (BEAKER) 207 mg/dL 70-105 (test odnz=376) CALCIUM (BEAKER) (test 8.9 mg/dL 8.4-10.2 xmxx=047) EGFR (BEAKER) (test 44 mL/min/1.73 sq m ESTIMATED GFR IS NOT uyxk=7082) ACCURATE CREATININE CLEARANCE IN PREDICTING GLOMERULAR FILTRATION RATE. ESTIMATED GFR IS NOT APPLICABLE FOR DIALYSIS PATIENTS. PROTHROMBIN TIME/[id number] 04:06:00 Test Item Value Reference Range Comments PROTIME (BEAKER) (test gdcw=926) 14.6 seconds 11.7-14.7 INR (BEAKER) (test huch=163) 1.1 <=5.9 RECOMMENDED COUMADIN/WARFARIN INR THERAPY RANGESSTANDARD DOSE: 2.0 - 3.0 Includes: PROPHYLAXIS forvenous thrombosis, systemic embolization; TREATMENT for venous thrombosis and/or pulmonary embolus.HIGH RISK: Target INR is 2.5-3.5 for patients with mechanical heart valves.[id number] 04:06:00 Test Item Value Reference Range Comments PARTIAL THROMBOPLASTIN TIME (BEAKER) (test 47.8 seconds 22.5-36.0 dkvy=378) CBC (HEMOGRAM ONLY)2018-07-06 03:53:00 Test Item Value Reference Range Comments WHITE BLOOD CELL COUNT (BEAKER) (test ivui=333) 7.1 K/ L 3.5-10.5 RED BLOOD CELL COUNT (BEAKER) (test vell=739) 2.77 M/ L 3.93-5.22 HEMOGLOBIN (BEAKER) (test bpxq=963) 8.4 GM/DL 11.2-15.7 HEMATOCRIT (BEAKER) (test obxi=438) 28.6 % 34.1-44.9 MEAN CORPUSCULAR VOLUME (BEAKER) (test lfme=388) 103.2 fL 79.4-94.8 MEAN CORPUSCULAR HEMOGLOBIN (BEAKER) (test 30.3 pg 25.6-32.2 hljk=370) MEAN CORPUSCULAR HEMOGLOBIN CONC (BEAKER) (test 29.4 GM/DL 32.2-35.5 omlz=893) RED CELL DISTRIBUTION WIDTH (BEAKER) (test 17.1 % 11.7-14.4 pnsd=356) PLATELET COUNT (BEAKER) (test xofi=493) 267 K/CU MM 150-450 MEAN PLATELET VOLUME (BEAKER) (test pbmx=390) 9.9 fL 9.4-12.3 NUCLEATED RED BLOOD CELLS (BEAKER) (test 0 /100 WBC 0-0 lean=735) HEPATIC FUNCTION [id number] 17:51:00 Test Item Value Reference Range Comments TOTAL PROTEIN (BEAKER) (test wqxg=548) 6.2 gm/dL 6.0-8.3 ALBUMIN (BEAKER) (test dicf=4008) 3.2 g/dL 3.5-5.0 BILIRUBIN TOTAL (BEAKER) (test nlfr=382) 0.7 mg/dL 0.2-1.2 BILIRUBIN DIRECT (BEAKER) (test nufc=881) 0.5 mg/dL 0.1-0.5 ALKALINE PHOSPHATASE (BEAKER) (test aqry=284) 84 U/L 40-150 AST (SGOT) (BEAKER) (test puus=554) 16 U/L 5-34 ALT (SGPT) (BEAKER) (test xkxi=220) 9 U/L 6-55 RAD, CHEST, 1 VIEW, NON [id number] 08:39:00Reason for exam:->post opShould this be performed [...] Mckeon Verified Date/Time: 07/05/2018 08:39:46 Reading Location: [facility] Reading Room [id number] 04:33:00 Test Item Value Reference Range Comments MAGNESIUM (BEAKER) (test 2.6 mg/dL 1.6-2.6 Specimen slightly hemolyzed bijl=625) [id number] 04:33:00 Test Item Value Reference Range Comments PHOSPHORUS (BEAKER) (test 2.9 mg/dL 2.3-4.7 Specimen slightly hemolyzed jwlv=821) BASIC METABOLIC [id number] 04:33:00 Test Item Value Reference Range Comments SODIUM (BEAKER) (test 139 meq/L 136-145 haql=375) POTASSIUM (BEAKER) (test 4.5 meq/L 3.5-5.1 Specimen slightly pbij=363) hemolyzed CHLORIDE (BEAKER) (test 105 meq/L 98-107 cert=739) CO2 (BEAKER) (test 28 meq/L 22-29 tusm=834) BLOOD UREA NITROGEN 26 mg/dL 7-21 (BEAKER) (test jxik=930) CREATININE (BEAKER) (test 1.32 mg/dL 0.57-1.25 Specimen slightly yhnn=703) hemolyzed GLUCOSE RANDOM (BEAKER) 111 mg/dL 70-105 (test cswf=253) CALCIUM (BEAKER) (test 8.5 mg/dL 8.4-10.2 rlhp=591) EGFR (BEAKER) (test 48 mL/min/1.73 sq m ESTIMATED GFR IS NOT teor=5569) ACCURATE CREATININE CLEARANCE IN PREDICTING GLOMERULAR FILTRATION RATE. ESTIMATED GFR IS NOT APPLICABLE FOR DIALYSIS PATIENTS. [id number] 04:23:00 Test Item Value Reference Range Comments PARTIAL THROMBOPLASTIN TIME (BEAKER) (test 49.0 seconds 22.5-36.0 ucji=998) PROTHROMBIN [id number] 04:22:00 Test Item Value Reference Range Comments PROTIME (BEAKER) (test uymo=288) 14.3 seconds 11.7-14.7 INR (BEAKER) (test bgpf=770) 1.1 <=5.9 RECOMMENDED COUMADIN/WARFARIN INR THERAPY RANGESSTANDARD DOSE: 2.0 - 3.0 Includes: PROPHYLAXIS forvenous thrombosis, systemic embolization; TREATMENT for venous thrombosis and/or pulmonary embolus.HIGH RISK: Target INR is 2.5-3.5 for patients with mechanical heart valves.CBC (HEMOGRAM ONLY)2018-07-05 04:13:00 Test Item Value Reference Range Comments WHITE BLOOD CELL COUNT (BEAKER) (test fgcg=966) 6.6 K/ L 3.5-10.5 RED BLOOD CELL COUNT (BEAKER) (test cxya=495) 2.60 M/ L 3.93-5.22 HEMOGLOBIN (BEAKER) (test mykw=756) 7.9 GM/DL 11.2-15.7 HEMATOCRIT (BEAKER) (test ijhw=187) 26.5 % 34.1-44.9 MEAN CORPUSCULAR VOLUME (BEAKER) (test bwva=192) 101.9 fL 79.4-94.8 MEAN CORPUSCULAR HEMOGLOBIN (BEAKER) (test 30.4 pg 25.6-32.2 feso=850) MEAN CORPUSCULAR HEMOGLOBIN CONC (BEAKER) (test 29.8 GM/DL 32.2-35.5 fleu=002) RED CELL DISTRIBUTION WIDTH (BEAKER) (test 17.4 % 11.7-14.4 ddav=706) PLATELET COUNT (BEAKER) (test qemy=914) 248 K/CU MM 150-450 MEAN PLATELET VOLUME (BEAKER) (test uniq=348) 10.4 fL 9.4-12.3 NUCLEATED RED BLOOD CELLS (BEAKER) (test 0 /100 WBC 0-0 pudj=141) POCT-GLUCOSE [id number] 18:22:00 Test Item Value Reference Range Comments POC-GLUCOSE METER (BEAKER) 166 mg/dL 70-110 TESTED AT [address] (test xbpb=9171) [facility] [address] RAD, CHEST, 1 VIEW, NON [id number] 08:37:00Reason for exam:->post opShould this be performed at the bedside?->YesFINAL REPORT AP view of the chest dated 07/04/2018 COMPARISON: 07/03/2018 CLINICAL INFORMATION: post op Comment: Heart remains enlarged. Thoracic aorta is ectatic. Stent is seen inthe descending thoracic aorta. Pulmonary vasculature is unremarkable. Lungs are clear. No pulmonary infiltrate or pleural effusion is present. Impression: No interval change. Signed: Virginia Diaz [facility] Verified Date/Time: 07/04/2018 08:37:54 Reading Location: [facility] Reading Room Electronically signed by: VIRGINIA DIAZ M.D. on 2018 08:37 [id number] 04:36:00 Test Item Value Reference Range Comments PARTIAL THROMBOPLASTIN TIME (BEAKER) (test 49.7 seconds 22.5-36.0 lnjv=934) PROTHROMBIN TIME/[id number] 04:35:00 Test Item Value Reference Range Comments PROTIME (BEAKER) (test yner=446) 15.0 seconds 11.7-14.7 INR (BEAKER) (test apmr=093) 1.2 <=5.9 RECOMMENDED COUMADIN/WARFARIN INR THERAPY RANGESSTANDARD DOSE: 2.0 - 3.0 Includes: PROPHYLAXIS forvenous thrombosis, systemic embolization; TREATMENT for venous thrombosis and/or pulmonary embolus.HIGH RISK: Target INR is 2.5-3.5 for patients with mechanical heart valves.[id number] 04:35:00 Test Item Value Reference Range Comments PHOSPHORUS (BEAKER) (test ikzm=512) 2.5 mg/dL 2.3-4.7 [id number] 04:35:00 Test Item Value Reference Range Comments MAGNESIUM (BEAKER) (test fchk=404) 2.2 mg/dL 1.6-2.6 BASIC METABOLIC [id number] 04:35:00 Test Item Value Reference Range Comments SODIUM (BEAKER) (test 138 meq/L 136-145 khdk=685) POTASSIUM (BEAKER) (test 3.8 meq/L 3.5-5.1 ktzs=463) CHLORIDE (BEAKER) (test 102 meq/L 98-107 tenz=224) CO2 (BEAKER) (test 30 meq/L 22-29 ryqt=374) BLOOD UREA NITROGEN 28 mg/dL 7-21 (BEAKER) (test tujc=079) CREATININE (BEAKER) (test 1.48 mg/dL 0.57-1.25 htbe=384) GLUCOSE RANDOM (BEAKER) 175 mg/dL 70-105 (test argx=228) CALCIUM (BEAKER) (test 8.6 mg/dL 8.4-10.2 gsbj=637) EGFR (BEAKER) (test 42 mL/min/1.73 sq m ESTIMATED GFR IS NOT afxt=8970) ACCURATE CREATININE CLEARANCE IN PREDICTING GLOMERULAR FILTRATION RATE. ESTIMATED GFR IS NOT APPLICABLE FOR DIALYSIS PATIENTS. CBC (HEMOGRAM ONLY)2018-07-04 04:16:00 Test Item Value Reference Range Comments WHITE BLOOD CELL COUNT (BEAKER) (test abls=446) 7.4 K/ L 3.5-10.5 RED BLOOD CELL COUNT (BEAKER) (test fcqr=729) 2.76 M/ L 3.93-5.22 HEMOGLOBIN (BEAKER) (test gkvy=609) 8.5 GM/DL 11.2-15.7 HEMATOCRIT (BEAKER) (test jyxj=937) 28.1 % 34.1-44.9 MEAN CORPUSCULAR VOLUME (BEAKER) (test cdil=153) 101.8 fL 79.4-94.8 MEAN CORPUSCULAR HEMOGLOBIN (BEAKER) (test 30.8 pg 25.6-32.2 iigp=446) MEAN CORPUSCULAR HEMOGLOBIN CONC (BEAKER) (test 30.2 GM/DL 32.2-35.5 ckde=856) RED CELL DISTRIBUTION WIDTH (BEAKER) (test 17.7 % 11.7-14.4 cefa=220) PLATELET COUNT (BEAKER) (test fgzp=128) 268 K/CU MM 150-450 MEAN PLATELET VOLUME (BEAKER) (test zqor=184) 10.2 fL 9.4-12.3 NUCLEATED RED BLOOD CELLS (BEAKER) (test 0 /100 WBC 0-0 ixlv=423) [id number] 10:56:00 Test Item Value Reference Range Comments POTASSIUM (BEAKER) (test hrtq=260) 4.3 meq/L 3.5-5.1 Check Serum Potassium level 30 minutes after IV potassium replacement completed.RAD, CHEST, 1 VIEW, NON [id number] 08:24:00Reason for exam:-> post opShould this be [...] MDReport Verified Date/Time: 07/03/2018 08:24:18 Reading Location: [facility] Reading Room POCT-GLUCOSE [id number] 08:16:00 Test Item Value Reference Range Comments POC-GLUCOSE METER (BEAKER) 164 mg/dL 70-110 TESTED AT [facility] [address] [facility] (test yyec=4874) [facility] [address] RAD, ABDOMEN/KUB, 1 VIEW [id number] 06:21:00Reason for exam:->abd painShould this be performed [...] MDReport Verified Date/Time: 07/03/2018 06:21:16 Reading Location: [address] Reading Room [id number] 04:00:00 Test Item Value Reference Range Comments PHOSPHORUS (BEAKER) (test rlor=559) 2.3 mg/dL 2.3-4.7 [id number] 04:00:00 Test Item Value Reference Range Comments MAGNESIUM (BEAKER) (test qnly=694) 1.9 mg/dL 1.6-2.6 BASIC METABOLIC [id number] 04:00:00 Test Item Value Reference Range Comments SODIUM (BEAKER) (test 139 meq/L 136-145 exfv=311) POTASSIUM (BEAKER) (test 3.5 meq/L 3.5-5.1 qbzn=037) CHLORIDE (BEAKER) (test 103 meq/L 98-107 vyjr=611) CO2 (BEAKER) (test 27 meq/L 22-29 rsow=659) BLOOD UREA NITROGEN 27 mg/dL 7-21 (BEAKER) (test aqvc=632) CREATININE (BEAKER) (test 1.40 mg/dL 0.57-1.25 touk=578) GLUCOSE RANDOM (BEAKER) 123 mg/dL 70-105 (test whzf=643) CALCIUM (BEAKER) (test 8.9 mg/dL 8.4-10.2 qmak=870) EGFR (BEAKER) (test 45 mL/min/1.73 sq m ESTIMATED GFR IS NOT fmjk=5463) ACCURATE CREATININE CLEARANCE IN PREDICTING GLOMERULAR FILTRATION RATE. ESTIMATED GFR IS NOT APPLICABLE FOR DIALYSIS PATIENTS. [id number] 03:59:00 Test Item Value Reference Range Comments PARTIAL THROMBOPLASTIN TIME (BEAKER) (test 48.9 seconds 22.5-36.0 rwbv=651) PROTHROMBIN [id number] 03:58:00 Test Item Value Reference Range Comments PROTIME (BEAKER) (test njrt=596) 15.3 seconds 11.7-14.7 INR (BEAKER) (test wigx=454) 1.2 <=5.9 RECOMMENDED COUMADIN/WARFARIN INR THERAPY RANGESSTANDARD DOSE: 2.0 - 3.0 Includes: PROPHYLAXIS forvenous thrombosis, systemic embolization; TREATMENT for venous thrombosis and/or pulmonary embolus.HIGH RISK: Target INR is 2.5-3.5 for patients with mechanical heart valves.CBC (HEMOGRAM ONLY)2018-07-03 03:39:00 Test Item Value Reference Range Comments WHITE BLOOD CELL COUNT (BEAKER) (test rlja=642) 8.1 K/ L 3.5-10.5 RED BLOOD CELL COUNT (BEAKER) (test vxnn=373) 2.90 M/ L 3.93-5.22 HEMOGLOBIN (BEAKER) (test pqaq=983) 9.0 GM/DL 11.2-15.7 HEMATOCRIT (BEAKER) (test vbsq=999) 29.4 % 34.1-44.9 MEAN CORPUSCULAR VOLUME (BEAKER) (test anyi=504) 101.4 fL 79.4-94.8 MEAN CORPUSCULAR HEMOGLOBIN (BEAKER) (test 31.0 pg 25.6-32.2 xdte=931) MEAN CORPUSCULAR HEMOGLOBIN CONC (BEAKER) (test 30.6 GM/DL 32.2-35.5 laoc=967) RED CELL DISTRIBUTION WIDTH (BEAKER) (test 17.8 % 11.7-14.4 sgzj=347) PLATELET COUNT (BEAKER) (test jhog=236) 245 K/CU MM 150-450 MEAN PLATELET VOLUME (BEAKER) (test recc=975) 9.8 fL 9.4-12.3 NUCLEATED RED BLOOD CELLS (BEAKER) (test 0 /100 WBC 0-0 vapt=790) OXYGEN SATURATION, [id number] 10:53:00 Test Item Value Reference Range Comments O2 SATURATION (MEASURED) (BEAKER) (test zarl=6249) 50.1 % OXYGEN SATURATION, [id number] 08:54:00 Test Item Value Reference Range Comments O2 SATURATION (MEASURED) (BEAKER) (test zkpk=5045) 45.3 % BLOOD GAS, [id number] 08:54:00 Test Item Value Reference Range Comments PH ARTERIAL (BEAKER) (test kxhz=095) 7.49 7.35-7.45 PCO2 ARTERIAL (BEAKER) (test jicy=951) 39 mmHg 35-45 PO2 ARTERIAL (BEAKER) (test pfmm=451) 64 mmHg 80-90 O2 SATURATION ARTERIAL (BEAKER) (test ufvt=348) 94.6 % 96.0-97.0 HCO3 ARTERIAL (BEAKER) (test euug=238) 29 mmol/L 21-29 BASE EXCESS ARTERIAL (BEAKER) (test zscl=888) 5.1 mmol/L -2.0-3.0 PATIENT TEMPERATURE (BEAKER) (test izxj=2582) 36.1 C FIO2 (BEAKER) (test sbie=4704) 32.0 % RAD, CHEST, 1 VIEW, NON [id number] 06:40:00Reason for exam:->ETTShould this be performed at [...] MDReport Verified Date/Time: 07/02/2018 06:40:32 Reading Location: [address] Transitional Reading Room CBC W/PLT COUNT & AUTO [id number] 05:31 :00 Test Item Value Reference Range Comments WHITE BLOOD CELL COUNT (BEAKER) (test ijyt=008) 7.9 K/ L 3.5-10.5 RED BLOOD CELL COUNT (BEAKER) (test aosg=244) 2.83 M/ L 3.93-5.22 HEMOGLOBIN (BEAKER) (test pzje=046) 8.6 GM/DL 11.2-15.7 HEMATOCRIT (BEAKER) (test lpfw=431) 28.4 % 34.1-44.9 MEAN CORPUSCULAR VOLUME (BEAKER) (test wwgn=087) 100.4 fL 79.4-94.8 MEAN CORPUSCULAR HEMOGLOBIN (BEAKER) (test 30.4 pg 25.6-32.2 drve=732) MEAN CORPUSCULAR HEMOGLOBIN CONC (BEAKER) (test 30.3 GM/DL 32.2-35.5 imxt=614) RED CELL DISTRIBUTION WIDTH (BEAKER) (test 17.9 % 11.7-14.4 nyzs=267) PLATELET COUNT (BEAKER) (test scnh=635) 222 K/CU MM 150-450 MEAN PLATELET VOLUME (BEAKER) (test muto=626) 9.9 fL 9.4-12.3 NUCLEATED RED BLOOD CELLS (BEAKER) (test 0 /100 WBC 0-0 scje=081) NEUTROPHILS RELATIVE PERCENT (BEAKER) (test 85 % yvia=090) LYMPHOCYTES RELATIVE PERCENT (BEAKER) (test 6 % pbuu=247) MONOCYTES RELATIVE PERCENT (BEAKER) (test 8 % iltg=966) EOSINOPHILS RELATIVE PERCENT (BEAKER) (test 1 % qnha=287) BASOPHILS RELATIVE PERCENT (BEAKER) (test 0 % ogby=436) NEUTROPHILS ABSOLUTE COUNT (BEAKER) (test 6.67 K/ L 1.56-6.13 wqqw=697) LYMPHOCYTES ABSOLUTE COUNT (BEAKER) (test 0.46 K/ L 1.18-3.74 pkle=971) MONOCYTES ABSOLUTE COUNT (BEAKER) (test 0.64 K/ L 0.24-0.36 zuui=960) EOSINOPHILS ABSOLUTE COUNT (BEAKER) (test 0.06 K/ L 0.04-0.36 mfut=555) BASOPHILS ABSOLUTE COUNT (BEAKER) (test 0.02 K/ L 0.01-0.08 zdws=100) IMMATURE GRANULOCYTES-RELATIVE PERCENT (BEAKER) 1 % 0-1 (test kffu=1418) BASIC METABOLIC [id number] 04:54:00 Test Item Value Reference Range Comments SODIUM (BEAKER) (test 140 meq/L 136-145 hiuv=449) POTASSIUM (BEAKER) (test 3.7 meq/L 3.5-5.1 pjvm=084) CHLORIDE (BEAKER) (test 104 meq/L 98-107 ubkr=122) CO2 (BEAKER) (test 28 meq/L 22-29 yohj=815) BLOOD UREA NITROGEN 29 mg/dL 7-21 (BEAKER) (test adlg=918) CREATININE (BEAKER) (test 1.49 mg/dL 0.57-1.25 ofia=729) GLUCOSE RANDOM (BEAKER) 107 mg/dL 70-105 (test ybir=755) CALCIUM (BEAKER) (test 8.9 mg/dL 8.4-10.2 gsnm=388) EGFR (BEAKER) (test 42 mL/min/1.73 sq m ESTIMATED GFR IS NOT gird=0506) ACCURATE CREATININE CLEARANCE IN PREDICTING GLOMERULAR FILTRATION RATE. ESTIMATED GFR IS NOT APPLICABLE FOR DIALYSIS PATIENTS. BASIC METABOLIC [id number] 18:41:00 Test Item Value Reference Range Comments SODIUM (BEAKER) (test 140 meq/L 136-145 mpnk=868) POTASSIUM (BEAKER) (test 4.1 meq/L 3.5-5.1 slvb=110) CHLORIDE (BEAKER) (test 104 meq/L 98-107 sgrn=517) CO2 (BEAKER) (test 25 meq/L 22-29 dyao=489) BLOOD UREA NITROGEN 31 mg/dL 7-21 (BEAKER) (test qyqw=109) CREATININE (BEAKER) (test 1.55 mg/dL 0.57-1.25 naqh=352) GLUCOSE RANDOM (BEAKER) 127 mg/dL 70-105 (test kkii=816) CALCIUM (BEAKER) (test 9.0 mg/dL 8.4-10.2 xaod=032) EGFR (BEAKER) (test 40 mL/min/1.73 sq m ESTIMATED GFR IS NOT fbkl=3041) ACCURATE CREATININE CLEARANCE IN PREDICTING GLOMERULAR FILTRATION RATE. ESTIMATED GFR IS NOT APPLICABLE FOR DIALYSIS PATIENTS. BLOOD GAS, [id number] 18:12:00 Test Item Value Reference Range Comments PH ARTERIAL (BEAKER) (test fzpz=356) 7.50 7.35-7.45 PCO2 ARTERIAL (BEAKER) (test wqcy=598) 39 mmHg 35-45 PO2 ARTERIAL (BEAKER) (test kseg=012) 59 mmHg 80-90 O2 SATURATION ARTERIAL (BEAKER) (test mtnl=384) 92.7 % 96.0-97.0 HCO3 ARTERIAL (BEAKER) (test bftv=225) 30 mmol/L 21-29 BASE EXCESS ARTERIAL (BEAKER) (test kbtx=877) 6.0 mmol/L -2.0-3.0 PATIENT TEMPERATURE (BEAKER) (test cyfj=9689) 36.9 C FIO2 (BEAKER) (test rbdm=8840) 32.0 % RAD, CHEST, 1 VIEW, NON [id number] 07:32:00Reason for exam:->ETTShould this be performed at the bedside?->YesFINAL REPORT Chest one view. Clinical history: ETT Comparison: 06/30/2018 Discussion: A frontal chest is provided. Cardiomediastinal contours are unchanged. ET has been removed. Left IJ line is unchanged. There is unchanged mild vascular congestion and interstitial edema. Probable small left effusion. No pneumothorax. Signed: Morgan Cheng Verified Date/Time: 07/01/2018 07:32: 43 Reading Location: [address] Neuro Reading Room BASIC METABOLIC [id number] 06:20:00 Test Item Value Reference Range Comments SODIUM (BEAKER) (test 142 meq/L 136-145 hugy=096) POTASSIUM (BEAKER) (test 4.3 meq/L 3.5-5.1 mowf=879) CHLORIDE (BEAKER) (test 106 meq/L 98-107 ktxc=576) CO2 (BEAKER) (test 27 meq/L 22-29 zmfh=928) BLOOD UREA NITROGEN 34 mg/dL 7-21 (BEAKER) (test nozb=694) CREATININE (BEAKER) (test 1.67 mg/dL 0.57-1.25 tuhe=389) GLUCOSE RANDOM (BEAKER) 130 mg/dL 70-105 (test nnna=072) CALCIUM (BEAKER) (test 9.1 mg/dL 8.4-10.2 mmds=776) EGFR (BEAKER) (test 37 mL/min/1.73 sq m ESTIMATED GFR IS NOT yjcr=2164) ACCURATE CREATININE CLEARANCE IN PREDICTING GLOMERULAR FILTRATION RATE. ESTIMATED GFR IS NOT APPLICABLE FOR DIALYSIS PATIENTS. CBC W/PLT COUNT & AUTO [id number] 05:56:00 Test Item Value Reference Range Comments WHITE BLOOD CELL COUNT (BEAKER) (test kfnc=978) 6.9 K/ L 3.5-10.5 RED BLOOD CELL COUNT (BEAKER) (test oqed=448) 2.88 M/ L 3.93-5.22 HEMOGLOBIN (BEAKER) (test fxab=643) 8.9 GM/DL 11.2-15.7 HEMATOCRIT (BEAKER) (test lkmo=056) 29.5 % 34.1-44.9 MEAN CORPUSCULAR VOLUME (BEAKER) (test ozns=596) 102.4 fL 79.4-94.8 MEAN CORPUSCULAR HEMOGLOBIN (BEAKER) (test 30.9 pg 25.6-32.2 uwzz=210) MEAN CORPUSCULAR HEMOGLOBIN CONC (BEAKER) (test 30.2 GM/DL 32.2-35.5 wzob=903) RED CELL DISTRIBUTION WIDTH (BEAKER) (test 17.8 % 11.7-14.4 jmhb=146) PLATELET COUNT (BEAKER) (test keyw=403) 211 K/CU MM 150-450 MEAN PLATELET VOLUME (BEAKER) (test oyyr=646) 9.6 fL 9.4-12.3 NUCLEATED RED BLOOD CELLS (BEAKER) (test 0 /100 WBC 0-0 zzjb=583) NEUTROPHILS RELATIVE PERCENT (BEAKER) (test 86 % vbqq=886) LYMPHOCYTES RELATIVE PERCENT (BEAKER) (test 5 % sqcs=020) MONOCYTES RELATIVE PERCENT (BEAKER) (test 8 % lwnd=286) EOSINOPHILS RELATIVE PERCENT (BEAKER) (test 0 % gsfb=051) BASOPHILS RELATIVE PERCENT (BEAKER) (test 0 % fnec=034) NEUTROPHILS ABSOLUTE COUNT (BEAKER) (test 5.94 K/ L 1.56-6.13 msvf=984) LYMPHOCYTES ABSOLUTE COUNT (BEAKER) (test 0.37 K/ L 1.18-3.74 sqci=668) MONOCYTES ABSOLUTE COUNT (BEAKER) (test 0.53 K/ L 0.24-0.36 cbwx=696) EOSINOPHILS ABSOLUTE COUNT (BEAKER) (test 0.02 K/ L 0.04-0.36 mxwi=780) BASOPHILS ABSOLUTE COUNT (BEAKER) (test 0.01 K/ L 0.01-0.08 jkjl=366) IMMATURE GRANULOCYTES-RELATIVE PERCENT (BEAKER) 0 % 0-1 (test wwqu=9906) [id number] 15:31:00 Test Item Value Reference Range Comments MAGNESIUM (BEAKER) (test eyfu=337) 2.2 mg/dL 1.6-2.6 BASIC METABOLIC [id number] 15:31:00 Test Item Value Reference Range Comments SODIUM (BEAKER) (test 137 meq/L 136-145 cvpd=839) POTASSIUM (BEAKER) (test 4.5 meq/L 3.5-5.1 rcii=036) CHLORIDE (BEAKER) (test 102 meq/L 98-107 wpvy=906) CO2 (BEAKER) (test 24 meq/L 22-29 ezan=741) BLOOD UREA NITROGEN 36 mg/dL 7-21 (BEAKER) (test hdvg=709) CREATININE (BEAKER) (test 1.78 mg/dL 0.57-1.25 lqsc=703) GLUCOSE RANDOM (BEAKER) 179 mg/dL 70-105 (test zbvp=628) CALCIUM (BEAKER) (test 8.8 mg/dL 8.4-10.2 ugni=219) EGFR (BEAKER) (test 34 mL/min/1.73 sq m ESTIMATED GFR IS NOT dird=4787) ACCURATE CREATININE CLEARANCE IN PREDICTING GLOMERULAR FILTRATION RATE. ESTIMATED GFR IS NOT APPLICABLE FOR DIALYSIS PATIENTS. CBC W/PLT COUNT & AUTO [id number] 15:17:00 Test Item Value Reference Range Comments WHITE BLOOD CELL COUNT (BEAKER) (test jwbq=247) 7.3 K/ L 3.5-10.5 RED BLOOD CELL COUNT (BEAKER) (test htqs=467) 3.02 M/ L 3.93-5.22 HEMOGLOBIN (BEAKER) (test qhji=682) 9.5 GM/DL 11.2-15.7 HEMATOCRIT (BEAKER) (test cprr=139) 31.3 % 34.1-44.9 MEAN CORPUSCULAR VOLUME (BEAKER) (test vkvj=067) 103.6 fL 79.4-94.8 MEAN CORPUSCULAR HEMOGLOBIN (BEAKER) (test 31.5 pg 25.6-32.2 dmtf=724) MEAN CORPUSCULAR HEMOGLOBIN CONC (BEAKER) (test 30.4 GM/DL 32.2-35.5 rgrd=374) RED CELL DISTRIBUTION WIDTH (BEAKER) (test 17.8 % 11.7-14.4 valp=851) PLATELET COUNT (BEAKER) (test fpfi=171) 229 K/CU MM 150-450 MEAN PLATELET VOLUME (BEAKER) (test bpzm=761) 9.7 fL 9.4-12.3 NUCLEATED RED BLOOD CELLS (BEAKER) (test 0 /100 WBC 0-0 pllj=423) NEUTROPHILS RELATIVE PERCENT (BEAKER) (test 91 % qehp=494) LYMPHOCYTES RELATIVE PERCENT (BEAKER) (test 3 % cclv=727) MONOCYTES RELATIVE PERCENT (BEAKER) (test 5 % ljxw=209) EOSINOPHILS RELATIVE PERCENT (BEAKER) (test 0 % mruo=335) BASOPHILS RELATIVE PERCENT (BEAKER) (test 0 % xxeq=702) NEUTROPHILS ABSOLUTE COUNT (BEAKER) (test 6.62 K/ L 1.56-6.13 unuu=671) LYMPHOCYTES ABSOLUTE COUNT (BEAKER) (test 0.23 K/ L 1.18-3.74 fhgz=313) MONOCYTES ABSOLUTE COUNT (BEAKER) (test 0.39 K/ L 0.24-0.36 itjp=963) EOSINOPHILS ABSOLUTE COUNT (BEAKER) (test 0.00 K/ L 0.04-0.36 zpgh=923) BASOPHILS ABSOLUTE COUNT (BEAKER) (test 0.02 K/ L 0.01-0.08 avow=919) IMMATURE GRANULOCYTES-RELATIVE PERCENT (BEAKER) 0 % 0-1 (test lole=1543) RAD, CHEST, 1 VIEW, NON [id number] 08:50:00Reason for exam:->ETTShould this be performed at [...] MDReport Verified Date/Time: 06/30/2018 08:50:44 Reading Location: [address] Ultrasound Reading Room [id number] 06:52:00 Test Item Value Reference Range Comments ACTIVATED CLOTTING TIME 147 sec TESTED AT [address] (BEAKER) (test nixf=989) [place] [address] [id number] 06:52:00 Test Item Value Reference Range Comments ACTIVATED CLOTTING TIME 252 sec TESTED AT [address] (BEAKER) (test hkfj=885) [place] [address] [id number] 06:52:00 Test Item Value Reference Range Comments ACTIVATED CLOTTING TIME 257 sec TESTED AT [address] (BEAKER) (test ahdb=483) [place] [address] [id number] 06:52:00 Test Item Value Reference Range Comments ACTIVATED CLOTTING TIME 246 sec TESTED AT [address] (BEAKER) (test kvyv=064) [place] [address] LACTIC ACID, [id number] 05:16:00 Test Item Value Reference Range Comments LACTATE BLOOD ARTERIAL (2) (BEAKER) (test 1.0 mmol/L 0.5-2.2 jfgw=0190) BLOOD GAS, [id number] 05:06:00 Test Item Value Reference Range Comments PH ARTERIAL (BEAKER) (test vqvg=998) 7.38 7.35-7.45 PCO2 ARTERIAL (BEAKER) (test cgvr=612) 40 mmHg 35-45 PO2 ARTERIAL (BEAKER) (test wwjy=811) 107 mmHg 80-90 O2 SATURATION ARTERIAL (BEAKER) (test usic=534) 97.9 % 96.0-97.0 HCO3 ARTERIAL (BEAKER) (test okyu=894) 23 mmol/L 21-29 BASE EXCESS ARTERIAL (BEAKER) (test dxqp=076) -2.1 mmol/L -2.0-3.0 PATIENT TEMPERATURE (BEAKER) (test knom=4047) 36.7 C FIO2 (BEAKER) (test uyit=0964) 60.0 % CBC W/PLT COUNT & AUTO [id number] 04:59:00 Test Item Value Reference Range Comments WHITE BLOOD CELL COUNT (BEAKER) (test skwf=682) 8.9 K/ L 3.5-10.5 RED BLOOD CELL COUNT (BEAKER) (test xiup=368) 3.28 M/ L 3.93-5.22 HEMOGLOBIN (BEAKER) (test ddog=010) 10.0 GM/DL 11.2-15.7 HEMATOCRIT (BEAKER) (test rxlk=613) 34.4 % 34.1-44.9 MEAN CORPUSCULAR VOLUME (BEAKER) (test dwuf=808) 104.9 fL 79.4-94.8 MEAN CORPUSCULAR HEMOGLOBIN (BEAKER) (test 30.5 pg 25.6-32.2 bdwt=020) MEAN CORPUSCULAR HEMOGLOBIN CONC (BEAKER) (test 29.1 GM/DL 32.2-35.5 muhf=445) RED CELL DISTRIBUTION WIDTH (BEAKER) (test 17.6 % 11.7-14.4 pkwm=306) PLATELET COUNT (BEAKER) (test rqpk=144) 276 K/CU MM 150-450 MEAN PLATELET VOLUME (BEAKER) (test gwqg=624) 9.7 fL 9.4-12.3 NUCLEATED RED BLOOD CELLS (BEAKER) (test 0 /100 WBC 0-0 ewdb=121) NEUTROPHILS RELATIVE PERCENT (BEAKER) (test 90 % acsr=335) LYMPHOCYTES RELATIVE PERCENT (BEAKER) (test 3 % zdqe=643) MONOCYTES RELATIVE PERCENT (BEAKER) (test 6 % bwga=142) EOSINOPHILS RELATIVE PERCENT (BEAKER) (test 0 % pylz=207) BASOPHILS RELATIVE PERCENT (BEAKER) (test 0 % srhq=961) NEUTROPHILS ABSOLUTE COUNT (BEAKER) (test 8.00 K/ L 1.56-6.13 zjou=990) LYMPHOCYTES ABSOLUTE COUNT (BEAKER) (test 0.30 K/ L 1.18-3.74 chud=814) MONOCYTES ABSOLUTE COUNT (BEAKER) (test 0.51 K/ L 0.24-0.36 lgga=077) EOSINOPHILS ABSOLUTE COUNT (BEAKER) (test 0.01 K/ L 0.04-0.36 lewb=468) BASOPHILS ABSOLUTE COUNT (BEAKER) (test 0.02 K/ L 0.01-0.08 jczn=915) IMMATURE GRANULOCYTES-RELATIVE PERCENT (BEAKER) 1 % 0-1 (test xspq=7459) B-TYPE NATRIURETIC FACTOR (BNP)2018-06-30 04:19:00 Test Item Value Reference Range Comments B-TYPE NATRIURETIC PEPTIDE (BEAKER) (test 09782 pg/mL 0-100 smdc=847) HEPATIC FUNCTION [id number] 04:01:00 Test Item Value Reference Range Comments TOTAL PROTEIN (BEAKER) (test aypg=272) 6.5 gm/dL 6.0-8.3 ALBUMIN (BEAKER) (test mbkp=7661) 3.4 g/dL 3.5-5.0 BILIRUBIN TOTAL (BEAKER) (test buul=959) 1.2 mg/dL 0.2-1.2 BILIRUBIN DIRECT (BEAKER) (test pxse=514) 0.8 mg/dL 0.1-0.5 ALKALINE PHOSPHATASE (BEAKER) (test dgwa=708) 103 U/L 40-150 AST (SGOT) (BEAKER) (test vtsf=724) 17 U/L 5-34 ALT (SGPT) (BEAKER) (test vuzq=041) 15 U/L 6-55 RAD, CHEST, 1 VIEW, NON [id number] 02:31:00Reason for exam:->ETTShould this be performed at [...] Spann Verified Date/Time: 06/30/2018 02:31:37 Reading Location: [facility] Transitional Reading Room [id number] 02:27:00 Test Item Value Reference Range Comments PARTIAL THROMBOPLASTIN TIME (BEAKER) (test 39.5 seconds 22.5-36.0 tybr=492) PROTHROMBIN [id number] 02:26:00 Test Item Value Reference Range Comments PROTIME (BEAKER) (test dsvi=887) 16.5 seconds 11.7-14.7 INR (BEAKER) (test owds=141) 1.3 <=5.9 RECOMMENDED COUMADIN/WARFARIN INR THERAPY RANGESSTANDARD DOSE: 2.0 - 3.0 Includes: PROPHYLAXIS forvenous thrombosis, systemic embolization; TREATMENT for venous thrombosis and/or pulmonary embolus.HIGH RISK: Target INR is 2.5-3.5 for patients with mechanical heart valves.BASIC METABOLIC [id number] 02:09: 00 Test Item Value Reference Range Comments SODIUM (BEAKER) (test 137 meq/L 136-145 fudm=406) POTASSIUM (BEAKER) (test 4.9 meq/L 3.5-5.1 xtsx=292) CHLORIDE (BEAKER) (test 103 meq/L 98-107 xqwb=379) CO2 (BEAKER) (test 23 meq/L 22-29 hskv=486) BLOOD UREA NITROGEN 32 mg/dL 7-21 (BEAKER) (test jvyn=103) CREATININE (BEAKER) (test 1.74 mg/dL 0.57-1.25 foul=919) GLUCOSE RANDOM (BEAKER) 143 mg/dL 70-105 (test stdl=214) CALCIUM (BEAKER) (test 8.8 mg/dL 8.4-10.2 mihr=329) EGFR (BEAKER) (test 35 mL/min/1.73 sq m ESTIMATED GFR IS NOT ribt=3134) ACCURATE CREATININE CLEARANCE IN PREDICTING GLOMERULAR FILTRATION RATE. ESTIMATED GFR IS NOT APPLICABLE FOR DIALYSIS PATIENTS. LACTIC ACID, [id number] 02:06:00 Test Item Value Reference Range Comments LACTATE BLOOD ARTERIAL (2) (BEAKER) (test 0.8 mmol/L 0.5-2.2 eukl=7985) OXYGEN SATURATION, [id number] 01:59:00 Test Item Value Reference Range Comments O2 SATURATION (MEASURED) (BEAKER) (test ftdo=3548) 79.3 % BLOOD GAS, [id number] 01:58:00 Test Item Value Reference Range Comments PH ARTERIAL (BEAKER) (test gbjl=827) 7.34 7.35-7.45 PCO2 ARTERIAL (BEAKER) (test rewj=498) 50 mmHg 35-45 PO2 ARTERIAL (BEAKER) (test updr=049) 78 mmHg 80-90 O2 SATURATION ARTERIAL (BEAKER) (test utfa=035) 95.4 % 96.0-97.0 HCO3 ARTERIAL (BEAKER) (test mttg=671) 27 mmol/L 21-29 BASE EXCESS ARTERIAL (BEAKER) (test lazb=742) 0.3 mmol/L -2.0-3.0 PATIENT TEMPERATURE (BEAKER) (test sfru=6154) 35.8 C FIO2 (BEAKER) (test recd=2762) 60.0 % CBC W/PLT COUNT & AUTO [id number] 01:57:00 Test Item Value Reference Range Comments WHITE BLOOD CELL COUNT (BEAKER) (test mejg=497) 9.7 K/ L 3.5-10.5 RED BLOOD CELL COUNT (BEAKER) (test vxpn=025) 3.18 M/ L 3.93-5.22 HEMOGLOBIN (BEAKER) (test lzqv=621) 9.8 GM/DL 11.2-15.7 HEMATOCRIT (BEAKER) (test rklg=436) 33.3 % 34.1-44.9 MEAN CORPUSCULAR VOLUME (BEAKER) (test dxee=664) 104.7 fL 79.4-94.8 MEAN CORPUSCULAR HEMOGLOBIN (BEAKER) (test 30.8 pg 25.6-32.2 odqb=257) MEAN CORPUSCULAR HEMOGLOBIN CONC (BEAKER) (test 29.4 GM/DL 32.2-35.5 cqyb=516) RED CELL DISTRIBUTION WIDTH (BEAKER) (test 17.5 % 11.7-14.4 hsgq=777) PLATELET COUNT (BEAKER) (test qmhn=640) 289 K/CU MM 150-450 MEAN PLATELET VOLUME (BEAKER) (test bxkc=464) 9.7 fL 9.4-12.3 NUCLEATED RED BLOOD CELLS (BEAKER) (test 0 /100 WBC 0-0 ersq=901) NEUTROPHILS RELATIVE PERCENT (BEAKER) (test 88 % wdyw=206) LYMPHOCYTES RELATIVE PERCENT (BEAKER) (test 5 % tbpq=732) MONOCYTES RELATIVE PERCENT (BEAKER) (test 4 % jcni=671) EOSINOPHILS RELATIVE PERCENT (BEAKER) (test 1 % hunv=036) BASOPHILS RELATIVE PERCENT (BEAKER) (test 0 % xsge=125) NEUTROPHILS ABSOLUTE COUNT (BEAKER) (test 8.53 K/ L 1.56-6.13 noro=136) LYMPHOCYTES ABSOLUTE COUNT (BEAKER) (test 0.48 K/ L 1.18-3.74 hpay=103) MONOCYTES ABSOLUTE COUNT (BEAKER) (test 0.41 K/ L 0.24-0.36 jwwp=107) EOSINOPHILS ABSOLUTE COUNT (BEAKER) (test 0.13 K/ L 0.04-0.36 rhoh=654) BASOPHILS ABSOLUTE COUNT (BEAKER) (test 0.04 K/ L 0.01-0.08 xhui=242) IMMATURE GRANULOCYTES-RELATIVE PERCENT (BEAKER) 1 % 0-1 (test pscm=1943) FILTER IONIZED [id number] 23:29:00 Test Item Value Reference Range Comments FILTER IONIZED CALCIUM (BEAKER) (test ihfq=7474) 1.14 mmol/L Reference Range: No NormalsBLOOD GAS, [id number] 23:29:00 Test Item Value Reference Range Comments PH ARTERIAL (BEAKER) (test bzhz=344) 7.38 7.35-7.45 PCO2 ARTERIAL (BEAKER) (test ywve=569) 49 mmHg 35-45 PO2 ARTERIAL (BEAKER) (test uirm=044) 202 mmHg 80-90 O2 SATURATION ARTERIAL (BEAKER) (test absp=278) 99.4 % 96.0-97.0 HCO3 ARTERIAL (BEAKER) (test olbf=507) 29 mmol/L 21-29 BASE EXCESS ARTERIAL (BEAKER) (test atkh=231) 2.6 mmol/L -2.0-3.0 PATIENT TEMPERATURE (BEAKER) (test ljmf=5505) 35.6 C FIO2 (BEAKER) (test szcq=2232) 100.0 % HGB/HCT (H&H) - STAT [id number] 23:28:00 Test Item Value Reference Range Comments HEMOGLOBIN (BEAKER) (test nzhn=523) 10.7 g/dL 12.0-15.0 HEMATOCRIT (BEAKER) (test vrow=173) 31.0 % 36.0-45.0 GLUCOSE-STAT [id number] 23:25:00 Test Item Value Reference Range Comments GLUCOSE RANDOM (BEAKER) (test upcl=891) 97 mg/dL 70-110 SODIUM NA-STAT [id number] 23:25:00 Test Item Value Reference Range Comments SODIUM (BEAKER) (test cufc=004) 137 meq/L 135-148 POTASSIUM-STAT [id number] 23:25:00 Test Item Value Reference Range Comments POTASSIUM (BEAKER) (test kajz=596) 4.4 meq/L 3.6-5.5 B-TYPE NATRIURETIC FACTOR (BNP)2018-06-29 21:59:00 Test Item Value Reference Range Comments B-TYPE NATRIURETIC PEPTIDE (BEAKER) (test 40282 pg/mL 0-100 sdnv=932) BASIC METABOLIC [id number] 21:31:00 Test Item Value Reference Range Comments SODIUM (BEAKER) (test 140 meq/L 136-145 oksr=953) POTASSIUM (BEAKER) (test 4.6 meq/L 3.5-5.1 vxia=998) CHLORIDE (BEAKER) (test 104 meq/L 98-107 onny=073) CO2 (BEAKER) (test 25 meq/L 22-29 bmff=797) BLOOD UREA NITROGEN 33 mg/dL 7-21 (BEAKER) (test ltfx=840) CREATININE (BEAKER) (test 1.78 mg/dL 0.57-1.25 knpy=322) GLUCOSE RANDOM (BEAKER) 79 mg/dL 70-105 (test zgst=971) CALCIUM (BEAKER) (test 9.4 mg/dL 8.4-10.2 zxnh=547) EGFR (BEAKER) (test 34 mL/min/1.73 sq m ESTIMATED GFR IS NOT plnx=5855) ACCURATE CREATININE CLEARANCE IN PREDICTING GLOMERULAR FILTRATION RATE. ESTIMATED GFR IS NOT APPLICABLE FOR DIALYSIS PATIENTS. [id number] 21:18:00 Test Item Value Reference Range Comments PARTIAL THROMBOPLASTIN TIME (BEAKER) (test 36.1 seconds 22.5-36.0 agkc=812) PROTHROMBIN [id number] 21:17:00 Test Item Value Reference Range Comments PROTIME (BEAKER) (test cses=000) 15.1 seconds 11.7-14.7 INR (BEAKER) (test drfw=513) 1.2 <=5.9 RECOMMENDED COUMADIN/WARFARIN INR THERAPY RANGESSTANDARD DOSE: 2.0 - 3.0 Includes: PROPHYLAXIS forvenous thrombosis, systemic embolization; TREATMENT for venous thrombosis and/or pulmonary embolus.HIGH RISK: Target INR is 2.5-3.5 for patients with mechanical heart valves.CBC W/PLT COUNT & AUTO [id number] 21:05:00 Test Item Value Reference Range Comments WHITE BLOOD CELL COUNT (BEAKER) (test lrju=542) 5.3 K/ L 3.5-10.5 RED BLOOD CELL COUNT (BEAKER) (test nqhd=580) 3.43 M/ L 3.93-5.22 HEMOGLOBIN (BEAKER) (test exag=985) 10.6 GM/DL 11.2-15.7 HEMATOCRIT (BEAKER) (test dwzv=147) 36.3 % 34.1-44.9 MEAN CORPUSCULAR VOLUME (BEAKER) (test mkrc=869) 105.8 fL 79.4-94.8 MEAN CORPUSCULAR HEMOGLOBIN (BEAKER) (test 30.9 pg 25.6-32.2 mvfy=305) MEAN CORPUSCULAR HEMOGLOBIN CONC (BEAKER) (test 29.2 GM/DL 32.2-35.5 ksxy=393) RED CELL DISTRIBUTION WIDTH (BEAKER) (test 17.9 % 11.7-14.4 qzdi=766) PLATELET COUNT (BEAKER) (test dqty=415) 294 K/CU MM 150-450 MEAN PLATELET VOLUME (BEAKER) (test rcde=353) 9.4 fL 9.4-12.3 NUCLEATED RED BLOOD CELLS (BEAKER) (test 0 /100 WBC 0-0 rido=919) NEUTROPHILS RELATIVE PERCENT (BEAKER) (test 75 % cnrj=793) LYMPHOCYTES RELATIVE PERCENT (BEAKER) (test 12 % guml=971) MONOCYTES RELATIVE PERCENT (BEAKER) (test 8 % ewra=650) EOSINOPHILS RELATIVE PERCENT (BEAKER) (test 4 % sypc=418) BASOPHILS RELATIVE PERCENT (BEAKER) (test 1 % kxna=454) NEUTROPHILS ABSOLUTE COUNT (BEAKER) (test 3.97 K/ L 1.56-6.13 xeus=415) LYMPHOCYTES ABSOLUTE COUNT (BEAKER) (test 0.64 K/ L 1.18-3.74 pngg=582) MONOCYTES ABSOLUTE COUNT (BEAKER) (test 0.42 K/ L 0.24-0.36 qfpa=109) EOSINOPHILS ABSOLUTE COUNT (BEAKER) (test 0.19 K/ L 0.04-0.36 ccha=396) BASOPHILS ABSOLUTE COUNT (BEAKER) (test 0.05 K/ L 0.01-0.08 vmhd=014) IMMATURE GRANULOCYTES-RELATIVE PERCENT (BEAKER) 0 % 0-1 (test xbur=7617) B-TYPE NATRIURETIC FACTOR (BNP)2017-08-18 15:08:00 Test Item Value Reference Range Comments B-TYPE NATRIURETIC PEPTIDE (BEAKER) (test 867 pg/mL 0-100 xkqv=060) BASIC METABOLIC [id number] 15:05:00 Test Item Value Reference Range Comments SODIUM (BEAKER) (test 140 meq/L 136-145 kmwg=641) POTASSIUM (BEAKER) (test 4.6 meq/L 3.5-5.1 hlvx=875) CHLORIDE (BEAKER) (test 98 meq/L 98-107 dwdi=138) CO2 (BEAKER) (test 32 meq/L 22-29 vnti=847) BLOOD UREA NITROGEN 30 mg/dL 7-21 (BEAKER) (test erzj=041) CREATININE (BEAKER) (test 2.58 mg/dL 0.57-1.25 utzr=963) GLUCOSE RANDOM (BEAKER) 105 mg/dL 70-105 (test ahui=741) CALCIUM (BEAKER) (test 10.3 mg/dL 8.4-10.2 wbwk=815) EGFR (BEAKER) (test 22 mL/min/1.73 sq m ESTIMATED GFR IS NOT xfgy=1567) ACCURATE CREATININE CLEARANCE IN PREDICTING GLOMERULAR FILTRATION RATE. ESTIMATED GFR IS NOT APPLICABLE FOR DIALYSIS PATIENTS. [id number] 15:02:00 Test Item Value Reference Range Comments MAGNESIUM (BEAKER) (test rsdj=428) 2.0 mg/dL 1.6-2.6 POCT-GLUCOSE [id number] 12:40:00 Test Item Value Reference Range Comments POC-GLUCOSE METER (BEAKER) 225 mg/dL 70-110 TESTED AT [address] (test mqoe=5111) [facility] [address] POCT-GLUCOSE [id number] 08:32:00 Test Item Value Reference Range Comments POC-GLUCOSE METER (BEAKER) 148 mg/dL 70-110 TESTED AT [address] (test bcqv=2775) [place] [id number] BASIC METABOLIC [id number] 05:56:00 Test Item Value Reference Range Comments SODIUM (BEAKER) (test 138 meq/L 136-145 tunh=678) POTASSIUM (BEAKER) (test 4.0 meq/L 3.5-5.1 jyaw=301) CHLORIDE (BEAKER) (test 98 meq/L 98-107 pujh=890) CO2 (BEAKER) (test 29 meq/L 22-29 ukwu=301) BLOOD UREA NITROGEN 14 mg/dL 7-21 (BEAKER) (test ezhr=026) CREATININE (BEAKER) (test 1.85 mg/dL 0.57-1.25 qrff=401) GLUCOSE RANDOM (BEAKER) 116 mg/dL 70-105 (test qtuq=285) CALCIUM (BEAKER) (test 9.9 mg/dL 8.4-10.2 kmmk=348) EGFR (BEAKER) (test 33 mL/min/1.73 sq m ESTIMATED GFR IS NOT fjic=9784) ACCURATE CREATININE CLEARANCE IN PREDICTING GLOMERULAR FILTRATION RATE. ESTIMATED GFR IS NOT APPLICABLE FOR DIALYSIS PATIENTS. POCT-GLUCOSE [id number] 21:38:00 Test Item Value Reference Range Comments POC-GLUCOSE METER (BEAKER) 162 mg/dL 70-110 TESTED AT [address] (test daks=1151) [facility] [id number] POCT-GLUCOSE [id number] 17:02:00 Test Item Value Reference Range Comments POC-GLUCOSE METER (BEAKER) 160 mg/dL 70-110 TESTED AT [address] (test lbkq=5079) [facility] [address] POCT-GLUCOSE [id number] 12:33:00 Test Item Value Reference Range Comments POC-GLUCOSE METER (BEAKER) 163 mg/dL 70-110 TESTED AT [address] (test adao=3391) [place] [id number] POCT-GLUCOSE [id number] 10:33:00 Test Item Value Reference Range Comments POC-GLUCOSE METER (BEAKER) 175 mg/dL 70-110 TESTED AT [address] (test tisk=3372) [place] [address] [id number] 04:51:00 Test Item Value Reference Range Comments MAGNESIUM (BEAKER) (test 2.0 mg/dL 1.6-2.6 Specimen slightly hemolyzed wpff=942) BASIC METABOLIC [id number] 04:51:00 Test Item Value Reference Range Comments SODIUM (BEAKER) (test 139 meq/L 136-145 aeld=905) POTASSIUM (BEAKER) (test 3.8 meq/L 3.5-5.1 Specimen slightly jfuu=233) hemolyzed CHLORIDE (BEAKER) (test 99 meq/L 98-107 gdjw=958) CO2 (BEAKER) (test 27 meq/L 22-29 clwj=502) BLOOD UREA NITROGEN 14 mg/dL 7-21 (BEAKER) (test iqid=070) CREATININE (BEAKER) (test 1.61 mg/dL 0.57-1.25 Specimen slightly kedw=167) hemolyzed GLUCOSE RANDOM (BEAKER) 139 mg/dL 70-105 (test euak=466) CALCIUM (BEAKER) (test 10.0 mg/dL 8.4-10.2 mesa=330) EGFR (BEAKER) (test 38 mL/min/1.73 sq m ESTIMATED GFR IS NOT fign=9528) ACCURATE CREATININE CLEARANCE IN PREDICTING GLOMERULAR FILTRATION RATE. ESTIMATED GFR IS NOT APPLICABLE FOR DIALYSIS PATIENTS. POCT-GLUCOSE [id number] 21:32:00 Test Item Value Reference Range Comments POC-GLUCOSE METER (BEAKER) 176 mg/dL 70-110 TESTED AT [address] (test cmbc=1019) [place] [id number] POCT-GLUCOSE [id number] 17:22:00 Test Item Value Reference Range Comments POC-GLUCOSE METER (BEAKER) 232 mg/dL 70-110 TESTED AT [address] (test pjgk=5271) [facility] [address] POCT-GLUCOSE [id number] 12:47:00 Test Item Value Reference Range Comments POC-GLUCOSE METER (BEAKER) 162 mg/dL 70-110 TESTED AT [address] (test rogt=9377) [place] [id number] POCT-GLUCOSE [id number] 08:15:00 Test Item Value Reference Range Comments POC-GLUCOSE METER (BEAKER) 149 mg/dL 70-110 TESTED AT [address] (test nvrn=6751) [place] [address] [id number] 07:05:00 Test Item Value Reference Range Comments MAGNESIUM (BEAKER) (test gohp=519) 1.9 mg/dL 1.6-2.6 BASIC METABOLIC [id number] 07:05:00 Test Item Value Reference Range Comments SODIUM (BEAKER) (test 136 meq/L 136-145 qcce=994) POTASSIUM (BEAKER) (test 3.8 meq/L 3.5-5.1 poxv=577) CHLORIDE (BEAKER) (test 98 meq/L 98-107 wsak=937) CO2 (BEAKER) (test 30 meq/L 22-29 jycb=021) BLOOD UREA NITROGEN 14 mg/dL 7-21 (BEAKER) (test grdq=487) CREATININE (BEAKER) (test 1.56 mg/dL 0.57-1.25 bdcw=447) GLUCOSE RANDOM (BEAKER) 129 mg/dL 70-105 (test kjuy=784) CALCIUM (BEAKER) (test 9.8 mg/dL 8.4-10.2 zkvl=991) EGFR (BEAKER) (test 40 mL/min/1.73 sq m ESTIMATED GFR IS NOT hsyr=9383) ACCURATE CREATININE CLEARANCE IN PREDICTING GLOMERULAR FILTRATION RATE. ESTIMATED GFR IS NOT APPLICABLE FOR DIALYSIS PATIENTS. POCT-GLUCOSE [id number] 20:56:00 Test Item Value Reference Range Comments POC-GLUCOSE METER (BEAKER) 112 mg/dL 70-110 TESTED AT [address] (test pexg=9453) [place] [id number] POCT-GLUCOSE [id number] 17:48:00 Test Item Value Reference Range Comments POC-GLUCOSE METER (BEAKER) 213 mg/dL 70-110 TESTED AT [address] (test qcqw=1423) [place] [id number] POCT-GLUCOSE [id number] 11:40:00 Test Item Value Reference Range Comments POC-GLUCOSE METER (BEAKER) 208 mg/dL 70-110 TESTED AT [address] (test ifzy=3512) [place] [id number] POCT-GLUCOSE [id number] 07:43:00 Test Item Value Reference Range Comments POC-GLUCOSE METER (BEAKER) 144 mg/dL 70-110 TESTED AT [address] (test qmlr=8821) [place] [address] [id number] 04:52:00 Test Item Value Reference Range Comments MAGNESIUM (BEAKER) (test 2.0 mg/dL 1.6-2.6 Specimen slightly hemolyzed kuuq=021) BASIC METABOLIC [id number] 04:52:00 Test Item Value Reference Range Comments SODIUM (BEAKER) (test 133 meq/L 136-145 sqcn=104) POTASSIUM (BEAKER) (test 4.7 meq/L 3.5-5.1 Specimen slightly botd=702) hemolyzed CHLORIDE (BEAKER) (test 97 meq/L 98-107 vohp=067) CO2 (BEAKER) (test 25 meq/L 22-29 izsl=556) BLOOD UREA NITROGEN 17 mg/dL 7-21 (BEAKER) (test csad=942) CREATININE (BEAKER) (test 1.63 mg/dL 0.57-1.25 Specimen slightly defl=226) hemolyzed GLUCOSE RANDOM (BEAKER) 141 mg/dL 70-105 (test cyiq=601) CALCIUM (BEAKER) (test 9.8 mg/dL 8.4-10.2 puey=257) EGFR (BEAKER) (test 38 mL/min/1.73 sq m ESTIMATED GFR IS NOT osnr=5077) ACCURATE CREATININE CLEARANCE IN PREDICTING GLOMERULAR FILTRATION RATE. ESTIMATED GFR IS NOT APPLICABLE FOR DIALYSIS PATIENTS. POCT-GLUCOSE [id number] 21:29:00 Test Item Value Reference Range Comments POC-GLUCOSE METER (BEAKER) 198 mg/dL 70-110 TESTED AT [address] (test vdoj=4411) [place] [id number] POCT-GLUCOSE [id number] 17:54:00 Test Item Value Reference Range Comments POC-GLUCOSE METER (BEAKER) 176 mg/dL 70-110 TESTED AT [facility] [address] [facility] (test zcko=9139) [facility] [address] POCT-GLUCOSE [id number] 07:05:00 Test Item Value Reference Range Comments POC-GLUCOSE METER (BEAKER) 137 mg/dL 70-110 TESTED AT [facility] [address] [facility] (test xysd=2029) [facility] [address] [id number] 06:53:00 Test Item Value Reference Range Comments MAGNESIUM (BEAKER) (test wice=707) 2.0 mg/dL 1.6-2.6 BASIC METABOLIC [id number] 05:37:00 Test Item Value Reference Range Comments SODIUM (BEAKER) (test 136 meq/L 136-145 ndby=517) POTASSIUM (BEAKER) (test 3.7 meq/L 3.5-5.1 jjnd=565) CHLORIDE (BEAKER) (test 97 meq/L 98-107 eawi=765) CO2 (BEAKER) (test 30 meq/L 22-29 htjq=252) BLOOD UREA NITROGEN 17 mg/dL 7-21 (BEAKER) (test khhv=372) CREATININE (BEAKER) (test 1.60 mg/dL 0.57-1.25 sfip=773) GLUCOSE RANDOM (BEAKER) 116 mg/dL 70-105 (test irbr=382) CALCIUM (BEAKER) (test 9.4 mg/dL 8.4-10.2 sdnk=487) EGFR (BEAKER) (test 39 mL/min/1.73 sq m ESTIMATED GFR IS NOT qghv=2228) ACCURATE CREATININE CLEARANCE IN PREDICTING GLOMERULAR FILTRATION RATE. ESTIMATED GFR IS NOT APPLICABLE FOR DIALYSIS PATIENTS. CBC W/PLT COUNT & AUTO [id number] 05:02:00 Test Item Value Reference Range Comments WHITE BLOOD CELL COUNT (BEAKER) (test pull=910) 8.7 K/ L 3.5-10.5 RED BLOOD CELL COUNT (BEAKER) (test reqw=718) 2.43 M/ L 3.93-5.22 HEMOGLOBIN (BEAKER) (test evkl=063) 7.5 GM/DL 11.2-15.7 HEMATOCRIT (BEAKER) (test mnpn=760) 24.1 % 34.1-44.9 MEAN CORPUSCULAR VOLUME (BEAKER) (test qssy=894) 99.2 fL 79.4-94.8 MEAN CORPUSCULAR HEMOGLOBIN (BEAKER) (test 30.9 pg 25.6-32.2 fdnn=062) MEAN CORPUSCULAR HEMOGLOBIN CONC (BEAKER) (test 31.1 GM/DL 32.2-35.5 nfof=355) RED CELL DISTRIBUTION WIDTH (BEAKER) (test 15.8 % 11.7-14.4 hbqp=192) PLATELET COUNT (BEAKER) (test wqno=714) 586 K/CU MM 150-450 MEAN PLATELET VOLUME (BEAKER) (test vqwt=629) 9.5 fL 9.4-12.3 NUCLEATED RED BLOOD CELLS (BEAKER) (test 0 /100 WBC 0-0 ftqd=230) NEUTROPHILS RELATIVE PERCENT (BEAKER) (test 74 % oiem=249) LYMPHOCYTES RELATIVE PERCENT (BEAKER) (test 15 % xbkl=006) MONOCYTES RELATIVE PERCENT (BEAKER) (test 8 % qqnk=833) EOSINOPHILS RELATIVE PERCENT (BEAKER) (test 2 % qwiy=873) BASOPHILS RELATIVE PERCENT (BEAKER) (test 1 % crjx=556) NEUTROPHILS ABSOLUTE COUNT (BEAKER) (test 6.41 K/ L 1.56-6.13 wpzx=277) LYMPHOCYTES ABSOLUTE COUNT (BEAKER) (test 1.32 K/ L 1.18-3.74 mmbm=156) MONOCYTES ABSOLUTE COUNT (BEAKER) (test 0.65 K/ L 0.24-0.36 uaed=823) EOSINOPHILS ABSOLUTE COUNT (BEAKER) (test 0.20 K/ L 0.04-0.36 gfrj=510) BASOPHILS ABSOLUTE COUNT (BEAKER) (test 0.08 K/ L 0.01-0.08 vkgx=206) IMMATURE GRANULOCYTES-RELATIVE PERCENT (BEAKER) 0 % 0-1 (test fhfz=0977) POCT-GLUCOSE [id number] 21:28:00 Test Item Value Reference Range Comments POC-GLUCOSE METER (BEAKER) 216 mg/dL 70-110 TESTED AT [facility] [address] (test dyxn=4914) [facility] [address] POCT-GLUCOSE [id number] 18:25:00 Test Item Value Reference Range Comments POC-GLUCOSE METER (BEAKER) 182 mg/dL 70-110 TESTED AT [facility] [address] [facility] (test kqiy=0931) [facility] [address] POCT-GLUCOSE [id number] 09:37:00 Test Item Value Reference Range Comments POC-GLUCOSE METER (BEAKER) 155 mg/dL 70-110 TESTED AT [facility] [address] [facility] (test mczp=0310) [facility] [address] CALCIUM, [id number] 07:37:00 Test Item Value Reference Range Comments CALCIUM IONIZED (BEAKER) (test xwqx=916) 1.11 mmol/L 1.12-1.27 PH, BLOOD (BEAKER) (test ppxm=5085) 7.39 [id number] 07:10:00 Test Item Value Reference Range Comments FERRITIN (BEAKER) (test fcwb=244) 445 ng/mL 5-275 IRON, TIBC, % SAT. (WITHOUT FERRITIN)2017-08-04 07:04:00 Test Item Value Reference Range Comments IRON (BEAKER) (test tslm=715) 55 ug/dL 40-160 TOTAL IRON BINDING CAPACITY (BEAKER) (test 198 ug/dL 250-450 pxed=830) IRON % SATURATION (2) (BEAKER) (test ksqm=0096) 28 % 20-55 [id number] 06:57:00 Test Item Value Reference Range Comments PHOSPHORUS (BEAKER) (test ksxu=213) 4.3 mg/dL 2.3-4.7 [id number] 06:57:00 Test Item Value Reference Range Comments MAGNESIUM (BEAKER) (test xszt=147) 2.1 mg/dL 1.6-2.6 BASIC METABOLIC [id number] 06:57:00 Test Item Value Reference Range Comments SODIUM (BEAKER) (test 138 meq/L 136-145 vgpj=353) POTASSIUM (BEAKER) (test 3.8 meq/L 3.5-5.1 qdyk=690) CHLORIDE (BEAKER) (test 99 meq/L 98-107 yrom=365) CO2 (BEAKER) (test 29 meq/L 22-29 cxgc=773) BLOOD UREA NITROGEN 18 mg/dL 7-21 (BEAKER) (test hmbs=029) CREATININE (BEAKER) (test 1.75 mg/dL 0.57-1.25 jbro=445) GLUCOSE RANDOM (BEAKER) 138 mg/dL 70-105 (test bqmm=732) CALCIUM (BEAKER) (test 9.7 mg/dL 8.4-10.2 oxhn=904) EGFR (BEAKER) (test 35 mL/min/1.73 sq m ESTIMATED GFR IS NOT xffh=9109) ACCURATE CREATININE CLEARANCE IN PREDICTING GLOMERULAR FILTRATION RATE. ESTIMATED GFR IS NOT APPLICABLE FOR DIALYSIS PATIENTS. B-TYPE NATRIURETIC FACTOR (BNP)2017-08-04 06:54:00 Test Item Value Reference Range Comments B-TYPE NATRIURETIC PEPTIDE (BEAKER) (test 778 pg/mL 0-100 cmzp=593) RETICULOCYTE [id number] 06:39:00 Test Item Value Reference Range Comments RETICULOCYTE COUNT PCT (BEAKER) (test utyf=962) 8.3 % 0.5-1.7 CBC W/PLT COUNT & AUTO [id number] 06:39:00 Test Item Value Reference Range Comments WHITE BLOOD CELL COUNT (BEAKER) (test fgym=347) 9.0 K/ L 3.5-10.5 RED BLOOD CELL COUNT (BEAKER) (test jxkg=772) 2.55 M/ L 3.93-5.22 HEMOGLOBIN (BEAKER) (test ojpm=614) 7.8 GM/DL 11.2-15.7 HEMATOCRIT (BEAKER) (test vikw=792) 25.4 % 34.1-44.9 MEAN CORPUSCULAR VOLUME (BEAKER) (test crkp=681) 99.6 fL 79.4-94.8 MEAN CORPUSCULAR HEMOGLOBIN (BEAKER) (test 30.6 pg 25.6-32.2 wvkq=562) MEAN CORPUSCULAR HEMOGLOBIN CONC (BEAKER) (test 30.7 GM/DL 32.2-35.5 oauj=051) RED CELL DISTRIBUTION WIDTH (BEAKER) (test 15.9 % 11.7-14.4 eztm=862) PLATELET COUNT (BEAKER) (test agyt=041) 591 K/CU MM 150-450 MEAN PLATELET VOLUME (BEAKER) (test arsn=593) 9.5 fL 9.4-12.3 NUCLEATED RED BLOOD CELLS (BEAKER) (test 0 /100 WBC 0-0 ugmd=415) NEUTROPHILS RELATIVE PERCENT (BEAKER) (test 77 % ecqh=596) LYMPHOCYTES RELATIVE PERCENT (BEAKER) (test 13 % nxdj=401) MONOCYTES RELATIVE PERCENT (BEAKER) (test 7 % cici=585) EOSINOPHILS RELATIVE PERCENT (BEAKER) (test 2 % ntly=345) BASOPHILS RELATIVE PERCENT (BEAKER) (test 1 % ipmv=934) NEUTROPHILS ABSOLUTE COUNT (BEAKER) (test 6.97 K/ L 1.56-6.13 wxak=530) LYMPHOCYTES ABSOLUTE COUNT (BEAKER) (test 1.13 K/ L 1.18-3.74 ruta=223) MONOCYTES ABSOLUTE COUNT (BEAKER) (test 0.65 K/ L 0.24-0.36 cnwn=847) EOSINOPHILS ABSOLUTE COUNT (BEAKER) (test 0.18 K/ L 0.04-0.36 iguo=285) BASOPHILS ABSOLUTE COUNT (BEAKER) (test 0.07 K/ L 0.01-0.08 osfj=852) IMMATURE GRANULOCYTES-RELATIVE PERCENT (BEAKER) 0 % 0-1 (test ugfc=3936) POCT-GLUCOSE [id number] 20:56:00 Test Item Value Reference Range Comments POC-GLUCOSE METER (BEAKER) 167 mg/dL 70-110 TESTED AT [address] (test gnxy=0474) [place] [address] POCT-GLUCOSE [id number] 16:36:00 Test Item Value Reference Range Comments POC-GLUCOSE METER (BEAKER) 200 mg/dL 70-110 TESTED AT [address] (test jioq=4167) [place] [address] POCT-GLUCOSE [id number] 12:59:00 Test Item Value Reference Range Comments POC-GLUCOSE METER (BEAKER) 202 mg/dL 70-110 TESTED AT [address] (test tbbq=3014) [place] [address] POCT-GLUCOSE [id number] 07:37:00 Test Item Value Reference Range Comments POC-GLUCOSE METER (BEAKER) 154 mg/dL 70-110 TESTED AT [address] (test kcuq=5898) [place] [address] CBC W/PLT COUNT & AUTO [id number] 06:49:00 Test Item Value Reference Range Comments WHITE BLOOD CELL COUNT (BEAKER) (test oduz=153) 9.8 K/ L 3.5-10.5 RED BLOOD CELL COUNT (BEAKER) (test udbn=985) 2.62 M/ L 3.93-5.22 HEMOGLOBIN (BEAKER) (test wzyp=715) 8.1 GM/DL 11.2-15.7 HEMATOCRIT (BEAKER) (test yfjz=174) 25.9 % 34.1-44.9 MEAN CORPUSCULAR VOLUME (BEAKER) (test qzbv=290) 98.9 fL 79.4-94.8 MEAN CORPUSCULAR HEMOGLOBIN (BEAKER) (test 30.9 pg 25.6-32.2 gqaa=545) MEAN CORPUSCULAR HEMOGLOBIN CONC (BEAKER) (test 31.3 GM/DL 32.2-35.5 asys=467) RED CELL DISTRIBUTION WIDTH (BEAKER) (test 15.8 % 11.7-14.4 xuom=998) PLATELET COUNT (BEAKER) (test jtbs=056) 667 K/CU MM 150-450 MEAN PLATELET VOLUME (BEAKER) (test hnrk=814) 9.4 fL 9.4-12.3 NUCLEATED RED BLOOD CELLS (BEAKER) (test 0 /100 WBC 0-0 tukj=076) NEUTROPHILS RELATIVE PERCENT (BEAKER) (test 77 % jmda=983) LYMPHOCYTES RELATIVE PERCENT (BEAKER) (test 13 % wozn=429) MONOCYTES RELATIVE PERCENT (BEAKER) (test 7 % njjp=006) EOSINOPHILS RELATIVE PERCENT (BEAKER) (test 2 % srms=600) BASOPHILS RELATIVE PERCENT (BEAKER) (test 1 % jbkk=619) NEUTROPHILS ABSOLUTE COUNT (BEAKER) (test 7.57 K/ L 1.56-6.13 dskz=885) LYMPHOCYTES ABSOLUTE COUNT (BEAKER) (test 1.23 K/ L 1.18-3.74 mpgk=490) MONOCYTES ABSOLUTE COUNT (BEAKER) (test 0.69 K/ L 0.24-0.36 itkh=650) EOSINOPHILS ABSOLUTE COUNT (BEAKER) (test 0.16 K/ L 0.04-0.36 mubo=809) BASOPHILS ABSOLUTE COUNT (BEAKER) (test 0.08 K/ L 0.01-0.08 cmsc=886) IMMATURE GRANULOCYTES-RELATIVE PERCENT (BEAKER) 1 % 0-1 (test btph=5985) CALCIUM, [id number] 06:38:00 Test Item Value Reference Range Comments CALCIUM IONIZED (BEAKER) (test mosa=130) 1.07 mmol/L 1.12-1.27 PH, BLOOD (BEAKER) (test alzc=3878) 7.42 [id number] 06:08:00 Test Item Value Reference Range Comments PHOSPHORUS (BEAKER) (test qkny=418) 4.3 mg/dL 2.3-4.7 [id number] 06:08:00 Test Item Value Reference Range Comments MAGNESIUM (BEAKER) (test fuue=469) 2.4 mg/dL 1.6-2.6 BASIC METABOLIC [id number] 06:08:00 Test Item Value Reference Range Comments SODIUM (BEAKER) (test 138 meq/L 136-145 xfko=682) POTASSIUM (BEAKER) (test 4.0 meq/L 3.5-5.1 nbep=782) CHLORIDE (BEAKER) (test 99 meq/L 98-107 eczi=087) CO2 (BEAKER) (test 29 meq/L 22-29 qfeb=692) BLOOD UREA NITROGEN 15 mg/dL 7-21 (BEAKER) (test vyex=453) CREATININE (BEAKER) (test 1.64 mg/dL 0.57-1.25 gpoq=701) GLUCOSE RANDOM (BEAKER) 135 mg/dL 70-105 (test tynh=139) CALCIUM (BEAKER) (test 9.5 mg/dL 8.4-10.2 cozn=771) EGFR (BEAKER) (test 38 mL/min/1.73 sq m ESTIMATED GFR IS NOT qmsq=3757) ACCURATE CREATININE CLEARANCE IN PREDICTING GLOMERULAR FILTRATION RATE. ESTIMATED GFR IS NOT APPLICABLE FOR DIALYSIS PATIENTS. POCT-GLUCOSE [id number] 21:13:00 Test Item Value Reference Range Comments POC-GLUCOSE METER (BEAKER) 145 mg/dL 70-110 TESTED AT [facility] [address] [place] [address] (test pbxm=2370) [facility] [address] POCT-GLUCOSE [id number] 17:08:00 Test Item Value Reference Range Comments POC-GLUCOSE METER (BEAKER) 134 mg/dL 70-110 TESTED AT [place] [id number] [facility] (test hqri=8753) [facility] [address] POCT-GLUCOSE [id number] 11:44:00 Test Item Value Reference Range Comments POC-GLUCOSE METER (BEAKER) 159 mg/dL 70-110 TESTED AT [facility] [address] [facility] (test adwo=2935) [facility] [address] POCT-GLUCOSE [id number] 08:07:00 Test Item Value Reference Range Comments POC-GLUCOSE METER (BEAKER) 152 mg/dL 70-110 TESTED AT [facility] [address] [facility] (test dqur=0255) [facility] [address] CALCIUM, [id number] 05:26:00 Test Item Value Reference Range Comments CALCIUM IONIZED (BEAKER) (test iqpc=612) 1.10 mmol/L 1.12-1.27 PH, BLOOD (BEAKER) (test yzya=8222) 7.42 [id number] 05:05:00 Test Item Value Reference Range Comments PHOSPHORUS (BEAKER) (test gdtf=432) 4.6 mg/dL 2.3-4.7 [id number] 05:05:00 Test Item Value Reference Range Comments MAGNESIUM (BEAKER) (test tjyl=458) 1.6 mg/dL 1.6-2.6 COMPREHENSIVE METABOLIC [id number] 05:05:00 Test Item Value Reference Range Comments TOTAL PROTEIN (BEAKER) 6.9 gm/dL 6.0-8.3 (test zxjx=162) ALBUMIN (BEAKER) (test 3.2 g/dL 3.5-5.0 syfg=8646) ALKALINE PHOSPHATASE 55 U/L 40-150 (BEAKER) (test jkgn=899) BILIRUBIN TOTAL (BEAKER) 0.6 mg/dL 0.2-1.2 (test ldqm=691) SODIUM (BEAKER) (test 139 meq/L 136-145 yuzy=535) POTASSIUM (BEAKER) (test 3.9 meq/L 3.5-5.1 lnwh=146) CHLORIDE (BEAKER) (test 100 meq/L 98-107 imvh=435) CO2 (BEAKER) (test 27 meq/L 22-29 fnhk=832) BLOOD UREA NITROGEN 15 mg/dL 7-21 (BEAKER) (test hags=075) CREATININE (BEAKER) (test 1.55 mg/dL 0.57-1.25 lquo=654) GLUCOSE RANDOM (BEAKER) 125 mg/dL 70-105 (test heaa=502) CALCIUM (BEAKER) (test 9.2 mg/dL 8.4-10.2 maiw=610) AST (SGOT) (BEAKER) (test 16 U/L 5-34 rkqh=738) ALT (SGPT) (BEAKER) (test 11 U/L 6-55 aoxq=710) EGFR (BEAKER) (test 40 mL/min/1.73 sq m ESTIMATED GFR IS NOT utni=9925) ACCURATE CREATININE CLEARANCE IN PREDICTING GLOMERULAR FILTRATION RATE. ESTIMATED GFR IS NOT APPLICABLE FOR DIALYSIS PATIENTS. CBC W/PLT COUNT & AUTO [id number] 04:57:00 Test Item Value Reference Range Comments WHITE BLOOD CELL COUNT (BEAKER) (test sgtf=642) 10.8 K/ L 3.5-10.5 RED BLOOD CELL COUNT (BEAKER) (test hfnm=278) 2.57 M/ L 3.93-5.22 HEMOGLOBIN (BEAKER) (test ylnx=283) 7.9 GM/DL 11.2-15.7 HEMATOCRIT (BEAKER) (test ljen=811) 25.2 % 34.1-44.9 MEAN CORPUSCULAR VOLUME (BEAKER) (test isup=438) 98.1 fL 79.4-94.8 MEAN CORPUSCULAR HEMOGLOBIN (BEAKER) (test 30.7 pg 25.6-32.2 apip=813) MEAN CORPUSCULAR HEMOGLOBIN CONC (BEAKER) (test 31.3 GM/DL 32.2-35.5 qhle=328) RED CELL DISTRIBUTION WIDTH (BEAKER) (test 15.9 % 11.7-14.4 dsut=399) PLATELET COUNT (BEAKER) (test giex=119) 623 K/CU MM 150-450 MEAN PLATELET VOLUME (BEAKER) (test moma=238) 9.4 fL 9.4-12.3 NUCLEATED RED BLOOD CELLS (BEAKER) (test 0 /100 WBC 0-0 aiah=882) NEUTROPHILS RELATIVE PERCENT (BEAKER) (test 79 % eyno=295) LYMPHOCYTES RELATIVE PERCENT (BEAKER) (test 12 % ebgm=100) MONOCYTES RELATIVE PERCENT (BEAKER) (test 7 % ixor=488) EOSINOPHILS RELATIVE PERCENT (BEAKER) (test 2 % yprw=539) BASOPHILS RELATIVE PERCENT (BEAKER) (test 1 % lvvn=780) NEUTROPHILS ABSOLUTE COUNT (BEAKER) (test 8.49 K/ L 1.56-6.13 gavp=771) LYMPHOCYTES ABSOLUTE COUNT (BEAKER) (test 1.28 K/ L 1.18-3.74 ipno=598) MONOCYTES ABSOLUTE COUNT (BEAKER) (test 0.74 K/ L 0.24-0.36 aybd=446) EOSINOPHILS ABSOLUTE COUNT (BEAKER) (test 0.18 K/ L 0.04-0.36 ldye=473) BASOPHILS ABSOLUTE COUNT (BEAKER) (test 0.05 K/ L 0.01-0.08 skwj=804) IMMATURE GRANULOCYTES-RELATIVE PERCENT (BEAKER) 1 % 0-1 (test ibyn=7630) POCT-GLUCOSE [id number] 01:29:00 Test Item Value Reference Range Comments POC-GLUCOSE METER (BEAKER) 182 mg/dL 70-110 TESTED AT [address] (test omzf=1266) [place] [address] POCT-GLUCOSE [id number] 22:32:00 Test Item Value Reference Range Comments POC-GLUCOSE METER (BEAKER) 204 mg/dL 70-110 TESTED AT [address] (test wlfg=6825) [place] [id number] POCT-GLUCOSE [id number] 18:53:00 Test Item Value Reference Range Comments POC-GLUCOSE METER (BEAKER) 154 mg/dL 70-110 TESTED AT [address] (test oadx=6283) [place] [id number] POCT-GLUCOSE [id number] 15:50:00 Test Item Value Reference Range Comments POC-GLUCOSE METER (BEAKER) 172 mg/dL 70-110 TESTED AT [address] (test umkk=4044) [place] [address] B-TYPE NATRIURETIC FACTOR (BNP)2017-08-01 15:41:00 Test Item Value Reference Range Comments B-TYPE NATRIURETIC PEPTIDE (BEAKER) (test 1253 pg/mL 0-100 fqsw=076) RAD, CHEST, 1 VIEW, NON [id number] 15:00:00Reason for exam:->SOBShould this be performed at the bedside?->YesFINAL REPORT Chest one view compared to July 28, 2017 Discussion: There is cardiac prominence. Lungs are grossly clear. No effusion or pneumothorax. There is either hiatal hernia or aortic tortuosity. IMPRESSIONS: No significant change. Signed: Tony Hsueport Verified Date/Time: 08/01/2017 15:00:05 Reading Location: [facility] B1 [id number] Consult Reading Room Electronicallysigned by: TONY HSU M.D. on 08/01/2017 03:00 PMPOCT-GLUCOSE [id number] 09:28:00 Test Item Value Reference Range Comments POC-GLUCOSE METER (BEAKER) 155 mg/dL 70-110 TESTED AT [facility] [address] [facility] (test yvuo=8994) [facility] [address] BASIC METABOLIC [id number] 08:00:00 Test Item Value Reference Range Comments SODIUM (BEAKER) (test 138 meq/L 136-145 covi=792) POTASSIUM (BEAKER) (test 3.8 meq/L 3.5-5.1 sowq=225) CHLORIDE (BEAKER) (test 100 meq/L 98-107 yvid=258) CO2 (BEAKER) (test 27 meq/L 22-29 irne=729) BLOOD UREA NITROGEN 14 mg/dL 7-21 (BEAKER) (test mnot=667) CREATININE (BEAKER) (test 1.47 mg/dL 0.57-1.25 dhbc=843) GLUCOSE RANDOM (BEAKER) 150 mg/dL 70-105 (test ekud=667) CALCIUM (BEAKER) (test 9.0 mg/dL 8.4-10.2 stot=210) EGFR (BEAKER) (test 43 mL/min/1.73 sq m ESTIMATED GFR IS NOT nzon=0867) ACCURATE CREATININE CLEARANCE IN PREDICTING GLOMERULAR FILTRATION RATE. ESTIMATED GFR IS NOT APPLICABLE FOR DIALYSIS PATIENTS. CBC W/PLT COUNT & AUTO [id number] 07:54:00 Test Item Value Reference Range Comments WHITE BLOOD CELL COUNT (BEAKER) (test hzkh=345) 12.4 K/ L 3.5-10.5 RED BLOOD CELL COUNT (BEAKER) (test ujkj=719) 2.57 M/ L 3.93-5.22 HEMOGLOBIN (BEAKER) (test tsgo=547) 7.7 GM/DL 11.2-15.7 HEMATOCRIT (BEAKER) (test armp=041) 25.0 % 34.1-44.9 MEAN CORPUSCULAR VOLUME (BEAKER) (test xjym=822) 97.3 fL 79.4-94.8 MEAN CORPUSCULAR HEMOGLOBIN (BEAKER) (test 30.0 pg 25.6-32.2 ogwg=445) MEAN CORPUSCULAR HEMOGLOBIN CONC (BEAKER) (test 30.8 GM/DL 32.2-35.5 ojvp=580) RED CELL DISTRIBUTION WIDTH (BEAKER) (test 15.8 % 11.7-14.4 kfnc=285) PLATELET COUNT (BEAKER) (test qyvn=606) 582 K/CU MM 150-450 MEAN PLATELET VOLUME (BEAKER) (test cdpu=200) 9.5 fL 9.4-12.3 NUCLEATED RED BLOOD CELLS (BEAKER) (test 0 /100 WBC 0-0 obdh=333) NEUTROPHILS RELATIVE PERCENT (BEAKER) (test 82 % ivmz=139) LYMPHOCYTES RELATIVE PERCENT (BEAKER) (test 10 % qobo=664) MONOCYTES RELATIVE PERCENT (BEAKER) (test 6 % dqmv=823) EOSINOPHILS RELATIVE PERCENT (BEAKER) (test 1 % sxfm=947) BASOPHILS RELATIVE PERCENT (BEAKER) (test 1 % qtsg=798) NEUTROPHILS ABSOLUTE COUNT (BEAKER) (test 10.08 K/ L 1.56-6.13 exoa=150) LYMPHOCYTES ABSOLUTE COUNT (BEAKER) (test 1.19 K/ L 1.18-3.74 ijsy=158) MONOCYTES ABSOLUTE COUNT (BEAKER) (test 0.74 K/ L 0.24-0.36 ddwm=360) EOSINOPHILS ABSOLUTE COUNT (BEAKER) (test 0.16 K/ L 0.04-0.36 egow=178) BASOPHILS ABSOLUTE COUNT (BEAKER) (test 0.10 K/ L 0.01-0.08 qefi=659) IMMATURE GRANULOCYTES-RELATIVE PERCENT (BEAKER) 1 % 0-1 (test zmnd=4534) POCT-GLUCOSE [id number] 21:34:00 Test Item Value Reference Range Comments POC-GLUCOSE METER (BEAKER) 153 mg/dL 70-110 TESTED AT [facility] [address] (test dkhi=7710) [facility] [address] POCT-GLUCOSE [id number] 17:34:00 Test Item Value Reference Range Comments POC-GLUCOSE METER (BEAKER) 165 mg/dL 70-110 TESTED AT [address] (test nfbj=9485) [facility] [address] POCT-GLUCOSE [id number] 14:33:00 Test Item Value Reference Range Comments POC-GLUCOSE METER (BEAKER) 208 mg/dL 70-110 TESTED AT [address] (test yhpv=3714) [facility] [address] POCT-GLUCOSE [id number] 12:54:00 Test Item Value Reference Range Comments POC-GLUCOSE METER (BEAKER) 218 mg/dL 70-110 TESTED AT [address] (test arco=2140) [facility] [address] POCT-GLUCOSE [id number] 10:34:00 Test Item Value Reference Range Comments POC-GLUCOSE METER (BEAKER) 204 mg/dL 70-110 TESTED AT [address] (test ukok=6992) [facility] [address] POCT-GLUCOSE [id number] 08:41:00 Test Item Value Reference Range Comments POC-GLUCOSE METER (BEAKER) 201 mg/dL 70-110 TESTED AT [address] (test twcm=2594) [facility] [address] [id number] 05:54:00 Test Item Value Reference Range Comments MAGNESIUM (BEAKER) (test onwp=712) 1.8 mg/dL 1.6-2.6 BASIC METABOLIC [id number] 05:54:00 Test Item Value Reference Range Comments SODIUM (BEAKER) (test 138 meq/L 136-145 mzov=942) POTASSIUM (BEAKER) (test 3.6 meq/L 3.5-5.1 rzym=839) CHLORIDE (BEAKER) (test 100 meq/L 98-107 plzy=253) CO2 (BEAKER) (test 25 meq/L 22-29 rfke=483) BLOOD UREA NITROGEN 14 mg/dL 7-21 (BEAKER) (test nkcj=703) CREATININE (BEAKER) (test 1.42 mg/dL 0.57-1.25 rfjk=025) GLUCOSE RANDOM (BEAKER) 145 mg/dL 70-105 (test bzvd=408) CALCIUM (BEAKER) (test 9.4 mg/dL 8.4-10.2 rrba=822) EGFR (BEAKER) (test 44 mL/min/1.73 sq m ESTIMATED GFR IS NOT rfkz=1481) ACCURATE CREATININE CLEARANCE IN PREDICTING GLOMERULAR FILTRATION RATE. ESTIMATED GFR IS NOT APPLICABLE FOR DIALYSIS PATIENTS. CBC (HEMOGRAM ONLY)2017-07-31 05:42:00 Test Item Value Reference Range Comments WHITE BLOOD CELL COUNT (BEAKER) (test fnqe=366) 13.3 K/ L 3.5-10.5 RED BLOOD CELL COUNT (BEAKER) (test uinv=196) 2.65 M/ L 3.93-5.22 HEMOGLOBIN (BEAKER) (test ankw=422) 7.9 GM/DL 11.2-15.7 HEMATOCRIT (BEAKER) (test pdeo=686) 25.9 % 34.1-44.9 MEAN CORPUSCULAR VOLUME (BEAKER) (test firu=662) 97.7 fL 79.4-94.8 MEAN CORPUSCULAR HEMOGLOBIN (BEAKER) (test 29.8 pg 25.6-32.2 xjxx=773) MEAN CORPUSCULAR HEMOGLOBIN CONC (BEAKER) (test 30.5 GM/DL 32.2-35.5 xois=562) RED CELL DISTRIBUTION WIDTH (BEAKER) (test 15.3 % 11.7-14.4 telt=860) PLATELET COUNT (BEAKER) (test zsdv=710) 580 K/CU MM 150-450 MEAN PLATELET VOLUME (BEAKER) (test pxqz=516) 9.7 fL 9.4-12.3 NUCLEATED RED BLOOD CELLS (BEAKER) (test 0 /100 WBC 0-0 nzes=163) POCT-GLUCOSE [id number] 21:21:00 Test Item Value Reference Range Comments POC-GLUCOSE METER (BEAKER) 206 mg/dL 70-110 TESTED AT [address] (test rpxs=8980) [facility] [address] POCT-GLUCOSE [id number] 17:50:00 Test Item Value Reference Range Comments POC-GLUCOSE METER (BEAKER) 160 mg/dL 70-110 TESTED AT [address] (test wxbq=7184) [facility] [address] POCT-GLUCOSE [id number] 12:12:00 Test Item Value Reference Range Comments POC-GLUCOSE METER (BEAKER) 214 mg/dL 70-110 TESTED AT [address] (test yvtq=7030) [place] [address] POCT-GLUCOSE [id number] 07:59:00 Test Item Value Reference Range Comments POC-GLUCOSE METER (BEAKER) 146 mg/dL 70-110 TESTED AT [facility] [address] [facility] (test ezyc=8932) [facility] [address] CALCIUM, [id number] 07:23:00 Test Item Value Reference Range Comments CALCIUM IONIZED (BEAKER) (test eflk=528) 1.11 mmol/L 1.12-1.27 PH, BLOOD (BEAKER) (test ggzz=9334) 7.42 [id number] 07:07:00 Test Item Value Reference Range Comments PHOSPHORUS (BEAKER) (test uwqg=572) 3.5 mg/dL 2.3-4.7 [id number] 07:07:00 Test Item Value Reference Range Comments MAGNESIUM (BEAKER) (test wmrt=329) 1.8 mg/dL 1.6-2.6 COMPREHENSIVE METABOLIC [id number] 07:07:00 Test Item Value Reference Range Comments TOTAL PROTEIN (BEAKER) 6.7 gm/dL 6.0-8.3 (test vrrs=631) ALBUMIN (BEAKER) (test 3.1 g/dL 3.5-5.0 zjvu=6029) ALKALINE PHOSPHATASE 53 U/L 40-150 (BEAKER) (test ymgg=128) BILIRUBIN TOTAL (BEAKER) 0.6 mg/dL 0.2-1.2 (test clln=706) SODIUM (BEAKER) (test 139 meq/L 136-145 ukdc=165) POTASSIUM (BEAKER) (test 4.0 meq/L 3.5-5.1 hrwt=399) CHLORIDE (BEAKER) (test 103 meq/L 98-107 iqqy=675) CO2 (BEAKER) (test 27 meq/L 22-29 jrms=144) BLOOD UREA NITROGEN 16 mg/dL 7-21 (BEAKER) (test guef=069) CREATININE (BEAKER) (test 1.34 mg/dL 0.57-1.25 nbrc=915) GLUCOSE RANDOM (BEAKER) 116 mg/dL 70-105 (test muxm=692) CALCIUM (BEAKER) (test 9.2 mg/dL 8.4-10.2 zzah=679) AST (SGOT) (BEAKER) (test 15 U/L 5-34 tdsy=781) ALT (SGPT) (BEAKER) (test 11 U/L 6-55 qdbg=922) EGFR (BEAKER) (test 47 mL/min/1.73 sq m ESTIMATED GFR IS NOT heqc=2144) ACCURATE CREATININE CLEARANCE IN PREDICTING GLOMERULAR FILTRATION RATE. ESTIMATED GFR IS NOT APPLICABLE FOR DIALYSIS PATIENTS. CBC W/PLT COUNT & AUTO [id number] 06:52:00 Test Item Value Reference Range Comments WHITE BLOOD CELL COUNT (BEAKER) (test zwuj=780) 12.8 K/ L 3.5-10.5 RED BLOOD CELL COUNT (BEAKER) (test lozu=427) 2.43 M/ L 3.93-5.22 HEMOGLOBIN (BEAKER) (test szmi=585) 7.2 GM/DL 11.2-15.7 HEMATOCRIT (BEAKER) (test uogc=549) 23.8 % 34.1-44.9 MEAN CORPUSCULAR VOLUME (BEAKER) (test dpvw=210) 97.9 fL 79.4-94.8 MEAN CORPUSCULAR HEMOGLOBIN (BEAKER) (test 29.6 pg 25.6-32.2 cpvu=584) MEAN CORPUSCULAR HEMOGLOBIN CONC (BEAKER) (test 30.3 GM/DL 32.2-35.5 hubd=821) RED CELL DISTRIBUTION WIDTH (BEAKER) (test 15.0 % 11.7-14.4 zjuc=706) PLATELET COUNT (BEAKER) (test inft=253) 456 K/CU MM 150-450 MEAN PLATELET VOLUME (BEAKER) (test krzd=339) 10.3 fL 9.4-12.3 NUCLEATED RED BLOOD CELLS (BEAKER) (test 0 /100 WBC 0-0 vnxn=140) NEUTROPHILS RELATIVE PERCENT (BEAKER) (test 82 % eezq=762) LYMPHOCYTES RELATIVE PERCENT (BEAKER) (test 9 % glie=498) MONOCYTES RELATIVE PERCENT (BEAKER) (test 6 % nidm=552) EOSINOPHILS RELATIVE PERCENT (BEAKER) (test 2 % ipkz=711) BASOPHILS RELATIVE PERCENT (BEAKER) (test 0 % ejgv=501) NEUTROPHILS ABSOLUTE COUNT (BEAKER) (test 10.52 K/ L 1.56-6.13 xstm=001) LYMPHOCYTES ABSOLUTE COUNT (BEAKER) (test 1.19 K/ L 1.18-3.74 muor=072) MONOCYTES ABSOLUTE COUNT (BEAKER) (test 0.73 K/ L 0.24-0.36 mcnz=961) EOSINOPHILS ABSOLUTE COUNT (BEAKER) (test 0.22 K/ L 0.04-0.36 qpjc=027) BASOPHILS ABSOLUTE COUNT (BEAKER) (test 0.04 K/ L 0.01-0.08 suim=559) IMMATURE GRANULOCYTES-RELATIVE PERCENT (BEAKER) 1 % 0-1 (test unfz=5335) POCT-GLUCOSE [id number] 21:47:00 Test Item Value Reference Range Comments POC-GLUCOSE METER (BEAKER) 106 mg/dL 70-110 TESTED AT [address] (test ldwm=6987) [place] [address] POCT-GLUCOSE [id number] 18:50:00 Test Item Value Reference Range Comments POC-GLUCOSE METER (BEAKER) 175 mg/dL 70-110 TESTED AT [address] (test jklw=8150) [place] [address] [id number] 15:18:00 Test Item Value Reference Range Comments POTASSIUM (BEAKER) (test lzoe=981) 3.7 meq/L 3.5-5.1 [id number] 15:18:00 Test Item Value Reference Range Comments MAGNESIUM (BEAKER) (test aptb=021) 2.2 mg/dL 1.6-2.6 POCT-GLUCOSE [id number] 11:48:00 Test Item Value Reference Range Comments POC-GLUCOSE METER (BEAKER) 131 mg/dL 70-110 TESTED AT [address] (test oate=6428) [place] [address] BLOOD GAS, [id number] 11:46:00 Test Item Value Reference Range Comments PH ARTERIAL (BEAKER) (test tved=107) 7.43 7.35-7.45 PCO2 ARTERIAL (BEAKER) (test vexy=169) 46 mmHg 35-45 PO2 ARTERIAL (BEAKER) (test azch=742) 83 mmHg 80-90 O2 SATURATION ARTERIAL (BEAKER) (test fdmy=178) 96.5 % 96.0-97.0 HCO3 ARTERIAL (BEAKER) (test gnfz=905) 30 mmol/L 21-29 BASE EXCESS ARTERIAL (BEAKER) (test xjug=895) 4.8 mmol/L -2.0-3.0 PATIENT TEMPERATURE (BEAKER) (test rgez=9123) 36.9 C FIO2 (BEAKER) (test okzc=3237) 36.0 % POCT-GLUCOSE [id number] 08:29:00 Test Item Value Reference Range Comments POC-GLUCOSE METER (BEAKER) 129 mg/dL 70-110 TESTED AT [facility] [address] [facility] (test zxtj=7759) [place] [address] CALCIUM, [id number] 04:18:00 Test Item Value Reference Range Comments CALCIUM IONIZED (BEAKER) (test kval=967) 1.11 mmol/L 1.12-1.27 PH, BLOOD (BEAKER) (test efhr=7419) 7.40 B-TYPE NATRIURETIC FACTOR (BNP)2017-07-29 04:06:00 Test Item Value Reference Range Comments B-TYPE NATRIURETIC PEPTIDE (BEAKER) (test 982 pg/mL 0-100 hcmz=980) [id number] 03:59:00 Test Item Value Reference Range Comments PHOSPHORUS (BEAKER) (test cldx=198) 3.6 mg/dL 2.3-4.7 [id number] 03:59:00 Test Item Value Reference Range Comments MAGNESIUM (BEAKER) (test abjo=470) 1.9 mg/dL 1.6-2.6 BASIC METABOLIC [id number] 03:59:00 Test Item Value Reference Range Comments SODIUM (BEAKER) (test 141 meq/L 136-145 tsnr=356) POTASSIUM (BEAKER) (test 3.1 meq/L 3.5-5.1 tnmc=871) CHLORIDE (BEAKER) (test 103 meq/L 98-107 oviw=349) CO2 (BEAKER) (test 26 meq/L 22-29 ebin=745) BLOOD UREA NITROGEN 17 mg/dL 7-21 (BEAKER) (test qrkd=334) CREATININE (BEAKER) (test 1.43 mg/dL 0.57-1.25 ifkw=726) GLUCOSE RANDOM (BEAKER) 110 mg/dL 70-105 (test bhna=571) CALCIUM (BEAKER) (test 9.0 mg/dL 8.4-10.2 lweo=563) EGFR (BEAKER) (test 44 mL/min/1.73 sq m ESTIMATED GFR IS NOT nyvv=4171) ACCURATE CREATININE CLEARANCE IN PREDICTING GLOMERULAR FILTRATION RATE. ESTIMATED GFR IS NOT APPLICABLE FOR DIALYSIS PATIENTS. CBC (HEMOGRAM ONLY)2017-07-29 03:51:00 Test Item Value Reference Range Comments WHITE BLOOD CELL COUNT (BEAKER) (test ihsn=681) 12.2 K/ L 3.5-10.5 RED BLOOD CELL COUNT (BEAKER) (test oasl=378) 2.48 M/ L 3.93-5.22 HEMOGLOBIN (BEAKER) (test oxxo=444) 7.4 GM/DL 11.2-15.7 HEMATOCRIT (BEAKER) (test khql=345) 24.2 % 34.1-44.9 MEAN CORPUSCULAR VOLUME (BEAKER) (test fpen=403) 97.6 fL 79.4-94.8 MEAN CORPUSCULAR HEMOGLOBIN (BEAKER) (test 29.8 pg 25.6-32.2 hdwv=237) MEAN CORPUSCULAR HEMOGLOBIN CONC (BEAKER) (test 30.6 GM/DL 32.2-35.5 pivs=192) RED CELL DISTRIBUTION WIDTH (BEAKER) (test 15.1 % 11.7-14.4 zjke=475) PLATELET COUNT (BEAKER) (test ngqu=593) 410 K/CU MM 150-450 MEAN PLATELET VOLUME (BEAKER) (test jmkz=618) 10.2 fL 9.4-12.3 NUCLEATED RED BLOOD CELLS (BEAKER) (test 0 /100 WBC 0-0 nmpb=982) POCT-GLUCOSE [id number] 23:55:00 Test Item Value Reference Range Comments POC-GLUCOSE METER (BEAKER) 164 mg/dL 70-110 TESTED AT [facility] [address] [facility] (test rdly=2901) [facility] [address] HERPES VIRUS ANTIBODY, [id number] 11:02:00 Test Item Value Reference Range Comments HERPES VIRUS IGM (BEAKER) (test wjtd=3815) Negative HSV IgM 1=NEGATIVEHSV IgM 2=NEGATIVETOXOPLASMA GONDII ANTIBODY, [id number] 11 :02:00 Test Item Value Reference Range Comments TOXOPLASMA IGM ANTIBODY (BEAKER) (test htzu=989) Negative RAD, CHEST, 1 VIEW, NON [id number] 10:48:00Reason for exam:->acute respiratory insufficiencyShould this be [...] MDReport Verified Date/Time: 07/28/2017 10:48:24 Reading Location: [facility] Radiology Reading Room [id number] 05:13:00 Test Item Value Reference Range Comments PHOSPHORUS (BEAKER) (test wgsm=605) 3.3 mg/dL 2.3-4.7 [id number] 05:13:00 Test Item Value Reference Range Comments MAGNESIUM (BEAKER) (test flfz=570) 1.9 mg/dL 1.6-2.6 HEPATIC FUNCTION [id number] 05:13:00 Test Item Value Reference Range Comments TOTAL PROTEIN (BEAKER) (test wfew=009) 7.5 gm/dL 6.0-8.3 ALBUMIN (BEAKER) (test kocu=1106) 3.6 g/dL 3.5-5.0 BILIRUBIN TOTAL (BEAKER) (test uyzd=423) 0.9 mg/dL 0.2-1.2 BILIRUBIN DIRECT (BEAKER) (test avmc=123) 0.4 mg/dL 0.1-0.5 ALKALINE PHOSPHATASE (BEAKER) (test prws=546) 66 U/L 40-150 AST (SGOT) (BEAKER) (test mrna=530) 21 U/L 5-34 ALT (SGPT) (BEAKER) (test gmdd=395) 17 U/L 6-55 COMPREHENSIVE METABOLIC [id number] 05:13:00 Test Item Value Reference Range Comments TOTAL PROTEIN (BEAKER) 7.5 gm/dL 6.0-8.3 (test nuzd=056) ALBUMIN (BEAKER) (test 3.6 g/dL 3.5-5.0 ajma=7312) ALKALINE PHOSPHATASE 66 U/L 40-150 (BEAKER) (test kqra=812) BILIRUBIN TOTAL (BEAKER) 0.9 mg/dL 0.2-1.2 (test lhca=638) SODIUM (BEAKER) (test 143 meq/L 136-145 ougr=680) POTASSIUM (BEAKER) (test 3.5 meq/L 3.5-5.1 dada=802) CHLORIDE (BEAKER) (test 105 meq/L 98-107 qhfg=536) CO2 (BEAKER) (test 25 meq/L 22-29 ujhz=053) BLOOD UREA NITROGEN 18 mg/dL 7-21 (BEAKER) (test lsse=576) CREATININE (BEAKER) (test 1.43 mg/dL 0.57-1.25 xwem=293) GLUCOSE RANDOM (BEAKER) 130 mg/dL 70-105 (test gpzw=646) CALCIUM (BEAKER) (test 9.6 mg/dL 8.4-10.2 wmgd=267) AST (SGOT) (BEAKER) (test 21 U/L 5-34 okyl=870) ALT (SGPT) (BEAKER) (test 17 U/L 6-55 tvek=637) EGFR (BEAKER) (test 44 mL/min/1.73 sq m ESTIMATED GFR IS NOT klof=2463) ACCURATE CREATININE CLEARANCE IN PREDICTING GLOMERULAR FILTRATION RATE. ESTIMATED GFR IS NOT APPLICABLE FOR DIALYSIS PATIENTS. LACTATE DEHYDROGENASE (LDH)2017-07-28 05:13:00 Test Item Value Reference Range Comments LACTATE DEHYDROGENASE (BEAKER) (test cfhv=648) 639 U/L 125-220 CBC W/PLT COUNT & AUTO [id number] 04:57:00 Test Item Value Reference Range Comments WHITE BLOOD CELL COUNT (BEAKER) (test eeji=144) 13.6 K/ L 3.5-10.5 RED BLOOD CELL COUNT (BEAKER) (test wpuq=052) 2.86 M/ L 3.93-5.22 HEMOGLOBIN (BEAKER) (test xaqj=852) 8.5 GM/DL 11.2-15.7 HEMATOCRIT (BEAKER) (test lwec=488) 28.9 % 34.1-44.9 MEAN CORPUSCULAR VOLUME (BEAKER) (test qxlz=901) 101.0 fL 79.4-94.8 MEAN CORPUSCULAR HEMOGLOBIN (BEAKER) (test 29.7 pg 25.6-32.2 vxfs=358) MEAN CORPUSCULAR HEMOGLOBIN CONC (BEAKER) (test 29.4 GM/DL 32.2-35.5 sccu=184) RED CELL DISTRIBUTION WIDTH (BEAKER) (test 15.2 % 11.7-14.4 nnuf=530) PLATELET COUNT (BEAKER) (test ewiu=212) 375 K/CU MM 150-450 MEAN PLATELET VOLUME (BEAKER) (test kkcy=937) 10.7 fL 9.4-12.3 NUCLEATED RED BLOOD CELLS (BEAKER) (test 0 /100 WBC 0-0 ojlg=302) NEUTROPHILS RELATIVE PERCENT (BEAKER) (test 82 % pjoh=579) LYMPHOCYTES RELATIVE PERCENT (BEAKER) (test 9 % mtzf=345) MONOCYTES RELATIVE PERCENT (BEAKER) (test 6 % qmrt=900) EOSINOPHILS RELATIVE PERCENT (BEAKER) (test 2 % oqsv=314) BASOPHILS RELATIVE PERCENT (BEAKER) (test 1 % gojo=227) NEUTROPHILS ABSOLUTE COUNT (BEAKER) (test 11.11 K/ L 1.56-6.13 yrwf=920) LYMPHOCYTES ABSOLUTE COUNT (BEAKER) (test 1.17 K/ L 1.18-3.74 noxz=928) MONOCYTES ABSOLUTE COUNT (BEAKER) (test 0.83 K/ L 0.24-0.36 navh=433) EOSINOPHILS ABSOLUTE COUNT (BEAKER) (test 0.25 K/ L 0.04-0.36 vpdq=772) BASOPHILS ABSOLUTE COUNT (BEAKER) (test 0.07 K/ L 0.01-0.08 pess=005) IMMATURE GRANULOCYTES-RELATIVE PERCENT (BEAKER) 1 % 0-1 (test bykb=2623) OCCULT BLOOD, [id number] 01:02:00 Test Item Value Reference Range Comments FECAL OCCULT BLOOD (BEAKER) (test xvmr=102) Negative Negative POCT-GLUCOSE [id number] 00:46:00 Test Item Value Reference Range Comments POC-GLUCOSE METER (BEAKER) 149 mg/dL 70-110 TESTED AT [address] (test qgom=7793) [place] [id number] C. DIFFICILE GDH [id number] 19:51:00 Test Item Value Reference Range Comments CDT TOXIN (test Negative Negative vwtr=[id number]) CDT GDH ANTIGEN (test Negative Negative No indication of Clostridium rqhp=[id number]) difficile infection and no colonization. Discontinue enteric isolation and therapy. Testing performed by [employer] Rapid Cassette Assay. For GDH, published sensitivity of the assay is 98.7% compared to cytotoxicity testing. For Toxin AB, published sensitivity is 87.8% and specificity 99.4% compared to cytotoxicity testing.Verification of kit performance was done by the [facility] Microbiology Lab prior to clinical use.POCT-GLUCOSE [id number] 18:11:00 Test Item Value Reference Range Comments POC-GLUCOSE METER (BEAKER) 201 mg/dL 70-110 TESTED AT [address] (test bytp=1778) [place] [id number] BLOOD GAS, [id number] 17:03:00 Test Item Value Reference Range Comments PH ARTERIAL (BEAKER) (test zkay=115) 7.41 7.35-7.45 PCO2 ARTERIAL (BEAKER) (test yogr=266) 45 mmHg 35-45 PO2 ARTERIAL (BEAKER) (test kmlu=532) 94 mmHg 80-90 O2 SATURATION ARTERIAL (BEAKER) (test ylqn=648) 97.3 % 96.0-97.0 HCO3 ARTERIAL (BEAKER) (test vjjq=804) 28 mmol/L 21-29 BASE EXCESS ARTERIAL (BEAKER) (test ueut=469) 2.3 mmol/L -2.0-3.0 PATIENT TEMPERATURE (BEAKER) (test fimz=1659) 36.6 C FIO2 (BEAKER) (test cafd=8244) 40.0 % POCT-GLUCOSE [id number] 12:44:00 Test Item Value Reference Range Comments POC-GLUCOSE METER (BEAKER) 117 mg/dL 70-110 TESTED AT [address] (test kwjz=4252) [place] [address] B-TYPE NATRIURETIC FACTOR (BNP)2017-07-27 11:13:00 Test Item Value Reference Range Comments B-TYPE NATRIURETIC PEPTIDE (BEAKER) (test 1198 pg/mL 0-100 lssf=713) LACTIC ACID, VENOUS, WHOLE [id number] 11:12:00 Test Item Value Reference Range Comments LACTATE BLOOD VENOUS (2) (BEAKER) (test 0.7 mmol/L 0.5-2.2 qbxy=1937) Effective 08/06/2015: Units/Reference Range ChangeNew: 0.5-2.2 mmol/L Previous: 5 -20 mg/dLOXYGEN SATURATION, [id number] 10:28:00 Test Item Value Reference Range Comments O2 SATURATION (MEASURED) (BEAKER) (test lfhu=9490) 59.6 % RAD, CHEST, 1 VIEW, NON [id number] 08:23:00Reason for exam:->acute respiratory insufficiencyShould this be [...] Verified Date/Time: 07/27/2017 08:23 :08 Reading Location: [facility] Radiology Reading Room POCT-GLUCOSE [id number] 07:53:00 Test Item Value Reference Range Comments POC-GLUCOSE METER (BEAKER) 124 mg/dL 70-110 TESTED AT [address] (test hfmu=1921) [facility] [address] BASIC METABOLIC [id number] 06:33:00 Test Item Value Reference Range Comments SODIUM (BEAKER) (test 144 meq/L 136-145 orfi=482) POTASSIUM (BEAKER) (test 3.8 meq/L 3.5-5.1 graj=938) CHLORIDE (BEAKER) (test 109 meq/L 98-107 kfuj=475) CO2 (BEAKER) (test 24 meq/L 22-29 ztpt=774) BLOOD UREA NITROGEN 20 mg/dL 7-21 (BEAKER) (test ltpa=413) CREATININE (BEAKER) (test 1.40 mg/dL 0.57-1.25 pcmi=515) GLUCOSE RANDOM (BEAKER) 111 mg/dL 70-105 (test fyoz=198) CALCIUM (BEAKER) (test 8.8 mg/dL 8.4-10.2 kqlz=105) EGFR (BEAKER) (test 45 mL/min/1.73 sq m ESTIMATED GFR IS NOT tjhl=5696) ACCURATE CREATININE CLEARANCE IN PREDICTING GLOMERULAR FILTRATION RATE. ESTIMATED GFR IS NOT APPLICABLE FOR DIALYSIS PATIENTS. [id number] 06:24:00 Test Item Value Reference Range Comments PHOSPHORUS (BEAKER) (test nrxd=216) 3.3 mg/dL 2.3-4.7 BASIC METABOLIC [id number] 06:24:00 Test Item Value Reference Range Comments SODIUM (BEAKER) (test 145 meq/L 136-145 zbks=323) POTASSIUM (BEAKER) (test 3.8 meq/L 3.5-5.1 qras=063) CHLORIDE (BEAKER) (test 110 meq/L 98-107 qlon=705) CO2 (BEAKER) (test 24 meq/L 22-29 zepl=006) BLOOD UREA NITROGEN 21 mg/dL 7-21 (BEAKER) (test jfdt=605) CREATININE (BEAKER) (test 1.39 mg/dL 0.57-1.25 hokr=170) GLUCOSE RANDOM (BEAKER) 112 mg/dL 70-105 (test gnkm=914) CALCIUM (BEAKER) (test 8.9 mg/dL 8.4-10.2 fueg=592) EGFR (BEAKER) (test 45 mL/min/1.73 sq m ESTIMATED GFR IS NOT yfbe=2803) ACCURATE CREATININE CLEARANCE IN PREDICTING GLOMERULAR FILTRATION RATE. ESTIMATED GFR IS NOT APPLICABLE FOR DIALYSIS PATIENTS. [id number] 03:27:00 Test Item Value Reference Range Comments PROCALCITONIN (BEAKER) (test ktck=1426) 0.28 ng/mL <0.05 SEPSIS RISK (ng/mL)Low: 0.05-0.50Intermediate: 0.51-2.00High: & gt;=2.01LACTATE DEHYDROGENASE (LDH)2017-07-27 03:07:00 Test Item Value Reference Range Comments LACTATE DEHYDROGENASE (BEAKER) (test ksyf=762) 615 U/L 125-220 HEPATIC FUNCTION [id number] 03:07:00 Test Item Value Reference Range Comments TOTAL PROTEIN (BEAKER) (test zzlv=443) 6.8 gm/dL 6.0-8.3 ALBUMIN (BEAKER) (test tdcq=2023) 3.2 g/dL 3.5-5.0 BILIRUBIN TOTAL (BEAKER) (test kkgw=183) 0.9 mg/dL 0.2-1.2 BILIRUBIN DIRECT (BEAKER) (test heyc=027) 0.5 mg/dL 0.1-0.5 ALKALINE PHOSPHATASE (BEAKER) (test feiv=118) 58 U/L 40-150 AST (SGOT) (BEAKER) (test shkx=880) 21 U/L 5-34 ALT (SGPT) (BEAKER) (test pgaj=488) 15 U/L 6-55 CALCIUM, [id number] 02:57:00 Test Item Value Reference Range Comments CALCIUM IONIZED (BEAKER) (test rxei=640) 1.14 mmol/L 1.12-1.27 PH, BLOOD (BEAKER) (test muse=2837) 7.42 CBC W/PLT COUNT & AUTO [id number] 02:56:00 Test Item Value Reference Range Comments WHITE BLOOD CELL COUNT (BEAKER) (test krdm=257) 12.4 K/ L 3.5-10.5 RED BLOOD CELL COUNT (BEAKER) (test zurl=821) 2.50 M/ L 3.93-5.22 HEMOGLOBIN (BEAKER) (test hpyt=555) 7.4 GM/DL 11.2-15.7 HEMATOCRIT (BEAKER) (test kgkk=837) 24.7 % 34.1-44.9 MEAN CORPUSCULAR VOLUME (BEAKER) (test ggss=317) 98.8 fL 79.4-94.8 MEAN CORPUSCULAR HEMOGLOBIN (BEAKER) (test 29.6 pg 25.6-32.2 pctu=592) MEAN CORPUSCULAR HEMOGLOBIN CONC (BEAKER) (test 30.0 GM/DL 32.2-35.5 jiyk=345) RED CELL DISTRIBUTION WIDTH (BEAKER) (test 15.1 % 11.7-14.4 enex=390) PLATELET COUNT (BEAKER) (test voje=790) 233 K/CU MM 150-450 MEAN PLATELET VOLUME (BEAKER) (test qhuz=079) 10.5 fL 9.4-12.3 NUCLEATED RED BLOOD CELLS (BEAKER) (test 0 /100 WBC 0-0 bvye=511) NEUTROPHILS RELATIVE PERCENT (BEAKER) (test 80 % czxs=738) LYMPHOCYTES RELATIVE PERCENT (BEAKER) (test 9 % dzbz=202) MONOCYTES RELATIVE PERCENT (BEAKER) (test 7 % phfb=874) EOSINOPHILS RELATIVE PERCENT (BEAKER) (test 2 % ypyg=699) BASOPHILS RELATIVE PERCENT (BEAKER) (test 0 % vkhd=987) NEUTROPHILS ABSOLUTE COUNT (BEAKER) (test 9.94 K/ L 1.56-6.13 fhqq=873) LYMPHOCYTES ABSOLUTE COUNT (BEAKER) (test 1.15 K/ L 1.18-3.74 rkaq=387) MONOCYTES ABSOLUTE COUNT (BEAKER) (test 0.90 K/ L 0.24-0.36 sdxz=102) EOSINOPHILS ABSOLUTE COUNT (BEAKER) (test 0.24 K/ L 0.04-0.36 eixz=992) BASOPHILS ABSOLUTE COUNT (BEAKER) (test 0.05 K/ L 0.01-0.08 ccnt=143) IMMATURE GRANULOCYTES-RELATIVE PERCENT (BEAKER) 1 % 0-1 (test luwn=1198) [id number] 01:29:00 Test Item Value Reference Range Comments PHOSPHORUS (BEAKER) (test luxf=144) 3.5 mg/dL 2.3-4.7 BASIC METABOLIC [id number] 01:29:00 Test Item Value Reference Range Comments SODIUM (BEAKER) (test 145 meq/L 136-145 tpdc=605) POTASSIUM (BEAKER) (test 3.4 meq/L 3.5-5.1 ayue=538) CHLORIDE (BEAKER) (test 107 meq/L 98-107 ndls=805) CO2 (BEAKER) (test 26 meq/L 22-29 lncq=323) BLOOD UREA NITROGEN 21 mg/dL 7-21 (BEAKER) (test wjtv=373) CREATININE (BEAKER) (test 1.47 mg/dL 0.57-1.25 irzk=822) GLUCOSE RANDOM (BEAKER) 138 mg/dL 70-105 (test jslg=172) CALCIUM (BEAKER) (test 9.1 mg/dL 8.4-10.2 dpsw=556) EGFR (BEAKER) (test 43 mL/min/1.73 sq m ESTIMATED GFR IS NOT snyv=5490) ACCURATE CREATININE CLEARANCE IN PREDICTING GLOMERULAR FILTRATION RATE. ESTIMATED GFR IS NOT APPLICABLE FOR DIALYSIS PATIENTS. POCT-GLUCOSE [id number] 22:08:00 Test Item Value Reference Range Comments POC-GLUCOSE METER (BEAKER) 166 mg/dL 70-110 TESTED AT [address] (test mtaf=6112) [facility] [address] [id number] 21:22:00 Test Item Value Reference Range Comments MAGNESIUM (BEAKER) (test ggdj=151) 2.2 mg/dL 1.6-2.6 [id number] 19:23:00 Test Item Value Reference Range Comments PHOSPHORUS (BEAKER) (test ttkn=963) 2.9 mg/dL 2.3-4.7 BASIC METABOLIC [id number] 19:23:00 Test Item Value Reference Range Comments SODIUM (BEAKER) (test 145 meq/L 136-145 agxg=842) POTASSIUM (BEAKER) (test 3.6 meq/L 3.5-5.1 htis=365) CHLORIDE (BEAKER) (test 109 meq/L 98-107 kzsv=934) CO2 (BEAKER) (test 24 meq/L 22-29 uxcv=461) BLOOD UREA NITROGEN 22 mg/dL 7-21 (BEAKER) (test qnya=279) CREATININE (BEAKER) (test 1.48 mg/dL 0.57-1.25 bdse=765) GLUCOSE RANDOM (BEAKER) 150 mg/dL 70-105 (test okbq=990) CALCIUM (BEAKER) (test 9.0 mg/dL 8.4-10.2 rkdh=702) EGFR (BEAKER) (test 42 mL/min/1.73 sq m ESTIMATED GFR IS NOT fqru=2557) ACCURATE CREATININE CLEARANCE IN PREDICTING GLOMERULAR FILTRATION RATE. ESTIMATED GFR IS NOT APPLICABLE FOR DIALYSIS PATIENTS. POCT-GLUCOSE [id number] 18:13:00 Test Item Value Reference Range Comments POC-GLUCOSE METER (BEAKER) 188 mg/dL 70-110 TESTED AT [place] [id number] [facility] (test rbmc=2200) [facility] [address] [id number] 13:12:00 Test Item Value Reference Range Comments PHOSPHORUS (BEAKER) (test zqyg=023) 2.7 mg/dL 2.3-4.7 BASIC METABOLIC [id number] 13:12:00 Test Item Value Reference Range Comments SODIUM (BEAKER) (test 144 meq/L 136-145 ggtj=647) POTASSIUM (BEAKER) (test 3.5 meq/L 3.5-5.1 qkir=466) CHLORIDE (BEAKER) (test 108 meq/L 98-107 fkae=660) CO2 (BEAKER) (test 26 meq/L 22-29 oxcq=069) BLOOD UREA NITROGEN 23 mg/dL 7-21 (BEAKER) (test buvh=268) CREATININE (BEAKER) (test 1.45 mg/dL 0.57-1.25 cqlh=689) GLUCOSE RANDOM (BEAKER) 183 mg/dL 70-105 (test iudv=706) CALCIUM (BEAKER) (test 8.5 mg/dL 8.4-10.2 jamk=645) EGFR (BEAKER) (test 43 mL/min/1.73 sq m ESTIMATED GFR IS NOT fzeq=2799) ACCURATE CREATININE CLEARANCE IN PREDICTING GLOMERULAR FILTRATION RATE. ESTIMATED GFR IS NOT APPLICABLE FOR DIALYSIS PATIENTS. POCT-GLUCOSE [id number] 12:07:00 Test Item Value Reference Range Comments POC-GLUCOSE METER (BEAKER) 203 mg/dL 70-110 TESTED AT [facility] [address] [facility] (test ewiz=6451) [facility] [address] [id number] 09:50:00 Test Item Value Reference Range Comments MAGNESIUM (BEAKER) (test mbup=126) 2.6 mg/dL 1.6-2.6 RAD, CHEST, 1 VIEW, NON [id number] 08:06:00Reason for exam:->acute respiratory insufficiencyShould this be [...] Location: [facility] POCT-GLUCOSE [id number] 07:58:00 Test Item Value Reference Range Comments POC-GLUCOSE METER (BEAKER) 176 mg/dL 70-110 TESTED AT [facility] [address] [facility] (test edvx=1507) [facility] [address] OXYGEN SATURATION, [id number] 05:23:00 Test Item Value Reference Range Comments O2 SATURATION (MEASURED) (BEAKER) (test gzmd=5657) 64.5 % calibrationBLOOD GAS, [id number] 04:43:00 Test Item Value Reference Range Comments PH ARTERIAL (BEAKER) (test wwcz=017) 7.44 7.35-7.45 PCO2 ARTERIAL (BEAKER) (test uxfh=384) 44 mmHg 35-45 PO2 ARTERIAL (BEAKER) (test uqfr=780) 127 mmHg 80-90 O2 SATURATION ARTERIAL (BEAKER) (test pgqj=269) 98.6 % 96.0-97.0 HCO3 ARTERIAL (BEAKER) (test hxen=718) 29 mmol/L 21-29 BASE EXCESS ARTERIAL (BEAKER) (test bmjh=628) 4.6 mmol/L -2.0-3.0 PATIENT TEMPERATURE (BEAKER) (test qoos=9901) 37.3 C FIO2 (BEAKER) (test xtmq=7360) 100.0 % [id number] 04:31:00 Test Item Value Reference Range Comments PHOSPHORUS (BEAKER) (test hprc=159) 3.4 mg/dL 2.3-4.7 [id number] 04:31:00 Test Item Value Reference Range Comments MAGNESIUM (BEAKER) (test phbc=427) 2.2 mg/dL 1.6-2.6 BASIC METABOLIC [id number] 04:31:00 Test Item Value Reference Range Comments SODIUM (BEAKER) (test 146 meq/L 136-145 gmmc=216) POTASSIUM (BEAKER) (test 3.7 meq/L 3.5-5.1 bnkm=719) CHLORIDE (BEAKER) (test 108 meq/L 98-107 ctdt=652) CO2 (BEAKER) (test 28 meq/L 22-29 cjcb=777) BLOOD UREA NITROGEN 23 mg/dL 7-21 (BEAKER) (test igkx=997) CREATININE (BEAKER) (test 1.51 mg/dL 0.57-1.25 xszt=217) GLUCOSE RANDOM (BEAKER) 151 mg/dL 70-105 (test jaul=687) CALCIUM (BEAKER) (test 9.4 mg/dL 8.4-10.2 cmqw=988) EGFR (BEAKER) (test 41 mL/min/1.73 sq m ESTIMATED GFR IS NOT mkyq=2800) ACCURATE CREATININE CLEARANCE IN PREDICTING GLOMERULAR FILTRATION RATE. ESTIMATED GFR IS NOT APPLICABLE FOR DIALYSIS PATIENTS. HEPATIC FUNCTION [id number] 04:31:00 Test Item Value Reference Range Comments TOTAL PROTEIN (BEAKER) (test bsvn=377) 6.6 gm/dL 6.0-8.3 ALBUMIN (BEAKER) (test rart=2103) 3.2 g/dL 3.5-5.0 BILIRUBIN TOTAL (BEAKER) (test yhxk=844) 1.0 mg/dL 0.2-1.2 BILIRUBIN DIRECT (BEAKER) (test kcaq=446) 0.5 mg/dL 0.1-0.5 ALKALINE PHOSPHATASE (BEAKER) (test aaiz=719) 60 U/L 40-150 AST (SGOT) (BEAKER) (test tthr=984) 25 U/L 5-34 ALT (SGPT) (BEAKER) (test aktd=754) 18 U/L 6-55 COMPREHENSIVE METABOLIC [id number] 04:31:00 Test Item Value Reference Range Comments TOTAL PROTEIN (BEAKER) 6.6 gm/dL 6.0-8.3 (test kcfg=226) ALBUMIN (BEAKER) (test 3.2 g/dL 3.5-5.0 gshz=9540) ALKALINE PHOSPHATASE 60 U/L 40-150 (BEAKER) (test zide=794) BILIRUBIN TOTAL (BEAKER) 1.0 mg/dL 0.2-1.2 (test ozoi=230) SODIUM (BEAKER) (test 146 meq/L 136-145 heiw=361) POTASSIUM (BEAKER) (test 3.7 meq/L 3.5-5.1 uwap=430) CHLORIDE (BEAKER) (test 108 meq/L 98-107 lchk=343) CO2 (BEAKER) (test 28 meq/L 22-29 rzam=592) BLOOD UREA NITROGEN 23 mg/dL 7-21 (BEAKER) (test bigi=658) CREATININE (BEAKER) (test 1.51 mg/dL 0.57-1.25 wiaq=267) GLUCOSE RANDOM (BEAKER) 151 mg/dL 70-105 (test oimi=874) CALCIUM (BEAKER) (test 9.4 mg/dL 8.4-10.2 ihgk=412) AST (SGOT) (BEAKER) (test 25 U/L 5-34 awzo=962) ALT (SGPT) (BEAKER) (test 18 U/L 6-55 extz=968) EGFR (BEAKER) (test 41 mL/min/1.73 sq m ESTIMATED GFR IS NOT bqjw=2603) ACCURATE CREATININE CLEARANCE IN PREDICTING GLOMERULAR FILTRATION RATE. ESTIMATED GFR IS NOT APPLICABLE FOR DIALYSIS PATIENTS. LACTATE DEHYDROGENASE (LDH)2017-07-26 04:31:00 Test Item Value Reference Range Comments LACTATE DEHYDROGENASE (BEAKER) (test qmfz=057) 661 U/L 125-220 CALCIUM, [id number] 04:23:00 Test Item Value Reference Range Comments CALCIUM IONIZED (BEAKER) (test aadk=763) 1.15 mmol/L 1.12-1.27 PH, BLOOD (BEAKER) (test dsxa=8470) 7.47 CBC W/PLT COUNT & AUTO [id number] 04:20:00 Test Item Value Reference Range Comments WHITE BLOOD CELL COUNT (BEAKER) (test zckj=463) 13.0 K/ L 3.5-10.5 RED BLOOD CELL COUNT (BEAKER) (test nksl=822) 2.56 M/ L 3.93-5.22 HEMOGLOBIN (BEAKER) (test enlf=338) 7.6 GM/DL 11.2-15.7 HEMATOCRIT (BEAKER) (test gori=549) 25.4 % 34.1-44.9 MEAN CORPUSCULAR VOLUME (BEAKER) (test adox=486) 99.2 fL 79.4-94.8 MEAN CORPUSCULAR HEMOGLOBIN (BEAKER) (test 29.7 pg 25.6-32.2 asaj=694) MEAN CORPUSCULAR HEMOGLOBIN CONC (BEAKER) (test 29.9 GM/DL 32.2-35.5 uqii=513) RED CELL DISTRIBUTION WIDTH (BEAKER) (test 15.0 % 11.7-14.4 tfnc=745) PLATELET COUNT (BEAKER) (test acgr=863) 161 K/CU MM 150-450 MEAN PLATELET VOLUME (BEAKER) (test rfhl=786) 11.0 fL 9.4-12.3 NUCLEATED RED BLOOD CELLS (BEAKER) (test 0 /100 WBC 0-0 olnf=552) NEUTROPHILS RELATIVE PERCENT (BEAKER) (test 79 % bxvd=363) LYMPHOCYTES RELATIVE PERCENT (BEAKER) (test 10 % lowa=935) MONOCYTES RELATIVE PERCENT (BEAKER) (test 7 % sral=283) EOSINOPHILS RELATIVE PERCENT (BEAKER) (test 2 % yojm=138) BASOPHILS RELATIVE PERCENT (BEAKER) (test 1 % rotg=509) NEUTROPHILS ABSOLUTE COUNT (BEAKER) (test 10.33 K/ L 1.56-6.13 mnzn=793) LYMPHOCYTES ABSOLUTE COUNT (BEAKER) (test 1.35 K/ L 1.18-3.74 sfyp=225) MONOCYTES ABSOLUTE COUNT (BEAKER) (test 0.96 K/ L 0.24-0.36 gnnd=801) EOSINOPHILS ABSOLUTE COUNT (BEAKER) (test 0.19 K/ L 0.04-0.36 jizg=580) BASOPHILS ABSOLUTE COUNT (BEAKER) (test 0.07 K/ L 0.01-0.08 dzos=775) IMMATURE GRANULOCYTES-RELATIVE PERCENT (BEAKER) 1 % 0-1 (test rilr=2829) [id number] 21:19:00 Test Item Value Reference Range Comments PHOSPHORUS (BEAKER) (test kuqq=374) 4.4 mg/dL 2.3-4.7 [id number] 21:19:00 Test Item Value Reference Range Comments MAGNESIUM (BEAKER) (test wshg=647) 2.1 mg/dL 1.6-2.6 BASIC METABOLIC [id number] 21:19:00 Test Item Value Reference Range Comments SODIUM (BEAKER) (test 146 meq/L 136-145 cyyu=053) POTASSIUM (BEAKER) (test 3.9 meq/L 3.5-5.1 nilo=766) CHLORIDE (BEAKER) (test 108 meq/L 98-107 vjpq=234) CO2 (BEAKER) (test 27 meq/L 22-29 zgna=620) BLOOD UREA NITROGEN 24 mg/dL 7-21 (BEAKER) (test wejs=145) CREATININE (BEAKER) (test 1.64 mg/dL 0.57-1.25 jijp=567) GLUCOSE RANDOM (BEAKER) 120 mg/dL 70-105 (test mrja=214) CALCIUM (BEAKER) (test 9.5 mg/dL 8.4-10.2 admt=227) EGFR (BEAKER) (test 38 mL/min/1.73 sq m ESTIMATED GFR IS NOT llsd=3758) ACCURATE CREATININE CLEARANCE IN PREDICTING GLOMERULAR FILTRATION RATE. ESTIMATED GFR IS NOT APPLICABLE FOR DIALYSIS PATIENTS. POCT-GLUCOSE [id number] 18:36:00 Test Item Value Reference Range Comments POC-GLUCOSE METER (BEAKER) 129 mg/dL 70-110 TESTED AT [address] (test mwkq=8528) [place] [address] POCT-GLUCOSE [id number] 16:19:00 Test Item Value Reference Range Comments POC-GLUCOSE METER (BEAKER) 132 mg/dL 70-110 TESTED AT [address] (test ocyj=9404) [place] [address] [id number] 13:57:00 Test Item Value Reference Range Comments PHOSPHORUS (BEAKER) (test mpuh=595) 4.2 mg/dL 2.3-4.7 BASIC METABOLIC [id number] 13:57:00 Test Item Value Reference Range Comments SODIUM (BEAKER) (test 147 meq/L 136-145 dalm=186) POTASSIUM (BEAKER) (test 3.7 meq/L 3.5-5.1 hudr=112) CHLORIDE (BEAKER) (test 110 meq/L 98-107 stcy=961) CO2 (BEAKER) (test 25 meq/L 22-29 dfpu=322) BLOOD UREA NITROGEN 23 mg/dL 7-21 (BEAKER) (test rtaa=959) CREATININE (BEAKER) (test 1.58 mg/dL 0.57-1.25 qjrc=708) GLUCOSE RANDOM (BEAKER) 129 mg/dL 70-105 (test vgqf=677) CALCIUM (BEAKER) (test 9.2 mg/dL 8.4-10.2 rfme=023) EGFR (BEAKER) (test 39 mL/min/1.73 sq m ESTIMATED GFR IS NOT jimz=0700) ACCURATE CREATININE CLEARANCE IN PREDICTING GLOMERULAR FILTRATION RATE. ESTIMATED GFR IS NOT APPLICABLE FOR DIALYSIS PATIENTS. BLOOD GAS, [id number] 13:48:00 Test Item Value Reference Range Comments PH ARTERIAL (BEAKER) (test ngyx=102) 7.42 7.35-7.45 PCO2 ARTERIAL (BEAKER) (test mpcc=686) 47 mmHg 35-45 PO2 ARTERIAL (BEAKER) (test xsyo=061) 202 mmHg 80-90 O2 SATURATION ARTERIAL (BEAKER) (test rqes=370) 99.4 % 96.0-97.0 HCO3 ARTERIAL (BEAKER) (test kazg=065) 29 mmol/L 21-29 BASE EXCESS ARTERIAL (BEAKER) (test ghjo=506) 4.4 mmol/L -2.0-3.0 PATIENT TEMPERATURE (BEAKER) (test vofm=5094) 37.6 C FIO2 (BEAKER) (test kxwz=1570) 100.0 % POCT-GLUCOSE [id number] 13:31:00 Test Item Value Reference Range Comments POC-GLUCOSE METER (BEAKER) 128 mg/dL 70-110 TESTED AT [address] (test bdca=2881) [place] [address] POCT-GLUCOSE [id number] 11:02:00 Test Item Value Reference Range Comments POC-GLUCOSE METER (BEAKER) 137 mg/dL 70-110 TESTED AT [address] (test bzsa=8024) [place] [id number] POCT-GLUCOSE [id number] 11:02:00 Test Item Value Reference Range Comments POC-GLUCOSE METER (BEAKER) 141 mg/dL 70-110 TESTED AT [address] (test ysxt=1901) [place] [id number] POCT-GLUCOSE [id number] 11:02:00 Test Item Value Reference Range Comments POC-GLUCOSE METER (BEAKER) 104 mg/dL 70-110 TESTED AT [address] (test jojh=2598) [place] [id number] BLOOD [id number] 11:00:00 Test Item Value Reference Range Comments CULTURE (BEAKER) (test aaxp=6727) No growth in 5 days BLOOD [id number] 11:00:00 Test Item Value Reference Range Comments CULTURE (BEAKER) (test lqmj=5762) No growth in 5 days CBC W/PLT COUNT & AUTO [id number] 08:54:00 Test Item Value Reference Range Comments WHITE BLOOD CELL COUNT (BEAKER) (test onyo=174) 13.8 K/ L 3.5-10.5 RED BLOOD CELL COUNT (BEAKER) (test tzqy=669) 2.54 M/ L 3.93-5.22 HEMOGLOBIN (BEAKER) (test fgjl=952) 7.7 GM/DL 11.2-15.7 HEMATOCRIT (BEAKER) (test jvlw=208) 25.2 % 34.1-44.9 MEAN CORPUSCULAR VOLUME (BEAKER) (test tabx=979) 99.2 fL 79.4-94.8 MEAN CORPUSCULAR HEMOGLOBIN (BEAKER) (test 30.3 pg 25.6-32.2 nhgb=292) MEAN CORPUSCULAR HEMOGLOBIN CONC (BEAKER) (test 30.6 GM/DL 32.2-35.5 juhp=466) RED CELL DISTRIBUTION WIDTH (BEAKER) (test 15.2 % 11.7-14.4 xqfo=994) PLATELET COUNT (BEAKER) (test hcni=704) 127 K/CU MM 150-450 MEAN PLATELET VOLUME (BEAKER) (test ykxz=457) 10.6 fL 9.4-12.3 NUCLEATED RED BLOOD CELLS (BEAKER) (test 0 /100 WBC 0-0 lbsw=468) NEUTROPHILS RELATIVE PERCENT (BEAKER) (test 81 % xhna=998) LYMPHOCYTES RELATIVE PERCENT (BEAKER) (test 8 % uptj=348) MONOCYTES RELATIVE PERCENT (BEAKER) (test 9 % dlzt=260) EOSINOPHILS RELATIVE PERCENT (BEAKER) (test 1 % gvbl=681) BASOPHILS RELATIVE PERCENT (BEAKER) (test 0 % fcgv=188) NEUTROPHILS ABSOLUTE COUNT (BEAKER) (test 11.11 K/ L 1.56-6.13 uecq=656) LYMPHOCYTES ABSOLUTE COUNT (BEAKER) (test 1.14 K/ L 1.18-3.74 fkhq=434) MONOCYTES ABSOLUTE COUNT (BEAKER) (test 1.20 K/ L 0.24-0.36 gzrn=190) EOSINOPHILS ABSOLUTE COUNT (BEAKER) (test 0.15 K/ L 0.04-0.36 rqln=990) BASOPHILS ABSOLUTE COUNT (BEAKER) (test 0.04 K/ L 0.01-0.08 ylhk=345) IMMATURE GRANULOCYTES-RELATIVE PERCENT (BEAKER) 1 % 0-1 (test mequ=1414) BLOOD GAS, [id number] 08:40:00 Test Item Value Reference Range Comments PH ARTERIAL (BEAKER) (test ueaj=065) 7.43 7.35-7.45 PCO2 ARTERIAL (BEAKER) (test mnvv=454) 35 mmHg 35-45 PO2 ARTERIAL (BEAKER) (test qeqz=642) 82 mmHg 80-90 O2 SATURATION ARTERIAL (BEAKER) (test wfyp=786) 95.7 % 96.0-97.0 HCO3 ARTERIAL (BEAKER) (test cupf=314) 22 mmol/L 21-29 BASE EXCESS ARTERIAL (BEAKER) (test qwll=725) -1.3 mmol/L -2.0-3.0 PATIENT TEMPERATURE (BEAKER) (test qtfa=3638) 38.3 C FIO2 (BEAKER) (test iecw=5876) 40.0 % [id number] 06:59:00 Test Item Value Reference Range Comments PHOSPHORUS (BEAKER) (test nqow=389) 3.4 mg/dL 2.3-4.7 [id number] 06:59:00 Test Item Value Reference Range Comments MAGNESIUM (BEAKER) (test yfgk=784) 2.0 mg/dL 1.6-2.6 BASIC METABOLIC [id number] 06:59:00 Test Item Value Reference Range Comments SODIUM (BEAKER) (test 147 meq/L 136-145 qtbu=694) POTASSIUM (BEAKER) (test 3.7 meq/L 3.5-5.1 jklt=556) CHLORIDE (BEAKER) (test 111 meq/L 98-107 hvqq=383) CO2 (BEAKER) (test 23 meq/L 22-29 xcjz=335) BLOOD UREA NITROGEN 24 mg/dL 7-21 (BEAKER) (test wmqg=203) CREATININE (BEAKER) (test 1.57 mg/dL 0.57-1.25 dkte=148) GLUCOSE RANDOM (BEAKER) 121 mg/dL 70-105 (test szbm=068) CALCIUM (BEAKER) (test 9.0 mg/dL 8.4-10.2 romv=010) EGFR (BEAKER) (test 39 mL/min/1.73 sq m ESTIMATED GFR IS NOT hjht=5449) ACCURATE CREATININE CLEARANCE IN PREDICTING GLOMERULAR FILTRATION RATE. ESTIMATED GFR IS NOT APPLICABLE FOR DIALYSIS PATIENTS. POCT-GLUCOSE [id number] 06:27:00 Test Item Value Reference Range Comments POC-GLUCOSE METER (BEAKER) 95 mg/dL 70-110 TESTED AT [facility] [address] [facility] (test uhyt=7196) [facility] [address] POCT-GLUCOSE [id number] 06:04:00 Test Item Value Reference Range Comments POC-GLUCOSE METER (BEAKER) 128 mg/dL 70-110 TESTED AT [address] (test nmkr=8133) [place] [address] [id number] 05:36:00 Test Item Value Reference Range Comments PHOSPHORUS (BEAKER) (test mcoy=581) 3.4 mg/dL 2.3-4.7 BASIC METABOLIC [id number] 05:36:00 Test Item Value Reference Range Comments SODIUM (BEAKER) (test 146 meq/L 136-145 dgzb=223) POTASSIUM (BEAKER) (test 3.6 meq/L 3.5-5.1 gumq=840) CHLORIDE (BEAKER) (test 110 meq/L 98-107 ijsz=600) CO2 (BEAKER) (test 25 meq/L 22-29 gpfa=761) BLOOD UREA NITROGEN 25 mg/dL 7-21 (BEAKER) (test wdrq=667) CREATININE (BEAKER) (test 1.58 mg/dL 0.57-1.25 rdng=186) GLUCOSE RANDOM (BEAKER) 114 mg/dL 70-105 (test zjhv=797) CALCIUM (BEAKER) (test 8.9 mg/dL 8.4-10.2 xupl=452) EGFR (BEAKER) (test 39 mL/min/1.73 sq m ESTIMATED GFR IS NOT uxhc=5601) ACCURATE CREATININE CLEARANCE IN PREDICTING GLOMERULAR FILTRATION RATE. ESTIMATED GFR IS NOT APPLICABLE FOR DIALYSIS PATIENTS. HEPATIC FUNCTION [id number] 05:36:00 Test Item Value Reference Range Comments TOTAL PROTEIN (BEAKER) (test qdle=461) 6.3 gm/dL 6.0-8.3 ALBUMIN (BEAKER) (test wvbn=6731) 3.1 g/dL 3.5-5.0 BILIRUBIN TOTAL (BEAKER) (test jvck=142) 1.1 mg/dL 0.2-1.2 BILIRUBIN DIRECT (BEAKER) (test cfgn=620) 0.7 mg/dL 0.1-0.5 ALKALINE PHOSPHATASE (BEAKER) (test lkmb=129) 54 U/L 40-150 AST (SGOT) (BEAKER) (test przd=589) 23 U/L 5-34 ALT (SGPT) (BEAKER) (test jrwl=590) 17 U/L 6-55 LACTATE DEHYDROGENASE (LDH)2017-07-25 05:36:00 Test Item Value Reference Range Comments LACTATE DEHYDROGENASE (BEAKER) (test axaa=458) 695 U/L 125-220 POCT-GLUCOSE [id number] 05:24:00 Test Item Value Reference Range Comments POC-GLUCOSE METER (BEAKER) 102 mg/dL 70-110 TESTED AT [facility] [address] [facility] (test ckvr=5130) [facility] [address] RAD, CHEST, 1 VIEW, NON [id number] 04:43:00Reason for exam:-> impellaShould this be performed at the bedside?->YesFINAL REPORT Chest one view. Clinical history: impella Comparison: Chest radiograph 07/24/17 Technique: A single frontal view of the chest was obtained. Findings: Cardiomediastinal contours are unchanged. Endotracheal and feeding tubes as well as a right IJ [place]agdeep catheter are unchanged in position. There are patchy bibasilar opacities which may represent atelectasis and/or pneumonia. There is mild elevation of the left hemidiaphragm. There is no definite pleural effusionor pneumothorax. Signed: Alexia Ramirez Verified Date/Time: 07/25/2017 04:43:27 ReadingLocation: [facility] B1 C013T Transitional Reading Room [id number] 00:51:00 Test Item Value Reference Range Comments PHOSPHORUS (BEAKER) (test xdkh=701) 3.4 mg/dL 2.3-4.7 BASIC METABOLIC [id number] 00:51:00 Test Item Value Reference Range Comments SODIUM (BEAKER) (test 146 meq/L 136-145 dspl=972) POTASSIUM (BEAKER) (test 4.0 meq/L 3.5-5.1 sssb=744) CHLORIDE (BEAKER) (test 110 meq/L 98-107 dpfz=179) CO2 (BEAKER) (test 26 meq/L 22-29 dqxg=320) BLOOD UREA NITROGEN 26 mg/dL 7-21 (BEAKER) (test erdx=679) CREATININE (BEAKER) (test 1.53 mg/dL 0.57-1.25 zaky=841) GLUCOSE RANDOM (BEAKER) 105 mg/dL 70-105 (test iijv=718) CALCIUM (BEAKER) (test 8.8 mg/dL 8.4-10.2 fcfh=676) EGFR (BEAKER) (test 41 mL/min/1.73 sq m ESTIMATED GFR IS NOT kknf=6335) ACCURATE CREATININE CLEARANCE IN PREDICTING GLOMERULAR FILTRATION RATE. ESTIMATED GFR IS NOT APPLICABLE FOR DIALYSIS PATIENTS. POCT-GLUCOSE [id number] 00:32:00 Test Item Value Reference Range Comments POC-GLUCOSE METER (BEAKER) 119 mg/dL 70-110 TESTED AT [address] (test kvif=3783) [place] [address] POCT-GLUCOSE [id number] 00:27:00 Test Item Value Reference Range Comments POC-GLUCOSE METER (BEAKER) 114 mg/dL 70-110 TESTED AT [address] (test ujho=6143) [place] [address] POCT-GLUCOSE [id number] 23:58:00 Test Item Value Reference Range Comments POC-GLUCOSE METER (BEAKER) 117 mg/dL 70-110 TESTED AT [address] (test nfpt=8590) [place] [address] [id number] 21:24:00 Test Item Value Reference Range Comments MAGNESIUM (BEAKER) (test youi=092) 2.0 mg/dL 1.6-2.6 POCT-GLUCOSE [id number] 20:24:00 Test Item Value Reference Range Comments POC-GLUCOSE METER (BEAKER) 130 mg/dL 70-110 TESTED AT [facility] [address] (test yujb=8348) [facility] [address] [id number] 19:20:00 Test Item Value Reference Range Comments POTASSIUM (BEAKER) (test lisz=885) 3.6 meq/L 3.5-5.1 [id number] 19:20:00 Test Item Value Reference Range Comments GLUCOSE RANDOM (BEAKER) (test oojl=366) 168 mg/dL 70-105 [id number] 18:01:00 Test Item Value Reference Range Comments PHOSPHORUS (BEAKER) (test ppfp=703) 3.7 mg/dL 2.3-4.7 BASIC METABOLIC [id number] 18:01:00 Test Item Value Reference Range Comments SODIUM (BEAKER) (test 145 meq/L 136-145 ggjg=693) POTASSIUM (BEAKER) (test 3.9 meq/L 3.5-5.1 apon=835) CHLORIDE (BEAKER) (test 109 meq/L 98-107 nspw=813) CO2 (BEAKER) (test 27 meq/L 22-29 gejk=061) BLOOD UREA NITROGEN 26 mg/dL 7-21 (BEAKER) (test onvc=766) CREATININE (BEAKER) (test 1.47 mg/dL 0.57-1.25 yvxf=106) GLUCOSE RANDOM (BEAKER) 210 mg/dL 70-105 (test qzxj=189) CALCIUM (BEAKER) (test 8.5 mg/dL 8.4-10.2 orqp=587) EGFR (BEAKER) (test 43 mL/min/1.73 sq m ESTIMATED GFR IS NOT juot=8282) ACCURATE CREATININE CLEARANCE IN PREDICTING GLOMERULAR FILTRATION RATE. ESTIMATED GFR IS NOT APPLICABLE FOR DIALYSIS PATIENTS. GLUCOSE-STAT [id number] 17:14:00 Test Item Value Reference Range Comments GLUCOSE RANDOM (BEAKER) (test tbvt=003) 208 mg/dL 70-110 BLOOD GAS, [id number] 17:13:00 Test Item Value Reference Range Comments PH ARTERIAL (BEAKER) (test jakp=327) 7.44 7.35-7.45 PCO2 ARTERIAL (BEAKER) (test imoy=763) 43 mmHg 35-45 PO2 ARTERIAL (BEAKER) (test ytci=844) 58 mmHg 80-90 O2 SATURATION ARTERIAL (BEAKER) (test hdgj=793) 90.8 % 96.0-97.0 HCO3 ARTERIAL (BEAKER) (test ltfk=242) 28 mmol/L 21-29 BASE EXCESS ARTERIAL (BEAKER) (test bznu=181) 3.9 mmol/L -2.0-3.0 PATIENT TEMPERATURE (BEAKER) (test uqnx=5760) 37.0 C FIO2 (BEAKER) (test smjr=6303) 100.0 % RAD, CHEST, 1 VIEW, NON [id number] 14:00:00Reason for exam:->post intubationShould this be performed at the bedside?->YesFINAL REPORT AP chest. HISTORY: Endotracheal tube COMPARISON: 07/24/2017 IMPRESSION:Endotracheal tube projects deep in the trachea, approximately 1-2 cm above the level of the toro. Cardiomegaly similar to previous. Worsening aeration at the left lung base. Mild pulmonary vascular congestion. No pneumothorax. Signed: Mitchel Jarquin MDReport Verified Date/Time: 07/24/2017 14:00:17 Reading Location: [address] Body Reading Room [id number] 13:40:00 Test Item Value Reference Range Comments PHOSPHORUS (BEAKER) (test oqhl=370) 4.3 mg/dL 2.3-4.7 [id number] 13:40:00 Test Item Value Reference Range Comments MAGNESIUM (BEAKER) (test oxov=035) 2.0 mg/dL 1.6-2.6 BASIC METABOLIC [id number] 13:40:00 Test Item Value Reference Range Comments SODIUM (BEAKER) (test 145 meq/L 136-145 wulq=067) POTASSIUM (BEAKER) (test 3.9 meq/L 3.5-5.1 siln=720) CHLORIDE (BEAKER) (test 108 meq/L 98-107 gcaa=209) CO2 (BEAKER) (test 24 meq/L 22-29 mhjk=559) BLOOD UREA NITROGEN 28 mg/dL 7-21 (BEAKER) (test arqi=887) CREATININE (BEAKER) (test 1.43 mg/dL 0.57-1.25 qeji=380) GLUCOSE RANDOM (BEAKER) 206 mg/dL 70-105 (test umbd=828) CALCIUM (BEAKER) (test 8.5 mg/dL 8.4-10.2 nanx=792) EGFR (BEAKER) (test 44 mL/min/1.73 sq m ESTIMATED GFR IS NOT zaem=4727) ACCURATE CREATININE CLEARANCE IN PREDICTING GLOMERULAR FILTRATION RATE. ESTIMATED GFR IS NOT APPLICABLE FOR DIALYSIS PATIENTS. LACTIC ACID, ARTERIAL, WHOLE [id number] 13:36:00 Test Item Value Reference Range Comments LACTATE BLOOD ARTERIAL (2) (BEAKER) (test 0.7 mmol/L 0.5-2.2 fyai=2192) Effective 08/06/2015: Units/Reference Range ChangeNew: 0.5-2.2 mmol/L Previous: 5 -20 mg/dLCBC W/PLT COUNT & AUTO [id number] 13:24:00 Test Item Value Reference Range Comments WHITE BLOOD CELL COUNT (BEAKER) (test ojcp=176) 10.5 K/ L 3.5-10.5 RED BLOOD CELL COUNT (BEAKER) (test yjqy=639) 2.70 M/ L 3.93-5.22 HEMOGLOBIN (BEAKER) (test erbg=603) 8.1 GM/DL 11.2-15.7 HEMATOCRIT (BEAKER) (test thbp=610) 27.0 % 34.1-44.9 MEAN CORPUSCULAR VOLUME (BEAKER) (test iupf=166) 100.0 fL 79.4-94.8 MEAN CORPUSCULAR HEMOGLOBIN (BEAKER) (test 30.0 pg 25.6-32.2 wdpf=280) MEAN CORPUSCULAR HEMOGLOBIN CONC (BEAKER) (test 30.0 GM/DL 32.2-35.5 ktfk=045) RED CELL DISTRIBUTION WIDTH (BEAKER) (test 14.9 % 11.7-14.4 xkmd=345) PLATELET COUNT (BEAKER) (test fafd=002) 117 K/CU MM 150-450 MEAN PLATELET VOLUME (BEAKER) (test gqvg=766) 10.9 fL 9.4-12.3 NUCLEATED RED BLOOD CELLS (BEAKER) (test 0 /100 WBC 0-0 spac=695) NEUTROPHILS RELATIVE PERCENT (BEAKER) (test 78 % lasg=147) LYMPHOCYTES RELATIVE PERCENT (BEAKER) (test 10 % heje=863) MONOCYTES RELATIVE PERCENT (BEAKER) (test 10 % uzyl=471) EOSINOPHILS RELATIVE PERCENT (BEAKER) (test 1 % arhs=799) BASOPHILS RELATIVE PERCENT (BEAKER) (test 0 % llae=363) NEUTROPHILS ABSOLUTE COUNT (BEAKER) (test 8.20 K/ L 1.56-6.13 fnel=526) LYMPHOCYTES ABSOLUTE COUNT (BEAKER) (test 1.00 K/ L 1.18-3.74 oydg=421) MONOCYTES ABSOLUTE COUNT (BEAKER) (test 1.06 K/ L 0.24-0.36 jqzb=595) EOSINOPHILS ABSOLUTE COUNT (BEAKER) (test 0.09 K/ L 0.04-0.36 zfxk=523) BASOPHILS ABSOLUTE COUNT (BEAKER) (test 0.04 K/ L 0.01-0.08 duwf=536) IMMATURE GRANULOCYTES-RELATIVE PERCENT (BEAKER) 1 % 0-1 (test pkdu=1930) OXYGEN SATURATION, [id number] 13:08:00 Test Item Value Reference Range Comments O2 SATURATION (MEASURED) (BEAKER) (test onkv=0198) 65.1 % PA catheter tipBLOOD GAS, [id number] 13:08:00 Test Item Value Reference Range Comments PH ARTERIAL (BEAKER) (test jyqb=246) 7.42 7.35-7.45 PCO2 ARTERIAL (BEAKER) (test txqk=058) 42 mmHg 35-45 PO2 ARTERIAL (BEAKER) (test eirs=960) 239 mmHg 80-90 O2 SATURATION ARTERIAL (BEAKER) (test stpv=656) 99.6 % 96.0-97.0 HCO3 ARTERIAL (BEAKER) (test lrem=493) 27 mmol/L 21-29 BASE EXCESS ARTERIAL (BEAKER) (test oorv=300) 2.1 mmol/L -2.0-3.0 PATIENT TEMPERATURE (BEAKER) (test lgwy=1354) 36.6 C FIO2 (BEAKER) (test sqkm=3572) 100.0 % GLUCOSE-STAT [id number] 13:08:00 Test Item Value Reference Range Comments GLUCOSE RANDOM (BEAKER) (test tqqt=950) 194 mg/dL 70-110 HGB/HCT (H&H) - STAT [id number] 13:08:00 Test Item Value Reference Range Comments HEMOGLOBIN (BEAKER) (test qxmd=979) 8.8 g/dL 12.0-15.0 HEMATOCRIT (BEAKER) (test vwkp=836) 26.0 % 36.0-45.0 CALCIUM, [id number] 13:08:00 Test Item Value Reference Range Comments CALCIUM IONIZED (BEAKER) (test asoa=566) 1.08 mmol/L 1.12-1.27 PH, BLOOD (BEAKER) (test yjmf=4900) 7.41 SODIUM NA-STAT [id number] 13:07:00 Test Item Value Reference Range Comments SODIUM (BEAKER) (test ntfd=193) 140 meq/L 135-148 POTASSIUM-STAT [id number] 13:07:00 Test Item Value Reference Range Comments POTASSIUM (BEAKER) (test keyv=502) 3.7 meq/L 3.6-5.5 SODIUM NA-STAT [id number] 11:39:00 Test Item Value Reference Range Comments SODIUM (BEAKER) (test sanw=467) 141 meq/L 135-148 POTASSIUM-STAT [id number] 11:39:00 Test Item Value Reference Range Comments POTASSIUM (BEAKER) (test rtvb=778) 3.6 meq/L 3.6-5.5 BLOOD GAS, [id number] 11:39:00 Test Item Value Reference Range Comments PH ARTERIAL (BEAKER) (test ghkx=465) 7.44 7.35-7.45 PCO2 ARTERIAL (BEAKER) (test defg=642) 42 mmHg 35-45 PO2 ARTERIAL (BEAKER) (test qxzj=783) 234 mmHg 80-90 O2 SATURATION ARTERIAL (BEAKER) (test afib=617) 99.6 % 96.0-97.0 HCO3 ARTERIAL (BEAKER) (test pvgi=063) 28 mmol/L 21-29 BASE EXCESS ARTERIAL (BEAKER) (test eewz=706) 3.4 mmol/L -2.0-3.0 PATIENT TEMPERATURE (BEAKER) (test hlbm=9133) 36.8 C FIO2 (BEAKER) (test xsek=0785) 86.0 % GLUCOSE-STAT [id number] 11:39:00 Test Item Value Reference Range Comments GLUCOSE RANDOM (BEAKER) (test kwwh=769) 194 mg/dL 70-110 HGB/HCT (H&H) - STAT [id number] 11:39:00 Test Item Value Reference Range Comments HEMOGLOBIN (BEAKER) (test ptlc=734) 8.8 g/dL 12.0-15.0 HEMATOCRIT (BEAKER) (test qinp=303) 26.0 % 36.0-45.0 CALCIUM, [id number] 11:39:00 Test Item Value Reference Range Comments CALCIUM IONIZED (BEAKER) (test zqqp=652) 1.06 mmol/L 1.12-1.27 PH, BLOOD (BEAKER) (test znde=4000) 7.44 BLOOD GAS, [id number] 10:56:00 Test Item Value Reference Range Comments PH ARTERIAL (BEAKER) (test blxx=547) 7.43 7.35-7.45 PCO2 ARTERIAL (BEAKER) (test ihmf=974) 46 mmHg 35-45 PO2 ARTERIAL (BEAKER) (test ltlr=152) 223 mmHg 80-90 O2 SATURATION ARTERIAL (BEAKER) (test kfpj=666) 99.5 % 96.0-97.0 HCO3 ARTERIAL (BEAKER) (test ytxs=503) 30 mmol/L 21-29 BASE EXCESS ARTERIAL (BEAKER) (test hqsw=999) 4.6 mmol/L -2.0-3.0 PATIENT TEMPERATURE (BEAKER) (test enpo=8656) 37.0 C FIO2 (BEAKER) (test jkjr=5044) 100.0 % GLUCOSE-STAT [id number] 10:56:00 Test Item Value Reference Range Comments GLUCOSE RANDOM (BEAKER) (test psut=424) 190 mg/dL 70-110 HGB/HCT (H&H) - STAT [id number] 10:56:00 Test Item Value Reference Range Comments HEMOGLOBIN (BEAKER) (test qvvr=003) 8.7 g/dL 12.0-15.0 HEMATOCRIT (BEAKER) (test zxyo=787) 26.0 % 36.0-45.0 SODIUM NA-STAT [id number] 10:55:00 Test Item Value Reference Range Comments SODIUM (BEAKER) (test lzbu=680) 142 meq/L 135-148 POTASSIUM-STAT [id number] 10:55:00 Test Item Value Reference Range Comments POTASSIUM (BEAKER) (test jupa=925) 3.5 meq/L 3.6-5.5 [id number] 08:41:00 Test Item Value Reference Range Comments MAGNESIUM (BEAKER) (test efpi=967) 2.0 mg/dL 1.6-2.6 BLOOD GAS, [id number] 07:57:00 Test Item Value Reference Range Comments PH ARTERIAL (BEAKER) (test tzyb=510) 7.48 7.35-7.45 PCO2 ARTERIAL (BEAKER) (test tghl=745) 37 mmHg 35-45 PO2 ARTERIAL (BEAKER) (test hizw=082) 71 mmHg 80-90 O2 SATURATION ARTERIAL (BEAKER) (test fqrk=454) 94.8 % 96.0-97.0 HCO3 ARTERIAL (BEAKER) (test fkwc=236) 27 mmol/L 21-29 BASE EXCESS ARTERIAL (BEAKER) (test otzh=402) 3.5 mmol/L -2.0-3.0 PATIENT TEMPERATURE (BEAKER) (test eoca=1331) 37.8 C FIO2 (BEAKER) (test qnvz=6793) 32.0 % POCT-GLUCOSE [id number] 07:50:00 Test Item Value Reference Range Comments POC-GLUCOSE METER (BEAKER) 246 mg/dL 70-110 TESTED AT [facility] [address] [place] [address] (test zmgc=5331) [facility] [address] RAD, CHEST, 1 VIEW, NON [id number] 04:54:00Reason for exam:-> impellaShould this be performed at the bedside?->YesFINAL REPORT CLINICAL INDICATION: Support lines. Comparison: 07/23/2017 The cardiomediastinal contours are stable. Central pulmonary vascular prominence and bilateral parenchymalopacities are similar to previous. There is no pneumothorax. Support lines are stable. Signed: Adelso Sorensen Verified Date/Time: 07/24/2017 04:54:08 Reading Location: [address] Reading Room POCT-GLUCOSE [id number] 04:08:00 Test Item Value Reference Range Comments POC-GLUCOSE METER (BEAKER) 137 mg/dL 70-110 TESTED AT [facility] [address] (test qlbc=8196) [place] [address] [id number] 03:02:00 Test Item Value Reference Range Comments PHOSPHORUS (BEAKER) (test dpdx=342) 3.7 mg/dL 2.3-4.7 [id number] 03:02:00 Test Item Value Reference Range Comments MAGNESIUM (BEAKER) (test jjap=411) 2.3 mg/dL 1.6-2.6 BASIC METABOLIC [id number] 03:02:00 Test Item Value Reference Range Comments SODIUM (BEAKER) (test 145 meq/L 136-145 fxde=771) POTASSIUM (BEAKER) (test 4.0 meq/L 3.5-5.1 vbee=768) CHLORIDE (BEAKER) (test 106 meq/L 98-107 uegk=450) CO2 (BEAKER) (test 26 meq/L 22-29 baup=638) BLOOD UREA NITROGEN 26 mg/dL 7-21 (BEAKER) (test jtzo=000) CREATININE (BEAKER) (test 1.47 mg/dL 0.57-1.25 reys=977) GLUCOSE RANDOM (BEAKER) 141 mg/dL 70-105 (test alba=318) CALCIUM (BEAKER) (test 9.0 mg/dL 8.4-10.2 dheh=510) EGFR (BEAKER) (test 43 mL/min/1.73 sq m ESTIMATED GFR IS NOT rqsk=4286) ACCURATE CREATININE CLEARANCE IN PREDICTING GLOMERULAR FILTRATION RATE. ESTIMATED GFR IS NOT APPLICABLE FOR DIALYSIS PATIENTS. HEPATIC FUNCTION [id number] 03:02:00 Test Item Value Reference Range Comments TOTAL PROTEIN (BEAKER) (test nldi=403) 6.6 gm/dL 6.0-8.3 ALBUMIN (BEAKER) (test dndy=0089) 3.2 g/dL 3.5-5.0 BILIRUBIN TOTAL (BEAKER) (test hjzx=214) 1.2 mg/dL 0.2-1.2 BILIRUBIN DIRECT (BEAKER) (test bual=093) 0.6 mg/dL 0.1-0.5 ALKALINE PHOSPHATASE (BEAKER) (test ecrn=063) 55 U/L 40-150 AST (SGOT) (BEAKER) (test brbr=420) 33 U/L 5-34 ALT (SGPT) (BEAKER) (test cjrc=189) 25 U/L 6-55 LACTATE DEHYDROGENASE (LDH)2017-07-24 03:02:00 Test Item Value Reference Range Comments LACTATE DEHYDROGENASE (BEAKER) (test iezw=489) 879 U/L 125-220 CBC W/PLT COUNT & AUTO [id number] 02:53:00 Test Item Value Reference Range Comments WHITE BLOOD CELL COUNT (BEAKER) (test sjud=669) 12.6 K/ L 3.5-10.5 RED BLOOD CELL COUNT (BEAKER) (test xmlp=696) 2.93 M/ L 3.93-5.22 HEMOGLOBIN (BEAKER) (test bpyv=966) 8.7 GM/DL 11.2-15.7 HEMATOCRIT (BEAKER) (test kabj=624) 28.3 % 34.1-44.9 MEAN CORPUSCULAR VOLUME (BEAKER) (test xdqj=561) 96.6 fL 79.4-94.8 MEAN CORPUSCULAR HEMOGLOBIN (BEAKER) (test 29.7 pg 25.6-32.2 vjfp=149) MEAN CORPUSCULAR HEMOGLOBIN CONC (BEAKER) (test 30.7 GM/DL 32.2-35.5 anop=433) RED CELL DISTRIBUTION WIDTH (BEAKER) (test 14.7 % 11.7-14.4 iweu=969) PLATELET COUNT (BEAKER) (test ljai=218) 126 K/CU MM 150-450 MEAN PLATELET VOLUME (BEAKER) (test dfta=281) 11.0 fL 9.4-12.3 NUCLEATED RED BLOOD CELLS (BEAKER) (test 0 /100 WBC 0-0 lmnk=083) NEUTROPHILS RELATIVE PERCENT (BEAKER) (test 78 % bdms=497) LYMPHOCYTES RELATIVE PERCENT (BEAKER) (test 10 % tmgb=077) MONOCYTES RELATIVE PERCENT (BEAKER) (test 10 % yyvi=769) EOSINOPHILS RELATIVE PERCENT (BEAKER) (test 1 % runs=055) BASOPHILS RELATIVE PERCENT (BEAKER) (test 0 % caho=090) NEUTROPHILS ABSOLUTE COUNT (BEAKER) (test 9.85 K/ L 1.56-6.13 wjoi=213) LYMPHOCYTES ABSOLUTE COUNT (BEAKER) (test 1.27 K/ L 1.18-3.74 doli=700) MONOCYTES ABSOLUTE COUNT (BEAKER) (test 1.25 K/ L 0.24-0.36 smad=183) EOSINOPHILS ABSOLUTE COUNT (BEAKER) (test 0.10 K/ L 0.04-0.36 juid=111) BASOPHILS ABSOLUTE COUNT (BEAKER) (test 0.05 K/ L 0.01-0.08 ddtz=688) IMMATURE GRANULOCYTES-RELATIVE PERCENT (BEAKER) 1 % 0-1 (test tdwz=2611) [id number] 02:50:00 Test Item Value Reference Range Comments PROTIME (BEAKER) (test mqbt=422) 16.7 seconds 11.7-14.7 INR (BEAKER) (test uvwp=555) 1.4 <=5.9 PARTIAL THROMBOPLASTIN TIME (BEAKER) (test 78.5 seconds 22.5-36.0 aimx=884) RECOMMENDED COUMADIN/WARFARIN INR THERAPY RANGESSTANDARD DOSE: 2.0 - 3.0 Includes: PROPHYLAXIS forvenous thrombosis, systemic embolization; TREATMENT for venous thrombosis and/or pulmonary embolus.HIGH RISK: Target INR is 2.5-3.5 for patients with mechanical heart valves.BLOOD [id number] 00:00:00 Test Item Value Reference Range Comments CULTURE (BEAKER) (test dvzr=5306) No growth in 5 days BLOOD [id number] 00:00:00 Test Item Value Reference Range Comments CULTURE (BEAKER) (test etlx=8980) No growth in 5 days [id number] 22:01:00 Test Item Value Reference Range Comments MAGNESIUM (BEAKER) (test kxqe=600) 2.0 mg/dL 1.6-2.6 POCT-GLUCOSE [id number] 19:39:00 Test Item Value Reference Range Comments POC-GLUCOSE METER (BEAKER) 135 mg/dL 70-110 TESTED AT [facility] [address] [facility] (test ykuz=3387) [facility] [address] BASIC METABOLIC [id number] 19:08:00 Test Item Value Reference Range Comments SODIUM (BEAKER) (test 145 meq/L 136-145 zuog=109) POTASSIUM (BEAKER) (test 3.9 meq/L 3.5-5.1 tnec=779) CHLORIDE (BEAKER) (test 106 meq/L 98-107 vmiu=067) CO2 (BEAKER) (test 28 meq/L 22-29 glit=155) BLOOD UREA NITROGEN 26 mg/dL 7-21 (BEAKER) (test efcw=596) CREATININE (BEAKER) (test 1.45 mg/dL 0.57-1.25 qlze=336) GLUCOSE RANDOM (BEAKER) 119 mg/dL 70-105 (test omzv=884) CALCIUM (BEAKER) (test 9.2 mg/dL 8.4-10.2 buxx=007) EGFR (BEAKER) (test 43 mL/min/1.73 sq m ESTIMATED GFR IS NOT jzbz=8012) ACCURATE CREATININE CLEARANCE IN PREDICTING GLOMERULAR FILTRATION RATE. ESTIMATED GFR IS NOT APPLICABLE FOR DIALYSIS PATIENTS. [id number] 19:06:00 Test Item Value Reference Range Comments PHOSPHORUS (BEAKER) (test fflo=597) 3.7 mg/dL 2.3-4.7 VANCOMYCIN LEVEL, [id number] 16:33:00 Test Item Value Reference Range Comments VANCOMYCIN TROUGH (BEAKER) (test kice=580) 17.8 ug/mL 10.0-20.0 If vancomycin trough level > 20 mcg/mL, hold next vancomycin dose, and contact MD and pharmacist.VARICELLA ZOSTER ANTIBODY, [id number] 14:47:00 Test Item Value Reference Range Comments VARICELLA ZOSTER IGG (AL) (BEAKER) (test xexf=5057) 2.3 Al VARICELLA ZOSTER RESULT INTERPRETATIONS: <=0.8 Al Nonreactive: Presumed non-immune to VZV 0.9-1.0 Al Equivocal >=1.1 Al Reactive: Presumed immune to VZVCYTOMEGALOVIRUS ANTIBODY, [id number] 14:46:00 Test Item Value Reference Range Comments CYTOMEGALOVIRUS IGG ANTIBODY (BEAKER) (test Negative jxno=603) CYTOMEGALOVIRUS ANTIBODY, [id number] 14:46:00 Test Item Value Reference Range Comments CYTOMEGALOVIRUS IGM ANTIBODY (BEAKER) (test Negative stgs=153) EBV-VCA ANTIBODY, [id number] 14:46:00 Test Item Value Reference Range Comments MARIO-CARMEN VCA IGG (BEAKER) (test frih=060) Positive EBV-VCA ANTIBODY, [id number] 14:46:00 Test Item Value Reference Range Comments MARIO-CARMEN VCA IGM (BEAKER) (test rymk=009) Negative HERPES VIRUS ANTIBODY, [id number] 14:45:00 Test Item Value Reference Range Comments HERPES VIRUS IGG (BEAKER) (test rcjl=6687) Negative HSV IgG 1=NEGATIVEHSV IgG 2=NEGATIVETOXOPLASMA GONDII ANTIBODY, [id number] 14 :45:00 Test Item Value Reference Range Comments TOXOPLASMA GONDII IGG (BEAKER) (test jgra=260) Negative [id number] 14:37:00 Test Item Value Reference Range Comments PARTIAL THROMBOPLASTIN TIME (BEAKER) (test 69.5 seconds 22.5-36.0 zvih=052) OCCULT BLOOD, [id number] 14:34:00 Test Item Value Reference Range Comments FECAL OCCULT BLOOD (BEAKER) (test jtyr=941) Negative Negative POCT-GLUCOSE [id number] 14:20:00 Test Item Value Reference Range Comments POC-GLUCOSE METER (BEAKER) 166 mg/dL 70-110 TESTED AT [address] (test eiuv=0905) [facility] [address] POCT-GLUCOSE [id number] 14:20:00 Test Item Value Reference Range Comments POC-GLUCOSE METER (BEAKER) 82 mg/dL 70-110 TESTED AT [address] (test gsav=8963) [place] [id number] 13:00:00 Test Item Value Reference Range Comments PHOSPHORUS (BEAKER) (test nxym=821) 3.2 mg/dL 2.3-4.7 BASIC METABOLIC [id number] 13:00:00 Test Item Value Reference Range Comments SODIUM (BEAKER) (test 143 meq/L 136-145 ooqk=947) POTASSIUM (BEAKER) (test 3.8 meq/L 3.5-5.1 xeyu=343) CHLORIDE (BEAKER) (test 104 meq/L 98-107 tsdn=381) CO2 (BEAKER) (test 29 meq/L 22-29 ckva=859) BLOOD UREA NITROGEN 28 mg/dL 7-21 (BEAKER) (test jups=423) CREATININE (BEAKER) (test 1.44 mg/dL 0.57-1.25 rltm=348) GLUCOSE RANDOM (BEAKER) 171 mg/dL 70-105 (test xmnt=272) CALCIUM (BEAKER) (test 9.1 mg/dL 8.4-10.2 gizm=435) EGFR (BEAKER) (test 44 mL/min/1.73 sq m ESTIMATED GFR IS NOT xryl=4269) ACCURATE CREATININE CLEARANCE IN PREDICTING GLOMERULAR FILTRATION RATE. ESTIMATED GFR IS NOT APPLICABLE FOR DIALYSIS PATIENTS. POCT-GLUCOSE [id number] 12:29:00 Test Item Value Reference Range Comments POC-GLUCOSE METER (BEAKER) 179 mg/dL 70-110 TESTED AT [address] (test wcfh=3078) [place] [address] CREATININE [id number] 11:15:00 Test Item Value Reference Range Comments CREATININE CLEARANCE (BEAKER) 45.8 mL/min 70.0-140.0 (test fofz=663) VOLUME, TOTAL (BEAKER) (test 3400 ml etfh=2725) CREATININE URINE (BEAKER) (test 36.8 mg/dL etyw=522) FFML-INIHOXSREED-110 (BEAKER) Анна Encarnacion MD (test nbna=4627) (electronic signature) PATIENT HEIGHT (CM) (BEAKER) 165.1 cm (test vwhu=6214) PATIENT WEIGHT (KG) (BEAKER) 84.100 kg (test chmq=3220) [id number] 09:15:00 Test Item Value Reference Range Comments POTASSIUM (BEAKER) (test qkfp=122) 4.1 meq/L 3.5-5.1 PRN - repeat potassium levels every 1 hour until glucose level is less than 450 mg/[id number] 09:15:00 Test Item Value Reference Range Comments MAGNESIUM (BEAKER) (test zbha=666) 2.4 mg/dL 1.6-2.6 PRN - repeat potassium levels every 1 hour until glucose level is less than 450 mg/dLPOCT-GLUCOSE [id number] 08:47:00 Test Item Value Reference Range Comments POC-GLUCOSE METER (BEAKER) 155 mg/dL 70-110 TESTED AT [address] (test jtgd=3601) [place] [address] POCT-GLUCOSE [id number] 06:12:00 Test Item Value Reference Range Comments POC-GLUCOSE METER (BEAKER) 143 mg/dL 70-110 TESTED AT [facility] [address] [facility] (test ocgx=3022) [facility] [address] POCT-GLUCOSE [id number] 06:12:00 Test Item Value Reference Range Comments POC-GLUCOSE METER (BEAKER) 123 mg/dL 70-110 TESTED AT [place] [id number] [facility] (test rutg=5304) [facility] [address] RAD, CHEST, 1 VIEW, NON [id number] 05:36:00Reason for exam:->respiratory insufficiencyFINAL REPORT Chest one view. Clinical history: respiratory insufficiency Comparison: Chest radiograph 07/22/2017 Technique: A single frontal view of the chest was obtained. Findings: Cardiomediastinal contours are unchanged. There is a right IJ [place]-Jagdeep catheter, with tip inthe right pulmonary artery. [...] Verified Date/Time: 07/23/2017 05:36:35 Reading Location: [address] Reading Room CALCIUM, [id number] 05:19:00 Test Item Value Reference Range Comments CALCIUM IONIZED (BEAKER) (test kkoh=291) 1.12 mmol/L 1.12-1.27 PH, BLOOD (BEAKER) (test lmrc=3682) 7.40 OXYGEN SATURATION, [id number] 05:18:00 Test Item Value Reference Range Comments O2 SATURATION (MEASURED) (BEAKER) (test aduj=4280) 63.1 % POCT-GLUCOSE [id number] 05:05:00 Test Item Value Reference Range Comments POC-GLUCOSE METER (BEAKER) 131 mg/dL 70-110 TESTED AT [facility] [address] (test qovz=5594) [place] [address] BLOOD GAS, [id number] 04:58:00 Test Item Value Reference Range Comments PH ARTERIAL (BEAKER) (test yrin=396) 7.41 7.35-7.45 PCO2 ARTERIAL (BEAKER) (test jbng=794) 51 mmHg 35-45 PO2 ARTERIAL (BEAKER) (test wxdo=422) 93 mmHg 80-90 O2 SATURATION ARTERIAL (BEAKER) (test vscp=316) 96.9 % 96.0-97.0 HCO3 ARTERIAL (BEAKER) (test pjfo=215) 31 mmol/L 21-29 BASE EXCESS ARTERIAL (BEAKER) (test qxtr=159) 5.9 mmol/L -2.0-3.0 PATIENT TEMPERATURE (BEAKER) (test zyhy=5584) 37.4 C FIO2 (BEAKER) (test vjws=3122) 70.0 % [id number] 03:35:00 Test Item Value Reference Range Comments PARTIAL THROMBOPLASTIN TIME (BEAKER) (test 70.8 seconds 22.5-36.0 lzmw=919) [id number] 03:34:00 Test Item Value Reference Range Comments PHOSPHORUS (BEAKER) (test hizi=786) 3.0 mg/dL 2.3-4.7 [id number] 03:34:00 Test Item Value Reference Range Comments MAGNESIUM (BEAKER) (test nuwu=726) 2.1 mg/dL 1.6-2.6 BASIC METABOLIC [id number] 03:34:00 Test Item Value Reference Range Comments SODIUM (BEAKER) (test 144 meq/L 136-145 dmba=374) POTASSIUM (BEAKER) (test 3.9 meq/L 3.5-5.1 zlyd=957) CHLORIDE (BEAKER) (test 105 meq/L 98-107 eies=751) CO2 (BEAKER) (test 29 meq/L 22-29 ecin=099) BLOOD UREA NITROGEN 29 mg/dL 7-21 (BEAKER) (test ekma=804) CREATININE (BEAKER) (test 1.54 mg/dL 0.57-1.25 vvew=741) GLUCOSE RANDOM (BEAKER) 119 mg/dL 70-105 (test herc=986) CALCIUM (BEAKER) (test 9.1 mg/dL 8.4-10.2 kote=379) EGFR (BEAKER) (test 40 mL/min/1.73 sq m ESTIMATED GFR IS NOT pjdg=4884) ACCURATE CREATININE CLEARANCE IN PREDICTING GLOMERULAR FILTRATION RATE. ESTIMATED GFR IS NOT APPLICABLE FOR DIALYSIS PATIENTS. HEPATIC FUNCTION [id number] 03:34:00 Test Item Value Reference Range Comments TOTAL PROTEIN (BEAKER) (test pahx=332) 6.7 gm/dL 6.0-8.3 ALBUMIN (BEAKER) (test ymta=4713) 3.3 g/dL 3.5-5.0 BILIRUBIN TOTAL (BEAKER) (test cwwq=845) 1.2 mg/dL 0.2-1.2 BILIRUBIN DIRECT (BEAKER) (test dyew=915) 0.6 mg/dL 0.1-0.5 ALKALINE PHOSPHATASE (BEAKER) (test wmhh=039) 51 U/L 40-150 AST (SGOT) (BEAKER) (test hsca=275) 48 U/L 5-34 ALT (SGPT) (BEAKER) (test pgsv=169) 29 U/L 6-55 LACTATE DEHYDROGENASE (LDH)2017-07-23 03:34:00 Test Item Value Reference Range Comments LACTATE DEHYDROGENASE (BEAKER) (test ouus=135) 1020 U/L 125-220 CBC W/PLT COUNT & AUTO [id number] 03:25:00 Test Item Value Reference Range Comments WHITE BLOOD CELL COUNT (BEAKER) (test rdqx=746) 11.7 K/ L 3.5-10.5 RED BLOOD CELL COUNT (BEAKER) (test pirf=105) 3.01 M/ L 3.93-5.22 HEMOGLOBIN (BEAKER) (test cvif=224) 9.0 GM/DL 11.2-15.7 HEMATOCRIT (BEAKER) (test olbo=603) 28.9 % 34.1-44.9 MEAN CORPUSCULAR VOLUME (BEAKER) (test gbci=089) 96.0 fL 79.4-94.8 MEAN CORPUSCULAR HEMOGLOBIN (BEAKER) (test 29.9 pg 25.6-32.2 ackl=914) MEAN CORPUSCULAR HEMOGLOBIN CONC (BEAKER) (test 31.1 GM/DL 32.2-35.5 qybc=197) RED CELL DISTRIBUTION WIDTH (BEAKER) (test 15.0 % 11.7-14.4 mtvr=341) PLATELET COUNT (BEAKER) (test owfu=434) 128 K/CU MM 150-450 MEAN PLATELET VOLUME (BEAKER) (test cldh=180) 11.3 fL 9.4-12.3 NUCLEATED RED BLOOD CELLS (BEAKER) (test 0 /100 WBC 0-0 jrwb=161) NEUTROPHILS RELATIVE PERCENT (BEAKER) (test 78 % ijtc=436) LYMPHOCYTES RELATIVE PERCENT (BEAKER) (test 11 % tqdy=025) MONOCYTES RELATIVE PERCENT (BEAKER) (test 10 % ffdp=082) EOSINOPHILS RELATIVE PERCENT (BEAKER) (test 1 % ktof=856) BASOPHILS RELATIVE PERCENT (BEAKER) (test 0 % vvhf=789) NEUTROPHILS ABSOLUTE COUNT (BEAKER) (test 9.07 K/ L 1.56-6.13 mvix=134) LYMPHOCYTES ABSOLUTE COUNT (BEAKER) (test 1.25 K/ L 1.18-3.74 uzhz=386) MONOCYTES ABSOLUTE COUNT (BEAKER) (test 1.12 K/ L 0.24-0.36 zgcg=662) EOSINOPHILS ABSOLUTE COUNT (BEAKER) (test 0.12 K/ L 0.04-0.36 owzu=695) BASOPHILS ABSOLUTE COUNT (BEAKER) (test 0.05 K/ L 0.01-0.08 hiqv=104) IMMATURE GRANULOCYTES-RELATIVE PERCENT (BEAKER) 1 % 0-1 (test ptqu=9820) POCT-GLUCOSE [id number] 03:09:00 Test Item Value Reference Range Comments POC-GLUCOSE METER (BEAKER) 114 mg/dL 70-110 TESTED AT [address] (test djpi=5042) [place] [id number] POCT-GLUCOSE [id number] 03:09:00 Test Item Value Reference Range Comments POC-GLUCOSE METER (BEAKER) 122 mg/dL 70-110 TESTED AT [address] (test rnis=4403) [place] [id number] BASIC METABOLIC [id number] 00:32:00 Test Item Value Reference Range Comments SODIUM (BEAKER) (test 144 meq/L 136-145 owko=849) POTASSIUM (BEAKER) (test 4.2 meq/L 3.5-5.1 phks=235) CHLORIDE (BEAKER) (test 105 meq/L 98-107 bfhj=142) CO2 (BEAKER) (test 28 meq/L 22-29 zhfd=077) BLOOD UREA NITROGEN 30 mg/dL 7-21 (BEAKER) (test nlwf=044) CREATININE (BEAKER) (test 1.56 mg/dL 0.57-1.25 zrwr=770) GLUCOSE RANDOM (BEAKER) 131 mg/dL 70-105 (test lquc=148) CALCIUM (BEAKER) (test 9.0 mg/dL 8.4-10.2 megq=519) EGFR (BEAKER) (test 40 mL/min/1.73 sq m ESTIMATED GFR IS NOT orfz=4891) ACCURATE CREATININE CLEARANCE IN PREDICTING GLOMERULAR FILTRATION RATE. ESTIMATED GFR IS NOT APPLICABLE FOR DIALYSIS PATIENTS. [id number] 00:31:00 Test Item Value Reference Range Comments PHOSPHORUS (BEAKER) (test omqf=981) 3.4 mg/dL 2.3-4.7 POCT-GLUCOSE [id number] 00:10:00 Test Item Value Reference Range Comments POC-GLUCOSE METER (BEAKER) 140 mg/dL 70-110 TESTED AT [address] (test udzq=1519) [facility] [address] POCT-GLUCOSE [id number] 00:08:00 Test Item Value Reference Range Comments POC-GLUCOSE METER (BEAKER) 121 mg/dL 70-110 TESTED AT [address] (test zmek=7873) [facility] [address] POCT-GLUCOSE [id number] 00:08:00 Test Item Value Reference Range Comments POC-GLUCOSE METER (BEAKER) 112 mg/dL 70-110 TESTED AT [address] (test beah=6283) [facility] [address] POCT-GLUCOSE [id number] 00:08:00 Test Item Value Reference Range Comments POC-GLUCOSE METER (BEAKER) 84 mg/dL 70-110 TESTED AT [address] (test qujt=4611) [facility] [address] BASIC METABOLIC [id number] 20:36:00 Test Item Value Reference Range Comments SODIUM (BEAKER) (test 145 meq/L 136-145 ypwb=369) POTASSIUM (BEAKER) (test 3.6 meq/L 3.5-5.1 flxc=990) CHLORIDE (BEAKER) (test 106 meq/L 98-107 kdsu=557) CO2 (BEAKER) (test 31 meq/L 22-29 vfyu=601) BLOOD UREA NITROGEN 32 mg/dL 7-21 (BEAKER) (test jzkr=545) CREATININE (BEAKER) (test 1.56 mg/dL 0.57-1.25 fesd=420) GLUCOSE RANDOM (BEAKER) 85 mg/dL 70-105 (test frzi=189) CALCIUM (BEAKER) (test 9.0 mg/dL 8.4-10.2 uwxf=262) EGFR (BEAKER) (test 40 mL/min/1.73 sq m ESTIMATED GFR IS NOT ybqg=9411) ACCURATE CREATININE CLEARANCE IN PREDICTING GLOMERULAR FILTRATION RATE. ESTIMATED GFR IS NOT APPLICABLE FOR DIALYSIS PATIENTS. [id number] 20:36:00 Test Item Value Reference Range Comments MAGNESIUM (BEAKER) (test rddc=569) 2.4 mg/dL 1.6-2.6 [id number] 18:26:00 Test Item Value Reference Range Comments PHOSPHORUS (BEAKER) (test ydwp=482) 2.4 mg/dL 2.3-4.7 BASIC METABOLIC [id number] 18:26:00 Test Item Value Reference Range Comments SODIUM (BEAKER) (test 144 meq/L 136-145 plcj=385) POTASSIUM (BEAKER) (test 3.9 meq/L 3.5-5.1 cbls=822) CHLORIDE (BEAKER) (test 106 meq/L 98-107 jvrl=681) CO2 (BEAKER) (test 30 meq/L 22-29 lxat=971) BLOOD UREA NITROGEN 32 mg/dL 7-21 (BEAKER) (test rtcy=545) CREATININE (BEAKER) (test 1.67 mg/dL 0.57-1.25 twdg=749) GLUCOSE RANDOM (BEAKER) 141 mg/dL 70-105 (test hoxq=843) CALCIUM (BEAKER) (test 9.1 mg/dL 8.4-10.2 seat=972) EGFR (BEAKER) (test 37 mL/min/1.73 sq m ESTIMATED GFR IS NOT qecg=7833) ACCURATE CREATININE CLEARANCE IN PREDICTING GLOMERULAR FILTRATION RATE. ESTIMATED GFR IS NOT APPLICABLE FOR DIALYSIS PATIENTS. LACTIC ACID, ARTERIAL, WHOLE [id number] 18:22:00 Test Item Value Reference Range Comments LACTATE BLOOD ARTERIAL (2) (BEAKER) (test 1.0 mmol/L 0.5-2.2 rrpn=2482) Effective 08/06/2015: Units/Reference Range ChangeNew: 0.5-2.2 mmol/L Previous: 5 -20 mg/dLPOCT-GLUCOSE [id number] 17:56:00 Test Item Value Reference Range Comments POC-GLUCOSE METER (BEAKER) 138 mg/dL 70-110 TESTED AT [address] (test fobo=6956) [place] [address] [id number] 16:19:00 Test Item Value Reference Range Comments POTASSIUM (BEAKER) (test hdlf=845) 3.8 meq/L 3.5-5.1 PRN - repeat potassium levels every 1 hour until glucose level is less than 450 mg/[id number] 16:06:00 Test Item Value Reference Range Comments PARTIAL THROMBOPLASTIN TIME (BEAKER) (test 71.3 seconds 22.5-36.0 lsmq=075) OXYGEN SATURATION, [id number] 15:58:00 Test Item Value Reference Range Comments O2 SATURATION (MEASURED) (BEAKER) (test sqka=7857) 58.6 % calibrationPOCT-GLUCOSE [id number] 15:51:00 Test Item Value Reference Range Comments POC-GLUCOSE METER (BEAKER) 147 mg/dL 70-110 TESTED AT [address] (test tufh=7127) [place] [address] RAD, CHEST, 1 VIEW, NON [id number] 14:57:00Reason for exam:->s/p CVC placement Should this be performed at the bedside?->YesFINAL REPORT TECHNIQUE: Frontal chest radiograph dated 07/22/2017. CLINICAL HISTORY: CVC placement COMPARISON STUDY: Chest radiograph performed earlier the same day. IMPRESSION:There has been interval placement of a right-sided [place]- Jagdeep catheter with the tip in the main pulmonary artery. Impella device is unchanged in appearance. There is left lung base atelectasis. No pleural effusion or pneumothorax. Cardiomediastinal silhouette is normal in size. No pulmonary edema. Bonesare osteopenic. No fracture. Signed: Dawson [place] Verified Date/Time: 07/22/2017 14:57:48 Reading Location: [facility] Radiology Reading Room PROTEIN ELECTROPHORESIS, [id number] 14:45:00 Test Item Value Reference Range Comments ALBUMIN FRACTION (BEAKER) 3.0 g/dL 3.5-5.5 (test yxdz=445) ALPHA 1 FRACTION (BEAKER) 0.4 g/dL 0.2-0.4 (test octx=752) ALPHA 2 FRACTION (BEAKER) 0.5 g/dL 0.5-0.9 (test yjjz=421) BETA FRACTION (BEAKER) (test 1.0 g/dL 0.6-1.1 fvue=982) GAMMA GLOBULIN FRACTION 1.2 g/dL 0.7-1.7 (BEAKER) (test zwem=822) INTERPRETATION-119 (BEAKER) Albumin decreased. Alpha (test hthv=1751) globulin percentages increased. This suggests an acute phase response. [id number] (BEAKER) Анна Encarnacion MD (electronic (test orpa=8380) signature) PROTEIN TOTAL SERUM, SPEP 6.1 gm/dL 6.0-8.3 (BEAKER) (test qodw=1302) POCT-GLUCOSE [id number] 14:34:00 Test Item Value Reference Range Comments POC-GLUCOSE METER (BEAKER) 137 mg/dL 70-110 TESTED AT [address] (test aiee=0390) [facility] [address] ANTI-NUCLEAR ANTIBODY (ROSLYN)2017-07-22 13:24:00 Test Item Value Reference Range Comments ANTI-NUCLEAR ANTIBODY (ROSLYN) (BEAKER) (test Positive Negative pizu=754) ROSLYN TITER AND [id number] 13:24:00 Test Item Value Reference Range Comments ROSLYN TITER (BEAKER) (test ukrt=9670) :640 ROSLYN PATTERN (BEAKER) (test iewd=9709) Homogeneous [id number] 12:50:00 Test Item Value Reference Range Comments PHOSPHORUS (BEAKER) (test ucrh=319) 2.5 mg/dL 2.3-4.7 BASIC METABOLIC [id number] 12:50:00 Test Item Value Reference Range Comments SODIUM (BEAKER) (test 145 meq/L 136-145 umqt=045) POTASSIUM (BEAKER) (test 3.6 meq/L 3.5-5.1 vdqj=336) CHLORIDE (BEAKER) (test 107 meq/L 98-107 jzwi=509) CO2 (BEAKER) (test 30 meq/L 22-29 npem=023) BLOOD UREA NITROGEN 37 mg/dL 7-21 (BEAKER) (test lsts=699) CREATININE (BEAKER) (test 1.69 mg/dL 0.57-1.25 araf=404) GLUCOSE RANDOM (BEAKER) 154 mg/dL 70-105 (test ntaz=235) CALCIUM (BEAKER) (test 8.9 mg/dL 8.4-10.2 knmy=631) EGFR (BEAKER) (test 36 mL/min/1.73 sq m ESTIMATED GFR IS NOT szfj=1611) ACCURATE CREATININE CLEARANCE IN PREDICTING GLOMERULAR FILTRATION RATE. ESTIMATED GFR IS NOT APPLICABLE FOR DIALYSIS PATIENTS. BLOOD GAS, [id number] 12:36:00 Test Item Value Reference Range Comments PH ARTERIAL (BEAKER) (test kzfb=780) 7.48 7.35-7.45 PCO2 ARTERIAL (BEAKER) (test sqdo=523) 44 mmHg 35-45 PO2 ARTERIAL (BEAKER) (test ihwd=847) 156 mmHg 80-90 O2 SATURATION ARTERIAL (BEAKER) (test grwp=810) 99.1 % 96.0-97.0 HCO3 ARTERIAL (BEAKER) (test tpyu=125) 32 mmol/L 21-29 BASE EXCESS ARTERIAL (BEAKER) (test chxy=744) 7.4 mmol/L -2.0-3.0 PATIENT TEMPERATURE (BEAKER) (test usix=7048) 37.4 C FIO2 (BEAKER) (test kppp=1460) 80.0 % POCT-GLUCOSE [id number] 12:26:00 Test Item Value Reference Range Comments POC-GLUCOSE METER (BEAKER) 147 mg/dL 70-110 TESTED AT [facility] [address] [facility] (test sxoj=9275) [facility] [address] URINE [id number] 11:56:00 Test Item Value Reference Range Comments CULTURE (BEAKER) (test nvzx=2061) No growth POCT-GLUCOSE [id number] 11:11:00 Test Item Value Reference Range Comments POC-GLUCOSE METER (BEAKER) 172 mg/dL 70-110 TESTED AT [address] (test kpfx=9580) [place] [id number] POCT-GLUCOSE [id number] 09:54:00 Test Item Value Reference Range Comments POC-GLUCOSE METER (BEAKER) 196 mg/dL 70-110 TESTED AT [address] (test ncxg=9552) [place] [address] LACTIC ACID, ARTERIAL, WHOLE [id number] 09:07:00 Test Item Value Reference Range Comments LACTATE BLOOD ARTERIAL (2) (BEAKER) (test 0.7 mmol/L 0.5-2.2 odlb=0700) Effective 08/06/2015: Units/Reference Range ChangeNew: 0.5-2.2 mmol/L Previous: 5 -20 mg/[id number] 09:06:00 Test Item Value Reference Range Comments MAGNESIUM (BEAKER) (test xali=930) 2.2 mg/dL 1.6-2.6 POCT-GLUCOSE [id number] 08:39:00 Test Item Value Reference Range Comments POC-GLUCOSE METER (BEAKER) 188 mg/dL 70-110 TESTED AT [address] (test steq=0371) [place] [address] POCT-GLUCOSE [id number] 08:37:00 Test Item Value Reference Range Comments POC-GLUCOSE METER (BEAKER) 195 mg/dL 70-110 TESTED AT [address] (test itat=8761) [place] [id number] BLOOD GAS, [id number] 06:46:00 Test Item Value Reference Range Comments PH ARTERIAL (BEAKER) (test smot=262) 7.47 7.35-7.45 PCO2 ARTERIAL (BEAKER) (test bbxc=939) 44 mmHg 35-45 PO2 ARTERIAL (BEAKER) (test dcgd=960) 57 mmHg 80-90 O2 SATURATION ARTERIAL (BEAKER) (test pzex=340) 91.1 % 96.0-97.0 HCO3 ARTERIAL (BEAKER) (test nzus=236) 32 mmol/L 21-29 BASE EXCESS ARTERIAL (BEAKER) (test zxxw=110) 7.1 mmol/L -2.0-3.0 PATIENT TEMPERATURE (BEAKER) (test lfnt=6168) 37.0 C [id number] 06:14:00 Test Item Value Reference Range Comments RPR SCREEN (BEAKER) (test boep=380) Nonreactive Nonreactive CALCIUM, [id number] 05:52:00 Test Item Value Reference Range Comments CALCIUM IONIZED (BEAKER) (test saco=329) 1.13 mmol/L 1.12-1.27 PH, BLOOD (BEAKER) (test kfpl=8293) 7.46 [id number] 05:42:00 Test Item Value Reference Range Comments PHOSPHORUS (BEAKER) (test ngvx=996) 2.2 mg/dL 2.3-4.7 [id number] 05:42:00 Test Item Value Reference Range Comments MAGNESIUM (BEAKER) (test eckc=713) 2.1 mg/dL 1.6-2.6 HEPATIC FUNCTION [id number] 05:42:00 Test Item Value Reference Range Comments TOTAL PROTEIN (BEAKER) (test krxp=248) 6.2 gm/dL 6.0-8.3 ALBUMIN (BEAKER) (test ebey=5087) 3.1 g/dL 3.5-5.0 BILIRUBIN TOTAL (BEAKER) (test ntuv=253) 1.4 mg/dL 0.2-1.2 BILIRUBIN DIRECT (BEAKER) (test rotn=479) 0.7 mg/dL 0.1-0.5 ALKALINE PHOSPHATASE (BEAKER) (test otfi=503) 49 U/L 40-150 AST (SGOT) (BEAKER) (test edcj=830) 74 U/L 5-34 ALT (SGPT) (BEAKER) (test ogbg=706) 37 U/L 6-55 LACTATE DEHYDROGENASE (LDH)2017-07-22 05:42:00 Test Item Value Reference Range Comments LACTATE DEHYDROGENASE (BEAKER) (test ewco=129) 1339 U/L 125-220 [id number] 05:40:00 Test Item Value Reference Range Comments PHOSPHORUS (BEAKER) (test dzge=058) 2.2 mg/dL 2.3-4.7 BASIC METABOLIC [id number] 05:40:00 Test Item Value Reference Range Comments SODIUM (BEAKER) (test 144 meq/L 136-145 giku=043) POTASSIUM (BEAKER) (test 4.0 meq/L 3.5-5.1 ubeb=817) CHLORIDE (BEAKER) (test 107 meq/L 98-107 idhv=827) CO2 (BEAKER) (test 28 meq/L 22-29 fcld=566) BLOOD UREA NITROGEN 36 mg/dL 7-21 (BEAKER) (test brkf=758) CREATININE (BEAKER) (test 1.79 mg/dL 0.57-1.25 eiix=463) GLUCOSE RANDOM (BEAKER) 183 mg/dL 70-105 (test adbi=078) CALCIUM (BEAKER) (test 8.9 mg/dL 8.4-10.2 ysai=619) EGFR (BEAKER) (test 34 mL/min/1.73 sq m ESTIMATED GFR IS NOT zqtr=6532) ACCURATE CREATININE CLEARANCE IN PREDICTING GLOMERULAR FILTRATION RATE. ESTIMATED GFR IS NOT APPLICABLE FOR DIALYSIS PATIENTS. OXYGEN SATURATION, [id number] 05:29:00 Test Item Value Reference Range Comments O2 SATURATION (MEASURED) (BEAKER) (test xoni=5940) 54.7 % [id number] 05:29:00 Test Item Value Reference Range Comments PARTIAL THROMBOPLASTIN TIME (BEAKER) (test 70.7 seconds 22.5-36.0 dldt=278) CBC W/PLT COUNT & AUTO [id number] 05:24:00 Test Item Value Reference Range Comments WHITE BLOOD CELL COUNT (BEAKER) (test gkeq=159) 13.0 K/ L 3.5-10.5 RED BLOOD CELL COUNT (BEAKER) (test shbm=203) 3.04 M/ L 3.93-5.22 HEMOGLOBIN (BEAKER) (test zyxc=724) 9.0 GM/DL 11.2-15.7 HEMATOCRIT (BEAKER) (test rras=164) 29.0 % 34.1-44.9 MEAN CORPUSCULAR VOLUME (BEAKER) (test vpnc=899) 95.4 fL 79.4-94.8 MEAN CORPUSCULAR HEMOGLOBIN (BEAKER) (test 29.6 pg 25.6-32.2 jzdp=181) MEAN CORPUSCULAR HEMOGLOBIN CONC (BEAKER) (test 31.0 GM/DL 32.2-35.5 rwjg=258) RED CELL DISTRIBUTION WIDTH (BEAKER) (test 15.5 % 11.7-14.4 hgmy=936) PLATELET COUNT (BEAKER) (test bqvq=828) 132 K/CU MM 150-450 MEAN PLATELET VOLUME (BEAKER) (test fymg=452) 11.4 fL 9.4-12.3 NUCLEATED RED BLOOD CELLS (BEAKER) (test 0 /100 WBC 0-0 vuya=542) NEUTROPHILS RELATIVE PERCENT (BEAKER) (test 80 % udrq=984) LYMPHOCYTES RELATIVE PERCENT (BEAKER) (test 10 % oeuj=969) MONOCYTES RELATIVE PERCENT (BEAKER) (test 9 % askb=841) EOSINOPHILS RELATIVE PERCENT (BEAKER) (test 0 % cpgo=391) BASOPHILS RELATIVE PERCENT (BEAKER) (test 0 % gksu=959) NEUTROPHILS ABSOLUTE COUNT (BEAKER) (test 10.44 K/ L 1.56-6.13 ubbn=729) LYMPHOCYTES ABSOLUTE COUNT (BEAKER) (test 1.29 K/ L 1.18-3.74 mpyv=347) MONOCYTES ABSOLUTE COUNT (BEAKER) (test 1.12 K/ L 0.24-0.36 siys=224) EOSINOPHILS ABSOLUTE COUNT (BEAKER) (test 0.01 K/ L 0.04-0.36 kytz=530) BASOPHILS ABSOLUTE COUNT (BEAKER) (test 0.04 K/ L 0.01-0.08 azgm=131) IMMATURE GRANULOCYTES-RELATIVE PERCENT (BEAKER) 1 % 0-1 (test qbdc=1157) RAD, CHEST, 1 VIEW, NON [id number] 04:45:00Reason for exam:->respiratory insufficiencyFINAL REPORT CLINICAL INDICATION: Respiratory insufficiency Comparison: 07/21/2017 The cardiomediastinal contours are stable. The left hemidiaphragm is slightly elevated. Centralpulmonary vascular congestion and bilateral parenchymal opacities are unchanged. There is no pneumothorax. A femoral Impella device remains in place. Signed: Adelso Sorensenort Verified Date/Time:07/22/2017 04:45:12 Reading Location: [address] Reading Room POCT-GLUCOSE [id number] 03:01:00 Test Item Value Reference Range Comments POC-GLUCOSE METER (BEAKER) 115 mg/dL 70-110 TESTED AT [address] (test ynnq=3218) [facility] [address] POCT-GLUCOSE [id number] 00:14:00 Test Item Value Reference Range Comments POC-GLUCOSE METER (BEAKER) 137 mg/dL 70-110 TESTED AT [address] (test fsnq=8748) [place] [id number] 00:09:00 Test Item Value Reference Range Comments POTASSIUM (BEAKER) (test lfid=483) 3.8 meq/L 3.5-5.1 PRN - repeat glucose levels every 1 hour or as specified by insulin titration orders until glucose level is less than 450 mg/dLCheck Serum Potassium level 2 hours after oral potassium replacement completed or 30 min after intravenous potassium replacement.[id number] 00:09:00 Test Item Value Reference Range Comments MAGNESIUM (BEAKER) (test yonk=072) 2.5 mg/dL 1.6-2.6 PRN - repeat glucose levels every 1 hour or as specified by insulin titration orders until glucose level is less than 450 mg/dLCheck Serum Potassium level 2 hours after oral potassium replacement completed or 30 min after intravenous potassium replacement.[id number] 00:09:00 Test Item Value Reference Range Comments PHOSPHORUS (BEAKER) (test dcxq=285) 1.9 mg/dL 2.3-4.7 PRN - repeat glucose levels every 1 hour or as specified by insulin titration orders until glucose level is less than 450 mg/dLCheck Serum Potassium level 2 hours after oral potassium replacement completed or 30 min after intravenous potassium replacement.[id number] 00:09:00 Test Item Value Reference Range Comments GLUCOSE RANDOM (BEAKER) (test hdyq=249) 155 mg/dL 70-105 PRN - repeat glucose levels every 1 hour or as specified by insulin titration orders until glucose level is less than 450 mg/dLCheck Serum Potassium level 2 hours after oral potassium replacement completed or 30 min after intravenous potassium replacement.BASIC METABOLIC [id number] 00:09:00 Test Item Value Reference Range Comments SODIUM (BEAKER) (test 142 meq/L 136-145 raxi=164) POTASSIUM (BEAKER) (test 3.8 meq/L 3.5-5.1 efyt=047) CHLORIDE (BEAKER) (test 105 meq/L 98-107 ztet=118) CO2 (BEAKER) (test 30 meq/L 22-29 kdjg=988) BLOOD UREA NITROGEN 37 mg/dL 7-21 (BEAKER) (test vwpy=970) CREATININE (BEAKER) (test 1.80 mg/dL 0.57-1.25 butm=032) GLUCOSE RANDOM (BEAKER) 155 mg/dL 70-105 (test cmug=199) CALCIUM (BEAKER) (test 8.8 mg/dL 8.4-10.2 jjwv=764) EGFR (BEAKER) (test 34 mL/min/1.73 sq m ESTIMATED GFR IS NOT dczr=6645) ACCURATE CREATININE CLEARANCE IN PREDICTING GLOMERULAR FILTRATION RATE. ESTIMATED GFR IS NOT APPLICABLE FOR DIALYSIS PATIENTS. PRN - repeat glucose levels every 1 hour or as specified by insulin titration orders until glucose level is less than 450 mg/dLCheck Serum Potassium level 2 hours after oral potassium replacement completed or 30 min after intravenous potassium replacement.[id number] 00:06:00 Test Item Value Reference Range Comments PARTIAL THROMBOPLASTIN TIME (BEAKER) (test 62.0 seconds 22.5-36.0 vmzp=485) BLOOD GAS, [id number] 20:39:00 Test Item Value Reference Range Comments PH ARTERIAL (BEAKER) (test czzf=172) 7.45 7.35-7.45 PCO2 ARTERIAL (BEAKER) (test xsfi=643) 46 mmHg 35-45 PO2 ARTERIAL (BEAKER) (test ikeu=069) 64 mmHg 80-90 O2 SATURATION ARTERIAL (BEAKER) (test ifmg=359) 92.0 % 96.0-97.0 HCO3 ARTERIAL (BEAKER) (test dncd=670) 31 mmol/L 21-29 BASE EXCESS ARTERIAL (BEAKER) (test rwki=823) 6.7 mmol/L -2.0-3.0 PATIENT TEMPERATURE (BEAKER) (test nzht=2762) 38.1 C FIO2 (BEAKER) (test crwg=3062) 80.0 % POTASSIUM-STAT [id number] 20:39:00 Test Item Value Reference Range Comments POTASSIUM (BEAKER) (test pysi=292) 3.4 meq/L 3.6-5.5 [id number] 20:16:00 Test Item Value Reference Range Comments FERRITIN (BEAKER) (test hitc=399) 651 ng/mL 5-275 POCT-GLUCOSE [id number] 20:10:00 Test Item Value Reference Range Comments POC-GLUCOSE METER (BEAKER) 180 mg/dL 70-110 TESTED AT [facility] [address] [facility] (test qity=3535) [facility] [address] POCT-GLUCOSE [id number] 20:10:00 Test Item Value Reference Range Comments POC-GLUCOSE METER (BEAKER) 197 mg/dL 70-110 TESTED AT [facility] [address] [facility] (test gior=0609) [facility] [address] [id number] 19:54:00 Test Item Value Reference Range Comments PARTIAL THROMBOPLASTIN TIME (BEAKER) (test 62.4 seconds 22.5-36.0 hmkm=655) [id number] 19:53:00 Test Item Value Reference Range Comments MAGNESIUM (BEAKER) (test addd=671) 2.2 mg/dL 1.6-2.6 HEPATITIS A ANTIBODY, [id number] 19:25:00 Test Item Value Reference Range Comments HEPATITIS A IGG ANTIBODY (BEAKER) (test dlmd=9204) Reactive Nonreactive GLUCOSE-STAT [id number] 19:24:00 Test Item Value Reference Range Comments GLUCOSE RANDOM (BEAKER) (test yhmt=588) 174 mg/dL 70-110 HGB/HCT (H&H) - STAT [id number] 19:24:00 Test Item Value Reference Range Comments HEMOGLOBIN (BEAKER) (test fbvi=668) 10.1 g/dL 12.0-15.0 HEMATOCRIT (BEAKER) (test odef=067) 30.0 % 36.0-45.0 POTASSIUM-STAT [id number] 19:24:00 Test Item Value Reference Range Comments POTASSIUM (BEAKER) (test aprz=588) 3.4 meq/L 3.6-5.5 HEPATITIS B CORE ANTIBODY, [id number] 19:21:00 Test Item Value Reference Range Comments HEPATITIS B CORE TOTAL ANTIBODY (BEAKER) (test Nonreactive Nonreactive unel=793) HEPATITIS PANEL, [id number] 19:21:00 Test Item Value Reference Range Comments HEPATITIS A IGM ANTIBODY (BEAKER) (test Nonreactive Nonreactive rryd=006) HEPATITIS B CORE IGM ANTIBODY (BEAKER) (test Nonreactive Nonreactive dmtx=362) HEPATITIS C ANTIBODY (BEAKER) (test uost=349) Nonreactive Nonreactive HEPATITIS B SURFACE ANTIGEN (2) (BEAKER) (test Nonreactive Nonreactive sddl=8184) HIV-1 ANTIGEN WITH HIV-1/2 [id number] 19:21:00 Test Item Value Reference Range Comments HIV-1 ANTIGEN WITH HIV 1\T\2 ANTIBODY (2) Nonreactive Nonreactive (BEAKER) (test thnj=4181) BASIC METABOLIC [id number] 18:05:00 Test Item Value Reference Range Comments SODIUM (BEAKER) (test 141 meq/L 136-145 tsdn=990) POTASSIUM (BEAKER) (test 4.0 meq/L 3.5-5.1 xfuq=641) CHLORIDE (BEAKER) (test 104 meq/L 98-107 jvbn=520) CO2 (BEAKER) (test 26 meq/L 22-29 dawg=809) BLOOD UREA NITROGEN 41 mg/dL 7-21 (BEAKER) (test wmcq=053) CREATININE (BEAKER) (test 2.07 mg/dL 0.57-1.25 peak=476) GLUCOSE RANDOM (BEAKER) 242 mg/dL 70-105 (test qnok=052) CALCIUM (BEAKER) (test 8.9 mg/dL 8.4-10.2 qupf=440) EGFR (BEAKER) (test 29 mL/min/1.73 sq m ESTIMATED GFR IS NOT vcas=9833) ACCURATE CREATININE CLEARANCE IN PREDICTING GLOMERULAR FILTRATION RATE. ESTIMATED GFR IS NOT APPLICABLE FOR DIALYSIS PATIENTS. Check Serum Potassium level 2 hours after oral potassium replacement completed or 30 min after intravenous potassium replacement.[id number] 18:02:00 Test Item Value Reference Range Comments POTASSIUM (BEAKER) (test rjzl=784) 4.0 meq/L 3.5-5.1 Check Serum Potassium level 2 hours after oral potassium replacement completed or 30 min after intravenous potassium replacement.[id number] 18:02:00 Test Item Value Reference Range Comments MAGNESIUM (BEAKER) (test gckg=564) 2.2 mg/dL 1.6-2.6 Check Serum Potassium level 2 hours after oral potassium replacement completed or 30 min after intravenous potassium replacement.[id number] 18:02:00 Test Item Value Reference Range Comments PHOSPHORUS (BEAKER) (test tbnc=233) 2.1 mg/dL 2.3-4.7 Check Serum Potassium level 2 hours after oral potassium replacement completed or 30 min after intravenous potassium replacement.POCT-GLUCOSE [id number] 17:31:00 Test Item Value Reference Range Comments POC-GLUCOSE METER (BEAKER) 253 mg/dL 70-110 TESTED AT [address] (test ispd=0220) [place] [address] VITAMIN D, [id number] 17:31:00 Test Item Value Reference Range Comments VITAMIN D 25-OH (BEAKER) (test rumm=1868) 5.8 ng/mL 6.6-49.9 Effective 01/12/2017: Reference Range ChangeNew: 6.6-49.9 ng/mL Previous: 13.0 -47.8 ng/mLRecommended Vitamin D Target Range: 30.0-40.0 ng/mLPOCT-GLUCOSE [id number] 17:31:00 Test Item Value Reference Range Comments POC-GLUCOSE METER (BEAKER) 269 mg/dL 70-110 TESTED AT [address] (test djfy=5159) [place] [address] [id number] 17:09:00 Test Item Value Reference Range Comments TRANSFERRIN (BEAKER) (test prpw=878) 166 mg/dL 174-382 [id number] 17:09:00 Test Item Value Reference Range Comments PREALBUMIN (BEAKER) (test gitp=428) 14 mg/dL 14-45 IRON, [id number] 17:09:00 Test Item Value Reference Range Comments IRON (BEAKER) (test duah=738) 57 ug/dL 40-160 TROPONIN [id number] 16:59:00 Test Item Value Reference Range Comments TROPONIN I (BEAKER) (test hnec=536) 45.70 ng/mL 0.00-0.03 Troponin I (TnI) levels [...] failure, acidosis, acute neurological disease, and persistent tachyarrhythmia.[id number] 16:49:00 Test Item Value Reference Range Comments CREATININE (BEAKER) (test 2.17 mg/dL 0.57-1.25 eczy=353) EGFR (BEAKER) (test 27 mL/min/1.73 sq m ESTIMATED GFR IS NOT xoqa=5174) ACCURATE CREATININE CLEARANCE IN PREDICTING GLOMERULAR FILTRATION RATE. ESTIMATED GFR IS NOT APPLICABLE FOR DIALYSIS PATIENTS. URIC [id number] 16:48:00 Test Item Value Reference Range Comments URIC ACID (BEAKER) (test usad=782) 8.2 mg/dL 2.6-7.2 LIPID [id number] 16:48:00 Test Item Value Reference Range Comments TRIGLYCERIDES (BEAKER) (test ayvb=208) 122 mg/dL CHOLESTEROL (BEAKER) (test hbsc=251) 204 mg/dL HDL CHOLESTEROL (BEAKER) (test nhip=929) 85 mg/dL LDL CHOLESTEROL CALCULATED (BEAKER) (test 95 mg/dL kper=772) Triglyceride Reference Range: Low Risk <150 Borderline 150- 199 High Risk 200-499 Very High Risk >=500Cholesterol Reference Range: Low Risk <200 Borderline 200-239 High Risk > 240HDL Cholesterol Reference Range: Low Risk >=60 High Risk <40LDL Cholesterol Reference Range: Optimal <100 Near Optimal 100-129 Borderline 130-159 High 160-189 Very High >=[id number] 16:48:00 Test Item Value Reference Range Comments AMYLASE (BEAKER) (test epey=585) 228 U/L 25-125 GAMMA GLUTAMYL TRANSFERASE (GGT)2017-07-21 16:48:00 Test Item Value Reference Range Comments GAMMA GLUTAMYL TRANSFERASE (BEAKER) (test gagl=996) 52 U/L 9-64 RETICULOCYTE [id number] 16:39:00 Test Item Value Reference Range Comments RETICULOCYTE COUNT PCT (BEAKER) (test zziv=659) 3.8 % 0.5-1.7 TROPONIN [id number] 13:49:00 Test Item Value Reference Range Comments TROPONIN I (BEAKER) (test yzog=584) 43.19 ng/mL 0.00-0.03 Troponin I (TnI) levels [...] acute neurological disease, and persistent tachyarrhythmia.BASIC METABOLIC [id number] 12:22:00 Test Item Value Reference Range Comments SODIUM (BEAKER) (test 141 meq/L 136-145 tcfx=900) POTASSIUM (BEAKER) (test 3.9 meq/L 3.5-5.1 ojqq=498) CHLORIDE (BEAKER) (test 102 meq/L 98-107 gfyu=179) CO2 (BEAKER) (test 28 meq/L 22-29 pqgl=640) BLOOD UREA NITROGEN 40 mg/dL 7-21 (BEAKER) (test ubgb=685) CREATININE (BEAKER) (test 2.20 mg/dL 0.57-1.25 potp=198) GLUCOSE RANDOM (BEAKER) 238 mg/dL 70-105 (test bmmb=033) CALCIUM (BEAKER) (test 8.9 mg/dL 8.4-10.2 lxro=314) EGFR (BEAKER) (test 27 mL/min/1.73 sq m ESTIMATED GFR IS NOT vtbo=7980) ACCURATE CREATININE CLEARANCE IN PREDICTING GLOMERULAR FILTRATION RATE. ESTIMATED GFR IS NOT APPLICABLE FOR DIALYSIS PATIENTS. [id number] 12:17:00 Test Item Value Reference Range Comments POTASSIUM (BEAKER) (test hxmr=887) 3.9 meq/L 3.5-5.1 [id number] 12:17:00 Test Item Value Reference Range Comments MAGNESIUM (BEAKER) (test aunf=317) 2.4 mg/dL 1.6-2.6 [id number] 12:17:00 Test Item Value Reference Range Comments PHOSPHORUS (BEAKER) (test lnuk=711) 3.7 mg/dL 2.3-4.7 [id number] 12:17:00 Test Item Value Reference Range Comments GLUCOSE RANDOM (BEAKER) (test qwad=938) 238 mg/dL 70-105 [id number] 12:04:00 Test Item Value Reference Range Comments PARTIAL THROMBOPLASTIN TIME (BEAKER) (test 59.3 seconds 22.5-36.0 donh=502) SPUTUM CULTURE + GRAM [id number] 11:47:00 Test Item Value Reference Range Comments CULTURE (BEAKER) (test <1+ Normal respiratory pascual shge=3711) present GRAM STAIN RESULT (BEAKER) 1+ WBCs (test vjly=7145) GRAM STAIN RESULT (BEAKER) 0-5 epithelial cells (test zdvz=17350) GRAM STAIN RESULT (BEAKER) No organisms seen (test dnwo=62666) HEMOGLOBIN AND [id number] 11:26:00 Test Item Value Reference Range Comments HEMOGLOBIN (BEAKER) (test agzq=026) 7.9 GM/DL 11.2-15.7 HEMATOCRIT (BEAKER) (test zxqf=518) 26.5 % 34.1-44.9 BLOOD GAS, [id number] 10:43:00 Test Item Value Reference Range Comments PH ARTERIAL (BEAKER) (test sbye=465) 7.42 7.35-7.45 PCO2 ARTERIAL (BEAKER) (test ilmz=753) 44 mmHg 35-45 PO2 ARTERIAL (BEAKER) (test rgxg=816) 51 mmHg 80-90 O2 SATURATION ARTERIAL (BEAKER) (test njjo=772) 88.2 % 96.0-97.0 HCO3 ARTERIAL (BEAKER) (test zkfr=055) 28 mmol/L 21-29 BASE EXCESS ARTERIAL (BEAKER) (test vmjl=625) 3.2 mmol/L -2.0-3.0 PATIENT TEMPERATURE (BEAKER) (test mkbc=8206) 36.0 C FIO2 (BEAKER) (test prrl=9133) 80.0 % URINE [id number] 09:44:00 Test Item Value Reference Range Comments CULTURE (BEAKER) (test fyud=8591) No growth BASIC METABOLIC [id number] 06:28:00 Test Item Value Reference Range Comments SODIUM (BEAKER) (test 141 meq/L 136-145 lwib=411) POTASSIUM (BEAKER) (test 4.1 meq/L 3.5-5.1 ffzi=721) CHLORIDE (BEAKER) (test 101 meq/L 98-107 idix=846) CO2 (BEAKER) (test 29 meq/L 22-29 ixzb=778) BLOOD UREA NITROGEN 40 mg/dL 7-21 (BEAKER) (test zhar=204) CREATININE (BEAKER) (test 2.46 mg/dL 0.57-1.25 dzxo=394) GLUCOSE RANDOM (BEAKER) 236 mg/dL 70-105 (test jumc=427) CALCIUM (BEAKER) (test 8.6 mg/dL 8.4-10.2 qwum=607) EGFR (BEAKER) (test 24 mL/min/1.73 sq m ESTIMATED GFR IS NOT bmjt=1580) ACCURATE CREATININE CLEARANCE IN PREDICTING GLOMERULAR FILTRATION RATE. ESTIMATED GFR IS NOT APPLICABLE FOR DIALYSIS PATIENTS. [id number] 06:26:00 Test Item Value Reference Range Comments PHOSPHORUS (BEAKER) (test nexu=748) 4.6 mg/dL 2.3-4.7 POCT-GLUCOSE [id number] 06:05:00 Test Item Value Reference Range Comments POC-GLUCOSE METER (BEAKER) 278 mg/dL 70-110 TESTED AT [address] (test nrdh=7281) [place] [id number] POCT-GLUCOSE [id number] 06:05:00 Test Item Value Reference Range Comments POC-GLUCOSE METER (BEAKER) 231 mg/dL 70-110 TESTED AT [address] (test ipwb=5992) [place] [id number] POCT-GLUCOSE [id number] 06:05:00 Test Item Value Reference Range Comments POC-GLUCOSE METER (BEAKER) 190 mg/dL 70-110 TESTED AT [address] (test yyyn=3997) [place] [address] [id number] 05:56:00 Test Item Value Reference Range Comments PARTIAL THROMBOPLASTIN TIME (BEAKER) (test 72.5 seconds 22.5-36.0 fbnf=659) RAD, CHEST, 1 VIEW, NON [id number] 04:38:00Reason for exam:->respiratory insufficiencyFINAL REPORT CLINICAL INDICATION: Respiratory insufficiency Comparison: 07/20/2017 The cardiomediastinal contours are stable. Central pulmonary vascular prominence and bilateral parenchymal opacities are similar within variation of acquisition technique. There is no pneumothorax. A femoral Impella device is stable in position. Signed: Adelso Sorensen MDReport Verified Date/Time:07/21/2017 04:38:32 Reading Location: [address] Reading Room BASIC METABOLIC [id number] 04:06:00 Test Item Value Reference Range Comments SODIUM (BEAKER) (test 142 meq/L 136-145 tkbg=590) POTASSIUM (BEAKER) (test 3.9 meq/L 3.5-5.1 cyyr=586) CHLORIDE (BEAKER) (test 102 meq/L 98-107 jvgw=076) CO2 (BEAKER) (test 31 meq/L 22-29 ckyr=997) BLOOD UREA NITROGEN 40 mg/dL 7-21 (BEAKER) (test sjmj=861) CREATININE (BEAKER) (test 2.37 mg/dL 0.57-1.25 vyrd=420) GLUCOSE RANDOM (BEAKER) 206 mg/dL 70-105 (test udzf=164) CALCIUM (BEAKER) (test 8.5 mg/dL 8.4-10.2 wkki=430) EGFR (BEAKER) (test 25 mL/min/1.73 sq m ESTIMATED GFR IS NOT oqub=5303) ACCURATE CREATININE CLEARANCE IN PREDICTING GLOMERULAR FILTRATION RATE. ESTIMATED GFR IS NOT APPLICABLE FOR DIALYSIS PATIENTS. BLOOD GAS, [id number] 03:53:00 Test Item Value Reference Range Comments PH ARTERIAL (BEAKER) (test zsho=064) 7.36 7.35-7.45 PCO2 ARTERIAL (BEAKER) (test mitc=241) 55 mmHg 35-45 PO2 ARTERIAL (BEAKER) (test mujj=581) 94 mmHg 80-90 O2 SATURATION ARTERIAL (BEAKER) (test iuow=113) 96.0 % 96.0-97.0 HCO3 ARTERIAL (BEAKER) (test zdtx=532) 30 mmol/L 21-29 BASE EXCESS ARTERIAL (BEAKER) (test bkgt=767) 4.2 mmol/L -2.0-3.0 PATIENT TEMPERATURE (BEAKER) (test hnqa=2190) 38.8 C FIO2 (BEAKER) (test arwz=0318) 80.0 % CALCIUM, [id number] 03:51:00 Test Item Value Reference Range Comments CALCIUM IONIZED (BEAKER) (test slws=631) 1.07 mmol/L 1.12-1.27 PH, BLOOD (BEAKER) (test lpos=8784) 7.35 OXYGEN SATURATION, [id number] 03:50:00 Test Item Value Reference Range Comments O2 SATURATION (MEASURED) (BEAKER) (test zyeu=9533) 72.6 % [id number] 03:47:00 Test Item Value Reference Range Comments PHOSPHORUS (BEAKER) (test utgi=607) 4.5 mg/dL 2.3-4.7 [id number] 03:47:00 Test Item Value Reference Range Comments MAGNESIUM (BEAKER) (test ydin=309) 2.1 mg/dL 1.6-2.6 HEPATIC FUNCTION [id number] 03:47:00 Test Item Value Reference Range Comments TOTAL PROTEIN (BEAKER) (test kxhx=405) 6.1 gm/dL 6.0-8.3 ALBUMIN (BEAKER) (test xmxu=3829) 3.1 g/dL 3.5-5.0 BILIRUBIN TOTAL (BEAKER) (test kmea=127) 1.4 mg/dL 0.2-1.2 BILIRUBIN DIRECT (BEAKER) (test xaow=360) 0.6 mg/dL 0.1-0.5 ALKALINE PHOSPHATASE (BEAKER) (test bfsr=309) 45 U/L 40-150 AST (SGOT) (BEAKER) (test pgvf=642) 94 U/L 5-34 ALT (SGPT) (BEAKER) (test mdta=938) 48 U/L 6-55 LACTATE DEHYDROGENASE (LDH)2017-07-21 03:47:00 Test Item Value Reference Range Comments LACTATE DEHYDROGENASE (BEAKER) (test rxsq=175) 1470 U/L 125-220 CBC W/PLT COUNT & AUTO [id number] 03:41:00 Test Item Value Reference Range Comments WHITE BLOOD CELL COUNT (BEAKER) (test vwxx=498) 14.1 K/ L 3.5-10.5 RED BLOOD CELL COUNT (BEAKER) (test xida=601) 2.81 M/ L 3.93-5.22 HEMOGLOBIN (BEAKER) (test jnyn=768) 8.6 GM/DL 11.2-15.7 HEMATOCRIT (BEAKER) (test msro=961) 28.2 % 34.1-44.9 MEAN CORPUSCULAR VOLUME (BEAKER) (test mdza=261) 100.4 fL 79.4-94.8 MEAN CORPUSCULAR HEMOGLOBIN (BEAKER) (test 30.6 pg 25.6-32.2 ryfs=505) MEAN CORPUSCULAR HEMOGLOBIN CONC (BEAKER) (test 30.5 GM/DL 32.2-35.5 csat=257) RED CELL DISTRIBUTION WIDTH (BEAKER) (test 13.1 % 11.7-14.4 lbli=832) PLATELET COUNT (BEAKER) (test pxqs=189) 140 K/CU MM 150-450 MEAN PLATELET VOLUME (BEAKER) (test doyd=330) 11.1 fL 9.4-12.3 NUCLEATED RED BLOOD CELLS (BEAKER) (test 0 /100 WBC 0-0 wahx=141) NEUTROPHILS RELATIVE PERCENT (BEAKER) (test 86 % vowh=747) LYMPHOCYTES RELATIVE PERCENT (BEAKER) (test 6 % blio=392) MONOCYTES RELATIVE PERCENT (BEAKER) (test 8 % bqux=054) EOSINOPHILS RELATIVE PERCENT (BEAKER) (test 0 % spkc=636) BASOPHILS RELATIVE PERCENT (BEAKER) (test 0 % cloa=674) NEUTROPHILS ABSOLUTE COUNT (BEAKER) (test 12.13 K/ L 1.56-6.13 rohz=377) LYMPHOCYTES ABSOLUTE COUNT (BEAKER) (test 0.81 K/ L 1.18-3.74 lbys=927) MONOCYTES ABSOLUTE COUNT (BEAKER) (test 1.07 K/ L 0.24-0.36 omvu=982) EOSINOPHILS ABSOLUTE COUNT (BEAKER) (test 0.00 K/ L 0.04-0.36 cvpn=749) BASOPHILS ABSOLUTE COUNT (BEAKER) (test 0.02 K/ L 0.01-0.08 wznb=396) IMMATURE GRANULOCYTES-RELATIVE PERCENT (BEAKER) 1 % 0-1 (test mlrs=2541) LACTIC ACID, ARTERIAL, WHOLE [id number] 03:39:00 Test Item Value Reference Range Comments LACTATE BLOOD ARTERIAL (2) (BEAKER) (test 0.9 mmol/L 0.5-2.2 xooq=5955) Effective 08/06/2015: Units/Reference Range ChangeNew: 0.5-2.2 mmol/L Previous: 5 -20 mg/dLTROPONIN [id number] 00:12:00 Test Item Value Reference Range Comments TROPONIN I (BEAKER) (test lhgj=202) 60.74 ng/mL 0.00-0.03 Troponin I (TnI) levels [...] failure, acidosis, acute neurological disease, and persistent tachyarrhythmia.[id number] 23:42:00 Test Item Value Reference Range Comments PHOSPHORUS (BEAKER) (test rzhc=958) 4.9 mg/dL 2.3-4.7 BASIC METABOLIC [id number] 23:42:00 Test Item Value Reference Range Comments SODIUM (BEAKER) (test 141 meq/L 136-145 lrzl=203) POTASSIUM (BEAKER) (test 4.2 meq/L 3.5-5.1 gkbj=376) CHLORIDE (BEAKER) (test 102 meq/L 98-107 hzcq=551) CO2 (BEAKER) (test 29 meq/L 22-29 hzvv=465) BLOOD UREA NITROGEN 40 mg/dL 7-21 (BEAKER) (test xdtg=697) CREATININE (BEAKER) (test 2.36 mg/dL 0.57-1.25 fikd=077) GLUCOSE RANDOM (BEAKER) 200 mg/dL 70-105 (test yqjd=501) CALCIUM (BEAKER) (test 8.4 mg/dL 8.4-10.2 bsrp=939) EGFR (BEAKER) (test 25 mL/min/1.73 sq m ESTIMATED GFR IS NOT tvhv=7435) ACCURATE CREATININE CLEARANCE IN PREDICTING GLOMERULAR FILTRATION RATE. ESTIMATED GFR IS NOT APPLICABLE FOR DIALYSIS PATIENTS. [id number] 23:39:00 Test Item Value Reference Range Comments PARTIAL THROMBOPLASTIN TIME (BEAKER) (test 78.1 seconds 22.5-36.0 ilgy=247) POCT-GLUCOSE [id number] 23:28:00 Test Item Value Reference Range Comments POC-GLUCOSE METER (BEAKER) 250 mg/dL 70-110 TESTED AT [facility] [address] [facility] (test gllt=9365) [facility] [address] POCT-GLUCOSE [id number] 22:19:00 Test Item Value Reference Range Comments POC-GLUCOSE METER (BEAKER) 202 mg/dL 70-110 TESTED AT [address] (test lvcr=7348) [facility] [address] HEPATIC FUNCTION [id number] 21:45:00 Test Item Value Reference Range Comments TOTAL PROTEIN (BEAKER) (test mwjm=074) 5.9 gm/dL 6.0-8.3 ALBUMIN (BEAKER) (test lndz=9141) 3.1 g/dL 3.5-5.0 BILIRUBIN TOTAL (BEAKER) (test cmsd=136) 1.0 mg/dL 0.2-1.2 BILIRUBIN DIRECT (BEAKER) (test dwcx=454) 0.5 mg/dL 0.1-0.5 ALKALINE PHOSPHATASE (BEAKER) (test vpbw=015) 46 U/L 40-150 AST (SGOT) (BEAKER) (test yymw=201) 95 U/L 5-34 ALT (SGPT) (BEAKER) (test xgzs=376) 47 U/L 6-55 BASIC METABOLIC [id number] 21:45:00 Test Item Value Reference Range Comments SODIUM (BEAKER) (test 141 meq/L 136-145 yifq=116) POTASSIUM (BEAKER) (test 4.0 meq/L 3.5-5.1 syab=783) CHLORIDE (BEAKER) (test 103 meq/L 98-107 nmgl=268) CO2 (BEAKER) (test 27 meq/L 22-29 fuut=661) BLOOD UREA NITROGEN 40 mg/dL 7-21 (BEAKER) (test pwjb=156) CREATININE (BEAKER) (test 2.30 mg/dL 0.57-1.25 ectv=435) GLUCOSE RANDOM (BEAKER) 192 mg/dL 70-105 (test lzml=660) CALCIUM (BEAKER) (test 8.4 mg/dL 8.4-10.2 nofd=605) EGFR (BEAKER) (test 25 mL/min/1.73 sq m ESTIMATED GFR IS NOT gzmf=7750) ACCURATE CREATININE CLEARANCE IN PREDICTING GLOMERULAR FILTRATION RATE. ESTIMATED GFR IS NOT APPLICABLE FOR DIALYSIS PATIENTS. [id number] 21:38:00 Test Item Value Reference Range Comments MAGNESIUM (BEAKER) (test gkjp=030) 2.1 mg/dL 1.6-2.6 LACTIC ACID, ARTERIAL, WHOLE [id number] 21:32:00 Test Item Value Reference Range Comments LACTATE BLOOD ARTERIAL (2) (BEAKER) (test 0.6 mmol/L 0.5-2.2 mblp=2797) Effective 08/06/2015: Units/Reference Range ChangeNew: 0.5-2.2 mmol/L Previous: 5 -20 mg/dLPOCT-GLUCOSE [id number] 21:21:00 Test Item Value Reference Range Comments POC-GLUCOSE METER (BEAKER) 198 mg/dL 70-110 TESTED AT [address] (test adic=6161) [facility] [address] POCT-GLUCOSE [id number] 21:21:00 Test Item Value Reference Range Comments POC-GLUCOSE METER (BEAKER) 155 mg/dL 70-110 TESTED AT [address] (test wuxv=6382) [facility] [address] POCT-GLUCOSE [id number] 21:21:00 Test Item Value Reference Range Comments POC-GLUCOSE METER (BEAKER) 67 mg/dL 70-110 TESTED AT [address] (test phom=0067) [facility] [address] BLOOD GAS, [id number] 21:16:00 Test Item Value Reference Range Comments PH ARTERIAL (BEAKER) (test iuxj=145) 7.34 7.35-7.45 PCO2 ARTERIAL (BEAKER) (test ddji=253) 56 mmHg 35-45 PO2 ARTERIAL (BEAKER) (test sdef=536) 107 mmHg 80-90 O2 SATURATION ARTERIAL (BEAKER) (test mtar=967) 97.3 % 96.0-97.0 HCO3 ARTERIAL (BEAKER) (test itsy=130) 29 mmol/L 21-29 BASE EXCESS ARTERIAL (BEAKER) (test gkty=351) 2.7 mmol/L -2.0-3.0 PATIENT TEMPERATURE (BEAKER) (test uuid=5847) 37.8 C FIO2 (BEAKER) (test qggv=9906) 100.0 % GLUCOSE-STAT [id number] 21:16:00 Test Item Value Reference Range Comments GLUCOSE RANDOM (BEAKER) (test iylw=144) 188 mg/dL 70-110 HGB/HCT (H&H) - STAT [id number] 21:16:00 Test Item Value Reference Range Comments HEMOGLOBIN (BEAKER) (test ayjk=322) 9.9 g/dL 12.0-15.0 HEMATOCRIT (BEAKER) (test ozyk=247) 29.0 % 36.0-45.0 SODIUM NA-STAT [id number] 21:15:00 Test Item Value Reference Range Comments SODIUM (BEAKER) (test ivek=538) 140 meq/L 135-148 POTASSIUM-STAT [id number] 21:15:00 Test Item Value Reference Range Comments POTASSIUM (BEAKER) (test zaxv=526) 3.9 meq/L 3.6-5.5 BLOOD GAS, [id number] 19:44:00 Test Item Value Reference Range Comments PH ARTERIAL (BEAKER) (test wbnl=480) 7.34 7.35-7.45 PCO2 ARTERIAL (BEAKER) (test aiel=941) 31 mmHg 35-45 PO2 ARTERIAL (BEAKER) (test risg=033) 68 mmHg 80-90 O2 SATURATION ARTERIAL (BEAKER) (test shzs=280) 92.1 % 96.0-97.0 HCO3 ARTERIAL (BEAKER) (test vgcp=375) 16 mmol/L 21-29 BASE EXCESS ARTERIAL (BEAKER) (test biak=610) -8.7 mmol/L -2.0-3.0 PATIENT TEMPERATURE (BEAKER) (test svfp=8708) 37.7 C FIO2 (BEAKER) (test nsbk=8169) 50.0 % POCT-GLUCOSE [id number] 18:30:00 Test Item Value Reference Range Comments POC-GLUCOSE METER (BEAKER) 90 mg/dL 70-110 TESTED AT [facility] [address] [facility] (test iuaj=2554) [place] [address] TROPONIN [id number] 18:05:00 Test Item Value Reference Range Comments TROPONIN I (BEAKER) (test ttoj=260) 76.69 ng/mL 0.00-0.03 Troponin I (TnI) levels [...] acute neurological disease, and persistent tachyarrhythmia.BASIC METABOLIC [id number] 17:56:00 Test Item Value Reference Range Comments SODIUM (BEAKER) (test 143 meq/L 136-145 pcpx=497) POTASSIUM (BEAKER) (test 3.8 meq/L 3.5-5.1 nzlk=138) CHLORIDE (BEAKER) (test 104 meq/L 98-107 nvdx=869) CO2 (BEAKER) (test 29 meq/L 22-29 foay=504) BLOOD UREA NITROGEN 37 mg/dL 7-21 (BEAKER) (test gxrg=998) CREATININE (BEAKER) (test 2.45 mg/dL 0.57-1.25 jpuh=701) GLUCOSE RANDOM (BEAKER) 107 mg/dL 70-105 (test gwyq=994) CALCIUM (BEAKER) (test 8.6 mg/dL 8.4-10.2 uiic=499) EGFR (BEAKER) (test 24 mL/min/1.73 sq m ESTIMATED GFR IS NOT zbwd=9366) ACCURATE CREATININE CLEARANCE IN PREDICTING GLOMERULAR FILTRATION RATE. ESTIMATED GFR IS NOT APPLICABLE FOR DIALYSIS PATIENTS. [id number] 17:43:00 Test Item Value Reference Range Comments PHOSPHORUS (BEAKER) (test wgxq=004) 4.8 mg/dL 2.3-4.7 [id number] 17:43:00 Test Item Value Reference Range Comments MAGNESIUM (BEAKER) (test zfth=095) 2.4 mg/dL 1.6-2.6 [id number] 17:34:00 Test Item Value Reference Range Comments PARTIAL THROMBOPLASTIN TIME (BEAKER) (test 101.4 seconds 22.5-36.0 ndvw=047) BLOOD GAS, [id number] 17:23:00 Test Item Value Reference Range Comments PH ARTERIAL (BEAKER) (test rqzr=582) 7.36 7.35-7.45 PCO2 ARTERIAL (BEAKER) (test yfit=786) 60 mmHg 35-45 PO2 ARTERIAL (BEAKER) (test uubf=027) 82 mmHg 80-90 O2 SATURATION ARTERIAL (BEAKER) (test xlos=077) 95.1 % 96.0-97.0 HCO3 ARTERIAL (BEAKER) (test loga=037) 33 mmol/L 21-29 BASE EXCESS ARTERIAL (BEAKER) (test qjzc=023) 6.0 mmol/L -2.0-3.0 PATIENT TEMPERATURE (BEAKER) (test jelt=5861) 37.4 C FIO2 (BEAKER) (test ovep=8174) 70.0 % GLUCOSE-STAT [id number] 17:20:00 Test Item Value Reference Range Comments GLUCOSE RANDOM (BEAKER) (test xqst=931) 106 mg/dL 70-110 POCT-GLUCOSE [id number] 16:32:00 Test Item Value Reference Range Comments POC-GLUCOSE METER ([facility]) 115 mg/dL 70-110 TESTED AT [address] (test lmho=6020) [place] [address] VANCOMYCIN LEVEL, [id number] 16:10:00 Test Item Value Reference Range Comments VANCOMYCIN TROUGH (AKER) (test danp=401) 17.0 ug/mL 10.0-20.0 POCT-GLUCOSE [id number] 15:32:00 Test Item Value Reference Range Comments POC-GLUCOSE METER (BEAKER) 119 mg/dL 70-110 TESTED AT [address] (test wqwm=6040) [place] [id number] TROPONIN [id number] 13:14:00 Test Item Value Reference Range Comments TROPONIN I (BEAKER) (test gxyt=437) 81.57 ng/mL 0.00-0.03 Troponin I (TnI) levels [...] acute neurological disease, and persistent tachyarrhythmia.BASIC METABOLIC [id number] 12:49:00 Test Item Value Reference Range Comments SODIUM (BEAKER) (test 140 meq/L 136-145 jjbw=081) POTASSIUM (BEAKER) (test 3.6 meq/L 3.5-5.1 Specimen slightly lali=082) hemolyzed CHLORIDE (BEAKER) (test 104 meq/L 98-107 tzge=092) CO2 (BEAKER) (test 27 meq/L 22-29 czut=317) BLOOD UREA NITROGEN 37 mg/dL 7-21 (BEAKER) (test amwb=774) CREATININE (BEAKER) (test 2.35 mg/dL 0.57-1.25 Specimen slightly qwuo=882) hemolyzed GLUCOSE RANDOM (BEAKER) 192 mg/dL 70-105 (test znpc=072) CALCIUM (BEAKER) (test 8.1 mg/dL 8.4-10.2 ezer=549) EGFR (BEAKER) (test 25 mL/min/1.73 sq m ESTIMATED GFR IS NOT zzaw=5723) ACCURATE CREATININE CLEARANCE IN PREDICTING GLOMERULAR FILTRATION RATE. ESTIMATED GFR IS NOT APPLICABLE FOR DIALYSIS PATIENTS. [id number] 12:46:00 Test Item Value Reference Range Comments MAGNESIUM (BEAKER) (test 2.2 mg/dL 1.6-2.6 Specimen slightly hemolyzed hxnd=753) [id number] 12:46:00 Test Item Value Reference Range Comments PHOSPHORUS (BEAKER) (test 4.6 mg/dL 2.3-4.7 Specimen slightly hemolyzed zeeq=945) POCT-GLUCOSE [id number] 12:16:00 Test Item Value Reference Range Comments POC-GLUCOSE METER (BEAKER) 210 mg/dL 70-110 TESTED AT [address] (test uuxl=7399) [place] [address] POCT-GLUCOSE [id number] 12:16:00 Test Item Value Reference Range Comments POC-GLUCOSE METER (BEAKER) 247 mg/dL 70-110 TESTED AT [address] (test kbxv=7307) [place] [address] POCT-GLUCOSE [id number] 12:16:00 Test Item Value Reference Range Comments POC-GLUCOSE METER (BEAKER) 174 mg/dL 70-110 TESTED AT [address] (test uzvx=0655) [place] [address] BLOOD GAS, [id number] 12:14:00 Test Item Value Reference Range Comments PH ARTERIAL (BEAKER) (test taqj=485) 7.36 7.35-7.45 PCO2 ARTERIAL (BEAKER) (test cibn=555) 56 mmHg 35-45 PO2 ARTERIAL (BEAKER) (test hplo=342) 65 mmHg 80-90 O2 SATURATION ARTERIAL (BEAKER) (test nydu=343) 90.4 % 96.0-97.0 HCO3 ARTERIAL (BEAKER) (test isyp=227) 31 mmol/L 21-29 BASE EXCESS ARTERIAL (BEAKER) (test kdpj=191) 4.8 mmol/L -2.0-3.0 PATIENT TEMPERATURE (BEAKER) (test iigx=4899) 38.0 C FIO2 (BEAKER) (test nnmw=2486) 60.0 % [id number] 10:58:00 Test Item Value Reference Range Comments PARTIAL THROMBOPLASTIN TIME (BEAKER) (test 99.0 seconds 22.5-36.0 bzbe=127) RAD, CHEST, 1 VIEW, NON [id number] 08:30:00Reason for exam:->r/o pleural effusionShould this be [...] No pneumothorax is seen. Signed: Yoshi Martinez [facility] Verified Date/Time: 07/20/2017 08:30:52 Reading Location: [facility] ReadingRoom BLOOD GAS, [id number] 06 :37:00 Test Item Value Reference Range Comments PH ARTERIAL (BEAKER) (test anfe=470) 7.38 7.35-7.45 PCO2 ARTERIAL (BEAKER) (test oaqf=225) 50 mmHg 35-45 PO2 ARTERIAL (BEAKER) (test ljlk=541) 97 mmHg 80-90 O2 SATURATION ARTERIAL (BEAKER) (test dmig=003) 96.9 % 96.0-97.0 HCO3 ARTERIAL (BEAKER) (test brrd=281) 28 mmol/L 21-29 BASE EXCESS ARTERIAL (BEAKER) (test ohbb=655) 2.7 mmol/L -2.0-3.0 PATIENT TEMPERATURE (BEAKER) (test fxer=2813) 37.8 C FIO2 (BEAKER) (test ugty=0602) 40.0 % POCT-GLUCOSE [id number] 06:15:00 Test Item Value Reference Range Comments POC-GLUCOSE METER (BEAKER) 114 mg/dL 70-110 TESTED AT [address] (test hars=3242) [facility] [address] POCT-GLUCOSE [id number] 06:15:00 Test Item Value Reference Range Comments POC-GLUCOSE METER (BEAKER) 140 mg/dL 70-110 TESTED AT [address] (test igec=3139) [facility] [address] POCT-GLUCOSE [id number] 05:23:00 Test Item Value Reference Range Comments POC-GLUCOSE METER (BEAKER) 77 mg/dL 70-110 TESTED AT [address] (test adsz=3412) [facility] [address] CALCIUM, [id number] 04:34:00 Test Item Value Reference Range Comments CALCIUM IONIZED (BEAKER) (test iftz=742) 1.14 mmol/L 1.12-1.27 PH, BLOOD (BEAKER) (test lrtf=8224) 7.34 BLOOD GAS, [id number] 04:32:00 Test Item Value Reference Range Comments PH ARTERIAL (BEAKER) (test mnvn=160) 7.32 7.35-7.45 PCO2 ARTERIAL (BEAKER) (test sraf=186) 60 mmHg 35-45 PO2 ARTERIAL (BEAKER) (test qpko=133) 92 mmHg 80-90 O2 SATURATION ARTERIAL (BEAKER) (test raqf=610) 95.9 % 96.0-97.0 HCO3 ARTERIAL (BEAKER) (test ukho=022) 30 mmol/L 21-29 BASE EXCESS ARTERIAL (BEAKER) (test iuvd=926) 3.2 mmol/L -2.0-3.0 PATIENT TEMPERATURE (BEAKER) (test xole=5083) 37.8 C FIO2 (BEAKER) (test cehk=9212) 40.0 % COMPREHENSIVE METABOLIC [id number] 04:24:00 Test Item Value Reference Range Comments TOTAL PROTEIN (BEAKER) 6.5 gm/dL 6.0-8.3 (test trvx=863) ALBUMIN (BEAKER) (test 3.4 g/dL 3.5-5.0 nhdi=1687) ALKALINE PHOSPHATASE 47 U/L 40-150 (BEAKER) (test vwdx=232) BILIRUBIN TOTAL (BEAKER) 0.8 mg/dL 0.2-1.2 (test scfl=055) SODIUM (BEAKER) (test 142 meq/L 136-145 goln=364) POTASSIUM (BEAKER) (test 3.7 meq/L 3.5-5.1 onxy=535) CHLORIDE (BEAKER) (test 103 meq/L 98-107 hhcf=687) CO2 (BEAKER) (test 29 meq/L 22-29 ufkk=370) BLOOD UREA NITROGEN 34 mg/dL 7-21 (BEAKER) (test bgec=871) CREATININE (BEAKER) (test 2.44 mg/dL 0.57-1.25 vshb=409) GLUCOSE RANDOM (BEAKER) 128 mg/dL 70-105 (test yzfi=972) CALCIUM (BEAKER) (test 8.7 mg/dL 8.4-10.2 jxwd=000) AST (SGOT) (BEAKER) (test 158 U/L 5-34 zzgu=180) ALT (SGPT) (BEAKER) (test 63 U/L 6-55 hlql=014) EGFR (BEAKER) (test 24 mL/min/1.73 sq m ESTIMATED GFR IS NOT wvoh=7041) ACCURATE CREATININE CLEARANCE IN PREDICTING GLOMERULAR FILTRATION RATE. ESTIMATED GFR IS NOT APPLICABLE FOR DIALYSIS PATIENTS. BASIC METABOLIC [id number] 04:24:00 Test Item Value Reference Range Comments SODIUM (BEAKER) (test 142 meq/L 136-145 ytig=265) POTASSIUM (BEAKER) (test 3.7 meq/L 3.5-5.1 uvxl=540) CHLORIDE (BEAKER) (test 103 meq/L 98-107 zumq=407) CO2 (BEAKER) (test 29 meq/L 22-29 jyll=046) BLOOD UREA NITROGEN 34 mg/dL 7-21 (BEAKER) (test enju=534) CREATININE (BEAKER) (test 2.44 mg/dL 0.57-1.25 rmsg=656) GLUCOSE RANDOM (BEAKER) 128 mg/dL 70-105 (test dypj=813) CALCIUM (BEAKER) (test 8.7 mg/dL 8.4-10.2 xwzn=223) EGFR (BEAKER) (test 24 mL/min/1.73 sq m ESTIMATED GFR IS NOT fils=6639) ACCURATE CREATININE CLEARANCE IN PREDICTING GLOMERULAR FILTRATION RATE. ESTIMATED GFR IS NOT APPLICABLE FOR DIALYSIS PATIENTS. [id number] 04:22:00 Test Item Value Reference Range Comments PHOSPHORUS (BEAKER) (test lkap=828) 5.2 mg/dL 2.3-4.7 [id number] 04:22:00 Test Item Value Reference Range Comments MAGNESIUM (BEAKER) (test etfy=158) 2.4 mg/dL 1.6-2.6 HEPATIC FUNCTION [id number] 04:22:00 Test Item Value Reference Range Comments TOTAL PROTEIN (BEAKER) (test nwfl=164) 6.5 gm/dL 6.0-8.3 ALBUMIN (BEAKER) (test jhib=1335) 3.4 g/dL 3.5-5.0 BILIRUBIN TOTAL (BEAKER) (test wqvi=324) 0.8 mg/dL 0.2-1.2 BILIRUBIN DIRECT (BEAKER) (test lziz=194) 0.4 mg/dL 0.1-0.5 ALKALINE PHOSPHATASE (BEAKER) (test cvej=208) 47 U/L 40-150 AST (SGOT) (BEAKER) (test llld=693) 158 U/L 5-34 ALT (SGPT) (BEAKER) (test nbgr=819) 63 U/L 6-55 [id number] 04:12:00 Test Item Value Reference Range Comments PARTIAL THROMBOPLASTIN TIME (BEAKER) (test 36.8 seconds 22.5-36.0 bvyg=897) Prior to initiating heparinPOCT-GLUCOSE [id number] 04:05:00 Test Item Value Reference Range Comments POC-GLUCOSE METER (BEAKER) 134 mg/dL 70-110 TESTED AT [address] (test gdcb=3315) [facility] [address] POCT-GLUCOSE [id number] 04:05:00 Test Item Value Reference Range Comments POC-GLUCOSE METER (BEAKER) 122 mg/dL 70-110 TESTED AT [facility] [address] [facility] (test rzxz=6378) [facility] [address] POCT-GLUCOSE [id number] 04:05:00 Test Item Value Reference Range Comments POC-GLUCOSE METER (BEAKER) 201 mg/dL 70-110 TESTED AT [place] [id number] [facility] (test aoik=4039) [facility] [address] CBC W/PLT COUNT & AUTO [id number] 04:02:00 Test Item Value Reference Range Comments WHITE BLOOD CELL COUNT (BEAKER) (test lrxz=043) 13.6 K/ L 3.5-10.5 RED BLOOD CELL COUNT (BEAKER) (test pees=447) 3.18 M/ L 3.93-5.22 HEMOGLOBIN (BEAKER) (test tubd=727) 9.7 GM/DL 11.2-15.7 HEMATOCRIT (BEAKER) (test arbg=216) 31.0 % 34.1-44.9 MEAN CORPUSCULAR VOLUME (BEAKER) (test ujyo=919) 97.5 fL 79.4-94.8 MEAN CORPUSCULAR HEMOGLOBIN (BEAKER) (test 30.5 pg 25.6-32.2 jazi=063) MEAN CORPUSCULAR HEMOGLOBIN CONC (BEAKER) (test 31.3 GM/DL 32.2-35.5 reqn=441) RED CELL DISTRIBUTION WIDTH (BEAKER) (test 13.3 % 11.7-14.4 nvhg=734) PLATELET COUNT (BEAKER) (test iufp=206) 167 K/CU MM 150-450 MEAN PLATELET VOLUME (BEAKER) (test suah=976) 11.0 fL 9.4-12.3 NUCLEATED RED BLOOD CELLS (BEAKER) (test 0 /100 WBC 0-0 hrqo=262) NEUTROPHILS RELATIVE PERCENT (BEAKER) (test 85 % mnox=647) LYMPHOCYTES RELATIVE PERCENT (BEAKER) (test 7 % eojz=755) MONOCYTES RELATIVE PERCENT (BEAKER) (test 7 % yqoi=632) EOSINOPHILS RELATIVE PERCENT (BEAKER) (test 0 % cmvx=913) BASOPHILS RELATIVE PERCENT (BEAKER) (test 0 % xhtx=882) NEUTROPHILS ABSOLUTE COUNT (BEAKER) (test 11.61 K/ L 1.56-6.13 xqfk=178) LYMPHOCYTES ABSOLUTE COUNT (BEAKER) (test 0.98 K/ L 1.18-3.74 tdrr=027) MONOCYTES ABSOLUTE COUNT (BEAKER) (test 0.92 K/ L 0.24-0.36 tiwn=600) EOSINOPHILS ABSOLUTE COUNT (BEAKER) (test 0.00 K/ L 0.04-0.36 pzko=638) BASOPHILS ABSOLUTE COUNT (BEAKER) (test 0.02 K/ L 0.01-0.08 jymf=959) IMMATURE GRANULOCYTES-RELATIVE PERCENT (BEAKER) 1 % 0-1 (test yoer=4776) [id number] 02:01:00 Test Item Value Reference Range Comments PARTIAL THROMBOPLASTIN TIME (BEAKER) (test 32.5 seconds 22.5-36.0 tvsi=150) BLOOD GAS, [id number] 01:09:00 Test Item Value Reference Range Comments PH ARTERIAL (BEAKER) (test babv=684) 7.35 7.35-7.45 PCO2 ARTERIAL (BEAKER) (test gffr=123) 50 mmHg 35-45 PO2 ARTERIAL (BEAKER) (test tmvw=498) 86 mmHg 80-90 O2 SATURATION ARTERIAL (BEAKER) (test crkm=628) 95.3 % 96.0-97.0 HCO3 ARTERIAL (BEAKER) (test dtva=775) 27 mmol/L 21-29 BASE EXCESS ARTERIAL (BEAKER) (test qnfz=908) 1.0 mmol/L -2.0-3.0 PATIENT TEMPERATURE (BEAKER) (test wdwe=4877) 38.2 C FIO2 (BEAKER) (test uisj=6489) 40.0 % POCT-GLUCOSE [id number] 01:04:00 Test Item Value Reference Range Comments POC-GLUCOSE METER (BEAKER) 199 mg/dL 70-110 TESTED AT [facility] [address] [facility] (test zgjn=9086) [facility] [address] [id number] 00:14:00 Test Item Value Reference Range Comments MAGNESIUM (BEAKER) (test 2.3 mg/dL 1.6-2.6 Specimen slightly hemolyzed qbxd=850) [id number] 00:14:00 Test Item Value Reference Range Comments POTASSIUM (BEAKER) (test 3.8 meq/L 3.5-5.1 Specimen slightly hemolyzed gnqq=254) CALCIUM, [id number] 00:11:00 Test Item Value Reference Range Comments CALCIUM IONIZED (BEAKER) (test wibg=809) 1.06 mmol/L 1.12-1.27 PH, BLOOD (BEAKER) (test juea=4778) 7.35 BLOOD GAS, [id number] 00:11:00 Test Item Value Reference Range Comments PH ARTERIAL (BEAKER) (test jmup=473) 7.33 7.35-7.45 PCO2 ARTERIAL (BEAKER) (test mqyc=994) 53 mmHg 35-45 PO2 ARTERIAL (BEAKER) (test twse=751) 58 mmHg 80-90 O2 SATURATION ARTERIAL (BEAKER) (test adqq=841) 86.1 % 96.0-97.0 HCO3 ARTERIAL (BEAKER) (test sejo=483) 27 mmol/L 21-29 BASE EXCESS ARTERIAL (BEAKER) (test vcju=668) 0.9 mmol/L -2.0-3.0 PATIENT TEMPERATURE (BEAKER) (test eygo=2573) 38.0 C FIO2 (BEAKER) (test xvum=0689) 40.0 % Post extubation ABGPOCT-GLUCOSE [id number] 23:58:00 Test Item Value Reference Range Comments POC-GLUCOSE METER (BEAKER) 202 mg/dL 70-110 TESTED AT [address] (test sqfn=9562) [place] [id number] POCT-GLUCOSE [id number] 23:58:00 Test Item Value Reference Range Comments POC-GLUCOSE METER (BEAKER) 86 mg/dL 70-110 TESTED AT [address] (test rjlb=7436) [facility] [address] BASIC METABOLIC [id number] 22:18:00 Test Item Value Reference Range Comments SODIUM (BEAKER) (test 141 meq/L 136-145 gdsv=274) POTASSIUM (BEAKER) (test 3.6 meq/L 3.5-5.1 Specimen slightly povg=432) hemolyzed CHLORIDE (BEAKER) (test 105 meq/L 98-107 shqc=830) CO2 (BEAKER) (test 26 meq/L 22-29 luxs=231) BLOOD UREA NITROGEN 31 mg/dL 7-21 (BEAKER) (test vnjf=930) CREATININE (BEAKER) (test 2.09 mg/dL 0.57-1.25 Specimen slightly vgpa=086) hemolyzed GLUCOSE RANDOM (BEAKER) 81 mg/dL 70-105 (test veaa=107) CALCIUM (BEAKER) (test 8.3 mg/dL 8.4-10.2 nqre=744) EGFR (BEAKER) (test 28 mL/min/1.73 sq m ESTIMATED GFR IS NOT jyfh=2935) ACCURATE CREATININE CLEARANCE IN PREDICTING GLOMERULAR FILTRATION RATE. ESTIMATED GFR IS NOT APPLICABLE FOR DIALYSIS PATIENTS. [id number] 22:17:00 Test Item Value Reference Range Comments PHOSPHORUS (BEAKER) (test 5.1 mg/dL 2.3-4.7 Specimen slightly hemolyzed iqwt=018) POCT-GLUCOSE [id number] 20:57:00 Test Item Value Reference Range Comments POC-GLUCOSE METER (BEAKER) 90 mg/dL 70-110 TESTED AT [address] (test lfxd=8940) [facility] [id number] BLOOD GAS, [id number] 20:52:00 Test Item Value Reference Range Comments PH ARTERIAL (BEAKER) (test shfi=942) 7.35 7.35-7.45 PCO2 ARTERIAL (BEAKER) (test bmri=738) 49 mmHg 35-45 PO2 ARTERIAL (BEAKER) (test ujhj=906) 100 mmHg 80-90 O2 SATURATION ARTERIAL (BEAKER) (test hwcd=085) 97.0 % 96.0-97.0 HCO3 ARTERIAL (BEAKER) (test dvgg=052) 26 mmol/L 21-29 BASE EXCESS ARTERIAL (BEAKER) (test lcjz=749) 0.3 mmol/L -2.0-3.0 PATIENT TEMPERATURE (BEAKER) (test rmng=8793) 37.7 C FIO2 (BEAKER) (test qfgo=4526) 40.0 % [id number] 18:57:00 Test Item Value Reference Range Comments PARTIAL THROMBOPLASTIN TIME (BEAKER) (test 70.7 seconds 22.5-36.0 ycxr=829) BLOOD GAS, [id number] 16:52:00 Test Item Value Reference Range Comments PH ARTERIAL (BEAKER) (test bfyn=629) 7.37 7.35-7.45 PCO2 ARTERIAL (BEAKER) (test jauo=105) 47 mmHg 35-45 PO2 ARTERIAL (BEAKER) (test torv=147) 117 mmHg 80-90 O2 SATURATION ARTERIAL (BEAKER) (test ivtx=143) 98.0 % 96.0-97.0 HCO3 ARTERIAL (BEAKER) (test mgfl=616) 26 mmol/L 21-29 BASE EXCESS ARTERIAL (BEAKER) (test khio=631) 0.5 mmol/L -2.0-3.0 PATIENT TEMPERATURE (BEAKER) (test sjpf=1776) 37.7 C FIO2 (BEAKER) (test oshr=6075) 60.0 % GLUCOSE-STAT [id number] 16:52:00 Test Item Value Reference Range Comments GLUCOSE RANDOM (BEAKER) (test mudi=627) 149 mg/dL 70-110 [id number] 16:22:00 Test Item Value Reference Range Comments PARTIAL THROMBOPLASTIN TIME (BEAKER) (test 197.7 seconds 22.5-36.0 kdhw=693) PROTHROMBIN [id number] 16:15:00 Test Item Value Reference Range Comments PROTIME (BEAKER) (test zncv=766) 16.4 seconds 11.7-14.7 INR (BEAKER) (test thsb=259) 1.3 <=5.9 RECOMMENDED COUMADIN/WARFARIN INR THERAPY RANGESSTANDARD DOSE: 2.0 - 3.0 Includes: PROPHYLAXIS forvenous thrombosis, systemic embolization; TREATMENT for venous thrombosis and/or pulmonary embolus.HIGH RISK: Target INR is 2.5-3.5 for patients with mechanical heart valves.[id number] 16:15:00 Test Item Value Reference Range Comments FIBRINOGEN LEVEL (BEAKER) (test mqay=929) 303 mg/dl 225-434 [id number] 16:15:00 Test Item Value Reference Range Comments MAGNESIUM (BEAKER) (test 3.0 mg/dL 1.6-2.6 Specimen moderately hemolyzed gyet=765) [id number] 16:15:00 Test Item Value Reference Range Comments PHOSPHORUS (BEAKER) (test 6.6 mg/dL 2.3-4.7 Specimen moderately hemolyzed jkxw=010) BASIC METABOLIC [id number] 16:15:00 Test Item Value Reference Range Comments SODIUM (BEAKER) (test 144 meq/L 136-145 cwda=993) POTASSIUM (BEAKER) (test 4.1 meq/L 3.5-5.1 Specimen moderately awyz=885) hemolyzed CHLORIDE (BEAKER) (test 106 meq/L 98-107 fkjb=186) CO2 (BEAKER) (test 27 meq/L 22-29 bzky=797) BLOOD UREA NITROGEN 30 mg/dL 7-21 (BEAKER) (test zddn=277) CREATININE (BEAKER) (test 1.99 mg/dL 0.57-1.25 Specimen moderately jfdx=876) hemolyzed GLUCOSE RANDOM (BEAKER) 165 mg/dL 70-105 (test imzz=233) CALCIUM (BEAKER) (test 8.6 mg/dL 8.4-10.2 glxo=250) EGFR (BEAKER) (test 30 mL/min/1.73 sq m ESTIMATED GFR IS NOT fqvd=0030) ACCURATE CREATININE CLEARANCE IN PREDICTING GLOMERULAR FILTRATION RATE. ESTIMATED GFR IS NOT APPLICABLE FOR DIALYSIS PATIENTS. CBC (HEMOGRAM ONLY)2017-07-19 16:13:00 Test Item Value Reference Range Comments WHITE BLOOD CELL COUNT (BEAKER) (test hjmm=782) 14.5 K/ L 3.5-10.5 RED BLOOD CELL COUNT (BEAKER) (test nvap=614) 3.55 M/ L 3.93-5.22 HEMOGLOBIN (BEAKER) (test smjq=988) 10.7 GM/DL 11.2-15.7 HEMATOCRIT (BEAKER) (test sgup=837) 34.9 % 34.1-44.9 MEAN CORPUSCULAR VOLUME (BEAKER) (test haea=046) 98.3 fL 79.4-94.8 MEAN CORPUSCULAR HEMOGLOBIN (BEAKER) (test 30.1 pg 25.6-32.2 fgco=640) MEAN CORPUSCULAR HEMOGLOBIN CONC (BEAKER) (test 30.7 GM/DL 32.2-35.5 mkuk=016) RED CELL DISTRIBUTION WIDTH (BEAKER) (test 13.3 % 11.7-14.4 eirl=961) PLATELET COUNT (BEAKER) (test dodf=479) 235 K/CU MM 150-450 MEAN PLATELET VOLUME (BEAKER) (test pijb=593) 11.0 fL 9.4-12.3 NUCLEATED RED BLOOD CELLS (BEAKER) (test 0 /100 WBC 0-0 zmsh=057) LACTIC ACID, ARTERIAL, WHOLE [id number] 16:12:00 Test Item Value Reference Range Comments LACTATE BLOOD ARTERIAL (2) 2.0 mmol/L 0.5-2.2 Specimen slightly hemolyzed (BEAKER) (test ltsx=8410) Effective 08/06/2015: Units/Reference Range ChangeNew: 0.5-2.2 mmol/L Previous: 5 -20 mg/dLCALCIUM, [id number] 15:54:00 Test Item Value Reference Range Comments CALCIUM IONIZED (BEAKER) (test mpdq=882) 1.14 mmol/L 1.12-1.27 PH, BLOOD (BEAKER) (test lwca=1309) 7.24 SODIUM NA-STAT [id number] 15:54:00 Test Item Value Reference Range Comments SODIUM (BEAKER) (test wlgo=048) 143 meq/L 135-148 POTASSIUM-STAT [id number] 15:54:00 Test Item Value Reference Range Comments POTASSIUM (BEAKER) (test rigw=365) 3.9 meq/L 3.6-5.5 BLOOD GAS, [id number] 15:54:00 Test Item Value Reference Range Comments PH ARTERIAL (BEAKER) (test uzri=172) 7.26 7.35-7.45 PCO2 ARTERIAL (BEAKER) (test dvjd=574) 69 mmHg 35-45 PO2 ARTERIAL (BEAKER) (test qipr=685) 74 mmHg 80-90 O2 SATURATION ARTERIAL (BEAKER) (test gpsr=861) 93.4 % 96.0-97.0 HCO3 ARTERIAL (BEAKER) (test refl=353) 31 mmol/L 21-29 BASE EXCESS ARTERIAL (BEAKER) (test xgqu=941) 2.0 mmol/L -2.0-3.0 PATIENT TEMPERATURE (BEAKER) (test jykz=4826) 35.6 C FIO2 (BEAKER) (test brbk=0657) 50.0 % GLUCOSE-STAT [id number] 15:54:00 Test Item Value Reference Range Comments GLUCOSE RANDOM (BEAKER) (test ibrn=789) 169 mg/dL 70-110 HGB/HCT (H&H) - STAT [id number] 15:54:00 Test Item Value Reference Range Comments HEMOGLOBIN (STEVAN) (test hvqu=913) 11.7 g/dL 12.0-15.0 HEMATOCRIT (STEVAN) (test lwtd=779) 34.0 % 36.0-45.0 RAD, CHEST, 1 VIEW, NON [id number] 15:49:00Reason for exam:->sp PCI/ intubatedFINAL REPORT TECHNIQUE: [...] Noeleport Verified Date/Time: 07/19/2017 15:49:37 Reading Location: [facility] RadiologyReading Room [id number] 14:13:00 Test Item Value Reference Range Comments ACTIVATED CLOTTING TIME 131 sec TESTED AT [facility] [address] [facility] ([place]) (test xxls=608) [facility] [address] TROPONIN [id number] 12:32:00 Test Item Value Reference Range Comments TROPONIN I (STEVAN) (test eahe=946) 119.79 ng/mL 0.00-0.03 Troponin I (TnI) levels [...] and persistent tachyarrhythmia.CREATINE KINASE (CK), TOTAL AND [id number] 12:26:00 Test Item Value Reference Range Comments CREATINE KINASE TOTAL (STEVAN) (test bqtv=327) 2405 U/L 29-200 CREATINE KINASE-MB (BEAKER) (test vmsl=468) 65.6 ng/mL 0.0-6.6 CREATINE KINASE-MB INDEX (BEAKER) (test xtro=976) 2.7 % CK-MB Reference Range:<6.7 Normal6.7-10.0 Borderline>10.0 AbnormalPOCT-GLUCOSE [id number] 12:20:00 Test Item Value Reference Range Comments POC-GLUCOSE METER (BEAKER) 183 mg/dL 70-110 TESTED AT [address] (test wkwv=6108) [place] [address] [id number] 12:03:00 Test Item Value Reference Range Comments MAGNESIUM (BEAKER) (test owgh=150) 2.8 mg/dL 1.6-2.6 [id number] 12:03:00 Test Item Value Reference Range Comments PHOSPHORUS (BEAKER) (test tbzx=015) 5.3 mg/dL 2.3-4.7 BASIC METABOLIC [id number] 12:03:00 Test Item Value Reference Range Comments SODIUM (BEAKER) (test 143 meq/L 136-145 nnds=051) POTASSIUM (BEAKER) (test 3.8 meq/L 3.5-5.1 qcqn=228) CHLORIDE (BEAKER) (test 106 meq/L 98-107 qryc=109) CO2 (BEAKER) (test 27 meq/L 22-29 kbjc=417) BLOOD UREA NITROGEN 29 mg/dL 7-21 (BEAKER) (test tytz=526) CREATININE (BEAKER) (test 1.92 mg/dL 0.57-1.25 nlfw=360) GLUCOSE RANDOM (BEAKER) 188 mg/dL 70-105 (test zgdc=470) CALCIUM (BEAKER) (test 8.7 mg/dL 8.4-10.2 cwzj=057) EGFR (BEAKER) (test 31 mL/min/1.73 sq m ESTIMATED GFR IS NOT hamw=4899) ACCURATE CREATININE CLEARANCE IN PREDICTING GLOMERULAR FILTRATION RATE. ESTIMATED GFR IS NOT APPLICABLE FOR DIALYSIS PATIENTS. POCT-GLUCOSE [id number] 11:19:00 Test Item Value Reference Range Comments POC-GLUCOSE METER (BEAKER) 190 mg/dL 70-110 TESTED AT [address] (test cthr=4178) [place] [address] POCT-GLUCOSE [id number] 10:12:00 Test Item Value Reference Range Comments POC-GLUCOSE METER (BEAKER) 197 mg/dL 70-110 TESTED AT [address] (test rugh=5010) [place] [address] POCT-GLUCOSE [id number] 09:21:00 Test Item Value Reference Range Comments POC-GLUCOSE METER (BEAKER) 221 mg/dL 70-110 TESTED AT [address] (test fiel=9222) [place] [address] LACTIC ACID, ARTERIAL, WHOLE [id number] 09:19:00 Test Item Value Reference Range Comments LACTATE BLOOD ARTERIAL (2) (BEAKER) (test 2.4 mmol/L 0.5-2.2 qsli=7628) Effective 08/06/2015: Units/Reference Range ChangeNew: 0.5-2.2 mmol/L Previous: 5 -20 mg/dLPROTHROMBIN TIME/[id number] 08:44:00 Test Item Value Reference Range Comments PROTIME (BEAKER) (test fkpe=799) 14.4 seconds 11.7-14.7 INR (BEAKER) (test pfcx=178) 1.1 <=5.9 RECOMMENDED COUMADIN/WARFARIN INR THERAPY RANGESSTANDARD DOSE: 2.0 - 3.0 Includes: PROPHYLAXIS forvenous thrombosis, systemic embolization; TREATMENT for venous thrombosis and/or pulmonary embolus.HIGH RISK: Target INR is 2.5-3.5 for patients with mechanical heart valves.[id number] 08:44:00 Test Item Value Reference Range Comments FIBRINOGEN LEVEL (BEAKER) (test uwcv=181) 367 mg/dl 225-434 [id number] 08:44:00 Test Item Value Reference Range Comments PARTIAL THROMBOPLASTIN TIME (BEAKER) (test 30.0 seconds 22.5-36.0 vugz=027) POCT-GLUCOSE [id number] 07:52:00 Test Item Value Reference Range Comments POC-GLUCOSE METER (BEAKER) 215 mg/dL 70-110 TESTED AT [address] (test wjkn=7822) [place] [address] CT, CHEST, WITHOUT [id number] 07:50:00KEEP PATIENT ON CT TABLE. CALL RADIOLOGIST [...] Verified Date /Time: 07/19/2017 07:50:43 Reading Location: [facility] Diagnostic Imaging Reading Room - [place] [address] Electronically signed by: LYNNETTE CASTRO MD on 07:50 AMPOCT-GLUCOSE [id number] 07:37:00 Test Item Value Reference Range Comments POC-GLUCOSE METER (BEAKER) 225 mg/dL 70-110 TESTED AT [facility] [address] (test wkhz=2465) [facility] [address] RAD, CHEST, 1 VIEW, NON [id number] 04:04:00Reason for exam:->v tach/ iabpShould this be [...] MDReport Verified Date/Time: 07/19/2017 04:04:19 Reading Location: [place] [id number] Ortho Consult Reading Room [id number] 03:59:00 Test Item Value Reference Range Comments PHOSPHORUS (BEAKER) (test lnaa=740) 4.4 mg/dL 2.3-4.7 [id number] 03:59:00 Test Item Value Reference Range Comments MAGNESIUM (BEAKER) (test asie=745) 2.5 mg/dL 1.6-2.6 BASIC METABOLIC [id number] 03:59:00 Test Item Value Reference Range Comments SODIUM (BEAKER) (test 145 meq/L 136-145 mfvw=180) POTASSIUM (BEAKER) (test 3.6 meq/L 3.5-5.1 txau=363) CHLORIDE (BEAKER) (test 106 meq/L 98-107 zvoe=845) CO2 (BEAKER) (test 25 meq/L 22-29 ggmy=092) BLOOD UREA NITROGEN 28 mg/dL 7-21 (BEAKER) (test nzva=861) CREATININE (BEAKER) (test 1.93 mg/dL 0.57-1.25 feon=802) GLUCOSE RANDOM (BEAKER) 216 mg/dL 70-105 (test ishw=260) CALCIUM (BEAKER) (test 9.0 mg/dL 8.4-10.2 dimf=349) EGFR (BEAKER) (test 31 mL/min/1.73 sq m ESTIMATED GFR IS NOT xpsr=3228) ACCURATE CREATININE CLEARANCE IN PREDICTING GLOMERULAR FILTRATION RATE. ESTIMATED GFR IS NOT APPLICABLE FOR DIALYSIS PATIENTS. B-TYPE NATRIURETIC FACTOR (BNP)2017-07-19 03:10:00 Test Item Value Reference Range Comments B-TYPE NATRIURETIC PEPTIDE (BEAKER) (test 2662 pg/mL 0-100 obad=178) HEPATIC FUNCTION [id number] 03:04:00 Test Item Value Reference Range Comments TOTAL PROTEIN (BEAKER) (test emmo=123) 6.6 gm/dL 6.0-8.3 ALBUMIN (BEAKER) (test aekw=0076) 3.5 g/dL 3.5-5.0 BILIRUBIN TOTAL (BEAKER) (test flzv=280) 0.4 mg/dL 0.2-1.2 BILIRUBIN DIRECT (BEAKER) (test wvvj=646) 0.2 mg/dL 0.1-0.5 ALKALINE PHOSPHATASE (BEAKER) (test qjpq=993) 57 U/L 40-150 AST (SGOT) (BEAKER) (test pjfa=946) 359 U/L 5-34 ALT (SGPT) (BEAKER) (test wqls=319) 99 U/L 6-55 CREATINE KINASE (CK)2017-07-19 03:04:00 Test Item Value Reference Range Comments CREATINE KINASE TOTAL (BEAKER) (test sdua=929) 2888 U/L 29-200 CBC W/PLT COUNT & AUTO [id number] 02:56:00 Test Item Value Reference Range Comments WHITE BLOOD CELL COUNT (BEAKER) (test xexy=458) 19.0 K/ L 3.5-10.5 RED BLOOD CELL COUNT (BEAKER) (test gyxb=805) 3.69 M/ L 3.93-5.22 HEMOGLOBIN (BEAKER) (test rrsp=037) 11.2 GM/DL 11.2-15.7 HEMATOCRIT (BEAKER) (test sdfd=513) 35.3 % 34.1-44.9 MEAN CORPUSCULAR VOLUME (BEAKER) (test bqgb=644) 95.7 fL 79.4-94.8 MEAN CORPUSCULAR HEMOGLOBIN (BEAKER) (test 30.4 pg 25.6-32.2 zjsc=196) MEAN CORPUSCULAR HEMOGLOBIN CONC (BEAKER) (test 31.7 GM/DL 32.2-35.5 oljp=873) RED CELL DISTRIBUTION WIDTH (BEAKER) (test 13.1 % 11.7-14.4 idub=702) PLATELET COUNT (BEAKER) (test hijp=209) 253 K/CU MM 150-450 MEAN PLATELET VOLUME (BEAKER) (test oocy=286) 10.0 fL 9.4-12.3 NUCLEATED RED BLOOD CELLS (BEAKER) (test 0 /100 WBC 0-0 gikv=262) NEUTROPHILS RELATIVE PERCENT (BEAKER) (test 86 % ecky=816) LYMPHOCYTES RELATIVE PERCENT (BEAKER) (test 6 % cmtd=539) MONOCYTES RELATIVE PERCENT (BEAKER) (test 7 % bdti=063) EOSINOPHILS RELATIVE PERCENT (BEAKER) (test 0 % jakc=972) BASOPHILS RELATIVE PERCENT (BEAKER) (test 0 % wnxi=880) NEUTROPHILS ABSOLUTE COUNT (BEAKER) (test 16.34 K/ L 1.56-6.13 zxnn=917) LYMPHOCYTES ABSOLUTE COUNT (BEAKER) (test 1.15 K/ L 1.18-3.74 rvzt=718) MONOCYTES ABSOLUTE COUNT (BEAKER) (test 1.39 K/ L 0.24-0.36 oehc=691) EOSINOPHILS ABSOLUTE COUNT (BEAKER) (test 0.00 K/ L 0.04-0.36 fpol=065) BASOPHILS ABSOLUTE COUNT (BEAKER) (test 0.02 K/ L 0.01-0.08 temp=924) IMMATURE GRANULOCYTES-RELATIVE PERCENT (BEAKER) 0 % 0-1 (test yrjw=6967) CALCIUM, [id number] 02:49:00 Test Item Value Reference Range Comments CALCIUM IONIZED (BEAKER) (test eldu=668) 1.14 mmol/L 1.12-1.27 PH, BLOOD (BEAKER) (test rneg=2385) 7.36 CBC (HEMOGRAM ONLY)2017-07-19 02:48:00 Test Item Value Reference Range Comments WHITE BLOOD CELL COUNT (BEAKER) (test wovp=553) 19.0 K/ L 3.5-10.5 RED BLOOD CELL COUNT (BEAKER) (test zxtu=241) 3.69 M/ L 3.93-5.22 HEMOGLOBIN (BEAKER) (test igjx=226) 11.2 GM/DL 11.2-15.7 HEMATOCRIT (BEAKER) (test qrty=468) 35.3 % 34.1-44.9 MEAN CORPUSCULAR VOLUME (BEAKER) (test kxyb=400) 95.7 fL 79.4-94.8 MEAN CORPUSCULAR HEMOGLOBIN (BEAKER) (test 30.4 pg 25.6-32.2 penv=897) MEAN CORPUSCULAR HEMOGLOBIN CONC (BEAKER) (test 31.7 GM/DL 32.2-35.5 swtw=806) RED CELL DISTRIBUTION WIDTH (BEAKER) (test 13.1 % 11.7-14.4 omqp=396) PLATELET COUNT (BEAKER) (test qqqs=605) 253 K/CU MM 150-450 MEAN PLATELET VOLUME (BEAKER) (test cmsj=816) 10.0 fL 9.4-12.3 NUCLEATED RED BLOOD CELLS (BEAKER) (test 0 /100 WBC 0-0 fduv=210) BLOOD GAS, [id number] 02:48:00 Test Item Value Reference Range Comments PH ARTERIAL (BEAKER) (test lytg=293) 7.35 7.35-7.45 PCO2 ARTERIAL (BEAKER) (test fgdq=839) 55 mmHg 35-45 PO2 ARTERIAL (BEAKER) (test sfik=666) 73 mmHg 80-90 O2 SATURATION ARTERIAL (BEAKER) (test vwzl=984) 93.3 % 96.0-97.0 HCO3 ARTERIAL (BEAKER) (test vegf=000) 30 mmol/L 21-29 BASE EXCESS ARTERIAL (BEAKER) (test rhuz=226) 3.1 mmol/L -2.0-3.0 PATIENT TEMPERATURE (BEAKER) (test geze=1914) 37.5 C FIO2 (BEAKER) (test chqa=7898) 40.0 % POCT-GLUCOSE [id number] 02:21:00 Test Item Value Reference Range Comments POC-GLUCOSE METER (BEAKER) 184 mg/dL 70-110 TESTED AT [facility] [address] [facility] (test erjx=5385) [facility] [address] POCT-GLUCOSE [id number] 01:15:00 Test Item Value Reference Range Comments POC-GLUCOSE METER (BEAKER) 173 mg/dL 70-110 TESTED AT [address] (test valr=2440) [facility] [address] [id number] 00:55:00 Test Item Value Reference Range Comments PHOSPHORUS (BEAKER) (test shng=122) 3.3 mg/dL 2.3-4.7 [id number] 00:55:00 Test Item Value Reference Range Comments MAGNESIUM (BEAKER) (test vcpe=343) 1.8 mg/dL 1.6-2.6 BASIC METABOLIC [id number] 00:55:00 Test Item Value Reference Range Comments SODIUM (BEAKER) (test 143 meq/L 136-145 fwsv=090) POTASSIUM (BEAKER) (test 3.9 meq/L 3.5-5.1 yecg=081) CHLORIDE (BEAKER) (test 106 meq/L 98-107 addj=090) CO2 (BEAKER) (test 27 meq/L 22-29 adbr=340) BLOOD UREA NITROGEN 27 mg/dL 7-21 (BEAKER) (test ydrd=413) CREATININE (BEAKER) (test 1.90 mg/dL 0.57-1.25 qagv=630) GLUCOSE RANDOM (BEAKER) 181 mg/dL 70-105 (test pyet=186) CALCIUM (BEAKER) (test 8.9 mg/dL 8.4-10.2 uffa=860) EGFR (BEAKER) (test 32 mL/min/1.73 sq m ESTIMATED GFR IS NOT tjiu=0224) ACCURATE CREATININE CLEARANCE IN PREDICTING GLOMERULAR FILTRATION RATE. ESTIMATED GFR IS NOT APPLICABLE FOR DIALYSIS PATIENTS. POCT-GLUCOSE [id number] 00:11:00 Test Item Value Reference Range Comments POC-GLUCOSE METER (BEAKER) 177 mg/dL 70-110 TESTED AT [address] (test dghw=5396) [facility] [address] POCT-GLUCOSE [id number] 23:25:00 Test Item Value Reference Range Comments POC-GLUCOSE METER (BEAKER) 206 mg/dL 70-110 TESTED AT [address] (test olox=2614) [facility] [address] POCT-GLUCOSE [id number] 22:19:00 Test Item Value Reference Range Comments POC-GLUCOSE METER (BEAKER) 243 mg/dL 70-110 TESTED AT [address] (test fvac=4529) [facility] [address] POCT-GLUCOSE [id number] 21:37:00 Test Item Value Reference Range Comments POC-GLUCOSE METER (BEAKER) 235 mg/dL 70-110 TESTED AT [address] (test rsuu=7749) [facility] [address] POCT-GLUCOSE [id number] 20:04:00 Test Item Value Reference Range Comments POC-GLUCOSE METER (BEAKER) 216 mg/dL 70-110 TESTED AT [address] (test hfyb=5039) [facility] [address] POCT-GLUCOSE [id number] 18:40:00 Test Item Value Reference Range Comments POC-GLUCOSE METER (BEAKER) 271 mg/dL 70-110 TESTED AT [address] (test brem=1776) [facility] [address] [id number] 18:32:00 Test Item Value Reference Range Comments MAGNESIUM (BEAKER) (test 1.9 mg/dL 1.6-2.6 Specimen slightly hemolyzed jivl=919) [id number] 18:32:00 Test Item Value Reference Range Comments PHOSPHORUS (BEAKER) (test 3.1 mg/dL 2.3-4.7 Specimen slightly hemolyzed eeki=461) BASIC METABOLIC [id number] 18:32:00 Test Item Value Reference Range Comments SODIUM (BEAKER) (test 142 meq/L 136-145 citj=880) POTASSIUM (BEAKER) (test 3.9 meq/L 3.5-5.1 Specimen slightly jhph=437) hemolyzed CHLORIDE (BEAKER) (test 107 meq/L 98-107 heqx=272) CO2 (BEAKER) (test 24 meq/L 22-29 cmcf=779) BLOOD UREA NITROGEN 22 mg/dL 7-21 (BEAKER) (test bppb=586) CREATININE (BEAKER) (test 1.55 mg/dL 0.57-1.25 Specimen slightly rdhw=711) hemolyzed GLUCOSE RANDOM (BEAKER) 242 mg/dL 70-105 (test cptx=023) CALCIUM (BEAKER) (test 8.8 mg/dL 8.4-10.2 ipkb=235) EGFR (BEAKER) (test 40 mL/min/1.73 sq m ESTIMATED GFR IS NOT yvac=3501) ACCURATE CREATININE CLEARANCE IN PREDICTING GLOMERULAR FILTRATION RATE. ESTIMATED GFR IS NOT APPLICABLE FOR DIALYSIS PATIENTS. BLOOD GAS, [id number] 18:24:00 Test Item Value Reference Range Comments PH ARTERIAL (BEAKER) (test oazf=292) 7.34 7.35-7.45 PCO2 ARTERIAL (BEAKER) (test fmlh=656) 51 mmHg 35-45 PO2 ARTERIAL (BEAKER) (test axkv=868) 57 mmHg 80-90 O2 SATURATION ARTERIAL (BEAKER) (test paiq=325) 87.5 % 96.0-97.0 HCO3 ARTERIAL (BEAKER) (test wrys=484) 27 mmol/L 21-29 BASE EXCESS ARTERIAL (BEAKER) (test fyte=371) 1.0 mmol/L -2.0-3.0 PATIENT TEMPERATURE (BEAKER) (test ojar=0791) 37.2 C FIO2 (BEAKER) (test drvz=4404) 40.0 % POCT-GLUCOSE [id number] 17:14:00 Test Item Value Reference Range Comments POC-GLUCOSE METER (BEAKER) 299 mg/dL 70-110 TESTED AT [place] [address] [address] (test umos=4360) [facility] [address] LACTIC ACID, ARTERIAL, WHOLE [id number] 16:37:00 Test Item Value Reference Range Comments LACTATE BLOOD ARTERIAL (2) 2.9 mmol/L 0.5-2.2 Specimen slightly hemolyzed (BEAKER) (test opqd=7804) Effective 08/06/2015: Units/Reference Range ChangeNew: 0.5-2.2 mmol/L Previous: 5 -20 mg/[id number] 15:45:00 Test Item Value Reference Range Comments GLUCOSE RANDOM (BEAKER) (test glgu=472) 439 mg/dL 70-105 If last glucose was less than 500, may do bedside glucose instead of serum glucose.POCT-GLUCOSE [id number] 15:21:00 Test Item Value Reference Range Comments POC-GLUCOSE METER (BEAKER) 374 mg/dL 70-110 Notified PAULA BERGER/TESTED AT [facility] (test lehi=5040) [facility] [place] [facility] [address] [id number] 15:14:00 Test Item Value Reference Range Comments POTASSIUM (BEAKER) (test qjnn=293) 4.0 meq/L 3.5-5.1 If last glucose was less than 500, may do bedside glucose instead of serum glucose.URINALYSIS W/ [id number] 15:03:00 Test Item Value Reference Range Comments COLOR (BEAKER) (test oqbl=338) Yellow CLARITY (BEAKER) (test xxuh=959) Clear SPECIFIC GRAVITY UA (BEAKER) (test vkcq=863) 1.050 1.001-1.035 PH UA (BEAKER) (test pjti=360) 5.5 5.0-8.0 PROTEIN UA (BEAKER) (test gfbv=158) 50 mg/dL Negative GLUCOSE UA (BEAKER) (test hawm=837) >1000 mg/dL Negative KETONES UA (BEAKER) (test ohkm=179) Negative Negative BILIRUBIN UA (BEAKER) (test bokm=390) Negative Negative BLOOD UA (BEAKER) (test drxw=842) Moderate Negative NITRITE UA (BEAKER) (test fjvj=101) Negative Negative LEUKOCYTE ESTERASE UA (BEAKER) (test dpsl=977) Negative Negative UROBILINOGEN UA (BEAKER) (test ewey=743) 0.2 mg/dL 0.2-1.0 RBC UA (BEAKER) (test fgso=900) 16 /HPF WBC UA (BEAKER) (test ygwp=574) 11 /HPF BACTERIA (BEAKER) (test lpum=683) Rare MUCUS (BEAKER) (test eiar=3775) Rare SQUAMOUS EPITHELIAL (BEAKER) (test auiq=546) 1 /HPF SOURCE(BEAKER) (test eddb=8392) U/S, RENAL, [id number] 14:36:00Reason for exam:->acute renal failure , hydronephrosisShould [...] MDReport Verified Date/Time: 07/18/2017 14:36:40 Reading Location: [address] Ultrasound Reading Room Electronically signed by: VIRGINIA DIAZ M.D. on 02:36 PMT4, [id number] 14:31:00 Test Item Value Reference Range Comments FREE T4 (BEAKER) (test igae=098) 1.13 ng/dL 0.70-1.48 BLOOD GAS, [id number] 14:01:00 Test Item Value Reference Range Comments PH ARTERIAL (BEAKER) (test btrk=180) 7.42 7.35-7.45 PCO2 ARTERIAL (BEAKER) (test cklq=865) 42 mmHg 35-45 PO2 ARTERIAL (BEAKER) (test vvbt=941) 66 mmHg 80-90 O2 SATURATION ARTERIAL (BEAKER) (test mkft=743) 93.5 % 96.0-97.0 HCO3 ARTERIAL (BEAKER) (test ogxx=807) 27 mmol/L 21-29 BASE EXCESS ARTERIAL (BEAKER) (test iadx=713) 2.1 mmol/L -2.0-3.0 PATIENT TEMPERATURE (BEAKER) (test vywo=6217) 36.9 C FIO2 (BEAKER) (test euel=4873) 40.0 % HEMOGLOBIN [id number] 13:57:00 Test Item Value Reference Range Comments HEMOGLOBIN A1C (BEAKER) (test lyjg=438) 9.8 % 4.3-6.1 SODIUM, RANDOM [id number] 13:49:00 Test Item Value Reference Range Comments SODIUM URINE (BEAKER) (test lfwt=984) 22 meq/L Reference Range: No NormalsTSH/FREE T4 IF [id number] 13:49:00 Test Item Value Reference Range Comments THYROID STIMULATING HORMONE (BEAKER) (test 0.27 uIU/mL 0.35-4.94 kdjh=252) POCT-GLUCOSE [id number] 13:47:00 Test Item Value Reference Range Comments POC-GLUCOSE METER (BEAKER) 398 mg/dL 70-110 TESTED AT [facility] [address] (test lcms=3891) [facility] [address] CREATININE, RANDOM [id number] 13:43:00 Test Item Value Reference Range Comments CREATININE URINE (BEAKER) (test eudc=532) 85.4 mg/dL Reference Range: No NormalsPROTEIN, RANDOM [id number] 13:43:00 Test Item Value Reference Range Comments PROTEIN, URINE (BEAKER) (test jshe=4587) 75 mg/dL 0-14 B-TYPE NATRIURETIC FACTOR (BNP)2017-07-18 13:17:00 Test Item Value Reference Range Comments B-TYPE NATRIURETIC PEPTIDE (BEAKER) (test 1847 pg/mL 0-100 axgq=825) BASIC METABOLIC [id number] 13:13:00 Test Item Value Reference Range Comments SODIUM (BEAKER) (test 138 meq/L 136-145 qsuw=325) POTASSIUM (BEAKER) (test 4.8 meq/L 3.5-5.1 cxsk=534) CHLORIDE (BEAKER) (test 101 meq/L 98-107 wkqm=144) CO2 (BEAKER) (test 26 meq/L 22-29 soak=375) BLOOD UREA NITROGEN 21 mg/dL 7-21 (BEAKER) (test wqmn=249) CREATININE (BEAKER) (test 1.62 mg/dL 0.57-1.25 adne=465) GLUCOSE RANDOM (BEAKER) 527 mg/dL 70-105 (test lcqn=421) CALCIUM (BEAKER) (test 8.9 mg/dL 8.4-10.2 dlyf=439) EGFR (BEAKER) (test 38 mL/min/1.73 sq m ESTIMATED GFR IS NOT roho=8625) ACCURATE CREATININE CLEARANCE IN PREDICTING GLOMERULAR FILTRATION RATE. ESTIMATED GFR IS NOT APPLICABLE FOR DIALYSIS PATIENTS. If last glucose was less than 500, may do bedside glucose instead of serum glucose.[id number] 13:12:00 Test Item Value Reference Range Comments MAGNESIUM (BEAKER) (test przv=043) 1.9 mg/dL 1.6-2.6 If last glucose was less than 500, may do bedside glucose instead of serum glucose.[id number] 13:12:00 Test Item Value Reference Range Comments LIPASE (BEAKER) (test bpll=279) 106 U/L 8-78 If last glucose was less than 500, may do bedside glucose instead of serum glucose.[id number] 13:11:00 Test Item Value Reference Range Comments PHOSPHORUS (BEAKER) (test ipmn=250) 3.3 mg/dL 2.3-4.7 If last glucose was less than 500, may do bedside glucose instead of serum glucose.POCT-GLUCOSE [id number] 12:49:00 Test Item Value Reference Range Comments POC-GLUCOSE METER (BEAKER) 498 mg/dL 70-110 Notified PAULA BERGER/TESTED AT [facility] (test olwh=2531) [address] [facility] [address] LACTIC ACID, VENOUS, WHOLE [id number] 12:11:00 Test Item Value Reference Range Comments LACTATE BLOOD VENOUS (2) (BEAKER) (test 3.8 mmol/L 0.5-2.2 vfyc=4582) Effective 08/06/2015: Units/Reference Range ChangeNew: 0.5-2.2 mmol/L Previous: 5 -20 mg/[id number] 12:10:00 Test Item Value Reference Range Comments PROCALCITONIN (BEAKER) (test gqsp=4190) 3.80 ng/mL <0.05 SEPSIS RISK (ng/mL)Low: 0.05-0.50Intermediate: 0.51-2.00High: & gt;=2.01CBC W/PLT COUNT & AUTO [id number] 12:10:00 Test Item Value Reference Range Comments WHITE BLOOD CELL COUNT (BEAKER) (test eehb=045) 11.2 K/ L 3.5-10.5 RED BLOOD CELL COUNT (BEAKER) (test zons=035) 3.98 M/ L 3.93-5.22 HEMOGLOBIN (BEAKER) (test zcsa=346) 12.0 GM/DL 11.2-15.7 HEMATOCRIT (BEAKER) (test wrkn=759) 38.5 % 34.1-44.9 MEAN CORPUSCULAR VOLUME (BEAKER) (test yfze=055) 96.7 fL 79.4-94.8 MEAN CORPUSCULAR HEMOGLOBIN (BEAKER) (test 30.2 pg 25.6-32.2 mmjc=502) MEAN CORPUSCULAR HEMOGLOBIN CONC (BEAKER) (test 31.2 GM/DL 32.2-35.5 fvmu=115) RED CELL DISTRIBUTION WIDTH (BEAKER) (test 13.1 % 11.7-14.4 syru=652) PLATELET COUNT (BEAKER) (test rnea=445) 222 K/CU MM 150-450 MEAN PLATELET VOLUME (BEAKER) (test efyg=115) 10.2 fL 9.4-12.3 NUCLEATED RED BLOOD CELLS (BEAKER) (test 0 /100 WBC 0-0 vsae=353) NEUTROPHILS RELATIVE PERCENT (BEAKER) (test 96 % xqvp=941) LYMPHOCYTES RELATIVE PERCENT (BEAKER) (test 2 % wahn=065) MONOCYTES RELATIVE PERCENT (BEAKER) (test 2 % mwzs=680) EOSINOPHILS RELATIVE PERCENT (BEAKER) (test 0 % hkoj=343) BASOPHILS RELATIVE PERCENT (BEAKER) (test 0 % tpdk=564) NEUTROPHILS ABSOLUTE COUNT (BEAKER) (test 10.72 K/ L 1.56-6.13 uxzx=746) LYMPHOCYTES ABSOLUTE COUNT (BEAKER) (test 0.24 K/ L 1.18-3.74 deoy=855) MONOCYTES ABSOLUTE COUNT (BEAKER) (test 0.22 K/ L 0.24-0.36 cpzn=026) EOSINOPHILS ABSOLUTE COUNT (BEAKER) (test 0.00 K/ L 0.04-0.36 pypv=543) BASOPHILS ABSOLUTE COUNT (BEAKER) (test 0.01 K/ L 0.01-0.08 sfkh=253) IMMATURE GRANULOCYTES-RELATIVE PERCENT (BEAKER) 0 % 0-1 (test ibmq=6599) BASIC METABOLIC [id number] 11:35:00 Test Item Value Reference Range Comments SODIUM (BEAKER) (test 136 meq/L 136-145 azuw=154) POTASSIUM (BEAKER) (test 4.8 meq/L 3.5-5.1 utfi=581) CHLORIDE (BEAKER) (test 99 meq/L 98-107 rndm=273) CO2 (BEAKER) (test 25 meq/L 22-29 txgg=799) BLOOD UREA NITROGEN 19 mg/dL 7-21 (BEAKER) (test zsyu=156) CREATININE (BEAKER) (test 1.61 mg/dL 0.57-1.25 onos=229) GLUCOSE RANDOM (BEAKER) 568 mg/dL 70-105 (test dxmi=649) CALCIUM (BEAKER) (test 8.9 mg/dL 8.4-10.2 npoa=997) EGFR (BEAKER) (test 38 mL/min/1.73 sq m ESTIMATED GFR IS NOT pnnp=3430) ACCURATE CREATININE CLEARANCE IN PREDICTING GLOMERULAR FILTRATION RATE. ESTIMATED GFR IS NOT APPLICABLE FOR DIALYSIS PATIENTS. BLOOD GAS, [id number] 10:57:00 Test Item Value Reference Range Comments PH ARTERIAL (BEAKER) (test mikm=537) 7.36 7.35-7.45 PCO2 ARTERIAL (BEAKER) (test xedg=634) 47 mmHg 35-45 PO2 ARTERIAL (BEAKER) (test fjve=195) 78 mmHg 80-90 O2 SATURATION ARTERIAL (BEAKER) (test hxsx=708) 95.0 % 96.0-97.0 HCO3 ARTERIAL (BEAKER) (test womj=099) 26 mmol/L 21-29 BASE EXCESS ARTERIAL (BEAKER) (test qmep=662) 0.4 mmol/L -2.0-3.0 PATIENT TEMPERATURE (BEAKER) (test rdwo=7101) 37.0 C FIO2 (BEAKER) (test gmov=5441) 100.0 % RAD, CHEST, 1 VIEW, NON [id number] 10:38:00Reason for exam:->IABP Should this be performed [...] MDReport Verified Date/Time: 07/18/2017 10:38:31 Reading Location: [facility] Radiology Reading Room CBC W/PLT COUNT & AUTO [id number] 10: 01:00 Test Item Value Reference Range Comments WHITE BLOOD CELL COUNT (BEAKER) (test caed=812) 12.8 K/ L 3.5-10.5 RED BLOOD CELL COUNT (BEAKER) (test atki=706) 3.95 M/ L 3.93-5.22 HEMOGLOBIN (BEAKER) (test ntdm=586) 11.9 GM/DL 11.2-15.7 HEMATOCRIT (BEAKER) (test yerv=596) 38.3 % 34.1-44.9 MEAN CORPUSCULAR VOLUME (BEAKER) (test hmce=912) 97.0 fL 79.4-94.8 MEAN CORPUSCULAR HEMOGLOBIN (BEAKER) (test 30.1 pg 25.6-32.2 wrgv=641) MEAN CORPUSCULAR HEMOGLOBIN CONC (BEAKER) (test 31.1 GM/DL 32.2-35.5 lkzh=574) RED CELL DISTRIBUTION WIDTH (BEAKER) (test 13.1 % 11.7-14.4 pnhg=229) PLATELET COUNT (BEAKER) (test eysl=276) 231 K/CU MM 150-450 MEAN PLATELET VOLUME (BEAKER) (test qhwj=154) 10.4 fL 9.4-12.3 NUCLEATED RED BLOOD CELLS (BEAKER) (test 0 /100 WBC 0-0 tlop=549) NEUTROPHILS RELATIVE PERCENT (BEAKER) (test 91 % sxbu=804) LYMPHOCYTES RELATIVE PERCENT (BEAKER) (test 4 % zdpx=123) MONOCYTES RELATIVE PERCENT (BEAKER) (test 4 % ynxe=916) EOSINOPHILS RELATIVE PERCENT (BEAKER) (test 0 % jhsw=495) BASOPHILS RELATIVE PERCENT (BEAKER) (test 0 % ytuw=631) NEUTROPHILS ABSOLUTE COUNT (BEAKER) (test 11.66 K/ L 1.56-6.13 qais=706) LYMPHOCYTES ABSOLUTE COUNT (BEAKER) (test 0.53 K/ L 1.18-3.74 hjbj=935) MONOCYTES ABSOLUTE COUNT (BEAKER) (test 0.49 K/ L 0.24-0.36 ireq=106) EOSINOPHILS ABSOLUTE COUNT (BEAKER) (test 0.01 K/ L 0.04-0.36 gyzg=670) BASOPHILS ABSOLUTE COUNT (BEAKER) (test 0.03 K/ L 0.01-0.08 vpob=040) IMMATURE GRANULOCYTES-RELATIVE PERCENT (BEAKER) 0 % 0-1 (test wisx=3790) COMPREHENSIVE METABOLIC [id number] 09:38:00 Test Item Value Reference Range Comments TOTAL PROTEIN (BEAKER) 6.7 gm/dL 6.0-8.3 Specimen slightly (test jjyy=409) hemolyzed ALBUMIN (BEAKER) (test 3.5 g/dL 3.5-5.0 Specimen slightly sosa=0815) hemolyzed ALKALINE PHOSPHATASE 70 U/L 40-150 (BEAKER) (test rulp=687) BILIRUBIN TOTAL (BEAKER) 0.6 mg/dL 0.2-1.2 Specimen slightly (test iagv=596) hemolyzed SODIUM (BEAKER) (test 134 meq/L 136-145 svdt=138) POTASSIUM (BEAKER) (test 4.7 meq/L 3.5-5.1 Specimen slightly hpbl=032) hemolyzed CHLORIDE (BEAKER) (test 98 meq/L 98-107 antq=990) CO2 (BEAKER) (test 25 meq/L 22-29 cuhq=279) BLOOD UREA NITROGEN 19 mg/dL 7-21 (BEAKER) (test whty=608) CREATININE (BEAKER) (test 1.57 mg/dL 0.57-1.25 Specimen slightly vxoh=060) hemolyzed GLUCOSE RANDOM (BEAKER) 652 mg/dL 70-105 (test bmzm=115) CALCIUM (BEAKER) (test 8.7 mg/dL 8.4-10.2 wmco=743) AST (SGOT) (BEAKER) (test 343 U/L 5-34 Specimen slightly fouu=527) hemolyzed ALT (SGPT) (BEAKER) (test 89 U/L 6-55 Specimen slightly etny=997) hemolyzed EGFR (BEAKER) (test 39 mL/min/1.73 sq m ESTIMATED GFR IS NOT yhyw=3001) ACCURATE CREATININE CLEARANCE IN PREDICTING GLOMERULAR FILTRATION RATE. ESTIMATED GFR IS NOT APPLICABLE FOR DIALYSIS PATIENTS. [id number] 09:09:00 Test Item Value Reference Range Comments ACTIVATED CLOTTING TIME 252 sec TESTED AT [facility] [address] [facility] (BEAKER) (test bryx=133) [place] [address] PROTHROMBIN [id number] 09:01:00 Test Item Value Reference Range Comments PROTIME (BEAKER) (test ouxr=353) 18.3 seconds 11.7-14.7 INR (BEAKER) (test mbma=839) 1.5 <=5.9 RECOMMENDED COUMADIN/WARFARIN INR THERAPY RANGESSTANDARD DOSE: 2.0 - 3.0 Includes: PROPHYLAXIS forvenous thrombosis, systemic embolization; TREATMENT for venous thrombosis and/or pulmonary embolus.HIGH RISK: Target INR is 2.5-3.5 for patients with mechanical heart valves.[id number] 08:09:00 Test Item Value Reference Range Comments ACTIVATED CLOTTING TIME 213 sec TESTED AT [address] ([facility]) (test xqwj=019) [place] [address] [id number] 08:09:00 Test Item Value Reference Range Comments ACTIVATED CLOTTING TIME 263 sec TESTED AT [address] ([facility]) (test vous=925) [place] [address] BLOOD GAS, [id number] 07:50:00 Test Item Value Reference Range Comments PH ARTERIAL (BEAKER) (test zayx=429) 7.20 7.35-7.45 PCO2 ARTERIAL (BEAKER) (test layt=259) 65 mmHg 35-45 PO2 ARTERIAL (BEAKER) (test nfdu=284) 133 mmHg 80-90 O2 SATURATION ARTERIAL (BEAKER) (test qpax=664) 98.1 % 96.0-97.0 HCO3 ARTERIAL (BEAKER) (test podx=222) 25 mmol/L 21-29 BASE EXCESS ARTERIAL (BEAKER) (test jjfk=900) -4.3 mmol/L -2.0-3.0 PATIENT TEMPERATURE (BEAKER) (test jnco=1192) 36.0 C FIO2 (BEAKER) (test howf=9501) 100.0 % POCT-GLUCOSE [id number] 12:27:00 Test Item Value Reference Range Comments POC-GLUCOSE METER (BEAKER) 156 mg/dL 70-110 TESTED AT [address] (test wbgt=3618) [place] [address] BASIC METABOLIC [id number] 05:45:00 Test Item Value Reference Range Comments SODIUM (BEAKER) (test 141 meq/L 136-145 niyk=702) POTASSIUM (BEAKER) (test 4.1 meq/L 3.5-5.1 jweh=345) CHLORIDE (BEAKER) (test 106 meq/L 98-107 aowv=715) CO2 (BEAKER) (test 26 meq/L 22-29 qfem=689) BLOOD UREA NITROGEN 11 mg/dL 7-21 (BEAKER) (test vtxy=964) CREATININE (BEAKER) (test 0.83 mg/dL 0.57-1.25 cxox=670) GLUCOSE RANDOM (BEAKER) 139 mg/dL 70-105 (test elva=182) CALCIUM (BEAKER) (test 8.5 mg/dL 8.4-10.2 lplp=539) EGFR (BEAKER) (test 83 mL/min/1.73 sq m ESTIMATED GFR IS NOT krhn=0341) ACCURATE CREATININE CLEARANCE IN PREDICTING GLOMERULAR FILTRATION RATE. ESTIMATED GFR IS NOT APPLICABLE FOR DIALYSIS PATIENTS. POCT-GLUCOSE [id number] 21:10:00 Test Item Value Reference Range Comments POC-GLUCOSE METER (BEAKER) 103 mg/dL 70-110 TESTED AT [address] (test dtqv=2696) [place] [address] POCT-GLUCOSE [id number] 17:51:00 Test Item Value Reference Range Comments POC-GLUCOSE METER (BEAKER) 138 mg/dL 70-110 TESTED AT [address] (test mxun=1373) [place] [address] POCT-GLUCOSE [id number] 12:45:00 Test Item Value Reference Range Comments POC-GLUCOSE METER (BEAKER) 294 mg/dL 70-110 TESTED AT [address] (test jhyf=3598) [place] [address] CBC WITH PLATELET COUNT + MANUAL [id number] 07:04:00 Test Item Value Reference Range Comments WHITE BLOOD CELL COUNT (BEAKER) (test jvho=032) 10.7 K/ L 4.0-10.0 RED BLOOD CELL COUNT (BEAKER) (test evrv=077) 3.91 M/ L 4.00-5.00 HEMOGLOBIN (BEAKER) (test oyzw=444) 12.9 GM/DL 12.0-15.0 HEMATOCRIT (BEAKER) (test plag=848) 39.0 % 36.0-45.0 MEAN CORPUSCULAR VOLUME (BEAKER) (test nhqz=206) 99.6 fL 82.0-99.0 MEAN CORPUSCULAR HEMOGLOBIN (BEAKER) (test 32.9 pg 27.0-33.0 kfez=686) MEAN CORPUSCULAR HEMOGLOBIN CONC (BEAKER) (test 33.0 GM/DL 32.0-36.0 hsft=074) RED CELL DISTRIBUTION WIDTH (BEAKER) (test 12.8 % 10.3-14.2 bbdf=793) PLATELET COUNT (BEAKER) (test bdty=509) 251 K/CU MM 150-430 MEAN PLATELET VOLUME (BEAKER) (test gcxc=936) 8.1 fL 6.5-10.5 NUCLEATED RED BLOOD CELLS (BEAKER) (test 0 /100 WBC 0-0 czdv=237) NEUTROPHILS RELATIVE PERCENT (BEAKER) (test 80 % ktac=382) LYMPHOCYTES RELATIVE PERCENT (BEAKER) (test 14 % hhnl=317) MONOCYTES RELATIVE PERCENT (BEAKER) (test 6 % srya=624) EOSINOPHILS RELATIVE PERCENT (BEAKER) (test 0 % voda=472) BASOPHILS RELATIVE PERCENT (BEAKER) (test 0 % otmw=718) NEUTROPHILS ABSOLUTE COUNT (BEAKER) (test 8.55 K/ L 1.80-8.00 wqhh=342) LYMPHOCYTES ABSOLUTE COUNT (BEAKER) (test 1.46 K/ L 1.48-4.50 vwxl=072) MONOCYTES ABSOLUTE COUNT (BEAKER) (test 0.60 K/ L 0.00-1.30 ncme=909) EOSINOPHILS ABSOLUTE COUNT (BEAKER) (test 0.05 K/ L 0.00-0.50 kkbn=280) BASOPHILS ABSOLUTE COUNT (BEAKER) (test 0.02 K/ L 0.00-0.20 ficn=164) 0.00(MANUAL DIFFERENTIAL)[id number] 07:04:00 Test Item Value Reference Range Comments TOTAL COUNTED (BEAKER) (test ugqf=9251) PLT MORPHOLOGY (BEAKER) (test bqkp=268) Normal RBC MORPHOLOGY (BEAKER) (test mzss=443) Normal ATYPICAL LYMPHS(BEAKER) (test fogd=1335) Present BASIC METABOLIC [id number] 05:05:00 Test Item Value Reference Range Comments SODIUM (BEAKER) (test 140 meq/L 136-145 rxgp=324) POTASSIUM (BEAKER) (test 3.8 meq/L 3.5-5.1 hcky=975) CHLORIDE (BEAKER) (test 107 meq/L 98-107 wgkh=877) CO2 (BEAKER) (test 26 meq/L 22-29 ouvl=593) BLOOD UREA NITROGEN 13 mg/dL 7-21 (BEAKER) (test oyui=292) CREATININE (BEAKER) (test 0.80 mg/dL 0.57-1.25 ljlv=602) GLUCOSE RANDOM (BEAKER) 177 mg/dL 70-105 (test ricp=629) CALCIUM (BEAKER) (test 8.3 mg/dL 8.4-10.2 zcbi=809) EGFR (BEAKER) (test 86 mL/min/1.73 sq m ESTIMATED GFR IS NOT bzvd=2396) ACCURATE CREATININE CLEARANCE IN PREDICTING GLOMERULAR FILTRATION RATE. ESTIMATED GFR IS NOT APPLICABLE FOR DIALYSIS PATIENTS. [id number] 04:48:00 Test Item Value Reference Range Comments PROTIME (BEAKER) (test mbaw=694) 13.0 seconds 11.7-14.7 INR (BEAKER) (test vxvm=335) 1.0 <=5.9 PARTIAL THROMBOPLASTIN TIME (BEAKER) (test 31.8 seconds 22.5-36.0 liqz=951) RECOMMENDED COUMADIN/WARFARIN INR THERAPY RANGESSTANDARD DOSE: 2.0 - 3.0 Includes: PROPHYLAXIS forvenous thrombosis, systemic embolization; TREATMENT for venous thrombosis and/or pulmonary embolus.HIGH RISK: Target INR is 2.5-3.5 for patients with mechanical heart valves.POCT-GLUCOSE [id number] 22:11:00 Test Item Value Reference Range Comments POC-GLUCOSE METER (BEAKER) 200 mg/dL 70-110 TESTED AT [facility] [address] [facility] (test rytp=6776) [facility] [address] POCT-GLUCOSE [id number] 17:13:00 Test Item Value Reference Range Comments POC-GLUCOSE METER (BEAKER) 225 mg/dL 70-110 TESTED AT [facility] [address] [facility] (test mban=0449) [facility] [address] POCT-GLUCOSE [id number] 12:22:00 Test Item Value Reference Range Comments POC-GLUCOSE METER (BEAKER) 309 mg/dL 70-110 Notified PAULA BERGER/TESTED AT [facility] (test mrit=4341) [address] [facility] [address] URINALYSIS W/ [id number] 12:09:00 Test Item Value Reference Range Comments COLOR (BEAKER) (test cqif=369) Yellow CLARITY (BEAKER) (test nsjl=903) Clear SPECIFIC GRAVITY UA (BEAKER) (test zywt=292) 1.035 1.001-1.035 PH UA (BEAKER) (test efmw=244) 5.0 5.0-8.0 PROTEIN UA (BEAKER) (test pjoh=564) Negative Negative GLUCOSE UA (BEAKER) (test bfrs=129) 150 mg/dL Negative KETONES UA (BEAKER) (test zjwm=542) Negative Negative BILIRUBIN UA (BEAKER) (test wwyj=321) Negative Negative BLOOD UA (BEAKER) (test ymsr=113) Small Negative NITRITE UA (BEAKER) (test ggie=874) Negative Negative LEUKOCYTE ESTERASE UA (BEAKER) (test ffmr=624) Negative Negative UROBILINOGEN UA (BEAKER) (test bame=828) 0.2 mg/dL 0.2-1.0 RBC UA (BEAKER) (test pjgd=670) 6 /HPF WBC UA (BEAKER) (test hfgd=693) 1 /HPF MUCUS (BEAKER) (test llms=9852) Rare SQUAMOUS EPITHELIAL (BEAKER) (test rtfy=214) 6 /HPF HYALINE CASTS (BEAKER) (test upfi=446) 2 /LPF SOURCE(BEAKER) (test pjlr=8032) POCT-GLUCOSE [id number] 07:58:00 Test Item Value Reference Range Comments POC-GLUCOSE METER (BEAKER) 236 mg/dL 70-110 TESTED AT [place] [address] [address] (test grsm=5127) [facility] [address] BASIC METABOLIC [id number] 04:10:00 Test Item Value Reference Range Comments SODIUM (BEAKER) (test 138 meq/L 136-145 ddsc=137) POTASSIUM (BEAKER) (test 4.2 meq/L 3.5-5.1 oemt=039) CHLORIDE (BEAKER) (test 107 meq/L 98-107 srua=255) CO2 (BEAKER) (test 22 meq/L 22-29 gauw=772) BLOOD UREA NITROGEN 20 mg/dL 7-21 (BEAKER) (test ncjv=280) CREATININE (BEAKER) (test 1.00 mg/dL 0.57-1.25 dgdu=897) GLUCOSE RANDOM (BEAKER) 246 mg/dL 70-105 (test szyo=646) CALCIUM (BEAKER) (test 8.8 mg/dL 8.4-10.2 nyhm=236) EGFR (BEAKER) (test 67 mL/min/1.73 sq m ESTIMATED GFR IS NOT badu=6615) ACCURATE CREATININE CLEARANCE IN PREDICTING GLOMERULAR FILTRATION RATE. ESTIMATED GFR IS NOT APPLICABLE FOR DIALYSIS PATIENTS. [id number] 04:03:00 Test Item Value Reference Range Comments PROTIME (BEAKER) (test ihvh=515) 12.8 seconds 11.7-14.7 INR (BEAKER) (test uzqs=376) 1.0 <=5.9 PARTIAL THROMBOPLASTIN TIME (BEAKER) (test 29.6 seconds 22.5-36.0 wzix=373) RECOMMENDED COUMADIN/WARFARIN INR THERAPY RANGESSTANDARD DOSE: 2.0 - 3.0 Includes: PROPHYLAXIS forvenous thrombosis, systemic embolization; TREATMENT for venous thrombosis and/or pulmonary embolus.HIGH RISK: Target INR is 2.5-3.5 for patients with mechanical heart valves.CBC WITH PLATELET COUNT + MANUAL [id number] 03:58:00 Test Item Value Reference Range Comments WHITE BLOOD CELL COUNT (BEAKER) (test pxqj=231) 14.3 K/ L 4.0-10.0 RED BLOOD CELL COUNT (BEAKER) (test arxx=563) 4.03 M/ L 4.00-5.00 HEMOGLOBIN (BEAKER) (test csyv=409) 13.1 GM/DL 12.0-15.0 HEMATOCRIT (BEAKER) (test svhv=885) 39.7 % 36.0-45.0 MEAN CORPUSCULAR VOLUME (BEAKER) (test dtnn=919) 98.5 fL 82.0-99.0 MEAN CORPUSCULAR HEMOGLOBIN (BEAKER) (test 32.6 pg 27.0-33.0 oosu=288) MEAN CORPUSCULAR HEMOGLOBIN CONC (BEAKER) (test 33.1 GM/DL 32.0-36.0 ocst=641) RED CELL DISTRIBUTION WIDTH (BEAKER) (test 12.9 % 10.3-14.2 gmga=666) PLATELET COUNT (BEAKER) (test emlk=576) 271 K/CU MM 150-430 MEAN PLATELET VOLUME (BEAKER) (test cwnb=549) 7.7 fL 6.5-10.5 NUCLEATED RED BLOOD CELLS (BEAKER) (test 0 /100 WBC 0-0 xdvv=024) NEUTROPHILS RELATIVE PERCENT (BEAKER) (test 87 % yirt=920) LYMPHOCYTES RELATIVE PERCENT (BEAKER) (test 7 % ucis=621) MONOCYTES RELATIVE PERCENT (BEAKER) (test 6 % blhj=421) EOSINOPHILS RELATIVE PERCENT (BEAKER) (test 0 % lvvo=889) BASOPHILS RELATIVE PERCENT (BEAKER) (test 0 % wuel=315) NEUTROPHILS ABSOLUTE COUNT (BEAKER) (test 12.40 K/ L 1.80-8.00 zxat=889) LYMPHOCYTES ABSOLUTE COUNT (BEAKER) (test 1.06 K/ L 1.48-4.50 cdzo=289) MONOCYTES ABSOLUTE COUNT (BEAKER) (test 0.81 K/ L 0.00-1.30 egrb=716) EOSINOPHILS ABSOLUTE COUNT (BEAKER) (test 0.01 K/ L 0.00-0.50 iywd=176) BASOPHILS ABSOLUTE COUNT (BEAKER) (test 0.03 K/ L 0.00-0.20 kzhq=503) 0.000.530.000.000.520.000.000.000.00POCT-GLUCOSE [id number] 22:17:00 Test Item Value Reference Range Comments POC-GLUCOSE METER (BEAKER) 260 mg/dL 70-110 TESTED AT [address] (test iukk=0123) [facility] [address] POCT-GLUCOSE [id number] 12:11:00 Test Item Value Reference Range Comments POC-GLUCOSE METER (BEAKER) 278 mg/dL 70-110 TESTED AT [address] (test duzp=7368) [facility] [address] HEMOGLOBIN [id number] 10:46:00 Test Item Value Reference Range Comments HEMOGLOBIN A1C (BEAKER) (test jlet=499) 9.7 % 4.3-6.1 DC\S\Delta Check\S\NONEPOCT-GLUCOSE [id number] 07:15:00 Test Item Value Reference Range Comments POC-GLUCOSE METER (BEAKER) 283 mg/dL 70-110 TESTED AT [facility] [address] (test orwm=3130) [facility] [address] BASIC METABOLIC [id number] 04:43:00 Test Item Value Reference Range Comments SODIUM (BEAKER) (test 136 meq/L 136-145 wvcr=053) POTASSIUM (BEAKER) (test 4.0 meq/L 3.5-5.1 xafn=842) CHLORIDE (BEAKER) (test 102 meq/L 98-107 yalu=139) CO2 (BEAKER) (test 27 meq/L 22-29 vevw=726) BLOOD UREA NITROGEN 18 mg/dL 7-21 (BEAKER) (test ilmw=065) CREATININE (BEAKER) (test 0.95 mg/dL 0.57-1.25 pcwj=142) GLUCOSE RANDOM (BEAKER) 256 mg/dL 70-105 (test pmqo=233) CALCIUM (BEAKER) (test 9.0 mg/dL 8.4-10.2 fhiz=631) EGFR (BEAKER) (test 71 mL/min/1.73 sq m ESTIMATED GFR IS NOT rglg=2781) ACCURATE CREATININE CLEARANCE IN PREDICTING GLOMERULAR FILTRATION RATE. ESTIMATED GFR IS NOT APPLICABLE FOR DIALYSIS PATIENTS. CBC WITH PLATELET COUNT + MANUAL [id number] 04:28:00 Test Item Value Reference Range Comments WHITE BLOOD CELL COUNT (BEAKER) (test koym=137) 11.6 K/ L 4.0-10.0 RED BLOOD CELL COUNT (BEAKER) (test aaty=298) 4.15 M/ L 4.00-5.00 HEMOGLOBIN (BEAKER) (test jcme=272) 13.3 GM/DL 12.0-15.0 HEMATOCRIT (BEAKER) (test vxkr=494) 40.5 % 36.0-45.0 MEAN CORPUSCULAR VOLUME (BEAKER) (test ibht=264) 97.6 fL 82.0-99.0 MEAN CORPUSCULAR HEMOGLOBIN (BEAKER) (test 32.1 pg 27.0-33.0 hhfb=522) MEAN CORPUSCULAR HEMOGLOBIN CONC (BEAKER) (test 32.9 GM/DL 32.0-36.0 tbiv=589) RED CELL DISTRIBUTION WIDTH (BEAKER) (test 12.7 % 10.3-14.2 vdxb=642) PLATELET COUNT (BEAKER) (test tydb=003) 263 K/CU MM 150-430 MEAN PLATELET VOLUME (BEAKER) (test iguh=930) 8.2 fL 6.5-10.5 NUCLEATED RED BLOOD CELLS (BEAKER) (test 0 /100 WBC 0-0 fjxb=192) NEUTROPHILS RELATIVE PERCENT (BEAKER) (test 90 % ojpg=123) LYMPHOCYTES RELATIVE PERCENT (BEAKER) (test 8 % toql=932) MONOCYTES RELATIVE PERCENT (BEAKER) (test 2 % ewti=086) EOSINOPHILS RELATIVE PERCENT (BEAKER) (test 0 % aldr=222) BASOPHILS RELATIVE PERCENT (BEAKER) (test 0 % itay=361) NEUTROPHILS ABSOLUTE COUNT (BEAKER) (test 10.40 K/ L 1.80-8.00 svqa=807) LYMPHOCYTES ABSOLUTE COUNT (BEAKER) (test 0.95 K/ L 1.48-4.50 marm=091) MONOCYTES ABSOLUTE COUNT (BEAKER) (test 0.20 K/ L 0.00-1.30 aroa=217) EOSINOPHILS ABSOLUTE COUNT (BEAKER) (test 0.02 K/ L 0.00-0.50 cdgh=807) BASOPHILS ABSOLUTE COUNT (BEAKER) (test 0.02 K/ L 0.00-0.20 fmkz=738) 0.00PT/[id number] 04:25:00 Test Item Value Reference Range Comments PROTIME (BEAKER) (test zsfe=145) 13.7 seconds 11.7-14.7 INR (BEAKER) (test ouzd=178) 1.1 <=5.9 PARTIAL THROMBOPLASTIN TIME (BEAKER) (test 32.8 seconds 22.5-36.0 ntaw=908) RECOMMENDED COUMADIN/WARFARIN INR THERAPY RANGESSTANDARD DOSE: 2.0 - 3.0 Includes: PROPHYLAXIS forvenous thrombosis, systemic embolization; TREATMENT for venous thrombosis and/or pulmonary embolus.HIGH RISK: Target INR is 2.5-3.5 for patients with mechanical heart valves.POCT-GLUCOSE [id number] 02:47:00 Test Item Value Reference Range Comments POC-GLUCOSE METER (BEAKER) 278 mg/dL 70-110 TESTED AT [facility] [address] [facility] (test zpgz=3020) [facility] [address] POCT-GLUCOSE [id number] 22:12:00 Test Item Value Reference Range Comments POC-GLUCOSE METER (BEAKER) 258 mg/dL 70-110 TESTED AT [facility] [address] (test omgo=4918) [facility] [address] [id number] 15:44:00 Test Item Value Reference Range Comments MAGNESIUM (BEAKER) (test 2.1 mg/dL 1.6-2.6 Specimen slightly hemolyzed qlpl=064) [id number] 15:44:00 Test Item Value Reference Range Comments PHOSPHORUS (BEAKER) (test 2.9 mg/dL 2.3-4.7 Specimen slightly hemolyzed pkav=775) BASIC METABOLIC [id number] 15:44:00 Test Item Value Reference Range Comments SODIUM (BEAKER) (test 137 meq/L 136-145 tojx=968) POTASSIUM (BEAKER) (test 4.4 meq/L 3.5-5.1 Specimen slightly wxpz=900) hemolyzed CHLORIDE (BEAKER) (test 99 meq/L 98-107 gzas=938) CO2 (BEAKER) (test 27 meq/L 22-29 dqfv=653) BLOOD UREA NITROGEN 13 mg/dL 7-21 (BEAKER) (test chvs=348) CREATININE (BEAKER) (test 0.96 mg/dL 0.57-1.25 Specimen slightly kxvt=428) hemolyzed GLUCOSE RANDOM (BEAKER) 250 mg/dL 70-105 (test rwmh=994) CALCIUM (BEAKER) (test 9.6 mg/dL 8.4-10.2 imop=854) EGFR (BEAKER) (test 70 mL/min/1.73 sq m ESTIMATED GFR IS NOT jtgp=0178) ACCURATE CREATININE CLEARANCE IN PREDICTING GLOMERULAR FILTRATION RATE. ESTIMATED GFR IS NOT APPLICABLE FOR DIALYSIS PATIENTS. CBC WITH PLATELET COUNT + MANUAL [id number] 15:39:00 Test Item Value Reference Range Comments WHITE BLOOD CELL COUNT (BEAKER) (test kwoy=528) 9.5 K/ L 4.0-10.0 RED BLOOD CELL COUNT (BEAKER) (test oain=979) 4.18 M/ L 4.00-5.00 HEMOGLOBIN (BEAKER) (test pthi=808) 14.0 GM/DL 12.0-15.0 HEMATOCRIT (BEAKER) (test hpqm=847) 40.7 % 36.0-45.0 MEAN CORPUSCULAR VOLUME (BEAKER) (test zfab=141) 97.3 fL 82.0-99.0 MEAN CORPUSCULAR HEMOGLOBIN (BEAKER) (test 33.4 pg 27.0-33.0 jwli=986) MEAN CORPUSCULAR HEMOGLOBIN CONC (BEAKER) (test 34.3 GM/DL 32.0-36.0 kbvm=100) RED CELL DISTRIBUTION WIDTH (BEAKER) (test 12.6 % 10.3-14.2 caov=725) PLATELET COUNT (BEAKER) (test cvpz=907) 253 K/CU MM 150-430 MEAN PLATELET VOLUME (BEAKER) (test wdvf=186) 8.1 fL 6.5-10.5 NUCLEATED RED BLOOD CELLS (BEAKER) (test 0 /100 WBC 0-0 uyau=647) NEUTROPHILS RELATIVE PERCENT (BEAKER) (test 91 % eyuj=871) LYMPHOCYTES RELATIVE PERCENT (BEAKER) (test 8 % qkfb=368) MONOCYTES RELATIVE PERCENT (BEAKER) (test 1 % jbqj=713) EOSINOPHILS RELATIVE PERCENT (BEAKER) (test 0 % pvyh=035) BASOPHILS RELATIVE PERCENT (BEAKER) (test 0 % vgdq=434) NEUTROPHILS ABSOLUTE COUNT (BEAKER) (test 8.66 K/ L 1.80-8.00 iqnt=242) LYMPHOCYTES ABSOLUTE COUNT (BEAKER) (test 0.78 K/ L 1.48-4.50 dtcz=746) MONOCYTES ABSOLUTE COUNT (BEAKER) (test 0.07 K/ L 0.00-1.30 ikha=017) EOSINOPHILS ABSOLUTE COUNT (BEAKER) (test 0.01 K/ L 0.00-0.50 cpro=447) BASOPHILS ABSOLUTE COUNT (BEAKER) (test 0.01 K/ L 0.00-0.20 mpzi=960) [id number] 15:39:00 Test Item Value Reference Range Comments PROTIME (BEAKER) (test bgos=782) 12.7 seconds 11.7-14.7 INR (BEAKER) (test nepr=462) 1.0 <=5.9 PARTIAL THROMBOPLASTIN TIME (BEAKER) (test 32.8 seconds 22.5-36.0 oswn=750) RECOMMENDED COUMADIN/WARFARIN INR THERAPY RANGESSTANDARD DOSE: 2.0 - 3.0 Includes: PROPHYLAXIS forvenous thrombosis, systemic embolization; TREATMENT for venous thrombosis and/or pulmonary embolus.HIGH RISK: Target INR is 2.5-3.5 for patients with mechanical heart valves.
[2018-08-10 13:10] LABS: Absolute Lymphocytes (CBC) 0.4 K/uL (0.7-4.9); Absolute Monocytes 0.3 K/uL (0.1-1.3); Absolute Neutrophil 5.4 K/uL (1.8-8.0); Basophils % 1.4 % (0-1.3); Eosinophils % 4.4 % (0-4.4); Hematocrit 32.4 % (36.0-45.0); Lymphocytes % 6.4 % (15.3-44.8); MPV 8.4 fL (7.6-11.3); Monocytes % 3.9 % (3.3-12.3); RBC Red Blood Cell Count 3.25 M/uL (3.86-4.86)
[2018-08-10 13:11] LABS: Protime INR 1.04
[2018-08-10 13:42] LABS: Albumin 3.8 g/dL (3.4-5.0); Bilirubin Direct 0.3 mg/dL (0-0.2); Bilirubin Total 0.6 mg/dL (0.2-1.0); Magnesium 1.8 mg/dL (1.8-2.4); Potassium 4.1 mmol/L (3.5-5.1); Protein, Total 8.5 g/dL (6.4-8.2); Troponin (Emerg Dept Use Only) 0.02 ng/mL (0.0-0.045)
--- NOTE | 2018-08-10 14:23 | RAD REPORT ---
EXAM DESCRIPTION: RAD - Chest Single View - 08/10/2018 1:41 pm CLINICAL HISTORY: Lethargy, dehydration, shortness of breath, CHF and COPD history, emphysema COMPARISON: August 05, 2018 TECHNIQUE: AP portable chest image was obtained 1324 hours . FINDINGS: No peripheral mass or consolidation. No pulmonary edema identified. Cardiac silhouette is enlarged. Mediastinum is prominent but stable. Descending thoracic aorta stent is in place. Patient h as an external cardiac monitoring vast in place. No measurable pleural effusion and no pneumothorax. No acute bony abnormality seen. No acute aortic findings suspected. IMPRESSION: No acute cardiopulmonary process. Above detailed chest findings are not significantly different from comparison.
--- NOTE | 2018-08-10 16:09 | ER ---
Nurse's Notes [facility] Name: Christa Ayala Age: 72 yrs Sex: Female : 1945 Arrival Date: 08/10/2018 Time: 12:27 Bed 25 Private MD: Diagnosis: Weakness Presentation: 08/10 12:28 Presenting complaint: EMS states: family concerned about dehydration, pt is lethargic, dm5 IV L AC with 30 ml fluid TKO. 12:29 Transition of care: patient was not received from another setting of care. dm5 12:29 Method Of Arrival: EMS: [facility] dm5 12:30 Onset of symptoms was August 05, 2018. Risk Assessment: Do you want to hurt yourself or dm5 someone else? Patient reports no desire to harm self or others. 12:30 Acuity: SONYA 3 dm5 12:35 Initial Sepsis Screen: Does the patient meet any 2 criteria? No. Patient's initial dm5 sepsis screen is negative. Does the patient have a suspected source of infection? No. Patient's initial sepsis screen is negative. Care prior to arrival: Medication(s) given: Normal saline infusion, 30 ml TKO, disconnected to collect blood. Historical: - Allergies: 12:29 Codeine; dm5 12:29 Iodine; dm5 - Home Meds: 13:42 aspirin 81 mg Oral TbEC 1 tab once daily [Active]; atorvastatin 40 mg Oral tab 1 tab dm5 nightly [Active]; escitalopram oxalate 10 mg Oral tab 1 tab once daily [Active]; glimepiride 1 mg Oral tab 1 tab once daily [Active]; pantoprazole 40 mg Oral TbEC 1 tab once daily [Active]; Plavix 75 mg Oral tab 1 tab once daily [Active]; milrinone intravenous 400 mcg/ml intravenous continuous as directed [Active]; acetaminophen 325 mg Oral tab 1 -2 tabs every 4-6 hours for Pain [Active]; metformin 1,000 mg Oral tab 1 tab 2 times per day [Active]; bumetanide 1 mg Oral tab 1 tab 2 times per day [Active]; Gentle Laxative 5 mg oral TbEC 2 tabs once daily [Active]; digoxin 125 mcg Oral tab 1 tab once daily [Active]; isosorbide mononitrate 30 mg Oral Tb24 1 tab once daily [Active]; carvedilol 6.25 mg oral tab 1 tab 2 times per day [Active]; - PMHx: 12:29 CHF; COPD; Diabetes - NIDDM; Emphysema; enlarged aorta; Hypertension; Myocardial dm5 infarction; - PSHx: 16:42 Unable to obtain; rv - Immunization history:: Adult Immunizations up to date. - Social history:: Smoking status: Patient/guardian denies using tobacco. - Ebola Screening: : No symptoms or risks identified at this time. Screenin:00 Abuse screen: Denies threats or abuse. Denies injuries from another. Nutritional ss screening: No deficits noted. Tuberculosis screening: Never had TB. Fall Risk None identified. Assessment: 12:46 General: Appears in no apparent distress. Behavior is calm, cooperative, drowsy. Pain: dm5 Denies pain. Neuro: Level of Consciousness is lethargic, Oriented to person, place, time. Cardiovascular: No deficits noted. Respiratory: Airway is patent. GI: No deficits noted. : No deficits noted. Derm: Skin is intact, Skin is dry. 13:00 General: Appears in no apparent distress. comfortable, Behavior is calm, cooperative. ss General: generalized weakness/ fatigue x 1 week. Neuro: Level of Consciousness is awake, alert, Oriented to person, place, time. Respiratory: Airway is patent Respiratory effort is even, unlabored, Respiratory pattern is regular, symmetrical, Denies cough, shortness of breath pain with respiration, pain with cough, pain with movement. GI: Patient currently denies abdominal pain, diarrhea, nausea, vomiting. EENT: Oral mucosa is moist. Throat is clear. Derm: Skin is intact, is fragile, is thin, with poor turgor Skin is dry, Skin is normal. Musculoskeletal: Circulation, motion, and sensation intact. Range of motion: intact in all extremities, Swelling absent. 14:38 Reassessment: Patient appears in no apparent distress at this time. Dr. Dill at bedside updating patient and family on plan of care. Awaiting Dr. Stevens to call back for consultation. 16:43 Reassessment: Patient appears in no apparent distress at this time. Patient and/or rv family updated on plan of care and expected duration. Pain level reassessed. Patient is alert, oriented x 3, equal unlabored respirations, skin warm/dry/pink. AWAITING TRANSPORT. Patient states feeling better. Patient states symptoms have improved. Vital Signs: 12:35 BP 85 / 86; Pulse 93; Resp 19; Temp 97.7; Pulse Ox 99% on 2 lpm NC; Weight 55.34 kg (R);dm5 13:00 BP 104 / 67; Pulse 90; Resp 17; Pulse Ox 100% on R/A; Pain 0/10; ss 14:40 BP 100 / 64; ss 15:30 BP 100 / 77; Pulse 94; Resp 16; Temp 97.7; Pulse Ox 100% on 2 lpm NC; rv 16:30 BP 122 / 70; Pulse 87; Resp 15; Temp 97.5; Pulse Ox 100% on 2 lpm NC; rv ED Course: 12:27 Patient arrived in ED. dm5 12:31 Triage completed. dm5 12:32 Molina Dill MD is Attending Physician. kdr 12:46 Arm band placed on right wrist. Patient placed in an exam room, on a stretcher, on dm5 oxygen, on property assessment monitor, on pulse oximetry. 12:46 EKG done, by billing and quality technician. reviewed by oMlina Dill MD. sm3 12:53 Maintain EMS IV. Dressing intact. Flushed forearm. 5 12:54 Initial lab(s) drawn, by az, sent to lab. 5 12:54 CBC with Automated Diff Sent. 5 12:54 Basic Metabolic Panel Sent. 5 12:54 Basic Metabolic Panel Sent. 5 12:54 CBC with Diff Sent. 5 12:55 LFT's Sent. 5 12:55 Magnesium Sent. 5 12:55 NT PRO-BNP Sent. 5 12:55 PT-INR Sent. 5 12:55 Troponin (emerg Dept Use Only) Sent. 5 13:00 Patient has correct armband on for positive identification. Bed in low position. Call light in reach. child monitor on. Pulse ox on. NIBP on. Warm blanket given. 13:30 Yecenia Horner, PAULA is Primary Nurse. ss 13:40 X-ray completed. Portable x-ray completed in exam room. Patient tolerated procedure mh1 well. 13:42 XRAY Chest (1 view) In Process Unspecified. EDMS 16:43 No provider procedures requiring assistance completed. IV discontinued, intact, rv bleeding controlled, No redness/swelling at site. Pressure dressing applied. Administered Medications: 16:13 Drug: NS 0.9% 500 ml Route: IV; Rate: bolus; Site: left forearm; rv 16:40 Follow up: IV Status: Completed infusion; IV Intake: 500ml rv Intake: 16:40 IV: 500ml; Total: 500ml. rv Outcome: 16:08 Discharge ordered by . kdr 16:43 Discharged to home via wheelchair. rv 16:43 Condition: good 16:43 Discharge instructions given to patient, family, Instructed on discharge instructions, follow up and referral plans. Demonstrated understanding of instructions, follow-up care. 17:11 Patient left the ED. rv Signatures: Dispatcher [employer] Leela Griffith, RN RN 5 Molina Dill MD MD [facility] Linda Marks 1 Yecenia Horner RN RN ss Martinez, Maria 5 Arianna Miller 3 Paulino Cheng RN RN rv
--- NOTE | 2018-08-10 16:09 | EDPHYS ---
Physician Documentation [facility] Name: Christa Ayala Age: 72 yrs Sex: Female : 1945 Arrival Date: 08/10/2018 Time: 12:27 Bed 25 Private MD: ED Physician Molina Dill HPI: 08/10 13:37 This 72 yrs old Black Female presents to ER via EMS with complaints of dehydration - kdr lethargy. 13:37 The patient recently had PIC line replaced. Now it is reported that she may be kdr dehydrated and weak. The patient is unable to related a reason as to why she is here.. Onset: The symptoms/episode began/occurred at an unknown time. Severity of symptoms: At their worst the symptoms were mild in the emergency department the symptoms are unchanged. It is unknown whether or not the patient has had similar symptoms in the past. It is unknown whether or not the patient has recently seen a physician. Historical: - Allergies: 12:29 Codeine; dm5 12:29 Iodine; dm5 - Home Meds: 13:42 aspirin 81 mg Oral TbEC 1 tab once daily [Active]; atorvastatin 40 mg Oral tab 1 tab dm5 nightly [Active]; escitalopram oxalate 10 mg Oral tab 1 tab once daily [Active]; glimepiride 1 mg Oral tab 1 tab once daily [Active]; pantoprazole 40 mg Oral TbEC 1 tab once daily [Active]; Plavix 75 mg Oral tab 1 tab once daily [Active]; milrinone intravenous 400 mcg/ml intravenous continuous as directed [Active]; acetaminophen 325 mg Oral tab 1 -2 tabs every 4-6 hours for Pain [Active]; metformin 1,000 mg Oral tab 1 tab 2 times per day [Active]; bumetanide 1 mg Oral tab 1 tab 2 times per day [Active]; Gentle Laxative 5 mg oral TbEC 2 tabs once daily [Active]; digoxin 125 mcg Oral tab 1 tab once daily [Active]; isosorbide mononitrate 30 mg Oral Tb24 1 tab once daily [Active]; carvedilol 6.25 mg oral tab 1 tab 2 times per day [Active]; - PMHx: 12:29 CHF; COPD; Diabetes - NIDDM; Emphysema; enlarged aorta; Hypertension; Myocardial dm5 infarction; - PSHx: 16:42 Unable to obtain; rv - Immunization history:: Adult Immunizations up to date. - Social history:: Smoking status: Patient/guardian denies using tobacco. - Ebola Screening: : No symptoms or risks identified at this time. ROS: 13:37 Constitutional: Negative for fever, chills, and weight loss, Eyes: Negative for injury, kdr pain, redness, and discharge, Neck: Negative for injury, pain, and swelling, Cardiovascular: Negative for chest pain, palpitations, and edema, Respiratory: Negative for shortness of breath, cough, wheezing, and pleuritic chest pain, Abdomen/GI: Negative for abdominal pain, nausea, vomiting, diarrhea, and constipation, Back: Negative for injury and pain, : Negative for injury, bleeding, discharge, and swelling, MS/Extremity: Negative for injury and deformity, Skin: Negative for injury, rash, and discoloration, Neuro: Negative for headache, weakness, numbness, tingling, and seizure activity. Allergy/Immunology: Negative for hives, rash, and allergies. Exam: 13:37 Constitutional: This is a well developed, well nourished patient who is awake, alert, kdr and in no acute distress. Head/Face: Normocephalic, atraumatic. Eyes: Pupils equal round and reactive to light, extra-ocular motions intact. Lids and lashes normal. Conjunctiva and sclera are non-icteric and not injected. Cornea within normal limits. Periorbital areas with no swelling, redness, or edema. Neck: Trachea midline, no thyromegaly or masses palpated, and no cervical lymphadenopathy. Supple, full range of motion without nuchal rigidity, or vertebral point tenderness. No Meningismus. Chest/axilla: Normal chest wall appearance and motion. Nontender with no deformity. No lesions are appreciated. Cardiovascular: Regular rate and rhythm with a normal S1 and S2. No gallops, murmurs, or rubs. Normal PMI, no JVD. No pulse deficits. Respiratory: Lungs have equal breath sounds bilaterally, clear to auscultation and percussion. No rales, rhonchi or wheezes noted. No increased work of breathing, no retractions or nasal flaring. Abdomen/GI: Soft, non-tender, with normal bowel sounds. No distension or tympany. No guarding or rebound. No evidence of tenderness throughout. Back: No spinal tenderness. No costovertebral tenderness. Full range of motion. Skin: Warm, dry with sligihtly poor turgor. Normal color with no rashes, no lesions, and no evidence of cellulitis. MS/ Extremity: Pulses equal, no cyanosis. Neurovascular intact. Full, normal range of motion. Neuro: Awake and alert, GCS 15, oriented to person, place, time, and situation. Cranial nerves II-XII grossly intact. Motor strength 5/5 in all extremities. Sensory grossly intact. Cerebellar exam normal. Normal gait. Psych: Awake, alert, with orientation to person, place and time. Behavior, mood, and affect are within normal limits. Vital Signs: 12:35 BP 85 / 86; Pulse 93; Resp 19; Temp 97.7; Pulse Ox 99% on 2 lpm NC; Weight 55.34 kg (R);dm5 13:00 BP 104 / 67; Pulse 90; Resp 17; Pulse Ox 100% on R/A; Pain 0/10; ss 14:40 BP 100 / 64; ss 15:30 BP 100 / 77; Pulse 94; Resp 16; Temp 97.7; Pulse Ox 100% on 2 lpm NC; rv 16:30 BP 122 / 70; Pulse 87; Resp 15; Temp 97.5; Pulse Ox 100% on 2 lpm NC; rv MDM: 13:37 Data reviewed: vital signs, nurses notes, lab test result(s), EKG, radiologic studies. kdr Counseling: I had a detailed discussion with the patient and/or guardian regarding: the historical points, exam findings, and any diagnostic results supporting the discharge/admit diagnosis, lab results, radiology results. 16:08 Patient medically screened. kdr 08/10 12:32 Order name: Basic Metabolic Panel kdr 08/10 12:32 Order name: CBC with Diff kdr 08/10 12:32 Order name: LFT's; Complete Time: 14:09 kdr 08/10 12:32 Order name: Magnesium; Complete Time: 14: kdr 08/10 12:32 Order name: NT PRO-BNP; Complete Time: 14: kdr 08/10 12:32 Order name: PT-INR; Complete Time: 14: kdr 08/10 12:32 Order name: Troponin (emerg Dept Use Only); Complete Time: 14:09 [facility] 08/10 12:32 Order name: XRAY Chest (1 view); Complete Time: 16:02 [facility] 08/10 12:32 Order name: EKG; Complete Time: 12:34 [facility] 08/10 12:32 Order name: Cardiac monitoring; Complete Time: 12:55 [facility] 08/10 12:32 Order name: EKG - Nurse/Tech; Complete Time: 13:21 [facility] 08/10 12:34 Order name: Basic Metabolic Panel; Complete Time: 14:09 [facility] 08/10 12:34 Order name: CBC with Automated Diff; Complete Time: 14:09 [facility] 08/10 12:32 Order name: IV Saline Lock; Complete Time: 12:55 [facility] 08/10 12:32 Order name: Labs collected and sent; Complete Time: 12:54 [facility] 08/10 12:32 Order name: O2 Per Protocol; Complete Time: 13:18 [facility] 08/10 12:32 Order name: O2 Sat Monitoring; Complete Time: 13:18 kdr Administered Medications: 16:13 Drug: NS 0.9% 500 ml Route: IV; Rate: bolus; Site: left forearm; rv 16:40 Follow up: IV Status: Completed infusion; IV Intake: 500ml rv Disposition: 08/10/18 16:08 Discharged to Home. Impression: Weakness. - Condition is Stable. - Medication Reconciliation Form, Thank You Letter, Antibiotic Education, Prescription Opioid Use form. - Follow up: Private Physician; When: 1 - 2 days; Reason: If symptoms return, Further diagnostic work-up, Recheck today's complaints, Continuance of care, Re-evaluation by your physician. - Problem is an ongoing problem. - Symptoms have improved. Signatures: Dispatcher [employer] [facility] Leela Hernandez RN RN Molina Jesnen MD MD kdr Yecenia Horner RN RN ss Vicente, Ronaldo, RN RN rv Corrections: (The following items were deleted from the chart) 17:11 16:08 08/10/2018 16:08 Discharged to Home. Impression: Weakness. Condition is Stable. rv Forms are Medication Reconciliation Form, Thank You Letter, Antibiotic Education, Prescription Opioid Use. Follow up: Private Physician; When: 1 - 2 days; Reason: If symptoms return, Further diagnostic work-up, Recheck today's complaints, Continuance of care, Re-evaluation by your physician. Problem is an ongoing problem. Symptoms have improved. kdr
[2018-08-10] MEDS ORDERED: NA CHLORIDE 0.9% 1,000 ML ONE (16:24)
[2018-08-10 17:30] VITALS: O2SAT 100
[2018-08-10 17:35] VITALS: BP 122/70; TEMP 97.5
--- NOTE | 2018-08-11 07:14 | EKG ---
Test Date: 2018-08-10 Test Time: 12:46:04 New Account Interviewer: HAMMAD/S MEASUREMENT RESULTS: Intervals: Rate: 93 TX: 176 QRSD: 86 QT: 358 QTc: 445 [place]: P: 56 TX: 176 QRS: -4 T: 6 INTERPRETIVE STATEMENTS: Normal sinus rhythm Possible Left atrial enlargement Cannot rule out Inferior infarct, age undetermined Abnormal ECG Compared to ECG 06/28/2018 11:36:44 Myocardial infarct finding now present T-wave abnormality no longer present Possible ischemia no longer present Prolonged QT interval no longer present Electronically Signed On 08-11-18 07:11:37 CDT by Vitaliy Hook
== END 2018-08-10 17:11 | disposition home or self-care (01) ==
LOC: ER 12:25
DX: R53.1 Weakness (principal); I11.0 Hypertensive heart disease with heart failure; I50.9 Heart failure, unspecified; E11.9 Type 2 diabetes mellitus without complications; I25.2 Old myocardial infarction; Z79.84 Long term (current) use of oral hypoglycemic drugs; Z79.82 Long term (current) use of aspirin
CPT/HCPCS: 93005; 85025; 80048; 36415; 83735; 85610; 80076; 84484; 83880; 71045; 99285; J7030

== ENCOUNTER 2018-08-18 12:09 | Emergency (ER) | payer OTHER ==
--- OUTSIDE RECORDS SUMMARY | 2018-08-18 12:19 | XMS REPORT | Clinical Summary ---
:1945 Author Organization [facility] Address [address] [place] [address] Care Team Providers Name Role Phone RodneyKendrick [...] tablet times daily with breakfast and dinner. zinc Apply 45 g 1 Tube 0 [...] tablet mcg total) by 0 mouth daily. amLODIPine Take 10 mg by 0 Discontinued (NORVASC) 10 MG mouth daily. 9 tablet lisinopril Take 10 mg by 0 Discontinued (PRINIVIL,ZESTRIL mouth daily. 9 ) 10 MG tablet atorvastatin Take 1 tablet (40 30 tablet 11 08/10/2017 (LIPITOR) 40 MG mg total) by mouth [...] 9 MG tablet every 8 (eight) hours. isosorbide Take 1 tablet (30 30 tablet 11 08/10/2017 mononitrate mg total) by mouth 9 (IMDUR) 30 MG 24 daily. hr tablet metoprolol Take 0.5 tablets 30 tablet 11 [...] 06/12/2016 Overview: S/p TEVAR with Dr. 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) (Primary Dx) 08/09/2018 Orders Only Melanie Diaz I 08/08/2018 Orders Only Diaz Melanie I 07/11/2018 Travel 07/08/2018 Orders Only [...] mellitus with other specified complication, unspecified whether chcf insulin use (HCC); Cardiogenic shock (HCC); Ischemic cardiomyopathy; Acute on chronic systolic heart failure (HCC); Acute respiratory insufficiency; Right ventricular dysfunction; Essential hypertension 06/29/2018 Surgery Preventza, [facility] MD Suzette 08/18/2017 Office Visit Cardiology Mely Iniguez, Acute on chronic WARP SCOURING VAT TENDER systolic (congestive) heart failure (HCC) (Primary Dx) after 08/17/2017 Family History Medical History Relation Name Comments [...] 09/13/2018 Office Visit Transplant Kenton Levy MD [address] [facility] [address] [place] [address] Implants Implanted Type Area Career Discovery Teacher Device Shelf Model / Identifier Expiration Serial / Date Lot Francis Ray Thor Endo [id number] CV Aneurysm COOK:AORTIC [id number] 03/20/2021 [id number] / Implanted: Qty: 1 on 06/29/2018 by Masha Servin MD INTERVENTION / [id number] Grrosa maria Zenith Thor Endo [id number] - [id number] CV Aneurysm COOK:AORTIC [id number] 02/10/2019 [id number] / Implanted: Qty: 1 on 06/29/2018 by Masha Servin MD INTERVENTION / [id number] Grft Zenith Thor Endo [id number] - [id number] CV Aneurysm COOK:AORTIC [id number] 12/27/2020 [id number] / Implanted: Qty: 1 on 06/29/2018 by Masha Servin MD INTERVENTION / [id number] Synergy Cardiovascular Coronary [place] [id number] 01/10/2018 [id number] / Implanted: Qty: 1 on 07/18/2017 by Oksana Stallings MD SCIENTIFIC / [id number] Procedures Procedure Name Priority Date/Time Associated Comments [...] in heart failure (HCC) the results section. after 08/17/2017 Results RHYTHM STRIP - SCAN (07/25/2018 9:50 AM CDT)Only the most recent of3 resultswithin the time period is included. Narrative Performed At VASCULAR DIAGRAM -SCAN (07/25/2018 9:50 AM CDT) Narrative Performed At POC-Glucose meter (07/22/2018 12:27 PM CDT)Only the most recent of64 resultswithin the time period is included. POC-Glucose Meter 221 (H)Comment: TESTED AT 70 - 110 mg/dL [facility] [address] [facility] [address] Specimen Blood Performing Organization Address City/State/Zipcode Phone Number [facility] [address] [place] [address] CENTER XR chest 1 view portable / bedside (07/22/2018 6:38 AM CDT)Only the most recent of25 resultswithin the time period is included. Specimen Narrative Performed At FINAL REPORT [facility] RAD, CHEST, 1 VIEW, NON DEPT INDICATION: post op COMPARISON: Prior day's exam FINDINGS: Portable frontal view of the chest. IMPRESSION: Support Lines: Stable. Lungs and pleura: Unchanged airspace and pleural opacities. No pneumothorax. Heart and mediastinum: Stable contours. Stable surgical changes. Additional findings: None. Signed: Trey Robles MD Report Verified Date/Time:07/22/2018 08:57:17 Reading Location: [address] Neuro Reading Room Procedure Note Interface, [...] Report Verified Date/Time: 07/22/2018 08:57:17 Reading Location: [facility] C013 Neuro Reading Room Performing Organization Address City/State/Zipcode Phone Number GE RIS aPTT (07/22/2018 4:58 AM CDT)Only the most recent of22 resultswithin the time period is included. PTT 44.5 (H) 22.5 - 36.0 seconds [facility] Specimen Blood Performing Organization Address City/[facility]/Zipcode Phone Number [address] [address] [phone] CENTER CBC (Hemogram only) (07/22/2018 4:58 AM CDT)Only the most recent of20 resultswithin the time period is included. WBC 6.6 3.5 - 10.5 K/L [facility] RBC 2.45 (L) 3.93 - 5.22 M/L [facility] Hemoglobin 7.7 (L) 11.2 - 15.7 GM/DL [facility] Hematocrit 26.1 (L) 34.1 - 44.9 % [facility] MCV 106.5 (H) 79.4 - 94.8 fL [facility] MCH 31.4 25.6 - 32.2 pg [facility] MCHC 29.5 (L) 32.2 - 35.5 GM/DL [facility] RDW 18.0 (H) 11.7 - 14.4 % [facility] Platelets 227 150 - 450 K/CU MM [facility] MPV 10.0 9.4 - 12.3 fL [facility] nRBC 0 0 - 0 /100 WBC [facility] Specimen Blood Performing Organization Address City/[facility] Phone Number [address] [address] [phone] CENTER Phosphorus (07/22/2018 4:58 AM CDT)Only the most recent of20 resultswithin the time period is included. Phosphorus 3.9 2.3 - 4.7 mg/dL [facility] Specimen Blood Performing Organization Address City/[facility] Phone Number [address] [address] CENTER Magnesium (07/22/2018 4:58 AM CDT)Only the most recent of23 resultswithin the time period is included. Magnesium 1.7 1.6 - 2.6 mg/dL [facility] Specimen Blood Performing Organization Address City/[facility] Phone Number [address] [address] CENTER Basic Metabolic Panel (07/22/2018 4:58 AM CDT)Only the most recent of28 resultswithin the time period is included. Sodium 139 136 - 145 meq/L [facility] Potassium 4.4 3.5 - 5.1 meq/L [facility] Chloride 102 98 - 107 meq/L [facility] CO2 30 (H) 22 - 29 meq/L [facility] BUN 23 (H) 7 - 21 mg/dL [facility] Creatinine 1.40 (H) 0.57 - 1.25 mg/dL [facility] Glucose 139 (H) 70 - 105 mg/dL [facility] Calcium 8.8 8.4 - 10.2 mg/dL [facility] EGFR 45Comment: ESTIMATED GFR IS mL/min/1.73 sq m [facility] NOT ACCURATE CREATININE [facility] CENTER CLEARANCE IN PREDICTING GLOMERULAR FILTRATION RATE. ESTIMATED GFR IS NOT APPLICABLE FOR DIALYSIS PATIENTS. Specimen Blood Performing Organization Address [facility] Phone Number [address] [address] CENTER Prothrombin time/INR (07/19/2018 4:49 AM CDT)Only the most recent of19 resultswithin the time period is included. Protime 13.9 11.7 - 14.7 seconds [facility] INR 1.1 <=5.9 [facility] Specimen Blood Narrative Performed At RECOMMENDED COUMADIN/WARFARIN INR THERAPY [facility] RANGES STANDARD DOSE: 2.0 - 3.0 Includes: PROPHYLAXIS for venous thrombosis, systemic embolization; TREATMENT for venous thrombosis and/or pulmonary embolus. HIGH RISK: Target INR is 2.5-3.5 for patients with mechanical heart valves. Performing Organization Address City/[facility] Phone Number [address] [address] CENTER Digoxin level (07/13/2018 8:06 AM CDT) Digoxin Lvl 0.8 0.8 - 2.0 ng/mL [facility] Specimen Blood Narrative Performed At Draw before next dose of Digoxin [facility] Performing Organization Address City/[facility]/Zipcode Phone Number [address] [phone] CENTER TRANSFUSION SERVICE REPORT - SCAN (07/12/2018 5:56 PM CDT)Only the most recent of3 resultswithin the time period is included. Narrative Performed At Prepare Leuko-Red RBC (07/11/2018 11:54 PM CDT) Unit ABO A Pos SAFETRACE TX UNIT NUMBER [id number] SAFETRACE TX Status TX_TIMEINCHART SAFETRACE TX Blood Bank Product RED BLOOD CELLS SAFETRACE TX PRODUCT CODE [id number] SAFETRACE TX CROSSMATCH COMPATIBLE SAFETRACE TX Specimen Other Performing Organization Address City/[facility]/Zipcode Phone Number SAFETRACE TX Transfuse Leuko-Red RBC (07/10/2018 6:35 PM CDT)Only the most recent of2 resultswithin the time period is included.Type and screen, automated (2018 5:25 AM CDT)Only the most recent of2 resultswithin the time period is included. ABO/RH AUTOMATED (BEAKER) A POSITIVE [facility] Ab Scrn NEGATIVE [facility] Specimen Blood Performing Organization Address City/[facility] Phone Number [facility] [address] [place] [address] [phone] ECG 12 lead (07/08/2018 12:15 PM CDT)Only the most recent of2 resultswithin the time period is included. Specimen Narrative Performed At Ventricular Rate 107 BPM GE MUSE Atrial Rate 107 BPM P-R Interval 154 ms QRS Duration 104 ms Q-T Interval 382 ms QTC Calculation(Bazett) 509 ms P [place] 52 degrees R [place] -18 degrees T [place] 62 degrees Sinus tachycardia Nonspecific T wave [...] 382 ms QTC Calculation(Bazett) 509 ms P [place] 52 degrees R [place] -18 degrees T [place] 62 degrees Sinus tachycardia Nonspecific T wave abnormality Prolonged QT Abnormal ECG When compared with ECG of 06-JUL-2018 10:28, Nonspecific T wave abnormality, improved in Anterior leads QT has lengthened Confirmed by MD BIRGIT, REGINAStar ([id number]) on 07/09/2018 6:44:32 AM Performing Organization Address [facility] Phone Number GE MUSE Blood gas, arterial (07/06/2018 4:26 PM CDT)Only the most recent of6 resultswithin the time period is included. pH, Arterial 7.46 (H) 7.35 - 7.45 [facility] pCO2, Arterial 42 35 - 45 mmHg [facility] pO2, Arterial 63 (L) 80 - 90 mmHg [facility] O2 Sat, Arterial 93.1 (L) 96.0 - 97.0 % [facility] HCO3, Arterial 29 21 - 29 mmol/L [facility] Base Excess, Arterial 4.4 (H) -2.0 - 3.0 mmol/L [facility] Patient Temperature 37.0 C [facility] FIO2 32.0 % [facility] Specimen Blood, Arterial Performing Organization Address [facility] Phone Number [facility] [address] [place] [address] [phone] CENTER Hepatic function panel (07/05/2018 5:16 PM CDT)Only the most recent of2 resultswithin the time period is included. Protein, Total 6.2 6.0 - 8.3 gm/dL [facility] Albumin 3.2 (L) 3.5 - 5.0 g/dL [facility] Total Bilirubin 0.7 0.2 - 1.2 mg/dL [facility] Bilirubin, Direct 0.5 0.1 - 0.5 mg/dL [facility] Alkaline Phosphatase 84 40 - 150 U/L [facility] AST 16 5 - 34 U/L [facility] ALT 9 6 - 55 U/L [facility] Specimen Blood Performing Organization Address City/State/Zipcode Phone Number [facility] [address] [place] [address] [phone] CENTER Potassium (07/03/2018 10:03 AM CDT) Potassium 4.3 3.5 - 5.1 meq/L [facility] Specimen Blood Narrative Performed At Check Serum Potassium level 30 minutes after [facility] IV potassium replacement completed. Performing Organization Address City/State/[facility] Phone Number [address] [phone] [place] XR abdomen / KUB 1 view (07/03/2018 [...] MD Report Verified Date/Time:07/03/2018 06:21:16 Reading Location: [address] Transitional Reading Room Procedure Note Interface, [...] Report Verified Date/Time: 07/03/2018 06:21:16 Reading Location: [facility] B1 C013T Transitional Reading Room Performing Organization Address City/State/Zipcode Phone Number GE RIS Oxygen saturation, measured (07/02/2018 10:46 AM CDT)Only the most recent of3 resultswithin the time period is included. O2 Saturation (Measured) 50.1 % [facility] Specimen Blood Performing Organization Address City/[facility] Phone Number [place] [phone] [place] [address] CENTER CBC with platelet count + automated diff (07/02/2018 4:09 AM CDT)Only the most recent of6 resultswithin the time period is included. WBC 7.9 3.5 - 10.5 K/L [facility] RBC 2.83 (L) 3.93 - 5.22 M/L [facility] Hemoglobin 8.6 (L) 11.2 - 15.7 GM/DL [facility] Hematocrit 28.4 (L) 34.1 - 44.9 % [facility] MCV 100.4 (H) 79.4 - 94.8 fL [facility] MCH 30.4 25.6 - 32.2 pg [facility] MCHC 30.3 (L) 32.2 - 35.5 GM/DL [facility] RDW 17.9 (H) 11.7 - 14.4 % [facility] Platelets 222 150 - 450 K/CU MM [facility] MPV 9.9 9.4 - 12.3 fL [facility] nRBC 0 0 - 0 /100 WBC [facility] % Neutros 85 % [facility] % Lymphs 6 % [facility] % Monos 8 % [facility] % Eos 1 % [facility] % Baso 0 % [facility] # Neutros 6.67 (H) 1.56 - 6.13 K/L [facility] # Lymphs 0.46 (L) 1.18 - 3.74 K/L [facility] # Monos 0.64 (H) 0.24 - 0.36 K/L [facility] # Eos 0.06 0.04 - 0.36 K/L [facility] # Baso 0.02 0.01 - 0.08 K/L [facility] Immature 1 0 - 1 % [facility] Specimen Blood Performing Organization Address City/State/Zipcode Phone Number [facility] [address] [place] [address] CENTER ECHOCARDIOGRAM REPORT - SCAN (06/30/2018 9:22 PM CDT) Narrative Performed At 2D Echo W/Doppler(CW/PW/Color) (06/30/2018 8:36 AM CDT) Ejection Fraction [facility] ECHO [facility] Specimen Narrative Performed At Transthoracic Echocardiography Report (TTE) [facility] BNI VideoESSON [facility] Demographics Patient Name DARJEMAL, Date of Study 06/30/2018 DURGA [id number] GenderFemale Visit Number [id number] Black [id number] Room Number 2C52 Number Date of Birth1945Referring Physician Malathi Flanagan Age72 year(s)Chef Concierge Fela Antunez RDCS AnalystIzolda N. InterpretingJuan Plana Smiley, MD [place] Physician Procedure Type of Study [...] Study 06/30/2018 DURGA Gender Female Visit Number [id number] Race Black Room Number 2C52 Number Date of 1945 Referring Physician Malathi Flanagan Age 72 year(s) Chef Concierge Fela Antunez, RDCS Restrooms Or Lounges Maid Khari Florence Interpreting MD Jessika Abel Physician [...] TR Gradient: 54.51 mmHg Performing Organization Address [facility] Phone Number [facility] ECHO HEARTLAB MKCKESSON CPACS Lactic Acid, Arterial (06/30/2018 4:33 AM CDT)Only the most recent of2 resultswithin the time period is included. Lactate, Art 1.0 0.5 - 2.2 mmol/L [facility] Specimen Blood, Arterial Performing Organization Address [facility] Phone Number [address] [address] CENTER B-type Natriuretic Factor (BNP) (06/30/2018 3:10 AM CDT)Only the most recent of3 resultswithin the time period is included. BNP 14,363 (H) 0 - 100 pg/mL [facility] Specimen Blood Performing Organization Address [facility] Phone Number [address] [address] CENTER Prepare RBC (06/30/2018 1:27 AM CDT) CROSSMATCH COMPATIBLE SAFETRACE TX Unit ABO A Pos SAFETRACE TX UNIT NUMBER [id number] SAFETRACE TX Status RETURNED FROM ISSUE SAFETRACE TX Blood Bank Product RED BLOOD CELLS SAFETRACE TX PRODUCT CODE [id number] SAFETRACE TX CROSSMATCH COMPATIBLE SAFETRACE TX Unit ABO A Pos SAFETRACE TX UNIT NUMBER [id number] SAFETRACE TX Status RETURNED FROM ISSUE SAFETRACE TX Blood Bank Product RED BLOOD CELLS SAFETRACE TX PRODUCT CODE [id number] SAFETRACE TX CROSSMATCH COMPATIBLE SAFETRACE TX Unit ABO A Pos SAFETRACE TX UNIT NUMBER [id number] SAFETRACE TX Status RETURNED FROM ISSUE SAFETRACE TX Blood Bank Product RED BLOOD CELLS SAFETRACE TX PRODUCT CODE [id number] SAFETRACE TX CROSSMATCH COMPATIBLE SAFETRACE TX Unit ABO A Pos SAFETRACE TX UNIT NUMBER [id number] SAFETRACE TX Status RETURNED FROM ISSUE SAFETRACE TX Blood Bank Product RED BLOOD CELLS SAFETRACE TX PRODUCT CODE [id number] SAFETRACE TX Specimen Performing Organization Address [facility] Phone Number SAFETRACE TX POC ACTIVATED CLOTTING TIME (06/30/2018 12:52 AM CDT)Only the most recent of4 resultswithin the time period is included. Activated Clotting Time 147Comment: TESTED AT sec [address] [address] Specimen Blood Performing Organization Address [facility] Phone Number [address] [address] CENTER Potassium-Stat Lab (06/29/2018 11:07 PM CDT) Potassium 4.4 3.6 - 5.5 meq/L [facility] Specimen Blood, Arterial Performing Organization Address [facility] Phone Number [address] [address] CENTER Sodium Na-Stat Lab (06/29/2018 11:07 PM CDT) Sodium 137 135 - 148 meq/L [facility] Specimen Blood, Arterial Performing Organization Address [facility] Phone Number [address] [address] [place] Glucose-Stat Lab (06/29/2018 11:07 PM CDT) Glucose 97 70 - 110 mg/dL [facility] Specimen Blood, Arterial Performing Organization Address [facility] Phone Number [address] [phone] [place] HGB/HCT (H&H)-Stat Lab (06/29/2018 11:07 PM CDT) Hemoglobin 10.7 (L) 12.0 - 15.0 g/dL [facility] Hematocrit 31.0 (L) 36.0 - 45.0 % [facility] Specimen Blood, Arterial Performing Organization Address [facility] Phone Number [address] [address] [place] Filter Ionized Calcium (06/29/2018 11:07 PM CDT) Filter Ionized Calcium 1.14 mmol/L [facility] Specimen Blood Narrative Performed At Reference Range: No Normals [facility] Performing Organization Address [facility] Phone Number [address] [address] [place] CONOR (06/29/2018 10:41 PM CDT) Narrative Performed [...] impaired Pre Intervention Summary: Post Intervention Summary: after 08/17/2017 Insurance Payer Benefit Plan / Subscriber ID Type Phone Address Group [employer]ET[employer] - AETNA MEDICARE xxxxxxxx [facility] [phone] [address] MEDICARE MGD HMO POS [id number] [place] [address] Advance Directives For more information, please contact:[address] [phone] Code Status Date Activated Date Inactivated Comments Full Code 06/29/2018 8:48 PM 07/22/2018 8:31 PM This code status was determined by: Patient Full Code 07/18/2017 10:01 AM 08/09/2017 4:37 PM This code status was determined by: Patient Full Code 06/11/2016 8:17 PM 06/15/2016 3:58 PM This code status was determined by: Patient
--- OUTSIDE RECORDS SUMMARY | 2018-08-18 12:34 | XMS REPORT ---
:1945 Author Organization [facility] Address [address] [place] [address] [address]. [address] [place] [address] Care Team Providers Name Role Phone DELILAH LANDERSO Unavailable Unavailable BRITTNEY CLINTON Unavailable Unavailable DEDRA [...] (BEAKER) (test 221 mg/dL 70-110 TESTED AT [address] bmpg=3817) [facility] [address] POCT-GLUCOSE [id number] 09:00:00 Test Item Value Reference Range Comments POC-GLUCOSE METER (BEAKER) 135 mg/dL 70-110 TESTED AT [address] (test wplg=0638) [facility] [address] RAD, CHEST, 1 VIEW, NON [id number] 08:57:00Reason for exam:->post opShould this be performed at the bedside?->YesFINAL REPORT RAD, CHEST, 1 VIEW, NON DEPT INDICATION: post op COMPARISON: Prior day' s exam FINDINGS: Portable frontal view of the chest. IMPRESSION: Support Lines: Stable. Lungs and pleura: Unchanged airspace and pleural opacities. No pneumothorax.Heart and mediastinum: Stable contours. Stable surgical changes.Additional findings: None. Signed: Trey Robles Verified Date/Time: 07/22/2018 08:57:17 Reading Location: [address] Neuro Reading Room Electronicallysigned by: TREY ROBLES MD on 07/22/2018 08:57 [id number] 07:51:00 Test Item Value Reference Range Comments PHOSPHORUS (BEAKER) (test rifd=418) 3.9 mg/dL 2.3-4.7 [id number] 07:51:00 Test Item Value Reference Range Comments MAGNESIUM (BEAKER) (test hfag=014) 1.7 mg/dL 1.6-2.6 BASIC METABOLIC [id number] 07:51:00 Test Item Value Reference Range Comments SODIUM (BEAKER) (test 139 meq/L 136-145 dngw=024) POTASSIUM (BEAKER) (test 4.4 meq/L 3.5-5.1 xvwz=981) CHLORIDE (BEAKER) (test 102 meq/L 98-107 xuvi=187) CO2 (BEAKER) (test 30 meq/L 22-29 vxqh=292) BLOOD UREA NITROGEN 23 mg/dL 7-21 (BEAKER) (test ithc=169) CREATININE (BEAKER) (test 1.40 mg/dL 0.57-1.25 hefp=017) GLUCOSE RANDOM (BEAKER) 139 mg/dL 70-105 (test grle=580) CALCIUM (BEAKER) (test 8.8 mg/dL 8.4-10.2 cghz=689) EGFR (BEAKER) (test 45 mL/min/1.73 sq m ESTIMATED GFR IS NOT vxtt=7198) ACCURATE CREATININE CLEARANCE IN PREDICTING GLOMERULAR FILTRATION RATE. ESTIMATED GFR IS NOT APPLICABLE FOR DIALYSIS PATIENTS. [id number] 05:36:00 Test Item Value Reference Range Comments PARTIAL THROMBOPLASTIN TIME (BEAKER) (test 44.5 seconds 22.5-36.0 roth=689) CBC (HEMOGRAM ONLY)2018-07-22 05:24:00 Test Item Value Reference Range Comments WHITE BLOOD CELL COUNT (BEAKER) (test xvaa=590) 6.6 K/ L 3.5-10.5 RED BLOOD CELL COUNT (BEAKER) (test ouxh=070) 2.45 M/ L 3.93-5.22 HEMOGLOBIN (BEAKER) (test euul=248) 7.7 GM/DL 11.2-15.7 HEMATOCRIT (BEAKER) (test fqwg=460) 26.1 % 34.1-44.9 MEAN CORPUSCULAR VOLUME (BEAKER) (test ssch=415) 106.5 fL 79.4-94.8 MEAN CORPUSCULAR HEMOGLOBIN (BEAKER) (test 31.4 pg 25.6-32.2 kzph=383) MEAN CORPUSCULAR HEMOGLOBIN CONC (BEAKER) (test 29.5 GM/DL 32.2-35.5 qgke=903) RED CELL DISTRIBUTION WIDTH (BEAKER) (test 18.0 % 11.7-14.4 cbsx=501) PLATELET COUNT (BEAKER) (test wmnl=739) 227 K/CU MM 150-450 MEAN PLATELET VOLUME (BEAKER) (test hkel=238) 10.0 fL 9.4-12.3 NUCLEATED RED BLOOD CELLS (BEAKER) (test 0 /100 WBC 0-0 godj=270) POCT-GLUCOSE [id number] 21:36:00 Test Item Value Reference Range Comments POC-GLUCOSE METER (BEAKER) 283 mg/dL 70-110 TESTED AT [address] (test iyiu=8412) [place] [id number] POCT-GLUCOSE [id number] 18:26:00 Test Item Value Reference Range Comments POC-GLUCOSE METER (BEAKER) 123 mg/dL 70-110 TESTED AT [address] (test lgvb=7558) [place] [id number] POCT-GLUCOSE [id number] 14:04:00 Test Item Value Reference Range Comments POC-GLUCOSE METER (BEAKER) 152 mg/dL 70-110 TESTED AT [address] (test cvds=6436) [place] [id number] POCT-GLUCOSE [id number] 12:52:00 Test Item Value Reference Range Comments POC-GLUCOSE METER (BEAKER) 228 mg/dL 70-110 TESTED AT [address] (test hkwg=6004) [facility] [address] RAD, CHEST, 1 VIEW, NON [id number] 09:40:00Reason for exam:->post opShould this be performed at the bedside?->YesFINAL REPORT Comparison: 07/20/2018 TECHNIQUE: Single view of the chest FINDINGS: There are nonspecific prominent interstitial markings bilaterally. Trace pleural effusions are seen. No gross new lung parenchymal changes. Cardiac silhouette is enlarged. Thoracic aortic stent grafts noted. Right-sided PICC line is stable. Signed: Olayinka Hampton MDReport Verified Date/Time: 07/21/2018 09: 40:18 Reading Location: [facility] Radiology Reading Room POCT-GLUCOSE [id number] 09:10: 00 Test Item Value Reference Range Comments POC-GLUCOSE METER (BEAKER) 239 mg/dL 70-110 TESTED AT [facility] [address] [facility] (test fskf=0775) [facility] [address] [id number] 06:51:00 Test Item Value Reference Range Comments PHOSPHORUS (BEAKER) (test urpg=116) 3.4 mg/dL 2.3-4.7 [id number] 06:51:00 Test Item Value Reference Range Comments MAGNESIUM (BEAKER) (test cube=307) 1.8 mg/dL 1.6-2.6 BASIC METABOLIC [id number] 06:51:00 Test Item Value Reference Range Comments SODIUM (BEAKER) (test 137 meq/L 136-145 puhi=360) POTASSIUM (BEAKER) (test 4.4 meq/L 3.5-5.1 kpxu=982) CHLORIDE (BEAKER) (test 100 meq/L 98-107 ewlu=165) CO2 (BEAKER) (test 31 meq/L 22-29 bbas=309) BLOOD UREA NITROGEN 23 mg/dL 7-21 (BEAKER) (test pclo=778) CREATININE (BEAKER) (test 1.40 mg/dL 0.57-1.25 hzvl=889) GLUCOSE RANDOM (BEAKER) 146 mg/dL 70-105 (test bdzv=356) CALCIUM (BEAKER) (test 9.2 mg/dL 8.4-10.2 ugse=227) EGFR (BEAKER) (test 45 mL/min/1.73 sq m ESTIMATED GFR IS NOT qwil=9636) ACCURATE CREATININE CLEARANCE IN PREDICTING GLOMERULAR FILTRATION RATE. ESTIMATED GFR IS NOT APPLICABLE FOR DIALYSIS PATIENTS. [id number] 06:47:00 Test Item Value Reference Range Comments PARTIAL THROMBOPLASTIN TIME (BEAKER) (test 51.7 seconds 22.5-36.0 frij=920) CBC (HEMOGRAM ONLY)2018-07-21 06:28:00 Test Item Value Reference Range Comments WHITE BLOOD CELL COUNT (BEAKER) (test cxxy=507) 5.4 K/ L 3.5-10.5 RED BLOOD CELL COUNT (BEAKER) (test uavk=065) 2.66 M/ L 3.93-5.22 HEMOGLOBIN (BEAKER) (test qerb=744) 8.2 GM/DL 11.2-15.7 HEMATOCRIT (BEAKER) (test imyx=891) 28.3 % 34.1-44.9 MEAN CORPUSCULAR VOLUME (BEAKER) (test qtpk=547) 106.4 fL 79.4-94.8 MEAN CORPUSCULAR HEMOGLOBIN (BEAKER) (test 30.8 pg 25.6-32.2 awef=962) MEAN CORPUSCULAR HEMOGLOBIN CONC (BEAKER) (test 29.0 GM/DL 32.2-35.5 drnv=615) RED CELL DISTRIBUTION WIDTH (BEAKER) (test 18.3 % 11.7-14.4 iota=228) PLATELET COUNT (BEAKER) (test iiwd=098) 211 K/CU MM 150-450 MEAN PLATELET VOLUME (BEAKER) (test ycqa=529) 10.3 fL 9.4-12.3 NUCLEATED RED BLOOD CELLS (BEAKER) (test 0 /100 WBC 0-0 qmqb=654) POCT-GLUCOSE [id number] 21:18:00 Test Item Value Reference Range Comments POC-GLUCOSE METER (BEAKER) 245 mg/dL 70-110 TESTED AT [address] (test nhxe=6607) [place] [id number] POCT-GLUCOSE [id number] 18:12:00 Test Item Value Reference Range Comments POC-GLUCOSE METER (BEAKER) 158 mg/dL 70-110 TESTED AT [address] (test izdn=3253) [facility] [address] POCT-GLUCOSE [id number] 12:46:00 Test Item Value Reference Range Comments POC-GLUCOSE METER (BEAKER) 178 mg/dL 70-110 TESTED AT [address] (test pczs=9960) [facility] [address] RAD, CHEST, 1 VIEW, NON [id number] 08:43:00Reason for exam:->post opShould this be performed at the bedside?->YesFINAL REPORT Chest one view. Clinical history: post op Comparison: 2018Discussion: A frontal chest is provided. Cardiomediastinal contours are unchanged. Lines and tubesare in stable position. Stable appearance of vascular congestion and interstitial edema. Small bilateral pleural effusions. No pneumothorax. Signed: Morgan Cheng MDReport Verified Date/Time: 07/20/2018 08:43 :10 Reading Location: [facility] Radiology Reading Room POCT-GLUCOSE [id number] 08:05:00 Test Item Value Reference Range Comments POC-GLUCOSE METER (BEAKER) 114 mg/dL 70-110 TESTED AT [facility] [address] [facility] (test gugz=0493) [facility] [address] [id number] 06:55:00 Test Item Value Reference Range Comments PHOSPHORUS (BEAKER) (test wfvx=715) 3.4 mg/dL 2.3-4.7 [id number] 06:55:00 Test Item Value Reference Range Comments MAGNESIUM (BEAKER) (test xfti=065) 1.5 mg/dL 1.6-2.6 BASIC METABOLIC [id number] 06:55:00 Test Item Value Reference Range Comments SODIUM (BEAKER) (test 137 meq/L 136-145 fqhn=868) POTASSIUM (BEAKER) (test 4.4 meq/L 3.5-5.1 iwob=004) CHLORIDE (BEAKER) (test 101 meq/L 98-107 bstd=923) CO2 (BEAKER) (test 27 meq/L 22-29 ryrh=441) BLOOD UREA NITROGEN 23 mg/dL 7-21 (BEAKER) (test ymmz=827) CREATININE (BEAKER) (test 1.28 mg/dL 0.57-1.25 yaev=598) GLUCOSE RANDOM (BEAKER) 150 mg/dL 70-105 (test ennb=983) CALCIUM (BEAKER) (test 9.0 mg/dL 8.4-10.2 cjmi=516) EGFR (BEAKER) (test 50 mL/min/1.73 sq m ESTIMATED GFR IS NOT jqnv=2354) ACCURATE CREATININE CLEARANCE IN PREDICTING GLOMERULAR FILTRATION RATE. ESTIMATED GFR IS NOT APPLICABLE FOR DIALYSIS PATIENTS. [id number] 06:28:00 Test Item Value Reference Range Comments PARTIAL THROMBOPLASTIN TIME (BEAKER) (test 44.5 seconds 22.5-36.0 ggiq=977) CBC (HEMOGRAM ONLY)2018-07-20 06:19:00 Test Item Value Reference Range Comments WHITE BLOOD CELL COUNT (BEAKER) (test jnrj=773) 5.5 K/ L 3.5-10.5 RED BLOOD CELL COUNT (BEAKER) (test jgbn=151) 2.58 M/ L 3.93-5.22 HEMOGLOBIN (BEAKER) (test pqnq=383) 7.9 GM/DL 11.2-15.7 HEMATOCRIT (BEAKER) (test dkxu=638) 27.1 % 34.1-44.9 MEAN CORPUSCULAR VOLUME (BEAKER) (test ptgl=309) 105.0 fL 79.4-94.8 MEAN CORPUSCULAR HEMOGLOBIN (BEAKER) (test 30.6 pg 25.6-32.2 gnec=552) MEAN CORPUSCULAR HEMOGLOBIN CONC (BEAKER) (test 29.2 GM/DL 32.2-35.5 wszx=254) RED CELL DISTRIBUTION WIDTH (BEAKER) (test 18.5 % 11.7-14.4 yvyd=616) PLATELET COUNT (BEAKER) (test aqzq=505) 189 K/CU MM 150-450 MEAN PLATELET VOLUME (BEAKER) (test mwik=644) 9.9 fL 9.4-12.3 NUCLEATED RED BLOOD CELLS (BEAKER) (test 0 /100 WBC 0-0 nobw=351) POCT-GLUCOSE [id number] 00:43:00 Test Item Value Reference Range Comments POC-GLUCOSE METER (BEAKER) 135 mg/dL 70-110 TESTED AT [address] (test lhks=9397) [facility] [address] POCT-GLUCOSE [id number] 21:19:00 Test Item Value Reference Range Comments POC-GLUCOSE METER (BEAKER) 284 mg/dL 70-110 TESTED AT [address] (test vfbs=4249) [facility] [address] POCT-GLUCOSE [id number] 17:54:00 Test Item Value Reference Range Comments POC-GLUCOSE METER (BEAKER) 146 mg/dL 70-110 TESTED AT [facility] [address] [facility] (test mtgy=6631) [facility] [address] POCT-GLUCOSE [id number] 14:15:00 Test Item Value Reference Range Comments POC-GLUCOSE METER (BEAKER) 230 mg/dL 70-110 TESTED AT [address] (test tyou=6019) [facility] [address] RAD, CHEST, 1 VIEW, NON [id number] 08:30:00Reason for exam:->post opShould this be performed [...] MDReport Verified Date/Time: 07/19/2018 08:30:21 Reading Location: [facility] Radiology Reading Room POCT-GLUCOSE [id number] 07:30:00 Test Item Value Reference Range Comments POC-GLUCOSE METER (BEAKER) 177 mg/dL 70-110 TESTED AT [address] (test tdat=7998) [facility] [address] [id number] 05:20:00 Test Item Value Reference Range Comments PHOSPHORUS (BEAKER) (test tgke=103) 3.5 mg/dL 2.3-4.7 [id number] 05:20:00 Test Item Value Reference Range Comments MAGNESIUM (BEAKER) (test kptr=052) 1.8 mg/dL 1.6-2.6 BASIC METABOLIC [id number] 05:20:00 Test Item Value Reference Range Comments SODIUM (BEAKER) (test 142 meq/L 136-145 sglc=771) POTASSIUM (BEAKER) (test 4.5 meq/L 3.5-5.1 gtwh=170) CHLORIDE (BEAKER) (test 107 meq/L 98-107 eczi=093) CO2 (BEAKER) (test 31 meq/L 22-29 xpgl=698) BLOOD UREA NITROGEN 25 mg/dL 7-21 (BEAKER) (test llct=450) CREATININE (BEAKER) (test 1.35 mg/dL 0.57-1.25 ilrw=424) GLUCOSE RANDOM (BEAKER) 165 mg/dL 70-105 (test tgkz=299) CALCIUM (BEAKER) (test 9.1 mg/dL 8.4-10.2 myau=394) EGFR (BEAKER) (test 47 mL/min/1.73 sq m ESTIMATED GFR IS NOT loyt=5295) ACCURATE CREATININE CLEARANCE IN PREDICTING GLOMERULAR FILTRATION RATE. ESTIMATED GFR IS NOT APPLICABLE FOR DIALYSIS PATIENTS. [id number] 05:17:00 Test Item Value Reference Range Comments PARTIAL THROMBOPLASTIN TIME (BEAKER) (test 44.9 seconds 22.5-36.0 mvcj=771) PROTHROMBIN [id number] 05:16:00 Test Item Value Reference Range Comments PROTIME (BEAKER) (test xbjc=306) 13.9 seconds 11.7-14.7 INR (BEAKER) (test yfjo=148) 1.1 <=5.9 RECOMMENDED COUMADIN/WARFARIN INR THERAPY RANGESSTANDARD DOSE: 2.0 - 3.0 Includes: PROPHYLAXIS forvenous thrombosis, systemic embolization; TREATMENT for venous thrombosis and/or pulmonary embolus.HIGH RISK: Target INR is 2.5-3.5 for patients with mechanical heart valves.CBC (HEMOGRAM ONLY)2018-07-19 05:02:00 Test Item Value Reference Range Comments WHITE BLOOD CELL COUNT (BEAKER) (test iimn=116) 6.3 K/ L 3.5-10.5 RED BLOOD CELL COUNT (BEAKER) (test vtyw=434) 2.59 M/ L 3.93-5.22 HEMOGLOBIN (BEAKER) (test dkaf=819) 8.1 GM/DL 11.2-15.7 HEMATOCRIT (BEAKER) (test ywpd=866) 27.6 % 34.1-44.9 MEAN CORPUSCULAR VOLUME (BEAKER) (test lflo=812) 106.6 fL 79.4-94.8 MEAN CORPUSCULAR HEMOGLOBIN (BEAKER) (test 31.3 pg 25.6-32.2 ojjd=673) MEAN CORPUSCULAR HEMOGLOBIN CONC (BEAKER) (test 29.3 GM/DL 32.2-35.5 ihts=282) RED CELL DISTRIBUTION WIDTH (BEAKER) (test 18.6 % 11.7-14.4 rmml=169) PLATELET COUNT (BEAKER) (test xsto=531) 186 K/CU MM 150-450 MEAN PLATELET VOLUME (BEAKER) (test owvn=262) 9.7 fL 9.4-12.3 NUCLEATED RED BLOOD CELLS (BEAKER) (test 0 /100 WBC 0-0 pdpz=596) POCT-GLUCOSE [id number] 23:14:00 Test Item Value Reference Range Comments POC-GLUCOSE METER (BEAKER) 173 mg/dL 70-110 TESTED AT [address] (test nuya=7975) [facility] [address] POCT-GLUCOSE [id number] 21:47:00 Test Item Value Reference Range Comments POC-GLUCOSE METER (BEAKER) 237 mg/dL 70-110 TESTED AT [address] (test kryk=5496) [facility] [address] POCT-GLUCOSE [id number] 18:16:00 Test Item Value Reference Range Comments POC-GLUCOSE METER (BEAKER) 234 mg/dL 70-110 TESTED AT [address] (test jwot=7946) [facility] [address] POCT-GLUCOSE [id number] 08:34:00 Test Item Value Reference Range Comments POC-GLUCOSE METER (BEAKER) 127 mg/dL 70-110 TESTED AT [address] (test xaut=9089) [facility] [address] RAD, CHEST, 1 VIEW, NON [id number] 08:16:00Reason for exam:->post opShould this be performed at the bedside?->YesFINAL REPORT Chest one view. Clinical history: post op Comparison: 2018Discussion: A frontal chest is provided. Cardiac silhouette is enlarged. Aortic stent is again noted. There is mild vascular congestion and interstitial edema. Streaky bibasilar atelectasis or consolidation similar to the prior exam. Small right effusion. No pneumothorax. Signed: Morgan Cheng Verified Date/Time: 07/18/2018 08:16:56 Reading Location: [facility] Radiology Reading Room 08: 16 AMCBC (HEMOGRAM ONLY)2018-07-18 04:48:00 Test Item Value Reference Range Comments WHITE BLOOD CELL COUNT (BEAKER) (test hdaa=200) 7.8 K/ L 3.5-10.5 RED BLOOD CELL COUNT (BEAKER) (test icdd=741) 2.64 M/ L 3.93-5.22 HEMOGLOBIN (BEAKER) (test sqwk=438) 8.1 GM/DL 11.2-15.7 HEMATOCRIT (BEAKER) (test crmr=485) 28.1 % 34.1-44.9 MEAN CORPUSCULAR VOLUME (BEAKER) (test webm=659) 106.4 fL 79.4-94.8 MEAN CORPUSCULAR HEMOGLOBIN (BEAKER) (test 30.7 pg 25.6-32.2 wsvy=001) MEAN CORPUSCULAR HEMOGLOBIN CONC (BEAKER) (test 28.8 GM/DL 32.2-35.5 txjr=961) RED CELL DISTRIBUTION WIDTH (BEAKER) (test 18.9 % 11.7-14.4 nsly=998) PLATELET COUNT (BEAKER) (test cfdo=220) 197 K/CU MM 150-450 MEAN PLATELET VOLUME (BEAKER) (test vuzd=537) 10.2 fL 9.4-12.3 NUCLEATED RED BLOOD CELLS (BEAKER) (test 0 /100 WBC 0-0 nrsm=716) [id number] 04:40:00 Test Item Value Reference Range Comments PHOSPHORUS (BEAKER) (test homw=510) 3.6 mg/dL 2.3-4.7 [id number] 04:40:00 Test Item Value Reference Range Comments MAGNESIUM (BEAKER) (test himl=982) 1.8 mg/dL 1.6-2.6 BASIC METABOLIC [id number] 04:40:00 Test Item Value Reference Range Comments SODIUM (BEAKER) (test 140 meq/L 136-145 kfib=445) POTASSIUM (BEAKER) (test 4.5 meq/L 3.5-5.1 nvsg=851) CHLORIDE (BEAKER) (test 106 meq/L 98-107 vpgo=866) CO2 (BEAKER) (test 26 meq/L 22-29 yati=257) BLOOD UREA NITROGEN 23 mg/dL 7-21 (BEAKER) (test uzci=883) CREATININE (BEAKER) (test 1.34 mg/dL 0.57-1.25 dzhv=678) GLUCOSE RANDOM (BEAKER) 105 mg/dL 70-105 (test voof=020) CALCIUM (BEAKER) (test 9.1 mg/dL 8.4-10.2 nwdh=903) EGFR (BEAKER) (test 47 mL/min/1.73 sq m ESTIMATED GFR IS NOT dfdr=6755) ACCURATE CREATININE CLEARANCE IN PREDICTING GLOMERULAR FILTRATION RATE. ESTIMATED GFR IS NOT APPLICABLE FOR DIALYSIS PATIENTS. [id number] 04:22:00 Test Item Value Reference Range Comments PARTIAL THROMBOPLASTIN TIME (BEAKER) (test 56.8 seconds 22.5-36.0 fuxv=107) PROTHROMBIN [id number] 04:20:00 Test Item Value Reference Range Comments PROTIME (BEAKER) (test gdxg=178) 13.9 seconds 11.7-14.7 INR (BEAKER) (test sbuy=546) 1.0 <=5.9 RECOMMENDED COUMADIN/WARFARIN INR THERAPY RANGESSTANDARD DOSE: 2.0 - 3.0 Includes: PROPHYLAXIS forvenous thrombosis, systemic embolization; TREATMENT for venous thrombosis and/or pulmonary embolus.HIGH RISK: Target INR is 2.5-3.5 for patients with mechanical heart valves.POCT-GLUCOSE [id number] 20:54:00 Test Item Value Reference Range Comments POC-GLUCOSE METER (BEAKER) 311 mg/dL 70-110 Patient on insulin Drip/TESTED (test sgjx=5777) AT [address] [address] POCT-GLUCOSE [id number] 18:21:00 Test Item Value Reference Range Comments POC-GLUCOSE METER (BEAKER) 186 mg/dL 70-110 TESTED AT [address] (test aeti=3158) [facility] [address] POCT-GLUCOSE [id number] 13:16:00 Test Item Value Reference Range Comments POC-GLUCOSE METER (BEAKER) 153 mg/dL 70-110 TESTED AT [address] (test punp=9007) [facility] [address] POCT-GLUCOSE [id number] 09:26:00 Test Item Value Reference Range Comments POC-GLUCOSE METER (BEAKER) 128 mg/dL 70-110 TESTED AT [facility] [address] (test rqvh=2200) [facility] [address] RAD, CHEST, 1 VIEW, NON [id number] 07:39:00Reason for exam:->post opShould this be performed [...] compressive atelectasisor developing pneumonitis. Signed: Azul Sam MDReport Verified Date/Time: 2018 07:39:00 Reading Location: [facility] Radiology Reading Room Electronically signed by: AZUL SAM M.D.on 07/17/2018 07:39 [id number] 06:22:00 Test Item Value Reference Range Comments PHOSPHORUS (BEAKER) (test kzji=677) 3.6 mg/dL 2.3-4.7 [id number] 06:22:00 Test Item Value Reference Range Comments MAGNESIUM (BEAKER) (test snms=691) 1.9 mg/dL 1.6-2.6 BASIC METABOLIC [id number] 06:22:00 Test Item Value Reference Range Comments SODIUM (BEAKER) (test 142 meq/L 136-145 wkpi=652) POTASSIUM (BEAKER) (test 4.6 meq/L 3.5-5.1 hztd=964) CHLORIDE (BEAKER) (test 106 meq/L 98-107 adjq=156) CO2 (BEAKER) (test 30 meq/L 22-29 jevp=280) BLOOD UREA NITROGEN 23 mg/dL 7-21 (BEAKER) (test veft=668) CREATININE (BEAKER) (test 1.31 mg/dL 0.57-1.25 rudi=948) GLUCOSE RANDOM (BEAKER) 88 mg/dL 70-105 (test xxuk=679) CALCIUM (BEAKER) (test 8.9 mg/dL 8.4-10.2 wjcl=695) EGFR (BEAKER) (test 49 mL/min/1.73 sq m ESTIMATED GFR IS NOT eewq=7346) ACCURATE CREATININE CLEARANCE IN PREDICTING GLOMERULAR FILTRATION RATE. ESTIMATED GFR IS NOT APPLICABLE FOR DIALYSIS PATIENTS. [id number] 05:10:00 Test Item Value Reference Range Comments PARTIAL THROMBOPLASTIN TIME (BEAKER) (test 52.0 seconds 22.5-36.0 puaf=330) PROTHROMBIN TIME/[id number] 05:09:00 Test Item Value Reference Range Comments PROTIME (BEAKER) (test dzwl=975) 14.3 seconds 11.7-14.7 INR (BEAKER) (test kqiz=186) 1.1 <=5.9 RECOMMENDED COUMADIN/WARFARIN INR THERAPY RANGESSTANDARD DOSE: 2.0 - 3.0 Includes: PROPHYLAXIS forvenous thrombosis, systemic embolization; TREATMENT for venous thrombosis and/or pulmonary embolus.HIGH RISK: Target INR is 2.5-3.5 for patients with mechanical heart valves.CBC (HEMOGRAM ONLY)2018-07-17 04:55:00 Test Item Value Reference Range Comments WHITE BLOOD CELL COUNT (BEAKER) (test sefa=688) 7.5 K/ L 3.5-10.5 RED BLOOD CELL COUNT (BEAKER) (test ksth=626) 2.63 M/ L 3.93-5.22 HEMOGLOBIN (BEAKER) (test cumu=409) 8.1 GM/DL 11.2-15.7 HEMATOCRIT (BEAKER) (test obgi=904) 27.7 % 34.1-44.9 MEAN CORPUSCULAR VOLUME (BEAKER) (test nylf=659) 105.3 fL 79.4-94.8 MEAN CORPUSCULAR HEMOGLOBIN (BEAKER) (test 30.8 pg 25.6-32.2 nzhi=683) MEAN CORPUSCULAR HEMOGLOBIN CONC (BEAKER) (test 29.2 GM/DL 32.2-35.5 xmyl=533) RED CELL DISTRIBUTION WIDTH (BEAKER) (test 18.9 % 11.7-14.4 rhdv=507) PLATELET COUNT (BEAKER) (test rtvo=982) 215 K/CU MM 150-450 MEAN PLATELET VOLUME (BEAKER) (test drqd=578) 10.2 fL 9.4-12.3 NUCLEATED RED BLOOD CELLS (BEAKER) (test 0 /100 WBC 0-0 nrsp=417) POCT-GLUCOSE [id number] 21:30:00 Test Item Value Reference Range Comments POC-GLUCOSE METER (BEAKER) 217 mg/dL 70-110 TESTED AT [address] (test brmx=0858) [facility] [id number] POCT-GLUCOSE [id number] 18:00:00 Test Item Value Reference Range Comments POC-GLUCOSE METER (BEAKER) 192 mg/dL 70-110 TESTED AT [address] (test tzqb=5551) [facility] [id number] POCT-GLUCOSE [id number] 14:32:00 Test Item Value Reference Range Comments POC-GLUCOSE METER (BEAKER) 203 mg/dL 70-110 TESTED AT [address] (test omcl=7847) [facility] [address] POCT-GLUCOSE [id number] 09:41:00 Test Item Value Reference Range Comments POC-GLUCOSE METER (BEAKER) 113 mg/dL 70-110 TESTED AT [address] (test fxrg=4038) [facility] [address] [id number] 08:49:00 Test Item Value Reference Range Comments PHOSPHORUS (BEAKER) (test tikk=147) 3.9 mg/dL 2.3-4.7 [id number] 08:49:00 Test Item Value Reference Range Comments MAGNESIUM (BEAKER) (test liev=324) 2.0 mg/dL 1.6-2.6 BASIC METABOLIC [id number] 08:49:00 Test Item Value Reference Range Comments SODIUM (BEAKER) (test 142 meq/L 136-145 diau=343) POTASSIUM (BEAKER) (test 4.5 meq/L 3.5-5.1 efhb=900) CHLORIDE (BEAKER) (test 105 meq/L 98-107 gosf=481) CO2 (BEAKER) (test 30 meq/L 22-29 ieel=660) BLOOD UREA NITROGEN 24 mg/dL 7-21 (BEAKER) (test jsti=978) CREATININE (BEAKER) (test 1.25 mg/dL 0.57-1.25 uljx=692) GLUCOSE RANDOM (BEAKER) 80 mg/dL 70-105 (test uzcq=452) CALCIUM (BEAKER) (test 8.8 mg/dL 8.4-10.2 bmlv=091) EGFR (BEAKER) (test 51 mL/min/1.73 sq m ESTIMATED GFR IS NOT xvng=0747) ACCURATE CREATININE CLEARANCE IN PREDICTING GLOMERULAR FILTRATION RATE. ESTIMATED GFR IS NOT APPLICABLE FOR DIALYSIS PATIENTS. RAD, CHEST, 1 VIEW, NON [id number] 08:09:00Reason for exam:->post opShould this be performed [...] Lopez Verified Date/Time: 07/16/2018 08:09:34 Reading Location: [address] Body Reading Room 08: 09 AMPROTHROMBIN [id number] 05:46:00 Test Item Value Reference Range Comments PROTIME (BEAKER) (test loeh=155) 14.0 seconds 11.7-14.7 INR (BEAKER) (test isvs=313) 1.1 <=5.9 RECOMMENDED COUMADIN/WARFARIN INR THERAPY RANGESSTANDARD DOSE: 2.0 - 3.0 Includes: PROPHYLAXIS forvenous thrombosis, systemic embolization; TREATMENT for venous thrombosis and/or pulmonary embolus.HIGH RISK: Target INR is 2.5-3.5 for patients with mechanical heart valves.[id number] 05:46:00 Test Item Value Reference Range Comments PARTIAL THROMBOPLASTIN TIME (BEAKER) (test 54.5 seconds 22.5-36.0 vpri=050) CBC (HEMOGRAM ONLY)2018-07-16 05:33:00 Test Item Value Reference Range Comments WHITE BLOOD CELL COUNT (BEAKER) (test vdhd=573) 6.6 K/ L 3.5-10.5 RED BLOOD CELL COUNT (BEAKER) (test wwtv=143) 2.75 M/ L 3.93-5.22 HEMOGLOBIN (BEAKER) (test xlun=031) 8.5 GM/DL 11.2-15.7 HEMATOCRIT (BEAKER) (test hcxv=521) 28.5 % 34.1-44.9 MEAN CORPUSCULAR VOLUME (BEAKER) (test ukzq=752) 103.6 fL 79.4-94.8 MEAN CORPUSCULAR HEMOGLOBIN (BEAKER) (test 30.9 pg 25.6-32.2 rohe=935) MEAN CORPUSCULAR HEMOGLOBIN CONC (BEAKER) (test 29.8 GM/DL 32.2-35.5 wrhb=378) RED CELL DISTRIBUTION WIDTH (BEAKER) (test 19.1 % 11.7-14.4 gwbo=888) PLATELET COUNT (BEAKER) (test zbhx=885) 240 K/CU MM 150-450 MEAN PLATELET VOLUME (BEAKER) (test xmsk=995) 10.1 fL 9.4-12.3 NUCLEATED RED BLOOD CELLS (BEAKER) (test 0 /100 WBC 0-0 jrpo=674) POCT-GLUCOSE [id number] 21:14:00 Test Item Value Reference Range Comments POC-GLUCOSE METER (BEAKER) 152 mg/dL 70-110 TESTED AT [address] (test fhlf=9808) [facility] [address] POCT-GLUCOSE [id number] 19:03:00 Test Item Value Reference Range Comments POC-GLUCOSE METER (BEAKER) 173 mg/dL 70-110 TESTED AT [address] (test cpaq=8018) [facility] [address] POCT-GLUCOSE [id number] 13:33:00 Test Item Value Reference Range Comments POC-GLUCOSE METER (BEAKER) 274 mg/dL 70-110 TESTED AT [address] (test wmob=4236) [facility] [address] POCT-GLUCOSE [id number] 10:28:00 Test Item Value Reference Range Comments POC-GLUCOSE METER (BEAKER) 131 mg/dL 70-110 TESTED AT [facility] [address] [facility] (test yrgi=2123) [facility] [address] POCT-GLUCOSE [id number] 06:41:00 Test Item Value Reference Range Comments POC-GLUCOSE METER (BEAKER) 152 mg/dL 70-110 TESTED AT [facility] [address] [facility] (test suex=6979) [facility] [address] [id number] 04:02:00 Test Item Value Reference Range Comments PHOSPHORUS (BEAKER) (test ocnv=800) 3.6 mg/dL 2.3-4.7 [id number] 04:02:00 Test Item Value Reference Range Comments MAGNESIUM (BEAKER) (test lazp=621) 2.1 mg/dL 1.6-2.6 BASIC METABOLIC [id number] 04:02:00 Test Item Value Reference Range Comments SODIUM (BEAKER) (test 135 meq/L 136-145 imqu=631) POTASSIUM (BEAKER) (test 4.6 meq/L 3.5-5.1 mars=337) CHLORIDE (BEAKER) (test 101 meq/L 98-107 flxd=098) CO2 (BEAKER) (test 27 meq/L 22-29 vqfn=822) BLOOD UREA NITROGEN 23 mg/dL 7-21 (BEAKER) (test fggp=576) CREATININE (BEAKER) (test 1.37 mg/dL 0.57-1.25 zihx=048) GLUCOSE RANDOM (BEAKER) 187 mg/dL 70-105 (test glsl=197) CALCIUM (BEAKER) (test 8.4 mg/dL 8.4-10.2 udef=998) EGFR (BEAKER) (test 46 mL/min/1.73 sq m ESTIMATED GFR IS NOT lskl=0022) ACCURATE CREATININE CLEARANCE IN PREDICTING GLOMERULAR FILTRATION RATE. ESTIMATED GFR IS NOT APPLICABLE FOR DIALYSIS PATIENTS. [id number] 03:57:00 Test Item Value Reference Range Comments PARTIAL THROMBOPLASTIN TIME (BEAKER) (test 44.5 seconds 22.5-36.0 zacc=534) PROTHROMBIN [id number] 03:56:00 Test Item Value Reference Range Comments PROTIME (BEAKER) (test stle=937) 13.4 seconds 11.7-14.7 INR (BEAKER) (test xtdj=920) 1.0 <=5.9 RECOMMENDED COUMADIN/WARFARIN INR THERAPY RANGESSTANDARD DOSE: 2.0 - 3.0 Includes: PROPHYLAXIS forvenous thrombosis, systemic embolization; TREATMENT for venous thrombosis and/or pulmonary embolus.HIGH RISK: Target INR is 2.5-3.5 for patients with mechanical heart valves.RAD, CHEST, 1 VIEW, NON [id number] 03:40:00Reason for exam:->post opShould this be [...] MDReport Verified Date/Time: 07/15/2018 03:40:13 Reading Location: [address] Neuro Reading Room 03: 40 AMCBC (HEMOGRAM ONLY)2018-07-15 03:33:00 Test Item Value Reference Range Comments WHITE BLOOD CELL COUNT (BEAKER) (test dxlx=509) 7.2 K/ L 3.5-10.5 RED BLOOD CELL COUNT (BEAKER) (test jyxm=080) 2.91 M/ L 3.93-5.22 HEMOGLOBIN (BEAKER) (test cfuz=186) 8.9 GM/DL 11.2-15.7 HEMATOCRIT (BEAKER) (test hsgt=794) 30.2 % 34.1-44.9 MEAN CORPUSCULAR VOLUME (BEAKER) (test tfxt=441) 103.8 fL 79.4-94.8 MEAN CORPUSCULAR HEMOGLOBIN (BEAKER) (test 30.6 pg 25.6-32.2 ighi=893) MEAN CORPUSCULAR HEMOGLOBIN CONC (BEAKER) (test 29.5 GM/DL 32.2-35.5 gdhs=778) RED CELL DISTRIBUTION WIDTH (BEAKER) (test 19.2 % 11.7-14.4 wtvo=686) PLATELET COUNT (BEAKER) (test hhxj=170) 217 K/CU MM 150-450 MEAN PLATELET VOLUME (BEAKER) (test fjab=717) 9.8 fL 9.4-12.3 NUCLEATED RED BLOOD CELLS (BEAKER) (test 0 /100 WBC 0-0 fynf=971) POCT-GLUCOSE [id number] 21:46:00 Test Item Value Reference Range Comments POC-GLUCOSE METER (BEAKER) 263 mg/dL 70-110 TESTED AT [address] (test zqri=9714) [facility] [address] POCT-GLUCOSE [id number] 19:03:00 Test Item Value Reference Range Comments POC-GLUCOSE METER (BEAKER) 178 mg/dL 70-110 TESTED AT [address] (test rpnl=7954) [facility] [address] POCT-GLUCOSE [id number] 17:02:00 Test Item Value Reference Range Comments POC-GLUCOSE METER (BEAKER) 126 mg/dL 70-110 TESTED AT [address] (test zzkf=9751) [facility] [address] POCT-GLUCOSE [id number] 11:34:00 Test Item Value Reference Range Comments POC-GLUCOSE METER (BEAKER) 202 mg/dL 70-110 TESTED AT [address] (test gbuz=3270) [facility] [address] RAD, CHEST, 1 VIEW, NON [id number] 05:46:00Reason for exam:->post opShould this be performed [...] Robles Verified Date/Time: 07/14/2018 05:46:57 Reading Location: [address] Neuro Reading Room [id number] 04:03:00 Test Item Value Reference Range Comments MAGNESIUM (BEAKER) (test 2.2 mg/dL 1.6-2.6 Specimen slightly hemolyzed bgca=404) [id number] 04:03:00 Test Item Value Reference Range Comments PHOSPHORUS (BEAKER) (test 2.9 mg/dL 2.3-4.7 Specimen slightly hemolyzed wosr=375) BASIC METABOLIC [id number] 04:03:00 Test Item Value Reference Range Comments SODIUM (BEAKER) (test 138 meq/L 136-145 rojr=412) POTASSIUM (BEAKER) (test 5.0 meq/L 3.5-5.1 Specimen slightly tyed=760) hemolyzed CHLORIDE (BEAKER) (test 103 meq/L 98-107 igwo=000) CO2 (BEAKER) (test 29 meq/L 22-29 jvrc=074) BLOOD UREA NITROGEN 23 mg/dL 7-21 (BEAKER) (test dgom=405) CREATININE (BEAKER) (test 1.41 mg/dL 0.57-1.25 Specimen slightly mzmn=797) hemolyzed GLUCOSE RANDOM (BEAKER) 144 mg/dL 70-105 (test liqi=979) CALCIUM (BEAKER) (test 9.1 mg/dL 8.4-10.2 fkna=360) EGFR (BEAKER) (test 45 mL/min/1.73 sq m ESTIMATED GFR IS NOT jtod=2164) ACCURATE CREATININE CLEARANCE IN PREDICTING GLOMERULAR FILTRATION RATE. ESTIMATED GFR IS NOT APPLICABLE FOR DIALYSIS PATIENTS. [id number] 03:49:00 Test Item Value Reference Range Comments PARTIAL THROMBOPLASTIN TIME (BEAKER) (test 42.0 seconds 22.5-36.0 yfkp=069) PROTHROMBIN [id number] 03:48:00 Test Item Value Reference Range Comments PROTIME (BEAKER) (test dvfy=707) 14.1 seconds 11.7-14.7 INR (BEAKER) (test wpce=601) 1.1 <=5.9 RECOMMENDED COUMADIN/WARFARIN INR THERAPY RANGESSTANDARD DOSE: 2.0 - 3.0 Includes: PROPHYLAXIS forvenous thrombosis, systemic embolization; TREATMENT for venous thrombosis and/or pulmonary embolus.HIGH RISK: Target INR is 2.5-3.5 for patients with mechanical heart valves.CBC (HEMOGRAM ONLY)2018-07-14 03:38:00 Test Item Value Reference Range Comments WHITE BLOOD CELL COUNT (BEAKER) (test uulx=317) 8.1 K/ L 3.5-10.5 RED BLOOD CELL COUNT (BEAKER) (test xwwn=356) 2.93 M/ L 3.93-5.22 HEMOGLOBIN (BEAKER) (test uwom=215) 9.0 GM/DL 11.2-15.7 HEMATOCRIT (BEAKER) (test qwvu=421) 30.6 % 34.1-44.9 MEAN CORPUSCULAR VOLUME (BEAKER) (test wmnv=849) 104.4 fL 79.4-94.8 MEAN CORPUSCULAR HEMOGLOBIN (BEAKER) (test 30.7 pg 25.6-32.2 bubh=302) MEAN CORPUSCULAR HEMOGLOBIN CONC (BEAKER) (test 29.4 GM/DL 32.2-35.5 hser=987) RED CELL DISTRIBUTION WIDTH (BEAKER) (test 19.6 % 11.7-14.4 cocs=922) PLATELET COUNT (BEAKER) (test ejab=332) 252 K/CU MM 150-450 MEAN PLATELET VOLUME (BEAKER) (test icvg=322) 9.7 fL 9.4-12.3 NUCLEATED RED BLOOD CELLS (BEAKER) (test 0 /100 WBC 0-0 skbw=307) POCT-GLUCOSE [id number] 21:17:00 Test Item Value Reference Range Comments POC-GLUCOSE METER (BEAKER) 168 mg/dL 70-110 TESTED AT [address] (test owud=9917) [place] [id number] POCT-GLUCOSE [id number] 16:32:00 Test Item Value Reference Range Comments POC-GLUCOSE METER (BEAKER) 267 mg/dL 70-110 TESTED AT [address] (test eniz=1055) [facility] [address] POCT-GLUCOSE [id number] 12:30:00 Test Item Value Reference Range Comments POC-GLUCOSE METER (BEAKER) 213 mg/dL 70-110 TESTED AT [address] (test yxlm=9732) [facility] [address] RAD, CHEST, 1 VIEW, NON [id number] 09:17:00Reason for exam:->post opShould this be performed [...] remaining pulmonary opacities have improved. Signed: Willian [place] Verified Date/Time: 07/13/2018 09:17:51 Reading Location: [facility] Radiology ReadingRoom 09 :17 AMDIGOXIN [id number] 09:01:00 Test Item Value Reference Range Comments DIGOXIN LEVEL (BEAKER) (test vvbm=732) 0.8 ng/mL 0.8-2.0 Draw before next dose of DigoxinPOCT-GLUCOSE [id number] 08:47:00 Test Item Value Reference Range Comments POC-GLUCOSE METER (BEAKER) 240 mg/dL 70-110 TESTED AT [facility] [address] [facility] (test zozy=1436) [facility] [address] [id number] 04:08:00 Test Item Value Reference Range Comments PHOSPHORUS (BEAKER) (test zsbn=439) 3.5 mg/dL 2.3-4.7 [id number] 04:08:00 Test Item Value Reference Range Comments MAGNESIUM (BEAKER) (test ebja=520) 2.1 mg/dL 1.6-2.6 BASIC METABOLIC [id number] 04:08:00 Test Item Value Reference Range Comments SODIUM (BEAKER) (test 140 meq/L 136-145 bwdy=918) POTASSIUM (BEAKER) (test 4.8 meq/L 3.5-5.1 cnth=521) CHLORIDE (BEAKER) (test 105 meq/L 98-107 qock=514) CO2 (BEAKER) (test 28 meq/L 22-29 iops=041) BLOOD UREA NITROGEN 21 mg/dL 7-21 (BEAKER) (test dubg=784) CREATININE (BEAKER) (test 1.33 mg/dL 0.57-1.25 bswp=588) GLUCOSE RANDOM (BEAKER) 123 mg/dL 70-105 (test ntje=116) CALCIUM (BEAKER) (test 8.8 mg/dL 8.4-10.2 uklc=013) EGFR (BEAKER) (test 48 mL/min/1.73 sq m ESTIMATED GFR IS NOT sgpd=3140) ACCURATE CREATININE CLEARANCE IN PREDICTING GLOMERULAR FILTRATION RATE. ESTIMATED GFR IS NOT APPLICABLE FOR DIALYSIS PATIENTS. [id number] 03:51:00 Test Item Value Reference Range Comments PARTIAL THROMBOPLASTIN TIME (BEAKER) (test 43.3 seconds 22.5-36.0 ybio=737) PROTHROMBIN TIME/[id number] 03:50:00 Test Item Value Reference Range Comments PROTIME (BEAKER) (test ermy=401) 13.7 seconds 11.7-14.7 INR (BEAKER) (test evyw=907) 1.0 <=5.9 RECOMMENDED COUMADIN/WARFARIN INR THERAPY RANGESSTANDARD DOSE: 2.0 - 3.0 Includes: PROPHYLAXIS forvenous thrombosis, systemic embolization; TREATMENT for venous thrombosis and/or pulmonary embolus.HIGH RISK: Target INR is 2.5-3.5 for patients with mechanical heart valves.CBC (HEMOGRAM ONLY)2018-07-13 03:24:00 Test Item Value Reference Range Comments WHITE BLOOD CELL COUNT (BEAKER) (test svrn=578) 7.5 K/ L 3.5-10.5 RED BLOOD CELL COUNT (BEAKER) (test joql=369) 2.94 M/ L 3.93-5.22 HEMOGLOBIN (BEAKER) (test iprv=026) 9.1 GM/DL 11.2-15.7 HEMATOCRIT (BEAKER) (test fivq=732) 30.9 % 34.1-44.9 MEAN CORPUSCULAR VOLUME (BEAKER) (test jxji=432) 105.1 fL 79.4-94.8 MEAN CORPUSCULAR HEMOGLOBIN (BEAKER) (test 31.0 pg 25.6-32.2 vegy=132) MEAN CORPUSCULAR HEMOGLOBIN CONC (BEAKER) (test 29.4 GM/DL 32.2-35.5 thcj=118) RED CELL DISTRIBUTION WIDTH (BEAKER) (test 19.8 % 11.7-14.4 emwj=788) PLATELET COUNT (BEAKER) (test sbfi=240) 259 K/CU MM 150-450 MEAN PLATELET VOLUME (BEAKER) (test rnrh=889) 9.7 fL 9.4-12.3 NUCLEATED RED BLOOD CELLS (BEAKER) (test 0 /100 WBC 0-0 lejd=631) POCT-GLUCOSE [id number] 22:41:00 Test Item Value Reference Range Comments POC-GLUCOSE METER (BEAKER) 230 mg/dL 70-110 TESTED AT [address] (test qmfi=8794) [place] [id number] POCT-GLUCOSE [id number] 18:56:00 Test Item Value Reference Range Comments POC-GLUCOSE METER (BEAKER) 98 mg/dL 70-110 TESTED AT [address] (test ylow=9025) [facility] [address] POCT-GLUCOSE [id number] 12:04:00 Test Item Value Reference Range Comments POC-GLUCOSE METER (BEAKER) 169 mg/dL 70-110 TESTED AT [address] (test hplo=3693) [facility] [address] POCT-GLUCOSE [id number] 09:50:00 Test Item Value Reference Range Comments POC-GLUCOSE METER (BEAKER) 260 mg/dL 70-110 TESTED AT [address] (test exin=0135) [facility] [address] RAD, CHEST, 1 VIEW, NON [id number] 07:18:00Reason for exam:->post opShould this be performed at the bedside?->YesFINAL REPORT AP chest HISTORY: Postoperative. COMPARISON: 07/11/2018. IMPRESSION: Central line unchanged. Cardiomegaly. Thoracic aortic stent graft. Coarse interstitial markings similar to previous. Question developing right basilar atelectasis. No pneumothorax. Signed: Mitchel Jarquin MDReport Verified Date/ Time: 07/12/2018 07:18:25 Reading Location: [facility] Radiology Reading Room 07: 18 AMPOCT-GLUCOSE [id number] 06:54:00 Test Item Value Reference Range Comments POC-GLUCOSE METER (BEAKER) 193 mg/dL 70-110 TESTED AT [facility] [address] (test tmtu=7714) [facility] [address] [id number] 04:51:00 Test Item Value Reference Range Comments PARTIAL THROMBOPLASTIN TIME (BEAKER) (test 42.6 seconds 22.5-36.0 yxrx=228) PROTHROMBIN [id number] 04:42:00 Test Item Value Reference Range Comments PROTIME (BEAKER) (test fgvr=732) 13.7 seconds 11.7-14.7 INR (BEAKER) (test amyc=019) 1.0 <=5.9 RECOMMENDED COUMADIN/WARFARIN INR THERAPY RANGESSTANDARD DOSE: 2.0 - 3.0 Includes: PROPHYLAXIS forvenous thrombosis, systemic embolization; TREATMENT for venous thrombosis and/or pulmonary embolus.HIGH RISK: Target INR is 2.5-3.5 for patients with mechanical heart valves.[id number] 04:31:00 Test Item Value Reference Range Comments PHOSPHORUS (BEAKER) (test dkke=278) 2.4 mg/dL 2.3-4.7 [id number] 04:31:00 Test Item Value Reference Range Comments MAGNESIUM (BEAKER) (test nmbz=864) 2.3 mg/dL 1.6-2.6 BASIC METABOLIC [id number] 04:31:00 Test Item Value Reference Range Comments SODIUM (BEAKER) (test 141 meq/L 136-145 dwen=295) POTASSIUM (BEAKER) (test 4.5 meq/L 3.5-5.1 tgih=827) CHLORIDE (BEAKER) (test 106 meq/L 98-107 zetr=264) CO2 (BEAKER) (test 31 meq/L 22-29 kqjl=578) BLOOD UREA NITROGEN 26 mg/dL 7-21 (BEAKER) (test mktj=510) CREATININE (BEAKER) (test 1.41 mg/dL 0.57-1.25 estb=221) GLUCOSE RANDOM (BEAKER) 63 mg/dL 70-105 (test ilmv=483) CALCIUM (BEAKER) (test 8.7 mg/dL 8.4-10.2 tdmx=423) EGFR (BEAKER) (test 45 mL/min/1.73 sq m ESTIMATED GFR IS NOT lcuh=0313) ACCURATE CREATININE CLEARANCE IN PREDICTING GLOMERULAR FILTRATION RATE. ESTIMATED GFR IS NOT APPLICABLE FOR DIALYSIS PATIENTS. CBC (HEMOGRAM ONLY)2018-07-12 04:23:00 Test Item Value Reference Range Comments WHITE BLOOD CELL COUNT (BEAKER) (test omau=195) 7.0 K/ L 3.5-10.5 RED BLOOD CELL COUNT (BEAKER) (test grmt=774) 2.79 M/ L 3.93-5.22 HEMOGLOBIN (BEAKER) (test vqyw=345) 8.6 GM/DL 11.2-15.7 HEMATOCRIT (BEAKER) (test aoio=539) 28.3 % 34.1-44.9 MEAN CORPUSCULAR VOLUME (BEAKER) (test ivil=930) 101.4 fL 79.4-94.8 MEAN CORPUSCULAR HEMOGLOBIN (BEAKER) (test 30.8 pg 25.6-32.2 bhgj=175) MEAN CORPUSCULAR HEMOGLOBIN CONC (BEAKER) (test 30.4 GM/DL 32.2-35.5 wxew=363) RED CELL DISTRIBUTION WIDTH (BEAKER) (test 20.2 % 11.7-14.4 krmu=575) PLATELET COUNT (BEAKER) (test onjm=801) 276 K/CU MM 150-450 MEAN PLATELET VOLUME (BEAKER) (test xrlb=005) 10.3 fL 9.4-12.3 NUCLEATED RED BLOOD CELLS (BEAKER) (test 0 /100 WBC 0-0 ilah=319) POCT-GLUCOSE [id number] 00:19:00 Test Item Value Reference Range Comments POC-GLUCOSE METER (BEAKER) 404 mg/dL 70-110 TESTED AT [address] (test czaq=0169) [facility] [address] POCT-GLUCOSE [id number] 18:10:00 Test Item Value Reference Range Comments POC-GLUCOSE METER (BEAKER) 268 mg/dL 70-110 TESTED AT [address] (test plur=1554) [facility] [address] POCT-GLUCOSE [id number] 12:22:00 Test Item Value Reference Range Comments POC-GLUCOSE METER (BEAKER) 221 mg/dL 70-110 TESTED AT [facility] [address] [facility] (test mvcc=6357) [facility] [address] RAD, CHEST, 1 VIEW, NON [id number] 07:27:00Reason for exam:->post opShould this be performed [...] change. Signed: Willian Mckeon MDReport Verified Date/Time: 2018 07:27:41 Reading Location: [facility] Radiology Reading Room POCT- GLUCOSE [id number] 05:28:00 Test Item Value Reference Range Comments POC-GLUCOSE METER (BEAKER) 166 mg/dL 70-110 TESTED AT [address] (test jfug=5190) [place] [id number] 04:08:00 Test Item Value Reference Range Comments PHOSPHORUS (BEAKER) (test tvpn=593) 3.0 mg/dL 2.3-4.7 [id number] 04:08:00 Test Item Value Reference Range Comments MAGNESIUM (BEAKER) (test etvz=944) 1.8 mg/dL 1.6-2.6 BASIC METABOLIC [id number] 04:08:00 Test Item Value Reference Range Comments SODIUM (BEAKER) (test 138 meq/L 136-145 looj=153) POTASSIUM (BEAKER) (test 4.6 meq/L 3.5-5.1 fhhh=882) CHLORIDE (BEAKER) (test 102 meq/L 98-107 safh=727) CO2 (BEAKER) (test 29 meq/L 22-29 ooqc=617) BLOOD UREA NITROGEN 28 mg/dL 7-21 (BEAKER) (test wcvl=334) CREATININE (BEAKER) (test 1.64 mg/dL 0.57-1.25 ckii=374) GLUCOSE RANDOM (BEAKER) 196 mg/dL 70-105 (test kewo=850) CALCIUM (BEAKER) (test 8.8 mg/dL 8.4-10.2 xatv=211) EGFR (BEAKER) (test 37 mL/min/1.73 sq m ESTIMATED GFR IS NOT fnpo=6335) ACCURATE CREATININE CLEARANCE IN PREDICTING GLOMERULAR FILTRATION RATE. ESTIMATED GFR IS NOT APPLICABLE FOR DIALYSIS PATIENTS. [id number] 04:06:00 Test Item Value Reference Range Comments PARTIAL THROMBOPLASTIN TIME (BEAKER) (test 51.7 seconds 22.5-36.0 deiu=138) PROTHROMBIN TIME/[id number] 04:05:00 Test Item Value Reference Range Comments PROTIME (BEAKER) (test jvks=545) 14.1 seconds 11.7-14.7 INR (BEAKER) (test xpwc=071) 1.1 <=5.9 RECOMMENDED COUMADIN/WARFARIN INR THERAPY RANGESSTANDARD DOSE: 2.0 - 3.0 Includes: PROPHYLAXIS forvenous thrombosis, systemic embolization; TREATMENT for venous thrombosis and/or pulmonary embolus.HIGH RISK: Target INR is 2.5-3.5 for patients with mechanical heart valves.CBC (HEMOGRAM ONLY)2018-07-11 03:53:00 Test Item Value Reference Range Comments WHITE BLOOD CELL COUNT (BEAKER) (test fomh=895) 6.3 K/ L 3.5-10.5 RED BLOOD CELL COUNT (BEAKER) (test xhzc=859) 2.90 M/ L 3.93-5.22 HEMOGLOBIN (BEAKER) (test trdr=368) 8.8 GM/DL 11.2-15.7 HEMATOCRIT (BEAKER) (test trhn=769) 29.7 % 34.1-44.9 MEAN CORPUSCULAR VOLUME (BEAKER) (test zcrc=310) 102.4 fL 79.4-94.8 MEAN CORPUSCULAR HEMOGLOBIN (BEAKER) (test 30.3 pg 25.6-32.2 lzgi=181) MEAN CORPUSCULAR HEMOGLOBIN CONC (BEAKER) (test 29.6 GM/DL 32.2-35.5 tqkl=255) RED CELL DISTRIBUTION WIDTH (BEAKER) (test 21.0 % 11.7-14.4 eoge=166) PLATELET COUNT (BEAKER) (test ejpi=641) 270 K/CU MM 150-450 MEAN PLATELET VOLUME (BEAKER) (test fija=795) 10.1 fL 9.4-12.3 NUCLEATED RED BLOOD CELLS (BEAKER) (test 0 /100 WBC 0-0 klee=362) POCT-GLUCOSE [id number] 00:38:00 Test Item Value Reference Range Comments POC-GLUCOSE METER (BEAKER) 198 mg/dL 70-110 TESTED AT [address] (test wgck=0837) [facility] [address] POCT-GLUCOSE [id number] 18:42:00 Test Item Value Reference Range Comments POC-GLUCOSE METER (BEAKER) 240 mg/dL 70-110 TESTED AT [address] (test evld=5019) [place] [id number] POCT-GLUCOSE [id number] 12:48:00 Test Item Value Reference Range Comments POC-GLUCOSE METER (BEAKER) 248 mg/dL 70-110 TESTED AT [address] (test hdql=9530) [facility] [address] RAD, CHEST, 1 VIEW, NON [id number] 08:53:00Reason for exam:->post opShould this be performed [...] Mckeon Verified Date/Time: 07/10/2018 08:53:53 Reading Location: [address] Reading Room POCT-GLUCOSE [id number] 06:33:00 Test Item Value Reference Range Comments POC-GLUCOSE METER (BEAKER) 129 mg/dL 70-110 TESTED AT [facility] [address] [facility] (test etlj=1484) [facility] [address] POCT-GLUCOSE [id number] 05:36:00 Test Item Value Reference Range Comments POC-GLUCOSE METER (BEAKER) 55 mg/dL 70-110 TESTED AT [facility] [address] [facility] (test vudg=4290) [facility] [address] [id number] 04:15:00 Test Item Value Reference Range Comments PHOSPHORUS (BEAKER) (test ivru=159) 3.0 mg/dL 2.3-4.7 [id number] 04:15:00 Test Item Value Reference Range Comments MAGNESIUM (BEAKER) (test tagl=372) 2.0 mg/dL 1.6-2.6 BASIC METABOLIC [id number] 04:15:00 Test Item Value Reference Range Comments SODIUM (BEAKER) (test 138 meq/L 136-145 fnps=967) POTASSIUM (BEAKER) (test 4.5 meq/L 3.5-5.1 lmsx=628) CHLORIDE (BEAKER) (test 103 meq/L 98-107 xxxd=499) CO2 (BEAKER) (test 27 meq/L 22-29 tcpb=693) BLOOD UREA NITROGEN 32 mg/dL 7-21 (BEAKER) (test kzuj=686) CREATININE (BEAKER) (test 1.55 mg/dL 0.57-1.25 zabf=465) GLUCOSE RANDOM (BEAKER) 121 mg/dL 70-105 (test gegr=355) CALCIUM (BEAKER) (test 8.8 mg/dL 8.4-10.2 pggk=569) EGFR (BEAKER) (test 40 mL/min/1.73 sq m ESTIMATED GFR IS NOT wxrk=5399) ACCURATE CREATININE CLEARANCE IN PREDICTING GLOMERULAR FILTRATION RATE. ESTIMATED GFR IS NOT APPLICABLE FOR DIALYSIS PATIENTS. [id number] 03:41:00 Test Item Value Reference Range Comments PARTIAL THROMBOPLASTIN TIME (BEAKER) (test 50.1 seconds 22.5-36.0 iiec=004) PROTHROMBIN [id number] 03:40:00 Test Item Value Reference Range Comments PROTIME (BEAKER) (test itru=909) 14.6 seconds 11.7-14.7 INR (BEAKER) (test xcuk=660) 1.1 <=5.9 RECOMMENDED COUMADIN/WARFARIN INR THERAPY RANGESSTANDARD DOSE: 2.0 - 3.0 Includes: PROPHYLAXIS forvenous thrombosis, systemic embolization; TREATMENT for venous thrombosis and/or pulmonary embolus.HIGH RISK: Target INR is 2.5-3.5 for patients with mechanical heart valves.CBC (HEMOGRAM ONLY)2018-07-10 03:38:00 Test Item Value Reference Range Comments WHITE BLOOD CELL COUNT (BEAKER) (test lpuj=398) 6.3 K/ L 3.5-10.5 RED BLOOD CELL COUNT (BEAKER) (test njda=658) 2.47 M/ L 3.93-5.22 HEMOGLOBIN (BEAKER) (test mxza=325) 7.6 GM/DL 11.2-15.7 HEMATOCRIT (BEAKER) (test zseh=737) 26.0 % 34.1-44.9 MEAN CORPUSCULAR VOLUME (BEAKER) (test yllz=240) 105.3 fL 79.4-94.8 MEAN CORPUSCULAR HEMOGLOBIN (BEAKER) (test 30.8 pg 25.6-32.2 kjht=611) MEAN CORPUSCULAR HEMOGLOBIN CONC (BEAKER) (test 29.2 GM/DL 32.2-35.5 ydky=373) RED CELL DISTRIBUTION WIDTH (BEAKER) (test 17.1 % 11.7-14.4 xgpa=599) PLATELET COUNT (BEAKER) (test zuce=654) 301 K/CU MM 150-450 MEAN PLATELET VOLUME (BEAKER) (test esfx=236) 10.0 fL 9.4-12.3 NUCLEATED RED BLOOD CELLS (BEAKER) (test 0 /100 WBC 0-0 kicx=154) POCT-GLUCOSE [id number] 00:03:00 Test Item Value Reference Range Comments POC-GLUCOSE METER (BEAKER) 317 mg/dL 70-110 Notified PAULA BERGER/TESTED AT [facility] (test ernu=6214) [facility] GAL [facility] [address] POCT-GLUCOSE [id number] 17:44:00 Test Item Value Reference Range Comments POC-GLUCOSE METER (BEAKER) 129 mg/dL 70-110 TESTED AT [place] [address] [address]AL (test cuqd=8318) [facility] [address] POCT-GLUCOSE [id number] 12:13:00 Test Item Value Reference Range Comments POC-GLUCOSE METER (BEAKER) 283 mg/dL 70-110 TESTED AT [address] (test bdvp=8212) [facility] [address] RAD, CHEST, 1 VIEW, NON [id number] 07:35:00Reason for exam:->post opShould this be performed [...] MDReport Verified Date/Time: 07/09/2018 07:35:48 Reading Location: [address] Body Reading Room POCT-GLUCOSE [id number] 05:13:00 Test Item Value Reference Range Comments POC-GLUCOSE METER (BEAKER) 186 mg/dL 70-110 TESTED AT [address] (test rebm=0724) [place] [id number] 04:51:00 Test Item Value Reference Range Comments PHOSPHORUS (BEAKER) (test oprx=025) 3.8 mg/dL 2.3-4.7 [id number] 04:51:00 Test Item Value Reference Range Comments MAGNESIUM (BEAKER) (test vdni=714) 2.1 mg/dL 1.6-2.6 BASIC METABOLIC [id number] 04:51:00 Test Item Value Reference Range Comments SODIUM (BEAKER) (test 138 meq/L 136-145 qfsx=458) POTASSIUM (BEAKER) (test 4.9 meq/L 3.5-5.1 xldc=405) CHLORIDE (BEAKER) (test 103 meq/L 98-107 olom=299) CO2 (BEAKER) (test 29 meq/L 22-29 qoqe=870) BLOOD UREA NITROGEN 33 mg/dL 7-21 (BEAKER) (test kqvj=965) CREATININE (BEAKER) (test 1.78 mg/dL 0.57-1.25 dfsn=832) GLUCOSE RANDOM (BEAKER) 155 mg/dL 70-105 (test njgy=058) CALCIUM (BEAKER) (test 9.0 mg/dL 8.4-10.2 vawe=149) EGFR (BEAKER) (test 34 mL/min/1.73 sq m ESTIMATED GFR IS NOT eklx=4813) ACCURATE CREATININE CLEARANCE IN PREDICTING GLOMERULAR FILTRATION RATE. ESTIMATED GFR IS NOT APPLICABLE FOR DIALYSIS PATIENTS. [id number] 04:30:00 Test Item Value Reference Range Comments PARTIAL THROMBOPLASTIN TIME (BEAKER) (test 63.2 seconds 22.5-36.0 ehog=033) PROTHROMBIN [id number] 04:29:00 Test Item Value Reference Range Comments PROTIME (BEAKER) (test livz=192) 14.6 seconds 11.7-14.7 INR (BEAKER) (test kfxd=853) 1.1 <=5.9 RECOMMENDED COUMADIN/WARFARIN INR THERAPY RANGESSTANDARD DOSE: 2.0 - 3.0 Includes: PROPHYLAXIS forvenous thrombosis, systemic embolization; TREATMENT for venous thrombosis and/or pulmonary embolus.HIGH RISK: Target INR is 2.5-3.5 for patients with mechanical heart valves.CBC (HEMOGRAM ONLY)2018-07-09 04:18:00 Test Item Value Reference Range Comments WHITE BLOOD CELL COUNT (BEAKER) (test zhpb=549) 6.8 K/ L 3.5-10.5 RED BLOOD CELL COUNT (BEAKER) (test nkvj=370) 2.73 M/ L 3.93-5.22 HEMOGLOBIN (BEAKER) (test opgc=984) 8.4 GM/DL 11.2-15.7 HEMATOCRIT (BEAKER) (test sfuu=486) 28.7 % 34.1-44.9 MEAN CORPUSCULAR VOLUME (BEAKER) (test voac=966) 105.1 fL 79.4-94.8 MEAN CORPUSCULAR HEMOGLOBIN (BEAKER) (test 30.8 pg 25.6-32.2 xxol=468) MEAN CORPUSCULAR HEMOGLOBIN CONC (BEAKER) (test 29.3 GM/DL 32.2-35.5 qqvh=010) RED CELL DISTRIBUTION WIDTH (BEAKER) (test 17.2 % 11.7-14.4 vwvp=494) PLATELET COUNT (BEAKER) (test pixk=371) 263 K/CU MM 150-450 MEAN PLATELET VOLUME (BEAKER) (test rhhg=040) 9.9 fL 9.4-12.3 NUCLEATED RED BLOOD CELLS (BEAKER) (test 0 /100 WBC 0-0 wsle=781) POCT-GLUCOSE [id number] 23:27:00 Test Item Value Reference Range Comments POC-GLUCOSE METER (BEAKER) 141 mg/dL 70-110 TESTED AT [address] (test qnyw=0981) [facility] [address] POCT-GLUCOSE [id number] 19:30:00 Test Item Value Reference Range Comments POC-GLUCOSE METER (BEAKER) 234 mg/dL 70-110 TESTED AT [address] (test xbiz=1213) [facility] [address] POCT-GLUCOSE [id number] 11:55:00 Test Item Value Reference Range Comments POC-GLUCOSE METER (BEAKER) 317 mg/dL 70-110 TESTED AT [address] (test fdaz=3608) [facility] [address] [id number] 05:14:00 Test Item Value Reference Range Comments PHOSPHORUS (BEAKER) (test raml=022) 3.8 mg/dL 2.3-4.7 [id number] 05:14:00 Test Item Value Reference Range Comments MAGNESIUM (BEAKER) (test gldj=785) 2.1 mg/dL 1.6-2.6 BASIC METABOLIC [id number] 05:14:00 Test Item Value Reference Range Comments SODIUM (BEAKER) (test 137 meq/L 136-145 zqcx=574) POTASSIUM (BEAKER) (test 4.6 meq/L 3.5-5.1 kxfi=670) CHLORIDE (BEAKER) (test 103 meq/L 98-107 cmsd=172) CO2 (BEAKER) (test 26 meq/L 22-29 xsfv=539) BLOOD UREA NITROGEN 31 mg/dL 7-21 (BEAKER) (test prlt=027) CREATININE (BEAKER) (test 1.63 mg/dL 0.57-1.25 wxsw=137) GLUCOSE RANDOM (BEAKER) 244 mg/dL 70-105 (test hlfm=383) CALCIUM (BEAKER) (test 9.2 mg/dL 8.4-10.2 xfod=098) EGFR (BEAKER) (test 38 mL/min/1.73 sq m ESTIMATED GFR IS NOT zdln=7599) ACCURATE CREATININE CLEARANCE IN PREDICTING GLOMERULAR FILTRATION RATE. ESTIMATED GFR IS NOT APPLICABLE FOR DIALYSIS PATIENTS. RAD, CHEST, 1 VIEW, NON [id number] 04:48:00Reason for exam:->post opShould this be performed [...] lung consolidation or pneumothorax. Signed: Navi Garcia [facility] Verified Date/Time: 07/08/2018 04:48:56 Reading Location : [address] Reading Room Electronicallysigned by: NAVI GARCIA M.D. on 07/08/2018 04:48 [id number] 04:24:00 Test Item Value Reference Range Comments PARTIAL THROMBOPLASTIN TIME (BEAKER) (test 54.7 seconds 22.5-36.0 fyne=585) PROTHROMBIN TIME/[id number] 04:23:00 Test Item Value Reference Range Comments PROTIME (BEAKER) (test kyvt=848) 14.8 seconds 11.7-14.7 INR (BEAKER) (test vpbp=334) 1.2 <=5.9 RECOMMENDED COUMADIN/WARFARIN INR THERAPY RANGESSTANDARD DOSE: 2.0 - 3.0 Includes: PROPHYLAXIS forvenous thrombosis, systemic embolization; TREATMENT for venous thrombosis and/or pulmonary embolus.HIGH RISK: Target INR is 2.5-3.5 for patients with mechanical heart valves.CBC (HEMOGRAM ONLY)2018-07-08 04:02:00 Test Item Value Reference Range Comments WHITE BLOOD CELL COUNT (BEAKER) (test rgcx=722) 6.7 K/ L 3.5-10.5 RED BLOOD CELL COUNT (BEAKER) (test rpmh=003) 2.79 M/ L 3.93-5.22 HEMOGLOBIN (BEAKER) (test vtmo=784) 8.6 GM/DL 11.2-15.7 HEMATOCRIT (BEAKER) (test mute=186) 29.0 % 34.1-44.9 MEAN CORPUSCULAR VOLUME (BEAKER) (test sjdh=905) 103.9 fL 79.4-94.8 MEAN CORPUSCULAR HEMOGLOBIN (BEAKER) (test 30.8 pg 25.6-32.2 enkv=893) MEAN CORPUSCULAR HEMOGLOBIN CONC (BEAKER) (test 29.7 GM/DL 32.2-35.5 swvz=754) RED CELL DISTRIBUTION WIDTH (BEAKER) (test 17.2 % 11.7-14.4 uemv=407) PLATELET COUNT (BEAKER) (test ynqw=344) 295 K/CU MM 150-450 MEAN PLATELET VOLUME (BEAKER) (test cggn=022) 10.2 fL 9.4-12.3 NUCLEATED RED BLOOD CELLS (BEAKER) (test 0 /100 WBC 0-0 kyur=021) RAD, CHEST, 1 VIEW, NON [id number] 08:41:00Reason for exam:->post opShould this be performed [...] IMPRESSION:No significant change since 07/06/2018. Signed: Lynnette Castroeport Verified Date/Time: 07/07/2018 08:41:39 Reading Location: [facility] Radiology Reading Room [id number] 05:37:00 Test Item Value Reference Range Comments PHOSPHORUS (BEAKER) (test lyum=644) 3.0 mg/dL 2.3-4.7 [id number] 05:37:00 Test Item Value Reference Range Comments MAGNESIUM (BEAKER) (test nfxh=094) 2.1 mg/dL 1.6-2.6 BASIC METABOLIC [id number] 05:37:00 Test Item Value Reference Range Comments SODIUM (BEAKER) (test 137 meq/L 136-145 rcnc=299) POTASSIUM (BEAKER) (test 4.6 meq/L 3.5-5.1 bcxq=146) CHLORIDE (BEAKER) (test 102 meq/L 98-107 kcyk=596) CO2 (BEAKER) (test 25 meq/L 22-29 phrv=738) BLOOD UREA NITROGEN 27 mg/dL 7-21 (BEAKER) (test obaq=094) CREATININE (BEAKER) (test 1.44 mg/dL 0.57-1.25 isgn=535) GLUCOSE RANDOM (BEAKER) 191 mg/dL 70-105 (test rtfb=570) CALCIUM (BEAKER) (test 9.2 mg/dL 8.4-10.2 wfqb=114) EGFR (BEAKER) (test 43 mL/min/1.73 sq m ESTIMATED GFR IS NOT fokm=5305) ACCURATE CREATININE CLEARANCE IN PREDICTING GLOMERULAR FILTRATION RATE. ESTIMATED GFR IS NOT APPLICABLE FOR DIALYSIS PATIENTS. [id number] 05:12:00 Test Item Value Reference Range Comments PARTIAL THROMBOPLASTIN TIME (BEAKER) (test 42.9 seconds 22.5-36.0 hrae=892) PROTHROMBIN [id number] 05:11:00 Test Item Value Reference Range Comments PROTIME (BEAKER) (test utts=588) 14.1 seconds 11.7-14.7 INR (BEAKER) (test tnjr=610) 1.1 <=5.9 RECOMMENDED COUMADIN/WARFARIN INR THERAPY RANGESSTANDARD DOSE: 2.0 - 3.0 Includes: PROPHYLAXIS forvenous thrombosis, systemic embolization; TREATMENT for venous thrombosis and/or pulmonary embolus.HIGH RISK: Target INR is 2.5-3.5 for patients with mechanical heart valves.CBC (HEMOGRAM ONLY)2018-07-07 05:01:00 Test Item Value Reference Range Comments WHITE BLOOD CELL COUNT (BEAKER) (test nued=080) 6.9 K/ L 3.5-10.5 RED BLOOD CELL COUNT (BEAKER) (test oobj=827) 2.84 M/ L 3.93-5.22 HEMOGLOBIN (BEAKER) (test edty=467) 8.8 GM/DL 11.2-15.7 HEMATOCRIT (BEAKER) (test eoyb=120) 29.2 % 34.1-44.9 MEAN CORPUSCULAR VOLUME (BEAKER) (test mwmk=472) 102.8 fL 79.4-94.8 MEAN CORPUSCULAR HEMOGLOBIN (BEAKER) (test 31.0 pg 25.6-32.2 boom=894) MEAN CORPUSCULAR HEMOGLOBIN CONC (BEAKER) (test 30.1 GM/DL 32.2-35.5 clzj=929) RED CELL DISTRIBUTION WIDTH (BEAKER) (test 17.0 % 11.7-14.4 ubdf=268) PLATELET COUNT (BEAKER) (test spab=818) 270 K/CU MM 150-450 MEAN PLATELET VOLUME (BEAKER) (test sxlf=276) 10.2 fL 9.4-12.3 NUCLEATED RED BLOOD CELLS (BEAKER) (test 0 /100 WBC 0-0 kvmu=448) RAD, CHEST, 1 VIEW, NON [id number] 17:48:00Reason for exam:->Confirm PICC line placementShould this [...] MDReport Verified Date/Time: 07/06/2018 17:48:54 Reading Location: [facility] C013 Consult Reading Room Electronically signed by: GEO RICO M.D. on 2018 05:48 [id number] 17:23:00 Test Item Value Reference Range Comments MAGNESIUM (BEAKER) (test clpi=418) 2.2 mg/dL 1.6-2.6 BASIC METABOLIC [id number] 17:23:00 Test Item Value Reference Range Comments SODIUM (BEAKER) (test 137 meq/L 136-145 bmct=768) POTASSIUM (BEAKER) (test 4.9 meq/L 3.5-5.1 pyaw=383) CHLORIDE (BEAKER) (test 103 meq/L 98-107 sisb=637) CO2 (BEAKER) (test 25 meq/L 22-29 rjty=677) BLOOD UREA NITROGEN 25 mg/dL 7-21 (BEAKER) (test xkof=681) CREATININE (BEAKER) (test 1.41 mg/dL 0.57-1.25 ithb=392) GLUCOSE RANDOM (BEAKER) 219 mg/dL 70-105 (test qanf=197) CALCIUM (BEAKER) (test 9.0 mg/dL 8.4-10.2 jspd=652) EGFR (BEAKER) (test 45 mL/min/1.73 sq m ESTIMATED GFR IS NOT zsbd=3849) ACCURATE CREATININE CLEARANCE IN PREDICTING GLOMERULAR FILTRATION RATE. ESTIMATED GFR IS NOT APPLICABLE FOR DIALYSIS PATIENTS. BLOOD GAS, [id number] 16:33:00 Test Item Value Reference Range Comments PH ARTERIAL (BEAKER) (test gsur=716) 7.46 7.35-7.45 PCO2 ARTERIAL (BEAKER) (test clgx=225) 42 mmHg 35-45 PO2 ARTERIAL (BEAKER) (test qajf=051) 63 mmHg 80-90 O2 SATURATION ARTERIAL (BEAKER) (test luxs=727) 93.1 % 96.0-97.0 HCO3 ARTERIAL (BEAKER) (test uglw=853) 29 mmol/L 21-29 BASE EXCESS ARTERIAL (BEAKER) (test nvty=668) 4.4 mmol/L -2.0-3.0 PATIENT TEMPERATURE (BEAKER) (test fyen=9472) 37.0 C FIO2 (BEAKER) (test eusp=7901) 32.0 % RAD, CHEST, 1 VIEW, NON [id number] 13:22:00Reason for exam:->post opShould this be performed at the bedside?->YesFINAL REPORT Chest one view. Clinical history: post op Comparison: 07/05/2018 Discussion: A frontal chest is provided. Cardiomediastinal contours are unchanged. A left IJ line is in stable position. There is mild pulmonary edema. No new consolidation. No pneumothorax. Small bilateral pleural effusions are present. Signed: Morgan Chengeport Verified Date/Time: 07/06/2018 13:22:02 Reading Location: [facility] C013W Consult Reading Room [id number] 04:30:00 Test Item Value Reference Range Comments PHOSPHORUS (BEAKER) (test aumg=359) 3.2 mg/dL 2.3-4.7 [id number] 04:30:00 Test Item Value Reference Range Comments MAGNESIUM (BEAKER) (test nbdl=608) 2.2 mg/dL 1.6-2.6 BASIC METABOLIC [id number] 04:30:00 Test Item Value Reference Range Comments SODIUM (BEAKER) (test 138 meq/L 136-145 ifbn=436) POTASSIUM (BEAKER) (test 4.4 meq/L 3.5-5.1 vwhc=504) CHLORIDE (BEAKER) (test 104 meq/L 98-107 efcv=642) CO2 (BEAKER) (test 28 meq/L 22-29 rndj=477) BLOOD UREA NITROGEN 25 mg/dL 7-21 (BEAKER) (test ffsm=887) CREATININE (BEAKER) (test 1.43 mg/dL 0.57-1.25 rrbb=607) GLUCOSE RANDOM (BEAKER) 207 mg/dL 70-105 (test tygq=678) CALCIUM (BEAKER) (test 8.9 mg/dL 8.4-10.2 dwcx=084) EGFR (BEAKER) (test 44 mL/min/1.73 sq m ESTIMATED GFR IS NOT rtol=3597) ACCURATE CREATININE CLEARANCE IN PREDICTING GLOMERULAR FILTRATION RATE. ESTIMATED GFR IS NOT APPLICABLE FOR DIALYSIS PATIENTS. PROTHROMBIN TIME/[id number] 04:06:00 Test Item Value Reference Range Comments PROTIME (BEAKER) (test otxe=024) 14.6 seconds 11.7-14.7 INR (BEAKER) (test hbky=612) 1.1 <=5.9 RECOMMENDED COUMADIN/WARFARIN INR THERAPY RANGESSTANDARD DOSE: 2.0 - 3.0 Includes: PROPHYLAXIS forvenous thrombosis, systemic embolization; TREATMENT for venous thrombosis and/or pulmonary embolus.HIGH RISK: Target INR is 2.5-3.5 for patients with mechanical heart valves.[id number] 04:06:00 Test Item Value Reference Range Comments PARTIAL THROMBOPLASTIN TIME (BEAKER) (test 47.8 seconds 22.5-36.0 avxz=934) CBC (HEMOGRAM ONLY)2018-07-06 03:53:00 Test Item Value Reference Range Comments WHITE BLOOD CELL COUNT (BEAKER) (test toas=998) 7.1 K/ L 3.5-10.5 RED BLOOD CELL COUNT (BEAKER) (test oece=773) 2.77 M/ L 3.93-5.22 HEMOGLOBIN (BEAKER) (test frio=195) 8.4 GM/DL 11.2-15.7 HEMATOCRIT (BEAKER) (test bchm=465) 28.6 % 34.1-44.9 MEAN CORPUSCULAR VOLUME (BEAKER) (test sfmn=741) 103.2 fL 79.4-94.8 MEAN CORPUSCULAR HEMOGLOBIN (BEAKER) (test 30.3 pg 25.6-32.2 gemd=265) MEAN CORPUSCULAR HEMOGLOBIN CONC (BEAKER) (test 29.4 GM/DL 32.2-35.5 pbsg=552) RED CELL DISTRIBUTION WIDTH (BEAKER) (test 17.1 % 11.7-14.4 szgh=780) PLATELET COUNT (BEAKER) (test ctkz=953) 267 K/CU MM 150-450 MEAN PLATELET VOLUME (BEAKER) (test zuqw=917) 9.9 fL 9.4-12.3 NUCLEATED RED BLOOD CELLS (BEAKER) (test 0 /100 WBC 0-0 izxs=890) HEPATIC FUNCTION [id number] 17:51:00 Test Item Value Reference Range Comments TOTAL PROTEIN (BEAKER) (test vqlc=347) 6.2 gm/dL 6.0-8.3 ALBUMIN (BEAKER) (test sflh=0616) 3.2 g/dL 3.5-5.0 BILIRUBIN TOTAL (BEAKER) (test ybmn=605) 0.7 mg/dL 0.2-1.2 BILIRUBIN DIRECT (BEAKER) (test slob=987) 0.5 mg/dL 0.1-0.5 ALKALINE PHOSPHATASE (BEAKER) (test zkbs=593) 84 U/L 40-150 AST (SGOT) (BEAKER) (test mcrp=120) 16 U/L 5-34 ALT (SGPT) (BEAKER) (test yzdl=302) 9 U/L 6-55 RAD, CHEST, 1 VIEW, NON [id number] 08:39:00Reason for exam:->post opShould this be performed [...] Mckeon Verified Date/Time: 07/05/2018 08:39:46 Reading Location: [facility] Radiology Reading Room [id number] 04:33:00 Test Item Value Reference Range Comments MAGNESIUM (BEAKER) (test 2.6 mg/dL 1.6-2.6 Specimen slightly hemolyzed xivn=569) [id number] 04:33:00 Test Item Value Reference Range Comments PHOSPHORUS (BEAKER) (test 2.9 mg/dL 2.3-4.7 Specimen slightly hemolyzed uagd=777) BASIC METABOLIC [id number] 04:33:00 Test Item Value Reference Range Comments SODIUM (BEAKER) (test 139 meq/L 136-145 mpia=568) POTASSIUM (BEAKER) (test 4.5 meq/L 3.5-5.1 Specimen slightly uxys=445) hemolyzed CHLORIDE (BEAKER) (test 105 meq/L 98-107 vtrh=158) CO2 (BEAKER) (test 28 meq/L 22-29 endj=411) BLOOD UREA NITROGEN 26 mg/dL 7-21 (BEAKER) (test loqn=773) CREATININE (BEAKER) (test 1.32 mg/dL 0.57-1.25 Specimen slightly vfgf=237) hemolyzed GLUCOSE RANDOM (BEAKER) 111 mg/dL 70-105 (test wasy=956) CALCIUM (BEAKER) (test 8.5 mg/dL 8.4-10.2 kwlt=134) EGFR (BEAKER) (test 48 mL/min/1.73 sq m ESTIMATED GFR IS NOT pyws=9619) ACCURATE CREATININE CLEARANCE IN PREDICTING GLOMERULAR FILTRATION RATE. ESTIMATED GFR IS NOT APPLICABLE FOR DIALYSIS PATIENTS. [id number] 04:23:00 Test Item Value Reference Range Comments PARTIAL THROMBOPLASTIN TIME (BEAKER) (test 49.0 seconds 22.5-36.0 avoy=059) PROTHROMBIN TIME/[id number] 04:22:00 Test Item Value Reference Range Comments PROTIME (BEAKER) (test klwn=531) 14.3 seconds 11.7-14.7 INR (BEAKER) (test icuu=745) 1.1 <=5.9 RECOMMENDED COUMADIN/WARFARIN INR THERAPY RANGESSTANDARD DOSE: 2.0 - 3.0 Includes: PROPHYLAXIS forvenous thrombosis, systemic embolization; TREATMENT for venous thrombosis and/or pulmonary embolus.HIGH RISK: Target INR is 2.5-3.5 for patients with mechanical heart valves.CBC (HEMOGRAM ONLY)2018-07-05 04:13:00 Test Item Value Reference Range Comments WHITE BLOOD CELL COUNT (BEAKER) (test zelv=952) 6.6 K/ L 3.5-10.5 RED BLOOD CELL COUNT (BEAKER) (test mnvl=821) 2.60 M/ L 3.93-5.22 HEMOGLOBIN (BEAKER) (test pgfj=541) 7.9 GM/DL 11.2-15.7 HEMATOCRIT (BEAKER) (test gieu=029) 26.5 % 34.1-44.9 MEAN CORPUSCULAR VOLUME (BEAKER) (test thpm=101) 101.9 fL 79.4-94.8 MEAN CORPUSCULAR HEMOGLOBIN (BEAKER) (test 30.4 pg 25.6-32.2 alcq=160) MEAN CORPUSCULAR HEMOGLOBIN CONC (BEAKER) (test 29.8 GM/DL 32.2-35.5 uilr=216) RED CELL DISTRIBUTION WIDTH (BEAKER) (test 17.4 % 11.7-14.4 kpxu=238) PLATELET COUNT (BEAKER) (test jhng=772) 248 K/CU MM 150-450 MEAN PLATELET VOLUME (BEAKER) (test sgbq=011) 10.4 fL 9.4-12.3 NUCLEATED RED BLOOD CELLS (BEAKER) (test 0 /100 WBC 0-0 lnno=767) POCT-GLUCOSE [id number] 18:22:00 Test Item Value Reference Range Comments POC-GLUCOSE METER (BEAKER) 166 mg/dL 70-110 TESTED AT [facility] [address] [facility] (test xdwc=0936) [facility] [address] RAD, CHEST, 1 VIEW, NON [id number] 08:37:00Reason for exam:->post opShould this be performed at the bedside?->YesFINAL REPORT AP view of the chest dated 07/04/2018 COMPARISON: 07/03/2018 CLINICAL INFORMATION: post op Comment: Heart remains enlarged. Thoracic aorta is ectatic. Stent is seen inthe descending thoracic aorta. Pulmonary vasculature is unremarkable. Lungs are clear. No pulmonary infiltrate or pleural effusion is present. Impression: No interval change. Signed: Virginia Diaz Verified Date/Time: 07/04/2018 08:37:54 Reading Location: [facility] Radiology Reading Room Electronically signed by: VIRGINIA DIAZ M.D. on 2018 08:37 [id number] 04:36:00 Test Item Value Reference Range Comments PARTIAL THROMBOPLASTIN TIME (BEAKER) (test 49.7 seconds 22.5-36.0 nowe=835) PROTHROMBIN [id number] 04:35:00 Test Item Value Reference Range Comments PROTIME (BEAKER) (test twwt=258) 15.0 seconds 11.7-14.7 INR (BEAKER) (test siiu=143) 1.2 <=5.9 RECOMMENDED COUMADIN/WARFARIN INR THERAPY RANGESSTANDARD DOSE: 2.0 - 3.0 Includes: PROPHYLAXIS forvenous thrombosis, systemic embolization; TREATMENT for venous thrombosis and/or pulmonary embolus.HIGH RISK: Target INR is 2.5-3.5 for patients with mechanical heart valves.[id number] 04:35:00 Test Item Value Reference Range Comments PHOSPHORUS (BEAKER) (test hunx=911) 2.5 mg/dL 2.3-4.7 [id number] 04:35:00 Test Item Value Reference Range Comments MAGNESIUM (BEAKER) (test obfc=885) 2.2 mg/dL 1.6-2.6 BASIC METABOLIC [id number] 04:35:00 Test Item Value Reference Range Comments SODIUM (BEAKER) (test 138 meq/L 136-145 rnqq=243) POTASSIUM (BEAKER) (test 3.8 meq/L 3.5-5.1 kbal=424) CHLORIDE (BEAKER) (test 102 meq/L 98-107 lehf=735) CO2 (BEAKER) (test 30 meq/L 22-29 kmdh=097) BLOOD UREA NITROGEN 28 mg/dL 7-21 (BEAKER) (test vukg=459) CREATININE (BEAKER) (test 1.48 mg/dL 0.57-1.25 mkzq=886) GLUCOSE RANDOM (BEAKER) 175 mg/dL 70-105 (test oyos=672) CALCIUM (BEAKER) (test 8.6 mg/dL 8.4-10.2 vone=904) EGFR (BEAKER) (test 42 mL/min/1.73 sq m ESTIMATED GFR IS NOT hyiw=2426) ACCURATE CREATININE CLEARANCE IN PREDICTING GLOMERULAR FILTRATION RATE. ESTIMATED GFR IS NOT APPLICABLE FOR DIALYSIS PATIENTS. CBC (HEMOGRAM ONLY)2018-07-04 04:16:00 Test Item Value Reference Range Comments WHITE BLOOD CELL COUNT (BEAKER) (test xvgu=130) 7.4 K/ L 3.5-10.5 RED BLOOD CELL COUNT (BEAKER) (test bvld=431) 2.76 M/ L 3.93-5.22 HEMOGLOBIN (BEAKER) (test vyxo=824) 8.5 GM/DL 11.2-15.7 HEMATOCRIT (BEAKER) (test nkzr=620) 28.1 % 34.1-44.9 MEAN CORPUSCULAR VOLUME (BEAKER) (test dwkp=965) 101.8 fL 79.4-94.8 MEAN CORPUSCULAR HEMOGLOBIN (BEAKER) (test 30.8 pg 25.6-32.2 odgs=878) MEAN CORPUSCULAR HEMOGLOBIN CONC (BEAKER) (test 30.2 GM/DL 32.2-35.5 vkmb=555) RED CELL DISTRIBUTION WIDTH (BEAKER) (test 17.7 % 11.7-14.4 llhq=004) PLATELET COUNT (BEAKER) (test kljb=982) 268 K/CU MM 150-450 MEAN PLATELET VOLUME (BEAKER) (test hppp=881) 10.2 fL 9.4-12.3 NUCLEATED RED BLOOD CELLS (BEAKER) (test 0 /100 WBC 0-0 zkbl=300) [id number] 10:56:00 Test Item Value Reference Range Comments POTASSIUM (BEAKER) (test cthf=450) 4.3 meq/L 3.5-5.1 Check Serum Potassium level 30 minutes after IV potassium replacement completed.RAD, CHEST, 1 VIEW, NON [id number] 08:24:00Reason for exam:-> post opShould this be [...] MDReport Verified Date/Time: 07/03/2018 08:24:18 Reading Location: [facility] Radiology Reading Room POCT-GLUCOSE [id number] 08:16:00 Test Item Value Reference Range Comments POC-GLUCOSE METER (BEAKER) 164 mg/dL 70-110 TESTED AT [facility] [address] [facility] (test tunf=9110) [place] [address] RAD, ABDOMEN/KUB, 1 VIEW [id number] 06:21:00Reason for exam:->abd painShould this be performed [...] MDReport Verified Date/Time: 07/03/2018 06:21:16 Reading Location: [address] Transitional Reading Room [id number] 04:00:00 Test Item Value Reference Range Comments PHOSPHORUS (BEAKER) (test hgqa=750) 2.3 mg/dL 2.3-4.7 [id number] 04:00:00 Test Item Value Reference Range Comments MAGNESIUM (BEAKER) (test rizy=435) 1.9 mg/dL 1.6-2.6 BASIC METABOLIC [id number] 04:00:00 Test Item Value Reference Range Comments SODIUM (BEAKER) (test 139 meq/L 136-145 bvyv=695) POTASSIUM (BEAKER) (test 3.5 meq/L 3.5-5.1 cyju=552) CHLORIDE (BEAKER) (test 103 meq/L 98-107 jety=515) CO2 (BEAKER) (test 27 meq/L 22-29 ojbj=477) BLOOD UREA NITROGEN 27 mg/dL 7-21 (BEAKER) (test hwof=505) CREATININE (BEAKER) (test 1.40 mg/dL 0.57-1.25 cuth=707) GLUCOSE RANDOM (BEAKER) 123 mg/dL 70-105 (test negq=372) CALCIUM (BEAKER) (test 8.9 mg/dL 8.4-10.2 pvci=256) EGFR (BEAKER) (test 45 mL/min/1.73 sq m ESTIMATED GFR IS NOT wtsr=6199) ACCURATE CREATININE CLEARANCE IN PREDICTING GLOMERULAR FILTRATION RATE. ESTIMATED GFR IS NOT APPLICABLE FOR DIALYSIS PATIENTS. [id number] 03:59:00 Test Item Value Reference Range Comments PARTIAL THROMBOPLASTIN TIME (BEAKER) (test 48.9 seconds 22.5-36.0 fnod=891) PROTHROMBIN TIME/[id number] 03:58:00 Test Item Value Reference Range Comments PROTIME (BEAKER) (test hsdx=256) 15.3 seconds 11.7-14.7 INR (BEAKER) (test snum=903) 1.2 <=5.9 RECOMMENDED COUMADIN/WARFARIN INR THERAPY RANGESSTANDARD DOSE: 2.0 - 3.0 Includes: PROPHYLAXIS forvenous thrombosis, systemic embolization; TREATMENT for venous thrombosis and/or pulmonary embolus.HIGH RISK: Target INR is 2.5-3.5 for patients with mechanical heart valves.CBC (HEMOGRAM ONLY)2018-07-03 03:39:00 Test Item Value Reference Range Comments WHITE BLOOD CELL COUNT (BEAKER) (test tudg=110) 8.1 K/ L 3.5-10.5 RED BLOOD CELL COUNT (BEAKER) (test ntlt=357) 2.90 M/ L 3.93-5.22 HEMOGLOBIN (BEAKER) (test phif=911) 9.0 GM/DL 11.2-15.7 HEMATOCRIT (BEAKER) (test tjmh=964) 29.4 % 34.1-44.9 MEAN CORPUSCULAR VOLUME (BEAKER) (test lwrg=454) 101.4 fL 79.4-94.8 MEAN CORPUSCULAR HEMOGLOBIN (BEAKER) (test 31.0 pg 25.6-32.2 whmv=246) MEAN CORPUSCULAR HEMOGLOBIN CONC (BEAKER) (test 30.6 GM/DL 32.2-35.5 wruk=347) RED CELL DISTRIBUTION WIDTH (BEAKER) (test 17.8 % 11.7-14.4 nivq=829) PLATELET COUNT (BEAKER) (test ggiw=991) 245 K/CU MM 150-450 MEAN PLATELET VOLUME (BEAKER) (test hlac=903) 9.8 fL 9.4-12.3 NUCLEATED RED BLOOD CELLS (BEAKER) (test 0 /100 WBC 0-0 atmr=908) OXYGEN SATURATION, [id number] 10:53:00 Test Item Value Reference Range Comments O2 SATURATION (MEASURED) (BEAKER) (test kouf=6258) 50.1 % OXYGEN SATURATION, [id number] 08:54:00 Test Item Value Reference Range Comments O2 SATURATION (MEASURED) (BEAKER) (test dbht=3732) 45.3 % BLOOD GAS, [id number] 08:54:00 Test Item Value Reference Range Comments PH ARTERIAL (BEAKER) (test vfny=915) 7.49 7.35-7.45 PCO2 ARTERIAL (BEAKER) (test yalc=170) 39 mmHg 35-45 PO2 ARTERIAL (BEAKER) (test ddpn=784) 64 mmHg 80-90 O2 SATURATION ARTERIAL (BEAKER) (test nbqo=771) 94.6 % 96.0-97.0 HCO3 ARTERIAL (BEAKER) (test jbmc=583) 29 mmol/L 21-29 BASE EXCESS ARTERIAL (BEAKER) (test dwnz=244) 5.1 mmol/L -2.0-3.0 PATIENT TEMPERATURE (BEAKER) (test faco=4194) 36.1 C FIO2 (BEAKER) (test dpea=7680) 32.0 % RAD, CHEST, 1 VIEW, NON [id number] 06:40:00Reason for exam:->ETTShould this be performed at [...] MDReport Verified Date/Time: 07/02/2018 06:40:32 Reading Location: [address] Transitional Reading Room CBC W/PLT COUNT & AUTO [id number] 05:31 :00 Test Item Value Reference Range Comments WHITE BLOOD CELL COUNT (BEAKER) (test vlgs=047) 7.9 K/ L 3.5-10.5 RED BLOOD CELL COUNT (BEAKER) (test ctmx=780) 2.83 M/ L 3.93-5.22 HEMOGLOBIN (BEAKER) (test rins=814) 8.6 GM/DL 11.2-15.7 HEMATOCRIT (BEAKER) (test ljph=058) 28.4 % 34.1-44.9 MEAN CORPUSCULAR VOLUME (BEAKER) (test vosc=889) 100.4 fL 79.4-94.8 MEAN CORPUSCULAR HEMOGLOBIN (BEAKER) (test 30.4 pg 25.6-32.2 dpbc=511) MEAN CORPUSCULAR HEMOGLOBIN CONC (BEAKER) (test 30.3 GM/DL 32.2-35.5 ligl=292) RED CELL DISTRIBUTION WIDTH (BEAKER) (test 17.9 % 11.7-14.4 kcgr=297) PLATELET COUNT (BEAKER) (test xwzr=905) 222 K/CU MM 150-450 MEAN PLATELET VOLUME (BEAKER) (test gyfr=761) 9.9 fL 9.4-12.3 NUCLEATED RED BLOOD CELLS (BEAKER) (test 0 /100 WBC 0-0 asxz=652) NEUTROPHILS RELATIVE PERCENT (BEAKER) (test 85 % ybsl=013) LYMPHOCYTES RELATIVE PERCENT (BEAKER) (test 6 % opcl=847) MONOCYTES RELATIVE PERCENT (BEAKER) (test 8 % pqey=977) EOSINOPHILS RELATIVE PERCENT (BEAKER) (test 1 % yqjk=494) BASOPHILS RELATIVE PERCENT (BEAKER) (test 0 % ewfy=057) NEUTROPHILS ABSOLUTE COUNT (BEAKER) (test 6.67 K/ L 1.56-6.13 csse=387) LYMPHOCYTES ABSOLUTE COUNT (BEAKER) (test 0.46 K/ L 1.18-3.74 edhh=743) MONOCYTES ABSOLUTE COUNT (BEAKER) (test 0.64 K/ L 0.24-0.36 yrnl=951) EOSINOPHILS ABSOLUTE COUNT (BEAKER) (test 0.06 K/ L 0.04-0.36 uyua=881) BASOPHILS ABSOLUTE COUNT (BEAKER) (test 0.02 K/ L 0.01-0.08 ftme=594) IMMATURE GRANULOCYTES-RELATIVE PERCENT (BEAKER) 1 % 0-1 (test ljyj=5883) BASIC METABOLIC [id number] 04:54:00 Test Item Value Reference Range Comments SODIUM (BEAKER) (test 140 meq/L 136-145 cqqs=151) POTASSIUM (BEAKER) (test 3.7 meq/L 3.5-5.1 znlz=619) CHLORIDE (BEAKER) (test 104 meq/L 98-107 bamz=275) CO2 (BEAKER) (test 28 meq/L 22-29 sdnn=889) BLOOD UREA NITROGEN 29 mg/dL 7-21 (BEAKER) (test dzch=054) CREATININE (BEAKER) (test 1.49 mg/dL 0.57-1.25 mteg=665) GLUCOSE RANDOM (BEAKER) 107 mg/dL 70-105 (test ejte=936) CALCIUM (BEAKER) (test 8.9 mg/dL 8.4-10.2 vcvl=520) EGFR (BEAKER) (test 42 mL/min/1.73 sq m ESTIMATED GFR IS NOT vzuv=1534) ACCURATE CREATININE CLEARANCE IN PREDICTING GLOMERULAR FILTRATION RATE. ESTIMATED GFR IS NOT APPLICABLE FOR DIALYSIS PATIENTS. BASIC METABOLIC [id number] 18:41:00 Test Item Value Reference Range Comments SODIUM (BEAKER) (test 140 meq/L 136-145 rths=227) POTASSIUM (BEAKER) (test 4.1 meq/L 3.5-5.1 zllg=267) CHLORIDE (BEAKER) (test 104 meq/L 98-107 xdli=612) CO2 (BEAKER) (test 25 meq/L 22-29 snev=767) BLOOD UREA NITROGEN 31 mg/dL 7-21 (BEAKER) (test gzur=570) CREATININE (BEAKER) (test 1.55 mg/dL 0.57-1.25 kiof=704) GLUCOSE RANDOM (BEAKER) 127 mg/dL 70-105 (test ehhd=324) CALCIUM (BEAKER) (test 9.0 mg/dL 8.4-10.2 yxbe=816) EGFR (BEAKER) (test 40 mL/min/1.73 sq m ESTIMATED GFR IS NOT imrn=0541) ACCURATE CREATININE CLEARANCE IN PREDICTING GLOMERULAR FILTRATION RATE. ESTIMATED GFR IS NOT APPLICABLE FOR DIALYSIS PATIENTS. BLOOD GAS, [id number] 18:12:00 Test Item Value Reference Range Comments PH ARTERIAL (BEAKER) (test yywg=222) 7.50 7.35-7.45 PCO2 ARTERIAL (BEAKER) (test cwjr=087) 39 mmHg 35-45 PO2 ARTERIAL (BEAKER) (test kntz=582) 59 mmHg 80-90 O2 SATURATION ARTERIAL (BEAKER) (test kqxp=029) 92.7 % 96.0-97.0 HCO3 ARTERIAL (BEAKER) (test twye=675) 30 mmol/L 21-29 BASE EXCESS ARTERIAL (BEAKER) (test jhal=394) 6.0 mmol/L -2.0-3.0 PATIENT TEMPERATURE (BEAKER) (test fssl=7476) 36.9 C FIO2 (BEAKER) (test iyki=7314) 32.0 % RAD, CHEST, 1 VIEW, NON [id number] 07:32:00Reason for exam:->ETTShould this be performed at the bedside?->YesFINAL REPORT Chest one view. Clinical history: ETT Comparison: 06/30/2018 Discussion: A frontal chest is provided. Cardiomediastinal contours are unchanged. ET has been removed. Left IJ line is unchanged. There is unchanged mild vascular congestion and interstitial edema. Probable small left effusion. No pneumothorax. Signed: Morgan Chengeport Verified Date/Time: 07/01/2018 07:32: 43 Reading Location: [address] Neuro Reading Room BASIC METABOLIC [id number] 06:20:00 Test Item Value Reference Range Comments SODIUM (BEAKER) (test 142 meq/L 136-145 iulp=152) POTASSIUM (BEAKER) (test 4.3 meq/L 3.5-5.1 nlso=914) CHLORIDE (BEAKER) (test 106 meq/L 98-107 fgjc=066) CO2 (BEAKER) (test 27 meq/L 22-29 dlxn=028) BLOOD UREA NITROGEN 34 mg/dL 7-21 (BEAKER) (test xioy=775) CREATININE (BEAKER) (test 1.67 mg/dL 0.57-1.25 earp=345) GLUCOSE RANDOM (BEAKER) 130 mg/dL 70-105 (test cmtr=349) CALCIUM (BEAKER) (test 9.1 mg/dL 8.4-10.2 mwjs=053) EGFR (BEAKER) (test 37 mL/min/1.73 sq m ESTIMATED GFR IS NOT ykzk=6843) ACCURATE CREATININE CLEARANCE IN PREDICTING GLOMERULAR FILTRATION RATE. ESTIMATED GFR IS NOT APPLICABLE FOR DIALYSIS PATIENTS. CBC W/PLT COUNT & AUTO [id number] 05:56:00 Test Item Value Reference Range Comments WHITE BLOOD CELL COUNT (BEAKER) (test sabs=325) 6.9 K/ L 3.5-10.5 RED BLOOD CELL COUNT (BEAKER) (test tcrc=669) 2.88 M/ L 3.93-5.22 HEMOGLOBIN (BEAKER) (test xfsl=550) 8.9 GM/DL 11.2-15.7 HEMATOCRIT (BEAKER) (test szxp=790) 29.5 % 34.1-44.9 MEAN CORPUSCULAR VOLUME (BEAKER) (test lelo=484) 102.4 fL 79.4-94.8 MEAN CORPUSCULAR HEMOGLOBIN (BEAKER) (test 30.9 pg 25.6-32.2 bwdv=361) MEAN CORPUSCULAR HEMOGLOBIN CONC (BEAKER) (test 30.2 GM/DL 32.2-35.5 cgdt=262) RED CELL DISTRIBUTION WIDTH (BEAKER) (test 17.8 % 11.7-14.4 ggrc=507) PLATELET COUNT (BEAKER) (test uztc=057) 211 K/CU MM 150-450 MEAN PLATELET VOLUME (BEAKER) (test gkxo=249) 9.6 fL 9.4-12.3 NUCLEATED RED BLOOD CELLS (BEAKER) (test 0 /100 WBC 0-0 fzng=252) NEUTROPHILS RELATIVE PERCENT (BEAKER) (test 86 % sbam=160) LYMPHOCYTES RELATIVE PERCENT (BEAKER) (test 5 % nnpi=032) MONOCYTES RELATIVE PERCENT (BEAKER) (test 8 % uqmj=381) EOSINOPHILS RELATIVE PERCENT (BEAKER) (test 0 % rgup=597) BASOPHILS RELATIVE PERCENT (BEAKER) (test 0 % ntjq=404) NEUTROPHILS ABSOLUTE COUNT (BEAKER) (test 5.94 K/ L 1.56-6.13 pljq=667) LYMPHOCYTES ABSOLUTE COUNT (BEAKER) (test 0.37 K/ L 1.18-3.74 hovh=740) MONOCYTES ABSOLUTE COUNT (BEAKER) (test 0.53 K/ L 0.24-0.36 dayu=143) EOSINOPHILS ABSOLUTE COUNT (BEAKER) (test 0.02 K/ L 0.04-0.36 mxbb=016) BASOPHILS ABSOLUTE COUNT (BEAKER) (test 0.01 K/ L 0.01-0.08 zgfk=620) IMMATURE GRANULOCYTES-RELATIVE PERCENT (BEAKER) 0 % 0-1 (test ccdv=9045) [id number] 15:31:00 Test Item Value Reference Range Comments MAGNESIUM (BEAKER) (test wueq=158) 2.2 mg/dL 1.6-2.6 BASIC METABOLIC [id number] 15:31:00 Test Item Value Reference Range Comments SODIUM (BEAKER) (test 137 meq/L 136-145 xvjd=494) POTASSIUM (BEAKER) (test 4.5 meq/L 3.5-5.1 ytiw=704) CHLORIDE (BEAKER) (test 102 meq/L 98-107 rvxs=899) CO2 (BEAKER) (test 24 meq/L 22-29 bbit=520) BLOOD UREA NITROGEN 36 mg/dL 7-21 (BEAKER) (test sbfn=356) CREATININE (BEAKER) (test 1.78 mg/dL 0.57-1.25 yhxw=768) GLUCOSE RANDOM (BEAKER) 179 mg/dL 70-105 (test kmlw=220) CALCIUM (BEAKER) (test 8.8 mg/dL 8.4-10.2 afsa=746) EGFR (BEAKER) (test 34 mL/min/1.73 sq m ESTIMATED GFR IS NOT drtq=0723) ACCURATE CREATININE CLEARANCE IN PREDICTING GLOMERULAR FILTRATION RATE. ESTIMATED GFR IS NOT APPLICABLE FOR DIALYSIS PATIENTS. CBC W/PLT COUNT & AUTO [id number] 15:17:00 Test Item Value Reference Range Comments WHITE BLOOD CELL COUNT (BEAKER) (test krbq=761) 7.3 K/ L 3.5-10.5 RED BLOOD CELL COUNT (BEAKER) (test ckzr=171) 3.02 M/ L 3.93-5.22 HEMOGLOBIN (BEAKER) (test zcuh=766) 9.5 GM/DL 11.2-15.7 HEMATOCRIT (BEAKER) (test qzjg=574) 31.3 % 34.1-44.9 MEAN CORPUSCULAR VOLUME (BEAKER) (test hnnw=379) 103.6 fL 79.4-94.8 MEAN CORPUSCULAR HEMOGLOBIN (BEAKER) (test 31.5 pg 25.6-32.2 ntup=603) MEAN CORPUSCULAR HEMOGLOBIN CONC (BEAKER) (test 30.4 GM/DL 32.2-35.5 hopr=723) RED CELL DISTRIBUTION WIDTH (BEAKER) (test 17.8 % 11.7-14.4 ptxl=276) PLATELET COUNT (BEAKER) (test twlm=693) 229 K/CU MM 150-450 MEAN PLATELET VOLUME (BEAKER) (test qrjo=057) 9.7 fL 9.4-12.3 NUCLEATED RED BLOOD CELLS (BEAKER) (test 0 /100 WBC 0-0 fgxe=318) NEUTROPHILS RELATIVE PERCENT (BEAKER) (test 91 % gizp=518) LYMPHOCYTES RELATIVE PERCENT (BEAKER) (test 3 % ltkw=600) MONOCYTES RELATIVE PERCENT (BEAKER) (test 5 % xtim=520) EOSINOPHILS RELATIVE PERCENT (BEAKER) (test 0 % bidi=512) BASOPHILS RELATIVE PERCENT (BEAKER) (test 0 % nfdj=619) NEUTROPHILS ABSOLUTE COUNT (BEAKER) (test 6.62 K/ L 1.56-6.13 xumy=269) LYMPHOCYTES ABSOLUTE COUNT (BEAKER) (test 0.23 K/ L 1.18-3.74 gozc=978) MONOCYTES ABSOLUTE COUNT (BEAKER) (test 0.39 K/ L 0.24-0.36 ugeq=432) EOSINOPHILS ABSOLUTE COUNT (BEAKER) (test 0.00 K/ L 0.04-0.36 wagq=559) BASOPHILS ABSOLUTE COUNT (BEAKER) (test 0.02 K/ L 0.01-0.08 ngpo=269) IMMATURE GRANULOCYTES-RELATIVE PERCENT (BEAKER) 0 % 0-1 (test bzuk=9616) RAD, CHEST, 1 VIEW, NON [id number] 08:50:00Reason for exam:->ETTShould this be performed at [...] MDReport Verified Date/Time: 06/30/2018 08:50:44 Reading Location: [facility] [id number] Ultrasound Reading Room [id number] 06:52:00 Test Item Value Reference Range Comments ACTIVATED CLOTTING TIME 147 sec TESTED AT [address] (BEAKER) (test zouf=396) [place] [address] [id number] 06:52:00 Test Item Value Reference Range Comments ACTIVATED CLOTTING TIME 252 sec TESTED AT [address] (BEAKER) (test letn=858) [place] [address] [id number] 06:52:00 Test Item Value Reference Range Comments ACTIVATED CLOTTING TIME 257 sec TESTED AT [address] (BEAKER) (test fdef=263) [place] [address] [id number] 06:52:00 Test Item Value Reference Range Comments ACTIVATED CLOTTING TIME 246 sec TESTED AT [address] (BEAKER) (test qnmk=237) [place] [address] LACTIC ACID, [id number] 05:16:00 Test Item Value Reference Range Comments LACTATE BLOOD ARTERIAL (2) (BEAKER) (test 1.0 mmol/L 0.5-2.2 uqhu=1887) BLOOD GAS, [id number] 05:06:00 Test Item Value Reference Range Comments PH ARTERIAL (BEAKER) (test evin=133) 7.38 7.35-7.45 PCO2 ARTERIAL (BEAKER) (test jaod=614) 40 mmHg 35-45 PO2 ARTERIAL (BEAKER) (test whnk=709) 107 mmHg 80-90 O2 SATURATION ARTERIAL (BEAKER) (test pyuy=019) 97.9 % 96.0-97.0 HCO3 ARTERIAL (BEAKER) (test fafe=918) 23 mmol/L 21-29 BASE EXCESS ARTERIAL (BEAKER) (test eqsp=324) -2.1 mmol/L -2.0-3.0 PATIENT TEMPERATURE (BEAKER) (test ampn=8851) 36.7 C FIO2 (BEAKER) (test wjnc=3650) 60.0 % CBC W/PLT COUNT & AUTO [id number] 04:59:00 Test Item Value Reference Range Comments WHITE BLOOD CELL COUNT (BEAKER) (test ievt=041) 8.9 K/ L 3.5-10.5 RED BLOOD CELL COUNT (BEAKER) (test yazh=816) 3.28 M/ L 3.93-5.22 HEMOGLOBIN (BEAKER) (test zjen=312) 10.0 GM/DL 11.2-15.7 HEMATOCRIT (BEAKER) (test cvco=711) 34.4 % 34.1-44.9 MEAN CORPUSCULAR VOLUME (BEAKER) (test glok=212) 104.9 fL 79.4-94.8 MEAN CORPUSCULAR HEMOGLOBIN (BEAKER) (test 30.5 pg 25.6-32.2 ngag=790) MEAN CORPUSCULAR HEMOGLOBIN CONC (BEAKER) (test 29.1 GM/DL 32.2-35.5 pyfd=516) RED CELL DISTRIBUTION WIDTH (BEAKER) (test 17.6 % 11.7-14.4 ppni=113) PLATELET COUNT (BEAKER) (test zytx=875) 276 K/CU MM 150-450 MEAN PLATELET VOLUME (BEAKER) (test zyfi=961) 9.7 fL 9.4-12.3 NUCLEATED RED BLOOD CELLS (BEAKER) (test 0 /100 WBC 0-0 osfy=104) NEUTROPHILS RELATIVE PERCENT (BEAKER) (test 90 % oypu=902) LYMPHOCYTES RELATIVE PERCENT (BEAKER) (test 3 % kipn=447) MONOCYTES RELATIVE PERCENT (BEAKER) (test 6 % rxcq=075) EOSINOPHILS RELATIVE PERCENT (BEAKER) (test 0 % cajb=638) BASOPHILS RELATIVE PERCENT (BEAKER) (test 0 % wkwa=756) NEUTROPHILS ABSOLUTE COUNT (BEAKER) (test 8.00 K/ L 1.56-6.13 rqok=682) LYMPHOCYTES ABSOLUTE COUNT (BEAKER) (test 0.30 K/ L 1.18-3.74 gbex=819) MONOCYTES ABSOLUTE COUNT (BEAKER) (test 0.51 K/ L 0.24-0.36 fban=769) EOSINOPHILS ABSOLUTE COUNT (BEAKER) (test 0.01 K/ L 0.04-0.36 ajzu=395) BASOPHILS ABSOLUTE COUNT (BEAKER) (test 0.02 K/ L 0.01-0.08 rhim=356) IMMATURE GRANULOCYTES-RELATIVE PERCENT (BEAKER) 1 % 0-1 (test hcpa=2913) B-TYPE NATRIURETIC FACTOR (BNP)2018-06-30 04:19:00 Test Item Value Reference Range Comments B-TYPE NATRIURETIC PEPTIDE (BEAKER) (test 65522 pg/mL 0-100 bipj=355) HEPATIC FUNCTION [id number] 04:01:00 Test Item Value Reference Range Comments TOTAL PROTEIN (BEAKER) (test dlna=652) 6.5 gm/dL 6.0-8.3 ALBUMIN (BEAKER) (test dlme=8075) 3.4 g/dL 3.5-5.0 BILIRUBIN TOTAL (BEAKER) (test mglo=347) 1.2 mg/dL 0.2-1.2 BILIRUBIN DIRECT (BEAKER) (test qmnk=978) 0.8 mg/dL 0.1-0.5 ALKALINE PHOSPHATASE (BEAKER) (test aayr=448) 103 U/L 40-150 AST (SGOT) (BEAKER) (test xrdm=712) 17 U/L 5-34 ALT (SGPT) (BEAKER) (test cvkr=184) 15 U/L 6-55 RAD, CHEST, 1 VIEW, NON [id number] 02:31:00Reason for exam:->ETTShould this be performed at [...] thoracic aorta.Additional findings: None. Signed: Maryana Spann MDReport Verified Date/Time: 06/30/2018 02:31:37 Reading Location: [facility] C0[facility] Transitional Reading Room [id number] 02:27:00 Test Item Value Reference Range Comments PARTIAL THROMBOPLASTIN TIME (BEAKER) (test 39.5 seconds 22.5-36.0 twyd=470) PROTHROMBIN [id number] 02:26:00 Test Item Value Reference Range Comments PROTIME (BEAKER) (test naqy=018) 16.5 seconds 11.7-14.7 INR (BEAKER) (test jquo=523) 1.3 <=5.9 RECOMMENDED COUMADIN/WARFARIN INR THERAPY RANGESSTANDARD DOSE: 2.0 - 3.0 Includes: PROPHYLAXIS forvenous thrombosis, systemic embolization; TREATMENT for venous thrombosis and/or pulmonary embolus.HIGH RISK: Target INR is 2.5-3.5 for patients with mechanical heart valves.BASIC METABOLIC [id number] 02:09: 00 Test Item Value Reference Range Comments SODIUM (BEAKER) (test 137 meq/L 136-145 bqdw=477) POTASSIUM (BEAKER) (test 4.9 meq/L 3.5-5.1 scaq=522) CHLORIDE (BEAKER) (test 103 meq/L 98-107 lajn=564) CO2 (BEAKER) (test 23 meq/L 22-29 rpgj=833) BLOOD UREA NITROGEN 32 mg/dL 7-21 (BEAKER) (test isml=227) CREATININE (BEAKER) (test 1.74 mg/dL 0.57-1.25 urut=716) GLUCOSE RANDOM (BEAKER) 143 mg/dL 70-105 (test idma=431) CALCIUM (BEAKER) (test 8.8 mg/dL 8.4-10.2 audx=131) EGFR (BEAKER) (test 35 mL/min/1.73 sq m ESTIMATED GFR IS NOT wnjo=1373) ACCURATE CREATININE CLEARANCE IN PREDICTING GLOMERULAR FILTRATION RATE. ESTIMATED GFR IS NOT APPLICABLE FOR DIALYSIS PATIENTS. LACTIC ACID, [id number] 02:06:00 Test Item Value Reference Range Comments LACTATE BLOOD ARTERIAL (2) (BEAKER) (test 0.8 mmol/L 0.5-2.2 ludd=7734) OXYGEN SATURATION, [id number] 01:59:00 Test Item Value Reference Range Comments O2 SATURATION (MEASURED) (BEAKER) (test hjfa=8305) 79.3 % BLOOD GAS, [id number] 01:58:00 Test Item Value Reference Range Comments PH ARTERIAL (BEAKER) (test nioo=150) 7.34 7.35-7.45 PCO2 ARTERIAL (BEAKER) (test qcfy=254) 50 mmHg 35-45 PO2 ARTERIAL (BEAKER) (test jzkd=726) 78 mmHg 80-90 O2 SATURATION ARTERIAL (BEAKER) (test gowy=476) 95.4 % 96.0-97.0 HCO3 ARTERIAL (BEAKER) (test lmjg=609) 27 mmol/L 21-29 BASE EXCESS ARTERIAL (BEAKER) (test ismo=726) 0.3 mmol/L -2.0-3.0 PATIENT TEMPERATURE (BEAKER) (test igam=2887) 35.8 C FIO2 (BEAKER) (test mztd=7854) 60.0 % CBC W/PLT COUNT & AUTO [id number] 01:57:00 Test Item Value Reference Range Comments WHITE BLOOD CELL COUNT (BEAKER) (test xheg=215) 9.7 K/ L 3.5-10.5 RED BLOOD CELL COUNT (BEAKER) (test arki=105) 3.18 M/ L 3.93-5.22 HEMOGLOBIN (BEAKER) (test feis=880) 9.8 GM/DL 11.2-15.7 HEMATOCRIT (BEAKER) (test bfzt=308) 33.3 % 34.1-44.9 MEAN CORPUSCULAR VOLUME (BEAKER) (test kfxx=991) 104.7 fL 79.4-94.8 MEAN CORPUSCULAR HEMOGLOBIN (BEAKER) (test 30.8 pg 25.6-32.2 jdsb=469) MEAN CORPUSCULAR HEMOGLOBIN CONC (BEAKER) (test 29.4 GM/DL 32.2-35.5 ebge=443) RED CELL DISTRIBUTION WIDTH (BEAKER) (test 17.5 % 11.7-14.4 haes=777) PLATELET COUNT (BEAKER) (test vwnz=634) 289 K/CU MM 150-450 MEAN PLATELET VOLUME (BEAKER) (test darv=522) 9.7 fL 9.4-12.3 NUCLEATED RED BLOOD CELLS (BEAKER) (test 0 /100 WBC 0-0 dznd=759) NEUTROPHILS RELATIVE PERCENT (BEAKER) (test 88 % pedw=644) LYMPHOCYTES RELATIVE PERCENT (BEAKER) (test 5 % zwmf=039) MONOCYTES RELATIVE PERCENT (BEAKER) (test 4 % fnsj=638) EOSINOPHILS RELATIVE PERCENT (BEAKER) (test 1 % yoks=610) BASOPHILS RELATIVE PERCENT (BEAKER) (test 0 % awdq=854) NEUTROPHILS ABSOLUTE COUNT (BEAKER) (test 8.53 K/ L 1.56-6.13 zjdl=008) LYMPHOCYTES ABSOLUTE COUNT (BEAKER) (test 0.48 K/ L 1.18-3.74 djti=075) MONOCYTES ABSOLUTE COUNT (BEAKER) (test 0.41 K/ L 0.24-0.36 ljtv=405) EOSINOPHILS ABSOLUTE COUNT (BEAKER) (test 0.13 K/ L 0.04-0.36 ncse=312) BASOPHILS ABSOLUTE COUNT (BEAKER) (test 0.04 K/ L 0.01-0.08 sgzs=182) IMMATURE GRANULOCYTES-RELATIVE PERCENT (BEAKER) 1 % 0-1 (test jhaf=3173) FILTER IONIZED [id number] 23:29:00 Test Item Value Reference Range Comments FILTER IONIZED CALCIUM (BEAKER) (test cpqb=5863) 1.14 mmol/L Reference Range: No NormalsBLOOD GAS, [id number] 23:29:00 Test Item Value Reference Range Comments PH ARTERIAL (BEAKER) (test wkgk=820) 7.38 7.35-7.45 PCO2 ARTERIAL (BEAKER) (test bnvz=775) 49 mmHg 35-45 PO2 ARTERIAL (BEAKER) (test okib=648) 202 mmHg 80-90 O2 SATURATION ARTERIAL (BEAKER) (test lygo=668) 99.4 % 96.0-97.0 HCO3 ARTERIAL (BEAKER) (test ixpw=442) 29 mmol/L 21-29 BASE EXCESS ARTERIAL (BEAKER) (test vynh=904) 2.6 mmol/L -2.0-3.0 PATIENT TEMPERATURE (BEAKER) (test bucs=3677) 35.6 C FIO2 (BEAKER) (test dxpv=9717) 100.0 % HGB/HCT (H&H) - STAT [id number] 23:28:00 Test Item Value Reference Range Comments HEMOGLOBIN (BEAKER) (test fngu=444) 10.7 g/dL 12.0-15.0 HEMATOCRIT (BEAKER) (test mtso=528) 31.0 % 36.0-45.0 GLUCOSE-STAT [id number] 23:25:00 Test Item Value Reference Range Comments GLUCOSE RANDOM (BEAKER) (test wect=479) 97 mg/dL 70-110 SODIUM NA-STAT [id number] 23:25:00 Test Item Value Reference Range Comments SODIUM (BEAKER) (test ajqw=977) 137 meq/L 135-148 POTASSIUM-STAT [id number] 23:25:00 Test Item Value Reference Range Comments POTASSIUM (BEAKER) (test bzjm=160) 4.4 meq/L 3.6-5.5 B-TYPE NATRIURETIC FACTOR (BNP)[id number] 21:59:00 Test Item Value Reference Range Comments B-TYPE NATRIURETIC PEPTIDE (BEAKER) (test 74077 pg/mL 0-100 gigg=328) BASIC METABOLIC [id number] 21:31:00 Test Item Value Reference Range Comments SODIUM (BEAKER) (test 140 meq/L 136-145 fohp=087) POTASSIUM (BEAKER) (test 4.6 meq/L 3.5-5.1 sfeg=255) CHLORIDE (BEAKER) (test 104 meq/L 98-107 ggfr=672) CO2 (BEAKER) (test 25 meq/L 22-29 fxni=043) BLOOD UREA NITROGEN 33 mg/dL 7-21 (BEAKER) (test milm=290) CREATININE (BEAKER) (test 1.78 mg/dL 0.57-1.25 dpez=671) GLUCOSE RANDOM (BEAKER) 79 mg/dL 70-105 (test kyek=842) CALCIUM (BEAKER) (test 9.4 mg/dL 8.4-10.2 eefe=763) EGFR (BEAKER) (test 34 mL/min/1.73 sq m ESTIMATED GFR IS NOT qlvl=3524) ACCURATE CREATININE CLEARANCE IN PREDICTING GLOMERULAR FILTRATION RATE. ESTIMATED GFR IS NOT APPLICABLE FOR DIALYSIS PATIENTS. [id number] 21:18:00 Test Item Value Reference Range Comments PARTIAL THROMBOPLASTIN TIME (BEAKER) (test 36.1 seconds 22.5-36.0 jbom=391) PROTHROMBIN [id number] 21:17:00 Test Item Value Reference Range Comments PROTIME (BEAKER) (test qtay=534) 15.1 seconds 11.7-14.7 INR (BEAKER) (test kkjv=147) 1.2 <=5.9 RECOMMENDED COUMADIN/WARFARIN INR THERAPY RANGESSTANDARD DOSE: 2.0 - 3.0 Includes: PROPHYLAXIS forvenous thrombosis, systemic embolization; TREATMENT for venous thrombosis and/or pulmonary embolus.HIGH RISK: Target INR is 2.5-3.5 for patients with mechanical heart valves.CBC W/PLT COUNT & AUTO [id number] 21:05:00 Test Item Value Reference Range Comments WHITE BLOOD CELL COUNT (BEAKER) (test ncjh=005) 5.3 K/ L 3.5-10.5 RED BLOOD CELL COUNT (BEAKER) (test seqc=769) 3.43 M/ L 3.93-5.22 HEMOGLOBIN (BEAKER) (test wfwi=739) 10.6 GM/DL 11.2-15.7 HEMATOCRIT (BEAKER) (test tjvw=408) 36.3 % 34.1-44.9 MEAN CORPUSCULAR VOLUME (BEAKER) (test ehun=729) 105.8 fL 79.4-94.8 MEAN CORPUSCULAR HEMOGLOBIN (BEAKER) (test 30.9 pg 25.6-32.2 hgbt=922) MEAN CORPUSCULAR HEMOGLOBIN CONC (BEAKER) (test 29.2 GM/DL 32.2-35.5 vclw=479) RED CELL DISTRIBUTION WIDTH (BEAKER) (test 17.9 % 11.7-14.4 snve=547) PLATELET COUNT (BEAKER) (test xiat=760) 294 K/CU MM 150-450 MEAN PLATELET VOLUME (BEAKER) (test bbti=452) 9.4 fL 9.4-12.3 NUCLEATED RED BLOOD CELLS (BEAKER) (test 0 /100 WBC 0-0 zgcp=171) NEUTROPHILS RELATIVE PERCENT (BEAKER) (test 75 % rajv=579) LYMPHOCYTES RELATIVE PERCENT (BEAKER) (test 12 % sjgc=584) MONOCYTES RELATIVE PERCENT (BEAKER) (test 8 % pkqe=613) EOSINOPHILS RELATIVE PERCENT (BEAKER) (test 4 % rebk=393) BASOPHILS RELATIVE PERCENT (BEAKER) (test 1 % bhxa=233) NEUTROPHILS ABSOLUTE COUNT (BEAKER) (test 3.97 K/ L 1.56-6.13 vuum=899) LYMPHOCYTES ABSOLUTE COUNT (BEAKER) (test 0.64 K/ L 1.18-3.74 hxeg=383) MONOCYTES ABSOLUTE COUNT (BEAKER) (test 0.42 K/ L 0.24-0.36 ycuz=745) EOSINOPHILS ABSOLUTE COUNT (BEAKER) (test 0.19 K/ L 0.04-0.36 sisy=863) BASOPHILS ABSOLUTE COUNT (BEAKER) (test 0.05 K/ L 0.01-0.08 fscq=442) IMMATURE GRANULOCYTES-RELATIVE PERCENT (BEAKER) 0 % 0-1 (test piwe=3652) B-TYPE NATRIURETIC FACTOR (BNP)2017-08-18 15:08:00 Test Item Value Reference Range Comments B-TYPE NATRIURETIC PEPTIDE (BEAKER) (test 867 pg/mL 0-100 gemc=063) BASIC METABOLIC [id number] 15:05:00 Test Item Value Reference Range Comments SODIUM (BEAKER) (test 140 meq/L 136-145 zezq=458) POTASSIUM (BEAKER) (test 4.6 meq/L 3.5-5.1 qbie=865) CHLORIDE (BEAKER) (test 98 meq/L 98-107 qkjd=188) CO2 (BEAKER) (test 32 meq/L 22-29 lmot=312) BLOOD UREA NITROGEN 30 mg/dL 7-21 (BEAKER) (test rrgq=467) CREATININE (BEAKER) (test 2.58 mg/dL 0.57-1.25 fugt=818) GLUCOSE RANDOM (BEAKER) 105 mg/dL 70-105 (test islu=454) CALCIUM (BEAKER) (test 10.3 mg/dL 8.4-10.2 iyhp=019) EGFR (BEAKER) (test 22 mL/min/1.73 sq m ESTIMATED GFR IS NOT ffbn=0010) ACCURATE CREATININE CLEARANCE IN PREDICTING GLOMERULAR FILTRATION RATE. ESTIMATED GFR IS NOT APPLICABLE FOR DIALYSIS PATIENTS. [id number] 15:02:00 Test Item Value Reference Range Comments MAGNESIUM (BEAKER) (test tywe=077) 2.0 mg/dL 1.6-2.6 POCT-GLUCOSE [id number] 12:40:00 Test Item Value Reference Range Comments POC-GLUCOSE METER (BEAKER) 225 mg/dL 70-110 TESTED AT [address] (test zfmc=7783) [place] [id number] POCT-GLUCOSE [id number] 08:32:00 Test Item Value Reference Range Comments POC-GLUCOSE METER (BEAKER) 148 mg/dL 70-110 TESTED AT [address] (test xvqp=5159) [place] [address] BASIC METABOLIC [id number] 05:56:00 Test Item Value Reference Range Comments SODIUM (BEAKER) (test 138 meq/L 136-145 hspc=871) POTASSIUM (BEAKER) (test 4.0 meq/L 3.5-5.1 quzw=867) CHLORIDE (BEAKER) (test 98 meq/L 98-107 cvqn=405) CO2 (BEAKER) (test 29 meq/L 22-29 gqjr=579) BLOOD UREA NITROGEN 14 mg/dL 7-21 (BEAKER) (test tzgg=083) CREATININE (BEAKER) (test 1.85 mg/dL 0.57-1.25 xwsn=885) GLUCOSE RANDOM (BEAKER) 116 mg/dL 70-105 (test blvx=313) CALCIUM (BEAKER) (test 9.9 mg/dL 8.4-10.2 konz=283) EGFR (BEAKER) (test 33 mL/min/1.73 sq m ESTIMATED GFR IS NOT zlbn=5624) ACCURATE CREATININE CLEARANCE IN PREDICTING GLOMERULAR FILTRATION RATE. ESTIMATED GFR IS NOT APPLICABLE FOR DIALYSIS PATIENTS. POCT-GLUCOSE [id number] 21:38:00 Test Item Value Reference Range Comments POC-GLUCOSE METER (BEAKER) 162 mg/dL 70-110 TESTED AT [address] (test owkp=0046) [place] [id number] POCT-GLUCOSE [id number] 17:02:00 Test Item Value Reference Range Comments POC-GLUCOSE METER (BEAKER) 160 mg/dL 70-110 TESTED AT [address] (test ozem=5372) [place] [id number] POCT-GLUCOSE [id number] 12:33:00 Test Item Value Reference Range Comments POC-GLUCOSE METER (BEAKER) 163 mg/dL 70-110 TESTED AT [address] (test ivrl=6369) [place] [id number] POCT-GLUCOSE [id number] 10:33:00 Test Item Value Reference Range Comments POC-GLUCOSE METER (BEAKER) 175 mg/dL 70-110 TESTED AT [address] (test lniu=3696) [place] [address] [id number] 04:51:00 Test Item Value Reference Range Comments MAGNESIUM (BEAKER) (test 2.0 mg/dL 1.6-2.6 Specimen slightly hemolyzed edfe=382) BASIC METABOLIC [id number] 04:51:00 Test Item Value Reference Range Comments SODIUM (BEAKER) (test 139 meq/L 136-145 fcqn=660) POTASSIUM (BEAKER) (test 3.8 meq/L 3.5-5.1 Specimen slightly ziln=019) hemolyzed CHLORIDE (BEAKER) (test 99 meq/L 98-107 lyld=561) CO2 (BEAKER) (test 27 meq/L 22-29 vicy=461) BLOOD UREA NITROGEN 14 mg/dL 7-21 (BEAKER) (test zboy=706) CREATININE (BEAKER) (test 1.61 mg/dL 0.57-1.25 Specimen slightly dgpi=968) hemolyzed GLUCOSE RANDOM (BEAKER) 139 mg/dL 70-105 (test dexp=375) CALCIUM (BEAKER) (test 10.0 mg/dL 8.4-10.2 vttl=427) EGFR (BEAKER) (test 38 mL/min/1.73 sq m ESTIMATED GFR IS NOT gdcu=1510) ACCURATE CREATININE CLEARANCE IN PREDICTING GLOMERULAR FILTRATION RATE. ESTIMATED GFR IS NOT APPLICABLE FOR DIALYSIS PATIENTS. POCT-GLUCOSE [id number] 21:32:00 Test Item Value Reference Range Comments POC-GLUCOSE METER (BEAKER) 176 mg/dL 70-110 TESTED AT [address] (test chjk=0784) [place] [id number] POCT-GLUCOSE [id number] 17:22:00 Test Item Value Reference Range Comments POC-GLUCOSE METER (BEAKER) 232 mg/dL 70-110 TESTED AT [address] (test ywgr=8869) [place] [id number] POCT-GLUCOSE [id number] 12:47:00 Test Item Value Reference Range Comments POC-GLUCOSE METER (BEAKER) 162 mg/dL 70-110 TESTED AT [address] (test kpio=1054) [place] [id number] POCT-GLUCOSE [id number] 08:15:00 Test Item Value Reference Range Comments POC-GLUCOSE METER (BEAKER) 149 mg/dL 70-110 TESTED AT [address] (test cmhr=1933) [place] [address] [id number] 07:05:00 Test Item Value Reference Range Comments MAGNESIUM (BEAKER) (test zqge=834) 1.9 mg/dL 1.6-2.6 BASIC METABOLIC [id number] 07:05:00 Test Item Value Reference Range Comments SODIUM (BEAKER) (test 136 meq/L 136-145 tahx=459) POTASSIUM (BEAKER) (test 3.8 meq/L 3.5-5.1 vgeu=177) CHLORIDE (BEAKER) (test 98 meq/L 98-107 wvli=473) CO2 (BEAKER) (test 30 meq/L 22-29 obwt=303) BLOOD UREA NITROGEN 14 mg/dL 7-21 (BEAKER) (test zzhv=769) CREATININE (BEAKER) (test 1.56 mg/dL 0.57-1.25 pjnj=995) GLUCOSE RANDOM (BEAKER) 129 mg/dL 70-105 (test qpxi=859) CALCIUM (BEAKER) (test 9.8 mg/dL 8.4-10.2 pyuu=298) EGFR (BEAKER) (test 40 mL/min/1.73 sq m ESTIMATED GFR IS NOT kwld=1740) ACCURATE CREATININE CLEARANCE IN PREDICTING GLOMERULAR FILTRATION RATE. ESTIMATED GFR IS NOT APPLICABLE FOR DIALYSIS PATIENTS. POCT-GLUCOSE [id number] 20:56:00 Test Item Value Reference Range Comments POC-GLUCOSE METER (BEAKER) 112 mg/dL 70-110 TESTED AT [address] (test iwps=2652) [place] [id number] POCT-GLUCOSE [id number] 17:48:00 Test Item Value Reference Range Comments POC-GLUCOSE METER (BEAKER) 213 mg/dL 70-110 TESTED AT [address] (test ukxp=1054) [place] [address] POCT-GLUCOSE [id number] 11:40:00 Test Item Value Reference Range Comments POC-GLUCOSE METER (BEAKER) 208 mg/dL 70-110 TESTED AT [address] (test itaa=1334) [place] [address] POCT-GLUCOSE [id number] 07:43:00 Test Item Value Reference Range Comments POC-GLUCOSE METER (BEAKER) 144 mg/dL 70-110 TESTED AT [address] (test cetr=2279) [place] [address] [id number] 04:52:00 Test Item Value Reference Range Comments MAGNESIUM (BEAKER) (test 2.0 mg/dL 1.6-2.6 Specimen slightly hemolyzed njqe=269) BASIC METABOLIC [id number] 04:52:00 Test Item Value Reference Range Comments SODIUM (BEAKER) (test 133 meq/L 136-145 pisa=590) POTASSIUM (BEAKER) (test 4.7 meq/L 3.5-5.1 Specimen slightly bnuy=928) hemolyzed CHLORIDE (BEAKER) (test 97 meq/L 98-107 ghrd=044) CO2 (BEAKER) (test 25 meq/L 22-29 kqsa=317) BLOOD UREA NITROGEN 17 mg/dL 7-21 (BEAKER) (test vpjy=326) CREATININE (BEAKER) (test 1.63 mg/dL 0.57-1.25 Specimen slightly fsuk=318) hemolyzed GLUCOSE RANDOM (BEAKER) 141 mg/dL 70-105 (test ukts=023) CALCIUM (BEAKER) (test 9.8 mg/dL 8.4-10.2 gnfr=850) EGFR (BEAKER) (test 38 mL/min/1.73 sq m ESTIMATED GFR IS NOT oare=2165) ACCURATE CREATININE CLEARANCE IN PREDICTING GLOMERULAR FILTRATION RATE. ESTIMATED GFR IS NOT APPLICABLE FOR DIALYSIS PATIENTS. POCT-GLUCOSE [id number] 21:29:00 Test Item Value Reference Range Comments POC-GLUCOSE METER (BEAKER) 198 mg/dL 70-110 TESTED AT [address] (test hlja=8224) [place] [address] POCT-GLUCOSE [id number] 17:54:00 Test Item Value Reference Range Comments POC-GLUCOSE METER (BEAKER) 176 mg/dL 70-110 TESTED AT [facility] [address] [facility] (test cebk=0942) [facility] [address] POCT-GLUCOSE [id number] 07:05:00 Test Item Value Reference Range Comments POC-GLUCOSE METER (BEAKER) 137 mg/dL 70-110 TESTED AT [facility] [address] [facility] (test iuvd=7473) [facility] [address] [id number] 06:53:00 Test Item Value Reference Range Comments MAGNESIUM (BEAKER) (test xmcf=438) 2.0 mg/dL 1.6-2.6 BASIC METABOLIC [id number] 05:37:00 Test Item Value Reference Range Comments SODIUM (BEAKER) (test 136 meq/L 136-145 yqag=347) POTASSIUM (BEAKER) (test 3.7 meq/L 3.5-5.1 cdpc=348) CHLORIDE (BEAKER) (test 97 meq/L 98-107 tifz=600) CO2 (BEAKER) (test 30 meq/L 22-29 vpvn=962) BLOOD UREA NITROGEN 17 mg/dL 7-21 (BEAKER) (test rgny=566) CREATININE (BEAKER) (test 1.60 mg/dL 0.57-1.25 fipi=542) GLUCOSE RANDOM (BEAKER) 116 mg/dL 70-105 (test fkhi=046) CALCIUM (BEAKER) (test 9.4 mg/dL 8.4-10.2 uzfn=991) EGFR (BEAKER) (test 39 mL/min/1.73 sq m ESTIMATED GFR IS NOT zcrr=5246) ACCURATE CREATININE CLEARANCE IN PREDICTING GLOMERULAR FILTRATION RATE. ESTIMATED GFR IS NOT APPLICABLE FOR DIALYSIS PATIENTS. CBC W/PLT COUNT & AUTO [id number] 05:02:00 Test Item Value Reference Range Comments WHITE BLOOD CELL COUNT (BEAKER) (test efjs=527) 8.7 K/ L 3.5-10.5 RED BLOOD CELL COUNT (BEAKER) (test nwmp=419) 2.43 M/ L 3.93-5.22 HEMOGLOBIN (BEAKER) (test yceo=949) 7.5 GM/DL 11.2-15.7 HEMATOCRIT (BEAKER) (test qnme=374) 24.1 % 34.1-44.9 MEAN CORPUSCULAR VOLUME (BEAKER) (test becv=077) 99.2 fL 79.4-94.8 MEAN CORPUSCULAR HEMOGLOBIN (BEAKER) (test 30.9 pg 25.6-32.2 kmkt=281) MEAN CORPUSCULAR HEMOGLOBIN CONC (BEAKER) (test 31.1 GM/DL 32.2-35.5 bqch=608) RED CELL DISTRIBUTION WIDTH (BEAKER) (test 15.8 % 11.7-14.4 ahdv=655) PLATELET COUNT (BEAKER) (test dznl=217) 586 K/CU MM 150-450 MEAN PLATELET VOLUME (BEAKER) (test dhtd=055) 9.5 fL 9.4-12.3 NUCLEATED RED BLOOD CELLS (BEAKER) (test 0 /100 WBC 0-0 rcbu=612) NEUTROPHILS RELATIVE PERCENT (BEAKER) (test 74 % wtnk=660) LYMPHOCYTES RELATIVE PERCENT (BEAKER) (test 15 % gkap=434) MONOCYTES RELATIVE PERCENT (BEAKER) (test 8 % abpc=784) EOSINOPHILS RELATIVE PERCENT (BEAKER) (test 2 % jdii=136) BASOPHILS RELATIVE PERCENT (BEAKER) (test 1 % tbqj=839) NEUTROPHILS ABSOLUTE COUNT (BEAKER) (test 6.41 K/ L 1.56-6.13 ttjm=689) LYMPHOCYTES ABSOLUTE COUNT (BEAKER) (test 1.32 K/ L 1.18-3.74 pqjw=273) MONOCYTES ABSOLUTE COUNT (BEAKER) (test 0.65 K/ L 0.24-0.36 jehe=707) EOSINOPHILS ABSOLUTE COUNT (BEAKER) (test 0.20 K/ L 0.04-0.36 jdvo=076) BASOPHILS ABSOLUTE COUNT (BEAKER) (test 0.08 K/ L 0.01-0.08 decx=216) IMMATURE GRANULOCYTES-RELATIVE PERCENT (BEAKER) 0 % 0-1 (test lyuf=6190) POCT-GLUCOSE [id number] 21:28:00 Test Item Value Reference Range Comments POC-GLUCOSE METER (BEAKER) 216 mg/dL 70-110 TESTED AT [address] (test dqcv=0312) [place] [address] POCT-GLUCOSE [id number] 18:25:00 Test Item Value Reference Range Comments POC-GLUCOSE METER (BEAKER) 182 mg/dL 70-110 TESTED AT [address] (test lbuk=5226) [place] [address] POCT-GLUCOSE [id number] 09:37:00 Test Item Value Reference Range Comments POC-GLUCOSE METER (BEAKER) 155 mg/dL 70-110 TESTED AT [facility] [address] [facility] (test wpkp=8878) [facility] [address] CALCIUM, [id number] 07:37:00 Test Item Value Reference Range Comments CALCIUM IONIZED (BEAKER) (test merc=194) 1.11 mmol/L 1.12-1.27 PH, BLOOD (BEAKER) (test avvy=6963) 7.39 [id number] 07:10:00 Test Item Value Reference Range Comments FERRITIN (BEAKER) (test cwgc=588) 445 ng/mL 5-275 IRON, TIBC, % SAT. (WITHOUT FERRITIN)2017-08-04 07:04:00 Test Item Value Reference Range Comments IRON (BEAKER) (test eibr=810) 55 ug/dL 40-160 TOTAL IRON BINDING CAPACITY (BEAKER) (test 198 ug/dL 250-450 poxv=265) IRON % SATURATION (2) (BEAKER) (test wzhz=7632) 28 % 20-55 [id number] 06:57:00 Test Item Value Reference Range Comments PHOSPHORUS (BEAKER) (test kcuq=102) 4.3 mg/dL 2.3-4.7 [id number] 06:57:00 Test Item Value Reference Range Comments MAGNESIUM (BEAKER) (test rtix=690) 2.1 mg/dL 1.6-2.6 BASIC METABOLIC [id number] 06:57:00 Test Item Value Reference Range Comments SODIUM (BEAKER) (test 138 meq/L 136-145 mpat=140) POTASSIUM (BEAKER) (test 3.8 meq/L 3.5-5.1 mvhh=171) CHLORIDE (BEAKER) (test 99 meq/L 98-107 nkqd=847) CO2 (BEAKER) (test 29 meq/L 22-29 eaxl=414) BLOOD UREA NITROGEN 18 mg/dL 7-21 (BEAKER) (test ymta=494) CREATININE (BEAKER) (test 1.75 mg/dL 0.57-1.25 xrcm=741) GLUCOSE RANDOM (BEAKER) 138 mg/dL 70-105 (test jzsb=655) CALCIUM (BEAKER) (test 9.7 mg/dL 8.4-10.2 qeya=604) EGFR (BEAKER) (test 35 mL/min/1.73 sq m ESTIMATED GFR IS NOT uetc=0251) ACCURATE CREATININE CLEARANCE IN PREDICTING GLOMERULAR FILTRATION RATE. ESTIMATED GFR IS NOT APPLICABLE FOR DIALYSIS PATIENTS. B-TYPE NATRIURETIC FACTOR (BNP)2017-08-04 06:54:00 Test Item Value Reference Range Comments B-TYPE NATRIURETIC PEPTIDE (BEAKER) (test 778 pg/mL 0-100 ehwi=428) RETICULOCYTE [id number] 06:39:00 Test Item Value Reference Range Comments RETICULOCYTE COUNT PCT (BEAKER) (test zoct=828) 8.3 % 0.5-1.7 CBC W/PLT COUNT & AUTO [id number] 06:39:00 Test Item Value Reference Range Comments WHITE BLOOD CELL COUNT (BEAKER) (test bubu=710) 9.0 K/ L 3.5-10.5 RED BLOOD CELL COUNT (BEAKER) (test hqfw=607) 2.55 M/ L 3.93-5.22 HEMOGLOBIN (BEAKER) (test xsyf=879) 7.8 GM/DL 11.2-15.7 HEMATOCRIT (BEAKER) (test jmla=291) 25.4 % 34.1-44.9 MEAN CORPUSCULAR VOLUME (BEAKER) (test vyem=418) 99.6 fL 79.4-94.8 MEAN CORPUSCULAR HEMOGLOBIN (BEAKER) (test 30.6 pg 25.6-32.2 dayl=770) MEAN CORPUSCULAR HEMOGLOBIN CONC (BEAKER) (test 30.7 GM/DL 32.2-35.5 tidr=320) RED CELL DISTRIBUTION WIDTH (BEAKER) (test 15.9 % 11.7-14.4 gvtm=351) PLATELET COUNT (BEAKER) (test jxjx=869) 591 K/CU MM 150-450 MEAN PLATELET VOLUME (BEAKER) (test vrez=783) 9.5 fL 9.4-12.3 NUCLEATED RED BLOOD CELLS (BEAKER) (test 0 /100 WBC 0-0 gyxt=822) NEUTROPHILS RELATIVE PERCENT (BEAKER) (test 77 % nica=073) LYMPHOCYTES RELATIVE PERCENT (BEAKER) (test 13 % fwmx=569) MONOCYTES RELATIVE PERCENT (BEAKER) (test 7 % rrdh=419) EOSINOPHILS RELATIVE PERCENT (BEAKER) (test 2 % ubwp=102) BASOPHILS RELATIVE PERCENT (BEAKER) (test 1 % ytyf=038) NEUTROPHILS ABSOLUTE COUNT (BEAKER) (test 6.97 K/ L 1.56-6.13 ztoe=029) LYMPHOCYTES ABSOLUTE COUNT (BEAKER) (test 1.13 K/ L 1.18-3.74 hfeh=937) MONOCYTES ABSOLUTE COUNT (BEAKER) (test 0.65 K/ L 0.24-0.36 rrrl=127) EOSINOPHILS ABSOLUTE COUNT (BEAKER) (test 0.18 K/ L 0.04-0.36 iymi=943) BASOPHILS ABSOLUTE COUNT (BEAKER) (test 0.07 K/ L 0.01-0.08 zmtm=677) IMMATURE GRANULOCYTES-RELATIVE PERCENT (BEAKER) 0 % 0-1 (test xjcu=1735) POCT-GLUCOSE [id number] 20:56:00 Test Item Value Reference Range Comments POC-GLUCOSE METER (BEAKER) 167 mg/dL 70-110 TESTED AT [address] (test euzr=4718) [place] [address] POCT-GLUCOSE [id number] 16:36:00 Test Item Value Reference Range Comments POC-GLUCOSE METER (BEAKER) 200 mg/dL 70-110 TESTED AT [address] (test suys=5079) [place] [address] POCT-GLUCOSE [id number] 12:59:00 Test Item Value Reference Range Comments POC-GLUCOSE METER (BEAKER) 202 mg/dL 70-110 TESTED AT [address] (test eoqb=6675) [place] [address] POCT-GLUCOSE [id number] 07:37:00 Test Item Value Reference Range Comments POC-GLUCOSE METER (BEAKER) 154 mg/dL 70-110 TESTED AT [address] (test tdij=9789) [place] [address] CBC W/PLT COUNT & AUTO [id number] 06:49:00 Test Item Value Reference Range Comments WHITE BLOOD CELL COUNT (BEAKER) (test dght=555) 9.8 K/ L 3.5-10.5 RED BLOOD CELL COUNT (BEAKER) (test zrnt=148) 2.62 M/ L 3.93-5.22 HEMOGLOBIN (BEAKER) (test saas=770) 8.1 GM/DL 11.2-15.7 HEMATOCRIT (BEAKER) (test rhqv=927) 25.9 % 34.1-44.9 MEAN CORPUSCULAR VOLUME (BEAKER) (test zpda=737) 98.9 fL 79.4-94.8 MEAN CORPUSCULAR HEMOGLOBIN (BEAKER) (test 30.9 pg 25.6-32.2 sjbf=210) MEAN CORPUSCULAR HEMOGLOBIN CONC (BEAKER) (test 31.3 GM/DL 32.2-35.5 offb=305) RED CELL DISTRIBUTION WIDTH (BEAKER) (test 15.8 % 11.7-14.4 wmbg=250) PLATELET COUNT (BEAKER) (test rhwl=428) 667 K/CU MM 150-450 MEAN PLATELET VOLUME (BEAKER) (test gebi=954) 9.4 fL 9.4-12.3 NUCLEATED RED BLOOD CELLS (BEAKER) (test 0 /100 WBC 0-0 nmot=331) NEUTROPHILS RELATIVE PERCENT (BEAKER) (test 77 % uomy=416) LYMPHOCYTES RELATIVE PERCENT (BEAKER) (test 13 % nyks=228) MONOCYTES RELATIVE PERCENT (BEAKER) (test 7 % msty=679) EOSINOPHILS RELATIVE PERCENT (BEAKER) (test 2 % cmya=169) BASOPHILS RELATIVE PERCENT (BEAKER) (test 1 % keoa=553) NEUTROPHILS ABSOLUTE COUNT (BEAKER) (test 7.57 K/ L 1.56-6.13 piwh=092) LYMPHOCYTES ABSOLUTE COUNT (BEAKER) (test 1.23 K/ L 1.18-3.74 cqyk=626) MONOCYTES ABSOLUTE COUNT (BEAKER) (test 0.69 K/ L 0.24-0.36 ohpc=982) EOSINOPHILS ABSOLUTE COUNT (BEAKER) (test 0.16 K/ L 0.04-0.36 lnwx=001) BASOPHILS ABSOLUTE COUNT (BEAKER) (test 0.08 K/ L 0.01-0.08 nmhr=535) IMMATURE GRANULOCYTES-RELATIVE PERCENT (BEAKER) 1 % 0-1 (test boro=9209) CALCIUM, [id number] 06:38:00 Test Item Value Reference Range Comments CALCIUM IONIZED (BEAKER) (test hcqq=062) 1.07 mmol/L 1.12-1.27 PH, BLOOD (BEAKER) (test wujl=8113) 7.42 [id number] 06:08:00 Test Item Value Reference Range Comments PHOSPHORUS (BEAKER) (test wtte=023) 4.3 mg/dL 2.3-4.7 [id number] 06:08:00 Test Item Value Reference Range Comments MAGNESIUM (BEAKER) (test cjld=919) 2.4 mg/dL 1.6-2.6 BASIC METABOLIC [id number] 06:08:00 Test Item Value Reference Range Comments SODIUM (BEAKER) (test 138 meq/L 136-145 bsny=007) POTASSIUM (BEAKER) (test 4.0 meq/L 3.5-5.1 ejaj=764) CHLORIDE (BEAKER) (test 99 meq/L 98-107 ubpp=577) CO2 (BEAKER) (test 29 meq/L 22-29 paef=891) BLOOD UREA NITROGEN 15 mg/dL 7-21 (BEAKER) (test bjbg=095) CREATININE (BEAKER) (test 1.64 mg/dL 0.57-1.25 mnwi=690) GLUCOSE RANDOM (BEAKER) 135 mg/dL 70-105 (test qkuh=450) CALCIUM (BEAKER) (test 9.5 mg/dL 8.4-10.2 cxos=201) EGFR (BEAKER) (test 38 mL/min/1.73 sq m ESTIMATED GFR IS NOT rtek=2397) ACCURATE CREATININE CLEARANCE IN PREDICTING GLOMERULAR FILTRATION RATE. ESTIMATED GFR IS NOT APPLICABLE FOR DIALYSIS PATIENTS. POCT-GLUCOSE [id number] 21:13:00 Test Item Value Reference Range Comments POC-GLUCOSE METER (BEAKER) 145 mg/dL 70-110 TESTED AT [address] (test phqq=1347) [facility] [address] POCT-GLUCOSE [id number] 17:08:00 Test Item Value Reference Range Comments POC-GLUCOSE METER (BEAKER) 134 mg/dL 70-110 TESTED AT [address] (test ptms=3369) [facility] [address] POCT-GLUCOSE [id number] 11:44:00 Test Item Value Reference Range Comments POC-GLUCOSE METER (BEAKER) 159 mg/dL 70-110 TESTED AT [address] (test waed=9846) [facility] [address] POCT-GLUCOSE [id number] 08:07:00 Test Item Value Reference Range Comments POC-GLUCOSE METER (BEAKER) 152 mg/dL 70-110 TESTED AT [facility] [address] [facility] (test ufad=0207) [facility] [address] CALCIUM, [id number] 05:26:00 Test Item Value Reference Range Comments CALCIUM IONIZED (BEAKER) (test izfn=525) 1.10 mmol/L 1.12-1.27 PH, BLOOD (BEAKER) (test twvr=3585) 7.42 [id number] 05:05:00 Test Item Value Reference Range Comments PHOSPHORUS (BEAKER) (test hvpu=824) 4.6 mg/dL 2.3-4.7 [id number] 05:05:00 Test Item Value Reference Range Comments MAGNESIUM (BEAKER) (test vomx=262) 1.6 mg/dL 1.6-2.6 COMPREHENSIVE METABOLIC [id number] 05:05:00 Test Item Value Reference Range Comments TOTAL PROTEIN (BEAKER) 6.9 gm/dL 6.0-8.3 (test kmov=977) ALBUMIN (BEAKER) (test 3.2 g/dL 3.5-5.0 cqxt=2943) ALKALINE PHOSPHATASE 55 U/L 40-150 (BEAKER) (test hzuw=826) BILIRUBIN TOTAL (BEAKER) 0.6 mg/dL 0.2-1.2 (test tmek=708) SODIUM (BEAKER) (test 139 meq/L 136-145 rasi=512) POTASSIUM (BEAKER) (test 3.9 meq/L 3.5-5.1 akud=659) CHLORIDE (BEAKER) (test 100 meq/L 98-107 dyps=600) CO2 (BEAKER) (test 27 meq/L 22-29 khht=202) BLOOD UREA NITROGEN 15 mg/dL 7-21 (BEAKER) (test ymzy=750) CREATININE (BEAKER) (test 1.55 mg/dL 0.57-1.25 rwpq=231) GLUCOSE RANDOM (BEAKER) 125 mg/dL 70-105 (test bidz=957) CALCIUM (BEAKER) (test 9.2 mg/dL 8.4-10.2 suam=022) AST (SGOT) (BEAKER) (test 16 U/L 5-34 liij=624) ALT (SGPT) (BEAKER) (test 11 U/L 6-55 dcvx=889) EGFR (BEAKER) (test 40 mL/min/1.73 sq m ESTIMATED GFR IS NOT groa=2700) ACCURATE CREATININE CLEARANCE IN PREDICTING GLOMERULAR FILTRATION RATE. ESTIMATED GFR IS NOT APPLICABLE FOR DIALYSIS PATIENTS. CBC W/PLT COUNT & AUTO [id number] 04:57:00 Test Item Value Reference Range Comments WHITE BLOOD CELL COUNT (BEAKER) (test curx=960) 10.8 K/ L 3.5-10.5 RED BLOOD CELL COUNT (BEAKER) (test htmi=547) 2.57 M/ L 3.93-5.22 HEMOGLOBIN (BEAKER) (test kmgq=643) 7.9 GM/DL 11.2-15.7 HEMATOCRIT (BEAKER) (test vqpc=808) 25.2 % 34.1-44.9 MEAN CORPUSCULAR VOLUME (BEAKER) (test jvfj=896) 98.1 fL 79.4-94.8 MEAN CORPUSCULAR HEMOGLOBIN (BEAKER) (test 30.7 pg 25.6-32.2 eqyk=409) MEAN CORPUSCULAR HEMOGLOBIN CONC (BEAKER) (test 31.3 GM/DL 32.2-35.5 ncpp=619) RED CELL DISTRIBUTION WIDTH (BEAKER) (test 15.9 % 11.7-14.4 itzk=808) PLATELET COUNT (BEAKER) (test ivyj=763) 623 K/CU MM 150-450 MEAN PLATELET VOLUME (BEAKER) (test qdty=706) 9.4 fL 9.4-12.3 NUCLEATED RED BLOOD CELLS (BEAKER) (test 0 /100 WBC 0-0 rnts=629) NEUTROPHILS RELATIVE PERCENT (BEAKER) (test 79 % nqup=550) LYMPHOCYTES RELATIVE PERCENT (BEAKER) (test 12 % gbky=459) MONOCYTES RELATIVE PERCENT (BEAKER) (test 7 % mfuf=474) EOSINOPHILS RELATIVE PERCENT (BEAKER) (test 2 % hnrc=971) BASOPHILS RELATIVE PERCENT (BEAKER) (test 1 % auky=302) NEUTROPHILS ABSOLUTE COUNT (BEAKER) (test 8.49 K/ L 1.56-6.13 pyaq=101) LYMPHOCYTES ABSOLUTE COUNT (BEAKER) (test 1.28 K/ L 1.18-3.74 tzje=989) MONOCYTES ABSOLUTE COUNT (BEAKER) (test 0.74 K/ L 0.24-0.36 pkdh=886) EOSINOPHILS ABSOLUTE COUNT (BEAKER) (test 0.18 K/ L 0.04-0.36 tttu=000) BASOPHILS ABSOLUTE COUNT (BEAKER) (test 0.05 K/ L 0.01-0.08 gopb=408) IMMATURE GRANULOCYTES-RELATIVE PERCENT (BEAKER) 1 % 0-1 (test scoz=4020) POCT-GLUCOSE [id number] 01:29:00 Test Item Value Reference Range Comments POC-GLUCOSE METER (BEAKER) 182 mg/dL 70-110 TESTED AT [address] (test vddx=1676) [place] [address] POCT-GLUCOSE [id number] 22:32:00 Test Item Value Reference Range Comments POC-GLUCOSE METER (BEAKER) 204 mg/dL 70-110 TESTED AT [address] (test zvxo=5476) [place] [address] POCT-GLUCOSE [id number] 18:53:00 Test Item Value Reference Range Comments POC-GLUCOSE METER (BEAKER) 154 mg/dL 70-110 TESTED AT [address] (test mpea=0123) [place] [id number] POCT-GLUCOSE [id number] 15:50:00 Test Item Value Reference Range Comments POC-GLUCOSE METER (BEAKER) 172 mg/dL 70-110 TESTED AT [address] (test jdys=0570) [place] [address] B-TYPE NATRIURETIC FACTOR (BNP)2017-08-01 15:41:00 Test Item Value Reference Range Comments B-TYPE NATRIURETIC PEPTIDE (BEAKER) (test 1253 pg/mL 0-100 wfdp=916) RAD, CHEST, 1 VIEW, NON [id number] 15:00:00Reason for exam:->SOBShould this be performed at the bedside?->YesFINAL REPORT Chest one view compared to July 28, 2017 Discussion: There is cardiac prominence. Lungs are grossly clear. No effusion or pneumothorax. There is either hiatal hernia or aortic tortuosity. IMPRESSIONS: No significant change. Signed: Nisbet, Tony MDReport Verified Date/Time: 08/01/2017 15:00:05 Reading Location: [facility] [id number] Consult Reading Room Electronicallysigned by: TONY HSU M.D. on 08/01/2017 03:00 PMPOCT-GLUCOSE [id number] 09:28:00 Test Item Value Reference Range Comments POC-GLUCOSE METER (BEAKER) 155 mg/dL 70-110 TESTED AT [facility] [address] [facility] (test ygsq=9761) [facility] [address] BASIC METABOLIC [id number] 08:00:00 Test Item Value Reference Range Comments SODIUM (BEAKER) (test 138 meq/L 136-145 lmfq=576) POTASSIUM (BEAKER) (test 3.8 meq/L 3.5-5.1 qjnm=710) CHLORIDE (BEAKER) (test 100 meq/L 98-107 geeg=495) CO2 (BEAKER) (test 27 meq/L 22-29 yaqn=191) BLOOD UREA NITROGEN 14 mg/dL 7-21 (BEAKER) (test idxu=036) CREATININE (BEAKER) (test 1.47 mg/dL 0.57-1.25 pvnm=996) GLUCOSE RANDOM (BEAKER) 150 mg/dL 70-105 (test zkes=325) CALCIUM (BEAKER) (test 9.0 mg/dL 8.4-10.2 jfua=610) EGFR (BEAKER) (test 43 mL/min/1.73 sq m ESTIMATED GFR IS NOT qrvk=9906) ACCURATE CREATININE CLEARANCE IN PREDICTING GLOMERULAR FILTRATION RATE. ESTIMATED GFR IS NOT APPLICABLE FOR DIALYSIS PATIENTS. CBC W/PLT COUNT & AUTO [id number] 07:54:00 Test Item Value Reference Range Comments WHITE BLOOD CELL COUNT (BEAKER) (test iitx=549) 12.4 K/ L 3.5-10.5 RED BLOOD CELL COUNT (BEAKER) (test jgid=079) 2.57 M/ L 3.93-5.22 HEMOGLOBIN (BEAKER) (test qoku=761) 7.7 GM/DL 11.2-15.7 HEMATOCRIT (BEAKER) (test buoz=011) 25.0 % 34.1-44.9 MEAN CORPUSCULAR VOLUME (BEAKER) (test huuu=294) 97.3 fL 79.4-94.8 MEAN CORPUSCULAR HEMOGLOBIN (BEAKER) (test 30.0 pg 25.6-32.2 uzsp=341) MEAN CORPUSCULAR HEMOGLOBIN CONC (BEAKER) (test 30.8 GM/DL 32.2-35.5 qxop=845) RED CELL DISTRIBUTION WIDTH (BEAKER) (test 15.8 % 11.7-14.4 otsr=863) PLATELET COUNT (BEAKER) (test iavj=803) 582 K/CU MM 150-450 MEAN PLATELET VOLUME (BEAKER) (test fijq=867) 9.5 fL 9.4-12.3 NUCLEATED RED BLOOD CELLS (BEAKER) (test 0 /100 WBC 0-0 zvzg=659) NEUTROPHILS RELATIVE PERCENT (BEAKER) (test 82 % htkr=235) LYMPHOCYTES RELATIVE PERCENT (BEAKER) (test 10 % novn=088) MONOCYTES RELATIVE PERCENT (BEAKER) (test 6 % yxfu=958) EOSINOPHILS RELATIVE PERCENT (BEAKER) (test 1 % quzm=796) BASOPHILS RELATIVE PERCENT (BEAKER) (test 1 % stgi=958) NEUTROPHILS ABSOLUTE COUNT (BEAKER) (test 10.08 K/ L 1.56-6.13 vqrg=299) LYMPHOCYTES ABSOLUTE COUNT (BEAKER) (test 1.19 K/ L 1.18-3.74 ivcn=898) MONOCYTES ABSOLUTE COUNT (BEAKER) (test 0.74 K/ L 0.24-0.36 nvco=898) EOSINOPHILS ABSOLUTE COUNT (BEAKER) (test 0.16 K/ L 0.04-0.36 mfyd=677) BASOPHILS ABSOLUTE COUNT (BEAKER) (test 0.10 K/ L 0.01-0.08 dycz=590) IMMATURE GRANULOCYTES-RELATIVE PERCENT (BEAKER) 1 % 0-1 (test exsg=0847) POCT-GLUCOSE [id number] 21:34:00 Test Item Value Reference Range Comments POC-GLUCOSE METER (BEAKER) 153 mg/dL 70-110 TESTED AT [address] (test myyk=6023) [place] [address] POCT-GLUCOSE [id number] 17:34:00 Test Item Value Reference Range Comments POC-GLUCOSE METER (BEAKER) 165 mg/dL 70-110 TESTED AT [address] (test teyf=0074) [place] [address] POCT-GLUCOSE [id number] 14:33:00 Test Item Value Reference Range Comments POC-GLUCOSE METER (BEAKER) 208 mg/dL 70-110 TESTED AT [address] (test jpxm=6652) [place] [id number] POCT-GLUCOSE [id number] 12:54:00 Test Item Value Reference Range Comments POC-GLUCOSE METER (BEAKER) 218 mg/dL 70-110 TESTED AT [address] (test hloh=7020) [place] [id number] POCT-GLUCOSE [id number] 10:34:00 Test Item Value Reference Range Comments POC-GLUCOSE METER (BEAKER) 204 mg/dL 70-110 TESTED AT [address] (test egsr=6400) [place] [id number] POCT-GLUCOSE [id number] 08:41:00 Test Item Value Reference Range Comments POC-GLUCOSE METER (BEAKER) 201 mg/dL 70-110 TESTED AT [address] (test rvfp=9297) [place] [address] [id number] 05:54:00 Test Item Value Reference Range Comments MAGNESIUM (BEAKER) (test bfvm=381) 1.8 mg/dL 1.6-2.6 BASIC METABOLIC [id number] 05:54:00 Test Item Value Reference Range Comments SODIUM (BEAKER) (test 138 meq/L 136-145 uuzf=746) POTASSIUM (BEAKER) (test 3.6 meq/L 3.5-5.1 tfjd=362) CHLORIDE (BEAKER) (test 100 meq/L 98-107 jalh=682) CO2 (BEAKER) (test 25 meq/L 22-29 pyos=109) BLOOD UREA NITROGEN 14 mg/dL 7-21 (BEAKER) (test rxqv=729) CREATININE (BEAKER) (test 1.42 mg/dL 0.57-1.25 xoni=319) GLUCOSE RANDOM (BEAKER) 145 mg/dL 70-105 (test mawe=417) CALCIUM (BEAKER) (test 9.4 mg/dL 8.4-10.2 ailh=200) EGFR (BEAKER) (test 44 mL/min/1.73 sq m ESTIMATED GFR IS NOT vzsl=0956) ACCURATE CREATININE CLEARANCE IN PREDICTING GLOMERULAR FILTRATION RATE. ESTIMATED GFR IS NOT APPLICABLE FOR DIALYSIS PATIENTS. CBC (HEMOGRAM ONLY)2017-07-31 05:42:00 Test Item Value Reference Range Comments WHITE BLOOD CELL COUNT (BEAKER) (test ludw=448) 13.3 K/ L 3.5-10.5 RED BLOOD CELL COUNT (BEAKER) (test sxae=635) 2.65 M/ L 3.93-5.22 HEMOGLOBIN (BEAKER) (test ztms=905) 7.9 GM/DL 11.2-15.7 HEMATOCRIT (BEAKER) (test kjsh=776) 25.9 % 34.1-44.9 MEAN CORPUSCULAR VOLUME (BEAKER) (test afpk=896) 97.7 fL 79.4-94.8 MEAN CORPUSCULAR HEMOGLOBIN (BEAKER) (test 29.8 pg 25.6-32.2 zztd=801) MEAN CORPUSCULAR HEMOGLOBIN CONC (BEAKER) (test 30.5 GM/DL 32.2-35.5 jgdo=849) RED CELL DISTRIBUTION WIDTH (BEAKER) (test 15.3 % 11.7-14.4 ezio=405) PLATELET COUNT (BEAKER) (test euxu=851) 580 K/CU MM 150-450 MEAN PLATELET VOLUME (BEAKER) (test lntl=638) 9.7 fL 9.4-12.3 NUCLEATED RED BLOOD CELLS (BEAKER) (test 0 /100 WBC 0-0 mtuf=302) POCT-GLUCOSE [id number] 21:21:00 Test Item Value Reference Range Comments POC-GLUCOSE METER (BEAKER) 206 mg/dL 70-110 TESTED AT [address] (test mqow=0651) [facility] [address] POCT-GLUCOSE [id number] 17:50:00 Test Item Value Reference Range Comments POC-GLUCOSE METER (BEAKER) 160 mg/dL 70-110 TESTED AT [address] (test lqfr=9236) [facility] [address] POCT-GLUCOSE [id number] 12:12:00 Test Item Value Reference Range Comments POC-GLUCOSE METER (BEAKER) 214 mg/dL 70-110 TESTED AT [address] (test ncna=2443) [facility] [address] POCT-GLUCOSE [id number] 07:59:00 Test Item Value Reference Range Comments POC-GLUCOSE METER (BEAKER) 146 mg/dL 70-110 TESTED AT [facility] [address] (test woij=1029) [place] [address] CALCIUM, [id number] 07:23:00 Test Item Value Reference Range Comments CALCIUM IONIZED (BEAKER) (test bwuu=883) 1.11 mmol/L 1.12-1.27 PH, BLOOD (BEAKER) (test qbyc=0828) 7.42 [id number] 07:07:00 Test Item Value Reference Range Comments PHOSPHORUS (BEAKER) (test jkzy=104) 3.5 mg/dL 2.3-4.7 [id number] 07:07:00 Test Item Value Reference Range Comments MAGNESIUM (BEAKER) (test gflp=679) 1.8 mg/dL 1.6-2.6 COMPREHENSIVE METABOLIC [id number] 07:07:00 Test Item Value Reference Range Comments TOTAL PROTEIN (BEAKER) 6.7 gm/dL 6.0-8.3 (test bccw=828) ALBUMIN (BEAKER) (test 3.1 g/dL 3.5-5.0 qagv=5684) ALKALINE PHOSPHATASE 53 U/L 40-150 (BEAKER) (test binx=554) BILIRUBIN TOTAL (BEAKER) 0.6 mg/dL 0.2-1.2 (test qyss=702) SODIUM (BEAKER) (test 139 meq/L 136-145 aimg=888) POTASSIUM (BEAKER) (test 4.0 meq/L 3.5-5.1 ndmg=544) CHLORIDE (BEAKER) (test 103 meq/L 98-107 rrip=924) CO2 (BEAKER) (test 27 meq/L 22-29 pecw=271) BLOOD UREA NITROGEN 16 mg/dL 7-21 (BEAKER) (test bkqo=470) CREATININE (BEAKER) (test 1.34 mg/dL 0.57-1.25 ajxi=115) GLUCOSE RANDOM (BEAKER) 116 mg/dL 70-105 (test dypi=210) CALCIUM (BEAKER) (test 9.2 mg/dL 8.4-10.2 lifr=517) AST (SGOT) (BEAKER) (test 15 U/L 5-34 xxxj=809) ALT (SGPT) (BEAKER) (test 11 U/L 6-55 xaxd=722) EGFR (BEAKER) (test 47 mL/min/1.73 sq m ESTIMATED GFR IS NOT oqwe=3764) ACCURATE CREATININE CLEARANCE IN PREDICTING GLOMERULAR FILTRATION RATE. ESTIMATED GFR IS NOT APPLICABLE FOR DIALYSIS PATIENTS. CBC W/PLT COUNT & AUTO [id number] 06:52:00 Test Item Value Reference Range Comments WHITE BLOOD CELL COUNT (BEAKER) (test vrms=699) 12.8 K/ L 3.5-10.5 RED BLOOD CELL COUNT (BEAKER) (test owus=233) 2.43 M/ L 3.93-5.22 HEMOGLOBIN (BEAKER) (test zwib=276) 7.2 GM/DL 11.2-15.7 HEMATOCRIT (BEAKER) (test awln=516) 23.8 % 34.1-44.9 MEAN CORPUSCULAR VOLUME (BEAKER) (test vvkz=032) 97.9 fL 79.4-94.8 MEAN CORPUSCULAR HEMOGLOBIN (BEAKER) (test 29.6 pg 25.6-32.2 omyv=014) MEAN CORPUSCULAR HEMOGLOBIN CONC (BEAKER) (test 30.3 GM/DL 32.2-35.5 uubi=818) RED CELL DISTRIBUTION WIDTH (BEAKER) (test 15.0 % 11.7-14.4 zmbg=379) PLATELET COUNT (BEAKER) (test rfnr=406) 456 K/CU MM 150-450 MEAN PLATELET VOLUME (BEAKER) (test bunv=616) 10.3 fL 9.4-12.3 NUCLEATED RED BLOOD CELLS (BEAKER) (test 0 /100 WBC 0-0 daal=955) NEUTROPHILS RELATIVE PERCENT (BEAKER) (test 82 % ephk=878) LYMPHOCYTES RELATIVE PERCENT (BEAKER) (test 9 % grgh=003) MONOCYTES RELATIVE PERCENT (BEAKER) (test 6 % hmbl=598) EOSINOPHILS RELATIVE PERCENT (BEAKER) (test 2 % qoxq=224) BASOPHILS RELATIVE PERCENT (BEAKER) (test 0 % ewqr=144) NEUTROPHILS ABSOLUTE COUNT (BEAKER) (test 10.52 K/ L 1.56-6.13 ergc=210) LYMPHOCYTES ABSOLUTE COUNT (BEAKER) (test 1.19 K/ L 1.18-3.74 cffj=677) MONOCYTES ABSOLUTE COUNT (BEAKER) (test 0.73 K/ L 0.24-0.36 tzsb=342) EOSINOPHILS ABSOLUTE COUNT (BEAKER) (test 0.22 K/ L 0.04-0.36 yamv=778) BASOPHILS ABSOLUTE COUNT (BEAKER) (test 0.04 K/ L 0.01-0.08 tzxs=106) IMMATURE GRANULOCYTES-RELATIVE PERCENT (BEAKER) 1 % 0-1 (test xmjk=9939) POCT-GLUCOSE [id number] 21:47:00 Test Item Value Reference Range Comments POC-GLUCOSE METER (BEAKER) 106 mg/dL 70-110 TESTED AT [address] (test hdsb=7739) [place] [address] POCT-GLUCOSE [id number] 18:50:00 Test Item Value Reference Range Comments POC-GLUCOSE METER (BEAKER) 175 mg/dL 70-110 TESTED AT [address] (test wsrf=5681) [place] [address] [id number] 15:18:00 Test Item Value Reference Range Comments POTASSIUM (BEAKER) (test teqm=287) 3.7 meq/L 3.5-5.1 [id number] 15:18:00 Test Item Value Reference Range Comments MAGNESIUM (BEAKER) (test wmle=587) 2.2 mg/dL 1.6-2.6 POCT-GLUCOSE [id number] 11:48:00 Test Item Value Reference Range Comments POC-GLUCOSE METER (BEAKER) 131 mg/dL 70-110 TESTED AT [address] (test qnng=8183) [place] [address] BLOOD GAS, [id number] 11:46:00 Test Item Value Reference Range Comments PH ARTERIAL (BEAKER) (test nnjs=708) 7.43 7.35-7.45 PCO2 ARTERIAL (BEAKER) (test yztp=643) 46 mmHg 35-45 PO2 ARTERIAL (BEAKER) (test qrsk=540) 83 mmHg 80-90 O2 SATURATION ARTERIAL (BEAKER) (test ricw=731) 96.5 % 96.0-97.0 HCO3 ARTERIAL (BEAKER) (test bmhn=141) 30 mmol/L 21-29 BASE EXCESS ARTERIAL (BEAKER) (test tifc=409) 4.8 mmol/L -2.0-3.0 PATIENT TEMPERATURE (BEAKER) (test mcjn=5748) 36.9 C FIO2 (BEAKER) (test ymnb=3833) 36.0 % POCT-GLUCOSE [id number] 08:29:00 Test Item Value Reference Range Comments POC-GLUCOSE METER (BEAKER) 129 mg/dL 70-110 TESTED AT [facility] [address] (test ssnh=1366) [place] [address] CALCIUM, [id number] 04:18:00 Test Item Value Reference Range Comments CALCIUM IONIZED (BEAKER) (test rjpm=388) 1.11 mmol/L 1.12-1.27 PH, BLOOD (BEAKER) (test opvt=2402) 7.40 B-TYPE NATRIURETIC FACTOR (BNP)2017-07-29 04:06:00 Test Item Value Reference Range Comments B-TYPE NATRIURETIC PEPTIDE (BEAKER) (test 982 pg/mL 0-100 sjzp=229) [id number] 03:59:00 Test Item Value Reference Range Comments PHOSPHORUS (BEAKER) (test sxqn=773) 3.6 mg/dL 2.3-4.7 [id number] 03:59:00 Test Item Value Reference Range Comments MAGNESIUM (BEAKER) (test qvmx=510) 1.9 mg/dL 1.6-2.6 BASIC METABOLIC [id number] 03:59:00 Test Item Value Reference Range Comments SODIUM (BEAKER) (test 141 meq/L 136-145 xhjg=853) POTASSIUM (BEAKER) (test 3.1 meq/L 3.5-5.1 mxmp=862) CHLORIDE (BEAKER) (test 103 meq/L 98-107 qtwg=769) CO2 (BEAKER) (test 26 meq/L 22-29 tvaz=847) BLOOD UREA NITROGEN 17 mg/dL 7-21 (BEAKER) (test ihey=696) CREATININE (BEAKER) (test 1.43 mg/dL 0.57-1.25 zhuf=819) GLUCOSE RANDOM (BEAKER) 110 mg/dL 70-105 (test vhca=067) CALCIUM (BEAKER) (test 9.0 mg/dL 8.4-10.2 wnbw=281) EGFR (BEAKER) (test 44 mL/min/1.73 sq m ESTIMATED GFR IS NOT tkcf=2573) ACCURATE CREATININE CLEARANCE IN PREDICTING GLOMERULAR FILTRATION RATE. ESTIMATED GFR IS NOT APPLICABLE FOR DIALYSIS PATIENTS. CBC (HEMOGRAM ONLY)2017-07-29 03:51:00 Test Item Value Reference Range Comments WHITE BLOOD CELL COUNT (BEAKER) (test wyzr=705) 12.2 K/ L 3.5-10.5 RED BLOOD CELL COUNT (BEAKER) (test bphs=892) 2.48 M/ L 3.93-5.22 HEMOGLOBIN (BEAKER) (test sidz=838) 7.4 GM/DL 11.2-15.7 HEMATOCRIT (BEAKER) (test uiil=183) 24.2 % 34.1-44.9 MEAN CORPUSCULAR VOLUME (BEAKER) (test cbyr=152) 97.6 fL 79.4-94.8 MEAN CORPUSCULAR HEMOGLOBIN (BEAKER) (test 29.8 pg 25.6-32.2 dsdn=575) MEAN CORPUSCULAR HEMOGLOBIN CONC (BEAKER) (test 30.6 GM/DL 32.2-35.5 jldd=023) RED CELL DISTRIBUTION WIDTH (BEAKER) (test 15.1 % 11.7-14.4 fcno=460) PLATELET COUNT (BEAKER) (test jgqp=912) 410 K/CU MM 150-450 MEAN PLATELET VOLUME (BEAKER) (test jnfd=209) 10.2 fL 9.4-12.3 NUCLEATED RED BLOOD CELLS (BEAKER) (test 0 /100 WBC 0-0 hfmx=297) POCT-GLUCOSE [id number] 23:55:00 Test Item Value Reference Range Comments POC-GLUCOSE METER (BEAKER) 164 mg/dL 70-110 TESTED AT [facility] [address] [facility] (test zrsk=3234) [facility] [address] HERPES VIRUS ANTIBODY, [id number] 11:02:00 Test Item Value Reference Range Comments HERPES VIRUS IGM (BEAKER) (test wwbr=1431) Negative HSV IgM 1=NEGATIVEHSV IgM 2=NEGATIVETOXOPLASMA GONDII ANTIBODY, [id number] 11 :02:00 Test Item Value Reference Range Comments TOXOPLASMA IGM ANTIBODY (BEAKER) (test ofoe=450) Negative RAD, CHEST, 1 VIEW, NON [id number] 10:48:00Reason for exam:->acute respiratory insufficiencyShould this be [...] Date/Time: 07/28/2017 10:48:24 Reading Location: [facility] Radiology Reading Room [id number] 05:13:00 Test Item Value Reference Range Comments PHOSPHORUS (BEAKER) (test ydgt=879) 3.3 mg/dL 2.3-4.7 [id number] 05:13:00 Test Item Value Reference Range Comments MAGNESIUM (BEAKER) (test osac=044) 1.9 mg/dL 1.6-2.6 HEPATIC FUNCTION [id number] 05:13:00 Test Item Value Reference Range Comments TOTAL PROTEIN (BEAKER) (test lxkh=911) 7.5 gm/dL 6.0-8.3 ALBUMIN (BEAKER) (test xkdd=0037) 3.6 g/dL 3.5-5.0 BILIRUBIN TOTAL (BEAKER) (test rbab=216) 0.9 mg/dL 0.2-1.2 BILIRUBIN DIRECT (BEAKER) (test pqgn=138) 0.4 mg/dL 0.1-0.5 ALKALINE PHOSPHATASE (BEAKER) (test egod=389) 66 U/L 40-150 AST (SGOT) (BEAKER) (test ffrt=645) 21 U/L 5-34 ALT (SGPT) (BEAKER) (test xnsl=776) 17 U/L 6-55 COMPREHENSIVE METABOLIC [id number] 05:13:00 Test Item Value Reference Range Comments TOTAL PROTEIN (BEAKER) 7.5 gm/dL 6.0-8.3 (test rxjy=528) ALBUMIN (BEAKER) (test 3.6 g/dL 3.5-5.0 teha=1418) ALKALINE PHOSPHATASE 66 U/L 40-150 (BEAKER) (test ilfa=323) BILIRUBIN TOTAL (BEAKER) 0.9 mg/dL 0.2-1.2 (test bflv=935) SODIUM (BEAKER) (test 143 meq/L 136-145 uido=239) POTASSIUM (BEAKER) (test 3.5 meq/L 3.5-5.1 pkvg=110) CHLORIDE (BEAKER) (test 105 meq/L 98-107 ooto=671) CO2 (BEAKER) (test 25 meq/L 22-29 uukl=586) BLOOD UREA NITROGEN 18 mg/dL 7-21 (BEAKER) (test yuvz=433) CREATININE (BEAKER) (test 1.43 mg/dL 0.57-1.25 oiqq=965) GLUCOSE RANDOM (BEAKER) 130 mg/dL 70-105 (test engv=373) CALCIUM (BEAKER) (test 9.6 mg/dL 8.4-10.2 nmfk=372) AST (SGOT) (BEAKER) (test 21 U/L 5-34 wisw=552) ALT (SGPT) (BEAKER) (test 17 U/L 6-55 flap=550) EGFR (BEAKER) (test 44 mL/min/1.73 sq m ESTIMATED GFR IS NOT sijt=6086) ACCURATE CREATININE CLEARANCE IN PREDICTING GLOMERULAR FILTRATION RATE. ESTIMATED GFR IS NOT APPLICABLE FOR DIALYSIS PATIENTS. LACTATE DEHYDROGENASE (LDH)2017-07-28 05:13:00 Test Item Value Reference Range Comments LACTATE DEHYDROGENASE (BEAKER) (test gefa=201) 639 U/L 125-220 CBC W/PLT COUNT & AUTO [id number] 04:57:00 Test Item Value Reference Range Comments WHITE BLOOD CELL COUNT (BEAKER) (test uueb=463) 13.6 K/ L 3.5-10.5 RED BLOOD CELL COUNT (BEAKER) (test iwoh=241) 2.86 M/ L 3.93-5.22 HEMOGLOBIN (BEAKER) (test sqol=408) 8.5 GM/DL 11.2-15.7 HEMATOCRIT (BEAKER) (test hdfd=032) 28.9 % 34.1-44.9 MEAN CORPUSCULAR VOLUME (BEAKER) (test udns=038) 101.0 fL 79.4-94.8 MEAN CORPUSCULAR HEMOGLOBIN (BEAKER) (test 29.7 pg 25.6-32.2 ocql=441) MEAN CORPUSCULAR HEMOGLOBIN CONC (BEAKER) (test 29.4 GM/DL 32.2-35.5 dyqj=028) RED CELL DISTRIBUTION WIDTH (BEAKER) (test 15.2 % 11.7-14.4 itmc=846) PLATELET COUNT (BEAKER) (test gdyz=382) 375 K/CU MM 150-450 MEAN PLATELET VOLUME (BEAKER) (test hbnk=064) 10.7 fL 9.4-12.3 NUCLEATED RED BLOOD CELLS (BEAKER) (test 0 /100 WBC 0-0 urzf=907) NEUTROPHILS RELATIVE PERCENT (BEAKER) (test 82 % fznn=833) LYMPHOCYTES RELATIVE PERCENT (BEAKER) (test 9 % mfoj=162) MONOCYTES RELATIVE PERCENT (BEAKER) (test 6 % tfsv=776) EOSINOPHILS RELATIVE PERCENT (BEAKER) (test 2 % aena=634) BASOPHILS RELATIVE PERCENT (BEAKER) (test 1 % wjjz=788) NEUTROPHILS ABSOLUTE COUNT (BEAKER) (test 11.11 K/ L 1.56-6.13 vogy=903) LYMPHOCYTES ABSOLUTE COUNT (BEAKER) (test 1.17 K/ L 1.18-3.74 aeda=935) MONOCYTES ABSOLUTE COUNT (BEAKER) (test 0.83 K/ L 0.24-0.36 rlsu=569) EOSINOPHILS ABSOLUTE COUNT (BEAKER) (test 0.25 K/ L 0.04-0.36 iuml=019) BASOPHILS ABSOLUTE COUNT (BEAKER) (test 0.07 K/ L 0.01-0.08 yakh=094) IMMATURE GRANULOCYTES-RELATIVE PERCENT (BEAKER) 1 % 0-1 (test bxeb=3180) OCCULT BLOOD, [id number] 01:02:00 Test Item Value Reference Range Comments FECAL OCCULT BLOOD (BEAKER) (test fdgs=600) Negative Negative POCT-GLUCOSE [id number] 00:46:00 Test Item Value Reference Range Comments POC-GLUCOSE METER (BEAKER) 149 mg/dL 70-110 TESTED AT [facility] [address] [facility] (test ccfp=8338) [facility] [address] [facility] [id number] 19:51:00 Test Item Value Reference Range Comments CDT TOXIN (test Negative Negative mqfp=[id number]) CDT GDH ANTIGEN (test Negative Negative No indication of Clostridium mhkv=[id number]) difficile infection and no colonization. Discontinue enteric isolation and therapy. Testing performed by [employer] Rapid Cassette Assay. For GDH, published sensitivity of the assay is 98.7% compared to cytotoxicity testing. For Toxin AB, published sensitivity is 87.8% and specificity 99.4% compared to cytotoxicity testing.Verification of kit performance was done by the [facility] Microbiology Lab prior to clinical use.POCT-GLUCOSE [id number] 18:11:00 Test Item Value Reference Range Comments POC-GLUCOSE METER (BEAKER) 201 mg/dL 70-110 TESTED AT [address] (test hjak=0358) [place] [id number] BLOOD GAS, [id number] 17:03:00 Test Item Value Reference Range Comments PH ARTERIAL (BEAKER) (test nfkp=806) 7.41 7.35-7.45 PCO2 ARTERIAL (BEAKER) (test lxhx=233) 45 mmHg 35-45 PO2 ARTERIAL (BEAKER) (test osjd=616) 94 mmHg 80-90 O2 SATURATION ARTERIAL (BEAKER) (test lqbq=014) 97.3 % 96.0-97.0 HCO3 ARTERIAL (BEAKER) (test hxdd=143) 28 mmol/L 21-29 BASE EXCESS ARTERIAL (BEAKER) (test bsli=228) 2.3 mmol/L -2.0-3.0 PATIENT TEMPERATURE (BEAKER) (test pocb=1207) 36.6 C FIO2 (BEAKER) (test auno=6767) 40.0 % POCT-GLUCOSE [id number] 12:44:00 Test Item Value Reference Range Comments POC-GLUCOSE METER (BEAKER) 117 mg/dL 70-110 TESTED AT [address] (test zpwp=1911) [place] [id number] B-TYPE NATRIURETIC FACTOR (BNP)2017-07-27 11:13:00 Test Item Value Reference Range Comments B-TYPE NATRIURETIC PEPTIDE (BEAKER) (test 1198 pg/mL 0-100 gzws=434) LACTIC ACID, VENOUS, WHOLE [id number] 11:12:00 Test Item Value Reference Range Comments LACTATE BLOOD VENOUS (2) (BEAKER) (test 0.7 mmol/L 0.5-2.2 gjwh=2244) Effective 08/06/2015: Units/Reference Range ChangeNew: 0.5-2.2 mmol/L Previous: 5 -20 mg/dLOXYGEN SATURATION, [id number] 10:28:00 Test Item Value Reference Range Comments O2 SATURATION (MEASURED) (BEAKER) (test csja=0883) 59.6 % RAD, CHEST, 1 VIEW, NON [id number] 08:23:00Reason for exam:->acute respiratory insufficiencyShould this be [...] Verified Date/Time: 07/27/2017 08:23 :08 Reading Location: [facility] Radiology Reading Room POCT-GLUCOSE [id number] 07:53:00 Test Item Value Reference Range Comments POC-GLUCOSE METER (BEAKER) 124 mg/dL 70-110 TESTED AT [facility] [address] [place] [address] (test lvsi=2161) [facility] [address] BASIC METABOLIC [id number] 06:33:00 Test Item Value Reference Range Comments SODIUM (BEAKER) (test 144 meq/L 136-145 razy=594) POTASSIUM (BEAKER) (test 3.8 meq/L 3.5-5.1 shtq=199) CHLORIDE (BEAKER) (test 109 meq/L 98-107 tnxf=329) CO2 (BEAKER) (test 24 meq/L 22-29 yvpl=530) BLOOD UREA NITROGEN 20 mg/dL 7-21 (BEAKER) (test qjob=688) CREATININE (BEAKER) (test 1.40 mg/dL 0.57-1.25 eazk=549) GLUCOSE RANDOM (BEAKER) 111 mg/dL 70-105 (test spxd=476) CALCIUM (BEAKER) (test 8.8 mg/dL 8.4-10.2 injb=137) EGFR (BEAKER) (test 45 mL/min/1.73 sq m ESTIMATED GFR IS NOT olkz=2605) ACCURATE CREATININE CLEARANCE IN PREDICTING GLOMERULAR FILTRATION RATE. ESTIMATED GFR IS NOT APPLICABLE FOR DIALYSIS PATIENTS. [id number] 06:24:00 Test Item Value Reference Range Comments PHOSPHORUS (BEAKER) (test mtnj=678) 3.3 mg/dL 2.3-4.7 BASIC METABOLIC [id number] 06:24:00 Test Item Value Reference Range Comments SODIUM (BEAKER) (test 145 meq/L 136-145 sqbt=618) POTASSIUM (BEAKER) (test 3.8 meq/L 3.5-5.1 sdbi=534) CHLORIDE (BEAKER) (test 110 meq/L 98-107 oehj=256) CO2 (BEAKER) (test 24 meq/L 22-29 udzy=790) BLOOD UREA NITROGEN 21 mg/dL 7-21 (BEAKER) (test ctzh=156) CREATININE (BEAKER) (test 1.39 mg/dL 0.57-1.25 sufu=615) GLUCOSE RANDOM (BEAKER) 112 mg/dL 70-105 (test rdfj=114) CALCIUM (BEAKER) (test 8.9 mg/dL 8.4-10.2 dbpi=327) EGFR (BEAKER) (test 45 mL/min/1.73 sq m ESTIMATED GFR IS NOT onia=7491) ACCURATE CREATININE CLEARANCE IN PREDICTING GLOMERULAR FILTRATION RATE. ESTIMATED GFR IS NOT APPLICABLE FOR DIALYSIS PATIENTS. [id number] 03:27:00 Test Item Value Reference Range Comments PROCALCITONIN (BEAKER) (test qruj=3953) 0.28 ng/mL <0.05 SEPSIS RISK (ng/mL)Low: 0.05-0.50Intermediate: 0.51-2.00High: & gt;=2.01LACTATE DEHYDROGENASE (LDH)2017-07-27 03:07:00 Test Item Value Reference Range Comments LACTATE DEHYDROGENASE (BEAKER) (test ilvu=207) 615 U/L 125-220 HEPATIC FUNCTION [id number] 03:07:00 Test Item Value Reference Range Comments TOTAL PROTEIN (BEAKER) (test hcjw=146) 6.8 gm/dL 6.0-8.3 ALBUMIN (BEAKER) (test rofz=2282) 3.2 g/dL 3.5-5.0 BILIRUBIN TOTAL (BEAKER) (test ihwk=681) 0.9 mg/dL 0.2-1.2 BILIRUBIN DIRECT (BEAKER) (test kbxv=862) 0.5 mg/dL 0.1-0.5 ALKALINE PHOSPHATASE (BEAKER) (test mcyb=458) 58 U/L 40-150 AST (SGOT) (BEAKER) (test axme=098) 21 U/L 5-34 ALT (SGPT) (BEAKER) (test arte=087) 15 U/L 6-55 CALCIUM, [id number] 02:57:00 Test Item Value Reference Range Comments CALCIUM IONIZED (BEAKER) (test urqt=636) 1.14 mmol/L 1.12-1.27 PH, BLOOD (BEAKER) (test kbpd=8235) 7.42 CBC W/PLT COUNT & AUTO [id number] 02:56:00 Test Item Value Reference Range Comments WHITE BLOOD CELL COUNT (BEAKER) (test aqzd=697) 12.4 K/ L 3.5-10.5 RED BLOOD CELL COUNT (BEAKER) (test xddc=894) 2.50 M/ L 3.93-5.22 HEMOGLOBIN (BEAKER) (test azsi=748) 7.4 GM/DL 11.2-15.7 HEMATOCRIT (BEAKER) (test hlta=223) 24.7 % 34.1-44.9 MEAN CORPUSCULAR VOLUME (BEAKER) (test xrxr=610) 98.8 fL 79.4-94.8 MEAN CORPUSCULAR HEMOGLOBIN (BEAKER) (test 29.6 pg 25.6-32.2 rjid=807) MEAN CORPUSCULAR HEMOGLOBIN CONC (BEAKER) (test 30.0 GM/DL 32.2-35.5 ruwb=392) RED CELL DISTRIBUTION WIDTH (BEAKER) (test 15.1 % 11.7-14.4 rbzo=711) PLATELET COUNT (BEAKER) (test cnqu=312) 233 K/CU MM 150-450 MEAN PLATELET VOLUME (BEAKER) (test pbku=173) 10.5 fL 9.4-12.3 NUCLEATED RED BLOOD CELLS (BEAKER) (test 0 /100 WBC 0-0 bqzy=465) NEUTROPHILS RELATIVE PERCENT (BEAKER) (test 80 % duhk=050) LYMPHOCYTES RELATIVE PERCENT (BEAKER) (test 9 % ymuf=828) MONOCYTES RELATIVE PERCENT (BEAKER) (test 7 % wudz=227) EOSINOPHILS RELATIVE PERCENT (BEAKER) (test 2 % xcrz=993) BASOPHILS RELATIVE PERCENT (BEAKER) (test 0 % rahf=738) NEUTROPHILS ABSOLUTE COUNT (BEAKER) (test 9.94 K/ L 1.56-6.13 bccy=186) LYMPHOCYTES ABSOLUTE COUNT (BEAKER) (test 1.15 K/ L 1.18-3.74 mfyn=769) MONOCYTES ABSOLUTE COUNT (BEAKER) (test 0.90 K/ L 0.24-0.36 kdhz=542) EOSINOPHILS ABSOLUTE COUNT (BEAKER) (test 0.24 K/ L 0.04-0.36 ozdf=994) BASOPHILS ABSOLUTE COUNT (BEAKER) (test 0.05 K/ L 0.01-0.08 fqnd=465) IMMATURE GRANULOCYTES-RELATIVE PERCENT (BEAKER) 1 % 0-1 (test hmos=9518) [id number] 01:29:00 Test Item Value Reference Range Comments PHOSPHORUS (BEAKER) (test jjud=234) 3.5 mg/dL 2.3-4.7 BASIC METABOLIC [id number] 01:29:00 Test Item Value Reference Range Comments SODIUM (BEAKER) (test 145 meq/L 136-145 gofy=315) POTASSIUM (BEAKER) (test 3.4 meq/L 3.5-5.1 qbfp=577) CHLORIDE (BEAKER) (test 107 meq/L 98-107 eujc=712) CO2 (BEAKER) (test 26 meq/L 22-29 zcpm=803) BLOOD UREA NITROGEN 21 mg/dL 7-21 (BEAKER) (test mzfs=838) CREATININE (BEAKER) (test 1.47 mg/dL 0.57-1.25 lxav=697) GLUCOSE RANDOM (BEAKER) 138 mg/dL 70-105 (test aobs=936) CALCIUM (BEAKER) (test 9.1 mg/dL 8.4-10.2 vsoy=889) EGFR (BEAKER) (test 43 mL/min/1.73 sq m ESTIMATED GFR IS NOT uvor=5097) ACCURATE CREATININE CLEARANCE IN PREDICTING GLOMERULAR FILTRATION RATE. ESTIMATED GFR IS NOT APPLICABLE FOR DIALYSIS PATIENTS. POCT-GLUCOSE [id number] 22:08:00 Test Item Value Reference Range Comments POC-GLUCOSE METER (BEAKER) 166 mg/dL 70-110 TESTED AT [facility] [address] [facility] (test qbgd=0608) [facility] [address] [id number] 21:22:00 Test Item Value Reference Range Comments MAGNESIUM (BEAKER) (test ruxo=686) 2.2 mg/dL 1.6-2.6 [id number] 19:23:00 Test Item Value Reference Range Comments PHOSPHORUS (BEAKER) (test wbfk=750) 2.9 mg/dL 2.3-4.7 BASIC METABOLIC [id number] 19:23:00 Test Item Value Reference Range Comments SODIUM (BEAKER) (test 145 meq/L 136-145 qpqb=727) POTASSIUM (BEAKER) (test 3.6 meq/L 3.5-5.1 vxhx=240) CHLORIDE (BEAKER) (test 109 meq/L 98-107 xhvb=866) CO2 (BEAKER) (test 24 meq/L 22-29 chpi=351) BLOOD UREA NITROGEN 22 mg/dL 7-21 (BEAKER) (test eioo=213) CREATININE (BEAKER) (test 1.48 mg/dL 0.57-1.25 qvnn=793) GLUCOSE RANDOM (BEAKER) 150 mg/dL 70-105 (test njhz=485) CALCIUM (BEAKER) (test 9.0 mg/dL 8.4-10.2 qwih=797) EGFR (BEAKER) (test 42 mL/min/1.73 sq m ESTIMATED GFR IS NOT erau=5326) ACCURATE CREATININE CLEARANCE IN PREDICTING GLOMERULAR FILTRATION RATE. ESTIMATED GFR IS NOT APPLICABLE FOR DIALYSIS PATIENTS. POCT-GLUCOSE [id number] 18:13:00 Test Item Value Reference Range Comments POC-GLUCOSE METER (BEAKER) 188 mg/dL 70-110 TESTED AT [facility] [address] [facility] (test bdpm=3037) [facility] [address] [id number] 13:12:00 Test Item Value Reference Range Comments PHOSPHORUS (BEAKER) (test ssuw=547) 2.7 mg/dL 2.3-4.7 BASIC METABOLIC [id number] 13:12:00 Test Item Value Reference Range Comments SODIUM (BEAKER) (test 144 meq/L 136-145 iqmx=938) POTASSIUM (BEAKER) (test 3.5 meq/L 3.5-5.1 kskq=292) CHLORIDE (BEAKER) (test 108 meq/L 98-107 ghff=770) CO2 (BEAKER) (test 26 meq/L 22-29 akwf=607) BLOOD UREA NITROGEN 23 mg/dL 7-21 (BEAKER) (test jvvi=936) CREATININE (BEAKER) (test 1.45 mg/dL 0.57-1.25 msuw=828) GLUCOSE RANDOM (BEAKER) 183 mg/dL 70-105 (test dklj=909) CALCIUM (BEAKER) (test 8.5 mg/dL 8.4-10.2 mvwa=499) EGFR (BEAKER) (test 43 mL/min/1.73 sq m ESTIMATED GFR IS NOT qdbs=9172) ACCURATE CREATININE CLEARANCE IN PREDICTING GLOMERULAR FILTRATION RATE. ESTIMATED GFR IS NOT APPLICABLE FOR DIALYSIS PATIENTS. POCT-GLUCOSE [id number] 12:07:00 Test Item Value Reference Range Comments POC-GLUCOSE METER (BEAKER) 203 mg/dL 70-110 TESTED AT [facility] [address] [facility] (test rmwy=9778) [facility] [address] [id number] 09:50:00 Test Item Value Reference Range Comments MAGNESIUM (BEAKER) (test cino=206) 2.6 mg/dL 1.6-2.6 RAD, CHEST, 1 VIEW, NON [id number] 08:06:00Reason for exam:->acute respiratory insufficiencyShould this be [...] MDReport Verified Date/Time: 07/26/2017 08:06:19 [facility] POCT-GLUCOSE [id number] 07:58:00 Test Item Value Reference Range Comments POC-GLUCOSE METER (BEAKER) 176 mg/dL 70-110 TESTED AT [facility] [address] [facility] (test ehxp=5712) [facility] [address] OXYGEN SATURATION, [id number] 05:23:00 Test Item Value Reference Range Comments O2 SATURATION (MEASURED) (BEAKER) (test bimv=9598) 64.5 % calibrationBLOOD GAS, [id number] 04:43:00 Test Item Value Reference Range Comments PH ARTERIAL (BEAKER) (test ubol=977) 7.44 7.35-7.45 PCO2 ARTERIAL (BEAKER) (test aoan=427) 44 mmHg 35-45 PO2 ARTERIAL (BEAKER) (test cvnf=156) 127 mmHg 80-90 O2 SATURATION ARTERIAL (BEAKER) (test givl=028) 98.6 % 96.0-97.0 HCO3 ARTERIAL (BEAKER) (test bacj=371) 29 mmol/L 21-29 BASE EXCESS ARTERIAL (BEAKER) (test jmbw=303) 4.6 mmol/L -2.0-3.0 PATIENT TEMPERATURE (BEAKER) (test lwmx=6517) 37.3 C FIO2 (BEAKER) (test mnjs=5376) 100.0 % [id number] 04:31:00 Test Item Value Reference Range Comments PHOSPHORUS (BEAKER) (test dmyj=341) 3.4 mg/dL 2.3-4.7 [id number] 04:31:00 Test Item Value Reference Range Comments MAGNESIUM (BEAKER) (test ktmk=175) 2.2 mg/dL 1.6-2.6 BASIC METABOLIC [id number] 04:31:00 Test Item Value Reference Range Comments SODIUM (BEAKER) (test 146 meq/L 136-145 juqi=254) POTASSIUM (BEAKER) (test 3.7 meq/L 3.5-5.1 ipfe=685) CHLORIDE (BEAKER) (test 108 meq/L 98-107 lrxr=099) CO2 (BEAKER) (test 28 meq/L 22-29 bmwk=520) BLOOD UREA NITROGEN 23 mg/dL 7-21 (BEAKER) (test cqaa=773) CREATININE (BEAKER) (test 1.51 mg/dL 0.57-1.25 gion=958) GLUCOSE RANDOM (BEAKER) 151 mg/dL 70-105 (test gsfv=162) CALCIUM (BEAKER) (test 9.4 mg/dL 8.4-10.2 sxpi=325) EGFR (BEAKER) (test 41 mL/min/1.73 sq m ESTIMATED GFR IS NOT mpfh=5235) ACCURATE CREATININE CLEARANCE IN PREDICTING GLOMERULAR FILTRATION RATE. ESTIMATED GFR IS NOT APPLICABLE FOR DIALYSIS PATIENTS. HEPATIC FUNCTION [id number] 04:31:00 Test Item Value Reference Range Comments TOTAL PROTEIN (BEAKER) (test raaf=308) 6.6 gm/dL 6.0-8.3 ALBUMIN (BEAKER) (test gmda=8912) 3.2 g/dL 3.5-5.0 BILIRUBIN TOTAL (BEAKER) (test wchy=123) 1.0 mg/dL 0.2-1.2 BILIRUBIN DIRECT (BEAKER) (test cvuj=111) 0.5 mg/dL 0.1-0.5 ALKALINE PHOSPHATASE (BEAKER) (test yuzc=445) 60 U/L 40-150 AST (SGOT) (BEAKER) (test usoj=522) 25 U/L 5-34 ALT (SGPT) (BEAKER) (test cyvi=272) 18 U/L 6-55 COMPREHENSIVE METABOLIC [id number] 04:31:00 Test Item Value Reference Range Comments TOTAL PROTEIN (BEAKER) 6.6 gm/dL 6.0-8.3 (test lngn=355) ALBUMIN (BEAKER) (test 3.2 g/dL 3.5-5.0 xeta=1157) ALKALINE PHOSPHATASE 60 U/L 40-150 (BEAKER) (test wdjs=642) BILIRUBIN TOTAL (BEAKER) 1.0 mg/dL 0.2-1.2 (test zprp=191) SODIUM (BEAKER) (test 146 meq/L 136-145 xdoj=305) POTASSIUM (BEAKER) (test 3.7 meq/L 3.5-5.1 vpej=361) CHLORIDE (BEAKER) (test 108 meq/L 98-107 laag=036) CO2 (BEAKER) (test 28 meq/L 22-29 frgq=272) BLOOD UREA NITROGEN 23 mg/dL 7-21 (BEAKER) (test wvys=114) CREATININE (BEAKER) (test 1.51 mg/dL 0.57-1.25 kypn=449) GLUCOSE RANDOM (BEAKER) 151 mg/dL 70-105 (test llhi=508) CALCIUM (BEAKER) (test 9.4 mg/dL 8.4-10.2 xznr=523) AST (SGOT) (BEAKER) (test 25 U/L 5-34 kugj=450) ALT (SGPT) (BEAKER) (test 18 U/L 6-55 zsbf=525) EGFR (BEAKER) (test 41 mL/min/1.73 sq m ESTIMATED GFR IS NOT rgef=1026) ACCURATE CREATININE CLEARANCE IN PREDICTING GLOMERULAR FILTRATION RATE. ESTIMATED GFR IS NOT APPLICABLE FOR DIALYSIS PATIENTS. LACTATE DEHYDROGENASE (LDH)2017-07-26 04:31:00 Test Item Value Reference Range Comments LACTATE DEHYDROGENASE (BEAKER) (test jqpx=944) 661 U/L 125-220 CALCIUM, [id number] 04:23:00 Test Item Value Reference Range Comments CALCIUM IONIZED (BEAKER) (test myzo=820) 1.15 mmol/L 1.12-1.27 PH, BLOOD (BEAKER) (test ljvd=6337) 7.47 CBC W/PLT COUNT & AUTO [id number] 04:20:00 Test Item Value Reference Range Comments WHITE BLOOD CELL COUNT (BEAKER) (test fxgc=538) 13.0 K/ L 3.5-10.5 RED BLOOD CELL COUNT (BEAKER) (test fpbr=729) 2.56 M/ L 3.93-5.22 HEMOGLOBIN (BEAKER) (test eata=924) 7.6 GM/DL 11.2-15.7 HEMATOCRIT (BEAKER) (test onqg=196) 25.4 % 34.1-44.9 MEAN CORPUSCULAR VOLUME (BEAKER) (test zdba=403) 99.2 fL 79.4-94.8 MEAN CORPUSCULAR HEMOGLOBIN (BEAKER) (test 29.7 pg 25.6-32.2 okaz=101) MEAN CORPUSCULAR HEMOGLOBIN CONC (BEAKER) (test 29.9 GM/DL 32.2-35.5 dqmm=126) RED CELL DISTRIBUTION WIDTH (BEAKER) (test 15.0 % 11.7-14.4 kvoo=499) PLATELET COUNT (BEAKER) (test adnz=217) 161 K/CU MM 150-450 MEAN PLATELET VOLUME (BEAKER) (test eiat=885) 11.0 fL 9.4-12.3 NUCLEATED RED BLOOD CELLS (BEAKER) (test 0 /100 WBC 0-0 esna=597) NEUTROPHILS RELATIVE PERCENT (BEAKER) (test 79 % mabc=815) LYMPHOCYTES RELATIVE PERCENT (BEAKER) (test 10 % pqjg=046) MONOCYTES RELATIVE PERCENT (BEAKER) (test 7 % amiq=600) EOSINOPHILS RELATIVE PERCENT (BEAKER) (test 2 % eqjj=705) BASOPHILS RELATIVE PERCENT (BEAKER) (test 1 % plgp=982) NEUTROPHILS ABSOLUTE COUNT (BEAKER) (test 10.33 K/ L 1.56-6.13 yxvy=875) LYMPHOCYTES ABSOLUTE COUNT (BEAKER) (test 1.35 K/ L 1.18-3.74 uues=907) MONOCYTES ABSOLUTE COUNT (BEAKER) (test 0.96 K/ L 0.24-0.36 hpdm=457) EOSINOPHILS ABSOLUTE COUNT (BEAKER) (test 0.19 K/ L 0.04-0.36 fvlo=789) BASOPHILS ABSOLUTE COUNT (BEAKER) (test 0.07 K/ L 0.01-0.08 ipxe=969) IMMATURE GRANULOCYTES-RELATIVE PERCENT (BEAKER) 1 % 0-1 (test wyhw=8937) [id number] 21:19:00 Test Item Value Reference Range Comments PHOSPHORUS (BEAKER) (test ibwp=523) 4.4 mg/dL 2.3-4.7 [id number] 21:19:00 Test Item Value Reference Range Comments MAGNESIUM (BEAKER) (test jgqs=964) 2.1 mg/dL 1.6-2.6 BASIC METABOLIC [id number] 21:19:00 Test Item Value Reference Range Comments SODIUM (BEAKER) (test 146 meq/L 136-145 xclk=144) POTASSIUM (BEAKER) (test 3.9 meq/L 3.5-5.1 zrom=597) CHLORIDE (BEAKER) (test 108 meq/L 98-107 avxj=905) CO2 (BEAKER) (test 27 meq/L 22-29 oqcg=718) BLOOD UREA NITROGEN 24 mg/dL 7-21 (BEAKER) (test idlr=705) CREATININE (BEAKER) (test 1.64 mg/dL 0.57-1.25 mvqz=981) GLUCOSE RANDOM (BEAKER) 120 mg/dL 70-105 (test itqd=391) CALCIUM (BEAKER) (test 9.5 mg/dL 8.4-10.2 hgvr=497) EGFR (BEAKER) (test 38 mL/min/1.73 sq m ESTIMATED GFR IS NOT zmyj=2596) ACCURATE CREATININE CLEARANCE IN PREDICTING GLOMERULAR FILTRATION RATE. ESTIMATED GFR IS NOT APPLICABLE FOR DIALYSIS PATIENTS. POCT-GLUCOSE [id number] 18:36:00 Test Item Value Reference Range Comments POC-GLUCOSE METER (BEAKER) 129 mg/dL 70-110 TESTED AT [address] (test eata=0225) [place] [address] POCT-GLUCOSE [id number] 16:19:00 Test Item Value Reference Range Comments POC-GLUCOSE METER (BEAKER) 132 mg/dL 70-110 TESTED AT [address] (test owbd=9873) [place] [address] [id number] 13:57:00 Test Item Value Reference Range Comments PHOSPHORUS (BEAKER) (test aiyj=311) 4.2 mg/dL 2.3-4.7 BASIC METABOLIC [id number] 13:57:00 Test Item Value Reference Range Comments SODIUM (BEAKER) (test 147 meq/L 136-145 yvac=598) POTASSIUM (BEAKER) (test 3.7 meq/L 3.5-5.1 esxf=857) CHLORIDE (BEAKER) (test 110 meq/L 98-107 gzxa=940) CO2 (BEAKER) (test 25 meq/L 22-29 etzh=235) BLOOD UREA NITROGEN 23 mg/dL 7-21 (BEAKER) (test lrqz=191) CREATININE (BEAKER) (test 1.58 mg/dL 0.57-1.25 rpzn=711) GLUCOSE RANDOM (BEAKER) 129 mg/dL 70-105 (test nvrf=297) CALCIUM (BEAKER) (test 9.2 mg/dL 8.4-10.2 hfpb=476) EGFR (BEAKER) (test 39 mL/min/1.73 sq m ESTIMATED GFR IS NOT ijtd=9143) ACCURATE CREATININE CLEARANCE IN PREDICTING GLOMERULAR FILTRATION RATE. ESTIMATED GFR IS NOT APPLICABLE FOR DIALYSIS PATIENTS. BLOOD GAS, [id number] 13:48:00 Test Item Value Reference Range Comments PH ARTERIAL (BEAKER) (test gsne=096) 7.42 7.35-7.45 PCO2 ARTERIAL (BEAKER) (test kkoh=551) 47 mmHg 35-45 PO2 ARTERIAL (BEAKER) (test aqzx=717) 202 mmHg 80-90 O2 SATURATION ARTERIAL (BEAKER) (test sdwu=827) 99.4 % 96.0-97.0 HCO3 ARTERIAL (BEAKER) (test yjji=419) 29 mmol/L 21-29 BASE EXCESS ARTERIAL (BEAKER) (test lzoo=849) 4.4 mmol/L -2.0-3.0 PATIENT TEMPERATURE (BEAKER) (test znts=5151) 37.6 C FIO2 (BEAKER) (test ayhy=0977) 100.0 % POCT-GLUCOSE [id number] 13:31:00 Test Item Value Reference Range Comments POC-GLUCOSE METER (BEAKER) 128 mg/dL 70-110 TESTED AT [address] (test ikgh=6744) [place] [id number] POCT-GLUCOSE [id number] 11:02:00 Test Item Value Reference Range Comments POC-GLUCOSE METER (BEAKER) 137 mg/dL 70-110 TESTED AT [address] (test kvbj=3615) [place] [id number] POCT-GLUCOSE [id number] 11:02:00 Test Item Value Reference Range Comments POC-GLUCOSE METER (BEAKER) 141 mg/dL 70-110 TESTED AT [address] (test jqrk=5853) [place] [id number] POCT-GLUCOSE [id number] 11:02:00 Test Item Value Reference Range Comments POC-GLUCOSE METER (BEAKER) 104 mg/dL 70-110 TESTED AT [address] (test cxpr=7085) [place] [id number] BLOOD [id number] 11:00:00 Test Item Value Reference Range Comments CULTURE (BEAKER) (test lvac=3850) No growth in 5 days BLOOD [id number] 11:00:00 Test Item Value Reference Range Comments CULTURE (BEAKER) (test srht=5170) No growth in 5 days CBC W/PLT COUNT & AUTO [id number] 08:54:00 Test Item Value Reference Range Comments WHITE BLOOD CELL COUNT (BEAKER) (test cfqi=088) 13.8 K/ L 3.5-10.5 RED BLOOD CELL COUNT (BEAKER) (test datn=489) 2.54 M/ L 3.93-5.22 HEMOGLOBIN (BEAKER) (test ftxk=074) 7.7 GM/DL 11.2-15.7 HEMATOCRIT (BEAKER) (test osqq=047) 25.2 % 34.1-44.9 MEAN CORPUSCULAR VOLUME (BEAKER) (test rokt=462) 99.2 fL 79.4-94.8 MEAN CORPUSCULAR HEMOGLOBIN (BEAKER) (test 30.3 pg 25.6-32.2 cklm=487) MEAN CORPUSCULAR HEMOGLOBIN CONC (BEAKER) (test 30.6 GM/DL 32.2-35.5 acmd=392) RED CELL DISTRIBUTION WIDTH (BEAKER) (test 15.2 % 11.7-14.4 ugdp=210) PLATELET COUNT (BEAKER) (test mqsj=160) 127 K/CU MM 150-450 MEAN PLATELET VOLUME (BEAKER) (test uriu=770) 10.6 fL 9.4-12.3 NUCLEATED RED BLOOD CELLS (BEAKER) (test 0 /100 WBC 0-0 botk=337) NEUTROPHILS RELATIVE PERCENT (BEAKER) (test 81 % jnqb=128) LYMPHOCYTES RELATIVE PERCENT (BEAKER) (test 8 % vyhb=990) MONOCYTES RELATIVE PERCENT (BEAKER) (test 9 % egkr=450) EOSINOPHILS RELATIVE PERCENT (BEAKER) (test 1 % jesw=801) BASOPHILS RELATIVE PERCENT (BEAKER) (test 0 % kibs=728) NEUTROPHILS ABSOLUTE COUNT (BEAKER) (test 11.11 K/ L 1.56-6.13 jqln=429) LYMPHOCYTES ABSOLUTE COUNT (BEAKER) (test 1.14 K/ L 1.18-3.74 gkzt=648) MONOCYTES ABSOLUTE COUNT (BEAKER) (test 1.20 K/ L 0.24-0.36 tncp=194) EOSINOPHILS ABSOLUTE COUNT (BEAKER) (test 0.15 K/ L 0.04-0.36 skvy=901) BASOPHILS ABSOLUTE COUNT (BEAKER) (test 0.04 K/ L 0.01-0.08 ogsd=039) IMMATURE GRANULOCYTES-RELATIVE PERCENT (BEAKER) 1 % 0-1 (test qyor=3506) BLOOD GAS, [id number] 08:40:00 Test Item Value Reference Range Comments PH ARTERIAL (BEAKER) (test spwn=786) 7.43 7.35-7.45 PCO2 ARTERIAL (BEAKER) (test sbel=940) 35 mmHg 35-45 PO2 ARTERIAL (BEAKER) (test ufnz=420) 82 mmHg 80-90 O2 SATURATION ARTERIAL (BEAKER) (test mtrt=889) 95.7 % 96.0-97.0 HCO3 ARTERIAL (BEAKER) (test glmy=513) 22 mmol/L 21-29 BASE EXCESS ARTERIAL (BEAKER) (test dpmw=416) -1.3 mmol/L -2.0-3.0 PATIENT TEMPERATURE (BEAKER) (test ljyc=9986) 38.3 C FIO2 (BEAKER) (test hcxa=5536) 40.0 % [id number] 06:59:00 Test Item Value Reference Range Comments PHOSPHORUS (BEAKER) (test qglk=717) 3.4 mg/dL 2.3-4.7 [id number] 06:59:00 Test Item Value Reference Range Comments MAGNESIUM (BEAKER) (test asiu=925) 2.0 mg/dL 1.6-2.6 BASIC METABOLIC [id number] 06:59:00 Test Item Value Reference Range Comments SODIUM (BEAKER) (test 147 meq/L 136-145 ghmd=069) POTASSIUM (BEAKER) (test 3.7 meq/L 3.5-5.1 xpyj=585) CHLORIDE (BEAKER) (test 111 meq/L 98-107 rbaj=991) CO2 (BEAKER) (test 23 meq/L 22-29 mtlk=681) BLOOD UREA NITROGEN 24 mg/dL 7-21 (BEAKER) (test pnme=545) CREATININE (BEAKER) (test 1.57 mg/dL 0.57-1.25 gkwo=293) GLUCOSE RANDOM (BEAKER) 121 mg/dL 70-105 (test emfh=055) CALCIUM (BEAKER) (test 9.0 mg/dL 8.4-10.2 xfld=890) EGFR (BEAKER) (test 39 mL/min/1.73 sq m ESTIMATED GFR IS NOT imyv=8045) ACCURATE CREATININE CLEARANCE IN PREDICTING GLOMERULAR FILTRATION RATE. ESTIMATED GFR IS NOT APPLICABLE FOR DIALYSIS PATIENTS. POCT-GLUCOSE [id number] 06:27:00 Test Item Value Reference Range Comments POC-GLUCOSE METER (BEAKER) 95 mg/dL 70-110 TESTED AT [facility] [address] [facility] (test ptaz=3109) [facility] [address] POCT-GLUCOSE [id number] 06:04:00 Test Item Value Reference Range Comments POC-GLUCOSE METER (BEAKER) 128 mg/dL 70-110 TESTED AT [address] (test poob=7258) [facility] [address] [id number] 05:36:00 Test Item Value Reference Range Comments PHOSPHORUS (BEAKER) (test wtaj=503) 3.4 mg/dL 2.3-4.7 BASIC METABOLIC [id number] 05:36:00 Test Item Value Reference Range Comments SODIUM (BEAKER) (test 146 meq/L 136-145 rosj=046) POTASSIUM (BEAKER) (test 3.6 meq/L 3.5-5.1 ibhr=290) CHLORIDE (BEAKER) (test 110 meq/L 98-107 zeug=392) CO2 (BEAKER) (test 25 meq/L 22-29 jfel=355) BLOOD UREA NITROGEN 25 mg/dL 7-21 (BEAKER) (test hjpu=998) CREATININE (BEAKER) (test 1.58 mg/dL 0.57-1.25 syum=983) GLUCOSE RANDOM (BEAKER) 114 mg/dL 70-105 (test btfg=921) CALCIUM (BEAKER) (test 8.9 mg/dL 8.4-10.2 fpbr=369) EGFR (BEAKER) (test 39 mL/min/1.73 sq m ESTIMATED GFR IS NOT bkdw=9476) ACCURATE CREATININE CLEARANCE IN PREDICTING GLOMERULAR FILTRATION RATE. ESTIMATED GFR IS NOT APPLICABLE FOR DIALYSIS PATIENTS. HEPATIC FUNCTION [id number] 05:36:00 Test Item Value Reference Range Comments TOTAL PROTEIN (BEAKER) (test prbz=571) 6.3 gm/dL 6.0-8.3 ALBUMIN (BEAKER) (test ylqd=1058) 3.1 g/dL 3.5-5.0 BILIRUBIN TOTAL (BEAKER) (test yrip=922) 1.1 mg/dL 0.2-1.2 BILIRUBIN DIRECT (BEAKER) (test sqgs=657) 0.7 mg/dL 0.1-0.5 ALKALINE PHOSPHATASE (BEAKER) (test qfrt=193) 54 U/L 40-150 AST (SGOT) (BEAKER) (test apza=701) 23 U/L 5-34 ALT (SGPT) (BEAKER) (test ohis=925) 17 U/L 6-55 LACTATE DEHYDROGENASE (LDH)2017-07-25 05:36:00 Test Item Value Reference Range Comments LACTATE DEHYDROGENASE (BEAKER) (test fhrz=877) 695 U/L 125-220 POCT-GLUCOSE [id number] 05:24:00 Test Item Value Reference Range Comments POC-GLUCOSE METER (BEAKER) 102 mg/dL 70-110 TESTED AT [address] (test vtjp=9789) [facility] [address] RAD, CHEST, 1 VIEW, NON [id number] 04:43:00Reason for exam:-> impellaShould this be performed at the bedside?->YesFINAL REPORT Chest one view. Clinical history: impella Comparison: Chest radiograph 07/24/17 Technique: A single frontal view of the chest was obtained. Findings: Cardiomediastinal contours are unchanged. Endotracheal and feeding tubes as well as a right IJ [place] catheter are unchanged in position. There are patchy bibasilar opacities which may represent atelectasis and/or pneumonia. There is mild elevation of the left hemidiaphragm. There is no definite pleural effusionor pneumothorax. Signed: [facility] Verified Date/Time: 07/25/2017 04:43:27 ReadingLocation: [facility] B1 C013T Transitional Reading Room [id number] 00:51:00 Test Item Value Reference Range Comments PHOSPHORUS (BEAKER) (test wkvf=320) 3.4 mg/dL 2.3-4.7 BASIC METABOLIC [id number] 00:51:00 Test Item Value Reference Range Comments SODIUM (BEAKER) (test 146 meq/L 136-145 ocbr=028) POTASSIUM (BEAKER) (test 4.0 meq/L 3.5-5.1 cgcj=548) CHLORIDE (BEAKER) (test 110 meq/L 98-107 pqgy=184) CO2 (BEAKER) (test 26 meq/L 22-29 osan=963) BLOOD UREA NITROGEN 26 mg/dL 7-21 (BEAKER) (test zkmx=542) CREATININE (BEAKER) (test 1.53 mg/dL 0.57-1.25 ejvh=513) GLUCOSE RANDOM (BEAKER) 105 mg/dL 70-105 (test otcv=481) CALCIUM (BEAKER) (test 8.8 mg/dL 8.4-10.2 qjvy=384) EGFR (BEAKER) (test 41 mL/min/1.73 sq m ESTIMATED GFR IS NOT rlap=8147) ACCURATE CREATININE CLEARANCE IN PREDICTING GLOMERULAR FILTRATION RATE. ESTIMATED GFR IS NOT APPLICABLE FOR DIALYSIS PATIENTS. POCT-GLUCOSE [id number] 00:32:00 Test Item Value Reference Range Comments POC-GLUCOSE METER (BEAKER) 119 mg/dL 70-110 TESTED AT [address] (test zfij=0268) [place] [id number] POCT-GLUCOSE [id number] 00:27:00 Test Item Value Reference Range Comments POC-GLUCOSE METER (BEAKER) 114 mg/dL 70-110 TESTED AT [address] (test titc=6504) [place] [id number] POCT-GLUCOSE [id number] 23:58:00 Test Item Value Reference Range Comments POC-GLUCOSE METER (BEAKER) 117 mg/dL 70-110 TESTED AT [address] (test czja=6209) [place] [address] [id number] 21:24:00 Test Item Value Reference Range Comments MAGNESIUM (BEAKER) (test xrdq=922) 2.0 mg/dL 1.6-2.6 POCT-GLUCOSE [id number] 20:24:00 Test Item Value Reference Range Comments POC-GLUCOSE METER (BEAKER) 130 mg/dL 70-110 TESTED AT [facility] [address] (test cufo=2608) [facility] [address] [id number] 19:20:00 Test Item Value Reference Range Comments POTASSIUM (BEAKER) (test xduz=398) 3.6 meq/L 3.5-5.1 [id number] 19:20:00 Test Item Value Reference Range Comments GLUCOSE RANDOM (BEAKER) (test wats=129) 168 mg/dL 70-105 [id number] 18:01:00 Test Item Value Reference Range Comments PHOSPHORUS (BEAKER) (test tztz=902) 3.7 mg/dL 2.3-4.7 BASIC METABOLIC [id number] 18:01:00 Test Item Value Reference Range Comments SODIUM (BEAKER) (test 145 meq/L 136-145 qjry=048) POTASSIUM (BEAKER) (test 3.9 meq/L 3.5-5.1 ggia=007) CHLORIDE (BEAKER) (test 109 meq/L 98-107 duut=170) CO2 (BEAKER) (test 27 meq/L 22-29 liyb=460) BLOOD UREA NITROGEN 26 mg/dL 7-21 (BEAKER) (test nkre=627) CREATININE (BEAKER) (test 1.47 mg/dL 0.57-1.25 qobf=332) GLUCOSE RANDOM (BEAKER) 210 mg/dL 70-105 (test zdpl=476) CALCIUM (BEAKER) (test 8.5 mg/dL 8.4-10.2 npus=637) EGFR (BEAKER) (test 43 mL/min/1.73 sq m ESTIMATED GFR IS NOT wnqu=6607) ACCURATE CREATININE CLEARANCE IN PREDICTING GLOMERULAR FILTRATION RATE. ESTIMATED GFR IS NOT APPLICABLE FOR DIALYSIS PATIENTS. GLUCOSE-STAT [id number] 17:14:00 Test Item Value Reference Range Comments GLUCOSE RANDOM (BEAKER) (test qgve=119) 208 mg/dL 70-110 BLOOD GAS, [id number] 17:13:00 Test Item Value Reference Range Comments PH ARTERIAL (BEAKER) (test hmgu=695) 7.44 7.35-7.45 PCO2 ARTERIAL (BEAKER) (test svwh=965) 43 mmHg 35-45 PO2 ARTERIAL (BEAKER) (test bafg=156) 58 mmHg 80-90 O2 SATURATION ARTERIAL (BEAKER) (test jryg=288) 90.8 % 96.0-97.0 HCO3 ARTERIAL (BEAKER) (test tcoa=652) 28 mmol/L 21-29 BASE EXCESS ARTERIAL (BEAKER) (test coco=624) 3.9 mmol/L -2.0-3.0 PATIENT TEMPERATURE (BEAKER) (test ohsy=0677) 37.0 C FIO2 (BEAKER) (test jvbu=7755) 100.0 % RAD, CHEST, 1 VIEW, NON [id number] 14:00:00Reason for exam:->post intubationShould this be performed at the bedside?->YesFINAL REPORT AP chest. HISTORY: Endotracheal tube COMPARISON: 07/24/2017 IMPRESSION:Endotracheal tube projects deep in the trachea, approximately 1-2 cm above the level of the toro. Cardiomegaly similar to previous. Worsening aeration at the left lung base. Mild pulmonary vascular congestion. No pneumothorax. Signed: Mitchel Jarquin MDReport Verified Date/Time: 07/24/2017 14:00:17 Reading Location: [facility] B1 C013Y CT Body Reading Room [id number] 13:40:00 Test Item Value Reference Range Comments PHOSPHORUS (BEAKER) (test xbyc=167) 4.3 mg/dL 2.3-4.7 [id number] 13:40:00 Test Item Value Reference Range Comments MAGNESIUM (BEAKER) (test hfbz=694) 2.0 mg/dL 1.6-2.6 BASIC METABOLIC [id number] 13:40:00 Test Item Value Reference Range Comments SODIUM (BEAKER) (test 145 meq/L 136-145 nyzd=672) POTASSIUM (BEAKER) (test 3.9 meq/L 3.5-5.1 dfen=373) CHLORIDE (BEAKER) (test 108 meq/L 98-107 jxgn=653) CO2 (BEAKER) (test 24 meq/L 22-29 smqz=587) BLOOD UREA NITROGEN 28 mg/dL 7-21 (BEAKER) (test tzuh=077) CREATININE (BEAKER) (test 1.43 mg/dL 0.57-1.25 sbib=935) GLUCOSE RANDOM (BEAKER) 206 mg/dL 70-105 (test fvap=251) CALCIUM (BEAKER) (test 8.5 mg/dL 8.4-10.2 ugpv=114) EGFR (BEAKER) (test 44 mL/min/1.73 sq m ESTIMATED GFR IS NOT thlr=7682) ACCURATE CREATININE CLEARANCE IN PREDICTING GLOMERULAR FILTRATION RATE. ESTIMATED GFR IS NOT APPLICABLE FOR DIALYSIS PATIENTS. LACTIC ACID, ARTERIAL, WHOLE [id number] 13:36:00 Test Item Value Reference Range Comments LACTATE BLOOD ARTERIAL (2) (BEAKER) (test 0.7 mmol/L 0.5-2.2 fpur=6262) Effective 08/06/2015: Units/Reference Range ChangeNew: 0.5-2.2 mmol/L Previous: 5 -20 mg/dLCBC W/PLT COUNT & AUTO [id number] 13:24:00 Test Item Value Reference Range Comments WHITE BLOOD CELL COUNT (BEAKER) (test tenk=880) 10.5 K/ L 3.5-10.5 RED BLOOD CELL COUNT (BEAKER) (test ebwf=590) 2.70 M/ L 3.93-5.22 HEMOGLOBIN (BEAKER) (test onhu=605) 8.1 GM/DL 11.2-15.7 HEMATOCRIT (BEAKER) (test chsy=204) 27.0 % 34.1-44.9 MEAN CORPUSCULAR VOLUME (BEAKER) (test ejgg=728) 100.0 fL 79.4-94.8 MEAN CORPUSCULAR HEMOGLOBIN (BEAKER) (test 30.0 pg 25.6-32.2 zxag=127) MEAN CORPUSCULAR HEMOGLOBIN CONC (BEAKER) (test 30.0 GM/DL 32.2-35.5 nzja=569) RED CELL DISTRIBUTION WIDTH (BEAKER) (test 14.9 % 11.7-14.4 ybki=755) PLATELET COUNT (BEAKER) (test qoef=767) 117 K/CU MM 150-450 MEAN PLATELET VOLUME (BEAKER) (test eyfe=008) 10.9 fL 9.4-12.3 NUCLEATED RED BLOOD CELLS (BEAKER) (test 0 /100 WBC 0-0 kjkp=609) NEUTROPHILS RELATIVE PERCENT (BEAKER) (test 78 % gniy=996) LYMPHOCYTES RELATIVE PERCENT (BEAKER) (test 10 % itbw=545) MONOCYTES RELATIVE PERCENT (BEAKER) (test 10 % rkqn=492) EOSINOPHILS RELATIVE PERCENT (BEAKER) (test 1 % ynky=362) BASOPHILS RELATIVE PERCENT (BEAKER) (test 0 % iuyr=716) NEUTROPHILS ABSOLUTE COUNT (BEAKER) (test 8.20 K/ L 1.56-6.13 coij=136) LYMPHOCYTES ABSOLUTE COUNT (BEAKER) (test 1.00 K/ L 1.18-3.74 kzdl=868) MONOCYTES ABSOLUTE COUNT (BEAKER) (test 1.06 K/ L 0.24-0.36 clau=912) EOSINOPHILS ABSOLUTE COUNT (BEAKER) (test 0.09 K/ L 0.04-0.36 exwh=118) BASOPHILS ABSOLUTE COUNT (BEAKER) (test 0.04 K/ L 0.01-0.08 wyto=518) IMMATURE GRANULOCYTES-RELATIVE PERCENT (BEAKER) 1 % 0-1 (test rfeb=6226) OXYGEN SATURATION, [id number] 13:08:00 Test Item Value Reference Range Comments O2 SATURATION (MEASURED) (BEAKER) (test vqlx=2355) 65.1 % PA catheter tipBLOOD GAS, [id number] 13:08:00 Test Item Value Reference Range Comments PH ARTERIAL (BEAKER) (test exty=610) 7.42 7.35-7.45 PCO2 ARTERIAL (BEAKER) (test wswv=165) 42 mmHg 35-45 PO2 ARTERIAL (BEAKER) (test fluu=499) 239 mmHg 80-90 O2 SATURATION ARTERIAL (BEAKER) (test erpx=838) 99.6 % 96.0-97.0 HCO3 ARTERIAL (BEAKER) (test hvdj=807) 27 mmol/L 21-29 BASE EXCESS ARTERIAL (BEAKER) (test derc=331) 2.1 mmol/L -2.0-3.0 PATIENT TEMPERATURE (BEAKER) (test hozh=2700) 36.6 C FIO2 (BEAKER) (test qghm=1849) 100.0 % GLUCOSE-STAT [id number] 13:08:00 Test Item Value Reference Range Comments GLUCOSE RANDOM (BEAKER) (test dhmk=515) 194 mg/dL 70-110 HGB/HCT (H&H) - STAT [id number] 13:08:00 Test Item Value Reference Range Comments HEMOGLOBIN (BEAKER) (test bawd=463) 8.8 g/dL 12.0-15.0 HEMATOCRIT (BEAKER) (test kcwj=449) 26.0 % 36.0-45.0 CALCIUM, [id number] 13:08:00 Test Item Value Reference Range Comments CALCIUM IONIZED (BEAKER) (test hivr=309) 1.08 mmol/L 1.12-1.27 PH, BLOOD (BEAKER) (test hoid=8198) 7.41 SODIUM NA-STAT [id number] 13:07:00 Test Item Value Reference Range Comments SODIUM (BEAKER) (test fhrj=019) 140 meq/L 135-148 POTASSIUM-STAT [id number] 13:07:00 Test Item Value Reference Range Comments POTASSIUM (BEAKER) (test nrzm=558) 3.7 meq/L 3.6-5.5 SODIUM NA-STAT [id number] 11:39:00 Test Item Value Reference Range Comments SODIUM (BEAKER) (test prjv=361) 141 meq/L 135-148 POTASSIUM-STAT [id number] 11:39:00 Test Item Value Reference Range Comments POTASSIUM (BEAKER) (test kyrr=415) 3.6 meq/L 3.6-5.5 BLOOD GAS, [id number] 11:39:00 Test Item Value Reference Range Comments PH ARTERIAL (BEAKER) (test qcup=642) 7.44 7.35-7.45 PCO2 ARTERIAL (BEAKER) (test badh=152) 42 mmHg 35-45 PO2 ARTERIAL (BEAKER) (test jrgl=829) 234 mmHg 80-90 O2 SATURATION ARTERIAL (BEAKER) (test yzzg=533) 99.6 % 96.0-97.0 HCO3 ARTERIAL (BEAKER) (test kqlg=130) 28 mmol/L 21-29 BASE EXCESS ARTERIAL (BEAKER) (test krxj=632) 3.4 mmol/L -2.0-3.0 PATIENT TEMPERATURE (BEAKER) (test gbvt=0566) 36.8 C FIO2 (BEAKER) (test qnup=7722) 86.0 % GLUCOSE-STAT [id number] 11:39:00 Test Item Value Reference Range Comments GLUCOSE RANDOM (BEAKER) (test fmbr=033) 194 mg/dL 70-110 HGB/HCT (H&H) - STAT [id number] 11:39:00 Test Item Value Reference Range Comments HEMOGLOBIN (BEAKER) (test oiom=556) 8.8 g/dL 12.0-15.0 HEMATOCRIT (BEAKER) (test gnmq=545) 26.0 % 36.0-45.0 CALCIUM, [id number] 11:39:00 Test Item Value Reference Range Comments CALCIUM IONIZED (BEAKER) (test qewn=791) 1.06 mmol/L 1.12-1.27 PH, BLOOD (BEAKER) (test jzbi=7413) 7.44 BLOOD GAS, [id number] 10:56:00 Test Item Value Reference Range Comments PH ARTERIAL (BEAKER) (test feoy=804) 7.43 7.35-7.45 PCO2 ARTERIAL (BEAKER) (test jkmw=404) 46 mmHg 35-45 PO2 ARTERIAL (BEAKER) (test auls=871) 223 mmHg 80-90 O2 SATURATION ARTERIAL (BEAKER) (test mnak=237) 99.5 % 96.0-97.0 HCO3 ARTERIAL (BEAKER) (test lxcl=808) 30 mmol/L 21-29 BASE EXCESS ARTERIAL (BEAKER) (test gshi=092) 4.6 mmol/L -2.0-3.0 PATIENT TEMPERATURE (BEAKER) (test rdxf=4111) 37.0 C FIO2 (BEAKER) (test hmru=0919) 100.0 % GLUCOSE-STAT [id number] 10:56:00 Test Item Value Reference Range Comments GLUCOSE RANDOM (BEAKER) (test gfhw=823) 190 mg/dL 70-110 HGB/HCT (H&H) - STAT [id number] 10:56:00 Test Item Value Reference Range Comments HEMOGLOBIN (BEAKER) (test yyoj=912) 8.7 g/dL 12.0-15.0 HEMATOCRIT (BEAKER) (test aqvb=809) 26.0 % 36.0-45.0 SODIUM NA-STAT [id number] 10:55:00 Test Item Value Reference Range Comments SODIUM (BEAKER) (test awdd=883) 142 meq/L 135-148 POTASSIUM-STAT [id number] 10:55:00 Test Item Value Reference Range Comments POTASSIUM (BEAKER) (test dfwi=928) 3.5 meq/L 3.6-5.5 [id number] 08:41:00 Test Item Value Reference Range Comments MAGNESIUM (BEAKER) (test ciip=798) 2.0 mg/dL 1.6-2.6 BLOOD GAS, [id number] 07:57:00 Test Item Value Reference Range Comments PH ARTERIAL (BEAKER) (test oxrr=183) 7.48 7.35-7.45 PCO2 ARTERIAL (BEAKER) (test ecct=658) 37 mmHg 35-45 PO2 ARTERIAL (BEAKER) (test xsgw=200) 71 mmHg 80-90 O2 SATURATION ARTERIAL (BEAKER) (test xvng=617) 94.8 % 96.0-97.0 HCO3 ARTERIAL (BEAKER) (test onby=630) 27 mmol/L 21-29 BASE EXCESS ARTERIAL (BEAKER) (test vubc=507) 3.5 mmol/L -2.0-3.0 PATIENT TEMPERATURE (BEAKER) (test cmfl=5910) 37.8 C FIO2 (BEAKER) (test lkbz=3566) 32.0 % POCT-GLUCOSE [id number] 07:50:00 Test Item Value Reference Range Comments POC-GLUCOSE METER (BEAKER) 246 mg/dL 70-110 TESTED AT [facility] [address] [facility] (test dsmi=8407) [facility] [address] RAD, CHEST, 1 VIEW, NON [id number] 04:54:00Reason for exam:-> impellaShould this be performed at the bedside?->YesFINAL REPORT CLINICAL INDICATION: Support lines. Comparison: 07/23/2017 The cardiomediastinal contours are stable. Central pulmonary vascular prominence and bilateral parenchymalopacities are similar to previous. There is no pneumothorax. Support lines are stable. Signed: Adelso Sorensen Verified Date/Time: 07/24/2017 04:54:08 Reading Location: [address] Reading Room POCT-GLUCOSE [id number] 04:08:00 Test Item Value Reference Range Comments POC-GLUCOSE METER (BEAKER) 137 mg/dL 70-110 TESTED AT [facility] [address] (test kfkg=3970) [facility] [address] [id number] 03:02:00 Test Item Value Reference Range Comments PHOSPHORUS (BEAKER) (test nigl=514) 3.7 mg/dL 2.3-4.7 [id number] 03:02:00 Test Item Value Reference Range Comments MAGNESIUM (BEAKER) (test myxk=762) 2.3 mg/dL 1.6-2.6 BASIC METABOLIC [id number] 03:02:00 Test Item Value Reference Range Comments SODIUM (BEAKER) (test 145 meq/L 136-145 bjda=516) POTASSIUM (BEAKER) (test 4.0 meq/L 3.5-5.1 nazz=701) CHLORIDE (BEAKER) (test 106 meq/L 98-107 jjtl=407) CO2 (BEAKER) (test 26 meq/L 22-29 ctad=578) BLOOD UREA NITROGEN 26 mg/dL 7-21 (BEAKER) (test jfvg=120) CREATININE (BEAKER) (test 1.47 mg/dL 0.57-1.25 qbgw=849) GLUCOSE RANDOM (BEAKER) 141 mg/dL 70-105 (test kavb=176) CALCIUM (BEAKER) (test 9.0 mg/dL 8.4-10.2 lcuk=715) EGFR (BEAKER) (test 43 mL/min/1.73 sq m ESTIMATED GFR IS NOT soui=5230) ACCURATE CREATININE CLEARANCE IN PREDICTING GLOMERULAR FILTRATION RATE. ESTIMATED GFR IS NOT APPLICABLE FOR DIALYSIS PATIENTS. HEPATIC FUNCTION [id number] 03:02:00 Test Item Value Reference Range Comments TOTAL PROTEIN (BEAKER) (test edux=151) 6.6 gm/dL 6.0-8.3 ALBUMIN (BEAKER) (test uuuq=4811) 3.2 g/dL 3.5-5.0 BILIRUBIN TOTAL (BEAKER) (test jyav=749) 1.2 mg/dL 0.2-1.2 BILIRUBIN DIRECT (BEAKER) (test qhpy=550) 0.6 mg/dL 0.1-0.5 ALKALINE PHOSPHATASE (BEAKER) (test floi=628) 55 U/L 40-150 AST (SGOT) (BEAKER) (test kxku=697) 33 U/L 5-34 ALT (SGPT) (BEAKER) (test hfnu=502) 25 U/L 6-55 LACTATE DEHYDROGENASE (LDH)2017-07-24 03:02:00 Test Item Value Reference Range Comments LACTATE DEHYDROGENASE (BEAKER) (test hygn=691) 879 U/L 125-220 CBC W/PLT COUNT & AUTO [id number] 02:53:00 Test Item Value Reference Range Comments WHITE BLOOD CELL COUNT (BEAKER) (test nwyk=320) 12.6 K/ L 3.5-10.5 RED BLOOD CELL COUNT (BEAKER) (test qhbo=502) 2.93 M/ L 3.93-5.22 HEMOGLOBIN (BEAKER) (test qhvz=568) 8.7 GM/DL 11.2-15.7 HEMATOCRIT (BEAKER) (test hvly=181) 28.3 % 34.1-44.9 MEAN CORPUSCULAR VOLUME (BEAKER) (test fpvl=236) 96.6 fL 79.4-94.8 MEAN CORPUSCULAR HEMOGLOBIN (BEAKER) (test 29.7 pg 25.6-32.2 qrdk=636) MEAN CORPUSCULAR HEMOGLOBIN CONC (BEAKER) (test 30.7 GM/DL 32.2-35.5 pekr=328) RED CELL DISTRIBUTION WIDTH (BEAKER) (test 14.7 % 11.7-14.4 ibuz=474) PLATELET COUNT (BEAKER) (test bvpp=508) 126 K/CU MM 150-450 MEAN PLATELET VOLUME (BEAKER) (test smxg=666) 11.0 fL 9.4-12.3 NUCLEATED RED BLOOD CELLS (BEAKER) (test 0 /100 WBC 0-0 ohdw=964) NEUTROPHILS RELATIVE PERCENT (BEAKER) (test 78 % miul=032) LYMPHOCYTES RELATIVE PERCENT (BEAKER) (test 10 % hzmc=853) MONOCYTES RELATIVE PERCENT (BEAKER) (test 10 % bfmb=401) EOSINOPHILS RELATIVE PERCENT (BEAKER) (test 1 % rpji=252) BASOPHILS RELATIVE PERCENT (BEAKER) (test 0 % yaey=327) NEUTROPHILS ABSOLUTE COUNT (BEAKER) (test 9.85 K/ L 1.56-6.13 bmib=238) LYMPHOCYTES ABSOLUTE COUNT (BEAKER) (test 1.27 K/ L 1.18-3.74 gdpt=222) MONOCYTES ABSOLUTE COUNT (BEAKER) (test 1.25 K/ L 0.24-0.36 atrt=769) EOSINOPHILS ABSOLUTE COUNT (BEAKER) (test 0.10 K/ L 0.04-0.36 nsxq=711) BASOPHILS ABSOLUTE COUNT (BEAKER) (test 0.05 K/ L 0.01-0.08 hctp=167) IMMATURE GRANULOCYTES-RELATIVE PERCENT (BEAKER) 1 % 0-1 (test kreu=7178) [id number] 02:50:00 Test Item Value Reference Range Comments PROTIME (BEAKER) (test xqfv=743) 16.7 seconds 11.7-14.7 INR (BEAKER) (test vplb=473) 1.4 <=5.9 PARTIAL THROMBOPLASTIN TIME (BEAKER) (test 78.5 seconds 22.5-36.0 plxk=057) RECOMMENDED COUMADIN/WARFARIN INR THERAPY RANGESSTANDARD DOSE: 2.0 - 3.0 Includes: PROPHYLAXIS forvenous thrombosis, systemic embolization; TREATMENT for venous thrombosis and/or pulmonary embolus.HIGH RISK: Target INR is 2.5-3.5 for patients with mechanical heart valves.BLOOD [id number] 00:00:00 Test Item Value Reference Range Comments CULTURE (BEAKER) (test xqkh=2639) No growth in 5 days BLOOD [id number] 00:00:00 Test Item Value Reference Range Comments CULTURE (BEAKER) (test irmb=1093) No growth in 5 days [id number] 22:01:00 Test Item Value Reference Range Comments MAGNESIUM (BEAKER) (test sbui=421) 2.0 mg/dL 1.6-2.6 POCT-GLUCOSE [id number] 19:39:00 Test Item Value Reference Range Comments POC-GLUCOSE METER (BEAKER) 135 mg/dL 70-110 TESTED AT [facility] [address] [facility] (test vtxp=4000) [facility] [address] BASIC METABOLIC [id number] 19:08:00 Test Item Value Reference Range Comments SODIUM (BEAKER) (test 145 meq/L 136-145 cbjo=091) POTASSIUM (BEAKER) (test 3.9 meq/L 3.5-5.1 iylb=173) CHLORIDE (BEAKER) (test 106 meq/L 98-107 lzpy=407) CO2 (BEAKER) (test 28 meq/L 22-29 cqwa=662) BLOOD UREA NITROGEN 26 mg/dL 7-21 (BEAKER) (test cuti=300) CREATININE (BEAKER) (test 1.45 mg/dL 0.57-1.25 ucuc=945) GLUCOSE RANDOM (BEAKER) 119 mg/dL 70-105 (test jmzy=513) CALCIUM (BEAKER) (test 9.2 mg/dL 8.4-10.2 mtxl=545) EGFR (BEAKER) (test 43 mL/min/1.73 sq m ESTIMATED GFR IS NOT gwxk=4579) ACCURATE CREATININE CLEARANCE IN PREDICTING GLOMERULAR FILTRATION RATE. ESTIMATED GFR IS NOT APPLICABLE FOR DIALYSIS PATIENTS. [id number] 19:06:00 Test Item Value Reference Range Comments PHOSPHORUS (BEAKER) (test iece=694) 3.7 mg/dL 2.3-4.7 VANCOMYCIN LEVEL, [id number] 16:33:00 Test Item Value Reference Range Comments VANCOMYCIN TROUGH (BEAKER) (test codn=164) 17.8 ug/mL 10.0-20.0 If vancomycin trough level > 20 mcg/mL, hold next vancomycin dose, and contact MD and pharmacist.VARICELLA ZOSTER ANTIBODY, [id number] 14:47:00 Test Item Value Reference Range Comments VARICELLA ZOSTER IGG (AL) (BEAKER) (test vdll=9647) 2.3 Al VARICELLA ZOSTER RESULT INTERPRETATIONS: <=0.8 Al Nonreactive: Presumed non-immune to VZV 0.9-1.0 Al Equivocal >=1.1 Al Reactive: Presumed immune to VZVCYTOMEGALOVIRUS ANTIBODY, [id number] 14:46:00 Test Item Value Reference Range Comments CYTOMEGALOVIRUS IGG ANTIBODY (BEAKER) (test Negative zqjd=391) CYTOMEGALOVIRUS ANTIBODY, [id number] 14:46:00 Test Item Value Reference Range Comments CYTOMEGALOVIRUS IGM ANTIBODY (BEAKER) (test Negative iqcn=067) EBV-VCA ANTIBODY, [id number] 14:46:00 Test Item Value Reference Range Comments MARIO-CARMEN VCA IGG (BEAKER) (test ptju=784) Positive EBV-VCA ANTIBODY, [id number] 14:46:00 Test Item Value Reference Range Comments MARIO-CARMEN VCA IGM (BEAKER) (test hund=883) Negative HERPES VIRUS ANTIBODY, [id number] 14:45:00 Test Item Value Reference Range Comments HERPES VIRUS IGG (BEAKER) (test pgwq=4164) Negative HSV IgG 1=NEGATIVEHSV IgG 2=NEGATIVETOXOPLASMA GONDII ANTIBODY, [id number] 14 :45:00 Test Item Value Reference Range Comments TOXOPLASMA GONDII IGG (BEAKER) (test qhxq=204) Negative [id number] 14:37:00 Test Item Value Reference Range Comments PARTIAL THROMBOPLASTIN TIME (BEAKER) (test 69.5 seconds 22.5-36.0 mnst=787) OCCULT BLOOD, [id number] 14:34:00 Test Item Value Reference Range Comments FECAL OCCULT BLOOD (BEAKER) (test hiwp=224) Negative Negative POCT-GLUCOSE [id number] 14:20:00 Test Item Value Reference Range Comments POC-GLUCOSE METER (BEAKER) 166 mg/dL 70-110 TESTED AT [address] (test gtid=2292) [facility] [address] POCT-GLUCOSE [id number] 14:20:00 Test Item Value Reference Range Comments POC-GLUCOSE METER (BEAKER) 82 mg/dL 70-110 TESTED AT [address] (test lpei=1204) [facility] [address] [id number] 13:00:00 Test Item Value Reference Range Comments PHOSPHORUS (BEAKER) (test mtlo=757) 3.2 mg/dL 2.3-4.7 BASIC METABOLIC [id number] 13:00:00 Test Item Value Reference Range Comments SODIUM (BEAKER) (test 143 meq/L 136-145 tdqq=591) POTASSIUM (BEAKER) (test 3.8 meq/L 3.5-5.1 adxl=176) CHLORIDE (BEAKER) (test 104 meq/L 98-107 abia=039) CO2 (BEAKER) (test 29 meq/L 22-29 fbhz=018) BLOOD UREA NITROGEN 28 mg/dL 7-21 (BEAKER) (test ewuh=812) CREATININE (BEAKER) (test 1.44 mg/dL 0.57-1.25 lndy=794) GLUCOSE RANDOM (BEAKER) 171 mg/dL 70-105 (test qwqk=596) CALCIUM (BEAKER) (test 9.1 mg/dL 8.4-10.2 limf=448) EGFR (BEAKER) (test 44 mL/min/1.73 sq m ESTIMATED GFR IS NOT ikux=7309) ACCURATE CREATININE CLEARANCE IN PREDICTING GLOMERULAR FILTRATION RATE. ESTIMATED GFR IS NOT APPLICABLE FOR DIALYSIS PATIENTS. POCT-GLUCOSE [id number] 12:29:00 Test Item Value Reference Range Comments POC-GLUCOSE METER (BEAKER) 179 mg/dL 70-110 TESTED AT [address] (test uemb=9762) [facility] [address] CREATININE [id number] 11:15:00 Test Item Value Reference Range Comments CREATININE CLEARANCE (BEAKER) 45.8 mL/min 70.0-140.0 (test qhxk=137) VOLUME, TOTAL (BEAKER) (test 3400 ml knbp=6860) CREATININE URINE (BEAKER) (test 36.8 mg/dL flrw=146) [id number] (BEAKER) Анна Encarnacion MD (test cais=6080) (electronic signature) PATIENT HEIGHT (CM) (BEAKER) 165.1 cm (test qtzi=8340) PATIENT WEIGHT (KG) (BEAKER) 84.100 kg (test ewqu=3835) [id number] 09:15:00 Test Item Value Reference Range Comments POTASSIUM (BEAKER) (test ntdx=130) 4.1 meq/L 3.5-5.1 PRN - repeat potassium levels every 1 hour until glucose level is less than 450 mg/[id number] 09:15:00 Test Item Value Reference Range Comments MAGNESIUM (BEAKER) (test pqxn=148) 2.4 mg/dL 1.6-2.6 PRN - repeat potassium levels every 1 hour until glucose level is less than 450 mg/dLPOCT-GLUCOSE [id number] 08:47:00 Test Item Value Reference Range Comments POC-GLUCOSE METER (BEAKER) 155 mg/dL 70-110 TESTED AT [address] (test wfgy=1633) [facility] [address] POCT-GLUCOSE [id number] 06:12:00 Test Item Value Reference Range Comments POC-GLUCOSE METER (BEAKER) 143 mg/dL 70-110 TESTED AT [facility] [address] [facility] (test rmnm=9305) [facility] [address] POCT-GLUCOSE [id number] 06:12:00 Test Item Value Reference Range Comments POC-GLUCOSE METER (BEAKER) 123 mg/dL 70-110 TESTED AT [facility] [address] [facility] (test hukg=8050) [facility] [address] RAD, CHEST, 1 VIEW, NON [id number] 05:36:00Reason for exam:->respiratory insufficiencyFINAL REPORT Chest one view. Clinical history: respiratory insufficiency Comparison: Chest radiograph 07/22/2017 Technique: A single frontal view of the chest was obtained. Findings: Cardiomediastinal contours are unchanged. There is a right IJ [place]-Jagdeep catheter, with tip inthe right pulmonary [...] stent in the mid abdomen. Signed: Alexia Ramirezort Verified Date/Time: 07/23/2017 05:36:35 Reading Location: [address] Reading Room CALCIUM, [id number] 05:19:00 Test Item Value Reference Range Comments CALCIUM IONIZED (BEAKER) (test qsor=203) 1.12 mmol/L 1.12-1.27 PH, BLOOD (BEAKER) (test qxkf=8920) 7.40 OXYGEN SATURATION, [id number] 05:18:00 Test Item Value Reference Range Comments O2 SATURATION (MEASURED) (BEAKER) (test tcxd=7450) 63.1 % POCT-GLUCOSE [id number] 05:05:00 Test Item Value Reference Range Comments POC-GLUCOSE METER (BEAKER) 131 mg/dL 70-110 TESTED AT [facility] [address] (test eblj=5549) [place] [address] BLOOD GAS, [id number] 04:58:00 Test Item Value Reference Range Comments PH ARTERIAL (BEAKER) (test fomq=626) 7.41 7.35-7.45 PCO2 ARTERIAL (BEAKER) (test mgml=890) 51 mmHg 35-45 PO2 ARTERIAL (BEAKER) (test cfca=090) 93 mmHg 80-90 O2 SATURATION ARTERIAL (BEAKER) (test sjgv=546) 96.9 % 96.0-97.0 HCO3 ARTERIAL (BEAKER) (test yzue=948) 31 mmol/L 21-29 BASE EXCESS ARTERIAL (BEAKER) (test sgyo=067) 5.9 mmol/L -2.0-3.0 PATIENT TEMPERATURE (BEAKER) (test gdfn=1600) 37.4 C FIO2 (BEAKER) (test sfre=3695) 70.0 % [id number] 03:35:00 Test Item Value Reference Range Comments PARTIAL THROMBOPLASTIN TIME (BEAKER) (test 70.8 seconds 22.5-36.0 xjpd=813) [id number] 03:34:00 Test Item Value Reference Range Comments PHOSPHORUS (BEAKER) (test svcq=448) 3.0 mg/dL 2.3-4.7 [id number] 03:34:00 Test Item Value Reference Range Comments MAGNESIUM (BEAKER) (test qkao=328) 2.1 mg/dL 1.6-2.6 BASIC METABOLIC [id number] 03:34:00 Test Item Value Reference Range Comments SODIUM (BEAKER) (test 144 meq/L 136-145 emub=267) POTASSIUM (BEAKER) (test 3.9 meq/L 3.5-5.1 fgcm=294) CHLORIDE (BEAKER) (test 105 meq/L 98-107 qaeh=456) CO2 (BEAKER) (test 29 meq/L 22-29 eybq=103) BLOOD UREA NITROGEN 29 mg/dL 7-21 (BEAKER) (test gqbx=315) CREATININE (BEAKER) (test 1.54 mg/dL 0.57-1.25 sago=268) GLUCOSE RANDOM (BEAKER) 119 mg/dL 70-105 (test dwck=428) CALCIUM (BEAKER) (test 9.1 mg/dL 8.4-10.2 kstv=601) EGFR (BEAKER) (test 40 mL/min/1.73 sq m ESTIMATED GFR IS NOT sizw=0255) ACCURATE CREATININE CLEARANCE IN PREDICTING GLOMERULAR FILTRATION RATE. ESTIMATED GFR IS NOT APPLICABLE FOR DIALYSIS PATIENTS. HEPATIC FUNCTION [id number] 03:34:00 Test Item Value Reference Range Comments TOTAL PROTEIN (BEAKER) (test jmmv=772) 6.7 gm/dL 6.0-8.3 ALBUMIN (BEAKER) (test pqmj=3470) 3.3 g/dL 3.5-5.0 BILIRUBIN TOTAL (BEAKER) (test jcvu=418) 1.2 mg/dL 0.2-1.2 BILIRUBIN DIRECT (BEAKER) (test smqa=457) 0.6 mg/dL 0.1-0.5 ALKALINE PHOSPHATASE (BEAKER) (test hqmt=104) 51 U/L 40-150 AST (SGOT) (BEAKER) (test pmby=089) 48 U/L 5-34 ALT (SGPT) (BEAKER) (test ltwj=841) 29 U/L 6-55 LACTATE DEHYDROGENASE (LDH)2017-07-23 03:34:00 Test Item Value Reference Range Comments LACTATE DEHYDROGENASE (BEAKER) (test ueek=752) 1020 U/L 125-220 CBC W/PLT COUNT & AUTO [id number] 03:25:00 Test Item Value Reference Range Comments WHITE BLOOD CELL COUNT (BEAKER) (test vado=501) 11.7 K/ L 3.5-10.5 RED BLOOD CELL COUNT (BEAKER) (test ymug=878) 3.01 M/ L 3.93-5.22 HEMOGLOBIN (BEAKER) (test occd=246) 9.0 GM/DL 11.2-15.7 HEMATOCRIT (BEAKER) (test tojr=935) 28.9 % 34.1-44.9 MEAN CORPUSCULAR VOLUME (BEAKER) (test qbri=896) 96.0 fL 79.4-94.8 MEAN CORPUSCULAR HEMOGLOBIN (BEAKER) (test 29.9 pg 25.6-32.2 biay=922) MEAN CORPUSCULAR HEMOGLOBIN CONC (BEAKER) (test 31.1 GM/DL 32.2-35.5 siid=791) RED CELL DISTRIBUTION WIDTH (BEAKER) (test 15.0 % 11.7-14.4 ptyn=051) PLATELET COUNT (BEAKER) (test ukby=877) 128 K/CU MM 150-450 MEAN PLATELET VOLUME (BEAKER) (test kjjn=394) 11.3 fL 9.4-12.3 NUCLEATED RED BLOOD CELLS (BEAKER) (test 0 /100 WBC 0-0 owiq=255) NEUTROPHILS RELATIVE PERCENT (BEAKER) (test 78 % kzqp=477) LYMPHOCYTES RELATIVE PERCENT (BEAKER) (test 11 % ipet=478) MONOCYTES RELATIVE PERCENT (BEAKER) (test 10 % svzw=794) EOSINOPHILS RELATIVE PERCENT (BEAKER) (test 1 % abdb=475) BASOPHILS RELATIVE PERCENT (BEAKER) (test 0 % mtup=939) NEUTROPHILS ABSOLUTE COUNT (BEAKER) (test 9.07 K/ L 1.56-6.13 qbfy=901) LYMPHOCYTES ABSOLUTE COUNT (BEAKER) (test 1.25 K/ L 1.18-3.74 qlxu=746) MONOCYTES ABSOLUTE COUNT (BEAKER) (test 1.12 K/ L 0.24-0.36 sbtx=536) EOSINOPHILS ABSOLUTE COUNT (BEAKER) (test 0.12 K/ L 0.04-0.36 olnm=861) BASOPHILS ABSOLUTE COUNT (BEAKER) (test 0.05 K/ L 0.01-0.08 rrmm=564) IMMATURE GRANULOCYTES-RELATIVE PERCENT (BEAKER) 1 % 0-1 (test zbix=1512) POCT-GLUCOSE [id number] 03:09:00 Test Item Value Reference Range Comments POC-GLUCOSE METER (BEAKER) 114 mg/dL 70-110 TESTED AT [address] (test rcxh=6870) [place] [address] POCT-GLUCOSE [id number] 03:09:00 Test Item Value Reference Range Comments POC-GLUCOSE METER (BEAKER) 122 mg/dL 70-110 TESTED AT [address] (test gqtr=3649) [place] [address] BASIC METABOLIC [id number] 00:32:00 Test Item Value Reference Range Comments SODIUM (BEAKER) (test 144 meq/L 136-145 uglc=509) POTASSIUM (BEAKER) (test 4.2 meq/L 3.5-5.1 rqxm=223) CHLORIDE (BEAKER) (test 105 meq/L 98-107 trxx=782) CO2 (BEAKER) (test 28 meq/L 22-29 pdrx=742) BLOOD UREA NITROGEN 30 mg/dL 7-21 (BEAKER) (test umvy=458) CREATININE (BEAKER) (test 1.56 mg/dL 0.57-1.25 wdlm=466) GLUCOSE RANDOM (BEAKER) 131 mg/dL 70-105 (test bvmp=979) CALCIUM (BEAKER) (test 9.0 mg/dL 8.4-10.2 horo=086) EGFR (BEAKER) (test 40 mL/min/1.73 sq m ESTIMATED GFR IS NOT umvf=9148) ACCURATE CREATININE CLEARANCE IN PREDICTING GLOMERULAR FILTRATION RATE. ESTIMATED GFR IS NOT APPLICABLE FOR DIALYSIS PATIENTS. [id number] 00:31:00 Test Item Value Reference Range Comments PHOSPHORUS (BEAKER) (test iagt=552) 3.4 mg/dL 2.3-4.7 POCT-GLUCOSE [id number] 00:10:00 Test Item Value Reference Range Comments POC-GLUCOSE METER (BEAKER) 140 mg/dL 70-110 TESTED AT [address] (test ousm=1135) [place] [id number] POCT-GLUCOSE [id number] 00:08:00 Test Item Value Reference Range Comments POC-GLUCOSE METER (BEAKER) 121 mg/dL 70-110 TESTED AT [address] (test inlx=6408) [facility] [address] POCT-GLUCOSE [id number] 00:08:00 Test Item Value Reference Range Comments POC-GLUCOSE METER (BEAKER) 112 mg/dL 70-110 TESTED AT [address] (test tlyg=1904) [place] [id number] POCT-GLUCOSE [id number] 00:08:00 Test Item Value Reference Range Comments POC-GLUCOSE METER (BEAKER) 84 mg/dL 70-110 TESTED AT [address] (test zoxo=9422) [facility] [address] BASIC METABOLIC [id number] 20:36:00 Test Item Value Reference Range Comments SODIUM (BEAKER) (test 145 meq/L 136-145 nvbp=052) POTASSIUM (BEAKER) (test 3.6 meq/L 3.5-5.1 snzq=020) CHLORIDE (BEAKER) (test 106 meq/L 98-107 yjtd=871) CO2 (BEAKER) (test 31 meq/L 22-29 jlma=449) BLOOD UREA NITROGEN 32 mg/dL 7-21 (BEAKER) (test ijos=099) CREATININE (BEAKER) (test 1.56 mg/dL 0.57-1.25 bola=536) GLUCOSE RANDOM (BEAKER) 85 mg/dL 70-105 (test fmup=387) CALCIUM (BEAKER) (test 9.0 mg/dL 8.4-10.2 dzvs=259) EGFR (BEAKER) (test 40 mL/min/1.73 sq m ESTIMATED GFR IS NOT jram=4099) ACCURATE CREATININE CLEARANCE IN PREDICTING GLOMERULAR FILTRATION RATE. ESTIMATED GFR IS NOT APPLICABLE FOR DIALYSIS PATIENTS. [id number] 20:36:00 Test Item Value Reference Range Comments MAGNESIUM (BEAKER) (test raxz=034) 2.4 mg/dL 1.6-2.6 [id number] 18:26:00 Test Item Value Reference Range Comments PHOSPHORUS (BEAKER) (test ihfq=091) 2.4 mg/dL 2.3-4.7 BASIC METABOLIC [id number] 18:26:00 Test Item Value Reference Range Comments SODIUM (BEAKER) (test 144 meq/L 136-145 engi=768) POTASSIUM (BEAKER) (test 3.9 meq/L 3.5-5.1 esrz=907) CHLORIDE (BEAKER) (test 106 meq/L 98-107 pxna=449) CO2 (BEAKER) (test 30 meq/L 22-29 xiae=008) BLOOD UREA NITROGEN 32 mg/dL 7-21 (BEAKER) (test psxw=946) CREATININE (BEAKER) (test 1.67 mg/dL 0.57-1.25 yyqc=061) GLUCOSE RANDOM (BEAKER) 141 mg/dL 70-105 (test otey=841) CALCIUM (BEAKER) (test 9.1 mg/dL 8.4-10.2 yqkz=324) EGFR (BEAKER) (test 37 mL/min/1.73 sq m ESTIMATED GFR IS NOT apqi=1409) ACCURATE CREATININE CLEARANCE IN PREDICTING GLOMERULAR FILTRATION RATE. ESTIMATED GFR IS NOT APPLICABLE FOR DIALYSIS PATIENTS. LACTIC ACID, ARTERIAL, WHOLE [id number] 18:22:00 Test Item Value Reference Range Comments LACTATE BLOOD ARTERIAL (2) (BEAKER) (test 1.0 mmol/L 0.5-2.2 atdw=9057) Effective 08/06/2015: Units/Reference Range ChangeNew: 0.5-2.2 mmol/L Previous: 5 -20 mg/dLPOCT-GLUCOSE [id number] 17:56:00 Test Item Value Reference Range Comments POC-GLUCOSE METER (BEAKER) 138 mg/dL 70-110 TESTED AT [address] (test oxbb=0937) [place] [address] [id number] 16:19:00 Test Item Value Reference Range Comments POTASSIUM (BEAKER) (test efns=412) 3.8 meq/L 3.5-5.1 PRN - repeat potassium levels every 1 hour until glucose level is less than 450 mg/[id number] 16:06:00 Test Item Value Reference Range Comments PARTIAL THROMBOPLASTIN TIME (BEAKER) (test 71.3 seconds 22.5-36.0 gjlr=543) OXYGEN SATURATION, [id number] 15:58:00 Test Item Value Reference Range Comments O2 SATURATION (MEASURED) (BEAKER) (test uywy=6850) 58.6 % calibrationPOCT-GLUCOSE [id number] 15:51:00 Test Item Value Reference Range Comments POC-GLUCOSE METER (BEAKER) 147 mg/dL 70-110 TESTED AT [address] (test fixn=8674) [place] [address] RAD, CHEST, 1 VIEW, NON [id number] 14:57:00Reason for exam:->s/p CVC placement Should this be performed at the bedside?->YesFINAL REPORT TECHNIQUE: Frontal chest radiograph dated 07/22/2017. CLINICAL HISTORY: CVC placement COMPARISON STUDY: Chest radiograph performed earlier the same day. IMPRESSION:There has been interval placement of a right-sided [place]- Jagdeep catheter with the tip in the main pulmonary artery. Impella device is unchanged in appearance. There is left lung base atelectasis. No pleural effusion or pneumothorax. Cardiomediastinal silhouette is normal in size. No pulmonary edema. Bonesare osteopenic. No fracture. Signed: Dawson Noel MDReport Verified Date/Time: 07/22/2017 14:57:48 Reading Location: [facility] Radiology Reading Room PROTEIN ELECTROPHORESIS, [id number] 14:45:00 Test Item Value Reference Range Comments ALBUMIN FRACTION (BEAKER) 3.0 g/dL 3.5-5.5 (test cuag=806) ALPHA 1 FRACTION (BEAKER) 0.4 g/dL 0.2-0.4 (test fftv=392) ALPHA 2 FRACTION (BEAKER) 0.5 g/dL 0.5-0.9 (test gmva=384) BETA FRACTION (BEAKER) (test 1.0 g/dL 0.6-1.1 afvv=120) GAMMA GLOBULIN FRACTION 1.2 g/dL 0.7-1.7 (BEAKER) (test tsor=660) INTERPRETATION-119 (BEAKER) Albumin decreased. Alpha (test vlua=8133) globulin percentages increased. This suggests an acute phase response. APCY-[id number]-201 (BEAKER) Анна Encarnacion MD (electronic (test yuxf=0181) signature) PROTEIN TOTAL SERUM, SPEP 6.1 gm/dL 6.0-8.3 (BEAKER) (test jilm=3745) POCT-GLUCOSE [id number] 14:34:00 Test Item Value Reference Range Comments POC-GLUCOSE METER (BEAKER) 137 mg/dL 70-110 TESTED AT [facility] [address] [facility] (test kbdp=7602) [facility] [address] ANTI-NUCLEAR ANTIBODY (ROSLYN)2017-07-22 13:24:00 Test Item Value Reference Range Comments ANTI-NUCLEAR ANTIBODY (ROSLYN) (BEAKER) (test Positive Negative gprv=711) ROSLYN TITER AND [id number] 13:24:00 Test Item Value Reference Range Comments ROSLYN TITER (BEAKER) (test dmsr=1807) :640 ROSLYN PATTERN (BEAKER) (test oiww=4113) Homogeneous [id number] 12:50:00 Test Item Value Reference Range Comments PHOSPHORUS (BEAKER) (test nwgw=330) 2.5 mg/dL 2.3-4.7 BASIC METABOLIC [id number] 12:50:00 Test Item Value Reference Range Comments SODIUM (BEAKER) (test 145 meq/L 136-145 mnpm=504) POTASSIUM (BEAKER) (test 3.6 meq/L 3.5-5.1 abrz=735) CHLORIDE (BEAKER) (test 107 meq/L 98-107 bfyw=308) CO2 (BEAKER) (test 30 meq/L 22-29 gzhq=159) BLOOD UREA NITROGEN 37 mg/dL 7-21 (BEAKER) (test glwq=112) CREATININE (BEAKER) (test 1.69 mg/dL 0.57-1.25 jdyp=003) GLUCOSE RANDOM (BEAKER) 154 mg/dL 70-105 (test yoxa=924) CALCIUM (BEAKER) (test 8.9 mg/dL 8.4-10.2 qsog=863) EGFR (BEAKER) (test 36 mL/min/1.73 sq m ESTIMATED GFR IS NOT lktm=0138) ACCURATE CREATININE CLEARANCE IN PREDICTING GLOMERULAR FILTRATION RATE. ESTIMATED GFR IS NOT APPLICABLE FOR DIALYSIS PATIENTS. BLOOD GAS, [id number] 12:36:00 Test Item Value Reference Range Comments PH ARTERIAL (BEAKER) (test wlnw=118) 7.48 7.35-7.45 PCO2 ARTERIAL (BEAKER) (test etzo=460) 44 mmHg 35-45 PO2 ARTERIAL (BEAKER) (test qpkh=232) 156 mmHg 80-90 O2 SATURATION ARTERIAL (BEAKER) (test njgw=997) 99.1 % 96.0-97.0 HCO3 ARTERIAL (BEAKER) (test rxus=385) 32 mmol/L 21-29 BASE EXCESS ARTERIAL (BEAKER) (test ipev=985) 7.4 mmol/L -2.0-3.0 PATIENT TEMPERATURE (BEAKER) (test zgwc=2647) 37.4 C FIO2 (BEAKER) (test uckf=0516) 80.0 % POCT-GLUCOSE [id number] 12:26:00 Test Item Value Reference Range Comments POC-GLUCOSE METER (BEAKER) 147 mg/dL 70-110 TESTED AT [facility] [address] (test jflj=1649) [facility] [address] URINE [id number] 11:56:00 Test Item Value Reference Range Comments CULTURE (BEAKER) (test ghmt=9441) No growth POCT-GLUCOSE [id number] 11:11:00 Test Item Value Reference Range Comments POC-GLUCOSE METER (BEAKER) 172 mg/dL 70-110 TESTED AT [address] (test dvor=6106) [facility] [address] POCT-GLUCOSE [id number] 09:54:00 Test Item Value Reference Range Comments POC-GLUCOSE METER (BEAKER) 196 mg/dL 70-110 TESTED AT [address] (test ljaa=4038) [place] [address] LACTIC ACID, ARTERIAL, WHOLE [id number] 09:07:00 Test Item Value Reference Range Comments LACTATE BLOOD ARTERIAL (2) (BEAKER) (test 0.7 mmol/L 0.5-2.2 hvrh=4606) Effective 08/06/2015: Units/Reference Range ChangeNew: 0.5-2.2 mmol/L Previous: 5 -20 mg/[id number] 09:06:00 Test Item Value Reference Range Comments MAGNESIUM (BEAKER) (test horq=828) 2.2 mg/dL 1.6-2.6 POCT-GLUCOSE [id number] 08:39:00 Test Item Value Reference Range Comments POC-GLUCOSE METER (BEAKER) 188 mg/dL 70-110 TESTED AT [address] (test afad=5760) [place] [id number] POCT-GLUCOSE [id number] 08:37:00 Test Item Value Reference Range Comments POC-GLUCOSE METER (BEAKER) 195 mg/dL 70-110 TESTED AT [address] (test onup=1292) [facility] [address] BLOOD GAS, [id number] 06:46:00 Test Item Value Reference Range Comments PH ARTERIAL (BEAKER) (test fxpv=690) 7.47 7.35-7.45 PCO2 ARTERIAL (BEAKER) (test dtxq=175) 44 mmHg 35-45 PO2 ARTERIAL (BEAKER) (test rlzn=919) 57 mmHg 80-90 O2 SATURATION ARTERIAL (BEAKER) (test fqkj=191) 91.1 % 96.0-97.0 HCO3 ARTERIAL (BEAKER) (test kwfn=032) 32 mmol/L 21-29 BASE EXCESS ARTERIAL (BEAKER) (test bwkf=236) 7.1 mmol/L -2.0-3.0 PATIENT TEMPERATURE (BEAKER) (test znmn=6655) 37.0 C [id number] 06:14:00 Test Item Value Reference Range Comments RPR SCREEN (BEAKER) (test xqcw=627) Nonreactive Nonreactive CALCIUM, [id number] 05:52:00 Test Item Value Reference Range Comments CALCIUM IONIZED (BEAKER) (test yvaf=386) 1.13 mmol/L 1.12-1.27 PH, BLOOD (BEAKER) (test roun=8122) 7.46 [id number] 05:42:00 Test Item Value Reference Range Comments PHOSPHORUS (BEAKER) (test umoo=222) 2.2 mg/dL 2.3-4.7 [id number] 05:42:00 Test Item Value Reference Range Comments MAGNESIUM (BEAKER) (test ifpq=855) 2.1 mg/dL 1.6-2.6 HEPATIC FUNCTION [id number] 05:42:00 Test Item Value Reference Range Comments TOTAL PROTEIN (BEAKER) (test tmiv=038) 6.2 gm/dL 6.0-8.3 ALBUMIN (BEAKER) (test xvqg=3706) 3.1 g/dL 3.5-5.0 BILIRUBIN TOTAL (BEAKER) (test wmwj=850) 1.4 mg/dL 0.2-1.2 BILIRUBIN DIRECT (BEAKER) (test byrp=380) 0.7 mg/dL 0.1-0.5 ALKALINE PHOSPHATASE (BEAKER) (test sgtp=771) 49 U/L 40-150 AST (SGOT) (BEAKER) (test inzm=586) 74 U/L 5-34 ALT (SGPT) (BEAKER) (test upav=130) 37 U/L 6-55 LACTATE DEHYDROGENASE (LDH)2017-07-22 05:42:00 Test Item Value Reference Range Comments LACTATE DEHYDROGENASE (BEAKER) (test vfpq=836) 1339 U/L 125-220 [id number] 05:40:00 Test Item Value Reference Range Comments PHOSPHORUS (BEAKER) (test ldfw=107) 2.2 mg/dL 2.3-4.7 BASIC METABOLIC [id number] 05:40:00 Test Item Value Reference Range Comments SODIUM (BEAKER) (test 144 meq/L 136-145 bksr=659) POTASSIUM (BEAKER) (test 4.0 meq/L 3.5-5.1 hkci=233) CHLORIDE (BEAKER) (test 107 meq/L 98-107 hpmy=711) CO2 (BEAKER) (test 28 meq/L 22-29 ogeh=688) BLOOD UREA NITROGEN 36 mg/dL 7-21 (BEAKER) (test xwxm=593) CREATININE (BEAKER) (test 1.79 mg/dL 0.57-1.25 rcnj=047) GLUCOSE RANDOM (BEAKER) 183 mg/dL 70-105 (test wrxj=745) CALCIUM (BEAKER) (test 8.9 mg/dL 8.4-10.2 ldlx=521) EGFR (BEAKER) (test 34 mL/min/1.73 sq m ESTIMATED GFR IS NOT blnl=5150) ACCURATE CREATININE CLEARANCE IN PREDICTING GLOMERULAR FILTRATION RATE. ESTIMATED GFR IS NOT APPLICABLE FOR DIALYSIS PATIENTS. OXYGEN SATURATION, [id number] 05:29:00 Test Item Value Reference Range Comments O2 SATURATION (MEASURED) (BEAKER) (test etzi=3189) 54.7 % [id number] 05:29:00 Test Item Value Reference Range Comments PARTIAL THROMBOPLASTIN TIME (BEAKER) (test 70.7 seconds 22.5-36.0 xxkj=966) CBC W/PLT COUNT & AUTO [id number] 05:24:00 Test Item Value Reference Range Comments WHITE BLOOD CELL COUNT (BEAKER) (test sgqk=471) 13.0 K/ L 3.5-10.5 RED BLOOD CELL COUNT (BEAKER) (test tqdt=316) 3.04 M/ L 3.93-5.22 HEMOGLOBIN (BEAKER) (test uvjl=208) 9.0 GM/DL 11.2-15.7 HEMATOCRIT (BEAKER) (test vwiw=720) 29.0 % 34.1-44.9 MEAN CORPUSCULAR VOLUME (BEAKER) (test ykfk=733) 95.4 fL 79.4-94.8 MEAN CORPUSCULAR HEMOGLOBIN (BEAKER) (test 29.6 pg 25.6-32.2 phwf=946) MEAN CORPUSCULAR HEMOGLOBIN CONC (BEAKER) (test 31.0 GM/DL 32.2-35.5 hjzw=907) RED CELL DISTRIBUTION WIDTH (BEAKER) (test 15.5 % 11.7-14.4 azrx=525) PLATELET COUNT (BEAKER) (test ikks=776) 132 K/CU MM 150-450 MEAN PLATELET VOLUME (BEAKER) (test fyna=645) 11.4 fL 9.4-12.3 NUCLEATED RED BLOOD CELLS (BEAKER) (test 0 /100 WBC 0-0 wgkf=249) NEUTROPHILS RELATIVE PERCENT (BEAKER) (test 80 % rgaa=073) LYMPHOCYTES RELATIVE PERCENT (BEAKER) (test 10 % lfbt=809) MONOCYTES RELATIVE PERCENT (BEAKER) (test 9 % rwka=548) EOSINOPHILS RELATIVE PERCENT (BEAKER) (test 0 % kpqj=475) BASOPHILS RELATIVE PERCENT (BEAKER) (test 0 % irhk=350) NEUTROPHILS ABSOLUTE COUNT (BEAKER) (test 10.44 K/ L 1.56-6.13 rxvf=028) LYMPHOCYTES ABSOLUTE COUNT (BEAKER) (test 1.29 K/ L 1.18-3.74 swlw=153) MONOCYTES ABSOLUTE COUNT (BEAKER) (test 1.12 K/ L 0.24-0.36 ywkq=427) EOSINOPHILS ABSOLUTE COUNT (BEAKER) (test 0.01 K/ L 0.04-0.36 fcgf=378) BASOPHILS ABSOLUTE COUNT (BEAKER) (test 0.04 K/ L 0.01-0.08 lyrd=620) IMMATURE GRANULOCYTES-RELATIVE PERCENT (BEAKER) 1 % 0-1 (test ncgd=7245) RAD, CHEST, 1 VIEW, NON [id number] 04:45:00Reason for exam:->respiratory insufficiencyFINAL REPORT CLINICAL INDICATION: Respiratory insufficiency Comparison: 07/21/2017 The cardiomediastinal contours are stable. The left hemidiaphragm is slightly elevated. Centralpulmonary vascular congestion and bilateral parenchymal opacities are unchanged. There is no pneumothorax. A femoral Impella device remains in place. Signed: Adelso Sorensen Verified Date/Time:07/22/2017 04:45:12 Reading Location: [address] Reading Room POCT-GLUCOSE [id number] 03:01:00 Test Item Value Reference Range Comments POC-GLUCOSE METER (BEAKER) 115 mg/dL 70-110 TESTED AT [address] (test didn=7662) [facility] [address] POCT-GLUCOSE [id number] 00:14:00 Test Item Value Reference Range Comments POC-GLUCOSE METER (BEAKER) 137 mg/dL 70-110 TESTED AT [address] (test olei=9914) [place] [address] [id number] 00:09:00 Test Item Value Reference Range Comments POTASSIUM (BEAKER) (test ilhz=876) 3.8 meq/L 3.5-5.1 PRN - repeat glucose levels every 1 hour or as specified by insulin titration orders until glucose level is less than 450 mg/dLCheck Serum Potassium level 2 hours after oral potassium replacement completed or 30 min after intravenous potassium replacement.[id number] 00:09:00 Test Item Value Reference Range Comments MAGNESIUM (BEAKER) (test awbi=793) 2.5 mg/dL 1.6-2.6 PRN - repeat glucose levels every 1 hour or as specified by insulin titration orders until glucose level is less than 450 mg/dLCheck Serum Potassium level 2 hours after oral potassium replacement completed or 30 min after intravenous potassium replacement.[id number] 00:09:00 Test Item Value Reference Range Comments PHOSPHORUS (BEAKER) (test hqsi=652) 1.9 mg/dL 2.3-4.7 PRN - repeat glucose levels every 1 hour or as specified by insulin titration orders until glucose level is less than 450 mg/dLCheck Serum Potassium level 2 hours after oral potassium replacement completed or 30 min after intravenous potassium replacement.[id number] 00:09:00 Test Item Value Reference Range Comments GLUCOSE RANDOM (BEAKER) (test gibv=314) 155 mg/dL 70-105 PRN - repeat glucose levels every 1 hour or as specified by insulin titration orders until glucose level is less than 450 mg/dLCheck Serum Potassium level 2 hours after oral potassium replacement completed or 30 min after intravenous potassium replacement.BASIC METABOLIC [id number] 00:09:00 Test Item Value Reference Range Comments SODIUM (BEAKER) (test 142 meq/L 136-145 qviy=382) POTASSIUM (BEAKER) (test 3.8 meq/L 3.5-5.1 ipky=585) CHLORIDE (BEAKER) (test 105 meq/L 98-107 wbrt=358) CO2 (BEAKER) (test 30 meq/L 22-29 zsqc=565) BLOOD UREA NITROGEN 37 mg/dL 7-21 (BEAKER) (test eawc=132) CREATININE (BEAKER) (test 1.80 mg/dL 0.57-1.25 rflk=019) GLUCOSE RANDOM (BEAKER) 155 mg/dL 70-105 (test qjce=463) CALCIUM (BEAKER) (test 8.8 mg/dL 8.4-10.2 iiof=481) EGFR (BEAKER) (test 34 mL/min/1.73 sq m ESTIMATED GFR IS NOT awnn=9353) ACCURATE CREATININE CLEARANCE IN PREDICTING GLOMERULAR FILTRATION RATE. ESTIMATED GFR IS NOT APPLICABLE FOR DIALYSIS PATIENTS. PRN - repeat glucose levels every 1 hour or as specified by insulin titration orders until glucose level is less than 450 mg/dLCheck Serum Potassium level 2 hours after oral potassium replacement completed or 30 min after intravenous potassium replacement.[id number] 00:06:00 Test Item Value Reference Range Comments PARTIAL THROMBOPLASTIN TIME (BEAKER) (test 62.0 seconds 22.5-36.0 erzs=709) BLOOD GAS, [id number] 20:39:00 Test Item Value Reference Range Comments PH ARTERIAL (BEAKER) (test shjs=926) 7.45 7.35-7.45 PCO2 ARTERIAL (BEAKER) (test uqam=759) 46 mmHg 35-45 PO2 ARTERIAL (BEAKER) (test rzfx=625) 64 mmHg 80-90 O2 SATURATION ARTERIAL (BEAKER) (test fxbs=384) 92.0 % 96.0-97.0 HCO3 ARTERIAL (BEAKER) (test jxck=159) 31 mmol/L 21-29 BASE EXCESS ARTERIAL (BEAKER) (test lbyd=515) 6.7 mmol/L -2.0-3.0 PATIENT TEMPERATURE (BEAKER) (test ynds=4793) 38.1 C FIO2 (BEAKER) (test oclm=5667) 80.0 % POTASSIUM-STAT [id number] 20:39:00 Test Item Value Reference Range Comments POTASSIUM (BEAKER) (test plsa=543) 3.4 meq/L 3.6-5.5 [id number] 20:16:00 Test Item Value Reference Range Comments FERRITIN (BEAKER) (test etvp=660) 651 ng/mL 5-275 POCT-GLUCOSE [id number] 20:10:00 Test Item Value Reference Range Comments POC-GLUCOSE METER (BEAKER) 180 mg/dL 70-110 TESTED AT [facility] [address] [facility] (test kgkv=0292) [facility] [address] POCT-GLUCOSE [id number] 20:10:00 Test Item Value Reference Range Comments POC-GLUCOSE METER (BEAKER) 197 mg/dL 70-110 TESTED AT [facility] [address] [facility] (test xebd=5578) [facility] [address] [id number] 19:54:00 Test Item Value Reference Range Comments PARTIAL THROMBOPLASTIN TIME (BEAKER) (test 62.4 seconds 22.5-36.0 ymjo=218) [id number] 19:53:00 Test Item Value Reference Range Comments MAGNESIUM (BEAKER) (test knpx=357) 2.2 mg/dL 1.6-2.6 HEPATITIS A ANTIBODY, [id number] 19:25:00 Test Item Value Reference Range Comments HEPATITIS A IGG ANTIBODY (BEAKER) (test isvd=6046) Reactive Nonreactive GLUCOSE-STAT [id number] 19:24:00 Test Item Value Reference Range Comments GLUCOSE RANDOM (BEAKER) (test qmaq=201) 174 mg/dL 70-110 HGB/HCT (H&H) - STAT [id number] 19:24:00 Test Item Value Reference Range Comments HEMOGLOBIN (BEAKER) (test cuvt=691) 10.1 g/dL 12.0-15.0 HEMATOCRIT (BEAKER) (test rrvt=244) 30.0 % 36.0-45.0 POTASSIUM-STAT [id number] 19:24:00 Test Item Value Reference Range Comments POTASSIUM (BEAKER) (test kolh=251) 3.4 meq/L 3.6-5.5 HEPATITIS B CORE ANTIBODY, [id number] 19:21:00 Test Item Value Reference Range Comments HEPATITIS B CORE TOTAL ANTIBODY (BEAKER) (test Nonreactive Nonreactive bwzl=827) HEPATITIS PANEL, [id number] 19:21:00 Test Item Value Reference Range Comments HEPATITIS A IGM ANTIBODY (BEAKER) (test Nonreactive Nonreactive ptkq=299) HEPATITIS B CORE IGM ANTIBODY (BEAKER) (test Nonreactive Nonreactive rtfp=181) HEPATITIS C ANTIBODY (BEAKER) (test rjdt=356) Nonreactive Nonreactive HEPATITIS B SURFACE ANTIGEN (2) (BEAKER) (test Nonreactive Nonreactive kdln=3035) HIV-1 ANTIGEN WITH HIV-1/2 [id number] 19:21:00 Test Item Value Reference Range Comments HIV-1 ANTIGEN WITH HIV 1\T\2 ANTIBODY (2) Nonreactive Nonreactive (BEAKER) (test wluc=6494) BASIC METABOLIC [id number] 18:05:00 Test Item Value Reference Range Comments SODIUM (BEAKER) (test 141 meq/L 136-145 qxmj=136) POTASSIUM (BEAKER) (test 4.0 meq/L 3.5-5.1 xhih=434) CHLORIDE (BEAKER) (test 104 meq/L 98-107 hwjc=135) CO2 (BEAKER) (test 26 meq/L 22-29 ewop=738) BLOOD UREA NITROGEN 41 mg/dL 7-21 (BEAKER) (test iino=346) CREATININE (BEAKER) (test 2.07 mg/dL 0.57-1.25 pbzr=343) GLUCOSE RANDOM (BEAKER) 242 mg/dL 70-105 (test epir=138) CALCIUM (BEAKER) (test 8.9 mg/dL 8.4-10.2 lhwg=120) EGFR (BEAKER) (test 29 mL/min/1.73 sq m ESTIMATED GFR IS NOT pdgb=8163) ACCURATE CREATININE CLEARANCE IN PREDICTING GLOMERULAR FILTRATION RATE. ESTIMATED GFR IS NOT APPLICABLE FOR DIALYSIS PATIENTS. Check Serum Potassium level 2 hours after oral potassium replacement completed or 30 min after intravenous potassium replacement.[id number] 18:02:00 Test Item Value Reference Range Comments POTASSIUM (BEAKER) (test eudr=235) 4.0 meq/L 3.5-5.1 Check Serum Potassium level 2 hours after oral potassium replacement completed or 30 min after intravenous potassium replacement.[id number] 18:02:00 Test Item Value Reference Range Comments MAGNESIUM (BEAKER) (test tqzp=317) 2.2 mg/dL 1.6-2.6 Check Serum Potassium level 2 hours after oral potassium replacement completed or 30 min after intravenous potassium replacement.[id number] 18:02:00 Test Item Value Reference Range Comments PHOSPHORUS (BEAKER) (test xxko=075) 2.1 mg/dL 2.3-4.7 Check Serum Potassium level 2 hours after oral potassium replacement completed or 30 min after intravenous potassium replacement.POCT-GLUCOSE [id number] 17:31:00 Test Item Value Reference Range Comments POC-GLUCOSE METER (BEAKER) 253 mg/dL 70-110 TESTED AT [address] (test ucum=8478) [place] [id number] VITAMIN D, [id number] 17:31:00 Test Item Value Reference Range Comments VITAMIN D 25-OH (BEAKER) (test xpcg=6321) 5.8 ng/mL 6.6-49.9 Effective 01/12/2017: Reference Range ChangeNew: 6.6-49.9 ng/mL Previous: 13.0 -47.8 ng/mLRecommended Vitamin D Target Range: 30.0-40.0 ng/mLPOCT-GLUCOSE [id number] 17:31:00 Test Item Value Reference Range Comments POC-GLUCOSE METER (BEAKER) 269 mg/dL 70-110 TESTED AT [address] (test cxec=3041) [place] [id number] 17:09:00 Test Item Value Reference Range Comments TRANSFERRIN (BEAKER) (test xgxq=765) 166 mg/dL 174-382 [id number] 17:09:00 Test Item Value Reference Range Comments PREALBUMIN (BEAKER) (test fxpb=559) 14 mg/dL 14-45 IRON, [id number] 17:09:00 Test Item Value Reference Range Comments IRON (BEAKER) (test aoap=918) 57 ug/dL 40-160 TROPONIN [id number] 16:59:00 Test Item Value Reference Range Comments TROPONIN I (BEAKER) (test voai=106) 45.70 ng/mL 0.00-0.03 Troponin I (TnI) levels [...] failure, acidosis, acute neurological disease, and persistent tachyarrhythmia.[id number] 16:49:00 Test Item Value Reference Range Comments CREATININE (BEAKER) (test 2.17 mg/dL 0.57-1.25 nuiy=764) EGFR (BEAKER) (test 27 mL/min/1.73 sq m ESTIMATED GFR IS NOT fwij=5589) ACCURATE CREATININE CLEARANCE IN PREDICTING GLOMERULAR FILTRATION RATE. ESTIMATED GFR IS NOT APPLICABLE FOR DIALYSIS PATIENTS. URIC [id number] 16:48:00 Test Item Value Reference Range Comments URIC ACID (BEAKER) (test kfwu=712) 8.2 mg/dL 2.6-7.2 LIPID [id number] 16:48:00 Test Item Value Reference Range Comments TRIGLYCERIDES (BEAKER) (test wovx=288) 122 mg/dL CHOLESTEROL (BEAKER) (test adbw=313) 204 mg/dL HDL CHOLESTEROL (BEAKER) (test obik=077) 85 mg/dL LDL CHOLESTEROL CALCULATED (BEAKER) (test 95 mg/dL bcib=822) Triglyceride Reference Range: Low Risk <150 Borderline 150- 199 High Risk 200-499 Very High Risk >=500Cholesterol Reference Range: Low Risk <200 Borderline 200-239 High Risk > 240HDL Cholesterol Reference Range: Low Risk >=60 High Risk <40LDL Cholesterol Reference Range: Optimal <100 Near Optimal 100-129 Borderline 130-159 High 160-189 Very High >=[id number] 16:48:00 Test Item Value Reference Range Comments AMYLASE (BEAKER) (test twkr=296) 228 U/L 25-125 GAMMA GLUTAMYL TRANSFERASE (GGT)2017-07-21 16:48:00 Test Item Value Reference Range Comments GAMMA GLUTAMYL TRANSFERASE (BEAKER) (test eipq=884) 52 U/L 9-64 RETICULOCYTE [id number] 16:39:00 Test Item Value Reference Range Comments RETICULOCYTE COUNT PCT (BEAKER) (test oequ=999) 3.8 % 0.5-1.7 TROPONIN [id number] 13:49:00 Test Item Value Reference Range Comments TROPONIN I (BEAKER) (test hnaf=769) 43.19 ng/mL 0.00-0.03 Troponin I (TnI) levels [...] acute neurological disease, and persistent tachyarrhythmia.BASIC METABOLIC [id number] 12:22:00 Test Item Value Reference Range Comments SODIUM (BEAKER) (test 141 meq/L 136-145 oldy=482) POTASSIUM (BEAKER) (test 3.9 meq/L 3.5-5.1 ezta=835) CHLORIDE (BEAKER) (test 102 meq/L 98-107 blon=795) CO2 (BEAKER) (test 28 meq/L 22-29 fvpi=531) BLOOD UREA NITROGEN 40 mg/dL 7-21 (BEAKER) (test ugdm=961) CREATININE (BEAKER) (test 2.20 mg/dL 0.57-1.25 inah=269) GLUCOSE RANDOM (BEAKER) 238 mg/dL 70-105 (test oqfd=750) CALCIUM (BEAKER) (test 8.9 mg/dL 8.4-10.2 uutk=618) EGFR (BEAKER) (test 27 mL/min/1.73 sq m ESTIMATED GFR IS NOT rxxc=2554) ACCURATE CREATININE CLEARANCE IN PREDICTING GLOMERULAR FILTRATION RATE. ESTIMATED GFR IS NOT APPLICABLE FOR DIALYSIS PATIENTS. [id number] 12:17:00 Test Item Value Reference Range Comments POTASSIUM (BEAKER) (test yhju=973) 3.9 meq/L 3.5-5.1 [id number] 12:17:00 Test Item Value Reference Range Comments MAGNESIUM (BEAKER) (test rtbi=720) 2.4 mg/dL 1.6-2.6 [id number] 12:17:00 Test Item Value Reference Range Comments PHOSPHORUS (BEAKER) (test ujey=833) 3.7 mg/dL 2.3-4.7 [id number] 12:17:00 Test Item Value Reference Range Comments GLUCOSE RANDOM (BEAKER) (test nnwu=002) 238 mg/dL 70-105 [id number] 12:04:00 Test Item Value Reference Range Comments PARTIAL THROMBOPLASTIN TIME (BEAKER) (test 59.3 seconds 22.5-36.0 usps=584) SPUTUM CULTURE + GRAM [id number] 11:47:00 Test Item Value Reference Range Comments CULTURE (BEAKER) (test <1+ Normal respiratory pascual qheg=1855) present GRAM STAIN RESULT (BEAKER) 1+ WBCs (test ceod=0993) GRAM STAIN RESULT (BEAKER) 0-5 epithelial cells (test zcmq=97171) GRAM STAIN RESULT (BEAKER) No organisms seen (test lvza=34755) HEMOGLOBIN AND [id number] 11:26:00 Test Item Value Reference Range Comments HEMOGLOBIN (BEAKER) (test hnrh=633) 7.9 GM/DL 11.2-15.7 HEMATOCRIT (BEAKER) (test rzkg=917) 26.5 % 34.1-44.9 BLOOD GAS, [id number] 10:43:00 Test Item Value Reference Range Comments PH ARTERIAL (BEAKER) (test wscn=916) 7.42 7.35-7.45 PCO2 ARTERIAL (BEAKER) (test wage=083) 44 mmHg 35-45 PO2 ARTERIAL (BEAKER) (test hokm=158) 51 mmHg 80-90 O2 SATURATION ARTERIAL (BEAKER) (test vqrl=954) 88.2 % 96.0-97.0 HCO3 ARTERIAL (BEAKER) (test ppsp=433) 28 mmol/L 21-29 BASE EXCESS ARTERIAL (BEAKER) (test xqqw=466) 3.2 mmol/L -2.0-3.0 PATIENT TEMPERATURE (BEAKER) (test goti=6311) 36.0 C FIO2 (BEAKER) (test zmpi=1421) 80.0 % URINE [id number] 09:44:00 Test Item Value Reference Range Comments CULTURE (BEAKER) (test urib=7155) No growth BASIC METABOLIC [id number] 06:28:00 Test Item Value Reference Range Comments SODIUM (BEAKER) (test 141 meq/L 136-145 otkf=227) POTASSIUM (BEAKER) (test 4.1 meq/L 3.5-5.1 jeom=515) CHLORIDE (BEAKER) (test 101 meq/L 98-107 xkkl=224) CO2 (BEAKER) (test 29 meq/L 22-29 nrkw=785) BLOOD UREA NITROGEN 40 mg/dL 7-21 (BEAKER) (test uvwd=231) CREATININE (BEAKER) (test 2.46 mg/dL 0.57-1.25 gksl=281) GLUCOSE RANDOM (BEAKER) 236 mg/dL 70-105 (test isiz=385) CALCIUM (BEAKER) (test 8.6 mg/dL 8.4-10.2 tyed=479) EGFR (BEAKER) (test 24 mL/min/1.73 sq m ESTIMATED GFR IS NOT wasp=6813) ACCURATE CREATININE CLEARANCE IN PREDICTING GLOMERULAR FILTRATION RATE. ESTIMATED GFR IS NOT APPLICABLE FOR DIALYSIS PATIENTS. [id number] 06:26:00 Test Item Value Reference Range Comments PHOSPHORUS (BEAKER) (test bwus=551) 4.6 mg/dL 2.3-4.7 POCT-GLUCOSE [id number] 06:05:00 Test Item Value Reference Range Comments POC-GLUCOSE METER (BEAKER) 278 mg/dL 70-110 TESTED AT [address] (test isin=7885) [facility] [address] POCT-GLUCOSE [id number] 06:05:00 Test Item Value Reference Range Comments POC-GLUCOSE METER (BEAKER) 231 mg/dL 70-110 TESTED AT [address] (test smeo=8503) [facility] [address] POCT-GLUCOSE [id number] 06:05:00 Test Item Value Reference Range Comments POC-GLUCOSE METER (BEAKER) 190 mg/dL 70-110 TESTED AT [address] (test ykwz=6463) [place] [id number] 05:56:00 Test Item Value Reference Range Comments PARTIAL THROMBOPLASTIN TIME (BEAKER) (test 72.5 seconds 22.5-36.0 jhcm=635) RAD, CHEST, 1 VIEW, NON [id number] 04:38:00Reason for exam:->respiratory insufficiencyFINAL REPORT CLINICAL INDICATION: Respiratory insufficiency Comparison: 07/20/2017 The cardiomediastinal contours are stable. Central pulmonary vascular prominence and bilateral parenchymal opacities are similar within variation of acquisition technique. There is no pneumothorax. A femoral Impella device is stable in position. Signed: Adelso Sorensen MDReport Verified Date/Time:07/21/2017 04:38:32 Reading Location: [address] Reading Room BASIC METABOLIC [id number] 04:06:00 Test Item Value Reference Range Comments SODIUM (BEAKER) (test 142 meq/L 136-145 vsje=166) POTASSIUM (BEAKER) (test 3.9 meq/L 3.5-5.1 quot=941) CHLORIDE (BEAKER) (test 102 meq/L 98-107 wuhf=495) CO2 (BEAKER) (test 31 meq/L 22-29 hbag=786) BLOOD UREA NITROGEN 40 mg/dL 7-21 (BEAKER) (test rbwm=317) CREATININE (BEAKER) (test 2.37 mg/dL 0.57-1.25 etnx=319) GLUCOSE RANDOM (BEAKER) 206 mg/dL 70-105 (test oful=123) CALCIUM (BEAKER) (test 8.5 mg/dL 8.4-10.2 xcas=079) EGFR (BEAKER) (test 25 mL/min/1.73 sq m ESTIMATED GFR IS NOT cksa=7164) ACCURATE CREATININE CLEARANCE IN PREDICTING GLOMERULAR FILTRATION RATE. ESTIMATED GFR IS NOT APPLICABLE FOR DIALYSIS PATIENTS. BLOOD GAS, [id number] 03:53:00 Test Item Value Reference Range Comments PH ARTERIAL (BEAKER) (test ubhk=619) 7.36 7.35-7.45 PCO2 ARTERIAL (BEAKER) (test zjqh=623) 55 mmHg 35-45 PO2 ARTERIAL (BEAKER) (test brcs=064) 94 mmHg 80-90 O2 SATURATION ARTERIAL (BEAKER) (test wgfw=238) 96.0 % 96.0-97.0 HCO3 ARTERIAL (BEAKER) (test molc=403) 30 mmol/L 21-29 BASE EXCESS ARTERIAL (BEAKER) (test tgpq=535) 4.2 mmol/L -2.0-3.0 PATIENT TEMPERATURE (BEAKER) (test ndyg=7479) 38.8 C FIO2 (BEAKER) (test uejr=1727) 80.0 % CALCIUM, [id number] 03:51:00 Test Item Value Reference Range Comments CALCIUM IONIZED (BEAKER) (test yyer=028) 1.07 mmol/L 1.12-1.27 PH, BLOOD (BEAKER) (test qozc=5537) 7.35 OXYGEN SATURATION, [id number] 03:50:00 Test Item Value Reference Range Comments O2 SATURATION (MEASURED) (BEAKER) (test jgqb=5484) 72.6 % [id number] 03:47:00 Test Item Value Reference Range Comments PHOSPHORUS (BEAKER) (test ypun=084) 4.5 mg/dL 2.3-4.7 [id number] 03:47:00 Test Item Value Reference Range Comments MAGNESIUM (BEAKER) (test mhak=583) 2.1 mg/dL 1.6-2.6 HEPATIC FUNCTION [id number] 03:47:00 Test Item Value Reference Range Comments TOTAL PROTEIN (BEAKER) (test gjjg=509) 6.1 gm/dL 6.0-8.3 ALBUMIN (BEAKER) (test cbut=3662) 3.1 g/dL 3.5-5.0 BILIRUBIN TOTAL (BEAKER) (test qxad=885) 1.4 mg/dL 0.2-1.2 BILIRUBIN DIRECT (BEAKER) (test pscl=695) 0.6 mg/dL 0.1-0.5 ALKALINE PHOSPHATASE (BEAKER) (test pbmo=707) 45 U/L 40-150 AST (SGOT) (BEAKER) (test fsuc=153) 94 U/L 5-34 ALT (SGPT) (BEAKER) (test utsd=670) 48 U/L 6-55 LACTATE DEHYDROGENASE (LDH)2017-07-21 03:47:00 Test Item Value Reference Range Comments LACTATE DEHYDROGENASE (BEAKER) (test ljxq=484) 1470 U/L 125-220 CBC W/PLT COUNT & AUTO [id number] 03:41:00 Test Item Value Reference Range Comments WHITE BLOOD CELL COUNT (BEAKER) (test lavt=295) 14.1 K/ L 3.5-10.5 RED BLOOD CELL COUNT (BEAKER) (test fxqj=894) 2.81 M/ L 3.93-5.22 HEMOGLOBIN (BEAKER) (test pqeu=972) 8.6 GM/DL 11.2-15.7 HEMATOCRIT (BEAKER) (test cjxv=604) 28.2 % 34.1-44.9 MEAN CORPUSCULAR VOLUME (BEAKER) (test hnao=665) 100.4 fL 79.4-94.8 MEAN CORPUSCULAR HEMOGLOBIN (BEAKER) (test 30.6 pg 25.6-32.2 famp=101) MEAN CORPUSCULAR HEMOGLOBIN CONC (BEAKER) (test 30.5 GM/DL 32.2-35.5 zqeg=758) RED CELL DISTRIBUTION WIDTH (BEAKER) (test 13.1 % 11.7-14.4 svwj=433) PLATELET COUNT (BEAKER) (test mrgx=068) 140 K/CU MM 150-450 MEAN PLATELET VOLUME (BEAKER) (test vdxj=958) 11.1 fL 9.4-12.3 NUCLEATED RED BLOOD CELLS (BEAKER) (test 0 /100 WBC 0-0 bxrw=405) NEUTROPHILS RELATIVE PERCENT (BEAKER) (test 86 % qhdy=876) LYMPHOCYTES RELATIVE PERCENT (BEAKER) (test 6 % jkfc=367) MONOCYTES RELATIVE PERCENT (BEAKER) (test 8 % lpxo=305) EOSINOPHILS RELATIVE PERCENT (BEAKER) (test 0 % prxt=087) BASOPHILS RELATIVE PERCENT (BEAKER) (test 0 % tmgo=231) NEUTROPHILS ABSOLUTE COUNT (BEAKER) (test 12.13 K/ L 1.56-6.13 cnto=399) LYMPHOCYTES ABSOLUTE COUNT (BEAKER) (test 0.81 K/ L 1.18-3.74 ktmr=242) MONOCYTES ABSOLUTE COUNT (BEAKER) (test 1.07 K/ L 0.24-0.36 lioe=930) EOSINOPHILS ABSOLUTE COUNT (BEAKER) (test 0.00 K/ L 0.04-0.36 bumd=899) BASOPHILS ABSOLUTE COUNT (BEAKER) (test 0.02 K/ L 0.01-0.08 fdtu=719) IMMATURE GRANULOCYTES-RELATIVE PERCENT (BEAKER) 1 % 0-1 (test qlth=5500) LACTIC ACID, ARTERIAL, WHOLE [id number] 03:39:00 Test Item Value Reference Range Comments LACTATE BLOOD ARTERIAL (2) (BEAKER) (test 0.9 mmol/L 0.5-2.2 pppn=5441) Effective 08/06/2015: Units/Reference Range ChangeNew: 0.5-2.2 mmol/L Previous: 5 -20 mg/[id number] 00:12:00 Test Item Value Reference Range Comments TROPONIN I (BEAKER) (test csku=601) 60.74 ng/mL 0.00-0.03 Troponin I (TnI) levels [...] failure, acidosis, acute neurological disease, and persistent tachyarrhythmia.[id number] 23:42:00 Test Item Value Reference Range Comments PHOSPHORUS (BEAKER) (test ypln=890) 4.9 mg/dL 2.3-4.7 BASIC METABOLIC [id number] 23:42:00 Test Item Value Reference Range Comments SODIUM (BEAKER) (test 141 meq/L 136-145 wjet=233) POTASSIUM (BEAKER) (test 4.2 meq/L 3.5-5.1 yphd=390) CHLORIDE (BEAKER) (test 102 meq/L 98-107 lrci=500) CO2 (BEAKER) (test 29 meq/L 22-29 azym=594) BLOOD UREA NITROGEN 40 mg/dL 7-21 (BEAKER) (test qyss=717) CREATININE (BEAKER) (test 2.36 mg/dL 0.57-1.25 avoi=299) GLUCOSE RANDOM (BEAKER) 200 mg/dL 70-105 (test lgup=624) CALCIUM (BEAKER) (test 8.4 mg/dL 8.4-10.2 bkdl=340) EGFR (BEAKER) (test 25 mL/min/1.73 sq m ESTIMATED GFR IS NOT oftd=6859) ACCURATE CREATININE CLEARANCE IN PREDICTING GLOMERULAR FILTRATION RATE. ESTIMATED GFR IS NOT APPLICABLE FOR DIALYSIS PATIENTS. [id number] 23:39:00 Test Item Value Reference Range Comments PARTIAL THROMBOPLASTIN TIME (BEAKER) (test 78.1 seconds 22.5-36.0 eyts=856) POCT-GLUCOSE [id number] 23:28:00 Test Item Value Reference Range Comments POC-GLUCOSE METER (BEAKER) 250 mg/dL 70-110 TESTED AT [facility] [address] [facility] (test hwbj=4952) [facility] [address] POCT-GLUCOSE [id number] 22:19:00 Test Item Value Reference Range Comments POC-GLUCOSE METER (BEAKER) 202 mg/dL 70-110 TESTED AT [place] [id number] [facility] (test mjjj=6968) [facility] [address] HEPATIC FUNCTION [id number] 21:45:00 Test Item Value Reference Range Comments TOTAL PROTEIN (BEAKER) (test cnpc=396) 5.9 gm/dL 6.0-8.3 ALBUMIN (BEAKER) (test rjom=7257) 3.1 g/dL 3.5-5.0 BILIRUBIN TOTAL (BEAKER) (test waco=202) 1.0 mg/dL 0.2-1.2 BILIRUBIN DIRECT (BEAKER) (test soyx=984) 0.5 mg/dL 0.1-0.5 ALKALINE PHOSPHATASE (BEAKER) (test mjte=994) 46 U/L 40-150 AST (SGOT) (BEAKER) (test akjr=065) 95 U/L 5-34 ALT (SGPT) (BEAKER) (test hhsy=633) 47 U/L 6-55 BASIC METABOLIC [id number] 21:45:00 Test Item Value Reference Range Comments SODIUM (BEAKER) (test 141 meq/L 136-145 maox=092) POTASSIUM (BEAKER) (test 4.0 meq/L 3.5-5.1 jomv=726) CHLORIDE (BEAKER) (test 103 meq/L 98-107 abdy=629) CO2 (BEAKER) (test 27 meq/L 22-29 vftf=730) BLOOD UREA NITROGEN 40 mg/dL 7-21 (BEAKER) (test glfx=066) CREATININE (BEAKER) (test 2.30 mg/dL 0.57-1.25 incy=700) GLUCOSE RANDOM (BEAKER) 192 mg/dL 70-105 (test lrqy=637) CALCIUM (BEAKER) (test 8.4 mg/dL 8.4-10.2 movz=690) EGFR (BEAKER) (test 25 mL/min/1.73 sq m ESTIMATED GFR IS NOT xprk=6903) ACCURATE CREATININE CLEARANCE IN PREDICTING GLOMERULAR FILTRATION RATE. ESTIMATED GFR IS NOT APPLICABLE FOR DIALYSIS PATIENTS. [id number] 21:38:00 Test Item Value Reference Range Comments MAGNESIUM (BEAKER) (test saye=698) 2.1 mg/dL 1.6-2.6 LACTIC ACID, ARTERIAL, WHOLE [id number] 21:32:00 Test Item Value Reference Range Comments LACTATE BLOOD ARTERIAL (2) (BEAKER) (test 0.6 mmol/L 0.5-2.2 qybn=5349) Effective 08/06/2015: Units/Reference Range ChangeNew: 0.5-2.2 mmol/L Previous: 5 -20 mg/dLPOCT-GLUCOSE [id number] 21:21:00 Test Item Value Reference Range Comments POC-GLUCOSE METER (BEAKER) 198 mg/dL 70-110 TESTED AT [address] (test ojcf=3316) [facility] [address] POCT-GLUCOSE [id number] 21:21:00 Test Item Value Reference Range Comments POC-GLUCOSE METER (BEAKER) 155 mg/dL 70-110 TESTED AT [address] (test lpyq=4422) [facility] [address] POCT-GLUCOSE [id number] 21:21:00 Test Item Value Reference Range Comments POC-GLUCOSE METER (BEAKER) 67 mg/dL 70-110 TESTED AT [address] (test pkdx=1532) [facility] [address] BLOOD GAS, [id number] 21:16:00 Test Item Value Reference Range Comments PH ARTERIAL (BEAKER) (test rsmg=782) 7.34 7.35-7.45 PCO2 ARTERIAL (BEAKER) (test izky=778) 56 mmHg 35-45 PO2 ARTERIAL (BEAKER) (test osvv=104) 107 mmHg 80-90 O2 SATURATION ARTERIAL (BEAKER) (test oldu=596) 97.3 % 96.0-97.0 HCO3 ARTERIAL (BEAKER) (test gbbe=612) 29 mmol/L 21-29 BASE EXCESS ARTERIAL (BEAKER) (test vjkp=856) 2.7 mmol/L -2.0-3.0 PATIENT TEMPERATURE (BEAKER) (test eojm=8857) 37.8 C FIO2 (BEAKER) (test qack=5858) 100.0 % GLUCOSE-STAT [id number] 21:16:00 Test Item Value Reference Range Comments GLUCOSE RANDOM (BEAKER) (test owqg=022) 188 mg/dL 70-110 HGB/HCT (H&H) - STAT [id number] 21:16:00 Test Item Value Reference Range Comments HEMOGLOBIN (BEAKER) (test beny=557) 9.9 g/dL 12.0-15.0 HEMATOCRIT (BEAKER) (test bpdl=723) 29.0 % 36.0-45.0 SODIUM NA-STAT [id number] 21:15:00 Test Item Value Reference Range Comments SODIUM (BEAKER) (test pnps=365) 140 meq/L 135-148 POTASSIUM-STAT [id number] 21:15:00 Test Item Value Reference Range Comments POTASSIUM (BEAKER) (test sjgu=467) 3.9 meq/L 3.6-5.5 BLOOD GAS, [id number] 19:44:00 Test Item Value Reference Range Comments PH ARTERIAL (BEAKER) (test yofc=586) 7.34 7.35-7.45 PCO2 ARTERIAL (BEAKER) (test ycpg=713) 31 mmHg 35-45 PO2 ARTERIAL (BEAKER) (test tumu=524) 68 mmHg 80-90 O2 SATURATION ARTERIAL (BEAKER) (test mjyw=769) 92.1 % 96.0-97.0 HCO3 ARTERIAL (BEAKER) (test decu=774) 16 mmol/L 21-29 BASE EXCESS ARTERIAL (BEAKER) (test jkrp=247) -8.7 mmol/L -2.0-3.0 PATIENT TEMPERATURE (BEAKER) (test tzhe=2790) 37.7 C FIO2 (BEAKER) (test cact=7126) 50.0 % POCT-GLUCOSE [id number] 18:30:00 Test Item Value Reference Range Comments POC-GLUCOSE METER (BEAKER) 90 mg/dL 70-110 TESTED AT [facility] [address] [facility] (test cduh=8544) [facility] [address] TROPONIN [id number] 18:05:00 Test Item Value Reference Range Comments TROPONIN I (BEAKER) (test unwq=196) 76.69 ng/mL 0.00-0.03 Troponin I (TnI) levels [...] acute neurological disease, and persistent tachyarrhythmia.BASIC METABOLIC [id number] 17:56:00 Test Item Value Reference Range Comments SODIUM (BEAKER) (test 143 meq/L 136-145 nuve=497) POTASSIUM (BEAKER) (test 3.8 meq/L 3.5-5.1 rkvw=031) CHLORIDE (BEAKER) (test 104 meq/L 98-107 cguj=776) CO2 (BEAKER) (test 29 meq/L 22-29 omcu=070) BLOOD UREA NITROGEN 37 mg/dL 7-21 (BEAKER) (test wjhp=396) CREATININE (BEAKER) (test 2.45 mg/dL 0.57-1.25 ucsq=327) GLUCOSE RANDOM (BEAKER) 107 mg/dL 70-105 (test fvhv=122) CALCIUM (BEAKER) (test 8.6 mg/dL 8.4-10.2 xiag=325) EGFR (BEAKER) (test 24 mL/min/1.73 sq m ESTIMATED GFR IS NOT ltcx=2380) ACCURATE CREATININE CLEARANCE IN PREDICTING GLOMERULAR FILTRATION RATE. ESTIMATED GFR IS NOT APPLICABLE FOR DIALYSIS PATIENTS. [id number] 17:43:00 Test Item Value Reference Range Comments PHOSPHORUS (BEAKER) (test nbfg=532) 4.8 mg/dL 2.3-4.7 [id number] 17:43:00 Test Item Value Reference Range Comments MAGNESIUM (BEAKER) (test bgmy=192) 2.4 mg/dL 1.6-2.6 [id number] 17:34:00 Test Item Value Reference Range Comments PARTIAL THROMBOPLASTIN TIME (BEAKER) (test 101.4 seconds 22.5-36.0 wuai=186) BLOOD GAS, [id number] 17:23:00 Test Item Value Reference Range Comments PH ARTERIAL (BEAKER) (test emzu=770) 7.36 7.35-7.45 PCO2 ARTERIAL (BEAKER) (test oqaj=927) 60 mmHg 35-45 PO2 ARTERIAL (BEAKER) (test wjjh=540) 82 mmHg 80-90 O2 SATURATION ARTERIAL (BEAKER) (test oznq=528) 95.1 % 96.0-97.0 HCO3 ARTERIAL (BEAKER) (test cijb=400) 33 mmol/L 21-29 BASE EXCESS ARTERIAL (BEAKER) (test ggtu=643) 6.0 mmol/L -2.0-3.0 PATIENT TEMPERATURE (BEAKER) (test nynw=3638) 37.4 C FIO2 (BEAKER) (test bnrp=6558) 70.0 % GLUCOSE-STAT [id number] 17:20:00 Test Item Value Reference Range Comments GLUCOSE RANDOM (BEAKER) (test vliv=897) 106 mg/dL 70-110 POCT-GLUCOSE [id number] 16:32:00 Test Item Value Reference Range Comments POC-GLUCOSE METER (BEAKER) 115 mg/dL 70-110 TESTED AT [address] (test cwto=1496) [facility] [address] VANCOMYCIN LEVEL, [id number] 16:10:00 Test Item Value Reference Range Comments VANCOMYCIN TROUGH (BEAKER) (test xlmp=700) 17.0 ug/mL 10.0-20.0 POCT-GLUCOSE [id number] 15:32:00 Test Item Value Reference Range Comments POC-GLUCOSE METER (BEAKER) 119 mg/dL 70-110 TESTED AT [address] (test byak=4565) [place] [id number] TROPONIN [id number] 13:14:00 Test Item Value Reference Range Comments TROPONIN I (BEAKER) (test phvj=956) 81.57 ng/mL 0.00-0.03 Troponin I (TnI) levels [...] acute neurological disease, and persistent tachyarrhythmia.BASIC METABOLIC [id number] 12:49:00 Test Item Value Reference Range Comments SODIUM (BEAKER) (test 140 meq/L 136-145 szex=063) POTASSIUM (BEAKER) (test 3.6 meq/L 3.5-5.1 Specimen slightly flob=323) hemolyzed CHLORIDE (BEAKER) (test 104 meq/L 98-107 shxi=601) CO2 (BEAKER) (test 27 meq/L 22-29 qvuh=757) BLOOD UREA NITROGEN 37 mg/dL 7-21 (BEAKER) (test gyxm=013) CREATININE (BEAKER) (test 2.35 mg/dL 0.57-1.25 Specimen slightly rhvz=959) hemolyzed GLUCOSE RANDOM (BEAKER) 192 mg/dL 70-105 (test llnt=322) CALCIUM (BEAKER) (test 8.1 mg/dL 8.4-10.2 hwxl=710) EGFR (BEAKER) (test 25 mL/min/1.73 sq m ESTIMATED GFR IS NOT qhns=2724) ACCURATE CREATININE CLEARANCE IN PREDICTING GLOMERULAR FILTRATION RATE. ESTIMATED GFR IS NOT APPLICABLE FOR DIALYSIS PATIENTS. [id number] 12:46:00 Test Item Value Reference Range Comments MAGNESIUM (BEAKER) (test 2.2 mg/dL 1.6-2.6 Specimen slightly hemolyzed pqnp=536) [id number] 12:46:00 Test Item Value Reference Range Comments PHOSPHORUS (BEAKER) (test 4.6 mg/dL 2.3-4.7 Specimen slightly hemolyzed gfyt=766) POCT-GLUCOSE [id number] 12:16:00 Test Item Value Reference Range Comments POC-GLUCOSE METER (BEAKER) 210 mg/dL 70-110 TESTED AT [address] (test qund=5967) [facility] [address] POCT-GLUCOSE [id number] 12:16:00 Test Item Value Reference Range Comments POC-GLUCOSE METER (BEAKER) 247 mg/dL 70-110 TESTED AT [address] (test iyto=5474) [facility] [address] POCT-GLUCOSE [id number] 12:16:00 Test Item Value Reference Range Comments POC-GLUCOSE METER (BEAKER) 174 mg/dL 70-110 TESTED AT [address] (test ivvq=5779) [facility] [address] BLOOD GAS, [id number] 12:14:00 Test Item Value Reference Range Comments PH ARTERIAL (BEAKER) (test nodq=897) 7.36 7.35-7.45 PCO2 ARTERIAL (BEAKER) (test uaxq=426) 56 mmHg 35-45 PO2 ARTERIAL (BEAKER) (test eegt=516) 65 mmHg 80-90 O2 SATURATION ARTERIAL (BEAKER) (test dllr=139) 90.4 % 96.0-97.0 HCO3 ARTERIAL (BEAKER) (test clch=504) 31 mmol/L 21-29 BASE EXCESS ARTERIAL (BEAKER) (test qost=196) 4.8 mmol/L -2.0-3.0 PATIENT TEMPERATURE (BEAKER) (test knrz=5507) 38.0 C FIO2 (BEAKER) (test fhpw=4658) 60.0 % [id number] 10:58:00 Test Item Value Reference Range Comments PARTIAL THROMBOPLASTIN TIME (BEAKER) (test 99.0 seconds 22.5-36.0 avxp=524) RAD, CHEST, 1 VIEW, NON [id number] 08:30:00Reason for exam:->r/o pleural effusionShould this be [...] seen. Signed: Yoshi Martinez MDReport Verified Date/Time: 07/20/2017 08:30:52 Reading Location: [facility] Radiology ReadingRoom BLOOD GAS, [id number] 06 :37:00 Test Item Value Reference Range Comments PH ARTERIAL (BEAKER) (test bkdu=896) 7.38 7.35-7.45 PCO2 ARTERIAL (BEAKER) (test cewe=672) 50 mmHg 35-45 PO2 ARTERIAL (BEAKER) (test wnei=240) 97 mmHg 80-90 O2 SATURATION ARTERIAL (BEAKER) (test kgdp=352) 96.9 % 96.0-97.0 HCO3 ARTERIAL (BEAKER) (test ovdb=629) 28 mmol/L 21-29 BASE EXCESS ARTERIAL (BEAKER) (test jtsz=959) 2.7 mmol/L -2.0-3.0 PATIENT TEMPERATURE (BEAKER) (test sjfy=6136) 37.8 C FIO2 (BEAKER) (test eobd=2427) 40.0 % POCT-GLUCOSE [id number] 06:15:00 Test Item Value Reference Range Comments POC-GLUCOSE METER (BEAKER) 114 mg/dL 70-110 TESTED AT [address] (test fhyr=0785) [facility] [address] POCT-GLUCOSE [id number] 06:15:00 Test Item Value Reference Range Comments POC-GLUCOSE METER (BEAKER) 140 mg/dL 70-110 TESTED AT [address] (test gnsr=2062) [facility] [address] POCT-GLUCOSE [id number] 05:23:00 Test Item Value Reference Range Comments POC-GLUCOSE METER (BEAKER) 77 mg/dL 70-110 TESTED AT [address] (test mkeq=8053) [facility] [address] CALCIUM, [id number] 04:34:00 Test Item Value Reference Range Comments CALCIUM IONIZED (BEAKER) (test otdq=663) 1.14 mmol/L 1.12-1.27 PH, BLOOD (BEAKER) (test zmmm=1360) 7.34 BLOOD GAS, [id number] 04:32:00 Test Item Value Reference Range Comments PH ARTERIAL (BEAKER) (test mswb=498) 7.32 7.35-7.45 PCO2 ARTERIAL (BEAKER) (test attz=330) 60 mmHg 35-45 PO2 ARTERIAL (BEAKER) (test lbvp=247) 92 mmHg 80-90 O2 SATURATION ARTERIAL (BEAKER) (test wpdg=621) 95.9 % 96.0-97.0 HCO3 ARTERIAL (BEAKER) (test vtnp=853) 30 mmol/L 21-29 BASE EXCESS ARTERIAL (BEAKER) (test woje=113) 3.2 mmol/L -2.0-3.0 PATIENT TEMPERATURE (BEAKER) (test bnmv=5958) 37.8 C FIO2 (BEAKER) (test vmzx=8419) 40.0 % COMPREHENSIVE METABOLIC [id number] 04:24:00 Test Item Value Reference Range Comments TOTAL PROTEIN (BEAKER) 6.5 gm/dL 6.0-8.3 (test kbrf=005) ALBUMIN (BEAKER) (test 3.4 g/dL 3.5-5.0 zvni=0513) ALKALINE PHOSPHATASE 47 U/L 40-150 (BEAKER) (test kqhp=816) BILIRUBIN TOTAL (BEAKER) 0.8 mg/dL 0.2-1.2 (test wiek=789) SODIUM (BEAKER) (test 142 meq/L 136-145 cyxo=662) POTASSIUM (BEAKER) (test 3.7 meq/L 3.5-5.1 hcgf=360) CHLORIDE (BEAKER) (test 103 meq/L 98-107 hcth=263) CO2 (BEAKER) (test 29 meq/L 22-29 ewyd=247) BLOOD UREA NITROGEN 34 mg/dL 7-21 (BEAKER) (test osvv=999) CREATININE (BEAKER) (test 2.44 mg/dL 0.57-1.25 ltso=397) GLUCOSE RANDOM (BEAKER) 128 mg/dL 70-105 (test qzpx=624) CALCIUM (BEAKER) (test 8.7 mg/dL 8.4-10.2 fzcv=861) AST (SGOT) (BEAKER) (test 158 U/L 5-34 spxg=929) ALT (SGPT) (BEAKER) (test 63 U/L 6-55 vyug=287) EGFR (BEAKER) (test 24 mL/min/1.73 sq m ESTIMATED GFR IS NOT qsgo=2407) ACCURATE CREATININE CLEARANCE IN PREDICTING GLOMERULAR FILTRATION RATE. ESTIMATED GFR IS NOT APPLICABLE FOR DIALYSIS PATIENTS. BASIC METABOLIC [id number] 04:24:00 Test Item Value Reference Range Comments SODIUM (BEAKER) (test 142 meq/L 136-145 nvfp=913) POTASSIUM (BEAKER) (test 3.7 meq/L 3.5-5.1 ffzv=955) CHLORIDE (BEAKER) (test 103 meq/L 98-107 jlco=829) CO2 (BEAKER) (test 29 meq/L 22-29 iciu=692) BLOOD UREA NITROGEN 34 mg/dL 7-21 (BEAKER) (test biqa=163) CREATININE (BEAKER) (test 2.44 mg/dL 0.57-1.25 oowm=322) GLUCOSE RANDOM (BEAKER) 128 mg/dL 70-105 (test siza=897) CALCIUM (BEAKER) (test 8.7 mg/dL 8.4-10.2 iaoo=090) EGFR (BEAKER) (test 24 mL/min/1.73 sq m ESTIMATED GFR IS NOT gmke=3907) ACCURATE CREATININE CLEARANCE IN PREDICTING GLOMERULAR FILTRATION RATE. ESTIMATED GFR IS NOT APPLICABLE FOR DIALYSIS PATIENTS. [id number] 04:22:00 Test Item Value Reference Range Comments PHOSPHORUS (BEAKER) (test culq=564) 5.2 mg/dL 2.3-4.7 [id number] 04:22:00 Test Item Value Reference Range Comments MAGNESIUM (BEAKER) (test kvkf=410) 2.4 mg/dL 1.6-2.6 HEPATIC FUNCTION [id number] 04:22:00 Test Item Value Reference Range Comments TOTAL PROTEIN (BEAKER) (test byxm=104) 6.5 gm/dL 6.0-8.3 ALBUMIN (BEAKER) (test rldd=9120) 3.4 g/dL 3.5-5.0 BILIRUBIN TOTAL (BEAKER) (test vire=935) 0.8 mg/dL 0.2-1.2 BILIRUBIN DIRECT (BEAKER) (test aruu=498) 0.4 mg/dL 0.1-0.5 ALKALINE PHOSPHATASE (BEAKER) (test agiy=151) 47 U/L 40-150 AST (SGOT) (BEAKER) (test aypt=440) 158 U/L 5-34 ALT (SGPT) (BEAKER) (test cxyk=558) 63 U/L 6-55 [id number] 04:12:00 Test Item Value Reference Range Comments PARTIAL THROMBOPLASTIN TIME (BEAKER) (test 36.8 seconds 22.5-36.0 unrr=421) Prior to initiating heparinPOCT-GLUCOSE [id number] 04:05:00 Test Item Value Reference Range Comments POC-GLUCOSE METER (BEAKER) 134 mg/dL 70-110 TESTED AT [facility] [address] [facility] (test ybki=2735) [facility] [address] POCT-GLUCOSE [id number] 04:05:00 Test Item Value Reference Range Comments POC-GLUCOSE METER (BEAKER) 122 mg/dL 70-110 TESTED AT [facility] [address] [facility] (test nyfg=5267) [facility] [address] POCT-GLUCOSE [id number] 04:05:00 Test Item Value Reference Range Comments POC-GLUCOSE METER (BEAKER) 201 mg/dL 70-110 TESTED AT [facility] [address] [facility] (test dnny=5570) [facility] [address] CBC W/PLT COUNT & AUTO [id number] 04:02:00 Test Item Value Reference Range Comments WHITE BLOOD CELL COUNT (BEAKER) (test fsdy=498) 13.6 K/ L 3.5-10.5 RED BLOOD CELL COUNT (BEAKER) (test zfzn=096) 3.18 M/ L 3.93-5.22 HEMOGLOBIN (BEAKER) (test qumo=978) 9.7 GM/DL 11.2-15.7 HEMATOCRIT (BEAKER) (test eouc=074) 31.0 % 34.1-44.9 MEAN CORPUSCULAR VOLUME (BEAKER) (test pycz=300) 97.5 fL 79.4-94.8 MEAN CORPUSCULAR HEMOGLOBIN (BEAKER) (test 30.5 pg 25.6-32.2 yumn=907) MEAN CORPUSCULAR HEMOGLOBIN CONC (BEAKER) (test 31.3 GM/DL 32.2-35.5 sfpe=433) RED CELL DISTRIBUTION WIDTH (BEAKER) (test 13.3 % 11.7-14.4 puzg=281) PLATELET COUNT (BEAKER) (test txln=157) 167 K/CU MM 150-450 MEAN PLATELET VOLUME (BEAKER) (test hdqh=704) 11.0 fL 9.4-12.3 NUCLEATED RED BLOOD CELLS (BEAKER) (test 0 /100 WBC 0-0 godf=659) NEUTROPHILS RELATIVE PERCENT (BEAKER) (test 85 % lyyd=018) LYMPHOCYTES RELATIVE PERCENT (BEAKER) (test 7 % pnrz=475) MONOCYTES RELATIVE PERCENT (BEAKER) (test 7 % alsp=089) EOSINOPHILS RELATIVE PERCENT (BEAKER) (test 0 % awzm=250) BASOPHILS RELATIVE PERCENT (BEAKER) (test 0 % ahqy=954) NEUTROPHILS ABSOLUTE COUNT (BEAKER) (test 11.61 K/ L 1.56-6.13 txwo=734) LYMPHOCYTES ABSOLUTE COUNT (BEAKER) (test 0.98 K/ L 1.18-3.74 uwwy=928) MONOCYTES ABSOLUTE COUNT (BEAKER) (test 0.92 K/ L 0.24-0.36 chgy=597) EOSINOPHILS ABSOLUTE COUNT (BEAKER) (test 0.00 K/ L 0.04-0.36 raob=600) BASOPHILS ABSOLUTE COUNT (BEAKER) (test 0.02 K/ L 0.01-0.08 pkia=126) IMMATURE GRANULOCYTES-RELATIVE PERCENT (BEAKER) 1 % 0-1 (test zqtu=0730) [id number] 02:01:00 Test Item Value Reference Range Comments PARTIAL THROMBOPLASTIN TIME (BEAKER) (test 32.5 seconds 22.5-36.0 ijjb=922) BLOOD GAS, [id number] 01:09:00 Test Item Value Reference Range Comments PH ARTERIAL (BEAKER) (test ciii=819) 7.35 7.35-7.45 PCO2 ARTERIAL (BEAKER) (test yzmh=288) 50 mmHg 35-45 PO2 ARTERIAL (BEAKER) (test aqtp=975) 86 mmHg 80-90 O2 SATURATION ARTERIAL (BEAKER) (test tdzs=751) 95.3 % 96.0-97.0 HCO3 ARTERIAL (BEAKER) (test qvby=992) 27 mmol/L 21-29 BASE EXCESS ARTERIAL (BEAKER) (test plvu=842) 1.0 mmol/L -2.0-3.0 PATIENT TEMPERATURE (BEAKER) (test wtku=7187) 38.2 C FIO2 (BEAKER) (test fyfo=8706) 40.0 % POCT-GLUCOSE [id number] 01:04:00 Test Item Value Reference Range Comments POC-GLUCOSE METER (BEAKER) 199 mg/dL 70-110 TESTED AT [facility] [address] [facility] (test sqgp=5166) [facility] [address] [id number] 00:14:00 Test Item Value Reference Range Comments MAGNESIUM (BEAKER) (test 2.3 mg/dL 1.6-2.6 Specimen slightly hemolyzed fncw=374) [id number] 00:14:00 Test Item Value Reference Range Comments POTASSIUM (BEAKER) (test 3.8 meq/L 3.5-5.1 Specimen slightly hemolyzed rvsk=445) CALCIUM, [id number] 00:11:00 Test Item Value Reference Range Comments CALCIUM IONIZED (BEAKER) (test zhlv=776) 1.06 mmol/L 1.12-1.27 PH, BLOOD (BEAKER) (test cryj=6877) 7.35 BLOOD GAS, [id number] 00:11:00 Test Item Value Reference Range Comments PH ARTERIAL (BEAKER) (test zobo=737) 7.33 7.35-7.45 PCO2 ARTERIAL (BEAKER) (test wezf=619) 53 mmHg 35-45 PO2 ARTERIAL (BEAKER) (test vbty=102) 58 mmHg 80-90 O2 SATURATION ARTERIAL (BEAKER) (test aoai=884) 86.1 % 96.0-97.0 HCO3 ARTERIAL (BEAKER) (test bakq=100) 27 mmol/L 21-29 BASE EXCESS ARTERIAL (BEAKER) (test cusy=766) 0.9 mmol/L -2.0-3.0 PATIENT TEMPERATURE (BEAKER) (test aetd=5662) 38.0 C FIO2 (BEAKER) (test ylft=1060) 40.0 % Post extubation ABGPOCT-GLUCOSE [id number] 23:58:00 Test Item Value Reference Range Comments POC-GLUCOSE METER (BEAKER) 202 mg/dL 70-110 TESTED AT [address] (test akpf=6041) [place] [address] POCT-GLUCOSE [id number] 23:58:00 Test Item Value Reference Range Comments POC-GLUCOSE METER (BEAKER) 86 mg/dL 70-110 TESTED AT [address] (test auvw=0291) [place] [id number] BASIC METABOLIC [id number] 22:18:00 Test Item Value Reference Range Comments SODIUM (BEAKER) (test 141 meq/L 136-145 jkqm=732) POTASSIUM (BEAKER) (test 3.6 meq/L 3.5-5.1 Specimen slightly exfe=226) hemolyzed CHLORIDE (BEAKER) (test 105 meq/L 98-107 whlm=282) CO2 (BEAKER) (test 26 meq/L 22-29 oddh=021) BLOOD UREA NITROGEN 31 mg/dL 7-21 (BEAKER) (test ukbx=185) CREATININE (BEAKER) (test 2.09 mg/dL 0.57-1.25 Specimen slightly kjvi=082) hemolyzed GLUCOSE RANDOM (BEAKER) 81 mg/dL 70-105 (test jrlj=500) CALCIUM (BEAKER) (test 8.3 mg/dL 8.4-10.2 sdan=800) EGFR (BEAKER) (test 28 mL/min/1.73 sq m ESTIMATED GFR IS NOT dybr=5966) ACCURATE CREATININE CLEARANCE IN PREDICTING GLOMERULAR FILTRATION RATE. ESTIMATED GFR IS NOT APPLICABLE FOR DIALYSIS PATIENTS. [id number] 22:17:00 Test Item Value Reference Range Comments PHOSPHORUS (BEAKER) (test 5.1 mg/dL 2.3-4.7 Specimen slightly hemolyzed uuco=082) POCT-GLUCOSE [id number] 20:57:00 Test Item Value Reference Range Comments POC-GLUCOSE METER (BEAKER) 90 mg/dL 70-110 TESTED AT [facility] [address] [facility] (test xxml=4738) [facility] [address] BLOOD GAS, [id number] 20:52:00 Test Item Value Reference Range Comments PH ARTERIAL (BEAKER) (test jcxq=712) 7.35 7.35-7.45 PCO2 ARTERIAL (BEAKER) (test likf=857) 49 mmHg 35-45 PO2 ARTERIAL (BEAKER) (test hmsj=925) 100 mmHg 80-90 O2 SATURATION ARTERIAL (BEAKER) (test inpm=947) 97.0 % 96.0-97.0 HCO3 ARTERIAL (BEAKER) (test xmbk=791) 26 mmol/L 21-29 BASE EXCESS ARTERIAL (BEAKER) (test yycv=520) 0.3 mmol/L -2.0-3.0 PATIENT TEMPERATURE (BEAKER) (test cqgg=2403) 37.7 C FIO2 (BEAKER) (test fjhs=7103) 40.0 % [id number] 18:57:00 Test Item Value Reference Range Comments PARTIAL THROMBOPLASTIN TIME (BEAKER) (test 70.7 seconds 22.5-36.0 dlyw=712) BLOOD GAS, [id number] 16:52:00 Test Item Value Reference Range Comments PH ARTERIAL (BEAKER) (test tkgy=748) 7.37 7.35-7.45 PCO2 ARTERIAL (BEAKER) (test kswq=990) 47 mmHg 35-45 PO2 ARTERIAL (BEAKER) (test ixum=204) 117 mmHg 80-90 O2 SATURATION ARTERIAL (BEAKER) (test ipdv=416) 98.0 % 96.0-97.0 HCO3 ARTERIAL (BEAKER) (test mrqn=898) 26 mmol/L 21-29 BASE EXCESS ARTERIAL (BEAKER) (test wbvt=700) 0.5 mmol/L -2.0-3.0 PATIENT TEMPERATURE (BEAKER) (test cyhg=6763) 37.7 C FIO2 (BEAKER) (test hnpg=0533) 60.0 % GLUCOSE-STAT [id number] 16:52:00 Test Item Value Reference Range Comments GLUCOSE RANDOM (BEAKER) (test lldc=609) 149 mg/dL 70-110 [id number] 16:22:00 Test Item Value Reference Range Comments PARTIAL THROMBOPLASTIN TIME (BEAKER) (test 197.7 seconds 22.5-36.0 zchf=455) PROTHROMBIN [id number] 16:15:00 Test Item Value Reference Range Comments PROTIME (BEAKER) (test oekx=414) 16.4 seconds 11.7-14.7 INR (BEAKER) (test zhmu=206) 1.3 <=5.9 RECOMMENDED COUMADIN/WARFARIN INR THERAPY RANGESSTANDARD DOSE: 2.0 - 3.0 Includes: PROPHYLAXIS forvenous thrombosis, systemic embolization; TREATMENT for venous thrombosis and/or pulmonary embolus.HIGH RISK: Target INR is 2.5-3.5 for patients with mechanical heart valves.[id number] 16:15:00 Test Item Value Reference Range Comments FIBRINOGEN LEVEL (BEAKER) (test bkcr=903) 303 mg/dl 225-434 [id number] 16:15:00 Test Item Value Reference Range Comments MAGNESIUM (BEAKER) (test 3.0 mg/dL 1.6-2.6 Specimen moderately hemolyzed hjyg=898) [id number] 16:15:00 Test Item Value Reference Range Comments PHOSPHORUS (BEAKER) (test 6.6 mg/dL 2.3-4.7 Specimen moderately hemolyzed qcue=917) BASIC METABOLIC [id number] 16:15:00 Test Item Value Reference Range Comments SODIUM (BEAKER) (test 144 meq/L 136-145 oygf=942) POTASSIUM (BEAKER) (test 4.1 meq/L 3.5-5.1 Specimen moderately axsl=041) hemolyzed CHLORIDE (BEAKER) (test 106 meq/L 98-107 drfe=343) CO2 (BEAKER) (test 27 meq/L 22-29 vcbi=276) BLOOD UREA NITROGEN 30 mg/dL 7-21 (BEAKER) (test jdal=200) CREATININE (BEAKER) (test 1.99 mg/dL 0.57-1.25 Specimen moderately qkyo=212) hemolyzed GLUCOSE RANDOM (BEAKER) 165 mg/dL 70-105 (test fyxi=564) CALCIUM (BEAKER) (test 8.6 mg/dL 8.4-10.2 xbzl=636) EGFR (BEAKER) (test 30 mL/min/1.73 sq m ESTIMATED GFR IS NOT iqsn=8164) ACCURATE CREATININE CLEARANCE IN PREDICTING GLOMERULAR FILTRATION RATE. ESTIMATED GFR IS NOT APPLICABLE FOR DIALYSIS PATIENTS. CBC (HEMOGRAM ONLY)2017-07-19 16:13:00 Test Item Value Reference Range Comments WHITE BLOOD CELL COUNT (BEAKER) (test piiw=214) 14.5 K/ L 3.5-10.5 RED BLOOD CELL COUNT (BEAKER) (test nmxd=824) 3.55 M/ L 3.93-5.22 HEMOGLOBIN (BEAKER) (test sqee=750) 10.7 GM/DL 11.2-15.7 HEMATOCRIT (BEAKER) (test cnys=915) 34.9 % 34.1-44.9 MEAN CORPUSCULAR VOLUME (BEAKER) (test twit=142) 98.3 fL 79.4-94.8 MEAN CORPUSCULAR HEMOGLOBIN (BEAKER) (test 30.1 pg 25.6-32.2 pjnq=025) MEAN CORPUSCULAR HEMOGLOBIN CONC (BEAKER) (test 30.7 GM/DL 32.2-35.5 rlrn=637) RED CELL DISTRIBUTION WIDTH (BEAKER) (test 13.3 % 11.7-14.4 kezx=574) PLATELET COUNT (BEAKER) (test psob=190) 235 K/CU MM 150-450 MEAN PLATELET VOLUME (BEAKER) (test decf=232) 11.0 fL 9.4-12.3 NUCLEATED RED BLOOD CELLS (BEAKER) (test 0 /100 WBC 0-0 fxho=445) LACTIC ACID, ARTERIAL, WHOLE [id number] 16:12:00 Test Item Value Reference Range Comments LACTATE BLOOD ARTERIAL (2) 2.0 mmol/L 0.5-2.2 Specimen slightly hemolyzed (BEAKER) (test gkay=2275) Effective 08/06/2015: Units/Reference Range ChangeNew: 0.5-2.2 mmol/L Previous: 5 -20 mg/dLCALCIUM, [id number] 15:54:00 Test Item Value Reference Range Comments CALCIUM IONIZED (BEAKER) (test talp=415) 1.14 mmol/L 1.12-1.27 PH, BLOOD (BEAKER) (test wspy=1049) 7.24 SODIUM NA-STAT [id number] 15:54:00 Test Item Value Reference Range Comments SODIUM (BEAKER) (test fufb=875) 143 meq/L 135-148 POTASSIUM-STAT [id number] 15:54:00 Test Item Value Reference Range Comments POTASSIUM (BEAKER) (test soos=620) 3.9 meq/L 3.6-5.5 BLOOD GAS, [id number] 15:54:00 Test Item Value Reference Range Comments PH ARTERIAL (BEAKER) (test cpfg=978) 7.26 7.35-7.45 PCO2 ARTERIAL (BEAKER) (test dwvn=363) 69 mmHg 35-45 PO2 ARTERIAL (BEAKER) (test ckpc=177) 74 mmHg 80-90 O2 SATURATION ARTERIAL (BEAKER) (test wnfq=029) 93.4 % 96.0-97.0 HCO3 ARTERIAL (BEAKER) (test ndfp=869) 31 mmol/L 21-29 BASE EXCESS ARTERIAL (BEAKER) (test gclt=779) 2.0 mmol/L -2.0-3.0 PATIENT TEMPERATURE (BEAKER) (test upco=1979) 35.6 C FIO2 (BEAKER) (test lbwh=7449) 50.0 % GLUCOSE-STAT [id number] 15:54:00 Test Item Value Reference Range Comments GLUCOSE RANDOM (BEAKER) (test tged=810) 169 mg/dL 70-110 HGB/HCT (H&H) - STAT [id number] 15:54:00 Test Item Value Reference Range Comments HEMOGLOBIN (STEVAN) (test rzxj=675) 11.7 g/dL 12.0-15.0 HEMATOCRIT (STEVAN) (test chon=667) 34.0 % 36.0-45.0 RAD, CHEST, 1 VIEW, NON [id number] 15:49:00Reason for exam:->sp PCI/ intubatedFINAL REPORT TECHNIQUE: [...] MDReport Verified Date/Time: 07/19/2017 15:49:37 Reading Location: [facility] RadiologyReading Room [id number] 14:13:00 Test Item Value Reference Range Comments ACTIVATED CLOTTING TIME 131 sec TESTED AT [facility] [address] (STEVAN) (test rnui=660) [facility] [address] TROPONIN [id number] 12:32:00 Test Item Value Reference Range Comments TROPONIN I (STEVAN) (test vqxs=174) 119.79 ng/mL 0.00-0.03 Troponin I (TnI) levels [...] and persistent tachyarrhythmia.CREATINE KINASE (CK), TOTAL AND [id number] 12:26:00 Test Item Value Reference Range Comments CREATINE KINASE TOTAL (STEVAN) (test zckc=859) 2405 U/L 29-200 CREATINE KINASE-MB (DAMASOAKER) (test pprr=892) 65.6 ng/mL 0.0-6.6 CREATINE KINASE-MB INDEX (BEAKER) (test ndzf=546) 2.7 % CK-MB Reference Range:<6.7 Normal6.7-10.0 Borderline>10.0 AbnormalPOCT-GLUCOSE [id number] 12:20:00 Test Item Value Reference Range Comments POC-GLUCOSE METER (BEAKER) 183 mg/dL 70-110 TESTED AT [address] (test dxbz=4159) [facility] [address] [id number] 12:03:00 Test Item Value Reference Range Comments MAGNESIUM (BEAKER) (test lxmz=182) 2.8 mg/dL 1.6-2.6 [id number] 12:03:00 Test Item Value Reference Range Comments PHOSPHORUS (BEAKER) (test flnm=393) 5.3 mg/dL 2.3-4.7 BASIC METABOLIC [id number] 12:03:00 Test Item Value Reference Range Comments SODIUM (BEAKER) (test 143 meq/L 136-145 sghv=173) POTASSIUM (BEAKER) (test 3.8 meq/L 3.5-5.1 tzvn=247) CHLORIDE (BEAKER) (test 106 meq/L 98-107 peex=485) CO2 (BEAKER) (test 27 meq/L 22-29 icty=943) BLOOD UREA NITROGEN 29 mg/dL 7-21 (BEAKER) (test kytx=545) CREATININE (BEAKER) (test 1.92 mg/dL 0.57-1.25 ecvk=818) GLUCOSE RANDOM (BEAKER) 188 mg/dL 70-105 (test ahbo=669) CALCIUM (BEAKER) (test 8.7 mg/dL 8.4-10.2 wkav=664) EGFR (BEAKER) (test 31 mL/min/1.73 sq m ESTIMATED GFR IS NOT wpbd=0172) ACCURATE CREATININE CLEARANCE IN PREDICTING GLOMERULAR FILTRATION RATE. ESTIMATED GFR IS NOT APPLICABLE FOR DIALYSIS PATIENTS. POCT-GLUCOSE [id number] 11:19:00 Test Item Value Reference Range Comments POC-GLUCOSE METER (BEAKER) 190 mg/dL 70-110 TESTED AT [place] [id number] [facility] (test xyyr=2457) [facility] [address] POCT-GLUCOSE [id number] 10:12:00 Test Item Value Reference Range Comments POC-GLUCOSE METER (BEAKER) 197 mg/dL 70-110 TESTED AT [address] (test nxyy=9002) [facility] [address] POCT-GLUCOSE [id number] 09:21:00 Test Item Value Reference Range Comments POC-GLUCOSE METER (BEAKER) 221 mg/dL 70-110 TESTED AT [address] (test wzqq=6106) [place] [address] LACTIC ACID, ARTERIAL, WHOLE [id number] 09:19:00 Test Item Value Reference Range Comments LACTATE BLOOD ARTERIAL (2) (BEAKER) (test 2.4 mmol/L 0.5-2.2 aium=5072) Effective 08/06/2015: Units/Reference Range ChangeNew: 0.5-2.2 mmol/L Previous: 5 -20 mg/dLPROTHROMBIN [id number] 08:44:00 Test Item Value Reference Range Comments PROTIME (BEAKER) (test pedo=532) 14.4 seconds 11.7-14.7 INR (BEAKER) (test hcpd=901) 1.1 <=5.9 RECOMMENDED COUMADIN/WARFARIN INR THERAPY RANGESSTANDARD DOSE: 2.0 - 3.0 Includes: PROPHYLAXIS forvenous thrombosis, systemic embolization; TREATMENT for venous thrombosis and/or pulmonary embolus.HIGH RISK: Target INR is 2.5-3.5 for patients with mechanical heart valves.[id number] 08:44:00 Test Item Value Reference Range Comments FIBRINOGEN LEVEL (BEAKER) (test fmlz=870) 367 mg/dl 225-434 [id number] 08:44:00 Test Item Value Reference Range Comments PARTIAL THROMBOPLASTIN TIME (BEAKER) (test 30.0 seconds 22.5-36.0 jwzt=347) POCT-GLUCOSE [id number] 07:52:00 Test Item Value Reference Range Comments POC-GLUCOSE METER (BEAKER) 215 mg/dL 70-110 TESTED AT [address] (test vlyo=4420) [place] [id number] CT, CHEST, WITHOUT [id number] 07:50:00KEEP PATIENT ON CT TABLE. CALL RADIOLOGIST [...] [facility] Diagnostic Imaging Reading Room - [place] [address] Electronically signed by: LYNNETTE CASTRO MD on 07:50 AMPOCT-GLUCOSE [id number] 07:37:00 Test Item Value Reference Range Comments POC-GLUCOSE METER (BEAKER) 225 mg/dL 70-110 [address] (test xfur=2786) [facility] [address] RAD, CHEST, 1 VIEW, NON [id number] 04:04:00Reason for exam:->v tach/ iabpShould this be [...] at the time of this dictation. Signed: Hsamukh Silvestre MDReport Verified Date/Time: 07/19/2017 04:04:19 Reading Location: [address] Ortho Consult Reading Room [id number] 03:59:00 Test Item Value Reference Range Comments PHOSPHORUS (BEAKER) (test zuhb=760) 4.4 mg/dL 2.3-4.7 [id number] 03:59:00 Test Item Value Reference Range Comments MAGNESIUM (BEAKER) (test xpqw=529) 2.5 mg/dL 1.6-2.6 BASIC METABOLIC [id number] 03:59:00 Test Item Value Reference Range Comments SODIUM (BEAKER) (test 145 meq/L 136-145 vpcv=626) POTASSIUM (BEAKER) (test 3.6 meq/L 3.5-5.1 jiho=867) CHLORIDE (BEAKER) (test 106 meq/L 98-107 oxxv=160) CO2 (BEAKER) (test 25 meq/L 22-29 npjj=195) BLOOD UREA NITROGEN 28 mg/dL 7-21 (BEAKER) (test ssno=646) CREATININE (BEAKER) (test 1.93 mg/dL 0.57-1.25 qinn=989) GLUCOSE RANDOM (BEAKER) 216 mg/dL 70-105 (test izto=068) CALCIUM (BEAKER) (test 9.0 mg/dL 8.4-10.2 fxht=984) EGFR (BEAKER) (test 31 mL/min/1.73 sq m ESTIMATED GFR IS NOT abca=3386) ACCURATE CREATININE CLEARANCE IN PREDICTING GLOMERULAR FILTRATION RATE. ESTIMATED GFR IS NOT APPLICABLE FOR DIALYSIS PATIENTS. B-TYPE NATRIURETIC FACTOR (BNP)2017-07-19 03:10:00 Test Item Value Reference Range Comments B-TYPE NATRIURETIC PEPTIDE (BEAKER) (test 2662 pg/mL 0-100 wstk=518) HEPATIC FUNCTION [id number] 03:04:00 Test Item Value Reference Range Comments TOTAL PROTEIN (BEAKER) (test nglj=822) 6.6 gm/dL 6.0-8.3 ALBUMIN (BEAKER) (test eiuo=5157) 3.5 g/dL 3.5-5.0 BILIRUBIN TOTAL (BEAKER) (test ruuh=599) 0.4 mg/dL 0.2-1.2 BILIRUBIN DIRECT (BEAKER) (test dgej=867) 0.2 mg/dL 0.1-0.5 ALKALINE PHOSPHATASE (BEAKER) (test dwnf=957) 57 U/L 40-150 AST (SGOT) (BEAKER) (test szwb=406) 359 U/L 5-34 ALT (SGPT) (BEAKER) (test zwnk=684) 99 U/L 6-55 CREATINE KINASE (CK)2017-07-19 03:04:00 Test Item Value Reference Range Comments CREATINE KINASE TOTAL (BEAKER) (test hqbq=445) 2888 U/L 29-200 CBC W/PLT COUNT & AUTO [id number] 02:56:00 Test Item Value Reference Range Comments WHITE BLOOD CELL COUNT (BEAKER) (test pfgv=771) 19.0 K/ L 3.5-10.5 RED BLOOD CELL COUNT (BEAKER) (test ajsd=877) 3.69 M/ L 3.93-5.22 HEMOGLOBIN (BEAKER) (test dkhy=341) 11.2 GM/DL 11.2-15.7 HEMATOCRIT (BEAKER) (test yivk=407) 35.3 % 34.1-44.9 MEAN CORPUSCULAR VOLUME (BEAKER) (test acca=734) 95.7 fL 79.4-94.8 MEAN CORPUSCULAR HEMOGLOBIN (BEAKER) (test 30.4 pg 25.6-32.2 bssd=258) MEAN CORPUSCULAR HEMOGLOBIN CONC (BEAKER) (test 31.7 GM/DL 32.2-35.5 ebrq=330) RED CELL DISTRIBUTION WIDTH (BEAKER) (test 13.1 % 11.7-14.4 qjbg=755) PLATELET COUNT (BEAKER) (test chkm=040) 253 K/CU MM 150-450 MEAN PLATELET VOLUME (BEAKER) (test hfyt=276) 10.0 fL 9.4-12.3 NUCLEATED RED BLOOD CELLS (BEAKER) (test 0 /100 WBC 0-0 kjxz=529) NEUTROPHILS RELATIVE PERCENT (BEAKER) (test 86 % bxig=783) LYMPHOCYTES RELATIVE PERCENT (BEAKER) (test 6 % jkeb=090) MONOCYTES RELATIVE PERCENT (BEAKER) (test 7 % whav=458) EOSINOPHILS RELATIVE PERCENT (BEAKER) (test 0 % qhpu=846) BASOPHILS RELATIVE PERCENT (BEAKER) (test 0 % pxws=452) NEUTROPHILS ABSOLUTE COUNT (BEAKER) (test 16.34 K/ L 1.56-6.13 fprz=296) LYMPHOCYTES ABSOLUTE COUNT (BEAKER) (test 1.15 K/ L 1.18-3.74 jljn=165) MONOCYTES ABSOLUTE COUNT (BEAKER) (test 1.39 K/ L 0.24-0.36 keji=540) EOSINOPHILS ABSOLUTE COUNT (BEAKER) (test 0.00 K/ L 0.04-0.36 bjij=239) BASOPHILS ABSOLUTE COUNT (BEAKER) (test 0.02 K/ L 0.01-0.08 ifsx=150) IMMATURE GRANULOCYTES-RELATIVE PERCENT (BEAKER) 0 % 0-1 (test pblu=7974) CALCIUM, [id number] 02:49:00 Test Item Value Reference Range Comments CALCIUM IONIZED (BEAKER) (test izhi=433) 1.14 mmol/L 1.12-1.27 PH, BLOOD (BEAKER) (test hgds=7132) 7.36 CBC (HEMOGRAM ONLY)2017-07-19 02:48:00 Test Item Value Reference Range Comments WHITE BLOOD CELL COUNT (BEAKER) (test gyyg=901) 19.0 K/ L 3.5-10.5 RED BLOOD CELL COUNT (BEAKER) (test hklo=991) 3.69 M/ L 3.93-5.22 HEMOGLOBIN (BEAKER) (test dqsx=005) 11.2 GM/DL 11.2-15.7 HEMATOCRIT (BEAKER) (test kura=356) 35.3 % 34.1-44.9 MEAN CORPUSCULAR VOLUME (BEAKER) (test ykuv=203) 95.7 fL 79.4-94.8 MEAN CORPUSCULAR HEMOGLOBIN (BEAKER) (test 30.4 pg 25.6-32.2 rwqp=266) MEAN CORPUSCULAR HEMOGLOBIN CONC (BEAKER) (test 31.7 GM/DL 32.2-35.5 ybem=400) RED CELL DISTRIBUTION WIDTH (BEAKER) (test 13.1 % 11.7-14.4 djdp=553) PLATELET COUNT (BEAKER) (test jnqp=727) 253 K/CU MM 150-450 MEAN PLATELET VOLUME (BEAKER) (test emue=896) 10.0 fL 9.4-12.3 NUCLEATED RED BLOOD CELLS (BEAKER) (test 0 /100 WBC 0-0 kaum=492) BLOOD GAS, [id number] 02:48:00 Test Item Value Reference Range Comments PH ARTERIAL (BEAKER) (test vzwt=701) 7.35 7.35-7.45 PCO2 ARTERIAL (BEAKER) (test oshb=667) 55 mmHg 35-45 PO2 ARTERIAL (BEAKER) (test ebdc=558) 73 mmHg 80-90 O2 SATURATION ARTERIAL (BEAKER) (test vvtq=058) 93.3 % 96.0-97.0 HCO3 ARTERIAL (BEAKER) (test stac=139) 30 mmol/L 21-29 BASE EXCESS ARTERIAL (BEAKER) (test lfbz=404) 3.1 mmol/L -2.0-3.0 PATIENT TEMPERATURE (BEAKER) (test xleg=6705) 37.5 C FIO2 (BEAKER) (test ordv=6443) 40.0 % POCT-GLUCOSE [id number] 02:21:00 Test Item Value Reference Range Comments POC-GLUCOSE METER (BEAKER) 184 mg/dL 70-110 TESTED AT [facility] [address] [facility] (test lmxk=8974) [facility] [address] POCT-GLUCOSE [id number] 01:15:00 Test Item Value Reference Range Comments POC-GLUCOSE METER (BEAKER) 173 mg/dL 70-110 TESTED AT [facility] [address] [place] [address] (test poba=2062) [facility] [address] [id number] 00:55:00 Test Item Value Reference Range Comments PHOSPHORUS (BEAKER) (test jsen=485) 3.3 mg/dL 2.3-4.7 [id number] 00:55:00 Test Item Value Reference Range Comments MAGNESIUM (BEAKER) (test fnaj=098) 1.8 mg/dL 1.6-2.6 BASIC METABOLIC [id number] 00:55:00 Test Item Value Reference Range Comments SODIUM (BEAKER) (test 143 meq/L 136-145 cadd=299) POTASSIUM (BEAKER) (test 3.9 meq/L 3.5-5.1 afqj=515) CHLORIDE (BEAKER) (test 106 meq/L 98-107 fite=729) CO2 (BEAKER) (test 27 meq/L 22-29 tvac=811) BLOOD UREA NITROGEN 27 mg/dL 7-21 (BEAKER) (test ahzm=873) CREATININE (BEAKER) (test 1.90 mg/dL 0.57-1.25 eciw=658) GLUCOSE RANDOM (BEAKER) 181 mg/dL 70-105 (test djvf=478) CALCIUM (BEAKER) (test 8.9 mg/dL 8.4-10.2 iupn=867) EGFR (BEAKER) (test 32 mL/min/1.73 sq m ESTIMATED GFR IS NOT sicb=1486) ACCURATE CREATININE CLEARANCE IN PREDICTING GLOMERULAR FILTRATION RATE. ESTIMATED GFR IS NOT APPLICABLE FOR DIALYSIS PATIENTS. POCT-GLUCOSE [id number] 00:11:00 Test Item Value Reference Range Comments POC-GLUCOSE METER (BEAKER) 177 mg/dL 70-110 TESTED AT [place] [id number] [facility] (test lxtk=1580) [facility] [address] POCT-GLUCOSE [id number] 23:25:00 Test Item Value Reference Range Comments POC-GLUCOSE METER (BEAKER) 206 mg/dL 70-110 TESTED AT [address] (test ktit=6902) [facility] [address] POCT-GLUCOSE [id number] 22:19:00 Test Item Value Reference Range Comments POC-GLUCOSE METER (BEAKER) 243 mg/dL 70-110 TESTED AT [address] (test gbzy=3305) [facility] [address] POCT-GLUCOSE [id number] 21:37:00 Test Item Value Reference Range Comments POC-GLUCOSE METER (BEAKER) 235 mg/dL 70-110 TESTED AT [address] (test ynop=5300) [facility] [address] POCT-GLUCOSE [id number] 20:04:00 Test Item Value Reference Range Comments POC-GLUCOSE METER (BEAKER) 216 mg/dL 70-110 TESTED AT [address] (test edie=0552) [facility] [address] POCT-GLUCOSE [id number] 18:40:00 Test Item Value Reference Range Comments POC-GLUCOSE METER (BEAKER) 271 mg/dL 70-110 TESTED AT [address] (test xrbo=1521) [facility] [address] [id number] 18:32:00 Test Item Value Reference Range Comments MAGNESIUM (BEAKER) (test 1.9 mg/dL 1.6-2.6 Specimen slightly hemolyzed zozv=058) [id number] 18:32:00 Test Item Value Reference Range Comments PHOSPHORUS (BEAKER) (test 3.1 mg/dL 2.3-4.7 Specimen slightly hemolyzed aaou=921) BASIC METABOLIC [id number] 18:32:00 Test Item Value Reference Range Comments SODIUM (BEAKER) (test 142 meq/L 136-145 fkgj=628) POTASSIUM (BEAKER) (test 3.9 meq/L 3.5-5.1 Specimen slightly vuak=342) hemolyzed CHLORIDE (BEAKER) (test 107 meq/L 98-107 zeyt=953) CO2 (BEAKER) (test 24 meq/L 22-29 igzr=128) BLOOD UREA NITROGEN 22 mg/dL 7-21 (BEAKER) (test iyzm=400) CREATININE (BEAKER) (test 1.55 mg/dL 0.57-1.25 Specimen slightly ubyx=067) hemolyzed GLUCOSE RANDOM (BEAKER) 242 mg/dL 70-105 (test otsb=055) CALCIUM (BEAKER) (test 8.8 mg/dL 8.4-10.2 osqw=950) EGFR (BEAKER) (test 40 mL/min/1.73 sq m ESTIMATED GFR IS NOT mkrp=7786) ACCURATE CREATININE CLEARANCE IN PREDICTING GLOMERULAR FILTRATION RATE. ESTIMATED GFR IS NOT APPLICABLE FOR DIALYSIS PATIENTS. BLOOD GAS, [id number] 18:24:00 Test Item Value Reference Range Comments PH ARTERIAL (BEAKER) (test nttt=344) 7.34 7.35-7.45 PCO2 ARTERIAL (BEAKER) (test fzvy=612) 51 mmHg 35-45 PO2 ARTERIAL (BEAKER) (test zffi=921) 57 mmHg 80-90 O2 SATURATION ARTERIAL (BEAKER) (test syqs=727) 87.5 % 96.0-97.0 HCO3 ARTERIAL (BEAKER) (test ltvw=225) 27 mmol/L 21-29 BASE EXCESS ARTERIAL (BEAKER) (test vppc=811) 1.0 mmol/L -2.0-3.0 PATIENT TEMPERATURE (BEAKER) (test etvi=0313) 37.2 C FIO2 (BEAKER) (test ftil=1168) 40.0 % POCT-GLUCOSE [id number] 17:14:00 Test Item Value Reference Range Comments POC-GLUCOSE METER (BEAKER) 299 mg/dL 70-110 TESTED AT [place] [address] [address] (test oacx=9782) [facility] [address] LACTIC ACID, ARTERIAL, WHOLE [id number] 16:37:00 Test Item Value Reference Range Comments LACTATE BLOOD ARTERIAL (2) 2.9 mmol/L 0.5-2.2 Specimen slightly hemolyzed (BEAKER) (test ienl=6600) Effective 08/06/2015: Units/Reference Range ChangeNew: 0.5-2.2 mmol/L Previous: 5 -20 mg/[id number] 15:45:00 Test Item Value Reference Range Comments GLUCOSE RANDOM (BEAKER) (test mbxu=914) 439 mg/dL 70-105 If last glucose was less than 500, may do bedside glucose instead of serum glucose.POCT-GLUCOSE [id number] 15:21:00 Test Item Value Reference Range Comments POC-GLUCOSE METER (BEAKER) 374 mg/dL 70-110 Notified PAULA BERGER/TESTED AT [facility] (test qwaa=4958) [address] [place] [address] [id number] 15:14:00 Test Item Value Reference Range Comments POTASSIUM (BEAKER) (test lgsy=635) 4.0 meq/L 3.5-5.1 If last glucose was less than 500, may do bedside glucose instead of serum glucose.URINALYSIS W/ [id number] 15:03:00 Test Item Value Reference Range Comments COLOR (BEAKER) (test flzk=227) Yellow CLARITY (BEAKER) (test eacx=528) Clear SPECIFIC GRAVITY UA (BEAKER) (test sejj=355) 1.050 1.001-1.035 PH UA (BEAKER) (test bext=859) 5.5 5.0-8.0 PROTEIN UA (BEAKER) (test pdca=742) 50 mg/dL Negative GLUCOSE UA (BEAKER) (test lqwu=795) >1000 mg/dL Negative KETONES UA (BEAKER) (test puhl=955) Negative Negative BILIRUBIN UA (BEAKER) (test ekle=120) Negative Negative BLOOD UA (BEAKER) (test euxw=442) Moderate Negative NITRITE UA (BEAKER) (test wruv=466) Negative Negative LEUKOCYTE ESTERASE UA (BEAKER) (test hyes=636) Negative Negative UROBILINOGEN UA (BEAKER) (test ocwl=823) 0.2 mg/dL 0.2-1.0 RBC UA (BEAKER) (test mdsc=897) 16 /HPF WBC UA (BEAKER) (test oqly=971) 11 /HPF BACTERIA (BEAKER) (test zxkh=264) Rare MUCUS (BEAKER) (test iojs=5706) Rare SQUAMOUS EPITHELIAL (BEAKER) (test moyh=267) 1 /HPF SOURCE(BEAKER) (test dkqr=9138) U/S, RENAL, [id number] 14:36:00Reason for exam:->acute renal failure , hydronephrosisShould [...] MDReport Verified Date/Time: 07/18/2017 14:36:40 Reading Location: [address] Ultrasound Reading Room Electronically signed by: VIRGINIA DIAZ M.D. on 02:36 PMT4, [id number] 14:31:00 Test Item Value Reference Range Comments FREE T4 (BEAKER) (test jodh=279) 1.13 ng/dL 0.70-1.48 BLOOD GAS, [id number] 14:01:00 Test Item Value Reference Range Comments PH ARTERIAL (BEAKER) (test vgur=606) 7.42 7.35-7.45 PCO2 ARTERIAL (BEAKER) (test ovqh=513) 42 mmHg 35-45 PO2 ARTERIAL (BEAKER) (test defv=447) 66 mmHg 80-90 O2 SATURATION ARTERIAL (BEAKER) (test tgrn=270) 93.5 % 96.0-97.0 HCO3 ARTERIAL (BEAKER) (test ljyh=156) 27 mmol/L 21-29 BASE EXCESS ARTERIAL (BEAKER) (test msly=710) 2.1 mmol/L -2.0-3.0 PATIENT TEMPERATURE (BEAKER) (test kvzm=2113) 36.9 C FIO2 (BEAKER) (test wxom=6052) 40.0 % HEMOGLOBIN [id number] 13:57:00 Test Item Value Reference Range Comments HEMOGLOBIN A1C (BEAKER) (test fyec=513) 9.8 % 4.3-6.1 SODIUM, RANDOM [id number] 13:49:00 Test Item Value Reference Range Comments SODIUM URINE (BEAKER) (test xgtv=383) 22 meq/L Reference Range: No NormalsTSH/FREE T4 IF [id number] 13:49:00 Test Item Value Reference Range Comments THYROID STIMULATING HORMONE (BEAKER) (test 0.27 uIU/mL 0.35-4.94 tsig=631) POCT-GLUCOSE [id number] 13:47:00 Test Item Value Reference Range Comments POC-GLUCOSE METER (BEAKER) 398 mg/dL 70-110 TESTED AT [facility] [address] (test sloc=6033) [place] [address] CREATININE, RANDOM [id number] 13:43:00 Test Item Value Reference Range Comments CREATININE URINE (BEAKER) (test ianu=044) 85.4 mg/dL Reference Range: No NormalsPROTEIN, RANDOM [id number] 13:43:00 Test Item Value Reference Range Comments PROTEIN, URINE (BEAKER) (test pzfh=4007) 75 mg/dL 0-14 B-TYPE NATRIURETIC FACTOR (BNP)2017-07-18 13:17:00 Test Item Value Reference Range Comments B-TYPE NATRIURETIC PEPTIDE (BEAKER) (test 1847 pg/mL 0-100 cpzf=778) BASIC METABOLIC [id number] 13:13:00 Test Item Value Reference Range Comments SODIUM (BEAKER) (test 138 meq/L 136-145 skhz=938) POTASSIUM (BEAKER) (test 4.8 meq/L 3.5-5.1 ptok=860) CHLORIDE (BEAKER) (test 101 meq/L 98-107 wojy=069) CO2 (BEAKER) (test 26 meq/L 22-29 mpoc=428) BLOOD UREA NITROGEN 21 mg/dL 7-21 (BEAKER) (test kycp=111) CREATININE (BEAKER) (test 1.62 mg/dL 0.57-1.25 ojei=894) GLUCOSE RANDOM (BEAKER) 527 mg/dL 70-105 (test qzdr=528) CALCIUM (BEAKER) (test 8.9 mg/dL 8.4-10.2 ghvu=127) EGFR (BEAKER) (test 38 mL/min/1.73 sq m ESTIMATED GFR IS NOT kyqn=1852) ACCURATE CREATININE CLEARANCE IN PREDICTING GLOMERULAR FILTRATION RATE. ESTIMATED GFR IS NOT APPLICABLE FOR DIALYSIS PATIENTS. If last glucose was less than 500, may do bedside glucose instead of serum glucose.[id number] 13:12:00 Test Item Value Reference Range Comments MAGNESIUM (BEAKER) (test rcoo=110) 1.9 mg/dL 1.6-2.6 If last glucose was less than 500, may do bedside glucose instead of serum glucose.[id number] 13:12:00 Test Item Value Reference Range Comments LIPASE (BEAKER) (test fcef=143) 106 U/L 8-78 If last glucose was less than 500, may do bedside glucose instead of serum glucose.[id number] 13:11:00 Test Item Value Reference Range Comments PHOSPHORUS (BEAKER) (test wcze=035) 3.3 mg/dL 2.3-4.7 If last glucose was less than 500, may do bedside glucose instead of serum glucose.POCT-GLUCOSE [id number] 12:49:00 Test Item Value Reference Range Comments POC-GLUCOSE METER (BEAKER) 498 mg/dL 70-110 Notified PAULA BEGRER/TESTED AT [facility] (test pqbh=3130) [address] [place] [address] LACTIC ACID, VENOUS, WHOLE [id number] 12:11:00 Test Item Value Reference Range Comments LACTATE BLOOD VENOUS (2) (BEAKER) (test 3.8 mmol/L 0.5-2.2 eyry=3545) Effective 08/06/2015: Units/Reference Range ChangeNew: 0.5-2.2 mmol/L Previous: 5 -20 mg/[id number] 12:10:00 Test Item Value Reference Range Comments PROCALCITONIN (BEAKER) (test lbeb=3850) 3.80 ng/mL <0.05 SEPSIS RISK (ng/mL)Low: 0.05-0.50Intermediate: 0.51-2.00High: & gt;=2.01CBC W/PLT COUNT & AUTO [id number] 12:10:00 Test Item Value Reference Range Comments WHITE BLOOD CELL COUNT (BEAKER) (test xtqn=790) 11.2 K/ L 3.5-10.5 RED BLOOD CELL COUNT (BEAKER) (test toqw=192) 3.98 M/ L 3.93-5.22 HEMOGLOBIN (BEAKER) (test zltd=125) 12.0 GM/DL 11.2-15.7 HEMATOCRIT (BEAKER) (test fckj=589) 38.5 % 34.1-44.9 MEAN CORPUSCULAR VOLUME (BEAKER) (test mgau=404) 96.7 fL 79.4-94.8 MEAN CORPUSCULAR HEMOGLOBIN (BEAKER) (test 30.2 pg 25.6-32.2 vopi=545) MEAN CORPUSCULAR HEMOGLOBIN CONC (BEAKER) (test 31.2 GM/DL 32.2-35.5 rjlv=045) RED CELL DISTRIBUTION WIDTH (BEAKER) (test 13.1 % 11.7-14.4 bvre=515) PLATELET COUNT (BEAKER) (test rjon=190) 222 K/CU MM 150-450 MEAN PLATELET VOLUME (BEAKER) (test galt=641) 10.2 fL 9.4-12.3 NUCLEATED RED BLOOD CELLS (BEAKER) (test 0 /100 WBC 0-0 vxet=583) NEUTROPHILS RELATIVE PERCENT (BEAKER) (test 96 % amuv=787) LYMPHOCYTES RELATIVE PERCENT (BEAKER) (test 2 % sids=373) MONOCYTES RELATIVE PERCENT (BEAKER) (test 2 % cnfl=124) EOSINOPHILS RELATIVE PERCENT (BEAKER) (test 0 % sdhi=868) BASOPHILS RELATIVE PERCENT (BEAKER) (test 0 % iyod=767) NEUTROPHILS ABSOLUTE COUNT (BEAKER) (test 10.72 K/ L 1.56-6.13 kvsr=135) LYMPHOCYTES ABSOLUTE COUNT (BEAKER) (test 0.24 K/ L 1.18-3.74 ozqz=771) MONOCYTES ABSOLUTE COUNT (BEAKER) (test 0.22 K/ L 0.24-0.36 fdob=865) EOSINOPHILS ABSOLUTE COUNT (BEAKER) (test 0.00 K/ L 0.04-0.36 ibwm=875) BASOPHILS ABSOLUTE COUNT (BEAKER) (test 0.01 K/ L 0.01-0.08 siwf=694) IMMATURE GRANULOCYTES-RELATIVE PERCENT (BEAKER) 0 % 0-1 (test ueyi=3372) BASIC METABOLIC [id number] 11:35:00 Test Item Value Reference Range Comments SODIUM (BEAKER) (test 136 meq/L 136-145 fvlw=618) POTASSIUM (BEAKER) (test 4.8 meq/L 3.5-5.1 vzvu=210) CHLORIDE (BEAKER) (test 99 meq/L 98-107 vwch=877) CO2 (BEAKER) (test 25 meq/L 22-29 nstw=775) BLOOD UREA NITROGEN 19 mg/dL 7-21 (BEAKER) (test dmwg=323) CREATININE (BEAKER) (test 1.61 mg/dL 0.57-1.25 ioku=714) GLUCOSE RANDOM (BEAKER) 568 mg/dL 70-105 (test eszj=577) CALCIUM (BEAKER) (test 8.9 mg/dL 8.4-10.2 bvqt=783) EGFR (BEAKER) (test 38 mL/min/1.73 sq m ESTIMATED GFR IS NOT irnu=4045) ACCURATE CREATININE CLEARANCE IN PREDICTING GLOMERULAR FILTRATION RATE. ESTIMATED GFR IS NOT APPLICABLE FOR DIALYSIS PATIENTS. BLOOD GAS, [id number] 10:57:00 Test Item Value Reference Range Comments PH ARTERIAL (BEAKER) (test gnhw=800) 7.36 7.35-7.45 PCO2 ARTERIAL (BEAKER) (test ptpg=207) 47 mmHg 35-45 PO2 ARTERIAL (BEAKER) (test sehq=785) 78 mmHg 80-90 O2 SATURATION ARTERIAL (BEAKER) (test nvtu=645) 95.0 % 96.0-97.0 HCO3 ARTERIAL (BEAKER) (test aclc=044) 26 mmol/L 21-29 BASE EXCESS ARTERIAL (BEAKER) (test jrsz=149) 0.4 mmol/L -2.0-3.0 PATIENT TEMPERATURE (BEAKER) (test rrkt=6969) 37.0 C FIO2 (BEAKER) (test domg=9265) 100.0 % RAD, CHEST, 1 VIEW, NON [id number] 10:38:00Reason for exam:->IABP Should this be performed [...] MDReport Verified Date/Time: 07/18/2017 10:38:31 Reading Location: [facility] Radiology Reading Room CBC W/PLT COUNT & AUTO [id number] 10: 01:00 Test Item Value Reference Range Comments WHITE BLOOD CELL COUNT (BEAKER) (test yfpt=715) 12.8 K/ L 3.5-10.5 RED BLOOD CELL COUNT (BEAKER) (test alzf=090) 3.95 M/ L 3.93-5.22 HEMOGLOBIN (BEAKER) (test xkoc=217) 11.9 GM/DL 11.2-15.7 HEMATOCRIT (BEAKER) (test iueq=403) 38.3 % 34.1-44.9 MEAN CORPUSCULAR VOLUME (BEAKER) (test dqob=589) 97.0 fL 79.4-94.8 MEAN CORPUSCULAR HEMOGLOBIN (BEAKER) (test 30.1 pg 25.6-32.2 fbjb=948) MEAN CORPUSCULAR HEMOGLOBIN CONC (BEAKER) (test 31.1 GM/DL 32.2-35.5 qqeu=920) RED CELL DISTRIBUTION WIDTH (BEAKER) (test 13.1 % 11.7-14.4 rbmm=350) PLATELET COUNT (BEAKER) (test hgpj=993) 231 K/CU MM 150-450 MEAN PLATELET VOLUME (BEAKER) (test alta=934) 10.4 fL 9.4-12.3 NUCLEATED RED BLOOD CELLS (BEAKER) (test 0 /100 WBC 0-0 eqks=569) NEUTROPHILS RELATIVE PERCENT (BEAKER) (test 91 % ubow=260) LYMPHOCYTES RELATIVE PERCENT (BEAKER) (test 4 % mnwi=262) MONOCYTES RELATIVE PERCENT (BEAKER) (test 4 % ouop=734) EOSINOPHILS RELATIVE PERCENT (BEAKER) (test 0 % tcji=367) BASOPHILS RELATIVE PERCENT (BEAKER) (test 0 % euhq=449) NEUTROPHILS ABSOLUTE COUNT (BEAKER) (test 11.66 K/ L 1.56-6.13 gzbw=910) LYMPHOCYTES ABSOLUTE COUNT (BEAKER) (test 0.53 K/ L 1.18-3.74 ujtb=977) MONOCYTES ABSOLUTE COUNT (BEAKER) (test 0.49 K/ L 0.24-0.36 mibh=827) EOSINOPHILS ABSOLUTE COUNT (BEAKER) (test 0.01 K/ L 0.04-0.36 yibm=577) BASOPHILS ABSOLUTE COUNT (BEAKER) (test 0.03 K/ L 0.01-0.08 vfne=867) IMMATURE GRANULOCYTES-RELATIVE PERCENT (BEAKER) 0 % 0-1 (test zgrw=5442) COMPREHENSIVE METABOLIC [id number] 09:38:00 Test Item Value Reference Range Comments TOTAL PROTEIN (BEAKER) 6.7 gm/dL 6.0-8.3 Specimen slightly (test dryt=238) hemolyzed ALBUMIN (BEAKER) (test 3.5 g/dL 3.5-5.0 Specimen slightly rtmw=8777) hemolyzed ALKALINE PHOSPHATASE 70 U/L 40-150 (BEAKER) (test vlss=917) BILIRUBIN TOTAL (BEAKER) 0.6 mg/dL 0.2-1.2 Specimen slightly (test kbpn=045) hemolyzed SODIUM (BEAKER) (test 134 meq/L 136-145 awoh=848) POTASSIUM (BEAKER) (test 4.7 meq/L 3.5-5.1 Specimen slightly faid=081) hemolyzed CHLORIDE (BEAKER) (test 98 meq/L 98-107 ihlf=893) CO2 (BEAKER) (test 25 meq/L 22-29 sphe=639) BLOOD UREA NITROGEN 19 mg/dL 7-21 (BEAKER) (test vgzn=447) CREATININE (BEAKER) (test 1.57 mg/dL 0.57-1.25 Specimen slightly dexx=949) hemolyzed GLUCOSE RANDOM (BEAKER) 652 mg/dL 70-105 (test mriq=085) CALCIUM (BEAKER) (test 8.7 mg/dL 8.4-10.2 gsai=648) AST (SGOT) (BEAKER) (test 343 U/L 5-34 Specimen slightly owun=198) hemolyzed ALT (SGPT) (BEAKER) (test 89 U/L 6-55 Specimen slightly lyke=970) hemolyzed EGFR (BEAKER) (test 39 mL/min/1.73 sq m ESTIMATED GFR IS NOT zeue=3659) ACCURATE CREATININE CLEARANCE IN PREDICTING GLOMERULAR FILTRATION RATE. ESTIMATED GFR IS NOT APPLICABLE FOR DIALYSIS PATIENTS. [id number] 09:09:00 Test Item Value Reference Range Comments ACTIVATED CLOTTING TIME 252 sec TESTED AT [facility] [address] [facility] (BEAKER) (test vhcx=191) [place] [address] PROTHROMBIN [id number] 09:01:00 Test Item Value Reference Range Comments PROTIME (BEAKER) (test jfcz=787) 18.3 seconds 11.7-14.7 INR (BEAKER) (test psmh=318) 1.5 <=5.9 RECOMMENDED COUMADIN/WARFARIN INR THERAPY RANGESSTANDARD DOSE: 2.0 - 3.0 Includes: PROPHYLAXIS forvenous thrombosis, systemic embolization; TREATMENT for venous thrombosis and/or pulmonary embolus.HIGH RISK: Target INR is 2.5-3.5 for patients with mechanical heart valves.[id number] 08:09:00 Test Item Value Reference Range Comments ACTIVATED CLOTTING TIME 213 sec TESTED AT [address] (BEAKER) (test hmnk=457) [place] [address] [id number] 08:09:00 Test Item Value Reference Range Comments ACTIVATED CLOTTING TIME 263 sec TESTED AT [address] (BEAKER) (test pppg=272) [place] [address] BLOOD GAS, [id number] 07:50:00 Test Item Value Reference Range Comments PH ARTERIAL (BEAKER) (test phdp=321) 7.20 7.35-7.45 PCO2 ARTERIAL (BEAKER) (test vmkq=851) 65 mmHg 35-45 PO2 ARTERIAL (BEAKER) (test crmi=957) 133 mmHg 80-90 O2 SATURATION ARTERIAL (BEAKER) (test wocl=192) 98.1 % 96.0-97.0 HCO3 ARTERIAL (BEAKER) (test tugh=258) 25 mmol/L 21-29 BASE EXCESS ARTERIAL (BEAKER) (test ioyl=230) -4.3 mmol/L -2.0-3.0 PATIENT TEMPERATURE (BEAKER) (test ewrq=6866) 36.0 C FIO2 (BEAKER) (test hgbh=3448) 100.0 % POCT-GLUCOSE [id number] 12:27:00 Test Item Value Reference Range Comments POC-GLUCOSE METER (BEAKER) 156 mg/dL 70-110 TESTED AT [address] (test ziii=5643) [place] [address] BASIC METABOLIC [id number] 05:45:00 Test Item Value Reference Range Comments SODIUM (BEAKER) (test 141 meq/L 136-145 dkuk=663) POTASSIUM (BEAKER) (test 4.1 meq/L 3.5-5.1 ocpw=528) CHLORIDE (BEAKER) (test 106 meq/L 98-107 kzdq=196) CO2 (BEAKER) (test 26 meq/L 22-29 lzyb=023) BLOOD UREA NITROGEN 11 mg/dL 7-21 (BEAKER) (test wbud=671) CREATININE (BEAKER) (test 0.83 mg/dL 0.57-1.25 yazj=402) GLUCOSE RANDOM (BEAKER) 139 mg/dL 70-105 (test ehyo=762) CALCIUM (BEAKER) (test 8.5 mg/dL 8.4-10.2 ogrp=343) EGFR (BEAKER) (test 83 mL/min/1.73 sq m ESTIMATED GFR IS NOT atcd=5023) ACCURATE CREATININE CLEARANCE IN PREDICTING GLOMERULAR FILTRATION RATE. ESTIMATED GFR IS NOT APPLICABLE FOR DIALYSIS PATIENTS. POCT-GLUCOSE [id number] 21:10:00 Test Item Value Reference Range Comments POC-GLUCOSE METER (BEAKER) 103 mg/dL 70-110 TESTED AT [address] (test awxp=9397) [place] [address] POCT-GLUCOSE [id number] 17:51:00 Test Item Value Reference Range Comments POC-GLUCOSE METER (BEAKER) 138 mg/dL 70-110 TESTED AT [address] (test cvqv=3370) [place] [address] POCT-GLUCOSE [id number] 12:45:00 Test Item Value Reference Range Comments POC-GLUCOSE METER (BEAKER) 294 mg/dL 70-110 TESTED AT [address] (test ofgb=2383) [place] [address] CBC WITH PLATELET COUNT + MANUAL [id number] 07:04:00 Test Item Value Reference Range Comments WHITE BLOOD CELL COUNT (BEAKER) (test azvi=715) 10.7 K/ L 4.0-10.0 RED BLOOD CELL COUNT (BEAKER) (test kkqb=687) 3.91 M/ L 4.00-5.00 HEMOGLOBIN (BEAKER) (test iuwe=791) 12.9 GM/DL 12.0-15.0 HEMATOCRIT (BEAKER) (test vlok=057) 39.0 % 36.0-45.0 MEAN CORPUSCULAR VOLUME (BEAKER) (test juua=345) 99.6 fL 82.0-99.0 MEAN CORPUSCULAR HEMOGLOBIN (BEAKER) (test 32.9 pg 27.0-33.0 qdve=477) MEAN CORPUSCULAR HEMOGLOBIN CONC (BEAKER) (test 33.0 GM/DL 32.0-36.0 ubfy=006) RED CELL DISTRIBUTION WIDTH (BEAKER) (test 12.8 % 10.3-14.2 vinq=060) PLATELET COUNT (BEAKER) (test dpbn=011) 251 K/CU MM 150-430 MEAN PLATELET VOLUME (BEAKER) (test juxm=607) 8.1 fL 6.5-10.5 NUCLEATED RED BLOOD CELLS (BEAKER) (test 0 /100 WBC 0-0 lria=495) NEUTROPHILS RELATIVE PERCENT (BEAKER) (test 80 % uztr=523) LYMPHOCYTES RELATIVE PERCENT (BEAKER) (test 14 % eacc=762) MONOCYTES RELATIVE PERCENT (BEAKER) (test 6 % vfgh=074) EOSINOPHILS RELATIVE PERCENT (BEAKER) (test 0 % fuwr=321) BASOPHILS RELATIVE PERCENT (BEAKER) (test 0 % bipw=403) NEUTROPHILS ABSOLUTE COUNT (BEAKER) (test 8.55 K/ L 1.80-8.00 jsfx=423) LYMPHOCYTES ABSOLUTE COUNT (BEAKER) (test 1.46 K/ L 1.48-4.50 blzk=446) MONOCYTES ABSOLUTE COUNT (BEAKER) (test 0.60 K/ L 0.00-1.30 anua=182) EOSINOPHILS ABSOLUTE COUNT (BEAKER) (test 0.05 K/ L 0.00-0.50 xgom=685) BASOPHILS ABSOLUTE COUNT (BEAKER) (test 0.02 K/ L 0.00-0.20 oejx=116) 0.00(MANUAL DIFFERENTIAL)[id number] 07:04:00 Test Item Value Reference Range Comments TOTAL COUNTED (BEAKER) (test wbqa=5320) PLT MORPHOLOGY (BEAKER) (test pbmz=191) Normal RBC MORPHOLOGY (BEAKER) (test bpqh=901) Normal ATYPICAL LYMPHS(BEAKER) (test quov=4983) Present BASIC METABOLIC [id number] 05:05:00 Test Item Value Reference Range Comments SODIUM (BEAKER) (test 140 meq/L 136-145 oiix=231) POTASSIUM (BEAKER) (test 3.8 meq/L 3.5-5.1 bkbe=306) CHLORIDE (BEAKER) (test 107 meq/L 98-107 glsx=516) CO2 (BEAKER) (test 26 meq/L 22-29 mtsr=590) BLOOD UREA NITROGEN 13 mg/dL 7-21 (BEAKER) (test rwit=984) CREATININE (BEAKER) (test 0.80 mg/dL 0.57-1.25 jvfc=643) GLUCOSE RANDOM (BEAKER) 177 mg/dL 70-105 (test wnjn=017) CALCIUM (BEAKER) (test 8.3 mg/dL 8.4-10.2 yhdr=525) EGFR (BEAKER) (test 86 mL/min/1.73 sq m ESTIMATED GFR IS NOT vfwe=3095) ACCURATE CREATININE CLEARANCE IN PREDICTING GLOMERULAR FILTRATION RATE. ESTIMATED GFR IS NOT APPLICABLE FOR DIALYSIS PATIENTS. [id number] 04:48:00 Test Item Value Reference Range Comments PROTIME (BEAKER) (test iyiv=382) 13.0 seconds 11.7-14.7 INR (BEAKER) (test wjqr=565) 1.0 <=5.9 PARTIAL THROMBOPLASTIN TIME (BEAKER) (test 31.8 seconds 22.5-36.0 yopz=626) RECOMMENDED COUMADIN/WARFARIN INR THERAPY RANGESSTANDARD DOSE: 2.0 - 3.0 Includes: PROPHYLAXIS forvenous thrombosis, systemic embolization; TREATMENT for venous thrombosis and/or pulmonary embolus.HIGH RISK: Target INR is 2.5-3.5 for patients with mechanical heart valves.POCT-GLUCOSE [id number] 22:11:00 Test Item Value Reference Range Comments POC-GLUCOSE METER (BEAKER) 200 mg/dL 70-110 TESTED AT [address] (test kvnm=0513) [facility] [address] POCT-GLUCOSE [id number] 17:13:00 Test Item Value Reference Range Comments POC-GLUCOSE METER (BEAKER) 225 mg/dL 70-110 TESTED AT [address] (test nwxp=0154) [facility] [address] POCT-GLUCOSE [id number] 12:22:00 Test Item Value Reference Range Comments POC-GLUCOSE METER (BEAKER) 309 mg/dL 70-110 Notified PAULA BERGER/TESTED AT [facility] (test esxl=5420) [address] [place] [address] URINALYSIS W/ [id number] 12:09:00 Test Item Value Reference Range Comments COLOR (BEAKER) (test bcrc=651) Yellow CLARITY (BEAKER) (test vfex=032) Clear SPECIFIC GRAVITY UA (BEAKER) (test wsyp=924) 1.035 1.001-1.035 PH UA (BEAKER) (test wfna=866) 5.0 5.0-8.0 PROTEIN UA (BEAKER) (test tzoh=141) Negative Negative GLUCOSE UA (BEAKER) (test usuv=819) 150 mg/dL Negative KETONES UA (BEAKER) (test mfiu=341) Negative Negative BILIRUBIN UA (BEAKER) (test vmcx=812) Negative Negative BLOOD UA (BEAKER) (test eplo=109) Small Negative NITRITE UA (BEAKER) (test qjcg=838) Negative Negative LEUKOCYTE ESTERASE UA (BEAKER) (test xbmw=677) Negative Negative UROBILINOGEN UA (BEAKER) (test rbrh=994) 0.2 mg/dL 0.2-1.0 RBC UA (BEAKER) (test eyjw=630) 6 /HPF WBC UA (BEAKER) (test yqxt=823) 1 /HPF MUCUS (BEAKER) (test aass=1850) Rare SQUAMOUS EPITHELIAL (BEAKER) (test crmz=906) 6 /HPF HYALINE CASTS (BEAKER) (test xgtl=182) 2 /LPF SOURCE(BEAKER) (test qffb=0430) POCT-GLUCOSE [id number] 07:58:00 Test Item Value Reference Range Comments POC-GLUCOSE METER (BEAKER) 236 mg/dL 70-110 TESTED AT [address] (test rbjv=2214) [facility] [address] BASIC METABOLIC [id number] 04:10:00 Test Item Value Reference Range Comments SODIUM (BEAKER) (test 138 meq/L 136-145 bwjn=948) POTASSIUM (BEAKER) (test 4.2 meq/L 3.5-5.1 qlqg=413) CHLORIDE (BEAKER) (test 107 meq/L 98-107 xavl=156) CO2 (BEAKER) (test 22 meq/L 22-29 wpmg=366) BLOOD UREA NITROGEN 20 mg/dL 7-21 (BEAKER) (test hruz=772) CREATININE (BEAKER) (test 1.00 mg/dL 0.57-1.25 nmup=305) GLUCOSE RANDOM (BEAKER) 246 mg/dL 70-105 (test defl=092) CALCIUM (BEAKER) (test 8.8 mg/dL 8.4-10.2 nblj=955) EGFR (BEAKER) (test 67 mL/min/1.73 sq m ESTIMATED GFR IS NOT jmck=4655) ACCURATE CREATININE CLEARANCE IN PREDICTING GLOMERULAR FILTRATION RATE. ESTIMATED GFR IS NOT APPLICABLE FOR DIALYSIS PATIENTS. [id number] 04:03:00 Test Item Value Reference Range Comments PROTIME (BEAKER) (test ngmo=491) 12.8 seconds 11.7-14.7 INR (BEAKER) (test khbl=326) 1.0 <=5.9 PARTIAL THROMBOPLASTIN TIME (BEAKER) (test 29.6 seconds 22.5-36.0 gbxx=580) RECOMMENDED COUMADIN/WARFARIN INR THERAPY RANGESSTANDARD DOSE: 2.0 - 3.0 Includes: PROPHYLAXIS forvenous thrombosis, systemic embolization; TREATMENT for venous thrombosis and/or pulmonary embolus.HIGH RISK: Target INR is 2.5-3.5 for patients with mechanical heart valves.CBC WITH PLATELET COUNT + MANUAL [id number] 03:58:00 Test Item Value Reference Range Comments WHITE BLOOD CELL COUNT (BEAKER) (test wsjz=980) 14.3 K/ L 4.0-10.0 RED BLOOD CELL COUNT (BEAKER) (test glgz=473) 4.03 M/ L 4.00-5.00 HEMOGLOBIN (BEAKER) (test pzhq=243) 13.1 GM/DL 12.0-15.0 HEMATOCRIT (BEAKER) (test cpzt=806) 39.7 % 36.0-45.0 MEAN CORPUSCULAR VOLUME (BEAKER) (test nvtc=359) 98.5 fL 82.0-99.0 MEAN CORPUSCULAR HEMOGLOBIN (BEAKER) (test 32.6 pg 27.0-33.0 xsgp=757) MEAN CORPUSCULAR HEMOGLOBIN CONC (BEAKER) (test 33.1 GM/DL 32.0-36.0 vlwo=122) RED CELL DISTRIBUTION WIDTH (BEAKER) (test 12.9 % 10.3-14.2 vaow=153) PLATELET COUNT (BEAKER) (test gbbw=224) 271 K/CU MM 150-430 MEAN PLATELET VOLUME (BEAKER) (test vugk=715) 7.7 fL 6.5-10.5 NUCLEATED RED BLOOD CELLS (BEAKER) (test 0 /100 WBC 0-0 kxxt=365) NEUTROPHILS RELATIVE PERCENT (BEAKER) (test 87 % aygb=099) LYMPHOCYTES RELATIVE PERCENT (BEAKER) (test 7 % plie=806) MONOCYTES RELATIVE PERCENT (BEAKER) (test 6 % pnow=382) EOSINOPHILS RELATIVE PERCENT (BEAKER) (test 0 % ecrn=939) BASOPHILS RELATIVE PERCENT (BEAKER) (test 0 % gamf=148) NEUTROPHILS ABSOLUTE COUNT (BEAKER) (test 12.40 K/ L 1.80-8.00 jgst=711) LYMPHOCYTES ABSOLUTE COUNT (BEAKER) (test 1.06 K/ L 1.48-4.50 siqi=231) MONOCYTES ABSOLUTE COUNT (BEAKER) (test 0.81 K/ L 0.00-1.30 gvnp=924) EOSINOPHILS ABSOLUTE COUNT (BEAKER) (test 0.01 K/ L 0.00-0.50 esjt=692) BASOPHILS ABSOLUTE COUNT (BEAKER) (test 0.03 K/ L 0.00-0.20 wonf=782) 0.000.530.000.000.520.000.000.000.00POCT-GLUCOSE [id number] 22:17:00 Test Item Value Reference Range Comments POC-GLUCOSE METER (BEAKER) 260 mg/dL 70-110 TESTED AT [address] (test yjti=7007) [facility] [address] POCT-GLUCOSE [id number] 12:11:00 Test Item Value Reference Range Comments POC-GLUCOSE METER (BEAKER) 278 mg/dL 70-110 TESTED AT [address] (test mfqd=7443) [facility] [address] HEMOGLOBIN [id number] 10:46:00 Test Item Value Reference Range Comments HEMOGLOBIN A1C (BEAKER) (test cdxq=637) 9.7 % 4.3-6.1 DC\S\Delta Check\S\NONEPOCT-GLUCOSE [id number] 07:15:00 Test Item Value Reference Range Comments POC-GLUCOSE METER (BEAKER) 283 mg/dL 70-110 TESTED AT [place] [address] (test fgme=6386) [facility] [address] BASIC METABOLIC [id number] 04:43:00 Test Item Value Reference Range Comments SODIUM (BEAKER) (test 136 meq/L 136-145 gbbu=940) POTASSIUM (BEAKER) (test 4.0 meq/L 3.5-5.1 ywlt=989) CHLORIDE (BEAKER) (test 102 meq/L 98-107 rxqp=794) CO2 (BEAKER) (test 27 meq/L 22-29 hejf=860) BLOOD UREA NITROGEN 18 mg/dL 7-21 (BEAKER) (test vmvz=004) CREATININE (BEAKER) (test 0.95 mg/dL 0.57-1.25 qfat=488) GLUCOSE RANDOM (BEAKER) 256 mg/dL 70-105 (test jcrp=993) CALCIUM (BEAKER) (test 9.0 mg/dL 8.4-10.2 naec=114) EGFR (BEAKER) (test 71 mL/min/1.73 sq m ESTIMATED GFR IS NOT bbjl=4062) ACCURATE CREATININE CLEARANCE IN PREDICTING GLOMERULAR FILTRATION RATE. ESTIMATED GFR IS NOT APPLICABLE FOR DIALYSIS PATIENTS. CBC WITH PLATELET COUNT + MANUAL [id number] 04:28:00 Test Item Value Reference Range Comments WHITE BLOOD CELL COUNT (BEAKER) (test hbzn=648) 11.6 K/ L 4.0-10.0 RED BLOOD CELL COUNT (BEAKER) (test ltte=019) 4.15 M/ L 4.00-5.00 HEMOGLOBIN (BEAKER) (test rfyk=522) 13.3 GM/DL 12.0-15.0 HEMATOCRIT (BEAKER) (test fine=068) 40.5 % 36.0-45.0 MEAN CORPUSCULAR VOLUME (BEAKER) (test aady=070) 97.6 fL 82.0-99.0 MEAN CORPUSCULAR HEMOGLOBIN (BEAKER) (test 32.1 pg 27.0-33.0 droh=056) MEAN CORPUSCULAR HEMOGLOBIN CONC (BEAKER) (test 32.9 GM/DL 32.0-36.0 ornh=633) RED CELL DISTRIBUTION WIDTH (BEAKER) (test 12.7 % 10.3-14.2 dzno=318) PLATELET COUNT (BEAKER) (test kehy=519) 263 K/CU MM 150-430 MEAN PLATELET VOLUME (BEAKER) (test lmtz=253) 8.2 fL 6.5-10.5 NUCLEATED RED BLOOD CELLS (BEAKER) (test 0 /100 WBC 0-0 itqo=498) NEUTROPHILS RELATIVE PERCENT (BEAKER) (test 90 % yktr=830) LYMPHOCYTES RELATIVE PERCENT (BEAKER) (test 8 % kweu=178) MONOCYTES RELATIVE PERCENT (BEAKER) (test 2 % gqyp=178) EOSINOPHILS RELATIVE PERCENT (BEAKER) (test 0 % jpdk=391) BASOPHILS RELATIVE PERCENT (BEAKER) (test 0 % tgjl=505) NEUTROPHILS ABSOLUTE COUNT (BEAKER) (test 10.40 K/ L 1.80-8.00 uqwe=675) LYMPHOCYTES ABSOLUTE COUNT (BEAKER) (test 0.95 K/ L 1.48-4.50 yqgr=360) MONOCYTES ABSOLUTE COUNT (BEAKER) (test 0.20 K/ L 0.00-1.30 wdhm=662) EOSINOPHILS ABSOLUTE COUNT (BEAKER) (test 0.02 K/ L 0.00-0.50 kxrq=666) BASOPHILS ABSOLUTE COUNT (BEAKER) (test 0.02 K/ L 0.00-0.20 ytra=767) 0.00PT/[id number] 04:25:00 Test Item Value Reference Range Comments PROTIME (BEAKER) (test wuzk=123) 13.7 seconds 11.7-14.7 INR (BEAKER) (test axti=994) 1.1 <=5.9 PARTIAL THROMBOPLASTIN TIME (BEAKER) (test 32.8 seconds 22.5-36.0 fzol=195) RECOMMENDED COUMADIN/WARFARIN INR THERAPY RANGESSTANDARD DOSE: 2.0 - 3.0 Includes: PROPHYLAXIS forvenous thrombosis, systemic embolization; TREATMENT for venous thrombosis and/or pulmonary embolus.HIGH RISK: Target INR is 2.5-3.5 for patients with mechanical heart valves.POCT-GLUCOSE [id number] 02:47:00 Test Item Value Reference Range Comments POC-GLUCOSE METER (BEAKER) 278 mg/dL 70-110 TESTED AT [facility] [address] [facility] (test tsvt=0221) [facility] [id number] POCT-GLUCOSE [id number] 22:12:00 Test Item Value Reference Range Comments POC-GLUCOSE METER (BEAKER) 258 mg/dL 70-110 TESTED AT [facility] [address] (test mcxt=6139) [facility] [address] [id number] 15:44:00 Test Item Value Reference Range Comments MAGNESIUM (BEAKER) (test 2.1 mg/dL 1.6-2.6 Specimen slightly hemolyzed wwcm=222) [id number] 15:44:00 Test Item Value Reference Range Comments PHOSPHORUS (BEAKER) (test 2.9 mg/dL 2.3-4.7 Specimen slightly hemolyzed wghj=801) BASIC METABOLIC [id number] 15:44:00 Test Item Value Reference Range Comments SODIUM (BEAKER) (test 137 meq/L 136-145 bztw=340) POTASSIUM (BEAKER) (test 4.4 meq/L 3.5-5.1 Specimen slightly ehzj=131) hemolyzed CHLORIDE (BEAKER) (test 99 meq/L 98-107 wzzq=954) CO2 (BEAKER) (test 27 meq/L 22-29 hnus=613) BLOOD UREA NITROGEN 13 mg/dL 7-21 (BEAKER) (test demk=634) CREATININE (BEAKER) (test 0.96 mg/dL 0.57-1.25 Specimen slightly pnli=854) hemolyzed GLUCOSE RANDOM (BEAKER) 250 mg/dL 70-105 (test bvdi=111) CALCIUM (BEAKER) (test 9.6 mg/dL 8.4-10.2 nint=601) EGFR (BEAKER) (test 70 mL/min/1.73 sq m ESTIMATED GFR IS NOT dwkn=5771) ACCURATE CREATININE CLEARANCE IN PREDICTING GLOMERULAR FILTRATION RATE. ESTIMATED GFR IS NOT APPLICABLE FOR DIALYSIS PATIENTS. CBC WITH PLATELET COUNT + MANUAL [id number] 15:39:00 Test Item Value Reference Range Comments WHITE BLOOD CELL COUNT (BEAKER) (test zkom=464) 9.5 K/ L 4.0-10.0 RED BLOOD CELL COUNT (BEAKER) (test txqw=655) 4.18 M/ L 4.00-5.00 HEMOGLOBIN (BEAKER) (test bmai=141) 14.0 GM/DL 12.0-15.0 HEMATOCRIT (BEAKER) (test ohvz=820) 40.7 % 36.0-45.0 MEAN CORPUSCULAR VOLUME (BEAKER) (test pers=255) 97.3 fL 82.0-99.0 MEAN CORPUSCULAR HEMOGLOBIN (BEAKER) (test 33.4 pg 27.0-33.0 edtc=961) MEAN CORPUSCULAR HEMOGLOBIN CONC (BEAKER) (test 34.3 GM/DL 32.0-36.0 jmgw=236) RED CELL DISTRIBUTION WIDTH (BEAKER) (test 12.6 % 10.3-14.2 ffbt=876) PLATELET COUNT (BEAKER) (test scay=412) 253 K/CU MM 150-430 MEAN PLATELET VOLUME (BEAKER) (test piuw=138) 8.1 fL 6.5-10.5 NUCLEATED RED BLOOD CELLS (BEAKER) (test 0 /100 WBC 0-0 wung=937) NEUTROPHILS RELATIVE PERCENT (BEAKER) (test 91 % yclj=275) LYMPHOCYTES RELATIVE PERCENT (BEAKER) (test 8 % olxx=491) MONOCYTES RELATIVE PERCENT (BEAKER) (test 1 % lwvj=120) EOSINOPHILS RELATIVE PERCENT (BEAKER) (test 0 % laen=798) BASOPHILS RELATIVE PERCENT (BEAKER) (test 0 % qyjx=423) NEUTROPHILS ABSOLUTE COUNT (BEAKER) (test 8.66 K/ L 1.80-8.00 lskb=891) LYMPHOCYTES ABSOLUTE COUNT (BEAKER) (test 0.78 K/ L 1.48-4.50 erhb=250) MONOCYTES ABSOLUTE COUNT (BEAKER) (test 0.07 K/ L 0.00-1.30 ffug=951) EOSINOPHILS ABSOLUTE COUNT (BEAKER) (test 0.01 K/ L 0.00-0.50 kukr=333) BASOPHILS ABSOLUTE COUNT (BEAKER) (test 0.01 K/ L 0.00-0.20 qdov=354) [id number] 15:39:00 Test Item Value Reference Range Comments PROTIME (BEAKER) (test orcq=679) 12.7 seconds 11.7-14.7 INR (BEAKER) (test uhes=335) 1.0 <=5.9 PARTIAL THROMBOPLASTIN TIME (BEAKER) (test 32.8 seconds 22.5-36.0 smpi=438) RECOMMENDED COUMADIN/WARFARIN INR THERAPY RANGESSTANDARD DOSE: 2.0 - 3.0 Includes: PROPHYLAXIS forvenous thrombosis, systemic embolization; TREATMENT for venous thrombosis and/or pulmonary embolus.HIGH RISK: Target INR is 2.5-3.5 for patients with mechanical heart valves.
[2018-08-18 13:24] LABS: Absolute Lymphocytes (CBC) 0.6 K/uL (0.7-4.9); Absolute Monocytes 0.3 K/uL (0.1-1.3); Absolute Neutrophil 6.9 K/uL (1.8-8.0); Basophils % 1.2 % (0-1.3); Eosinophils % 1.5 % (0-4.4); Hematocrit 32.8 % (36.0-45.0); Lymphocytes % 6.9 % (15.3-44.8); MPV 8.4 fL (7.6-11.3); Monocytes % 4.2 % (3.3-12.3)
[2018-08-18 13:28] LABS: Protime INR 1.01
--- NOTE | 2018-08-18 13:35 | RAD REPORT ---
EXAM DESCRIPTION: RAD - Chest Single View - 08/18/2018 1:23 pm CLINICAL HISTORY: MALAISE Chest pain. COMPARISON: Chest Single View dated 08/10/2018; Chest Single View dated 08/05/2018; Chest Pa And Lat (2 Views) dated 06/26/2018; Chest Pa And Lat (2 Views) dated 06/20/2018 FINDINGS: Portable technique limits examination quality. The lungs are grossly clear. Very tortuous thoracic aorta with stent material noted. The heart is mod erately enlarged. Right PICC line has tip in the SVC.Overall, findings are stable since comparative s tudy. IMPRESSION: No acute intrathoracic process suspected.
[2018-08-18 13:43] LABS: Albumin 3.6 g/dL (3.4-5.0); Bilirubin Direct 0.2 mg/dL (0-0.2); Bilirubin Total 0.4 mg/dL (0.2-1.0); Magnesium 1.7 mg/dL (1.8-2.4); Potassium 3.8 mmol/L (3.5-5.1); Protein, Total 8.1 g/dL (6.4-8.2); Troponin (Emerg Dept Use Only) 0.02 ng/mL (0.0-0.045)
--- NOTE | 2018-08-18 13:52 | EDPHYS ---
Physician Documentation [facility] Name: Christa Ayala Age: 72 yrs Sex: Female : 1945 Arrival Date: 08/18/2018 Time: 12:13 Bed 6 Private MD: ED Physician Junito Starkey HPI: 08/19 07:09 This 72 yrs old Black Female presents to ER via EMS with complaints of syncope. gs 07:09 The patient has experienced syncope, collapsed. Onset: The symptoms/episode gs began/occurred acutely, just prior to arrival, this morning. Duration: This was a single episode. Context: occurred at home, occurred while the patient was defecating, Just prior to the episode the patient experienced lightheadedness. Associated injury: The patient did not suffer any apparent associated injury. Associated signs and symptoms: Pertinent negatives: chest pain, confusion. Current symptoms: Currently, the patient is not experiencing any symptoms, the patient feels back to baseline. The patient has experienced similar episodes in the past, a few times. Historical: - Allergies: 08/18 13:33 Codeine; tw2 13:33 Iodine; tw2 13:33 Demerol; tw2 13:42 Demerol; tw2 13:42 Iodine; tw2 13:42 Codeine; tw2 - Home Meds: 13:42 acetaminophen 325 mg Oral tab 1 -2 tabs every 4-6 hours for Pain [Active]; aspirin 81 tw2 mg Oral TbEC 1 tab once daily [Active]; atorvastatin 40 mg Oral tab 1 tab nightly [Active]; bumetanide 1 mg Oral tab 1 tab 2 times per day [Active]; carvedilol 6.25 mg Oral tab 1 tab 2 times per day [Active]; digoxin 125 mcg Oral tab 1 tab once daily [Active]; escitalopram oxalate 10 mg Oral tab 1 tab once daily [Active]; Gentle Laxative 5 mg Oral TbEC 2 tabs once daily [Active]; glimepiride 1 mg Oral tab 1 tab once daily [Active]; isosorbide mononitrate 30 mg Oral Tb24 1 tab once daily [Active]; metformin 1,000 mg Oral tab 1 tab 2 times per day [Active]; milrinone 400 mcg/ml intravenous continuous as directed [Active]; pantoprazole 40 mg Oral TbEC 1 tab once daily [Active]; Plavix 75 mg Oral tab 1 tab once daily [Active]; - PMHx: 13:33 COPD; Hypertension; enlarged aorta; Myocardial infarction; Diabetes - NIDDM; Emphysema; tw2 CHF; 13:42 Diabetes - NIDDM; Myocardial infarction; enlarged aorta; Emphysema; COPD; Hypertension; tw2 CHF; - Immunization history:: Adult Immunizations Adult Immunizations. - Social history:: Smoking status: Smoking status: . - Ebola Screening: : Patient denies travel to an Ebola-affected area in the 21 days before illness onset Patient denies travel to an Ebola-affected area in the 21 days before illness onset. ROS: 08/19 07:09 All other systems are negative. gs Exam: 07:09 Head/Face: Normocephalic, atraumatic. Eyes: Pupils equal round and reactive to light, gs extra-ocular motions intact. Lids and lashes normal. Conjunctiva and sclera are non-icteric and not injected. Cornea within normal limits. Periorbital areas with no swelling, redness, or edema. ENT: Nares patent. No nasal discharge, no septal abnormalities noted. Tympanic membranes are normal and external auditory canals are clear. Oropharynx with no redness, swelling, or masses, exudates, or evidence of obstruction, uvula midline. Mucous membranes moist. Neck: Trachea midline, no thyromegaly or masses palpated, and no cervical lymphadenopathy. Supple, full range of motion without nuchal rigidity, or vertebral point tenderness. No Meningismus. Chest/axilla: Normal chest wall appearance and motion. Nontender with no deformity. No lesions are appreciated. Cardiovascular: Regular rate and rhythm with a normal S1 and S2. No gallops, murmurs, or rubs. Normal PMI, no JVD. No pulse deficits. Respiratory: Lungs have equal breath sounds bilaterally, clear to auscultation and percussion. No rales, rhonchi or wheezes noted. No increased work of breathing, no retractions or nasal flaring. Abdomen/GI: Soft, non-tender, with normal bowel sounds. No distension or tympany. No guarding or rebound. No evidence of tenderness throughout. Back: No spinal tenderness. No costovertebral tenderness. Full range of motion. Skin: Warm, dry with normal turgor. Normal color with no rashes, no lesions, and no evidence of cellulitis. MS/ Extremity: Pulses equal, no cyanosis. Neurovascular intact. Full, normal range of motion. Neuro: Awake and alert, GCS 15, oriented to person, place, time, and situation. Cranial nerves II-XII grossly intact. Motor strength 5/5 in all extremities. Sensory grossly intact. Cerebellar exam normal. Normal gait. 07:09 ECG was reviewed by the Attending Physician. Vital Signs: 08/18 12:21 BP 118 / 81; Pulse 87; Resp 18; Pulse Ox 93% on R/A; tw2 13:30 BP 115 / 85; Pulse 87; Resp 17; Pulse Ox 97% on 3 lpm NC; tw2 13:31 Temp 98.4(O); Weight 52.16 kg (R); Height 5 ft. 6 in. (167.64 cm) (R); tw2 14:18 BP 125 / 83; Pulse 91; Resp 19; Pulse Ox 100% on 3 lpm NC; tw2 14:57 BP 123 / 74; Pulse 90; Resp 17; Pulse Ox 100% on R/A; tw2 13:31 Body Mass Index 18.56 (52.16 kg, 167.64 cm) tw2 12:21 pt states "use oxygen at home via 3L nc" tw2 MDM: 12:39 Patient medically screened. 08/19 07:09 Differential Diagnosis: cardiac arrhythmia, idiopathic syncope, vasovagal episode. Data reviewed: vital signs, nurses notes. Counseling: I had a detailed discussion with the patient and/or guardian regarding: the historical points, exam findings, and any diagnostic results supporting the discharge/admit diagnosis, lab results, radiology results, the need for outpatient follow up. Response to treatment: the patient's symptoms have resolved after treatment, the patient's condition has returned to base line, and as a result, I will discharge patient. 08/18 12:39 Order name: Basic Metabolic Panel; Complete Time: 13:48 08/18 12:39 Order name: CBC with Diff 08/18 12:39 Order name: LFT's; Complete Time: 13:48 08/18 12:39 Order name: Magnesium; Complete Time: 13:48 08/18 12:39 Order name: NT PRO-BNP; Complete Time: 13:48 08/18 12:39 Order name: PT-INR; Complete Time: 13:48 08/18 12:39 Order name: Troponin (emerg Dept Use Only); Complete Time: 13:48 08/18 12:39 Order name: XRAY Chest (1 view); Complete Time: 13:48 08/18 12:39 Order name: EKG; Complete Time: 12:40 08/18 12:39 Order name: Cardiac monitoring; Complete Time: 13:31 08/18 12:39 Order name: EKG - Nurse/Tech; Complete Time: 14:10 08/18 12:39 Order name: IV Saline Lock; Complete Time: 14:10 08/18 12:39 Order name: Labs collected and sent; Complete Time: 14:10 08/18 14:31 Order name: CBC Smear Scan [facility] 08/18 12:39 Order name: O2 Per Protocol; Complete Time: 14:10 08/18 12:39 Order name: O2 Sat Monitoring; Complete Time: 14:10 EC:09 Rate is 84 beats/min. Rhythm is regular. MD interval is normal. QRS interval is normal. gs QT interval is normal. T waves are Flattened. Clinical impression: NSR w/ Non-specific ST/T Changes. Interpreted by me. Administered Medications: No medications were administered Disposition: 08/18/18 13:51 Discharged to Home. Impression: Syncope and collapse. - Condition is Stable. - Discharge Instructions: Near-Syncope, Vasovagal Syncope, Adult. - Medication Reconciliation Form, Thank You Letter, Antibiotic Education, Prescription Opioid Use form. - Follow up: Private Physician; When: 2 - 3 days; Reason: Re-evaluation by your physician. Signatures: Dispatcher [employer] EDMN Marcie Garcia RN RN tw2 Junito Starkey MD MD Corrections: (The following items were deleted from the chart) 08/18 14:59 13:51 08/18/2018 13:51 Discharged to Home. Impression: Syncope and collapse. Condition tw2 is Stable. Forms are Medication Reconciliation Form, Thank You Letter, Antibiotic Education, Prescription Opioid Use. Follow up: Private Physician; When: 2 - 3 days; Reason: Re-evaluation by your physician.
--- NOTE | 2018-08-18 13:52 | ER ---
Nurse's Notes [facility] Name: Christa Ayala Age: 72 yrs Sex: Female : 1945 Arrival Date: 08/18/2018 Time: 12:13 Bed 6 Private MD: Diagnosis: Syncope and collapse Presentation: 08/18 12:09 Presenting complaint: EMS states: pt has external life vest that monitors her HR and tw2 BP, she went to the bathroom, family states she then became lethargic, HR has been between 40-180, pt has Hx of Afib, PICC to upper RIGHT arm, 20g LEFT ac. Transition of care: patient was not received from another setting of care. Onset of symptoms was August 18, 2018. Risk Assessment: Do you want to hurt yourself or someone else? Patient reports no desire to harm self or others. Initial Sepsis Screen: Does the patient meet any 2 criteria? Altered Mental Status. Does the patient have a suspected source of infection? No. Patient's initial sepsis screen is negative. Care prior to arrival: IV initiated. 20 GA, in the left antecubital area. 12:09 Method Of Arrival: EMS: [facility] tw2 12:09 Acuity: SONYA 2 tw2 Triage Assessment: 12:09 General: Appears in no apparent distress. Behavior is cooperative. Pain: Denies pain. tw2 Historical: - Allergies: 13:33 Codeine; tw2 13:33 Iodine; tw2 13:33 Demerol; tw2 13:42 Demerol; tw2 13:42 Iodine; tw2 13:42 Codeine; tw2 - Home Meds: 13:42 acetaminophen 325 mg Oral tab 1 -2 tabs every 4-6 hours for Pain [Active]; aspirin 81 tw2 mg Oral TbEC 1 tab once daily [Active]; atorvastatin 40 mg Oral tab 1 tab nightly [Active]; bumetanide 1 mg Oral tab 1 tab 2 times per day [Active]; carvedilol 6.25 mg Oral tab 1 tab 2 times per day [Active]; digoxin 125 mcg Oral tab 1 tab once daily [Active]; escitalopram oxalate 10 mg Oral tab 1 tab once daily [Active]; Gentle Laxative 5 mg Oral TbEC 2 tabs once daily [Active]; glimepiride 1 mg Oral tab 1 tab once daily [Active]; isosorbide mononitrate 30 mg Oral Tb24 1 tab once daily [Active]; metformin 1,000 mg Oral tab 1 tab 2 times per day [Active]; milrinone 400 mcg/ml intravenous continuous as directed [Active]; pantoprazole 40 mg Oral TbEC 1 tab once daily [Active]; Plavix 75 mg Oral tab 1 tab once daily [Active]; - PMHx: 13:33 COPD; Hypertension; enlarged aorta; Myocardial infarction; Diabetes - NIDDM; Emphysema; tw2 CHF; 13:42 Diabetes - NIDDM; Myocardial infarction; enlarged aorta; Emphysema; COPD; Hypertension; tw2 CHF; - Immunization history:: Adult Immunizations Adult Immunizations. - Social history:: Smoking status: Smoking status: . - Ebola Screening: : Patient denies travel to an Ebola-affected area in the 21 days before illness onset Patient denies travel to an Ebola-affected area in the 21 days before illness onset. Screenin:23 Abuse screen: Denies threats or abuse. Nutritional screening: No deficits noted. tw2 Tuberculosis screening: No symptoms or risk factors identified. Fall Risk Secondary diagnosis (15 points) impaired mobility. Assessment: 12:10 Reassessment: pt has PICC in place to upper RIGHT arm and an external life vest on at tw2 this time. General: Appears in no apparent distress. slender, Behavior is calm, cooperative, appropriate for age. Pain: Denies pain. Neuro: Level of Consciousness is awake, obeys commands, Oriented to person, place. Cardiovascular: Heart tones S1 S2 Patient's skin is warm and dry. Cardiovascular: Respiratory: Airway is patent Respiratory effort is even, unlabored, Respiratory pattern is regular, symmetrical, Breath sounds are clear bilaterally. GI: No signs and/or symptoms were reported involving the gastrointestinal system. Abdomen is flat, non-distended, Bowel sounds present X 4 quads. : No signs and/or symptoms were reported regarding the genitourinary system. EENT: No signs and/or symptoms were reported regarding the EENT system. Derm: No signs and/or symptoms reported regarding the dermatologic system. Derm: Musculoskeletal: Range of motion: intact in all extremities. 13:40 Reassessment: Patient appears in no apparent distress at this time. No changes from tw2 previously documented assessment. Patient and/or family updated on plan of care and expected duration. Pain level reassessed. 14:19 Reassessment: Patient appears in no apparent distress at this time. No changes from tw2 previously documented assessment. Patient and/or family updated on plan of care and expected duration. Pain level reassessed. 14:57 Reassessment: Patient appears in no apparent distress at this time. No changes from tw2 previously documented assessment. Patient and/or family updated on plan of care and expected duration. Pain level reassessed. Vital Signs: 12:21 BP 118 / 81; Pulse 87; Resp 18; Pulse Ox 93% on R/A; tw2 13:30 BP 115 / 85; Pulse 87; Resp 17; Pulse Ox 97% on 3 lpm NC; tw2 13:31 Temp 98.4(O); Weight 52.16 kg (R); Height 5 ft. 6 in. (167.64 cm) (R); tw2 14:18 BP 125 / 83; Pulse 91; Resp 19; Pulse Ox 100% on 3 lpm NC; tw2 14:57 BP 123 / 74; Pulse 90; Resp 17; Pulse Ox 100% on R/A; tw2 13:31 Body Mass Index 18.56 (52.16 kg, 167.64 cm) tw2 12:21 pt states "use oxygen at home via 3L nc" tw2 ED Course: 12:09 Placed in gown. Bed in low position. Side rails up X2. behavioral psychologist on. Pulse ox on. tw2 NIBP on. Warm blanket given. 12:13 Patient arrived in ED. ss 12:15 Maintain EMS IV. Dressing intact. Good blood return noted. Site clean \\T\\ dry. Gauge \\T\\ tw 2 site: 20g LEFT ac. 12:17 Junito Starkey MD is Attending Physician. gs 12:21 Triage completed. tw2 12:23 Arm band placed on. tw2 12:25 Marcie Garcia RN is Primary Nurse. tw2 12:28 EKG done, by fleet technician. reviewed by Junito Starkey MD. at1 13:18 X-ray completed. Portable x-ray completed in exam room. jr1 13:23 XRAY Chest (1 view) In Process Unspecified. EDMS 14:16 Awaiting transportation, Awaiting: and portable oxygen tank PRIOR to discharge. tw2 14:18 No provider procedures requiring assistance completed. tw2 14:58 IV discontinued, intact, bleeding controlled, No redness/swelling at site. Pressure tw2 dressing applied. Administered Medications: No medications were administered Outcome: 13:51 Discharge ordered by . 14:58 Discharged to home via wheelchair, with family. tw2 14:58 Condition: stable 14:58 Discharge instructions given to patient, family, Instructed on discharge instructions, follow up and referral plans. Demonstrated understanding of instructions, follow-up care. 14:59 Patient left the ED. tw2 Signatures: Dispatcher [employer] EDMS [place] [email or web address] Yecenia Horner RN RN Tasha Moralez, civil engineering draftsperson EKG Tat1 Marcie Garcia RN RN tw2 Junito Starkey MD MD
[2018-08-18 14:29] LABS: Blood Morphology Comment NOT SEEN (NOT SEEN); Platelet Estimate ADEQ; Urine White Blood Cell Casts OK
--- NOTE | 2018-08-18 14:44 | EKG ---
Test Date: 2018-08-18 Test Time: 12:23:02 Patient Support Tech: HAMMAD MEASUREMENT RESULTS: Intervals: Rate: 84 PA: 170 QRSD: 86 QT: 354 QTc: 418 [place]: P: 53 PA: 170 QRS: 15 T: -19 INTERPRETIVE STATEMENTS: Normal sinus rhythm Cannot rule out Inferior infarct, age undetermined Abnormal ECG Compared to ECG 08/10/2018 12:46:04 No significant changes Electronically Signed On 08-18-18 14:43:44 CDT by John Foster
[2018-08-18 15:33] VITALS: TEMP 98.4
[2018-08-18 15:34] VITALS: O2SAT 100
[2018-08-18 15:35] VITALS: BP 123/74
== END 2018-08-18 14:59 | disposition home or self-care (01) ==
LOC: ER 12:09
DX: R55 Syncope and collapse (principal); I10 Essential (primary) hypertension; E11.9 Type 2 diabetes mellitus without complications; J44.9 Chronic obstructive pulmonary disease, unspecified; I25.2 Old myocardial infarction; Z79.01 Long term (current) use of anticoagulants; Z79.82 Long term (current) use of aspirin
CPT/HCPCS: 36415; 71045; 80048; 80076; 83735; 83880; 84484; 85025; 85610; 93005; 99284

== ENCOUNTER 2018-08-24 12:09 | Observation (INO) | payer OTHER ==
--- OUTSIDE RECORDS SUMMARY | 2018-08-24 12:13 | XMS REPORT | Clinical Summary ---
:1945 Author Organization [facility] Address [address] [place] [address] Care Team Providers Name Role Phone RodneyKendrick [...] dextrose 5% (D5W) 100 mL (200 mcg/mL) carvedilol Take 1 tablet 60 tablet 0 [...] (six) inhaler hours as needed for Wheezing. bisacodyl Take 2 tablets (10 30 tablet 0 07/23/2018 (DULCOLAX) 5 mg mg total) by mouth 9 EC tablet daily for 30 days. Active Problems Problem Noted Date Right ventricular [...] Resolved Date Stool impaction 07/03/2018 07/13/2018 Acute respiratory insufficiency 07/13/2018 Encounters Date Type Specialty Care Team Description 08/09/2018 Orders Only Ceferino Petersona Descending thoracic U, SUPERVISOR BEET END aortic aneurysm (HCC) (Primary Dx) 08/09/2018 Orders Only Diaz, Melanie I 08/08/2018 Orders Only Diaz, Melanie I 07/11/2018 Travel 07/08/2018 Orders Only General Internal Medicine 07/03/2018 Travel 06/30/2018 Travel 06/29/2018 Anesthesia Event Isaac Norman MD 06/29/2018 - Hospital Encounter Cardiology Ludwig Campos ST elevation myocardial infarction involving left circumflex coronary artery (HCC); 07/22/2018 MD Eric Acute postoperative pain; Malathi, Aneurysm (HCC); Masha Chronic systolic heart failure (HCC); MD Suzette H/O aortic aneurysm repair; Polymorphic ventricular tachycardia (HCC); Type 2 diabetes mellitus with other specified complication, unspecified whether halfway insulin use (HCC); Cardiogenic shock (HCC); Ischemic cardiomyopathy; Acute on chronic systolic heart failure (HCC); Acute respiratory insufficiency; Right ventricular dysfunction; Essential hypertension 06/29/2018 Surgery Shahidaza, REPAIR,TEVAR-THORACIC [facility] ENDOVASCULAR ANEURYSM MD Suzette after 08/23/2017 Family History Medical History Relation Name Comments [...] Office Visit Transplant Kenton Levy MD [address] [address] [phone] Implants Implanted Type Area Feeder Associate Device Shelf Model / Identifier Expiration Serial / Date Lot Grft Zenith Thor Endo [id number] - [id number] CV Aneurysm COOK:AORTIC [id number] 03/20/2021 [id number] / Implanted: Qty: 1 on 06/29/2018 by Masha Servin MD INTERVENTION / [id number] Grft Zenith Thor Endo [id number] - [id number] CV Aneurysm COOK:AORTIC [id number] 02/10/2019 [id number] / Implanted: Qty: 1 on 06/29/2018 by Masha Servin MD INTERVENTION / [id number] Grft Zenith Thor Endo [id number] - [id number] CV Aneurysm COOK:AORTIC [id number] 12/27/2020 [id number] / Implanted: Qty: 1 on 06/29/2018 by Masha Servin MD INTERVENTION / [id number] [employer] Cardiovascular Coronary [place] [id number] 01/10/2018 [id number] / Implanted: Qty: 1 on 07/18/2017 by Oksana Stallings MD SCIENTIFIC / [id number] Procedures Procedure Name Priority Date/Time Associated Comments [...] Notes TEVAR, CSF Special Needs TEVAR, CSF after 08/23/2017 Results RHYTHM STRIP - SCAN (07/25/2018 9:50 AM CDT)Only the most recent of3 resultswithin the time period is included. Narrative Performed At VASCULAR DIAGRAM -SCAN (07/25/2018 9:50 AM CDT) Narrative Performed At POC-Glucose meter (07/22/2018 12:27 PM CDT)Only the most recent of64 resultswithin the time period is included. POC-Glucose Meter 221 (H)Comment: TESTED AT 70 - 110 mg/dL [facility] [address] [facility] [address] Specimen Blood Performing Organization Address City/[facility]/Zipcode Phone Number [place] [phone] [place] [address] CENTER XR chest 1 view portable / bedside (07/22/2018 6:38 AM CDT)Only the most recent of25 resultswithin the time period is included. Specimen Narrative Performed At FINAL REPORT GE RIS RAD, CHEST, 1 VIEW, NON DEPT INDICATION: post op COMPARISON: Prior day's exam FINDINGS: Portable frontal view of the chest. IMPRESSION: Support Lines: Stable. Lungs and pleura: Unchanged airspace and pleural opacities. No pneumothorax. Heart and mediastinum: Stable contours. Stable surgical changes. Additional findings: None. Signed: Trey Robles MD Report Verified Date/Time:07/22/2018 08:57:17 Reading Location: [address] Neuro Reading Room Procedure Note Interface, [...] Report Verified Date/Time: 07/22/2018 08:57:17 Reading Location: [address] Neuro Reading Room Performing Organization Address City/State/Zipcode Phone Number GE RIS aPTT (07/22/2018 4:58 AM CDT)Only the most recent of22 resultswithin the time period is included. PTT 44.5 (H) 22.5 - 36.0 seconds [facility] Specimen Blood Performing Organization Address City/[facility]/Zipcode Phone Number [address] [address] [place] CBC (Hemogram only) (07/22/2018 4:58 AM CDT)Only the most recent of20 resultswithin the time period is included. WBC 6.6 3.5 - 10.5 K/L [facility] RBC 2.45 (L) 3.93 - 5.22 M/L [facility] Hemoglobin 7.7 (L) 11.2 - 15.7 GM/DL [facility] Hematocrit 26.1 (L) 34.1 - 44.9 % [facility] MCV 106.5 (H) 79.4 - 94.8 fL [facility] MCH 31.4 25.6 - 32.2 pg [facility] MCHC 29.5 (L) 32.2 - 35.5 GM/DL [facility] RDW 18.0 (H) 11.7 - 14.4 % [facility] Platelets 227 150 - 450 K/CU MM [facility] MPV 10.0 9.4 - 12.3 fL [facility] nRBC 0 0 - 0 /100 WBC [facility] Specimen Blood Performing Organization Address City/State/Zipcode Phone Number [address] [address] [phone] CENTER Phosphorus (07/22/2018 4:58 AM CDT)Only the most recent of20 resultswithin the time period is included. Phosphorus 3.9 2.3 - 4.7 mg/dL [facility] Specimen Blood Performing Organization Address City/State/Zipcode Phone Number [address] [address] CENTER Magnesium (07/22/2018 4:58 AM CDT)Only the most recent of22 resultswithin the time period is included. Magnesium 1.7 1.6 - 2.6 mg/dL [facility] Specimen Blood Performing Organization Address City/[facility]/[place] Phone Number [facility] [address] [place] [address] [phone] CENTER Basic Metabolic Panel (07/22/2018 4:58 AM CDT)Only the most recent of27 resultswithin the time period is included. Sodium 139 136 - 145 meq/L [facility] Potassium 4.4 3.5 - 5.1 meq/L [facility] Chloride 102 98 - 107 meq/L [facility] CO2 30 (H) 22 - 29 meq/L [facility] BUN 23 (H) 7 - 21 mg/dL [facility] Creatinine 1.40 (H) 0.57 - 1.25 mg/dL [facility] Glucose 139 (H) 70 - 105 mg/dL [facility] Calcium 8.8 8.4 - 10.2 mg/dL [facility] EGFR 45Comment: ESTIMATED GFR IS mL/min/1.73 sq m [facility] NOT ACCURATE CREATININE [facility] CENTER CLEARANCE IN PREDICTING GLOMERULAR FILTRATION RATE. ESTIMATED GFR IS NOT APPLICABLE FOR DIALYSIS PATIENTS. Specimen Blood Performing Organization Address City/[facility]/Zipcode Phone Number [facility] [address] [place] [address] [phone] CENTER Prothrombin time/INR (07/19/2018 4:49 AM CDT)Only the most recent of19 resultswithin the time period is included. Protime 13.9 11.7 - 14.7 seconds [facility] INR 1.1 <=5.9 [facility] Specimen Blood Narrative Performed At RECOMMENDED COUMADIN/WARFARIN INR THERAPY [facility] RANGES STANDARD DOSE: 2.0 - 3.0 Includes: PROPHYLAXIS for venous thrombosis, systemic embolization; TREATMENT for venous thrombosis and/or pulmonary embolus. HIGH RISK: Target INR is 2.5-3.5 for patients with mechanical heart valves. Performing Organization Address [facility]/[place] Phone Number [address] [address] [phone] CENTER Digoxin level (07/13/2018 8:06 AM CDT) Digoxin Lvl 0.8 0.8 - 2.0 ng/mL [facility] Specimen Blood Narrative Performed At Draw before next dose of Digoxin [facility] Performing Organization Address [facility] Phone Number [address] [address] [phone] [place] TRANSFUSION SERVICE REPORT - SCAN (07/12/2018 5:56 PM CDT)Only the most recent of3 resultswithin the time period is included. Narrative Performed At Prepare Leuko-Red RBC (07/11/2018 11:54 PM CDT) Unit ABO A Pos SAFETRACE TX UNIT NUMBER [id number] SAFETRACE TX Status TX_TIMEINCHART SAFETRACE TX Blood Bank Product RED BLOOD CELLS SAFETRACE TX PRODUCT CODE [id number] SAFETRACE TX CROSSMATCH COMPATIBLE SAFETRACE TX Specimen Other Performing Organization Address [facility] Phone Number SAFETRACE [place] Transfuse Leuko-Red RBC (07/10/2018 6:35 PM CDT)Only the most recent of2 resultswithin the time period is included.Type and screen, automated (2018 5:25 AM CDT)Only the most recent of2 resultswithin the time period is included. ABO/RH AUTOMATED (BEAKER) A POSITIVE [facility] Ab Scrn NEGATIVE [facility] Specimen Blood Performing Organization Address [facility]/[place] Phone Number [address] [address] ECG 12 lead (07/08/2018 12:15 PM CDT)Only the most recent of2 resultswithin the time period is included. Specimen Narrative Performed At Ventricular Rate 107 BPM GE MUSE Atrial Rate 107 BPM P-R Interval 154 ms QRS Duration 104 ms Q-T Interval 382 ms QTC Calculation(Bazett) 509 ms P [place] 52 degrees R [place] -18 degrees T [place] 62 degrees Sinus tachycardia Nonspecific T wave abnormality Prolonged QT Abnormal ECG When compared with ECG of 06-JUL-2018 10:28, Nonspecific T wave abnormality, improved in Anterior leads QT has lengthened Confirmed by MD GENAO YOCHAI ([id number]) on 07/09/2018 6:44:32 AM Procedure Note Interface, External Ris In - 07/09/2018 6:44 AM CDT Ventricular Rate 107 BPM Atrial Rate 107 BPM P-R Interval 154 ms QRS Duration 104 ms Q-T Interval 382 ms QTC Calculation(Bazett) 509 ms P [place] 52 degrees R [place] -18 degrees T [place] 62 degrees Sinus tachycardia Nonspecific T wave abnormality Prolonged QT Abnormal ECG When compared with ECG of 06-JUL-2018 10:28, Nonspecific T wave abnormality, improved in Anterior leads QT has lengthened Confirmed by MD GENAO YOCHAI ([id number]) on 07/09/2018 6:44:32 AM Performing Organization Address City/State/Zipcode Phone Number [email or web address] Blood gas, arterial (07/06/2018 4:26 PM CDT)Only the most recent of6 resultswithin the time period is included. pH, Arterial 7.46 (H) 7.35 - 7.45 [facility] pCO2, Arterial 42 35 - 45 mmHg [facility] pO2, Arterial 63 (L) 80 - 90 mmHg [facility] O2 Sat, Arterial 93.1 (L) 96.0 - 97.0 % [facility] HCO3, Arterial 29 21 - 29 mmol/L [facility] Base Excess, Arterial 4.4 (H) -2.0 - 3.0 mmol/L [facility] Patient Temperature 37.0 C [facility] FIO2 32.0 % [facility] Specimen Blood, Arterial Performing Organization Address City/[facility]/Zipcode Phone Number [address] [address] [place] Hepatic function panel (07/05/2018 5:16 PM CDT)Only the most recent of2 resultswithin the time period is included. Protein, Total 6.2 6.0 - 8.3 gm/dL [facility] Albumin 3.2 (L) 3.5 - 5.0 g/dL [facility] Total Bilirubin 0.7 0.2 - 1.2 mg/dL [facility] Bilirubin, Direct 0.5 0.1 - 0.5 mg/dL [facility] Alkaline Phosphatase 84 40 - 150 U/L [facility] AST 16 5 - 34 U/L [facility] ALT 9 6 - 55 U/L [facility] Specimen Blood Performing Organization Address [facility]/Zipcode Phone Number [address] [address] [place] Potassium (07/03/2018 10:03 AM CDT) Potassium 4.3 3.5 - 5.1 meq/L [facility] Specimen Blood Narrative Performed At Check Serum Potassium level 30 minutes after [facility] IV potassium replacement completed. Performing Organization Address City/State/Zipcode Phone Number [address] [address] [place] XR abdomen / KUB 1 view (07/03/2018 [...] MD Report Verified Date/Time:07/03/2018 06:21:16 Reading Location: [facility] C013 Transitional Reading Room Procedure Note Interface, External [...] Report Verified Date/Time: 07/03/2018 06:21:16 Reading Location: [facility] C013T Transitional Reading Room Performing Organization Address City/State/Zipcode Phone Number [facility] Oxygen saturation, measured (07/02/2018 10:46 AM CDT)Only the most recent of3 resultswithin the time period is included. O2 Saturation (Measured) 50.1 % [facility] Specimen Blood Performing Organization Address City/[facility]/Zipcode Phone Number [address] [address] CENTER CBC with platelet count + automated diff (07/02/2018 4:09 AM CDT)Only the most recent of6 resultswithin the time period is included. WBC 7.9 3.5 - 10.5 K/L [facility] RBC 2.83 (L) 3.93 - 5.22 M/L [facility] Hemoglobin 8.6 (L) 11.2 - 15.7 GM/DL [facility] Hematocrit 28.4 (L) 34.1 - 44.9 % [facility] MCV 100.4 (H) 79.4 - 94.8 fL [facility] MCH 30.4 25.6 - 32.2 pg [facility] MCHC 30.3 (L) 32.2 - 35.5 GM/DL [facility] RDW 17.9 (H) 11.7 - 14.4 % [facility] Platelets 222 150 - 450 K/CU MM [facility] MPV 9.9 9.4 - 12.3 fL [facility] nRBC 0 0 - 0 /100 WBC [facility] % Neutros 85 % [facility] % Lymphs 6 % [facility] % Monos 8 % [facility] % Eos 1 % [facility] % Baso 0 % [facility] # Neutros 6.67 (H) 1.56 - 6.13 K/L [facility] # Lymphs 0.46 (L) 1.18 - 3.74 K/L [facility] # Monos 0.64 (H) 0.24 - 0.36 K/L [facility] # Eos 0.06 0.04 - 0.36 K/L [facility] # Baso 0.02 0.01 - 0.08 K/L [facility] Immature 1 0 - 1 % [facility] Granulocytes-[facility] Specimen Blood Performing Organization Address City/State/Zipcode Phone Number [facility] [address] [place] [address] [phone] CENTER ECHOCARDIOGRAM REPORT - SCAN (06/30/2018 9:22 PM CDT) Narrative Performed At 2D Echo W/Doppler(CW/PW/Color) (06/30/2018 8:36 AM CDT) Ejection Fraction [facility] Specimen Narrative Performed At Transthoracic Echocardiography Report (TTE) [facility] Demographics Patient Name DANA, Date of Study 06/30/2018 DURGA [id number] GenderFemale Visit Number [id number] Black [id number] Room Number 2C52 Number Date of Birth1945Referring Physician Malathi Flanagan Age72 year(s)Centrifugal Supervisor Fela Antunez [facility] AnalystIzolddivya [place] InterpretingJaime Smiley MD [place] Physician Procedure Type of [...] Study 06/30/2018 DURGA Gender Female Visit Number [id number] Race Black Room Number 2C52 Number Date of 1945 Referring Physician Malathi Flanagan Age 72 year(s) Centrifugal Supervisor Fela Antunez, CS Criminal Justice Teacher MD Jessika Hare Physician Procedure Type of Study TTE procedure:2DECHO [...] TR Gradient: 54.51 mmHg Performing Organization Address City/State/Zipcode Phone Number [facility] Lactic Acid, Arterial (06/30/2018 4:33 AM CDT)Only the most recent of2 resultswithin the time period is included. Lactate, Art 1.0 0.5 - 2.2 mmol/L [facility] Specimen Blood, Arterial Performing Organization Address [facility]/[place] Phone Number [address] [phone] CENTER B-type Natriuretic Factor (BNP) (06/30/2018 3:10 AM CDT)Only the most recent of2 resultswithin the time period is included. BNP 14,363 (H) 0 - 100 pg/mL [facility] Specimen Blood Performing Organization Address [facility] Phone Number [address] [phone] CENTER Prepare RBC (06/30/2018 1:27 AM CDT) CROSSMATCH COMPATIBLE SAFETRACE TX Unit ABO A Pos SAFETRACE TX UNIT NUMBER [id number] SAFETRACE TX Status RETURNED FROM ISSUE SAFETRACE TX Blood Bank Product RED BLOOD CELLS SAFETRACE TX PRODUCT CODE [id number] SAFETRACE TX CROSSMATCH COMPATIBLE SAFETRACE TX Unit ABO A Pos SAFETRACE TX UNIT NUMBER [id number] SAFETRACE TX Status RETURNED FROM ISSUE SAFETRACE TX Blood Bank Product RED BLOOD CELLS SAFETRACE TX PRODUCT CODE [id number] SAFETRACE TX CROSSMATCH COMPATIBLE SAFETRACE TX Unit ABO A Pos SAFETRACE TX UNIT NUMBER [id number] SAFETRACE TX Status RETURNED FROM ISSUE SAFETRACE TX Blood Bank Product RED BLOOD CELLS SAFETRACE TX PRODUCT CODE [id number] SAFETRACE TX CROSSMATCH COMPATIBLE SAFETRACE TX Unit ABO A Pos SAFETRACE TX UNIT NUMBER [id number] SAFETRACE TX Status RETURNED FROM ISSUE SAFETRACE TX Blood Bank Product RED BLOOD CELLS SAFETRACE TX PRODUCT CODE [id number] SAFETRACE TX Specimen Performing Organization Address [facility] Phone Number SAFETRACE TX POC ACTIVATED CLOTTING TIME (06/30/2018 12:52 AM CDT)Only the most recent of4 resultswithin the time period is included. Activated Clotting Time 147Comment: TESTED AT sec [address] [address] Specimen Blood Performing Organization Address [facility]/[place] Phone Number [address] [address] [phone] CENTER Potassium-Stat Lab (06/29/2018 11:07 PM CDT) Potassium 4.4 3.6 - 5.5 meq/L [facility] Specimen Blood, Arterial Performing Organization Address City/[facility]/[place] Phone Number [address] [address] CENTER Sodium Na-Stat Lab (06/29/2018 11:07 PM CDT) Sodium 137 135 - 148 meq/L [facility] Specimen Blood, Arterial Performing Organization Address [facility] Phone Number [address] [address] [place] Glucose-Stat Lab (06/29/2018 11:07 PM CDT) Glucose 97 70 - 110 mg/dL [facility] Specimen Blood, Arterial Performing Organization Address [facility] Phone Number [address] [address] CENTER HGB/HCT (H&H)-Stat Lab (06/29/2018 11:07 PM CDT) Hemoglobin 10.7 (L) 12.0 - 15.0 g/dL [facility] Hematocrit 31.0 (L) 36.0 - 45.0 % [facility] Specimen Blood, Arterial Performing Organization Address [facility] Phone Number [address] [address] [phone] CENTER Filter Ionized Calcium (06/29/2018 11:07 PM CDT) Filter Ionized Calcium 1.14 mmol/L [facility] Specimen Blood Narrative Performed At Reference Range: No Normals [facility] Performing Organization Address City/State/Zipcode Phone Number [facility] [address] [place] [address] CENTER CONOR (06/29/2018 10:41 PM CDT) Narrative Performed [...] Location: OR Requesting Physician: Charles Ayala DO Intubated Sedated Insertion: easy Probe Type: multiplane Modalities: 2D and CFM Valves Annulus Stenosis Area (cm3) Gradient Regurgitation Leaflet Morphology Leaflet Motion Not Visualized Aortic valve none Mitral valve trivial (1+) Tricuspid Ventricles Cavity size Dimension Hypertrophy Thrombus Global FXN EF Right ventricle dilated No severely impaired Left ventricle dilated No severely impaired Pre Intervention Summary: Post Intervention Summary: after 08/23/2017 Insurance Payer Benefit Plan / Subscriber ID Type Phone Address Group [employer]ET[employer] - A[employer]NA MEDICARE xxxxxxxx Formerly [facility] [phone] [address] MEDICARE MGD O POS [id number] [place] [address] Advance Directives For more information, please contact:[address] [phone] Code Status Date Activated Date Inactivated Comments Full Code 06/29/2018 8:48 PM 07/22/2018 8:31 PM This code status was determined by: Patient Full Code 07/18/2017 10:01 AM 08/09/2017 4:37 PM This code status was determined by: Patient Full Code 06/11/2016 8:17 PM 06/15/2016 3:58 PM This code status was determined by: Patient
--- OUTSIDE RECORDS SUMMARY | 2018-08-24 12:29 | XMS REPORT ---
:1945 Author Organization [facility] Address [address] [place] [address] [address]. [address] [place] [address] Care Team Providers Name Role Phone DELILAH [...] (BEAKER) (test 221 mg/dL 70-110 TESTED AT [address] yrrd=5912) [facility] [address] POCT-GLUCOSE [id number] 09:00:00 Test Item Value Reference Range Comments POC-GLUCOSE METER (BEAKER) 135 mg/dL 70-110 TESTED AT [address] (test htwq=4798) [facility] [address] RAD, CHEST, 1 VIEW, NON [id number] 08:57:00Reason for exam:->post opShould this be performed [...] MDRepcamilla Verified Date/Time: 07/22/2018 08:57:17 Reading Location: [address] Neuro Reading Room Electronicallysigned by: TREY ROBLES MD on 07/22/2018 08:57 [id number] 07:51:00 Test Item Value Reference Range Comments PHOSPHORUS (BEAKER) (test yfee=312) 3.9 mg/dL 2.3-4.7 [id number] 07:51:00 Test Item Value Reference Range Comments MAGNESIUM (BEAKER) (test lmdl=202) 1.7 mg/dL 1.6-2.6 BASIC METABOLIC [id number] 07:51:00 Test Item Value Reference Range Comments SODIUM (BEAKER) (test 139 meq/L 136-145 tzdc=098) POTASSIUM (BEAKER) (test 4.4 meq/L 3.5-5.1 tiyz=632) CHLORIDE (BEAKER) (test 102 meq/L 98-107 qzxp=538) CO2 (BEAKER) (test 30 meq/L 22-29 wzrs=430) BLOOD UREA NITROGEN 23 mg/dL 7-21 (BEAKER) (test roxt=431) CREATININE (BEAKER) (test 1.40 mg/dL 0.57-1.25 eqis=653) GLUCOSE RANDOM (BEAKER) 139 mg/dL 70-105 (test xgqt=101) CALCIUM (BEAKER) (test 8.8 mg/dL 8.4-10.2 ajkr=730) EGFR (BEAKER) (test 45 mL/min/1.73 sq m ESTIMATED GFR IS NOT zyoi=8764) ACCURATE CREATININE CLEARANCE IN PREDICTING GLOMERULAR FILTRATION RATE. ESTIMATED GFR IS NOT APPLICABLE FOR DIALYSIS PATIENTS. [id number] 05:36:00 Test Item Value Reference Range Comments PARTIAL THROMBOPLASTIN TIME (BEAKER) (test 44.5 seconds 22.5-36.0 zstn=296) CBC (HEMOGRAM ONLY)2018-07-22 05:24:00 Test Item Value Reference Range Comments WHITE BLOOD CELL COUNT (BEAKER) (test cfal=085) 6.6 K/ L 3.5-10.5 RED BLOOD CELL COUNT (BEAKER) (test qdgh=109) 2.45 M/ L 3.93-5.22 HEMOGLOBIN (BEAKER) (test ihxy=313) 7.7 GM/DL 11.2-15.7 HEMATOCRIT (BEAKER) (test gkkv=911) 26.1 % 34.1-44.9 MEAN CORPUSCULAR VOLUME (BEAKER) (test bwmi=445) 106.5 fL 79.4-94.8 MEAN CORPUSCULAR HEMOGLOBIN (BEAKER) (test 31.4 pg 25.6-32.2 hccq=661) MEAN CORPUSCULAR HEMOGLOBIN CONC (BEAKER) (test 29.5 GM/DL 32.2-35.5 ezau=898) RED CELL DISTRIBUTION WIDTH (BEAKER) (test 18.0 % 11.7-14.4 ahmt=908) PLATELET COUNT (BEAKER) (test qtoz=444) 227 K/CU MM 150-450 MEAN PLATELET VOLUME (BEAKER) (test mzlq=038) 10.0 fL 9.4-12.3 NUCLEATED RED BLOOD CELLS (BEAKER) (test 0 /100 WBC 0-0 jogj=678) POCT-GLUCOSE [id number] 21:36:00 Test Item Value Reference Range Comments POC-GLUCOSE METER (BEAKER) 283 mg/dL 70-110 TESTED AT [address] (test mmac=6149) [place] [id number] POCT-GLUCOSE [id number] 18:26:00 Test Item Value Reference Range Comments POC-GLUCOSE METER (BEAKER) 123 mg/dL 70-110 TESTED AT [address] (test khry=3941) [place] [id number] POCT-GLUCOSE [id number] 14:04:00 Test Item Value Reference Range Comments POC-GLUCOSE METER (BEAKER) 152 mg/dL 70-110 TESTED AT [address] (test hpnl=8562) [place] [id number] POCT-GLUCOSE [id number] 12:52:00 Test Item Value Reference Range Comments POC-GLUCOSE METER (BEAKER) 228 mg/dL 70-110 TESTED AT [address] (test mnvi=0286) [facility] [address] RAD, CHEST, 1 VIEW, NON [id number] 09:40:00Reason for exam:->post opShould this be performed at the bedside?->YesFINAL REPORT Comparison: 07/20/2018 TECHNIQUE: Single view of the chest FINDINGS: There are nonspecific prominent interstitial markings bilaterally. Trace pleural effusions are seen. No gross new lung parenchymal changes. Cardiac silhouette is enlarged. Thoracic aortic stent grafts noted. Right-sided PICC line is stable. Signed: Olayinka Hampton MDReport Verified Date/Time: 07/21/2018 09: 40:18 Reading Location: [facility] Radiology Reading Room POCT-GLUCOSE [id number] 09:10: 00 Test Item Value Reference Range Comments POC-GLUCOSE METER (BEAKER) 239 mg/dL 70-110 TESTED AT [facility] [address] [facility] (test crhl=5477) [facility] [address] [id number] 06:51:00 Test Item Value Reference Range Comments PHOSPHORUS (BEAKER) (test xwxq=038) 3.4 mg/dL 2.3-4.7 [id number] 06:51:00 Test Item Value Reference Range Comments MAGNESIUM (BEAKER) (test xfrp=130) 1.8 mg/dL 1.6-2.6 BASIC METABOLIC [id number] 06:51:00 Test Item Value Reference Range Comments SODIUM (BEAKER) (test 137 meq/L 136-145 widn=145) POTASSIUM (BEAKER) (test 4.4 meq/L 3.5-5.1 crur=102) CHLORIDE (BEAKER) (test 100 meq/L 98-107 nyzd=386) CO2 (BEAKER) (test 31 meq/L 22-29 wmbb=420) BLOOD UREA NITROGEN 23 mg/dL 7-21 (BEAKER) (test wgxm=258) CREATININE (BEAKER) (test 1.40 mg/dL 0.57-1.25 pmht=519) GLUCOSE RANDOM (BEAKER) 146 mg/dL 70-105 (test kkgy=618) CALCIUM (BEAKER) (test 9.2 mg/dL 8.4-10.2 qcin=768) EGFR (BEAKER) (test 45 mL/min/1.73 sq m ESTIMATED GFR IS NOT vies=8452) ACCURATE CREATININE CLEARANCE IN PREDICTING GLOMERULAR FILTRATION RATE. ESTIMATED GFR IS NOT APPLICABLE FOR DIALYSIS PATIENTS. [id number] 06:47:00 Test Item Value Reference Range Comments PARTIAL THROMBOPLASTIN TIME (BEAKER) (test 51.7 seconds 22.5-36.0 moaj=470) CBC (HEMOGRAM ONLY)2018-07-21 06:28:00 Test Item Value Reference Range Comments WHITE BLOOD CELL COUNT (BEAKER) (test yrvl=624) 5.4 K/ L 3.5-10.5 RED BLOOD CELL COUNT (BEAKER) (test hgjp=610) 2.66 M/ L 3.93-5.22 HEMOGLOBIN (BEAKER) (test tmpx=725) 8.2 GM/DL 11.2-15.7 HEMATOCRIT (BEAKER) (test miyz=988) 28.3 % 34.1-44.9 MEAN CORPUSCULAR VOLUME (BEAKER) (test foxl=564) 106.4 fL 79.4-94.8 MEAN CORPUSCULAR HEMOGLOBIN (BEAKER) (test 30.8 pg 25.6-32.2 ebkh=631) MEAN CORPUSCULAR HEMOGLOBIN CONC (BEAKER) (test 29.0 GM/DL 32.2-35.5 cgtc=235) RED CELL DISTRIBUTION WIDTH (BEAKER) (test 18.3 % 11.7-14.4 hmjv=609) PLATELET COUNT (BEAKER) (test wcmh=055) 211 K/CU MM 150-450 MEAN PLATELET VOLUME (BEAKER) (test pghl=279) 10.3 fL 9.4-12.3 NUCLEATED RED BLOOD CELLS (BEAKER) (test 0 /100 WBC 0-0 ltzq=865) POCT-GLUCOSE [id number] 21:18:00 Test Item Value Reference Range Comments POC-GLUCOSE METER (BEAKER) 245 mg/dL 70-110 TESTED AT [address] (test cqsz=9397) [facility] [address] POCT-GLUCOSE [id number] 18:12:00 Test Item Value Reference Range Comments POC-GLUCOSE METER (BEAKER) 158 mg/dL 70-110 TESTED AT [address] (test rgxm=4238) [facility] [address] POCT-GLUCOSE [id number] 12:46:00 Test Item Value Reference Range Comments POC-GLUCOSE METER (BEAKER) 178 mg/dL 70-110 TESTED AT [address] (test clcn=4659) [facility] [address] RAD, CHEST, 1 VIEW, NON [id number] 08:43:00Reason for exam:->post opShould this be performed [...] Reading Location: [facility] Radiology Reading Room POCT-GLUCOSE [id number] 08:05:00 Test Item Value Reference Range Comments POC-GLUCOSE METER (BEAKER) 114 mg/dL 70-110 TESTED AT [facility] [address] [facility] (test qacd=2100) [facility] [address] [id number] 06:55:00 Test Item Value Reference Range Comments PHOSPHORUS (BEAKER) (test qmmz=361) 3.4 mg/dL 2.3-4.7 [id number] 06:55:00 Test Item Value Reference Range Comments MAGNESIUM (BEAKER) (test qohg=966) 1.5 mg/dL 1.6-2.6 BASIC METABOLIC [id number] 06:55:00 Test Item Value Reference Range Comments SODIUM (BEAKER) (test 137 meq/L 136-145 safv=355) POTASSIUM (BEAKER) (test 4.4 meq/L 3.5-5.1 zaps=951) CHLORIDE (BEAKER) (test 101 meq/L 98-107 hkel=531) CO2 (BEAKER) (test 27 meq/L 22-29 ifzl=541) BLOOD UREA NITROGEN 23 mg/dL 7-21 (BEAKER) (test tgzv=861) CREATININE (BEAKER) (test 1.28 mg/dL 0.57-1.25 vjhh=886) GLUCOSE RANDOM (BEAKER) 150 mg/dL 70-105 (test vyea=283) CALCIUM (BEAKER) (test 9.0 mg/dL 8.4-10.2 ovsr=724) EGFR (BEAKER) (test 50 mL/min/1.73 sq m ESTIMATED GFR IS NOT ksig=9015) ACCURATE CREATININE CLEARANCE IN PREDICTING GLOMERULAR FILTRATION RATE. ESTIMATED GFR IS NOT APPLICABLE FOR DIALYSIS PATIENTS. [id number] 06:28:00 Test Item Value Reference Range Comments PARTIAL THROMBOPLASTIN TIME (BEAKER) (test 44.5 seconds 22.5-36.0 jvor=437) CBC (HEMOGRAM ONLY)2018-07-20 06:19:00 Test Item Value Reference Range Comments WHITE BLOOD CELL COUNT (BEAKER) (test pgkt=271) 5.5 K/ L 3.5-10.5 RED BLOOD CELL COUNT (BEAKER) (test efmf=119) 2.58 M/ L 3.93-5.22 HEMOGLOBIN (BEAKER) (test jsaa=040) 7.9 GM/DL 11.2-15.7 HEMATOCRIT (BEAKER) (test daot=658) 27.1 % 34.1-44.9 MEAN CORPUSCULAR VOLUME (BEAKER) (test auhm=497) 105.0 fL 79.4-94.8 MEAN CORPUSCULAR HEMOGLOBIN (BEAKER) (test 30.6 pg 25.6-32.2 pckr=549) MEAN CORPUSCULAR HEMOGLOBIN CONC (BEAKER) (test 29.2 GM/DL 32.2-35.5 bghl=310) RED CELL DISTRIBUTION WIDTH (BEAKER) (test 18.5 % 11.7-14.4 kzfq=589) PLATELET COUNT (BEAKER) (test gfmo=264) 189 K/CU MM 150-450 MEAN PLATELET VOLUME (BEAKER) (test ppiv=748) 9.9 fL 9.4-12.3 NUCLEATED RED BLOOD CELLS (BEAKER) (test 0 /100 WBC 0-0 yjwc=970) POCT-GLUCOSE [id number] 00:43:00 Test Item Value Reference Range Comments POC-GLUCOSE METER (BEAKER) 135 mg/dL 70-110 TESTED AT [address] (test rgcz=7636) [facility] [address] POCT-GLUCOSE [id number] 21:19:00 Test Item Value Reference Range Comments POC-GLUCOSE METER (BEAKER) 284 mg/dL 70-110 TESTED AT [address] (test tfof=4142) [facility] [address] POCT-GLUCOSE [id number] 17:54:00 Test Item Value Reference Range Comments POC-GLUCOSE METER (BEAKER) 146 mg/dL 70-110 TESTED AT [facility] [address] [facility] (test qmka=0405) [facility] [address] POCT-GLUCOSE [id number] 14:15:00 Test Item Value Reference Range Comments POC-GLUCOSE METER (BEAKER) 230 mg/dL 70-110 TESTED AT [place] [id number] [facility] (test sofl=6273) [facility] [address] RAD, CHEST, 1 VIEW, NON [id number] 08:30:00Reason for exam:->post opShould this be performed at the bedside?->YesFINAL REPORT INDICATION: post op COMPARISON:July 18 TECHNIQUE: Chest radiograph, single view, portable technique. FINDINGS / IMPRESSION: Descending aortic stent , enlarged heart shadow, and probable mild venous congestion and edema are again demonstrated. No apical cap or pneumothorax is demonstrated. Probable small right pleural effusion. Right PICC line appears in good position. Signed: eGo Rico MDReport Verified Date/Time: 07/19/2018 08:30:21 Reading Location: [facility] Radiology Reading Room POCT-GLUCOSE [id number] 07:30:00 Test Item Value Reference Range Comments POC-GLUCOSE METER (BEAKER) 177 mg/dL 70-110 TESTED AT [facility] [address] [facility] (test nhhi=0972) [facility] [address] [id number] 05:20:00 Test Item Value Reference Range Comments PHOSPHORUS (BEAKER) (test qmwb=705) 3.5 mg/dL 2.3-4.7 [id number] 05:20:00 Test Item Value Reference Range Comments MAGNESIUM (BEAKER) (test hywx=192) 1.8 mg/dL 1.6-2.6 BASIC METABOLIC [id number] 05:20:00 Test Item Value Reference Range Comments SODIUM (BEAKER) (test 142 meq/L 136-145 kdxp=626) POTASSIUM (BEAKER) (test 4.5 meq/L 3.5-5.1 bgmt=765) CHLORIDE (BEAKER) (test 107 meq/L 98-107 fwvs=061) CO2 (BEAKER) (test 31 meq/L 22-29 oyig=447) BLOOD UREA NITROGEN 25 mg/dL 7-21 (BEAKER) (test igqz=056) CREATININE (BEAKER) (test 1.35 mg/dL 0.57-1.25 edux=269) GLUCOSE RANDOM (BEAKER) 165 mg/dL 70-105 (test grkz=168) CALCIUM (BEAKER) (test 9.1 mg/dL 8.4-10.2 bjlo=796) EGFR (BEAKER) (test 47 mL/min/1.73 sq m ESTIMATED GFR IS NOT heae=7137) ACCURATE CREATININE CLEARANCE IN PREDICTING GLOMERULAR FILTRATION RATE. ESTIMATED GFR IS NOT APPLICABLE FOR DIALYSIS PATIENTS. [id number] 05:17:00 Test Item Value Reference Range Comments PARTIAL THROMBOPLASTIN TIME (BEAKER) (test 44.9 seconds 22.5-36.0 vcvm=138) PROTHROMBIN [id number] 05:16:00 Test Item Value Reference Range Comments PROTIME (BEAKER) (test jkeu=545) 13.9 seconds 11.7-14.7 INR (BEAKER) (test yaqf=028) 1.1 <=5.9 RECOMMENDED COUMADIN/WARFARIN INR THERAPY RANGESSTANDARD DOSE: 2.0 - 3.0 Includes: PROPHYLAXIS forvenous thrombosis, systemic embolization; TREATMENT for venous thrombosis and/or pulmonary embolus.HIGH RISK: Target INR is 2.5-3.5 for patients with mechanical heart valves.CBC (HEMOGRAM ONLY)2018-07-19 05:02:00 Test Item Value Reference Range Comments WHITE BLOOD CELL COUNT (BEAKER) (test gafw=999) 6.3 K/ L 3.5-10.5 RED BLOOD CELL COUNT (BEAKER) (test tskw=295) 2.59 M/ L 3.93-5.22 HEMOGLOBIN (BEAKER) (test xjzu=371) 8.1 GM/DL 11.2-15.7 HEMATOCRIT (BEAKER) (test ngjk=154) 27.6 % 34.1-44.9 MEAN CORPUSCULAR VOLUME (BEAKER) (test ytpm=697) 106.6 fL 79.4-94.8 MEAN CORPUSCULAR HEMOGLOBIN (BEAKER) (test 31.3 pg 25.6-32.2 uouk=415) MEAN CORPUSCULAR HEMOGLOBIN CONC (BEAKER) (test 29.3 GM/DL 32.2-35.5 olbq=242) RED CELL DISTRIBUTION WIDTH (BEAKER) (test 18.6 % 11.7-14.4 kyih=881) PLATELET COUNT (BEAKER) (test zeqf=055) 186 K/CU MM 150-450 MEAN PLATELET VOLUME (BEAKER) (test xjfi=577) 9.7 fL 9.4-12.3 NUCLEATED RED BLOOD CELLS (BEAKER) (test 0 /100 WBC 0-0 nliy=244) POCT-GLUCOSE [id number] 23:14:00 Test Item Value Reference Range Comments POC-GLUCOSE METER (BEAKER) 173 mg/dL 70-110 TESTED AT [address] (test ahgd=1982) [place] [id number] POCT-GLUCOSE [id number] 21:47:00 Test Item Value Reference Range Comments POC-GLUCOSE METER (BEAKER) 237 mg/dL 70-110 TESTED AT [address] (test sdlw=1438) [place] [address] POCT-GLUCOSE [id number] 18:16:00 Test Item Value Reference Range Comments POC-GLUCOSE METER (BEAKER) 234 mg/dL 70-110 TESTED AT [address] (test shox=1630) [place] [address] POCT-GLUCOSE [id number] 08:34:00 Test Item Value Reference Range Comments POC-GLUCOSE METER (BEAKER) 127 mg/dL 70-110 TESTED AT [address] (test pife=3879) [place] [address] RAD, CHEST, 1 VIEW, NON [id number] 08:16:00Reason for exam:->post opShould this be performed [...] MDReport Verified Date/Time: 07/18/2018 08:16:56 [facility] Radiology Reading Room 08: 16 AMCBC (HEMOGRAM ONLY)2018-07-18 04:48:00 Test Item Value Reference Range Comments WHITE BLOOD CELL COUNT (BEAKER) (test ztvm=190) 7.8 K/ L 3.5-10.5 RED BLOOD CELL COUNT (BEAKER) (test uifp=371) 2.64 M/ L 3.93-5.22 HEMOGLOBIN (BEAKER) (test mrod=342) 8.1 GM/DL 11.2-15.7 HEMATOCRIT (BEAKER) (test qbcx=110) 28.1 % 34.1-44.9 MEAN CORPUSCULAR VOLUME (BEAKER) (test rmgv=858) 106.4 fL 79.4-94.8 MEAN CORPUSCULAR HEMOGLOBIN (BEAKER) (test 30.7 pg 25.6-32.2 imea=220) MEAN CORPUSCULAR HEMOGLOBIN CONC (BEAKER) (test 28.8 GM/DL 32.2-35.5 sgex=543) RED CELL DISTRIBUTION WIDTH (BEAKER) (test 18.9 % 11.7-14.4 qdns=161) PLATELET COUNT (BEAKER) (test fprf=783) 197 K/CU MM 150-450 MEAN PLATELET VOLUME (BEAKER) (test hrnp=878) 10.2 fL 9.4-12.3 NUCLEATED RED BLOOD CELLS (BEAKER) (test 0 /100 WBC 0-0 amct=000) [id number] 04:40:00 Test Item Value Reference Range Comments PHOSPHORUS (BEAKER) (test leji=019) 3.6 mg/dL 2.3-4.7 [id number] 04:40:00 Test Item Value Reference Range Comments MAGNESIUM (BEAKER) (test silg=284) 1.8 mg/dL 1.6-2.6 BASIC METABOLIC [id number] 04:40:00 Test Item Value Reference Range Comments SODIUM (BEAKER) (test 140 meq/L 136-145 rxkz=246) POTASSIUM (BEAKER) (test 4.5 meq/L 3.5-5.1 ketr=798) CHLORIDE (BEAKER) (test 106 meq/L 98-107 ikuc=683) CO2 (BEAKER) (test 26 meq/L 22-29 odwe=450) BLOOD UREA NITROGEN 23 mg/dL 7-21 (BEAKER) (test ygfi=895) CREATININE (BEAKER) (test 1.34 mg/dL 0.57-1.25 quav=031) GLUCOSE RANDOM (BEAKER) 105 mg/dL 70-105 (test gnky=178) CALCIUM (BEAKER) (test 9.1 mg/dL 8.4-10.2 qfbb=767) EGFR (BEAKER) (test 47 mL/min/1.73 sq m ESTIMATED GFR IS NOT heow=9753) ACCURATE CREATININE CLEARANCE IN PREDICTING GLOMERULAR FILTRATION RATE. ESTIMATED GFR IS NOT APPLICABLE FOR DIALYSIS PATIENTS. [id number] 04:22:00 Test Item Value Reference Range Comments PARTIAL THROMBOPLASTIN TIME (BEAKER) (test 56.8 seconds 22.5-36.0 lodb=320) PROTHROMBIN [id number] 04:20:00 Test Item Value Reference Range Comments PROTIME (BEAKER) (test bsgb=459) 13.9 seconds 11.7-14.7 INR (BEAKER) (test jcmh=469) 1.0 <=5.9 RECOMMENDED COUMADIN/WARFARIN INR THERAPY RANGESSTANDARD DOSE: 2.0 - 3.0 Includes: PROPHYLAXIS forvenous thrombosis, systemic embolization; TREATMENT for venous thrombosis and/or pulmonary embolus.HIGH RISK: Target INR is 2.5-3.5 for patients with mechanical heart valves.POCT-GLUCOSE [id number] 20:54:00 Test Item Value Reference Range Comments POC-GLUCOSE METER (BEAKER) 311 mg/dL 70-110 Patient on insulin Drip/TESTED (test ilkv=0966) AT [place] [id number] [facility] [address] POCT-GLUCOSE [id number] 18:21:00 Test Item Value Reference Range Comments POC-GLUCOSE METER (BEAKER) 186 mg/dL 70-110 TESTED AT [address] (test wzfs=9171) [facility] [address] POCT-GLUCOSE [id number] 13:16:00 Test Item Value Reference Range Comments POC-GLUCOSE METER (BEAKER) 153 mg/dL 70-110 TESTED AT [address] (test ping=9460) [facility] [address] POCT-GLUCOSE [id number] 09:26:00 Test Item Value Reference Range Comments POC-GLUCOSE METER (BEAKER) 128 mg/dL 70-110 TESTED AT [facility] [address] [facility] (test mten=2277) [facility] [address] RAD, CHEST, 1 VIEW, NON [id number] 07:39:00Reason for exam:->post opShould this be performed [...] Reading Location: [facility] [address] [facility] Radiology Reading Room Electronically signed by: AZUL SAM M.D.on 07/17/2018 07:39 [id number] 06:22:00 Test Item Value Reference Range Comments PHOSPHORUS (BEAKER) (test egku=160) 3.6 mg/dL 2.3-4.7 [id number] 06:22:00 Test Item Value Reference Range Comments MAGNESIUM (BEAKER) (test eruc=617) 1.9 mg/dL 1.6-2.6 BASIC METABOLIC [id number] 06:22:00 Test Item Value Reference Range Comments SODIUM (BEAKER) (test 142 meq/L 136-145 rqht=617) POTASSIUM (BEAKER) (test 4.6 meq/L 3.5-5.1 rqfp=656) CHLORIDE (BEAKER) (test 106 meq/L 98-107 odiu=849) CO2 (BEAKER) (test 30 meq/L 22-29 qqxz=079) BLOOD UREA NITROGEN 23 mg/dL 7-21 (BEAKER) (test zoyd=816) CREATININE (BEAKER) (test 1.31 mg/dL 0.57-1.25 txqw=315) GLUCOSE RANDOM (BEAKER) 88 mg/dL 70-105 (test zpvf=544) CALCIUM (BEAKER) (test 8.9 mg/dL 8.4-10.2 tmhn=627) EGFR (BEAKER) (test 49 mL/min/1.73 sq m ESTIMATED GFR IS NOT urck=6725) ACCURATE CREATININE CLEARANCE IN PREDICTING GLOMERULAR FILTRATION RATE. ESTIMATED GFR IS NOT APPLICABLE FOR DIALYSIS PATIENTS. [id number] 05:10:00 Test Item Value Reference Range Comments PARTIAL THROMBOPLASTIN TIME (BEAKER) (test 52.0 seconds 22.5-36.0 whkv=740) PROTHROMBIN [id number] 05:09:00 Test Item Value Reference Range Comments PROTIME (BEAKER) (test nlkd=780) 14.3 seconds 11.7-14.7 INR (BEAKER) (test mitn=718) 1.1 <=5.9 RECOMMENDED COUMADIN/WARFARIN INR THERAPY RANGESSTANDARD DOSE: 2.0 - 3.0 Includes: PROPHYLAXIS forvenous thrombosis, systemic embolization; TREATMENT for venous thrombosis and/or pulmonary embolus.HIGH RISK: Target INR is 2.5-3.5 for patients with mechanical heart valves.CBC (HEMOGRAM ONLY)2018-07-17 04:55:00 Test Item Value Reference Range Comments WHITE BLOOD CELL COUNT (BEAKER) (test txjr=893) 7.5 K/ L 3.5-10.5 RED BLOOD CELL COUNT (BEAKER) (test drok=767) 2.63 M/ L 3.93-5.22 HEMOGLOBIN (BEAKER) (test aeum=371) 8.1 GM/DL 11.2-15.7 HEMATOCRIT (BEAKER) (test bfkn=778) 27.7 % 34.1-44.9 MEAN CORPUSCULAR VOLUME (BEAKER) (test paew=721) 105.3 fL 79.4-94.8 MEAN CORPUSCULAR HEMOGLOBIN (BEAKER) (test 30.8 pg 25.6-32.2 ssze=873) MEAN CORPUSCULAR HEMOGLOBIN CONC (BEAKER) (test 29.2 GM/DL 32.2-35.5 dlkz=704) RED CELL DISTRIBUTION WIDTH (BEAKER) (test 18.9 % 11.7-14.4 axzd=061) PLATELET COUNT (BEAKER) (test gtjk=183) 215 K/CU MM 150-450 MEAN PLATELET VOLUME (BEAKER) (test skmi=447) 10.2 fL 9.4-12.3 NUCLEATED RED BLOOD CELLS (BEAKER) (test 0 /100 WBC 0-0 xdzh=602) POCT-GLUCOSE [id number] 21:30:00 Test Item Value Reference Range Comments POC-GLUCOSE METER (BEAKER) 217 mg/dL 70-110 TESTED AT [address] (test gvox=1500) [place] [id number] POCT-GLUCOSE [id number] 18:00:00 Test Item Value Reference Range Comments POC-GLUCOSE METER (BEAKER) 192 mg/dL 70-110 TESTED AT [address] (test sknp=7991) [place] [id number] POCT-GLUCOSE [id number] 14:32:00 Test Item Value Reference Range Comments POC-GLUCOSE METER (BEAKER) 203 mg/dL 70-110 TESTED AT [address] (test mkfa=3093) [place] [id number] POCT-GLUCOSE [id number] 09:41:00 Test Item Value Reference Range Comments POC-GLUCOSE METER (BEAKER) 113 mg/dL 70-110 TESTED AT [address] (test sajy=4292) [place] [id number] 08:49:00 Test Item Value Reference Range Comments PHOSPHORUS (BEAKER) (test jdos=083) 3.9 mg/dL 2.3-4.7 [id number] 08:49:00 Test Item Value Reference Range Comments MAGNESIUM (BEAKER) (test kwht=040) 2.0 mg/dL 1.6-2.6 BASIC METABOLIC [id number] 08:49:00 Test Item Value Reference Range Comments SODIUM (BEAKER) (test 142 meq/L 136-145 qgds=893) POTASSIUM (BEAKER) (test 4.5 meq/L 3.5-5.1 hlfa=777) CHLORIDE (BEAKER) (test 105 meq/L 98-107 hwfx=522) CO2 (BEAKER) (test 30 meq/L 22-29 zzdi=681) BLOOD UREA NITROGEN 24 mg/dL 7-21 (BEAKER) (test smfu=837) CREATININE (BEAKER) (test 1.25 mg/dL 0.57-1.25 atbp=065) GLUCOSE RANDOM (BEAKER) 80 mg/dL 70-105 (test laij=424) CALCIUM (BEAKER) (test 8.8 mg/dL 8.4-10.2 lmbk=321) EGFR (BEAKER) (test 51 mL/min/1.73 sq m ESTIMATED GFR IS NOT kwgn=0049) ACCURATE CREATININE CLEARANCE IN PREDICTING GLOMERULAR FILTRATION RATE. ESTIMATED GFR IS NOT APPLICABLE FOR DIALYSIS PATIENTS. RAD, CHEST, 1 VIEW, NON [id number] 08:09:00Reason for exam:->post opShould this be performed [...] Lopez Verified Date/Time: 07/16/2018 08:09:34 Reading Location: [address] Body Reading Room 08: 09 AMPROTHROMBIN [id number] 05:46:00 Test Item Value Reference Range Comments PROTIME (BEAKER) (test vzql=104) 14.0 seconds 11.7-14.7 INR (BEAKER) (test upud=811) 1.1 <=5.9 RECOMMENDED COUMADIN/WARFARIN INR THERAPY RANGESSTANDARD DOSE: 2.0 - 3.0 Includes: PROPHYLAXIS forvenous thrombosis, systemic embolization; TREATMENT for venous thrombosis and/or pulmonary embolus.HIGH RISK: Target INR is 2.5-3.5 for patients with mechanical heart valves.[id number] 05:46:00 Test Item Value Reference Range Comments PARTIAL THROMBOPLASTIN TIME (BEAKER) (test 54.5 seconds 22.5-36.0 nxpo=250) CBC (HEMOGRAM ONLY)2018-07-16 05:33:00 Test Item Value Reference Range Comments WHITE BLOOD CELL COUNT (BEAKER) (test kvau=271) 6.6 K/ L 3.5-10.5 RED BLOOD CELL COUNT (BEAKER) (test ehgo=046) 2.75 M/ L 3.93-5.22 HEMOGLOBIN (BEAKER) (test uufh=416) 8.5 GM/DL 11.2-15.7 HEMATOCRIT (BEAKER) (test hjok=547) 28.5 % 34.1-44.9 MEAN CORPUSCULAR VOLUME (BEAKER) (test mdok=673) 103.6 fL 79.4-94.8 MEAN CORPUSCULAR HEMOGLOBIN (BEAKER) (test 30.9 pg 25.6-32.2 liym=809) MEAN CORPUSCULAR HEMOGLOBIN CONC (BEAKER) (test 29.8 GM/DL 32.2-35.5 jjmc=020) RED CELL DISTRIBUTION WIDTH (BEAKER) (test 19.1 % 11.7-14.4 llki=278) PLATELET COUNT (BEAKER) (test pjim=846) 240 K/CU MM 150-450 MEAN PLATELET VOLUME (BEAKER) (test wxez=175) 10.1 fL 9.4-12.3 NUCLEATED RED BLOOD CELLS (BEAKER) (test 0 /100 WBC 0-0 rvdj=611) POCT-GLUCOSE [id number] 21:14:00 Test Item Value Reference Range Comments POC-GLUCOSE METER (BEAKER) 152 mg/dL 70-110 TESTED AT [address] (test siol=6715) [facility] [address] POCT-GLUCOSE [id number] 19:03:00 Test Item Value Reference Range Comments POC-GLUCOSE METER (BEAKER) 173 mg/dL 70-110 TESTED AT [address] (test uvqb=5704) [facility] [id number] POCT-GLUCOSE [id number] 13:33:00 Test Item Value Reference Range Comments POC-GLUCOSE METER (BEAKER) 274 mg/dL 70-110 TESTED AT [address] (test bimt=1349) [facility] [address] POCT-GLUCOSE [id number] 10:28:00 Test Item Value Reference Range Comments POC-GLUCOSE METER (BEAKER) 131 mg/dL 70-110 TESTED AT [place] [id number] [facility] (test batx=0927) [facility] [address] POCT-GLUCOSE [id number] 06:41:00 Test Item Value Reference Range Comments POC-GLUCOSE METER (BEAKER) 152 mg/dL 70-110 TESTED AT [place] [id number] [facility] (test ixuj=2985) [facility] [address] [id number] 04:02:00 Test Item Value Reference Range Comments PHOSPHORUS (BEAKER) (test qgfh=367) 3.6 mg/dL 2.3-4.7 [id number] 04:02:00 Test Item Value Reference Range Comments MAGNESIUM (BEAKER) (test demb=406) 2.1 mg/dL 1.6-2.6 BASIC METABOLIC [id number] 04:02:00 Test Item Value Reference Range Comments SODIUM (BEAKER) (test 135 meq/L 136-145 ynyl=251) POTASSIUM (BEAKER) (test 4.6 meq/L 3.5-5.1 lsjn=594) CHLORIDE (BEAKER) (test 101 meq/L 98-107 eibr=628) CO2 (BEAKER) (test 27 meq/L 22-29 eksr=384) BLOOD UREA NITROGEN 23 mg/dL 7-21 (BEAKER) (test iytb=852) CREATININE (BEAKER) (test 1.37 mg/dL 0.57-1.25 jlub=896) GLUCOSE RANDOM (BEAKER) 187 mg/dL 70-105 (test tshh=237) CALCIUM (BEAKER) (test 8.4 mg/dL 8.4-10.2 sdgd=262) EGFR (BEAKER) (test 46 mL/min/1.73 sq m ESTIMATED GFR IS NOT fqte=4077) ACCURATE CREATININE CLEARANCE IN PREDICTING GLOMERULAR FILTRATION RATE. ESTIMATED GFR IS NOT APPLICABLE FOR DIALYSIS PATIENTS. [id number] 03:57:00 Test Item Value Reference Range Comments PARTIAL THROMBOPLASTIN TIME (BEAKER) (test 44.5 seconds 22.5-36.0 myfd=049) PROTHROMBIN TIME/[id number] 03:56:00 Test Item Value Reference Range Comments PROTIME (BEAKER) (test agns=730) 13.4 seconds 11.7-14.7 INR (BEAKER) (test jqsp=002) 1.0 <=5.9 RECOMMENDED COUMADIN/WARFARIN INR THERAPY RANGESSTANDARD DOSE: 2.0 - 3.0 Includes: PROPHYLAXIS forvenous thrombosis, systemic embolization; TREATMENT for venous thrombosis and/or pulmonary embolus.HIGH RISK: Target INR is 2.5-3.5 for patients with mechanical heart valves.RAD, CHEST, 1 VIEW, NON [id number] 03:40:00Reason for exam:->post opShould this be [...] MDReport Verified Date/Time: 07/15/2018 03:40:13 Reading Location: [address] Neuro Reading Room 03: 40 [facility] (HEMOGRAM ONLY)2018-07-15 03:33:00 Test Item Value Reference Range Comments WHITE BLOOD CELL COUNT (BEAKER) (test cdnn=257) 7.2 K/ L 3.5-10.5 RED BLOOD CELL COUNT (BEAKER) (test jucg=160) 2.91 M/ L 3.93-5.22 HEMOGLOBIN (BEAKER) (test rzqi=049) 8.9 GM/DL 11.2-15.7 HEMATOCRIT (BEAKER) (test rljm=571) 30.2 % 34.1-44.9 MEAN CORPUSCULAR VOLUME (BEAKER) (test axaf=955) 103.8 fL 79.4-94.8 MEAN CORPUSCULAR HEMOGLOBIN (BEAKER) (test 30.6 pg 25.6-32.2 ygeu=139) MEAN CORPUSCULAR HEMOGLOBIN CONC (BEAKER) (test 29.5 GM/DL 32.2-35.5 torl=860) RED CELL DISTRIBUTION WIDTH (BEAKER) (test 19.2 % 11.7-14.4 wygd=167) PLATELET COUNT (BEAKER) (test ebxg=553) 217 K/CU MM 150-450 MEAN PLATELET VOLUME (BEAKER) (test ulhw=138) 9.8 fL 9.4-12.3 NUCLEATED RED BLOOD CELLS (BEAKER) (test 0 /100 WBC 0-0 fomk=248) POCT-GLUCOSE [id number] 21:46:00 Test Item Value Reference Range Comments POC-GLUCOSE METER (BEAKER) 263 mg/dL 70-110 TESTED AT [address] (test bqre=4445) [facility] [address] POCT-GLUCOSE [id number] 19:03:00 Test Item Value Reference Range Comments POC-GLUCOSE METER (BEAKER) 178 mg/dL 70-110 TESTED AT [address] (test cbof=9829) [facility] [address] POCT-GLUCOSE [id number] 17:02:00 Test Item Value Reference Range Comments POC-GLUCOSE METER (BEAKER) 126 mg/dL 70-110 TESTED AT [address] (test hatd=6838) [facility] [address] POCT-GLUCOSE [id number] 11:34:00 Test Item Value Reference Range Comments POC-GLUCOSE METER (BEAKER) 202 mg/dL 70-110 TESTED AT [address] (test cyta=4571) [facility] [address] RAD, CHEST, 1 VIEW, NON [id number] 05:46:00Reason for exam:->post opShould this be performed [...] Robles Verified Date/Time: 07/14/2018 05:46:57 Reading Location: [address] Neuro Reading Room [id number] 04:03:00 Test Item Value Reference Range Comments MAGNESIUM (BEAKER) (test 2.2 mg/dL 1.6-2.6 Specimen slightly hemolyzed rcbz=652) [id number] 04:03:00 Test Item Value Reference Range Comments PHOSPHORUS (BEAKER) (test 2.9 mg/dL 2.3-4.7 Specimen slightly hemolyzed pbib=419) BASIC METABOLIC [id number] 04:03:00 Test Item Value Reference Range Comments SODIUM (BEAKER) (test 138 meq/L 136-145 lcdf=318) POTASSIUM (BEAKER) (test 5.0 meq/L 3.5-5.1 Specimen slightly nbfb=647) hemolyzed CHLORIDE (BEAKER) (test 103 meq/L 98-107 lynf=008) CO2 (BEAKER) (test 29 meq/L 22-29 pfwk=749) BLOOD UREA NITROGEN 23 mg/dL 7-21 (BEAKER) (test txxr=854) CREATININE (BEAKER) (test 1.41 mg/dL 0.57-1.25 Specimen slightly pklz=049) hemolyzed GLUCOSE RANDOM (BEAKER) 144 mg/dL 70-105 (test albt=740) CALCIUM (BEAKER) (test 9.1 mg/dL 8.4-10.2 cyud=367) EGFR (BEAKER) (test 45 mL/min/1.73 sq m ESTIMATED GFR IS NOT snji=2341) ACCURATE CREATININE CLEARANCE IN PREDICTING GLOMERULAR FILTRATION RATE. ESTIMATED GFR IS NOT APPLICABLE FOR DIALYSIS PATIENTS. [id number] 03:49:00 Test Item Value Reference Range Comments PARTIAL THROMBOPLASTIN TIME (BEAKER) (test 42.0 seconds 22.5-36.0 voly=679) PROTHROMBIN TIME/[id number] 03:48:00 Test Item Value Reference Range Comments PROTIME (BEAKER) (test zton=523) 14.1 seconds 11.7-14.7 INR (BEAKER) (test qmkj=840) 1.1 <=5.9 RECOMMENDED COUMADIN/WARFARIN INR THERAPY RANGESSTANDARD DOSE: 2.0 - 3.0 Includes: PROPHYLAXIS forvenous thrombosis, systemic embolization; TREATMENT for venous thrombosis and/or pulmonary embolus.HIGH RISK: Target INR is 2.5-3.5 for patients with mechanical heart valves.CBC (HEMOGRAM ONLY)2018-07-14 03:38:00 Test Item Value Reference Range Comments WHITE BLOOD CELL COUNT (BEAKER) (test kgdh=823) 8.1 K/ L 3.5-10.5 RED BLOOD CELL COUNT (BEAKER) (test slpz=102) 2.93 M/ L 3.93-5.22 HEMOGLOBIN (BEAKER) (test kkbg=571) 9.0 GM/DL 11.2-15.7 HEMATOCRIT (BEAKER) (test cxwy=157) 30.6 % 34.1-44.9 MEAN CORPUSCULAR VOLUME (BEAKER) (test poez=163) 104.4 fL 79.4-94.8 MEAN CORPUSCULAR HEMOGLOBIN (BEAKER) (test 30.7 pg 25.6-32.2 feix=156) MEAN CORPUSCULAR HEMOGLOBIN CONC (BEAKER) (test 29.4 GM/DL 32.2-35.5 wuux=202) RED CELL DISTRIBUTION WIDTH (BEAKER) (test 19.6 % 11.7-14.4 ozfp=436) PLATELET COUNT (BEAKER) (test zsnw=391) 252 K/CU MM 150-450 MEAN PLATELET VOLUME (BEAKER) (test rddc=217) 9.7 fL 9.4-12.3 NUCLEATED RED BLOOD CELLS (BEAKER) (test 0 /100 WBC 0-0 jkxh=418) POCT-GLUCOSE [id number] 21:17:00 Test Item Value Reference Range Comments POC-GLUCOSE METER (BEAKER) 168 mg/dL 70-110 TESTED AT [address] (test xulb=6331) [place] [id number] POCT-GLUCOSE [id number] 16:32:00 Test Item Value Reference Range Comments POC-GLUCOSE METER (BEAKER) 267 mg/dL 70-110 TESTED AT [address] (test xmhd=2401) [place] [address] POCT-GLUCOSE [id number] 12:30:00 Test Item Value Reference Range Comments POC-GLUCOSE METER (BEAKER) 213 mg/dL 70-110 TESTED AT [address] (test bvqa=3097) [place] [address] RAD, CHEST, 1 VIEW, NON [id number] 09:17:00Reason for exam:->post opShould this be performed [...] Reading Location: [facility] [address] Radiology ReadingRoom 09 :17 AMDIGOXIN [id number] 09:01:00 Test Item Value Reference Range Comments DIGOXIN LEVEL (BEAKER) (test ndog=635) 0.8 ng/mL 0.8-2.0 Draw before next dose of DigoxinPOCT-GLUCOSE [id number] 08:47:00 Test Item Value Reference Range Comments POC-GLUCOSE METER (BEAKER) 240 mg/dL 70-110 TESTED AT [facility] [address] [place] [address] (test cdzg=8049) [facility] [address] [id number] 04:08:00 Test Item Value Reference Range Comments PHOSPHORUS (BEAKER) (test kzqj=321) 3.5 mg/dL 2.3-4.7 [id number] 04:08:00 Test Item Value Reference Range Comments MAGNESIUM (BEAKER) (test cgud=319) 2.1 mg/dL 1.6-2.6 BASIC METABOLIC [id number] 04:08:00 Test Item Value Reference Range Comments SODIUM (BEAKER) (test 140 meq/L 136-145 nnzf=643) POTASSIUM (BEAKER) (test 4.8 meq/L 3.5-5.1 uolp=968) CHLORIDE (BEAKER) (test 105 meq/L 98-107 lfjf=105) CO2 (BEAKER) (test 28 meq/L 22-29 omrw=315) BLOOD UREA NITROGEN 21 mg/dL 7-21 (BEAKER) (test cixm=598) CREATININE (BEAKER) (test 1.33 mg/dL 0.57-1.25 pzpf=329) GLUCOSE RANDOM (BEAKER) 123 mg/dL 70-105 (test ojin=154) CALCIUM (BEAKER) (test 8.8 mg/dL 8.4-10.2 hqyj=410) EGFR (BEAKER) (test 48 mL/min/1.73 sq m ESTIMATED GFR IS NOT lsdy=1517) ACCURATE CREATININE CLEARANCE IN PREDICTING GLOMERULAR FILTRATION RATE. ESTIMATED GFR IS NOT APPLICABLE FOR DIALYSIS PATIENTS. [id number] 03:51:00 Test Item Value Reference Range Comments PARTIAL THROMBOPLASTIN TIME (BEAKER) (test 43.3 seconds 22.5-36.0 xwmb=648) PROTHROMBIN TIME/[id number] 03:50:00 Test Item Value Reference Range Comments PROTIME (BEAKER) (test ngmf=604) 13.7 seconds 11.7-14.7 INR (BEAKER) (test arvi=276) 1.0 <=5.9 RECOMMENDED COUMADIN/WARFARIN INR THERAPY RANGESSTANDARD DOSE: 2.0 - 3.0 Includes: PROPHYLAXIS forvenous thrombosis, systemic embolization; TREATMENT for venous thrombosis and/or pulmonary embolus.HIGH RISK: Target INR is 2.5-3.5 for patients with mechanical heart valves.CBC (HEMOGRAM ONLY)2018-07-13 03:24:00 Test Item Value Reference Range Comments WHITE BLOOD CELL COUNT (BEAKER) (test etsh=937) 7.5 K/ L 3.5-10.5 RED BLOOD CELL COUNT (BEAKER) (test ljeh=804) 2.94 M/ L 3.93-5.22 HEMOGLOBIN (BEAKER) (test dtop=924) 9.1 GM/DL 11.2-15.7 HEMATOCRIT (BEAKER) (test aikt=156) 30.9 % 34.1-44.9 MEAN CORPUSCULAR VOLUME (BEAKER) (test qunw=472) 105.1 fL 79.4-94.8 MEAN CORPUSCULAR HEMOGLOBIN (BEAKER) (test 31.0 pg 25.6-32.2 xxqi=116) MEAN CORPUSCULAR HEMOGLOBIN CONC (BEAKER) (test 29.4 GM/DL 32.2-35.5 ezhh=739) RED CELL DISTRIBUTION WIDTH (BEAKER) (test 19.8 % 11.7-14.4 pvdv=623) PLATELET COUNT (BEAKER) (test nual=948) 259 K/CU MM 150-450 MEAN PLATELET VOLUME (BEAKER) (test ptwm=090) 9.7 fL 9.4-12.3 NUCLEATED RED BLOOD CELLS (BEAKER) (test 0 /100 WBC 0-0 tyae=707) POCT-GLUCOSE [id number] 22:41:00 Test Item Value Reference Range Comments POC-GLUCOSE METER (BEAKER) 230 mg/dL 70-110 TESTED AT [address] (test rpfy=1728) [place] [id number] POCT-GLUCOSE [id number] 18:56:00 Test Item Value Reference Range Comments POC-GLUCOSE METER (BEAKER) 98 mg/dL 70-110 TESTED AT [address] (test gujr=8015) [facility] [address] POCT-GLUCOSE [id number] 12:04:00 Test Item Value Reference Range Comments POC-GLUCOSE METER (BEAKER) 169 mg/dL 70-110 TESTED AT [address] (test qxxf=7039) [facility] [address] POCT-GLUCOSE [id number] 09:50:00 Test Item Value Reference Range Comments POC-GLUCOSE METER (BEAKER) 260 mg/dL 70-110 TESTED AT [address] (test alkk=4289) [facility] [address] RAD, CHEST, 1 VIEW, NON [id number] 07:18:00Reason for exam:->post opShould this be performed at the bedside?->YesFINAL REPORT AP chest HISTORY: Postoperative. COMPARISON: 07/11/2018. IMPRESSION: Central line unchanged. Cardiomegaly. Thoracic aortic stent graft. Coarse interstitial markings similar to previous. Question developing right basilar atelectasis. No pneumothorax. Signed: Mitchel Jarquin MDReport Verified Date/ Time: 07/12/2018 07:18:25 Reading Location: [facility]iology Reading Room 07: 18 AMPOCT-GLUCOSE [id number] 06:54:00 Test Item Value Reference Range Comments POC-GLUCOSE METER (BEAKER) 193 mg/dL 70-110 TESTED AT [facility] [address] (test gjqf=2934) [place] [address] [id number] 04:51:00 Test Item Value Reference Range Comments PARTIAL THROMBOPLASTIN TIME (BEAKER) (test 42.6 seconds 22.5-36.0 kbil=513) PROTHROMBIN [id number] 04:42:00 Test Item Value Reference Range Comments PROTIME (BEAKER) (test heeo=249) 13.7 seconds 11.7-14.7 INR (BEAKER) (test zqiu=108) 1.0 <=5.9 RECOMMENDED COUMADIN/WARFARIN INR THERAPY RANGESSTANDARD DOSE: 2.0 - 3.0 Includes: PROPHYLAXIS forvenous thrombosis, systemic embolization; TREATMENT for venous thrombosis and/or pulmonary embolus.HIGH RISK: Target INR is 2.5-3.5 for patients with mechanical heart valves.[id number] 04:31:00 Test Item Value Reference Range Comments PHOSPHORUS (BEAKER) (test clvo=643) 2.4 mg/dL 2.3-4.7 [id number] 04:31:00 Test Item Value Reference Range Comments MAGNESIUM (BEAKER) (test ttzx=614) 2.3 mg/dL 1.6-2.6 BASIC METABOLIC [id number] 04:31:00 Test Item Value Reference Range Comments SODIUM (BEAKER) (test 141 meq/L 136-145 dlyp=850) POTASSIUM (BEAKER) (test 4.5 meq/L 3.5-5.1 lfwg=613) CHLORIDE (BEAKER) (test 106 meq/L 98-107 zczv=599) CO2 (BEAKER) (test 31 meq/L 22-29 icwd=811) BLOOD UREA NITROGEN 26 mg/dL 7-21 (BEAKER) (test mhvn=518) CREATININE (BEAKER) (test 1.41 mg/dL 0.57-1.25 hbou=305) GLUCOSE RANDOM (BEAKER) 63 mg/dL 70-105 (test gqra=249) CALCIUM (BEAKER) (test 8.7 mg/dL 8.4-10.2 ztif=635) EGFR (BEAKER) (test 45 mL/min/1.73 sq m ESTIMATED GFR IS NOT uyah=4268) ACCURATE CREATININE CLEARANCE IN PREDICTING GLOMERULAR FILTRATION RATE. ESTIMATED GFR IS NOT APPLICABLE FOR DIALYSIS PATIENTS. CBC (HEMOGRAM ONLY)2018-07-12 04:23:00 Test Item Value Reference Range Comments WHITE BLOOD CELL COUNT (BEAKER) (test eytf=022) 7.0 K/ L 3.5-10.5 RED BLOOD CELL COUNT (BEAKER) (test aezc=338) 2.79 M/ L 3.93-5.22 HEMOGLOBIN (BEAKER) (test mhye=204) 8.6 GM/DL 11.2-15.7 HEMATOCRIT (BEAKER) (test tark=720) 28.3 % 34.1-44.9 MEAN CORPUSCULAR VOLUME (BEAKER) (test awcu=925) 101.4 fL 79.4-94.8 MEAN CORPUSCULAR HEMOGLOBIN (BEAKER) (test 30.8 pg 25.6-32.2 fbov=815) MEAN CORPUSCULAR HEMOGLOBIN CONC (BEAKER) (test 30.4 GM/DL 32.2-35.5 cwmr=191) RED CELL DISTRIBUTION WIDTH (BEAKER) (test 20.2 % 11.7-14.4 styi=510) PLATELET COUNT (BEAKER) (test wipi=323) 276 K/CU MM 150-450 MEAN PLATELET VOLUME (BEAKER) (test suig=556) 10.3 fL 9.4-12.3 NUCLEATED RED BLOOD CELLS (BEAKER) (test 0 /100 WBC 0-0 kohb=830) POCT-GLUCOSE [id number] 00:19:00 Test Item Value Reference Range Comments POC-GLUCOSE METER (BEAKER) 404 mg/dL 70-110 TESTED AT [address] (test qzbw=6064) [facility] [address] POCT-GLUCOSE [id number] 18:10:00 Test Item Value Reference Range Comments POC-GLUCOSE METER (BEAKER) 268 mg/dL 70-110 TESTED AT [address] (test rkqk=2354) [facility] [address] POCT-GLUCOSE [id number] 12:22:00 Test Item Value Reference Range Comments POC-GLUCOSE METER (BEAKER) 221 mg/dL 70-110 TESTED AT [place] [id number] [facility] (test skqk=6917) [facility] [address] RAD, CHEST, 1 VIEW, NON [id number] 07:27:00Reason for exam:->post opShould this be performed [...] Reading Location: [facility] Radiology Reading Room POCT- GLUCOSE [id number] 05:28:00 Test Item Value Reference Range Comments POC-GLUCOSE METER (BEAKER) 166 mg/dL 70-110 TESTED AT [address] (test ffaw=7697) [place] [address] [id number] 04:08:00 Test Item Value Reference Range Comments PHOSPHORUS (BEAKER) (test lgyg=959) 3.0 mg/dL 2.3-4.7 [id number] 04:08:00 Test Item Value Reference Range Comments MAGNESIUM (BEAKER) (test eztu=232) 1.8 mg/dL 1.6-2.6 BASIC METABOLIC [id number] 04:08:00 Test Item Value Reference Range Comments SODIUM (BEAKER) (test 138 meq/L 136-145 jmyb=175) POTASSIUM (BEAKER) (test 4.6 meq/L 3.5-5.1 pcio=386) CHLORIDE (BEAKER) (test 102 meq/L 98-107 qmlt=183) CO2 (BEAKER) (test 29 meq/L 22-29 ckal=927) BLOOD UREA NITROGEN 28 mg/dL 7-21 (BEAKER) (test ptmb=487) CREATININE (BEAKER) (test 1.64 mg/dL 0.57-1.25 cvgr=877) GLUCOSE RANDOM (BEAKER) 196 mg/dL 70-105 (test cepu=236) CALCIUM (BEAKER) (test 8.8 mg/dL 8.4-10.2 jvew=241) EGFR (BEAKER) (test 37 mL/min/1.73 sq m ESTIMATED GFR IS NOT wpzy=6492) ACCURATE CREATININE CLEARANCE IN PREDICTING GLOMERULAR FILTRATION RATE. ESTIMATED GFR IS NOT APPLICABLE FOR DIALYSIS PATIENTS. [id number] 04:06:00 Test Item Value Reference Range Comments PARTIAL THROMBOPLASTIN TIME (BEAKER) (test 51.7 seconds 22.5-36.0 nimt=594) PROTHROMBIN TIME/[id number] 04:05:00 Test Item Value Reference Range Comments PROTIME (BEAKER) (test lvos=988) 14.1 seconds 11.7-14.7 INR (BEAKER) (test vmsg=141) 1.1 <=5.9 RECOMMENDED COUMADIN/WARFARIN INR THERAPY RANGESSTANDARD DOSE: 2.0 - 3.0 Includes: PROPHYLAXIS forvenous thrombosis, systemic embolization; TREATMENT for venous thrombosis and/or pulmonary embolus.HIGH RISK: Target INR is 2.5-3.5 for patients with mechanical heart valves.CBC (HEMOGRAM ONLY)2018-07-11 03:53:00 Test Item Value Reference Range Comments WHITE BLOOD CELL COUNT (BEAKER) (test cpdo=055) 6.3 K/ L 3.5-10.5 RED BLOOD CELL COUNT (BEAKER) (test etgf=464) 2.90 M/ L 3.93-5.22 HEMOGLOBIN (BEAKER) (test comg=765) 8.8 GM/DL 11.2-15.7 HEMATOCRIT (BEAKER) (test jgpu=622) 29.7 % 34.1-44.9 MEAN CORPUSCULAR VOLUME (BEAKER) (test aaeg=236) 102.4 fL 79.4-94.8 MEAN CORPUSCULAR HEMOGLOBIN (BEAKER) (test 30.3 pg 25.6-32.2 bzhm=519) MEAN CORPUSCULAR HEMOGLOBIN CONC (BEAKER) (test 29.6 GM/DL 32.2-35.5 jjfi=635) RED CELL DISTRIBUTION WIDTH (BEAKER) (test 21.0 % 11.7-14.4 drlk=294) PLATELET COUNT (BEAKER) (test riso=352) 270 K/CU MM 150-450 MEAN PLATELET VOLUME (BEAKER) (test immn=832) 10.1 fL 9.4-12.3 NUCLEATED RED BLOOD CELLS (BEAKER) (test 0 /100 WBC 0-0 iute=190) POCT-GLUCOSE [id number] 00:38:00 Test Item Value Reference Range Comments POC-GLUCOSE METER (BEAKER) 198 mg/dL 70-110 TESTED AT [address] (test zzgq=2781) [facility] [address] POCT-GLUCOSE [id number] 18:42:00 Test Item Value Reference Range Comments POC-GLUCOSE METER (BEAKER) 240 mg/dL 70-110 TESTED AT [address] (test sdtu=6473) [facility] [address] POCT-GLUCOSE [id number] 12:48:00 Test Item Value Reference Range Comments POC-GLUCOSE METER (BEAKER) 248 mg/dL 70-110 TESTED AT [address] (test gsbl=8000) [facility] [address] RAD, CHEST, 1 VIEW, NON [id number] 08:53:00Reason for exam:->post opShould this be performed [...] Mckeon Verified Date/Time: 07/10/2018 08:53:53 Reading Location: [address] Reading Room POCT-GLUCOSE [id number] 06:33:00 Test Item Value Reference Range Comments POC-GLUCOSE METER (BEAKER) 129 mg/dL 70-110 TESTED AT [facility] [address] [facility] (test olrt=7718) [facility] [address] POCT-GLUCOSE [id number] 05:36:00 Test Item Value Reference Range Comments POC-GLUCOSE METER (BEAKER) 55 mg/dL 70-110 TESTED AT [place] [id number] [facility] (test kjro=5214) [facility] [address] [id number] 04:15:00 Test Item Value Reference Range Comments PHOSPHORUS (BEAKER) (test ukbl=674) 3.0 mg/dL 2.3-4.7 [id number] 04:15:00 Test Item Value Reference Range Comments MAGNESIUM (BEAKER) (test ugcs=915) 2.0 mg/dL 1.6-2.6 BASIC METABOLIC [id number] 04:15:00 Test Item Value Reference Range Comments SODIUM (BEAKER) (test 138 meq/L 136-145 hojl=055) POTASSIUM (BEAKER) (test 4.5 meq/L 3.5-5.1 hjjd=884) CHLORIDE (BEAKER) (test 103 meq/L 98-107 eunp=367) CO2 (BEAKER) (test 27 meq/L 22-29 bffj=705) BLOOD UREA NITROGEN 32 mg/dL 7-21 (BEAKER) (test zuiy=775) CREATININE (BEAKER) (test 1.55 mg/dL 0.57-1.25 mmop=331) GLUCOSE RANDOM (BEAKER) 121 mg/dL 70-105 (test hnrp=173) CALCIUM (BEAKER) (test 8.8 mg/dL 8.4-10.2 hpac=414) EGFR (BEAKER) (test 40 mL/min/1.73 sq m ESTIMATED GFR IS NOT unba=6013) ACCURATE CREATININE CLEARANCE IN PREDICTING GLOMERULAR FILTRATION RATE. ESTIMATED GFR IS NOT APPLICABLE FOR DIALYSIS PATIENTS. [id number] 03:41:00 Test Item Value Reference Range Comments PARTIAL THROMBOPLASTIN TIME (BEAKER) (test 50.1 seconds 22.5-36.0 izfo=425) PROTHROMBIN [id number] 03:40:00 Test Item Value Reference Range Comments PROTIME (BEAKER) (test evyh=020) 14.6 seconds 11.7-14.7 INR (BEAKER) (test auyv=871) 1.1 <=5.9 RECOMMENDED COUMADIN/WARFARIN INR THERAPY RANGESSTANDARD DOSE: 2.0 - 3.0 Includes: PROPHYLAXIS forvenous thrombosis, systemic embolization; TREATMENT for venous thrombosis and/or pulmonary embolus.HIGH RISK: Target INR is 2.5-3.5 for patients with mechanical heart valves.CBC (HEMOGRAM ONLY)2018-07-10 03:38:00 Test Item Value Reference Range Comments WHITE BLOOD CELL COUNT (BEAKER) (test owob=997) 6.3 K/ L 3.5-10.5 RED BLOOD CELL COUNT (BEAKER) (test vvli=374) 2.47 M/ L 3.93-5.22 HEMOGLOBIN (BEAKER) (test gsme=400) 7.6 GM/DL 11.2-15.7 HEMATOCRIT (BEAKER) (test jezc=594) 26.0 % 34.1-44.9 MEAN CORPUSCULAR VOLUME (BEAKER) (test ktyi=290) 105.3 fL 79.4-94.8 MEAN CORPUSCULAR HEMOGLOBIN (BEAKER) (test 30.8 pg 25.6-32.2 tqkc=698) MEAN CORPUSCULAR HEMOGLOBIN CONC (BEAKER) (test 29.2 GM/DL 32.2-35.5 qzvg=134) RED CELL DISTRIBUTION WIDTH (BEAKER) (test 17.1 % 11.7-14.4 afsj=308) PLATELET COUNT (BEAKER) (test axog=973) 301 K/CU MM 150-450 MEAN PLATELET VOLUME (BEAKER) (test ugle=059) 10.0 fL 9.4-12.3 NUCLEATED RED BLOOD CELLS (BEAKER) (test 0 /100 WBC 0-0 rgmv=821) POCT-GLUCOSE [id number] 00:03:00 Test Item Value Reference Range Comments POC-GLUCOSE METER (BEAKER) 317 mg/dL 70-110 Notified PAULA BERGER/TESTED AT [facility] (test nlad=6074) [address] [facility] [address] POCT-GLUCOSE [id number] 17:44:00 Test Item Value Reference Range Comments POC-GLUCOSE METER (BEAKER) 129 mg/dL 70-110 TESTED AT [address] (test ympy=3051) [facility] [address] POCT-GLUCOSE [id number] 12:13:00 Test Item Value Reference Range Comments POC-GLUCOSE METER (BEAKER) 283 mg/dL 70-110 TESTED AT [address] (test jpyv=2822) [facility] [address] RAD, CHEST, 1 VIEW, NON [id number] 07:35:00Reason for exam:->post opShould this be performed [...] MDReport Verified Date/Time: 07/09/2018 07:35:48 Reading Location: [facility] C013Y CT Body Reading Room POCT-GLUCOSE [id number] 05:13:00 Test Item Value Reference Range Comments POC-GLUCOSE METER (BEAKER) 186 mg/dL 70-110 TESTED AT [address] (test msfx=7604) [facility] [address] [id number] 04:51:00 Test Item Value Reference Range Comments PHOSPHORUS (BEAKER) (test glpk=732) 3.8 mg/dL 2.3-4.7 [id number] 04:51:00 Test Item Value Reference Range Comments MAGNESIUM (BEAKER) (test jgxe=126) 2.1 mg/dL 1.6-2.6 BASIC METABOLIC [id number] 04:51:00 Test Item Value Reference Range Comments SODIUM (BEAKER) (test 138 meq/L 136-145 vgta=169) POTASSIUM (BEAKER) (test 4.9 meq/L 3.5-5.1 xnma=749) CHLORIDE (BEAKER) (test 103 meq/L 98-107 hgxt=523) CO2 (BEAKER) (test 29 meq/L 22-29 mmwu=342) BLOOD UREA NITROGEN 33 mg/dL 7-21 (BEAKER) (test msmd=866) CREATININE (BEAKER) (test 1.78 mg/dL 0.57-1.25 oxow=927) GLUCOSE RANDOM (BEAKER) 155 mg/dL 70-105 (test jjgc=236) CALCIUM (BEAKER) (test 9.0 mg/dL 8.4-10.2 elhp=439) EGFR (BEAKER) (test 34 mL/min/1.73 sq m ESTIMATED GFR IS NOT yfcr=2946) ACCURATE CREATININE CLEARANCE IN PREDICTING GLOMERULAR FILTRATION RATE. ESTIMATED GFR IS NOT APPLICABLE FOR DIALYSIS PATIENTS. [id number] 04:30:00 Test Item Value Reference Range Comments PARTIAL THROMBOPLASTIN TIME (BEAKER) (test 63.2 seconds 22.5-36.0 rcyy=851) PROTHROMBIN [id number] 04:29:00 Test Item Value Reference Range Comments PROTIME (BEAKER) (test lsli=581) 14.6 seconds 11.7-14.7 INR (BEAKER) (test weyt=851) 1.1 <=5.9 RECOMMENDED COUMADIN/WARFARIN INR THERAPY RANGESSTANDARD DOSE: 2.0 - 3.0 Includes: PROPHYLAXIS forvenous thrombosis, systemic embolization; TREATMENT for venous thrombosis and/or pulmonary embolus.HIGH RISK: Target INR is 2.5-3.5 for patients with mechanical heart valves.CBC (HEMOGRAM ONLY)2018-07-09 04:18:00 Test Item Value Reference Range Comments WHITE BLOOD CELL COUNT (BEAKER) (test fuwk=590) 6.8 K/ L 3.5-10.5 RED BLOOD CELL COUNT (BEAKER) (test igvy=003) 2.73 M/ L 3.93-5.22 HEMOGLOBIN (BEAKER) (test ezet=232) 8.4 GM/DL 11.2-15.7 HEMATOCRIT (BEAKER) (test lnvh=120) 28.7 % 34.1-44.9 MEAN CORPUSCULAR VOLUME (BEAKER) (test fcvi=931) 105.1 fL 79.4-94.8 MEAN CORPUSCULAR HEMOGLOBIN (BEAKER) (test 30.8 pg 25.6-32.2 bljf=533) MEAN CORPUSCULAR HEMOGLOBIN CONC (BEAKER) (test 29.3 GM/DL 32.2-35.5 mkhv=657) RED CELL DISTRIBUTION WIDTH (BEAKER) (test 17.2 % 11.7-14.4 msaa=089) PLATELET COUNT (BEAKER) (test jrwh=751) 263 K/CU MM 150-450 MEAN PLATELET VOLUME (BEAKER) (test gimy=322) 9.9 fL 9.4-12.3 NUCLEATED RED BLOOD CELLS (BEAKER) (test 0 /100 WBC 0-0 xaxn=727) POCT-GLUCOSE [id number] 23:27:00 Test Item Value Reference Range Comments POC-GLUCOSE METER (BEAKER) 141 mg/dL 70-110 TESTED AT [address] (test bxij=3021) [facility] [address] POCT-GLUCOSE [id number] 19:30:00 Test Item Value Reference Range Comments POC-GLUCOSE METER (BEAKER) 234 mg/dL 70-110 TESTED AT [address] (test hklo=7427) [facility] [address] POCT-GLUCOSE [id number] 11:55:00 Test Item Value Reference Range Comments POC-GLUCOSE METER (BEAKER) 317 mg/dL 70-110 TESTED AT [address] (test dwtm=1938) [facility] [address] [id number] 05:14:00 Test Item Value Reference Range Comments PHOSPHORUS (BEAKER) (test cvwz=303) 3.8 mg/dL 2.3-4.7 [id number] 05:14:00 Test Item Value Reference Range Comments MAGNESIUM (BEAKER) (test dbns=923) 2.1 mg/dL 1.6-2.6 BASIC METABOLIC [id number] 05:14:00 Test Item Value Reference Range Comments SODIUM (BEAKER) (test 137 meq/L 136-145 imym=608) POTASSIUM (BEAKER) (test 4.6 meq/L 3.5-5.1 jvbs=890) CHLORIDE (BEAKER) (test 103 meq/L 98-107 syql=168) CO2 (BEAKER) (test 26 meq/L 22-29 vxbu=334) BLOOD UREA NITROGEN 31 mg/dL 7-21 (BEAKER) (test gvdg=514) CREATININE (BEAKER) (test 1.63 mg/dL 0.57-1.25 obqm=444) GLUCOSE RANDOM (BEAKER) 244 mg/dL 70-105 (test pqig=967) CALCIUM (BEAKER) (test 9.2 mg/dL 8.4-10.2 smba=781) EGFR (BEAKER) (test 38 mL/min/1.73 sq m ESTIMATED GFR IS NOT crwf=8025) ACCURATE CREATININE CLEARANCE IN PREDICTING GLOMERULAR FILTRATION RATE. ESTIMATED GFR IS NOT APPLICABLE FOR DIALYSIS PATIENTS. RAD, CHEST, 1 VIEW, NON [id number] 04:48:00Reason for exam:->post opShould this be performed [...] Verified Date/Time: 07/08/2018 04:48:56 Reading Location : [address] Reading Room Electronicallysigned by: NAVI GARCIA M.D. on 07/08/2018 04:48 [id number] 04:24:00 Test Item Value Reference Range Comments PARTIAL THROMBOPLASTIN TIME (BEAKER) (test 54.7 seconds 22.5-36.0 xico=144) PROTHROMBIN [id number] 04:23:00 Test Item Value Reference Range Comments PROTIME (BEAKER) (test gqnq=852) 14.8 seconds 11.7-14.7 INR (BEAKER) (test ntim=607) 1.2 <=5.9 RECOMMENDED COUMADIN/WARFARIN INR THERAPY RANGESSTANDARD DOSE: 2.0 - 3.0 Includes: PROPHYLAXIS forvenous thrombosis, systemic embolization; TREATMENT for venous thrombosis and/or pulmonary embolus.HIGH RISK: Target INR is 2.5-3.5 for patients with mechanical heart valves.CBC (HEMOGRAM ONLY)2018-07-08 04:02:00 Test Item Value Reference Range Comments WHITE BLOOD CELL COUNT (BEAKER) (test yxsc=583) 6.7 K/ L 3.5-10.5 RED BLOOD CELL COUNT (BEAKER) (test njwy=782) 2.79 M/ L 3.93-5.22 HEMOGLOBIN (BEAKER) (test sqol=737) 8.6 GM/DL 11.2-15.7 HEMATOCRIT (BEAKER) (test imss=208) 29.0 % 34.1-44.9 MEAN CORPUSCULAR VOLUME (BEAKER) (test ekuy=401) 103.9 fL 79.4-94.8 MEAN CORPUSCULAR HEMOGLOBIN (BEAKER) (test 30.8 pg 25.6-32.2 cgyq=870) MEAN CORPUSCULAR HEMOGLOBIN CONC (BEAKER) (test 29.7 GM/DL 32.2-35.5 yjsn=604) RED CELL DISTRIBUTION WIDTH (BEAKER) (test 17.2 % 11.7-14.4 lfcq=597) PLATELET COUNT (BEAKER) (test jyru=382) 295 K/CU MM 150-450 MEAN PLATELET VOLUME (BEAKER) (test jxve=937) 10.2 fL 9.4-12.3 NUCLEATED RED BLOOD CELLS (BEAKER) (test 0 /100 WBC 0-0 psvd=344) RAD, CHEST, 1 VIEW, NON [id number] 08:41:00Reason for exam:->post opShould this be performed [...] Verified Date/Time: 07/07/2018 08:41:39 Reading Location: [facility] Reading Room [id number] 05:37:00 Test Item Value Reference Range Comments PHOSPHORUS (BEAKER) (test srjt=030) 3.0 mg/dL 2.3-4.7 [id number] 05:37:00 Test Item Value Reference Range Comments MAGNESIUM (BEAKER) (test sqbx=179) 2.1 mg/dL 1.6-2.6 BASIC METABOLIC [id number] 05:37:00 Test Item Value Reference Range Comments SODIUM (BEAKER) (test 137 meq/L 136-145 nyam=387) POTASSIUM (BEAKER) (test 4.6 meq/L 3.5-5.1 uxsq=312) CHLORIDE (BEAKER) (test 102 meq/L 98-107 lqlo=891) CO2 (BEAKER) (test 25 meq/L 22-29 nnrg=242) BLOOD UREA NITROGEN 27 mg/dL 7-21 (BEAKER) (test hkiw=825) CREATININE (BEAKER) (test 1.44 mg/dL 0.57-1.25 baai=958) GLUCOSE RANDOM (BEAKER) 191 mg/dL 70-105 (test zhwu=702) CALCIUM (BEAKER) (test 9.2 mg/dL 8.4-10.2 phpe=227) EGFR (BEAKER) (test 43 mL/min/1.73 sq m ESTIMATED GFR IS NOT kozd=3466) ACCURATE CREATININE CLEARANCE IN PREDICTING GLOMERULAR FILTRATION RATE. ESTIMATED GFR IS NOT APPLICABLE FOR DIALYSIS PATIENTS. [id number] 05:12:00 Test Item Value Reference Range Comments PARTIAL THROMBOPLASTIN TIME (BEAKER) (test 42.9 seconds 22.5-36.0 eesp=133) PROTHROMBIN TIME/[id number] 05:11:00 Test Item Value Reference Range Comments PROTIME (BEAKER) (test jnbh=762) 14.1 seconds 11.7-14.7 INR (BEAKER) (test vlof=990) 1.1 <=5.9 RECOMMENDED COUMADIN/WARFARIN INR THERAPY RANGESSTANDARD DOSE: 2.0 - 3.0 Includes: PROPHYLAXIS forvenous thrombosis, systemic embolization; TREATMENT for venous thrombosis and/or pulmonary embolus.HIGH RISK: Target INR is 2.5-3.5 for patients with mechanical heart valves.CBC (HEMOGRAM ONLY)2018-07-07 05:01:00 Test Item Value Reference Range Comments WHITE BLOOD CELL COUNT (BEAKER) (test eibo=499) 6.9 K/ L 3.5-10.5 RED BLOOD CELL COUNT (BEAKER) (test ajqw=547) 2.84 M/ L 3.93-5.22 HEMOGLOBIN (BEAKER) (test tjvm=506) 8.8 GM/DL 11.2-15.7 HEMATOCRIT (BEAKER) (test hslr=693) 29.2 % 34.1-44.9 MEAN CORPUSCULAR VOLUME (BEAKER) (test wzll=000) 102.8 fL 79.4-94.8 MEAN CORPUSCULAR HEMOGLOBIN (BEAKER) (test 31.0 pg 25.6-32.2 zrji=450) MEAN CORPUSCULAR HEMOGLOBIN CONC (BEAKER) (test 30.1 GM/DL 32.2-35.5 hnps=414) RED CELL DISTRIBUTION WIDTH (BEAKER) (test 17.0 % 11.7-14.4 huss=563) PLATELET COUNT (BEAKER) (test zfxm=729) 270 K/CU MM 150-450 MEAN PLATELET VOLUME (BEAKER) (test cety=617) 10.2 fL 9.4-12.3 NUCLEATED RED BLOOD CELLS (BEAKER) (test 0 /100 WBC 0-0 yrzr=791) RAD, CHEST, 1 VIEW, NON [id number] 17:48:00Reason for exam:->Confirm PICC line placementShould this [...] MDReport Verified Date/Time: 07/06/2018 17:48:54 Reading Location: [place] [id number] Consult Reading Room Electronically signed by: GEO RICO M.D. on 2018 05:48 [id number] 17:23:00 Test Item Value Reference Range Comments MAGNESIUM (BEAKER) (test ypgs=637) 2.2 mg/dL 1.6-2.6 BASIC METABOLIC [id number] 17:23:00 Test Item Value Reference Range Comments SODIUM (BEAKER) (test 137 meq/L 136-145 vkem=733) POTASSIUM (BEAKER) (test 4.9 meq/L 3.5-5.1 vflk=914) CHLORIDE (BEAKER) (test 103 meq/L 98-107 davi=890) CO2 (BEAKER) (test 25 meq/L 22-29 kzoa=998) BLOOD UREA NITROGEN 25 mg/dL 7-21 (BEAKER) (test qwsi=746) CREATININE (BEAKER) (test 1.41 mg/dL 0.57-1.25 fneg=847) GLUCOSE RANDOM (BEAKER) 219 mg/dL 70-105 (test szis=716) CALCIUM (BEAKER) (test 9.0 mg/dL 8.4-10.2 nown=689) EGFR (BEAKER) (test 45 mL/min/1.73 sq m ESTIMATED GFR IS NOT sjwh=2908) ACCURATE CREATININE CLEARANCE IN PREDICTING GLOMERULAR FILTRATION RATE. ESTIMATED GFR IS NOT APPLICABLE FOR DIALYSIS PATIENTS. BLOOD GAS, [id number] 16:33:00 Test Item Value Reference Range Comments PH ARTERIAL (BEAKER) (test jobh=764) 7.46 7.35-7.45 PCO2 ARTERIAL (BEAKER) (test plqp=820) 42 mmHg 35-45 PO2 ARTERIAL (BEAKER) (test lbzw=134) 63 mmHg 80-90 O2 SATURATION ARTERIAL (BEAKER) (test nsxf=609) 93.1 % 96.0-97.0 HCO3 ARTERIAL (BEAKER) (test vgfo=882) 29 mmol/L 21-29 BASE EXCESS ARTERIAL (BEAKER) (test oixm=814) 4.4 mmol/L -2.0-3.0 PATIENT TEMPERATURE (BEAKER) (test dhmd=4249) 37.0 C FIO2 (BEAKER) (test ivgm=7826) 32.0 % RAD, CHEST, 1 VIEW, NON [id number] 13:22:00Reason for exam:->post opShould this be performed at the bedside?->YesFINAL REPORT Chest one view. Clinical history: post op Comparison: 07/05/2018 Discussion: A frontal chest is provided. Cardiomediastinal contours are unchanged. A left IJ line is in stable position. There is mild pulmonary edema. No new consolidation. No pneumothorax. Small bilateral pleural effusions are present. Signed: Morgan Chengeport Verified Date/Time: 07/06/2018 13:22:02 Reading Location: [address] Consult Reading Room [id number] 04:30:00 Test Item Value Reference Range Comments PHOSPHORUS (BEAKER) (test louy=553) 3.2 mg/dL 2.3-4.7 [id number] 04:30:00 Test Item Value Reference Range Comments MAGNESIUM (BEAKER) (test qrje=607) 2.2 mg/dL 1.6-2.6 BASIC METABOLIC [id number] 04:30:00 Test Item Value Reference Range Comments SODIUM (BEAKER) (test 138 meq/L 136-145 cmyb=000) POTASSIUM (BEAKER) (test 4.4 meq/L 3.5-5.1 xods=829) CHLORIDE (BEAKER) (test 104 meq/L 98-107 svnn=459) CO2 (BEAKER) (test 28 meq/L 22-29 ffzq=964) BLOOD UREA NITROGEN 25 mg/dL 7-21 (BEAKER) (test gkgc=511) CREATININE (BEAKER) (test 1.43 mg/dL 0.57-1.25 oqiz=531) GLUCOSE RANDOM (BEAKER) 207 mg/dL 70-105 (test irhy=558) CALCIUM (BEAKER) (test 8.9 mg/dL 8.4-10.2 ppsj=604) EGFR (BEAKER) (test 44 mL/min/1.73 sq m ESTIMATED GFR IS NOT tuki=7336) ACCURATE CREATININE CLEARANCE IN PREDICTING GLOMERULAR FILTRATION RATE. ESTIMATED GFR IS NOT APPLICABLE FOR DIALYSIS PATIENTS. PROTHROMBIN TIME/[id number] 04:06:00 Test Item Value Reference Range Comments PROTIME (BEAKER) (test dnoh=383) 14.6 seconds 11.7-14.7 INR (BEAKER) (test uvhj=191) 1.1 <=5.9 RECOMMENDED COUMADIN/WARFARIN INR THERAPY RANGESSTANDARD DOSE: 2.0 - 3.0 Includes: PROPHYLAXIS forvenous thrombosis, systemic embolization; TREATMENT for venous thrombosis and/or pulmonary embolus.HIGH RISK: Target INR is 2.5-3.5 for patients with mechanical heart valves.[id number] 04:06:00 Test Item Value Reference Range Comments PARTIAL THROMBOPLASTIN TIME (BEAKER) (test 47.8 seconds 22.5-36.0 iltl=656) CBC (HEMOGRAM ONLY)2018-07-06 03:53:00 Test Item Value Reference Range Comments WHITE BLOOD CELL COUNT (BEAKER) (test hkbm=446) 7.1 K/ L 3.5-10.5 RED BLOOD CELL COUNT (BEAKER) (test ibfn=346) 2.77 M/ L 3.93-5.22 HEMOGLOBIN (BEAKER) (test mupo=437) 8.4 GM/DL 11.2-15.7 HEMATOCRIT (BEAKER) (test coao=931) 28.6 % 34.1-44.9 MEAN CORPUSCULAR VOLUME (BEAKER) (test absr=294) 103.2 fL 79.4-94.8 MEAN CORPUSCULAR HEMOGLOBIN (BEAKER) (test 30.3 pg 25.6-32.2 vtst=716) MEAN CORPUSCULAR HEMOGLOBIN CONC (BEAKER) (test 29.4 GM/DL 32.2-35.5 nlbt=600) RED CELL DISTRIBUTION WIDTH (BEAKER) (test 17.1 % 11.7-14.4 qstw=134) PLATELET COUNT (BEAKER) (test kpzp=578) 267 K/CU MM 150-450 MEAN PLATELET VOLUME (BEAKER) (test ggpf=794) 9.9 fL 9.4-12.3 NUCLEATED RED BLOOD CELLS (BEAKER) (test 0 /100 WBC 0-0 orei=725) HEPATIC FUNCTION [id number] 17:51:00 Test Item Value Reference Range Comments TOTAL PROTEIN (BEAKER) (test exkp=413) 6.2 gm/dL 6.0-8.3 ALBUMIN (BEAKER) (test omgn=5631) 3.2 g/dL 3.5-5.0 BILIRUBIN TOTAL (BEAKER) (test qwhs=754) 0.7 mg/dL 0.2-1.2 BILIRUBIN DIRECT (BEAKER) (test kmqd=660) 0.5 mg/dL 0.1-0.5 ALKALINE PHOSPHATASE (BEAKER) (test sagb=457) 84 U/L 40-150 AST (SGOT) (BEAKER) (test xfmt=361) 16 U/L 5-34 ALT (SGPT) (BEAKER) (test zsgi=290) 9 U/L 6-55 RAD, CHEST, 1 VIEW, NON [id number] 08:39:00Reason for exam:->post opShould this be performed [...] Reading Location: [facility] [address] Radiology Reading Room [id number] 04:33:00 Test Item Value Reference Range Comments MAGNESIUM (BEAKER) (test 2.6 mg/dL 1.6-2.6 Specimen slightly hemolyzed oaaf=577) [id number] 04:33:00 Test Item Value Reference Range Comments PHOSPHORUS (BEAKER) (test 2.9 mg/dL 2.3-4.7 Specimen slightly hemolyzed fbxu=780) BASIC METABOLIC [id number] 04:33:00 Test Item Value Reference Range Comments SODIUM (BEAKER) (test 139 meq/L 136-145 jkvs=337) POTASSIUM (BEAKER) (test 4.5 meq/L 3.5-5.1 Specimen slightly zzcw=337) hemolyzed CHLORIDE (BEAKER) (test 105 meq/L 98-107 pkif=416) CO2 (BEAKER) (test 28 meq/L 22-29 zuia=051) BLOOD UREA NITROGEN 26 mg/dL 7-21 (BEAKER) (test gqir=456) CREATININE (BEAKER) (test 1.32 mg/dL 0.57-1.25 Specimen slightly ttmx=436) hemolyzed GLUCOSE RANDOM (BEAKER) 111 mg/dL 70-105 (test csvl=976) CALCIUM (BEAKER) (test 8.5 mg/dL 8.4-10.2 plpq=264) EGFR (BEAKER) (test 48 mL/min/1.73 sq m ESTIMATED GFR IS NOT iykf=8897) ACCURATE CREATININE CLEARANCE IN PREDICTING GLOMERULAR FILTRATION RATE. ESTIMATED GFR IS NOT APPLICABLE FOR DIALYSIS PATIENTS. [id number] 04:23:00 Test Item Value Reference Range Comments PARTIAL THROMBOPLASTIN TIME (BEAKER) (test 49.0 seconds 22.5-36.0 wxct=926) PROTHROMBIN TIME/[id number] 04:22:00 Test Item Value Reference Range Comments PROTIME (BEAKER) (test jums=876) 14.3 seconds 11.7-14.7 INR (BEAKER) (test vdvt=216) 1.1 <=5.9 RECOMMENDED COUMADIN/WARFARIN INR THERAPY RANGESSTANDARD DOSE: 2.0 - 3.0 Includes: PROPHYLAXIS forvenous thrombosis, systemic embolization; TREATMENT for venous thrombosis and/or pulmonary embolus.HIGH RISK: Target INR is 2.5-3.5 for patients with mechanical heart valves.CBC (HEMOGRAM ONLY)2018-07-05 04:13:00 Test Item Value Reference Range Comments WHITE BLOOD CELL COUNT (BEAKER) (test mpdp=550) 6.6 K/ L 3.5-10.5 RED BLOOD CELL COUNT (BEAKER) (test icce=796) 2.60 M/ L 3.93-5.22 HEMOGLOBIN (BEAKER) (test nczk=799) 7.9 GM/DL 11.2-15.7 HEMATOCRIT (BEAKER) (test spqa=699) 26.5 % 34.1-44.9 MEAN CORPUSCULAR VOLUME (BEAKER) (test ehtb=564) 101.9 fL 79.4-94.8 MEAN CORPUSCULAR HEMOGLOBIN (BEAKER) (test 30.4 pg 25.6-32.2 bjrv=907) MEAN CORPUSCULAR HEMOGLOBIN CONC (BEAKER) (test 29.8 GM/DL 32.2-35.5 hlkr=578) RED CELL DISTRIBUTION WIDTH (BEAKER) (test 17.4 % 11.7-14.4 knir=684) PLATELET COUNT (BEAKER) (test ttnm=245) 248 K/CU MM 150-450 MEAN PLATELET VOLUME (BEAKER) (test hnfa=936) 10.4 fL 9.4-12.3 NUCLEATED RED BLOOD CELLS (BEAKER) (test 0 /100 WBC 0-0 blwb=460) POCT-GLUCOSE [id number] 18:22:00 Test Item Value Reference Range Comments POC-GLUCOSE METER (BEAKER) 166 mg/dL 70-110 TESTED AT [address] (test zdlv=7109) [facility] [address] RAD, CHEST, 1 VIEW, NON [id number] 08:37:00Reason for exam:->post opShould this be performed at the bedside?->YesFINAL REPORT AP view of the chest dated 07/04/2018 COMPARISON: 07/03/2018 CLINICAL INFORMATION: post op Comment: Heart remains enlarged. Thoracic aorta is ectatic. Stent is seen inthe descending thoracic aorta. Pulmonary vasculature is unremarkable. Lungs are clear. No pulmonary infiltrate or pleural effusion is present. Impression: No interval change. Signed: Virginia Diaz [facility] ([place], [place]) Verified Date/Time: 07/04/2018 08:37:54 Reading Location: [facility] [address] Radiology Reading Room Electronically signed by: VIRGINIA DIAZ M.D. on 2018 08:37 [id number] 04:36:00 Test Item Value Reference Range Comments PARTIAL THROMBOPLASTIN TIME (BEAKER) (test 49.7 seconds 22.5-36.0 bkvz=379) PROTHROMBIN TIME/[id number] 04:35:00 Test Item Value Reference Range Comments PROTIME (BEAKER) (test elqz=645) 15.0 seconds 11.7-14.7 INR (BEAKER) (test vxvk=417) 1.2 <=5.9 RECOMMENDED COUMADIN/WARFARIN INR THERAPY RANGESSTANDARD DOSE: 2.0 - 3.0 Includes: PROPHYLAXIS forvenous thrombosis, systemic embolization; TREATMENT for venous thrombosis and/or pulmonary embolus.HIGH RISK: Target INR is 2.5-3.5 for patients with mechanical heart valves.[id number] 04:35:00 Test Item Value Reference Range Comments PHOSPHORUS (BEAKER) (test ovii=912) 2.5 mg/dL 2.3-4.7 [id number] 04:35:00 Test Item Value Reference Range Comments MAGNESIUM (BEAKER) (test vsxk=118) 2.2 mg/dL 1.6-2.6 BASIC METABOLIC [id number] 04:35:00 Test Item Value Reference Range Comments SODIUM (BEAKER) (test 138 meq/L 136-145 ncye=142) POTASSIUM (BEAKER) (test 3.8 meq/L 3.5-5.1 bvpf=244) CHLORIDE (BEAKER) (test 102 meq/L 98-107 gvug=355) CO2 (BEAKER) (test 30 meq/L 22-29 idsr=391) BLOOD UREA NITROGEN 28 mg/dL 7-21 (BEAKER) (test zrhn=144) CREATININE (BEAKER) (test 1.48 mg/dL 0.57-1.25 vudk=545) GLUCOSE RANDOM (BEAKER) 175 mg/dL 70-105 (test jznr=663) CALCIUM (BEAKER) (test 8.6 mg/dL 8.4-10.2 tkqn=039) EGFR (BEAKER) (test 42 mL/min/1.73 sq m ESTIMATED GFR IS NOT hkdi=7301) ACCURATE CREATININE CLEARANCE IN PREDICTING GLOMERULAR FILTRATION RATE. ESTIMATED GFR IS NOT APPLICABLE FOR DIALYSIS PATIENTS. CBC (HEMOGRAM ONLY)2018-07-04 04:16:00 Test Item Value Reference Range Comments WHITE BLOOD CELL COUNT (BEAKER) (test yden=761) 7.4 K/ L 3.5-10.5 RED BLOOD CELL COUNT (BEAKER) (test lvjh=035) 2.76 M/ L 3.93-5.22 HEMOGLOBIN (BEAKER) (test eaqw=361) 8.5 GM/DL 11.2-15.7 HEMATOCRIT (BEAKER) (test lpvk=127) 28.1 % 34.1-44.9 MEAN CORPUSCULAR VOLUME (BEAKER) (test vrvi=940) 101.8 fL 79.4-94.8 MEAN CORPUSCULAR HEMOGLOBIN (BEAKER) (test 30.8 pg 25.6-32.2 fpsx=486) MEAN CORPUSCULAR HEMOGLOBIN CONC (BEAKER) (test 30.2 GM/DL 32.2-35.5 nddb=682) RED CELL DISTRIBUTION WIDTH (BEAKER) (test 17.7 % 11.7-14.4 zaim=731) PLATELET COUNT (BEAKER) (test nglx=004) 268 K/CU MM 150-450 MEAN PLATELET VOLUME (BEAKER) (test cyyz=259) 10.2 fL 9.4-12.3 NUCLEATED RED BLOOD CELLS (BEAKER) (test 0 /100 WBC 0-0 gyuk=080) [id number] 10:56:00 Test Item Value Reference Range Comments POTASSIUM (BEAKER) (test mzyo=816) 4.3 meq/L 3.5-5.1 Check Serum Potassium level 30 minutes after IV potassium replacement completed.RAD, CHEST, 1 VIEW, NON [id number] 08:24:00Reason for exam:-> post opShould this be [...] Reading Location: [facility] [address] Radiology Reading Room POCT-GLUCOSE [id number] 08:16:00 Test Item Value Reference Range Comments POC-GLUCOSE METER (BEAKER) 164 mg/dL 70-110 TESTED AT [facility] [address] [facility] (test qekf=0933) [facility] [address] RAD, ABDOMEN/KUB, 1 VIEW [id number] 06:21:00Reason for exam:->abd painShould this be performed [...] MDReport Verified Date/Time: 07/03/2018 06:21:16 Reading Location: [address] Reading Room [id number] 04:00:00 Test Item Value Reference Range Comments PHOSPHORUS (BEAKER) (test hfyj=615) 2.3 mg/dL 2.3-4.7 [id number] 04:00:00 Test Item Value Reference Range Comments MAGNESIUM (BEAKER) (test cvlp=546) 1.9 mg/dL 1.6-2.6 BASIC METABOLIC [id number] 04:00:00 Test Item Value Reference Range Comments SODIUM (BEAKER) (test 139 meq/L 136-145 kigk=422) POTASSIUM (BEAKER) (test 3.5 meq/L 3.5-5.1 uawz=305) CHLORIDE (BEAKER) (test 103 meq/L 98-107 zned=515) CO2 (BEAKER) (test 27 meq/L 22-29 aiyf=509) BLOOD UREA NITROGEN 27 mg/dL 7-21 (BEAKER) (test vaxq=579) CREATININE (BEAKER) (test 1.40 mg/dL 0.57-1.25 fjwh=115) GLUCOSE RANDOM (BEAKER) 123 mg/dL 70-105 (test vsec=393) CALCIUM (BEAKER) (test 8.9 mg/dL 8.4-10.2 rgym=864) EGFR (BEAKER) (test 45 mL/min/1.73 sq m ESTIMATED GFR IS NOT oryj=5881) ACCURATE CREATININE CLEARANCE IN PREDICTING GLOMERULAR FILTRATION RATE. ESTIMATED GFR IS NOT APPLICABLE FOR DIALYSIS PATIENTS. [id number] 03:59:00 Test Item Value Reference Range Comments PARTIAL THROMBOPLASTIN TIME (BEAKER) (test 48.9 seconds 22.5-36.0 gaqm=833) PROTHROMBIN TIME/[id number] 03:58:00 Test Item Value Reference Range Comments PROTIME (BEAKER) (test efmy=401) 15.3 seconds 11.7-14.7 INR (BEAKER) (test sfla=046) 1.2 <=5.9 RECOMMENDED COUMADIN/WARFARIN INR THERAPY RANGESSTANDARD DOSE: 2.0 - 3.0 Includes: PROPHYLAXIS forvenous thrombosis, systemic embolization; TREATMENT for venous thrombosis and/or pulmonary embolus.HIGH RISK: Target INR is 2.5-3.5 for patients with mechanical heart valves.CBC (HEMOGRAM ONLY)2018-07-03 03:39:00 Test Item Value Reference Range Comments WHITE BLOOD CELL COUNT (BEAKER) (test uvwg=834) 8.1 K/ L 3.5-10.5 RED BLOOD CELL COUNT (BEAKER) (test mbve=313) 2.90 M/ L 3.93-5.22 HEMOGLOBIN (BEAKER) (test embc=681) 9.0 GM/DL 11.2-15.7 HEMATOCRIT (BEAKER) (test avpm=373) 29.4 % 34.1-44.9 MEAN CORPUSCULAR VOLUME (BEAKER) (test tdwx=155) 101.4 fL 79.4-94.8 MEAN CORPUSCULAR HEMOGLOBIN (BEAKER) (test 31.0 pg 25.6-32.2 eekq=279) MEAN CORPUSCULAR HEMOGLOBIN CONC (BEAKER) (test 30.6 GM/DL 32.2-35.5 zbql=106) RED CELL DISTRIBUTION WIDTH (BEAKER) (test 17.8 % 11.7-14.4 msdk=226) PLATELET COUNT (BEAKER) (test ninj=873) 245 K/CU MM 150-450 MEAN PLATELET VOLUME (BEAKER) (test kbfr=503) 9.8 fL 9.4-12.3 NUCLEATED RED BLOOD CELLS (BEAKER) (test 0 /100 WBC 0-0 uruu=093) OXYGEN SATURATION, [id number] 10:53:00 Test Item Value Reference Range Comments O2 SATURATION (MEASURED) (BEAKER) (test usrb=3373) 50.1 % OXYGEN SATURATION, [id number] 08:54:00 Test Item Value Reference Range Comments O2 SATURATION (MEASURED) (BEAKER) (test xrty=0860) 45.3 % BLOOD GAS, [id number] 08:54:00 Test Item Value Reference Range Comments PH ARTERIAL (BEAKER) (test pyai=920) 7.49 7.35-7.45 PCO2 ARTERIAL (BEAKER) (test mtnm=973) 39 mmHg 35-45 PO2 ARTERIAL (BEAKER) (test iwzx=562) 64 mmHg 80-90 O2 SATURATION ARTERIAL (BEAKER) (test tstm=483) 94.6 % 96.0-97.0 HCO3 ARTERIAL (BEAKER) (test znmy=285) 29 mmol/L 21-29 BASE EXCESS ARTERIAL (BEAKER) (test kxgh=906) 5.1 mmol/L -2.0-3.0 PATIENT TEMPERATURE (BEAKER) (test dccb=1214) 36.1 C FIO2 (BEAKER) (test swvo=5915) 32.0 % RAD, CHEST, 1 VIEW, NON [id number] 06:40:00Reason for exam:->ETTShould this be performed at [...] MDReport Verified Date/Time: 07/02/2018 06:40:32 Reading Location: [address] Transitional Reading Room CBC W/PLT COUNT & AUTO [id number] 05:31 :00 Test Item Value Reference Range Comments WHITE BLOOD CELL COUNT (BEAKER) (test otha=635) 7.9 K/ L 3.5-10.5 RED BLOOD CELL COUNT (BEAKER) (test ppmt=156) 2.83 M/ L 3.93-5.22 HEMOGLOBIN (BEAKER) (test pbhb=602) 8.6 GM/DL 11.2-15.7 HEMATOCRIT (BEAKER) (test kuon=713) 28.4 % 34.1-44.9 MEAN CORPUSCULAR VOLUME (BEAKER) (test flpl=883) 100.4 fL 79.4-94.8 MEAN CORPUSCULAR HEMOGLOBIN (BEAKER) (test 30.4 pg 25.6-32.2 ahql=106) MEAN CORPUSCULAR HEMOGLOBIN CONC (BEAKER) (test 30.3 GM/DL 32.2-35.5 kybh=895) RED CELL DISTRIBUTION WIDTH (BEAKER) (test 17.9 % 11.7-14.4 xtlw=842) PLATELET COUNT (BEAKER) (test upkl=932) 222 K/CU MM 150-450 MEAN PLATELET VOLUME (BEAKER) (test czje=628) 9.9 fL 9.4-12.3 NUCLEATED RED BLOOD CELLS (BEAKER) (test 0 /100 WBC 0-0 mplb=922) NEUTROPHILS RELATIVE PERCENT (BEAKER) (test 85 % qbmb=929) LYMPHOCYTES RELATIVE PERCENT (BEAKER) (test 6 % gcck=037) MONOCYTES RELATIVE PERCENT (BEAKER) (test 8 % wtcz=889) EOSINOPHILS RELATIVE PERCENT (BEAKER) (test 1 % rdmu=841) BASOPHILS RELATIVE PERCENT (BEAKER) (test 0 % wkiu=641) NEUTROPHILS ABSOLUTE COUNT (BEAKER) (test 6.67 K/ L 1.56-6.13 unrj=954) LYMPHOCYTES ABSOLUTE COUNT (BEAKER) (test 0.46 K/ L 1.18-3.74 wwvi=700) MONOCYTES ABSOLUTE COUNT (BEAKER) (test 0.64 K/ L 0.24-0.36 mdec=838) EOSINOPHILS ABSOLUTE COUNT (BEAKER) (test 0.06 K/ L 0.04-0.36 lqpc=628) BASOPHILS ABSOLUTE COUNT (BEAKER) (test 0.02 K/ L 0.01-0.08 jrvv=673) IMMATURE GRANULOCYTES-RELATIVE PERCENT (BEAKER) 1 % 0-1 (test wsyh=1173) BASIC METABOLIC [id number] 04:54:00 Test Item Value Reference Range Comments SODIUM (BEAKER) (test 140 meq/L 136-145 csbi=570) POTASSIUM (BEAKER) (test 3.7 meq/L 3.5-5.1 dlpv=141) CHLORIDE (BEAKER) (test 104 meq/L 98-107 dcga=918) CO2 (BEAKER) (test 28 meq/L 22-29 imdn=091) BLOOD UREA NITROGEN 29 mg/dL 7-21 (BEAKER) (test jnid=957) CREATININE (BEAKER) (test 1.49 mg/dL 0.57-1.25 vrkq=793) GLUCOSE RANDOM (BEAKER) 107 mg/dL 70-105 (test mgud=942) CALCIUM (BEAKER) (test 8.9 mg/dL 8.4-10.2 wpbj=342) EGFR (BEAKER) (test 42 mL/min/1.73 sq m ESTIMATED GFR IS NOT ajgx=3545) ACCURATE CREATININE CLEARANCE IN PREDICTING GLOMERULAR FILTRATION RATE. ESTIMATED GFR IS NOT APPLICABLE FOR DIALYSIS PATIENTS. BASIC METABOLIC [id number] 18:41:00 Test Item Value Reference Range Comments SODIUM (BEAKER) (test 140 meq/L 136-145 bxlm=231) POTASSIUM (BEAKER) (test 4.1 meq/L 3.5-5.1 uvxh=232) CHLORIDE (BEAKER) (test 104 meq/L 98-107 btau=811) CO2 (BEAKER) (test 25 meq/L 22-29 aogk=055) BLOOD UREA NITROGEN 31 mg/dL 7-21 (BEAKER) (test gplf=523) CREATININE (BEAKER) (test 1.55 mg/dL 0.57-1.25 ajyy=863) GLUCOSE RANDOM (BEAKER) 127 mg/dL 70-105 (test czsh=047) CALCIUM (BEAKER) (test 9.0 mg/dL 8.4-10.2 svbl=065) EGFR (BEAKER) (test 40 mL/min/1.73 sq m ESTIMATED GFR IS NOT iyec=7408) ACCURATE CREATININE CLEARANCE IN PREDICTING GLOMERULAR FILTRATION RATE. ESTIMATED GFR IS NOT APPLICABLE FOR DIALYSIS PATIENTS. BLOOD GAS, [id number] 18:12:00 Test Item Value Reference Range Comments PH ARTERIAL (BEAKER) (test kqrd=303) 7.50 7.35-7.45 PCO2 ARTERIAL (BEAKER) (test rewl=502) 39 mmHg 35-45 PO2 ARTERIAL (BEAKER) (test jios=820) 59 mmHg 80-90 O2 SATURATION ARTERIAL (BEAKER) (test nniy=243) 92.7 % 96.0-97.0 HCO3 ARTERIAL (BEAKER) (test yuij=226) 30 mmol/L 21-29 BASE EXCESS ARTERIAL (BEAKER) (test zkaa=573) 6.0 mmol/L -2.0-3.0 PATIENT TEMPERATURE (BEAKER) (test txvq=5016) 36.9 C FIO2 (BEAKER) (test yytd=4177) 32.0 % RAD, CHEST, 1 VIEW, NON [id number] 07:32:00Reason for exam:->ETTShould this be performed at the bedside?->YesFINAL REPORT Chest one view. Clinical history: ETT Comparison: 06/30/2018 Discussion: A frontal chest is provided. Cardiomediastinal contours are unchanged. ET has been removed. Left IJ line is unchanged. There is unchanged mild vascular congestion and interstitial edema. Probable small left effusion. No pneumothorax. Signed: Morgan Cheng Verified Date/Time: 07/01/2018 07:32: 43 Reading Location: [address] Neuro Reading Room BASIC METABOLIC [id number] 06:20:00 Test Item Value Reference Range Comments SODIUM (BEAKER) (test 142 meq/L 136-145 esdo=868) POTASSIUM (BEAKER) (test 4.3 meq/L 3.5-5.1 razo=807) CHLORIDE (BEAKER) (test 106 meq/L 98-107 nkjp=041) CO2 (BEAKER) (test 27 meq/L 22-29 kjft=921) BLOOD UREA NITROGEN 34 mg/dL 7-21 (BEAKER) (test yhof=243) CREATININE (BEAKER) (test 1.67 mg/dL 0.57-1.25 rphj=591) GLUCOSE RANDOM (BEAKER) 130 mg/dL 70-105 (test acvq=722) CALCIUM (BEAKER) (test 9.1 mg/dL 8.4-10.2 zhci=885) EGFR (BEAKER) (test 37 mL/min/1.73 sq m ESTIMATED GFR IS NOT gbvy=0689) ACCURATE CREATININE CLEARANCE IN PREDICTING GLOMERULAR FILTRATION RATE. ESTIMATED GFR IS NOT APPLICABLE FOR DIALYSIS PATIENTS. CBC W/PLT COUNT & AUTO [id number] 05:56:00 Test Item Value Reference Range Comments WHITE BLOOD CELL COUNT (BEAKER) (test ahlt=688) 6.9 K/ L 3.5-10.5 RED BLOOD CELL COUNT (BEAKER) (test vcgg=222) 2.88 M/ L 3.93-5.22 HEMOGLOBIN (BEAKER) (test jtji=466) 8.9 GM/DL 11.2-15.7 HEMATOCRIT (BEAKER) (test lunu=054) 29.5 % 34.1-44.9 MEAN CORPUSCULAR VOLUME (BEAKER) (test gjsw=778) 102.4 fL 79.4-94.8 MEAN CORPUSCULAR HEMOGLOBIN (BEAKER) (test 30.9 pg 25.6-32.2 uiue=322) MEAN CORPUSCULAR HEMOGLOBIN CONC (BEAKER) (test 30.2 GM/DL 32.2-35.5 bbmt=111) RED CELL DISTRIBUTION WIDTH (BEAKER) (test 17.8 % 11.7-14.4 opuh=187) PLATELET COUNT (BEAKER) (test pfxr=892) 211 K/CU MM 150-450 MEAN PLATELET VOLUME (BEAKER) (test rznx=328) 9.6 fL 9.4-12.3 NUCLEATED RED BLOOD CELLS (BEAKER) (test 0 /100 WBC 0-0 gpgv=800) NEUTROPHILS RELATIVE PERCENT (BEAKER) (test 86 % pidz=663) LYMPHOCYTES RELATIVE PERCENT (BEAKER) (test 5 % bryf=555) MONOCYTES RELATIVE PERCENT (BEAKER) (test 8 % xqlf=788) EOSINOPHILS RELATIVE PERCENT (BEAKER) (test 0 % jwjl=039) BASOPHILS RELATIVE PERCENT (BEAKER) (test 0 % gaaf=231) NEUTROPHILS ABSOLUTE COUNT (BEAKER) (test 5.94 K/ L 1.56-6.13 acts=441) LYMPHOCYTES ABSOLUTE COUNT (BEAKER) (test 0.37 K/ L 1.18-3.74 jhdn=758) MONOCYTES ABSOLUTE COUNT (BEAKER) (test 0.53 K/ L 0.24-0.36 gpbm=932) EOSINOPHILS ABSOLUTE COUNT (BEAKER) (test 0.02 K/ L 0.04-0.36 yvue=155) BASOPHILS ABSOLUTE COUNT (BEAKER) (test 0.01 K/ L 0.01-0.08 zdmz=118) IMMATURE GRANULOCYTES-RELATIVE PERCENT (BEAKER) 0 % 0-1 (test rpgj=3863) [id number] 15:31:00 Test Item Value Reference Range Comments MAGNESIUM (BEAKER) (test uuys=645) 2.2 mg/dL 1.6-2.6 BASIC METABOLIC [id number] 15:31:00 Test Item Value Reference Range Comments SODIUM (BEAKER) (test 137 meq/L 136-145 ebos=153) POTASSIUM (BEAKER) (test 4.5 meq/L 3.5-5.1 jjfi=492) CHLORIDE (BEAKER) (test 102 meq/L 98-107 rffw=327) CO2 (BEAKER) (test 24 meq/L 22-29 exwy=130) BLOOD UREA NITROGEN 36 mg/dL 7-21 (BEAKER) (test zhjw=786) CREATININE (BEAKER) (test 1.78 mg/dL 0.57-1.25 agos=072) GLUCOSE RANDOM (BEAKER) 179 mg/dL 70-105 (test ebtg=529) CALCIUM (BEAKER) (test 8.8 mg/dL 8.4-10.2 guos=531) EGFR (BEAKER) (test 34 mL/min/1.73 sq m ESTIMATED GFR IS NOT ivuk=9307) ACCURATE CREATININE CLEARANCE IN PREDICTING GLOMERULAR FILTRATION RATE. ESTIMATED GFR IS NOT APPLICABLE FOR DIALYSIS PATIENTS. CBC W/PLT COUNT & AUTO [id number] 15:17:00 Test Item Value Reference Range Comments WHITE BLOOD CELL COUNT (BEAKER) (test bzks=391) 7.3 K/ L 3.5-10.5 RED BLOOD CELL COUNT (BEAKER) (test tmrd=556) 3.02 M/ L 3.93-5.22 HEMOGLOBIN (BEAKER) (test yntt=122) 9.5 GM/DL 11.2-15.7 HEMATOCRIT (BEAKER) (test duvy=116) 31.3 % 34.1-44.9 MEAN CORPUSCULAR VOLUME (BEAKER) (test bxqh=657) 103.6 fL 79.4-94.8 MEAN CORPUSCULAR HEMOGLOBIN (BEAKER) (test 31.5 pg 25.6-32.2 kvsu=272) MEAN CORPUSCULAR HEMOGLOBIN CONC (BEAKER) (test 30.4 GM/DL 32.2-35.5 sjgh=223) RED CELL DISTRIBUTION WIDTH (BEAKER) (test 17.8 % 11.7-14.4 hiim=382) PLATELET COUNT (BEAKER) (test ecya=894) 229 K/CU MM 150-450 MEAN PLATELET VOLUME (BEAKER) (test myyg=849) 9.7 fL 9.4-12.3 NUCLEATED RED BLOOD CELLS (BEAKER) (test 0 /100 WBC 0-0 gsgm=388) NEUTROPHILS RELATIVE PERCENT (BEAKER) (test 91 % xwou=041) LYMPHOCYTES RELATIVE PERCENT (BEAKER) (test 3 % ynje=386) MONOCYTES RELATIVE PERCENT (BEAKER) (test 5 % gxua=772) EOSINOPHILS RELATIVE PERCENT (BEAKER) (test 0 % ipvr=244) BASOPHILS RELATIVE PERCENT (BEAKER) (test 0 % lbdb=232) NEUTROPHILS ABSOLUTE COUNT (BEAKER) (test 6.62 K/ L 1.56-6.13 npzt=865) LYMPHOCYTES ABSOLUTE COUNT (BEAKER) (test 0.23 K/ L 1.18-3.74 nhvc=001) MONOCYTES ABSOLUTE COUNT (BEAKER) (test 0.39 K/ L 0.24-0.36 ytiq=786) EOSINOPHILS ABSOLUTE COUNT (BEAKER) (test 0.00 K/ L 0.04-0.36 czaj=107) BASOPHILS ABSOLUTE COUNT (BEAKER) (test 0.02 K/ L 0.01-0.08 hepw=902) IMMATURE GRANULOCYTES-RELATIVE PERCENT (BEAKER) 0 % 0-1 (test qlci=5531) RAD, CHEST, 1 VIEW, NON [id number] 08:50:00Reason for exam:->ETTShould this be performed at [...] MDReport Verified Date/Time: 06/30/2018 08:50:44 Reading Location: [address] Ultrasound Reading Room [id number] 06:52:00 Test Item Value Reference Range Comments ACTIVATED CLOTTING TIME 147 sec TESTED AT [address] (BEAKER) (test inyi=123) [place] [address] [id number] 06:52:00 Test Item Value Reference Range Comments ACTIVATED CLOTTING TIME 252 sec TESTED AT [address] (BEAKER) (test eyek=790) [place] [address] [id number] 06:52:00 Test Item Value Reference Range Comments ACTIVATED CLOTTING TIME 257 sec TESTED AT [address] (BEAKER) (test miau=113) [place] [address] [id number] 06:52:00 Test Item Value Reference Range Comments ACTIVATED CLOTTING TIME 246 sec TESTED AT [address] (BEAKER) (test aoft=224) [place] [address] LACTIC ACID, [id number] 05:16:00 Test Item Value Reference Range Comments LACTATE BLOOD ARTERIAL (2) (BEAKER) (test 1.0 mmol/L 0.5-2.2 imsn=2909) BLOOD GAS, [id number] 05:06:00 Test Item Value Reference Range Comments PH ARTERIAL (BEAKER) (test nije=277) 7.38 7.35-7.45 PCO2 ARTERIAL (BEAKER) (test tsty=942) 40 mmHg 35-45 PO2 ARTERIAL (BEAKER) (test sefg=025) 107 mmHg 80-90 O2 SATURATION ARTERIAL (BEAKER) (test wcay=178) 97.9 % 96.0-97.0 HCO3 ARTERIAL (BEAKER) (test lqks=446) 23 mmol/L 21-29 BASE EXCESS ARTERIAL (BEAKER) (test wjix=886) -2.1 mmol/L -2.0-3.0 PATIENT TEMPERATURE (BEAKER) (test zshi=0029) 36.7 C FIO2 (BEAKER) (test qage=4341) 60.0 % CBC W/PLT COUNT & AUTO [id number] 04:59:00 Test Item Value Reference Range Comments WHITE BLOOD CELL COUNT (BEAKER) (test nibt=067) 8.9 K/ L 3.5-10.5 RED BLOOD CELL COUNT (BEAKER) (test iaez=510) 3.28 M/ L 3.93-5.22 HEMOGLOBIN (BEAKER) (test fyea=848) 10.0 GM/DL 11.2-15.7 HEMATOCRIT (BEAKER) (test bmgd=417) 34.4 % 34.1-44.9 MEAN CORPUSCULAR VOLUME (BEAKER) (test ucid=489) 104.9 fL 79.4-94.8 MEAN CORPUSCULAR HEMOGLOBIN (BEAKER) (test 30.5 pg 25.6-32.2 hwjy=717) MEAN CORPUSCULAR HEMOGLOBIN CONC (BEAKER) (test 29.1 GM/DL 32.2-35.5 yzbu=787) RED CELL DISTRIBUTION WIDTH (BEAKER) (test 17.6 % 11.7-14.4 zkgn=781) PLATELET COUNT (BEAKER) (test juji=005) 276 K/CU MM 150-450 MEAN PLATELET VOLUME (BEAKER) (test ixvc=174) 9.7 fL 9.4-12.3 NUCLEATED RED BLOOD CELLS (BEAKER) (test 0 /100 WBC 0-0 hsnn=982) NEUTROPHILS RELATIVE PERCENT (BEAKER) (test 90 % lwru=387) LYMPHOCYTES RELATIVE PERCENT (BEAKER) (test 3 % oizk=478) MONOCYTES RELATIVE PERCENT (BEAKER) (test 6 % bsen=977) EOSINOPHILS RELATIVE PERCENT (BEAKER) (test 0 % iecc=928) BASOPHILS RELATIVE PERCENT (BEAKER) (test 0 % ufvq=338) NEUTROPHILS ABSOLUTE COUNT (BEAKER) (test 8.00 K/ L 1.56-6.13 ulhr=318) LYMPHOCYTES ABSOLUTE COUNT (BEAKER) (test 0.30 K/ L 1.18-3.74 fees=552) MONOCYTES ABSOLUTE COUNT (BEAKER) (test 0.51 K/ L 0.24-0.36 sdah=079) EOSINOPHILS ABSOLUTE COUNT (BEAKER) (test 0.01 K/ L 0.04-0.36 bllg=881) BASOPHILS ABSOLUTE COUNT (BEAKER) (test 0.02 K/ L 0.01-0.08 ptbh=409) IMMATURE GRANULOCYTES-RELATIVE PERCENT (BEAKER) 1 % 0-1 (test ztcg=8446) B-TYPE NATRIURETIC FACTOR (BNP)2018-06-30 04:19:00 Test Item Value Reference Range Comments B-TYPE NATRIURETIC PEPTIDE (BEAKER) (test 85256 pg/mL 0-100 tjtd=180) HEPATIC FUNCTION [id number] 04:01:00 Test Item Value Reference Range Comments TOTAL PROTEIN (BEAKER) (test wrtw=042) 6.5 gm/dL 6.0-8.3 ALBUMIN (BEAKER) (test vyxe=2917) 3.4 g/dL 3.5-5.0 BILIRUBIN TOTAL (BEAKER) (test qmqw=567) 1.2 mg/dL 0.2-1.2 BILIRUBIN DIRECT (BEAKER) (test jvkm=502) 0.8 mg/dL 0.1-0.5 ALKALINE PHOSPHATASE (BEAKER) (test maft=738) 103 U/L 40-150 AST (SGOT) (BEAKER) (test zayu=826) 17 U/L 5-34 ALT (SGPT) (BEAKER) (test psnc=453) 15 U/L 6-55 RAD, CHEST, 1 VIEW, NON [id number] 02:31:00Reason for exam:->ETTShould this be performed at [...] Spann Verified Date/Time: 06/30/2018 02:31:37 Reading Location: [id number] Transitional Reading Room [id number] 02:27:00 Test Item Value Reference Range Comments PARTIAL THROMBOPLASTIN TIME (BEAKER) (test 39.5 seconds 22.5-36.0 kogl=397) PROTHROMBIN [id number] 02:26:00 Test Item Value Reference Range Comments PROTIME (BEAKER) (test lyue=064) 16.5 seconds 11.7-14.7 INR (BEAKER) (test hwkn=088) 1.3 <=5.9 RECOMMENDED COUMADIN/WARFARIN INR THERAPY RANGESSTANDARD DOSE: 2.0 - 3.0 Includes: PROPHYLAXIS forvenous thrombosis, systemic embolization; TREATMENT for venous thrombosis and/or pulmonary embolus.HIGH RISK: Target INR is 2.5-3.5 for patients with mechanical heart valves.BASIC METABOLIC [id number] 02:09: 00 Test Item Value Reference Range Comments SODIUM (BEAKER) (test 137 meq/L 136-145 kyzw=187) POTASSIUM (BEAKER) (test 4.9 meq/L 3.5-5.1 evpk=142) CHLORIDE (BEAKER) (test 103 meq/L 98-107 zdqb=142) CO2 (BEAKER) (test 23 meq/L 22-29 fznv=040) BLOOD UREA NITROGEN 32 mg/dL 7-21 (BEAKER) (test tevr=308) CREATININE (BEAKER) (test 1.74 mg/dL 0.57-1.25 iaiq=815) GLUCOSE RANDOM (BEAKER) 143 mg/dL 70-105 (test rxlb=154) CALCIUM (BEAKER) (test 8.8 mg/dL 8.4-10.2 ryyg=058) EGFR (BEAKER) (test 35 mL/min/1.73 sq m ESTIMATED GFR IS NOT gzng=4962) ACCURATE CREATININE CLEARANCE IN PREDICTING GLOMERULAR FILTRATION RATE. ESTIMATED GFR IS NOT APPLICABLE FOR DIALYSIS PATIENTS. LACTIC ACID, [id number] 02:06:00 Test Item Value Reference Range Comments LACTATE BLOOD ARTERIAL (2) (BEAKER) (test 0.8 mmol/L 0.5-2.2 zivx=9229) OXYGEN SATURATION, [id number] 01:59:00 Test Item Value Reference Range Comments O2 SATURATION (MEASURED) (BEAKER) (test tshl=8019) 79.3 % BLOOD GAS, [id number] 01:58:00 Test Item Value Reference Range Comments PH ARTERIAL (BEAKER) (test lzis=752) 7.34 7.35-7.45 PCO2 ARTERIAL (BEAKER) (test taum=107) 50 mmHg 35-45 PO2 ARTERIAL (BEAKER) (test ubwg=038) 78 mmHg 80-90 O2 SATURATION ARTERIAL (BEAKER) (test vepz=769) 95.4 % 96.0-97.0 HCO3 ARTERIAL (BEAKER) (test uoyu=651) 27 mmol/L 21-29 BASE EXCESS ARTERIAL (BEAKER) (test hhri=477) 0.3 mmol/L -2.0-3.0 PATIENT TEMPERATURE (BEAKER) (test tfel=8824) 35.8 C FIO2 (BEAKER) (test limq=1281) 60.0 % CBC W/PLT COUNT & AUTO [id number] 01:57:00 Test Item Value Reference Range Comments WHITE BLOOD CELL COUNT (BEAKER) (test sdsi=593) 9.7 K/ L 3.5-10.5 RED BLOOD CELL COUNT (BEAKER) (test uedt=590) 3.18 M/ L 3.93-5.22 HEMOGLOBIN (BEAKER) (test lkko=170) 9.8 GM/DL 11.2-15.7 HEMATOCRIT (BEAKER) (test bmld=214) 33.3 % 34.1-44.9 MEAN CORPUSCULAR VOLUME (BEAKER) (test njso=020) 104.7 fL 79.4-94.8 MEAN CORPUSCULAR HEMOGLOBIN (BEAKER) (test 30.8 pg 25.6-32.2 ctas=161) MEAN CORPUSCULAR HEMOGLOBIN CONC (BEAKER) (test 29.4 GM/DL 32.2-35.5 ncvz=099) RED CELL DISTRIBUTION WIDTH (BEAKER) (test 17.5 % 11.7-14.4 akog=232) PLATELET COUNT (BEAKER) (test xvpw=298) 289 K/CU MM 150-450 MEAN PLATELET VOLUME (BEAKER) (test pmxh=188) 9.7 fL 9.4-12.3 NUCLEATED RED BLOOD CELLS (BEAKER) (test 0 /100 WBC 0-0 tbfl=767) NEUTROPHILS RELATIVE PERCENT (BEAKER) (test 88 % xeqj=686) LYMPHOCYTES RELATIVE PERCENT (BEAKER) (test 5 % ezon=468) MONOCYTES RELATIVE PERCENT (BEAKER) (test 4 % duzl=688) EOSINOPHILS RELATIVE PERCENT (BEAKER) (test 1 % dqqa=077) BASOPHILS RELATIVE PERCENT (BEAKER) (test 0 % yuph=635) NEUTROPHILS ABSOLUTE COUNT (BEAKER) (test 8.53 K/ L 1.56-6.13 vemh=118) LYMPHOCYTES ABSOLUTE COUNT (BEAKER) (test 0.48 K/ L 1.18-3.74 fmup=946) MONOCYTES ABSOLUTE COUNT (BEAKER) (test 0.41 K/ L 0.24-0.36 tnva=295) EOSINOPHILS ABSOLUTE COUNT (BEAKER) (test 0.13 K/ L 0.04-0.36 befy=716) BASOPHILS ABSOLUTE COUNT (BEAKER) (test 0.04 K/ L 0.01-0.08 ipwx=436) IMMATURE GRANULOCYTES-RELATIVE PERCENT (BEAKER) 1 % 0-1 (test ifeq=8051) FILTER IONIZED [id number] 23:29:00 Test Item Value Reference Range Comments FILTER IONIZED CALCIUM (BEAKER) (test hdzj=2499) 1.14 mmol/L Reference Range: No NormalsBLOOD GAS, [id number] 23:29:00 Test Item Value Reference Range Comments PH ARTERIAL (BEAKER) (test xmym=917) 7.38 7.35-7.45 PCO2 ARTERIAL (BEAKER) (test eiup=672) 49 mmHg 35-45 PO2 ARTERIAL (BEAKER) (test udds=543) 202 mmHg 80-90 O2 SATURATION ARTERIAL (BEAKER) (test vjrv=579) 99.4 % 96.0-97.0 HCO3 ARTERIAL (BEAKER) (test ehfn=014) 29 mmol/L 21-29 BASE EXCESS ARTERIAL (BEAKER) (test dibw=462) 2.6 mmol/L -2.0-3.0 PATIENT TEMPERATURE (BEAKER) (test fjrf=5008) 35.6 C FIO2 (BEAKER) (test tohe=8178) 100.0 % HGB/HCT (H&H) - STAT [id number] 23:28:00 Test Item Value Reference Range Comments HEMOGLOBIN (BEAKER) (test guhg=224) 10.7 g/dL 12.0-15.0 HEMATOCRIT (BEAKER) (test xzfm=928) 31.0 % 36.0-45.0 GLUCOSE-STAT [id number] 23:25:00 Test Item Value Reference Range Comments GLUCOSE RANDOM (BEAKER) (test pgac=766) 97 mg/dL 70-110 SODIUM NA-STAT [id number] 23:25:00 Test Item Value Reference Range Comments SODIUM (BEAKER) (test tbub=244) 137 meq/L 135-148 POTASSIUM-STAT [id number] 23:25:00 Test Item Value Reference Range Comments POTASSIUM (BEAKER) (test bwqz=156) 4.4 meq/L 3.6-5.5 B-TYPE NATRIURETIC FACTOR (BNP)2018-06-29 21:59:00 Test Item Value Reference Range Comments B-TYPE NATRIURETIC PEPTIDE (BEAKER) (test 40343 pg/mL 0-100 oaci=021) BASIC METABOLIC [id number] 21:31:00 Test Item Value Reference Range Comments SODIUM (BEAKER) (test 140 meq/L 136-145 urww=899) POTASSIUM (BEAKER) (test 4.6 meq/L 3.5-5.1 lhrt=149) CHLORIDE (BEAKER) (test 104 meq/L 98-107 pvcq=675) CO2 (BEAKER) (test 25 meq/L 22-29 tyib=040) BLOOD UREA NITROGEN 33 mg/dL 7-21 (BEAKER) (test axtl=753) CREATININE (BEAKER) (test 1.78 mg/dL 0.57-1.25 jwzn=886) GLUCOSE RANDOM (BEAKER) 79 mg/dL 70-105 (test qogm=460) CALCIUM (BEAKER) (test 9.4 mg/dL 8.4-10.2 zjfl=391) EGFR (BEAKER) (test 34 mL/min/1.73 sq m ESTIMATED GFR IS NOT uqzt=5400) ACCURATE CREATININE CLEARANCE IN PREDICTING GLOMERULAR FILTRATION RATE. ESTIMATED GFR IS NOT APPLICABLE FOR DIALYSIS PATIENTS. [id number] 21:18:00 Test Item Value Reference Range Comments PARTIAL THROMBOPLASTIN TIME (BEAKER) (test 36.1 seconds 22.5-36.0 dqjw=546) PROTHROMBIN [id number] 21:17:00 Test Item Value Reference Range Comments PROTIME (BEAKER) (test riwf=759) 15.1 seconds 11.7-14.7 INR (BEAKER) (test gwyw=493) 1.2 <=5.9 RECOMMENDED COUMADIN/WARFARIN INR THERAPY RANGESSTANDARD DOSE: 2.0 - 3.0 Includes: PROPHYLAXIS forvenous thrombosis, systemic embolization; TREATMENT for venous thrombosis and/or pulmonary embolus.HIGH RISK: Target INR is 2.5-3.5 for patients with mechanical heart valves.CBC W/PLT COUNT & AUTO [id number] 21:05:00 Test Item Value Reference Range Comments WHITE BLOOD CELL COUNT (BEAKER) (test xwry=796) 5.3 K/ L 3.5-10.5 RED BLOOD CELL COUNT (BEAKER) (test mbwz=322) 3.43 M/ L 3.93-5.22 HEMOGLOBIN (BEAKER) (test mzdm=727) 10.6 GM/DL 11.2-15.7 HEMATOCRIT (BEAKER) (test tbuo=121) 36.3 % 34.1-44.9 MEAN CORPUSCULAR VOLUME (BEAKER) (test htlo=358) 105.8 fL 79.4-94.8 MEAN CORPUSCULAR HEMOGLOBIN (BEAKER) (test 30.9 pg 25.6-32.2 zynq=495) MEAN CORPUSCULAR HEMOGLOBIN CONC (BEAKER) (test 29.2 GM/DL 32.2-35.5 spvi=743) RED CELL DISTRIBUTION WIDTH (BEAKER) (test 17.9 % 11.7-14.4 avne=687) PLATELET COUNT (BEAKER) (test osaw=417) 294 K/CU MM 150-450 MEAN PLATELET VOLUME (BEAKER) (test fwof=087) 9.4 fL 9.4-12.3 NUCLEATED RED BLOOD CELLS (BEAKER) (test 0 /100 WBC 0-0 czga=405) NEUTROPHILS RELATIVE PERCENT (BEAKER) (test 75 % lrgz=245) LYMPHOCYTES RELATIVE PERCENT (BEAKER) (test 12 % tjoo=977) MONOCYTES RELATIVE PERCENT (BEAKER) (test 8 % gpvy=498) EOSINOPHILS RELATIVE PERCENT (BEAKER) (test 4 % pjbr=395) BASOPHILS RELATIVE PERCENT (BEAKER) (test 1 % pmdz=343) NEUTROPHILS ABSOLUTE COUNT (BEAKER) (test 3.97 K/ L 1.56-6.13 ouyn=734) LYMPHOCYTES ABSOLUTE COUNT (BEAKER) (test 0.64 K/ L 1.18-3.74 lgsr=586) MONOCYTES ABSOLUTE COUNT (BEAKER) (test 0.42 K/ L 0.24-0.36 kolp=435) EOSINOPHILS ABSOLUTE COUNT (BEAKER) (test 0.19 K/ L 0.04-0.36 eafh=604) BASOPHILS ABSOLUTE COUNT (BEAKER) (test 0.05 K/ L 0.01-0.08 yhhk=917) IMMATURE GRANULOCYTES-RELATIVE PERCENT (BEAKER) 0 % 0-1 (test edmd=9738) B-TYPE NATRIURETIC FACTOR (BNP)2017-08-18 15:08:00 Test Item Value Reference Range Comments B-TYPE NATRIURETIC PEPTIDE (BEAKER) (test 867 pg/mL 0-100 sjdi=150) BASIC METABOLIC [id number] 15:05:00 Test Item Value Reference Range Comments SODIUM (BEAKER) (test 140 meq/L 136-145 vnau=745) POTASSIUM (BEAKER) (test 4.6 meq/L 3.5-5.1 cudb=016) CHLORIDE (BEAKER) (test 98 meq/L 98-107 irpv=513) CO2 (BEAKER) (test 32 meq/L 22-29 pvnc=015) BLOOD UREA NITROGEN 30 mg/dL 7-21 (BEAKER) (test oknk=996) CREATININE (BEAKER) (test 2.58 mg/dL 0.57-1.25 ggwr=197) GLUCOSE RANDOM (BEAKER) 105 mg/dL 70-105 (test tptk=260) CALCIUM (BEAKER) (test 10.3 mg/dL 8.4-10.2 lajn=554) EGFR (BEAKER) (test 22 mL/min/1.73 sq m ESTIMATED GFR IS NOT axri=2815) ACCURATE CREATININE CLEARANCE IN PREDICTING GLOMERULAR FILTRATION RATE. ESTIMATED GFR IS NOT APPLICABLE FOR DIALYSIS PATIENTS. [id number] 15:02:00 Test Item Value Reference Range Comments MAGNESIUM (BEAKER) (test zmtq=787) 2.0 mg/dL 1.6-2.6 POCT-GLUCOSE [id number] 12:40:00 Test Item Value Reference Range Comments POC-GLUCOSE METER (BEAKER) 225 mg/dL 70-110 TESTED AT [address] (test bxuf=0854) [facility] [address] POCT-GLUCOSE [id number] 08:32:00 Test Item Value Reference Range Comments POC-GLUCOSE METER (BEAKER) 148 mg/dL 70-110 TESTED AT [address] (test eqrp=5643) [place] [id number] BASIC METABOLIC [id number] 05:56:00 Test Item Value Reference Range Comments SODIUM (BEAKER) (test 138 meq/L 136-145 dxge=905) POTASSIUM (BEAKER) (test 4.0 meq/L 3.5-5.1 oilo=324) CHLORIDE (BEAKER) (test 98 meq/L 98-107 qasv=545) CO2 (BEAKER) (test 29 meq/L 22-29 ozoe=817) BLOOD UREA NITROGEN 14 mg/dL 7-21 (BEAKER) (test tmbs=954) CREATININE (BEAKER) (test 1.85 mg/dL 0.57-1.25 vrar=389) GLUCOSE RANDOM (BEAKER) 116 mg/dL 70-105 (test rkjl=397) CALCIUM (BEAKER) (test 9.9 mg/dL 8.4-10.2 jepv=333) EGFR (BEAKER) (test 33 mL/min/1.73 sq m ESTIMATED GFR IS NOT lenh=7633) ACCURATE CREATININE CLEARANCE IN PREDICTING GLOMERULAR FILTRATION RATE. ESTIMATED GFR IS NOT APPLICABLE FOR DIALYSIS PATIENTS. POCT-GLUCOSE [id number] 21:38:00 Test Item Value Reference Range Comments POC-GLUCOSE METER (BEAKER) 162 mg/dL 70-110 TESTED AT [address] (test whib=7341) [facility] [address] POCT-GLUCOSE [id number] 17:02:00 Test Item Value Reference Range Comments POC-GLUCOSE METER (BEAKER) 160 mg/dL 70-110 TESTED AT [address] (test cqoy=4172) [facility] [address] POCT-GLUCOSE [id number] 12:33:00 Test Item Value Reference Range Comments POC-GLUCOSE METER (BEAKER) 163 mg/dL 70-110 TESTED AT [address] (test trwr=7178) [place] [id number] POCT-GLUCOSE [id number] 10:33:00 Test Item Value Reference Range Comments POC-GLUCOSE METER (BEAKER) 175 mg/dL 70-110 TESTED AT [address] (test auag=0115) [place] [address] [id number] 04:51:00 Test Item Value Reference Range Comments MAGNESIUM (BEAKER) (test 2.0 mg/dL 1.6-2.6 Specimen slightly hemolyzed owns=989) BASIC METABOLIC [id number] 04:51:00 Test Item Value Reference Range Comments SODIUM (BEAKER) (test 139 meq/L 136-145 jeei=229) POTASSIUM (BEAKER) (test 3.8 meq/L 3.5-5.1 Specimen slightly rmjh=473) hemolyzed CHLORIDE (BEAKER) (test 99 meq/L 98-107 cqju=833) CO2 (BEAKER) (test 27 meq/L 22-29 vrvu=345) BLOOD UREA NITROGEN 14 mg/dL 7-21 (BEAKER) (test ypqg=670) CREATININE (BEAKER) (test 1.61 mg/dL 0.57-1.25 Specimen slightly tqfr=254) hemolyzed GLUCOSE RANDOM (BEAKER) 139 mg/dL 70-105 (test klbz=731) CALCIUM (BEAKER) (test 10.0 mg/dL 8.4-10.2 dnvm=105) EGFR (BEAKER) (test 38 mL/min/1.73 sq m ESTIMATED GFR IS NOT xdgg=7846) ACCURATE CREATININE CLEARANCE IN PREDICTING GLOMERULAR FILTRATION RATE. ESTIMATED GFR IS NOT APPLICABLE FOR DIALYSIS PATIENTS. POCT-GLUCOSE [id number] 21:32:00 Test Item Value Reference Range Comments POC-GLUCOSE METER (BEAKER) 176 mg/dL 70-110 TESTED AT [address] (test qzlk=6884) [place] [id number] POCT-GLUCOSE [id number] 17:22:00 Test Item Value Reference Range Comments POC-GLUCOSE METER (BEAKER) 232 mg/dL 70-110 TESTED AT [address] (test suqq=5204) [facility] [address] POCT-GLUCOSE [id number] 12:47:00 Test Item Value Reference Range Comments POC-GLUCOSE METER (BEAKER) 162 mg/dL 70-110 TESTED AT [address] (test ezzb=1033) [place] [id number] POCT-GLUCOSE [id number] 08:15:00 Test Item Value Reference Range Comments POC-GLUCOSE METER (BEAKER) 149 mg/dL 70-110 TESTED AT [address] (test ruvh=2168) [place] [address] [id number] 07:05:00 Test Item Value Reference Range Comments MAGNESIUM (BEAKER) (test uopl=066) 1.9 mg/dL 1.6-2.6 BASIC METABOLIC [id number] 07:05:00 Test Item Value Reference Range Comments SODIUM (BEAKER) (test 136 meq/L 136-145 gzls=712) POTASSIUM (BEAKER) (test 3.8 meq/L 3.5-5.1 yxfe=530) CHLORIDE (BEAKER) (test 98 meq/L 98-107 imep=042) CO2 (BEAKER) (test 30 meq/L 22-29 kalj=040) BLOOD UREA NITROGEN 14 mg/dL 7-21 (BEAKER) (test mfku=667) CREATININE (BEAKER) (test 1.56 mg/dL 0.57-1.25 ddiu=775) GLUCOSE RANDOM (BEAKER) 129 mg/dL 70-105 (test bvyb=239) CALCIUM (BEAKER) (test 9.8 mg/dL 8.4-10.2 aujk=638) EGFR (BEAKER) (test 40 mL/min/1.73 sq m ESTIMATED GFR IS NOT dzrg=5751) ACCURATE CREATININE CLEARANCE IN PREDICTING GLOMERULAR FILTRATION RATE. ESTIMATED GFR IS NOT APPLICABLE FOR DIALYSIS PATIENTS. POCT-GLUCOSE [id number] 20:56:00 Test Item Value Reference Range Comments POC-GLUCOSE METER (BEAKER) 112 mg/dL 70-110 TESTED AT [address] (test ydbs=5600) [place] [id number] POCT-GLUCOSE [id number] 17:48:00 Test Item Value Reference Range Comments POC-GLUCOSE METER (BEAKER) 213 mg/dL 70-110 TESTED AT [address] (test tiay=6014) [place] [id number] POCT-GLUCOSE [id number] 11:40:00 Test Item Value Reference Range Comments POC-GLUCOSE METER (BEAKER) 208 mg/dL 70-110 TESTED AT [address] (test buer=6442) [place] [id number] POCT-GLUCOSE [id number] 07:43:00 Test Item Value Reference Range Comments POC-GLUCOSE METER (BEAKER) 144 mg/dL 70-110 TESTED AT [address] (test kapv=5427) [place] [address] [id number] 04:52:00 Test Item Value Reference Range Comments MAGNESIUM (BEAKER) (test 2.0 mg/dL 1.6-2.6 Specimen slightly hemolyzed spia=547) BASIC METABOLIC [id number] 04:52:00 Test Item Value Reference Range Comments SODIUM (BEAKER) (test 133 meq/L 136-145 bdvc=624) POTASSIUM (BEAKER) (test 4.7 meq/L 3.5-5.1 Specimen slightly qaku=370) hemolyzed CHLORIDE (BEAKER) (test 97 meq/L 98-107 geir=043) CO2 (BEAKER) (test 25 meq/L 22-29 jvvr=095) BLOOD UREA NITROGEN 17 mg/dL 7-21 (BEAKER) (test pfru=639) CREATININE (BEAKER) (test 1.63 mg/dL 0.57-1.25 Specimen slightly uwzy=544) hemolyzed GLUCOSE RANDOM (BEAKER) 141 mg/dL 70-105 (test lrqb=905) CALCIUM (BEAKER) (test 9.8 mg/dL 8.4-10.2 mhtz=407) EGFR (BEAKER) (test 38 mL/min/1.73 sq m ESTIMATED GFR IS NOT vhzp=2631) ACCURATE CREATININE CLEARANCE IN PREDICTING GLOMERULAR FILTRATION RATE. ESTIMATED GFR IS NOT APPLICABLE FOR DIALYSIS PATIENTS. POCT-GLUCOSE [id number] 21:29:00 Test Item Value Reference Range Comments POC-GLUCOSE METER (BEAKER) 198 mg/dL 70-110 TESTED AT [address] (test wrbk=5265) [place] [id number] POCT-GLUCOSE [id number] 17:54:00 Test Item Value Reference Range Comments POC-GLUCOSE METER (BEAKER) 176 mg/dL 70-110 TESTED AT [facility] [address] [facility] (test tshd=4579) [facility] [address] POCT-GLUCOSE [id number] 07:05:00 Test Item Value Reference Range Comments POC-GLUCOSE METER (BEAKER) 137 mg/dL 70-110 TESTED AT [facility] [address] [facility] (test ujlq=9050) [facility] [address] [id number] 06:53:00 Test Item Value Reference Range Comments MAGNESIUM (BEAKER) (test axzx=352) 2.0 mg/dL 1.6-2.6 BASIC METABOLIC [id number] 05:37:00 Test Item Value Reference Range Comments SODIUM (BEAKER) (test 136 meq/L 136-145 ggeg=906) POTASSIUM (BEAKER) (test 3.7 meq/L 3.5-5.1 bfsx=223) CHLORIDE (BEAKER) (test 97 meq/L 98-107 ituz=515) CO2 (BEAKER) (test 30 meq/L 22-29 bppy=471) BLOOD UREA NITROGEN 17 mg/dL 7-21 (BEAKER) (test qqjy=623) CREATININE (BEAKER) (test 1.60 mg/dL 0.57-1.25 bxaw=628) GLUCOSE RANDOM (BEAKER) 116 mg/dL 70-105 (test qchc=450) CALCIUM (BEAKER) (test 9.4 mg/dL 8.4-10.2 molz=786) EGFR (BEAKER) (test 39 mL/min/1.73 sq m ESTIMATED GFR IS NOT aoxm=0139) ACCURATE CREATININE CLEARANCE IN PREDICTING GLOMERULAR FILTRATION RATE. ESTIMATED GFR IS NOT APPLICABLE FOR DIALYSIS PATIENTS. CBC W/PLT COUNT & AUTO [id number] 05:02:00 Test Item Value Reference Range Comments WHITE BLOOD CELL COUNT (BEAKER) (test dtyu=035) 8.7 K/ L 3.5-10.5 RED BLOOD CELL COUNT (BEAKER) (test vjug=554) 2.43 M/ L 3.93-5.22 HEMOGLOBIN (BEAKER) (test wohm=400) 7.5 GM/DL 11.2-15.7 HEMATOCRIT (BEAKER) (test qaxu=509) 24.1 % 34.1-44.9 MEAN CORPUSCULAR VOLUME (BEAKER) (test tjgk=154) 99.2 fL 79.4-94.8 MEAN CORPUSCULAR HEMOGLOBIN (BEAKER) (test 30.9 pg 25.6-32.2 podp=054) MEAN CORPUSCULAR HEMOGLOBIN CONC (BEAKER) (test 31.1 GM/DL 32.2-35.5 ghwm=605) RED CELL DISTRIBUTION WIDTH (BEAKER) (test 15.8 % 11.7-14.4 aktf=909) PLATELET COUNT (BEAKER) (test yxbr=345) 586 K/CU MM 150-450 MEAN PLATELET VOLUME (BEAKER) (test rrjc=148) 9.5 fL 9.4-12.3 NUCLEATED RED BLOOD CELLS (BEAKER) (test 0 /100 WBC 0-0 zvft=105) NEUTROPHILS RELATIVE PERCENT (BEAKER) (test 74 % emrw=768) LYMPHOCYTES RELATIVE PERCENT (BEAKER) (test 15 % yfqo=831) MONOCYTES RELATIVE PERCENT (BEAKER) (test 8 % bgta=350) EOSINOPHILS RELATIVE PERCENT (BEAKER) (test 2 % xhzl=097) BASOPHILS RELATIVE PERCENT (BEAKER) (test 1 % azcw=645) NEUTROPHILS ABSOLUTE COUNT (BEAKER) (test 6.41 K/ L 1.56-6.13 ytol=103) LYMPHOCYTES ABSOLUTE COUNT (BEAKER) (test 1.32 K/ L 1.18-3.74 cvmo=595) MONOCYTES ABSOLUTE COUNT (BEAKER) (test 0.65 K/ L 0.24-0.36 ohyb=593) EOSINOPHILS ABSOLUTE COUNT (BEAKER) (test 0.20 K/ L 0.04-0.36 srpr=509) BASOPHILS ABSOLUTE COUNT (BEAKER) (test 0.08 K/ L 0.01-0.08 ejhw=518) IMMATURE GRANULOCYTES-RELATIVE PERCENT (BEAKER) 0 % 0-1 (test ztwm=8852) POCT-GLUCOSE [id number] 21:28:00 Test Item Value Reference Range Comments POC-GLUCOSE METER (BEAKER) 216 mg/dL 70-110 TESTED AT [facility] [address] (test lvba=1049) [facility] [address] POCT-GLUCOSE [id number] 18:25:00 Test Item Value Reference Range Comments POC-GLUCOSE METER (BEAKER) 182 mg/dL 70-110 TESTED AT [facility] [address] [facility] (test jggh=5384) [facility] [address] POCT-GLUCOSE [id number] 09:37:00 Test Item Value Reference Range Comments POC-GLUCOSE METER (BEAKER) 155 mg/dL 70-110 TESTED AT [facility] [address] [facility] (test dyqs=2984) [facility] [address] CALCIUM, [id number] 07:37:00 Test Item Value Reference Range Comments CALCIUM IONIZED (BEAKER) (test hmah=956) 1.11 mmol/L 1.12-1.27 PH, BLOOD (BEAKER) (test pjjs=8548) 7.39 [id number] 07:10:00 Test Item Value Reference Range Comments FERRITIN (BEAKER) (test xzqo=393) 445 ng/mL 5-275 IRON, TIBC, % SAT. (WITHOUT FERRITIN)2017-08-04 07:04:00 Test Item Value Reference Range Comments IRON (BEAKER) (test atzl=367) 55 ug/dL 40-160 TOTAL IRON BINDING CAPACITY (BEAKER) (test 198 ug/dL 250-450 doto=851) IRON % SATURATION (2) (BEAKER) (test ttcw=8618) 28 % 20-55 [id number] 06:57:00 Test Item Value Reference Range Comments PHOSPHORUS (BEAKER) (test flzw=909) 4.3 mg/dL 2.3-4.7 [id number] 06:57:00 Test Item Value Reference Range Comments MAGNESIUM (BEAKER) (test yafe=481) 2.1 mg/dL 1.6-2.6 BASIC METABOLIC [id number] 06:57:00 Test Item Value Reference Range Comments SODIUM (BEAKER) (test 138 meq/L 136-145 owlr=315) POTASSIUM (BEAKER) (test 3.8 meq/L 3.5-5.1 duxi=123) CHLORIDE (BEAKER) (test 99 meq/L 98-107 sylv=821) CO2 (BEAKER) (test 29 meq/L 22-29 bkyc=090) BLOOD UREA NITROGEN 18 mg/dL 7-21 (BEAKER) (test spnm=400) CREATININE (BEAKER) (test 1.75 mg/dL 0.57-1.25 tfvv=960) GLUCOSE RANDOM (BEAKER) 138 mg/dL 70-105 (test bccp=666) CALCIUM (BEAKER) (test 9.7 mg/dL 8.4-10.2 plhr=743) EGFR (BEAKER) (test 35 mL/min/1.73 sq m ESTIMATED GFR IS NOT jizj=4210) ACCURATE CREATININE CLEARANCE IN PREDICTING GLOMERULAR FILTRATION RATE. ESTIMATED GFR IS NOT APPLICABLE FOR DIALYSIS PATIENTS. B-TYPE NATRIURETIC FACTOR (BNP)2017-08-04 06:54:00 Test Item Value Reference Range Comments B-TYPE NATRIURETIC PEPTIDE (BEAKER) (test 778 pg/mL 0-100 hdpc=691) RETICULOCYTE [id number] 06:39:00 Test Item Value Reference Range Comments RETICULOCYTE COUNT PCT (BEAKER) (test anav=494) 8.3 % 0.5-1.7 CBC W/PLT COUNT & AUTO [id number] 06:39:00 Test Item Value Reference Range Comments WHITE BLOOD CELL COUNT (BEAKER) (test ftwb=349) 9.0 K/ L 3.5-10.5 RED BLOOD CELL COUNT (BEAKER) (test yjvv=758) 2.55 M/ L 3.93-5.22 HEMOGLOBIN (BEAKER) (test clan=328) 7.8 GM/DL 11.2-15.7 HEMATOCRIT (BEAKER) (test szbe=753) 25.4 % 34.1-44.9 MEAN CORPUSCULAR VOLUME (BEAKER) (test atww=270) 99.6 fL 79.4-94.8 MEAN CORPUSCULAR HEMOGLOBIN (BEAKER) (test 30.6 pg 25.6-32.2 zxco=940) MEAN CORPUSCULAR HEMOGLOBIN CONC (BEAKER) (test 30.7 GM/DL 32.2-35.5 qxgt=308) RED CELL DISTRIBUTION WIDTH (BEAKER) (test 15.9 % 11.7-14.4 iwki=507) PLATELET COUNT (BEAKER) (test yjrd=548) 591 K/CU MM 150-450 MEAN PLATELET VOLUME (BEAKER) (test wbpk=540) 9.5 fL 9.4-12.3 NUCLEATED RED BLOOD CELLS (BEAKER) (test 0 /100 WBC 0-0 zvzs=620) NEUTROPHILS RELATIVE PERCENT (BEAKER) (test 77 % xnvw=311) LYMPHOCYTES RELATIVE PERCENT (BEAKER) (test 13 % bghp=379) MONOCYTES RELATIVE PERCENT (BEAKER) (test 7 % btlo=239) EOSINOPHILS RELATIVE PERCENT (BEAKER) (test 2 % kbjd=443) BASOPHILS RELATIVE PERCENT (BEAKER) (test 1 % unpd=033) NEUTROPHILS ABSOLUTE COUNT (BEAKER) (test 6.97 K/ L 1.56-6.13 etgb=560) LYMPHOCYTES ABSOLUTE COUNT (BEAKER) (test 1.13 K/ L 1.18-3.74 qbte=921) MONOCYTES ABSOLUTE COUNT (BEAKER) (test 0.65 K/ L 0.24-0.36 nhyp=386) EOSINOPHILS ABSOLUTE COUNT (BEAKER) (test 0.18 K/ L 0.04-0.36 kuqj=698) BASOPHILS ABSOLUTE COUNT (BEAKER) (test 0.07 K/ L 0.01-0.08 cggr=142) IMMATURE GRANULOCYTES-RELATIVE PERCENT (BEAKER) 0 % 0-1 (test cjqr=6053) POCT-GLUCOSE [id number] 20:56:00 Test Item Value Reference Range Comments POC-GLUCOSE METER (BEAKER) 167 mg/dL 70-110 TESTED AT [address] (test tgun=6293) [place] [address] POCT-GLUCOSE [id number] 16:36:00 Test Item Value Reference Range Comments POC-GLUCOSE METER (BEAKER) 200 mg/dL 70-110 TESTED AT [address] (test wuqq=3983) [place] [address] POCT-GLUCOSE [id number] 12:59:00 Test Item Value Reference Range Comments POC-GLUCOSE METER (BEAKER) 202 mg/dL 70-110 TESTED AT [address] (test gdis=4365) [place] [address] POCT-GLUCOSE [id number] 07:37:00 Test Item Value Reference Range Comments POC-GLUCOSE METER (BEAKER) 154 mg/dL 70-110 TESTED AT [address] (test pldj=6767) [place] [address] CBC W/PLT COUNT & AUTO [id number] 06:49:00 Test Item Value Reference Range Comments WHITE BLOOD CELL COUNT (BEAKER) (test odsx=152) 9.8 K/ L 3.5-10.5 RED BLOOD CELL COUNT (BEAKER) (test eqle=154) 2.62 M/ L 3.93-5.22 HEMOGLOBIN (BEAKER) (test xuma=412) 8.1 GM/DL 11.2-15.7 HEMATOCRIT (BEAKER) (test bgmy=321) 25.9 % 34.1-44.9 MEAN CORPUSCULAR VOLUME (BEAKER) (test sdno=235) 98.9 fL 79.4-94.8 MEAN CORPUSCULAR HEMOGLOBIN (BEAKER) (test 30.9 pg 25.6-32.2 irhc=816) MEAN CORPUSCULAR HEMOGLOBIN CONC (BEAKER) (test 31.3 GM/DL 32.2-35.5 jioo=376) RED CELL DISTRIBUTION WIDTH (BEAKER) (test 15.8 % 11.7-14.4 goij=180) PLATELET COUNT (BEAKER) (test toai=349) 667 K/CU MM 150-450 MEAN PLATELET VOLUME (BEAKER) (test prgf=990) 9.4 fL 9.4-12.3 NUCLEATED RED BLOOD CELLS (BEAKER) (test 0 /100 WBC 0-0 rgmb=013) NEUTROPHILS RELATIVE PERCENT (BEAKER) (test 77 % xxfg=942) LYMPHOCYTES RELATIVE PERCENT (BEAKER) (test 13 % ozld=589) MONOCYTES RELATIVE PERCENT (BEAKER) (test 7 % ugyf=182) EOSINOPHILS RELATIVE PERCENT (BEAKER) (test 2 % rlzp=034) BASOPHILS RELATIVE PERCENT (BEAKER) (test 1 % uiqk=446) NEUTROPHILS ABSOLUTE COUNT (BEAKER) (test 7.57 K/ L 1.56-6.13 tzmu=559) LYMPHOCYTES ABSOLUTE COUNT (BEAKER) (test 1.23 K/ L 1.18-3.74 whev=875) MONOCYTES ABSOLUTE COUNT (BEAKER) (test 0.69 K/ L 0.24-0.36 fqmb=091) EOSINOPHILS ABSOLUTE COUNT (BEAKER) (test 0.16 K/ L 0.04-0.36 uoao=559) BASOPHILS ABSOLUTE COUNT (BEAKER) (test 0.08 K/ L 0.01-0.08 mxna=460) IMMATURE GRANULOCYTES-RELATIVE PERCENT (BEAKER) 1 % 0-1 (test mmqm=6367) CALCIUM, [id number] 06:38:00 Test Item Value Reference Range Comments CALCIUM IONIZED (BEAKER) (test nnbq=371) 1.07 mmol/L 1.12-1.27 PH, BLOOD (BEAKER) (test wtod=6376) 7.42 [id number] 06:08:00 Test Item Value Reference Range Comments PHOSPHORUS (BEAKER) (test jofu=615) 4.3 mg/dL 2.3-4.7 [id number] 06:08:00 Test Item Value Reference Range Comments MAGNESIUM (BEAKER) (test nvbz=902) 2.4 mg/dL 1.6-2.6 BASIC METABOLIC [id number] 06:08:00 Test Item Value Reference Range Comments SODIUM (BEAKER) (test 138 meq/L 136-145 rzaf=491) POTASSIUM (BEAKER) (test 4.0 meq/L 3.5-5.1 dczq=966) CHLORIDE (BEAKER) (test 99 meq/L 98-107 hbfj=610) CO2 (BEAKER) (test 29 meq/L 22-29 yljc=324) BLOOD UREA NITROGEN 15 mg/dL 7-21 (BEAKER) (test cfwi=067) CREATININE (BEAKER) (test 1.64 mg/dL 0.57-1.25 tkyx=875) GLUCOSE RANDOM (BEAKER) 135 mg/dL 70-105 (test djsw=759) CALCIUM (BEAKER) (test 9.5 mg/dL 8.4-10.2 xwfi=193) EGFR (BEAKER) (test 38 mL/min/1.73 sq m ESTIMATED GFR IS NOT nozp=5411) ACCURATE CREATININE CLEARANCE IN PREDICTING GLOMERULAR FILTRATION RATE. ESTIMATED GFR IS NOT APPLICABLE FOR DIALYSIS PATIENTS. POCT-GLUCOSE [id number] 21:13:00 Test Item Value Reference Range Comments POC-GLUCOSE METER (BEAKER) 145 mg/dL 70-110 TESTED AT [facility] [address] [place] [address] (test fwoh=9063) [facility] [address] POCT-GLUCOSE [id number] 17:08:00 Test Item Value Reference Range Comments POC-GLUCOSE METER (BEAKER) 134 mg/dL 70-110 TESTED AT [place] [id number] [facility] (test chjp=4100) [facility] [address] POCT-GLUCOSE [id number] 11:44:00 Test Item Value Reference Range Comments POC-GLUCOSE METER (BEAKER) 159 mg/dL 70-110 TESTED AT [facility] [address] [facility] (test wnlw=2577) [facility] [address] POCT-GLUCOSE [id number] 08:07:00 Test Item Value Reference Range Comments POC-GLUCOSE METER (BEAKER) 152 mg/dL 70-110 TESTED AT [facility] [address] [facility] (test uejy=2574) [facility] [address] CALCIUM, [id number] 05:26:00 Test Item Value Reference Range Comments CALCIUM IONIZED (BEAKER) (test ydlz=843) 1.10 mmol/L 1.12-1.27 PH, BLOOD (BEAKER) (test xcau=4585) 7.42 [id number] 05:05:00 Test Item Value Reference Range Comments PHOSPHORUS (BEAKER) (test vklh=031) 4.6 mg/dL 2.3-4.7 [id number] 05:05:00 Test Item Value Reference Range Comments MAGNESIUM (BEAKER) (test dckg=070) 1.6 mg/dL 1.6-2.6 COMPREHENSIVE METABOLIC [id number] 05:05:00 Test Item Value Reference Range Comments TOTAL PROTEIN (BEAKER) 6.9 gm/dL 6.0-8.3 (test jikv=629) ALBUMIN (BEAKER) (test 3.2 g/dL 3.5-5.0 rgvx=7482) ALKALINE PHOSPHATASE 55 U/L 40-150 (BEAKER) (test sxnl=884) BILIRUBIN TOTAL (BEAKER) 0.6 mg/dL 0.2-1.2 (test lvck=607) SODIUM (BEAKER) (test 139 meq/L 136-145 imhn=752) POTASSIUM (BEAKER) (test 3.9 meq/L 3.5-5.1 pdtj=726) CHLORIDE (BEAKER) (test 100 meq/L 98-107 qrok=615) CO2 (BEAKER) (test 27 meq/L 22-29 rayy=054) BLOOD UREA NITROGEN 15 mg/dL 7-21 (BEAKER) (test hmhv=389) CREATININE (BEAKER) (test 1.55 mg/dL 0.57-1.25 dkjm=628) GLUCOSE RANDOM (BEAKER) 125 mg/dL 70-105 (test hfri=148) CALCIUM (BEAKER) (test 9.2 mg/dL 8.4-10.2 bzlj=000) AST (SGOT) (BEAKER) (test 16 U/L 5-34 geyy=817) ALT (SGPT) (BEAKER) (test 11 U/L 6-55 yion=667) EGFR (BEAKER) (test 40 mL/min/1.73 sq m ESTIMATED GFR IS NOT tkho=1697) ACCURATE CREATININE CLEARANCE IN PREDICTING GLOMERULAR FILTRATION RATE. ESTIMATED GFR IS NOT APPLICABLE FOR DIALYSIS PATIENTS. CBC W/PLT COUNT & AUTO [id number] 04:57:00 Test Item Value Reference Range Comments WHITE BLOOD CELL COUNT (BEAKER) (test rehb=039) 10.8 K/ L 3.5-10.5 RED BLOOD CELL COUNT (BEAKER) (test ziln=859) 2.57 M/ L 3.93-5.22 HEMOGLOBIN (BEAKER) (test mjjz=578) 7.9 GM/DL 11.2-15.7 HEMATOCRIT (BEAKER) (test jdjn=693) 25.2 % 34.1-44.9 MEAN CORPUSCULAR VOLUME (BEAKER) (test vwee=922) 98.1 fL 79.4-94.8 MEAN CORPUSCULAR HEMOGLOBIN (BEAKER) (test 30.7 pg 25.6-32.2 yxlt=255) MEAN CORPUSCULAR HEMOGLOBIN CONC (BEAKER) (test 31.3 GM/DL 32.2-35.5 eqmg=532) RED CELL DISTRIBUTION WIDTH (BEAKER) (test 15.9 % 11.7-14.4 kbnn=528) PLATELET COUNT (BEAKER) (test drmi=137) 623 K/CU MM 150-450 MEAN PLATELET VOLUME (BEAKER) (test ozhq=125) 9.4 fL 9.4-12.3 NUCLEATED RED BLOOD CELLS (BEAKER) (test 0 /100 WBC 0-0 karu=304) NEUTROPHILS RELATIVE PERCENT (BEAKER) (test 79 % hlmf=336) LYMPHOCYTES RELATIVE PERCENT (BEAKER) (test 12 % eqpz=808) MONOCYTES RELATIVE PERCENT (BEAKER) (test 7 % qtqg=953) EOSINOPHILS RELATIVE PERCENT (BEAKER) (test 2 % dafl=429) BASOPHILS RELATIVE PERCENT (BEAKER) (test 1 % gdkf=457) NEUTROPHILS ABSOLUTE COUNT (BEAKER) (test 8.49 K/ L 1.56-6.13 qeey=103) LYMPHOCYTES ABSOLUTE COUNT (BEAKER) (test 1.28 K/ L 1.18-3.74 gqvl=803) MONOCYTES ABSOLUTE COUNT (BEAKER) (test 0.74 K/ L 0.24-0.36 wcfk=339) EOSINOPHILS ABSOLUTE COUNT (BEAKER) (test 0.18 K/ L 0.04-0.36 hfvd=132) BASOPHILS ABSOLUTE COUNT (BEAKER) (test 0.05 K/ L 0.01-0.08 zyze=991) IMMATURE GRANULOCYTES-RELATIVE PERCENT (BEAKER) 1 % 0-1 (test blai=8622) POCT-GLUCOSE [id number] 01:29:00 Test Item Value Reference Range Comments POC-GLUCOSE METER (BEAKER) 182 mg/dL 70-110 TESTED AT [address] (test ttit=8291) [place] [address] POCT-GLUCOSE [id number] 22:32:00 Test Item Value Reference Range Comments POC-GLUCOSE METER (BEAKER) 204 mg/dL 70-110 TESTED AT [address] (test eahk=2071) [place] [id number] POCT-GLUCOSE [id number] 18:53:00 Test Item Value Reference Range Comments POC-GLUCOSE METER (BEAKER) 154 mg/dL 70-110 TESTED AT [address] (test gmuo=3436) [place] [id number] POCT-GLUCOSE [id number] 15:50:00 Test Item Value Reference Range Comments POC-GLUCOSE METER (BEAKER) 172 mg/dL 70-110 TESTED AT [address] (test woro=3521) [place] [address] B-TYPE NATRIURETIC FACTOR (BNP)2017-08-01 15:41:00 Test Item Value Reference Range Comments B-TYPE NATRIURETIC PEPTIDE (BEAKER) (test 1253 pg/mL 0-100 bzvs=745) RAD, CHEST, 1 VIEW, NON [id number] 15:00:00Reason for exam:->SOBShould this be performed at the bedside?->YesFINAL REPORT Chest one view compared to July 28, 2017 Discussion: There is cardiac prominence. Lungs are grossly clear. No effusion or pneumothorax. There is either hiatal hernia or aortic tortuosity. IMPRESSIONS: No significant change. Signed: Tony Hsueport Verified Date/Time: 08/01/2017 15:00:05 Reading Location: [facility] B1 [id number] Consult Reading Room Electronicallysigned by: TONY HSU M.D. on 08/01/2017 03:00 PMPOCT-GLUCOSE [id number] 09:28:00 Test Item Value Reference Range Comments POC-GLUCOSE METER (BEAKER) 155 mg/dL 70-110 TESTED AT [facility] [address] [facility] (test lslc=9973) [facility] [address] BASIC METABOLIC [id number] 08:00:00 Test Item Value Reference Range Comments SODIUM (BEAKER) (test 138 meq/L 136-145 jddc=093) POTASSIUM (BEAKER) (test 3.8 meq/L 3.5-5.1 jcbh=947) CHLORIDE (BEAKER) (test 100 meq/L 98-107 nmvg=505) CO2 (BEAKER) (test 27 meq/L 22-29 uaaz=371) BLOOD UREA NITROGEN 14 mg/dL 7-21 (BEAKER) (test fyrd=202) CREATININE (BEAKER) (test 1.47 mg/dL 0.57-1.25 txin=111) GLUCOSE RANDOM (BEAKER) 150 mg/dL 70-105 (test tkad=788) CALCIUM (BEAKER) (test 9.0 mg/dL 8.4-10.2 nwtz=592) EGFR (BEAKER) (test 43 mL/min/1.73 sq m ESTIMATED GFR IS NOT caqn=5533) ACCURATE CREATININE CLEARANCE IN PREDICTING GLOMERULAR FILTRATION RATE. ESTIMATED GFR IS NOT APPLICABLE FOR DIALYSIS PATIENTS. CBC W/PLT COUNT & AUTO [id number] 07:54:00 Test Item Value Reference Range Comments WHITE BLOOD CELL COUNT (BEAKER) (test zfyq=645) 12.4 K/ L 3.5-10.5 RED BLOOD CELL COUNT (BEAKER) (test wlxg=253) 2.57 M/ L 3.93-5.22 HEMOGLOBIN (BEAKER) (test whqf=602) 7.7 GM/DL 11.2-15.7 HEMATOCRIT (BEAKER) (test lpng=781) 25.0 % 34.1-44.9 MEAN CORPUSCULAR VOLUME (BEAKER) (test rxdb=437) 97.3 fL 79.4-94.8 MEAN CORPUSCULAR HEMOGLOBIN (BEAKER) (test 30.0 pg 25.6-32.2 hljn=676) MEAN CORPUSCULAR HEMOGLOBIN CONC (BEAKER) (test 30.8 GM/DL 32.2-35.5 wepj=086) RED CELL DISTRIBUTION WIDTH (BEAKER) (test 15.8 % 11.7-14.4 zglw=848) PLATELET COUNT (BEAKER) (test ogrl=431) 582 K/CU MM 150-450 MEAN PLATELET VOLUME (BEAKER) (test wygp=158) 9.5 fL 9.4-12.3 NUCLEATED RED BLOOD CELLS (BEAKER) (test 0 /100 WBC 0-0 ndgk=761) NEUTROPHILS RELATIVE PERCENT (BEAKER) (test 82 % xuvr=099) LYMPHOCYTES RELATIVE PERCENT (BEAKER) (test 10 % yzhq=335) MONOCYTES RELATIVE PERCENT (BEAKER) (test 6 % xdip=555) EOSINOPHILS RELATIVE PERCENT (BEAKER) (test 1 % adgh=367) BASOPHILS RELATIVE PERCENT (BEAKER) (test 1 % ajmh=347) NEUTROPHILS ABSOLUTE COUNT (BEAKER) (test 10.08 K/ L 1.56-6.13 gaxa=652) LYMPHOCYTES ABSOLUTE COUNT (BEAKER) (test 1.19 K/ L 1.18-3.74 plll=703) MONOCYTES ABSOLUTE COUNT (BEAKER) (test 0.74 K/ L 0.24-0.36 wodu=072) EOSINOPHILS ABSOLUTE COUNT (BEAKER) (test 0.16 K/ L 0.04-0.36 idap=895) BASOPHILS ABSOLUTE COUNT (BEAKER) (test 0.10 K/ L 0.01-0.08 kmce=944) IMMATURE GRANULOCYTES-RELATIVE PERCENT (BEAKER) 1 % 0-1 (test ncej=8999) POCT-GLUCOSE [id number] 21:34:00 Test Item Value Reference Range Comments POC-GLUCOSE METER (BEAKER) 153 mg/dL 70-110 TESTED AT [facility] [address] (test jxvi=7717) [facility] [address] POCT-GLUCOSE [id number] 17:34:00 Test Item Value Reference Range Comments POC-GLUCOSE METER (BEAKER) 165 mg/dL 70-110 TESTED AT [address] (test dmtv=4413) [facility] [address] POCT-GLUCOSE [id number] 14:33:00 Test Item Value Reference Range Comments POC-GLUCOSE METER (BEAKER) 208 mg/dL 70-110 TESTED AT [address] (test hvvs=6345) [facility] [address] POCT-GLUCOSE [id number] 12:54:00 Test Item Value Reference Range Comments POC-GLUCOSE METER (BEAKER) 218 mg/dL 70-110 TESTED AT [address] (test ptxw=1329) [facility] [address] POCT-GLUCOSE [id number] 10:34:00 Test Item Value Reference Range Comments POC-GLUCOSE METER (BEAKER) 204 mg/dL 70-110 TESTED AT [address] (test ytxm=4597) [facility] [address] POCT-GLUCOSE [id number] 08:41:00 Test Item Value Reference Range Comments POC-GLUCOSE METER (BEAKER) 201 mg/dL 70-110 TESTED AT [address] (test lorz=3789) [facility] [address] [id number] 05:54:00 Test Item Value Reference Range Comments MAGNESIUM (BEAKER) (test ehul=945) 1.8 mg/dL 1.6-2.6 BASIC METABOLIC [id number] 05:54:00 Test Item Value Reference Range Comments SODIUM (BEAKER) (test 138 meq/L 136-145 hqkh=303) POTASSIUM (BEAKER) (test 3.6 meq/L 3.5-5.1 iksw=467) CHLORIDE (BEAKER) (test 100 meq/L 98-107 xfmr=253) CO2 (BEAKER) (test 25 meq/L 22-29 hshc=147) BLOOD UREA NITROGEN 14 mg/dL 7-21 (BEAKER) (test qkzt=951) CREATININE (BEAKER) (test 1.42 mg/dL 0.57-1.25 czjy=684) GLUCOSE RANDOM (BEAKER) 145 mg/dL 70-105 (test fdjv=493) CALCIUM (BEAKER) (test 9.4 mg/dL 8.4-10.2 hgrw=968) EGFR (BEAKER) (test 44 mL/min/1.73 sq m ESTIMATED GFR IS NOT qjne=5076) ACCURATE CREATININE CLEARANCE IN PREDICTING GLOMERULAR FILTRATION RATE. ESTIMATED GFR IS NOT APPLICABLE FOR DIALYSIS PATIENTS. CBC (HEMOGRAM ONLY)2017-07-31 05:42:00 Test Item Value Reference Range Comments WHITE BLOOD CELL COUNT (BEAKER) (test bdgr=669) 13.3 K/ L 3.5-10.5 RED BLOOD CELL COUNT (BEAKER) (test urzq=933) 2.65 M/ L 3.93-5.22 HEMOGLOBIN (BEAKER) (test iblk=816) 7.9 GM/DL 11.2-15.7 HEMATOCRIT (BEAKER) (test fasz=050) 25.9 % 34.1-44.9 MEAN CORPUSCULAR VOLUME (BEAKER) (test dxmi=064) 97.7 fL 79.4-94.8 MEAN CORPUSCULAR HEMOGLOBIN (BEAKER) (test 29.8 pg 25.6-32.2 atpt=310) MEAN CORPUSCULAR HEMOGLOBIN CONC (BEAKER) (test 30.5 GM/DL 32.2-35.5 qnqr=904) RED CELL DISTRIBUTION WIDTH (BEAKER) (test 15.3 % 11.7-14.4 mrzv=832) PLATELET COUNT (BEAKER) (test usae=063) 580 K/CU MM 150-450 MEAN PLATELET VOLUME (BEAKER) (test mwuh=522) 9.7 fL 9.4-12.3 NUCLEATED RED BLOOD CELLS (BEAKER) (test 0 /100 WBC 0-0 ekdp=534) POCT-GLUCOSE [id number] 21:21:00 Test Item Value Reference Range Comments POC-GLUCOSE METER (BEAKER) 206 mg/dL 70-110 TESTED AT [address] (test fyxt=5298) [facility] [address] POCT-GLUCOSE [id number] 17:50:00 Test Item Value Reference Range Comments POC-GLUCOSE METER (BEAKER) 160 mg/dL 70-110 TESTED AT [address] (test dupv=4226) [facility] [address] POCT-GLUCOSE [id number] 12:12:00 Test Item Value Reference Range Comments POC-GLUCOSE METER (BEAKER) 214 mg/dL 70-110 TESTED AT [address] (test xyaq=6767) [place] [address] POCT-GLUCOSE [id number] 07:59:00 Test Item Value Reference Range Comments POC-GLUCOSE METER (BEAKER) 146 mg/dL 70-110 TESTED AT [facility] [address] [facility] (test mtuc=7677) [facility] [address] CALCIUM, [id number] 07:23:00 Test Item Value Reference Range Comments CALCIUM IONIZED (BEAKER) (test swvc=617) 1.11 mmol/L 1.12-1.27 PH, BLOOD (BEAKER) (test xzyu=0403) 7.42 [id number] 07:07:00 Test Item Value Reference Range Comments PHOSPHORUS (BEAKER) (test pwhi=804) 3.5 mg/dL 2.3-4.7 [id number] 07:07:00 Test Item Value Reference Range Comments MAGNESIUM (BEAKER) (test anzj=219) 1.8 mg/dL 1.6-2.6 COMPREHENSIVE METABOLIC [id number] 07:07:00 Test Item Value Reference Range Comments TOTAL PROTEIN (BEAKER) 6.7 gm/dL 6.0-8.3 (test qclv=573) ALBUMIN (BEAKER) (test 3.1 g/dL 3.5-5.0 magm=4212) ALKALINE PHOSPHATASE 53 U/L 40-150 (BEAKER) (test fvrs=090) BILIRUBIN TOTAL (BEAKER) 0.6 mg/dL 0.2-1.2 (test uzrh=557) SODIUM (BEAKER) (test 139 meq/L 136-145 bmlq=212) POTASSIUM (BEAKER) (test 4.0 meq/L 3.5-5.1 yvex=876) CHLORIDE (BEAKER) (test 103 meq/L 98-107 gnno=851) CO2 (BEAKER) (test 27 meq/L 22-29 nlvk=447) BLOOD UREA NITROGEN 16 mg/dL 7-21 (BEAKER) (test ahts=845) CREATININE (BEAKER) (test 1.34 mg/dL 0.57-1.25 xzzk=108) GLUCOSE RANDOM (BEAKER) 116 mg/dL 70-105 (test ozpv=041) CALCIUM (BEAKER) (test 9.2 mg/dL 8.4-10.2 dkby=281) AST (SGOT) (BEAKER) (test 15 U/L 5-34 pfch=654) ALT (SGPT) (BEAKER) (test 11 U/L 6-55 dwbk=223) EGFR (BEAKER) (test 47 mL/min/1.73 sq m ESTIMATED GFR IS NOT tydm=1680) ACCURATE CREATININE CLEARANCE IN PREDICTING GLOMERULAR FILTRATION RATE. ESTIMATED GFR IS NOT APPLICABLE FOR DIALYSIS PATIENTS. CBC W/PLT COUNT & AUTO [id number] 06:52:00 Test Item Value Reference Range Comments WHITE BLOOD CELL COUNT (BEAKER) (test ybek=585) 12.8 K/ L 3.5-10.5 RED BLOOD CELL COUNT (BEAKER) (test wlzd=682) 2.43 M/ L 3.93-5.22 HEMOGLOBIN (BEAKER) (test nzle=559) 7.2 GM/DL 11.2-15.7 HEMATOCRIT (BEAKER) (test epuc=050) 23.8 % 34.1-44.9 MEAN CORPUSCULAR VOLUME (BEAKER) (test ppwl=806) 97.9 fL 79.4-94.8 MEAN CORPUSCULAR HEMOGLOBIN (BEAKER) (test 29.6 pg 25.6-32.2 jhnv=890) MEAN CORPUSCULAR HEMOGLOBIN CONC (BEAKER) (test 30.3 GM/DL 32.2-35.5 mnln=283) RED CELL DISTRIBUTION WIDTH (BEAKER) (test 15.0 % 11.7-14.4 smsr=730) PLATELET COUNT (BEAKER) (test qvbk=316) 456 K/CU MM 150-450 MEAN PLATELET VOLUME (BEAKER) (test wwwo=275) 10.3 fL 9.4-12.3 NUCLEATED RED BLOOD CELLS (BEAKER) (test 0 /100 WBC 0-0 wkwh=132) NEUTROPHILS RELATIVE PERCENT (BEAKER) (test 82 % mdlx=461) LYMPHOCYTES RELATIVE PERCENT (BEAKER) (test 9 % otzz=493) MONOCYTES RELATIVE PERCENT (BEAKER) (test 6 % nipj=772) EOSINOPHILS RELATIVE PERCENT (BEAKER) (test 2 % zpvu=570) BASOPHILS RELATIVE PERCENT (BEAKER) (test 0 % mujt=616) NEUTROPHILS ABSOLUTE COUNT (BEAKER) (test 10.52 K/ L 1.56-6.13 goev=510) LYMPHOCYTES ABSOLUTE COUNT (BEAKER) (test 1.19 K/ L 1.18-3.74 ujfp=998) MONOCYTES ABSOLUTE COUNT (BEAKER) (test 0.73 K/ L 0.24-0.36 hxul=259) EOSINOPHILS ABSOLUTE COUNT (BEAKER) (test 0.22 K/ L 0.04-0.36 eove=355) BASOPHILS ABSOLUTE COUNT (BEAKER) (test 0.04 K/ L 0.01-0.08 kknr=842) IMMATURE GRANULOCYTES-RELATIVE PERCENT (BEAKER) 1 % 0-1 (test dmyh=8842) POCT-GLUCOSE [id number] 21:47:00 Test Item Value Reference Range Comments POC-GLUCOSE METER (BEAKER) 106 mg/dL 70-110 TESTED AT [address] (test rffw=7072) [place] [address] POCT-GLUCOSE [id number] 18:50:00 Test Item Value Reference Range Comments POC-GLUCOSE METER (BEAKER) 175 mg/dL 70-110 TESTED AT [address] (test nzrl=2830) [place] [address] [id number] 15:18:00 Test Item Value Reference Range Comments POTASSIUM (BEAKER) (test bbcp=452) 3.7 meq/L 3.5-5.1 [id number] 15:18:00 Test Item Value Reference Range Comments MAGNESIUM (BEAKER) (test defl=511) 2.2 mg/dL 1.6-2.6 POCT-GLUCOSE [id number] 11:48:00 Test Item Value Reference Range Comments POC-GLUCOSE METER (BEAKER) 131 mg/dL 70-110 TESTED AT [address] (test ykxq=7552) [place] [address] BLOOD GAS, [id number] 11:46:00 Test Item Value Reference Range Comments PH ARTERIAL (BEAKER) (test ubfw=246) 7.43 7.35-7.45 PCO2 ARTERIAL (BEAKER) (test xvsf=207) 46 mmHg 35-45 PO2 ARTERIAL (BEAKER) (test qffz=488) 83 mmHg 80-90 O2 SATURATION ARTERIAL (BEAKER) (test fngp=261) 96.5 % 96.0-97.0 HCO3 ARTERIAL (BEAKER) (test nbrb=023) 30 mmol/L 21-29 BASE EXCESS ARTERIAL (BEAKER) (test vzmi=920) 4.8 mmol/L -2.0-3.0 PATIENT TEMPERATURE (BEAKER) (test wmgn=4222) 36.9 C FIO2 (BEAKER) (test euxf=6928) 36.0 % POCT-GLUCOSE [id number] 08:29:00 Test Item Value Reference Range Comments POC-GLUCOSE METER (BEAKER) 129 mg/dL 70-110 TESTED AT [facility] [address] [facility] (test skbv=6455) [place] [address] CALCIUM, [id number] 04:18:00 Test Item Value Reference Range Comments CALCIUM IONIZED (BEAKER) (test pfer=229) 1.11 mmol/L 1.12-1.27 PH, BLOOD (BEAKER) (test ywlz=6716) 7.40 B-TYPE NATRIURETIC FACTOR (BNP)2017-07-29 04:06:00 Test Item Value Reference Range Comments B-TYPE NATRIURETIC PEPTIDE (BEAKER) (test 982 pg/mL 0-100 isll=713) [id number] 03:59:00 Test Item Value Reference Range Comments PHOSPHORUS (BEAKER) (test vjwi=112) 3.6 mg/dL 2.3-4.7 [id number] 03:59:00 Test Item Value Reference Range Comments MAGNESIUM (BEAKER) (test ztdq=836) 1.9 mg/dL 1.6-2.6 BASIC METABOLIC [id number] 03:59:00 Test Item Value Reference Range Comments SODIUM (BEAKER) (test 141 meq/L 136-145 tyuj=438) POTASSIUM (BEAKER) (test 3.1 meq/L 3.5-5.1 rxyx=002) CHLORIDE (BEAKER) (test 103 meq/L 98-107 sndt=442) CO2 (BEAKER) (test 26 meq/L 22-29 zpfi=396) BLOOD UREA NITROGEN 17 mg/dL 7-21 (BEAKER) (test opnz=815) CREATININE (BEAKER) (test 1.43 mg/dL 0.57-1.25 yird=016) GLUCOSE RANDOM (BEAKER) 110 mg/dL 70-105 (test hzhr=288) CALCIUM (BEAKER) (test 9.0 mg/dL 8.4-10.2 njxn=053) EGFR (BEAKER) (test 44 mL/min/1.73 sq m ESTIMATED GFR IS NOT fdkj=0306) ACCURATE CREATININE CLEARANCE IN PREDICTING GLOMERULAR FILTRATION RATE. ESTIMATED GFR IS NOT APPLICABLE FOR DIALYSIS PATIENTS. CBC (HEMOGRAM ONLY)2017-07-29 03:51:00 Test Item Value Reference Range Comments WHITE BLOOD CELL COUNT (BEAKER) (test mbcg=811) 12.2 K/ L 3.5-10.5 RED BLOOD CELL COUNT (BEAKER) (test pfhl=608) 2.48 M/ L 3.93-5.22 HEMOGLOBIN (BEAKER) (test qosj=148) 7.4 GM/DL 11.2-15.7 HEMATOCRIT (BEAKER) (test gexq=962) 24.2 % 34.1-44.9 MEAN CORPUSCULAR VOLUME (BEAKER) (test hfsm=764) 97.6 fL 79.4-94.8 MEAN CORPUSCULAR HEMOGLOBIN (BEAKER) (test 29.8 pg 25.6-32.2 ldtm=905) MEAN CORPUSCULAR HEMOGLOBIN CONC (BEAKER) (test 30.6 GM/DL 32.2-35.5 bbja=992) RED CELL DISTRIBUTION WIDTH (BEAKER) (test 15.1 % 11.7-14.4 bbuo=563) PLATELET COUNT (BEAKER) (test iudf=254) 410 K/CU MM 150-450 MEAN PLATELET VOLUME (BEAKER) (test qpna=676) 10.2 fL 9.4-12.3 NUCLEATED RED BLOOD CELLS (BEAKER) (test 0 /100 WBC 0-0 ybro=003) POCT-GLUCOSE [id number] 23:55:00 Test Item Value Reference Range Comments POC-GLUCOSE METER (BEAKER) 164 mg/dL 70-110 TESTED AT [facility] [address] [facility] (test xiqd=4507) [facility] [address] HERPES VIRUS ANTIBODY, [id number] 11:02:00 Test Item Value Reference Range Comments HERPES VIRUS IGM (BEAKER) (test enqd=2410) Negative HSV IgM 1=NEGATIVEHSV IgM 2=NEGATIVETOXOPLASMA GONDII ANTIBODY, [id number] 11 :02:00 Test Item Value Reference Range Comments TOXOPLASMA IGM ANTIBODY (BEAKER) (test lquw=226) Negative RAD, CHEST, 1 VIEW, NON [id number] 10:48:00Reason for exam:->acute respiratory insufficiencyShould this be [...] Verified Date/Time: 07/28/2017 10:48:24 Reading Location: [facility] Radiology Reading Room [id number] 05:13:00 Test Item Value Reference Range Comments PHOSPHORUS (BEAKER) (test jans=678) 3.3 mg/dL 2.3-4.7 [id number] 05:13:00 Test Item Value Reference Range Comments MAGNESIUM (BEAKER) (test whdg=782) 1.9 mg/dL 1.6-2.6 HEPATIC FUNCTION [id number] 05:13:00 Test Item Value Reference Range Comments TOTAL PROTEIN (BEAKER) (test opnl=258) 7.5 gm/dL 6.0-8.3 ALBUMIN (BEAKER) (test rfiu=8892) 3.6 g/dL 3.5-5.0 BILIRUBIN TOTAL (BEAKER) (test wxnf=333) 0.9 mg/dL 0.2-1.2 BILIRUBIN DIRECT (BEAKER) (test tafi=221) 0.4 mg/dL 0.1-0.5 ALKALINE PHOSPHATASE (BEAKER) (test czmw=049) 66 U/L 40-150 AST (SGOT) (BEAKER) (test jwzm=908) 21 U/L 5-34 ALT (SGPT) (BEAKER) (test lyvk=851) 17 U/L 6-55 COMPREHENSIVE METABOLIC [id number] 05:13:00 Test Item Value Reference Range Comments TOTAL PROTEIN (BEAKER) 7.5 gm/dL 6.0-8.3 (test vetx=182) ALBUMIN (BEAKER) (test 3.6 g/dL 3.5-5.0 jfut=4637) ALKALINE PHOSPHATASE 66 U/L 40-150 (BEAKER) (test qspp=255) BILIRUBIN TOTAL (BEAKER) 0.9 mg/dL 0.2-1.2 (test zwyo=202) SODIUM (BEAKER) (test 143 meq/L 136-145 xofk=070) POTASSIUM (BEAKER) (test 3.5 meq/L 3.5-5.1 gcua=647) CHLORIDE (BEAKER) (test 105 meq/L 98-107 hlnv=681) CO2 (BEAKER) (test 25 meq/L 22-29 cfff=333) BLOOD UREA NITROGEN 18 mg/dL 7-21 (BEAKER) (test qzod=603) CREATININE (BEAKER) (test 1.43 mg/dL 0.57-1.25 yjnm=892) GLUCOSE RANDOM (BEAKER) 130 mg/dL 70-105 (test lxxh=797) CALCIUM (BEAKER) (test 9.6 mg/dL 8.4-10.2 xqps=232) AST (SGOT) (BEAKER) (test 21 U/L 5-34 hpva=430) ALT (SGPT) (BEAKER) (test 17 U/L 6-55 oygh=766) EGFR (BEAKER) (test 44 mL/min/1.73 sq m ESTIMATED GFR IS NOT qelv=3546) ACCURATE CREATININE CLEARANCE IN PREDICTING GLOMERULAR FILTRATION RATE. ESTIMATED GFR IS NOT APPLICABLE FOR DIALYSIS PATIENTS. LACTATE DEHYDROGENASE (LDH)2017-07-28 05:13:00 Test Item Value Reference Range Comments LACTATE DEHYDROGENASE (BEAKER) (test jaqb=920) 639 U/L 125-220 CBC W/PLT COUNT & AUTO [id number] 04:57:00 Test Item Value Reference Range Comments WHITE BLOOD CELL COUNT (BEAKER) (test ixiy=696) 13.6 K/ L 3.5-10.5 RED BLOOD CELL COUNT (BEAKER) (test lxmo=240) 2.86 M/ L 3.93-5.22 HEMOGLOBIN (BEAKER) (test fttl=266) 8.5 GM/DL 11.2-15.7 HEMATOCRIT (BEAKER) (test qqqe=522) 28.9 % 34.1-44.9 MEAN CORPUSCULAR VOLUME (BEAKER) (test eirb=026) 101.0 fL 79.4-94.8 MEAN CORPUSCULAR HEMOGLOBIN (BEAKER) (test 29.7 pg 25.6-32.2 fzei=335) MEAN CORPUSCULAR HEMOGLOBIN CONC (BEAKER) (test 29.4 GM/DL 32.2-35.5 lvdr=364) RED CELL DISTRIBUTION WIDTH (BEAKER) (test 15.2 % 11.7-14.4 rkpn=936) PLATELET COUNT (BEAKER) (test vlmn=227) 375 K/CU MM 150-450 MEAN PLATELET VOLUME (BEAKER) (test dvsc=521) 10.7 fL 9.4-12.3 NUCLEATED RED BLOOD CELLS (BEAKER) (test 0 /100 WBC 0-0 xzqo=148) NEUTROPHILS RELATIVE PERCENT (BEAKER) (test 82 % lakm=206) LYMPHOCYTES RELATIVE PERCENT (BEAKER) (test 9 % ipgp=942) MONOCYTES RELATIVE PERCENT (BEAKER) (test 6 % eppo=403) EOSINOPHILS RELATIVE PERCENT (BEAKER) (test 2 % exju=105) BASOPHILS RELATIVE PERCENT (BEAKER) (test 1 % xzfd=059) NEUTROPHILS ABSOLUTE COUNT (BEAKER) (test 11.11 K/ L 1.56-6.13 jpbn=125) LYMPHOCYTES ABSOLUTE COUNT (BEAKER) (test 1.17 K/ L 1.18-3.74 jabg=371) MONOCYTES ABSOLUTE COUNT (BEAKER) (test 0.83 K/ L 0.24-0.36 caso=936) EOSINOPHILS ABSOLUTE COUNT (BEAKER) (test 0.25 K/ L 0.04-0.36 gwiw=549) BASOPHILS ABSOLUTE COUNT (BEAKER) (test 0.07 K/ L 0.01-0.08 dnck=980) IMMATURE GRANULOCYTES-RELATIVE PERCENT (BEAKER) 1 % 0-1 (test vmxp=0581) OCCULT BLOOD, [id number] 01:02:00 Test Item Value Reference Range Comments FECAL OCCULT BLOOD (BEAKER) (test svvb=278) Negative Negative POCT-GLUCOSE [id number] 00:46:00 Test Item Value Reference Range Comments POC-GLUCOSE METER (BEAKER) 149 mg/dL 70-110 TESTED AT [address] (test hodf=5140) [place] [id number] C. DIFFICILE GDH [id number] 19:51:00 Test Item Value Reference Range Comments CDT TOXIN (test Negative Negative vpev=[id number]) CDT GDH ANTIGEN (test Negative Negative No indication of Clostridium fbsi=[id number]) difficile infection and no colonization. Discontinue enteric isolation and therapy. Testing performed by [employer] Rapid Cassette Assay. For GDH, published sensitivity of the assay is 98.7% compared to cytotoxicity testing. For Toxin AB, published sensitivity is 87.8% and specificity 99.4% compared to cytotoxicity testing.Verification of kit performance was done by the [facility] Microbiology Lab prior to clinical use.POCT-GLUCOSE [id number] 18:11:00 Test Item Value Reference Range Comments POC-GLUCOSE METER (BEAKER) 201 mg/dL 70-110 TESTED AT [address] (test xolh=4436) [place] [id number] BLOOD GAS, [id number] 17:03:00 Test Item Value Reference Range Comments PH ARTERIAL (BEAKER) (test dlmz=137) 7.41 7.35-7.45 PCO2 ARTERIAL (BEAKER) (test uskc=671) 45 mmHg 35-45 PO2 ARTERIAL (BEAKER) (test fwxp=031) 94 mmHg 80-90 O2 SATURATION ARTERIAL (BEAKER) (test fujs=398) 97.3 % 96.0-97.0 HCO3 ARTERIAL (BEAKER) (test qzbe=288) 28 mmol/L 21-29 BASE EXCESS ARTERIAL (BEAKER) (test qied=415) 2.3 mmol/L -2.0-3.0 PATIENT TEMPERATURE (BEAKER) (test dzcz=1756) 36.6 C FIO2 (BEAKER) (test jqzm=7325) 40.0 % POCT-GLUCOSE [id number] 12:44:00 Test Item Value Reference Range Comments POC-GLUCOSE METER (BEAKER) 117 mg/dL 70-110 TESTED AT [address] (test pqlu=1767) [place] [address] B-TYPE NATRIURETIC FACTOR (BNP)2017-07-27 11:13:00 Test Item Value Reference Range Comments B-TYPE NATRIURETIC PEPTIDE (BEAKER) (test 1198 pg/mL 0-100 vfjd=084) LACTIC ACID, VENOUS, WHOLE [id number] 11:12:00 Test Item Value Reference Range Comments LACTATE BLOOD VENOUS (2) (BEAKER) (test 0.7 mmol/L 0.5-2.2 zadf=0633) Effective 08/06/2015: Units/Reference Range ChangeNew: 0.5-2.2 mmol/L Previous: 5 -20 mg/dLOXYGEN SATURATION, [id number] 10:28:00 Test Item Value Reference Range Comments O2 SATURATION (MEASURED) (BEAKER) (test bgwd=8106) 59.6 % RAD, CHEST, 1 VIEW, NON [id number] 08:23:00Reason for exam:->acute respiratory insufficiencyShould this be [...] Reading Location: [facility] [address] [facility] Radiology Reading Room POCT-GLUCOSE [id number] 07:53:00 Test Item Value Reference Range Comments POC-GLUCOSE METER (BEAKER) 124 mg/dL 70-110 TESTED AT [address] (test ghxe=2745) [facility] [address] BASIC METABOLIC [id number] 06:33:00 Test Item Value Reference Range Comments SODIUM (BEAKER) (test 144 meq/L 136-145 gupj=057) POTASSIUM (BEAKER) (test 3.8 meq/L 3.5-5.1 sxbk=404) CHLORIDE (BEAKER) (test 109 meq/L 98-107 atse=097) CO2 (BEAKER) (test 24 meq/L 22-29 vvtc=698) BLOOD UREA NITROGEN 20 mg/dL 7-21 (BEAKER) (test zvte=059) CREATININE (BEAKER) (test 1.40 mg/dL 0.57-1.25 xwim=345) GLUCOSE RANDOM (BEAKER) 111 mg/dL 70-105 (test hpmn=334) CALCIUM (BEAKER) (test 8.8 mg/dL 8.4-10.2 dkxr=875) EGFR (BEAKER) (test 45 mL/min/1.73 sq m ESTIMATED GFR IS NOT zrdu=9026) ACCURATE CREATININE CLEARANCE IN PREDICTING GLOMERULAR FILTRATION RATE. ESTIMATED GFR IS NOT APPLICABLE FOR DIALYSIS PATIENTS. [id number] 06:24:00 Test Item Value Reference Range Comments PHOSPHORUS (BEAKER) (test invn=647) 3.3 mg/dL 2.3-4.7 BASIC METABOLIC [id number] 06:24:00 Test Item Value Reference Range Comments SODIUM (BEAKER) (test 145 meq/L 136-145 huhh=302) POTASSIUM (BEAKER) (test 3.8 meq/L 3.5-5.1 ksbh=485) CHLORIDE (BEAKER) (test 110 meq/L 98-107 wyjz=622) CO2 (BEAKER) (test 24 meq/L 22-29 vazd=990) BLOOD UREA NITROGEN 21 mg/dL 7-21 (BEAKER) (test zhiz=661) CREATININE (BEAKER) (test 1.39 mg/dL 0.57-1.25 mulm=311) GLUCOSE RANDOM (BEAKER) 112 mg/dL 70-105 (test bcax=792) CALCIUM (BEAKER) (test 8.9 mg/dL 8.4-10.2 snjh=778) EGFR (BEAKER) (test 45 mL/min/1.73 sq m ESTIMATED GFR IS NOT qjhm=2330) ACCURATE CREATININE CLEARANCE IN PREDICTING GLOMERULAR FILTRATION RATE. ESTIMATED GFR IS NOT APPLICABLE FOR DIALYSIS PATIENTS. [id number] 03:27:00 Test Item Value Reference Range Comments PROCALCITONIN (BEAKER) (test nral=7021) 0.28 ng/mL <0.05 SEPSIS RISK (ng/mL)Low: 0.05-0.50Intermediate: 0.51-2.00High: & gt;=2.01LACTATE DEHYDROGENASE (LDH)2017-07-27 03:07:00 Test Item Value Reference Range Comments LACTATE DEHYDROGENASE (BEAKER) (test mqxq=631) 615 U/L 125-220 HEPATIC FUNCTION [id number] 03:07:00 Test Item Value Reference Range Comments TOTAL PROTEIN (BEAKER) (test nsiu=158) 6.8 gm/dL 6.0-8.3 ALBUMIN (BEAKER) (test xqsf=6665) 3.2 g/dL 3.5-5.0 BILIRUBIN TOTAL (BEAKER) (test gynb=039) 0.9 mg/dL 0.2-1.2 BILIRUBIN DIRECT (BEAKER) (test kdlf=811) 0.5 mg/dL 0.1-0.5 ALKALINE PHOSPHATASE (BEAKER) (test poto=254) 58 U/L 40-150 AST (SGOT) (BEAKER) (test pajp=077) 21 U/L 5-34 ALT (SGPT) (BEAKER) (test agka=320) 15 U/L 6-55 CALCIUM, [id number] 02:57:00 Test Item Value Reference Range Comments CALCIUM IONIZED (BEAKER) (test pagc=057) 1.14 mmol/L 1.12-1.27 PH, BLOOD (BEAKER) (test irye=5083) 7.42 CBC W/PLT COUNT & AUTO [id number] 02:56:00 Test Item Value Reference Range Comments WHITE BLOOD CELL COUNT (BEAKER) (test xoxz=883) 12.4 K/ L 3.5-10.5 RED BLOOD CELL COUNT (BEAKER) (test zftf=179) 2.50 M/ L 3.93-5.22 HEMOGLOBIN (BEAKER) (test gjdw=588) 7.4 GM/DL 11.2-15.7 HEMATOCRIT (BEAKER) (test suwg=000) 24.7 % 34.1-44.9 MEAN CORPUSCULAR VOLUME (BEAKER) (test oluz=989) 98.8 fL 79.4-94.8 MEAN CORPUSCULAR HEMOGLOBIN (BEAKER) (test 29.6 pg 25.6-32.2 ioya=947) MEAN CORPUSCULAR HEMOGLOBIN CONC (BEAKER) (test 30.0 GM/DL 32.2-35.5 kmnh=852) RED CELL DISTRIBUTION WIDTH (BEAKER) (test 15.1 % 11.7-14.4 xtlx=216) PLATELET COUNT (BEAKER) (test tawv=330) 233 K/CU MM 150-450 MEAN PLATELET VOLUME (BEAKER) (test tzcf=754) 10.5 fL 9.4-12.3 NUCLEATED RED BLOOD CELLS (BEAKER) (test 0 /100 WBC 0-0 qsaw=120) NEUTROPHILS RELATIVE PERCENT (BEAKER) (test 80 % cclm=074) LYMPHOCYTES RELATIVE PERCENT (BEAKER) (test 9 % wvlp=651) MONOCYTES RELATIVE PERCENT (BEAKER) (test 7 % nbpz=370) EOSINOPHILS RELATIVE PERCENT (BEAKER) (test 2 % vvtg=587) BASOPHILS RELATIVE PERCENT (BEAKER) (test 0 % uqvp=892) NEUTROPHILS ABSOLUTE COUNT (BEAKER) (test 9.94 K/ L 1.56-6.13 fqdt=678) LYMPHOCYTES ABSOLUTE COUNT (BEAKER) (test 1.15 K/ L 1.18-3.74 wsbn=294) MONOCYTES ABSOLUTE COUNT (BEAKER) (test 0.90 K/ L 0.24-0.36 uoat=419) EOSINOPHILS ABSOLUTE COUNT (BEAKER) (test 0.24 K/ L 0.04-0.36 pklu=189) BASOPHILS ABSOLUTE COUNT (BEAKER) (test 0.05 K/ L 0.01-0.08 qnhd=865) IMMATURE GRANULOCYTES-RELATIVE PERCENT (BEAKER) 1 % 0-1 (test zdvh=4979) [id number] 01:29:00 Test Item Value Reference Range Comments PHOSPHORUS (BEAKER) (test eztz=162) 3.5 mg/dL 2.3-4.7 BASIC METABOLIC [id number] 01:29:00 Test Item Value Reference Range Comments SODIUM (BEAKER) (test 145 meq/L 136-145 xwvc=318) POTASSIUM (BEAKER) (test 3.4 meq/L 3.5-5.1 kika=369) CHLORIDE (BEAKER) (test 107 meq/L 98-107 bmwc=845) CO2 (BEAKER) (test 26 meq/L 22-29 ztng=718) BLOOD UREA NITROGEN 21 mg/dL 7-21 (BEAKER) (test wszh=466) CREATININE (BEAKER) (test 1.47 mg/dL 0.57-1.25 brme=196) GLUCOSE RANDOM (BEAKER) 138 mg/dL 70-105 (test mlll=704) CALCIUM (BEAKER) (test 9.1 mg/dL 8.4-10.2 tkpd=431) EGFR (BEAKER) (test 43 mL/min/1.73 sq m ESTIMATED GFR IS NOT zqep=4718) ACCURATE CREATININE CLEARANCE IN PREDICTING GLOMERULAR FILTRATION RATE. ESTIMATED GFR IS NOT APPLICABLE FOR DIALYSIS PATIENTS. POCT-GLUCOSE [id number] 22:08:00 Test Item Value Reference Range Comments POC-GLUCOSE METER (BEAKER) 166 mg/dL 70-110 TESTED AT [address] (test znvv=0100) [facility] [address] [id number] 21:22:00 Test Item Value Reference Range Comments MAGNESIUM (BEAKER) (test rrfd=794) 2.2 mg/dL 1.6-2.6 [id number] 19:23:00 Test Item Value Reference Range Comments PHOSPHORUS (BEAKER) (test chsc=798) 2.9 mg/dL 2.3-4.7 BASIC METABOLIC [id number] 19:23:00 Test Item Value Reference Range Comments SODIUM (BEAKER) (test 145 meq/L 136-145 gtkb=180) POTASSIUM (BEAKER) (test 3.6 meq/L 3.5-5.1 owgi=529) CHLORIDE (BEAKER) (test 109 meq/L 98-107 guqs=337) CO2 (BEAKER) (test 24 meq/L 22-29 tpoz=453) BLOOD UREA NITROGEN 22 mg/dL 7-21 (BEAKER) (test petc=795) CREATININE (BEAKER) (test 1.48 mg/dL 0.57-1.25 zala=636) GLUCOSE RANDOM (BEAKER) 150 mg/dL 70-105 (test xapx=318) CALCIUM (BEAKER) (test 9.0 mg/dL 8.4-10.2 qori=472) EGFR (BEAKER) (test 42 mL/min/1.73 sq m ESTIMATED GFR IS NOT znwe=5239) ACCURATE CREATININE CLEARANCE IN PREDICTING GLOMERULAR FILTRATION RATE. ESTIMATED GFR IS NOT APPLICABLE FOR DIALYSIS PATIENTS. POCT-GLUCOSE [id number] 18:13:00 Test Item Value Reference Range Comments POC-GLUCOSE METER (BEAKER) 188 mg/dL 70-110 TESTED AT [place] [id number] [facility] (test eckw=0286) [facility] [address] [id number] 13:12:00 Test Item Value Reference Range Comments PHOSPHORUS (BEAKER) (test znoh=940) 2.7 mg/dL 2.3-4.7 BASIC METABOLIC [id number] 13:12:00 Test Item Value Reference Range Comments SODIUM (BEAKER) (test 144 meq/L 136-145 pdyb=846) POTASSIUM (BEAKER) (test 3.5 meq/L 3.5-5.1 ngsw=959) CHLORIDE (BEAKER) (test 108 meq/L 98-107 cbxk=926) CO2 (BEAKER) (test 26 meq/L 22-29 aptl=761) BLOOD UREA NITROGEN 23 mg/dL 7-21 (BEAKER) (test njxx=255) CREATININE (BEAKER) (test 1.45 mg/dL 0.57-1.25 fqpk=826) GLUCOSE RANDOM (BEAKER) 183 mg/dL 70-105 (test hswj=004) CALCIUM (BEAKER) (test 8.5 mg/dL 8.4-10.2 zbzb=365) EGFR (BEAKER) (test 43 mL/min/1.73 sq m ESTIMATED GFR IS NOT duun=7855) ACCURATE CREATININE CLEARANCE IN PREDICTING GLOMERULAR FILTRATION RATE. ESTIMATED GFR IS NOT APPLICABLE FOR DIALYSIS PATIENTS. POCT-GLUCOSE [id number] 12:07:00 Test Item Value Reference Range Comments POC-GLUCOSE METER (BEAKER) 203 mg/dL 70-110 TESTED AT [facility] [address] [facility] (test ybmz=5452) [facility] [address] [id number] 09:50:00 Test Item Value Reference Range Comments MAGNESIUM (BEAKER) (test bztd=775) 2.6 mg/dL 1.6-2.6 RAD, CHEST, 1 VIEW, NON [id number] 08:06:00Reason for exam:->acute respiratory insufficiencyShould this be [...] Location: [facility] POCT-GLUCOSE [id number] 07:58:00 Test Item Value Reference Range Comments POC-GLUCOSE METER (BEAKER) 176 mg/dL 70-110 TESTED AT [facility] [address] [facility] (test mwkn=9057) [facility] [address] OXYGEN SATURATION, [id number] 05:23:00 Test Item Value Reference Range Comments O2 SATURATION (MEASURED) (BEAKER) (test sbwx=2821) 64.5 % calibrationBLOOD GAS, [id number] 04:43:00 Test Item Value Reference Range Comments PH ARTERIAL (BEAKER) (test icoe=387) 7.44 7.35-7.45 PCO2 ARTERIAL (BEAKER) (test qmud=093) 44 mmHg 35-45 PO2 ARTERIAL (BEAKER) (test apxw=490) 127 mmHg 80-90 O2 SATURATION ARTERIAL (BEAKER) (test rdku=221) 98.6 % 96.0-97.0 HCO3 ARTERIAL (BEAKER) (test gsoq=963) 29 mmol/L 21-29 BASE EXCESS ARTERIAL (BEAKER) (test vuvg=926) 4.6 mmol/L -2.0-3.0 PATIENT TEMPERATURE (BEAKER) (test qhhf=9065) 37.3 C FIO2 (BEAKER) (test koje=6106) 100.0 % [id number] 04:31:00 Test Item Value Reference Range Comments PHOSPHORUS (BEAKER) (test eehx=178) 3.4 mg/dL 2.3-4.7 [id number] 04:31:00 Test Item Value Reference Range Comments MAGNESIUM (BEAKER) (test ioov=197) 2.2 mg/dL 1.6-2.6 BASIC METABOLIC [id number] 04:31:00 Test Item Value Reference Range Comments SODIUM (BEAKER) (test 146 meq/L 136-145 rdeo=773) POTASSIUM (BEAKER) (test 3.7 meq/L 3.5-5.1 jguu=026) CHLORIDE (BEAKER) (test 108 meq/L 98-107 prue=290) CO2 (BEAKER) (test 28 meq/L 22-29 xcdc=250) BLOOD UREA NITROGEN 23 mg/dL 7-21 (BEAKER) (test oxkk=972) CREATININE (BEAKER) (test 1.51 mg/dL 0.57-1.25 gxij=315) GLUCOSE RANDOM (BEAKER) 151 mg/dL 70-105 (test bqan=822) CALCIUM (BEAKER) (test 9.4 mg/dL 8.4-10.2 zjde=121) EGFR (BEAKER) (test 41 mL/min/1.73 sq m ESTIMATED GFR IS NOT kqpn=5209) ACCURATE CREATININE CLEARANCE IN PREDICTING GLOMERULAR FILTRATION RATE. ESTIMATED GFR IS NOT APPLICABLE FOR DIALYSIS PATIENTS. HEPATIC FUNCTION [id number] 04:31:00 Test Item Value Reference Range Comments TOTAL PROTEIN (BEAKER) (test xjpw=277) 6.6 gm/dL 6.0-8.3 ALBUMIN (BEAKER) (test exkx=8095) 3.2 g/dL 3.5-5.0 BILIRUBIN TOTAL (BEAKER) (test zcxc=510) 1.0 mg/dL 0.2-1.2 BILIRUBIN DIRECT (BEAKER) (test awti=778) 0.5 mg/dL 0.1-0.5 ALKALINE PHOSPHATASE (BEAKER) (test nkxd=947) 60 U/L 40-150 AST (SGOT) (BEAKER) (test jrks=091) 25 U/L 5-34 ALT (SGPT) (BEAKER) (test xhfs=430) 18 U/L 6-55 COMPREHENSIVE METABOLIC [id number] 04:31:00 Test Item Value Reference Range Comments TOTAL PROTEIN (BEAKER) 6.6 gm/dL 6.0-8.3 (test nbhu=176) ALBUMIN (BEAKER) (test 3.2 g/dL 3.5-5.0 vktn=5544) ALKALINE PHOSPHATASE 60 U/L 40-150 (BEAKER) (test ullj=751) BILIRUBIN TOTAL (BEAKER) 1.0 mg/dL 0.2-1.2 (test uhvd=694) SODIUM (BEAKER) (test 146 meq/L 136-145 rvti=396) POTASSIUM (BEAKER) (test 3.7 meq/L 3.5-5.1 lazo=323) CHLORIDE (BEAKER) (test 108 meq/L 98-107 dqrm=992) CO2 (BEAKER) (test 28 meq/L 22-29 ugur=079) BLOOD UREA NITROGEN 23 mg/dL 7-21 (BEAKER) (test ydif=679) CREATININE (BEAKER) (test 1.51 mg/dL 0.57-1.25 xqqu=653) GLUCOSE RANDOM (BEAKER) 151 mg/dL 70-105 (test dnlt=175) CALCIUM (BEAKER) (test 9.4 mg/dL 8.4-10.2 ajys=249) AST (SGOT) (BEAKER) (test 25 U/L 5-34 hgbo=073) ALT (SGPT) (BEAKER) (test 18 U/L 6-55 snbt=710) EGFR (BEAKER) (test 41 mL/min/1.73 sq m ESTIMATED GFR IS NOT vink=0022) ACCURATE CREATININE CLEARANCE IN PREDICTING GLOMERULAR FILTRATION RATE. ESTIMATED GFR IS NOT APPLICABLE FOR DIALYSIS PATIENTS. LACTATE DEHYDROGENASE (LDH)2017-07-26 04:31:00 Test Item Value Reference Range Comments LACTATE DEHYDROGENASE (BEAKER) (test tftp=804) 661 U/L 125-220 CALCIUM, [id number] 04:23:00 Test Item Value Reference Range Comments CALCIUM IONIZED (BEAKER) (test umvk=424) 1.15 mmol/L 1.12-1.27 PH, BLOOD (BEAKER) (test fywl=1405) 7.47 CBC W/PLT COUNT & AUTO [id number] 04:20:00 Test Item Value Reference Range Comments WHITE BLOOD CELL COUNT (BEAKER) (test wvkm=675) 13.0 K/ L 3.5-10.5 RED BLOOD CELL COUNT (BEAKER) (test ydap=631) 2.56 M/ L 3.93-5.22 HEMOGLOBIN (BEAKER) (test wtat=530) 7.6 GM/DL 11.2-15.7 HEMATOCRIT (BEAKER) (test orhx=348) 25.4 % 34.1-44.9 MEAN CORPUSCULAR VOLUME (BEAKER) (test cwkk=296) 99.2 fL 79.4-94.8 MEAN CORPUSCULAR HEMOGLOBIN (BEAKER) (test 29.7 pg 25.6-32.2 vsve=676) MEAN CORPUSCULAR HEMOGLOBIN CONC (BEAKER) (test 29.9 GM/DL 32.2-35.5 jnjs=844) RED CELL DISTRIBUTION WIDTH (BEAKER) (test 15.0 % 11.7-14.4 axkj=548) PLATELET COUNT (BEAKER) (test aiuc=672) 161 K/CU MM 150-450 MEAN PLATELET VOLUME (BEAKER) (test jvhb=965) 11.0 fL 9.4-12.3 NUCLEATED RED BLOOD CELLS (BEAKER) (test 0 /100 WBC 0-0 ibqi=039) NEUTROPHILS RELATIVE PERCENT (BEAKER) (test 79 % dwoj=605) LYMPHOCYTES RELATIVE PERCENT (BEAKER) (test 10 % eeaf=076) MONOCYTES RELATIVE PERCENT (BEAKER) (test 7 % tatw=214) EOSINOPHILS RELATIVE PERCENT (BEAKER) (test 2 % ntaj=873) BASOPHILS RELATIVE PERCENT (BEAKER) (test 1 % ouwh=639) NEUTROPHILS ABSOLUTE COUNT (BEAKER) (test 10.33 K/ L 1.56-6.13 fqfn=841) LYMPHOCYTES ABSOLUTE COUNT (BEAKER) (test 1.35 K/ L 1.18-3.74 xrrg=504) MONOCYTES ABSOLUTE COUNT (BEAKER) (test 0.96 K/ L 0.24-0.36 flqf=838) EOSINOPHILS ABSOLUTE COUNT (BEAKER) (test 0.19 K/ L 0.04-0.36 hzmf=995) BASOPHILS ABSOLUTE COUNT (BEAKER) (test 0.07 K/ L 0.01-0.08 ninw=033) IMMATURE GRANULOCYTES-RELATIVE PERCENT (BEAKER) 1 % 0-1 (test xeoj=9799) [id number] 21:19:00 Test Item Value Reference Range Comments PHOSPHORUS (BEAKER) (test effm=659) 4.4 mg/dL 2.3-4.7 [id number] 21:19:00 Test Item Value Reference Range Comments MAGNESIUM (BEAKER) (test gbul=042) 2.1 mg/dL 1.6-2.6 BASIC METABOLIC [id number] 21:19:00 Test Item Value Reference Range Comments SODIUM (BEAKER) (test 146 meq/L 136-145 szka=531) POTASSIUM (BEAKER) (test 3.9 meq/L 3.5-5.1 nhcq=270) CHLORIDE (BEAKER) (test 108 meq/L 98-107 jdyx=702) CO2 (BEAKER) (test 27 meq/L 22-29 mvsh=554) BLOOD UREA NITROGEN 24 mg/dL 7-21 (BEAKER) (test pihz=079) CREATININE (BEAKER) (test 1.64 mg/dL 0.57-1.25 zffj=816) GLUCOSE RANDOM (BEAKER) 120 mg/dL 70-105 (test hdwr=702) CALCIUM (BEAKER) (test 9.5 mg/dL 8.4-10.2 pqho=921) EGFR (BEAKER) (test 38 mL/min/1.73 sq m ESTIMATED GFR IS NOT tbwm=4888) ACCURATE CREATININE CLEARANCE IN PREDICTING GLOMERULAR FILTRATION RATE. ESTIMATED GFR IS NOT APPLICABLE FOR DIALYSIS PATIENTS. POCT-GLUCOSE [id number] 18:36:00 Test Item Value Reference Range Comments POC-GLUCOSE METER (BEAKER) 129 mg/dL 70-110 TESTED AT [address] (test zgkz=9573) [place] [address] POCT-GLUCOSE [id number] 16:19:00 Test Item Value Reference Range Comments POC-GLUCOSE METER (BEAKER) 132 mg/dL 70-110 TESTED AT [address] (test kfow=6220) [place] [address] [id number] 13:57:00 Test Item Value Reference Range Comments PHOSPHORUS (BEAKER) (test sxkg=896) 4.2 mg/dL 2.3-4.7 BASIC METABOLIC [id number] 13:57:00 Test Item Value Reference Range Comments SODIUM (BEAKER) (test 147 meq/L 136-145 hfuv=247) POTASSIUM (BEAKER) (test 3.7 meq/L 3.5-5.1 qrhz=454) CHLORIDE (BEAKER) (test 110 meq/L 98-107 qahc=938) CO2 (BEAKER) (test 25 meq/L 22-29 enop=995) BLOOD UREA NITROGEN 23 mg/dL 7-21 (BEAKER) (test zmgd=520) CREATININE (BEAKER) (test 1.58 mg/dL 0.57-1.25 atao=988) GLUCOSE RANDOM (BEAKER) 129 mg/dL 70-105 (test fgup=400) CALCIUM (BEAKER) (test 9.2 mg/dL 8.4-10.2 lcbx=690) EGFR (BEAKER) (test 39 mL/min/1.73 sq m ESTIMATED GFR IS NOT kvgr=3668) ACCURATE CREATININE CLEARANCE IN PREDICTING GLOMERULAR FILTRATION RATE. ESTIMATED GFR IS NOT APPLICABLE FOR DIALYSIS PATIENTS. BLOOD GAS, [id number] 13:48:00 Test Item Value Reference Range Comments PH ARTERIAL (BEAKER) (test ybpw=859) 7.42 7.35-7.45 PCO2 ARTERIAL (BEAKER) (test ppvq=657) 47 mmHg 35-45 PO2 ARTERIAL (BEAKER) (test nxcm=621) 202 mmHg 80-90 O2 SATURATION ARTERIAL (BEAKER) (test uorj=226) 99.4 % 96.0-97.0 HCO3 ARTERIAL (BEAKER) (test yxzq=600) 29 mmol/L 21-29 BASE EXCESS ARTERIAL (BEAKER) (test tndr=655) 4.4 mmol/L -2.0-3.0 PATIENT TEMPERATURE (BEAKER) (test bcle=3833) 37.6 C FIO2 (BEAKER) (test pese=1216) 100.0 % POCT-GLUCOSE [id number] 13:31:00 Test Item Value Reference Range Comments POC-GLUCOSE METER (BEAKER) 128 mg/dL 70-110 TESTED AT [address] (test esbw=5933) [place] [address] POCT-GLUCOSE [id number] 11:02:00 Test Item Value Reference Range Comments POC-GLUCOSE METER (BEAKER) 137 mg/dL 70-110 TESTED AT [address] (test uivk=3017) [place] [id number] POCT-GLUCOSE [id number] 11:02:00 Test Item Value Reference Range Comments POC-GLUCOSE METER (BEAKER) 141 mg/dL 70-110 TESTED AT [address] (test hxoy=5194) [place] [address] POCT-GLUCOSE [id number] 11:02:00 Test Item Value Reference Range Comments POC-GLUCOSE METER (BEAKER) 104 mg/dL 70-110 TESTED AT [address] (test jtyw=0379) [place] [address] BLOOD [id number] 11:00:00 Test Item Value Reference Range Comments CULTURE (BEAKER) (test ujnr=2515) No growth in 5 days BLOOD [id number] 11:00:00 Test Item Value Reference Range Comments CULTURE (BEAKER) (test hupr=3993) No growth in 5 days CBC W/PLT COUNT & AUTO [id number] 08:54:00 Test Item Value Reference Range Comments WHITE BLOOD CELL COUNT (BEAKER) (test gsej=238) 13.8 K/ L 3.5-10.5 RED BLOOD CELL COUNT (BEAKER) (test kcqv=025) 2.54 M/ L 3.93-5.22 HEMOGLOBIN (BEAKER) (test zfxf=489) 7.7 GM/DL 11.2-15.7 HEMATOCRIT (BEAKER) (test uocu=466) 25.2 % 34.1-44.9 MEAN CORPUSCULAR VOLUME (BEAKER) (test awcd=974) 99.2 fL 79.4-94.8 MEAN CORPUSCULAR HEMOGLOBIN (BEAKER) (test 30.3 pg 25.6-32.2 lild=678) MEAN CORPUSCULAR HEMOGLOBIN CONC (BEAKER) (test 30.6 GM/DL 32.2-35.5 ggzh=704) RED CELL DISTRIBUTION WIDTH (BEAKER) (test 15.2 % 11.7-14.4 ogwz=562) PLATELET COUNT (BEAKER) (test cqek=526) 127 K/CU MM 150-450 MEAN PLATELET VOLUME (BEAKER) (test zgng=482) 10.6 fL 9.4-12.3 NUCLEATED RED BLOOD CELLS (BEAKER) (test 0 /100 WBC 0-0 taah=003) NEUTROPHILS RELATIVE PERCENT (BEAKER) (test 81 % rbvh=056) LYMPHOCYTES RELATIVE PERCENT (BEAKER) (test 8 % ubye=410) MONOCYTES RELATIVE PERCENT (BEAKER) (test 9 % jcgl=519) EOSINOPHILS RELATIVE PERCENT (BEAKER) (test 1 % lxlc=347) BASOPHILS RELATIVE PERCENT (BEAKER) (test 0 % dylm=198) NEUTROPHILS ABSOLUTE COUNT (BEAKER) (test 11.11 K/ L 1.56-6.13 cews=276) LYMPHOCYTES ABSOLUTE COUNT (BEAKER) (test 1.14 K/ L 1.18-3.74 iamp=621) MONOCYTES ABSOLUTE COUNT (BEAKER) (test 1.20 K/ L 0.24-0.36 bcnc=203) EOSINOPHILS ABSOLUTE COUNT (BEAKER) (test 0.15 K/ L 0.04-0.36 eyht=446) BASOPHILS ABSOLUTE COUNT (BEAKER) (test 0.04 K/ L 0.01-0.08 hykz=919) IMMATURE GRANULOCYTES-RELATIVE PERCENT (BEAKER) 1 % 0-1 (test vfeg=5374) BLOOD GAS, [id number] 08:40:00 Test Item Value Reference Range Comments PH ARTERIAL (BEAKER) (test aikk=714) 7.43 7.35-7.45 PCO2 ARTERIAL (BEAKER) (test ryvq=908) 35 mmHg 35-45 PO2 ARTERIAL (BEAKER) (test egcs=195) 82 mmHg 80-90 O2 SATURATION ARTERIAL (BEAKER) (test mhhr=398) 95.7 % 96.0-97.0 HCO3 ARTERIAL (BEAKER) (test niih=223) 22 mmol/L 21-29 BASE EXCESS ARTERIAL (BEAKER) (test qvrx=816) -1.3 mmol/L -2.0-3.0 PATIENT TEMPERATURE (BEAKER) (test ebch=1150) 38.3 C FIO2 (BEAKER) (test jfgn=8683) 40.0 % [id number] 06:59:00 Test Item Value Reference Range Comments PHOSPHORUS (BEAKER) (test jjax=622) 3.4 mg/dL 2.3-4.7 [id number] 06:59:00 Test Item Value Reference Range Comments MAGNESIUM (BEAKER) (test budu=476) 2.0 mg/dL 1.6-2.6 BASIC METABOLIC [id number] 06:59:00 Test Item Value Reference Range Comments SODIUM (BEAKER) (test 147 meq/L 136-145 hcxt=059) POTASSIUM (BEAKER) (test 3.7 meq/L 3.5-5.1 epkh=180) CHLORIDE (BEAKER) (test 111 meq/L 98-107 oczj=603) CO2 (BEAKER) (test 23 meq/L 22-29 msac=562) BLOOD UREA NITROGEN 24 mg/dL 7-21 (BEAKER) (test jdjf=888) CREATININE (BEAKER) (test 1.57 mg/dL 0.57-1.25 xjcy=665) GLUCOSE RANDOM (BEAKER) 121 mg/dL 70-105 (test uqgq=201) CALCIUM (BEAKER) (test 9.0 mg/dL 8.4-10.2 dzdl=185) EGFR (BEAKER) (test 39 mL/min/1.73 sq m ESTIMATED GFR IS NOT ctju=2650) ACCURATE CREATININE CLEARANCE IN PREDICTING GLOMERULAR FILTRATION RATE. ESTIMATED GFR IS NOT APPLICABLE FOR DIALYSIS PATIENTS. POCT-GLUCOSE [id number] 06:27:00 Test Item Value Reference Range Comments POC-GLUCOSE METER (BEAKER) 95 mg/dL 70-110 TESTED AT [facility] [address] (test dfoj=4206) [facility] [address] POCT-GLUCOSE [id number] 06:04:00 Test Item Value Reference Range Comments POC-GLUCOSE METER (BEAKER) 128 mg/dL 70-110 TESTED AT [address] (test bttj=4625) [place] [address] [id number] 05:36:00 Test Item Value Reference Range Comments PHOSPHORUS (BEAKER) (test phor=513) 3.4 mg/dL 2.3-4.7 BASIC METABOLIC [id number] 05:36:00 Test Item Value Reference Range Comments SODIUM (BEAKER) (test 146 meq/L 136-145 nnuk=108) POTASSIUM (BEAKER) (test 3.6 meq/L 3.5-5.1 kmnx=334) CHLORIDE (BEAKER) (test 110 meq/L 98-107 sdav=501) CO2 (BEAKER) (test 25 meq/L 22-29 smig=736) BLOOD UREA NITROGEN 25 mg/dL 7-21 (BEAKER) (test rqnf=845) CREATININE (BEAKER) (test 1.58 mg/dL 0.57-1.25 dgyw=195) GLUCOSE RANDOM (BEAKER) 114 mg/dL 70-105 (test nbgu=989) CALCIUM (BEAKER) (test 8.9 mg/dL 8.4-10.2 ecuq=763) EGFR (BEAKER) (test 39 mL/min/1.73 sq m ESTIMATED GFR IS NOT hscb=4394) ACCURATE CREATININE CLEARANCE IN PREDICTING GLOMERULAR FILTRATION RATE. ESTIMATED GFR IS NOT APPLICABLE FOR DIALYSIS PATIENTS. HEPATIC FUNCTION [id number] 05:36:00 Test Item Value Reference Range Comments TOTAL PROTEIN (BEAKER) (test vyhq=293) 6.3 gm/dL 6.0-8.3 ALBUMIN (BEAKER) (test omnh=2671) 3.1 g/dL 3.5-5.0 BILIRUBIN TOTAL (BEAKER) (test ldam=873) 1.1 mg/dL 0.2-1.2 BILIRUBIN DIRECT (BEAKER) (test xrhi=376) 0.7 mg/dL 0.1-0.5 ALKALINE PHOSPHATASE (BEAKER) (test zwxc=765) 54 U/L 40-150 AST (SGOT) (BEAKER) (test bqnv=055) 23 U/L 5-34 ALT (SGPT) (BEAKER) (test ymga=541) 17 U/L 6-55 LACTATE DEHYDROGENASE (LDH)2017-07-25 05:36:00 Test Item Value Reference Range Comments LACTATE DEHYDROGENASE (BEAKER) (test yqco=347) 695 U/L 125-220 POCT-GLUCOSE [id number] 05:24:00 Test Item Value Reference Range Comments POC-GLUCOSE METER (BEAKER) 102 mg/dL 70-110 TESTED AT [facility] [address] (test kkii=1424) [facility] [address] RAD, CHEST, 1 VIEW, NON [id number] 04:43:00Reason for exam:-> impellaShould this be performed at the bedside?->YesFINAL REPORT Chest one view. Clinical history: impella Comparison: Chest radiograph 07/24/17 Technique: A single frontal view of the chest was obtained. Findings: Cardiomediastinal contours are unchanged. Endotracheal and feeding tubes as well as a right IJ [place] catheter are unchanged in position. There are patchy bibasilar opacities which may represent atelectasis and/or pneumonia. There is mild elevation of the left hemidiaphragm. There is no definite pleural effusionor pneumothorax. Signed: Alexia Ramirez Verified Date/Time: 07/25/2017 04:43:27 ReadingLocation[facility] B1 C013T Transitional Reading Room [id number] 00:51:00 Test Item Value Reference Range Comments PHOSPHORUS (BEAKER) (test dbaz=001) 3.4 mg/dL 2.3-4.7 BASIC METABOLIC [id number] 00:51:00 Test Item Value Reference Range Comments SODIUM (BEAKER) (test 146 meq/L 136-145 kekp=792) POTASSIUM (BEAKER) (test 4.0 meq/L 3.5-5.1 vszo=602) CHLORIDE (BEAKER) (test 110 meq/L 98-107 zspc=546) CO2 (BEAKER) (test 26 meq/L 22-29 xoza=084) BLOOD UREA NITROGEN 26 mg/dL 7-21 (BEAKER) (test zoke=980) CREATININE (BEAKER) (test 1.53 mg/dL 0.57-1.25 ukao=550) GLUCOSE RANDOM (BEAKER) 105 mg/dL 70-105 (test dkrk=071) CALCIUM (BEAKER) (test 8.8 mg/dL 8.4-10.2 otml=153) EGFR (BEAKER) (test 41 mL/min/1.73 sq m ESTIMATED GFR IS NOT mhlp=9437) ACCURATE CREATININE CLEARANCE IN PREDICTING GLOMERULAR FILTRATION RATE. ESTIMATED GFR IS NOT APPLICABLE FOR DIALYSIS PATIENTS. POCT-GLUCOSE [id number] 00:32:00 Test Item Value Reference Range Comments POC-GLUCOSE METER (BEAKER) 119 mg/dL 70-110 TESTED AT [address] (test uxge=1986) [place] [address] POCT-GLUCOSE [id number] 00:27:00 Test Item Value Reference Range Comments POC-GLUCOSE METER (BEAKER) 114 mg/dL 70-110 TESTED AT [address] (test tyft=3320) [place] [address] POCT-GLUCOSE [id number] 23:58:00 Test Item Value Reference Range Comments POC-GLUCOSE METER (BEAKER) 117 mg/dL 70-110 TESTED AT [address] (test pcko=8328) [place] [address] [id number] 21:24:00 Test Item Value Reference Range Comments MAGNESIUM (BEAKER) (test iojm=396) 2.0 mg/dL 1.6-2.6 POCT-GLUCOSE [id number] 20:24:00 Test Item Value Reference Range Comments POC-GLUCOSE METER (BEAKER) 130 mg/dL 70-110 TESTED AT [facility] [address] (test rmks=5604) [facility] [address] [id number] 19:20:00 Test Item Value Reference Range Comments POTASSIUM (BEAKER) (test ytxu=253) 3.6 meq/L 3.5-5.1 [id number] 19:20:00 Test Item Value Reference Range Comments GLUCOSE RANDOM (BEAKER) (test vqba=816) 168 mg/dL 70-105 [id number] 18:01:00 Test Item Value Reference Range Comments PHOSPHORUS (BEAKER) (test pvei=287) 3.7 mg/dL 2.3-4.7 BASIC METABOLIC [id number] 18:01:00 Test Item Value Reference Range Comments SODIUM (BEAKER) (test 145 meq/L 136-145 kpvq=652) POTASSIUM (BEAKER) (test 3.9 meq/L 3.5-5.1 nldm=500) CHLORIDE (BEAKER) (test 109 meq/L 98-107 ximp=007) CO2 (BEAKER) (test 27 meq/L 22-29 wsmo=518) BLOOD UREA NITROGEN 26 mg/dL 7-21 (BEAKER) (test fdun=839) CREATININE (BEAKER) (test 1.47 mg/dL 0.57-1.25 acfp=152) GLUCOSE RANDOM (BEAKER) 210 mg/dL 70-105 (test sqml=385) CALCIUM (BEAKER) (test 8.5 mg/dL 8.4-10.2 rbms=818) EGFR (BEAKER) (test 43 mL/min/1.73 sq m ESTIMATED GFR IS NOT utrq=8248) ACCURATE CREATININE CLEARANCE IN PREDICTING GLOMERULAR FILTRATION RATE. ESTIMATED GFR IS NOT APPLICABLE FOR DIALYSIS PATIENTS. GLUCOSE-STAT [id number] 17:14:00 Test Item Value Reference Range Comments GLUCOSE RANDOM (BEAKER) (test ymwg=681) 208 mg/dL 70-110 BLOOD GAS, [id number] 17:13:00 Test Item Value Reference Range Comments PH ARTERIAL (BEAKER) (test bdko=434) 7.44 7.35-7.45 PCO2 ARTERIAL (BEAKER) (test wclk=544) 43 mmHg 35-45 PO2 ARTERIAL (BEAKER) (test kcks=890) 58 mmHg 80-90 O2 SATURATION ARTERIAL (BEAKER) (test ozrp=941) 90.8 % 96.0-97.0 HCO3 ARTERIAL (BEAKER) (test cxpv=345) 28 mmol/L 21-29 BASE EXCESS ARTERIAL (BEAKER) (test bkyv=463) 3.9 mmol/L -2.0-3.0 PATIENT TEMPERATURE (BEAKER) (test ecsg=7050) 37.0 C FIO2 (BEAKER) (test lfqs=5288) 100.0 % RAD, CHEST, 1 VIEW, NON [id number] 14:00:00Reason for exam:->post intubationShould this be performed at the bedside?->YesFINAL REPORT AP chest. HISTORY: Endotracheal tube COMPARISON: 07/24/2017 IMPRESSION:Endotracheal tube projects deep in the trachea, approximately 1-2 cm above the level of the toro. Cardiomegaly similar to previous. Worsening aeration at the left lung base. Mild pulmonary vascular congestion. No pneumothorax. Signed: Mitchel Jarquin MDReport Verified Date/Time: 07/24/2017 14:00:17 Reading Location: [address] Body Reading Room [id number] 13:40:00 Test Item Value Reference Range Comments PHOSPHORUS (BEAKER) (test qhlq=276) 4.3 mg/dL 2.3-4.7 [id number] 13:40:00 Test Item Value Reference Range Comments MAGNESIUM (BEAKER) (test tflu=347) 2.0 mg/dL 1.6-2.6 BASIC METABOLIC [id number] 13:40:00 Test Item Value Reference Range Comments SODIUM (BEAKER) (test 145 meq/L 136-145 spvj=744) POTASSIUM (BEAKER) (test 3.9 meq/L 3.5-5.1 kzct=171) CHLORIDE (BEAKER) (test 108 meq/L 98-107 vepn=443) CO2 (BEAKER) (test 24 meq/L 22-29 domu=907) BLOOD UREA NITROGEN 28 mg/dL 7-21 (BEAKER) (test zzfe=672) CREATININE (BEAKER) (test 1.43 mg/dL 0.57-1.25 nruf=800) GLUCOSE RANDOM (BEAKER) 206 mg/dL 70-105 (test mfdm=549) CALCIUM (BEAKER) (test 8.5 mg/dL 8.4-10.2 idma=635) EGFR (BEAKER) (test 44 mL/min/1.73 sq m ESTIMATED GFR IS NOT tiqg=4247) ACCURATE CREATININE CLEARANCE IN PREDICTING GLOMERULAR FILTRATION RATE. ESTIMATED GFR IS NOT APPLICABLE FOR DIALYSIS PATIENTS. LACTIC ACID, ARTERIAL, WHOLE [id number] 13:36:00 Test Item Value Reference Range Comments LACTATE BLOOD ARTERIAL (2) (BEAKER) (test 0.7 mmol/L 0.5-2.2 givg=1761) Effective 08/06/2015: Units/Reference Range ChangeNew: 0.5-2.2 mmol/L Previous: 5 -20 mg/dLCBC W/PLT COUNT & AUTO [id number] 13:24:00 Test Item Value Reference Range Comments WHITE BLOOD CELL COUNT (BEAKER) (test vipv=066) 10.5 K/ L 3.5-10.5 RED BLOOD CELL COUNT (BEAKER) (test wfml=316) 2.70 M/ L 3.93-5.22 HEMOGLOBIN (BEAKER) (test ejco=997) 8.1 GM/DL 11.2-15.7 HEMATOCRIT (BEAKER) (test hijc=933) 27.0 % 34.1-44.9 MEAN CORPUSCULAR VOLUME (BEAKER) (test filc=024) 100.0 fL 79.4-94.8 MEAN CORPUSCULAR HEMOGLOBIN (BEAKER) (test 30.0 pg 25.6-32.2 rvqu=062) MEAN CORPUSCULAR HEMOGLOBIN CONC (BEAKER) (test 30.0 GM/DL 32.2-35.5 dufw=241) RED CELL DISTRIBUTION WIDTH (BEAKER) (test 14.9 % 11.7-14.4 flvf=762) PLATELET COUNT (BEAKER) (test midq=112) 117 K/CU MM 150-450 MEAN PLATELET VOLUME (BEAKER) (test xglt=423) 10.9 fL 9.4-12.3 NUCLEATED RED BLOOD CELLS (BEAKER) (test 0 /100 WBC 0-0 rzhk=473) NEUTROPHILS RELATIVE PERCENT (BEAKER) (test 78 % qizm=777) LYMPHOCYTES RELATIVE PERCENT (BEAKER) (test 10 % fwec=992) MONOCYTES RELATIVE PERCENT (BEAKER) (test 10 % edgs=462) EOSINOPHILS RELATIVE PERCENT (BEAKER) (test 1 % nael=791) BASOPHILS RELATIVE PERCENT (BEAKER) (test 0 % ljwh=203) NEUTROPHILS ABSOLUTE COUNT (BEAKER) (test 8.20 K/ L 1.56-6.13 rlbk=345) LYMPHOCYTES ABSOLUTE COUNT (BEAKER) (test 1.00 K/ L 1.18-3.74 lxmd=149) MONOCYTES ABSOLUTE COUNT (BEAKER) (test 1.06 K/ L 0.24-0.36 ntfi=170) EOSINOPHILS ABSOLUTE COUNT (BEAKER) (test 0.09 K/ L 0.04-0.36 vaiv=676) BASOPHILS ABSOLUTE COUNT (BEAKER) (test 0.04 K/ L 0.01-0.08 qmln=014) IMMATURE GRANULOCYTES-RELATIVE PERCENT (BEAKER) 1 % 0-1 (test imgs=0335) OXYGEN SATURATION, [id number] 13:08:00 Test Item Value Reference Range Comments O2 SATURATION (MEASURED) (BEAKER) (test zcub=5784) 65.1 % PA catheter tipBLOOD GAS, [id number] 13:08:00 Test Item Value Reference Range Comments PH ARTERIAL (BEAKER) (test zhvo=758) 7.42 7.35-7.45 PCO2 ARTERIAL (BEAKER) (test yyta=103) 42 mmHg 35-45 PO2 ARTERIAL (BEAKER) (test tack=412) 239 mmHg 80-90 O2 SATURATION ARTERIAL (BEAKER) (test nwry=822) 99.6 % 96.0-97.0 HCO3 ARTERIAL (BEAKER) (test lwlw=675) 27 mmol/L 21-29 BASE EXCESS ARTERIAL (BEAKER) (test qvlt=357) 2.1 mmol/L -2.0-3.0 PATIENT TEMPERATURE (BEAKER) (test aswc=5010) 36.6 C FIO2 (BEAKER) (test ktod=2924) 100.0 % GLUCOSE-STAT [id number] 13:08:00 Test Item Value Reference Range Comments GLUCOSE RANDOM (BEAKER) (test glqx=524) 194 mg/dL 70-110 HGB/HCT (H&H) - STAT [id number] 13:08:00 Test Item Value Reference Range Comments HEMOGLOBIN (BEAKER) (test vcxb=424) 8.8 g/dL 12.0-15.0 HEMATOCRIT (BEAKER) (test tnrg=391) 26.0 % 36.0-45.0 CALCIUM, [id number] 13:08:00 Test Item Value Reference Range Comments CALCIUM IONIZED (BEAKER) (test lpqs=853) 1.08 mmol/L 1.12-1.27 PH, BLOOD (BEAKER) (test xnve=9938) 7.41 SODIUM NA-STAT [id number] 13:07:00 Test Item Value Reference Range Comments SODIUM (BEAKER) (test vmun=660) 140 meq/L 135-148 POTASSIUM-STAT [id number] 13:07:00 Test Item Value Reference Range Comments POTASSIUM (BEAKER) (test eqez=160) 3.7 meq/L 3.6-5.5 SODIUM NA-STAT [id number] 11:39:00 Test Item Value Reference Range Comments SODIUM (BEAKER) (test eams=807) 141 meq/L 135-148 POTASSIUM-STAT [id number] 11:39:00 Test Item Value Reference Range Comments POTASSIUM (BEAKER) (test qeig=314) 3.6 meq/L 3.6-5.5 BLOOD GAS, [id number] 11:39:00 Test Item Value Reference Range Comments PH ARTERIAL (BEAKER) (test lvjb=940) 7.44 7.35-7.45 PCO2 ARTERIAL (BEAKER) (test lzqi=184) 42 mmHg 35-45 PO2 ARTERIAL (BEAKER) (test vmkb=063) 234 mmHg 80-90 O2 SATURATION ARTERIAL (BEAKER) (test ejmz=386) 99.6 % 96.0-97.0 HCO3 ARTERIAL (BEAKER) (test wbkk=076) 28 mmol/L 21-29 BASE EXCESS ARTERIAL (BEAKER) (test gszh=962) 3.4 mmol/L -2.0-3.0 PATIENT TEMPERATURE (BEAKER) (test mqmn=0125) 36.8 C FIO2 (BEAKER) (test trag=9660) 86.0 % GLUCOSE-STAT [id number] 11:39:00 Test Item Value Reference Range Comments GLUCOSE RANDOM (BEAKER) (test oxfh=176) 194 mg/dL 70-110 HGB/HCT (H&H) - STAT [id number] 11:39:00 Test Item Value Reference Range Comments HEMOGLOBIN (BEAKER) (test jbgk=455) 8.8 g/dL 12.0-15.0 HEMATOCRIT (BEAKER) (test kfbp=186) 26.0 % 36.0-45.0 CALCIUM, [id number] 11:39:00 Test Item Value Reference Range Comments CALCIUM IONIZED (BEAKER) (test zrye=736) 1.06 mmol/L 1.12-1.27 PH, BLOOD (BEAKER) (test cwzc=9663) 7.44 BLOOD GAS, [id number] 10:56:00 Test Item Value Reference Range Comments PH ARTERIAL (BEAKER) (test hwyd=567) 7.43 7.35-7.45 PCO2 ARTERIAL (BEAKER) (test gaxk=232) 46 mmHg 35-45 PO2 ARTERIAL (BEAKER) (test ooen=459) 223 mmHg 80-90 O2 SATURATION ARTERIAL (BEAKER) (test wpiz=858) 99.5 % 96.0-97.0 HCO3 ARTERIAL (BEAKER) (test npzp=149) 30 mmol/L 21-29 BASE EXCESS ARTERIAL (BEAKER) (test nssv=851) 4.6 mmol/L -2.0-3.0 PATIENT TEMPERATURE (BEAKER) (test fgbx=6620) 37.0 C FIO2 (BEAKER) (test aqqb=9437) 100.0 % GLUCOSE-STAT [id number] 10:56:00 Test Item Value Reference Range Comments GLUCOSE RANDOM (BEAKER) (test qayw=211) 190 mg/dL 70-110 HGB/HCT (H&H) - STAT [id number] 10:56:00 Test Item Value Reference Range Comments HEMOGLOBIN (BEAKER) (test zonx=179) 8.7 g/dL 12.0-15.0 HEMATOCRIT (BEAKER) (test mmae=270) 26.0 % 36.0-45.0 SODIUM NA-STAT [id number] 10:55:00 Test Item Value Reference Range Comments SODIUM (BEAKER) (test pqsg=739) 142 meq/L 135-148 POTASSIUM-STAT [id number] 10:55:00 Test Item Value Reference Range Comments POTASSIUM (BEAKER) (test mkjo=751) 3.5 meq/L 3.6-5.5 [id number] 08:41:00 Test Item Value Reference Range Comments MAGNESIUM (BEAKER) (test xljj=634) 2.0 mg/dL 1.6-2.6 BLOOD GAS, [id number] 07:57:00 Test Item Value Reference Range Comments PH ARTERIAL (BEAKER) (test tcvn=778) 7.48 7.35-7.45 PCO2 ARTERIAL (BEAKER) (test eivt=925) 37 mmHg 35-45 PO2 ARTERIAL (BEAKER) (test ucwf=392) 71 mmHg 80-90 O2 SATURATION ARTERIAL (BEAKER) (test agfi=291) 94.8 % 96.0-97.0 HCO3 ARTERIAL (BEAKER) (test rwkj=915) 27 mmol/L 21-29 BASE EXCESS ARTERIAL (BEAKER) (test ypir=307) 3.5 mmol/L -2.0-3.0 PATIENT TEMPERATURE (BEAKER) (test babs=4254) 37.8 C FIO2 (BEAKER) (test hobl=6765) 32.0 % POCT-GLUCOSE [id number] 07:50:00 Test Item Value Reference Range Comments POC-GLUCOSE METER (BEAKER) 246 mg/dL 70-110 TESTED AT [facility] [address] [place] [address] (test fuct=1801) [facility] [address] RAD, CHEST, 1 VIEW, NON [id number] 04:54:00Reason for exam:-> impellaShould this be performed at the bedside?->YesFINAL REPORT CLINICAL INDICATION: Support lines. Comparison: 07/23/2017 The cardiomediastinal contours are stable. Central pulmonary vascular prominence and bilateral parenchymalopacities are similar to previous. There is no pneumothorax. Support lines are stable. Signed: Adelso Sorensen Verified Date/Time: 07/24/2017 04:54:08 Reading Location: [address] Reading Room POCT-GLUCOSE [id number] 04:08:00 Test Item Value Reference Range Comments POC-GLUCOSE METER (BEAKER) 137 mg/dL 70-110 TESTED AT [facility] [address] (test bnqg=7527) [place] [address] [id number] 03:02:00 Test Item Value Reference Range Comments PHOSPHORUS (BEAKER) (test wghf=938) 3.7 mg/dL 2.3-4.7 [id number] 03:02:00 Test Item Value Reference Range Comments MAGNESIUM (BEAKER) (test rjbr=111) 2.3 mg/dL 1.6-2.6 BASIC METABOLIC [id number] 03:02:00 Test Item Value Reference Range Comments SODIUM (BEAKER) (test 145 meq/L 136-145 ugfb=056) POTASSIUM (BEAKER) (test 4.0 meq/L 3.5-5.1 zerj=409) CHLORIDE (BEAKER) (test 106 meq/L 98-107 fhei=717) CO2 (BEAKER) (test 26 meq/L 22-29 aliv=682) BLOOD UREA NITROGEN 26 mg/dL 7-21 (BEAKER) (test gxze=531) CREATININE (BEAKER) (test 1.47 mg/dL 0.57-1.25 rgao=998) GLUCOSE RANDOM (BEAKER) 141 mg/dL 70-105 (test moru=121) CALCIUM (BEAKER) (test 9.0 mg/dL 8.4-10.2 zebs=115) EGFR (BEAKER) (test 43 mL/min/1.73 sq m ESTIMATED GFR IS NOT wigi=7371) ACCURATE CREATININE CLEARANCE IN PREDICTING GLOMERULAR FILTRATION RATE. ESTIMATED GFR IS NOT APPLICABLE FOR DIALYSIS PATIENTS. HEPATIC FUNCTION [id number] 03:02:00 Test Item Value Reference Range Comments TOTAL PROTEIN (BEAKER) (test ssgz=219) 6.6 gm/dL 6.0-8.3 ALBUMIN (BEAKER) (test pzxv=9884) 3.2 g/dL 3.5-5.0 BILIRUBIN TOTAL (BEAKER) (test bbxe=126) 1.2 mg/dL 0.2-1.2 BILIRUBIN DIRECT (BEAKER) (test tnjy=281) 0.6 mg/dL 0.1-0.5 ALKALINE PHOSPHATASE (BEAKER) (test izju=924) 55 U/L 40-150 AST (SGOT) (BEAKER) (test cjvn=888) 33 U/L 5-34 ALT (SGPT) (BEAKER) (test ycmy=725) 25 U/L 6-55 LACTATE DEHYDROGENASE (LDH)2017-07-24 03:02:00 Test Item Value Reference Range Comments LACTATE DEHYDROGENASE (BEAKER) (test oakj=159) 879 U/L 125-220 CBC W/PLT COUNT & AUTO [id number] 02:53:00 Test Item Value Reference Range Comments WHITE BLOOD CELL COUNT (BEAKER) (test ttuy=480) 12.6 K/ L 3.5-10.5 RED BLOOD CELL COUNT (BEAKER) (test yajs=879) 2.93 M/ L 3.93-5.22 HEMOGLOBIN (BEAKER) (test diuy=329) 8.7 GM/DL 11.2-15.7 HEMATOCRIT (BEAKER) (test rpoz=098) 28.3 % 34.1-44.9 MEAN CORPUSCULAR VOLUME (BEAKER) (test mlga=527) 96.6 fL 79.4-94.8 MEAN CORPUSCULAR HEMOGLOBIN (BEAKER) (test 29.7 pg 25.6-32.2 xfmx=491) MEAN CORPUSCULAR HEMOGLOBIN CONC (BEAKER) (test 30.7 GM/DL 32.2-35.5 isss=976) RED CELL DISTRIBUTION WIDTH (BEAKER) (test 14.7 % 11.7-14.4 tzgg=314) PLATELET COUNT (BEAKER) (test wamu=280) 126 K/CU MM 150-450 MEAN PLATELET VOLUME (BEAKER) (test zixl=991) 11.0 fL 9.4-12.3 NUCLEATED RED BLOOD CELLS (BEAKER) (test 0 /100 WBC 0-0 bekm=436) NEUTROPHILS RELATIVE PERCENT (BEAKER) (test 78 % jbkg=787) LYMPHOCYTES RELATIVE PERCENT (BEAKER) (test 10 % llav=388) MONOCYTES RELATIVE PERCENT (BEAKER) (test 10 % kewi=421) EOSINOPHILS RELATIVE PERCENT (BEAKER) (test 1 % uxlc=147) BASOPHILS RELATIVE PERCENT (BEAKER) (test 0 % hmoh=778) NEUTROPHILS ABSOLUTE COUNT (BEAKER) (test 9.85 K/ L 1.56-6.13 xxdw=024) LYMPHOCYTES ABSOLUTE COUNT (BEAKER) (test 1.27 K/ L 1.18-3.74 eqat=849) MONOCYTES ABSOLUTE COUNT (BEAKER) (test 1.25 K/ L 0.24-0.36 ywut=703) EOSINOPHILS ABSOLUTE COUNT (BEAKER) (test 0.10 K/ L 0.04-0.36 qlrl=091) BASOPHILS ABSOLUTE COUNT (BEAKER) (test 0.05 K/ L 0.01-0.08 hiwo=087) IMMATURE GRANULOCYTES-RELATIVE PERCENT (BEAKER) 1 % 0-1 (test rswz=9140) [id number] 02:50:00 Test Item Value Reference Range Comments PROTIME (BEAKER) (test qxas=091) 16.7 seconds 11.7-14.7 INR (BEAKER) (test ruli=325) 1.4 <=5.9 PARTIAL THROMBOPLASTIN TIME (BEAKER) (test 78.5 seconds 22.5-36.0 hzdg=563) RECOMMENDED COUMADIN/WARFARIN INR THERAPY RANGESSTANDARD DOSE: 2.0 - 3.0 Includes: PROPHYLAXIS forvenous thrombosis, systemic embolization; TREATMENT for venous thrombosis and/or pulmonary embolus.HIGH RISK: Target INR is 2.5-3.5 for patients with mechanical heart valves.BLOOD [id number] 00:00:00 Test Item Value Reference Range Comments CULTURE (BEAKER) (test sbej=8321) No growth in 5 days BLOOD [id number] 00:00:00 Test Item Value Reference Range Comments CULTURE (BEAKER) (test mogj=3358) No growth in 5 days [id number] 22:01:00 Test Item Value Reference Range Comments MAGNESIUM (BEAKER) (test edmw=063) 2.0 mg/dL 1.6-2.6 POCT-GLUCOSE [id number] 19:39:00 Test Item Value Reference Range Comments POC-GLUCOSE METER (BEAKER) 135 mg/dL 70-110 TESTED AT [facility] [address] (test ayyx=5256) [facility] [address] BASIC METABOLIC [id number] 19:08:00 Test Item Value Reference Range Comments SODIUM (BEAKER) (test 145 meq/L 136-145 vqrx=359) POTASSIUM (BEAKER) (test 3.9 meq/L 3.5-5.1 ytye=724) CHLORIDE (BEAKER) (test 106 meq/L 98-107 zzib=632) CO2 (BEAKER) (test 28 meq/L 22-29 mpnm=688) BLOOD UREA NITROGEN 26 mg/dL 7-21 (BEAKER) (test rlec=573) CREATININE (BEAKER) (test 1.45 mg/dL 0.57-1.25 etph=043) GLUCOSE RANDOM (BEAKER) 119 mg/dL 70-105 (test czsk=163) CALCIUM (BEAKER) (test 9.2 mg/dL 8.4-10.2 jmmj=503) EGFR (BEAKER) (test 43 mL/min/1.73 sq m ESTIMATED GFR IS NOT vold=2001) ACCURATE CREATININE CLEARANCE IN PREDICTING GLOMERULAR FILTRATION RATE. ESTIMATED GFR IS NOT APPLICABLE FOR DIALYSIS PATIENTS. [id number] 19:06:00 Test Item Value Reference Range Comments PHOSPHORUS (BEAKER) (test odmd=846) 3.7 mg/dL 2.3-4.7 VANCOMYCIN LEVEL, [id number] 16:33:00 Test Item Value Reference Range Comments VANCOMYCIN TROUGH (BEAKER) (test rrxb=581) 17.8 ug/mL 10.0-20.0 If vancomycin trough level > 20 mcg/mL, hold next vancomycin dose, and contact MD and pharmacist.VARICELLA ZOSTER ANTIBODY, [id number] 14:47:00 Test Item Value Reference Range Comments VARICELLA ZOSTER IGG (AL) (BEAKER) (test nmga=7260) 2.3 Al VARICELLA ZOSTER RESULT INTERPRETATIONS: <=0.8 Al Nonreactive: Presumed non-immune to VZV 0.9-1.0 Al Equivocal >=1.1 Al Reactive: Presumed immune to VZVCYTOMEGALOVIRUS ANTIBODY, [id number] 14:46:00 Test Item Value Reference Range Comments CYTOMEGALOVIRUS IGG ANTIBODY (BEAKER) (test Negative xoge=800) CYTOMEGALOVIRUS ANTIBODY, [id number] 14:46:00 Test Item Value Reference Range Comments CYTOMEGALOVIRUS IGM ANTIBODY (BEAKER) (test Negative lcey=649) EBV-VCA ANTIBODY, [id number] 14:46:00 Test Item Value Reference Range Comments MARIO-CARMEN VCA IGG (BEAKER) (test wohk=278) Positive EBV-VCA ANTIBODY, [id number] 14:46:00 Test Item Value Reference Range Comments MARIO-CARMEN VCA IGM (BEAKER) (test yavt=447) Negative HERPES VIRUS ANTIBODY, [id number] 14:45:00 Test Item Value Reference Range Comments HERPES VIRUS IGG (BEAKER) (test iwei=4082) Negative HSV IgG 1=NEGATIVEHSV IgG 2=NEGATIVETOXOPLASMA GONDII ANTIBODY, [id number] 14 :45:00 Test Item Value Reference Range Comments TOXOPLASMA GONDII IGG (BEAKER) (test shkm=444) Negative [id number] 14:37:00 Test Item Value Reference Range Comments PARTIAL THROMBOPLASTIN TIME (BEAKER) (test 69.5 seconds 22.5-36.0 lnzc=738) OCCULT BLOOD, [id number] 14:34:00 Test Item Value Reference Range Comments FECAL OCCULT BLOOD (BEAKER) (test ybch=702) Negative Negative POCT-GLUCOSE [id number] 14:20:00 Test Item Value Reference Range Comments POC-GLUCOSE METER (BEAKER) 166 mg/dL 70-110 TESTED AT [address] (test ynmh=7696) [facility] [address] POCT-GLUCOSE [id number] 14:20:00 Test Item Value Reference Range Comments POC-GLUCOSE METER (BEAKER) 82 mg/dL 70-110 TESTED AT [address] (test prpo=5888) [place] [id number] 13:00:00 Test Item Value Reference Range Comments PHOSPHORUS (BEAKER) (test mzao=706) 3.2 mg/dL 2.3-4.7 BASIC METABOLIC [id number] 13:00:00 Test Item Value Reference Range Comments SODIUM (BEAKER) (test 143 meq/L 136-145 igxf=589) POTASSIUM (BEAKER) (test 3.8 meq/L 3.5-5.1 rxzg=734) CHLORIDE (BEAKER) (test 104 meq/L 98-107 jmlj=707) CO2 (BEAKER) (test 29 meq/L 22-29 hewq=810) BLOOD UREA NITROGEN 28 mg/dL 7-21 (BEAKER) (test kxye=116) CREATININE (BEAKER) (test 1.44 mg/dL 0.57-1.25 klht=980) GLUCOSE RANDOM (BEAKER) 171 mg/dL 70-105 (test mqgh=835) CALCIUM (BEAKER) (test 9.1 mg/dL 8.4-10.2 jwjt=239) EGFR (BEAKER) (test 44 mL/min/1.73 sq m ESTIMATED GFR IS NOT bnwx=4675) ACCURATE CREATININE CLEARANCE IN PREDICTING GLOMERULAR FILTRATION RATE. ESTIMATED GFR IS NOT APPLICABLE FOR DIALYSIS PATIENTS. POCT-GLUCOSE [id number] 12:29:00 Test Item Value Reference Range Comments POC-GLUCOSE METER (BEAKER) 179 mg/dL 70-110 TESTED AT [address] (test lcgd=6239) [place] [address] CREATININE [id number] 11:15:00 Test Item Value Reference Range Comments CREATININE CLEARANCE (BEAKER) 45.8 mL/min 70.0-140.0 (test mwmq=223) VOLUME, TOTAL (BEAKER) (test 3400 ml pxzd=2797) CREATININE URINE (BEAKER) (test 36.8 mg/dL lpdz=553) QCSA-BGCBYFLORRQ-400 (BEAKER) Анна Encarnacion MD (test prxh=1613) (electronic signature) PATIENT HEIGHT (CM) (BEAKER) 165.1 cm (test ribc=5440) PATIENT WEIGHT (KG) (BEAKER) 84.100 kg (test fvsu=6618) [id number] 09:15:00 Test Item Value Reference Range Comments POTASSIUM (BEAKER) (test ijca=553) 4.1 meq/L 3.5-5.1 PRN - repeat potassium levels every 1 hour until glucose level is less than 450 mg/[id number] 09:15:00 Test Item Value Reference Range Comments MAGNESIUM (BEAKER) (test hmwo=350) 2.4 mg/dL 1.6-2.6 PRN - repeat potassium levels every 1 hour until glucose level is less than 450 mg/dLPOCT-GLUCOSE [id number] 08:47:00 Test Item Value Reference Range Comments POC-GLUCOSE METER (BEAKER) 155 mg/dL 70-110 TESTED AT [address] (test yfab=4950) [place] [address] POCT-GLUCOSE [id number] 06:12:00 Test Item Value Reference Range Comments POC-GLUCOSE METER (BEAKER) 143 mg/dL 70-110 TESTED AT [facility] [address] (test nght=4696) [facility] [address] POCT-GLUCOSE [id number] 06:12:00 Test Item Value Reference Range Comments POC-GLUCOSE METER (BEAKER) 123 mg/dL 70-110 TESTED AT [place] [id number] [facility] (test ydiv=5615) [facility] [address] RAD, CHEST, 1 VIEW, NON [id number] 05:36:00Reason for exam:->respiratory insufficiencyFINAL REPORT Chest one view. Clinical history: respiratory insufficiency Comparison: Chest radiograph 07/22/2017 Technique: A single frontal view of the chest was obtained. Findings: Cardiomediastinal contours are unchanged. There is a right IJ [place]-Jagdeep catheter, with tip inthe right pulmonary artery. [...] Ramirezeport Verified Date/Time: 07/23/2017 05:36:35 Reading Location: [address] Reading Room CALCIUM, [id number] 05:19:00 Test Item Value Reference Range Comments CALCIUM IONIZED (BEAKER) (test auhg=290) 1.12 mmol/L 1.12-1.27 PH, BLOOD (BEAKER) (test zace=4843) 7.40 OXYGEN SATURATION, [id number] 05:18:00 Test Item Value Reference Range Comments O2 SATURATION (MEASURED) (BEAKER) (test lvsm=9501) 63.1 % POCT-GLUCOSE [id number] 05:05:00 Test Item Value Reference Range Comments POC-GLUCOSE METER (BEAKER) 131 mg/dL 70-110 TESTED AT [facility] [address] (test iawn=4756) [place] [address] BLOOD GAS, [id number] 04:58:00 Test Item Value Reference Range Comments PH ARTERIAL (BEAKER) (test ibyf=455) 7.41 7.35-7.45 PCO2 ARTERIAL (BEAKER) (test ebva=161) 51 mmHg 35-45 PO2 ARTERIAL (BEAKER) (test ptgr=033) 93 mmHg 80-90 O2 SATURATION ARTERIAL (BEAKER) (test rzmq=504) 96.9 % 96.0-97.0 HCO3 ARTERIAL (BEAKER) (test ykyv=634) 31 mmol/L 21-29 BASE EXCESS ARTERIAL (BEAKER) (test ivjx=202) 5.9 mmol/L -2.0-3.0 PATIENT TEMPERATURE (BEAKER) (test xwmp=7499) 37.4 C FIO2 (BEAKER) (test burc=6692) 70.0 % [id number] 03:35:00 Test Item Value Reference Range Comments PARTIAL THROMBOPLASTIN TIME (BEAKER) (test 70.8 seconds 22.5-36.0 nqop=424) [id number] 03:34:00 Test Item Value Reference Range Comments PHOSPHORUS (BEAKER) (test tcuo=848) 3.0 mg/dL 2.3-4.7 [id number] 03:34:00 Test Item Value Reference Range Comments MAGNESIUM (BEAKER) (test bnac=052) 2.1 mg/dL 1.6-2.6 BASIC METABOLIC [id number] 03:34:00 Test Item Value Reference Range Comments SODIUM (BEAKER) (test 144 meq/L 136-145 dsqi=475) POTASSIUM (BEAKER) (test 3.9 meq/L 3.5-5.1 rsam=819) CHLORIDE (BEAKER) (test 105 meq/L 98-107 tlhh=940) CO2 (BEAKER) (test 29 meq/L 22-29 fmcj=392) BLOOD UREA NITROGEN 29 mg/dL 7-21 (BEAKER) (test lbby=678) CREATININE (BEAKER) (test 1.54 mg/dL 0.57-1.25 lcwn=911) GLUCOSE RANDOM (BEAKER) 119 mg/dL 70-105 (test wemt=390) CALCIUM (BEAKER) (test 9.1 mg/dL 8.4-10.2 ewfd=926) EGFR (BEAKER) (test 40 mL/min/1.73 sq m ESTIMATED GFR IS NOT ivdy=1637) ACCURATE CREATININE CLEARANCE IN PREDICTING GLOMERULAR FILTRATION RATE. ESTIMATED GFR IS NOT APPLICABLE FOR DIALYSIS PATIENTS. HEPATIC FUNCTION [id number] 03:34:00 Test Item Value Reference Range Comments TOTAL PROTEIN (BEAKER) (test sshm=769) 6.7 gm/dL 6.0-8.3 ALBUMIN (BEAKER) (test rbxv=3825) 3.3 g/dL 3.5-5.0 BILIRUBIN TOTAL (BEAKER) (test jeke=174) 1.2 mg/dL 0.2-1.2 BILIRUBIN DIRECT (BEAKER) (test ufyt=799) 0.6 mg/dL 0.1-0.5 ALKALINE PHOSPHATASE (BEAKER) (test cfds=665) 51 U/L 40-150 AST (SGOT) (BEAKER) (test wtbl=829) 48 U/L 5-34 ALT (SGPT) (BEAKER) (test qtqq=390) 29 U/L 6-55 LACTATE DEHYDROGENASE (LDH)2017-07-23 03:34:00 Test Item Value Reference Range Comments LACTATE DEHYDROGENASE (BEAKER) (test gjfh=262) 1020 U/L 125-220 CBC W/PLT COUNT & AUTO [id number] 03:25:00 Test Item Value Reference Range Comments WHITE BLOOD CELL COUNT (BEAKER) (test cvfh=959) 11.7 K/ L 3.5-10.5 RED BLOOD CELL COUNT (BEAKER) (test okcb=772) 3.01 M/ L 3.93-5.22 HEMOGLOBIN (BEAKER) (test gsjs=236) 9.0 GM/DL 11.2-15.7 HEMATOCRIT (BEAKER) (test uxhv=084) 28.9 % 34.1-44.9 MEAN CORPUSCULAR VOLUME (BEAKER) (test bqln=229) 96.0 fL 79.4-94.8 MEAN CORPUSCULAR HEMOGLOBIN (BEAKER) (test 29.9 pg 25.6-32.2 vkfp=617) MEAN CORPUSCULAR HEMOGLOBIN CONC (BEAKER) (test 31.1 GM/DL 32.2-35.5 grhr=441) RED CELL DISTRIBUTION WIDTH (BEAKER) (test 15.0 % 11.7-14.4 cdph=377) PLATELET COUNT (BEAKER) (test ofqf=168) 128 K/CU MM 150-450 MEAN PLATELET VOLUME (BEAKER) (test vrhp=288) 11.3 fL 9.4-12.3 NUCLEATED RED BLOOD CELLS (BEAKER) (test 0 /100 WBC 0-0 vtjb=226) NEUTROPHILS RELATIVE PERCENT (BEAKER) (test 78 % djyb=378) LYMPHOCYTES RELATIVE PERCENT (BEAKER) (test 11 % hohv=178) MONOCYTES RELATIVE PERCENT (BEAKER) (test 10 % tjxf=292) EOSINOPHILS RELATIVE PERCENT (BEAKER) (test 1 % iagj=113) BASOPHILS RELATIVE PERCENT (BEAKER) (test 0 % qlyq=312) NEUTROPHILS ABSOLUTE COUNT (BEAKER) (test 9.07 K/ L 1.56-6.13 txuz=364) LYMPHOCYTES ABSOLUTE COUNT (BEAKER) (test 1.25 K/ L 1.18-3.74 ihdb=768) MONOCYTES ABSOLUTE COUNT (BEAKER) (test 1.12 K/ L 0.24-0.36 toeb=571) EOSINOPHILS ABSOLUTE COUNT (BEAKER) (test 0.12 K/ L 0.04-0.36 tjfh=003) BASOPHILS ABSOLUTE COUNT (BEAKER) (test 0.05 K/ L 0.01-0.08 xjoz=231) IMMATURE GRANULOCYTES-RELATIVE PERCENT (BEAKER) 1 % 0-1 (test cxtk=7622) POCT-GLUCOSE [id number] 03:09:00 Test Item Value Reference Range Comments POC-GLUCOSE METER (BEAKER) 114 mg/dL 70-110 TESTED AT [address] (test tqwq=4852) [place] [id number] POCT-GLUCOSE [id number] 03:09:00 Test Item Value Reference Range Comments POC-GLUCOSE METER (BEAKER) 122 mg/dL 70-110 TESTED AT [address] (test krhu=3255) [place] [id number] BASIC METABOLIC [id number] 00:32:00 Test Item Value Reference Range Comments SODIUM (BEAKER) (test 144 meq/L 136-145 bexq=074) POTASSIUM (BEAKER) (test 4.2 meq/L 3.5-5.1 temn=914) CHLORIDE (BEAKER) (test 105 meq/L 98-107 fsos=743) CO2 (BEAKER) (test 28 meq/L 22-29 olih=955) BLOOD UREA NITROGEN 30 mg/dL 7-21 (BEAKER) (test upme=977) CREATININE (BEAKER) (test 1.56 mg/dL 0.57-1.25 foot=185) GLUCOSE RANDOM (BEAKER) 131 mg/dL 70-105 (test flst=165) CALCIUM (BEAKER) (test 9.0 mg/dL 8.4-10.2 zztr=754) EGFR (BEAKER) (test 40 mL/min/1.73 sq m ESTIMATED GFR IS NOT zqso=8940) ACCURATE CREATININE CLEARANCE IN PREDICTING GLOMERULAR FILTRATION RATE. ESTIMATED GFR IS NOT APPLICABLE FOR DIALYSIS PATIENTS. [id number] 00:31:00 Test Item Value Reference Range Comments PHOSPHORUS (BEAKER) (test icgb=343) 3.4 mg/dL 2.3-4.7 POCT-GLUCOSE [id number] 00:10:00 Test Item Value Reference Range Comments POC-GLUCOSE METER (BEAKER) 140 mg/dL 70-110 TESTED AT [address] (test kdpl=3589) [facility] [address] POCT-GLUCOSE [id number] 00:08:00 Test Item Value Reference Range Comments POC-GLUCOSE METER (BEAKER) 121 mg/dL 70-110 TESTED AT [address] (test lwzr=9265) [facility] [address] POCT-GLUCOSE [id number] 00:08:00 Test Item Value Reference Range Comments POC-GLUCOSE METER (BEAKER) 112 mg/dL 70-110 TESTED AT [address] (test zdcs=9524) [facility] [address] POCT-GLUCOSE [id number] 00:08:00 Test Item Value Reference Range Comments POC-GLUCOSE METER (BEAKER) 84 mg/dL 70-110 TESTED AT [address] (test mchl=0338) [facility] [address] BASIC METABOLIC [id number] 20:36:00 Test Item Value Reference Range Comments SODIUM (BEAKER) (test 145 meq/L 136-145 eykg=823) POTASSIUM (BEAKER) (test 3.6 meq/L 3.5-5.1 gepr=330) CHLORIDE (BEAKER) (test 106 meq/L 98-107 iucn=902) CO2 (BEAKER) (test 31 meq/L 22-29 nnlq=710) BLOOD UREA NITROGEN 32 mg/dL 7-21 (BEAKER) (test mdcc=394) CREATININE (BEAKER) (test 1.56 mg/dL 0.57-1.25 oovg=830) GLUCOSE RANDOM (BEAKER) 85 mg/dL 70-105 (test etcg=243) CALCIUM (BEAKER) (test 9.0 mg/dL 8.4-10.2 kevn=581) EGFR (BEAKER) (test 40 mL/min/1.73 sq m ESTIMATED GFR IS NOT yqlr=3100) ACCURATE CREATININE CLEARANCE IN PREDICTING GLOMERULAR FILTRATION RATE. ESTIMATED GFR IS NOT APPLICABLE FOR DIALYSIS PATIENTS. [id number] 20:36:00 Test Item Value Reference Range Comments MAGNESIUM (BEAKER) (test nwqu=164) 2.4 mg/dL 1.6-2.6 [id number] 18:26:00 Test Item Value Reference Range Comments PHOSPHORUS (BEAKER) (test eido=237) 2.4 mg/dL 2.3-4.7 BASIC METABOLIC [id number] 18:26:00 Test Item Value Reference Range Comments SODIUM (BEAKER) (test 144 meq/L 136-145 isvu=506) POTASSIUM (BEAKER) (test 3.9 meq/L 3.5-5.1 srfk=525) CHLORIDE (BEAKER) (test 106 meq/L 98-107 dwel=290) CO2 (BEAKER) (test 30 meq/L 22-29 stmg=413) BLOOD UREA NITROGEN 32 mg/dL 7-21 (BEAKER) (test gjbf=866) CREATININE (BEAKER) (test 1.67 mg/dL 0.57-1.25 umvn=239) GLUCOSE RANDOM (BEAKER) 141 mg/dL 70-105 (test swzt=149) CALCIUM (BEAKER) (test 9.1 mg/dL 8.4-10.2 wkub=120) EGFR (BEAKER) (test 37 mL/min/1.73 sq m ESTIMATED GFR IS NOT eyos=7690) ACCURATE CREATININE CLEARANCE IN PREDICTING GLOMERULAR FILTRATION RATE. ESTIMATED GFR IS NOT APPLICABLE FOR DIALYSIS PATIENTS. LACTIC ACID, ARTERIAL, WHOLE [id number] 18:22:00 Test Item Value Reference Range Comments LACTATE BLOOD ARTERIAL (2) (BEAKER) (test 1.0 mmol/L 0.5-2.2 djfx=2791) Effective 08/06/2015: Units/Reference Range ChangeNew: 0.5-2.2 mmol/L Previous: 5 -20 mg/dLPOCT-GLUCOSE [id number] 17:56:00 Test Item Value Reference Range Comments POC-GLUCOSE METER (BEAKER) 138 mg/dL 70-110 TESTED AT [address] (test vjrx=4143) [place] [address] [id number] 16:19:00 Test Item Value Reference Range Comments POTASSIUM (BEAKER) (test wmxn=011) 3.8 meq/L 3.5-5.1 PRN - repeat potassium levels every 1 hour until glucose level is less than 450 mg/[id number] 16:06:00 Test Item Value Reference Range Comments PARTIAL THROMBOPLASTIN TIME (BEAKER) (test 71.3 seconds 22.5-36.0 zazr=239) OXYGEN SATURATION, [id number] 15:58:00 Test Item Value Reference Range Comments O2 SATURATION (MEASURED) (BEAKER) (test weco=6618) 58.6 % calibrationPOCT-GLUCOSE [id number] 15:51:00 Test Item Value Reference Range Comments POC-GLUCOSE METER (BEAKER) 147 mg/dL 70-110 TESTED AT [address] (test eivk=0522) [place] [address] RAD, CHEST, 1 VIEW, NON [id number] 14:57:00Reason for exam:->s/p CVC placement Should this be performed at the bedside?->YesFINAL REPORT TECHNIQUE: Frontal chest radiograph dated 07/22/2017. CLINICAL HISTORY: CVC placement COMPARISON STUDY: Chest radiograph performed earlier the same day. IMPRESSION:There has been interval placement of a right-sided [place]- Jagdeep catheter with the tip in the main pulmonary artery. Impella device is unchanged in appearance. There is left lung base atelectasis. No pleural effusion or pneumothorax. Cardiomediastinal silhouette is normal in size. No pulmonary edema. Bonesare osteopenic. No fracture. Signed: Dawson [place] Verified Date/Time: 07/22/2017 14:57:48 Reading Location: [facility] Radiology Reading Room PROTEIN ELECTROPHORESIS, [id number] 14:45:00 Test Item Value Reference Range Comments ALBUMIN FRACTION (BEAKER) 3.0 g/dL 3.5-5.5 (test jpqk=345) ALPHA 1 FRACTION (BEAKER) 0.4 g/dL 0.2-0.4 (test vubq=820) ALPHA 2 FRACTION (BEAKER) 0.5 g/dL 0.5-0.9 (test xxji=807) BETA FRACTION (BEAKER) (test 1.0 g/dL 0.6-1.1 ispv=318) GAMMA GLOBULIN FRACTION 1.2 g/dL 0.7-1.7 (BEAKER) (test nnwu=470) INTERPRETATION-119 (BEAKER) Albumin decreased. Alpha (test rpzk=9555) globulin percentages increased. This suggests an acute phase response. [id number] (BEAKER) Анна Encarnacion MD (electronic (test dmaf=0694) signature) PROTEIN TOTAL SERUM, SPEP 6.1 gm/dL 6.0-8.3 (BEAKER) (test dykc=4930) POCT-GLUCOSE [id number] 14:34:00 Test Item Value Reference Range Comments POC-GLUCOSE METER (BEAKER) 137 mg/dL 70-110 TESTED AT [address] (test qrdl=5854) [facility] [address] ANTI-NUCLEAR ANTIBODY (ROSLYN)2017-07-22 13:24:00 Test Item Value Reference Range Comments ANTI-NUCLEAR ANTIBODY (ROSLYN) (BEAKER) (test Positive Negative suxm=691) ROSLYN TITER AND [id number] 13:24:00 Test Item Value Reference Range Comments ROSLYN TITER (BEAKER) (test nwlr=3002) :640 ROSLYN PATTERN (BEAKER) (test dcaz=9054) Homogeneous [id number] 12:50:00 Test Item Value Reference Range Comments PHOSPHORUS (BEAKER) (test yymd=947) 2.5 mg/dL 2.3-4.7 BASIC METABOLIC [id number] 12:50:00 Test Item Value Reference Range Comments SODIUM (BEAKER) (test 145 meq/L 136-145 wtfb=177) POTASSIUM (BEAKER) (test 3.6 meq/L 3.5-5.1 vuzb=715) CHLORIDE (BEAKER) (test 107 meq/L 98-107 gnxc=940) CO2 (BEAKER) (test 30 meq/L 22-29 yidb=023) BLOOD UREA NITROGEN 37 mg/dL 7-21 (BEAKER) (test rwul=287) CREATININE (BEAKER) (test 1.69 mg/dL 0.57-1.25 wzat=775) GLUCOSE RANDOM (BEAKER) 154 mg/dL 70-105 (test otze=516) CALCIUM (BEAKER) (test 8.9 mg/dL 8.4-10.2 feip=431) EGFR (BEAKER) (test 36 mL/min/1.73 sq m ESTIMATED GFR IS NOT ggmk=8102) ACCURATE CREATININE CLEARANCE IN PREDICTING GLOMERULAR FILTRATION RATE. ESTIMATED GFR IS NOT APPLICABLE FOR DIALYSIS PATIENTS. BLOOD GAS, [id number] 12:36:00 Test Item Value Reference Range Comments PH ARTERIAL (BEAKER) (test lydl=718) 7.48 7.35-7.45 PCO2 ARTERIAL (BEAKER) (test ehsx=516) 44 mmHg 35-45 PO2 ARTERIAL (BEAKER) (test vvqk=333) 156 mmHg 80-90 O2 SATURATION ARTERIAL (BEAKER) (test zlrm=052) 99.1 % 96.0-97.0 HCO3 ARTERIAL (BEAKER) (test yfjx=157) 32 mmol/L 21-29 BASE EXCESS ARTERIAL (BEAKER) (test mwdu=062) 7.4 mmol/L -2.0-3.0 PATIENT TEMPERATURE (BEAKER) (test zbfc=2492) 37.4 C FIO2 (BEAKER) (test wwji=8627) 80.0 % POCT-GLUCOSE [id number] 12:26:00 Test Item Value Reference Range Comments POC-GLUCOSE METER (BEAKER) 147 mg/dL 70-110 TESTED AT [facility] [address] [facility] (test oaoc=7110) [facility] [address] URINE [id number] 11:56:00 Test Item Value Reference Range Comments CULTURE (BEAKER) (test jetp=2470) No growth POCT-GLUCOSE [id number] 11:11:00 Test Item Value Reference Range Comments POC-GLUCOSE METER (BEAKER) 172 mg/dL 70-110 TESTED AT [address] (test vwnz=0691) [place] [id number] POCT-GLUCOSE [id number] 09:54:00 Test Item Value Reference Range Comments POC-GLUCOSE METER (BEAKER) 196 mg/dL 70-110 TESTED AT [address] (test yaot=2041) [place] [address] LACTIC ACID, ARTERIAL, WHOLE [id number] 09:07:00 Test Item Value Reference Range Comments LACTATE BLOOD ARTERIAL (2) (BEAKER) (test 0.7 mmol/L 0.5-2.2 donf=7714) Effective 08/06/2015: Units/Reference Range ChangeNew: 0.5-2.2 mmol/L Previous: 5 -20 mg/[id number] 09:06:00 Test Item Value Reference Range Comments MAGNESIUM (BEAKER) (test zpwa=704) 2.2 mg/dL 1.6-2.6 POCT-GLUCOSE [id number] 08:39:00 Test Item Value Reference Range Comments POC-GLUCOSE METER (BEAKER) 188 mg/dL 70-110 TESTED AT [address] (test vcvb=7692) [place] [address] POCT-GLUCOSE [id number] 08:37:00 Test Item Value Reference Range Comments POC-GLUCOSE METER (BEAKER) 195 mg/dL 70-110 TESTED AT [address] (test juaf=2652) [place] [id number] BLOOD GAS, [id number] 06:46:00 Test Item Value Reference Range Comments PH ARTERIAL (BEAKER) (test ovdk=679) 7.47 7.35-7.45 PCO2 ARTERIAL (BEAKER) (test eewz=463) 44 mmHg 35-45 PO2 ARTERIAL (BEAKER) (test aody=546) 57 mmHg 80-90 O2 SATURATION ARTERIAL (BEAKER) (test jeps=166) 91.1 % 96.0-97.0 HCO3 ARTERIAL (BEAKER) (test srqs=861) 32 mmol/L 21-29 BASE EXCESS ARTERIAL (BEAKER) (test ojrh=709) 7.1 mmol/L -2.0-3.0 PATIENT TEMPERATURE (BEAKER) (test gpgo=7025) 37.0 C [id number] 06:14:00 Test Item Value Reference Range Comments RPR SCREEN (BEAKER) (test wbcw=307) Nonreactive Nonreactive CALCIUM, [id number] 05:52:00 Test Item Value Reference Range Comments CALCIUM IONIZED (BEAKER) (test rupx=446) 1.13 mmol/L 1.12-1.27 PH, BLOOD (BEAKER) (test qmyo=9303) 7.46 [id number] 05:42:00 Test Item Value Reference Range Comments PHOSPHORUS (BEAKER) (test fwqc=148) 2.2 mg/dL 2.3-4.7 [id number] 05:42:00 Test Item Value Reference Range Comments MAGNESIUM (BEAKER) (test imhl=133) 2.1 mg/dL 1.6-2.6 HEPATIC FUNCTION [id number] 05:42:00 Test Item Value Reference Range Comments TOTAL PROTEIN (BEAKER) (test jtfg=628) 6.2 gm/dL 6.0-8.3 ALBUMIN (BEAKER) (test oqna=8664) 3.1 g/dL 3.5-5.0 BILIRUBIN TOTAL (BEAKER) (test cpry=228) 1.4 mg/dL 0.2-1.2 BILIRUBIN DIRECT (BEAKER) (test scdt=424) 0.7 mg/dL 0.1-0.5 ALKALINE PHOSPHATASE (BEAKER) (test lygt=365) 49 U/L 40-150 AST (SGOT) (BEAKER) (test oqqi=915) 74 U/L 5-34 ALT (SGPT) (BEAKER) (test fjmd=332) 37 U/L 6-55 LACTATE DEHYDROGENASE (LDH)2017-07-22 05:42:00 Test Item Value Reference Range Comments LACTATE DEHYDROGENASE (BEAKER) (test qkal=402) 1339 U/L 125-220 [id number] 05:40:00 Test Item Value Reference Range Comments PHOSPHORUS (BEAKER) (test zazy=615) 2.2 mg/dL 2.3-4.7 BASIC METABOLIC [id number] 05:40:00 Test Item Value Reference Range Comments SODIUM (BEAKER) (test 144 meq/L 136-145 jbte=418) POTASSIUM (BEAKER) (test 4.0 meq/L 3.5-5.1 voab=176) CHLORIDE (BEAKER) (test 107 meq/L 98-107 epsl=606) CO2 (BEAKER) (test 28 meq/L 22-29 yhlx=742) BLOOD UREA NITROGEN 36 mg/dL 7-21 (BEAKER) (test vfyi=101) CREATININE (BEAKER) (test 1.79 mg/dL 0.57-1.25 wnmi=412) GLUCOSE RANDOM (BEAKER) 183 mg/dL 70-105 (test ajej=383) CALCIUM (BEAKER) (test 8.9 mg/dL 8.4-10.2 ucsn=638) EGFR (BEAKER) (test 34 mL/min/1.73 sq m ESTIMATED GFR IS NOT pvqt=2145) ACCURATE CREATININE CLEARANCE IN PREDICTING GLOMERULAR FILTRATION RATE. ESTIMATED GFR IS NOT APPLICABLE FOR DIALYSIS PATIENTS. OXYGEN SATURATION, [id number] 05:29:00 Test Item Value Reference Range Comments O2 SATURATION (MEASURED) (BEAKER) (test cajm=0326) 54.7 % [id number] 05:29:00 Test Item Value Reference Range Comments PARTIAL THROMBOPLASTIN TIME (BEAKER) (test 70.7 seconds 22.5-36.0 vhhn=109) CBC W/PLT COUNT & AUTO [id number] 05:24:00 Test Item Value Reference Range Comments WHITE BLOOD CELL COUNT (BEAKER) (test evao=279) 13.0 K/ L 3.5-10.5 RED BLOOD CELL COUNT (BEAKER) (test sqmf=295) 3.04 M/ L 3.93-5.22 HEMOGLOBIN (BEAKER) (test hgsc=894) 9.0 GM/DL 11.2-15.7 HEMATOCRIT (BEAKER) (test mkhl=642) 29.0 % 34.1-44.9 MEAN CORPUSCULAR VOLUME (BEAKER) (test avop=448) 95.4 fL 79.4-94.8 MEAN CORPUSCULAR HEMOGLOBIN (BEAKER) (test 29.6 pg 25.6-32.2 uday=628) MEAN CORPUSCULAR HEMOGLOBIN CONC (BEAKER) (test 31.0 GM/DL 32.2-35.5 wnnn=326) RED CELL DISTRIBUTION WIDTH (BEAKER) (test 15.5 % 11.7-14.4 uzxr=629) PLATELET COUNT (BEAKER) (test phwb=019) 132 K/CU MM 150-450 MEAN PLATELET VOLUME (BEAKER) (test hwss=406) 11.4 fL 9.4-12.3 NUCLEATED RED BLOOD CELLS (BEAKER) (test 0 /100 WBC 0-0 acko=144) NEUTROPHILS RELATIVE PERCENT (BEAKER) (test 80 % uxrr=190) LYMPHOCYTES RELATIVE PERCENT (BEAKER) (test 10 % hled=744) MONOCYTES RELATIVE PERCENT (BEAKER) (test 9 % bnox=362) EOSINOPHILS RELATIVE PERCENT (BEAKER) (test 0 % nwfq=935) BASOPHILS RELATIVE PERCENT (BEAKER) (test 0 % mxrk=077) NEUTROPHILS ABSOLUTE COUNT (BEAKER) (test 10.44 K/ L 1.56-6.13 qqfg=446) LYMPHOCYTES ABSOLUTE COUNT (BEAKER) (test 1.29 K/ L 1.18-3.74 iwdr=094) MONOCYTES ABSOLUTE COUNT (BEAKER) (test 1.12 K/ L 0.24-0.36 fkhi=223) EOSINOPHILS ABSOLUTE COUNT (BEAKER) (test 0.01 K/ L 0.04-0.36 iqit=831) BASOPHILS ABSOLUTE COUNT (BEAKER) (test 0.04 K/ L 0.01-0.08 cjal=412) IMMATURE GRANULOCYTES-RELATIVE PERCENT (BEAKER) 1 % 0-1 (test csbg=8479) RAD, CHEST, 1 VIEW, NON [id number] 04:45:00Reason for exam:->respiratory insufficiencyFINAL REPORT CLINICAL INDICATION: Respiratory insufficiency Comparison: 07/21/2017 The cardiomediastinal contours are stable. The left hemidiaphragm is slightly elevated. Centralpulmonary vascular congestion and bilateral parenchymal opacities are unchanged. There is no pneumothorax. A femoral Impella device remains in place. Signed: Adelso Sorensenort Verified Date/Time:07/22/2017 04:45:12 Reading Location: [address] Reading Room POCT-GLUCOSE [id number] 03:01:00 Test Item Value Reference Range Comments POC-GLUCOSE METER (BEAKER) 115 mg/dL 70-110 TESTED AT [address] (test kkop=5104) [facility] [address] POCT-GLUCOSE [id number] 00:14:00 Test Item Value Reference Range Comments POC-GLUCOSE METER (BEAKER) 137 mg/dL 70-110 TESTED AT [address] (test gkkk=5896) [place] [id number] 00:09:00 Test Item Value Reference Range Comments POTASSIUM (BEAKER) (test gzgp=964) 3.8 meq/L 3.5-5.1 PRN - repeat glucose levels every 1 hour or as specified by insulin titration orders until glucose level is less than 450 mg/dLCheck Serum Potassium level 2 hours after oral potassium replacement completed or 30 min after intravenous potassium replacement.[id number] 00:09:00 Test Item Value Reference Range Comments MAGNESIUM (BEAKER) (test paks=558) 2.5 mg/dL 1.6-2.6 PRN - repeat glucose levels every 1 hour or as specified by insulin titration orders until glucose level is less than 450 mg/dLCheck Serum Potassium level 2 hours after oral potassium replacement completed or 30 min after intravenous potassium replacement.[id number] 00:09:00 Test Item Value Reference Range Comments PHOSPHORUS (BEAKER) (test zwlz=409) 1.9 mg/dL 2.3-4.7 PRN - repeat glucose levels every 1 hour or as specified by insulin titration orders until glucose level is less than 450 mg/dLCheck Serum Potassium level 2 hours after oral potassium replacement completed or 30 min after intravenous potassium replacement.[id number] 00:09:00 Test Item Value Reference Range Comments GLUCOSE RANDOM (BEAKER) (test oimd=225) 155 mg/dL 70-105 PRN - repeat glucose levels every 1 hour or as specified by insulin titration orders until glucose level is less than 450 mg/dLCheck Serum Potassium level 2 hours after oral potassium replacement completed or 30 min after intravenous potassium replacement.BASIC METABOLIC [id number] 00:09:00 Test Item Value Reference Range Comments SODIUM (BEAKER) (test 142 meq/L 136-145 forq=798) POTASSIUM (BEAKER) (test 3.8 meq/L 3.5-5.1 xxtq=384) CHLORIDE (BEAKER) (test 105 meq/L 98-107 ycsf=426) CO2 (BEAKER) (test 30 meq/L 22-29 zwdw=038) BLOOD UREA NITROGEN 37 mg/dL 7-21 (BEAKER) (test xvok=754) CREATININE (BEAKER) (test 1.80 mg/dL 0.57-1.25 ctnr=518) GLUCOSE RANDOM (BEAKER) 155 mg/dL 70-105 (test ljai=067) CALCIUM (BEAKER) (test 8.8 mg/dL 8.4-10.2 pfjb=470) EGFR (BEAKER) (test 34 mL/min/1.73 sq m ESTIMATED GFR IS NOT hwvl=5205) ACCURATE CREATININE CLEARANCE IN PREDICTING GLOMERULAR FILTRATION RATE. ESTIMATED GFR IS NOT APPLICABLE FOR DIALYSIS PATIENTS. PRN - repeat glucose levels every 1 hour or as specified by insulin titration orders until glucose level is less than 450 mg/dLCheck Serum Potassium level 2 hours after oral potassium replacement completed or 30 min after intravenous potassium replacement.[id number] 00:06:00 Test Item Value Reference Range Comments PARTIAL THROMBOPLASTIN TIME (BEAKER) (test 62.0 seconds 22.5-36.0 fnkc=562) BLOOD GAS, [id number] 20:39:00 Test Item Value Reference Range Comments PH ARTERIAL (BEAKER) (test uolc=446) 7.45 7.35-7.45 PCO2 ARTERIAL (BEAKER) (test kwkd=415) 46 mmHg 35-45 PO2 ARTERIAL (BEAKER) (test pufx=551) 64 mmHg 80-90 O2 SATURATION ARTERIAL (BEAKER) (test zgxg=657) 92.0 % 96.0-97.0 HCO3 ARTERIAL (BEAKER) (test evpk=257) 31 mmol/L 21-29 BASE EXCESS ARTERIAL (BEAKER) (test tkul=653) 6.7 mmol/L -2.0-3.0 PATIENT TEMPERATURE (BEAKER) (test iliv=1963) 38.1 C FIO2 (BEAKER) (test pzxo=9977) 80.0 % POTASSIUM-STAT [id number] 20:39:00 Test Item Value Reference Range Comments POTASSIUM (BEAKER) (test ztdj=094) 3.4 meq/L 3.6-5.5 [id number] 20:16:00 Test Item Value Reference Range Comments FERRITIN (BEAKER) (test yyyc=847) 651 ng/mL 5-275 POCT-GLUCOSE [id number] 20:10:00 Test Item Value Reference Range Comments POC-GLUCOSE METER (BEAKER) 180 mg/dL 70-110 TESTED AT [facility] [address] (test qxaq=7550) [facility] [address] POCT-GLUCOSE [id number] 20:10:00 Test Item Value Reference Range Comments POC-GLUCOSE METER (BEAKER) 197 mg/dL 70-110 TESTED AT [facility] [address] (test qewm=7863) [facility] [address] [id number] 19:54:00 Test Item Value Reference Range Comments PARTIAL THROMBOPLASTIN TIME (BEAKER) (test 62.4 seconds 22.5-36.0 kfxr=361) [id number] 19:53:00 Test Item Value Reference Range Comments MAGNESIUM (BEAKER) (test zlet=097) 2.2 mg/dL 1.6-2.6 HEPATITIS A ANTIBODY, [id number] 19:25:00 Test Item Value Reference Range Comments HEPATITIS A IGG ANTIBODY (BEAKER) (test jndt=7005) Reactive Nonreactive GLUCOSE-STAT [id number] 19:24:00 Test Item Value Reference Range Comments GLUCOSE RANDOM (BEAKER) (test sqwj=320) 174 mg/dL 70-110 HGB/HCT (H&H) - STAT [id number] 19:24:00 Test Item Value Reference Range Comments HEMOGLOBIN (BEAKER) (test fbdw=585) 10.1 g/dL 12.0-15.0 HEMATOCRIT (BEAKER) (test fyyh=729) 30.0 % 36.0-45.0 POTASSIUM-STAT [id number] 19:24:00 Test Item Value Reference Range Comments POTASSIUM (BEAKER) (test sttb=434) 3.4 meq/L 3.6-5.5 HEPATITIS B CORE ANTIBODY, [id number] 19:21:00 Test Item Value Reference Range Comments HEPATITIS B CORE TOTAL ANTIBODY (BEAKER) (test Nonreactive Nonreactive rxea=006) HEPATITIS PANEL, [id number] 19:21:00 Test Item Value Reference Range Comments HEPATITIS A IGM ANTIBODY (BEAKER) (test Nonreactive Nonreactive wpwf=721) HEPATITIS B CORE IGM ANTIBODY (BEAKER) (test Nonreactive Nonreactive ncvz=199) HEPATITIS C ANTIBODY (BEAKER) (test hhrn=722) Nonreactive Nonreactive HEPATITIS B SURFACE ANTIGEN (2) (BEAKER) (test Nonreactive Nonreactive cbvd=5608) HIV-1 ANTIGEN WITH HIV-1/2 [id number] 19:21:00 Test Item Value Reference Range Comments HIV-1 ANTIGEN WITH HIV 1\T\2 ANTIBODY (2) Nonreactive Nonreactive (BEAKER) (test lgbn=3865) BASIC METABOLIC [id number] 18:05:00 Test Item Value Reference Range Comments SODIUM (BEAKER) (test 141 meq/L 136-145 ggfq=119) POTASSIUM (BEAKER) (test 4.0 meq/L 3.5-5.1 mnbv=359) CHLORIDE (BEAKER) (test 104 meq/L 98-107 qulu=583) CO2 (BEAKER) (test 26 meq/L 22-29 hgdl=343) BLOOD UREA NITROGEN 41 mg/dL 7-21 (BEAKER) (test nhox=461) CREATININE (BEAKER) (test 2.07 mg/dL 0.57-1.25 gsfs=996) GLUCOSE RANDOM (BEAKER) 242 mg/dL 70-105 (test coko=985) CALCIUM (BEAKER) (test 8.9 mg/dL 8.4-10.2 jqln=271) EGFR (BEAKER) (test 29 mL/min/1.73 sq m ESTIMATED GFR IS NOT ambk=7220) ACCURATE CREATININE CLEARANCE IN PREDICTING GLOMERULAR FILTRATION RATE. ESTIMATED GFR IS NOT APPLICABLE FOR DIALYSIS PATIENTS. Check Serum Potassium level 2 hours after oral potassium replacement completed or 30 min after intravenous potassium replacement.[id number] 18:02:00 Test Item Value Reference Range Comments POTASSIUM (BEAKER) (test zhhl=080) 4.0 meq/L 3.5-5.1 Check Serum Potassium level 2 hours after oral potassium replacement completed or 30 min after intravenous potassium replacement.[id number] 18:02:00 Test Item Value Reference Range Comments MAGNESIUM (BEAKER) (test xxwu=353) 2.2 mg/dL 1.6-2.6 Check Serum Potassium level 2 hours after oral potassium replacement completed or 30 min after intravenous potassium replacement.[id number] 18:02:00 Test Item Value Reference Range Comments PHOSPHORUS (BEAKER) (test gilr=079) 2.1 mg/dL 2.3-4.7 Check Serum Potassium level 2 hours after oral potassium replacement completed or 30 min after intravenous potassium replacement.POCT-GLUCOSE [id number] 17:31:00 Test Item Value Reference Range Comments POC-GLUCOSE METER (BEAKER) 253 mg/dL 70-110 TESTED AT [address] (test psnb=5049) [place] [address] VITAMIN D, [id number] 17:31:00 Test Item Value Reference Range Comments VITAMIN D 25-OH (BEAKER) (test vcbg=1700) 5.8 ng/mL 6.6-49.9 Effective 01/12/2017: Reference Range ChangeNew: 6.6-49.9 ng/mL Previous: 13.0 -47.8 ng/mLRecommended Vitamin D Target Range: 30.0-40.0 ng/mLPOCT-GLUCOSE [id number] 17:31:00 Test Item Value Reference Range Comments POC-GLUCOSE METER (BEAKER) 269 mg/dL 70-110 TESTED AT [address] (test qcwh=7499) [place] [address] [id number] 17:09:00 Test Item Value Reference Range Comments TRANSFERRIN (BEAKER) (test pvaq=438) 166 mg/dL 174-382 [id number] 17:09:00 Test Item Value Reference Range Comments PREALBUMIN (BEAKER) (test yivk=363) 14 mg/dL 14-45 IRON, [id number] 17:09:00 Test Item Value Reference Range Comments IRON (BEAKER) (test pdwr=050) 57 ug/dL 40-160 TROPONIN [id number] 16:59:00 Test Item Value Reference Range Comments TROPONIN I (BEAKER) (test blbo=816) 45.70 ng/mL 0.00-0.03 Troponin I (TnI) levels [...] failure, acidosis, acute neurological disease, and persistent tachyarrhythmia.[id number] 16:49:00 Test Item Value Reference Range Comments CREATININE (BEAKER) (test 2.17 mg/dL 0.57-1.25 gaaw=363) EGFR (BEAKER) (test 27 mL/min/1.73 sq m ESTIMATED GFR IS NOT hjqo=8021) ACCURATE CREATININE CLEARANCE IN PREDICTING GLOMERULAR FILTRATION RATE. ESTIMATED GFR IS NOT APPLICABLE FOR DIALYSIS PATIENTS. URIC [id number] 16:48:00 Test Item Value Reference Range Comments URIC ACID (BEAKER) (test wpqw=754) 8.2 mg/dL 2.6-7.2 LIPID [id number] 16:48:00 Test Item Value Reference Range Comments TRIGLYCERIDES (BEAKER) (test fvnp=251) 122 mg/dL CHOLESTEROL (BEAKER) (test kvax=706) 204 mg/dL HDL CHOLESTEROL (BEAKER) (test mcwi=349) 85 mg/dL LDL CHOLESTEROL CALCULATED (BEAKER) (test 95 mg/dL ucmu=693) Triglyceride Reference Range: Low Risk <150 Borderline 150- 199 High Risk 200-499 Very High Risk >=500Cholesterol Reference Range: Low Risk <200 Borderline 200-239 High Risk > 240HDL Cholesterol Reference Range: Low Risk >=60 High Risk <40LDL Cholesterol Reference Range: Optimal <100 Near Optimal 100-129 Borderline 130-159 High 160-189 Very High >=[id number] 16:48:00 Test Item Value Reference Range Comments AMYLASE (BEAKER) (test ptmp=417) 228 U/L 25-125 GAMMA GLUTAMYL TRANSFERASE (GGT)[id number] 16:48:00 Test Item Value Reference Range Comments GAMMA GLUTAMYL TRANSFERASE (BEAKER) (test yrdx=889) 52 U/L 9-64 RETICULOCYTE [id number] 16:39:00 Test Item Value Reference Range Comments RETICULOCYTE COUNT PCT (BEAKER) (test acxt=538) 3.8 % 0.5-1.7 TROPONIN [id number] 13:49:00 Test Item Value Reference Range Comments TROPONIN I (BEAKER) (test mpec=795) 43.19 ng/mL 0.00-0.03 Troponin I (TnI) levels [...] acute neurological disease, and persistent tachyarrhythmia.BASIC METABOLIC [id number] 12:22:00 Test Item Value Reference Range Comments SODIUM (BEAKER) (test 141 meq/L 136-145 bhmu=748) POTASSIUM (BEAKER) (test 3.9 meq/L 3.5-5.1 xpsc=394) CHLORIDE (BEAKER) (test 102 meq/L 98-107 geau=833) CO2 (BEAKER) (test 28 meq/L 22-29 brzy=591) BLOOD UREA NITROGEN 40 mg/dL 7-21 (BEAKER) (test ojad=204) CREATININE (BEAKER) (test 2.20 mg/dL 0.57-1.25 rnxz=387) GLUCOSE RANDOM (BEAKER) 238 mg/dL 70-105 (test hjee=909) CALCIUM (BEAKER) (test 8.9 mg/dL 8.4-10.2 zxqz=516) EGFR (BEAKER) (test 27 mL/min/1.73 sq m ESTIMATED GFR IS NOT tmtv=8294) ACCURATE CREATININE CLEARANCE IN PREDICTING GLOMERULAR FILTRATION RATE. ESTIMATED GFR IS NOT APPLICABLE FOR DIALYSIS PATIENTS. [id number] 12:17:00 Test Item Value Reference Range Comments POTASSIUM (BEAKER) (test ftvd=525) 3.9 meq/L 3.5-5.1 [id number] 12:17:00 Test Item Value Reference Range Comments MAGNESIUM (BEAKER) (test cyzt=362) 2.4 mg/dL 1.6-2.6 [id number] 12:17:00 Test Item Value Reference Range Comments PHOSPHORUS (BEAKER) (test ftdf=143) 3.7 mg/dL 2.3-4.7 [id number] 12:17:00 Test Item Value Reference Range Comments GLUCOSE RANDOM (BEAKER) (test fvbw=841) 238 mg/dL 70-105 [id number] 12:04:00 Test Item Value Reference Range Comments PARTIAL THROMBOPLASTIN TIME (BEAKER) (test 59.3 seconds 22.5-36.0 kcuu=967) SPUTUM CULTURE + GRAM [id number] 11:47:00 Test Item Value Reference Range Comments CULTURE (BEAKER) (test <1+ Normal respiratory pascual xuit=2623) present GRAM STAIN RESULT (BEAKER) 1+ WBCs (test jhod=9931) GRAM STAIN RESULT (BEAKER) 0-5 epithelial cells (test yjah=52423) GRAM STAIN RESULT (BEAKER) No organisms seen (test vwci=55322) HEMOGLOBIN AND [id number] 11:26:00 Test Item Value Reference Range Comments HEMOGLOBIN (BEAKER) (test nmyx=853) 7.9 GM/DL 11.2-15.7 HEMATOCRIT (BEAKER) (test zwjj=846) 26.5 % 34.1-44.9 BLOOD GAS, [id number] 10:43:00 Test Item Value Reference Range Comments PH ARTERIAL (BEAKER) (test duad=112) 7.42 7.35-7.45 PCO2 ARTERIAL (BEAKER) (test hodd=371) 44 mmHg 35-45 PO2 ARTERIAL (BEAKER) (test zggw=362) 51 mmHg 80-90 O2 SATURATION ARTERIAL (BEAKER) (test uyic=057) 88.2 % 96.0-97.0 HCO3 ARTERIAL (BEAKER) (test xnfk=692) 28 mmol/L 21-29 BASE EXCESS ARTERIAL (BEAKER) (test tkqu=645) 3.2 mmol/L -2.0-3.0 PATIENT TEMPERATURE (BEAKER) (test lpdt=6056) 36.0 C FIO2 (BEAKER) (test gjps=7158) 80.0 % URINE [id number] 09:44:00 Test Item Value Reference Range Comments CULTURE (BEAKER) (test ocbj=2475) No growth BASIC METABOLIC [id number] 06:28:00 Test Item Value Reference Range Comments SODIUM (BEAKER) (test 141 meq/L 136-145 ykox=984) POTASSIUM (BEAKER) (test 4.1 meq/L 3.5-5.1 noxc=175) CHLORIDE (BEAKER) (test 101 meq/L 98-107 asxy=175) CO2 (BEAKER) (test 29 meq/L 22-29 btdt=594) BLOOD UREA NITROGEN 40 mg/dL 7-21 (BEAKER) (test cvon=162) CREATININE (BEAKER) (test 2.46 mg/dL 0.57-1.25 nesk=444) GLUCOSE RANDOM (BEAKER) 236 mg/dL 70-105 (test agbl=029) CALCIUM (BEAKER) (test 8.6 mg/dL 8.4-10.2 ynjv=509) EGFR (BEAKER) (test 24 mL/min/1.73 sq m ESTIMATED GFR IS NOT vhxc=1050) ACCURATE CREATININE CLEARANCE IN PREDICTING GLOMERULAR FILTRATION RATE. ESTIMATED GFR IS NOT APPLICABLE FOR DIALYSIS PATIENTS. [id number] 06:26:00 Test Item Value Reference Range Comments PHOSPHORUS (BEAKER) (test shkf=783) 4.6 mg/dL 2.3-4.7 POCT-GLUCOSE [id number] 06:05:00 Test Item Value Reference Range Comments POC-GLUCOSE METER (BEAKER) 278 mg/dL 70-110 TESTED AT [address] (test acmf=6169) [place] [id number] POCT-GLUCOSE [id number] 06:05:00 Test Item Value Reference Range Comments POC-GLUCOSE METER (BEAKER) 231 mg/dL 70-110 TESTED AT [address] (test exhi=1884) [place] [id number] POCT-GLUCOSE [id number] 06:05:00 Test Item Value Reference Range Comments POC-GLUCOSE METER (BEAKER) 190 mg/dL 70-110 TESTED AT [address] (test alrf=2023) [place] [address] [id number] 05:56:00 Test Item Value Reference Range Comments PARTIAL THROMBOPLASTIN TIME (BEAKER) (test 72.5 seconds 22.5-36.0 eiwq=980) RAD, CHEST, 1 VIEW, NON [id number] 04:38:00Reason for exam:->respiratory insufficiencyFINAL REPORT CLINICAL INDICATION: Respiratory insufficiency Comparison: 07/20/2017 The cardiomediastinal contours are stable. Central pulmonary vascular prominence and bilateral parenchymal opacities are similar within variation of acquisition technique. There is no pneumothorax. A femoral Impella device is stable in position. Signed: Adelso Sorensen MDReport Verified Date/Time:07/21/2017 04:38:32 Reading Location: [address] Reading Room BASIC METABOLIC [id number] 04:06:00 Test Item Value Reference Range Comments SODIUM (BEAKER) (test 142 meq/L 136-145 erne=879) POTASSIUM (BEAKER) (test 3.9 meq/L 3.5-5.1 ytli=055) CHLORIDE (BEAKER) (test 102 meq/L 98-107 opuj=260) CO2 (BEAKER) (test 31 meq/L 22-29 hdan=339) BLOOD UREA NITROGEN 40 mg/dL 7-21 (BEAKER) (test ywsi=771) CREATININE (BEAKER) (test 2.37 mg/dL 0.57-1.25 nnwt=206) GLUCOSE RANDOM (BEAKER) 206 mg/dL 70-105 (test tsca=756) CALCIUM (BEAKER) (test 8.5 mg/dL 8.4-10.2 vxaz=239) EGFR (BEAKER) (test 25 mL/min/1.73 sq m ESTIMATED GFR IS NOT hbef=1694) ACCURATE CREATININE CLEARANCE IN PREDICTING GLOMERULAR FILTRATION RATE. ESTIMATED GFR IS NOT APPLICABLE FOR DIALYSIS PATIENTS. BLOOD GAS, [id number] 03:53:00 Test Item Value Reference Range Comments PH ARTERIAL (BEAKER) (test iolk=233) 7.36 7.35-7.45 PCO2 ARTERIAL (BEAKER) (test rblu=633) 55 mmHg 35-45 PO2 ARTERIAL (BEAKER) (test hscd=885) 94 mmHg 80-90 O2 SATURATION ARTERIAL (BEAKER) (test cwmi=541) 96.0 % 96.0-97.0 HCO3 ARTERIAL (BEAKER) (test mhyg=286) 30 mmol/L 21-29 BASE EXCESS ARTERIAL (BEAKER) (test gtqi=846) 4.2 mmol/L -2.0-3.0 PATIENT TEMPERATURE (BEAKER) (test nqiz=9421) 38.8 C FIO2 (BEAKER) (test rylo=7324) 80.0 % CALCIUM, [id number] 03:51:00 Test Item Value Reference Range Comments CALCIUM IONIZED (BEAKER) (test rdpd=665) 1.07 mmol/L 1.12-1.27 PH, BLOOD (BEAKER) (test clja=1665) 7.35 OXYGEN SATURATION, [id number] 03:50:00 Test Item Value Reference Range Comments O2 SATURATION (MEASURED) (BEAKER) (test ylhm=8335) 72.6 % [id number] 03:47:00 Test Item Value Reference Range Comments PHOSPHORUS (BEAKER) (test pauk=561) 4.5 mg/dL 2.3-4.7 [id number] 03:47:00 Test Item Value Reference Range Comments MAGNESIUM (BEAKER) (test ygku=575) 2.1 mg/dL 1.6-2.6 HEPATIC FUNCTION [id number] 03:47:00 Test Item Value Reference Range Comments TOTAL PROTEIN (BEAKER) (test qenn=904) 6.1 gm/dL 6.0-8.3 ALBUMIN (BEAKER) (test mmgc=3864) 3.1 g/dL 3.5-5.0 BILIRUBIN TOTAL (BEAKER) (test nsoc=866) 1.4 mg/dL 0.2-1.2 BILIRUBIN DIRECT (BEAKER) (test pmwo=602) 0.6 mg/dL 0.1-0.5 ALKALINE PHOSPHATASE (BEAKER) (test rbzc=488) 45 U/L 40-150 AST (SGOT) (BEAKER) (test xzdr=744) 94 U/L 5-34 ALT (SGPT) (BEAKER) (test ldfe=671) 48 U/L 6-55 LACTATE DEHYDROGENASE (LDH)2017-07-21 03:47:00 Test Item Value Reference Range Comments LACTATE DEHYDROGENASE (BEAKER) (test zhnj=217) 1470 U/L 125-220 CBC W/PLT COUNT & AUTO [id number] 03:41:00 Test Item Value Reference Range Comments WHITE BLOOD CELL COUNT (BEAKER) (test okgo=616) 14.1 K/ L 3.5-10.5 RED BLOOD CELL COUNT (BEAKER) (test ljbh=024) 2.81 M/ L 3.93-5.22 HEMOGLOBIN (BEAKER) (test kzmj=572) 8.6 GM/DL 11.2-15.7 HEMATOCRIT (BEAKER) (test dfuy=152) 28.2 % 34.1-44.9 MEAN CORPUSCULAR VOLUME (BEAKER) (test dkqb=514) 100.4 fL 79.4-94.8 MEAN CORPUSCULAR HEMOGLOBIN (BEAKER) (test 30.6 pg 25.6-32.2 vlqj=695) MEAN CORPUSCULAR HEMOGLOBIN CONC (BEAKER) (test 30.5 GM/DL 32.2-35.5 ukcm=947) RED CELL DISTRIBUTION WIDTH (BEAKER) (test 13.1 % 11.7-14.4 pefl=824) PLATELET COUNT (BEAKER) (test pchz=723) 140 K/CU MM 150-450 MEAN PLATELET VOLUME (BEAKER) (test fgmo=499) 11.1 fL 9.4-12.3 NUCLEATED RED BLOOD CELLS (BEAKER) (test 0 /100 WBC 0-0 rymy=786) NEUTROPHILS RELATIVE PERCENT (BEAKER) (test 86 % waoc=533) LYMPHOCYTES RELATIVE PERCENT (BEAKER) (test 6 % mras=690) MONOCYTES RELATIVE PERCENT (BEAKER) (test 8 % vwie=216) EOSINOPHILS RELATIVE PERCENT (BEAKER) (test 0 % xlpg=424) BASOPHILS RELATIVE PERCENT (BEAKER) (test 0 % byrv=313) NEUTROPHILS ABSOLUTE COUNT (BEAKER) (test 12.13 K/ L 1.56-6.13 step=386) LYMPHOCYTES ABSOLUTE COUNT (BEAKER) (test 0.81 K/ L 1.18-3.74 gttg=124) MONOCYTES ABSOLUTE COUNT (BEAKER) (test 1.07 K/ L 0.24-0.36 hujs=935) EOSINOPHILS ABSOLUTE COUNT (BEAKER) (test 0.00 K/ L 0.04-0.36 kfwj=335) BASOPHILS ABSOLUTE COUNT (BEAKER) (test 0.02 K/ L 0.01-0.08 zxbo=561) IMMATURE GRANULOCYTES-RELATIVE PERCENT (BEAKER) 1 % 0-1 (test ddnv=2530) LACTIC ACID, ARTERIAL, WHOLE [id number] 03:39:00 Test Item Value Reference Range Comments LACTATE BLOOD ARTERIAL (2) (BEAKER) (test 0.9 mmol/L 0.5-2.2 fopz=2266) Effective 08/06/2015: Units/Reference Range ChangeNew: 0.5-2.2 mmol/L Previous: 5 -20 mg/dLTROPONIN [id number] 00:12:00 Test Item Value Reference Range Comments TROPONIN I (BEAKER) (test viwx=301) 60.74 ng/mL 0.00-0.03 Troponin I (TnI) levels [...] failure, acidosis, acute neurological disease, and persistent tachyarrhythmia.[id number] 23:42:00 Test Item Value Reference Range Comments PHOSPHORUS (BEAKER) (test lfmp=755) 4.9 mg/dL 2.3-4.7 BASIC METABOLIC [id number] 23:42:00 Test Item Value Reference Range Comments SODIUM (BEAKER) (test 141 meq/L 136-145 owbv=059) POTASSIUM (BEAKER) (test 4.2 meq/L 3.5-5.1 pjde=763) CHLORIDE (BEAKER) (test 102 meq/L 98-107 tpnx=108) CO2 (BEAKER) (test 29 meq/L 22-29 okcd=111) BLOOD UREA NITROGEN 40 mg/dL 7-21 (BEAKER) (test layk=196) CREATININE (BEAKER) (test 2.36 mg/dL 0.57-1.25 yzqi=479) GLUCOSE RANDOM (BEAKER) 200 mg/dL 70-105 (test jbcr=188) CALCIUM (BEAKER) (test 8.4 mg/dL 8.4-10.2 fjpj=846) EGFR (BEAKER) (test 25 mL/min/1.73 sq m ESTIMATED GFR IS NOT hrcl=1567) ACCURATE CREATININE CLEARANCE IN PREDICTING GLOMERULAR FILTRATION RATE. ESTIMATED GFR IS NOT APPLICABLE FOR DIALYSIS PATIENTS. [id number] 23:39:00 Test Item Value Reference Range Comments PARTIAL THROMBOPLASTIN TIME (BEAKER) (test 78.1 seconds 22.5-36.0 dhox=715) POCT-GLUCOSE [id number] 23:28:00 Test Item Value Reference Range Comments POC-GLUCOSE METER (BEAKER) 250 mg/dL 70-110 TESTED AT [facility] [address] (test nxre=6893) [facility] [address] POCT-GLUCOSE [id number] 22:19:00 Test Item Value Reference Range Comments POC-GLUCOSE METER (BEAKER) 202 mg/dL 70-110 TESTED AT [address] (test rpfi=8533) [facility] [address] HEPATIC FUNCTION [id number] 21:45:00 Test Item Value Reference Range Comments TOTAL PROTEIN (BEAKER) (test ixkw=781) 5.9 gm/dL 6.0-8.3 ALBUMIN (BEAKER) (test ywtj=0715) 3.1 g/dL 3.5-5.0 BILIRUBIN TOTAL (BEAKER) (test taie=617) 1.0 mg/dL 0.2-1.2 BILIRUBIN DIRECT (BEAKER) (test cnvq=106) 0.5 mg/dL 0.1-0.5 ALKALINE PHOSPHATASE (BEAKER) (test joxj=681) 46 U/L 40-150 AST (SGOT) (BEAKER) (test fdau=270) 95 U/L 5-34 ALT (SGPT) (BEAKER) (test kcgg=307) 47 U/L 6-55 BASIC METABOLIC [id number] 21:45:00 Test Item Value Reference Range Comments SODIUM (BEAKER) (test 141 meq/L 136-145 bgxr=175) POTASSIUM (BEAKER) (test 4.0 meq/L 3.5-5.1 whri=282) CHLORIDE (BEAKER) (test 103 meq/L 98-107 abte=416) CO2 (BEAKER) (test 27 meq/L 22-29 gspd=854) BLOOD UREA NITROGEN 40 mg/dL 7-21 (BEAKER) (test bthy=351) CREATININE (BEAKER) (test 2.30 mg/dL 0.57-1.25 hemu=712) GLUCOSE RANDOM (BEAKER) 192 mg/dL 70-105 (test minw=104) CALCIUM (BEAKER) (test 8.4 mg/dL 8.4-10.2 qvsd=923) EGFR (BEAKER) (test 25 mL/min/1.73 sq m ESTIMATED GFR IS NOT hmoe=6621) ACCURATE CREATININE CLEARANCE IN PREDICTING GLOMERULAR FILTRATION RATE. ESTIMATED GFR IS NOT APPLICABLE FOR DIALYSIS PATIENTS. [id number] 21:38:00 Test Item Value Reference Range Comments MAGNESIUM (BEAKER) (test ovxc=867) 2.1 mg/dL 1.6-2.6 LACTIC ACID, ARTERIAL, WHOLE [id number] 21:32:00 Test Item Value Reference Range Comments LACTATE BLOOD ARTERIAL (2) (BEAKER) (test 0.6 mmol/L 0.5-2.2 wpao=9426) Effective 08/06/2015: Units/Reference Range ChangeNew: 0.5-2.2 mmol/L Previous: 5 -20 mg/dLPOCT-GLUCOSE [id number] 21:21:00 Test Item Value Reference Range Comments POC-GLUCOSE METER (BEAKER) 198 mg/dL 70-110 TESTED AT [address] (test lsoj=3259) [facility] [address] POCT-GLUCOSE [id number] 21:21:00 Test Item Value Reference Range Comments POC-GLUCOSE METER (BEAKER) 155 mg/dL 70-110 TESTED AT [address] (test cfot=0271) [facility] [address] POCT-GLUCOSE [id number] 21:21:00 Test Item Value Reference Range Comments POC-GLUCOSE METER (BEAKER) 67 mg/dL 70-110 TESTED AT [address] (test kgrp=0673) [facility] [address] BLOOD GAS, [id number] 21:16:00 Test Item Value Reference Range Comments PH ARTERIAL (BEAKER) (test obty=686) 7.34 7.35-7.45 PCO2 ARTERIAL (BEAKER) (test hvun=051) 56 mmHg 35-45 PO2 ARTERIAL (BEAKER) (test jemj=918) 107 mmHg 80-90 O2 SATURATION ARTERIAL (BEAKER) (test fjvu=588) 97.3 % 96.0-97.0 HCO3 ARTERIAL (BEAKER) (test kbkg=194) 29 mmol/L 21-29 BASE EXCESS ARTERIAL (BEAKER) (test jmvl=109) 2.7 mmol/L -2.0-3.0 PATIENT TEMPERATURE (BEAKER) (test iygo=8861) 37.8 C FIO2 (BEAKER) (test crnb=8385) 100.0 % GLUCOSE-STAT [id number] 21:16:00 Test Item Value Reference Range Comments GLUCOSE RANDOM (BEAKER) (test oyqq=888) 188 mg/dL 70-110 HGB/HCT (H&H) - STAT [id number] 21:16:00 Test Item Value Reference Range Comments HEMOGLOBIN (BEAKER) (test veiw=544) 9.9 g/dL 12.0-15.0 HEMATOCRIT (BEAKER) (test xliv=310) 29.0 % 36.0-45.0 SODIUM NA-STAT [id number] 21:15:00 Test Item Value Reference Range Comments SODIUM (BEAKER) (test deds=532) 140 meq/L 135-148 POTASSIUM-STAT [id number] 21:15:00 Test Item Value Reference Range Comments POTASSIUM (BEAKER) (test ooig=160) 3.9 meq/L 3.6-5.5 BLOOD GAS, [id number] 19:44:00 Test Item Value Reference Range Comments PH ARTERIAL (BEAKER) (test imrm=269) 7.34 7.35-7.45 PCO2 ARTERIAL (BEAKER) (test gyjl=738) 31 mmHg 35-45 PO2 ARTERIAL (BEAKER) (test xbjq=530) 68 mmHg 80-90 O2 SATURATION ARTERIAL (BEAKER) (test stth=104) 92.1 % 96.0-97.0 HCO3 ARTERIAL (BEAKER) (test sxjz=450) 16 mmol/L 21-29 BASE EXCESS ARTERIAL (BEAKER) (test trei=794) -8.7 mmol/L -2.0-3.0 PATIENT TEMPERATURE (BEAKER) (test ddih=5109) 37.7 C FIO2 (BEAKER) (test ksqq=3535) 50.0 % POCT-GLUCOSE [id number] 18:30:00 Test Item Value Reference Range Comments POC-GLUCOSE METER (BEAKER) 90 mg/dL 70-110 TESTED AT [facility] [address] (test btkn=2585) [place] [address] TROPONIN [id number] 18:05:00 Test Item Value Reference Range Comments TROPONIN I (BEAKER) (test fnaw=575) 76.69 ng/mL 0.00-0.03 Troponin I (TnI) levels [...] acute neurological disease, and persistent tachyarrhythmia.BASIC METABOLIC [id number] 17:56:00 Test Item Value Reference Range Comments SODIUM (BEAKER) (test 143 meq/L 136-145 nigy=248) POTASSIUM (BEAKER) (test 3.8 meq/L 3.5-5.1 zesp=414) CHLORIDE (BEAKER) (test 104 meq/L 98-107 oxoj=203) CO2 (BEAKER) (test 29 meq/L 22-29 zwoc=115) BLOOD UREA NITROGEN 37 mg/dL 7-21 (BEAKER) (test khyy=226) CREATININE (BEAKER) (test 2.45 mg/dL 0.57-1.25 veub=048) GLUCOSE RANDOM (BEAKER) 107 mg/dL 70-105 (test gjme=359) CALCIUM (BEAKER) (test 8.6 mg/dL 8.4-10.2 dyso=383) EGFR (BEAKER) (test 24 mL/min/1.73 sq m ESTIMATED GFR IS NOT hara=6505) ACCURATE CREATININE CLEARANCE IN PREDICTING GLOMERULAR FILTRATION RATE. ESTIMATED GFR IS NOT APPLICABLE FOR DIALYSIS PATIENTS. [id number] 17:43:00 Test Item Value Reference Range Comments PHOSPHORUS (BEAKER) (test xzrs=251) 4.8 mg/dL 2.3-4.7 [id number] 17:43:00 Test Item Value Reference Range Comments MAGNESIUM (BEAKER) (test szpz=486) 2.4 mg/dL 1.6-2.6 [id number] 17:34:00 Test Item Value Reference Range Comments PARTIAL THROMBOPLASTIN TIME (BEAKER) (test 101.4 seconds 22.5-36.0 hppq=487) BLOOD GAS, [id number] 17:23:00 Test Item Value Reference Range Comments PH ARTERIAL (BEAKER) (test ifxu=498) 7.36 7.35-7.45 PCO2 ARTERIAL (BEAKER) (test dzfr=837) 60 mmHg 35-45 PO2 ARTERIAL (BEAKER) (test uiyx=735) 82 mmHg 80-90 O2 SATURATION ARTERIAL (BEAKER) (test pdgc=615) 95.1 % 96.0-97.0 HCO3 ARTERIAL (BEAKER) (test czgt=241) 33 mmol/L 21-29 BASE EXCESS ARTERIAL (BEAKER) (test dzbc=783) 6.0 mmol/L -2.0-3.0 PATIENT TEMPERATURE (BEAKER) (test epdv=9296) 37.4 C FIO2 (BEAKER) (test plsv=1481) 70.0 % GLUCOSE-STAT [id number] 17:20:00 Test Item Value Reference Range Comments GLUCOSE RANDOM (BEAKER) (test zijf=811) 106 mg/dL 70-110 POCT-GLUCOSE [id number] 16:32:00 Test Item Value Reference Range Comments POC-GLUCOSE METER ([facility]) 115 mg/dL 70-110 TESTED AT [address] (test krhr=4969) [place] [address] VANCOMYCIN LEVEL, [id number] 16:10:00 Test Item Value Reference Range Comments VANCOMYCIN TROUGH (AKER) (test wxri=401) 17.0 ug/mL 10.0-20.0 POCT-GLUCOSE [id number] 15:32:00 Test Item Value Reference Range Comments POC-GLUCOSE METER (BEAKER) 119 mg/dL 70-110 TESTED AT [address] (test edpa=1295) [place] [address] TROPONIN [id number] 13:14:00 Test Item Value Reference Range Comments TROPONIN I (BEAKER) (test vwjd=015) 81.57 ng/mL 0.00-0.03 Troponin I (TnI) levels [...] acute neurological disease, and persistent tachyarrhythmia.BASIC METABOLIC [id number] 12:49:00 Test Item Value Reference Range Comments SODIUM (BEAKER) (test 140 meq/L 136-145 qgmj=588) POTASSIUM (BEAKER) (test 3.6 meq/L 3.5-5.1 Specimen slightly wquw=669) hemolyzed CHLORIDE (BEAKER) (test 104 meq/L 98-107 jzbw=033) CO2 (BEAKER) (test 27 meq/L 22-29 opib=236) BLOOD UREA NITROGEN 37 mg/dL 7-21 (BEAKER) (test zqhw=730) CREATININE (BEAKER) (test 2.35 mg/dL 0.57-1.25 Specimen slightly oerh=280) hemolyzed GLUCOSE RANDOM (BEAKER) 192 mg/dL 70-105 (test bemr=781) CALCIUM (BEAKER) (test 8.1 mg/dL 8.4-10.2 gknv=829) EGFR (BEAKER) (test 25 mL/min/1.73 sq m ESTIMATED GFR IS NOT ugzr=8275) ACCURATE CREATININE CLEARANCE IN PREDICTING GLOMERULAR FILTRATION RATE. ESTIMATED GFR IS NOT APPLICABLE FOR DIALYSIS PATIENTS. [id number] 12:46:00 Test Item Value Reference Range Comments MAGNESIUM (BEAKER) (test 2.2 mg/dL 1.6-2.6 Specimen slightly hemolyzed rkfl=133) [id number] 12:46:00 Test Item Value Reference Range Comments PHOSPHORUS (BEAKER) (test 4.6 mg/dL 2.3-4.7 Specimen slightly hemolyzed wzyz=266) POCT-GLUCOSE [id number] 12:16:00 Test Item Value Reference Range Comments POC-GLUCOSE METER (BEAKER) 210 mg/dL 70-110 TESTED AT [address] (test ohpc=4875) [place] [address] POCT-GLUCOSE [id number] 12:16:00 Test Item Value Reference Range Comments POC-GLUCOSE METER (BEAKER) 247 mg/dL 70-110 TESTED AT [address] (test dmdz=7362) [place] [address] POCT-GLUCOSE [id number] 12:16:00 Test Item Value Reference Range Comments POC-GLUCOSE METER (BEAKER) 174 mg/dL 70-110 TESTED AT [address] (test gnie=9658) [place] [address] BLOOD GAS, [id number] 12:14:00 Test Item Value Reference Range Comments PH ARTERIAL (BEAKER) (test jpmx=912) 7.36 7.35-7.45 PCO2 ARTERIAL (BEAKER) (test oiqz=736) 56 mmHg 35-45 PO2 ARTERIAL (BEAKER) (test oqxs=504) 65 mmHg 80-90 O2 SATURATION ARTERIAL (BEAKER) (test cggb=847) 90.4 % 96.0-97.0 HCO3 ARTERIAL (BEAKER) (test lmwg=262) 31 mmol/L 21-29 BASE EXCESS ARTERIAL (BEAKER) (test jahy=528) 4.8 mmol/L -2.0-3.0 PATIENT TEMPERATURE (BEAKER) (test jchm=9867) 38.0 C FIO2 (BEAKER) (test clmb=4541) 60.0 % [id number] 10:58:00 Test Item Value Reference Range Comments PARTIAL THROMBOPLASTIN TIME (BEAKER) (test 99.0 seconds 22.5-36.0 gpou=163) RAD, CHEST, 1 VIEW, NON [id number] 08:30:00Reason for exam:->r/o pleural effusionShould this be [...] No pneumothorax is seen. Signed: Yoshi Martinez [facility] Verified Date/Time: 07/20/2017 08:30:52 Reading Location: [facility] [address] Radiology ReadingRoom BLOOD GAS, [id number] 06 :37:00 Test Item Value Reference Range Comments PH ARTERIAL (BEAKER) (test pvex=503) 7.38 7.35-7.45 PCO2 ARTERIAL (BEAKER) (test gjdp=048) 50 mmHg 35-45 PO2 ARTERIAL (BEAKER) (test bmyn=311) 97 mmHg 80-90 O2 SATURATION ARTERIAL (BEAKER) (test zvul=547) 96.9 % 96.0-97.0 HCO3 ARTERIAL (BEAKER) (test nkjl=986) 28 mmol/L 21-29 BASE EXCESS ARTERIAL (BEAKER) (test duwr=252) 2.7 mmol/L -2.0-3.0 PATIENT TEMPERATURE (BEAKER) (test tjwf=2177) 37.8 C FIO2 (BEAKER) (test sigk=9935) 40.0 % POCT-GLUCOSE [id number] 06:15:00 Test Item Value Reference Range Comments POC-GLUCOSE METER (BEAKER) 114 mg/dL 70-110 TESTED AT [address] (test wvrx=7825) [facility] [address] POCT-GLUCOSE [id number] 06:15:00 Test Item Value Reference Range Comments POC-GLUCOSE METER (BEAKER) 140 mg/dL 70-110 TESTED AT [address] (test fuym=9200) [facility] [address] POCT-GLUCOSE [id number] 05:23:00 Test Item Value Reference Range Comments POC-GLUCOSE METER (BEAKER) 77 mg/dL 70-110 TESTED AT [address] (test giln=0252) [facility] [address] CALCIUM, [id number] 04:34:00 Test Item Value Reference Range Comments CALCIUM IONIZED (BEAKER) (test huzx=196) 1.14 mmol/L 1.12-1.27 PH, BLOOD (BEAKER) (test vuel=1532) 7.34 BLOOD GAS, [id number] 04:32:00 Test Item Value Reference Range Comments PH ARTERIAL (BEAKER) (test kkpk=991) 7.32 7.35-7.45 PCO2 ARTERIAL (BEAKER) (test wjom=072) 60 mmHg 35-45 PO2 ARTERIAL (BEAKER) (test uall=561) 92 mmHg 80-90 O2 SATURATION ARTERIAL (BEAKER) (test drds=625) 95.9 % 96.0-97.0 HCO3 ARTERIAL (BEAKER) (test sadq=606) 30 mmol/L 21-29 BASE EXCESS ARTERIAL (BEAKER) (test ddrb=162) 3.2 mmol/L -2.0-3.0 PATIENT TEMPERATURE (BEAKER) (test mqwl=2267) 37.8 C FIO2 (BEAKER) (test iuws=1592) 40.0 % COMPREHENSIVE METABOLIC [id number] 04:24:00 Test Item Value Reference Range Comments TOTAL PROTEIN (BEAKER) 6.5 gm/dL 6.0-8.3 (test ukqf=910) ALBUMIN (BEAKER) (test 3.4 g/dL 3.5-5.0 ogxr=8988) ALKALINE PHOSPHATASE 47 U/L 40-150 (BEAKER) (test nipx=900) BILIRUBIN TOTAL (BEAKER) 0.8 mg/dL 0.2-1.2 (test jbij=560) SODIUM (BEAKER) (test 142 meq/L 136-145 wxvm=063) POTASSIUM (BEAKER) (test 3.7 meq/L 3.5-5.1 uqbi=929) CHLORIDE (BEAKER) (test 103 meq/L 98-107 znys=698) CO2 (BEAKER) (test 29 meq/L 22-29 kzik=214) BLOOD UREA NITROGEN 34 mg/dL 7-21 (BEAKER) (test cydf=933) CREATININE (BEAKER) (test 2.44 mg/dL 0.57-1.25 bkpu=873) GLUCOSE RANDOM (BEAKER) 128 mg/dL 70-105 (test dtmu=116) CALCIUM (BEAKER) (test 8.7 mg/dL 8.4-10.2 sbhu=876) AST (SGOT) (BEAKER) (test 158 U/L 5-34 gjke=277) ALT (SGPT) (BEAKER) (test 63 U/L 6-55 lnkw=022) EGFR (BEAKER) (test 24 mL/min/1.73 sq m ESTIMATED GFR IS NOT tflv=1338) ACCURATE CREATININE CLEARANCE IN PREDICTING GLOMERULAR FILTRATION RATE. ESTIMATED GFR IS NOT APPLICABLE FOR DIALYSIS PATIENTS. BASIC METABOLIC [id number] 04:24:00 Test Item Value Reference Range Comments SODIUM (BEAKER) (test 142 meq/L 136-145 tesl=162) POTASSIUM (BEAKER) (test 3.7 meq/L 3.5-5.1 mqqo=922) CHLORIDE (BEAKER) (test 103 meq/L 98-107 hick=441) CO2 (BEAKER) (test 29 meq/L 22-29 uqhw=464) BLOOD UREA NITROGEN 34 mg/dL 7-21 (BEAKER) (test oetv=171) CREATININE (BEAKER) (test 2.44 mg/dL 0.57-1.25 euhj=109) GLUCOSE RANDOM (BEAKER) 128 mg/dL 70-105 (test kcrc=758) CALCIUM (BEAKER) (test 8.7 mg/dL 8.4-10.2 fhlq=903) EGFR (BEAKER) (test 24 mL/min/1.73 sq m ESTIMATED GFR IS NOT xtpg=4124) ACCURATE CREATININE CLEARANCE IN PREDICTING GLOMERULAR FILTRATION RATE. ESTIMATED GFR IS NOT APPLICABLE FOR DIALYSIS PATIENTS. [id number] 04:22:00 Test Item Value Reference Range Comments PHOSPHORUS (BEAKER) (test hflf=836) 5.2 mg/dL 2.3-4.7 [id number] 04:22:00 Test Item Value Reference Range Comments MAGNESIUM (BEAKER) (test bbul=451) 2.4 mg/dL 1.6-2.6 HEPATIC FUNCTION [id number] 04:22:00 Test Item Value Reference Range Comments TOTAL PROTEIN (BEAKER) (test zfne=568) 6.5 gm/dL 6.0-8.3 ALBUMIN (BEAKER) (test jxcm=6831) 3.4 g/dL 3.5-5.0 BILIRUBIN TOTAL (BEAKER) (test pdhj=622) 0.8 mg/dL 0.2-1.2 BILIRUBIN DIRECT (BEAKER) (test uucc=536) 0.4 mg/dL 0.1-0.5 ALKALINE PHOSPHATASE (BEAKER) (test xkfp=697) 47 U/L 40-150 AST (SGOT) (BEAKER) (test qxpd=782) 158 U/L 5-34 ALT (SGPT) (BEAKER) (test lqzk=903) 63 U/L 6-55 [id number] 04:12:00 Test Item Value Reference Range Comments PARTIAL THROMBOPLASTIN TIME (BEAKER) (test 36.8 seconds 22.5-36.0 gpig=050) Prior to initiating heparinPOCT-GLUCOSE [id number] 04:05:00 Test Item Value Reference Range Comments POC-GLUCOSE METER (BEAKER) 134 mg/dL 70-110 TESTED AT [address] (test vsul=7431) [facility] [address] POCT-GLUCOSE [id number] 04:05:00 Test Item Value Reference Range Comments POC-GLUCOSE METER (BEAKER) 122 mg/dL 70-110 TESTED AT [facility] [address] (test wzex=1038) [facility] [address] POCT-GLUCOSE [id number] 04:05:00 Test Item Value Reference Range Comments POC-GLUCOSE METER (BEAKER) 201 mg/dL 70-110 TESTED AT [place] [id number] (test bjhy=7232) [facility] [address] CBC W/PLT COUNT & AUTO [id number] 04:02:00 Test Item Value Reference Range Comments WHITE BLOOD CELL COUNT (BEAKER) (test bwjt=875) 13.6 K/ L 3.5-10.5 RED BLOOD CELL COUNT (BEAKER) (test lsqk=534) 3.18 M/ L 3.93-5.22 HEMOGLOBIN (BEAKER) (test urzm=528) 9.7 GM/DL 11.2-15.7 HEMATOCRIT (BEAKER) (test exew=030) 31.0 % 34.1-44.9 MEAN CORPUSCULAR VOLUME (BEAKER) (test offb=503) 97.5 fL 79.4-94.8 MEAN CORPUSCULAR HEMOGLOBIN (BEAKER) (test 30.5 pg 25.6-32.2 fkbu=328) MEAN CORPUSCULAR HEMOGLOBIN CONC (BEAKER) (test 31.3 GM/DL 32.2-35.5 usrm=640) RED CELL DISTRIBUTION WIDTH (BEAKER) (test 13.3 % 11.7-14.4 lfdv=577) PLATELET COUNT (BEAKER) (test zfpa=337) 167 K/CU MM 150-450 MEAN PLATELET VOLUME (BEAKER) (test stkz=751) 11.0 fL 9.4-12.3 NUCLEATED RED BLOOD CELLS (BEAKER) (test 0 /100 WBC 0-0 fnfe=785) NEUTROPHILS RELATIVE PERCENT (BEAKER) (test 85 % xnqw=673) LYMPHOCYTES RELATIVE PERCENT (BEAKER) (test 7 % iprg=682) MONOCYTES RELATIVE PERCENT (BEAKER) (test 7 % ccat=838) EOSINOPHILS RELATIVE PERCENT (BEAKER) (test 0 % syoq=020) BASOPHILS RELATIVE PERCENT (BEAKER) (test 0 % fcrc=789) NEUTROPHILS ABSOLUTE COUNT (BEAKER) (test 11.61 K/ L 1.56-6.13 aums=511) LYMPHOCYTES ABSOLUTE COUNT (BEAKER) (test 0.98 K/ L 1.18-3.74 xtbg=668) MONOCYTES ABSOLUTE COUNT (BEAKER) (test 0.92 K/ L 0.24-0.36 kxry=595) EOSINOPHILS ABSOLUTE COUNT (BEAKER) (test 0.00 K/ L 0.04-0.36 jwgh=878) BASOPHILS ABSOLUTE COUNT (BEAKER) (test 0.02 K/ L 0.01-0.08 dgsz=108) IMMATURE GRANULOCYTES-RELATIVE PERCENT (BEAKER) 1 % 0-1 (test vrca=9597) [id number] 02:01:00 Test Item Value Reference Range Comments PARTIAL THROMBOPLASTIN TIME (BEAKER) (test 32.5 seconds 22.5-36.0 oeaj=949) BLOOD GAS, [id number] 01:09:00 Test Item Value Reference Range Comments PH ARTERIAL (BEAKER) (test rxjb=031) 7.35 7.35-7.45 PCO2 ARTERIAL (BEAKER) (test ocdw=934) 50 mmHg 35-45 PO2 ARTERIAL (BEAKER) (test srpc=038) 86 mmHg 80-90 O2 SATURATION ARTERIAL (BEAKER) (test aaxu=646) 95.3 % 96.0-97.0 HCO3 ARTERIAL (BEAKER) (test pvjh=770) 27 mmol/L 21-29 BASE EXCESS ARTERIAL (BEAKER) (test uowx=086) 1.0 mmol/L -2.0-3.0 PATIENT TEMPERATURE (BEAKER) (test mjet=4258) 38.2 C FIO2 (BEAKER) (test yosy=7641) 40.0 % POCT-GLUCOSE [id number] 01:04:00 Test Item Value Reference Range Comments POC-GLUCOSE METER (BEAKER) 199 mg/dL 70-110 TESTED AT [facility] [address] (test ovhn=2383) [facility] [address] [id number] 00:14:00 Test Item Value Reference Range Comments MAGNESIUM (BEAKER) (test 2.3 mg/dL 1.6-2.6 Specimen slightly hemolyzed pshq=682) [id number] 00:14:00 Test Item Value Reference Range Comments POTASSIUM (BEAKER) (test 3.8 meq/L 3.5-5.1 Specimen slightly hemolyzed zqsu=260) CALCIUM, [id number] 00:11:00 Test Item Value Reference Range Comments CALCIUM IONIZED (BEAKER) (test gsyy=598) 1.06 mmol/L 1.12-1.27 PH, BLOOD (BEAKER) (test cred=2113) 7.35 BLOOD GAS, [id number] 00:11:00 Test Item Value Reference Range Comments PH ARTERIAL (BEAKER) (test ygsp=824) 7.33 7.35-7.45 PCO2 ARTERIAL (BEAKER) (test xptf=782) 53 mmHg 35-45 PO2 ARTERIAL (BEAKER) (test hkqr=099) 58 mmHg 80-90 O2 SATURATION ARTERIAL (BEAKER) (test cdfg=749) 86.1 % 96.0-97.0 HCO3 ARTERIAL (BEAKER) (test udss=029) 27 mmol/L 21-29 BASE EXCESS ARTERIAL (BEAKER) (test mbpp=433) 0.9 mmol/L -2.0-3.0 PATIENT TEMPERATURE (BEAKER) (test pmlw=6598) 38.0 C FIO2 (BEAKER) (test zxno=1879) 40.0 % Post extubation ABGPOCT-GLUCOSE [id number] 23:58:00 Test Item Value Reference Range Comments POC-GLUCOSE METER (BEAKER) 202 mg/dL 70-110 TESTED AT [address] (test hqqx=3046) [place] [id number] POCT-GLUCOSE [id number] 23:58:00 Test Item Value Reference Range Comments POC-GLUCOSE METER (BEAKER) 86 mg/dL 70-110 TESTED AT [address] (test fepx=3271) [facility] [address] BASIC METABOLIC [id number] 22:18:00 Test Item Value Reference Range Comments SODIUM (BEAKER) (test 141 meq/L 136-145 sroe=698) POTASSIUM (BEAKER) (test 3.6 meq/L 3.5-5.1 Specimen slightly xbvw=512) hemolyzed CHLORIDE (BEAKER) (test 105 meq/L 98-107 lsfv=358) CO2 (BEAKER) (test 26 meq/L 22-29 pyvr=757) BLOOD UREA NITROGEN 31 mg/dL 7-21 (BEAKER) (test nchb=833) CREATININE (BEAKER) (test 2.09 mg/dL 0.57-1.25 Specimen slightly rhbr=833) hemolyzed GLUCOSE RANDOM (BEAKER) 81 mg/dL 70-105 (test yhah=395) CALCIUM (BEAKER) (test 8.3 mg/dL 8.4-10.2 wgtu=891) EGFR (BEAKER) (test 28 mL/min/1.73 sq m ESTIMATED GFR IS NOT seez=2041) ACCURATE CREATININE CLEARANCE IN PREDICTING GLOMERULAR FILTRATION RATE. ESTIMATED GFR IS NOT APPLICABLE FOR DIALYSIS PATIENTS. [id number] 22:17:00 Test Item Value Reference Range Comments PHOSPHORUS (BEAKER) (test 5.1 mg/dL 2.3-4.7 Specimen slightly hemolyzed wacq=642) POCT-GLUCOSE [id number] 20:57:00 Test Item Value Reference Range Comments POC-GLUCOSE METER (BEAKER) 90 mg/dL 70-110 TESTED AT [address] (test jrfy=9439) [facility] [address] BLOOD GAS, [id number] 20:52:00 Test Item Value Reference Range Comments PH ARTERIAL (BEAKER) (test klne=417) 7.35 7.35-7.45 PCO2 ARTERIAL (BEAKER) (test brxa=668) 49 mmHg 35-45 PO2 ARTERIAL (BEAKER) (test gtpi=922) 100 mmHg 80-90 O2 SATURATION ARTERIAL (BEAKER) (test vbfb=903) 97.0 % 96.0-97.0 HCO3 ARTERIAL (BEAKER) (test slwk=281) 26 mmol/L 21-29 BASE EXCESS ARTERIAL (BEAKER) (test nmhg=085) 0.3 mmol/L -2.0-3.0 PATIENT TEMPERATURE (BEAKER) (test cbpv=0045) 37.7 C FIO2 (BEAKER) (test cgma=8554) 40.0 % [id number] 18:57:00 Test Item Value Reference Range Comments PARTIAL THROMBOPLASTIN TIME (BEAKER) (test 70.7 seconds 22.5-36.0 rnbk=033) BLOOD GAS, [id number] 16:52:00 Test Item Value Reference Range Comments PH ARTERIAL (BEAKER) (test eucl=117) 7.37 7.35-7.45 PCO2 ARTERIAL (BEAKER) (test zyik=017) 47 mmHg 35-45 PO2 ARTERIAL (BEAKER) (test xdgi=441) 117 mmHg 80-90 O2 SATURATION ARTERIAL (BEAKER) (test togx=277) 98.0 % 96.0-97.0 HCO3 ARTERIAL (BEAKER) (test eaba=316) 26 mmol/L 21-29 BASE EXCESS ARTERIAL (BEAKER) (test zvkx=918) 0.5 mmol/L -2.0-3.0 PATIENT TEMPERATURE (BEAKER) (test gshr=4429) 37.7 C FIO2 (BEAKER) (test mwoy=5713) 60.0 % GLUCOSE-STAT [id number] 16:52:00 Test Item Value Reference Range Comments GLUCOSE RANDOM (BEAKER) (test pxgr=482) 149 mg/dL 70-110 [id number] 16:22:00 Test Item Value Reference Range Comments PARTIAL THROMBOPLASTIN TIME (BEAKER) (test 197.7 seconds 22.5-36.0 zolg=504) PROTHROMBIN TIME/[id number] 16:15:00 Test Item Value Reference Range Comments PROTIME (BEAKER) (test fwus=226) 16.4 seconds 11.7-14.7 INR (BEAKER) (test qmaa=221) 1.3 <=5.9 RECOMMENDED COUMADIN/WARFARIN INR THERAPY RANGESSTANDARD DOSE: 2.0 - 3.0 Includes: PROPHYLAXIS forvenous thrombosis, systemic embolization; TREATMENT for venous thrombosis and/or pulmonary embolus.HIGH RISK: Target INR is 2.5-3.5 for patients with mechanical heart valves.[id number] 16:15:00 Test Item Value Reference Range Comments FIBRINOGEN LEVEL (BEAKER) (test jmrc=519) 303 mg/dl 225-434 [id number] 16:15:00 Test Item Value Reference Range Comments MAGNESIUM (BEAKER) (test 3.0 mg/dL 1.6-2.6 Specimen moderately hemolyzed hvkt=238) [id number] 16:15:00 Test Item Value Reference Range Comments PHOSPHORUS (BEAKER) (test 6.6 mg/dL 2.3-4.7 Specimen moderately hemolyzed cunq=764) BASIC METABOLIC [id number] 16:15:00 Test Item Value Reference Range Comments SODIUM (BEAKER) (test 144 meq/L 136-145 fpoc=897) POTASSIUM (BEAKER) (test 4.1 meq/L 3.5-5.1 Specimen moderately oucv=209) hemolyzed CHLORIDE (BEAKER) (test 106 meq/L 98-107 nkml=411) CO2 (BEAKER) (test 27 meq/L 22-29 dakp=057) BLOOD UREA NITROGEN 30 mg/dL 7-21 (BEAKER) (test furs=308) CREATININE (BEAKER) (test 1.99 mg/dL 0.57-1.25 Specimen moderately bmhk=169) hemolyzed GLUCOSE RANDOM (BEAKER) 165 mg/dL 70-105 (test jsdl=281) CALCIUM (BEAKER) (test 8.6 mg/dL 8.4-10.2 ibxo=298) EGFR (BEAKER) (test 30 mL/min/1.73 sq m ESTIMATED GFR IS NOT odig=9379) ACCURATE CREATININE CLEARANCE IN PREDICTING GLOMERULAR FILTRATION RATE. ESTIMATED GFR IS NOT APPLICABLE FOR DIALYSIS PATIENTS. CBC (HEMOGRAM ONLY)[id number] 16:13:00 Test Item Value Reference Range Comments WHITE BLOOD CELL COUNT (BEAKER) (test ilsk=681) 14.5 K/ L 3.5-10.5 RED BLOOD CELL COUNT (BEAKER) (test agzb=272) 3.55 M/ L 3.93-5.22 HEMOGLOBIN (BEAKER) (test avdz=486) 10.7 GM/DL 11.2-15.7 HEMATOCRIT (BEAKER) (test qwxv=930) 34.9 % 34.1-44.9 MEAN CORPUSCULAR VOLUME (BEAKER) (test neoa=927) 98.3 fL 79.4-94.8 MEAN CORPUSCULAR HEMOGLOBIN (BEAKER) (test 30.1 pg 25.6-32.2 zwky=333) MEAN CORPUSCULAR HEMOGLOBIN CONC (BEAKER) (test 30.7 GM/DL 32.2-35.5 ujzx=898) RED CELL DISTRIBUTION WIDTH (BEAKER) (test 13.3 % 11.7-14.4 rieg=285) PLATELET COUNT (BEAKER) (test nbze=169) 235 K/CU MM 150-450 MEAN PLATELET VOLUME (BEAKER) (test hpev=345) 11.0 fL 9.4-12.3 NUCLEATED RED BLOOD CELLS (BEAKER) (test 0 /100 WBC 0-0 sxai=242) LACTIC ACID, ARTERIAL, WHOLE [id number] 16:12:00 Test Item Value Reference Range Comments LACTATE BLOOD ARTERIAL (2) 2.0 mmol/L 0.5-2.2 Specimen slightly hemolyzed (BEAKER) (test qrzl=0078) Effective 08/06/2015: Units/Reference Range ChangeNew: 0.5-2.2 mmol/L Previous: 5 -20 mg/dLCALCIUM, [id number] 15:54:00 Test Item Value Reference Range Comments CALCIUM IONIZED (BEAKER) (test xvhm=841) 1.14 mmol/L 1.12-1.27 PH, BLOOD (BEAKER) (test fcom=7473) 7.24 SODIUM NA-STAT [id number] 15:54:00 Test Item Value Reference Range Comments SODIUM (BEAKER) (test pbot=369) 143 meq/L 135-148 POTASSIUM-STAT [id number] 15:54:00 Test Item Value Reference Range Comments POTASSIUM (BEAKER) (test hsrd=370) 3.9 meq/L 3.6-5.5 BLOOD GAS, [id number] 15:54:00 Test Item Value Reference Range Comments PH ARTERIAL (BEAKER) (test jstq=674) 7.26 7.35-7.45 PCO2 ARTERIAL (BEAKER) (test btey=812) 69 mmHg 35-45 PO2 ARTERIAL (BEAKER) (test oecr=804) 74 mmHg 80-90 O2 SATURATION ARTERIAL (BEAKER) (test frzz=648) 93.4 % 96.0-97.0 HCO3 ARTERIAL (BEAKER) (test nxea=143) 31 mmol/L 21-29 BASE EXCESS ARTERIAL (BEAKER) (test izpt=916) 2.0 mmol/L -2.0-3.0 PATIENT TEMPERATURE (BEAKER) (test dejd=9200) 35.6 C FIO2 (BEAKER) (test blsl=7213) 50.0 % GLUCOSE-STAT [id number] 15:54:00 Test Item Value Reference Range Comments GLUCOSE RANDOM (BEAKER) (test epad=174) 169 mg/dL 70-110 HGB/HCT (H&H) - STAT [id number] 15:54:00 Test Item Value Reference Range Comments HEMOGLOBIN (STEVAN) (test jlbm=346) 11.7 g/dL 12.0-15.0 HEMATOCRIT (STEVAN) (test gbzj=793) 34.0 % 36.0-45.0 RAD, CHEST, 1 VIEW, NON [id number] 15:49:00Reason for exam:->sp PCI/ intubatedFINAL REPORT TECHNIQUE: [...] [place]ele[place] Verified Date/Time: 07/19/2017 15:49:37 Reading Location: [facility] RadiologyReading Room [id number] 14:13:00 Test Item Value Reference Range Comments ACTIVATED CLOTTING TIME 131 sec TESTED AT [facility] [address] (STEVAN) (test bjgq=604) [facility] [address] TROPONIN [id number] 12:32:00 Test Item Value Reference Range Comments TROPONIN I (STEVAN) (test foqt=012) 119.79 ng/mL 0.00-0.03 Troponin I (TnI) levels [...] and persistent tachyarrhythmia.CREATINE KINASE (CK), TOTAL AND [id number] 12:26:00 Test Item Value Reference Range Comments CREATINE KINASE TOTAL (STEVAN) (test ggat=304) 2405 U/L 29-200 CREATINE KINASE-MB (BEAKER) (test rkrm=248) 65.6 ng/mL 0.0-6.6 CREATINE KINASE-MB INDEX (BEAKER) (test apnn=147) 2.7 % CK-MB Reference Range:<6.7 Normal6.7-10.0 Borderline>10.0 AbnormalPOCT-GLUCOSE [id number] 12:20:00 Test Item Value Reference Range Comments POC-GLUCOSE METER (BEAKER) 183 mg/dL 70-110 TESTED AT [address] (test obee=5462) [place] [address] [id number] 12:03:00 Test Item Value Reference Range Comments MAGNESIUM (BEAKER) (test ayub=970) 2.8 mg/dL 1.6-2.6 [id number] 12:03:00 Test Item Value Reference Range Comments PHOSPHORUS (BEAKER) (test milq=099) 5.3 mg/dL 2.3-4.7 BASIC METABOLIC [id number] 12:03:00 Test Item Value Reference Range Comments SODIUM (BEAKER) (test 143 meq/L 136-145 grxv=814) POTASSIUM (BEAKER) (test 3.8 meq/L 3.5-5.1 jctz=518) CHLORIDE (BEAKER) (test 106 meq/L 98-107 ldue=636) CO2 (BEAKER) (test 27 meq/L 22-29 vxcp=499) BLOOD UREA NITROGEN 29 mg/dL 7-21 (BEAKER) (test tugx=989) CREATININE (BEAKER) (test 1.92 mg/dL 0.57-1.25 plrb=652) GLUCOSE RANDOM (BEAKER) 188 mg/dL 70-105 (test tvuu=533) CALCIUM (BEAKER) (test 8.7 mg/dL 8.4-10.2 nuag=174) EGFR (BEAKER) (test 31 mL/min/1.73 sq m ESTIMATED GFR IS NOT xoyi=1111) ACCURATE CREATININE CLEARANCE IN PREDICTING GLOMERULAR FILTRATION RATE. ESTIMATED GFR IS NOT APPLICABLE FOR DIALYSIS PATIENTS. POCT-GLUCOSE [id number] 11:19:00 Test Item Value Reference Range Comments POC-GLUCOSE METER (BEAKER) 190 mg/dL 70-110 TESTED AT [address] (test txzm=9766) [place] [address] POCT-GLUCOSE [id number] 10:12:00 Test Item Value Reference Range Comments POC-GLUCOSE METER (BEAKER) 197 mg/dL 70-110 TESTED AT [address] (test plrx=5202) [place] [address] POCT-GLUCOSE [id number] 09:21:00 Test Item Value Reference Range Comments POC-GLUCOSE METER (BEAKER) 221 mg/dL 70-110 TESTED AT [address] (test vocw=8732) [place] [address] LACTIC ACID, ARTERIAL, WHOLE [id number] 09:19:00 Test Item Value Reference Range Comments LACTATE BLOOD ARTERIAL (2) (BEAKER) (test 2.4 mmol/L 0.5-2.2 wqzn=9222) Effective 08/06/2015: Units/Reference Range ChangeNew: 0.5-2.2 mmol/L Previous: 5 -20 mg/dLPROTHROMBIN TIME/[id number] 08:44:00 Test Item Value Reference Range Comments PROTIME (BEAKER) (test vcwz=167) 14.4 seconds 11.7-14.7 INR (BEAKER) (test tvqs=551) 1.1 <=5.9 RECOMMENDED COUMADIN/WARFARIN INR THERAPY RANGESSTANDARD DOSE: 2.0 - 3.0 Includes: PROPHYLAXIS forvenous thrombosis, systemic embolization; TREATMENT for venous thrombosis and/or pulmonary embolus.HIGH RISK: Target INR is 2.5-3.5 for patients with mechanical heart valves.[id number] 08:44:00 Test Item Value Reference Range Comments FIBRINOGEN LEVEL (BEAKER) (test nwzo=471) 367 mg/dl 225-434 [id number] 08:44:00 Test Item Value Reference Range Comments PARTIAL THROMBOPLASTIN TIME (BEAKER) (test 30.0 seconds 22.5-36.0 blov=208) POCT-GLUCOSE [id number] 07:52:00 Test Item Value Reference Range Comments POC-GLUCOSE METER (BEAKER) 215 mg/dL 70-110 TESTED AT [address] (test mqky=1611) [place] [address] CT, CHEST, WITHOUT [id number] 07:50:00KEEP PATIENT ON CT TABLE. CALL RADIOLOGIST [...] Verified Date /Time: 07/19/2017 07:50:43 Reading Location: [facility] Diagnostic Imaging Reading Room - [place] [id number] Electronically signed by: LYNNETTE CASTRO MD on 07:50 AMPOCT-GLUCOSE [id number] 07:37:00 Test Item Value Reference Range Comments POC-GLUCOSE METER (BEAKER) 225 mg/dL 70-110 TESTED AT [facility] [address] (test plke=0107) [facility] [address] RAD, CHEST, 1 VIEW, NON [id number] 04:04:00Reason for exam:->v tach/ iabpShould this be [...] MDReport Verified Date/Time: 07/19/2017 04:04:19 Reading Location: [place] [id number] Ortho Consult Reading Room [id number] 03:59:00 Test Item Value Reference Range Comments PHOSPHORUS (BEAKER) (test zdxe=347) 4.4 mg/dL 2.3-4.7 [id number] 03:59:00 Test Item Value Reference Range Comments MAGNESIUM (BEAKER) (test zddc=599) 2.5 mg/dL 1.6-2.6 BASIC METABOLIC [id number] 03:59:00 Test Item Value Reference Range Comments SODIUM (BEAKER) (test 145 meq/L 136-145 njxf=211) POTASSIUM (BEAKER) (test 3.6 meq/L 3.5-5.1 zcpp=929) CHLORIDE (BEAKER) (test 106 meq/L 98-107 ywsi=043) CO2 (BEAKER) (test 25 meq/L 22-29 bqbd=152) BLOOD UREA NITROGEN 28 mg/dL 7-21 (BEAKER) (test ajze=473) CREATININE (BEAKER) (test 1.93 mg/dL 0.57-1.25 qxjl=144) GLUCOSE RANDOM (BEAKER) 216 mg/dL 70-105 (test jzsa=359) CALCIUM (BEAKER) (test 9.0 mg/dL 8.4-10.2 mhpq=897) EGFR (BEAKER) (test 31 mL/min/1.73 sq m ESTIMATED GFR IS NOT etfj=7202) ACCURATE CREATININE CLEARANCE IN PREDICTING GLOMERULAR FILTRATION RATE. ESTIMATED GFR IS NOT APPLICABLE FOR DIALYSIS PATIENTS. B-TYPE NATRIURETIC FACTOR (BNP)2017-07-19 03:10:00 Test Item Value Reference Range Comments B-TYPE NATRIURETIC PEPTIDE (BEAKER) (test 2662 pg/mL 0-100 gagq=442) HEPATIC FUNCTION [id number] 03:04:00 Test Item Value Reference Range Comments TOTAL PROTEIN (BEAKER) (test cefh=360) 6.6 gm/dL 6.0-8.3 ALBUMIN (BEAKER) (test uibe=3743) 3.5 g/dL 3.5-5.0 BILIRUBIN TOTAL (BEAKER) (test nxma=284) 0.4 mg/dL 0.2-1.2 BILIRUBIN DIRECT (BEAKER) (test ducn=585) 0.2 mg/dL 0.1-0.5 ALKALINE PHOSPHATASE (BEAKER) (test czir=823) 57 U/L 40-150 AST (SGOT) (BEAKER) (test bucy=196) 359 U/L 5-34 ALT (SGPT) (BEAKER) (test nkqb=598) 99 U/L 6-55 CREATINE KINASE (CK)2017-07-19 03:04:00 Test Item Value Reference Range Comments CREATINE KINASE TOTAL (BEAKER) (test oljz=424) 2888 U/L 29-200 CBC W/PLT COUNT & AUTO [id number] 02:56:00 Test Item Value Reference Range Comments WHITE BLOOD CELL COUNT (BEAKER) (test wkaf=203) 19.0 K/ L 3.5-10.5 RED BLOOD CELL COUNT (BEAKER) (test hjyg=070) 3.69 M/ L 3.93-5.22 HEMOGLOBIN (BEAKER) (test xqzh=997) 11.2 GM/DL 11.2-15.7 HEMATOCRIT (BEAKER) (test cbqr=773) 35.3 % 34.1-44.9 MEAN CORPUSCULAR VOLUME (BEAKER) (test ulhl=468) 95.7 fL 79.4-94.8 MEAN CORPUSCULAR HEMOGLOBIN (BEAKER) (test 30.4 pg 25.6-32.2 lloe=679) MEAN CORPUSCULAR HEMOGLOBIN CONC (BEAKER) (test 31.7 GM/DL 32.2-35.5 lbbt=343) RED CELL DISTRIBUTION WIDTH (BEAKER) (test 13.1 % 11.7-14.4 tevn=149) PLATELET COUNT (BEAKER) (test ticb=018) 253 K/CU MM 150-450 MEAN PLATELET VOLUME (BEAKER) (test hurr=921) 10.0 fL 9.4-12.3 NUCLEATED RED BLOOD CELLS (BEAKER) (test 0 /100 WBC 0-0 rlqt=298) NEUTROPHILS RELATIVE PERCENT (BEAKER) (test 86 % vueq=385) LYMPHOCYTES RELATIVE PERCENT (BEAKER) (test 6 % jakp=524) MONOCYTES RELATIVE PERCENT (BEAKER) (test 7 % cent=982) EOSINOPHILS RELATIVE PERCENT (BEAKER) (test 0 % fovm=010) BASOPHILS RELATIVE PERCENT (BEAKER) (test 0 % gahu=748) NEUTROPHILS ABSOLUTE COUNT (BEAKER) (test 16.34 K/ L 1.56-6.13 kprg=773) LYMPHOCYTES ABSOLUTE COUNT (BEAKER) (test 1.15 K/ L 1.18-3.74 pkaq=766) MONOCYTES ABSOLUTE COUNT (BEAKER) (test 1.39 K/ L 0.24-0.36 hkrq=050) EOSINOPHILS ABSOLUTE COUNT (BEAKER) (test 0.00 K/ L 0.04-0.36 zbqx=576) BASOPHILS ABSOLUTE COUNT (BEAKER) (test 0.02 K/ L 0.01-0.08 dvgo=916) IMMATURE GRANULOCYTES-RELATIVE PERCENT (BEAKER) 0 % 0-1 (test vsbv=3899) CALCIUM, [id number] 02:49:00 Test Item Value Reference Range Comments CALCIUM IONIZED (BEAKER) (test staa=809) 1.14 mmol/L 1.12-1.27 PH, BLOOD (BEAKER) (test ppze=1255) 7.36 CBC (HEMOGRAM ONLY)2017-07-19 02:48:00 Test Item Value Reference Range Comments WHITE BLOOD CELL COUNT (BEAKER) (test wgig=881) 19.0 K/ L 3.5-10.5 RED BLOOD CELL COUNT (BEAKER) (test limn=111) 3.69 M/ L 3.93-5.22 HEMOGLOBIN (BEAKER) (test zepp=193) 11.2 GM/DL 11.2-15.7 HEMATOCRIT (BEAKER) (test gawm=349) 35.3 % 34.1-44.9 MEAN CORPUSCULAR VOLUME (BEAKER) (test vovz=599) 95.7 fL 79.4-94.8 MEAN CORPUSCULAR HEMOGLOBIN (BEAKER) (test 30.4 pg 25.6-32.2 fids=341) MEAN CORPUSCULAR HEMOGLOBIN CONC (BEAKER) (test 31.7 GM/DL 32.2-35.5 lcgz=644) RED CELL DISTRIBUTION WIDTH (BEAKER) (test 13.1 % 11.7-14.4 yyko=982) PLATELET COUNT (BEAKER) (test iofh=916) 253 K/CU MM 150-450 MEAN PLATELET VOLUME (BEAKER) (test mrkc=778) 10.0 fL 9.4-12.3 NUCLEATED RED BLOOD CELLS (BEAKER) (test 0 /100 WBC 0-0 irmc=508) BLOOD GAS, [id number] 02:48:00 Test Item Value Reference Range Comments PH ARTERIAL (BEAKER) (test flkm=243) 7.35 7.35-7.45 PCO2 ARTERIAL (BEAKER) (test vnyc=182) 55 mmHg 35-45 PO2 ARTERIAL (BEAKER) (test yrqz=153) 73 mmHg 80-90 O2 SATURATION ARTERIAL (BEAKER) (test lbpt=646) 93.3 % 96.0-97.0 HCO3 ARTERIAL (BEAKER) (test urzr=395) 30 mmol/L 21-29 BASE EXCESS ARTERIAL (BEAKER) (test qklr=303) 3.1 mmol/L -2.0-3.0 PATIENT TEMPERATURE (BEAKER) (test bmkh=0903) 37.5 C FIO2 (BEAKER) (test umwr=4590) 40.0 % POCT-GLUCOSE [id number] 02:21:00 Test Item Value Reference Range Comments POC-GLUCOSE METER (BEAKER) 184 mg/dL 70-110 TESTED AT [facility] [address] (test yzkz=8267) [facility] [address] POCT-GLUCOSE [id number] 01:15:00 Test Item Value Reference Range Comments POC-GLUCOSE METER (BEAKER) 173 mg/dL 70-110 TESTED AT [address] (test juso=8127) [facility] [address] [id number] 00:55:00 Test Item Value Reference Range Comments PHOSPHORUS (BEAKER) (test ubxw=269) 3.3 mg/dL 2.3-4.7 [id number] 00:55:00 Test Item Value Reference Range Comments MAGNESIUM (BEAKER) (test wmfo=496) 1.8 mg/dL 1.6-2.6 BASIC METABOLIC [id number] 00:55:00 Test Item Value Reference Range Comments SODIUM (BEAKER) (test 143 meq/L 136-145 xgzt=298) POTASSIUM (BEAKER) (test 3.9 meq/L 3.5-5.1 lafc=597) CHLORIDE (BEAKER) (test 106 meq/L 98-107 suxf=069) CO2 (BEAKER) (test 27 meq/L 22-29 jdlv=921) BLOOD UREA NITROGEN 27 mg/dL 7-21 (BEAKER) (test emaj=032) CREATININE (BEAKER) (test 1.90 mg/dL 0.57-1.25 xlno=882) GLUCOSE RANDOM (BEAKER) 181 mg/dL 70-105 (test ibzb=719) CALCIUM (BEAKER) (test 8.9 mg/dL 8.4-10.2 whsj=268) EGFR (BEAKER) (test 32 mL/min/1.73 sq m ESTIMATED GFR IS NOT ratt=1466) ACCURATE CREATININE CLEARANCE IN PREDICTING GLOMERULAR FILTRATION RATE. ESTIMATED GFR IS NOT APPLICABLE FOR DIALYSIS PATIENTS. POCT-GLUCOSE [id number] 00:11:00 Test Item Value Reference Range Comments POC-GLUCOSE METER (BEAKER) 177 mg/dL 70-110 TESTED AT [address] (test rnrg=6644) [facility] [address] POCT-GLUCOSE [id number] 23:25:00 Test Item Value Reference Range Comments POC-GLUCOSE METER (BEAKER) 206 mg/dL 70-110 TESTED AT [address] (test xawg=7926) [facility] [address] POCT-GLUCOSE [id number] 22:19:00 Test Item Value Reference Range Comments POC-GLUCOSE METER (BEAKER) 243 mg/dL 70-110 TESTED AT [address] (test lwxk=3420) [facility] [address] POCT-GLUCOSE [id number] 21:37:00 Test Item Value Reference Range Comments POC-GLUCOSE METER (BEAKER) 235 mg/dL 70-110 TESTED AT [address] (test amet=0281) [facility] [address] POCT-GLUCOSE [id number] 20:04:00 Test Item Value Reference Range Comments POC-GLUCOSE METER (BEAKER) 216 mg/dL 70-110 TESTED AT [address] (test kszi=8964) [facility] [address] POCT-GLUCOSE [id number] 18:40:00 Test Item Value Reference Range Comments POC-GLUCOSE METER (BEAKER) 271 mg/dL 70-110 TESTED AT [address] (test dhbv=5347) [facility] [address] [id number] 18:32:00 Test Item Value Reference Range Comments MAGNESIUM (BEAKER) (test 1.9 mg/dL 1.6-2.6 Specimen slightly hemolyzed dziv=972) [id number] 18:32:00 Test Item Value Reference Range Comments PHOSPHORUS (BEAKER) (test 3.1 mg/dL 2.3-4.7 Specimen slightly hemolyzed xckl=954) BASIC METABOLIC [id number] 18:32:00 Test Item Value Reference Range Comments SODIUM (BEAKER) (test 142 meq/L 136-145 ngre=367) POTASSIUM (BEAKER) (test 3.9 meq/L 3.5-5.1 Specimen slightly iohi=285) hemolyzed CHLORIDE (BEAKER) (test 107 meq/L 98-107 apqi=946) CO2 (BEAKER) (test 24 meq/L 22-29 urfs=878) BLOOD UREA NITROGEN 22 mg/dL 7-21 (BEAKER) (test tbsg=451) CREATININE (BEAKER) (test 1.55 mg/dL 0.57-1.25 Specimen slightly flum=369) hemolyzed GLUCOSE RANDOM (BEAKER) 242 mg/dL 70-105 (test cnoh=816) CALCIUM (BEAKER) (test 8.8 mg/dL 8.4-10.2 nowv=254) EGFR (BEAKER) (test 40 mL/min/1.73 sq m ESTIMATED GFR IS NOT umrz=7445) ACCURATE CREATININE CLEARANCE IN PREDICTING GLOMERULAR FILTRATION RATE. ESTIMATED GFR IS NOT APPLICABLE FOR DIALYSIS PATIENTS. BLOOD GAS, [id number] 18:24:00 Test Item Value Reference Range Comments PH ARTERIAL (BEAKER) (test njqg=412) 7.34 7.35-7.45 PCO2 ARTERIAL (BEAKER) (test oacf=505) 51 mmHg 35-45 PO2 ARTERIAL (BEAKER) (test nqai=946) 57 mmHg 80-90 O2 SATURATION ARTERIAL (BEAKER) (test turt=010) 87.5 % 96.0-97.0 HCO3 ARTERIAL (BEAKER) (test spwk=769) 27 mmol/L 21-29 BASE EXCESS ARTERIAL (BEAKER) (test drgt=771) 1.0 mmol/L -2.0-3.0 PATIENT TEMPERATURE (BEAKER) (test atqp=7990) 37.2 C FIO2 (BEAKER) (test mjqv=5220) 40.0 % POCT-GLUCOSE [id number] 17:14:00 Test Item Value Reference Range Comments POC-GLUCOSE METER (BEAKER) 299 mg/dL 70-110 TESTED AT [place] [address] [address] (test lyhb=5973) [facility] [address] LACTIC ACID, ARTERIAL, WHOLE [id number] 16:37:00 Test Item Value Reference Range Comments LACTATE BLOOD ARTERIAL (2) 2.9 mmol/L 0.5-2.2 Specimen slightly hemolyzed (BEAKER) (test kluc=0998) Effective 08/06/2015: Units/Reference Range ChangeNew: 0.5-2.2 mmol/L Previous: 5 -20 mg/[id number] 15:45:00 Test Item Value Reference Range Comments GLUCOSE RANDOM (BEAKER) (test ekgf=832) 439 mg/dL 70-105 If last glucose was less than 500, may do bedside glucose instead of serum glucose.POCT-GLUCOSE [id number] 15:21:00 Test Item Value Reference Range Comments POC-GLUCOSE METER (BEAKER) 374 mg/dL 70-110 Notified PAULA BERGER/TESTED AT [facility] (test rpwb=2592) [facility] [address] [facility] [address] [id number] 15:14:00 Test Item Value Reference Range Comments POTASSIUM (BEAKER) (test wxip=578) 4.0 meq/L 3.5-5.1 If last glucose was less than 500, may do bedside glucose instead of serum glucose.URINALYSIS W/ [id number] 15:03:00 Test Item Value Reference Range Comments COLOR (BEAKER) (test vdkf=280) Yellow CLARITY (BEAKER) (test sxop=493) Clear SPECIFIC GRAVITY UA (BEAKER) (test ygqn=568) 1.050 1.001-1.035 PH UA (BEAKER) (test pjvt=798) 5.5 5.0-8.0 PROTEIN UA (BEAKER) (test ohwk=896) 50 mg/dL Negative GLUCOSE UA (BEAKER) (test yekr=671) >1000 mg/dL Negative KETONES UA (BEAKER) (test cutz=601) Negative Negative BILIRUBIN UA (BEAKER) (test ktwb=642) Negative Negative BLOOD UA (BEAKER) (test vggo=280) Moderate Negative NITRITE UA (BEAKER) (test irsc=761) Negative Negative LEUKOCYTE ESTERASE UA (BEAKER) (test tsxo=324) Negative Negative UROBILINOGEN UA (BEAKER) (test wvzf=185) 0.2 mg/dL 0.2-1.0 RBC UA (BEAKER) (test ndyl=570) 16 /HPF WBC UA (BEAKER) (test omma=665) 11 /HPF BACTERIA (BEAKER) (test gcje=644) Rare MUCUS (BEAKER) (test khel=2834) Rare SQUAMOUS EPITHELIAL (BEAKER) (test bevk=409) 1 /HPF SOURCE(BEAKER) (test dfmy=2292) U/S, RENAL, [id number] 14:36:00Reason for exam:->acute renal failure , hydronephrosisShould [...] MDReport Verified Date/Time: 07/18/2017 14:36:40 Reading Location: [address] Ultrasound Reading Room Electronically signed by: VIRGINIA DIAZ M.D. on 02:36 PMT4, [id number] 14:31:00 Test Item Value Reference Range Comments FREE T4 (BEAKER) (test uimq=845) 1.13 ng/dL 0.70-1.48 BLOOD GAS, [id number] 14:01:00 Test Item Value Reference Range Comments PH ARTERIAL (BEAKER) (test cdrq=261) 7.42 7.35-7.45 PCO2 ARTERIAL (BEAKER) (test giua=137) 42 mmHg 35-45 PO2 ARTERIAL (BEAKER) (test fdyx=598) 66 mmHg 80-90 O2 SATURATION ARTERIAL (BEAKER) (test fgzz=407) 93.5 % 96.0-97.0 HCO3 ARTERIAL (BEAKER) (test ylzv=330) 27 mmol/L 21-29 BASE EXCESS ARTERIAL (BEAKER) (test dzin=676) 2.1 mmol/L -2.0-3.0 PATIENT TEMPERATURE (BEAKER) (test ullz=4848) 36.9 C FIO2 (BEAKER) (test qtem=5271) 40.0 % HEMOGLOBIN [id number] 13:57:00 Test Item Value Reference Range Comments HEMOGLOBIN A1C (BEAKER) (test mrev=509) 9.8 % 4.3-6.1 SODIUM, RANDOM [id number] 13:49:00 Test Item Value Reference Range Comments SODIUM URINE (BEAKER) (test qhou=408) 22 meq/L Reference Range: No NormalsTSH/FREE T4 IF [id number] 13:49:00 Test Item Value Reference Range Comments THYROID STIMULATING HORMONE (BEAKER) (test 0.27 uIU/mL 0.35-4.94 kyrb=446) POCT-GLUCOSE [id number] 13:47:00 Test Item Value Reference Range Comments POC-GLUCOSE METER (BEAKER) 398 mg/dL 70-110 TESTED AT [facility] [address] (test fvnr=2093) [facility] [address] CREATININE, RANDOM [id number] 13:43:00 Test Item Value Reference Range Comments CREATININE URINE (BEAKER) (test pqkc=421) 85.4 mg/dL Reference Range: No NormalsPROTEIN, RANDOM [id number] 13:43:00 Test Item Value Reference Range Comments PROTEIN, URINE (BEAKER) (test vtxn=2681) 75 mg/dL 0-14 B-TYPE NATRIURETIC FACTOR (BNP)2017-07-18 13:17:00 Test Item Value Reference Range Comments B-TYPE NATRIURETIC PEPTIDE (BEAKER) (test 1847 pg/mL 0-100 rfey=246) BASIC METABOLIC [id number] 13:13:00 Test Item Value Reference Range Comments SODIUM (BEAKER) (test 138 meq/L 136-145 hslr=509) POTASSIUM (BEAKER) (test 4.8 meq/L 3.5-5.1 qbgq=549) CHLORIDE (BEAKER) (test 101 meq/L 98-107 psjk=013) CO2 (BEAKER) (test 26 meq/L 22-29 xfha=187) BLOOD UREA NITROGEN 21 mg/dL 7-21 (BEAKER) (test runt=146) CREATININE (BEAKER) (test 1.62 mg/dL 0.57-1.25 nyis=043) GLUCOSE RANDOM (BEAKER) 527 mg/dL 70-105 (test hppi=311) CALCIUM (BEAKER) (test 8.9 mg/dL 8.4-10.2 dyav=964) EGFR (BEAKER) (test 38 mL/min/1.73 sq m ESTIMATED GFR IS NOT rdcj=2109) ACCURATE CREATININE CLEARANCE IN PREDICTING GLOMERULAR FILTRATION RATE. ESTIMATED GFR IS NOT APPLICABLE FOR DIALYSIS PATIENTS. If last glucose was less than 500, may do bedside glucose instead of serum glucose.[id number] 13:12:00 Test Item Value Reference Range Comments MAGNESIUM (BEAKER) (test wqgf=976) 1.9 mg/dL 1.6-2.6 If last glucose was less than 500, may do bedside glucose instead of serum glucose.[id number] 13:12:00 Test Item Value Reference Range Comments LIPASE (BEAKER) (test jpne=542) 106 U/L 8-78 If last glucose was less than 500, may do bedside glucose instead of serum glucose.[id number] 13:11:00 Test Item Value Reference Range Comments PHOSPHORUS (BEAKER) (test ecuh=316) 3.3 mg/dL 2.3-4.7 If last glucose was less than 500, may do bedside glucose instead of serum glucose.POCT-GLUCOSE [id number] 12:49:00 Test Item Value Reference Range Comments POC-GLUCOSE METER (BEAKER) 498 mg/dL 70-110 Notified PAULA BERGER/TESTED AT [facility] (test dbww=5570) [address] [facility] [id number] LACTIC ACID, VENOUS, WHOLE [id number] 12:11:00 Test Item Value Reference Range Comments LACTATE BLOOD VENOUS (2) (BEAKER) (test 3.8 mmol/L 0.5-2.2 lwdv=8294) Effective 08/06/2015: Units/Reference Range ChangeNew: 0.5-2.2 mmol/L Previous: 5 -20 mg/[id number] 12:10:00 Test Item Value Reference Range Comments PROCALCITONIN (BEAKER) (test tyfs=7142) 3.80 ng/mL <0.05 SEPSIS RISK (ng/mL)Low: 0.05-0.50Intermediate: 0.51-2.00High: & gt;=2.01CBC W/PLT COUNT & AUTO [id number] 12:10:00 Test Item Value Reference Range Comments WHITE BLOOD CELL COUNT (BEAKER) (test nvcv=058) 11.2 K/ L 3.5-10.5 RED BLOOD CELL COUNT (BEAKER) (test nfdq=572) 3.98 M/ L 3.93-5.22 HEMOGLOBIN (BEAKER) (test ekcm=246) 12.0 GM/DL 11.2-15.7 HEMATOCRIT (BEAKER) (test mpdf=521) 38.5 % 34.1-44.9 MEAN CORPUSCULAR VOLUME (BEAKER) (test vuet=904) 96.7 fL 79.4-94.8 MEAN CORPUSCULAR HEMOGLOBIN (BEAKER) (test 30.2 pg 25.6-32.2 misn=515) MEAN CORPUSCULAR HEMOGLOBIN CONC (BEAKER) (test 31.2 GM/DL 32.2-35.5 htvv=238) RED CELL DISTRIBUTION WIDTH (BEAKER) (test 13.1 % 11.7-14.4 jyqi=155) PLATELET COUNT (BEAKER) (test qqmb=940) 222 K/CU MM 150-450 MEAN PLATELET VOLUME (BEAKER) (test evch=783) 10.2 fL 9.4-12.3 NUCLEATED RED BLOOD CELLS (BEAKER) (test 0 /100 WBC 0-0 khgm=419) NEUTROPHILS RELATIVE PERCENT (BEAKER) (test 96 % ctkc=034) LYMPHOCYTES RELATIVE PERCENT (BEAKER) (test 2 % nfdh=932) MONOCYTES RELATIVE PERCENT (BEAKER) (test 2 % zmjf=353) EOSINOPHILS RELATIVE PERCENT (BEAKER) (test 0 % jyon=759) BASOPHILS RELATIVE PERCENT (BEAKER) (test 0 % gbyx=387) NEUTROPHILS ABSOLUTE COUNT (BEAKER) (test 10.72 K/ L 1.56-6.13 gffw=123) LYMPHOCYTES ABSOLUTE COUNT (BEAKER) (test 0.24 K/ L 1.18-3.74 wuut=024) MONOCYTES ABSOLUTE COUNT (BEAKER) (test 0.22 K/ L 0.24-0.36 acwa=818) EOSINOPHILS ABSOLUTE COUNT (BEAKER) (test 0.00 K/ L 0.04-0.36 vmsx=244) BASOPHILS ABSOLUTE COUNT (BEAKER) (test 0.01 K/ L 0.01-0.08 dxiq=138) IMMATURE GRANULOCYTES-RELATIVE PERCENT (BEAKER) 0 % 0-1 (test uqpt=7219) BASIC METABOLIC [id number] 11:35:00 Test Item Value Reference Range Comments SODIUM (BEAKER) (test 136 meq/L 136-145 jsmz=199) POTASSIUM (BEAKER) (test 4.8 meq/L 3.5-5.1 kkbk=407) CHLORIDE (BEAKER) (test 99 meq/L 98-107 ixrz=206) CO2 (BEAKER) (test 25 meq/L 22-29 xrur=439) BLOOD UREA NITROGEN 19 mg/dL 7-21 (BEAKER) (test xuxt=196) CREATININE (BEAKER) (test 1.61 mg/dL 0.57-1.25 ncay=497) GLUCOSE RANDOM (BEAKER) 568 mg/dL 70-105 (test pqvv=215) CALCIUM (BEAKER) (test 8.9 mg/dL 8.4-10.2 kkrj=368) EGFR (BEAKER) (test 38 mL/min/1.73 sq m ESTIMATED GFR IS NOT upbn=0810) ACCURATE CREATININE CLEARANCE IN PREDICTING GLOMERULAR FILTRATION RATE. ESTIMATED GFR IS NOT APPLICABLE FOR DIALYSIS PATIENTS. BLOOD GAS, [id number] 10:57:00 Test Item Value Reference Range Comments PH ARTERIAL (BEAKER) (test roxn=903) 7.36 7.35-7.45 PCO2 ARTERIAL (BEAKER) (test hzva=340) 47 mmHg 35-45 PO2 ARTERIAL (BEAKER) (test igmw=919) 78 mmHg 80-90 O2 SATURATION ARTERIAL (BEAKER) (test xzhk=924) 95.0 % 96.0-97.0 HCO3 ARTERIAL (BEAKER) (test vusy=579) 26 mmol/L 21-29 BASE EXCESS ARTERIAL (BEAKER) (test apzj=774) 0.4 mmol/L -2.0-3.0 PATIENT TEMPERATURE (BEAKER) (test mpjh=5829) 37.0 C FIO2 (BEAKER) (test rqnz=7110) 100.0 % RAD, CHEST, 1 VIEW, NON [id number] 10:38:00Reason for exam:->IABP Should this be performed [...] Reading Location: [facility] [address] Radiology Reading Room CBC W/PLT COUNT & AUTO [id number] 10: 01:00 Test Item Value Reference Range Comments WHITE BLOOD CELL COUNT (BEAKER) (test mgnv=774) 12.8 K/ L 3.5-10.5 RED BLOOD CELL COUNT (BEAKER) (test syuf=915) 3.95 M/ L 3.93-5.22 HEMOGLOBIN (BEAKER) (test ptxr=448) 11.9 GM/DL 11.2-15.7 HEMATOCRIT (BEAKER) (test malm=647) 38.3 % 34.1-44.9 MEAN CORPUSCULAR VOLUME (BEAKER) (test hbpo=811) 97.0 fL 79.4-94.8 MEAN CORPUSCULAR HEMOGLOBIN (BEAKER) (test 30.1 pg 25.6-32.2 rvkm=507) MEAN CORPUSCULAR HEMOGLOBIN CONC (BEAKER) (test 31.1 GM/DL 32.2-35.5 jfay=148) RED CELL DISTRIBUTION WIDTH (BEAKER) (test 13.1 % 11.7-14.4 iwpa=944) PLATELET COUNT (BEAKER) (test rfbb=528) 231 K/CU MM 150-450 MEAN PLATELET VOLUME (BEAKER) (test drrz=899) 10.4 fL 9.4-12.3 NUCLEATED RED BLOOD CELLS (BEAKER) (test 0 /100 WBC 0-0 aasb=081) NEUTROPHILS RELATIVE PERCENT (BEAKER) (test 91 % mdrl=830) LYMPHOCYTES RELATIVE PERCENT (BEAKER) (test 4 % xcsn=790) MONOCYTES RELATIVE PERCENT (BEAKER) (test 4 % jxct=736) EOSINOPHILS RELATIVE PERCENT (BEAKER) (test 0 % weyi=418) BASOPHILS RELATIVE PERCENT (BEAKER) (test 0 % igoe=113) NEUTROPHILS ABSOLUTE COUNT (BEAKER) (test 11.66 K/ L 1.56-6.13 xwvd=690) LYMPHOCYTES ABSOLUTE COUNT (BEAKER) (test 0.53 K/ L 1.18-3.74 rltn=774) MONOCYTES ABSOLUTE COUNT (BEAKER) (test 0.49 K/ L 0.24-0.36 fvwn=999) EOSINOPHILS ABSOLUTE COUNT (BEAKER) (test 0.01 K/ L 0.04-0.36 ljho=861) BASOPHILS ABSOLUTE COUNT (BEAKER) (test 0.03 K/ L 0.01-0.08 npoi=639) IMMATURE GRANULOCYTES-RELATIVE PERCENT (BEAKER) 0 % 0-1 (test lsaq=4835) COMPREHENSIVE METABOLIC [id number] 09:38:00 Test Item Value Reference Range Comments TOTAL PROTEIN (BEAKER) 6.7 gm/dL 6.0-8.3 Specimen slightly (test xuao=844) hemolyzed ALBUMIN (BEAKER) (test 3.5 g/dL 3.5-5.0 Specimen slightly uyqg=0324) hemolyzed ALKALINE PHOSPHATASE 70 U/L 40-150 (BEAKER) (test gmnt=990) BILIRUBIN TOTAL (BEAKER) 0.6 mg/dL 0.2-1.2 Specimen slightly (test omzm=449) hemolyzed SODIUM (BEAKER) (test 134 meq/L 136-145 vxrx=945) POTASSIUM (BEAKER) (test 4.7 meq/L 3.5-5.1 Specimen slightly cwpy=261) hemolyzed CHLORIDE (BEAKER) (test 98 meq/L 98-107 bnqs=681) CO2 (BEAKER) (test 25 meq/L 22-29 nstb=555) BLOOD UREA NITROGEN 19 mg/dL 7-21 (BEAKER) (test hmjw=239) CREATININE (BEAKER) (test 1.57 mg/dL 0.57-1.25 Specimen slightly kibf=357) hemolyzed GLUCOSE RANDOM (BEAKER) 652 mg/dL 70-105 (test ttxj=199) CALCIUM (BEAKER) (test 8.7 mg/dL 8.4-10.2 llik=226) AST (SGOT) (BEAKER) (test 343 U/L 5-34 Specimen slightly rjbt=636) hemolyzed ALT (SGPT) (BEAKER) (test 89 U/L 6-55 Specimen slightly fmyj=066) hemolyzed EGFR (BEAKER) (test 39 mL/min/1.73 sq m ESTIMATED GFR IS NOT osxx=1245) ACCURATE CREATININE CLEARANCE IN PREDICTING GLOMERULAR FILTRATION RATE. ESTIMATED GFR IS NOT APPLICABLE FOR DIALYSIS PATIENTS. [id number] 09:09:00 Test Item Value Reference Range Comments ACTIVATED CLOTTING TIME 252 sec TESTED AT [facility] [address] (BEAKER) (test tukl=725) [place] [address] PROTHROMBIN [id number] 09:01:00 Test Item Value Reference Range Comments PROTIME (BEAKER) (test fcgb=631) 18.3 seconds 11.7-14.7 INR (BEAKER) (test uxgo=192) 1.5 <=5.9 RECOMMENDED COUMADIN/WARFARIN INR THERAPY RANGESSTANDARD DOSE: 2.0 - 3.0 Includes: PROPHYLAXIS forvenous thrombosis, systemic embolization; TREATMENT for venous thrombosis and/or pulmonary embolus.HIGH RISK: Target INR is 2.5-3.5 for patients with mechanical heart valves.[id number] 08:09:00 Test Item Value Reference Range Comments ACTIVATED CLOTTING TIME 213 sec TESTED AT [address] [facility] (test wgap=519) [place] [address] [id number] 08:09:00 Test Item Value Reference Range Comments ACTIVATED CLOTTING TIME 263 sec TESTED AT [address] ([facility]) (test cqlz=070) [place] [address] BLOOD GAS, [id number] 07:50:00 Test Item Value Reference Range Comments PH ARTERIAL (BEAKER) (test pmao=662) 7.20 7.35-7.45 PCO2 ARTERIAL (BEAKER) (test xkqw=724) 65 mmHg 35-45 PO2 ARTERIAL (BEAKER) (test oilr=066) 133 mmHg 80-90 O2 SATURATION ARTERIAL (BEAKER) (test wkau=481) 98.1 % 96.0-97.0 HCO3 ARTERIAL (BEAKER) (test cinn=841) 25 mmol/L 21-29 BASE EXCESS ARTERIAL (BEAKER) (test ffmt=677) -4.3 mmol/L -2.0-3.0 PATIENT TEMPERATURE (BEAKER) (test fnda=6401) 36.0 C FIO2 (BEAKER) (test umpd=5048) 100.0 % POCT-GLUCOSE [id number] 12:27:00 Test Item Value Reference Range Comments POC-GLUCOSE METER (BEAKER) 156 mg/dL 70-110 TESTED AT [address] (test khsb=7840) [place] [address] BASIC METABOLIC [id number] 05:45:00 Test Item Value Reference Range Comments SODIUM (BEAKER) (test 141 meq/L 136-145 jbzd=437) POTASSIUM (BEAKER) (test 4.1 meq/L 3.5-5.1 kdxc=304) CHLORIDE (BEAKER) (test 106 meq/L 98-107 sxsw=923) CO2 (BEAKER) (test 26 meq/L 22-29 qizq=277) BLOOD UREA NITROGEN 11 mg/dL 7-21 (BEAKER) (test hjsf=299) CREATININE (BEAKER) (test 0.83 mg/dL 0.57-1.25 lidn=811) GLUCOSE RANDOM (BEAKER) 139 mg/dL 70-105 (test ifrv=251) CALCIUM (BEAKER) (test 8.5 mg/dL 8.4-10.2 swzl=711) EGFR (BEAKER) (test 83 mL/min/1.73 sq m ESTIMATED GFR IS NOT mwcp=1423) ACCURATE CREATININE CLEARANCE IN PREDICTING GLOMERULAR FILTRATION RATE. ESTIMATED GFR IS NOT APPLICABLE FOR DIALYSIS PATIENTS. POCT-GLUCOSE [id number] 21:10:00 Test Item Value Reference Range Comments POC-GLUCOSE METER (BEAKER) 103 mg/dL 70-110 TESTED AT [address] (test pxfu=5436) [place] [address] POCT-GLUCOSE [id number] 17:51:00 Test Item Value Reference Range Comments POC-GLUCOSE METER (BEAKER) 138 mg/dL 70-110 TESTED AT [address] (test zqqo=2120) [place] [address] POCT-GLUCOSE [id number] 12:45:00 Test Item Value Reference Range Comments POC-GLUCOSE METER (BEAKER) 294 mg/dL 70-110 TESTED AT [address] (test uofi=4552) [place] [address] CBC WITH PLATELET COUNT + MANUAL [id number] 07:04:00 Test Item Value Reference Range Comments WHITE BLOOD CELL COUNT (BEAKER) (test xwiu=357) 10.7 K/ L 4.0-10.0 RED BLOOD CELL COUNT (BEAKER) (test rvqf=885) 3.91 M/ L 4.00-5.00 HEMOGLOBIN (BEAKER) (test rigl=802) 12.9 GM/DL 12.0-15.0 HEMATOCRIT (BEAKER) (test bueg=562) 39.0 % 36.0-45.0 MEAN CORPUSCULAR VOLUME (BEAKER) (test azkw=297) 99.6 fL 82.0-99.0 MEAN CORPUSCULAR HEMOGLOBIN (BEAKER) (test 32.9 pg 27.0-33.0 giqa=926) MEAN CORPUSCULAR HEMOGLOBIN CONC (BEAKER) (test 33.0 GM/DL 32.0-36.0 vfbo=021) RED CELL DISTRIBUTION WIDTH (BEAKER) (test 12.8 % 10.3-14.2 zeiv=972) PLATELET COUNT (BEAKER) (test zrrd=461) 251 K/CU MM 150-430 MEAN PLATELET VOLUME (BEAKER) (test tjds=046) 8.1 fL 6.5-10.5 NUCLEATED RED BLOOD CELLS (BEAKER) (test 0 /100 WBC 0-0 dxxy=939) NEUTROPHILS RELATIVE PERCENT (BEAKER) (test 80 % rkpd=250) LYMPHOCYTES RELATIVE PERCENT (BEAKER) (test 14 % agce=319) MONOCYTES RELATIVE PERCENT (BEAKER) (test 6 % nztu=740) EOSINOPHILS RELATIVE PERCENT (BEAKER) (test 0 % ibdo=905) BASOPHILS RELATIVE PERCENT (BEAKER) (test 0 % phwi=762) NEUTROPHILS ABSOLUTE COUNT (BEAKER) (test 8.55 K/ L 1.80-8.00 mbao=165) LYMPHOCYTES ABSOLUTE COUNT (BEAKER) (test 1.46 K/ L 1.48-4.50 pzvt=093) MONOCYTES ABSOLUTE COUNT (BEAKER) (test 0.60 K/ L 0.00-1.30 zhxy=334) EOSINOPHILS ABSOLUTE COUNT (BEAKER) (test 0.05 K/ L 0.00-0.50 hhmt=002) BASOPHILS ABSOLUTE COUNT (BEAKER) (test 0.02 K/ L 0.00-0.20 jbkj=897) 0.00(MANUAL DIFFERENTIAL)[id number] 07:04:00 Test Item Value Reference Range Comments TOTAL COUNTED (BEAKER) (test sjdz=8844) PLT MORPHOLOGY (BEAKER) (test pbjp=917) Normal RBC MORPHOLOGY (BEAKER) (test auxw=884) Normal ATYPICAL LYMPHS(BEAKER) (test wuak=9895) Present BASIC METABOLIC [id number] 05:05:00 Test Item Value Reference Range Comments SODIUM (BEAKER) (test 140 meq/L 136-145 pzpx=316) POTASSIUM (BEAKER) (test 3.8 meq/L 3.5-5.1 zrha=418) CHLORIDE (BEAKER) (test 107 meq/L 98-107 xzly=066) CO2 (BEAKER) (test 26 meq/L 22-29 goyw=473) BLOOD UREA NITROGEN 13 mg/dL 7-21 (BEAKER) (test txub=870) CREATININE (BEAKER) (test 0.80 mg/dL 0.57-1.25 rblc=620) GLUCOSE RANDOM (BEAKER) 177 mg/dL 70-105 (test ewtt=178) CALCIUM (BEAKER) (test 8.3 mg/dL 8.4-10.2 dcyx=606) EGFR (BEAKER) (test 86 mL/min/1.73 sq m ESTIMATED GFR IS NOT kpqt=7967) ACCURATE CREATININE CLEARANCE IN PREDICTING GLOMERULAR FILTRATION RATE. ESTIMATED GFR IS NOT APPLICABLE FOR DIALYSIS PATIENTS. PT/[id number] 04:48:00 Test Item Value Reference Range Comments PROTIME (BEAKER) (test venk=500) 13.0 seconds 11.7-14.7 INR (BEAKER) (test fsaw=681) 1.0 <=5.9 PARTIAL THROMBOPLASTIN TIME (BEAKER) (test 31.8 seconds 22.5-36.0 ybbf=683) RECOMMENDED COUMADIN/WARFARIN INR THERAPY RANGESSTANDARD DOSE: 2.0 - 3.0 Includes: PROPHYLAXIS forvenous thrombosis, systemic embolization; TREATMENT for venous thrombosis and/or pulmonary embolus.HIGH RISK: Target INR is 2.5-3.5 for patients with mechanical heart valves.POCT-GLUCOSE [id number] 22:11:00 Test Item Value Reference Range Comments POC-GLUCOSE METER (BEAKER) 200 mg/dL 70-110 TESTED AT [facility] [address] (test dxud=8923) [facility] [address] POCT-GLUCOSE [id number] 17:13:00 Test Item Value Reference Range Comments POC-GLUCOSE METER (BEAKER) 225 mg/dL 70-110 TESTED AT [facility] [address] (test srax=9173) [facility] [address] POCT-GLUCOSE [id number] 12:22:00 Test Item Value Reference Range Comments POC-GLUCOSE METER (BEAKER) 309 mg/dL 70-110 Notified PAULA BERGER/TESTED AT [facility] (test saqi=1226) [address] [facility] [address] URINALYSIS W/ [id number] 12:09:00 Test Item Value Reference Range Comments COLOR (BEAKER) (test nhsv=832) Yellow CLARITY (BEAKER) (test hmtg=182) Clear SPECIFIC GRAVITY UA (BEAKER) (test xkku=026) 1.035 1.001-1.035 PH UA (BEAKER) (test ndsy=338) 5.0 5.0-8.0 PROTEIN UA (BEAKER) (test gobu=549) Negative Negative GLUCOSE UA (BEAKER) (test henf=569) 150 mg/dL Negative KETONES UA (BEAKER) (test geap=156) Negative Negative BILIRUBIN UA (BEAKER) (test xryf=041) Negative Negative BLOOD UA (BEAKER) (test alyv=591) Small Negative NITRITE UA (BEAKER) (test sybp=834) Negative Negative LEUKOCYTE ESTERASE UA (BEAKER) (test opfd=166) Negative Negative UROBILINOGEN UA (BEAKER) (test qtvd=450) 0.2 mg/dL 0.2-1.0 RBC UA (BEAKER) (test tzwi=657) 6 /HPF WBC UA (BEAKER) (test qxkh=751) 1 /HPF MUCUS (BEAKER) (test ednk=4504) Rare SQUAMOUS EPITHELIAL (BEAKER) (test nrlx=104) 6 /HPF HYALINE CASTS (BEAKER) (test dyij=863) 2 /LPF SOURCE(BEAKER) (test bggx=4615) POCT-GLUCOSE [id number] 07:58:00 Test Item Value Reference Range Comments POC-GLUCOSE METER (BEAKER) 236 mg/dL 70-110 TESTED AT [place] [address] [address] (test knal=4516) [facility] [address] BASIC METABOLIC [id number] 04:10:00 Test Item Value Reference Range Comments SODIUM (BEAKER) (test 138 meq/L 136-145 hvlv=083) POTASSIUM (BEAKER) (test 4.2 meq/L 3.5-5.1 vurq=806) CHLORIDE (BEAKER) (test 107 meq/L 98-107 xhkn=865) CO2 (BEAKER) (test 22 meq/L 22-29 qudf=322) BLOOD UREA NITROGEN 20 mg/dL 7-21 (BEAKER) (test xtvf=966) CREATININE (BEAKER) (test 1.00 mg/dL 0.57-1.25 ryyz=352) GLUCOSE RANDOM (BEAKER) 246 mg/dL 70-105 (test ktpm=036) CALCIUM (BEAKER) (test 8.8 mg/dL 8.4-10.2 aipw=429) EGFR (BEAKER) (test 67 mL/min/1.73 sq m ESTIMATED GFR IS NOT sook=5975) ACCURATE CREATININE CLEARANCE IN PREDICTING GLOMERULAR FILTRATION RATE. ESTIMATED GFR IS NOT APPLICABLE FOR DIALYSIS PATIENTS. [id number] 04:03:00 Test Item Value Reference Range Comments PROTIME (BEAKER) (test jsjy=910) 12.8 seconds 11.7-14.7 INR (BEAKER) (test iwnq=029) 1.0 <=5.9 PARTIAL THROMBOPLASTIN TIME (BEAKER) (test 29.6 seconds 22.5-36.0 xayt=308) RECOMMENDED COUMADIN/WARFARIN INR THERAPY RANGESSTANDARD DOSE: 2.0 - 3.0 Includes: PROPHYLAXIS forvenous thrombosis, systemic embolization; TREATMENT for venous thrombosis and/or pulmonary embolus.HIGH RISK: Target INR is 2.5-3.5 for patients with mechanical heart valves.CBC WITH PLATELET COUNT + MANUAL [id number] 03:58:00 Test Item Value Reference Range Comments WHITE BLOOD CELL COUNT (BEAKER) (test ndcs=563) 14.3 K/ L 4.0-10.0 RED BLOOD CELL COUNT (BEAKER) (test kfot=690) 4.03 M/ L 4.00-5.00 HEMOGLOBIN (BEAKER) (test nsmx=061) 13.1 GM/DL 12.0-15.0 HEMATOCRIT (BEAKER) (test vzyc=427) 39.7 % 36.0-45.0 MEAN CORPUSCULAR VOLUME (BEAKER) (test rwea=323) 98.5 fL 82.0-99.0 MEAN CORPUSCULAR HEMOGLOBIN (BEAKER) (test 32.6 pg 27.0-33.0 jgse=097) MEAN CORPUSCULAR HEMOGLOBIN CONC (BEAKER) (test 33.1 GM/DL 32.0-36.0 gjrl=277) RED CELL DISTRIBUTION WIDTH (BEAKER) (test 12.9 % 10.3-14.2 eazc=501) PLATELET COUNT (BEAKER) (test awje=297) 271 K/CU MM 150-430 MEAN PLATELET VOLUME (BEAKER) (test rblg=967) 7.7 fL 6.5-10.5 NUCLEATED RED BLOOD CELLS (BEAKER) (test 0 /100 WBC 0-0 jgno=328) NEUTROPHILS RELATIVE PERCENT (BEAKER) (test 87 % kpxb=814) LYMPHOCYTES RELATIVE PERCENT (BEAKER) (test 7 % fffv=081) MONOCYTES RELATIVE PERCENT (BEAKER) (test 6 % jubf=391) EOSINOPHILS RELATIVE PERCENT (BEAKER) (test 0 % vhln=445) BASOPHILS RELATIVE PERCENT (BEAKER) (test 0 % fdiq=654) NEUTROPHILS ABSOLUTE COUNT (BEAKER) (test 12.40 K/ L 1.80-8.00 kpqc=129) LYMPHOCYTES ABSOLUTE COUNT (BEAKER) (test 1.06 K/ L 1.48-4.50 dolw=156) MONOCYTES ABSOLUTE COUNT (BEAKER) (test 0.81 K/ L 0.00-1.30 pauq=214) EOSINOPHILS ABSOLUTE COUNT (BEAKER) (test 0.01 K/ L 0.00-0.50 hrhv=901) BASOPHILS ABSOLUTE COUNT (BEAKER) (test 0.03 K/ L 0.00-0.20 xkku=504) 0.000.530.000.000.520.000.000.000.00POCT-GLUCOSE [id number] 22:17:00 Test Item Value Reference Range Comments POC-GLUCOSE METER (BEAKER) 260 mg/dL 70-110 TESTED AT [address] (test mtkv=1121) [facility] [address] POCT-GLUCOSE [id number] 12:11:00 Test Item Value Reference Range Comments POC-GLUCOSE METER (BEAKER) 278 mg/dL 70-110 TESTED AT [address] (test oewd=1053) [facility] [address] HEMOGLOBIN [id number] 10:46:00 Test Item Value Reference Range Comments HEMOGLOBIN A1C (BEAKER) (test togs=116) 9.7 % 4.3-6.1 DC\S\Delta Check\S\NONEPOCT-GLUCOSE [id number] 07:15:00 Test Item Value Reference Range Comments POC-GLUCOSE METER (BEAKER) 283 mg/dL 70-110 TESTED AT [facility] [address] (test pstd=5306) [facility] [address] BASIC METABOLIC [id number] 04:43:00 Test Item Value Reference Range Comments SODIUM (BEAKER) (test 136 meq/L 136-145 mzeo=257) POTASSIUM (BEAKER) (test 4.0 meq/L 3.5-5.1 lzsz=240) CHLORIDE (BEAKER) (test 102 meq/L 98-107 zfyf=320) CO2 (BEAKER) (test 27 meq/L 22-29 bdfk=719) BLOOD UREA NITROGEN 18 mg/dL 7-21 (BEAKER) (test ppup=993) CREATININE (BEAKER) (test 0.95 mg/dL 0.57-1.25 xxgd=764) GLUCOSE RANDOM (BEAKER) 256 mg/dL 70-105 (test hamm=483) CALCIUM (BEAKER) (test 9.0 mg/dL 8.4-10.2 fhaj=504) EGFR (BEAKER) (test 71 mL/min/1.73 sq m ESTIMATED GFR IS NOT evyg=7494) ACCURATE CREATININE CLEARANCE IN PREDICTING GLOMERULAR FILTRATION RATE. ESTIMATED GFR IS NOT APPLICABLE FOR DIALYSIS PATIENTS. CBC WITH PLATELET COUNT + MANUAL [id number] 04:28:00 Test Item Value Reference Range Comments WHITE BLOOD CELL COUNT (BEAKER) (test uqgs=271) 11.6 K/ L 4.0-10.0 RED BLOOD CELL COUNT (BEAKER) (test ilrs=111) 4.15 M/ L 4.00-5.00 HEMOGLOBIN (BEAKER) (test bhbe=109) 13.3 GM/DL 12.0-15.0 HEMATOCRIT (BEAKER) (test ljgy=251) 40.5 % 36.0-45.0 MEAN CORPUSCULAR VOLUME (BEAKER) (test rljk=133) 97.6 fL 82.0-99.0 MEAN CORPUSCULAR HEMOGLOBIN (BEAKER) (test 32.1 pg 27.0-33.0 mtjr=329) MEAN CORPUSCULAR HEMOGLOBIN CONC (BEAKER) (test 32.9 GM/DL 32.0-36.0 xexw=220) RED CELL DISTRIBUTION WIDTH (BEAKER) (test 12.7 % 10.3-14.2 fxvv=699) PLATELET COUNT (BEAKER) (test ggkq=005) 263 K/CU MM 150-430 MEAN PLATELET VOLUME (BEAKER) (test jqmi=549) 8.2 fL 6.5-10.5 NUCLEATED RED BLOOD CELLS (BEAKER) (test 0 /100 WBC 0-0 flqz=150) NEUTROPHILS RELATIVE PERCENT (BEAKER) (test 90 % oewl=757) LYMPHOCYTES RELATIVE PERCENT (BEAKER) (test 8 % sipz=976) MONOCYTES RELATIVE PERCENT (BEAKER) (test 2 % buto=394) EOSINOPHILS RELATIVE PERCENT (BEAKER) (test 0 % izqd=735) BASOPHILS RELATIVE PERCENT (BEAKER) (test 0 % pdic=320) NEUTROPHILS ABSOLUTE COUNT (BEAKER) (test 10.40 K/ L 1.80-8.00 ufwl=614) LYMPHOCYTES ABSOLUTE COUNT (BEAKER) (test 0.95 K/ L 1.48-4.50 rjxj=619) MONOCYTES ABSOLUTE COUNT (BEAKER) (test 0.20 K/ L 0.00-1.30 kmng=596) EOSINOPHILS ABSOLUTE COUNT (BEAKER) (test 0.02 K/ L 0.00-0.50 dfub=410) BASOPHILS ABSOLUTE COUNT (BEAKER) (test 0.02 K/ L 0.00-0.20 jrve=185) 0.00PT/[id number] 04:25:00 Test Item Value Reference Range Comments PROTIME (BEAKER) (test tudl=563) 13.7 seconds 11.7-14.7 INR (BEAKER) (test zdmv=303) 1.1 <=5.9 PARTIAL THROMBOPLASTIN TIME (BEAKER) (test 32.8 seconds 22.5-36.0 mphy=850) RECOMMENDED COUMADIN/WARFARIN INR THERAPY RANGESSTANDARD DOSE: 2.0 - 3.0 Includes: PROPHYLAXIS forvenous thrombosis, systemic embolization; TREATMENT for venous thrombosis and/or pulmonary embolus.HIGH RISK: Target INR is 2.5-3.5 for patients with mechanical heart valves.POCT-GLUCOSE [id number] 02:47:00 Test Item Value Reference Range Comments POC-GLUCOSE METER (BEAKER) 278 mg/dL 70-110 TESTED AT [facility] [address] (test ysns=0102) [facility] [address] POCT-GLUCOSE [id number] 22:12:00 Test Item Value Reference Range Comments POC-GLUCOSE METER (BEAKER) 258 mg/dL 70-110 TESTED AT [facility] [address] (test rhtz=1789) [facility] [address] [id number] 15:44:00 Test Item Value Reference Range Comments MAGNESIUM (BEAKER) (test 2.1 mg/dL 1.6-2.6 Specimen slightly hemolyzed julm=781) [id number] 15:44:00 Test Item Value Reference Range Comments PHOSPHORUS (BEAKER) (test 2.9 mg/dL 2.3-4.7 Specimen slightly hemolyzed tnly=066) BASIC METABOLIC [id number] 15:44:00 Test Item Value Reference Range Comments SODIUM (BEAKER) (test 137 meq/L 136-145 fhib=524) POTASSIUM (BEAKER) (test 4.4 meq/L 3.5-5.1 Specimen slightly ieju=131) hemolyzed CHLORIDE (BEAKER) (test 99 meq/L 98-107 upiz=664) CO2 (BEAKER) (test 27 meq/L 22-29 hrue=186) BLOOD UREA NITROGEN 13 mg/dL 7-21 (BEAKER) (test qqhx=623) CREATININE (BEAKER) (test 0.96 mg/dL 0.57-1.25 Specimen slightly azrn=040) hemolyzed GLUCOSE RANDOM (BEAKER) 250 mg/dL 70-105 (test qfwz=629) CALCIUM (BEAKER) (test 9.6 mg/dL 8.4-10.2 dlnp=091) EGFR (BEAKER) (test 70 mL/min/1.73 sq m ESTIMATED GFR IS NOT gmrs=2037) ACCURATE CREATININE CLEARANCE IN PREDICTING GLOMERULAR FILTRATION RATE. ESTIMATED GFR IS NOT APPLICABLE FOR DIALYSIS PATIENTS. CBC WITH PLATELET COUNT + MANUAL [id number] 15:39:00 Test Item Value Reference Range Comments WHITE BLOOD CELL COUNT (BEAKER) (test cvcb=617) 9.5 K/ L 4.0-10.0 RED BLOOD CELL COUNT (BEAKER) (test gtya=163) 4.18 M/ L 4.00-5.00 HEMOGLOBIN (BEAKER) (test eyng=135) 14.0 GM/DL 12.0-15.0 HEMATOCRIT (BEAKER) (test lijo=088) 40.7 % 36.0-45.0 MEAN CORPUSCULAR VOLUME (BEAKER) (test tupe=205) 97.3 fL 82.0-99.0 MEAN CORPUSCULAR HEMOGLOBIN (BEAKER) (test 33.4 pg 27.0-33.0 rbrx=782) MEAN CORPUSCULAR HEMOGLOBIN CONC (BEAKER) (test 34.3 GM/DL 32.0-36.0 pzcw=505) RED CELL DISTRIBUTION WIDTH (BEAKER) (test 12.6 % 10.3-14.2 fsvc=396) PLATELET COUNT (BEAKER) (test jief=003) 253 K/CU MM 150-430 MEAN PLATELET VOLUME (BEAKER) (test iruv=863) 8.1 fL 6.5-10.5 NUCLEATED RED BLOOD CELLS (BEAKER) (test 0 /100 WBC 0-0 eulu=712) NEUTROPHILS RELATIVE PERCENT (BEAKER) (test 91 % sron=905) LYMPHOCYTES RELATIVE PERCENT (BEAKER) (test 8 % lxcp=065) MONOCYTES RELATIVE PERCENT (BEAKER) (test 1 % lwos=270) EOSINOPHILS RELATIVE PERCENT (BEAKER) (test 0 % rnom=900) BASOPHILS RELATIVE PERCENT (BEAKER) (test 0 % epbt=237) NEUTROPHILS ABSOLUTE COUNT (BEAKER) (test 8.66 K/ L 1.80-8.00 oymf=842) LYMPHOCYTES ABSOLUTE COUNT (BEAKER) (test 0.78 K/ L 1.48-4.50 gorc=848) MONOCYTES ABSOLUTE COUNT (BEAKER) (test 0.07 K/ L 0.00-1.30 poqw=646) EOSINOPHILS ABSOLUTE COUNT (BEAKER) (test 0.01 K/ L 0.00-0.50 xbwd=047) BASOPHILS ABSOLUTE COUNT (BEAKER) (test 0.01 K/ L 0.00-0.20 uvdg=420) [id number] 15:39:00 Test Item Value Reference Range Comments PROTIME (BEAKER) (test lelq=209) 12.7 seconds 11.7-14.7 INR (BEAKER) (test adsn=395) 1.0 <=5.9 PARTIAL THROMBOPLASTIN TIME (BEAKER) (test 32.8 seconds 22.5-36.0 zegx=013) RECOMMENDED COUMADIN/WARFARIN INR THERAPY RANGESSTANDARD DOSE: 2.0 - 3.0 Includes: PROPHYLAXIS forvenous thrombosis, systemic embolization; TREATMENT for venous thrombosis and/or pulmonary embolus.HIGH RISK: Target INR is 2.5-3.5 for patients with mechanical heart valves.
[2018-08-24 12:49] LABS: Arterial Blood Carboxyhemoglob 1.5 % (0-1.5); Blood Gas Oxyhemoglobin 95.6 % (94-97); Blood O2 Saturation 97.8 % (92-98.5)
[2018-08-24 12:50] LABS: Absolute Lymphocytes (CBC) 0.6 K/uL (0.7-4.9); Absolute Monocytes 0.3 K/uL (0.1-1.3); Absolute Neutrophil 5.6 K/uL (1.8-8.0); Eosinophils % 0.9 % (0-4.4); Hematocrit 33.8 % (36.0-45.0); Lymphocytes % 9.3 % (15.3-44.8); MPV 8.3 fL (7.6-11.3); Monocytes % 4.3 % (3.3-12.3); RBC Red Blood Cell Count 3.45 M/uL (3.86-4.86)
[2018-08-24] MEDS ORDERED: LEVALBUTEROL 1.25 MG/3 ML NEB ONE (12:54)
--- NOTE | 2018-08-24 13:15 | RAD REPORT ---
EXAM DESCRIPTION: RAD - Chest Single View - 08/24/2018 1:03 pm CLINICAL HISTORY: Shortness of breath COMPARISON: August 18 TECHNIQUE: AP portable chest image was obtained 1254 hours . FINDINGS: No peripheral mass, consolidation or significant failure/ volume overload finding. Lung ma rkings are prominent but not clearly different from the comparison study. Cardiomegaly is present wit hout vascular engorgement. No measurable pleural effusion and no pneumothorax. No acute bony abnormal ity seen. Aortic tortuosity is noted. Stenting of the descending thoracic aorta is present. IMPRESSION: No acute cardiopulmonary process. Above detailed chest findings are similar to August 18.
[2018-08-24 13:23] LABS: Albumin 3.7 g/dL (3.4-5.0); Bilirubin Direct 0.2 mg/dL (0-0.2); Bilirubin Total 0.5 mg/dL (0.2-1.0); Magnesium 1.6 mg/dL (1.8-2.4); Potassium 4.5 mmol/L (3.5-5.1); Protein, Total 8.2 g/dL (6.4-8.2); Troponin (Emerg Dept Use Only) 0.03 ng/mL (0.0-0.045)
[2018-08-24] MEDS ORDERED: Magnesium Sulfate 2gm IVPB 2 G/50 ML BAG IV ONE (13:59)
[2018-08-24] MEDS ORDERED: METOCLOPRAMIDE 10 MG/2mL INJ ONE (14:43)
[2018-08-24] MEDS ORDERED: NA CHLORIDE 0.9% 250 ML ONE (14:43)
--- NOTE | 2018-08-24 14:50 | ER ---
Nurse's Notes [facility] Name: Christa Ayala Age: 72 yrs Sex: Female : 1945 Arrival Date: 08/24/2018 Time: 12:14 Bed 4 Private MD: Diagnosis: Hypomagnesemia;Dehydration;Chronic respiratory failure with hypoxia Presentation: 08/24 12:05 Acuity: SONYA 2 sv 12:05 Presenting complaint: EMS states: called out for low O2 sat in the 80s and was sv lethargic. On EMS arrival pt's O2 tubing was kinked, lethargic, weak pulses, and poor skin turgor. BP 125/77 HR-77-187. Transition of care: patient was not received from another setting of care. Onset of symptoms was August 24, 2018. Risk Assessment: Do you want to hurt yourself or someone else? Patient reports no desire to harm self or others. Initial Sepsis Screen: Does the patient meet any 2 criteria? RR > 20 per min. No. Patient's initial sepsis screen is negative. Does the patient have a suspected source of infection? No. Patient's initial sepsis screen is negative. Care prior to arrival: IV initiated. 20 GA, in the left forearm, Oxygen administered. via nasal cannula. 12:05 Method Of Arrival: EMS: [facility] sv Triage Assessment: 12:05 General: Appears in no apparent distress. uncomfortable, Behavior is calm, cooperative, sv appropriate for age. Pain: Denies pain. Neuro: Level of Consciousness is awake, alert, obeys commands, Oriented to person, place, time, situation, Moves all extremities. Full function. Cardiovascular: Capillary refill is > 3 seconds is sluggish in bilateral fingers Patient's skin is warm and dry. Rhythm is sinus rhythm. Respiratory: Reports shortness of breath Airway is patent Respiratory effort is even, labored, Respiratory pattern is symmetrical, tachypnea. Derm: Skin is thin, with poor turgor Skin is dry, Skin is normal, Skin temperature is warm. Historical: - Allergies: 13:01 Codeine; sv 13:01 Demerol; sv 13:01 Iodine; sv - PMHx: 13:01 CHF; COPD; Diabetes - NIDDM; Emphysema; enlarged aorta; Hypertension; Myocardial sv infarction; Atrial Fib; - Immunization history:: Adult Immunizations up to date. - Social history:: Smoking status: Patient/guardian denies using tobacco. - Ebola Screening: : No symptoms or risks identified at this time. Screenin:15 Abuse screen: Denies threats or abuse. Denies injuries from another. Nutritional sv screening: No deficits noted. Tuberculosis screening: No symptoms or risk factors identified. Fall Risk None identified. Vital Signs: 12:08 BP 142 / 93; Pulse 85; Resp 26; Temp 97.5; Weight 52 kg; Height 5 ft. 6 in. (167.64 sv cm); Pain 0/10; 12:30 BP 158 / 99; Pulse 74; Resp 24; sv 13:40 BP 153 / 93; Pulse 97; Resp 24; sv 14:11 BP 155 / 103; Pulse 96; Resp 26; sv 15:00 BP 145 / 86; Pulse 99; Resp 18; Temp 98; sv 12:08 Body Mass Index 18.50 (52.00 kg, 167.64 cm) sv 12:08 Unable to get O2 sat, pt has poor capillary refill 3>seconds. O2 sat placed on sv forehead, bilateral ears and unsuccessful. Informed Logan GIORDANO, ABG ordered. 13:40 Unable to obtain O2 sat, Logan GIORDANO aware. sv ED Course: 12:05 Maintain EMS IV. Dressing intact. Good blood return noted. Site clean \T\ dry. right sv upper arm PICC line. 12:10 media monitor on. Pulse ox on. NIBP on. Door closed. Head of bed elevated. sv 12:14 Patient arrived in ED. ss 12:15 Arm band placed on. sv 12:15 Patient has correct armband on for positive identification. Bed in low position. Call sv light in reach. Side rails up X2. 12:17 Logan Gutierrez PA is PHCP. [facility] 12:17 Molina Dill MD is Attending Physician. [facility] 12:21 Gloria Miranda, PAUAL is Primary Nurse. sv 12:22 Triage completed. sv 12:30 Initial lab(s) drawn, by me, sent to lab. First set of blood cultures drawn by me. sv 12:45 Second set of blood cultures drawn by me. sv 12:50 ABG drawn. by RT staff, on oxygen. sv 13:03 XRAY Chest (1 view) In Process Unspecified. EDMS 13:57 Basic Metabolic Panel Sent. sv 13:57 CBC with Diff Sent. sv 13:57 LFT's Sent. sv 13:57 Magnesium Sent. sv 14:22 Awaiting disposition, Awaiting re-evaluation by ER provider. sv 14:46 Kendrick Stevens MD is Hospitalizing Provider. jmm 15:44 No provider procedures requiring assistance completed. Patient admitted, IV remains in sv place. intact. Administered Medications: 12:47 Drug: Xopenex (3) 1.25 mg Route: Inhalation; sv 13:35 Follow up: Response: No adverse reaction hb 13:52 Drug: Magnesium Sulfate 2 grams Route: IVPB; Infused Over: 2 hrs; Site: left hb antecubital; 15:17 Follow up: Response: No adverse reaction; IV Status: Completed infusion; IV Intake: sv 100ml 14:39 Drug: Reglan 10 mg Route: IVP; Site: PICC; sv 15:10 Follow up: Response: No adverse reaction sv 14:39 Drug: NS 0.9% 250 ml Route: IV; Rate: bolus; Site: PICC; sv 15:10 Follow up: Response: No adverse reaction; IV Status: Completed infusion; IV Intake: sv 250ml Intake: 15:10 IV: 250ml; Total: 250ml. sv 15:17 IV: 100ml; Total: 350ml. sv Outcome: 14:49 Decision to Hospitalize by Provider. jmm 15:45 Admitted to Tele accompanied by tech, family with patient, via stretcher, room 225, sv with oxygen, with chart, Report called to Prudence MITCHELL 15:45 Condition: stable 15:45 Instructed on the need for admit. 15:54 Patient left the ED. sv Signatures: Dispatcher [employer] EDMS Gloria Miranda RN RN Logan Gutierrez PA PA jmm Smirch, Shelby, RN RN Verito Chavez RN RN Corrections: (The following items were deleted from the chart) 12:56 12:08 BP 142 / 93; Pulse 85bpm; Resp 26bpm; Temp 97.5F; Pain 0/10; Unable to get O2 sv sat, pt has poor capillary refill 3>seconds. O2 sat placed on forehead, bilateral ears and unsuccessful. Informed Logan GIORDANO, ABG ordered.; sv 13:01 12:05 Presenting complaint: EMS states: called out for low O2 sat in the 80s and was sv lethargic. On EMS arrival pt's O2 tubing was kinked, lethargic, weak pulses, and poor skin turgor. BP 125/77 HR-77. sv
--- NOTE | 2018-08-24 14:50 | EDPHYS ---
Physician Documentation [facility] Name: Christa Ayala Age: 72 yrs Sex: Female : 1945 Arrival Date: 08/24/2018 Time: 12:14 Bed 4 Private MD: ED Physician Molina Dill HPI: 08/24 12:24 This 72 yrs old Black Female presents to ER via EMS with complaints of Low O2 sat. jmm 12:24 The patient has shortness of breath at rest. Onset: The symptoms/episode began/occurred jmm gradually, this morning. Duration: The symptoms are continuous. The patient's shortness of breath is aggravated by nothing, is alleviated by nothing. Associated signs and symptoms: Pertinent negatives: chest pain. This is a 72 year old female with a history of CHF, COPD, htn that presents to the ED with complaints of weakness, shortness of breath. Family states the patient has had a decreased appetite over the past 3 days. Patient denies chest pain. Patient also complains of chills. . Historical: - Allergies: 13:01 Codeine; sv 13:01 Demerol; sv 13:01 Iodine; sv - PMHx: 13:01 CHF; COPD; Diabetes - NIDDM; Emphysema; enlarged aorta; Hypertension; Myocardial sv infarction; Atrial Fib; - Immunization history:: Adult Immunizations up to date. - Social history:: Smoking status: Patient/guardian denies using tobacco. - Ebola Screening: : No symptoms or risks identified at this time. ROS: 13:01 Constitutional: Positive for malaise. jmm 13:01 Respiratory: Positive for shortness of breath. 13:01 Neuro: Positive for weakness. 13:01 All other systems are negative. Exam: 13:01 Constitutional: This is a well developed, well nourished patient who is awake, alert, jmm and in no acute distress. Head/Face: atraumatic. Eyes: EOMI, no conjunctival erythema appreciated ENT: Moist Mucus Membranes Neck: Trachea midline, Supple Chest/axilla: Normal chest wall appearance and motion. 13:01 Abdomen/GI: Non distended, soft Back: Normal ROM Skin: General appearance color normal MS/ Extremity: Moves all extremities, no obvious deformities appreciated, no edema noted to the lower extremities Neuro: Awake and alert, normal gait Psych: Behavior is normal, Mood is normal, Patient is cooperative and pleasant 13:01 Cardiovascular: Rate: normal, Rhythm: regular. 13:01 Cardiovascular: prolonged cap refill apprecaited. 13:01 Respiratory: mild respiratory distress is noted, Respirations: normal, Breath sounds: are clear throughout. 15:32 ECG was reviewed by the Attending Physician. [facility] Vital Signs: 12:08 BP 142 / 93; Pulse 85; Resp 26; Temp 97.5; Weight 52 kg; Height 5 ft. 6 in. (167.64 sv cm); Pain 0/10; 12:30 BP 158 / 99; Pulse 74; Resp 24; sv 13:40 BP 153 / 93; Pulse 97; Resp 24; sv 14:11 BP 155 / 103; Pulse 96; Resp 26; sv 15:00 BP 145 / 86; Pulse 99; Resp 18; Temp 98; sv 12:08 Body Mass Index 18.50 (52.00 kg, 167.64 cm) sv 12:08 Unable to get O2 sat, pt has poor capillary refill 3>seconds. O2 sat placed on sv forehead, bilateral ears and unsuccessful. Informed Logan GIORDANO, ABG ordered. 13:40 Unable to obtain O2 sat, Logan GIORDANO aware. sv MDM: 12:24 Patient medically screened. [facility] 14:44 Data reviewed: vital signs, nurses notes. Counseling: I had a detailed discussion with [facility] the patient and/or guardian regarding: the historical points, exam findings, and any diagnostic results supporting the discharge/admit diagnosis, lab results, radiology results, to return to the emergency department if symptoms worsen or persist or if there are any questions or concerns that arise at home. ED course: I discussed the patient with Dr. Stevens whom accepted admission. . 08/24 12:23 Order name: Basic Metabolic Panel [facility] 08/24 12:23 Order name: CBC with Diff [facility] 08/24 12:23 Order name: LFT's [facility] 08/24 12:23 Order name: Magnesium [facility] 08/24 12:23 Order name: NT PRO-BNP; Complete Time: 13:36 [facility] 08/24 12:23 Order name: PT-INR; Complete Time: 12:57 [facility] 08/24 12:23 Order name: Troponin (emerg Dept Use Only); Complete Time: 13:36 [facility] 08/24 12:23 Order name: Lactate [facility] 08/24 12:23 Order name: Blood Culture Adult (2) [facility] 08/24 12:23 Order name: Procalcitonin; Complete Time: 15:30 [facility] 08/24 12:23 Order name: ABG; Complete Time: 13:03 [facility] 08/24 12:24 Order name: Basic Metabolic Panel; Complete Time: 13:36 EDMD 08/24 12:24 Order name: CBC with Automated Diff; Complete Time: 12:57 EDMD 08/24 12:24 Order name: Liver (Hepatic) Function; Complete Time: 13:36 EDMS 08/24 12:23 Order name: XRAY Chest (1 view); Complete Time: 13:36 [facility] 08/24 12:23 Order name: EKG; Complete Time: 12:24 [facility] 08/24 12:23 Order name: Cardiac monitoring; Complete Time: 13:56 [facility] 08/24 12:23 Order name: IV Saline Lock; Complete Time: 13:57 [facility] 08/24 12:23 Order name: Labs collected and sent; Complete Time: 13:57 [facility] 08/24 12:24 Order name: Magnesium; Complete Time: 13:36 EDMD 08/24 15:00 Order name: Regular EDMS 08/24 15:00 Order name: Basic Metabolic Panel [facility] 08/24 15:00 Order name: Basic Metabolic Panel [facility] 08/24 15:00 Order name: CBC with Automated Diff EDMS 08/24 15:00 Order name: CBC with Automated Diff EDMS 08/24 12:23 Order name: O2 Per Protocol; Complete Time: 13:57 [facility] 08/24 12:23 Order name: O2 Sat Monitoring; Complete Time: 13:57 jm EC:32 Rate is 77 beats/min. Rhythm is regular. QRS [place] is Normal. ID interval is normal. QRS jmm interval is normal. QT interval is normal. No Q waves. T waves are Flattened in leads I, II, III, aVL, aVF, aVR, V2, V3, V4, V5, V6. No ST changes noted. Administered Medications: 12:47 Drug: Xopenex (3) 1.25 mg Route: Inhalation; sv 13:35 Follow up: Response: No adverse reaction hb 13:52 Drug: Magnesium Sulfate 2 grams Route: IVPB; Infused Over: 2 hrs; Site: left antecubital; 15:17 Follow up: Response: No adverse reaction; IV Status: Completed infusion; IV Intake: sv 100ml 14:39 Drug: Reglan 10 mg Route: IVP; Site: PICC; sv 15:10 Follow up: Response: No adverse reaction sv 14:39 Drug: NS 0.9% 250 ml Route: IV; Rate: bolus; Site: PICC; sv 15:10 Follow up: Response: No adverse reaction; IV Status: Completed infusion; IV Intake: sv 250ml Disposition: 08/25 09:08 Co-signature as Attending Physician, Molina Dill MD I agree with the assessment and kdr plan of care. Disposition: 08/24/18 14:49 Hospitalization ordered by Kendrick Stevens for Inpatient Admission. Preliminary diagnosis are Hypomagnesemia, Dehydration, Chronic respiratory failure with hypoxia. - Bed requested for Telemetry/MedSurg (Inpatient). - Status is Inpatient Admission. sv - Condition is Stable. - Problem is an acute exacerbation. - Symptoms are unchanged. UTI on Admission? No Signatures: Dispatcher [employer] Gloria Wolff RN RN Rebecca Sheehan RN RN Molina Dill MD MD [facility] Logan Gutierrez PA PA jm Verito Chavez, RN RN Corrections: (The following items were deleted from the chart) 08/24 15:24 14:49 Hospitalization Ordered by Kendrick Stevens MD for Inpatient Admission. Preliminary diagnosis is Hypomagnesemia; Dehydration; Chronic respiratory failure with hypoxia. Bed requested for Telemetry/MedSurg (Inpatient). Status is Inpatient Admission. Condition is Stable. Problem is an acute exacerbation. Symptoms are unchanged. UTI on Admission? No. shakir 15:54 15:24 08/24/2018 14:49 Hospitalization Ordered by Kendrick Stevens MD for Inpatient sv Admission. Preliminary diagnosis is Hypomagnesemia; Dehydration; Chronic respiratory failure with hypoxia. Bed requested for Telemetry/MedSurg (Inpatient). Status is Inpatient Admission. Condition is Stable. Problem is an acute exacerbation. Symptoms are unchanged. UTI on Admission? No. dw
[2018-08-24] MEDS ORDERED: ONDANSETRON 4 MG/2 ML VIAL IV PRN (14:57)
[2018-08-24] MEDS ORDERED: ACETAMINOPHEN 500 MG TAB PO PRN (14:57)
--- NOTE | 2018-08-24 16:29 | EKG ---
Test Date: 2018-08-24 Test Time: 13:06:57 [employer]iter: AG/S MEASUREMENT RESULTS: Intervals: Rate: 77 MT: 164 QRSD: 78 QT: 334 QTc: 377 [place]: P: MT: 164 QRS: -14 T: -72 INTERPRETIVE STATEMENTS: Normal sinus rhythm Nonspecific ST and T wave abnormality Abnormal ECG Compared to ECG 08/18/2018 12:23:02 ST (T wave) deviation now present Myocardial infarct finding no longer present Electronically Signed On 08-24-18 16:29:06 CDT by John Foster
[2018-08-24 16:37] VITALS: BMI 18.3
[2018-08-24] MEDS: D5 0.45 NS 1,000 ML IV SCH (16:52)
[2018-08-24] MEDS: CARVEDILOL 6.25 MG TAB PO SCH (22:14)
[2018-08-25 05:13] LABS: Urine Appearance CLEAR; Urine Blood NEGATIVE (NEG); Urine Color YELLOW; Urine Glucose NEGATIVE (NEG); Urine Protein NEGATIVE (NEG)
[2018-08-25] MEDS: PANTOPRAZOLE 40MG TABLET PO SCH (05:34)
[2018-08-25] MEDS: CARVEDILOL 6.25 MG TAB PO SCH ×2 (05:34→17:08)
[2018-08-25 05:54] LABS: Urine Bilirubin NEG (NEG); Urine Microscopic Reflex ORDER UMIC
[2018-08-25 05:55] LABS: Absolute Lymphocytes (CBC) 0.8 K/uL (0.7-4.9); Absolute Monocytes 0.5 K/uL (0.1-1.3); Absolute Neutrophil 4.7 K/uL (1.8-8.0); Basophils % 1.2 % (0-1.3); Eosinophils % 1.5 % (0-4.4); Hematocrit 29.3 % (36.0-45.0); Lymphocytes % 12.9 % (15.3-44.8); MPV 8.2 fL (7.6-11.3); Monocytes % 7.9 % (3.3-12.3); RBC Red Blood Cell Count 3.01 M/uL (3.86-4.86)
[2018-08-25 06:01] LABS: Urine Bacteria >50 /HPF (<20); Urine Culture Reflex Order NOT NEEDED; Urine RBC <5 /HPF (NONE SEEN)
[2018-08-25 06:29] LABS: Digoxin Level 1.6 ng/mL (0.80-2.00); Potassium 4.1 mmol/L (3.5-5.1)
[2018-08-25] MEDS: D5 0.45 NS 1,000 ML IV SCH ×2 (07:14→17:08)
[2018-08-25] MEDS: DIGOXIN 0.125 MG TABLET PO SCH (09:15)
[2018-08-25] MEDS: ESCITALOPRAM 20 MG TAB PO SCH (09:15)
[2018-08-25] MEDS: CLOPIDOGREL 75 MG TABLET PO SCH (09:15)
[2018-08-25] MEDS: ASPIRIN 81 MG CHEWABLE TABLET PO SCH (09:16)
[2018-08-25] MEDS: ISOSORBIDE MONO SR 30 MG TAB PO SCH (09:16)
--- NOTE | 2018-08-25 19:32 | HP ---
Date of Admission: 08/24/2018 Chief Complaint: Fatigue, shortness of breath, decreased oxygen levels. History Of Present Illness: The patient presented to the emergency room with the above outlined symp toms. Some of this symptomatology began prior to admission to the ER, when she was seen by home mely perez, who felt that she was getting somewhat weaker and she was anorectic, and at 1 time they got an O2 saturation right in the 80. She was therefore, brought to the emergency room, at which time her oxy gen monitor was improved, and she was seen in the emergency room, and evaluated for possible admissio n. Past History: The patient has had significant problems over the past few years including numerous ho spitalizations with her problems ranging from COPD, CHF, CAD, and AAA. She has been seen in [place] and here for both these problems as mentioned on numerous occasions. Social History: Nonsmoker and nondrinker at present. Family History: Noncontributory. Physical Examination: General: The patient is an elderly cachectic female, hypotensive, slightly tachycardic, responsive a nd orientated. Head and Neck: Normocephalic. Pupils are equal, reactive to light and accommodation. Fundi negativ e. Trachea midline. Thyroid not palpable. ENT: Negative. Chest: Clear to P and A. Cardiovascular: PMI in midclavicular line. Heart sounds normal. Peripheral pulses present and equa l bilaterally. Abdomen: No organomegaly. Bowel sounds present. Extremities: Slightly dehydrated. Good tone and movement bilaterally. Reflexes physiologic. Rectal and Pelvic: Deferred. Impression: General malaise. Anorexia. Weight loss. Plan: The patient will be admitted, placed on IV fluids for nutritional value. Continue on her home medication, and some of the medicines will be re-evaluated prior to starting her diabetic medicine, I feel that maybe her blood sugars have been over treated lately with the hypoglycemic readings, and this will be evaluated during her hospital stay including her Bumex, and depending on her status, she may need to be in the hospital for the next day or so. HR/MODL Voice ID: [id number]
--- NOTE | 2018-08-25 19:35 | PN ---
As far as the Milrinone is concerned, the patient has been on this since she was discharged from her hospitalization for the AAA and acute on chronic CHF, and they were not able to wean her off it durin g her hospitalization and therefore she has been maintained on the same dose. She is to see them in 2 weeks. Will continue as ordered. HR/MODL Voice ID: [id number] Report ID: [id number]
--- NOTE | 2018-08-25 19:35 | PN ---
Date of Progress Note: 08/25/2018 The patient is seen, is somewhat more alert today. She is also hydrated better, however, her general status has not significantly improved. She is maintained on medication with the exclusion of the me tformin and Bumex, and if she is in fact seems more responsive, she could be discharged in the next d ay or so with changes in these medications depending on her responsiveness. She required magnesium r eplacement as well. HR/MODL Voice ID: [id number] Report ID: [id number]
[2018-08-25] MEDS: GLUCERNA SHAKE 237 ML CAN PO SCH (20:21)
[2018-08-26] MEDS: D5 0.45 NS 1,000 ML IV SCH ×2 (01:25→06:13)
[2018-08-26 05:27] LABS: Potassium 3.9 mmol/L (3.5-5.1)
[2018-08-26] MEDS: CARVEDILOL 6.25 MG TAB PO SCH (05:38)
[2018-08-26] MEDS: PANTOPRAZOLE 40MG TABLET PO SCH (05:38)
[2018-08-26] MEDS ORDERED: POTASSIUM CL SA 10 MEQ TAB PO ONE (07:00)
[2018-08-26] MEDS: DIGOXIN 0.125 MG TABLET PO SCH (09:25)
[2018-08-26] MEDS: ASPIRIN 81 MG CHEWABLE TABLET PO SCH (09:25)
[2018-08-26] MEDS: CLOPIDOGREL 75 MG TABLET PO SCH (09:25)
[2018-08-26] MEDS: ESCITALOPRAM 20 MG TAB PO SCH (09:25)
[2018-08-26] MEDS: ISOSORBIDE MONO SR 30 MG TAB PO SCH (09:25)
[2018-08-26] MEDS: GLUCERNA SHAKE 237 ML CAN PO SCH (09:26)
--- NOTE | 2018-08-26 12:14 | P.SSS ---
Patient History Date of Service: 08/26/18 Reason for admission: Shortness of breath History of Present Illness: This is a 72-year-old female with significant past medical history who was initially presented to the hospital with shortness of breath and was admitted to the hospital for generalized weakness electrolyte abnormality and hypoxia. Please refer to the H and P for further information on history of present illness Allergies iodine Allergy (Mild, Verified 06/03/18 18:17) Itching/Hives/Rash codeine Adverse Reaction (Intermediate, Verified 06/03/18 18:17) Hives/Rash Home Medications: Acetaminophen [Tylenol] 325 mg PO Q6H PRN 08/24/18 Aspirin [Aspirin EC 81 MG] 81 mg PO DAILY 08/24/18 Atorvastatin Calcium 40 mg PO DAILY 08/24/18 Bumetanide [Bumex*] 1 mg PO BID 08/24/18 Carvedilol [Coreg*] 6.25 mg PO BID 08/24/18 Clopidogrel Bisulfate [Plavix*] 75 mg PO DAILY 08/24/18 Digoxin [Lanoxin*] 0.125 mg PO DAILY 08/24/18 Escitalopram [Lexapro*] 10 mg PO DAILY 08/24/18 Isosorbide Mononitrate [Isosorbide Mononitrate ER] 30 mg PO DAILY 08/24/18 Metformin HCl 1,000 mg PO BID 08/24/18 Pantoprazole [Protonix Tab*] 40 mg PO DAILY 08/24/18 - Past Medical/Surgical History Has patient received pneumonia vaccine in the past: Yes Diabetic: Yes -: HTN -: Hyperlipidemia -: Diabetes mellitus type 2 [id number] -: COPD, oxygen-dependent -: CAD with prior stent -: Systolic congestive heart failure, ejection fraction 30% -: Thoracic aortic aneurysm -: Chronic kidney disease -: Anemia of chronic disease -: GERD -: Former tobacco use -: Hiatal hernia repair -: Aortic aneurysm -: 2 cardiac stents (2010) Psychosocial/ Personal History: Patient is - Family History Father -: Heart disease Mother -: Diabetes Sister -: Diabetes - Social History Smoking Status: Never smoker Alcohol use: No CD- Drugs: No Caffeine use: Yes Place of Residence: Home Review of Systems 10-point ROS is otherwise unremarkable Physical Examination - Vital Signs Temperature: 97.4 F Blood Pressure: 128/68 Pulse: 83 Respirations: 18 Pulse Ox (%): 97 - Physical Exam General: Alert, In no apparent distress HEENT: Atraumatic, PERRLA, Mucous membr. moist/pink, EOMI, Sclerae nonicteric Neck: Supple, 2+ carotid pulse no bruit, No LAD, Without JVD or thyroid abnormality Respiratory: Clear to auscultation bilaterally, Normal air movement Cardiovascular: Regular rate/rhythm, Normal S1 S2 Gastrointestinal: Normal bowel sounds, No tenderness Musculoskeletal: No tenderness Integumentary: No rashes Neurological: Normal gait, Normal speech, Normal strength at 5/5 x4 extr, Normal tone, Normal affect Lymphatics: No axilla or inguinal lymphadenopathy - Diagnosis (Problem(s)) (1) Shortness of breath Current Visit: Yes Status: Acute (2) Electrolyte abnormality Current Visit: Yes Status: Acute (3) CAD (coronary artery disease) Onset Date: 04/25/17 Current Visit: No Status: Chronic Qualifiers: Coronary Disease-Associated Artery/Lesion type: [place] artery [place] vs. transplanted heart: [place] heart Associated angina: without angina Qualified Code(s): I25.10 - Atherosclerotic heart disease of [place] coronary artery without angina pectoris (4) CHF (congestive heart failure) Onset Date: 04/25/17 Current Visit: No Status: Chronic Qualifiers: Heart failure type: combined systolic and diastolic Heart failure chronicity: chronic Qualified Code(s): I50.42 - Chronic combined systolic ( congestive) and diastolic (congestive) heart failure (5) COPD (chronic obstructive pulmonary disease) Onset Date: 10/03/17 Current Visit: No Status: Chronic Qualifiers: COPD type: chronic bronchitis Chronic bronchitis type: simple Qualified Code(s): J41.0 - Simple chronic bronchitis (6) Chronic renal disease, stage III Onset Date: 02/13/18 Current Visit: No Status: Chronic (7) Diabetes mellitus type 2 Onset Date: 04/25/17 Current Visit: No Status: Chronic (8) Hyperlipidemia Onset Date: 10/03/17 Current Visit: No Status: Chronic Qualifiers: Hyperlipidemia type: mixed hyperlipidemia (9) Hypertensive disorder, systemic arterial Onset Date: 04/25/17 Current Visit: No Status: Chronic Treatment Summary: Overall during the hospital stay patient remained stable Patient was initially admitted to the hospital for shortness of breath. Patient does use home oxygen at 2 L due to COPD. Oxygen was disconnected from the tank. However since patient was hypoxic and appeared to be short of breath she was brought over to the ER for further checkup. While here in the ER patient had lab work done which revealed hypomagnesemia and generalized weakness and thus patient was admitted for observation. Patient hypomagnesemia was replaced and patient had physical therapy consulted here in the hospital. Patient worked with physical therapy and overall did very well with them and thus the decision was made to discharge the patient home and have home health follow up with her outpatient. Patient agreed with the plan and thus patient was discharged home under stable condition. For patient's hypoxia she was a successfully able to wean off the 2 L of nasal cannula that she uses at home. Patient was educated extensively on the use of the oxygen machine at home and the need to continue with all her medication as prescribed per her primary care provider. Patient also currently takes Milirione infusion that was started by a doctor in [place] for her CHF. Patient was asked to follow up with the physician in [place] to ensure that she has taken off the infusion correctly. Patient was asked to follow up with primary care provider in about 1-2 days post discharge. - Disposition Disposition: ROUTINE DISCHARGE Condition: GOOD Diet: Regular Activity: Ad angelo
[2018-08-26 12:18] VITALS: BP 115/74; TEMP 97
[2018-08-26 12:26] VITALS: O2SAT 98
== END 2018-08-26 15:36 | disposition home health service (06) ==
LOC: ER 12:09 → INTOOBSV 14:56 → ERHOLD 14:56 → 2ND 15:46
PROVIDERS: ADMIT Family Medicine; ATTEND Family Medicine
DX: E83.42 Hypomagnesemia (principal); E86.0 Dehydration; I13.0 Hypertensive heart and chronic kidney disease with heart failure and stage 1 through stage 4 chronic kidney disease, or unspecified chronic kidney disease; I50.42 Chronic combined systolic (congestive) and diastolic (congestive) heart failure; N18.3 Chronic kidney disease, stage 3 (moderate); E11.22 Type 2 diabetes mellitus with diabetic chronic kidney disease; J44.9 Chronic obstructive pulmonary disease, unspecified; E78.2 Mixed hyperlipidemia; R53.81 Other malaise; R63.0 Anorexia; Z68.1 Body mass index [BMI] 19.9 or less, adult; R94.31 Abnormal electrocardiogram [ECG] [EKG]; I25.10 Atherosclerotic heart disease of native coronary artery without angina pectoris; I71.4 Abdominal aortic aneurysm, without rupture; I95.9 Hypotension, unspecified; I48.91 Unspecified atrial fibrillation; Z79.84 Long term (current) use of oral hypoglycemic drugs; Z79.82 Long term (current) use of aspirin; Z79.899 Other long term (current) drug therapy; Z99.81 Dependence on supplemental oxygen; Z95.5 Presence of coronary angioplasty implant and graft; Z87.891 Personal history of nicotine dependence; K21.9 Gastro-esophageal reflux disease without esophagitis
CPT/HCPCS: 96365; 93005; 87040 ×2; 85025 ×2; 80048 ×3; 36415 ×2; 83735 ×2; 85610; 80162; 82962 ×9; 80076; 83605; 84484; 84145; 83880; 71045; 97116; 97162; 82805; 96375; 99285; J2765; J3475; G0378 ×2; 81003; 81015

== ENCOUNTER 2018-08-26 21:16 | Emergency (ER) | payer OTHER ==
--- OUTSIDE RECORDS SUMMARY | 2018-08-26 21:21 | XMS REPORT | Clinical Summary ---
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 REPRESENTATIVE aortic aneurysm (HCC) (Primary Dx) 08/09/2018 Orders [...] mellitus with other specified complication, unspecified whether skilled nursing insulin use (HCC); Cardiogenic shock (HCC); Ischemic cardiomyopathy; Acute on chronic systolic heart failure (HCC); Acute respiratory insufficiency; Right ventricular dysfunction; Essential hypertension 06/29/2018 Surgery Shahidaza, REPAIR,TEVAR-THORACIC [facility] ENDOVASCULAR ANEURYSM MD Suzette after 08/25/2017 Family History Medical History Relation Name Comments [...] Office Visit Transplant Kenton Levy MD [address] [address] [phone] Implants Implanted Type Area Head Of It Device Shelf Model / Identifier Expiration Serial / Date Lot Grft Zenith Thor Endo [id number] - [id number] CV Aneurysm COOK:AORTIC [id number] 03/20/2021 [id number] / Implanted: Qty: 1 on 06/29/2018 by Masha Servin MD INTERVENTION / [id number] Grft [employer] Endo [id number] - [id number] CV Aneurysm COOK:AORTIC [id number] 02/10/2019 [id number] / Implanted: Qty: 1 on 06/29/2018 by Masha Servin MD INTERVENTION / [id number] Grft [employer] Endo [id number] - [id number] CV Aneurysm COOK:AORTIC [id number] 12/27/2020 [id number] / Implanted: Qty: 1 on 06/29/2018 by Masha Servin MD INTERVENTION / [id number] [employer] Coronary [place] [id number] 01/10/2018 [id number] / Implanted: Qty: 1 on 07/18/2017 by Oksana Stallings MD SCIENTIFIC / [id number] Procedures Procedure Name Priority Date/Time Associated Comments [...] TEVAR, CSF Special Needs TEVAR, CSF after 08/25/2017 Results RHYTHM STRIP - SCAN (07/25/2018 9:50 AM CDT)Only the most recent of3 resultswithin the time period is included. Narrative Performed At VASCULAR DIAGRAM -SCAN (07/25/2018 9:50 AM CDT) Narrative Performed At POC-Glucose meter (07/22/2018 12:27 PM CDT)Only the most recent of64 resultswithin the time period is included. POC-Glucose Meter 221 (H)Comment: TESTED AT 70 - 110 mg/dL [facility] [address] [facility] [address] Specimen Blood Performing Organization Address City/[facility]/Zipcode Phone Number [place] [phone] [place] [address] CENTER XR chest 1 view portable / [...] MD Report Verified Date/Time:07/22/2018 08:57:17 Reading Location: [address] Neuro Reading Room Procedure Note Interface, [...] Report Verified Date/Time: 07/22/2018 08:57:17 Reading Location: [address] Neuro Reading Room Performing Organization Address City/State/Zipcode Phone Number GE RIS aPTT (07/22/2018 4:58 AM CDT)Only the most recent of22 resultswithin the time period is included. PTT 44.5 (H) 22.5 - 36.0 seconds [facility] Specimen Blood Performing Organization Address City/[facility]/Zipcode Phone Number [address] [address] [phone] [place] CBC (Hemogram only) (07/22/2018 4:58 AM CDT)Only the most recent of20 resultswithin the time period is included. WBC 6.6 3.5 - 10.5 K/L [facility] RBC 2.45 (L) 3.93 - 5.22 M/L [facility] Hemoglobin 7.7 (L) 11.2 - 15.7 GM/DL [facility] Hematocrit 26.1 (L) 34.1 - 44.9 % [facility] MCV 106.5 (H) 79.4 - 94.8 fL [facility] MCH 31.4 25.6 - 32.2 pg [facility] MCHC 29.5 (L) 32.2 - 35.5 GM/DL [facility] RDW 18.0 (H) 11.7 - 14.4 % [facility] Platelets 227 150 - 450 K/CU MM [facility] MPV 10.0 9.4 - 12.3 fL [facility] nRBC 0 0 - 0 /100 WBC [facility] Specimen Blood Performing Organization Address City/State/Zipcode Phone Number [address] [address] [phone] CENTER Phosphorus (07/22/2018 4:58 AM CDT)Only the most recent of20 resultswithin the time period is included. Phosphorus 3.9 2.3 - 4.7 mg/dL [facility] Specimen Blood Performing Organization Address City/State/Zipcode Phone Number [address] [address] CENTER Magnesium (07/22/2018 4:58 AM CDT)Only the most recent of22 resultswithin the time period is included. Magnesium 1.7 1.6 - 2.6 mg/dL [facility] Specimen Blood Performing Organization Address City/[facility] Phone Number [facility] [address] [place] [address] CENTER Basic Metabolic Panel (07/22/2018 4:58 AM CDT)Only the most recent of27 resultswithin the time period is included. Sodium 139 136 - 145 meq/L [facility] Potassium 4.4 3.5 - 5.1 meq/L [facility] Chloride 102 98 - 107 meq/L [facility] CO2 30 (H) 22 - 29 meq/L [facility] BUN 23 (H) 7 - 21 mg/dL [facility] Creatinine 1.40 (H) 0.57 - 1.25 mg/dL [facility] Glucose 139 (H) 70 - 105 mg/dL [facility] Calcium 8.8 8.4 - 10.2 mg/dL [facility] EGFR 45Comment: ESTIMATED GFR IS mL/min/1.73 sq m [facility] NOT ACCURATE CREATININE [facility] CENTER CLEARANCE IN PREDICTING GLOMERULAR FILTRATION RATE. ESTIMATED GFR IS NOT APPLICABLE FOR DIALYSIS PATIENTS. Specimen Blood Performing Organization Address City/[facility]/Zipcode Phone Number [facility] [address] [place] [address] [phone] CENTER Prothrombin time/INR (07/19/2018 4:49 AM CDT)Only the most recent of19 resultswithin the time period is included. Protime 13.9 11.7 - 14.7 seconds [facility] INR 1.1 <=5.9 [facility] Specimen Blood Narrative Performed At RECOMMENDED COUMADIN/WARFARIN INR THERAPY [facility] RANGES STANDARD DOSE: 2.0 - 3.0 Includes: PROPHYLAXIS for venous thrombosis, systemic embolization; TREATMENT for venous thrombosis and/or pulmonary embolus. HIGH RISK: Target INR is 2.5-3.5 for patients with mechanical heart valves. Performing Organization Address [facility] Phone Number [address] [address] CENTER Digoxin level (07/13/2018 8:06 AM CDT) Digoxin Lvl 0.8 0.8 - 2.0 ng/mL [facility] Specimen Blood Narrative Performed At Draw before next dose of Digoxin [facility] Performing Organization Address [facility] Phone Number [address] [address] [place] TRANSFUSION SERVICE REPORT - SCAN (07/12/2018 5:56 PM CDT)Only the most recent of3 resultswithin the time period is included. Narrative Performed At Prepare Leuko-Red RBC (07/11/2018 11:54 PM CDT) Unit ABO A Pos SAFETRACE TX UNIT NUMBER [id number] SAFETRACE TX Status TX_TIMEINCHART SAFETRACE TX Blood Bank Product RED BLOOD CELLS SAFETRACE [place] PRODUCT CODE [id number] SAFETRACE TX CROSSMATCH COMPATIBLE SAFETRACE TX Specimen Other Performing Organization Address [facility] Phone Number SAFETRACE [place] [employer]use Leuko-Red RBC (07/10/2018 6:35 PM CDT)Only the most recent of2 resultswithin the time period is included.Type and screen, automated (2018 5:25 AM CDT)Only the most recent of2 resultswithin the time period is included. ABO/RH AUTOMATED (BEAKER) A POSITIVE [facility] Ab Scrn NEGATIVE [facility] Specimen Blood Performing Organization Address [facility] Phone Number [address] [address] ECG 12 lead (07/08/2018 12:15 PM CDT)Only the most recent of2 resultswithin the time period is included. Specimen Narrative Performed At Ventricular Rate 107 BPM GE MUSE Atrial Rate 107 BPM P-R Interval 154 ms QRS Duration 104 ms Q-T Interval 382 ms QTC Calculation(Bazett) 509 ms P [place] 52 degrees R [place] -18 degrees T [place] 62 degrees Sinus tachycardia Nonspecific T wave [...] 382 ms QTC Calculation(Bazett) 509 ms P [place] 52 degrees R [place] -18 degrees T [place] 62 degrees Sinus tachycardia Nonspecific T wave abnormality Prolonged QT Abnormal ECG When compared with ECG of 06-JUL-2018 10:28, Nonspecific T wave abnormality, improved in Anterior leads QT has lengthened Confirmed by MD GENAO YOCHAI ([id number]) on 07/09/2018 6:44:32 AM Performing Organization Address City/State/Zipcode Phone Number [employer] MUSE Blood gas, arterial (07/06/2018 4:26 PM CDT)Only the most recent of6 resultswithin the time period is included. pH, Arterial 7.46 (H) 7.35 - 7.45 [facility] pCO2, Arterial 42 35 - 45 mmHg [facility] pO2, Arterial 63 (L) 80 - 90 mmHg [facility] O2 Sat, Arterial 93.1 (L) 96.0 - 97.0 % [facility] HCO3, Arterial 29 21 - 29 mmol/L [facility] Base Excess, Arterial 4.4 (H) -2.0 - 3.0 mmol/L [facility] Patient Temperature 37.0 C [facility] FIO2 32.0 % [facility] Specimen Blood, Arterial Performing Organization Address City/[facility]/Zipcode Phone Number [address] [address] [place] Hepatic function panel (07/05/2018 5:16 PM CDT)Only the most recent of2 resultswithin the time period is included. Protein, Total 6.2 6.0 - 8.3 gm/dL [facility] Albumin 3.2 (L) 3.5 - 5.0 g/dL [facility] Total Bilirubin 0.7 0.2 - 1.2 mg/dL [facility] Bilirubin, Direct 0.5 0.1 - 0.5 mg/dL [facility] Alkaline Phosphatase 84 40 - 150 U/L [facility] AST 16 5 - 34 U/L [facility] ALT 9 6 - 55 U/L [facility] Specimen Blood Performing Organization Address [facility]/Zipcode Phone Number [address] [address] [place] Potassium (07/03/2018 10:03 AM CDT) Potassium 4.3 3.5 - 5.1 meq/L [facility] Specimen Blood Narrative Performed At Check Serum Potassium level 30 minutes after [facility] IV potassium replacement completed. Performing Organization Address City/State/Zipcode Phone Number [address] [address] [phone] [place] XR abdomen / KUB 1 view (07/03/2018 [...] MD Report Verified Date/Time:07/03/2018 06:21:16 Reading Location: [facility] C013 Transitional Reading Room Procedure Note Interface, [...] Report Verified Date/Time: 07/03/2018 06:21:16 Reading Location: [facility] C013T Transitional Reading Room Performing Organization Address City/State/Zipcode Phone Number [facility] Oxygen saturation, measured (07/02/2018 10:46 AM CDT)Only the most recent of3 resultswithin the time period is included. O2 Saturation (Measured) 50.1 % [facility] Specimen Blood Performing Organization Address City/[facility]/Zipcode Phone Number [address] [address] [phone] CENTER CBC with platelet count + automated diff (07/02/2018 4:09 AM CDT)Only the most recent of6 resultswithin the time period is included. WBC 7.9 3.5 - 10.5 K/L [facility] RBC 2.83 (L) 3.93 - 5.22 M/L [facility] Hemoglobin 8.6 (L) 11.2 - 15.7 GM/DL [facility] Hematocrit 28.4 (L) 34.1 - 44.9 % [facility] MCV 100.4 (H) 79.4 - 94.8 fL [facility] MCH 30.4 25.6 - 32.2 pg [facility] MCHC 30.3 (L) 32.2 - 35.5 GM/DL [facility] RDW 17.9 (H) 11.7 - 14.4 % [facility] Platelets 222 150 - 450 K/CU MM [facility] MPV 9.9 9.4 - 12.3 fL [facility] nRBC 0 0 - 0 /100 WBC [facility] % Neutros 85 % [facility] % Lymphs 6 % [facility] % Monos 8 % [facility] % Eos 1 % [facility] % Baso 0 % [facility] # Neutros 6.67 (H) 1.56 - 6.13 K/L [facility] # Lymphs 0.46 (L) 1.18 - 3.74 K/L [facility] # Monos 0.64 (H) 0.24 - 0.36 K/L [facility] # Eos 0.06 0.04 - 0.36 K/L [facility] # Baso 0.02 0.01 - 0.08 K/L [facility] Immature 1 0 - 1 % [facility] Granulocytes-[facility]ENTER Specimen Blood Performing Organization Address City/State/Zipcode Phone Number [facility] [address] [place] [address] CENTER ECHOCARDIOGRAM REPORT - SCAN (06/30/2018 9:22 PM CDT) Narrative Performed At 2D Echo W/Doppler(CW/PW/Color) (06/30/2018 8:36 AM CDT) Ejection Fraction [facility] Specimen Narrative Performed At Transthoracic Echocardiography Report (TTE) [facility]CHO [facility]ART[facility] Demographics Patient Name DANA, Date of Study 06/30/2018 DURGA [id number] GenderFemale Visit Number [id number] Black [id number] Room Number 2C52 Number Date of Birth1945Referring Physician Malathi Flanagan Age72 year(s)Micro 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 Fela Antunez [facility] AnalystIzolddivya [place] InterpretingJaime Smiley MD Ciolan [...] Study 06/30/2018 DURGA Gender Female Visit Number [id number] Race Black Room Number 2C52 Number Date of 1945 Referring Physician Malathi Flanagan Age 72 year(s) 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 BNP 14,363 (H) 0 - 100 pg/mL [facility] Specimen Blood Performing Organization Address [facility] Phone Number [address] [phone] CENTER Prepare RBC (06/30/2018 1:27 AM CDT) CROSSMATCH COMPATIBLE SAFETRACE TX Unit ABO A Pos SAFETRACE TX UNIT NUMBER [id number] SAFETRACE TX Status RETURNED FROM ISSUE SAFETRACE TX Blood Bank Product RED BLOOD CELLS SAFETRACE TX PRODUCT CODE [id number] SAFETRACE TX CROSSMATCH COMPATIBLE SAFETRACE TX Unit ABO A Pos SAFETRACE TX UNIT NUMBER [id number] SAFETRACE TX Status RETURNED FROM ISSUE SAFETRACE TX Blood Bank Product RED BLOOD CELLS SAFETRACE TX PRODUCT CODE [id number] SAFETRACE TX CROSSMATCH COMPATIBLE SAFETRACE TX Unit ABO A Pos SAFETRACE TX UNIT NUMBER [id number] SAFETRACE TX Status RETURNED FROM ISSUE SAFETRACE TX Blood Bank Product RED BLOOD CELLS SAFETRACE TX PRODUCT CODE [id number] SAFETRACE TX CROSSMATCH COMPATIBLE SAFETRACE TX Unit ABO A Pos SAFETRACE TX UNIT NUMBER [id number] SAFETRACE TX Status RETURNED FROM ISSUE SAFETRACE TX Blood Bank Product RED BLOOD CELLS SAFETRACE TX PRODUCT CODE [id number] SAFETRACE [place] Specimen Performing Organization Address [facility] Phone Number SAFETRACE TX POC ACTIVATED CLOTTING TIME (06/30/2018 12:52 AM CDT)Only the most recent of4 resultswithin the time period is included. Activated Clotting Time 147Comment: TESTED AT sec [address] [address] Specimen Blood Performing Organization Address [facility] Phone Number [address] [address] [phone] CENTER Potassium-Stat Lab (06/29/2018 11:07 PM CDT) Potassium 4.4 3.6 - 5.5 meq/L [facility] Specimen Blood, Arterial Performing Organization Address City/[facility] Phone Number [address] [address] CENTER Sodium Na-Stat Lab (06/29/2018 11:07 PM CDT) Sodium 137 135 - 148 meq/L [facility] Specimen Blood, Arterial Performing Organization Address [facility] Phone Number [address] [address] [place] Glucose-Stat Lab (06/29/2018 11:07 PM CDT) Glucose 97 70 - 110 mg/dL [facility] Specimen Blood, Arterial Performing Organization Address [facility] Phone Number [address] [address] CENTER HGB/HCT (H&H)-Stat Lab (06/29/2018 11:07 PM CDT) Hemoglobin 10.7 (L) 12.0 - 15.0 g/dL [facility] Hematocrit 31.0 (L) 36.0 - 45.0 % [facility] Specimen Blood, Arterial Performing Organization Address [facility] Phone Number [address] [address] [phone] CENTER Filter Ionized Calcium (06/29/2018 11:07 PM CDT) Filter Ionized Calcium 1.14 mmol/L [facility] Specimen Blood Narrative Performed At Reference Range: No Normals [facility] Performing Organization Address City/State/Zipcode Phone Number [facility] [address] [place] [address] CENTER [place] (06/29/2018 10:41 PM CDT) Narrative [...] Pre Intervention Summary: Post Intervention Summary: after 08/25/2017 Insurance Payer Benefit Plan / Subscriber ID Type Phone Address Group AET[employer] - AETNA MEDICARE xxxxxxxx [facility] [phone] [address] MEDICARE MGD O POS [id number] [place] [address] Advance Directives For more information, please contact:[address] [phone] Code Status Date Activated Date Inactivated Comments Full Code 06/29/2018 8:48 PM 07/22/2018 8:31 PM This code status was determined by: Patient Full Code 07/18/2017 10:01 AM 08/09/2017 4:37 PM This code status was determined by: Patient Full Code 06/11/2016 8:17 PM 06/15/2016 3:58 PM This code status was determined by: Patient
--- OUTSIDE RECORDS SUMMARY | 2018-08-26 21:37 | XMS REPORT ---
:1945 Author Organization [facility] Address [address] [place] [address] Dr. [address]es [address] [place] [address] Care Team Providers Name Role Phone DELILAH [...] (BEAKER) (test 221 mg/dL 70-110 TESTED AT [address] rhsh=9504) [facility] [address] POCT-GLUCOSE [id number] 09:00:00 Test Item Value Reference Range Comments POC-GLUCOSE METER (BEAKER) 135 mg/dL 70-110 TESTED AT [address] (test oyfn=1651) [facility] [address] RAD, CHEST, 1 VIEW, NON [id number] 08:57:00Reason for exam:->post opShould this be performed [...] MDRepcamilla Verified Date/Time: 07/22/2018 08:57:17 Reading Location: [address] Neuro Reading Room Electronicallysigned by: TREY ROBLES MD on 07/22/2018 08:57 [id number] 07:51:00 Test Item Value Reference Range Comments PHOSPHORUS (BEAKER) (test gfmc=223) 3.9 mg/dL 2.3-4.7 [id number] 07:51:00 Test Item Value Reference Range Comments MAGNESIUM (BEAKER) (test sabu=689) 1.7 mg/dL 1.6-2.6 BASIC METABOLIC [id number] 07:51:00 Test Item Value Reference Range Comments SODIUM (BEAKER) (test 139 meq/L 136-145 uifx=094) POTASSIUM (BEAKER) (test 4.4 meq/L 3.5-5.1 atxl=108) CHLORIDE (BEAKER) (test 102 meq/L 98-107 zcqx=191) CO2 (BEAKER) (test 30 meq/L 22-29 yfie=494) BLOOD UREA NITROGEN 23 mg/dL 7-21 (BEAKER) (test qysc=938) CREATININE (BEAKER) (test 1.40 mg/dL 0.57-1.25 wfui=855) GLUCOSE RANDOM (BEAKER) 139 mg/dL 70-105 (test koxy=888) CALCIUM (BEAKER) (test 8.8 mg/dL 8.4-10.2 arvn=353) EGFR (BEAKER) (test 45 mL/min/1.73 sq m ESTIMATED GFR IS NOT vfcl=9162) ACCURATE CREATININE CLEARANCE IN PREDICTING GLOMERULAR FILTRATION RATE. ESTIMATED GFR IS NOT APPLICABLE FOR DIALYSIS PATIENTS. [id number] 05:36:00 Test Item Value Reference Range Comments PARTIAL THROMBOPLASTIN TIME (BEAKER) (test 44.5 seconds 22.5-36.0 hyty=879) CBC (HEMOGRAM ONLY)2018-07-22 05:24:00 Test Item Value Reference Range Comments WHITE BLOOD CELL COUNT (BEAKER) (test xgrq=287) 6.6 K/ L 3.5-10.5 RED BLOOD CELL COUNT (BEAKER) (test ktdv=160) 2.45 M/ L 3.93-5.22 HEMOGLOBIN (BEAKER) (test shiq=476) 7.7 GM/DL 11.2-15.7 HEMATOCRIT (BEAKER) (test mnqf=503) 26.1 % 34.1-44.9 MEAN CORPUSCULAR VOLUME (BEAKER) (test mqcv=003) 106.5 fL 79.4-94.8 MEAN CORPUSCULAR HEMOGLOBIN (BEAKER) (test 31.4 pg 25.6-32.2 hwiv=609) MEAN CORPUSCULAR HEMOGLOBIN CONC (BEAKER) (test 29.5 GM/DL 32.2-35.5 vnwl=390) RED CELL DISTRIBUTION WIDTH (BEAKER) (test 18.0 % 11.7-14.4 zcnk=270) PLATELET COUNT (BEAKER) (test endq=927) 227 K/CU MM 150-450 MEAN PLATELET VOLUME (BEAKER) (test qwoq=597) 10.0 fL 9.4-12.3 NUCLEATED RED BLOOD CELLS (BEAKER) (test 0 /100 WBC 0-0 yupt=326) POCT-GLUCOSE [id number] 21:36:00 Test Item Value Reference Range Comments POC-GLUCOSE METER (BEAKER) 283 mg/dL 70-110 TESTED AT [address] (test ryyk=6473) [place] [id number] POCT-GLUCOSE [id number] 18:26:00 Test Item Value Reference Range Comments POC-GLUCOSE METER (BEAKER) 123 mg/dL 70-110 TESTED AT [address] (test huij=7529) [place] [address] POCT-GLUCOSE [id number] 14:04:00 Test Item Value Reference Range Comments POC-GLUCOSE METER (BEAKER) 152 mg/dL 70-110 TESTED AT [address] (test snwt=3675) [place] [address] POCT-GLUCOSE [id number] 12:52:00 Test Item Value Reference Range Comments POC-GLUCOSE METER (BEAKER) 228 mg/dL 70-110 TESTED AT [address] (test acum=8117) [facility] [address] RAD, CHEST, 1 VIEW, NON [id number] 09:40:00Reason for exam:->post opShould this be performed at the bedside?->YesFINAL REPORT Comparison: 07/20/2018 TECHNIQUE: Single view of the chest FINDINGS: There are nonspecific prominent interstitial markings bilaterally. Trace pleural effusions are seen. No gross new lung parenchymal changes. Cardiac silhouette is enlarged. Thoracic aortic stent grafts noted. Right-sided PICC line is stable. Signed: Olayinka Hampton MDReport Verified Date/Time: 07/21/2018 09: 40:18 Reading Location: [facility] Radiology Reading Room POCT-GLUCOSE [id number] 09:10: 00 Test Item Value Reference Range Comments POC-GLUCOSE METER (BEAKER) 239 mg/dL 70-110 TESTED AT [facility] [address] [facility] (test ayxt=6408) [facility] [address] [id number] 06:51:00 Test Item Value Reference Range Comments PHOSPHORUS (BEAKER) (test ngsq=589) 3.4 mg/dL 2.3-4.7 [id number] 06:51:00 Test Item Value Reference Range Comments MAGNESIUM (BEAKER) (test wxtc=770) 1.8 mg/dL 1.6-2.6 BASIC METABOLIC [id number] 06:51:00 Test Item Value Reference Range Comments SODIUM (BEAKER) (test 137 meq/L 136-145 zcfd=879) POTASSIUM (BEAKER) (test 4.4 meq/L 3.5-5.1 gbtp=718) CHLORIDE (BEAKER) (test 100 meq/L 98-107 xslg=402) CO2 (BEAKER) (test 31 meq/L 22-29 jdct=341) BLOOD UREA NITROGEN 23 mg/dL 7-21 (BEAKER) (test wwou=996) CREATININE (BEAKER) (test 1.40 mg/dL 0.57-1.25 ggfe=851) GLUCOSE RANDOM (BEAKER) 146 mg/dL 70-105 (test ogkw=250) CALCIUM (BEAKER) (test 9.2 mg/dL 8.4-10.2 ukpg=924) EGFR (BEAKER) (test 45 mL/min/1.73 sq m ESTIMATED GFR IS NOT kmrn=6101) ACCURATE CREATININE CLEARANCE IN PREDICTING GLOMERULAR FILTRATION RATE. ESTIMATED GFR IS NOT APPLICABLE FOR DIALYSIS PATIENTS. [id number] 06:47:00 Test Item Value Reference Range Comments PARTIAL THROMBOPLASTIN TIME (BEAKER) (test 51.7 seconds 22.5-36.0 tugw=645) CBC (HEMOGRAM ONLY)2018-07-21 06:28:00 Test Item Value Reference Range Comments WHITE BLOOD CELL COUNT (BEAKER) (test ezja=949) 5.4 K/ L 3.5-10.5 RED BLOOD CELL COUNT (BEAKER) (test ivhp=879) 2.66 M/ L 3.93-5.22 HEMOGLOBIN (BEAKER) (test pisq=566) 8.2 GM/DL 11.2-15.7 HEMATOCRIT (BEAKER) (test kcoe=103) 28.3 % 34.1-44.9 MEAN CORPUSCULAR VOLUME (BEAKER) (test egpc=951) 106.4 fL 79.4-94.8 MEAN CORPUSCULAR HEMOGLOBIN (BEAKER) (test 30.8 pg 25.6-32.2 kkmq=488) MEAN CORPUSCULAR HEMOGLOBIN CONC (BEAKER) (test 29.0 GM/DL 32.2-35.5 wiel=183) RED CELL DISTRIBUTION WIDTH (BEAKER) (test 18.3 % 11.7-14.4 laho=094) PLATELET COUNT (BEAKER) (test nrsc=317) 211 K/CU MM 150-450 MEAN PLATELET VOLUME (BEAKER) (test cmlk=106) 10.3 fL 9.4-12.3 NUCLEATED RED BLOOD CELLS (BEAKER) (test 0 /100 WBC 0-0 lrfy=887) POCT-GLUCOSE [id number] 21:18:00 Test Item Value Reference Range Comments POC-GLUCOSE METER (BEAKER) 245 mg/dL 70-110 TESTED AT [address] (test cwdp=0095) [facility] [address] POCT-GLUCOSE [id number] 18:12:00 Test Item Value Reference Range Comments POC-GLUCOSE METER (BEAKER) 158 mg/dL 70-110 TESTED AT [address] (test imho=5833) [facility] [address] POCT-GLUCOSE [id number] 12:46:00 Test Item Value Reference Range Comments POC-GLUCOSE METER (BEAKER) 178 mg/dL 70-110 TESTED AT [address] (test aatv=4653) [facility] [address] RAD, CHEST, 1 VIEW, NON [id number] 08:43:00Reason for exam:->post opShould this be performed at the bedside?->YesFINAL REPORT Chest one view. Clinical history: post op Comparison: 2018Discussion: A frontal chest is provided. Cardiomediastinal contours are unchanged. Lines and tubesare in stable position. Stable appearance of vascular congestion and interstitial edema. Small bilateral pleural effusions. No pneumothorax. Signed: Morgan Chengeport Verified Date/Time: 07/20/2018 08:43 :10 Reading Location: [facility] Radiology Reading Room POCT-GLUCOSE [id number] 08:05:00 Test Item Value Reference Range Comments POC-GLUCOSE METER (BEAKER) 114 mg/dL 70-110 TESTED AT [facility] [address] [facility] (test duzv=9296) [facility] [address] [id number] 06:55:00 Test Item Value Reference Range Comments PHOSPHORUS (BEAKER) (test wykh=481) 3.4 mg/dL 2.3-4.7 [id number] 06:55:00 Test Item Value Reference Range Comments MAGNESIUM (BEAKER) (test thpq=086) 1.5 mg/dL 1.6-2.6 BASIC METABOLIC [id number] 06:55:00 Test Item Value Reference Range Comments SODIUM (BEAKER) (test 137 meq/L 136-145 pzii=416) POTASSIUM (BEAKER) (test 4.4 meq/L 3.5-5.1 qzqi=810) CHLORIDE (BEAKER) (test 101 meq/L 98-107 gfun=332) CO2 (BEAKER) (test 27 meq/L 22-29 rsfv=847) BLOOD UREA NITROGEN 23 mg/dL 7-21 (BEAKER) (test iymy=064) CREATININE (BEAKER) (test 1.28 mg/dL 0.57-1.25 qbug=038) GLUCOSE RANDOM (BEAKER) 150 mg/dL 70-105 (test gabg=829) CALCIUM (BEAKER) (test 9.0 mg/dL 8.4-10.2 ymoz=552) EGFR (BEAKER) (test 50 mL/min/1.73 sq m ESTIMATED GFR IS NOT eywo=0349) ACCURATE CREATININE CLEARANCE IN PREDICTING GLOMERULAR FILTRATION RATE. ESTIMATED GFR IS NOT APPLICABLE FOR DIALYSIS PATIENTS. [id number] 06:28:00 Test Item Value Reference Range Comments PARTIAL THROMBOPLASTIN TIME (BEAKER) (test 44.5 seconds 22.5-36.0 wqib=607) CBC (HEMOGRAM ONLY)2018-07-20 06:19:00 Test Item Value Reference Range Comments WHITE BLOOD CELL COUNT (BEAKER) (test mthn=583) 5.5 K/ L 3.5-10.5 RED BLOOD CELL COUNT (BEAKER) (test eayi=213) 2.58 M/ L 3.93-5.22 HEMOGLOBIN (BEAKER) (test hntu=278) 7.9 GM/DL 11.2-15.7 HEMATOCRIT (BEAKER) (test zqiv=527) 27.1 % 34.1-44.9 MEAN CORPUSCULAR VOLUME (BEAKER) (test oqme=574) 105.0 fL 79.4-94.8 MEAN CORPUSCULAR HEMOGLOBIN (BEAKER) (test 30.6 pg 25.6-32.2 bscm=771) MEAN CORPUSCULAR HEMOGLOBIN CONC (BEAKER) (test 29.2 GM/DL 32.2-35.5 tlzm=002) RED CELL DISTRIBUTION WIDTH (BEAKER) (test 18.5 % 11.7-14.4 xxbk=406) PLATELET COUNT (BEAKER) (test zvin=661) 189 K/CU MM 150-450 MEAN PLATELET VOLUME (BEAKER) (test gpgd=057) 9.9 fL 9.4-12.3 NUCLEATED RED BLOOD CELLS (BEAKER) (test 0 /100 WBC 0-0 fmla=294) POCT-GLUCOSE [id number] 00:43:00 Test Item Value Reference Range Comments POC-GLUCOSE METER (BEAKER) 135 mg/dL 70-110 TESTED AT [address] (test hzke=1421) [facility] [address] POCT-GLUCOSE [id number] 21:19:00 Test Item Value Reference Range Comments POC-GLUCOSE METER (BEAKER) 284 mg/dL 70-110 TESTED AT [address] (test liqw=3323) [facility] [address] POCT-GLUCOSE [id number] 17:54:00 Test Item Value Reference Range Comments POC-GLUCOSE METER (BEAKER) 146 mg/dL 70-110 TESTED AT [facility] [address] [facility] (test tlqh=1802) [facility] [address] POCT-GLUCOSE [id number] 14:15:00 Test Item Value Reference Range Comments POC-GLUCOSE METER (BEAKER) 230 mg/dL 70-110 TESTED AT [place] [id number] [facility] (test ekgm=5311) [facility] [address] RAD, CHEST, 1 VIEW, NON [id number] 08:30:00Reason for exam:->post opShould this be performed [...] MDReport Verified Date/Time: 07/19/2018 08:30:21 Reading Location: [facility] Radiology Reading Room POCT-GLUCOSE [id number] 07:30:00 Test Item Value Reference Range Comments POC-GLUCOSE METER (BEAKER) 177 mg/dL 70-110 TESTED AT [facility] [address] [facility] (test yqtc=2186) [facility] [address] [id number] 05:20:00 Test Item Value Reference Range Comments PHOSPHORUS (BEAKER) (test sqjg=999) 3.5 mg/dL 2.3-4.7 [id number] 05:20:00 Test Item Value Reference Range Comments MAGNESIUM (BEAKER) (test nppk=701) 1.8 mg/dL 1.6-2.6 BASIC METABOLIC [id number] 05:20:00 Test Item Value Reference Range Comments SODIUM (BEAKER) (test 142 meq/L 136-145 prbw=739) POTASSIUM (BEAKER) (test 4.5 meq/L 3.5-5.1 mzds=618) CHLORIDE (BEAKER) (test 107 meq/L 98-107 vmbu=503) CO2 (BEAKER) (test 31 meq/L 22-29 apcu=707) BLOOD UREA NITROGEN 25 mg/dL 7-21 (BEAKER) (test zrcy=499) CREATININE (BEAKER) (test 1.35 mg/dL 0.57-1.25 xmdt=547) GLUCOSE RANDOM (BEAKER) 165 mg/dL 70-105 (test qjcs=251) CALCIUM (BEAKER) (test 9.1 mg/dL 8.4-10.2 veus=546) EGFR (BEAKER) (test 47 mL/min/1.73 sq m ESTIMATED GFR IS NOT zcwx=2569) ACCURATE CREATININE CLEARANCE IN PREDICTING GLOMERULAR FILTRATION RATE. ESTIMATED GFR IS NOT APPLICABLE FOR DIALYSIS PATIENTS. [id number] 05:17:00 Test Item Value Reference Range Comments PARTIAL THROMBOPLASTIN TIME (BEAKER) (test 44.9 seconds 22.5-36.0 pkut=531) PROTHROMBIN [id number] 05:16:00 Test Item Value Reference Range Comments PROTIME (BEAKER) (test juzp=052) 13.9 seconds 11.7-14.7 INR (BEAKER) (test xnbf=344) 1.1 <=5.9 RECOMMENDED COUMADIN/WARFARIN INR THERAPY RANGESSTANDARD DOSE: 2.0 - 3.0 Includes: PROPHYLAXIS forvenous thrombosis, systemic embolization; TREATMENT for venous thrombosis and/or pulmonary embolus.HIGH RISK: Target INR is 2.5-3.5 for patients with mechanical heart valves.CBC (HEMOGRAM ONLY)2018-07-19 05:02:00 Test Item Value Reference Range Comments WHITE BLOOD CELL COUNT (BEAKER) (test wenl=649) 6.3 K/ L 3.5-10.5 RED BLOOD CELL COUNT (BEAKER) (test cupl=568) 2.59 M/ L 3.93-5.22 HEMOGLOBIN (BEAKER) (test bzzu=133) 8.1 GM/DL 11.2-15.7 HEMATOCRIT (BEAKER) (test oczy=352) 27.6 % 34.1-44.9 MEAN CORPUSCULAR VOLUME (BEAKER) (test mtdf=380) 106.6 fL 79.4-94.8 MEAN CORPUSCULAR HEMOGLOBIN (BEAKER) (test 31.3 pg 25.6-32.2 gwjo=603) MEAN CORPUSCULAR HEMOGLOBIN CONC (BEAKER) (test 29.3 GM/DL 32.2-35.5 taeu=668) RED CELL DISTRIBUTION WIDTH (BEAKER) (test 18.6 % 11.7-14.4 qadc=705) PLATELET COUNT (BEAKER) (test blcz=816) 186 K/CU MM 150-450 MEAN PLATELET VOLUME (BEAKER) (test kywn=513) 9.7 fL 9.4-12.3 NUCLEATED RED BLOOD CELLS (BEAKER) (test 0 /100 WBC 0-0 jhpg=689) POCT-GLUCOSE [id number] 23:14:00 Test Item Value Reference Range Comments POC-GLUCOSE METER (BEAKER) 173 mg/dL 70-110 TESTED AT [address] (test uiml=3410) [place] [address] POCT-GLUCOSE [id number] 21:47:00 Test Item Value Reference Range Comments POC-GLUCOSE METER (BEAKER) 237 mg/dL 70-110 TESTED AT [address] (test lugd=6808) [place] [address] POCT-GLUCOSE [id number] 18:16:00 Test Item Value Reference Range Comments POC-GLUCOSE METER (BEAKER) 234 mg/dL 70-110 TESTED AT [address] (test koge=0835) [place] [address] POCT-GLUCOSE [id number] 08:34:00 Test Item Value Reference Range Comments POC-GLUCOSE METER (BEAKER) 127 mg/dL 70-110 TESTED AT [address] (test upyk=7268) [place] [address] RAD, CHEST, 1 VIEW, NON [id number] 08:16:00Reason for exam:->post opShould this be performed [...] MDReport Verified Date/Time: 07/18/2018 08:16:56 [facility] Reading [facility] 08: 16 AMCBC (HEMOGRAM ONLY)2018-07-18 04:48:00 Test Item Value Reference Range Comments WHITE BLOOD CELL COUNT (BEAKER) (test rmji=952) 7.8 K/ L 3.5-10.5 RED BLOOD CELL COUNT (BEAKER) (test bdcj=980) 2.64 M/ L 3.93-5.22 HEMOGLOBIN (BEAKER) (test cudu=899) 8.1 GM/DL 11.2-15.7 HEMATOCRIT (BEAKER) (test pqsf=375) 28.1 % 34.1-44.9 MEAN CORPUSCULAR VOLUME (BEAKER) (test jipv=832) 106.4 fL 79.4-94.8 MEAN CORPUSCULAR HEMOGLOBIN (BEAKER) (test 30.7 pg 25.6-32.2 ptjj=106) MEAN CORPUSCULAR HEMOGLOBIN CONC (BEAKER) (test 28.8 GM/DL 32.2-35.5 widk=792) RED CELL DISTRIBUTION WIDTH (BEAKER) (test 18.9 % 11.7-14.4 wibg=676) PLATELET COUNT (BEAKER) (test zulk=847) 197 K/CU MM 150-450 MEAN PLATELET VOLUME (BEAKER) (test aakf=852) 10.2 fL 9.4-12.3 NUCLEATED RED BLOOD CELLS (BEAKER) (test 0 /100 WBC 0-0 ccvi=619) [id number] 04:40:00 Test Item Value Reference Range Comments PHOSPHORUS (BEAKER) (test kygd=748) 3.6 mg/dL 2.3-4.7 [id number] 04:40:00 Test Item Value Reference Range Comments MAGNESIUM (BEAKER) (test poxu=879) 1.8 mg/dL 1.6-2.6 BASIC METABOLIC [id number] 04:40:00 Test Item Value Reference Range Comments SODIUM (BEAKER) (test 140 meq/L 136-145 bfym=864) POTASSIUM (BEAKER) (test 4.5 meq/L 3.5-5.1 jutb=986) CHLORIDE (BEAKER) (test 106 meq/L 98-107 cftz=877) CO2 (BEAKER) (test 26 meq/L 22-29 ksuv=620) BLOOD UREA NITROGEN 23 mg/dL 7-21 (BEAKER) (test poqu=177) CREATININE (BEAKER) (test 1.34 mg/dL 0.57-1.25 mrvx=966) GLUCOSE RANDOM (BEAKER) 105 mg/dL 70-105 (test ofsj=902) CALCIUM (BEAKER) (test 9.1 mg/dL 8.4-10.2 uhrf=957) EGFR (BEAKER) (test 47 mL/min/1.73 sq m ESTIMATED GFR IS NOT uzvg=9787) ACCURATE CREATININE CLEARANCE IN PREDICTING GLOMERULAR FILTRATION RATE. ESTIMATED GFR IS NOT APPLICABLE FOR DIALYSIS PATIENTS. [id number] 04:22:00 Test Item Value Reference Range Comments PARTIAL THROMBOPLASTIN TIME (BEAKER) (test 56.8 seconds 22.5-36.0 vfnz=763) PROTHROMBIN [id number] 04:20:00 Test Item Value Reference Range Comments PROTIME (BEAKER) (test xjir=225) 13.9 seconds 11.7-14.7 INR (BEAKER) (test mved=416) 1.0 <=5.9 RECOMMENDED COUMADIN/WARFARIN INR THERAPY RANGESSTANDARD DOSE: 2.0 - 3.0 Includes: PROPHYLAXIS forvenous thrombosis, systemic embolization; TREATMENT for venous thrombosis and/or pulmonary embolus.HIGH RISK: Target INR is 2.5-3.5 for patients with mechanical heart valves.POCT-GLUCOSE [id number] 20:54:00 Test Item Value Reference Range Comments POC-GLUCOSE METER (BEAKER) 311 mg/dL 70-110 Patient on insulin Drip/TESTED (test ijvw=1595) AT [place] [id number] [facility] [address] POCT-GLUCOSE [id number] 18:21:00 Test Item Value Reference Range Comments POC-GLUCOSE METER (BEAKER) 186 mg/dL 70-110 TESTED AT [address] (test rkxr=9988) [facility] [address] POCT-GLUCOSE [id number] 13:16:00 Test Item Value Reference Range Comments POC-GLUCOSE METER (BEAKER) 153 mg/dL 70-110 TESTED AT [address] (test ykep=8657) [facility] [address] POCT-GLUCOSE [id number] 09:26:00 Test Item Value Reference Range Comments POC-GLUCOSE METER (BEAKER) 128 mg/dL 70-110 TESTED AT [facility] [address] [facility] (test hctw=9085) [facility] [address] RAD, CHEST, 1 VIEW, NON [id number] 07:39:00Reason for exam:->post opShould this be performed [...] Sam Verified Date/Time: 2018 07:39:00 Reading Location: [facility] Radiology Reading Room Electronically signed by: AZUL SAM M.D.on 07/17/2018 07:39 [id number] 06:22:00 Test Item Value Reference Range Comments PHOSPHORUS (BEAKER) (test togz=700) 3.6 mg/dL 2.3-4.7 [id number] 06:22:00 Test Item Value Reference Range Comments MAGNESIUM (BEAKER) (test iqmv=930) 1.9 mg/dL 1.6-2.6 BASIC METABOLIC [id number] 06:22:00 Test Item Value Reference Range Comments SODIUM (BEAKER) (test 142 meq/L 136-145 ogru=841) POTASSIUM (BEAKER) (test 4.6 meq/L 3.5-5.1 yyfc=419) CHLORIDE (BEAKER) (test 106 meq/L 98-107 osxb=284) CO2 (BEAKER) (test 30 meq/L 22-29 admz=426) BLOOD UREA NITROGEN 23 mg/dL 7-21 (BEAKER) (test xhvh=109) CREATININE (BEAKER) (test 1.31 mg/dL 0.57-1.25 snlg=839) GLUCOSE RANDOM (BEAKER) 88 mg/dL 70-105 (test pelq=953) CALCIUM (BEAKER) (test 8.9 mg/dL 8.4-10.2 fyry=389) EGFR (BEAKER) (test 49 mL/min/1.73 sq m ESTIMATED GFR IS NOT yrvv=3078) ACCURATE CREATININE CLEARANCE IN PREDICTING GLOMERULAR FILTRATION RATE. ESTIMATED GFR IS NOT APPLICABLE FOR DIALYSIS PATIENTS. [id number] 05:10:00 Test Item Value Reference Range Comments PARTIAL THROMBOPLASTIN TIME (BEAKER) (test 52.0 seconds 22.5-36.0 stjx=713) PROTHROMBIN [id number] 05:09:00 Test Item Value Reference Range Comments PROTIME (BEAKER) (test vont=191) 14.3 seconds 11.7-14.7 INR (BEAKER) (test aeqw=326) 1.1 <=5.9 RECOMMENDED COUMADIN/WARFARIN INR THERAPY RANGESSTANDARD DOSE: 2.0 - 3.0 Includes: PROPHYLAXIS forvenous thrombosis, systemic embolization; TREATMENT for venous thrombosis and/or pulmonary embolus.HIGH RISK: Target INR is 2.5-3.5 for patients with mechanical heart valves.CBC (HEMOGRAM ONLY)2018-07-17 04:55:00 Test Item Value Reference Range Comments WHITE BLOOD CELL COUNT (BEAKER) (test wunw=188) 7.5 K/ L 3.5-10.5 RED BLOOD CELL COUNT (BEAKER) (test jjwd=159) 2.63 M/ L 3.93-5.22 HEMOGLOBIN (BEAKER) (test lanv=516) 8.1 GM/DL 11.2-15.7 HEMATOCRIT (BEAKER) (test kceh=366) 27.7 % 34.1-44.9 MEAN CORPUSCULAR VOLUME (BEAKER) (test yigi=075) 105.3 fL 79.4-94.8 MEAN CORPUSCULAR HEMOGLOBIN (BEAKER) (test 30.8 pg 25.6-32.2 wger=478) MEAN CORPUSCULAR HEMOGLOBIN CONC (BEAKER) (test 29.2 GM/DL 32.2-35.5 bkzt=573) RED CELL DISTRIBUTION WIDTH (BEAKER) (test 18.9 % 11.7-14.4 nmyz=220) PLATELET COUNT (BEAKER) (test tqyt=579) 215 K/CU MM 150-450 MEAN PLATELET VOLUME (BEAKER) (test iyeo=998) 10.2 fL 9.4-12.3 NUCLEATED RED BLOOD CELLS (BEAKER) (test 0 /100 WBC 0-0 dwgh=113) POCT-GLUCOSE [id number] 21:30:00 Test Item Value Reference Range Comments POC-GLUCOSE METER (BEAKER) 217 mg/dL 70-110 TESTED AT [address] (test zsmx=2135) [place] [id number] POCT-GLUCOSE [id number] 18:00:00 Test Item Value Reference Range Comments POC-GLUCOSE METER (BEAKER) 192 mg/dL 70-110 TESTED AT [address] (test aknx=6526) [place] [id number] POCT-GLUCOSE [id number] 14:32:00 Test Item Value Reference Range Comments POC-GLUCOSE METER (BEAKER) 203 mg/dL 70-110 TESTED AT [address] (test bqdg=7855) [place] [id number] POCT-GLUCOSE [id number] 09:41:00 Test Item Value Reference Range Comments POC-GLUCOSE METER (BEAKER) 113 mg/dL 70-110 TESTED AT [address] (test bpra=9303) [place] [id number] 08:49:00 Test Item Value Reference Range Comments PHOSPHORUS (BEAKER) (test epok=652) 3.9 mg/dL 2.3-4.7 [id number] 08:49:00 Test Item Value Reference Range Comments MAGNESIUM (BEAKER) (test xmye=400) 2.0 mg/dL 1.6-2.6 BASIC METABOLIC [id number] 08:49:00 Test Item Value Reference Range Comments SODIUM (BEAKER) (test 142 meq/L 136-145 rtvf=667) POTASSIUM (BEAKER) (test 4.5 meq/L 3.5-5.1 viym=342) CHLORIDE (BEAKER) (test 105 meq/L 98-107 rthp=126) CO2 (BEAKER) (test 30 meq/L 22-29 cpde=171) BLOOD UREA NITROGEN 24 mg/dL 7-21 (BEAKER) (test blhi=408) CREATININE (BEAKER) (test 1.25 mg/dL 0.57-1.25 yldi=731) GLUCOSE RANDOM (BEAKER) 80 mg/dL 70-105 (test bgwf=245) CALCIUM (BEAKER) (test 8.8 mg/dL 8.4-10.2 rytb=449) EGFR (BEAKER) (test 51 mL/min/1.73 sq m ESTIMATED GFR IS NOT eklw=9151) ACCURATE CREATININE CLEARANCE IN PREDICTING GLOMERULAR FILTRATION RATE. ESTIMATED GFR IS NOT APPLICABLE FOR DIALYSIS PATIENTS. RAD, CHEST, 1 VIEW, NON [id number] 08:09:00Reason for exam:->post opShould this be performed [...] Lopez Verified Date/Time: 07/16/2018 08:09:34 Reading Location: [address] Body Reading Room 08: 09 AMPROTHROMBIN [id number] 05:46:00 Test Item Value Reference Range Comments PROTIME (BEAKER) (test fria=394) 14.0 seconds 11.7-14.7 INR (BEAKER) (test xwos=581) 1.1 <=5.9 RECOMMENDED COUMADIN/WARFARIN INR THERAPY RANGESSTANDARD DOSE: 2.0 - 3.0 Includes: PROPHYLAXIS forvenous thrombosis, systemic embolization; TREATMENT for venous thrombosis and/or pulmonary embolus.HIGH RISK: Target INR is 2.5-3.5 for patients with mechanical heart valves.[id number] 05:46:00 Test Item Value Reference Range Comments PARTIAL THROMBOPLASTIN TIME (BEAKER) (test 54.5 seconds 22.5-36.0 ygjs=708) CBC (HEMOGRAM ONLY)2018-07-16 05:33:00 Test Item Value Reference Range Comments WHITE BLOOD CELL COUNT (BEAKER) (test axph=156) 6.6 K/ L 3.5-10.5 RED BLOOD CELL COUNT (BEAKER) (test bjik=647) 2.75 M/ L 3.93-5.22 HEMOGLOBIN (BEAKER) (test xxfb=135) 8.5 GM/DL 11.2-15.7 HEMATOCRIT (BEAKER) (test eydj=401) 28.5 % 34.1-44.9 MEAN CORPUSCULAR VOLUME (BEAKER) (test hzkr=744) 103.6 fL 79.4-94.8 MEAN CORPUSCULAR HEMOGLOBIN (BEAKER) (test 30.9 pg 25.6-32.2 bpas=850) MEAN CORPUSCULAR HEMOGLOBIN CONC (BEAKER) (test 29.8 GM/DL 32.2-35.5 apnk=171) RED CELL DISTRIBUTION WIDTH (BEAKER) (test 19.1 % 11.7-14.4 acgd=495) PLATELET COUNT (BEAKER) (test ffqx=481) 240 K/CU MM 150-450 MEAN PLATELET VOLUME (BEAKER) (test pkuf=035) 10.1 fL 9.4-12.3 NUCLEATED RED BLOOD CELLS (BEAKER) (test 0 /100 WBC 0-0 xwcq=277) POCT-GLUCOSE [id number] 21:14:00 Test Item Value Reference Range Comments POC-GLUCOSE METER (BEAKER) 152 mg/dL 70-110 TESTED AT [address] (test mqhg=1861) [facility] [id number] POCT-GLUCOSE [id number] 19:03:00 Test Item Value Reference Range Comments POC-GLUCOSE METER (BEAKER) 173 mg/dL 70-110 TESTED AT [address] (test intg=2754) [facility] [id number] POCT-GLUCOSE [id number] 13:33:00 Test Item Value Reference Range Comments POC-GLUCOSE METER (BEAKER) 274 mg/dL 70-110 TESTED AT [address] (test kxmd=3860) [facility] [address] POCT-GLUCOSE [id number] 10:28:00 Test Item Value Reference Range Comments POC-GLUCOSE METER (BEAKER) 131 mg/dL 70-110 TESTED AT [place] [id number] [facility] (test mkfd=5181) [facility] [address] POCT-GLUCOSE [id number] 06:41:00 Test Item Value Reference Range Comments POC-GLUCOSE METER (BEAKER) 152 mg/dL 70-110 TESTED AT [place] [id number] [facility] (test tdik=4409) [facility] [address] [id number] 04:02:00 Test Item Value Reference Range Comments PHOSPHORUS (BEAKER) (test rnyc=928) 3.6 mg/dL 2.3-4.7 [id number] 04:02:00 Test Item Value Reference Range Comments MAGNESIUM (BEAKER) (test ytvi=319) 2.1 mg/dL 1.6-2.6 BASIC METABOLIC [id number] 04:02:00 Test Item Value Reference Range Comments SODIUM (BEAKER) (test 135 meq/L 136-145 pefp=244) POTASSIUM (BEAKER) (test 4.6 meq/L 3.5-5.1 ndln=609) CHLORIDE (BEAKER) (test 101 meq/L 98-107 mjve=241) CO2 (BEAKER) (test 27 meq/L 22-29 puql=611) BLOOD UREA NITROGEN 23 mg/dL 7-21 (BEAKER) (test nhab=265) CREATININE (BEAKER) (test 1.37 mg/dL 0.57-1.25 dpay=646) GLUCOSE RANDOM (BEAKER) 187 mg/dL 70-105 (test bvfw=482) CALCIUM (BEAKER) (test 8.4 mg/dL 8.4-10.2 tvsk=940) EGFR (BEAKER) (test 46 mL/min/1.73 sq m ESTIMATED GFR IS NOT kzsg=6033) ACCURATE CREATININE CLEARANCE IN PREDICTING GLOMERULAR FILTRATION RATE. ESTIMATED GFR IS NOT APPLICABLE FOR DIALYSIS PATIENTS. [id number] 03:57:00 Test Item Value Reference Range Comments PARTIAL THROMBOPLASTIN TIME (BEAKER) (test 44.5 seconds 22.5-36.0 mzfe=127) PROTHROMBIN [id number] 03:56:00 Test Item Value Reference Range Comments PROTIME (BEAKER) (test nwsw=566) 13.4 seconds 11.7-14.7 INR (BEAKER) (test nnuk=819) 1.0 <=5.9 RECOMMENDED COUMADIN/WARFARIN INR THERAPY RANGESSTANDARD DOSE: 2.0 - 3.0 Includes: PROPHYLAXIS forvenous thrombosis, systemic embolization; TREATMENT for venous thrombosis and/or pulmonary embolus.HIGH RISK: Target INR is 2.5-3.5 for patients with mechanical heart valves.RAD, CHEST, 1 VIEW, NON [id number] 03:40:00Reason for exam:->post opShould this be [...] MDReport Verified Date/Time: 07/15/2018 03:40:13 Reading Location: [address] Neuro Reading Room 03: 40 [facility]2018-07-15 03:33:00 Test Item Value Reference Range Comments WHITE BLOOD CELL COUNT (BEAKER) (test mfpj=428) 7.2 K/ L 3.5-10.5 RED BLOOD CELL COUNT (BEAKER) (test tkjz=568) 2.91 M/ L 3.93-5.22 HEMOGLOBIN (BEAKER) (test bcms=774) 8.9 GM/DL 11.2-15.7 HEMATOCRIT (BEAKER) (test svbv=659) 30.2 % 34.1-44.9 MEAN CORPUSCULAR VOLUME (BEAKER) (test efbp=554) 103.8 fL 79.4-94.8 MEAN CORPUSCULAR HEMOGLOBIN (BEAKER) (test 30.6 pg 25.6-32.2 szjt=914) MEAN CORPUSCULAR HEMOGLOBIN CONC (BEAKER) (test 29.5 GM/DL 32.2-35.5 dqww=607) RED CELL DISTRIBUTION WIDTH (BEAKER) (test 19.2 % 11.7-14.4 cvav=032) PLATELET COUNT (BEAKER) (test kzxo=838) 217 K/CU MM 150-450 MEAN PLATELET VOLUME (BEAKER) (test yuyb=812) 9.8 fL 9.4-12.3 NUCLEATED RED BLOOD CELLS (BEAKER) (test 0 /100 WBC 0-0 jjzq=486) POCT-GLUCOSE [id number] 21:46:00 Test Item Value Reference Range Comments POC-GLUCOSE METER (BEAKER) 263 mg/dL 70-110 TESTED AT [address] (test tfqe=3552) [facility] [address] POCT-GLUCOSE [id number] 19:03:00 Test Item Value Reference Range Comments POC-GLUCOSE METER (BEAKER) 178 mg/dL 70-110 TESTED AT [address] (test yfyn=2046) [facility] [address] POCT-GLUCOSE [id number] 17:02:00 Test Item Value Reference Range Comments POC-GLUCOSE METER (BEAKER) 126 mg/dL 70-110 TESTED AT [address] (test bpby=8083) [facility] [address] POCT-GLUCOSE [id number] 11:34:00 Test Item Value Reference Range Comments POC-GLUCOSE METER (BEAKER) 202 mg/dL 70-110 TESTED AT [address] (test amxt=7476) [facility] [address] RAD, CHEST, 1 VIEW, NON [id number] 05:46:00Reason for exam:->post opShould this be performed [...] Robles Verified Date/Time: 07/14/2018 05:46:57 Reading Location: [address] Neuro Reading Room [id number] 04:03:00 Test Item Value Reference Range Comments MAGNESIUM (BEAKER) (test 2.2 mg/dL 1.6-2.6 Specimen slightly hemolyzed zqiy=955) [id number] 04:03:00 Test Item Value Reference Range Comments PHOSPHORUS (BEAKER) (test 2.9 mg/dL 2.3-4.7 Specimen slightly hemolyzed blzu=089) BASIC METABOLIC [id number] 04:03:00 Test Item Value Reference Range Comments SODIUM (BEAKER) (test 138 meq/L 136-145 uoax=271) POTASSIUM (BEAKER) (test 5.0 meq/L 3.5-5.1 Specimen slightly ynpg=069) hemolyzed CHLORIDE (BEAKER) (test 103 meq/L 98-107 eynm=618) CO2 (BEAKER) (test 29 meq/L 22-29 bxgd=480) BLOOD UREA NITROGEN 23 mg/dL 7-21 (BEAKER) (test kduk=605) CREATININE (BEAKER) (test 1.41 mg/dL 0.57-1.25 Specimen slightly mcxp=013) hemolyzed GLUCOSE RANDOM (BEAKER) 144 mg/dL 70-105 (test ovdl=168) CALCIUM (BEAKER) (test 9.1 mg/dL 8.4-10.2 zvil=480) EGFR (BEAKER) (test 45 mL/min/1.73 sq m ESTIMATED GFR IS NOT paqa=3390) ACCURATE CREATININE CLEARANCE IN PREDICTING GLOMERULAR FILTRATION RATE. ESTIMATED GFR IS NOT APPLICABLE FOR DIALYSIS PATIENTS. [id number] 03:49:00 Test Item Value Reference Range Comments PARTIAL THROMBOPLASTIN TIME (BEAKER) (test 42.0 seconds 22.5-36.0 zbfu=349) PROTHROMBIN [id number] 03:48:00 Test Item Value Reference Range Comments PROTIME (BEAKER) (test wpsc=496) 14.1 seconds 11.7-14.7 INR (BEAKER) (test nidh=442) 1.1 <=5.9 RECOMMENDED COUMADIN/WARFARIN INR THERAPY RANGESSTANDARD DOSE: 2.0 - 3.0 Includes: PROPHYLAXIS forvenous thrombosis, systemic embolization; TREATMENT for venous thrombosis and/or pulmonary embolus.HIGH RISK: Target INR is 2.5-3.5 for patients with mechanical heart valves.CBC (HEMOGRAM ONLY)2018-07-14 03:38:00 Test Item Value Reference Range Comments WHITE BLOOD CELL COUNT (BEAKER) (test qzpe=537) 8.1 K/ L 3.5-10.5 RED BLOOD CELL COUNT (BEAKER) (test psyd=833) 2.93 M/ L 3.93-5.22 HEMOGLOBIN (BEAKER) (test nncb=155) 9.0 GM/DL 11.2-15.7 HEMATOCRIT (BEAKER) (test ujib=009) 30.6 % 34.1-44.9 MEAN CORPUSCULAR VOLUME (BEAKER) (test wsou=648) 104.4 fL 79.4-94.8 MEAN CORPUSCULAR HEMOGLOBIN (BEAKER) (test 30.7 pg 25.6-32.2 qzbn=669) MEAN CORPUSCULAR HEMOGLOBIN CONC (BEAKER) (test 29.4 GM/DL 32.2-35.5 zbxx=355) RED CELL DISTRIBUTION WIDTH (BEAKER) (test 19.6 % 11.7-14.4 puru=282) PLATELET COUNT (BEAKER) (test uior=648) 252 K/CU MM 150-450 MEAN PLATELET VOLUME (BEAKER) (test tpem=525) 9.7 fL 9.4-12.3 NUCLEATED RED BLOOD CELLS (BEAKER) (test 0 /100 WBC 0-0 bkgi=378) POCT-GLUCOSE [id number] 21:17:00 Test Item Value Reference Range Comments POC-GLUCOSE METER (BEAKER) 168 mg/dL 70-110 TESTED AT [address] (test vxgx=9740) [place] [id number] POCT-GLUCOSE [id number] 16:32:00 Test Item Value Reference Range Comments POC-GLUCOSE METER (BEAKER) 267 mg/dL 70-110 TESTED AT [address] (test bywx=9180) [place] [address] POCT-GLUCOSE [id number] 12:30:00 Test Item Value Reference Range Comments POC-GLUCOSE METER (BEAKER) 213 mg/dL 70-110 TESTED AT [address] (test jsgd=6377) [place] [address] RAD, CHEST, 1 VIEW, NON [id number] 09:17:00Reason for exam:->post opShould this be performed [...] Mckeon Verified Date/Time: 07/13/2018 09:17:51 Reading Location: [facility] Radiology ReadingRoom 09 :17 AMDIGOXIN [id number] 09:01:00 Test Item Value Reference Range Comments DIGOXIN LEVEL (BEAKER) (test ljmd=222) 0.8 ng/mL 0.8-2.0 Draw before next dose of DigoxinPOCT-GLUCOSE [id number] 08:47:00 Test Item Value Reference Range Comments POC-GLUCOSE METER (BEAKER) 240 mg/dL 70-110 TESTED AT [facility] [address] [place] [address] (test yqhq=3669) [facility] [address] [id number] 04:08:00 Test Item Value Reference Range Comments PHOSPHORUS (BEAKER) (test svyf=458) 3.5 mg/dL 2.3-4.7 [id number] 04:08:00 Test Item Value Reference Range Comments MAGNESIUM (BEAKER) (test jeqk=332) 2.1 mg/dL 1.6-2.6 BASIC METABOLIC [id number] 04:08:00 Test Item Value Reference Range Comments SODIUM (BEAKER) (test 140 meq/L 136-145 ajja=900) POTASSIUM (BEAKER) (test 4.8 meq/L 3.5-5.1 wowq=280) CHLORIDE (BEAKER) (test 105 meq/L 98-107 hyap=687) CO2 (BEAKER) (test 28 meq/L 22-29 zksi=324) BLOOD UREA NITROGEN 21 mg/dL 7-21 (BEAKER) (test uoos=142) CREATININE (BEAKER) (test 1.33 mg/dL 0.57-1.25 bqvu=881) GLUCOSE RANDOM (BEAKER) 123 mg/dL 70-105 (test gmgw=853) CALCIUM (BEAKER) (test 8.8 mg/dL 8.4-10.2 yvbi=509) EGFR (BEAKER) (test 48 mL/min/1.73 sq m ESTIMATED GFR IS NOT hlll=1937) ACCURATE CREATININE CLEARANCE IN PREDICTING GLOMERULAR FILTRATION RATE. ESTIMATED GFR IS NOT APPLICABLE FOR DIALYSIS PATIENTS. [id number] 03:51:00 Test Item Value Reference Range Comments PARTIAL THROMBOPLASTIN TIME (BEAKER) (test 43.3 seconds 22.5-36.0 dijz=559) PROTHROMBIN TIME/[id number] 03:50:00 Test Item Value Reference Range Comments PROTIME (BEAKER) (test eaix=762) 13.7 seconds 11.7-14.7 INR (BEAKER) (test zhpo=673) 1.0 <=5.9 RECOMMENDED COUMADIN/WARFARIN INR THERAPY RANGESSTANDARD DOSE: 2.0 - 3.0 Includes: PROPHYLAXIS forvenous thrombosis, systemic embolization; TREATMENT for venous thrombosis and/or pulmonary embolus.HIGH RISK: Target INR is 2.5-3.5 for patients with mechanical heart valves.CBC (HEMOGRAM ONLY)2018-07-13 03:24:00 Test Item Value Reference Range Comments WHITE BLOOD CELL COUNT (BEAKER) (test amkl=534) 7.5 K/ L 3.5-10.5 RED BLOOD CELL COUNT (BEAKER) (test uedw=159) 2.94 M/ L 3.93-5.22 HEMOGLOBIN (BEAKER) (test yaxw=270) 9.1 GM/DL 11.2-15.7 HEMATOCRIT (BEAKER) (test kyiq=622) 30.9 % 34.1-44.9 MEAN CORPUSCULAR VOLUME (BEAKER) (test tfin=695) 105.1 fL 79.4-94.8 MEAN CORPUSCULAR HEMOGLOBIN (BEAKER) (test 31.0 pg 25.6-32.2 yygi=887) MEAN CORPUSCULAR HEMOGLOBIN CONC (BEAKER) (test 29.4 GM/DL 32.2-35.5 qete=128) RED CELL DISTRIBUTION WIDTH (BEAKER) (test 19.8 % 11.7-14.4 gdqf=581) PLATELET COUNT (BEAKER) (test jwdb=602) 259 K/CU MM 150-450 MEAN PLATELET VOLUME (BEAKER) (test imnp=345) 9.7 fL 9.4-12.3 NUCLEATED RED BLOOD CELLS (BEAKER) (test 0 /100 WBC 0-0 bmlr=565) POCT-GLUCOSE [id number] 22:41:00 Test Item Value Reference Range Comments POC-GLUCOSE METER (BEAKER) 230 mg/dL 70-110 TESTED AT [address] (test ezfd=9390) [place] [id number] POCT-GLUCOSE [id number] 18:56:00 Test Item Value Reference Range Comments POC-GLUCOSE METER (BEAKER) 98 mg/dL 70-110 TESTED AT [address] (test ydsg=1441) [facility] [address] POCT-GLUCOSE [id number] 12:04:00 Test Item Value Reference Range Comments POC-GLUCOSE METER (BEAKER) 169 mg/dL 70-110 TESTED AT [address] (test urhi=0976) [facility] [address] POCT-GLUCOSE [id number] 09:50:00 Test Item Value Reference Range Comments POC-GLUCOSE METER (BEAKER) 260 mg/dL 70-110 TESTED AT [address] (test snqw=7092) [facility] [address] RAD, CHEST, 1 VIEW, NON [id number] 07:18:00Reason for exam:->post opShould this be performed at the bedside?->YesFINAL REPORT AP chest HISTORY: Postoperative. COMPARISON: 07/11/2018. IMPRESSION: Central line unchanged. Cardiomegaly. Thoracic aortic stent graft. Coarse interstitial markings similar to previous. Question developing right basilar atelectasis. No pneumothorax. Signed: Mitchel Jarquin MDReport Verified Date/ Time: 07/12/2018 07:18:25 Reading Location: [facility] Reading Room 07: 18 AMPOCT-GLUCOSE [id number] 06:54:00 Test Item Value Reference Range Comments POC-GLUCOSE METER (BEAKER) 193 mg/dL 70-110 TESTED AT [facility] [address] (test ytul=1447) [place] [address] [id number] 04:51:00 Test Item Value Reference Range Comments PARTIAL THROMBOPLASTIN TIME (BEAKER) (test 42.6 seconds 22.5-36.0 kdfl=453) PROTHROMBIN TIME/[id number] 04:42:00 Test Item Value Reference Range Comments PROTIME (BEAKER) (test xxss=481) 13.7 seconds 11.7-14.7 INR (BEAKER) (test kqzs=307) 1.0 <=5.9 RECOMMENDED COUMADIN/WARFARIN INR THERAPY RANGESSTANDARD DOSE: 2.0 - 3.0 Includes: PROPHYLAXIS forvenous thrombosis, systemic embolization; TREATMENT for venous thrombosis and/or pulmonary embolus.HIGH RISK: Target INR is 2.5-3.5 for patients with mechanical heart valves.[id number] 04:31:00 Test Item Value Reference Range Comments PHOSPHORUS (BEAKER) (test ufkj=578) 2.4 mg/dL 2.3-4.7 [id number] 04:31:00 Test Item Value Reference Range Comments MAGNESIUM (BEAKER) (test cdas=582) 2.3 mg/dL 1.6-2.6 BASIC METABOLIC [id number] 04:31:00 Test Item Value Reference Range Comments SODIUM (BEAKER) (test 141 meq/L 136-145 gyeo=407) POTASSIUM (BEAKER) (test 4.5 meq/L 3.5-5.1 voom=930) CHLORIDE (BEAKER) (test 106 meq/L 98-107 ncby=238) CO2 (BEAKER) (test 31 meq/L 22-29 rzmk=651) BLOOD UREA NITROGEN 26 mg/dL 7-21 (BEAKER) (test pygg=949) CREATININE (BEAKER) (test 1.41 mg/dL 0.57-1.25 scla=891) GLUCOSE RANDOM (BEAKER) 63 mg/dL 70-105 (test vsnh=142) CALCIUM (BEAKER) (test 8.7 mg/dL 8.4-10.2 kjix=902) EGFR (BEAKER) (test 45 mL/min/1.73 sq m ESTIMATED GFR IS NOT ncgt=8936) ACCURATE CREATININE CLEARANCE IN PREDICTING GLOMERULAR FILTRATION RATE. ESTIMATED GFR IS NOT APPLICABLE FOR DIALYSIS PATIENTS. CBC (HEMOGRAM ONLY)2018-07-12 04:23:00 Test Item Value Reference Range Comments WHITE BLOOD CELL COUNT (BEAKER) (test pkyu=538) 7.0 K/ L 3.5-10.5 RED BLOOD CELL COUNT (BEAKER) (test alev=916) 2.79 M/ L 3.93-5.22 HEMOGLOBIN (BEAKER) (test pyum=622) 8.6 GM/DL 11.2-15.7 HEMATOCRIT (BEAKER) (test hsnc=265) 28.3 % 34.1-44.9 MEAN CORPUSCULAR VOLUME (BEAKER) (test hjvg=447) 101.4 fL 79.4-94.8 MEAN CORPUSCULAR HEMOGLOBIN (BEAKER) (test 30.8 pg 25.6-32.2 vecl=273) MEAN CORPUSCULAR HEMOGLOBIN CONC (BEAKER) (test 30.4 GM/DL 32.2-35.5 udch=901) RED CELL DISTRIBUTION WIDTH (BEAKER) (test 20.2 % 11.7-14.4 qgfx=113) PLATELET COUNT (BEAKER) (test ntwo=742) 276 K/CU MM 150-450 MEAN PLATELET VOLUME (BEAKER) (test fvgc=283) 10.3 fL 9.4-12.3 NUCLEATED RED BLOOD CELLS (BEAKER) (test 0 /100 WBC 0-0 vxcx=790) POCT-GLUCOSE [id number] 00:19:00 Test Item Value Reference Range Comments POC-GLUCOSE METER (BEAKER) 404 mg/dL 70-110 TESTED AT [address] (test nevb=5231) [facility] [address] POCT-GLUCOSE [id number] 18:10:00 Test Item Value Reference Range Comments POC-GLUCOSE METER (BEAKER) 268 mg/dL 70-110 TESTED AT [address] (test pawf=6584) [facility] [address] POCT-GLUCOSE [id number] 12:22:00 Test Item Value Reference Range Comments POC-GLUCOSE METER (BEAKER) 221 mg/dL 70-110 TESTED AT [place] [id number] [facility] (test hjif=2160) [facility] [address] RAD, CHEST, 1 VIEW, NON [id number] 07:27:00Reason for exam:->post opShould this be performed [...] [place] Verified Date/Time: 2018 07:27:41 Reading Location: [facility] Radiology Reading Room POCT- GLUCOSE [id number] 05:28:00 Test Item Value Reference Range Comments POC-GLUCOSE METER (BEAKER) 166 mg/dL 70-110 TESTED AT [address] (test jooj=0360) [place] [address] [id number] 04:08:00 Test Item Value Reference Range Comments PHOSPHORUS (BEAKER) (test yczx=042) 3.0 mg/dL 2.3-4.7 [id number] 04:08:00 Test Item Value Reference Range Comments MAGNESIUM (BEAKER) (test dzod=989) 1.8 mg/dL 1.6-2.6 BASIC METABOLIC [id number] 04:08:00 Test Item Value Reference Range Comments SODIUM (BEAKER) (test 138 meq/L 136-145 ssqt=310) POTASSIUM (BEAKER) (test 4.6 meq/L 3.5-5.1 ukti=177) CHLORIDE (BEAKER) (test 102 meq/L 98-107 bvvc=133) CO2 (BEAKER) (test 29 meq/L 22-29 nbkq=460) BLOOD UREA NITROGEN 28 mg/dL 7-21 (BEAKER) (test btye=407) CREATININE (BEAKER) (test 1.64 mg/dL 0.57-1.25 agks=878) GLUCOSE RANDOM (BEAKER) 196 mg/dL 70-105 (test xwdk=836) CALCIUM (BEAKER) (test 8.8 mg/dL 8.4-10.2 apht=081) EGFR (BEAKER) (test 37 mL/min/1.73 sq m ESTIMATED GFR IS NOT zsbu=3870) ACCURATE CREATININE CLEARANCE IN PREDICTING GLOMERULAR FILTRATION RATE. ESTIMATED GFR IS NOT APPLICABLE FOR DIALYSIS PATIENTS. [id number] 04:06:00 Test Item Value Reference Range Comments PARTIAL THROMBOPLASTIN TIME (BEAKER) (test 51.7 seconds 22.5-36.0 kfsz=255) PROTHROMBIN TIME/[id number] 04:05:00 Test Item Value Reference Range Comments PROTIME (BEAKER) (test xtda=532) 14.1 seconds 11.7-14.7 INR (BEAKER) (test coaj=300) 1.1 <=5.9 RECOMMENDED COUMADIN/WARFARIN INR THERAPY RANGESSTANDARD DOSE: 2.0 - 3.0 Includes: PROPHYLAXIS forvenous thrombosis, systemic embolization; TREATMENT for venous thrombosis and/or pulmonary embolus.HIGH RISK: Target INR is 2.5-3.5 for patients with mechanical heart valves.CBC (HEMOGRAM ONLY)2018-07-11 03:53:00 Test Item Value Reference Range Comments WHITE BLOOD CELL COUNT (BEAKER) (test yhng=184) 6.3 K/ L 3.5-10.5 RED BLOOD CELL COUNT (BEAKER) (test qris=783) 2.90 M/ L 3.93-5.22 HEMOGLOBIN (BEAKER) (test lgcm=979) 8.8 GM/DL 11.2-15.7 HEMATOCRIT (BEAKER) (test ytlu=734) 29.7 % 34.1-44.9 MEAN CORPUSCULAR VOLUME (BEAKER) (test rauw=415) 102.4 fL 79.4-94.8 MEAN CORPUSCULAR HEMOGLOBIN (BEAKER) (test 30.3 pg 25.6-32.2 ggau=358) MEAN CORPUSCULAR HEMOGLOBIN CONC (BEAKER) (test 29.6 GM/DL 32.2-35.5 akei=753) RED CELL DISTRIBUTION WIDTH (BEAKER) (test 21.0 % 11.7-14.4 avut=340) PLATELET COUNT (BEAKER) (test qxgp=107) 270 K/CU MM 150-450 MEAN PLATELET VOLUME (BEAKER) (test oedg=995) 10.1 fL 9.4-12.3 NUCLEATED RED BLOOD CELLS (BEAKER) (test 0 /100 WBC 0-0 hvdz=554) POCT-GLUCOSE [id number] 00:38:00 Test Item Value Reference Range Comments POC-GLUCOSE METER (BEAKER) 198 mg/dL 70-110 TESTED AT [address] (test szzn=7584) [facility] [address] POCT-GLUCOSE [id number] 18:42:00 Test Item Value Reference Range Comments POC-GLUCOSE METER (BEAKER) 240 mg/dL 70-110 TESTED AT [address] (test nnwh=5484) [facility] [address] POCT-GLUCOSE [id number] 12:48:00 Test Item Value Reference Range Comments POC-GLUCOSE METER (BEAKER) 248 mg/dL 70-110 TESTED AT [address] (test mzzm=1287) [facility] [address] RAD, CHEST, 1 VIEW, NON [id number] 08:53:00Reason for exam:->post opShould this be performed [...] Mckeon Verified Date/Time: 07/10/2018 08:53:53 Reading Location: [address] Reading Room POCT-GLUCOSE [id number] 06:33:00 Test Item Value Reference Range Comments POC-GLUCOSE METER (BEAKER) 129 mg/dL 70-110 TESTED AT [facility] [address] [facility] (test esnk=6365) [facility] [address] POCT-GLUCOSE [id number] 05:36:00 Test Item Value Reference Range Comments POC-GLUCOSE METER (BEAKER) 55 mg/dL 70-110 TESTED AT [place] [id number] [facility] (test zhjw=0692) [facility] [address] [id number] 04:15:00 Test Item Value Reference Range Comments PHOSPHORUS (BEAKER) (test cwoc=409) 3.0 mg/dL 2.3-4.7 [id number] 04:15:00 Test Item Value Reference Range Comments MAGNESIUM (BEAKER) (test ykyn=133) 2.0 mg/dL 1.6-2.6 BASIC METABOLIC [id number] 04:15:00 Test Item Value Reference Range Comments SODIUM (BEAKER) (test 138 meq/L 136-145 rejh=295) POTASSIUM (BEAKER) (test 4.5 meq/L 3.5-5.1 ayww=046) CHLORIDE (BEAKER) (test 103 meq/L 98-107 ddrk=037) CO2 (BEAKER) (test 27 meq/L 22-29 chmf=865) BLOOD UREA NITROGEN 32 mg/dL 7-21 (BEAKER) (test yonk=697) CREATININE (BEAKER) (test 1.55 mg/dL 0.57-1.25 ttgj=974) GLUCOSE RANDOM (BEAKER) 121 mg/dL 70-105 (test apmf=493) CALCIUM (BEAKER) (test 8.8 mg/dL 8.4-10.2 sybp=915) EGFR (BEAKER) (test 40 mL/min/1.73 sq m ESTIMATED GFR IS NOT gwre=7409) ACCURATE CREATININE CLEARANCE IN PREDICTING GLOMERULAR FILTRATION RATE. ESTIMATED GFR IS NOT APPLICABLE FOR DIALYSIS PATIENTS. [id number] 03:41:00 Test Item Value Reference Range Comments PARTIAL THROMBOPLASTIN TIME (BEAKER) (test 50.1 seconds 22.5-36.0 djqd=903) PROTHROMBIN TIME/[id number] 03:40:00 Test Item Value Reference Range Comments PROTIME (BEAKER) (test rspj=396) 14.6 seconds 11.7-14.7 INR (BEAKER) (test irmg=881) 1.1 <=5.9 RECOMMENDED COUMADIN/WARFARIN INR THERAPY RANGESSTANDARD DOSE: 2.0 - 3.0 Includes: PROPHYLAXIS forvenous thrombosis, systemic embolization; TREATMENT for venous thrombosis and/or pulmonary embolus.HIGH RISK: Target INR is 2.5-3.5 for patients with mechanical heart valves.CBC (HEMOGRAM ONLY)2018-07-10 03:38:00 Test Item Value Reference Range Comments WHITE BLOOD CELL COUNT (BEAKER) (test epeo=103) 6.3 K/ L 3.5-10.5 RED BLOOD CELL COUNT (BEAKER) (test iysp=690) 2.47 M/ L 3.93-5.22 HEMOGLOBIN (BEAKER) (test puxo=846) 7.6 GM/DL 11.2-15.7 HEMATOCRIT (BEAKER) (test boto=750) 26.0 % 34.1-44.9 MEAN CORPUSCULAR VOLUME (BEAKER) (test qdfh=797) 105.3 fL 79.4-94.8 MEAN CORPUSCULAR HEMOGLOBIN (BEAKER) (test 30.8 pg 25.6-32.2 kdwo=187) MEAN CORPUSCULAR HEMOGLOBIN CONC (BEAKER) (test 29.2 GM/DL 32.2-35.5 kkdb=838) RED CELL DISTRIBUTION WIDTH (BEAKER) (test 17.1 % 11.7-14.4 ijpb=979) PLATELET COUNT (BEAKER) (test ozjl=233) 301 K/CU MM 150-450 MEAN PLATELET VOLUME (BEAKER) (test yuby=768) 10.0 fL 9.4-12.3 NUCLEATED RED BLOOD CELLS (BEAKER) (test 0 /100 WBC 0-0 llxh=983) POCT-GLUCOSE [id number] 00:03:00 Test Item Value Reference Range Comments POC-GLUCOSE METER (BEAKER) 317 mg/dL 70-110 Notified PAULA BERGER/TESTED AT [facility] (test dsqw=7621) [address] [facility] [address] POCT-GLUCOSE [id number] 17:44:00 Test Item Value Reference Range Comments POC-GLUCOSE METER (BEAKER) 129 mg/dL 70-110 TESTED AT [address] (test hspa=4317) [facility] [address] POCT-GLUCOSE [id number] 12:13:00 Test Item Value Reference Range Comments POC-GLUCOSE METER (BEAKER) 283 mg/dL 70-110 TESTED AT [address] (test aovb=3500) [facility] [address] RAD, CHEST, 1 VIEW, NON [id number] 07:35:00Reason for exam:->post opShould this be performed [...] MDReport Verified Date/Time: 07/09/2018 07:35:48 Reading Location: [facility] C013Y CT Body Reading Room POCT-GLUCOSE [id number] 05:13:00 Test Item Value Reference Range Comments POC-GLUCOSE METER (BEAKER) 186 mg/dL 70-110 TESTED AT [address] (test ngrp=2159) [facility] [address] [id number] 04:51:00 Test Item Value Reference Range Comments PHOSPHORUS (BEAKER) (test rteq=958) 3.8 mg/dL 2.3-4.7 [id number] 04:51:00 Test Item Value Reference Range Comments MAGNESIUM (BEAKER) (test hdfe=073) 2.1 mg/dL 1.6-2.6 BASIC METABOLIC [id number] 04:51:00 Test Item Value Reference Range Comments SODIUM (BEAKER) (test 138 meq/L 136-145 oeqo=829) POTASSIUM (BEAKER) (test 4.9 meq/L 3.5-5.1 pvzh=654) CHLORIDE (BEAKER) (test 103 meq/L 98-107 hftc=609) CO2 (BEAKER) (test 29 meq/L 22-29 ascr=078) BLOOD UREA NITROGEN 33 mg/dL 7-21 (BEAKER) (test epgv=586) CREATININE (BEAKER) (test 1.78 mg/dL 0.57-1.25 irtj=444) GLUCOSE RANDOM (BEAKER) 155 mg/dL 70-105 (test dvsx=188) CALCIUM (BEAKER) (test 9.0 mg/dL 8.4-10.2 izcn=497) EGFR (BEAKER) (test 34 mL/min/1.73 sq m ESTIMATED GFR IS NOT beiy=7199) ACCURATE CREATININE CLEARANCE IN PREDICTING GLOMERULAR FILTRATION RATE. ESTIMATED GFR IS NOT APPLICABLE FOR DIALYSIS PATIENTS. [id number] 04:30:00 Test Item Value Reference Range Comments PARTIAL THROMBOPLASTIN TIME (BEAKER) (test 63.2 seconds 22.5-36.0 ipgw=094) PROTHROMBIN TIME/[id number] 04:29:00 Test Item Value Reference Range Comments PROTIME (BEAKER) (test ougf=012) 14.6 seconds 11.7-14.7 INR (BEAKER) (test kwag=271) 1.1 <=5.9 RECOMMENDED COUMADIN/WARFARIN INR THERAPY RANGESSTANDARD DOSE: 2.0 - 3.0 Includes: PROPHYLAXIS forvenous thrombosis, systemic embolization; TREATMENT for venous thrombosis and/or pulmonary embolus.HIGH RISK: Target INR is 2.5-3.5 for patients with mechanical heart valves.CBC (HEMOGRAM ONLY)2018-07-09 04:18:00 Test Item Value Reference Range Comments WHITE BLOOD CELL COUNT (BEAKER) (test eirp=191) 6.8 K/ L 3.5-10.5 RED BLOOD CELL COUNT (BEAKER) (test mclh=426) 2.73 M/ L 3.93-5.22 HEMOGLOBIN (BEAKER) (test ztih=103) 8.4 GM/DL 11.2-15.7 HEMATOCRIT (BEAKER) (test lguw=888) 28.7 % 34.1-44.9 MEAN CORPUSCULAR VOLUME (BEAKER) (test qirh=785) 105.1 fL 79.4-94.8 MEAN CORPUSCULAR HEMOGLOBIN (BEAKER) (test 30.8 pg 25.6-32.2 ecoj=562) MEAN CORPUSCULAR HEMOGLOBIN CONC (BEAKER) (test 29.3 GM/DL 32.2-35.5 idjx=779) RED CELL DISTRIBUTION WIDTH (BEAKER) (test 17.2 % 11.7-14.4 exac=508) PLATELET COUNT (BEAKER) (test jjuq=606) 263 K/CU MM 150-450 MEAN PLATELET VOLUME (BEAKER) (test djdb=352) 9.9 fL 9.4-12.3 NUCLEATED RED BLOOD CELLS (BEAKER) (test 0 /100 WBC 0-0 eshl=377) POCT-GLUCOSE [id number] 23:27:00 Test Item Value Reference Range Comments POC-GLUCOSE METER (BEAKER) 141 mg/dL 70-110 TESTED AT [address] (test dcle=1935) [facility] [id number] POCT-GLUCOSE [id number] 19:30:00 Test Item Value Reference Range Comments POC-GLUCOSE METER (BEAKER) 234 mg/dL 70-110 TESTED AT [address] (test odnx=2059) [facility] [address] POCT-GLUCOSE [id number] 11:55:00 Test Item Value Reference Range Comments POC-GLUCOSE METER (BEAKER) 317 mg/dL 70-110 TESTED AT [address] (test vkbi=9456) [facility] [address] [id number] 05:14:00 Test Item Value Reference Range Comments PHOSPHORUS (BEAKER) (test fyhz=409) 3.8 mg/dL 2.3-4.7 [id number] 05:14:00 Test Item Value Reference Range Comments MAGNESIUM (BEAKER) (test viaq=409) 2.1 mg/dL 1.6-2.6 BASIC METABOLIC [id number] 05:14:00 Test Item Value Reference Range Comments SODIUM (BEAKER) (test 137 meq/L 136-145 akuw=545) POTASSIUM (BEAKER) (test 4.6 meq/L 3.5-5.1 sddh=830) CHLORIDE (BEAKER) (test 103 meq/L 98-107 rqqv=350) CO2 (BEAKER) (test 26 meq/L 22-29 divk=907) BLOOD UREA NITROGEN 31 mg/dL 7-21 (BEAKER) (test lhlx=415) CREATININE (BEAKER) (test 1.63 mg/dL 0.57-1.25 bwgb=789) GLUCOSE RANDOM (BEAKER) 244 mg/dL 70-105 (test anzc=676) CALCIUM (BEAKER) (test 9.2 mg/dL 8.4-10.2 ppmy=364) EGFR (BEAKER) (test 38 mL/min/1.73 sq m ESTIMATED GFR IS NOT ctbb=4006) ACCURATE CREATININE CLEARANCE IN PREDICTING GLOMERULAR FILTRATION RATE. ESTIMATED GFR IS NOT APPLICABLE FOR DIALYSIS PATIENTS. RAD, CHEST, 1 VIEW, NON [id number] 04:48:00Reason for exam:->post opShould this be performed [...] Verified Date/Time: 07/08/2018 04:48:56 Reading Location : [address] Reading Room Electronicallysigned by: NAVI GARCIA M.D. on 07/08/2018 04:48 [id number] 04:24:00 Test Item Value Reference Range Comments PARTIAL THROMBOPLASTIN TIME (BEAKER) (test 54.7 seconds 22.5-36.0 tazi=658) PROTHROMBIN [id number] 04:23:00 Test Item Value Reference Range Comments PROTIME (BEAKER) (test zacx=991) 14.8 seconds 11.7-14.7 INR (BEAKER) (test uhwi=902) 1.2 <=5.9 RECOMMENDED COUMADIN/WARFARIN INR THERAPY RANGESSTANDARD DOSE: 2.0 - 3.0 Includes: PROPHYLAXIS forvenous thrombosis, systemic embolization; TREATMENT for venous thrombosis and/or pulmonary embolus.HIGH RISK: Target INR is 2.5-3.5 for patients with mechanical heart valves.CBC (HEMOGRAM ONLY)2018-07-08 04:02:00 Test Item Value Reference Range Comments WHITE BLOOD CELL COUNT (BEAKER) (test fmbz=955) 6.7 K/ L 3.5-10.5 RED BLOOD CELL COUNT (BEAKER) (test kaux=743) 2.79 M/ L 3.93-5.22 HEMOGLOBIN (BEAKER) (test ukbw=563) 8.6 GM/DL 11.2-15.7 HEMATOCRIT (BEAKER) (test zncj=597) 29.0 % 34.1-44.9 MEAN CORPUSCULAR VOLUME (BEAKER) (test wbvi=360) 103.9 fL 79.4-94.8 MEAN CORPUSCULAR HEMOGLOBIN (BEAKER) (test 30.8 pg 25.6-32.2 dfgw=233) MEAN CORPUSCULAR HEMOGLOBIN CONC (BEAKER) (test 29.7 GM/DL 32.2-35.5 askn=748) RED CELL DISTRIBUTION WIDTH (BEAKER) (test 17.2 % 11.7-14.4 kdjw=030) PLATELET COUNT (BEAKER) (test tihl=935) 295 K/CU MM 150-450 MEAN PLATELET VOLUME (BEAKER) (test ttza=802) 10.2 fL 9.4-12.3 NUCLEATED RED BLOOD CELLS (BEAKER) (test 0 /100 WBC 0-0 stpc=417) RAD, CHEST, 1 VIEW, NON [id number] 08:41:00Reason for exam:->post opShould this be performed [...] Verified Date/Time: 07/07/2018 08:41:39 Reading Location: [facility] Reading Room [id number] 05:37:00 Test Item Value Reference Range Comments PHOSPHORUS (BEAKER) (test pnvb=231) 3.0 mg/dL 2.3-4.7 [id number] 05:37:00 Test Item Value Reference Range Comments MAGNESIUM (BEAKER) (test kpij=397) 2.1 mg/dL 1.6-2.6 BASIC METABOLIC [id number] 05:37:00 Test Item Value Reference Range Comments SODIUM (BEAKER) (test 137 meq/L 136-145 bplr=812) POTASSIUM (BEAKER) (test 4.6 meq/L 3.5-5.1 gtqf=607) CHLORIDE (BEAKER) (test 102 meq/L 98-107 epqg=926) CO2 (BEAKER) (test 25 meq/L 22-29 jqpg=630) BLOOD UREA NITROGEN 27 mg/dL 7-21 (BEAKER) (test woxa=079) CREATININE (BEAKER) (test 1.44 mg/dL 0.57-1.25 gtrc=730) GLUCOSE RANDOM (BEAKER) 191 mg/dL 70-105 (test jmhf=601) CALCIUM (BEAKER) (test 9.2 mg/dL 8.4-10.2 cfbz=162) EGFR (BEAKER) (test 43 mL/min/1.73 sq m ESTIMATED GFR IS NOT ojwc=4413) ACCURATE CREATININE CLEARANCE IN PREDICTING GLOMERULAR FILTRATION RATE. ESTIMATED GFR IS NOT APPLICABLE FOR DIALYSIS PATIENTS. [id number] 05:12:00 Test Item Value Reference Range Comments PARTIAL THROMBOPLASTIN TIME (BEAKER) (test 42.9 seconds 22.5-36.0 yzdv=156) PROTHROMBIN [id number] 05:11:00 Test Item Value Reference Range Comments PROTIME (BEAKER) (test ucgn=259) 14.1 seconds 11.7-14.7 INR (BEAKER) (test mqzt=628) 1.1 <=5.9 RECOMMENDED COUMADIN/WARFARIN INR THERAPY RANGESSTANDARD DOSE: 2.0 - 3.0 Includes: PROPHYLAXIS forvenous thrombosis, systemic embolization; TREATMENT for venous thrombosis and/or pulmonary embolus.HIGH RISK: Target INR is 2.5-3.5 for patients with mechanical heart valves.CBC (HEMOGRAM ONLY)2018-07-07 05:01:00 Test Item Value Reference Range Comments WHITE BLOOD CELL COUNT (BEAKER) (test qzcv=814) 6.9 K/ L 3.5-10.5 RED BLOOD CELL COUNT (BEAKER) (test iohe=308) 2.84 M/ L 3.93-5.22 HEMOGLOBIN (BEAKER) (test gyzi=145) 8.8 GM/DL 11.2-15.7 HEMATOCRIT (BEAKER) (test wpsj=240) 29.2 % 34.1-44.9 MEAN CORPUSCULAR VOLUME (BEAKER) (test yfst=248) 102.8 fL 79.4-94.8 MEAN CORPUSCULAR HEMOGLOBIN (BEAKER) (test 31.0 pg 25.6-32.2 cknh=796) MEAN CORPUSCULAR HEMOGLOBIN CONC (BEAKER) (test 30.1 GM/DL 32.2-35.5 rsvc=640) RED CELL DISTRIBUTION WIDTH (BEAKER) (test 17.0 % 11.7-14.4 txvp=359) PLATELET COUNT (BEAKER) (test qbwj=931) 270 K/CU MM 150-450 MEAN PLATELET VOLUME (BEAKER) (test tlzp=238) 10.2 fL 9.4-12.3 NUCLEATED RED BLOOD CELLS (BEAKER) (test 0 /100 WBC 0-0 uyns=281) RAD, CHEST, 1 VIEW, NON [id number] 17:48:00Reason for exam:->Confirm PICC line placementShould this [...] MDReport Verified Date/Time: 07/06/2018 17:48:54 Reading Location: [place] [id number] Consult Reading Room Electronically signed by: GEO RICO M.D. on 2018 05:48 [id number] 17:23:00 Test Item Value Reference Range Comments MAGNESIUM (BEAKER) (test yyji=063) 2.2 mg/dL 1.6-2.6 BASIC METABOLIC [id number] 17:23:00 Test Item Value Reference Range Comments SODIUM (BEAKER) (test 137 meq/L 136-145 qqxh=949) POTASSIUM (BEAKER) (test 4.9 meq/L 3.5-5.1 jbit=420) CHLORIDE (BEAKER) (test 103 meq/L 98-107 ajap=112) CO2 (BEAKER) (test 25 meq/L 22-29 guma=509) BLOOD UREA NITROGEN 25 mg/dL 7-21 (BEAKER) (test abdy=122) CREATININE (BEAKER) (test 1.41 mg/dL 0.57-1.25 scaw=096) GLUCOSE RANDOM (BEAKER) 219 mg/dL 70-105 (test obtv=545) CALCIUM (BEAKER) (test 9.0 mg/dL 8.4-10.2 sjmx=561) EGFR (BEAKER) (test 45 mL/min/1.73 sq m ESTIMATED GFR IS NOT qala=4404) ACCURATE CREATININE CLEARANCE IN PREDICTING GLOMERULAR FILTRATION RATE. ESTIMATED GFR IS NOT APPLICABLE FOR DIALYSIS PATIENTS. BLOOD GAS, [id number] 16:33:00 Test Item Value Reference Range Comments PH ARTERIAL (BEAKER) (test vttb=906) 7.46 7.35-7.45 PCO2 ARTERIAL (BEAKER) (test yyhr=061) 42 mmHg 35-45 PO2 ARTERIAL (BEAKER) (test nytf=998) 63 mmHg 80-90 O2 SATURATION ARTERIAL (BEAKER) (test hiwm=570) 93.1 % 96.0-97.0 HCO3 ARTERIAL (BEAKER) (test mpkb=101) 29 mmol/L 21-29 BASE EXCESS ARTERIAL (BEAKER) (test lpyh=017) 4.4 mmol/L -2.0-3.0 PATIENT TEMPERATURE (BEAKER) (test uhdc=2164) 37.0 C FIO2 (BEAKER) (test dumd=1016) 32.0 % RAD, CHEST, 1 VIEW, NON [id number] 13:22:00Reason for exam:->post opShould this be performed at the bedside?->YesFINAL REPORT Chest one view. Clinical history: post op Comparison: 07/05/2018 Discussion: A frontal chest is provided. Cardiomediastinal contours are unchanged. A left IJ line is in stable position. There is mild pulmonary edema. No new consolidation. No pneumothorax. Small bilateral pleural effusions are present. Signed: Morgan Chengeport Verified Date/Time: 07/06/2018 13:22:02 Reading Location: [address] Consult Reading Room [id number] 04:30:00 Test Item Value Reference Range Comments PHOSPHORUS (BEAKER) (test vkhi=190) 3.2 mg/dL 2.3-4.7 [id number] 04:30:00 Test Item Value Reference Range Comments MAGNESIUM (BEAKER) (test xypt=618) 2.2 mg/dL 1.6-2.6 BASIC METABOLIC [id number] 04:30:00 Test Item Value Reference Range Comments SODIUM (BEAKER) (test 138 meq/L 136-145 bxnh=426) POTASSIUM (BEAKER) (test 4.4 meq/L 3.5-5.1 uiav=026) CHLORIDE (BEAKER) (test 104 meq/L 98-107 txwl=127) CO2 (BEAKER) (test 28 meq/L 22-29 vmjc=509) BLOOD UREA NITROGEN 25 mg/dL 7-21 (BEAKER) (test pqta=330) CREATININE (BEAKER) (test 1.43 mg/dL 0.57-1.25 eepf=211) GLUCOSE RANDOM (BEAKER) 207 mg/dL 70-105 (test lhcv=712) CALCIUM (BEAKER) (test 8.9 mg/dL 8.4-10.2 zljc=055) EGFR (BEAKER) (test 44 mL/min/1.73 sq m ESTIMATED GFR IS NOT rwmj=8726) ACCURATE CREATININE CLEARANCE IN PREDICTING GLOMERULAR FILTRATION RATE. ESTIMATED GFR IS NOT APPLICABLE FOR DIALYSIS PATIENTS. PROTHROMBIN TIME/[id number] 04:06:00 Test Item Value Reference Range Comments PROTIME (BEAKER) (test hphe=083) 14.6 seconds 11.7-14.7 INR (BEAKER) (test cslc=434) 1.1 <=5.9 RECOMMENDED COUMADIN/WARFARIN INR THERAPY RANGESSTANDARD DOSE: 2.0 - 3.0 Includes: PROPHYLAXIS forvenous thrombosis, systemic embolization; TREATMENT for venous thrombosis and/or pulmonary embolus.HIGH RISK: Target INR is 2.5-3.5 for patients with mechanical heart valves.[id number] 04:06:00 Test Item Value Reference Range Comments PARTIAL THROMBOPLASTIN TIME (BEAKER) (test 47.8 seconds 22.5-36.0 mfed=085) CBC (HEMOGRAM ONLY)2018-07-06 03:53:00 Test Item Value Reference Range Comments WHITE BLOOD CELL COUNT (BEAKER) (test zsic=816) 7.1 K/ L 3.5-10.5 RED BLOOD CELL COUNT (BEAKER) (test gzki=134) 2.77 M/ L 3.93-5.22 HEMOGLOBIN (BEAKER) (test baud=205) 8.4 GM/DL 11.2-15.7 HEMATOCRIT (BEAKER) (test gghz=722) 28.6 % 34.1-44.9 MEAN CORPUSCULAR VOLUME (BEAKER) (test qszg=762) 103.2 fL 79.4-94.8 MEAN CORPUSCULAR HEMOGLOBIN (BEAKER) (test 30.3 pg 25.6-32.2 qjpz=418) MEAN CORPUSCULAR HEMOGLOBIN CONC (BEAKER) (test 29.4 GM/DL 32.2-35.5 powp=445) RED CELL DISTRIBUTION WIDTH (BEAKER) (test 17.1 % 11.7-14.4 vmrw=694) PLATELET COUNT (BEAKER) (test yirs=146) 267 K/CU MM 150-450 MEAN PLATELET VOLUME (BEAKER) (test krvl=665) 9.9 fL 9.4-12.3 NUCLEATED RED BLOOD CELLS (BEAKER) (test 0 /100 WBC 0-0 rhzh=955) HEPATIC FUNCTION [id number] 17:51:00 Test Item Value Reference Range Comments TOTAL PROTEIN (BEAKER) (test wdlg=052) 6.2 gm/dL 6.0-8.3 ALBUMIN (BEAKER) (test wewv=1806) 3.2 g/dL 3.5-5.0 BILIRUBIN TOTAL (BEAKER) (test stmm=928) 0.7 mg/dL 0.2-1.2 BILIRUBIN DIRECT (BEAKER) (test otcn=108) 0.5 mg/dL 0.1-0.5 ALKALINE PHOSPHATASE (BEAKER) (test pclw=344) 84 U/L 40-150 AST (SGOT) (BEAKER) (test drfq=665) 16 U/L 5-34 ALT (SGPT) (BEAKER) (test gkly=516) 9 U/L 6-55 RAD, CHEST, 1 VIEW, NON [id number] 08:39:00Reason for exam:->post opShould this be performed [...] Mckeon Verified Date/Time: 07/05/2018 08:39:46 Reading Location: [facility] Radiology Reading Room [id number] 04:33:00 Test Item Value Reference Range Comments MAGNESIUM (BEAKER) (test 2.6 mg/dL 1.6-2.6 Specimen slightly hemolyzed egwm=153) [id number] 04:33:00 Test Item Value Reference Range Comments PHOSPHORUS (BEAKER) (test 2.9 mg/dL 2.3-4.7 Specimen slightly hemolyzed ccrr=802) BASIC METABOLIC [id number] 04:33:00 Test Item Value Reference Range Comments SODIUM (BEAKER) (test 139 meq/L 136-145 rrth=313) POTASSIUM (BEAKER) (test 4.5 meq/L 3.5-5.1 Specimen slightly xkik=362) hemolyzed CHLORIDE (BEAKER) (test 105 meq/L 98-107 scny=532) CO2 (BEAKER) (test 28 meq/L 22-29 lior=373) BLOOD UREA NITROGEN 26 mg/dL 7-21 (BEAKER) (test fwlj=187) CREATININE (BEAKER) (test 1.32 mg/dL 0.57-1.25 Specimen slightly geny=885) hemolyzed GLUCOSE RANDOM (BEAKER) 111 mg/dL 70-105 (test bzxa=975) CALCIUM (BEAKER) (test 8.5 mg/dL 8.4-10.2 adyj=625) EGFR (BEAKER) (test 48 mL/min/1.73 sq m ESTIMATED GFR IS NOT bzpe=5999) ACCURATE CREATININE CLEARANCE IN PREDICTING GLOMERULAR FILTRATION RATE. ESTIMATED GFR IS NOT APPLICABLE FOR DIALYSIS PATIENTS. [id number] 04:23:00 Test Item Value Reference Range Comments PARTIAL THROMBOPLASTIN TIME (BEAKER) (test 49.0 seconds 22.5-36.0 wpgq=987) PROTHROMBIN TIME/[id number] 04:22:00 Test Item Value Reference Range Comments PROTIME (BEAKER) (test unxy=637) 14.3 seconds 11.7-14.7 INR (BEAKER) (test rzgo=414) 1.1 <=5.9 RECOMMENDED COUMADIN/WARFARIN INR THERAPY RANGESSTANDARD DOSE: 2.0 - 3.0 Includes: PROPHYLAXIS forvenous thrombosis, systemic embolization; TREATMENT for venous thrombosis and/or pulmonary embolus.HIGH RISK: Target INR is 2.5-3.5 for patients with mechanical heart valves.CBC (HEMOGRAM ONLY)2018-07-05 04:13:00 Test Item Value Reference Range Comments WHITE BLOOD CELL COUNT (BEAKER) (test mmik=539) 6.6 K/ L 3.5-10.5 RED BLOOD CELL COUNT (BEAKER) (test qrgw=844) 2.60 M/ L 3.93-5.22 HEMOGLOBIN (BEAKER) (test vzpj=884) 7.9 GM/DL 11.2-15.7 HEMATOCRIT (BEAKER) (test ctkx=888) 26.5 % 34.1-44.9 MEAN CORPUSCULAR VOLUME (BEAKER) (test ngrs=905) 101.9 fL 79.4-94.8 MEAN CORPUSCULAR HEMOGLOBIN (BEAKER) (test 30.4 pg 25.6-32.2 gcxj=289) MEAN CORPUSCULAR HEMOGLOBIN CONC (BEAKER) (test 29.8 GM/DL 32.2-35.5 zvyi=727) RED CELL DISTRIBUTION WIDTH (BEAKER) (test 17.4 % 11.7-14.4 cpdn=953) PLATELET COUNT (BEAKER) (test gvqu=364) 248 K/CU MM 150-450 MEAN PLATELET VOLUME (BEAKER) (test ckgy=326) 10.4 fL 9.4-12.3 NUCLEATED RED BLOOD CELLS (BEAKER) (test 0 /100 WBC 0-0 nwuv=786) POCT-GLUCOSE [id number] 18:22:00 Test Item Value Reference Range Comments POC-GLUCOSE METER (BEAKER) 166 mg/dL 70-110 TESTED AT [address] (test kbfy=7162) [facility] [address] RAD, CHEST, 1 VIEW, NON [id number] 08:37:00Reason for exam:->post opShould this be performed at the bedside?->YesFINAL REPORT AP view of the chest dated 07/04/2018 COMPARISON: 07/03/2018 CLINICAL INFORMATION: post op Comment: Heart remains enlarged. Thoracic aorta is ectatic. Stent is seen inthe descending thoracic aorta. Pulmonary vasculature is unremarkable. Lungs are clear. No pulmonary infiltrate or pleural effusion is present. Impression: No interval change. Signed: Virginia Diaz [facility] Verified Date/Time: 07/04/2018 08:37:54 Reading Location: [facility] Radiology Reading Room Electronically signed by: VIRGINIA DIAZ M.D. on 2018 08:37 [id number] 04:36:00 Test Item Value Reference Range Comments PARTIAL THROMBOPLASTIN TIME (BEAKER) (test 49.7 seconds 22.5-36.0 sloe=330) PROTHROMBIN TIME/[id number] 04:35:00 Test Item Value Reference Range Comments PROTIME (BEAKER) (test hnpz=291) 15.0 seconds 11.7-14.7 INR (BEAKER) (test pkam=451) 1.2 <=5.9 RECOMMENDED COUMADIN/WARFARIN INR THERAPY RANGESSTANDARD DOSE: 2.0 - 3.0 Includes: PROPHYLAXIS forvenous thrombosis, systemic embolization; TREATMENT for venous thrombosis and/or pulmonary embolus.HIGH RISK: Target INR is 2.5-3.5 for patients with mechanical heart valves.[id number] 04:35:00 Test Item Value Reference Range Comments PHOSPHORUS (BEAKER) (test urif=404) 2.5 mg/dL 2.3-4.7 [id number] 04:35:00 Test Item Value Reference Range Comments MAGNESIUM (BEAKER) (test bawd=534) 2.2 mg/dL 1.6-2.6 BASIC METABOLIC [id number] 04:35:00 Test Item Value Reference Range Comments SODIUM (BEAKER) (test 138 meq/L 136-145 czze=444) POTASSIUM (BEAKER) (test 3.8 meq/L 3.5-5.1 cmrm=752) CHLORIDE (BEAKER) (test 102 meq/L 98-107 cikx=477) CO2 (BEAKER) (test 30 meq/L 22-29 apkm=688) BLOOD UREA NITROGEN 28 mg/dL 7-21 (BEAKER) (test bxoh=582) CREATININE (BEAKER) (test 1.48 mg/dL 0.57-1.25 iryi=726) GLUCOSE RANDOM (BEAKER) 175 mg/dL 70-105 (test gfzn=039) CALCIUM (BEAKER) (test 8.6 mg/dL 8.4-10.2 dscn=744) EGFR (BEAKER) (test 42 mL/min/1.73 sq m ESTIMATED GFR IS NOT yehl=9101) ACCURATE CREATININE CLEARANCE IN PREDICTING GLOMERULAR FILTRATION RATE. ESTIMATED GFR IS NOT APPLICABLE FOR DIALYSIS PATIENTS. CBC (HEMOGRAM ONLY)2018-07-04 04:16:00 Test Item Value Reference Range Comments WHITE BLOOD CELL COUNT (BEAKER) (test aene=877) 7.4 K/ L 3.5-10.5 RED BLOOD CELL COUNT (BEAKER) (test hotl=243) 2.76 M/ L 3.93-5.22 HEMOGLOBIN (BEAKER) (test exiz=507) 8.5 GM/DL 11.2-15.7 HEMATOCRIT (BEAKER) (test xvhu=059) 28.1 % 34.1-44.9 MEAN CORPUSCULAR VOLUME (BEAKER) (test dhxd=412) 101.8 fL 79.4-94.8 MEAN CORPUSCULAR HEMOGLOBIN (BEAKER) (test 30.8 pg 25.6-32.2 ckeu=622) MEAN CORPUSCULAR HEMOGLOBIN CONC (BEAKER) (test 30.2 GM/DL 32.2-35.5 rxtt=123) RED CELL DISTRIBUTION WIDTH (BEAKER) (test 17.7 % 11.7-14.4 qlel=105) PLATELET COUNT (BEAKER) (test syom=655) 268 K/CU MM 150-450 MEAN PLATELET VOLUME (BEAKER) (test hqqu=242) 10.2 fL 9.4-12.3 NUCLEATED RED BLOOD CELLS (BEAKER) (test 0 /100 WBC 0-0 koqv=818) [id number] 10:56:00 Test Item Value Reference Range Comments POTASSIUM (BEAKER) (test ucqq=756) 4.3 meq/L 3.5-5.1 Check Serum Potassium level 30 minutes after IV potassium replacement completed.RAD, CHEST, 1 VIEW, NON [id number] 08:24:00Reason for exam:-> post opShould this be [...] MDReport Verified Date/Time: 07/03/2018 08:24:18 Reading Location: [facility] Radiology Reading Room POCT-GLUCOSE [id number] 08:16:00 Test Item Value Reference Range Comments POC-GLUCOSE METER (BEAKER) 164 mg/dL 70-110 TESTED AT [facility] [address] [facility] (test uywt=5863) [facility] [address] RAD, ABDOMEN/KUB, 1 VIEW [id number] 06:21:00Reason for exam:->abd painShould this be performed [...] MDReport Verified Date/Time: 07/03/2018 06:21:16 Reading Location: [address] Reading Room [id number] 04:00:00 Test Item Value Reference Range Comments PHOSPHORUS (BEAKER) (test vykg=606) 2.3 mg/dL 2.3-4.7 [id number] 04:00:00 Test Item Value Reference Range Comments MAGNESIUM (BEAKER) (test hokc=295) 1.9 mg/dL 1.6-2.6 BASIC METABOLIC [id number] 04:00:00 Test Item Value Reference Range Comments SODIUM (BEAKER) (test 139 meq/L 136-145 kfog=279) POTASSIUM (BEAKER) (test 3.5 meq/L 3.5-5.1 mpzc=731) CHLORIDE (BEAKER) (test 103 meq/L 98-107 wuel=559) CO2 (BEAKER) (test 27 meq/L 22-29 ygin=427) BLOOD UREA NITROGEN 27 mg/dL 7-21 (BEAKER) (test orzr=117) CREATININE (BEAKER) (test 1.40 mg/dL 0.57-1.25 vifz=186) GLUCOSE RANDOM (BEAKER) 123 mg/dL 70-105 (test wizp=887) CALCIUM (BEAKER) (test 8.9 mg/dL 8.4-10.2 qmbu=628) EGFR (BEAKER) (test 45 mL/min/1.73 sq m ESTIMATED GFR IS NOT egwu=6807) ACCURATE CREATININE CLEARANCE IN PREDICTING GLOMERULAR FILTRATION RATE. ESTIMATED GFR IS NOT APPLICABLE FOR DIALYSIS PATIENTS. [id number] 03:59:00 Test Item Value Reference Range Comments PARTIAL THROMBOPLASTIN TIME (BEAKER) (test 48.9 seconds 22.5-36.0 zzff=019) PROTHROMBIN TIME/[id number] 03:58:00 Test Item Value Reference Range Comments PROTIME (BEAKER) (test kyfj=873) 15.3 seconds 11.7-14.7 INR (BEAKER) (test pati=311) 1.2 <=5.9 RECOMMENDED COUMADIN/WARFARIN INR THERAPY RANGESSTANDARD DOSE: 2.0 - 3.0 Includes: PROPHYLAXIS forvenous thrombosis, systemic embolization; TREATMENT for venous thrombosis and/or pulmonary embolus.HIGH RISK: Target INR is 2.5-3.5 for patients with mechanical heart valves.CBC (HEMOGRAM ONLY)2018-07-03 03:39:00 Test Item Value Reference Range Comments WHITE BLOOD CELL COUNT (BEAKER) (test rwkw=653) 8.1 K/ L 3.5-10.5 RED BLOOD CELL COUNT (BEAKER) (test qwjr=924) 2.90 M/ L 3.93-5.22 HEMOGLOBIN (BEAKER) (test kqkv=405) 9.0 GM/DL 11.2-15.7 HEMATOCRIT (BEAKER) (test xxox=161) 29.4 % 34.1-44.9 MEAN CORPUSCULAR VOLUME (BEAKER) (test xwza=118) 101.4 fL 79.4-94.8 MEAN CORPUSCULAR HEMOGLOBIN (BEAKER) (test 31.0 pg 25.6-32.2 arnf=401) MEAN CORPUSCULAR HEMOGLOBIN CONC (BEAKER) (test 30.6 GM/DL 32.2-35.5 aaql=609) RED CELL DISTRIBUTION WIDTH (BEAKER) (test 17.8 % 11.7-14.4 fnjv=724) PLATELET COUNT (BEAKER) (test iuzj=274) 245 K/CU MM 150-450 MEAN PLATELET VOLUME (BEAKER) (test adwg=986) 9.8 fL 9.4-12.3 NUCLEATED RED BLOOD CELLS (BEAKER) (test 0 /100 WBC 0-0 xnfi=720) OXYGEN SATURATION, [id number] 10:53:00 Test Item Value Reference Range Comments O2 SATURATION (MEASURED) (BEAKER) (test glzs=0934) 50.1 % OXYGEN SATURATION, [id number] 08:54:00 Test Item Value Reference Range Comments O2 SATURATION (MEASURED) (BEAKER) (test mtdl=3127) 45.3 % BLOOD GAS, [id number] 08:54:00 Test Item Value Reference Range Comments PH ARTERIAL (BEAKER) (test klbv=558) 7.49 7.35-7.45 PCO2 ARTERIAL (BEAKER) (test qgjc=767) 39 mmHg 35-45 PO2 ARTERIAL (BEAKER) (test ooif=379) 64 mmHg 80-90 O2 SATURATION ARTERIAL (BEAKER) (test wxul=223) 94.6 % 96.0-97.0 HCO3 ARTERIAL (BEAKER) (test kpzg=426) 29 mmol/L 21-29 BASE EXCESS ARTERIAL (BEAKER) (test xklm=065) 5.1 mmol/L -2.0-3.0 PATIENT TEMPERATURE (BEAKER) (test kfvw=5525) 36.1 C FIO2 (BEAKER) (test uour=7078) 32.0 % RAD, CHEST, 1 VIEW, NON [id number] 06:40:00Reason for exam:->ETTShould this be performed at [...] MDReport Verified Date/Time: 07/02/2018 06:40:32 Reading Location: [address] Transitional Reading Room CBC W/PLT COUNT & AUTO [id number] 05:31 :00 Test Item Value Reference Range Comments WHITE BLOOD CELL COUNT (BEAKER) (test dpyf=827) 7.9 K/ L 3.5-10.5 RED BLOOD CELL COUNT (BEAKER) (test cvcy=845) 2.83 M/ L 3.93-5.22 HEMOGLOBIN (BEAKER) (test bsmk=643) 8.6 GM/DL 11.2-15.7 HEMATOCRIT (BEAKER) (test dmru=742) 28.4 % 34.1-44.9 MEAN CORPUSCULAR VOLUME (BEAKER) (test bbsp=471) 100.4 fL 79.4-94.8 MEAN CORPUSCULAR HEMOGLOBIN (BEAKER) (test 30.4 pg 25.6-32.2 cdep=728) MEAN CORPUSCULAR HEMOGLOBIN CONC (BEAKER) (test 30.3 GM/DL 32.2-35.5 dbcv=852) RED CELL DISTRIBUTION WIDTH (BEAKER) (test 17.9 % 11.7-14.4 iptg=580) PLATELET COUNT (BEAKER) (test oddl=412) 222 K/CU MM 150-450 MEAN PLATELET VOLUME (BEAKER) (test fnox=085) 9.9 fL 9.4-12.3 NUCLEATED RED BLOOD CELLS (BEAKER) (test 0 /100 WBC 0-0 qfnt=012) NEUTROPHILS RELATIVE PERCENT (BEAKER) (test 85 % ifsb=453) LYMPHOCYTES RELATIVE PERCENT (BEAKER) (test 6 % uowu=089) MONOCYTES RELATIVE PERCENT (BEAKER) (test 8 % imna=739) EOSINOPHILS RELATIVE PERCENT (BEAKER) (test 1 % evbx=357) BASOPHILS RELATIVE PERCENT (BEAKER) (test 0 % fhfx=564) NEUTROPHILS ABSOLUTE COUNT (BEAKER) (test 6.67 K/ L 1.56-6.13 lsig=756) LYMPHOCYTES ABSOLUTE COUNT (BEAKER) (test 0.46 K/ L 1.18-3.74 nnay=547) MONOCYTES ABSOLUTE COUNT (BEAKER) (test 0.64 K/ L 0.24-0.36 rlba=593) EOSINOPHILS ABSOLUTE COUNT (BEAKER) (test 0.06 K/ L 0.04-0.36 fbhb=050) BASOPHILS ABSOLUTE COUNT (BEAKER) (test 0.02 K/ L 0.01-0.08 qent=168) IMMATURE GRANULOCYTES-RELATIVE PERCENT (BEAKER) 1 % 0-1 (test joyx=4403) BASIC METABOLIC [id number] 04:54:00 Test Item Value Reference Range Comments SODIUM (BEAKER) (test 140 meq/L 136-145 dqwt=692) POTASSIUM (BEAKER) (test 3.7 meq/L 3.5-5.1 ytmj=316) CHLORIDE (BEAKER) (test 104 meq/L 98-107 rgmo=530) CO2 (BEAKER) (test 28 meq/L 22-29 kaam=353) BLOOD UREA NITROGEN 29 mg/dL 7-21 (BEAKER) (test zpni=776) CREATININE (BEAKER) (test 1.49 mg/dL 0.57-1.25 pklm=134) GLUCOSE RANDOM (BEAKER) 107 mg/dL 70-105 (test quuk=975) CALCIUM (BEAKER) (test 8.9 mg/dL 8.4-10.2 wqlq=330) EGFR (BEAKER) (test 42 mL/min/1.73 sq m ESTIMATED GFR IS NOT zeeo=1370) ACCURATE CREATININE CLEARANCE IN PREDICTING GLOMERULAR FILTRATION RATE. ESTIMATED GFR IS NOT APPLICABLE FOR DIALYSIS PATIENTS. BASIC METABOLIC [id number] 18:41:00 Test Item Value Reference Range Comments SODIUM (BEAKER) (test 140 meq/L 136-145 gpcl=224) POTASSIUM (BEAKER) (test 4.1 meq/L 3.5-5.1 eegn=240) CHLORIDE (BEAKER) (test 104 meq/L 98-107 dntp=053) CO2 (BEAKER) (test 25 meq/L 22-29 dxax=442) BLOOD UREA NITROGEN 31 mg/dL 7-21 (BEAKER) (test awjr=143) CREATININE (BEAKER) (test 1.55 mg/dL 0.57-1.25 kjag=376) GLUCOSE RANDOM (BEAKER) 127 mg/dL 70-105 (test pfex=721) CALCIUM (BEAKER) (test 9.0 mg/dL 8.4-10.2 yypg=567) EGFR (BEAKER) (test 40 mL/min/1.73 sq m ESTIMATED GFR IS NOT qcvh=5817) ACCURATE CREATININE CLEARANCE IN PREDICTING GLOMERULAR FILTRATION RATE. ESTIMATED GFR IS NOT APPLICABLE FOR DIALYSIS PATIENTS. BLOOD GAS, [id number] 18:12:00 Test Item Value Reference Range Comments PH ARTERIAL (BEAKER) (test mldh=877) 7.50 7.35-7.45 PCO2 ARTERIAL (BEAKER) (test vrce=012) 39 mmHg 35-45 PO2 ARTERIAL (BEAKER) (test ihxo=571) 59 mmHg 80-90 O2 SATURATION ARTERIAL (BEAKER) (test kjtr=204) 92.7 % 96.0-97.0 HCO3 ARTERIAL (BEAKER) (test vjyr=409) 30 mmol/L 21-29 BASE EXCESS ARTERIAL (BEAKER) (test tgfd=444) 6.0 mmol/L -2.0-3.0 PATIENT TEMPERATURE (BEAKER) (test brnz=6205) 36.9 C FIO2 (BEAKER) (test wnqb=5668) 32.0 % RAD, CHEST, 1 VIEW, NON [id number] 07:32:00Reason for exam:->ETTShould this be performed at the bedside?->YesFINAL REPORT Chest one view. Clinical history: ETT Comparison: 06/30/2018 Discussion: A frontal chest is provided. Cardiomediastinal contours are unchanged. ET has been removed. Left IJ line is unchanged. There is unchanged mild vascular congestion and interstitial edema. Probable small left effusion. No pneumothorax. Signed: Morgan Cheng Verified Date/Time: 07/01/2018 07:32: 43 Reading Location: [address] Neuro Reading Room BASIC METABOLIC [id number] 06:20:00 Test Item Value Reference Range Comments SODIUM (BEAKER) (test 142 meq/L 136-145 copc=841) POTASSIUM (BEAKER) (test 4.3 meq/L 3.5-5.1 fnmb=944) CHLORIDE (BEAKER) (test 106 meq/L 98-107 iabj=193) CO2 (BEAKER) (test 27 meq/L 22-29 bncl=284) BLOOD UREA NITROGEN 34 mg/dL 7-21 (BEAKER) (test yaau=227) CREATININE (BEAKER) (test 1.67 mg/dL 0.57-1.25 uprh=008) GLUCOSE RANDOM (BEAKER) 130 mg/dL 70-105 (test ljsj=472) CALCIUM (BEAKER) (test 9.1 mg/dL 8.4-10.2 pufr=597) EGFR (BEAKER) (test 37 mL/min/1.73 sq m ESTIMATED GFR IS NOT rfvf=4153) ACCURATE CREATININE CLEARANCE IN PREDICTING GLOMERULAR FILTRATION RATE. ESTIMATED GFR IS NOT APPLICABLE FOR DIALYSIS PATIENTS. CBC W/PLT COUNT & AUTO [id number] 05:56:00 Test Item Value Reference Range Comments WHITE BLOOD CELL COUNT (BEAKER) (test zvgk=461) 6.9 K/ L 3.5-10.5 RED BLOOD CELL COUNT (BEAKER) (test lqep=831) 2.88 M/ L 3.93-5.22 HEMOGLOBIN (BEAKER) (test dlee=109) 8.9 GM/DL 11.2-15.7 HEMATOCRIT (BEAKER) (test vvkv=370) 29.5 % 34.1-44.9 MEAN CORPUSCULAR VOLUME (BEAKER) (test emwa=550) 102.4 fL 79.4-94.8 MEAN CORPUSCULAR HEMOGLOBIN (BEAKER) (test 30.9 pg 25.6-32.2 ddru=713) MEAN CORPUSCULAR HEMOGLOBIN CONC (BEAKER) (test 30.2 GM/DL 32.2-35.5 zudt=820) RED CELL DISTRIBUTION WIDTH (BEAKER) (test 17.8 % 11.7-14.4 erif=458) PLATELET COUNT (BEAKER) (test qwgd=312) 211 K/CU MM 150-450 MEAN PLATELET VOLUME (BEAKER) (test hxpf=420) 9.6 fL 9.4-12.3 NUCLEATED RED BLOOD CELLS (BEAKER) (test 0 /100 WBC 0-0 oxbp=139) NEUTROPHILS RELATIVE PERCENT (BEAKER) (test 86 % onsz=666) LYMPHOCYTES RELATIVE PERCENT (BEAKER) (test 5 % poni=665) MONOCYTES RELATIVE PERCENT (BEAKER) (test 8 % ydjn=933) EOSINOPHILS RELATIVE PERCENT (BEAKER) (test 0 % tteo=393) BASOPHILS RELATIVE PERCENT (BEAKER) (test 0 % qfbd=419) NEUTROPHILS ABSOLUTE COUNT (BEAKER) (test 5.94 K/ L 1.56-6.13 henz=041) LYMPHOCYTES ABSOLUTE COUNT (BEAKER) (test 0.37 K/ L 1.18-3.74 corc=195) MONOCYTES ABSOLUTE COUNT (BEAKER) (test 0.53 K/ L 0.24-0.36 iclw=021) EOSINOPHILS ABSOLUTE COUNT (BEAKER) (test 0.02 K/ L 0.04-0.36 tjno=415) BASOPHILS ABSOLUTE COUNT (BEAKER) (test 0.01 K/ L 0.01-0.08 ecmv=462) IMMATURE GRANULOCYTES-RELATIVE PERCENT (BEAKER) 0 % 0-1 (test qimu=0804) [id number] 15:31:00 Test Item Value Reference Range Comments MAGNESIUM (BEAKER) (test ubpz=395) 2.2 mg/dL 1.6-2.6 BASIC METABOLIC [id number] 15:31:00 Test Item Value Reference Range Comments SODIUM (BEAKER) (test 137 meq/L 136-145 mfmj=968) POTASSIUM (BEAKER) (test 4.5 meq/L 3.5-5.1 xqsx=444) CHLORIDE (BEAKER) (test 102 meq/L 98-107 nbcw=062) CO2 (BEAKER) (test 24 meq/L 22-29 ygof=190) BLOOD UREA NITROGEN 36 mg/dL 7-21 (BEAKER) (test eauq=880) CREATININE (BEAKER) (test 1.78 mg/dL 0.57-1.25 eodz=273) GLUCOSE RANDOM (BEAKER) 179 mg/dL 70-105 (test ying=626) CALCIUM (BEAKER) (test 8.8 mg/dL 8.4-10.2 gals=201) EGFR (BEAKER) (test 34 mL/min/1.73 sq m ESTIMATED GFR IS NOT rfbd=0298) ACCURATE CREATININE CLEARANCE IN PREDICTING GLOMERULAR FILTRATION RATE. ESTIMATED GFR IS NOT APPLICABLE FOR DIALYSIS PATIENTS. CBC W/PLT COUNT & AUTO [id number] 15:17:00 Test Item Value Reference Range Comments WHITE BLOOD CELL COUNT (BEAKER) (test wsuy=165) 7.3 K/ L 3.5-10.5 RED BLOOD CELL COUNT (BEAKER) (test pfdx=183) 3.02 M/ L 3.93-5.22 HEMOGLOBIN (BEAKER) (test pcjp=276) 9.5 GM/DL 11.2-15.7 HEMATOCRIT (BEAKER) (test qudc=986) 31.3 % 34.1-44.9 MEAN CORPUSCULAR VOLUME (BEAKER) (test wnzz=144) 103.6 fL 79.4-94.8 MEAN CORPUSCULAR HEMOGLOBIN (BEAKER) (test 31.5 pg 25.6-32.2 saeg=188) MEAN CORPUSCULAR HEMOGLOBIN CONC (BEAKER) (test 30.4 GM/DL 32.2-35.5 yyhg=884) RED CELL DISTRIBUTION WIDTH (BEAKER) (test 17.8 % 11.7-14.4 byfe=675) PLATELET COUNT (BEAKER) (test akfv=580) 229 K/CU MM 150-450 MEAN PLATELET VOLUME (BEAKER) (test tifp=053) 9.7 fL 9.4-12.3 NUCLEATED RED BLOOD CELLS (BEAKER) (test 0 /100 WBC 0-0 obwx=299) NEUTROPHILS RELATIVE PERCENT (BEAKER) (test 91 % fetw=122) LYMPHOCYTES RELATIVE PERCENT (BEAKER) (test 3 % cpih=573) MONOCYTES RELATIVE PERCENT (BEAKER) (test 5 % qcnn=089) EOSINOPHILS RELATIVE PERCENT (BEAKER) (test 0 % tcpa=372) BASOPHILS RELATIVE PERCENT (BEAKER) (test 0 % ysjh=969) NEUTROPHILS ABSOLUTE COUNT (BEAKER) (test 6.62 K/ L 1.56-6.13 oyny=028) LYMPHOCYTES ABSOLUTE COUNT (BEAKER) (test 0.23 K/ L 1.18-3.74 whoi=255) MONOCYTES ABSOLUTE COUNT (BEAKER) (test 0.39 K/ L 0.24-0.36 ghya=006) EOSINOPHILS ABSOLUTE COUNT (BEAKER) (test 0.00 K/ L 0.04-0.36 fxqt=832) BASOPHILS ABSOLUTE COUNT (BEAKER) (test 0.02 K/ L 0.01-0.08 dmit=743) IMMATURE GRANULOCYTES-RELATIVE PERCENT (BEAKER) 0 % 0-1 (test otui=3509) RAD, CHEST, 1 VIEW, NON [id number] 08:50:00Reason for exam:->ETTShould this be performed at [...] MDReport Verified Date/Time: 06/30/2018 08:50:44 Reading Location: [address] Ultrasound Reading Room [id number] 06:52:00 Test Item Value Reference Range Comments ACTIVATED CLOTTING TIME 147 sec TESTED AT [address] (BEAKER) (test spxo=819) [place] [address] [id number] 06:52:00 Test Item Value Reference Range Comments ACTIVATED CLOTTING TIME 252 sec TESTED AT [address] (BEAKER) (test miki=426) [place] [address] [id number] 06:52:00 Test Item Value Reference Range Comments ACTIVATED CLOTTING TIME 257 sec TESTED AT [address] (BEAKER) (test szcw=016) [place] [address] [id number] 06:52:00 Test Item Value Reference Range Comments ACTIVATED CLOTTING TIME 246 sec TESTED AT [address] (BEAKER) (test ncwf=524) [place] [address] LACTIC ACID, [id number] 05:16:00 Test Item Value Reference Range Comments LACTATE BLOOD ARTERIAL (2) (BEAKER) (test 1.0 mmol/L 0.5-2.2 bmak=9442) BLOOD GAS, [id number] 05:06:00 Test Item Value Reference Range Comments PH ARTERIAL (BEAKER) (test zvum=987) 7.38 7.35-7.45 PCO2 ARTERIAL (BEAKER) (test sbyb=281) 40 mmHg 35-45 PO2 ARTERIAL (BEAKER) (test fcqo=972) 107 mmHg 80-90 O2 SATURATION ARTERIAL (BEAKER) (test gfya=023) 97.9 % 96.0-97.0 HCO3 ARTERIAL (BEAKER) (test eecq=553) 23 mmol/L 21-29 BASE EXCESS ARTERIAL (BEAKER) (test onux=661) -2.1 mmol/L -2.0-3.0 PATIENT TEMPERATURE (BEAKER) (test xfkv=7263) 36.7 C FIO2 (BEAKER) (test updk=2064) 60.0 % CBC W/PLT COUNT & AUTO [id number] 04:59:00 Test Item Value Reference Range Comments WHITE BLOOD CELL COUNT (BEAKER) (test vjqa=811) 8.9 K/ L 3.5-10.5 RED BLOOD CELL COUNT (BEAKER) (test yejv=582) 3.28 M/ L 3.93-5.22 HEMOGLOBIN (BEAKER) (test zyew=336) 10.0 GM/DL 11.2-15.7 HEMATOCRIT (BEAKER) (test jmxy=644) 34.4 % 34.1-44.9 MEAN CORPUSCULAR VOLUME (BEAKER) (test tevu=200) 104.9 fL 79.4-94.8 MEAN CORPUSCULAR HEMOGLOBIN (BEAKER) (test 30.5 pg 25.6-32.2 qqif=614) MEAN CORPUSCULAR HEMOGLOBIN CONC (BEAKER) (test 29.1 GM/DL 32.2-35.5 cvaf=638) RED CELL DISTRIBUTION WIDTH (BEAKER) (test 17.6 % 11.7-14.4 hjyt=533) PLATELET COUNT (BEAKER) (test iphb=742) 276 K/CU MM 150-450 MEAN PLATELET VOLUME (BEAKER) (test rezq=596) 9.7 fL 9.4-12.3 NUCLEATED RED BLOOD CELLS (BEAKER) (test 0 /100 WBC 0-0 tuhj=981) NEUTROPHILS RELATIVE PERCENT (BEAKER) (test 90 % jlch=558) LYMPHOCYTES RELATIVE PERCENT (BEAKER) (test 3 % hpuf=331) MONOCYTES RELATIVE PERCENT (BEAKER) (test 6 % irae=074) EOSINOPHILS RELATIVE PERCENT (BEAKER) (test 0 % wzzf=143) BASOPHILS RELATIVE PERCENT (BEAKER) (test 0 % brxt=284) NEUTROPHILS ABSOLUTE COUNT (BEAKER) (test 8.00 K/ L 1.56-6.13 hgnj=130) LYMPHOCYTES ABSOLUTE COUNT (BEAKER) (test 0.30 K/ L 1.18-3.74 fqxt=682) MONOCYTES ABSOLUTE COUNT (BEAKER) (test 0.51 K/ L 0.24-0.36 uikf=886) EOSINOPHILS ABSOLUTE COUNT (BEAKER) (test 0.01 K/ L 0.04-0.36 zvwb=823) BASOPHILS ABSOLUTE COUNT (BEAKER) (test 0.02 K/ L 0.01-0.08 zppk=395) IMMATURE GRANULOCYTES-RELATIVE PERCENT (BEAKER) 1 % 0-1 (test dapp=0959) B-TYPE NATRIURETIC FACTOR (BNP)2018-06-30 04:19:00 Test Item Value Reference Range Comments B-TYPE NATRIURETIC PEPTIDE (BEAKER) (test 64335 pg/mL 0-100 enrf=731) HEPATIC FUNCTION [id number] 04:01:00 Test Item Value Reference Range Comments TOTAL PROTEIN (BEAKER) (test sboy=406) 6.5 gm/dL 6.0-8.3 ALBUMIN (BEAKER) (test nmoj=6499) 3.4 g/dL 3.5-5.0 BILIRUBIN TOTAL (BEAKER) (test botw=076) 1.2 mg/dL 0.2-1.2 BILIRUBIN DIRECT (BEAKER) (test cyal=112) 0.8 mg/dL 0.1-0.5 ALKALINE PHOSPHATASE (BEAKER) (test yieg=501) 103 U/L 40-150 AST (SGOT) (BEAKER) (test plig=639) 17 U/L 5-34 ALT (SGPT) (BEAKER) (test avxo=803) 15 U/L 6-55 RAD, CHEST, 1 VIEW, NON [id number] 02:31:00Reason for exam:->ETTShould this be performed at [...] Spann Verified Date/Time: 06/30/2018 02:31:37 Reading Location: [facility] Transitional Reading Room [id number] 02:27:00 Test Item Value Reference Range Comments PARTIAL THROMBOPLASTIN TIME (BEAKER) (test 39.5 seconds 22.5-36.0 rkyz=645) PROTHROMBIN [id number] 02:26:00 Test Item Value Reference Range Comments PROTIME (BEAKER) (test lvyr=070) 16.5 seconds 11.7-14.7 INR (BEAKER) (test eblz=365) 1.3 <=5.9 RECOMMENDED COUMADIN/WARFARIN INR THERAPY RANGESSTANDARD DOSE: 2.0 - 3.0 Includes: PROPHYLAXIS forvenous thrombosis, systemic embolization; TREATMENT for venous thrombosis and/or pulmonary embolus.HIGH RISK: Target INR is 2.5-3.5 for patients with mechanical heart valves.BASIC METABOLIC [id number] 02:09: 00 Test Item Value Reference Range Comments SODIUM (BEAKER) (test 137 meq/L 136-145 cbqq=775) POTASSIUM (BEAKER) (test 4.9 meq/L 3.5-5.1 twkd=941) CHLORIDE (BEAKER) (test 103 meq/L 98-107 rjxx=910) CO2 (BEAKER) (test 23 meq/L 22-29 fkyr=635) BLOOD UREA NITROGEN 32 mg/dL 7-21 (BEAKER) (test mbow=999) CREATININE (BEAKER) (test 1.74 mg/dL 0.57-1.25 lmgb=764) GLUCOSE RANDOM (BEAKER) 143 mg/dL 70-105 (test dnml=344) CALCIUM (BEAKER) (test 8.8 mg/dL 8.4-10.2 muvk=834) EGFR (BEAKER) (test 35 mL/min/1.73 sq m ESTIMATED GFR IS NOT mkgg=5859) ACCURATE CREATININE CLEARANCE IN PREDICTING GLOMERULAR FILTRATION RATE. ESTIMATED GFR IS NOT APPLICABLE FOR DIALYSIS PATIENTS. LACTIC ACID, [id number] 02:06:00 Test Item Value Reference Range Comments LACTATE BLOOD ARTERIAL (2) (BEAKER) (test 0.8 mmol/L 0.5-2.2 iyxb=8100) OXYGEN SATURATION, [id number] 01:59:00 Test Item Value Reference Range Comments O2 SATURATION (MEASURED) (BEAKER) (test bwiv=7123) 79.3 % BLOOD GAS, [id number] 01:58:00 Test Item Value Reference Range Comments PH ARTERIAL (BEAKER) (test fpme=806) 7.34 7.35-7.45 PCO2 ARTERIAL (BEAKER) (test onak=781) 50 mmHg 35-45 PO2 ARTERIAL (BEAKER) (test yskp=500) 78 mmHg 80-90 O2 SATURATION ARTERIAL (BEAKER) (test ymwm=387) 95.4 % 96.0-97.0 HCO3 ARTERIAL (BEAKER) (test fyna=952) 27 mmol/L 21-29 BASE EXCESS ARTERIAL (BEAKER) (test msfh=238) 0.3 mmol/L -2.0-3.0 PATIENT TEMPERATURE (BEAKER) (test wpbj=0491) 35.8 C FIO2 (BEAKER) (test guwf=7558) 60.0 % CBC W/PLT COUNT & AUTO [id number] 01:57:00 Test Item Value Reference Range Comments WHITE BLOOD CELL COUNT (BEAKER) (test xvvi=949) 9.7 K/ L 3.5-10.5 RED BLOOD CELL COUNT (BEAKER) (test eyed=631) 3.18 M/ L 3.93-5.22 HEMOGLOBIN (BEAKER) (test vsfz=122) 9.8 GM/DL 11.2-15.7 HEMATOCRIT (BEAKER) (test fuii=448) 33.3 % 34.1-44.9 MEAN CORPUSCULAR VOLUME (BEAKER) (test btaj=372) 104.7 fL 79.4-94.8 MEAN CORPUSCULAR HEMOGLOBIN (BEAKER) (test 30.8 pg 25.6-32.2 wnlc=217) MEAN CORPUSCULAR HEMOGLOBIN CONC (BEAKER) (test 29.4 GM/DL 32.2-35.5 bjzu=754) RED CELL DISTRIBUTION WIDTH (BEAKER) (test 17.5 % 11.7-14.4 vrfe=675) PLATELET COUNT (BEAKER) (test nlgz=420) 289 K/CU MM 150-450 MEAN PLATELET VOLUME (BEAKER) (test jvpq=389) 9.7 fL 9.4-12.3 NUCLEATED RED BLOOD CELLS (BEAKER) (test 0 /100 WBC 0-0 xmml=989) NEUTROPHILS RELATIVE PERCENT (BEAKER) (test 88 % qgya=340) LYMPHOCYTES RELATIVE PERCENT (BEAKER) (test 5 % kaqg=120) MONOCYTES RELATIVE PERCENT (BEAKER) (test 4 % maed=429) EOSINOPHILS RELATIVE PERCENT (BEAKER) (test 1 % nkdu=521) BASOPHILS RELATIVE PERCENT (BEAKER) (test 0 % ujio=678) NEUTROPHILS ABSOLUTE COUNT (BEAKER) (test 8.53 K/ L 1.56-6.13 xxet=221) LYMPHOCYTES ABSOLUTE COUNT (BEAKER) (test 0.48 K/ L 1.18-3.74 wqpk=567) MONOCYTES ABSOLUTE COUNT (BEAKER) (test 0.41 K/ L 0.24-0.36 mlyp=360) EOSINOPHILS ABSOLUTE COUNT (BEAKER) (test 0.13 K/ L 0.04-0.36 xslw=072) BASOPHILS ABSOLUTE COUNT (BEAKER) (test 0.04 K/ L 0.01-0.08 zmqw=154) IMMATURE GRANULOCYTES-RELATIVE PERCENT (BEAKER) 1 % 0-1 (test xfeo=1478) FILTER IONIZED [id number] 23:29:00 Test Item Value Reference Range Comments FILTER IONIZED CALCIUM (BEAKER) (test ubtk=1258) 1.14 mmol/L Reference Range: No NormalsBLOOD GAS, [id number] 23:29:00 Test Item Value Reference Range Comments PH ARTERIAL (BEAKER) (test tltl=459) 7.38 7.35-7.45 PCO2 ARTERIAL (BEAKER) (test lcht=383) 49 mmHg 35-45 PO2 ARTERIAL (BEAKER) (test ssqz=246) 202 mmHg 80-90 O2 SATURATION ARTERIAL (BEAKER) (test zisz=633) 99.4 % 96.0-97.0 HCO3 ARTERIAL (BEAKER) (test lxoo=100) 29 mmol/L 21-29 BASE EXCESS ARTERIAL (BEAKER) (test lryp=353) 2.6 mmol/L -2.0-3.0 PATIENT TEMPERATURE (BEAKER) (test lxot=5680) 35.6 C FIO2 (BEAKER) (test omfi=9747) 100.0 % HGB/HCT (H&H) - STAT [id number] 23:28:00 Test Item Value Reference Range Comments HEMOGLOBIN (BEAKER) (test taxk=517) 10.7 g/dL 12.0-15.0 HEMATOCRIT (BEAKER) (test cexm=488) 31.0 % 36.0-45.0 GLUCOSE-STAT [id number] 23:25:00 Test Item Value Reference Range Comments GLUCOSE RANDOM (BEAKER) (test kdzc=718) 97 mg/dL 70-110 SODIUM NA-STAT [id number] 23:25:00 Test Item Value Reference Range Comments SODIUM (BEAKER) (test anvr=409) 137 meq/L 135-148 POTASSIUM-STAT [id number] 23:25:00 Test Item Value Reference Range Comments POTASSIUM (BEAKER) (test oaxn=826) 4.4 meq/L 3.6-5.5 B-TYPE NATRIURETIC FACTOR (BNP)2018-06-29 21:59:00 Test Item Value Reference Range Comments B-TYPE NATRIURETIC PEPTIDE (BEAKER) (test 75184 pg/mL 0-100 duan=106) BASIC METABOLIC [id number] 21:31:00 Test Item Value Reference Range Comments SODIUM (BEAKER) (test 140 meq/L 136-145 hfcz=065) POTASSIUM (BEAKER) (test 4.6 meq/L 3.5-5.1 blth=103) CHLORIDE (BEAKER) (test 104 meq/L 98-107 lxqa=533) CO2 (BEAKER) (test 25 meq/L 22-29 qqev=729) BLOOD UREA NITROGEN 33 mg/dL 7-21 (BEAKER) (test tzax=678) CREATININE (BEAKER) (test 1.78 mg/dL 0.57-1.25 hcuo=793) GLUCOSE RANDOM (BEAKER) 79 mg/dL 70-105 (test cshz=456) CALCIUM (BEAKER) (test 9.4 mg/dL 8.4-10.2 fela=826) EGFR (BEAKER) (test 34 mL/min/1.73 sq m ESTIMATED GFR IS NOT ukfq=9008) ACCURATE CREATININE CLEARANCE IN PREDICTING GLOMERULAR FILTRATION RATE. ESTIMATED GFR IS NOT APPLICABLE FOR DIALYSIS PATIENTS. [id number] 21:18:00 Test Item Value Reference Range Comments PARTIAL THROMBOPLASTIN TIME (BEAKER) (test 36.1 seconds 22.5-36.0 cnet=201) PROTHROMBIN [id number] 21:17:00 Test Item Value Reference Range Comments PROTIME (BEAKER) (test qgtk=271) 15.1 seconds 11.7-14.7 INR (BEAKER) (test tqbd=442) 1.2 <=5.9 RECOMMENDED COUMADIN/WARFARIN INR THERAPY RANGESSTANDARD DOSE: 2.0 - 3.0 Includes: PROPHYLAXIS forvenous thrombosis, systemic embolization; TREATMENT for venous thrombosis and/or pulmonary embolus.HIGH RISK: Target INR is 2.5-3.5 for patients with mechanical heart valves.CBC W/PLT COUNT & AUTO [id number] 21:05:00 Test Item Value Reference Range Comments WHITE BLOOD CELL COUNT (BEAKER) (test rbpc=685) 5.3 K/ L 3.5-10.5 RED BLOOD CELL COUNT (BEAKER) (test gibv=111) 3.43 M/ L 3.93-5.22 HEMOGLOBIN (BEAKER) (test vwjb=260) 10.6 GM/DL 11.2-15.7 HEMATOCRIT (BEAKER) (test zjzj=276) 36.3 % 34.1-44.9 MEAN CORPUSCULAR VOLUME (BEAKER) (test dxcn=662) 105.8 fL 79.4-94.8 MEAN CORPUSCULAR HEMOGLOBIN (BEAKER) (test 30.9 pg 25.6-32.2 bnqw=959) MEAN CORPUSCULAR HEMOGLOBIN CONC (BEAKER) (test 29.2 GM/DL 32.2-35.5 ogua=535) RED CELL DISTRIBUTION WIDTH (BEAKER) (test 17.9 % 11.7-14.4 kwol=355) PLATELET COUNT (BEAKER) (test lmyi=181) 294 K/CU MM 150-450 MEAN PLATELET VOLUME (BEAKER) (test snux=452) 9.4 fL 9.4-12.3 NUCLEATED RED BLOOD CELLS (BEAKER) (test 0 /100 WBC 0-0 mzvk=447) NEUTROPHILS RELATIVE PERCENT (BEAKER) (test 75 % lyut=811) LYMPHOCYTES RELATIVE PERCENT (BEAKER) (test 12 % khit=165) MONOCYTES RELATIVE PERCENT (BEAKER) (test 8 % pcqr=229) EOSINOPHILS RELATIVE PERCENT (BEAKER) (test 4 % outy=742) BASOPHILS RELATIVE PERCENT (BEAKER) (test 1 % dwow=722) NEUTROPHILS ABSOLUTE COUNT (BEAKER) (test 3.97 K/ L 1.56-6.13 pcsw=582) LYMPHOCYTES ABSOLUTE COUNT (BEAKER) (test 0.64 K/ L 1.18-3.74 zmoh=423) MONOCYTES ABSOLUTE COUNT (BEAKER) (test 0.42 K/ L 0.24-0.36 tync=222) EOSINOPHILS ABSOLUTE COUNT (BEAKER) (test 0.19 K/ L 0.04-0.36 uxae=587) BASOPHILS ABSOLUTE COUNT (BEAKER) (test 0.05 K/ L 0.01-0.08 aewp=847) IMMATURE GRANULOCYTES-RELATIVE PERCENT (BEAKER) 0 % 0-1 (test bprx=9722) B-TYPE NATRIURETIC FACTOR (BNP)2017-08-18 15:08:00 Test Item Value Reference Range Comments B-TYPE NATRIURETIC PEPTIDE (BEAKER) (test 867 pg/mL 0-100 auhz=176) BASIC METABOLIC [id number] 15:05:00 Test Item Value Reference Range Comments SODIUM (BEAKER) (test 140 meq/L 136-145 mobd=829) POTASSIUM (BEAKER) (test 4.6 meq/L 3.5-5.1 nwof=770) CHLORIDE (BEAKER) (test 98 meq/L 98-107 uikp=992) CO2 (BEAKER) (test 32 meq/L 22-29 yrzf=771) BLOOD UREA NITROGEN 30 mg/dL 7-21 (BEAKER) (test llrt=577) CREATININE (BEAKER) (test 2.58 mg/dL 0.57-1.25 ajov=799) GLUCOSE RANDOM (BEAKER) 105 mg/dL 70-105 (test zogm=404) CALCIUM (BEAKER) (test 10.3 mg/dL 8.4-10.2 wjvm=967) EGFR (BEAKER) (test 22 mL/min/1.73 sq m ESTIMATED GFR IS NOT hxre=3536) ACCURATE CREATININE CLEARANCE IN PREDICTING GLOMERULAR FILTRATION RATE. ESTIMATED GFR IS NOT APPLICABLE FOR DIALYSIS PATIENTS. [id number] 15:02:00 Test Item Value Reference Range Comments MAGNESIUM (BEAKER) (test fnhb=151) 2.0 mg/dL 1.6-2.6 POCT-GLUCOSE [id number] 12:40:00 Test Item Value Reference Range Comments POC-GLUCOSE METER (BEAKER) 225 mg/dL 70-110 TESTED AT [address] (test lscp=9254) [facility] [address] POCT-GLUCOSE [id number] 08:32:00 Test Item Value Reference Range Comments POC-GLUCOSE METER (BEAKER) 148 mg/dL 70-110 TESTED AT [address] (test coka=9806) [place] [id number] BASIC METABOLIC [id number] 05:56:00 Test Item Value Reference Range Comments SODIUM (BEAKER) (test 138 meq/L 136-145 haps=172) POTASSIUM (BEAKER) (test 4.0 meq/L 3.5-5.1 qocf=436) CHLORIDE (BEAKER) (test 98 meq/L 98-107 fkpm=559) CO2 (BEAKER) (test 29 meq/L 22-29 gmvm=708) BLOOD UREA NITROGEN 14 mg/dL 7-21 (BEAKER) (test fayy=924) CREATININE (BEAKER) (test 1.85 mg/dL 0.57-1.25 ofwp=045) GLUCOSE RANDOM (BEAKER) 116 mg/dL 70-105 (test jqpa=421) CALCIUM (BEAKER) (test 9.9 mg/dL 8.4-10.2 cark=608) EGFR (BEAKER) (test 33 mL/min/1.73 sq m ESTIMATED GFR IS NOT ceak=4440) ACCURATE CREATININE CLEARANCE IN PREDICTING GLOMERULAR FILTRATION RATE. ESTIMATED GFR IS NOT APPLICABLE FOR DIALYSIS PATIENTS. POCT-GLUCOSE [id number] 21:38:00 Test Item Value Reference Range Comments POC-GLUCOSE METER (BEAKER) 162 mg/dL 70-110 TESTED AT [address] (test cxcw=3750) [facility] [address] POCT-GLUCOSE [id number] 17:02:00 Test Item Value Reference Range Comments POC-GLUCOSE METER (BEAKER) 160 mg/dL 70-110 TESTED AT [address] (test uasu=5188) [facility] [address] POCT-GLUCOSE [id number] 12:33:00 Test Item Value Reference Range Comments POC-GLUCOSE METER (BEAKER) 163 mg/dL 70-110 TESTED AT [address] (test fpbi=3608) [place] [id number] POCT-GLUCOSE [id number] 10:33:00 Test Item Value Reference Range Comments POC-GLUCOSE METER (BEAKER) 175 mg/dL 70-110 TESTED AT [address] (test skxl=7986) [place] [address] [id number] 04:51:00 Test Item Value Reference Range Comments MAGNESIUM (BEAKER) (test 2.0 mg/dL 1.6-2.6 Specimen slightly hemolyzed ztds=086) BASIC METABOLIC [id number] 04:51:00 Test Item Value Reference Range Comments SODIUM (BEAKER) (test 139 meq/L 136-145 qdmr=958) POTASSIUM (BEAKER) (test 3.8 meq/L 3.5-5.1 Specimen slightly eoyq=221) hemolyzed CHLORIDE (BEAKER) (test 99 meq/L 98-107 gxam=475) CO2 (BEAKER) (test 27 meq/L 22-29 vrif=732) BLOOD UREA NITROGEN 14 mg/dL 7-21 (BEAKER) (test wqpe=525) CREATININE (BEAKER) (test 1.61 mg/dL 0.57-1.25 Specimen slightly iyyj=013) hemolyzed GLUCOSE RANDOM (BEAKER) 139 mg/dL 70-105 (test aoab=506) CALCIUM (BEAKER) (test 10.0 mg/dL 8.4-10.2 coln=318) EGFR (BEAKER) (test 38 mL/min/1.73 sq m ESTIMATED GFR IS NOT wwik=6106) ACCURATE CREATININE CLEARANCE IN PREDICTING GLOMERULAR FILTRATION RATE. ESTIMATED GFR IS NOT APPLICABLE FOR DIALYSIS PATIENTS. POCT-GLUCOSE [id number] 21:32:00 Test Item Value Reference Range Comments POC-GLUCOSE METER (BEAKER) 176 mg/dL 70-110 TESTED AT [address] (test lune=3747) [place] [id number] POCT-GLUCOSE [id number] 17:22:00 Test Item Value Reference Range Comments POC-GLUCOSE METER (BEAKER) 232 mg/dL 70-110 TESTED AT [address] (test vcge=1535) [facility] [address] POCT-GLUCOSE [id number] 12:47:00 Test Item Value Reference Range Comments POC-GLUCOSE METER (BEAKER) 162 mg/dL 70-110 TESTED AT [address] (test xvwa=6102) [place] [id number] POCT-GLUCOSE [id number] 08:15:00 Test Item Value Reference Range Comments POC-GLUCOSE METER (BEAKER) 149 mg/dL 70-110 TESTED AT [address] (test netq=5257) [place] [address] [id number] 07:05:00 Test Item Value Reference Range Comments MAGNESIUM (BEAKER) (test dgns=852) 1.9 mg/dL 1.6-2.6 BASIC METABOLIC [id number] 07:05:00 Test Item Value Reference Range Comments SODIUM (BEAKER) (test 136 meq/L 136-145 kdua=002) POTASSIUM (BEAKER) (test 3.8 meq/L 3.5-5.1 gfry=773) CHLORIDE (BEAKER) (test 98 meq/L 98-107 relf=871) CO2 (BEAKER) (test 30 meq/L 22-29 drci=803) BLOOD UREA NITROGEN 14 mg/dL 7-21 (BEAKER) (test ugzw=858) CREATININE (BEAKER) (test 1.56 mg/dL 0.57-1.25 soeg=757) GLUCOSE RANDOM (BEAKER) 129 mg/dL 70-105 (test irvl=505) CALCIUM (BEAKER) (test 9.8 mg/dL 8.4-10.2 omyx=725) EGFR (BEAKER) (test 40 mL/min/1.73 sq m ESTIMATED GFR IS NOT hqzd=3187) ACCURATE CREATININE CLEARANCE IN PREDICTING GLOMERULAR FILTRATION RATE. ESTIMATED GFR IS NOT APPLICABLE FOR DIALYSIS PATIENTS. POCT-GLUCOSE [id number] 20:56:00 Test Item Value Reference Range Comments POC-GLUCOSE METER (BEAKER) 112 mg/dL 70-110 TESTED AT [address] (test nqea=7388) [place] [id number] POCT-GLUCOSE [id number] 17:48:00 Test Item Value Reference Range Comments POC-GLUCOSE METER (BEAKER) 213 mg/dL 70-110 TESTED AT [address] (test osma=0153) [place] [id number] POCT-GLUCOSE [id number] 11:40:00 Test Item Value Reference Range Comments POC-GLUCOSE METER (BEAKER) 208 mg/dL 70-110 TESTED AT [address] (test uyyv=4564) [place] [id number] POCT-GLUCOSE [id number] 07:43:00 Test Item Value Reference Range Comments POC-GLUCOSE METER (BEAKER) 144 mg/dL 70-110 TESTED AT [address] (test dcta=9885) [place] [address] [id number] 04:52:00 Test Item Value Reference Range Comments MAGNESIUM (BEAKER) (test 2.0 mg/dL 1.6-2.6 Specimen slightly hemolyzed fask=189) BASIC METABOLIC [id number] 04:52:00 Test Item Value Reference Range Comments SODIUM (BEAKER) (test 133 meq/L 136-145 iiyv=754) POTASSIUM (BEAKER) (test 4.7 meq/L 3.5-5.1 Specimen slightly xjlb=066) hemolyzed CHLORIDE (BEAKER) (test 97 meq/L 98-107 zmjo=838) CO2 (BEAKER) (test 25 meq/L 22-29 bveu=636) BLOOD UREA NITROGEN 17 mg/dL 7-21 (BEAKER) (test fehh=259) CREATININE (BEAKER) (test 1.63 mg/dL 0.57-1.25 Specimen slightly dqsp=711) hemolyzed GLUCOSE RANDOM (BEAKER) 141 mg/dL 70-105 (test qqxm=415) CALCIUM (BEAKER) (test 9.8 mg/dL 8.4-10.2 cmhf=017) EGFR (BEAKER) (test 38 mL/min/1.73 sq m ESTIMATED GFR IS NOT usto=0270) ACCURATE CREATININE CLEARANCE IN PREDICTING GLOMERULAR FILTRATION RATE. ESTIMATED GFR IS NOT APPLICABLE FOR DIALYSIS PATIENTS. POCT-GLUCOSE [id number] 21:29:00 Test Item Value Reference Range Comments POC-GLUCOSE METER (BEAKER) 198 mg/dL 70-110 TESTED AT [address] (test mndx=7879) [place] [id number] POCT-GLUCOSE [id number] 17:54:00 Test Item Value Reference Range Comments POC-GLUCOSE METER (BEAKER) 176 mg/dL 70-110 TESTED AT [facility] [address] [facility] (test lush=6988) [facility] [address] POCT-GLUCOSE [id number] 07:05:00 Test Item Value Reference Range Comments POC-GLUCOSE METER (BEAKER) 137 mg/dL 70-110 TESTED AT [facility] [address] [facility] (test xuwq=4372) [facility] [address] [id number] 06:53:00 Test Item Value Reference Range Comments MAGNESIUM (BEAKER) (test immm=996) 2.0 mg/dL 1.6-2.6 BASIC METABOLIC [id number] 05:37:00 Test Item Value Reference Range Comments SODIUM (BEAKER) (test 136 meq/L 136-145 wpbr=726) POTASSIUM (BEAKER) (test 3.7 meq/L 3.5-5.1 pozj=655) CHLORIDE (BEAKER) (test 97 meq/L 98-107 mgmd=262) CO2 (BEAKER) (test 30 meq/L 22-29 evgb=617) BLOOD UREA NITROGEN 17 mg/dL 7-21 (BEAKER) (test hhil=360) CREATININE (BEAKER) (test 1.60 mg/dL 0.57-1.25 swzo=551) GLUCOSE RANDOM (BEAKER) 116 mg/dL 70-105 (test nvye=772) CALCIUM (BEAKER) (test 9.4 mg/dL 8.4-10.2 hpyw=891) EGFR (BEAKER) (test 39 mL/min/1.73 sq m ESTIMATED GFR IS NOT wklk=2583) ACCURATE CREATININE CLEARANCE IN PREDICTING GLOMERULAR FILTRATION RATE. ESTIMATED GFR IS NOT APPLICABLE FOR DIALYSIS PATIENTS. CBC W/PLT COUNT & AUTO [id number] 05:02:00 Test Item Value Reference Range Comments WHITE BLOOD CELL COUNT (BEAKER) (test agyn=298) 8.7 K/ L 3.5-10.5 RED BLOOD CELL COUNT (BEAKER) (test mtwg=285) 2.43 M/ L 3.93-5.22 HEMOGLOBIN (BEAKER) (test gvph=151) 7.5 GM/DL 11.2-15.7 HEMATOCRIT (BEAKER) (test vqhu=419) 24.1 % 34.1-44.9 MEAN CORPUSCULAR VOLUME (BEAKER) (test emym=969) 99.2 fL 79.4-94.8 MEAN CORPUSCULAR HEMOGLOBIN (BEAKER) (test 30.9 pg 25.6-32.2 uqaf=196) MEAN CORPUSCULAR HEMOGLOBIN CONC (BEAKER) (test 31.1 GM/DL 32.2-35.5 qsjg=306) RED CELL DISTRIBUTION WIDTH (BEAKER) (test 15.8 % 11.7-14.4 hpoy=236) PLATELET COUNT (BEAKER) (test cayc=736) 586 K/CU MM 150-450 MEAN PLATELET VOLUME (BEAKER) (test bfkj=098) 9.5 fL 9.4-12.3 NUCLEATED RED BLOOD CELLS (BEAKER) (test 0 /100 WBC 0-0 fdlo=057) NEUTROPHILS RELATIVE PERCENT (BEAKER) (test 74 % djhf=519) LYMPHOCYTES RELATIVE PERCENT (BEAKER) (test 15 % wxhr=476) MONOCYTES RELATIVE PERCENT (BEAKER) (test 8 % jdwu=535) EOSINOPHILS RELATIVE PERCENT (BEAKER) (test 2 % ilsm=141) BASOPHILS RELATIVE PERCENT (BEAKER) (test 1 % ytcy=982) NEUTROPHILS ABSOLUTE COUNT (BEAKER) (test 6.41 K/ L 1.56-6.13 hqsd=011) LYMPHOCYTES ABSOLUTE COUNT (BEAKER) (test 1.32 K/ L 1.18-3.74 wvlq=478) MONOCYTES ABSOLUTE COUNT (BEAKER) (test 0.65 K/ L 0.24-0.36 pjvs=003) EOSINOPHILS ABSOLUTE COUNT (BEAKER) (test 0.20 K/ L 0.04-0.36 llxb=724) BASOPHILS ABSOLUTE COUNT (BEAKER) (test 0.08 K/ L 0.01-0.08 eqae=591) IMMATURE GRANULOCYTES-RELATIVE PERCENT (BEAKER) 0 % 0-1 (test choj=7196) POCT-GLUCOSE [id number] 21:28:00 Test Item Value Reference Range Comments POC-GLUCOSE METER (BEAKER) 216 mg/dL 70-110 TESTED AT [facility] [address] (test kgox=5797) [facility] [address] POCT-GLUCOSE [id number] 18:25:00 Test Item Value Reference Range Comments POC-GLUCOSE METER (BEAKER) 182 mg/dL 70-110 TESTED AT [facility] [address] [facility] (test tuyb=3585) [facility] [address] POCT-GLUCOSE [id number] 09:37:00 Test Item Value Reference Range Comments POC-GLUCOSE METER (BEAKER) 155 mg/dL 70-110 TESTED AT [facility] [address] [facility] (test yfrc=2022) [facility] [address] CALCIUM, [id number] 07:37:00 Test Item Value Reference Range Comments CALCIUM IONIZED (BEAKER) (test yayk=998) 1.11 mmol/L 1.12-1.27 PH, BLOOD (BEAKER) (test rjgy=8155) 7.39 [id number] 07:10:00 Test Item Value Reference Range Comments FERRITIN (BEAKER) (test nndn=338) 445 ng/mL 5-275 IRON, TIBC, % SAT. (WITHOUT FERRITIN)2017-08-04 07:04:00 Test Item Value Reference Range Comments IRON (BEAKER) (test wsjs=949) 55 ug/dL 40-160 TOTAL IRON BINDING CAPACITY (BEAKER) (test 198 ug/dL 250-450 tgig=829) IRON % SATURATION (2) (BEAKER) (test qisc=7166) 28 % 20-55 [id number] 06:57:00 Test Item Value Reference Range Comments PHOSPHORUS (BEAKER) (test chno=987) 4.3 mg/dL 2.3-4.7 [id number] 06:57:00 Test Item Value Reference Range Comments MAGNESIUM (BEAKER) (test tevh=061) 2.1 mg/dL 1.6-2.6 BASIC METABOLIC [id number] 06:57:00 Test Item Value Reference Range Comments SODIUM (BEAKER) (test 138 meq/L 136-145 jbbf=281) POTASSIUM (BEAKER) (test 3.8 meq/L 3.5-5.1 rpkz=531) CHLORIDE (BEAKER) (test 99 meq/L 98-107 wfil=907) CO2 (BEAKER) (test 29 meq/L 22-29 mazh=683) BLOOD UREA NITROGEN 18 mg/dL 7-21 (BEAKER) (test riwl=685) CREATININE (BEAKER) (test 1.75 mg/dL 0.57-1.25 hlwn=477) GLUCOSE RANDOM (BEAKER) 138 mg/dL 70-105 (test gwfe=649) CALCIUM (BEAKER) (test 9.7 mg/dL 8.4-10.2 alug=081) EGFR (BEAKER) (test 35 mL/min/1.73 sq m ESTIMATED GFR IS NOT ciiw=4446) ACCURATE CREATININE CLEARANCE IN PREDICTING GLOMERULAR FILTRATION RATE. ESTIMATED GFR IS NOT APPLICABLE FOR DIALYSIS PATIENTS. B-TYPE NATRIURETIC FACTOR (BNP)2017-08-04 06:54:00 Test Item Value Reference Range Comments B-TYPE NATRIURETIC PEPTIDE (BEAKER) (test 778 pg/mL 0-100 laol=703) RETICULOCYTE [id number] 06:39:00 Test Item Value Reference Range Comments RETICULOCYTE COUNT PCT (BEAKER) (test vgrg=453) 8.3 % 0.5-1.7 CBC W/PLT COUNT & AUTO [id number] 06:39:00 Test Item Value Reference Range Comments WHITE BLOOD CELL COUNT (BEAKER) (test onjo=188) 9.0 K/ L 3.5-10.5 RED BLOOD CELL COUNT (BEAKER) (test kpnf=742) 2.55 M/ L 3.93-5.22 HEMOGLOBIN (BEAKER) (test hssk=167) 7.8 GM/DL 11.2-15.7 HEMATOCRIT (BEAKER) (test jmct=079) 25.4 % 34.1-44.9 MEAN CORPUSCULAR VOLUME (BEAKER) (test pzhq=924) 99.6 fL 79.4-94.8 MEAN CORPUSCULAR HEMOGLOBIN (BEAKER) (test 30.6 pg 25.6-32.2 akza=983) MEAN CORPUSCULAR HEMOGLOBIN CONC (BEAKER) (test 30.7 GM/DL 32.2-35.5 bjoh=770) RED CELL DISTRIBUTION WIDTH (BEAKER) (test 15.9 % 11.7-14.4 dbeu=989) PLATELET COUNT (BEAKER) (test soyo=392) 591 K/CU MM 150-450 MEAN PLATELET VOLUME (BEAKER) (test xljg=390) 9.5 fL 9.4-12.3 NUCLEATED RED BLOOD CELLS (BEAKER) (test 0 /100 WBC 0-0 sxmt=979) NEUTROPHILS RELATIVE PERCENT (BEAKER) (test 77 % zdeq=210) LYMPHOCYTES RELATIVE PERCENT (BEAKER) (test 13 % gqhr=965) MONOCYTES RELATIVE PERCENT (BEAKER) (test 7 % iyqk=156) EOSINOPHILS RELATIVE PERCENT (BEAKER) (test 2 % jlrc=984) BASOPHILS RELATIVE PERCENT (BEAKER) (test 1 % uyfn=035) NEUTROPHILS ABSOLUTE COUNT (BEAKER) (test 6.97 K/ L 1.56-6.13 cliv=634) LYMPHOCYTES ABSOLUTE COUNT (BEAKER) (test 1.13 K/ L 1.18-3.74 xaqq=578) MONOCYTES ABSOLUTE COUNT (BEAKER) (test 0.65 K/ L 0.24-0.36 tjzb=369) EOSINOPHILS ABSOLUTE COUNT (BEAKER) (test 0.18 K/ L 0.04-0.36 frnj=130) BASOPHILS ABSOLUTE COUNT (BEAKER) (test 0.07 K/ L 0.01-0.08 akty=704) IMMATURE GRANULOCYTES-RELATIVE PERCENT (BEAKER) 0 % 0-1 (test fnla=9216) POCT-GLUCOSE [id number] 20:56:00 Test Item Value Reference Range Comments POC-GLUCOSE METER (BEAKER) 167 mg/dL 70-110 TESTED AT [address] (test fblq=1844) [place] [address] POCT-GLUCOSE [id number] 16:36:00 Test Item Value Reference Range Comments POC-GLUCOSE METER (BEAKER) 200 mg/dL 70-110 TESTED AT [address] (test cydo=2777) [place] [address] POCT-GLUCOSE [id number] 12:59:00 Test Item Value Reference Range Comments POC-GLUCOSE METER (BEAKER) 202 mg/dL 70-110 TESTED AT [address] (test uhfr=2843) [place] [address] POCT-GLUCOSE [id number] 07:37:00 Test Item Value Reference Range Comments POC-GLUCOSE METER (BEAKER) 154 mg/dL 70-110 TESTED AT [address] (test wkny=9277) [place] [address] CBC W/PLT COUNT & AUTO [id number] 06:49:00 Test Item Value Reference Range Comments WHITE BLOOD CELL COUNT (BEAKER) (test ywui=400) 9.8 K/ L 3.5-10.5 RED BLOOD CELL COUNT (BEAKER) (test lyug=194) 2.62 M/ L 3.93-5.22 HEMOGLOBIN (BEAKER) (test iozt=128) 8.1 GM/DL 11.2-15.7 HEMATOCRIT (BEAKER) (test pbvb=106) 25.9 % 34.1-44.9 MEAN CORPUSCULAR VOLUME (BEAKER) (test klkz=981) 98.9 fL 79.4-94.8 MEAN CORPUSCULAR HEMOGLOBIN (BEAKER) (test 30.9 pg 25.6-32.2 qytt=131) MEAN CORPUSCULAR HEMOGLOBIN CONC (BEAKER) (test 31.3 GM/DL 32.2-35.5 lfeh=823) RED CELL DISTRIBUTION WIDTH (BEAKER) (test 15.8 % 11.7-14.4 khfj=611) PLATELET COUNT (BEAKER) (test ugkn=499) 667 K/CU MM 150-450 MEAN PLATELET VOLUME (BEAKER) (test nzlx=040) 9.4 fL 9.4-12.3 NUCLEATED RED BLOOD CELLS (BEAKER) (test 0 /100 WBC 0-0 hzzj=750) NEUTROPHILS RELATIVE PERCENT (BEAKER) (test 77 % vwtl=257) LYMPHOCYTES RELATIVE PERCENT (BEAKER) (test 13 % ocfx=714) MONOCYTES RELATIVE PERCENT (BEAKER) (test 7 % vpir=921) EOSINOPHILS RELATIVE PERCENT (BEAKER) (test 2 % lwup=368) BASOPHILS RELATIVE PERCENT (BEAKER) (test 1 % qxff=563) NEUTROPHILS ABSOLUTE COUNT (BEAKER) (test 7.57 K/ L 1.56-6.13 lldd=751) LYMPHOCYTES ABSOLUTE COUNT (BEAKER) (test 1.23 K/ L 1.18-3.74 frer=892) MONOCYTES ABSOLUTE COUNT (BEAKER) (test 0.69 K/ L 0.24-0.36 pscf=979) EOSINOPHILS ABSOLUTE COUNT (BEAKER) (test 0.16 K/ L 0.04-0.36 xwgu=497) BASOPHILS ABSOLUTE COUNT (BEAKER) (test 0.08 K/ L 0.01-0.08 egft=943) IMMATURE GRANULOCYTES-RELATIVE PERCENT (BEAKER) 1 % 0-1 (test mvkt=3863) CALCIUM, [id number] 06:38:00 Test Item Value Reference Range Comments CALCIUM IONIZED (BEAKER) (test mxdq=769) 1.07 mmol/L 1.12-1.27 PH, BLOOD (BEAKER) (test mblo=1673) 7.42 [id number] 06:08:00 Test Item Value Reference Range Comments PHOSPHORUS (BEAKER) (test nbeg=656) 4.3 mg/dL 2.3-4.7 [id number] 06:08:00 Test Item Value Reference Range Comments MAGNESIUM (BEAKER) (test kuzm=322) 2.4 mg/dL 1.6-2.6 BASIC METABOLIC [id number] 06:08:00 Test Item Value Reference Range Comments SODIUM (BEAKER) (test 138 meq/L 136-145 hkmd=667) POTASSIUM (BEAKER) (test 4.0 meq/L 3.5-5.1 wxpp=614) CHLORIDE (BEAKER) (test 99 meq/L 98-107 hapm=717) CO2 (BEAKER) (test 29 meq/L 22-29 bolv=167) BLOOD UREA NITROGEN 15 mg/dL 7-21 (BEAKER) (test xgvl=174) CREATININE (BEAKER) (test 1.64 mg/dL 0.57-1.25 ctcg=650) GLUCOSE RANDOM (BEAKER) 135 mg/dL 70-105 (test czdm=028) CALCIUM (BEAKER) (test 9.5 mg/dL 8.4-10.2 etuj=663) EGFR (BEAKER) (test 38 mL/min/1.73 sq m ESTIMATED GFR IS NOT nnmo=4476) ACCURATE CREATININE CLEARANCE IN PREDICTING GLOMERULAR FILTRATION RATE. ESTIMATED GFR IS NOT APPLICABLE FOR DIALYSIS PATIENTS. POCT-GLUCOSE [id number] 21:13:00 Test Item Value Reference Range Comments POC-GLUCOSE METER (BEAKER) 145 mg/dL 70-110 TESTED AT [facility] [address] [place] [address] (test frai=1878) [facility] [address] POCT-GLUCOSE [id number] 17:08:00 Test Item Value Reference Range Comments POC-GLUCOSE METER (BEAKER) 134 mg/dL 70-110 TESTED AT [place] [id number] [facility] (test ayam=7218) [facility] [address] POCT-GLUCOSE [id number] 11:44:00 Test Item Value Reference Range Comments POC-GLUCOSE METER (BEAKER) 159 mg/dL 70-110 TESTED AT [facility] [address] [facility] (test beqq=6367) [facility] [address] POCT-GLUCOSE [id number] 08:07:00 Test Item Value Reference Range Comments POC-GLUCOSE METER (BEAKER) 152 mg/dL 70-110 TESTED AT [facility] [address] [facility] (test xnxr=4786) [facility] [address] CALCIUM, [id number] 05:26:00 Test Item Value Reference Range Comments CALCIUM IONIZED (BEAKER) (test qzzs=196) 1.10 mmol/L 1.12-1.27 PH, BLOOD (BEAKER) (test mdpz=4196) 7.42 [id number] 05:05:00 Test Item Value Reference Range Comments PHOSPHORUS (BEAKER) (test xsum=826) 4.6 mg/dL 2.3-4.7 [id number] 05:05:00 Test Item Value Reference Range Comments MAGNESIUM (BEAKER) (test ytlz=499) 1.6 mg/dL 1.6-2.6 COMPREHENSIVE METABOLIC [id number] 05:05:00 Test Item Value Reference Range Comments TOTAL PROTEIN (BEAKER) 6.9 gm/dL 6.0-8.3 (test vwnd=595) ALBUMIN (BEAKER) (test 3.2 g/dL 3.5-5.0 kvdi=6534) ALKALINE PHOSPHATASE 55 U/L 40-150 (BEAKER) (test axsv=770) BILIRUBIN TOTAL (BEAKER) 0.6 mg/dL 0.2-1.2 (test jejj=085) SODIUM (BEAKER) (test 139 meq/L 136-145 itas=156) POTASSIUM (BEAKER) (test 3.9 meq/L 3.5-5.1 yfoz=080) CHLORIDE (BEAKER) (test 100 meq/L 98-107 efta=707) CO2 (BEAKER) (test 27 meq/L 22-29 rkfh=615) BLOOD UREA NITROGEN 15 mg/dL 7-21 (BEAKER) (test bikb=405) CREATININE (BEAKER) (test 1.55 mg/dL 0.57-1.25 ycml=067) GLUCOSE RANDOM (BEAKER) 125 mg/dL 70-105 (test xzni=995) CALCIUM (BEAKER) (test 9.2 mg/dL 8.4-10.2 jyat=016) AST (SGOT) (BEAKER) (test 16 U/L 5-34 xhjc=117) ALT (SGPT) (BEAKER) (test 11 U/L 6-55 gfus=006) EGFR (BEAKER) (test 40 mL/min/1.73 sq m ESTIMATED GFR IS NOT imzl=9086) ACCURATE CREATININE CLEARANCE IN PREDICTING GLOMERULAR FILTRATION RATE. ESTIMATED GFR IS NOT APPLICABLE FOR DIALYSIS PATIENTS. CBC W/PLT COUNT & AUTO [id number] 04:57:00 Test Item Value Reference Range Comments WHITE BLOOD CELL COUNT (BEAKER) (test lkiz=007) 10.8 K/ L 3.5-10.5 RED BLOOD CELL COUNT (BEAKER) (test zzgz=023) 2.57 M/ L 3.93-5.22 HEMOGLOBIN (BEAKER) (test eqhy=726) 7.9 GM/DL 11.2-15.7 HEMATOCRIT (BEAKER) (test rgut=357) 25.2 % 34.1-44.9 MEAN CORPUSCULAR VOLUME (BEAKER) (test qice=766) 98.1 fL 79.4-94.8 MEAN CORPUSCULAR HEMOGLOBIN (BEAKER) (test 30.7 pg 25.6-32.2 zehk=636) MEAN CORPUSCULAR HEMOGLOBIN CONC (BEAKER) (test 31.3 GM/DL 32.2-35.5 xoot=032) RED CELL DISTRIBUTION WIDTH (BEAKER) (test 15.9 % 11.7-14.4 nmop=435) PLATELET COUNT (BEAKER) (test kvjk=739) 623 K/CU MM 150-450 MEAN PLATELET VOLUME (BEAKER) (test eqba=227) 9.4 fL 9.4-12.3 NUCLEATED RED BLOOD CELLS (BEAKER) (test 0 /100 WBC 0-0 uxlu=007) NEUTROPHILS RELATIVE PERCENT (BEAKER) (test 79 % oufm=867) LYMPHOCYTES RELATIVE PERCENT (BEAKER) (test 12 % qevp=482) MONOCYTES RELATIVE PERCENT (BEAKER) (test 7 % duku=773) EOSINOPHILS RELATIVE PERCENT (BEAKER) (test 2 % uwqk=162) BASOPHILS RELATIVE PERCENT (BEAKER) (test 1 % jwhf=286) NEUTROPHILS ABSOLUTE COUNT (BEAKER) (test 8.49 K/ L 1.56-6.13 getz=413) LYMPHOCYTES ABSOLUTE COUNT (BEAKER) (test 1.28 K/ L 1.18-3.74 zcwk=129) MONOCYTES ABSOLUTE COUNT (BEAKER) (test 0.74 K/ L 0.24-0.36 ghen=327) EOSINOPHILS ABSOLUTE COUNT (BEAKER) (test 0.18 K/ L 0.04-0.36 llmi=656) BASOPHILS ABSOLUTE COUNT (BEAKER) (test 0.05 K/ L 0.01-0.08 pkkb=498) IMMATURE GRANULOCYTES-RELATIVE PERCENT (BEAKER) 1 % 0-1 (test gsry=4619) POCT-GLUCOSE [id number] 01:29:00 Test Item Value Reference Range Comments POC-GLUCOSE METER (BEAKER) 182 mg/dL 70-110 TESTED AT [address] (test kxnm=3523) [place] [address] POCT-GLUCOSE [id number] 22:32:00 Test Item Value Reference Range Comments POC-GLUCOSE METER (BEAKER) 204 mg/dL 70-110 TESTED AT [address] (test newx=3113) [place] [id number] POCT-GLUCOSE [id number] 18:53:00 Test Item Value Reference Range Comments POC-GLUCOSE METER (BEAKER) 154 mg/dL 70-110 TESTED AT [address] (test coeh=2042) [place] [id number] POCT-GLUCOSE [id number] 15:50:00 Test Item Value Reference Range Comments POC-GLUCOSE METER (BEAKER) 172 mg/dL 70-110 TESTED AT [address] (test jxwu=1144) [place] [address] B-TYPE NATRIURETIC FACTOR (BNP)2017-08-01 15:41:00 Test Item Value Reference Range Comments B-TYPE NATRIURETIC PEPTIDE (BEAKER) (test 1253 pg/mL 0-100 aekl=824) RAD, CHEST, 1 VIEW, NON [id number] 15:00:00Reason for exam:->SOBShould this be performed at the bedside?->YesFINAL REPORT Chest one view compared to July 28, 2017 Discussion: There is cardiac prominence. Lungs are grossly clear. No effusion or pneumothorax. There is either hiatal hernia or aortic tortuosity. IMPRESSIONS: No significant change. Signed: Tony Hsueport Verified Date/Time: 08/01/2017 15:00:05 Reading Location: [facility] B1 C013W Consult Reading Room Electronicallysigned by: TONY HSU M.D. on 08/01/2017 03:00 PMPOCT-GLUCOSE [id number] 09:28:00 Test Item Value Reference Range Comments POC-GLUCOSE METER (BEAKER) 155 mg/dL 70-110 TESTED AT [facility] [address] [facility] (test xoex=4722) [facility] [address] BASIC METABOLIC [id number] 08:00:00 Test Item Value Reference Range Comments SODIUM (BEAKER) (test 138 meq/L 136-145 crre=192) POTASSIUM (BEAKER) (test 3.8 meq/L 3.5-5.1 krmk=980) CHLORIDE (BEAKER) (test 100 meq/L 98-107 reei=771) CO2 (BEAKER) (test 27 meq/L 22-29 hkfx=701) BLOOD UREA NITROGEN 14 mg/dL 7-21 (BEAKER) (test fntw=686) CREATININE (BEAKER) (test 1.47 mg/dL 0.57-1.25 upft=831) GLUCOSE RANDOM (BEAKER) 150 mg/dL 70-105 (test dgnp=561) CALCIUM (BEAKER) (test 9.0 mg/dL 8.4-10.2 hilj=476) EGFR (BEAKER) (test 43 mL/min/1.73 sq m ESTIMATED GFR IS NOT dzti=0478) ACCURATE CREATININE CLEARANCE IN PREDICTING GLOMERULAR FILTRATION RATE. ESTIMATED GFR IS NOT APPLICABLE FOR DIALYSIS PATIENTS. CBC W/PLT COUNT & AUTO [id number] 07:54:00 Test Item Value Reference Range Comments WHITE BLOOD CELL COUNT (BEAKER) (test kknc=679) 12.4 K/ L 3.5-10.5 RED BLOOD CELL COUNT (BEAKER) (test aqpx=847) 2.57 M/ L 3.93-5.22 HEMOGLOBIN (BEAKER) (test wccl=296) 7.7 GM/DL 11.2-15.7 HEMATOCRIT (BEAKER) (test kqju=305) 25.0 % 34.1-44.9 MEAN CORPUSCULAR VOLUME (BEAKER) (test ybug=376) 97.3 fL 79.4-94.8 MEAN CORPUSCULAR HEMOGLOBIN (BEAKER) (test 30.0 pg 25.6-32.2 xlec=663) MEAN CORPUSCULAR HEMOGLOBIN CONC (BEAKER) (test 30.8 GM/DL 32.2-35.5 fpne=094) RED CELL DISTRIBUTION WIDTH (BEAKER) (test 15.8 % 11.7-14.4 nxzc=476) PLATELET COUNT (BEAKER) (test bppm=336) 582 K/CU MM 150-450 MEAN PLATELET VOLUME (BEAKER) (test owrl=702) 9.5 fL 9.4-12.3 NUCLEATED RED BLOOD CELLS (BEAKER) (test 0 /100 WBC 0-0 niml=844) NEUTROPHILS RELATIVE PERCENT (BEAKER) (test 82 % fkaw=464) LYMPHOCYTES RELATIVE PERCENT (BEAKER) (test 10 % kegf=647) MONOCYTES RELATIVE PERCENT (BEAKER) (test 6 % vyue=878) EOSINOPHILS RELATIVE PERCENT (BEAKER) (test 1 % xycy=804) BASOPHILS RELATIVE PERCENT (BEAKER) (test 1 % ukjj=340) NEUTROPHILS ABSOLUTE COUNT (BEAKER) (test 10.08 K/ L 1.56-6.13 gqkj=935) LYMPHOCYTES ABSOLUTE COUNT (BEAKER) (test 1.19 K/ L 1.18-3.74 cxki=080) MONOCYTES ABSOLUTE COUNT (BEAKER) (test 0.74 K/ L 0.24-0.36 fqfi=768) EOSINOPHILS ABSOLUTE COUNT (BEAKER) (test 0.16 K/ L 0.04-0.36 xqln=150) BASOPHILS ABSOLUTE COUNT (BEAKER) (test 0.10 K/ L 0.01-0.08 ejui=676) IMMATURE GRANULOCYTES-RELATIVE PERCENT (BEAKER) 1 % 0-1 (test bomm=1137) POCT-GLUCOSE [id number] 21:34:00 Test Item Value Reference Range Comments POC-GLUCOSE METER (BEAKER) 153 mg/dL 70-110 TESTED AT [facility] [address] (test peeq=4730) [facility] [address] POCT-GLUCOSE [id number] 17:34:00 Test Item Value Reference Range Comments POC-GLUCOSE METER (BEAKER) 165 mg/dL 70-110 TESTED AT [address] (test fzwq=4564) [facility] [address] POCT-GLUCOSE [id number] 14:33:00 Test Item Value Reference Range Comments POC-GLUCOSE METER (BEAKER) 208 mg/dL 70-110 TESTED AT [address] (test ugfq=8833) [facility] [address] POCT-GLUCOSE [id number] 12:54:00 Test Item Value Reference Range Comments POC-GLUCOSE METER (BEAKER) 218 mg/dL 70-110 TESTED AT [address] (test himl=1490) [facility] [address] POCT-GLUCOSE [id number] 10:34:00 Test Item Value Reference Range Comments POC-GLUCOSE METER (BEAKER) 204 mg/dL 70-110 TESTED AT [address] (test qmcl=0136) [facility] [address] POCT-GLUCOSE [id number] 08:41:00 Test Item Value Reference Range Comments POC-GLUCOSE METER (BEAKER) 201 mg/dL 70-110 TESTED AT [address] (test megp=9187) [facility] [address] [id number] 05:54:00 Test Item Value Reference Range Comments MAGNESIUM (BEAKER) (test jgxs=820) 1.8 mg/dL 1.6-2.6 BASIC METABOLIC [id number] 05:54:00 Test Item Value Reference Range Comments SODIUM (BEAKER) (test 138 meq/L 136-145 xern=842) POTASSIUM (BEAKER) (test 3.6 meq/L 3.5-5.1 pscs=654) CHLORIDE (BEAKER) (test 100 meq/L 98-107 dgpl=191) CO2 (BEAKER) (test 25 meq/L 22-29 fujl=794) BLOOD UREA NITROGEN 14 mg/dL 7-21 (BEAKER) (test mehf=335) CREATININE (BEAKER) (test 1.42 mg/dL 0.57-1.25 wucv=749) GLUCOSE RANDOM (BEAKER) 145 mg/dL 70-105 (test gzxu=222) CALCIUM (BEAKER) (test 9.4 mg/dL 8.4-10.2 ipiz=566) EGFR (BEAKER) (test 44 mL/min/1.73 sq m ESTIMATED GFR IS NOT cyty=9495) ACCURATE CREATININE CLEARANCE IN PREDICTING GLOMERULAR FILTRATION RATE. ESTIMATED GFR IS NOT APPLICABLE FOR DIALYSIS PATIENTS. CBC (HEMOGRAM ONLY)2017-07-31 05:42:00 Test Item Value Reference Range Comments WHITE BLOOD CELL COUNT (BEAKER) (test xtgw=993) 13.3 K/ L 3.5-10.5 RED BLOOD CELL COUNT (BEAKER) (test yaqo=371) 2.65 M/ L 3.93-5.22 HEMOGLOBIN (BEAKER) (test dwnm=498) 7.9 GM/DL 11.2-15.7 HEMATOCRIT (BEAKER) (test zgyx=619) 25.9 % 34.1-44.9 MEAN CORPUSCULAR VOLUME (BEAKER) (test vsvb=713) 97.7 fL 79.4-94.8 MEAN CORPUSCULAR HEMOGLOBIN (BEAKER) (test 29.8 pg 25.6-32.2 fexb=818) MEAN CORPUSCULAR HEMOGLOBIN CONC (BEAKER) (test 30.5 GM/DL 32.2-35.5 dozu=607) RED CELL DISTRIBUTION WIDTH (BEAKER) (test 15.3 % 11.7-14.4 eoze=014) PLATELET COUNT (BEAKER) (test fwbu=151) 580 K/CU MM 150-450 MEAN PLATELET VOLUME (BEAKER) (test rkmk=336) 9.7 fL 9.4-12.3 NUCLEATED RED BLOOD CELLS (BEAKER) (test 0 /100 WBC 0-0 vkjm=849) POCT-GLUCOSE [id number] 21:21:00 Test Item Value Reference Range Comments POC-GLUCOSE METER (BEAKER) 206 mg/dL 70-110 TESTED AT [address] (test jhnj=5592) [facility] [address] POCT-GLUCOSE [id number] 17:50:00 Test Item Value Reference Range Comments POC-GLUCOSE METER (BEAKER) 160 mg/dL 70-110 TESTED AT [address] (test iuej=1107) [facility] [address] POCT-GLUCOSE [id number] 12:12:00 Test Item Value Reference Range Comments POC-GLUCOSE METER (BEAKER) 214 mg/dL 70-110 TESTED AT [address] (test eojl=8822) [place] [address] POCT-GLUCOSE [id number] 07:59:00 Test Item Value Reference Range Comments POC-GLUCOSE METER (BEAKER) 146 mg/dL 70-110 TESTED AT [facility] [address] [facility] (test ltfq=4288) [facility] [address] CALCIUM, [id number] 07:23:00 Test Item Value Reference Range Comments CALCIUM IONIZED (BEAKER) (test rvkk=450) 1.11 mmol/L 1.12-1.27 PH, BLOOD (BEAKER) (test itrm=8714) 7.42 [id number] 07:07:00 Test Item Value Reference Range Comments PHOSPHORUS (BEAKER) (test efpl=938) 3.5 mg/dL 2.3-4.7 [id number] 07:07:00 Test Item Value Reference Range Comments MAGNESIUM (BEAKER) (test ymza=348) 1.8 mg/dL 1.6-2.6 COMPREHENSIVE METABOLIC [id number] 07:07:00 Test Item Value Reference Range Comments TOTAL PROTEIN (BEAKER) 6.7 gm/dL 6.0-8.3 (test orbx=068) ALBUMIN (BEAKER) (test 3.1 g/dL 3.5-5.0 hgba=7141) ALKALINE PHOSPHATASE 53 U/L 40-150 (BEAKER) (test uylu=989) BILIRUBIN TOTAL (BEAKER) 0.6 mg/dL 0.2-1.2 (test whra=538) SODIUM (BEAKER) (test 139 meq/L 136-145 anmn=117) POTASSIUM (BEAKER) (test 4.0 meq/L 3.5-5.1 dnsw=945) CHLORIDE (BEAKER) (test 103 meq/L 98-107 hsha=292) CO2 (BEAKER) (test 27 meq/L 22-29 xurg=900) BLOOD UREA NITROGEN 16 mg/dL 7-21 (BEAKER) (test qpif=573) CREATININE (BEAKER) (test 1.34 mg/dL 0.57-1.25 bgsj=486) GLUCOSE RANDOM (BEAKER) 116 mg/dL 70-105 (test hczi=345) CALCIUM (BEAKER) (test 9.2 mg/dL 8.4-10.2 zhhs=707) AST (SGOT) (BEAKER) (test 15 U/L 5-34 puzl=318) ALT (SGPT) (BEAKER) (test 11 U/L 6-55 odga=914) EGFR (BEAKER) (test 47 mL/min/1.73 sq m ESTIMATED GFR IS NOT eltq=9867) ACCURATE CREATININE CLEARANCE IN PREDICTING GLOMERULAR FILTRATION RATE. ESTIMATED GFR IS NOT APPLICABLE FOR DIALYSIS PATIENTS. CBC W/PLT COUNT & AUTO [id number] 06:52:00 Test Item Value Reference Range Comments WHITE BLOOD CELL COUNT (BEAKER) (test rlys=288) 12.8 K/ L 3.5-10.5 RED BLOOD CELL COUNT (BEAKER) (test dqzr=686) 2.43 M/ L 3.93-5.22 HEMOGLOBIN (BEAKER) (test mjpk=916) 7.2 GM/DL 11.2-15.7 HEMATOCRIT (BEAKER) (test fehq=655) 23.8 % 34.1-44.9 MEAN CORPUSCULAR VOLUME (BEAKER) (test fzwc=606) 97.9 fL 79.4-94.8 MEAN CORPUSCULAR HEMOGLOBIN (BEAKER) (test 29.6 pg 25.6-32.2 ijgk=474) MEAN CORPUSCULAR HEMOGLOBIN CONC (BEAKER) (test 30.3 GM/DL 32.2-35.5 dkld=787) RED CELL DISTRIBUTION WIDTH (BEAKER) (test 15.0 % 11.7-14.4 rvgf=703) PLATELET COUNT (BEAKER) (test jjqf=593) 456 K/CU MM 150-450 MEAN PLATELET VOLUME (BEAKER) (test qwaw=278) 10.3 fL 9.4-12.3 NUCLEATED RED BLOOD CELLS (BEAKER) (test 0 /100 WBC 0-0 hmyd=315) NEUTROPHILS RELATIVE PERCENT (BEAKER) (test 82 % yicc=068) LYMPHOCYTES RELATIVE PERCENT (BEAKER) (test 9 % jquk=366) MONOCYTES RELATIVE PERCENT (BEAKER) (test 6 % krsk=746) EOSINOPHILS RELATIVE PERCENT (BEAKER) (test 2 % ikpo=189) BASOPHILS RELATIVE PERCENT (BEAKER) (test 0 % wqyc=820) NEUTROPHILS ABSOLUTE COUNT (BEAKER) (test 10.52 K/ L 1.56-6.13 knvi=494) LYMPHOCYTES ABSOLUTE COUNT (BEAKER) (test 1.19 K/ L 1.18-3.74 knbk=020) MONOCYTES ABSOLUTE COUNT (BEAKER) (test 0.73 K/ L 0.24-0.36 rato=801) EOSINOPHILS ABSOLUTE COUNT (BEAKER) (test 0.22 K/ L 0.04-0.36 ugjf=503) BASOPHILS ABSOLUTE COUNT (BEAKER) (test 0.04 K/ L 0.01-0.08 uiou=569) IMMATURE GRANULOCYTES-RELATIVE PERCENT (BEAKER) 1 % 0-1 (test agkb=5293) POCT-GLUCOSE [id number] 21:47:00 Test Item Value Reference Range Comments POC-GLUCOSE METER (BEAKER) 106 mg/dL 70-110 TESTED AT [address] (test suaj=8832) [place] [address] POCT-GLUCOSE [id number] 18:50:00 Test Item Value Reference Range Comments POC-GLUCOSE METER (BEAKER) 175 mg/dL 70-110 TESTED AT [address] (test ubim=2489) [place] [address] [id number] 15:18:00 Test Item Value Reference Range Comments POTASSIUM (BEAKER) (test ifvs=094) 3.7 meq/L 3.5-5.1 [id number] 15:18:00 Test Item Value Reference Range Comments MAGNESIUM (BEAKER) (test smve=922) 2.2 mg/dL 1.6-2.6 POCT-GLUCOSE [id number] 11:48:00 Test Item Value Reference Range Comments POC-GLUCOSE METER (BEAKER) 131 mg/dL 70-110 TESTED AT [address] (test dduq=8058) [place] [address] BLOOD GAS, [id number] 11:46:00 Test Item Value Reference Range Comments PH ARTERIAL (BEAKER) (test ujvw=916) 7.43 7.35-7.45 PCO2 ARTERIAL (BEAKER) (test czjr=327) 46 mmHg 35-45 PO2 ARTERIAL (BEAKER) (test cwgc=872) 83 mmHg 80-90 O2 SATURATION ARTERIAL (BEAKER) (test ahsv=301) 96.5 % 96.0-97.0 HCO3 ARTERIAL (BEAKER) (test kucy=539) 30 mmol/L 21-29 BASE EXCESS ARTERIAL (BEAKER) (test xryk=230) 4.8 mmol/L -2.0-3.0 PATIENT TEMPERATURE (BEAKER) (test meha=8670) 36.9 C FIO2 (BEAKER) (test nnwl=8539) 36.0 % POCT-GLUCOSE [id number] 08:29:00 Test Item Value Reference Range Comments POC-GLUCOSE METER (BEAKER) 129 mg/dL 70-110 TESTED AT [facility] [address] [facility] (test rfjj=6894) [place] [address] CALCIUM, [id number] 04:18:00 Test Item Value Reference Range Comments CALCIUM IONIZED (BEAKER) (test tyqe=056) 1.11 mmol/L 1.12-1.27 PH, BLOOD (BEAKER) (test hmmb=8564) 7.40 B-TYPE NATRIURETIC FACTOR (BNP)2017-07-29 04:06:00 Test Item Value Reference Range Comments B-TYPE NATRIURETIC PEPTIDE (BEAKER) (test 982 pg/mL 0-100 uspd=365) [id number] 03:59:00 Test Item Value Reference Range Comments PHOSPHORUS (BEAKER) (test labf=768) 3.6 mg/dL 2.3-4.7 [id number] 03:59:00 Test Item Value Reference Range Comments MAGNESIUM (BEAKER) (test zoqx=089) 1.9 mg/dL 1.6-2.6 BASIC METABOLIC [id number] 03:59:00 Test Item Value Reference Range Comments SODIUM (BEAKER) (test 141 meq/L 136-145 uztl=950) POTASSIUM (BEAKER) (test 3.1 meq/L 3.5-5.1 phny=673) CHLORIDE (BEAKER) (test 103 meq/L 98-107 knii=187) CO2 (BEAKER) (test 26 meq/L 22-29 vods=885) BLOOD UREA NITROGEN 17 mg/dL 7-21 (BEAKER) (test xmim=437) CREATININE (BEAKER) (test 1.43 mg/dL 0.57-1.25 vgik=364) GLUCOSE RANDOM (BEAKER) 110 mg/dL 70-105 (test eldh=612) CALCIUM (BEAKER) (test 9.0 mg/dL 8.4-10.2 wfff=733) EGFR (BEAKER) (test 44 mL/min/1.73 sq m ESTIMATED GFR IS NOT mffx=1967) ACCURATE CREATININE CLEARANCE IN PREDICTING GLOMERULAR FILTRATION RATE. ESTIMATED GFR IS NOT APPLICABLE FOR DIALYSIS PATIENTS. CBC (HEMOGRAM ONLY)2017-07-29 03:51:00 Test Item Value Reference Range Comments WHITE BLOOD CELL COUNT (BEAKER) (test sdks=474) 12.2 K/ L 3.5-10.5 RED BLOOD CELL COUNT (BEAKER) (test uvpz=962) 2.48 M/ L 3.93-5.22 HEMOGLOBIN (BEAKER) (test moqj=927) 7.4 GM/DL 11.2-15.7 HEMATOCRIT (BEAKER) (test jtti=698) 24.2 % 34.1-44.9 MEAN CORPUSCULAR VOLUME (BEAKER) (test cnfp=697) 97.6 fL 79.4-94.8 MEAN CORPUSCULAR HEMOGLOBIN (BEAKER) (test 29.8 pg 25.6-32.2 bgcc=920) MEAN CORPUSCULAR HEMOGLOBIN CONC (BEAKER) (test 30.6 GM/DL 32.2-35.5 hrjn=377) RED CELL DISTRIBUTION WIDTH (BEAKER) (test 15.1 % 11.7-14.4 qrqi=685) PLATELET COUNT (BEAKER) (test ghem=603) 410 K/CU MM 150-450 MEAN PLATELET VOLUME (BEAKER) (test ibze=493) 10.2 fL 9.4-12.3 NUCLEATED RED BLOOD CELLS (BEAKER) (test 0 /100 WBC 0-0 nedz=233) POCT-GLUCOSE [id number] 23:55:00 Test Item Value Reference Range Comments POC-GLUCOSE METER (BEAKER) 164 mg/dL 70-110 TESTED AT [facility] [address] [facility] (test pybl=4016) [facility] [address] HERPES VIRUS ANTIBODY, [id number] 11:02:00 Test Item Value Reference Range Comments HERPES VIRUS IGM (BEAKER) (test xump=4887) Negative HSV IgM 1=NEGATIVEHSV IgM 2=NEGATIVETOXOPLASMA GONDII ANTIBODY, [id number] 11 :02:00 Test Item Value Reference Range Comments TOXOPLASMA IGM ANTIBODY (BEAKER) (test dzxp=112) Negative RAD, CHEST, 1 VIEW, NON [id number] 10:48:00Reason for exam:->acute respiratory insufficiencyShould this be [...] [facility] Reading Room [id number] 05:13:00 Test Item Value Reference Range Comments PHOSPHORUS (BEAKER) (test oeyt=455) 3.3 mg/dL 2.3-4.7 [id number] 05:13:00 Test Item Value Reference Range Comments MAGNESIUM (BEAKER) (test fcyh=136) 1.9 mg/dL 1.6-2.6 HEPATIC FUNCTION [id number] 05:13:00 Test Item Value Reference Range Comments TOTAL PROTEIN (BEAKER) (test gxwd=708) 7.5 gm/dL 6.0-8.3 ALBUMIN (BEAKER) (test rbwr=2965) 3.6 g/dL 3.5-5.0 BILIRUBIN TOTAL (BEAKER) (test rkxk=360) 0.9 mg/dL 0.2-1.2 BILIRUBIN DIRECT (BEAKER) (test ztxl=202) 0.4 mg/dL 0.1-0.5 ALKALINE PHOSPHATASE (BEAKER) (test cmfr=343) 66 U/L 40-150 AST (SGOT) (BEAKER) (test mndl=314) 21 U/L 5-34 ALT (SGPT) (BEAKER) (test gnuk=021) 17 U/L 6-55 COMPREHENSIVE METABOLIC [id number] 05:13:00 Test Item Value Reference Range Comments TOTAL PROTEIN (BEAKER) 7.5 gm/dL 6.0-8.3 (test imnp=274) ALBUMIN (BEAKER) (test 3.6 g/dL 3.5-5.0 foeb=6683) ALKALINE PHOSPHATASE 66 U/L 40-150 (BEAKER) (test ndxt=670) BILIRUBIN TOTAL (BEAKER) 0.9 mg/dL 0.2-1.2 (test akks=645) SODIUM (BEAKER) (test 143 meq/L 136-145 hufg=712) POTASSIUM (BEAKER) (test 3.5 meq/L 3.5-5.1 ozlr=272) CHLORIDE (BEAKER) (test 105 meq/L 98-107 wkec=545) CO2 (BEAKER) (test 25 meq/L 22-29 bsii=246) BLOOD UREA NITROGEN 18 mg/dL 7-21 (BEAKER) (test njfu=647) CREATININE (BEAKER) (test 1.43 mg/dL 0.57-1.25 zozv=676) GLUCOSE RANDOM (BEAKER) 130 mg/dL 70-105 (test crrh=522) CALCIUM (BEAKER) (test 9.6 mg/dL 8.4-10.2 nlgh=357) AST (SGOT) (BEAKER) (test 21 U/L 5-34 jmhg=159) ALT (SGPT) (BEAKER) (test 17 U/L 6-55 hyoy=586) EGFR (BEAKER) (test 44 mL/min/1.73 sq m ESTIMATED GFR IS NOT iksh=9557) ACCURATE CREATININE CLEARANCE IN PREDICTING GLOMERULAR FILTRATION RATE. ESTIMATED GFR IS NOT APPLICABLE FOR DIALYSIS PATIENTS. LACTATE DEHYDROGENASE (LDH)2017-07-28 05:13:00 Test Item Value Reference Range Comments LACTATE DEHYDROGENASE (BEAKER) (test oafk=635) 639 U/L 125-220 CBC W/PLT COUNT & AUTO [id number] 04:57:00 Test Item Value Reference Range Comments WHITE BLOOD CELL COUNT (BEAKER) (test etze=764) 13.6 K/ L 3.5-10.5 RED BLOOD CELL COUNT (BEAKER) (test ncgs=080) 2.86 M/ L 3.93-5.22 HEMOGLOBIN (BEAKER) (test sabj=976) 8.5 GM/DL 11.2-15.7 HEMATOCRIT (BEAKER) (test ooqy=306) 28.9 % 34.1-44.9 MEAN CORPUSCULAR VOLUME (BEAKER) (test nflc=206) 101.0 fL 79.4-94.8 MEAN CORPUSCULAR HEMOGLOBIN (BEAKER) (test 29.7 pg 25.6-32.2 hmxq=886) MEAN CORPUSCULAR HEMOGLOBIN CONC (BEAKER) (test 29.4 GM/DL 32.2-35.5 jnaw=023) RED CELL DISTRIBUTION WIDTH (BEAKER) (test 15.2 % 11.7-14.4 yzfa=805) PLATELET COUNT (BEAKER) (test mqic=575) 375 K/CU MM 150-450 MEAN PLATELET VOLUME (BEAKER) (test obpo=925) 10.7 fL 9.4-12.3 NUCLEATED RED BLOOD CELLS (BEAKER) (test 0 /100 WBC 0-0 vceg=060) NEUTROPHILS RELATIVE PERCENT (BEAKER) (test 82 % emvk=226) LYMPHOCYTES RELATIVE PERCENT (BEAKER) (test 9 % mumm=684) MONOCYTES RELATIVE PERCENT (BEAKER) (test 6 % mlrt=796) EOSINOPHILS RELATIVE PERCENT (BEAKER) (test 2 % svge=724) BASOPHILS RELATIVE PERCENT (BEAKER) (test 1 % hjgs=801) NEUTROPHILS ABSOLUTE COUNT (BEAKER) (test 11.11 K/ L 1.56-6.13 iqua=970) LYMPHOCYTES ABSOLUTE COUNT (BEAKER) (test 1.17 K/ L 1.18-3.74 dmsp=038) MONOCYTES ABSOLUTE COUNT (BEAKER) (test 0.83 K/ L 0.24-0.36 cmov=484) EOSINOPHILS ABSOLUTE COUNT (BEAKER) (test 0.25 K/ L 0.04-0.36 jaux=393) BASOPHILS ABSOLUTE COUNT (BEAKER) (test 0.07 K/ L 0.01-0.08 nrgd=648) IMMATURE GRANULOCYTES-RELATIVE PERCENT (BEAKER) 1 % 0-1 (test toti=9039) OCCULT BLOOD, [id number] 01:02:00 Test Item Value Reference Range Comments FECAL OCCULT BLOOD (BEAKER) (test dqlg=144) Negative Negative POCT-GLUCOSE [id number] 00:46:00 Test Item Value Reference Range Comments POC-GLUCOSE METER (BEAKER) 149 mg/dL 70-110 TESTED AT [address] (test sfqo=5862) [place] [id number] C. DIFFICILE GDH [id number] 19:51:00 Test Item Value Reference Range Comments CDT TOXIN (test Negative Negative klll=[id number]) CDT GDH ANTIGEN (test Negative Negative No indication of Clostridium form=[id number]) difficile infection and no colonization. Discontinue enteric isolation and therapy. Testing performed by [employer] Rapid Cassette Assay. For GDH, published sensitivity of the assay is 98.7% compared to cytotoxicity testing. For Toxin AB, published sensitivity is 87.8% and specificity 99.4% compared to cytotoxicity testing.Verification of kit performance was done by the [facility] Microbiology Lab prior to clinical use.POCT-GLUCOSE [id number] 18:11:00 Test Item Value Reference Range Comments POC-GLUCOSE METER (BEAKER) 201 mg/dL 70-110 TESTED AT [address] (test mplw=6985) [place] [id number] BLOOD GAS, [id number] 17:03:00 Test Item Value Reference Range Comments PH ARTERIAL (BEAKER) (test erhp=324) 7.41 7.35-7.45 PCO2 ARTERIAL (BEAKER) (test ayjx=096) 45 mmHg 35-45 PO2 ARTERIAL (BEAKER) (test kdld=775) 94 mmHg 80-90 O2 SATURATION ARTERIAL (BEAKER) (test wpbx=710) 97.3 % 96.0-97.0 HCO3 ARTERIAL (BEAKER) (test efjq=621) 28 mmol/L 21-29 BASE EXCESS ARTERIAL (BEAKER) (test vvci=025) 2.3 mmol/L -2.0-3.0 PATIENT TEMPERATURE (BEAKER) (test dakr=7332) 36.6 C FIO2 (BEAKER) (test zzfx=2299) 40.0 % POCT-GLUCOSE [id number] 12:44:00 Test Item Value Reference Range Comments POC-GLUCOSE METER (BEAKER) 117 mg/dL 70-110 TESTED AT [address] (test xmxx=0376) [place] [address] B-TYPE NATRIURETIC FACTOR (BNP)2017-07-27 11:13:00 Test Item Value Reference Range Comments B-TYPE NATRIURETIC PEPTIDE (BEAKER) (test 1198 pg/mL 0-100 gcmh=873) LACTIC ACID, VENOUS, WHOLE [id number] 11:12:00 Test Item Value Reference Range Comments LACTATE BLOOD VENOUS (2) (BEAKER) (test 0.7 mmol/L 0.5-2.2 cbyr=5549) Effective 08/06/2015: Units/Reference Range ChangeNew: 0.5-2.2 mmol/L Previous: 5 -20 mg/dLOXYGEN SATURATION, [id number] 10:28:00 Test Item Value Reference Range Comments O2 SATURATION (MEASURED) (BEAKER) (test muse=7852) 59.6 % RAD, CHEST, 1 VIEW, NON [id number] 08:23:00Reason for exam:->acute respiratory insufficiencyShould this be [...] Verified Date/Time: 07/27/2017 08:23 :08 Reading Location: [facility] Radiology Reading Room POCT-GLUCOSE [id number] 07:53:00 Test Item Value Reference Range Comments POC-GLUCOSE METER (BEAKER) 124 mg/dL 70-110 TESTED AT [address] (test fljy=2065) [facility] [address] BASIC METABOLIC [id number] 06:33:00 Test Item Value Reference Range Comments SODIUM (BEAKER) (test 144 meq/L 136-145 rkrl=508) POTASSIUM (BEAKER) (test 3.8 meq/L 3.5-5.1 mcqh=367) CHLORIDE (BEAKER) (test 109 meq/L 98-107 tjxn=626) CO2 (BEAKER) (test 24 meq/L 22-29 whcx=913) BLOOD UREA NITROGEN 20 mg/dL 7-21 (BEAKER) (test lqde=942) CREATININE (BEAKER) (test 1.40 mg/dL 0.57-1.25 znfk=714) GLUCOSE RANDOM (BEAKER) 111 mg/dL 70-105 (test iaap=807) CALCIUM (BEAKER) (test 8.8 mg/dL 8.4-10.2 fibp=913) EGFR (BEAKER) (test 45 mL/min/1.73 sq m ESTIMATED GFR IS NOT srux=2080) ACCURATE CREATININE CLEARANCE IN PREDICTING GLOMERULAR FILTRATION RATE. ESTIMATED GFR IS NOT APPLICABLE FOR DIALYSIS PATIENTS. [id number] 06:24:00 Test Item Value Reference Range Comments PHOSPHORUS (BEAKER) (test mexe=304) 3.3 mg/dL 2.3-4.7 BASIC METABOLIC [id number] 06:24:00 Test Item Value Reference Range Comments SODIUM (BEAKER) (test 145 meq/L 136-145 lfoh=624) POTASSIUM (BEAKER) (test 3.8 meq/L 3.5-5.1 ffvi=254) CHLORIDE (BEAKER) (test 110 meq/L 98-107 uzha=616) CO2 (BEAKER) (test 24 meq/L 22-29 bhvu=229) BLOOD UREA NITROGEN 21 mg/dL 7-21 (BEAKER) (test vvgk=315) CREATININE (BEAKER) (test 1.39 mg/dL 0.57-1.25 tffp=433) GLUCOSE RANDOM (BEAKER) 112 mg/dL 70-105 (test rzge=342) CALCIUM (BEAKER) (test 8.9 mg/dL 8.4-10.2 ygpb=732) EGFR (BEAKER) (test 45 mL/min/1.73 sq m ESTIMATED GFR IS NOT vfmj=9854) ACCURATE CREATININE CLEARANCE IN PREDICTING GLOMERULAR FILTRATION RATE. ESTIMATED GFR IS NOT APPLICABLE FOR DIALYSIS PATIENTS. [id number] 03:27:00 Test Item Value Reference Range Comments PROCALCITONIN (BEAKER) (test zfgr=0911) 0.28 ng/mL <0.05 SEPSIS RISK (ng/mL)Low: 0.05-0.50Intermediate: 0.51-2.00High: & gt;=2.01LACTATE DEHYDROGENASE (LDH)2017-07-27 03:07:00 Test Item Value Reference Range Comments LACTATE DEHYDROGENASE (BEAKER) (test xhhn=725) 615 U/L 125-220 HEPATIC FUNCTION [id number] 03:07:00 Test Item Value Reference Range Comments TOTAL PROTEIN (BEAKER) (test qvru=407) 6.8 gm/dL 6.0-8.3 ALBUMIN (BEAKER) (test kkjm=4453) 3.2 g/dL 3.5-5.0 BILIRUBIN TOTAL (BEAKER) (test vzkf=697) 0.9 mg/dL 0.2-1.2 BILIRUBIN DIRECT (BEAKER) (test hwpi=910) 0.5 mg/dL 0.1-0.5 ALKALINE PHOSPHATASE (BEAKER) (test nhom=659) 58 U/L 40-150 AST (SGOT) (BEAKER) (test zjnz=212) 21 U/L 5-34 ALT (SGPT) (BEAKER) (test dwrl=947) 15 U/L 6-55 CALCIUM, [id number] 02:57:00 Test Item Value Reference Range Comments CALCIUM IONIZED (BEAKER) (test szye=387) 1.14 mmol/L 1.12-1.27 PH, BLOOD (BEAKER) (test aqex=5124) 7.42 CBC W/PLT COUNT & AUTO [id number] 02:56:00 Test Item Value Reference Range Comments WHITE BLOOD CELL COUNT (BEAKER) (test fitu=813) 12.4 K/ L 3.5-10.5 RED BLOOD CELL COUNT (BEAKER) (test gmjx=943) 2.50 M/ L 3.93-5.22 HEMOGLOBIN (BEAKER) (test wcha=603) 7.4 GM/DL 11.2-15.7 HEMATOCRIT (BEAKER) (test fxdc=118) 24.7 % 34.1-44.9 MEAN CORPUSCULAR VOLUME (BEAKER) (test zhkt=268) 98.8 fL 79.4-94.8 MEAN CORPUSCULAR HEMOGLOBIN (BEAKER) (test 29.6 pg 25.6-32.2 aeyo=827) MEAN CORPUSCULAR HEMOGLOBIN CONC (BEAKER) (test 30.0 GM/DL 32.2-35.5 znpl=609) RED CELL DISTRIBUTION WIDTH (BEAKER) (test 15.1 % 11.7-14.4 ilue=353) PLATELET COUNT (BEAKER) (test jdos=631) 233 K/CU MM 150-450 MEAN PLATELET VOLUME (BEAKER) (test witj=936) 10.5 fL 9.4-12.3 NUCLEATED RED BLOOD CELLS (BEAKER) (test 0 /100 WBC 0-0 tcox=938) NEUTROPHILS RELATIVE PERCENT (BEAKER) (test 80 % rlsm=019) LYMPHOCYTES RELATIVE PERCENT (BEAKER) (test 9 % tevp=995) MONOCYTES RELATIVE PERCENT (BEAKER) (test 7 % mpgu=777) EOSINOPHILS RELATIVE PERCENT (BEAKER) (test 2 % ehfd=690) BASOPHILS RELATIVE PERCENT (BEAKER) (test 0 % cwsi=142) NEUTROPHILS ABSOLUTE COUNT (BEAKER) (test 9.94 K/ L 1.56-6.13 sxql=353) LYMPHOCYTES ABSOLUTE COUNT (BEAKER) (test 1.15 K/ L 1.18-3.74 ddqh=031) MONOCYTES ABSOLUTE COUNT (BEAKER) (test 0.90 K/ L 0.24-0.36 skaw=780) EOSINOPHILS ABSOLUTE COUNT (BEAKER) (test 0.24 K/ L 0.04-0.36 llrh=619) BASOPHILS ABSOLUTE COUNT (BEAKER) (test 0.05 K/ L 0.01-0.08 zmix=465) IMMATURE GRANULOCYTES-RELATIVE PERCENT (BEAKER) 1 % 0-1 (test llga=4677) [id number] 01:29:00 Test Item Value Reference Range Comments PHOSPHORUS (BEAKER) (test oius=972) 3.5 mg/dL 2.3-4.7 BASIC METABOLIC [id number] 01:29:00 Test Item Value Reference Range Comments SODIUM (BEAKER) (test 145 meq/L 136-145 pekp=918) POTASSIUM (BEAKER) (test 3.4 meq/L 3.5-5.1 pvsq=746) CHLORIDE (BEAKER) (test 107 meq/L 98-107 mcll=498) CO2 (BEAKER) (test 26 meq/L 22-29 dubj=332) BLOOD UREA NITROGEN 21 mg/dL 7-21 (BEAKER) (test wldq=159) CREATININE (BEAKER) (test 1.47 mg/dL 0.57-1.25 rlbk=518) GLUCOSE RANDOM (BEAKER) 138 mg/dL 70-105 (test tcex=488) CALCIUM (BEAKER) (test 9.1 mg/dL 8.4-10.2 migj=629) EGFR (BEAKER) (test 43 mL/min/1.73 sq m ESTIMATED GFR IS NOT zvxc=3979) ACCURATE CREATININE CLEARANCE IN PREDICTING GLOMERULAR FILTRATION RATE. ESTIMATED GFR IS NOT APPLICABLE FOR DIALYSIS PATIENTS. POCT-GLUCOSE [id number] 22:08:00 Test Item Value Reference Range Comments POC-GLUCOSE METER (BEAKER) 166 mg/dL 70-110 TESTED AT [address] (test ftem=2979) [facility] [address] [id number] 21:22:00 Test Item Value Reference Range Comments MAGNESIUM (BEAKER) (test ejsk=590) 2.2 mg/dL 1.6-2.6 [id number] 19:23:00 Test Item Value Reference Range Comments PHOSPHORUS (BEAKER) (test niei=888) 2.9 mg/dL 2.3-4.7 BASIC METABOLIC [id number] 19:23:00 Test Item Value Reference Range Comments SODIUM (BEAKER) (test 145 meq/L 136-145 cxdm=778) POTASSIUM (BEAKER) (test 3.6 meq/L 3.5-5.1 wszg=884) CHLORIDE (BEAKER) (test 109 meq/L 98-107 zaeo=718) CO2 (BEAKER) (test 24 meq/L 22-29 xrrt=192) BLOOD UREA NITROGEN 22 mg/dL 7-21 (BEAKER) (test xmfy=282) CREATININE (BEAKER) (test 1.48 mg/dL 0.57-1.25 iirf=983) GLUCOSE RANDOM (BEAKER) 150 mg/dL 70-105 (test pksm=237) CALCIUM (BEAKER) (test 9.0 mg/dL 8.4-10.2 mljp=252) EGFR (BEAKER) (test 42 mL/min/1.73 sq m ESTIMATED GFR IS NOT cqoa=0791) ACCURATE CREATININE CLEARANCE IN PREDICTING GLOMERULAR FILTRATION RATE. ESTIMATED GFR IS NOT APPLICABLE FOR DIALYSIS PATIENTS. POCT-GLUCOSE [id number] 18:13:00 Test Item Value Reference Range Comments POC-GLUCOSE METER (BEAKER) 188 mg/dL 70-110 TESTED AT [place] [id number] [facility] (test dnoh=6454) [facility] [address] [id number] 13:12:00 Test Item Value Reference Range Comments PHOSPHORUS (BEAKER) (test vizq=625) 2.7 mg/dL 2.3-4.7 BASIC METABOLIC [id number] 13:12:00 Test Item Value Reference Range Comments SODIUM (BEAKER) (test 144 meq/L 136-145 gqve=003) POTASSIUM (BEAKER) (test 3.5 meq/L 3.5-5.1 ofor=597) CHLORIDE (BEAKER) (test 108 meq/L 98-107 bfsq=465) CO2 (BEAKER) (test 26 meq/L 22-29 wozx=114) BLOOD UREA NITROGEN 23 mg/dL 7-21 (BEAKER) (test qznv=783) CREATININE (BEAKER) (test 1.45 mg/dL 0.57-1.25 ccve=179) GLUCOSE RANDOM (BEAKER) 183 mg/dL 70-105 (test rhoo=035) CALCIUM (BEAKER) (test 8.5 mg/dL 8.4-10.2 zclb=480) EGFR (BEAKER) (test 43 mL/min/1.73 sq m ESTIMATED GFR IS NOT xvty=0187) ACCURATE CREATININE CLEARANCE IN PREDICTING GLOMERULAR FILTRATION RATE. ESTIMATED GFR IS NOT APPLICABLE FOR DIALYSIS PATIENTS. POCT-GLUCOSE [id number] 12:07:00 Test Item Value Reference Range Comments POC-GLUCOSE METER (BEAKER) 203 mg/dL 70-110 TESTED AT [facility] [address] [facility] (test bryd=5786) [facility] [address] [id number] 09:50:00 Test Item Value Reference Range Comments MAGNESIUM (BEAKER) (test qucv=745) 2.6 mg/dL 1.6-2.6 RAD, CHEST, 1 VIEW, NON [id number] 08:06:00Reason for exam:->acute respiratory insufficiencyShould this be [...] Location: [facility] POCT-GLUCOSE [id number] 07:58:00 Test Item Value Reference Range Comments POC-GLUCOSE METER (BEAKER) 176 mg/dL 70-110 TESTED AT [facility] [address] [facility] (test yuiq=1104) [facility] [address] OXYGEN SATURATION, [id number] 05:23:00 Test Item Value Reference Range Comments O2 SATURATION (MEASURED) (BEAKER) (test xwqv=1429) 64.5 % calibrationBLOOD GAS, [id number] 04:43:00 Test Item Value Reference Range Comments PH ARTERIAL (BEAKER) (test ngab=969) 7.44 7.35-7.45 PCO2 ARTERIAL (BEAKER) (test aead=572) 44 mmHg 35-45 PO2 ARTERIAL (BEAKER) (test ptsg=043) 127 mmHg 80-90 O2 SATURATION ARTERIAL (BEAKER) (test whhi=725) 98.6 % 96.0-97.0 HCO3 ARTERIAL (BEAKER) (test yjtc=271) 29 mmol/L 21-29 BASE EXCESS ARTERIAL (BEAKER) (test ugoc=391) 4.6 mmol/L -2.0-3.0 PATIENT TEMPERATURE (BEAKER) (test zppm=0712) 37.3 C FIO2 (BEAKER) (test tyje=3723) 100.0 % [id number] 04:31:00 Test Item Value Reference Range Comments PHOSPHORUS (BEAKER) (test jwlc=752) 3.4 mg/dL 2.3-4.7 [id number] 04:31:00 Test Item Value Reference Range Comments MAGNESIUM (BEAKER) (test rzwo=489) 2.2 mg/dL 1.6-2.6 BASIC METABOLIC [id number] 04:31:00 Test Item Value Reference Range Comments SODIUM (BEAKER) (test 146 meq/L 136-145 toox=396) POTASSIUM (BEAKER) (test 3.7 meq/L 3.5-5.1 wmwt=599) CHLORIDE (BEAKER) (test 108 meq/L 98-107 wqog=607) CO2 (BEAKER) (test 28 meq/L 22-29 zttu=846) BLOOD UREA NITROGEN 23 mg/dL 7-21 (BEAKER) (test xwga=260) CREATININE (BEAKER) (test 1.51 mg/dL 0.57-1.25 novd=265) GLUCOSE RANDOM (BEAKER) 151 mg/dL 70-105 (test okto=805) CALCIUM (BEAKER) (test 9.4 mg/dL 8.4-10.2 kwbw=052) EGFR (BEAKER) (test 41 mL/min/1.73 sq m ESTIMATED GFR IS NOT qdus=9031) ACCURATE CREATININE CLEARANCE IN PREDICTING GLOMERULAR FILTRATION RATE. ESTIMATED GFR IS NOT APPLICABLE FOR DIALYSIS PATIENTS. HEPATIC FUNCTION [id number] 04:31:00 Test Item Value Reference Range Comments TOTAL PROTEIN (BEAKER) (test nxco=866) 6.6 gm/dL 6.0-8.3 ALBUMIN (BEAKER) (test qiqg=2343) 3.2 g/dL 3.5-5.0 BILIRUBIN TOTAL (BEAKER) (test jhuv=146) 1.0 mg/dL 0.2-1.2 BILIRUBIN DIRECT (BEAKER) (test jadv=775) 0.5 mg/dL 0.1-0.5 ALKALINE PHOSPHATASE (BEAKER) (test hpit=952) 60 U/L 40-150 AST (SGOT) (BEAKER) (test zisw=045) 25 U/L 5-34 ALT (SGPT) (BEAKER) (test wuju=487) 18 U/L 6-55 COMPREHENSIVE METABOLIC [id number] 04:31:00 Test Item Value Reference Range Comments TOTAL PROTEIN (BEAKER) 6.6 gm/dL 6.0-8.3 (test tdea=383) ALBUMIN (BEAKER) (test 3.2 g/dL 3.5-5.0 wngq=3077) ALKALINE PHOSPHATASE 60 U/L 40-150 (BEAKER) (test gndk=406) BILIRUBIN TOTAL (BEAKER) 1.0 mg/dL 0.2-1.2 (test hswo=006) SODIUM (BEAKER) (test 146 meq/L 136-145 rlas=668) POTASSIUM (BEAKER) (test 3.7 meq/L 3.5-5.1 gshw=487) CHLORIDE (BEAKER) (test 108 meq/L 98-107 tkve=784) CO2 (BEAKER) (test 28 meq/L 22-29 kanu=618) BLOOD UREA NITROGEN 23 mg/dL 7-21 (BEAKER) (test fmfz=487) CREATININE (BEAKER) (test 1.51 mg/dL 0.57-1.25 sohb=320) GLUCOSE RANDOM (BEAKER) 151 mg/dL 70-105 (test xrbz=383) CALCIUM (BEAKER) (test 9.4 mg/dL 8.4-10.2 uawy=609) AST (SGOT) (BEAKER) (test 25 U/L 5-34 jgcq=761) ALT (SGPT) (BEAKER) (test 18 U/L 6-55 hkpa=130) EGFR (BEAKER) (test 41 mL/min/1.73 sq m ESTIMATED GFR IS NOT vjpd=4539) ACCURATE CREATININE CLEARANCE IN PREDICTING GLOMERULAR FILTRATION RATE. ESTIMATED GFR IS NOT APPLICABLE FOR DIALYSIS PATIENTS. LACTATE DEHYDROGENASE (LDH)2017-07-26 04:31:00 Test Item Value Reference Range Comments LACTATE DEHYDROGENASE (BEAKER) (test hfrv=838) 661 U/L 125-220 CALCIUM, [id number] 04:23:00 Test Item Value Reference Range Comments CALCIUM IONIZED (BEAKER) (test vjxw=228) 1.15 mmol/L 1.12-1.27 PH, BLOOD (BEAKER) (test gkeu=7417) 7.47 CBC W/PLT COUNT & AUTO [id number] 04:20:00 Test Item Value Reference Range Comments WHITE BLOOD CELL COUNT (BEAKER) (test mcbe=975) 13.0 K/ L 3.5-10.5 RED BLOOD CELL COUNT (BEAKER) (test dtce=593) 2.56 M/ L 3.93-5.22 HEMOGLOBIN (BEAKER) (test kbaw=764) 7.6 GM/DL 11.2-15.7 HEMATOCRIT (BEAKER) (test qhvd=837) 25.4 % 34.1-44.9 MEAN CORPUSCULAR VOLUME (BEAKER) (test zaed=920) 99.2 fL 79.4-94.8 MEAN CORPUSCULAR HEMOGLOBIN (BEAKER) (test 29.7 pg 25.6-32.2 jora=580) MEAN CORPUSCULAR HEMOGLOBIN CONC (BEAKER) (test 29.9 GM/DL 32.2-35.5 jfls=727) RED CELL DISTRIBUTION WIDTH (BEAKER) (test 15.0 % 11.7-14.4 jtxs=629) PLATELET COUNT (BEAKER) (test sord=952) 161 K/CU MM 150-450 MEAN PLATELET VOLUME (BEAKER) (test jtth=556) 11.0 fL 9.4-12.3 NUCLEATED RED BLOOD CELLS (BEAKER) (test 0 /100 WBC 0-0 dygw=611) NEUTROPHILS RELATIVE PERCENT (BEAKER) (test 79 % opfc=364) LYMPHOCYTES RELATIVE PERCENT (BEAKER) (test 10 % cxoc=437) MONOCYTES RELATIVE PERCENT (BEAKER) (test 7 % udbe=844) EOSINOPHILS RELATIVE PERCENT (BEAKER) (test 2 % anyo=335) BASOPHILS RELATIVE PERCENT (BEAKER) (test 1 % kprk=466) NEUTROPHILS ABSOLUTE COUNT (BEAKER) (test 10.33 K/ L 1.56-6.13 shsz=949) LYMPHOCYTES ABSOLUTE COUNT (BEAKER) (test 1.35 K/ L 1.18-3.74 mjbw=651) MONOCYTES ABSOLUTE COUNT (BEAKER) (test 0.96 K/ L 0.24-0.36 skkh=857) EOSINOPHILS ABSOLUTE COUNT (BEAKER) (test 0.19 K/ L 0.04-0.36 lcps=043) BASOPHILS ABSOLUTE COUNT (BEAKER) (test 0.07 K/ L 0.01-0.08 leug=556) IMMATURE GRANULOCYTES-RELATIVE PERCENT (BEAKER) 1 % 0-1 (test zjpy=5502) [id number] 21:19:00 Test Item Value Reference Range Comments PHOSPHORUS (BEAKER) (test wyvn=839) 4.4 mg/dL 2.3-4.7 [id number] 21:19:00 Test Item Value Reference Range Comments MAGNESIUM (BEAKER) (test ernf=364) 2.1 mg/dL 1.6-2.6 BASIC METABOLIC [id number] 21:19:00 Test Item Value Reference Range Comments SODIUM (BEAKER) (test 146 meq/L 136-145 xjdh=736) POTASSIUM (BEAKER) (test 3.9 meq/L 3.5-5.1 dzyv=897) CHLORIDE (BEAKER) (test 108 meq/L 98-107 ujmy=915) CO2 (BEAKER) (test 27 meq/L 22-29 zpyb=935) BLOOD UREA NITROGEN 24 mg/dL 7-21 (BEAKER) (test fbtt=740) CREATININE (BEAKER) (test 1.64 mg/dL 0.57-1.25 vobf=035) GLUCOSE RANDOM (BEAKER) 120 mg/dL 70-105 (test fgyv=579) CALCIUM (BEAKER) (test 9.5 mg/dL 8.4-10.2 nolu=571) EGFR (BEAKER) (test 38 mL/min/1.73 sq m ESTIMATED GFR IS NOT wesv=2224) ACCURATE CREATININE CLEARANCE IN PREDICTING GLOMERULAR FILTRATION RATE. ESTIMATED GFR IS NOT APPLICABLE FOR DIALYSIS PATIENTS. POCT-GLUCOSE [id number] 18:36:00 Test Item Value Reference Range Comments POC-GLUCOSE METER (BEAKER) 129 mg/dL 70-110 TESTED AT [address] (test inqx=0309) [place] [address] POCT-GLUCOSE [id number] 16:19:00 Test Item Value Reference Range Comments POC-GLUCOSE METER (BEAKER) 132 mg/dL 70-110 TESTED AT [address] (test ftoe=3219) [place] [address] [id number] 13:57:00 Test Item Value Reference Range Comments PHOSPHORUS (BEAKER) (test spff=207) 4.2 mg/dL 2.3-4.7 BASIC METABOLIC [id number] 13:57:00 Test Item Value Reference Range Comments SODIUM (BEAKER) (test 147 meq/L 136-145 gwyu=114) POTASSIUM (BEAKER) (test 3.7 meq/L 3.5-5.1 jtoj=339) CHLORIDE (BEAKER) (test 110 meq/L 98-107 lxmo=859) CO2 (BEAKER) (test 25 meq/L 22-29 zozp=209) BLOOD UREA NITROGEN 23 mg/dL 7-21 (BEAKER) (test ogon=366) CREATININE (BEAKER) (test 1.58 mg/dL 0.57-1.25 exbc=374) GLUCOSE RANDOM (BEAKER) 129 mg/dL 70-105 (test mdxe=445) CALCIUM (BEAKER) (test 9.2 mg/dL 8.4-10.2 zmkd=259) EGFR (BEAKER) (test 39 mL/min/1.73 sq m ESTIMATED GFR IS NOT taod=7868) ACCURATE CREATININE CLEARANCE IN PREDICTING GLOMERULAR FILTRATION RATE. ESTIMATED GFR IS NOT APPLICABLE FOR DIALYSIS PATIENTS. BLOOD GAS, [id number] 13:48:00 Test Item Value Reference Range Comments PH ARTERIAL (BEAKER) (test jcqc=828) 7.42 7.35-7.45 PCO2 ARTERIAL (BEAKER) (test jspk=233) 47 mmHg 35-45 PO2 ARTERIAL (BEAKER) (test ftzy=162) 202 mmHg 80-90 O2 SATURATION ARTERIAL (BEAKER) (test jpgg=119) 99.4 % 96.0-97.0 HCO3 ARTERIAL (BEAKER) (test yupd=660) 29 mmol/L 21-29 BASE EXCESS ARTERIAL (BEAKER) (test zmvu=463) 4.4 mmol/L -2.0-3.0 PATIENT TEMPERATURE (BEAKER) (test aalq=4296) 37.6 C FIO2 (BEAKER) (test ftwk=4290) 100.0 % POCT-GLUCOSE [id number] 13:31:00 Test Item Value Reference Range Comments POC-GLUCOSE METER (BEAKER) 128 mg/dL 70-110 TESTED AT [address] (test frgm=0386) [place] [address] POCT-GLUCOSE [id number] 11:02:00 Test Item Value Reference Range Comments POC-GLUCOSE METER (BEAKER) 137 mg/dL 70-110 TESTED AT [address] (test iedf=6509) [place] [id number] POCT-GLUCOSE [id number] 11:02:00 Test Item Value Reference Range Comments POC-GLUCOSE METER (BEAKER) 141 mg/dL 70-110 TESTED AT [address] (test dvtq=6624) [place] [id number] POCT-GLUCOSE [id number] 11:02:00 Test Item Value Reference Range Comments POC-GLUCOSE METER (BEAKER) 104 mg/dL 70-110 TESTED AT [address] (test ycqq=8970) [place] [id number] BLOOD [id number] 11:00:00 Test Item Value Reference Range Comments CULTURE (BEAKER) (test hsem=1049) No growth in 5 days BLOOD [id number] 11:00:00 Test Item Value Reference Range Comments CULTURE (BEAKER) (test azch=4271) No growth in 5 days CBC W/PLT COUNT & AUTO [id number] 08:54:00 Test Item Value Reference Range Comments WHITE BLOOD CELL COUNT (BEAKER) (test uapv=222) 13.8 K/ L 3.5-10.5 RED BLOOD CELL COUNT (BEAKER) (test amua=453) 2.54 M/ L 3.93-5.22 HEMOGLOBIN (BEAKER) (test tlol=281) 7.7 GM/DL 11.2-15.7 HEMATOCRIT (BEAKER) (test nvdi=901) 25.2 % 34.1-44.9 MEAN CORPUSCULAR VOLUME (BEAKER) (test yuxs=171) 99.2 fL 79.4-94.8 MEAN CORPUSCULAR HEMOGLOBIN (BEAKER) (test 30.3 pg 25.6-32.2 zfou=727) MEAN CORPUSCULAR HEMOGLOBIN CONC (BEAKER) (test 30.6 GM/DL 32.2-35.5 lvhi=668) RED CELL DISTRIBUTION WIDTH (BEAKER) (test 15.2 % 11.7-14.4 pkxx=568) PLATELET COUNT (BEAKER) (test rkvh=684) 127 K/CU MM 150-450 MEAN PLATELET VOLUME (BEAKER) (test ezxv=179) 10.6 fL 9.4-12.3 NUCLEATED RED BLOOD CELLS (BEAKER) (test 0 /100 WBC 0-0 aghq=373) NEUTROPHILS RELATIVE PERCENT (BEAKER) (test 81 % jhqc=450) LYMPHOCYTES RELATIVE PERCENT (BEAKER) (test 8 % uufg=187) MONOCYTES RELATIVE PERCENT (BEAKER) (test 9 % rzgx=009) EOSINOPHILS RELATIVE PERCENT (BEAKER) (test 1 % dlgk=848) BASOPHILS RELATIVE PERCENT (BEAKER) (test 0 % xibi=266) NEUTROPHILS ABSOLUTE COUNT (BEAKER) (test 11.11 K/ L 1.56-6.13 rdum=993) LYMPHOCYTES ABSOLUTE COUNT (BEAKER) (test 1.14 K/ L 1.18-3.74 ocfo=929) MONOCYTES ABSOLUTE COUNT (BEAKER) (test 1.20 K/ L 0.24-0.36 yzlz=008) EOSINOPHILS ABSOLUTE COUNT (BEAKER) (test 0.15 K/ L 0.04-0.36 iluv=737) BASOPHILS ABSOLUTE COUNT (BEAKER) (test 0.04 K/ L 0.01-0.08 jhzg=563) IMMATURE GRANULOCYTES-RELATIVE PERCENT (BEAKER) 1 % 0-1 (test tzxp=9263) BLOOD GAS, [id number] 08:40:00 Test Item Value Reference Range Comments PH ARTERIAL (BEAKER) (test hwdj=227) 7.43 7.35-7.45 PCO2 ARTERIAL (BEAKER) (test tlhd=651) 35 mmHg 35-45 PO2 ARTERIAL (BEAKER) (test vicp=805) 82 mmHg 80-90 O2 SATURATION ARTERIAL (BEAKER) (test xwrp=051) 95.7 % 96.0-97.0 HCO3 ARTERIAL (BEAKER) (test troo=340) 22 mmol/L 21-29 BASE EXCESS ARTERIAL (BEAKER) (test rszi=416) -1.3 mmol/L -2.0-3.0 PATIENT TEMPERATURE (BEAKER) (test uwco=7777) 38.3 C FIO2 (BEAKER) (test rjbx=5419) 40.0 % [id number] 06:59:00 Test Item Value Reference Range Comments PHOSPHORUS (BEAKER) (test ggim=244) 3.4 mg/dL 2.3-4.7 [id number] 06:59:00 Test Item Value Reference Range Comments MAGNESIUM (BEAKER) (test rdpo=068) 2.0 mg/dL 1.6-2.6 BASIC METABOLIC [id number] 06:59:00 Test Item Value Reference Range Comments SODIUM (BEAKER) (test 147 meq/L 136-145 kyst=881) POTASSIUM (BEAKER) (test 3.7 meq/L 3.5-5.1 zgik=581) CHLORIDE (BEAKER) (test 111 meq/L 98-107 hubv=811) CO2 (BEAKER) (test 23 meq/L 22-29 bvfy=706) BLOOD UREA NITROGEN 24 mg/dL 7-21 (BEAKER) (test vrtt=469) CREATININE (BEAKER) (test 1.57 mg/dL 0.57-1.25 rdih=746) GLUCOSE RANDOM (BEAKER) 121 mg/dL 70-105 (test nlnm=421) CALCIUM (BEAKER) (test 9.0 mg/dL 8.4-10.2 bisr=551) EGFR (BEAKER) (test 39 mL/min/1.73 sq m ESTIMATED GFR IS NOT tfjl=8428) ACCURATE CREATININE CLEARANCE IN PREDICTING GLOMERULAR FILTRATION RATE. ESTIMATED GFR IS NOT APPLICABLE FOR DIALYSIS PATIENTS. POCT-GLUCOSE [id number] 06:27:00 Test Item Value Reference Range Comments POC-GLUCOSE METER (BEAKER) 95 mg/dL 70-110 TESTED AT [facility] [address] [facility] (test faok=1201) [facility] [address] POCT-GLUCOSE [id number] 06:04:00 Test Item Value Reference Range Comments POC-GLUCOSE METER (BEAKER) 128 mg/dL 70-110 TESTED AT [address] (test piim=2001) [place] [address] [id number] 05:36:00 Test Item Value Reference Range Comments PHOSPHORUS (BEAKER) (test nvgp=911) 3.4 mg/dL 2.3-4.7 BASIC METABOLIC [id number] 05:36:00 Test Item Value Reference Range Comments SODIUM (BEAKER) (test 146 meq/L 136-145 rkdo=250) POTASSIUM (BEAKER) (test 3.6 meq/L 3.5-5.1 nsaw=802) CHLORIDE (BEAKER) (test 110 meq/L 98-107 dzph=385) CO2 (BEAKER) (test 25 meq/L 22-29 uqks=697) BLOOD UREA NITROGEN 25 mg/dL 7-21 (BEAKER) (test iewt=500) CREATININE (BEAKER) (test 1.58 mg/dL 0.57-1.25 umyd=277) GLUCOSE RANDOM (BEAKER) 114 mg/dL 70-105 (test aebq=511) CALCIUM (BEAKER) (test 8.9 mg/dL 8.4-10.2 jonx=159) EGFR (BEAKER) (test 39 mL/min/1.73 sq m ESTIMATED GFR IS NOT okfr=6846) ACCURATE CREATININE CLEARANCE IN PREDICTING GLOMERULAR FILTRATION RATE. ESTIMATED GFR IS NOT APPLICABLE FOR DIALYSIS PATIENTS. HEPATIC FUNCTION [id number] 05:36:00 Test Item Value Reference Range Comments TOTAL PROTEIN (BEAKER) (test hzhs=748) 6.3 gm/dL 6.0-8.3 ALBUMIN (BEAKER) (test ujbs=1941) 3.1 g/dL 3.5-5.0 BILIRUBIN TOTAL (BEAKER) (test kzmt=023) 1.1 mg/dL 0.2-1.2 BILIRUBIN DIRECT (BEAKER) (test nbru=590) 0.7 mg/dL 0.1-0.5 ALKALINE PHOSPHATASE (BEAKER) (test micl=815) 54 U/L 40-150 AST (SGOT) (BEAKER) (test hwuz=718) 23 U/L 5-34 ALT (SGPT) (BEAKER) (test uijo=267) 17 U/L 6-55 LACTATE DEHYDROGENASE (LDH)2017-07-25 05:36:00 Test Item Value Reference Range Comments LACTATE DEHYDROGENASE (BEAKER) (test tlww=670) 695 U/L 125-220 POCT-GLUCOSE [id number] 05:24:00 Test Item Value Reference Range Comments POC-GLUCOSE METER (BEAKER) 102 mg/dL 70-110 TESTED AT [facility] [address] [facility] (test cvoq=4337) [facility] [address] RAD, CHEST, 1 VIEW, NON [id number] 04:43:00Reason for exam:-> impellaShould this be performed at the bedside?->YesFINAL REPORT Chest one view. Clinical history: impella Comparison: Chest radiograph 07/24/17 Technique: A single frontal view of the chest was obtained. Findings: Cardiomediastinal contours are unchanged. Endotracheal and feeding tubes as well as a right IJ [place]-Jagdeep catheter are unchanged in position. There are patchy bibasilar opacities which may represent atelectasis and/or pneumonia. There is mild elevation of the left hemidiaphragm. There is no definite pleural effusionor pneumothorax. Signed: Alexia Ramirez Verified Date/Time: 07/25/2017 04:43:27 ReadingLocation: [facility] B1 C013T Transitional Reading Room [id number] 00:51:00 Test Item Value Reference Range Comments PHOSPHORUS (BEAKER) (test awmq=362) 3.4 mg/dL 2.3-4.7 BASIC METABOLIC [id number] 00:51:00 Test Item Value Reference Range Comments SODIUM (BEAKER) (test 146 meq/L 136-145 daiz=730) POTASSIUM (BEAKER) (test 4.0 meq/L 3.5-5.1 zimi=624) CHLORIDE (BEAKER) (test 110 meq/L 98-107 asmk=098) CO2 (BEAKER) (test 26 meq/L 22-29 lohw=390) BLOOD UREA NITROGEN 26 mg/dL 7-21 (BEAKER) (test djxs=768) CREATININE (BEAKER) (test 1.53 mg/dL 0.57-1.25 ophp=629) GLUCOSE RANDOM (BEAKER) 105 mg/dL 70-105 (test vghb=166) CALCIUM (BEAKER) (test 8.8 mg/dL 8.4-10.2 zhnz=948) EGFR (BEAKER) (test 41 mL/min/1.73 sq m ESTIMATED GFR IS NOT lxdz=3630) ACCURATE CREATININE CLEARANCE IN PREDICTING GLOMERULAR FILTRATION RATE. ESTIMATED GFR IS NOT APPLICABLE FOR DIALYSIS PATIENTS. POCT-GLUCOSE [id number] 00:32:00 Test Item Value Reference Range Comments POC-GLUCOSE METER (BEAKER) 119 mg/dL 70-110 TESTED AT [address] (test mggi=5937) [place] [address] POCT-GLUCOSE [id number] 00:27:00 Test Item Value Reference Range Comments POC-GLUCOSE METER (BEAKER) 114 mg/dL 70-110 TESTED AT [address] (test rzzo=1269) [place] [address] POCT-GLUCOSE [id number] 23:58:00 Test Item Value Reference Range Comments POC-GLUCOSE METER (BEAKER) 117 mg/dL 70-110 TESTED AT [address] (test vtpj=1667) [place] [address] [id number] 21:24:00 Test Item Value Reference Range Comments MAGNESIUM (BEAKER) (test xmvr=321) 2.0 mg/dL 1.6-2.6 POCT-GLUCOSE [id number] 20:24:00 Test Item Value Reference Range Comments POC-GLUCOSE METER (BEAKER) 130 mg/dL 70-110 TESTED AT [facility] [address] (test odto=6280) [facility] [address] [id number] 19:20:00 Test Item Value Reference Range Comments POTASSIUM (BEAKER) (test bipq=145) 3.6 meq/L 3.5-5.1 [id number] 19:20:00 Test Item Value Reference Range Comments GLUCOSE RANDOM (BEAKER) (test ldzt=873) 168 mg/dL 70-105 [id number] 18:01:00 Test Item Value Reference Range Comments PHOSPHORUS (BEAKER) (test mtjw=961) 3.7 mg/dL 2.3-4.7 BASIC METABOLIC [id number] 18:01:00 Test Item Value Reference Range Comments SODIUM (BEAKER) (test 145 meq/L 136-145 bnql=205) POTASSIUM (BEAKER) (test 3.9 meq/L 3.5-5.1 cexx=226) CHLORIDE (BEAKER) (test 109 meq/L 98-107 hgdh=757) CO2 (BEAKER) (test 27 meq/L 22-29 witb=092) BLOOD UREA NITROGEN 26 mg/dL 7-21 (BEAKER) (test xkgk=488) CREATININE (BEAKER) (test 1.47 mg/dL 0.57-1.25 finb=945) GLUCOSE RANDOM (BEAKER) 210 mg/dL 70-105 (test lsaa=282) CALCIUM (BEAKER) (test 8.5 mg/dL 8.4-10.2 fwyj=473) EGFR (BEAKER) (test 43 mL/min/1.73 sq m ESTIMATED GFR IS NOT aidw=6623) ACCURATE CREATININE CLEARANCE IN PREDICTING GLOMERULAR FILTRATION RATE. ESTIMATED GFR IS NOT APPLICABLE FOR DIALYSIS PATIENTS. GLUCOSE-STAT [id number] 17:14:00 Test Item Value Reference Range Comments GLUCOSE RANDOM (BEAKER) (test vzmy=590) 208 mg/dL 70-110 BLOOD GAS, [id number] 17:13:00 Test Item Value Reference Range Comments PH ARTERIAL (BEAKER) (test hgqo=648) 7.44 7.35-7.45 PCO2 ARTERIAL (BEAKER) (test eywk=513) 43 mmHg 35-45 PO2 ARTERIAL (BEAKER) (test ybdx=984) 58 mmHg 80-90 O2 SATURATION ARTERIAL (BEAKER) (test ewfy=054) 90.8 % 96.0-97.0 HCO3 ARTERIAL (BEAKER) (test pftz=458) 28 mmol/L 21-29 BASE EXCESS ARTERIAL (BEAKER) (test nbju=836) 3.9 mmol/L -2.0-3.0 PATIENT TEMPERATURE (BEAKER) (test cfan=8561) 37.0 C FIO2 (BEAKER) (test wcmo=6579) 100.0 % RAD, CHEST, 1 VIEW, NON [id number] 14:00:00Reason for exam:->post intubationShould this be performed at the bedside?->YesFINAL REPORT AP chest. HISTORY: Endotracheal tube COMPARISON: 07/24/2017 IMPRESSION:Endotracheal tube projects deep in the trachea, approximately 1-2 cm above the level of the toro. Cardiomegaly similar to previous. Worsening aeration at the left lung base. Mild pulmonary vascular congestion. No pneumothorax. Signed: Mitchel Jarquin MDReport Verified Date/Time: 07/24/2017 14:00:17 Reading Location: [address] Body Reading Room [id number] 13:40:00 Test Item Value Reference Range Comments PHOSPHORUS (BEAKER) (test xvpw=643) 4.3 mg/dL 2.3-4.7 [id number] 13:40:00 Test Item Value Reference Range Comments MAGNESIUM (BEAKER) (test ozth=582) 2.0 mg/dL 1.6-2.6 BASIC METABOLIC [id number] 13:40:00 Test Item Value Reference Range Comments SODIUM (BEAKER) (test 145 meq/L 136-145 hwqm=348) POTASSIUM (BEAKER) (test 3.9 meq/L 3.5-5.1 xzye=634) CHLORIDE (BEAKER) (test 108 meq/L 98-107 wyzw=640) CO2 (BEAKER) (test 24 meq/L 22-29 upxi=986) BLOOD UREA NITROGEN 28 mg/dL 7-21 (BEAKER) (test cwcp=068) CREATININE (BEAKER) (test 1.43 mg/dL 0.57-1.25 vgtz=376) GLUCOSE RANDOM (BEAKER) 206 mg/dL 70-105 (test dple=507) CALCIUM (BEAKER) (test 8.5 mg/dL 8.4-10.2 ltbb=313) EGFR (BEAKER) (test 44 mL/min/1.73 sq m ESTIMATED GFR IS NOT oxxb=5011) ACCURATE CREATININE CLEARANCE IN PREDICTING GLOMERULAR FILTRATION RATE. ESTIMATED GFR IS NOT APPLICABLE FOR DIALYSIS PATIENTS. LACTIC ACID, ARTERIAL, WHOLE [id number] 13:36:00 Test Item Value Reference Range Comments LACTATE BLOOD ARTERIAL (2) (BEAKER) (test 0.7 mmol/L 0.5-2.2 mxmn=4751) Effective 08/06/2015: Units/Reference Range ChangeNew: 0.5-2.2 mmol/L Previous: 5 -20 mg/dLCBC W/PLT COUNT & AUTO [id number] 13:24:00 Test Item Value Reference Range Comments WHITE BLOOD CELL COUNT (BEAKER) (test wtvw=801) 10.5 K/ L 3.5-10.5 RED BLOOD CELL COUNT (BEAKER) (test tkcv=608) 2.70 M/ L 3.93-5.22 HEMOGLOBIN (BEAKER) (test krup=323) 8.1 GM/DL 11.2-15.7 HEMATOCRIT (BEAKER) (test awtz=235) 27.0 % 34.1-44.9 MEAN CORPUSCULAR VOLUME (BEAKER) (test prhg=901) 100.0 fL 79.4-94.8 MEAN CORPUSCULAR HEMOGLOBIN (BEAKER) (test 30.0 pg 25.6-32.2 qcyj=210) MEAN CORPUSCULAR HEMOGLOBIN CONC (BEAKER) (test 30.0 GM/DL 32.2-35.5 uazi=232) RED CELL DISTRIBUTION WIDTH (BEAKER) (test 14.9 % 11.7-14.4 eglc=817) PLATELET COUNT (BEAKER) (test smyo=187) 117 K/CU MM 150-450 MEAN PLATELET VOLUME (BEAKER) (test xzym=314) 10.9 fL 9.4-12.3 NUCLEATED RED BLOOD CELLS (BEAKER) (test 0 /100 WBC 0-0 xank=311) NEUTROPHILS RELATIVE PERCENT (BEAKER) (test 78 % apzi=360) LYMPHOCYTES RELATIVE PERCENT (BEAKER) (test 10 % qxnw=328) MONOCYTES RELATIVE PERCENT (BEAKER) (test 10 % jdfd=166) EOSINOPHILS RELATIVE PERCENT (BEAKER) (test 1 % pcxa=403) BASOPHILS RELATIVE PERCENT (BEAKER) (test 0 % fxkt=567) NEUTROPHILS ABSOLUTE COUNT (BEAKER) (test 8.20 K/ L 1.56-6.13 kocv=746) LYMPHOCYTES ABSOLUTE COUNT (BEAKER) (test 1.00 K/ L 1.18-3.74 cmjv=521) MONOCYTES ABSOLUTE COUNT (BEAKER) (test 1.06 K/ L 0.24-0.36 vwdp=574) EOSINOPHILS ABSOLUTE COUNT (BEAKER) (test 0.09 K/ L 0.04-0.36 xnik=805) BASOPHILS ABSOLUTE COUNT (BEAKER) (test 0.04 K/ L 0.01-0.08 sscd=837) IMMATURE GRANULOCYTES-RELATIVE PERCENT (BEAKER) 1 % 0-1 (test oduk=7328) OXYGEN SATURATION, [id number] 13:08:00 Test Item Value Reference Range Comments O2 SATURATION (MEASURED) (BEAKER) (test abmf=1938) 65.1 % PA catheter tipBLOOD GAS, [id number] 13:08:00 Test Item Value Reference Range Comments PH ARTERIAL (BEAKER) (test kmrg=256) 7.42 7.35-7.45 PCO2 ARTERIAL (BEAKER) (test bjsd=830) 42 mmHg 35-45 PO2 ARTERIAL (BEAKER) (test aipa=576) 239 mmHg 80-90 O2 SATURATION ARTERIAL (BEAKER) (test sykw=880) 99.6 % 96.0-97.0 HCO3 ARTERIAL (BEAKER) (test rdpd=186) 27 mmol/L 21-29 BASE EXCESS ARTERIAL (BEAKER) (test dmrp=287) 2.1 mmol/L -2.0-3.0 PATIENT TEMPERATURE (BEAKER) (test gyeg=2701) 36.6 C FIO2 (BEAKER) (test zjtv=5469) 100.0 % GLUCOSE-STAT [id number] 13:08:00 Test Item Value Reference Range Comments GLUCOSE RANDOM (BEAKER) (test yuhs=649) 194 mg/dL 70-110 HGB/HCT (H&H) - STAT [id number] 13:08:00 Test Item Value Reference Range Comments HEMOGLOBIN (BEAKER) (test pibi=874) 8.8 g/dL 12.0-15.0 HEMATOCRIT (BEAKER) (test rbev=331) 26.0 % 36.0-45.0 CALCIUM, [id number] 13:08:00 Test Item Value Reference Range Comments CALCIUM IONIZED (BEAKER) (test dhxd=044) 1.08 mmol/L 1.12-1.27 PH, BLOOD (BEAKER) (test mlpd=9767) 7.41 SODIUM NA-STAT [id number] 13:07:00 Test Item Value Reference Range Comments SODIUM (BEAKER) (test ycim=081) 140 meq/L 135-148 POTASSIUM-STAT [id number] 13:07:00 Test Item Value Reference Range Comments POTASSIUM (BEAKER) (test kztp=796) 3.7 meq/L 3.6-5.5 SODIUM NA-STAT [id number] 11:39:00 Test Item Value Reference Range Comments SODIUM (BEAKER) (test hlav=396) 141 meq/L 135-148 POTASSIUM-STAT [id number] 11:39:00 Test Item Value Reference Range Comments POTASSIUM (BEAKER) (test osyd=433) 3.6 meq/L 3.6-5.5 BLOOD GAS, [id number] 11:39:00 Test Item Value Reference Range Comments PH ARTERIAL (BEAKER) (test lnfb=758) 7.44 7.35-7.45 PCO2 ARTERIAL (BEAKER) (test yutk=639) 42 mmHg 35-45 PO2 ARTERIAL (BEAKER) (test ebjp=254) 234 mmHg 80-90 O2 SATURATION ARTERIAL (BEAKER) (test xfuz=837) 99.6 % 96.0-97.0 HCO3 ARTERIAL (BEAKER) (test rspq=152) 28 mmol/L 21-29 BASE EXCESS ARTERIAL (BEAKER) (test afot=768) 3.4 mmol/L -2.0-3.0 PATIENT TEMPERATURE (BEAKER) (test noxn=6298) 36.8 C FIO2 (BEAKER) (test yezo=1863) 86.0 % GLUCOSE-STAT [id number] 11:39:00 Test Item Value Reference Range Comments GLUCOSE RANDOM (BEAKER) (test nvaj=504) 194 mg/dL 70-110 HGB/HCT (H&H) - STAT [id number] 11:39:00 Test Item Value Reference Range Comments HEMOGLOBIN (BEAKER) (test vzlg=616) 8.8 g/dL 12.0-15.0 HEMATOCRIT (BEAKER) (test zaxd=470) 26.0 % 36.0-45.0 CALCIUM, [id number] 11:39:00 Test Item Value Reference Range Comments CALCIUM IONIZED (BEAKER) (test qnue=949) 1.06 mmol/L 1.12-1.27 PH, BLOOD (BEAKER) (test xxeh=1725) 7.44 BLOOD GAS, [id number] 10:56:00 Test Item Value Reference Range Comments PH ARTERIAL (BEAKER) (test xhcv=206) 7.43 7.35-7.45 PCO2 ARTERIAL (BEAKER) (test nvfr=002) 46 mmHg 35-45 PO2 ARTERIAL (BEAKER) (test zrox=224) 223 mmHg 80-90 O2 SATURATION ARTERIAL (BEAKER) (test qype=820) 99.5 % 96.0-97.0 HCO3 ARTERIAL (BEAKER) (test fafu=605) 30 mmol/L 21-29 BASE EXCESS ARTERIAL (BEAKER) (test sack=847) 4.6 mmol/L -2.0-3.0 PATIENT TEMPERATURE (BEAKER) (test wpnc=1613) 37.0 C FIO2 (BEAKER) (test icfm=8315) 100.0 % GLUCOSE-STAT [id number] 10:56:00 Test Item Value Reference Range Comments GLUCOSE RANDOM (BEAKER) (test flle=981) 190 mg/dL 70-110 HGB/HCT (H&H) - STAT [id number] 10:56:00 Test Item Value Reference Range Comments HEMOGLOBIN (BEAKER) (test juxq=975) 8.7 g/dL 12.0-15.0 HEMATOCRIT (BEAKER) (test mgxt=637) 26.0 % 36.0-45.0 SODIUM NA-STAT [id number] 10:55:00 Test Item Value Reference Range Comments SODIUM (BEAKER) (test pwjj=284) 142 meq/L 135-148 POTASSIUM-STAT [id number] 10:55:00 Test Item Value Reference Range Comments POTASSIUM (BEAKER) (test inlc=081) 3.5 meq/L 3.6-5.5 [id number] 08:41:00 Test Item Value Reference Range Comments MAGNESIUM (BEAKER) (test lfer=298) 2.0 mg/dL 1.6-2.6 BLOOD GAS, [id number] 07:57:00 Test Item Value Reference Range Comments PH ARTERIAL (BEAKER) (test ikar=971) 7.48 7.35-7.45 PCO2 ARTERIAL (BEAKER) (test ifaz=251) 37 mmHg 35-45 PO2 ARTERIAL (BEAKER) (test ogpg=922) 71 mmHg 80-90 O2 SATURATION ARTERIAL (BEAKER) (test mlrg=289) 94.8 % 96.0-97.0 HCO3 ARTERIAL (BEAKER) (test zbhd=779) 27 mmol/L 21-29 BASE EXCESS ARTERIAL (BEAKER) (test cgow=344) 3.5 mmol/L -2.0-3.0 PATIENT TEMPERATURE (BEAKER) (test dwya=2019) 37.8 C FIO2 (BEAKER) (test bazg=4788) 32.0 % POCT-GLUCOSE [id number] 07:50:00 Test Item Value Reference Range Comments POC-GLUCOSE METER (BEAKER) 246 mg/dL 70-110 TESTED AT [facility] [address] [place] [address] (test yypc=8254) [facility] [address] RAD, CHEST, 1 VIEW, NON [id number] 04:54:00Reason for exam:-> impellaShould this be performed at the bedside?->YesFINAL REPORT CLINICAL INDICATION: Support lines. Comparison: 07/23/2017 The cardiomediastinal contours are stable. Central pulmonary vascular prominence and bilateral parenchymalopacities are similar to previous. There is no pneumothorax. Support lines are stable. Signed: Adelso Sorensen Verified Date/Time: 07/24/2017 04:54:08 Reading Location: [address] Reading Room POCT-GLUCOSE [id number] 04:08:00 Test Item Value Reference Range Comments POC-GLUCOSE METER (BEAKER) 137 mg/dL 70-110 TESTED AT [facility] [address] (test zhof=8238) [place] [address] [id number] 03:02:00 Test Item Value Reference Range Comments PHOSPHORUS (BEAKER) (test tsre=430) 3.7 mg/dL 2.3-4.7 [id number] 03:02:00 Test Item Value Reference Range Comments MAGNESIUM (BEAKER) (test dybr=966) 2.3 mg/dL 1.6-2.6 BASIC METABOLIC [id number] 03:02:00 Test Item Value Reference Range Comments SODIUM (BEAKER) (test 145 meq/L 136-145 fyes=183) POTASSIUM (BEAKER) (test 4.0 meq/L 3.5-5.1 zkvl=845) CHLORIDE (BEAKER) (test 106 meq/L 98-107 tuvu=842) CO2 (BEAKER) (test 26 meq/L 22-29 zgbr=247) BLOOD UREA NITROGEN 26 mg/dL 7-21 (BEAKER) (test bmlr=815) CREATININE (BEAKER) (test 1.47 mg/dL 0.57-1.25 yyaq=128) GLUCOSE RANDOM (BEAKER) 141 mg/dL 70-105 (test hche=171) CALCIUM (BEAKER) (test 9.0 mg/dL 8.4-10.2 umwr=565) EGFR (BEAKER) (test 43 mL/min/1.73 sq m ESTIMATED GFR IS NOT pdkt=7320) ACCURATE CREATININE CLEARANCE IN PREDICTING GLOMERULAR FILTRATION RATE. ESTIMATED GFR IS NOT APPLICABLE FOR DIALYSIS PATIENTS. HEPATIC FUNCTION [id number] 03:02:00 Test Item Value Reference Range Comments TOTAL PROTEIN (BEAKER) (test mbpo=766) 6.6 gm/dL 6.0-8.3 ALBUMIN (BEAKER) (test wwuq=9948) 3.2 g/dL 3.5-5.0 BILIRUBIN TOTAL (BEAKER) (test zmen=312) 1.2 mg/dL 0.2-1.2 BILIRUBIN DIRECT (BEAKER) (test scjm=222) 0.6 mg/dL 0.1-0.5 ALKALINE PHOSPHATASE (BEAKER) (test tqkg=727) 55 U/L 40-150 AST (SGOT) (BEAKER) (test hekr=576) 33 U/L 5-34 ALT (SGPT) (BEAKER) (test mkpq=299) 25 U/L 6-55 LACTATE DEHYDROGENASE (LDH)2017-07-24 03:02:00 Test Item Value Reference Range Comments LACTATE DEHYDROGENASE (BEAKER) (test ydgh=809) 879 U/L 125-220 CBC W/PLT COUNT & AUTO [id number] 02:53:00 Test Item Value Reference Range Comments WHITE BLOOD CELL COUNT (BEAKER) (test vccz=994) 12.6 K/ L 3.5-10.5 RED BLOOD CELL COUNT (BEAKER) (test xcmh=010) 2.93 M/ L 3.93-5.22 HEMOGLOBIN (BEAKER) (test epfp=426) 8.7 GM/DL 11.2-15.7 HEMATOCRIT (BEAKER) (test qarm=831) 28.3 % 34.1-44.9 MEAN CORPUSCULAR VOLUME (BEAKER) (test syfj=498) 96.6 fL 79.4-94.8 MEAN CORPUSCULAR HEMOGLOBIN (BEAKER) (test 29.7 pg 25.6-32.2 bnlg=916) MEAN CORPUSCULAR HEMOGLOBIN CONC (BEAKER) (test 30.7 GM/DL 32.2-35.5 pmwo=052) RED CELL DISTRIBUTION WIDTH (BEAKER) (test 14.7 % 11.7-14.4 zstm=762) PLATELET COUNT (BEAKER) (test adom=956) 126 K/CU MM 150-450 MEAN PLATELET VOLUME (BEAKER) (test mlri=394) 11.0 fL 9.4-12.3 NUCLEATED RED BLOOD CELLS (BEAKER) (test 0 /100 WBC 0-0 nflo=240) NEUTROPHILS RELATIVE PERCENT (BEAKER) (test 78 % hupv=461) LYMPHOCYTES RELATIVE PERCENT (BEAKER) (test 10 % fiuf=059) MONOCYTES RELATIVE PERCENT (BEAKER) (test 10 % twkm=070) EOSINOPHILS RELATIVE PERCENT (BEAKER) (test 1 % zpfh=670) BASOPHILS RELATIVE PERCENT (BEAKER) (test 0 % sepi=640) NEUTROPHILS ABSOLUTE COUNT (BEAKER) (test 9.85 K/ L 1.56-6.13 qecu=726) LYMPHOCYTES ABSOLUTE COUNT (BEAKER) (test 1.27 K/ L 1.18-3.74 cqoi=252) MONOCYTES ABSOLUTE COUNT (BEAKER) (test 1.25 K/ L 0.24-0.36 oxmz=924) EOSINOPHILS ABSOLUTE COUNT (BEAKER) (test 0.10 K/ L 0.04-0.36 lqrn=925) BASOPHILS ABSOLUTE COUNT (BEAKER) (test 0.05 K/ L 0.01-0.08 dqpe=902) IMMATURE GRANULOCYTES-RELATIVE PERCENT (BEAKER) 1 % 0-1 (test qhoe=7871) [id number] 02:50:00 Test Item Value Reference Range Comments PROTIME (BEAKER) (test jwax=457) 16.7 seconds 11.7-14.7 INR (BEAKER) (test abgi=160) 1.4 <=5.9 PARTIAL THROMBOPLASTIN TIME (BEAKER) (test 78.5 seconds 22.5-36.0 gsgj=439) RECOMMENDED COUMADIN/WARFARIN INR THERAPY RANGESSTANDARD DOSE: 2.0 - 3.0 Includes: PROPHYLAXIS forvenous thrombosis, systemic embolization; TREATMENT for venous thrombosis and/or pulmonary embolus.HIGH RISK: Target INR is 2.5-3.5 for patients with mechanical heart valves.BLOOD [id number] 00:00:00 Test Item Value Reference Range Comments CULTURE (BEAKER) (test fsxo=9573) No growth in 5 days BLOOD [id number] 00:00:00 Test Item Value Reference Range Comments CULTURE (BEAKER) (test fira=4314) No growth in 5 days [id number] 22:01:00 Test Item Value Reference Range Comments MAGNESIUM (BEAKER) (test axme=049) 2.0 mg/dL 1.6-2.6 POCT-GLUCOSE [id number] 19:39:00 Test Item Value Reference Range Comments POC-GLUCOSE METER (BEAKER) 135 mg/dL 70-110 TESTED AT [facility] [address] [facility] (test psxz=0979) [facility] [address] BASIC METABOLIC [id number] 19:08:00 Test Item Value Reference Range Comments SODIUM (BEAKER) (test 145 meq/L 136-145 kxtn=664) POTASSIUM (BEAKER) (test 3.9 meq/L 3.5-5.1 vxez=135) CHLORIDE (BEAKER) (test 106 meq/L 98-107 pxeb=775) CO2 (BEAKER) (test 28 meq/L 22-29 swxy=277) BLOOD UREA NITROGEN 26 mg/dL 7-21 (BEAKER) (test lljc=018) CREATININE (BEAKER) (test 1.45 mg/dL 0.57-1.25 cklk=121) GLUCOSE RANDOM (BEAKER) 119 mg/dL 70-105 (test ltih=311) CALCIUM (BEAKER) (test 9.2 mg/dL 8.4-10.2 ojvp=738) EGFR (BEAKER) (test 43 mL/min/1.73 sq m ESTIMATED GFR IS NOT blid=1328) ACCURATE CREATININE CLEARANCE IN PREDICTING GLOMERULAR FILTRATION RATE. ESTIMATED GFR IS NOT APPLICABLE FOR DIALYSIS PATIENTS. [id number] 19:06:00 Test Item Value Reference Range Comments PHOSPHORUS (BEAKER) (test hlnv=973) 3.7 mg/dL 2.3-4.7 VANCOMYCIN LEVEL, [id number] 16:33:00 Test Item Value Reference Range Comments VANCOMYCIN TROUGH (BEAKER) (test eqkm=570) 17.8 ug/mL 10.0-20.0 If vancomycin trough level > 20 mcg/mL, hold next vancomycin dose, and contact MD and pharmacist.VARICELLA ZOSTER ANTIBODY, [id number] 14:47:00 Test Item Value Reference Range Comments VARICELLA ZOSTER IGG (AL) (BEAKER) (test lahu=1563) 2.3 Al VARICELLA ZOSTER RESULT INTERPRETATIONS: <=0.8 Al Nonreactive: Presumed non-immune to VZV 0.9-1.0 Al Equivocal >=1.1 Al Reactive: Presumed immune to VZVCYTOMEGALOVIRUS ANTIBODY, [id number] 14:46:00 Test Item Value Reference Range Comments CYTOMEGALOVIRUS IGG ANTIBODY (BEAKER) (test Negative sbtw=890) CYTOMEGALOVIRUS ANTIBODY, [id number] 14:46:00 Test Item Value Reference Range Comments CYTOMEGALOVIRUS IGM ANTIBODY (BEAKER) (test Negative wdyv=641) EBV-VCA ANTIBODY, [id number] 14:46:00 Test Item Value Reference Range Comments MARIO-CARMEN VCA IGG (BEAKER) (test ayko=491) Positive EBV-VCA ANTIBODY, [id number] 14:46:00 Test Item Value Reference Range Comments MARIO-CARMEN VCA IGM (BEAKER) (test uheb=797) Negative HERPES VIRUS ANTIBODY, [id number] 14:45:00 Test Item Value Reference Range Comments HERPES VIRUS IGG (BEAKER) (test fjtc=8251) Negative HSV IgG 1=NEGATIVEHSV IgG 2=NEGATIVETOXOPLASMA GONDII ANTIBODY, [id number] 14 :45:00 Test Item Value Reference Range Comments TOXOPLASMA GONDII IGG (BEAKER) (test yqzp=926) Negative [id number] 14:37:00 Test Item Value Reference Range Comments PARTIAL THROMBOPLASTIN TIME (BEAKER) (test 69.5 seconds 22.5-36.0 jwoo=523) OCCULT BLOOD, [id number] 14:34:00 Test Item Value Reference Range Comments FECAL OCCULT BLOOD (BEAKER) (test hiia=629) Negative Negative POCT-GLUCOSE [id number] 14:20:00 Test Item Value Reference Range Comments POC-GLUCOSE METER (BEAKER) 166 mg/dL 70-110 TESTED AT [address] (test ercj=1410) [facility] [address] POCT-GLUCOSE [id number] 14:20:00 Test Item Value Reference Range Comments POC-GLUCOSE METER (BEAKER) 82 mg/dL 70-110 TESTED AT [address] (test wjwx=9492) [place] [id number] 13:00:00 Test Item Value Reference Range Comments PHOSPHORUS (BEAKER) (test irmz=506) 3.2 mg/dL 2.3-4.7 BASIC METABOLIC [id number] 13:00:00 Test Item Value Reference Range Comments SODIUM (BEAKER) (test 143 meq/L 136-145 hstz=968) POTASSIUM (BEAKER) (test 3.8 meq/L 3.5-5.1 zdoe=358) CHLORIDE (BEAKER) (test 104 meq/L 98-107 lcfg=661) CO2 (BEAKER) (test 29 meq/L 22-29 vcna=727) BLOOD UREA NITROGEN 28 mg/dL 7-21 (BEAKER) (test tmnk=513) CREATININE (BEAKER) (test 1.44 mg/dL 0.57-1.25 uiwz=920) GLUCOSE RANDOM (BEAKER) 171 mg/dL 70-105 (test mwkn=095) CALCIUM (BEAKER) (test 9.1 mg/dL 8.4-10.2 dekv=423) EGFR (BEAKER) (test 44 mL/min/1.73 sq m ESTIMATED GFR IS NOT tpyg=2671) ACCURATE CREATININE CLEARANCE IN PREDICTING GLOMERULAR FILTRATION RATE. ESTIMATED GFR IS NOT APPLICABLE FOR DIALYSIS PATIENTS. POCT-GLUCOSE [id number] 12:29:00 Test Item Value Reference Range Comments POC-GLUCOSE METER (BEAKER) 179 mg/dL 70-110 TESTED AT [address] (test vtce=2546) [place] [address] CREATININE [id number] 11:15:00 Test Item Value Reference Range Comments CREATININE CLEARANCE (BEAKER) 45.8 mL/min 70.0-140.0 (test injr=942) VOLUME, TOTAL (BEAKER) (test 3400 ml uotc=8812) CREATININE URINE (BEAKER) (test 36.8 mg/dL mpun=909) WQVU-JNLFGRJWLEK-003 (BEAKER) Анна Encarnacion MD (test ctbw=2930) (electronic signature) PATIENT HEIGHT (CM) (BEAKER) 165.1 cm (test vfgx=6398) PATIENT WEIGHT (KG) (BEAKER) 84.100 kg (test vnyx=5240) [id number] 09:15:00 Test Item Value Reference Range Comments POTASSIUM (BEAKER) (test tllf=256) 4.1 meq/L 3.5-5.1 PRN - repeat potassium levels every 1 hour until glucose level is less than 450 mg/[id number] 09:15:00 Test Item Value Reference Range Comments MAGNESIUM (BEAKER) (test omex=800) 2.4 mg/dL 1.6-2.6 PRN - repeat potassium levels every 1 hour until glucose level is less than 450 mg/dLPOCT-GLUCOSE [id number] 08:47:00 Test Item Value Reference Range Comments POC-GLUCOSE METER (BEAKER) 155 mg/dL 70-110 TESTED AT [address] (test vdet=6566) [place] [address] POCT-GLUCOSE [id number] 06:12:00 Test Item Value Reference Range Comments POC-GLUCOSE METER (BEAKER) 143 mg/dL 70-110 TESTED AT [facility] [address] [facility] (test xwsk=2179) [facility] [address] POCT-GLUCOSE [id number] 06:12:00 Test Item Value Reference Range Comments POC-GLUCOSE METER (BEAKER) 123 mg/dL 70-110 TESTED AT [place] [id number] [facility] (test rtfp=6709) [facility] [address] RAD, CHEST, 1 VIEW, NON [id number] 05:36:00Reason for exam:->respiratory insufficiencyFINAL REPORT Chest one view. Clinical history: respiratory insufficiency Comparison: Chest radiograph 07/22/2017 Technique: A single frontal view of the chest was obtained. Findings: Cardiomediastinal contours are unchanged. There is a right IJ Olympia-Jagdeep catheter, with tip inthe right pulmonary artery. [...] Ramirezeport Verified Date/Time: 07/23/2017 05:36:35 Reading Location: [address] Reading Room CALCIUM, [id number] 05:19:00 Test Item Value Reference Range Comments CALCIUM IONIZED (BEAKER) (test rscq=399) 1.12 mmol/L 1.12-1.27 PH, BLOOD (BEAKER) (test cmhn=4595) 7.40 OXYGEN SATURATION, [id number] 05:18:00 Test Item Value Reference Range Comments O2 SATURATION (MEASURED) (BEAKER) (test hqgf=7376) 63.1 % POCT-GLUCOSE [id number] 05:05:00 Test Item Value Reference Range Comments POC-GLUCOSE METER (BEAKER) 131 mg/dL 70-110 TESTED AT [facility] [address] (test oame=7657) [place] [address] BLOOD GAS, [id number] 04:58:00 Test Item Value Reference Range Comments PH ARTERIAL (BEAKER) (test ucar=215) 7.41 7.35-7.45 PCO2 ARTERIAL (BEAKER) (test odib=206) 51 mmHg 35-45 PO2 ARTERIAL (BEAKER) (test mkyo=136) 93 mmHg 80-90 O2 SATURATION ARTERIAL (BEAKER) (test ppyj=894) 96.9 % 96.0-97.0 HCO3 ARTERIAL (BEAKER) (test csmm=769) 31 mmol/L 21-29 BASE EXCESS ARTERIAL (BEAKER) (test aqqp=209) 5.9 mmol/L -2.0-3.0 PATIENT TEMPERATURE (BEAKER) (test gdvn=9722) 37.4 C FIO2 (BEAKER) (test glzf=9516) 70.0 % [id number] 03:35:00 Test Item Value Reference Range Comments PARTIAL THROMBOPLASTIN TIME (BEAKER) (test 70.8 seconds 22.5-36.0 pfou=502) [id number] 03:34:00 Test Item Value Reference Range Comments PHOSPHORUS (BEAKER) (test jbdv=803) 3.0 mg/dL 2.3-4.7 [id number] 03:34:00 Test Item Value Reference Range Comments MAGNESIUM (BEAKER) (test xuqm=289) 2.1 mg/dL 1.6-2.6 BASIC METABOLIC [id number] 03:34:00 Test Item Value Reference Range Comments SODIUM (BEAKER) (test 144 meq/L 136-145 eojf=707) POTASSIUM (BEAKER) (test 3.9 meq/L 3.5-5.1 ktvy=979) CHLORIDE (BEAKER) (test 105 meq/L 98-107 lduq=684) CO2 (BEAKER) (test 29 meq/L 22-29 oabp=794) BLOOD UREA NITROGEN 29 mg/dL 7-21 (BEAKER) (test zbkw=464) CREATININE (BEAKER) (test 1.54 mg/dL 0.57-1.25 uabx=741) GLUCOSE RANDOM (BEAKER) 119 mg/dL 70-105 (test ljsy=479) CALCIUM (BEAKER) (test 9.1 mg/dL 8.4-10.2 onhf=915) EGFR (BEAKER) (test 40 mL/min/1.73 sq m ESTIMATED GFR IS NOT bfvz=3244) ACCURATE CREATININE CLEARANCE IN PREDICTING GLOMERULAR FILTRATION RATE. ESTIMATED GFR IS NOT APPLICABLE FOR DIALYSIS PATIENTS. HEPATIC FUNCTION [id number] 03:34:00 Test Item Value Reference Range Comments TOTAL PROTEIN (BEAKER) (test myqq=197) 6.7 gm/dL 6.0-8.3 ALBUMIN (BEAKER) (test kgza=7181) 3.3 g/dL 3.5-5.0 BILIRUBIN TOTAL (BEAKER) (test riyq=077) 1.2 mg/dL 0.2-1.2 BILIRUBIN DIRECT (BEAKER) (test bbvh=635) 0.6 mg/dL 0.1-0.5 ALKALINE PHOSPHATASE (BEAKER) (test oeew=612) 51 U/L 40-150 AST (SGOT) (BEAKER) (test aejo=539) 48 U/L 5-34 ALT (SGPT) (BEAKER) (test mdzp=903) 29 U/L 6-55 LACTATE DEHYDROGENASE (LDH)2017-07-23 03:34:00 Test Item Value Reference Range Comments LACTATE DEHYDROGENASE (BEAKER) (test friy=410) 1020 U/L 125-220 CBC W/PLT COUNT & AUTO [id number] 03:25:00 Test Item Value Reference Range Comments WHITE BLOOD CELL COUNT (BEAKER) (test zpyx=309) 11.7 K/ L 3.5-10.5 RED BLOOD CELL COUNT (BEAKER) (test bagd=834) 3.01 M/ L 3.93-5.22 HEMOGLOBIN (BEAKER) (test hxlt=105) 9.0 GM/DL 11.2-15.7 HEMATOCRIT (BEAKER) (test vhzm=343) 28.9 % 34.1-44.9 MEAN CORPUSCULAR VOLUME (BEAKER) (test tdjs=084) 96.0 fL 79.4-94.8 MEAN CORPUSCULAR HEMOGLOBIN (BEAKER) (test 29.9 pg 25.6-32.2 cbvd=478) MEAN CORPUSCULAR HEMOGLOBIN CONC (BEAKER) (test 31.1 GM/DL 32.2-35.5 gaaq=670) RED CELL DISTRIBUTION WIDTH (BEAKER) (test 15.0 % 11.7-14.4 qafj=972) PLATELET COUNT (BEAKER) (test mkyk=519) 128 K/CU MM 150-450 MEAN PLATELET VOLUME (BEAKER) (test cwmv=657) 11.3 fL 9.4-12.3 NUCLEATED RED BLOOD CELLS (BEAKER) (test 0 /100 WBC 0-0 dlsv=498) NEUTROPHILS RELATIVE PERCENT (BEAKER) (test 78 % wnxv=766) LYMPHOCYTES RELATIVE PERCENT (BEAKER) (test 11 % jgmd=133) MONOCYTES RELATIVE PERCENT (BEAKER) (test 10 % aatt=690) EOSINOPHILS RELATIVE PERCENT (BEAKER) (test 1 % aeni=572) BASOPHILS RELATIVE PERCENT (BEAKER) (test 0 % rujl=405) NEUTROPHILS ABSOLUTE COUNT (BEAKER) (test 9.07 K/ L 1.56-6.13 zwht=986) LYMPHOCYTES ABSOLUTE COUNT (BEAKER) (test 1.25 K/ L 1.18-3.74 pymt=358) MONOCYTES ABSOLUTE COUNT (BEAKER) (test 1.12 K/ L 0.24-0.36 jqsk=478) EOSINOPHILS ABSOLUTE COUNT (BEAKER) (test 0.12 K/ L 0.04-0.36 tlse=861) BASOPHILS ABSOLUTE COUNT (BEAKER) (test 0.05 K/ L 0.01-0.08 pmxq=482) IMMATURE GRANULOCYTES-RELATIVE PERCENT (BEAKER) 1 % 0-1 (test fiql=2788) POCT-GLUCOSE [id number] 03:09:00 Test Item Value Reference Range Comments POC-GLUCOSE METER (BEAKER) 114 mg/dL 70-110 TESTED AT [address] (test srhc=5634) [place] [id number] POCT-GLUCOSE [id number] 03:09:00 Test Item Value Reference Range Comments POC-GLUCOSE METER (BEAKER) 122 mg/dL 70-110 TESTED AT [address] (test dopt=0932) [place] [id number] BASIC METABOLIC [id number] 00:32:00 Test Item Value Reference Range Comments SODIUM (BEAKER) (test 144 meq/L 136-145 trdm=671) POTASSIUM (BEAKER) (test 4.2 meq/L 3.5-5.1 cwvs=396) CHLORIDE (BEAKER) (test 105 meq/L 98-107 fdyg=848) CO2 (BEAKER) (test 28 meq/L 22-29 qwma=125) BLOOD UREA NITROGEN 30 mg/dL 7-21 (BEAKER) (test krtn=537) CREATININE (BEAKER) (test 1.56 mg/dL 0.57-1.25 vfae=547) GLUCOSE RANDOM (BEAKER) 131 mg/dL 70-105 (test xmam=302) CALCIUM (BEAKER) (test 9.0 mg/dL 8.4-10.2 uhss=521) EGFR (BEAKER) (test 40 mL/min/1.73 sq m ESTIMATED GFR IS NOT qxvt=7569) ACCURATE CREATININE CLEARANCE IN PREDICTING GLOMERULAR FILTRATION RATE. ESTIMATED GFR IS NOT APPLICABLE FOR DIALYSIS PATIENTS. [id number] 00:31:00 Test Item Value Reference Range Comments PHOSPHORUS (BEAKER) (test mphq=225) 3.4 mg/dL 2.3-4.7 POCT-GLUCOSE [id number] 00:10:00 Test Item Value Reference Range Comments POC-GLUCOSE METER (BEAKER) 140 mg/dL 70-110 TESTED AT [address] (test xmmk=4556) [facility] [address] POCT-GLUCOSE [id number] 00:08:00 Test Item Value Reference Range Comments POC-GLUCOSE METER (BEAKER) 121 mg/dL 70-110 TESTED AT [address] (test ojdw=2307) [facility] [address] POCT-GLUCOSE [id number] 00:08:00 Test Item Value Reference Range Comments POC-GLUCOSE METER (BEAKER) 112 mg/dL 70-110 TESTED AT [address] (test swrz=8024) [facility] [address] POCT-GLUCOSE [id number] 00:08:00 Test Item Value Reference Range Comments POC-GLUCOSE METER (BEAKER) 84 mg/dL 70-110 TESTED AT [address] (test myub=7199) [facility] [address] BASIC METABOLIC [id number] 20:36:00 Test Item Value Reference Range Comments SODIUM (BEAKER) (test 145 meq/L 136-145 jmls=212) POTASSIUM (BEAKER) (test 3.6 meq/L 3.5-5.1 byix=315) CHLORIDE (BEAKER) (test 106 meq/L 98-107 alxu=800) CO2 (BEAKER) (test 31 meq/L 22-29 jtup=156) BLOOD UREA NITROGEN 32 mg/dL 7-21 (BEAKER) (test wwlc=990) CREATININE (BEAKER) (test 1.56 mg/dL 0.57-1.25 opbk=698) GLUCOSE RANDOM (BEAKER) 85 mg/dL 70-105 (test gdqu=429) CALCIUM (BEAKER) (test 9.0 mg/dL 8.4-10.2 oznx=810) EGFR (BEAKER) (test 40 mL/min/1.73 sq m ESTIMATED GFR IS NOT entj=1581) ACCURATE CREATININE CLEARANCE IN PREDICTING GLOMERULAR FILTRATION RATE. ESTIMATED GFR IS NOT APPLICABLE FOR DIALYSIS PATIENTS. [id number] 20:36:00 Test Item Value Reference Range Comments MAGNESIUM (BEAKER) (test xfnz=184) 2.4 mg/dL 1.6-2.6 [id number] 18:26:00 Test Item Value Reference Range Comments PHOSPHORUS (BEAKER) (test dhfm=667) 2.4 mg/dL 2.3-4.7 BASIC METABOLIC [id number] 18:26:00 Test Item Value Reference Range Comments SODIUM (BEAKER) (test 144 meq/L 136-145 fwai=024) POTASSIUM (BEAKER) (test 3.9 meq/L 3.5-5.1 oikd=259) CHLORIDE (BEAKER) (test 106 meq/L 98-107 snjg=752) CO2 (BEAKER) (test 30 meq/L 22-29 lzzn=688) BLOOD UREA NITROGEN 32 mg/dL 7-21 (BEAKER) (test sisa=584) CREATININE (BEAKER) (test 1.67 mg/dL 0.57-1.25 vgvh=744) GLUCOSE RANDOM (BEAKER) 141 mg/dL 70-105 (test yeqa=243) CALCIUM (BEAKER) (test 9.1 mg/dL 8.4-10.2 rdtc=998) EGFR (BEAKER) (test 37 mL/min/1.73 sq m ESTIMATED GFR IS NOT xxqy=2646) ACCURATE CREATININE CLEARANCE IN PREDICTING GLOMERULAR FILTRATION RATE. ESTIMATED GFR IS NOT APPLICABLE FOR DIALYSIS PATIENTS. LACTIC ACID, ARTERIAL, WHOLE [id number] 18:22:00 Test Item Value Reference Range Comments LACTATE BLOOD ARTERIAL (2) (BEAKER) (test 1.0 mmol/L 0.5-2.2 yiaj=6100) Effective 08/06/2015: Units/Reference Range ChangeNew: 0.5-2.2 mmol/L Previous: 5 -20 mg/dLPOCT-GLUCOSE [id number] 17:56:00 Test Item Value Reference Range Comments POC-GLUCOSE METER (BEAKER) 138 mg/dL 70-110 TESTED AT [address] (test jxin=8084) [place] [address] [id number] 16:19:00 Test Item Value Reference Range Comments POTASSIUM (BEAKER) (test ehco=332) 3.8 meq/L 3.5-5.1 PRN - repeat potassium levels every 1 hour until glucose level is less than 450 mg/[id number] 16:06:00 Test Item Value Reference Range Comments PARTIAL THROMBOPLASTIN TIME (BEAKER) (test 71.3 seconds 22.5-36.0 wdvq=346) OXYGEN SATURATION, [id number] 15:58:00 Test Item Value Reference Range Comments O2 SATURATION (MEASURED) (BEAKER) (test wbuh=6397) 58.6 % calibrationPOCT-GLUCOSE [id number] 15:51:00 Test Item Value Reference Range Comments POC-GLUCOSE METER (BEAKER) 147 mg/dL 70-110 TESTED AT [address] (test xjpk=3944) [place] [address] RAD, CHEST, 1 VIEW, NON [id number] 14:57:00Reason for exam:->s/p CVC placement Should this be performed at the bedside?->YesFINAL REPORT TECHNIQUE: Frontal chest radiograph dated 07/22/2017. CLINICAL HISTORY: CVC placement COMPARISON STUDY: Chest radiograph performed earlier the same day. IMPRESSION:There has been interval placement of a right-sided [place]- Jagdeep catheter with the tip in the main pulmonary artery. Impella device is unchanged in appearance. There is left lung base atelectasis. No pleural effusion or pneumothorax. Cardiomediastinal silhouette is normal in size. No pulmonary edema. Bonesare osteopenic. No fracture. Signed: Dawson No[place] Verified Date/Time: 07/22/2017 14:57:48 Reading Location: [facility] Radiology Reading Room PROTEIN ELECTROPHORESIS, [id number] 14:45:00 Test Item Value Reference Range Comments ALBUMIN FRACTION (BEAKER) 3.0 g/dL 3.5-5.5 (test aijh=406) ALPHA 1 FRACTION (BEAKER) 0.4 g/dL 0.2-0.4 (test nptt=226) ALPHA 2 FRACTION (BEAKER) 0.5 g/dL 0.5-0.9 (test fvtz=239) BETA FRACTION (BEAKER) (test 1.0 g/dL 0.6-1.1 hogg=388) GAMMA GLOBULIN FRACTION 1.2 g/dL 0.7-1.7 (BEAKER) (test juen=538) INTERPRETATION-119 (BEAKER) Albumin decreased. Alpha (test uepr=5270) globulin percentages increased. This suggests an acute phase response. [id number]-126 (BEAKER) Анна Encarnacion MD (electronic (test lata=3762) signature) PROTEIN TOTAL SERUM, SPEP 6.1 gm/dL 6.0-8.3 (BEAKER) (test ktmq=3967) POCT-GLUCOSE [id number] 14:34:00 Test Item Value Reference Range Comments POC-GLUCOSE METER (BEAKER) 137 mg/dL 70-110 TESTED AT [address] (test ftst=0127) [facility] [address] ANTI-NUCLEAR ANTIBODY (ROSLYN)2017-07-22 13:24:00 Test Item Value Reference Range Comments ANTI-NUCLEAR ANTIBODY (ROSLYN) (BEAKER) (test Positive Negative rvxi=575) ROSLYN TITER AND [id number] 13:24:00 Test Item Value Reference Range Comments ROSLYN TITER (BEAKER) (test dsok=9250) :640 ROSLYN PATTERN (BEAKER) (test ilzu=5641) Homogeneous [id number] 12:50:00 Test Item Value Reference Range Comments PHOSPHORUS (BEAKER) (test ians=600) 2.5 mg/dL 2.3-4.7 BASIC METABOLIC [id number] 12:50:00 Test Item Value Reference Range Comments SODIUM (BEAKER) (test 145 meq/L 136-145 mprx=222) POTASSIUM (BEAKER) (test 3.6 meq/L 3.5-5.1 nlsf=513) CHLORIDE (BEAKER) (test 107 meq/L 98-107 bdnt=758) CO2 (BEAKER) (test 30 meq/L 22-29 zxbv=881) BLOOD UREA NITROGEN 37 mg/dL 7-21 (BEAKER) (test peoy=536) CREATININE (BEAKER) (test 1.69 mg/dL 0.57-1.25 imhh=326) GLUCOSE RANDOM (BEAKER) 154 mg/dL 70-105 (test imtp=806) CALCIUM (BEAKER) (test 8.9 mg/dL 8.4-10.2 nyol=163) EGFR (BEAKER) (test 36 mL/min/1.73 sq m ESTIMATED GFR IS NOT iusz=0966) ACCURATE CREATININE CLEARANCE IN PREDICTING GLOMERULAR FILTRATION RATE. ESTIMATED GFR IS NOT APPLICABLE FOR DIALYSIS PATIENTS. BLOOD GAS, [id number] 12:36:00 Test Item Value Reference Range Comments PH ARTERIAL (BEAKER) (test qeck=621) 7.48 7.35-7.45 PCO2 ARTERIAL (BEAKER) (test idmg=275) 44 mmHg 35-45 PO2 ARTERIAL (BEAKER) (test jhlt=098) 156 mmHg 80-90 O2 SATURATION ARTERIAL (BEAKER) (test uihj=311) 99.1 % 96.0-97.0 HCO3 ARTERIAL (BEAKER) (test kaoc=873) 32 mmol/L 21-29 BASE EXCESS ARTERIAL (BEAKER) (test yukt=237) 7.4 mmol/L -2.0-3.0 PATIENT TEMPERATURE (BEAKER) (test erez=9047) 37.4 C FIO2 (BEAKER) (test uike=6237) 80.0 % POCT-GLUCOSE [id number] 12:26:00 Test Item Value Reference Range Comments POC-GLUCOSE METER (BEAKER) 147 mg/dL 70-110 TESTED AT [facility] [address] [facility] (test rqcg=3764) [facility] [address] URINE [id number] 11:56:00 Test Item Value Reference Range Comments CULTURE (BEAKER) (test xabs=2106) No growth POCT-GLUCOSE [id number] 11:11:00 Test Item Value Reference Range Comments POC-GLUCOSE METER (BEAKER) 172 mg/dL 70-110 TESTED AT [address] (test kklo=5524) [place] [id number] POCT-GLUCOSE [id number] 09:54:00 Test Item Value Reference Range Comments POC-GLUCOSE METER (BEAKER) 196 mg/dL 70-110 TESTED AT [address] (test bola=0930) [place] [address] LACTIC ACID, ARTERIAL, WHOLE [id number] 09:07:00 Test Item Value Reference Range Comments LACTATE BLOOD ARTERIAL (2) (BEAKER) (test 0.7 mmol/L 0.5-2.2 bule=8244) Effective 08/06/2015: Units/Reference Range ChangeNew: 0.5-2.2 mmol/L Previous: 5 -20 mg/[id number] 09:06:00 Test Item Value Reference Range Comments MAGNESIUM (BEAKER) (test pkyi=862) 2.2 mg/dL 1.6-2.6 POCT-GLUCOSE [id number] 08:39:00 Test Item Value Reference Range Comments POC-GLUCOSE METER (BEAKER) 188 mg/dL 70-110 TESTED AT [address] (test uqok=4000) [place] [address] POCT-GLUCOSE [id number] 08:37:00 Test Item Value Reference Range Comments POC-GLUCOSE METER (BEAKER) 195 mg/dL 70-110 TESTED AT [address] (test atlz=7400) [place] [id number] BLOOD GAS, [id number] 06:46:00 Test Item Value Reference Range Comments PH ARTERIAL (BEAKER) (test fdjs=178) 7.47 7.35-7.45 PCO2 ARTERIAL (BEAKER) (test pbud=323) 44 mmHg 35-45 PO2 ARTERIAL (BEAKER) (test cxpj=019) 57 mmHg 80-90 O2 SATURATION ARTERIAL (BEAKER) (test sidv=053) 91.1 % 96.0-97.0 HCO3 ARTERIAL (BEAKER) (test vqko=778) 32 mmol/L 21-29 BASE EXCESS ARTERIAL (BEAKER) (test ijvx=341) 7.1 mmol/L -2.0-3.0 PATIENT TEMPERATURE (BEAKER) (test fdgn=0501) 37.0 C [id number] 06:14:00 Test Item Value Reference Range Comments RPR SCREEN (BEAKER) (test dygt=097) Nonreactive Nonreactive CALCIUM, [id number] 05:52:00 Test Item Value Reference Range Comments CALCIUM IONIZED (BEAKER) (test mylh=060) 1.13 mmol/L 1.12-1.27 PH, BLOOD (BEAKER) (test oivk=4509) 7.46 [id number] 05:42:00 Test Item Value Reference Range Comments PHOSPHORUS (BEAKER) (test dhpd=959) 2.2 mg/dL 2.3-4.7 [id number] 05:42:00 Test Item Value Reference Range Comments MAGNESIUM (BEAKER) (test tujp=174) 2.1 mg/dL 1.6-2.6 HEPATIC FUNCTION [id number] 05:42:00 Test Item Value Reference Range Comments TOTAL PROTEIN (BEAKER) (test fpsz=327) 6.2 gm/dL 6.0-8.3 ALBUMIN (BEAKER) (test lwmg=2169) 3.1 g/dL 3.5-5.0 BILIRUBIN TOTAL (BEAKER) (test bztu=659) 1.4 mg/dL 0.2-1.2 BILIRUBIN DIRECT (BEAKER) (test xuch=570) 0.7 mg/dL 0.1-0.5 ALKALINE PHOSPHATASE (BEAKER) (test qeue=543) 49 U/L 40-150 AST (SGOT) (BEAKER) (test rvzh=199) 74 U/L 5-34 ALT (SGPT) (BEAKER) (test cqol=370) 37 U/L 6-55 LACTATE DEHYDROGENASE (LDH)2017-07-22 05:42:00 Test Item Value Reference Range Comments LACTATE DEHYDROGENASE (BEAKER) (test firh=932) 1339 U/L 125-220 [id number] 05:40:00 Test Item Value Reference Range Comments PHOSPHORUS (BEAKER) (test hzlx=895) 2.2 mg/dL 2.3-4.7 BASIC METABOLIC [id number] 05:40:00 Test Item Value Reference Range Comments SODIUM (BEAKER) (test 144 meq/L 136-145 miys=542) POTASSIUM (BEAKER) (test 4.0 meq/L 3.5-5.1 nsgy=224) CHLORIDE (BEAKER) (test 107 meq/L 98-107 trrn=056) CO2 (BEAKER) (test 28 meq/L 22-29 rpix=380) BLOOD UREA NITROGEN 36 mg/dL 7-21 (BEAKER) (test akah=924) CREATININE (BEAKER) (test 1.79 mg/dL 0.57-1.25 chbt=328) GLUCOSE RANDOM (BEAKER) 183 mg/dL 70-105 (test yrkj=260) CALCIUM (BEAKER) (test 8.9 mg/dL 8.4-10.2 hneq=419) EGFR (BEAKER) (test 34 mL/min/1.73 sq m ESTIMATED GFR IS NOT mbtq=3890) ACCURATE CREATININE CLEARANCE IN PREDICTING GLOMERULAR FILTRATION RATE. ESTIMATED GFR IS NOT APPLICABLE FOR DIALYSIS PATIENTS. OXYGEN SATURATION, [id number] 05:29:00 Test Item Value Reference Range Comments O2 SATURATION (MEASURED) (BEAKER) (test xwhd=4304) 54.7 % [id number] 05:29:00 Test Item Value Reference Range Comments PARTIAL THROMBOPLASTIN TIME (BEAKER) (test 70.7 seconds 22.5-36.0 qezy=984) CBC W/PLT COUNT & AUTO [id number] 05:24:00 Test Item Value Reference Range Comments WHITE BLOOD CELL COUNT (BEAKER) (test kwbi=611) 13.0 K/ L 3.5-10.5 RED BLOOD CELL COUNT (BEAKER) (test ohef=910) 3.04 M/ L 3.93-5.22 HEMOGLOBIN (BEAKER) (test gwzj=058) 9.0 GM/DL 11.2-15.7 HEMATOCRIT (BEAKER) (test rgsr=213) 29.0 % 34.1-44.9 MEAN CORPUSCULAR VOLUME (BEAKER) (test pjve=350) 95.4 fL 79.4-94.8 MEAN CORPUSCULAR HEMOGLOBIN (BEAKER) (test 29.6 pg 25.6-32.2 rrqe=526) MEAN CORPUSCULAR HEMOGLOBIN CONC (BEAKER) (test 31.0 GM/DL 32.2-35.5 sdzk=039) RED CELL DISTRIBUTION WIDTH (BEAKER) (test 15.5 % 11.7-14.4 lryk=964) PLATELET COUNT (BEAKER) (test qlyj=201) 132 K/CU MM 150-450 MEAN PLATELET VOLUME (BEAKER) (test lizm=614) 11.4 fL 9.4-12.3 NUCLEATED RED BLOOD CELLS (BEAKER) (test 0 /100 WBC 0-0 dxzq=002) NEUTROPHILS RELATIVE PERCENT (BEAKER) (test 80 % sgco=208) LYMPHOCYTES RELATIVE PERCENT (BEAKER) (test 10 % mrsm=475) MONOCYTES RELATIVE PERCENT (BEAKER) (test 9 % npcf=870) EOSINOPHILS RELATIVE PERCENT (BEAKER) (test 0 % viol=016) BASOPHILS RELATIVE PERCENT (BEAKER) (test 0 % mqzk=872) NEUTROPHILS ABSOLUTE COUNT (BEAKER) (test 10.44 K/ L 1.56-6.13 pdhj=264) LYMPHOCYTES ABSOLUTE COUNT (BEAKER) (test 1.29 K/ L 1.18-3.74 sjvv=914) MONOCYTES ABSOLUTE COUNT (BEAKER) (test 1.12 K/ L 0.24-0.36 ynxe=208) EOSINOPHILS ABSOLUTE COUNT (BEAKER) (test 0.01 K/ L 0.04-0.36 tryh=020) BASOPHILS ABSOLUTE COUNT (BEAKER) (test 0.04 K/ L 0.01-0.08 lsbv=943) IMMATURE GRANULOCYTES-RELATIVE PERCENT (BEAKER) 1 % 0-1 (test oidx=7894) RAD, CHEST, 1 VIEW, NON [id number] 04:45:00Reason for exam:->respiratory insufficiencyFINAL REPORT CLINICAL INDICATION: Respiratory insufficiency Comparison: 07/21/2017 The cardiomediastinal contours are stable. The left hemidiaphragm is slightly elevated. Centralpulmonary vascular congestion and bilateral parenchymal opacities are unchanged. There is no pneumothorax. A femoral Impella device remains in place. Signed: Adelso Sorensenort Verified Date/Time:07/22/2017 04:45:12 Reading Location: [address] Reading Room POCT-GLUCOSE [id number] 03:01:00 Test Item Value Reference Range Comments POC-GLUCOSE METER (BEAKER) 115 mg/dL 70-110 TESTED AT [address] (test hvqg=7872) [facility] [address] POCT-GLUCOSE [id number] 00:14:00 Test Item Value Reference Range Comments POC-GLUCOSE METER (BEAKER) 137 mg/dL 70-110 TESTED AT [address] (test foge=1730) [place] [id number] 00:09:00 Test Item Value Reference Range Comments POTASSIUM (BEAKER) (test icjg=925) 3.8 meq/L 3.5-5.1 PRN - repeat glucose levels every 1 hour or as specified by insulin titration orders until glucose level is less than 450 mg/dLCheck Serum Potassium level 2 hours after oral potassium replacement completed or 30 min after intravenous potassium replacement.[id number] 00:09:00 Test Item Value Reference Range Comments MAGNESIUM (BEAKER) (test ebus=800) 2.5 mg/dL 1.6-2.6 PRN - repeat glucose levels every 1 hour or as specified by insulin titration orders until glucose level is less than 450 mg/dLCheck Serum Potassium level 2 hours after oral potassium replacement completed or 30 min after intravenous potassium replacement.[id number] 00:09:00 Test Item Value Reference Range Comments PHOSPHORUS (BEAKER) (test imhr=451) 1.9 mg/dL 2.3-4.7 PRN - repeat glucose levels every 1 hour or as specified by insulin titration orders until glucose level is less than 450 mg/dLCheck Serum Potassium level 2 hours after oral potassium replacement completed or 30 min after intravenous potassium replacement.[id number] 00:09:00 Test Item Value Reference Range Comments GLUCOSE RANDOM (BEAKER) (test xmfg=859) 155 mg/dL 70-105 PRN - repeat glucose levels every 1 hour or as specified by insulin titration orders until glucose level is less than 450 mg/dLCheck Serum Potassium level 2 hours after oral potassium replacement completed or 30 min after intravenous potassium replacement.BASIC METABOLIC [id number] 00:09:00 Test Item Value Reference Range Comments SODIUM (BEAKER) (test 142 meq/L 136-145 eccq=320) POTASSIUM (BEAKER) (test 3.8 meq/L 3.5-5.1 onwg=829) CHLORIDE (BEAKER) (test 105 meq/L 98-107 fdsh=975) CO2 (BEAKER) (test 30 meq/L 22-29 oogg=271) BLOOD UREA NITROGEN 37 mg/dL 7-21 (BEAKER) (test wpnd=667) CREATININE (BEAKER) (test 1.80 mg/dL 0.57-1.25 utbp=282) GLUCOSE RANDOM (BEAKER) 155 mg/dL 70-105 (test ehyz=889) CALCIUM (BEAKER) (test 8.8 mg/dL 8.4-10.2 wiox=625) EGFR (BEAKER) (test 34 mL/min/1.73 sq m ESTIMATED GFR IS NOT rgkd=2744) ACCURATE CREATININE CLEARANCE IN PREDICTING GLOMERULAR FILTRATION RATE. ESTIMATED GFR IS NOT APPLICABLE FOR DIALYSIS PATIENTS. PRN - repeat glucose levels every 1 hour or as specified by insulin titration orders until glucose level is less than 450 mg/dLCheck Serum Potassium level 2 hours after oral potassium replacement completed or 30 min after intravenous potassium replacement.[id number] 00:06:00 Test Item Value Reference Range Comments PARTIAL THROMBOPLASTIN TIME (BEAKER) (test 62.0 seconds 22.5-36.0 sphx=368) BLOOD GAS, [id number] 20:39:00 Test Item Value Reference Range Comments PH ARTERIAL (BEAKER) (test lwam=561) 7.45 7.35-7.45 PCO2 ARTERIAL (BEAKER) (test jrit=175) 46 mmHg 35-45 PO2 ARTERIAL (BEAKER) (test uhdv=729) 64 mmHg 80-90 O2 SATURATION ARTERIAL (BEAKER) (test kxzd=781) 92.0 % 96.0-97.0 HCO3 ARTERIAL (BEAKER) (test nsmd=794) 31 mmol/L 21-29 BASE EXCESS ARTERIAL (BEAKER) (test fmgr=190) 6.7 mmol/L -2.0-3.0 PATIENT TEMPERATURE (BEAKER) (test jrac=5508) 38.1 C FIO2 (BEAKER) (test vplg=9030) 80.0 % POTASSIUM-STAT [id number] 20:39:00 Test Item Value Reference Range Comments POTASSIUM (BEAKER) (test vtog=276) 3.4 meq/L 3.6-5.5 [id number] 20:16:00 Test Item Value Reference Range Comments FERRITIN (BEAKER) (test xdql=551) 651 ng/mL 5-275 POCT-GLUCOSE [id number] 20:10:00 Test Item Value Reference Range Comments POC-GLUCOSE METER (BEAKER) 180 mg/dL 70-110 TESTED AT [facility] [address] [facility] (test mwuh=8298) [facility] [address] POCT-GLUCOSE [id number] 20:10:00 Test Item Value Reference Range Comments POC-GLUCOSE METER (BEAKER) 197 mg/dL 70-110 TESTED AT [facility] [address] [facility] (test fugi=8884) [facility] [address] [id number] 19:54:00 Test Item Value Reference Range Comments PARTIAL THROMBOPLASTIN TIME (BEAKER) (test 62.4 seconds 22.5-36.0 quii=204) [id number] 19:53:00 Test Item Value Reference Range Comments MAGNESIUM (BEAKER) (test hptu=604) 2.2 mg/dL 1.6-2.6 HEPATITIS A ANTIBODY, [id number] 19:25:00 Test Item Value Reference Range Comments HEPATITIS A IGG ANTIBODY (BEAKER) (test wynl=2081) Reactive Nonreactive GLUCOSE-STAT [id number] 19:24:00 Test Item Value Reference Range Comments GLUCOSE RANDOM (BEAKER) (test kfxp=931) 174 mg/dL 70-110 HGB/HCT (H&H) - STAT [id number] 19:24:00 Test Item Value Reference Range Comments HEMOGLOBIN (BEAKER) (test jhwk=236) 10.1 g/dL 12.0-15.0 HEMATOCRIT (BEAKER) (test vsxb=724) 30.0 % 36.0-45.0 POTASSIUM-STAT [id number] 19:24:00 Test Item Value Reference Range Comments POTASSIUM (BEAKER) (test aqoh=339) 3.4 meq/L 3.6-5.5 HEPATITIS B CORE ANTIBODY, [id number] 19:21:00 Test Item Value Reference Range Comments HEPATITIS B CORE TOTAL ANTIBODY (BEAKER) (test Nonreactive Nonreactive ofqj=152) HEPATITIS PANEL, [id number] 19:21:00 Test Item Value Reference Range Comments HEPATITIS A IGM ANTIBODY (BEAKER) (test Nonreactive Nonreactive vcxy=644) HEPATITIS B CORE IGM ANTIBODY (BEAKER) (test Nonreactive Nonreactive kmet=284) HEPATITIS C ANTIBODY (BEAKER) (test rcil=123) Nonreactive Nonreactive HEPATITIS B SURFACE ANTIGEN (2) (BEAKER) (test Nonreactive Nonreactive bcxs=9162) HIV-1 ANTIGEN WITH HIV-1/2 [id number] 19:21:00 Test Item Value Reference Range Comments HIV-1 ANTIGEN WITH HIV 1\T\2 ANTIBODY (2) Nonreactive Nonreactive (BEAKER) (test ayim=0925) BASIC METABOLIC [id number] 18:05:00 Test Item Value Reference Range Comments SODIUM (BEAKER) (test 141 meq/L 136-145 ffip=090) POTASSIUM (BEAKER) (test 4.0 meq/L 3.5-5.1 kvre=502) CHLORIDE (BEAKER) (test 104 meq/L 98-107 byql=118) CO2 (BEAKER) (test 26 meq/L 22-29 skvk=690) BLOOD UREA NITROGEN 41 mg/dL 7-21 (BEAKER) (test gitt=550) CREATININE (BEAKER) (test 2.07 mg/dL 0.57-1.25 ukzz=724) GLUCOSE RANDOM (BEAKER) 242 mg/dL 70-105 (test nvwx=781) CALCIUM (BEAKER) (test 8.9 mg/dL 8.4-10.2 qbvb=279) EGFR (BEAKER) (test 29 mL/min/1.73 sq m ESTIMATED GFR IS NOT ktju=6530) ACCURATE CREATININE CLEARANCE IN PREDICTING GLOMERULAR FILTRATION RATE. ESTIMATED GFR IS NOT APPLICABLE FOR DIALYSIS PATIENTS. Check Serum Potassium level 2 hours after oral potassium replacement completed or 30 min after intravenous potassium replacement.[id number] 18:02:00 Test Item Value Reference Range Comments POTASSIUM (BEAKER) (test tvaa=233) 4.0 meq/L 3.5-5.1 Check Serum Potassium level 2 hours after oral potassium replacement completed or 30 min after intravenous potassium replacement.[id number] 18:02:00 Test Item Value Reference Range Comments MAGNESIUM (BEAKER) (test bbdl=755) 2.2 mg/dL 1.6-2.6 Check Serum Potassium level 2 hours after oral potassium replacement completed or 30 min after intravenous potassium replacement.[id number] 18:02:00 Test Item Value Reference Range Comments PHOSPHORUS (BEAKER) (test ghtb=650) 2.1 mg/dL 2.3-4.7 Check Serum Potassium level 2 hours after oral potassium replacement completed or 30 min after intravenous potassium replacement.POCT-GLUCOSE [id number] 17:31:00 Test Item Value Reference Range Comments POC-GLUCOSE METER (BEAKER) 253 mg/dL 70-110 TESTED AT [address] (test mgoj=3340) [place] [address] VITAMIN D, [id number] 17:31:00 Test Item Value Reference Range Comments VITAMIN D 25-OH (BEAKER) (test wkgt=8466) 5.8 ng/mL 6.6-49.9 Effective 01/12/2017: Reference Range ChangeNew: 6.6-49.9 ng/mL Previous: 13.0 -47.8 ng/mLRecommended Vitamin D Target Range: 30.0-40.0 ng/mLPOCT-GLUCOSE [id number] 17:31:00 Test Item Value Reference Range Comments POC-GLUCOSE METER (BEAKER) 269 mg/dL 70-110 TESTED AT [address] (test pjxt=5094) [place] [address] [id number] 17:09:00 Test Item Value Reference Range Comments TRANSFERRIN (BEAKER) (test wtkk=853) 166 mg/dL 174-382 [id number] 17:09:00 Test Item Value Reference Range Comments PREALBUMIN (BEAKER) (test yaqy=767) 14 mg/dL 14-45 IRON, [id number] 17:09:00 Test Item Value Reference Range Comments IRON (BEAKER) (test rdus=044) 57 ug/dL 40-160 TROPONIN [id number] 16:59:00 Test Item Value Reference Range Comments TROPONIN I (BEAKER) (test qiei=466) 45.70 ng/mL 0.00-0.03 Troponin I (TnI) levels [...] failure, acidosis, acute neurological disease, and persistent tachyarrhythmia.[id number] 16:49:00 Test Item Value Reference Range Comments CREATININE (BEAKER) (test 2.17 mg/dL 0.57-1.25 zcla=746) EGFR (BEAKER) (test 27 mL/min/1.73 sq m ESTIMATED GFR IS NOT ztlh=5914) ACCURATE CREATININE CLEARANCE IN PREDICTING GLOMERULAR FILTRATION RATE. ESTIMATED GFR IS NOT APPLICABLE FOR DIALYSIS PATIENTS. URIC [id number] 16:48:00 Test Item Value Reference Range Comments URIC ACID (BEAKER) (test vbeu=735) 8.2 mg/dL 2.6-7.2 LIPID [id number] 16:48:00 Test Item Value Reference Range Comments TRIGLYCERIDES (BEAKER) (test eqmd=700) 122 mg/dL CHOLESTEROL (BEAKER) (test cqki=415) 204 mg/dL HDL CHOLESTEROL (BEAKER) (test rimz=386) 85 mg/dL LDL CHOLESTEROL CALCULATED (BEAKER) (test 95 mg/dL cmnh=674) Triglyceride Reference Range: Low Risk <150 Borderline 150- 199 High Risk 200-499 Very High Risk >=500Cholesterol Reference Range: Low Risk <200 Borderline 200-239 High Risk > 240HDL Cholesterol Reference Range: Low Risk >=60 High Risk <40LDL Cholesterol Reference Range: Optimal <100 Near Optimal 100-129 Borderline 130-159 High 160-189 Very High >=[id number] 16:48:00 Test Item Value Reference Range Comments AMYLASE (BEAKER) (test xdif=683) 228 U/L 25-125 GAMMA GLUTAMYL TRANSFERASE (GGT)2017-07-21 16:48:00 Test Item Value Reference Range Comments GAMMA GLUTAMYL TRANSFERASE (BEAKER) (test xaip=236) 52 U/L 9-64 RETICULOCYTE [id number] 16:39:00 Test Item Value Reference Range Comments RETICULOCYTE COUNT PCT (BEAKER) (test cgnx=618) 3.8 % 0.5-1.7 TROPONIN [id number] 13:49:00 Test Item Value Reference Range Comments TROPONIN I (BEAKER) (test ewyn=159) 43.19 ng/mL 0.00-0.03 Troponin I (TnI) levels [...] acute neurological disease, and persistent tachyarrhythmia.BASIC METABOLIC [id number] 12:22:00 Test Item Value Reference Range Comments SODIUM (BEAKER) (test 141 meq/L 136-145 szzx=447) POTASSIUM (BEAKER) (test 3.9 meq/L 3.5-5.1 azaj=498) CHLORIDE (BEAKER) (test 102 meq/L 98-107 scug=281) CO2 (BEAKER) (test 28 meq/L 22-29 kghs=282) BLOOD UREA NITROGEN 40 mg/dL 7-21 (BEAKER) (test qzqb=911) CREATININE (BEAKER) (test 2.20 mg/dL 0.57-1.25 ydqh=018) GLUCOSE RANDOM (BEAKER) 238 mg/dL 70-105 (test anwb=788) CALCIUM (BEAKER) (test 8.9 mg/dL 8.4-10.2 wybr=487) EGFR (BEAKER) (test 27 mL/min/1.73 sq m ESTIMATED GFR IS NOT bmpy=7297) ACCURATE CREATININE CLEARANCE IN PREDICTING GLOMERULAR FILTRATION RATE. ESTIMATED GFR IS NOT APPLICABLE FOR DIALYSIS PATIENTS. [id number] 12:17:00 Test Item Value Reference Range Comments POTASSIUM (BEAKER) (test xagx=890) 3.9 meq/L 3.5-5.1 [id number] 12:17:00 Test Item Value Reference Range Comments MAGNESIUM (BEAKER) (test acxb=706) 2.4 mg/dL 1.6-2.6 [id number] 12:17:00 Test Item Value Reference Range Comments PHOSPHORUS (BEAKER) (test xsge=211) 3.7 mg/dL 2.3-4.7 [id number] 12:17:00 Test Item Value Reference Range Comments GLUCOSE RANDOM (BEAKER) (test tcuh=708) 238 mg/dL 70-105 [id number] 12:04:00 Test Item Value Reference Range Comments PARTIAL THROMBOPLASTIN TIME (BEAKER) (test 59.3 seconds 22.5-36.0 sjyh=595) SPUTUM CULTURE + GRAM [id number] 11:47:00 Test Item Value Reference Range Comments CULTURE (BEAKER) (test <1+ Normal respiratory pascual wszk=8246) present GRAM STAIN RESULT (BEAKER) 1+ WBCs (test nvpg=7772) GRAM STAIN RESULT (BEAKER) 0-5 epithelial cells (test oadd=68203) GRAM STAIN RESULT (BEAKER) No organisms seen (test yisd=47224) HEMOGLOBIN AND [id number] 11:26:00 Test Item Value Reference Range Comments HEMOGLOBIN (BEAKER) (test lauw=109) 7.9 GM/DL 11.2-15.7 HEMATOCRIT (BEAKER) (test http=955) 26.5 % 34.1-44.9 BLOOD GAS, [id number] 10:43:00 Test Item Value Reference Range Comments PH ARTERIAL (BEAKER) (test dcza=761) 7.42 7.35-7.45 PCO2 ARTERIAL (BEAKER) (test xuye=506) 44 mmHg 35-45 PO2 ARTERIAL (BEAKER) (test lxwq=781) 51 mmHg 80-90 O2 SATURATION ARTERIAL (BEAKER) (test umea=035) 88.2 % 96.0-97.0 HCO3 ARTERIAL (BEAKER) (test ezdy=113) 28 mmol/L 21-29 BASE EXCESS ARTERIAL (BEAKER) (test jnmj=527) 3.2 mmol/L -2.0-3.0 PATIENT TEMPERATURE (BEAKER) (test ljxn=5083) 36.0 C FIO2 (BEAKER) (test tcpb=9606) 80.0 % URINE [id number] 09:44:00 Test Item Value Reference Range Comments CULTURE (BEAKER) (test qsez=6354) No growth BASIC METABOLIC [id number] 06:28:00 Test Item Value Reference Range Comments SODIUM (BEAKER) (test 141 meq/L 136-145 qdar=186) POTASSIUM (BEAKER) (test 4.1 meq/L 3.5-5.1 zkvc=045) CHLORIDE (BEAKER) (test 101 meq/L 98-107 vhcy=719) CO2 (BEAKER) (test 29 meq/L 22-29 oema=180) BLOOD UREA NITROGEN 40 mg/dL 7-21 (BEAKER) (test okjy=561) CREATININE (BEAKER) (test 2.46 mg/dL 0.57-1.25 cgub=720) GLUCOSE RANDOM (BEAKER) 236 mg/dL 70-105 (test mgca=906) CALCIUM (BEAKER) (test 8.6 mg/dL 8.4-10.2 aqns=142) EGFR (BEAKER) (test 24 mL/min/1.73 sq m ESTIMATED GFR IS NOT jksx=1676) ACCURATE CREATININE CLEARANCE IN PREDICTING GLOMERULAR FILTRATION RATE. ESTIMATED GFR IS NOT APPLICABLE FOR DIALYSIS PATIENTS. [id number] 06:26:00 Test Item Value Reference Range Comments PHOSPHORUS (BEAKER) (test nseg=551) 4.6 mg/dL 2.3-4.7 POCT-GLUCOSE [id number] 06:05:00 Test Item Value Reference Range Comments POC-GLUCOSE METER (BEAKER) 278 mg/dL 70-110 TESTED AT [address] (test brdh=9000) [place] [id number] POCT-GLUCOSE [id number] 06:05:00 Test Item Value Reference Range Comments POC-GLUCOSE METER (BEAKER) 231 mg/dL 70-110 TESTED AT [address] (test iszd=2957) [place] [id number] POCT-GLUCOSE [id number] 06:05:00 Test Item Value Reference Range Comments POC-GLUCOSE METER (BEAKER) 190 mg/dL 70-110 TESTED AT [address] (test rsbh=7746) [place] [address] [id number] 05:56:00 Test Item Value Reference Range Comments PARTIAL THROMBOPLASTIN TIME (BEAKER) (test 72.5 seconds 22.5-36.0 gxxf=731) RAD, CHEST, 1 VIEW, NON [id number] 04:38:00Reason for exam:->respiratory insufficiencyFINAL REPORT CLINICAL INDICATION: Respiratory insufficiency Comparison: 07/20/2017 The cardiomediastinal contours are stable. Central pulmonary vascular prominence and bilateral parenchymal opacities are similar within variation of acquisition technique. There is no pneumothorax. A femoral Impella device is stable in position. Signed: Adelso Sorensen MDReport Verified Date/Time:07/21/2017 04:38:32 Reading Location: [address] Reading Room BASIC METABOLIC [id number] 04:06:00 Test Item Value Reference Range Comments SODIUM (BEAKER) (test 142 meq/L 136-145 wycq=706) POTASSIUM (BEAKER) (test 3.9 meq/L 3.5-5.1 etbw=279) CHLORIDE (BEAKER) (test 102 meq/L 98-107 ggsx=401) CO2 (BEAKER) (test 31 meq/L 22-29 jvqk=963) BLOOD UREA NITROGEN 40 mg/dL 7-21 (BEAKER) (test wosa=789) CREATININE (BEAKER) (test 2.37 mg/dL 0.57-1.25 gnxc=860) GLUCOSE RANDOM (BEAKER) 206 mg/dL 70-105 (test tgju=243) CALCIUM (BEAKER) (test 8.5 mg/dL 8.4-10.2 shin=233) EGFR (BEAKER) (test 25 mL/min/1.73 sq m ESTIMATED GFR IS NOT itxl=6479) ACCURATE CREATININE CLEARANCE IN PREDICTING GLOMERULAR FILTRATION RATE. ESTIMATED GFR IS NOT APPLICABLE FOR DIALYSIS PATIENTS. BLOOD GAS, [id number] 03:53:00 Test Item Value Reference Range Comments PH ARTERIAL (BEAKER) (test sbyo=698) 7.36 7.35-7.45 PCO2 ARTERIAL (BEAKER) (test luee=695) 55 mmHg 35-45 PO2 ARTERIAL (BEAKER) (test askc=304) 94 mmHg 80-90 O2 SATURATION ARTERIAL (BEAKER) (test ptmt=096) 96.0 % 96.0-97.0 HCO3 ARTERIAL (BEAKER) (test whbb=766) 30 mmol/L 21-29 BASE EXCESS ARTERIAL (BEAKER) (test bybg=823) 4.2 mmol/L -2.0-3.0 PATIENT TEMPERATURE (BEAKER) (test yfoq=8471) 38.8 C FIO2 (BEAKER) (test ydyz=5091) 80.0 % CALCIUM, [id number] 03:51:00 Test Item Value Reference Range Comments CALCIUM IONIZED (BEAKER) (test zpwd=674) 1.07 mmol/L 1.12-1.27 PH, BLOOD (BEAKER) (test qnbb=9946) 7.35 OXYGEN SATURATION, [id number] 03:50:00 Test Item Value Reference Range Comments O2 SATURATION (MEASURED) (BEAKER) (test dthv=5270) 72.6 % [id number] 03:47:00 Test Item Value Reference Range Comments PHOSPHORUS (BEAKER) (test ypsj=597) 4.5 mg/dL 2.3-4.7 [id number] 03:47:00 Test Item Value Reference Range Comments MAGNESIUM (BEAKER) (test jiex=895) 2.1 mg/dL 1.6-2.6 HEPATIC FUNCTION [id number] 03:47:00 Test Item Value Reference Range Comments TOTAL PROTEIN (BEAKER) (test slmx=937) 6.1 gm/dL 6.0-8.3 ALBUMIN (BEAKER) (test ejpv=0389) 3.1 g/dL 3.5-5.0 BILIRUBIN TOTAL (BEAKER) (test ociy=794) 1.4 mg/dL 0.2-1.2 BILIRUBIN DIRECT (BEAKER) (test fsxp=548) 0.6 mg/dL 0.1-0.5 ALKALINE PHOSPHATASE (BEAKER) (test ycbd=548) 45 U/L 40-150 AST (SGOT) (BEAKER) (test ovoh=377) 94 U/L 5-34 ALT (SGPT) (BEAKER) (test laoc=829) 48 U/L 6-55 LACTATE DEHYDROGENASE (LDH)2017-07-21 03:47:00 Test Item Value Reference Range Comments LACTATE DEHYDROGENASE (BEAKER) (test cizp=592) 1470 U/L 125-220 CBC W/PLT COUNT & AUTO [id number] 03:41:00 Test Item Value Reference Range Comments WHITE BLOOD CELL COUNT (BEAKER) (test diun=679) 14.1 K/ L 3.5-10.5 RED BLOOD CELL COUNT (BEAKER) (test uyan=269) 2.81 M/ L 3.93-5.22 HEMOGLOBIN (BEAKER) (test yhkf=370) 8.6 GM/DL 11.2-15.7 HEMATOCRIT (BEAKER) (test txqs=234) 28.2 % 34.1-44.9 MEAN CORPUSCULAR VOLUME (BEAKER) (test ysbc=775) 100.4 fL 79.4-94.8 MEAN CORPUSCULAR HEMOGLOBIN (BEAKER) (test 30.6 pg 25.6-32.2 qqoo=521) MEAN CORPUSCULAR HEMOGLOBIN CONC (BEAKER) (test 30.5 GM/DL 32.2-35.5 yoax=144) RED CELL DISTRIBUTION WIDTH (BEAKER) (test 13.1 % 11.7-14.4 jssm=992) PLATELET COUNT (BEAKER) (test grww=663) 140 K/CU MM 150-450 MEAN PLATELET VOLUME (BEAKER) (test jqvm=781) 11.1 fL 9.4-12.3 NUCLEATED RED BLOOD CELLS (BEAKER) (test 0 /100 WBC 0-0 xhcx=140) NEUTROPHILS RELATIVE PERCENT (BEAKER) (test 86 % uktv=140) LYMPHOCYTES RELATIVE PERCENT (BEAKER) (test 6 % ghfv=907) MONOCYTES RELATIVE PERCENT (BEAKER) (test 8 % qkdw=324) EOSINOPHILS RELATIVE PERCENT (BEAKER) (test 0 % vxet=176) BASOPHILS RELATIVE PERCENT (BEAKER) (test 0 % bnwn=160) NEUTROPHILS ABSOLUTE COUNT (BEAKER) (test 12.13 K/ L 1.56-6.13 gttm=868) LYMPHOCYTES ABSOLUTE COUNT (BEAKER) (test 0.81 K/ L 1.18-3.74 jqwg=306) MONOCYTES ABSOLUTE COUNT (BEAKER) (test 1.07 K/ L 0.24-0.36 ykok=816) EOSINOPHILS ABSOLUTE COUNT (BEAKER) (test 0.00 K/ L 0.04-0.36 tlet=390) BASOPHILS ABSOLUTE COUNT (BEAKER) (test 0.02 K/ L 0.01-0.08 elka=403) IMMATURE GRANULOCYTES-RELATIVE PERCENT (BEAKER) 1 % 0-1 (test oioi=7048) LACTIC ACID, ARTERIAL, WHOLE [id number] 03:39:00 Test Item Value Reference Range Comments LACTATE BLOOD ARTERIAL (2) (BEAKER) (test 0.9 mmol/L 0.5-2.2 zgfi=7959) Effective 08/06/2015: Units/Reference Range ChangeNew: 0.5-2.2 mmol/L Previous: 5 -20 mg/dLTROPONIN [id number] 00:12:00 Test Item Value Reference Range Comments TROPONIN I (BEAKER) (test tbgc=507) 60.74 ng/mL 0.00-0.03 Troponin I (TnI) levels [...] failure, acidosis, acute neurological disease, and persistent tachyarrhythmia.[id number] 23:42:00 Test Item Value Reference Range Comments PHOSPHORUS (BEAKER) (test xrqs=908) 4.9 mg/dL 2.3-4.7 BASIC METABOLIC [id number] 23:42:00 Test Item Value Reference Range Comments SODIUM (BEAKER) (test 141 meq/L 136-145 xtje=693) POTASSIUM (BEAKER) (test 4.2 meq/L 3.5-5.1 gsjk=424) CHLORIDE (BEAKER) (test 102 meq/L 98-107 mfjs=630) CO2 (BEAKER) (test 29 meq/L 22-29 imgz=597) BLOOD UREA NITROGEN 40 mg/dL 7-21 (BEAKER) (test ainy=105) CREATININE (BEAKER) (test 2.36 mg/dL 0.57-1.25 lnoy=559) GLUCOSE RANDOM (BEAKER) 200 mg/dL 70-105 (test jfhe=259) CALCIUM (BEAKER) (test 8.4 mg/dL 8.4-10.2 pwpc=470) EGFR (BEAKER) (test 25 mL/min/1.73 sq m ESTIMATED GFR IS NOT sckk=3638) ACCURATE CREATININE CLEARANCE IN PREDICTING GLOMERULAR FILTRATION RATE. ESTIMATED GFR IS NOT APPLICABLE FOR DIALYSIS PATIENTS. [id number] 23:39:00 Test Item Value Reference Range Comments PARTIAL THROMBOPLASTIN TIME (BEAKER) (test 78.1 seconds 22.5-36.0 hjib=517) POCT-GLUCOSE [id number] 23:28:00 Test Item Value Reference Range Comments POC-GLUCOSE METER (BEAKER) 250 mg/dL 70-110 TESTED AT [facility] [address] [facility] (test ocpu=2934) [facility] [id number] POCT-GLUCOSE [id number] 22:19:00 Test Item Value Reference Range Comments POC-GLUCOSE METER (BEAKER) 202 mg/dL 70-110 TESTED AT [address] (test vqqi=4459) [facility] [id number] HEPATIC FUNCTION [id number] 21:45:00 Test Item Value Reference Range Comments TOTAL PROTEIN (BEAKER) (test cudd=147) 5.9 gm/dL 6.0-8.3 ALBUMIN (BEAKER) (test lggt=8068) 3.1 g/dL 3.5-5.0 BILIRUBIN TOTAL (BEAKER) (test loko=754) 1.0 mg/dL 0.2-1.2 BILIRUBIN DIRECT (BEAKER) (test rumv=221) 0.5 mg/dL 0.1-0.5 ALKALINE PHOSPHATASE (BEAKER) (test jeyi=318) 46 U/L 40-150 AST (SGOT) (BEAKER) (test fdpk=596) 95 U/L 5-34 ALT (SGPT) (BEAKER) (test ojwk=864) 47 U/L 6-55 BASIC METABOLIC [id number] 21:45:00 Test Item Value Reference Range Comments SODIUM (BEAKER) (test 141 meq/L 136-145 hyss=521) POTASSIUM (BEAKER) (test 4.0 meq/L 3.5-5.1 lmfs=261) CHLORIDE (BEAKER) (test 103 meq/L 98-107 gmng=494) CO2 (BEAKER) (test 27 meq/L 22-29 dkmr=846) BLOOD UREA NITROGEN 40 mg/dL 7-21 (BEAKER) (test zhfu=900) CREATININE (BEAKER) (test 2.30 mg/dL 0.57-1.25 rbbd=033) GLUCOSE RANDOM (BEAKER) 192 mg/dL 70-105 (test elgu=655) CALCIUM (BEAKER) (test 8.4 mg/dL 8.4-10.2 rasl=792) EGFR (BEAKER) (test 25 mL/min/1.73 sq m ESTIMATED GFR IS NOT sbsx=6242) ACCURATE CREATININE CLEARANCE IN PREDICTING GLOMERULAR FILTRATION RATE. ESTIMATED GFR IS NOT APPLICABLE FOR DIALYSIS PATIENTS. [id number] 21:38:00 Test Item Value Reference Range Comments MAGNESIUM (BEAKER) (test kagd=251) 2.1 mg/dL 1.6-2.6 LACTIC ACID, ARTERIAL, WHOLE [id number] 21:32:00 Test Item Value Reference Range Comments LACTATE BLOOD ARTERIAL (2) (BEAKER) (test 0.6 mmol/L 0.5-2.2 zrsc=3855) Effective 08/06/2015: Units/Reference Range ChangeNew: 0.5-2.2 mmol/L Previous: 5 -20 mg/dLPOCT-GLUCOSE [id number] 21:21:00 Test Item Value Reference Range Comments POC-GLUCOSE METER (BEAKER) 198 mg/dL 70-110 TESTED AT [address] (test tnrf=4949) [facility] [address] POCT-GLUCOSE [id number] 21:21:00 Test Item Value Reference Range Comments POC-GLUCOSE METER (BEAKER) 155 mg/dL 70-110 TESTED AT [address] (test jssy=0555) [facility] [address] POCT-GLUCOSE [id number] 21:21:00 Test Item Value Reference Range Comments POC-GLUCOSE METER (BEAKER) 67 mg/dL 70-110 TESTED AT [address] (test xrjs=6428) [facility] [address] BLOOD GAS, [id number] 21:16:00 Test Item Value Reference Range Comments PH ARTERIAL (BEAKER) (test cfoe=203) 7.34 7.35-7.45 PCO2 ARTERIAL (BEAKER) (test cswj=684) 56 mmHg 35-45 PO2 ARTERIAL (BEAKER) (test mpqc=463) 107 mmHg 80-90 O2 SATURATION ARTERIAL (BEAKER) (test colm=346) 97.3 % 96.0-97.0 HCO3 ARTERIAL (BEAKER) (test hswz=469) 29 mmol/L 21-29 BASE EXCESS ARTERIAL (BEAKER) (test qvzq=559) 2.7 mmol/L -2.0-3.0 PATIENT TEMPERATURE (BEAKER) (test kvkz=4897) 37.8 C FIO2 (BEAKER) (test aqux=7734) 100.0 % GLUCOSE-STAT [id number] 21:16:00 Test Item Value Reference Range Comments GLUCOSE RANDOM (BEAKER) (test yvue=524) 188 mg/dL 70-110 HGB/HCT (H&H) - STAT [id number] 21:16:00 Test Item Value Reference Range Comments HEMOGLOBIN (BEAKER) (test ekzv=454) 9.9 g/dL 12.0-15.0 HEMATOCRIT (BEAKER) (test ylww=794) 29.0 % 36.0-45.0 SODIUM NA-STAT [id number] 21:15:00 Test Item Value Reference Range Comments SODIUM (BEAKER) (test mvup=432) 140 meq/L 135-148 POTASSIUM-STAT [id number] 21:15:00 Test Item Value Reference Range Comments POTASSIUM (BEAKER) (test ewex=855) 3.9 meq/L 3.6-5.5 BLOOD GAS, [id number] 19:44:00 Test Item Value Reference Range Comments PH ARTERIAL (BEAKER) (test mjdw=864) 7.34 7.35-7.45 PCO2 ARTERIAL (BEAKER) (test ffmk=681) 31 mmHg 35-45 PO2 ARTERIAL (BEAKER) (test inro=878) 68 mmHg 80-90 O2 SATURATION ARTERIAL (BEAKER) (test rgjl=398) 92.1 % 96.0-97.0 HCO3 ARTERIAL (BEAKER) (test rlse=703) 16 mmol/L 21-29 BASE EXCESS ARTERIAL (BEAKER) (test kbed=224) -8.7 mmol/L -2.0-3.0 PATIENT TEMPERATURE (BEAKER) (test nihq=5375) 37.7 C FIO2 (BEAKER) (test pmxa=6200) 50.0 % POCT-GLUCOSE [id number] 18:30:00 Test Item Value Reference Range Comments POC-GLUCOSE METER (BEAKER) 90 mg/dL 70-110 TESTED AT [facility] [address] [facility] (test ukoo=9955) [place] [address] TROPONIN [id number] 18:05:00 Test Item Value Reference Range Comments TROPONIN I (BEAKER) (test nfbx=024) 76.69 ng/mL 0.00-0.03 Troponin I (TnI) levels [...] acute neurological disease, and persistent tachyarrhythmia.BASIC METABOLIC [id number] 17:56:00 Test Item Value Reference Range Comments SODIUM (BEAKER) (test 143 meq/L 136-145 bcag=047) POTASSIUM (BEAKER) (test 3.8 meq/L 3.5-5.1 fajo=753) CHLORIDE (BEAKER) (test 104 meq/L 98-107 ijxp=719) CO2 (BEAKER) (test 29 meq/L 22-29 omel=235) BLOOD UREA NITROGEN 37 mg/dL 7-21 (BEAKER) (test jlkk=546) CREATININE (BEAKER) (test 2.45 mg/dL 0.57-1.25 jjna=380) GLUCOSE RANDOM (BEAKER) 107 mg/dL 70-105 (test vcco=755) CALCIUM (BEAKER) (test 8.6 mg/dL 8.4-10.2 qlzs=013) EGFR (BEAKER) (test 24 mL/min/1.73 sq m ESTIMATED GFR IS NOT jdsc=5323) ACCURATE CREATININE CLEARANCE IN PREDICTING GLOMERULAR FILTRATION RATE. ESTIMATED GFR IS NOT APPLICABLE FOR DIALYSIS PATIENTS. [id number] 17:43:00 Test Item Value Reference Range Comments PHOSPHORUS (BEAKER) (test idxd=777) 4.8 mg/dL 2.3-4.7 [id number] 17:43:00 Test Item Value Reference Range Comments MAGNESIUM (BEAKER) (test wlvc=198) 2.4 mg/dL 1.6-2.6 [id number] 17:34:00 Test Item Value Reference Range Comments PARTIAL THROMBOPLASTIN TIME (BEAKER) (test 101.4 seconds 22.5-36.0 efbf=472) BLOOD GAS, [id number] 17:23:00 Test Item Value Reference Range Comments PH ARTERIAL (BEAKER) (test pzmo=677) 7.36 7.35-7.45 PCO2 ARTERIAL (BEAKER) (test nmil=969) 60 mmHg 35-45 PO2 ARTERIAL (BEAKER) (test elrn=314) 82 mmHg 80-90 O2 SATURATION ARTERIAL (BEAKER) (test vgtv=127) 95.1 % 96.0-97.0 HCO3 ARTERIAL (BEAKER) (test ncpr=741) 33 mmol/L 21-29 BASE EXCESS ARTERIAL (BEAKER) (test tygx=408) 6.0 mmol/L -2.0-3.0 PATIENT TEMPERATURE (BEAKER) (test dhys=3452) 37.4 C FIO2 (BEAKER) (test qpbk=1029) 70.0 % GLUCOSE-STAT [id number] 17:20:00 Test Item Value Reference Range Comments GLUCOSE RANDOM (BEAKER) (test ttqn=923) 106 mg/dL 70-110 POCT-GLUCOSE [id number] 16:32:00 Test Item Value Reference Range Comments POC-GLUCOSE METER ([facility]) 115 mg/dL 70-110 TESTED AT [address] (test izck=6592) [place] [address] VANCOMYCIN LEVEL, [id number] 16:10:00 Test Item Value Reference Range Comments VANCOMYCIN TROUGH (AKER) (test nkbj=614) 17.0 ug/mL 10.0-20.0 POCT-GLUCOSE [id number] 15:32:00 Test Item Value Reference Range Comments POC-GLUCOSE METER (BEAKER) 119 mg/dL 70-110 TESTED AT [address] (test veof=6351) [place] [id number] TROPONIN [id number] 13:14:00 Test Item Value Reference Range Comments TROPONIN I (BEAKER) (test pbce=560) 81.57 ng/mL 0.00-0.03 Troponin I (TnI) levels [...] acute neurological disease, and persistent tachyarrhythmia.BASIC METABOLIC [id number] 12:49:00 Test Item Value Reference Range Comments SODIUM (BEAKER) (test 140 meq/L 136-145 upau=241) POTASSIUM (BEAKER) (test 3.6 meq/L 3.5-5.1 Specimen slightly zmsx=791) hemolyzed CHLORIDE (BEAKER) (test 104 meq/L 98-107 txeo=855) CO2 (BEAKER) (test 27 meq/L 22-29 tfdq=787) BLOOD UREA NITROGEN 37 mg/dL 7-21 (BEAKER) (test ceed=177) CREATININE (BEAKER) (test 2.35 mg/dL 0.57-1.25 Specimen slightly kxzp=339) hemolyzed GLUCOSE RANDOM (BEAKER) 192 mg/dL 70-105 (test icqp=402) CALCIUM (BEAKER) (test 8.1 mg/dL 8.4-10.2 gjgm=224) EGFR (BEAKER) (test 25 mL/min/1.73 sq m ESTIMATED GFR IS NOT mdcw=2929) ACCURATE CREATININE CLEARANCE IN PREDICTING GLOMERULAR FILTRATION RATE. ESTIMATED GFR IS NOT APPLICABLE FOR DIALYSIS PATIENTS. [id number] 12:46:00 Test Item Value Reference Range Comments MAGNESIUM (BEAKER) (test 2.2 mg/dL 1.6-2.6 Specimen slightly hemolyzed hkwg=727) [id number] 12:46:00 Test Item Value Reference Range Comments PHOSPHORUS (BEAKER) (test 4.6 mg/dL 2.3-4.7 Specimen slightly hemolyzed ztzo=192) POCT-GLUCOSE [id number] 12:16:00 Test Item Value Reference Range Comments POC-GLUCOSE METER (BEAKER) 210 mg/dL 70-110 TESTED AT [address] (test uobf=3601) [place] [id number] POCT-GLUCOSE [id number] 12:16:00 Test Item Value Reference Range Comments POC-GLUCOSE METER (BEAKER) 247 mg/dL 70-110 TESTED AT [address] (test zaoo=8031) [place] [address] POCT-GLUCOSE [id number] 12:16:00 Test Item Value Reference Range Comments POC-GLUCOSE METER (BEAKER) 174 mg/dL 70-110 TESTED AT [address] (test latb=4643) [place] [id number] BLOOD GAS, [id number] 12:14:00 Test Item Value Reference Range Comments PH ARTERIAL (BEAKER) (test adjy=358) 7.36 7.35-7.45 PCO2 ARTERIAL (BEAKER) (test ouss=201) 56 mmHg 35-45 PO2 ARTERIAL (BEAKER) (test jahw=833) 65 mmHg 80-90 O2 SATURATION ARTERIAL (BEAKER) (test mrjx=251) 90.4 % 96.0-97.0 HCO3 ARTERIAL (BEAKER) (test tlps=934) 31 mmol/L 21-29 BASE EXCESS ARTERIAL (BEAKER) (test kmai=477) 4.8 mmol/L -2.0-3.0 PATIENT TEMPERATURE (BEAKER) (test hddy=9559) 38.0 C FIO2 (BEAKER) (test kuio=1486) 60.0 % [id number] 10:58:00 Test Item Value Reference Range Comments PARTIAL THROMBOPLASTIN TIME (BEAKER) (test 99.0 seconds 22.5-36.0 bdfk=371) RAD, CHEST, 1 VIEW, NON [id number] 08:30:00Reason for exam:->r/o pleural effusionShould this be [...] No pneumothorax is seen. Signed: Yoshi Martinez [facility] Verified Date/Time: 07/20/2017 08:30:52 Reading Location: [facility] Radiology ReadingRoom BLOOD GAS, [id number] 06 :37:00 Test Item Value Reference Range Comments PH ARTERIAL (BEAKER) (test mzrd=905) 7.38 7.35-7.45 PCO2 ARTERIAL (BEAKER) (test ozid=598) 50 mmHg 35-45 PO2 ARTERIAL (BEAKER) (test emjf=127) 97 mmHg 80-90 O2 SATURATION ARTERIAL (BEAKER) (test lqdl=405) 96.9 % 96.0-97.0 HCO3 ARTERIAL (BEAKER) (test psdk=128) 28 mmol/L 21-29 BASE EXCESS ARTERIAL (BEAKER) (test hizu=388) 2.7 mmol/L -2.0-3.0 PATIENT TEMPERATURE (BEAKER) (test syby=1404) 37.8 C FIO2 (BEAKER) (test mnqs=2869) 40.0 % POCT-GLUCOSE [id number] 06:15:00 Test Item Value Reference Range Comments POC-GLUCOSE METER (BEAKER) 114 mg/dL 70-110 TESTED AT [address] (test nkrw=1677) [facility] [address] POCT-GLUCOSE [id number] 06:15:00 Test Item Value Reference Range Comments POC-GLUCOSE METER (BEAKER) 140 mg/dL 70-110 TESTED AT [address] (test mxgy=5128) [facility] [address] POCT-GLUCOSE [id number] 05:23:00 Test Item Value Reference Range Comments POC-GLUCOSE METER (BEAKER) 77 mg/dL 70-110 TESTED AT [address] (test lugb=9008) [facility] [address] CALCIUM, [id number] 04:34:00 Test Item Value Reference Range Comments CALCIUM IONIZED (BEAKER) (test lpwh=406) 1.14 mmol/L 1.12-1.27 PH, BLOOD (BEAKER) (test qvfs=0510) 7.34 BLOOD GAS, [id number] 04:32:00 Test Item Value Reference Range Comments PH ARTERIAL (BEAKER) (test pudn=554) 7.32 7.35-7.45 PCO2 ARTERIAL (BEAKER) (test hnyh=442) 60 mmHg 35-45 PO2 ARTERIAL (BEAKER) (test iitn=371) 92 mmHg 80-90 O2 SATURATION ARTERIAL (BEAKER) (test vymz=672) 95.9 % 96.0-97.0 HCO3 ARTERIAL (BEAKER) (test rtog=061) 30 mmol/L 21-29 BASE EXCESS ARTERIAL (BEAKER) (test estf=606) 3.2 mmol/L -2.0-3.0 PATIENT TEMPERATURE (BEAKER) (test kosr=3524) 37.8 C FIO2 (BEAKER) (test wtwh=9678) 40.0 % COMPREHENSIVE METABOLIC [id number] 04:24:00 Test Item Value Reference Range Comments TOTAL PROTEIN (BEAKER) 6.5 gm/dL 6.0-8.3 (test gmwd=816) ALBUMIN (BEAKER) (test 3.4 g/dL 3.5-5.0 cefk=6667) ALKALINE PHOSPHATASE 47 U/L 40-150 (BEAKER) (test xzhm=279) BILIRUBIN TOTAL (BEAKER) 0.8 mg/dL 0.2-1.2 (test ugqd=998) SODIUM (BEAKER) (test 142 meq/L 136-145 ftgc=564) POTASSIUM (BEAKER) (test 3.7 meq/L 3.5-5.1 gzir=952) CHLORIDE (BEAKER) (test 103 meq/L 98-107 ebxi=258) CO2 (BEAKER) (test 29 meq/L 22-29 xgqb=825) BLOOD UREA NITROGEN 34 mg/dL 7-21 (BEAKER) (test ydxy=971) CREATININE (BEAKER) (test 2.44 mg/dL 0.57-1.25 tgfq=994) GLUCOSE RANDOM (BEAKER) 128 mg/dL 70-105 (test zfep=870) CALCIUM (BEAKER) (test 8.7 mg/dL 8.4-10.2 miwo=977) AST (SGOT) (BEAKER) (test 158 U/L 5-34 qzjc=228) ALT (SGPT) (BEAKER) (test 63 U/L 6-55 xpyj=491) EGFR (BEAKER) (test 24 mL/min/1.73 sq m ESTIMATED GFR IS NOT cvyk=0782) ACCURATE CREATININE CLEARANCE IN PREDICTING GLOMERULAR FILTRATION RATE. ESTIMATED GFR IS NOT APPLICABLE FOR DIALYSIS PATIENTS. BASIC METABOLIC [id number] 04:24:00 Test Item Value Reference Range Comments SODIUM (BEAKER) (test 142 meq/L 136-145 yilr=953) POTASSIUM (BEAKER) (test 3.7 meq/L 3.5-5.1 erga=301) CHLORIDE (BEAKER) (test 103 meq/L 98-107 oegc=140) CO2 (BEAKER) (test 29 meq/L 22-29 gzcx=736) BLOOD UREA NITROGEN 34 mg/dL 7-21 (BEAKER) (test ttar=035) CREATININE (BEAKER) (test 2.44 mg/dL 0.57-1.25 pegu=394) GLUCOSE RANDOM (BEAKER) 128 mg/dL 70-105 (test uraf=340) CALCIUM (BEAKER) (test 8.7 mg/dL 8.4-10.2 ovwf=633) EGFR (BEAKER) (test 24 mL/min/1.73 sq m ESTIMATED GFR IS NOT sxtv=3362) ACCURATE CREATININE CLEARANCE IN PREDICTING GLOMERULAR FILTRATION RATE. ESTIMATED GFR IS NOT APPLICABLE FOR DIALYSIS PATIENTS. [id number] 04:22:00 Test Item Value Reference Range Comments PHOSPHORUS (BEAKER) (test rlhj=419) 5.2 mg/dL 2.3-4.7 [id number] 04:22:00 Test Item Value Reference Range Comments MAGNESIUM (BEAKER) (test ikuy=071) 2.4 mg/dL 1.6-2.6 HEPATIC FUNCTION [id number] 04:22:00 Test Item Value Reference Range Comments TOTAL PROTEIN (BEAKER) (test rfnr=834) 6.5 gm/dL 6.0-8.3 ALBUMIN (BEAKER) (test ausx=1495) 3.4 g/dL 3.5-5.0 BILIRUBIN TOTAL (BEAKER) (test dmoi=278) 0.8 mg/dL 0.2-1.2 BILIRUBIN DIRECT (BEAKER) (test vcsz=618) 0.4 mg/dL 0.1-0.5 ALKALINE PHOSPHATASE (BEAKER) (test ysik=897) 47 U/L 40-150 AST (SGOT) (BEAKER) (test oury=846) 158 U/L 5-34 ALT (SGPT) (BEAKER) (test kizc=577) 63 U/L 6-55 [id number] 04:12:00 Test Item Value Reference Range Comments PARTIAL THROMBOPLASTIN TIME (BEAKER) (test 36.8 seconds 22.5-36.0 uvjj=321) Prior to initiating heparinPOCT-GLUCOSE [id number] 04:05:00 Test Item Value Reference Range Comments POC-GLUCOSE METER (BEAKER) 134 mg/dL 70-110 TESTED AT [address] (test dovp=9152) [facility] [address] POCT-GLUCOSE [id number] 04:05:00 Test Item Value Reference Range Comments POC-GLUCOSE METER (BEAKER) 122 mg/dL 70-110 TESTED AT [facility] [address] [facility] (test unac=8684) [facility] [address] POCT-GLUCOSE [id number] 04:05:00 Test Item Value Reference Range Comments POC-GLUCOSE METER (BEAKER) 201 mg/dL 70-110 TESTED AT [place] [id number] [facility] (test jjhx=0388) [facility] [address] CBC W/PLT COUNT & AUTO [id number] 04:02:00 Test Item Value Reference Range Comments WHITE BLOOD CELL COUNT (BEAKER) (test hxxx=583) 13.6 K/ L 3.5-10.5 RED BLOOD CELL COUNT (BEAKER) (test lbea=691) 3.18 M/ L 3.93-5.22 HEMOGLOBIN (BEAKER) (test pfgn=151) 9.7 GM/DL 11.2-15.7 HEMATOCRIT (BEAKER) (test ixfd=069) 31.0 % 34.1-44.9 MEAN CORPUSCULAR VOLUME (BEAKER) (test cfia=706) 97.5 fL 79.4-94.8 MEAN CORPUSCULAR HEMOGLOBIN (BEAKER) (test 30.5 pg 25.6-32.2 urcn=154) MEAN CORPUSCULAR HEMOGLOBIN CONC (BEAKER) (test 31.3 GM/DL 32.2-35.5 punr=414) RED CELL DISTRIBUTION WIDTH (BEAKER) (test 13.3 % 11.7-14.4 trxg=316) PLATELET COUNT (BEAKER) (test gext=481) 167 K/CU MM 150-450 MEAN PLATELET VOLUME (BEAKER) (test muke=206) 11.0 fL 9.4-12.3 NUCLEATED RED BLOOD CELLS (BEAKER) (test 0 /100 WBC 0-0 yuly=197) NEUTROPHILS RELATIVE PERCENT (BEAKER) (test 85 % fxtg=539) LYMPHOCYTES RELATIVE PERCENT (BEAKER) (test 7 % zhiq=249) MONOCYTES RELATIVE PERCENT (BEAKER) (test 7 % jzii=747) EOSINOPHILS RELATIVE PERCENT (BEAKER) (test 0 % jgdo=847) BASOPHILS RELATIVE PERCENT (BEAKER) (test 0 % czio=650) NEUTROPHILS ABSOLUTE COUNT (BEAKER) (test 11.61 K/ L 1.56-6.13 lugy=833) LYMPHOCYTES ABSOLUTE COUNT (BEAKER) (test 0.98 K/ L 1.18-3.74 wvhs=656) MONOCYTES ABSOLUTE COUNT (BEAKER) (test 0.92 K/ L 0.24-0.36 kdor=322) EOSINOPHILS ABSOLUTE COUNT (BEAKER) (test 0.00 K/ L 0.04-0.36 qzsu=405) BASOPHILS ABSOLUTE COUNT (BEAKER) (test 0.02 K/ L 0.01-0.08 voem=689) IMMATURE GRANULOCYTES-RELATIVE PERCENT (BEAKER) 1 % 0-1 (test dfcq=1867) [id number] 02:01:00 Test Item Value Reference Range Comments PARTIAL THROMBOPLASTIN TIME (BEAKER) (test 32.5 seconds 22.5-36.0 pdau=022) BLOOD GAS, [id number] 01:09:00 Test Item Value Reference Range Comments PH ARTERIAL (BEAKER) (test lblf=342) 7.35 7.35-7.45 PCO2 ARTERIAL (BEAKER) (test kbxj=126) 50 mmHg 35-45 PO2 ARTERIAL (BEAKER) (test rxub=079) 86 mmHg 80-90 O2 SATURATION ARTERIAL (BEAKER) (test pots=370) 95.3 % 96.0-97.0 HCO3 ARTERIAL (BEAKER) (test mrsm=700) 27 mmol/L 21-29 BASE EXCESS ARTERIAL (BEAKER) (test ziwu=848) 1.0 mmol/L -2.0-3.0 PATIENT TEMPERATURE (BEAKER) (test chgr=5962) 38.2 C FIO2 (BEAKER) (test ssfu=8028) 40.0 % POCT-GLUCOSE [id number] 01:04:00 Test Item Value Reference Range Comments POC-GLUCOSE METER (BEAKER) 199 mg/dL 70-110 TESTED AT [facility] [address] [facility] (test hfqb=7413) [facility] [address] [id number] 00:14:00 Test Item Value Reference Range Comments MAGNESIUM (BEAKER) (test 2.3 mg/dL 1.6-2.6 Specimen slightly hemolyzed cyhh=993) [id number] 00:14:00 Test Item Value Reference Range Comments POTASSIUM (BEAKER) (test 3.8 meq/L 3.5-5.1 Specimen slightly hemolyzed tedn=245) CALCIUM, [id number] 00:11:00 Test Item Value Reference Range Comments CALCIUM IONIZED (BEAKER) (test oteu=836) 1.06 mmol/L 1.12-1.27 PH, BLOOD (BEAKER) (test hajp=2224) 7.35 BLOOD GAS, [id number] 00:11:00 Test Item Value Reference Range Comments PH ARTERIAL (BEAKER) (test hbpy=149) 7.33 7.35-7.45 PCO2 ARTERIAL (BEAKER) (test wlhb=104) 53 mmHg 35-45 PO2 ARTERIAL (BEAKER) (test gcdc=753) 58 mmHg 80-90 O2 SATURATION ARTERIAL (BEAKER) (test vtol=071) 86.1 % 96.0-97.0 HCO3 ARTERIAL (BEAKER) (test jfhx=252) 27 mmol/L 21-29 BASE EXCESS ARTERIAL (BEAKER) (test hyvn=698) 0.9 mmol/L -2.0-3.0 PATIENT TEMPERATURE (BEAKER) (test ldmj=4986) 38.0 C FIO2 (BEAKER) (test vcnl=2090) 40.0 % Post extubation ABGPOCT-GLUCOSE [id number] 23:58:00 Test Item Value Reference Range Comments POC-GLUCOSE METER (BEAKER) 202 mg/dL 70-110 TESTED AT [address] (test nfco=0969) [place] [id number] POCT-GLUCOSE [id number] 23:58:00 Test Item Value Reference Range Comments POC-GLUCOSE METER (BEAKER) 86 mg/dL 70-110 TESTED AT [address] (test vipi=1352) [facility] [address] BASIC METABOLIC [id number] 22:18:00 Test Item Value Reference Range Comments SODIUM (BEAKER) (test 141 meq/L 136-145 yawg=382) POTASSIUM (BEAKER) (test 3.6 meq/L 3.5-5.1 Specimen slightly qwee=404) hemolyzed CHLORIDE (BEAKER) (test 105 meq/L 98-107 tqjh=510) CO2 (BEAKER) (test 26 meq/L 22-29 wyex=396) BLOOD UREA NITROGEN 31 mg/dL 7-21 (BEAKER) (test swgp=258) CREATININE (BEAKER) (test 2.09 mg/dL 0.57-1.25 Specimen slightly dmbe=618) hemolyzed GLUCOSE RANDOM (BEAKER) 81 mg/dL 70-105 (test dige=836) CALCIUM (BEAKER) (test 8.3 mg/dL 8.4-10.2 dcit=165) EGFR (BEAKER) (test 28 mL/min/1.73 sq m ESTIMATED GFR IS NOT ptmi=7449) ACCURATE CREATININE CLEARANCE IN PREDICTING GLOMERULAR FILTRATION RATE. ESTIMATED GFR IS NOT APPLICABLE FOR DIALYSIS PATIENTS. [id number] 22:17:00 Test Item Value Reference Range Comments PHOSPHORUS (BEAKER) (test 5.1 mg/dL 2.3-4.7 Specimen slightly hemolyzed zaad=374) POCT-GLUCOSE [id number] 20:57:00 Test Item Value Reference Range Comments POC-GLUCOSE METER (BEAKER) 90 mg/dL 70-110 TESTED AT [address] (test dwbc=2023) [facility] [address] BLOOD GAS, [id number] 20:52:00 Test Item Value Reference Range Comments PH ARTERIAL (BEAKER) (test xrot=811) 7.35 7.35-7.45 PCO2 ARTERIAL (BEAKER) (test zkdk=077) 49 mmHg 35-45 PO2 ARTERIAL (BEAKER) (test akaq=357) 100 mmHg 80-90 O2 SATURATION ARTERIAL (BEAKER) (test idbh=693) 97.0 % 96.0-97.0 HCO3 ARTERIAL (BEAKER) (test antd=069) 26 mmol/L 21-29 BASE EXCESS ARTERIAL (BEAKER) (test mhek=239) 0.3 mmol/L -2.0-3.0 PATIENT TEMPERATURE (BEAKER) (test adad=1292) 37.7 C FIO2 (BEAKER) (test hkvg=6393) 40.0 % [id number] 18:57:00 Test Item Value Reference Range Comments PARTIAL THROMBOPLASTIN TIME (BEAKER) (test 70.7 seconds 22.5-36.0 ldgx=607) BLOOD GAS, [id number] 16:52:00 Test Item Value Reference Range Comments PH ARTERIAL (BEAKER) (test xgbb=945) 7.37 7.35-7.45 PCO2 ARTERIAL (BEAKER) (test cfni=312) 47 mmHg 35-45 PO2 ARTERIAL (BEAKER) (test fsda=264) 117 mmHg 80-90 O2 SATURATION ARTERIAL (BEAKER) (test nwtv=170) 98.0 % 96.0-97.0 HCO3 ARTERIAL (BEAKER) (test skkh=897) 26 mmol/L 21-29 BASE EXCESS ARTERIAL (BEAKER) (test soml=197) 0.5 mmol/L -2.0-3.0 PATIENT TEMPERATURE (BEAKER) (test onmj=4953) 37.7 C FIO2 (BEAKER) (test catf=7989) 60.0 % GLUCOSE-STAT [id number] 16:52:00 Test Item Value Reference Range Comments GLUCOSE RANDOM (BEAKER) (test xeoy=776) 149 mg/dL 70-110 [id number] 16:22:00 Test Item Value Reference Range Comments PARTIAL THROMBOPLASTIN TIME (BEAKER) (test 197.7 seconds 22.5-36.0 pjbo=483) PROTHROMBIN TIME/[id number] 16:15:00 Test Item Value Reference Range Comments PROTIME (BEAKER) (test tdrp=720) 16.4 seconds 11.7-14.7 INR (BEAKER) (test lmgn=391) 1.3 <=5.9 RECOMMENDED COUMADIN/WARFARIN INR THERAPY RANGESSTANDARD DOSE: 2.0 - 3.0 Includes: PROPHYLAXIS forvenous thrombosis, systemic embolization; TREATMENT for venous thrombosis and/or pulmonary embolus.HIGH RISK: Target INR is 2.5-3.5 for patients with mechanical heart valves.[id number] 16:15:00 Test Item Value Reference Range Comments FIBRINOGEN LEVEL (BEAKER) (test fasv=616) 303 mg/dl 225-434 [id number] 16:15:00 Test Item Value Reference Range Comments MAGNESIUM (BEAKER) (test 3.0 mg/dL 1.6-2.6 Specimen moderately hemolyzed fosr=855) [id number] 16:15:00 Test Item Value Reference Range Comments PHOSPHORUS (BEAKER) (test 6.6 mg/dL 2.3-4.7 Specimen moderately hemolyzed qrmv=711) BASIC METABOLIC [id number] 16:15:00 Test Item Value Reference Range Comments SODIUM (BEAKER) (test 144 meq/L 136-145 cfxa=232) POTASSIUM (BEAKER) (test 4.1 meq/L 3.5-5.1 Specimen moderately sgaz=757) hemolyzed CHLORIDE (BEAKER) (test 106 meq/L 98-107 pxrp=852) CO2 (BEAKER) (test 27 meq/L 22-29 yqdd=075) BLOOD UREA NITROGEN 30 mg/dL 7-21 (BEAKER) (test eqhs=184) CREATININE (BEAKER) (test 1.99 mg/dL 0.57-1.25 Specimen moderately oasq=197) hemolyzed GLUCOSE RANDOM (BEAKER) 165 mg/dL 70-105 (test ctkg=119) CALCIUM (BEAKER) (test 8.6 mg/dL 8.4-10.2 ucjw=622) EGFR (BEAKER) (test 30 mL/min/1.73 sq m ESTIMATED GFR IS NOT zxwi=5627) ACCURATE CREATININE CLEARANCE IN PREDICTING GLOMERULAR FILTRATION RATE. ESTIMATED GFR IS NOT APPLICABLE FOR DIALYSIS PATIENTS. CBC (HEMOGRAM ONLY)[id number] 16:13:00 Test Item Value Reference Range Comments WHITE BLOOD CELL COUNT (BEAKER) (test gxqy=901) 14.5 K/ L 3.5-10.5 RED BLOOD CELL COUNT (BEAKER) (test ocgl=078) 3.55 M/ L 3.93-5.22 HEMOGLOBIN (BEAKER) (test tkmw=219) 10.7 GM/DL 11.2-15.7 HEMATOCRIT (BEAKER) (test pjwg=921) 34.9 % 34.1-44.9 MEAN CORPUSCULAR VOLUME (BEAKER) (test xjzm=284) 98.3 fL 79.4-94.8 MEAN CORPUSCULAR HEMOGLOBIN (BEAKER) (test 30.1 pg 25.6-32.2 nlwk=945) MEAN CORPUSCULAR HEMOGLOBIN CONC (BEAKER) (test 30.7 GM/DL 32.2-35.5 ijxq=124) RED CELL DISTRIBUTION WIDTH (BEAKER) (test 13.3 % 11.7-14.4 xepa=167) PLATELET COUNT (BEAKER) (test eacy=579) 235 K/CU MM 150-450 MEAN PLATELET VOLUME (BEAKER) (test xyth=837) 11.0 fL 9.4-12.3 NUCLEATED RED BLOOD CELLS (BEAKER) (test 0 /100 WBC 0-0 vphl=352) LACTIC ACID, ARTERIAL, WHOLE [id number] 16:12:00 Test Item Value Reference Range Comments LACTATE BLOOD ARTERIAL (2) 2.0 mmol/L 0.5-2.2 Specimen slightly hemolyzed (BEAKER) (test nsmj=7390) Effective 08/06/2015: Units/Reference Range ChangeNew: 0.5-2.2 mmol/L Previous: 5 -20 mg/dLCALCIUM, [id number] 15:54:00 Test Item Value Reference Range Comments CALCIUM IONIZED (BEAKER) (test tmzx=482) 1.14 mmol/L 1.12-1.27 PH, BLOOD (BEAKER) (test uktx=6189) 7.24 SODIUM NA-STAT [id number] 15:54:00 Test Item Value Reference Range Comments SODIUM (BEAKER) (test keez=804) 143 meq/L 135-148 POTASSIUM-STAT [id number] 15:54:00 Test Item Value Reference Range Comments POTASSIUM (BEAKER) (test bhme=323) 3.9 meq/L 3.6-5.5 BLOOD GAS, [id number] 15:54:00 Test Item Value Reference Range Comments PH ARTERIAL (BEAKER) (test ajnv=687) 7.26 7.35-7.45 PCO2 ARTERIAL (BEAKER) (test cwfi=910) 69 mmHg 35-45 PO2 ARTERIAL (BEAKER) (test mlgz=990) 74 mmHg 80-90 O2 SATURATION ARTERIAL (BEAKER) (test pwvf=262) 93.4 % 96.0-97.0 HCO3 ARTERIAL (BEAKER) (test tasd=304) 31 mmol/L 21-29 BASE EXCESS ARTERIAL (BEAKER) (test nrcd=485) 2.0 mmol/L -2.0-3.0 PATIENT TEMPERATURE (BEAKER) (test mwnx=9305) 35.6 C FIO2 (BEAKER) (test tkll=8112) 50.0 % GLUCOSE-STAT [id number] 15:54:00 Test Item Value Reference Range Comments GLUCOSE RANDOM (BEAKER) (test ijzb=769) 169 mg/dL 70-110 HGB/HCT (H&H) - STAT [id number] 15:54:00 Test Item Value Reference Range Comments HEMOGLOBIN (STEVAN) (test cuso=817) 11.7 g/dL 12.0-15.0 HEMATOCRIT (STEVAN) (test lpuh=273) 34.0 % 36.0-45.0 RAD, CHEST, 1 VIEW, NON [id number] 15:49:00Reason for exam:->sp PCI/ intubatedFINAL REPORT TECHNIQUE: [...] [place]eleport Verified Date/Time: 07/19/2017 15:49:37 Reading Location: [facility] RadiologyReading Room [id number] 14:13:00 Test Item Value Reference Range Comments ACTIVATED CLOTTING TIME 131 sec TESTED AT [facility] [address] [facility] ([place]) (test hwrc=432) [facility] [address] TROPONIN [id number] 12:32:00 Test Item Value Reference Range Comments TROPONIN I (STEVAN) (test eoqm=784) 119.79 ng/mL 0.00-0.03 Troponin I (TnI) levels [...] and persistent tachyarrhythmia.CREATINE KINASE (CK), TOTAL AND [id number] 12:26:00 Test Item Value Reference Range Comments CREATINE KINASE TOTAL (STEVAN) (test wxxv=451) 2405 U/L 29-200 CREATINE KINASE-MB (BEAKER) (test zswy=308) 65.6 ng/mL 0.0-6.6 CREATINE KINASE-MB INDEX (BEAKER) (test wdkv=731) 2.7 % CK-MB Reference Range:<6.7 Normal6.7-10.0 Borderline>10.0 AbnormalPOCT-GLUCOSE [id number] 12:20:00 Test Item Value Reference Range Comments POC-GLUCOSE METER (BEAKER) 183 mg/dL 70-110 TESTED AT [address] (test zvjb=3702) [place] [address] [id number] 12:03:00 Test Item Value Reference Range Comments MAGNESIUM (BEAKER) (test woan=206) 2.8 mg/dL 1.6-2.6 [id number] 12:03:00 Test Item Value Reference Range Comments PHOSPHORUS (BEAKER) (test thgk=284) 5.3 mg/dL 2.3-4.7 BASIC METABOLIC [id number] 12:03:00 Test Item Value Reference Range Comments SODIUM (BEAKER) (test 143 meq/L 136-145 odqx=637) POTASSIUM (BEAKER) (test 3.8 meq/L 3.5-5.1 zvnl=970) CHLORIDE (BEAKER) (test 106 meq/L 98-107 msdb=177) CO2 (BEAKER) (test 27 meq/L 22-29 yhrw=028) BLOOD UREA NITROGEN 29 mg/dL 7-21 (BEAKER) (test odyq=831) CREATININE (BEAKER) (test 1.92 mg/dL 0.57-1.25 asky=715) GLUCOSE RANDOM (BEAKER) 188 mg/dL 70-105 (test mrzp=653) CALCIUM (BEAKER) (test 8.7 mg/dL 8.4-10.2 orlt=990) EGFR (BEAKER) (test 31 mL/min/1.73 sq m ESTIMATED GFR IS NOT muvi=8561) ACCURATE CREATININE CLEARANCE IN PREDICTING GLOMERULAR FILTRATION RATE. ESTIMATED GFR IS NOT APPLICABLE FOR DIALYSIS PATIENTS. POCT-GLUCOSE [id number] 11:19:00 Test Item Value Reference Range Comments POC-GLUCOSE METER (BEAKER) 190 mg/dL 70-110 TESTED AT [address] (test ogih=2932) [place] [address] POCT-GLUCOSE [id number] 10:12:00 Test Item Value Reference Range Comments POC-GLUCOSE METER (BEAKER) 197 mg/dL 70-110 TESTED AT [address] (test wztw=2659) [place] [address] POCT-GLUCOSE [id number] 09:21:00 Test Item Value Reference Range Comments POC-GLUCOSE METER (BEAKER) 221 mg/dL 70-110 TESTED AT [address] (test maij=3493) [place] [address] LACTIC ACID, ARTERIAL, WHOLE [id number] 09:19:00 Test Item Value Reference Range Comments LACTATE BLOOD ARTERIAL (2) (BEAKER) (test 2.4 mmol/L 0.5-2.2 zrpm=1686) Effective 08/06/2015: Units/Reference Range ChangeNew: 0.5-2.2 mmol/L Previous: 5 -20 mg/dLPROTHROMBIN [id number] 08:44:00 Test Item Value Reference Range Comments PROTIME (BEAKER) (test nekd=492) 14.4 seconds 11.7-14.7 INR (BEAKER) (test yvns=375) 1.1 <=5.9 RECOMMENDED COUMADIN/WARFARIN INR THERAPY RANGESSTANDARD DOSE: 2.0 - 3.0 Includes: PROPHYLAXIS forvenous thrombosis, systemic embolization; TREATMENT for venous thrombosis and/or pulmonary embolus.HIGH RISK: Target INR is 2.5-3.5 for patients with mechanical heart valves.[id number] 08:44:00 Test Item Value Reference Range Comments FIBRINOGEN LEVEL (BEAKER) (test sqrs=410) 367 mg/dl 225-434 [id number] 08:44:00 Test Item Value Reference Range Comments PARTIAL THROMBOPLASTIN TIME (BEAKER) (test 30.0 seconds 22.5-36.0 rhir=672) POCT-GLUCOSE [id number] 07:52:00 Test Item Value Reference Range Comments POC-GLUCOSE METER (BEAKER) 215 mg/dL 70-110 TESTED AT [address] (test txre=0984) [place] [address] CT, CHEST, WITHOUT [id number] 07:50:00KEEP PATIENT ON CT TABLE. CALL RADIOLOGIST [...] Verified Date /Time: 07/19/2017 07:50:43 Reading Location: [facility] Diagnostic Imaging Reading Room - [place] [id number] Electronically signed by: LYNNETTE CASTRO MD on 07:50 AMPOCT-GLUCOSE [id number] 07:37:00 Test Item Value Reference Range Comments POC-GLUCOSE METER (BEAKER) 225 mg/dL 70-110 TESTED AT [facility] [address] (test pcus=3215) [facility] [address] RAD, CHEST, 1 VIEW, NON [id number] 04:04:00Reason for exam:->v tach/ iabpShould this be [...] MDReport Verified Date/Time: 07/19/2017 04:04:19 Reading Location: [place] [id number] Ortho Consult Reading Room [id number] 03:59:00 Test Item Value Reference Range Comments PHOSPHORUS (BEAKER) (test ktxq=251) 4.4 mg/dL 2.3-4.7 [id number] 03:59:00 Test Item Value Reference Range Comments MAGNESIUM (BEAKER) (test tins=804) 2.5 mg/dL 1.6-2.6 BASIC METABOLIC [id number] 03:59:00 Test Item Value Reference Range Comments SODIUM (BEAKER) (test 145 meq/L 136-145 pnxl=703) POTASSIUM (BEAKER) (test 3.6 meq/L 3.5-5.1 krmx=493) CHLORIDE (BEAKER) (test 106 meq/L 98-107 bvbb=337) CO2 (BEAKER) (test 25 meq/L 22-29 cfjr=748) BLOOD UREA NITROGEN 28 mg/dL 7-21 (BEAKER) (test ofwl=515) CREATININE (BEAKER) (test 1.93 mg/dL 0.57-1.25 aqau=780) GLUCOSE RANDOM (BEAKER) 216 mg/dL 70-105 (test sawu=303) CALCIUM (BEAKER) (test 9.0 mg/dL 8.4-10.2 irwn=944) EGFR (BEAKER) (test 31 mL/min/1.73 sq m ESTIMATED GFR IS NOT isuu=4998) ACCURATE CREATININE CLEARANCE IN PREDICTING GLOMERULAR FILTRATION RATE. ESTIMATED GFR IS NOT APPLICABLE FOR DIALYSIS PATIENTS. B-TYPE NATRIURETIC FACTOR (BNP)2017-07-19 03:10:00 Test Item Value Reference Range Comments B-TYPE NATRIURETIC PEPTIDE (BEAKER) (test 2662 pg/mL 0-100 euqd=206) HEPATIC FUNCTION [id number] 03:04:00 Test Item Value Reference Range Comments TOTAL PROTEIN (BEAKER) (test vxep=234) 6.6 gm/dL 6.0-8.3 ALBUMIN (BEAKER) (test jvac=5041) 3.5 g/dL 3.5-5.0 BILIRUBIN TOTAL (BEAKER) (test rdiy=356) 0.4 mg/dL 0.2-1.2 BILIRUBIN DIRECT (BEAKER) (test poyj=451) 0.2 mg/dL 0.1-0.5 ALKALINE PHOSPHATASE (BEAKER) (test kvfy=320) 57 U/L 40-150 AST (SGOT) (BEAKER) (test cymy=530) 359 U/L 5-34 ALT (SGPT) (BEAKER) (test wczc=681) 99 U/L 6-55 CREATINE KINASE (CK)2017-07-19 03:04:00 Test Item Value Reference Range Comments CREATINE KINASE TOTAL (BEAKER) (test qwxa=230) 2888 U/L 29-200 CBC W/PLT COUNT & AUTO [id number] 02:56:00 Test Item Value Reference Range Comments WHITE BLOOD CELL COUNT (BEAKER) (test pwvi=150) 19.0 K/ L 3.5-10.5 RED BLOOD CELL COUNT (BEAKER) (test ybpp=667) 3.69 M/ L 3.93-5.22 HEMOGLOBIN (BEAKER) (test hzpm=071) 11.2 GM/DL 11.2-15.7 HEMATOCRIT (BEAKER) (test mrsp=064) 35.3 % 34.1-44.9 MEAN CORPUSCULAR VOLUME (BEAKER) (test resk=428) 95.7 fL 79.4-94.8 MEAN CORPUSCULAR HEMOGLOBIN (BEAKER) (test 30.4 pg 25.6-32.2 hlzc=444) MEAN CORPUSCULAR HEMOGLOBIN CONC (BEAKER) (test 31.7 GM/DL 32.2-35.5 xfsr=850) RED CELL DISTRIBUTION WIDTH (BEAKER) (test 13.1 % 11.7-14.4 zsoh=455) PLATELET COUNT (BEAKER) (test isva=252) 253 K/CU MM 150-450 MEAN PLATELET VOLUME (BEAKER) (test wanz=409) 10.0 fL 9.4-12.3 NUCLEATED RED BLOOD CELLS (BEAKER) (test 0 /100 WBC 0-0 rilz=844) NEUTROPHILS RELATIVE PERCENT (BEAKER) (test 86 % uqsi=012) LYMPHOCYTES RELATIVE PERCENT (BEAKER) (test 6 % fpfb=195) MONOCYTES RELATIVE PERCENT (BEAKER) (test 7 % czud=171) EOSINOPHILS RELATIVE PERCENT (BEAKER) (test 0 % snaa=850) BASOPHILS RELATIVE PERCENT (BEAKER) (test 0 % zrgm=898) NEUTROPHILS ABSOLUTE COUNT (BEAKER) (test 16.34 K/ L 1.56-6.13 lfdg=828) LYMPHOCYTES ABSOLUTE COUNT (BEAKER) (test 1.15 K/ L 1.18-3.74 qgri=665) MONOCYTES ABSOLUTE COUNT (BEAKER) (test 1.39 K/ L 0.24-0.36 rexq=721) EOSINOPHILS ABSOLUTE COUNT (BEAKER) (test 0.00 K/ L 0.04-0.36 lybr=756) BASOPHILS ABSOLUTE COUNT (BEAKER) (test 0.02 K/ L 0.01-0.08 khvq=313) IMMATURE GRANULOCYTES-RELATIVE PERCENT (BEAKER) 0 % 0-1 (test qhul=6421) CALCIUM, [id number] 02:49:00 Test Item Value Reference Range Comments CALCIUM IONIZED (BEAKER) (test stsc=564) 1.14 mmol/L 1.12-1.27 PH, BLOOD (BEAKER) (test vbes=1343) 7.36 CBC (HEMOGRAM ONLY)2017-07-19 02:48:00 Test Item Value Reference Range Comments WHITE BLOOD CELL COUNT (BEAKER) (test ujbr=892) 19.0 K/ L 3.5-10.5 RED BLOOD CELL COUNT (BEAKER) (test zdqr=794) 3.69 M/ L 3.93-5.22 HEMOGLOBIN (BEAKER) (test djkb=878) 11.2 GM/DL 11.2-15.7 HEMATOCRIT (BEAKER) (test fpvc=919) 35.3 % 34.1-44.9 MEAN CORPUSCULAR VOLUME (BEAKER) (test yepz=251) 95.7 fL 79.4-94.8 MEAN CORPUSCULAR HEMOGLOBIN (BEAKER) (test 30.4 pg 25.6-32.2 mxob=417) MEAN CORPUSCULAR HEMOGLOBIN CONC (BEAKER) (test 31.7 GM/DL 32.2-35.5 crax=157) RED CELL DISTRIBUTION WIDTH (BEAKER) (test 13.1 % 11.7-14.4 bthd=081) PLATELET COUNT (BEAKER) (test cpmd=186) 253 K/CU MM 150-450 MEAN PLATELET VOLUME (BEAKER) (test zlkz=409) 10.0 fL 9.4-12.3 NUCLEATED RED BLOOD CELLS (BEAKER) (test 0 /100 WBC 0-0 oxuj=672) BLOOD GAS, [id number] 02:48:00 Test Item Value Reference Range Comments PH ARTERIAL (BEAKER) (test ombi=163) 7.35 7.35-7.45 PCO2 ARTERIAL (BEAKER) (test pewk=014) 55 mmHg 35-45 PO2 ARTERIAL (BEAKER) (test uioq=472) 73 mmHg 80-90 O2 SATURATION ARTERIAL (BEAKER) (test yndp=389) 93.3 % 96.0-97.0 HCO3 ARTERIAL (BEAKER) (test hvul=838) 30 mmol/L 21-29 BASE EXCESS ARTERIAL (BEAKER) (test bjza=671) 3.1 mmol/L -2.0-3.0 PATIENT TEMPERATURE (BEAKER) (test sqbp=7374) 37.5 C FIO2 (BEAKER) (test msff=9080) 40.0 % POCT-GLUCOSE [id number] 02:21:00 Test Item Value Reference Range Comments POC-GLUCOSE METER (BEAKER) 184 mg/dL 70-110 TESTED AT [facility] [address] [facility] (test dusb=5949) [facility] [address] POCT-GLUCOSE [id number] 01:15:00 Test Item Value Reference Range Comments POC-GLUCOSE METER (BEAKER) 173 mg/dL 70-110 TESTED AT [address] (test hxdc=6923) [facility] [address] [id number] 00:55:00 Test Item Value Reference Range Comments PHOSPHORUS (BEAKER) (test fwbj=138) 3.3 mg/dL 2.3-4.7 [id number] 00:55:00 Test Item Value Reference Range Comments MAGNESIUM (BEAKER) (test avrk=108) 1.8 mg/dL 1.6-2.6 BASIC METABOLIC [id number] 00:55:00 Test Item Value Reference Range Comments SODIUM (BEAKER) (test 143 meq/L 136-145 hvvq=817) POTASSIUM (BEAKER) (test 3.9 meq/L 3.5-5.1 zrkp=341) CHLORIDE (BEAKER) (test 106 meq/L 98-107 xoih=387) CO2 (BEAKER) (test 27 meq/L 22-29 nisw=564) BLOOD UREA NITROGEN 27 mg/dL 7-21 (BEAKER) (test lrzn=486) CREATININE (BEAKER) (test 1.90 mg/dL 0.57-1.25 wjcd=958) GLUCOSE RANDOM (BEAKER) 181 mg/dL 70-105 (test mrzu=429) CALCIUM (BEAKER) (test 8.9 mg/dL 8.4-10.2 yeep=178) EGFR (BEAKER) (test 32 mL/min/1.73 sq m ESTIMATED GFR IS NOT lqyd=3940) ACCURATE CREATININE CLEARANCE IN PREDICTING GLOMERULAR FILTRATION RATE. ESTIMATED GFR IS NOT APPLICABLE FOR DIALYSIS PATIENTS. POCT-GLUCOSE [id number] 00:11:00 Test Item Value Reference Range Comments POC-GLUCOSE METER (BEAKER) 177 mg/dL 70-110 TESTED AT [address] (test kxgu=5466) [facility] [address] POCT-GLUCOSE [id number] 23:25:00 Test Item Value Reference Range Comments POC-GLUCOSE METER (BEAKER) 206 mg/dL 70-110 TESTED AT [address] (test jbjk=4807) [facility] [address] POCT-GLUCOSE [id number] 22:19:00 Test Item Value Reference Range Comments POC-GLUCOSE METER (BEAKER) 243 mg/dL 70-110 TESTED AT [address] (test fvuu=6977) [facility] [address] POCT-GLUCOSE [id number] 21:37:00 Test Item Value Reference Range Comments POC-GLUCOSE METER (BEAKER) 235 mg/dL 70-110 TESTED AT [address] (test sqdb=4850) [facility] [address] POCT-GLUCOSE [id number] 20:04:00 Test Item Value Reference Range Comments POC-GLUCOSE METER (BEAKER) 216 mg/dL 70-110 TESTED AT [address] (test xmtz=3137) [facility] [address] POCT-GLUCOSE [id number] 18:40:00 Test Item Value Reference Range Comments POC-GLUCOSE METER (BEAKER) 271 mg/dL 70-110 TESTED AT [address] (test anib=6689) [facility] [address] [id number] 18:32:00 Test Item Value Reference Range Comments MAGNESIUM (BEAKER) (test 1.9 mg/dL 1.6-2.6 Specimen slightly hemolyzed fgor=177) [id number] 18:32:00 Test Item Value Reference Range Comments PHOSPHORUS (BEAKER) (test 3.1 mg/dL 2.3-4.7 Specimen slightly hemolyzed cymb=188) BASIC METABOLIC [id number] 18:32:00 Test Item Value Reference Range Comments SODIUM (BEAKER) (test 142 meq/L 136-145 jday=786) POTASSIUM (BEAKER) (test 3.9 meq/L 3.5-5.1 Specimen slightly syup=578) hemolyzed CHLORIDE (BEAKER) (test 107 meq/L 98-107 evdv=653) CO2 (BEAKER) (test 24 meq/L 22-29 iwvi=440) BLOOD UREA NITROGEN 22 mg/dL 7-21 (BEAKER) (test tnum=067) CREATININE (BEAKER) (test 1.55 mg/dL 0.57-1.25 Specimen slightly kfka=017) hemolyzed GLUCOSE RANDOM (BEAKER) 242 mg/dL 70-105 (test elrp=111) CALCIUM (BEAKER) (test 8.8 mg/dL 8.4-10.2 puga=805) EGFR (BEAKER) (test 40 mL/min/1.73 sq m ESTIMATED GFR IS NOT whdd=1759) ACCURATE CREATININE CLEARANCE IN PREDICTING GLOMERULAR FILTRATION RATE. ESTIMATED GFR IS NOT APPLICABLE FOR DIALYSIS PATIENTS. BLOOD GAS, [id number] 18:24:00 Test Item Value Reference Range Comments PH ARTERIAL (BEAKER) (test tqre=743) 7.34 7.35-7.45 PCO2 ARTERIAL (BEAKER) (test xapl=268) 51 mmHg 35-45 PO2 ARTERIAL (BEAKER) (test ffyl=751) 57 mmHg 80-90 O2 SATURATION ARTERIAL (BEAKER) (test jmhe=690) 87.5 % 96.0-97.0 HCO3 ARTERIAL (BEAKER) (test yxvo=213) 27 mmol/L 21-29 BASE EXCESS ARTERIAL (BEAKER) (test jing=781) 1.0 mmol/L -2.0-3.0 PATIENT TEMPERATURE (BEAKER) (test lulh=6923) 37.2 C FIO2 (BEAKER) (test yxnf=8333) 40.0 % POCT-GLUCOSE [id number] 17:14:00 Test Item Value Reference Range Comments POC-GLUCOSE METER (BEAKER) 299 mg/dL 70-110 TESTED AT [place] [address] [address] (test iodr=3677) [facility] [address] LACTIC ACID, ARTERIAL, WHOLE [id number] 16:37:00 Test Item Value Reference Range Comments LACTATE BLOOD ARTERIAL (2) 2.9 mmol/L 0.5-2.2 Specimen slightly hemolyzed (BEAKER) (test acds=2855) Effective 08/06/2015: Units/Reference Range ChangeNew: 0.5-2.2 mmol/L Previous: 5 -20 mg/[id number] 15:45:00 Test Item Value Reference Range Comments GLUCOSE RANDOM (BEAKER) (test hmkm=169) 439 mg/dL 70-105 If last glucose was less than 500, may do bedside glucose instead of serum glucose.POCT-GLUCOSE [id number] 15:21:00 Test Item Value Reference Range Comments POC-GLUCOSE METER (BEAKER) 374 mg/dL 70-110 Notified PAULA BERGER/TESTED AT [facility] (test ueis=6428) [facility] [address] [facility] [address] [id number] 15:14:00 Test Item Value Reference Range Comments POTASSIUM (BEAKER) (test grjl=248) 4.0 meq/L 3.5-5.1 If last glucose was less than 500, may do bedside glucose instead of serum glucose.URINALYSIS W/ [id number] 15:03:00 Test Item Value Reference Range Comments COLOR (BEAKER) (test czba=646) Yellow CLARITY (BEAKER) (test wrch=764) Clear SPECIFIC GRAVITY UA (BEAKER) (test apxh=405) 1.050 1.001-1.035 PH UA (BEAKER) (test ztsd=248) 5.5 5.0-8.0 PROTEIN UA (BEAKER) (test zhuu=394) 50 mg/dL Negative GLUCOSE UA (BEAKER) (test pmst=061) >1000 mg/dL Negative KETONES UA (BEAKER) (test fowk=749) Negative Negative BILIRUBIN UA (BEAKER) (test ifkt=071) Negative Negative BLOOD UA (BEAKER) (test vrkm=304) Moderate Negative NITRITE UA (BEAKER) (test osbg=889) Negative Negative LEUKOCYTE ESTERASE UA (BEAKER) (test ckoe=012) Negative Negative UROBILINOGEN UA (BEAKER) (test nxkt=710) 0.2 mg/dL 0.2-1.0 RBC UA (BEAKER) (test fdmm=147) 16 /HPF WBC UA (BEAKER) (test iguf=265) 11 /HPF BACTERIA (BEAKER) (test amsc=572) Rare MUCUS (BEAKER) (test tozq=6288) Rare SQUAMOUS EPITHELIAL (BEAKER) (test ogik=914) 1 /HPF SOURCE(BEAKER) (test vdze=2826) U/S, RENAL, [id number] 14:36:00Reason for exam:->acute renal failure , hydronephrosisShould [...] MDReport Verified Date/Time: 07/18/2017 14:36:40 Reading Location: [address] Ultrasound Reading Room Electronically signed by: VIRGINIA DIAZ M.D. on 02:36 PMT4, [id number] 14:31:00 Test Item Value Reference Range Comments FREE T4 (BEAKER) (test vjby=324) 1.13 ng/dL 0.70-1.48 BLOOD GAS, [id number] 14:01:00 Test Item Value Reference Range Comments PH ARTERIAL (BEAKER) (test hpez=203) 7.42 7.35-7.45 PCO2 ARTERIAL (BEAKER) (test misi=240) 42 mmHg 35-45 PO2 ARTERIAL (BEAKER) (test uehp=594) 66 mmHg 80-90 O2 SATURATION ARTERIAL (BEAKER) (test lguu=445) 93.5 % 96.0-97.0 HCO3 ARTERIAL (BEAKER) (test xcik=830) 27 mmol/L 21-29 BASE EXCESS ARTERIAL (BEAKER) (test fjdd=350) 2.1 mmol/L -2.0-3.0 PATIENT TEMPERATURE (BEAKER) (test sojx=1727) 36.9 C FIO2 (BEAKER) (test buxw=1448) 40.0 % HEMOGLOBIN [id number] 13:57:00 Test Item Value Reference Range Comments HEMOGLOBIN A1C (BEAKER) (test btyu=427) 9.8 % 4.3-6.1 SODIUM, RANDOM [id number] 13:49:00 Test Item Value Reference Range Comments SODIUM URINE (BEAKER) (test deew=551) 22 meq/L Reference Range: No NormalsTSH/FREE T4 IF [id number] 13:49:00 Test Item Value Reference Range Comments THYROID STIMULATING HORMONE (BEAKER) (test 0.27 uIU/mL 0.35-4.94 qktp=816) POCT-GLUCOSE [id number] 13:47:00 Test Item Value Reference Range Comments POC-GLUCOSE METER (BEAKER) 398 mg/dL 70-110 TESTED AT [facility] [address] (test cond=7615) [facility] [address] CREATININE, RANDOM [id number] 13:43:00 Test Item Value Reference Range Comments CREATININE URINE (BEAKER) (test vdmk=508) 85.4 mg/dL Reference Range: No NormalsPROTEIN, RANDOM [id number] 13:43:00 Test Item Value Reference Range Comments PROTEIN, URINE (BEAKER) (test wuxw=5780) 75 mg/dL 0-14 B-TYPE NATRIURETIC FACTOR (BNP)2017-07-18 13:17:00 Test Item Value Reference Range Comments B-TYPE NATRIURETIC PEPTIDE (BEAKER) (test 1847 pg/mL 0-100 uvhb=051) BASIC METABOLIC [id number] 13:13:00 Test Item Value Reference Range Comments SODIUM (BEAKER) (test 138 meq/L 136-145 ifea=294) POTASSIUM (BEAKER) (test 4.8 meq/L 3.5-5.1 rgia=153) CHLORIDE (BEAKER) (test 101 meq/L 98-107 bwjn=371) CO2 (BEAKER) (test 26 meq/L 22-29 iyub=864) BLOOD UREA NITROGEN 21 mg/dL 7-21 (BEAKER) (test rpot=690) CREATININE (BEAKER) (test 1.62 mg/dL 0.57-1.25 blqc=605) GLUCOSE RANDOM (BEAKER) 527 mg/dL 70-105 (test maqk=639) CALCIUM (BEAKER) (test 8.9 mg/dL 8.4-10.2 bfih=527) EGFR (BEAKER) (test 38 mL/min/1.73 sq m ESTIMATED GFR IS NOT uzkr=0489) ACCURATE CREATININE CLEARANCE IN PREDICTING GLOMERULAR FILTRATION RATE. ESTIMATED GFR IS NOT APPLICABLE FOR DIALYSIS PATIENTS. If last glucose was less than 500, may do bedside glucose instead of serum glucose.[id number] 13:12:00 Test Item Value Reference Range Comments MAGNESIUM (BEAKER) (test gazc=816) 1.9 mg/dL 1.6-2.6 If last glucose was less than 500, may do bedside glucose instead of serum glucose.[id number] 13:12:00 Test Item Value Reference Range Comments LIPASE (BEAKER) (test tlvz=378) 106 U/L 8-78 If last glucose was less than 500, may do bedside glucose instead of serum glucose.[id number] 13:11:00 Test Item Value Reference Range Comments PHOSPHORUS (BEAKER) (test nlam=577) 3.3 mg/dL 2.3-4.7 If last glucose was less than 500, may do bedside glucose instead of serum glucose.POCT-GLUCOSE [id number] 12:49:00 Test Item Value Reference Range Comments POC-GLUCOSE METER (BEAKER) 498 mg/dL 70-110 Notified PAULA BERGER/TESTED AT [facility] (test fhua=2467) [address] [facility] [id number] LACTIC ACID, VENOUS, WHOLE [id number] 12:11:00 Test Item Value Reference Range Comments LACTATE BLOOD VENOUS (2) (BEAKER) (test 3.8 mmol/L 0.5-2.2 yvih=8333) Effective 08/06/2015: Units/Reference Range ChangeNew: 0.5-2.2 mmol/L Previous: 5 -20 mg/[id number] 12:10:00 Test Item Value Reference Range Comments PROCALCITONIN (BEAKER) (test bdfg=4131) 3.80 ng/mL <0.05 SEPSIS RISK (ng/mL)Low: 0.05-0.50Intermediate: 0.51-2.00High: & gt;=2.01CBC W/PLT COUNT & AUTO [id number] 12:10:00 Test Item Value Reference Range Comments WHITE BLOOD CELL COUNT (BEAKER) (test syen=500) 11.2 K/ L 3.5-10.5 RED BLOOD CELL COUNT (BEAKER) (test tseg=166) 3.98 M/ L 3.93-5.22 HEMOGLOBIN (BEAKER) (test yakw=222) 12.0 GM/DL 11.2-15.7 HEMATOCRIT (BEAKER) (test sjyc=620) 38.5 % 34.1-44.9 MEAN CORPUSCULAR VOLUME (BEAKER) (test lawn=130) 96.7 fL 79.4-94.8 MEAN CORPUSCULAR HEMOGLOBIN (BEAKER) (test 30.2 pg 25.6-32.2 doov=920) MEAN CORPUSCULAR HEMOGLOBIN CONC (BEAKER) (test 31.2 GM/DL 32.2-35.5 wchf=512) RED CELL DISTRIBUTION WIDTH (BEAKER) (test 13.1 % 11.7-14.4 epgl=815) PLATELET COUNT (BEAKER) (test iivl=340) 222 K/CU MM 150-450 MEAN PLATELET VOLUME (BEAKER) (test kudt=421) 10.2 fL 9.4-12.3 NUCLEATED RED BLOOD CELLS (BEAKER) (test 0 /100 WBC 0-0 cxdq=725) NEUTROPHILS RELATIVE PERCENT (BEAKER) (test 96 % ctpp=782) LYMPHOCYTES RELATIVE PERCENT (BEAKER) (test 2 % znpf=287) MONOCYTES RELATIVE PERCENT (BEAKER) (test 2 % izmi=160) EOSINOPHILS RELATIVE PERCENT (BEAKER) (test 0 % zysx=431) BASOPHILS RELATIVE PERCENT (BEAKER) (test 0 % dccf=105) NEUTROPHILS ABSOLUTE COUNT (BEAKER) (test 10.72 K/ L 1.56-6.13 zhvc=263) LYMPHOCYTES ABSOLUTE COUNT (BEAKER) (test 0.24 K/ L 1.18-3.74 jlnp=436) MONOCYTES ABSOLUTE COUNT (BEAKER) (test 0.22 K/ L 0.24-0.36 ypqi=446) EOSINOPHILS ABSOLUTE COUNT (BEAKER) (test 0.00 K/ L 0.04-0.36 cxlk=368) BASOPHILS ABSOLUTE COUNT (BEAKER) (test 0.01 K/ L 0.01-0.08 wovk=893) IMMATURE GRANULOCYTES-RELATIVE PERCENT (BEAKER) 0 % 0-1 (test zmzg=2535) BASIC METABOLIC [id number] 11:35:00 Test Item Value Reference Range Comments SODIUM (BEAKER) (test 136 meq/L 136-145 nbsb=585) POTASSIUM (BEAKER) (test 4.8 meq/L 3.5-5.1 enya=801) CHLORIDE (BEAKER) (test 99 meq/L 98-107 ysit=346) CO2 (BEAKER) (test 25 meq/L 22-29 kdjv=665) BLOOD UREA NITROGEN 19 mg/dL 7-21 (BEAKER) (test tgke=488) CREATININE (BEAKER) (test 1.61 mg/dL 0.57-1.25 hvvf=568) GLUCOSE RANDOM (BEAKER) 568 mg/dL 70-105 (test upak=779) CALCIUM (BEAKER) (test 8.9 mg/dL 8.4-10.2 rfxu=679) EGFR (BEAKER) (test 38 mL/min/1.73 sq m ESTIMATED GFR IS NOT bujo=5938) ACCURATE CREATININE CLEARANCE IN PREDICTING GLOMERULAR FILTRATION RATE. ESTIMATED GFR IS NOT APPLICABLE FOR DIALYSIS PATIENTS. BLOOD GAS, [id number] 10:57:00 Test Item Value Reference Range Comments PH ARTERIAL (BEAKER) (test ggwj=377) 7.36 7.35-7.45 PCO2 ARTERIAL (BEAKER) (test eqfr=505) 47 mmHg 35-45 PO2 ARTERIAL (BEAKER) (test dzxu=962) 78 mmHg 80-90 O2 SATURATION ARTERIAL (BEAKER) (test ubvl=656) 95.0 % 96.0-97.0 HCO3 ARTERIAL (BEAKER) (test iwft=965) 26 mmol/L 21-29 BASE EXCESS ARTERIAL (BEAKER) (test fnqk=976) 0.4 mmol/L -2.0-3.0 PATIENT TEMPERATURE (BEAKER) (test veof=6389) 37.0 C FIO2 (BEAKER) (test ixiy=3361) 100.0 % RAD, CHEST, 1 VIEW, NON [id number] 10:38:00Reason for exam:->IABP Should this be performed [...] MDReport Verified Date/Time: 07/18/2017 10:38:31 Reading Location: [facility] Radiology Reading Room CBC W/PLT COUNT & AUTO [id number] 10: 01:00 Test Item Value Reference Range Comments WHITE BLOOD CELL COUNT (BEAKER) (test tcus=660) 12.8 K/ L 3.5-10.5 RED BLOOD CELL COUNT (BEAKER) (test ouvz=974) 3.95 M/ L 3.93-5.22 HEMOGLOBIN (BEAKER) (test zuab=608) 11.9 GM/DL 11.2-15.7 HEMATOCRIT (BEAKER) (test wimh=344) 38.3 % 34.1-44.9 MEAN CORPUSCULAR VOLUME (BEAKER) (test jhrk=754) 97.0 fL 79.4-94.8 MEAN CORPUSCULAR HEMOGLOBIN (BEAKER) (test 30.1 pg 25.6-32.2 swvx=049) MEAN CORPUSCULAR HEMOGLOBIN CONC (BEAKER) (test 31.1 GM/DL 32.2-35.5 sjbf=669) RED CELL DISTRIBUTION WIDTH (BEAKER) (test 13.1 % 11.7-14.4 ymil=684) PLATELET COUNT (BEAKER) (test soyd=416) 231 K/CU MM 150-450 MEAN PLATELET VOLUME (BEAKER) (test aozb=402) 10.4 fL 9.4-12.3 NUCLEATED RED BLOOD CELLS (BEAKER) (test 0 /100 WBC 0-0 psrb=157) NEUTROPHILS RELATIVE PERCENT (BEAKER) (test 91 % kwpz=139) LYMPHOCYTES RELATIVE PERCENT (BEAKER) (test 4 % drll=241) MONOCYTES RELATIVE PERCENT (BEAKER) (test 4 % appe=639) EOSINOPHILS RELATIVE PERCENT (BEAKER) (test 0 % mgwi=683) BASOPHILS RELATIVE PERCENT (BEAKER) (test 0 % dwdk=543) NEUTROPHILS ABSOLUTE COUNT (BEAKER) (test 11.66 K/ L 1.56-6.13 fdoz=482) LYMPHOCYTES ABSOLUTE COUNT (BEAKER) (test 0.53 K/ L 1.18-3.74 fkcn=966) MONOCYTES ABSOLUTE COUNT (BEAKER) (test 0.49 K/ L 0.24-0.36 wvxl=702) EOSINOPHILS ABSOLUTE COUNT (BEAKER) (test 0.01 K/ L 0.04-0.36 kcva=508) BASOPHILS ABSOLUTE COUNT (BEAKER) (test 0.03 K/ L 0.01-0.08 tvdu=827) IMMATURE GRANULOCYTES-RELATIVE PERCENT (BEAKER) 0 % 0-1 (test pazd=6896) COMPREHENSIVE METABOLIC [id number] 09:38:00 Test Item Value Reference Range Comments TOTAL PROTEIN (BEAKER) 6.7 gm/dL 6.0-8.3 Specimen slightly (test zcnd=833) hemolyzed ALBUMIN (BEAKER) (test 3.5 g/dL 3.5-5.0 Specimen slightly rusv=5122) hemolyzed ALKALINE PHOSPHATASE 70 U/L 40-150 (BEAKER) (test gmwx=869) BILIRUBIN TOTAL (BEAKER) 0.6 mg/dL 0.2-1.2 Specimen slightly (test eetg=365) hemolyzed SODIUM (BEAKER) (test 134 meq/L 136-145 ifho=928) POTASSIUM (BEAKER) (test 4.7 meq/L 3.5-5.1 Specimen slightly efdg=721) hemolyzed CHLORIDE (BEAKER) (test 98 meq/L 98-107 tjme=407) CO2 (BEAKER) (test 25 meq/L 22-29 ycnc=576) BLOOD UREA NITROGEN 19 mg/dL 7-21 (BEAKER) (test dqul=337) CREATININE (BEAKER) (test 1.57 mg/dL 0.57-1.25 Specimen slightly jbpm=183) hemolyzed GLUCOSE RANDOM (BEAKER) 652 mg/dL 70-105 (test zeef=078) CALCIUM (BEAKER) (test 8.7 mg/dL 8.4-10.2 vuft=920) AST (SGOT) (BEAKER) (test 343 U/L 5-34 Specimen slightly tuna=454) hemolyzed ALT (SGPT) (BEAKER) (test 89 U/L 6-55 Specimen slightly dqlp=011) hemolyzed EGFR (BEAKER) (test 39 mL/min/1.73 sq m ESTIMATED GFR IS NOT nfwp=1755) ACCURATE CREATININE CLEARANCE IN PREDICTING GLOMERULAR FILTRATION RATE. ESTIMATED GFR IS NOT APPLICABLE FOR DIALYSIS PATIENTS. [id number] 09:09:00 Test Item Value Reference Range Comments ACTIVATED CLOTTING TIME 252 sec TESTED AT [facility] [address] [facility] (BEAKER) (test orzw=632) [place] [address] PROTHROMBIN [id number] 09:01:00 Test Item Value Reference Range Comments PROTIME (BEAKER) (test tpyf=035) 18.3 seconds 11.7-14.7 INR (BEAKER) (test ysjg=832) 1.5 <=5.9 RECOMMENDED COUMADIN/WARFARIN INR THERAPY RANGESSTANDARD DOSE: 2.0 - 3.0 Includes: PROPHYLAXIS forvenous thrombosis, systemic embolization; TREATMENT for venous thrombosis and/or pulmonary embolus.HIGH RISK: Target INR is 2.5-3.5 for patients with mechanical heart valves.[id number] 08:09:00 Test Item Value Reference Range Comments ACTIVATED CLOTTING TIME 213 sec TESTED AT [address] ([facility]) (test boln=541) [place] [address] [id number] 08:09:00 Test Item Value Reference Range Comments ACTIVATED CLOTTING TIME 263 sec TESTED AT [address] ([facility]) (test djma=587) [place] [address] BLOOD GAS, [id number] 07:50:00 Test Item Value Reference Range Comments PH ARTERIAL (BEAKER) (test ukpd=803) 7.20 7.35-7.45 PCO2 ARTERIAL (BEAKER) (test xfgn=801) 65 mmHg 35-45 PO2 ARTERIAL (BEAKER) (test swcv=486) 133 mmHg 80-90 O2 SATURATION ARTERIAL (BEAKER) (test rhnt=285) 98.1 % 96.0-97.0 HCO3 ARTERIAL (BEAKER) (test qrnx=494) 25 mmol/L 21-29 BASE EXCESS ARTERIAL (BEAKER) (test qnlc=780) -4.3 mmol/L -2.0-3.0 PATIENT TEMPERATURE (BEAKER) (test quuv=0645) 36.0 C FIO2 (BEAKER) (test vyul=3497) 100.0 % POCT-GLUCOSE [id number] 12:27:00 Test Item Value Reference Range Comments POC-GLUCOSE METER (BEAKER) 156 mg/dL 70-110 TESTED AT [address] (test agei=3546) [place] [address] BASIC METABOLIC [id number] 05:45:00 Test Item Value Reference Range Comments SODIUM (BEAKER) (test 141 meq/L 136-145 ygjl=359) POTASSIUM (BEAKER) (test 4.1 meq/L 3.5-5.1 muwb=333) CHLORIDE (BEAKER) (test 106 meq/L 98-107 yltn=283) CO2 (BEAKER) (test 26 meq/L 22-29 rchw=913) BLOOD UREA NITROGEN 11 mg/dL 7-21 (BEAKER) (test falw=509) CREATININE (BEAKER) (test 0.83 mg/dL 0.57-1.25 tyfu=123) GLUCOSE RANDOM (BEAKER) 139 mg/dL 70-105 (test oasp=023) CALCIUM (BEAKER) (test 8.5 mg/dL 8.4-10.2 uyce=161) EGFR (BEAKER) (test 83 mL/min/1.73 sq m ESTIMATED GFR IS NOT kbpz=3421) ACCURATE CREATININE CLEARANCE IN PREDICTING GLOMERULAR FILTRATION RATE. ESTIMATED GFR IS NOT APPLICABLE FOR DIALYSIS PATIENTS. POCT-GLUCOSE [id number] 21:10:00 Test Item Value Reference Range Comments POC-GLUCOSE METER (BEAKER) 103 mg/dL 70-110 TESTED AT [address] (test ftls=8028) [place] [address] POCT-GLUCOSE [id number] 17:51:00 Test Item Value Reference Range Comments POC-GLUCOSE METER (BEAKER) 138 mg/dL 70-110 TESTED AT [address] (test fbor=8298) [place] [address] POCT-GLUCOSE [id number] 12:45:00 Test Item Value Reference Range Comments POC-GLUCOSE METER (BEAKER) 294 mg/dL 70-110 TESTED AT [address] (test kujv=7386) [place] [address] CBC WITH PLATELET COUNT + MANUAL [id number] 07:04:00 Test Item Value Reference Range Comments WHITE BLOOD CELL COUNT (BEAKER) (test elch=855) 10.7 K/ L 4.0-10.0 RED BLOOD CELL COUNT (BEAKER) (test zyhs=069) 3.91 M/ L 4.00-5.00 HEMOGLOBIN (BEAKER) (test gzgt=667) 12.9 GM/DL 12.0-15.0 HEMATOCRIT (BEAKER) (test lbnu=523) 39.0 % 36.0-45.0 MEAN CORPUSCULAR VOLUME (BEAKER) (test yydm=896) 99.6 fL 82.0-99.0 MEAN CORPUSCULAR HEMOGLOBIN (BEAKER) (test 32.9 pg 27.0-33.0 lfzp=304) MEAN CORPUSCULAR HEMOGLOBIN CONC (BEAKER) (test 33.0 GM/DL 32.0-36.0 donu=409) RED CELL DISTRIBUTION WIDTH (BEAKER) (test 12.8 % 10.3-14.2 nedz=716) PLATELET COUNT (BEAKER) (test krbu=948) 251 K/CU MM 150-430 MEAN PLATELET VOLUME (BEAKER) (test qjxn=314) 8.1 fL 6.5-10.5 NUCLEATED RED BLOOD CELLS (BEAKER) (test 0 /100 WBC 0-0 macf=193) NEUTROPHILS RELATIVE PERCENT (BEAKER) (test 80 % ixhz=429) LYMPHOCYTES RELATIVE PERCENT (BEAKER) (test 14 % uggl=511) MONOCYTES RELATIVE PERCENT (BEAKER) (test 6 % tbtg=130) EOSINOPHILS RELATIVE PERCENT (BEAKER) (test 0 % kfco=504) BASOPHILS RELATIVE PERCENT (BEAKER) (test 0 % qltz=542) NEUTROPHILS ABSOLUTE COUNT (BEAKER) (test 8.55 K/ L 1.80-8.00 ipoj=232) LYMPHOCYTES ABSOLUTE COUNT (BEAKER) (test 1.46 K/ L 1.48-4.50 hihf=782) MONOCYTES ABSOLUTE COUNT (BEAKER) (test 0.60 K/ L 0.00-1.30 gfgl=532) EOSINOPHILS ABSOLUTE COUNT (BEAKER) (test 0.05 K/ L 0.00-0.50 qqrh=153) BASOPHILS ABSOLUTE COUNT (BEAKER) (test 0.02 K/ L 0.00-0.20 azgz=324) 0.00(MANUAL DIFFERENTIAL)[id number] 07:04:00 Test Item Value Reference Range Comments TOTAL COUNTED (BEAKER) (test skvc=9787) PLT MORPHOLOGY (BEAKER) (test zpql=118) Normal RBC MORPHOLOGY (BEAKER) (test cupe=470) Normal ATYPICAL LYMPHS(BEAKER) (test yoyy=0868) Present BASIC METABOLIC [id number] 05:05:00 Test Item Value Reference Range Comments SODIUM (BEAKER) (test 140 meq/L 136-145 pjut=915) POTASSIUM (BEAKER) (test 3.8 meq/L 3.5-5.1 ptln=821) CHLORIDE (BEAKER) (test 107 meq/L 98-107 lerg=235) CO2 (BEAKER) (test 26 meq/L 22-29 otwi=298) BLOOD UREA NITROGEN 13 mg/dL 7-21 (BEAKER) (test gsty=305) CREATININE (BEAKER) (test 0.80 mg/dL 0.57-1.25 khdo=055) GLUCOSE RANDOM (BEAKER) 177 mg/dL 70-105 (test ibof=304) CALCIUM (BEAKER) (test 8.3 mg/dL 8.4-10.2 figa=916) EGFR (BEAKER) (test 86 mL/min/1.73 sq m ESTIMATED GFR IS NOT gkad=1145) ACCURATE CREATININE CLEARANCE IN PREDICTING GLOMERULAR FILTRATION RATE. ESTIMATED GFR IS NOT APPLICABLE FOR DIALYSIS PATIENTS. [id number] 04:48:00 Test Item Value Reference Range Comments PROTIME (BEAKER) (test hnru=340) 13.0 seconds 11.7-14.7 INR (BEAKER) (test uxql=119) 1.0 <=5.9 PARTIAL THROMBOPLASTIN TIME (BEAKER) (test 31.8 seconds 22.5-36.0 bgfx=469) RECOMMENDED COUMADIN/WARFARIN INR THERAPY RANGESSTANDARD DOSE: 2.0 - 3.0 Includes: PROPHYLAXIS forvenous thrombosis, systemic embolization; TREATMENT for venous thrombosis and/or pulmonary embolus.HIGH RISK: Target INR is 2.5-3.5 for patients with mechanical heart valves.POCT-GLUCOSE [id number] 22:11:00 Test Item Value Reference Range Comments POC-GLUCOSE METER (BEAKER) 200 mg/dL 70-110 TESTED AT [facility] [address] [facility] (test fmpo=0097) [facility] [address] POCT-GLUCOSE [id number] 17:13:00 Test Item Value Reference Range Comments POC-GLUCOSE METER (BEAKER) 225 mg/dL 70-110 TESTED AT [facility] [address] [facility] (test fyuo=8402) [facility] [address] POCT-GLUCOSE [id number] 12:22:00 Test Item Value Reference Range Comments POC-GLUCOSE METER (BEAKER) 309 mg/dL 70-110 Notified PAULA BERGER/TESTED AT [facility] (test fndx=4293) [address] [facility] [address] URINALYSIS W/ [id number] 12:09:00 Test Item Value Reference Range Comments COLOR (BEAKER) (test zcvc=549) Yellow CLARITY (BEAKER) (test vqrg=168) Clear SPECIFIC GRAVITY UA (BEAKER) (test wjpa=589) 1.035 1.001-1.035 PH UA (BEAKER) (test ypst=959) 5.0 5.0-8.0 PROTEIN UA (BEAKER) (test rlsz=466) Negative Negative GLUCOSE UA (BEAKER) (test cawi=387) 150 mg/dL Negative KETONES UA (BEAKER) (test djrb=066) Negative Negative BILIRUBIN UA (BEAKER) (test cemn=647) Negative Negative BLOOD UA (BEAKER) (test oeuf=234) Small Negative NITRITE UA (BEAKER) (test gekm=680) Negative Negative LEUKOCYTE ESTERASE UA (BEAKER) (test dzpu=612) Negative Negative UROBILINOGEN UA (BEAKER) (test stye=641) 0.2 mg/dL 0.2-1.0 RBC UA (BEAKER) (test zbgr=889) 6 /HPF WBC UA (BEAKER) (test bwoc=929) 1 /HPF MUCUS (BEAKER) (test hjvj=9497) Rare SQUAMOUS EPITHELIAL (BEAKER) (test ztee=895) 6 /HPF HYALINE CASTS (BEAKER) (test vabq=693) 2 /LPF SOURCE(BEAKER) (test rfzr=3352) POCT-GLUCOSE [id number] 07:58:00 Test Item Value Reference Range Comments POC-GLUCOSE METER (BEAKER) 236 mg/dL 70-110 TESTED AT [place] [address] [address] (test keew=8991) [facility] [address] BASIC METABOLIC [id number] 04:10:00 Test Item Value Reference Range Comments SODIUM (BEAKER) (test 138 meq/L 136-145 vcef=193) POTASSIUM (BEAKER) (test 4.2 meq/L 3.5-5.1 mlzf=034) CHLORIDE (BEAKER) (test 107 meq/L 98-107 fsuz=292) CO2 (BEAKER) (test 22 meq/L 22-29 umdv=965) BLOOD UREA NITROGEN 20 mg/dL 7-21 (BEAKER) (test ghps=910) CREATININE (BEAKER) (test 1.00 mg/dL 0.57-1.25 dlmv=745) GLUCOSE RANDOM (BEAKER) 246 mg/dL 70-105 (test gjhq=330) CALCIUM (BEAKER) (test 8.8 mg/dL 8.4-10.2 cqhe=929) EGFR (BEAKER) (test 67 mL/min/1.73 sq m ESTIMATED GFR IS NOT hjhi=0386) ACCURATE CREATININE CLEARANCE IN PREDICTING GLOMERULAR FILTRATION RATE. ESTIMATED GFR IS NOT APPLICABLE FOR DIALYSIS PATIENTS. [id number] 04:03:00 Test Item Value Reference Range Comments PROTIME (BEAKER) (test lque=275) 12.8 seconds 11.7-14.7 INR (BEAKER) (test dwzp=719) 1.0 <=5.9 PARTIAL THROMBOPLASTIN TIME (BEAKER) (test 29.6 seconds 22.5-36.0 iall=048) RECOMMENDED COUMADIN/WARFARIN INR THERAPY RANGESSTANDARD DOSE: 2.0 - 3.0 Includes: PROPHYLAXIS forvenous thrombosis, systemic embolization; TREATMENT for venous thrombosis and/or pulmonary embolus.HIGH RISK: Target INR is 2.5-3.5 for patients with mechanical heart valves.CBC WITH PLATELET COUNT + MANUAL [id number] 03:58:00 Test Item Value Reference Range Comments WHITE BLOOD CELL COUNT (BEAKER) (test tzgk=244) 14.3 K/ L 4.0-10.0 RED BLOOD CELL COUNT (BEAKER) (test ysca=370) 4.03 M/ L 4.00-5.00 HEMOGLOBIN (BEAKER) (test vewt=005) 13.1 GM/DL 12.0-15.0 HEMATOCRIT (BEAKER) (test amhu=122) 39.7 % 36.0-45.0 MEAN CORPUSCULAR VOLUME (BEAKER) (test swpz=746) 98.5 fL 82.0-99.0 MEAN CORPUSCULAR HEMOGLOBIN (BEAKER) (test 32.6 pg 27.0-33.0 opwv=511) MEAN CORPUSCULAR HEMOGLOBIN CONC (BEAKER) (test 33.1 GM/DL 32.0-36.0 wxta=249) RED CELL DISTRIBUTION WIDTH (BEAKER) (test 12.9 % 10.3-14.2 kgxz=205) PLATELET COUNT (BEAKER) (test qsbm=831) 271 K/CU MM 150-430 MEAN PLATELET VOLUME (BEAKER) (test zjhu=652) 7.7 fL 6.5-10.5 NUCLEATED RED BLOOD CELLS (BEAKER) (test 0 /100 WBC 0-0 rlma=072) NEUTROPHILS RELATIVE PERCENT (BEAKER) (test 87 % pdzp=026) LYMPHOCYTES RELATIVE PERCENT (BEAKER) (test 7 % faxq=160) MONOCYTES RELATIVE PERCENT (BEAKER) (test 6 % fbvl=857) EOSINOPHILS RELATIVE PERCENT (BEAKER) (test 0 % tokf=439) BASOPHILS RELATIVE PERCENT (BEAKER) (test 0 % cuhy=499) NEUTROPHILS ABSOLUTE COUNT (BEAKER) (test 12.40 K/ L 1.80-8.00 ssof=984) LYMPHOCYTES ABSOLUTE COUNT (BEAKER) (test 1.06 K/ L 1.48-4.50 coqo=614) MONOCYTES ABSOLUTE COUNT (BEAKER) (test 0.81 K/ L 0.00-1.30 yctx=149) EOSINOPHILS ABSOLUTE COUNT (BEAKER) (test 0.01 K/ L 0.00-0.50 cbzx=156) BASOPHILS ABSOLUTE COUNT (BEAKER) (test 0.03 K/ L 0.00-0.20 cswe=114) 0.000.530.000.000.520.000.000.000.00POCT-GLUCOSE [id number] 22:17:00 Test Item Value Reference Range Comments POC-GLUCOSE METER (BEAKER) 260 mg/dL 70-110 TESTED AT [address] (test esis=5131) [facility] [address] POCT-GLUCOSE [id number] 12:11:00 Test Item Value Reference Range Comments POC-GLUCOSE METER (BEAKER) 278 mg/dL 70-110 TESTED AT [address] (test cppm=9855) [facility] [address] HEMOGLOBIN [id number] 10:46:00 Test Item Value Reference Range Comments HEMOGLOBIN A1C (BEAKER) (test pkkw=984) 9.7 % 4.3-6.1 DC\S\Delta Check\S\NONEPOCT-GLUCOSE [id number] 07:15:00 Test Item Value Reference Range Comments POC-GLUCOSE METER (BEAKER) 283 mg/dL 70-110 TESTED AT [facility] [address] (test kmpl=2797) [facility] [address] BASIC METABOLIC [id number] 04:43:00 Test Item Value Reference Range Comments SODIUM (BEAKER) (test 136 meq/L 136-145 gljb=455) POTASSIUM (BEAKER) (test 4.0 meq/L 3.5-5.1 gzhs=566) CHLORIDE (BEAKER) (test 102 meq/L 98-107 nkyq=549) CO2 (BEAKER) (test 27 meq/L 22-29 cuvf=131) BLOOD UREA NITROGEN 18 mg/dL 7-21 (BEAKER) (test dsev=960) CREATININE (BEAKER) (test 0.95 mg/dL 0.57-1.25 agkz=898) GLUCOSE RANDOM (BEAKER) 256 mg/dL 70-105 (test jcqi=306) CALCIUM (BEAKER) (test 9.0 mg/dL 8.4-10.2 mgyd=139) EGFR (BEAKER) (test 71 mL/min/1.73 sq m ESTIMATED GFR IS NOT yhhc=6555) ACCURATE CREATININE CLEARANCE IN PREDICTING GLOMERULAR FILTRATION RATE. ESTIMATED GFR IS NOT APPLICABLE FOR DIALYSIS PATIENTS. CBC WITH PLATELET COUNT + MANUAL [id number] 04:28:00 Test Item Value Reference Range Comments WHITE BLOOD CELL COUNT (BEAKER) (test hdtu=925) 11.6 K/ L 4.0-10.0 RED BLOOD CELL COUNT (BEAKER) (test tano=311) 4.15 M/ L 4.00-5.00 HEMOGLOBIN (BEAKER) (test kcfe=079) 13.3 GM/DL 12.0-15.0 HEMATOCRIT (BEAKER) (test fahq=860) 40.5 % 36.0-45.0 MEAN CORPUSCULAR VOLUME (BEAKER) (test hheg=720) 97.6 fL 82.0-99.0 MEAN CORPUSCULAR HEMOGLOBIN (BEAKER) (test 32.1 pg 27.0-33.0 jacg=255) MEAN CORPUSCULAR HEMOGLOBIN CONC (BEAKER) (test 32.9 GM/DL 32.0-36.0 jdsj=685) RED CELL DISTRIBUTION WIDTH (BEAKER) (test 12.7 % 10.3-14.2 vzfg=221) PLATELET COUNT (BEAKER) (test yvzg=581) 263 K/CU MM 150-430 MEAN PLATELET VOLUME (BEAKER) (test tqgf=276) 8.2 fL 6.5-10.5 NUCLEATED RED BLOOD CELLS (BEAKER) (test 0 /100 WBC 0-0 lvlk=392) NEUTROPHILS RELATIVE PERCENT (BEAKER) (test 90 % jkds=659) LYMPHOCYTES RELATIVE PERCENT (BEAKER) (test 8 % ksxg=389) MONOCYTES RELATIVE PERCENT (BEAKER) (test 2 % qnbi=798) EOSINOPHILS RELATIVE PERCENT (BEAKER) (test 0 % cpar=169) BASOPHILS RELATIVE PERCENT (BEAKER) (test 0 % lcbl=136) NEUTROPHILS ABSOLUTE COUNT (BEAKER) (test 10.40 K/ L 1.80-8.00 dccv=811) LYMPHOCYTES ABSOLUTE COUNT (BEAKER) (test 0.95 K/ L 1.48-4.50 hgjm=957) MONOCYTES ABSOLUTE COUNT (BEAKER) (test 0.20 K/ L 0.00-1.30 wheh=062) EOSINOPHILS ABSOLUTE COUNT (BEAKER) (test 0.02 K/ L 0.00-0.50 rcga=584) BASOPHILS ABSOLUTE COUNT (BEAKER) (test 0.02 K/ L 0.00-0.20 dves=112) 0.00PT/[id number] 04:25:00 Test Item Value Reference Range Comments PROTIME (BEAKER) (test odti=150) 13.7 seconds 11.7-14.7 INR (BEAKER) (test iicc=156) 1.1 <=5.9 PARTIAL THROMBOPLASTIN TIME (BEAKER) (test 32.8 seconds 22.5-36.0 lswb=609) RECOMMENDED COUMADIN/WARFARIN INR THERAPY RANGESSTANDARD DOSE: 2.0 - 3.0 Includes: PROPHYLAXIS forvenous thrombosis, systemic embolization; TREATMENT for venous thrombosis and/or pulmonary embolus.HIGH RISK: Target INR is 2.5-3.5 for patients with mechanical heart valves.POCT-GLUCOSE [id number] 02:47:00 Test Item Value Reference Range Comments POC-GLUCOSE METER (BEAKER) 278 mg/dL 70-110 TESTED AT [facility] [address] [facility] (test euoh=6292) [facility] [address] POCT-GLUCOSE [id number] 22:12:00 Test Item Value Reference Range Comments POC-GLUCOSE METER (BEAKER) 258 mg/dL 70-110 TESTED AT [facility] [address] (test bvzb=1534) [facility] [address] [id number] 15:44:00 Test Item Value Reference Range Comments MAGNESIUM (BEAKER) (test 2.1 mg/dL 1.6-2.6 Specimen slightly hemolyzed joxu=985) [id number] 15:44:00 Test Item Value Reference Range Comments PHOSPHORUS (BEAKER) (test 2.9 mg/dL 2.3-4.7 Specimen slightly hemolyzed ppnl=292) BASIC METABOLIC [id number] 15:44:00 Test Item Value Reference Range Comments SODIUM (BEAKER) (test 137 meq/L 136-145 qcwc=367) POTASSIUM (BEAKER) (test 4.4 meq/L 3.5-5.1 Specimen slightly jsnr=076) hemolyzed CHLORIDE (BEAKER) (test 99 meq/L 98-107 vmok=462) CO2 (BEAKER) (test 27 meq/L 22-29 bukx=335) BLOOD UREA NITROGEN 13 mg/dL 7-21 (BEAKER) (test mceq=425) CREATININE (BEAKER) (test 0.96 mg/dL 0.57-1.25 Specimen slightly tcbb=849) hemolyzed GLUCOSE RANDOM (BEAKER) 250 mg/dL 70-105 (test opnk=783) CALCIUM (BEAKER) (test 9.6 mg/dL 8.4-10.2 pmdr=629) EGFR (BEAKER) (test 70 mL/min/1.73 sq m ESTIMATED GFR IS NOT mtxi=4139) ACCURATE CREATININE CLEARANCE IN PREDICTING GLOMERULAR FILTRATION RATE. ESTIMATED GFR IS NOT APPLICABLE FOR DIALYSIS PATIENTS. CBC WITH PLATELET COUNT + MANUAL [id number] 15:39:00 Test Item Value Reference Range Comments WHITE BLOOD CELL COUNT (BEAKER) (test ljop=569) 9.5 K/ L 4.0-10.0 RED BLOOD CELL COUNT (BEAKER) (test zxtc=944) 4.18 M/ L 4.00-5.00 HEMOGLOBIN (BEAKER) (test gcls=892) 14.0 GM/DL 12.0-15.0 HEMATOCRIT (BEAKER) (test svgo=369) 40.7 % 36.0-45.0 MEAN CORPUSCULAR VOLUME (BEAKER) (test jipv=945) 97.3 fL 82.0-99.0 MEAN CORPUSCULAR HEMOGLOBIN (BEAKER) (test 33.4 pg 27.0-33.0 ekif=322) MEAN CORPUSCULAR HEMOGLOBIN CONC (BEAKER) (test 34.3 GM/DL 32.0-36.0 umwd=723) RED CELL DISTRIBUTION WIDTH (BEAKER) (test 12.6 % 10.3-14.2 pipm=253) PLATELET COUNT (BEAKER) (test svgk=875) 253 K/CU MM 150-430 MEAN PLATELET VOLUME (BEAKER) (test wgkr=977) 8.1 fL 6.5-10.5 NUCLEATED RED BLOOD CELLS (BEAKER) (test 0 /100 WBC 0-0 mevz=892) NEUTROPHILS RELATIVE PERCENT (BEAKER) (test 91 % ysdt=410) LYMPHOCYTES RELATIVE PERCENT (BEAKER) (test 8 % fpof=865) MONOCYTES RELATIVE PERCENT (BEAKER) (test 1 % sydw=671) EOSINOPHILS RELATIVE PERCENT (BEAKER) (test 0 % ekun=141) BASOPHILS RELATIVE PERCENT (BEAKER) (test 0 % gqzc=163) NEUTROPHILS ABSOLUTE COUNT (BEAKER) (test 8.66 K/ L 1.80-8.00 nptt=619) LYMPHOCYTES ABSOLUTE COUNT (BEAKER) (test 0.78 K/ L 1.48-4.50 zfck=095) MONOCYTES ABSOLUTE COUNT (BEAKER) (test 0.07 K/ L 0.00-1.30 iomn=564) EOSINOPHILS ABSOLUTE COUNT (BEAKER) (test 0.01 K/ L 0.00-0.50 qyok=883) BASOPHILS ABSOLUTE COUNT (BEAKER) (test 0.01 K/ L 0.00-0.20 lxqo=761) PT/TMRL0000-12-20 15:39:00 Test Item Value Reference Range Comments PROTIME (BEAKER) (test xajn=124) 12.7 seconds 11.7-14.7 INR (BEAKER) (test jedq=028) 1.0 <=5.9 PARTIAL THROMBOPLASTIN TIME (BEAKER) (test 32.8 seconds 22.5-36.0 rwqn=999) RECOMMENDED COUMADIN/WARFARIN INR THERAPY RANGESSTANDARD DOSE: 2.0 - 3.0 Includes: PROPHYLAXIS forvenous thrombosis, systemic embolization; TREATMENT for venous thrombosis and/or pulmonary embolus.HIGH RISK: Target INR is 2.5-3.5 for patients with mechanical heart valves.
--- NOTE | 2018-08-26 23:43 | ER ---
Nurse's Notes [facility] Name: Christa Ayala Age: 72 yrs Sex: Female : 1945 Arrival Date: 08/26/2018 Time: 21:20 Bed 16 Private MD: Kendrick Stevens Diagnosis: Hematoma right hip. fracture right 5th rib. Hematoma forehead. S/P Fall Presentation: 08/26 21:15 Presenting complaint: Patient states: that was getting up from chair to sit on sofa and fc the next thing she knew she was on the floor. Has knot and bruising to right hit and forehead. Care prior to arrival: None. Mechanism of Injury: Fall from standing position. Trauma event details: Injury occurred in the [facility], Injury occurred: at home. Injury occurred: August 26, 2018 Injury occurred at: 18:15. 21:15 Acuity: SONYA 2 21:15 Method Of Arrival: EMS: [facility] 21:15 Transition of care: patient was not received from another setting of care. Onset of fc symptoms was August 26, 2018 at 20:15. Risk Assessment: Do you want to hurt yourself or someone else? Patient reports no desire to harm self or others. Initial Sepsis Screen: Does the patient meet any 2 criteria? No. Patient's initial sepsis screen is negative. Does the patient have a suspected source of infection? No. Patient's initial sepsis screen is negative. Trauma Activation: Alert Physician: ED Physician; Name: Dominguez; Notified At: 21:19; Arrived At: 21:19 Physician: General Surgeon; Name: ; Notified At: 21:19; Arrived At: Physician: Radiology; Name: Marylu Venegas; Notified At: 21:19; Arrived At: 21:20 Physician: Respiratory; Name: ; Notified At: 21:19; Arrived At: Physician: Lab; Name: ; Notified At: 21:19; Arrived At: Historical: - Allergies: 21:42 Codeine; fc 21:42 Demerol; fc 21:42 Iodine; fc - Home Meds: 21:42 Plavix 75 mg Oral tab 1 tab once daily [Active]; acetaminophen 325 mg Oral tab 1 -2 fc tabs every 4-6 hours for Pain [Active]; pantoprazole 40 mg Oral TbEC 1 tab once daily [Active]; aspirin 81 mg Oral TbEC 1 tab once daily [Active]; atorvastatin 40 mg Oral tab 1 tab nightly [Active]; bumetanide 1 mg Oral tab 1 tab 2 times per day [Active]; carvedilol 6.25 mg Oral tab 1 tab 2 times per day [Active]; digoxin 125 mcg Oral tab 1 tab once daily [Active]; isosorbide mononitrate 30 mg Oral Tb24 1 tab once daily [Active]; escitalopram oxalate 10 mg Oral tab 1 tab once daily [Active]; metformin 1,000 mg Oral tab 1 tab 2 times per day [Active]; milrinone 400 mcg/ml intravenous continuous as directed [Active]; glimepiride 1 mg Oral tab 1 tab once daily [Active]; - PMHx: 21:42 Atrial Fib; COPD; CHF; Diabetes - NIDDM; GERD; Emphysema; enlarged aorta; Hypertension; fc Myocardial infarction; High Cholesterol; - Immunization history: Last tetanus immunization: unknown. - Social history:: Smoking status: Patient/guardian denies using tobacco. - Ebola Screening: : Patient negative for fever greater than or equal to 101.5 degrees Fahrenheit, and additional compatible Ebola Virus Disease symptoms Patient denies exposure to infectious person Patient denies travel to an Ebola-affected area in the 21 days before illness onset. Screenin:15 Abuse screen: Denies threats or abuse. Tuberculosis screening: No symptoms or risk fc factors identified. 21:35 Nutritional screening: No deficits noted. Fall Risk Fall in past 12 months (25 points). fc Secondary diagnosis (15 points) impaired mobility, No IV (0 pts). Ambulatory Aid- None/Bed Rest/Nurse Assist (0 pts). Gait- Weak (10 pts.). Mental Status- Overestimates/Forgets Limitations (15 pts.). Total [place] Fall Scale indicates High Risk Score (45 or more points). Fall prevention measures have been instituted. Side Rails Up X 2 Placed Close to Nursing Station Frequent Obs/Assessments Occuring Family Present and informed to notify staff if the need to leave the bedside As available patient and family educated on Fall Prevention Program and Strategies. Primary Survey: 21:15 NO uncontrolled hemorrhage observed. A: Airway: patent. Breathing/Chest: Respiratory fc pattern: regular, Respiratory effort: spontaneous, unlabored. Circulation: Heart tones present. Pulses: palpable bilateral radial, brachial, femoral, popliteal, posterior tibial and and dorsalis pedis arteries.. Skin color: pink, Skin temperature: warm, dry. Disability Alert. Exposure/Environment: There is no evidence of uncontrolled external bleeding. 22:00 Reassessment Airway Airway Patent Breathing/Chest Respiratory pattern Regular tl2 Respiratory effort Spontaneous Unlabored Circulation Color [place] Disability Alert. Secondary Survey: 21:15 HEENT: Face Other knot to forehead. Gastrointestinal: No deficits noted. : No fc deficits noted. Musculoskeletal: Circulation, motion, and sensation intact. Capillary refill < 3 seconds, Range of motion: Reports pain in right hip. Assessment: 21:20 General: Appears in no apparent distress. uncomfortable, Behavior is calm, cooperative, tl2 appropriate for age. Pain: Complains of pain in left hip. Neuro: Level of Consciousness is awake, alert, obeys commands, Oriented to person, place. Cardiovascular: Denies chest pain. Respiratory: Airway is patent Respiratory effort is even, unlabored, Respiratory pattern is regular, symmetrical. GI: No signs and/or symptoms were reported involving the gastrointestinal system. : No signs and/or symptoms were reported regarding the genitourinary system. Derm: Skin is pink, warm \T\ dry. Musculoskeletal: Range of motion: limited in right hip Swelling hematoma present on left hip. Injury Description: Bruise sustained to forehead. 22:00 Reassessment: Patient appears in no apparent distress at this time. Patient and/or tl2 family updated on plan of care and expected duration. Pain level reassessed. awaiting xray result. 23:00 Reassessment: Patient appears in no apparent distress at this time. Patient and/or tl2 family updated on plan of care and expected duration. Pain level reassessed. 23:50 Reassessment: placed jagdish wrap around hematoma on hip. tl2 08/27 00:06 Reassessment: family verbalized understanding of discharge instructions, need for tl2 follow up. Vital Signs: 08/26 21:15 BP 140 / 90; Pulse 74; Resp 18; Temp 98.7(O); Pulse Ox 98% on R/A; Weight 52.16 kg (R); fc Height 5 ft. 6 in. (167.64 cm) (R); Pain 7/10; 22:15 BP 156 / 102; Pulse 75; Resp 18; Pulse Ox 97% on R/A; tl2 23:22 BP 175 / 106; Pulse 78; Resp 18; Pulse Ox 96% on R/A; tl2 08/27 00:06 BP 171 / 107; Pulse 88; Resp 20; Pulse Ox 100% on R/A; tl2 08/26 21:15 Body Mass Index 18.56 (52.16 kg, 167.64 cm) fc Hillary Coma Score: 08/26 21:15 Eye Response: spontaneous(4). Verbal Response: oriented(5). Motor Response: obeys fc commands(6). Total: 15. 22:15 Eye Response: spontaneous(4). Verbal Response: oriented(5). Motor Response: obeys tl2 commands(6). Total: 15. Trauma Score (Adult): 21:15 Eye Response: spontaneous(1); Verbal Response: oriented(1); Motor Response: obeys fc commands(2); Systolic BP: > 89 mm Hg(4); Respiratory Rate: 10 to 29 per min(4); Hillary Score: 15; Trauma Score: 12 22:15 Eye Response: spontaneous(1); Verbal Response: oriented(1); Motor Response: obeys tl2 commands(2); Systolic BP: > 89 mm Hg(4); Respiratory Rate: 10 to 29 per min(4); [place] Score: 15; Trauma Score: 12 ED Course: 21:15 Patient has correct armband on for positive identification. Bed in low position. Call fc light in reach. Side rails up X2. 21:15 Arm band placed on Patient placed in an exam room, on a stretcher. fc 21:15 Warm blanket given. Pillow given. Pulse ox on. NIBP on. jp3 21:15 Patient maintains SpO2 saturation greater than 95% on room air. Thermoregulation: warm fc blanket given to patient. 21:20 Patient arrived in ED. am2 21:20 Kendrick Stevens MD is Private Physician. am2 21:29 Richa Fong, PAULA is Primary Nurse. tl2 21:32 Triage completed. fc 21:42 Michele Mix MD is Attending Physician. pkl 22:56 CT Traumagram (Head C Spine CAP wo con) In Process Unspecified. EDMS 23:41 Bautista Almonte MD is Referral Physician. pk 08/27 00:06 No provider procedures requiring assistance completed. Patient did not have IV access tl2 during this emergency room visit. Jagdish wrap to right hip. Administered Medications: No medications were administered Intake: 08/26 22:00 PO: 0ml; Total: 0ml. tl2 Outcome: 23:43 Discharge ordered by . pk 08/27 00:06 Discharged to home via wheelchair, with family. tl2 Condition: stable Discharge instructions given to patient, family, Instructed on discharge instructions, follow up and referral plans. Demonstrated understanding of instructions, follow-up care. 00:12 Patient's length of stay in the Emergency Department was greater than 2 hours. tl2 00:12 Patient left the ED. tl2 Signatures: Dispatcher [employer] EDMA Michele Mix MD MD pkl Mirna Delacruz RN RN fc Knox, Taylor, RN RN tl2 Tasha Campbell am2 Tom Singletary 3
--- NOTE | 2018-08-26 23:44 | EDPHYS ---
Physician Documentation [facility] Name: Christa Ayala Age: 72 yrs Sex: Female : 1945 Arrival Date: 08/26/2018 Time: 21:20 Bed 16 Private MD: Kendrick Stevens ED Physician Michele Mix HPI: 08/26 21:59 This 72 yrs old Black Female presents to ER via EMS with complaints of Fall Injury. pkl 21:59 Details of fall: The patient fell from an upright position, while standing. Onset: The pkl symptoms/episode began/occurred just prior to arrival, 1 hour(s) ago. Associated injuries: The patient sustained injury to the head, injury to the chest, right hip. Historical: - Allergies: 21:42 Codeine; fc 21:42 Demerol; fc 21:42 Iodine; fc - Home Meds: 21:42 Plavix 75 mg Oral tab 1 tab once daily [Active]; acetaminophen 325 mg Oral tab 1 -2 fc tabs every 4-6 hours for Pain [Active]; pantoprazole 40 mg Oral TbEC 1 tab once daily [Active]; aspirin 81 mg Oral TbEC 1 tab once daily [Active]; atorvastatin 40 mg Oral tab 1 tab nightly [Active]; bumetanide 1 mg Oral tab 1 tab 2 times per day [Active]; carvedilol 6.25 mg Oral tab 1 tab 2 times per day [Active]; digoxin 125 mcg Oral tab 1 tab once daily [Active]; isosorbide mononitrate 30 mg Oral Tb24 1 tab once daily [Active]; escitalopram oxalate 10 mg Oral tab 1 tab once daily [Active]; metformin 1,000 mg Oral tab 1 tab 2 times per day [Active]; milrinone 400 mcg/ml intravenous continuous as directed [Active]; glimepiride 1 mg Oral tab 1 tab once daily [Active]; - PMHx: 21:42 Atrial Fib; COPD; CHF; Diabetes - NIDDM; GERD; Emphysema; enlarged aorta; Hypertension; fc Myocardial infarction; High Cholesterol; - Immunization history: Last tetanus immunization: unknown. - Social history:: Smoking status: Patient/guardian denies using tobacco. - Ebola Screening: : Patient negative for fever greater than or equal to 101.5 degrees Fahrenheit, and additional compatible Ebola Virus Disease symptoms Patient denies exposure to infectious person Patient denies travel to an Ebola-affected area in the 21 days before illness onset. ROS: 21:59 Eyes: Negative for injury, pain, redness, and discharge, ENT: Negative for injury, pkl pain, and discharge, Neck: Negative for injury, pain, and swelling, Cardiovascular: Negative for chest pain, palpitations, and edema. 21:59 Respiratory: Negative for cough, shortness of breath. 21:59 Abdomen/GI: Negative for abdominal pain, nausea, vomiting, and diarrhea. 21:59 Back: Negative for pain with movement. 21:59 : Negative for urinary symptoms. 21:59 MS/extremity: Positive for of the right hip, hematoma. 21:59 Skin: Negative for rash. 21:59 Neuro: Negative for altered mental status. Exam: 21:59 Eyes: Pupils equal round and reactive to light, extra-ocular motions intact. Lids and pkl lashes normal. Conjunctiva and sclera are non-icteric and not injected. Cornea within normal limits. Periorbital areas with no swelling, redness, or edema. 21:59 Head/face: Noted is contusion, hematoma, that is mild, of the forehead. 21:59 ENT: Exam is negative for acute changes. 21:59 Neck: Exam negative for nuchal rigidity. 21:59 Chest/axilla: Exam negative for acute changes. 21:59 Cardiovascular: Rate: normal, Rhythm: regular. 21:59 Respiratory: the patient does not display signs of respiratory distress, Respirations: normal, Breath sounds: are clear throughout. 21:59 Abdomen/GI: Bowel sounds: normal, Palpation: abdomen is soft and non-tender, in all quadrants. 21:59 Back: Exam negative for acute changes. 21:59 : Exam negative for acute changes. 21:59 Musculoskeletal/extremity: Extremities: grossly normal except: noted in the hematoma about 8 cm: right hip. 21:59 Skin: Exam negative for rash. 21:59 Neuro: Orientation: is normal, Mentation: is normal, Cranial nerves: grossly normal, Motor: is normal. Vital Signs: 21:15 BP 140 / 90; Pulse 74; Resp 18; Temp 98.7(O); Pulse Ox 98% on R/A; Weight 52.16 kg (R); fc Height 5 ft. 6 in. (167.64 cm) (R); Pain 7/10; 22:15 BP 156 / 102; Pulse 75; Resp 18; Pulse Ox 97% on R/A; tl2 23:22 BP 175 / 106; Pulse 78; Resp 18; Pulse Ox 96% on R/A; tl2 08/27 00:06 BP 171 / 107; Pulse 88; Resp 20; Pulse Ox 100% on R/A; tl2 08/26 21:15 Body Mass Index 18.56 (52.16 kg, 167.64 cm) fc Devens Coma Score: 08/26 21:15 Eye Response: spontaneous(4). Verbal Response: oriented(5). Motor Response: obeys fc commands(6). Total: 15. 22:15 Eye Response: spontaneous(4). Verbal Response: oriented(5). Motor Response: obeys tl2 commands(6). Total: 15. Trauma Score (Adult): 21:15 Eye Response: spontaneous(1); Verbal Response: oriented(1); Motor Response: obeys fc commands(2); Systolic BP: > 89 mm Hg(4); Respiratory Rate: 10 to 29 per min(4); Hillary Score: 15; Trauma Score: 12 22:15 Eye Response: spontaneous(1); Verbal Response: oriented(1); Motor Response: obeys tl2 commands(2); Systolic BP: > 89 mm Hg(4); Respiratory Rate: 10 to 29 per min(4); Devens Score: 15; Trauma Score: 12 MDM: 21:42 Patient medically screened. pkl 23:39 Data reviewed: vital signs, nurses notes, radiologic studies, CT scan. ED course: pkl Talked to Dr. Almonte, will follow up patient on Tuesday in his office. 23:43 ED course: Discussed CT Scan results with patient and family. Ice packto hematoma right pkl hip. Hold Plavix for 1 week. Follow up with Dr. Almonte on Tuesday. Patient and family understood instructions. 08/26 21:57 Order name: CT Traumagram (Head C Spine CAP wo con) pkl 08/26 23:38 Order name: Jagdish Wrap; Complete Time: 23:45 pkl Administered Medications: No medications were administered Disposition: 08/26/18 23:43 Discharged to Home. Impression: Hematoma right hip. fracture right 5th rib. Hematoma forehead. S/P Fall. - Condition is Stable. - Medication Reconciliation Form, Thank You Letter, Antibiotic Education, Prescription Opioid Use form. - Follow up: Bautista Almonte MD; When: 2 - 3 days; Reason: Re-evaluation by your physician. - Problem is new. - Symptoms have improved. Signatures: Dispatcher [employer] EDMS Michele Mix MD MD pkl Mirna Delacruz RN RN Richa Fong RN RN tl2 Corrections: (The following items were deleted from the chart) 08/27 00:12 08/26 23:43 08/26/2018 23:43 Discharged to Home. Impression: Hematoma right hip. tl2 fracture right 5th rib. Hematoma forehead. S/P Fall. Condition is Stable. Forms are Medication Reconciliation Form, Thank You Letter, Antibiotic Education, Prescription Opioid Use. Follow up: Bautista Almonte; When: 2 - 3 days; Reason: Re-evaluation by your physician. Problem is new. Symptoms have improved. pkl
[2018-08-27 00:55] VITALS: BP 171/107; O2SAT 100
--- NOTE | 2018-08-29 10:47 | RAD REPORT ---
EXAM DESCRIPTION: CT - Head C Spine Cap Wo Con - 08/26/2018 10:54 pm ADDENDUM #1 CLINICAL HISTORY: Fall COMPARISON: None. TECHNIQUE: CT Head and Cervical spine WO contrast on 08/26/2018 9:57 PM CDT This exam was performed according to our departmental dose-optimization program, which includes autom ated exposure control, adjustment of the mA and/or kV according to patient size and/or use of iterati ve reconstruction technique. FINDINGS: Chest: The heart is moderately enlarged. Descending thoracic aortic endograft is noted. Th ere is no pericardial effusion. Intrathoracic lymph nodes are not enlarged. Right PICC line tip is in the lower SVC. There is no pleural effusion, pleural thickening or pneumothorax. Central airways are patent. There i s mostly upper lung centrilobular emphysema. Abdomen: The liver is normal in appearance. There is no biliary dilatation. Gallbladder contains tiny layering gallstones versus sludge. The pancreas and spleen are normal in appearance. Adrenal glands are normal. There are multiple vascular calcifications within both kidneys. There are several tiny ri ght renal simple cysts. The distal aspect of the descending thoracic aorta is aneurysmal measuring 9.5 cm and is not fully ex cluded by the endograft. Abdominal aortic aneurysm is been repaired with an endograft. There is no fr ee air. There is no retroperitoneal adenopathy. Pelvis: There is mild diverticulosis of the distal colon. Urinary bladder is unremarkable. A small am ount of free pelvic fluid. Uterus is poorly seen. Appendix is not well seen. There is a hematoma ov erlying the proximal right femur posterolaterally measuring 6.1 cm. Skeleton: There is a mildly displaced fracture of the right fifth rib. There is chronic deformity of the left side L4 vertebral body. There is mild S-shaped scoliosis of the thoracolumbar spine. IMPRESSION: Right hip soft tissue hematoma with no definite acute fracture in the hip. Minimally displaced anterior right fifth rib fracture. Electronically signed by: Abdi Pizarro MD 08/26/2018 11:15 PM CDT End of Addendum CLINICAL HISTORY: Fall COMPARISON: None. TECHNIQUE: CT Head and Cervical spine WO contrast on 08/26/2018 9:57 PM CDT This exam was performed according to our departmental dose-optimization program, which includes autom ated exposure control, adjustment of the mA and/or kV according to patient size and/or use of iterati ve reconstruction technique. FINDINGS: There is no acute hemorrhage, mass effect or midline shift. Thapa-white differentiation is preserved. There is no hydrocephalus. There is no significant volume loss for age. There are mild pat douglas hypodensities within the periventricular and subcortical white matter, consistent with microangio pathic ischemic changes. The calvarium is intact. Orbits and globes are unremarkable. The paranasal sinuses are clear. Mastoid air cells are clear. There is no acute fracture. Alignment is anatomic. There is moderate narrowing of the C6-7 disc. Vertebral body heights are preserved. There is upper samuel ng centrilobular emphysema. IMPRESSION: No definite posttraumatic findings. Electronically signed by: Abdi Pizarro MD 08/26/2018 11:01 PM CDT Due to temporary technical issues with the PACS/Fluency reporting system, reports are being signed by the in house radiologist as a courtesy to ensure prompt reporting. The interpreting radiologist is f ully responsible for the content of the report.
== END 2018-08-27 00:12 | disposition home or self-care (01) ==
LOC: ER 21:16
DX: S70.01XA Contusion of right hip, initial encounter (principal); S22.31XA Fracture of one rib, right side, initial encounter for closed fracture; S00.83XA Contusion of other part of head, initial encounter; W18.30XA Fall on same level, unspecified, initial encounter; I48.91 Unspecified atrial fibrillation; J44.9 Chronic obstructive pulmonary disease, unspecified; E11.9 Type 2 diabetes mellitus without complications; K21.9 Gastro-esophageal reflux disease without esophagitis; I10 Essential (primary) hypertension; I25.2 Old myocardial infarction; E78.00 Pure hypercholesterolemia, unspecified; Z79.84 Long term (current) use of oral hypoglycemic drugs; Z79.82 Long term (current) use of aspirin; Z88.5 Allergy status to narcotic agent; Z88.8 Allergy status to other drugs, medicaments and biological substances
CPT/HCPCS: 70450; 71250; 72125; 99284

== ENCOUNTER 2018-12-21 11:48 | Inpatient (IN) | payer OTHER ==
--- OUTSIDE RECORDS SUMMARY | 2018-12-21 11:54 | XMS REPORT | Clinical Summary ---
:1945 Author Organization [facility] Address [address] [place] [address] Care Team Providers Name Role Phone Kendrick Stevens MD Primary Care Provider Daniel Pan Unavailable Allergies Active Allergy Reactions Severity Noted Date Comments Codeine Hives Medium 06/11/2016 Iodine Low 04/23/2017 Other reaction(s): Itching/Hives/Rash Iodine And Iodide Containing Hives 06/11/2016 Products Medications Medication Sig Dispensed Refills Start End Date Status Date clopidogrel Take 75 mg by 0 Active (PLAVIX) 75 mg mouth daily. tablet aspirin 81 MG Take 81 mg by 0 Active chewable tablet mouth daily. metFORMIN Take 1,000 mg by 0 Active (GLUCOPHAGE) 1000 mouth 2 (two) MG tablet times daily as needed (for BG over 200) . zinc Apply 45 g 1 Tube 0 Active oxide-petrolatum topically 2 (two) 8 (CRITIC-AID) 20-51 times daily. % Pste topical paste escitalopram Take 10 mg by 0 Active oxalate (LEXAPRO) mouth daily. 10 MG tablet pantoprazole Take 40 mg by 0 Active (PROTONIX) 40 MG mouth daily. tablet milrinone Inject 24 mcg/min 100 mL 0 Active (PRIMACOR) infusion intravenously 9 20 mg in dextrose continuous. 5% (D5W) 100 mL (200 mcg/mL) isosorbide Take 30 mg by 0 Active mononitrate (IMDUR) mouth daily. 30 MG 24 hr tablet docusate sodium Take 100 mg by 0 Active (COLACE) 100 MG mouth daily as capsule needed for Constipation. atorvastatin Take 40 mg by 0 Active (LIPITOR) 40 MG mouth daily. tablet acetaminophen Take 650 mg by 0 Active (TYLENOL) 325 MG mouth every 6 tablet (six) hours as needed for Pain. sacubitril-valsarta Take 1 tablet by 180 tablet 3 09/13/19 Active n (ENTRESTO) 24-26 mouth 2 (two) 9 20 mg Tab times daily. digoxin (LANOXIN) Take 1 tablet 90 tablet 3 Active 0.125 MG tablet (125 mcg total) 9 by mouth daily. spironolactone Take 0.5 tablets 45 tablet 3 Active (ALDACTONE) 25 MG (12.5 mg total) 9 tablet by mouth daily. carvedilol (COREG) Take 1 tablet 60 tablet 0 10/17/19 Active 6.25 MG tablet (6.25 mg total) 9 20 by mouth 2 (two) times daily. bumetanide (BUMEX) Take 1 tablet (1 36 tablet 10/18/19 Active 1 MG tablet mg total) by 9 20 mouth 3 (three) times a week. amLODIPine Take 10 mg by 0 07/23/19 Discontinued (NORVASC) 10 MG mouth daily. 19 tablet lisinopril Take 10 mg by 0 07/23/19 Discontinued (PRINIVIL,ZESTRIL) mouth daily. 19 10 MG tablet atorvastatin Take 1 tablet (40 30 tablet 08/11/19 (LIPITOR) 40 MG mg total) by 8 19 tablet mouth daily. budesonide Take 2 mLs (0.5 60 mL 0 08/10/19 (PULMICORT) 0.5 mg total) by 8 19 mg/2 mL nebulizer nebulization 2 solution (two) times daily. bumetanide (BUMEX) Take 1 tablet (1 60 tablet 08/10/19 Discontinued 1 MG tablet mg total) by 8 19 mouth 2 (two) times daily. hydrALAZINE Take 1 tablet (25 90 tablet 11 07/23/19 Discontinued (APRESOLINE) 25 MG mg total) by 8 19 tablet mouth every 8 (eight) hours. isosorbide Take 1 tablet (30 30 tablet 08/11/19 mononitrate (IMDUR) mg total) by 8 30 MG 24 hr tablet mouth daily. metoprolol Take 0.5 tablets 30 tablet 11 07/23/19 Discontinued (TOPROL-XL) 25 MG (12.5 mg total) 8 24 hr tablet by mouth 2 (two) times daily. furosemide (LASIX) Take 40 mg by 0 07/23/19 Discontinued 40 MG tablet mouth 2 (two) 19 times daily. glimepiride Take 1 mg by 0 10/18/19 Discontinued (AMARYL) 1 MG mouth 2 (two) 19 tablet times daily. albuterol HFA Inhale 1 puff by 0 07/23/19 Discontinued (VENTOLIN HFA) 90 mouth via inhaler 19 mcg/actuation every 6 (six) inhaler hours as needed for Wheezing. bisacodyl Take 2 tablets 30 tablet 0 08/23/19 (DULCOLAX) 5 mg EC (10 mg total) by 9 tablet mouth daily for 30 days. carvedilol (COREG) Take 1 tablet 60 tablet 0 10/18/19 Discontinued 6.25 MG tablet (6.25 mg total) 12 21 by mouth 2 (two) times daily. digoxin (LANOXIN) Take 1 tablet 60 tablet 0 10/18/19 Discontinued 0.125 MG tablet (125 mcg total) 12 21 by mouth daily. bumetanide (BUMEX) Take 1 mg by 0 10/18/19 Discontinued 1 MG tablet mouth daily . 19 bumetanide (BUMEX) Take 1 tablet (1 60 tablet 3 10/18/19 Discontinued 1 MG tablet mg total) by 9 19 mouth daily as needed. potassium chloride Take 1 tablet (20 2 tablet 0 10/19/19 SA (K-DUR,KLOR-CON) mEq total) by 12 21 20 MEQ tablet mouth 2 (two) times daily for 1 day. Active Problems Patient Care Coordination Note Home Health: [facility] Address: [address] [place] [address] Milrinone: [facility] Address [address] [place] [address] Pertinent Tests CTA Chest 10/31/18 CONCLUSIONS: 1. The ascending thoracic aorta is unremarkable. The transverse arch is unremarkable. Endostent is identified in the descending thoracic aorta that is well-positioned. No endoleak is identified. However, distal to the endostent, continued dilation of the aorta is identified near the diaphragmatic hiatus with dimensions as described above. Due to the continued dilation, some contrast is seen outside the stent, inside the [place] aorta (essentially present Type I endoleak). In the infrarenal abdominal aorta, aortic stent is identified, that is well-positioned. In the available images, no endoleak is present. The pelvic arteries are diffusely calcified circumferentially, however, no obstructive lesion is present. No acute aortic dissection is identified in the entire thoracoabdominal aorta. Quantitative dimensions of the thoracoabdominal aorta as described above. The maximum diameter at the diaphragmatic hiatus, distal to the endostent, is measured to be approximately 9.4 x 7.5 cm in diameter, when compared to 5.8 x 4.7 cm in 2017, confirming substantial enlargement. As expected, nonobstructive intraluminal thrombus is identified, in the right lateral aspect of the aorta at the level of the dilation. Please See snapshot for details. 2. Normal coronary artery origins. Scattered coronary artery calcification is identified. 3. Diffuse centrilobular emphysematous changes. No pulmonary nodule is seen. The central pulmonary artery is mildly prominent. 4. Other findings as described above. 5. An addendum will be dictated by the Sales Training Representative Radiologist regarding the nonvascular findings. CTA Abdomen and Pelvis 10/31/18 CONCLUSIONS: 1. The ascending thoracic aorta is unremarkable. The transverse arch is unremarkable. Endostent is identified in the descending thoracic aorta that is well-positioned. No endoleak is identified. However, distal to the endostent, continued dilation of the aorta is identified near the diaphragmatic hiatus with dimensions as described above. Due to the continued dilation, some contrast is seen outside the stent, inside the [place] aorta (essentially present Type I endoleak). In the infrarenal abdominal aorta, aortic stent is identified, that is well-positioned. In the available images, no endoleak is present. The pelvic arteries are diffusely calcified circumferentially, however, no obstructive lesion is present. No acute aortic dissection is identified in the entire thoracoabdominal aorta. Quantitative dimensions of the thoracoabdominal aorta as described above. The maximum diameter at the diaphragmatic hiatus, distal to the endostent, is measured to be approximately 9.4 x 7.5 cm in diameter, when compared to 5.8 x 4.7 cm in 2017, confirming substantial enlargement. As expected, nonobstructive intraluminal thrombus is identified, in the right lateral aspect of the aorta at the level of the dilation. Please See snapshot for details. 2. Normal coronary artery origins. Scattered coronary artery calcification is identified. 3. Diffuse centrilobular emphysematous changes. No pulmonary nodule is seen. The central pulmonary artery is mildly prominent. 4. Other findings as described above. Problem Noted Date Right ventricular dysfunction 06/30/2018 [...] Encounters Date Type Specialty Care Team Description 12/20/2018 Office Visit Transplant Kenton Levy, Chronic systolic MD congestive heart failure (HCC) (Primary Dx) 12/19/2018 Documentation Transplant Lauren Beavers 10/31/2018 Office Visit Transplant Kenton Levy, Acute on chronic systolic heart failure (HCC) (EF 22%) (Primary Dx); MD Receiving inotropic medication Rachel Ewing, PAULA 10/31/2018 Hospital Encounter Radiology Ervinbricefatoumata Yesi Descending thoracic Uchechukwu, HARNESS PREPARER aortic aneurysm (HCC) 10/31/2018 Hospital Encounter Radiology Kristen Yesi Descending thoracic Uchechukwu, HARNESS PREPARER aortic aneurysm (HCC) 10/17/2018 Initial consult Transplant Sandoval Lazcano Acute on chronic MD Harry systolic heart failure (HCC) 10/17/2018 Office Visit Transplant Rachel Ewing Chronic systolic Josesito, TRACIE congestive heart Rachel Ewing, failure (HCC) RN 10/17/2018 Hospital Encounter Cardiology Rachel Ewing Chronic systolic Eulalia Temple, TRACIE congestive heart failure (HCC) 10/17/2018 Orders Only General Internal Medicine 09/13/2018 Office Visit Transplant Kenton Levy, Chronic systolic congestive heart failure (HCC); Screening for thyroid disorder; Screening for diabetes mellitus (DM); Screening for hyperlipidemia 09/12/2018 Orders Only Transplant Marcus Nunes, Chronic systolic congestive heart failure (HCC) (Primary Dx); RN Screening for hyperlipidemia; Screening for diabetes mellitus (DM); Screening for thyroid disorder 09/12/2018 Documentation Transplant Lauren Beavers R 08/09/2018 Orders Only Kristen Yesi Descending thoracic UchechukwTRACIE sanchez aortic aneurysm (HCC) (Primary Dx) 08/09/2018 Orders [...] mellitus with other specified complication, unspecified whether fci insulin use (HCC); Cardiogenic shock (HCC); Ischemic cardiomyopathy; Acute on chronic systolic heart failure (HCC); Acute respiratory insufficiency; Right ventricular dysfunction; Essential hypertension 06/29/2018 Surgery Malathi, REPAIR,TEVAR-THORACIC Masha ENDOVASCULAR ANEURYSM MD Suzette after 12/20/2017 Family History Medical History Relation Name Comments [...] Vital Sign Reading Time Taken Blood Pressure 152/89 10/17/2018 1:33 PM CDT Pulse 81 10/17/2018 11:16 AM CDT Temperature 36.1 C (97 F) 10/17/2018 11:16 AM CDT Respiratory Rate 20 10/17/2018 11:16 AM CDT Oxygen Saturation 100% 10/17/2018 11:16 AM CDT Inhaled Oxygen Concentration 28% 07/11/2018 8:26 AM CDT Weight 59 kg (130 lb 1.6 oz) 10/17/2018 11:16 AM CDT Height 165.1 cm (5' 5") 10/17/2018 11:16 AM CDT Body Mass Index 21.65 10/17/2018 11:16 AM CDT Plan of Treatment Date Type Specialty Care Team Description 02/02/2019 Office Visit Transplant Kenton Levy MD [address] [place] [address] [phone] Health Maintenance Due Date Last Done Comments BREAST CANCER SCREENING 1945 HEMOGLOBIN A1C 03/15/2019 09/13/2018, 07/18/2017, 06/11/2016 Implants Implanted 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 Device Shelf Model / Identifier Expiration Serial / Date Lot Francis Ray Thor Endo [id number] - [id number] CV Aneurysm COOK:AORTIC [id number] 03/20/2021 [id number] / Implanted: Qty: 1 on 06/29/2018 by Masha Servin MD INTERVENTION / [id number] Jaimerosa maria Zenith Thor Endo [id number] - [id number] CV Aneurysm COOK:AORTIC [id number] 02/10/2019 [id number] / Implanted: Qty: 1 on 06/29/2018 by Masha Servin MD INTERVENTION / [id number] Cory Gallagher Endo [id number] - [id number] CV Aneurysm COOK:AORTIC [id number] 12/27/2020 [id number] / Implanted: Qty: 1 on 06/29/2018 by Masha Servin MD INTERVENTION / [id number] Synergy Cardiovascular Coronary [place] [id number] 01/10/2018 [id number] / Implanted: Qty: 1 on 07/18/2017 by Oksana Stallings MD SCIENTIFIC / [id number] Procedures Procedure Name Priority Date/Time Associated Comments Diagnosis CTA ABDOMEN & PELVIS Routine 10/31/2018 1:11 Descending Results for this PM CDT thoracic aortic procedure are in aneurysm (HCC) the results section. CTA CHEST Routine 10/31/2018 1:11 Descending Results for this PM CDT thoracic aortic procedure are in aneurysm (HCC) the results section. POCT-CREATININE Routine 10/31/2018 11:51 Results for this AM CDT procedure are in the results section. ECHOCARDIOGRAM REPORT - 10/17/2018 9:33 SCAN PM CDT CBC W/PLT COUNT & AUTO Routine 10/17/2018 11:28 Chronic systolic Results for this DIFFERENTIAL AM CDT congestive heart procedure are in failure (HCC) the results section. B-TYPE NATRIURETIC STAT 10/17/2018 11:28 Chronic systolic Results for this FACTOR (BNP) AM CDT congestive heart procedure are in failure (HCC) the results section. CBC W/PLT COUNT & AUTO Routine 10/17/2018 11:28 Chronic systolic Results for this DIFFERENTIAL AM CDT congestive heart procedure are in failure (HCC) the results section. BASIC METABOLIC PANEL STAT 10/17/2018 11:28 Chronic systolic Results for this (7) AM CDT congestive heart procedure are in failure (HCC) the results section. ECG 12-LEAD Routine 10/17/2018 9:40 Chronic systolic Results for this AM CDT congestive heart procedure are in failure (HCC) the results section. ECG 12-LEAD Routine 10/17/2018 9:40 AM CDT Procedure Note - Interface, External Ris In - 10/17/2018 3:32 PM CDT Ventricular Rate 75 BPM Atrial Rate 75 BPM P-R Interval 204 ms QRS Duration 86 ms Q-T Interval 386 ms QTC Calculation(Bazett) 431 ms P [place] 33 degrees R [place] -3 degrees T [place] 7 degrees Normal sinus rhythm Inferior infarct , age undetermined Abnormal ECG When compared with ECG of 13-SEP-2018 07:50, Inferior infarct is now Present 2D ECHO W/ DOPPLER Routine 10/17/2018 8:38 Chronic systolic Results for this (CW/PW/COLOR) AM CDT congestive heart procedure are in failure (HCC) the results section. CBC W/PLT COUNT & Routine 09/13/2018 10:48 Chronic systolic Results for this AUTO DIFFERENTIAL AM CDT congestive heart procedure are in failure (HCC) the results section. PROTHROMBIN TIME/INR STAT 09/13/2018 10:48 Chronic systolic Results for this AM CDT congestive heart procedure are in failure (HCC) the results section. URIC ACID STAT 09/13/2018 10:48 Chronic systolic Results for this AM CDT congestive heart procedure are in failure (HCC) the results section. LIPID PANEL STAT 09/13/2018 10:48 Chronic systolic Results for this AM CDT congestive heart procedure are in failure (HCC) the results Screening for section. hyperlipidemia HEMOGLOBIN A1C Routine 09/13/2018 10:48 Chronic systolic Results for this AM CDT congestive heart procedure are in failure (HCC) the results Screening for diabetes section. mellitus (DM) MAGNESIUM STAT 09/13/2018 10:48 Chronic systolic Results for this AM CDT congestive heart procedure are in failure (HCC) the results section. PREALBUMIN STAT 09/13/2018 10:48 Chronic systolic Results for this AM CDT congestive heart procedure are in failure (HCC) the results section. TSH/FREE T4 IF Routine 09/13/2018 10:48 Chronic systolic Results for this INDICATED AM CDT congestive heart procedure are in failure (HCC) the results Screening for thyroid section. disorder B-TYPE NATRIURETIC STAT 09/13/2018 10:48 Chronic systolic Results for this FACTOR (BNP) AM CDT congestive heart procedure are in failure (HCC) the results section. COMPREHENSIVE STAT 09/13/2018 10:48 Chronic systolic Results for this METABOLIC PANEL AM CDT congestive heart procedure are in failure (HCC) the results section. CBC W/PLT COUNT & Routine 09/13/2018 10:48 Chronic systolic Results for this AUTO DIFFERENTIAL AM CDT congestive heart procedure are in failure (HCC) the results section. ECG 12-LEAD Routine 09/13/2018 7:50 AM CDT Procedure Note - Interface, External Ris In - 09/13/2018 4:07 PM CDT Ventricular Rate 74 BPM Atrial Rate 74 BPM P-R Interval 188 ms QRS Duration 96 ms Q-T Interval 396 ms QTC Calculation(Bazett) 439 ms P [place] 54 degrees R [place] 10 degrees T [place] 25 degrees Normal sinus rhythm Nonspecific ST and T wave abnormality Abnormal ECG When compared with ECG of 08-JUL-2018 12:15, Non-specific change in ST segment in Anterior leads Nonspecific T wave abnormality, worse in Anterior leads QT has shortened ECG 12-LEAD Routine 09/13/2018 7:50 AM Chronic systolic Results for this CDT congestive heart procedure are in failure (HCC) the results section. RHYTHM STRIP - SCAN 07/25/2018 9:50 AM CDT RHYTHM STRIP - SCAN 07/25/2018 9:50 AM CDT VASCULAR DIAGRAM -SCAN 07/25/2018 9:50 AM CDT RHYTHM STRIP - SCAN 07/24/2018 1:52 PM CDT POCT-GLUCOSE METER Routine 07/22/2018 12:27 PM Results for this CDT procedure are in the results section. POCT-GLUCOSE METER Routine 07/22/2018 8:47 AM Results for this CDT procedure are in the results section. XR CHEST 1 VIEW Routine 07/22/2018 6:38 AM Results for this PORTABLE/BEDSIDE CDT procedure are in the results section. APTT Routine 07/22/2018 4:58 AM Results for this CDT procedure are in the results section. PHOSPHORUS Routine 07/22/2018 4:58 AM Results for this CDT procedure are in the results section. MAGNESIUM Routine 07/22/2018 4:58 AM Results for this CDT procedure are in the results section. BASIC METABOLIC PANEL Routine 07/22/2018 4:58 AM Results for this (7) CDT procedure are in the results section. CBC (HEMOGRAM ONLY) Routine 07/22/2018 4:58 AM Results for this CDT procedure are in the results section. POCT-GLUCOSE METER Routine 07/21/2018 9:34 PM Results for this CDT procedure are in the results section. POCT-GLUCOSE METER Routine 07/21/2018 6:09 PM Results for this CDT procedure are in the results section. POCT-GLUCOSE METER Routine 07/21/2018 2:02 PM Results for this CDT procedure are in the results section. POCT-GLUCOSE METER Routine 07/21/2018 12:50 PM Results for this CDT procedure are in the results section. POCT-GLUCOSE METER Routine 07/21/2018 9:08 AM Results for this CDT procedure are in the results section. XR CHEST 1 VIEW Routine 07/21/2018 6:57 AM Results for this PORTABLE/BEDSIDE CDT procedure are in the results section. APTT Routine 07/21/2018 5:30 AM Results for this CDT procedure are in the results section. PHOSPHORUS Routine 07/21/2018 5:30 AM Results for this CDT procedure are in the results section. MAGNESIUM Routine 07/21/2018 5:30 AM Results for this CDT procedure are in the results section. BASIC METABOLIC PANEL Routine 07/21/2018 5:30 AM Results for this (7) CDT procedure are in the results section. CBC (HEMOGRAM ONLY) Routine 07/21/2018 5:30 AM Results for this CDT procedure are in the results section. POCT-GLUCOSE METER Routine 07/20/2018 9:03 PM Results for this CDT procedure are in the results section. POCT-GLUCOSE METER Routine 07/20/2018 6:10 PM Results for this CDT procedure are in the results section. POCT-GLUCOSE METER Routine 07/20/2018 12:41 PM Results for this CDT procedure are in the results section. POCT-GLUCOSE METER Routine 07/20/2018 8:04 AM Results for this CDT procedure are in the results section. XR CHEST 1 VIEW Routine 07/20/2018 7:05 AM Results for this PORTABLE/BEDSIDE CDT procedure are in the results section. APTT Routine 07/20/2018 5:55 AM Results for this CDT procedure are in the results section. PHOSPHORUS Routine 07/20/2018 5:55 AM Results for this CDT procedure are in the results section. MAGNESIUM Routine 07/20/2018 5:55 AM Results for this CDT procedure are in the results section. BASIC METABOLIC PANEL Routine 07/20/2018 5:55 AM Results for this (7) CDT procedure are in the results section. CBC (HEMOGRAM ONLY) Routine 07/20/2018 5:55 AM Results for this CDT procedure are in the results section. POCT-GLUCOSE METER Routine 07/20/2018 12:41 AM Results for this CDT procedure are in the results section. POCT-GLUCOSE METER Routine 07/19/2018 9:13 PM Results for this CDT procedure are in the results section. POCT-GLUCOSE METER Routine 07/19/2018 5:34 PM Results for this CDT procedure are in the results section. POCT-GLUCOSE METER Routine 07/19/2018 12:47 PM Results for this CDT procedure are in the results section. POCT-GLUCOSE METER Routine 07/19/2018 7:25 AM Results for this CDT procedure are in the results section. XR CHEST 1 VIEW Routine 07/19/2018 7:10 AM Results for this PORTABLE/BEDSIDE CDT procedure are in the results section. PROTHROMBIN TIME/INR Routine 07/19/2018 4:49 AM Results for this CDT procedure are in the results section. APTT Routine 07/19/2018 4:49 AM Results for this CDT procedure are in the results section. PHOSPHORUS Routine 07/19/2018 4:49 AM Results for this CDT procedure are in the results section. MAGNESIUM Routine 07/19/2018 4:49 AM Results for this CDT procedure are in the results section. BASIC METABOLIC PANEL Routine 07/19/2018 4:49 AM Results for this (7) CDT procedure are in the results section. CBC (HEMOGRAM ONLY) Routine 07/19/2018 4:49 AM Results for this CDT procedure are in the results section. POCT-GLUCOSE METER Routine 07/18/2018 11:04 PM Results for this CDT procedure are in the results section. POCT-GLUCOSE METER Routine 07/18/2018 9:44 PM Results for this CDT procedure are in the results section. POCT-GLUCOSE METER Routine 07/18/2018 6:14 PM Results for this CDT procedure are in the results section. POCT-GLUCOSE METER Routine 07/18/2018 8:29 AM Results for this CDT procedure are in the results section. XR CHEST 1 VIEW Routine 07/18/2018 6:52 AM Results for this PORTABLE/BEDSIDE CDT procedure are in the results section. PROTHROMBIN TIME/INR Routine 07/18/2018 3:51 AM Results for this CDT procedure are in the results section. APTT Routine 07/18/2018 3:51 AM Results for this CDT procedure are in the results section. PHOSPHORUS Routine 07/18/2018 3:51 AM Results for this CDT procedure are in the results section. MAGNESIUM Routine 07/18/2018 3:51 AM Results for this CDT procedure are in the results section. BASIC METABOLIC PANEL Routine 07/18/2018 3:51 AM Results for this (7) CDT procedure are in the results section. CBC (HEMOGRAM ONLY) Routine 07/18/2018 3:51 AM Results for this CDT procedure are in the results section. POCT-GLUCOSE METER Routine 07/17/2018 8:51 PM Results for this CDT procedure are in the results section. POCT-GLUCOSE METER Routine 07/17/2018 6:13 PM Results for this CDT procedure are in the results section. POCT-GLUCOSE METER Routine 07/17/2018 1:14 PM Results for this CDT procedure are in the results section. POCT-GLUCOSE METER Routine 07/17/2018 9:14 AM Results for this CDT procedure are in the results section. XR CHEST 1 VIEW Routine 07/17/2018 6:30 AM Results for this PORTABLE/BEDSIDE CDT procedure are in the results section. PROTHROMBIN TIME/INR Routine 07/17/2018 4:30 AM Results for this CDT procedure are in the results section. APTT Routine 07/17/2018 4:30 AM Results for this CDT procedure are in the results section. PHOSPHORUS Routine 07/17/2018 4:30 AM Results for this CDT procedure are in the results section. MAGNESIUM Routine 07/17/2018 4:30 AM Results for this CDT procedure are in the results section. BASIC METABOLIC PANEL Routine 07/17/2018 4:30 AM Results for this (7) CDT procedure are in the results section. CBC (HEMOGRAM ONLY) Routine 07/17/2018 4:30 AM Results for this CDT procedure are in the results section. POCT-GLUCOSE METER Routine 07/16/2018 9:25 PM Results for this CDT procedure are in the results section. POCT-GLUCOSE METER Routine 07/16/2018 5:58 PM Results for this CDT procedure are in the results section. POCT-GLUCOSE METER Routine 07/16/2018 1:01 PM Results for this CDT procedure are in the results section. POCT-GLUCOSE METER Routine 07/16/2018 9:40 AM Results for this CDT procedure are in the results section. XR CHEST 1 VIEW Routine 07/16/2018 6:18 AM Results for this PORTABLE/BEDSIDE CDT procedure are in the results section. PROTHROMBIN TIME/INR Routine 07/16/2018 4:49 AM Results for this CDT procedure are in the results section. APTT Routine 07/16/2018 4:49 AM Results for this CDT procedure are in the results section. PHOSPHORUS Routine 07/16/2018 4:49 AM Results for this CDT procedure are in the results section. MAGNESIUM Routine 07/16/2018 4:49 AM Results for this CDT procedure are in the results section. BASIC METABOLIC PANEL Routine 07/16/2018 4:49 AM Results for this (7) CDT procedure are in the results section. CBC (HEMOGRAM ONLY) Routine 07/16/2018 4:49 AM Results for this CDT procedure are in the results section. POCT-GLUCOSE METER Routine 07/15/2018 9:12 PM Results for this CDT procedure are in the results section. POCT-GLUCOSE METER Routine 07/15/2018 7:00 PM Results for this CDT procedure are in the results section. POCT-GLUCOSE METER Routine 07/15/2018 1:21 PM Results for this CDT procedure are in the results section. POCT-GLUCOSE METER Routine 07/15/2018 10:25 AM Results for this CDT procedure are in the results section. POCT-GLUCOSE METER Routine 07/15/2018 6:36 AM Results for this CDT procedure are in the results section. XR CHEST 1 VIEW Routine 07/15/2018 3:17 AM Results for this PORTABLE/BEDSIDE CDT procedure are in the results section. PROTHROMBIN TIME/INR Routine 07/15/2018 3:16 AM Results for this CDT procedure are in the results section. APTT Routine 07/15/2018 3:16 AM Results for this CDT procedure are in the results section. PHOSPHORUS Routine 07/15/2018 3:15 AM Results for this CDT procedure are in the results section. MAGNESIUM Routine 07/15/2018 3:15 AM Results for this CDT procedure are in the results section. BASIC METABOLIC PANEL Routine 07/15/2018 3:15 AM Results for this (7) CDT procedure are in the results section. CBC (HEMOGRAM ONLY) Routine 07/15/2018 3:15 AM Results for this CDT procedure are in the results section. POCT-GLUCOSE METER Routine 07/14/2018 9:45 PM Results for this CDT procedure are in the results section. POCT-GLUCOSE METER Routine 07/14/2018 6:48 PM Results for this CDT procedure are in the results section. POCT-GLUCOSE METER Routine 07/14/2018 4:56 PM Results for this CDT procedure are in the results section. POCT-GLUCOSE METER Routine 07/14/2018 11:32 AM Results for this CDT procedure are in the results section. XR CHEST 1 VIEW Routine 07/14/2018 4:53 AM Results for this PORTABLE/BEDSIDE CDT procedure are in the results section. PROTHROMBIN TIME/INR Routine 07/14/2018 3:20 AM Results for this CDT procedure are in the results section. APTT Routine 07/14/2018 3:20 AM Results for this CDT procedure are in the results section. PHOSPHORUS Routine 07/14/2018 3:20 AM Results for this CDT procedure are in the results section. MAGNESIUM Routine 07/14/2018 3:20 AM Results for this CDT procedure are in the results section. BASIC METABOLIC PANEL Routine 07/14/2018 3:20 AM Results for this (7) CDT procedure are in the results section. CBC (HEMOGRAM ONLY) Routine 07/14/2018 3:20 AM Results for this CDT procedure are in the results section. POCT-GLUCOSE METER Routine 07/13/2018 9:10 PM Results for this CDT procedure are in the results section. POCT-GLUCOSE METER Routine 07/13/2018 4:30 PM Results for this CDT procedure are in the results section. POCT-GLUCOSE METER Routine 07/13/2018 12:28 PM Results for this CDT procedure are in the results section. POCT-GLUCOSE METER Routine 07/13/2018 8:43 AM Results for this CDT procedure are in the results section. XR CHEST 1 VIEW Routine 07/13/2018 8:22 AM Results for this PORTABLE/BEDSIDE CDT procedure are in the results section. DIGOXIN LEVEL Routine 07/13/2018 8:06 AM Results for this CDT procedure are in the results section. PROTHROMBIN TIME/INR Routine 07/13/2018 3:06 AM Results for this CDT procedure are in the results section. APTT Routine 07/13/2018 3:06 AM Results for this CDT procedure are in the results section. PHOSPHORUS Routine 07/13/2018 3:06 AM Results for this CDT procedure are in the results section. MAGNESIUM Routine 07/13/2018 3:06 AM Results for this CDT procedure are in the results section. BASIC METABOLIC PANEL Routine 07/13/2018 3:06 AM Results for this (7) CDT procedure are in the results section. CBC (HEMOGRAM ONLY) Routine 07/13/2018 3:06 AM Results for this CDT procedure are in the results section. POCT-GLUCOSE METER Routine 07/12/2018 10:39 PM Results for this CDT procedure are in the results section. TRANSFUSION SERVICE 07/12/2018 5:56 PM REPORT - SCAN CDT POCT-GLUCOSE METER Routine 07/12/2018 5:55 PM Results for this CDT procedure are in the results section. POCT-GLUCOSE METER Routine 07/12/2018 11:55 AM Results for this CDT procedure are in the results section. POCT-GLUCOSE METER Routine 07/12/2018 9:43 AM Results for this CDT procedure are in the results section. POCT-GLUCOSE METER Routine 07/12/2018 6:36 AM Results for this CDT procedure are in the results section. XR CHEST 1 VIEW Routine 07/12/2018 5:53 AM Results for this PORTABLE/BEDSIDE CDT procedure are in the results section. PROTHROMBIN TIME/INR Routine 07/12/2018 3:24 AM Results for this CDT procedure are in the results section. APTT Routine 07/12/2018 3:24 AM Results for this CDT procedure are in the results section. PHOSPHORUS Routine 07/12/2018 3:24 AM Results for this CDT procedure are in the results section. MAGNESIUM Routine 07/12/2018 3:24 AM Results for this CDT procedure are in the results section. BASIC METABOLIC PANEL Routine 07/12/2018 3:24 AM Results for this (7) CDT procedure are in the results section. CBC (HEMOGRAM ONLY) Routine 07/12/2018 3:24 AM Results for this CDT procedure are in the results section. POCT-GLUCOSE METER Routine 07/12/2018 12:10 AM Results for this CDT procedure are in the results section. PREPARE LEUKO-REDUCED Routine 07/11/2018 11:54 PM Results for this RBC CDT procedure are in the results section. TRANSFUSION SERVICE 07/11/2018 6:18 PM REPORT - SCAN CDT POCT-GLUCOSE METER Routine 07/11/2018 5:56 PM Results for this CDT procedure are in the results section. POCT-GLUCOSE METER Routine 07/11/2018 11:55 AM Results for this CDT procedure are in the results section. POCT-GLUCOSE METER Routine 07/11/2018 5:25 AM Results for this CDT procedure are in the results section. XR CHEST 1 VIEW Routine 07/11/2018 3:52 AM Results for this PORTABLE/BEDSIDE CDT procedure are in the results section. PROTHROMBIN TIME/INR Routine 07/11/2018 3:18 AM Results for this CDT procedure are in the results section. APTT Routine 07/11/2018 3:18 AM Results for this CDT procedure are in the results section. PHOSPHORUS Routine 07/11/2018 3:18 AM Results for this CDT procedure are in the results section. MAGNESIUM Routine 07/11/2018 3:18 AM Results for this CDT procedure are in the results section. BASIC METABOLIC PANEL Routine 07/11/2018 3:18 AM Results for this (7) CDT procedure are in the results section. CBC (HEMOGRAM ONLY) Routine 07/11/2018 3:18 AM Results for this CDT procedure are in the results section. POCT-GLUCOSE METER Routine 07/10/2018 11:59 PM Results for this CDT procedure are in the results section. TRANSFUSE LEUKO-REDUCED Routine 07/10/2018 6:35 PM RED BLOOD CELLS CDT POCT-GLUCOSE METER Routine 07/10/2018 6:17 PM Results for this CDT procedure are in the results section. POCT-GLUCOSE METER Routine 07/10/2018 12:11 PM Results for this CDT procedure are in the results section. XR CHEST 1 VIEW Routine 07/10/2018 7:34 AM Results for this PORTABLE/BEDSIDE CDT procedure are in the results section. POCT-GLUCOSE METER Routine 07/10/2018 6:31 AM Results for this CDT procedure are in the results section. POCT-GLUCOSE METER Routine 07/10/2018 5:32 AM Results for this CDT procedure are in the results section. TYPE AND SCREEN, Routine 07/10/2018 5:25 AM Results for this AUTOMATED CDT procedure are in the results section. PROTHROMBIN TIME/INR Routine 07/10/2018 3:10 AM Results for this CDT procedure are in the results section. APTT Routine 07/10/2018 3:10 AM Results for this CDT procedure are in the results section. PHOSPHORUS Routine 07/10/2018 3:10 AM Results for this CDT procedure are in the results section. MAGNESIUM Routine 07/10/2018 3:10 AM Results for this CDT procedure are in the results section. BASIC METABOLIC PANEL Routine 07/10/2018 3:10 AM Results for this (7) CDT procedure are in the results section. CBC (HEMOGRAM ONLY) Routine 07/10/2018 3:10 AM Results for this CDT procedure are in the results section. POCT-GLUCOSE METER Routine 07/09/2018 11:50 PM Results for this CDT procedure are in the results section. POCT-GLUCOSE METER Routine 07/09/2018 5:22 PM Results for this CDT procedure are in the results section. POCT-GLUCOSE METER Routine 07/09/2018 12:06 PM Results for this CDT procedure are in the results section. XR CHEST 1 VIEW Routine 07/09/2018 5:57 AM Results for this PORTABLE/BEDSIDE CDT procedure are in the results section. POCT-GLUCOSE METER Routine 07/09/2018 5:11 AM Results for this CDT procedure are in the results section. PROTHROMBIN TIME/INR Routine 07/09/2018 4:01 AM Results for this CDT procedure are in the results section. APTT Routine 07/09/2018 4:01 AM Results for this CDT procedure are in the results section. PHOSPHORUS Routine 07/09/2018 4:01 AM Results for this CDT procedure are in the results section. MAGNESIUM Routine 07/09/2018 4:01 AM Results for this CDT procedure are in the results section. BASIC METABOLIC PANEL Routine 07/09/2018 4:01 AM Results for this (7) CDT procedure are in the results section. CBC (HEMOGRAM ONLY) Routine 07/09/2018 4:01 AM Results for this CDT procedure are in the results section. POCT-GLUCOSE METER Routine 07/08/2018 11:26 PM Results for this CDT procedure are in the results section. POCT-GLUCOSE METER Routine 07/08/2018 5:24 PM Results for this CDT procedure are in the results section. ECG 12-LEAD Routine 07/08/2018 12:15 PM Results for this CDT procedure are in the results section. POCT-GLUCOSE METER Routine 07/08/2018 11:44 AM Results for this CDT procedure are in the results section. XR CHEST 1 VIEW Routine 07/08/2018 4:40 AM Results for this PORTABLE/BEDSIDE CDT procedure are in the results section. PROTHROMBIN TIME/INR Routine 07/08/2018 3:37 AM Results for this CDT procedure are in the results section. APTT Routine 07/08/2018 3:37 AM Results for this CDT procedure are in the results section. PHOSPHORUS Routine 07/08/2018 3:37 AM Results for this CDT procedure are in the results section. MAGNESIUM Routine 07/08/2018 3:37 AM Results for this CDT procedure are in the results section. BASIC METABOLIC PANEL Routine 07/08/2018 3:37 AM Results for this (7) CDT procedure are in the results section. CBC (HEMOGRAM ONLY) Routine 07/08/2018 3:37 AM Results for this CDT procedure are in the results section. XR CHEST 1 VIEW Routine 07/07/2018 5:50 AM Results for this PORTABLE/BEDSIDE CDT procedure are in the results section. PROTHROMBIN TIME/INR Routine 07/07/2018 4:48 AM Results for this CDT procedure are in the results section. APTT Routine 07/07/2018 4:48 AM Results for this CDT procedure are in the results section. PHOSPHORUS Routine 07/07/2018 4:48 AM Results for this CDT procedure are in the results section. MAGNESIUM Routine 07/07/2018 4:48 AM Results for this CDT procedure are in the results section. BASIC METABOLIC PANEL Routine 07/07/2018 4:48 AM Results for this (7) CDT procedure are in the results section. CBC (HEMOGRAM ONLY) Routine 07/07/2018 4:48 AM Results for this CDT procedure are in the results section. XR CHEST 1 VIEW STAT 07/06/2018 4:54 PM Results for this PORTABLE/BEDSIDE CDT procedure are in the results section. MAGNESIUM STAT 07/06/2018 4:26 PM Results for this CDT procedure are in the results section. BASIC METABOLIC PANEL STAT 07/06/2018 4:26 PM Results for this (7) CDT procedure are in the results section. BLOOD GAS, ARTERIAL Routine 07/06/2018 4:26 PM Results for this CDT procedure are in the results section. XR CHEST 1 VIEW Routine 07/06/2018 11:29 AM Results for this PORTABLE/BEDSIDE CDT procedure are in the results section. ECG 12-LEAD Routine 07/06/2018 10:28 AM Results for this CDT procedure are in the results section. PROTHROMBIN TIME/INR Routine 07/06/2018 3:28 AM Results for this CDT procedure are in the results section. APTT Routine 07/06/2018 3:28 AM Results for this CDT procedure are in the results section. PHOSPHORUS Routine 07/06/2018 3:28 AM Results for this CDT procedure are in the results section. MAGNESIUM Routine 07/06/2018 3:28 AM Results for this CDT procedure are in the results section. BASIC METABOLIC PANEL Routine 07/06/2018 3:28 AM Results for this (7) CDT procedure are in the results section. CBC (HEMOGRAM ONLY) Routine 07/06/2018 3:28 AM Results for this CDT procedure are in the results section. HEPATIC FUNCTION PANEL Routine 07/05/2018 5:16 PM Results for this CDT procedure are in the results section. XR CHEST 1 VIEW Routine 07/05/2018 5:43 AM Results for this PORTABLE/BEDSIDE CDT procedure are in the results section. PROTHROMBIN TIME/INR Routine 07/05/2018 3:42 AM Results for this CDT procedure are in the results section. APTT Routine 07/05/2018 3:42 AM Results for this CDT procedure are in the results section. PHOSPHORUS Routine 07/05/2018 3:42 AM Results for this CDT procedure are in the results section. MAGNESIUM Routine 07/05/2018 3:42 AM Results for this CDT procedure are in the results section. BASIC METABOLIC PANEL Routine 07/05/2018 3:42 AM Results for this (7) CDT procedure are in the results section. CBC (HEMOGRAM ONLY) Routine 07/05/2018 3:42 AM Results for this CDT procedure are in the results section. POCT-GLUCOSE METER Routine 07/04/2018 6:20 PM Results for this CDT procedure are in the results section. XR CHEST 1 VIEW Routine 07/04/2018 6:02 AM Results for this PORTABLE/BEDSIDE CDT procedure are in the results section. PROTHROMBIN TIME/INR Routine 07/04/2018 3:48 AM Results for this CDT procedure are in the results section. APTT Routine 07/04/2018 3:48 AM Results for this CDT procedure are in the results section. PHOSPHORUS Routine 07/04/2018 3:48 AM Results for this CDT procedure are in the results section. MAGNESIUM Routine 07/04/2018 3:48 AM Results for this CDT procedure are in the results section. BASIC METABOLIC PANEL Routine 07/04/2018 3:48 AM Results for this (7) CDT procedure are in the results section. CBC (HEMOGRAM ONLY) Routine 07/04/2018 3:48 AM Results for this CDT procedure are in the results section. POTASSIUM Routine 07/03/2018 10:03 AM Results for this CDT procedure are in the results section. POCT-GLUCOSE METER Routine 07/03/2018 8:13 AM Results for this CDT procedure are in the results section. XR ABDOMEN / KUB 1 VIEW STAT 07/03/2018 6:15 AM Results for this CDT procedure are in the results section. XR CHEST 1 VIEW Routine 07/03/2018 6:15 AM Results for this PORTABLE/BEDSIDE CDT procedure are in the results section. PROTHROMBIN TIME/INR Routine 07/03/2018 3:24 AM Results for this CDT procedure are in the results section. APTT Routine 07/03/2018 3:24 AM Results for this CDT procedure are in the results section. PHOSPHORUS Routine 07/03/2018 3:24 AM Results for this CDT procedure are in the results section. MAGNESIUM Routine 07/03/2018 3:24 AM Results for this CDT procedure are in the results section. BASIC METABOLIC PANEL Routine 07/03/2018 3:24 AM Results for this (7) CDT procedure are in the results section. CBC (HEMOGRAM ONLY) Routine 07/03/2018 3:24 AM Results for this CDT procedure are in the results section. OXYGEN SATURATION, Routine 07/02/2018 10:46 AM Results for this MEASURED CDT procedure are in the results section. OXYGEN SATURATION, STAT 07/02/2018 8:43 AM Results for this MEASURED CDT procedure are in the results section. BLOOD GAS, ARTERIAL Routine 07/02/2018 8:43 AM Results for this CDT procedure are in the results section. CBC W/PLT COUNT & AUTO STAT 07/02/2018 4:09 AM Results for this DIFFERENTIAL CDT procedure are in the results section. CBC W/PLT COUNT & AUTO STAT 07/02/2018 4:09 AM Results for this DIFFERENTIAL CDT procedure are in the results section. BASIC METABOLIC PANEL STAT 07/02/2018 4:09 AM Results for this (7) CDT procedure are in the results section. XR CHEST 1 VIEW Routine 07/02/2018 3:39 AM Results for this PORTABLE/BEDSIDE CDT procedure are in the results section. BASIC METABOLIC PANEL Routine 07/01/2018 6:00 PM Results for this (7) CDT procedure are in the results section. BLOOD GAS, ARTERIAL Routine 07/01/2018 6:00 PM Results for this CDT procedure are in the results section. CBC W/PLT COUNT & AUTO STAT 07/01/2018 5:37 AM Results for this DIFFERENTIAL CDT procedure are in the results section. CBC W/PLT COUNT & AUTO STAT 07/01/2018 5:37 AM Results for this DIFFERENTIAL CDT procedure are in the results section. BASIC METABOLIC PANEL STAT 07/01/2018 5:37 AM Results for this (7) CDT procedure are in the results section. XR CHEST 1 VIEW Routine 07/01/2018 4:43 AM Results for this PORTABLE/BEDSIDE CDT procedure are in the results section. ECHOCARDIOGRAM REPORT - 06/30/2018 9:22 PM SCAN CDT TRANSFUSION SERVICE 06/30/2018 6:03 PM REPORT - SCAN CDT CBC W/PLT COUNT & AUTO Routine 06/30/2018 3:08 PM Results for this DIFFERENTIAL CDT procedure are in the results section. MAGNESIUM Routine 06/30/2018 3:08 PM Results for this CDT procedure are in the results section. BASIC METABOLIC PANEL Routine 06/30/2018 3:08 PM Results for this (7) CDT procedure are in the results section. CBC W/PLT COUNT & AUTO Routine 06/30/2018 3:08 PM Results for this DIFFERENTIAL CDT procedure are in the results section. 2D ECHO W/ DOPPLER STAT 06/30/2018 8:36 AM Results for this (CW/PW/COLOR) CDT procedure are in the results section. XR CHEST 1 VIEW Routine 06/30/2018 6:25 AM Results for this PORTABLE/BEDSIDE CDT procedure are in the results section. CBC W/PLT COUNT & AUTO STAT 06/30/2018 4:33 AM Results for this DIFFERENTIAL CDT procedure are in the results section. LACTIC ACID, ARTERIAL STAT 06/30/2018 4:33 AM Results for this CDT procedure are in the results section. CBC W/PLT COUNT & AUTO STAT 06/30/2018 4:33 AM Results for this DIFFERENTIAL CDT procedure are in the results section. BLOOD GAS, ARTERIAL Routine 06/30/2018 4:33 AM Results for this CDT procedure are in the results section. HEPATIC FUNCTION PANEL STAT 06/30/2018 3:10 AM Results for this CDT procedure are in the results section. B-TYPE NATRIURETIC STAT 06/30/2018 3:10 AM Results for this FACTOR (BNP) CDT procedure are in the results section. XR CHEST 1 VIEW STAT 06/30/2018 2:09 AM Results for this PORTABLE/BEDSIDE CDT procedure are in the results section. CBC W/PLT COUNT & AUTO STAT 06/30/2018 1:40 AM Results for this DIFFERENTIAL CDT procedure are in the results section. LACTIC ACID, ARTERIAL STAT 06/30/2018 1:40 AM Results for this CDT procedure are in the results section. OXYGEN SATURATION, STAT 06/30/2018 1:40 AM Results for this MEASURED CDT procedure are in the results section. PROTHROMBIN TIME/INR STAT 06/30/2018 1:40 AM Results for this CDT procedure are in the results section. APTT STAT 06/30/2018 1:40 AM Results for this CDT procedure are in the results section. BASIC METABOLIC PANEL STAT 06/30/2018 1:40 AM Results for this (7) CDT procedure are in the results section. CBC W/PLT COUNT & AUTO STAT 06/30/2018 1:40 AM Results for this DIFFERENTIAL CDT procedure are in the results section. BLOOD GAS, ARTERIAL Routine 06/30/2018 1:40 AM Results for this CDT procedure are in the results section. PREPARE RBC Routine 06/30/2018 1:27 AM Results for this CDT procedure are in the results section. POCT-ACT Routine 06/30/2018 12:52 AM Results for this CDT procedure are in the results section. POCT-ACT Routine 06/29/2018 11:59 PM Results for this CDT procedure are in the results section. POCT-ACT Routine 06/29/2018 11:23 PM Results for this CDT procedure are in the results section. POCT-ACT Routine 06/29/2018 11:09 PM Results for this CDT procedure are in the results section. HGB/HCT (H&H) - STAT STAT 06/29/2018 11:07 PM Results for this LAB CDT procedure are in the results section. GLUCOSE-STAT LAB STAT 06/29/2018 11:07 PM Results for this CDT procedure are in the results section. POTASSIUM-STAT LAB STAT 06/29/2018 11:07 PM Results for this CDT procedure are in the results section. SODIUM NA-STAT LAB STAT 06/29/2018 11:07 PM Results for this CDT procedure are in the results section. BLOOD GAS, ARTERIAL STAT 06/29/2018 11:07 PM Results for this CDT procedure are in the results section. FILTER IONIZED CALCIUM STAT 06/29/2018 11:07 PM Results for this CDT procedure are in the results section. RRL CRITICAL LABS STAT 06/29/2018 11:07 PM Results for this (ABG,NA,K,H&H,GLUCOSE) CDT procedure are in the results section. ANESTHESIA CONOR Routine 06/29/2018 10:41 PM Results for this CDT procedure are in the results section. CBC W/PLT COUNT & AUTO STAT 06/29/2018 8:52 PM Results for this DIFFERENTIAL CDT procedure are in the results section. TYPE AND SCREEN, Routine 06/29/2018 8:52 PM Results for this AUTOMATED CDT procedure are in the results section. B-TYPE NATRIURETIC STAT 06/29/2018 8:52 PM Results for this FACTOR (BNP) CDT procedure are in the results section. PROTHROMBIN TIME/INR STAT 06/29/2018 8:52 PM Results for this CDT procedure are in the results section. APTT STAT 06/29/2018 8:52 PM Results for this CDT procedure are in the results section. BASIC METABOLIC PANEL STAT 06/29/2018 8:52 PM Results for this (7) CDT procedure are in the results section. CBC W/PLT COUNT & AUTO STAT 06/29/2018 8:52 PM Results for this DIFFERENTIAL CDT procedure are in the results section. 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 Signed: George Rincon MD Report Verified Date/Time:11/01/2018 18:12:19 Reading Location: [facility] [id number] Angio Body Reading Room Addendum Ends FINAL REPORT CT angiography of the thoracoabdominal aorta and pelvic arteries, 31 October 2018 INDICATION: This is a 73 year old female with with endostent placement in the descending thoracic aorta, an endostent placement in the infrarenal abdominal aorta presents for follow-up assessment. There is a clinical concern of aortic aneurysm. This study is performed in an attempt to avoid an invasive procedure. TECHNIQUE: Spiral acquisition before and during intravenous contrast administration using a Wilfredo CT scanner. Images were obtained before and during the dynamic passage of intravenous contrast material.Multi-planar 3-D volume-rendering reconstruction was performed using an independent workstation interactively by the interpreting physician as well as the 3-D specialist for optimal visualization of the thoracoabdominal aorta, the pelvic arteries as well as its proximal branches. Note, patient has a Life Vest on. It is suggested patient to remove the Life Vest temporarily during scanning in order to obtain optimal quality data, however, patient declined. Patient's wish is respected, however, as a result, significant beam hardening and streak artefact is present. Radiation dosage was increased in order to combat the artefact. Please refer to the contrast sheet scanned in the EPIC system for the amount and route of contrast given. This exam was performed according to our departmental dose-optimisation programme, which includes automated exposure control, adjustment of the mA and/or kV according to patient size and/or use of iterative reconstruction technique. Dose modulation, iterative reconstruction, and/or weight based adjustment of the mA/kV was utilized to reduce the radiation dose to as low as reasonably achievable. FINDINGS: VASCULAR: The central pulmonary artery is mildly prominent. The cardiac chambers demonstrate normal atrioventricular and ventriculoarterial concordance, and systemic and pulmonary venous return. The left ventricle is substantially enlarged. Left atrial enlargement is identified. Coronary artery origins are normal and scattered calcification is identified in the LAD and LCx in the RCA territory. The ascending thoracic aorta is relatively unremarkable, as well as the transverse arch. Arch vessel branching pattern is normal and the visualised arch vessels are seen to be widely patent proximally. The left common carotid artery arises from the innominate artery, common variant. The proximal descending thoracic aorta is unremarkable. There is a endostent place starting at the juncture of the proximal/mid descending thoracic aorta extending into the very distal descending thoracic aorta and terminates near the diaphragmatic hiatus. Immediately distal to the stent, at the juncture of the descending thoracic aorta/abdominal aorta, substantial enlargement of the aorta is identified. See dimensions below for details. In fact, some contrast is seen outside the most distal margin of the stent, likely as a result of continued dilation of the aorta distal to the endostent (can be regarded as distal type I endoleak). See snapshot for details. Thereafter, the aorta tapers towards the renal level. In the infrarenal abdominal aorta, endostent is identified, with the iliac limbs terminates in the left and the right common iliac arteries. The endostent and the abdominal aorta is well-positioned. The common iliac, external iliac, and the common femoral arteries, bilaterally, are patent. However, moderate circumferential calcification is identified throughout the course of the pelvic arteries. No obstructive lesion is identified. The origin of the right external iliac artery is tortuous. Diffuse calcification is seen throughout the course of the internal iliac arteries, bilaterally. Nonobstructive atherosclerosis is seen in the takeoff of the SFA, bilaterally. The coeliac axis, SMA, are widely patent. The BRITTANY fills retrogradely by surrounding collaterals. Single left and right renal arteries are seen that are patent. The portal vein, SMV, splenic vein are patent with no venous thrombus identified. Single left and right renal veins are seen draining normally into the IVC. Quantitative dimensions of the aorta are as follows: 3.5 cm at the sinuses of Valsalva (the sino-tubular junction is preserved); 3.5 x 3.5 cm at the proximal ascending thoracic aorta; 3.9 x 3.8cm at the mid ascending aorta; 3.6 cm at the distal ascending aorta; 3.1 cm at the mid transverse arch; 3.4 cm at the proximal descending aorta; 3.1 cm at the mid descending aorta; 9.4 x 7.5 cm at the diaphragmatic hiatus. In the abdomen,the aorta measures3.5 x 3.7 cm at the mesenteric segment; 3.1cm at the renal segment; 3.0 x 2.2 cm in the infrarenal level. In 2017 [facility] examination, the maximum diameter at the diaphragmatic hiatus was 5.8 x 4.7 cm, remeasurement, confirming substantial enlargement NON-VASCULAR: The visualised thyroid gland is unremarkable. The chest wall mediastinum has no acute abnormalities identified. No significant adenopathy is seen. In the lung windows, no endobronchial lesion is seen, and no pleural effusion is identified. Diffuse centrilobular emphysematous changes are noted. Significant artefact is identified due to the life vest, in the lung bases. Overall, no suspicious pulmonary nodule is identified. In the abdomen, the liver and spleen appears unremarkable. The liver edge is smooth. No abnormal enhancing structure is identified. Gallstones are seen in the gallbladder with no wall thickening identified. The pancreas appears unremarkable. Calcified granuloma is identified in the spleen. There is a hypodensity identified in the posterior aspect of the spleen, image 162, measure as approximately 3.1 x 4.2 cm in diameter. This represent a cyst, haemangioma, to name a few differential diagnosis. No acute renal pathology is seen and no hydronephrosis or perirenal fluid collection is identified. A simple appearing cyst is identified in the medial aspect of the right kidney, at image 196, measure 2.2 cm in diameter. 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 Bowel is not well assessed by CT angiography as enteric contrast is not given. No obvious bowel dilation is identified. Scattered colonic diverticulum is seen. The uterus is identified. No obvious abnormal adnexal mass is seen and CT is not optimized in the assessment of pelvic gynecological structures. The bladder appears unremarkable. In the bony structures, no acute bony pathology is appreciated. Degenerative changes are noted. CONCLUSIONS: 1.The ascending thoracic aorta is unremarkable. The transverse arch is unremarkable. Endostent is identified in the descending thoracic aorta that is well-positioned. No endoleak is identified. However, distal to the endostent, continued dilation of the aorta is identified near the diaphragmatic hiatus with dimensions as described above. Due to the continued dilation, some contrast is seen outside the stent, inside the [place] aorta (essentially present Type I endoleak). In the infrarenal abdominal aorta, aortic stent is identified, that is well-positioned. In the available images, no endoleak is present. The pelvic arteries are diffusely calcified circumferentially, however, no obstructive lesion is present. No acute aortic dissection is identified in the entire thoracoabdominal aorta. Quantitative dimensions of the thoracoabdominal aorta as described above. The maximum diameter at the diaphragmatic hiatus, distal to the endostent, is measured to be approximately 9.4 x 7.5 cm in diameter, when compared to 5.8 x 4.7 cm in 2017, confirming substantial enlargement. As expected, nonobstructive intraluminal thrombus is identified, in the right lateral aspect of the aorta at the level of the dilation. Please See snapshot for details. 2.Normal coronary artery origins. Scattered coronary artery calcification is identified. 3.Diffuse centrilobular emphysematous changes. No pulmonary nodule is seen. The central pulmonary artery is mildly prominent. 4.Other findings as described above. 5.An addendum will be dictated by the Sales Training Representative Radiologist regarding the nonvascular findings. Signed: Bryan Mahajan MD Report Verified Date/Time:10/31/2018 16:01:37 Reading Location: [place] [address] Cardiology MRI Procedure Note Interface, External Ris In - 11/01/2018 6:14 PM CDT Addendum Begins REPORT STATUS:A Addendum: I agree with the previously described non vascular findings. Signed: George Rincon MD Report Verified Date/Time: 11/01/2018 18:12:19 Reading Location: [place] [address] Angio Body Reading Room Addendum Ends FINAL REPORT CT angiography of the thoracoabdominal aorta and pelvic arteries, 31 October 2018 INDICATION: This is a 73 year old female with with endostent placement in the descending thoracic aorta, an endostent placement in the infrarenal abdominal aorta presents for follow-up assessment. There is a clinical concern of aortic aneurysm. This study is performed in an attempt to avoid an invasive procedure. TECHNIQUE: Spiral acquisition before and during intravenous contrast administration using a Wilfredo CT scanner. Images were obtained before and during the dynamic passage of intravenous contrast material. Multi-planar 3-D volume-rendering reconstruction was performed using an independent workstation interactively by the interpreting physician as well as the 3-D specialist for optimal visualization of the thoracoabdominal aorta, the pelvic arteries as well as its proximal branches. Note, patient has a Life Vest on. It is suggested patient to remove the Life Vest temporarily during scanning in order to obtain optimal quality data, however, patient declined. Patient's wish is respected, however, as a result, significant beam hardening and streak artefact is present. Radiation dosage was increased in order to combat the artefact. Please refer to the contrast sheet scanned in the EPIC system for the amount and route of contrast given. This exam was performed according to our departmental dose-optimisation programme, which includes automated exposure control, adjustment of the mA and/or kV according to patient size and/or use of iterative reconstruction technique. Dose modulation, iterative reconstruction, and/or weight based adjustment of the mA/kV was utilized to reduce the radiation dose to as low as reasonably achievable. FINDINGS: VASCULAR: The central pulmonary artery is mildly prominent. The cardiac chambers demonstrate normal atrioventricular and ventriculoarterial concordance, and systemic and pulmonary venous return. The left ventricle is substantially enlarged. Left atrial enlargement is identified. Coronary artery origins are normal and scattered calcification is identified in the LAD and LCx in the RCA territory. The ascending thoracic aorta is relatively unremarkable, as well as the transverse arch. Arch vessel branching pattern is normal and the visualised arch vessels are seen to be widely patent proximally. The left common carotid artery arises from the innominate artery, common variant. The proximal descending thoracic aorta is unremarkable. There is a endostent place starting at the juncture of the proximal/mid descending thoracic aorta extending into the very distal descending thoracic aorta and terminates near the diaphragmatic hiatus. Immediately distal to the stent, at the juncture of the descending thoracic aorta/abdominal aorta, substantial enlargement of the aorta is identified. See dimensions below for details. In fact, some contrast is seen outside the most distal margin of the stent, likely as a result of continued dilation of the aorta distal to the endostent (can be regarded as distal type I endoleak). See snapshot for details. Thereafter, the aorta tapers towards the renal level. In the infrarenal abdominal aorta, endostent is identified, with the iliac limbs terminates in the left and the right common iliac arteries. The endostent and the abdominal aorta is well-positioned. The common iliac, external iliac, and the common femoral arteries, bilaterally, are patent. However, moderate circumferential calcification is identified throughout the course of the pelvic arteries. No obstructive lesion is identified. The origin of the right external iliac artery is tortuous. Diffuse calcification is seen throughout the course of the internal iliac arteries, bilaterally. Nonobstructive atherosclerosis is seen in the takeoff of the SFA, bilaterally. The coeliac axis, SMA, are widely patent. The BRITTANY fills retrogradely by surrounding collaterals. Single left and right renal arteries are seen that are patent. The portal vein, SMV, splenic vein are patent with no venous thrombus identified. Single left and right renal veins are seen draining normally into the IVC. Quantitative dimensions of the aorta are as follows: 3.5 cm at the sinuses of Valsalva (the sino-tubular junction is preserved); 3.5 x 3.5 cm at the proximal ascending thoracic aorta; 3.9 x 3.8 cm at the mid ascending aorta; 3.6 cm at the distal ascending aorta; 3.1 cm at the mid transverse arch; 3.4 cm at the proximal descending aorta; 3.1 cm at the mid descending aorta; 9.4 x 7.5 cm at the diaphragmatic hiatus. In the abdomen, the aorta measures 3.5 x 3.7 cm at the mesenteric segment; 3.1 cm at the renal segment; 3.0 x 2.2 cm in the infrarenal level. In 2017 [facility] examination, the maximum diameter at the diaphragmatic hiatus was 5.8 x 4.7 cm, remeasurement, confirming substantial enlargement NON-VASCULAR: The visualised thyroid gland is unremarkable. The chest wall mediastinum has no acute abnormalities identified. No significant adenopathy is seen. In the lung windows, no endobronchial lesion is seen, and no pleural effusion is identified. Diffuse centrilobular emphysematous changes are noted. Significant artefact is identified due to the life vest, in the lung bases. Overall, no suspicious pulmonary nodule is identified. In the abdomen, the liver and spleen appears unremarkable. The liver edge is smooth. No abnormal enhancing structure is identified. Gallstones are seen in the gallbladder with no wall thickening identified. The pancreas appears unremarkable. Calcified granuloma is identified in the spleen. There is a hypodensity identified in the posterior aspect of the spleen, image 162, measure as approximately 3.1 x 4.2 cm in diameter. This represent a cyst, haemangioma, to name a few differential diagnosis. No acute renal pathology is seen and no hydronephrosis or perirenal fluid collection is identified. A simple appearing cyst is identified in the medial aspect of the right kidney, at image 196, measure 2.2 cm in diameter. 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 Bowel is not well assessed by CT angiography as enteric contrast is not given. No obvious bowel dilation is identified. Scattered colonic diverticulum is seen. The uterus is identified. No obvious abnormal adnexal mass is seen and CT is not optimized in the assessment of pelvic gynecological structures. The bladder appears unremarkable. In the bony structures, no acute bony pathology is appreciated. Degenerative changes are noted. CONCLUSIONS: 1. The ascending thoracic aorta is unremarkable. The transverse arch is unremarkable. Endostent is identified in the descending thoracic aorta that is well-positioned. No endoleak is identified. However, distal to the endostent, continued dilation of the aorta is identified near the diaphragmatic hiatus with dimensions as described above. Due to the continued dilation, some contrast is seen outside the stent, inside the [place] aorta (essentially present Type I endoleak). In the infrarenal abdominal aorta, aortic stent is identified, that is well-positioned. In the available images, no endoleak is present. The pelvic arteries are diffusely calcified circumferentially, however, no obstructive lesion is present. No acute aortic dissection is identified in the entire thoracoabdominal aorta. Quantitative dimensions of the thoracoabdominal aorta as described above. The maximum diameter at the diaphragmatic hiatus, distal to the endostent, is measured to be approximately 9.4 x 7.5 cm in diameter, when compared to 5.8 x 4.7 cm in 2017, confirming substantial enlargement. As expected, nonobstructive intraluminal thrombus is identified, in the right lateral aspect of the aorta at the level of the dilation. Please See snapshot for details. 2. Normal coronary artery origins. Scattered coronary artery calcification is identified. 3. Diffuse centrilobular emphysematous changes. No pulmonary nodule is seen. The central pulmonary artery is mildly prominent. 4. Other findings as described above. 5. An addendum will be dictated by the Sales Training Representative Radiologist regarding the nonvascular findings. Signed: Bryan Mahajan MD Report Verified Date/Time: 10/31/2018 16:01:37 Reading Location: [place] [address] Cardiology MRI Performing Organization Address City/State/Zipcode Phone Number [facility] CTA abdomen & pelvis (10/31/2018 1:11 PM CDT) Specimen Narrative Performed At Addendum Begins [facility] REPORT STATUS:A Addendum: I agree with the previously described non vascular findings. Signed: George Rincon MD Report Verified Date/Time:11/01/2018 18:12:19 Reading Location: [place] [id number] Angio Body Reading Room Addendum Ends FINAL REPORT CT angiography of the thoracoabdominal aorta and pelvic arteries, 31 October 2018 INDICATION: This is a 73 year old female with with endostent placement in the descending thoracic aorta, an endostent placement in the infrarenal abdominal aorta presents for follow-up assessment. There is a clinical concern of aortic aneurysm. This study is performed in an attempt to avoid an invasive procedure. TECHNIQUE: Spiral acquisition before and during intravenous contrast administration using a Wilfredo CT scanner. Images were obtained before and during the dynamic passage of intravenous contrast material.Multi-planar 3-D volume-rendering reconstruction was performed using an independent workstation interactively by the interpreting physician as well as the 3-D specialist for optimal visualization of the thoracoabdominal aorta, the pelvic arteries as well as its proximal branches. Note, patient has a Life Vest on. It is suggested patient to remove the Life Vest temporarily during scanning in order to obtain optimal quality data, however, patient declined. Patient's wish is respected, however, as a result, significant beam hardening and streak artefact is present. Radiation dosage was increased in order to combat the artefact. Please refer to the contrast sheet scanned in the EPIC system for the amount and route of contrast given. This exam was performed according to our departmental dose-optimisation programme, which includes automated exposure control, adjustment of the mA and/or kV according to patient size and/or use of iterative reconstruction technique. Dose modulation, iterative reconstruction, and/or weight based adjustment of the mA/kV was utilized to reduce the radiation dose to as low as reasonably achievable. FINDINGS: VASCULAR: The central pulmonary artery is mildly prominent. The cardiac chambers demonstrate normal atrioventricular and ventriculoarterial concordance, and systemic and pulmonary venous return. The left ventricle is substantially enlarged. Left atrial enlargement is identified. Coronary artery origins are normal and scattered calcification is identified in the LAD and LCx in the RCA territory. The ascending thoracic aorta is relatively unremarkable, as well as the transverse arch. Arch vessel branching pattern is normal and the visualised arch vessels are seen to be widely patent proximally. The left common carotid artery arises from the innominate artery, common variant. The proximal descending thoracic aorta is unremarkable. There is a endostent place starting at the juncture of the proximal/mid descending thoracic aorta extending into the very distal descending thoracic aorta and terminates near the diaphragmatic hiatus. Immediately distal to the stent, at the juncture of the descending thoracic aorta/abdominal aorta, substantial enlargement of the aorta is identified. See dimensions below for details. In fact, some contrast is seen outside the most distal margin of the stent, likely as a result of continued dilation of the aorta distal to the endostent (can be regarded as distal type I endoleak). See snapshot for details. Thereafter, the aorta tapers towards the renal level. In the infrarenal abdominal aorta, endostent is identified, with the iliac limbs terminates in the left and the right common iliac arteries. The endostent and the abdominal aorta is well-positioned. The common iliac, external iliac, and the common femoral arteries, bilaterally, are patent. However, moderate circumferential calcification is identified throughout the course of the pelvic arteries. No obstructive lesion is identified. The origin of the right external iliac artery is tortuous. Diffuse calcification is seen throughout the course of the internal iliac arteries, bilaterally. Nonobstructive atherosclerosis is seen in the takeoff of the SFA, bilaterally. The coeliac axis, SMA, are widely patent. The BRITTANY fills retrogradely by surrounding collaterals. Single left and right renal arteries are seen that are patent. The portal vein, SMV, splenic vein are patent with no venous thrombus identified. Single left and right renal veins are seen draining normally into the IVC. Quantitative dimensions of the aorta are as follows: 3.5 cm at the sinuses of Valsalva (the sino-tubular junction is preserved); 3.5 x 3.5 cm at the proximal ascending thoracic aorta; 3.9 x 3.8cm at the mid ascending aorta; 3.6 cm at the distal ascending aorta; 3.1 cm at the mid transverse arch; 3.4 cm at the proximal descending aorta; 3.1 cm at the mid descending aorta; 9.4 x 7.5 cm at the diaphragmatic hiatus. In the abdomen,the aorta measures3.5 x 3.7 cm at the mesenteric segment; 3.1cm at the renal segment; 3.0 x 2.2 cm in the infrarenal level. In 2017 [facility] examination, the maximum diameter at the diaphragmatic hiatus was 5.8 x 4.7 cm, remeasurement, confirming substantial enlargement NON-VASCULAR: The visualised thyroid gland is unremarkable. The chest wall mediastinum has no acute abnormalities identified. No significant adenopathy is seen. In the lung windows, no endobronchial lesion is seen, and no pleural effusion is identified. Diffuse centrilobular emphysematous changes are noted. Significant artefact is identified due to the life vest, in the lung bases. Overall, no suspicious pulmonary nodule is identified. In the abdomen, the liver and spleen appears unremarkable. The liver edge is smooth. No abnormal enhancing structure is identified. Gallstones are seen in the gallbladder with no wall thickening identified. The pancreas appears unremarkable. Calcified granuloma is identified in the spleen. There is a hypodensity identified in the posterior aspect of the spleen, image 162, measure as approximately 3.1 x 4.2 cm in diameter. This represent a cyst, haemangioma, to name a few differential diagnosis. No acute renal pathology is seen and no hydronephrosis or perirenal fluid collection is identified. A simple appearing cyst is identified in the medial aspect of the right kidney, at image 196, measure 2.2 cm in diameter. 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 Bowel is not well assessed by CT angiography as enteric contrast is not given. No obvious bowel dilation is identified. Scattered colonic diverticulum is seen. The uterus is identified. No obvious abnormal adnexal mass is seen and CT is not optimized in the assessment of pelvic gynecological structures. The bladder appears unremarkable. In the bony structures, no acute bony pathology is appreciated. Degenerative changes are noted. CONCLUSIONS: 1.The ascending thoracic aorta is unremarkable. The transverse arch is unremarkable. Endostent is identified in the descending thoracic aorta that is well-positioned. No endoleak is identified. However, distal to the endostent, continued dilation of the aorta is identified near the diaphragmatic hiatus with dimensions as described above. Due to the continued dilation, some contrast is seen outside the stent, inside the [place] aorta (essentially present Type I endoleak). In the infrarenal abdominal aorta, aortic stent is identified, that is well-positioned. In the available images, no endoleak is present. The pelvic arteries are diffusely calcified circumferentially, however, no obstructive lesion is present. No acute aortic dissection is identified in the entire thoracoabdominal aorta. Quantitative dimensions of the thoracoabdominal aorta as described above. The maximum diameter at the diaphragmatic hiatus, distal to the endostent, is measured to be approximately 9.4 x 7.5 cm in diameter, when compared to 5.8 x 4.7 cm in 2017, confirming substantial enlargement. As expected, nonobstructive intraluminal thrombus is identified, in the right lateral aspect of the aorta at the level of the dilation. Please See snapshot for details. 2.Normal coronary artery origins. Scattered coronary artery calcification is identified. 3.Diffuse centrilobular emphysematous changes. No pulmonary nodule is seen. The central pulmonary artery is mildly prominent. 4.Other findings as described above. 5.An addendum will be dictated by the Sales Training Representative Radiologist regarding the nonvascular findings. Signed: Bryan Mahajan MD Report Verified Date/Time:10/31/2018 16:01:37 Reading Location: [place] [address] Cardiology MRI Procedure Note Interface, External Ris In - 11/01/2018 6:14 PM CDT Addendum Begins REPORT STATUS:A Addendum: I agree with the previously described non vascular findings. Signed: George Rincon MD Report Verified Date/Time: 11/01/2018 18:12:19 Reading Location: [facility] [address] Angio Body Reading Room Addendum Ends FINAL REPORT CT angiography of the thoracoabdominal aorta and pelvic arteries, 31 October 2018 INDICATION: This is a 73 year old female with with endostent placement in the descending thoracic aorta, an endostent placement in the infrarenal abdominal aorta presents for follow-up assessment. There is a clinical concern of aortic aneurysm. This study is performed in an attempt to avoid an invasive procedure. TECHNIQUE: Spiral acquisition before and during intravenous contrast administration using a Wilfredo CT scanner. Images were obtained before and during the dynamic passage of intravenous contrast material. Multi-planar 3-D volume-rendering reconstruction was performed using an independent workstation interactively by the interpreting physician as well as the 3-D specialist for optimal visualization of the thoracoabdominal aorta, the pelvic arteries as well as its proximal branches. Note, patient has a Life Vest on. It is suggested patient to remove the Life Vest temporarily during scanning in order to obtain optimal quality data, however, patient declined. Patient's wish is respected, however, as a result, significant beam hardening and streak artefact is present. Radiation dosage was increased in order to combat the artefact. Please refer to the contrast sheet scanned in the EPIC system for the amount and route of contrast given. This exam was performed according to our departmental dose-optimisation programme, which includes automated exposure control, adjustment of the mA and/or kV according to patient size and/or use of iterative reconstruction technique. Dose modulation, iterative reconstruction, and/or weight based adjustment of the mA/kV was utilized to reduce the radiation dose to as low as reasonably achievable. FINDINGS: VASCULAR: The central pulmonary artery is mildly prominent. The cardiac chambers demonstrate normal atrioventricular and ventriculoarterial concordance, and systemic and pulmonary venous return. The left ventricle is substantially enlarged. Left atrial enlargement is identified. Coronary artery origins are normal and scattered calcification is identified in the LAD and LCx in the RCA territory. The ascending thoracic aorta is relatively unremarkable, as well as the transverse arch. Arch vessel branching pattern is normal and the visualised arch vessels are seen to be widely patent proximally. The left common carotid artery arises from the innominate artery, common variant. The proximal descending thoracic aorta is unremarkable. There is a endostent place starting at the juncture of the proximal/mid descending thoracic aorta extending into the very distal descending thoracic aorta and terminates near the diaphragmatic hiatus. Immediately distal to the stent, at the juncture of the descending thoracic aorta/abdominal aorta, substantial enlargement of the aorta is identified. See dimensions below for details. In fact, some contrast is seen outside the most distal margin of the stent, likely as a result of continued dilation of the aorta distal to the endostent (can be regarded as distal type I endoleak). See snapshot for details. Thereafter, the aorta tapers towards the renal level. In the infrarenal abdominal aorta, endostent is identified, with the iliac limbs terminates in the left and the right common iliac arteries. The endostent and the abdominal aorta is well-positioned. The common iliac, external iliac, and the common femoral arteries, bilaterally, are patent. However, moderate circumferential calcification is identified throughout the course of the pelvic arteries. No obstructive lesion is identified. The origin of the right external iliac artery is tortuous. Diffuse calcification is seen throughout the course of the internal iliac arteries, bilaterally. Nonobstructive atherosclerosis is seen in the takeoff of the SFA, bilaterally. The coeliac axis, SMA, are widely patent. The BRITTANY fills retrogradely by surrounding collaterals. Single left and right renal arteries are seen that are patent. The portal vein, SMV, splenic vein are patent with no venous thrombus identified. Single left and right renal veins are seen draining normally into the IVC. Quantitative dimensions of the aorta are as follows: 3.5 cm at the sinuses of Valsalva (the sino-tubular junction is preserved); 3.5 x 3.5 cm at the proximal ascending thoracic aorta; 3.9 x 3.8 cm at the mid ascending aorta; 3.6 cm at the distal ascending aorta; 3.1 cm at the mid transverse arch; 3.4 cm at the proximal descending aorta; 3.1 cm at the mid descending aorta; 9.4 x 7.5 cm at the diaphragmatic hiatus. In the abdomen, the aorta measures 3.5 x 3.7 cm at the mesenteric segment; 3.1 cm at the renal segment; 3.0 x 2.2 cm in the infrarenal level. In 2017 [facility] examination, the maximum diameter at the diaphragmatic hiatus was 5.8 x 4.7 cm, remeasurement, confirming substantial enlargement NON-VASCULAR: The visualised thyroid gland is unremarkable. The chest wall mediastinum has no acute abnormalities identified. No significant adenopathy is seen. In the lung windows, no endobronchial lesion is seen, and no pleural effusion is identified. Diffuse centrilobular emphysematous changes are noted. Significant artefact is identified due to the life vest, in the lung bases. Overall, no suspicious pulmonary nodule is identified. In the abdomen, the liver and spleen appears unremarkable. The liver edge is smooth. No abnormal enhancing structure is identified. Gallstones are seen in the gallbladder with no wall thickening identified. The pancreas appears unremarkable. Calcified granuloma is identified in the spleen. There is a hypodensity identified in the posterior aspect of the spleen, image 162, measure as approximately 3.1 x 4.2 cm in diameter. This represent a cyst, haemangioma, to name a few differential diagnosis. No acute renal pathology is seen and no hydronephrosis or perirenal fluid collection is identified. A simple appearing cyst is identified in the medial aspect of the right kidney, at image 196, measure 2.2 cm in diameter. 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 Bowel is not well assessed by CT angiography as enteric contrast is not given. No obvious bowel dilation is identified. Scattered colonic diverticulum is seen. The uterus is identified. No obvious abnormal adnexal mass is seen and CT is not optimized in the assessment of pelvic gynecological structures. The bladder appears unremarkable. In the bony structures, no acute bony pathology is appreciated. Degenerative changes are noted. CONCLUSIONS: 1. The ascending thoracic aorta is unremarkable. The transverse arch is unremarkable. Endostent is identified in the descending thoracic aorta that is well-positioned. No endoleak is identified. However, distal to the endostent, continued dilation of the aorta is identified near the diaphragmatic hiatus with dimensions as described above. Due to the continued dilation, some contrast is seen outside the stent, inside the [place] aorta (essentially present Type I endoleak). In the infrarenal abdominal aorta, aortic stent is identified, that is well-positioned. In the available images, no endoleak is present. The pelvic arteries are diffusely calcified circumferentially, however, no obstructive lesion is present. No acute aortic dissection is identified in the entire thoracoabdominal aorta. Quantitative dimensions of the thoracoabdominal aorta as described above. The maximum diameter at the diaphragmatic hiatus, distal to the endostent, is measured to be approximately 9.4 x 7.5 cm in diameter, when compared to 5.8 x 4.7 cm in 2017, confirming substantial enlargement. As expected, nonobstructive intraluminal thrombus is identified, in the right lateral aspect of the aorta at the level of the dilation. Please See snapshot for details. 2. Normal coronary artery origins. Scattered coronary artery calcification is identified. 3. Diffuse centrilobular emphysematous changes. No pulmonary nodule is seen. The central pulmonary artery is mildly prominent. 4. Other findings as described above. 5. An addendum will be dictated by the Sales Training Representative Radiologist regarding the nonvascular findings. Signed: Bryan Mahajan MD Report Verified Date/Time: 10/31/2018 16:01:37 Reading Location: [place] [address] Cardiology MRI Performing Organization Address City/[facility]/Zipcode Phone Number GE RIS POC-Creatinine (10/31/2018 11:51 AM CDT) POC-Creatinine 1.6 (H)Comment: TESTED AT 0.6 - 1.3 mg/dL [facility] [address] [place] [address] [place] [address] POC-EGFR 38 mL/min/1.73M2 [facility] Specimen Blood Performing Organization Address [facility] Hospitalcode Phone Number [address] [address] [phone] CENTER ECHOCARDIOGRAM REPORT - SCAN (10/17/2018 9:33 PM CDT) Narrative Performed At CBC with platelet count + automated diff (10/17/2018 11:28 AM CDT)Only the most recent of8 resultswithin the time period is included. WBC 5.9 3.5 - 10.5 K/L [facility] RBC 2.76 (L) 3.93 - 5.22 M/L [facility] Hemoglobin 8.9 (L) 11.2 - 15.7 GM/DL [facility] Hematocrit 28.3 (L) 34.1 - 44.9 % [facility] MCV 102.5 (H) 79.4 - 94.8 fL [facility] MCH 32.2 25.6 - 32.2 pg [facility] MCHC 31.4 (L) 32.2 - 35.5 GM/DL [facility] RDW 12.8 11.7 - 14.4 % [facility] Platelets 226 150 - 450 K/CU MM [facility] MPV 9.9 9.4 - 12.3 fL [facility] nRBC 0 0 - 0 /100 WBC [facility] % Neutros 80 % [facility] % Lymphs 12 % [facility] % Monos 5 % [facility] % Eos 2 % [facility] % Baso 1 % [facility] # Neutros 4.75 1.56 - 6.13 K/L [facility] # Lymphs 0.71 (L) 1.18 - 3.74 K/L [facility] # Monos 0.31 0.24 - 0.36 K/L [facility] # Eos 0.09 0.04 - 0.36 K/L [facility] # Baso 0.05 0.01 - 0.08 K/L [facility] Immature 0 0 - 1 % [facility] Granulocytes-[facility] Specimen Blood Performing Organization Address City/State/Zipcode Phone Number [address] [address] CENTER B-type Natriuretic Factor (BNP) (10/17/2018 11:28 AM CDT)Only the most recent of4 resultswithin the time period is included. BNP 3,381 (H) 0 - 100 pg/mL [facility] Specimen Blood Performing Organization Address City/[facility]/Zipcode Phone Number [address] [address] [phone] CENTER Basic Metabolic Panel (10/17/2018 11:28 AM CDT)Only the most recent of28 resultswithin the time period is included. Sodium 138 136 - 145 meq/L [facility] Potassium 3.6 3.5 - 5.1 meq/L [facility] Chloride 100 98 - 107 meq/L [facility] CO2 30 (H) 22 - 29 meq/L [facility] BUN 21 7 - 21 mg/dL [facility] Creatinine 1.49 (H) 0.57 - 1.25 mg/dL [facility] Glucose 182 (H) 70 - 105 mg/dL [facility] Calcium 9.7 8.4 - 10.2 mg/dL [facility] EGFR 42Comment: ESTIMATED GFR IS mL/min/1.73 sq m [facility] NOT ACCURATE CREATININE [facility] CLEARANCE IN PREDICTING GLOMERULAR FILTRATION RATE. ESTIMATED GFR IS NOT APPLICABLE FOR DIALYSIS PATIENTS. Specimen Blood Performing Organization Address City/State/Zipcode Phone Number [facility] [address] [place] [address] CENTER ECG 12 lead (10/17/2018 9:40 AM CDT)Only the most recent of4 resultswithin the time period is included. Specimen Narrative Performed At Ventricular Rate 75 BPM GE MUSE Atrial Rate 75 BPM P-R Interval 204 ms QRS Duration 86 ms Q-T Interval 386 ms QTC Calculation(Bazett) 431 ms P [place] 33 degrees R [place] -3 degrees T [place] 7 degrees Normal sinus rhythm Inferior infarct , age undetermined Abnormal ECG When compared with ECG of 13-SEP-2018 07:50, Inferior infarct is now Present Confirmed by MD THAD, OZ Beckham ([id number]) on 10/18/2018 12:22:40 PM Procedure Note Interface, External Ris In - 10/18/2018 12:22 PM CDT Ventricular Rate 75 BPM Atrial Rate 75 BPM P-R Interval 204 ms QRS Duration 86 ms Q-T Interval 386 ms QTC Calculation(Bazett) 431 ms P [place] 33 degrees R [place] -3 degrees T [place] 7 degrees Normal sinus rhythm Inferior infarct , age undetermined Abnormal ECG When compared with ECG of 13-SEP-2018 07:50, Inferior infarct is now Present Confirmed by MD THAD, OZ Beckham ([id number]) on 10/18/2018 12:22:40 PM Performing Organization Address City/State/Zipcode Phone Number DEB DOMÍNGUEZ 2D Echo W/Doppler(CW/PW/Color) (10/17/2018 8:38 AM CDT) Ejection Fraction [facility] Specimen Narrative Performed At Transthoracic Echocardiography Report (TTE) [facility] Dem[facility] Patient Nicole Walton of Study10/17/2018 MIMI Gender Female Visit [id number] Race Black NumberOP Number Date of 1945 Miranda Ewing NP Physician Age 73 year(s) Maris Antunez, RDCS Rubber Extrusion Machine Operator Jose J Guan, PhysicianMD Procedure Type of Study TTE procedure:2DECHO W DOPPLER(CW/PW/COLOR) (Routine) Indications:Known or suspected heart failure. Clinical History HGB 9.7 HCT 31.1 % COPD, CAD, CKD, CHF, DM, HTN, Emphysema, STEMI, VT s/p PCI (06/12/2016, 07/18/2017) s/p Repair, TEVAR (06/29/2018) Height: 65 inches Weight: 58.06 kg (128 lbs) BSA: 1.64 m^2 BMI: 21.3 kg/m^2 HR: 84 bpm BP: 152/95 mmHg Summary The left ventricle is chamber size (by vol index) is severely enlarged (female - LVED vol >80ml/m2). Normal LV wall thickness. The following segment(s) appear akinetic: lateral, inferolateral, basal inferior . The other segments are severely hypokinetic. Global LV systolic function severely reduced . Estimated LVEF by qualitative assessment is severely reduced (20-24%) . Allw-dy-jbxfkwui tricuspid regurgitation. Estimated peak systolic PA pressure is 60-65 mmHg . Mild to moderate central mitral regurgitation. Aortic root size (SInus of Valsalva diameter) is normal .dilated abdominal aorta. The estimated RA pressure by IVC dynamics 11-15mmHg . Previous Study Compared to the previous study there was no significant change. Signature Findings Technical Quality: Technically adequate exam. Left Ventricle The left ventricle is chamber size (by vol index) is severely enlarged (female - LVED vol >80ml/m2). No rmal LV wall thickness. The following segment(s) ap pear akinetic: lateral, inferolateral, basal in ferior . The other segments are severely hy pokinetic. Global LV systolic function severely re duced . Estimated LVEF by qualitative assessment is severely reduced (20-24%) . Left AtriumLA size is severely enlarged (>48 ml/m2) . Right VentricleNormal right ventricle structure and function. Right Atrium RA cavity size is normal . Aortic Valve Mild AoV cusp thickening. Mi ld AoV cusp calcification. Mi ld aortic regurgitation. Mitral Valve Mild MV leaflet thickening. Mild mitral annular ca lcification. Mild to moderate central mitral re gurgitation. Tricuspid YpisnVrbd-uu-dobjnvkf tricuspid regurgitation. Es timated peak systolic PA pressure is 60-65 mmHg . Pulmonic Valve Normal PV structure and function by limited views an d Doppler. AortaAortic root size (SInus of Valsalva diameter) is no rmal .dilated abdominal aorta. PericardiumNo evidence of pericardial effusion. IVC/SVC/PA/PV/PleuralThe estimated RA pressure by IVC dynamics 11-15mmHg . Chambers/Structures Left Atrium LA Volume: 90.17 ml LA Vol. Index: 55 ml/m^2 Left Ventricle LVIDd: 5.81 cm LVEDV:167.38 ml LVIDs: 5.16 cm LVESV:137.69 ml LV Septum Diastolic: 0.99 cmLVEF 2D Cube: 29.9 % LV PW Diastolic: 0.91 cm LVEDV Levy's:187.69 ml LV Length: 9.66 cm LVESV Levy's:150.28 ml LV FS: 11.2 % LVEF Levy's: 19.9 % LVEDVI: 114 ml/m^2 LVOT Diameter: 2.09 cmLVES : 92 ml/m^2 LVEF: 17.7 % Aorta Ascending Aorta: 3.53 cm Doppler/Quantitative Measurements Aortic Valve Peak Velocity: 1.63 m/s Mean Velocity: 1.11 m/s Peak Gradient: 10.66 mmHg Mean Gradient: 5.66 mmHg AV Area (continuity): 1.86 cm^2 AV VTI: 25.03 cm AR P1/2t: 510.3 msecDecelerati on Time: 1759.6 msec AV DVI: 0.54 LVOT Peak Velocity: 0.97 m/s Peak Gradient: 3.75 mmHg Mean Velocity: 0.53 m/s Mean Gradient: 1.46 mmHg LVOT Diameter: 2.09 cmLVOT VTI: 13.57 cm LVOT Area: 3.43 cm^2LVOT SV:46.53 ml LVOT CO: 3.91 l/min LVOT CI: 2.38 l/min/m^2 Procedure Note Interface, External Ris In - 10/17/2018 12:39 PM CDT Transthoracic Echocardiography Report (TTE) Demographics Patient Name DURGA CORTEZ Date of Study 10/17/2018 MIMI Gender Female Visit Number [id number] Race Black Room Number OP Number Date of 1945 Referring Rachel Ewing NP Physician Age 73 year(s) 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 Clinical History HGB 9.7 HCT 31.1 % COPD, CAD, CKD, CHF, DM, HTN, Emphysema, STEMI, VT s/p PCI (06/12/2016, 07/18/2017) s/p Repair, TEVAR (06/29/2018) Height: 65 inches Weight: 58.06 kg (128 lbs) BSA: 1.64 m^2 BMI: 21.3 kg/m^2 HR: 84 bpm BP: 152/95 mmHg Summary The left ventricle is chamber size (by vol index) is severely enlarged (female - LVED vol >80ml/m2). Normal LV wall thickness. The following segment(s) appear akinetic: lateral, inferolateral, basal inferior . The other segments are severely hypokinetic. Global LV systolic function severely reduced . Estimated LVEF by qualitative assessment is severely reduced (20-24%) . Zefo-qq-kfdnyvon tricuspid regurgitation. Estimated peak systolic PA pressure is 60-65 mmHg . Mild to moderate central mitral regurgitation. Aortic root size (SInus of Valsalva diameter) is normal .dilated abdominal aorta. The estimated RA pressure by IVC dynamics 11-15mmHg . Previous Study Compared to the previous study there was no significant change. Signature Findings Technical Quality: Technically adequate exam. Left Ventricle The left ventricle is chamber size (by vol index) is severely enlarged (female - LVED vol >80ml/m2). Normal LV wall thickness. The following segment(s) appear akinetic: lateral, inferolateral, basal inferior . The other segments are severely hypokinetic. Global LV systolic function severely reduced . Estimated LVEF by qualitative assessment is severely reduced (20-24%) . Left Atrium LA size is severely enlarged (>48 ml/m2) . Right Ventricle Normal right ventricle structure and function. Right Atrium RA cavity size is normal . Aortic Valve Mild AoV cusp thickening. Mild AoV cusp calcification. Mild aortic regurgitation. Mitral Valve Mild MV leaflet thickening. Mild mitral annular calcification. Mild to moderate central mitral regurgitation. Tricuspid Valve Waxg-se-hlvznzsl tricuspid regurgitation. Estimated peak systolic PA pressure is 60-65 mmHg . Pulmonic Valve Normal PV structure and function by limited views and Doppler. Aorta Aortic root size (SInus of Valsalva diameter) is normal .dilated abdominal aorta. Pericardium No evidence of pericardial effusion. IVC/SVC/PA/PV/Pleural The estimated RA pressure by IVC dynamics 11-15mmHg . Chambers/Structures Left Atrium LA Volume: 90.17 ml LA Vol. Index: 55 ml/m^2 Left Ventricle LVIDd: 5.81 cm LVEDV:167.38 ml LVIDs: 5.16 cm LVESV:137.69 ml LV Septum Diastolic: 0.99 cm LVEF 2D Cube: 29.9 % LV PW Diastolic: 0.91 cm LVEDV Levy's:187.69 ml LV Length: 9.66 cm LVESV Levy's:150.28 ml LV FS: 11.2 % LVEF Levy's: 19.9 % LVEDVI: 114 ml/m^2 LVOT Diameter: 2.09 cm LVESVI: 92 ml/m^2 LVEF: 17.7 % Aorta Ascending Aorta: 3.53 cm Doppler/Quantitative Measurements Aortic Valve Peak Velocity: 1.63 m/s Mean Velocity: 1.11 m/s Peak Gradient: 10.66 mmHg Mean Gradient: 5.66 mmHg AV Area (continuity): 1.86 cm^2 AV VTI: 25.03 cm AR P1/2t: 510.3 msec Deceleration Time: 1759.6 msec AV DVI: 0.54 LVOT Peak Velocity: 0.97 m/s Peak Gradient: 3.75 mmHg Mean Velocity: 0.53 m/s Mean Gradient: 1.46 mmHg LVOT Diameter: 2.09 cm LVOT VTI: 13.57 cm LVOT Area: 3.43 cm^2 LVOT SV:46.53 ml LVOT CO: 3.91 l/min LVOT CI: 2.38 l/min/m^2 Performing Organization Address City/State/Zipcode Phone Number [facility] TSH/Free T4 If Indicated (09/13/2018 10:48 AM CDT) TSH 0.46 0.35 - 4.94 uIU/mL [facility] Specimen Blood Performing Organization Address City/[facility]code Phone Number [address] [address] CENTER Prothrombin time/INR (09/13/2018 10:48 AM CDT)Only the most recent of20 resultswithin the time period is included. Protime 13.3 11.9 - 14.2 seconds [facility] INR 1.1 <=5.9 [facility] Specimen Blood Narrative Performed At Effective 08/30/2018: PT Reference Range [facility] Change New: 11.9-14.2Previous: 11.7-14.7 RECOMMENDED COUMADIN/WARFARIN INR THERAPY RANGES STANDARD DOSE: 2.0-3.0Includes: PROPHYLAXIS for venous thrombosis, systemic embolization; TREATMENT for venous thrombosis and/or pulmonary embolus. HIGH RISK: Target INR is 2.5-3.5 for patients wiht mechanical heart valves. Performing Organization Address City/[facility]code Phone Number [address] [address] [phone] CENTER Uric acid (09/13/2018 10:48 AM CDT) Uric Acid 5.5 2.6 - 7.2 mg/dL [facility] Specimen Blood Performing Organization Address City/[facility] Phone Number [address] [address] CENTER Prealbumin (09/13/2018 10:48 AM CDT) Prealbumin 19 14 - 45 mg/dL [facility] Specimen Blood Performing Organization Address [facility] Phone Number [address] [address] CENTER Magnesium (09/13/2018 10:48 AM CDT)Only the most recent of23 resultswithin the time period is included. Magnesium 2.0 1.6 - 2.6 mg/dL [facility] Specimen Blood Performing Organization Address City/State/Zipcode Phone Number [address] [address] [phone] [place] Hemoglobin A1c (09/13/2018 10:48 AM CDT) Hemoglobin A1C 5.0 4.3 - 6.1 % [facility] Specimen Blood Performing Organization Address City/[facility] Phone Number [address] [address] [place] Lipid panel (09/13/2018 10:48 AM CDT) Triglycerides 82 mg/dL [facility] Cholesterol 185 mg/dL [facility] HDL 111 mg/dL [facility] LDL Calculated 58 mg/dL [facility] Specimen Blood Narrative Performed At Triglyceride Reference Range: [facility] Low Risk <150 [id number] High Risk 200-499 Very High Risk>=500 Cholesterol Reference Range: Low Risk <200 [id number] High Risk>240 HDL Cholesterol Reference Range: Low Risk >=60 High Risk <40 LDL Cholesterol Reference Range: Optimal<100 Near [id number] Very High >=190 Performing Organization Address City/[facility] Hospital[facility] Phone Number [address] [address] [phone] [place] Comprehensive metabolic panel (09/13/2018 10:48 AM CDT) Protein, Total 7.6 6.0 - 8.3 gm/dL [facility] Albumin 3.9 3.5 - 5.0 g/dL [facility] Alkaline Phosphatase 78 40 - 150 U/L [facility] Total Bilirubin 0.6 0.2 - 1.2 mg/dL [facility] Sodium 139 136 - 145 meq/L [facility] Potassium 4.4 3.5 - 5.1 meq/L [facility] Chloride 98 98 - 107 meq/L [facility] CO2 34 (H) 22 - 29 meq/L [facility] BUN 17 7 - 21 mg/dL [facility] Creatinine 1.37 (H) 0.57 - 1.25 mg/dL [facility] Glucose 115 (H) 70 - 105 mg/dL [facility] Calcium 10.0 8.4 - 10.2 mg/dL [facility] AST 20 5 - 34 U/L [facility] ALT 16 6 - 55 U/L [facility] EGFR 46Comment: ESTIMATED GFR mL/min/1.73 sq m [facility] IS NOT ACCURATE [facility] CREATININE CLEARANCE IN PREDICTING GLOMERULAR FILTRATION RATE. ESTIMATED GFR IS NOT APPLICABLE FOR DIALYSIS PATIENTS. Specimen Blood Performing Organization Address City/State/Zipcode Phone Number [address] [address] [place] RHYTHM STRIP - SCAN (07/25/2018 9:50 AM CDT)Only the most recent of3 resultswithin the time period is included. Narrative Performed At VASCULAR DIAGRAM -SCAN (07/25/2018 9:50 AM CDT) Narrative Performed At POC-Glucose meter (07/22/2018 12:27 PM CDT)Only the most recent of64 resultswithin the time period is included. POC-Glucose Meter 221 (H)Comment: TESTED AT 70 - 110 mg/dL [address] [address] Specimen Blood Performing Organization Address City/State/Zipcode Phone Number [address] [address] [phone] [place] XR chest 1 view portable / bedside [...] MD Report Verified Date/Time:07/22/2018 08:57:17 Reading Location: [address] Reading Room Procedure Note Interface, External Ris [...] Report Verified Date/Time: 07/22/2018 08:57:17 Reading Location: [address] Neuro Reading Room Performing Organization Address City/[facility]/Zipcode Phone Number [facility] aPTT (07/22/2018 4:58 AM CDT)Only the most recent of22 resultswithin the time period is included. PTT 44.5 (H) 22.5 - 36.0 seconds [facility] Specimen Blood Performing Organization Address City/[facility]/Zipcode Phone Number [address] [address] CENTER CBC (Hemogram only) (07/22/2018 4:58 AM CDT)Only the most recent of20 resultswithin the time period is included. WBC 6.6 3.5 - 10.5 K/L [facility] RBC 2.45 (L) 3.93 - 5.22 M/L [facility] Hemoglobin 7.7 (L) 11.2 - 15.7 GM/DL [facility] Hematocrit 26.1 (L) 34.1 - 44.9 % [facility] MCV 106.5 (H) 79.4 - 94.8 fL [facility] MCH 31.4 25.6 - 32.2 pg [facility] MCHC 29.5 (L) 32.2 - 35.5 GM/DL [facility] RDW 18.0 (H) 11.7 - 14.4 % [facility] Platelets 227 150 - 450 K/CU MM [facility] MPV 10.0 9.4 - 12.3 fL [facility] nRBC 0 0 - 0 /100 WBC [facility] Specimen Blood Performing Organization Address City/State/Zipcode Phone Number [address] [address] [phone] CENTER Phosphorus (07/22/2018 4:58 AM CDT)Only the most recent of20 resultswithin the time period is included. Phosphorus 3.9 2.3 - 4.7 mg/dL [facility] Specimen Blood Performing Organization Address City/[facility]/Zipcode Phone Number [address] [address] CENTER Digoxin level (07/13/2018 8:06 AM CDT) Digoxin Lvl 0.8 0.8 - 2.0 ng/mL [facility] Specimen Blood Narrative Performed At Draw before next dose of Digoxin [facility] Performing Organization Address City/[facility]/Zipcode Phone Number [address] [address] [phone] CENTER TRANSFUSION SERVICE REPORT - SCAN (07/12/2018 5:56 PM CDT)Only the most recent of3 resultswithin the time period is included. Narrative Performed At Prepare Leuko-Red RBC (07/11/2018 11:54 PM CDT) Unit ABO A Pos [place] UNIT NUMBER [id number] [place] Status TX_TIMEINCHART [place] Blood Bank Product RED BLOOD CELLS [place] PRODUCT CODE [id number] [place] CROSSMATCH COMPATIBLE [place] Specimen Other Performing Organization Address City/[facility] Phone Number [place] Transfuse Leuko-Red RBC (07/10/2018 6:35 PM CDT)Only the most recent of2 resultswithin the time period is included.Type and screen, automated (2018 5:25 AM CDT)Only the most recent of2 resultswithin the time period is included. ABO/RH AUTOMATED (BEAKER) A POSITIVE [facility] Ab Scrn NEGATIVE [facility] Specimen Blood Performing Organization Address City/[facility] Hospitalcovt Phone Number [facility] [address] [place] [address] [phone] Blood gas, arterial (07/06/2018 4:26 PM CDT)Only the most recent of6 resultswithin the time period is included. pH, Arterial 7.46 (H) 7.35 - 7.45 [facility] pCO2, Arterial 42 35 - 45 mmHg [facility] pO2, Arterial 63 (L) 80 - 90 mmHg [facility] O2 Sat, Arterial 93.1 (L) 96.0 - 97.0 % [facility] HCO3, Arterial 29 21 - 29 mmol/L [facility] Base Excess, Arterial 4.4 (H) -2.0 - 3.0 mmol/L [facility] Patient Temperature 37.0 C [facility] FIO2 32.0 % [facility] Specimen Blood, Arterial Performing Organization Address City/State/Zipcode Phone Number [address] [address] [place] Hepatic function panel (07/05/2018 5:16 PM CDT)Only the most recent of2 resultswithin the time period is included. Protein, Total 6.2 6.0 - 8.3 gm/dL [facility] Albumin 3.2 (L) 3.5 - 5.0 g/dL [facility] Total Bilirubin 0.7 0.2 - 1.2 mg/dL [facility] Bilirubin, Direct 0.5 0.1 - 0.5 mg/dL [facility] Alkaline Phosphatase 84 40 - 150 U/L [facility] AST 16 5 - 34 U/L [facility] ALT 9 6 - 55 U/L [facility] Specimen Blood Performing Organization Address City/[facility]/Zipcode Phone Number [address] [address] [place] Potassium (07/03/2018 10:03 AM CDT) Potassium 4.3 3.5 - 5.1 meq/L [facility] Specimen Blood Narrative Performed At Check Serum Potassium level 30 minutes after [facility] IV potassium replacement completed. Performing Organization Address City/State/Zipcode Phone Number [address] [address] [place] XR abdomen / KUB 1 view (07/03/2018 6:15 AM CDT) Specimen Narrative Performed At FINAL REPORT [facility] CLINICAL HISTORY: abd pain TECHNIQUE: RAD, ABDOMEN/KUB, [...] MD Report Verified Date/Time:07/03/2018 06:21:16 Reading Location: [facility] C013 Transitional Reading Room Procedure Note [...] Report Verified Date/Time: 07/03/2018 06:21:16 Reading Location: [facility] C013T Transitional Reading Room Performing Organization Address City/State/Zipcode Phone Number [facility] Oxygen saturation, measured (07/02/2018 10:46 AM CDT)Only the most recent of3 resultswithin the time period is included. O2 Saturation (Measured) 50.1 % [facility] Specimen Blood Performing Organization Address City/State/Zipcode Phone Number [place] [phone] [place] [address] CENTER ECHOCARDIOGRAM REPORT - SCAN (06/30/2018 9:22 PM CDT) Narrative Performed At 2D Echo W/Doppler(CW/PW/Color) (06/30/2018 8:36 AM CDT) Ejection Fraction [facility]CHO HEARTDocal[facility] Specimen Narrative Performed At Transthoracic Echocardiography Report (TTE) [facility]CHO HEARTLAB [facility] Demographics Patient Name DANA, Date of Study 06/30/2018 DURGA [id number] GenderFemale Visit Number [id number] Selvin [id number] Room Number 2C52 Number Date of Birth1945Referring Physician Malathi Flanagan Age72 year(s)Mathematics Department Chair Fela Antunez, MATEUS [place] InterpretingJaime Smiley MD [place] Physician Procedure [...] Study 06/30/2018 DURGA Gender Female Visit Number [id number] Race Black Room Number 2C52 Number Date of 1945 Referring Physician Malathi Flanagan Age 72 year(s) Mathematics Department Chair Fela Antunez, CS Rubber Extrusion Machine Operator Khari [place] Interpreting MD Jessika Abel Physician [...] TR Gradient: 54.51 mmHg Performing Organization Address City/[facility] Phone Number [facility] Lactic Acid, Arterial (06/30/2018 4:33 AM CDT)Only the most recent of2 resultswithin the time period is included. Lactate, Art 1.0 0.5 - 2.2 mmol/L [facility] Specimen Blood, Arterial Performing Organization Address City/[facility]/Zipcode Phone Number [facility] [address] [place] [address] CENTER Prepare RBC (06/30/2018 1:27 AM CDT) CROSSMATCH COMPATIBLE [place] Unit ABO A Pos [place] UNIT NUMBER [id number] [place] Status RETURNED FROM ISSUE [place] Blood Bank Product RED BLOOD CELLS [place] PRODUCT CODE [id number] [place] CROSSMATCH COMPATIBLE S[place] Unit ABO A Pos [place] UNIT NUMBER [id number] [place] Status RETURNED FROM ISSUE [place] Blood Bank Product RED BLOOD CELLS [place] PRODUCT CODE [id number] [place] CROSSMATCH COMPATIBLE S[place] Unit ABO A Pos [place] UNIT NUMBER [id number] [place] Status RETURNED FROM ISSUE [place] Blood Bank Product RED BLOOD CELLS [place] PRODUCT CODE [id number] [place] CROSSMATCH COMPATIBLE S[place] Unit ABO A Pos [place] UNIT NUMBER [id number] [place] Status RETURNED FROM ISSUE [place] Blood Bank Product RED BLOOD CELLS [place] PRODUCT CODE [id number] [place] Specimen Performing Organization Address [facility] [place] Phone Number [place] POC ACTIVATED CLOTTING TIME (06/30/2018 12:52 AM CDT)Only the most recent of4 resultswithin the time period is included. Activated Clotting Time 147Comment: TESTED AT sec [address] [address] Specimen Blood Performing Organization Address [facility] [place] Phone Number [address] [address] [phone] CENTER Potassium-Stat Lab (06/29/2018 11:07 PM CDT) Potassium 4.4 3.6 - 5.5 meq/L [facility] Specimen Blood, Arterial Performing Organization Address [facility] [place] Phone Number [address] [address] [phone] CENTER Sodium Na-Stat Lab (06/29/2018 11:07 PM CDT) Sodium 137 135 - 148 meq/L [facility] Specimen Blood, Arterial Performing Organization Address [facility] [place] Phone Number [address] [phone] [place] Glucose-Stat Lab (06/29/2018 11:07 PM CDT) Glucose 97 70 - 110 mg/dL [facility] Specimen Blood, Arterial Performing Organization Address [facility] [place] Phone Number [address] [address] [phone] [place] HGB/HCT (H&H)-Stat Lab (06/29/2018 11:07 PM CDT) Hemoglobin 10.7 (L) 12.0 - 15.0 g/dL [facility] Hematocrit 31.0 (L) 36.0 - 45.0 % [facility] Specimen Blood, Arterial Performing Organization Address [facility] [place] Phone Number [address] [address] [place] Filter Ionized Calcium (06/29/2018 11:07 PM CDT) Filter Ionized Calcium 1.14 mmol/L [facility] Specimen Blood Narrative Performed At Reference Range: No Normals [facility] Performing Organization Address [facility] [place] Phone Number [address] [phone] [place] CONOR (06/29/2018 10:41 PM CDT) Narrative Performed [...] Pre Intervention Summary: Post Intervention Summary: after 12/20/2017 Insurance Payer Benefit Plan / Subscriber ID Type Phone Address Group [employer] - [employer] MEDICARE xxxxxxxx [facility] [phone] [address] MEDICARE MGD HMO POS [id number] [place] [address] Advance Directives For more information, please contact:[address] [phone] Code Status Date Activated Date Inactivated Comments Full Code 06/29/2018 8:48 PM 07/22/2018 8:31 PM This code status was determined by: Patient Full Code 07/18/2017 10:01 AM 08/09/2017 4:37 PM This code status was determined by: Patient Full Code 06/11/2016 8:17 PM 06/15/2016 3:58 PM This code status was determined by: Patient
--- OUTSIDE RECORDS SUMMARY | 2018-12-21 12:06 | XMS REPORT ---
:1945 [facility] Address [address] [place] [address] Care Team Providers Name Role Phone JENNIFER ACEVEDO SAMIAJUDIBRENTON Unavailable Unavailable OANH MERCHANT Unavailable Unavailable JUSTYN LEVY Unavailable Unavailable DELILAH LANDERS Unavailable Unavailable BRITTNEY CLINTON Unavailable Unavailable DEDRA LUKE Unavailable Unavailable OZ WOODARD Unavailable Unavailable Problems This patient has no known problems. Allergies, Adverse Reactions, Alerts This patient has no known allergies or adverse reactions. Medications This patient has no known medications. Results Test Description Test Time Test Comments Text Results Atomic Results Result Comments CT, CTA, CHEST 2018-11-01 18:12:00 [facility]- Dr. Levy/ Addendum BeginsREPORT Marcus Reddy. STATUS:A PATIENT ID: chano is in [id number] Addendum: I agree network. ppo no with the previously referral needed described non vascular 07/2018t 45704 no findings. Signed: olu Rincon MDReport Verified 10/2018 Date/Time: 11/01/2018 18:12:19 Reading Location: [place] [address] Angio Body Reading RoomAddendum EndsFINAL REPORT CT angiography of the thoracoabdominal aorta [...] cm in the infrarenal level. In 2017 SLE examination, the maximum diameter at the diaphragmatic [...] is seen outside the stent, inside the [place] aorta (essentially present Type I endoleak). In [...] An addendum will be dictated by the X Ray Equipment Mechanic Radiologist regarding the nonvascular findings. Signed: Bryan Mahajan MDReport Verified Date/Time: 10/31/2018 16:01:37 Reading Location: [place] [address] Cardiology MRI , CTA ABDOMEN 2018-11-01 18:12:00 [facility]- Dr. Levy/ Addendum BeginsREPORT Marcus Reddy. STATUS:A PATIENT ID: chano is in [id number] Addendum: I agree network. ppo no with the previously referral needed described non vascular 07/2018cpt 75719 no findings. Signed: olu Rincon George MDReport Verified 10/2018 Date/Time: 11/01/2018 18:12:19 Reading Location: [place] [address] Angio Body Reading RoomAddendum EndsFINAL REPORT CT angiography of the thoracoabdominal aorta [...] is seen outside the stent, inside the [place] aorta (essentially present Type I endoleak). In [...] An addendum will be dictated by the X Ray Equipment Mechanic Radiologist regarding the nonvascular findings. Signed: Bryan Mahajan Verified Date/Time: 10/31/2018 16:01:37 Reading Location: [place] [address] Cardiology MRI -CREATININE 2018-10-31 12:24:00 Test Item Value Reference Range Comments POC-CREATININE (BEAKER) (test 1.6 mg/dL 0.6-1.3 TESTED AT [facility] 6720 axln=5311) [facility] [address] POC-EGFR (BEAKER) (test xzve=3194) 38 mL/min/1.73M2 B-TYPE NATRIURETIC FACTOR (BNP)2018-10-17 12:58:00 Test Item Value Reference Range Comments B-TYPE NATRIURETIC PEPTIDE (BEAKER) (test 3381 pg/mL 0-100 ozjs=914) BASIC METABOLIC [id number] 12:52:00 Test Item Value Reference Range Comments SODIUM (BEAKER) (test 138 meq/L 136-145 etuj=361) POTASSIUM (BEAKER) (test 3.6 meq/L 3.5-5.1 remf=482) CHLORIDE (BEAKER) (test 100 meq/L 98-107 bttm=136) CO2 (BEAKER) (test 30 meq/L 22-29 mdgz=216) BLOOD UREA NITROGEN 21 mg/dL 7-21 (BEAKER) (test iqph=880) CREATININE (BEAKER) (test 1.49 mg/dL 0.57-1.25 fyzv=480) GLUCOSE RANDOM (BEAKER) 182 mg/dL 70-105 (test schf=814) CALCIUM (BEAKER) (test 9.7 mg/dL 8.4-10.2 fyrf=444) EGFR (BEAKER) (test 42 mL/min/1.73 sq m ESTIMATED GFR IS NOT dreh=6987) ACCURATE CREATININE CLEARANCE IN PREDICTING GLOMERULAR FILTRATION RATE. ESTIMATED GFR IS NOT APPLICABLE FOR DIALYSIS PATIENTS. CBC W/PLT COUNT & AUTO [id number] 12:31:00 Test Item Value Reference Range Comments WHITE BLOOD CELL COUNT (BEAKER) (test tqvr=945) 5.9 K/ L 3.5-10.5 RED BLOOD CELL COUNT (BEAKER) (test qfhq=131) 2.76 M/ L 3.93-5.22 HEMOGLOBIN (BEAKER) (test awba=600) 8.9 GM/DL 11.2-15.7 HEMATOCRIT (BEAKER) (test iplf=662) 28.3 % 34.1-44.9 MEAN CORPUSCULAR VOLUME (BEAKER) (test vlam=476) 102.5 fL 79.4-94.8 MEAN CORPUSCULAR HEMOGLOBIN (BEAKER) (test 32.2 pg 25.6-32.2 bwqf=040) MEAN CORPUSCULAR HEMOGLOBIN CONC (BEAKER) (test 31.4 GM/DL 32.2-35.5 bbao=196) RED CELL DISTRIBUTION WIDTH (BEAKER) (test 12.8 % 11.7-14.4 wsae=496) PLATELET COUNT (BEAKER) (test txez=052) 226 K/CU MM 150-450 MEAN PLATELET VOLUME (BEAKER) (test xebj=067) 9.9 fL 9.4-12.3 NUCLEATED RED BLOOD CELLS (BEAKER) (test 0 /100 WBC 0-0 ljgg=283) NEUTROPHILS RELATIVE PERCENT (BEAKER) (test 80 % lsmz=040) LYMPHOCYTES RELATIVE PERCENT (BEAKER) (test 12 % olvo=738) MONOCYTES RELATIVE PERCENT (BEAKER) (test 5 % dvhx=131) EOSINOPHILS RELATIVE PERCENT (BEAKER) (test 2 % ynpf=582) BASOPHILS RELATIVE PERCENT (BEAKER) (test 1 % lhbg=345) NEUTROPHILS ABSOLUTE COUNT (BEAKER) (test 4.75 K/ L 1.56-6.13 xxvf=656) LYMPHOCYTES ABSOLUTE COUNT (BEAKER) (test 0.71 K/ L 1.18-3.74 lzcz=653) MONOCYTES ABSOLUTE COUNT (BEAKER) (test 0.31 K/ L 0.24-0.36 mxyk=323) EOSINOPHILS ABSOLUTE COUNT (BEAKER) (test 0.09 K/ L 0.04-0.36 tfwd=777) BASOPHILS ABSOLUTE COUNT (BEAKER) (test 0.05 K/ L 0.01-0.08 khpu=235) IMMATURE GRANULOCYTES-RELATIVE PERCENT (BEAKER) 0 % 0-1 (test kfkg=5386) HEMOGLOBIN [id number] 13:20:00 Test Item Value Reference Range Comments HEMOGLOBIN A1C (BEAKER) (test qqps=611) 5.0 % 4.3-6.1 TSH/FREE T4 IF [id number] 11:57:00 Test Item Value Reference Range Comments THYROID STIMULATING HORMONE (BEAKER) (test 0.46 uIU/mL 0.35-4.94 qvgw=598) B-TYPE NATRIURETIC FACTOR (BNP)2018-09-13 11:43:00 Test Item Value Reference Range Comments B-TYPE NATRIURETIC PEPTIDE (BEAKER) (test 2747 pg/mL 0-100 nlhk=437) URIC [id number] 11:37:00 Test Item Value Reference Range Comments URIC ACID (BEAKER) (test cstg=559) 5.5 mg/dL 2.6-7.2 [id number] 11:37:00 Test Item Value Reference Range Comments MAGNESIUM (BEAKER) (test ndnh=645) 2.0 mg/dL 1.6-2.6 COMPREHENSIVE METABOLIC [id number] 11:37:00 Test Item Value Reference Range Comments TOTAL PROTEIN (BEAKER) 7.6 gm/dL 6.0-8.3 (test odqu=007) ALBUMIN (BEAKER) (test 3.9 g/dL 3.5-5.0 hmed=9085) ALKALINE PHOSPHATASE 78 U/L 40-150 (BEAKER) (test blno=439) BILIRUBIN TOTAL (BEAKER) 0.6 mg/dL 0.2-1.2 (test xump=273) SODIUM (BEAKER) (test 139 meq/L 136-145 cgnd=618) POTASSIUM (BEAKER) (test 4.4 meq/L 3.5-5.1 elzp=467) CHLORIDE (BEAKER) (test 98 meq/L 98-107 ifar=861) CO2 (BEAKER) (test 34 meq/L 22-29 sagb=549) BLOOD UREA NITROGEN 17 mg/dL 7-21 (BEAKER) (test ehsf=286) CREATININE (BEAKER) (test 1.37 mg/dL 0.57-1.25 pvae=382) GLUCOSE RANDOM (BEAKER) 115 mg/dL 70-105 (test crem=505) CALCIUM (BEAKER) (test 10.0 mg/dL 8.4-10.2 fqcv=798) AST (SGOT) (BEAKER) (test 20 U/L 5-34 diop=055) ALT (SGPT) (BEAKER) (test 16 U/L 6-55 afei=307) EGFR (BEAKER) (test 46 mL/min/1.73 sq m ESTIMATED GFR IS NOT neaa=7353) ACCURATE CREATININE CLEARANCE IN PREDICTING GLOMERULAR FILTRATION RATE. ESTIMATED GFR IS NOT APPLICABLE FOR DIALYSIS PATIENTS. LIPID [id number] 11:37:00 Test Item Value Reference Range Comments TRIGLYCERIDES (BEAKER) (test jbed=687) 82 mg/dL CHOLESTEROL (BEAKER) (test bcle=710) 185 mg/dL HDL CHOLESTEROL (BEAKER) (test hspe=970) 111 mg/dL LDL CHOLESTEROL CALCULATED (BEAKER) (test 58 mg/dL kwzu=389) Triglyceride Reference Range: Low Risk <150 Borderline 150- 199 High Risk 200-499 Very High Risk >=500Cholesterol Reference Range: Low Risk <200 Borderline 200-239 High Risk > 240HDL Cholesterol Reference Range: Low Risk >=60 High Risk <40LDL Cholesterol Reference Range: Optimal <100 Near Optimal 100-129 Borderline 130-159 High 160-189 Very High >=[id number] 11:35:00 Test Item Value Reference Range Comments PREALBUMIN (BEAKER) (test ipsj=868) 19 mg/dL 14-45 PROTHROMBIN [id number] 11:24:00 Test Item Value Reference Range Comments PROTIME (BEAKER) (test spqi=509) 13.3 seconds 11.9-14.2 INR (BEAKER) (test hrvd=262) 1.1 <=5.9 Effective 08/30/2018: PT Reference Range ChangeNew: 11.9-14.2 Previous: 11.7- 14.7RECOMMENDED COUMADIN/WARFARIN INR THERAPY RANGESSTANDARD DOSE: 2.0-3.0 Includes: PROPHYLAXIS for venous thrombosis, systemic embolization; TREATMENT for venous thrombosis and/or pulmonary embolus.HIGH RISK: Target INR is2.5-3.5 for patients wiht mechanical heart valves.CBC W/PLT COUNT & AUTO [id number] 11:17:00 Test Item Value Reference Range Comments WHITE BLOOD CELL COUNT (BEAKER) (test wfez=722) 6.5 K/ L 3.5-10.5 RED BLOOD CELL COUNT (BEAKER) (test hkfm=252) 3.02 M/ L 3.93-5.22 HEMOGLOBIN (BEAKER) (test zkni=459) 9.7 GM/DL 11.2-15.7 HEMATOCRIT (BEAKER) (test pxpr=581) 31.1 % 34.1-44.9 MEAN CORPUSCULAR VOLUME (BEAKER) (test wrvz=376) 103.0 fL 79.4-94.8 MEAN CORPUSCULAR HEMOGLOBIN (BEAKER) (test 32.1 pg 25.6-32.2 hbwq=698) MEAN CORPUSCULAR HEMOGLOBIN CONC (BEAKER) (test 31.2 GM/DL 32.2-35.5 ytam=807) RED CELL DISTRIBUTION WIDTH (BEAKER) (test 13.0 % 11.7-14.4 fxxt=416) PLATELET COUNT (BEAKER) (test hrlg=559) 239 K/CU MM 150-450 MEAN PLATELET VOLUME (BEAKER) (test vadc=749) 9.4 fL 9.4-12.3 NUCLEATED RED BLOOD CELLS (BEAKER) (test 0 /100 WBC 0-0 asvo=535) NEUTROPHILS RELATIVE PERCENT (BEAKER) (test 81 % qbef=410) LYMPHOCYTES RELATIVE PERCENT (BEAKER) (test 10 % rqpw=980) MONOCYTES RELATIVE PERCENT (BEAKER) (test 6 % nain=578) EOSINOPHILS RELATIVE PERCENT (BEAKER) (test 2 % gjov=551) BASOPHILS RELATIVE PERCENT (BEAKER) (test 1 % dnwe=796) NEUTROPHILS ABSOLUTE COUNT (BEAKER) (test 5.23 K/ L 1.56-6.13 nakf=399) LYMPHOCYTES ABSOLUTE COUNT (BEAKER) (test 0.65 K/ L 1.18-3.74 lfxk=417) MONOCYTES ABSOLUTE COUNT (BEAKER) (test 0.39 K/ L 0.24-0.36 bpew=079) EOSINOPHILS ABSOLUTE COUNT (BEAKER) (test 0.13 K/ L 0.04-0.36 rdgl=392) BASOPHILS ABSOLUTE COUNT (BEAKER) (test 0.05 K/ L 0.01-0.08 aode=882) IMMATURE GRANULOCYTES-RELATIVE PERCENT (BEAKER) 0 % 0-1 (test gjkr=2642) POCT-GLUCOSE [id number] 12:29:00 Test Item Value Reference Range Comments POC-GLUCOSE METER (BEAKER) 221 mg/dL 70-110 TESTED AT [facility] [address] [facility] (test rzqo=0718) [facility] [address] POCT-GLUCOSE [id number] 09:00:00 Test Item Value Reference Range Comments POC-GLUCOSE METER (BEAKER) 135 mg/dL 70-110 TESTED AT [facility] [address] [facility] (test cjyc=5548) [facility] [address] RAD, CHEST, 1 VIEW, NON [id number] 08:57:00Reason for exam:->post opShould this be performed at the bedside?->YesFINAL REPORT RAD, CHEST, 1 VIEW, NON DEPT INDICATION: post op COMPARISON: Prior day' s exam FINDINGS: Portable frontal view of the chest. IMPRESSION: Support Lines: Stable. Lungs and pleura: Unchanged airspace and pleural opacities. No pneumothorax.Heart and mediastinum: Stable contours. Stable surgical changes.Additional findings: None. Signed: Trey Robleseport Verified Date/Time: 07/22/2018 08:57:17 Reading Location: [facility] C013V Neuro Reading Room Electronicallysigned by: TREY ROBLES MD on 07/22/2018 08:57 [id number] 07:51:00 Test Item Value Reference Range Comments PHOSPHORUS (BEAKER) (test xate=979) 3.9 mg/dL 2.3-4.7 [id number] 07:51:00 Test Item Value Reference Range Comments MAGNESIUM (BEAKER) (test tibs=745) 1.7 mg/dL 1.6-2.6 BASIC METABOLIC [id number] 07:51:00 Test Item Value Reference Range Comments SODIUM (BEAKER) (test 139 meq/L 136-145 tqps=036) POTASSIUM (BEAKER) (test 4.4 meq/L 3.5-5.1 bclq=698) CHLORIDE (BEAKER) (test 102 meq/L 98-107 pyax=690) CO2 (BEAKER) (test 30 meq/L 22-29 rwen=180) BLOOD UREA NITROGEN 23 mg/dL 7-21 (BEAKER) (test qdtn=339) CREATININE (BEAKER) (test 1.40 mg/dL 0.57-1.25 qgjp=687) GLUCOSE RANDOM (BEAKER) 139 mg/dL 70-105 (test dfnl=363) CALCIUM (BEAKER) (test 8.8 mg/dL 8.4-10.2 czuy=670) EGFR (BEAKER) (test 45 mL/min/1.73 sq m ESTIMATED GFR IS NOT pneo=6135) ACCURATE CREATININE CLEARANCE IN PREDICTING GLOMERULAR FILTRATION RATE. ESTIMATED GFR IS NOT APPLICABLE FOR DIALYSIS PATIENTS. [id number] 05:36:00 Test Item Value Reference Range Comments PARTIAL THROMBOPLASTIN TIME (BEAKER) (test 44.5 seconds 22.5-36.0 pxtu=750) CBC (HEMOGRAM ONLY)2018-07-22 05:24:00 Test Item Value Reference Range Comments WHITE BLOOD CELL COUNT (BEAKER) (test rcmz=493) 6.6 K/ L 3.5-10.5 RED BLOOD CELL COUNT (BEAKER) (test rrqk=691) 2.45 M/ L 3.93-5.22 HEMOGLOBIN (BEAKER) (test uxrr=261) 7.7 GM/DL 11.2-15.7 HEMATOCRIT (BEAKER) (test rgof=781) 26.1 % 34.1-44.9 MEAN CORPUSCULAR VOLUME (BEAKER) (test ykgm=965) 106.5 fL 79.4-94.8 MEAN CORPUSCULAR HEMOGLOBIN (BEAKER) (test 31.4 pg 25.6-32.2 qmdx=013) MEAN CORPUSCULAR HEMOGLOBIN CONC (BEAKER) (test 29.5 GM/DL 32.2-35.5 icef=134) RED CELL DISTRIBUTION WIDTH (BEAKER) (test 18.0 % 11.7-14.4 mfot=279) PLATELET COUNT (BEAKER) (test smok=223) 227 K/CU MM 150-450 MEAN PLATELET VOLUME (BEAKER) (test cugr=561) 10.0 fL 9.4-12.3 NUCLEATED RED BLOOD CELLS (BEAKER) (test 0 /100 WBC 0-0 binm=134) POCT-GLUCOSE [id number] 21:36:00 Test Item Value Reference Range Comments POC-GLUCOSE METER (BEAKER) 283 mg/dL 70-110 TESTED AT [address] (test jqsr=2698) [place] [address] POCT-GLUCOSE [id number] 18:26:00 Test Item Value Reference Range Comments POC-GLUCOSE METER (BEAKER) 123 mg/dL 70-110 TESTED AT [address] (test ptzx=7966) [place] [id number] POCT-GLUCOSE [id number] 14:04:00 Test Item Value Reference Range Comments POC-GLUCOSE METER (BEAKER) 152 mg/dL 70-110 TESTED AT [address] (test ifcr=1895) [place] [id number] POCT-GLUCOSE [id number] 12:52:00 Test Item Value Reference Range Comments POC-GLUCOSE METER (BEAKER) 228 mg/dL 70-110 TESTED AT [address] (test tyfh=1998) [place] [address] RAD, CHEST, 1 VIEW, NON [id number] 09:40:00Reason for exam:->post opShould this be performed at the bedside?->YesFINAL REPORT Comparison: 07/20/2018 TECHNIQUE: Single view of the chest FINDINGS: There are nonspecific prominent interstitial markings bilaterally. Trace pleural effusions are seen. No gross new lung parenchymal changes. Cardiac silhouette is enlarged. Thoracic aortic stent grafts noted. Right-sided PICC line is stable. Signed: Olayinka Hampton MDReport Verified Date/Time: 07/21/2018 09: 40:18 Reading Location: [facility] Radiology Reading Room POCT-GLUCOSE [id number] 09:10: 00 Test Item Value Reference Range Comments POC-GLUCOSE METER (BEAKER) 239 mg/dL 70-110 TESTED AT [address] (test wspw=0711) [facility] [address] [id number] 06:51:00 Test Item Value Reference Range Comments PHOSPHORUS (BEAKER) (test fkhv=072) 3.4 mg/dL 2.3-4.7 [id number] 06:51:00 Test Item Value Reference Range Comments MAGNESIUM (BEAKER) (test ntpa=230) 1.8 mg/dL 1.6-2.6 BASIC METABOLIC [id number] 06:51:00 Test Item Value Reference Range Comments SODIUM (BEAKER) (test 137 meq/L 136-145 eors=753) POTASSIUM (BEAKER) (test 4.4 meq/L 3.5-5.1 tyqy=411) CHLORIDE (BEAKER) (test 100 meq/L 98-107 dwyy=524) CO2 (BEAKER) (test 31 meq/L 22-29 eqgk=274) BLOOD UREA NITROGEN 23 mg/dL 7-21 (BEAKER) (test iubk=123) CREATININE (BEAKER) (test 1.40 mg/dL 0.57-1.25 vhpj=530) GLUCOSE RANDOM (BEAKER) 146 mg/dL 70-105 (test iydq=003) CALCIUM (BEAKER) (test 9.2 mg/dL 8.4-10.2 womk=263) EGFR (BEAKER) (test 45 mL/min/1.73 sq m ESTIMATED GFR IS NOT nibr=3158) ACCURATE CREATININE CLEARANCE IN PREDICTING GLOMERULAR FILTRATION RATE. ESTIMATED GFR IS NOT APPLICABLE FOR DIALYSIS PATIENTS. [id number] 06:47:00 Test Item Value Reference Range Comments PARTIAL THROMBOPLASTIN TIME (BEAKER) (test 51.7 seconds 22.5-36.0 ekph=283) CBC (HEMOGRAM ONLY)2018-07-21 06:28:00 Test Item Value Reference Range Comments WHITE BLOOD CELL COUNT (BEAKER) (test ajiq=928) 5.4 K/ L 3.5-10.5 RED BLOOD CELL COUNT (BEAKER) (test mwfl=510) 2.66 M/ L 3.93-5.22 HEMOGLOBIN (BEAKER) (test tmur=079) 8.2 GM/DL 11.2-15.7 HEMATOCRIT (BEAKER) (test hjbf=466) 28.3 % 34.1-44.9 MEAN CORPUSCULAR VOLUME (BEAKER) (test nvfs=180) 106.4 fL 79.4-94.8 MEAN CORPUSCULAR HEMOGLOBIN (BEAKER) (test 30.8 pg 25.6-32.2 tmis=676) MEAN CORPUSCULAR HEMOGLOBIN CONC (BEAKER) (test 29.0 GM/DL 32.2-35.5 tyah=607) RED CELL DISTRIBUTION WIDTH (BEAKER) (test 18.3 % 11.7-14.4 hfkc=008) PLATELET COUNT (BEAKER) (test uurp=390) 211 K/CU MM 150-450 MEAN PLATELET VOLUME (BEAKER) (test pydj=222) 10.3 fL 9.4-12.3 NUCLEATED RED BLOOD CELLS (BEAKER) (test 0 /100 WBC 0-0 hsll=252) POCT-GLUCOSE [id number] 21:18:00 Test Item Value Reference Range Comments POC-GLUCOSE METER (BEAKER) 245 mg/dL 70-110 TESTED AT [address] (test fciy=0745) [facility] [address] POCT-GLUCOSE [id number] 18:12:00 Test Item Value Reference Range Comments POC-GLUCOSE METER (BEAKER) 158 mg/dL 70-110 TESTED AT [address] (test dgss=9752) [facility] [address] POCT-GLUCOSE [id number] 12:46:00 Test Item Value Reference Range Comments POC-GLUCOSE METER (BEAKER) 178 mg/dL 70-110 TESTED AT [address] (test holt=2948) [facility] [address] RAD, CHEST, 1 VIEW, NON [id number] 08:43:00Reason for exam:->post opShould this be performed at the bedside?->YesFINAL REPORT Chest one view. Clinical history: post op Comparison: 2018Discussion: A frontal chest is provided. Cardiomediastinal contours are unchanged. Lines and tubesare in stable position. Stable appearance of vascular congestion and interstitial edema. Small bilateral pleural effusions. No pneumothorax. Signed: Morgan Cheng Verified Date/Time: 07/20/2018 08:43 :10 Reading Location: [facility] Radiology Reading Room POCT-GLUCOSE [id number] 08:05:00 Test Item Value Reference Range Comments POC-GLUCOSE METER (BEAKER) 114 mg/dL 70-110 TESTED AT [address] (test pbcc=8621) [facility] [address] [id number] 06:55:00 Test Item Value Reference Range Comments PHOSPHORUS (BEAKER) (test ajnl=193) 3.4 mg/dL 2.3-4.7 [id number] 06:55:00 Test Item Value Reference Range Comments MAGNESIUM (BEAKER) (test nouf=145) 1.5 mg/dL 1.6-2.6 BASIC METABOLIC [id number] 06:55:00 Test Item Value Reference Range Comments SODIUM (BEAKER) (test 137 meq/L 136-145 issn=619) POTASSIUM (BEAKER) (test 4.4 meq/L 3.5-5.1 xykr=039) CHLORIDE (BEAKER) (test 101 meq/L 98-107 sebl=764) CO2 (BEAKER) (test 27 meq/L 22-29 nbtg=400) BLOOD UREA NITROGEN 23 mg/dL 7-21 (BEAKER) (test udzz=289) CREATININE (BEAKER) (test 1.28 mg/dL 0.57-1.25 uisj=651) GLUCOSE RANDOM (BEAKER) 150 mg/dL 70-105 (test oxya=545) CALCIUM (BEAKER) (test 9.0 mg/dL 8.4-10.2 cdkk=773) EGFR (BEAKER) (test 50 mL/min/1.73 sq m ESTIMATED GFR IS NOT ilnd=1669) ACCURATE CREATININE CLEARANCE IN PREDICTING GLOMERULAR FILTRATION RATE. ESTIMATED GFR IS NOT APPLICABLE FOR DIALYSIS PATIENTS. [id number] 06:28:00 Test Item Value Reference Range Comments PARTIAL THROMBOPLASTIN TIME (BEAKER) (test 44.5 seconds 22.5-36.0 ortk=451) CBC (HEMOGRAM ONLY)2018-07-20 06:19:00 Test Item Value Reference Range Comments WHITE BLOOD CELL COUNT (BEAKER) (test dnsh=588) 5.5 K/ L 3.5-10.5 RED BLOOD CELL COUNT (BEAKER) (test fkit=227) 2.58 M/ L 3.93-5.22 HEMOGLOBIN (BEAKER) (test ouvw=360) 7.9 GM/DL 11.2-15.7 HEMATOCRIT (BEAKER) (test uhcz=906) 27.1 % 34.1-44.9 MEAN CORPUSCULAR VOLUME (BEAKER) (test ivnb=375) 105.0 fL 79.4-94.8 MEAN CORPUSCULAR HEMOGLOBIN (BEAKER) (test 30.6 pg 25.6-32.2 anhi=387) MEAN CORPUSCULAR HEMOGLOBIN CONC (BEAKER) (test 29.2 GM/DL 32.2-35.5 fcvg=106) RED CELL DISTRIBUTION WIDTH (BEAKER) (test 18.5 % 11.7-14.4 rped=173) PLATELET COUNT (BEAKER) (test tdcr=255) 189 K/CU MM 150-450 MEAN PLATELET VOLUME (BEAKER) (test ldel=413) 9.9 fL 9.4-12.3 NUCLEATED RED BLOOD CELLS (BEAKER) (test 0 /100 WBC 0-0 tdog=074) POCT-GLUCOSE [id number] 00:43:00 Test Item Value Reference Range Comments POC-GLUCOSE METER (BEAKER) 135 mg/dL 70-110 TESTED AT [address] (test bdtz=5173) [place] [address] POCT-GLUCOSE [id number] 21:19:00 Test Item Value Reference Range Comments POC-GLUCOSE METER (BEAKER) 284 mg/dL 70-110 TESTED AT [address] (test hwlz=0511) [place] [address] POCT-GLUCOSE [id number] 17:54:00 Test Item Value Reference Range Comments POC-GLUCOSE METER (BEAKER) 146 mg/dL 70-110 TESTED AT [address] (test xzew=0223) [place] [address] POCT-GLUCOSE [id number] 14:15:00 Test Item Value Reference Range Comments POC-GLUCOSE METER (BEAKER) 230 mg/dL 70-110 TESTED AT [address] (test vcwb=2791) [place] [address] RAD, CHEST, 1 VIEW, NON [id number] 08:30:00Reason for exam:->post opShould this be performed [...] MDReport Verified Date/Time: 07/19/2018 08:30:21 Reading Location: [facility] Radiology Reading Room POCT-GLUCOSE [id number] 07:30:00 Test Item Value Reference Range Comments POC-GLUCOSE METER (BEAKER) 177 mg/dL 70-110 TESTED AT [address] (test mbes=8892) [place] [address] [id number] 05:20:00 Test Item Value Reference Range Comments PHOSPHORUS (BEAKER) (test zigr=382) 3.5 mg/dL 2.3-4.7 [id number] 05:20:00 Test Item Value Reference Range Comments MAGNESIUM (BEAKER) (test inzs=887) 1.8 mg/dL 1.6-2.6 BASIC METABOLIC [id number] 05:20:00 Test Item Value Reference Range Comments SODIUM (BEAKER) (test 142 meq/L 136-145 zhqz=277) POTASSIUM (BEAKER) (test 4.5 meq/L 3.5-5.1 krwy=045) CHLORIDE (BEAKER) (test 107 meq/L 98-107 ipsp=626) CO2 (BEAKER) (test 31 meq/L 22-29 gvuw=488) BLOOD UREA NITROGEN 25 mg/dL 7-21 (BEAKER) (test tkvq=393) CREATININE (BEAKER) (test 1.35 mg/dL 0.57-1.25 hzqg=732) GLUCOSE RANDOM (BEAKER) 165 mg/dL 70-105 (test ouun=251) CALCIUM (BEAKER) (test 9.1 mg/dL 8.4-10.2 wpea=142) EGFR (BEAKER) (test 47 mL/min/1.73 sq m ESTIMATED GFR IS NOT vabe=0561) ACCURATE CREATININE CLEARANCE IN PREDICTING GLOMERULAR FILTRATION RATE. ESTIMATED GFR IS NOT APPLICABLE FOR DIALYSIS PATIENTS. [id number] 05:17:00 Test Item Value Reference Range Comments PARTIAL THROMBOPLASTIN TIME (BEAKER) (test 44.9 seconds 22.5-36.0 muzv=500) PROTHROMBIN [id number] 05:16:00 Test Item Value Reference Range Comments PROTIME (BEAKER) (test nsel=356) 13.9 seconds 11.7-14.7 INR (BEAKER) (test nwpu=696) 1.1 <=5.9 RECOMMENDED COUMADIN/WARFARIN INR THERAPY RANGESSTANDARD DOSE: 2.0 - 3.0 Includes: PROPHYLAXIS forvenous thrombosis, systemic embolization; TREATMENT for venous thrombosis and/or pulmonary embolus.HIGH RISK: Target INR is 2.5-3.5 for patients with mechanical heart valves.CBC (HEMOGRAM ONLY)2018-07-19 05:02:00 Test Item Value Reference Range Comments WHITE BLOOD CELL COUNT (BEAKER) (test inmj=137) 6.3 K/ L 3.5-10.5 RED BLOOD CELL COUNT (BEAKER) (test mnyg=584) 2.59 M/ L 3.93-5.22 HEMOGLOBIN (BEAKER) (test bjze=079) 8.1 GM/DL 11.2-15.7 HEMATOCRIT (BEAKER) (test rowv=603) 27.6 % 34.1-44.9 MEAN CORPUSCULAR VOLUME (BEAKER) (test aftt=334) 106.6 fL 79.4-94.8 MEAN CORPUSCULAR HEMOGLOBIN (BEAKER) (test 31.3 pg 25.6-32.2 pubf=106) MEAN CORPUSCULAR HEMOGLOBIN CONC (BEAKER) (test 29.3 GM/DL 32.2-35.5 iuur=145) RED CELL DISTRIBUTION WIDTH (BEAKER) (test 18.6 % 11.7-14.4 nndw=300) PLATELET COUNT (BEAKER) (test hgxs=624) 186 K/CU MM 150-450 MEAN PLATELET VOLUME (BEAKER) (test iuvy=009) 9.7 fL 9.4-12.3 NUCLEATED RED BLOOD CELLS (BEAKER) (test 0 /100 WBC 0-0 grta=411) POCT-GLUCOSE [id number] 23:14:00 Test Item Value Reference Range Comments POC-GLUCOSE METER (BEAKER) 173 mg/dL 70-110 TESTED AT [address] (test xvwq=2276) [place] [id number] POCT-GLUCOSE [id number] 21:47:00 Test Item Value Reference Range Comments POC-GLUCOSE METER (BEAKER) 237 mg/dL 70-110 TESTED AT [address] (test qwhu=3898) [facility] [address] POCT-GLUCOSE [id number] 18:16:00 Test Item Value Reference Range Comments POC-GLUCOSE METER (BEAKER) 234 mg/dL 70-110 TESTED AT [address] (test bkle=6866) [place] [id number] POCT-GLUCOSE [id number] 08:34:00 Test Item Value Reference Range Comments POC-GLUCOSE METER (BEAKER) 127 mg/dL 70-110 TESTED AT [address] (test vnco=3975) [facility] [address] RAD, CHEST, 1 VIEW, NON [id number] 08:16:00Reason for exam:->post opShould this be performed [...] Cheng Verified Date/Time: 07/18/2018 08:16:56 Reading Location: [facility] Radiology Reading Room 08: 16 [facility] (HEMOGRAM ONLY)2018-07-18 04:48:00 Test Item Value Reference Range Comments WHITE BLOOD CELL COUNT (BEAKER) (test jxni=012) 7.8 K/ L 3.5-10.5 RED BLOOD CELL COUNT (BEAKER) (test vzhp=887) 2.64 M/ L 3.93-5.22 HEMOGLOBIN (BEAKER) (test iwhg=492) 8.1 GM/DL 11.2-15.7 HEMATOCRIT (BEAKER) (test tfla=269) 28.1 % 34.1-44.9 MEAN CORPUSCULAR VOLUME (BEAKER) (test hfas=225) 106.4 fL 79.4-94.8 MEAN CORPUSCULAR HEMOGLOBIN (BEAKER) (test 30.7 pg 25.6-32.2 nywx=752) MEAN CORPUSCULAR HEMOGLOBIN CONC (BEAKER) (test 28.8 GM/DL 32.2-35.5 fafs=251) RED CELL DISTRIBUTION WIDTH (BEAKER) (test 18.9 % 11.7-14.4 nfsc=547) PLATELET COUNT (BEAKER) (test jjzk=433) 197 K/CU MM 150-450 MEAN PLATELET VOLUME (BEAKER) (test bcrh=637) 10.2 fL 9.4-12.3 NUCLEATED RED BLOOD CELLS (BEAKER) (test 0 /100 WBC 0-0 gjln=279) [id number] 04:40:00 Test Item Value Reference Range Comments PHOSPHORUS (BEAKER) (test rpcg=048) 3.6 mg/dL 2.3-4.7 [id number] 04:40:00 Test Item Value Reference Range Comments MAGNESIUM (BEAKER) (test ywat=038) 1.8 mg/dL 1.6-2.6 BASIC METABOLIC [id number] 04:40:00 Test Item Value Reference Range Comments SODIUM (BEAKER) (test 140 meq/L 136-145 bmnp=784) POTASSIUM (BEAKER) (test 4.5 meq/L 3.5-5.1 uhdu=092) CHLORIDE (BEAKER) (test 106 meq/L 98-107 mxkc=046) CO2 (BEAKER) (test 26 meq/L 22-29 atsa=120) BLOOD UREA NITROGEN 23 mg/dL 7-21 (BEAKER) (test flul=000) CREATININE (BEAKER) (test 1.34 mg/dL 0.57-1.25 hsoy=865) GLUCOSE RANDOM (BEAKER) 105 mg/dL 70-105 (test fwng=684) CALCIUM (BEAKER) (test 9.1 mg/dL 8.4-10.2 wzer=057) EGFR (BEAKER) (test 47 mL/min/1.73 sq m ESTIMATED GFR IS NOT ipri=7321) ACCURATE CREATININE CLEARANCE IN PREDICTING GLOMERULAR FILTRATION RATE. ESTIMATED GFR IS NOT APPLICABLE FOR DIALYSIS PATIENTS. [id number] 04:22:00 Test Item Value Reference Range Comments PARTIAL THROMBOPLASTIN TIME (BEAKER) (test 56.8 seconds 22.5-36.0 qony=332) PROTHROMBIN [id number] 04:20:00 Test Item Value Reference Range Comments PROTIME (BEAKER) (test uezk=329) 13.9 seconds 11.7-14.7 INR (BEAKER) (test mvwi=398) 1.0 <=5.9 RECOMMENDED COUMADIN/WARFARIN INR THERAPY RANGESSTANDARD DOSE: 2.0 - 3.0 Includes: PROPHYLAXIS forvenous thrombosis, systemic embolization; TREATMENT for venous thrombosis and/or pulmonary embolus.HIGH RISK: Target INR is 2.5-3.5 for patients with mechanical heart valves.POCT-GLUCOSE [id number] 20:54:00 Test Item Value Reference Range Comments POC-GLUCOSE METER (BEAKER) 311 mg/dL 70-110 Patient on insulin Drip/TESTED (test izzs=8946) AT [facility] [address] [facility] [address] POCT-GLUCOSE [id number] 18:21:00 Test Item Value Reference Range Comments POC-GLUCOSE METER (BEAKER) 186 mg/dL 70-110 TESTED AT [facility] [address] [facility] (test cpts=7416) [facility] [address] POCT-GLUCOSE [id number] 13:16:00 Test Item Value Reference Range Comments POC-GLUCOSE METER (BEAKER) 153 mg/dL 70-110 TESTED AT [facility] [address] [facility] (test qwdf=9074) [facility] [address] POCT-GLUCOSE [id number] 09:26:00 Test Item Value Reference Range Comments POC-GLUCOSE METER (BEAKER) 128 mg/dL 70-110 TESTED AT [address] (test mhre=1286) [facility] [address] RAD, CHEST, 1 VIEW, NON [id number] 07:39:00Reason for exam:->post opShould this be performed [...] represent compressive atelectasisor developing pneumonitis. Signed: Azul Samort Verified Date/Time: 2018 07:39:00 Reading Location: [facility] Radiology Reading Room Electronically signed by: AZUL SAM M.D.on 07/17/2018 07:39 [id number] 06:22:00 Test Item Value Reference Range Comments PHOSPHORUS (BEAKER) (test zmps=738) 3.6 mg/dL 2.3-4.7 [id number] 06:22:00 Test Item Value Reference Range Comments MAGNESIUM (BEAKER) (test kdcl=297) 1.9 mg/dL 1.6-2.6 BASIC METABOLIC [id number] 06:22:00 Test Item Value Reference Range Comments SODIUM (BEAKER) (test 142 meq/L 136-145 jvwe=186) POTASSIUM (BEAKER) (test 4.6 meq/L 3.5-5.1 bvau=077) CHLORIDE (BEAKER) (test 106 meq/L 98-107 yata=449) CO2 (BEAKER) (test 30 meq/L 22-29 nind=347) BLOOD UREA NITROGEN 23 mg/dL 7-21 (BEAKER) (test hfcd=225) CREATININE (BEAKER) (test 1.31 mg/dL 0.57-1.25 zpsa=154) GLUCOSE RANDOM (BEAKER) 88 mg/dL 70-105 (test yijr=775) CALCIUM (BEAKER) (test 8.9 mg/dL 8.4-10.2 tveo=097) EGFR (BEAKER) (test 49 mL/min/1.73 sq m ESTIMATED GFR IS NOT tclr=5812) ACCURATE CREATININE CLEARANCE IN PREDICTING GLOMERULAR FILTRATION RATE. ESTIMATED GFR IS NOT APPLICABLE FOR DIALYSIS PATIENTS. [id number] 05:10:00 Test Item Value Reference Range Comments PARTIAL THROMBOPLASTIN TIME (BEAKER) (test 52.0 seconds 22.5-36.0 ocjs=664) PROTHROMBIN [id number] 05:09:00 Test Item Value Reference Range Comments PROTIME (BEAKER) (test hbck=942) 14.3 seconds 11.7-14.7 INR (BEAKER) (test oqoo=481) 1.1 <=5.9 RECOMMENDED COUMADIN/WARFARIN INR THERAPY RANGESSTANDARD DOSE: 2.0 - 3.0 Includes: PROPHYLAXIS forvenous thrombosis, systemic embolization; TREATMENT for venous thrombosis and/or pulmonary embolus.HIGH RISK: Target INR is 2.5-3.5 for patients with mechanical heart valves.CBC (HEMOGRAM ONLY)2018-07-17 04:55:00 Test Item Value Reference Range Comments WHITE BLOOD CELL COUNT (BEAKER) (test attn=830) 7.5 K/ L 3.5-10.5 RED BLOOD CELL COUNT (BEAKER) (test ocnf=216) 2.63 M/ L 3.93-5.22 HEMOGLOBIN (BEAKER) (test dzqi=330) 8.1 GM/DL 11.2-15.7 HEMATOCRIT (BEAKER) (test lpyv=066) 27.7 % 34.1-44.9 MEAN CORPUSCULAR VOLUME (BEAKER) (test ybhs=329) 105.3 fL 79.4-94.8 MEAN CORPUSCULAR HEMOGLOBIN (BEAKER) (test 30.8 pg 25.6-32.2 qrjg=728) MEAN CORPUSCULAR HEMOGLOBIN CONC (BEAKER) (test 29.2 GM/DL 32.2-35.5 hwjx=427) RED CELL DISTRIBUTION WIDTH (BEAKER) (test 18.9 % 11.7-14.4 guab=004) PLATELET COUNT (BEAKER) (test jocy=800) 215 K/CU MM 150-450 MEAN PLATELET VOLUME (BEAKER) (test osia=327) 10.2 fL 9.4-12.3 NUCLEATED RED BLOOD CELLS (BEAKER) (test 0 /100 WBC 0-0 exod=612) POCT-GLUCOSE [id number] 21:30:00 Test Item Value Reference Range Comments POC-GLUCOSE METER (BEAKER) 217 mg/dL 70-110 TESTED AT [address] (test xsti=2527) [place] [id number] POCT-GLUCOSE [id number] 18:00:00 Test Item Value Reference Range Comments POC-GLUCOSE METER (BEAKER) 192 mg/dL 70-110 TESTED AT [address] (test rfnh=5056) [place] [address] POCT-GLUCOSE [id number] 14:32:00 Test Item Value Reference Range Comments POC-GLUCOSE METER (BEAKER) 203 mg/dL 70-110 TESTED AT [address] (test coia=6865) [place] [address] POCT-GLUCOSE [id number] 09:41:00 Test Item Value Reference Range Comments POC-GLUCOSE METER (BEAKER) 113 mg/dL 70-110 TESTED AT [address] (test ohbc=8023) [place] [address] [id number] 08:49:00 Test Item Value Reference Range Comments PHOSPHORUS (BEAKER) (test yptn=079) 3.9 mg/dL 2.3-4.7 [id number] 08:49:00 Test Item Value Reference Range Comments MAGNESIUM (BEAKER) (test dfsj=735) 2.0 mg/dL 1.6-2.6 BASIC METABOLIC [id number] 08:49:00 Test Item Value Reference Range Comments SODIUM (BEAKER) (test 142 meq/L 136-145 fdyi=136) POTASSIUM (BEAKER) (test 4.5 meq/L 3.5-5.1 nzvb=961) CHLORIDE (BEAKER) (test 105 meq/L 98-107 bozo=811) CO2 (BEAKER) (test 30 meq/L 22-29 yzsw=369) BLOOD UREA NITROGEN 24 mg/dL 7-21 (BEAKER) (test vukh=728) CREATININE (BEAKER) (test 1.25 mg/dL 0.57-1.25 nupu=337) GLUCOSE RANDOM (BEAKER) 80 mg/dL 70-105 (test xcdq=558) CALCIUM (BEAKER) (test 8.8 mg/dL 8.4-10.2 elfw=230) EGFR (BEAKER) (test 51 mL/min/1.73 sq m ESTIMATED GFR IS NOT idow=5835) ACCURATE CREATININE CLEARANCE IN PREDICTING GLOMERULAR FILTRATION RATE. ESTIMATED GFR IS NOT APPLICABLE FOR DIALYSIS PATIENTS. RAD, CHEST, 1 VIEW, NON [id number] 08:09:00Reason for exam:->post opShould this be performed at the bedside?->YesFINAL REPORT Chest, one view HISTORY: Postoperative assessment Comparison: 2018 Findings: Lungs: Mild bilateral interstitial opacities, unchanged from prior study. Likely pulmonary venous congestion. Heart: Moderate cardiomegaly, unchanged. Pleura: Small bilateral pleural effusions, unchanged. No pneumothorax. Bones: Unremarkable. Lines/tubes: Unchanged in position. IMPRESSION: No significant interval change. Signed: Luis Lopez MDReport Verified Date/Time: 07/16/2018 08:09:34 Reading Location: [address] Body Reading Room 08: 09 AMPROTHROMBIN TIME/[id number] 05:46:00 Test Item Value Reference Range Comments PROTIME (BEAKER) (test xahk=143) 14.0 seconds 11.7-14.7 INR (BEAKER) (test ifgl=717) 1.1 <=5.9 RECOMMENDED COUMADIN/WARFARIN INR THERAPY RANGESSTANDARD DOSE: 2.0 - 3.0 Includes: PROPHYLAXIS forvenous thrombosis, systemic embolization; TREATMENT for venous thrombosis and/or pulmonary embolus.HIGH RISK: Target INR is 2.5-3.5 for patients with mechanical heart valves.[id number] 05:46:00 Test Item Value Reference Range Comments PARTIAL THROMBOPLASTIN TIME (BEAKER) (test 54.5 seconds 22.5-36.0 cfhx=249) CBC (HEMOGRAM ONLY)2018-07-16 05:33:00 Test Item Value Reference Range Comments WHITE BLOOD CELL COUNT (BEAKER) (test nkom=958) 6.6 K/ L 3.5-10.5 RED BLOOD CELL COUNT (BEAKER) (test vlqr=468) 2.75 M/ L 3.93-5.22 HEMOGLOBIN (BEAKER) (test gxma=002) 8.5 GM/DL 11.2-15.7 HEMATOCRIT (BEAKER) (test kvna=819) 28.5 % 34.1-44.9 MEAN CORPUSCULAR VOLUME (BEAKER) (test vewh=303) 103.6 fL 79.4-94.8 MEAN CORPUSCULAR HEMOGLOBIN (BEAKER) (test 30.9 pg 25.6-32.2 jpyq=923) MEAN CORPUSCULAR HEMOGLOBIN CONC (BEAKER) (test 29.8 GM/DL 32.2-35.5 wucs=206) RED CELL DISTRIBUTION WIDTH (BEAKER) (test 19.1 % 11.7-14.4 lznm=425) PLATELET COUNT (BEAKER) (test oyzr=867) 240 K/CU MM 150-450 MEAN PLATELET VOLUME (BEAKER) (test zlxv=891) 10.1 fL 9.4-12.3 NUCLEATED RED BLOOD CELLS (BEAKER) (test 0 /100 WBC 0-0 kilx=465) POCT-GLUCOSE [id number] 21:14:00 Test Item Value Reference Range Comments POC-GLUCOSE METER (BEAKER) 152 mg/dL 70-110 TESTED AT [facility] [address] [facility] (test xaay=0407) [facility] [address] POCT-GLUCOSE [id number] 19:03:00 Test Item Value Reference Range Comments POC-GLUCOSE METER (BEAKER) 173 mg/dL 70-110 TESTED AT [address] (test qphk=2836) [facility] [address] POCT-GLUCOSE [id number] 13:33:00 Test Item Value Reference Range Comments POC-GLUCOSE METER (BEAKER) 274 mg/dL 70-110 TESTED AT [address] (test ymhj=2154) [facility] [address] POCT-GLUCOSE [id number] 10:28:00 Test Item Value Reference Range Comments POC-GLUCOSE METER (BEAKER) 131 mg/dL 70-110 TESTED AT [address] (test zhsh=2638) [facility] [address] POCT-GLUCOSE [id number] 06:41:00 Test Item Value Reference Range Comments POC-GLUCOSE METER (BEAKER) 152 mg/dL 70-110 TESTED AT [address] (test qkef=8307) [facility] [address] [id number] 04:02:00 Test Item Value Reference Range Comments PHOSPHORUS (BEAKER) (test yuyl=326) 3.6 mg/dL 2.3-4.7 [id number] 04:02:00 Test Item Value Reference Range Comments MAGNESIUM (BEAKER) (test kqfb=519) 2.1 mg/dL 1.6-2.6 BASIC METABOLIC [id number] 04:02:00 Test Item Value Reference Range Comments SODIUM (BEAKER) (test 135 meq/L 136-145 zixs=431) POTASSIUM (BEAKER) (test 4.6 meq/L 3.5-5.1 fsji=241) CHLORIDE (BEAKER) (test 101 meq/L 98-107 apez=606) CO2 (BEAKER) (test 27 meq/L 22-29 xeyr=817) BLOOD UREA NITROGEN 23 mg/dL 7-21 (BEAKER) (test smag=601) CREATININE (BEAKER) (test 1.37 mg/dL 0.57-1.25 vidn=237) GLUCOSE RANDOM (BEAKER) 187 mg/dL 70-105 (test jtdl=135) CALCIUM (BEAKER) (test 8.4 mg/dL 8.4-10.2 sjiu=001) EGFR (BEAKER) (test 46 mL/min/1.73 sq m ESTIMATED GFR IS NOT ekjb=5459) ACCURATE CREATININE CLEARANCE IN PREDICTING GLOMERULAR FILTRATION RATE. ESTIMATED GFR IS NOT APPLICABLE FOR DIALYSIS PATIENTS. [id number] 03:57:00 Test Item Value Reference Range Comments PARTIAL THROMBOPLASTIN TIME (BEAKER) (test 44.5 seconds 22.5-36.0 rraa=093) PROTHROMBIN [id number] 03:56:00 Test Item Value Reference Range Comments PROTIME (BEAKER) (test giig=803) 13.4 seconds 11.7-14.7 INR (BEAKER) (test npzz=370) 1.0 <=5.9 RECOMMENDED COUMADIN/WARFARIN INR THERAPY RANGESSTANDARD DOSE: 2.0 - 3.0 Includes: PROPHYLAXIS forvenous thrombosis, systemic embolization; TREATMENT for venous thrombosis and/or pulmonary embolus.HIGH RISK: Target INR is 2.5-3.5 for patients with mechanical heart valves.RAD, CHEST, 1 VIEW, NON [id number] 03:40:00Reason for exam:->post opShould this be [...] Verified Date/Time: 07/15/2018 03:40:13 Reading Location: [address] Neuro Reading Room 03: 40 AMCBC (HEMOGRAM ONLY)2018-07-15 03:33:00 Test Item Value Reference Range Comments WHITE BLOOD CELL COUNT (BEAKER) (test xgtj=105) 7.2 K/ L 3.5-10.5 RED BLOOD CELL COUNT (BEAKER) (test sxsk=770) 2.91 M/ L 3.93-5.22 HEMOGLOBIN (BEAKER) (test jxub=088) 8.9 GM/DL 11.2-15.7 HEMATOCRIT (BEAKER) (test hqua=281) 30.2 % 34.1-44.9 MEAN CORPUSCULAR VOLUME (BEAKER) (test wifu=948) 103.8 fL 79.4-94.8 MEAN CORPUSCULAR HEMOGLOBIN (BEAKER) (test 30.6 pg 25.6-32.2 nwcc=888) MEAN CORPUSCULAR HEMOGLOBIN CONC (BEAKER) (test 29.5 GM/DL 32.2-35.5 tsfr=095) RED CELL DISTRIBUTION WIDTH (BEAKER) (test 19.2 % 11.7-14.4 bcsn=448) PLATELET COUNT (BEAKER) (test djpg=663) 217 K/CU MM 150-450 MEAN PLATELET VOLUME (BEAKER) (test sxgm=301) 9.8 fL 9.4-12.3 NUCLEATED RED BLOOD CELLS (BEAKER) (test 0 /100 WBC 0-0 osvt=854) POCT-GLUCOSE [id number] 21:46:00 Test Item Value Reference Range Comments POC-GLUCOSE METER (BEAKER) 263 mg/dL 70-110 TESTED AT [address] (test shzo=8261) [place] [address] POCT-GLUCOSE [id number] 19:03:00 Test Item Value Reference Range Comments POC-GLUCOSE METER (BEAKER) 178 mg/dL 70-110 TESTED AT [address] (test masy=6211) [place] [address] POCT-GLUCOSE [id number] 17:02:00 Test Item Value Reference Range Comments POC-GLUCOSE METER (BEAKER) 126 mg/dL 70-110 TESTED AT [address] (test genq=7806) [place] [address] POCT-GLUCOSE [id number] 11:34:00 Test Item Value Reference Range Comments POC-GLUCOSE METER (BEAKER) 202 mg/dL 70-110 TESTED AT [address] (test otyw=2436) [facility] [address] RAD, CHEST, 1 VIEW, NON [id number] 05:46:00Reason for exam:->post opShould this be performed [...] [place] Verified Date/Time: 07/14/2018 05:46:57 Reading Location: [facility] C013V Neuro Reading Room [id number] 04:03:00 Test Item Value Reference Range Comments MAGNESIUM (BEAKER) (test 2.2 mg/dL 1.6-2.6 Specimen slightly hemolyzed plfd=769) [id number] 04:03:00 Test Item Value Reference Range Comments PHOSPHORUS (BEAKER) (test 2.9 mg/dL 2.3-4.7 Specimen slightly hemolyzed oapp=275) BASIC METABOLIC [id number] 04:03:00 Test Item Value Reference Range Comments SODIUM (BEAKER) (test 138 meq/L 136-145 jcfu=223) POTASSIUM (BEAKER) (test 5.0 meq/L 3.5-5.1 Specimen slightly qalz=979) hemolyzed CHLORIDE (BEAKER) (test 103 meq/L 98-107 ddjb=319) CO2 (BEAKER) (test 29 meq/L 22-29 pwfr=043) BLOOD UREA NITROGEN 23 mg/dL 7-21 (BEAKER) (test mtel=054) CREATININE (BEAKER) (test 1.41 mg/dL 0.57-1.25 Specimen slightly ewqj=971) hemolyzed GLUCOSE RANDOM (BEAKER) 144 mg/dL 70-105 (test auch=509) CALCIUM (BEAKER) (test 9.1 mg/dL 8.4-10.2 awze=710) EGFR (BEAKER) (test 45 mL/min/1.73 sq m ESTIMATED GFR IS NOT gpij=4386) ACCURATE CREATININE CLEARANCE IN PREDICTING GLOMERULAR FILTRATION RATE. ESTIMATED GFR IS NOT APPLICABLE FOR DIALYSIS PATIENTS. [id number] 03:49:00 Test Item Value Reference Range Comments PARTIAL THROMBOPLASTIN TIME (BEAKER) (test 42.0 seconds 22.5-36.0 ykfr=123) PROTHROMBIN [id number] 03:48:00 Test Item Value Reference Range Comments PROTIME (BEAKER) (test oitl=750) 14.1 seconds 11.7-14.7 INR (BEAKER) (test fgrf=189) 1.1 <=5.9 RECOMMENDED COUMADIN/WARFARIN INR THERAPY RANGESSTANDARD DOSE: 2.0 - 3.0 Includes: PROPHYLAXIS forvenous thrombosis, systemic embolization; TREATMENT for venous thrombosis and/or pulmonary embolus.HIGH RISK: Target INR is 2.5-3.5 for patients with mechanical heart valves.CBC (HEMOGRAM ONLY)2018-07-14 03:38:00 Test Item Value Reference Range Comments WHITE BLOOD CELL COUNT (BEAKER) (test tcxd=562) 8.1 K/ L 3.5-10.5 RED BLOOD CELL COUNT (BEAKER) (test mnue=956) 2.93 M/ L 3.93-5.22 HEMOGLOBIN (BEAKER) (test ugzu=497) 9.0 GM/DL 11.2-15.7 HEMATOCRIT (BEAKER) (test mbod=199) 30.6 % 34.1-44.9 MEAN CORPUSCULAR VOLUME (BEAKER) (test itdu=433) 104.4 fL 79.4-94.8 MEAN CORPUSCULAR HEMOGLOBIN (BEAKER) (test 30.7 pg 25.6-32.2 ldxt=468) MEAN CORPUSCULAR HEMOGLOBIN CONC (BEAKER) (test 29.4 GM/DL 32.2-35.5 xvke=103) RED CELL DISTRIBUTION WIDTH (BEAKER) (test 19.6 % 11.7-14.4 orqk=098) PLATELET COUNT (BEAKER) (test crit=230) 252 K/CU MM 150-450 MEAN PLATELET VOLUME (BEAKER) (test vkxq=304) 9.7 fL 9.4-12.3 NUCLEATED RED BLOOD CELLS (BEAKER) (test 0 /100 WBC 0-0 ojdr=992) POCT-GLUCOSE [id number] 21:17:00 Test Item Value Reference Range Comments POC-GLUCOSE METER (BEAKER) 168 mg/dL 70-110 TESTED AT [facility] [address] [facility] (test tyix=4540) [facility] [address] POCT-GLUCOSE [id number] 16:32:00 Test Item Value Reference Range Comments POC-GLUCOSE METER (BEAKER) 267 mg/dL 70-110 TESTED AT [address] (test nkwe=5098) [place] [address] POCT-GLUCOSE [id number] 12:30:00 Test Item Value Reference Range Comments POC-GLUCOSE METER (BEAKER) 213 mg/dL 70-110 TESTED AT [address] (test paov=6808) [place] [address] RAD, CHEST, 1 VIEW, NON [id number] 09:17:00Reason for exam:->post opShould this be performed [...] pulmonary opacities have improved. Signed: Willian Mckeon MDReport Verified Date/Time: 07/13/2018 09:17:51 Reading Location: [facility] Radiology ReadingRoom 09 :17 AMDIGOXIN [id number] 09:01:00 Test Item Value Reference Range Comments DIGOXIN LEVEL (BEAKER) (test yfsv=183) 0.8 ng/mL 0.8-2.0 Draw before next dose of DigoxinPOCT-GLUCOSE [id number] 08:47:00 Test Item Value Reference Range Comments POC-GLUCOSE METER (BEAKER) 240 mg/dL 70-110 TESTED AT [address] (test lgys=4724) [place] [address] [id number] 04:08:00 Test Item Value Reference Range Comments PHOSPHORUS (BEAKER) (test snru=918) 3.5 mg/dL 2.3-4.7 [id number] 04:08:00 Test Item Value Reference Range Comments MAGNESIUM (BEAKER) (test ycve=467) 2.1 mg/dL 1.6-2.6 BASIC METABOLIC [id number] 04:08:00 Test Item Value Reference Range Comments SODIUM (BEAKER) (test 140 meq/L 136-145 utfc=427) POTASSIUM (BEAKER) (test 4.8 meq/L 3.5-5.1 vjhp=605) CHLORIDE (BEAKER) (test 105 meq/L 98-107 afyt=247) CO2 (BEAKER) (test 28 meq/L 22-29 owdb=795) BLOOD UREA NITROGEN 21 mg/dL 7-21 (BEAKER) (test unfa=159) CREATININE (BEAKER) (test 1.33 mg/dL 0.57-1.25 fjva=662) GLUCOSE RANDOM (BEAKER) 123 mg/dL 70-105 (test hpyj=296) CALCIUM (BEAKER) (test 8.8 mg/dL 8.4-10.2 nlkc=916) EGFR (BEAKER) (test 48 mL/min/1.73 sq m ESTIMATED GFR IS NOT wmha=6714) ACCURATE CREATININE CLEARANCE IN PREDICTING GLOMERULAR FILTRATION RATE. ESTIMATED GFR IS NOT APPLICABLE FOR DIALYSIS PATIENTS. [id number] 03:51:00 Test Item Value Reference Range Comments PARTIAL THROMBOPLASTIN TIME (BEAKER) (test 43.3 seconds 22.5-36.0 qwep=667) PROTHROMBIN TIME/[id number] 03:50:00 Test Item Value Reference Range Comments PROTIME (BEAKER) (test mftt=739) 13.7 seconds 11.7-14.7 INR (BEAKER) (test xzvs=877) 1.0 <=5.9 RECOMMENDED COUMADIN/WARFARIN INR THERAPY RANGESSTANDARD DOSE: 2.0 - 3.0 Includes: PROPHYLAXIS forvenous thrombosis, systemic embolization; TREATMENT for venous thrombosis and/or pulmonary embolus.HIGH RISK: Target INR is 2.5-3.5 for patients with mechanical heart valves.CBC (HEMOGRAM ONLY)2018-07-13 03:24:00 Test Item Value Reference Range Comments WHITE BLOOD CELL COUNT (BEAKER) (test cyuj=447) 7.5 K/ L 3.5-10.5 RED BLOOD CELL COUNT (BEAKER) (test rzym=673) 2.94 M/ L 3.93-5.22 HEMOGLOBIN (BEAKER) (test eifh=234) 9.1 GM/DL 11.2-15.7 HEMATOCRIT (BEAKER) (test tuxc=286) 30.9 % 34.1-44.9 MEAN CORPUSCULAR VOLUME (BEAKER) (test dflj=081) 105.1 fL 79.4-94.8 MEAN CORPUSCULAR HEMOGLOBIN (BEAKER) (test 31.0 pg 25.6-32.2 yigk=336) MEAN CORPUSCULAR HEMOGLOBIN CONC (BEAKER) (test 29.4 GM/DL 32.2-35.5 uosb=363) RED CELL DISTRIBUTION WIDTH (BEAKER) (test 19.8 % 11.7-14.4 vdee=814) PLATELET COUNT (BEAKER) (test imxa=403) 259 K/CU MM 150-450 MEAN PLATELET VOLUME (BEAKER) (test dpng=848) 9.7 fL 9.4-12.3 NUCLEATED RED BLOOD CELLS (BEAKER) (test 0 /100 WBC 0-0 saga=240) POCT-GLUCOSE [id number] 22:41:00 Test Item Value Reference Range Comments POC-GLUCOSE METER (BEAKER) 230 mg/dL 70-110 TESTED AT [address] (test cpjm=5994) [place] [id number] POCT-GLUCOSE [id number] 18:56:00 Test Item Value Reference Range Comments POC-GLUCOSE METER (BEAKER) 98 mg/dL 70-110 TESTED AT [address] (test lnet=5364) [place] [id number] POCT-GLUCOSE [id number] 12:04:00 Test Item Value Reference Range Comments POC-GLUCOSE METER (BEAKER) 169 mg/dL 70-110 TESTED AT [address] (test gsfg=5271) [facility] [address] POCT-GLUCOSE [id number] 09:50:00 Test Item Value Reference Range Comments POC-GLUCOSE METER (BEAKER) 260 mg/dL 70-110 TESTED AT [address] (test kvze=5350) [facility] [address] RAD, CHEST, 1 VIEW, NON [id number] 07:18:00Reason for exam:->post opShould this be performed at the bedside?->YesFINAL REPORT AP chest HISTORY: Postoperative. COMPARISON: 07/11/2018. IMPRESSION: Central line unchanged. Cardiomegaly. Thoracic aortic stent graft. Coarse interstitial markings similar to previous. Question developing right basilar atelectasis. No pneumothorax. Signed: Mitchel Jarquin MDReport Verified Date/ Time: 07/12/2018 07:18:25 Reading Location: [facility] Radiology Reading Room 07: 18 AMPOCT-GLUCOSE [id number] 06:54:00 Test Item Value Reference Range Comments POC-GLUCOSE METER (BEAKER) 193 mg/dL 70-110 TESTED AT [facility] [address] [facility] (test miyh=8970) [facility] [address] [id number] 04:51:00 Test Item Value Reference Range Comments PARTIAL THROMBOPLASTIN TIME (BEAKER) (test 42.6 seconds 22.5-36.0 hhir=092) PROTHROMBIN TIME/[id number] 04:42:00 Test Item Value Reference Range Comments PROTIME (BEAKER) (test edmv=142) 13.7 seconds 11.7-14.7 INR (BEAKER) (test vnnf=347) 1.0 <=5.9 RECOMMENDED COUMADIN/WARFARIN INR THERAPY RANGESSTANDARD DOSE: 2.0 - 3.0 Includes: PROPHYLAXIS forvenous thrombosis, systemic embolization; TREATMENT for venous thrombosis and/or pulmonary embolus.HIGH RISK: Target INR is 2.5-3.5 for patients with mechanical heart valves.[id number] 04:31:00 Test Item Value Reference Range Comments PHOSPHORUS (BEAKER) (test vvap=299) 2.4 mg/dL 2.3-4.7 [id number] 04:31:00 Test Item Value Reference Range Comments MAGNESIUM (BEAKER) (test befd=948) 2.3 mg/dL 1.6-2.6 BASIC METABOLIC [id number] 04:31:00 Test Item Value Reference Range Comments SODIUM (BEAKER) (test 141 meq/L 136-145 umcr=659) POTASSIUM (BEAKER) (test 4.5 meq/L 3.5-5.1 hufp=443) CHLORIDE (BEAKER) (test 106 meq/L 98-107 jtut=714) CO2 (BEAKER) (test 31 meq/L 22-29 njtx=018) BLOOD UREA NITROGEN 26 mg/dL 7-21 (BEAKER) (test teqc=350) CREATININE (BEAKER) (test 1.41 mg/dL 0.57-1.25 yqoo=067) GLUCOSE RANDOM (BEAKER) 63 mg/dL 70-105 (test boto=685) CALCIUM (BEAKER) (test 8.7 mg/dL 8.4-10.2 swam=802) EGFR (BEAKER) (test 45 mL/min/1.73 sq m ESTIMATED GFR IS NOT nfba=8596) ACCURATE CREATININE CLEARANCE IN PREDICTING GLOMERULAR FILTRATION RATE. ESTIMATED GFR IS NOT APPLICABLE FOR DIALYSIS PATIENTS. CBC (HEMOGRAM ONLY)2018-07-12 04:23:00 Test Item Value Reference Range Comments WHITE BLOOD CELL COUNT (BEAKER) (test hirr=898) 7.0 K/ L 3.5-10.5 RED BLOOD CELL COUNT (BEAKER) (test mpch=160) 2.79 M/ L 3.93-5.22 HEMOGLOBIN (BEAKER) (test vlbr=906) 8.6 GM/DL 11.2-15.7 HEMATOCRIT (BEAKER) (test jcee=987) 28.3 % 34.1-44.9 MEAN CORPUSCULAR VOLUME (BEAKER) (test ersz=669) 101.4 fL 79.4-94.8 MEAN CORPUSCULAR HEMOGLOBIN (BEAKER) (test 30.8 pg 25.6-32.2 mufi=819) MEAN CORPUSCULAR HEMOGLOBIN CONC (BEAKER) (test 30.4 GM/DL 32.2-35.5 xnzq=738) RED CELL DISTRIBUTION WIDTH (BEAKER) (test 20.2 % 11.7-14.4 mjvj=233) PLATELET COUNT (BEAKER) (test otdd=852) 276 K/CU MM 150-450 MEAN PLATELET VOLUME (BEAKER) (test cofz=934) 10.3 fL 9.4-12.3 NUCLEATED RED BLOOD CELLS (BEAKER) (test 0 /100 WBC 0-0 pxgp=034) POCT-GLUCOSE [id number] 00:19:00 Test Item Value Reference Range Comments POC-GLUCOSE METER (BEAKER) 404 mg/dL 70-110 TESTED AT [address] (test guoi=4752) [facility] [address] POCT-GLUCOSE [id number] 18:10:00 Test Item Value Reference Range Comments POC-GLUCOSE METER (BEAKER) 268 mg/dL 70-110 TESTED AT [address] (test hgxy=0036) [facility] [address] POCT-GLUCOSE [id number] 12:22:00 Test Item Value Reference Range Comments POC-GLUCOSE METER (BEAKER) 221 mg/dL 70-110 TESTED AT [address] (test ckwy=6658) [place] [id number] RAD, CHEST, 1 VIEW, NON [id number] 07:27:00Reason for exam:->post opShould this be performed [...] significant change. Signed: Willian Mckeon Verified Date/Time: 2018 07:27:41 Reading Location: [facility] Radiology Reading Room POCT- GLUCOSE [id number] 05:28:00 Test Item Value Reference Range Comments POC-GLUCOSE METER (BEAKER) 166 mg/dL 70-110 TESTED AT [address] (test jxmt=4892) [facility] [address] [id number] 04:08:00 Test Item Value Reference Range Comments PHOSPHORUS (BEAKER) (test nwwj=031) 3.0 mg/dL 2.3-4.7 [id number] 04:08:00 Test Item Value Reference Range Comments MAGNESIUM (BEAKER) (test mhmq=015) 1.8 mg/dL 1.6-2.6 BASIC METABOLIC [id number] 04:08:00 Test Item Value Reference Range Comments SODIUM (BEAKER) (test 138 meq/L 136-145 lqwb=106) POTASSIUM (BEAKER) (test 4.6 meq/L 3.5-5.1 bdsp=296) CHLORIDE (BEAKER) (test 102 meq/L 98-107 smwh=457) CO2 (BEAKER) (test 29 meq/L 22-29 jerh=634) BLOOD UREA NITROGEN 28 mg/dL 7-21 (BEAKER) (test blup=928) CREATININE (BEAKER) (test 1.64 mg/dL 0.57-1.25 rqlt=060) GLUCOSE RANDOM (BEAKER) 196 mg/dL 70-105 (test uyal=587) CALCIUM (BEAKER) (test 8.8 mg/dL 8.4-10.2 sshd=935) EGFR (BEAKER) (test 37 mL/min/1.73 sq m ESTIMATED GFR IS NOT zywi=6119) ACCURATE CREATININE CLEARANCE IN PREDICTING GLOMERULAR FILTRATION RATE. ESTIMATED GFR IS NOT APPLICABLE FOR DIALYSIS PATIENTS. [id number] 04:06:00 Test Item Value Reference Range Comments PARTIAL THROMBOPLASTIN TIME (BEAKER) (test 51.7 seconds 22.5-36.0 wthk=228) PROTHROMBIN TIME/[id number] 04:05:00 Test Item Value Reference Range Comments PROTIME (BEAKER) (test rexo=572) 14.1 seconds 11.7-14.7 INR (BEAKER) (test robs=966) 1.1 <=5.9 RECOMMENDED COUMADIN/WARFARIN INR THERAPY RANGESSTANDARD DOSE: 2.0 - 3.0 Includes: PROPHYLAXIS forvenous thrombosis, systemic embolization; TREATMENT for venous thrombosis and/or pulmonary embolus.HIGH RISK: Target INR is 2.5-3.5 for patients with mechanical heart valves.CBC (HEMOGRAM ONLY)2018-07-11 03:53:00 Test Item Value Reference Range Comments WHITE BLOOD CELL COUNT (BEAKER) (test hsbp=939) 6.3 K/ L 3.5-10.5 RED BLOOD CELL COUNT (BEAKER) (test xgvv=649) 2.90 M/ L 3.93-5.22 HEMOGLOBIN (BEAKER) (test lgem=847) 8.8 GM/DL 11.2-15.7 HEMATOCRIT (BEAKER) (test wxuh=169) 29.7 % 34.1-44.9 MEAN CORPUSCULAR VOLUME (BEAKER) (test exvr=162) 102.4 fL 79.4-94.8 MEAN CORPUSCULAR HEMOGLOBIN (BEAKER) (test 30.3 pg 25.6-32.2 jzdr=681) MEAN CORPUSCULAR HEMOGLOBIN CONC (BEAKER) (test 29.6 GM/DL 32.2-35.5 dkhv=485) RED CELL DISTRIBUTION WIDTH (BEAKER) (test 21.0 % 11.7-14.4 rayg=634) PLATELET COUNT (BEAKER) (test eyji=432) 270 K/CU MM 150-450 MEAN PLATELET VOLUME (BEAKER) (test pjzk=154) 10.1 fL 9.4-12.3 NUCLEATED RED BLOOD CELLS (BEAKER) (test 0 /100 WBC 0-0 rzhw=835) POCT-GLUCOSE [id number] 00:38:00 Test Item Value Reference Range Comments POC-GLUCOSE METER (BEAKER) 198 mg/dL 70-110 TESTED AT [address] (test usfd=2373) [place] [id number] POCT-GLUCOSE [id number] 18:42:00 Test Item Value Reference Range Comments POC-GLUCOSE METER (BEAKER) 240 mg/dL 70-110 TESTED AT [address] (test rdtd=2305) [place] [id number] POCT-GLUCOSE [id number] 12:48:00 Test Item Value Reference Range Comments POC-GLUCOSE METER (BEAKER) 248 mg/dL 70-110 TESTED AT [address] (test uivi=7505) [place] [id number] RAD, CHEST, 1 VIEW, NON [id number] 08:53:00Reason for exam:->post opShould this be performed [...] technique, no significant change. Signed: Willian Mckeon MDReport Verified Date/Time: 07/10/2018 08:53:53 Reading Location: [address] Reading Room POCT-GLUCOSE [id number] 06:33:00 Test Item Value Reference Range Comments POC-GLUCOSE METER (BEAKER) 129 mg/dL 70-110 TESTED AT [address] (test jqcg=9235) [facility] [address] POCT-GLUCOSE [id number] 05:36:00 Test Item Value Reference Range Comments POC-GLUCOSE METER (BEAKER) 55 mg/dL 70-110 TESTED AT [address] (test cuav=1007) [facility] [address] [id number] 04:15:00 Test Item Value Reference Range Comments PHOSPHORUS (BEAKER) (test vbzi=855) 3.0 mg/dL 2.3-4.7 [id number] 04:15:00 Test Item Value Reference Range Comments MAGNESIUM (BEAKER) (test xfqv=218) 2.0 mg/dL 1.6-2.6 BASIC METABOLIC [id number] 04:15:00 Test Item Value Reference Range Comments SODIUM (BEAKER) (test 138 meq/L 136-145 imsq=020) POTASSIUM (BEAKER) (test 4.5 meq/L 3.5-5.1 gvjp=053) CHLORIDE (BEAKER) (test 103 meq/L 98-107 wbsz=527) CO2 (BEAKER) (test 27 meq/L 22-29 woww=970) BLOOD UREA NITROGEN 32 mg/dL 7-21 (BEAKER) (test zqmy=719) CREATININE (BEAKER) (test 1.55 mg/dL 0.57-1.25 ljjq=732) GLUCOSE RANDOM (BEAKER) 121 mg/dL 70-105 (test andi=683) CALCIUM (BEAKER) (test 8.8 mg/dL 8.4-10.2 girx=513) EGFR (BEAKER) (test 40 mL/min/1.73 sq m ESTIMATED GFR IS NOT uxba=6493) ACCURATE CREATININE CLEARANCE IN PREDICTING GLOMERULAR FILTRATION RATE. ESTIMATED GFR IS NOT APPLICABLE FOR DIALYSIS PATIENTS. [id number] 03:41:00 Test Item Value Reference Range Comments PARTIAL THROMBOPLASTIN TIME (BEAKER) (test 50.1 seconds 22.5-36.0 kpvp=591) PROTHROMBIN TIME/[id number] 03:40:00 Test Item Value Reference Range Comments PROTIME (BEAKER) (test hzls=896) 14.6 seconds 11.7-14.7 INR (BEAKER) (test bapl=807) 1.1 <=5.9 RECOMMENDED COUMADIN/WARFARIN INR THERAPY RANGESSTANDARD DOSE: 2.0 - 3.0 Includes: PROPHYLAXIS forvenous thrombosis, systemic embolization; TREATMENT for venous thrombosis and/or pulmonary embolus.HIGH RISK: Target INR is 2.5-3.5 for patients with mechanical heart valves.CBC (HEMOGRAM ONLY)2018-07-10 03:38:00 Test Item Value Reference Range Comments WHITE BLOOD CELL COUNT (BEAKER) (test vrdd=988) 6.3 K/ L 3.5-10.5 RED BLOOD CELL COUNT (BEAKER) (test jlmj=848) 2.47 M/ L 3.93-5.22 HEMOGLOBIN (BEAKER) (test zpko=615) 7.6 GM/DL 11.2-15.7 HEMATOCRIT (BEAKER) (test trsm=298) 26.0 % 34.1-44.9 MEAN CORPUSCULAR VOLUME (BEAKER) (test barn=675) 105.3 fL 79.4-94.8 MEAN CORPUSCULAR HEMOGLOBIN (BEAKER) (test 30.8 pg 25.6-32.2 rvwx=284) MEAN CORPUSCULAR HEMOGLOBIN CONC (BEAKER) (test 29.2 GM/DL 32.2-35.5 bnjw=701) RED CELL DISTRIBUTION WIDTH (BEAKER) (test 17.1 % 11.7-14.4 cggk=674) PLATELET COUNT (BEAKER) (test tuqu=268) 301 K/CU MM 150-450 MEAN PLATELET VOLUME (BEAKER) (test gkum=703) 10.0 fL 9.4-12.3 NUCLEATED RED BLOOD CELLS (BEAKER) (test 0 /100 WBC 0-0 vmlx=183) POCT-GLUCOSE [id number] 00:03:00 Test Item Value Reference Range Comments POC-GLUCOSE METER (BEAKER) 317 mg/dL 70-110 Notified PAULA BERGER/TESTED AT [facility] (test mqyn=4569) [address] [place], [place] [id number] POCT-GLUCOSE [id number] 17:44:00 Test Item Value Reference Range Comments POC-GLUCOSE METER (BEAKER) 129 mg/dL 70-110 TESTED AT [address] (test jbbt=9167) [place] [id number] POCT-GLUCOSE [id number] 12:13:00 Test Item Value Reference Range Comments POC-GLUCOSE METER (BEAKER) 283 mg/dL 70-110 TESTED AT [address] (test ymla=6619) [place] [address] RAD, CHEST, 1 VIEW, NON [id number] 07:35:00Reason for exam:->post opShould this be performed [...] unchanged. No acute bony abnormality. Signed: Mono Branh[place]port Verified Date/Time: 07/09/2018 07:35:48 Reading Location: [facility] C013Y CT Body Reading Room POCT-GLUCOSE [id number] 05:13:00 Test Item Value Reference Range Comments POC-GLUCOSE METER (BEAKER) 186 mg/dL 70-110 TESTED AT [address] (test qfpp=0276) [place] [address] [id number] 04:51:00 Test Item Value Reference Range Comments PHOSPHORUS (BEAKER) (test sugx=818) 3.8 mg/dL 2.3-4.7 [id number] 04:51:00 Test Item Value Reference Range Comments MAGNESIUM (BEAKER) (test pnxg=657) 2.1 mg/dL 1.6-2.6 BASIC METABOLIC [id number] 04:51:00 Test Item Value Reference Range Comments SODIUM (BEAKER) (test 138 meq/L 136-145 hqza=178) POTASSIUM (BEAKER) (test 4.9 meq/L 3.5-5.1 opce=067) CHLORIDE (BEAKER) (test 103 meq/L 98-107 olbp=962) CO2 (BEAKER) (test 29 meq/L 22-29 zedu=996) BLOOD UREA NITROGEN 33 mg/dL 7-21 (BEAKER) (test mslw=132) CREATININE (BEAKER) (test 1.78 mg/dL 0.57-1.25 vbrd=575) GLUCOSE RANDOM (BEAKER) 155 mg/dL 70-105 (test hmor=009) CALCIUM (BEAKER) (test 9.0 mg/dL 8.4-10.2 juqx=852) EGFR (BEAKER) (test 34 mL/min/1.73 sq m ESTIMATED GFR IS NOT spoo=6901) ACCURATE CREATININE CLEARANCE IN PREDICTING GLOMERULAR FILTRATION RATE. ESTIMATED GFR IS NOT APPLICABLE FOR DIALYSIS PATIENTS. [id number] 04:30:00 Test Item Value Reference Range Comments PARTIAL THROMBOPLASTIN TIME (BEAKER) (test 63.2 seconds 22.5-36.0 nebk=688) PROTHROMBIN TIME/[id number] 04:29:00 Test Item Value Reference Range Comments PROTIME (BEAKER) (test chgl=704) 14.6 seconds 11.7-14.7 INR (BEAKER) (test obzu=207) 1.1 <=5.9 RECOMMENDED COUMADIN/WARFARIN INR THERAPY RANGESSTANDARD DOSE: 2.0 - 3.0 Includes: PROPHYLAXIS forvenous thrombosis, systemic embolization; TREATMENT for venous thrombosis and/or pulmonary embolus.HIGH RISK: Target INR is 2.5-3.5 for patients with mechanical heart valves.CBC (HEMOGRAM ONLY)2018-07-09 04:18:00 Test Item Value Reference Range Comments WHITE BLOOD CELL COUNT (BEAKER) (test hetq=883) 6.8 K/ L 3.5-10.5 RED BLOOD CELL COUNT (BEAKER) (test gmgo=002) 2.73 M/ L 3.93-5.22 HEMOGLOBIN (BEAKER) (test dbjs=525) 8.4 GM/DL 11.2-15.7 HEMATOCRIT (BEAKER) (test gyar=995) 28.7 % 34.1-44.9 MEAN CORPUSCULAR VOLUME (BEAKER) (test nmyh=941) 105.1 fL 79.4-94.8 MEAN CORPUSCULAR HEMOGLOBIN (BEAKER) (test 30.8 pg 25.6-32.2 ddcf=926) MEAN CORPUSCULAR HEMOGLOBIN CONC (BEAKER) (test 29.3 GM/DL 32.2-35.5 kpmk=316) RED CELL DISTRIBUTION WIDTH (BEAKER) (test 17.2 % 11.7-14.4 doql=969) PLATELET COUNT (BEAKER) (test tfpd=589) 263 K/CU MM 150-450 MEAN PLATELET VOLUME (BEAKER) (test wasx=611) 9.9 fL 9.4-12.3 NUCLEATED RED BLOOD CELLS (BEAKER) (test 0 /100 WBC 0-0 jgth=191) POCT-GLUCOSE [id number] 23:27:00 Test Item Value Reference Range Comments POC-GLUCOSE METER (BEAKER) 141 mg/dL 70-110 TESTED AT [address] (test lzix=1440) [place] [id number] POCT-GLUCOSE [id number] 19:30:00 Test Item Value Reference Range Comments POC-GLUCOSE METER (BEAKER) 234 mg/dL 70-110 TESTED AT [address] (test qgvy=7868) [place] [address] POCT-GLUCOSE [id number] 11:55:00 Test Item Value Reference Range Comments POC-GLUCOSE METER (BEAKER) 317 mg/dL 70-110 TESTED AT [address] (test lgqb=8335) [place] [address] [id number] 05:14:00 Test Item Value Reference Range Comments PHOSPHORUS (BEAKER) (test ifva=215) 3.8 mg/dL 2.3-4.7 [id number] 05:14:00 Test Item Value Reference Range Comments MAGNESIUM (BEAKER) (test yvyu=938) 2.1 mg/dL 1.6-2.6 BASIC METABOLIC [id number] 05:14:00 Test Item Value Reference Range Comments SODIUM (BEAKER) (test 137 meq/L 136-145 wqjd=059) POTASSIUM (BEAKER) (test 4.6 meq/L 3.5-5.1 agui=789) CHLORIDE (BEAKER) (test 103 meq/L 98-107 ibxh=277) CO2 (BEAKER) (test 26 meq/L 22-29 esut=215) BLOOD UREA NITROGEN 31 mg/dL 7-21 (BEAKER) (test tjqn=450) CREATININE (BEAKER) (test 1.63 mg/dL 0.57-1.25 xcev=220) GLUCOSE RANDOM (BEAKER) 244 mg/dL 70-105 (test wcpc=681) CALCIUM (BEAKER) (test 9.2 mg/dL 8.4-10.2 wiph=704) EGFR (BEAKER) (test 38 mL/min/1.73 sq m ESTIMATED GFR IS NOT qkif=8917) ACCURATE CREATININE CLEARANCE IN PREDICTING GLOMERULAR FILTRATION RATE. ESTIMATED GFR IS NOT APPLICABLE FOR DIALYSIS PATIENTS. RAD, CHEST, 1 VIEW, NON [id number] 04:48:00Reason for exam:->post opShould this be performed [...] Verified Date/Time: 07/08/2018 04:48:56 Reading Location : [address] Reading Room Electronicallysigned by: NAVI GARCIA M.D. on 07/08/2018 04:48 [id number] 04:24:00 Test Item Value Reference Range Comments PARTIAL THROMBOPLASTIN TIME (BEAKER) (test 54.7 seconds 22.5-36.0 cfhq=841) PROTHROMBIN TIME/[id number] 04:23:00 Test Item Value Reference Range Comments PROTIME (BEAKER) (test hqsy=256) 14.8 seconds 11.7-14.7 INR (BEAKER) (test rfnj=103) 1.2 <=5.9 RECOMMENDED COUMADIN/WARFARIN INR THERAPY RANGESSTANDARD DOSE: 2.0 - 3.0 Includes: PROPHYLAXIS forvenous thrombosis, systemic embolization; TREATMENT for venous thrombosis and/or pulmonary embolus.HIGH RISK: Target INR is 2.5-3.5 for patients with mechanical heart valves.CBC (HEMOGRAM ONLY)2018-07-08 04:02:00 Test Item Value Reference Range Comments WHITE BLOOD CELL COUNT (BEAKER) (test khgr=950) 6.7 K/ L 3.5-10.5 RED BLOOD CELL COUNT (BEAKER) (test hjet=878) 2.79 M/ L 3.93-5.22 HEMOGLOBIN (BEAKER) (test zrzg=439) 8.6 GM/DL 11.2-15.7 HEMATOCRIT (BEAKER) (test ujdn=394) 29.0 % 34.1-44.9 MEAN CORPUSCULAR VOLUME (BEAKER) (test gjyb=761) 103.9 fL 79.4-94.8 MEAN CORPUSCULAR HEMOGLOBIN (BEAKER) (test 30.8 pg 25.6-32.2 meix=923) MEAN CORPUSCULAR HEMOGLOBIN CONC (BEAKER) (test 29.7 GM/DL 32.2-35.5 igia=909) RED CELL DISTRIBUTION WIDTH (BEAKER) (test 17.2 % 11.7-14.4 lnsh=845) PLATELET COUNT (BEAKER) (test dhqo=690) 295 K/CU MM 150-450 MEAN PLATELET VOLUME (BEAKER) (test pxog=778) 10.2 fL 9.4-12.3 NUCLEATED RED BLOOD CELLS (BEAKER) (test 0 /100 WBC 0-0 mvxt=497) RAD, CHEST, 1 VIEW, NON [id number] 08:41:00Reason for exam:->post opShould this be performed [...] MDReport Verified Date/Time: 07/07/2018 08:41:39 Reading Location: [facility] Radiology Reading Room [id number] 05:37:00 Test Item Value Reference Range Comments PHOSPHORUS (BEAKER) (test xwcf=124) 3.0 mg/dL 2.3-4.7 [id number] 05:37:00 Test Item Value Reference Range Comments MAGNESIUM (BEAKER) (test ezue=732) 2.1 mg/dL 1.6-2.6 BASIC METABOLIC [id number] 05:37:00 Test Item Value Reference Range Comments SODIUM (BEAKER) (test 137 meq/L 136-145 xbtq=787) POTASSIUM (BEAKER) (test 4.6 meq/L 3.5-5.1 bhmr=685) CHLORIDE (BEAKER) (test 102 meq/L 98-107 ipua=435) CO2 (BEAKER) (test 25 meq/L 22-29 rrin=266) BLOOD UREA NITROGEN 27 mg/dL 7-21 (BEAKER) (test jnpq=058) CREATININE (BEAKER) (test 1.44 mg/dL 0.57-1.25 xbjk=296) GLUCOSE RANDOM (BEAKER) 191 mg/dL 70-105 (test ntmv=664) CALCIUM (BEAKER) (test 9.2 mg/dL 8.4-10.2 wmio=330) EGFR (BEAKER) (test 43 mL/min/1.73 sq m ESTIMATED GFR IS NOT ngxe=0197) ACCURATE CREATININE CLEARANCE IN PREDICTING GLOMERULAR FILTRATION RATE. ESTIMATED GFR IS NOT APPLICABLE FOR DIALYSIS PATIENTS. [id number] 05:12:00 Test Item Value Reference Range Comments PARTIAL THROMBOPLASTIN TIME (BEAKER) (test 42.9 seconds 22.5-36.0 ryhb=837) PROTHROMBIN TIME/[id number] 05:11:00 Test Item Value Reference Range Comments PROTIME (BEAKER) (test qlxe=972) 14.1 seconds 11.7-14.7 INR (BEAKER) (test umms=744) 1.1 <=5.9 RECOMMENDED COUMADIN/WARFARIN INR THERAPY RANGESSTANDARD DOSE: 2.0 - 3.0 Includes: PROPHYLAXIS forvenous thrombosis, systemic embolization; TREATMENT for venous thrombosis and/or pulmonary embolus.HIGH RISK: Target INR is 2.5-3.5 for patients with mechanical heart valves.CBC (HEMOGRAM ONLY)2018-07-07 05:01:00 Test Item Value Reference Range Comments WHITE BLOOD CELL COUNT (BEAKER) (test dtpr=437) 6.9 K/ L 3.5-10.5 RED BLOOD CELL COUNT (BEAKER) (test njlr=378) 2.84 M/ L 3.93-5.22 HEMOGLOBIN (BEAKER) (test szqi=475) 8.8 GM/DL 11.2-15.7 HEMATOCRIT (BEAKER) (test npvq=889) 29.2 % 34.1-44.9 MEAN CORPUSCULAR VOLUME (BEAKER) (test kxrr=514) 102.8 fL 79.4-94.8 MEAN CORPUSCULAR HEMOGLOBIN (BEAKER) (test 31.0 pg 25.6-32.2 qfuy=136) MEAN CORPUSCULAR HEMOGLOBIN CONC (BEAKER) (test 30.1 GM/DL 32.2-35.5 njss=487) RED CELL DISTRIBUTION WIDTH (BEAKER) (test 17.0 % 11.7-14.4 ysxm=094) PLATELET COUNT (BEAKER) (test zphu=143) 270 K/CU MM 150-450 MEAN PLATELET VOLUME (BEAKER) (test uceq=567) 10.2 fL 9.4-12.3 NUCLEATED RED BLOOD CELLS (BEAKER) (test 0 /100 WBC 0-0 ltud=779) RAD, CHEST, 1 VIEW, NON [id number] 17:48:00Reason for exam:->Confirm PICC line placementShould this [...] MDReport Verified Date/Time: 07/06/2018 17:48:54 Reading Location: [facility] Consult Reading Room Electronically signed by: GEO RICO M.D. on 2018 05:48 [id number] 17:23:00 Test Item Value Reference Range Comments MAGNESIUM (BEAKER) (test stdt=514) 2.2 mg/dL 1.6-2.6 BASIC METABOLIC [id number] 17:23:00 Test Item Value Reference Range Comments SODIUM (BEAKER) (test 137 meq/L 136-145 irro=717) POTASSIUM (BEAKER) (test 4.9 meq/L 3.5-5.1 yapw=198) CHLORIDE (BEAKER) (test 103 meq/L 98-107 gviy=225) CO2 (BEAKER) (test 25 meq/L 22-29 xsjx=758) BLOOD UREA NITROGEN 25 mg/dL 7-21 (BEAKER) (test yitq=659) CREATININE (BEAKER) (test 1.41 mg/dL 0.57-1.25 avhr=802) GLUCOSE RANDOM (BEAKER) 219 mg/dL 70-105 (test raht=492) CALCIUM (BEAKER) (test 9.0 mg/dL 8.4-10.2 lpfj=239) EGFR (BEAKER) (test 45 mL/min/1.73 sq m ESTIMATED GFR IS NOT hhkl=7413) ACCURATE CREATININE CLEARANCE IN PREDICTING GLOMERULAR FILTRATION RATE. ESTIMATED GFR IS NOT APPLICABLE FOR DIALYSIS PATIENTS. BLOOD GAS, [id number] 16:33:00 Test Item Value Reference Range Comments PH ARTERIAL (BEAKER) (test ckan=929) 7.46 7.35-7.45 PCO2 ARTERIAL (BEAKER) (test kggk=868) 42 mmHg 35-45 PO2 ARTERIAL (BEAKER) (test vdig=673) 63 mmHg 80-90 O2 SATURATION ARTERIAL (BEAKER) (test ftid=828) 93.1 % 96.0-97.0 HCO3 ARTERIAL (BEAKER) (test mmir=026) 29 mmol/L 21-29 BASE EXCESS ARTERIAL (BEAKER) (test semk=499) 4.4 mmol/L -2.0-3.0 PATIENT TEMPERATURE (BEAKER) (test pvoa=6418) 37.0 C FIO2 (BEAKER) (test mamu=5505) 32.0 % RAD, CHEST, 1 VIEW, NON [id number] 13:22:00Reason for exam:->post opShould this be performed at the bedside?->YesFINAL REPORT Chest one view. Clinical history: post op Comparison: 07/05/2018 Discussion: A frontal chest is provided. Cardiomediastinal contours are unchanged. A left IJ line is in stable position. There is mild pulmonary edema. No new consolidation. No pneumothorax. Small bilateral pleural effusions are present. Signed: Morgan Cheng Verified Date/Time: 07/06/2018 13:22:02 Reading Location: [address] Consult Reading Room [id number] 04:30:00 Test Item Value Reference Range Comments PHOSPHORUS (BEAKER) (test cdda=595) 3.2 mg/dL 2.3-4.7 [id number] 04:30:00 Test Item Value Reference Range Comments MAGNESIUM (BEAKER) (test ndoz=062) 2.2 mg/dL 1.6-2.6 BASIC METABOLIC [id number] 04:30:00 Test Item Value Reference Range Comments SODIUM (BEAKER) (test 138 meq/L 136-145 vbfm=852) POTASSIUM (BEAKER) (test 4.4 meq/L 3.5-5.1 lntz=263) CHLORIDE (BEAKER) (test 104 meq/L 98-107 qlyx=415) CO2 (BEAKER) (test 28 meq/L 22-29 krgt=961) BLOOD UREA NITROGEN 25 mg/dL 7-21 (BEAKER) (test gvjp=734) CREATININE (BEAKER) (test 1.43 mg/dL 0.57-1.25 njbo=649) GLUCOSE RANDOM (BEAKER) 207 mg/dL 70-105 (test mwyg=472) CALCIUM (BEAKER) (test 8.9 mg/dL 8.4-10.2 luxl=514) EGFR (BEAKER) (test 44 mL/min/1.73 sq m ESTIMATED GFR IS NOT qczw=9671) ACCURATE CREATININE CLEARANCE IN PREDICTING GLOMERULAR FILTRATION RATE. ESTIMATED GFR IS NOT APPLICABLE FOR DIALYSIS PATIENTS. PROTHROMBIN TIME/[id number] 04:06:00 Test Item Value Reference Range Comments PROTIME (BEAKER) (test kwab=372) 14.6 seconds 11.7-14.7 INR (BEAKER) (test heby=634) 1.1 <=5.9 RECOMMENDED COUMADIN/WARFARIN INR THERAPY RANGESSTANDARD DOSE: 2.0 - 3.0 Includes: PROPHYLAXIS forvenous thrombosis, systemic embolization; TREATMENT for venous thrombosis and/or pulmonary embolus.HIGH RISK: Target INR is 2.5-3.5 for patients with mechanical heart valves.[id number] 04:06:00 Test Item Value Reference Range Comments PARTIAL THROMBOPLASTIN TIME (BEAKER) (test 47.8 seconds 22.5-36.0 cicl=409) CBC (HEMOGRAM ONLY)2018-07-06 03:53:00 Test Item Value Reference Range Comments WHITE BLOOD CELL COUNT (BEAKER) (test rwto=563) 7.1 K/ L 3.5-10.5 RED BLOOD CELL COUNT (BEAKER) (test ksfi=903) 2.77 M/ L 3.93-5.22 HEMOGLOBIN (BEAKER) (test lovo=302) 8.4 GM/DL 11.2-15.7 HEMATOCRIT (BEAKER) (test kxem=280) 28.6 % 34.1-44.9 MEAN CORPUSCULAR VOLUME (BEAKER) (test ujnp=735) 103.2 fL 79.4-94.8 MEAN CORPUSCULAR HEMOGLOBIN (BEAKER) (test 30.3 pg 25.6-32.2 wfqa=519) MEAN CORPUSCULAR HEMOGLOBIN CONC (BEAKER) (test 29.4 GM/DL 32.2-35.5 aeny=565) RED CELL DISTRIBUTION WIDTH (BEAKER) (test 17.1 % 11.7-14.4 zypj=988) PLATELET COUNT (BEAKER) (test lmfy=955) 267 K/CU MM 150-450 MEAN PLATELET VOLUME (BEAKER) (test xequ=884) 9.9 fL 9.4-12.3 NUCLEATED RED BLOOD CELLS (BEAKER) (test 0 /100 WBC 0-0 wbdq=786) HEPATIC FUNCTION [id number] 17:51:00 Test Item Value Reference Range Comments TOTAL PROTEIN (BEAKER) (test mkwp=987) 6.2 gm/dL 6.0-8.3 ALBUMIN (BEAKER) (test akdw=0747) 3.2 g/dL 3.5-5.0 BILIRUBIN TOTAL (BEAKER) (test efgu=886) 0.7 mg/dL 0.2-1.2 BILIRUBIN DIRECT (BEAKER) (test mqkv=036) 0.5 mg/dL 0.1-0.5 ALKALINE PHOSPHATASE (BEAKER) (test xdoa=604) 84 U/L 40-150 AST (SGOT) (BEAKER) (test ehht=082) 16 U/L 5-34 ALT (SGPT) (BEAKER) (test rydg=109) 9 U/L 6-55 RAD, CHEST, 1 VIEW, NON [id number] 08:39:00Reason for exam:->post opShould this be performed [...] change. Signed: Willian Mckeon MDReport Verified Date/Time: 07/05/2018 08:39:46 Reading Location: [facility] Radiology Reading Room [id number] 04:33:00 Test Item Value Reference Range Comments MAGNESIUM (BEAKER) (test 2.6 mg/dL 1.6-2.6 Specimen slightly hemolyzed bpth=338) [id number] 04:33:00 Test Item Value Reference Range Comments PHOSPHORUS (BEAKER) (test 2.9 mg/dL 2.3-4.7 Specimen slightly hemolyzed bief=207) BASIC METABOLIC [id number] 04:33:00 Test Item Value Reference Range Comments SODIUM (BEAKER) (test 139 meq/L 136-145 xhzg=295) POTASSIUM (BEAKER) (test 4.5 meq/L 3.5-5.1 Specimen slightly stes=446) hemolyzed CHLORIDE (BEAKER) (test 105 meq/L 98-107 jczw=719) CO2 (BEAKER) (test 28 meq/L 22-29 ofrr=527) BLOOD UREA NITROGEN 26 mg/dL 7-21 (BEAKER) (test koxo=814) CREATININE (BEAKER) (test 1.32 mg/dL 0.57-1.25 Specimen slightly tqfu=181) hemolyzed GLUCOSE RANDOM (BEAKER) 111 mg/dL 70-105 (test chwi=810) CALCIUM (BEAKER) (test 8.5 mg/dL 8.4-10.2 rnym=324) EGFR (BEAKER) (test 48 mL/min/1.73 sq m ESTIMATED GFR IS NOT rfud=9151) ACCURATE CREATININE CLEARANCE IN PREDICTING GLOMERULAR FILTRATION RATE. ESTIMATED GFR IS NOT APPLICABLE FOR DIALYSIS PATIENTS. [id number] 04:23:00 Test Item Value Reference Range Comments PARTIAL THROMBOPLASTIN TIME (BEAKER) (test 49.0 seconds 22.5-36.0 dcou=090) PROTHROMBIN TIME/[id number] 04:22:00 Test Item Value Reference Range Comments PROTIME (BEAKER) (test cqdw=078) 14.3 seconds 11.7-14.7 INR (BEAKER) (test gzfe=248) 1.1 <=5.9 RECOMMENDED COUMADIN/WARFARIN INR THERAPY RANGESSTANDARD DOSE: 2.0 - 3.0 Includes: PROPHYLAXIS forvenous thrombosis, systemic embolization; TREATMENT for venous thrombosis and/or pulmonary embolus.HIGH RISK: Target INR is 2.5-3.5 for patients with mechanical heart valves.CBC (HEMOGRAM ONLY)2018-07-05 04:13:00 Test Item Value Reference Range Comments WHITE BLOOD CELL COUNT (BEAKER) (test kjuq=892) 6.6 K/ L 3.5-10.5 RED BLOOD CELL COUNT (BEAKER) (test jiwy=781) 2.60 M/ L 3.93-5.22 HEMOGLOBIN (BEAKER) (test hxnd=385) 7.9 GM/DL 11.2-15.7 HEMATOCRIT (BEAKER) (test ufag=740) 26.5 % 34.1-44.9 MEAN CORPUSCULAR VOLUME (BEAKER) (test jqbi=330) 101.9 fL 79.4-94.8 MEAN CORPUSCULAR HEMOGLOBIN (BEAKER) (test 30.4 pg 25.6-32.2 ubtl=515) MEAN CORPUSCULAR HEMOGLOBIN CONC (BEAKER) (test 29.8 GM/DL 32.2-35.5 kzog=335) RED CELL DISTRIBUTION WIDTH (BEAKER) (test 17.4 % 11.7-14.4 jrnq=969) PLATELET COUNT (BEAKER) (test ryqf=246) 248 K/CU MM 150-450 MEAN PLATELET VOLUME (BEAKER) (test oynp=759) 10.4 fL 9.4-12.3 NUCLEATED RED BLOOD CELLS (BEAKER) (test 0 /100 WBC 0-0 vtea=544) POCT-GLUCOSE [id number] 18:22:00 Test Item Value Reference Range Comments POC-GLUCOSE METER (BEAKER) 166 mg/dL 70-110 TESTED AT [address] (test hysp=7771) [facility] [id number] RAD, CHEST, 1 VIEW, NON [id number] 08:37:00Reason for exam:->post opShould this be performed [...] Diaz Verified Date/Time: 07/04/2018 08:37:54 Reading Location: [facility] Radiology Reading Room Electronically signed by: VIRGINIA DIAZ M.D. on 2018 08:37 [id number] 04:36:00 Test Item Value Reference Range Comments PARTIAL THROMBOPLASTIN TIME (BEAKER) (test 49.7 seconds 22.5-36.0 jthj=228) PROTHROMBIN [id number] 04:35:00 Test Item Value Reference Range Comments PROTIME (BEAKER) (test yuie=408) 15.0 seconds 11.7-14.7 INR (BEAKER) (test wyeg=871) 1.2 <=5.9 RECOMMENDED COUMADIN/WARFARIN INR THERAPY RANGESSTANDARD DOSE: 2.0 - 3.0 Includes: PROPHYLAXIS forvenous thrombosis, systemic embolization; TREATMENT for venous thrombosis and/or pulmonary embolus.HIGH RISK: Target INR is 2.5-3.5 for patients with mechanical heart valves.[id number] 04:35:00 Test Item Value Reference Range Comments PHOSPHORUS (BEAKER) (test lrtc=629) 2.5 mg/dL 2.3-4.7 [id number] 04:35:00 Test Item Value Reference Range Comments MAGNESIUM (BEAKER) (test ldny=024) 2.2 mg/dL 1.6-2.6 BASIC METABOLIC [id number] 04:35:00 Test Item Value Reference Range Comments SODIUM (BEAKER) (test 138 meq/L 136-145 dfyv=836) POTASSIUM (BEAKER) (test 3.8 meq/L 3.5-5.1 kebp=852) CHLORIDE (BEAKER) (test 102 meq/L 98-107 oftn=732) CO2 (BEAKER) (test 30 meq/L 22-29 imhv=753) BLOOD UREA NITROGEN 28 mg/dL 7-21 (BEAKER) (test auow=922) CREATININE (BEAKER) (test 1.48 mg/dL 0.57-1.25 qhba=563) GLUCOSE RANDOM (BEAKER) 175 mg/dL 70-105 (test yukh=160) CALCIUM (BEAKER) (test 8.6 mg/dL 8.4-10.2 rzju=630) EGFR (BEAKER) (test 42 mL/min/1.73 sq m ESTIMATED GFR IS NOT xubi=6063) ACCURATE CREATININE CLEARANCE IN PREDICTING GLOMERULAR FILTRATION RATE. ESTIMATED GFR IS NOT APPLICABLE FOR DIALYSIS PATIENTS. CBC (HEMOGRAM ONLY)2018-07-04 04:16:00 Test Item Value Reference Range Comments WHITE BLOOD CELL COUNT (BEAKER) (test foen=024) 7.4 K/ L 3.5-10.5 RED BLOOD CELL COUNT (BEAKER) (test enje=484) 2.76 M/ L 3.93-5.22 HEMOGLOBIN (BEAKER) (test ghqg=628) 8.5 GM/DL 11.2-15.7 HEMATOCRIT (BEAKER) (test nlzp=225) 28.1 % 34.1-44.9 MEAN CORPUSCULAR VOLUME (BEAKER) (test bgtf=685) 101.8 fL 79.4-94.8 MEAN CORPUSCULAR HEMOGLOBIN (BEAKER) (test 30.8 pg 25.6-32.2 exgw=765) MEAN CORPUSCULAR HEMOGLOBIN CONC (BEAKER) (test 30.2 GM/DL 32.2-35.5 qscl=295) RED CELL DISTRIBUTION WIDTH (BEAKER) (test 17.7 % 11.7-14.4 eqrj=728) PLATELET COUNT (BEAKER) (test obnx=810) 268 K/CU MM 150-450 MEAN PLATELET VOLUME (BEAKER) (test maba=897) 10.2 fL 9.4-12.3 NUCLEATED RED BLOOD CELLS (BEAKER) (test 0 /100 WBC 0-0 gsno=762) [id number] 10:56:00 Test Item Value Reference Range Comments POTASSIUM (BEAKER) (test jcog=618) 4.3 meq/L 3.5-5.1 Check Serum Potassium level 30 minutes after IV potassium replacement completed.RAD, CHEST, 1 VIEW, NON [id number] 08:24:00Reason for exam:-> post opShould this be [...] MDReport Verified Date/Time: 07/03/2018 08:24:18 Reading Location: [facility] Radiology Reading Room POCT-GLUCOSE [id number] 08:16:00 Test Item Value Reference Range Comments POC-GLUCOSE METER (BEAKER) 164 mg/dL 70-110 TESTED AT [facility] [address] (test cmhu=3084) [facility] [address] RAD, ABDOMEN/KUB, 1 VIEW [id number] 06:21:00Reason for exam:->abd painShould this be performed [...] details on intrathoracic contents. Signed: Maryana Spann Verified Date/Time: 07/03/2018 06:21:16 Reading Location: [address] Transitional Reading Room [id number] 04:00:00 Test Item Value Reference Range Comments PHOSPHORUS (BEAKER) (test ebas=163) 2.3 mg/dL 2.3-4.7 [id number] 04:00:00 Test Item Value Reference Range Comments MAGNESIUM (BEAKER) (test mcil=276) 1.9 mg/dL 1.6-2.6 BASIC METABOLIC [id number] 04:00:00 Test Item Value Reference Range Comments SODIUM (BEAKER) (test 139 meq/L 136-145 alyt=478) POTASSIUM (BEAKER) (test 3.5 meq/L 3.5-5.1 crjz=781) CHLORIDE (BEAKER) (test 103 meq/L 98-107 gmry=823) CO2 (BEAKER) (test 27 meq/L 22-29 vatd=784) BLOOD UREA NITROGEN 27 mg/dL 7-21 (BEAKER) (test ulxt=036) CREATININE (BEAKER) (test 1.40 mg/dL 0.57-1.25 bijc=127) GLUCOSE RANDOM (BEAKER) 123 mg/dL 70-105 (test sfpf=210) CALCIUM (BEAKER) (test 8.9 mg/dL 8.4-10.2 kltj=824) EGFR (BEAKER) (test 45 mL/min/1.73 sq m ESTIMATED GFR IS NOT boyn=2680) ACCURATE CREATININE CLEARANCE IN PREDICTING GLOMERULAR FILTRATION RATE. ESTIMATED GFR IS NOT APPLICABLE FOR DIALYSIS PATIENTS. [id number] 03:59:00 Test Item Value Reference Range Comments PARTIAL THROMBOPLASTIN TIME (BEAKER) (test 48.9 seconds 22.5-36.0 mwtd=535) PROTHROMBIN [id number] 03:58:00 Test Item Value Reference Range Comments PROTIME (BEAKER) (test kixr=453) 15.3 seconds 11.7-14.7 INR (BEAKER) (test pqpr=474) 1.2 <=5.9 RECOMMENDED COUMADIN/WARFARIN INR THERAPY RANGESSTANDARD DOSE: 2.0 - 3.0 Includes: PROPHYLAXIS forvenous thrombosis, systemic embolization; TREATMENT for venous thrombosis and/or pulmonary embolus.HIGH RISK: Target INR is 2.5-3.5 for patients with mechanical heart valves.CBC (HEMOGRAM ONLY)2018-07-03 03:39:00 Test Item Value Reference Range Comments WHITE BLOOD CELL COUNT (BEAKER) (test eupi=357) 8.1 K/ L 3.5-10.5 RED BLOOD CELL COUNT (BEAKER) (test ztwo=027) 2.90 M/ L 3.93-5.22 HEMOGLOBIN (BEAKER) (test ioql=948) 9.0 GM/DL 11.2-15.7 HEMATOCRIT (BEAKER) (test sows=405) 29.4 % 34.1-44.9 MEAN CORPUSCULAR VOLUME (BEAKER) (test kduy=811) 101.4 fL 79.4-94.8 MEAN CORPUSCULAR HEMOGLOBIN (BEAKER) (test 31.0 pg 25.6-32.2 zbhu=843) MEAN CORPUSCULAR HEMOGLOBIN CONC (BEAKER) (test 30.6 GM/DL 32.2-35.5 rvxs=600) RED CELL DISTRIBUTION WIDTH (BEAKER) (test 17.8 % 11.7-14.4 pljm=280) PLATELET COUNT (BEAKER) (test izfo=933) 245 K/CU MM 150-450 MEAN PLATELET VOLUME (BEAKER) (test xacv=908) 9.8 fL 9.4-12.3 NUCLEATED RED BLOOD CELLS (BEAKER) (test 0 /100 WBC 0-0 yqrn=091) OXYGEN SATURATION, [id number] 10:53:00 Test Item Value Reference Range Comments O2 SATURATION (MEASURED) (BEAKER) (test hvul=8299) 50.1 % OXYGEN SATURATION, [id number] 08:54:00 Test Item Value Reference Range Comments O2 SATURATION (MEASURED) (BEAKER) (test kawj=1968) 45.3 % BLOOD GAS, [id number] 08:54:00 Test Item Value Reference Range Comments PH ARTERIAL (BEAKER) (test ocvi=768) 7.49 7.35-7.45 PCO2 ARTERIAL (BEAKER) (test vddh=197) 39 mmHg 35-45 PO2 ARTERIAL (BEAKER) (test pfhs=687) 64 mmHg 80-90 O2 SATURATION ARTERIAL (BEAKER) (test ibci=867) 94.6 % 96.0-97.0 HCO3 ARTERIAL (BEAKER) (test ohcy=203) 29 mmol/L 21-29 BASE EXCESS ARTERIAL (BEAKER) (test etdh=852) 5.1 mmol/L -2.0-3.0 PATIENT TEMPERATURE (BEAKER) (test eirn=1694) 36.1 C FIO2 (BEAKER) (test jiky=6942) 32.0 % RAD, CHEST, 1 VIEW, NON [id number] 06:40:00Reason for exam:->ETTShould this be performed at the bedside?->YesFINAL REPORT RAD , CHEST, 1 VIEW, NON DEPT INDICATION: ETT COMPARISON: Prior day's exam FINDINGS : Portable frontal view of the chest. IMPRESSION: Support Lines: Stable. Lungs and pleura: Unchanged airspace and pleural opacities. No pneumothorax.Heart and mediastinum: Stable contours. Stable surgical changes.Additional findings: None. Signed: Maryana Spann Verified Date/Time: 07/02/2018 06:40:32 Reading Location: [facility] B1 C013T Transitional Reading Room CBC W/PLT COUNT & AUTO [id number] 05:31 :00 Test Item Value Reference Range Comments WHITE BLOOD CELL COUNT (BEAKER) (test lckd=193) 7.9 K/ L 3.5-10.5 RED BLOOD CELL COUNT (BEAKER) (test kujl=574) 2.83 M/ L 3.93-5.22 HEMOGLOBIN (BEAKER) (test kkzb=941) 8.6 GM/DL 11.2-15.7 HEMATOCRIT (BEAKER) (test ezci=673) 28.4 % 34.1-44.9 MEAN CORPUSCULAR VOLUME (BEAKER) (test fmdk=089) 100.4 fL 79.4-94.8 MEAN CORPUSCULAR HEMOGLOBIN (BEAKER) (test 30.4 pg 25.6-32.2 miby=712) MEAN CORPUSCULAR HEMOGLOBIN CONC (BEAKER) (test 30.3 GM/DL 32.2-35.5 seqz=856) RED CELL DISTRIBUTION WIDTH (BEAKER) (test 17.9 % 11.7-14.4 jqpd=470) PLATELET COUNT (BEAKER) (test jgwz=896) 222 K/CU MM 150-450 MEAN PLATELET VOLUME (BEAKER) (test batx=626) 9.9 fL 9.4-12.3 NUCLEATED RED BLOOD CELLS (BEAKER) (test 0 /100 WBC 0-0 jqan=090) NEUTROPHILS RELATIVE PERCENT (BEAKER) (test 85 % cbge=647) LYMPHOCYTES RELATIVE PERCENT (BEAKER) (test 6 % pvrj=532) MONOCYTES RELATIVE PERCENT (BEAKER) (test 8 % wzab=255) EOSINOPHILS RELATIVE PERCENT (BEAKER) (test 1 % turd=158) BASOPHILS RELATIVE PERCENT (BEAKER) (test 0 % gcuj=796) NEUTROPHILS ABSOLUTE COUNT (BEAKER) (test 6.67 K/ L 1.56-6.13 mpsu=600) LYMPHOCYTES ABSOLUTE COUNT (BEAKER) (test 0.46 K/ L 1.18-3.74 shtw=351) MONOCYTES ABSOLUTE COUNT (BEAKER) (test 0.64 K/ L 0.24-0.36 dzck=770) EOSINOPHILS ABSOLUTE COUNT (BEAKER) (test 0.06 K/ L 0.04-0.36 lewz=813) BASOPHILS ABSOLUTE COUNT (BEAKER) (test 0.02 K/ L 0.01-0.08 vslf=534) IMMATURE GRANULOCYTES-RELATIVE PERCENT (BEAKER) 1 % 0-1 (test kbbe=5851) BASIC METABOLIC [id number] 04:54:00 Test Item Value Reference Range Comments SODIUM (BEAKER) (test 140 meq/L 136-145 adbm=246) POTASSIUM (BEAKER) (test 3.7 meq/L 3.5-5.1 blag=915) CHLORIDE (BEAKER) (test 104 meq/L 98-107 raxj=081) CO2 (BEAKER) (test 28 meq/L 22-29 kzwn=884) BLOOD UREA NITROGEN 29 mg/dL 7-21 (BEAKER) (test uwfd=138) CREATININE (BEAKER) (test 1.49 mg/dL 0.57-1.25 wahj=233) GLUCOSE RANDOM (BEAKER) 107 mg/dL 70-105 (test mpgd=427) CALCIUM (BEAKER) (test 8.9 mg/dL 8.4-10.2 hzhj=916) EGFR (BEAKER) (test 42 mL/min/1.73 sq m ESTIMATED GFR IS NOT qqxn=8591) ACCURATE CREATININE CLEARANCE IN PREDICTING GLOMERULAR FILTRATION RATE. ESTIMATED GFR IS NOT APPLICABLE FOR DIALYSIS PATIENTS. BASIC METABOLIC [id number] 18:41:00 Test Item Value Reference Range Comments SODIUM (BEAKER) (test 140 meq/L 136-145 fakt=561) POTASSIUM (BEAKER) (test 4.1 meq/L 3.5-5.1 pwxk=023) CHLORIDE (BEAKER) (test 104 meq/L 98-107 bvdi=914) CO2 (BEAKER) (test 25 meq/L 22-29 iitm=413) BLOOD UREA NITROGEN 31 mg/dL 7-21 (BEAKER) (test ahpt=480) CREATININE (BEAKER) (test 1.55 mg/dL 0.57-1.25 gtjq=729) GLUCOSE RANDOM (BEAKER) 127 mg/dL 70-105 (test ighe=263) CALCIUM (BEAKER) (test 9.0 mg/dL 8.4-10.2 mwed=863) EGFR (BEAKER) (test 40 mL/min/1.73 sq m ESTIMATED GFR IS NOT obay=6743) ACCURATE CREATININE CLEARANCE IN PREDICTING GLOMERULAR FILTRATION RATE. ESTIMATED GFR IS NOT APPLICABLE FOR DIALYSIS PATIENTS. BLOOD GAS, [id number] 18:12:00 Test Item Value Reference Range Comments PH ARTERIAL (BEAKER) (test psul=347) 7.50 7.35-7.45 PCO2 ARTERIAL (BEAKER) (test cimv=679) 39 mmHg 35-45 PO2 ARTERIAL (BEAKER) (test gtkn=797) 59 mmHg 80-90 O2 SATURATION ARTERIAL (BEAKER) (test tnoo=355) 92.7 % 96.0-97.0 HCO3 ARTERIAL (BEAKER) (test qzkt=791) 30 mmol/L 21-29 BASE EXCESS ARTERIAL (BEAKER) (test tlsd=072) 6.0 mmol/L -2.0-3.0 PATIENT TEMPERATURE (BEAKER) (test pciq=3559) 36.9 C FIO2 (BEAKER) (test gaum=2241) 32.0 % RAD, CHEST, 1 VIEW, NON [id number] 07:32:00Reason for exam:->ETTShould this be performed at the bedside?->YesFINAL REPORT Chest one view. Clinical history: ETT Comparison: 06/30/2018 Discussion: A frontal chest is provided. Cardiomediastinal contours are unchanged. ET has been removed. Left IJ line is unchanged. There is unchanged mild vascular congestion and interstitial edema. Probable small left effusion. No pneumothorax. Signed: Morgan Chengeport Verified Date/Time: 07/01/2018 07:32: 43 Reading Location: [facility] C013V Neuro Reading Room BASIC METABOLIC [id number] 06:20:00 Test Item Value Reference Range Comments SODIUM (BEAKER) (test 142 meq/L 136-145 haci=655) POTASSIUM (BEAKER) (test 4.3 meq/L 3.5-5.1 faot=445) CHLORIDE (BEAKER) (test 106 meq/L 98-107 mnfy=547) CO2 (BEAKER) (test 27 meq/L 22-29 ksix=125) BLOOD UREA NITROGEN 34 mg/dL 7-21 (BEAKER) (test bbtg=270) CREATININE (BEAKER) (test 1.67 mg/dL 0.57-1.25 knem=442) GLUCOSE RANDOM (BEAKER) 130 mg/dL 70-105 (test ltey=620) CALCIUM (BEAKER) (test 9.1 mg/dL 8.4-10.2 ubky=825) EGFR (BEAKER) (test 37 mL/min/1.73 sq m ESTIMATED GFR IS NOT jsxe=0575) ACCURATE CREATININE CLEARANCE IN PREDICTING GLOMERULAR FILTRATION RATE. ESTIMATED GFR IS NOT APPLICABLE FOR DIALYSIS PATIENTS. CBC W/PLT COUNT & AUTO [id number] 05:56:00 Test Item Value Reference Range Comments WHITE BLOOD CELL COUNT (BEAKER) (test mznk=142) 6.9 K/ L 3.5-10.5 RED BLOOD CELL COUNT (BEAKER) (test rppe=078) 2.88 M/ L 3.93-5.22 HEMOGLOBIN (BEAKER) (test lsjy=913) 8.9 GM/DL 11.2-15.7 HEMATOCRIT (BEAKER) (test mwuu=137) 29.5 % 34.1-44.9 MEAN CORPUSCULAR VOLUME (BEAKER) (test muav=109) 102.4 fL 79.4-94.8 MEAN CORPUSCULAR HEMOGLOBIN (BEAKER) (test 30.9 pg 25.6-32.2 fpki=210) MEAN CORPUSCULAR HEMOGLOBIN CONC (BEAKER) (test 30.2 GM/DL 32.2-35.5 dzpq=963) RED CELL DISTRIBUTION WIDTH (BEAKER) (test 17.8 % 11.7-14.4 sdyq=929) PLATELET COUNT (BEAKER) (test cvet=091) 211 K/CU MM 150-450 MEAN PLATELET VOLUME (BEAKER) (test levr=405) 9.6 fL 9.4-12.3 NUCLEATED RED BLOOD CELLS (BEAKER) (test 0 /100 WBC 0-0 jebu=518) NEUTROPHILS RELATIVE PERCENT (BEAKER) (test 86 % chxy=611) LYMPHOCYTES RELATIVE PERCENT (BEAKER) (test 5 % unpa=883) MONOCYTES RELATIVE PERCENT (BEAKER) (test 8 % lkvy=066) EOSINOPHILS RELATIVE PERCENT (BEAKER) (test 0 % hcnu=363) BASOPHILS RELATIVE PERCENT (BEAKER) (test 0 % qzmm=334) NEUTROPHILS ABSOLUTE COUNT (BEAKER) (test 5.94 K/ L 1.56-6.13 cvtv=158) LYMPHOCYTES ABSOLUTE COUNT (BEAKER) (test 0.37 K/ L 1.18-3.74 yajf=516) MONOCYTES ABSOLUTE COUNT (BEAKER) (test 0.53 K/ L 0.24-0.36 sjdf=092) EOSINOPHILS ABSOLUTE COUNT (BEAKER) (test 0.02 K/ L 0.04-0.36 owfl=573) BASOPHILS ABSOLUTE COUNT (BEAKER) (test 0.01 K/ L 0.01-0.08 ywaz=879) IMMATURE GRANULOCYTES-RELATIVE PERCENT (BEAKER) 0 % 0-1 (test rbpb=6771) [id number] 15:31:00 Test Item Value Reference Range Comments MAGNESIUM (BEAKER) (test dkee=328) 2.2 mg/dL 1.6-2.6 BASIC METABOLIC [id number] 15:31:00 Test Item Value Reference Range Comments SODIUM (BEAKER) (test 137 meq/L 136-145 wyjz=546) POTASSIUM (BEAKER) (test 4.5 meq/L 3.5-5.1 gxrc=898) CHLORIDE (BEAKER) (test 102 meq/L 98-107 gcxt=610) CO2 (BEAKER) (test 24 meq/L 22-29 nwmr=616) BLOOD UREA NITROGEN 36 mg/dL 7-21 (BEAKER) (test imin=834) CREATININE (BEAKER) (test 1.78 mg/dL 0.57-1.25 cafa=315) GLUCOSE RANDOM (BEAKER) 179 mg/dL 70-105 (test humr=209) CALCIUM (BEAKER) (test 8.8 mg/dL 8.4-10.2 qtgn=632) EGFR (BEAKER) (test 34 mL/min/1.73 sq m ESTIMATED GFR IS NOT gsqv=3972) ACCURATE CREATININE CLEARANCE IN PREDICTING GLOMERULAR FILTRATION RATE. ESTIMATED GFR IS NOT APPLICABLE FOR DIALYSIS PATIENTS. CBC W/PLT COUNT & AUTO [id number] 15:17:00 Test Item Value Reference Range Comments WHITE BLOOD CELL COUNT (BEAKER) (test wpel=650) 7.3 K/ L 3.5-10.5 RED BLOOD CELL COUNT (BEAKER) (test zqhd=369) 3.02 M/ L 3.93-5.22 HEMOGLOBIN (BEAKER) (test flns=781) 9.5 GM/DL 11.2-15.7 HEMATOCRIT (BEAKER) (test hcpr=788) 31.3 % 34.1-44.9 MEAN CORPUSCULAR VOLUME (BEAKER) (test hzfp=793) 103.6 fL 79.4-94.8 MEAN CORPUSCULAR HEMOGLOBIN (BEAKER) (test 31.5 pg 25.6-32.2 awbr=261) MEAN CORPUSCULAR HEMOGLOBIN CONC (BEAKER) (test 30.4 GM/DL 32.2-35.5 nkzc=818) RED CELL DISTRIBUTION WIDTH (BEAKER) (test 17.8 % 11.7-14.4 oqwu=064) PLATELET COUNT (BEAKER) (test htbg=718) 229 K/CU MM 150-450 MEAN PLATELET VOLUME (BEAKER) (test whtt=680) 9.7 fL 9.4-12.3 NUCLEATED RED BLOOD CELLS (BEAKER) (test 0 /100 WBC 0-0 raot=339) NEUTROPHILS RELATIVE PERCENT (BEAKER) (test 91 % ckoj=421) LYMPHOCYTES RELATIVE PERCENT (BEAKER) (test 3 % jqqt=246) MONOCYTES RELATIVE PERCENT (BEAKER) (test 5 % aoew=005) EOSINOPHILS RELATIVE PERCENT (BEAKER) (test 0 % bhvv=743) BASOPHILS RELATIVE PERCENT (BEAKER) (test 0 % rvdc=269) NEUTROPHILS ABSOLUTE COUNT (BEAKER) (test 6.62 K/ L 1.56-6.13 pjtu=161) LYMPHOCYTES ABSOLUTE COUNT (BEAKER) (test 0.23 K/ L 1.18-3.74 zmvu=164) MONOCYTES ABSOLUTE COUNT (BEAKER) (test 0.39 K/ L 0.24-0.36 esbu=392) EOSINOPHILS ABSOLUTE COUNT (BEAKER) (test 0.00 K/ L 0.04-0.36 uzxx=398) BASOPHILS ABSOLUTE COUNT (BEAKER) (test 0.02 K/ L 0.01-0.08 prqk=459) IMMATURE GRANULOCYTES-RELATIVE PERCENT (BEAKER) 0 % 0-1 (test kgig=6393) RAD, CHEST, 1 VIEW, NON [id number] 08:50:00Reason for exam:->ETTShould this be performed at [...] MDReport Verified Date/Time: 06/30/2018 08:50:44 Reading Location: [address] Ultrasound Reading Room [id number] 06:52:00 Test Item Value Reference Range Comments ACTIVATED CLOTTING TIME 147 sec TESTED AT [address] ([facility]) (test ijtm=465) [place] [address] [id number] 06:52:00 Test Item Value Reference Range Comments ACTIVATED CLOTTING TIME 252 sec TESTED AT [address] ([facility]) (test derh=418) [place] [address] [id number] 06:52:00 Test Item Value Reference Range Comments ACTIVATED CLOTTING TIME 257 sec TESTED AT [address] ([facility]) (test qlqc=621) [place] [address] [id number] 06:52:00 Test Item Value Reference Range Comments ACTIVATED CLOTTING TIME 246 sec TESTED AT [address] ([facility]) (test veiq=113) [place] [address] LACTIC ACID, [id number] 05:16:00 Test Item Value Reference Range Comments LACTATE BLOOD ARTERIAL (2) ([facility]) (test 1.0 mmol/L 0.5-2.2 gydf=8997) BLOOD GAS, [id number] 05:06:00 Test Item Value Reference Range Comments PH ARTERIAL ([facility]) (test iigy=580) 7.38 7.35-7.45 PCO2 ARTERIAL (BEAKER) (test csgh=269) 40 mmHg 35-45 PO2 ARTERIAL (BEAKER) (test zoai=971) 107 mmHg 80-90 O2 SATURATION ARTERIAL (BEAKER) (test ieda=442) 97.9 % 96.0-97.0 HCO3 ARTERIAL (BEAKER) (test bjuc=181) 23 mmol/L 21-29 BASE EXCESS ARTERIAL (BEAKER) (test aync=548) -2.1 mmol/L -2.0-3.0 PATIENT TEMPERATURE (BEAKER) (test ojgo=8166) 36.7 C FIO2 (BEAKER) (test tfek=7256) 60.0 % CBC W/PLT COUNT & AUTO [id number] 04:59:00 Test Item Value Reference Range Comments WHITE BLOOD CELL COUNT (BEAKER) (test zaka=564) 8.9 K/ L 3.5-10.5 RED BLOOD CELL COUNT (BEAKER) (test zbss=700) 3.28 M/ L 3.93-5.22 HEMOGLOBIN (BEAKER) (test emdm=185) 10.0 GM/DL 11.2-15.7 HEMATOCRIT (BEAKER) (test tabv=356) 34.4 % 34.1-44.9 MEAN CORPUSCULAR VOLUME (BEAKER) (test iyrx=447) 104.9 fL 79.4-94.8 MEAN CORPUSCULAR HEMOGLOBIN (BEAKER) (test 30.5 pg 25.6-32.2 lwrg=338) MEAN CORPUSCULAR HEMOGLOBIN CONC (BEAKER) (test 29.1 GM/DL 32.2-35.5 pamq=873) RED CELL DISTRIBUTION WIDTH (BEAKER) (test 17.6 % 11.7-14.4 bwlv=921) PLATELET COUNT (BEAKER) (test wopl=724) 276 K/CU MM 150-450 MEAN PLATELET VOLUME (BEAKER) (test fnqz=034) 9.7 fL 9.4-12.3 NUCLEATED RED BLOOD CELLS (BEAKER) (test 0 /100 WBC 0-0 tthr=161) NEUTROPHILS RELATIVE PERCENT (BEAKER) (test 90 % kswm=477) LYMPHOCYTES RELATIVE PERCENT (BEAKER) (test 3 % wteb=127) MONOCYTES RELATIVE PERCENT (BEAKER) (test 6 % tpqv=134) EOSINOPHILS RELATIVE PERCENT (BEAKER) (test 0 % yyms=027) BASOPHILS RELATIVE PERCENT (BEAKER) (test 0 % epwi=952) NEUTROPHILS ABSOLUTE COUNT (BEAKER) (test 8.00 K/ L 1.56-6.13 lahb=935) LYMPHOCYTES ABSOLUTE COUNT (BEAKER) (test 0.30 K/ L 1.18-3.74 jgvu=966) MONOCYTES ABSOLUTE COUNT (BEAKER) (test 0.51 K/ L 0.24-0.36 fkrx=587) EOSINOPHILS ABSOLUTE COUNT (BEAKER) (test 0.01 K/ L 0.04-0.36 bozj=607) BASOPHILS ABSOLUTE COUNT (BEAKER) (test 0.02 K/ L 0.01-0.08 odfb=091) IMMATURE GRANULOCYTES-RELATIVE PERCENT (BEAKER) 1 % 0-1 (test bowf=7064) B-TYPE NATRIURETIC FACTOR (BNP)2018-06-30 04:19:00 Test Item Value Reference Range Comments B-TYPE NATRIURETIC PEPTIDE (BEAKER) (test 82339 pg/mL 0-100 iwru=062) HEPATIC FUNCTION [id number] 04:01:00 Test Item Value Reference Range Comments TOTAL PROTEIN (BEAKER) (test whcx=855) 6.5 gm/dL 6.0-8.3 ALBUMIN (BEAKER) (test bjay=6399) 3.4 g/dL 3.5-5.0 BILIRUBIN TOTAL (BEAKER) (test nplt=443) 1.2 mg/dL 0.2-1.2 BILIRUBIN DIRECT (BEAKER) (test ufcn=827) 0.8 mg/dL 0.1-0.5 ALKALINE PHOSPHATASE (BEAKER) (test yzgs=851) 103 U/L 40-150 AST (SGOT) (BEAKER) (test qfpq=938) 17 U/L 5-34 ALT (SGPT) (BEAKER) (test zdnj=918) 15 U/L 6-55 RAD, CHEST, 1 VIEW, NON [id number] 02:31:00Reason for exam:->ETTShould this be performed at [...] MDReport Verified Date/Time: 06/30/2018 02:31:37 Reading Location: [address] Transitional Reading Room [id number] 02:27:00 Test Item Value Reference Range Comments PARTIAL THROMBOPLASTIN TIME (BEAKER) (test 39.5 seconds 22.5-36.0 ewhc=231) PROTHROMBIN [id number] 02:26:00 Test Item Value Reference Range Comments PROTIME (BEAKER) (test ncbn=129) 16.5 seconds 11.7-14.7 INR (BEAKER) (test kpbh=996) 1.3 <=5.9 RECOMMENDED COUMADIN/WARFARIN INR THERAPY RANGESSTANDARD DOSE: 2.0 - 3.0 Includes: PROPHYLAXIS forvenous thrombosis, systemic embolization; TREATMENT for venous thrombosis and/or pulmonary embolus.HIGH RISK: Target INR is 2.5-3.5 for patients with mechanical heart valves.BASIC METABOLIC [id number] 02:09: 00 Test Item Value Reference Range Comments SODIUM (BEAKER) (test 137 meq/L 136-145 tmvt=857) POTASSIUM (BEAKER) (test 4.9 meq/L 3.5-5.1 ojwp=590) CHLORIDE (BEAKER) (test 103 meq/L 98-107 uxit=209) CO2 (BEAKER) (test 23 meq/L 22-29 gank=707) BLOOD UREA NITROGEN 32 mg/dL 7-21 (BEAKER) (test pyfx=051) CREATININE (BEAKER) (test 1.74 mg/dL 0.57-1.25 vzkd=506) GLUCOSE RANDOM (BEAKER) 143 mg/dL 70-105 (test mftq=958) CALCIUM (BEAKER) (test 8.8 mg/dL 8.4-10.2 zesl=248) EGFR (BEAKER) (test 35 mL/min/1.73 sq m ESTIMATED GFR IS NOT madm=6681) ACCURATE CREATININE CLEARANCE IN PREDICTING GLOMERULAR FILTRATION RATE. ESTIMATED GFR IS NOT APPLICABLE FOR DIALYSIS PATIENTS. LACTIC ACID, [id number] 02:06:00 Test Item Value Reference Range Comments LACTATE BLOOD ARTERIAL (2) (BEAKER) (test 0.8 mmol/L 0.5-2.2 sazw=3477) OXYGEN SATURATION, [id number] 01:59:00 Test Item Value Reference Range Comments O2 SATURATION (MEASURED) (BEAKER) (test iqwd=7903) 79.3 % BLOOD GAS, [id number] 01:58:00 Test Item Value Reference Range Comments PH ARTERIAL (BEAKER) (test qmrj=523) 7.34 7.35-7.45 PCO2 ARTERIAL (BEAKER) (test wzhs=325) 50 mmHg 35-45 PO2 ARTERIAL (BEAKER) (test samo=492) 78 mmHg 80-90 O2 SATURATION ARTERIAL (BEAKER) (test vgpb=823) 95.4 % 96.0-97.0 HCO3 ARTERIAL (BEAKER) (test llaf=801) 27 mmol/L 21-29 BASE EXCESS ARTERIAL (BEAKER) (test pfez=427) 0.3 mmol/L -2.0-3.0 PATIENT TEMPERATURE (BEAKER) (test down=6822) 35.8 C FIO2 (BEAKER) (test tyqq=8211) 60.0 % CBC W/PLT COUNT & AUTO [id number] 01:57:00 Test Item Value Reference Range Comments WHITE BLOOD CELL COUNT (BEAKER) (test qelv=672) 9.7 K/ L 3.5-10.5 RED BLOOD CELL COUNT (BEAKER) (test umkk=585) 3.18 M/ L 3.93-5.22 HEMOGLOBIN (BEAKER) (test uekt=969) 9.8 GM/DL 11.2-15.7 HEMATOCRIT (BEAKER) (test pdgn=663) 33.3 % 34.1-44.9 MEAN CORPUSCULAR VOLUME (BEAKER) (test hoqp=597) 104.7 fL 79.4-94.8 MEAN CORPUSCULAR HEMOGLOBIN (BEAKER) (test 30.8 pg 25.6-32.2 ecwh=143) MEAN CORPUSCULAR HEMOGLOBIN CONC (BEAKER) (test 29.4 GM/DL 32.2-35.5 uvsi=575) RED CELL DISTRIBUTION WIDTH (BEAKER) (test 17.5 % 11.7-14.4 oygx=422) PLATELET COUNT (BEAKER) (test mkoe=612) 289 K/CU MM 150-450 MEAN PLATELET VOLUME (BEAKER) (test zshk=307) 9.7 fL 9.4-12.3 NUCLEATED RED BLOOD CELLS (BEAKER) (test 0 /100 WBC 0-0 ghlx=368) NEUTROPHILS RELATIVE PERCENT (BEAKER) (test 88 % uwpf=060) LYMPHOCYTES RELATIVE PERCENT (BEAKER) (test 5 % ngkj=541) MONOCYTES RELATIVE PERCENT (BEAKER) (test 4 % kftq=172) EOSINOPHILS RELATIVE PERCENT (BEAKER) (test 1 % wfqv=814) BASOPHILS RELATIVE PERCENT (BEAKER) (test 0 % vwdx=337) NEUTROPHILS ABSOLUTE COUNT (BEAKER) (test 8.53 K/ L 1.56-6.13 agbn=413) LYMPHOCYTES ABSOLUTE COUNT (BEAKER) (test 0.48 K/ L 1.18-3.74 amqr=261) MONOCYTES ABSOLUTE COUNT (BEAKER) (test 0.41 K/ L 0.24-0.36 mtla=371) EOSINOPHILS ABSOLUTE COUNT (BEAKER) (test 0.13 K/ L 0.04-0.36 empp=619) BASOPHILS ABSOLUTE COUNT (BEAKER) (test 0.04 K/ L 0.01-0.08 mqfk=534) IMMATURE GRANULOCYTES-RELATIVE PERCENT (BEAKER) 1 % 0-1 (test zdve=3352) FILTER IONIZED [id number] 23:29:00 Test Item Value Reference Range Comments FILTER IONIZED CALCIUM (BEAKER) (test ucmi=0719) 1.14 mmol/L Reference Range: No NormalsBLOOD GAS, [id number] 23:29:00 Test Item Value Reference Range Comments PH ARTERIAL (BEAKER) (test bjbj=593) 7.38 7.35-7.45 PCO2 ARTERIAL (BEAKER) (test sprn=426) 49 mmHg 35-45 PO2 ARTERIAL (BEAKER) (test sugk=810) 202 mmHg 80-90 O2 SATURATION ARTERIAL (BEAKER) (test vuxz=659) 99.4 % 96.0-97.0 HCO3 ARTERIAL (BEAKER) (test xmtn=868) 29 mmol/L 21-29 BASE EXCESS ARTERIAL (BEAKER) (test slrt=486) 2.6 mmol/L -2.0-3.0 PATIENT TEMPERATURE (BEAKER) (test flxa=9464) 35.6 C FIO2 (BEAKER) (test fibr=4737) 100.0 % HGB/HCT (H&H) - STAT [id number] 23:28:00 Test Item Value Reference Range Comments HEMOGLOBIN (BEAKER) (test hrga=748) 10.7 g/dL 12.0-15.0 HEMATOCRIT (BEAKER) (test lyxr=861) 31.0 % 36.0-45.0 GLUCOSE-STAT [id number] 23:25:00 Test Item Value Reference Range Comments GLUCOSE RANDOM (BEAKER) (test pvsz=585) 97 mg/dL 70-110 SODIUM NA-STAT [id number] 23:25:00 Test Item Value Reference Range Comments SODIUM (BEAKER) (test vjgn=925) 137 meq/L 135-148 POTASSIUM-STAT [id number] 23:25:00 Test Item Value Reference Range Comments POTASSIUM (BEAKER) (test thev=714) 4.4 meq/L 3.6-5.5 B-TYPE NATRIURETIC FACTOR (BNP)2018-06-29 21:59:00 Test Item Value Reference Range Comments B-TYPE NATRIURETIC PEPTIDE (BEAKER) (test 47377 pg/mL 0-100 tnnx=278) BASIC METABOLIC [id number] 21:31:00 Test Item Value Reference Range Comments SODIUM (BEAKER) (test 140 meq/L 136-145 xyht=883) POTASSIUM (BEAKER) (test 4.6 meq/L 3.5-5.1 szoh=394) CHLORIDE (BEAKER) (test 104 meq/L 98-107 idsl=639) CO2 (BEAKER) (test 25 meq/L 22-29 uhrp=789) BLOOD UREA NITROGEN 33 mg/dL 7-21 (BEAKER) (test vlto=371) CREATININE (BEAKER) (test 1.78 mg/dL 0.57-1.25 vneb=391) GLUCOSE RANDOM (BEAKER) 79 mg/dL 70-105 (test hpgl=871) CALCIUM (BEAKER) (test 9.4 mg/dL 8.4-10.2 ptwg=013) EGFR (BEAKER) (test 34 mL/min/1.73 sq m ESTIMATED GFR IS NOT meyl=1155) ACCURATE CREATININE CLEARANCE IN PREDICTING GLOMERULAR FILTRATION RATE. ESTIMATED GFR IS NOT APPLICABLE FOR DIALYSIS PATIENTS. [id number] 21:18:00 Test Item Value Reference Range Comments PARTIAL THROMBOPLASTIN TIME (BEAKER) (test 36.1 seconds 22.5-36.0 ctam=030) PROTHROMBIN TIME/[id number] 21:17:00 Test Item Value Reference Range Comments PROTIME (BEAKER) (test cish=649) 15.1 seconds 11.7-14.7 INR (BEAKER) (test podd=644) 1.2 <=5.9 RECOMMENDED COUMADIN/WARFARIN INR THERAPY RANGESSTANDARD DOSE: 2.0 - 3.0 Includes: PROPHYLAXIS forvenous thrombosis, systemic embolization; TREATMENT for venous thrombosis and/or pulmonary embolus.HIGH RISK: Target INR is 2.5-3.5 for patients with mechanical heart valves.CBC W/PLT COUNT & AUTO [id number] 21:05:00 Test Item Value Reference Range Comments WHITE BLOOD CELL COUNT (BEAKER) (test vquo=667) 5.3 K/ L 3.5-10.5 RED BLOOD CELL COUNT (BEAKER) (test wqsj=066) 3.43 M/ L 3.93-5.22 HEMOGLOBIN (BEAKER) (test wrdg=903) 10.6 GM/DL 11.2-15.7 HEMATOCRIT (BEAKER) (test utzf=349) 36.3 % 34.1-44.9 MEAN CORPUSCULAR VOLUME (BEAKER) (test lavc=329) 105.8 fL 79.4-94.8 MEAN CORPUSCULAR HEMOGLOBIN (BEAKER) (test 30.9 pg 25.6-32.2 oghj=794) MEAN CORPUSCULAR HEMOGLOBIN CONC (BEAKER) (test 29.2 GM/DL 32.2-35.5 jhda=466) RED CELL DISTRIBUTION WIDTH (BEAKER) (test 17.9 % 11.7-14.4 xedj=586) PLATELET COUNT (BEAKER) (test noix=471) 294 K/CU MM 150-450 MEAN PLATELET VOLUME (BEAKER) (test zzvq=654) 9.4 fL 9.4-12.3 NUCLEATED RED BLOOD CELLS (BEAKER) (test 0 /100 WBC 0-0 zimb=382) NEUTROPHILS RELATIVE PERCENT (BEAKER) (test 75 % povr=004) LYMPHOCYTES RELATIVE PERCENT (BEAKER) (test 12 % lywo=065) MONOCYTES RELATIVE PERCENT (BEAKER) (test 8 % risa=044) EOSINOPHILS RELATIVE PERCENT (BEAKER) (test 4 % cafi=333) BASOPHILS RELATIVE PERCENT (BEAKER) (test 1 % buuz=391) NEUTROPHILS ABSOLUTE COUNT (BEAKER) (test 3.97 K/ L 1.56-6.13 xwfj=445) LYMPHOCYTES ABSOLUTE COUNT (BEAKER) (test 0.64 K/ L 1.18-3.74 idcp=979) MONOCYTES ABSOLUTE COUNT (BEAKER) (test 0.42 K/ L 0.24-0.36 tbwk=069) EOSINOPHILS ABSOLUTE COUNT (BEAKER) (test 0.19 K/ L 0.04-0.36 ufma=408) BASOPHILS ABSOLUTE COUNT (BEAKER) (test 0.05 K/ L 0.01-0.08 hszi=313) IMMATURE GRANULOCYTES-RELATIVE PERCENT (BEAKER) 0 % 0-1 (test stzj=6850) B-TYPE NATRIURETIC FACTOR (BNP)2017-08-18 15:08:00 Test Item Value Reference Range Comments B-TYPE NATRIURETIC PEPTIDE (BEAKER) (test 867 pg/mL 0-100 joqj=190) BASIC METABOLIC [id number] 15:05:00 Test Item Value Reference Range Comments SODIUM (BEAKER) (test 140 meq/L 136-145 iusn=541) POTASSIUM (BEAKER) (test 4.6 meq/L 3.5-5.1 xbzp=284) CHLORIDE (BEAKER) (test 98 meq/L 98-107 lnof=761) CO2 (BEAKER) (test 32 meq/L 22-29 ffhu=364) BLOOD UREA NITROGEN 30 mg/dL 7-21 (BEAKER) (test gxma=391) CREATININE (BEAKER) (test 2.58 mg/dL 0.57-1.25 qzcs=898) GLUCOSE RANDOM (BEAKER) 105 mg/dL 70-105 (test tsju=491) CALCIUM (BEAKER) (test 10.3 mg/dL 8.4-10.2 rlnq=474) EGFR (BEAKER) (test 22 mL/min/1.73 sq m ESTIMATED GFR IS NOT gfzu=2530) ACCURATE CREATININE CLEARANCE IN PREDICTING GLOMERULAR FILTRATION RATE. ESTIMATED GFR IS NOT APPLICABLE FOR DIALYSIS PATIENTS. [id number] 15:02:00 Test Item Value Reference Range Comments MAGNESIUM (BEAKER) (test szku=381) 2.0 mg/dL 1.6-2.6 POCT-GLUCOSE [id number] 12:40:00 Test Item Value Reference Range Comments POC-GLUCOSE METER (BEAKER) 225 mg/dL 70-110 TESTED AT [address] (test thtu=3365) [place] [address] POCT-GLUCOSE [id number] 08:32:00 Test Item Value Reference Range Comments POC-GLUCOSE METER (BEAKER) 148 mg/dL 70-110 TESTED AT [address] (test oawa=7062) [place] [address] BASIC METABOLIC [id number] 05:56:00 Test Item Value Reference Range Comments SODIUM (BEAKER) (test 138 meq/L 136-145 bviw=090) POTASSIUM (BEAKER) (test 4.0 meq/L 3.5-5.1 pudw=244) CHLORIDE (BEAKER) (test 98 meq/L 98-107 yjke=426) CO2 (BEAKER) (test 29 meq/L 22-29 odod=720) BLOOD UREA NITROGEN 14 mg/dL 7-21 (BEAKER) (test sqjc=393) CREATININE (BEAKER) (test 1.85 mg/dL 0.57-1.25 wpve=708) GLUCOSE RANDOM (BEAKER) 116 mg/dL 70-105 (test ctbt=043) CALCIUM (BEAKER) (test 9.9 mg/dL 8.4-10.2 plai=761) EGFR (BEAKER) (test 33 mL/min/1.73 sq m ESTIMATED GFR IS NOT nvxb=1405) ACCURATE CREATININE CLEARANCE IN PREDICTING GLOMERULAR FILTRATION RATE. ESTIMATED GFR IS NOT APPLICABLE FOR DIALYSIS PATIENTS. POCT-GLUCOSE [id number] 21:38:00 Test Item Value Reference Range Comments POC-GLUCOSE METER (BEAKER) 162 mg/dL 70-110 TESTED AT [address] (test rpqf=6835) [facility] [address] POCT-GLUCOSE [id number] 17:02:00 Test Item Value Reference Range Comments POC-GLUCOSE METER (BEAKER) 160 mg/dL 70-110 TESTED AT [address] (test ebrl=8710) [facility] [address] POCT-GLUCOSE [id number] 12:33:00 Test Item Value Reference Range Comments POC-GLUCOSE METER (BEAKER) 163 mg/dL 70-110 TESTED AT [address] (test vkxo=5621) [facility] [address] POCT-GLUCOSE [id number] 10:33:00 Test Item Value Reference Range Comments POC-GLUCOSE METER (BEAKER) 175 mg/dL 70-110 TESTED AT [address] (test yswg=9836) [facility] [address] [id number] 04:51:00 Test Item Value Reference Range Comments MAGNESIUM (BEAKER) (test 2.0 mg/dL 1.6-2.6 Specimen slightly hemolyzed eijt=954) BASIC METABOLIC [id number] 04:51:00 Test Item Value Reference Range Comments SODIUM (BEAKER) (test 139 meq/L 136-145 jlxe=337) POTASSIUM (BEAKER) (test 3.8 meq/L 3.5-5.1 Specimen slightly rnho=244) hemolyzed CHLORIDE (BEAKER) (test 99 meq/L 98-107 ptgb=745) CO2 (BEAKER) (test 27 meq/L 22-29 ohqa=666) BLOOD UREA NITROGEN 14 mg/dL 7-21 (BEAKER) (test npqy=115) CREATININE (BEAKER) (test 1.61 mg/dL 0.57-1.25 Specimen slightly npgf=589) hemolyzed GLUCOSE RANDOM (BEAKER) 139 mg/dL 70-105 (test quwm=571) CALCIUM (BEAKER) (test 10.0 mg/dL 8.4-10.2 xabr=087) EGFR (BEAKER) (test 38 mL/min/1.73 sq m ESTIMATED GFR IS NOT wwoz=0587) ACCURATE CREATININE CLEARANCE IN PREDICTING GLOMERULAR FILTRATION RATE. ESTIMATED GFR IS NOT APPLICABLE FOR DIALYSIS PATIENTS. POCT-GLUCOSE [id number] 21:32:00 Test Item Value Reference Range Comments POC-GLUCOSE METER (BEAKER) 176 mg/dL 70-110 TESTED AT [address] (test vcsy=2869) [facility] [address] POCT-GLUCOSE [id number] 17:22:00 Test Item Value Reference Range Comments POC-GLUCOSE METER (BEAKER) 232 mg/dL 70-110 TESTED AT [address] (test jpfw=7224) [facility] [address] POCT-GLUCOSE [id number] 12:47:00 Test Item Value Reference Range Comments POC-GLUCOSE METER (BEAKER) 162 mg/dL 70-110 TESTED AT [address] (test xqpu=7281) [facility] [address] POCT-GLUCOSE [id number] 08:15:00 Test Item Value Reference Range Comments POC-GLUCOSE METER (BEAKER) 149 mg/dL 70-110 TESTED AT [address] (test vrwq=0358) [facility] [address] [id number] 07:05:00 Test Item Value Reference Range Comments MAGNESIUM (BEAKER) (test xfdf=148) 1.9 mg/dL 1.6-2.6 BASIC METABOLIC [id number] 07:05:00 Test Item Value Reference Range Comments SODIUM (BEAKER) (test 136 meq/L 136-145 kpou=598) POTASSIUM (BEAKER) (test 3.8 meq/L 3.5-5.1 mlbx=446) CHLORIDE (BEAKER) (test 98 meq/L 98-107 nnox=042) CO2 (BEAKER) (test 30 meq/L 22-29 lguk=012) BLOOD UREA NITROGEN 14 mg/dL 7-21 (BEAKER) (test ymqo=136) CREATININE (BEAKER) (test 1.56 mg/dL 0.57-1.25 lxqx=834) GLUCOSE RANDOM (BEAKER) 129 mg/dL 70-105 (test hixp=496) CALCIUM (BEAKER) (test 9.8 mg/dL 8.4-10.2 wtaa=629) EGFR (BEAKER) (test 40 mL/min/1.73 sq m ESTIMATED GFR IS NOT mfud=5670) ACCURATE CREATININE CLEARANCE IN PREDICTING GLOMERULAR FILTRATION RATE. ESTIMATED GFR IS NOT APPLICABLE FOR DIALYSIS PATIENTS. POCT-GLUCOSE [id number] 20:56:00 Test Item Value Reference Range Comments POC-GLUCOSE METER (BEAKER) 112 mg/dL 70-110 TESTED AT [address] (test jnuf=0379) [facility] [address] POCT-GLUCOSE [id number] 17:48:00 Test Item Value Reference Range Comments POC-GLUCOSE METER (BEAKER) 213 mg/dL 70-110 TESTED AT [address] (test tmnj=9864) [facility] [address] POCT-GLUCOSE [id number] 11:40:00 Test Item Value Reference Range Comments POC-GLUCOSE METER (BEAKER) 208 mg/dL 70-110 TESTED AT [address] (test tnkv=3879) [facility] [address] POCT-GLUCOSE [id number] 07:43:00 Test Item Value Reference Range Comments POC-GLUCOSE METER (BEAKER) 144 mg/dL 70-110 TESTED AT [address] (test lptk=7699) [facility] [address] [id number] 04:52:00 Test Item Value Reference Range Comments MAGNESIUM (BEAKER) (test 2.0 mg/dL 1.6-2.6 Specimen slightly hemolyzed dnbl=036) BASIC METABOLIC [id number] 04:52:00 Test Item Value Reference Range Comments SODIUM (BEAKER) (test 133 meq/L 136-145 axat=331) POTASSIUM (BEAKER) (test 4.7 meq/L 3.5-5.1 Specimen slightly gjal=186) hemolyzed CHLORIDE (BEAKER) (test 97 meq/L 98-107 nfkv=605) CO2 (BEAKER) (test 25 meq/L 22-29 osqf=965) BLOOD UREA NITROGEN 17 mg/dL 7-21 (BEAKER) (test uexe=301) CREATININE (BEAKER) (test 1.63 mg/dL 0.57-1.25 Specimen slightly oarn=695) hemolyzed GLUCOSE RANDOM (BEAKER) 141 mg/dL 70-105 (test npwk=066) CALCIUM (BEAKER) (test 9.8 mg/dL 8.4-10.2 bhaw=431) EGFR (BEAKER) (test 38 mL/min/1.73 sq m ESTIMATED GFR IS NOT joop=9615) ACCURATE CREATININE CLEARANCE IN PREDICTING GLOMERULAR FILTRATION RATE. ESTIMATED GFR IS NOT APPLICABLE FOR DIALYSIS PATIENTS. POCT-GLUCOSE [id number] 21:29:00 Test Item Value Reference Range Comments POC-GLUCOSE METER (BEAKER) 198 mg/dL 70-110 TESTED AT [place] [id number] [facility] (test xcxg=5685) [place] [id number] POCT-GLUCOSE [id number] 17:54:00 Test Item Value Reference Range Comments POC-GLUCOSE METER (BEAKER) 176 mg/dL 70-110 TESTED AT [address] (test cfxx=2144) [place] [id number] POCT-GLUCOSE [id number] 07:05:00 Test Item Value Reference Range Comments POC-GLUCOSE METER (BEAKER) 137 mg/dL 70-110 TESTED AT [address] (test wzqk=5811) [place] [address] [id number] 06:53:00 Test Item Value Reference Range Comments MAGNESIUM (BEAKER) (test uuxt=631) 2.0 mg/dL 1.6-2.6 BASIC METABOLIC [id number] 05:37:00 Test Item Value Reference Range Comments SODIUM (BEAKER) (test 136 meq/L 136-145 lxnw=080) POTASSIUM (BEAKER) (test 3.7 meq/L 3.5-5.1 oadn=827) CHLORIDE (BEAKER) (test 97 meq/L 98-107 rhma=669) CO2 (BEAKER) (test 30 meq/L 22-29 niia=778) BLOOD UREA NITROGEN 17 mg/dL 7-21 (BEAKER) (test dexk=471) CREATININE (BEAKER) (test 1.60 mg/dL 0.57-1.25 hclx=591) GLUCOSE RANDOM (BEAKER) 116 mg/dL 70-105 (test qgml=432) CALCIUM (BEAKER) (test 9.4 mg/dL 8.4-10.2 infu=536) EGFR (BEAKER) (test 39 mL/min/1.73 sq m ESTIMATED GFR IS NOT wamp=2534) ACCURATE CREATININE CLEARANCE IN PREDICTING GLOMERULAR FILTRATION RATE. ESTIMATED GFR IS NOT APPLICABLE FOR DIALYSIS PATIENTS. CBC W/PLT COUNT & AUTO [id number] 05:02:00 Test Item Value Reference Range Comments WHITE BLOOD CELL COUNT (BEAKER) (test shwp=706) 8.7 K/ L 3.5-10.5 RED BLOOD CELL COUNT (BEAKER) (test kcja=652) 2.43 M/ L 3.93-5.22 HEMOGLOBIN (BEAKER) (test fqcg=113) 7.5 GM/DL 11.2-15.7 HEMATOCRIT (BEAKER) (test qqzq=826) 24.1 % 34.1-44.9 MEAN CORPUSCULAR VOLUME (BEAKER) (test nxtb=823) 99.2 fL 79.4-94.8 MEAN CORPUSCULAR HEMOGLOBIN (BEAKER) (test 30.9 pg 25.6-32.2 hngw=621) MEAN CORPUSCULAR HEMOGLOBIN CONC (BEAKER) (test 31.1 GM/DL 32.2-35.5 riei=870) RED CELL DISTRIBUTION WIDTH (BEAKER) (test 15.8 % 11.7-14.4 xjko=313) PLATELET COUNT (BEAKER) (test hdkr=036) 586 K/CU MM 150-450 MEAN PLATELET VOLUME (BEAKER) (test uhoo=769) 9.5 fL 9.4-12.3 NUCLEATED RED BLOOD CELLS (BEAKER) (test 0 /100 WBC 0-0 vwnj=353) NEUTROPHILS RELATIVE PERCENT (BEAKER) (test 74 % zbok=493) LYMPHOCYTES RELATIVE PERCENT (BEAKER) (test 15 % cmwl=120) MONOCYTES RELATIVE PERCENT (BEAKER) (test 8 % quyr=148) EOSINOPHILS RELATIVE PERCENT (BEAKER) (test 2 % whsb=882) BASOPHILS RELATIVE PERCENT (BEAKER) (test 1 % hcor=565) NEUTROPHILS ABSOLUTE COUNT (BEAKER) (test 6.41 K/ L 1.56-6.13 evsc=429) LYMPHOCYTES ABSOLUTE COUNT (BEAKER) (test 1.32 K/ L 1.18-3.74 htlj=923) MONOCYTES ABSOLUTE COUNT (BEAKER) (test 0.65 K/ L 0.24-0.36 wgqf=613) EOSINOPHILS ABSOLUTE COUNT (BEAKER) (test 0.20 K/ L 0.04-0.36 ggka=003) BASOPHILS ABSOLUTE COUNT (BEAKER) (test 0.08 K/ L 0.01-0.08 befu=780) IMMATURE GRANULOCYTES-RELATIVE PERCENT (BEAKER) 0 % 0-1 (test nbpt=4617) POCT-GLUCOSE [id number] 21:28:00 Test Item Value Reference Range Comments POC-GLUCOSE METER (BEAKER) 216 mg/dL 70-110 TESTED AT [place] [id number] [facility] (test rczd=7136) [facility] [address] POCT-GLUCOSE [id number] 18:25:00 Test Item Value Reference Range Comments POC-GLUCOSE METER (BEAKER) 182 mg/dL 70-110 TESTED AT [address] (test uufb=4634) [facility] [address] POCT-GLUCOSE [id number] 09:37:00 Test Item Value Reference Range Comments POC-GLUCOSE METER (BEAKER) 155 mg/dL 70-110 TESTED AT [address] (test pvgt=8236) [facility] [address] CALCIUM, [id number] 07:37:00 Test Item Value Reference Range Comments CALCIUM IONIZED (BEAKER) (test kvvx=911) 1.11 mmol/L 1.12-1.27 PH, BLOOD (BEAKER) (test oqit=1978) 7.39 [id number] 07:10:00 Test Item Value Reference Range Comments FERRITIN (BEAKER) (test vznq=298) 445 ng/mL 5-275 IRON, TIBC, % SAT. (WITHOUT FERRITIN)2017-08-04 07:04:00 Test Item Value Reference Range Comments IRON (BEAKER) (test bhuu=770) 55 ug/dL 40-160 TOTAL IRON BINDING CAPACITY (BEAKER) (test 198 ug/dL 250-450 ammj=654) IRON % SATURATION (2) (BEAKER) (test xxrm=1689) 28 % 20-55 [id number] 06:57:00 Test Item Value Reference Range Comments PHOSPHORUS (BEAKER) (test xvbl=594) 4.3 mg/dL 2.3-4.7 [id number] 06:57:00 Test Item Value Reference Range Comments MAGNESIUM (BEAKER) (test omsg=360) 2.1 mg/dL 1.6-2.6 BASIC METABOLIC [id number] 06:57:00 Test Item Value Reference Range Comments SODIUM (BEAKER) (test 138 meq/L 136-145 ljkg=313) POTASSIUM (BEAKER) (test 3.8 meq/L 3.5-5.1 tope=305) CHLORIDE (BEAKER) (test 99 meq/L 98-107 kkos=047) CO2 (BEAKER) (test 29 meq/L 22-29 fysq=125) BLOOD UREA NITROGEN 18 mg/dL 7-21 (BEAKER) (test slqw=706) CREATININE (BEAKER) (test 1.75 mg/dL 0.57-1.25 qzby=719) GLUCOSE RANDOM (BEAKER) 138 mg/dL 70-105 (test wduu=769) CALCIUM (BEAKER) (test 9.7 mg/dL 8.4-10.2 akvb=032) EGFR (BEAKER) (test 35 mL/min/1.73 sq m ESTIMATED GFR IS NOT kdwr=8922) ACCURATE CREATININE CLEARANCE IN PREDICTING GLOMERULAR FILTRATION RATE. ESTIMATED GFR IS NOT APPLICABLE FOR DIALYSIS PATIENTS. B-TYPE NATRIURETIC FACTOR (BNP)2017-08-04 06:54:00 Test Item Value Reference Range Comments B-TYPE NATRIURETIC PEPTIDE (BEAKER) (test 778 pg/mL 0-100 zfvv=494) RETICULOCYTE [id number] 06:39:00 Test Item Value Reference Range Comments RETICULOCYTE COUNT PCT (BEAKER) (test kwoo=925) 8.3 % 0.5-1.7 CBC W/PLT COUNT & AUTO [id number] 06:39:00 Test Item Value Reference Range Comments WHITE BLOOD CELL COUNT (BEAKER) (test hgtz=417) 9.0 K/ L 3.5-10.5 RED BLOOD CELL COUNT (BEAKER) (test xqik=176) 2.55 M/ L 3.93-5.22 HEMOGLOBIN (BEAKER) (test wgjt=739) 7.8 GM/DL 11.2-15.7 HEMATOCRIT (BEAKER) (test qtjw=606) 25.4 % 34.1-44.9 MEAN CORPUSCULAR VOLUME (BEAKER) (test wysa=628) 99.6 fL 79.4-94.8 MEAN CORPUSCULAR HEMOGLOBIN (BEAKER) (test 30.6 pg 25.6-32.2 mxwc=955) MEAN CORPUSCULAR HEMOGLOBIN CONC (BEAKER) (test 30.7 GM/DL 32.2-35.5 rblr=222) RED CELL DISTRIBUTION WIDTH (BEAKER) (test 15.9 % 11.7-14.4 hktr=492) PLATELET COUNT (BEAKER) (test mprc=330) 591 K/CU MM 150-450 MEAN PLATELET VOLUME (BEAKER) (test oyyt=231) 9.5 fL 9.4-12.3 NUCLEATED RED BLOOD CELLS (BEAKER) (test 0 /100 WBC 0-0 xsdu=316) NEUTROPHILS RELATIVE PERCENT (BEAKER) (test 77 % ahfx=301) LYMPHOCYTES RELATIVE PERCENT (BEAKER) (test 13 % wxcb=175) MONOCYTES RELATIVE PERCENT (BEAKER) (test 7 % tvia=425) EOSINOPHILS RELATIVE PERCENT (BEAKER) (test 2 % bqbr=164) BASOPHILS RELATIVE PERCENT (BEAKER) (test 1 % isbm=850) NEUTROPHILS ABSOLUTE COUNT (BEAKER) (test 6.97 K/ L 1.56-6.13 mxor=876) LYMPHOCYTES ABSOLUTE COUNT (BEAKER) (test 1.13 K/ L 1.18-3.74 jquz=534) MONOCYTES ABSOLUTE COUNT (BEAKER) (test 0.65 K/ L 0.24-0.36 dtau=241) EOSINOPHILS ABSOLUTE COUNT (BEAKER) (test 0.18 K/ L 0.04-0.36 oxiz=838) BASOPHILS ABSOLUTE COUNT (BEAKER) (test 0.07 K/ L 0.01-0.08 qfic=780) IMMATURE GRANULOCYTES-RELATIVE PERCENT (BEAKER) 0 % 0-1 (test ytpt=4693) POCT-GLUCOSE [id number] 20:56:00 Test Item Value Reference Range Comments POC-GLUCOSE METER (BEAKER) 167 mg/dL 70-110 TESTED AT [address] (test yrab=6735) [facility] [address] POCT-GLUCOSE [id number] 16:36:00 Test Item Value Reference Range Comments POC-GLUCOSE METER (BEAKER) 200 mg/dL 70-110 TESTED AT [address] (test emid=0400) [facility] [address] POCT-GLUCOSE [id number] 12:59:00 Test Item Value Reference Range Comments POC-GLUCOSE METER (BEAKER) 202 mg/dL 70-110 TESTED AT [address] (test ailg=9243) [place] [id number] POCT-GLUCOSE [id number] 07:37:00 Test Item Value Reference Range Comments POC-GLUCOSE METER (BEAKER) 154 mg/dL 70-110 TESTED AT [facility] [address] (test ztau=9509) [place] [address] CBC W/PLT COUNT & AUTO [id number] 06:49:00 Test Item Value Reference Range Comments WHITE BLOOD CELL COUNT (BEAKER) (test rwgo=633) 9.8 K/ L 3.5-10.5 RED BLOOD CELL COUNT (BEAKER) (test gzsa=037) 2.62 M/ L 3.93-5.22 HEMOGLOBIN (BEAKER) (test fnra=403) 8.1 GM/DL 11.2-15.7 HEMATOCRIT (BEAKER) (test aden=427) 25.9 % 34.1-44.9 MEAN CORPUSCULAR VOLUME (BEAKER) (test uvds=799) 98.9 fL 79.4-94.8 MEAN CORPUSCULAR HEMOGLOBIN (BEAKER) (test 30.9 pg 25.6-32.2 xvfr=449) MEAN CORPUSCULAR HEMOGLOBIN CONC (BEAKER) (test 31.3 GM/DL 32.2-35.5 ghat=731) RED CELL DISTRIBUTION WIDTH (BEAKER) (test 15.8 % 11.7-14.4 rtmf=138) PLATELET COUNT (BEAKER) (test zgxv=889) 667 K/CU MM 150-450 MEAN PLATELET VOLUME (BEAKER) (test wezm=238) 9.4 fL 9.4-12.3 NUCLEATED RED BLOOD CELLS (BEAKER) (test 0 /100 WBC 0-0 pspx=076) NEUTROPHILS RELATIVE PERCENT (BEAKER) (test 77 % fccf=665) LYMPHOCYTES RELATIVE PERCENT (BEAKER) (test 13 % qnpf=163) MONOCYTES RELATIVE PERCENT (BEAKER) (test 7 % hqgo=870) EOSINOPHILS RELATIVE PERCENT (BEAKER) (test 2 % kjrs=228) BASOPHILS RELATIVE PERCENT (BEAKER) (test 1 % rdlj=272) NEUTROPHILS ABSOLUTE COUNT (BEAKER) (test 7.57 K/ L 1.56-6.13 lpkv=188) LYMPHOCYTES ABSOLUTE COUNT (BEAKER) (test 1.23 K/ L 1.18-3.74 bjoa=026) MONOCYTES ABSOLUTE COUNT (BEAKER) (test 0.69 K/ L 0.24-0.36 ygac=383) EOSINOPHILS ABSOLUTE COUNT (BEAKER) (test 0.16 K/ L 0.04-0.36 sfjl=614) BASOPHILS ABSOLUTE COUNT (BEAKER) (test 0.08 K/ L 0.01-0.08 iqkg=561) IMMATURE GRANULOCYTES-RELATIVE PERCENT (BEAKER) 1 % 0-1 (test apbq=4529) CALCIUM, [id number] 06:38:00 Test Item Value Reference Range Comments CALCIUM IONIZED (BEAKER) (test higo=703) 1.07 mmol/L 1.12-1.27 PH, BLOOD (BEAKER) (test fjju=6514) 7.42 [id number] 06:08:00 Test Item Value Reference Range Comments PHOSPHORUS (BEAKER) (test flyp=677) 4.3 mg/dL 2.3-4.7 [id number] 06:08:00 Test Item Value Reference Range Comments MAGNESIUM (BEAKER) (test wjdg=228) 2.4 mg/dL 1.6-2.6 BASIC METABOLIC [id number] 06:08:00 Test Item Value Reference Range Comments SODIUM (BEAKER) (test 138 meq/L 136-145 aqgs=619) POTASSIUM (BEAKER) (test 4.0 meq/L 3.5-5.1 uusb=794) CHLORIDE (BEAKER) (test 99 meq/L 98-107 ongb=570) CO2 (BEAKER) (test 29 meq/L 22-29 oyro=435) BLOOD UREA NITROGEN 15 mg/dL 7-21 (BEAKER) (test jwzm=195) CREATININE (BEAKER) (test 1.64 mg/dL 0.57-1.25 iuqb=356) GLUCOSE RANDOM (BEAKER) 135 mg/dL 70-105 (test ufci=937) CALCIUM (BEAKER) (test 9.5 mg/dL 8.4-10.2 rmbu=070) EGFR (BEAKER) (test 38 mL/min/1.73 sq m ESTIMATED GFR IS NOT fmqs=0622) ACCURATE CREATININE CLEARANCE IN PREDICTING GLOMERULAR FILTRATION RATE. ESTIMATED GFR IS NOT APPLICABLE FOR DIALYSIS PATIENTS. POCT-GLUCOSE [id number] 21:13:00 Test Item Value Reference Range Comments POC-GLUCOSE METER (BEAKER) 145 mg/dL 70-110 TESTED AT [address] (test idxg=3959) [facility] [address] POCT-GLUCOSE [id number] 17:08:00 Test Item Value Reference Range Comments POC-GLUCOSE METER (BEAKER) 134 mg/dL 70-110 TESTED AT [place] [id number] [facility] (test icva=3513) [facility] [address] POCT-GLUCOSE [id number] 11:44:00 Test Item Value Reference Range Comments POC-GLUCOSE METER (BEAKER) 159 mg/dL 70-110 TESTED AT [address] (test ugqe=0679) [facility] [address] POCT-GLUCOSE [id number] 08:07:00 Test Item Value Reference Range Comments POC-GLUCOSE METER (BEAKER) 152 mg/dL 70-110 TESTED AT [address] (test tbvb=2182) [facility] [address] CALCIUM, [id number] 05:26:00 Test Item Value Reference Range Comments CALCIUM IONIZED (BEAKER) (test jlre=946) 1.10 mmol/L 1.12-1.27 PH, BLOOD (BEAKER) (test zoaz=0509) 7.42 [id number] 05:05:00 Test Item Value Reference Range Comments PHOSPHORUS (BEAKER) (test lias=968) 4.6 mg/dL 2.3-4.7 [id number] 05:05:00 Test Item Value Reference Range Comments MAGNESIUM (BEAKER) (test mhao=659) 1.6 mg/dL 1.6-2.6 COMPREHENSIVE METABOLIC [id number] 05:05:00 Test Item Value Reference Range Comments TOTAL PROTEIN (BEAKER) 6.9 gm/dL 6.0-8.3 (test fxtg=350) ALBUMIN (BEAKER) (test 3.2 g/dL 3.5-5.0 tfbg=4606) ALKALINE PHOSPHATASE 55 U/L 40-150 (BEAKER) (test vgac=247) BILIRUBIN TOTAL (BEAKER) 0.6 mg/dL 0.2-1.2 (test iryz=378) SODIUM (BEAKER) (test 139 meq/L 136-145 unjs=207) POTASSIUM (BEAKER) (test 3.9 meq/L 3.5-5.1 vvia=197) CHLORIDE (BEAKER) (test 100 meq/L 98-107 npwd=787) CO2 (BEAKER) (test 27 meq/L 22-29 pwoe=477) BLOOD UREA NITROGEN 15 mg/dL 7-21 (BEAKER) (test thkv=089) CREATININE (BEAKER) (test 1.55 mg/dL 0.57-1.25 dwyz=323) GLUCOSE RANDOM (BEAKER) 125 mg/dL 70-105 (test xcha=474) CALCIUM (BEAKER) (test 9.2 mg/dL 8.4-10.2 doxf=368) AST (SGOT) (BEAKER) (test 16 U/L 5-34 vcxb=128) ALT (SGPT) (BEAKER) (test 11 U/L 6-55 pysk=997) EGFR (BEAKER) (test 40 mL/min/1.73 sq m ESTIMATED GFR IS NOT subp=7461) ACCURATE CREATININE CLEARANCE IN PREDICTING GLOMERULAR FILTRATION RATE. ESTIMATED GFR IS NOT APPLICABLE FOR DIALYSIS PATIENTS. CBC W/PLT COUNT & AUTO [id number] 04:57:00 Test Item Value Reference Range Comments WHITE BLOOD CELL COUNT (BEAKER) (test qoqh=398) 10.8 K/ L 3.5-10.5 RED BLOOD CELL COUNT (BEAKER) (test ncjw=682) 2.57 M/ L 3.93-5.22 HEMOGLOBIN (BEAKER) (test gayk=703) 7.9 GM/DL 11.2-15.7 HEMATOCRIT (BEAKER) (test klne=291) 25.2 % 34.1-44.9 MEAN CORPUSCULAR VOLUME (BEAKER) (test hyxg=808) 98.1 fL 79.4-94.8 MEAN CORPUSCULAR HEMOGLOBIN (BEAKER) (test 30.7 pg 25.6-32.2 jobc=214) MEAN CORPUSCULAR HEMOGLOBIN CONC (BEAKER) (test 31.3 GM/DL 32.2-35.5 csff=478) RED CELL DISTRIBUTION WIDTH (BEAKER) (test 15.9 % 11.7-14.4 yopa=846) PLATELET COUNT (BEAKER) (test kbex=979) 623 K/CU MM 150-450 MEAN PLATELET VOLUME (BEAKER) (test ooiv=493) 9.4 fL 9.4-12.3 NUCLEATED RED BLOOD CELLS (BEAKER) (test 0 /100 WBC 0-0 oqoz=519) NEUTROPHILS RELATIVE PERCENT (BEAKER) (test 79 % asfj=620) LYMPHOCYTES RELATIVE PERCENT (BEAKER) (test 12 % wiqy=462) MONOCYTES RELATIVE PERCENT (BEAKER) (test 7 % gvcl=628) EOSINOPHILS RELATIVE PERCENT (BEAKER) (test 2 % vfld=844) BASOPHILS RELATIVE PERCENT (BEAKER) (test 1 % qpkz=164) NEUTROPHILS ABSOLUTE COUNT (BEAKER) (test 8.49 K/ L 1.56-6.13 uezg=486) LYMPHOCYTES ABSOLUTE COUNT (BEAKER) (test 1.28 K/ L 1.18-3.74 veuc=592) MONOCYTES ABSOLUTE COUNT (BEAKER) (test 0.74 K/ L 0.24-0.36 ekyn=350) EOSINOPHILS ABSOLUTE COUNT (BEAKER) (test 0.18 K/ L 0.04-0.36 nsie=499) BASOPHILS ABSOLUTE COUNT (BEAKER) (test 0.05 K/ L 0.01-0.08 ngtr=087) IMMATURE GRANULOCYTES-RELATIVE PERCENT (BEAKER) 1 % 0-1 (test gnaw=1763) POCT-GLUCOSE [id number] 01:29:00 Test Item Value Reference Range Comments POC-GLUCOSE METER (BEAKER) 182 mg/dL 70-110 TESTED AT [address] (test sbro=6207) [place] [id number] POCT-GLUCOSE [id number] 22:32:00 Test Item Value Reference Range Comments POC-GLUCOSE METER (BEAKER) 204 mg/dL 70-110 TESTED AT [address] (test wegt=8581) [place] [id number] POCT-GLUCOSE [id number] 18:53:00 Test Item Value Reference Range Comments POC-GLUCOSE METER (BEAKER) 154 mg/dL 70-110 TESTED AT [address] (test lokk=5698) [place] [id number] POCT-GLUCOSE [id number] 15:50:00 Test Item Value Reference Range Comments POC-GLUCOSE METER (BEAKER) 172 mg/dL 70-110 TESTED AT [address] (test uqke=5211) [place] [id number] B-TYPE NATRIURETIC FACTOR (BNP)2017-08-01 15:41:00 Test Item Value Reference Range Comments B-TYPE NATRIURETIC PEPTIDE (BEAKER) (test 1253 pg/mL 0-100 ehng=182) ENEDINA CHEST, 1 VIEW, NON [id number] 15:00:00Reason for exam:->SOBShould this be performed at the bedside?->YesFINAL REPORT Chest one view compared to July 28, 2017 Discussion: There is cardiac prominence. Lungs are grossly clear. No effusion or pneumothorax. There is either hiatal hernia or aortic tortuosity. IMPRESSIONS: No significant change. Signed: Tony Hsueport Verified Date/Time: 08/01/2017 15:00:05 Reading Location: [facility] [id number] Consult Reading Room Electronicallysigned by: TONY HSU M.D. on 08/01/2017 03:00 PMPOCT-GLUCOSE [id number] 09:28:00 Test Item Value Reference Range Comments POC-GLUCOSE METER (BEAKER) 155 mg/dL 70-110 TESTED AT [facility] [address] [facility] (test ksap=0633) [facility] [address] BASIC METABOLIC [id number] 08:00:00 Test Item Value Reference Range Comments SODIUM (BEAKER) (test 138 meq/L 136-145 fxxe=386) POTASSIUM (BEAKER) (test 3.8 meq/L 3.5-5.1 grny=391) CHLORIDE (BEAKER) (test 100 meq/L 98-107 aksu=388) CO2 (BEAKER) (test 27 meq/L 22-29 qevs=541) BLOOD UREA NITROGEN 14 mg/dL 7-21 (BEAKER) (test nkhx=610) CREATININE (BEAKER) (test 1.47 mg/dL 0.57-1.25 sfkg=178) GLUCOSE RANDOM (BEAKER) 150 mg/dL 70-105 (test nlcc=391) CALCIUM (BEAKER) (test 9.0 mg/dL 8.4-10.2 nhsa=086) EGFR (BEAKER) (test 43 mL/min/1.73 sq m ESTIMATED GFR IS NOT mffs=6118) ACCURATE CREATININE CLEARANCE IN PREDICTING GLOMERULAR FILTRATION RATE. ESTIMATED GFR IS NOT APPLICABLE FOR DIALYSIS PATIENTS. CBC W/PLT COUNT & AUTO [id number] 07:54:00 Test Item Value Reference Range Comments WHITE BLOOD CELL COUNT (BEAKER) (test ejcr=768) 12.4 K/ L 3.5-10.5 RED BLOOD CELL COUNT (BEAKER) (test ajdf=683) 2.57 M/ L 3.93-5.22 HEMOGLOBIN (BEAKER) (test xxmp=702) 7.7 GM/DL 11.2-15.7 HEMATOCRIT (BEAKER) (test ktmk=286) 25.0 % 34.1-44.9 MEAN CORPUSCULAR VOLUME (BEAKER) (test fvzh=706) 97.3 fL 79.4-94.8 MEAN CORPUSCULAR HEMOGLOBIN (BEAKER) (test 30.0 pg 25.6-32.2 ucmn=438) MEAN CORPUSCULAR HEMOGLOBIN CONC (BEAKER) (test 30.8 GM/DL 32.2-35.5 hdwj=448) RED CELL DISTRIBUTION WIDTH (BEAKER) (test 15.8 % 11.7-14.4 osdx=400) PLATELET COUNT (BEAKER) (test pxhy=941) 582 K/CU MM 150-450 MEAN PLATELET VOLUME (BEAKER) (test phys=837) 9.5 fL 9.4-12.3 NUCLEATED RED BLOOD CELLS (BEAKER) (test 0 /100 WBC 0-0 rahc=668) NEUTROPHILS RELATIVE PERCENT (BEAKER) (test 82 % peya=669) LYMPHOCYTES RELATIVE PERCENT (BEAKER) (test 10 % qcqv=981) MONOCYTES RELATIVE PERCENT (BEAKER) (test 6 % piwp=188) EOSINOPHILS RELATIVE PERCENT (BEAKER) (test 1 % uanq=770) BASOPHILS RELATIVE PERCENT (BEAKER) (test 1 % kxwy=526) NEUTROPHILS ABSOLUTE COUNT (BEAKER) (test 10.08 K/ L 1.56-6.13 empg=705) LYMPHOCYTES ABSOLUTE COUNT (BEAKER) (test 1.19 K/ L 1.18-3.74 zqly=854) MONOCYTES ABSOLUTE COUNT (BEAKER) (test 0.74 K/ L 0.24-0.36 ehfv=687) EOSINOPHILS ABSOLUTE COUNT (BEAKER) (test 0.16 K/ L 0.04-0.36 boxi=223) BASOPHILS ABSOLUTE COUNT (BEAKER) (test 0.10 K/ L 0.01-0.08 eevw=600) IMMATURE GRANULOCYTES-RELATIVE PERCENT (BEAKER) 1 % 0-1 (test vnuo=5230) POCT-GLUCOSE [id number] 21:34:00 Test Item Value Reference Range Comments POC-GLUCOSE METER (BEAKER) 153 mg/dL 70-110 TESTED AT [address] (test vixp=0445) [facility] [address] POCT-GLUCOSE [id number] 17:34:00 Test Item Value Reference Range Comments POC-GLUCOSE METER (BEAKER) 165 mg/dL 70-110 TESTED AT [address] (test lllp=4337) [facility] [address] POCT-GLUCOSE [id number] 14:33:00 Test Item Value Reference Range Comments POC-GLUCOSE METER (BEAKER) 208 mg/dL 70-110 TESTED AT [address] (test riwo=2975) [place] [address] POCT-GLUCOSE [id number] 12:54:00 Test Item Value Reference Range Comments POC-GLUCOSE METER (BEAKER) 218 mg/dL 70-110 TESTED AT [address] (test ipbq=9182) [place] [address] POCT-GLUCOSE [id number] 10:34:00 Test Item Value Reference Range Comments POC-GLUCOSE METER (BEAKER) 204 mg/dL 70-110 TESTED AT [address] (test ciij=8766) [place] [address] POCT-GLUCOSE [id number] 08:41:00 Test Item Value Reference Range Comments POC-GLUCOSE METER (BEAKER) 201 mg/dL 70-110 TESTED AT [address] (test hlnh=2114) [place] [address] [id number] 05:54:00 Test Item Value Reference Range Comments MAGNESIUM (BEAKER) (test dqcd=234) 1.8 mg/dL 1.6-2.6 BASIC METABOLIC [id number] 05:54:00 Test Item Value Reference Range Comments SODIUM (BEAKER) (test 138 meq/L 136-145 rqkq=063) POTASSIUM (BEAKER) (test 3.6 meq/L 3.5-5.1 afhu=270) CHLORIDE (BEAKER) (test 100 meq/L 98-107 drwl=744) CO2 (BEAKER) (test 25 meq/L 22-29 jvqb=450) BLOOD UREA NITROGEN 14 mg/dL 7-21 (BEAKER) (test wfvp=749) CREATININE (BEAKER) (test 1.42 mg/dL 0.57-1.25 xgiv=542) GLUCOSE RANDOM (BEAKER) 145 mg/dL 70-105 (test eehq=731) CALCIUM (BEAKER) (test 9.4 mg/dL 8.4-10.2 bmif=273) EGFR (BEAKER) (test 44 mL/min/1.73 sq m ESTIMATED GFR IS NOT xnza=7570) ACCURATE CREATININE CLEARANCE IN PREDICTING GLOMERULAR FILTRATION RATE. ESTIMATED GFR IS NOT APPLICABLE FOR DIALYSIS PATIENTS. CBC (HEMOGRAM ONLY)2017-07-31 05:42:00 Test Item Value Reference Range Comments WHITE BLOOD CELL COUNT (BEAKER) (test stpt=284) 13.3 K/ L 3.5-10.5 RED BLOOD CELL COUNT (BEAKER) (test gzfz=495) 2.65 M/ L 3.93-5.22 HEMOGLOBIN (BEAKER) (test hgzx=099) 7.9 GM/DL 11.2-15.7 HEMATOCRIT (BEAKER) (test uhpz=247) 25.9 % 34.1-44.9 MEAN CORPUSCULAR VOLUME (BEAKER) (test mkph=746) 97.7 fL 79.4-94.8 MEAN CORPUSCULAR HEMOGLOBIN (BEAKER) (test 29.8 pg 25.6-32.2 pfre=697) MEAN CORPUSCULAR HEMOGLOBIN CONC (BEAKER) (test 30.5 GM/DL 32.2-35.5 poop=427) RED CELL DISTRIBUTION WIDTH (BEAKER) (test 15.3 % 11.7-14.4 qkja=739) PLATELET COUNT (BEAKER) (test dmzp=247) 580 K/CU MM 150-450 MEAN PLATELET VOLUME (BEAKER) (test uivr=226) 9.7 fL 9.4-12.3 NUCLEATED RED BLOOD CELLS (BEAKER) (test 0 /100 WBC 0-0 jsam=354) POCT-GLUCOSE [id number] 21:21:00 Test Item Value Reference Range Comments POC-GLUCOSE METER (BEAKER) 206 mg/dL 70-110 TESTED AT [facility] [address] [facility] (test jqbv=0650) [facility] [address] POCT-GLUCOSE [id number] 17:50:00 Test Item Value Reference Range Comments POC-GLUCOSE METER (BEAKER) 160 mg/dL 70-110 TESTED AT [facility] [address] [facility] (test aear=7765) [facility] [address] POCT-GLUCOSE [id number] 12:12:00 Test Item Value Reference Range Comments POC-GLUCOSE METER (BEAKER) 214 mg/dL 70-110 TESTED AT [address] (test anid=4635) [facility] [address] POCT-GLUCOSE [id number] 07:59:00 Test Item Value Reference Range Comments POC-GLUCOSE METER (BEAKER) 146 mg/dL 70-110 TESTED AT [address] (test oene=8316) [facility] [address] CALCIUM, [id number] 07:23:00 Test Item Value Reference Range Comments CALCIUM IONIZED (BEAKER) (test dgvf=684) 1.11 mmol/L 1.12-1.27 PH, BLOOD (BEAKER) (test fluj=1628) 7.42 [id number] 07:07:00 Test Item Value Reference Range Comments PHOSPHORUS (BEAKER) (test skwq=835) 3.5 mg/dL 2.3-4.7 [id number] 07:07:00 Test Item Value Reference Range Comments MAGNESIUM (BEAKER) (test msbh=518) 1.8 mg/dL 1.6-2.6 COMPREHENSIVE METABOLIC [id number] 07:07:00 Test Item Value Reference Range Comments TOTAL PROTEIN (BEAKER) 6.7 gm/dL 6.0-8.3 (test ewdf=923) ALBUMIN (BEAKER) (test 3.1 g/dL 3.5-5.0 picf=1325) ALKALINE PHOSPHATASE 53 U/L 40-150 (BEAKER) (test pzdl=469) BILIRUBIN TOTAL (BEAKER) 0.6 mg/dL 0.2-1.2 (test owbv=752) SODIUM (BEAKER) (test 139 meq/L 136-145 hkgl=514) POTASSIUM (BEAKER) (test 4.0 meq/L 3.5-5.1 ixgz=669) CHLORIDE (BEAKER) (test 103 meq/L 98-107 wauf=743) CO2 (BEAKER) (test 27 meq/L 22-29 vmwe=494) BLOOD UREA NITROGEN 16 mg/dL 7-21 (BEAKER) (test eyhb=840) CREATININE (BEAKER) (test 1.34 mg/dL 0.57-1.25 sgwa=141) GLUCOSE RANDOM (BEAKER) 116 mg/dL 70-105 (test zdat=773) CALCIUM (BEAKER) (test 9.2 mg/dL 8.4-10.2 sisc=880) AST (SGOT) (BEAKER) (test 15 U/L 5-34 egur=896) ALT (SGPT) (BEAKER) (test 11 U/L 6-55 hczr=654) EGFR (BEAKER) (test 47 mL/min/1.73 sq m ESTIMATED GFR IS NOT syjj=1150) ACCURATE CREATININE CLEARANCE IN PREDICTING GLOMERULAR FILTRATION RATE. ESTIMATED GFR IS NOT APPLICABLE FOR DIALYSIS PATIENTS. CBC W/PLT COUNT & AUTO [id number] 06:52:00 Test Item Value Reference Range Comments WHITE BLOOD CELL COUNT (BEAKER) (test olyt=180) 12.8 K/ L 3.5-10.5 RED BLOOD CELL COUNT (BEAKER) (test ecev=186) 2.43 M/ L 3.93-5.22 HEMOGLOBIN (BEAKER) (test kdcm=786) 7.2 GM/DL 11.2-15.7 HEMATOCRIT (BEAKER) (test yrwo=806) 23.8 % 34.1-44.9 MEAN CORPUSCULAR VOLUME (BEAKER) (test xjti=616) 97.9 fL 79.4-94.8 MEAN CORPUSCULAR HEMOGLOBIN (BEAKER) (test 29.6 pg 25.6-32.2 nczq=446) MEAN CORPUSCULAR HEMOGLOBIN CONC (BEAKER) (test 30.3 GM/DL 32.2-35.5 znaj=774) RED CELL DISTRIBUTION WIDTH (BEAKER) (test 15.0 % 11.7-14.4 yzvo=915) PLATELET COUNT (BEAKER) (test ftgy=313) 456 K/CU MM 150-450 MEAN PLATELET VOLUME (BEAKER) (test veim=359) 10.3 fL 9.4-12.3 NUCLEATED RED BLOOD CELLS (BEAKER) (test 0 /100 WBC 0-0 nsqs=841) NEUTROPHILS RELATIVE PERCENT (BEAKER) (test 82 % rpvj=552) LYMPHOCYTES RELATIVE PERCENT (BEAKER) (test 9 % pmet=121) MONOCYTES RELATIVE PERCENT (BEAKER) (test 6 % puxq=739) EOSINOPHILS RELATIVE PERCENT (BEAKER) (test 2 % feli=465) BASOPHILS RELATIVE PERCENT (BEAKER) (test 0 % nelx=618) NEUTROPHILS ABSOLUTE COUNT (BEAKER) (test 10.52 K/ L 1.56-6.13 fark=586) LYMPHOCYTES ABSOLUTE COUNT (BEAKER) (test 1.19 K/ L 1.18-3.74 ylxf=443) MONOCYTES ABSOLUTE COUNT (BEAKER) (test 0.73 K/ L 0.24-0.36 nkjs=867) EOSINOPHILS ABSOLUTE COUNT (BEAKER) (test 0.22 K/ L 0.04-0.36 pcyb=506) BASOPHILS ABSOLUTE COUNT (BEAKER) (test 0.04 K/ L 0.01-0.08 awap=350) IMMATURE GRANULOCYTES-RELATIVE PERCENT (BEAKER) 1 % 0-1 (test bgyl=1762) POCT-GLUCOSE [id number] 21:47:00 Test Item Value Reference Range Comments POC-GLUCOSE METER (BEAKER) 106 mg/dL 70-110 TESTED AT [address] (test qmat=0107) [place] [address] POCT-GLUCOSE [id number] 18:50:00 Test Item Value Reference Range Comments POC-GLUCOSE METER (BEAKER) 175 mg/dL 70-110 TESTED AT [address] (test ywgq=7338) [place] [address] [id number] 15:18:00 Test Item Value Reference Range Comments POTASSIUM (BEAKER) (test aktl=382) 3.7 meq/L 3.5-5.1 [id number] 15:18:00 Test Item Value Reference Range Comments MAGNESIUM (BEAKER) (test qevw=868) 2.2 mg/dL 1.6-2.6 POCT-GLUCOSE [id number] 11:48:00 Test Item Value Reference Range Comments POC-GLUCOSE METER (BEAKER) 131 mg/dL 70-110 TESTED AT [address] (test kalo=4747) [place] [address] BLOOD GAS, [id number] 11:46:00 Test Item Value Reference Range Comments PH ARTERIAL (BEAKER) (test tnod=236) 7.43 7.35-7.45 PCO2 ARTERIAL (BEAKER) (test dfpc=516) 46 mmHg 35-45 PO2 ARTERIAL (BEAKER) (test gzxc=303) 83 mmHg 80-90 O2 SATURATION ARTERIAL (BEAKER) (test ntdc=451) 96.5 % 96.0-97.0 HCO3 ARTERIAL (BEAKER) (test npxy=605) 30 mmol/L 21-29 BASE EXCESS ARTERIAL (BEAKER) (test sfij=662) 4.8 mmol/L -2.0-3.0 PATIENT TEMPERATURE (BEAKER) (test imdf=4442) 36.9 C FIO2 (BEAKER) (test kydu=1956) 36.0 % POCT-GLUCOSE [id number] 08:29:00 Test Item Value Reference Range Comments POC-GLUCOSE METER (BEAKER) 129 mg/dL 70-110 TESTED AT [facility] [address] [facility] (test wsxk=0770) [facility] [address] CALCIUM, [id number] 04:18:00 Test Item Value Reference Range Comments CALCIUM IONIZED (BEAKER) (test xemc=946) 1.11 mmol/L 1.12-1.27 PH, BLOOD (BEAKER) (test klzj=8295) 7.40 B-TYPE NATRIURETIC FACTOR (BNP)2017-07-29 04:06:00 Test Item Value Reference Range Comments B-TYPE NATRIURETIC PEPTIDE (BEAKER) (test 982 pg/mL 0-100 asoz=475) [id number] 03:59:00 Test Item Value Reference Range Comments PHOSPHORUS (BEAKER) (test nsfa=909) 3.6 mg/dL 2.3-4.7 [id number] 03:59:00 Test Item Value Reference Range Comments MAGNESIUM (BEAKER) (test pgwp=841) 1.9 mg/dL 1.6-2.6 BASIC METABOLIC [id number] 03:59:00 Test Item Value Reference Range Comments SODIUM (BEAKER) (test 141 meq/L 136-145 mgyd=897) POTASSIUM (BEAKER) (test 3.1 meq/L 3.5-5.1 gyar=988) CHLORIDE (BEAKER) (test 103 meq/L 98-107 twkd=766) CO2 (BEAKER) (test 26 meq/L 22-29 grhz=909) BLOOD UREA NITROGEN 17 mg/dL 7-21 (BEAKER) (test aprk=991) CREATININE (BEAKER) (test 1.43 mg/dL 0.57-1.25 liea=626) GLUCOSE RANDOM (BEAKER) 110 mg/dL 70-105 (test kgfg=591) CALCIUM (BEAKER) (test 9.0 mg/dL 8.4-10.2 uryz=381) EGFR (BEAKER) (test 44 mL/min/1.73 sq m ESTIMATED GFR IS NOT oqjk=8402) ACCURATE CREATININE CLEARANCE IN PREDICTING GLOMERULAR FILTRATION RATE. ESTIMATED GFR IS NOT APPLICABLE FOR DIALYSIS PATIENTS. CBC (HEMOGRAM ONLY)2017-07-29 03:51:00 Test Item Value Reference Range Comments WHITE BLOOD CELL COUNT (BEAKER) (test jhek=995) 12.2 K/ L 3.5-10.5 RED BLOOD CELL COUNT (BEAKER) (test lixa=071) 2.48 M/ L 3.93-5.22 HEMOGLOBIN (BEAKER) (test hovr=843) 7.4 GM/DL 11.2-15.7 HEMATOCRIT (BEAKER) (test ehdc=304) 24.2 % 34.1-44.9 MEAN CORPUSCULAR VOLUME (BEAKER) (test pxki=639) 97.6 fL 79.4-94.8 MEAN CORPUSCULAR HEMOGLOBIN (BEAKER) (test 29.8 pg 25.6-32.2 hfrc=616) MEAN CORPUSCULAR HEMOGLOBIN CONC (BEAKER) (test 30.6 GM/DL 32.2-35.5 iexx=803) RED CELL DISTRIBUTION WIDTH (BEAKER) (test 15.1 % 11.7-14.4 vhxd=781) PLATELET COUNT (BEAKER) (test qeku=479) 410 K/CU MM 150-450 MEAN PLATELET VOLUME (BEAKER) (test flch=187) 10.2 fL 9.4-12.3 NUCLEATED RED BLOOD CELLS (BEAKER) (test 0 /100 WBC 0-0 hezm=000) POCT-GLUCOSE [id number] 23:55:00 Test Item Value Reference Range Comments POC-GLUCOSE METER (BEAKER) 164 mg/dL 70-110 TESTED AT [facility] [address] [facility] (test dqdv=1574) [facility] [address] HERPES VIRUS ANTIBODY, [id number] 11:02:00 Test Item Value Reference Range Comments HERPES VIRUS IGM (BEAKER) (test zggn=4461) Negative HSV IgM 1=NEGATIVEHSV IgM 2=NEGATIVETOXOPLASMA GONDII ANTIBODY, [id number] 11 :02:00 Test Item Value Reference Range Comments TOXOPLASMA IGM ANTIBODY (BEAKER) (test ullr=292) Negative RAD, CHEST, 1 VIEW, NON [id number] 10:48:00Reason for exam:->acute respiratory insufficiencyShould this be [...] MDReport Verified Date/Time: 07/28/2017 10:48:24 Reading Location: [facility] Radiology Reading Room [id number] 05:13:00 Test Item Value Reference Range Comments PHOSPHORUS (BEAKER) (test rtye=353) 3.3 mg/dL 2.3-4.7 [id number] 05:13:00 Test Item Value Reference Range Comments MAGNESIUM (BEAKER) (test bauc=094) 1.9 mg/dL 1.6-2.6 HEPATIC FUNCTION [id number] 05:13:00 Test Item Value Reference Range Comments TOTAL PROTEIN (BEAKER) (test fqwy=468) 7.5 gm/dL 6.0-8.3 ALBUMIN (BEAKER) (test eitd=6624) 3.6 g/dL 3.5-5.0 BILIRUBIN TOTAL (BEAKER) (test xpqp=706) 0.9 mg/dL 0.2-1.2 BILIRUBIN DIRECT (BEAKER) (test wlkl=236) 0.4 mg/dL 0.1-0.5 ALKALINE PHOSPHATASE (BEAKER) (test mnhn=239) 66 U/L 40-150 AST (SGOT) (BEAKER) (test drjh=292) 21 U/L 5-34 ALT (SGPT) (BEAKER) (test shcp=476) 17 U/L 6-55 COMPREHENSIVE METABOLIC [id number] 05:13:00 Test Item Value Reference Range Comments TOTAL PROTEIN (BEAKER) 7.5 gm/dL 6.0-8.3 (test fcab=626) ALBUMIN (BEAKER) (test 3.6 g/dL 3.5-5.0 qanm=1029) ALKALINE PHOSPHATASE 66 U/L 40-150 (BEAKER) (test cjif=377) BILIRUBIN TOTAL (BEAKER) 0.9 mg/dL 0.2-1.2 (test vwwl=464) SODIUM (BEAKER) (test 143 meq/L 136-145 nbzn=529) POTASSIUM (BEAKER) (test 3.5 meq/L 3.5-5.1 ctyo=266) CHLORIDE (BEAKER) (test 105 meq/L 98-107 syae=633) CO2 (BEAKER) (test 25 meq/L 22-29 iuqs=343) BLOOD UREA NITROGEN 18 mg/dL 7-21 (BEAKER) (test xvza=618) CREATININE (BEAKER) (test 1.43 mg/dL 0.57-1.25 vyyk=488) GLUCOSE RANDOM (BEAKER) 130 mg/dL 70-105 (test cbfm=113) CALCIUM (BEAKER) (test 9.6 mg/dL 8.4-10.2 lhoj=172) AST (SGOT) (BEAKER) (test 21 U/L 5-34 jcqm=518) ALT (SGPT) (BEAKER) (test 17 U/L 6-55 efwu=191) EGFR (BEAKER) (test 44 mL/min/1.73 sq m ESTIMATED GFR IS NOT wkqp=8438) ACCURATE CREATININE CLEARANCE IN PREDICTING GLOMERULAR FILTRATION RATE. ESTIMATED GFR IS NOT APPLICABLE FOR DIALYSIS PATIENTS. LACTATE DEHYDROGENASE (LDH)2017-07-28 05:13:00 Test Item Value Reference Range Comments LACTATE DEHYDROGENASE (BEAKER) (test ocqm=535) 639 U/L 125-220 CBC W/PLT COUNT & AUTO [id number] 04:57:00 Test Item Value Reference Range Comments WHITE BLOOD CELL COUNT (BEAKER) (test rcbn=756) 13.6 K/ L 3.5-10.5 RED BLOOD CELL COUNT (BEAKER) (test lkpj=210) 2.86 M/ L 3.93-5.22 HEMOGLOBIN (BEAKER) (test watt=479) 8.5 GM/DL 11.2-15.7 HEMATOCRIT (BEAKER) (test upty=469) 28.9 % 34.1-44.9 MEAN CORPUSCULAR VOLUME (BEAKER) (test tobt=906) 101.0 fL 79.4-94.8 MEAN CORPUSCULAR HEMOGLOBIN (BEAKER) (test 29.7 pg 25.6-32.2 owvr=157) MEAN CORPUSCULAR HEMOGLOBIN CONC (BEAKER) (test 29.4 GM/DL 32.2-35.5 dphb=375) RED CELL DISTRIBUTION WIDTH (BEAKER) (test 15.2 % 11.7-14.4 fuwa=372) PLATELET COUNT (BEAKER) (test niwq=376) 375 K/CU MM 150-450 MEAN PLATELET VOLUME (BEAKER) (test tjks=304) 10.7 fL 9.4-12.3 NUCLEATED RED BLOOD CELLS (BEAKER) (test 0 /100 WBC 0-0 egwb=989) NEUTROPHILS RELATIVE PERCENT (BEAKER) (test 82 % yrqw=673) LYMPHOCYTES RELATIVE PERCENT (BEAKER) (test 9 % eyfz=059) MONOCYTES RELATIVE PERCENT (BEAKER) (test 6 % yegn=713) EOSINOPHILS RELATIVE PERCENT (BEAKER) (test 2 % vsxb=230) BASOPHILS RELATIVE PERCENT (BEAKER) (test 1 % wfzv=815) NEUTROPHILS ABSOLUTE COUNT (BEAKER) (test 11.11 K/ L 1.56-6.13 mclh=530) LYMPHOCYTES ABSOLUTE COUNT (BEAKER) (test 1.17 K/ L 1.18-3.74 yorj=410) MONOCYTES ABSOLUTE COUNT (BEAKER) (test 0.83 K/ L 0.24-0.36 uzuv=640) EOSINOPHILS ABSOLUTE COUNT (BEAKER) (test 0.25 K/ L 0.04-0.36 cttt=175) BASOPHILS ABSOLUTE COUNT (BEAKER) (test 0.07 K/ L 0.01-0.08 lstk=617) IMMATURE GRANULOCYTES-RELATIVE PERCENT (BEAKER) 1 % 0-1 (test usvw=2585) OCCULT BLOOD, [id number] 01:02:00 Test Item Value Reference Range Comments FECAL OCCULT BLOOD (BEAKER) (test icth=016) Negative Negative POCT-GLUCOSE [id number] 00:46:00 Test Item Value Reference Range Comments POC-GLUCOSE METER (BEAKER) 149 mg/dL 70-110 TESTED AT [address] (test fvmg=4853) [place] [id number] C. DIFFICILE GDH [id number] 19:51:00 Test Item Value Reference Range Comments CDT TOXIN (test Negative Negative lqdm=[id number]) CDT GDH ANTIGEN (test Negative Negative No indication of Clostridium xrcl=[id number]) difficile infection and no colonization. Discontinue enteric isolation and therapy. Testing performed by [employer] Rapid Cassette Assay. For GDH, published sensitivity of the assay is 98.7% compared to cytotoxicity testing. For Toxin AB, published sensitivity is 87.8% and specificity 99.4% compared to cytotoxicity testing.Verification of kit performance was done by the [facility] prior to clinical use.POCT-GLUCOSE [id number] 18:11:00 Test Item Value Reference Range Comments POC-GLUCOSE METER (BEAKER) 201 mg/dL 70-110 TESTED AT [address] (test zxav=1146) [place] [id number] BLOOD GAS, [id number] 17:03:00 Test Item Value Reference Range Comments PH ARTERIAL (BEAKER) (test zrsk=974) 7.41 7.35-7.45 PCO2 ARTERIAL (BEAKER) (test tcea=758) 45 mmHg 35-45 PO2 ARTERIAL (BEAKER) (test izdz=209) 94 mmHg 80-90 O2 SATURATION ARTERIAL (BEAKER) (test lkjs=139) 97.3 % 96.0-97.0 HCO3 ARTERIAL (BEAKER) (test npjc=698) 28 mmol/L 21-29 BASE EXCESS ARTERIAL (BEAKER) (test bfbb=186) 2.3 mmol/L -2.0-3.0 PATIENT TEMPERATURE (BEAKER) (test cgqu=8469) 36.6 C FIO2 (BEAKER) (test yica=3699) 40.0 % POCT-GLUCOSE [id number] 12:44:00 Test Item Value Reference Range Comments POC-GLUCOSE METER (BEAKER) 117 mg/dL 70-110 TESTED AT [address] (test ufam=5668) [facility] [address] B-TYPE NATRIURETIC FACTOR (BNP)2017-07-27 11:13:00 Test Item Value Reference Range Comments B-TYPE NATRIURETIC PEPTIDE (BEAKER) (test 1198 pg/mL 0-100 mpxv=282) LACTIC ACID, VENOUS, WHOLE [id number] 11:12:00 Test Item Value Reference Range Comments LACTATE BLOOD VENOUS (2) (BEAKER) (test 0.7 mmol/L 0.5-2.2 vutf=0769) Effective 08/06/2015: Units/Reference Range ChangeNew: 0.5-2.2 mmol/L Previous: 5 -20 mg/dLOXYGEN SATURATION, [id number] 10:28:00 Test Item Value Reference Range Comments O2 SATURATION (MEASURED) (BEAKER) (test bvkk=0072) 59.6 % RAD, CHEST, 1 VIEW, NON [id number] 08:23:00Reason for exam:->acute respiratory insufficiencyShould this be [...] Verified Date/Time: 07/27/2017 08:23 :08 Reading Location: [facility] Radiology Reading Room POCT-GLUCOSE [id number] 07:53:00 Test Item Value Reference Range Comments POC-GLUCOSE METER (BEAKER) 124 mg/dL 70-110 TESTED AT [facility] [address] [facility] (test bjha=6765) [facility] [address] BASIC METABOLIC [id number] 06:33:00 Test Item Value Reference Range Comments SODIUM (BEAKER) (test 144 meq/L 136-145 uaeh=345) POTASSIUM (BEAKER) (test 3.8 meq/L 3.5-5.1 odim=648) CHLORIDE (BEAKER) (test 109 meq/L 98-107 wlrq=968) CO2 (BEAKER) (test 24 meq/L 22-29 kdst=257) BLOOD UREA NITROGEN 20 mg/dL 7-21 (BEAKER) (test phhw=093) CREATININE (BEAKER) (test 1.40 mg/dL 0.57-1.25 zqgz=662) GLUCOSE RANDOM (BEAKER) 111 mg/dL 70-105 (test csjs=862) CALCIUM (BEAKER) (test 8.8 mg/dL 8.4-10.2 fodm=654) EGFR (BEAKER) (test 45 mL/min/1.73 sq m ESTIMATED GFR IS NOT atsc=5904) ACCURATE CREATININE CLEARANCE IN PREDICTING GLOMERULAR FILTRATION RATE. ESTIMATED GFR IS NOT APPLICABLE FOR DIALYSIS PATIENTS. [id number] 06:24:00 Test Item Value Reference Range Comments PHOSPHORUS (BEAKER) (test psfj=866) 3.3 mg/dL 2.3-4.7 BASIC METABOLIC [id number] 06:24:00 Test Item Value Reference Range Comments SODIUM (BEAKER) (test 145 meq/L 136-145 nprf=753) POTASSIUM (BEAKER) (test 3.8 meq/L 3.5-5.1 lezx=205) CHLORIDE (BEAKER) (test 110 meq/L 98-107 ykcb=972) CO2 (BEAKER) (test 24 meq/L 22-29 thhi=089) BLOOD UREA NITROGEN 21 mg/dL 7-21 (BEAKER) (test shub=721) CREATININE (BEAKER) (test 1.39 mg/dL 0.57-1.25 zpei=365) GLUCOSE RANDOM (BEAKER) 112 mg/dL 70-105 (test neha=640) CALCIUM (BEAKER) (test 8.9 mg/dL 8.4-10.2 xhbh=199) EGFR (BEAKER) (test 45 mL/min/1.73 sq m ESTIMATED GFR IS NOT ajgb=2910) ACCURATE CREATININE CLEARANCE IN PREDICTING GLOMERULAR FILTRATION RATE. ESTIMATED GFR IS NOT APPLICABLE FOR DIALYSIS PATIENTS. [id number] 03:27:00 Test Item Value Reference Range Comments PROCALCITONIN (BEAKER) (test hdtr=7837) 0.28 ng/mL <0.05 SEPSIS RISK (ng/mL)Low: 0.05-0.50Intermediate: 0.51-2.00High: & gt;=2.01LACTATE DEHYDROGENASE (LDH)2017-07-27 03:07:00 Test Item Value Reference Range Comments LACTATE DEHYDROGENASE (BEAKER) (test ydro=872) 615 U/L 125-220 HEPATIC FUNCTION [id number] 03:07:00 Test Item Value Reference Range Comments TOTAL PROTEIN (BEAKER) (test uolf=790) 6.8 gm/dL 6.0-8.3 ALBUMIN (BEAKER) (test eqmp=0177) 3.2 g/dL 3.5-5.0 BILIRUBIN TOTAL (BEAKER) (test kchs=431) 0.9 mg/dL 0.2-1.2 BILIRUBIN DIRECT (BEAKER) (test smrm=643) 0.5 mg/dL 0.1-0.5 ALKALINE PHOSPHATASE (BEAKER) (test awwo=558) 58 U/L 40-150 AST (SGOT) (BEAKER) (test cyye=552) 21 U/L 5-34 ALT (SGPT) (BEAKER) (test nxiw=099) 15 U/L 6-55 CALCIUM, [id number] 02:57:00 Test Item Value Reference Range Comments CALCIUM IONIZED (BEAKER) (test xods=755) 1.14 mmol/L 1.12-1.27 PH, BLOOD (BEAKER) (test pmjr=5445) 7.42 CBC W/PLT COUNT & AUTO [id number] 02:56:00 Test Item Value Reference Range Comments WHITE BLOOD CELL COUNT (BEAKER) (test ilne=190) 12.4 K/ L 3.5-10.5 RED BLOOD CELL COUNT (BEAKER) (test silu=613) 2.50 M/ L 3.93-5.22 HEMOGLOBIN (BEAKER) (test xhjt=883) 7.4 GM/DL 11.2-15.7 HEMATOCRIT (BEAKER) (test ovon=072) 24.7 % 34.1-44.9 MEAN CORPUSCULAR VOLUME (BEAKER) (test kdac=639) 98.8 fL 79.4-94.8 MEAN CORPUSCULAR HEMOGLOBIN (BEAKER) (test 29.6 pg 25.6-32.2 kmns=378) MEAN CORPUSCULAR HEMOGLOBIN CONC (BEAKER) (test 30.0 GM/DL 32.2-35.5 kgrz=037) RED CELL DISTRIBUTION WIDTH (BEAKER) (test 15.1 % 11.7-14.4 ybsn=805) PLATELET COUNT (BEAKER) (test ljbg=169) 233 K/CU MM 150-450 MEAN PLATELET VOLUME (BEAKER) (test ociq=855) 10.5 fL 9.4-12.3 NUCLEATED RED BLOOD CELLS (BEAKER) (test 0 /100 WBC 0-0 ofug=474) NEUTROPHILS RELATIVE PERCENT (BEAKER) (test 80 % svby=680) LYMPHOCYTES RELATIVE PERCENT (BEAKER) (test 9 % vnix=399) MONOCYTES RELATIVE PERCENT (BEAKER) (test 7 % hgcv=549) EOSINOPHILS RELATIVE PERCENT (BEAKER) (test 2 % glbo=844) BASOPHILS RELATIVE PERCENT (BEAKER) (test 0 % yjqq=187) NEUTROPHILS ABSOLUTE COUNT (BEAKER) (test 9.94 K/ L 1.56-6.13 jivq=151) LYMPHOCYTES ABSOLUTE COUNT (BEAKER) (test 1.15 K/ L 1.18-3.74 qsrd=631) MONOCYTES ABSOLUTE COUNT (BEAKER) (test 0.90 K/ L 0.24-0.36 cftn=506) EOSINOPHILS ABSOLUTE COUNT (BEAKER) (test 0.24 K/ L 0.04-0.36 zqpx=303) BASOPHILS ABSOLUTE COUNT (BEAKER) (test 0.05 K/ L 0.01-0.08 zqvf=135) IMMATURE GRANULOCYTES-RELATIVE PERCENT (BEAKER) 1 % 0-1 (test svsf=2752) [id number] 01:29:00 Test Item Value Reference Range Comments PHOSPHORUS (BEAKER) (test ixnd=789) 3.5 mg/dL 2.3-4.7 BASIC METABOLIC [id number] 01:29:00 Test Item Value Reference Range Comments SODIUM (BEAKER) (test 145 meq/L 136-145 zaqs=262) POTASSIUM (BEAKER) (test 3.4 meq/L 3.5-5.1 mlfm=741) CHLORIDE (BEAKER) (test 107 meq/L 98-107 ecim=111) CO2 (BEAKER) (test 26 meq/L 22-29 vvgi=764) BLOOD UREA NITROGEN 21 mg/dL 7-21 (BEAKER) (test koxx=961) CREATININE (BEAKER) (test 1.47 mg/dL 0.57-1.25 qegq=922) GLUCOSE RANDOM (BEAKER) 138 mg/dL 70-105 (test bbnb=635) CALCIUM (BEAKER) (test 9.1 mg/dL 8.4-10.2 kwca=134) EGFR (BEAKER) (test 43 mL/min/1.73 sq m ESTIMATED GFR IS NOT qkdv=0676) ACCURATE CREATININE CLEARANCE IN PREDICTING GLOMERULAR FILTRATION RATE. ESTIMATED GFR IS NOT APPLICABLE FOR DIALYSIS PATIENTS. POCT-GLUCOSE [id number] 22:08:00 Test Item Value Reference Range Comments POC-GLUCOSE METER (BEAKER) 166 mg/dL 70-110 TESTED AT [facility] [address] [facility] (test zvkm=9554) [facility] [address] [id number] 21:22:00 Test Item Value Reference Range Comments MAGNESIUM (BEAKER) (test njho=467) 2.2 mg/dL 1.6-2.6 [id number] 19:23:00 Test Item Value Reference Range Comments PHOSPHORUS (BEAKER) (test fint=215) 2.9 mg/dL 2.3-4.7 BASIC METABOLIC [id number] 19:23:00 Test Item Value Reference Range Comments SODIUM (BEAKER) (test 145 meq/L 136-145 ehyn=170) POTASSIUM (BEAKER) (test 3.6 meq/L 3.5-5.1 fkmk=021) CHLORIDE (BEAKER) (test 109 meq/L 98-107 qamp=554) CO2 (BEAKER) (test 24 meq/L 22-29 xsaq=585) BLOOD UREA NITROGEN 22 mg/dL 7-21 (BEAKER) (test llwd=838) CREATININE (BEAKER) (test 1.48 mg/dL 0.57-1.25 uoxo=999) GLUCOSE RANDOM (BEAKER) 150 mg/dL 70-105 (test slvu=888) CALCIUM (BEAKER) (test 9.0 mg/dL 8.4-10.2 ijum=691) EGFR (BEAKER) (test 42 mL/min/1.73 sq m ESTIMATED GFR IS NOT rgoa=8265) ACCURATE CREATININE CLEARANCE IN PREDICTING GLOMERULAR FILTRATION RATE. ESTIMATED GFR IS NOT APPLICABLE FOR DIALYSIS PATIENTS. POCT-GLUCOSE [id number] 18:13:00 Test Item Value Reference Range Comments POC-GLUCOSE METER (BEAKER) 188 mg/dL 70-110 TESTED AT [facility] [address] [facility] (test pnlx=9318) [facility] [address] [id number] 13:12:00 Test Item Value Reference Range Comments PHOSPHORUS (BEAKER) (test xbyc=017) 2.7 mg/dL 2.3-4.7 BASIC METABOLIC [id number] 13:12:00 Test Item Value Reference Range Comments SODIUM (BEAKER) (test 144 meq/L 136-145 jyyn=017) POTASSIUM (BEAKER) (test 3.5 meq/L 3.5-5.1 chfl=395) CHLORIDE (BEAKER) (test 108 meq/L 98-107 qisb=468) CO2 (BEAKER) (test 26 meq/L 22-29 eakg=156) BLOOD UREA NITROGEN 23 mg/dL 7-21 (BEAKER) (test ptnr=695) CREATININE (BEAKER) (test 1.45 mg/dL 0.57-1.25 dtjg=287) GLUCOSE RANDOM (BEAKER) 183 mg/dL 70-105 (test zkko=827) CALCIUM (BEAKER) (test 8.5 mg/dL 8.4-10.2 rpno=101) EGFR (BEAKER) (test 43 mL/min/1.73 sq m ESTIMATED GFR IS NOT mnmz=6087) ACCURATE CREATININE CLEARANCE IN PREDICTING GLOMERULAR FILTRATION RATE. ESTIMATED GFR IS NOT APPLICABLE FOR DIALYSIS PATIENTS. POCT-GLUCOSE [id number] 12:07:00 Test Item Value Reference Range Comments POC-GLUCOSE METER (BEAKER) 203 mg/dL 70-110 TESTED AT [address] (test quhb=1634) [facility] [address] [id number] 09:50:00 Test Item Value Reference Range Comments MAGNESIUM (BEAKER) (test yfjc=714) 2.6 mg/dL 1.6-2.6 RAD, CHEST, 1 VIEW, NON [id number] 08:06:00Reason for exam:->acute respiratory insufficiencyShould this be [...] MDReport Verified Date/Time: 07/26/2017 08:06:19 Reading Location: [facility] Radiology Reading Room POCT-GLUCOSE [id number] 07:58:00 Test Item Value Reference Range Comments POC-GLUCOSE METER (BEAKER) 176 mg/dL 70-110 TESTED AT [facility] [address] [facility] (test uumm=4551) [facility] [address] OXYGEN SATURATION, [id number] 05:23:00 Test Item Value Reference Range Comments O2 SATURATION (MEASURED) (BEAKER) (test ctcw=4323) 64.5 % calibrationBLOOD GAS, [id number] 04:43:00 Test Item Value Reference Range Comments PH ARTERIAL (BEAKER) (test eknj=258) 7.44 7.35-7.45 PCO2 ARTERIAL (BEAKER) (test buom=575) 44 mmHg 35-45 PO2 ARTERIAL (BEAKER) (test nect=533) 127 mmHg 80-90 O2 SATURATION ARTERIAL (BEAKER) (test cnpy=437) 98.6 % 96.0-97.0 HCO3 ARTERIAL (BEAKER) (test kwpm=016) 29 mmol/L 21-29 BASE EXCESS ARTERIAL (BEAKER) (test yjct=022) 4.6 mmol/L -2.0-3.0 PATIENT TEMPERATURE (BEAKER) (test zumm=4872) 37.3 C FIO2 (BEAKER) (test ozyw=0058) 100.0 % [id number] 04:31:00 Test Item Value Reference Range Comments PHOSPHORUS (BEAKER) (test jeab=144) 3.4 mg/dL 2.3-4.7 [id number] 04:31:00 Test Item Value Reference Range Comments MAGNESIUM (BEAKER) (test yoko=991) 2.2 mg/dL 1.6-2.6 BASIC METABOLIC [id number] 04:31:00 Test Item Value Reference Range Comments SODIUM (BEAKER) (test 146 meq/L 136-145 pgtw=934) POTASSIUM (BEAKER) (test 3.7 meq/L 3.5-5.1 lqtm=406) CHLORIDE (BEAKER) (test 108 meq/L 98-107 stbo=740) CO2 (BEAKER) (test 28 meq/L 22-29 rtdi=044) BLOOD UREA NITROGEN 23 mg/dL 7-21 (BEAKER) (test kmpb=016) CREATININE (BEAKER) (test 1.51 mg/dL 0.57-1.25 bojp=470) GLUCOSE RANDOM (BEAKER) 151 mg/dL 70-105 (test wjyx=343) CALCIUM (BEAKER) (test 9.4 mg/dL 8.4-10.2 klki=972) EGFR (BEAKER) (test 41 mL/min/1.73 sq m ESTIMATED GFR IS NOT rooq=5474) ACCURATE CREATININE CLEARANCE IN PREDICTING GLOMERULAR FILTRATION RATE. ESTIMATED GFR IS NOT APPLICABLE FOR DIALYSIS PATIENTS. HEPATIC FUNCTION [id number] 04:31:00 Test Item Value Reference Range Comments TOTAL PROTEIN (BEAKER) (test zpoc=873) 6.6 gm/dL 6.0-8.3 ALBUMIN (BEAKER) (test pdxt=1799) 3.2 g/dL 3.5-5.0 BILIRUBIN TOTAL (BEAKER) (test khby=533) 1.0 mg/dL 0.2-1.2 BILIRUBIN DIRECT (BEAKER) (test hvyy=494) 0.5 mg/dL 0.1-0.5 ALKALINE PHOSPHATASE (BEAKER) (test gwgr=509) 60 U/L 40-150 AST (SGOT) (BEAKER) (test wmeu=995) 25 U/L 5-34 ALT (SGPT) (BEAKER) (test eikb=593) 18 U/L 6-55 COMPREHENSIVE METABOLIC [id number] 04:31:00 Test Item Value Reference Range Comments TOTAL PROTEIN (BEAKER) 6.6 gm/dL 6.0-8.3 (test vltu=235) ALBUMIN (BEAKER) (test 3.2 g/dL 3.5-5.0 mffy=0708) ALKALINE PHOSPHATASE 60 U/L 40-150 (BEAKER) (test gneg=374) BILIRUBIN TOTAL (BEAKER) 1.0 mg/dL 0.2-1.2 (test oibw=319) SODIUM (BEAKER) (test 146 meq/L 136-145 pmpq=267) POTASSIUM (BEAKER) (test 3.7 meq/L 3.5-5.1 gvlg=590) CHLORIDE (BEAKER) (test 108 meq/L 98-107 nrky=474) CO2 (BEAKER) (test 28 meq/L 22-29 ljdp=665) BLOOD UREA NITROGEN 23 mg/dL 7-21 (BEAKER) (test ezfh=565) CREATININE (BEAKER) (test 1.51 mg/dL 0.57-1.25 jirf=690) GLUCOSE RANDOM (BEAKER) 151 mg/dL 70-105 (test chve=390) CALCIUM (BEAKER) (test 9.4 mg/dL 8.4-10.2 ajsa=586) AST (SGOT) (BEAKER) (test 25 U/L 5-34 sstn=335) ALT (SGPT) (BEAKER) (test 18 U/L 6-55 jygf=688) EGFR (BEAKER) (test 41 mL/min/1.73 sq m ESTIMATED GFR IS NOT gqrb=5470) ACCURATE CREATININE CLEARANCE IN PREDICTING GLOMERULAR FILTRATION RATE. ESTIMATED GFR IS NOT APPLICABLE FOR DIALYSIS PATIENTS. LACTATE DEHYDROGENASE (LDH)2017-07-26 04:31:00 Test Item Value Reference Range Comments LACTATE DEHYDROGENASE (BEAKER) (test untt=128) 661 U/L 125-220 CALCIUM, [id number] 04:23:00 Test Item Value Reference Range Comments CALCIUM IONIZED (BEAKER) (test krjb=748) 1.15 mmol/L 1.12-1.27 PH, BLOOD (BEAKER) (test brqf=4015) 7.47 CBC W/PLT COUNT & AUTO [id number] 04:20:00 Test Item Value Reference Range Comments WHITE BLOOD CELL COUNT (BEAKER) (test dfsv=410) 13.0 K/ L 3.5-10.5 RED BLOOD CELL COUNT (BEAKER) (test uhhv=850) 2.56 M/ L 3.93-5.22 HEMOGLOBIN (BEAKER) (test etov=710) 7.6 GM/DL 11.2-15.7 HEMATOCRIT (BEAKER) (test gvsp=072) 25.4 % 34.1-44.9 MEAN CORPUSCULAR VOLUME (BEAKER) (test bsnt=923) 99.2 fL 79.4-94.8 MEAN CORPUSCULAR HEMOGLOBIN (BEAKER) (test 29.7 pg 25.6-32.2 qdyx=980) MEAN CORPUSCULAR HEMOGLOBIN CONC (BEAKER) (test 29.9 GM/DL 32.2-35.5 tksd=616) RED CELL DISTRIBUTION WIDTH (BEAKER) (test 15.0 % 11.7-14.4 ystc=063) PLATELET COUNT (BEAKER) (test ovat=185) 161 K/CU MM 150-450 MEAN PLATELET VOLUME (BEAKER) (test ovep=114) 11.0 fL 9.4-12.3 NUCLEATED RED BLOOD CELLS (BEAKER) (test 0 /100 WBC 0-0 buwo=451) NEUTROPHILS RELATIVE PERCENT (BEAKER) (test 79 % wbfl=544) LYMPHOCYTES RELATIVE PERCENT (BEAKER) (test 10 % letg=658) MONOCYTES RELATIVE PERCENT (BEAKER) (test 7 % vblb=499) EOSINOPHILS RELATIVE PERCENT (BEAKER) (test 2 % ngja=332) BASOPHILS RELATIVE PERCENT (BEAKER) (test 1 % xwom=290) NEUTROPHILS ABSOLUTE COUNT (BEAKER) (test 10.33 K/ L 1.56-6.13 sxwy=298) LYMPHOCYTES ABSOLUTE COUNT (BEAKER) (test 1.35 K/ L 1.18-3.74 uqrt=432) MONOCYTES ABSOLUTE COUNT (BEAKER) (test 0.96 K/ L 0.24-0.36 xrws=622) EOSINOPHILS ABSOLUTE COUNT (BEAKER) (test 0.19 K/ L 0.04-0.36 cfzp=402) BASOPHILS ABSOLUTE COUNT (BEAKER) (test 0.07 K/ L 0.01-0.08 zkdu=889) IMMATURE GRANULOCYTES-RELATIVE PERCENT (BEAKER) 1 % 0-1 (test nuwd=7468) [id number] 21:19:00 Test Item Value Reference Range Comments PHOSPHORUS (BEAKER) (test ammi=603) 4.4 mg/dL 2.3-4.7 [id number] 21:19:00 Test Item Value Reference Range Comments MAGNESIUM (BEAKER) (test mqpy=339) 2.1 mg/dL 1.6-2.6 BASIC METABOLIC [id number] 21:19:00 Test Item Value Reference Range Comments SODIUM (BEAKER) (test 146 meq/L 136-145 cfhj=380) POTASSIUM (BEAKER) (test 3.9 meq/L 3.5-5.1 jzem=129) CHLORIDE (BEAKER) (test 108 meq/L 98-107 bgoz=265) CO2 (BEAKER) (test 27 meq/L 22-29 upqz=591) BLOOD UREA NITROGEN 24 mg/dL 7-21 (BEAKER) (test wxvq=721) CREATININE (BEAKER) (test 1.64 mg/dL 0.57-1.25 rtac=965) GLUCOSE RANDOM (BEAKER) 120 mg/dL 70-105 (test cszd=443) CALCIUM (BEAKER) (test 9.5 mg/dL 8.4-10.2 bmpk=095) EGFR (BEAKER) (test 38 mL/min/1.73 sq m ESTIMATED GFR IS NOT modl=0287) ACCURATE CREATININE CLEARANCE IN PREDICTING GLOMERULAR FILTRATION RATE. ESTIMATED GFR IS NOT APPLICABLE FOR DIALYSIS PATIENTS. POCT-GLUCOSE [id number] 18:36:00 Test Item Value Reference Range Comments POC-GLUCOSE METER (BEAKER) 129 mg/dL 70-110 TESTED AT [address] (test pgja=4643) [place] [id number] POCT-GLUCOSE [id number] 16:19:00 Test Item Value Reference Range Comments POC-GLUCOSE METER (BEAKER) 132 mg/dL 70-110 TESTED AT [place] [id number] [facility] (test rczu=8738) [place] [id number] [id number] 13:57:00 Test Item Value Reference Range Comments PHOSPHORUS (BEAKER) (test knkb=867) 4.2 mg/dL 2.3-4.7 BASIC METABOLIC [id number] 13:57:00 Test Item Value Reference Range Comments SODIUM (BEAKER) (test 147 meq/L 136-145 mbqa=286) POTASSIUM (BEAKER) (test 3.7 meq/L 3.5-5.1 yqjy=907) CHLORIDE (BEAKER) (test 110 meq/L 98-107 klhy=174) CO2 (BEAKER) (test 25 meq/L 22-29 tjzn=042) BLOOD UREA NITROGEN 23 mg/dL 7-21 (BEAKER) (test cnwt=453) CREATININE (BEAKER) (test 1.58 mg/dL 0.57-1.25 femg=377) GLUCOSE RANDOM (BEAKER) 129 mg/dL 70-105 (test awde=693) CALCIUM (BEAKER) (test 9.2 mg/dL 8.4-10.2 cwmj=932) EGFR (BEAKER) (test 39 mL/min/1.73 sq m ESTIMATED GFR IS NOT ddjg=7731) ACCURATE CREATININE CLEARANCE IN PREDICTING GLOMERULAR FILTRATION RATE. ESTIMATED GFR IS NOT APPLICABLE FOR DIALYSIS PATIENTS. BLOOD GAS, [id number] 13:48:00 Test Item Value Reference Range Comments PH ARTERIAL (BEAKER) (test isow=082) 7.42 7.35-7.45 PCO2 ARTERIAL (BEAKER) (test mvxd=642) 47 mmHg 35-45 PO2 ARTERIAL (BEAKER) (test yluy=113) 202 mmHg 80-90 O2 SATURATION ARTERIAL (BEAKER) (test siul=643) 99.4 % 96.0-97.0 HCO3 ARTERIAL (BEAKER) (test tvpv=879) 29 mmol/L 21-29 BASE EXCESS ARTERIAL (BEAKER) (test ppfx=642) 4.4 mmol/L -2.0-3.0 PATIENT TEMPERATURE (BEAKER) (test itey=2735) 37.6 C FIO2 (BEAKER) (test jzuf=7762) 100.0 % POCT-GLUCOSE [id number] 13:31:00 Test Item Value Reference Range Comments POC-GLUCOSE METER (BEAKER) 128 mg/dL 70-110 TESTED AT [facility] [address] [place] [address] (test xfve=8580) [facility] [address] POCT-GLUCOSE [id number] 11:02:00 Test Item Value Reference Range Comments POC-GLUCOSE METER (BEAKER) 137 mg/dL 70-110 TESTED AT [address] (test lmgq=6813) [facility] [address] POCT-GLUCOSE [id number] 11:02:00 Test Item Value Reference Range Comments POC-GLUCOSE METER (BEAKER) 141 mg/dL 70-110 TESTED AT [address] (test smth=7127) [facility] [address] POCT-GLUCOSE [id number] 11:02:00 Test Item Value Reference Range Comments POC-GLUCOSE METER (BEAKER) 104 mg/dL 70-110 TESTED AT [facility] [address] [facility] (test piok=8874) [facility] [address] BLOOD [id number] 11:00:00 Test Item Value Reference Range Comments CULTURE (BEAKER) (test guja=6597) No growth in 5 days BLOOD [id number] 11:00:00 Test Item Value Reference Range Comments CULTURE (BEAKER) (test ttas=1682) No growth in 5 days CBC W/PLT COUNT & AUTO [id number] 08:54:00 Test Item Value Reference Range Comments WHITE BLOOD CELL COUNT (BEAKER) (test turb=462) 13.8 K/ L 3.5-10.5 RED BLOOD CELL COUNT (BEAKER) (test wibg=566) 2.54 M/ L 3.93-5.22 HEMOGLOBIN (BEAKER) (test ftar=518) 7.7 GM/DL 11.2-15.7 HEMATOCRIT (BEAKER) (test vlyq=864) 25.2 % 34.1-44.9 MEAN CORPUSCULAR VOLUME (BEAKER) (test mwbz=918) 99.2 fL 79.4-94.8 MEAN CORPUSCULAR HEMOGLOBIN (BEAKER) (test 30.3 pg 25.6-32.2 jcco=010) MEAN CORPUSCULAR HEMOGLOBIN CONC (BEAKER) (test 30.6 GM/DL 32.2-35.5 ruel=871) RED CELL DISTRIBUTION WIDTH (BEAKER) (test 15.2 % 11.7-14.4 nssi=423) PLATELET COUNT (BEAKER) (test ewik=874) 127 K/CU MM 150-450 MEAN PLATELET VOLUME (BEAKER) (test junf=089) 10.6 fL 9.4-12.3 NUCLEATED RED BLOOD CELLS (BEAKER) (test 0 /100 WBC 0-0 jlcp=652) NEUTROPHILS RELATIVE PERCENT (BEAKER) (test 81 % oytx=516) LYMPHOCYTES RELATIVE PERCENT (BEAKER) (test 8 % dele=031) MONOCYTES RELATIVE PERCENT (BEAKER) (test 9 % udyt=202) EOSINOPHILS RELATIVE PERCENT (BEAKER) (test 1 % flbg=983) BASOPHILS RELATIVE PERCENT (BEAKER) (test 0 % mjmm=594) NEUTROPHILS ABSOLUTE COUNT (BEAKER) (test 11.11 K/ L 1.56-6.13 walp=069) LYMPHOCYTES ABSOLUTE COUNT (BEAKER) (test 1.14 K/ L 1.18-3.74 lyzl=225) MONOCYTES ABSOLUTE COUNT (BEAKER) (test 1.20 K/ L 0.24-0.36 xaqz=186) EOSINOPHILS ABSOLUTE COUNT (BEAKER) (test 0.15 K/ L 0.04-0.36 vvhu=706) BASOPHILS ABSOLUTE COUNT (BEAKER) (test 0.04 K/ L 0.01-0.08 jgmd=076) IMMATURE GRANULOCYTES-RELATIVE PERCENT (BEAKER) 1 % 0-1 (test iqxj=7447) BLOOD GAS, [id number] 08:40:00 Test Item Value Reference Range Comments PH ARTERIAL (BEAKER) (test lqpp=909) 7.43 7.35-7.45 PCO2 ARTERIAL (BEAKER) (test behg=762) 35 mmHg 35-45 PO2 ARTERIAL (BEAKER) (test wdun=888) 82 mmHg 80-90 O2 SATURATION ARTERIAL (BEAKER) (test iwgn=414) 95.7 % 96.0-97.0 HCO3 ARTERIAL (BEAKER) (test ajds=205) 22 mmol/L 21-29 BASE EXCESS ARTERIAL (BEAKER) (test rfgk=067) -1.3 mmol/L -2.0-3.0 PATIENT TEMPERATURE (BEAKER) (test bvtp=2042) 38.3 C FIO2 (BEAKER) (test pdjk=9741) 40.0 % [id number] 06:59:00 Test Item Value Reference Range Comments PHOSPHORUS (BEAKER) (test gdgm=801) 3.4 mg/dL 2.3-4.7 [id number] 06:59:00 Test Item Value Reference Range Comments MAGNESIUM (BEAKER) (test mefd=476) 2.0 mg/dL 1.6-2.6 BASIC METABOLIC [id number] 06:59:00 Test Item Value Reference Range Comments SODIUM (BEAKER) (test 147 meq/L 136-145 tbum=633) POTASSIUM (BEAKER) (test 3.7 meq/L 3.5-5.1 dvtl=379) CHLORIDE (BEAKER) (test 111 meq/L 98-107 pjac=431) CO2 (BEAKER) (test 23 meq/L 22-29 wzwn=746) BLOOD UREA NITROGEN 24 mg/dL 7-21 (BEAKER) (test pphw=451) CREATININE (BEAKER) (test 1.57 mg/dL 0.57-1.25 hwel=207) GLUCOSE RANDOM (BEAKER) 121 mg/dL 70-105 (test hjvd=744) CALCIUM (BEAKER) (test 9.0 mg/dL 8.4-10.2 cqjo=274) EGFR (BEAKER) (test 39 mL/min/1.73 sq m ESTIMATED GFR IS NOT aair=5893) ACCURATE CREATININE CLEARANCE IN PREDICTING GLOMERULAR FILTRATION RATE. ESTIMATED GFR IS NOT APPLICABLE FOR DIALYSIS PATIENTS. POCT-GLUCOSE [id number] 06:27:00 Test Item Value Reference Range Comments POC-GLUCOSE METER (BEAKER) 95 mg/dL 70-110 TESTED AT [address] (test xgmd=1349) [place] [id number] POCT-GLUCOSE [id number] 06:04:00 Test Item Value Reference Range Comments POC-GLUCOSE METER (BEAKER) 128 mg/dL 70-110 TESTED AT [address] (test dkdc=9951) [place] [address] [id number] 05:36:00 Test Item Value Reference Range Comments PHOSPHORUS (BEAKER) (test tvue=130) 3.4 mg/dL 2.3-4.7 BASIC METABOLIC [id number] 05:36:00 Test Item Value Reference Range Comments SODIUM (BEAKER) (test 146 meq/L 136-145 eajr=441) POTASSIUM (BEAKER) (test 3.6 meq/L 3.5-5.1 csdq=236) CHLORIDE (BEAKER) (test 110 meq/L 98-107 ttpx=049) CO2 (BEAKER) (test 25 meq/L 22-29 guhh=835) BLOOD UREA NITROGEN 25 mg/dL 7-21 (BEAKER) (test rhgb=189) CREATININE (BEAKER) (test 1.58 mg/dL 0.57-1.25 whnd=259) GLUCOSE RANDOM (BEAKER) 114 mg/dL 70-105 (test xmpc=420) CALCIUM (BEAKER) (test 8.9 mg/dL 8.4-10.2 wvqj=215) EGFR (BEAKER) (test 39 mL/min/1.73 sq m ESTIMATED GFR IS NOT ylio=4576) ACCURATE CREATININE CLEARANCE IN PREDICTING GLOMERULAR FILTRATION RATE. ESTIMATED GFR IS NOT APPLICABLE FOR DIALYSIS PATIENTS. HEPATIC FUNCTION [id number] 05:36:00 Test Item Value Reference Range Comments TOTAL PROTEIN (BEAKER) (test zqbl=954) 6.3 gm/dL 6.0-8.3 ALBUMIN (BEAKER) (test bhtf=9061) 3.1 g/dL 3.5-5.0 BILIRUBIN TOTAL (BEAKER) (test yaro=264) 1.1 mg/dL 0.2-1.2 BILIRUBIN DIRECT (BEAKER) (test xcpx=594) 0.7 mg/dL 0.1-0.5 ALKALINE PHOSPHATASE (BEAKER) (test eznb=368) 54 U/L 40-150 AST (SGOT) (BEAKER) (test etbe=772) 23 U/L 5-34 ALT (SGPT) (BEAKER) (test stoy=678) 17 U/L 6-55 LACTATE DEHYDROGENASE (LDH)2017-07-25 05:36:00 Test Item Value Reference Range Comments LACTATE DEHYDROGENASE (BEAKER) (test rfmp=308) 695 U/L 125-220 POCT-GLUCOSE [id number] 05:24:00 Test Item Value Reference Range Comments POC-GLUCOSE METER (BEAKER) 102 mg/dL 70-110 TESTED AT [facility] [address] [facility] (test wmlt=5719) [facility] [address] RAD, CHEST, 1 VIEW, NON [id number] 04:43:00Reason for exam:-> impellaShould this be performed at the bedside?->YesFINAL REPORT Chest one view. Clinical history: impella Comparison: Chest radiograph 07/24/17 Technique: A single frontal view of the chest was obtained. Findings: Cardiomediastinal contours are unchanged. Endotracheal and feeding tubes as well as a right IJ Barnes-Jagdeep catheter are unchanged in position. There are patchy bibasilar opacities which may represent atelectasis and/or pneumonia. There is mild elevation of the left hemidiaphragm. There is no definite pleural effusionor pneumothorax. Signed: Alexia Ramirez MDReport Verified Date/Time: 07/25/2017 04:43:27 ReadingLocation: [facility] B1 C013T Transitional Reading Room [id number] 00:51:00 Test Item Value Reference Range Comments PHOSPHORUS (BEAKER) (test giki=979) 3.4 mg/dL 2.3-4.7 BASIC METABOLIC [id number] 00:51:00 Test Item Value Reference Range Comments SODIUM (BEAKER) (test 146 meq/L 136-145 sxfo=857) POTASSIUM (BEAKER) (test 4.0 meq/L 3.5-5.1 mzyo=375) CHLORIDE (BEAKER) (test 110 meq/L 98-107 damb=895) CO2 (BEAKER) (test 26 meq/L 22-29 jcup=842) BLOOD UREA NITROGEN 26 mg/dL 7-21 (BEAKER) (test xxro=592) CREATININE (BEAKER) (test 1.53 mg/dL 0.57-1.25 iqxu=170) GLUCOSE RANDOM (BEAKER) 105 mg/dL 70-105 (test rioa=435) CALCIUM (BEAKER) (test 8.8 mg/dL 8.4-10.2 uhmx=902) EGFR (BEAKER) (test 41 mL/min/1.73 sq m ESTIMATED GFR IS NOT stoi=2199) ACCURATE CREATININE CLEARANCE IN PREDICTING GLOMERULAR FILTRATION RATE. ESTIMATED GFR IS NOT APPLICABLE FOR DIALYSIS PATIENTS. POCT-GLUCOSE [id number] 00:32:00 Test Item Value Reference Range Comments POC-GLUCOSE METER (BEAKER) 119 mg/dL 70-110 TESTED AT [facility] [address] [facility] (test jktv=6368) [facility] [address] POCT-GLUCOSE [id number] 00:27:00 Test Item Value Reference Range Comments POC-GLUCOSE METER (BEAKER) 114 mg/dL 70-110 TESTED AT [facility] [address] [facility] (test yjqg=3499) [facility] [address] POCT-GLUCOSE [id number] 23:58:00 Test Item Value Reference Range Comments POC-GLUCOSE METER (BEAKER) 117 mg/dL 70-110 TESTED AT [facility] [address] [facility] (test bhuj=7220) [facility] [address] [id number] 21:24:00 Test Item Value Reference Range Comments MAGNESIUM (BEAKER) (test dwbl=436) 2.0 mg/dL 1.6-2.6 POCT-GLUCOSE [id number] 20:24:00 Test Item Value Reference Range Comments POC-GLUCOSE METER (BEAKER) 130 mg/dL 70-110 TESTED AT [address] (test oplv=5785) [facility] [address] [id number] 19:20:00 Test Item Value Reference Range Comments POTASSIUM (BEAKER) (test mxes=370) 3.6 meq/L 3.5-5.1 [id number] 19:20:00 Test Item Value Reference Range Comments GLUCOSE RANDOM (BEAKER) (test dfnm=149) 168 mg/dL 70-105 [id number] 18:01:00 Test Item Value Reference Range Comments PHOSPHORUS (BEAKER) (test efjb=484) 3.7 mg/dL 2.3-4.7 BASIC METABOLIC [id number] 18:01:00 Test Item Value Reference Range Comments SODIUM (BEAKER) (test 145 meq/L 136-145 lxot=852) POTASSIUM (BEAKER) (test 3.9 meq/L 3.5-5.1 axjz=451) CHLORIDE (BEAKER) (test 109 meq/L 98-107 fmzz=434) CO2 (BEAKER) (test 27 meq/L 22-29 alst=770) BLOOD UREA NITROGEN 26 mg/dL 7-21 (BEAKER) (test tzug=993) CREATININE (BEAKER) (test 1.47 mg/dL 0.57-1.25 twed=648) GLUCOSE RANDOM (BEAKER) 210 mg/dL 70-105 (test qkwl=286) CALCIUM (BEAKER) (test 8.5 mg/dL 8.4-10.2 aqbv=316) EGFR (BEAKER) (test 43 mL/min/1.73 sq m ESTIMATED GFR IS NOT ousv=4591) ACCURATE CREATININE CLEARANCE IN PREDICTING GLOMERULAR FILTRATION RATE. ESTIMATED GFR IS NOT APPLICABLE FOR DIALYSIS PATIENTS. GLUCOSE-STAT [id number] 17:14:00 Test Item Value Reference Range Comments GLUCOSE RANDOM (BEAKER) (test olxk=054) 208 mg/dL 70-110 BLOOD GAS, [id number] 17:13:00 Test Item Value Reference Range Comments PH ARTERIAL (BEAKER) (test masn=539) 7.44 7.35-7.45 PCO2 ARTERIAL (BEAKER) (test gghb=055) 43 mmHg 35-45 PO2 ARTERIAL (BEAKER) (test krgv=168) 58 mmHg 80-90 O2 SATURATION ARTERIAL (BEAKER) (test ryop=282) 90.8 % 96.0-97.0 HCO3 ARTERIAL (BEAKER) (test nvlu=543) 28 mmol/L 21-29 BASE EXCESS ARTERIAL (BEAKER) (test wucb=469) 3.9 mmol/L -2.0-3.0 PATIENT TEMPERATURE (BEAKER) (test htwj=0682) 37.0 C FIO2 (BEAKER) (test mkle=4336) 100.0 % RAD, CHEST, 1 VIEW, NON [id number] 14:00:00Reason for exam:->post intubationShould this be performed at the bedside?->YesFINAL REPORT AP chest. HISTORY: Endotracheal tube COMPARISON: 07/24/2017 IMPRESSION:Endotracheal tube projects deep in the trachea, approximately 1-2 cm above the level of the toro. Cardiomegaly similar to previous. Worsening aeration at the left lung base. Mild pulmonary vascular congestion. No pneumothorax. Signed: Mitchel Jarquin MDReport Verified Date/Time: 07/24/2017 14:00:17 Reading Location: [facility] C013Y CT Body Reading Room [id number] 13:40:00 Test Item Value Reference Range Comments PHOSPHORUS (BEAKER) (test mjlc=751) 4.3 mg/dL 2.3-4.7 [id number] 13:40:00 Test Item Value Reference Range Comments MAGNESIUM (BEAKER) (test vcoo=256) 2.0 mg/dL 1.6-2.6 BASIC METABOLIC [id number] 13:40:00 Test Item Value Reference Range Comments SODIUM (BEAKER) (test 145 meq/L 136-145 ddix=289) POTASSIUM (BEAKER) (test 3.9 meq/L 3.5-5.1 uqpw=471) CHLORIDE (BEAKER) (test 108 meq/L 98-107 qrbl=672) CO2 (BEAKER) (test 24 meq/L 22-29 idmh=804) BLOOD UREA NITROGEN 28 mg/dL 7-21 (BEAKER) (test nxzk=365) CREATININE (BEAKER) (test 1.43 mg/dL 0.57-1.25 cosr=452) GLUCOSE RANDOM (BEAKER) 206 mg/dL 70-105 (test ltrr=599) CALCIUM (BEAKER) (test 8.5 mg/dL 8.4-10.2 vimo=339) EGFR (BEAKER) (test 44 mL/min/1.73 sq m ESTIMATED GFR IS NOT ecdw=2509) ACCURATE CREATININE CLEARANCE IN PREDICTING GLOMERULAR FILTRATION RATE. ESTIMATED GFR IS NOT APPLICABLE FOR DIALYSIS PATIENTS. LACTIC ACID, ARTERIAL, WHOLE [id number] 13:36:00 Test Item Value Reference Range Comments LACTATE BLOOD ARTERIAL (2) (BEAKER) (test 0.7 mmol/L 0.5-2.2 lftr=9883) Effective 08/06/2015: Units/Reference Range ChangeNew: 0.5-2.2 mmol/L Previous: 5 -20 mg/dLCBC W/PLT COUNT & AUTO [id number] 13:24:00 Test Item Value Reference Range Comments WHITE BLOOD CELL COUNT (BEAKER) (test rayy=589) 10.5 K/ L 3.5-10.5 RED BLOOD CELL COUNT (BEAKER) (test mhfz=473) 2.70 M/ L 3.93-5.22 HEMOGLOBIN (BEAKER) (test fwsc=611) 8.1 GM/DL 11.2-15.7 HEMATOCRIT (BEAKER) (test fvrx=131) 27.0 % 34.1-44.9 MEAN CORPUSCULAR VOLUME (BEAKER) (test hrpn=744) 100.0 fL 79.4-94.8 MEAN CORPUSCULAR HEMOGLOBIN (BEAKER) (test 30.0 pg 25.6-32.2 imdf=089) MEAN CORPUSCULAR HEMOGLOBIN CONC (BEAKER) (test 30.0 GM/DL 32.2-35.5 qbpe=913) RED CELL DISTRIBUTION WIDTH (BEAKER) (test 14.9 % 11.7-14.4 wblm=389) PLATELET COUNT (BEAKER) (test pfzf=663) 117 K/CU MM 150-450 MEAN PLATELET VOLUME (BEAKER) (test khex=148) 10.9 fL 9.4-12.3 NUCLEATED RED BLOOD CELLS (BEAKER) (test 0 /100 WBC 0-0 zqar=879) NEUTROPHILS RELATIVE PERCENT (BEAKER) (test 78 % iezf=495) LYMPHOCYTES RELATIVE PERCENT (BEAKER) (test 10 % zjdl=867) MONOCYTES RELATIVE PERCENT (BEAKER) (test 10 % eamt=478) EOSINOPHILS RELATIVE PERCENT (BEAKER) (test 1 % bery=694) BASOPHILS RELATIVE PERCENT (BEAKER) (test 0 % zynq=192) NEUTROPHILS ABSOLUTE COUNT (BEAKER) (test 8.20 K/ L 1.56-6.13 cxjp=906) LYMPHOCYTES ABSOLUTE COUNT (BEAKER) (test 1.00 K/ L 1.18-3.74 qkkt=449) MONOCYTES ABSOLUTE COUNT (BEAKER) (test 1.06 K/ L 0.24-0.36 ibdq=798) EOSINOPHILS ABSOLUTE COUNT (BEAKER) (test 0.09 K/ L 0.04-0.36 rqcn=237) BASOPHILS ABSOLUTE COUNT (BEAKER) (test 0.04 K/ L 0.01-0.08 bkri=956) IMMATURE GRANULOCYTES-RELATIVE PERCENT (BEAKER) 1 % 0-1 (test ajrw=6371) OXYGEN SATURATION, [id number] 13:08:00 Test Item Value Reference Range Comments O2 SATURATION (MEASURED) (BEAKER) (test dqro=8180) 65.1 % PA catheter tipBLOOD GAS, [id number] 13:08:00 Test Item Value Reference Range Comments PH ARTERIAL (BEAKER) (test etby=561) 7.42 7.35-7.45 PCO2 ARTERIAL (BEAKER) (test rjov=160) 42 mmHg 35-45 PO2 ARTERIAL (BEAKER) (test ngbq=268) 239 mmHg 80-90 O2 SATURATION ARTERIAL (BEAKER) (test nbtd=698) 99.6 % 96.0-97.0 HCO3 ARTERIAL (BEAKER) (test pqwo=969) 27 mmol/L 21-29 BASE EXCESS ARTERIAL (BEAKER) (test ckuu=908) 2.1 mmol/L -2.0-3.0 PATIENT TEMPERATURE (BEAKER) (test hyby=4194) 36.6 C FIO2 (BEAKER) (test qzfn=7659) 100.0 % GLUCOSE-STAT [id number] 13:08:00 Test Item Value Reference Range Comments GLUCOSE RANDOM (BEAKER) (test sesa=214) 194 mg/dL 70-110 HGB/HCT (H&H) - STAT [id number] 13:08:00 Test Item Value Reference Range Comments HEMOGLOBIN (BEAKER) (test ydaf=257) 8.8 g/dL 12.0-15.0 HEMATOCRIT (BEAKER) (test xojh=142) 26.0 % 36.0-45.0 CALCIUM, [id number] 13:08:00 Test Item Value Reference Range Comments CALCIUM IONIZED (BEAKER) (test rugf=086) 1.08 mmol/L 1.12-1.27 PH, BLOOD (BEAKER) (test yaoy=2893) 7.41 SODIUM NA-STAT [id number] 13:07:00 Test Item Value Reference Range Comments SODIUM (BEAKER) (test yqjb=335) 140 meq/L 135-148 POTASSIUM-STAT [id number] 13:07:00 Test Item Value Reference Range Comments POTASSIUM (BEAKER) (test dhtu=002) 3.7 meq/L 3.6-5.5 SODIUM NA-STAT [id number] 11:39:00 Test Item Value Reference Range Comments SODIUM (BEAKER) (test gaqe=753) 141 meq/L 135-148 POTASSIUM-STAT [id number] 11:39:00 Test Item Value Reference Range Comments POTASSIUM (BEAKER) (test yyae=314) 3.6 meq/L 3.6-5.5 BLOOD GAS, [id number] 11:39:00 Test Item Value Reference Range Comments PH ARTERIAL (BEAKER) (test drqe=263) 7.44 7.35-7.45 PCO2 ARTERIAL (BEAKER) (test buuh=248) 42 mmHg 35-45 PO2 ARTERIAL (BEAKER) (test lsfy=075) 234 mmHg 80-90 O2 SATURATION ARTERIAL (BEAKER) (test xvbb=194) 99.6 % 96.0-97.0 HCO3 ARTERIAL (BEAKER) (test ogxb=930) 28 mmol/L 21-29 BASE EXCESS ARTERIAL (BEAKER) (test rouc=952) 3.4 mmol/L -2.0-3.0 PATIENT TEMPERATURE (BEAKER) (test ythc=2605) 36.8 C FIO2 (BEAKER) (test rwqm=1128) 86.0 % GLUCOSE-STAT [id number] 11:39:00 Test Item Value Reference Range Comments GLUCOSE RANDOM (BEAKER) (test zyzz=401) 194 mg/dL 70-110 HGB/HCT (H&H) - STAT [id number] 11:39:00 Test Item Value Reference Range Comments HEMOGLOBIN (BEAKER) (test lzok=080) 8.8 g/dL 12.0-15.0 HEMATOCRIT (BEAKER) (test yggo=354) 26.0 % 36.0-45.0 CALCIUM, [id number] 11:39:00 Test Item Value Reference Range Comments CALCIUM IONIZED (BEAKER) (test uaac=226) 1.06 mmol/L 1.12-1.27 PH, BLOOD (BEAKER) (test wnim=8064) 7.44 BLOOD GAS, [id number] 10:56:00 Test Item Value Reference Range Comments PH ARTERIAL (BEAKER) (test vxhy=238) 7.43 7.35-7.45 PCO2 ARTERIAL (BEAKER) (test xsoz=521) 46 mmHg 35-45 PO2 ARTERIAL (BEAKER) (test qkst=955) 223 mmHg 80-90 O2 SATURATION ARTERIAL (BEAKER) (test zlxj=837) 99.5 % 96.0-97.0 HCO3 ARTERIAL (BEAKER) (test odbz=901) 30 mmol/L 21-29 BASE EXCESS ARTERIAL (BEAKER) (test dbmp=202) 4.6 mmol/L -2.0-3.0 PATIENT TEMPERATURE (BEAKER) (test dzbi=3236) 37.0 C FIO2 (BEAKER) (test gxdh=9327) 100.0 % GLUCOSE-STAT [id number] 10:56:00 Test Item Value Reference Range Comments GLUCOSE RANDOM (BEAKER) (test yfpc=098) 190 mg/dL 70-110 HGB/HCT (H&H) - STAT [id number] 10:56:00 Test Item Value Reference Range Comments HEMOGLOBIN (BEAKER) (test adlu=211) 8.7 g/dL 12.0-15.0 HEMATOCRIT (BEAKER) (test ngnd=993) 26.0 % 36.0-45.0 SODIUM NA-STAT [id number] 10:55:00 Test Item Value Reference Range Comments SODIUM (BEAKER) (test alba=005) 142 meq/L 135-148 POTASSIUM-STAT [id number] 10:55:00 Test Item Value Reference Range Comments POTASSIUM (BEAKER) (test kipt=366) 3.5 meq/L 3.6-5.5 [id number] 08:41:00 Test Item Value Reference Range Comments MAGNESIUM (BEAKER) (test dyzk=778) 2.0 mg/dL 1.6-2.6 BLOOD GAS, [id number] 07:57:00 Test Item Value Reference Range Comments PH ARTERIAL (BEAKER) (test rjaw=996) 7.48 7.35-7.45 PCO2 ARTERIAL (BEAKER) (test iixf=432) 37 mmHg 35-45 PO2 ARTERIAL (BEAKER) (test fhid=531) 71 mmHg 80-90 O2 SATURATION ARTERIAL (BEAKER) (test cgdj=344) 94.8 % 96.0-97.0 HCO3 ARTERIAL (BEAKER) (test dylg=586) 27 mmol/L 21-29 BASE EXCESS ARTERIAL (BEAKER) (test wxap=552) 3.5 mmol/L -2.0-3.0 PATIENT TEMPERATURE (BEAKER) (test nwwe=8054) 37.8 C FIO2 (BEAKER) (test qtcp=8163) 32.0 % POCT-GLUCOSE [id number] 07:50:00 Test Item Value Reference Range Comments POC-GLUCOSE METER (BEAKER) 246 mg/dL 70-110 TESTED AT [facility] [address] [facility] (test znnl=8519) [facility] [address] RAD, CHEST, 1 VIEW, NON [id number] 04:54:00Reason for exam:-> impellaShould this be performed at the bedside?->YesFINAL REPORT CLINICAL INDICATION: Support lines. Comparison: 07/23/2017 The cardiomediastinal contours are stable. Central pulmonary vascular prominence and bilateral parenchymalopacities are similar to previous. There is no pneumothorax. Support lines are stable. Signed: Adelso Sorensen MDReport Verified Date/Time: 07/24/2017 04:54:08 Reading Location: [address] Reading Room POCT-GLUCOSE [id number] 04:08:00 Test Item Value Reference Range Comments POC-GLUCOSE METER (BEAKER) 137 mg/dL 70-110 TESTED AT [facility] [address] [facility] (test uvwf=6051) [facility] [address] [id number] 03:02:00 Test Item Value Reference Range Comments PHOSPHORUS (BEAKER) (test ctfx=221) 3.7 mg/dL 2.3-4.7 [id number] 03:02:00 Test Item Value Reference Range Comments MAGNESIUM (BEAKER) (test vfoz=670) 2.3 mg/dL 1.6-2.6 BASIC METABOLIC [id number] 03:02:00 Test Item Value Reference Range Comments SODIUM (BEAKER) (test 145 meq/L 136-145 vggw=751) POTASSIUM (BEAKER) (test 4.0 meq/L 3.5-5.1 ubmy=762) CHLORIDE (BEAKER) (test 106 meq/L 98-107 segm=621) CO2 (BEAKER) (test 26 meq/L 22-29 xugt=114) BLOOD UREA NITROGEN 26 mg/dL 7-21 (BEAKER) (test wixy=094) CREATININE (BEAKER) (test 1.47 mg/dL 0.57-1.25 yujz=357) GLUCOSE RANDOM (BEAKER) 141 mg/dL 70-105 (test wsvu=965) CALCIUM (BEAKER) (test 9.0 mg/dL 8.4-10.2 dcno=471) EGFR (BEAKER) (test 43 mL/min/1.73 sq m ESTIMATED GFR IS NOT folo=1231) ACCURATE CREATININE CLEARANCE IN PREDICTING GLOMERULAR FILTRATION RATE. ESTIMATED GFR IS NOT APPLICABLE FOR DIALYSIS PATIENTS. HEPATIC FUNCTION [id number] 03:02:00 Test Item Value Reference Range Comments TOTAL PROTEIN (BEAKER) (test kald=860) 6.6 gm/dL 6.0-8.3 ALBUMIN (BEAKER) (test ebkx=8408) 3.2 g/dL 3.5-5.0 BILIRUBIN TOTAL (BEAKER) (test zvxc=704) 1.2 mg/dL 0.2-1.2 BILIRUBIN DIRECT (BEAKER) (test lecz=115) 0.6 mg/dL 0.1-0.5 ALKALINE PHOSPHATASE (BEAKER) (test dblv=481) 55 U/L 40-150 AST (SGOT) (BEAKER) (test xnjw=650) 33 U/L 5-34 ALT (SGPT) (BEAKER) (test psnu=294) 25 U/L 6-55 LACTATE DEHYDROGENASE (LDH)2017-07-24 03:02:00 Test Item Value Reference Range Comments LACTATE DEHYDROGENASE (BEAKER) (test dkzh=288) 879 U/L 125-220 CBC W/PLT COUNT & AUTO [id number] 02:53:00 Test Item Value Reference Range Comments WHITE BLOOD CELL COUNT (BEAKER) (test cjnx=617) 12.6 K/ L 3.5-10.5 RED BLOOD CELL COUNT (BEAKER) (test drug=562) 2.93 M/ L 3.93-5.22 HEMOGLOBIN (BEAKER) (test ruob=593) 8.7 GM/DL 11.2-15.7 HEMATOCRIT (BEAKER) (test upru=765) 28.3 % 34.1-44.9 MEAN CORPUSCULAR VOLUME (BEAKER) (test djbg=354) 96.6 fL 79.4-94.8 MEAN CORPUSCULAR HEMOGLOBIN (BEAKER) (test 29.7 pg 25.6-32.2 hzxi=619) MEAN CORPUSCULAR HEMOGLOBIN CONC (BEAKER) (test 30.7 GM/DL 32.2-35.5 dnpn=765) RED CELL DISTRIBUTION WIDTH (BEAKER) (test 14.7 % 11.7-14.4 waun=754) PLATELET COUNT (BEAKER) (test tcqy=827) 126 K/CU MM 150-450 MEAN PLATELET VOLUME (BEAKER) (test fkay=560) 11.0 fL 9.4-12.3 NUCLEATED RED BLOOD CELLS (BEAKER) (test 0 /100 WBC 0-0 gzft=031) NEUTROPHILS RELATIVE PERCENT (BEAKER) (test 78 % egxp=357) LYMPHOCYTES RELATIVE PERCENT (BEAKER) (test 10 % cpvo=887) MONOCYTES RELATIVE PERCENT (BEAKER) (test 10 % yvme=364) EOSINOPHILS RELATIVE PERCENT (BEAKER) (test 1 % mymx=375) BASOPHILS RELATIVE PERCENT (BEAKER) (test 0 % bufx=460) NEUTROPHILS ABSOLUTE COUNT (BEAKER) (test 9.85 K/ L 1.56-6.13 rclc=340) LYMPHOCYTES ABSOLUTE COUNT (BEAKER) (test 1.27 K/ L 1.18-3.74 hnlk=383) MONOCYTES ABSOLUTE COUNT (BEAKER) (test 1.25 K/ L 0.24-0.36 quau=871) EOSINOPHILS ABSOLUTE COUNT (BEAKER) (test 0.10 K/ L 0.04-0.36 obkt=588) BASOPHILS ABSOLUTE COUNT (BEAKER) (test 0.05 K/ L 0.01-0.08 yznz=253) IMMATURE GRANULOCYTES-RELATIVE PERCENT (BEAKER) 1 % 0-1 (test vofr=5830) [id number] 02:50:00 Test Item Value Reference Range Comments PROTIME (BEAKER) (test ifpt=419) 16.7 seconds 11.7-14.7 INR (BEAKER) (test zipx=777) 1.4 <=5.9 PARTIAL THROMBOPLASTIN TIME (BEAKER) (test 78.5 seconds 22.5-36.0 ifho=740) RECOMMENDED COUMADIN/WARFARIN INR THERAPY RANGESSTANDARD DOSE: 2.0 - 3.0 Includes: PROPHYLAXIS forvenous thrombosis, systemic embolization; TREATMENT for venous thrombosis and/or pulmonary embolus.HIGH RISK: Target INR is 2.5-3.5 for patients with mechanical heart valves.BLOOD [id number] 00:00:00 Test Item Value Reference Range Comments CULTURE (BEAKER) (test uqvt=3749) No growth in 5 days BLOOD [id number] 00:00:00 Test Item Value Reference Range Comments CULTURE (BEAKER) (test hgce=1383) No growth in 5 days [id number] 22:01:00 Test Item Value Reference Range Comments MAGNESIUM (BEAKER) (test hobk=261) 2.0 mg/dL 1.6-2.6 POCT-GLUCOSE [id number] 19:39:00 Test Item Value Reference Range Comments POC-GLUCOSE METER (BEAKER) 135 mg/dL 70-110 TESTED AT [facility] [address] [facility] (test qmwn=4610) [facility] [address] BASIC METABOLIC [id number] 19:08:00 Test Item Value Reference Range Comments SODIUM (BEAKER) (test 145 meq/L 136-145 osfo=588) POTASSIUM (BEAKER) (test 3.9 meq/L 3.5-5.1 wgso=664) CHLORIDE (BEAKER) (test 106 meq/L 98-107 wgtb=433) CO2 (BEAKER) (test 28 meq/L 22-29 xosk=559) BLOOD UREA NITROGEN 26 mg/dL 7-21 (BEAKER) (test gvwp=854) CREATININE (BEAKER) (test 1.45 mg/dL 0.57-1.25 amvx=621) GLUCOSE RANDOM (BEAKER) 119 mg/dL 70-105 (test hzrz=460) CALCIUM (BEAKER) (test 9.2 mg/dL 8.4-10.2 zxsv=395) EGFR (BEAKER) (test 43 mL/min/1.73 sq m ESTIMATED GFR IS NOT fvtp=4545) ACCURATE CREATININE CLEARANCE IN PREDICTING GLOMERULAR FILTRATION RATE. ESTIMATED GFR IS NOT APPLICABLE FOR DIALYSIS PATIENTS. [id number] 19:06:00 Test Item Value Reference Range Comments PHOSPHORUS (BEAKER) (test jbud=235) 3.7 mg/dL 2.3-4.7 VANCOMYCIN LEVEL, [id number] 16:33:00 Test Item Value Reference Range Comments VANCOMYCIN TROUGH (BEAKER) (test qlgh=809) 17.8 ug/mL 10.0-20.0 If vancomycin trough level > 20 mcg/mL, hold next vancomycin dose, and contact MD and pharmacist.VARICELLA ZOSTER ANTIBODY, [id number] 14:47:00 Test Item Value Reference Range Comments VARICELLA ZOSTER IGG (AL) (BEAKER) (test yedl=8937) 2.3 Al VARICELLA ZOSTER RESULT INTERPRETATIONS: <=0.8 Al Nonreactive: Presumed non-immune to VZV 0.9-1.0 Al Equivocal >=1.1 Al Reactive: Presumed immune to VZVCYTOMEGALOVIRUS ANTIBODY, [id number] 14:46:00 Test Item Value Reference Range Comments CYTOMEGALOVIRUS IGG ANTIBODY (BEAKER) (test Negative cegc=880) CYTOMEGALOVIRUS ANTIBODY, [id number] 14:46:00 Test Item Value Reference Range Comments CYTOMEGALOVIRUS IGM ANTIBODY (BEAKER) (test Negative jpny=454) EBV-VCA ANTIBODY, [id number] 14:46:00 Test Item Value Reference Range Comments MARIO-CARMEN VCA IGG (BEAKER) (test gkuy=234) Positive EBV-VCA ANTIBODY, [id number] 14:46:00 Test Item Value Reference Range Comments MARIO-CARMEN VCA IGM (BEAKER) (test biwh=359) Negative HERPES VIRUS ANTIBODY, [id number] 14:45:00 Test Item Value Reference Range Comments HERPES VIRUS IGG (BEAKER) (test ecrd=0006) Negative HSV IgG 1=NEGATIVEHSV IgG 2=NEGATIVETOXOPLASMA GONDII ANTIBODY, [id number] 14 :45:00 Test Item Value Reference Range Comments TOXOPLASMA GONDII IGG (BEAKER) (test aldq=692) Negative [id number] 14:37:00 Test Item Value Reference Range Comments PARTIAL THROMBOPLASTIN TIME (BEAKER) (test 69.5 seconds 22.5-36.0 clgd=945) OCCULT BLOOD, [id number] 14:34:00 Test Item Value Reference Range Comments FECAL OCCULT BLOOD (BEAKER) (test fpdr=651) Negative Negative POCT-GLUCOSE [id number] 14:20:00 Test Item Value Reference Range Comments POC-GLUCOSE METER (BEAKER) 166 mg/dL 70-110 TESTED AT [address] (test osmi=7654) [facility] [address] POCT-GLUCOSE [id number] 14:20:00 Test Item Value Reference Range Comments POC-GLUCOSE METER (BEAKER) 82 mg/dL 70-110 TESTED AT [address] (test gnfp=0669) [facility] [address] [id number] 13:00:00 Test Item Value Reference Range Comments PHOSPHORUS (BEAKER) (test kbmp=256) 3.2 mg/dL 2.3-4.7 BASIC METABOLIC [id number] 13:00:00 Test Item Value Reference Range Comments SODIUM (BEAKER) (test 143 meq/L 136-145 repe=432) POTASSIUM (BEAKER) (test 3.8 meq/L 3.5-5.1 iaek=701) CHLORIDE (BEAKER) (test 104 meq/L 98-107 tbnh=357) CO2 (BEAKER) (test 29 meq/L 22-29 axox=637) BLOOD UREA NITROGEN 28 mg/dL 7-21 (BEAKER) (test dnvm=678) CREATININE (BEAKER) (test 1.44 mg/dL 0.57-1.25 giow=555) GLUCOSE RANDOM (BEAKER) 171 mg/dL 70-105 (test khtg=299) CALCIUM (BEAKER) (test 9.1 mg/dL 8.4-10.2 njsj=819) EGFR (BEAKER) (test 44 mL/min/1.73 sq m ESTIMATED GFR IS NOT daiw=2051) ACCURATE CREATININE CLEARANCE IN PREDICTING GLOMERULAR FILTRATION RATE. ESTIMATED GFR IS NOT APPLICABLE FOR DIALYSIS PATIENTS. POCT-GLUCOSE [id number] 12:29:00 Test Item Value Reference Range Comments POC-GLUCOSE METER (BEAKER) 179 mg/dL 70-110 TESTED AT [facility] [address] [place] [address] (test ezzr=6471) [facility] [address] CREATININE [id number] 11:15:00 Test Item Value Reference Range Comments CREATININE CLEARANCE (BEAKER) 45.8 mL/min 70.0-140.0 (test xlei=738) VOLUME, TOTAL (BEAKER) (test 3400 ml efeo=8402) CREATININE URINE (BEAKER) (test 36.8 mg/dL rqbz=332) [id number] (BEAKER) Анна Encarnacion MD (test jwfj=1464) (electronic signature) PATIENT HEIGHT (CM) (BEAKER) 165.1 cm (test lbcr=5032) PATIENT WEIGHT (KG) (BEAKER) 84.100 kg (test rbef=6392) [id number] 09:15:00 Test Item Value Reference Range Comments POTASSIUM (BEAKER) (test zrev=968) 4.1 meq/L 3.5-5.1 PRN - repeat potassium levels every 1 hour until glucose level is less than 450 mg/[id number] 09:15:00 Test Item Value Reference Range Comments MAGNESIUM (BEAKER) (test qllk=531) 2.4 mg/dL 1.6-2.6 PRN - repeat potassium levels every 1 hour until glucose level is less than 450 mg/dLPOCT-GLUCOSE [id number] 08:47:00 Test Item Value Reference Range Comments POC-GLUCOSE METER (BEAKER) 155 mg/dL 70-110 TESTED AT [address] (test egjy=3607) [facility] [address] POCT-GLUCOSE [id number] 06:12:00 Test Item Value Reference Range Comments POC-GLUCOSE METER (BEAKER) 143 mg/dL 70-110 TESTED AT [address] (test jlrg=4825) [facility] [address] POCT-GLUCOSE [id number] 06:12:00 Test Item Value Reference Range Comments POC-GLUCOSE METER (BEAKER) 123 mg/dL 70-110 TESTED AT [address] (test qdpg=6151) [facility] [address] RAD, CHEST, 1 VIEW, NON [id number] 05:36:00Reason for exam:->respiratory insufficiencyFINAL REPORT Chest one view. Clinical history: respiratory insufficiency Comparison: Chest radiograph 07/22/2017 Technique: A single frontal view of the chest was obtained. Findings: Cardiomediastinal contours are unchanged. There is a right IJ Barnes-Jagdeep catheter, with tip inthe right pulmonary artery. [...] in the mid abdomen. Signed: Alexia Ramirez MDReport Verified Date/Time: 07/23/2017 05:36:35 Reading Location: [facility] [id number] Reading Room CALCIUM, [id number] 05:19:00 Test Item Value Reference Range Comments CALCIUM IONIZED (BEAKER) (test pcbi=060) 1.12 mmol/L 1.12-1.27 PH, BLOOD (BEAKER) (test yuvk=3012) 7.40 OXYGEN SATURATION, [id number] 05:18:00 Test Item Value Reference Range Comments O2 SATURATION (MEASURED) (BEAKER) (test bnho=9878) 63.1 % POCT-GLUCOSE [id number] 05:05:00 Test Item Value Reference Range Comments POC-GLUCOSE METER (BEAKER) 131 mg/dL 70-110 TESTED AT [facility] [address] [facility] (test scgf=7362) [facility] [address] BLOOD GAS, [id number] 04:58:00 Test Item Value Reference Range Comments PH ARTERIAL (BEAKER) (test uxld=286) 7.41 7.35-7.45 PCO2 ARTERIAL (BEAKER) (test mvhk=556) 51 mmHg 35-45 PO2 ARTERIAL (BEAKER) (test cwvq=884) 93 mmHg 80-90 O2 SATURATION ARTERIAL (BEAKER) (test pvab=147) 96.9 % 96.0-97.0 HCO3 ARTERIAL (BEAKER) (test wmdf=186) 31 mmol/L 21-29 BASE EXCESS ARTERIAL (BEAKER) (test erae=341) 5.9 mmol/L -2.0-3.0 PATIENT TEMPERATURE (BEAKER) (test apkn=8478) 37.4 C FIO2 (BEAKER) (test sprn=8162) 70.0 % [id number] 03:35:00 Test Item Value Reference Range Comments PARTIAL THROMBOPLASTIN TIME (BEAKER) (test 70.8 seconds 22.5-36.0 ofyb=472) [id number] 03:34:00 Test Item Value Reference Range Comments PHOSPHORUS (BEAKER) (test aqvl=800) 3.0 mg/dL 2.3-4.7 [id number] 03:34:00 Test Item Value Reference Range Comments MAGNESIUM (BEAKER) (test dbeb=352) 2.1 mg/dL 1.6-2.6 BASIC METABOLIC [id number] 03:34:00 Test Item Value Reference Range Comments SODIUM (BEAKER) (test 144 meq/L 136-145 dhdp=662) POTASSIUM (BEAKER) (test 3.9 meq/L 3.5-5.1 moxr=299) CHLORIDE (BEAKER) (test 105 meq/L 98-107 huuq=398) CO2 (BEAKER) (test 29 meq/L 22-29 bmqt=786) BLOOD UREA NITROGEN 29 mg/dL 7-21 (BEAKER) (test qryi=823) CREATININE (BEAKER) (test 1.54 mg/dL 0.57-1.25 flmy=841) GLUCOSE RANDOM (BEAKER) 119 mg/dL 70-105 (test xhma=547) CALCIUM (BEAKER) (test 9.1 mg/dL 8.4-10.2 zaeq=801) EGFR (BEAKER) (test 40 mL/min/1.73 sq m ESTIMATED GFR IS NOT oghr=4213) ACCURATE CREATININE CLEARANCE IN PREDICTING GLOMERULAR FILTRATION RATE. ESTIMATED GFR IS NOT APPLICABLE FOR DIALYSIS PATIENTS. HEPATIC FUNCTION [id number] 03:34:00 Test Item Value Reference Range Comments TOTAL PROTEIN (BEAKER) (test tepl=481) 6.7 gm/dL 6.0-8.3 ALBUMIN (BEAKER) (test hjwe=6801) 3.3 g/dL 3.5-5.0 BILIRUBIN TOTAL (BEAKER) (test sohp=791) 1.2 mg/dL 0.2-1.2 BILIRUBIN DIRECT (BEAKER) (test jwka=332) 0.6 mg/dL 0.1-0.5 ALKALINE PHOSPHATASE (BEAKER) (test ejgz=347) 51 U/L 40-150 AST (SGOT) (BEAKER) (test lriu=545) 48 U/L 5-34 ALT (SGPT) (BEAKER) (test sysk=465) 29 U/L 6-55 LACTATE DEHYDROGENASE (LDH)2017-07-23 03:34:00 Test Item Value Reference Range Comments LACTATE DEHYDROGENASE (BEAKER) (test txgp=850) 1020 U/L 125-220 CBC W/PLT COUNT & AUTO [id number] 03:25:00 Test Item Value Reference Range Comments WHITE BLOOD CELL COUNT (BEAKER) (test brwn=976) 11.7 K/ L 3.5-10.5 RED BLOOD CELL COUNT (BEAKER) (test bkel=866) 3.01 M/ L 3.93-5.22 HEMOGLOBIN (BEAKER) (test pdvq=639) 9.0 GM/DL 11.2-15.7 HEMATOCRIT (BEAKER) (test hcmn=624) 28.9 % 34.1-44.9 MEAN CORPUSCULAR VOLUME (BEAKER) (test oekz=720) 96.0 fL 79.4-94.8 MEAN CORPUSCULAR HEMOGLOBIN (BEAKER) (test 29.9 pg 25.6-32.2 njqj=997) MEAN CORPUSCULAR HEMOGLOBIN CONC (BEAKER) (test 31.1 GM/DL 32.2-35.5 ygsr=910) RED CELL DISTRIBUTION WIDTH (BEAKER) (test 15.0 % 11.7-14.4 ghre=329) PLATELET COUNT (BEAKER) (test rlmq=403) 128 K/CU MM 150-450 MEAN PLATELET VOLUME (BEAKER) (test iwuk=595) 11.3 fL 9.4-12.3 NUCLEATED RED BLOOD CELLS (BEAKER) (test 0 /100 WBC 0-0 okzt=026) NEUTROPHILS RELATIVE PERCENT (BEAKER) (test 78 % kxfw=701) LYMPHOCYTES RELATIVE PERCENT (BEAKER) (test 11 % zfnq=635) MONOCYTES RELATIVE PERCENT (BEAKER) (test 10 % alcj=327) EOSINOPHILS RELATIVE PERCENT (BEAKER) (test 1 % plkb=229) BASOPHILS RELATIVE PERCENT (BEAKER) (test 0 % qdvu=709) NEUTROPHILS ABSOLUTE COUNT (BEAKER) (test 9.07 K/ L 1.56-6.13 cywj=992) LYMPHOCYTES ABSOLUTE COUNT (BEAKER) (test 1.25 K/ L 1.18-3.74 eryj=882) MONOCYTES ABSOLUTE COUNT (BEAKER) (test 1.12 K/ L 0.24-0.36 crjl=208) EOSINOPHILS ABSOLUTE COUNT (BEAKER) (test 0.12 K/ L 0.04-0.36 dkas=794) BASOPHILS ABSOLUTE COUNT (BEAKER) (test 0.05 K/ L 0.01-0.08 twml=553) IMMATURE GRANULOCYTES-RELATIVE PERCENT (BEAKER) 1 % 0-1 (test zdyv=0106) POCT-GLUCOSE [id number] 03:09:00 Test Item Value Reference Range Comments POC-GLUCOSE METER (BEAKER) 114 mg/dL 70-110 TESTED AT [facility] [address] [facility] (test jafz=4512) [facility] [address] POCT-GLUCOSE [id number] 03:09:00 Test Item Value Reference Range Comments POC-GLUCOSE METER (BEAKER) 122 mg/dL 70-110 TESTED AT [address] (test etke=3161) [facility] [address] BASIC METABOLIC [id number] 00:32:00 Test Item Value Reference Range Comments SODIUM (BEAKER) (test 144 meq/L 136-145 zhyt=992) POTASSIUM (BEAKER) (test 4.2 meq/L 3.5-5.1 ktak=073) CHLORIDE (BEAKER) (test 105 meq/L 98-107 codv=096) CO2 (BEAKER) (test 28 meq/L 22-29 rapu=649) BLOOD UREA NITROGEN 30 mg/dL 7-21 (BEAKER) (test xftv=151) CREATININE (BEAKER) (test 1.56 mg/dL 0.57-1.25 oizv=393) GLUCOSE RANDOM (BEAKER) 131 mg/dL 70-105 (test zjfc=752) CALCIUM (BEAKER) (test 9.0 mg/dL 8.4-10.2 mlaa=840) EGFR (BEAKER) (test 40 mL/min/1.73 sq m ESTIMATED GFR IS NOT fhla=5839) ACCURATE CREATININE CLEARANCE IN PREDICTING GLOMERULAR FILTRATION RATE. ESTIMATED GFR IS NOT APPLICABLE FOR DIALYSIS PATIENTS. [id number] 00:31:00 Test Item Value Reference Range Comments PHOSPHORUS (BEAKER) (test nbwh=100) 3.4 mg/dL 2.3-4.7 POCT-GLUCOSE [id number] 00:10:00 Test Item Value Reference Range Comments POC-GLUCOSE METER (BEAKER) 140 mg/dL 70-110 TESTED AT [address] (test dbfo=1295) [facility] [address] POCT-GLUCOSE [id number] 00:08:00 Test Item Value Reference Range Comments POC-GLUCOSE METER (BEAKER) 121 mg/dL 70-110 TESTED AT [address] (test bbtc=0108) [facility] [address] POCT-GLUCOSE [id number] 00:08:00 Test Item Value Reference Range Comments POC-GLUCOSE METER (BEAKER) 112 mg/dL 70-110 TESTED AT [address] (test jcbt=6623) [facility] [address] POCT-GLUCOSE [id number] 00:08:00 Test Item Value Reference Range Comments POC-GLUCOSE METER (BEAKER) 84 mg/dL 70-110 TESTED AT [facility] [address] [facility] (test ybto=2105) [facility] [address] BASIC METABOLIC [id number] 20:36:00 Test Item Value Reference Range Comments SODIUM (BEAKER) (test 145 meq/L 136-145 rdqa=728) POTASSIUM (BEAKER) (test 3.6 meq/L 3.5-5.1 jpee=240) CHLORIDE (BEAKER) (test 106 meq/L 98-107 ghhy=101) CO2 (BEAKER) (test 31 meq/L 22-29 yybg=267) BLOOD UREA NITROGEN 32 mg/dL 7-21 (BEAKER) (test ksgb=463) CREATININE (BEAKER) (test 1.56 mg/dL 0.57-1.25 hhnb=226) GLUCOSE RANDOM (BEAKER) 85 mg/dL 70-105 (test bepk=413) CALCIUM (BEAKER) (test 9.0 mg/dL 8.4-10.2 fwmi=766) EGFR (BEAKER) (test 40 mL/min/1.73 sq m ESTIMATED GFR IS NOT zymw=8883) ACCURATE CREATININE CLEARANCE IN PREDICTING GLOMERULAR FILTRATION RATE. ESTIMATED GFR IS NOT APPLICABLE FOR DIALYSIS PATIENTS. [id number] 20:36:00 Test Item Value Reference Range Comments MAGNESIUM (BEAKER) (test lwxl=709) 2.4 mg/dL 1.6-2.6 [id number] 18:26:00 Test Item Value Reference Range Comments PHOSPHORUS (BEAKER) (test xsfa=732) 2.4 mg/dL 2.3-4.7 BASIC METABOLIC [id number] 18:26:00 Test Item Value Reference Range Comments SODIUM (BEAKER) (test 144 meq/L 136-145 fcrc=882) POTASSIUM (BEAKER) (test 3.9 meq/L 3.5-5.1 lpiz=402) CHLORIDE (BEAKER) (test 106 meq/L 98-107 xaey=487) CO2 (BEAKER) (test 30 meq/L 22-29 okve=788) BLOOD UREA NITROGEN 32 mg/dL 7-21 (BEAKER) (test krnh=610) CREATININE (BEAKER) (test 1.67 mg/dL 0.57-1.25 fxpy=562) GLUCOSE RANDOM (BEAKER) 141 mg/dL 70-105 (test opmn=172) CALCIUM (BEAKER) (test 9.1 mg/dL 8.4-10.2 skvt=982) EGFR (BEAKER) (test 37 mL/min/1.73 sq m ESTIMATED GFR IS NOT khff=3269) ACCURATE CREATININE CLEARANCE IN PREDICTING GLOMERULAR FILTRATION RATE. ESTIMATED GFR IS NOT APPLICABLE FOR DIALYSIS PATIENTS. LACTIC ACID, ARTERIAL, WHOLE [id number] 18:22:00 Test Item Value Reference Range Comments LACTATE BLOOD ARTERIAL (2) (BEAKER) (test 1.0 mmol/L 0.5-2.2 vfql=4174) Effective 08/06/2015: Units/Reference Range ChangeNew: 0.5-2.2 mmol/L Previous: 5 -20 mg/dLPOCT-GLUCOSE [id number] 17:56:00 Test Item Value Reference Range Comments POC-GLUCOSE METER (BEAKER) 138 mg/dL 70-110 TESTED AT [address] (test imew=3779) [place] [address] [id number] 16:19:00 Test Item Value Reference Range Comments POTASSIUM (BEAKER) (test brrz=952) 3.8 meq/L 3.5-5.1 PRN - repeat potassium levels every 1 hour until glucose level is less than 450 mg/[id number] 16:06:00 Test Item Value Reference Range Comments PARTIAL THROMBOPLASTIN TIME (BEAKER) (test 71.3 seconds 22.5-36.0 thxz=130) OXYGEN SATURATION, [id number] 15:58:00 Test Item Value Reference Range Comments O2 SATURATION (MEASURED) (BEAKER) (test knae=0622) 58.6 % calibrationPOCT-GLUCOSE [id number] 15:51:00 Test Item Value Reference Range Comments POC-GLUCOSE METER (BEAKER) 147 mg/dL 70-110 TESTED AT [address] (test mlpn=3506) [place] [address] RAD, CHEST, 1 VIEW, NON [id number] 14:57:00Reason for exam:->s/p CVC placement Should this be performed at the bedside?->YesFINAL REPORT TECHNIQUE: Frontal chest radiograph dated 07/22/2017. CLINICAL HISTORY: CVC placement COMPARISON STUDY: Chest radiograph performed earlier the same day. IMPRESSION:There has been interval placement of a right-sided Barnes- Jagdeep catheter with the tip in the main pulmonary artery. Impella device is unchanged in appearance. There is left lung base atelectasis. No pleural effusion or pneumothorax. Cardiomediastinal silhouette is normal in size. No pulmonary edema. Bonesare osteopenic. No fracture. Signed: Dawson Noeleport Verified Date/Time: 07/22/2017 14:57:48 Reading Location: [facility] Radiology Reading Room PROTEIN ELECTROPHORESIS, [id number] 14:45:00 Test Item Value Reference Range Comments ALBUMIN FRACTION (BEAKER) 3.0 g/dL 3.5-5.5 (test hzjo=160) ALPHA 1 FRACTION (BEAKER) 0.4 g/dL 0.2-0.4 (test qlrd=036) ALPHA 2 FRACTION (BEAKER) 0.5 g/dL 0.5-0.9 (test rypv=598) BETA FRACTION (BEAKER) (test 1.0 g/dL 0.6-1.1 faop=661) GAMMA GLOBULIN FRACTION 1.2 g/dL 0.7-1.7 (BEAKER) (test ovlm=616) INTERPRETATION-119 (BEAKER) Albumin decreased. Alpha (test mbjo=1775) globulin percentages increased. This suggests an acute phase response. [id number] (BEAKER) Анна Encarnacion MD (electronic (test fvsy=2645) signature) PROTEIN TOTAL SERUM, SPEP 6.1 gm/dL 6.0-8.3 (BEAKER) (test zwwm=3022) POCT-GLUCOSE [id number] 14:34:00 Test Item Value Reference Range Comments POC-GLUCOSE METER (BEAKER) 137 mg/dL 70-110 TESTED AT [facility] [address] (test sqor=1128) [facility] [address] ANTI-NUCLEAR ANTIBODY (ROSLYN)2017-07-22 13:24:00 Test Item Value Reference Range Comments ANTI-NUCLEAR ANTIBODY (ROSLYN) (BEAKER) (test Positive Negative fsaf=917) ROSLYN TITER AND [id number] 13:24:00 Test Item Value Reference Range Comments ROSLYN TITER (BEAKER) (test cnxk=9301) :640 ROSLYN PATTERN (BEAKER) (test tnwc=7831) Homogeneous [id number] 12:50:00 Test Item Value Reference Range Comments PHOSPHORUS (BEAKER) (test ojbf=812) 2.5 mg/dL 2.3-4.7 BASIC METABOLIC [id number] 12:50:00 Test Item Value Reference Range Comments SODIUM (BEAKER) (test 145 meq/L 136-145 bmfa=574) POTASSIUM (BEAKER) (test 3.6 meq/L 3.5-5.1 szsi=753) CHLORIDE (BEAKER) (test 107 meq/L 98-107 sqqh=113) CO2 (BEAKER) (test 30 meq/L 22-29 bqah=671) BLOOD UREA NITROGEN 37 mg/dL 7-21 (BEAKER) (test chfa=275) CREATININE (BEAKER) (test 1.69 mg/dL 0.57-1.25 xgrb=103) GLUCOSE RANDOM (BEAKER) 154 mg/dL 70-105 (test tcjk=278) CALCIUM (BEAKER) (test 8.9 mg/dL 8.4-10.2 euav=246) EGFR (BEAKER) (test 36 mL/min/1.73 sq m ESTIMATED GFR IS NOT fimi=1956) ACCURATE CREATININE CLEARANCE IN PREDICTING GLOMERULAR FILTRATION RATE. ESTIMATED GFR IS NOT APPLICABLE FOR DIALYSIS PATIENTS. BLOOD GAS, [id number] 12:36:00 Test Item Value Reference Range Comments PH ARTERIAL (BEAKER) (test amhq=809) 7.48 7.35-7.45 PCO2 ARTERIAL (BEAKER) (test ojqd=525) 44 mmHg 35-45 PO2 ARTERIAL (BEAKER) (test mhso=966) 156 mmHg 80-90 O2 SATURATION ARTERIAL (BEAKER) (test iwox=854) 99.1 % 96.0-97.0 HCO3 ARTERIAL (BEAKER) (test wfod=904) 32 mmol/L 21-29 BASE EXCESS ARTERIAL (BEAKER) (test ynel=281) 7.4 mmol/L -2.0-3.0 PATIENT TEMPERATURE (BEAKER) (test rpfo=8649) 37.4 C FIO2 (BEAKER) (test qawo=3376) 80.0 % POCT-GLUCOSE [id number] 12:26:00 Test Item Value Reference Range Comments POC-GLUCOSE METER (BEAKER) 147 mg/dL 70-110 TESTED AT [address] (test hqqj=7383) [place] [address] URINE [id number] 11:56:00 Test Item Value Reference Range Comments CULTURE (BEAKER) (test ppfd=3159) No growth POCT-GLUCOSE [id number] 11:11:00 Test Item Value Reference Range Comments POC-GLUCOSE METER (BEAKER) 172 mg/dL 70-110 TESTED AT [address] (test oark=6406) [place] [address] POCT-GLUCOSE [id number] 09:54:00 Test Item Value Reference Range Comments POC-GLUCOSE METER (BEAKER) 196 mg/dL 70-110 TESTED AT [address] (test camw=5727) [place] [address] LACTIC ACID, ARTERIAL, WHOLE [id number] 09:07:00 Test Item Value Reference Range Comments LACTATE BLOOD ARTERIAL (2) (BEAKER) (test 0.7 mmol/L 0.5-2.2 khps=0859) Effective 08/06/2015: Units/Reference Range ChangeNew: 0.5-2.2 mmol/L Previous: 5 -20 mg/[id number] 09:06:00 Test Item Value Reference Range Comments MAGNESIUM (BEAKER) (test pjln=291) 2.2 mg/dL 1.6-2.6 POCT-GLUCOSE [id number] 08:39:00 Test Item Value Reference Range Comments POC-GLUCOSE METER (BEAKER) 188 mg/dL 70-110 TESTED AT [address] (test boky=9350) [place] [id number] POCT-GLUCOSE [id number] 08:37:00 Test Item Value Reference Range Comments POC-GLUCOSE METER (BEAKER) 195 mg/dL 70-110 TESTED AT [address] (test tocg=8051) [place] [id number] BLOOD GAS, [id number] 06:46:00 Test Item Value Reference Range Comments PH ARTERIAL (BEAKER) (test sqmx=609) 7.47 7.35-7.45 PCO2 ARTERIAL (BEAKER) (test bzhn=920) 44 mmHg 35-45 PO2 ARTERIAL (BEAKER) (test czqw=046) 57 mmHg 80-90 O2 SATURATION ARTERIAL (BEAKER) (test vnlv=239) 91.1 % 96.0-97.0 HCO3 ARTERIAL (BEAKER) (test zkmh=496) 32 mmol/L 21-29 BASE EXCESS ARTERIAL (BEAKER) (test luws=460) 7.1 mmol/L -2.0-3.0 PATIENT TEMPERATURE (BEAKER) (test wtny=6333) 37.0 C [id number] 06:14:00 Test Item Value Reference Range Comments RPR SCREEN (BEAKER) (test dyot=868) Nonreactive Nonreactive CALCIUM, [id number] 05:52:00 Test Item Value Reference Range Comments CALCIUM IONIZED (BEAKER) (test nxgu=177) 1.13 mmol/L 1.12-1.27 PH, BLOOD (BEAKER) (test etfz=7688) 7.46 [id number] 05:42:00 Test Item Value Reference Range Comments PHOSPHORUS (BEAKER) (test svnx=855) 2.2 mg/dL 2.3-4.7 [id number] 05:42:00 Test Item Value Reference Range Comments MAGNESIUM (BEAKER) (test ykrb=318) 2.1 mg/dL 1.6-2.6 HEPATIC FUNCTION [id number] 05:42:00 Test Item Value Reference Range Comments TOTAL PROTEIN (BEAKER) (test lclz=199) 6.2 gm/dL 6.0-8.3 ALBUMIN (BEAKER) (test olyw=3307) 3.1 g/dL 3.5-5.0 BILIRUBIN TOTAL (BEAKER) (test ilgd=017) 1.4 mg/dL 0.2-1.2 BILIRUBIN DIRECT (BEAKER) (test ojlp=633) 0.7 mg/dL 0.1-0.5 ALKALINE PHOSPHATASE (BEAKER) (test rvjq=507) 49 U/L 40-150 AST (SGOT) (BEAKER) (test mjjh=747) 74 U/L 5-34 ALT (SGPT) (BEAKER) (test xwdt=211) 37 U/L 6-55 LACTATE DEHYDROGENASE (LDH)2017-07-22 05:42:00 Test Item Value Reference Range Comments LACTATE DEHYDROGENASE (BEAKER) (test znnq=492) 1339 U/L 125-220 [id number] 05:40:00 Test Item Value Reference Range Comments PHOSPHORUS (BEAKER) (test uxgv=557) 2.2 mg/dL 2.3-4.7 BASIC METABOLIC [id number] 05:40:00 Test Item Value Reference Range Comments SODIUM (BEAKER) (test 144 meq/L 136-145 ptwf=706) POTASSIUM (BEAKER) (test 4.0 meq/L 3.5-5.1 ikct=906) CHLORIDE (BEAKER) (test 107 meq/L 98-107 qdyn=615) CO2 (BEAKER) (test 28 meq/L 22-29 srux=941) BLOOD UREA NITROGEN 36 mg/dL 7-21 (BEAKER) (test rnbo=182) CREATININE (BEAKER) (test 1.79 mg/dL 0.57-1.25 cbdd=307) GLUCOSE RANDOM (BEAKER) 183 mg/dL 70-105 (test whui=342) CALCIUM (BEAKER) (test 8.9 mg/dL 8.4-10.2 ogow=129) EGFR (BEAKER) (test 34 mL/min/1.73 sq m ESTIMATED GFR IS NOT qgcm=4773) ACCURATE CREATININE CLEARANCE IN PREDICTING GLOMERULAR FILTRATION RATE. ESTIMATED GFR IS NOT APPLICABLE FOR DIALYSIS PATIENTS. OXYGEN SATURATION, [id number] 05:29:00 Test Item Value Reference Range Comments O2 SATURATION (MEASURED) (BEAKER) (test tafs=0569) 54.7 % [id number] 05:29:00 Test Item Value Reference Range Comments PARTIAL THROMBOPLASTIN TIME (BEAKER) (test 70.7 seconds 22.5-36.0 csas=913) CBC W/PLT COUNT & AUTO [id number] 05:24:00 Test Item Value Reference Range Comments WHITE BLOOD CELL COUNT (BEAKER) (test avzo=322) 13.0 K/ L 3.5-10.5 RED BLOOD CELL COUNT (BEAKER) (test pkjb=654) 3.04 M/ L 3.93-5.22 HEMOGLOBIN (BEAKER) (test zmvk=078) 9.0 GM/DL 11.2-15.7 HEMATOCRIT (BEAKER) (test wwhr=871) 29.0 % 34.1-44.9 MEAN CORPUSCULAR VOLUME (BEAKER) (test qypx=079) 95.4 fL 79.4-94.8 MEAN CORPUSCULAR HEMOGLOBIN (BEAKER) (test 29.6 pg 25.6-32.2 ytrq=801) MEAN CORPUSCULAR HEMOGLOBIN CONC (BEAKER) (test 31.0 GM/DL 32.2-35.5 qqwa=330) RED CELL DISTRIBUTION WIDTH (BEAKER) (test 15.5 % 11.7-14.4 izwy=270) PLATELET COUNT (BEAKER) (test cyjq=707) 132 K/CU MM 150-450 MEAN PLATELET VOLUME (BEAKER) (test jbsz=395) 11.4 fL 9.4-12.3 NUCLEATED RED BLOOD CELLS (BEAKER) (test 0 /100 WBC 0-0 zbvn=101) NEUTROPHILS RELATIVE PERCENT (BEAKER) (test 80 % efmy=768) LYMPHOCYTES RELATIVE PERCENT (BEAKER) (test 10 % kgfk=770) MONOCYTES RELATIVE PERCENT (BEAKER) (test 9 % vurc=445) EOSINOPHILS RELATIVE PERCENT (BEAKER) (test 0 % ooka=869) BASOPHILS RELATIVE PERCENT (BEAKER) (test 0 % pffj=545) NEUTROPHILS ABSOLUTE COUNT (BEAKER) (test 10.44 K/ L 1.56-6.13 rpoi=659) LYMPHOCYTES ABSOLUTE COUNT (BEAKER) (test 1.29 K/ L 1.18-3.74 wlrv=290) MONOCYTES ABSOLUTE COUNT (BEAKER) (test 1.12 K/ L 0.24-0.36 bahv=841) EOSINOPHILS ABSOLUTE COUNT (BEAKER) (test 0.01 K/ L 0.04-0.36 nuve=803) BASOPHILS ABSOLUTE COUNT (BEAKER) (test 0.04 K/ L 0.01-0.08 blew=090) IMMATURE GRANULOCYTES-RELATIVE PERCENT (BEAKER) 1 % 0-1 (test sqnl=9532) RAD, CHEST, 1 VIEW, NON [id number] 04:45:00Reason for exam:->respiratory insufficiencyFINAL REPORT CLINICAL INDICATION: Respiratory insufficiency Comparison: 07/21/2017 The cardiomediastinal contours are stable. The left hemidiaphragm is slightly elevated. Centralpulmonary vascular congestion and bilateral parenchymal opacities are unchanged. There is no pneumothorax. A femoral Impella device remains in place. Signed: Adelso Sorensen MDReport Verified Date/Time:07/22/2017 04:45:12 Reading Location: [address] Reading Room POCT-GLUCOSE [id number] 03:01:00 Test Item Value Reference Range Comments POC-GLUCOSE METER (BEAKER) 115 mg/dL 70-110 TESTED AT [address] (test kvbq=9527) [place] [id number] POCT-GLUCOSE [id number] 00:14:00 Test Item Value Reference Range Comments POC-GLUCOSE METER (BEAKER) 137 mg/dL 70-110 TESTED AT [address] (test rcji=3255) [place] [address] [id number] 00:09:00 Test Item Value Reference Range Comments POTASSIUM (BEAKER) (test okwe=663) 3.8 meq/L 3.5-5.1 PRN - repeat glucose levels every 1 hour or as specified by insulin titration orders until glucose level is less than 450 mg/dLCheck Serum Potassium level 2 hours after oral potassium replacement completed or 30 min after intravenous potassium replacement.[id number] 00:09:00 Test Item Value Reference Range Comments MAGNESIUM (BEAKER) (test vvah=282) 2.5 mg/dL 1.6-2.6 PRN - repeat glucose levels every 1 hour or as specified by insulin titration orders until glucose level is less than 450 mg/dLCheck Serum Potassium level 2 hours after oral potassium replacement completed or 30 min after intravenous potassium replacement.[id number] 00:09:00 Test Item Value Reference Range Comments PHOSPHORUS (BEAKER) (test wiwf=803) 1.9 mg/dL 2.3-4.7 PRN - repeat glucose levels every 1 hour or as specified by insulin titration orders until glucose level is less than 450 mg/dLCheck Serum Potassium level 2 hours after oral potassium replacement completed or 30 min after intravenous potassium replacement.[id number] 00:09:00 Test Item Value Reference Range Comments GLUCOSE RANDOM (BEAKER) (test prmp=304) 155 mg/dL 70-105 PRN - repeat glucose levels every 1 hour or as specified by insulin titration orders until glucose level is less than 450 mg/dLCheck Serum Potassium level 2 hours after oral potassium replacement completed or 30 min after intravenous potassium replacement.BASIC METABOLIC [id number] 00:09:00 Test Item Value Reference Range Comments SODIUM (BEAKER) (test 142 meq/L 136-145 lnim=227) POTASSIUM (BEAKER) (test 3.8 meq/L 3.5-5.1 fjbz=872) CHLORIDE (BEAKER) (test 105 meq/L 98-107 phdp=481) CO2 (BEAKER) (test 30 meq/L 22-29 vzvm=769) BLOOD UREA NITROGEN 37 mg/dL 7-21 (BEAKER) (test mfuv=302) CREATININE (BEAKER) (test 1.80 mg/dL 0.57-1.25 fvqz=576) GLUCOSE RANDOM (BEAKER) 155 mg/dL 70-105 (test wczm=059) CALCIUM (BEAKER) (test 8.8 mg/dL 8.4-10.2 iwil=593) EGFR (BEAKER) (test 34 mL/min/1.73 sq m ESTIMATED GFR IS NOT vlse=3830) ACCURATE CREATININE CLEARANCE IN PREDICTING GLOMERULAR FILTRATION RATE. ESTIMATED GFR IS NOT APPLICABLE FOR DIALYSIS PATIENTS. PRN - repeat glucose levels every 1 hour or as specified by insulin titration orders until glucose level is less than 450 mg/dLCheck Serum Potassium level 2 hours after oral potassium replacement completed or 30 min after intravenous potassium replacement.[id number] 00:06:00 Test Item Value Reference Range Comments PARTIAL THROMBOPLASTIN TIME (BEAKER) (test 62.0 seconds 22.5-36.0 ocwj=591) BLOOD GAS, [id number] 20:39:00 Test Item Value Reference Range Comments PH ARTERIAL (BEAKER) (test dudd=769) 7.45 7.35-7.45 PCO2 ARTERIAL (BEAKER) (test vxlx=410) 46 mmHg 35-45 PO2 ARTERIAL (BEAKER) (test adbl=827) 64 mmHg 80-90 O2 SATURATION ARTERIAL (BEAKER) (test npfr=473) 92.0 % 96.0-97.0 HCO3 ARTERIAL (BEAKER) (test tioh=174) 31 mmol/L 21-29 BASE EXCESS ARTERIAL (BEAKER) (test dfrb=903) 6.7 mmol/L -2.0-3.0 PATIENT TEMPERATURE (BEAKER) (test sqkb=1734) 38.1 C FIO2 (BEAKER) (test fodv=5327) 80.0 % POTASSIUM-STAT [id number] 20:39:00 Test Item Value Reference Range Comments POTASSIUM (BEAKER) (test gdrh=114) 3.4 meq/L 3.6-5.5 [id number] 20:16:00 Test Item Value Reference Range Comments FERRITIN (BEAKER) (test szqh=215) 651 ng/mL 5-275 POCT-GLUCOSE [id number] 20:10:00 Test Item Value Reference Range Comments POC-GLUCOSE METER (BEAKER) 180 mg/dL 70-110 TESTED AT [address] (test pzrn=2824) [facility] [address] POCT-GLUCOSE [id number] 20:10:00 Test Item Value Reference Range Comments POC-GLUCOSE METER (BEAKER) 197 mg/dL 70-110 TESTED AT [address] (test uwpa=5913) [facility] [address] [id number] 19:54:00 Test Item Value Reference Range Comments PARTIAL THROMBOPLASTIN TIME (BEAKER) (test 62.4 seconds 22.5-36.0 ncev=511) [id number] 19:53:00 Test Item Value Reference Range Comments MAGNESIUM (BEAKER) (test hzdi=960) 2.2 mg/dL 1.6-2.6 HEPATITIS A ANTIBODY, [id number] 19:25:00 Test Item Value Reference Range Comments HEPATITIS A IGG ANTIBODY (BEAKER) (test pbil=1225) Reactive Nonreactive GLUCOSE-STAT [id number] 19:24:00 Test Item Value Reference Range Comments GLUCOSE RANDOM (BEAKER) (test uvtd=011) 174 mg/dL 70-110 HGB/HCT (H&H) - STAT [id number] 19:24:00 Test Item Value Reference Range Comments HEMOGLOBIN (BEAKER) (test ueej=289) 10.1 g/dL 12.0-15.0 HEMATOCRIT (BEAKER) (test qorm=087) 30.0 % 36.0-45.0 POTASSIUM-STAT [id number] 19:24:00 Test Item Value Reference Range Comments POTASSIUM (BEAKER) (test vced=457) 3.4 meq/L 3.6-5.5 HEPATITIS B CORE ANTIBODY, [id number] 19:21:00 Test Item Value Reference Range Comments HEPATITIS B CORE TOTAL ANTIBODY (BEAKER) (test Nonreactive Nonreactive crmf=205) HEPATITIS PANEL, [id number] 19:21:00 Test Item Value Reference Range Comments HEPATITIS A IGM ANTIBODY (BEAKER) (test Nonreactive Nonreactive luoz=032) HEPATITIS B CORE IGM ANTIBODY (BEAKER) (test Nonreactive Nonreactive vloz=111) HEPATITIS C ANTIBODY (BEAKER) (test pbzr=074) Nonreactive Nonreactive HEPATITIS B SURFACE ANTIGEN (2) (BEAKER) (test Nonreactive Nonreactive edeg=9962) HIV-1 ANTIGEN WITH HIV-1/2 [id number] 19:21:00 Test Item Value Reference Range Comments HIV-1 ANTIGEN WITH HIV 1\T\2 ANTIBODY (2) Nonreactive Nonreactive (BEAKER) (test jcbk=3599) BASIC METABOLIC [id number] 18:05:00 Test Item Value Reference Range Comments SODIUM (BEAKER) (test 141 meq/L 136-145 wrgb=216) POTASSIUM (BEAKER) (test 4.0 meq/L 3.5-5.1 oqhi=613) CHLORIDE (BEAKER) (test 104 meq/L 98-107 xada=024) CO2 (BEAKER) (test 26 meq/L 22-29 tkdj=356) BLOOD UREA NITROGEN 41 mg/dL 7-21 (BEAKER) (test bgdk=872) CREATININE (BEAKER) (test 2.07 mg/dL 0.57-1.25 trxz=591) GLUCOSE RANDOM (BEAKER) 242 mg/dL 70-105 (test jhng=648) CALCIUM (BEAKER) (test 8.9 mg/dL 8.4-10.2 noxo=502) EGFR (BEAKER) (test 29 mL/min/1.73 sq m ESTIMATED GFR IS NOT hddv=7324) ACCURATE CREATININE CLEARANCE IN PREDICTING GLOMERULAR FILTRATION RATE. ESTIMATED GFR IS NOT APPLICABLE FOR DIALYSIS PATIENTS. Check Serum Potassium level 2 hours after oral potassium replacement completed or 30 min after intravenous potassium replacement.[id number] 18:02:00 Test Item Value Reference Range Comments POTASSIUM (BEAKER) (test gthc=176) 4.0 meq/L 3.5-5.1 Check Serum Potassium level 2 hours after oral potassium replacement completed or 30 min after intravenous potassium replacement.[id number] 18:02:00 Test Item Value Reference Range Comments MAGNESIUM (BEAKER) (test pdng=825) 2.2 mg/dL 1.6-2.6 Check Serum Potassium level 2 hours after oral potassium replacement completed or 30 min after intravenous potassium replacement.[id number] 18:02:00 Test Item Value Reference Range Comments PHOSPHORUS (BEAKER) (test islf=722) 2.1 mg/dL 2.3-4.7 Check Serum Potassium level 2 hours after oral potassium replacement completed or 30 min after intravenous potassium replacement.POCT-GLUCOSE [id number] 17:31:00 Test Item Value Reference Range Comments POC-GLUCOSE METER (BEAKER) 253 mg/dL 70-110 TESTED AT [address] (test uyyj=1892) [facility] [address] VITAMIN D, [id number] 17:31:00 Test Item Value Reference Range Comments VITAMIN D 25-OH (BEAKER) (test wlwo=5884) 5.8 ng/mL 6.6-49.9 Effective 01/12/2017: Reference Range ChangeNew: 6.6-49.9 ng/mL Previous: 13.0 -47.8 ng/mLRecommended Vitamin D Target Range: 30.0-40.0 ng/mLPOCT-GLUCOSE [id number] 17:31:00 Test Item Value Reference Range Comments POC-GLUCOSE METER (BEAKER) 269 mg/dL 70-110 TESTED AT [address] (test xapv=9207) [facility] [address] [id number] 17:09:00 Test Item Value Reference Range Comments TRANSFERRIN (BEAKER) (test iqcs=441) 166 mg/dL 174-382 [id number] 17:09:00 Test Item Value Reference Range Comments PREALBUMIN (BEAKER) (test fqjv=749) 14 mg/dL 14-45 IRON, [id number] 17:09:00 Test Item Value Reference Range Comments IRON (BEAKER) (test zzvk=570) 57 ug/dL 40-160 TROPONIN [id number] 16:59:00 Test Item Value Reference Range Comments TROPONIN I (BEAKER) (test vxey=949) 45.70 ng/mL 0.00-0.03 Troponin I (TnI) levels [...] failure, acidosis, acute neurological disease, and persistent tachyarrhythmia.[id number] 16:49:00 Test Item Value Reference Range Comments CREATININE (BEAKER) (test 2.17 mg/dL 0.57-1.25 vzkf=876) EGFR (BEAKER) (test 27 mL/min/1.73 sq m ESTIMATED GFR IS NOT soil=5547) ACCURATE CREATININE CLEARANCE IN PREDICTING GLOMERULAR FILTRATION RATE. ESTIMATED GFR IS NOT APPLICABLE FOR DIALYSIS PATIENTS. URIC [id number] 16:48:00 Test Item Value Reference Range Comments URIC ACID (BEAKER) (test zyti=378) 8.2 mg/dL 2.6-7.2 LIPID [id number] 16:48:00 Test Item Value Reference Range Comments TRIGLYCERIDES (BEAKER) (test zdjo=149) 122 mg/dL CHOLESTEROL (BEAKER) (test bbqr=475) 204 mg/dL HDL CHOLESTEROL (BEAKER) (test afnp=821) 85 mg/dL LDL CHOLESTEROL CALCULATED (BEAKER) (test 95 mg/dL gadk=924) Triglyceride Reference Range: Low Risk <150 Borderline 150- 199 High Risk 200-499 Very High Risk >=500Cholesterol Reference Range: Low Risk <200 Borderline 200-239 High Risk > 240HDL Cholesterol Reference Range: Low Risk >=60 High Risk <40LDL Cholesterol Reference Range: Optimal <100 Near Optimal 100-129 Borderline 130-159 High 160-189 Very High >=[id number] 16:48:00 Test Item Value Reference Range Comments AMYLASE (BEAKER) (test bdew=011) 228 U/L 25-125 GAMMA GLUTAMYL TRANSFERASE (GGT)2017-07-21 16:48:00 Test Item Value Reference Range Comments GAMMA GLUTAMYL TRANSFERASE (BEAKER) (test tgba=537) 52 U/L 9-64 RETICULOCYTE [id number] 16:39:00 Test Item Value Reference Range Comments RETICULOCYTE COUNT PCT (BEAKER) (test rakh=024) 3.8 % 0.5-1.7 TROPONIN [id number] 13:49:00 Test Item Value Reference Range Comments TROPONIN I (BEAKER) (test wjhn=701) 43.19 ng/mL 0.00-0.03 Troponin I (TnI) levels [...] acute neurological disease, and persistent tachyarrhythmia.BASIC METABOLIC [id number] 12:22:00 Test Item Value Reference Range Comments SODIUM (BEAKER) (test 141 meq/L 136-145 mtri=109) POTASSIUM (BEAKER) (test 3.9 meq/L 3.5-5.1 dpze=764) CHLORIDE (BEAKER) (test 102 meq/L 98-107 cchg=925) CO2 (BEAKER) (test 28 meq/L 22-29 idiu=046) BLOOD UREA NITROGEN 40 mg/dL 7-21 (BEAKER) (test vjed=879) CREATININE (BEAKER) (test 2.20 mg/dL 0.57-1.25 qvmw=101) GLUCOSE RANDOM (BEAKER) 238 mg/dL 70-105 (test qwsg=969) CALCIUM (BEAKER) (test 8.9 mg/dL 8.4-10.2 tkze=789) EGFR (BEAKER) (test 27 mL/min/1.73 sq m ESTIMATED GFR IS NOT exoq=9780) ACCURATE CREATININE CLEARANCE IN PREDICTING GLOMERULAR FILTRATION RATE. ESTIMATED GFR IS NOT APPLICABLE FOR DIALYSIS PATIENTS. [id number] 12:17:00 Test Item Value Reference Range Comments POTASSIUM (BEAKER) (test qkem=808) 3.9 meq/L 3.5-5.1 [id number] 12:17:00 Test Item Value Reference Range Comments MAGNESIUM (BEAKER) (test lsdc=157) 2.4 mg/dL 1.6-2.6 [id number] 12:17:00 Test Item Value Reference Range Comments PHOSPHORUS (BEAKER) (test frph=989) 3.7 mg/dL 2.3-4.7 [id number] 12:17:00 Test Item Value Reference Range Comments GLUCOSE RANDOM (BEAKER) (test ahaj=146) 238 mg/dL 70-105 [id number] 12:04:00 Test Item Value Reference Range Comments PARTIAL THROMBOPLASTIN TIME (BEAKER) (test 59.3 seconds 22.5-36.0 lutj=053) SPUTUM CULTURE + GRAM [id number] 11:47:00 Test Item Value Reference Range Comments CULTURE (BEAKER) (test <1+ Normal respiratory pascual gvss=4048) present GRAM STAIN RESULT (BEAKER) 1+ WBCs (test vjug=5463) GRAM STAIN RESULT (BEAKER) 0-5 epithelial cells (test dllb=27991) GRAM STAIN RESULT (BEAKER) No organisms seen (test ecrn=62266) HEMOGLOBIN AND [id number] 11:26:00 Test Item Value Reference Range Comments HEMOGLOBIN (BEAKER) (test vfsu=869) 7.9 GM/DL 11.2-15.7 HEMATOCRIT (BEAKER) (test draa=212) 26.5 % 34.1-44.9 BLOOD GAS, [id number] 10:43:00 Test Item Value Reference Range Comments PH ARTERIAL (BEAKER) (test jmzq=655) 7.42 7.35-7.45 PCO2 ARTERIAL (BEAKER) (test ixxu=985) 44 mmHg 35-45 PO2 ARTERIAL (BEAKER) (test jvle=370) 51 mmHg 80-90 O2 SATURATION ARTERIAL (BEAKER) (test xmtf=527) 88.2 % 96.0-97.0 HCO3 ARTERIAL (BEAKER) (test rqvg=599) 28 mmol/L 21-29 BASE EXCESS ARTERIAL (BEAKER) (test ypsu=107) 3.2 mmol/L -2.0-3.0 PATIENT TEMPERATURE (BEAKER) (test oxhn=6413) 36.0 C FIO2 (BEAKER) (test wfwf=5499) 80.0 % URINE [id number] 09:44:00 Test Item Value Reference Range Comments CULTURE (BEAKER) (test mhcl=4083) No growth BASIC METABOLIC [id number] 06:28:00 Test Item Value Reference Range Comments SODIUM (BEAKER) (test 141 meq/L 136-145 iaao=007) POTASSIUM (BEAKER) (test 4.1 meq/L 3.5-5.1 grbp=516) CHLORIDE (BEAKER) (test 101 meq/L 98-107 ipxn=967) CO2 (BEAKER) (test 29 meq/L 22-29 sjst=595) BLOOD UREA NITROGEN 40 mg/dL 7-21 (BEAKER) (test jrgd=572) CREATININE (BEAKER) (test 2.46 mg/dL 0.57-1.25 kzto=802) GLUCOSE RANDOM (BEAKER) 236 mg/dL 70-105 (test aglh=891) CALCIUM (BEAKER) (test 8.6 mg/dL 8.4-10.2 mezt=630) EGFR (BEAKER) (test 24 mL/min/1.73 sq m ESTIMATED GFR IS NOT krsr=5893) ACCURATE CREATININE CLEARANCE IN PREDICTING GLOMERULAR FILTRATION RATE. ESTIMATED GFR IS NOT APPLICABLE FOR DIALYSIS PATIENTS. [id number] 06:26:00 Test Item Value Reference Range Comments PHOSPHORUS (BEAKER) (test tdcl=037) 4.6 mg/dL 2.3-4.7 POCT-GLUCOSE [id number] 06:05:00 Test Item Value Reference Range Comments POC-GLUCOSE METER (BEAKER) 278 mg/dL 70-110 TESTED AT [address] (test mbwv=9920) [place] [id number] POCT-GLUCOSE [id number] 06:05:00 Test Item Value Reference Range Comments POC-GLUCOSE METER (BEAKER) 231 mg/dL 70-110 TESTED AT [address] (test pgjw=6026) [place] [id number] POCT-GLUCOSE [id number] 06:05:00 Test Item Value Reference Range Comments POC-GLUCOSE METER (BEAKER) 190 mg/dL 70-110 TESTED AT [address] (test uxul=0966) [place] [address] [id number] 05:56:00 Test Item Value Reference Range Comments PARTIAL THROMBOPLASTIN TIME (BEAKER) (test 72.5 seconds 22.5-36.0 imps=165) RAD, CHEST, 1 VIEW, NON [id number] 04:38:00Reason for exam:->respiratory insufficiencyFINAL REPORT CLINICAL INDICATION: Respiratory insufficiency Comparison: 07/20/2017 The cardiomediastinal contours are stable. Central pulmonary vascular prominence and bilateral parenchymal opacities are similar within variation of acquisition technique. There is no pneumothorax. A femoral Impella device is stable in position. Signed: Adelso Sorensen MDReport Verified Date/Time:07/21/2017 04:38:32 Reading Location: [address] Reading Room BASIC METABOLIC [id number] 04:06:00 Test Item Value Reference Range Comments SODIUM (BEAKER) (test 142 meq/L 136-145 mrkd=674) POTASSIUM (BEAKER) (test 3.9 meq/L 3.5-5.1 yiwc=917) CHLORIDE (BEAKER) (test 102 meq/L 98-107 rrqh=332) CO2 (BEAKER) (test 31 meq/L 22-29 otwq=732) BLOOD UREA NITROGEN 40 mg/dL 7-21 (BEAKER) (test zxbp=409) CREATININE (BEAKER) (test 2.37 mg/dL 0.57-1.25 rsqt=778) GLUCOSE RANDOM (BEAKER) 206 mg/dL 70-105 (test vsff=377) CALCIUM (BEAKER) (test 8.5 mg/dL 8.4-10.2 baeo=058) EGFR (BEAKER) (test 25 mL/min/1.73 sq m ESTIMATED GFR IS NOT cxal=6856) ACCURATE CREATININE CLEARANCE IN PREDICTING GLOMERULAR FILTRATION RATE. ESTIMATED GFR IS NOT APPLICABLE FOR DIALYSIS PATIENTS. BLOOD GAS, [id number] 03:53:00 Test Item Value Reference Range Comments PH ARTERIAL (BEAKER) (test cmwj=917) 7.36 7.35-7.45 PCO2 ARTERIAL (BEAKER) (test fzko=309) 55 mmHg 35-45 PO2 ARTERIAL (BEAKER) (test agen=410) 94 mmHg 80-90 O2 SATURATION ARTERIAL (BEAKER) (test bzws=281) 96.0 % 96.0-97.0 HCO3 ARTERIAL (BEAKER) (test enhx=177) 30 mmol/L 21-29 BASE EXCESS ARTERIAL (BEAKER) (test wkdv=113) 4.2 mmol/L -2.0-3.0 PATIENT TEMPERATURE (BEAKER) (test ftgx=5136) 38.8 C FIO2 (BEAKER) (test kyoo=2119) 80.0 % CALCIUM, [id number] 03:51:00 Test Item Value Reference Range Comments CALCIUM IONIZED (BEAKER) (test uteg=159) 1.07 mmol/L 1.12-1.27 PH, BLOOD (BEAKER) (test hqkt=8649) 7.35 OXYGEN SATURATION, [id number] 03:50:00 Test Item Value Reference Range Comments O2 SATURATION (MEASURED) (BEAKER) (test bhja=7386) 72.6 % [id number] 03:47:00 Test Item Value Reference Range Comments PHOSPHORUS (BEAKER) (test fujo=528) 4.5 mg/dL 2.3-4.7 [id number] 03:47:00 Test Item Value Reference Range Comments MAGNESIUM (BEAKER) (test ybkb=682) 2.1 mg/dL 1.6-2.6 HEPATIC FUNCTION [id number] 03:47:00 Test Item Value Reference Range Comments TOTAL PROTEIN (BEAKER) (test rpfw=372) 6.1 gm/dL 6.0-8.3 ALBUMIN (BEAKER) (test cfxz=9104) 3.1 g/dL 3.5-5.0 BILIRUBIN TOTAL (BEAKER) (test qvzr=640) 1.4 mg/dL 0.2-1.2 BILIRUBIN DIRECT (BEAKER) (test lmnf=149) 0.6 mg/dL 0.1-0.5 ALKALINE PHOSPHATASE (BEAKER) (test kvsi=198) 45 U/L 40-150 AST (SGOT) (BEAKER) (test pwwn=033) 94 U/L 5-34 ALT (SGPT) (BEAKER) (test wrcw=572) 48 U/L 6-55 LACTATE DEHYDROGENASE (LDH)2017-07-21 03:47:00 Test Item Value Reference Range Comments LACTATE DEHYDROGENASE (BEAKER) (test lglz=451) 1470 U/L 125-220 CBC W/PLT COUNT & AUTO [id number] 03:41:00 Test Item Value Reference Range Comments WHITE BLOOD CELL COUNT (BEAKER) (test niip=977) 14.1 K/ L 3.5-10.5 RED BLOOD CELL COUNT (BEAKER) (test srfz=660) 2.81 M/ L 3.93-5.22 HEMOGLOBIN (BEAKER) (test gilh=895) 8.6 GM/DL 11.2-15.7 HEMATOCRIT (BEAKER) (test ubez=899) 28.2 % 34.1-44.9 MEAN CORPUSCULAR VOLUME (BEAKER) (test glmy=356) 100.4 fL 79.4-94.8 MEAN CORPUSCULAR HEMOGLOBIN (BEAKER) (test 30.6 pg 25.6-32.2 axul=546) MEAN CORPUSCULAR HEMOGLOBIN CONC (BEAKER) (test 30.5 GM/DL 32.2-35.5 bssb=586) RED CELL DISTRIBUTION WIDTH (BEAKER) (test 13.1 % 11.7-14.4 xjya=325) PLATELET COUNT (BEAKER) (test pfcq=673) 140 K/CU MM 150-450 MEAN PLATELET VOLUME (BEAKER) (test fhex=637) 11.1 fL 9.4-12.3 NUCLEATED RED BLOOD CELLS (BEAKER) (test 0 /100 WBC 0-0 afce=106) NEUTROPHILS RELATIVE PERCENT (BEAKER) (test 86 % uejn=968) LYMPHOCYTES RELATIVE PERCENT (BEAKER) (test 6 % qydw=641) MONOCYTES RELATIVE PERCENT (BEAKER) (test 8 % lezt=332) EOSINOPHILS RELATIVE PERCENT (BEAKER) (test 0 % xhtv=701) BASOPHILS RELATIVE PERCENT (BEAKER) (test 0 % ucih=420) NEUTROPHILS ABSOLUTE COUNT (BEAKER) (test 12.13 K/ L 1.56-6.13 gvqz=134) LYMPHOCYTES ABSOLUTE COUNT (BEAKER) (test 0.81 K/ L 1.18-3.74 vcya=247) MONOCYTES ABSOLUTE COUNT (BEAKER) (test 1.07 K/ L 0.24-0.36 woqz=437) EOSINOPHILS ABSOLUTE COUNT (BEAKER) (test 0.00 K/ L 0.04-0.36 glop=133) BASOPHILS ABSOLUTE COUNT (BEAKER) (test 0.02 K/ L 0.01-0.08 djax=241) IMMATURE GRANULOCYTES-RELATIVE PERCENT (BEAKER) 1 % 0-1 (test qcza=4404) LACTIC ACID, ARTERIAL, WHOLE [id number] 03:39:00 Test Item Value Reference Range Comments LACTATE BLOOD ARTERIAL (2) (BEAKER) (test 0.9 mmol/L 0.5-2.2 cdqt=0496) Effective 08/06/2015: Units/Reference Range ChangeNew: 0.5-2.2 mmol/L Previous: 5 -20 mg/dLTROPONIN [id number] 00:12:00 Test Item Value Reference Range Comments TROPONIN I (BEAKER) (test cxxx=673) 60.74 ng/mL 0.00-0.03 Troponin I (TnI) levels [...] failure, acidosis, acute neurological disease, and persistent tachyarrhythmia.[id number] 23:42:00 Test Item Value Reference Range Comments PHOSPHORUS (BEAKER) (test ifso=328) 4.9 mg/dL 2.3-4.7 BASIC METABOLIC [id number] 23:42:00 Test Item Value Reference Range Comments SODIUM (BEAKER) (test 141 meq/L 136-145 yvtx=872) POTASSIUM (BEAKER) (test 4.2 meq/L 3.5-5.1 llpy=987) CHLORIDE (BEAKER) (test 102 meq/L 98-107 irkk=117) CO2 (BEAKER) (test 29 meq/L 22-29 vqhw=289) BLOOD UREA NITROGEN 40 mg/dL 7-21 (BEAKER) (test yhfx=784) CREATININE (BEAKER) (test 2.36 mg/dL 0.57-1.25 cfbk=380) GLUCOSE RANDOM (BEAKER) 200 mg/dL 70-105 (test huam=249) CALCIUM (BEAKER) (test 8.4 mg/dL 8.4-10.2 ebwf=198) EGFR (BEAKER) (test 25 mL/min/1.73 sq m ESTIMATED GFR IS NOT tqum=3877) ACCURATE CREATININE CLEARANCE IN PREDICTING GLOMERULAR FILTRATION RATE. ESTIMATED GFR IS NOT APPLICABLE FOR DIALYSIS PATIENTS. [id number] 23:39:00 Test Item Value Reference Range Comments PARTIAL THROMBOPLASTIN TIME (BEAKER) (test 78.1 seconds 22.5-36.0 ihhd=216) POCT-GLUCOSE [id number] 23:28:00 Test Item Value Reference Range Comments POC-GLUCOSE METER (BEAKER) 250 mg/dL 70-110 TESTED AT [facility] [address] [facility] (test cvpt=1278) [facility] [address] POCT-GLUCOSE [id number] 22:19:00 Test Item Value Reference Range Comments POC-GLUCOSE METER (BEAKER) 202 mg/dL 70-110 TESTED AT [address] (test zkqv=7323) [facility] [address] HEPATIC FUNCTION [id number] 21:45:00 Test Item Value Reference Range Comments TOTAL PROTEIN (BEAKER) (test qxqr=351) 5.9 gm/dL 6.0-8.3 ALBUMIN (BEAKER) (test gdcg=1980) 3.1 g/dL 3.5-5.0 BILIRUBIN TOTAL (BEAKER) (test qvvl=583) 1.0 mg/dL 0.2-1.2 BILIRUBIN DIRECT (BEAKER) (test svrx=045) 0.5 mg/dL 0.1-0.5 ALKALINE PHOSPHATASE (BEAKER) (test mugr=169) 46 U/L 40-150 AST (SGOT) (BEAKER) (test bxcy=521) 95 U/L 5-34 ALT (SGPT) (BEAKER) (test dhgb=528) 47 U/L 6-55 BASIC METABOLIC [id number] 21:45:00 Test Item Value Reference Range Comments SODIUM (BEAKER) (test 141 meq/L 136-145 poxh=265) POTASSIUM (BEAKER) (test 4.0 meq/L 3.5-5.1 suxb=152) CHLORIDE (BEAKER) (test 103 meq/L 98-107 vluc=251) CO2 (BEAKER) (test 27 meq/L 22-29 mkhs=803) BLOOD UREA NITROGEN 40 mg/dL 7-21 (BEAKER) (test izto=321) CREATININE (BEAKER) (test 2.30 mg/dL 0.57-1.25 fnkr=881) GLUCOSE RANDOM (BEAKER) 192 mg/dL 70-105 (test wqpw=597) CALCIUM (BEAKER) (test 8.4 mg/dL 8.4-10.2 dsxj=235) EGFR (BEAKER) (test 25 mL/min/1.73 sq m ESTIMATED GFR IS NOT hgwj=9731) ACCURATE CREATININE CLEARANCE IN PREDICTING GLOMERULAR FILTRATION RATE. ESTIMATED GFR IS NOT APPLICABLE FOR DIALYSIS PATIENTS. [id number] 21:38:00 Test Item Value Reference Range Comments MAGNESIUM (BEAKER) (test pbya=860) 2.1 mg/dL 1.6-2.6 LACTIC ACID, ARTERIAL, WHOLE [id number] 21:32:00 Test Item Value Reference Range Comments LACTATE BLOOD ARTERIAL (2) (BEAKER) (test 0.6 mmol/L 0.5-2.2 kbru=4880) Effective 08/06/2015: Units/Reference Range ChangeNew: 0.5-2.2 mmol/L Previous: 5 -20 mg/dLPOCT-GLUCOSE [id number] 21:21:00 Test Item Value Reference Range Comments POC-GLUCOSE METER (BEAKER) 198 mg/dL 70-110 TESTED AT [address] (test vcsx=5583) [place] [id number] POCT-GLUCOSE [id number] 21:21:00 Test Item Value Reference Range Comments POC-GLUCOSE METER (BEAKER) 155 mg/dL 70-110 TESTED AT [address] (test krgg=3435) [place] [id number] POCT-GLUCOSE [id number] 21:21:00 Test Item Value Reference Range Comments POC-GLUCOSE METER (BEAKER) 67 mg/dL 70-110 TESTED AT [address] (test lhji=7562) [facility] [address] BLOOD GAS, [id number] 21:16:00 Test Item Value Reference Range Comments PH ARTERIAL (BEAKER) (test axin=536) 7.34 7.35-7.45 PCO2 ARTERIAL (BEAKER) (test jqvm=903) 56 mmHg 35-45 PO2 ARTERIAL (BEAKER) (test zdjg=021) 107 mmHg 80-90 O2 SATURATION ARTERIAL (BEAKER) (test yudp=551) 97.3 % 96.0-97.0 HCO3 ARTERIAL (BEAKER) (test cggs=154) 29 mmol/L 21-29 BASE EXCESS ARTERIAL (BEAKER) (test ipvt=004) 2.7 mmol/L -2.0-3.0 PATIENT TEMPERATURE (BEAKER) (test pats=0203) 37.8 C FIO2 (BEAKER) (test vore=8323) 100.0 % GLUCOSE-STAT [id number] 21:16:00 Test Item Value Reference Range Comments GLUCOSE RANDOM (BEAKER) (test okyy=789) 188 mg/dL 70-110 HGB/HCT (H&H) - STAT [id number] 21:16:00 Test Item Value Reference Range Comments HEMOGLOBIN (BEAKER) (test xmcw=153) 9.9 g/dL 12.0-15.0 HEMATOCRIT (BEAKER) (test oxaw=764) 29.0 % 36.0-45.0 SODIUM NA-STAT [id number] 21:15:00 Test Item Value Reference Range Comments SODIUM (BEAKER) (test jgsh=996) 140 meq/L 135-148 POTASSIUM-STAT [id number] 21:15:00 Test Item Value Reference Range Comments POTASSIUM (BEAKER) (test gemh=249) 3.9 meq/L 3.6-5.5 BLOOD GAS, [id number] 19:44:00 Test Item Value Reference Range Comments PH ARTERIAL (BEAKER) (test vedn=785) 7.34 7.35-7.45 PCO2 ARTERIAL (BEAKER) (test reoe=314) 31 mmHg 35-45 PO2 ARTERIAL (BEAKER) (test msct=145) 68 mmHg 80-90 O2 SATURATION ARTERIAL (BEAKER) (test qtav=674) 92.1 % 96.0-97.0 HCO3 ARTERIAL (BEAKER) (test dbpp=996) 16 mmol/L 21-29 BASE EXCESS ARTERIAL (BEAKER) (test jpaz=118) -8.7 mmol/L -2.0-3.0 PATIENT TEMPERATURE (BEAKER) (test lxag=3357) 37.7 C FIO2 (BEAKER) (test bcih=1315) 50.0 % POCT-GLUCOSE [id number] 18:30:00 Test Item Value Reference Range Comments POC-GLUCOSE METER (BEAKER) 90 mg/dL 70-110 TESTED AT [facility] [address] (test ujbu=6595) [facility] [address] TROPONIN [id number] 18:05:00 Test Item Value Reference Range Comments TROPONIN I (BEAKER) (test foes=232) 76.69 ng/mL 0.00-0.03 Troponin I (TnI) levels [...] acute neurological disease, and persistent tachyarrhythmia.BASIC METABOLIC [id number] 17:56:00 Test Item Value Reference Range Comments SODIUM (BEAKER) (test 143 meq/L 136-145 rwkn=464) POTASSIUM (BEAKER) (test 3.8 meq/L 3.5-5.1 hbaz=811) CHLORIDE (BEAKER) (test 104 meq/L 98-107 gqcn=013) CO2 (BEAKER) (test 29 meq/L 22-29 gedg=151) BLOOD UREA NITROGEN 37 mg/dL 7-21 (BEAKER) (test ucsx=421) CREATININE (BEAKER) (test 2.45 mg/dL 0.57-1.25 inwm=112) GLUCOSE RANDOM (BEAKER) 107 mg/dL 70-105 (test htjc=445) CALCIUM (BEAKER) (test 8.6 mg/dL 8.4-10.2 iujj=042) EGFR (BEAKER) (test 24 mL/min/1.73 sq m ESTIMATED GFR IS NOT vlcv=6090) ACCURATE CREATININE CLEARANCE IN PREDICTING GLOMERULAR FILTRATION RATE. ESTIMATED GFR IS NOT APPLICABLE FOR DIALYSIS PATIENTS. [id number] 17:43:00 Test Item Value Reference Range Comments PHOSPHORUS (BEAKER) (test qncf=329) 4.8 mg/dL 2.3-4.7 [id number] 17:43:00 Test Item Value Reference Range Comments MAGNESIUM (BEAKER) (test eoxj=848) 2.4 mg/dL 1.6-2.6 [id number] 17:34:00 Test Item Value Reference Range Comments PARTIAL THROMBOPLASTIN TIME (BEAKER) (test 101.4 seconds 22.5-36.0 uavc=800) BLOOD GAS, [id number] 17:23:00 Test Item Value Reference Range Comments PH ARTERIAL (BEAKER) (test qmyh=790) 7.36 7.35-7.45 PCO2 ARTERIAL (BEAKER) (test azfu=457) 60 mmHg 35-45 PO2 ARTERIAL (BEAKER) (test neqp=913) 82 mmHg 80-90 O2 SATURATION ARTERIAL (BEAKER) (test tbui=640) 95.1 % 96.0-97.0 HCO3 ARTERIAL (BEAKER) (test roma=391) 33 mmol/L 21-29 BASE EXCESS ARTERIAL (BEAKER) (test zyff=905) 6.0 mmol/L -2.0-3.0 PATIENT TEMPERATURE (BEAKER) (test uays=5592) 37.4 C FIO2 (BEAKER) (test ydej=5924) 70.0 % GLUCOSE-STAT [id number] 17:20:00 Test Item Value Reference Range Comments GLUCOSE RANDOM (BEAKER) (test hvri=019) 106 mg/dL 70-110 POCT-GLUCOSE [id number] 16:32:00 Test Item Value Reference Range Comments POC-GLUCOSE METER (BEAKER) 115 mg/dL 70-110 TESTED AT [address] (test bnks=1938) [place] [address] VANCOMYCIN LEVEL, [id number] 16:10:00 Test Item Value Reference Range Comments VANCOMYCIN TROUGH (BEAKER) (test erta=259) 17.0 ug/mL 10.0-20.0 POCT-GLUCOSE [id number] 15:32:00 Test Item Value Reference Range Comments POC-GLUCOSE METER (BEAKER) 119 mg/dL 70-110 TESTED AT [address] (test uvzn=5591) [place] [id number] TROPONIN [id number] 13:14:00 Test Item Value Reference Range Comments TROPONIN I (BEAKER) (test jbgk=279) 81.57 ng/mL 0.00-0.03 Troponin I (TnI) levels [...] acute neurological disease, and persistent tachyarrhythmia.BASIC METABOLIC [id number] 12:49:00 Test Item Value Reference Range Comments SODIUM (BEAKER) (test 140 meq/L 136-145 pvqs=061) POTASSIUM (BEAKER) (test 3.6 meq/L 3.5-5.1 Specimen slightly ukrr=050) hemolyzed CHLORIDE (BEAKER) (test 104 meq/L 98-107 cici=494) CO2 (BEAKER) (test 27 meq/L 22-29 sbob=408) BLOOD UREA NITROGEN 37 mg/dL 7-21 (BEAKER) (test akfs=641) CREATININE (BEAKER) (test 2.35 mg/dL 0.57-1.25 Specimen slightly umda=244) hemolyzed GLUCOSE RANDOM (BEAKER) 192 mg/dL 70-105 (test vbih=540) CALCIUM (BEAKER) (test 8.1 mg/dL 8.4-10.2 pibr=070) EGFR (BEAKER) (test 25 mL/min/1.73 sq m ESTIMATED GFR IS NOT istn=8241) ACCURATE CREATININE CLEARANCE IN PREDICTING GLOMERULAR FILTRATION RATE. ESTIMATED GFR IS NOT APPLICABLE FOR DIALYSIS PATIENTS. [id number] 12:46:00 Test Item Value Reference Range Comments MAGNESIUM (BEAKER) (test 2.2 mg/dL 1.6-2.6 Specimen slightly hemolyzed cetm=120) [id number] 12:46:00 Test Item Value Reference Range Comments PHOSPHORUS (BEAKER) (test 4.6 mg/dL 2.3-4.7 Specimen slightly hemolyzed fkxs=783) POCT-GLUCOSE [id number] 12:16:00 Test Item Value Reference Range Comments POC-GLUCOSE METER (BEAKER) 210 mg/dL 70-110 TESTED AT [facility] [address] [facility] (test zbbi=3171) [facility] [address] POCT-GLUCOSE [id number] 12:16:00 Test Item Value Reference Range Comments POC-GLUCOSE METER (BEAKER) 247 mg/dL 70-110 TESTED AT [facility] [address] [facility] (test mvpj=3898) [facility] [address] POCT-GLUCOSE [id number] 12:16:00 Test Item Value Reference Range Comments POC-GLUCOSE METER (BEAKER) 174 mg/dL 70-110 TESTED AT [facility] [address] [facility] (test stli=2521) [facility] [address] BLOOD GAS, [id number] 12:14:00 Test Item Value Reference Range Comments PH ARTERIAL (BEAKER) (test bhep=278) 7.36 7.35-7.45 PCO2 ARTERIAL (BEAKER) (test qwbg=606) 56 mmHg 35-45 PO2 ARTERIAL (BEAKER) (test qpdj=174) 65 mmHg 80-90 O2 SATURATION ARTERIAL (BEAKER) (test gbuz=219) 90.4 % 96.0-97.0 HCO3 ARTERIAL (BEAKER) (test mmjk=437) 31 mmol/L 21-29 BASE EXCESS ARTERIAL (BEAKER) (test wlhe=707) 4.8 mmol/L -2.0-3.0 PATIENT TEMPERATURE (BEAKER) (test bdfn=8382) 38.0 C FIO2 (BEAKER) (test rniv=5751) 60.0 % [id number] 10:58:00 Test Item Value Reference Range Comments PARTIAL THROMBOPLASTIN TIME (BEAKER) (test 99.0 seconds 22.5-36.0 ngxd=415) RAD, CHEST, 1 VIEW, NON [id number] 08:30:00Reason for exam:->r/o pleural effusionShould this be [...] MDReport Verified Date/Time: 07/20/2017 08:30:52 Reading Location: [facility] Radiology ReadingRoom BLOOD GAS, [id number] 06 :37:00 Test Item Value Reference Range Comments PH ARTERIAL (BEAKER) (test ciyc=254) 7.38 7.35-7.45 PCO2 ARTERIAL (BEAKER) (test ywaz=821) 50 mmHg 35-45 PO2 ARTERIAL (BEAKER) (test rkku=775) 97 mmHg 80-90 O2 SATURATION ARTERIAL (BEAKER) (test efbu=333) 96.9 % 96.0-97.0 HCO3 ARTERIAL (BEAKER) (test dwag=769) 28 mmol/L 21-29 BASE EXCESS ARTERIAL (BEAKER) (test bjyo=960) 2.7 mmol/L -2.0-3.0 PATIENT TEMPERATURE (BEAKER) (test dsfk=9748) 37.8 C FIO2 (BEAKER) (test iszd=1192) 40.0 % POCT-GLUCOSE [id number] 06:15:00 Test Item Value Reference Range Comments POC-GLUCOSE METER (BEAKER) 114 mg/dL 70-110 TESTED AT [address] (test opym=9758) [place] [id number] POCT-GLUCOSE [id number] 06:15:00 Test Item Value Reference Range Comments POC-GLUCOSE METER (BEAKER) 140 mg/dL 70-110 TESTED AT [address] (test lyyh=4584) [facility] [address] POCT-GLUCOSE [id number] 05:23:00 Test Item Value Reference Range Comments POC-GLUCOSE METER (BEAKER) 77 mg/dL 70-110 TESTED AT [address] (test gjvn=3856) [facility] [address] CALCIUM, [id number] 04:34:00 Test Item Value Reference Range Comments CALCIUM IONIZED (BEAKER) (test velu=851) 1.14 mmol/L 1.12-1.27 PH, BLOOD (BEAKER) (test fjxe=9126) 7.34 BLOOD GAS, [id number] 04:32:00 Test Item Value Reference Range Comments PH ARTERIAL (BEAKER) (test hhbq=365) 7.32 7.35-7.45 PCO2 ARTERIAL (BEAKER) (test bcxn=537) 60 mmHg 35-45 PO2 ARTERIAL (BEAKER) (test cbcx=825) 92 mmHg 80-90 O2 SATURATION ARTERIAL (BEAKER) (test offa=449) 95.9 % 96.0-97.0 HCO3 ARTERIAL (BEAKER) (test ausu=158) 30 mmol/L 21-29 BASE EXCESS ARTERIAL (BEAKER) (test nbft=131) 3.2 mmol/L -2.0-3.0 PATIENT TEMPERATURE (BEAKER) (test pyao=8027) 37.8 C FIO2 (BEAKER) (test etey=7368) 40.0 % COMPREHENSIVE METABOLIC [id number] 04:24:00 Test Item Value Reference Range Comments TOTAL PROTEIN (BEAKER) 6.5 gm/dL 6.0-8.3 (test excc=721) ALBUMIN (BEAKER) (test 3.4 g/dL 3.5-5.0 qhua=3549) ALKALINE PHOSPHATASE 47 U/L 40-150 (BEAKER) (test phcu=611) BILIRUBIN TOTAL (BEAKER) 0.8 mg/dL 0.2-1.2 (test nikg=797) SODIUM (BEAKER) (test 142 meq/L 136-145 dgty=101) POTASSIUM (BEAKER) (test 3.7 meq/L 3.5-5.1 lzmp=258) CHLORIDE (BEAKER) (test 103 meq/L 98-107 vods=687) CO2 (BEAKER) (test 29 meq/L 22-29 peww=785) BLOOD UREA NITROGEN 34 mg/dL 7-21 (BEAKER) (test evyn=837) CREATININE (BEAKER) (test 2.44 mg/dL 0.57-1.25 mdeq=203) GLUCOSE RANDOM (BEAKER) 128 mg/dL 70-105 (test nehx=790) CALCIUM (BEAKER) (test 8.7 mg/dL 8.4-10.2 pwpv=255) AST (SGOT) (BEAKER) (test 158 U/L 5-34 sjaq=055) ALT (SGPT) (BEAKER) (test 63 U/L 6-55 vkoq=050) EGFR (BEAKER) (test 24 mL/min/1.73 sq m ESTIMATED GFR IS NOT tqdg=0931) ACCURATE CREATININE CLEARANCE IN PREDICTING GLOMERULAR FILTRATION RATE. ESTIMATED GFR IS NOT APPLICABLE FOR DIALYSIS PATIENTS. BASIC METABOLIC [id number] 04:24:00 Test Item Value Reference Range Comments SODIUM (BEAKER) (test 142 meq/L 136-145 jsfo=009) POTASSIUM (BEAKER) (test 3.7 meq/L 3.5-5.1 qgqg=089) CHLORIDE (BEAKER) (test 103 meq/L 98-107 pjps=571) CO2 (BEAKER) (test 29 meq/L 22-29 mfxs=473) BLOOD UREA NITROGEN 34 mg/dL 7-21 (BEAKER) (test hiau=483) CREATININE (BEAKER) (test 2.44 mg/dL 0.57-1.25 kwil=386) GLUCOSE RANDOM (BEAKER) 128 mg/dL 70-105 (test lqlw=111) CALCIUM (BEAKER) (test 8.7 mg/dL 8.4-10.2 bunk=681) EGFR (BEAKER) (test 24 mL/min/1.73 sq m ESTIMATED GFR IS NOT fjri=8430) ACCURATE CREATININE CLEARANCE IN PREDICTING GLOMERULAR FILTRATION RATE. ESTIMATED GFR IS NOT APPLICABLE FOR DIALYSIS PATIENTS. [id number] 04:22:00 Test Item Value Reference Range Comments PHOSPHORUS (BEAKER) (test mmjz=003) 5.2 mg/dL 2.3-4.7 [id number] 04:22:00 Test Item Value Reference Range Comments MAGNESIUM (BEAKER) (test oldo=899) 2.4 mg/dL 1.6-2.6 HEPATIC FUNCTION [id number] 04:22:00 Test Item Value Reference Range Comments TOTAL PROTEIN (BEAKER) (test yjlx=945) 6.5 gm/dL 6.0-8.3 ALBUMIN (BEAKER) (test jopp=6742) 3.4 g/dL 3.5-5.0 BILIRUBIN TOTAL (BEAKER) (test eagj=465) 0.8 mg/dL 0.2-1.2 BILIRUBIN DIRECT (BEAKER) (test rznl=572) 0.4 mg/dL 0.1-0.5 ALKALINE PHOSPHATASE (BEAKER) (test dcge=568) 47 U/L 40-150 AST (SGOT) (BEAKER) (test ksel=397) 158 U/L 5-34 ALT (SGPT) (BEAKER) (test rnoj=375) 63 U/L 6-55 [id number] 04:12:00 Test Item Value Reference Range Comments PARTIAL THROMBOPLASTIN TIME (BEAKER) (test 36.8 seconds 22.5-36.0 xnkp=037) Prior to initiating heparinPOCT-GLUCOSE [id number] 04:05:00 Test Item Value Reference Range Comments POC-GLUCOSE METER (BEAKER) 134 mg/dL 70-110 TESTED AT [address] (test fkia=9417) [facility] [address] POCT-GLUCOSE [id number] 04:05:00 Test Item Value Reference Range Comments POC-GLUCOSE METER (BEAKER) 122 mg/dL 70-110 TESTED AT [address] (test ijgd=4871) [facility] [address] POCT-GLUCOSE [id number] 04:05:00 Test Item Value Reference Range Comments POC-GLUCOSE METER (BEAKER) 201 mg/dL 70-110 TESTED AT [address] (test xhzx=9882) [facility] [address] CBC W/PLT COUNT & AUTO [id number] 04:02:00 Test Item Value Reference Range Comments WHITE BLOOD CELL COUNT (BEAKER) (test obce=491) 13.6 K/ L 3.5-10.5 RED BLOOD CELL COUNT (BEAKER) (test wqwt=616) 3.18 M/ L 3.93-5.22 HEMOGLOBIN (BEAKER) (test krcu=419) 9.7 GM/DL 11.2-15.7 HEMATOCRIT (BEAKER) (test kqxp=855) 31.0 % 34.1-44.9 MEAN CORPUSCULAR VOLUME (BEAKER) (test vduo=392) 97.5 fL 79.4-94.8 MEAN CORPUSCULAR HEMOGLOBIN (BEAKER) (test 30.5 pg 25.6-32.2 xgpc=004) MEAN CORPUSCULAR HEMOGLOBIN CONC (BEAKER) (test 31.3 GM/DL 32.2-35.5 cfkv=552) RED CELL DISTRIBUTION WIDTH (BEAKER) (test 13.3 % 11.7-14.4 dyhx=277) PLATELET COUNT (BEAKER) (test aind=374) 167 K/CU MM 150-450 MEAN PLATELET VOLUME (BEAKER) (test toil=488) 11.0 fL 9.4-12.3 NUCLEATED RED BLOOD CELLS (BEAKER) (test 0 /100 WBC 0-0 xhlm=189) NEUTROPHILS RELATIVE PERCENT (BEAKER) (test 85 % wueg=798) LYMPHOCYTES RELATIVE PERCENT (BEAKER) (test 7 % rmnl=904) MONOCYTES RELATIVE PERCENT (BEAKER) (test 7 % qqzq=765) EOSINOPHILS RELATIVE PERCENT (BEAKER) (test 0 % ranh=061) BASOPHILS RELATIVE PERCENT (BEAKER) (test 0 % dtjo=627) NEUTROPHILS ABSOLUTE COUNT (BEAKER) (test 11.61 K/ L 1.56-6.13 tkjl=279) LYMPHOCYTES ABSOLUTE COUNT (BEAKER) (test 0.98 K/ L 1.18-3.74 xdjj=313) MONOCYTES ABSOLUTE COUNT (BEAKER) (test 0.92 K/ L 0.24-0.36 icwp=339) EOSINOPHILS ABSOLUTE COUNT (BEAKER) (test 0.00 K/ L 0.04-0.36 ncuw=705) BASOPHILS ABSOLUTE COUNT (BEAKER) (test 0.02 K/ L 0.01-0.08 nzbk=677) IMMATURE GRANULOCYTES-RELATIVE PERCENT (BEAKER) 1 % 0-1 (test rekh=7046) [id number] 02:01:00 Test Item Value Reference Range Comments PARTIAL THROMBOPLASTIN TIME (BEAKER) (test 32.5 seconds 22.5-36.0 mald=656) BLOOD GAS, [id number] 01:09:00 Test Item Value Reference Range Comments PH ARTERIAL (BEAKER) (test vkic=171) 7.35 7.35-7.45 PCO2 ARTERIAL (BEAKER) (test cjlb=308) 50 mmHg 35-45 PO2 ARTERIAL (BEAKER) (test abkb=510) 86 mmHg 80-90 O2 SATURATION ARTERIAL (BEAKER) (test opzx=570) 95.3 % 96.0-97.0 HCO3 ARTERIAL (BEAKER) (test bbex=813) 27 mmol/L 21-29 BASE EXCESS ARTERIAL (BEAKER) (test wtwu=447) 1.0 mmol/L -2.0-3.0 PATIENT TEMPERATURE (BEAKER) (test ujib=7216) 38.2 C FIO2 (BEAKER) (test qdvr=4899) 40.0 % POCT-GLUCOSE [id number] 01:04:00 Test Item Value Reference Range Comments POC-GLUCOSE METER (BEAKER) 199 mg/dL 70-110 TESTED AT [address] (test nmzd=1358) [facility] [address] [id number] 00:14:00 Test Item Value Reference Range Comments MAGNESIUM (BEAKER) (test 2.3 mg/dL 1.6-2.6 Specimen slightly hemolyzed fkiy=637) [id number] 00:14:00 Test Item Value Reference Range Comments POTASSIUM (BEAKER) (test 3.8 meq/L 3.5-5.1 Specimen slightly hemolyzed snue=211) CALCIUM, [id number] 00:11:00 Test Item Value Reference Range Comments CALCIUM IONIZED (BEAKER) (test klyt=249) 1.06 mmol/L 1.12-1.27 PH, BLOOD (BEAKER) (test iysz=4491) 7.35 BLOOD GAS, [id number] 00:11:00 Test Item Value Reference Range Comments PH ARTERIAL (BEAKER) (test hyac=392) 7.33 7.35-7.45 PCO2 ARTERIAL (BEAKER) (test onck=172) 53 mmHg 35-45 PO2 ARTERIAL (BEAKER) (test wafg=872) 58 mmHg 80-90 O2 SATURATION ARTERIAL (BEAKER) (test prcj=906) 86.1 % 96.0-97.0 HCO3 ARTERIAL (BEAKER) (test fkzw=106) 27 mmol/L 21-29 BASE EXCESS ARTERIAL (BEAKER) (test nxet=166) 0.9 mmol/L -2.0-3.0 PATIENT TEMPERATURE (BEAKER) (test txyx=0958) 38.0 C FIO2 (BEAKER) (test exiy=2461) 40.0 % Post extubation ABGPOCT-GLUCOSE [id number] 23:58:00 Test Item Value Reference Range Comments POC-GLUCOSE METER (BEAKER) 202 mg/dL 70-110 TESTED AT [address] (test rxqh=0802) [facility] [address] POCT-GLUCOSE [id number] 23:58:00 Test Item Value Reference Range Comments POC-GLUCOSE METER (BEAKER) 86 mg/dL 70-110 TESTED AT [address] (test vhbm=4070) [facility] [address] BASIC METABOLIC [id number] 22:18:00 Test Item Value Reference Range Comments SODIUM (BEAKER) (test 141 meq/L 136-145 kiyl=201) POTASSIUM (BEAKER) (test 3.6 meq/L 3.5-5.1 Specimen slightly wwoa=101) hemolyzed CHLORIDE (BEAKER) (test 105 meq/L 98-107 upju=406) CO2 (BEAKER) (test 26 meq/L 22-29 tsds=022) BLOOD UREA NITROGEN 31 mg/dL 7-21 (BEAKER) (test pfpi=723) CREATININE (BEAKER) (test 2.09 mg/dL 0.57-1.25 Specimen slightly mceg=565) hemolyzed GLUCOSE RANDOM (BEAKER) 81 mg/dL 70-105 (test jzpp=453) CALCIUM (BEAKER) (test 8.3 mg/dL 8.4-10.2 skvx=960) EGFR (BEAKER) (test 28 mL/min/1.73 sq m ESTIMATED GFR IS NOT zmnx=5907) ACCURATE CREATININE CLEARANCE IN PREDICTING GLOMERULAR FILTRATION RATE. ESTIMATED GFR IS NOT APPLICABLE FOR DIALYSIS PATIENTS. [id number] 22:17:00 Test Item Value Reference Range Comments PHOSPHORUS (BEAKER) (test 5.1 mg/dL 2.3-4.7 Specimen slightly hemolyzed mfml=310) POCT-GLUCOSE [id number] 20:57:00 Test Item Value Reference Range Comments POC-GLUCOSE METER (BEAKER) 90 mg/dL 70-110 TESTED AT [facility] [address] [facility] (test mkzt=6107) [facility] [address] BLOOD GAS, [id number] 20:52:00 Test Item Value Reference Range Comments PH ARTERIAL (BEAKER) (test nzwn=837) 7.35 7.35-7.45 PCO2 ARTERIAL (BEAKER) (test bzbu=488) 49 mmHg 35-45 PO2 ARTERIAL (BEAKER) (test gztx=287) 100 mmHg 80-90 O2 SATURATION ARTERIAL (BEAKER) (test nbfr=179) 97.0 % 96.0-97.0 HCO3 ARTERIAL (BEAKER) (test snvw=240) 26 mmol/L 21-29 BASE EXCESS ARTERIAL (BEAKER) (test modj=556) 0.3 mmol/L -2.0-3.0 PATIENT TEMPERATURE (BEAKER) (test fwpc=9342) 37.7 C FIO2 (BEAKER) (test yiet=6195) 40.0 % [id number] 18:57:00 Test Item Value Reference Range Comments PARTIAL THROMBOPLASTIN TIME (BEAKER) (test 70.7 seconds 22.5-36.0 mzhg=568) BLOOD GAS, [id number] 16:52:00 Test Item Value Reference Range Comments PH ARTERIAL (BEAKER) (test xenu=654) 7.37 7.35-7.45 PCO2 ARTERIAL (BEAKER) (test fkcf=646) 47 mmHg 35-45 PO2 ARTERIAL (BEAKER) (test gpkg=975) 117 mmHg 80-90 O2 SATURATION ARTERIAL (BEAKER) (test ldyg=264) 98.0 % 96.0-97.0 HCO3 ARTERIAL (BEAKER) (test ztaw=532) 26 mmol/L 21-29 BASE EXCESS ARTERIAL (BEAKER) (test mgyr=099) 0.5 mmol/L -2.0-3.0 PATIENT TEMPERATURE (BEAKER) (test pieo=9644) 37.7 C FIO2 (BEAKER) (test cvac=1532) 60.0 % GLUCOSE-STAT [id number] 16:52:00 Test Item Value Reference Range Comments GLUCOSE RANDOM (BEAKER) (test awbk=829) 149 mg/dL 70-110 [id number] 16:22:00 Test Item Value Reference Range Comments PARTIAL THROMBOPLASTIN TIME (BEAKER) (test 197.7 seconds 22.5-36.0 gdjt=641) PROTHROMBIN [id number] 16:15:00 Test Item Value Reference Range Comments PROTIME (BEAKER) (test bnxg=833) 16.4 seconds 11.7-14.7 INR (BEAKER) (test unvp=422) 1.3 <=5.9 RECOMMENDED COUMADIN/WARFARIN INR THERAPY RANGESSTANDARD DOSE: 2.0 - 3.0 Includes: PROPHYLAXIS forvenous thrombosis, systemic embolization; TREATMENT for venous thrombosis and/or pulmonary embolus.HIGH RISK: Target INR is 2.5-3.5 for patients with mechanical heart valves.[id number] 16:15:00 Test Item Value Reference Range Comments FIBRINOGEN LEVEL (BEAKER) (test mmqp=131) 303 mg/dl 225-434 [id number] 16:15:00 Test Item Value Reference Range Comments MAGNESIUM (BEAKER) (test 3.0 mg/dL 1.6-2.6 Specimen moderately hemolyzed shvc=041) [id number] 16:15:00 Test Item Value Reference Range Comments PHOSPHORUS (BEAKER) (test 6.6 mg/dL 2.3-4.7 Specimen moderately hemolyzed fiuh=320) BASIC METABOLIC [id number] 16:15:00 Test Item Value Reference Range Comments SODIUM (BEAKER) (test 144 meq/L 136-145 xiso=366) POTASSIUM (BEAKER) (test 4.1 meq/L 3.5-5.1 Specimen moderately tzcm=638) hemolyzed CHLORIDE (BEAKER) (test 106 meq/L 98-107 btvg=202) CO2 (BEAKER) (test 27 meq/L 22-29 zllv=806) BLOOD UREA NITROGEN 30 mg/dL 7-21 (BEAKER) (test gfgu=755) CREATININE (BEAKER) (test 1.99 mg/dL 0.57-1.25 Specimen moderately unsp=320) hemolyzed GLUCOSE RANDOM (BEAKER) 165 mg/dL 70-105 (test txtb=397) CALCIUM (BEAKER) (test 8.6 mg/dL 8.4-10.2 ptld=213) EGFR (BEAKER) (test 30 mL/min/1.73 sq m ESTIMATED GFR IS NOT fbrg=9719) ACCURATE CREATININE CLEARANCE IN PREDICTING GLOMERULAR FILTRATION RATE. ESTIMATED GFR IS NOT APPLICABLE FOR DIALYSIS PATIENTS. CBC (HEMOGRAM ONLY)2017-07-19 16:13:00 Test Item Value Reference Range Comments WHITE BLOOD CELL COUNT (BEAKER) (test scyv=103) 14.5 K/ L 3.5-10.5 RED BLOOD CELL COUNT (BEAKER) (test tpee=060) 3.55 M/ L 3.93-5.22 HEMOGLOBIN (BEAKER) (test fnol=813) 10.7 GM/DL 11.2-15.7 HEMATOCRIT (BEAKER) (test kqal=603) 34.9 % 34.1-44.9 MEAN CORPUSCULAR VOLUME (BEAKER) (test arne=564) 98.3 fL 79.4-94.8 MEAN CORPUSCULAR HEMOGLOBIN (BEAKER) (test 30.1 pg 25.6-32.2 lgzk=206) MEAN CORPUSCULAR HEMOGLOBIN CONC (BEAKER) (test 30.7 GM/DL 32.2-35.5 iakz=001) RED CELL DISTRIBUTION WIDTH (BEAKER) (test 13.3 % 11.7-14.4 lgbb=255) PLATELET COUNT (BEAKER) (test fsar=250) 235 K/CU MM 150-450 MEAN PLATELET VOLUME (BEAKER) (test cbwd=008) 11.0 fL 9.4-12.3 NUCLEATED RED BLOOD CELLS (BEAKER) (test 0 /100 WBC 0-0 blnh=675) LACTIC ACID, ARTERIAL, WHOLE [id number] 16:12:00 Test Item Value Reference Range Comments LACTATE BLOOD ARTERIAL (2) 2.0 mmol/L 0.5-2.2 Specimen slightly hemolyzed (BEAKER) (test szpz=8967) Effective 08/06/2015: Units/Reference Range ChangeNew: 0.5-2.2 mmol/L Previous: 5 -20 mg/dLCALCIUM, [id number] 15:54:00 Test Item Value Reference Range Comments CALCIUM IONIZED (BEAKER) (test mmfw=748) 1.14 mmol/L 1.12-1.27 PH, BLOOD (BEAKER) (test wjuz=6178) 7.24 SODIUM NA-STAT [id number] 15:54:00 Test Item Value Reference Range Comments SODIUM (BEAKER) (test erhf=822) 143 meq/L 135-148 POTASSIUM-STAT [id number] 15:54:00 Test Item Value Reference Range Comments POTASSIUM (BEAKER) (test lcbx=249) 3.9 meq/L 3.6-5.5 BLOOD GAS, [id number] 15:54:00 Test Item Value Reference Range Comments PH ARTERIAL (BEAKER) (test opnw=976) 7.26 7.35-7.45 PCO2 ARTERIAL (BEAKER) (test youk=138) 69 mmHg 35-45 PO2 ARTERIAL (BEAKER) (test tihg=069) 74 mmHg 80-90 O2 SATURATION ARTERIAL (BEAKER) (test kvxo=928) 93.4 % 96.0-97.0 HCO3 ARTERIAL (BEAKER) (test kvcu=960) 31 mmol/L 21-29 BASE EXCESS ARTERIAL (BEAKER) (test nmee=293) 2.0 mmol/L -2.0-3.0 PATIENT TEMPERATURE (BEAKER) (test obzx=9650) 35.6 C FIO2 (BEAKER) (test bfyh=0527) 50.0 % GLUCOSE-STAT [id number] 15:54:00 Test Item Value Reference Range Comments GLUCOSE RANDOM (BEAKER) (test alop=786) 169 mg/dL 70-110 HGB/HCT (H&H) - STAT [id number] 15:54:00 Test Item Value Reference Range Comments HEMOGLOBIN (BEAKER) (test mfod=433) 11.7 g/dL 12.0-15.0 HEMATOCRIT (BEAKER) (test ywed=289) 34.0 % 36.0-45.0 RAD, CHEST, 1 VIEW, NON [id number] 15:49:00Reason for exam:->sp PCI/ intubatedFINAL REPORT TECHNIQUE: [...] [place] Verified Date/Time: 07/19/2017 15:49:37 Reading Location: [facility] RadiologyReading Room [id number] 14:13:00 Test Item Value Reference Range Comments ACTIVATED CLOTTING TIME 131 sec TESTED AT [facility] [address] (test ocnj=986) [facility] [address] TROPONIN [id number] 12:32:00 Test Item Value Reference Range Comments TROPONIN I (BEAKER) (test ndng=930) 119.79 ng/mL 0.00-0.03 Troponin I (TnI) levels [...] and persistent tachyarrhythmia.CREATINE KINASE (CK), TOTAL AND [id number] 12:26:00 Test Item Value Reference Range Comments CREATINE KINASE TOTAL (BEAKER) (test rrgr=942) 2405 U/L 29-200 CREATINE KINASE-MB (BEAKER) (test onov=066) 65.6 ng/mL 0.0-6.6 CREATINE KINASE-MB INDEX (BEAKER) (test xpuf=854) 2.7 % CK-MB Reference Range:<6.7 Normal6.7-10.0 Borderline>10.0 AbnormalPOCT-GLUCOSE [id number] 12:20:00 Test Item Value Reference Range Comments POC-GLUCOSE METER (BEAKER) 183 mg/dL 70-110 TESTED AT [facility] [address] [facility] (test mitx=2993) [facility] [address] [id number] 12:03:00 Test Item Value Reference Range Comments MAGNESIUM (BEAKER) (test mquq=717) 2.8 mg/dL 1.6-2.6 [id number] 12:03:00 Test Item Value Reference Range Comments PHOSPHORUS (BEAKER) (test xkhe=605) 5.3 mg/dL 2.3-4.7 BASIC METABOLIC [id number] 12:03:00 Test Item Value Reference Range Comments SODIUM (BEAKER) (test 143 meq/L 136-145 hcch=553) POTASSIUM (BEAKER) (test 3.8 meq/L 3.5-5.1 haki=342) CHLORIDE (BEAKER) (test 106 meq/L 98-107 kufy=397) CO2 (BEAKER) (test 27 meq/L 22-29 ohxs=796) BLOOD UREA NITROGEN 29 mg/dL 7-21 (BEAKER) (test kfur=608) CREATININE (BEAKER) (test 1.92 mg/dL 0.57-1.25 nole=626) GLUCOSE RANDOM (BEAKER) 188 mg/dL 70-105 (test frqa=752) CALCIUM (BEAKER) (test 8.7 mg/dL 8.4-10.2 ueqc=969) EGFR (BEAKER) (test 31 mL/min/1.73 sq m ESTIMATED GFR IS NOT uadg=0934) ACCURATE CREATININE CLEARANCE IN PREDICTING GLOMERULAR FILTRATION RATE. ESTIMATED GFR IS NOT APPLICABLE FOR DIALYSIS PATIENTS. POCT-GLUCOSE [id number] 11:19:00 Test Item Value Reference Range Comments POC-GLUCOSE METER (BEAKER) 190 mg/dL 70-110 TESTED AT [facility] [address] [place] [address] (test eryj=9822) [facility] [address] POCT-GLUCOSE [id number] 10:12:00 Test Item Value Reference Range Comments POC-GLUCOSE METER (BEAKER) 197 mg/dL 70-110 TESTED AT [address] (test teuo=9995) [facility] [address] POCT-GLUCOSE [id number] 09:21:00 Test Item Value Reference Range Comments POC-GLUCOSE METER (BEAKER) 221 mg/dL 70-110 TESTED AT [address] (test rhos=8551) [facility] [address] LACTIC ACID, ARTERIAL, WHOLE [id number] 09:19:00 Test Item Value Reference Range Comments LACTATE BLOOD ARTERIAL (2) (BEAKER) (test 2.4 mmol/L 0.5-2.2 zanp=4510) Effective 08/06/2015: Units/Reference Range ChangeNew: 0.5-2.2 mmol/L Previous: 5 -20 mg/dLPROTHROMBIN [id number] 08:44:00 Test Item Value Reference Range Comments PROTIME (BEAKER) (test xadh=848) 14.4 seconds 11.7-14.7 INR (BEAKER) (test wwvw=835) 1.1 <=5.9 RECOMMENDED COUMADIN/WARFARIN INR THERAPY RANGESSTANDARD DOSE: 2.0 - 3.0 Includes: PROPHYLAXIS forvenous thrombosis, systemic embolization; TREATMENT for venous thrombosis and/or pulmonary embolus.HIGH RISK: Target INR is 2.5-3.5 for patients with mechanical heart valves.[id number] 08:44:00 Test Item Value Reference Range Comments FIBRINOGEN LEVEL (BEAKER) (test qidn=122) 367 mg/dl 225-434 [id number] 08:44:00 Test Item Value Reference Range Comments PARTIAL THROMBOPLASTIN TIME (BEAKER) (test 30.0 seconds 22.5-36.0 lfpq=037) POCT-GLUCOSE [id number] 07:52:00 Test Item Value Reference Range Comments POC-GLUCOSE METER (STEVAN) 215 mg/dL 70-110 TESTED AT [facility] [address] (test hepq=9097) [facility] [address] CT, CHEST, WITHOUT [id number] 07:50:00KEEP PATIENT ON CT TABLE. CALL RADIOLOGIST [...] Verified Date /Time: 07/19/2017 07:50:43 Reading Location: [facility] Diagnostic Imaging Reading Room - [facility] F1 1120 Electronically signed by: LYNNETTE CASTRO MD on 07:50 AMPOCT-GLUCOSE [id number] 07:37:00 Test Item Value Reference Range Comments POC-GLUCOSE METER (BEAKER) 225 mg/dL 70-110 TESTED AT [facility] [address] [place] [address] (test yhjd=8344) [facility] [address] RAD, CHEST, 1 VIEW, NON [id number] 04:04:00Reason for exam:->v tach/ iabpShould this be [...] MDReport Verified Date/Time: 07/19/2017 04:04:19 Reading Location: [facility] B1 C013X Ortho Consult Reading Room [id number] 03:59:00 Test Item Value Reference Range Comments PHOSPHORUS (BEAKER) (test xguk=099) 4.4 mg/dL 2.3-4.7 [id number] 03:59:00 Test Item Value Reference Range Comments MAGNESIUM (BEAKER) (test xlpc=382) 2.5 mg/dL 1.6-2.6 BASIC METABOLIC [id number] 03:59:00 Test Item Value Reference Range Comments SODIUM (BEAKER) (test 145 meq/L 136-145 jwoi=611) POTASSIUM (BEAKER) (test 3.6 meq/L 3.5-5.1 jyrr=033) CHLORIDE (BEAKER) (test 106 meq/L 98-107 rojg=624) CO2 (BEAKER) (test 25 meq/L 22-29 rcxf=461) BLOOD UREA NITROGEN 28 mg/dL 7-21 (BEAKER) (test zodq=592) CREATININE (BEAKER) (test 1.93 mg/dL 0.57-1.25 bbxv=131) GLUCOSE RANDOM (BEAKER) 216 mg/dL 70-105 (test eted=931) CALCIUM (BEAKER) (test 9.0 mg/dL 8.4-10.2 wlfo=195) EGFR (BEAKER) (test 31 mL/min/1.73 sq m ESTIMATED GFR IS NOT kkvl=7091) ACCURATE CREATININE CLEARANCE IN PREDICTING GLOMERULAR FILTRATION RATE. ESTIMATED GFR IS NOT APPLICABLE FOR DIALYSIS PATIENTS. B-TYPE NATRIURETIC FACTOR (BNP)2017-07-19 03:10:00 Test Item Value Reference Range Comments B-TYPE NATRIURETIC PEPTIDE (BEAKER) (test 2662 pg/mL 0-100 jzre=075) HEPATIC FUNCTION [id number] 03:04:00 Test Item Value Reference Range Comments TOTAL PROTEIN (BEAKER) (test lash=649) 6.6 gm/dL 6.0-8.3 ALBUMIN (BEAKER) (test naql=8088) 3.5 g/dL 3.5-5.0 BILIRUBIN TOTAL (BEAKER) (test xgjl=984) 0.4 mg/dL 0.2-1.2 BILIRUBIN DIRECT (BEAKER) (test eumq=569) 0.2 mg/dL 0.1-0.5 ALKALINE PHOSPHATASE (BEAKER) (test qmbb=585) 57 U/L 40-150 AST (SGOT) (BEAKER) (test cndw=976) 359 U/L 5-34 ALT (SGPT) (BEAKER) (test tamo=159) 99 U/L 6-55 CREATINE KINASE (CK)2017-07-19 03:04:00 Test Item Value Reference Range Comments CREATINE KINASE TOTAL (BEAKER) (test exrj=668) 2888 U/L 29-200 CBC W/PLT COUNT & AUTO [id number] 02:56:00 Test Item Value Reference Range Comments WHITE BLOOD CELL COUNT (BEAKER) (test bodx=690) 19.0 K/ L 3.5-10.5 RED BLOOD CELL COUNT (BEAKER) (test nhzn=868) 3.69 M/ L 3.93-5.22 HEMOGLOBIN (BEAKER) (test qqwg=832) 11.2 GM/DL 11.2-15.7 HEMATOCRIT (BEAKER) (test xzyr=007) 35.3 % 34.1-44.9 MEAN CORPUSCULAR VOLUME (BEAKER) (test gaeq=624) 95.7 fL 79.4-94.8 MEAN CORPUSCULAR HEMOGLOBIN (BEAKER) (test 30.4 pg 25.6-32.2 uuwe=570) MEAN CORPUSCULAR HEMOGLOBIN CONC (BEAKER) (test 31.7 GM/DL 32.2-35.5 sqft=980) RED CELL DISTRIBUTION WIDTH (BEAKER) (test 13.1 % 11.7-14.4 bxsr=398) PLATELET COUNT (BEAKER) (test frne=758) 253 K/CU MM 150-450 MEAN PLATELET VOLUME (BEAKER) (test sguw=298) 10.0 fL 9.4-12.3 NUCLEATED RED BLOOD CELLS (BEAKER) (test 0 /100 WBC 0-0 hsgb=335) NEUTROPHILS RELATIVE PERCENT (BEAKER) (test 86 % kbha=530) LYMPHOCYTES RELATIVE PERCENT (BEAKER) (test 6 % dwyj=166) MONOCYTES RELATIVE PERCENT (BEAKER) (test 7 % spvd=320) EOSINOPHILS RELATIVE PERCENT (BEAKER) (test 0 % yrmw=086) BASOPHILS RELATIVE PERCENT (BEAKER) (test 0 % yxzm=331) NEUTROPHILS ABSOLUTE COUNT (BEAKER) (test 16.34 K/ L 1.56-6.13 akqw=339) LYMPHOCYTES ABSOLUTE COUNT (BEAKER) (test 1.15 K/ L 1.18-3.74 wtqr=141) MONOCYTES ABSOLUTE COUNT (BEAKER) (test 1.39 K/ L 0.24-0.36 fasd=775) EOSINOPHILS ABSOLUTE COUNT (BEAKER) (test 0.00 K/ L 0.04-0.36 uwys=508) BASOPHILS ABSOLUTE COUNT (BEAKER) (test 0.02 K/ L 0.01-0.08 vvuk=052) IMMATURE GRANULOCYTES-RELATIVE PERCENT (BEAKER) 0 % 0-1 (test uqyq=9123) CALCIUM, [id number] 02:49:00 Test Item Value Reference Range Comments CALCIUM IONIZED (BEAKER) (test wfvt=522) 1.14 mmol/L 1.12-1.27 PH, BLOOD (BEAKER) (test otjd=2147) 7.36 CBC (HEMOGRAM ONLY)2017-07-19 02:48:00 Test Item Value Reference Range Comments WHITE BLOOD CELL COUNT (BEAKER) (test jheo=012) 19.0 K/ L 3.5-10.5 RED BLOOD CELL COUNT (BEAKER) (test hres=241) 3.69 M/ L 3.93-5.22 HEMOGLOBIN (BEAKER) (test fjzj=852) 11.2 GM/DL 11.2-15.7 HEMATOCRIT (BEAKER) (test rvth=930) 35.3 % 34.1-44.9 MEAN CORPUSCULAR VOLUME (BEAKER) (test uzsj=241) 95.7 fL 79.4-94.8 MEAN CORPUSCULAR HEMOGLOBIN (BEAKER) (test 30.4 pg 25.6-32.2 ynmp=348) MEAN CORPUSCULAR HEMOGLOBIN CONC (BEAKER) (test 31.7 GM/DL 32.2-35.5 mitd=317) RED CELL DISTRIBUTION WIDTH (BEAKER) (test 13.1 % 11.7-14.4 wxxk=295) PLATELET COUNT (BEAKER) (test xbkg=182) 253 K/CU MM 150-450 MEAN PLATELET VOLUME (BEAKER) (test ocmt=196) 10.0 fL 9.4-12.3 NUCLEATED RED BLOOD CELLS (BEAKER) (test 0 /100 WBC 0-0 gbcb=367) BLOOD GAS, [id number] 02:48:00 Test Item Value Reference Range Comments PH ARTERIAL (BEAKER) (test lpow=723) 7.35 7.35-7.45 PCO2 ARTERIAL (BEAKER) (test jmuv=296) 55 mmHg 35-45 PO2 ARTERIAL (BEAKER) (test jfwu=595) 73 mmHg 80-90 O2 SATURATION ARTERIAL (BEAKER) (test tqwz=330) 93.3 % 96.0-97.0 HCO3 ARTERIAL (BEAKER) (test uoqk=033) 30 mmol/L 21-29 BASE EXCESS ARTERIAL (BEAKER) (test kbjj=262) 3.1 mmol/L -2.0-3.0 PATIENT TEMPERATURE (BEAKER) (test ynmp=2132) 37.5 C FIO2 (BEAKER) (test siwo=9539) 40.0 % POCT-GLUCOSE [id number] 02:21:00 Test Item Value Reference Range Comments POC-GLUCOSE METER (BEAKER) 184 mg/dL 70-110 TESTED AT [address] (test xosd=0260) [facility] [address] POCT-GLUCOSE [id number] 01:15:00 Test Item Value Reference Range Comments POC-GLUCOSE METER (BEAKER) 173 mg/dL 70-110 TESTED AT [address] (test tafq=0407) [facility] [address] [id number] 00:55:00 Test Item Value Reference Range Comments PHOSPHORUS (BEAKER) (test fmfr=723) 3.3 mg/dL 2.3-4.7 [id number] 00:55:00 Test Item Value Reference Range Comments MAGNESIUM (BEAKER) (test tqve=729) 1.8 mg/dL 1.6-2.6 BASIC METABOLIC [id number] 00:55:00 Test Item Value Reference Range Comments SODIUM (BEAKER) (test 143 meq/L 136-145 trmw=446) POTASSIUM (BEAKER) (test 3.9 meq/L 3.5-5.1 ejwv=290) CHLORIDE (BEAKER) (test 106 meq/L 98-107 mylk=311) CO2 (BEAKER) (test 27 meq/L 22-29 wswq=136) BLOOD UREA NITROGEN 27 mg/dL 7-21 (BEAKER) (test fsrn=186) CREATININE (BEAKER) (test 1.90 mg/dL 0.57-1.25 scuo=714) GLUCOSE RANDOM (BEAKER) 181 mg/dL 70-105 (test fsda=603) CALCIUM (BEAKER) (test 8.9 mg/dL 8.4-10.2 rkqm=359) EGFR (BEAKER) (test 32 mL/min/1.73 sq m ESTIMATED GFR IS NOT auzq=3274) ACCURATE CREATININE CLEARANCE IN PREDICTING GLOMERULAR FILTRATION RATE. ESTIMATED GFR IS NOT APPLICABLE FOR DIALYSIS PATIENTS. POCT-GLUCOSE [id number] 00:11:00 Test Item Value Reference Range Comments POC-GLUCOSE METER (BEAKER) 177 mg/dL 70-110 TESTED AT [address] (test lomi=2038) [facility] [address] POCT-GLUCOSE [id number] 23:25:00 Test Item Value Reference Range Comments POC-GLUCOSE METER (BEAKER) 206 mg/dL 70-110 TESTED AT [address] (test jkxh=7886) [facility] [address] POCT-GLUCOSE [id number] 22:19:00 Test Item Value Reference Range Comments POC-GLUCOSE METER (BEAKER) 243 mg/dL 70-110 TESTED AT [address] (test jyqu=4712) [facility] [address] POCT-GLUCOSE [id number] 21:37:00 Test Item Value Reference Range Comments POC-GLUCOSE METER (BEAKER) 235 mg/dL 70-110 TESTED AT [address] (test urwp=3499) [facility] [address] POCT-GLUCOSE [id number] 20:04:00 Test Item Value Reference Range Comments POC-GLUCOSE METER (BEAKER) 216 mg/dL 70-110 TESTED AT [address] (test gafs=5303) [facility] [address] POCT-GLUCOSE [id number] 18:40:00 Test Item Value Reference Range Comments POC-GLUCOSE METER (BEAKER) 271 mg/dL 70-110 TESTED AT [address] (test cwmj=0889) [facility] [address] [id number] 18:32:00 Test Item Value Reference Range Comments MAGNESIUM (BEAKER) (test 1.9 mg/dL 1.6-2.6 Specimen slightly hemolyzed yavc=787) [id number] 18:32:00 Test Item Value Reference Range Comments PHOSPHORUS (BEAKER) (test 3.1 mg/dL 2.3-4.7 Specimen slightly hemolyzed almg=024) BASIC METABOLIC [id number] 18:32:00 Test Item Value Reference Range Comments SODIUM (BEAKER) (test 142 meq/L 136-145 pial=821) POTASSIUM (BEAKER) (test 3.9 meq/L 3.5-5.1 Specimen slightly edpj=575) hemolyzed CHLORIDE (BEAKER) (test 107 meq/L 98-107 qzhk=143) CO2 (BEAKER) (test 24 meq/L 22-29 puzm=190) BLOOD UREA NITROGEN 22 mg/dL 7-21 (BEAKER) (test oyxy=409) CREATININE (BEAKER) (test 1.55 mg/dL 0.57-1.25 Specimen slightly llyb=319) hemolyzed GLUCOSE RANDOM (BEAKER) 242 mg/dL 70-105 (test kslj=143) CALCIUM (BEAKER) (test 8.8 mg/dL 8.4-10.2 yegp=540) EGFR (BEAKER) (test 40 mL/min/1.73 sq m ESTIMATED GFR IS NOT exbg=1761) ACCURATE CREATININE CLEARANCE IN PREDICTING GLOMERULAR FILTRATION RATE. ESTIMATED GFR IS NOT APPLICABLE FOR DIALYSIS PATIENTS. BLOOD GAS, [id number] 18:24:00 Test Item Value Reference Range Comments PH ARTERIAL (BEAKER) (test nosx=213) 7.34 7.35-7.45 PCO2 ARTERIAL (BEAKER) (test mlbc=117) 51 mmHg 35-45 PO2 ARTERIAL (BEAKER) (test ajgt=215) 57 mmHg 80-90 O2 SATURATION ARTERIAL (BEAKER) (test auum=162) 87.5 % 96.0-97.0 HCO3 ARTERIAL (BEAKER) (test uwmv=066) 27 mmol/L 21-29 BASE EXCESS ARTERIAL (BEAKER) (test iwpy=219) 1.0 mmol/L -2.0-3.0 PATIENT TEMPERATURE (BEAKER) (test nyub=4679) 37.2 C FIO2 (BEAKER) (test cnxz=3587) 40.0 % POCT-GLUCOSE [id number] 17:14:00 Test Item Value Reference Range Comments POC-GLUCOSE METER (BEAKER) 299 mg/dL 70-110 TESTED AT [address] (test bayu=6760) [facility] [address] LACTIC ACID, ARTERIAL, WHOLE [id number] 16:37:00 Test Item Value Reference Range Comments LACTATE BLOOD ARTERIAL (2) 2.9 mmol/L 0.5-2.2 Specimen slightly hemolyzed (BEAKER) (test zwao=9324) Effective 08/06/2015: Units/Reference Range ChangeNew: 0.5-2.2 mmol/L Previous: 5 -20 mg/[id number] 15:45:00 Test Item Value Reference Range Comments GLUCOSE RANDOM (BEAKER) (test itxh=425) 439 mg/dL 70-105 If last glucose was less than 500, may do bedside glucose instead of serum glucose.POCT-GLUCOSE [id number] 15:21:00 Test Item Value Reference Range Comments POC-GLUCOSE METER (BEAKER) 374 mg/dL 70-110 Notified PAULA BERGER/TESTED AT [facility] (test hfot=7978) [address] [place] [address] [id number] 15:14:00 Test Item Value Reference Range Comments POTASSIUM (BEAKER) (test wrxy=647) 4.0 meq/L 3.5-5.1 If last glucose was less than 500, may do bedside glucose instead of serum glucose.URINALYSIS W/ [id number] 15:03:00 Test Item Value Reference Range Comments COLOR (BEAKER) (test ptop=428) Yellow CLARITY (BEAKER) (test tfmy=867) Clear SPECIFIC GRAVITY UA (BEAKER) (test qlut=364) 1.050 1.001-1.035 PH UA (BEAKER) (test jfjb=500) 5.5 5.0-8.0 PROTEIN UA (BEAKER) (test gamc=141) 50 mg/dL Negative GLUCOSE UA (BEAKER) (test igtt=801) >1000 mg/dL Negative KETONES UA (BEAKER) (test nkct=121) Negative Negative BILIRUBIN UA (BEAKER) (test ibuj=400) Negative Negative BLOOD UA (BEAKER) (test cdfn=296) Moderate Negative NITRITE UA (BEAKER) (test gxxa=731) Negative Negative LEUKOCYTE ESTERASE UA (BEAKER) (test kyde=724) Negative Negative UROBILINOGEN UA (BEAKER) (test wdei=738) 0.2 mg/dL 0.2-1.0 RBC UA (BEAKER) (test ktld=135) 16 /HPF WBC UA (BEAKER) (test nhup=007) 11 /HPF BACTERIA (BEAKER) (test rwyg=478) Rare MUCUS (BEAKER) (test pzas=7588) Rare SQUAMOUS EPITHELIAL (BEAKER) (test rwzz=269) 1 /HPF SOURCE(BEAKER) (test tnvi=8331) U/S, RENAL, [id number] 14:36:00Reason for exam:->acute renal failure , hydronephrosisShould [...] Right renal cyst.3. No hydronephrosis. Signed: Virginia Diazeport Verified Date/Time: 07/18/2017 14:36:40 Reading Location: [address] Ultrasound Reading Room Electronically signed by: VIRGINIA DIAZ M.D. on 02:36 PMT4, [id number] 14:31:00 Test Item Value Reference Range Comments FREE T4 (BEAKER) (test wqsi=084) 1.13 ng/dL 0.70-1.48 BLOOD GAS, [id number] 14:01:00 Test Item Value Reference Range Comments PH ARTERIAL (BEAKER) (test kroa=097) 7.42 7.35-7.45 PCO2 ARTERIAL (BEAKER) (test buxf=263) 42 mmHg 35-45 PO2 ARTERIAL (BEAKER) (test djpi=840) 66 mmHg 80-90 O2 SATURATION ARTERIAL (BEAKER) (test anua=062) 93.5 % 96.0-97.0 HCO3 ARTERIAL (BEAKER) (test xkgi=290) 27 mmol/L 21-29 BASE EXCESS ARTERIAL (BEAKER) (test jtkd=628) 2.1 mmol/L -2.0-3.0 PATIENT TEMPERATURE (BEAKER) (test dwju=4706) 36.9 C FIO2 (BEAKER) (test wsnu=1663) 40.0 % HEMOGLOBIN [id number] 13:57:00 Test Item Value Reference Range Comments HEMOGLOBIN A1C (BEAKER) (test siwb=654) 9.8 % 4.3-6.1 SODIUM, RANDOM [id number] 13:49:00 Test Item Value Reference Range Comments SODIUM URINE (BEAKER) (test jgay=597) 22 meq/L Reference Range: No NormalsTSH/FREE T4 IF [id number] 13:49:00 Test Item Value Reference Range Comments THYROID STIMULATING HORMONE (BEAKER) (test 0.27 uIU/mL 0.35-4.94 ngze=693) POCT-GLUCOSE [id number] 13:47:00 Test Item Value Reference Range Comments POC-GLUCOSE METER (BEAKER) 398 mg/dL 70-110 TESTED AT [facility] [address] [facility] (test dhin=8103) [facility] [address] CREATININE, RANDOM [id number] 13:43:00 Test Item Value Reference Range Comments CREATININE URINE (BEAKER) (test mpyw=668) 85.4 mg/dL Reference Range: No NormalsPROTEIN, RANDOM [id number] 13:43:00 Test Item Value Reference Range Comments PROTEIN, URINE (BEAKER) (test tiyy=8907) 75 mg/dL 0-14 B-TYPE NATRIURETIC FACTOR (BNP)2017-07-18 13:17:00 Test Item Value Reference Range Comments B-TYPE NATRIURETIC PEPTIDE (BEAKER) (test 1847 pg/mL 0-100 aiiy=859) BASIC METABOLIC [id number] 13:13:00 Test Item Value Reference Range Comments SODIUM (BEAKER) (test 138 meq/L 136-145 qvqp=767) POTASSIUM (BEAKER) (test 4.8 meq/L 3.5-5.1 pdrq=393) CHLORIDE (BEAKER) (test 101 meq/L 98-107 ehcy=057) CO2 (BEAKER) (test 26 meq/L 22-29 vyfl=730) BLOOD UREA NITROGEN 21 mg/dL 7-21 (BEAKER) (test svgd=653) CREATININE (BEAKER) (test 1.62 mg/dL 0.57-1.25 ienh=103) GLUCOSE RANDOM (BEAKER) 527 mg/dL 70-105 (test ilmw=586) CALCIUM (BEAKER) (test 8.9 mg/dL 8.4-10.2 cmnb=459) EGFR (BEAKER) (test 38 mL/min/1.73 sq m ESTIMATED GFR IS NOT tyfk=5587) ACCURATE CREATININE CLEARANCE IN PREDICTING GLOMERULAR FILTRATION RATE. ESTIMATED GFR IS NOT APPLICABLE FOR DIALYSIS PATIENTS. If last glucose was less than 500, may do bedside glucose instead of serum glucose.[id number] 13:12:00 Test Item Value Reference Range Comments MAGNESIUM (STEVAN) (test nspj=010) 1.9 mg/dL 1.6-2.6 If last glucose was less than 500, may do bedside glucose instead of serum glucose.[id number] 13:12:00 Test Item Value Reference Range Comments LIPASE (STEVAN) (test lkfk=676) 106 U/L 8-78 If last glucose was less than 500, may do bedside glucose instead of serum glucose.[id number] 13:11:00 Test Item Value Reference Range Comments PHOSPHORUS (DAMASOAKER) (test azhn=302) 3.3 mg/dL 2.3-4.7 If last glucose was less than 500, may do bedside glucose instead of serum glucose.POCT-GLUCOSE [id number] 12:49:00 Test Item Value Reference Range Comments POC-GLUCOSE METER (STEVAN) 498 mg/dL 70-110 Notified PAULA BERGER/TESTED AT [facility] (test fqbq=9839) [address] [facility] [address] LACTIC ACID, VENOUS, WHOLE [id number] 12:11:00 Test Item Value Reference Range Comments LACTATE BLOOD VENOUS (2) (STEVAN) (test 3.8 mmol/L 0.5-2.2 nzxk=4550) Effective 08/06/2015: Units/Reference Range ChangeNew: 0.5-2.2 mmol/L Previous: 5 -20 mg/[id number] 12:10:00 Test Item Value Reference Range Comments PROCALCITONIN (DAMASOAKER) (test tlip=1898) 3.80 ng/mL <0.05 SEPSIS RISK (ng/mL)Low: 0.05-0.50Intermediate: 0.51-2.00High: & gt;=2.01CBC W/PLT COUNT & AUTO [id number] 12:10:00 Test Item Value Reference Range Comments WHITE BLOOD CELL COUNT (DAMASOAKER) (test qgid=919) 11.2 K/ L 3.5-10.5 RED BLOOD CELL COUNT (BEAKER) (test nfmx=319) 3.98 M/ L 3.93-5.22 HEMOGLOBIN (BEAKER) (test uwvn=172) 12.0 GM/DL 11.2-15.7 HEMATOCRIT (BEAKER) (test osma=676) 38.5 % 34.1-44.9 MEAN CORPUSCULAR VOLUME (BEAKER) (test djlb=886) 96.7 fL 79.4-94.8 MEAN CORPUSCULAR HEMOGLOBIN (BEAKER) (test 30.2 pg 25.6-32.2 znzg=819) MEAN CORPUSCULAR HEMOGLOBIN CONC (BEAKER) (test 31.2 GM/DL 32.2-35.5 lqvr=996) RED CELL DISTRIBUTION WIDTH (BEAKER) (test 13.1 % 11.7-14.4 qchd=909) PLATELET COUNT (BEAKER) (test btdv=173) 222 K/CU MM 150-450 MEAN PLATELET VOLUME (BEAKER) (test xbzr=084) 10.2 fL 9.4-12.3 NUCLEATED RED BLOOD CELLS (BEAKER) (test 0 /100 WBC 0-0 clbv=070) NEUTROPHILS RELATIVE PERCENT (BEAKER) (test 96 % iefn=698) LYMPHOCYTES RELATIVE PERCENT (BEAKER) (test 2 % ffhd=834) MONOCYTES RELATIVE PERCENT (BEAKER) (test 2 % rbbj=482) EOSINOPHILS RELATIVE PERCENT (BEAKER) (test 0 % tmht=175) BASOPHILS RELATIVE PERCENT (BEAKER) (test 0 % fbho=624) NEUTROPHILS ABSOLUTE COUNT (BEAKER) (test 10.72 K/ L 1.56-6.13 ffvb=143) LYMPHOCYTES ABSOLUTE COUNT (BEAKER) (test 0.24 K/ L 1.18-3.74 uxdj=052) MONOCYTES ABSOLUTE COUNT (BEAKER) (test 0.22 K/ L 0.24-0.36 agon=966) EOSINOPHILS ABSOLUTE COUNT (BEAKER) (test 0.00 K/ L 0.04-0.36 jorb=248) BASOPHILS ABSOLUTE COUNT (BEAKER) (test 0.01 K/ L 0.01-0.08 igqg=682) IMMATURE GRANULOCYTES-RELATIVE PERCENT (BEAKER) 0 % 0-1 (test cors=3591) BASIC METABOLIC [id number] 11:35:00 Test Item Value Reference Range Comments SODIUM (BEAKER) (test 136 meq/L 136-145 uzbt=886) POTASSIUM (BEAKER) (test 4.8 meq/L 3.5-5.1 qdfu=802) CHLORIDE (BEAKER) (test 99 meq/L 98-107 koay=885) CO2 (BEAKER) (test 25 meq/L 22-29 rvlx=379) BLOOD UREA NITROGEN 19 mg/dL 7-21 (BEAKER) (test enoc=069) CREATININE (BEAKER) (test 1.61 mg/dL 0.57-1.25 eudg=999) GLUCOSE RANDOM (BEAKER) 568 mg/dL 70-105 (test wekp=792) CALCIUM (BEAKER) (test 8.9 mg/dL 8.4-10.2 simb=367) EGFR (BEAKER) (test 38 mL/min/1.73 sq m ESTIMATED GFR IS NOT uees=0269) ACCURATE CREATININE CLEARANCE IN PREDICTING GLOMERULAR FILTRATION RATE. ESTIMATED GFR IS NOT APPLICABLE FOR DIALYSIS PATIENTS. BLOOD GAS, [id number] 10:57:00 Test Item Value Reference Range Comments PH ARTERIAL (BEAKER) (test ilwb=171) 7.36 7.35-7.45 PCO2 ARTERIAL (BEAKER) (test baty=010) 47 mmHg 35-45 PO2 ARTERIAL (BEAKER) (test qvcd=099) 78 mmHg 80-90 O2 SATURATION ARTERIAL (BEAKER) (test guhl=719) 95.0 % 96.0-97.0 HCO3 ARTERIAL (BEAKER) (test zrcf=612) 26 mmol/L 21-29 BASE EXCESS ARTERIAL (BEAKER) (test pnwh=158) 0.4 mmol/L -2.0-3.0 PATIENT TEMPERATURE (BEAKER) (test ttoj=4833) 37.0 C FIO2 (BEAKER) (test urgv=2598) 100.0 % RAD, CHEST, 1 VIEW, NON [id number] 10:38:00Reason for exam:->IABP Should this be performed [...] MDReport Verified Date/Time: 07/18/2017 10:38:31 Reading Location: [facility] Radiology Reading Room CBC W/PLT COUNT & AUTO [id number] 10: 01:00 Test Item Value Reference Range Comments WHITE BLOOD CELL COUNT (BEAKER) (test edrs=651) 12.8 K/ L 3.5-10.5 RED BLOOD CELL COUNT (BEAKER) (test tyra=848) 3.95 M/ L 3.93-5.22 HEMOGLOBIN (BEAKER) (test jblz=821) 11.9 GM/DL 11.2-15.7 HEMATOCRIT (BEAKER) (test qfjj=738) 38.3 % 34.1-44.9 MEAN CORPUSCULAR VOLUME (BEAKER) (test wldh=670) 97.0 fL 79.4-94.8 MEAN CORPUSCULAR HEMOGLOBIN (BEAKER) (test 30.1 pg 25.6-32.2 bjol=562) MEAN CORPUSCULAR HEMOGLOBIN CONC (BEAKER) (test 31.1 GM/DL 32.2-35.5 qtsj=233) RED CELL DISTRIBUTION WIDTH (BEAKER) (test 13.1 % 11.7-14.4 gaan=023) PLATELET COUNT (BEAKER) (test sfsx=168) 231 K/CU MM 150-450 MEAN PLATELET VOLUME (BEAKER) (test osbi=757) 10.4 fL 9.4-12.3 NUCLEATED RED BLOOD CELLS (BEAKER) (test 0 /100 WBC 0-0 trul=551) NEUTROPHILS RELATIVE PERCENT (BEAKER) (test 91 % thok=746) LYMPHOCYTES RELATIVE PERCENT (BEAKER) (test 4 % zfrt=290) MONOCYTES RELATIVE PERCENT (BEAKER) (test 4 % dndw=690) EOSINOPHILS RELATIVE PERCENT (BEAKER) (test 0 % fgop=428) BASOPHILS RELATIVE PERCENT (BEAKER) (test 0 % rllc=421) NEUTROPHILS ABSOLUTE COUNT (BEAKER) (test 11.66 K/ L 1.56-6.13 txbt=207) LYMPHOCYTES ABSOLUTE COUNT (BEAKER) (test 0.53 K/ L 1.18-3.74 tqfs=565) MONOCYTES ABSOLUTE COUNT (BEAKER) (test 0.49 K/ L 0.24-0.36 thup=259) EOSINOPHILS ABSOLUTE COUNT (BEAKER) (test 0.01 K/ L 0.04-0.36 oeqo=089) BASOPHILS ABSOLUTE COUNT (BEAKER) (test 0.03 K/ L 0.01-0.08 utbz=807) IMMATURE GRANULOCYTES-RELATIVE PERCENT (BEAKER) 0 % 0-1 (test qokg=2191) COMPREHENSIVE METABOLIC [id number] 09:38:00 Test Item Value Reference Range Comments TOTAL PROTEIN (BEAKER) 6.7 gm/dL 6.0-8.3 Specimen slightly (test wkwu=801) hemolyzed ALBUMIN (BEAKER) (test 3.5 g/dL 3.5-5.0 Specimen slightly gzij=3342) hemolyzed ALKALINE PHOSPHATASE 70 U/L 40-150 (BEAKER) (test nxwk=105) BILIRUBIN TOTAL (BEAKER) 0.6 mg/dL 0.2-1.2 Specimen slightly (test qewf=956) hemolyzed SODIUM (BEAKER) (test 134 meq/L 136-145 uuis=538) POTASSIUM (BEAKER) (test 4.7 meq/L 3.5-5.1 Specimen slightly egpx=539) hemolyzed CHLORIDE (BEAKER) (test 98 meq/L 98-107 fjom=249) CO2 (BEAKER) (test 25 meq/L 22-29 yadw=008) BLOOD UREA NITROGEN 19 mg/dL 7-21 (BEAKER) (test dvve=329) CREATININE (BEAKER) (test 1.57 mg/dL 0.57-1.25 Specimen slightly dmek=982) hemolyzed GLUCOSE RANDOM (BEAKER) 652 mg/dL 70-105 (test uocx=419) CALCIUM (BEAKER) (test 8.7 mg/dL 8.4-10.2 oqoa=862) AST (SGOT) (BEAKER) (test 343 U/L 5-34 Specimen slightly ncsc=681) hemolyzed ALT (SGPT) (BEAKER) (test 89 U/L 6-55 Specimen slightly crtt=817) hemolyzed EGFR (BEAKER) (test 39 mL/min/1.73 sq m ESTIMATED GFR IS NOT xbzn=5694) ACCURATE CREATININE CLEARANCE IN PREDICTING GLOMERULAR FILTRATION RATE. ESTIMATED GFR IS NOT APPLICABLE FOR DIALYSIS PATIENTS. [id number] 09:09:00 Test Item Value Reference Range Comments ACTIVATED CLOTTING TIME 252 sec TESTED AT [facility] [address] [facility] (BEAKER) (test jyxi=303) [place] [id number] PROTHROMBIN [id number] 09:01:00 Test Item Value Reference Range Comments PROTIME (BEAKER) (test awsm=408) 18.3 seconds 11.7-14.7 INR (BEAKER) (test xwwc=736) 1.5 <=5.9 RECOMMENDED COUMADIN/WARFARIN INR THERAPY RANGESSTANDARD DOSE: 2.0 - 3.0 Includes: PROPHYLAXIS forvenous thrombosis, systemic embolization; TREATMENT for venous thrombosis and/or pulmonary embolus.HIGH RISK: Target INR is 2.5-3.5 for patients with mechanical heart valves.[id number] 08:09:00 Test Item Value Reference Range Comments ACTIVATED CLOTTING TIME 213 sec TESTED AT [place] [id number] [facility] (BEAKER) (test nvqc=780) [place] [address] [id number] 08:09:00 Test Item Value Reference Range Comments ACTIVATED CLOTTING TIME 263 sec TESTED AT [address] (BEAKER) (test xnth=201) [place] [id number] BLOOD GAS, [id number] 07:50:00 Test Item Value Reference Range Comments PH ARTERIAL (BEAKER) (test kejx=702) 7.20 7.35-7.45 PCO2 ARTERIAL (BEAKER) (test rnoq=362) 65 mmHg 35-45 PO2 ARTERIAL (BEAKER) (test upoc=940) 133 mmHg 80-90 O2 SATURATION ARTERIAL (BEAKER) (test flae=376) 98.1 % 96.0-97.0 HCO3 ARTERIAL (BEAKER) (test ozuy=717) 25 mmol/L 21-29 BASE EXCESS ARTERIAL (BEAKER) (test whzn=525) -4.3 mmol/L -2.0-3.0 PATIENT TEMPERATURE (BEAKER) (test zuta=9596) 36.0 C FIO2 (BEAKER) (test xara=1555) 100.0 % POCT-GLUCOSE [id number] 12:27:00 Test Item Value Reference Range Comments POC-GLUCOSE METER (BEAKER) 156 mg/dL 70-110 TESTED AT [address] (test pzfg=9556) [place] [id number] BASIC METABOLIC [id number] 05:45:00 Test Item Value Reference Range Comments SODIUM (BEAKER) (test 141 meq/L 136-145 tdya=728) POTASSIUM (BEAKER) (test 4.1 meq/L 3.5-5.1 ijcv=842) CHLORIDE (BEAKER) (test 106 meq/L 98-107 cwlv=243) CO2 (BEAKER) (test 26 meq/L 22-29 uows=378) BLOOD UREA NITROGEN 11 mg/dL 7-21 (BEAKER) (test wpds=748) CREATININE (BEAKER) (test 0.83 mg/dL 0.57-1.25 pvxn=519) GLUCOSE RANDOM (BEAKER) 139 mg/dL 70-105 (test rzob=018) CALCIUM (BEAKER) (test 8.5 mg/dL 8.4-10.2 trcj=042) EGFR (BEAKER) (test 83 mL/min/1.73 sq m ESTIMATED GFR IS NOT fuuf=3900) ACCURATE CREATININE CLEARANCE IN PREDICTING GLOMERULAR FILTRATION RATE. ESTIMATED GFR IS NOT APPLICABLE FOR DIALYSIS PATIENTS. POCT-GLUCOSE [id number] 21:10:00 Test Item Value Reference Range Comments POC-GLUCOSE METER (BEAKER) 103 mg/dL 70-110 TESTED AT [address] (test dgeb=6489) [place] [address] POCT-GLUCOSE [id number] 17:51:00 Test Item Value Reference Range Comments POC-GLUCOSE METER (BEAKER) 138 mg/dL 70-110 TESTED AT [address] (test bedf=2690) [place] [address] POCT-GLUCOSE [id number] 12:45:00 Test Item Value Reference Range Comments POC-GLUCOSE METER (BEAKER) 294 mg/dL 70-110 TESTED AT [address] (test jcgt=3080) [place] [address] CBC WITH PLATELET COUNT + MANUAL [id number] 07:04:00 Test Item Value Reference Range Comments WHITE BLOOD CELL COUNT (BEAKER) (test ecwj=996) 10.7 K/ L 4.0-10.0 RED BLOOD CELL COUNT (BEAKER) (test ekrg=818) 3.91 M/ L 4.00-5.00 HEMOGLOBIN (BEAKER) (test elrh=494) 12.9 GM/DL 12.0-15.0 HEMATOCRIT (BEAKER) (test gnjz=864) 39.0 % 36.0-45.0 MEAN CORPUSCULAR VOLUME (BEAKER) (test cbhy=758) 99.6 fL 82.0-99.0 MEAN CORPUSCULAR HEMOGLOBIN (BEAKER) (test 32.9 pg 27.0-33.0 dimj=340) MEAN CORPUSCULAR HEMOGLOBIN CONC (BEAKER) (test 33.0 GM/DL 32.0-36.0 vzuv=226) RED CELL DISTRIBUTION WIDTH (BEAKER) (test 12.8 % 10.3-14.2 eqvt=372) PLATELET COUNT (BEAKER) (test osov=546) 251 K/CU MM 150-430 MEAN PLATELET VOLUME (BEAKER) (test fusf=135) 8.1 fL 6.5-10.5 NUCLEATED RED BLOOD CELLS (BEAKER) (test 0 /100 WBC 0-0 xhui=889) NEUTROPHILS RELATIVE PERCENT (BEAKER) (test 80 % jwcg=801) LYMPHOCYTES RELATIVE PERCENT (BEAKER) (test 14 % omqs=545) MONOCYTES RELATIVE PERCENT (BEAKER) (test 6 % jemw=345) EOSINOPHILS RELATIVE PERCENT (BEAKER) (test 0 % mube=251) BASOPHILS RELATIVE PERCENT (BEAKER) (test 0 % fsil=185) NEUTROPHILS ABSOLUTE COUNT (BEAKER) (test 8.55 K/ L 1.80-8.00 stgt=641) LYMPHOCYTES ABSOLUTE COUNT (BEAKER) (test 1.46 K/ L 1.48-4.50 xrnk=890) MONOCYTES ABSOLUTE COUNT (BEAKER) (test 0.60 K/ L 0.00-1.30 avhf=365) EOSINOPHILS ABSOLUTE COUNT (BEAKER) (test 0.05 K/ L 0.00-0.50 nnfs=665) BASOPHILS ABSOLUTE COUNT (BEAKER) (test 0.02 K/ L 0.00-0.20 kcvm=805) 0.00(MANUAL DIFFERENTIAL)2016-06-14 07:04:00 Test Item Value Reference Range Comments TOTAL COUNTED (BEAKER) (test nafe=0635) PLT MORPHOLOGY (BEAKER) (test nxve=095) Normal RBC MORPHOLOGY (BEAKER) (test uyco=121) Normal ATYPICAL LYMPHS(BEAKER) (test jmfy=3622) Present BASIC METABOLIC [id number] 05:05:00 Test Item Value Reference Range Comments SODIUM (BEAKER) (test 140 meq/L 136-145 gqcg=479) POTASSIUM (BEAKER) (test 3.8 meq/L 3.5-5.1 qeow=846) CHLORIDE (BEAKER) (test 107 meq/L 98-107 luwe=163) CO2 (BEAKER) (test 26 meq/L 22-29 nijn=362) BLOOD UREA NITROGEN 13 mg/dL 7-21 (BEAKER) (test lyee=026) CREATININE (BEAKER) (test 0.80 mg/dL 0.57-1.25 mlrx=070) GLUCOSE RANDOM (BEAKER) 177 mg/dL 70-105 (test tdre=054) CALCIUM (BEAKER) (test 8.3 mg/dL 8.4-10.2 sjyj=245) EGFR (BEAKER) (test 86 mL/min/1.73 sq m ESTIMATED GFR IS NOT hrnp=1223) ACCURATE CREATININE CLEARANCE IN PREDICTING GLOMERULAR FILTRATION RATE. ESTIMATED GFR IS NOT APPLICABLE FOR DIALYSIS PATIENTS. [id number] 04:48:00 Test Item Value Reference Range Comments PROTIME (BEAKER) (test djdj=364) 13.0 seconds 11.7-14.7 INR (BEAKER) (test kwmc=287) 1.0 <=5.9 PARTIAL THROMBOPLASTIN TIME (BEAKER) (test 31.8 seconds 22.5-36.0 azqf=069) RECOMMENDED COUMADIN/WARFARIN INR THERAPY RANGESSTANDARD DOSE: 2.0 - 3.0 Includes: PROPHYLAXIS forvenous thrombosis, systemic embolization; TREATMENT for venous thrombosis and/or pulmonary embolus.HIGH RISK: Target INR is 2.5-3.5 for patients with mechanical heart valves.POCT-GLUCOSE [id number] 22:11:00 Test Item Value Reference Range Comments POC-GLUCOSE METER (BEAKER) 200 mg/dL 70-110 TESTED AT [facility] [address] [facility] (test pmvg=1854) [facility] [address] POCT-GLUCOSE [id number] 17:13:00 Test Item Value Reference Range Comments POC-GLUCOSE METER (BEAKER) 225 mg/dL 70-110 [facility] AT [facility] [address] [facility] (test musr=8118) [facility] [address] POCT-GLUCOSE [id number] 12:22:00 Test Item Value Reference Range Comments POC-GLUCOSE METER (BEAKER) 309 mg/dL 70-110 Notified PAULA BERGER/TESTED AT [facility] (test kjbk=4503) [address] [id number] URINALYSIS W/ [id number] 12:09:00 Test Item Value Reference Range Comments COLOR (BEAKER) (test ekgd=723) Yellow CLARITY (BEAKER) (test sxzd=840) Clear SPECIFIC GRAVITY UA (BEAKER) (test dnhz=546) 1.035 1.001-1.035 PH UA (BEAKER) (test vnbz=469) 5.0 5.0-8.0 PROTEIN UA (BEAKER) (test yxxd=311) Negative Negative GLUCOSE UA (BEAKER) (test dcqt=957) 150 mg/dL Negative KETONES UA (BEAKER) (test lhqt=654) Negative Negative BILIRUBIN UA (BEAKER) (test apja=184) Negative Negative BLOOD UA (BEAKER) (test mczr=494) Small Negative NITRITE UA (BEAKER) (test qocz=346) Negative Negative LEUKOCYTE ESTERASE UA (BEAKER) (test brux=578) Negative Negative UROBILINOGEN UA (BEAKER) (test jgug=899) 0.2 mg/dL 0.2-1.0 RBC UA (BEAKER) (test qubu=728) 6 /HPF WBC UA (BEAKER) (test rqie=714) 1 /HPF MUCUS (BEAKER) (test fjyy=2592) Rare SQUAMOUS EPITHELIAL (BEAKER) (test fant=590) 6 /HPF HYALINE CASTS (BEAKER) (test mawt=558) 2 /LPF SOURCE(BEAKER) (test kxft=7287) POCT-GLUCOSE [id number] 07:58:00 Test Item Value Reference Range Comments POC-GLUCOSE METER (BEAKER) 236 mg/dL 70-110 TESTED AT [place] [address] [facility] (test usrr=1198) [facility] [address] BASIC METABOLIC [id number] 04:10:00 Test Item Value Reference Range Comments SODIUM (BEAKER) (test 138 meq/L 136-145 rgkr=653) POTASSIUM (BEAKER) (test 4.2 meq/L 3.5-5.1 icwe=631) CHLORIDE (BEAKER) (test 107 meq/L 98-107 loln=814) CO2 (BEAKER) (test 22 meq/L 22-29 pohg=708) BLOOD UREA NITROGEN 20 mg/dL 7-21 (BEAKER) (test vwss=906) CREATININE (BEAKER) (test 1.00 mg/dL 0.57-1.25 jdrs=929) GLUCOSE RANDOM (BEAKER) 246 mg/dL 70-105 (test feiw=653) CALCIUM (BEAKER) (test 8.8 mg/dL 8.4-10.2 eqld=167) EGFR (BEAKER) (test 67 mL/min/1.73 sq m ESTIMATED GFR IS NOT okwq=8908) ACCURATE CREATININE CLEARANCE IN PREDICTING GLOMERULAR FILTRATION RATE. ESTIMATED GFR IS NOT APPLICABLE FOR DIALYSIS PATIENTS. [id number] 04:03:00 Test Item Value Reference Range Comments PROTIME (BEAKER) (test kdtu=598) 12.8 seconds 11.7-14.7 INR (BEAKER) (test btmr=519) 1.0 <=5.9 PARTIAL THROMBOPLASTIN TIME (BEAKER) (test 29.6 seconds 22.5-36.0 wekq=293) RECOMMENDED COUMADIN/WARFARIN INR THERAPY RANGESSTANDARD DOSE: 2.0 - 3.0 Includes: PROPHYLAXIS forvenous thrombosis, systemic embolization; TREATMENT for venous thrombosis and/or pulmonary embolus.HIGH RISK: Target INR is 2.5-3.5 for patients with mechanical heart valves.CBC WITH PLATELET COUNT + MANUAL [id number] 03:58:00 Test Item Value Reference Range Comments WHITE BLOOD CELL COUNT (BEAKER) (test rvys=541) 14.3 K/ L 4.0-10.0 RED BLOOD CELL COUNT (BEAKER) (test poot=407) 4.03 M/ L 4.00-5.00 HEMOGLOBIN (BEAKER) (test toxj=345) 13.1 GM/DL 12.0-15.0 HEMATOCRIT (BEAKER) (test issj=408) 39.7 % 36.0-45.0 MEAN CORPUSCULAR VOLUME (BEAKER) (test pasc=113) 98.5 fL 82.0-99.0 MEAN CORPUSCULAR HEMOGLOBIN (BEAKER) (test 32.6 pg 27.0-33.0 sucz=013) MEAN CORPUSCULAR HEMOGLOBIN CONC (BEAKER) (test 33.1 GM/DL 32.0-36.0 izmi=218) RED CELL DISTRIBUTION WIDTH (BEAKER) (test 12.9 % 10.3-14.2 ksuh=785) PLATELET COUNT (BEAKER) (test spzw=159) 271 K/CU MM 150-430 MEAN PLATELET VOLUME (BEAKER) (test nzro=073) 7.7 fL 6.5-10.5 NUCLEATED RED BLOOD CELLS (BEAKER) (test 0 /100 WBC 0-0 febx=502) NEUTROPHILS RELATIVE PERCENT (BEAKER) (test 87 % ssap=951) LYMPHOCYTES RELATIVE PERCENT (BEAKER) (test 7 % nrys=447) MONOCYTES RELATIVE PERCENT (BEAKER) (test 6 % obip=579) EOSINOPHILS RELATIVE PERCENT (BEAKER) (test 0 % ienl=511) BASOPHILS RELATIVE PERCENT (BEAKER) (test 0 % vrdt=969) NEUTROPHILS ABSOLUTE COUNT (BEAKER) (test 12.40 K/ L 1.80-8.00 bwnm=796) LYMPHOCYTES ABSOLUTE COUNT (BEAKER) (test 1.06 K/ L 1.48-4.50 rijx=407) MONOCYTES ABSOLUTE COUNT (BEAKER) (test 0.81 K/ L 0.00-1.30 smtw=131) EOSINOPHILS ABSOLUTE COUNT (BEAKER) (test 0.01 K/ L 0.00-0.50 fxxz=783) BASOPHILS ABSOLUTE COUNT (BEAKER) (test 0.03 K/ L 0.00-0.20 ngzw=809) 0.000.530.000.000.520.000.000.000.00POCT-GLUCOSE [id number] 22:17:00 Test Item Value Reference Range Comments POC-GLUCOSE METER (BEAKER) 260 mg/dL 70-110 TESTED AT [address] (test icaw=3055) [facility] [address] POCT-GLUCOSE [id number] 12:11:00 Test Item Value Reference Range Comments POC-GLUCOSE METER (BEAKER) 278 mg/dL 70-110 TESTED AT [address] (test pthn=6258) [facility] [address] HEMOGLOBIN [id number] 10:46:00 Test Item Value Reference Range Comments HEMOGLOBIN A1C (BEAKER) (test yozi=426) 9.7 % 4.3-6.1 DC\S\Delta Check\S\NONEPOCT-GLUCOSE [id number] 07:15:00 Test Item Value Reference Range Comments POC-GLUCOSE METER (BEAKER) 283 mg/dL 70-110 TESTED AT [address] (test vqki=8174) [facility] [address] BASIC METABOLIC [id number] 04:43:00 Test Item Value Reference Range Comments SODIUM (BEAKER) (test 136 meq/L 136-145 zpkx=155) POTASSIUM (BEAKER) (test 4.0 meq/L 3.5-5.1 cugx=825) CHLORIDE (BEAKER) (test 102 meq/L 98-107 xgbb=382) CO2 (BEAKER) (test 27 meq/L 22-29 mvcw=744) BLOOD UREA NITROGEN 18 mg/dL 7-21 (BEAKER) (test srzg=847) CREATININE (BEAKER) (test 0.95 mg/dL 0.57-1.25 lvis=499) GLUCOSE RANDOM (BEAKER) 256 mg/dL 70-105 (test mvvv=174) CALCIUM (BEAKER) (test 9.0 mg/dL 8.4-10.2 lczk=649) EGFR (BEAKER) (test 71 mL/min/1.73 sq m ESTIMATED GFR IS NOT fhgi=2547) ACCURATE CREATININE CLEARANCE IN PREDICTING GLOMERULAR FILTRATION RATE. ESTIMATED GFR IS NOT APPLICABLE FOR DIALYSIS PATIENTS. CBC WITH PLATELET COUNT + MANUAL [id number] 04:28:00 Test Item Value Reference Range Comments WHITE BLOOD CELL COUNT (BEAKER) (test ahmf=776) 11.6 K/ L 4.0-10.0 RED BLOOD CELL COUNT (BEAKER) (test nzbt=611) 4.15 M/ L 4.00-5.00 HEMOGLOBIN (BEAKER) (test jnry=226) 13.3 GM/DL 12.0-15.0 HEMATOCRIT (BEAKER) (test fcgo=627) 40.5 % 36.0-45.0 MEAN CORPUSCULAR VOLUME (BEAKER) (test bdjb=413) 97.6 fL 82.0-99.0 MEAN CORPUSCULAR HEMOGLOBIN (BEAKER) (test 32.1 pg 27.0-33.0 flfd=735) MEAN CORPUSCULAR HEMOGLOBIN CONC (BEAKER) (test 32.9 GM/DL 32.0-36.0 zaks=853) RED CELL DISTRIBUTION WIDTH (BEAKER) (test 12.7 % 10.3-14.2 mpye=445) PLATELET COUNT (BEAKER) (test upsw=698) 263 K/CU MM 150-430 MEAN PLATELET VOLUME (BEAKER) (test swft=010) 8.2 fL 6.5-10.5 NUCLEATED RED BLOOD CELLS (BEAKER) (test 0 /100 WBC 0-0 vqgt=503) NEUTROPHILS RELATIVE PERCENT (BEAKER) (test 90 % zjan=914) LYMPHOCYTES RELATIVE PERCENT (BEAKER) (test 8 % osic=496) MONOCYTES RELATIVE PERCENT (BEAKER) (test 2 % bect=416) EOSINOPHILS RELATIVE PERCENT (BEAKER) (test 0 % cimr=954) BASOPHILS RELATIVE PERCENT (BEAKER) (test 0 % ccgm=358) NEUTROPHILS ABSOLUTE COUNT (BEAKER) (test 10.40 K/ L 1.80-8.00 wvag=306) LYMPHOCYTES ABSOLUTE COUNT (BEAKER) (test 0.95 K/ L 1.48-4.50 yftb=895) MONOCYTES ABSOLUTE COUNT (BEAKER) (test 0.20 K/ L 0.00-1.30 bvot=893) EOSINOPHILS ABSOLUTE COUNT (BEAKER) (test 0.02 K/ L 0.00-0.50 ienm=570) BASOPHILS ABSOLUTE COUNT (BEAKER) (test 0.02 K/ L 0.00-0.20 wxyw=542) 0.00PT/[id number] 04:25:00 Test Item Value Reference Range Comments PROTIME (BEAKER) (test soec=438) 13.7 seconds 11.7-14.7 INR (BEAKER) (test gndj=162) 1.1 <=5.9 PARTIAL THROMBOPLASTIN TIME (BEAKER) (test 32.8 seconds 22.5-36.0 blrh=759) RECOMMENDED COUMADIN/WARFARIN INR THERAPY RANGESSTANDARD DOSE: 2.0 - 3.0 Includes: PROPHYLAXIS forvenous thrombosis, systemic embolization; TREATMENT for venous thrombosis and/or pulmonary embolus.HIGH RISK: Target INR is 2.5-3.5 for patients with mechanical heart valves.POCT-GLUCOSE [id number] 02:47:00 Test Item Value Reference Range Comments POC-GLUCOSE METER (BEAKER) 278 mg/dL 70-110 TESTED AT [facility] [address] [facility] (test ciov=1406) [facility] [address] POCT-GLUCOSE [id number] 22:12:00 Test Item Value Reference Range Comments POC-GLUCOSE METER (BEAKER) 258 mg/dL 70-110 TESTED AT [address] (test fvzm=9129) [place] [id number] 15:44:00 Test Item Value Reference Range Comments MAGNESIUM (BEAKER) (test 2.1 mg/dL 1.6-2.6 Specimen slightly hemolyzed qfst=947) [id number] 15:44:00 Test Item Value Reference Range Comments PHOSPHORUS (BEAKER) (test 2.9 mg/dL 2.3-4.7 Specimen slightly hemolyzed fily=746) BASIC METABOLIC [id number] 15:44:00 Test Item Value Reference Range Comments SODIUM (BEAKER) (test 137 meq/L 136-145 spdv=736) POTASSIUM (BEAKER) (test 4.4 meq/L 3.5-5.1 Specimen slightly hixi=516) hemolyzed CHLORIDE (BEAKER) (test 99 meq/L 98-107 rlyk=938) CO2 (BEAKER) (test 27 meq/L 22-29 ehwi=661) BLOOD UREA NITROGEN 13 mg/dL 7-21 (BEAKER) (test ehze=071) CREATININE (BEAKER) (test 0.96 mg/dL 0.57-1.25 Specimen slightly rgps=556) hemolyzed GLUCOSE RANDOM (BEAKER) 250 mg/dL 70-105 (test rkwj=340) CALCIUM (BEAKER) (test 9.6 mg/dL 8.4-10.2 hqca=713) EGFR (BEAKER) (test 70 mL/min/1.73 sq m ESTIMATED GFR IS NOT dmxr=9010) ACCURATE CREATININE CLEARANCE IN PREDICTING GLOMERULAR FILTRATION RATE. ESTIMATED GFR IS NOT APPLICABLE FOR DIALYSIS PATIENTS. CBC WITH PLATELET COUNT + MANUAL [id number] 15:39:00 Test Item Value Reference Range Comments WHITE BLOOD CELL COUNT (BEAKER) (test lboh=997) 9.5 K/ L 4.0-10.0 RED BLOOD CELL COUNT (BEAKER) (test rabn=235) 4.18 M/ L 4.00-5.00 HEMOGLOBIN (BEAKER) (test vqah=280) 14.0 GM/DL 12.0-15.0 HEMATOCRIT (BEAKER) (test bzkr=211) 40.7 % 36.0-45.0 MEAN CORPUSCULAR VOLUME (BEAKER) (test wjfn=910) 97.3 fL 82.0-99.0 MEAN CORPUSCULAR HEMOGLOBIN (BEAKER) (test 33.4 pg 27.0-33.0 totb=241) MEAN CORPUSCULAR HEMOGLOBIN CONC (BEAKER) (test 34.3 GM/DL 32.0-36.0 btwr=730) RED CELL DISTRIBUTION WIDTH (BEAKER) (test 12.6 % 10.3-14.2 gfzf=218) PLATELET COUNT (BEAKER) (test lvqn=230) 253 K/CU MM 150-430 MEAN PLATELET VOLUME (BEAKER) (test wkig=101) 8.1 fL 6.5-10.5 NUCLEATED RED BLOOD CELLS (BEAKER) (test 0 /100 WBC 0-0 jrfl=871) NEUTROPHILS RELATIVE PERCENT (BEAKER) (test 91 % pxhc=892) LYMPHOCYTES RELATIVE PERCENT (BEAKER) (test 8 % fvhb=473) MONOCYTES RELATIVE PERCENT (BEAKER) (test 1 % cpmz=790) EOSINOPHILS RELATIVE PERCENT (BEAKER) (test 0 % woqf=108) BASOPHILS RELATIVE PERCENT (BEAKER) (test 0 % guqw=323) NEUTROPHILS ABSOLUTE COUNT (BEAKER) (test 8.66 K/ L 1.80-8.00 qdkt=175) LYMPHOCYTES ABSOLUTE COUNT (BEAKER) (test 0.78 K/ L 1.48-4.50 kfjp=166) MONOCYTES ABSOLUTE COUNT (BEAKER) (test 0.07 K/ L 0.00-1.30 pyvy=802) EOSINOPHILS ABSOLUTE COUNT (BEAKER) (test 0.01 K/ L 0.00-0.50 bhcl=129) BASOPHILS ABSOLUTE COUNT (BEAKER) (test 0.01 K/ L 0.00-0.20 ovio=972) [id number] 15:39:00 Test Item Value Reference Range Comments PROTIME (BEAKER) (test xvyz=221) 12.7 seconds 11.7-14.7 INR (BEAKER) (test zttu=488) 1.0 <=5.9 PARTIAL THROMBOPLASTIN TIME (BEAKER) (test 32.8 seconds 22.5-36.0 okhp=058) RECOMMENDED COUMADIN/WARFARIN INR THERAPY RANGESSTANDARD DOSE: 2.0 - 3.0 Includes: PROPHYLAXIS forvenous thrombosis, systemic embolization; TREATMENT for venous thrombosis and/or pulmonary embolus.HIGH RISK: Target INR is 2.5-3.5 for patients with mechanical heart valves.
[2018-12-21] MEDS ORDERED: NITROGLYCERIN/D5W 50 MG/250 ML BTL IV ONE ×2 (12:20→19:54)
--- NOTE | 2018-12-21 12:48 | RAD REPORT ---
EXAM DESCRIPTION: RAD - Chest Single View - 12/21/2018 12:40 pm CLINICAL HISTORY: Chest pain, hypertension, tachycardia COMPARISON: August 2018 TECHNIQUE: AP portable chest image was obtained 1227 hours . FINDINGS: No peripheral mass or consolidation. Patient has chronic interstitial lung disease with in terstitial opacification increased over the comparison. Cardiomegaly is present not substantially dif ferent from comparison. Vasculature is mildly increased over comparison. Patient has a large hiatal h ernia. Trachea is midline. Descending thoracic aortic stent graft is in place similar to comparison. There is an external defibrillator in place as well. No pneumothorax present. No large pleural effusi on. The external defibrillator obscures the costophrenic angles. No acute bony abnormality seen. No a cute aortic findings suspected. IMPRESSION: Mild CHF/volume overload is suspected. The cardiomegaly is similar to comparison but the vasculature and lung markings are increased. No focal consolidation typical for bacterial pneumonia.
[2018-12-21 12:57] LABS: Absolute Lymphocytes (CBC) 0.3 K/uL (0.7-4.9); Basophils % 0.5 % (0-1.3); Hematocrit 27.4 % (36.0-45.0); Lymphocytes % 4.9 % (15.3-44.8); MPV 7.7 fL (7.6-11.3)
[2018-12-21 13:06] LABS: Protime INR 1.02
[2018-12-21 13:19] LABS: ALT/SGPT 19 U/L (12-78); AST/SGOT 18 U/L (15-37); Albumin 4.4 g/dL (3.4-5.0); Alkaline Phosphatase 60 U/L (45-117); BUN Blood Urea Nitrogen 23 mg/dL (7-18); Bicarbonate 29 mmol/L (21-32); Bilirubin Direct 0.2 mg/dL (0-0.2); Bilirubin Total 0.5 mg/dL (0.2-1.0); Glucose Level 141 mg/dL (74-106); Magnesium 2.2 mg/dL (1.8-2.4); NT PRO-BNP 14640 pg/mL (<125); Potassium 3.9 mmol/L (3.5-5.1); Protein, Total 8.7 g/dL (6.4-8.2); Sodium Level 139 mmol/L (136-145); Troponin (Emerg Dept Use Only) < 0.02 ng/mL (0.0-0.045)
--- NOTE | 2018-12-21 13:39 | ER ---
Nurse's Notes [facility] Name: Christa Ayala Age: 73 yrs Sex: Female : 1945 Arrival Date: 12/21/2018 Time: 11:52 Bed 4 Private MD: Diagnosis: Acute and chronic respiratory failure;Acute combined systolic (congestive) and diastolic (congestive) heart failure;Chronic kidney disease (CKD) Presentation: 12/21 11:52 Presenting complaint: Patient states: pt has a Milrinone infusion going to right upper jl7 arm pic. 11:53 Presenting complaint: EMS states: BP 194/131, HR 110, has life vest on, home health jl7 called due to HR and BP, c/o mild dizziness upon standing. Transition of care: patient was not received from another setting of care. Onset of symptoms was December 21, 2018. Risk Assessment: Do you want to hurt yourself or someone else? Patient reports no desire to harm self or others. Initial Sepsis Screen: Does the patient meet any 2 criteria? No. Patient's initial sepsis screen is negative. Does the patient have a suspected source of infection? No. Patient's initial sepsis screen is negative. Care prior to arrival: None. 11:53 Method Of Arrival: EMS jl7 11:53 Acuity: SONYA 2 jl7 Triage Assessment: 11:52 General: Appears in no apparent distress. uncomfortable, Behavior is calm, cooperative, jl7 appropriate for age. Pain: Denies pain. EENT: No signs and/or symptoms were reported regarding the EENT system. Neuro: Level of Consciousness is awake, alert, obeys commands. Cardiovascular: Heart tones S1 S2 present Patient's skin is warm and dry. Respiratory: Airway is patent Respiratory effort is even, unlabored, Respiratory pattern is regular, symmetrical, Breath sounds are clear bilaterally. GI: No signs and/or symptoms were reported involving the gastrointestinal system. : No signs and/or symptoms were reported regarding the genitourinary system. Derm: Skin is pink, warm \T\ dry. Musculoskeletal: No signs and/or symptoms reported regarding the musculoskeletal system. Historical: - Allergies: 12:04 Codeine; jl7 12:04 Demerol; jl7 12:04 Iodine; jl7 - PMHx: 12:04 Atrial Fib; CHF; COPD; Diabetes - NIDDM; Emphysema; enlarged aorta; GERD; High jl7 Cholesterol; Hypertension; Myocardial infarction; Anemia; - Immunization history:: Adult Immunizations unknown. - Social history:: Smoking status: Patient/guardian denies using tobacco. - Ebola Screening: : No symptoms or risks identified at this time. Screenin:55 Abuse screen: Denies threats or abuse. Denies injuries from another. Nutritional sg screening: No deficits noted. Tuberculosis screening: No symptoms or risk factors identified. Never had TB. Fall Risk None identified. Assessment: 11:55 General: Appears in no apparent distress. well groomed, well developed, well nourished, sg Behavior is calm, cooperative, appropriate for age. Pain: Denies pain. Neuro: Level of Consciousness is awake, alert, obeys commands, Oriented to person, place, time, situation, Molder Wax Ball are equal bilaterally Moves all extremities. Full function Gait is steady, Speech is normal, Facial symmetry appears normal. Cardiovascular: Capillary refill is brisk in bilateral fingers Chest pain is denied. Respiratory: Airway is patent Respiratory effort is even, unlabored, Respiratory pattern is regular, symmetrical. Respiratory: Breath sounds are diminished in left posterior lower lobe and right posterior lower lobe Breath sounds with rales in left posterior upper lobe and right posterior upper lobe. Respiratory: Reports shortness of breath at rest. GI: Abdomen is round non-distended, Bowel sounds. : No signs and/or symptoms were reported regarding the genitourinary system. EENT: Nares are clear bilaterally Oral mucosa is moist. Throat is pink. Derm: Skin is intact, is healthy with good turgor, Skin is dry, Skin is normal, Skin temperature is warm. Musculoskeletal: Circulation, motion, and sensation intact. Range of motion: intact in all extremities, Swelling absent. 19:05 Reassessment: Patient appears in no apparent distress at this time. received patient rr5 awake conscious and coherent not in distress GCS 15/15 AOx4. hooked on BIPAP IPAP of 14 EPAP, RR 14, FIO2 30% with milrinone infusion going at right upper arm, with PIC line at right upper arm ongoing nitroglycerin drip at 55mcg/min ongoing, IV cannula G20 Left AC intact. admitted under dr. lewis. no complaints made. for ICU admission. 19:40 Reassessment: spoke to dr silverio he said he will come to ICU to take a look at her. rr5 informed for the BP 177/124 mmHg. Vital Signs: 11:52 BP 210 / 129; Pulse 102; Resp 23 S; Temp 98.9(O); Pulse Ox 100% on 4 lpm NC; Pain 0/10; jl7 12:40 BP 195 / 138; Pulse 95; Resp 23 S; Pulse Ox 100% on BiPAP; iw 13:06 BP 186 / 123; Pulse 92; iw 14:31 BP 181 / 126; Pulse 102; Resp 17; Pulse Ox 100% on R/A; sv 15:00 BP 179 / 120; Pulse 95; Resp 20; Pulse Ox 100% on BiPAP; sv 15:30 BP 183 / 121; Pulse 98; Resp 18; Pulse Ox 100% on BiPAP; sv 16:00 BP 184 / 119; Pulse 101; Resp 20; Pulse Ox 100% on BiPAP; sv 16:30 BP 173 / 121; Pulse 101; Resp 23; Pulse Ox 100% on BiPAP; sv 17:00 BP 168 / 123; Pulse 103; Resp 18; Pulse Ox 100% on BiPAP; sv 17:30 BP 179 / 126; Pulse 105; Pulse Ox 100% on BiPAP; sg 17:44 BP 172 / 112; Pulse 100; sg 18:00 BP 176 / 125; Pulse 103; Resp 18; Pulse Ox 100% on BiPAP; sg 18:30 BP 179 / 124; Pulse 103; Resp 18; Pulse Ox 100% on BiPAP; sg 19:00 BP 184 / 123; Pulse 109; Resp 33; Temp 98.4; Pulse Ox 100% on 30% BiPAP; rr5 19:40 BP 177 / 124; Pulse 106; Resp 30; Pulse Ox 100% on 30% BiPAP; rr5 ED Course: 11:52 Patient arrived in ED. jl7 11:52 Arm band placed on right wrist. jl7 12:01 Triage completed. jl7 12:08 Wily Bravo PA is PHCP. jr8 12:08 Molina Dill MD is Attending Physician. jr8 12:16 Calvin Gill RN is Primary Nurse. jl7 12:39 EKG done, by sonar technician. reviewed by Wily GIORDANO. at1 12:40 Inserted saline lock: 20 gauge in left antecubital area, using aseptic technique. Blood sv collected. Flushed left antecubital with 5 ml normal saline. 13:37 Cecille Lewis MD is Hospitalizing Provider. jr8 14:12 Kendrick Stevens MD is Hospitalizing Provider. jr8 17:28 BIPAP Sent. sv 17:28 XRAY Chest (1 view) Sent. sv 17:28 Basic Metabolic Panel Sent. sv 17:28 CBC with Diff Sent. sv 17:28 LFT's Sent. sv 17:28 Magnesium Sent. sv 17:29 NT PRO-BNP Sent. sv 17:29 PT-INR Sent. sv 17:29 Troponin (emerg Dept Use Only) Sent. sv 17:29 Lactate Sent. sv 17:29 Procalcitonin Sent. sv 17:29 Blood Culture Adult (2) Sent. sv 18:10 Hospitalizing Provider role handed off by Kendrick Stevens MD bd 18:10 Cecille Lewis MD is Hospitalizing Provider. bd 19:00 Patient has correct armband on for positive identification. Placed in gown. Bed in low rr5 position. Call light in reach. Side rails up X2. commercial collections driver on. Pulse ox on. NIBP on. 19:42 No provider procedures requiring assistance completed. Patient admitted, IV remains in rr5 place. intact, No redness/swelling at site. Administered Medications: 12:35 Drug: Nitro Drip - (Nitroglycerin 50 mg, D5W 250 ml) Route: IV; Rate: 5 mcg/min; Site: iw PICC; 12:54 Follow up: Rate change 15 mcg/min iw 14:33 Follow up: Rate change 25 mcg/min iw 14:51 Follow up: Response: No adverse reaction; Blood pressure is unchanged; Rate change 35 sg mcg/min 14:52 Follow up: Rate change 35 mcg/min iw 17:44 Follow up: BP 172 / 112; Pulse 100 bpm; Rate change 50 mcg/min sg 19:00 Follow up: Rate change 55 mcg/min; received on GTN at 55mcg/min rr5 19:45 Follow up: IV Status: Infusion continued upon admission rr5 15:45 Drug: Lasix 40 mg Route: IVP; Site: left antecubital; sg 17:30 Drug: Zofran 4 mg Route: IVP; Site: left antecubital; sv Intake: Outcome: 13:38 Decision to Hospitalize by Provider. jr8 19:43 Admitted to ICU accompanied by nurse, via stretcher, room ICU 2, with oxygen, on rr5 monitor, with chart, Report called to kylee 19:43 Condition: stable 19:43 Instructed on the need for admit. 20:03 Patient left the ED. ea Signatures: Yumiko Cordero Stephanie, RN Tyron Yoder RN Annette Centeno RN RN iw Roszak, Josh, PA PA jr8 Tasha Moralez, semiautomatic stitcher operator EKG Tat1 Calvin Gill RN RN jl7 Karissa Liu, RN Sathish Saeed ea, RN RN rr5
--- NOTE | 2018-12-21 13:41 | EDPHYS ---
Physician Documentation [facility] [place] Name: Christa Ayala Age: 73 yrs Sex: Female : 1945 Arrival Date: 12/21/2018 Time: 11:52 Bed 4 Private MD: ED Physician Molina Dill HPI: 12/21 12:42 This 73 yrs old Black Female presents to ER via EMS with complaints of High Blood jr8 Pressure. 12:42 The patient has elevated blood pressure and discovered this at home, home health nurse. jr8 Onset: The symptoms/episode began/occurred this morning. Modifying factors:. Associated signs and symptoms: Pertinent positives: dyspnea, nausea, vomiting. Severity of symptoms: At its worst the blood pressure was severe, just prior to arrival, in the emergency department the blood pressure is improved, mildly. The patient has experienced similar episodes in the past. Pt is on continuous milrinone infusion in end stage heart failure with home oxygen, home health nurse came to house this morning and measure BP with findings of BP greater than 200 over greater than 110. Family at bedside states patient has had a cough that she has been fighting but cannot seem to get anything up. Blood pressures leading up to today have been WNL for patient. Patient sees Dr. Levy at [facility] for her heart. . Historical: - Allergies: 12:04 Codeine; jl7 12:04 Demerol; jl7 12:04 Iodine; jl7 - PMHx: 12:04 Atrial Fib; CHF; COPD; Diabetes - NIDDM; Emphysema; enlarged aorta; GERD; High jl7 Cholesterol; Hypertension; Myocardial infarction; Anemia; - Immunization history:: Adult Immunizations unknown. - Social history:: Smoking status: Patient/guardian denies using tobacco. - Ebola Screening: : No symptoms or risks identified at this time. ROS: 12:42 Constitutional: Negative for fever, chills, and weight loss, Eyes: Negative for injury, jr8 pain, redness, and discharge, Neuro: Negative for headache, weakness, numbness, tingling, and seizure. 12:42 Constitutional: Negative for body aches, chills, fatigue, fever, malaise. 12:42 Eyes: Negative for acute changes. 12:42 ENT: Negative for injury or acute deformity. 12:42 Neck: Negative for injury or acute deformity, stiffness, swelling. 12:42 Cardiovascular: Positive for orthopnea. 12:42 Respiratory: Positive for cough, with no reported sputum, shortness of breath, at rest. 12:42 Abdomen/GI: Positive for nausea and vomiting, Negative for abdominal pain, diarrhea. 12:42 Back: Negative for injury or acute deformity, acute changes. Exam: 12:42 Eyes: Pupils equal round and reactive to light, extra-ocular motions intact. Lids and jr8 lashes normal. Conjunctiva and sclera are non-icteric and not injected. Cornea within normal limits. Periorbital areas with no swelling, redness, or edema. ENT: Nares patent. No nasal discharge, no septal abnormalities noted. Tympanic membranes are normal and external auditory canals are clear. Oropharynx with no redness, swelling, or masses, exudates, or evidence of obstruction, uvula midline. Mucous membranes moist. 12:42 Constitutional: The patient appears awake, non-diaphoretic, well groomed, restless, uncomfortable. 12:42 Head/face: Exam is negative for acute changes, obvious evidence of injury or deformity. 12:42 Neck: 12:42 Cardiovascular: Pulses: Pulses are 3+ in right radial artery and left radial artery. Heart sounds: murmur, systolic, S1, S2, Edema: is not appreciated, JVD: is noted bilaterally. 12:42 Respiratory: moderate respiratory distress is noted, Respirations: accessory muscle usage, that is moderate, nasal flaring, tachypnea, that is moderate, Breath sounds: rales, are located in both bases, decreased breath sounds, are heard in the left posterior upper lobe, right posterior upper lobe, left posterior lower lobe, right posterior middle lobe and right posterior lower lobe. 12:42 Abdomen/GI: Inspection: abdomen appears normal, Bowel sounds: normal, in all quadrants, Palpation: soft, in all quadrants, mild abdominal tenderness, in all quadrants. Vital Signs: 11:52 BP 210 / 129; Pulse 102; Resp 23 S; Temp 98.9(O); Pulse Ox 100% on 4 lpm NC; Pain 0/10; jl7 12:40 BP 195 / 138; Pulse 95; Resp 23 S; Pulse Ox 100% on BiPAP; iw 13:06 BP 186 / 123; Pulse 92; iw 14:31 BP 181 / 126; Pulse 102; Resp 17; Pulse Ox 100% on R/A; sv 15:00 BP 179 / 120; Pulse 95; Resp 20; Pulse Ox 100% on BiPAP; sv 15:30 BP 183 / 121; Pulse 98; Resp 18; Pulse Ox 100% on BiPAP; sv 16:00 BP 184 / 119; Pulse 101; Resp 20; Pulse Ox 100% on BiPAP; sv 16:30 BP 173 / 121; Pulse 101; Resp 23; Pulse Ox 100% on BiPAP; sv 17:00 BP 168 / 123; Pulse 103; Resp 18; Pulse Ox 100% on BiPAP; sv 17:30 BP 179 / 126; Pulse 105; Pulse Ox 100% on BiPAP; sg 17:44 BP 172 / 112; Pulse 100; sg 18:00 BP 176 / 125; Pulse 103; Resp 18; Pulse Ox 100% on BiPAP; sg 18:30 BP 179 / 124; Pulse 103; Resp 18; Pulse Ox 100% on BiPAP; sg 19:00 BP 184 / 123; Pulse 109; Resp 33; Temp 98.4; Pulse Ox 100% on 30% BiPAP; rr5 19:40 BP 177 / 124; Pulse 106; Resp 30; Pulse Ox 100% on 30% BiPAP; rr5 MDM: 12:08 Patient medically screened. jr8 13:34 Data reviewed: vital signs, nurses notes, lab test result(s), EKG, radiologic studies, jr8 plain films. Data interpreted: Pulse oximetry: on BIPAP is 100 %. Interpretation: normal. Counseling: I had a detailed discussion with the patient and/or guardian regarding: the historical points, exam findings, and any diagnostic results supporting the discharge/admit diagnosis, lab results, radiology results, the need for further work-up and treatment in the hospital. ED course: Although it would be ideal for patient to be seen at [facility] for continuity of care. Weather has inhibited us from transport at this time. Will have to admit to ICU here for stabilization and monitoring . 12/21 12:09 Order name: Basic Metabolic Panel [facility] 12/21 12:09 Order name: CBC with Diff [facility] 12/21 12:09 Order name: LFT's [facility] 12/21 12:09 Order name: Magnesium [facility] 12/21 12:09 Order name: NT PRO-BNP [facility] 12/21 12:09 Order name: PT-INR [facility] 12/21 12:09 Order name: Troponin (emerg Dept Use Only) [facility] 12/21 12:16 Order name: Blood Culture Adult (2) [facility] 12/21 12:16 Order name: Procalcitonin [facility] 12/21 12:16 Order name: Lactate [facility] 12/21 13:17 Order name: CBC with Automated Diff; Complete Time: 14:08 EDOK 12/21 13:17 Order name: Protime (+INR); Complete Time: 13:20 EDMS 12/21 13:20 Order name: Lactate; Complete Time: 13:28 EDMS 12/21 13:25 Order name: Basic Metabolic Panel; Complete Time: 13:28 EDOK 12/21 12:09 Order name: XRAY Chest (1 view) [facility] 12/21 12:09 Order name: EKG; Complete Time: 12:16 [facility] 12/21 12:09 Order name: Cardiac monitoring; Complete Time: 12:53 [facility] 12/21 12:09 Order name: EKG - Nurse/Tech; Complete Time: 12:53 [facility] 12/21 12:09 Order name: IV Saline Lock; Complete Time: 12:53 [facility] 12/21 12:16 Order name: BIPAP [facility] 12/21 13:25 Order name: Liver (Hepatic) Function; Complete Time: 13:28 EDOK 12/21 13:25 Order name: Troponin (Emerg Dept Use Only); Complete Time: 13:28 [facility] 12/21 13:25 Order name: NT PRO-BNP; Complete Time: 13:28 [facility] 12/21 13:25 Order name: Magnesium; Complete Time: 13:28 [facility] 12/21 13:58 Order name: CBC Smear Scan; Complete Time: 14:08 EDOK 12/21 13:58 Order name: Procalcitonin; Complete Time: 14:08 [facility] 12/21 16:13 Order name: RAD; Complete Time: 16:42 [facility]OK 12/21 12:09 Order name: Labs collected and sent; Complete Time: 12:53 [facility] 12/21 12:09 Order name: O2 Per Protocol; Complete Time: 12:53 [facility] 12/21 12:09 Order name: O2 Sat Monitoring; Complete Time: 12:54 [facility] Administered Medications: 12:35 Drug: Nitro Drip - (Nitroglycerin 50 mg, D5W 250 ml) Route: IV; Rate: 5 mcg/min; Site: iw PICC; 12:54 Follow up: Rate change 15 mcg/min iw 14:33 Follow up: Rate change 25 mcg/min iw 14:51 Follow up: Response: No adverse reaction; Blood pressure is unchanged; Rate change 35 sg mcg/min 14:52 Follow up: Rate change 35 mcg/min iw 17:44 Follow up: BP 172 / 112; Pulse 100 bpm; Rate change 50 mcg/min sg 19:00 Follow up: Rate change 55 mcg/min; received on GTN at 55mcg/min rr5 19:45 Follow up: IV Status: Infusion continued upon admission rr5 15:45 Drug: Lasix 40 mg Route: IVP; Site: left antecubital; sg 17:30 Drug: Zofran 4 mg Route: IVP; Site: left antecubital; sv Disposition: 12/22 08:07 Co-signature as Attending Physician, Molina Dill MD I agree with the assessment and kdr plan of care. Disposition: 12/21/18 13:38 Hospitalization ordered by Cecille Jung for Inpatient Admission. Preliminary diagnosis are Acute and chronic respiratory failure, Acute combined systolic (congestive) and diastolic (congestive) heart failure, Chronic kidney disease (CKD). - Bed requested for Intensive Care Unit. - Status is Inpatient Admission. ea - Condition is Fair. - Problem is new. - Symptoms have improved. UTI on Admission? No Signatures: Dispatcher [employer] EDMS Yumiko Cordero Stephanie, RN RN Tyron Gonzalez RN RN sg Rittger, Kevin, MD MD [facility] Annette Ferguson RN RN iw Wily Bravo PA PA jr8 Antonio Camacho PA PA cp Garcia, Cindy, RN Calvin Mccormack RN RN jl7 Karissa Liu RN RN ea Roque, Raymond RN rr5 Corrections: (The following items were deleted from the chart) 12/21 13:35 12:42 Severity of symptoms: At its worst the blood pressure was severe, just prior to jr8 arrival, in the emergency department the blood pressure is improved, markedly, jr8 13:35 12:42 Constitutional: Negative for fever, chills, and weight loss, Eyes: Negative for jr8 injury, pain, redness, and discharge, Abdomen/GI: Negative for abdominal pain, nausea, vomiting, diarrhea, and constipation, Neuro: Negative for headache, weakness, numbness, tingling, and seizure, jr8 13:35 12:42 Abdomen/GI: Positive for abdominal pain, nausea and vomiting, jr8 jr8 13:38 13:38 Hospitalization Ordered by Cecille Jung MD for Inpatient Admission. Preliminary jr8 diagnosis is Acute and chronic respiratory failure; Acute combined systolic (congestive) and diastolic (congestive) heart failure. Bed requested for Intensive Care Unit. Status is Inpatient Admission. Condition is Fair. Problem is new. Symptoms have improved. UTI on Admission? No. jr8 14:12 13:38 12/21/2018 13:38 Hospitalization Ordered by Cecille Jung MD for Inpatient jr8 Admission. Preliminary diagnosis is Acute and chronic respiratory failure; Acute combined systolic (congestive) and diastolic (congestive) heart failure; Chronic kidney disease (CKD). Bed requested for Intensive Care Unit. Status is Inpatient Admission. Condition is Fair. Problem is new. Symptoms have improved. UTI on Admission? No. jr8 15:05 14:12 12/21/2018 13:38 Hospitalization Ordered by Kendrick Stevens MD for Inpatient bd Admission. Preliminary diagnosis is Acute and chronic respiratory failure; Acute combined systolic (congestive) and diastolic (congestive) heart failure; Chronic kidney disease (CKD). Bed requested for Intensive Care Unit. Status is Inpatient Admission. Condition is Fair. Problem is new. Symptoms have improved. UTI on Admission? No. jr8 18:10 15:05 12/21/2018 13:38 Hospitalization Ordered by Kendrick Stevens MD for Inpatient bd Admission. Preliminary diagnosis is Acute and chronic respiratory failure; Acute combined systolic (congestive) and diastolic (congestive) heart failure; Chronic kidney disease (CKD). Bed requested for Intensive Care Unit. Status is Inpatient Admission. Condition is Fair. Problem is new. Symptoms have improved. UTI on Admission? No. bd 18:23 18:10 12/21/2018 13:38 Hospitalization Ordered by Cecille Jung MD for Inpatient bd Admission. Preliminary diagnosis is Acute and chronic respiratory failure; Acute combined systolic (congestive) and diastolic (congestive) heart failure; Chronic kidney disease (CKD). Bed requested for Intensive Care Unit. Status is Inpatient Admission. Condition is Fair. Problem is new. Symptoms have improved. UTI on Admission? No. bd 19:12 18:23 12/21/2018 13:38 Hospitalization Ordered by Cecille Jung MD for Inpatient cg Admission. Preliminary diagnosis is Acute and chronic respiratory failure; Acute combined systolic (congestive) and diastolic (congestive) heart failure; Chronic kidney disease (CKD). Bed requested for [facility] ER HOLD. Status is Inpatient Admission. Condition is Fair. Problem is new. Symptoms have improved. UTI on Admission? No. bd 19:37 19:12 12/21/2018 13:38 Hospitalization Ordered by Cecille Jung MD for Inpatient cg Admission. Preliminary diagnosis is Acute and chronic respiratory failure; Acute combined systolic (congestive) and diastolic (congestive) heart failure; Chronic kidney disease (CKD). Bed requested for Intensive Care Unit. Status is Inpatient Admission. Condition is Fair. Problem is new. Symptoms have improved. UTI on Admission? No. cg 20:03 19:37 12/21/2018 13:38 Hospitalization Ordered by Cecille Jung MD for Inpatient ea Admission. Preliminary diagnosis is Acute and chronic respiratory failure; Acute combined systolic (congestive) and diastolic (congestive) heart failure; Chronic kidney disease (CKD). Bed requested for Intensive Care Unit. Status is Inpatient Admission. Condition is Fair. Problem is new. Symptoms have improved. UTI on Admission? No. cg
[2018-12-21 13:50] LABS: Blood Morphology Comment NOT SEEN (NOT SEEN); Platelet Estimate ADEQ; Urine White Blood Cell Casts OK
[2018-12-21] MEDS ORDERED: FUROSEMIDE 40 MG/4 ML VIAL ONE (14:10)
[2018-12-21] MEDS ORDERED: ONDANSETRON 4 MG/2 ML VIAL ONE (17:25)
[2018-12-21] MEDS ORDERED: D50W 25 GM/50 ML SYRINGE IV PRN (20:38)
[2018-12-21] MEDS: INSULIN -REGULAR HUMAN 50 UNIT/0.5 ML ML SQ SCH ×2 (20:38→21:00)
[2018-12-21] MEDS ORDERED: IPRATROPIUM BROM 0.5MG/2.5ML NEB PRN (20:38)
[2018-12-21] MEDS ORDERED: ENOXAPARIN 40 MG/0.4 ML SQ SCH (20:38)
[2018-12-21] MEDS ORDERED: NITROGLYCERIN/D5W 50 MG/250 ML BTL IV PRN (20:38)
[2018-12-21] MEDS ORDERED: ALBUTEROL 2.5 MG/3 ML NEB SOL NEB PRN (20:38)
[2018-12-21] MEDS ORDERED: GLUCAGON 1 MG/VIAL IM PRN (20:38)
[2018-12-21] MEDS ORDERED: FUROSEMIDE 20 MG/ 2ML VIAL IV SCH (20:38)
[2018-12-21] MEDS ORDERED: ONDANSETRON 4 MG/2 ML VIAL IV PRN (20:38)
[2018-12-21] MEDS ORDERED: HOME MED 1 EA UNK (Glimepiride [Glimepiride] 1 MG) PO SCH (21:00)
[2018-12-21] MEDS ORDERED: MILRINONE 20 MG/100 ML IV SCH (21:00)
[2018-12-21] MEDS ORDERED: CARVEDILOL 6.25 MG TAB PO SCH (21:00)
[2018-12-21] MEDS ORDERED: DOCUSATE NA 100 MG CAP PO PRN (21:00)
[2018-12-21] MEDS: SACUBITRIL/VALSARTAN 49/51 MG TAB PO SCH (21:47)
[2018-12-21] MEDS: ENOXAPARIN 30 MG/0.3 ML SQ SCH (23:21)
[2018-12-22 05:31] LABS: Absolute Lymphocytes (CBC) 0.6 K/uL (0.7-4.9); Basophils % 0.7 % (0-1.3); Hematocrit 23.8 % (36.0-45.0); MPV 7.7 fL (7.6-11.3); RBC Red Blood Cell Count 2.44 M/uL (3.86-4.86)
[2018-12-22 05:51] LABS: Potassium 3.7 mmol/L (3.5-5.1)
[2018-12-22] MEDS: INSULIN -REGULAR HUMAN 50 UNIT/0.5 ML ML SQ SCH ×4 (07:30→20:36)
[2018-12-22] MEDS: GLIMEPIRIDE 2 MG TABLET PO SCH ×2 (09:56→16:16)
[2018-12-22] MEDS: FUROSEMIDE 20 MG/ 2ML VIAL IV SCH ×2 (09:56→16:56)
[2018-12-22] MEDS: DIGOXIN 0.125 MG TABLET PO SCH (09:57)
[2018-12-22] MEDS: CARVEDILOL 12.5 MG TAB PO SCH ×2 (09:57→20:35)
[2018-12-22] MEDS: ASPIRIN EC 81 MG TAB PO SCH (09:57)
[2018-12-22] MEDS: ESCITALOPRAM 20 MG TAB PO SCH (09:57)
[2018-12-22] MEDS: ATORVASTATIN 40 MG TAB PO SCH (09:57)
[2018-12-22] MEDS: CLOPIDOGREL 75 MG TABLET PO SCH (09:58)
[2018-12-22] MEDS: SACUBITRIL/VALSARTAN 49/51 MG TAB PO SCH ×2 (09:58→20:35)
[2018-12-22] MEDS: PANTOPRAZOLE 40MG TABLET PO SCH (09:58)
--- NOTE | 2018-12-22 10:35 | EKG ---
Test Date: 2018-12-21 Test Time: 11:55:02 [employer]roll Tax Analyst: HAMMAD MEASUREMENT RESULTS: Intervals: Rate: 104 ID: [id number] QRSD: 96 QT: 302 QTc: 397 [place]: P: 75 ID: [id number] QRS: -6 T: 92 INTERPRETIVE STATEMENTS: Sinus tachycardia Nonspecific ST and T wave abnormality Abnormal ECG Compared to ECG 08/24/2018 13:06:57 Sinus rhythm no longer present ST (T wave) deviation still present Electronically Signed On 12-22-18 10:31:50 CDT by Vitaliy Hook
--- NOTE | 2018-12-22 11:01 | CON ---
Date of Consultation: 12/22/2018 Admitted on 12/21/[address] Stevens. I saw the patient on 12/22/2018. Reason For Consultation: Hypertensive crisis and congestive heart failure. History Of Present Illness: Mrs. 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 She is being seen by Dr. Levy at [facility] by congestive heart failure team. She has a LifeVest on. She came in with dyspne a on exertion, was found to have CHF by chest x-ray. She was very hypertensive and I was consulted. Denied any chest pain, nausea, vomiting, or diaphoresis. Has had some cough, but no fever or no chi lls. Denied PND or palpitations, or syncope. Has had some PND and orthopnea. By the time I saw her pressure still was 170/100 on nitroglycerin drip, which normally does not work for hypertension anyw ay. She was in no acute distress, however, but her monitor showed sinus rhythm. Past Medical History: Atrial fibrillation, congestive heart failure, diabetes, COPD, gastroesophagea l reflux disease, dyslipidemia, hypertension, and anemia. Allergies: SHE IS ALLERGIC TO CODEINE AND IODINE. Medications: At home include Entresto, digoxin, glimepiride, Imdur, metformin, Plavix, Coreg 6.25 b. i.d., Bumex, Lasix, aspirin, milrinone IV and Protonix. Review of Systems: Negative. Social History: Negative. Family History: Noncontributory. Physical Examination: General: She was in no acute distress. Laying flat comfortably. Blood pressure was 170/100, sinus rhythm. HEENT: Negative. Neck: Supple without any lymphadenopathy or bruit, but she did have JVD about 3 cm from the angle of the jaw. Chest: Reveals rales bibasilarly. Cardiac: Revealed tachycardia with an S3 gallop. Abdomen: Benign. Extremities: Revealed no clubbing, cyanosis, or edema. Skin: Her skin was dry. Neurologic: She was intact. Pulses were present distally bilaterally. Diagnostic Data: Her glucose was 145. Her O2 saturation was 100% on face mask. Creatinine is 1.49, hemoglobin 9.2. Her BNP was 14,640. Impression And Plan: Hypertensive crisis in a patient with an ejection fraction of 22%. I would dis continue the nitroglycerin drip. This does not work for hypertension. Jarrellride does if we ever have to, but I would however like to increase her Coreg to 12.5 mg b.i.d., increase her Lasix IV dose to 4 0 b.i.d., increase the Entresto to 49/51 b.i.d. The case was discussed with Dr. Gates. He was cove ring for Dr. Stevens yesterday. Continue the LifeVest use. She will follow up eventually with Dr. Kinga kulkarni. I am assuming she needs to have serial echocardiogram before making a decision about a pacem roseann or a defibrillator. Her other problems including atrial fibrillation that have since resolved. Diabetes is fairly well controlled. Her COPD is well controlled. She also has history of gastroeso phageal reflux disease, dyslipidemia, and anemia that are stable. We will continue to follow Ms. Sukhwinder carrera. PHILL/CHRISTY Voice ID: [id number] Report ID: [id number]
--- NOTE | 2018-12-22 14:17 | P.PN ---
Subjective Date of Service: 12/22/18 Primary Care Provider: Dr Stevens Chief Complaint: Elevated BP Pt seen and examined at bedside. Doing well overall. BP controlled for now. Weaning off the nitro ggt at this time. No c.o overnight. Denies CP or SOB or any other concerns Review of Systems 10-point ROS is otherwise unremarkable Physical Examination - Vital Signs Temperature: 98.5 F Blood Pressure: 109/74 Pulse: 81 Respirations: 16 Pulse Ox (%): 100 - Physical Exam General: Alert, Cachectic Neck: Supple, JVD distended Respiratory: Normal air movement, Crackles/rales Cardiovascular: Regular rate/rhythm, Normal S1 S2 Gastrointestinal: Normal bowel sounds, No tenderness Musculoskeletal: No tenderness Integumentary: No rashes Neurological: Normal speech, Normal tone, Normal affect Lymphatics: No axilla or inguinal lymphadenopathy - Studies Medications List Reviewed: Yes Assessment And Plan - Current Problems (Diagnosis) (1) Hypertensive urgency Current Visit: Yes Status: Acute Plan: Hypertensive Urgency without evidence of End organ Damage. -Currently on Nitro ggt. Will wean off per Cardiology reccs. If needed will add nipride for BP control. -Increase her Coreg to 12.5 mg b.i.d., increase her Lasix IV dose to 40 b.i.d., increase the Entresto to 49/51 b.i.d. -Cardiology consulted. appreciated Reccs -ECHO pending at this time. last echo with Ef of 22% -Monitor at this time. Doing well overall. -Continue with Lifevest and will need f/u with Dr madden outpt once cleared for DC from here (2) Thoracic aneurysm without mention of rupture Onset Date: 02/13/18 Current Visit: No Status: Chronic Plan: Stable at this time Qualifiers: Presence of rupture: without rupture (3) CAD (coronary artery disease) Onset Date: 04/25/17 Current Visit: No Status: Chronic Qualifiers: Coronary Disease-Associated Artery/Lesion type: [place] artery [place] vs. transplanted heart: [place] heart Associated angina: without angina Qualified Code(s): I25.10 - Atherosclerotic heart disease of [place] coronary artery without angina pectoris (4) CHF (congestive heart failure) Onset Date: 04/25/17 Current Visit: No Status: Chronic Qualifiers: Heart failure type: systolic Heart failure chronicity: chronic Qualified Code(s): I50.22 - Chronic systolic (congestive) heart failure (5) COPD (chronic obstructive pulmonary disease) Onset Date: 10/03/17 Current Visit: No Status: Chronic Qualifiers: COPD type: chronic bronchitis Chronic bronchitis type: simple Qualified Code(s): J41.0 - Simple chronic bronchitis (6) Chronic renal disease, stage III Onset Date: 02/13/18 Current Visit: No Status: Chronic (7) Diabetes mellitus type 2 Onset Date: 04/25/17 Current Visit: No Status: Chronic (8) Hyperlipidemia Onset Date: 10/03/17 Current Visit: No Status: Chronic Qualifiers: Hyperlipidemia type: mixed hyperlipidemia (9) Hypertensive disorder, systemic arterial Onset Date: 04/25/17 Current Visit: No Status: Chronic - Plan Pending clinical Improvement Discharge Plan: Other Plan to discharge in: Greater than 2 days - Code Status/Comfort Care Code Status Assessed: Yes Critical Care: Yes
[2018-12-22 15:03] LABS: Blood O2 Saturation 98.8 % (92-98.5)
[2018-12-22] MEDS: ENOXAPARIN 30 MG/0.3 ML SQ SCH (16:56)
[2018-12-22] MEDS: GLUCERNA SHAKE 237 ML CAN PO SCH (20:34)
[2018-12-23 05:11] LABS: Absolute Lymphocytes (CBC) 0.9 K/uL (0.7-4.9); Basophils % 1.1 % (0-1.3); Hematocrit 26.2 % (36.0-45.0); MPV 7.7 fL (7.6-11.3); RBC Red Blood Cell Count 2.66 M/uL (3.86-4.86)
[2018-12-23 05:19] LABS: Potassium 3.8 mmol/L (3.5-5.1)
[2018-12-23] MEDS: INSULIN -REGULAR HUMAN 50 UNIT/0.5 ML ML SQ SCH ×4 (07:30→20:21)
[2018-12-23] MEDS: SACUBITRIL/VALSARTAN 49/51 MG TAB PO SCH (08:14)
[2018-12-23] MEDS: FUROSEMIDE 20 MG/ 2ML VIAL IV SCH ×2 (08:14→20:19)
[2018-12-23] MEDS: ASPIRIN EC 81 MG TAB PO SCH (08:14)
[2018-12-23] MEDS: CARVEDILOL 12.5 MG TAB PO SCH ×2 (08:15→20:18)
[2018-12-23] MEDS: ESCITALOPRAM 20 MG TAB PO SCH (08:15)
[2018-12-23] MEDS: GLIMEPIRIDE 2 MG TABLET PO SCH ×2 (08:15→17:00)
[2018-12-23] MEDS: ATORVASTATIN 40 MG TAB PO SCH (08:15)
[2018-12-23] MEDS: CLOPIDOGREL 75 MG TABLET PO SCH (08:16)
[2018-12-23] MEDS: DIGOXIN 0.125 MG TABLET PO SCH (08:16)
[2018-12-23] MEDS: PANTOPRAZOLE 40MG TABLET PO SCH (08:16)
[2018-12-23] MEDS: GLUCERNA SHAKE 237 ML CAN PO SCH ×2 (08:17→20:21)
--- NOTE | 2018-12-23 11:30 | P.PN ---
Subjective Date of Service: 12/23/18 Primary Care Provider: Dr Stevens Chief Complaint: Elevated BP Pt seen and examined at bedside. Doing well overall. BP controlled for now. Now off nitro ggt. BP is on lower side today. No c/o. States she is in a unfamiliar place Review of Systems 10-point ROS is otherwise unremarkable Physical Examination - Vital Signs Temperature: 97.7 F Blood Pressure: 86/57 Pulse: 88 Respirations: 17 Pulse Ox (%): 98 - Physical Exam General: Alert, In no apparent distress HEENT: Atraumatic, PERRLA, EOMI Neck: Supple, JVD not distended Respiratory: Clear to auscultation bilaterally, Normal air movement Cardiovascular: Regular rate/rhythm, Normal S1 S2 Gastrointestinal: Normal bowel sounds, No tenderness Musculoskeletal: No tenderness Integumentary: No rashes Neurological: Normal speech, Normal tone, Normal affect Lymphatics: No axilla or inguinal lymphadenopathy - Studies Medications List Reviewed: Yes Assessment And Plan - Current Problems (Diagnosis) (1) Hypertensive urgency Current Visit: Yes Status: Acute Plan: Hypertensive Urgency without evidence of End organ Damage. -Now off nitro ggt. Pt is now Hypotensive. -On Coreg 12.5 mg b.i.d., Decreased the Lasix to 20mg BID due to Hypotension and Decrease the Entresto to 25/21 b.i.d. -Cardiology consulted. appreciated Reccs -ECHO pending at this time. last echo with Ef of 22% -Monitor at this time. Doing well overall. -Continue with Lifevest and will need f/u with Dr madden outpt once cleared for DC from here (2) Thoracic aneurysm without mention of rupture Onset Date: 02/13/18 Current Visit: No Status: Chronic Plan: Stable at this time Qualifiers: Presence of rupture: without rupture (3) CAD (coronary artery disease) Onset Date: 04/25/17 Current Visit: No Status: Chronic Qualifiers: Coronary Disease-Associated Artery/Lesion type: [place] artery [place] vs. transplanted heart: [place] heart Associated angina: without angina Qualified Code(s): I25.10 - Atherosclerotic heart disease of [place] coronary artery without angina pectoris (4) CHF (congestive heart failure) Onset Date: 04/25/17 Current Visit: No Status: Chronic Qualifiers: Heart failure type: systolic Heart failure chronicity: chronic Qualified Code(s): I50.22 - Chronic systolic (congestive) heart failure (5) COPD (chronic obstructive pulmonary disease) Onset Date: 10/03/17 Current Visit: No Status: Chronic Qualifiers: COPD type: chronic bronchitis Chronic bronchitis type: simple Qualified Code(s): J41.0 - Simple chronic bronchitis (6) Chronic renal disease, stage III Onset Date: 02/13/18 Current Visit: No Status: Chronic (7) Diabetes mellitus type 2 Onset Date: 04/25/17 Current Visit: No Status: Chronic (8) Hyperlipidemia Onset Date: 10/03/17 Current Visit: No Status: Chronic Qualifiers: Hyperlipidemia type: mixed hyperlipidemia (9) Hypertensive disorder, systemic arterial Onset Date: 04/25/17 Current Visit: No Status: Chronic - Plan Pending clinical Improvement at this time. WIll continue to monitor closely in ICU with change of medication. Discharge Plan: Home Plan to discharge in: Greater than 2 days - Code Status/Comfort Care Code Status Assessed: Yes Critical Care: Yes
[2018-12-23] MEDS: ENOXAPARIN 30 MG/0.3 ML SQ SCH (18:03)
[2018-12-23] MEDS: SACUBITRIL/VALSARTAN 24/26 MG TAB PO SCH (20:18)
[2018-12-24] MEDS: INSULIN -REGULAR HUMAN 50 UNIT/0.5 ML ML SQ SCH ×4 (07:30→21:00)
[2018-12-24] MEDS: FUROSEMIDE 20 MG/ 2ML VIAL IV SCH ×2 (08:17→21:20)
[2018-12-24] MEDS: SACUBITRIL/VALSARTAN 24/26 MG TAB PO SCH ×2 (08:17→21:19)
[2018-12-24] MEDS: CARVEDILOL 12.5 MG TAB PO SCH ×2 (08:17→21:15)
[2018-12-24] MEDS: DIGOXIN 0.125 MG TABLET PO SCH (08:18)
[2018-12-24] MEDS: GLIMEPIRIDE 2 MG TABLET PO SCH ×2 (08:18→17:36)
[2018-12-24] MEDS: ASPIRIN EC 81 MG TAB PO SCH (08:18)
[2018-12-24] MEDS: PANTOPRAZOLE 40MG TABLET PO SCH (08:19)
[2018-12-24] MEDS: CLOPIDOGREL 75 MG TABLET PO SCH (08:19)
[2018-12-24] MEDS: ESCITALOPRAM 20 MG TAB PO SCH (08:19)
[2018-12-24] MEDS: ATORVASTATIN 40 MG TAB PO SCH (08:19)
[2018-12-24] MEDS: GLUCERNA SHAKE 237 ML CAN PO SCH ×2 (08:21→21:00)
[2018-12-24] MEDS ORDERED: Pharmacy Consult 1 EA XX PRN (11:27)
--- NOTE | 2018-12-24 11:35 | P.PN ---
Subjective Date of Service: 12/24/18 Primary Care Provider: Dr Stevens Chief Complaint: Elevated BP Pt seen and examined at bedside. Case discussed with cardiology BP controlled for now. Doing well overall no complaints to offer overnight. Review of Systems 10-point ROS is otherwise unremarkable Physical Examination - Vital Signs Temperature: 98 F Blood Pressure: 123/78 Pulse: 89 Respirations: 20 Pulse Ox (%): 96 - Physical Exam General: Alert, In no apparent distress HEENT: Atraumatic, PERRLA, EOMI Neck: Supple, JVD not distended Respiratory: Clear to auscultation bilaterally, Normal air movement Cardiovascular: Regular rate/rhythm, Normal S1 S2 Gastrointestinal: Normal bowel sounds, No tenderness Musculoskeletal: No tenderness Integumentary: No rashes Neurological: Normal speech, Normal tone, Normal affect Lymphatics: No axilla or inguinal lymphadenopathy - Studies Microbiology Data (last 24 hrs): 12/21/18 12:35 Blood - Blood Aerobic Blood Culture - Final Staph Epidermidis 12/21/18 12:35 Blood - Blood Gram Stain - Final 12/21/18 12:35 Blood - Blood Anaerobic Blood Culture - Final Staph Epidermidis 12/21/18 12:35 Blood - Blood Gram Stain - Final 12/21/18 12:55 Blood - Blood Aerobic Blood Culture - Final Staph Epidermidis 12/21/18 12:55 Blood - Blood Gram Stain - Final 12/21/18 12:55 Blood - Blood Anaerobic Blood Culture - Final Staph Epidermidis 12/21/18 12:55 Blood - Blood Gram Stain - Final Medications List Reviewed: Yes Assessment And Plan - Current Problems (Diagnosis) (1) Hypertensive urgency Current Visit: Yes Status: Acute Plan: Hypertensive Urgency without evidence of End organ Damage. Now resolved -On Coreg 12.5 mg b.i.d., Lasix 20mg BID and Entresto 25/21 b.i.d. -Cardiology consulted. appreciated Reccs -ECHO pending at this time. last echo with Ef of 22% -Monitor at this time. Doing well overall. -Continue with Lifevest and will need f/u with Dr madden outpt once cleared for DC from here (2) Thoracic aneurysm without mention of rupture Onset Date: 02/13/18 Current Visit: No Status: Chronic Plan: Stable at this time Qualifiers: Presence of rupture: without rupture (3) CAD (coronary artery disease) Onset Date: 04/25/17 Current Visit: No Status: Chronic Qualifiers: Coronary Disease-Associated Artery/Lesion type: campo artery [place] vs. transplanted heart: campo heart Associated angina: without angina Qualified Code(s): I25.10 - Atherosclerotic heart disease of campo coronary artery without angina pectoris (4) CHF (congestive heart failure) Onset Date: 04/25/17 Current Visit: No Status: Chronic Qualifiers: Heart failure type: systolic Heart failure chronicity: chronic Qualified Code(s): I50.22 - Chronic systolic (congestive) heart failure (5) COPD (chronic obstructive pulmonary disease) Onset Date: 10/03/17 Current Visit: No Status: Chronic Qualifiers: COPD type: chronic bronchitis Chronic bronchitis type: simple Qualified Code(s): J41.0 - Simple chronic bronchitis (6) Chronic renal disease, stage III Onset Date: 02/13/18 Current Visit: No Status: Chronic (7) Diabetes mellitus type 2 Onset Date: 04/25/17 Current Visit: No Status: Chronic (8) Hyperlipidemia Onset Date: 10/03/17 Current Visit: No Status: Chronic Qualifiers: Hyperlipidemia type: mixed hyperlipidemia (9) Hypertensive disorder, systemic arterial Onset Date: 04/25/17 Current Visit: No Status: Chronic - Plan Patient blood cultures positive for Staph epidermidis at this time. Will start patient on IV vancomycin. Will continue to monitor here in the ICU and transfer to the regular floor in next 24-8 hr. Discharge Plan: Home Plan to discharge in: Greater than 2 days - Code Status/Comfort Care Code Status Assessed: Yes Critical Care: No
[2018-12-24] MEDS: VANCOMYCIN/NS 1 gm 1 GM/250 ML BAG IV SCH (12:07)
[2018-12-24 12:21] LABS: Absolute Lymphocytes (CBC) 0.6 K/uL (0.7-4.9); Basophils % 0.9 % (0-1.3); Hematocrit 26.3 % (36.0-45.0); Lymphocytes % 10.5 % (15.3-44.8); MPV 8.2 fL (7.6-11.3)
[2018-12-24 12:33] LABS: Albumin 3.4 g/dL (3.4-5.0); Bilirubin Total 0.3 mg/dL (0.2-1.0); Potassium 3.9 mmol/L (3.5-5.1); Protein, Total 7.1 g/dL (6.4-8.2)
[2018-12-24] MEDS: ACETAMINOPHEN 325 MG TABLET PO PRN (13:22)
--- NOTE | 2018-12-24 14:45 | RAD REPORT ---
EXAM DESCRIPTION: RAD - Chest Single View - 12/24/2018 2:28 pm CLINICAL HISTORY: Shortness of breath COMPARISON: December 21 TECHNIQUE: AP portable chest image was obtained 1416 hours . FINDINGS: Patient is significantly rotated on the examination. Patient was unable to hold positionin g. External defibrillator device is in place. Left lung field is clear. Right lung field is more limited in assessment due to the rotation and over lying cardiomediastinal structures. A significant right lung field finding is doubtful. Heart size is enlarged. Vasculature is mostly obscured. No measurable pleural effusion and no pneumot horax. No acute bony abnormality seen. No acute aortic findings suspected. IMPRESSION: Limited portable study as detailed. No new or progressive finding suspected.
[2018-12-24] MEDS: ENOXAPARIN 30 MG/0.3 ML SQ SCH (17:35)
[2018-12-25 05:03] LABS: Absolute Lymphocytes (CBC) 0.8 K/uL (0.7-4.9); Basophils % 0.8 % (0-1.3); Hematocrit 25.4 % (36.0-45.0); Lymphocytes % 11.5 % (15.3-44.8); MPV 7.7 fL (7.6-11.3); RBC Red Blood Cell Count 2.62 M/uL (3.86-4.86)
[2018-12-25 05:20] LABS: Albumin 3.4 g/dL (3.4-5.0); Bilirubin Total 0.4 mg/dL (0.2-1.0); Potassium 3.7 mmol/L (3.5-5.1)
--- NOTE | 2018-12-25 07:11 | EKG ---
Test Date: 2018-12-24 Test Time: 13:57:36 Tractor Technician: RT Chance MEASUREMENT RESULTS: Intervals: Rate: 72 LA: 170 QRSD: 98 QT: 388 QTc: 424 Dania: P: 19 LA: 170 QRS: 1 T: 81 INTERPRETIVE STATEMENTS: Normal sinus rhythm Cannot rule out Inferior infarct, age undetermined ST & T wave abnormality, consider anterior ischemia Abnormal ECG Compared to ECG 12/21/2018 11:55:02 Myocardial infarct finding now present Possible ischemia now present Sinus tachycardia no longer present ST (T wave) deviation still present Electronically Signed On 12-25-18 07:10:50 CDT by John Foster
[2018-12-25] MEDS: INSULIN -REGULAR HUMAN 50 UNIT/0.5 ML ML SQ SCH ×4 (07:18→21:00)
[2018-12-25] MEDS: ESCITALOPRAM 20 MG TAB PO SCH (08:02)
[2018-12-25] MEDS: SACUBITRIL/VALSARTAN 24/26 MG TAB PO SCH ×2 (08:02→22:08)
[2018-12-25] MEDS: ASPIRIN EC 81 MG TAB PO SCH (08:02)
[2018-12-25] MEDS: DIGOXIN 0.125 MG TABLET PO SCH (08:02)
[2018-12-25] MEDS: PANTOPRAZOLE 40MG TABLET PO SCH (08:02)
[2018-12-25] MEDS: ATORVASTATIN 40 MG TAB PO SCH (08:03)
[2018-12-25] MEDS: GLIMEPIRIDE 2 MG TABLET PO SCH ×2 (08:03→17:31)
[2018-12-25] MEDS: CARVEDILOL 12.5 MG TAB PO SCH ×2 (08:03→22:08)
[2018-12-25] MEDS: CLOPIDOGREL 75 MG TABLET PO SCH (08:03)
[2018-12-25] MEDS: FUROSEMIDE 20 MG/ 2ML VIAL IV SCH ×2 (08:03→22:08)
[2018-12-25] MEDS: GLUCERNA SHAKE 237 ML CAN PO SCH ×2 (08:25→22:08)
--- NOTE | 2018-12-25 09:34 | PN ---
Date of Progress Note: 12/24/2018 Ms. Ayala has severe cardiomyopathy, awaiting a LifeVest. She follows up in [place] with [facility] heart failure team. Has been on Entresto and Coreg. Came in very hypertensive. We increased her carvedilol and Lasix as well as Entresto. However, she became hypotensive. Dr. Jung had to cut ba ck her dosages to 20 mg twice a day on the Lasix. She decreased her Entresto back to 24/ twice a d ay. Her carvedilol dose remained the same. She is normotensive now. We will continue to watch her in the ICU 1 more day. PHILL/CHRISTY Voice ID: [id number] Report ID: [id number]
--- NOTE | 2018-12-25 10:04 | PN ---
Date of Progress Note: 12/23/2018 Ms. Ayala remains in the ICU. She had initially came in with pressures of 220/120. Yesterday, I discontinued the IV nitroglycerin. I increased her Entresto from 24/26 to 49/51 mg twice a day. We will also increase her Lasix dose and increase her carvedilol to 12.5 mg once a day. Today, she has a blood pressure of 108/78. She is feeling better. No arrhythmia. Hopeful to continue her medical r egimen if she tolerates it. I will discuss the case further with Dr. Jung. Ms. Ayala is wearing a LifeVest, she has severe cardiomyopathy. She is awaiting a repeat echocard iogram, to manage this in [place] for possible defibrillator along the way. PHILL/CHRISTY Voice ID: [id number] Report ID: [id number]
[2018-12-25] MEDS: ENOXAPARIN 30 MG/0.3 ML SQ SCH (17:31)
--- NOTE | 2018-12-25 21:00 | PN ---
Date of Progress Note: 12/25/2018 Patient is comfortable tonight. She continues to lay on her right side and still hypotensive despite some adjustment in her medication dose. However, I feel she could probably be transferred to floor care in the morning assuming there is no change in her general condition and start some physical therapy professor apy, which apparently she has not been getting at home and she does have home health. HR/MODL Voice ID: [id number] Report ID: [id number]
[2018-12-26] MEDS: VANCOMYCIN/NS 1 gm 1 GM/250 ML BAG IV SCH (02:32)
[2018-12-26 06:46] VITALS: BMI 18.3
[2018-12-26] MEDS: INSULIN -REGULAR HUMAN 50 UNIT/0.5 ML ML SQ SCH ×4 (07:30→21:00)
[2018-12-26] MEDS: SACUBITRIL/VALSARTAN 24/26 MG TAB PO SCH ×2 (08:46→22:09)
[2018-12-26] MEDS: CLOPIDOGREL 75 MG TABLET PO SCH (08:46)
[2018-12-26] MEDS: ASPIRIN EC 81 MG TAB PO SCH (08:46)
[2018-12-26] MEDS: DIGOXIN 0.125 MG TABLET PO SCH (08:46)
[2018-12-26] MEDS: FUROSEMIDE 20 MG/ 2ML VIAL IV SCH ×2 (08:46→22:10)
[2018-12-26] MEDS: CARVEDILOL 12.5 MG TAB PO SCH ×2 (08:47→22:09)
[2018-12-26] MEDS: PANTOPRAZOLE 40MG TABLET PO SCH (08:47)
[2018-12-26] MEDS: ESCITALOPRAM 20 MG TAB PO SCH (08:47)
[2018-12-26] MEDS: GLIMEPIRIDE 2 MG TABLET PO SCH ×2 (08:47→16:39)
[2018-12-26] MEDS: ATORVASTATIN 40 MG TAB PO SCH (08:47)
[2018-12-26] MEDS: GLUCERNA SHAKE 237 ML CAN PO SCH ×2 (08:48→21:00)
--- NOTE | 2018-12-26 10:42 | PN ---
Date of Progress Note: 12/25/2018 Subjective: Ms. Ayala has been followed in the ICU for acute exacerbation of chronic systolic con gestive heart failure. Initially, she was very hypertensive. With her medical regimen right now wit h carvedilol, Lasix, and Entresto a 24/26 mg daily, her blood pressure has stabilized. She feels bet ter. She is more awake, more alert. She is eating. She remains in sinus rhythm. No complaint. No edema. I will continue her present regimen. Maybe watch her 1 more day in the ICU. PHILL/CHRISTY Voice ID: [id number] Report ID: [id number]
--- NOTE | 2018-12-26 11:45 | PN ---
Date of Progress Note: 12/26/2018 Subjective: Ms. Ayala remains in the ICU. She has been in the ICU for few days because of acute exacerbation of chronic systolic congestive heart failure. She has a known ejection fraction of 20-2 5%. She is wearing a LifeVest. She is following up with congestive heart failure team at [facility] in [place]. She is very stable. No clinical evidence of congestive heart failure by phy sical examination. She has no rales, no edema. She is awake, alert, oriented, eating well. I am co mfortable with her going to her floor with her present medical regimen. Have her do some physical th erapy and follow up with her cia agent at [place] as soon as possible. The decision regarding biv entricular pacemaker and defibrillator hopefully will be made soon by her cia agent in [place] aft er repeat echocardiography on her present regimen. PHILL/CHRISTY Voice ID: [id number] Report ID: [id number]
[2018-12-26] MEDS: ENOXAPARIN 30 MG/0.3 ML SQ SCH (16:39)
[2018-12-27 05:16] LABS: Absolute Lymphocytes (CBC) 0.5 K/uL (0.7-4.9); Basophils % 0.6 % (0-1.3); Hematocrit 25.3 % (36.0-45.0); Lymphocytes % 6.5 % (15.3-44.8); RBC Red Blood Cell Count 2.56 M/uL (3.86-4.86)
[2018-12-27] MEDS: INSULIN -REGULAR HUMAN 50 UNIT/0.5 ML ML SQ SCH ×4 (07:30→21:00)
[2018-12-27] MEDS: ATORVASTATIN 40 MG TAB PO SCH (07:53)
[2018-12-27] MEDS: ESCITALOPRAM 20 MG TAB PO SCH (07:53)
[2018-12-27] MEDS: ASPIRIN EC 81 MG TAB PO SCH (07:53)
[2018-12-27] MEDS: GLIMEPIRIDE 2 MG TABLET PO SCH ×2 (07:54→16:32)
[2018-12-27] MEDS: PANTOPRAZOLE 40MG TABLET PO SCH (07:54)
[2018-12-27] MEDS: CLOPIDOGREL 75 MG TABLET PO SCH (07:54)
[2018-12-27] MEDS: GLUCERNA SHAKE 237 ML CAN PO SCH ×2 (07:55→21:00)
[2018-12-27] MEDS: SACUBITRIL/VALSARTAN 24/26 MG TAB PO SCH ×2 (08:04→22:09)
[2018-12-27] MEDS: FUROSEMIDE 20 MG/ 2ML VIAL IV SCH ×2 (08:04→22:09)
[2018-12-27] MEDS: CARVEDILOL 12.5 MG TAB PO SCH ×2 (08:04→22:09)
[2018-12-27] MEDS: DIGOXIN 0.125 MG TABLET PO SCH (08:31)
[2018-12-27 10:48] LABS: Anisocytosis 1+; Blood Morphology Comment NOTED (NOT SEEN); Platelet Estimate ADEQ; Poikilocytosis 1+
[2018-12-27] MEDS: VANCOMYCIN/NS 1 gm 1 GM/250 ML BAG IV SCH (13:00)
[2018-12-27] MEDS: ACETAMINOPHEN 325 MG TABLET PO PRN (15:35)
[2018-12-27] MEDS: ENOXAPARIN 30 MG/0.3 ML SQ SCH (16:35)
--- NOTE | 2018-12-27 18:55 | PN ---
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 She seems to be doing better now. Her heart condition is probably stable as it had ever been. Her cellulitis seems to have improved. I think vancomycin could be stopped and if she continues to do well tomorrow, perhaps. DOMITILA/CHRISTY Voice ID: [id number] Report ID: [id number] MTDChristiane
[2018-12-28 05:48] LABS: Absolute Lymphocytes (CBC) 0.9 K/uL (0.7-4.9); Basophils % 1.2 % (0-1.3); Hematocrit 23.7 % (36.0-45.0); Lymphocytes % 17.3 % (15.3-44.8); MPV 8.2 fL (7.6-11.3); RBC Red Blood Cell Count 2.43 M/uL (3.86-4.86)
[2018-12-28] MEDS: INSULIN -REGULAR HUMAN 50 UNIT/0.5 ML ML SQ SCH ×3 (07:30→16:01)
[2018-12-28] MEDS: ATORVASTATIN 40 MG TAB PO SCH (09:00)
[2018-12-28] MEDS: GLUCERNA SHAKE 237 ML CAN PO SCH (09:00)
[2018-12-28 09:08] VITALS: O2SAT 98
[2018-12-28] MEDS: SACUBITRIL/VALSARTAN 24/26 MG TAB PO SCH (09:17)
[2018-12-28] MEDS: DIGOXIN 0.125 MG TABLET PO SCH (09:17)
[2018-12-28] MEDS: FUROSEMIDE 20 MG/ 2ML VIAL IV SCH (09:18)
[2018-12-28] MEDS: GLIMEPIRIDE 2 MG TABLET PO SCH ×2 (09:18→18:01)
[2018-12-28] MEDS: PANTOPRAZOLE 40MG TABLET PO SCH (09:18)
[2018-12-28] MEDS: ESCITALOPRAM 20 MG TAB PO SCH (09:18)
[2018-12-28] MEDS: CARVEDILOL 12.5 MG TAB PO SCH (09:19)
[2018-12-28] MEDS: CLOPIDOGREL 75 MG TABLET PO SCH (09:19)
[2018-12-28] MEDS: ASPIRIN EC 81 MG TAB PO SCH (09:19)
--- NOTE | 2018-12-28 14:24 | PN ---
Date of Progress Note: 12/27/2018 The patient states she feels better today, although she has been lying in bed most of the time. Ther apy was refused on her last in the ICU. Her vital signs are stable. She was seen by Paige gutierrez discharged to follow up with the CHF team in [place] shortly after discharge. Her vancomycin will be discontinued today. If she is stable by tomorrow, she probably will be discharged . HR/MODL Voice ID: [id number] Report ID: [id number]
--- NOTE | 2018-12-28 14:24 | HP ---
Date of Admission: 12/21/2018 Chief Complaint: Hypertension. History Of Present Illness: According to the patient's daughter, she has been doing fine with slight elevations of blood pressure reading a few days prior to this event, which hospitalized her. Stated she had just gone down from the street to a neighbor when the home health called her and said her bl ood pressure was at a significantly higher level. When she returned home, she was told it was 210/11 5 and she was therefore brought to the emergency room where she was treated as a hypertensive crisis. The patient was then admitted. Past History: The patient has a long history of cardiovascular disease. She has had a LifeVest. Donya dobbins has had IVs on a continuous basis since she has been seen for CHF with an ejection fraction of 22% and atrial fib. She has had numerous medications and various doses of them by the both Cardiology he re, myself and congestive heart failure continuously. The patient also has a history of N IDDM, which is in relatively good control and her blood pressure which up until lately has been varia ble but fairly good control. Also has a history of COPD, was a smoker and it seemed to be under bett er control as of late. Social History: As above. Family History: Noncontributory. Physical Examination: General: Patient is a rather cachectic, elderly female with some obvious discomfort and dyspnea. Vital Signs: Blood pressure on scene was 170/100. Head and neck: Normocephalic. Pupils are equal, reactive to light and accommodation. Fundi negativ e. Trachea midline. Thyroid not palpable. ENT: Negative. Chest: Bilateral rhonchi, bilateral rales. Adequate air entry and movement. No use of accessory mu scles. Cardiovascular: PMI in midclavicular line. Heart sounds normal. Peripheral pulses are present and equal bilaterally. Abdomen: No organomegaly. Bowel sounds present. Extremities: Slightly dehydrated. Good tone and movement bilaterally. Reflexes physiologic. Rectal and Pelvic: Deferred. Impression: Patient will be continued on various medications in an attempt to control her blood pres sure. There are some changes being made in her beta presley and her Entresto. Continue LifeVest use . Depending on her response, the possibility of [facility] transfer has to be considered. Final Diagnoses: Hypertensive crisis; congestive heart failure, severe; chronic obstructive pulmonar y disease; atrial fibrillation; lou-wjiurpj-rpwzewynt diabetes mellitus. HR/MODL Voice ID: [id number]
[2018-12-28 16:24] VITALS: BP 97/54; TEMP 98.1
[2018-12-28] MEDS: ENOXAPARIN 30 MG/0.3 ML SQ SCH (18:01)
[2018-12-28] MEDS ORDERED: ATORVASTATIN 40 MG TAB PO SCH (21:00)
--- NOTE | 2018-12-29 10:43 | PN ---
Date of Progress Note: 12/28/2018 Patient states she feels somewhat better today. She has actually participated in physical therapy an d she is well enough to be discharged. Continue on usual medication with a change being the slight i ncrease in her diuretic dose of medication. She is to contact our CHF team in [place] for an appoint ment. Home health was reinstituted with the addition of physical therapy. HR/MODL Voice ID: [id number] Report ID: [id number]
== END 2018-12-28 18:34 | disposition home health service (06) | DRG 291 ==
LOC: ER 11:48 → ERHOLD 14:43 → 3RD-ICU 16:24 → 4TH 12-26 18:30
PROVIDERS: ADMIT Family Medicine; ATTEND Family Medicine
DX: I13.0 Hypertensive heart and chronic kidney disease with heart failure and stage 1 through stage 4 chronic kidney disease, or unspecified chronic kidney disease (principal); I50.23 Acute on chronic systolic (congestive) heart failure; I42.0 Dilated cardiomyopathy; I16.0 Hypertensive urgency; N18.3 Chronic kidney disease, stage 3 (moderate); E11.22 Type 2 diabetes mellitus with diabetic chronic kidney disease; I50.84 End stage heart failure; J44.9 Chronic obstructive pulmonary disease, unspecified; E78.5 Hyperlipidemia, unspecified; I25.10 Atherosclerotic heart disease of native coronary artery without angina pectoris; I71.2 Thoracic aortic aneurysm, without rupture; I48.91 Unspecified atrial fibrillation
CPT/HCPCS: 36415; 71045; 80048; 80053; 80076; 80202; 82565; 82805; 82962; 83605; 83735; 83880; 84145; 84484; 85025; 85610; 87040; 87077; 87186; 87205; 93005; 94660; 94760; 96365; 96366; 96375; 97110; 97112; 97116; 97530; 99285; J1650; J1940; J2405; J3370

== ENCOUNTER 2019-01-01 11:26 | Inpatient (IN) | payer OTHER ==
[2019-01-01 13:12] LABS: Absolute Lymphocytes (CBC) 0.6 K/uL (0.7-4.9); Basophils % 0.9 % (0-1.3); Hematocrit 24.2 % (36.0-45.0); Lymphocytes % 9.9 % (15.3-44.8); MPV 7.8 fL (7.6-11.3); RBC Red Blood Cell Count 2.46 M/uL (3.86-4.86)
[2019-01-01 13:34] LABS: BUN Blood Urea Nitrogen 28 mg/dL (7-18); Bicarbonate 32 mmol/L (21-32); Glucose Level 114 mg/dL (74-106); Magnesium 2.5 mg/dL (1.8-2.4); Sodium Level 140 mmol/L (136-145); Troponin (Emerg Dept Use Only) < 0.02 ng/mL (0.0-0.045)
[2019-01-01] MEDS ORDERED: NA CHLORIDE 0.9% 500 ML ONE (13:55)
--- NOTE | 2019-01-01 17:35 | EDPHYS ---
Physician Documentation [facility] Name: Christa Ayala Age: 73 yrs Sex: Female : 1945 Arrival Date: 01/01/2019 Time: 11:41 Bed 5 Private MD: ED Physician Ramez Sanchez HPI: 01/01 12:31 This 73 yrs old Black Female presents to ER via EMS with complaints of Defibrillator rn went off. 12:31 The patient presents with a history of heart racing. Onset: The symptoms/episode rn began/occurred this morning. Duration: The patient or guardian reports a single episode. Modifying factors: The symptoms are aggravated by nothing. The symptoms are alleviated by nothing. Severity of symptoms: At their worst the symptoms were moderate in the emergency department the symptoms have resolved. It is unknown whether or not the patient has had similar symptoms in the past. Per EMS report, was asleep and around 0430 external defibrillator went off, advised shock, patient unaware of events, does not recall shock administered, family and home health spoke with device company who reported HR into 180s, unclear rhythm. Patient asymptomatic, denies chest pain/sob/vomiting/diaphoresis. . Historical: - Allergies: 16:21 Codeine; tw2 16:21 Demerol; tw2 16:21 Iodine; tw2 - Home Meds: 16:21 acetaminophen 325 mg Oral tab 1 -2 tabs every 4-6 hours for Pain [Active]; aspirin 81 tw2 mg Oral TbEC 1 tab once daily [Active]; atorvastatin 40 mg Oral tab 1 tab nightly [Active]; bumetanide 1 mg Oral tab 1 tab 2 times per day [Active]; carvedilol 6.25 mg Oral tab 1 tab 2 times per day [Active]; digoxin 125 mcg Oral tab 1 tab once daily [Active]; escitalopram oxalate 10 mg Oral tab 1 tab once daily [Active]; glimepiride 1 mg Oral tab 1 tab once daily [Active]; isosorbide mononitrate 30 mg Oral Tb24 1 tab once daily [Active]; metformin 1,000 mg Oral tab 1 tab 2 times per day [Active]; milrinone 400 mcg/ml intravenous continuous as directed [Active]; pantoprazole 40 mg Oral TbEC 1 tab once daily [Active]; Plavix 75 mg Oral tab 1 tab once daily [Active]; - PMHx: 16:21 Anemia; Atrial Fib; CHF; COPD; Diabetes - NIDDM; Emphysema; enlarged aorta; GERD; High tw2 Cholesterol; Hypertension; Myocardial infarction; - Immunization history:: Adult Immunizations. - Social history:: Smoking status: . - Ebola Screening: : Patient denies travel to an Ebola-affected area in the 21 days before illness onset. - Family history:: not pertinent. - Hospitalizations: : No recent hospitalization is reported. ROS: 12:31 Constitutional: Negative for fever, chills, and weight loss, Eyes: Negative for injury, rn pain, redness, and discharge, Neck: Negative for injury, pain, and swelling, Cardiovascular: Negative for chest pain, edema, Respiratory: Negative for shortness of breath, cough, wheezing, and pleuritic chest pain, Abdomen/GI: Negative for abdominal pain, nausea, vomiting, diarrhea, and constipation, MS/Extremity: Negative for injury and deformity, Skin: Negative for injury, rash, and discoloration, Neuro: Negative for headache, weakness, numbness, tingling, and seizure. Exam: 12:31 Constitutional: This is a well developed, well nourished patient who is awake, alert, rn and in no acute distress. Head/Face: Normocephalic, atraumatic. ENT: MMM Cardiovascular: Regular rate and rhythm. No pulse deficits. Respiratory: Lungs have equal breath sounds bilaterally, clear to auscultation. No increased work of breathing, no retractions or nasal flaring. Abdomen/GI: soft, non-tender MS/ Extremity: Pulses equal, no cyanosis. Neurovascular intact. Full, normal range of motion. Equal circumference. Neuro: Awake and alert, GCS 15, oriented to person, place, time, and situation. Cranial nerves II-XII grossly intact. Motor strength 4/5 in all extremities. Sensory grossly intact. Cerebellar exam normal. Vital Signs: 11:44 BP 119 / 87; Pulse 53; Resp 18; Temp 97.3; Pulse Ox 100% on 2 lpm NC; Weight 57.61 kg aj1 (R); Height 5 ft. 6 in. (167.64 cm) (R); Pain 0/10; 12:00 BP 124 / 85; Pulse 71; Resp 18; Pulse Ox 100% on 2 lpm NC; aj1 12:30 BP 136 / 87; Pulse 82; Resp 18; Pulse Ox 100% on 2 lpm NC; aj1 13:00 BP 137 / 84; Pulse 74; Resp 18; Pulse Ox 100% on 2 lpm NC; aj1 13:30 BP 138 / 88; Pulse 67; Resp 18; Pulse Ox 100% on 2 lpm NC; aj1 14:00 BP 142 / 81; Pulse 73; Resp 16; Pulse Ox 100% on 2 lpm NC; aj1 14:30 BP 145 / 81; Pulse 71; Resp 18; Pulse Ox 100% on 2 lpm NC; aj1 15:29 BP 145 / 90; Pulse 73; Resp 17; Pulse Ox 98% on R/A; tw2 16:20 BP 138 / 93; Pulse 85; Resp 16; Pulse Ox 100% on R/A; tw2 17:23 BP 130 / 86; Pulse 90; Resp 18; Pulse Ox 97% on 2 lpm NC; aj1 18:30 BP 120 / 74; Pulse 86; Resp 17; Pulse Ox 100% on R/A; tw2 11:44 Body Mass Index 20.50 (57.61 kg, 167.64 cm) aj1 MDM: 11:46 Patient medically screened. rn 15:31 Differential diagnosis: arrythmia, dehydration, stress disorder. Data reviewed: vital rn signs, nurses notes, lab test result(s), EKG, radiologic studies, plain films, and as a result, I will. 15:36 Counseling: I had a detailed discussion with the patient and/or guardian regarding: the rn historical points, exam findings, and any diagnostic results supporting the discharge/admit diagnosis, lab results, radiology results, the need for outpatient follow up, to return to the emergency department if symptoms worsen or persist or if there are any questions or concerns that arise at home. ED course: RN spoke with [facility] and copy center specialist office, gel packs have been ordered but [facility] states life vest and equipment is ready to use even without gel packs. We are conferring with our cardiac rehab to ensure this patient's safe discharge home.. 16:45 ED course: Patient with wrong order from copy center specialist to replace gel and lifevest, per maurice Merino, period has , will need a new order and to be fitted again, family uneasy about taking her home at this point without full equipment, will admit overnight for issues to be worked out and to remain on monitor. . 01/01 15:32 Order name: CBC with Automated Diff; Complete Time: 15:36 EDMS 01/01 15:32 Order name: Basic Metabolic Panel; Complete Time: 15:36 EDMS 01/01 15:32 Order name: Troponin (Emerg Dept Use Only); Complete Time: 15:36 EDMS 01/01 15:32 Order name: Magnesium; Complete Time: 15:36 EDMS 01/01 15:32 Order name: Digoxin Level; Complete Time: 15:36 EDMS 01/01 16:09 Order name: Chest Single View EDMS 01/01 13:31 Order name: EKG; Complete Time: 15:33 rn 01/01 13:57 Order name: Diet Ada 2000 Duy; Complete Time: 15:33 tw2 01/01 16:09 Order name: EKG Electrocardiogram EDMS 01/01 17:04 Order name: Heart Healthy EDMS Administered Medications: 13:55 Drug: NS 0.9% 500 ml Route: IV; Rate: bolus; Site: PICC; tw2 14:35 Follow up: Response: No adverse reaction; IV Status: Completed infusion; IV Intake: tw2 500ml Disposition: 01/01/19 16:48 Hospitalization ordered by Leni Youssef for Observation. Preliminary diagnosis are Tachycardia, unspecified, Complication of external defibrillator. - Bed requested for Intensive Care Unit. - Status is Observation. aj1 - Condition is Stable. - Problem is new. - Symptoms have improved. UTI on Admission? No Signatures: Dispatcher [employer] EDWV Nellie Medel RN RN aj1 Rebecca Sheehan RN RN dw Ramez Sanchez MD MD rn Wise, Tara, RN RN tw2 Corrections: (The following items were deleted from the chart) 17:48 16:48 Hospitalization Ordered by Leni Youssef MD for Observation. Preliminary diagnosis dw is Tachycardia, unspecified; Complication of external defibrillator. Bed requested for Telemetry/MedSurg (observation). Status is Observation. Condition is Stable. Problem is new. Symptoms have improved. UTI on Admission? No. rn 18:50 17:48 01/01/2019 16:48 Hospitalization Ordered by Leni Youssef MD for Observation. aj1 Preliminary diagnosis is Tachycardia, unspecified; Complication of external defibrillator. Bed requested for Intensive Care Unit. Status is Observation. Condition is Stable. Problem is new. Symptoms have improved. UTI on Admission? No. dw
--- NOTE | 2019-01-01 17:35 | ER ---
Nurse's Notes [facility] Name: Christa Ayala Age: 73 yrs Sex: Female : 1945 Arrival Date: 01/01/2019 Time: 11:41 Bed 5 Private MD: Diagnosis: Tachycardia, unspecified;Complication of external defibrillator Presentation: 01/01 11:42 Presenting complaint: EMS states: At 0430 this morning her external defibrillator aj1 detected a rapid heart rate and released the gel pads. The patient deactivated it before the shock was administered. Patient had removed external defibrillator prior to being transported to the emergency room. Patient reports feeling well at this time. Denies chest pain, denies shortness of breath. Transition of care: patient was not received from another setting of care. Onset of symptoms was January 01, 2019 at 04:30. Risk Assessment: Do you want to hurt yourself or someone else? Patient reports no desire to harm self or others. Initial Sepsis Screen: Does the patient meet any 2 criteria? No. Patient's initial sepsis screen is negative. Does the patient have a suspected source of infection? No. Patient's initial sepsis screen is negative. Care prior to arrival: None. 11:42 Method Of Arrival: EMS: [facility] aj1 11:42 Acuity: SONYA 2 aj1 11:44 Note Patient allergies: Codeine and Iodine. Note Medical History: COPD, pt wears home aj1 O2 \T\2L nc, A-Fib, HTN, DM, CHF, hyperlipidemia PICC to left upper arm. Note Home medications: ASA 81 mg PO daily, atorvastatin 40 mg PO daily, bumetanide 1 mg PO three times a week, carvedilol 6.25 mg PO BID, clopidogrel 75mg PO daily, digoxin 0.125 mg PO daily, docusate 100 mg PO as needed, escitalopram oxalate 10 mg PO daily, glimepiride 1 mg PO BID, isosorbide 30 mg PO daily, metformin 1000 mg PO BID, milrinone 24 mcg/min IV infusion, pantoprazole 40 mg PO daily, KCL 20 mEq PO daily, sacubitril-valsartan 24-26 mg PO BID, spironolactone 12.5 mg PO daily. Triage Assessment: 11:44 General: Appears in no apparent distress. comfortable, Behavior is calm, cooperative, aj1 appropriate for age. Pain: Denies pain. Historical: - Allergies: 16:21 Codeine; tw2 16:21 Demerol; tw2 16:21 Iodine; tw2 - Home Meds: 16:21 acetaminophen 325 mg Oral tab 1 -2 tabs every 4-6 hours for Pain [Active]; aspirin 81 tw2 mg Oral TbEC 1 tab once daily [Active]; atorvastatin 40 mg Oral tab 1 tab nightly [Active]; bumetanide 1 mg Oral tab 1 tab 2 times per day [Active]; carvedilol 6.25 mg Oral tab 1 tab 2 times per day [Active]; digoxin 125 mcg Oral tab 1 tab once daily [Active]; escitalopram oxalate 10 mg Oral tab 1 tab once daily [Active]; glimepiride 1 mg Oral tab 1 tab once daily [Active]; isosorbide mononitrate 30 mg Oral Tb24 1 tab once daily [Active]; metformin 1,000 mg Oral tab 1 tab 2 times per day [Active]; milrinone 400 mcg/ml intravenous continuous as directed [Active]; pantoprazole 40 mg Oral TbEC 1 tab once daily [Active]; Plavix 75 mg Oral tab 1 tab once daily [Active]; - PMHx: 16:21 Anemia; Atrial Fib; CHF; COPD; Diabetes - NIDDM; Emphysema; enlarged aorta; GERD; High tw2 Cholesterol; Hypertension; Myocardial infarction; - Immunization history:: Adult Immunizations. - Social history:: Smoking status: . - Ebola Screening: : Patient denies travel to an Ebola-affected area in the 21 days before illness onset. - Family history:: not pertinent. - Hospitalizations: : No recent hospitalization is reported. Screenin:50 Abuse screen: Denies threats or abuse. Nutritional screening: No deficits noted. tw2 Tuberculosis screening: No symptoms or risk factors identified. Fall Risk Secondary diagnosis (15 points) impaired mobility. Assessment: 11:52 General: Appears in no apparent distress. comfortable, Behavior is calm, cooperative, aj1 appropriate for age. Pain: Denies pain. Neuro: Level of Consciousness is awake, alert, obeys commands. Cardiovascular: Denies chest pain, palpitations, Heart tones S1 S2 present Patient's skin is warm and dry. Respiratory: Airway is patent Respiratory effort is even, unlabored, Respiratory pattern is regular, symmetrical. GI: No signs and/or symptoms were reported involving the gastrointestinal system. : No signs and/or symptoms were reported regarding the genitourinary system. EENT: No signs and/or symptoms were reported regarding the EENT system. Derm: No signs and/or symptoms reported regarding the dermatologic system. Skin is normal. Musculoskeletal: No signs and/or symptoms reported regarding the musculoskeletal system. Circulation, motion, and sensation intact. 12:10 Reassessment: Patient is unsure of what the company for her LifeVest is, she is also aj1 unsure who her home health provider is. Attempted to speak with staff at Dr. Stevens's office, no answer at this time, left a message to please call back. 12:11 Reassessment: CXR at bedside. aj1 12:20 Reassessment: Spoke with staff at [facility], states that patient uses aj1 [employer] telephone # [phone]. 12:30 Reassessment: Spoke with Nuria from [employer], states that when patient's LifeVest went off aj1 the patient's heart rate was 181, she is unable to tell me if it was VT or SVT, she will fax with EKG strips to our facility. 13:23 Reassessment: Patient appears in no apparent distress at this time. No changes from aj1 previously documented assessment. Patient and/or family updated on plan of care and expected duration. Pain level reassessed. Patient is alert, oriented x 3, equal unlabored respirations, skin warm/dry/pink. 14:32 Reassessment: Patient appears in no apparent distress at this time. No changes from aj1 previously documented assessment. Patient and/or family updated on plan of care and expected duration. Pain level reassessed. Patient is alert, oriented x 3, equal unlabored respirations, skin warm/dry/pink. 15:26 Reassessment: Spoke with Irma from [employer], who states that they are waiting for the aj1 patient's account to be re-activated, states that this process can sometimes take until the next day. States the patient is able to wear the LiftVest as it is, it just won't have the protective gel if a treatment is indicated by the vest. 15:29 Reassessment: Patient appears in no apparent distress at this time. No changes from tw2 previously documented assessment. Patient and/or family updated on plan of care and expected duration. Pain level reassessed. Patient is alert, oriented x 3, equal unlabored respirations, skin warm/dry/pink. 15:45 Reassessment: Spoke with Amarilys from Dr. Levy's office ([facility]) aj1 to verify that patient can go home with current unit. Was advised to follow recommendations from [employer] at this time. 16:04 Reassessment: Spoke with patient's daughter who states that she is uncomfortable with aj1 the patient going home with the current unit. Explained to patient that I had spoken to both Wilber and Dr. Levy's office, who okayed this plan. Patient and her family remain uncomfortable, patient's daughter states that she is worried that if her mom needs a treatment from the device it will burn her. States that she doesn't want her mom to be admitted if it isn't medically necessary, but she does not want her to go home with the old unit either. Patient's daughter was asked which option she would prefer, states that she will call [employer] to see if she can get them to come out today. Will continue to monitor. 16:20 Reassessment: Patient appears in no apparent distress at this time. No changes from tw2 previously documented assessment. 17:23 Reassessment: Patient appears in no apparent distress at this time. No changes from aj1 previously documented assessment. Patient and/or family updated on plan of care and expected duration. Pain level reassessed. Patient is alert, oriented x 3, equal unlabored respirations, skin warm/dry/pink. 18:30 Reassessment: Patient appears in no apparent distress at this time. No changes from aj1 previously documented assessment. Patient and/or family updated on plan of care and expected duration. Pain level reassessed. Patient is alert, oriented x 3, equal unlabored respirations, skin warm/dry/pink. Vital Signs: 11:44 BP 119 / 87; Pulse 53; Resp 18; Temp 97.3; Pulse Ox 100% on 2 lpm NC; Weight 57.61 kg aj1 (R); Height 5 ft. 6 in. (167.64 cm) (R); Pain 0/10; 12:00 BP 124 / 85; Pulse 71; Resp 18; Pulse Ox 100% on 2 lpm NC; aj1 12:30 BP 136 / 87; Pulse 82; Resp 18; Pulse Ox 100% on 2 lpm NC; aj1 13:00 BP 137 / 84; Pulse 74; Resp 18; Pulse Ox 100% on 2 lpm NC; aj1 13:30 BP 138 / 88; Pulse 67; Resp 18; Pulse Ox 100% on 2 lpm NC; aj1 14:00 BP 142 / 81; Pulse 73; Resp 16; Pulse Ox 100% on 2 lpm NC; aj1 14:30 BP 145 / 81; Pulse 71; Resp 18; Pulse Ox 100% on 2 lpm NC; aj1 15:29 BP 145 / 90; Pulse 73; Resp 17; Pulse Ox 98% on R/A; tw2 16:20 BP 138 / 93; Pulse 85; Resp 16; Pulse Ox 100% on R/A; tw2 17:23 BP 130 / 86; Pulse 90; Resp 18; Pulse Ox 97% on 2 lpm NC; aj1 18:30 BP 120 / 74; Pulse 86; Resp 17; Pulse Ox 100% on R/A; tw2 11:44 Body Mass Index 20.50 (57.61 kg, 167.64 cm) aj1 ED Course: 11:41 Patient arrived in ED. aj1 11:44 Triage completed. aj1 11:44 Arm band placed on. aj1 11:46 Ramez Sanchez MD is Attending Physician. rn 11:52 Patient has correct armband on for positive identification. Bed in low position. Call aj1 light in reach. Side rails up X 1. surveillance system monitor on. Pulse ox on. NIBP on. 11:52 No provider procedures requiring assistance completed. aj1 11:54 Nellie Medel, RN is Primary Nurse. aj1 12:11 EKG done. aj1 12:40 Initial lab(s) drawn, by me, sent to lab. aj1 12:40 Accessed PICC line. Clean \T\ dry. Dressing intact. Good blood return. Flushes easily. aj1 16:09 Chest Single View In Process Unspecified. EDMS 16:46 Leni Youssef MD is Hospitalizing Provider. rn 18:35 pt has PICC line to RIGHT upper arm that remains in place upon admission. tw2 18:50 Report given to PAULA Licona in ICU. aj1 Administered Medications: 13:55 Drug: NS 0.9% 500 ml Route: IV; Rate: bolus; Site: PICC; tw2 14:35 Follow up: Response: No adverse reaction; IV Status: Completed infusion; IV Intake: tw2 500ml Intake: 14:35 IV: 500ml; Total: 500ml. tw2 Outcome: 16:48 Decision to Hospitalize by Provider. rn 18:35 Admitted to ICU accompanied by nurse, via stretcher, room 3, on monitor, with chart, tw2 Report called to ICU 18:35 Condition: stable 18:50 Patient left the ED. aj1 Signatures: Dispatcher [employer] EDNellie Allen RN RN aj1 Ramez Sanchez MD MD rn Wise, Tara, RN RN tw2 Corrections: (The following items were deleted from the chart) 14:34 13:00 BP 137 / 84; Pulse 74bpm; Resp 18bpm; Pulse Ox 100% RA; aj1 aj1
--- NOTE | 2019-01-01 18:31 | P.HP ---
Patient History Date of Service: 01/01/19 History of Present Illness: This is a 73-year-old female with multiple medical problems, who also wears a life vest presents to the emergency room after an episode of heart racing. Per EMS report, patient was asleep around 430 this morning, the external defibrillator went off, and Bystolic. Patient was not aware of these events and does not recall for shock was administered or not. Family and home health company spoke with the device company he reported heart rate was in the 180s, unclear rhythm. It seems that patient may have gone into V-tach? But unsure for shock was delivered. Patient was brought to the ER by the EMS. In the ER, patient was hemodynamically stable, symptom-free and doing well. Phone call was made to patient's [employer] office as well as the [employer] that provides life rest. Patient needs refill on some equipment for the life vest, for which she needs to be fitted again. Unfortunately, the company is unable to come out to refill the rest in the patient home today. Therefore she will be admitted to the hospital for monitoring in the ICU until [employer] folks are able to come out and help Ms. Ayala with the equipment that she needs. Allergies iodine Allergy (Mild, Verified 06/03/18 18:17) Itching/Hives/Rash codeine Adverse Reaction (Intermediate, Verified 06/03/18 18:17) Hives/Rash Home medications list reviewed: Yes Home Medications: Acetaminophen [Tylenol] 650 mg PO Q6H PRN 08/24/18 Aspirin [Aspirin EC 81 MG] 81 mg PO DAILY 08/24/18 Atorvastatin Calcium 40 mg PO DAILY 08/24/18 Bumetanide [Bumex*] 1 mg PO BID 08/24/18 Carvedilol [Coreg*] 6.25 mg PO BID 08/24/18 Clopidogrel Bisulfate [Plavix*] 75 mg PO DAILY 08/24/18 Digoxin [Lanoxin*] 0.125 mg PO DAILY 08/24/18 Escitalopram [Lexapro*] 10 mg PO DAILY 08/24/18 Isosorbide Mononitrate [Isosorbide Mononitrate ER] 30 mg PO DAILY 08/24/18 Metformin HCl 1,000 mg PO BIDWM 08/24/18 Pantoprazole [Protonix Tab*] 40 mg PO DAILY 08/24/18 Docusate Sodium 100 mg PO DAILY PRN 12/21/18 Glimepiride 1 mg PO BID 12/21/18 Milrinone Lact/D5w [Milrinone 20 MG/100 ML IVPB (PREMIX)] 24 mcg IV CONT Sacubitril/Valsartan [Entresto 24 mg-26 mg Tablet] 1 tab PO BID 12/21/18 - Past Medical/Surgical History Diabetic: Yes -: HTN -: Hyperlipidemia -: Diabetes mellitus type 2 [id number] -: COPD, oxygen-dependent 2L NC -: CAD with prior stent -: Systolic congestive heart failure, ejection fraction 30% -: Thoracic aortic aneurysm -: Chronic kidney disease -: Anemia of chronic disease -: GERD -: Former tobacco use -: atrial fibrillation -: Hiatal hernia repair -: Aortic aneurysm -: 2 cardiac stents (2010) Psychosocial/ Personal History: Patient is - Family History Father -: Heart disease Mother -: Diabetes Sister -: Diabetes - Social History Alcohol use: No CD- Drugs: No Caffeine use: Yes Review of Systems 10-point ROS is otherwise unremarkable Physical Examination - Physical Exam General: Alert, In no apparent distress HEENT: Atraumatic, PERRLA, Mucous membr. moist/pink, EOMI, Sclerae nonicteric Neck: Supple, 2+ carotid pulse no bruit, No LAD, Without JVD or thyroid abnormality Respiratory: Clear to auscultation bilaterally, Normal air movement Cardiovascular: Regular rate/rhythm, Normal S1 S2 Gastrointestinal: Normal bowel sounds, No tenderness Musculoskeletal: No tenderness Integumentary: No rashes Neurological: Normal gait, Normal speech, Normal strength at 5/5 x4 extr, Normal tone, Normal affect Lymphatics: No axilla or inguinal lymphadenopathy - Studies Laboratory Data (last 24 hrs) 01/01/19 12:40: Sodium 140, Potassium 4.0, BUN 28 H, Creatinine 1.42 H, Glucose 114 H, Magnesium 2.5 H 01/01/19 12:40: WBC 5.8, Hgb 8.4 L, Hct 24.2 L, Plt Count 294 Assessment and Plan - Problems (Diagnosis) (1) Uses wearable garment containing external defibrillator with attached monitor Current Visit: Yes Status: Acute (2) Shockable cardiac rhythm detected by automated external defibrillator Current Visit: Yes Status: Acute (3) CAD (coronary artery disease) Onset Date: 04/25/17 Current Visit: No Status: Chronic Qualifiers: (4) CHF (congestive heart failure) Onset Date: 04/25/17 Current Visit: No Status: Chronic Qualifiers: (5) COPD (chronic obstructive pulmonary disease) Onset Date: 10/03/17 Current Visit: No Status: Chronic Qualifiers: (6) Chronic renal disease, stage III Onset Date: 02/13/18 Current Visit: No Status: Chronic (7) Diabetes mellitus type 2 Onset Date: 04/25/17 Current Visit: No Status: Chronic (8) Hyperlipidemia Onset Date: 10/03/17 Current Visit: No Status: Chronic Qualifiers: (9) Hypertensive disorder, systemic arterial Onset Date: 04/25/17 Current Visit: No Status: Chronic - Plan Admit patient to the ICU for monitoring. Continue to monitor vital signs. Will restart home medications as tolerated. Will continue home milrinone drip Will await the [facility] to come and bring patient echo given that she needs further life vest to go home. She will be able to discharge home once we have the equipment that she requires. - Advance Directives Does patient have a Living Will: No Does patient have a Durable POA for Healthcare: No
[2019-01-01 20:40] VITALS: BMI 24.0
[2019-01-02 05:17] LABS: Absolute Lymphocytes (CBC) 0.9 K/uL (0.7-4.9); Basophils % 1.2 % (0-1.3); Hematocrit 23.8 % (36.0-45.0); Lymphocytes % 15.7 % (15.3-44.8); MPV 7.8 fL (7.6-11.3); RBC Red Blood Cell Count 2.39 M/uL (3.86-4.86)
[2019-01-02 05:35] LABS: Albumin 3.4 g/dL (3.4-5.0); Bilirubin Total 0.4 mg/dL (0.2-1.0); Magnesium 2.4 mg/dL (1.8-2.4); Phosphorus 4.4 mg/dL (2.5-4.9); Potassium 4.3 mmol/L (3.5-5.1); Protein, Total 7.2 g/dL (6.4-8.2)
--- NOTE | 2019-01-02 07:28 | EKG ---
Test Date: 2019-01-01 Test Time: 12:51:59 Vibration Technician: HAMMAD MEASUREMENT RESULTS: Intervals: Rate: 65 CT: 166 QRSD: 92 QT: 390 QTc: 405 [place]: P: 29 CT: 166 QRS: 25 T: -70 INTERPRETIVE STATEMENTS: Normal sinus rhythm with sinus arrhythmia ST & T wave abnormality, consider lateral ischemia Abnormal ECG Compared to ECG 12/24/2018 13:57:36 Myocardial infarct finding no longer present ST (T wave) deviation still present Possible ischemia still present Electronically Signed On 01-02-19 07:27:35 CDT by John Foster
[2019-01-02] MEDS ORDERED: ACETAMINOPHEN 325 MG TABLET PO PRN (13:58)
[2019-01-02] MEDS ORDERED: DOCUSATE NA 100 MG CAP PO PRN (13:58)
[2019-01-02] MEDS ORDERED: MILRINONE 20 MG/100 ML IV SCH (14:00)
--- NOTE | 2019-01-02 15:49 | RAD REPORT ---
EXAM DESCRIPTION: RAD CHEST SINGLE VIEW CLINICAL HISTORY: Chest pain COMPARISON: Portable chest December 24, 2018 and December 21, 2018 TECHNIQUE: Portable imaging of the chest performed 1218 hours FINDINGS: External defibrillator has been removed for this examination. A right side PICC line remains in place. The patient is rotated which distorts the cardiomediastinal silhouette. The lung gil are clear. No pulmonary edema or acute lung parenchyma process is seen. The patient has an enlarged cardiomediastinal silhouette. The patient has descending thoracic aortic stenting. There is aneurysmal dilatation at the thoracic abdominal junction of the aorta. Tortuosity of the vasculature and cardiomegaly are present all accentuated by the rotation. Acute change to the aorta and mediastinum is doubtful. No pneumothorax or pleural effusion. IMPRESSION: 1. No acute lung parenchymal process. 2. Cardiomegaly, aortic aneurysmal dilatation and aortic stenting findings are all stable. Mediastinum is widened by patient rotation.
[2019-01-02] MEDS ORDERED: GLIMEPIRIDE 2 MG TABLET PO SCH (17:00)
[2019-01-02] MEDS ORDERED: METFORMIN HCL 500 MG TAB PO SCH (17:00)
--- NOTE | 2019-01-02 18:40 | PN ---
Date of Progress Note: 01/02/2019 Patient is resting comfortably in bed. She states she feels fine. Appetite is good. She has no sig nificant complaints. Awaiting evaluation, which should be here sometime during the day. Once that is clarified, she can either be transferred to floor care or discharged. HR/MODL Voice ID: [id number] Report ID: [id number]
[2019-01-02 18:43] VITALS: TEMP 98.8
[2019-01-02 20:28] VITALS: BP 132/79
[2019-01-02] MEDS ORDERED: BUMETANIDE 1 MG TABLET PO SCH (21:00)
[2019-01-02] MEDS ORDERED: SACUBITRIL/VALSARTAN 24/26 MG TAB PO SCH (21:00)
[2019-01-02] MEDS ORDERED: ATORVASTATIN 40 MG TAB PO SCH (21:00)
[2019-01-02] MEDS ORDERED: CARVEDILOL 6.25 MG TAB PO SCH (21:00)
[2019-01-02 22:27] VITALS: O2SAT 99
[2019-01-03] MEDS ORDERED: ISOSORBIDE MONO SR 30 MG TAB PO SCH (09:00)
[2019-01-03] MEDS ORDERED: ESCITALOPRAM 20 MG TAB PO SCH (09:00)
[2019-01-03] MEDS ORDERED: ASPIRIN EC 81 MG TAB PO SCH (09:00)
[2019-01-03] MEDS ORDERED: PANTOPRAZOLE 40MG TABLET PO SCH (09:00)
[2019-01-03] MEDS ORDERED: DIGOXIN 0.125 MG TABLET PO SCH (09:00)
[2019-01-03] MEDS ORDERED: CLOPIDOGREL 75 MG TABLET PO SCH (09:00)
== END 2019-01-02 20:30 | disposition home health service (06) | DRG 309 ==
LOC: ER 11:26 → ERHOLD 17:44 → 3RD-ICU 18:18
PROVIDERS: ADMIT Family Medicine; ATTEND Family Medicine
DX: I47.2 Ventricular tachycardia (principal); T82.118A Breakdown (mechanical) of other cardiac electronic device, initial encounter; I50.22 Chronic systolic (congestive) heart failure; I13.0 Hypertensive heart and chronic kidney disease with heart failure and stage 1 through stage 4 chronic kidney disease, or unspecified chronic kidney disease; I25.10 Atherosclerotic heart disease of native coronary artery without angina pectoris; J44.9 Chronic obstructive pulmonary disease, unspecified; N18.3 Chronic kidney disease, stage 3 (moderate); E11.22 Type 2 diabetes mellitus with diabetic chronic kidney disease; E78.5 Hyperlipidemia, unspecified; Z99.81 Dependence on supplemental oxygen
CPT/HCPCS: 36415; 71045; 80048; 80053; 80162; 82962; 83735; 84100; 84484; 85025; 93005; 96360; 99285

== ENCOUNTER 2019-01-15 10:49 | Inpatient (IN) | payer OTHER ==
[2019-01-15 11:37] LABS: Absolute Lymphocytes (CBC) 0.6 K/uL (0.7-4.9); Hematocrit 25.6 % (36.0-45.0); Lymphocytes % 11.9 % (15.3-44.8); MPV 7.9 fL (7.6-11.3); RBC Red Blood Cell Count 2.57 M/uL (3.86-4.86)
[2019-01-15 12:01] LABS: Protime INR 1.04
[2019-01-15 12:07] LABS: ALT/SGPT 15 U/L (12-78); AST/SGOT 13 U/L (15-37); Albumin 3.5 g/dL (3.4-5.0); Alkaline Phosphatase 45 U/L (45-117); BUN Blood Urea Nitrogen 49 mg/dL (7-18); Bicarbonate 30 mmol/L (21-32); Bilirubin Direct 0.1 mg/dL (0-0.2); Bilirubin Total 0.3 mg/dL (0.2-1.0); Glucose Level 191 mg/dL (74-106); Magnesium 2.6 mg/dL (1.8-2.4); NT PRO-BNP 6079 pg/mL (<125); Potassium 4.7 mmol/L (3.5-5.1); Protein, Total 7.7 g/dL (6.4-8.2); Sodium Level 138 mmol/L (136-145); Troponin (Emerg Dept Use Only) < 0.02 ng/mL (0.0-0.045)
--- NOTE | 2019-01-15 12:12 | RAD REPORT ---
EXAM DESCRIPTION: RAD - Chest Single View - 01/15/2019 11:59 am CLINICAL HISTORY: CONGESTION Chest pain. COMPARISON: Chest Single View dated 01/01/2019; Chest Single View dated 12/24/2018; Chest Single View dated 12/21/2018; Chest Single View dated 08/24/2018 FINDINGS: Portable technique limits examination quality. The lungs are grossly clear. The heart is significantly enlarged with a tortuous thoracic aorta, with aortic stent graft in place. Several left-sided monitoring device is noted.Right-sided PICC line has tip in the SVC.
[2019-01-15] MEDS ORDERED: NA CHLORIDE 0.9% 500 ML ONE (12:37)
--- NOTE | 2019-01-15 12:38 | EDPHYS ---
Physician Documentation [facility] Name: Christa Ayala Age: 73 yrs Sex: Female : 1945 Arrival Date: 01/15/2019 Time: 10:55 Bed 24 Private MD: ED Physician Quirino Zhu HPI: 01/15 10:57 This 73 yrs old Black Female presents to ER via Unassigned with complaints of ma2 lightheaded. 10:57 Onset: The symptoms/episode began/occurred gradually, 1 hour(s) ago. Severity of ma2 symptoms: At their worst the symptoms were mild in the emergency department the symptoms are unchanged. The patient has not experienced similar symptoms in the past, The patient has experienced similar episodes in the past. Historical: - Allergies: 11:09 Codeine; aj1 11:09 Demerol; aj1 11:09 Iodine; aj1 - Home Meds: 11:09 acetaminophen 325 mg Oral tab 1 -2 tabs every 4-6 hours for Pain [Active]; aspirin 81 aj1 mg Oral TbEC 1 tab once daily [Active]; atorvastatin 40 mg Oral tab 1 tab nightly [Active]; bumetanide 1 mg Oral tab 1 tab 2 times per day [Active]; carvedilol 6.25 mg Oral tab 1 tab 2 times per day [Active]; digoxin 125 mcg Oral tab 1 tab once daily [Active]; escitalopram oxalate 10 mg Oral tab 1 tab once daily [Active]; glimepiride 1 mg Oral tab 1 tab once daily [Active]; isosorbide mononitrate 30 mg Oral Tb24 1 tab once daily [Active]; metformin 1,000 mg Oral tab 1 tab 2 times per day [Active]; milrinone 400 mcg/ml intravenous continuous as directed [Active]; pantoprazole 40 mg Oral TbEC 1 tab once daily [Active]; Plavix 75 mg Oral tab 1 tab once daily [Active]; - PMHx: 11:09 Anemia; Atrial Fib; CHF; COPD; Diabetes - NIDDM; Emphysema; enlarged aorta; GERD; High aj1 Cholesterol; Hypertension; Myocardial infarction; - Immunization history:: Adult Immunizations up to date. - Social history:: Patient uses Patient/guardian denies using alcohol, street drugs, The patient lives with family, Smoking status: Patient/guardian denies using tobacco. - Family history:: not pertinent. - Ebola Screening: : Patient denies travel to an Ebola-affected area in the 21 days before illness onset. ROS: 10:57 Constitutional: Negative for fever, chills, and weight loss, Eyes: Negative for injury, ma2 pain, redness, and discharge, Cardiovascular: Negative for chest pain, palpitations, and edema, Respiratory: Negative for shortness of breath, cough, wheezing, and pleuritic chest pain, Abdomen/GI: Negative for abdominal pain, nausea, diarrhea, and constipation. 10:57 All other systems are negative. Exam: 10:57 Constitutional: This is a well developed, well nourished patient who is awake, alert, ma2 and in no acute distress. Head/Face: Normocephalic, atraumatic. Eyes: Pupils equal round and reactive to light, extra-ocular motions intact. Lids and lashes normal. Conjunctiva and sclera are non-icteric and not injected. Cornea within normal limits. Periorbital areas with no swelling, redness, or edema. ENT: Nares patent. No nasal discharge, no septal abnormalities noted. Tympanic membranes are normal and external auditory canals are clear. Oropharynx with no redness, swelling, or masses, exudates, or evidence of obstruction, uvula midline. Mucous membranes moist. Neck: Trachea midline, no thyromegaly or masses palpated, and no cervical lymphadenopathy. Supple, full range of motion without nuchal rigidity, or vertebral point tenderness. No Meningismus. Chest/axilla: Normal chest wall appearance and motion. Nontender with no deformity. No lesions are appreciated. Cardiovascular: Regular rate and rhythm with a normal S1 and S2. No gallops, murmurs, or rubs. Normal PMI, no JVD. No pulse deficits. Respiratory: Lungs have equal breath sounds bilaterally, clear to auscultation and percussion. No rales, rhonchi or wheezes noted. No increased work of breathing, no retractions or nasal flaring. Abdomen/GI: Soft, non-tender, with normal bowel sounds. No distension or tympany. No guarding or rebound. No evidence of tenderness throughout. Back: No spinal tenderness. No costovertebral tenderness. Full range of motion. Skin: Warm, dry with normal turgor. Normal color with no rashes, no lesions, and no evidence of cellulitis. MS/ Extremity: Pulses equal, no cyanosis. Neurovascular intact. Full, normal range of motion. Neuro: Awake and alert, GCS 15, oriented to person, place, time, and situation. Cranial nerves II-XII grossly intact. Motor strength 5/5 in all extremities. Sensory grossly intact. Cerebellar exam normal. Normal gait. Vital Signs: 11:09 BP 110 / 72; Pulse 63; Resp 18; Temp 97.6; Pulse Ox 100% on R/A; Weight 53.07 kg (R); aj1 Height 5 ft. 6 in. (167.64 cm) (R); Pain 0/10; 12:00 BP 122 / 79; Pulse 60; Resp 18; Pulse Ox 97% on 2 lpm NC; aj1 13:00 BP 126 / 73; Pulse 62; Resp 20; Pulse Ox 97% on 2 lpm NC; aj1 14:00 BP 114 / 65; Pulse 73; Resp 20; Pulse Ox 95% on 2 lpm NC; aj1 14:30 BP 124 / 69; Pulse 74; Resp 18; Pulse Ox 95% on 2 lpm NC; aj1 11:09 Body Mass Index 18.88 (53.07 kg, 167.64 cm) [facility] MDM: 10:56 Patient medically screened. [facility] 10:57 Differential Diagnosis dehydration, javier vs electrolyte distrubanc e. [facility] 12:33 Data reviewed: vital signs, nurses notes. Counseling: I had a detailed discussion with nj2 the patient and/or guardian regarding: the historical points, exam findings, and any diagnostic results supporting the discharge/admit diagnosis, the need for further work-up and treatment in the hospital. Response to treatment: the patient's symptoms have markedly improved after treatment. 12:35 ED course: has javier, being on melrenon drip need to admit to icu, likely dehydration as ma2 this is orthostatic LH, no medication has been changed since 2 wks, discussed with dr. sher who recommend admission and consult nephro . 01/15 10:57 Order name: Basic Metabolic Panel; Complete Time: 12:27 nj2 01/15 10:57 Order name: CBC with Diff; Complete Time: 11:43 [facility] 01/15 10:57 Order name: LFT's; Complete Time: 12:27 ma2 01/15 10:57 Order name: Magnesium; Complete Time: 12:27 ma2 01/15 10:57 Order name: NT PRO-BNP; Complete Time: 12:27 ma2 01/15 10:57 Order name: PT-INR; Complete Time: 12:27 ma2 01/15 10:57 Order name: Troponin (emerg Dept Use Only); Complete Time: 12:27 ma2 01/15 10:57 Order name: XRAY Chest (1 view); Complete Time: 12:27 ma2 01/15 10:57 Order name: EKG; Complete Time: 10:58 ma2 01/15 12:43 Order name: Basic Metabolic Panel EDMS 01/15 12:43 Order name: Basic Metabolic Panel EDMS 01/15 12:43 Order name: CBC with Automated Diff EDMS 01/15 12:43 Order name: CBC with Automated Diff EDMS 01/15 10:57 Order name: Cardiac monitoring; Complete Time: 11:14 ma2 01/15 10:57 Order name: EKG - Nurse/Tech; Complete Time: 11:14 ma2 01/15 10:57 Order name: IV Saline Lock; Complete Time: 11:20 ma2 01/15 10:57 Order name: Labs collected and sent; Complete Time: 11:20 ma2 01/15 10:57 Order name: O2 Per Protocol; Complete Time: 11:14 ma2 01/15 10:57 Order name: O2 Sat Monitoring; Complete Time: 11:14 ma2 01/15 12:43 Order name: Consistent Carb (ADA) 1800 Duy EDMS 01/15 12:43 Order name: EKG Electrocardiogram EDMS 01/15 12:43 Order name: EKG Electrocardiogram EDMS 01/15 12:43 Order name: EKG Electrocardiogram EDMS 01/15 12:43 Order name: EKG Electrocardiogram EDMS Administered Medications: 12:32 Drug: NS 0.9% 500 ml Route: IV; Rate: 1 bolus; Site: right upper arm; aj1 15:11 Follow up: Response: No adverse reaction aj1 Disposition: 01/15/19 12:36 Hospitalization ordered by Kendrick Stevens for Observation. Preliminary diagnosis are Acute kidney failure, Dehydration. - Bed requested for Intensive Care Unit. - Status is Observation. ss - Condition is Stable. - Problem is new. - Symptoms are unchanged. UTI on Admission? No Signatures: Dispatcher [employer] EDMS Yumiko Cordero Nellie Brody RN RN aj1 Yecenia Horner RN RN ss Quirino Zhu MD MD ma2 Corrections: (The following items were deleted from the chart) 13:09 12:36 Hospitalization Ordered by Kendrick Stevens MD for Observation. Preliminary bd diagnosis is Acute kidney failure; Dehydration. Bed requested for Intensive Care Unit. Status is Observation. Condition is Stable. Problem is new. Symptoms are unchanged. UTI on Admission? No. ma2 15:09 13:09 01/15/2019 12:36 Hospitalization Ordered by Kendrick Stevens MD for Observation. Preliminary diagnosis is Acute kidney failure; Dehydration. Bed requested for Intensive Care Unit. Status is Observation. Condition is Stable. Problem is new. Symptoms are unchanged. UTI on Admission? No. bd
--- NOTE | 2019-01-15 12:38 | ER ---
Nurse's Notes [facility] Name: Christa Ayala Age: 73 yrs Sex: Female : 1945 Arrival Date: 01/15/2019 Time: 10:55 Bed 24 Private MD: Diagnosis: Acute kidney failure;Dehydration Presentation: 01/15 11:03 Presenting complaint: Patient states: She was at home doing physical therapy when she aj1 started feeling dizzy, like she was going to pass out. They called EMS and EMS was unable to obtain a O2 sat so they brought the patient to ER for evaluation. O2 sat is 100% on 2L nc upon EMS arrival. Patient reports that she wears O2 \T\ 2l nc at home. Denies dizziness at this time. Transition of care: patient was not received from another setting of care. Onset of symptoms was January 15, 2019. Risk Assessment: Do you want to hurt yourself or someone else? Patient reports no desire to harm self or others. Initial Sepsis Screen: Does the patient meet any 2 criteria? No. Patient's initial sepsis screen is negative. Does the patient have a suspected source of infection? No. Patient's initial sepsis screen is negative. Care prior to arrival: None. 11:03 Method Of Arrival: EMS: [facility] aj1 11:03 Acuity: SONYA 3 aj1 Triage Assessment: 11:09 General: Appears in no apparent distress. Behavior is calm, cooperative, appropriate aj1 for age. Pain: Denies pain. Historical: - Allergies: 11:09 Codeine; aj1 11:09 Demerol; aj1 11:09 Iodine; aj1 - Home Meds: 11:09 acetaminophen 325 mg Oral tab 1 -2 tabs every 4-6 hours for Pain [Active]; aspirin 81 aj1 mg Oral TbEC 1 tab once daily [Active]; atorvastatin 40 mg Oral tab 1 tab nightly [Active]; bumetanide 1 mg Oral tab 1 tab 2 times per day [Active]; carvedilol 6.25 mg Oral tab 1 tab 2 times per day [Active]; digoxin 125 mcg Oral tab 1 tab once daily [Active]; escitalopram oxalate 10 mg Oral tab 1 tab once daily [Active]; glimepiride 1 mg Oral tab 1 tab once daily [Active]; isosorbide mononitrate 30 mg Oral Tb24 1 tab once daily [Active]; metformin 1,000 mg Oral tab 1 tab 2 times per day [Active]; milrinone 400 mcg/ml intravenous continuous as directed [Active]; pantoprazole 40 mg Oral TbEC 1 tab once daily [Active]; Plavix 75 mg Oral tab 1 tab once daily [Active]; - PMHx: 11:09 Anemia; Atrial Fib; CHF; COPD; Diabetes - NIDDM; Emphysema; enlarged aorta; GERD; High aj1 Cholesterol; Hypertension; Myocardial infarction; - Immunization history:: Adult Immunizations up to date. - Social history:: Patient uses Patient/guardian denies using alcohol, street drugs, The patient lives with family, Smoking status: Patient/guardian denies using tobacco. - Family history:: not pertinent. - Ebola Screening: : Patient denies travel to an Ebola-affected area in the 21 days before illness onset. Screenin:11 Abuse screen: Denies threats or abuse. Denies injuries from another. Nutritional aj1 screening: No deficits noted. Tuberculosis screening: No symptoms or risk factors identified. Assessment: 11:11 General: Appears in no apparent distress. uncomfortable, Behavior is calm, cooperative, aj1 appropriate for age. Pain: Denies pain. Neuro: Level of Consciousness is awake, alert, obeys commands, Oriented to person, place, time, situation, Moves all extremities. Full function Reports dizziness, that has now resolved. Cardiovascular: Heart tones S1 S2 present Patient's skin is warm and dry. Patient has a life vest in place. Rhythm is irregular. Respiratory: Airway is patent Respiratory effort is even, unlabored, Respiratory pattern is regular, symmetrical, Breath sounds are clear bilaterally. GI: No signs and/or symptoms were reported involving the gastrointestinal system. : No signs and/or symptoms were reported regarding the genitourinary system. EENT: No signs and/or symptoms were reported regarding the EENT system. Derm: No signs and/or symptoms reported regarding the dermatologic system. Skin is pink, warm \T\ dry. normal. Musculoskeletal: No signs and/or symptoms reported regarding the musculoskeletal system. Circulation, motion, and sensation intact. 12:15 Reassessment: Patient appears in no apparent distress at this time. No changes from aj1 previously documented assessment. Patient and/or family updated on plan of care and expected duration. Pain level reassessed. Patient is alert, oriented x 3, equal unlabored respirations, skin warm/dry/pink. 13:15 Reassessment: Patient and/or family updated on plan of care and expected duration. Pain aj1 level reassessed. General: Appears in no apparent distress. comfortable, Behavior is calm, cooperative, appropriate for age. Pain: Denies pain. Neuro: Level of Consciousness is awake, alert, obeys commands, Oriented to person, place, time, situation, Moves all extremities. Full function. Cardiovascular: Heart tones S1 S2 present Patient's skin is warm and dry. Rhythm is irregular. 15:08 Reassessment: Patient appears in no apparent distress at this time. No changes from aj1 previously documented assessment. Patient and/or family updated on plan of care and expected duration. Pain level reassessed. Patient is alert, oriented x 3, equal unlabored respirations, skin warm/dry/pink. Vital Signs: 11:09 BP 110 / 72; Pulse 63; Resp 18; Temp 97.6; Pulse Ox 100% on R/A; Weight 53.07 kg (R); aj1 Height 5 ft. 6 in. (167.64 cm) (R); Pain 0/10; 12:00 BP 122 / 79; Pulse 60; Resp 18; Pulse Ox 97% on 2 lpm NC; aj1 13:00 BP 126 / 73; Pulse 62; Resp 20; Pulse Ox 97% on 2 lpm NC; aj1 14:00 BP 114 / 65; Pulse 73; Resp 20; Pulse Ox 95% on 2 lpm NC; aj1 14:30 BP 124 / 69; Pulse 74; Resp 18; Pulse Ox 95% on 2 lpm NC; aj1 11:09 Body Mass Index 18.88 (53.07 kg, 167.64 cm) aj1 ED Course: 10:55 Patient arrived in ED. ss 10:56 Quirino Zhu MD is Attending Physician. ma2 11:02 Nellie Medel, PAULA is Primary Nurse. aj1 11:05 Triage completed. aj1 11:09 Arm band placed on. aj1 11:11 Patient has correct armband on for positive identification. Bed in low position. Call aj1 light in reach. Side rails up X 1. 11:11 EKG done, by cryptologic technician. reviewed by Quirino Zhu MD. at1 11:11 No provider procedures requiring assistance completed. aj1 11:33 Accessed PICC line. Blood collected. Clean \T\ dry. Dressing intact. Good blood return. aj1 Flushes easily. 11:59 XRAY Chest (1 view) In Process Unspecified. EDMS 12:36 Kendrick Stevens MD is Hospitalizing Provider. ma2 14:45 Report given to PAULA Licona in ICU. aj1 15:10 Patient admitted, IV remains in place. aj1 Administered Medications: 12:32 Drug: NS 0.9% 500 ml Route: IV; Rate: 1 bolus; Site: right upper arm; aj1 15:11 Follow up: Response: No adverse reaction aj1 Outcome: 12:36 Decision to Hospitalize by Provider. ma2 15:09 Patient left the ED. 15:12 Admitted to ICU accompanied by nurse, accompanied by tech, via stretcher, with oxygen, aj1 on monitor, with chart. 15:12 Condition: stable 15:12 Discharge instructions given to patient, family, Instructed on the need for admit, Demonstrated understanding of instructions. Signatures: Dispatcher [employer] EDMS Nellie Medel RN RN aj1 Yecenia Horner RN RN ss Tasha Moralez, rope tow operator EKG Tat1 Quirino Zhu MD MD ma2 Corrections: (The following items were deleted from the chart) 15:08 11:11 Cardiovascular: Heart tones S1 S2 present Patient's skin is warm and dry. Patient aj1 has a life vest in place. Rhythm is sinus bradycardia aj1
--- NOTE | 2019-01-15 15:52 | EKG ---
Test Date: 2019-01-15 Test Time: 11:04:33 Centrifuge Separator Tender: HAMMAD MEASUREMENT RESULTS: Intervals: Rate: 64 MT: 164 QRSD: 94 QT: 402 QTc: 414 [place]: P: 39 MT: 164 QRS: 45 T: 268 INTERPRETIVE STATEMENTS: Normal sinus rhythm ST & T wave abnormality, consider anterolateral ischemia Abnormal ECG Compared to ECG 01/01/2019 12:51:59 Sinus arrhythmia no longer present ST (T wave) deviation still present Possible ischemia still present Electronically Signed On 01-15-19 15:50:22 CDT by John Foster
--- NOTE | 2019-01-15 16:53 | P.CNS ---
Date of Consult: 01/15/19 Reason for Consult: DARRYL/ CKD Requesting Physician: Kendrick Stevens Primary Care Provider: Dr. Stevens Chief Complaint: Near-syncope History of Present Illness: 73 yo BF CHF, DM, CKD presented to the ER from home after experiencing near syncope at home while standing during PT. Associated weakness and hypoxia. Seen and examined in the ICU. Feeling better at this time. Good appetite. + UO No NSAIDs. 10:57 This 73 yrs old Black Female presents to ER via Unassigned with complaints of ma2 lightheaded. 10:57 Onset: The symptoms/episode began/occurred gradually, 1 hour(s) ago. Severity of ma2 symptoms: At their worst the symptoms were mild in the emergency department the symptoms are unchanged. The patient has not experienced similar symptoms in the past, The patient has experienced similar episodes in the past. Allergies iodine Allergy (Mild, Verified 06/03/18 18:17) Itching/Hives/Rash codeine Adverse Reaction (Intermediate, Verified 06/03/18 18:17) Hives/Rash Home medications list reviewed: Yes Home Medications: Acetaminophen [Tylenol] 650 mg PO Q6H PRN 08/24/18 Aspirin [Aspirin EC 81 MG] 81 mg PO DAILY 08/24/18 Atorvastatin Calcium 40 mg PO DAILY 08/24/18 Bumetanide [Bumex*] 1 mg PO BID 08/24/18 Carvedilol [Coreg*] 6.25 mg PO BID 08/24/18 Clopidogrel Bisulfate [Plavix*] 75 mg PO DAILY 08/24/18 Digoxin [Lanoxin*] 0.125 mg PO DAILY 08/24/18 Escitalopram [Lexapro*] 10 mg PO DAILY 08/24/18 Isosorbide Mononitrate [Isosorbide Mononitrate ER] 30 mg PO DAILY 08/24/18 Metformin HCl 1,000 mg PO BIDWM 08/24/18 Pantoprazole [Protonix Tab*] 40 mg PO DAILY 08/24/18 Docusate Sodium 100 mg PO DAILY PRN 12/21/18 Glimepiride 1 mg PO BID 12/21/18 Milrinone Lact/D5w [Milrinone 20 MG/100 ML IVPB (PREMIX)] 24 mcg IV CONT Sacubitril/Valsartan [Entresto 24 mg-26 mg Tablet] 1 tab PO BID 12/21/18 Milrinone Lact/D5w [Milrinone 20 MG/100 ML IVPB (PREMIX)*] 0 mcg IV CONT - Past Medical/Surgical History Diabetic: Yes -: HTN -: Hyperlipidemia -: Diabetes mellitus type 2 [id number] -: COPD, oxygen-dependent 2L NC -: CAD with prior stent -: Systolic congestive heart failure, ejection fraction 30% -: Thoracic aortic aneurysm -: Chronic kidney disease -: Anemia of chronic disease -: GERD -: Former tobacco use -: atrial fibrillation -: Hiatal hernia repair -: Aortic aneurysm -: 2 cardiac stents (2010) Psychosocial/ Personal History: Patient is - Family History Father Medical History: Heart disease Mother Medical History: Diabetes Sister Medical History: Diabetes - Social History Smoking Status: Unknown if ever smoked Alcohol use: No CD- Drugs: No Caffeine use: No Place of Residence: Home Review of Systems 10-point ROS is otherwise unremarkable General: Weakness Respiratory: SOB with Excertion Neurological: Weakness Physical Examination Temp Pulse Resp BP Pulse Ox 97.6 F 85 11 L 123/75 01/15/19 11:09 01/15/19 16:00 01/15/19 15:04 01/15/19 16:00 General: In no apparent distress, Oriented x3, Cooperative HEENT: Atraumatic Neck: Supple Respiratory: Clear to auscultation bilaterally Cardiovascular: No edema, Regular rate/rhythm, No rubs Gastrointestinal: Soft and benign, Non-distended Musculoskeletal: No clubbing, No contractures Integumentary: No rashes, No cyanosis Neurological: Normal speech Laboratory Data (last 24 hrs) 01/15/19 11:30: PT 12.2, INR 1.04 01/15/19 11:30: WBC 5.4, Hgb 8.7 L, Hct 25.6 L, Plt Count 268 01/15/19 11:30: Sodium 138, Potassium 4.7, BUN 49 H, Creatinine 2.15 H, Glucose 191 H, Magnesium 2.6 H, Total Bilirubin 0.3, AST 13 L, ALT 15, Alkaline Phosphatase 45 Imagings Data: EXAM DESCRIPTION: RAD - Chest Single View - 01/15/2019 11:59 am CLINICAL HISTORY: CONGESTION Chest pain. COMPARISON: Chest Single View dated 01/01/2019; Chest Single View dated 2018; Chest Single View dated 12/21/2018; Chest Single View dated 08/24/2018 FINDINGS: Portable technique limits examination quality. The lungs are grossly clear. The heart is significantly enlarged with a tortuous thoracic aorta, with aortic stent graft in place. Several left-sided monitoring device is noted.Right-sided PICC line has tip in the SVC. Conclusions/Impression: A/ DARRYL CKD III. Systolic CHF, chronic. HTN with CKD/ CHF. DM II with CKD. Anemia in chronic illness/ CKD. P/ Continue current POC and Medications. Give a dose of Procrit. Continue bumex. Restart home medications as indicated. No NSAIDs. AM labs. Daily weight. Thank you kindly for the consultation.
[2019-01-15] MEDS ORDERED: D50W 25 GM/50 ML SYRINGE IV PRN (17:04)
[2019-01-15] MEDS ORDERED: GLUCAGON 1 MG/VIAL IM PRN (17:04)
--- NOTE | 2019-01-15 17:10 | CON ---
History Of Present Illness: Ms. Ayala was sent to the hospital by home health agency. They were trying to do physical therapy on her. She seemed to be doing fine until she tried to stand up. She was sitting just fine. When she stood up, she felt lightheaded. There was no loss of consciousness. No defibrillator discharge or fall or injury or anything else to make it seem like an acute emergen cy. EMS was called. Her O2 saturation was low, although we do not know the number and she was broug ht to the hospital. Now, she is in the ICU. Mrs. Ayala has an ejection fraction that is extremel y low. Apparently, it is a nonischemic cardiomyopathy. She is on congestive heart failure regimen f rom the heart failure team and she is on a milrinone drip. Also, gets Entresto, carvedilol, Isordil, aspirin, Plavix, Bumex. She also has diabetes and takes glimepiride and metformin. She also takes digoxin 0.125 mg daily, although with her present renal function that may be an overdose. She also t akes atorvastatin and Lexapro. Ms. Ayala does not use tobacco or illegal drugs. Physical Examination: General: 5 feet 6, 113 pounds. Vital Signs: Blood pressure 110/72, heart rate 63, O2 saturation 100% on 2 L nasal cannula. HEENT: Normal. Lungs: Clear. Heart: Regular rate and rhythm. No significant murmur. Abdomen: Soft. Extremities: No edema. Distal pulses are diminished. Electrocardiogram from today shows sinus rhythm, nonspecific ST and T abnormality, not any difference s from EKGs from December of this year. Impression: The patient probably gets hypotensive with standing. Perhaps, home physical therapy is not a good idea. She should go to cardiac rehab where monitoring is better, in any event continuing her outpatient medications is in order. I think an echocardiogram might be useful. It is possible h er ejection fraction has improved. Maybe some of the medicines she is on could be cut down, perhaps even the milrinone could be reduced in her. If that could be done, which would be a decision for Dr. Levy, her clamp jig assembler at [facility] Failure team, she will be less likely get dizzy with standing. Also, isosorbide mononitrate may be a medicine that could be held. We need to check a di goxin level and see if with her present renal function if digoxin should perhaps be discontinued. DOMITILA/CHRISTY Voice ID: [id number] Report ID: [id number]
[2019-01-15] MEDS ORDERED: ONDANSETRON 4 MG/2 ML VIAL ONE (19:24)
[2019-01-15] MEDS ORDERED: ONDANSETRON 4 MG/2 ML VIAL IV ONE (19:39)
[2019-01-15] MEDS: ATORVASTATIN 40 MG TAB PO SCH (20:10)
[2019-01-15] MEDS: BUMETANIDE 1 MG TABLET PO SCH (20:11)
[2019-01-15] MEDS: SACUBITRIL/VALSARTAN 24/26 MG TAB PO SCH (20:11)
[2019-01-15] MEDS: CARVEDILOL 6.25 MG TAB PO SCH (20:11)
[2019-01-15] MEDS: INSULIN -REGULAR HUMAN 50 UNIT/0.5 ML ML SQ SCH (20:25)
[2019-01-15] MEDS ORDERED: EPOETIN ALFA-EPBX 10,000 UNIT/ML VIAL SQ SCH (22:00)
[2019-01-15] MEDS ORDERED: EPOETIN ALFA 10,000 UNIT/ML VIAL ONE (22:50)
[2019-01-16 05:08] LABS: Absolute Lymphocytes (CBC) 0.7 K/uL (0.7-4.9); Basophils % 0.6 % (0-1.3); Hematocrit 27.5 % (36.0-45.0); Lymphocytes % 8.6 % (15.3-44.8); MPV 8.4 fL (7.6-11.3); RBC Red Blood Cell Count 2.77 M/uL (3.86-4.86)
[2019-01-16 05:16] LABS: Potassium 4.8 mmol/L (3.5-5.1)
[2019-01-16] MEDS: PANTOPRAZOLE 40MG TABLET PO SCH (06:28)
[2019-01-16 06:41] LABS: Anisocytosis 1+; Blood Morphology Comment NOTED (NOT SEEN); Hypochromasia 1+; Platelet Estimate ADEQ; Poikilocytosis 1+
[2019-01-16 06:42] LABS: Ovalocytes 1+
[2019-01-16] MEDS: INSULIN -REGULAR HUMAN 50 UNIT/0.5 ML ML SQ SCH ×4 (07:19→21:00)
[2019-01-16] MEDS: SACUBITRIL/VALSARTAN 24/26 MG TAB PO SCH ×2 (08:34→21:23)
[2019-01-16] MEDS: CLOPIDOGREL 75 MG TABLET PO SCH (08:34)
[2019-01-16] MEDS: BUMETANIDE 1 MG TABLET PO SCH ×2 (08:34→21:24)
[2019-01-16] MEDS: CARVEDILOL 6.25 MG TAB PO SCH ×2 (08:34→21:24)
[2019-01-16] MEDS: ASPIRIN EC 81 MG TAB PO SCH (08:34)
[2019-01-16] MEDS ORDERED: ONDANSETRON 4 MG/2 ML VIAL IV PRN (09:25)
[2019-01-16] MEDS ORDERED: cloNIDine HCl 0.1 MG TAB PO PRN (09:26)
[2019-01-16] MEDS ORDERED: ACETAMINOPHEN 325 MG TABLET PO PRN (09:34)
[2019-01-16] MEDS ORDERED: DOCUSATE NA 100 MG CAP PO PRN (09:34)
[2019-01-16] MEDS ORDERED: [UNRECOGNIZED DRUG - OTHER] IV SCH (09:45)
[2019-01-16] MEDS ORDERED: MILRINONE IV SCH (09:45)
[2019-01-16] MEDS ORDERED: DEXTROSE IV SCH ×2 (09:45)
--- NOTE | 2019-01-16 12:12 | EKG ---
Test Date: 2019-01-16 Test Time: 07:30:15 Brim Setter: HAMMAD MEASUREMENT RESULTS: Intervals: Rate: 89 CT: 272 QRSD: 98 QT: 352 QTc: 428 [place]: P: 76 CT: 272 QRS: 9 T: 31 INTERPRETIVE STATEMENTS: Sinus rhythm with 1st degree AV block Nonspecific ST and T wave abnormality Abnormal ECG Compared to ECG 01/15/2019 11:04:33 First degree AV block now present Possible ischemia no longer present ST (T wave) deviation still present Electronically Signed On 01-16-19 12:10:16 CDT by Vitaliy Hook
--- NOTE | 2019-01-16 12:35 | ECHO ---
HEIGHT: 5 ft 6 in WEIGHT: 113 lb 2 oz DATE OF STUDY: 01/16/[address]: John Foster MD 2-DIMENSIONAL: YES M.MODE: YES DOPPLER: YES COLOR FLOW: YES TDS: YES PORTABLE: YES DEFINITY: NO BUBBLE STUDY: NO DIAGNOSIS: CARDIOMYOPATHY CARDIAC HISTORY: CATHERIZATION: YES SURGERY: NO PROSTHETIC VALVE: NO PACEMAKER: NO MEASUREMENTS (cm) DIASTOLIC (NORMALS) SYSTOLIC (NORMALS) IVSd 1.2 (0.6-1.2) LA Diam 3.2 (1.9-4.0) LVEF 45% LVIDd 6.3 (3.5-5.7) LVIDs 4.9 (2.0-3.5) %FS 23% LVPWd 1.0 (0.6-1.2) Ao Diam 3.1 (2.0-3.7) 2 DIMENSIONAL ASSESSMENT: RIGHT ATRIUM: NORMAL LEFT ATRIUM: NORMAL RIGHT VENTRICLE: NORMAL LEFT VENTRICLE: NORMAL TRICUSPID VALVE: NORMAL MITRAL VALVE: MITRAL ANNULAR CALCIFICATION PULMONIC VALVE: NORMAL AORTIC VALVE: NORMAL PERICARDIAL EFFUSION: NONE AORTIC ROOT: NORMAL LEFT VENTRICULAR WALL MOTION: ANTEROAPICAL AKINESIS DOPPLER/COLOR FLOW: MILD MITRAL AND TRICUSPID REGURGITATION. COMMENTS: ANTEROAPICAL AKINESIS. LEFT VENTRICULAR EJECTION FRACTION 40-45%. LEFT VENTRICULAR ENLARGEMENT. MITRAL ANNULAR CALCIFICATION. MILD MITRAL AND TRICUSPID REGURGITATION. RIGHT VENTRICULAR SYSTOLIC PRESSURE 48mmHg. MODERATE PULMONARY HYPERTENSION. TECHNOLOGIST: Shante CHOUDHURY
[2019-01-16] MEDS ORDERED: HOME MED 1 EA UNK (Metformin Hcl [Metformin Hcl] 1,000 MG) PO SCH (17:00)
--- NOTE | 2019-01-16 20:10 | P.PN ---
Date of Service: 01/16/19 Vital Signs Temp Pulse Resp BP Pulse Ox 98.8 F 93 H 19 121/76 100 01/16/19 16:00 01/16/19 19:00 01/16/19 19:00 01/16/19 19:00 01/16/19 19:00 Medications Acetaminophen (Tylenol -Tablet) 650 mg PO Q6H PRN PRN Reason: Pain scale 2-4 (Mild) Aspirin (Aspirin Ec) 81 mg PO DAILY KATIA Stop: 02/15/19 09:01 Last Admin: 01/16/19 08:34 Dose: 81 mg Atorvastatin Calcium (Lipitor) 40 mg PO BEDTIME KATIA Stop: 02/14/19 21:01 Last Admin: 01/15/19 20:10 Dose: 40 mg Bumetanide (Bumex) 1 mg PO BID KATIA Stop: 02/14/19 21:01 Last Admin: 01/16/19 08:34 Dose: 1 mg Carvedilol (Coreg) 6.25 mg PO BID KATIA Stop: 02/14/19 21:01 Last Admin: 01/16/19 08:34 Dose: 6.25 mg Clonidine HCl (Catapres) 0.1 mg PO Q6HP PRN PRN Reason: Hypertension Stop: 02/15/19 09:27 Last Admin: 01/16/19 09:50 Dose: 0.1 mg Clopidogrel Bisulfate (Plavix) 75 mg PO DAILY KATIA Stop: 02/15/19 09:01 Last Admin: 01/16/19 08:34 Dose: 75 mg Dextrose (Dextrose 50% Syringe) 12.5 gm IV PRN PRN; Protocol PRN Reason: HYPOGLYCEMIA Stop: 02/14/19 17:05 Docusate Sodium (Colace Cap) 100 mg PO DAILY PRN PRN Reason: CONSTIPATION Stop: 02/15/19 09:35 Enteral Nutritional Formula (Glucerna Shake) 237 ml PO BID KATIA Stop: 02/15/19 21:01 Escitalopram Oxalate (Lexapro) 10 mg PO DAILY [facility] Stop: 02/16/19 09:01 Glimepiride (Amaryl) 1 mg PO BIDWM KATIA Stop: 02/16/19 08:01 Glucagon (Glucagen) 1 mg IM 1X PRN; Protocol PRN Reason: HYPOGLYCEMIA Stop: 02/14/19 17:05 Home Med (Metformin Hcl [Metformin Hcl]) 1,000 mg PO BIDWM [facility] Stop: 02/15/19 17:01 Home Med (Milrinone Lact/D5w [Milrinone 20 Mg/100 Ml Ivpb (Premix)*]) 24 mcg IV CONT [facility] Stop: 02/15/19 09:46 Home Med (Milrinone Lact/D5w [Milrinone 20 Mg/100 Ml Ivpb (Premix)*]) 0 mcg IV CONT [facility] Stop: 02/15/19 09:46 Insulin Human Regular (Novolin -R) 0 unit SQ ACHS [facility]; Protocol Stop: 02/14/19 21:01 Last Admin: 01/16/19 16:30 Dose: Not Given Ondansetron HCl (Zofran) 4 mg IV Q4H PRN PRN Reason: NAUSEA / VOMITING Stop: 02/15/19 09:26 Last Admin: 01/16/19 11:00 Dose: 4 mg Pantoprazole Sodium (Protonix Tab) 40 mg PO DAILYAC [facility]; Protocol Stop: 02/15/19 06:31 Last Admin: 01/16/19 06:28 Dose: Not Given Sodium Chloride (Normal Saline Flush) 10 ml IV BID [facility] Stop: 02/14/19 21:01 Last Admin: 01/16/19 08:50 Dose: 10 ml Spironolactone (Aldactone) 12.5 mg PO DAILY [facility] Stop: 02/16/19 09:01 Lab Results (last 24 hrs) 01/16/19 11:43: POC Glucose 120 01/16/19 04:27: Digoxin 1.60 01/16/19 04:27: Sodium 138, Potassium 4.8, Chloride 102, Carbon Dioxide 33 H, BUN 46 H, Creatinine 2.26 H, Estimated GFR 26 L, Glucose 152 H, Calcium 9.9 01/16/19 04:27: WBC 8.0 D, RBC 2.77 L, Hgb 9.9 L, Hct 27.5 L, MCV 99.3, MCH 35.7 H, MCHC 35.9, RDW 13.8, Plt Count 289, MPV 8.4, Neutrophils % 85.9 H, Lymphocytes % 8.6 L, Monocytes % 4.4, Eosinophils % 0.5, Basophils % 0.6, Absolute Neutrophils 6.9, Segmented Neutrophils 82 H, Absolute Lymphocytes 0.7, Lymphocytes 12 L, Monocytes 5, Absolute Monocytes 0.4, Eosinophils 1, Absolute Eosinophils 0.0, Absolute Basophils 0.0, Hypochromasia 1+, Poikilocytosis 1+, Anisocytosis 1+, Microcytosis 1+, Ovalocytes 1+, Morphology Comment Noted 01/15/19 20:28: POC Glucose 175 H 01/15/19 16:32: POC Glucose 161 H Assessment/ Plan: Nephrology. CPS stable without CP or SOB. No acute events overnight. Nurse reports poor appetite and good urine output. Depressed mood noted by staff. Vitals, medications, blood work and imaging reviewed in the chart. General: In no apparent distress, Oriented x3, Cooperative HEENT: Atraumatic Neck: Supple Respiratory: Clear to auscultation bilaterally Cardiovascular: No edema, Regular rate/rhythm, No rubs Gastrointestinal: Soft and benign, Non-distended Musculoskeletal: No clubbing, No contractures Integumentary: No rashes, No cyanosis Neurological: Normal speech Laboratory Data (last 24 hrs) 01/15/19 11:30: PT 12.2, INR 1.04 01/15/19 11:30: WBC 5.4, Hgb 8.7 L, Hct 25.6 L, Plt Count 268 01/15/19 11:30: Sodium 138, Potassium 4.7, BUN 49 H, Creatinine 2.15 H, Glucose 191 H, Magnesium 2.6 H, Total Bilirubin 0.3, AST 13 L, ALT 15, Alkaline Phosphatase 45 Imagings Data: EXAM DESCRIPTION: RAD - Chest Single View - 01/15/2019 11:59 am CLINICAL HISTORY: CONGESTION Chest pain. COMPARISON: Chest Single View dated 01/01/2019; Chest Single View dated 2018; Chest Single View dated 12/21/2018; Chest Single View dated 08/24/2018 FINDINGS: Portable technique limits examination quality. The lungs are grossly clear. The heart is significantly enlarged with a tortuous thoracic aorta, with aortic stent graft in place. Several left-sided monitoring device is noted.Right-sided PICC line has tip in the SVC. Conclusions/Impression: A/ DARRYL likely CRS. CKD III. Systolic CHF, chronic. HTN with CKD/ CHF. DM II with CKD. Anemia in chronic illness/ CKD. P/ Continue current POC and Medications. Continue bumex. Encourage nutrition. Plan to see personal equipment service technician soon. No NSAIDs. AM labs. Daily weight.
[2019-01-16] MEDS ORDERED: VALSARTAN PO SCH (21:00)
[2019-01-16] MEDS ORDERED: CARVEDILOL 6.25 MG TAB PO SCH (21:00)
[2019-01-16] MEDS ORDERED: SACUBITRIL PO SCH (21:00)
[2019-01-16] MEDS ORDERED: BUMETANIDE 1 MG TABLET PO SCH (21:00)
[2019-01-16] MEDS: GLUCERNA SHAKE 237 ML CAN PO SCH (21:24)
[2019-01-16] MEDS: ATORVASTATIN 40 MG TAB PO SCH (21:24)
--- NOTE | 2019-01-17 01:05 | HP ---
Date of Admission: 01/16/2019 Chief Complaint: Near syncope. History Of Present Illness: The patient was recently discharged from this hospital for episode of hy potension, CHF exacerbation, and required some adjustments of her LifeVest. She went home on physica l therapy and was doing fairly well for her until the day of admission, which was her second PT treat ment. During this time, they attempted to get her up because she spends most of the time bedridden a nd they felt that she was going to collapse. They did an O2 saturation, which was in the 70% and her blood pressure was 90/60 as reported by home health. They therefore transported her to the emergenc y room, at which time she was evaluated and decided to admit her after giving her some IV fluids in a ttempt to stabilize her blood pressure. Past Medical History: Patient has had significant hospitalizations over the past few years for probl ems relating to chronic CHF and is under the care of a team of physicians from [place], has been rela tively stable other than exacerbations of hypertension and hypotension. Diabetes has been under cont rol on oral medication and diet. Family History: Noncontributory. Social History: Nonsmoker, nondrinker. Physical Examination: General: At the time of seeing, patient was alert, orientated with stable vital signs. Head and Neck: Normocephalic. Pupils equal and reactive to light and accommodation. Fundi negative . Trachea midline. Thyroid not palpable. ENT: Negative. Chest: Clear to P and A. Cardiovascular: PMI in midclavicular line. Heart sounds normal. Peripheral pulses present and equa l bilaterally. Abdomen: No organomegaly. Bowel sounds present. Extremities: Good tone and movement bilaterally. Reflexes physiologic. Rectal and Pelvic: Deferred. Impression: Vasovagal syncope; congestive heart failure; chronic hypertension, poor control; non-ins ulin-dependent diabetes mellitus, good control. Plan: Patient will be admitted. Hydration will be done. Monitoring of her blood pressure and possi rosi some changes in her medication doses depending on her results. HR/MODL Voice ID: [id number]
--- NOTE | 2019-01-17 01:15 | PN ---
Date of Progress Note: 01/16/2019 Subjective: Ms. Ayala was admitted with orthostatic hypotension, acute kidney failure. She is do ing much better. Her blood pressure is improved. It was 171/104 and that has gotten down to about 1 30/80 after clonidine. Her last creatinine is 2.36, hemoglobin is 9.9. Her BNP is 6079. Her glucos e is 152. Digoxin level is pending. Echocardiogram which was done today, showed an ejection fractio n of 40% to 45%, which is much improved. She is off Imdur, off digoxin. I was hoping Ms. Jamie diaz an go home tomorrow or early so she can see Dr. Levy in [place] for her congestive heart failure f ollowup. Hopefully, at that time they will decrease or wean her off the Milrinone, which may be an i ssue with her blood pressure. She will continue on Entresto and carvedilol for now. PHILL/CHRISTY Voice ID: [id number] Report ID: [id number]
--- NOTE | 2019-01-17 01:30 | PN ---
Date of Progress Note: 01/16/2019 Patient has had episodes of diastolic hypertension over the past few hours. At the time I saw her, d iastolic was 120. Clonidine was therefore added to the regimen. She had some periods of being grogg y and possible orientation problems. However, at the time I saw her, she was more responsive. Howev er, it was felt that dig level was normal and therefore this was held as well as the Isordil. Depend ing on her blood pressure status, she may be able to be transferred to floor care or even discharged later in the day. HR/MODL Voice ID: [id number] Report ID: [id number]
[2019-01-17 05:52] VITALS: BMI 18.3
[2019-01-17] MEDS: PANTOPRAZOLE 40MG TABLET PO SCH (06:07)
[2019-01-17] MEDS: INSULIN -REGULAR HUMAN 50 UNIT/0.5 ML ML SQ SCH (07:13)
[2019-01-17] MEDS ORDERED: GLIMEPIRIDE 2 MG TABLET PO SCH (08:00)
[2019-01-17] MEDS: SACUBITRIL/VALSARTAN 24/26 MG TAB PO SCH (08:25)
[2019-01-17] MEDS: CLOPIDOGREL 75 MG TABLET PO SCH (08:25)
[2019-01-17] MEDS: ASPIRIN EC 81 MG TAB PO SCH (08:26)
[2019-01-17] MEDS: BUMETANIDE 1 MG TABLET PO SCH (08:26)
[2019-01-17] MEDS ORDERED: ATORVASTATIN 40 MG TAB PO SCH (09:00)
[2019-01-17] MEDS ORDERED: CLOPIDOGREL 75 MG TABLET PO SCH (09:00)
[2019-01-17] MEDS: GLUCERNA SHAKE 237 ML CAN PO SCH (09:00)
[2019-01-17] MEDS: CARVEDILOL 6.25 MG TAB PO SCH (09:00)
[2019-01-17] MEDS ORDERED: PANTOPRAZOLE 40MG TABLET PO SCH (09:00)
[2019-01-17] MEDS ORDERED: ESCITALOPRAM 20 MG TAB PO SCH (09:00)
[2019-01-17] MEDS ORDERED: SPIRONOLACTONE 25 MG TABLET PO SCH (09:00)
[2019-01-17] MEDS ORDERED: ASPIRIN EC 81 MG TAB PO SCH (09:00)
--- NOTE | 2019-01-17 09:09 | HP ---
Date of Admission: 01/16/2019 The patient in ICU tonight, seems much more comfortable. Blood pressure actually was slightly elevat ed. At times, seen up to 140. She used to be seen by Cardiology and Nephrology and she has a slight ly elevated creatinine, although this has been elevated in the past as well. She is on diuretics. H ydration factor may play a part in the event. There is no significant change from that perspective. Cardiologically, felt that maybe there was slight improvement in her CHF status and therefore medica tion doses could be adjusted awaiting an echo and a dig level. HR/MODL Voice ID: [id number]
[2019-01-17 09:24] VITALS: O2SAT 98
[2019-01-17 09:26] VITALS: BP 117/82
[2019-01-17 09:32] VITALS: TEMP 97.1
== END 2019-01-17 09:35 | disposition home health service (06) | DRG 292 ==
LOC: ER 10:49 → ERHOLD 12:41 → 3RD-ICU 14:10 → OBSVTOIN 01-16 15:00
PROVIDERS: ADMIT Family Medicine; ATTEND Family Medicine
DX: I13.0 Hypertensive heart and chronic kidney disease with heart failure and stage 1 through stage 4 chronic kidney disease, or unspecified chronic kidney disease (principal); I50.32 Chronic diastolic (congestive) heart failure; N17.9 Acute kidney failure, unspecified; R55 Syncope and collapse; E11.22 Type 2 diabetes mellitus with diabetic chronic kidney disease; D63.1 Anemia in chronic kidney disease; Z79.4 Long term (current) use of insulin
CPT/HCPCS: 36415; 71045; 80048; 80076; 80162; 82962; 83735; 83880; 84484; 85025; 85610; 93005; 93306; 99285; G0378; J0583; J2250; J2405; J7040

== ENCOUNTER 2019-02-06 15:29 | Emergency (ER) | payer OTHER ==
[2019-02-06] MEDS ORDERED: LIDOCAINE VISCOUS 2% SOLN 15 ML UDC ONE (16:23)
[2019-02-06] MEDS ORDERED: PHENYLEPHRINE 0.5% NOSE 15ML NAS ONE (16:23)
[2019-02-06 16:46] LABS: Absolute Lymphocytes (CBC) 0.5 K/uL (0.7-4.9); Basophils % 0.8 % (0-1.3); Hematocrit 25.3 % (36.0-45.0); Lymphocytes % 7.1 % (15.3-44.8); MPV 7.8 fL (7.6-11.3); RBC Red Blood Cell Count 2.51 M/uL (3.86-4.86)
[2019-02-06 16:52] LABS: Protime INR 1.04
[2019-02-06 17:02] LABS: Potassium 4.2 mmol/L (3.5-5.1)
--- NOTE | 2019-02-06 18:24 | EDPHYS ---
Physician Documentation [facility] Name: Christa Ayala Age: 73 yrs Sex: Female : 1945 Arrival Date: 02/06/2019 Time: 15:33 Bed 15 Private MD: ED Physician Jameel Nath HPI: 02/06 18:55 This 73 yrs old Black Female presents to ER via EMS with complaints of Nose Bleed. az 18:55 This 73 yrs old Black Female presents to ER via EMS with complaints of Nose Bleed. az 18:55 The patient presents with a nose bleed, that is apparently anterior, from the left wa nare, occurred after blowing nose, that is intermittent with clots, causative factors include: takes plavix. Onset: The symptoms/episode began/occurred 4 hour(s) ago. Modifying factors: The symptoms are alleviated by nothing. the symptoms are aggravated by nothing. Associated signs and symptoms: Loss of consciousness: the patient experienced no loss of consciousness, Pertinent negatives: blurred vision, chest pain, lightheadedness, sore throat. Severity of symptoms: At their worst the symptoms were moderate in the emergency department the symptoms have improved moderately. The patient has not experienced similar symptoms in the past. The patient has not recently seen a physician. pt on hospice. takes plavix for afib. L nose began bleed after blowing nose. intermittent since onset. passing clots. . Historical: - Allergies: 15:42 Codeine; ca1 15:42 Demerol; ca1 15:42 Iodine; ca1 - PMHx: 15:42 Anemia; Atrial Fib; CHF; COPD; Diabetes - NIDDM; Emphysema; enlarged aorta; GERD; High ca1 Cholesterol; Hypertension; Myocardial infarction; - Immunization history:: Adult Immunizations up to date, Flu vaccine is not up to date. It has been more than one year since last vaccine. - Social history:: Smoking status: Patient/guardian denies using tobacco. - Ebola Screening: : Patient negative for fever greater than or equal to 101.5 degrees Fahrenheit, and additional compatible Ebola Virus Disease symptoms Patient denies exposure to infectious person Patient denies travel to an Ebola-affected area in the 21 days before illness onset No symptoms or risks identified at this time. - Family history:: not pertinent. - Hospitalizations: : No recent hospitalization is reported. ROS: 18:58 Constitutional: Negative for fever, chills, and weight loss, Eyes: Negative for injury, wa pain, redness, and discharge, Neck: Negative for injury, pain, and swelling, Cardiovascular: Negative for chest pain, palpitations, and edema, Abdomen/GI: Negative for abdominal pain, nausea, vomiting, diarrhea, and constipation, Back: Negative for injury and pain, : Negative for injury, bleeding, discharge, and swelling, MS/Extremity: Negative for injury and deformity, Skin: Negative for injury, rash, and discoloration, Neuro: Negative for headache, weakness, numbness, tingling, and seizure, Psych: Negative for depression, anxiety, suicide ideation, homicidal ideation, and hallucinations. 18:58 ENT: Positive for nose bleed. 18:58 Respiratory: Positive for shortness of breath, at rest. chronic. on home O2. 18:58 All other systems are negative. Exam: 18:59 Constitutional: This is a well developed, well nourished patient who is awake, alert, wa and in no acute distress. Head/Face: Normocephalic, atraumatic. Eyes: Pupils equal round and reactive to light, extra-ocular motions intact. Lids and lashes normal. Conjunctiva and sclera are non-icteric and not injected. Cornea within normal limits. Periorbital areas with no swelling, redness, or edema. Neck: Trachea midline, no thyromegaly or masses palpated, and no cervical lymphadenopathy. Supple, full range of motion without nuchal rigidity, or vertebral point tenderness. No Meningismus. Chest/axilla: Normal chest wall appearance and motion. Nontender with no deformity. No lesions are appreciated. Abdomen/GI: Soft, non-tender, with normal bowel sounds. No distension or tympany. No guarding or rebound. No evidence of tenderness throughout. Back: No spinal tenderness. No costovertebral tenderness. Full range of motion. Skin: Warm, dry with normal turgor. Normal color with no rashes, no lesions, and no evidence of cellulitis. MS/ Extremity: Pulses equal, no cyanosis. Neurovascular intact. Full, normal range of motion. Neuro: Awake and alert, GCS 15, oriented to person, place, time, and situation. Cranial nerves II-XII grossly intact. Motor strength 5/5 in all extremities. Sensory grossly intact. Cerebellar exam normal. Normal gait. Psych: Awake, alert, with orientation to person, place and time. Behavior, mood, and affect are within normal limits. 18:59 ENT: Nose: bleeding, is seen from the left nare, and is moderate. 18:59 Cardiovascular: Rate: normal, Rhythm: irregularly irregular, Edema: is not appreciated. 18:59 Respiratory: the patient does not display signs of respiratory distress, Respirations: tachypnea, that is mild, Breath sounds: coarse bilaterally, Respiratory rate: tachypneic Vital Signs: 15:42 BP 147 / 119; Pulse 91; Resp 18; Pulse Ox 100% on R/A; sg 15:42 BP 147 / 119; Pulse 91; Resp 20; Temp 97.9(TE); Pulse Ox 96% on R/A; em1 15:42 BP 147 / 119; Pulse 94; Resp 21; Pulse Ox 100% on R/A; Weight 53.07 kg (R); Height 5 ca1 ft. 6 in. (167.64 cm) (R); Pain 0/10; 17:00 BP 142 / 89; Pulse 88; Resp 20; Pulse Ox 98% on 3 lpm NC; sg 18:30 BP 144 / 90; Pulse 89; Resp 17; Pulse Ox 99% on 3 lpm NC; sg 15:42 Body Mass Index 18.88 (53.07 kg, 167.64 cm) ca1 Procedures: 19:03 Epistaxis treatment: A moderate amount of bleeding noted from left nare. Treated using az Oxymetazoline sprays, direct pressure, nasal clamp, anterior packing, nasal tampon, viscous lidocaine infused in nares prior to procedure for comfort and procedure tolerance. MDM: 15:51 Patient medically screened. az 19:01 Differential diagnosis: spontaneous epistaxis, hospice pt. afib. on plavix. nosebleed. wa will attempt to stop bleeding. set up, procedure. reassess. Data reviewed: vital signs, nurses notes, lab test result(s). Test interpretation: by ED physician or midlevel provider: labs: BUN/Cr 28/1.38. H/H: 8.4/25.3. BNP 53084. . Response to treatment: the patient's symptoms have markedly improved after treatment. 19:04 Special discussion: pt and family declined EKG and CXR. d/c'd with keflex. advised to az hold plavix for 24 hours. return tmrw evening for tampon removal. 02/06 16:35 Order name: Basic Metabolic Panel; Complete Time: 17:50 az 02/06 16:35 Order name: CBC with Diff az 02/06 16:35 Order name: PT-INR; Complete Time: 17:50 az 02/06 16:53 Order name: Troponin (emerg Dept Use Only); Complete Time: 17:50 az 02/06 16:35 Order name: Cardiac monitoring; Complete Time: 16:46 az 02/06 16:35 Order name: IV Saline Lock; Complete Time: 16:46 02/06 16:35 Order name: Labs collected and sent; Complete Time: 16:47 az 02/06 16:35 Order name: O2 Per Protocol; Complete Time: 16:47 az 02/06 16:35 Order name: O2 Sat Monitoring; Complete Time: 16:47 az 02/06 17:22 Order name: PROBNP; Complete Time: 17:50 sg Administered Medications: No medications were administered Disposition: 02/06/19 18:23 Discharged to Home. Impression: Epistaxis. - Condition is Stable. - Discharge Instructions: Nosebleed, [id number]. - Prescriptions for Keflex 250 mg Oral Capsule - take 1 capsule by ORAL route every 8 hours for 3 days; 9 capsule. - Medication Reconciliation Form, Thank You Letter, Antibiotic Education, Prescription Opioid Use form. - Follow up: Kendrick Stevens MD; When: 1 - 2 days; Reason: Recheck today's complaints. - Problem is new. - Symptoms have improved. - Notes: return to ER immediately for rapid/severe nosebleed. return tomorrow evening for the tampon to be removed. take antibiotics as prescribed. hold your plavix dose for tomorrow Signatures: Dispatcher [employer] EDMS Karissa Liu RN RN ea Appiah, William, MD MD wa Acob, Cheryl RN RN ca1 Corrections: (The following items were deleted from the chart) 17:02 16:56 Blood Culture ordered. EDMS EDMS 17:08 16:54 CKMB+C.LAB.BRZ ordered. EDMS EDMS 17:08 16:54 CREATINE PHOSPHOKINASE+C.LAB.BRZ ordered. EDMS EDMS 17:08 16:54 LIPASE+C.LAB.BRZ ordered. EDMS EDMS 17:08 16:54 MAGNESIUM+C.LAB.BRZ ordered. EDMS EDMS 17:08 16:54 PROBNP+C.LAB.BRZ ordered. EDMS EDMS 17:08 16:54 PTT, ACTIVATED+COAG.LAB.BRZ ordered. EDMS EDMS 17:10 16:36 HEPATIC FUNCTION+C.LAB.BRZ ordered. EDMS EDMS 17:10 16:54 D-DIMER+COAG.LAB.BRZ ordered. EDMS EDMS 19:21 18:23 02/06/2019 18:23 Discharged to Home. Impression: Epistaxis. Condition is Stable. ea Forms are Medication Reconciliation Form, Thank You Letter, Antibiotic Education, Prescription Opioid Use. Follow up: Kendrick Stevens; When: 1 - 2 days; Reason: Recheck today's complaints. Problem is new. Symptoms have improved. wa
--- NOTE | 2019-02-06 18:24 | ER ---
Nurse's Notes [facility] Name: Christa Ayala Age: 73 yrs Sex: Female : 1945 Arrival Date: 02/06/2019 Time: 15:33 Bed 15 Private MD: Diagnosis: Epistaxis Presentation: 02/06 15:33 Presenting complaint: EMS states: pt c/o nosebleed 20 - 30 minutes ago that just ca1 started out of nowhere. Pt also is coughing with tiny blood clots. PT reports to have flu-like symptoms in the past few days. Cold packs applied. Transition of care: patient was not received from another setting of care. Onset of symptoms was February 06, 2019. Risk Assessment: Do you want to hurt yourself or someone else? Patient reports no desire to harm self or others. Initial Sepsis Screen: Does the patient meet any 2 criteria? No. Patient's initial sepsis screen is negative. Does the patient have a suspected source of infection? No. Patient's initial sepsis screen is negative. Care prior to arrival: None. 15:33 Method Of Arrival: EMS: [facility] ca1 15:33 Acuity: SONYA 3 ca1 Historical: - Allergies: 15:42 Codeine; ca1 15:42 Demerol; ca1 15:42 Iodine; ca1 - PMHx: 15:42 Anemia; Atrial Fib; CHF; COPD; Diabetes - NIDDM; Emphysema; enlarged aorta; GERD; High ca1 Cholesterol; Hypertension; Myocardial infarction; - Immunization history:: Adult Immunizations up to date, Flu vaccine is not up to date. It has been more than one year since last vaccine. - Social history:: Smoking status: Patient/guardian denies using tobacco. - Ebola Screening: : Patient negative for fever greater than or equal to 101.5 degrees Fahrenheit, and additional compatible Ebola Virus Disease symptoms Patient denies exposure to infectious person Patient denies travel to an Ebola-affected area in the 21 days before illness onset No symptoms or risks identified at this time. - Family history:: not pertinent. - Hospitalizations: : No recent hospitalization is reported. Screenin:20 Abuse screen: Denies threats or abuse. Denies injuries from another. Nutritional sg screening: No deficits noted. Tuberculosis screening: No symptoms or risk factors identified. Never had TB. Fall Risk None identified. Assessment: 15:45 Reassessment: a nose clamp has been applied due to bleeding at this time. General: sg Appears in no apparent distress. well groomed, well developed, well nourished, Behavior is calm, cooperative, appropriate for age. Pain: Denies pain. Neuro: Level of Consciousness is awake, alert, obeys commands, Oriented to person, place, time, Manufacturing Software Engineer are equal bilaterally Moves all extremities. Gait is steady, Speech is normal, Facial symmetry appears normal. Cardiovascular: Capillary refill is brisk in bilateral fingers Patient's skin is warm and dry. Chest pain is denied. Respiratory: Airway is patent Respiratory effort is even, unlabored, Respiratory pattern is regular, symmetrical. GI: Abdomen is round non-distended. : No signs and/or symptoms were reported regarding the genitourinary system. EENT: Nares with bleeding noted bilaterally Oral mucosa is moist. Throat is pink. Derm: Skin is pink, warm \\T\\ dry. Musculoskeletal: Circulation, motion, and sensation intact. Range of motion: intact in all extremities. 16:20 Reassessment: pt daughter at bedside, at bedside, administer sg Darek-Synephrine x2 to bilateral nares, viscous lidocaine applied as well, a RhinoRocket has been applied to the left nare, bleeding controlled at this time, pt tolerated procedure well, will continue to monitor. 16:56 Reassessment: Dr. Nath VO to cancel some labs ordered. Notified outside lab. ca1 17:42 [facility]assessment[facility] "Pt said she did not want to be treated on her ca1 heart condition. I told her this is not a treatment but a diagnostic test. She refused the EKG at this time". Notified provider. Vital Signs: 15:42 BP 147 / 119; Pulse 91; Resp 18; Pulse Ox 100% on R/A; sg 15:42 BP 147 / 119; Pulse 91; Resp 20; Temp 97.9(TE); Pulse Ox 96% on R/A; em1 15:42 BP 147 / 119; Pulse 94; Resp 21; Pulse Ox 100% on R/A; Weight 53.07 kg (R); Height 5 ca1 ft. 6 in. (167.64 cm) (R); Pain 0/10; 17:00 BP 142 / 89; Pulse 88; Resp 20; Pulse Ox 98% on 3 lpm NC; sg 18:30 BP 144 / 90; Pulse 89; Resp 17; Pulse Ox 99% on 3 lpm NC; sg 15:42 Body Mass Index 18.88 (53.07 kg, 167.64 cm) ca1 ED Course: 15:33 Patient arrived in ED. ca1 15:35 Tyron Gonzalez, RN is Primary Nurse. sg 15:38 Triage completed. ca1 15:42 Arm band placed on. sg 15:45 Patient has correct armband on for positive identification. Bed in low position. Call sg light in reach. Side rails up X2. air sampling and monitoring on. Pulse ox on. NIBP on. Warm blanket given. Head of bed elevated. 15:51 Jameel Nath MD is Attending Physician. az 16:40 Initial lab(s) drawn, by me, sent to lab. Missed attempt(s): 22 gauge in left forearm. sg Bleeding controlled, band aid applied, catheter tip intact. 18:22 Kendrick Stevens MD is Referral Physician. az 19:00 No provider procedures requiring assistance completed. Patient did not have IV access sg during this emergency room visit. Administered Medications: No medications were administered Outcome: 18:23 Discharge ordered by . az 19:00 Discharged to home via wheelchair, with family. 19:00 Condition: stable 19:00 Discharge instructions given to patient, family, Instructed on discharge instructions, follow up and referral plans. safety practices, Demonstrated understanding of instructions, follow-up care, Prescriptions given X 1. 19:21 Patient left the ED. ea Signatures: Tyron Gonzalez RN RN James Lainez em1 Karissa Liu RN RN ea Appiah, William, MD MD az Vanessa Orosco RN RN ca1 Corrections: (The following items were deleted from the chart) 17:03 16:56 Reassessment: Dr. Nath VO to cancel some labs. ca1 ca1 17:21 15:45 EENT: No signs and/or symptoms were reported regarding the EENT system. [facility]
[2019-02-06 19:44] LABS: Blood Morphology Comment NOTED (NOT SEEN); Platelet Estimate ADEQ
[2019-02-06 22:45] VITALS: TEMP 97.9
[2019-02-06 22:48] VITALS: BP 144/90; O2SAT 99
--- OUTSIDE RECORDS SUMMARY | 2019-02-11 23:59 | XMS REPORT ---
:1945 [facility] [address] [place] [id number] Care Team Providers Name Role Phone PETRA SANCHEZOON Unavailable Unavailable ALVARO OKEEFE Unavailable Unavailable JENNIFER ACEVEDO Unavailable Unavailable OANH MERCHANT Unavailable Unavailable JUSTYN LEVY Unavailable Unavailable DELILAH LANDERS Unavailable Unavailable BRITTNEY CLINTON Unavailable Unavailable DERDA LUKE Unavailable Unavailable OZ WOODARD Unavailable Unavailable Problems This patient has no known problems. Allergies, Adverse Reactions, Alerts This patient has no known allergies or adverse reactions. Medications This patient has no known medications. Results Test Description Test Time Test Comments Text Results Atomic Results Result Comments MAGNESIUM 2019-01-24 06:43:00 Test Item Value Reference Range Comments MAGNESIUM (BEAKER) (test alwq=292) 1.9 mg/dL 1.6-2.6 BASIC METABOLIC [id number] 06:43:00 Test Item Value Reference Range Comments SODIUM (BEAKER) (test 140 meq/L 136-145 guxz=996) POTASSIUM (BEAKER) (test 4.2 meq/L 3.5-5.1 zjsp=070) CHLORIDE (BEAKER) (test 106 meq/L 98-107 iajo=381) CO2 (BEAKER) (test 28 meq/L 22-29 jxay=467) BLOOD UREA NITROGEN 33 mg/dL 7-21 (BEAKER) (test imqj=908) CREATININE (BEAKER) (test 1.51 mg/dL 0.57-1.25 grof=326) GLUCOSE RANDOM (BEAKER) 77 mg/dL 70-105 (test sypq=401) CALCIUM (BEAKER) (test 9.5 mg/dL 8.4-10.2 auaz=702) EGFR (BEAKER) (test 41 mL/min/1.73 sq m ESTIMATED GFR IS NOT kdus=0952) ACCURATE CREATININE CLEARANCE IN PREDICTING GLOMERULAR FILTRATION RATE. ESTIMATED GFR IS NOT APPLICABLE FOR DIALYSIS PATIENTS. B-TYPE NATRIURETIC FACTOR (BNP)2019-01-24 06:12:00 Test Item Value Reference Range Comments B-TYPE NATRIURETIC PEPTIDE (BEAKER) (test 1700 pg/mL 0-100 fvbf=553) OXYGEN SATURATION, [id number] 06:04:00 Test Item Value Reference Range Comments O2 SATURATION (MEASURED) (BEAKER) (test lecv=4368) 98.2 % CBC W/PLT COUNT & AUTO [id number] 05:55:00 Test Item Value Reference Range Comments WHITE BLOOD CELL COUNT (BEAKER) (test kepa=141) 5.5 K/ L 3.5-10.5 RED BLOOD CELL COUNT (BEAKER) (test adai=468) 2.53 M/ L 3.93-5.22 HEMOGLOBIN (BEAKER) (test suox=049) 8.3 GM/DL 11.2-15.7 HEMATOCRIT (BEAKER) (test ioxw=446) 27.4 % 34.1-44.9 MEAN CORPUSCULAR VOLUME (BEAKER) (test hcqp=166) 108.3 fL 79.4-94.8 MEAN CORPUSCULAR HEMOGLOBIN (BEAKER) (test 32.8 pg 25.6-32.2 gqcj=468) MEAN CORPUSCULAR HEMOGLOBIN CONC (BEAKER) (test 30.3 GM/DL 32.2-35.5 pweg=996) RED CELL DISTRIBUTION WIDTH (BEAKER) (test 13.4 % 11.7-14.4 invu=703) PLATELET COUNT (BEAKER) (test iiaq=824) 243 K/CU MM 150-450 MEAN PLATELET VOLUME (BEAKER) (test educ=325) 9.9 fL 9.4-12.3 NUCLEATED RED BLOOD CELLS (BEAKER) (test 0 /100 WBC 0-0 mdbj=283) NEUTROPHILS RELATIVE PERCENT (BEAKER) (test 72 % vzpe=161) LYMPHOCYTES RELATIVE PERCENT (BEAKER) (test 16 % zqjz=779) MONOCYTES RELATIVE PERCENT (BEAKER) (test 7 % rmmn=850) EOSINOPHILS RELATIVE PERCENT (BEAKER) (test 4 % zypf=805) BASOPHILS RELATIVE PERCENT (BEAKER) (test 1 % cpyx=760) NEUTROPHILS ABSOLUTE COUNT (BEAKER) (test 3.94 K/ L 1.56-6.13 hnxa=755) LYMPHOCYTES ABSOLUTE COUNT (BEAKER) (test 0.85 K/ L 1.18-3.74 utev=758) MONOCYTES ABSOLUTE COUNT (BEAKER) (test 0.36 K/ L 0.24-0.36 hkcb=926) EOSINOPHILS ABSOLUTE COUNT (BEAKER) (test 0.24 K/ L 0.04-0.36 nuzg=931) BASOPHILS ABSOLUTE COUNT (BEAKER) (test 0.05 K/ L 0.01-0.08 mzby=637) IMMATURE GRANULOCYTES-RELATIVE PERCENT (BEAKER) 0 % 0-1 (test olwt=8958) URINE PROTEIN ELECTROPHORESIS, [id number] 15:25:00 Test Item Value Reference Range Comments PROTEIN, URINE (BEAKER) (test 10 mg/dL 0-14 hesb=5426) ALBUMIN URINE ELP (BEAKER) 51.2 % (test ovyb=5874) GAMMA GLOBULIN URINE (BEAKER) 48.8 % (test lykw=2138) UPEP, ID-438 (BEAKER) (test 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 No monoclonal bands detected. [id number] (BEAKER) Анна Encarnacion MD (electronic (test mtpk=9938) signature) PROTEIN ELECTROPHORESIS, [id number] 13:35:00 Test Item Value Reference Range Comments ALBUMIN FRACTION (BEAKER) 3.5 g/dL 3.5-5.5 (test tbfu=864) ALPHA 1 FRACTION (BEAKER) 0.3 g/dL 0.2-0.4 (test nekw=400) ALPHA 2 FRACTION (BEAKER) 0.7 g/dL 0.5-0.9 (test lvvn=702) BETA FRACTION (BEAKER) 0.9 g/dL 0.6-1.1 (test necq=207) GAMMA GLOBULIN FRACTION 1.6 g/dL 0.7-1.7 (BEAKER) (test ptcl=868) INTERPRETATION-119 (BEAKER) Normal electrophoretic pattern. (test fkfz=5778) [id number] Анна Encarnacion MD (electronic (BEAKER) (test csah=1029) signature) PROTEIN TOTAL SERUM, SPEP 7.0 gm/dL 6.0-8.3 (BEAKER) (test hfdr=2856) [id number] 07:25:00 Test Item Value Reference Range Comments PHOSPHORUS (BEAKER) (test wuwy=393) 3.5 mg/dL 2.3-4.7 [id number] 07:25:00 Test Item Value Reference Range Comments MAGNESIUM (BEAKER) (test bbrp=358) 2.0 mg/dL 1.6-2.6 BASIC METABOLIC [id number] 07:25:00 Test Item Value Reference Range Comments SODIUM (BEAKER) (test 139 meq/L 136-145 ujkb=495) POTASSIUM (BEAKER) (test 4.1 meq/L 3.5-5.1 jpkf=871) CHLORIDE (BEAKER) (test 105 meq/L 98-107 gqlp=693) CO2 (BEAKER) (test 27 meq/L 22-29 wjob=887) BLOOD UREA NITROGEN 36 mg/dL 7-21 (BEAKER) (test zsjp=250) CREATININE (BEAKER) (test 1.64 mg/dL 0.57-1.25 ahpd=422) GLUCOSE RANDOM (BEAKER) 86 mg/dL 70-105 (test gohw=642) CALCIUM (BEAKER) (test 9.3 mg/dL 8.4-10.2 oekv=317) EGFR (BEAKER) (test 37 mL/min/1.73 sq m ESTIMATED GFR IS NOT lrvr=7327) ACCURATE CREATININE CLEARANCE IN PREDICTING GLOMERULAR FILTRATION RATE. ESTIMATED GFR IS NOT APPLICABLE FOR DIALYSIS PATIENTS. B-TYPE NATRIURETIC FACTOR (BNP)2019-01-23 06:22:00 Test Item Value Reference Range Comments B-TYPE NATRIURETIC PEPTIDE (BEAKER) (test 841 pg/mL 0-100 afdn=257) CALCIUM, [id number] 06:06:00 Test Item Value Reference Range Comments CALCIUM IONIZED (BEAKER) (test jcsl=233) 1.24 mmol/L 1.12-1.27 PH, BLOOD (BEAKER) (test qrww=7245) 7.39 OXYGEN SATURATION, [id number] 06:05:00 Test Item Value Reference Range Comments O2 SATURATION (MEASURED) (BEAKER) (test lalo=6736) 93.6 % CBC W/PLT COUNT & AUTO [id number] 05:54:00 Test Item Value Reference Range Comments WHITE BLOOD CELL COUNT (BEAKER) (test lhxa=671) 5.4 K/ L 3.5-10.5 RED BLOOD CELL COUNT (BEAKER) (test mqfx=293) 2.56 M/ L 3.93-5.22 HEMOGLOBIN (BEAKER) (test cahk=015) 8.5 GM/DL 11.2-15.7 HEMATOCRIT (BEAKER) (test ggih=388) 27.8 % 34.1-44.9 MEAN CORPUSCULAR VOLUME (BEAKER) (test ewrq=394) 108.6 fL 79.4-94.8 MEAN CORPUSCULAR HEMOGLOBIN (BEAKER) (test 33.2 pg 25.6-32.2 pmtp=484) MEAN CORPUSCULAR HEMOGLOBIN CONC (BEAKER) (test 30.6 GM/DL 32.2-35.5 czcg=362) RED CELL DISTRIBUTION WIDTH (BEAKER) (test 13.2 % 11.7-14.4 bblc=527) PLATELET COUNT (BEAKER) (test mvvc=763) 251 K/CU MM 150-450 MEAN PLATELET VOLUME (BEAKER) (test karr=235) 9.4 fL 9.4-12.3 NUCLEATED RED BLOOD CELLS (BEAKER) (test 0 /100 WBC 0-0 npza=543) NEUTROPHILS RELATIVE PERCENT (BEAKER) (test 70 % qmuy=562) LYMPHOCYTES RELATIVE PERCENT (BEAKER) (test 16 % zbzr=343) MONOCYTES RELATIVE PERCENT (BEAKER) (test 7 % afew=546) EOSINOPHILS RELATIVE PERCENT (BEAKER) (test 6 % nofz=714) BASOPHILS RELATIVE PERCENT (BEAKER) (test 1 % mkaf=929) NEUTROPHILS ABSOLUTE COUNT (BEAKER) (test 3.75 K/ L 1.56-6.13 zdax=417) LYMPHOCYTES ABSOLUTE COUNT (BEAKER) (test 0.88 K/ L 1.18-3.74 eqzn=688) MONOCYTES ABSOLUTE COUNT (BEAKER) (test 0.35 K/ L 0.24-0.36 kmuz=188) EOSINOPHILS ABSOLUTE COUNT (BEAKER) (test 0.30 K/ L 0.04-0.36 slpg=279) BASOPHILS ABSOLUTE COUNT (BEAKER) (test 0.05 K/ L 0.01-0.08 rmay=698) IMMATURE GRANULOCYTES-RELATIVE PERCENT (BEAKER) 0 % 0-1 (test yzfi=9931) B-TYPE NATRIURETIC FACTOR (BNP)2019-01-22 06:13:00 Test Item Value Reference Range Comments B-TYPE NATRIURETIC PEPTIDE (BEAKER) (test 811 pg/mL 0-100 jvnv=295) [id number] 05:57:00 Test Item Value Reference Range Comments MAGNESIUM (BEAKER) (test oyfs=837) 2.1 mg/dL 1.6-2.6 BASIC METABOLIC [id number] 05:57:00 Test Item Value Reference Range Comments SODIUM (BEAKER) (test 138 meq/L 136-145 wpls=861) POTASSIUM (BEAKER) (test 4.2 meq/L 3.5-5.1 wckb=658) CHLORIDE (BEAKER) (test 104 meq/L 98-107 hdfx=596) CO2 (BEAKER) (test 26 meq/L 22-29 mzpx=047) BLOOD UREA NITROGEN 36 mg/dL 7-21 (BEAKER) (test kzag=087) CREATININE (BEAKER) (test 1.92 mg/dL 0.57-1.25 qvzd=363) GLUCOSE RANDOM (BEAKER) 82 mg/dL 70-105 (test jdsc=269) CALCIUM (BEAKER) (test 9.6 mg/dL 8.4-10.2 uwgs=423) EGFR (BEAKER) (test 31 mL/min/1.73 sq m ESTIMATED GFR IS NOT itor=5068) ACCURATE CREATININE CLEARANCE IN PREDICTING GLOMERULAR FILTRATION RATE. ESTIMATED GFR IS NOT APPLICABLE FOR DIALYSIS PATIENTS. OXYGEN SATURATION, [id number] 05:47:00 Test Item Value Reference Range Comments O2 SATURATION (MEASURED) (BEAKER) (test dvzn=3196) 34.2 % CBC W/PLT COUNT & AUTO [id number] 05:31:00 Test Item Value Reference Range Comments WHITE BLOOD CELL COUNT (BEAKER) (test poet=812) 5.8 K/ L 3.5-10.5 RED BLOOD CELL COUNT (BEAKER) (test ipuu=276) 2.63 M/ L 3.93-5.22 HEMOGLOBIN (BEAKER) (test scub=512) 8.9 GM/DL 11.2-15.7 HEMATOCRIT (BEAKER) (test ufrh=050) 28.3 % 34.1-44.9 MEAN CORPUSCULAR VOLUME (BEAKER) (test kimi=036) 107.6 fL 79.4-94.8 MEAN CORPUSCULAR HEMOGLOBIN (BEAKER) (test 33.8 pg 25.6-32.2 ouri=122) MEAN CORPUSCULAR HEMOGLOBIN CONC (BEAKER) (test 31.4 GM/DL 32.2-35.5 mekn=261) RED CELL DISTRIBUTION WIDTH (BEAKER) (test 13.2 % 11.7-14.4 zzsl=046) PLATELET COUNT (BEAKER) (test svvm=883) 263 K/CU MM 150-450 MEAN PLATELET VOLUME (BEAKER) (test pouv=159) 9.3 fL 9.4-12.3 NUCLEATED RED BLOOD CELLS (BEAKER) (test 0 /100 WBC 0-0 aysw=767) NEUTROPHILS RELATIVE PERCENT (BEAKER) (test 67 % hxhl=556) LYMPHOCYTES RELATIVE PERCENT (BEAKER) (test 19 % mgjs=740) MONOCYTES RELATIVE PERCENT (BEAKER) (test 6 % fguz=647) EOSINOPHILS RELATIVE PERCENT (BEAKER) (test 6 % utxc=951) BASOPHILS RELATIVE PERCENT (BEAKER) (test 1 % spfq=090) NEUTROPHILS ABSOLUTE COUNT (BEAKER) (test 3.93 K/ L 1.56-6.13 shry=770) LYMPHOCYTES ABSOLUTE COUNT (BEAKER) (test 1.12 K/ L 1.18-3.74 elhx=769) MONOCYTES ABSOLUTE COUNT (BEAKER) (test 0.36 K/ L 0.24-0.36 syym=024) EOSINOPHILS ABSOLUTE COUNT (BEAKER) (test 0.36 K/ L 0.04-0.36 dxkr=785) BASOPHILS ABSOLUTE COUNT (BEAKER) (test 0.06 K/ L 0.01-0.08 jbfy=776) IMMATURE GRANULOCYTES-RELATIVE PERCENT (BEAKER) 0 % 0-1 (test xtpe=5911) CALCIUM, [id number] 06:00:00 Test Item Value Reference Range Comments CALCIUM IONIZED (BEAKER) (test chrj=872) 1.19 mmol/L 1.12-1.27 PH, BLOOD (BEAKER) (test znpi=8930) 7.35 OXYGEN SATURATION, [id number] 05:59:00 Test Item Value Reference Range Comments O2 SATURATION (MEASURED) (BEAKER) (test vxmi=1737) 96.0 % B-TYPE NATRIURETIC FACTOR (BNP)2019-01-21 05:31:00 Test Item Value Reference Range Comments B-TYPE NATRIURETIC PEPTIDE (BEAKER) (test 568 pg/mL 0-100 scbx=035) BASIC METABOLIC [id number] 05:26:00 Test Item Value Reference Range Comments SODIUM (BEAKER) (test 136 meq/L 136-145 dluh=211) POTASSIUM (BEAKER) (test 4.0 meq/L 3.5-5.1 wsfz=772) CHLORIDE (BEAKER) (test 102 meq/L 98-107 aimq=769) CO2 (BEAKER) (test 25 meq/L 22-29 phut=181) BLOOD UREA NITROGEN 40 mg/dL 7-21 (BEAKER) (test ontt=345) CREATININE (BEAKER) (test 1.89 mg/dL 0.57-1.25 pkzt=706) GLUCOSE RANDOM (BEAKER) 83 mg/dL 70-105 (test qvdj=498) CALCIUM (BEAKER) (test 9.2 mg/dL 8.4-10.2 hvhs=355) EGFR (BEAKER) (test 32 mL/min/1.73 sq m ESTIMATED GFR IS NOT kkes=6918) ACCURATE CREATININE CLEARANCE IN PREDICTING GLOMERULAR FILTRATION RATE. ESTIMATED GFR IS NOT APPLICABLE FOR DIALYSIS PATIENTS. CBC W/PLT COUNT & AUTO [id number] 05:13:00 Test Item Value Reference Range Comments WHITE BLOOD CELL COUNT (BEAKER) (test dztf=414) 5.8 K/ L 3.5-10.5 RED BLOOD CELL COUNT (BEAKER) (test njdl=454) 2.59 M/ L 3.93-5.22 HEMOGLOBIN (BEAKER) (test oymv=691) 8.4 GM/DL 11.2-15.7 HEMATOCRIT (BEAKER) (test maln=737) 27.6 % 34.1-44.9 MEAN CORPUSCULAR VOLUME (BEAKER) (test hiyx=925) 106.6 fL 79.4-94.8 MEAN CORPUSCULAR HEMOGLOBIN (BEAKER) (test 32.4 pg 25.6-32.2 fcez=008) MEAN CORPUSCULAR HEMOGLOBIN CONC (BEAKER) (test 30.4 GM/DL 32.2-35.5 sqyf=333) RED CELL DISTRIBUTION WIDTH (BEAKER) (test 12.9 % 11.7-14.4 yshn=012) PLATELET COUNT (BEAKER) (test umbx=256) 254 K/CU MM 150-450 MEAN PLATELET VOLUME (BEAKER) (test bmwg=036) 9.7 fL 9.4-12.3 NUCLEATED RED BLOOD CELLS (BEAKER) (test 0 /100 WBC 0-0 ypir=427) NEUTROPHILS RELATIVE PERCENT (BEAKER) (test 72 % zmby=911) LYMPHOCYTES RELATIVE PERCENT (BEAKER) (test 16 % ekju=255) MONOCYTES RELATIVE PERCENT (BEAKER) (test 6 % gigj=303) EOSINOPHILS RELATIVE PERCENT (BEAKER) (test 5 % lxhr=448) BASOPHILS RELATIVE PERCENT (BEAKER) (test 1 % dipx=753) NEUTROPHILS ABSOLUTE COUNT (BEAKER) (test 4.16 K/ L 1.56-6.13 yasl=229) LYMPHOCYTES ABSOLUTE COUNT (BEAKER) (test 0.91 K/ L 1.18-3.74 uewz=730) MONOCYTES ABSOLUTE COUNT (BEAKER) (test 0.36 K/ L 0.24-0.36 ftzg=532) EOSINOPHILS ABSOLUTE COUNT (BEAKER) (test 0.31 K/ L 0.04-0.36 bhyz=399) BASOPHILS ABSOLUTE COUNT (BEAKER) (test 0.04 K/ L 0.01-0.08 qfmc=517) IMMATURE GRANULOCYTES-RELATIVE PERCENT (BEAKER) 0 % 0-1 (test oljl=4007) [id number] 05:49:00 Test Item Value Reference Range Comments PHOSPHORUS (BEAKER) (test epma=595) 3.9 mg/dL 2.3-4.7 [id number] 05:49:00 Test Item Value Reference Range Comments MAGNESIUM (BEAKER) (test kkwe=341) 2.0 mg/dL 1.6-2.6 BASIC METABOLIC [id number] 05:49:00 Test Item Value Reference Range Comments SODIUM (BEAKER) (test 137 meq/L 136-145 xwym=071) POTASSIUM (BEAKER) (test 4.2 meq/L 3.5-5.1 mjtk=151) CHLORIDE (BEAKER) (test 102 meq/L 98-107 nruk=671) CO2 (BEAKER) (test 27 meq/L 22-29 tnwj=809) BLOOD UREA NITROGEN 45 mg/dL 7-21 (BEAKER) (test lrnj=842) CREATININE (BEAKER) (test 1.94 mg/dL 0.57-1.25 qkgt=119) GLUCOSE RANDOM (BEAKER) 105 mg/dL 70-105 (test cjdn=923) CALCIUM (BEAKER) (test 9.2 mg/dL 8.4-10.2 zwsi=674) EGFR (BEAKER) (test 31 mL/min/1.73 sq m ESTIMATED GFR IS NOT yubh=4503) ACCURATE CREATININE CLEARANCE IN PREDICTING GLOMERULAR FILTRATION RATE. ESTIMATED GFR IS NOT APPLICABLE FOR DIALYSIS PATIENTS. CALCIUM, [id number] 05:41:00 Test Item Value Reference Range Comments CALCIUM IONIZED (BEAKER) (test ukmk=596) 1.22 mmol/L 1.12-1.27 PH, BLOOD (BEAKER) (test ennb=7816) 7.36 B-TYPE NATRIURETIC FACTOR (BNP)2019-01-20 05:33:00 Test Item Value Reference Range Comments B-TYPE NATRIURETIC PEPTIDE (BEAKER) (test 411 pg/mL 0-100 ddpr=503) CBC W/PLT COUNT & AUTO [id number] 05:15:00 Test Item Value Reference Range Comments WHITE BLOOD CELL COUNT (BEAKER) (test gdjj=423) 5.5 K/ L 3.5-10.5 RED BLOOD CELL COUNT (BEAKER) (test pavl=948) 2.46 M/ L 3.93-5.22 HEMOGLOBIN (BEAKER) (test hkqq=297) 8.1 GM/DL 11.2-15.7 HEMATOCRIT (BEAKER) (test msmu=497) 26.4 % 34.1-44.9 MEAN CORPUSCULAR VOLUME (BEAKER) (test iirf=097) 107.3 fL 79.4-94.8 MEAN CORPUSCULAR HEMOGLOBIN (BEAKER) (test 32.9 pg 25.6-32.2 ablc=254) MEAN CORPUSCULAR HEMOGLOBIN CONC (BEAKER) (test 30.7 GM/DL 32.2-35.5 fmrd=205) RED CELL DISTRIBUTION WIDTH (BEAKER) (test 12.8 % 11.7-14.4 hqha=789) PLATELET COUNT (BEAKER) (test upjv=325) 236 K/CU MM 150-450 MEAN PLATELET VOLUME (BEAKER) (test bdka=666) 9.9 fL 9.4-12.3 NUCLEATED RED BLOOD CELLS (BEAKER) (test 0 /100 WBC 0-0 otib=312) NEUTROPHILS RELATIVE PERCENT (BEAKER) (test 71 % qfzd=916) LYMPHOCYTES RELATIVE PERCENT (BEAKER) (test 17 % ceqw=955) MONOCYTES RELATIVE PERCENT (BEAKER) (test 7 % jqtb=072) EOSINOPHILS RELATIVE PERCENT (BEAKER) (test 4 % rqdf=333) BASOPHILS RELATIVE PERCENT (BEAKER) (test 1 % dwdw=410) NEUTROPHILS ABSOLUTE COUNT (BEAKER) (test 3.87 K/ L 1.56-6.13 gten=891) LYMPHOCYTES ABSOLUTE COUNT (BEAKER) (test 0.92 K/ L 1.18-3.74 iytn=672) MONOCYTES ABSOLUTE COUNT (BEAKER) (test 0.38 K/ L 0.24-0.36 rdfw=850) EOSINOPHILS ABSOLUTE COUNT (BEAKER) (test 0.24 K/ L 0.04-0.36 wiir=706) BASOPHILS ABSOLUTE COUNT (BEAKER) (test 0.05 K/ L 0.01-0.08 ioqp=915) IMMATURE GRANULOCYTES-RELATIVE PERCENT (BEAKER) 0 % 0-1 (test obib=3866) OXYGEN SATURATION, [id number] 05:13:00 Test Item Value Reference Range Comments O2 SATURATION (MEASURED) (BEAKER) (test hyjf=1066) 85.5 % CBC W/PLT COUNT & AUTO [id number] 07:13:00 Test Item Value Reference Range Comments WHITE BLOOD CELL COUNT (BEAKER) (test xrvu=249) 5.4 K/ L 3.5-10.5 RED BLOOD CELL COUNT (BEAKER) (test ymuc=141) 2.55 M/ L 3.93-5.22 HEMOGLOBIN (BEAKER) (test ofvb=307) 8.4 GM/DL 11.2-15.7 HEMATOCRIT (BEAKER) (test yeab=387) 26.9 % 34.1-44.9 MEAN CORPUSCULAR VOLUME (BEAKER) (test unae=360) 105.5 fL 79.4-94.8 MEAN CORPUSCULAR HEMOGLOBIN (BEAKER) (test 32.9 pg 25.6-32.2 rrgw=298) MEAN CORPUSCULAR HEMOGLOBIN CONC (BEAKER) (test 31.2 GM/DL 32.2-35.5 idfo=818) RED CELL DISTRIBUTION WIDTH (BEAKER) (test 12.9 % 11.7-14.4 lfsx=221) PLATELET COUNT (BEAKER) (test zytm=093) 251 K/CU MM 150-450 MEAN PLATELET VOLUME (BEAKER) (test ykho=579) 10.3 fL 9.4-12.3 NUCLEATED RED BLOOD CELLS (BEAKER) (test 0 /100 WBC 0-0 ztnz=337) NEUTROPHILS RELATIVE PERCENT (BEAKER) (test 66 % uinm=614) LYMPHOCYTES RELATIVE PERCENT (BEAKER) (test 21 % kafr=704) MONOCYTES RELATIVE PERCENT (BEAKER) (test 7 % sttp=446) EOSINOPHILS RELATIVE PERCENT (BEAKER) (test 4 % eves=688) BASOPHILS RELATIVE PERCENT (BEAKER) (test 1 % ezpe=948) NEUTROPHILS ABSOLUTE COUNT (BEAKER) (test 3.55 K/ L 1.56-6.13 kzjh=314) LYMPHOCYTES ABSOLUTE COUNT (BEAKER) (test 1.14 K/ L 1.18-3.74 elpq=759) MONOCYTES ABSOLUTE COUNT (BEAKER) (test 0.39 K/ L 0.24-0.36 isbe=356) EOSINOPHILS ABSOLUTE COUNT (BEAKER) (test 0.20 K/ L 0.04-0.36 fedg=170) BASOPHILS ABSOLUTE COUNT (BEAKER) (test 0.06 K/ L 0.01-0.08 gtmg=435) IMMATURE GRANULOCYTES-RELATIVE PERCENT (BEAKER) 0 % 0-1 (test bmxi=0826) [id number] 06:22:00 Test Item Value Reference Range Comments PHOSPHORUS (BEAKER) (test ympp=247) 3.8 mg/dL 2.3-4.7 [id number] 06:22:00 Test Item Value Reference Range Comments MAGNESIUM (BEAKER) (test kxid=714) 2.2 mg/dL 1.6-2.6 COMPREHENSIVE METABOLIC [id number] 06:22:00 Test Item Value Reference Range Comments TOTAL PROTEIN (BEAKER) 7.3 gm/dL 6.0-8.3 (test mitq=142) ALBUMIN (BEAKER) (test 3.8 g/dL 3.5-5.0 nytr=9391) ALKALINE PHOSPHATASE 43 U/L 40-150 (BEAKER) (test unwr=851) BILIRUBIN TOTAL (BEAKER) 0.3 mg/dL 0.2-1.2 (test laxh=580) SODIUM (BEAKER) (test 135 meq/L 136-145 dlpm=319) POTASSIUM (BEAKER) (test 4.0 meq/L 3.5-5.1 pnur=410) CHLORIDE (BEAKER) (test 99 meq/L 98-107 ifyt=936) CO2 (BEAKER) (test 31 meq/L 22-29 iutb=345) BLOOD UREA NITROGEN 40 mg/dL 7-21 (BEAKER) (test wfxx=350) CREATININE (BEAKER) (test 1.95 mg/dL 0.57-1.25 puio=665) GLUCOSE RANDOM (BEAKER) 99 mg/dL 70-105 (test ofpf=895) CALCIUM (BEAKER) (test 9.9 mg/dL 8.4-10.2 zgpg=537) AST (SGOT) (BEAKER) (test 15 U/L 5-34 xszm=351) ALT (SGPT) (BEAKER) (test 10 U/L 6-55 ljxj=312) EGFR (BEAKER) (test 31 mL/min/1.73 sq m ESTIMATED GFR IS NOT loya=4938) ACCURATE CREATININE CLEARANCE IN PREDICTING GLOMERULAR FILTRATION RATE. ESTIMATED GFR IS NOT APPLICABLE FOR DIALYSIS PATIENTS. VITAMIN D, [id number] 06:03:00 Test Item Value Reference Range Comments VITAMIN D 25-OH (BEAKER) (test dgcm=7300) 42.3 ng/mL 6.6-49.9 Effective 01/12/2017: Reference Range ChangeNew: 6.6-49.9 ng/mL Previous: 13.0 -47.8 ng/mLRecommended Vitamin D Target Range: 30.0-40.0 ng/mLB-TYPE NATRIURETIC FACTOR (BNP)2019-01-19 05:18:00 Test Item Value Reference Range Comments B-TYPE NATRIURETIC PEPTIDE (BEAKER) (test 490 pg/mL 0-100 uvmx=706) PTH, [id number] 05:16:00 Test Item Value Reference Range Comments PARATHYROID HORMONE INTACT (BEAKER) (test 151.4 pg/mL 8.5-72.5 ffnk=298) CALCIUM, [id number] 04:20:00 Test Item Value Reference Range Comments CALCIUM IONIZED (BEAKER) (test cbac=495) 1.30 mmol/L 1.12-1.27 PH, BLOOD (BEAKER) (test dlal=2350) 7.37 OXYGEN SATURATION, [id number] 04:00:00 Test Item Value Reference Range Comments O2 SATURATION (MEASURED) (BEAKER) (test kpfy=8659) 86.1 % CREATININE, RANDOM [id number] 12:21:00 Test Item Value Reference Range Comments CREATININE URINE (BEAKER) (test utgi=269) 110.5 mg/dL Reference Range: No NormalsPROTEIN, RANDOM [id number] 12:21:00 Test Item Value Reference Range Comments PROTEIN, URINE (BEAKER) (test yjka=6920) 14 mg/dL 0-14 SODIUM, RANDOM [id number] 12:21:00 Test Item Value Reference Range Comments SODIUM URINE (BEAKER) (test hcpi=077) 34 meq/L Reference Range: No NormalsCALCIUM, [id number] 10:17:00 Test Item Value Reference Range Comments CALCIUM IONIZED (BEAKER) (test qcez=702) 1.29 mmol/L 1.12-1.27 PH, BLOOD (BEAKER) (test gmnr=0405) 7.31 OXYGEN SATURATION, [id number] 10:16:00 Test Item Value Reference Range Comments O2 SATURATION (MEASURED) (BEAKER) (test gvaq=9669) 69.6 % POCT-GLUCOSE [id number] 08:28:00 Test Item Value Reference Range Comments POC-GLUCOSE METER (BEAKER) 90 mg/dL 70-[address] [facility] [address] [facility] (test hxzm=3868) [facility] [address] BASIC METABOLIC [id number] 07:28:00 Test Item Value Reference Range Comments SODIUM (BEAKER) (test 134 meq/L 136-145 fseo=828) POTASSIUM (BEAKER) (test 4.2 meq/L 3.5-5.1 ttvb=932) CHLORIDE (BEAKER) (test 100 meq/L 98-107 ktkm=367) CO2 (BEAKER) (test 26 meq/L 22-29 truq=677) BLOOD UREA NITROGEN 43 mg/dL 7-21 (BEAKER) (test nnln=080) CREATININE (BEAKER) (test 1.95 mg/dL 0.57-1.25 ntkv=630) GLUCOSE RANDOM (BEAKER) 130 mg/dL 70-105 (test vrwp=646) CALCIUM (BEAKER) (test 9.8 mg/dL 8.4-10.2 jztf=682) EGFR (BEAKER) (test 31 mL/min/1.73 sq m ESTIMATED GFR IS NOT slxr=6506) ACCURATE CREATININE CLEARANCE IN PREDICTING GLOMERULAR FILTRATION RATE. ESTIMATED GFR IS NOT APPLICABLE FOR DIALYSIS PATIENTS. URIC [id number] 07:10:00 Test Item Value Reference Range Comments URIC ACID (BEAKER) (test kifp=898) 6.4 mg/dL 2.6-7.2 [id number] 07:10:00 Test Item Value Reference Range Comments MAGNESIUM (BEAKER) (test zryk=457) 2.2 mg/dL 1.6-2.6 [id number] 07:10:00 Test Item Value Reference Range Comments PHOSPHORUS (BEAKER) (test gjgz=195) 3.7 mg/dL 2.3-4.7 CREATINE KINASE (CK)2019-01-18 07:10:00 Test Item Value Reference Range Comments CREATINE KINASE TOTAL (BEAKER) (test zijn=821) 46 U/L 29-200 B-TYPE NATRIURETIC FACTOR (BNP)2019-01-18 06:18:00 Test Item Value Reference Range Comments B-TYPE NATRIURETIC PEPTIDE (BEAKER) (test 723 pg/mL 0-100 grim=028) CBC W/PLT COUNT & AUTO [id number] 05:54:00 Test Item Value Reference Range Comments WHITE BLOOD CELL COUNT (BEAKER) (test wvlf=794) 5.6 K/ L 3.5-10.5 RED BLOOD CELL COUNT (BEAKER) (test lrst=407) 2.59 M/ L 3.93-5.22 HEMOGLOBIN (BEAKER) (test gvob=715) 8.5 GM/DL 11.2-15.7 HEMATOCRIT (BEAKER) (test ukgp=400) 27.4 % 34.1-44.9 MEAN CORPUSCULAR VOLUME (BEAKER) (test ezcn=606) 105.8 fL 79.4-94.8 MEAN CORPUSCULAR HEMOGLOBIN (BEAKER) (test 32.8 pg 25.6-32.2 dgub=346) MEAN CORPUSCULAR HEMOGLOBIN CONC (BEAKER) (test 31.0 GM/DL 32.2-35.5 alem=490) RED CELL DISTRIBUTION WIDTH (BEAKER) (test 12.7 % 11.7-14.4 tryq=966) PLATELET COUNT (BEAKER) (test jxiq=040) 240 K/CU MM 150-450 MEAN PLATELET VOLUME (BEAKER) (test eiso=640) 10.2 fL 9.4-12.3 NUCLEATED RED BLOOD CELLS (BEAKER) (test 0 /100 WBC 0-0 tygv=927) NEUTROPHILS RELATIVE PERCENT (BEAKER) (test 71 % vlux=222) LYMPHOCYTES RELATIVE PERCENT (BEAKER) (test 17 % krym=940) MONOCYTES RELATIVE PERCENT (BEAKER) (test 8 % onme=186) EOSINOPHILS RELATIVE PERCENT (BEAKER) (test 2 % axev=513) BASOPHILS RELATIVE PERCENT (BEAKER) (test 1 % dzrf=794) NEUTROPHILS ABSOLUTE COUNT (BEAKER) (test 4.02 K/ L 1.56-6.13 wlin=990) LYMPHOCYTES ABSOLUTE COUNT (BEAKER) (test 0.97 K/ L 1.18-3.74 onej=752) MONOCYTES ABSOLUTE COUNT (BEAKER) (test 0.46 K/ L 0.24-0.36 pcdf=754) EOSINOPHILS ABSOLUTE COUNT (BEAKER) (test 0.12 K/ L 0.04-0.36 zemm=230) BASOPHILS ABSOLUTE COUNT (BEAKER) (test 0.04 K/ L 0.01-0.08 wdvh=552) IMMATURE GRANULOCYTES-RELATIVE PERCENT (BEAKER) 0 % 0-1 (test bymc=9449) U/S, RENAL, [id number] 05:23:00H- Dr. Levy/ Marcus Reddy. chano is in network. ppo no referral needed 07/2018cpt 11503 no auth required Reason for exam:->AKIShould this be performed at the bedside?-> YesFINAL REPORT U/S, RENAL, COMPLETE CLINICAL INDICATION : DARRYL COMPARISON: CTA chest abdomen pelvis dated 10/31/2018. TECHNIQUE: The kidneys and urinary bladder were evaluated usingreal time meade scale and color Doppler sonography. FINDINGS:Right kidney: Size: 10.4 x 4.6 x 5.9 cm. Parenchyma: Normal echogenicity. Interpole cyst measuring 2.2 x 2.2 x 2.5 cm.. No stones. Hydronephrosis: None. Left kidney: Size: 9.3 x 4.0 x 4.9 cm. Parenchyma: Lower pole cortical scarring as seen on recent CTA chest abdomen pelvis.. Multiple hypoechoic cysts the largest of which is in the lower pole measuring 1.4 x 0.8 x 1.2 cm.. No stones. Hydronephrosis: None. Renal Vasculature: Doppler interrogation reveals preserved vascular flow in the main renal arteries and veinsbilaterally. Urinary bladder: Not well-seen secondary to poor acoustic windowing. Additional findings: Multiple echogenic foci in the spleen the largest of which measures 3.5 x 3.6 x 3.6 cm, as seen on recent CT chest abdomen pelvis, possibly representing hemangiomas however incompletely characterized on this patient. IMPRESSION: Left lower pole cortical scarring. Bilateral renal cysts. Bladder not well-seen secondary to poor acoustic windowing. Multiple echogenic foci in the spleen the largestof which measures up to 3.6 cm, possibly representing hemangiomas however incompletely characterizedon this patient. Recommend further evaluation with MRI. Signed: Maryana Spann MDReport Verified Date/Time: 01/18/2019 05:23:17 RAD , CHEST, 1 VIEW, NON [id number] 04:49:00[facility]- Dr. Levy/ Marcus Reddy. chano is in network. ppo no referral needed 07/2018cpt 58103 no auth required Reason for exam:->CHFShould this be performed at the bedside?-> YesFINAL REPORT RAD, CHEST, 1 VIEW, NON DEPT INDICATION: CHF COMPARISON: Prior day's exam FINDINGS: Portable frontal view of the chest. IMPRESSION: Support Lines: Stable. Lungs and pleura: Unchanged airspace and pleural opacities. No pneumothorax.Heart and mediastinum: Stable contours. Stable surgical changes.Additional findings: None. Signed: Maryana Spann Verified Date/Time: 01/18/2019 04:49:09 HEMOGLOBIN [id number] 22:46 :00 Test Item Value Reference Range Comments HEMOGLOBIN A1C (BEAKER) (test ptpe=827) 5.1 % 4.3-6.1 POCT-GLUCOSE [id number] 21:47:00 Test Item Value Reference Range Comments POC-GLUCOSE METER (BEAKER) 163 mg/dL 70-[address] [facility] [address] (test cfqm=5692) [facility] [address] CBC W/PLT COUNT & AUTO [id number] 20:11:00 Test Item Value Reference Range Comments WHITE BLOOD CELL COUNT (BEAKER) (test qfry=521) 7.8 K/ L 3.5-10.5 RED BLOOD CELL COUNT (BEAKER) (test szgs=274) 3.01 M/ L 3.93-5.22 HEMOGLOBIN (BEAKER) (test djjo=711) 10.0 GM/DL 11.2-15.7 HEMATOCRIT (BEAKER) (test elsu=175) 31.4 % 34.1-44.9 MEAN CORPUSCULAR VOLUME (BEAKER) (test mdce=097) 104.3 fL 79.4-94.8 MEAN CORPUSCULAR HEMOGLOBIN (BEAKER) (test 33.2 pg 25.6-32.2 masu=092) MEAN CORPUSCULAR HEMOGLOBIN CONC (BEAKER) (test 31.8 GM/DL 32.2-35.5 scdu=414) RED CELL DISTRIBUTION WIDTH (BEAKER) (test 12.9 % 11.7-14.4 zhux=262) PLATELET COUNT (BEAKER) (test uvtp=457) 298 K/CU MM 150-450 MEAN PLATELET VOLUME (BEAKER) (test lkue=352) 9.9 fL 9.4-12.3 NUCLEATED RED BLOOD CELLS (BEAKER) (test 0 /100 WBC 0-0 zcgx=384) NEUTROPHILS RELATIVE PERCENT (BEAKER) (test 82 % mvro=114) LYMPHOCYTES RELATIVE PERCENT (BEAKER) (test 11 % sueu=245) MONOCYTES RELATIVE PERCENT (BEAKER) (test 5 % lgxn=470) EOSINOPHILS RELATIVE PERCENT (BEAKER) (test 1 % cyco=296) BASOPHILS RELATIVE PERCENT (BEAKER) (test 1 % qqli=370) NEUTROPHILS ABSOLUTE COUNT (BEAKER) (test 6.35 K/ L 1.56-6.13 rdvn=333) LYMPHOCYTES ABSOLUTE COUNT (BEAKER) (test 0.87 K/ L 1.18-3.74 ewid=588) MONOCYTES ABSOLUTE COUNT (BEAKER) (test 0.39 K/ L 0.24-0.36 zqkj=209) EOSINOPHILS ABSOLUTE COUNT (BEAKER) (test 0.08 K/ L 0.04-0.36 zheg=124) BASOPHILS ABSOLUTE COUNT (BEAKER) (test 0.04 K/ L 0.01-0.08 zlde=960) IMMATURE GRANULOCYTES-RELATIVE PERCENT (BEAKER) 0 % 0-1 (test tuvl=0680) POCT-GLUCOSE [id number] 18:09:00 Test Item Value Reference Range Comments POC-GLUCOSE METER (BEAKER) 140 mg/dL 70-110 TESTED AT [address] (test ckbc=8637) [facility] [address] OXYGEN SATURATION, [id number] 15:05:00 Test Item Value Reference Range Comments O2 SATURATION (MEASURED) (BEAKER) (test vcul=8374) 43.7 % [id number] 13:15:00 Test Item Value Reference Range Comments FERRITIN (BEAKER) (test ygyv=311) 257 ng/mL 5-275 VITAMIN B12 AND [id number] 13:15:00 Test Item Value Reference Range Comments VITAMIN B12 (BEAKER) (test iipm=217) 1120 pg/mL 213-816 FOLATE (BEAKER) (test gheb=310) 18.7 ng/mL >=7.0 COMPREHENSIVE METABOLIC [id number] 12:50:00 Test Item Value Reference Range Comments TOTAL PROTEIN (BEAKER) 8.3 gm/dL 6.0-8.3 (test eold=646) ALBUMIN (BEAKER) (test 4.3 g/dL 3.5-5.0 afrv=3271) ALKALINE PHOSPHATASE 52 U/L 40-150 (BEAKER) (test ikgs=565) BILIRUBIN TOTAL (BEAKER) 0.3 mg/dL 0.2-1.2 (test dkin=915) SODIUM (BEAKER) (test 137 meq/L 136-145 qdql=950) POTASSIUM (BEAKER) (test 4.9 meq/L 3.5-5.1 hcgk=759) CHLORIDE (BEAKER) (test 99 meq/L 98-107 lwqw=302) CO2 (BEAKER) (test 30 meq/L 22-29 mmxi=214) BLOOD UREA NITROGEN 44 mg/dL 7-21 (BEAKER) (test faej=520) CREATININE (BEAKER) (test 2.12 mg/dL 0.57-1.25 bmip=962) GLUCOSE RANDOM (BEAKER) 110 mg/dL 70-105 (test uvfs=106) CALCIUM (BEAKER) (test 10.6 mg/dL 8.4-10.2 yspt=323) AST (SGOT) (BEAKER) (test 18 U/L 5-34 hhee=012) ALT (SGPT) (BEAKER) (test 14 U/L 6-55 tuol=848) EGFR (BEAKER) (test 28 mL/min/1.73 sq m ESTIMATED GFR IS NOT xjsi=0610) ACCURATE CREATININE CLEARANCE IN PREDICTING GLOMERULAR FILTRATION RATE. ESTIMATED GFR IS NOT APPLICABLE FOR DIALYSIS PATIENTS. B-TYPE NATRIURETIC FACTOR (BNP)2019-01-17 12:45:00 Test Item Value Reference Range Comments B-TYPE NATRIURETIC PEPTIDE (BEAKER) (test 939 pg/mL 0-100 qzqs=072) IRON, TIBC, % SAT. (WITHOUT FERRITIN)2019-01-17 12:39:00 Test Item Value Reference Range Comments IRON (BEAKER) (test rrly=846) 56.0 ug/dL 40.0-160.0 TOTAL IRON BINDING CAPACITY (BEAKER) (test 264 ug/dL 250-450 gpnl=971) IRON % SATURATION (2) (BEAKER) (test wwzs=0322) 21 % 20-55 OXYGEN SATURATION, [id number] 12:23:00 Test Item Value Reference Range Comments O2 SATURATION (MEASURED) (BEAKER) (test dspo=2150) 20.5 % CBC W/PLT COUNT & AUTO [id number] 12:17:00 Test Item Value Reference Range Comments WHITE BLOOD CELL COUNT (BEAKER) (test abss=193) 6.1 K/ L 3.5-10.5 RED BLOOD CELL COUNT (BEAKER) (test bxey=716) 3.09 M/ L 3.93-5.22 HEMOGLOBIN (BEAKER) (test mfmt=106) 10.1 GM/DL 11.2-15.7 HEMATOCRIT (BEAKER) (test vebj=965) 32.5 % 34.1-44.9 MEAN CORPUSCULAR VOLUME (BEAKER) (test cvfe=299) 105.2 fL 79.4-94.8 MEAN CORPUSCULAR HEMOGLOBIN (BEAKER) (test 32.7 pg 25.6-32.2 twvc=510) MEAN CORPUSCULAR HEMOGLOBIN CONC (BEAKER) (test 31.1 GM/DL 32.2-35.5 bkot=625) RED CELL DISTRIBUTION WIDTH (BEAKER) (test 12.9 % 11.7-14.4 yucx=157) PLATELET COUNT (BEAKER) (test ouxd=175) 279 K/CU MM 150-450 MEAN PLATELET VOLUME (BEAKER) (test xsqw=832) 10.0 fL 9.4-12.3 NUCLEATED RED BLOOD CELLS (BEAKER) (test 0 /100 WBC 0-0 plzx=396) NEUTROPHILS RELATIVE PERCENT (BEAKER) (test 81 % plln=572) LYMPHOCYTES RELATIVE PERCENT (BEAKER) (test 11 % yran=687) MONOCYTES RELATIVE PERCENT (BEAKER) (test 6 % jzqd=971) EOSINOPHILS RELATIVE PERCENT (BEAKER) (test 2 % suxs=560) BASOPHILS RELATIVE PERCENT (BEAKER) (test 1 % wchn=274) NEUTROPHILS ABSOLUTE COUNT (BEAKER) (test 4.94 K/ L 1.56-6.13 nlyf=738) LYMPHOCYTES ABSOLUTE COUNT (BEAKER) (test 0.67 K/ L 1.18-3.74 sgpf=858) MONOCYTES ABSOLUTE COUNT (BEAKER) (test 0.35 K/ L 0.24-0.36 vnle=059) EOSINOPHILS ABSOLUTE COUNT (BEAKER) (test 0.10 K/ L 0.04-0.36 kzuu=839) BASOPHILS ABSOLUTE COUNT (BEAKER) (test 0.05 K/ L 0.01-0.08 hqva=569) IMMATURE GRANULOCYTES-RELATIVE PERCENT (BEAKER) 0 % 0-1 (test thoe=1867) CT, CTA, [id number] 18:12:00[facility]- Dr. Levy/ Marcus Reddy. chano is in network. ppo no referral needed 07/2018cpt 56044 no auth required 2018Addendum BeginsREPORT STATUS:A Addendum: I agree with the previously described non vascular findings. Signed: George Rincon MDReport Verified Date/Time: 11/01/2018 18:12:19 Reading Location: [place] [address] Angio Body Reading RoomAddendum EndsFINAL REPORT CT angiography of the thoracoabdominal aorta and pelvic arteries, 31 October 2018 INDICATION: This is a73 year old female with with endostent placement [...] Patient's wish is respected, however, as a result,significant beam hardening and streak artefact is present. [...] normal atrioventricular and ventriculoarterial concordance, and systemic andpulmonary venous return. The left ventricle is substantially enlarged. Left atrial enlargement is identified. Coronary artery origins are normal and scattered calcification is identified in the LAD andLCx in the RCA territory. The ascending thoracic aorta is relatively unremarkable, as well as the transverse arch. Arch vessel branching pattern is normal and the visualised arch vessels are seen to bewidely patent proximally. The left common carotid artery [...] iliac arteries. The endostent and the abdominal aortais well-positioned. The common iliac, external iliac, and the common femoral arteries, bilaterally, are patent. However, moderate circumferential calcification is identified throughout the course of the pelvic arteries. No obstructive lesion is identified. The origin of the right external iliac arteryis tortuous. Diffuse calcification is seen throughout the [...] ascending thoracic aorta; 3.9 x 3.8 cm atthe mid ascending aorta; 3.6 cm at the [...] cm in the infrarenal level. In 2017 [facility] examination, the maximum diameter at the diaphragmatic hiatus was 5.8 x 4.7 cm, remeasurement, confirming substantial enlargementNON-VASCULAR: The visualised thyroid gland is unremarkable. The [...] However, distal to the endostent, continued dilation ofthe aorta is identified near the diaphragmatic hiatus with dimensions as described above. Due to thecontinued dilation, some contrast is seen outside the stent, inside the [place] aorta (essentially present Type I endoleak). In [...] An addendum will be dictated by the Contracts Law Professor Radiologist regarding the nonvascular findings. Signed: Bryan Mahajan MDReport Verified Date/Time:10/31/2018 16:01:37 Reading Location: [place] [id number] Cardiology MRI CT, CTA [id number] 18:12:00[facility]- Dr. Levy/ Marcus Reddy. chano is in network. ppo no referral needed 07/2018cpt 59809 no auth required 10/2018Addendum BeginsREPORT STATUS:A Addendum: I agree with the previously described non vascular findings. Signed: George Rincon MDReport Verified Date/Time: 11/01/2018 18:12:19 Reading Location: [facility] [address] Angio Body Reading RoomAddendum EndsFINAL REPORT CT angiography of the thoracoabdominal aorta and pelvic arteries, 31 October 2018 INDICATION: This is a73 year old female with with endostent placement [...] Patient's wish is respected, however, as a result,significant beam hardening and streak artefact is present. [...] normal atrioventricular and ventriculoarterial concordance, and systemic andpulmonary venous return. The left ventricle is substantially enlarged. Left atrial enlargement is identified. Coronary artery origins are normal and scattered calcification is identified in the LAD andLCx in the RCA territory. The ascending thoracic aorta is relatively unremarkable, as well as the transverse arch. Arch vessel branching pattern is normal and the visualised arch vessels are seen to bewidely patent proximally. The left common carotid artery [...] iliac arteries. The endostent and the abdominal aortais well-positioned. The common iliac, external iliac, and the common femoral arteries, bilaterally, are patent. However, moderate circumferential calcification is identified throughout the course of the pelvic arteries. No obstructive lesion is identified. The origin of the right external iliac arteryis tortuous. Diffuse calcification is seen throughout the [...] ascending thoracic aorta; 3.9 x 3.8 cm atthe mid ascending aorta; 3.6 cm at the [...] 5.8 x 4.7 cm, remeasurement, confirming substantial enlargementNON-VASCULAR: The visualised thyroid gland is unremarkable. The [...] However, distal to the endostent, continued dilation ofthe aorta is identified near the diaphragmatic hiatus with dimensions as described above. Due to thecontinued dilation, some contrast is seen outside the stent, inside the [place] aorta (essentially present Type I endoleak). In [...] An addendum will be dictated by the Contracts Law Professor Radiologist regarding the nonvascular findings. Signed: Bryan Mahajaneport Verified Date/Time:10/31/2018 16:01:37 Reading Location: [place] [address] Cardiology MRI POCT- [id number] 12:24:00 Test Item Value Reference Range Comments POC-CREATININE (BEAKER) 1.6 mg/dL 0.6-1.[address] [facility] [address] (test iqgs=2248) [facility] [address] POC-EGFR (BEAKER) (test 38 mL/min/1.73M2 puyv=3497) B-TYPE NATRIURETIC FACTOR (BNP)2018-10-17 12:58:00 Test Item Value Reference Range Comments B-TYPE NATRIURETIC PEPTIDE (BEAKER) (test 3381 pg/mL 0-100 zpwl=033) BASIC METABOLIC [id number] 12:52:00 Test Item Value Reference Range Comments SODIUM (BEAKER) (test 138 meq/L 136-145 nqae=798) POTASSIUM (BEAKER) (test 3.6 meq/L 3.5-5.1 mzqj=273) CHLORIDE (BEAKER) (test 100 meq/L 98-107 zdpb=314) CO2 (BEAKER) (test 30 meq/L 22-29 amgq=713) BLOOD UREA NITROGEN 21 mg/dL 7-21 (BEAKER) (test nmzr=661) CREATININE (BEAKER) (test 1.49 mg/dL 0.57-1.25 vipl=011) GLUCOSE RANDOM (BEAKER) 182 mg/dL 70-105 (test rnsc=726) CALCIUM (BEAKER) (test 9.7 mg/dL 8.4-10.2 qqua=305) EGFR (BEAKER) (test 42 mL/min/1.73 sq m ESTIMATED GFR IS NOT olyo=5944) ACCURATE CREATININE CLEARANCE IN PREDICTING GLOMERULAR FILTRATION RATE. ESTIMATED GFR IS NOT APPLICABLE FOR DIALYSIS PATIENTS. CBC W/PLT COUNT & AUTO [id number] 12:31:00 Test Item Value Reference Range Comments WHITE BLOOD CELL COUNT (BEAKER) (test hcsr=511) 5.9 K/ L 3.5-10.5 RED BLOOD CELL COUNT (BEAKER) (test nhfe=870) 2.76 M/ L 3.93-5.22 HEMOGLOBIN (BEAKER) (test lfmz=831) 8.9 GM/DL 11.2-15.7 HEMATOCRIT (BEAKER) (test mcgk=642) 28.3 % 34.1-44.9 MEAN CORPUSCULAR VOLUME (BEAKER) (test qvjz=702) 102.5 fL 79.4-94.8 MEAN CORPUSCULAR HEMOGLOBIN (BEAKER) (test 32.2 pg 25.6-32.2 wntq=701) MEAN CORPUSCULAR HEMOGLOBIN CONC (BEAKER) (test 31.4 GM/DL 32.2-35.5 lxbk=892) RED CELL DISTRIBUTION WIDTH (BEAKER) (test 12.8 % 11.7-14.4 zmol=825) PLATELET COUNT (BEAKER) (test acif=264) 226 K/CU MM 150-450 MEAN PLATELET VOLUME (BEAKER) (test qikn=854) 9.9 fL 9.4-12.3 NUCLEATED RED BLOOD CELLS (BEAKER) (test 0 /100 WBC 0-0 vppw=779) NEUTROPHILS RELATIVE PERCENT (BEAKER) (test 80 % cxmd=920) LYMPHOCYTES RELATIVE PERCENT (BEAKER) (test 12 % vbas=303) MONOCYTES RELATIVE PERCENT (BEAKER) (test 5 % nhyl=305) EOSINOPHILS RELATIVE PERCENT (BEAKER) (test 2 % cvff=551) BASOPHILS RELATIVE PERCENT (BEAKER) (test 1 % nbom=172) NEUTROPHILS ABSOLUTE COUNT (BEAKER) (test 4.75 K/ L 1.56-6.13 xtcm=650) LYMPHOCYTES ABSOLUTE COUNT (BEAKER) (test 0.71 K/ L 1.18-3.74 piac=831) MONOCYTES ABSOLUTE COUNT (BEAKER) (test 0.31 K/ L 0.24-0.36 snfi=074) EOSINOPHILS ABSOLUTE COUNT (BEAKER) (test 0.09 K/ L 0.04-0.36 kcdw=137) BASOPHILS ABSOLUTE COUNT (BEAKER) (test 0.05 K/ L 0.01-0.08 jzvl=820) IMMATURE GRANULOCYTES-RELATIVE PERCENT (BEAKER) 0 % 0-1 (test cgvp=6588) HEMOGLOBIN [id number] 13:20:00 Test Item Value Reference Range Comments HEMOGLOBIN A1C (BEAKER) (test solb=054) 5.0 % 4.3-6.1 TSH/FREE T4 IF [id number] 11:57:00 Test Item Value Reference Range Comments THYROID STIMULATING HORMONE (BEAKER) (test 0.46 uIU/mL 0.35-4.94 fsce=053) B-TYPE NATRIURETIC FACTOR (BNP)2018-09-13 11:43:00 Test Item Value Reference Range Comments B-TYPE NATRIURETIC PEPTIDE (BEAKER) (test 2747 pg/mL 0-100 mmpw=926) URIC [id number] 11:37:00 Test Item Value Reference Range Comments URIC ACID (BEAKER) (test hgtx=618) 5.5 mg/dL 2.6-7.2 [id number] 11:37:00 Test Item Value Reference Range Comments MAGNESIUM (BEAKER) (test xwid=090) 2.0 mg/dL 1.6-2.6 COMPREHENSIVE METABOLIC [id number] 11:37:00 Test Item Value Reference Range Comments TOTAL PROTEIN (BEAKER) 7.6 gm/dL 6.0-8.3 (test jjnx=782) ALBUMIN (BEAKER) (test 3.9 g/dL 3.5-5.0 ipvb=6522) ALKALINE PHOSPHATASE 78 U/L 40-150 (BEAKER) (test mzkg=518) BILIRUBIN TOTAL (BEAKER) 0.6 mg/dL 0.2-1.2 (test btge=223) SODIUM (BEAKER) (test 139 meq/L 136-145 wplw=042) POTASSIUM (BEAKER) (test 4.4 meq/L 3.5-5.1 buzi=611) CHLORIDE (BEAKER) (test 98 meq/L 98-107 brgi=066) CO2 (BEAKER) (test 34 meq/L 22-29 mcvk=543) BLOOD UREA NITROGEN 17 mg/dL 7-21 (BEAKER) (test phhs=033) CREATININE (BEAKER) (test 1.37 mg/dL 0.57-1.25 bkfu=946) GLUCOSE RANDOM (BEAKER) 115 mg/dL 70-105 (test vopw=060) CALCIUM (BEAKER) (test 10.0 mg/dL 8.4-10.2 ubfd=794) AST (SGOT) (BEAKER) (test 20 U/L 5-34 tcyg=012) ALT (SGPT) (BEAKER) (test 16 U/L 6-55 duzw=017) EGFR (BEAKER) (test 46 mL/min/1.73 sq m ESTIMATED GFR IS NOT fktg=6123) ACCURATE CREATININE CLEARANCE IN PREDICTING GLOMERULAR FILTRATION RATE. ESTIMATED GFR IS NOT APPLICABLE FOR DIALYSIS PATIENTS. LIPID [id number] 11:37:00 Test Item Value Reference Range Comments TRIGLYCERIDES (BEAKER) (test lrua=858) 82 mg/dL CHOLESTEROL (BEAKER) (test wpqe=086) 185 mg/dL HDL CHOLESTEROL (BEAKER) (test mgrs=202) 111 mg/dL LDL CHOLESTEROL CALCULATED (BEAKER) (test 58 mg/dL xqsm=254) Triglyceride Reference Range: Low Risk <150 Borderline 150- 199 High Risk 200-499 Very High Risk >=500Cholesterol Reference Range: Low Risk <200 Borderline 200-239 High Risk > 240HDL Cholesterol Reference Range: Low Risk >=60 High Risk <40LDL Cholesterol Reference Range: Optimal <100 Near Optimal 100-129 Borderline 130-159 High 160-189 Very High >=[id number] 11:35:00 Test Item Value Reference Range Comments PREALBUMIN (BEAKER) (test srpy=337) 19 mg/dL 14-45 PROTHROMBIN [id number] 11:24:00 Test Item Value Reference Range Comments PROTIME (BEAKER) (test ddlw=449) 13.3 seconds 11.9-14.2 INR (BEAKER) (test iolv=145) 1.1 <=5.9 Effective 08/30/2018: PT Reference Range ChangeNew: 11.9-14.2 Previous: 11.7- 14.7RECOMMENDED COUMADIN/WARFARIN INR THERAPY RANGESSTANDARD DOSE: 2.0-3.0 Includes: PROPHYLAXIS for venous thrombosis, systemic embolization; TREATMENT for venous thrombosis and/or pulmonary embolus.HIGH RISK: Target INR is2.5-3.5 for patients wiht mechanical heart valves.CBC W/PLT COUNT & AUTO [id number] 11:17:00 Test Item Value Reference Range Comments WHITE BLOOD CELL COUNT (BEAKER) (test puqh=974) 6.5 K/ L 3.5-10.5 RED BLOOD CELL COUNT (BEAKER) (test fydh=906) 3.02 M/ L 3.93-5.22 HEMOGLOBIN (BEAKER) (test vzjm=681) 9.7 GM/DL 11.2-15.7 HEMATOCRIT (BEAKER) (test yfjf=733) 31.1 % 34.1-44.9 MEAN CORPUSCULAR VOLUME (BEAKER) (test zvmg=590) 103.0 fL 79.4-94.8 MEAN CORPUSCULAR HEMOGLOBIN (BEAKER) (test 32.1 pg 25.6-32.2 bibg=493) MEAN CORPUSCULAR HEMOGLOBIN CONC (BEAKER) (test 31.2 GM/DL 32.2-35.5 kbtk=509) RED CELL DISTRIBUTION WIDTH (BEAKER) (test 13.0 % 11.7-14.4 qgkn=544) PLATELET COUNT (BEAKER) (test nkxn=809) 239 K/CU MM 150-450 MEAN PLATELET VOLUME (BEAKER) (test fjyh=353) 9.4 fL 9.4-12.3 NUCLEATED RED BLOOD CELLS (BEAKER) (test 0 /100 WBC 0-0 nuxp=891) NEUTROPHILS RELATIVE PERCENT (BEAKER) (test 81 % fwxi=267) LYMPHOCYTES RELATIVE PERCENT (BEAKER) (test 10 % fyzp=754) MONOCYTES RELATIVE PERCENT (BEAKER) (test 6 % gbvu=601) EOSINOPHILS RELATIVE PERCENT (BEAKER) (test 2 % bkgk=028) BASOPHILS RELATIVE PERCENT (BEAKER) (test 1 % fsvz=992) NEUTROPHILS ABSOLUTE COUNT (BEAKER) (test 5.23 K/ L 1.56-6.13 cuma=435) LYMPHOCYTES ABSOLUTE COUNT (BEAKER) (test 0.65 K/ L 1.18-3.74 ftnk=557) MONOCYTES ABSOLUTE COUNT (BEAKER) (test 0.39 K/ L 0.24-0.36 ptps=754) EOSINOPHILS ABSOLUTE COUNT (BEAKER) (test 0.13 K/ L 0.04-0.36 kuim=442) BASOPHILS ABSOLUTE COUNT (BEAKER) (test 0.05 K/ L 0.01-0.08 snzk=147) IMMATURE GRANULOCYTES-RELATIVE PERCENT (BEAKER) 0 % 0-1 (test ygzz=8405) POCT-GLUCOSE [id number] 12:29:00 Test Item Value Reference Range Comments POC-GLUCOSE METER (BEAKER) 221 mg/dL 70-[address] [facility] [address] (test tbvs=6182) [facility] [address] POCT-GLUCOSE [id number] 09:00:00 Test Item Value Reference Range Comments POC-GLUCOSE METER (BEAKER) 135 mg/dL 70-110 TESTED AT [address] (test enmb=9358) [facility] [address] RAD, CHEST, 1 VIEW, NON [id number] 08:57:00Reason for exam:->post opShould this be performed [...] Robles Verified Date/Time: 07/22/2018 08:57:17 Reading Location: [address] Neuro Reading Room Electronicallysigned by: TREY ROBLES MD on 07/22/2018 08:57 [id number] 07:51:00 Test Item Value Reference Range Comments PHOSPHORUS (BEAKER) (test wcyt=842) 3.9 mg/dL 2.3-4.7 [id number] 07:51:00 Test Item Value Reference Range Comments MAGNESIUM (BEAKER) (test jxle=261) 1.7 mg/dL 1.6-2.6 BASIC METABOLIC [id number] 07:51:00 Test Item Value Reference Range Comments SODIUM (BEAKER) (test 139 meq/L 136-145 eppn=447) POTASSIUM (BEAKER) (test 4.4 meq/L 3.5-5.1 jlsv=368) CHLORIDE (BEAKER) (test 102 meq/L 98-107 cgwv=682) CO2 (BEAKER) (test 30 meq/L 22-29 ppsc=069) BLOOD UREA NITROGEN 23 mg/dL 7-21 (BEAKER) (test nblq=920) CREATININE (BEAKER) (test 1.40 mg/dL 0.57-1.25 cuxa=882) GLUCOSE RANDOM (BEAKER) 139 mg/dL 70-105 (test grei=764) CALCIUM (BEAKER) (test 8.8 mg/dL 8.4-10.2 hzgs=025) EGFR (BEAKER) (test 45 mL/min/1.73 sq m ESTIMATED GFR IS NOT zimv=5447) ACCURATE CREATININE CLEARANCE IN PREDICTING GLOMERULAR FILTRATION RATE. ESTIMATED GFR IS NOT APPLICABLE FOR DIALYSIS PATIENTS. [id number] 05:36:00 Test Item Value Reference Range Comments PARTIAL THROMBOPLASTIN TIME (BEAKER) (test 44.5 seconds 22.5-36.0 zmli=634) CBC (HEMOGRAM ONLY)2018-07-22 05:24:00 Test Item Value Reference Range Comments WHITE BLOOD CELL COUNT (BEAKER) (test whkb=158) 6.6 K/ L 3.5-10.5 RED BLOOD CELL COUNT (BEAKER) (test hcfw=360) 2.45 M/ L 3.93-5.22 HEMOGLOBIN (BEAKER) (test tfsy=330) 7.7 GM/DL 11.2-15.7 HEMATOCRIT (BEAKER) (test dzik=788) 26.1 % 34.1-44.9 MEAN CORPUSCULAR VOLUME (BEAKER) (test uvce=752) 106.5 fL 79.4-94.8 MEAN CORPUSCULAR HEMOGLOBIN (BEAKER) (test 31.4 pg 25.6-32.2 xjtx=648) MEAN CORPUSCULAR HEMOGLOBIN CONC (BEAKER) (test 29.5 GM/DL 32.2-35.5 mchv=516) RED CELL DISTRIBUTION WIDTH (BEAKER) (test 18.0 % 11.7-14.4 muqx=520) PLATELET COUNT (BEAKER) (test imgy=667) 227 K/CU MM 150-450 MEAN PLATELET VOLUME (BEAKER) (test ooqc=329) 10.0 fL 9.4-12.3 NUCLEATED RED BLOOD CELLS (BEAKER) (test 0 /100 WBC 0-0 umel=722) POCT-GLUCOSE [id number] 21:36:00 Test Item Value Reference Range Comments POC-GLUCOSE METER (BEAKER) 283 mg/dL 70-110 TESTED AT [address] (test vvew=6594) [place] [id number] POCT-GLUCOSE [id number] 18:26:00 Test Item Value Reference Range Comments POC-GLUCOSE METER (BEAKER) 123 mg/dL 70-110 TESTED AT [address] (test wxeo=9840) [place] [id number] POCT-GLUCOSE [id number] 14:04:00 Test Item Value Reference Range Comments POC-GLUCOSE METER (BEAKER) 152 mg/dL 70-110 TESTED AT [address] (test guud=1061) [place] [id number] POCT-GLUCOSE [id number] 12:52:00 Test Item Value Reference Range Comments POC-GLUCOSE METER (BEAKER) 228 mg/dL 70-110 TESTED AT [address] (test pivf=5154) [place] [id number] RAD, CHEST, 1 VIEW, NON [id number] 09:40:00Reason for exam:->post opShould this be performed at the bedside?->YesFINAL REPORT Comparison: 07/20/2018 TECHNIQUE: Single view of the chest FINDINGS: There are nonspecific prominent interstitial markings bilaterally. Trace pleural effusions are seen. No gross new lung parenchymal changes. Cardiac silhouette is enlarged. Thoracic aortic stent grafts noted. Right-sided PICC line is stable. Signed: [facility] [employer] MDReport Verified Date/Time: 07/21/2018 09: 40:18 Reading Location: [facility] Radiology Reading Room POCT-GLUCOSE [id number] 09:10: 00 Test Item Value Reference Range Comments POC-GLUCOSE METER (BEAKER) 239 mg/dL 70-110 TESTED AT [address] (test ygft=3629) [place] [id number] [id number] 06:51:00 Test Item Value Reference Range Comments PHOSPHORUS (BEAKER) (test mmyi=678) 3.4 mg/dL 2.3-4.7 [id number] 06:51:00 Test Item Value Reference Range Comments MAGNESIUM (BEAKER) (test uadc=343) 1.8 mg/dL 1.6-2.6 BASIC METABOLIC [id number] 06:51:00 Test Item Value Reference Range Comments SODIUM (BEAKER) (test 137 meq/L 136-145 woxs=041) POTASSIUM (BEAKER) (test 4.4 meq/L 3.5-5.1 qzdf=638) CHLORIDE (BEAKER) (test 100 meq/L 98-107 lyov=258) CO2 (BEAKER) (test 31 meq/L 22-29 tnbn=664) BLOOD UREA NITROGEN 23 mg/dL 7-21 (BEAKER) (test xlin=654) CREATININE (BEAKER) (test 1.40 mg/dL 0.57-1.25 ruqo=502) GLUCOSE RANDOM (BEAKER) 146 mg/dL 70-105 (test icqp=878) CALCIUM (BEAKER) (test 9.2 mg/dL 8.4-10.2 dzlg=231) EGFR (BEAKER) (test 45 mL/min/1.73 sq m ESTIMATED GFR IS NOT rejq=2328) ACCURATE CREATININE CLEARANCE IN PREDICTING GLOMERULAR FILTRATION RATE. ESTIMATED GFR IS NOT APPLICABLE FOR DIALYSIS PATIENTS. [id number] 06:47:00 Test Item Value Reference Range Comments PARTIAL THROMBOPLASTIN TIME (BEAKER) (test 51.7 seconds 22.5-36.0 qhzr=782) CBC (HEMOGRAM ONLY)2018-07-21 06:28:00 Test Item Value Reference Range Comments WHITE BLOOD CELL COUNT (BEAKER) (test lkpp=986) 5.4 K/ L 3.5-10.5 RED BLOOD CELL COUNT (BEAKER) (test ojnh=283) 2.66 M/ L 3.93-5.22 HEMOGLOBIN (BEAKER) (test yvou=600) 8.2 GM/DL 11.2-15.7 HEMATOCRIT (BEAKER) (test lfri=576) 28.3 % 34.1-44.9 MEAN CORPUSCULAR VOLUME (BEAKER) (test vsim=225) 106.4 fL 79.4-94.8 MEAN CORPUSCULAR HEMOGLOBIN (BEAKER) (test 30.8 pg 25.6-32.2 xviy=791) MEAN CORPUSCULAR HEMOGLOBIN CONC (BEAKER) (test 29.0 GM/DL 32.2-35.5 gjow=871) RED CELL DISTRIBUTION WIDTH (BEAKER) (test 18.3 % 11.7-14.4 rjxd=344) PLATELET COUNT (BEAKER) (test bmcj=403) 211 K/CU MM 150-450 MEAN PLATELET VOLUME (BEAKER) (test edsc=223) 10.3 fL 9.4-12.3 NUCLEATED RED BLOOD CELLS (BEAKER) (test 0 /100 WBC 0-0 srvy=787) POCT-GLUCOSE [id number] 21:18:00 Test Item Value Reference Range Comments POC-GLUCOSE METER (BEAKER) 245 mg/dL 70-110 TESTED AT [address] (test ihdd=8404) [place] [address] POCT-GLUCOSE [id number] 18:12:00 Test Item Value Reference Range Comments POC-GLUCOSE METER (BEAKER) 158 mg/dL 70-110 TESTED AT [address] (test fcqm=1159) [place] [id number] POCT-GLUCOSE [id number] 12:46:00 Test Item Value Reference Range Comments POC-GLUCOSE METER (BEAKER) 178 mg/dL 70-110 TESTED AT [address] (test mksx=8392) [facility] [address] RAD, CHEST, 1 VIEW, NON [id number] 08:43:00Reason for exam:->post opShould this be performed at the bedside?->YesFINAL REPORT Chest one view. Clinical history: post op Comparison: 2018Discussion: A frontal chest is provided. Cardiomediastinal contours are unchanged. Lines and tubesare in stable position. Stable appearance of vascular congestion and interstitial edema. Small bilateral pleural effusions. No pneumothorax. Signed: Morgan Cheng Verified Date/Time: 07/20/2018 08:43 :10 Reading Location: [facility] Radiology Reading Room POCT-GLUCOSE [id number] 08:05:00 Test Item Value Reference Range Comments POC-GLUCOSE METER (BEAKER) 114 mg/dL 70-[address] [facility] [address] (test mnkg=2544) [facility] [address] [id number] 06:55:00 Test Item Value Reference Range Comments PHOSPHORUS (BEAKER) (test huzv=535) 3.4 mg/dL 2.3-4.7 [id number] 06:55:00 Test Item Value Reference Range Comments MAGNESIUM (BEAKER) (test dmxb=416) 1.5 mg/dL 1.6-2.6 BASIC METABOLIC [id number] 06:55:00 Test Item Value Reference Range Comments SODIUM (BEAKER) (test 137 meq/L 136-145 mydn=266) POTASSIUM (BEAKER) (test 4.4 meq/L 3.5-5.1 uqcy=776) CHLORIDE (BEAKER) (test 101 meq/L 98-107 pcfz=168) CO2 (BEAKER) (test 27 meq/L 22-29 tobh=189) BLOOD UREA NITROGEN 23 mg/dL 7-21 (BEAKER) (test bpjn=362) CREATININE (BEAKER) (test 1.28 mg/dL 0.57-1.25 qvmb=455) GLUCOSE RANDOM (BEAKER) 150 mg/dL 70-105 (test iztu=095) CALCIUM (BEAKER) (test 9.0 mg/dL 8.4-10.2 bprb=769) EGFR (BEAKER) (test 50 mL/min/1.73 sq m ESTIMATED GFR IS NOT hfdr=8888) ACCURATE CREATININE CLEARANCE IN PREDICTING GLOMERULAR FILTRATION RATE. ESTIMATED GFR IS NOT APPLICABLE FOR DIALYSIS PATIENTS. [id number] 06:28:00 Test Item Value Reference Range Comments PARTIAL THROMBOPLASTIN TIME (BEAKER) (test 44.5 seconds 22.5-36.0 uvlx=011) CBC (HEMOGRAM ONLY)2018-07-20 06:19:00 Test Item Value Reference Range Comments WHITE BLOOD CELL COUNT (BEAKER) (test yqst=362) 5.5 K/ L 3.5-10.5 RED BLOOD CELL COUNT (BEAKER) (test iric=097) 2.58 M/ L 3.93-5.22 HEMOGLOBIN (BEAKER) (test vxij=798) 7.9 GM/DL 11.2-15.7 HEMATOCRIT (BEAKER) (test ngho=904) 27.1 % 34.1-44.9 MEAN CORPUSCULAR VOLUME (BEAKER) (test ljcy=014) 105.0 fL 79.4-94.8 MEAN CORPUSCULAR HEMOGLOBIN (BEAKER) (test 30.6 pg 25.6-32.2 dxwz=799) MEAN CORPUSCULAR HEMOGLOBIN CONC (BEAKER) (test 29.2 GM/DL 32.2-35.5 iquv=654) RED CELL DISTRIBUTION WIDTH (BEAKER) (test 18.5 % 11.7-14.4 ibvb=884) PLATELET COUNT (BEAKER) (test gnbt=969) 189 K/CU MM 150-450 MEAN PLATELET VOLUME (BEAKER) (test kaji=894) 9.9 fL 9.4-12.3 NUCLEATED RED BLOOD CELLS (BEAKER) (test 0 /100 WBC 0-0 ydpx=309) POCT-GLUCOSE [id number] 00:43:00 Test Item Value Reference Range Comments POC-GLUCOSE METER (BEAKER) 135 mg/dL 70-110 TESTED AT [address] (test umca=9772) [place] [id number] POCT-GLUCOSE [id number] 21:19:00 Test Item Value Reference Range Comments POC-GLUCOSE METER (BEAKER) 284 mg/dL 70-110 TESTED AT [address] (test oowu=7546) [place] [id number] POCT-GLUCOSE [id number] 17:54:00 Test Item Value Reference Range Comments POC-GLUCOSE METER (BEAKER) 146 mg/dL 70-110 TESTED AT [address] (test uxva=8329) [place] [id number] POCT-GLUCOSE [id number] 14:15:00 Test Item Value Reference Range Comments POC-GLUCOSE METER (BEAKER) 230 mg/dL 70-110 TESTED AT [address] (test ujxs=2179) [facility] [address] RAD, CHEST, 1 VIEW, NON [id number] 08:30:00Reason for exam:->post opShould this be performed [...] MDReport Verified Date/Time: 07/19/2018 08:30:21 Reading Location: [facility] Radiology Reading Room POCT-GLUCOSE [id number] 07:30:00 Test Item Value Reference Range Comments POC-GLUCOSE METER (BEAKER) 177 mg/dL 70-[address] [facility] [address] [facility] (test mplf=9480) [facility] [address] [id number] 05:20:00 Test Item Value Reference Range Comments PHOSPHORUS (BEAKER) (test owvk=138) 3.5 mg/dL 2.3-4.7 [id number] 05:20:00 Test Item Value Reference Range Comments MAGNESIUM (BEAKER) (test otqj=880) 1.8 mg/dL 1.6-2.6 BASIC METABOLIC [id number] 05:20:00 Test Item Value Reference Range Comments SODIUM (BEAKER) (test 142 meq/L 136-145 ucbw=957) POTASSIUM (BEAKER) (test 4.5 meq/L 3.5-5.1 rbfz=732) CHLORIDE (BEAKER) (test 107 meq/L 98-107 bwie=087) CO2 (BEAKER) (test 31 meq/L 22-29 fkji=266) BLOOD UREA NITROGEN 25 mg/dL 7-21 (BEAKER) (test idgy=546) CREATININE (BEAKER) (test 1.35 mg/dL 0.57-1.25 fbiv=837) GLUCOSE RANDOM (BEAKER) 165 mg/dL 70-105 (test aiez=666) CALCIUM (BEAKER) (test 9.1 mg/dL 8.4-10.2 pjaq=519) EGFR (BEAKER) (test 47 mL/min/1.73 sq m ESTIMATED GFR IS NOT ntdb=4833) ACCURATE CREATININE CLEARANCE IN PREDICTING GLOMERULAR FILTRATION RATE. ESTIMATED GFR IS NOT APPLICABLE FOR DIALYSIS PATIENTS. [id number] 05:17:00 Test Item Value Reference Range Comments PARTIAL THROMBOPLASTIN TIME (BEAKER) (test 44.9 seconds 22.5-36.0 ryss=247) PROTHROMBIN [id number] 05:16:00 Test Item Value Reference Range Comments PROTIME (BEAKER) (test siyo=583) 13.9 seconds 11.7-14.7 INR (BEAKER) (test mfqi=571) 1.1 <=5.9 RECOMMENDED COUMADIN/WARFARIN INR THERAPY RANGESSTANDARD DOSE: 2.0 - 3.0 Includes: PROPHYLAXIS forvenous thrombosis, systemic embolization; TREATMENT for venous thrombosis and/or pulmonary embolus.HIGH RISK: Target INR is 2.5-3.5 for patients with mechanical heart valves.CBC (HEMOGRAM ONLY)2018-07-19 05:02:00 Test Item Value Reference Range Comments WHITE BLOOD CELL COUNT (BEAKER) (test mpbv=506) 6.3 K/ L 3.5-10.5 RED BLOOD CELL COUNT (BEAKER) (test hnvf=887) 2.59 M/ L 3.93-5.22 HEMOGLOBIN (BEAKER) (test jawj=053) 8.1 GM/DL 11.2-15.7 HEMATOCRIT (BEAKER) (test mhxg=196) 27.6 % 34.1-44.9 MEAN CORPUSCULAR VOLUME (BEAKER) (test hzky=013) 106.6 fL 79.4-94.8 MEAN CORPUSCULAR HEMOGLOBIN (BEAKER) (test 31.3 pg 25.6-32.2 hwms=801) MEAN CORPUSCULAR HEMOGLOBIN CONC (BEAKER) (test 29.3 GM/DL 32.2-35.5 zdfw=294) RED CELL DISTRIBUTION WIDTH (BEAKER) (test 18.6 % 11.7-14.4 qamx=974) PLATELET COUNT (BEAKER) (test uxkz=428) 186 K/CU MM 150-450 MEAN PLATELET VOLUME (BEAKER) (test svtj=685) 9.7 fL 9.4-12.3 NUCLEATED RED BLOOD CELLS (BEAKER) (test 0 /100 WBC 0-0 nbop=148) POCT-GLUCOSE [id number] 23:14:00 Test Item Value Reference Range Comments POC-GLUCOSE METER (BEAKER) 173 mg/dL 70-110 TESTED AT [address] (test bhac=3777) [facility] [address] POCT-GLUCOSE [id number] 21:47:00 Test Item Value Reference Range Comments POC-GLUCOSE METER (BEAKER) 237 mg/dL 70-110 TESTED AT [address] (test uflo=4162) [facility] [address] POCT-GLUCOSE [id number] 18:16:00 Test Item Value Reference Range Comments POC-GLUCOSE METER (BEAKER) 234 mg/dL 70-110 TESTED AT [address] (test kytr=2489) [facility] [address] POCT-GLUCOSE [id number] 08:34:00 Test Item Value Reference Range Comments POC-GLUCOSE METER (BEAKER) 127 mg/dL 70-110 TESTED AT [address] (test mqcq=5874) [facility] [address] RAD, CHEST, 1 VIEW, NON [id number] 08:16:00Reason for exam:->post opShould this be performed [...] Cheng Verified Date/Time: 07/18/2018 08:16:56 Reading Location: [facility] Radiology Reading Room 08: 16 AMCBC (HEMOGRAM ONLY)2018-07-18 04:48:00 Test Item Value Reference Range Comments WHITE BLOOD CELL COUNT (BEAKER) (test eozo=281) 7.8 K/ L 3.5-10.5 RED BLOOD CELL COUNT (BEAKER) (test tlsd=510) 2.64 M/ L 3.93-5.22 HEMOGLOBIN (BEAKER) (test bcrj=679) 8.1 GM/DL 11.2-15.7 HEMATOCRIT (BEAKER) (test tfsx=282) 28.1 % 34.1-44.9 MEAN CORPUSCULAR VOLUME (BEAKER) (test zket=018) 106.4 fL 79.4-94.8 MEAN CORPUSCULAR HEMOGLOBIN (BEAKER) (test 30.7 pg 25.6-32.2 kjgl=951) MEAN CORPUSCULAR HEMOGLOBIN CONC (BEAKER) (test 28.8 GM/DL 32.2-35.5 izvx=787) RED CELL DISTRIBUTION WIDTH (BEAKER) (test 18.9 % 11.7-14.4 enod=960) PLATELET COUNT (BEAKER) (test vtxw=236) 197 K/CU MM 150-450 MEAN PLATELET VOLUME (BEAKER) (test yiix=844) 10.2 fL 9.4-12.3 NUCLEATED RED BLOOD CELLS (BEAKER) (test 0 /100 WBC 0-0 axuq=439) [id number] 04:40:00 Test Item Value Reference Range Comments PHOSPHORUS (BEAKER) (test qsyi=823) 3.6 mg/dL 2.3-4.7 [id number] 04:40:00 Test Item Value Reference Range Comments MAGNESIUM (BEAKER) (test oiml=739) 1.8 mg/dL 1.6-2.6 BASIC METABOLIC [id number] 04:40:00 Test Item Value Reference Range Comments SODIUM (BEAKER) (test 140 meq/L 136-145 fmng=619) POTASSIUM (BEAKER) (test 4.5 meq/L 3.5-5.1 debs=197) CHLORIDE (BEAKER) (test 106 meq/L 98-107 tshm=631) CO2 (BEAKER) (test 26 meq/L 22-29 nwob=696) BLOOD UREA NITROGEN 23 mg/dL 7-21 (BEAKER) (test rjyw=199) CREATININE (BEAKER) (test 1.34 mg/dL 0.57-1.25 wczp=196) GLUCOSE RANDOM (BEAKER) 105 mg/dL 70-105 (test jwoa=140) CALCIUM (BEAKER) (test 9.1 mg/dL 8.4-10.2 thdl=456) EGFR (BEAKER) (test 47 mL/min/1.73 sq m ESTIMATED GFR IS NOT aauq=6136) ACCURATE CREATININE CLEARANCE IN PREDICTING GLOMERULAR FILTRATION RATE. ESTIMATED GFR IS NOT APPLICABLE FOR DIALYSIS PATIENTS. [id number] 04:22:00 Test Item Value Reference Range Comments PARTIAL THROMBOPLASTIN TIME (BEAKER) (test 56.8 seconds 22.5-36.0 mjzp=687) PROTHROMBIN [id number] 04:20:00 Test Item Value Reference Range Comments PROTIME (BEAKER) (test jsex=902) 13.9 seconds 11.7-14.7 INR (BEAKER) (test rumc=640) 1.0 <=5.9 RECOMMENDED COUMADIN/WARFARIN INR THERAPY RANGESSTANDARD DOSE: 2.0 - 3.0 Includes: PROPHYLAXIS forvenous thrombosis, systemic embolization; TREATMENT for venous thrombosis and/or pulmonary embolus.HIGH RISK: Target INR is 2.5-3.5 for patients with mechanical heart valves.POCT-GLUCOSE [id number] 20:54:00 Test Item Value Reference Range Comments POC-GLUCOSE METER (BEAKER) 311 mg/dL 70-110 Patient on insulin Drip/TESTED (test izrh=1778) AT [place] [id number] POCT-GLUCOSE [id number] 18:21:00 Test Item Value Reference Range Comments POC-GLUCOSE METER (BEAKER) 186 mg/dL 70-110 TESTED AT [address] (test tsgn=9185) [place] [id number] POCT-GLUCOSE [id number] 13:16:00 Test Item Value Reference Range Comments POC-GLUCOSE METER (BEAKER) 153 mg/dL 70-110 TESTED AT [address] (test hybl=8980) [place] [id number] POCT-GLUCOSE [id number] 09:26:00 Test Item Value Reference Range Comments POC-GLUCOSE METER (BEAKER) 128 mg/dL 70-110 TESTED AT [address] (test sqbm=1827) [place] [id number] RAD, CHEST, 1 VIEW, NON [id number] 07:39:00Reason for exam:->post opShould this be performed [...] MDReport Verified Date/Time: 2018 07:39:00 Reading Location: [facility] Radiology Reading Room Electronically signed by: AZUL SAM M.D.on 07/17/2018 07:39 [id number] 06:22:00 Test Item Value Reference Range Comments PHOSPHORUS (BEAKER) (test zbih=935) 3.6 mg/dL 2.3-4.7 [id number] 06:22:00 Test Item Value Reference Range Comments MAGNESIUM (BEAKER) (test cgyq=505) 1.9 mg/dL 1.6-2.6 BASIC METABOLIC [id number] 06:22:00 Test Item Value Reference Range Comments SODIUM (BEAKER) (test 142 meq/L 136-145 szsu=847) POTASSIUM (BEAKER) (test 4.6 meq/L 3.5-5.1 hipw=137) CHLORIDE (BEAKER) (test 106 meq/L 98-107 jilj=001) CO2 (BEAKER) (test 30 meq/L 22-29 qvty=589) BLOOD UREA NITROGEN 23 mg/dL 7-21 (BEAKER) (test cuyt=163) CREATININE (BEAKER) (test 1.31 mg/dL 0.57-1.25 sxcq=332) GLUCOSE RANDOM (BEAKER) 88 mg/dL 70-105 (test qdyq=260) CALCIUM (BEAKER) (test 8.9 mg/dL 8.4-10.2 iadp=106) EGFR (BEAKER) (test 49 mL/min/1.73 sq m ESTIMATED GFR IS NOT lfos=0096) ACCURATE CREATININE CLEARANCE IN PREDICTING GLOMERULAR FILTRATION RATE. ESTIMATED GFR IS NOT APPLICABLE FOR DIALYSIS PATIENTS. [id number] 05:10:00 Test Item Value Reference Range Comments PARTIAL THROMBOPLASTIN TIME (BEAKER) (test 52.0 seconds 22.5-36.0 rkea=755) PROTHROMBIN [id number] 05:09:00 Test Item Value Reference Range Comments PROTIME (BEAKER) (test espb=782) 14.3 seconds 11.7-14.7 INR (BEAKER) (test cxnh=083) 1.1 <=5.9 RECOMMENDED COUMADIN/WARFARIN INR THERAPY RANGESSTANDARD DOSE: 2.0 - 3.0 Includes: PROPHYLAXIS forvenous thrombosis, systemic embolization; TREATMENT for venous thrombosis and/or pulmonary embolus.HIGH RISK: Target INR is 2.5-3.5 for patients with mechanical heart valves.CBC (HEMOGRAM ONLY)2018-07-17 04:55:00 Test Item Value Reference Range Comments WHITE BLOOD CELL COUNT (BEAKER) (test wzlh=905) 7.5 K/ L 3.5-10.5 RED BLOOD CELL COUNT (BEAKER) (test hgtb=557) 2.63 M/ L 3.93-5.22 HEMOGLOBIN (BEAKER) (test mdsq=324) 8.1 GM/DL 11.2-15.7 HEMATOCRIT (BEAKER) (test ixst=083) 27.7 % 34.1-44.9 MEAN CORPUSCULAR VOLUME (BEAKER) (test kwlr=514) 105.3 fL 79.4-94.8 MEAN CORPUSCULAR HEMOGLOBIN (BEAKER) (test 30.8 pg 25.6-32.2 ntrc=044) MEAN CORPUSCULAR HEMOGLOBIN CONC (BEAKER) (test 29.2 GM/DL 32.2-35.5 ostp=265) RED CELL DISTRIBUTION WIDTH (BEAKER) (test 18.9 % 11.7-14.4 kelc=817) PLATELET COUNT (BEAKER) (test yvrj=084) 215 K/CU MM 150-450 MEAN PLATELET VOLUME (BEAKER) (test kxei=237) 10.2 fL 9.4-12.3 NUCLEATED RED BLOOD CELLS (BEAKER) (test 0 /100 WBC 0-0 xais=613) POCT-GLUCOSE [id number] 21:30:00 Test Item Value Reference Range Comments POC-GLUCOSE METER (BEAKER) 217 mg/dL 70-110 TESTED AT [address] (test kscl=8684) [facility] [address] POCT-GLUCOSE [id number] 18:00:00 Test Item Value Reference Range Comments POC-GLUCOSE METER (BEAKER) 192 mg/dL 70-110 TESTED AT [address] (test xsph=5599) [facility] [address] POCT-GLUCOSE [id number] 14:32:00 Test Item Value Reference Range Comments POC-GLUCOSE METER (BEAKER) 203 mg/dL 70-110 TESTED AT [address] (test rwir=2758) [facility] [address] POCT-GLUCOSE [id number] 09:41:00 Test Item Value Reference Range Comments POC-GLUCOSE METER (BEAKER) 113 mg/dL 70-110 TESTED AT [address] (test xmve=7447) [facility] [address] [id number] 08:49:00 Test Item Value Reference Range Comments PHOSPHORUS (BEAKER) (test miud=091) 3.9 mg/dL 2.3-4.7 [id number] 08:49:00 Test Item Value Reference Range Comments MAGNESIUM (BEAKER) (test ixig=065) 2.0 mg/dL 1.6-2.6 BASIC METABOLIC [id number] 08:49:00 Test Item Value Reference Range Comments SODIUM (BEAKER) (test 142 meq/L 136-145 juix=292) POTASSIUM (BEAKER) (test 4.5 meq/L 3.5-5.1 tcnf=563) CHLORIDE (BEAKER) (test 105 meq/L 98-107 vafa=210) CO2 (BEAKER) (test 30 meq/L 22-29 yvgg=954) BLOOD UREA NITROGEN 24 mg/dL 7-21 (BEAKER) (test pazz=833) CREATININE (BEAKER) (test 1.25 mg/dL 0.57-1.25 nqge=314) GLUCOSE RANDOM (BEAKER) 80 mg/dL 70-105 (test nprx=735) CALCIUM (BEAKER) (test 8.8 mg/dL 8.4-10.2 tiwi=805) EGFR (BEAKER) (test 51 mL/min/1.73 sq m ESTIMATED GFR IS NOT uste=2289) ACCURATE CREATININE CLEARANCE IN PREDICTING GLOMERULAR FILTRATION RATE. ESTIMATED GFR IS NOT APPLICABLE FOR DIALYSIS PATIENTS. RAD, CHEST, 1 VIEW, NON [id number] 08:09:00Reason for exam:->post opShould this be performed at the bedside?->YesFINAL REPORT Chest, one view HISTORY: Postoperative assessment Comparison: 2018 Findings: Lungs: Mild bilateral interstitial opacities, unchanged from prior study. Likely pulmonary venous congestion. Heart: Moderate cardiomegaly, unchanged. Pleura: Small bilateral pleural effusions, unchanged. No pneumothorax. Bones: Unremarkable. Lines/tubes: Unchanged in position. IMPRESSION: No significant interval change. Signed: Luis Lopezepcamilla Verified Date/Time: 07/16/2018 08:09:34 Reading Location: [address] Body Reading Room 08: 09 AMPROTHROMBIN TIME/[id number] 05:46:00 Test Item Value Reference Range Comments PROTIME (BEAKER) (test qvad=983) 14.0 seconds 11.7-14.7 INR (BEAKER) (test vffq=683) 1.1 <=5.9 RECOMMENDED COUMADIN/WARFARIN INR THERAPY RANGESSTANDARD DOSE: 2.0 - 3.0 Includes: PROPHYLAXIS forvenous thrombosis, systemic embolization; TREATMENT for venous thrombosis and/or pulmonary embolus.HIGH RISK: Target INR is 2.5-3.5 for patients with mechanical heart valves.[id number] 05:46:00 Test Item Value Reference Range Comments PARTIAL THROMBOPLASTIN TIME (BEAKER) (test 54.5 seconds 22.5-36.0 fsoy=441) CBC (HEMOGRAM ONLY)2018-07-16 05:33:00 Test Item Value Reference Range Comments WHITE BLOOD CELL COUNT (BEAKER) (test rasx=142) 6.6 K/ L 3.5-10.5 RED BLOOD CELL COUNT (BEAKER) (test opdj=231) 2.75 M/ L 3.93-5.22 HEMOGLOBIN (BEAKER) (test miwx=828) 8.5 GM/DL 11.2-15.7 HEMATOCRIT (BEAKER) (test crpr=272) 28.5 % 34.1-44.9 MEAN CORPUSCULAR VOLUME (BEAKER) (test jidu=497) 103.6 fL 79.4-94.8 MEAN CORPUSCULAR HEMOGLOBIN (BEAKER) (test 30.9 pg 25.6-32.2 xaxk=278) MEAN CORPUSCULAR HEMOGLOBIN CONC (BEAKER) (test 29.8 GM/DL 32.2-35.5 gdvy=464) RED CELL DISTRIBUTION WIDTH (BEAKER) (test 19.1 % 11.7-14.4 xyun=823) PLATELET COUNT (BEAKER) (test ubna=593) 240 K/CU MM 150-450 MEAN PLATELET VOLUME (BEAKER) (test lggj=884) 10.1 fL 9.4-12.3 NUCLEATED RED BLOOD CELLS (BEAKER) (test 0 /100 WBC 0-0 roek=836) POCT-GLUCOSE [id number] 21:14:00 Test Item Value Reference Range Comments POC-GLUCOSE METER (BEAKER) 152 mg/dL 70-110 TESTED AT [address] (test wufe=6074) [place] [id number] POCT-GLUCOSE [id number] 19:03:00 Test Item Value Reference Range Comments POC-GLUCOSE METER (BEAKER) 173 mg/dL 70-110 TESTED AT [address] (test aoxe=3429) [place] [id number] POCT-GLUCOSE [id number] 13:33:00 Test Item Value Reference Range Comments POC-GLUCOSE METER (BEAKER) 274 mg/dL 70-110 TESTED AT [address] (test zdqr=3388) [place] [id number] POCT-GLUCOSE [id number] 10:28:00 Test Item Value Reference Range Comments POC-GLUCOSE METER (BEAKER) 131 mg/dL 70-110 TESTED AT [address] (test hzrt=0434) [facility] [address] POCT-GLUCOSE [id number] 06:41:00 Test Item Value Reference Range Comments POC-GLUCOSE METER (BEAKER) 152 mg/dL 70-110 TESTED AT [address] (test gpxx=6120) [facility] [address] [id number] 04:02:00 Test Item Value Reference Range Comments PHOSPHORUS (BEAKER) (test szky=717) 3.6 mg/dL 2.3-4.7 [id number] 04:02:00 Test Item Value Reference Range Comments MAGNESIUM (BEAKER) (test jjbf=198) 2.1 mg/dL 1.6-2.6 BASIC METABOLIC [id number] 04:02:00 Test Item Value Reference Range Comments SODIUM (BEAKER) (test 135 meq/L 136-145 offo=954) POTASSIUM (BEAKER) (test 4.6 meq/L 3.5-5.1 hpzf=790) CHLORIDE (BEAKER) (test 101 meq/L 98-107 hwxu=832) CO2 (BEAKER) (test 27 meq/L 22-29 dect=434) BLOOD UREA NITROGEN 23 mg/dL 7-21 (BEAKER) (test ruoj=328) CREATININE (BEAKER) (test 1.37 mg/dL 0.57-1.25 uuxo=589) GLUCOSE RANDOM (BEAKER) 187 mg/dL 70-105 (test mftf=998) CALCIUM (BEAKER) (test 8.4 mg/dL 8.4-10.2 ulsd=958) EGFR (BEAKER) (test 46 mL/min/1.73 sq m ESTIMATED GFR IS NOT ewpt=5561) ACCURATE CREATININE CLEARANCE IN PREDICTING GLOMERULAR FILTRATION RATE. ESTIMATED GFR IS NOT APPLICABLE FOR DIALYSIS PATIENTS. [id number] 03:57:00 Test Item Value Reference Range Comments PARTIAL THROMBOPLASTIN TIME (BEAKER) (test 44.5 seconds 22.5-36.0 makh=901) PROTHROMBIN [id number] 03:56:00 Test Item Value Reference Range Comments PROTIME (BEAKER) (test jpbo=935) 13.4 seconds 11.7-14.7 INR (BEAKER) (test mxvh=805) 1.0 <=5.9 RECOMMENDED COUMADIN/WARFARIN INR THERAPY RANGESSTANDARD DOSE: 2.0 - 3.0 Includes: PROPHYLAXIS forvenous thrombosis, systemic embolization; TREATMENT for venous thrombosis and/or pulmonary embolus.HIGH RISK: Target INR is 2.5-3.5 for patients with mechanical heart valves.RAD, CHEST, 1 VIEW, NON [id number] 03:40:00Reason for exam:->post opShould this be [...] MDReport Verified Date/Time: 07/15/2018 03:40:13 Reading Location: [address] Neuro Reading Room 03: 40 AMCBC (HEMOGRAM ONLY)2018-07-15 03:33:00 Test Item Value Reference Range Comments WHITE BLOOD CELL COUNT (BEAKER) (test yuom=253) 7.2 K/ L 3.5-10.5 RED BLOOD CELL COUNT (BEAKER) (test rfqo=533) 2.91 M/ L 3.93-5.22 HEMOGLOBIN (BEAKER) (test lxlp=658) 8.9 GM/DL 11.2-15.7 HEMATOCRIT (BEAKER) (test hhuj=238) 30.2 % 34.1-44.9 MEAN CORPUSCULAR VOLUME (BEAKER) (test miam=122) 103.8 fL 79.4-94.8 MEAN CORPUSCULAR HEMOGLOBIN (BEAKER) (test 30.6 pg 25.6-32.2 dmip=003) MEAN CORPUSCULAR HEMOGLOBIN CONC (BEAKER) (test 29.5 GM/DL 32.2-35.5 bqzx=844) RED CELL DISTRIBUTION WIDTH (BEAKER) (test 19.2 % 11.7-14.4 lfle=344) PLATELET COUNT (BEAKER) (test tzou=746) 217 K/CU MM 150-450 MEAN PLATELET VOLUME (BEAKER) (test kjcx=732) 9.8 fL 9.4-12.3 NUCLEATED RED BLOOD CELLS (BEAKER) (test 0 /100 WBC 0-0 kcwa=141) POCT-GLUCOSE [id number] 21:46:00 Test Item Value Reference Range Comments POC-GLUCOSE METER (BEAKER) 263 mg/dL 70-[address] [facility] [address] [facility] (test prac=1623) [facility] [address] POCT-GLUCOSE [id number] 19:03:00 Test Item Value Reference Range Comments POC-GLUCOSE METER (BEAKER) 178 mg/dL 70-[address] [facility] [address] [facility] (test jrsb=0604) [facility] [address] POCT-GLUCOSE [id number] 17:02:00 Test Item Value Reference Range Comments POC-GLUCOSE METER (BEAKER) 126 mg/dL 70-110 TESTED AT [address] (test yhxt=4860) [facility] [address] POCT-GLUCOSE [id number] 11:34:00 Test Item Value Reference Range Comments POC-GLUCOSE METER (BEAKER) 202 mg/dL 70-110 TESTED AT [address] (test sdwq=5093) [facility] [address] RAD, CHEST, 1 VIEW, NON [id number] 05:46:00Reason for exam:->post opShould this be performed [...] [place] Verified Date/Time: 07/14/2018 05:46:57 Reading Location: [address] Neuro Reading Room [id number] 04:03:00 Test Item Value Reference Range Comments MAGNESIUM (BEAKER) (test 2.2 mg/dL 1.6-2.6 Specimen slightly hemolyzed etkg=725) [id number] 04:03:00 Test Item Value Reference Range Comments PHOSPHORUS (BEAKER) (test 2.9 mg/dL 2.3-4.7 Specimen slightly hemolyzed xmau=600) BASIC METABOLIC [id number] 04:03:00 Test Item Value Reference Range Comments SODIUM (BEAKER) (test 138 meq/L 136-145 bwne=748) POTASSIUM (BEAKER) (test 5.0 meq/L 3.5-5.1 Specimen slightly bjqk=865) hemolyzed CHLORIDE (BEAKER) (test 103 meq/L 98-107 mlhq=184) CO2 (BEAKER) (test 29 meq/L 22-29 zrwu=270) BLOOD UREA NITROGEN 23 mg/dL 7-21 (BEAKER) (test mnir=807) CREATININE (BEAKER) (test 1.41 mg/dL 0.57-1.25 Specimen slightly vwst=286) hemolyzed GLUCOSE RANDOM (BEAKER) 144 mg/dL 70-105 (test lhro=364) CALCIUM (BEAKER) (test 9.1 mg/dL 8.4-10.2 ulgz=760) EGFR (BEAKER) (test 45 mL/min/1.73 sq m ESTIMATED GFR IS NOT dszo=4946) ACCURATE CREATININE CLEARANCE IN PREDICTING GLOMERULAR FILTRATION RATE. ESTIMATED GFR IS NOT APPLICABLE FOR DIALYSIS PATIENTS. [id number] 03:49:00 Test Item Value Reference Range Comments PARTIAL THROMBOPLASTIN TIME (BEAKER) (test 42.0 seconds 22.5-36.0 zexh=104) PROTHROMBIN TIME/[id number] 03:48:00 Test Item Value Reference Range Comments PROTIME (BEAKER) (test lrca=508) 14.1 seconds 11.7-14.7 INR (BEAKER) (test whza=976) 1.1 <=5.9 RECOMMENDED COUMADIN/WARFARIN INR THERAPY RANGESSTANDARD DOSE: 2.0 - 3.0 Includes: PROPHYLAXIS forvenous thrombosis, systemic embolization; TREATMENT for venous thrombosis and/or pulmonary embolus.HIGH RISK: Target INR is 2.5-3.5 for patients with mechanical heart valves.CBC (HEMOGRAM ONLY)2018-07-14 03:38:00 Test Item Value Reference Range Comments WHITE BLOOD CELL COUNT (BEAKER) (test xkpl=473) 8.1 K/ L 3.5-10.5 RED BLOOD CELL COUNT (BEAKER) (test wioi=788) 2.93 M/ L 3.93-5.22 HEMOGLOBIN (BEAKER) (test rcws=149) 9.0 GM/DL 11.2-15.7 HEMATOCRIT (BEAKER) (test hgqc=788) 30.6 % 34.1-44.9 MEAN CORPUSCULAR VOLUME (BEAKER) (test ahrx=902) 104.4 fL 79.4-94.8 MEAN CORPUSCULAR HEMOGLOBIN (BEAKER) (test 30.7 pg 25.6-32.2 ldon=441) MEAN CORPUSCULAR HEMOGLOBIN CONC (BEAKER) (test 29.4 GM/DL 32.2-35.5 bwgp=068) RED CELL DISTRIBUTION WIDTH (BEAKER) (test 19.6 % 11.7-14.4 kczk=612) PLATELET COUNT (BEAKER) (test klvb=791) 252 K/CU MM 150-450 MEAN PLATELET VOLUME (BEAKER) (test yvvm=174) 9.7 fL 9.4-12.3 NUCLEATED RED BLOOD CELLS (BEAKER) (test 0 /100 WBC 0-0 nrye=017) POCT-GLUCOSE [id number] 21:17:00 Test Item Value Reference Range Comments POC-GLUCOSE METER (BEAKER) 168 mg/dL 70-110 TESTED AT [address] (test xezi=9322) [place] [id number] POCT-GLUCOSE [id number] 16:32:00 Test Item Value Reference Range Comments POC-GLUCOSE METER (BEAKER) 267 mg/dL 70-110 TESTED AT [address] (test hjwd=9141) [facility] [address] POCT-GLUCOSE [id number] 12:30:00 Test Item Value Reference Range Comments POC-GLUCOSE METER (BEAKER) 213 mg/dL 70-110 TESTED AT [address] (test wffh=0941) [facility] [address] RAD, CHEST, 1 VIEW, NON [id number] 09:17:00Reason for exam:->post opShould this be performed [...] MDReport Verified Date/Time: 07/13/2018 09:17:51 Reading Location: [facility] Radiology ReadingRoom 09 :17 AMDIGOXIN [id number] 09:01:00 Test Item Value Reference Range Comments DIGOXIN LEVEL (BEAKER) (test gssm=082) 0.8 ng/mL 0.8-2.0 Draw before next dose of DigoxinPOCT-GLUCOSE [id number] 08:47:00 Test Item Value Reference Range Comments POC-GLUCOSE METER (BEAKER) 240 mg/dL 70-110 TESTED AT [address] (test opsb=9373) [facility] [address] [id number] 04:08:00 Test Item Value Reference Range Comments PHOSPHORUS (BEAKER) (test hnbp=801) 3.5 mg/dL 2.3-4.7 [id number] 04:08:00 Test Item Value Reference Range Comments MAGNESIUM (BEAKER) (test fxor=597) 2.1 mg/dL 1.6-2.6 BASIC METABOLIC [id number] 04:08:00 Test Item Value Reference Range Comments SODIUM (BEAKER) (test 140 meq/L 136-145 dgqp=381) POTASSIUM (BEAKER) (test 4.8 meq/L 3.5-5.1 vyms=055) CHLORIDE (BEAKER) (test 105 meq/L 98-107 tcvo=430) CO2 (BEAKER) (test 28 meq/L 22-29 alym=159) BLOOD UREA NITROGEN 21 mg/dL 7-21 (BEAKER) (test gycu=942) CREATININE (BEAKER) (test 1.33 mg/dL 0.57-1.25 msrj=430) GLUCOSE RANDOM (BEAKER) 123 mg/dL 70-105 (test ztxq=635) CALCIUM (BEAKER) (test 8.8 mg/dL 8.4-10.2 dtoj=743) EGFR (BEAKER) (test 48 mL/min/1.73 sq m ESTIMATED GFR IS NOT pjtn=8750) ACCURATE CREATININE CLEARANCE IN PREDICTING GLOMERULAR FILTRATION RATE. ESTIMATED GFR IS NOT APPLICABLE FOR DIALYSIS PATIENTS. [id number] 03:51:00 Test Item Value Reference Range Comments PARTIAL THROMBOPLASTIN TIME (BEAKER) (test 43.3 seconds 22.5-36.0 tayt=087) PROTHROMBIN TIME/[id number] 03:50:00 Test Item Value Reference Range Comments PROTIME (BEAKER) (test dbyd=312) 13.7 seconds 11.7-14.7 INR (BEAKER) (test yfyx=091) 1.0 <=5.9 RECOMMENDED COUMADIN/WARFARIN INR THERAPY RANGESSTANDARD DOSE: 2.0 - 3.0 Includes: PROPHYLAXIS forvenous thrombosis, systemic embolization; TREATMENT for venous thrombosis and/or pulmonary embolus.HIGH RISK: Target INR is 2.5-3.5 for patients with mechanical heart valves.CBC (HEMOGRAM ONLY)2018-07-13 03:24:00 Test Item Value Reference Range Comments WHITE BLOOD CELL COUNT (BEAKER) (test fbng=722) 7.5 K/ L 3.5-10.5 RED BLOOD CELL COUNT (BEAKER) (test gqrl=213) 2.94 M/ L 3.93-5.22 HEMOGLOBIN (BEAKER) (test ymbw=899) 9.1 GM/DL 11.2-15.7 HEMATOCRIT (BEAKER) (test lpfl=619) 30.9 % 34.1-44.9 MEAN CORPUSCULAR VOLUME (BEAKER) (test czgt=132) 105.1 fL 79.4-94.8 MEAN CORPUSCULAR HEMOGLOBIN (BEAKER) (test 31.0 pg 25.6-32.2 duct=298) MEAN CORPUSCULAR HEMOGLOBIN CONC (BEAKER) (test 29.4 GM/DL 32.2-35.5 crra=389) RED CELL DISTRIBUTION WIDTH (BEAKER) (test 19.8 % 11.7-14.4 xabq=813) PLATELET COUNT (BEAKER) (test yfop=338) 259 K/CU MM 150-450 MEAN PLATELET VOLUME (BEAKER) (test bzwe=731) 9.7 fL 9.4-12.3 NUCLEATED RED BLOOD CELLS (BEAKER) (test 0 /100 WBC 0-0 eprp=945) POCT-GLUCOSE [id number] 22:41:00 Test Item Value Reference Range Comments POC-GLUCOSE METER (BEAKER) 230 mg/dL 70-110 TESTED AT [address] (test oegn=9305) [place] [id number] POCT-GLUCOSE [id number] 18:56:00 Test Item Value Reference Range Comments POC-GLUCOSE METER (BEAKER) 98 mg/dL 70-110 TESTED AT [address] (test xneo=3447) [place] [address] POCT-GLUCOSE [id number] 12:04:00 Test Item Value Reference Range Comments POC-GLUCOSE METER (BEAKER) 169 mg/dL 70-110 TESTED AT [address] (test zwck=3581) [place] [id number] POCT-GLUCOSE [id number] 09:50:00 Test Item Value Reference Range Comments POC-GLUCOSE METER (BEAKER) 260 mg/dL 70-110 TESTED AT [address] (test dhgg=7429) [place] [address] RAD, CHEST, 1 VIEW, NON [id number] 07:18:00Reason for exam:->post opShould this be performed at the bedside?->YesFINAL REPORT AP chest HISTORY: Postoperative. COMPARISON: 07/11/2018. IMPRESSION: Central line unchanged. Cardiomegaly. Thoracic aortic stent graft. Coarse interstitial markings similar to previous. Question developing right basilar atelectasis. No pneumothorax. Signed: Mitchel Jarquin MDReport Verified Date/ Time: 07/12/2018 07:18:25 Reading Location: [facility] Radiology Reading Room 07: 18 AMPOCT-GLUCOSE [id number] 06:54:00 Test Item Value Reference Range Comments POC-GLUCOSE METER (BEAKER) 193 mg/dL 70-110 TESTED AT [address] (test amce=0501) [place] [address] [id number] 04:51:00 Test Item Value Reference Range Comments PARTIAL THROMBOPLASTIN TIME (BEAKER) (test 42.6 seconds 22.5-36.0 nqss=307) PROTHROMBIN TIME/[id number] 04:42:00 Test Item Value Reference Range Comments PROTIME (BEAKER) (test mjcp=464) 13.7 seconds 11.7-14.7 INR (BEAKER) (test mbxs=120) 1.0 <=5.9 RECOMMENDED COUMADIN/WARFARIN INR THERAPY RANGESSTANDARD DOSE: 2.0 - 3.0 Includes: PROPHYLAXIS forvenous thrombosis, systemic embolization; TREATMENT for venous thrombosis and/or pulmonary embolus.HIGH RISK: Target INR is 2.5-3.5 for patients with mechanical heart valves.[id number] 04:31:00 Test Item Value Reference Range Comments PHOSPHORUS (BEAKER) (test plus=449) 2.4 mg/dL 2.3-4.7 [id number] 04:31:00 Test Item Value Reference Range Comments MAGNESIUM (BEAKER) (test hrsx=827) 2.3 mg/dL 1.6-2.6 BASIC METABOLIC [id number] 04:31:00 Test Item Value Reference Range Comments SODIUM (BEAKER) (test 141 meq/L 136-145 zeei=909) POTASSIUM (BEAKER) (test 4.5 meq/L 3.5-5.1 hzar=591) CHLORIDE (BEAKER) (test 106 meq/L 98-107 rigq=662) CO2 (BEAKER) (test 31 meq/L 22-29 qvvc=260) BLOOD UREA NITROGEN 26 mg/dL 7-21 (BEAKER) (test altv=410) CREATININE (BEAKER) (test 1.41 mg/dL 0.57-1.25 tiwh=940) GLUCOSE RANDOM (BEAKER) 63 mg/dL 70-105 (test chxq=475) CALCIUM (BEAKER) (test 8.7 mg/dL 8.4-10.2 xoch=806) EGFR (BEAKER) (test 45 mL/min/1.73 sq m ESTIMATED GFR IS NOT bamk=1366) ACCURATE CREATININE CLEARANCE IN PREDICTING GLOMERULAR FILTRATION RATE. ESTIMATED GFR IS NOT APPLICABLE FOR DIALYSIS PATIENTS. CBC (HEMOGRAM ONLY)2018-07-12 04:23:00 Test Item Value Reference Range Comments WHITE BLOOD CELL COUNT (BEAKER) (test owmx=622) 7.0 K/ L 3.5-10.5 RED BLOOD CELL COUNT (BEAKER) (test oeoc=129) 2.79 M/ L 3.93-5.22 HEMOGLOBIN (BEAKER) (test wtui=061) 8.6 GM/DL 11.2-15.7 HEMATOCRIT (BEAKER) (test rvyy=222) 28.3 % 34.1-44.9 MEAN CORPUSCULAR VOLUME (BEAKER) (test sbhd=061) 101.4 fL 79.4-94.8 MEAN CORPUSCULAR HEMOGLOBIN (BEAKER) (test 30.8 pg 25.6-32.2 kpmv=478) MEAN CORPUSCULAR HEMOGLOBIN CONC (BEAKER) (test 30.4 GM/DL 32.2-35.5 gafx=000) RED CELL DISTRIBUTION WIDTH (BEAKER) (test 20.2 % 11.7-14.4 pjsw=178) PLATELET COUNT (BEAKER) (test umbk=830) 276 K/CU MM 150-450 MEAN PLATELET VOLUME (BEAKER) (test binc=747) 10.3 fL 9.4-12.3 NUCLEATED RED BLOOD CELLS (BEAKER) (test 0 /100 WBC 0-0 ftul=654) POCT-GLUCOSE [id number] 00:19:00 Test Item Value Reference Range Comments POC-GLUCOSE METER (BEAKER) 404 mg/dL 70-110 TESTED AT [address] (test laih=6165) [facility] [address] POCT-GLUCOSE [id number] 18:10:00 Test Item Value Reference Range Comments POC-GLUCOSE METER (BEAKER) 268 mg/dL 70-110 TESTED AT [address] (test aofd=9756) [facility] [address] POCT-GLUCOSE [id number] 12:22:00 Test Item Value Reference Range Comments POC-GLUCOSE METER (BEAKER) 221 mg/dL 70-110 TESTED AT [address] (test llwy=5429) [facility] [address] RAD, CHEST, 1 VIEW, NON [id number] 07:27:00Reason for exam:->post opShould this be performed [...] MDReport Verified Date/Time: 2018 07:27:41 Reading [facility]: [facility] Reading Room POCT- GLUCOSE [id number] 05:28:00 Test Item Value Reference Range Comments POC-GLUCOSE METER (BEAKER) 166 mg/dL 70-[address] [facility] [address] [facility] (test cjjp=7171) [facility] [address] [id number] 04:08:00 Test Item Value Reference Range Comments PHOSPHORUS (BEAKER) (test kdmt=262) 3.0 mg/dL 2.3-4.7 [id number] 04:08:00 Test Item Value Reference Range Comments MAGNESIUM (BEAKER) (test oqcw=499) 1.8 mg/dL 1.6-2.6 BASIC METABOLIC [id number] 04:08:00 Test Item Value Reference Range Comments SODIUM (BEAKER) (test 138 meq/L 136-145 zgsa=479) POTASSIUM (BEAKER) (test 4.6 meq/L 3.5-5.1 engf=453) CHLORIDE (BEAKER) (test 102 meq/L 98-107 quzp=204) CO2 (BEAKER) (test 29 meq/L 22-29 lhqj=830) BLOOD UREA NITROGEN 28 mg/dL 7-21 (BEAKER) (test zbnc=441) CREATININE (BEAKER) (test 1.64 mg/dL 0.57-1.25 byes=777) GLUCOSE RANDOM (BEAKER) 196 mg/dL 70-105 (test eiyi=362) CALCIUM (BEAKER) (test 8.8 mg/dL 8.4-10.2 hlnp=773) EGFR (BEAKER) (test 37 mL/min/1.73 sq m ESTIMATED GFR IS NOT oink=4963) ACCURATE CREATININE CLEARANCE IN PREDICTING GLOMERULAR FILTRATION RATE. ESTIMATED GFR IS NOT APPLICABLE FOR DIALYSIS PATIENTS. [id number] 04:06:00 Test Item Value Reference Range Comments PARTIAL THROMBOPLASTIN TIME (BEAKER) (test 51.7 seconds 22.5-36.0 stfr=058) PROTHROMBIN TIME/[id number] 04:05:00 Test Item Value Reference Range Comments PROTIME (BEAKER) (test esww=913) 14.1 seconds 11.7-14.7 INR (BEAKER) (test jgku=660) 1.1 <=5.9 RECOMMENDED COUMADIN/WARFARIN INR THERAPY RANGESSTANDARD DOSE: 2.0 - 3.0 Includes: PROPHYLAXIS forvenous thrombosis, systemic embolization; TREATMENT for venous thrombosis and/or pulmonary embolus.HIGH RISK: Target INR is 2.5-3.5 for patients with mechanical heart valves.CBC (HEMOGRAM ONLY)2018-07-11 03:53:00 Test Item Value Reference Range Comments WHITE BLOOD CELL COUNT (BEAKER) (test vhes=771) 6.3 K/ L 3.5-10.5 RED BLOOD CELL COUNT (BEAKER) (test zdzs=926) 2.90 M/ L 3.93-5.22 HEMOGLOBIN (BEAKER) (test pyxf=827) 8.8 GM/DL 11.2-15.7 HEMATOCRIT (BEAKER) (test recd=655) 29.7 % 34.1-44.9 MEAN CORPUSCULAR VOLUME (BEAKER) (test kekg=031) 102.4 fL 79.4-94.8 MEAN CORPUSCULAR HEMOGLOBIN (BEAKER) (test 30.3 pg 25.6-32.2 gqty=639) MEAN CORPUSCULAR HEMOGLOBIN CONC (BEAKER) (test 29.6 GM/DL 32.2-35.5 gmam=756) RED CELL DISTRIBUTION WIDTH (BEAKER) (test 21.0 % 11.7-14.4 iwxp=451) PLATELET COUNT (BEAKER) (test mtiv=250) 270 K/CU MM 150-450 MEAN PLATELET VOLUME (BEAKER) (test krpx=714) 10.1 fL 9.4-12.3 NUCLEATED RED BLOOD CELLS (BEAKER) (test 0 /100 WBC 0-0 fjqp=676) POCT-GLUCOSE [id number] 00:38:00 Test Item Value Reference Range Comments POC-GLUCOSE METER (BEAKER) 198 mg/dL 70-[address] [facility] [address] [facility] (test xbqz=7558) [facility] [address] POCT-GLUCOSE [id number] 18:42:00 Test Item Value Reference Range Comments POC-GLUCOSE METER (BEAKER) 240 mg/dL 70-110 TESTED AT [address] (test asec=1345) [facility] [address] POCT-GLUCOSE [id number] 12:48:00 Test Item Value Reference Range Comments POC-GLUCOSE METER (BEAKER) 248 mg/dL 70-110 TESTED AT [address] (test feuv=3833) [place] [id number] RAD, CHEST, 1 VIEW, NON [id number] 08:53:00Reason for exam:->post opShould this be performed [...] Mckeon Verified Date/Time: 07/10/2018 08:53:53 Reading Location: [address] Reading Room POCT-GLUCOSE [id number] 06:33:00 Test Item Value Reference Range Comments POC-GLUCOSE METER (BEAKER) 129 mg/dL 70-110 TESTED AT [address] (test gzxh=2556) [facility] [address] POCT-GLUCOSE [id number] 05:36:00 Test Item Value Reference Range Comments POC-GLUCOSE METER (BEAKER) 55 mg/dL 70-110 TESTED AT [address] (test uqzh=6797) [place] [address] [id number] 04:15:00 Test Item Value Reference Range Comments PHOSPHORUS (BEAKER) (test anmr=262) 3.0 mg/dL 2.3-4.7 [id number] 04:15:00 Test Item Value Reference Range Comments MAGNESIUM (BEAKER) (test drvg=218) 2.0 mg/dL 1.6-2.6 BASIC METABOLIC [id number] 04:15:00 Test Item Value Reference Range Comments SODIUM (BEAKER) (test 138 meq/L 136-145 eemr=467) POTASSIUM (BEAKER) (test 4.5 meq/L 3.5-5.1 zbkx=104) CHLORIDE (BEAKER) (test 103 meq/L 98-107 aktw=022) CO2 (BEAKER) (test 27 meq/L 22-29 lumy=249) BLOOD UREA NITROGEN 32 mg/dL 7-21 (BEAKER) (test ofip=760) CREATININE (BEAKER) (test 1.55 mg/dL 0.57-1.25 lyzx=331) GLUCOSE RANDOM (BEAKER) 121 mg/dL 70-105 (test labl=113) CALCIUM (BEAKER) (test 8.8 mg/dL 8.4-10.2 rnfg=964) EGFR (BEAKER) (test 40 mL/min/1.73 sq m ESTIMATED GFR IS NOT duga=3174) ACCURATE CREATININE CLEARANCE IN PREDICTING GLOMERULAR FILTRATION RATE. ESTIMATED GFR IS NOT APPLICABLE FOR DIALYSIS PATIENTS. [id number] 03:41:00 Test Item Value Reference Range Comments PARTIAL THROMBOPLASTIN TIME (BEAKER) (test 50.1 seconds 22.5-36.0 wmrb=111) PROTHROMBIN TIME/[id number] 03:40:00 Test Item Value Reference Range Comments PROTIME (BEAKER) (test qpal=345) 14.6 seconds 11.7-14.7 INR (BEAKER) (test jlpd=281) 1.1 <=5.9 RECOMMENDED COUMADIN/WARFARIN INR THERAPY RANGESSTANDARD DOSE: 2.0 - 3.0 Includes: PROPHYLAXIS forvenous thrombosis, systemic embolization; TREATMENT for venous thrombosis and/or pulmonary embolus.HIGH RISK: Target INR is 2.5-3.5 for patients with mechanical heart valves.CBC (HEMOGRAM ONLY)2018-07-10 03:38:00 Test Item Value Reference Range Comments WHITE BLOOD CELL COUNT (BEAKER) (test mtmp=172) 6.3 K/ L 3.5-10.5 RED BLOOD CELL COUNT (BEAKER) (test gzim=373) 2.47 M/ L 3.93-5.22 HEMOGLOBIN (BEAKER) (test zghh=258) 7.6 GM/DL 11.2-15.7 HEMATOCRIT (BEAKER) (test adjz=267) 26.0 % 34.1-44.9 MEAN CORPUSCULAR VOLUME (BEAKER) (test wojd=030) 105.3 fL 79.4-94.8 MEAN CORPUSCULAR HEMOGLOBIN (BEAKER) (test 30.8 pg 25.6-32.2 zmes=864) MEAN CORPUSCULAR HEMOGLOBIN CONC (BEAKER) (test 29.2 GM/DL 32.2-35.5 fope=941) RED CELL DISTRIBUTION WIDTH (BEAKER) (test 17.1 % 11.7-14.4 qxqm=113) PLATELET COUNT (BEAKER) (test syth=988) 301 K/CU MM 150-450 MEAN PLATELET VOLUME (BEAKER) (test eoks=566) 10.0 fL 9.4-12.3 NUCLEATED RED BLOOD CELLS (BEAKER) (test 0 /100 WBC 0-0 uhht=156) POCT-GLUCOSE [id number] 00:03:00 Test Item Value Reference Range Comments POC-GLUCOSE METER (BEAKER) 317 mg/dL 70-110 Notified PAULA BERGER/TESTED AT [facility] (test tkbb=1989) [address] [place], [place] [id number] POCT-GLUCOSE [id number] 17:44:00 Test Item Value Reference Range Comments POC-GLUCOSE METER (BEAKER) 129 mg/dL 70-110 TESTED AT [address] (test owbv=3024) [place] [id number] POCT-GLUCOSE [id number] 12:13:00 Test Item Value Reference Range Comments POC-GLUCOSE METER (BEAKER) 283 mg/dL 70-110 TESTED AT [address] (test unrq=9691) [place] [id number] RAD, CHEST, 1 VIEW, NON [id number] 07:35:00Reason for exam:->post opShould this be performed [...] MDReport Verified Date/Time: 07/09/2018 07:35:48 Reading Location: [facility] B1 C013Y CT Body Reading Room POCT-GLUCOSE [id number] 05:13:00 Test Item Value Reference Range Comments POC-GLUCOSE METER (BEAKER) 186 mg/dL 70-[address] [facility] [address] [facility] [facility] (test smmn=0237) [facility] [address] [id number] 04:51:00 Test Item Value Reference Range Comments PHOSPHORUS (BEAKER) (test zhnx=967) 3.8 mg/dL 2.3-4.7 [id number] 04:51:00 Test Item Value Reference Range Comments MAGNESIUM (BEAKER) (test bkbm=550) 2.1 mg/dL 1.6-2.6 BASIC METABOLIC [id number] 04:51:00 Test Item Value Reference Range Comments SODIUM (BEAKER) (test 138 meq/L 136-145 pzal=619) POTASSIUM (BEAKER) (test 4.9 meq/L 3.5-5.1 ambu=059) CHLORIDE (BEAKER) (test 103 meq/L 98-107 tjuh=051) CO2 (BEAKER) (test 29 meq/L 22-29 dnqi=587) BLOOD UREA NITROGEN 33 mg/dL 7-21 (BEAKER) (test efzb=479) CREATININE (BEAKER) (test 1.78 mg/dL 0.57-1.25 dmfj=546) GLUCOSE RANDOM (BEAKER) 155 mg/dL 70-105 (test gkvp=921) CALCIUM (BEAKER) (test 9.0 mg/dL 8.4-10.2 lnbo=141) EGFR (BEAKER) (test 34 mL/min/1.73 sq m ESTIMATED GFR IS NOT jrza=2052) ACCURATE CREATININE CLEARANCE IN PREDICTING GLOMERULAR FILTRATION RATE. ESTIMATED GFR IS NOT APPLICABLE FOR DIALYSIS PATIENTS. [id number] 04:30:00 Test Item Value Reference Range Comments PARTIAL THROMBOPLASTIN TIME (BEAKER) (test 63.2 seconds 22.5-36.0 lqbw=804) PROTHROMBIN TIME/[id number] 04:29:00 Test Item Value Reference Range Comments PROTIME (BEAKER) (test qeki=364) 14.6 seconds 11.7-14.7 INR (BEAKER) (test espx=335) 1.1 <=5.9 RECOMMENDED COUMADIN/WARFARIN INR THERAPY RANGESSTANDARD DOSE: 2.0 - 3.0 Includes: PROPHYLAXIS forvenous thrombosis, systemic embolization; TREATMENT for venous thrombosis and/or pulmonary embolus.HIGH RISK: Target INR is 2.5-3.5 for patients with mechanical heart valves.CBC (HEMOGRAM ONLY)2018-07-09 04:18:00 Test Item Value Reference Range Comments WHITE BLOOD CELL COUNT (BEAKER) (test vsgu=326) 6.8 K/ L 3.5-10.5 RED BLOOD CELL COUNT (BEAKER) (test ghma=323) 2.73 M/ L 3.93-5.22 HEMOGLOBIN (BEAKER) (test wjbu=961) 8.4 GM/DL 11.2-15.7 HEMATOCRIT (BEAKER) (test gsxg=034) 28.7 % 34.1-44.9 MEAN CORPUSCULAR VOLUME (BEAKER) (test geeu=218) 105.1 fL 79.4-94.8 MEAN CORPUSCULAR HEMOGLOBIN (BEAKER) (test 30.8 pg 25.6-32.2 mvox=599) MEAN CORPUSCULAR HEMOGLOBIN CONC (BEAKER) (test 29.3 GM/DL 32.2-35.5 sdtn=629) RED CELL DISTRIBUTION WIDTH (BEAKER) (test 17.2 % 11.7-14.4 typq=194) PLATELET COUNT (BEAKER) (test cunh=282) 263 K/CU MM 150-450 MEAN PLATELET VOLUME (BEAKER) (test fjzo=873) 9.9 fL 9.4-12.3 NUCLEATED RED BLOOD CELLS (BEAKER) (test 0 /100 WBC 0-0 pdak=140) POCT-GLUCOSE [id number] 23:27:00 Test Item Value Reference Range Comments POC-GLUCOSE METER (BEAKER) 141 mg/dL 70-110 TESTED AT [address] (test fnft=0201) [facility] [id number] POCT-GLUCOSE [id number] 19:30:00 Test Item Value Reference Range Comments POC-GLUCOSE METER (BEAKER) 234 mg/dL 70-110 TESTED AT [place] [id number] [facility] (test sytg=2950) [facility] [address] POCT-GLUCOSE [id number] 11:55:00 Test Item Value Reference Range Comments POC-GLUCOSE METER (BEAKER) 317 mg/dL 70-110 TESTED AT [place] [id number] [facility] (test pysf=9645) [facility] [address] [id number] 05:14:00 Test Item Value Reference Range Comments PHOSPHORUS (BEAKER) (test nwsc=673) 3.8 mg/dL 2.3-4.7 [id number] 05:14:00 Test Item Value Reference Range Comments MAGNESIUM (BEAKER) (test mgwz=822) 2.1 mg/dL 1.6-2.6 BASIC METABOLIC [id number] 05:14:00 Test Item Value Reference Range Comments SODIUM (BEAKER) (test 137 meq/L 136-145 mpbw=426) POTASSIUM (BEAKER) (test 4.6 meq/L 3.5-5.1 ynua=065) CHLORIDE (BEAKER) (test 103 meq/L 98-107 atai=949) CO2 (BEAKER) (test 26 meq/L 22-29 zync=715) BLOOD UREA NITROGEN 31 mg/dL 7-21 (BEAKER) (test xjkc=176) CREATININE (BEAKER) (test 1.63 mg/dL 0.57-1.25 fxuu=591) GLUCOSE RANDOM (BEAKER) 244 mg/dL 70-105 (test syay=349) CALCIUM (BEAKER) (test 9.2 mg/dL 8.4-10.2 gltq=311) EGFR (BEAKER) (test 38 mL/min/1.73 sq m ESTIMATED GFR IS NOT lbjo=1773) ACCURATE CREATININE CLEARANCE IN PREDICTING GLOMERULAR FILTRATION RATE. ESTIMATED GFR IS NOT APPLICABLE FOR DIALYSIS PATIENTS. RAD, CHEST, 1 VIEW, NON [id number] 04:48:00Reason for exam:->post opShould this be performed [...] Verified Date/Time: 07/08/2018 04:48:56 Reading Location : [address] Reading Room Electronicallysigned by: NAVI GARCIA M.D. on 07/08/2018 04:48 [id number] 04:24:00 Test Item Value Reference Range Comments PARTIAL THROMBOPLASTIN TIME (BEAKER) (test 54.7 seconds 22.5-36.0 xakk=016) PROTHROMBIN [id number] 04:23:00 Test Item Value Reference Range Comments PROTIME (BEAKER) (test kilq=719) 14.8 seconds 11.7-14.7 INR (BEAKER) (test hxip=356) 1.2 <=5.9 RECOMMENDED COUMADIN/WARFARIN INR THERAPY RANGESSTANDARD DOSE: 2.0 - 3.0 Includes: PROPHYLAXIS forvenous thrombosis, systemic embolization; TREATMENT for venous thrombosis and/or pulmonary embolus.HIGH RISK: Target INR is 2.5-3.5 for patients with mechanical heart valves.CBC (HEMOGRAM ONLY)2018-07-08 04:02:00 Test Item Value Reference Range Comments WHITE BLOOD CELL COUNT (BEAKER) (test mjnt=728) 6.7 K/ L 3.5-10.5 RED BLOOD CELL COUNT (BEAKER) (test egbf=171) 2.79 M/ L 3.93-5.22 HEMOGLOBIN (BEAKER) (test fowx=549) 8.6 GM/DL 11.2-15.7 HEMATOCRIT (BEAKER) (test zlgm=970) 29.0 % 34.1-44.9 MEAN CORPUSCULAR VOLUME (BEAKER) (test mscb=691) 103.9 fL 79.4-94.8 MEAN CORPUSCULAR HEMOGLOBIN (BEAKER) (test 30.8 pg 25.6-32.2 xsms=129) MEAN CORPUSCULAR HEMOGLOBIN CONC (BEAKER) (test 29.7 GM/DL 32.2-35.5 vlpk=831) RED CELL DISTRIBUTION WIDTH (BEAKER) (test 17.2 % 11.7-14.4 upso=397) PLATELET COUNT (BEAKER) (test hpfm=289) 295 K/CU MM 150-450 MEAN PLATELET VOLUME (BEAKER) (test ocki=862) 10.2 fL 9.4-12.3 NUCLEATED RED BLOOD CELLS (BEAKER) (test 0 /100 WBC 0-0 scgf=113) RAD, CHEST, 1 VIEW, NON [id number] 08:41:00Reason for exam:->post opShould this be performed [...] MDReport Verified Date/Time: 07/07/2018 08:41:39 Reading Location: [facility] Radiology Reading Room [id number] 05:37:00 Test Item Value Reference Range Comments PHOSPHORUS (BEAKER) (test exmk=708) 3.0 mg/dL 2.3-4.7 [id number] 05:37:00 Test Item Value Reference Range Comments MAGNESIUM (BEAKER) (test fykl=642) 2.1 mg/dL 1.6-2.6 BASIC METABOLIC [id number] 05:37:00 Test Item Value Reference Range Comments SODIUM (BEAKER) (test 137 meq/L 136-145 fzbo=226) POTASSIUM (BEAKER) (test 4.6 meq/L 3.5-5.1 xcfw=534) CHLORIDE (BEAKER) (test 102 meq/L 98-107 pfzt=453) CO2 (BEAKER) (test 25 meq/L 22-29 ykwp=788) BLOOD UREA NITROGEN 27 mg/dL 7-21 (BEAKER) (test znce=373) CREATININE (BEAKER) (test 1.44 mg/dL 0.57-1.25 dhfb=158) GLUCOSE RANDOM (BEAKER) 191 mg/dL 70-105 (test rbxz=599) CALCIUM (BEAKER) (test 9.2 mg/dL 8.4-10.2 orla=778) EGFR (BEAKER) (test 43 mL/min/1.73 sq m ESTIMATED GFR IS NOT hkfp=7720) ACCURATE CREATININE CLEARANCE IN PREDICTING GLOMERULAR FILTRATION RATE. ESTIMATED GFR IS NOT APPLICABLE FOR DIALYSIS PATIENTS. [id number] 05:12:00 Test Item Value Reference Range Comments PARTIAL THROMBOPLASTIN TIME (BEAKER) (test 42.9 seconds 22.5-36.0 pihp=329) PROTHROMBIN TIME/[id number] 05:11:00 Test Item Value Reference Range Comments PROTIME (BEAKER) (test sknj=838) 14.1 seconds 11.7-14.7 INR (BEAKER) (test xzlk=955) 1.1 <=5.9 RECOMMENDED COUMADIN/WARFARIN INR THERAPY RANGESSTANDARD DOSE: 2.0 - 3.0 Includes: PROPHYLAXIS forvenous thrombosis, systemic embolization; TREATMENT for venous thrombosis and/or pulmonary embolus.HIGH RISK: Target INR is 2.5-3.5 for patients with mechanical heart valves.CBC (HEMOGRAM ONLY)2018-07-07 05:01:00 Test Item Value Reference Range Comments WHITE BLOOD CELL COUNT (BEAKER) (test kpjb=023) 6.9 K/ L 3.5-10.5 RED BLOOD CELL COUNT (BEAKER) (test gyru=897) 2.84 M/ L 3.93-5.22 HEMOGLOBIN (BEAKER) (test hgpw=151) 8.8 GM/DL 11.2-15.7 HEMATOCRIT (BEAKER) (test crud=068) 29.2 % 34.1-44.9 MEAN CORPUSCULAR VOLUME (BEAKER) (test nvkp=714) 102.8 fL 79.4-94.8 MEAN CORPUSCULAR HEMOGLOBIN (BEAKER) (test 31.0 pg 25.6-32.2 wjhh=156) MEAN CORPUSCULAR HEMOGLOBIN CONC (BEAKER) (test 30.1 GM/DL 32.2-35.5 mqyn=333) RED CELL DISTRIBUTION WIDTH (BEAKER) (test 17.0 % 11.7-14.4 vfst=379) PLATELET COUNT (BEAKER) (test vgks=982) 270 K/CU MM 150-450 MEAN PLATELET VOLUME (BEAKER) (test ucrk=341) 10.2 fL 9.4-12.3 NUCLEATED RED BLOOD CELLS (BEAKER) (test 0 /100 WBC 0-0 obwc=460) RAD, CHEST, 1 VIEW, NON [id number] 17:48:00Reason for exam:->Confirm PICC line placementShould this [...] or definite pleural effusion. Signed: Geo Rico [facility] Verified Date/Time: 07/06/2018 17:48:54 Reading Location: [address] Consult Reading Room Electronically signed by: GEO RICO M.D. on 2018 05:48 [id number] 17:23:00 Test Item Value Reference Range Comments MAGNESIUM (BEAKER) (test ltof=184) 2.2 mg/dL 1.6-2.6 BASIC METABOLIC [id number] 17:23:00 Test Item Value Reference Range Comments SODIUM (BEAKER) (test 137 meq/L 136-145 tmss=747) POTASSIUM (BEAKER) (test 4.9 meq/L 3.5-5.1 wuzt=277) CHLORIDE (BEAKER) (test 103 meq/L 98-107 emng=219) CO2 (BEAKER) (test 25 meq/L 22-29 hpvr=338) BLOOD UREA NITROGEN 25 mg/dL 7-21 (BEAKER) (test qkuf=245) CREATININE (BEAKER) (test 1.41 mg/dL 0.57-1.25 mjxl=267) GLUCOSE RANDOM (BEAKER) 219 mg/dL 70-105 (test vdyv=894) CALCIUM (BEAKER) (test 9.0 mg/dL 8.4-10.2 hjhv=998) EGFR (BEAKER) (test 45 mL/min/1.73 sq m ESTIMATED GFR IS NOT ewgb=5457) ACCURATE CREATININE CLEARANCE IN PREDICTING GLOMERULAR FILTRATION RATE. ESTIMATED GFR IS NOT APPLICABLE FOR DIALYSIS PATIENTS. BLOOD GAS, [id number] 16:33:00 Test Item Value Reference Range Comments PH ARTERIAL (BEAKER) (test uupa=298) 7.46 7.35-7.45 PCO2 ARTERIAL (BEAKER) (test gewq=456) 42 mmHg 35-45 PO2 ARTERIAL (BEAKER) (test mvss=176) 63 mmHg 80-90 O2 SATURATION ARTERIAL (BEAKER) (test wxpi=267) 93.1 % 96.0-97.0 HCO3 ARTERIAL (BEAKER) (test hrjo=928) 29 mmol/L 21-29 BASE EXCESS ARTERIAL (BEAKER) (test lqjr=390) 4.4 mmol/L -2.0-3.0 PATIENT TEMPERATURE (BEAKER) (test udmo=4974) 37.0 C FIO2 (BEAKER) (test khva=6503) 32.0 % RAD, CHEST, 1 VIEW, NON [id number] 13:22:00Reason for exam:->post opShould this be performed at the bedside?->YesFINAL REPORT Chest one view. Clinical history: post op Comparison: 07/05/2018 Discussion: A frontal chest is provided. Cardiomediastinal contours are unchanged. A left IJ line is in stable position. There is mild pulmonary edema. No new consolidation. No pneumothorax. Small bilateral pleural effusions are present. Signed: Morgan Cheng Verified Date/Time: 07/06/2018 13:22:02 Reading Location: [address] Consult Reading Room [id number] 04:30:00 Test Item Value Reference Range Comments PHOSPHORUS (BEAKER) (test axrs=705) 3.2 mg/dL 2.3-4.7 [id number] 04:30:00 Test Item Value Reference Range Comments MAGNESIUM (BEAKER) (test pyeb=960) 2.2 mg/dL 1.6-2.6 BASIC METABOLIC [id number] 04:30:00 Test Item Value Reference Range Comments SODIUM (BEAKER) (test 138 meq/L 136-145 ykqf=199) POTASSIUM (BEAKER) (test 4.4 meq/L 3.5-5.1 pfui=213) CHLORIDE (BEAKER) (test 104 meq/L 98-107 iziz=858) CO2 (BEAKER) (test 28 meq/L 22-29 lefc=193) BLOOD UREA NITROGEN 25 mg/dL 7-21 (BEAKER) (test cbzg=468) CREATININE (BEAKER) (test 1.43 mg/dL 0.57-1.25 nyoq=284) GLUCOSE RANDOM (BEAKER) 207 mg/dL 70-105 (test yvun=826) CALCIUM (BEAKER) (test 8.9 mg/dL 8.4-10.2 ovvw=401) EGFR (BEAKER) (test 44 mL/min/1.73 sq m ESTIMATED GFR IS NOT nrim=0524) ACCURATE CREATININE CLEARANCE IN PREDICTING GLOMERULAR FILTRATION RATE. ESTIMATED GFR IS NOT APPLICABLE FOR DIALYSIS PATIENTS. PROTHROMBIN TIME/[id number] 04:06:00 Test Item Value Reference Range Comments PROTIME (BEAKER) (test kzcm=916) 14.6 seconds 11.7-14.7 INR (BEAKER) (test yizj=726) 1.1 <=5.9 RECOMMENDED COUMADIN/WARFARIN INR THERAPY RANGESSTANDARD DOSE: 2.0 - 3.0 Includes: PROPHYLAXIS forvenous thrombosis, systemic embolization; TREATMENT for venous thrombosis and/or pulmonary embolus.HIGH RISK: Target INR is 2.5-3.5 for patients with mechanical heart valves.[id number] 04:06:00 Test Item Value Reference Range Comments PARTIAL THROMBOPLASTIN TIME (BEAKER) (test 47.8 seconds 22.5-36.0 ptrl=047) CBC (HEMOGRAM ONLY)2018-07-06 03:53:00 Test Item Value Reference Range Comments WHITE BLOOD CELL COUNT (BEAKER) (test bzvk=056) 7.1 K/ L 3.5-10.5 RED BLOOD CELL COUNT (BEAKER) (test lyiw=673) 2.77 M/ L 3.93-5.22 HEMOGLOBIN (BEAKER) (test imqa=780) 8.4 GM/DL 11.2-15.7 HEMATOCRIT (BEAKER) (test ylpu=622) 28.6 % 34.1-44.9 MEAN CORPUSCULAR VOLUME (BEAKER) (test btyc=808) 103.2 fL 79.4-94.8 MEAN CORPUSCULAR HEMOGLOBIN (BEAKER) (test 30.3 pg 25.6-32.2 ujob=203) MEAN CORPUSCULAR HEMOGLOBIN CONC (BEAKER) (test 29.4 GM/DL 32.2-35.5 ctvw=906) RED CELL DISTRIBUTION WIDTH (BEAKER) (test 17.1 % 11.7-14.4 bcon=856) PLATELET COUNT (BEAKER) (test tzsg=629) 267 K/CU MM 150-450 MEAN PLATELET VOLUME (BEAKER) (test mhed=651) 9.9 fL 9.4-12.3 NUCLEATED RED BLOOD CELLS (BEAKER) (test 0 /100 WBC 0-0 dzbi=898) HEPATIC FUNCTION [id number] 17:51:00 Test Item Value Reference Range Comments TOTAL PROTEIN (BEAKER) (test edcc=668) 6.2 gm/dL 6.0-8.3 ALBUMIN (BEAKER) (test wuoo=0232) 3.2 g/dL 3.5-5.0 BILIRUBIN TOTAL (BEAKER) (test sovm=639) 0.7 mg/dL 0.2-1.2 BILIRUBIN DIRECT (BEAKER) (test wfnz=404) 0.5 mg/dL 0.1-0.5 ALKALINE PHOSPHATASE (BEAKER) (test lmpf=611) 84 U/L 40-150 AST (SGOT) (BEAKER) (test eltm=573) 16 U/L 5-34 ALT (SGPT) (BEAKER) (test rqdc=949) 9 U/L 6-55 RAD, CHEST, 1 VIEW, NON [id number] 08:39:00Reason for exam:->post opShould this be performed [...] MDReport Verified Date/Time: 07/05/2018 08:39:46 Reading Location: [facility] Radiology Reading Room [id number] 04:33:00 Test Item Value Reference Range Comments MAGNESIUM (BEAKER) (test 2.6 mg/dL 1.6-2.6 Specimen slightly hemolyzed ergi=339) [id number] 04:33:00 Test Item Value Reference Range Comments PHOSPHORUS (BEAKER) (test 2.9 mg/dL 2.3-4.7 Specimen slightly hemolyzed buxq=430) BASIC METABOLIC [id number] 04:33:00 Test Item Value Reference Range Comments SODIUM (BEAKER) (test 139 meq/L 136-145 tael=211) POTASSIUM (BEAKER) (test 4.5 meq/L 3.5-5.1 Specimen slightly etfp=201) hemolyzed CHLORIDE (BEAKER) (test 105 meq/L 98-107 iozs=710) CO2 (BEAKER) (test 28 meq/L 22-29 enrm=427) BLOOD UREA NITROGEN 26 mg/dL 7-21 (BEAKER) (test xrye=536) CREATININE (BEAKER) (test 1.32 mg/dL 0.57-1.25 Specimen slightly edkv=331) hemolyzed GLUCOSE RANDOM (BEAKER) 111 mg/dL 70-105 (test wasv=441) CALCIUM (BEAKER) (test 8.5 mg/dL 8.4-10.2 rnol=089) EGFR (BEAKER) (test 48 mL/min/1.73 sq m ESTIMATED GFR IS NOT kwnp=9038) ACCURATE CREATININE CLEARANCE IN PREDICTING GLOMERULAR FILTRATION RATE. ESTIMATED GFR IS NOT APPLICABLE FOR DIALYSIS PATIENTS. [id number] 04:23:00 Test Item Value Reference Range Comments PARTIAL THROMBOPLASTIN TIME (BEAKER) (test 49.0 seconds 22.5-36.0 xxhi=785) PROTHROMBIN [id number] 04:22:00 Test Item Value Reference Range Comments PROTIME (BEAKER) (test uzck=241) 14.3 seconds 11.7-14.7 INR (BEAKER) (test xbmb=433) 1.1 <=5.9 RECOMMENDED COUMADIN/WARFARIN INR THERAPY RANGESSTANDARD DOSE: 2.0 - 3.0 Includes: PROPHYLAXIS forvenous thrombosis, systemic embolization; TREATMENT for venous thrombosis and/or pulmonary embolus.HIGH RISK: Target INR is 2.5-3.5 for patients with mechanical heart valves.CBC (HEMOGRAM ONLY)2018-07-05 04:13:00 Test Item Value Reference Range Comments WHITE BLOOD CELL COUNT (BEAKER) (test rzuw=089) 6.6 K/ L 3.5-10.5 RED BLOOD CELL COUNT (BEAKER) (test oidi=285) 2.60 M/ L 3.93-5.22 HEMOGLOBIN (BEAKER) (test ikby=204) 7.9 GM/DL 11.2-15.7 HEMATOCRIT (BEAKER) (test jhpu=070) 26.5 % 34.1-44.9 MEAN CORPUSCULAR VOLUME (BEAKER) (test fyuy=106) 101.9 fL 79.4-94.8 MEAN CORPUSCULAR HEMOGLOBIN (BEAKER) (test 30.4 pg 25.6-32.2 mlvs=951) MEAN CORPUSCULAR HEMOGLOBIN CONC (BEAKER) (test 29.8 GM/DL 32.2-35.5 wdvx=124) RED CELL DISTRIBUTION WIDTH (BEAKER) (test 17.4 % 11.7-14.4 hjra=148) PLATELET COUNT (BEAKER) (test rwxo=639) 248 K/CU MM 150-450 MEAN PLATELET VOLUME (BEAKER) (test kdnh=590) 10.4 fL 9.4-12.3 NUCLEATED RED BLOOD CELLS (BEAKER) (test 0 /100 WBC 0-0 tgqf=359) POCT-GLUCOSE [id number] 18:22:00 Test Item Value Reference Range Comments POC-GLUCOSE METER (BEAKER) 166 mg/dL 70-[address] [facility] [address] (test kszc=4064) [facility] [address] RAD, CHEST, 1 VIEW, NON [id number] 08:37:00Reason for exam:->post opShould this be performed [...] Diaz Verified Date/Time: 07/04/2018 08:37:54 Reading Location: [facility] Radiology Reading Room Electronically signed by: VIRGINIA DIAZ M.D. on 2018 08:37 [id number] 04:36:00 Test Item Value Reference Range Comments PARTIAL THROMBOPLASTIN TIME (BEAKER) (test 49.7 seconds 22.5-36.0 iaxq=340) PROTHROMBIN TIME/[id number] 04:35:00 Test Item Value Reference Range Comments PROTIME (BEAKER) (test yxuw=431) 15.0 seconds 11.7-14.7 INR (BEAKER) (test gztp=197) 1.2 <=5.9 RECOMMENDED COUMADIN/WARFARIN INR THERAPY RANGESSTANDARD DOSE: 2.0 - 3.0 Includes: PROPHYLAXIS forvenous thrombosis, systemic embolization; TREATMENT for venous thrombosis and/or pulmonary embolus.HIGH RISK: Target INR is 2.5-3.5 for patients with mechanical heart valves.[id number] 04:35:00 Test Item Value Reference Range Comments PHOSPHORUS (BEAKER) (test thao=383) 2.5 mg/dL 2.3-4.7 [id number] 04:35:00 Test Item Value Reference Range Comments MAGNESIUM (BEAKER) (test zist=267) 2.2 mg/dL 1.6-2.6 BASIC METABOLIC [id number] 04:35:00 Test Item Value Reference Range Comments SODIUM (BEAKER) (test 138 meq/L 136-145 ptzn=652) POTASSIUM (BEAKER) (test 3.8 meq/L 3.5-5.1 lkoh=394) CHLORIDE (BEAKER) (test 102 meq/L 98-107 wmfn=900) CO2 (BEAKER) (test 30 meq/L 22-29 luaj=186) BLOOD UREA NITROGEN 28 mg/dL 7-21 (BEAKER) (test pbjn=935) CREATININE (BEAKER) (test 1.48 mg/dL 0.57-1.25 fqvk=631) GLUCOSE RANDOM (BEAKER) 175 mg/dL 70-105 (test xoyt=316) CALCIUM (BEAKER) (test 8.6 mg/dL 8.4-10.2 dhrl=249) EGFR (BEAKER) (test 42 mL/min/1.73 sq m ESTIMATED GFR IS NOT petn=6571) ACCURATE CREATININE CLEARANCE IN PREDICTING GLOMERULAR FILTRATION RATE. ESTIMATED GFR IS NOT APPLICABLE FOR DIALYSIS PATIENTS. CBC (HEMOGRAM ONLY)2018-07-04 04:16:00 Test Item Value Reference Range Comments WHITE BLOOD CELL COUNT (BEAKER) (test orpd=525) 7.4 K/ L 3.5-10.5 RED BLOOD CELL COUNT (BEAKER) (test mzuf=053) 2.76 M/ L 3.93-5.22 HEMOGLOBIN (BEAKER) (test tmql=253) 8.5 GM/DL 11.2-15.7 HEMATOCRIT (BEAKER) (test xphi=808) 28.1 % 34.1-44.9 MEAN CORPUSCULAR VOLUME (BEAKER) (test gdpm=917) 101.8 fL 79.4-94.8 MEAN CORPUSCULAR HEMOGLOBIN (BEAKER) (test 30.8 pg 25.6-32.2 rdhu=004) MEAN CORPUSCULAR HEMOGLOBIN CONC (BEAKER) (test 30.2 GM/DL 32.2-35.5 jivm=592) RED CELL DISTRIBUTION WIDTH (BEAKER) (test 17.7 % 11.7-14.4 xugn=168) PLATELET COUNT (BEAKER) (test yrkz=709) 268 K/CU MM 150-450 MEAN PLATELET VOLUME (BEAKER) (test fjue=733) 10.2 fL 9.4-12.3 NUCLEATED RED BLOOD CELLS (BEAKER) (test 0 /100 WBC 0-0 wuft=841) [id number] 10:56:00 Test Item Value Reference Range Comments POTASSIUM (BEAKER) (test aocq=697) 4.3 meq/L 3.5-5.1 Check Serum Potassium level 30 minutes after IV potassium replacement completed.RAD, CHEST, 1 VIEW, NON [id number] 08:24:00Reason for exam:-> post opShould this be [...] significant change. Signed: Willian Mckeon Verified Date/Time: 07/03/2018 08:24:18 Reading Location: [facility] Radiology Reading Room POCT-GLUCOSE [id number] 08:16:00 Test Item Value Reference Range Comments POC-GLUCOSE METER (BEAKER) 164 mg/dL 70-[address] [facility] [address] [place] [address] (test hilt=5288) [facility] [address] RAD, ABDOMEN/KUB, 1 VIEW [id number] 06:21:00Reason for exam:->abd painShould this be performed [...] MDReport Verified Date/Time: 07/03/2018 06:21:16 Reading Location: [address] Transitional Reading Room [id number] 04:00:00 Test Item Value Reference Range Comments PHOSPHORUS (BEAKER) (test hdob=316) 2.3 mg/dL 2.3-4.7 [id number] 04:00:00 Test Item Value Reference Range Comments MAGNESIUM (BEAKER) (test xtul=494) 1.9 mg/dL 1.6-2.6 BASIC METABOLIC [id number] 04:00:00 Test Item Value Reference Range Comments SODIUM (BEAKER) (test 139 meq/L 136-145 laez=417) POTASSIUM (BEAKER) (test 3.5 meq/L 3.5-5.1 ntow=173) CHLORIDE (BEAKER) (test 103 meq/L 98-107 sift=690) CO2 (BEAKER) (test 27 meq/L 22-29 ghzv=740) BLOOD UREA NITROGEN 27 mg/dL 7-21 (BEAKER) (test jfaq=305) CREATININE (BEAKER) (test 1.40 mg/dL 0.57-1.25 dqdz=999) GLUCOSE RANDOM (BEAKER) 123 mg/dL 70-105 (test xjfz=027) CALCIUM (BEAKER) (test 8.9 mg/dL 8.4-10.2 teqs=018) EGFR (BEAKER) (test 45 mL/min/1.73 sq m ESTIMATED GFR IS NOT bwag=0825) ACCURATE CREATININE CLEARANCE IN PREDICTING GLOMERULAR FILTRATION RATE. ESTIMATED GFR IS NOT APPLICABLE FOR DIALYSIS PATIENTS. [id number] 03:59:00 Test Item Value Reference Range Comments PARTIAL THROMBOPLASTIN TIME (BEAKER) (test 48.9 seconds 22.5-36.0 yakm=771) PROTHROMBIN TIME/[id number] 03:58:00 Test Item Value Reference Range Comments PROTIME (BEAKER) (test aviv=597) 15.3 seconds 11.7-14.7 INR (BEAKER) (test zcia=487) 1.2 <=5.9 RECOMMENDED COUMADIN/WARFARIN INR THERAPY RANGESSTANDARD DOSE: 2.0 - 3.0 Includes: PROPHYLAXIS forvenous thrombosis, systemic embolization; TREATMENT for venous thrombosis and/or pulmonary embolus.HIGH RISK: Target INR is 2.5-3.5 for patients with mechanical heart valves.CBC (HEMOGRAM ONLY)2018-07-03 03:39:00 Test Item Value Reference Range Comments WHITE BLOOD CELL COUNT (BEAKER) (test bbck=163) 8.1 K/ L 3.5-10.5 RED BLOOD CELL COUNT (BEAKER) (test xhjv=600) 2.90 M/ L 3.93-5.22 HEMOGLOBIN (BEAKER) (test owky=900) 9.0 GM/DL 11.2-15.7 HEMATOCRIT (BEAKER) (test lcer=500) 29.4 % 34.1-44.9 MEAN CORPUSCULAR VOLUME (BEAKER) (test wqfg=379) 101.4 fL 79.4-94.8 MEAN CORPUSCULAR HEMOGLOBIN (BEAKER) (test 31.0 pg 25.6-32.2 htss=670) MEAN CORPUSCULAR HEMOGLOBIN CONC (BEAKER) (test 30.6 GM/DL 32.2-35.5 vjtt=653) RED CELL DISTRIBUTION WIDTH (BEAKER) (test 17.8 % 11.7-14.4 tklu=299) PLATELET COUNT (BEAKER) (test kixd=270) 245 K/CU MM 150-450 MEAN PLATELET VOLUME (BEAKER) (test uxlk=508) 9.8 fL 9.4-12.3 NUCLEATED RED BLOOD CELLS (BEAKER) (test 0 /100 WBC 0-0 euzh=182) OXYGEN SATURATION, [id number] 10:53:00 Test Item Value Reference Range Comments O2 SATURATION (MEASURED) (BEAKER) (test ozkp=2325) 50.1 % OXYGEN SATURATION, [id number] 08:54:00 Test Item Value Reference Range Comments O2 SATURATION (MEASURED) (BEAKER) (test wnac=2654) 45.3 % BLOOD GAS, [id number] 08:54:00 Test Item Value Reference Range Comments PH ARTERIAL (BEAKER) (test lrki=170) 7.49 7.35-7.45 PCO2 ARTERIAL (BEAKER) (test dowp=228) 39 mmHg 35-45 PO2 ARTERIAL (BEAKER) (test adcw=052) 64 mmHg 80-90 O2 SATURATION ARTERIAL (BEAKER) (test nksg=439) 94.6 % 96.0-97.0 HCO3 ARTERIAL (BEAKER) (test hbxs=147) 29 mmol/L 21-29 BASE EXCESS ARTERIAL (BEAKER) (test mnwm=554) 5.1 mmol/L -2.0-3.0 PATIENT TEMPERATURE (BEAKER) (test nmiu=5510) 36.1 C FIO2 (BEAKER) (test kzvz=7743) 32.0 % RAD, CHEST, 1 VIEW, NON [id number] 06:40:00Reason for exam:->ETTShould this be performed at the bedside?->YesFINAL REPORT RAD , CHEST, 1 VIEW, NON DEPT INDICATION: ETT COMPARISON: Prior day's exam FINDINGS : Portable frontal view of the chest. IMPRESSION: Support Lines: Stable. Lungs and pleura: Unchanged airspace and pleural opacities. No pneumothorax.Heart and mediastinum: Stable contours. Stable surgical changes.Additional findings: None. Signed: Maryana Spann Verified Date/Time: 07/02/2018 06:40:32 Reading Location: [address] Transitional Reading Room CBC W/PLT COUNT & AUTO [id number] 05:31 :00 Test Item Value Reference Range Comments WHITE BLOOD CELL COUNT (BEAKER) (test pcbx=730) 7.9 K/ L 3.5-10.5 RED BLOOD CELL COUNT (BEAKER) (test wlpf=511) 2.83 M/ L 3.93-5.22 HEMOGLOBIN (BEAKER) (test fpud=624) 8.6 GM/DL 11.2-15.7 HEMATOCRIT (BEAKER) (test wrrh=282) 28.4 % 34.1-44.9 MEAN CORPUSCULAR VOLUME (BEAKER) (test wsfk=841) 100.4 fL 79.4-94.8 MEAN CORPUSCULAR HEMOGLOBIN (BEAKER) (test 30.4 pg 25.6-32.2 ppti=481) MEAN CORPUSCULAR HEMOGLOBIN CONC (BEAKER) (test 30.3 GM/DL 32.2-35.5 votp=253) RED CELL DISTRIBUTION WIDTH (BEAKER) (test 17.9 % 11.7-14.4 wtwt=320) PLATELET COUNT (BEAKER) (test lpra=852) 222 K/CU MM 150-450 MEAN PLATELET VOLUME (BEAKER) (test ksad=168) 9.9 fL 9.4-12.3 NUCLEATED RED BLOOD CELLS (BEAKER) (test 0 /100 WBC 0-0 cqfe=573) NEUTROPHILS RELATIVE PERCENT (BEAKER) (test 85 % snqk=601) LYMPHOCYTES RELATIVE PERCENT (BEAKER) (test 6 % jelk=197) MONOCYTES RELATIVE PERCENT (BEAKER) (test 8 % azem=078) EOSINOPHILS RELATIVE PERCENT (BEAKER) (test 1 % mhik=813) BASOPHILS RELATIVE PERCENT (BEAKER) (test 0 % laer=757) NEUTROPHILS ABSOLUTE COUNT (BEAKER) (test 6.67 K/ L 1.56-6.13 gppb=021) LYMPHOCYTES ABSOLUTE COUNT (BEAKER) (test 0.46 K/ L 1.18-3.74 elsc=042) MONOCYTES ABSOLUTE COUNT (BEAKER) (test 0.64 K/ L 0.24-0.36 qmve=957) EOSINOPHILS ABSOLUTE COUNT (BEAKER) (test 0.06 K/ L 0.04-0.36 igze=644) BASOPHILS ABSOLUTE COUNT (BEAKER) (test 0.02 K/ L 0.01-0.08 jgxp=504) IMMATURE GRANULOCYTES-RELATIVE PERCENT (BEAKER) 1 % 0-1 (test mcbu=0009) BASIC METABOLIC [id number] 04:54:00 Test Item Value Reference Range Comments SODIUM (BEAKER) (test 140 meq/L 136-145 bfby=622) POTASSIUM (BEAKER) (test 3.7 meq/L 3.5-5.1 ucoi=322) CHLORIDE (BEAKER) (test 104 meq/L 98-107 ohsb=497) CO2 (BEAKER) (test 28 meq/L 22-29 vvcw=499) BLOOD UREA NITROGEN 29 mg/dL 7-21 (BEAKER) (test dsti=243) CREATININE (BEAKER) (test 1.49 mg/dL 0.57-1.25 ayam=361) GLUCOSE RANDOM (BEAKER) 107 mg/dL 70-105 (test xzky=129) CALCIUM (BEAKER) (test 8.9 mg/dL 8.4-10.2 ulol=765) EGFR (BEAKER) (test 42 mL/min/1.73 sq m ESTIMATED GFR IS NOT hdlx=0597) ACCURATE CREATININE CLEARANCE IN PREDICTING GLOMERULAR FILTRATION RATE. ESTIMATED GFR IS NOT APPLICABLE FOR DIALYSIS PATIENTS. BASIC METABOLIC [id number] 18:41:00 Test Item Value Reference Range Comments SODIUM (BEAKER) (test 140 meq/L 136-145 cijd=237) POTASSIUM (BEAKER) (test 4.1 meq/L 3.5-5.1 tgjh=045) CHLORIDE (BEAKER) (test 104 meq/L 98-107 wnni=182) CO2 (BEAKER) (test 25 meq/L 22-29 mkqc=412) BLOOD UREA NITROGEN 31 mg/dL 7-21 (BEAKER) (test nzoy=610) CREATININE (BEAKER) (test 1.55 mg/dL 0.57-1.25 wswu=108) GLUCOSE RANDOM (BEAKER) 127 mg/dL 70-105 (test jryl=833) CALCIUM (BEAKER) (test 9.0 mg/dL 8.4-10.2 mvip=721) EGFR (BEAKER) (test 40 mL/min/1.73 sq m ESTIMATED GFR IS NOT ddqv=4633) ACCURATE CREATININE CLEARANCE IN PREDICTING GLOMERULAR FILTRATION RATE. ESTIMATED GFR IS NOT APPLICABLE FOR DIALYSIS PATIENTS. BLOOD GAS, [id number] 18:12:00 Test Item Value Reference Range Comments PH ARTERIAL (BEAKER) (test gfnf=889) 7.50 7.35-7.45 PCO2 ARTERIAL (BEAKER) (test xdjq=719) 39 mmHg 35-45 PO2 ARTERIAL (BEAKER) (test miks=137) 59 mmHg 80-90 O2 SATURATION ARTERIAL (BEAKER) (test sjlb=397) 92.7 % 96.0-97.0 HCO3 ARTERIAL (BEAKER) (test jfgf=391) 30 mmol/L 21-29 BASE EXCESS ARTERIAL (BEAKER) (test yyxm=338) 6.0 mmol/L -2.0-3.0 PATIENT TEMPERATURE (BEAKER) (test sehw=1940) 36.9 C FIO2 (BEAKER) (test strb=9004) 32.0 % RAD, CHEST, 1 VIEW, NON [id number] 07:32:00Reason for exam:->ETTShould this be performed at the bedside?->YesFINAL REPORT Chest one view. Clinical history: ETT Comparison: 06/30/2018 Discussion: A frontal chest is provided. Cardiomediastinal contours are unchanged. ET has been removed. Left IJ line is unchanged. There is unchanged mild vascular congestion and interstitial edema. Probable small left effusion. No pneumothorax. Signed: Morgan Chengeport Verified Date/Time: 07/01/2018 07:32: 43 Reading Location: [facility] C013 Neuro Reading Room BASIC METABOLIC [id number] 06:20:00 Test Item Value Reference Range Comments SODIUM (BEAKER) (test 142 meq/L 136-145 gvid=309) POTASSIUM (BEAKER) (test 4.3 meq/L 3.5-5.1 brkg=555) CHLORIDE (BEAKER) (test 106 meq/L 98-107 xxtj=681) CO2 (BEAKER) (test 27 meq/L 22-29 nrpf=849) BLOOD UREA NITROGEN 34 mg/dL 7-21 (BEAKER) (test jtlk=672) CREATININE (BEAKER) (test 1.67 mg/dL 0.57-1.25 hykf=986) GLUCOSE RANDOM (BEAKER) 130 mg/dL 70-105 (test xeay=713) CALCIUM (BEAKER) (test 9.1 mg/dL 8.4-10.2 hmhm=804) EGFR (BEAKER) (test 37 mL/min/1.73 sq m ESTIMATED GFR IS NOT zmzq=9273) ACCURATE CREATININE CLEARANCE IN PREDICTING GLOMERULAR FILTRATION RATE. ESTIMATED GFR IS NOT APPLICABLE FOR DIALYSIS PATIENTS. CBC W/PLT COUNT & AUTO [id number] 05:56:00 Test Item Value Reference Range Comments WHITE BLOOD CELL COUNT (BEAKER) (test cjlb=699) 6.9 K/ L 3.5-10.5 RED BLOOD CELL COUNT (BEAKER) (test rwci=997) 2.88 M/ L 3.93-5.22 HEMOGLOBIN (BEAKER) (test qrux=212) 8.9 GM/DL 11.2-15.7 HEMATOCRIT (BEAKER) (test ahgk=132) 29.5 % 34.1-44.9 MEAN CORPUSCULAR VOLUME (BEAKER) (test dzwz=082) 102.4 fL 79.4-94.8 MEAN CORPUSCULAR HEMOGLOBIN (BEAKER) (test 30.9 pg 25.6-32.2 anqg=985) MEAN CORPUSCULAR HEMOGLOBIN CONC (BEAKER) (test 30.2 GM/DL 32.2-35.5 nvox=822) RED CELL DISTRIBUTION WIDTH (BEAKER) (test 17.8 % 11.7-14.4 fidf=578) PLATELET COUNT (BEAKER) (test gamq=755) 211 K/CU MM 150-450 MEAN PLATELET VOLUME (BEAKER) (test axau=718) 9.6 fL 9.4-12.3 NUCLEATED RED BLOOD CELLS (BEAKER) (test 0 /100 WBC 0-0 wvwh=820) NEUTROPHILS RELATIVE PERCENT (BEAKER) (test 86 % rgpr=888) LYMPHOCYTES RELATIVE PERCENT (BEAKER) (test 5 % azgl=283) MONOCYTES RELATIVE PERCENT (BEAKER) (test 8 % ydxx=428) EOSINOPHILS RELATIVE PERCENT (BEAKER) (test 0 % mhbj=862) BASOPHILS RELATIVE PERCENT (BEAKER) (test 0 % pmth=009) NEUTROPHILS ABSOLUTE COUNT (BEAKER) (test 5.94 K/ L 1.56-6.13 ypul=851) LYMPHOCYTES ABSOLUTE COUNT (BEAKER) (test 0.37 K/ L 1.18-3.74 mofr=675) MONOCYTES ABSOLUTE COUNT (BEAKER) (test 0.53 K/ L 0.24-0.36 ifzn=309) EOSINOPHILS ABSOLUTE COUNT (BEAKER) (test 0.02 K/ L 0.04-0.36 hcui=918) BASOPHILS ABSOLUTE COUNT (BEAKER) (test 0.01 K/ L 0.01-0.08 ychi=167) IMMATURE GRANULOCYTES-RELATIVE PERCENT (BEAKER) 0 % 0-1 (test dvny=4564) [id number] 15:31:00 Test Item Value Reference Range Comments MAGNESIUM (BEAKER) (test lkjd=740) 2.2 mg/dL 1.6-2.6 BASIC METABOLIC [id number] 15:31:00 Test Item Value Reference Range Comments SODIUM (BEAKER) (test 137 meq/L 136-145 kesn=200) POTASSIUM (BEAKER) (test 4.5 meq/L 3.5-5.1 yopo=837) CHLORIDE (BEAKER) (test 102 meq/L 98-107 epep=818) CO2 (BEAKER) (test 24 meq/L 22-29 vubx=782) BLOOD UREA NITROGEN 36 mg/dL 7-21 (BEAKER) (test ehdt=936) CREATININE (BEAKER) (test 1.78 mg/dL 0.57-1.25 btjt=374) GLUCOSE RANDOM (BEAKER) 179 mg/dL 70-105 (test uiny=227) CALCIUM (BEAKER) (test 8.8 mg/dL 8.4-10.2 efjv=995) EGFR (BEAKER) (test 34 mL/min/1.73 sq m ESTIMATED GFR IS NOT veql=1186) ACCURATE CREATININE CLEARANCE IN PREDICTING GLOMERULAR FILTRATION RATE. ESTIMATED GFR IS NOT APPLICABLE FOR DIALYSIS PATIENTS. CBC W/PLT COUNT & AUTO [id number] 15:17:00 Test Item Value Reference Range Comments WHITE BLOOD CELL COUNT (BEAKER) (test wuje=152) 7.3 K/ L 3.5-10.5 RED BLOOD CELL COUNT (BEAKER) (test fgfu=188) 3.02 M/ L 3.93-5.22 HEMOGLOBIN (BEAKER) (test sgsu=391) 9.5 GM/DL 11.2-15.7 HEMATOCRIT (BEAKER) (test jhag=666) 31.3 % 34.1-44.9 MEAN CORPUSCULAR VOLUME (BEAKER) (test ynal=571) 103.6 fL 79.4-94.8 MEAN CORPUSCULAR HEMOGLOBIN (BEAKER) (test 31.5 pg 25.6-32.2 bmtu=327) MEAN CORPUSCULAR HEMOGLOBIN CONC (BEAKER) (test 30.4 GM/DL 32.2-35.5 qoqp=605) RED CELL DISTRIBUTION WIDTH (BEAKER) (test 17.8 % 11.7-14.4 qfti=373) PLATELET COUNT (BEAKER) (test vdsc=686) 229 K/CU MM 150-450 MEAN PLATELET VOLUME (BEAKER) (test bexx=102) 9.7 fL 9.4-12.3 NUCLEATED RED BLOOD CELLS (BEAKER) (test 0 /100 WBC 0-0 dqiw=038) NEUTROPHILS RELATIVE PERCENT (BEAKER) (test 91 % bvai=910) LYMPHOCYTES RELATIVE PERCENT (BEAKER) (test 3 % zihy=773) MONOCYTES RELATIVE PERCENT (BEAKER) (test 5 % ybtc=295) EOSINOPHILS RELATIVE PERCENT (BEAKER) (test 0 % bljv=867) BASOPHILS RELATIVE PERCENT (BEAKER) (test 0 % teuu=004) NEUTROPHILS ABSOLUTE COUNT (BEAKER) (test 6.62 K/ L 1.56-6.13 qkzo=689) LYMPHOCYTES ABSOLUTE COUNT (BEAKER) (test 0.23 K/ L 1.18-3.74 vraw=327) MONOCYTES ABSOLUTE COUNT (BEAKER) (test 0.39 K/ L 0.24-0.36 nmdp=538) EOSINOPHILS ABSOLUTE COUNT (BEAKER) (test 0.00 K/ L 0.04-0.36 tgqw=599) BASOPHILS ABSOLUTE COUNT (BEAKER) (test 0.02 K/ L 0.01-0.08 gdat=430) IMMATURE GRANULOCYTES-RELATIVE PERCENT (BEAKER) 0 % 0-1 (test veze=5722) RAD, CHEST, 1 VIEW, NON [id number] 08:50:00Reason for exam:->ETTShould this be performed at [...] MDReport Verified Date/Time: 06/30/2018 08:50:44 Reading Location: [facility] [id number] Ultrasound Reading Room [id number] 06:52:00 Test Item Value Reference Range Comments ACTIVATED CLOTTING TIME [address] [facility] [address] [address] (BEAKER) (test unqd=290) [place] [address] [id number] 06:52:00 Test Item Value Reference Range Comments ACTIVATED CLOTTING TIME [address] [facility] [address] (BEAKER) (test hjtr=395) [place] [address] [id number] 06:52:00 Test Item Value Reference Range Comments ACTIVATED CLOTTING TIME 257 sec TESTED AT [place] [address] [address] (BEAKER) (test amqz=919) [place] [address] [id number] 06:52:00 Test Item Value Reference Range Comments ACTIVATED CLOTTING TIME 246 sec TESTED AT [place] [address] [address] (BEAKER) (test nxds=529) [place] [address] LACTIC ACID, [id number] 05:16:00 Test Item Value Reference Range Comments LACTATE BLOOD ARTERIAL (2) (BEAKER) (test 1.0 mmol/L 0.5-2.2 neru=1827) BLOOD GAS, [id number] 05:06:00 Test Item Value Reference Range Comments PH ARTERIAL (BEAKER) (test kxdp=159) 7.38 7.35-7.45 PCO2 ARTERIAL (BEAKER) (test kcxv=443) 40 mmHg 35-45 PO2 ARTERIAL (BEAKER) (test kxye=003) 107 mmHg 80-90 O2 SATURATION ARTERIAL (BEAKER) (test knpj=464) 97.9 % 96.0-97.0 HCO3 ARTERIAL (BEAKER) (test plur=655) 23 mmol/L 21-29 BASE EXCESS ARTERIAL (BEAKER) (test rvju=963) -2.1 mmol/L -2.0-3.0 PATIENT TEMPERATURE (BEAKER) (test rioe=1607) 36.7 C FIO2 (BEAKER) (test wnzo=1664) 60.0 % CBC W/PLT COUNT & AUTO [id number] 04:59:00 Test Item Value Reference Range Comments WHITE BLOOD CELL COUNT (BEAKER) (test uvmk=495) 8.9 K/ L 3.5-10.5 RED BLOOD CELL COUNT (BEAKER) (test qjjb=712) 3.28 M/ L 3.93-5.22 HEMOGLOBIN (BEAKER) (test uwdv=013) 10.0 GM/DL 11.2-15.7 HEMATOCRIT (BEAKER) (test dabh=234) 34.4 % 34.1-44.9 MEAN CORPUSCULAR VOLUME (BEAKER) (test vdkk=352) 104.9 fL 79.4-94.8 MEAN CORPUSCULAR HEMOGLOBIN (BEAKER) (test 30.5 pg 25.6-32.2 yuhp=599) MEAN CORPUSCULAR HEMOGLOBIN CONC (BEAKER) (test 29.1 GM/DL 32.2-35.5 rsry=865) RED CELL DISTRIBUTION WIDTH (BEAKER) (test 17.6 % 11.7-14.4 rbrl=383) PLATELET COUNT (BEAKER) (test sppr=102) 276 K/CU MM 150-450 MEAN PLATELET VOLUME (BEAKER) (test dkki=645) 9.7 fL 9.4-12.3 NUCLEATED RED BLOOD CELLS (BEAKER) (test 0 /100 WBC 0-0 djnz=066) NEUTROPHILS RELATIVE PERCENT (BEAKER) (test 90 % jici=941) LYMPHOCYTES RELATIVE PERCENT (BEAKER) (test 3 % jlbm=955) MONOCYTES RELATIVE PERCENT (BEAKER) (test 6 % teoi=274) EOSINOPHILS RELATIVE PERCENT (BEAKER) (test 0 % bapr=916) BASOPHILS RELATIVE PERCENT (BEAKER) (test 0 % tujd=423) NEUTROPHILS ABSOLUTE COUNT (BEAKER) (test 8.00 K/ L 1.56-6.13 jftm=091) LYMPHOCYTES ABSOLUTE COUNT (BEAKER) (test 0.30 K/ L 1.18-3.74 ravf=461) MONOCYTES ABSOLUTE COUNT (BEAKER) (test 0.51 K/ L 0.24-0.36 bfzv=644) EOSINOPHILS ABSOLUTE COUNT (BEAKER) (test 0.01 K/ L 0.04-0.36 onsa=646) BASOPHILS ABSOLUTE COUNT (BEAKER) (test 0.02 K/ L 0.01-0.08 irpq=891) IMMATURE GRANULOCYTES-RELATIVE PERCENT (BEAKER) 1 % 0-1 (test cykz=1036) B-TYPE NATRIURETIC FACTOR (BNP)2018-06-30 04:19:00 Test Item Value Reference Range Comments B-TYPE NATRIURETIC PEPTIDE (BEAKER) (test 24742 pg/mL 0-100 xqzq=328) HEPATIC FUNCTION [id number] 04:01:00 Test Item Value Reference Range Comments TOTAL PROTEIN (BEAKER) (test alob=686) 6.5 gm/dL 6.0-8.3 ALBUMIN (BEAKER) (test pzqm=7669) 3.4 g/dL 3.5-5.0 BILIRUBIN TOTAL (BEAKER) (test wkjo=108) 1.2 mg/dL 0.2-1.2 BILIRUBIN DIRECT (BEAKER) (test rrja=592) 0.8 mg/dL 0.1-0.5 ALKALINE PHOSPHATASE (BEAKER) (test kyuv=163) 103 U/L 40-150 AST (SGOT) (BEAKER) (test ouwi=979) 17 U/L 5-34 ALT (SGPT) (BEAKER) (test ersp=542) 15 U/L 6-55 RAD, CHEST, 1 VIEW, NON [id number] 02:31:00Reason for exam:->ETTShould this be performed at [...] MDReport Verified Date/Time: 06/30/2018 02:31:37 Reading Location: [address] Transitional Reading Room [id number] 02:27:00 Test Item Value Reference Range Comments PARTIAL THROMBOPLASTIN TIME (BEAKER) (test 39.5 seconds 22.5-36.0 iwfy=944) PROTHROMBIN [id number] 02:26:00 Test Item Value Reference Range Comments PROTIME (BEAKER) (test hpin=471) 16.5 seconds 11.7-14.7 INR (BEAKER) (test xsvt=412) 1.3 <=5.9 RECOMMENDED COUMADIN/WARFARIN INR THERAPY RANGESSTANDARD DOSE: 2.0 - 3.0 Includes: PROPHYLAXIS forvenous thrombosis, systemic embolization; TREATMENT for venous thrombosis and/or pulmonary embolus.HIGH RISK: Target INR is 2.5-3.5 for patients with mechanical heart valves.BASIC METABOLIC [id number] 02:09: 00 Test Item Value Reference Range Comments SODIUM (BEAKER) (test 137 meq/L 136-145 lown=303) POTASSIUM (BEAKER) (test 4.9 meq/L 3.5-5.1 slnq=503) CHLORIDE (BEAKER) (test 103 meq/L 98-107 besd=524) CO2 (BEAKER) (test 23 meq/L 22-29 mvhd=244) BLOOD UREA NITROGEN 32 mg/dL 7-21 (BEAKER) (test zubr=681) CREATININE (BEAKER) (test 1.74 mg/dL 0.57-1.25 rjne=481) GLUCOSE RANDOM (BEAKER) 143 mg/dL 70-105 (test eztz=036) CALCIUM (BEAKER) (test 8.8 mg/dL 8.4-10.2 uweq=217) EGFR (BEAKER) (test 35 mL/min/1.73 sq m ESTIMATED GFR IS NOT czhx=4003) ACCURATE CREATININE CLEARANCE IN PREDICTING GLOMERULAR FILTRATION RATE. ESTIMATED GFR IS NOT APPLICABLE FOR DIALYSIS PATIENTS. LACTIC ACID, [id number] 02:06:00 Test Item Value Reference Range Comments LACTATE BLOOD ARTERIAL (2) (BEAKER) (test 0.8 mmol/L 0.5-2.2 tifl=6089) OXYGEN SATURATION, [id number] 01:59:00 Test Item Value Reference Range Comments O2 SATURATION (MEASURED) (BEAKER) (test rveb=6853) 79.3 % BLOOD GAS, [id number] 01:58:00 Test Item Value Reference Range Comments PH ARTERIAL (BEAKER) (test oykf=510) 7.34 7.35-7.45 PCO2 ARTERIAL (BEAKER) (test usat=430) 50 mmHg 35-45 PO2 ARTERIAL (BEAKER) (test vnjw=738) 78 mmHg 80-90 O2 SATURATION ARTERIAL (BEAKER) (test utrc=361) 95.4 % 96.0-97.0 HCO3 ARTERIAL (BEAKER) (test bkbd=542) 27 mmol/L 21-29 BASE EXCESS ARTERIAL (BEAKER) (test knlv=807) 0.3 mmol/L -2.0-3.0 PATIENT TEMPERATURE (BEAKER) (test rebf=6983) 35.8 C FIO2 (BEAKER) (test oiul=1023) 60.0 % CBC W/PLT COUNT & AUTO [id number] 01:57:00 Test Item Value Reference Range Comments WHITE BLOOD CELL COUNT (BEAKER) (test roee=118) 9.7 K/ L 3.5-10.5 RED BLOOD CELL COUNT (BEAKER) (test ksjb=631) 3.18 M/ L 3.93-5.22 HEMOGLOBIN (BEAKER) (test xtfy=798) 9.8 GM/DL 11.2-15.7 HEMATOCRIT (BEAKER) (test vmuv=545) 33.3 % 34.1-44.9 MEAN CORPUSCULAR VOLUME (BEAKER) (test tnek=713) 104.7 fL 79.4-94.8 MEAN CORPUSCULAR HEMOGLOBIN (BEAKER) (test 30.8 pg 25.6-32.2 iwya=657) MEAN CORPUSCULAR HEMOGLOBIN CONC (BEAKER) (test 29.4 GM/DL 32.2-35.5 zdky=602) RED CELL DISTRIBUTION WIDTH (BEAKER) (test 17.5 % 11.7-14.4 fcbf=296) PLATELET COUNT (BEAKER) (test gwmf=261) 289 K/CU MM 150-450 MEAN PLATELET VOLUME (BEAKER) (test nbmy=234) 9.7 fL 9.4-12.3 NUCLEATED RED BLOOD CELLS (BEAKER) (test 0 /100 WBC 0-0 hrxp=509) NEUTROPHILS RELATIVE PERCENT (BEAKER) (test 88 % wcyi=166) LYMPHOCYTES RELATIVE PERCENT (BEAKER) (test 5 % dfdn=420) MONOCYTES RELATIVE PERCENT (BEAKER) (test 4 % grhv=532) EOSINOPHILS RELATIVE PERCENT (BEAKER) (test 1 % ovnb=424) BASOPHILS RELATIVE PERCENT (BEAKER) (test 0 % sytr=750) NEUTROPHILS ABSOLUTE COUNT (BEAKER) (test 8.53 K/ L 1.56-6.13 nojz=309) LYMPHOCYTES ABSOLUTE COUNT (BEAKER) (test 0.48 K/ L 1.18-3.74 rvli=517) MONOCYTES ABSOLUTE COUNT (BEAKER) (test 0.41 K/ L 0.24-0.36 spva=824) EOSINOPHILS ABSOLUTE COUNT (BEAKER) (test 0.13 K/ L 0.04-0.36 lfwb=974) BASOPHILS ABSOLUTE COUNT (BEAKER) (test 0.04 K/ L 0.01-0.08 lacs=829) IMMATURE GRANULOCYTES-RELATIVE PERCENT (BEAKER) 1 % 0-1 (test pcpp=6504) FILTER IONIZED [id number] 23:29:00 Test Item Value Reference Range Comments FILTER IONIZED CALCIUM (BEAKER) (test bubd=6490) 1.14 mmol/L Reference Range: No NormalsBLOOD GAS, [id number] 23:29:00 Test Item Value Reference Range Comments PH ARTERIAL (BEAKER) (test wbgg=154) 7.38 7.35-7.45 PCO2 ARTERIAL (BEAKER) (test eiet=807) 49 mmHg 35-45 PO2 ARTERIAL (BEAKER) (test rqti=429) 202 mmHg 80-90 O2 SATURATION ARTERIAL (BEAKER) (test jwyb=708) 99.4 % 96.0-97.0 HCO3 ARTERIAL (BEAKER) (test uokx=769) 29 mmol/L 21-29 BASE EXCESS ARTERIAL (BEAKER) (test mxea=257) 2.6 mmol/L -2.0-3.0 PATIENT TEMPERATURE (BEAKER) (test vnva=9640) 35.6 C FIO2 (BEAKER) (test cuas=5920) 100.0 % HGB/HCT (H&H) - STAT [id number] 23:28:00 Test Item Value Reference Range Comments HEMOGLOBIN (BEAKER) (test cedj=357) 10.7 g/dL 12.0-15.0 HEMATOCRIT (BEAKER) (test ocoo=515) 31.0 % 36.0-45.0 GLUCOSE-STAT [id number] 23:25:00 Test Item Value Reference Range Comments GLUCOSE RANDOM (BEAKER) (test bwdn=175) 97 mg/dL 70-110 SODIUM NA-STAT [id number] 23:25:00 Test Item Value Reference Range Comments SODIUM (BEAKER) (test ffoq=380) 137 meq/L 135-148 POTASSIUM-STAT [id number] 23:25:00 Test Item Value Reference Range Comments POTASSIUM (BEAKER) (test bkrg=487) 4.4 meq/L 3.6-5.5 B-TYPE NATRIURETIC FACTOR (BNP)2018-06-29 21:59:00 Test Item Value Reference Range Comments B-TYPE NATRIURETIC PEPTIDE (BEAKER) (test 42710 pg/mL 0-100 rlhs=598) BASIC METABOLIC [id number] 21:31:00 Test Item Value Reference Range Comments SODIUM (BEAKER) (test 140 meq/L 136-145 trgz=302) POTASSIUM (BEAKER) (test 4.6 meq/L 3.5-5.1 gnmb=007) CHLORIDE (BEAKER) (test 104 meq/L 98-107 cmxw=207) CO2 (BEAKER) (test 25 meq/L 22-29 ysaa=560) BLOOD UREA NITROGEN 33 mg/dL 7-21 (BEAKER) (test xgdr=566) CREATININE (BEAKER) (test 1.78 mg/dL 0.57-1.25 cuvl=120) GLUCOSE RANDOM (BEAKER) 79 mg/dL 70-105 (test eupg=340) CALCIUM (BEAKER) (test 9.4 mg/dL 8.4-10.2 zcil=586) EGFR (BEAKER) (test 34 mL/min/1.73 sq m ESTIMATED GFR IS NOT viie=7947) ACCURATE CREATININE CLEARANCE IN PREDICTING GLOMERULAR FILTRATION RATE. ESTIMATED GFR IS NOT APPLICABLE FOR DIALYSIS PATIENTS. [id number] 21:18:00 Test Item Value Reference Range Comments PARTIAL THROMBOPLASTIN TIME (BEAKER) (test 36.1 seconds 22.5-36.0 lskg=637) PROTHROMBIN [id number] 21:17:00 Test Item Value Reference Range Comments PROTIME (BEAKER) (test jwdc=399) 15.1 seconds 11.7-14.7 INR (BEAKER) (test eosf=835) 1.2 <=5.9 RECOMMENDED COUMADIN/WARFARIN INR THERAPY RANGESSTANDARD DOSE: 2.0 - 3.0 Includes: PROPHYLAXIS forvenous thrombosis, systemic embolization; TREATMENT for venous thrombosis and/or pulmonary embolus.HIGH RISK: Target INR is 2.5-3.5 for patients with mechanical heart valves.CBC W/PLT COUNT & AUTO [id number] 21:05:00 Test Item Value Reference Range Comments WHITE BLOOD CELL COUNT (BEAKER) (test fzcj=920) 5.3 K/ L 3.5-10.5 RED BLOOD CELL COUNT (BEAKER) (test covh=927) 3.43 M/ L 3.93-5.22 HEMOGLOBIN (BEAKER) (test dnyp=651) 10.6 GM/DL 11.2-15.7 HEMATOCRIT (BEAKER) (test lefo=619) 36.3 % 34.1-44.9 MEAN CORPUSCULAR VOLUME (BEAKER) (test eoda=726) 105.8 fL 79.4-94.8 MEAN CORPUSCULAR HEMOGLOBIN (BEAKER) (test 30.9 pg 25.6-32.2 bizm=531) MEAN CORPUSCULAR HEMOGLOBIN CONC (BEAKER) (test 29.2 GM/DL 32.2-35.5 qcpk=168) RED CELL DISTRIBUTION WIDTH (BEAKER) (test 17.9 % 11.7-14.4 prin=865) PLATELET COUNT (BEAKER) (test nfet=399) 294 K/CU MM 150-450 MEAN PLATELET VOLUME (BEAKER) (test lqdy=698) 9.4 fL 9.4-12.3 NUCLEATED RED BLOOD CELLS (BEAKER) (test 0 /100 WBC 0-0 doki=628) NEUTROPHILS RELATIVE PERCENT (BEAKER) (test 75 % qoxw=697) LYMPHOCYTES RELATIVE PERCENT (BEAKER) (test 12 % nmbz=714) MONOCYTES RELATIVE PERCENT (BEAKER) (test 8 % yldk=676) EOSINOPHILS RELATIVE PERCENT (BEAKER) (test 4 % qioo=935) BASOPHILS RELATIVE PERCENT (BEAKER) (test 1 % wpcs=231) NEUTROPHILS ABSOLUTE COUNT (BEAKER) (test 3.97 K/ L 1.56-6.13 zzdb=188) LYMPHOCYTES ABSOLUTE COUNT (BEAKER) (test 0.64 K/ L 1.18-3.74 lugk=558) MONOCYTES ABSOLUTE COUNT (BEAKER) (test 0.42 K/ L 0.24-0.36 yhii=310) EOSINOPHILS ABSOLUTE COUNT (BEAKER) (test 0.19 K/ L 0.04-0.36 rkfs=030) BASOPHILS ABSOLUTE COUNT (BEAKER) (test 0.05 K/ L 0.01-0.08 qvdf=724) IMMATURE GRANULOCYTES-RELATIVE PERCENT (BEAKER) 0 % 0-1 (test orga=7364) B-TYPE NATRIURETIC FACTOR (BNP)2017-08-18 15:08:00 Test Item Value Reference Range Comments B-TYPE NATRIURETIC PEPTIDE (BEAKER) (test 867 pg/mL 0-100 bxrb=810) BASIC METABOLIC [id number] 15:05:00 Test Item Value Reference Range Comments SODIUM (BEAKER) (test 140 meq/L 136-145 xeme=081) POTASSIUM (BEAKER) (test 4.6 meq/L 3.5-5.1 lteu=991) CHLORIDE (BEAKER) (test 98 meq/L 98-107 ydck=874) CO2 (BEAKER) (test 32 meq/L 22-29 semg=672) BLOOD UREA NITROGEN 30 mg/dL 7-21 (BEAKER) (test eqzi=673) CREATININE (BEAKER) (test 2.58 mg/dL 0.57-1.25 fxly=049) GLUCOSE RANDOM (BEAKER) 105 mg/dL 70-105 (test phwf=250) CALCIUM (BEAKER) (test 10.3 mg/dL 8.4-10.2 nsaa=955) EGFR (BEAKER) (test 22 mL/min/1.73 sq m ESTIMATED GFR IS NOT dbgx=0816) ACCURATE CREATININE CLEARANCE IN PREDICTING GLOMERULAR FILTRATION RATE. ESTIMATED GFR IS NOT APPLICABLE FOR DIALYSIS PATIENTS. [id number] 15:02:00 Test Item Value Reference Range Comments MAGNESIUM (BEAKER) (test jrvz=188) 2.0 mg/dL 1.6-2.6 POCT-GLUCOSE [id number] 12:40:00 Test Item Value Reference Range Comments POC-GLUCOSE METER (BEAKER) 225 mg/dL 70-110 TESTED AT [address] (test vakf=3582) [place] [address] POCT-GLUCOSE [id number] 08:32:00 Test Item Value Reference Range Comments POC-GLUCOSE METER (BEAKER) 148 mg/dL 70-110 TESTED AT [address] (test jghi=6951) [place] [id number] BASIC METABOLIC [id number] 05:56:00 Test Item Value Reference Range Comments SODIUM (BEAKER) (test 138 meq/L 136-145 axqz=690) POTASSIUM (BEAKER) (test 4.0 meq/L 3.5-5.1 ojvu=824) CHLORIDE (BEAKER) (test 98 meq/L 98-107 gqih=959) CO2 (BEAKER) (test 29 meq/L 22-29 qzta=731) BLOOD UREA NITROGEN 14 mg/dL 7-21 (BEAKER) (test rpag=869) CREATININE (BEAKER) (test 1.85 mg/dL 0.57-1.25 xxez=294) GLUCOSE RANDOM (BEAKER) 116 mg/dL 70-105 (test atji=654) CALCIUM (BEAKER) (test 9.9 mg/dL 8.4-10.2 toas=355) EGFR (BEAKER) (test 33 mL/min/1.73 sq m ESTIMATED GFR IS NOT ccpn=7529) ACCURATE CREATININE CLEARANCE IN PREDICTING GLOMERULAR FILTRATION RATE. ESTIMATED GFR IS NOT APPLICABLE FOR DIALYSIS PATIENTS. POCT-GLUCOSE [id number] 21:38:00 Test Item Value Reference Range Comments POC-GLUCOSE METER (BEAKER) 162 mg/dL 70-110 TESTED AT [address] (test yrvf=8555) [place] [address] POCT-GLUCOSE [id number] 17:02:00 Test Item Value Reference Range Comments POC-GLUCOSE METER (BEAKER) 160 mg/dL 70-110 TESTED AT [address] (test nfho=1258) [place] [address] POCT-GLUCOSE [id number] 12:33:00 Test Item Value Reference Range Comments POC-GLUCOSE METER (BEAKER) 163 mg/dL 70-110 TESTED AT [address] (test udqz=5923) [place] [address] POCT-GLUCOSE [id number] 10:33:00 Test Item Value Reference Range Comments POC-GLUCOSE METER (BEAKER) 175 mg/dL 70-110 TESTED AT [address] (test uyaf=9514) [place] [address] [id number] 04:51:00 Test Item Value Reference Range Comments MAGNESIUM (BEAKER) (test 2.0 mg/dL 1.6-2.6 Specimen slightly hemolyzed ciom=524) BASIC METABOLIC [id number] 04:51:00 Test Item Value Reference Range Comments SODIUM (BEAKER) (test 139 meq/L 136-145 totk=107) POTASSIUM (BEAKER) (test 3.8 meq/L 3.5-5.1 Specimen slightly ljux=527) hemolyzed CHLORIDE (BEAKER) (test 99 meq/L 98-107 nfbx=732) CO2 (BEAKER) (test 27 meq/L 22-29 blhz=049) BLOOD UREA NITROGEN 14 mg/dL 7-21 (BEAKER) (test mobd=213) CREATININE (BEAKER) (test 1.61 mg/dL 0.57-1.25 Specimen slightly esux=795) hemolyzed GLUCOSE RANDOM (BEAKER) 139 mg/dL 70-105 (test yjnm=736) CALCIUM (BEAKER) (test 10.0 mg/dL 8.4-10.2 etnq=211) EGFR (BEAKER) (test 38 mL/min/1.73 sq m ESTIMATED GFR IS NOT zbti=7656) ACCURATE CREATININE CLEARANCE IN PREDICTING GLOMERULAR FILTRATION RATE. ESTIMATED GFR IS NOT APPLICABLE FOR DIALYSIS PATIENTS. POCT-GLUCOSE [id number] 21:32:00 Test Item Value Reference Range Comments POC-GLUCOSE METER (BEAKER) 176 mg/dL 70-110 TESTED AT [address] (test shnu=4221) [place] [id number] POCT-GLUCOSE [id number] 17:22:00 Test Item Value Reference Range Comments POC-GLUCOSE METER (BEAKER) 232 mg/dL 70-110 TESTED AT [address] (test wawb=7137) [place] [id number] POCT-GLUCOSE [id number] 12:47:00 Test Item Value Reference Range Comments POC-GLUCOSE METER (BEAKER) 162 mg/dL 70-110 TESTED AT [address] (test jzgj=6281) [place] [id number] POCT-GLUCOSE [id number] 08:15:00 Test Item Value Reference Range Comments POC-GLUCOSE METER (BEAKER) 149 mg/dL 70-110 TESTED AT [address] (test cuhr=4710) [place] [id number] 07:05:00 Test Item Value Reference Range Comments MAGNESIUM (BEAKER) (test bkcs=585) 1.9 mg/dL 1.6-2.6 BASIC METABOLIC [id number] 07:05:00 Test Item Value Reference Range Comments SODIUM (BEAKER) (test 136 meq/L 136-145 role=380) POTASSIUM (BEAKER) (test 3.8 meq/L 3.5-5.1 suft=255) CHLORIDE (BEAKER) (test 98 meq/L 98-107 gcjf=142) CO2 (BEAKER) (test 30 meq/L 22-29 ulmd=960) BLOOD UREA NITROGEN 14 mg/dL 7-21 (BEAKER) (test licu=410) CREATININE (BEAKER) (test 1.56 mg/dL 0.57-1.25 uhmb=698) GLUCOSE RANDOM (BEAKER) 129 mg/dL 70-105 (test wsjx=426) CALCIUM (BEAKER) (test 9.8 mg/dL 8.4-10.2 fjcx=036) EGFR (BEAKER) (test 40 mL/min/1.73 sq m ESTIMATED GFR IS NOT lvcb=5259) ACCURATE CREATININE CLEARANCE IN PREDICTING GLOMERULAR FILTRATION RATE. ESTIMATED GFR IS NOT APPLICABLE FOR DIALYSIS PATIENTS. POCT-GLUCOSE [id number] 20:56:00 Test Item Value Reference Range Comments POC-GLUCOSE METER (BEAKER) 112 mg/dL 70-110 TESTED AT [address] (test xwdt=3221) [facility] [id number] POCT-GLUCOSE [id number] 17:48:00 Test Item Value Reference Range Comments POC-GLUCOSE METER (BEAKER) 213 mg/dL 70-110 TESTED AT [address] (test iigo=9225) [facility] [address] POCT-GLUCOSE [id number] 11:40:00 Test Item Value Reference Range Comments POC-GLUCOSE METER (BEAKER) 208 mg/dL 70-110 TESTED AT [address] (test cubm=8012) [place] [address] POCT-GLUCOSE [id number] 07:43:00 Test Item Value Reference Range Comments POC-GLUCOSE METER (BEAKER) 144 mg/dL 70-110 TESTED AT [address] (test tknb=4516) [place] [address] [id number] 04:52:00 Test Item Value Reference Range Comments MAGNESIUM (BEAKER) (test 2.0 mg/dL 1.6-2.6 Specimen slightly hemolyzed ovax=387) BASIC METABOLIC [id number] 04:52:00 Test Item Value Reference Range Comments SODIUM (BEAKER) (test 133 meq/L 136-145 yxry=734) POTASSIUM (BEAKER) (test 4.7 meq/L 3.5-5.1 Specimen slightly lxfo=991) hemolyzed CHLORIDE (BEAKER) (test 97 meq/L 98-107 cejx=118) CO2 (BEAKER) (test 25 meq/L 22-29 oaqp=674) BLOOD UREA NITROGEN 17 mg/dL 7-21 (BEAKER) (test orbl=853) CREATININE (BEAKER) (test 1.63 mg/dL 0.57-1.25 Specimen slightly afrr=854) hemolyzed GLUCOSE RANDOM (BEAKER) 141 mg/dL 70-105 (test cico=407) CALCIUM (BEAKER) (test 9.8 mg/dL 8.4-10.2 cuud=322) EGFR (BEAKER) (test 38 mL/min/1.73 sq m ESTIMATED GFR IS NOT fjfk=4633) ACCURATE CREATININE CLEARANCE IN PREDICTING GLOMERULAR FILTRATION RATE. ESTIMATED GFR IS NOT APPLICABLE FOR DIALYSIS PATIENTS. POCT-GLUCOSE [id number] 21:29:00 Test Item Value Reference Range Comments POC-GLUCOSE METER (BEAKER) 198 mg/dL 70-110 TESTED AT [address] (test uwvd=8557) [place] [address] POCT-GLUCOSE [id number] 17:54:00 Test Item Value Reference Range Comments POC-GLUCOSE METER (BEAKER) 176 mg/dL 70-110 TESTED AT [address] (test ajzk=2809) [place] [address] POCT-GLUCOSE [id number] 07:05:00 Test Item Value Reference Range Comments POC-GLUCOSE METER (BEAKER) 137 mg/dL 70-110 TESTED AT [address] (test eilt=6065) [place] [address] [id number] 06:53:00 Test Item Value Reference Range Comments MAGNESIUM (BEAKER) (test bqdg=018) 2.0 mg/dL 1.6-2.6 BASIC METABOLIC [id number] 05:37:00 Test Item Value Reference Range Comments SODIUM (BEAKER) (test 136 meq/L 136-145 bobx=675) POTASSIUM (BEAKER) (test 3.7 meq/L 3.5-5.1 lnci=056) CHLORIDE (BEAKER) (test 97 meq/L 98-107 bqze=548) CO2 (BEAKER) (test 30 meq/L 22-29 oxak=128) BLOOD UREA NITROGEN 17 mg/dL 7-21 (BEAKER) (test sila=142) CREATININE (BEAKER) (test 1.60 mg/dL 0.57-1.25 buql=152) GLUCOSE RANDOM (BEAKER) 116 mg/dL 70-105 (test ydnq=390) CALCIUM (BEAKER) (test 9.4 mg/dL 8.4-10.2 xvrw=322) EGFR (BEAKER) (test 39 mL/min/1.73 sq m ESTIMATED GFR IS NOT muaq=0905) ACCURATE CREATININE CLEARANCE IN PREDICTING GLOMERULAR FILTRATION RATE. ESTIMATED GFR IS NOT APPLICABLE FOR DIALYSIS PATIENTS. CBC W/PLT COUNT & AUTO [id number] 05:02:00 Test Item Value Reference Range Comments WHITE BLOOD CELL COUNT (BEAKER) (test ahcd=838) 8.7 K/ L 3.5-10.5 RED BLOOD CELL COUNT (BEAKER) (test gwru=924) 2.43 M/ L 3.93-5.22 HEMOGLOBIN (BEAKER) (test nllp=792) 7.5 GM/DL 11.2-15.7 HEMATOCRIT (BEAKER) (test rsiu=085) 24.1 % 34.1-44.9 MEAN CORPUSCULAR VOLUME (BEAKER) (test imbe=583) 99.2 fL 79.4-94.8 MEAN CORPUSCULAR HEMOGLOBIN (BEAKER) (test 30.9 pg 25.6-32.2 adgn=417) MEAN CORPUSCULAR HEMOGLOBIN CONC (BEAKER) (test 31.1 GM/DL 32.2-35.5 gekr=470) RED CELL DISTRIBUTION WIDTH (BEAKER) (test 15.8 % 11.7-14.4 mezj=927) PLATELET COUNT (BEAKER) (test khfh=396) 586 K/CU MM 150-450 MEAN PLATELET VOLUME (BEAKER) (test jwbh=255) 9.5 fL 9.4-12.3 NUCLEATED RED BLOOD CELLS (BEAKER) (test 0 /100 WBC 0-0 zpts=579) NEUTROPHILS RELATIVE PERCENT (BEAKER) (test 74 % rxla=631) LYMPHOCYTES RELATIVE PERCENT (BEAKER) (test 15 % fgjw=548) MONOCYTES RELATIVE PERCENT (BEAKER) (test 8 % jpct=328) EOSINOPHILS RELATIVE PERCENT (BEAKER) (test 2 % pksh=524) BASOPHILS RELATIVE PERCENT (BEAKER) (test 1 % wyib=867) NEUTROPHILS ABSOLUTE COUNT (BEAKER) (test 6.41 K/ L 1.56-6.13 ipsk=747) LYMPHOCYTES ABSOLUTE COUNT (BEAKER) (test 1.32 K/ L 1.18-3.74 iqwd=813) MONOCYTES ABSOLUTE COUNT (BEAKER) (test 0.65 K/ L 0.24-0.36 izut=714) EOSINOPHILS ABSOLUTE COUNT (BEAKER) (test 0.20 K/ L 0.04-0.36 imsh=501) BASOPHILS ABSOLUTE COUNT (BEAKER) (test 0.08 K/ L 0.01-0.08 tcqw=227) IMMATURE GRANULOCYTES-RELATIVE PERCENT (BEAKER) 0 % 0-1 (test prmj=6823) POCT-GLUCOSE [id number] 21:28:00 Test Item Value Reference Range Comments POC-GLUCOSE METER (BEAKER) 216 mg/dL 70-110 TESTED AT [address] (test jdva=2510) [place] [address] POCT-GLUCOSE [id number] 18:25:00 Test Item Value Reference Range Comments POC-GLUCOSE METER (BEAKER) 182 mg/dL 70-110 TESTED AT [address] (test taox=5466) [place] [address] POCT-GLUCOSE [id number] 09:37:00 Test Item Value Reference Range Comments POC-GLUCOSE METER (BEAKER) 155 mg/dL 70-110 TESTED AT [address] (test njrk=5310) [place] [id number] CALCIUM, [id number] 07:37:00 Test Item Value Reference Range Comments CALCIUM IONIZED (BEAKER) (test vash=176) 1.11 mmol/L 1.12-1.27 PH, BLOOD (BEAKER) (test hoza=7191) 7.39 [id number] 07:10:00 Test Item Value Reference Range Comments FERRITIN (BEAKER) (test jvan=998) 445 ng/mL 5-275 IRON, TIBC, % SAT. (WITHOUT FERRITIN)2017-08-04 07:04:00 Test Item Value Reference Range Comments IRON (BEAKER) (test rxkd=392) 55 ug/dL 40-160 TOTAL IRON BINDING CAPACITY (BEAKER) (test 198 ug/dL 250-450 jawd=001) IRON % SATURATION (2) (BEAKER) (test xcto=4046) 28 % 20-55 [id number] 06:57:00 Test Item Value Reference Range Comments PHOSPHORUS (BEAKER) (test zrvx=359) 4.3 mg/dL 2.3-4.7 [id number] 06:57:00 Test Item Value Reference Range Comments MAGNESIUM (BEAKER) (test gjrr=053) 2.1 mg/dL 1.6-2.6 BASIC METABOLIC [id number] 06:57:00 Test Item Value Reference Range Comments SODIUM (BEAKER) (test 138 meq/L 136-145 udpq=456) POTASSIUM (BEAKER) (test 3.8 meq/L 3.5-5.1 mkwe=504) CHLORIDE (BEAKER) (test 99 meq/L 98-107 opvq=830) CO2 (BEAKER) (test 29 meq/L 22-29 xymi=670) BLOOD UREA NITROGEN 18 mg/dL 7-21 (BEAKER) (test najo=521) CREATININE (BEAKER) (test 1.75 mg/dL 0.57-1.25 ocgc=448) GLUCOSE RANDOM (BEAKER) 138 mg/dL 70-105 (test soha=418) CALCIUM (BEAKER) (test 9.7 mg/dL 8.4-10.2 nlto=723) EGFR (BEAKER) (test 35 mL/min/1.73 sq m ESTIMATED GFR IS NOT sino=3486) ACCURATE CREATININE CLEARANCE IN PREDICTING GLOMERULAR FILTRATION RATE. ESTIMATED GFR IS NOT APPLICABLE FOR DIALYSIS PATIENTS. B-TYPE NATRIURETIC FACTOR (BNP)2017-08-04 06:54:00 Test Item Value Reference Range Comments B-TYPE NATRIURETIC PEPTIDE (BEAKER) (test 778 pg/mL 0-100 kkxm=924) RETICULOCYTE [id number] 06:39:00 Test Item Value Reference Range Comments RETICULOCYTE COUNT PCT (BEAKER) (test zkdq=397) 8.3 % 0.5-1.7 CBC W/PLT COUNT & AUTO [id number] 06:39:00 Test Item Value Reference Range Comments WHITE BLOOD CELL COUNT (BEAKER) (test ciep=312) 9.0 K/ L 3.5-10.5 RED BLOOD CELL COUNT (BEAKER) (test sxrs=069) 2.55 M/ L 3.93-5.22 HEMOGLOBIN (BEAKER) (test ryti=438) 7.8 GM/DL 11.2-15.7 HEMATOCRIT (BEAKER) (test naaq=716) 25.4 % 34.1-44.9 MEAN CORPUSCULAR VOLUME (BEAKER) (test thma=355) 99.6 fL 79.4-94.8 MEAN CORPUSCULAR HEMOGLOBIN (BEAKER) (test 30.6 pg 25.6-32.2 rcue=703) MEAN CORPUSCULAR HEMOGLOBIN CONC (BEAKER) (test 30.7 GM/DL 32.2-35.5 ufap=504) RED CELL DISTRIBUTION WIDTH (BEAKER) (test 15.9 % 11.7-14.4 oqra=940) PLATELET COUNT (BEAKER) (test bhgv=737) 591 K/CU MM 150-450 MEAN PLATELET VOLUME (BEAKER) (test tisv=304) 9.5 fL 9.4-12.3 NUCLEATED RED BLOOD CELLS (BEAKER) (test 0 /100 WBC 0-0 hmbo=050) NEUTROPHILS RELATIVE PERCENT (BEAKER) (test 77 % piei=797) LYMPHOCYTES RELATIVE PERCENT (BEAKER) (test 13 % snnm=895) MONOCYTES RELATIVE PERCENT (BEAKER) (test 7 % xcpn=594) EOSINOPHILS RELATIVE PERCENT (BEAKER) (test 2 % cvoy=897) BASOPHILS RELATIVE PERCENT (BEAKER) (test 1 % gxfg=132) NEUTROPHILS ABSOLUTE COUNT (BEAKER) (test 6.97 K/ L 1.56-6.13 habj=025) LYMPHOCYTES ABSOLUTE COUNT (BEAKER) (test 1.13 K/ L 1.18-3.74 dapf=543) MONOCYTES ABSOLUTE COUNT (BEAKER) (test 0.65 K/ L 0.24-0.36 xqdk=152) EOSINOPHILS ABSOLUTE COUNT (BEAKER) (test 0.18 K/ L 0.04-0.36 ycev=216) BASOPHILS ABSOLUTE COUNT (BEAKER) (test 0.07 K/ L 0.01-0.08 kbyy=681) IMMATURE GRANULOCYTES-RELATIVE PERCENT (BEAKER) 0 % 0-1 (test ltew=4117) POCT-GLUCOSE [id number] 20:56:00 Test Item Value Reference Range Comments POC-GLUCOSE METER (BEAKER) 167 mg/dL 70-110 TESTED AT [address] (test esnp=7093) [facility] [address] POCT-GLUCOSE [id number] 16:36:00 Test Item Value Reference Range Comments POC-GLUCOSE METER (BEAKER) 200 mg/dL 70-110 TESTED AT [address] (test hjes=8027) [facility] [address] POCT-GLUCOSE [id number] 12:59:00 Test Item Value Reference Range Comments POC-GLUCOSE METER (BEAKER) 202 mg/dL 70-110 TESTED AT [address] (test cufh=8120) [place] [id number] POCT-GLUCOSE [id number] 07:37:00 Test Item Value Reference Range Comments POC-GLUCOSE METER (BEAKER) 154 mg/dL 70-110 TESTED AT [address] (test ajgo=0235) [facility] [address] CBC W/PLT COUNT & AUTO [id number] 06:49:00 Test Item Value Reference Range Comments WHITE BLOOD CELL COUNT (BEAKER) (test dheg=422) 9.8 K/ L 3.5-10.5 RED BLOOD CELL COUNT (BEAKER) (test ezkt=629) 2.62 M/ L 3.93-5.22 HEMOGLOBIN (BEAKER) (test bymx=402) 8.1 GM/DL 11.2-15.7 HEMATOCRIT (BEAKER) (test azye=140) 25.9 % 34.1-44.9 MEAN CORPUSCULAR VOLUME (BEAKER) (test miji=594) 98.9 fL 79.4-94.8 MEAN CORPUSCULAR HEMOGLOBIN (BEAKER) (test 30.9 pg 25.6-32.2 yqhv=082) MEAN CORPUSCULAR HEMOGLOBIN CONC (BEAKER) (test 31.3 GM/DL 32.2-35.5 hzye=519) RED CELL DISTRIBUTION WIDTH (BEAKER) (test 15.8 % 11.7-14.4 gtpr=326) PLATELET COUNT (BEAKER) (test jaad=582) 667 K/CU MM 150-450 MEAN PLATELET VOLUME (BEAKER) (test yoys=629) 9.4 fL 9.4-12.3 NUCLEATED RED BLOOD CELLS (BEAKER) (test 0 /100 WBC 0-0 ghjh=490) NEUTROPHILS RELATIVE PERCENT (BEAKER) (test 77 % xyuk=140) LYMPHOCYTES RELATIVE PERCENT (BEAKER) (test 13 % gzwb=138) MONOCYTES RELATIVE PERCENT (BEAKER) (test 7 % cvlx=253) EOSINOPHILS RELATIVE PERCENT (BEAKER) (test 2 % uxrt=838) BASOPHILS RELATIVE PERCENT (BEAKER) (test 1 % mqxj=085) NEUTROPHILS ABSOLUTE COUNT (BEAKER) (test 7.57 K/ L 1.56-6.13 iaae=367) LYMPHOCYTES ABSOLUTE COUNT (BEAKER) (test 1.23 K/ L 1.18-3.74 zxhc=934) MONOCYTES ABSOLUTE COUNT (BEAKER) (test 0.69 K/ L 0.24-0.36 ulcp=362) EOSINOPHILS ABSOLUTE COUNT (BEAKER) (test 0.16 K/ L 0.04-0.36 kdwt=788) BASOPHILS ABSOLUTE COUNT (BEAKER) (test 0.08 K/ L 0.01-0.08 cubv=711) IMMATURE GRANULOCYTES-RELATIVE PERCENT (BEAKER) 1 % 0-1 (test eyzy=1583) CALCIUM, [id number] 06:38:00 Test Item Value Reference Range Comments CALCIUM IONIZED (BEAKER) (test clhd=069) 1.07 mmol/L 1.12-1.27 PH, BLOOD (BEAKER) (test lyle=0103) 7.42 [id number] 06:08:00 Test Item Value Reference Range Comments PHOSPHORUS (BEAKER) (test ltmg=888) 4.3 mg/dL 2.3-4.7 [id number] 06:08:00 Test Item Value Reference Range Comments MAGNESIUM (BEAKER) (test assm=007) 2.4 mg/dL 1.6-2.6 BASIC METABOLIC [id number] 06:08:00 Test Item Value Reference Range Comments SODIUM (BEAKER) (test 138 meq/L 136-145 vtmv=363) POTASSIUM (BEAKER) (test 4.0 meq/L 3.5-5.1 ogre=816) CHLORIDE (BEAKER) (test 99 meq/L 98-107 eqwz=224) CO2 (BEAKER) (test 29 meq/L 22-29 ygtw=683) BLOOD UREA NITROGEN 15 mg/dL 7-21 (BEAKER) (test dpwd=198) CREATININE (BEAKER) (test 1.64 mg/dL 0.57-1.25 mato=630) GLUCOSE RANDOM (BEAKER) 135 mg/dL 70-105 (test mirl=382) CALCIUM (BEAKER) (test 9.5 mg/dL 8.4-10.2 gjjc=268) EGFR (BEAKER) (test 38 mL/min/1.73 sq m ESTIMATED GFR IS NOT cuuf=0965) ACCURATE CREATININE CLEARANCE IN PREDICTING GLOMERULAR FILTRATION RATE. ESTIMATED GFR IS NOT APPLICABLE FOR DIALYSIS PATIENTS. POCT-GLUCOSE [id number] 21:13:00 Test Item Value Reference Range Comments POC-GLUCOSE METER (BEAKER) 145 mg/dL 70-110 TESTED AT [address] (test wffa=1600) [place] [address] POCT-GLUCOSE [id number] 17:08:00 Test Item Value Reference Range Comments POC-GLUCOSE METER (BEAKER) 134 mg/dL 70-110 TESTED AT [address] (test ovev=1654) [place] [address] POCT-GLUCOSE [id number] 11:44:00 Test Item Value Reference Range Comments POC-GLUCOSE METER (BEAKER) 159 mg/dL 70-110 TESTED AT [address] (test zyfk=1783) [place] [id number] POCT-GLUCOSE [id number] 08:07:00 Test Item Value Reference Range Comments POC-GLUCOSE METER (BEAKER) 152 mg/dL 70-110 TESTED AT [address] (test bqtt=0898) [place] [id number] CALCIUM, [id number] 05:26:00 Test Item Value Reference Range Comments CALCIUM IONIZED (BEAKER) (test ytsh=231) 1.10 mmol/L 1.12-1.27 PH, BLOOD (BEAKER) (test fpah=8067) 7.42 [id number] 05:05:00 Test Item Value Reference Range Comments PHOSPHORUS (BEAKER) (test wpul=522) 4.6 mg/dL 2.3-4.7 [id number] 05:05:00 Test Item Value Reference Range Comments MAGNESIUM (BEAKER) (test prfb=115) 1.6 mg/dL 1.6-2.6 COMPREHENSIVE METABOLIC [id number] 05:05:00 Test Item Value Reference Range Comments TOTAL PROTEIN (BEAKER) 6.9 gm/dL 6.0-8.3 (test rqcp=573) ALBUMIN (BEAKER) (test 3.2 g/dL 3.5-5.0 sxvj=1953) ALKALINE PHOSPHATASE 55 U/L 40-150 (BEAKER) (test frii=955) BILIRUBIN TOTAL (BEAKER) 0.6 mg/dL 0.2-1.2 (test becf=697) SODIUM (BEAKER) (test 139 meq/L 136-145 wapo=707) POTASSIUM (BEAKER) (test 3.9 meq/L 3.5-5.1 qhcq=111) CHLORIDE (BEAKER) (test 100 meq/L 98-107 eukb=349) CO2 (BEAKER) (test 27 meq/L 22-29 rocu=492) BLOOD UREA NITROGEN 15 mg/dL 7-21 (BEAKER) (test wghj=323) CREATININE (BEAKER) (test 1.55 mg/dL 0.57-1.25 pqyv=683) GLUCOSE RANDOM (BEAKER) 125 mg/dL 70-105 (test cmhj=197) CALCIUM (BEAKER) (test 9.2 mg/dL 8.4-10.2 uiia=006) AST (SGOT) (BEAKER) (test 16 U/L 5-34 vaym=760) ALT (SGPT) (BEAKER) (test 11 U/L 6-55 hiur=995) EGFR (BEAKER) (test 40 mL/min/1.73 sq m ESTIMATED GFR IS NOT uuus=6413) ACCURATE CREATININE CLEARANCE IN PREDICTING GLOMERULAR FILTRATION RATE. ESTIMATED GFR IS NOT APPLICABLE FOR DIALYSIS PATIENTS. CBC W/PLT COUNT & AUTO [id number] 04:57:00 Test Item Value Reference Range Comments WHITE BLOOD CELL COUNT (BEAKER) (test btoi=822) 10.8 K/ L 3.5-10.5 RED BLOOD CELL COUNT (BEAKER) (test tlyg=343) 2.57 M/ L 3.93-5.22 HEMOGLOBIN (BEAKER) (test kbry=130) 7.9 GM/DL 11.2-15.7 HEMATOCRIT (BEAKER) (test etqh=601) 25.2 % 34.1-44.9 MEAN CORPUSCULAR VOLUME (BEAKER) (test ztfk=625) 98.1 fL 79.4-94.8 MEAN CORPUSCULAR HEMOGLOBIN (BEAKER) (test 30.7 pg 25.6-32.2 gkkg=697) MEAN CORPUSCULAR HEMOGLOBIN CONC (BEAKER) (test 31.3 GM/DL 32.2-35.5 uqyv=689) RED CELL DISTRIBUTION WIDTH (BEAKER) (test 15.9 % 11.7-14.4 kejr=606) PLATELET COUNT (BEAKER) (test fiil=249) 623 K/CU MM 150-450 MEAN PLATELET VOLUME (BEAKER) (test hvwk=990) 9.4 fL 9.4-12.3 NUCLEATED RED BLOOD CELLS (BEAKER) (test 0 /100 WBC 0-0 mzjw=351) NEUTROPHILS RELATIVE PERCENT (BEAKER) (test 79 % hbln=493) LYMPHOCYTES RELATIVE PERCENT (BEAKER) (test 12 % oqgo=817) MONOCYTES RELATIVE PERCENT (BEAKER) (test 7 % extk=688) EOSINOPHILS RELATIVE PERCENT (BEAKER) (test 2 % mwja=985) BASOPHILS RELATIVE PERCENT (BEAKER) (test 1 % rqjh=715) NEUTROPHILS ABSOLUTE COUNT (BEAKER) (test 8.49 K/ L 1.56-6.13 cfzs=058) LYMPHOCYTES ABSOLUTE COUNT (BEAKER) (test 1.28 K/ L 1.18-3.74 sbqh=464) MONOCYTES ABSOLUTE COUNT (BEAKER) (test 0.74 K/ L 0.24-0.36 npxo=161) EOSINOPHILS ABSOLUTE COUNT (BEAKER) (test 0.18 K/ L 0.04-0.36 fwbz=135) BASOPHILS ABSOLUTE COUNT (BEAKER) (test 0.05 K/ L 0.01-0.08 veus=891) IMMATURE GRANULOCYTES-RELATIVE PERCENT (BEAKER) 1 % 0-1 (test cfeu=0290) POCT-GLUCOSE [id number] 01:29:00 Test Item Value Reference Range Comments POC-GLUCOSE METER (BEAKER) 182 mg/dL 70-110 TESTED AT [address] (test nvqa=7711) [place] [id number] POCT-GLUCOSE [id number] 22:32:00 Test Item Value Reference Range Comments POC-GLUCOSE METER (BEAKER) 204 mg/dL 70-110 TESTED AT [address] (test sohp=6454) [place] [address] POCT-GLUCOSE [id number] 18:53:00 Test Item Value Reference Range Comments POC-GLUCOSE METER (BEAKER) 154 mg/dL 70-110 TESTED AT [address] (test jfwr=4972) [place] [address] POCT-GLUCOSE [id number] 15:50:00 Test Item Value Reference Range Comments POC-GLUCOSE METER (BEAKER) 172 mg/dL 70-110 TESTED AT [address] (test seaj=9189) [place] [address] B-TYPE NATRIURETIC FACTOR (BNP)2017-08-01 15:41:00 Test Item Value Reference Range Comments B-TYPE NATRIURETIC PEPTIDE (BEAKER) (test 1253 pg/mL 0-100 cbib=810) RAD, CHEST, 1 VIEW, NON [id number] 15:00:00Reason for exam:->SOBShould this be performed at the bedside?->YesFINAL REPORT Chest one view compared to July 28, 2017 Discussion: There is cardiac prominence. Lungs are grossly clear. No effusion or pneumothorax. There is either hiatal hernia or aortic tortuosity. IMPRESSIONS: No significant change. Signed: Tony Hsu Verified Date/Time: 08/01/2017 15:00:05 Reading Location: [address] Consult Reading Room Electronicallysigned by: TONY HSU M.D. on 08/01/2017 03:00 PMPOCT-GLUCOSE [id number] 09:28:00 Test Item Value Reference Range Comments POC-GLUCOSE METER (BEAKER) 155 mg/dL 70-110 TESTED AT [address] (test hjra=2830) [place] [address] BASIC METABOLIC [id number] 08:00:00 Test Item Value Reference Range Comments SODIUM (BEAKER) (test 138 meq/L 136-145 mzyb=774) POTASSIUM (BEAKER) (test 3.8 meq/L 3.5-5.1 gcos=123) CHLORIDE (BEAKER) (test 100 meq/L 98-107 gvqp=819) CO2 (BEAKER) (test 27 meq/L 22-29 flww=000) BLOOD UREA NITROGEN 14 mg/dL 7-21 (BEAKER) (test qfgl=731) CREATININE (BEAKER) (test 1.47 mg/dL 0.57-1.25 yzxi=997) GLUCOSE RANDOM (BEAKER) 150 mg/dL 70-105 (test seni=462) CALCIUM (BEAKER) (test 9.0 mg/dL 8.4-10.2 gssn=753) EGFR (BEAKER) (test 43 mL/min/1.73 sq m ESTIMATED GFR IS NOT czmx=3225) ACCURATE CREATININE CLEARANCE IN PREDICTING GLOMERULAR FILTRATION RATE. ESTIMATED GFR IS NOT APPLICABLE FOR DIALYSIS PATIENTS. CBC W/PLT COUNT & AUTO [id number] 07:54:00 Test Item Value Reference Range Comments WHITE BLOOD CELL COUNT (BEAKER) (test vmkm=596) 12.4 K/ L 3.5-10.5 RED BLOOD CELL COUNT (BEAKER) (test obxo=588) 2.57 M/ L 3.93-5.22 HEMOGLOBIN (BEAKER) (test uxxe=358) 7.7 GM/DL 11.2-15.7 HEMATOCRIT (BEAKER) (test pdnq=858) 25.0 % 34.1-44.9 MEAN CORPUSCULAR VOLUME (BEAKER) (test zkmh=607) 97.3 fL 79.4-94.8 MEAN CORPUSCULAR HEMOGLOBIN (BEAKER) (test 30.0 pg 25.6-32.2 pdad=388) MEAN CORPUSCULAR HEMOGLOBIN CONC (BEAKER) (test 30.8 GM/DL 32.2-35.5 axgd=367) RED CELL DISTRIBUTION WIDTH (BEAKER) (test 15.8 % 11.7-14.4 ayvy=014) PLATELET COUNT (BEAKER) (test dqek=962) 582 K/CU MM 150-450 MEAN PLATELET VOLUME (BEAKER) (test rndv=602) 9.5 fL 9.4-12.3 NUCLEATED RED BLOOD CELLS (BEAKER) (test 0 /100 WBC 0-0 nijq=346) NEUTROPHILS RELATIVE PERCENT (BEAKER) (test 82 % wgld=131) LYMPHOCYTES RELATIVE PERCENT (BEAKER) (test 10 % kfxr=322) MONOCYTES RELATIVE PERCENT (BEAKER) (test 6 % itqn=206) EOSINOPHILS RELATIVE PERCENT (BEAKER) (test 1 % ykgc=070) BASOPHILS RELATIVE PERCENT (BEAKER) (test 1 % sxqz=361) NEUTROPHILS ABSOLUTE COUNT (BEAKER) (test 10.08 K/ L 1.56-6.13 nrwj=912) LYMPHOCYTES ABSOLUTE COUNT (BEAKER) (test 1.19 K/ L 1.18-3.74 wcdf=520) MONOCYTES ABSOLUTE COUNT (BEAKER) (test 0.74 K/ L 0.24-0.36 xdvi=100) EOSINOPHILS ABSOLUTE COUNT (BEAKER) (test 0.16 K/ L 0.04-0.36 hgge=917) BASOPHILS ABSOLUTE COUNT (BEAKER) (test 0.10 K/ L 0.01-0.08 bdxy=560) IMMATURE GRANULOCYTES-RELATIVE PERCENT (BEAKER) 1 % 0-1 (test nxmy=5515) POCT-GLUCOSE [id number] 21:34:00 Test Item Value Reference Range Comments POC-GLUCOSE METER (BEAKER) 153 mg/dL 70-110 TESTED AT [address] (test uaxy=2350) [place] [id number] POCT-GLUCOSE [id number] 17:34:00 Test Item Value Reference Range Comments POC-GLUCOSE METER (BEAKER) 165 mg/dL 70-110 TESTED AT [address] (test takd=1969) [place] [id number] POCT-GLUCOSE [id number] 14:33:00 Test Item Value Reference Range Comments POC-GLUCOSE METER (BEAKER) 208 mg/dL 70-110 TESTED AT [address] (test oqpf=2719) [place] [id number] POCT-GLUCOSE [id number] 12:54:00 Test Item Value Reference Range Comments POC-GLUCOSE METER (BEAKER) 218 mg/dL 70-110 TESTED AT [address] (test wotu=0097) [place] [id number] POCT-GLUCOSE [id number] 10:34:00 Test Item Value Reference Range Comments POC-GLUCOSE METER (BEAKER) 204 mg/dL 70-[address] [facility] [address] [facility] (test dvin=9404) [facility] [address] POCT-GLUCOSE [id number] 08:41:00 Test Item Value Reference Range Comments POC-GLUCOSE METER (BEAKER) 201 mg/dL 70-[address] [facility] [address] [facility] (test kjwl=5153) [facility] [address] [id number] 05:54:00 Test Item Value Reference Range Comments MAGNESIUM (BEAKER) (test pvxj=716) 1.8 mg/dL 1.6-2.6 BASIC METABOLIC [id number] 05:54:00 Test Item Value Reference Range Comments SODIUM (BEAKER) (test 138 meq/L 136-145 atro=243) POTASSIUM (BEAKER) (test 3.6 meq/L 3.5-5.1 acvr=789) CHLORIDE (BEAKER) (test 100 meq/L 98-107 zxpz=845) CO2 (BEAKER) (test 25 meq/L 22-29 qpyq=226) BLOOD UREA NITROGEN 14 mg/dL 7-21 (BEAKER) (test eirk=658) CREATININE (BEAKER) (test 1.42 mg/dL 0.57-1.25 twdc=545) GLUCOSE RANDOM (BEAKER) 145 mg/dL 70-105 (test okfw=389) CALCIUM (BEAKER) (test 9.4 mg/dL 8.4-10.2 qqhb=987) EGFR (BEAKER) (test 44 mL/min/1.73 sq m ESTIMATED GFR IS NOT comk=8427) ACCURATE CREATININE CLEARANCE IN PREDICTING GLOMERULAR FILTRATION RATE. ESTIMATED GFR IS NOT APPLICABLE FOR DIALYSIS PATIENTS. CBC (HEMOGRAM ONLY)2017-07-31 05:42:00 Test Item Value Reference Range Comments WHITE BLOOD CELL COUNT (BEAKER) (test jepn=051) 13.3 K/ L 3.5-10.5 RED BLOOD CELL COUNT (BEAKER) (test kndu=793) 2.65 M/ L 3.93-5.22 HEMOGLOBIN (BEAKER) (test wnou=175) 7.9 GM/DL 11.2-15.7 HEMATOCRIT (BEAKER) (test lgjr=231) 25.9 % 34.1-44.9 MEAN CORPUSCULAR VOLUME (BEAKER) (test takr=616) 97.7 fL 79.4-94.8 MEAN CORPUSCULAR HEMOGLOBIN (BEAKER) (test 29.8 pg 25.6-32.2 ofpv=770) MEAN CORPUSCULAR HEMOGLOBIN CONC (BEAKER) (test 30.5 GM/DL 32.2-35.5 umic=927) RED CELL DISTRIBUTION WIDTH (BEAKER) (test 15.3 % 11.7-14.4 zkcv=306) PLATELET COUNT (BEAKER) (test tbyl=694) 580 K/CU MM 150-450 MEAN PLATELET VOLUME (BEAKER) (test aquf=341) 9.7 fL 9.4-12.3 NUCLEATED RED BLOOD CELLS (BEAKER) (test 0 /100 WBC 0-0 cugb=577) POCT-GLUCOSE [id number] 21:21:00 Test Item Value Reference Range Comments POC-GLUCOSE METER (BEAKER) 206 mg/dL 70-110 TESTED AT [address] (test gemk=2155) [place] [id number] POCT-GLUCOSE [id number] 17:50:00 Test Item Value Reference Range Comments POC-GLUCOSE METER (BEAKER) 160 mg/dL 70-110 TESTED AT [address] (test nhgp=4940) [facility] [address] POCT-GLUCOSE [id number] 12:12:00 Test Item Value Reference Range Comments POC-GLUCOSE METER (BEAKER) 214 mg/dL 70-110 TESTED AT [address] (test pxze=3197) [place] [id number] POCT-GLUCOSE [id number] 07:59:00 Test Item Value Reference Range Comments POC-GLUCOSE METER (BEAKER) 146 mg/dL 70-110 TESTED AT [address] (test mbmy=1791) [facility] [address] CALCIUM, [id number] 07:23:00 Test Item Value Reference Range Comments CALCIUM IONIZED (BEAKER) (test rflq=632) 1.11 mmol/L 1.12-1.27 PH, BLOOD (BEAKER) (test cjcf=2618) 7.42 [id number] 07:07:00 Test Item Value Reference Range Comments PHOSPHORUS (BEAKER) (test kxmh=822) 3.5 mg/dL 2.3-4.7 [id number] 07:07:00 Test Item Value Reference Range Comments MAGNESIUM (BEAKER) (test tiiz=921) 1.8 mg/dL 1.6-2.6 COMPREHENSIVE METABOLIC [id number] 07:07:00 Test Item Value Reference Range Comments TOTAL PROTEIN (BEAKER) 6.7 gm/dL 6.0-8.3 (test hqfs=086) ALBUMIN (BEAKER) (test 3.1 g/dL 3.5-5.0 bbxo=4214) ALKALINE PHOSPHATASE 53 U/L 40-150 (BEAKER) (test okod=142) BILIRUBIN TOTAL (BEAKER) 0.6 mg/dL 0.2-1.2 (test doim=923) SODIUM (BEAKER) (test 139 meq/L 136-145 xymx=947) POTASSIUM (BEAKER) (test 4.0 meq/L 3.5-5.1 ucxo=955) CHLORIDE (BEAKER) (test 103 meq/L 98-107 rmqu=032) CO2 (BEAKER) (test 27 meq/L 22-29 cgrt=994) BLOOD UREA NITROGEN 16 mg/dL 7-21 (BEAKER) (test ikqw=133) CREATININE (BEAKER) (test 1.34 mg/dL 0.57-1.25 wzto=355) GLUCOSE RANDOM (BEAKER) 116 mg/dL 70-105 (test kayf=019) CALCIUM (BEAKER) (test 9.2 mg/dL 8.4-10.2 fziz=163) AST (SGOT) (BEAKER) (test 15 U/L 5-34 fnbh=564) ALT (SGPT) (BEAKER) (test 11 U/L 6-55 wvhg=874) EGFR (BEAKER) (test 47 mL/min/1.73 sq m ESTIMATED GFR IS NOT mgwc=1222) ACCURATE CREATININE CLEARANCE IN PREDICTING GLOMERULAR FILTRATION RATE. ESTIMATED GFR IS NOT APPLICABLE FOR DIALYSIS PATIENTS. CBC W/PLT COUNT & AUTO [id number] 06:52:00 Test Item Value Reference Range Comments WHITE BLOOD CELL COUNT (BEAKER) (test qwxw=407) 12.8 K/ L 3.5-10.5 RED BLOOD CELL COUNT (BEAKER) (test tmyk=683) 2.43 M/ L 3.93-5.22 HEMOGLOBIN (BEAKER) (test dkxa=044) 7.2 GM/DL 11.2-15.7 HEMATOCRIT (BEAKER) (test tnty=491) 23.8 % 34.1-44.9 MEAN CORPUSCULAR VOLUME (BEAKER) (test zwsz=292) 97.9 fL 79.4-94.8 MEAN CORPUSCULAR HEMOGLOBIN (BEAKER) (test 29.6 pg 25.6-32.2 ikue=352) MEAN CORPUSCULAR HEMOGLOBIN CONC (BEAKER) (test 30.3 GM/DL 32.2-35.5 iebn=451) RED CELL DISTRIBUTION WIDTH (BEAKER) (test 15.0 % 11.7-14.4 hbdi=330) PLATELET COUNT (BEAKER) (test xbvu=441) 456 K/CU MM 150-450 MEAN PLATELET VOLUME (BEAKER) (test ihsg=430) 10.3 fL 9.4-12.3 NUCLEATED RED BLOOD CELLS (BEAKER) (test 0 /100 WBC 0-0 brdt=337) NEUTROPHILS RELATIVE PERCENT (BEAKER) (test 82 % hovj=381) LYMPHOCYTES RELATIVE PERCENT (BEAKER) (test 9 % qoyt=476) MONOCYTES RELATIVE PERCENT (BEAKER) (test 6 % qfnj=297) EOSINOPHILS RELATIVE PERCENT (BEAKER) (test 2 % lghv=343) BASOPHILS RELATIVE PERCENT (BEAKER) (test 0 % qwje=155) NEUTROPHILS ABSOLUTE COUNT (BEAKER) (test 10.52 K/ L 1.56-6.13 zaau=621) LYMPHOCYTES ABSOLUTE COUNT (BEAKER) (test 1.19 K/ L 1.18-3.74 fkxt=183) MONOCYTES ABSOLUTE COUNT (BEAKER) (test 0.73 K/ L 0.24-0.36 wqws=640) EOSINOPHILS ABSOLUTE COUNT (BEAKER) (test 0.22 K/ L 0.04-0.36 rybp=599) BASOPHILS ABSOLUTE COUNT (BEAKER) (test 0.04 K/ L 0.01-0.08 xkkx=544) IMMATURE GRANULOCYTES-RELATIVE PERCENT (BEAKER) 1 % 0-1 (test opff=5510) POCT-GLUCOSE [id number] 21:47:00 Test Item Value Reference Range Comments POC-GLUCOSE METER (BEAKER) 106 mg/dL 70-110 TESTED AT [place] [id number] (test ohlj=4734) [place] [id number] POCT-GLUCOSE [id number] 18:50:00 Test Item Value Reference Range Comments POC-GLUCOSE METER (BEAKER) 175 mg/dL 70-110 TESTED AT [address] (test pgel=3902) [place] [address] [id number] 15:18:00 Test Item Value Reference Range Comments POTASSIUM (BEAKER) (test rnmc=824) 3.7 meq/L 3.5-5.1 [id number] 15:18:00 Test Item Value Reference Range Comments MAGNESIUM (BEAKER) (test uzef=209) 2.2 mg/dL 1.6-2.6 POCT-GLUCOSE [id number] 11:48:00 Test Item Value Reference Range Comments POC-GLUCOSE METER (BEAKER) 131 mg/dL 70-110 TESTED AT [address] (test xopa=0141) [place] [address] BLOOD GAS, [id number] 11:46:00 Test Item Value Reference Range Comments PH ARTERIAL (BEAKER) (test qjyr=972) 7.43 7.35-7.45 PCO2 ARTERIAL (BEAKER) (test item=230) 46 mmHg 35-45 PO2 ARTERIAL (BEAKER) (test oeds=466) 83 mmHg 80-90 O2 SATURATION ARTERIAL (BEAKER) (test gwdx=883) 96.5 % 96.0-97.0 HCO3 ARTERIAL (BEAKER) (test sbwm=995) 30 mmol/L 21-29 BASE EXCESS ARTERIAL (BEAKER) (test rqan=328) 4.8 mmol/L -2.0-3.0 PATIENT TEMPERATURE (BEAKER) (test xnry=0482) 36.9 C FIO2 (BEAKER) (test eqnx=9486) 36.0 % POCT-GLUCOSE [id number] 08:29:00 Test Item Value Reference Range Comments POC-GLUCOSE METER (BEAKER) 129 mg/dL 70-110 TESTED AT [address] (test occo=7616) [place] [address] CALCIUM, [id number] 04:18:00 Test Item Value Reference Range Comments CALCIUM IONIZED (BEAKER) (test stwg=901) 1.11 mmol/L 1.12-1.27 PH, BLOOD (BEAKER) (test zrss=5967) 7.40 B-TYPE NATRIURETIC FACTOR (BNP)2017-07-29 04:06:00 Test Item Value Reference Range Comments B-TYPE NATRIURETIC PEPTIDE (BEAKER) (test 982 pg/mL 0-100 yess=406) [id number] 03:59:00 Test Item Value Reference Range Comments PHOSPHORUS (BEAKER) (test cqfp=655) 3.6 mg/dL 2.3-4.7 [id number] 03:59:00 Test Item Value Reference Range Comments MAGNESIUM (BEAKER) (test pyfm=805) 1.9 mg/dL 1.6-2.6 BASIC METABOLIC [id number] 03:59:00 Test Item Value Reference Range Comments SODIUM (BEAKER) (test 141 meq/L 136-145 jmqe=224) POTASSIUM (BEAKER) (test 3.1 meq/L 3.5-5.1 jnbs=639) CHLORIDE (BEAKER) (test 103 meq/L 98-107 nhpz=972) CO2 (BEAKER) (test 26 meq/L 22-29 ztnf=814) BLOOD UREA NITROGEN 17 mg/dL 7-21 (BEAKER) (test siiu=627) CREATININE (BEAKER) (test 1.43 mg/dL 0.57-1.25 rkyh=706) GLUCOSE RANDOM (BEAKER) 110 mg/dL 70-105 (test hszh=518) CALCIUM (BEAKER) (test 9.0 mg/dL 8.4-10.2 nans=470) EGFR (BEAKER) (test 44 mL/min/1.73 sq m ESTIMATED GFR IS NOT zqbr=3117) ACCURATE CREATININE CLEARANCE IN PREDICTING GLOMERULAR FILTRATION RATE. ESTIMATED GFR IS NOT APPLICABLE FOR DIALYSIS PATIENTS. CBC (HEMOGRAM ONLY)2017-07-29 03:51:00 Test Item Value Reference Range Comments WHITE BLOOD CELL COUNT (BEAKER) (test rceb=633) 12.2 K/ L 3.5-10.5 RED BLOOD CELL COUNT (BEAKER) (test bosx=416) 2.48 M/ L 3.93-5.22 HEMOGLOBIN (BEAKER) (test agew=299) 7.4 GM/DL 11.2-15.7 HEMATOCRIT (BEAKER) (test efdw=944) 24.2 % 34.1-44.9 MEAN CORPUSCULAR VOLUME (BEAKER) (test ugou=272) 97.6 fL 79.4-94.8 MEAN CORPUSCULAR HEMOGLOBIN (BEAKER) (test 29.8 pg 25.6-32.2 xlxx=625) MEAN CORPUSCULAR HEMOGLOBIN CONC (BEAKER) (test 30.6 GM/DL 32.2-35.5 dksx=095) RED CELL DISTRIBUTION WIDTH (BEAKER) (test 15.1 % 11.7-14.4 nslm=611) PLATELET COUNT (BEAKER) (test mocp=592) 410 K/CU MM 150-450 MEAN PLATELET VOLUME (BEAKER) (test avme=266) 10.2 fL 9.4-12.3 NUCLEATED RED BLOOD CELLS (BEAKER) (test 0 /100 WBC 0-0 nvnd=071) POCT-GLUCOSE [id number] 23:55:00 Test Item Value Reference Range Comments POC-GLUCOSE METER (BEAKER) 164 mg/dL 70-[address] [facility] [address] (test hrmx=1371) [facility] [address] HERPES VIRUS ANTIBODY, [id number] 11:02:00 Test Item Value Reference Range Comments HERPES VIRUS IGM (BEAKER) (test yenj=0252) Negative HSV IgM 1=NEGATIVEHSV IgM 2=NEGATIVETOXOPLASMA GONDII ANTIBODY, [id number] 11 :02:00 Test Item Value Reference Range Comments TOXOPLASMA IGM ANTIBODY (BEAKER) (test tqit=301) Negative RAD, CHEST, 1 VIEW, NON [id number] 10:48:00Reason for exam:->acute respiratory insufficiencyShould this be [...] obliquity. No pneumothorax is seen. Signed: Yoshi Martinezort Verified Date/Time: 07/28/2017 10:48:24 Reading Location: [facility] Radiology Reading Room [id number] 05:13:00 Test Item Value Reference Range Comments PHOSPHORUS (BEAKER) (test fyzg=973) 3.3 mg/dL 2.3-4.7 [id number] 05:13:00 Test Item Value Reference Range Comments MAGNESIUM (BEAKER) (test fqqi=085) 1.9 mg/dL 1.6-2.6 HEPATIC FUNCTION [id number] 05:13:00 Test Item Value Reference Range Comments TOTAL PROTEIN (BEAKER) (test gyjj=310) 7.5 gm/dL 6.0-8.3 ALBUMIN (BEAKER) (test ftaa=1418) 3.6 g/dL 3.5-5.0 BILIRUBIN TOTAL (BEAKER) (test uryl=489) 0.9 mg/dL 0.2-1.2 BILIRUBIN DIRECT (BEAKER) (test ettr=338) 0.4 mg/dL 0.1-0.5 ALKALINE PHOSPHATASE (BEAKER) (test giqv=859) 66 U/L 40-150 AST (SGOT) (BEAKER) (test wyhd=439) 21 U/L 5-34 ALT (SGPT) (BEAKER) (test hxoe=746) 17 U/L 6-55 COMPREHENSIVE METABOLIC [id number] 05:13:00 Test Item Value Reference Range Comments TOTAL PROTEIN (BEAKER) 7.5 gm/dL 6.0-8.3 (test pgnv=038) ALBUMIN (BEAKER) (test 3.6 g/dL 3.5-5.0 vtro=0734) ALKALINE PHOSPHATASE 66 U/L 40-150 (BEAKER) (test htrd=658) BILIRUBIN TOTAL (BEAKER) 0.9 mg/dL 0.2-1.2 (test qjoh=837) SODIUM (BEAKER) (test 143 meq/L 136-145 shho=407) POTASSIUM (BEAKER) (test 3.5 meq/L 3.5-5.1 vcnn=295) CHLORIDE (BEAKER) (test 105 meq/L 98-107 usbz=826) CO2 (BEAKER) (test 25 meq/L 22-29 colv=174) BLOOD UREA NITROGEN 18 mg/dL 7-21 (BEAKER) (test madg=118) CREATININE (BEAKER) (test 1.43 mg/dL 0.57-1.25 bgzr=954) GLUCOSE RANDOM (BEAKER) 130 mg/dL 70-105 (test mqap=385) CALCIUM (BEAKER) (test 9.6 mg/dL 8.4-10.2 tqgp=717) AST (SGOT) (BEAKER) (test 21 U/L 5-34 icjr=072) ALT (SGPT) (BEAKER) (test 17 U/L 6-55 pejm=197) EGFR (BEAKER) (test 44 mL/min/1.73 sq m ESTIMATED GFR IS NOT ewkg=4911) ACCURATE CREATININE CLEARANCE IN PREDICTING GLOMERULAR FILTRATION RATE. ESTIMATED GFR IS NOT APPLICABLE FOR DIALYSIS PATIENTS. LACTATE DEHYDROGENASE (LDH)2017-07-28 05:13:00 Test Item Value Reference Range Comments LACTATE DEHYDROGENASE (BEAKER) (test jhqi=195) 639 U/L 125-220 CBC W/PLT COUNT & AUTO [id number] 04:57:00 Test Item Value Reference Range Comments WHITE BLOOD CELL COUNT (BEAKER) (test opha=743) 13.6 K/ L 3.5-10.5 RED BLOOD CELL COUNT (BEAKER) (test esgj=273) 2.86 M/ L 3.93-5.22 HEMOGLOBIN (BEAKER) (test wxfm=223) 8.5 GM/DL 11.2-15.7 HEMATOCRIT (BEAKER) (test eqsu=379) 28.9 % 34.1-44.9 MEAN CORPUSCULAR VOLUME (BEAKER) (test cxyx=869) 101.0 fL 79.4-94.8 MEAN CORPUSCULAR HEMOGLOBIN (BEAKER) (test 29.7 pg 25.6-32.2 ytwl=764) MEAN CORPUSCULAR HEMOGLOBIN CONC (BEAKER) (test 29.4 GM/DL 32.2-35.5 geoh=672) RED CELL DISTRIBUTION WIDTH (BEAKER) (test 15.2 % 11.7-14.4 yzyy=065) PLATELET COUNT (BEAKER) (test dmva=027) 375 K/CU MM 150-450 MEAN PLATELET VOLUME (BEAKER) (test bsdb=737) 10.7 fL 9.4-12.3 NUCLEATED RED BLOOD CELLS (BEAKER) (test 0 /100 WBC 0-0 klpa=991) NEUTROPHILS RELATIVE PERCENT (BEAKER) (test 82 % cfll=610) LYMPHOCYTES RELATIVE PERCENT (BEAKER) (test 9 % hite=247) MONOCYTES RELATIVE PERCENT (BEAKER) (test 6 % arqi=228) EOSINOPHILS RELATIVE PERCENT (BEAKER) (test 2 % hnnc=898) BASOPHILS RELATIVE PERCENT (BEAKER) (test 1 % ecbm=469) NEUTROPHILS ABSOLUTE COUNT (BEAKER) (test 11.11 K/ L 1.56-6.13 hlhx=630) LYMPHOCYTES ABSOLUTE COUNT (BEAKER) (test 1.17 K/ L 1.18-3.74 zzcj=299) MONOCYTES ABSOLUTE COUNT (BEAKER) (test 0.83 K/ L 0.24-0.36 bofe=876) EOSINOPHILS ABSOLUTE COUNT (BEAKER) (test 0.25 K/ L 0.04-0.36 sccl=677) BASOPHILS ABSOLUTE COUNT (BEAKER) (test 0.07 K/ L 0.01-0.08 fpgp=493) IMMATURE GRANULOCYTES-RELATIVE PERCENT (BEAKER) 1 % 0-1 (test vybv=1930) OCCULT BLOOD, [id number] 01:02:00 Test Item Value Reference Range Comments FECAL OCCULT BLOOD (BEAKER) (test dzmk=985) Negative Negative POCT-GLUCOSE [id number] 00:46:00 Test Item Value Reference Range Comments POC-GLUCOSE METER (BEAKER) 149 mg/dL 70-[address] [facility] [address] (test xrfu=9712) [facility] [address] C. DIFFICILE GDH [id number] 19:51:00 Test Item Value Reference Range Comments CDT TOXIN (test Negative Negative bydo=[id number]) CDT GDH ANTIGEN (test Negative Negative No indication of Clostridium wnid=[id number]) difficile infection and no colonization. Discontinue enteric isolation and therapy. Testing performed by [employer] Rapid Cassette Assay. For GDH, published sensitivity of the assay is 98.7% compared to cytotoxicity testing. For Toxin AB, published sensitivity is 87.8% and specificity 99.4% compared to cytotoxicity testing.Verification of kit performance was done by the [facility] Microbiology Lab prior to clinical use.POCT-GLUCOSE [id number] 18:11:00 Test Item Value Reference Range Comments POC-GLUCOSE METER (BEAKER) 201 mg/dL 70-110 TESTED AT [address] (test xnms=3384) [facility] [address] BLOOD GAS, [id number] 17:03:00 Test Item Value Reference Range Comments PH ARTERIAL (BEAKER) (test jwec=378) 7.41 7.35-7.45 PCO2 ARTERIAL (BEAKER) (test guvf=307) 45 mmHg 35-45 PO2 ARTERIAL (BEAKER) (test gndo=974) 94 mmHg 80-90 O2 SATURATION ARTERIAL (BEAKER) (test telb=474) 97.3 % 96.0-97.0 HCO3 ARTERIAL (BEAKER) (test xnbr=069) 28 mmol/L 21-29 BASE EXCESS ARTERIAL (BEAKER) (test dcnf=334) 2.3 mmol/L -2.0-3.0 PATIENT TEMPERATURE (BEAKER) (test jugz=3096) 36.6 C FIO2 (BEAKER) (test huxq=4452) 40.0 % POCT-GLUCOSE [id number] 12:44:00 Test Item Value Reference Range Comments POC-GLUCOSE METER (BEAKER) 117 mg/dL 70-110 TESTED AT [address] (test gkbp=8527) [place] [id number] B-TYPE NATRIURETIC FACTOR (BNP)2017-07-27 11:13:00 Test Item Value Reference Range Comments B-TYPE NATRIURETIC PEPTIDE (BEAKER) (test 1198 pg/mL 0-100 gdgf=457) LACTIC ACID, VENOUS, WHOLE [id number] 11:12:00 Test Item Value Reference Range Comments LACTATE BLOOD VENOUS (2) (BEAKER) (test 0.7 mmol/L 0.5-2.2 xkpw=9227) Effective 08/06/2015: Units/Reference Range ChangeNew: 0.5-2.2 mmol/L Previous: 5 -20 mg/dLOXYGEN SATURATION, [id number] 10:28:00 Test Item Value Reference Range Comments O2 SATURATION (MEASURED) (BEAKER) (test ninb=1669) 59.6 % RAD, CHEST, 1 VIEW, NON [id number] 08:23:00Reason for exam:->acute respiratory insufficiencyShould this be [...] Verified Date/Time: 07/27/2017 08:23 :08 [facility] POCT-GLUCOSE [id number] 07:53:00 Test Item Value Reference Range Comments POC-GLUCOSE METER (BEAKER) 124 mg/dL 70-[address] [facility] [address] (test vqra=0692) [facility] [address] BASIC METABOLIC [id number] 06:33:00 Test Item Value Reference Range Comments SODIUM (BEAKER) (test 144 meq/L 136-145 owba=139) POTASSIUM (BEAKER) (test 3.8 meq/L 3.5-5.1 sbop=562) CHLORIDE (BEAKER) (test 109 meq/L 98-107 agjm=525) CO2 (BEAKER) (test 24 meq/L 22-29 lvlh=571) BLOOD UREA NITROGEN 20 mg/dL 7-21 (BEAKER) (test hjln=629) CREATININE (BEAKER) (test 1.40 mg/dL 0.57-1.25 llpp=991) GLUCOSE RANDOM (BEAKER) 111 mg/dL 70-105 (test bsgj=045) CALCIUM (BEAKER) (test 8.8 mg/dL 8.4-10.2 jexj=940) EGFR (BEAKER) (test 45 mL/min/1.73 sq m ESTIMATED GFR IS NOT gpoe=9601) ACCURATE CREATININE CLEARANCE IN PREDICTING GLOMERULAR FILTRATION RATE. ESTIMATED GFR IS NOT APPLICABLE FOR DIALYSIS PATIENTS. [id number] 06:24:00 Test Item Value Reference Range Comments PHOSPHORUS (BEAKER) (test lraa=729) 3.3 mg/dL 2.3-4.7 BASIC METABOLIC [id number] 06:24:00 Test Item Value Reference Range Comments SODIUM (BEAKER) (test 145 meq/L 136-145 pbov=653) POTASSIUM (BEAKER) (test 3.8 meq/L 3.5-5.1 hrjo=824) CHLORIDE (BEAKER) (test 110 meq/L 98-107 bhes=099) CO2 (BEAKER) (test 24 meq/L 22-29 oioh=143) BLOOD UREA NITROGEN 21 mg/dL 7-21 (BEAKER) (test wlis=598) CREATININE (BEAKER) (test 1.39 mg/dL 0.57-1.25 nqat=957) GLUCOSE RANDOM (BEAKER) 112 mg/dL 70-105 (test mogu=338) CALCIUM (BEAKER) (test 8.9 mg/dL 8.4-10.2 ghwq=516) EGFR (BEAKER) (test 45 mL/min/1.73 sq m ESTIMATED GFR IS NOT kfzz=8655) ACCURATE CREATININE CLEARANCE IN PREDICTING GLOMERULAR FILTRATION RATE. ESTIMATED GFR IS NOT APPLICABLE FOR DIALYSIS PATIENTS. [id number] 03:27:00 Test Item Value Reference Range Comments PROCALCITONIN (BEAKER) (test xzbk=3645) 0.28 ng/mL <0.05 SEPSIS RISK (ng/mL)Low: 0.05-0.50Intermediate: 0.51-2.00High: & gt;=2.01LACTATE DEHYDROGENASE (LDH)2017-07-27 03:07:00 Test Item Value Reference Range Comments LACTATE DEHYDROGENASE (BEAKER) (test jrkm=926) 615 U/L 125-220 HEPATIC FUNCTION [id number] 03:07:00 Test Item Value Reference Range Comments TOTAL PROTEIN (BEAKER) (test izmb=863) 6.8 gm/dL 6.0-8.3 ALBUMIN (BEAKER) (test ghva=3794) 3.2 g/dL 3.5-5.0 BILIRUBIN TOTAL (BEAKER) (test gegi=207) 0.9 mg/dL 0.2-1.2 BILIRUBIN DIRECT (BEAKER) (test csqi=049) 0.5 mg/dL 0.1-0.5 ALKALINE PHOSPHATASE (BEAKER) (test fnht=471) 58 U/L 40-150 AST (SGOT) (BEAKER) (test ohrz=868) 21 U/L 5-34 ALT (SGPT) (BEAKER) (test ckzl=480) 15 U/L 6-55 CALCIUM, [id number] 02:57:00 Test Item Value Reference Range Comments CALCIUM IONIZED (BEAKER) (test ehkn=687) 1.14 mmol/L 1.12-1.27 PH, BLOOD (BEAKER) (test pypj=3413) 7.42 CBC W/PLT COUNT & AUTO [id number] 02:56:00 Test Item Value Reference Range Comments WHITE BLOOD CELL COUNT (BEAKER) (test wssb=308) 12.4 K/ L 3.5-10.5 RED BLOOD CELL COUNT (BEAKER) (test jvoi=479) 2.50 M/ L 3.93-5.22 HEMOGLOBIN (BEAKER) (test ssre=206) 7.4 GM/DL 11.2-15.7 HEMATOCRIT (BEAKER) (test zhvc=139) 24.7 % 34.1-44.9 MEAN CORPUSCULAR VOLUME (BEAKER) (test daxv=225) 98.8 fL 79.4-94.8 MEAN CORPUSCULAR HEMOGLOBIN (BEAKER) (test 29.6 pg 25.6-32.2 olzj=609) MEAN CORPUSCULAR HEMOGLOBIN CONC (BEAKER) (test 30.0 GM/DL 32.2-35.5 odqf=959) RED CELL DISTRIBUTION WIDTH (BEAKER) (test 15.1 % 11.7-14.4 pnhz=861) PLATELET COUNT (BEAKER) (test uqbz=998) 233 K/CU MM 150-450 MEAN PLATELET VOLUME (BEAKER) (test zkea=860) 10.5 fL 9.4-12.3 NUCLEATED RED BLOOD CELLS (BEAKER) (test 0 /100 WBC 0-0 lipr=016) NEUTROPHILS RELATIVE PERCENT (BEAKER) (test 80 % lmqv=636) LYMPHOCYTES RELATIVE PERCENT (BEAKER) (test 9 % yccr=751) MONOCYTES RELATIVE PERCENT (BEAKER) (test 7 % stqd=660) EOSINOPHILS RELATIVE PERCENT (BEAKER) (test 2 % fvfg=158) BASOPHILS RELATIVE PERCENT (BEAKER) (test 0 % xawg=389) NEUTROPHILS ABSOLUTE COUNT (BEAKER) (test 9.94 K/ L 1.56-6.13 wvea=833) LYMPHOCYTES ABSOLUTE COUNT (BEAKER) (test 1.15 K/ L 1.18-3.74 atgg=782) MONOCYTES ABSOLUTE COUNT (BEAKER) (test 0.90 K/ L 0.24-0.36 jxsi=075) EOSINOPHILS ABSOLUTE COUNT (BEAKER) (test 0.24 K/ L 0.04-0.36 kuhe=867) BASOPHILS ABSOLUTE COUNT (BEAKER) (test 0.05 K/ L 0.01-0.08 mbtt=742) IMMATURE GRANULOCYTES-RELATIVE PERCENT (BEAKER) 1 % 0-1 (test xzkh=5818) [id number] 01:29:00 Test Item Value Reference Range Comments PHOSPHORUS (BEAKER) (test wegh=688) 3.5 mg/dL 2.3-4.7 BASIC METABOLIC [id number] 01:29:00 Test Item Value Reference Range Comments SODIUM (BEAKER) (test 145 meq/L 136-145 gzrq=991) POTASSIUM (BEAKER) (test 3.4 meq/L 3.5-5.1 olvq=600) CHLORIDE (BEAKER) (test 107 meq/L 98-107 viwe=655) CO2 (BEAKER) (test 26 meq/L 22-29 qrjh=296) BLOOD UREA NITROGEN 21 mg/dL 7-21 (BEAKER) (test fmym=950) CREATININE (BEAKER) (test 1.47 mg/dL 0.57-1.25 wokw=827) GLUCOSE RANDOM (BEAKER) 138 mg/dL 70-105 (test sybx=582) CALCIUM (BEAKER) (test 9.1 mg/dL 8.4-10.2 haux=228) EGFR (BEAKER) (test 43 mL/min/1.73 sq m ESTIMATED GFR IS NOT rzxk=9538) ACCURATE CREATININE CLEARANCE IN PREDICTING GLOMERULAR FILTRATION RATE. ESTIMATED GFR IS NOT APPLICABLE FOR DIALYSIS PATIENTS. POCT-GLUCOSE [id number] 22:08:00 Test Item Value Reference Range Comments POC-GLUCOSE METER (BEAKER) 166 mg/dL 70-[address] [facility] [address] (test srdo=7506) [facility] [address] [id number] 21:22:00 Test Item Value Reference Range Comments MAGNESIUM (BEAKER) (test nczy=072) 2.2 mg/dL 1.6-2.6 [id number] 19:23:00 Test Item Value Reference Range Comments PHOSPHORUS (BEAKER) (test fvxb=764) 2.9 mg/dL 2.3-4.7 BASIC METABOLIC [id number] 19:23:00 Test Item Value Reference Range Comments SODIUM (BEAKER) (test 145 meq/L 136-145 npit=408) POTASSIUM (BEAKER) (test 3.6 meq/L 3.5-5.1 nqsd=269) CHLORIDE (BEAKER) (test 109 meq/L 98-107 rwwf=065) CO2 (BEAKER) (test 24 meq/L 22-29 rqvh=470) BLOOD UREA NITROGEN 22 mg/dL 7-21 (BEAKER) (test axaf=085) CREATININE (BEAKER) (test 1.48 mg/dL 0.57-1.25 odku=708) GLUCOSE RANDOM (BEAKER) 150 mg/dL 70-105 (test rogk=326) CALCIUM (BEAKER) (test 9.0 mg/dL 8.4-10.2 fkwv=296) EGFR (BEAKER) (test 42 mL/min/1.73 sq m ESTIMATED GFR IS NOT dtdo=7801) ACCURATE CREATININE CLEARANCE IN PREDICTING GLOMERULAR FILTRATION RATE. ESTIMATED GFR IS NOT APPLICABLE FOR DIALYSIS PATIENTS. POCT-GLUCOSE [id number] 18:13:00 Test Item Value Reference Range Comments POC-GLUCOSE METER (BEAKER) 188 mg/dL 70-[address] [facility] [address] (test okuf=7169) [facility] [address] [id number] 13:12:00 Test Item Value Reference Range Comments PHOSPHORUS (BEAKER) (test pert=872) 2.7 mg/dL 2.3-4.7 BASIC METABOLIC [id number] 13:12:00 Test Item Value Reference Range Comments SODIUM (BEAKER) (test 144 meq/L 136-145 ieqk=652) POTASSIUM (BEAKER) (test 3.5 meq/L 3.5-5.1 qczq=246) CHLORIDE (BEAKER) (test 108 meq/L 98-107 bzcb=873) CO2 (BEAKER) (test 26 meq/L 22-29 cxed=471) BLOOD UREA NITROGEN 23 mg/dL 7-21 (BEAKER) (test bzsb=396) CREATININE (BEAKER) (test 1.45 mg/dL 0.57-1.25 mbcv=786) GLUCOSE RANDOM (BEAKER) 183 mg/dL 70-105 (test qhum=349) CALCIUM (BEAKER) (test 8.5 mg/dL 8.4-10.2 npjp=317) EGFR (BEAKER) (test 43 mL/min/1.73 sq m ESTIMATED GFR IS NOT eynv=5786) ACCURATE CREATININE CLEARANCE IN PREDICTING GLOMERULAR FILTRATION RATE. ESTIMATED GFR IS NOT APPLICABLE FOR DIALYSIS PATIENTS. POCT-GLUCOSE [id number] 12:07:00 Test Item Value Reference Range Comments POC-GLUCOSE METER (BEAKER) 203 mg/dL 70-110 TESTED AT [address] (test mavq=8650) [facility] [address] [id number] 09:50:00 Test Item Value Reference Range Comments MAGNESIUM (BEAKER) (test vacy=396) 2.6 mg/dL 1.6-2.6 RAD, CHEST, 1 VIEW, NON [id number] 08:06:00Reason for exam:->acute respiratory insufficiencyShould this be [...] MDReport Verified Date/Time: 07/26/2017 08:06:19 Reading Location: [facility] Radiology Reading Room POCT-GLUCOSE [id number] 07:58:00 Test Item Value Reference Range Comments POC-GLUCOSE METER (BEAKER) 176 mg/dL 70-[address] [facility] [address] (test ihte=3896) [facility] [address] OXYGEN SATURATION, [id number] 05:23:00 Test Item Value Reference Range Comments O2 SATURATION (MEASURED) (BEAKER) (test dntf=7737) 64.5 % calibrationBLOOD GAS, [id number] 04:43:00 Test Item Value Reference Range Comments PH ARTERIAL (BEAKER) (test bgst=438) 7.44 7.35-7.45 PCO2 ARTERIAL (BEAKER) (test rari=542) 44 mmHg 35-45 PO2 ARTERIAL (BEAKER) (test aciw=515) 127 mmHg 80-90 O2 SATURATION ARTERIAL (BEAKER) (test fspu=733) 98.6 % 96.0-97.0 HCO3 ARTERIAL (BEAKER) (test qnlf=165) 29 mmol/L 21-29 BASE EXCESS ARTERIAL (BEAKER) (test pfdk=280) 4.6 mmol/L -2.0-3.0 PATIENT TEMPERATURE (BEAKER) (test rfal=1846) 37.3 C FIO2 (BEAKER) (test eqij=4074) 100.0 % [id number] 04:31:00 Test Item Value Reference Range Comments PHOSPHORUS (BEAKER) (test pknl=423) 3.4 mg/dL 2.3-4.7 [id number] 04:31:00 Test Item Value Reference Range Comments MAGNESIUM (BEAKER) (test brid=577) 2.2 mg/dL 1.6-2.6 BASIC METABOLIC [id number] 04:31:00 Test Item Value Reference Range Comments SODIUM (BEAKER) (test 146 meq/L 136-145 afml=128) POTASSIUM (BEAKER) (test 3.7 meq/L 3.5-5.1 rzmk=886) CHLORIDE (BEAKER) (test 108 meq/L 98-107 vpnu=185) CO2 (BEAKER) (test 28 meq/L 22-29 asvn=820) BLOOD UREA NITROGEN 23 mg/dL 7-21 (BEAKER) (test ybqj=599) CREATININE (BEAKER) (test 1.51 mg/dL 0.57-1.25 sujy=068) GLUCOSE RANDOM (BEAKER) 151 mg/dL 70-105 (test rwbi=486) CALCIUM (BEAKER) (test 9.4 mg/dL 8.4-10.2 gaee=732) EGFR (BEAKER) (test 41 mL/min/1.73 sq m ESTIMATED GFR IS NOT djia=6290) ACCURATE CREATININE CLEARANCE IN PREDICTING GLOMERULAR FILTRATION RATE. ESTIMATED GFR IS NOT APPLICABLE FOR DIALYSIS PATIENTS. HEPATIC FUNCTION [id number] 04:31:00 Test Item Value Reference Range Comments TOTAL PROTEIN (BEAKER) (test rhtq=615) 6.6 gm/dL 6.0-8.3 ALBUMIN (BEAKER) (test gkfc=9830) 3.2 g/dL 3.5-5.0 BILIRUBIN TOTAL (BEAKER) (test uoyo=722) 1.0 mg/dL 0.2-1.2 BILIRUBIN DIRECT (BEAKER) (test dxfx=012) 0.5 mg/dL 0.1-0.5 ALKALINE PHOSPHATASE (BEAKER) (test caal=144) 60 U/L 40-150 AST (SGOT) (BEAKER) (test zzor=020) 25 U/L 5-34 ALT (SGPT) (BEAKER) (test lama=969) 18 U/L 6-55 COMPREHENSIVE METABOLIC [id number] 04:31:00 Test Item Value Reference Range Comments TOTAL PROTEIN (BEAKER) 6.6 gm/dL 6.0-8.3 (test olxa=489) ALBUMIN (BEAKER) (test 3.2 g/dL 3.5-5.0 fyho=4665) ALKALINE PHOSPHATASE 60 U/L 40-150 (BEAKER) (test ihao=628) BILIRUBIN TOTAL (BEAKER) 1.0 mg/dL 0.2-1.2 (test hfvc=784) SODIUM (BEAKER) (test 146 meq/L 136-145 azuw=947) POTASSIUM (BEAKER) (test 3.7 meq/L 3.5-5.1 shhd=697) CHLORIDE (BEAKER) (test 108 meq/L 98-107 wsiz=354) CO2 (BEAKER) (test 28 meq/L 22-29 eauf=464) BLOOD UREA NITROGEN 23 mg/dL 7-21 (BEAKER) (test apls=335) CREATININE (BEAKER) (test 1.51 mg/dL 0.57-1.25 bvbm=674) GLUCOSE RANDOM (BEAKER) 151 mg/dL 70-105 (test mnsi=715) CALCIUM (BEAKER) (test 9.4 mg/dL 8.4-10.2 gjii=526) AST (SGOT) (BEAKER) (test 25 U/L 5-34 rzll=382) ALT (SGPT) (BEAKER) (test 18 U/L 6-55 aken=860) EGFR (BEAKER) (test 41 mL/min/1.73 sq m ESTIMATED GFR IS NOT vlyt=3247) ACCURATE CREATININE CLEARANCE IN PREDICTING GLOMERULAR FILTRATION RATE. ESTIMATED GFR IS NOT APPLICABLE FOR DIALYSIS PATIENTS. LACTATE DEHYDROGENASE (LDH)2017-07-26 04:31:00 Test Item Value Reference Range Comments LACTATE DEHYDROGENASE (BEAKER) (test gvbj=036) 661 U/L 125-220 CALCIUM, [id number] 04:23:00 Test Item Value Reference Range Comments CALCIUM IONIZED (BEAKER) (test rtkd=963) 1.15 mmol/L 1.12-1.27 PH, BLOOD (BEAKER) (test yeyl=4054) 7.47 CBC W/PLT COUNT & AUTO [id number] 04:20:00 Test Item Value Reference Range Comments WHITE BLOOD CELL COUNT (BEAKER) (test lnog=074) 13.0 K/ L 3.5-10.5 RED BLOOD CELL COUNT (BEAKER) (test gmuv=347) 2.56 M/ L 3.93-5.22 HEMOGLOBIN (BEAKER) (test yovd=738) 7.6 GM/DL 11.2-15.7 HEMATOCRIT (BEAKER) (test zqjf=148) 25.4 % 34.1-44.9 MEAN CORPUSCULAR VOLUME (BEAKER) (test ekii=876) 99.2 fL 79.4-94.8 MEAN CORPUSCULAR HEMOGLOBIN (BEAKER) (test 29.7 pg 25.6-32.2 fevj=662) MEAN CORPUSCULAR HEMOGLOBIN CONC (BEAKER) (test 29.9 GM/DL 32.2-35.5 zqra=794) RED CELL DISTRIBUTION WIDTH (BEAKER) (test 15.0 % 11.7-14.4 boii=672) PLATELET COUNT (BEAKER) (test lczs=376) 161 K/CU MM 150-450 MEAN PLATELET VOLUME (BEAKER) (test otbg=803) 11.0 fL 9.4-12.3 NUCLEATED RED BLOOD CELLS (BEAKER) (test 0 /100 WBC 0-0 cufs=077) NEUTROPHILS RELATIVE PERCENT (BEAKER) (test 79 % dqrt=226) LYMPHOCYTES RELATIVE PERCENT (BEAKER) (test 10 % fhps=106) MONOCYTES RELATIVE PERCENT (BEAKER) (test 7 % kkug=537) EOSINOPHILS RELATIVE PERCENT (BEAKER) (test 2 % ghle=892) BASOPHILS RELATIVE PERCENT (BEAKER) (test 1 % jhxo=341) NEUTROPHILS ABSOLUTE COUNT (BEAKER) (test 10.33 K/ L 1.56-6.13 rpca=410) LYMPHOCYTES ABSOLUTE COUNT (BEAKER) (test 1.35 K/ L 1.18-3.74 kgqr=482) MONOCYTES ABSOLUTE COUNT (BEAKER) (test 0.96 K/ L 0.24-0.36 hdjy=503) EOSINOPHILS ABSOLUTE COUNT (BEAKER) (test 0.19 K/ L 0.04-0.36 jesv=131) BASOPHILS ABSOLUTE COUNT (BEAKER) (test 0.07 K/ L 0.01-0.08 ibnk=706) IMMATURE GRANULOCYTES-RELATIVE PERCENT (BEAKER) 1 % 0-1 (test mxnj=2225) [id number] 21:19:00 Test Item Value Reference Range Comments PHOSPHORUS (BEAKER) (test irky=590) 4.4 mg/dL 2.3-4.7 [id number] 21:19:00 Test Item Value Reference Range Comments MAGNESIUM (BEAKER) (test pyxm=827) 2.1 mg/dL 1.6-2.6 BASIC METABOLIC [id number] 21:19:00 Test Item Value Reference Range Comments SODIUM (BEAKER) (test 146 meq/L 136-145 bqte=154) POTASSIUM (BEAKER) (test 3.9 meq/L 3.5-5.1 gfjo=244) CHLORIDE (BEAKER) (test 108 meq/L 98-107 oevk=164) CO2 (BEAKER) (test 27 meq/L 22-29 rhak=063) BLOOD UREA NITROGEN 24 mg/dL 7-21 (BEAKER) (test ogvp=104) CREATININE (BEAKER) (test 1.64 mg/dL 0.57-1.25 iiiq=937) GLUCOSE RANDOM (BEAKER) 120 mg/dL 70-105 (test pohh=556) CALCIUM (BEAKER) (test 9.5 mg/dL 8.4-10.2 kbxb=010) EGFR (BEAKER) (test 38 mL/min/1.73 sq m ESTIMATED GFR IS NOT fzsi=9857) ACCURATE CREATININE CLEARANCE IN PREDICTING GLOMERULAR FILTRATION RATE. ESTIMATED GFR IS NOT APPLICABLE FOR DIALYSIS PATIENTS. POCT-GLUCOSE [id number] 18:36:00 Test Item Value Reference Range Comments POC-GLUCOSE METER (BEAKER) 129 mg/dL 70-[address] [facility] [id number] [facility] (test ndjm=1966) [facility] [id number] POCT-GLUCOSE [id number] 16:19:00 Test Item Value Reference Range Comments POC-GLUCOSE METER (BEAKER) 132 mg/dL 70-110 TESTED AT [place] [id number] [facility] (test qttz=6544) [facility] [address] [id number] 13:57:00 Test Item Value Reference Range Comments PHOSPHORUS (BEAKER) (test fzzw=072) 4.2 mg/dL 2.3-4.7 BASIC METABOLIC [id number] 13:57:00 Test Item Value Reference Range Comments SODIUM (BEAKER) (test 147 meq/L 136-145 drdt=902) POTASSIUM (BEAKER) (test 3.7 meq/L 3.5-5.1 ixai=831) CHLORIDE (BEAKER) (test 110 meq/L 98-107 ehkk=126) CO2 (BEAKER) (test 25 meq/L 22-29 uafm=500) BLOOD UREA NITROGEN 23 mg/dL 7-21 (BEAKER) (test iwap=335) CREATININE (BEAKER) (test 1.58 mg/dL 0.57-1.25 vobz=992) GLUCOSE RANDOM (BEAKER) 129 mg/dL 70-105 (test ewpb=522) CALCIUM (BEAKER) (test 9.2 mg/dL 8.4-10.2 yveq=686) EGFR (BEAKER) (test 39 mL/min/1.73 sq m ESTIMATED GFR IS NOT dray=8953) ACCURATE CREATININE CLEARANCE IN PREDICTING GLOMERULAR FILTRATION RATE. ESTIMATED GFR IS NOT APPLICABLE FOR DIALYSIS PATIENTS. BLOOD GAS, [id number] 13:48:00 Test Item Value Reference Range Comments PH ARTERIAL (BEAKER) (test yfgn=662) 7.42 7.35-7.45 PCO2 ARTERIAL (BEAKER) (test vfwd=228) 47 mmHg 35-45 PO2 ARTERIAL (BEAKER) (test hgaw=175) 202 mmHg 80-90 O2 SATURATION ARTERIAL (BEAKER) (test grdt=326) 99.4 % 96.0-97.0 HCO3 ARTERIAL (BEAKER) (test tpai=530) 29 mmol/L 21-29 BASE EXCESS ARTERIAL (BEAKER) (test ibhx=092) 4.4 mmol/L -2.0-3.0 PATIENT TEMPERATURE (BEAKER) (test ckig=3460) 37.6 C FIO2 (BEAKER) (test mexa=1040) 100.0 % POCT-GLUCOSE [id number] 13:31:00 Test Item Value Reference Range Comments POC-GLUCOSE METER (BEAKER) 128 mg/dL 70-110 TESTED AT [address] (test whkh=7511) [place] [id number] POCT-GLUCOSE [id number] 11:02:00 Test Item Value Reference Range Comments POC-GLUCOSE METER (BEAKER) 137 mg/dL 70-110 TESTED AT [address] (test szmi=2428) [facility] [address] POCT-GLUCOSE [id number] 11:02:00 Test Item Value Reference Range Comments POC-GLUCOSE METER (BEAKER) 141 mg/dL 70-110 TESTED AT [address] (test crkz=3326) [facility] [address] POCT-GLUCOSE [id number] 11:02:00 Test Item Value Reference Range Comments POC-GLUCOSE METER (BEAKER) 104 mg/dL 70-110 TESTED AT [address] (test sbca=1642) [facility] [address] BLOOD [id number] 11:00:00 Test Item Value Reference Range Comments CULTURE (BEAKER) (test sluz=1656) No growth in 5 days BLOOD [id number] 11:00:00 Test Item Value Reference Range Comments CULTURE (BEAKER) (test uwfh=5551) No growth in 5 days CBC W/PLT COUNT & AUTO [id number] 08:54:00 Test Item Value Reference Range Comments WHITE BLOOD CELL COUNT (BEAKER) (test nvad=204) 13.8 K/ L 3.5-10.5 RED BLOOD CELL COUNT (BEAKER) (test ddyj=705) 2.54 M/ L 3.93-5.22 HEMOGLOBIN (BEAKER) (test ttxs=344) 7.7 GM/DL 11.2-15.7 HEMATOCRIT (BEAKER) (test epeb=501) 25.2 % 34.1-44.9 MEAN CORPUSCULAR VOLUME (BEAKER) (test xrzp=825) 99.2 fL 79.4-94.8 MEAN CORPUSCULAR HEMOGLOBIN (BEAKER) (test 30.3 pg 25.6-32.2 ysvs=455) MEAN CORPUSCULAR HEMOGLOBIN CONC (BEAKER) (test 30.6 GM/DL 32.2-35.5 igal=874) RED CELL DISTRIBUTION WIDTH (BEAKER) (test 15.2 % 11.7-14.4 cuqa=742) PLATELET COUNT (BEAKER) (test rgtu=612) 127 K/CU MM 150-450 MEAN PLATELET VOLUME (BEAKER) (test vqbl=864) 10.6 fL 9.4-12.3 NUCLEATED RED BLOOD CELLS (BEAKER) (test 0 /100 WBC 0-0 ltce=381) NEUTROPHILS RELATIVE PERCENT (BEAKER) (test 81 % ceuo=288) LYMPHOCYTES RELATIVE PERCENT (BEAKER) (test 8 % noam=128) MONOCYTES RELATIVE PERCENT (BEAKER) (test 9 % dpnn=018) EOSINOPHILS RELATIVE PERCENT (BEAKER) (test 1 % oxjh=356) BASOPHILS RELATIVE PERCENT (BEAKER) (test 0 % ssuo=002) NEUTROPHILS ABSOLUTE COUNT (BEAKER) (test 11.11 K/ L 1.56-6.13 qysd=966) LYMPHOCYTES ABSOLUTE COUNT (BEAKER) (test 1.14 K/ L 1.18-3.74 vhrp=354) MONOCYTES ABSOLUTE COUNT (BEAKER) (test 1.20 K/ L 0.24-0.36 ughh=769) EOSINOPHILS ABSOLUTE COUNT (BEAKER) (test 0.15 K/ L 0.04-0.36 msxm=584) BASOPHILS ABSOLUTE COUNT (BEAKER) (test 0.04 K/ L 0.01-0.08 iyia=980) IMMATURE GRANULOCYTES-RELATIVE PERCENT (BEAKER) 1 % 0-1 (test vnzt=9046) BLOOD GAS, [id number] 08:40:00 Test Item Value Reference Range Comments PH ARTERIAL (BEAKER) (test gdys=146) 7.43 7.35-7.45 PCO2 ARTERIAL (BEAKER) (test goun=987) 35 mmHg 35-45 PO2 ARTERIAL (BEAKER) (test lhzf=879) 82 mmHg 80-90 O2 SATURATION ARTERIAL (BEAKER) (test azih=808) 95.7 % 96.0-97.0 HCO3 ARTERIAL (BEAKER) (test gnia=826) 22 mmol/L 21-29 BASE EXCESS ARTERIAL (BEAKER) (test bgny=442) -1.3 mmol/L -2.0-3.0 PATIENT TEMPERATURE (BEAKER) (test zajh=8932) 38.3 C FIO2 (BEAKER) (test pqur=9678) 40.0 % [id number] 06:59:00 Test Item Value Reference Range Comments PHOSPHORUS (BEAKER) (test dqrm=226) 3.4 mg/dL 2.3-4.7 [id number] 06:59:00 Test Item Value Reference Range Comments MAGNESIUM (BEAKER) (test ytsr=996) 2.0 mg/dL 1.6-2.6 BASIC METABOLIC [id number] 06:59:00 Test Item Value Reference Range Comments SODIUM (BEAKER) (test 147 meq/L 136-145 muap=158) POTASSIUM (BEAKER) (test 3.7 meq/L 3.5-5.1 hxko=561) CHLORIDE (BEAKER) (test 111 meq/L 98-107 pvtb=517) CO2 (BEAKER) (test 23 meq/L 22-29 ymkx=065) BLOOD UREA NITROGEN 24 mg/dL 7-21 (BEAKER) (test vbnz=506) CREATININE (BEAKER) (test 1.57 mg/dL 0.57-1.25 lajo=266) GLUCOSE RANDOM (BEAKER) 121 mg/dL 70-105 (test gppc=782) CALCIUM (BEAKER) (test 9.0 mg/dL 8.4-10.2 hnix=074) EGFR (BEAKER) (test 39 mL/min/1.73 sq m ESTIMATED GFR IS NOT teja=8001) ACCURATE CREATININE CLEARANCE IN PREDICTING GLOMERULAR FILTRATION RATE. ESTIMATED GFR IS NOT APPLICABLE FOR DIALYSIS PATIENTS. POCT-GLUCOSE [id number] 06:27:00 Test Item Value Reference Range Comments POC-GLUCOSE METER (BEAKER) 95 mg/dL 70-[address] [facility] [address] [facility] (test fqlt=0604) [facility] [address] POCT-GLUCOSE [id number] 06:04:00 Test Item Value Reference Range Comments POC-GLUCOSE METER (BEAKER) 128 mg/dL 70-[address] [facility] [address] (test xtft=3801) [facility] [address] [id number] 05:36:00 Test Item Value Reference Range Comments PHOSPHORUS (BEAKER) (test gowr=165) 3.4 mg/dL 2.3-4.7 BASIC METABOLIC [id number] 05:36:00 Test Item Value Reference Range Comments SODIUM (BEAKER) (test 146 meq/L 136-145 iuji=805) POTASSIUM (BEAKER) (test 3.6 meq/L 3.5-5.1 fxyi=417) CHLORIDE (BEAKER) (test 110 meq/L 98-107 jruj=224) CO2 (BEAKER) (test 25 meq/L 22-29 tyoq=272) BLOOD UREA NITROGEN 25 mg/dL 7-21 (BEAKER) (test vehi=314) CREATININE (BEAKER) (test 1.58 mg/dL 0.57-1.25 mjyw=926) GLUCOSE RANDOM (BEAKER) 114 mg/dL 70-105 (test hece=421) CALCIUM (BEAKER) (test 8.9 mg/dL 8.4-10.2 pddx=004) EGFR (BEAKER) (test 39 mL/min/1.73 sq m ESTIMATED GFR IS NOT gzlg=9678) ACCURATE CREATININE CLEARANCE IN PREDICTING GLOMERULAR FILTRATION RATE. ESTIMATED GFR IS NOT APPLICABLE FOR DIALYSIS PATIENTS. HEPATIC FUNCTION [id number] 05:36:00 Test Item Value Reference Range Comments TOTAL PROTEIN (BEAKER) (test eagd=371) 6.3 gm/dL 6.0-8.3 ALBUMIN (BEAKER) (test hqar=7805) 3.1 g/dL 3.5-5.0 BILIRUBIN TOTAL (BEAKER) (test qiov=620) 1.1 mg/dL 0.2-1.2 BILIRUBIN DIRECT (BEAKER) (test ucak=345) 0.7 mg/dL 0.1-0.5 ALKALINE PHOSPHATASE (BEAKER) (test kmry=223) 54 U/L 40-150 AST (SGOT) (BEAKER) (test axme=839) 23 U/L 5-34 ALT (SGPT) (BEAKER) (test kcdm=316) 17 U/L 6-55 LACTATE DEHYDROGENASE (LDH)2017-07-25 05:36:00 Test Item Value Reference Range Comments LACTATE DEHYDROGENASE (BEAKER) (test wbte=302) 695 U/L 125-220 POCT-GLUCOSE [id number] 05:24:00 Test Item Value Reference Range Comments POC-GLUCOSE METER (BEAKER) 102 mg/dL 70-[address] [facility] [address] [facility] (test aaky=1963) [facility] [address] RAD, CHEST, 1 VIEW, NON [id number] 04:43:00Reason for exam:-> impellaShould this be performed at the bedside?->YesFINAL REPORT Chest one view. Clinical history: impella Comparison: Chest radiograph 07/24/17 Technique: A single frontal view of the chest was obtained. Findings: Cardiomediastinal contours are unchanged. Endotracheal and feeding tubes as well as a right IJ Fallon-Jagdeep catheter are unchanged in position. There are patchy bibasilar opacities which may represent atelectasis and/or pneumonia. There is mild elevation of the left hemidiaphragm. There is no definite pleural effusionor pneumothorax. Signed: [facility] Verified Date/Time: 07/25/2017 04:43:27 ReadingLocation: [facility] B1 C013T Transitional Reading Room [id number] 00:51:00 Test Item Value Reference Range Comments PHOSPHORUS (BEAKER) (test wutg=014) 3.4 mg/dL 2.3-4.7 BASIC METABOLIC [id number] 00:51:00 Test Item Value Reference Range Comments SODIUM (BEAKER) (test 146 meq/L 136-145 lmza=782) POTASSIUM (BEAKER) (test 4.0 meq/L 3.5-5.1 zynh=862) CHLORIDE (BEAKER) (test 110 meq/L 98-107 hwzx=097) CO2 (BEAKER) (test 26 meq/L 22-29 xuhv=539) BLOOD UREA NITROGEN 26 mg/dL 7-21 (BEAKER) (test jqlq=500) CREATININE (BEAKER) (test 1.53 mg/dL 0.57-1.25 gjlg=645) GLUCOSE RANDOM (BEAKER) 105 mg/dL 70-105 (test hrsn=964) CALCIUM (BEAKER) (test 8.8 mg/dL 8.4-10.2 socr=995) EGFR (BEAKER) (test 41 mL/min/1.73 sq m ESTIMATED GFR IS NOT nvfm=2730) ACCURATE CREATININE CLEARANCE IN PREDICTING GLOMERULAR FILTRATION RATE. ESTIMATED GFR IS NOT APPLICABLE FOR DIALYSIS PATIENTS. POCT-GLUCOSE [id number] 00:32:00 Test Item Value Reference Range Comments POC-GLUCOSE METER (BEAKER) 119 mg/dL 70-110 TESTED AT [address] (test elwc=7589) [place] [address] POCT-GLUCOSE [id number] 00:27:00 Test Item Value Reference Range Comments POC-GLUCOSE METER (BEAKER) 114 mg/dL 70-110 TESTED AT [address] (test vpye=7293) [place] [address] POCT-GLUCOSE [id number] 23:58:00 Test Item Value Reference Range Comments POC-GLUCOSE METER (BEAKER) 117 mg/dL 70-110 TESTED AT [address] (test kcoy=6438) [place] [address] [id number] 21:24:00 Test Item Value Reference Range Comments MAGNESIUM (BEAKER) (test eqcg=659) 2.0 mg/dL 1.6-2.6 POCT-GLUCOSE [id number] 20:24:00 Test Item Value Reference Range Comments POC-GLUCOSE METER (BEAKER) 130 mg/dL 70-110 TESTED AT [address] (test uwun=1588) [place] [address] [id number] 19:20:00 Test Item Value Reference Range Comments POTASSIUM (BEAKER) (test gtrx=237) 3.6 meq/L 3.5-5.1 [id number] 19:20:00 Test Item Value Reference Range Comments GLUCOSE RANDOM (BEAKER) (test jqmy=411) 168 mg/dL 70-105 [id number] 18:01:00 Test Item Value Reference Range Comments PHOSPHORUS (BEAKER) (test rgaa=944) 3.7 mg/dL 2.3-4.7 BASIC METABOLIC [id number] 18:01:00 Test Item Value Reference Range Comments SODIUM (BEAKER) (test 145 meq/L 136-145 czga=778) POTASSIUM (BEAKER) (test 3.9 meq/L 3.5-5.1 rjkf=242) CHLORIDE (BEAKER) (test 109 meq/L 98-107 tomo=394) CO2 (BEAKER) (test 27 meq/L 22-29 vxfl=459) BLOOD UREA NITROGEN 26 mg/dL 7-21 (BEAKER) (test eznp=317) CREATININE (BEAKER) (test 1.47 mg/dL 0.57-1.25 vfbk=348) GLUCOSE RANDOM (BEAKER) 210 mg/dL 70-105 (test sggz=120) CALCIUM (BEAKER) (test 8.5 mg/dL 8.4-10.2 jhcn=281) EGFR (BEAKER) (test 43 mL/min/1.73 sq m ESTIMATED GFR IS NOT rpbn=2751) ACCURATE CREATININE CLEARANCE IN PREDICTING GLOMERULAR FILTRATION RATE. ESTIMATED GFR IS NOT APPLICABLE FOR DIALYSIS PATIENTS. GLUCOSE-STAT [id number] 17:14:00 Test Item Value Reference Range Comments GLUCOSE RANDOM (BEAKER) (test tmum=258) 208 mg/dL 70-110 BLOOD GAS, [id number] 17:13:00 Test Item Value Reference Range Comments PH ARTERIAL (BEAKER) (test ufwd=463) 7.44 7.35-7.45 PCO2 ARTERIAL (BEAKER) (test upug=772) 43 mmHg 35-45 PO2 ARTERIAL (BEAKER) (test hlmv=110) 58 mmHg 80-90 O2 SATURATION ARTERIAL (BEAKER) (test iemb=438) 90.8 % 96.0-97.0 HCO3 ARTERIAL (BEAKER) (test oblp=914) 28 mmol/L 21-29 BASE EXCESS ARTERIAL (BEAKER) (test rgru=676) 3.9 mmol/L -2.0-3.0 PATIENT TEMPERATURE (BEAKER) (test skcu=4253) 37.0 C FIO2 (BEAKER) (test yazz=9065) 100.0 % RAD, CHEST, 1 VIEW, NON [id number] 14:00:00Reason for exam:->post intubationShould this be performed at the bedside?->YesFINAL REPORT AP chest. HISTORY: Endotracheal tube COMPARISON: 07/24/2017 IMPRESSION:Endotracheal tube projects deep in the trachea, approximately 1-2 cm above the level of the toro. Cardiomegaly similar to previous. Worsening aeration at the left lung base. Mild pulmonary vascular congestion. No pneumothorax. Signed: Mitchel Jarquin MDReport Verified Date/Time: 07/24/2017 14:00:17 Reading Location: [facility] C013Y CT Body Reading Room [id number] 13:40:00 Test Item Value Reference Range Comments PHOSPHORUS (BEAKER) (test glhr=364) 4.3 mg/dL 2.3-4.7 [id number] 13:40:00 Test Item Value Reference Range Comments MAGNESIUM (BEAKER) (test dmiy=276) 2.0 mg/dL 1.6-2.6 BASIC METABOLIC [id number] 13:40:00 Test Item Value Reference Range Comments SODIUM (BEAKER) (test 145 meq/L 136-145 iiqc=452) POTASSIUM (BEAKER) (test 3.9 meq/L 3.5-5.1 sbwq=013) CHLORIDE (BEAKER) (test 108 meq/L 98-107 losr=319) CO2 (BEAKER) (test 24 meq/L 22-29 uelp=760) BLOOD UREA NITROGEN 28 mg/dL 7-21 (BEAKER) (test ccdd=369) CREATININE (BEAKER) (test 1.43 mg/dL 0.57-1.25 scza=359) GLUCOSE RANDOM (BEAKER) 206 mg/dL 70-105 (test knsr=036) CALCIUM (BEAKER) (test 8.5 mg/dL 8.4-10.2 wwgz=066) EGFR (BEAKER) (test 44 mL/min/1.73 sq m ESTIMATED GFR IS NOT uslw=6935) ACCURATE CREATININE CLEARANCE IN PREDICTING GLOMERULAR FILTRATION RATE. ESTIMATED GFR IS NOT APPLICABLE FOR DIALYSIS PATIENTS. LACTIC ACID, ARTERIAL, WHOLE [id number] 13:36:00 Test Item Value Reference Range Comments LACTATE BLOOD ARTERIAL (2) (BEAKER) (test 0.7 mmol/L 0.5-2.2 czlr=7753) Effective 08/06/2015: Units/Reference Range ChangeNew: 0.5-2.2 mmol/L Previous: 5 -20 mg/dLCBC W/PLT COUNT & AUTO [id number] 13:24:00 Test Item Value Reference Range Comments WHITE BLOOD CELL COUNT (BEAKER) (test xqlj=026) 10.5 K/ L 3.5-10.5 RED BLOOD CELL COUNT (BEAKER) (test iqpr=235) 2.70 M/ L 3.93-5.22 HEMOGLOBIN (BEAKER) (test xudp=028) 8.1 GM/DL 11.2-15.7 HEMATOCRIT (BEAKER) (test amax=361) 27.0 % 34.1-44.9 MEAN CORPUSCULAR VOLUME (BEAKER) (test nstf=187) 100.0 fL 79.4-94.8 MEAN CORPUSCULAR HEMOGLOBIN (BEAKER) (test 30.0 pg 25.6-32.2 qlui=503) MEAN CORPUSCULAR HEMOGLOBIN CONC (BEAKER) (test 30.0 GM/DL 32.2-35.5 lmbq=346) RED CELL DISTRIBUTION WIDTH (BEAKER) (test 14.9 % 11.7-14.4 fyzs=348) PLATELET COUNT (BEAKER) (test ogts=403) 117 K/CU MM 150-450 MEAN PLATELET VOLUME (BEAKER) (test zijj=818) 10.9 fL 9.4-12.3 NUCLEATED RED BLOOD CELLS (BEAKER) (test 0 /100 WBC 0-0 gsze=346) NEUTROPHILS RELATIVE PERCENT (BEAKER) (test 78 % yqyo=163) LYMPHOCYTES RELATIVE PERCENT (BEAKER) (test 10 % vlhc=664) MONOCYTES RELATIVE PERCENT (BEAKER) (test 10 % vslb=650) EOSINOPHILS RELATIVE PERCENT (BEAKER) (test 1 % jjrm=947) BASOPHILS RELATIVE PERCENT (BEAKER) (test 0 % wdbl=252) NEUTROPHILS ABSOLUTE COUNT (BEAKER) (test 8.20 K/ L 1.56-6.13 nsyq=683) LYMPHOCYTES ABSOLUTE COUNT (BEAKER) (test 1.00 K/ L 1.18-3.74 uhue=234) MONOCYTES ABSOLUTE COUNT (BEAKER) (test 1.06 K/ L 0.24-0.36 vwie=746) EOSINOPHILS ABSOLUTE COUNT (BEAKER) (test 0.09 K/ L 0.04-0.36 pjaj=860) BASOPHILS ABSOLUTE COUNT (BEAKER) (test 0.04 K/ L 0.01-0.08 nwez=806) IMMATURE GRANULOCYTES-RELATIVE PERCENT (BEAKER) 1 % 0-1 (test rgrz=1926) OXYGEN SATURATION, [id number] 13:08:00 Test Item Value Reference Range Comments O2 SATURATION (MEASURED) (BEAKER) (test xool=7457) 65.1 % PA catheter tipBLOOD GAS, [id number] 13:08:00 Test Item Value Reference Range Comments PH ARTERIAL (BEAKER) (test jelc=780) 7.42 7.35-7.45 PCO2 ARTERIAL (BEAKER) (test jert=483) 42 mmHg 35-45 PO2 ARTERIAL (BEAKER) (test hegh=058) 239 mmHg 80-90 O2 SATURATION ARTERIAL (BEAKER) (test bdbc=591) 99.6 % 96.0-97.0 HCO3 ARTERIAL (BEAKER) (test qyvm=359) 27 mmol/L 21-29 BASE EXCESS ARTERIAL (BEAKER) (test fgxj=760) 2.1 mmol/L -2.0-3.0 PATIENT TEMPERATURE (BEAKER) (test xrxi=0111) 36.6 C FIO2 (BEAKER) (test okeu=4640) 100.0 % GLUCOSE-STAT [id number] 13:08:00 Test Item Value Reference Range Comments GLUCOSE RANDOM (BEAKER) (test vozs=361) 194 mg/dL 70-110 HGB/HCT (H&H) - STAT [id number] 13:08:00 Test Item Value Reference Range Comments HEMOGLOBIN (BEAKER) (test onvs=028) 8.8 g/dL 12.0-15.0 HEMATOCRIT (BEAKER) (test hohd=717) 26.0 % 36.0-45.0 CALCIUM, [id number] 13:08:00 Test Item Value Reference Range Comments CALCIUM IONIZED (BEAKER) (test jktq=110) 1.08 mmol/L 1.12-1.27 PH, BLOOD (BEAKER) (test nlhn=8457) 7.41 SODIUM NA-STAT [id number] 13:07:00 Test Item Value Reference Range Comments SODIUM (BEAKER) (test hwce=528) 140 meq/L 135-148 POTASSIUM-STAT [id number] 13:07:00 Test Item Value Reference Range Comments POTASSIUM (BEAKER) (test cmmq=573) 3.7 meq/L 3.6-5.5 SODIUM NA-STAT [id number] 11:39:00 Test Item Value Reference Range Comments SODIUM (BEAKER) (test dxun=508) 141 meq/L 135-148 POTASSIUM-STAT [id number] 11:39:00 Test Item Value Reference Range Comments POTASSIUM (BEAKER) (test bnmw=139) 3.6 meq/L 3.6-5.5 BLOOD GAS, [id number] 11:39:00 Test Item Value Reference Range Comments PH ARTERIAL (BEAKER) (test zavg=920) 7.44 7.35-7.45 PCO2 ARTERIAL (BEAKER) (test cqjx=290) 42 mmHg 35-45 PO2 ARTERIAL (BEAKER) (test gpzv=991) 234 mmHg 80-90 O2 SATURATION ARTERIAL (BEAKER) (test vcer=250) 99.6 % 96.0-97.0 HCO3 ARTERIAL (BEAKER) (test pwxv=203) 28 mmol/L 21-29 BASE EXCESS ARTERIAL (BEAKER) (test dxfi=826) 3.4 mmol/L -2.0-3.0 PATIENT TEMPERATURE (BEAKER) (test kdcb=8078) 36.8 C FIO2 (BEAKER) (test ghrq=4190) 86.0 % GLUCOSE-STAT [id number] 11:39:00 Test Item Value Reference Range Comments GLUCOSE RANDOM (BEAKER) (test iibu=426) 194 mg/dL 70-110 HGB/HCT (H&H) - STAT [id number] 11:39:00 Test Item Value Reference Range Comments HEMOGLOBIN (BEAKER) (test qhag=728) 8.8 g/dL 12.0-15.0 HEMATOCRIT (BEAKER) (test atob=815) 26.0 % 36.0-45.0 CALCIUM, [id number] 11:39:00 Test Item Value Reference Range Comments CALCIUM IONIZED (BEAKER) (test rdgk=537) 1.06 mmol/L 1.12-1.27 PH, BLOOD (BEAKER) (test iczv=0878) 7.44 BLOOD GAS, [id number] 10:56:00 Test Item Value Reference Range Comments PH ARTERIAL (BEAKER) (test mtme=033) 7.43 7.35-7.45 PCO2 ARTERIAL (BEAKER) (test jgpy=370) 46 mmHg 35-45 PO2 ARTERIAL (BEAKER) (test zcpj=149) 223 mmHg 80-90 O2 SATURATION ARTERIAL (BEAKER) (test rbfr=991) 99.5 % 96.0-97.0 HCO3 ARTERIAL (BEAKER) (test thtu=907) 30 mmol/L 21-29 BASE EXCESS ARTERIAL (BEAKER) (test rmad=889) 4.6 mmol/L -2.0-3.0 PATIENT TEMPERATURE (BEAKER) (test epya=9335) 37.0 C FIO2 (BEAKER) (test jiqy=6131) 100.0 % GLUCOSE-STAT [id number] 10:56:00 Test Item Value Reference Range Comments GLUCOSE RANDOM (BEAKER) (test jazd=239) 190 mg/dL 70-110 HGB/HCT (H&H) - STAT [id number] 10:56:00 Test Item Value Reference Range Comments HEMOGLOBIN (BEAKER) (test fzqm=618) 8.7 g/dL 12.0-15.0 HEMATOCRIT (BEAKER) (test cspy=471) 26.0 % 36.0-45.0 SODIUM NA-STAT [id number] 10:55:00 Test Item Value Reference Range Comments SODIUM (BEAKER) (test wkqq=532) 142 meq/L 135-148 POTASSIUM-STAT [id number] 10:55:00 Test Item Value Reference Range Comments POTASSIUM (BEAKER) (test exck=279) 3.5 meq/L 3.6-5.5 [id number] 08:41:00 Test Item Value Reference Range Comments MAGNESIUM (BEAKER) (test coci=382) 2.0 mg/dL 1.6-2.6 BLOOD GAS, [id number] 07:57:00 Test Item Value Reference Range Comments PH ARTERIAL (BEAKER) (test kvao=793) 7.48 7.35-7.45 PCO2 ARTERIAL (BEAKER) (test kbho=993) 37 mmHg 35-45 PO2 ARTERIAL (BEAKER) (test vwob=919) 71 mmHg 80-90 O2 SATURATION ARTERIAL (BEAKER) (test hcca=212) 94.8 % 96.0-97.0 HCO3 ARTERIAL (BEAKER) (test ewbo=309) 27 mmol/L 21-29 BASE EXCESS ARTERIAL (BEAKER) (test bgch=208) 3.5 mmol/L -2.0-3.0 PATIENT TEMPERATURE (BEAKER) (test pjdv=9742) 37.8 C FIO2 (BEAKER) (test gpiy=1543) 32.0 % POCT-GLUCOSE [id number] 07:50:00 Test Item Value Reference Range Comments POC-GLUCOSE METER (BEAKER) 246 mg/dL 70-110 TESTED AT [address] (test fqam=7564) [place] [address] RAD, CHEST, 1 VIEW, NON [id number] 04:54:00Reason for exam:-> impellaShould this be performed at the bedside?->YesFINAL REPORT CLINICAL INDICATION: Support lines. Comparison: 07/23/2017 The cardiomediastinal contours are stable. Central pulmonary vascular prominence and bilateral parenchymalopacities are similar to previous. There is no pneumothorax. Support lines are stable. Signed: Adelso Sorensen Verified Date/Time: 07/24/2017 04:54:08 Reading Location: [address] Reading Room POCT-GLUCOSE [id number] 04:08:00 Test Item Value Reference Range Comments POC-GLUCOSE METER (BEAKER) 137 mg/dL 70-110 TESTED AT [address] (test hrwk=4429) [place] [address] [id number] 03:02:00 Test Item Value Reference Range Comments PHOSPHORUS (BEAKER) (test uvtk=687) 3.7 mg/dL 2.3-4.7 [id number] 03:02:00 Test Item Value Reference Range Comments MAGNESIUM (BEAKER) (test levn=347) 2.3 mg/dL 1.6-2.6 BASIC METABOLIC [id number] 03:02:00 Test Item Value Reference Range Comments SODIUM (BEAKER) (test 145 meq/L 136-145 upbm=306) POTASSIUM (BEAKER) (test 4.0 meq/L 3.5-5.1 nekk=123) CHLORIDE (BEAKER) (test 106 meq/L 98-107 cqlc=470) CO2 (BEAKER) (test 26 meq/L 22-29 tdgj=873) BLOOD UREA NITROGEN 26 mg/dL 7-21 (BEAKER) (test wxet=071) CREATININE (BEAKER) (test 1.47 mg/dL 0.57-1.25 jqnj=966) GLUCOSE RANDOM (BEAKER) 141 mg/dL 70-105 (test hgmf=418) CALCIUM (BEAKER) (test 9.0 mg/dL 8.4-10.2 flrg=883) EGFR (BEAKER) (test 43 mL/min/1.73 sq m ESTIMATED GFR IS NOT vjle=4539) ACCURATE CREATININE CLEARANCE IN PREDICTING GLOMERULAR FILTRATION RATE. ESTIMATED GFR IS NOT APPLICABLE FOR DIALYSIS PATIENTS. HEPATIC FUNCTION [id number] 03:02:00 Test Item Value Reference Range Comments TOTAL PROTEIN (BEAKER) (test lfqz=662) 6.6 gm/dL 6.0-8.3 ALBUMIN (BEAKER) (test aioy=0807) 3.2 g/dL 3.5-5.0 BILIRUBIN TOTAL (BEAKER) (test aqcx=888) 1.2 mg/dL 0.2-1.2 BILIRUBIN DIRECT (BEAKER) (test ufyq=740) 0.6 mg/dL 0.1-0.5 ALKALINE PHOSPHATASE (BEAKER) (test vyjy=330) 55 U/L 40-150 AST (SGOT) (BEAKER) (test pjew=059) 33 U/L 5-34 ALT (SGPT) (BEAKER) (test vgpc=706) 25 U/L 6-55 LACTATE DEHYDROGENASE (LDH)[id number] 03:02:00 Test Item Value Reference Range Comments LACTATE DEHYDROGENASE (BEAKER) (test upqz=328) 879 U/L 125-220 CBC W/PLT COUNT & AUTO [id number] 02:53:00 Test Item Value Reference Range Comments WHITE BLOOD CELL COUNT (BEAKER) (test oaon=976) 12.6 K/ L 3.5-10.5 RED BLOOD CELL COUNT (BEAKER) (test eqqk=276) 2.93 M/ L 3.93-5.22 HEMOGLOBIN (BEAKER) (test wrme=165) 8.7 GM/DL 11.2-15.7 HEMATOCRIT (BEAKER) (test hzly=210) 28.3 % 34.1-44.9 MEAN CORPUSCULAR VOLUME (BEAKER) (test annj=816) 96.6 fL 79.4-94.8 MEAN CORPUSCULAR HEMOGLOBIN (BEAKER) (test 29.7 pg 25.6-32.2 qdgx=983) MEAN CORPUSCULAR HEMOGLOBIN CONC (BEAKER) (test 30.7 GM/DL 32.2-35.5 csrd=943) RED CELL DISTRIBUTION WIDTH (BEAKER) (test 14.7 % 11.7-14.4 jcuf=568) PLATELET COUNT (BEAKER) (test trdb=863) 126 K/CU MM 150-450 MEAN PLATELET VOLUME (BEAKER) (test xsfe=863) 11.0 fL 9.4-12.3 NUCLEATED RED BLOOD CELLS (BEAKER) (test 0 /100 WBC 0-0 xhfh=707) NEUTROPHILS RELATIVE PERCENT (BEAKER) (test 78 % kzpj=681) LYMPHOCYTES RELATIVE PERCENT (BEAKER) (test 10 % lwaw=627) MONOCYTES RELATIVE PERCENT (BEAKER) (test 10 % pihi=675) EOSINOPHILS RELATIVE PERCENT (BEAKER) (test 1 % uvvs=655) BASOPHILS RELATIVE PERCENT (BEAKER) (test 0 % nawh=056) NEUTROPHILS ABSOLUTE COUNT (BEAKER) (test 9.85 K/ L 1.56-6.13 ipaf=250) LYMPHOCYTES ABSOLUTE COUNT (BEAKER) (test 1.27 K/ L 1.18-3.74 qjqj=801) MONOCYTES ABSOLUTE COUNT (BEAKER) (test 1.25 K/ L 0.24-0.36 zyxt=412) EOSINOPHILS ABSOLUTE COUNT (BEAKER) (test 0.10 K/ L 0.04-0.36 gdqt=008) BASOPHILS ABSOLUTE COUNT (BEAKER) (test 0.05 K/ L 0.01-0.08 fxyj=191) IMMATURE GRANULOCYTES-RELATIVE PERCENT (BEAKER) 1 % 0-1 (test kter=9972) [id number] 02:50:00 Test Item Value Reference Range Comments PROTIME (BEAKER) (test veav=833) 16.7 seconds 11.7-14.7 INR (BEAKER) (test rgwr=612) 1.4 <=5.9 PARTIAL THROMBOPLASTIN TIME (BEAKER) (test 78.5 seconds 22.5-36.0 nzum=058) RECOMMENDED COUMADIN/WARFARIN INR THERAPY RANGESSTANDARD DOSE: 2.0 - 3.0 Includes: PROPHYLAXIS forvenous thrombosis, systemic embolization; TREATMENT for venous thrombosis and/or pulmonary embolus.HIGH RISK: Target INR is 2.5-3.5 for patients with mechanical heart valves.BLOOD [id number] 00:00:00 Test Item Value Reference Range Comments CULTURE (BEAKER) (test ijsq=1633) No growth in 5 days BLOOD [id number] 00:00:00 Test Item Value Reference Range Comments CULTURE (BEAKER) (test vtyx=4254) No growth in 5 days [id number] 22:01:00 Test Item Value Reference Range Comments MAGNESIUM (BEAKER) (test hldq=685) 2.0 mg/dL 1.6-2.6 POCT-GLUCOSE [id number] 19:39:00 Test Item Value Reference Range Comments POC-GLUCOSE METER (BEAKER) 135 mg/dL 70-110 TESTED AT [address] (test qzcn=1788) [facility] [address] BASIC METABOLIC [id number] 19:08:00 Test Item Value Reference Range Comments SODIUM (BEAKER) (test 145 meq/L 136-145 tduh=601) POTASSIUM (BEAKER) (test 3.9 meq/L 3.5-5.1 facw=887) CHLORIDE (BEAKER) (test 106 meq/L 98-107 xbzv=255) CO2 (BEAKER) (test 28 meq/L 22-29 blfe=919) BLOOD UREA NITROGEN 26 mg/dL 7-21 (BEAKER) (test eamx=437) CREATININE (BEAKER) (test 1.45 mg/dL 0.57-1.25 fbpz=281) GLUCOSE RANDOM (BEAKER) 119 mg/dL 70-105 (test jyig=284) CALCIUM (BEAKER) (test 9.2 mg/dL 8.4-10.2 jrsr=580) EGFR (BEAKER) (test 43 mL/min/1.73 sq m ESTIMATED GFR IS NOT yays=0531) ACCURATE CREATININE CLEARANCE IN PREDICTING GLOMERULAR FILTRATION RATE. ESTIMATED GFR IS NOT APPLICABLE FOR DIALYSIS PATIENTS. [id number] 19:06:00 Test Item Value Reference Range Comments PHOSPHORUS (BEAKER) (test cwri=493) 3.7 mg/dL 2.3-4.7 VANCOMYCIN LEVEL, [id number] 16:33:00 Test Item Value Reference Range Comments VANCOMYCIN TROUGH (BEAKER) (test gtkv=293) 17.8 ug/mL 10.0-20.0 If vancomycin trough level > 20 mcg/mL, hold next vancomycin dose, and contact MD and pharmacist.VARICELLA ZOSTER ANTIBODY, [id number] 14:47:00 Test Item Value Reference Range Comments VARICELLA ZOSTER IGG (AL) (BEAKER) (test fuoa=8438) 2.3 Al VARICELLA ZOSTER RESULT INTERPRETATIONS: <=0.8 Al Nonreactive: Presumed non-immune to VZV 0.9-1.0 Al Equivocal >=1.1 Al Reactive: Presumed immune to VZVCYTOMEGALOVIRUS ANTIBODY, [id number] 14:46:00 Test Item Value Reference Range Comments CYTOMEGALOVIRUS IGG ANTIBODY (BEAKER) (test Negative dpky=505) CYTOMEGALOVIRUS ANTIBODY, [id number] 14:46:00 Test Item Value Reference Range Comments CYTOMEGALOVIRUS IGM ANTIBODY (BEAKER) (test Negative zugn=815) EBV-VCA ANTIBODY, [id number] 14:46:00 Test Item Value Reference Range Comments MARIO-CARMEN VCA IGG (BEAKER) (test qtky=017) Positive EBV-VCA ANTIBODY, [id number] 14:46:00 Test Item Value Reference Range Comments MARIO-CARMEN VCA IGM (BEAKER) (test hphm=848) Negative HERPES VIRUS ANTIBODY, [id number] 14:45:00 Test Item Value Reference Range Comments HERPES VIRUS IGG (BEAKER) (test eaua=9632) Negative HSV IgG 1=NEGATIVEHSV IgG 2=NEGATIVETOXOPLASMA GONDII ANTIBODY, [id number] 14 :45:00 Test Item Value Reference Range Comments TOXOPLASMA GONDII IGG (BEAKER) (test whbe=963) Negative [id number] 14:37:00 Test Item Value Reference Range Comments PARTIAL THROMBOPLASTIN TIME (BEAKER) (test 69.5 seconds 22.5-36.0 crfq=442) OCCULT BLOOD, [id number] 14:34:00 Test Item Value Reference Range Comments FECAL OCCULT BLOOD (BEAKER) (test uiqz=310) Negative Negative POCT-GLUCOSE [id number] 14:20:00 Test Item Value Reference Range Comments POC-GLUCOSE METER (BEAKER) 166 mg/dL 70-110 TESTED AT [address] (test buse=8631) [place] [id number] POCT-GLUCOSE [id number] 14:20:00 Test Item Value Reference Range Comments POC-GLUCOSE METER (BEAKER) 82 mg/dL 70-110 TESTED AT [address] (test xhly=7421) [place] [id number] 13:00:00 Test Item Value Reference Range Comments PHOSPHORUS (BEAKER) (test yghu=161) 3.2 mg/dL 2.3-4.7 BASIC METABOLIC [id number] 13:00:00 Test Item Value Reference Range Comments SODIUM (BEAKER) (test 143 meq/L 136-145 sbwh=777) POTASSIUM (BEAKER) (test 3.8 meq/L 3.5-5.1 vkys=946) CHLORIDE (BEAKER) (test 104 meq/L 98-107 gznu=547) CO2 (BEAKER) (test 29 meq/L 22-29 rdrh=834) BLOOD UREA NITROGEN 28 mg/dL 7-21 (BEAKER) (test pqhs=256) CREATININE (BEAKER) (test 1.44 mg/dL 0.57-1.25 zxhm=180) GLUCOSE RANDOM (BEAKER) 171 mg/dL 70-105 (test gxyx=897) CALCIUM (BEAKER) (test 9.1 mg/dL 8.4-10.2 wbga=807) EGFR (BEAKER) (test 44 mL/min/1.73 sq m ESTIMATED GFR IS NOT lzmw=6444) ACCURATE CREATININE CLEARANCE IN PREDICTING GLOMERULAR FILTRATION RATE. ESTIMATED GFR IS NOT APPLICABLE FOR DIALYSIS PATIENTS. POCT-GLUCOSE [id number] 12:29:00 Test Item Value Reference Range Comments POC-GLUCOSE METER (BEAKER) 179 mg/dL 70-110 TESTED AT [address] (test rzgx=2080) [facility] [address] CREATININE [id number] 11:15:00 Test Item Value Reference Range Comments CREATININE CLEARANCE (BEAKER) 45.8 mL/min 70.0-140.0 (test plgb=218) VOLUME, TOTAL (BEAKER) (test 3400 ml nvmg=0238) CREATININE URINE (BEAKER) (test 36.8 mg/dL bpqw=261) [id number] (BEAKER) Анна Encarnacion MD (test sxfq=9577) (electronic signature) PATIENT HEIGHT (CM) (BEAKER) 165.1 cm (test wexb=2120) PATIENT WEIGHT (KG) (BEAKER) 84.100 kg (test akrk=6113) [id number] 09:15:00 Test Item Value Reference Range Comments POTASSIUM (BEAKER) (test mpwd=738) 4.1 meq/L 3.5-5.1 PRN - repeat potassium levels every 1 hour until glucose level is less than 450 mg/[id number] 09:15:00 Test Item Value Reference Range Comments MAGNESIUM (BEAKER) (test oysj=052) 2.4 mg/dL 1.6-2.6 PRN - repeat potassium levels every 1 hour until glucose level is less than 450 mg/dLPOCT-GLUCOSE [id number] 08:47:00 Test Item Value Reference Range Comments POC-GLUCOSE METER (BEAKER) 155 mg/dL 70-110 TESTED AT [address] (test nsel=9526) [facility] [address] POCT-GLUCOSE [id number] 06:12:00 Test Item Value Reference Range Comments POC-GLUCOSE METER (BEAKER) 143 mg/dL 70-110 TESTED AT [address] (test ehmf=5284) [facility] [address] POCT-GLUCOSE [id number] 06:12:00 Test Item Value Reference Range Comments POC-GLUCOSE METER (BEAKER) 123 mg/dL 70-110 TESTED AT [address] (test fzpm=9161) [facility] [address] RAD, CHEST, 1 VIEW, NON [id number] 05:36:00Reason for exam:->respiratory insufficiencyFINAL REPORT Chest one view. Clinical history: respiratory insufficiency Comparison: Chest radiograph 07/22/2017 Technique: A single frontal view of the chest was obtained. Findings: Cardiomediastinal contours are unchanged. There is a right IJ Fallon-Jagdeep catheter, with tip inthe right pulmonary artery. [...] [place]ort Verified Date/Time: 07/23/2017 05:36:35 Reading Location: [address] Reading Room CALCIUM, [id number] 05:19:00 Test Item Value Reference Range Comments CALCIUM IONIZED (BEAKER) (test jjke=954) 1.12 mmol/L 1.12-1.27 PH, BLOOD (BEAKER) (test fnue=7656) 7.40 OXYGEN SATURATION, [id number] 05:18:00 Test Item Value Reference Range Comments O2 SATURATION (MEASURED) (BEAKER) (test rlca=9465) 63.1 % POCT-GLUCOSE [id number] 05:05:00 Test Item Value Reference Range Comments POC-GLUCOSE METER (BEAKER) 131 mg/dL 70-110 TESTED AT [address] (test odqj=0465) [facility] [address] BLOOD GAS, [id number] 04:58:00 Test Item Value Reference Range Comments PH ARTERIAL (BEAKER) (test eblv=781) 7.41 7.35-7.45 PCO2 ARTERIAL (BEAKER) (test imab=253) 51 mmHg 35-45 PO2 ARTERIAL (BEAKER) (test odya=711) 93 mmHg 80-90 O2 SATURATION ARTERIAL (BEAKER) (test bczb=844) 96.9 % 96.0-97.0 HCO3 ARTERIAL (BEAKER) (test jrkr=033) 31 mmol/L 21-29 BASE EXCESS ARTERIAL (BEAKER) (test wyjl=738) 5.9 mmol/L -2.0-3.0 PATIENT TEMPERATURE (BEAKER) (test lowf=1870) 37.4 C FIO2 (BEAKER) (test ckct=5250) 70.0 % [id number] 03:35:00 Test Item Value Reference Range Comments PARTIAL THROMBOPLASTIN TIME (BEAKER) (test 70.8 seconds 22.5-36.0 hocm=207) [id number] 03:34:00 Test Item Value Reference Range Comments PHOSPHORUS (BEAKER) (test wyxm=673) 3.0 mg/dL 2.3-4.7 [id number] 03:34:00 Test Item Value Reference Range Comments MAGNESIUM (BEAKER) (test fzyt=375) 2.1 mg/dL 1.6-2.6 BASIC METABOLIC [id number] 03:34:00 Test Item Value Reference Range Comments SODIUM (BEAKER) (test 144 meq/L 136-145 jxmr=496) POTASSIUM (BEAKER) (test 3.9 meq/L 3.5-5.1 hfjx=834) CHLORIDE (BEAKER) (test 105 meq/L 98-107 caut=263) CO2 (BEAKER) (test 29 meq/L 22-29 gsup=137) BLOOD UREA NITROGEN 29 mg/dL 7-21 (BEAKER) (test kqaz=695) CREATININE (BEAKER) (test 1.54 mg/dL 0.57-1.25 zxgw=947) GLUCOSE RANDOM (BEAKER) 119 mg/dL 70-105 (test jazi=020) CALCIUM (BEAKER) (test 9.1 mg/dL 8.4-10.2 kjxb=549) EGFR (BEAKER) (test 40 mL/min/1.73 sq m ESTIMATED GFR IS NOT yqak=7253) ACCURATE CREATININE CLEARANCE IN PREDICTING GLOMERULAR FILTRATION RATE. ESTIMATED GFR IS NOT APPLICABLE FOR DIALYSIS PATIENTS. HEPATIC FUNCTION [id number] 03:34:00 Test Item Value Reference Range Comments TOTAL PROTEIN (BEAKER) (test ojcq=706) 6.7 gm/dL 6.0-8.3 ALBUMIN (BEAKER) (test rpag=4032) 3.3 g/dL 3.5-5.0 BILIRUBIN TOTAL (BEAKER) (test rxjb=604) 1.2 mg/dL 0.2-1.2 BILIRUBIN DIRECT (BEAKER) (test vlrl=873) 0.6 mg/dL 0.1-0.5 ALKALINE PHOSPHATASE (BEAKER) (test kjlq=078) 51 U/L 40-150 AST (SGOT) (BEAKER) (test lkhe=995) 48 U/L 5-34 ALT (SGPT) (BEAKER) (test nahc=071) 29 U/L 6-55 LACTATE DEHYDROGENASE (LDH)2017-07-23 03:34:00 Test Item Value Reference Range Comments LACTATE DEHYDROGENASE (BEAKER) (test yolq=496) 1020 U/L 125-220 CBC W/PLT COUNT & AUTO [id number] 03:25:00 Test Item Value Reference Range Comments WHITE BLOOD CELL COUNT (BEAKER) (test wula=274) 11.7 K/ L 3.5-10.5 RED BLOOD CELL COUNT (BEAKER) (test dizb=582) 3.01 M/ L 3.93-5.22 HEMOGLOBIN (BEAKER) (test efkq=098) 9.0 GM/DL 11.2-15.7 HEMATOCRIT (BEAKER) (test yrxp=618) 28.9 % 34.1-44.9 MEAN CORPUSCULAR VOLUME (BEAKER) (test fgnr=037) 96.0 fL 79.4-94.8 MEAN CORPUSCULAR HEMOGLOBIN (BEAKER) (test 29.9 pg 25.6-32.2 fqpt=668) MEAN CORPUSCULAR HEMOGLOBIN CONC (BEAKER) (test 31.1 GM/DL 32.2-35.5 yhwx=954) RED CELL DISTRIBUTION WIDTH (BEAKER) (test 15.0 % 11.7-14.4 qxyx=824) PLATELET COUNT (BEAKER) (test ckwk=635) 128 K/CU MM 150-450 MEAN PLATELET VOLUME (BEAKER) (test liie=048) 11.3 fL 9.4-12.3 NUCLEATED RED BLOOD CELLS (BEAKER) (test 0 /100 WBC 0-0 zekh=351) NEUTROPHILS RELATIVE PERCENT (BEAKER) (test 78 % zuxg=226) LYMPHOCYTES RELATIVE PERCENT (BEAKER) (test 11 % qwua=075) MONOCYTES RELATIVE PERCENT (BEAKER) (test 10 % sthd=450) EOSINOPHILS RELATIVE PERCENT (BEAKER) (test 1 % yrzm=614) BASOPHILS RELATIVE PERCENT (BEAKER) (test 0 % nvke=593) NEUTROPHILS ABSOLUTE COUNT (BEAKER) (test 9.07 K/ L 1.56-6.13 knds=579) LYMPHOCYTES ABSOLUTE COUNT (BEAKER) (test 1.25 K/ L 1.18-3.74 puop=486) MONOCYTES ABSOLUTE COUNT (BEAKER) (test 1.12 K/ L 0.24-0.36 xrpp=985) EOSINOPHILS ABSOLUTE COUNT (BEAKER) (test 0.12 K/ L 0.04-0.36 tsis=794) BASOPHILS ABSOLUTE COUNT (BEAKER) (test 0.05 K/ L 0.01-0.08 ocdp=537) IMMATURE GRANULOCYTES-RELATIVE PERCENT (BEAKER) 1 % 0-1 (test czro=5651) POCT-GLUCOSE [id number] 03:09:00 Test Item Value Reference Range Comments POC-GLUCOSE METER (BEAKER) 114 mg/dL 70-110 TESTED AT [address] (test tdto=3689) [place] [id number] POCT-GLUCOSE [id number] 03:09:00 Test Item Value Reference Range Comments POC-GLUCOSE METER (BEAKER) 122 mg/dL 70-110 TESTED AT [address] (test iknk=4324) [place] [id number] BASIC METABOLIC [id number] 00:32:00 Test Item Value Reference Range Comments SODIUM (BEAKER) (test 144 meq/L 136-145 vsot=527) POTASSIUM (BEAKER) (test 4.2 meq/L 3.5-5.1 huhp=631) CHLORIDE (BEAKER) (test 105 meq/L 98-107 qjhn=189) CO2 (BEAKER) (test 28 meq/L 22-29 oovz=760) BLOOD UREA NITROGEN 30 mg/dL 7-21 (BEAKER) (test golf=289) CREATININE (BEAKER) (test 1.56 mg/dL 0.57-1.25 ihui=340) GLUCOSE RANDOM (BEAKER) 131 mg/dL 70-105 (test kmsv=949) CALCIUM (BEAKER) (test 9.0 mg/dL 8.4-10.2 rnop=603) EGFR (BEAKER) (test 40 mL/min/1.73 sq m ESTIMATED GFR IS NOT liar=4013) ACCURATE CREATININE CLEARANCE IN PREDICTING GLOMERULAR FILTRATION RATE. ESTIMATED GFR IS NOT APPLICABLE FOR DIALYSIS PATIENTS. [id number] 00:31:00 Test Item Value Reference Range Comments PHOSPHORUS (BEAKER) (test nney=575) 3.4 mg/dL 2.3-4.7 POCT-GLUCOSE [id number] 00:10:00 Test Item Value Reference Range Comments POC-GLUCOSE METER (BEAKER) 140 mg/dL 70-110 TESTED AT [address] (test hssf=5406) [place] [id number] POCT-GLUCOSE [id number] 00:08:00 Test Item Value Reference Range Comments POC-GLUCOSE METER (BEAKER) 121 mg/dL 70-110 TESTED AT [address] (test rdxo=1784) [facility] [address] POCT-GLUCOSE [id number] 00:08:00 Test Item Value Reference Range Comments POC-GLUCOSE METER (BEAKER) 112 mg/dL 70-110 TESTED AT [address] (test hlxl=3042) [facility] [address] POCT-GLUCOSE [id number] 00:08:00 Test Item Value Reference Range Comments POC-GLUCOSE METER (BEAKER) 84 mg/dL 70-110 TESTED AT [address] (test uoea=3574) [place] [id number] BASIC METABOLIC [id number] 20:36:00 Test Item Value Reference Range Comments SODIUM (BEAKER) (test 145 meq/L 136-145 zruz=058) POTASSIUM (BEAKER) (test 3.6 meq/L 3.5-5.1 vehb=930) CHLORIDE (BEAKER) (test 106 meq/L 98-107 jtup=694) CO2 (BEAKER) (test 31 meq/L 22-29 hevq=577) BLOOD UREA NITROGEN 32 mg/dL 7-21 (BEAKER) (test pskw=510) CREATININE (BEAKER) (test 1.56 mg/dL 0.57-1.25 kvra=873) GLUCOSE RANDOM (BEAKER) 85 mg/dL 70-105 (test drhh=612) CALCIUM (BEAKER) (test 9.0 mg/dL 8.4-10.2 nvku=191) EGFR (BEAKER) (test 40 mL/min/1.73 sq m ESTIMATED GFR IS NOT poma=4127) ACCURATE CREATININE CLEARANCE IN PREDICTING GLOMERULAR FILTRATION RATE. ESTIMATED GFR IS NOT APPLICABLE FOR DIALYSIS PATIENTS. [id number] 20:36:00 Test Item Value Reference Range Comments MAGNESIUM (BEAKER) (test bkyl=500) 2.4 mg/dL 1.6-2.6 [id number] 18:26:00 Test Item Value Reference Range Comments PHOSPHORUS (BEAKER) (test qknd=411) 2.4 mg/dL 2.3-4.7 BASIC METABOLIC [id number] 18:26:00 Test Item Value Reference Range Comments SODIUM (BEAKER) (test 144 meq/L 136-145 asal=435) POTASSIUM (BEAKER) (test 3.9 meq/L 3.5-5.1 mnyy=215) CHLORIDE (BEAKER) (test 106 meq/L 98-107 xvsw=230) CO2 (BEAKER) (test 30 meq/L 22-29 agow=748) BLOOD UREA NITROGEN 32 mg/dL 7-21 (BEAKER) (test ouxg=044) CREATININE (BEAKER) (test 1.67 mg/dL 0.57-1.25 skny=800) GLUCOSE RANDOM (BEAKER) 141 mg/dL 70-105 (test tgvf=631) CALCIUM (BEAKER) (test 9.1 mg/dL 8.4-10.2 bnbc=283) EGFR (BEAKER) (test 37 mL/min/1.73 sq m ESTIMATED GFR IS NOT xfyo=5539) ACCURATE CREATININE CLEARANCE IN PREDICTING GLOMERULAR FILTRATION RATE. ESTIMATED GFR IS NOT APPLICABLE FOR DIALYSIS PATIENTS. LACTIC ACID, ARTERIAL, WHOLE [id number] 18:22:00 Test Item Value Reference Range Comments LACTATE BLOOD ARTERIAL (2) (BEAKER) (test 1.0 mmol/L 0.5-2.2 wfoh=3266) Effective 08/06/2015: Units/Reference Range ChangeNew: 0.5-2.2 mmol/L Previous: 5 -20 mg/dLPOCT-GLUCOSE [id number] 17:56:00 Test Item Value Reference Range Comments POC-GLUCOSE METER (BEAKER) 138 mg/dL 70-[address] [facility] [address] (test vmfo=3832) [facility] [address] [id number] 16:19:00 Test Item Value Reference Range Comments POTASSIUM (BEAKER) (test cmtb=970) 3.8 meq/L 3.5-5.1 PRN - repeat potassium levels every 1 hour until glucose level is less than 450 mg/[id number] 16:06:00 Test Item Value Reference Range Comments PARTIAL THROMBOPLASTIN TIME (BEAKER) (test 71.3 seconds 22.5-36.0 xfzu=429) OXYGEN SATURATION, [id number] 15:58:00 Test Item Value Reference Range Comments O2 SATURATION (MEASURED) (BEAKER) (test wbeg=4527) 58.6 % calibrationPOCT-GLUCOSE [id number] 15:51:00 Test Item Value Reference Range Comments POC-GLUCOSE METER (BEAKER) 147 mg/dL 70-[address] [facility] [address] (test jpeq=4732) [facility] [address] RAD, CHEST, 1 VIEW, NON [id number] 14:57:00Reason for exam:->s/p CVC placement Should this be performed at the bedside?->YesFINAL REPORT TECHNIQUE: Frontal chest radiograph dated 07/22/2017. CLINICAL HISTORY: CVC placement COMPARISON STUDY: Chest radiograph performed earlier the same day. IMPRESSION:There has been interval placement of a right-sided Fallon- Jagdeep catheter with the tip in the main pulmonary artery. Impella device is unchanged in appearance. There is left lung base atelectasis. No pleural effusion or pneumothorax. Cardiomediastinal silhouette is normal in size. No pulmonary edema. Bonesare osteopenic. No fracture. Signed: Dawson [place] Verified Date/Time: 07/22/2017 14:57:48 Reading Location: [facility] Radiology Reading Room PROTEIN ELECTROPHORESIS, [id number] 14:45:00 Test Item Value Reference Range Comments ALBUMIN FRACTION (BEAKER) 3.0 g/dL 3.5-5.5 (test hzeq=899) ALPHA 1 FRACTION (BEAKER) 0.4 g/dL 0.2-0.4 (test qcbg=735) ALPHA 2 FRACTION (BEAKER) 0.5 g/dL 0.5-0.9 (test tesy=793) BETA FRACTION (BEAKER) (test 1.0 g/dL 0.6-1.1 odpg=185) GAMMA GLOBULIN FRACTION 1.2 g/dL 0.7-1.7 (BEAKER) (test wqhc=508) INTERPRETATION-119 (BEAKER) Albumin decreased. Alpha (test idde=4048) globulin percentages increased. This suggests an acute phase response. PXVC-CBCHZHURPPH-129 (BEAKER) Анна Encarnacion MD (electronic (test dkpn=4984) signature) PROTEIN TOTAL SERUM, SPEP 6.1 gm/dL 6.0-8.3 (BEAKER) (test qbjy=7184) POCT-GLUCOSE [id number] 14:34:00 Test Item Value Reference Range Comments POC-GLUCOSE METER (BEAKER) 137 mg/dL 70-[address] [facility] [address] (test eeoa=8900) [facility] [address] ANTI-NUCLEAR ANTIBODY (ROSLYN)2017-07-22 13:24:00 Test Item Value Reference Range Comments ANTI-NUCLEAR ANTIBODY (ROSLYN) (BEAKER) (test Positive Negative bhmb=060) ROSLYN TITER AND [id number] 13:24:00 Test Item Value Reference Range Comments ROSLYN TITER (BEAKER) (test zysx=8526) :640 ROSLYN PATTERN (BEAKER) (test vlfa=4091) Homogeneous [id number] 12:50:00 Test Item Value Reference Range Comments PHOSPHORUS (BEAKER) (test pslx=071) 2.5 mg/dL 2.3-4.7 BASIC METABOLIC [id number] 12:50:00 Test Item Value Reference Range Comments SODIUM (BEAKER) (test 145 meq/L 136-145 bunq=051) POTASSIUM (BEAKER) (test 3.6 meq/L 3.5-5.1 xuqx=908) CHLORIDE (BEAKER) (test 107 meq/L 98-107 gtsa=125) CO2 (BEAKER) (test 30 meq/L 22-29 mank=735) BLOOD UREA NITROGEN 37 mg/dL 7-21 (BEAKER) (test flcz=362) CREATININE (BEAKER) (test 1.69 mg/dL 0.57-1.25 jybd=250) GLUCOSE RANDOM (BEAKER) 154 mg/dL 70-105 (test idvu=574) CALCIUM (BEAKER) (test 8.9 mg/dL 8.4-10.2 nuao=875) EGFR (BEAKER) (test 36 mL/min/1.73 sq m ESTIMATED GFR IS NOT qnwv=7542) ACCURATE CREATININE CLEARANCE IN PREDICTING GLOMERULAR FILTRATION RATE. ESTIMATED GFR IS NOT APPLICABLE FOR DIALYSIS PATIENTS. BLOOD GAS, [id number] 12:36:00 Test Item Value Reference Range Comments PH ARTERIAL (BEAKER) (test clab=966) 7.48 7.35-7.45 PCO2 ARTERIAL (BEAKER) (test khkf=704) 44 mmHg 35-45 PO2 ARTERIAL (BEAKER) (test ukgw=913) 156 mmHg 80-90 O2 SATURATION ARTERIAL (BEAKER) (test ibkg=617) 99.1 % 96.0-97.0 HCO3 ARTERIAL (BEAKER) (test ojsl=321) 32 mmol/L 21-29 BASE EXCESS ARTERIAL (BEAKER) (test eioa=192) 7.4 mmol/L -2.0-3.0 PATIENT TEMPERATURE (BEAKER) (test hjvw=8258) 37.4 C FIO2 (BEAKER) (test eehj=2729) 80.0 % POCT-GLUCOSE [id number] 12:26:00 Test Item Value Reference Range Comments POC-GLUCOSE METER (BEAKER) 147 mg/dL 70-110 TESTED AT [address] (test pahg=3924) [place] [address] URINE [id number] 11:56:00 Test Item Value Reference Range Comments CULTURE (BEAKER) (test vmsv=1391) No growth POCT-GLUCOSE [id number] 11:11:00 Test Item Value Reference Range Comments POC-GLUCOSE METER (BEAKER) 172 mg/dL 70-110 TESTED AT [address] (test zlpw=1945) [place] [id number] POCT-GLUCOSE [id number] 09:54:00 Test Item Value Reference Range Comments POC-GLUCOSE METER (BEAKER) 196 mg/dL 70-110 TESTED AT [address] (test axgc=3198) [place] [id number] LACTIC ACID, ARTERIAL, WHOLE [id number] 09:07:00 Test Item Value Reference Range Comments LACTATE BLOOD ARTERIAL (2) (BEAKER) (test 0.7 mmol/L 0.5-2.2 cmwp=5657) Effective 08/06/2015: Units/Reference Range ChangeNew: 0.5-2.2 mmol/L Previous: 5 -20 mg/[id number] 09:06:00 Test Item Value Reference Range Comments MAGNESIUM (BEAKER) (test iusf=286) 2.2 mg/dL 1.6-2.6 POCT-GLUCOSE [id number] 08:39:00 Test Item Value Reference Range Comments POC-GLUCOSE METER (BEAKER) 188 mg/dL 70-110 TESTED AT [address] (test ckuw=9794) [place] [id number] POCT-GLUCOSE [id number] 08:37:00 Test Item Value Reference Range Comments POC-GLUCOSE METER (BEAKER) 195 mg/dL 70-110 TESTED AT [address] (test yjzy=8135) [facility] [address] BLOOD GAS, [id number] 06:46:00 Test Item Value Reference Range Comments PH ARTERIAL (BEAKER) (test zwbc=899) 7.47 7.35-7.45 PCO2 ARTERIAL (BEAKER) (test nzrv=451) 44 mmHg 35-45 PO2 ARTERIAL (BEAKER) (test jrec=955) 57 mmHg 80-90 O2 SATURATION ARTERIAL (BEAKER) (test ruof=525) 91.1 % 96.0-97.0 HCO3 ARTERIAL (BEAKER) (test bfap=565) 32 mmol/L 21-29 BASE EXCESS ARTERIAL (BEAKER) (test uvws=562) 7.1 mmol/L -2.0-3.0 PATIENT TEMPERATURE (BEAKER) (test plbr=7155) 37.0 C [id number] 06:14:00 Test Item Value Reference Range Comments RPR SCREEN (BEAKER) (test enbi=658) Nonreactive Nonreactive CALCIUM, [id number] 05:52:00 Test Item Value Reference Range Comments CALCIUM IONIZED (BEAKER) (test hqvu=864) 1.13 mmol/L 1.12-1.27 PH, BLOOD (BEAKER) (test tnfu=9382) 7.46 [id number] 05:42:00 Test Item Value Reference Range Comments PHOSPHORUS (BEAKER) (test lijs=344) 2.2 mg/dL 2.3-4.7 [id number] 05:42:00 Test Item Value Reference Range Comments MAGNESIUM (BEAKER) (test tqix=943) 2.1 mg/dL 1.6-2.6 HEPATIC FUNCTION [id number] 05:42:00 Test Item Value Reference Range Comments TOTAL PROTEIN (BEAKER) (test zdhl=125) 6.2 gm/dL 6.0-8.3 ALBUMIN (BEAKER) (test nlxv=8019) 3.1 g/dL 3.5-5.0 BILIRUBIN TOTAL (BEAKER) (test fwot=990) 1.4 mg/dL 0.2-1.2 BILIRUBIN DIRECT (BEAKER) (test ifzv=349) 0.7 mg/dL 0.1-0.5 ALKALINE PHOSPHATASE (BEAKER) (test owki=369) 49 U/L 40-150 AST (SGOT) (BEAKER) (test lpoz=557) 74 U/L 5-34 ALT (SGPT) (BEAKER) (test irxk=174) 37 U/L 6-55 LACTATE DEHYDROGENASE (LDH)2017-07-22 05:42:00 Test Item Value Reference Range Comments LACTATE DEHYDROGENASE (BEAKER) (test ojjk=332) 1339 U/L 125-220 [id number] 05:40:00 Test Item Value Reference Range Comments PHOSPHORUS (BEAKER) (test mfsn=837) 2.2 mg/dL 2.3-4.7 BASIC METABOLIC [id number] 05:40:00 Test Item Value Reference Range Comments SODIUM (BEAKER) (test 144 meq/L 136-145 jfus=981) POTASSIUM (BEAKER) (test 4.0 meq/L 3.5-5.1 pceq=245) CHLORIDE (BEAKER) (test 107 meq/L 98-107 mrhq=857) CO2 (BEAKER) (test 28 meq/L 22-29 xker=778) BLOOD UREA NITROGEN 36 mg/dL 7-21 (BEAKER) (test sszh=099) CREATININE (BEAKER) (test 1.79 mg/dL 0.57-1.25 qnhc=984) GLUCOSE RANDOM (BEAKER) 183 mg/dL 70-105 (test pzqt=901) CALCIUM (BEAKER) (test 8.9 mg/dL 8.4-10.2 hlqn=672) EGFR (BEAKER) (test 34 mL/min/1.73 sq m ESTIMATED GFR IS NOT cpyl=4935) ACCURATE CREATININE CLEARANCE IN PREDICTING GLOMERULAR FILTRATION RATE. ESTIMATED GFR IS NOT APPLICABLE FOR DIALYSIS PATIENTS. OXYGEN SATURATION, [id number] 05:29:00 Test Item Value Reference Range Comments O2 SATURATION (MEASURED) (BEAKER) (test sbtx=9625) 54.7 % [id number] 05:29:00 Test Item Value Reference Range Comments PARTIAL THROMBOPLASTIN TIME (BEAKER) (test 70.7 seconds 22.5-36.0 cpyq=505) CBC W/PLT COUNT & AUTO [id number] 05:24:00 Test Item Value Reference Range Comments WHITE BLOOD CELL COUNT (BEAKER) (test cjwm=444) 13.0 K/ L 3.5-10.5 RED BLOOD CELL COUNT (BEAKER) (test qrvn=075) 3.04 M/ L 3.93-5.22 HEMOGLOBIN (BEAKER) (test clmn=948) 9.0 GM/DL 11.2-15.7 HEMATOCRIT (BEAKER) (test qcfg=709) 29.0 % 34.1-44.9 MEAN CORPUSCULAR VOLUME (BEAKER) (test swet=343) 95.4 fL 79.4-94.8 MEAN CORPUSCULAR HEMOGLOBIN (BEAKER) (test 29.6 pg 25.6-32.2 pdid=639) MEAN CORPUSCULAR HEMOGLOBIN CONC (BEAKER) (test 31.0 GM/DL 32.2-35.5 urme=366) RED CELL DISTRIBUTION WIDTH (BEAKER) (test 15.5 % 11.7-14.4 wzco=300) PLATELET COUNT (BEAKER) (test dnvi=279) 132 K/CU MM 150-450 MEAN PLATELET VOLUME (BEAKER) (test jhhd=217) 11.4 fL 9.4-12.3 NUCLEATED RED BLOOD CELLS (BEAKER) (test 0 /100 WBC 0-0 wwxs=365) NEUTROPHILS RELATIVE PERCENT (BEAKER) (test 80 % deab=112) LYMPHOCYTES RELATIVE PERCENT (BEAKER) (test 10 % pmos=961) MONOCYTES RELATIVE PERCENT (BEAKER) (test 9 % jcpq=361) EOSINOPHILS RELATIVE PERCENT (BEAKER) (test 0 % ceja=662) BASOPHILS RELATIVE PERCENT (BEAKER) (test 0 % fkxc=929) NEUTROPHILS ABSOLUTE COUNT (BEAKER) (test 10.44 K/ L 1.56-6.13 zwlz=386) LYMPHOCYTES ABSOLUTE COUNT (BEAKER) (test 1.29 K/ L 1.18-3.74 lzuz=037) MONOCYTES ABSOLUTE COUNT (BEAKER) (test 1.12 K/ L 0.24-0.36 rjqj=476) EOSINOPHILS ABSOLUTE COUNT (BEAKER) (test 0.01 K/ L 0.04-0.36 ujpw=425) BASOPHILS ABSOLUTE COUNT (BEAKER) (test 0.04 K/ L 0.01-0.08 kjqe=008) IMMATURE GRANULOCYTES-RELATIVE PERCENT (BEAKER) 1 % 0-1 (test bhlz=9121) RAD, CHEST, 1 VIEW, NON [id number] 04:45:00Reason for exam:->respiratory insufficiencyFINAL REPORT CLINICAL INDICATION: Respiratory insufficiency Comparison: 07/21/2017 The cardiomediastinal contours are stable. The left hemidiaphragm is slightly elevated. Centralpulmonary vascular congestion and bilateral parenchymal opacities are unchanged. There is no pneumothorax. A femoral Impella device remains in place. Signed: Adelso Sorenseneport Verified Date/Time:07/22/2017 04:45:12 Reading Location: [address] Reading Room POCT-GLUCOSE [id number] 03:01:00 Test Item Value Reference Range Comments POC-GLUCOSE METER (BEAKER) 115 mg/dL 70-110 TESTED AT [address] (test wmjs=8564) [facility] [id number] POCT-GLUCOSE [id number] 00:14:00 Test Item Value Reference Range Comments POC-GLUCOSE METER (BEAKER) 137 mg/dL 70-110 TESTED AT [address] (test trfn=4735) [facility] [address] [id number] 00:09:00 Test Item Value Reference Range Comments POTASSIUM (BEAKER) (test qmcd=337) 3.8 meq/L 3.5-5.1 PRN - repeat glucose levels every 1 hour or as specified by insulin titration orders until glucose level is less than 450 mg/dLCheck Serum Potassium level 2 hours after oral potassium replacement completed or 30 min after intravenous potassium replacement.[id number] 00:09:00 Test Item Value Reference Range Comments MAGNESIUM (BEAKER) (test hgem=695) 2.5 mg/dL 1.6-2.6 PRN - repeat glucose levels every 1 hour or as specified by insulin titration orders until glucose level is less than 450 mg/dLCheck Serum Potassium level 2 hours after oral potassium replacement completed or 30 min after intravenous potassium replacement.[id number] 00:09:00 Test Item Value Reference Range Comments PHOSPHORUS (BEAKER) (test qexe=723) 1.9 mg/dL 2.3-4.7 PRN - repeat glucose levels every 1 hour or as specified by insulin titration orders until glucose level is less than 450 mg/dLCheck Serum Potassium level 2 hours after oral potassium replacement completed or 30 min after intravenous potassium replacement.[id number] 00:09:00 Test Item Value Reference Range Comments GLUCOSE RANDOM (BEAKER) (test ggxn=701) 155 mg/dL 70-105 PRN - repeat glucose levels every 1 hour or as specified by insulin titration orders until glucose level is less than 450 mg/dLCheck Serum Potassium level 2 hours after oral potassium replacement completed or 30 min after intravenous potassium replacement.BASIC METABOLIC [id number] 00:09:00 Test Item Value Reference Range Comments SODIUM (BEAKER) (test 142 meq/L 136-145 rjwt=308) POTASSIUM (BEAKER) (test 3.8 meq/L 3.5-5.1 auka=784) CHLORIDE (BEAKER) (test 105 meq/L 98-107 qthu=374) CO2 (BEAKER) (test 30 meq/L 22-29 snaa=766) BLOOD UREA NITROGEN 37 mg/dL 7-21 (BEAKER) (test fmtf=041) CREATININE (BEAKER) (test 1.80 mg/dL 0.57-1.25 jtlz=544) GLUCOSE RANDOM (BEAKER) 155 mg/dL 70-105 (test zpzo=062) CALCIUM (BEAKER) (test 8.8 mg/dL 8.4-10.2 cxxq=103) EGFR (BEAKER) (test 34 mL/min/1.73 sq m ESTIMATED GFR IS NOT bboo=1054) ACCURATE CREATININE CLEARANCE IN PREDICTING GLOMERULAR FILTRATION RATE. ESTIMATED GFR IS NOT APPLICABLE FOR DIALYSIS PATIENTS. PRN - repeat glucose levels every 1 hour or as specified by insulin titration orders until glucose level is less than 450 mg/dLCheck Serum Potassium level 2 hours after oral potassium replacement completed or 30 min after intravenous potassium replacement.[id number] 00:06:00 Test Item Value Reference Range Comments PARTIAL THROMBOPLASTIN TIME (BEAKER) (test 62.0 seconds 22.5-36.0 rpbo=232) BLOOD GAS, [id number] 20:39:00 Test Item Value Reference Range Comments PH ARTERIAL (BEAKER) (test agjc=562) 7.45 7.35-7.45 PCO2 ARTERIAL (BEAKER) (test xfnk=335) 46 mmHg 35-45 PO2 ARTERIAL (BEAKER) (test ryzd=259) 64 mmHg 80-90 O2 SATURATION ARTERIAL (BEAKER) (test josa=008) 92.0 % 96.0-97.0 HCO3 ARTERIAL (BEAKER) (test amqy=037) 31 mmol/L 21-29 BASE EXCESS ARTERIAL (BEAKER) (test meun=711) 6.7 mmol/L -2.0-3.0 PATIENT TEMPERATURE (BEAKER) (test hezx=3962) 38.1 C FIO2 (BEAKER) (test sles=5026) 80.0 % POTASSIUM-STAT [id number] 20:39:00 Test Item Value Reference Range Comments POTASSIUM (BEAKER) (test qzhy=300) 3.4 meq/L 3.6-5.5 [id number] 20:16:00 Test Item Value Reference Range Comments FERRITIN (BEAKER) (test eucv=205) 651 ng/mL 5-275 POCT-GLUCOSE [id number] 20:10:00 Test Item Value Reference Range Comments POC-GLUCOSE METER (BEAKER) 180 mg/dL 70-110 TESTED AT [address] (test quej=7375) [place] [id number] POCT-GLUCOSE [id number] 20:10:00 Test Item Value Reference Range Comments POC-GLUCOSE METER (BEAKER) 197 mg/dL 70-110 TESTED AT [address] (test vpkc=3885) [facility] [address] [id number] 19:54:00 Test Item Value Reference Range Comments PARTIAL THROMBOPLASTIN TIME (BEAKER) (test 62.4 seconds 22.5-36.0 zdzf=662) [id number] 19:53:00 Test Item Value Reference Range Comments MAGNESIUM (BEAKER) (test nalm=894) 2.2 mg/dL 1.6-2.6 HEPATITIS A ANTIBODY, [id number] 19:25:00 Test Item Value Reference Range Comments HEPATITIS A IGG ANTIBODY (BEAKER) (test aqps=4001) Reactive Nonreactive GLUCOSE-STAT [id number] 19:24:00 Test Item Value Reference Range Comments GLUCOSE RANDOM (BEAKER) (test vcbc=756) 174 mg/dL 70-110 HGB/HCT (H&H) - STAT [id number] 19:24:00 Test Item Value Reference Range Comments HEMOGLOBIN (BEAKER) (test pfqx=689) 10.1 g/dL 12.0-15.0 HEMATOCRIT (BEAKER) (test qqad=708) 30.0 % 36.0-45.0 POTASSIUM-STAT [id number] 19:24:00 Test Item Value Reference Range Comments POTASSIUM (BEAKER) (test iqgf=441) 3.4 meq/L 3.6-5.5 HEPATITIS B CORE ANTIBODY, [id number] 19:21:00 Test Item Value Reference Range Comments HEPATITIS B CORE TOTAL ANTIBODY (BEAKER) (test Nonreactive Nonreactive xtnz=370) HEPATITIS PANEL, [id number] 19:21:00 Test Item Value Reference Range Comments HEPATITIS A IGM ANTIBODY (BEAKER) (test Nonreactive Nonreactive fwip=329) HEPATITIS B CORE IGM ANTIBODY (BEAKER) (test Nonreactive Nonreactive gncb=700) HEPATITIS C ANTIBODY (BEAKER) (test kycl=778) Nonreactive Nonreactive HEPATITIS B SURFACE ANTIGEN (2) (BEAKER) (test Nonreactive Nonreactive vbql=4565) HIV-1 ANTIGEN WITH HIV-1/2 [id number] 19:21:00 Test Item Value Reference Range Comments HIV-1 ANTIGEN WITH HIV 1\T\2 ANTIBODY (2) Nonreactive Nonreactive (BEAKER) (test vyyb=6065) BASIC METABOLIC [id number] 18:05:00 Test Item Value Reference Range Comments SODIUM (BEAKER) (test 141 meq/L 136-145 bhmg=877) POTASSIUM (BEAKER) (test 4.0 meq/L 3.5-5.1 affg=804) CHLORIDE (BEAKER) (test 104 meq/L 98-107 pnsh=661) CO2 (BEAKER) (test 26 meq/L 22-29 zaqt=809) BLOOD UREA NITROGEN 41 mg/dL 7-21 (BEAKER) (test nsio=132) CREATININE (BEAKER) (test 2.07 mg/dL 0.57-1.25 xesb=526) GLUCOSE RANDOM (BEAKER) 242 mg/dL 70-105 (test iaup=380) CALCIUM (BEAKER) (test 8.9 mg/dL 8.4-10.2 oslv=125) EGFR (BEAKER) (test 29 mL/min/1.73 sq m ESTIMATED GFR IS NOT taql=9467) ACCURATE CREATININE CLEARANCE IN PREDICTING GLOMERULAR FILTRATION RATE. ESTIMATED GFR IS NOT APPLICABLE FOR DIALYSIS PATIENTS. Check Serum Potassium level 2 hours after oral potassium replacement completed or 30 min after intravenous potassium replacement.[id number] 18:02:00 Test Item Value Reference Range Comments POTASSIUM (BEAKER) (test hrze=418) 4.0 meq/L 3.5-5.1 Check Serum Potassium level 2 hours after oral potassium replacement completed or 30 min after intravenous potassium replacement.[id number] 18:02:00 Test Item Value Reference Range Comments MAGNESIUM (BEAKER) (test hitv=574) 2.2 mg/dL 1.6-2.6 Check Serum Potassium level 2 hours after oral potassium replacement completed or 30 min after intravenous potassium replacement.[id number] 18:02:00 Test Item Value Reference Range Comments PHOSPHORUS (BEAKER) (test osir=961) 2.1 mg/dL 2.3-4.7 Check Serum Potassium level 2 hours after oral potassium replacement completed or 30 min after intravenous potassium replacement.POCT-GLUCOSE [id number] 17:31:00 Test Item Value Reference Range Comments POC-GLUCOSE METER (BEAKER) 253 mg/dL 70-[address] [facility] [address] (test ewot=2845) [facility] [address] VITAMIN D, [id number] 17:31:00 Test Item Value Reference Range Comments VITAMIN D 25-OH (BEAKER) (test eyku=8499) 5.8 ng/mL 6.6-49.9 Effective 01/12/2017: Reference Range ChangeNew: 6.6-49.9 ng/mL Previous: 13.0 -47.8 ng/mLRecommended Vitamin D Target Range: 30.0-40.0 ng/mLPOCT-GLUCOSE [id number] 17:31:00 Test Item Value Reference Range Comments POC-GLUCOSE METER (BEAKER) 269 mg/dL 70-[address] [facility] [address] (test rmth=7571) [facility] [address] [id number] 17:09:00 Test Item Value Reference Range Comments TRANSFERRIN (BEAKER) (test ilob=765) 166 mg/dL 174-382 [id number] 17:09:00 Test Item Value Reference Range Comments PREALBUMIN (BEAKER) (test qpso=350) 14 mg/dL 14-45 IRON, [id number] 17:09:00 Test Item Value Reference Range Comments IRON (BEAKER) (test awqk=238) 57 ug/dL 40-160 TROPONIN [id number] 16:59:00 Test Item Value Reference Range Comments TROPONIN I (BEAKER) (test odvp=953) 45.70 ng/mL 0.00-0.03 Troponin I (TnI) levels [...] failure, acidosis, acute neurological disease, and persistent tachyarrhythmia.[id number] 16:49:00 Test Item Value Reference Range Comments CREATININE (BEAKER) (test 2.17 mg/dL 0.57-1.25 jvxn=451) EGFR (BEAKER) (test 27 mL/min/1.73 sq m ESTIMATED GFR IS NOT dvao=0193) ACCURATE CREATININE CLEARANCE IN PREDICTING GLOMERULAR FILTRATION RATE. ESTIMATED GFR IS NOT APPLICABLE FOR DIALYSIS PATIENTS. URIC [id number] 16:48:00 Test Item Value Reference Range Comments URIC ACID (BEAKER) (test ycav=491) 8.2 mg/dL 2.6-7.2 LIPID [id number] 16:48:00 Test Item Value Reference Range Comments TRIGLYCERIDES (BEAKER) (test xkis=186) 122 mg/dL CHOLESTEROL (BEAKER) (test gwon=824) 204 mg/dL HDL CHOLESTEROL (BEAKER) (test rmdg=649) 85 mg/dL LDL CHOLESTEROL CALCULATED (BEAKER) (test 95 mg/dL piyq=213) Triglyceride Reference Range: Low Risk <150 Borderline 150- 199 High Risk 200-499 Very High Risk >=500Cholesterol Reference Range: Low Risk <200 Borderline 200-239 High Risk > 240HDL Cholesterol Reference Range: Low Risk >=60 High Risk <40LDL Cholesterol Reference Range: Optimal <100 Near Optimal 100-129 Borderline 130-159 High 160-189 Very High >=[id number] 16:48:00 Test Item Value Reference Range Comments AMYLASE (BEAKER) (test mtmr=796) 228 U/L 25-125 GAMMA GLUTAMYL TRANSFERASE (GGT)2017-07-21 16:48:00 Test Item Value Reference Range Comments GAMMA GLUTAMYL TRANSFERASE (BEAKER) (test znsc=883) 52 U/L 9-64 RETICULOCYTE [id number] 16:39:00 Test Item Value Reference Range Comments RETICULOCYTE COUNT PCT (BEAKER) (test emsa=487) 3.8 % 0.5-1.7 TROPONIN [id number] 13:49:00 Test Item Value Reference Range Comments TROPONIN I (BEAKER) (test pqha=316) 43.19 ng/mL 0.00-0.03 Troponin I (TnI) levels [...] acute neurological disease, and persistent tachyarrhythmia.BASIC METABOLIC [id number] 12:22:00 Test Item Value Reference Range Comments SODIUM (BEAKER) (test 141 meq/L 136-145 apqg=803) POTASSIUM (BEAKER) (test 3.9 meq/L 3.5-5.1 pluo=354) CHLORIDE (BEAKER) (test 102 meq/L 98-107 myba=823) CO2 (BEAKER) (test 28 meq/L 22-29 joym=615) BLOOD UREA NITROGEN 40 mg/dL 7-21 (BEAKER) (test hwrx=308) CREATININE (BEAKER) (test 2.20 mg/dL 0.57-1.25 deqy=228) GLUCOSE RANDOM (BEAKER) 238 mg/dL 70-105 (test yokj=179) CALCIUM (BEAKER) (test 8.9 mg/dL 8.4-10.2 htri=468) EGFR (BEAKER) (test 27 mL/min/1.73 sq m ESTIMATED GFR IS NOT gjuq=3268) ACCURATE CREATININE CLEARANCE IN PREDICTING GLOMERULAR FILTRATION RATE. ESTIMATED GFR IS NOT APPLICABLE FOR DIALYSIS PATIENTS. [id number] 12:17:00 Test Item Value Reference Range Comments POTASSIUM (BEAKER) (test imnb=075) 3.9 meq/L 3.5-5.1 [id number] 12:17:00 Test Item Value Reference Range Comments MAGNESIUM (BEAKER) (test wtcs=070) 2.4 mg/dL 1.6-2.6 [id number] 12:17:00 Test Item Value Reference Range Comments PHOSPHORUS (BEAKER) (test kkkr=162) 3.7 mg/dL 2.3-4.7 [id number] 12:17:00 Test Item Value Reference Range Comments GLUCOSE RANDOM (BEAKER) (test hmke=565) 238 mg/dL 70-105 [id number] 12:04:00 Test Item Value Reference Range Comments PARTIAL THROMBOPLASTIN TIME (BEAKER) (test 59.3 seconds 22.5-36.0 mpwh=339) SPUTUM CULTURE + GRAM [id number] 11:47:00 Test Item Value Reference Range Comments CULTURE (BEAKER) (test <1+ Normal respiratory pascual rhjr=2787) present GRAM STAIN RESULT (BEAKER) 1+ WBCs (test ltms=1482) GRAM STAIN RESULT (BEAKER) 0-5 epithelial cells (test lacl=33932) GRAM STAIN RESULT (BEAKER) No organisms seen (test tmsv=89913) HEMOGLOBIN AND [id number] 11:26:00 Test Item Value Reference Range Comments HEMOGLOBIN (BEAKER) (test mpli=151) 7.9 GM/DL 11.2-15.7 HEMATOCRIT (BEAKER) (test evcr=244) 26.5 % 34.1-44.9 BLOOD GAS, [id number] 10:43:00 Test Item Value Reference Range Comments PH ARTERIAL (BEAKER) (test lose=427) 7.42 7.35-7.45 PCO2 ARTERIAL (BEAKER) (test ohkn=878) 44 mmHg 35-45 PO2 ARTERIAL (BEAKER) (test kqhr=609) 51 mmHg 80-90 O2 SATURATION ARTERIAL (BEAKER) (test emsk=618) 88.2 % 96.0-97.0 HCO3 ARTERIAL (BEAKER) (test jhmi=894) 28 mmol/L 21-29 BASE EXCESS ARTERIAL (BEAKER) (test clai=572) 3.2 mmol/L -2.0-3.0 PATIENT TEMPERATURE (BEAKER) (test cfgj=8875) 36.0 C FIO2 (BEAKER) (test movk=6806) 80.0 % URINE [id number] 09:44:00 Test Item Value Reference Range Comments CULTURE (BEAKER) (test udvl=1982) No growth BASIC METABOLIC [id number] 06:28:00 Test Item Value Reference Range Comments SODIUM (BEAKER) (test 141 meq/L 136-145 bknq=092) POTASSIUM (BEAKER) (test 4.1 meq/L 3.5-5.1 bqzm=970) CHLORIDE (BEAKER) (test 101 meq/L 98-107 mbfl=041) CO2 (BEAKER) (test 29 meq/L 22-29 lwvs=225) BLOOD UREA NITROGEN 40 mg/dL 7-21 (BEAKER) (test fbsn=440) CREATININE (BEAKER) (test 2.46 mg/dL 0.57-1.25 igfr=078) GLUCOSE RANDOM (BEAKER) 236 mg/dL 70-105 (test hshy=707) CALCIUM (BEAKER) (test 8.6 mg/dL 8.4-10.2 biqd=573) EGFR (BEAKER) (test 24 mL/min/1.73 sq m ESTIMATED GFR IS NOT klzq=7734) ACCURATE CREATININE CLEARANCE IN PREDICTING GLOMERULAR FILTRATION RATE. ESTIMATED GFR IS NOT APPLICABLE FOR DIALYSIS PATIENTS. [id number] 06:26:00 Test Item Value Reference Range Comments PHOSPHORUS (BEAKER) (test koyw=963) 4.6 mg/dL 2.3-4.7 POCT-GLUCOSE [id number] 06:05:00 Test Item Value Reference Range Comments POC-GLUCOSE METER (BEAKER) 278 mg/dL 70-110 TESTED AT [address] (test mrvb=3097) [facility] [address] POCT-GLUCOSE [id number] 06:05:00 Test Item Value Reference Range Comments POC-GLUCOSE METER (BEAKER) 231 mg/dL 70-110 TESTED AT [address] (test abhe=4163) [place] [id number] POCT-GLUCOSE [id number] 06:05:00 Test Item Value Reference Range Comments POC-GLUCOSE METER (BEAKER) 190 mg/dL 70-110 TESTED AT [address] (test wamb=1964) [place] [address] [id number] 05:56:00 Test Item Value Reference Range Comments PARTIAL THROMBOPLASTIN TIME (BEAKER) (test 72.5 seconds 22.5-36.0 skud=583) RAD, CHEST, 1 VIEW, NON [id number] 04:38:00Reason for exam:->respiratory insufficiencyFINAL REPORT CLINICAL INDICATION: Respiratory insufficiency Comparison: 07/20/2017 The cardiomediastinal contours are stable. Central pulmonary vascular prominence and bilateral parenchymal opacities are similar within variation of acquisition technique. There is no pneumothorax. A femoral Impella device is stable in position. Signed: Adelso Sorensen MDReport Verified Date/Time:07/21/2017 04:38:32 Reading Location: [address] Reading Room BASIC METABOLIC [id number] 04:06:00 Test Item Value Reference Range Comments SODIUM (BEAKER) (test 142 meq/L 136-145 zgzi=752) POTASSIUM (BEAKER) (test 3.9 meq/L 3.5-5.1 tfdn=522) CHLORIDE (BEAKER) (test 102 meq/L 98-107 nbds=006) CO2 (BEAKER) (test 31 meq/L 22-29 bwxg=400) BLOOD UREA NITROGEN 40 mg/dL 7-21 (BEAKER) (test czxf=069) CREATININE (BEAKER) (test 2.37 mg/dL 0.57-1.25 ohya=593) GLUCOSE RANDOM (BEAKER) 206 mg/dL 70-105 (test nznm=453) CALCIUM (BEAKER) (test 8.5 mg/dL 8.4-10.2 whjd=844) EGFR (BEAKER) (test 25 mL/min/1.73 sq m ESTIMATED GFR IS NOT ytam=9776) ACCURATE CREATININE CLEARANCE IN PREDICTING GLOMERULAR FILTRATION RATE. ESTIMATED GFR IS NOT APPLICABLE FOR DIALYSIS PATIENTS. BLOOD GAS, [id number] 03:53:00 Test Item Value Reference Range Comments PH ARTERIAL (BEAKER) (test grrv=326) 7.36 7.35-7.45 PCO2 ARTERIAL (BEAKER) (test mcie=028) 55 mmHg 35-45 PO2 ARTERIAL (BEAKER) (test ionw=062) 94 mmHg 80-90 O2 SATURATION ARTERIAL (BEAKER) (test dfem=390) 96.0 % 96.0-97.0 HCO3 ARTERIAL (BEAKER) (test wnau=202) 30 mmol/L 21-29 BASE EXCESS ARTERIAL (BEAKER) (test znev=093) 4.2 mmol/L -2.0-3.0 PATIENT TEMPERATURE (BEAKER) (test raqn=2451) 38.8 C FIO2 (BEAKER) (test vcmq=1271) 80.0 % CALCIUM, [id number] 03:51:00 Test Item Value Reference Range Comments CALCIUM IONIZED (BEAKER) (test mvse=519) 1.07 mmol/L 1.12-1.27 PH, BLOOD (BEAKER) (test zdjv=2246) 7.35 OXYGEN SATURATION, [id number] 03:50:00 Test Item Value Reference Range Comments O2 SATURATION (MEASURED) (BEAKER) (test tiof=5820) 72.6 % [id number] 03:47:00 Test Item Value Reference Range Comments PHOSPHORUS (BEAKER) (test hidx=255) 4.5 mg/dL 2.3-4.7 [id number] 03:47:00 Test Item Value Reference Range Comments MAGNESIUM (BEAKER) (test kyia=985) 2.1 mg/dL 1.6-2.6 HEPATIC FUNCTION [id number] 03:47:00 Test Item Value Reference Range Comments TOTAL PROTEIN (BEAKER) (test sixw=049) 6.1 gm/dL 6.0-8.3 ALBUMIN (BEAKER) (test zzlp=8276) 3.1 g/dL 3.5-5.0 BILIRUBIN TOTAL (BEAKER) (test pvsk=160) 1.4 mg/dL 0.2-1.2 BILIRUBIN DIRECT (BEAKER) (test zhgm=527) 0.6 mg/dL 0.1-0.5 ALKALINE PHOSPHATASE (BEAKER) (test wrji=012) 45 U/L 40-150 AST (SGOT) (BEAKER) (test zlpe=722) 94 U/L 5-34 ALT (SGPT) (BEAKER) (test ssuf=416) 48 U/L 6-55 LACTATE DEHYDROGENASE (LDH)2017-07-21 03:47:00 Test Item Value Reference Range Comments LACTATE DEHYDROGENASE (BEAKER) (test feih=691) 1470 U/L 125-220 CBC W/PLT COUNT & AUTO [id number] 03:41:00 Test Item Value Reference Range Comments WHITE BLOOD CELL COUNT (BEAKER) (test czew=439) 14.1 K/ L 3.5-10.5 RED BLOOD CELL COUNT (BEAKER) (test afqs=334) 2.81 M/ L 3.93-5.22 HEMOGLOBIN (BEAKER) (test izwz=623) 8.6 GM/DL 11.2-15.7 HEMATOCRIT (BEAKER) (test nxpo=161) 28.2 % 34.1-44.9 MEAN CORPUSCULAR VOLUME (BEAKER) (test azvh=883) 100.4 fL 79.4-94.8 MEAN CORPUSCULAR HEMOGLOBIN (BEAKER) (test 30.6 pg 25.6-32.2 kptd=803) MEAN CORPUSCULAR HEMOGLOBIN CONC (BEAKER) (test 30.5 GM/DL 32.2-35.5 epcn=764) RED CELL DISTRIBUTION WIDTH (BEAKER) (test 13.1 % 11.7-14.4 zbvc=678) PLATELET COUNT (BEAKER) (test fkpc=894) 140 K/CU MM 150-450 MEAN PLATELET VOLUME (BEAKER) (test uoej=203) 11.1 fL 9.4-12.3 NUCLEATED RED BLOOD CELLS (BEAKER) (test 0 /100 WBC 0-0 khuq=571) NEUTROPHILS RELATIVE PERCENT (BEAKER) (test 86 % wixv=958) LYMPHOCYTES RELATIVE PERCENT (BEAKER) (test 6 % kikx=843) MONOCYTES RELATIVE PERCENT (BEAKER) (test 8 % qlku=940) EOSINOPHILS RELATIVE PERCENT (BEAKER) (test 0 % gups=280) BASOPHILS RELATIVE PERCENT (BEAKER) (test 0 % svjt=150) NEUTROPHILS ABSOLUTE COUNT (BEAKER) (test 12.13 K/ L 1.56-6.13 pwql=615) LYMPHOCYTES ABSOLUTE COUNT (BEAKER) (test 0.81 K/ L 1.18-3.74 kbav=947) MONOCYTES ABSOLUTE COUNT (BEAKER) (test 1.07 K/ L 0.24-0.36 oems=988) EOSINOPHILS ABSOLUTE COUNT (BEAKER) (test 0.00 K/ L 0.04-0.36 jgvy=339) BASOPHILS ABSOLUTE COUNT (BEAKER) (test 0.02 K/ L 0.01-0.08 pcuk=846) IMMATURE GRANULOCYTES-RELATIVE PERCENT (BEAKER) 1 % 0-1 (test brqd=3607) LACTIC ACID, ARTERIAL, WHOLE [id number] 03:39:00 Test Item Value Reference Range Comments LACTATE BLOOD ARTERIAL (2) (BEAKER) (test 0.9 mmol/L 0.5-2.2 qxvx=4095) Effective 08/06/2015: Units/Reference Range ChangeNew: 0.5-2.2 mmol/L Previous: 5 -20 mg/dLTROPONIN [id number] 00:12:00 Test Item Value Reference Range Comments TROPONIN I (BEAKER) (test thkr=865) 60.74 ng/mL 0.00-0.03 Troponin I (TnI) levels [...] failure, acidosis, acute neurological disease, and persistent tachyarrhythmia.[id number] 23:42:00 Test Item Value Reference Range Comments PHOSPHORUS (BEAKER) (test amgv=478) 4.9 mg/dL 2.3-4.7 BASIC METABOLIC [id number] 23:42:00 Test Item Value Reference Range Comments SODIUM (BEAKER) (test 141 meq/L 136-145 vheq=043) POTASSIUM (BEAKER) (test 4.2 meq/L 3.5-5.1 onsn=827) CHLORIDE (BEAKER) (test 102 meq/L 98-107 pbsm=490) CO2 (BEAKER) (test 29 meq/L 22-29 iewb=701) BLOOD UREA NITROGEN 40 mg/dL 7-21 (BEAKER) (test zwjp=846) CREATININE (BEAKER) (test 2.36 mg/dL 0.57-1.25 iohc=303) GLUCOSE RANDOM (BEAKER) 200 mg/dL 70-105 (test iwub=751) CALCIUM (BEAKER) (test 8.4 mg/dL 8.4-10.2 flmr=762) EGFR (BEAKER) (test 25 mL/min/1.73 sq m ESTIMATED GFR IS NOT wbvz=5644) ACCURATE CREATININE CLEARANCE IN PREDICTING GLOMERULAR FILTRATION RATE. ESTIMATED GFR IS NOT APPLICABLE FOR DIALYSIS PATIENTS. [id number] 23:39:00 Test Item Value Reference Range Comments PARTIAL THROMBOPLASTIN TIME (BEAKER) (test 78.1 seconds 22.5-36.0 vsca=805) POCT-GLUCOSE [id number] 23:28:00 Test Item Value Reference Range Comments POC-GLUCOSE METER (BEAKER) 250 mg/dL 70-[address] [facility] [address] (test ojmm=0936) [facility] [address] POCT-GLUCOSE [id number] 22:19:00 Test Item Value Reference Range Comments POC-GLUCOSE METER (BEAKER) 202 mg/dL 70-[address] [facility] [address] (test fyad=0340) [facility] [address] HEPATIC FUNCTION [id number] 21:45:00 Test Item Value Reference Range Comments TOTAL PROTEIN (BEAKER) (test zvxv=242) 5.9 gm/dL 6.0-8.3 ALBUMIN (BEAKER) (test obio=1393) 3.1 g/dL 3.5-5.0 BILIRUBIN TOTAL (BEAKER) (test vpuy=980) 1.0 mg/dL 0.2-1.2 BILIRUBIN DIRECT (BEAKER) (test cdop=913) 0.5 mg/dL 0.1-0.5 ALKALINE PHOSPHATASE (BEAKER) (test zjzn=915) 46 U/L 40-150 AST (SGOT) (BEAKER) (test ehuo=619) 95 U/L 5-34 ALT (SGPT) (BEAKER) (test hoes=825) 47 U/L 6-55 BASIC METABOLIC [id number] 21:45:00 Test Item Value Reference Range Comments SODIUM (BEAKER) (test 141 meq/L 136-145 ione=051) POTASSIUM (BEAKER) (test 4.0 meq/L 3.5-5.1 fcgc=358) CHLORIDE (BEAKER) (test 103 meq/L 98-107 bnju=246) CO2 (BEAKER) (test 27 meq/L 22-29 dxih=086) BLOOD UREA NITROGEN 40 mg/dL 7-21 (BEAKER) (test jmtb=803) CREATININE (BEAKER) (test 2.30 mg/dL 0.57-1.25 tkby=954) GLUCOSE RANDOM (BEAKER) 192 mg/dL 70-105 (test mgnx=480) CALCIUM (BEAKER) (test 8.4 mg/dL 8.4-10.2 hjjf=240) EGFR (BEAKER) (test 25 mL/min/1.73 sq m ESTIMATED GFR IS NOT gxdk=0861) ACCURATE CREATININE CLEARANCE IN PREDICTING GLOMERULAR FILTRATION RATE. ESTIMATED GFR IS NOT APPLICABLE FOR DIALYSIS PATIENTS. [id number] 21:38:00 Test Item Value Reference Range Comments MAGNESIUM (BEAKER) (test arlm=445) 2.1 mg/dL 1.6-2.6 LACTIC ACID, ARTERIAL, WHOLE [id number] 21:32:00 Test Item Value Reference Range Comments LACTATE BLOOD ARTERIAL (2) (BEAKER) (test 0.6 mmol/L 0.5-2.2 phdv=1982) Effective 08/06/2015: Units/Reference Range ChangeNew: 0.5-2.2 mmol/L Previous: 5 -20 mg/dLPOCT-GLUCOSE [id number] 21:21:00 Test Item Value Reference Range Comments POC-GLUCOSE METER (BEAKER) 198 mg/dL 70-110 TESTED AT [address] (test ejmx=1229) [facility] [address] POCT-GLUCOSE [id number] 21:21:00 Test Item Value Reference Range Comments POC-GLUCOSE METER (BEAKER) 155 mg/dL 70-110 TESTED AT [address] (test nxpr=9615) [facility] [address] POCT-GLUCOSE [id number] 21:21:00 Test Item Value Reference Range Comments POC-GLUCOSE METER (BEAKER) 67 mg/dL 70-110 TESTED AT [address] (test txwm=2102) [place] [id number] BLOOD GAS, [id number] 21:16:00 Test Item Value Reference Range Comments PH ARTERIAL (BEAKER) (test dlzp=532) 7.34 7.35-7.45 PCO2 ARTERIAL (BEAKER) (test jkvq=458) 56 mmHg 35-45 PO2 ARTERIAL (BEAKER) (test ytkc=495) 107 mmHg 80-90 O2 SATURATION ARTERIAL (BEAKER) (test fapi=227) 97.3 % 96.0-97.0 HCO3 ARTERIAL (BEAKER) (test txrd=146) 29 mmol/L 21-29 BASE EXCESS ARTERIAL (BEAKER) (test wwuy=685) 2.7 mmol/L -2.0-3.0 PATIENT TEMPERATURE (BEAKER) (test omzs=1419) 37.8 C FIO2 (BEAKER) (test szsb=6648) 100.0 % GLUCOSE-STAT [id number] 21:16:00 Test Item Value Reference Range Comments GLUCOSE RANDOM (BEAKER) (test qynp=221) 188 mg/dL 70-110 HGB/HCT (H&H) - STAT [id number] 21:16:00 Test Item Value Reference Range Comments HEMOGLOBIN (BEAKER) (test yeny=337) 9.9 g/dL 12.0-15.0 HEMATOCRIT (BEAKER) (test sglq=613) 29.0 % 36.0-45.0 SODIUM NA-STAT [id number] 21:15:00 Test Item Value Reference Range Comments SODIUM (BEAKER) (test rgcg=790) 140 meq/L 135-148 POTASSIUM-STAT [id number] 21:15:00 Test Item Value Reference Range Comments POTASSIUM (BEAKER) (test jfql=662) 3.9 meq/L 3.6-5.5 BLOOD GAS, [id number] 19:44:00 Test Item Value Reference Range Comments PH ARTERIAL (BEAKER) (test aiim=450) 7.34 7.35-7.45 PCO2 ARTERIAL (BEAKER) (test whew=878) 31 mmHg 35-45 PO2 ARTERIAL (BEAKER) (test iraz=968) 68 mmHg 80-90 O2 SATURATION ARTERIAL (BEAKER) (test cfsg=821) 92.1 % 96.0-97.0 HCO3 ARTERIAL (BEAKER) (test tcmd=693) 16 mmol/L 21-29 BASE EXCESS ARTERIAL (BEAKER) (test dhfh=398) -8.7 mmol/L -2.0-3.0 PATIENT TEMPERATURE (BEAKER) (test ktkg=5321) 37.7 C FIO2 (BEAKER) (test uvxp=5763) 50.0 % POCT-GLUCOSE [id number] 18:30:00 Test Item Value Reference Range Comments POC-GLUCOSE METER (BEAKER) 90 mg/dL 70-110 TESTED AT [address] (test wura=1741) [facility] [address] TROPONIN [id number] 18:05:00 Test Item Value Reference Range Comments TROPONIN I (BEAKER) (test cbzf=837) 76.69 ng/mL 0.00-0.03 Troponin I (TnI) levels [...] acute neurological disease, and persistent tachyarrhythmia.BASIC METABOLIC [id number] 17:56:00 Test Item Value Reference Range Comments SODIUM (BEAKER) (test 143 meq/L 136-145 utan=689) POTASSIUM (BEAKER) (test 3.8 meq/L 3.5-5.1 onzk=917) CHLORIDE (BEAKER) (test 104 meq/L 98-107 pvtz=777) CO2 (BEAKER) (test 29 meq/L 22-29 vned=385) BLOOD UREA NITROGEN 37 mg/dL 7-21 (BEAKER) (test vmtf=942) CREATININE (BEAKER) (test 2.45 mg/dL 0.57-1.25 ljnd=688) GLUCOSE RANDOM (BEAKER) 107 mg/dL 70-105 (test tcpg=295) CALCIUM (BEAKER) (test 8.6 mg/dL 8.4-10.2 kvmh=142) EGFR (BEAKER) (test 24 mL/min/1.73 sq m ESTIMATED GFR IS NOT jlet=1785) ACCURATE CREATININE CLEARANCE IN PREDICTING GLOMERULAR FILTRATION RATE. ESTIMATED GFR IS NOT APPLICABLE FOR DIALYSIS PATIENTS. [id number] 17:43:00 Test Item Value Reference Range Comments PHOSPHORUS (BEAKER) (test nzsa=197) 4.8 mg/dL 2.3-4.7 [id number] 17:43:00 Test Item Value Reference Range Comments MAGNESIUM (BEAKER) (test ckno=442) 2.4 mg/dL 1.6-2.6 [id number] 17:34:00 Test Item Value Reference Range Comments PARTIAL THROMBOPLASTIN TIME (BEAKER) (test 101.4 seconds 22.5-36.0 fxsr=784) BLOOD GAS, [id number] 17:23:00 Test Item Value Reference Range Comments PH ARTERIAL (BEAKER) (test uqae=110) 7.36 7.35-7.45 PCO2 ARTERIAL (BEAKER) (test ipsa=654) 60 mmHg 35-45 PO2 ARTERIAL (BEAKER) (test zzlo=529) 82 mmHg 80-90 O2 SATURATION ARTERIAL (BEAKER) (test hguu=252) 95.1 % 96.0-97.0 HCO3 ARTERIAL (BEAKER) (test qqqc=296) 33 mmol/L 21-29 BASE EXCESS ARTERIAL (BEAKER) (test rwbx=644) 6.0 mmol/L -2.0-3.0 PATIENT TEMPERATURE (BEAKER) (test lwho=8835) 37.4 C FIO2 (BEAKER) (test rize=6835) 70.0 % GLUCOSE-STAT [id number] 17:20:00 Test Item Value Reference Range Comments GLUCOSE RANDOM (BEAKER) (test kixt=690) 106 mg/dL 70-110 POCT-GLUCOSE [id number] 16:32:00 Test Item Value Reference Range Comments POC-GLUCOSE METER (BEAKER) 115 mg/dL 70-110 TESTED AT [address] (test ppmr=6345) [place] [address] VANCOMYCIN LEVEL, [id number] 16:10:00 Test Item Value Reference Range Comments VANCOMYCIN TROUGH (BEAKER) (test zsnl=603) 17.0 ug/mL 10.0-20.0 POCT-GLUCOSE [id number] 15:32:00 Test Item Value Reference Range Comments POC-GLUCOSE METER (BEAKER) 119 mg/dL 70-110 TESTED AT [address] (test ldzz=3872) [place] [address] TROPONIN [id number] 13:14:00 Test Item Value Reference Range Comments TROPONIN I (BEAKER) (test srar=138) 81.57 ng/mL 0.00-0.03 Troponin I (TnI) levels [...] acute neurological disease, and persistent tachyarrhythmia.BASIC METABOLIC [id number] 12:49:00 Test Item Value Reference Range Comments SODIUM (BEAKER) (test 140 meq/L 136-145 cltr=086) POTASSIUM (BEAKER) (test 3.6 meq/L 3.5-5.1 Specimen slightly wahm=247) hemolyzed CHLORIDE (BEAKER) (test 104 meq/L 98-107 wcwa=141) CO2 (BEAKER) (test 27 meq/L 22-29 fjns=938) BLOOD UREA NITROGEN 37 mg/dL 7-21 (BEAKER) (test xqjp=452) CREATININE (BEAKER) (test 2.35 mg/dL 0.57-1.25 Specimen slightly iqfo=518) hemolyzed GLUCOSE RANDOM (BEAKER) 192 mg/dL 70-105 (test laid=379) CALCIUM (BEAKER) (test 8.1 mg/dL 8.4-10.2 pono=242) EGFR (BEAKER) (test 25 mL/min/1.73 sq m ESTIMATED GFR IS NOT uvys=9446) ACCURATE CREATININE CLEARANCE IN PREDICTING GLOMERULAR FILTRATION RATE. ESTIMATED GFR IS NOT APPLICABLE FOR DIALYSIS PATIENTS. [id number] 12:46:00 Test Item Value Reference Range Comments MAGNESIUM (BEAKER) (test 2.2 mg/dL 1.6-2.6 Specimen slightly hemolyzed romd=666) [id number] 12:46:00 Test Item Value Reference Range Comments PHOSPHORUS (BEAKER) (test 4.6 mg/dL 2.3-4.7 Specimen slightly hemolyzed dqbj=298) POCT-GLUCOSE [id number] 12:16:00 Test Item Value Reference Range Comments POC-GLUCOSE METER (BEAKER) 210 mg/dL 70-110 TESTED AT [address] (test fleu=3800) [place] [id number] POCT-GLUCOSE [id number] 12:16:00 Test Item Value Reference Range Comments POC-GLUCOSE METER (BEAKER) 247 mg/dL 70-110 TESTED AT [address] (test zxzj=5620) [place] [id number] POCT-GLUCOSE [id number] 12:16:00 Test Item Value Reference Range Comments POC-GLUCOSE METER (BEAKER) 174 mg/dL 70-110 TESTED AT [address] (test trmr=1503) [facility] [address] BLOOD GAS, [id number] 12:14:00 Test Item Value Reference Range Comments PH ARTERIAL (BEAKER) (test xwzm=116) 7.36 7.35-7.45 PCO2 ARTERIAL (BEAKER) (test revk=676) 56 mmHg 35-45 PO2 ARTERIAL (BEAKER) (test rtns=336) 65 mmHg 80-90 O2 SATURATION ARTERIAL (BEAKER) (test xwxj=574) 90.4 % 96.0-97.0 HCO3 ARTERIAL (BEAKER) (test vuqs=381) 31 mmol/L 21-29 BASE EXCESS ARTERIAL (BEAKER) (test qbum=468) 4.8 mmol/L -2.0-3.0 PATIENT TEMPERATURE (BEAKER) (test mvod=4097) 38.0 C FIO2 (BEAKER) (test ljqz=8243) 60.0 % [id number] 10:58:00 Test Item Value Reference Range Comments PARTIAL THROMBOPLASTIN TIME (BEAKER) (test 99.0 seconds 22.5-36.0 gyyd=879) RAD, CHEST, 1 VIEW, NON [id number] 08:30:00Reason for exam:->r/o pleural effusionShould this be [...] unchanged. No pneumothorax is seen. Signed: [facility] Verified Date/Time: 07/20/2017 08:30:52 Reading Location: [facility] Radiology ReadingRoom BLOOD GAS, [id number] 06 :37:00 Test Item Value Reference Range Comments PH ARTERIAL (BEAKER) (test rifi=994) 7.38 7.35-7.45 PCO2 ARTERIAL (BEAKER) (test ggfo=593) 50 mmHg 35-45 PO2 ARTERIAL (BEAKER) (test yqye=467) 97 mmHg 80-90 O2 SATURATION ARTERIAL (BEAKER) (test ztsu=508) 96.9 % 96.0-97.0 HCO3 ARTERIAL (BEAKER) (test smyw=842) 28 mmol/L 21-29 BASE EXCESS ARTERIAL (BEAKER) (test bmco=537) 2.7 mmol/L -2.0-3.0 PATIENT TEMPERATURE (BEAKER) (test mskm=2410) 37.8 C FIO2 (BEAKER) (test jdxh=1348) 40.0 % POCT-GLUCOSE [id number] 06:15:00 Test Item Value Reference Range Comments POC-GLUCOSE METER (BEAKER) 114 mg/dL 70-110 TESTED AT [address] (test jvzt=4219) [facility] [address] POCT-GLUCOSE [id number] 06:15:00 Test Item Value Reference Range Comments POC-GLUCOSE METER (BEAKER) 140 mg/dL 70-110 TESTED AT [address] (test axld=8148) [facility] [address] POCT-GLUCOSE [id number] 05:23:00 Test Item Value Reference Range Comments POC-GLUCOSE METER (BEAKER) 77 mg/dL 70-110 TESTED AT [address] (test gaxy=5074) [facility] [address] CALCIUM, [id number] 04:34:00 Test Item Value Reference Range Comments CALCIUM IONIZED (BEAKER) (test cdrn=891) 1.14 mmol/L 1.12-1.27 PH, BLOOD (BEAKER) (test lifp=2459) 7.34 BLOOD GAS, [id number] 04:32:00 Test Item Value Reference Range Comments PH ARTERIAL (BEAKER) (test chdy=091) 7.32 7.35-7.45 PCO2 ARTERIAL (BEAKER) (test pwfv=266) 60 mmHg 35-45 PO2 ARTERIAL (BEAKER) (test ucry=210) 92 mmHg 80-90 O2 SATURATION ARTERIAL (BEAKER) (test ezpb=339) 95.9 % 96.0-97.0 HCO3 ARTERIAL (BEAKER) (test odyu=809) 30 mmol/L 21-29 BASE EXCESS ARTERIAL (BEAKER) (test ffbn=251) 3.2 mmol/L -2.0-3.0 PATIENT TEMPERATURE (BEAKER) (test kkel=4244) 37.8 C FIO2 (BEAKER) (test vrwc=2359) 40.0 % COMPREHENSIVE METABOLIC [id number] 04:24:00 Test Item Value Reference Range Comments TOTAL PROTEIN (BEAKER) 6.5 gm/dL 6.0-8.3 (test asgw=091) ALBUMIN (BEAKER) (test 3.4 g/dL 3.5-5.0 witk=0528) ALKALINE PHOSPHATASE 47 U/L 40-150 (BEAKER) (test ncld=143) BILIRUBIN TOTAL (BEAKER) 0.8 mg/dL 0.2-1.2 (test mrbj=129) SODIUM (BEAKER) (test 142 meq/L 136-145 vzoz=617) POTASSIUM (BEAKER) (test 3.7 meq/L 3.5-5.1 wena=229) CHLORIDE (BEAKER) (test 103 meq/L 98-107 qbea=530) CO2 (BEAKER) (test 29 meq/L 22-29 ezyc=616) BLOOD UREA NITROGEN 34 mg/dL 7-21 (BEAKER) (test biaw=340) CREATININE (BEAKER) (test 2.44 mg/dL 0.57-1.25 gfoc=729) GLUCOSE RANDOM (BEAKER) 128 mg/dL 70-105 (test jptz=167) CALCIUM (BEAKER) (test 8.7 mg/dL 8.4-10.2 zhdq=821) AST (SGOT) (BEAKER) (test 158 U/L 5-34 xoem=571) ALT (SGPT) (BEAKER) (test 63 U/L 6-55 trjk=380) EGFR (BEAKER) (test 24 mL/min/1.73 sq m ESTIMATED GFR IS NOT rhzd=3438) ACCURATE CREATININE CLEARANCE IN PREDICTING GLOMERULAR FILTRATION RATE. ESTIMATED GFR IS NOT APPLICABLE FOR DIALYSIS PATIENTS. BASIC METABOLIC [id number] 04:24:00 Test Item Value Reference Range Comments SODIUM (BEAKER) (test 142 meq/L 136-145 skip=154) POTASSIUM (BEAKER) (test 3.7 meq/L 3.5-5.1 zicp=105) CHLORIDE (BEAKER) (test 103 meq/L 98-107 hweo=700) CO2 (BEAKER) (test 29 meq/L 22-29 jufj=953) BLOOD UREA NITROGEN 34 mg/dL 7-21 (BEAKER) (test ljpj=282) CREATININE (BEAKER) (test 2.44 mg/dL 0.57-1.25 clch=017) GLUCOSE RANDOM (BEAKER) 128 mg/dL 70-105 (test imoj=078) CALCIUM (BEAKER) (test 8.7 mg/dL 8.4-10.2 mycy=740) EGFR (BEAKER) (test 24 mL/min/1.73 sq m ESTIMATED GFR IS NOT gqqj=3751) ACCURATE CREATININE CLEARANCE IN PREDICTING GLOMERULAR FILTRATION RATE. ESTIMATED GFR IS NOT APPLICABLE FOR DIALYSIS PATIENTS. [id number] 04:22:00 Test Item Value Reference Range Comments PHOSPHORUS (BEAKER) (test zftc=188) 5.2 mg/dL 2.3-4.7 [id number] 04:22:00 Test Item Value Reference Range Comments MAGNESIUM (BEAKER) (test dgvj=369) 2.4 mg/dL 1.6-2.6 HEPATIC FUNCTION [id number] 04:22:00 Test Item Value Reference Range Comments TOTAL PROTEIN (BEAKER) (test ufod=298) 6.5 gm/dL 6.0-8.3 ALBUMIN (BEAKER) (test nblg=0241) 3.4 g/dL 3.5-5.0 BILIRUBIN TOTAL (BEAKER) (test zieu=874) 0.8 mg/dL 0.2-1.2 BILIRUBIN DIRECT (BEAKER) (test osbl=447) 0.4 mg/dL 0.1-0.5 ALKALINE PHOSPHATASE (BEAKER) (test rqxu=705) 47 U/L 40-150 AST (SGOT) (BEAKER) (test vqgd=867) 158 U/L 5-34 ALT (SGPT) (BEAKER) (test jvjo=095) 63 U/L 6-55 [id number] 04:12:00 Test Item Value Reference Range Comments PARTIAL THROMBOPLASTIN TIME (BEAKER) (test 36.8 seconds 22.5-36.0 nhdc=844) Prior to initiating heparinPOCT-GLUCOSE [id number] 04:05:00 Test Item Value Reference Range Comments POC-GLUCOSE METER (BEAKER) 134 mg/dL 70-110 TESTED AT [address] (test zord=7647) [facility] [address] POCT-GLUCOSE [id number] 04:05:00 Test Item Value Reference Range Comments POC-GLUCOSE METER (BEAKER) 122 mg/dL 70-110 TESTED AT [address] (test ljot=8196) [facility] [address] POCT-GLUCOSE [id number] 04:05:00 Test Item Value Reference Range Comments POC-GLUCOSE METER (BEAKER) 201 mg/dL 70-110 TESTED AT [address] (test buds=1750) [facility] [address] CBC W/PLT COUNT & AUTO [id number] 04:02:00 Test Item Value Reference Range Comments WHITE BLOOD CELL COUNT (BEAKER) (test onkd=517) 13.6 K/ L 3.5-10.5 RED BLOOD CELL COUNT (BEAKER) (test grqn=322) 3.18 M/ L 3.93-5.22 HEMOGLOBIN (BEAKER) (test ttvo=650) 9.7 GM/DL 11.2-15.7 HEMATOCRIT (BEAKER) (test sdnj=621) 31.0 % 34.1-44.9 MEAN CORPUSCULAR VOLUME (BEAKER) (test tlxx=047) 97.5 fL 79.4-94.8 MEAN CORPUSCULAR HEMOGLOBIN (BEAKER) (test 30.5 pg 25.6-32.2 astp=370) MEAN CORPUSCULAR HEMOGLOBIN CONC (BEAKER) (test 31.3 GM/DL 32.2-35.5 gngs=504) RED CELL DISTRIBUTION WIDTH (BEAKER) (test 13.3 % 11.7-14.4 jakb=485) PLATELET COUNT (BEAKER) (test wlzq=922) 167 K/CU MM 150-450 MEAN PLATELET VOLUME (BEAKER) (test lcvh=930) 11.0 fL 9.4-12.3 NUCLEATED RED BLOOD CELLS (BEAKER) (test 0 /100 WBC 0-0 jkqb=579) NEUTROPHILS RELATIVE PERCENT (BEAKER) (test 85 % vnem=655) LYMPHOCYTES RELATIVE PERCENT (BEAKER) (test 7 % llij=617) MONOCYTES RELATIVE PERCENT (BEAKER) (test 7 % pglc=968) EOSINOPHILS RELATIVE PERCENT (BEAKER) (test 0 % ljva=818) BASOPHILS RELATIVE PERCENT (BEAKER) (test 0 % edcc=404) NEUTROPHILS ABSOLUTE COUNT (BEAKER) (test 11.61 K/ L 1.56-6.13 yzlu=887) LYMPHOCYTES ABSOLUTE COUNT (BEAKER) (test 0.98 K/ L 1.18-3.74 pkqy=006) MONOCYTES ABSOLUTE COUNT (BEAKER) (test 0.92 K/ L 0.24-0.36 zikk=362) EOSINOPHILS ABSOLUTE COUNT (BEAKER) (test 0.00 K/ L 0.04-0.36 rsve=580) BASOPHILS ABSOLUTE COUNT (BEAKER) (test 0.02 K/ L 0.01-0.08 xwld=575) IMMATURE GRANULOCYTES-RELATIVE PERCENT (BEAKER) 1 % 0-1 (test cgan=3207) [id number] 02:01:00 Test Item Value Reference Range Comments PARTIAL THROMBOPLASTIN TIME (BEAKER) (test 32.5 seconds 22.5-36.0 owyu=783) BLOOD GAS, [id number] 01:09:00 Test Item Value Reference Range Comments PH ARTERIAL (BEAKER) (test fltx=082) 7.35 7.35-7.45 PCO2 ARTERIAL (BEAKER) (test rqgq=730) 50 mmHg 35-45 PO2 ARTERIAL (BEAKER) (test wdpq=971) 86 mmHg 80-90 O2 SATURATION ARTERIAL (BEAKER) (test lawi=163) 95.3 % 96.0-97.0 HCO3 ARTERIAL (BEAKER) (test tfzx=544) 27 mmol/L 21-29 BASE EXCESS ARTERIAL (BEAKER) (test gwre=559) 1.0 mmol/L -2.0-3.0 PATIENT TEMPERATURE (BEAKER) (test iysd=6100) 38.2 C FIO2 (BEAKER) (test imhv=1975) 40.0 % POCT-GLUCOSE [id number] 01:04:00 Test Item Value Reference Range Comments POC-GLUCOSE METER (BEAKER) 199 mg/dL 70-[address] [facility] [address] [facility] (test crbs=9089) [facility] [address] [id number] 00:14:00 Test Item Value Reference Range Comments MAGNESIUM (BEAKER) (test 2.3 mg/dL 1.6-2.6 Specimen slightly hemolyzed kqjw=374) [id number] 00:14:00 Test Item Value Reference Range Comments POTASSIUM (BEAKER) (test 3.8 meq/L 3.5-5.1 Specimen slightly hemolyzed inyx=234) CALCIUM, [id number] 00:11:00 Test Item Value Reference Range Comments CALCIUM IONIZED (BEAKER) (test ijgh=835) 1.06 mmol/L 1.12-1.27 PH, BLOOD (BEAKER) (test juyc=6251) 7.35 BLOOD GAS, [id number] 00:11:00 Test Item Value Reference Range Comments PH ARTERIAL (BEAKER) (test xvlv=156) 7.33 7.35-7.45 PCO2 ARTERIAL (BEAKER) (test ixue=123) 53 mmHg 35-45 PO2 ARTERIAL (BEAKER) (test wuvu=891) 58 mmHg 80-90 O2 SATURATION ARTERIAL (BEAKER) (test nwqu=851) 86.1 % 96.0-97.0 HCO3 ARTERIAL (BEAKER) (test vcwk=639) 27 mmol/L 21-29 BASE EXCESS ARTERIAL (BEAKER) (test vpkl=079) 0.9 mmol/L -2.0-3.0 PATIENT TEMPERATURE (BEAKER) (test lcgi=0410) 38.0 C FIO2 (BEAKER) (test ksfd=7754) 40.0 % Post extubation ABGPOCT-GLUCOSE [id number] 23:58:00 Test Item Value Reference Range Comments POC-GLUCOSE METER (BEAKER) 202 mg/dL 70-110 TESTED AT [address] (test tvtx=6554) [place] [address] POCT-GLUCOSE [id number] 23:58:00 Test Item Value Reference Range Comments POC-GLUCOSE METER (BEAKER) 86 mg/dL 70-110 TESTED AT [address] (test awlg=0140) [place] [address] BASIC METABOLIC [id number] 22:18:00 Test Item Value Reference Range Comments SODIUM (BEAKER) (test 141 meq/L 136-145 fxko=058) POTASSIUM (BEAKER) (test 3.6 meq/L 3.5-5.1 Specimen slightly fjyc=250) hemolyzed CHLORIDE (BEAKER) (test 105 meq/L 98-107 ceor=044) CO2 (BEAKER) (test 26 meq/L 22-29 nsgs=837) BLOOD UREA NITROGEN 31 mg/dL 7-21 (BEAKER) (test effi=506) CREATININE (BEAKER) (test 2.09 mg/dL 0.57-1.25 Specimen slightly xgld=271) hemolyzed GLUCOSE RANDOM (BEAKER) 81 mg/dL 70-105 (test rukr=972) CALCIUM (BEAKER) (test 8.3 mg/dL 8.4-10.2 tumj=514) EGFR (BEAKER) (test 28 mL/min/1.73 sq m ESTIMATED GFR IS NOT acjp=7425) ACCURATE CREATININE CLEARANCE IN PREDICTING GLOMERULAR FILTRATION RATE. ESTIMATED GFR IS NOT APPLICABLE FOR DIALYSIS PATIENTS. [id number] 22:17:00 Test Item Value Reference Range Comments PHOSPHORUS (BEAKER) (test 5.1 mg/dL 2.3-4.7 Specimen slightly hemolyzed cfgd=340) POCT-GLUCOSE [id number] 20:57:00 Test Item Value Reference Range Comments POC-GLUCOSE METER (BEAKER) 90 mg/dL 70-[address] [facility] [address] (test nwin=8386) [facility] [address] BLOOD GAS, [id number] 20:52:00 Test Item Value Reference Range Comments PH ARTERIAL (BEAKER) (test bsud=029) 7.35 7.35-7.45 PCO2 ARTERIAL (BEAKER) (test thsi=655) 49 mmHg 35-45 PO2 ARTERIAL (BEAKER) (test izvw=620) 100 mmHg 80-90 O2 SATURATION ARTERIAL (BEAKER) (test nurd=550) 97.0 % 96.0-97.0 HCO3 ARTERIAL (BEAKER) (test espx=664) 26 mmol/L 21-29 BASE EXCESS ARTERIAL (BEAKER) (test wbos=808) 0.3 mmol/L -2.0-3.0 PATIENT TEMPERATURE (BEAKER) (test xsvp=4406) 37.7 C FIO2 (BEAKER) (test yspz=5719) 40.0 % [id number] 18:57:00 Test Item Value Reference Range Comments PARTIAL THROMBOPLASTIN TIME (BEAKER) (test 70.7 seconds 22.5-36.0 gdxo=055) BLOOD GAS, [id number] 16:52:00 Test Item Value Reference Range Comments PH ARTERIAL (BEAKER) (test rxoh=908) 7.37 7.35-7.45 PCO2 ARTERIAL (BEAKER) (test czcy=459) 47 mmHg 35-45 PO2 ARTERIAL (BEAKER) (test hfls=871) 117 mmHg 80-90 O2 SATURATION ARTERIAL (BEAKER) (test hakv=871) 98.0 % 96.0-97.0 HCO3 ARTERIAL (BEAKER) (test xmbi=635) 26 mmol/L 21-29 BASE EXCESS ARTERIAL (BEAKER) (test plmu=912) 0.5 mmol/L -2.0-3.0 PATIENT TEMPERATURE (BEAKER) (test nrli=4200) 37.7 C FIO2 (BEAKER) (test fxas=7776) 60.0 % GLUCOSE-STAT [id number] 16:52:00 Test Item Value Reference Range Comments GLUCOSE RANDOM (BEAKER) (test caqe=003) 149 mg/dL 70-110 [id number] 16:22:00 Test Item Value Reference Range Comments PARTIAL THROMBOPLASTIN TIME (BEAKER) (test 197.7 seconds 22.5-36.0 ykfi=821) PROTHROMBIN [id number] 16:15:00 Test Item Value Reference Range Comments PROTIME (BEAKER) (test dqnc=679) 16.4 seconds 11.7-14.7 INR (BEAKER) (test ojph=028) 1.3 <=5.9 RECOMMENDED COUMADIN/WARFARIN INR THERAPY RANGESSTANDARD DOSE: 2.0 - 3.0 Includes: PROPHYLAXIS forvenous thrombosis, systemic embolization; TREATMENT for venous thrombosis and/or pulmonary embolus.HIGH RISK: Target INR is 2.5-3.5 for patients with mechanical heart valves.[id number] 16:15:00 Test Item Value Reference Range Comments FIBRINOGEN LEVEL (BEAKER) (test fjji=188) 303 mg/dl 225-434 [id number] 16:15:00 Test Item Value Reference Range Comments MAGNESIUM (BEAKER) (test 3.0 mg/dL 1.6-2.6 Specimen moderately hemolyzed eccv=466) [id number] 16:15:00 Test Item Value Reference Range Comments PHOSPHORUS (BEAKER) (test 6.6 mg/dL 2.3-4.7 Specimen moderately hemolyzed ixzb=980) BASIC METABOLIC [id number] 16:15:00 Test Item Value Reference Range Comments SODIUM (BEAKER) (test 144 meq/L 136-145 idap=085) POTASSIUM (BEAKER) (test 4.1 meq/L 3.5-5.1 Specimen moderately xitp=816) hemolyzed CHLORIDE (BEAKER) (test 106 meq/L 98-107 grfd=469) CO2 (BEAKER) (test 27 meq/L 22-29 ftee=137) BLOOD UREA NITROGEN 30 mg/dL 7-21 (BEAKER) (test twwp=061) CREATININE (BEAKER) (test 1.99 mg/dL 0.57-1.25 Specimen moderately zpmo=517) hemolyzed GLUCOSE RANDOM (BEAKER) 165 mg/dL 70-105 (test jooz=488) CALCIUM (BEAKER) (test 8.6 mg/dL 8.4-10.2 ylkl=592) EGFR (BEAKER) (test 30 mL/min/1.73 sq m ESTIMATED GFR IS NOT nvst=3449) ACCURATE CREATININE CLEARANCE IN PREDICTING GLOMERULAR FILTRATION RATE. ESTIMATED GFR IS NOT APPLICABLE FOR DIALYSIS PATIENTS. CBC (HEMOGRAM ONLY)[id number] 16:13:00 Test Item Value Reference Range Comments WHITE BLOOD CELL COUNT (BEAKER) (test pzsk=429) 14.5 K/ L 3.5-10.5 RED BLOOD CELL COUNT (BEAKER) (test nspw=280) 3.55 M/ L 3.93-5.22 HEMOGLOBIN (BEAKER) (test spns=315) 10.7 GM/DL 11.2-15.7 HEMATOCRIT (BEAKER) (test tjll=283) 34.9 % 34.1-44.9 MEAN CORPUSCULAR VOLUME (BEAKER) (test xxdt=414) 98.3 fL 79.4-94.8 MEAN CORPUSCULAR HEMOGLOBIN (BEAKER) (test 30.1 pg 25.6-32.2 jsqa=618) MEAN CORPUSCULAR HEMOGLOBIN CONC (BEAKER) (test 30.7 GM/DL 32.2-35.5 jhby=406) RED CELL DISTRIBUTION WIDTH (BEAKER) (test 13.3 % 11.7-14.4 cumf=836) PLATELET COUNT (BEAKER) (test wyfs=921) 235 K/CU MM 150-450 MEAN PLATELET VOLUME (BEAKER) (test cytr=505) 11.0 fL 9.4-12.3 NUCLEATED RED BLOOD CELLS (BEAKER) (test 0 /100 WBC 0-0 izfk=710) LACTIC ACID, ARTERIAL, WHOLE [id number] 16:12:00 Test Item Value Reference Range Comments LACTATE BLOOD ARTERIAL (2) 2.0 mmol/L 0.5-2.2 Specimen slightly hemolyzed (BEAKER) (test ohta=3025) Effective 08/06/2015: Units/Reference Range ChangeNew: 0.5-2.2 mmol/L Previous: 5 -20 mg/dLCALCIUM, [id number] 15:54:00 Test Item Value Reference Range Comments CALCIUM IONIZED (BEAKER) (test hpgl=251) 1.14 mmol/L 1.12-1.27 PH, BLOOD (BEAKER) (test pnvh=5511) 7.24 SODIUM NA-STAT [id number] 15:54:00 Test Item Value Reference Range Comments SODIUM (BEAKER) (test uxix=535) 143 meq/L 135-148 POTASSIUM-STAT [id number] 15:54:00 Test Item Value Reference Range Comments POTASSIUM (BEAKER) (test lfpx=431) 3.9 meq/L 3.6-5.5 BLOOD GAS, [id number] 15:54:00 Test Item Value Reference Range Comments PH ARTERIAL (BEAKER) (test znbh=418) 7.26 7.35-7.45 PCO2 ARTERIAL (BEAKER) (test tjqw=712) 69 mmHg 35-45 PO2 ARTERIAL (BEAKER) (test lhog=608) 74 mmHg 80-90 O2 SATURATION ARTERIAL (BEAKER) (test ktle=830) 93.4 % 96.0-97.0 HCO3 ARTERIAL (BEAKER) (test cfdx=978) 31 mmol/L 21-29 BASE EXCESS ARTERIAL (BEAKER) (test zbux=495) 2.0 mmol/L -2.0-3.0 PATIENT TEMPERATURE (BEAKER) (test avvz=3648) 35.6 C FIO2 (BEAKER) (test anzl=4217) 50.0 % GLUCOSE-STAT [id number] 15:54:00 Test Item Value Reference Range Comments GLUCOSE RANDOM (BEAKER) (test ldkq=629) 169 mg/dL 70-110 HGB/HCT (H&H) - STAT [id number] 15:54:00 Test Item Value Reference Range Comments HEMOGLOBIN (BEAKER) (test ocul=744) 11.7 g/dL 12.0-15.0 HEMATOCRIT (BEAKER) (test wavy=366) 34.0 % 36.0-45.0 RAD, CHEST, 1 VIEW, NON [id number] 15:49:00Reason for exam:->sp PCI/ intubatedFINAL REPORT TECHNIQUE: [...] MDReport Verified Date/Time: 07/19/2017 15:49:37 Reading Location: [facility] RadiologyReading Room [id number] 14:13:00 Test Item Value Reference Range Comments ACTIVATED CLOTTING TIME [address] [facility] [address] ([facility]) (test dzwl=689) [facility] [address] TROPONIN [id number] 12:32:00 Test Item Value Reference Range Comments TROPONIN I (BEAKER) (test oxln=853) 119.79 ng/mL 0.00-0.03 Troponin I (TnI) levels [...] and persistent tachyarrhythmia.CREATINE KINASE (CK), TOTAL AND [id number] 12:26:00 Test Item Value Reference Range Comments CREATINE KINASE TOTAL (BEAKER) (test wusy=409) 2405 U/L 29-200 CREATINE KINASE-MB (BEAKER) (test byqr=726) 65.6 ng/mL 0.0-6.6 CREATINE KINASE-MB INDEX (BEAKER) (test spcp=989) 2.7 % CK-MB Reference Range:<6.7 Normal6.7-10.0 Borderline>10.0 AbnormalPOCT-GLUCOSE [id number] 12:20:00 Test Item Value Reference Range Comments POC-GLUCOSE METER (BEAKER) 183 mg/dL 70-[address] [facility] [address] (test ivip=1519) [facility] [address] [id number] 12:03:00 Test Item Value Reference Range Comments MAGNESIUM (BEAKER) (test cfvr=833) 2.8 mg/dL 1.6-2.6 [id number] 12:03:00 Test Item Value Reference Range Comments PHOSPHORUS (BEAKER) (test vrcc=466) 5.3 mg/dL 2.3-4.7 BASIC METABOLIC [id number] 12:03:00 Test Item Value Reference Range Comments SODIUM (BEAKER) (test 143 meq/L 136-145 ltqa=460) POTASSIUM (BEAKER) (test 3.8 meq/L 3.5-5.1 gyal=841) CHLORIDE (BEAKER) (test 106 meq/L 98-107 fozz=024) CO2 (BEAKER) (test 27 meq/L 22-29 nlwl=025) BLOOD UREA NITROGEN 29 mg/dL 7-21 (BEAKER) (test erqh=763) CREATININE (BEAKER) (test 1.92 mg/dL 0.57-1.25 pksm=366) GLUCOSE RANDOM (BEAKER) 188 mg/dL 70-105 (test lkjd=389) CALCIUM (BEAKER) (test 8.7 mg/dL 8.4-10.2 zxwe=797) EGFR (BEAKER) (test 31 mL/min/1.73 sq m ESTIMATED GFR IS NOT klth=4622) ACCURATE CREATININE CLEARANCE IN PREDICTING GLOMERULAR FILTRATION RATE. ESTIMATED GFR IS NOT APPLICABLE FOR DIALYSIS PATIENTS. POCT-GLUCOSE [id number] 11:19:00 Test Item Value Reference Range Comments POC-GLUCOSE METER (BEAKER) 190 mg/dL 70-110 TESTED AT [address] (test zfug=4356) [facility] [address] POCT-GLUCOSE [id number] 10:12:00 Test Item Value Reference Range Comments POC-GLUCOSE METER (BEAKER) 197 mg/dL 70-110 TESTED AT [address] (test lwwb=7662) [facility] [address] POCT-GLUCOSE [id number] 09:21:00 Test Item Value Reference Range Comments POC-GLUCOSE METER (BEAKER) 221 mg/dL 70-110 TESTED AT [address] (test gdzt=1706) [facility] [address] LACTIC ACID, ARTERIAL, WHOLE [id number] 09:19:00 Test Item Value Reference Range Comments LACTATE BLOOD ARTERIAL (2) (BEAKER) (test 2.4 mmol/L 0.5-2.2 zhqe=9898) Effective 08/06/2015: Units/Reference Range ChangeNew: 0.5-2.2 mmol/L Previous: 5 -20 mg/dLPROTHROMBIN [id number] 08:44:00 Test Item Value Reference Range Comments PROTIME (BEAKER) (test wgpn=749) 14.4 seconds 11.7-14.7 INR (BEAKER) (test sfkq=331) 1.1 <=5.9 RECOMMENDED COUMADIN/WARFARIN INR THERAPY RANGESSTANDARD DOSE: 2.0 - 3.0 Includes: PROPHYLAXIS forvenous thrombosis, systemic embolization; TREATMENT for venous thrombosis and/or pulmonary embolus.HIGH RISK: Target INR is 2.5-3.5 for patients with mechanical heart valves.[id number] 08:44:00 Test Item Value Reference Range Comments FIBRINOGEN LEVEL (BEAKER) (test cbqx=348) 367 mg/dl 225-434 [id number] 08:44:00 Test Item Value Reference Range Comments PARTIAL THROMBOPLASTIN TIME (BEAKER) (test 30.0 seconds 22.5-36.0 athz=183) POCT-GLUCOSE [id number] 07:52:00 Test Item Value Reference Range Comments POC-GLUCOSE METER (BEAKER) 215 mg/dL 70-110 TESTED AT [address] (test suqs=1657) [facility] [address] [address], CHEST, WITHOUT [id number] 07:50:00KEEP PATIENT ON CT TABLE. CALL RADIOLOGIST [...] Verified Date /Time: 07/19/2017 07:50:43 Reading Location: [facility] Diagnostic Imaging Reading Room - [place] [address] Electronically signed by: LYNNETTE CASTRO MD on 07:50 AMPOCT-GLUCOSE [id number] 07:37:00 Test Item Value Reference Range Comments POC-GLUCOSE METER (BEAKER) 225 mg/dL 70-110 TESTED AT [address] (test kwpv=1884) [facility] [address] RAD, CHEST, 1 VIEW, NON [id number] 04:04:00Reason for exam:->v tach/ iabpShould this be [...] at the time of this dictation. Signed: Phyllis Silvestre MDReport Verified Date/Time: 07/19/2017 04:04:19 Reading Location: [facility] B1 [id number] Ortho Consult Reading Room [id number] 03:59:00 Test Item Value Reference Range Comments PHOSPHORUS (BEAKER) (test gdva=687) 4.4 mg/dL 2.3-4.7 [id number] 03:59:00 Test Item Value Reference Range Comments MAGNESIUM (BEAKER) (test mxdb=755) 2.5 mg/dL 1.6-2.6 BASIC METABOLIC [id number] 03:59:00 Test Item Value Reference Range Comments SODIUM (BEAKER) (test 145 meq/L 136-145 kmlw=942) POTASSIUM (BEAKER) (test 3.6 meq/L 3.5-5.1 qthz=528) CHLORIDE (BEAKER) (test 106 meq/L 98-107 ccdq=178) CO2 (BEAKER) (test 25 meq/L 22-29 bcbb=351) BLOOD UREA NITROGEN 28 mg/dL 7-21 (BEAKER) (test ljjr=207) CREATININE (BEAKER) (test 1.93 mg/dL 0.57-1.25 mjrz=530) GLUCOSE RANDOM (BEAKER) 216 mg/dL 70-105 (test cwrl=061) CALCIUM (BEAKER) (test 9.0 mg/dL 8.4-10.2 vmqu=688) EGFR (BEAKER) (test 31 mL/min/1.73 sq m ESTIMATED GFR IS NOT acdc=5445) ACCURATE CREATININE CLEARANCE IN PREDICTING GLOMERULAR FILTRATION RATE. ESTIMATED GFR IS NOT APPLICABLE FOR DIALYSIS PATIENTS. B-TYPE NATRIURETIC FACTOR (BNP)2017-07-19 03:10:00 Test Item Value Reference Range Comments B-TYPE NATRIURETIC PEPTIDE (BEAKER) (test 2662 pg/mL 0-100 tiwj=896) HEPATIC FUNCTION [id number] 03:04:00 Test Item Value Reference Range Comments TOTAL PROTEIN (BEAKER) (test avtz=152) 6.6 gm/dL 6.0-8.3 ALBUMIN (BEAKER) (test smsr=7790) 3.5 g/dL 3.5-5.0 BILIRUBIN TOTAL (BEAKER) (test uufh=249) 0.4 mg/dL 0.2-1.2 BILIRUBIN DIRECT (BEAKER) (test tpvf=136) 0.2 mg/dL 0.1-0.5 ALKALINE PHOSPHATASE (BEAKER) (test mrxp=705) 57 U/L 40-150 AST (SGOT) (BEAKER) (test xnvx=319) 359 U/L 5-34 ALT (SGPT) (BEAKER) (test ozbn=615) 99 U/L 6-55 CREATINE KINASE (CK)2017-07-19 03:04:00 Test Item Value Reference Range Comments CREATINE KINASE TOTAL (BEAKER) (test tgow=560) 2888 U/L 29-200 CBC W/PLT COUNT & AUTO [id number] 02:56:00 Test Item Value Reference Range Comments WHITE BLOOD CELL COUNT (BEAKER) (test ptlo=815) 19.0 K/ L 3.5-10.5 RED BLOOD CELL COUNT (BEAKER) (test uynq=953) 3.69 M/ L 3.93-5.22 HEMOGLOBIN (BEAKER) (test erjp=265) 11.2 GM/DL 11.2-15.7 HEMATOCRIT (BEAKER) (test vmms=644) 35.3 % 34.1-44.9 MEAN CORPUSCULAR VOLUME (BEAKER) (test jbwg=639) 95.7 fL 79.4-94.8 MEAN CORPUSCULAR HEMOGLOBIN (BEAKER) (test 30.4 pg 25.6-32.2 amqu=669) MEAN CORPUSCULAR HEMOGLOBIN CONC (BEAKER) (test 31.7 GM/DL 32.2-35.5 papj=368) RED CELL DISTRIBUTION WIDTH (BEAKER) (test 13.1 % 11.7-14.4 hjqd=111) PLATELET COUNT (BEAKER) (test jsuf=640) 253 K/CU MM 150-450 MEAN PLATELET VOLUME (BEAKER) (test mszg=260) 10.0 fL 9.4-12.3 NUCLEATED RED BLOOD CELLS (BEAKER) (test 0 /100 WBC 0-0 qwha=968) NEUTROPHILS RELATIVE PERCENT (BEAKER) (test 86 % hrrs=716) LYMPHOCYTES RELATIVE PERCENT (BEAKER) (test 6 % wgwv=524) MONOCYTES RELATIVE PERCENT (BEAKER) (test 7 % gnwz=222) EOSINOPHILS RELATIVE PERCENT (BEAKER) (test 0 % wibx=710) BASOPHILS RELATIVE PERCENT (BEAKER) (test 0 % qoty=565) NEUTROPHILS ABSOLUTE COUNT (BEAKER) (test 16.34 K/ L 1.56-6.13 pxwm=735) LYMPHOCYTES ABSOLUTE COUNT (BEAKER) (test 1.15 K/ L 1.18-3.74 giqp=425) MONOCYTES ABSOLUTE COUNT (BEAKER) (test 1.39 K/ L 0.24-0.36 quxc=297) EOSINOPHILS ABSOLUTE COUNT (BEAKER) (test 0.00 K/ L 0.04-0.36 vrla=913) BASOPHILS ABSOLUTE COUNT (BEAKER) (test 0.02 K/ L 0.01-0.08 vkvy=168) IMMATURE GRANULOCYTES-RELATIVE PERCENT (BEAKER) 0 % 0-1 (test agfe=0710) CALCIUM, [id number] 02:49:00 Test Item Value Reference Range Comments CALCIUM IONIZED (BEAKER) (test uctg=133) 1.14 mmol/L 1.12-1.27 PH, BLOOD (BEAKER) (test fgpr=4756) 7.36 CBC (HEMOGRAM ONLY)2017-07-19 02:48:00 Test Item Value Reference Range Comments WHITE BLOOD CELL COUNT (BEAKER) (test gjlu=696) 19.0 K/ L 3.5-10.5 RED BLOOD CELL COUNT (BEAKER) (test oaai=558) 3.69 M/ L 3.93-5.22 HEMOGLOBIN (BEAKER) (test weod=648) 11.2 GM/DL 11.2-15.7 HEMATOCRIT (BEAKER) (test jzsi=828) 35.3 % 34.1-44.9 MEAN CORPUSCULAR VOLUME (BEAKER) (test aksj=939) 95.7 fL 79.4-94.8 MEAN CORPUSCULAR HEMOGLOBIN (BEAKER) (test 30.4 pg 25.6-32.2 claj=542) MEAN CORPUSCULAR HEMOGLOBIN CONC (BEAKER) (test 31.7 GM/DL 32.2-35.5 fkor=779) RED CELL DISTRIBUTION WIDTH (BEAKER) (test 13.1 % 11.7-14.4 kmei=676) PLATELET COUNT (BEAKER) (test kcrh=208) 253 K/CU MM 150-450 MEAN PLATELET VOLUME (BEAKER) (test dqij=394) 10.0 fL 9.4-12.3 NUCLEATED RED BLOOD CELLS (BEAKER) (test 0 /100 WBC 0-0 gdiv=974) BLOOD GAS, [id number] 02:48:00 Test Item Value Reference Range Comments PH ARTERIAL (BEAKER) (test mxov=398) 7.35 7.35-7.45 PCO2 ARTERIAL (BEAKER) (test pevz=923) 55 mmHg 35-45 PO2 ARTERIAL (BEAKER) (test ueho=595) 73 mmHg 80-90 O2 SATURATION ARTERIAL (BEAKER) (test fjpt=145) 93.3 % 96.0-97.0 HCO3 ARTERIAL (BEAKER) (test qnrg=810) 30 mmol/L 21-29 BASE EXCESS ARTERIAL (BEAKER) (test enmk=994) 3.1 mmol/L -2.0-3.0 PATIENT TEMPERATURE (BEAKER) (test oyvy=5175) 37.5 C FIO2 (BEAKER) (test izuu=3449) 40.0 % POCT-GLUCOSE [id number] 02:21:00 Test Item Value Reference Range Comments POC-GLUCOSE METER (BEAKER) 184 mg/dL 70-110 TESTED AT [address] (test kvea=6506) [facility] [address] POCT-GLUCOSE [id number] 01:15:00 Test Item Value Reference Range Comments POC-GLUCOSE METER (BEAKER) 173 mg/dL 70-110 TESTED AT [address] (test wbxa=6543) [facility] [address] [id number] 00:55:00 Test Item Value Reference Range Comments PHOSPHORUS (BEAKER) (test stzi=531) 3.3 mg/dL 2.3-4.7 [id number] 00:55:00 Test Item Value Reference Range Comments MAGNESIUM (BEAKER) (test cvgf=020) 1.8 mg/dL 1.6-2.6 BASIC METABOLIC [id number] 00:55:00 Test Item Value Reference Range Comments SODIUM (BEAKER) (test 143 meq/L 136-145 adiz=391) POTASSIUM (BEAKER) (test 3.9 meq/L 3.5-5.1 dcku=253) CHLORIDE (BEAKER) (test 106 meq/L 98-107 ezzv=394) CO2 (BEAKER) (test 27 meq/L 22-29 asqv=285) BLOOD UREA NITROGEN 27 mg/dL 7-21 (BEAKER) (test phii=553) CREATININE (BEAKER) (test 1.90 mg/dL 0.57-1.25 prez=930) GLUCOSE RANDOM (BEAKER) 181 mg/dL 70-105 (test cicd=859) CALCIUM (BEAKER) (test 8.9 mg/dL 8.4-10.2 ayrf=197) EGFR (BEAKER) (test 32 mL/min/1.73 sq m ESTIMATED GFR IS NOT cykn=9267) ACCURATE CREATININE CLEARANCE IN PREDICTING GLOMERULAR FILTRATION RATE. ESTIMATED GFR IS NOT APPLICABLE FOR DIALYSIS PATIENTS. POCT-GLUCOSE [id number] 00:11:00 Test Item Value Reference Range Comments POC-GLUCOSE METER (BEAKER) 177 mg/dL 70-110 TESTED AT [address] (test ehib=0398) [place] [id number] POCT-GLUCOSE [id number] 23:25:00 Test Item Value Reference Range Comments POC-GLUCOSE METER (BEAKER) 206 mg/dL 70-110 TESTED AT [address] (test hqoy=9442) [facility] [address] POCT-GLUCOSE [id number] 22:19:00 Test Item Value Reference Range Comments POC-GLUCOSE METER (BEAKER) 243 mg/dL 70-110 TESTED AT [address] (test meqz=7319) [facility] [address] POCT-GLUCOSE [id number] 21:37:00 Test Item Value Reference Range Comments POC-GLUCOSE METER (BEAKER) 235 mg/dL 70-110 TESTED AT [address] (test vajr=9986) [place] [id number] POCT-GLUCOSE [id number] 20:04:00 Test Item Value Reference Range Comments POC-GLUCOSE METER (BEAKER) 216 mg/dL 70-110 TESTED AT [address] (test bgww=4940) [place] [id number] POCT-GLUCOSE [id number] 18:40:00 Test Item Value Reference Range Comments POC-GLUCOSE METER (BEAKER) 271 mg/dL 70-[address] [facility] [address] (test qqih=8524) [facility] [address] [id number] 18:32:00 Test Item Value Reference Range Comments MAGNESIUM (BEAKER) (test 1.9 mg/dL 1.6-2.6 Specimen slightly hemolyzed oydj=861) [id number] 18:32:00 Test Item Value Reference Range Comments PHOSPHORUS (BEAKER) (test 3.1 mg/dL 2.3-4.7 Specimen slightly hemolyzed ciwy=908) BASIC METABOLIC [id number] 18:32:00 Test Item Value Reference Range Comments SODIUM (BEAKER) (test 142 meq/L 136-145 dyuv=244) POTASSIUM (BEAKER) (test 3.9 meq/L 3.5-5.1 Specimen slightly rmcv=881) hemolyzed CHLORIDE (BEAKER) (test 107 meq/L 98-107 fady=992) CO2 (BEAKER) (test 24 meq/L 22-29 ypum=744) BLOOD UREA NITROGEN 22 mg/dL 7-21 (BEAKER) (test adsh=989) CREATININE (BEAKER) (test 1.55 mg/dL 0.57-1.25 Specimen slightly oziw=698) hemolyzed GLUCOSE RANDOM (BEAKER) 242 mg/dL 70-105 (test ceog=574) CALCIUM (BEAKER) (test 8.8 mg/dL 8.4-10.2 xwfb=473) EGFR (BEAKER) (test 40 mL/min/1.73 sq m ESTIMATED GFR IS NOT bdho=9816) ACCURATE CREATININE CLEARANCE IN PREDICTING GLOMERULAR FILTRATION RATE. ESTIMATED GFR IS NOT APPLICABLE FOR DIALYSIS PATIENTS. BLOOD GAS, [id number] 18:24:00 Test Item Value Reference Range Comments PH ARTERIAL (BEAKER) (test puri=356) 7.34 7.35-7.45 PCO2 ARTERIAL (BEAKER) (test qyct=782) 51 mmHg 35-45 PO2 ARTERIAL (BEAKER) (test uzdh=320) 57 mmHg 80-90 O2 SATURATION ARTERIAL (BEAKER) (test bxyu=834) 87.5 % 96.0-97.0 HCO3 ARTERIAL (BEAKER) (test jeei=881) 27 mmol/L 21-29 BASE EXCESS ARTERIAL (BEAKER) (test oehm=430) 1.0 mmol/L -2.0-3.0 PATIENT TEMPERATURE (BEAKER) (test bnts=5478) 37.2 C FIO2 (BEAKER) (test paux=7051) 40.0 % POCT-GLUCOSE [id number] 17:14:00 Test Item Value Reference Range Comments POC-GLUCOSE METER (BEAKER) 299 mg/dL 70-[address] [facility] [address] [place] [address] (test svhn=2563) [facility] [address] LACTIC ACID, ARTERIAL, WHOLE [id number] 16:37:00 Test Item Value Reference Range Comments LACTATE BLOOD ARTERIAL (2) 2.9 mmol/L 0.5-2.2 Specimen slightly hemolyzed (BEAKER) (test zafw=4797) Effective 08/06/2015: Units/Reference Range ChangeNew: 0.5-2.2 mmol/L Previous: 5 -20 mg/[id number] 15:45:00 Test Item Value Reference Range Comments GLUCOSE RANDOM (BEAKER) (test tmof=956) 439 mg/dL 70-105 If last glucose was less than 500, may do bedside glucose instead of serum glucose.POCT-GLUCOSE [id number] 15:21:00 Test Item Value Reference Range Comments POC-GLUCOSE METER (BEAKER) 374 mg/dL 70-110 Notified PAULA BERGER/TESTED AT [facility] (test uedx=1370) [address] [facility] [address] [id number] 15:14:00 Test Item Value Reference Range Comments POTASSIUM (BEAKER) (test qgzd=227) 4.0 meq/L 3.5-5.1 If last glucose was less than 500, may do bedside glucose instead of serum glucose.URINALYSIS W/ [id number] 15:03:00 Test Item Value Reference Range Comments COLOR (BEAKER) (test sagk=022) Yellow CLARITY (BEAKER) (test xsae=797) Clear SPECIFIC GRAVITY UA (BEAKER) (test kseg=058) 1.050 1.001-1.035 PH UA (BEAKER) (test okgo=588) 5.5 5.0-8.0 PROTEIN UA (BEAKER) (test jhfa=992) 50 mg/dL Negative GLUCOSE UA (BEAKER) (test gcck=839) >1000 mg/dL Negative KETONES UA (BEAKER) (test tnbv=661) Negative Negative BILIRUBIN UA (BEAKER) (test jwrj=973) Negative Negative BLOOD UA (BEAKER) (test nykk=695) Moderate Negative NITRITE UA (BEAKER) (test ofnx=803) Negative Negative LEUKOCYTE ESTERASE UA (BEAKER) (test gkol=738) Negative Negative UROBILINOGEN UA (BEAKER) (test adle=501) 0.2 mg/dL 0.2-1.0 RBC UA (BEAKER) (test giqb=075) 16 /HPF WBC UA (BEAKER) (test twen=869) 11 /HPF BACTERIA (BEAKER) (test smnp=375) Rare MUCUS (BEAKER) (test iiyr=2251) Rare SQUAMOUS EPITHELIAL (BEAKER) (test kxmw=676) 1 /HPF SOURCE(BEAKER) (test udjb=8754) U/S, RENAL, [id number] 14:36:00Reason for exam:->acute renal failure , hydronephrosisShould [...] Diazeport Verified Date/Time: 07/18/2017 14:36:40 Reading Location: [facility] [id number] Ultrasound Reading Room Electronically signed by: VIRGINIA DIAZ M.D. on 02:36 PMT4, [id number] 14:31:00 Test Item Value Reference Range Comments FREE T4 (BEAKER) (test qrbf=185) 1.13 ng/dL 0.70-1.48 BLOOD GAS, [id number] 14:01:00 Test Item Value Reference Range Comments PH ARTERIAL (BEAKER) (test owbt=875) 7.42 7.35-7.45 PCO2 ARTERIAL (BEAKER) (test frln=971) 42 mmHg 35-45 PO2 ARTERIAL (BEAKER) (test kcwq=848) 66 mmHg 80-90 O2 SATURATION ARTERIAL (BEAKER) (test aura=775) 93.5 % 96.0-97.0 HCO3 ARTERIAL (BEAKER) (test vury=064) 27 mmol/L 21-29 BASE EXCESS ARTERIAL (BEAKER) (test xkek=933) 2.1 mmol/L -2.0-3.0 PATIENT TEMPERATURE (BEAKER) (test ngam=5652) 36.9 C FIO2 (BEAKER) (test rfsz=7483) 40.0 % HEMOGLOBIN [id number] 13:57:00 Test Item Value Reference Range Comments HEMOGLOBIN A1C (BEAKER) (test ehqy=178) 9.8 % 4.3-6.1 SODIUM, RANDOM [id number] 13:49:00 Test Item Value Reference Range Comments SODIUM URINE (BEAKER) (test eflf=811) 22 meq/L Reference Range: No NormalsTSH/FREE T4 IF [id number] 13:49:00 Test Item Value Reference Range Comments THYROID STIMULATING HORMONE (BEAKER) (test 0.27 uIU/mL 0.35-4.94 saiq=761) POCT-GLUCOSE [id number] 13:47:00 Test Item Value Reference Range Comments POC-GLUCOSE METER (BEAKER) 398 mg/dL 70-[address] [facility] [address] [facility] (test hucu=3544) [facility] [address] CREATININE, RANDOM [id number] 13:43:00 Test Item Value Reference Range Comments CREATININE URINE (BEAKER) (test tsor=888) 85.4 mg/dL Reference Range: No NormalsPROTEIN, RANDOM [id number] 13:43:00 Test Item Value Reference Range Comments PROTEIN, URINE (BEAKER) (test lcdl=8571) 75 mg/dL 0-14 B-TYPE NATRIURETIC FACTOR (BNP)2017-07-18 13:17:00 Test Item Value Reference Range Comments B-TYPE NATRIURETIC PEPTIDE (BEAKER) (test 1847 pg/mL 0-100 qysy=184) BASIC METABOLIC [id number] 13:13:00 Test Item Value Reference Range Comments SODIUM (BEAKER) (test 138 meq/L 136-145 rwqz=934) POTASSIUM (BEAKER) (test 4.8 meq/L 3.5-5.1 jjlo=035) CHLORIDE (BEAKER) (test 101 meq/L 98-107 olci=392) CO2 (BEAKER) (test 26 meq/L 22-29 cfys=731) BLOOD UREA NITROGEN 21 mg/dL 7-21 (BEAKER) (test rhjt=936) CREATININE (BEAKER) (test 1.62 mg/dL 0.57-1.25 fjiw=665) GLUCOSE RANDOM (BEAKER) 527 mg/dL 70-105 (test hyhc=691) CALCIUM (BEAKER) (test 8.9 mg/dL 8.4-10.2 pvay=587) EGFR (BEAKER) (test 38 mL/min/1.73 sq m ESTIMATED GFR IS NOT zhyc=9965) ACCURATE CREATININE CLEARANCE IN PREDICTING GLOMERULAR FILTRATION RATE. ESTIMATED GFR IS NOT APPLICABLE FOR DIALYSIS PATIENTS. If last glucose was less than 500, may do bedside glucose instead of serum glucose.[id number] 13:12:00 Test Item Value Reference Range Comments MAGNESIUM (BEAKER) (test szci=276) 1.9 mg/dL 1.6-2.6 If last glucose was less than 500, may do bedside glucose instead of serum glucose.[id number] 13:12:00 Test Item Value Reference Range Comments LIPASE (BEAKER) (test zlcm=367) 106 U/L 8-78 If last glucose was less than 500, may do bedside glucose instead of serum glucose.[id number] 13:11:00 Test Item Value Reference Range Comments PHOSPHORUS (BEAKER) (test uewq=741) 3.3 mg/dL 2.3-4.7 If last glucose was less than 500, may do bedside glucose instead of serum glucose.POCT-GLUCOSE [id number] 12:49:00 Test Item Value Reference Range Comments POC-GLUCOSE METER (BEAKER) 498 mg/dL 70-110 Notified PAULA BERGER/TESTED AT [facility] (test kldg=3021) [address] [facility] [address] [facility] [address] LACTIC ACID, VENOUS, WHOLE [id number] 12:11:00 Test Item Value Reference Range Comments LACTATE BLOOD VENOUS (2) (BEAKER) (test 3.8 mmol/L 0.5-2.2 rmru=6532) Effective 08/06/2015: Units/Reference Range ChangeNew: 0.5-2.2 mmol/L Previous: 5 -20 mg/[id number] 12:10:00 Test Item Value Reference Range Comments PROCALCITONIN (BEAKER) (test pjxz=1884) 3.80 ng/mL <0.05 SEPSIS RISK (ng/mL)Low: 0.05-0.50Intermediate: 0.51-2.00High: & gt;=2.01CBC W/PLT COUNT & AUTO [id number] 12:10:00 Test Item Value Reference Range Comments WHITE BLOOD CELL COUNT (BEAKER) (test nscz=608) 11.2 K/ L 3.5-10.5 RED BLOOD CELL COUNT (BEAKER) (test eywr=596) 3.98 M/ L 3.93-5.22 HEMOGLOBIN (BEAKER) (test fvdi=083) 12.0 GM/DL 11.2-15.7 HEMATOCRIT (BEAKER) (test pkiz=179) 38.5 % 34.1-44.9 MEAN CORPUSCULAR VOLUME (BEAKER) (test zehq=300) 96.7 fL 79.4-94.8 MEAN CORPUSCULAR HEMOGLOBIN (BEAKER) (test 30.2 pg 25.6-32.2 cvcu=715) MEAN CORPUSCULAR HEMOGLOBIN CONC (BEAKER) (test 31.2 GM/DL 32.2-35.5 hydd=025) RED CELL DISTRIBUTION WIDTH (BEAKER) (test 13.1 % 11.7-14.4 ryyf=491) PLATELET COUNT (BEAKER) (test bliz=887) 222 K/CU MM 150-450 MEAN PLATELET VOLUME (BEAKER) (test posz=928) 10.2 fL 9.4-12.3 NUCLEATED RED BLOOD CELLS (BEAKER) (test 0 /100 WBC 0-0 ynkz=580) NEUTROPHILS RELATIVE PERCENT (BEAKER) (test 96 % syor=373) LYMPHOCYTES RELATIVE PERCENT (BEAKER) (test 2 % gnhe=525) MONOCYTES RELATIVE PERCENT (BEAKER) (test 2 % tuue=969) EOSINOPHILS RELATIVE PERCENT (BEAKER) (test 0 % tlap=866) BASOPHILS RELATIVE PERCENT (BEAKER) (test 0 % pcll=843) NEUTROPHILS ABSOLUTE COUNT (BEAKER) (test 10.72 K/ L 1.56-6.13 xjjz=358) LYMPHOCYTES ABSOLUTE COUNT (BEAKER) (test 0.24 K/ L 1.18-3.74 xclu=625) MONOCYTES ABSOLUTE COUNT (BEAKER) (test 0.22 K/ L 0.24-0.36 chzq=889) EOSINOPHILS ABSOLUTE COUNT (BEAKER) (test 0.00 K/ L 0.04-0.36 ydsw=086) BASOPHILS ABSOLUTE COUNT (BEAKER) (test 0.01 K/ L 0.01-0.08 gndr=773) IMMATURE GRANULOCYTES-RELATIVE PERCENT (BEAKER) 0 % 0-1 (test febj=2256) BASIC METABOLIC [id number] 11:35:00 Test Item Value Reference Range Comments SODIUM (BEAKER) (test 136 meq/L 136-145 enfp=429) POTASSIUM (BEAKER) (test 4.8 meq/L 3.5-5.1 lyhm=479) CHLORIDE (BEAKER) (test 99 meq/L 98-107 ddjp=656) CO2 (BEAKER) (test 25 meq/L 22-29 lbxv=739) BLOOD UREA NITROGEN 19 mg/dL 7-21 (BEAKER) (test plzo=896) CREATININE (BEAKER) (test 1.61 mg/dL 0.57-1.25 quoc=514) GLUCOSE RANDOM (BEAKER) 568 mg/dL 70-105 (test qhtm=150) CALCIUM (BEAKER) (test 8.9 mg/dL 8.4-10.2 rjdg=446) EGFR (BEAKER) (test 38 mL/min/1.73 sq m ESTIMATED GFR IS NOT qfbc=1549) ACCURATE CREATININE CLEARANCE IN PREDICTING GLOMERULAR FILTRATION RATE. ESTIMATED GFR IS NOT APPLICABLE FOR DIALYSIS PATIENTS. BLOOD GAS, [id number] 10:57:00 Test Item Value Reference Range Comments PH ARTERIAL (BEAKER) (test tlan=892) 7.36 7.35-7.45 PCO2 ARTERIAL (BEAKER) (test vpxo=599) 47 mmHg 35-45 PO2 ARTERIAL (BEAKER) (test iwiw=668) 78 mmHg 80-90 O2 SATURATION ARTERIAL (BEAKER) (test knbj=783) 95.0 % 96.0-97.0 HCO3 ARTERIAL (BEAKER) (test wtlo=110) 26 mmol/L 21-29 BASE EXCESS ARTERIAL (BEAKER) (test fspk=977) 0.4 mmol/L -2.0-3.0 PATIENT TEMPERATURE (BEAKER) (test xopf=5882) 37.0 C FIO2 (BEAKER) (test koon=8094) 100.0 % RAD, CHEST, 1 VIEW, NON [id number] 10:38:00Reason for exam:->IABP Should this be performed [...] MDReport Verified Date/Time: 07/18/2017 10:38:31 Reading Location: [facility] Radiology Reading Room CBC W/PLT COUNT & AUTO [id number] 10: 01:00 Test Item Value Reference Range Comments WHITE BLOOD CELL COUNT (BEAKER) (test rjpu=407) 12.8 K/ L 3.5-10.5 RED BLOOD CELL COUNT (BEAKER) (test crxw=302) 3.95 M/ L 3.93-5.22 HEMOGLOBIN (BEAKER) (test mumn=830) 11.9 GM/DL 11.2-15.7 HEMATOCRIT (BEAKER) (test qhua=466) 38.3 % 34.1-44.9 MEAN CORPUSCULAR VOLUME (BEAKER) (test dfiy=432) 97.0 fL 79.4-94.8 MEAN CORPUSCULAR HEMOGLOBIN (BEAKER) (test 30.1 pg 25.6-32.2 uosr=680) MEAN CORPUSCULAR HEMOGLOBIN CONC (BEAKER) (test 31.1 GM/DL 32.2-35.5 mtit=457) RED CELL DISTRIBUTION WIDTH (BEAKER) (test 13.1 % 11.7-14.4 redk=999) PLATELET COUNT (BEAKER) (test qcnv=892) 231 K/CU MM 150-450 MEAN PLATELET VOLUME (BEAKER) (test ycnq=439) 10.4 fL 9.4-12.3 NUCLEATED RED BLOOD CELLS (BEAKER) (test 0 /100 WBC 0-0 ntlq=897) NEUTROPHILS RELATIVE PERCENT (BEAKER) (test 91 % iogf=286) LYMPHOCYTES RELATIVE PERCENT (BEAKER) (test 4 % oqbg=524) MONOCYTES RELATIVE PERCENT (BEAKER) (test 4 % orad=417) EOSINOPHILS RELATIVE PERCENT (BEAKER) (test 0 % ifdd=323) BASOPHILS RELATIVE PERCENT (BEAKER) (test 0 % vevn=687) NEUTROPHILS ABSOLUTE COUNT (BEAKER) (test 11.66 K/ L 1.56-6.13 yojw=835) LYMPHOCYTES ABSOLUTE COUNT (BEAKER) (test 0.53 K/ L 1.18-3.74 exzf=860) MONOCYTES ABSOLUTE COUNT (BEAKER) (test 0.49 K/ L 0.24-0.36 jrkg=192) EOSINOPHILS ABSOLUTE COUNT (BEAKER) (test 0.01 K/ L 0.04-0.36 vceg=943) BASOPHILS ABSOLUTE COUNT (BEAKER) (test 0.03 K/ L 0.01-0.08 cmii=988) IMMATURE GRANULOCYTES-RELATIVE PERCENT (BEAKER) 0 % 0-1 (test tqlh=1021) COMPREHENSIVE METABOLIC [id number] 09:38:00 Test Item Value Reference Range Comments TOTAL PROTEIN (BEAKER) 6.7 gm/dL 6.0-8.3 Specimen slightly (test poig=517) hemolyzed ALBUMIN (BEAKER) (test 3.5 g/dL 3.5-5.0 Specimen slightly rttm=0561) hemolyzed ALKALINE PHOSPHATASE 70 U/L 40-150 (BEAKER) (test srac=324) BILIRUBIN TOTAL (BEAKER) 0.6 mg/dL 0.2-1.2 Specimen slightly (test jbjv=011) hemolyzed SODIUM (BEAKER) (test 134 meq/L 136-145 ccdu=181) POTASSIUM (BEAKER) (test 4.7 meq/L 3.5-5.1 Specimen slightly kgpn=940) hemolyzed CHLORIDE (BEAKER) (test 98 meq/L 98-107 qimw=348) CO2 (BEAKER) (test 25 meq/L 22-29 dwqw=478) BLOOD UREA NITROGEN 19 mg/dL 7-21 (BEAKER) (test eocs=466) CREATININE (BEAKER) (test 1.57 mg/dL 0.57-1.25 Specimen slightly ydni=391) hemolyzed GLUCOSE RANDOM (BEAKER) 652 mg/dL 70-105 (test wogr=850) CALCIUM (BEAKER) (test 8.7 mg/dL 8.4-10.2 wxfl=959) AST (SGOT) (BEAKER) (test 343 U/L 5-34 Specimen slightly caki=708) hemolyzed ALT (SGPT) (BEAKER) (test 89 U/L 6-55 Specimen slightly ptob=102) hemolyzed EGFR (BEAKER) (test 39 mL/min/1.73 sq m ESTIMATED GFR IS NOT qaxm=9953) ACCURATE CREATININE CLEARANCE IN PREDICTING GLOMERULAR FILTRATION RATE. ESTIMATED GFR IS NOT APPLICABLE FOR DIALYSIS PATIENTS. [id number] 09:09:00 Test Item Value Reference Range Comments ACTIVATED CLOTTING TIME [address] [facility] [address] (BEAKER) (test epzu=584) [facility] [address] PROTHROMBIN [id number] 09:01:00 Test Item Value Reference Range Comments PROTIME (BEAKER) (test ctqp=684) 18.3 seconds 11.7-14.7 INR (BEAKER) (test prwn=392) 1.5 <=5.9 RECOMMENDED COUMADIN/WARFARIN INR THERAPY RANGESSTANDARD DOSE: 2.0 - 3.0 Includes: PROPHYLAXIS forvenous thrombosis, systemic embolization; TREATMENT for venous thrombosis and/or pulmonary embolus.HIGH RISK: Target INR is 2.5-3.5 for patients with mechanical heart valves.[id number] 08:09:00 Test Item Value Reference Range Comments ACTIVATED CLOTTING TIME 213 sec TESTED AT [place] [address] [address] (BEAKER) (test zzxb=721) [facility] [address] [id number] 08:09:00 Test Item Value Reference Range Comments ACTIVATED CLOTTING TIME 263 sec TESTED AT [address] (BEAKER) (test sall=369) [place] [id number] BLOOD GAS, [id number] 07:50:00 Test Item Value Reference Range Comments PH ARTERIAL (BEAKER) (test rykg=874) 7.20 7.35-7.45 PCO2 ARTERIAL (BEAKER) (test encw=301) 65 mmHg 35-45 PO2 ARTERIAL (BEAKER) (test cwyt=786) 133 mmHg 80-90 O2 SATURATION ARTERIAL (BEAKER) (test cwbt=575) 98.1 % 96.0-97.0 HCO3 ARTERIAL (BEAKER) (test avyq=816) 25 mmol/L 21-29 BASE EXCESS ARTERIAL (BEAKER) (test zwrr=303) -4.3 mmol/L -2.0-3.0 PATIENT TEMPERATURE (BEAKER) (test fthk=4910) 36.0 C FIO2 (BEAKER) (test dvae=9323) 100.0 % POCT-GLUCOSE [id number] 12:27:00 Test Item Value Reference Range Comments POC-GLUCOSE METER (BEAKER) 156 mg/dL 70-110 TESTED AT [address] (test infx=6223) [place] [address] BASIC METABOLIC [id number] 05:45:00 Test Item Value Reference Range Comments SODIUM (BEAKER) (test 141 meq/L 136-145 lban=881) POTASSIUM (BEAKER) (test 4.1 meq/L 3.5-5.1 strc=247) CHLORIDE (BEAKER) (test 106 meq/L 98-107 brhm=727) CO2 (BEAKER) (test 26 meq/L 22-29 xseb=137) BLOOD UREA NITROGEN 11 mg/dL 7-21 (BEAKER) (test twqh=244) CREATININE (BEAKER) (test 0.83 mg/dL 0.57-1.25 shmz=765) GLUCOSE RANDOM (BEAKER) 139 mg/dL 70-105 (test yrfe=928) CALCIUM (BEAKER) (test 8.5 mg/dL 8.4-10.2 nrih=910) EGFR (BEAKER) (test 83 mL/min/1.73 sq m ESTIMATED GFR IS NOT cwtj=1027) ACCURATE CREATININE CLEARANCE IN PREDICTING GLOMERULAR FILTRATION RATE. ESTIMATED GFR IS NOT APPLICABLE FOR DIALYSIS PATIENTS. POCT-GLUCOSE [id number] 21:10:00 Test Item Value Reference Range Comments POC-GLUCOSE METER (BEAKER) 103 mg/dL 70-110 TESTED AT [address] (test jqoy=4903) [place] [id number] POCT-GLUCOSE [id number] 17:51:00 Test Item Value Reference Range Comments POC-GLUCOSE METER (BEAKER) 138 mg/dL 70-110 TESTED AT [address] (test jims=2654) [place] [id number] POCT-GLUCOSE [id number] 12:45:00 Test Item Value Reference Range Comments POC-GLUCOSE METER (BEAKER) 294 mg/dL 70-110 TESTED AT [address] (test kcov=9710) [place] [address] CBC WITH PLATELET COUNT + MANUAL [id number] 07:04:00 Test Item Value Reference Range Comments WHITE BLOOD CELL COUNT (BEAKER) (test yrge=666) 10.7 K/ L 4.0-10.0 RED BLOOD CELL COUNT (BEAKER) (test ccps=230) 3.91 M/ L 4.00-5.00 HEMOGLOBIN (BEAKER) (test tqkb=574) 12.9 GM/DL 12.0-15.0 HEMATOCRIT (BEAKER) (test bdxi=799) 39.0 % 36.0-45.0 MEAN CORPUSCULAR VOLUME (BEAKER) (test hlca=485) 99.6 fL 82.0-99.0 MEAN CORPUSCULAR HEMOGLOBIN (BEAKER) (test 32.9 pg 27.0-33.0 nvax=296) MEAN CORPUSCULAR HEMOGLOBIN CONC (BEAKER) (test 33.0 GM/DL 32.0-36.0 soex=094) RED CELL DISTRIBUTION WIDTH (BEAKER) (test 12.8 % 10.3-14.2 cmuk=920) PLATELET COUNT (BEAKER) (test cqpg=367) 251 K/CU MM 150-430 MEAN PLATELET VOLUME (BEAKER) (test ljub=515) 8.1 fL 6.5-10.5 NUCLEATED RED BLOOD CELLS (BEAKER) (test 0 /100 WBC 0-0 acft=441) NEUTROPHILS RELATIVE PERCENT (BEAKER) (test 80 % enkr=273) LYMPHOCYTES RELATIVE PERCENT (BEAKER) (test 14 % vbfv=026) MONOCYTES RELATIVE PERCENT (BEAKER) (test 6 % riow=518) EOSINOPHILS RELATIVE PERCENT (BEAKER) (test 0 % oxwf=634) BASOPHILS RELATIVE PERCENT (BEAKER) (test 0 % hiab=398) NEUTROPHILS ABSOLUTE COUNT (BEAKER) (test 8.55 K/ L 1.80-8.00 czwn=762) LYMPHOCYTES ABSOLUTE COUNT (BEAKER) (test 1.46 K/ L 1.48-4.50 zfef=496) MONOCYTES ABSOLUTE COUNT (BEAKER) (test 0.60 K/ L 0.00-1.30 uvxj=265) EOSINOPHILS ABSOLUTE COUNT (BEAKER) (test 0.05 K/ L 0.00-0.50 tzki=348) BASOPHILS ABSOLUTE COUNT (BEAKER) (test 0.02 K/ L 0.00-0.20 yjop=463) 0.00(MANUAL DIFFERENTIAL)2016-06-14 07:04:00 Test Item Value Reference Range Comments TOTAL COUNTED (BEAKER) (test phri=0647) PLT MORPHOLOGY (BEAKER) (test lohd=977) Normal RBC MORPHOLOGY (BEAKER) (test ccyq=957) Normal ATYPICAL LYMPHS(BEAKER) (test xtgo=5855) Present BASIC METABOLIC [id number] 05:05:00 Test Item Value Reference Range Comments SODIUM (BEAKER) (test 140 meq/L 136-145 ikge=320) POTASSIUM (BEAKER) (test 3.8 meq/L 3.5-5.1 dkhj=060) CHLORIDE (BEAKER) (test 107 meq/L 98-107 tszn=460) CO2 (BEAKER) (test 26 meq/L 22-29 uoip=367) BLOOD UREA NITROGEN 13 mg/dL 7-21 (BEAKER) (test xntr=816) CREATININE (BEAKER) (test 0.80 mg/dL 0.57-1.25 sjbi=734) GLUCOSE RANDOM (BEAKER) 177 mg/dL 70-105 (test mdgn=811) CALCIUM (BEAKER) (test 8.3 mg/dL 8.4-10.2 lnzm=879) EGFR (BEAKER) (test 86 mL/min/1.73 sq m ESTIMATED GFR IS NOT prtt=6450) ACCURATE CREATININE CLEARANCE IN PREDICTING GLOMERULAR FILTRATION RATE. ESTIMATED GFR IS NOT APPLICABLE FOR DIALYSIS PATIENTS. [id number] 04:48:00 Test Item Value Reference Range Comments PROTIME (BEAKER) (test jufg=298) 13.0 seconds 11.7-14.7 INR (BEAKER) (test mphq=516) 1.0 <=5.9 PARTIAL THROMBOPLASTIN TIME (BEAKER) (test 31.8 seconds 22.5-36.0 ghcd=131) RECOMMENDED COUMADIN/WARFARIN INR THERAPY RANGESSTANDARD DOSE: 2.0 - 3.0 Includes: PROPHYLAXIS forvenous thrombosis, systemic embolization; TREATMENT for venous thrombosis and/or pulmonary embolus.HIGH RISK: Target INR is 2.5-3.5 for patients with mechanical heart valves.POCT-GLUCOSE [id number] 22:11:00 Test Item Value Reference Range Comments POC-GLUCOSE METER (BEAKER) 200 mg/dL 70-110 TESTED AT [address] (test kudt=1460) [place] [address] POCT-GLUCOSE [id number] 17:13:00 Test Item Value Reference Range Comments POC-GLUCOSE METER (BEAKER) 225 mg/dL 70-110 TESTED AT [address] (test kooc=4445) [place] [id number] POCT-GLUCOSE [id number] 12:22:00 Test Item Value Reference Range Comments POC-GLUCOSE METER (BEAKER) 309 mg/dL 70-110 Notified PAULA BERGER/TESTED AT [facility] (test nrah=8348) [address] [place], [place] [id number] URINALYSIS W/ [id number] 12:09:00 Test Item Value Reference Range Comments COLOR (BEAKER) (test qpcu=030) Yellow CLARITY (BEAKER) (test npcr=503) Clear SPECIFIC GRAVITY UA (BEAKER) (test wpun=858) 1.035 1.001-1.035 PH UA (BEAKER) (test daiv=296) 5.0 5.0-8.0 PROTEIN UA (BEAKER) (test qixw=580) Negative Negative GLUCOSE UA (BEAKER) (test zbij=913) 150 mg/dL Negative KETONES UA (BEAKER) (test jqgy=162) Negative Negative BILIRUBIN UA (BEAKER) (test qyhj=364) Negative Negative BLOOD UA (BEAKER) (test wdcd=481) Small Negative NITRITE UA (BEAKER) (test qewu=044) Negative Negative LEUKOCYTE ESTERASE UA (BEAKER) (test ssvg=260) Negative Negative UROBILINOGEN UA (BEAKER) (test qasx=259) 0.2 mg/dL 0.2-1.0 RBC UA (BEAKER) (test pqef=839) 6 /HPF WBC UA (BEAKER) (test ixfk=594) 1 /HPF MUCUS (BEAKER) (test ldiz=2454) Rare SQUAMOUS EPITHELIAL (BEAKER) (test txwz=967) 6 /HPF HYALINE CASTS (BEAKER) (test ghjn=046) 2 /LPF SOURCE(BEAKER) (test mioz=6147) POCT-GLUCOSE [id number] 07:58:00 Test Item Value Reference Range Comments POC-GLUCOSE METER (BEAKER) 236 mg/dL 70-110 TESTED AT [address] (test ajwh=9456) [facility] [address] BASIC METABOLIC [id number] 04:10:00 Test Item Value Reference Range Comments SODIUM (BEAKER) (test 138 meq/L 136-145 rkjq=533) POTASSIUM (BEAKER) (test 4.2 meq/L 3.5-5.1 pnuv=553) CHLORIDE (BEAKER) (test 107 meq/L 98-107 xqqq=815) CO2 (BEAKER) (test 22 meq/L 22-29 ovhm=115) BLOOD UREA NITROGEN 20 mg/dL 7-21 (BEAKER) (test knja=006) CREATININE (BEAKER) (test 1.00 mg/dL 0.57-1.25 eyba=647) GLUCOSE RANDOM (BEAKER) 246 mg/dL 70-105 (test ankb=266) CALCIUM (BEAKER) (test 8.8 mg/dL 8.4-10.2 sxac=349) EGFR (BEAKER) (test 67 mL/min/1.73 sq m ESTIMATED GFR IS NOT ixjc=4036) ACCURATE CREATININE CLEARANCE IN PREDICTING GLOMERULAR FILTRATION RATE. ESTIMATED GFR IS NOT APPLICABLE FOR DIALYSIS PATIENTS. PT/[id number] 04:03:00 Test Item Value Reference Range Comments PROTIME (BEAKER) (test svzn=697) 12.8 seconds 11.7-14.7 INR (BEAKER) (test pkrd=319) 1.0 <=5.9 PARTIAL THROMBOPLASTIN TIME (BEAKER) (test 29.6 seconds 22.5-36.0 dphf=850) RECOMMENDED COUMADIN/WARFARIN INR THERAPY RANGESSTANDARD DOSE: 2.0 - 3.0 Includes: PROPHYLAXIS forvenous thrombosis, systemic embolization; TREATMENT for venous thrombosis and/or pulmonary embolus.HIGH RISK: Target INR is 2.5-3.5 for patients with mechanical heart valves.CBC WITH PLATELET COUNT + MANUAL [id number] 03:58:00 Test Item Value Reference Range Comments WHITE BLOOD CELL COUNT (BEAKER) (test miks=643) 14.3 K/ L 4.0-10.0 RED BLOOD CELL COUNT (BEAKER) (test uqmf=214) 4.03 M/ L 4.00-5.00 HEMOGLOBIN (BEAKER) (test jaex=541) 13.1 GM/DL 12.0-15.0 HEMATOCRIT (BEAKER) (test qlkl=032) 39.7 % 36.0-45.0 MEAN CORPUSCULAR VOLUME (BEAKER) (test rqdd=559) 98.5 fL 82.0-99.0 MEAN CORPUSCULAR HEMOGLOBIN (BEAKER) (test 32.6 pg 27.0-33.0 padn=374) MEAN CORPUSCULAR HEMOGLOBIN CONC (BEAKER) (test 33.1 GM/DL 32.0-36.0 mdld=188) RED CELL DISTRIBUTION WIDTH (BEAKER) (test 12.9 % 10.3-14.2 jbwl=663) PLATELET COUNT (BEAKER) (test qjbz=965) 271 K/CU MM 150-430 MEAN PLATELET VOLUME (BEAKER) (test gwmk=715) 7.7 fL 6.5-10.5 NUCLEATED RED BLOOD CELLS (BEAKER) (test 0 /100 WBC 0-0 rixk=225) NEUTROPHILS RELATIVE PERCENT (BEAKER) (test 87 % xvlj=298) LYMPHOCYTES RELATIVE PERCENT (BEAKER) (test 7 % kznv=631) MONOCYTES RELATIVE PERCENT (BEAKER) (test 6 % ztha=990) EOSINOPHILS RELATIVE PERCENT (BEAKER) (test 0 % yhco=856) BASOPHILS RELATIVE PERCENT (BEAKER) (test 0 % adba=423) NEUTROPHILS ABSOLUTE COUNT (BEAKER) (test 12.40 K/ L 1.80-8.00 qwcn=666) LYMPHOCYTES ABSOLUTE COUNT (BEAKER) (test 1.06 K/ L 1.48-4.50 exyb=702) MONOCYTES ABSOLUTE COUNT (BEAKER) (test 0.81 K/ L 0.00-1.30 kinu=947) EOSINOPHILS ABSOLUTE COUNT (BEAKER) (test 0.01 K/ L 0.00-0.50 iefs=907) BASOPHILS ABSOLUTE COUNT (BEAKER) (test 0.03 K/ L 0.00-0.20 tatd=446) 0.000.530.000.000.520.000.000.000.00POCT-GLUCOSE [id number] 22:17:00 Test Item Value Reference Range Comments POC-GLUCOSE METER (BEAKER) 260 mg/dL 70-110 TESTED AT [address] (test ngzc=6971) [place] [address] POCT-GLUCOSE [id number] 12:11:00 Test Item Value Reference Range Comments POC-GLUCOSE METER (BEAKER) 278 mg/dL 70-110 TESTED AT [address] (test gjtm=4098) [place] [id number] HEMOGLOBIN [id number] 10:46:00 Test Item Value Reference Range Comments HEMOGLOBIN A1C (BEAKER) (test xnri=864) 9.7 % 4.3-6.1 DC\S\Delta Check\S\NONEPOCT-GLUCOSE [id number] 07:15:00 Test Item Value Reference Range Comments POC-GLUCOSE METER (BEAKER) 283 mg/dL 70-110 TESTED AT [address] (test ffnx=6847) [place] [id number] BASIC METABOLIC [id number] 04:43:00 Test Item Value Reference Range Comments SODIUM (BEAKER) (test 136 meq/L 136-145 urgj=102) POTASSIUM (BEAKER) (test 4.0 meq/L 3.5-5.1 crln=109) CHLORIDE (BEAKER) (test 102 meq/L 98-107 layk=841) CO2 (BEAKER) (test 27 meq/L 22-29 zmfb=111) BLOOD UREA NITROGEN 18 mg/dL 7-21 (BEAKER) (test cdxw=256) CREATININE (BEAKER) (test 0.95 mg/dL 0.57-1.25 ljqy=626) GLUCOSE RANDOM (BEAKER) 256 mg/dL 70-105 (test xmey=509) CALCIUM (BEAKER) (test 9.0 mg/dL 8.4-10.2 vxab=847) EGFR (BEAKER) (test 71 mL/min/1.73 sq m ESTIMATED GFR IS NOT ajzg=4559) ACCURATE CREATININE CLEARANCE IN PREDICTING GLOMERULAR FILTRATION RATE. ESTIMATED GFR IS NOT APPLICABLE FOR DIALYSIS PATIENTS. CBC WITH PLATELET COUNT + MANUAL [id number] 04:28:00 Test Item Value Reference Range Comments WHITE BLOOD CELL COUNT (BEAKER) (test fzmr=456) 11.6 K/ L 4.0-10.0 RED BLOOD CELL COUNT (BEAKER) (test qpuw=139) 4.15 M/ L 4.00-5.00 HEMOGLOBIN (BEAKER) (test rvqd=848) 13.3 GM/DL 12.0-15.0 HEMATOCRIT (BEAKER) (test rnqa=896) 40.5 % 36.0-45.0 MEAN CORPUSCULAR VOLUME (BEAKER) (test hgnb=019) 97.6 fL 82.0-99.0 MEAN CORPUSCULAR HEMOGLOBIN (BEAKER) (test 32.1 pg 27.0-33.0 icro=999) MEAN CORPUSCULAR HEMOGLOBIN CONC (BEAKER) (test 32.9 GM/DL 32.0-36.0 jujk=674) RED CELL DISTRIBUTION WIDTH (BEAKER) (test 12.7 % 10.3-14.2 kzki=608) PLATELET COUNT (BEAKER) (test rrct=933) 263 K/CU MM 150-430 MEAN PLATELET VOLUME (BEAKER) (test gapn=199) 8.2 fL 6.5-10.5 NUCLEATED RED BLOOD CELLS (BEAKER) (test 0 /100 WBC 0-0 byup=356) NEUTROPHILS RELATIVE PERCENT (BEAKER) (test 90 % rybp=485) LYMPHOCYTES RELATIVE PERCENT (BEAKER) (test 8 % uuag=172) MONOCYTES RELATIVE PERCENT (BEAKER) (test 2 % ztno=998) EOSINOPHILS RELATIVE PERCENT (BEAKER) (test 0 % iwvm=040) BASOPHILS RELATIVE PERCENT (BEAKER) (test 0 % grcs=417) NEUTROPHILS ABSOLUTE COUNT (BEAKER) (test 10.40 K/ L 1.80-8.00 nwec=928) LYMPHOCYTES ABSOLUTE COUNT (BEAKER) (test 0.95 K/ L 1.48-4.50 ofep=564) MONOCYTES ABSOLUTE COUNT (BEAKER) (test 0.20 K/ L 0.00-1.30 mqef=521) EOSINOPHILS ABSOLUTE COUNT (BEAKER) (test 0.02 K/ L 0.00-0.50 volg=085) BASOPHILS ABSOLUTE COUNT (BEAKER) (test 0.02 K/ L 0.00-0.20 hkhd=627) 0.00PT/[id number] 04:25:00 Test Item Value Reference Range Comments PROTIME (BEAKER) (test sdxt=110) 13.7 seconds 11.7-14.7 INR (BEAKER) (test rlzc=685) 1.1 <=5.9 PARTIAL THROMBOPLASTIN TIME (BEAKER) (test 32.8 seconds 22.5-36.0 cuvy=791) RECOMMENDED COUMADIN/WARFARIN INR THERAPY RANGESSTANDARD DOSE: 2.0 - 3.0 Includes: PROPHYLAXIS forvenous thrombosis, systemic embolization; TREATMENT for venous thrombosis and/or pulmonary embolus.HIGH RISK: Target INR is 2.5-3.5 for patients with mechanical heart valves.POCT-GLUCOSE [id number] 02:47:00 Test Item Value Reference Range Comments POC-GLUCOSE METER (BEAKER) 278 mg/dL 70-110 TESTED AT [address] (test lwza=2890) [place] [id number] POCT-GLUCOSE [id number] 22:12:00 Test Item Value Reference Range Comments POC-GLUCOSE METER (BEAKER) 258 mg/dL 70-110 TESTED AT [address] (test zcci=4426) [place] [id number] 15:44:00 Test Item Value Reference Range Comments MAGNESIUM (BEAKER) (test 2.1 mg/dL 1.6-2.6 Specimen slightly hemolyzed bhci=312) [id number] 15:44:00 Test Item Value Reference Range Comments PHOSPHORUS (BEAKER) (test 2.9 mg/dL 2.3-4.7 Specimen slightly hemolyzed ozoo=131) BASIC METABOLIC [id number] 15:44:00 Test Item Value Reference Range Comments SODIUM (BEAKER) (test 137 meq/L 136-145 ddpb=908) POTASSIUM (BEAKER) (test 4.4 meq/L 3.5-5.1 Specimen slightly upmy=528) hemolyzed CHLORIDE (BEAKER) (test 99 meq/L 98-107 qzye=615) CO2 (BEAKER) (test 27 meq/L 22-29 uaai=847) BLOOD UREA NITROGEN 13 mg/dL 7-21 (BEAKER) (test thhz=644) CREATININE (BEAKER) (test 0.96 mg/dL 0.57-1.25 Specimen slightly obfi=401) hemolyzed GLUCOSE RANDOM (BEAKER) 250 mg/dL 70-105 (test bwth=715) CALCIUM (BEAKER) (test 9.6 mg/dL 8.4-10.2 vqgo=860) EGFR (BEAKER) (test 70 mL/min/1.73 sq m ESTIMATED GFR IS NOT bcrp=6673) ACCURATE CREATININE CLEARANCE IN PREDICTING GLOMERULAR FILTRATION RATE. ESTIMATED GFR IS NOT APPLICABLE FOR DIALYSIS PATIENTS. CBC WITH PLATELET COUNT + MANUAL [id number] 15:39:00 Test Item Value Reference Range Comments WHITE BLOOD CELL COUNT (BEAKER) (test edob=526) 9.5 K/ L 4.0-10.0 RED BLOOD CELL COUNT (BEAKER) (test hvhk=595) 4.18 M/ L 4.00-5.00 HEMOGLOBIN (BEAKER) (test efdg=542) 14.0 GM/DL 12.0-15.0 HEMATOCRIT (BEAKER) (test rhmq=280) 40.7 % 36.0-45.0 MEAN CORPUSCULAR VOLUME (BEAKER) (test quct=278) 97.3 fL 82.0-99.0 MEAN CORPUSCULAR HEMOGLOBIN (BEAKER) (test 33.4 pg 27.0-33.0 bdfb=520) MEAN CORPUSCULAR HEMOGLOBIN CONC (BEAKER) (test 34.3 GM/DL 32.0-36.0 lfvf=077) RED CELL DISTRIBUTION WIDTH (BEAKER) (test 12.6 % 10.3-14.2 apgu=790) PLATELET COUNT (BEAKER) (test snvo=403) 253 K/CU MM 150-430 MEAN PLATELET VOLUME (BEAKER) (test jout=875) 8.1 fL 6.5-10.5 NUCLEATED RED BLOOD CELLS (BEAKER) (test 0 /100 WBC 0-0 itqj=784) NEUTROPHILS RELATIVE PERCENT (BEAKER) (test 91 % vssl=248) LYMPHOCYTES RELATIVE PERCENT (BEAKER) (test 8 % vicf=755) MONOCYTES RELATIVE PERCENT (BEAKER) (test 1 % bhoe=262) EOSINOPHILS RELATIVE PERCENT (BEAKER) (test 0 % asml=975) BASOPHILS RELATIVE PERCENT (BEAKER) (test 0 % vkah=587) NEUTROPHILS ABSOLUTE COUNT (BEAKER) (test 8.66 K/ L 1.80-8.00 rpqz=702) LYMPHOCYTES ABSOLUTE COUNT (BEAKER) (test 0.78 K/ L 1.48-4.50 bngf=572) MONOCYTES ABSOLUTE COUNT (BEAKER) (test 0.07 K/ L 0.00-1.30 xfpw=784) EOSINOPHILS ABSOLUTE COUNT (BEAKER) (test 0.01 K/ L 0.00-0.50 mqqf=801) BASOPHILS ABSOLUTE COUNT (BEAKER) (test 0.01 K/ L 0.00-0.20 dvsa=849) [id number] 15:39:00 Test Item Value Reference Range Comments PROTIME (BEAKER) (test cxcv=281) 12.7 seconds 11.7-14.7 INR (BEAKER) (test feqv=761) 1.0 <=5.9 PARTIAL THROMBOPLASTIN TIME (BEAKER) (test 32.8 seconds 22.5-36.0 cbel=547) RECOMMENDED COUMADIN/WARFARIN INR THERAPY RANGESSTANDARD DOSE: 2.0 - 3.0 Includes: PROPHYLAXIS forvenous thrombosis, systemic embolization; TREATMENT for venous thrombosis and/or pulmonary embolus.HIGH RISK: Target INR is 2.5-3.5 for patients with mechanical heart valves.
== END 2019-02-06 19:21 | disposition home or self-care (01) ==
LOC: ER 15:29
PROC: 2Y41X5Z Packing of Nasal Region using Packing Material (ICD-10-PCS; principal; 2019-02-06)
DX: R04.0 Epistaxis (principal); I10 Essential (primary) hypertension; I48.91 Unspecified atrial fibrillation; Z79.01 Long term (current) use of anticoagulants; Z88.5 Allergy status to narcotic agent; Z91.048 Other nonmedicinal substance allergy status
CPT/HCPCS: 30901; 36415; 80048; 83880; 84484; 85025; 85610; 99284

== ENCOUNTER 2019-02-07 16:59 | Emergency (ER) | payer OTHER ==
--- NOTE | 2019-02-07 18:10 | ER ---
Nurse's Notes [facility] Name: Christa Ayala Age: 73 yrs Sex: Female : 1945 Arrival Date: 02/07/2019 Time: 17:02 Bed 5 Private MD: Diagnosis: Epistaxis-Nasal tampon removal Presentation: 02/07 17:18 Presenting complaint: Child states: pt had rhino rocket placed to left nostril iw yesterday, was told to have it removed today. Transition of care: patient was not received from another setting of care. Onset of symptoms was February 06, 2019. Risk Assessment: Do you want to hurt yourself or someone else? Patient reports no desire to harm self or others. Initial Sepsis Screen: Does the patient meet any 2 criteria? No. Patient's initial sepsis screen is negative. Does the patient have a suspected source of infection? No. Patient's initial sepsis screen is negative. Care prior to arrival: rhino rocket placed to left nostril. 17:18 Method Of Arrival: Wheelchair iw 17:18 Acuity: SONYA 4 iw Historical: - Allergies: 17:21 Codeine; iw 17:21 Demerol; iw 17:21 Iodine; iw - Home Meds: 17:21 acetaminophen 325 mg Oral tab 1 -2 tabs every 4-6 hours for Pain [Active]; aspirin 81 iw mg Oral TbEC 1 tab once daily [Active]; atorvastatin 40 mg Oral tab 1 tab nightly [Active]; bumetanide 1 mg Oral tab 1 tab 2 times per day [Active]; carvedilol 6.25 mg Oral tab 1 tab 2 times per day [Active]; digoxin 125 mcg Oral tab 1 tab once daily [Active]; escitalopram oxalate 10 mg Oral tab 1 tab once daily [Active]; glimepiride 1 mg Oral tab 1 tab once daily [Active]; isosorbide mononitrate 30 mg Oral Tb24 1 tab once daily [Active]; metformin 1,000 mg Oral tab 1 tab 2 times per day [Active]; pantoprazole 40 mg Oral TbEC 1 tab once daily [Active]; Plavix 75 mg Oral tab 1 tab once daily [Active]; - PMHx: 17:21 Anemia; Atrial Fib; CHF; COPD; Diabetes - NIDDM; Emphysema; enlarged aorta; GERD; High iw Cholesterol; Hypertension; Myocardial infarction; - Immunization history:: Adult Immunizations not up to date. - Social history:: Smoking status: Patient/guardian denies using tobacco. - Ebola Screening: : Patient negative for fever greater than or equal to 101.5 degrees Fahrenheit, and additional compatible Ebola Virus Disease symptoms Patient denies exposure to infectious person Patient denies travel to an Ebola-affected area in the 21 days before illness onset No symptoms or risks identified at this time. Screenin:15 Abuse screen: Denies threats or abuse. Denies injuries from another. Nutritional jl7 screening: No deficits noted. Tuberculosis screening: No symptoms or risk factors identified. Fall Risk None identified. Assessment: 17:15 General: Appears in no apparent distress. uncomfortable, Behavior is calm, cooperative, jl7 appropriate for age. Pain: Denies pain. Neuro: Level of Consciousness is awake, alert, obeys commands, Oriented to person, place, time, situation. Cardiovascular: Patient's skin is warm and dry. Respiratory: Airway is patent Respiratory effort is even, unlabored, Respiratory pattern is regular, symmetrical. EENT: Nares Rhino rocket noted to left nare. Derm: Skin is pink, warm \T\ dry. 18:15 Reassessment: Patient appears in no apparent distress at this time. No changes from jl7 previously documented assessment. Patient and/or family updated on plan of care and expected duration. Pain level reassessed. Patient is alert, oriented x 3, equal unlabored respirations, skin warm/dry/pink. Patient denies pain at this time. Vital Signs: 17:21 BP 150 / 105; Pulse 99; Resp 20 S; Temp 98.0; Pulse Ox 100% on 2 lpm NC; ED Course: 17:02 Patient arrived in ED. iw 17:13 Molina Dill MD is Attending Physician. kdr 17:15 Calvin Gill RN is Primary Nurse. jl7 17:15 Patient has correct armband on for positive identification. Bed in low position. Call jl7 light in reach. Side rails up X 1. Pulse ox on. NIBP on. 17:20 Triage completed. iw 17:23 Arm band placed on. iw 17:23 Rhino rocket removed from left nare by Dr. Dill. jl7 18:08 Gloria Carlos MD is Referral Physician. kdr 18:26 Patient did not have IV access during this emergency room visit. jl7 Administered Medications: No medications were administered Outcome: 18:09 Discharge ordered by . kdr 18:26 Discharged to home via wheelchair, with family. jl7 18:26 Condition: stable 18:26 Discharge instructions given to patient, family, Instructed on discharge instructions, follow up and referral plans. Demonstrated understanding of instructions, follow-up care. 18:27 Patient left the ED. jl7 Signatures: Molina Dill MD MD kdr Annette Ferguson, RN RN iw Calvin Gill RN RN jl7
--- NOTE | 2019-02-07 18:10 | EDPHYS ---
Physician Documentation [facility] Name: Christa Ayala Age: 73 yrs Sex: Female : 1945 Arrival Date: 02/07/2019 Time: 17:02 Bed 5 Private MD: ED Physician Molina Dill HPI: 02/07 18:12 This 73 yrs old Black Female presents to ER via Wheelchair with complaints of Removal kdr of Rhino Rocket. 18:12 The patient presents with a nose bleed, that is apparently anterior. Onset: The kdr symptoms/episode began/occurred yesterday. The patient was seen in this ED yesteday and had a Rhino-Rocket placed in the left nare. She was asked to come back today for removal. She has not had any complication from the placement and no further bleeding. She is otherwise stable and without c/o. Historical: - Allergies: 17:21 Codeine; iw 17:21 Demerol; iw 17:21 Iodine; iw - Home Meds: 17:21 acetaminophen 325 mg Oral tab 1 -2 tabs every 4-6 hours for Pain [Active]; aspirin 81 iw mg Oral TbEC 1 tab once daily [Active]; atorvastatin 40 mg Oral tab 1 tab nightly [Active]; bumetanide 1 mg Oral tab 1 tab 2 times per day [Active]; carvedilol 6.25 mg Oral tab 1 tab 2 times per day [Active]; digoxin 125 mcg Oral tab 1 tab once daily [Active]; escitalopram oxalate 10 mg Oral tab 1 tab once daily [Active]; glimepiride 1 mg Oral tab 1 tab once daily [Active]; isosorbide mononitrate 30 mg Oral Tb24 1 tab once daily [Active]; metformin 1,000 mg Oral tab 1 tab 2 times per day [Active]; pantoprazole 40 mg Oral TbEC 1 tab once daily [Active]; Plavix 75 mg Oral tab 1 tab once daily [Active]; - PMHx: 17:21 Anemia; Atrial Fib; CHF; COPD; Diabetes - NIDDM; Emphysema; enlarged aorta; GERD; High iw Cholesterol; Hypertension; Myocardial infarction; - Immunization history:: Adult Immunizations not up to date. - Social history:: Smoking status: Patient/guardian denies using tobacco. - Ebola Screening: : Patient negative for fever greater than or equal to 101.5 degrees Fahrenheit, and additional compatible Ebola Virus Disease symptoms Patient denies exposure to infectious person Patient denies travel to an Ebola-affected area in the 21 days before illness onset No symptoms or risks identified at this time. ROS: 18:12 Constitutional: Negative for fever, chills, and weight loss, Eyes: Negative for injury, kdr pain, redness, and discharge, Neck: Negative for injury, pain, and swelling. 18:12 ENT: Positive for Rhino-rocket in the left nare. Exam: 02/08 07:07 Constitutional: This is a well developed, well nourished patient who is awake, alert, kdr and in no acute distress. ENT: The patient has a Rhino-rocket in place and good position on the left nare. There does not appear to have been any ongoing bleeding since it was instilled.. Vital Signs: 02/07 17:21 BP 150 / 105; Pulse 99; Resp 20 S; Temp 98.0; Pulse Ox 100% on 2 lpm NC; iw MDM: 18:09 Patient medically screened. kdr 02/08 07:07 Data reviewed: vital signs, nurses notes. Counseling: I had a detailed discussion with kdr the patient and/or guardian regarding: the historical points, exam findings, and any diagnostic results supporting the discharge/admit diagnosis, the need for outpatient follow up. Administered Medications: No medications were administered Disposition: 02/07/19 18:09 Discharged to Home. Impression: Epistaxis - Nasal tampon removal. - Condition is Stable. - Discharge Instructions: Nosebleed, [id number]. - Medication Reconciliation Form, Thank You Letter form. - Follow up: Private Physician; When: 2 - 3 days; Reason: If symptoms return, Further diagnostic work-up, Recheck today's complaints, Continuance of care, Re-evaluation by your physician. Follow up: Gloria Carlos MD; When: 1 - 2 days; Reason: If symptoms return, Further diagnostic work-up, Recheck today's complaints, Continuance of care, Re-evaluation by your physician. - Problem is an ongoing problem. - Symptoms have improved. Signatures: Molina Dill MD MD kdr Annette Ferguson RN RN iw Calvin Gill RN RN jl7 Corrections: (The following items were deleted from the chart) 02/07 18:27 18:09 02/07/2019 18:09 Discharged to Home. Impression: Epistaxis - Nasal tampon jl7 removal. Condition is Stable. Forms are Medication Reconciliation Form, Thank You Letter, Antibiotic Education, Prescription Opioid Use. Follow up: Private Physician; When: 2 - 3 days; Reason: If symptoms return, Further diagnostic work-up, Recheck today's complaints, Continuance of care, Re-evaluation by your physician. Follow up: Gloria Carlos; When: 1 - 2 days; Reason: If symptoms return, Further diagnostic work-up, Recheck today's complaints, Continuance of care, Re-evaluation by your physician. Problem is an ongoing problem. Symptoms have improved. kdr
[2019-02-07 18:49] VITALS: BP 150/105; TEMP 98; O2SAT 100
--- OUTSIDE RECORDS SUMMARY | 2019-02-12 02:13 | XMS REPORT ---
:1945 [facility] [address] [place] [id number] Care Team Providers Name Role Phone PETRA [...] Value Reference Range Comments MAGNESIUM (BEAKER) (test dirx=787) 1.9 mg/dL 1.6-2.6 BASIC METABOLIC [id number] 06:43:00 Test Item Value Reference Range Comments SODIUM (BEAKER) (test 140 meq/L 136-145 kitc=213) POTASSIUM (BEAKER) (test 4.2 meq/L 3.5-5.1 otpx=573) CHLORIDE (BEAKER) (test 106 meq/L 98-107 mslr=802) CO2 (BEAKER) (test 28 meq/L 22-29 qezb=698) BLOOD UREA NITROGEN 33 mg/dL 7-21 (BEAKER) (test mvks=535) CREATININE (BEAKER) (test 1.51 mg/dL 0.57-1.25 huag=537) GLUCOSE RANDOM (BEAKER) 77 mg/dL 70-105 (test ojow=361) CALCIUM (BEAKER) (test 9.5 mg/dL 8.4-10.2 hxol=153) EGFR (BEAKER) (test 41 mL/min/1.73 sq m ESTIMATED GFR IS NOT kkab=3914) ACCURATE CREATININE CLEARANCE IN PREDICTING GLOMERULAR FILTRATION RATE. ESTIMATED GFR IS NOT APPLICABLE FOR DIALYSIS PATIENTS. B-TYPE NATRIURETIC FACTOR (BNP)2019-01-24 06:12:00 Test Item Value Reference Range Comments B-TYPE NATRIURETIC PEPTIDE (BEAKER) (test 1700 pg/mL 0-100 vnss=515) OXYGEN SATURATION, [id number] 06:04:00 Test Item Value Reference Range Comments O2 SATURATION (MEASURED) (BEAKER) (test getx=9754) 98.2 % CBC W/PLT COUNT & AUTO [id number] 05:55:00 Test Item Value Reference Range Comments WHITE BLOOD CELL COUNT (BEAKER) (test hrgw=509) 5.5 K/ L 3.5-10.5 RED BLOOD CELL COUNT (BEAKER) (test srdy=046) 2.53 M/ L 3.93-5.22 HEMOGLOBIN (BEAKER) (test qpri=378) 8.3 GM/DL 11.2-15.7 HEMATOCRIT (BEAKER) (test nvpi=687) 27.4 % 34.1-44.9 MEAN CORPUSCULAR VOLUME (BEAKER) (test oqjz=184) 108.3 fL 79.4-94.8 MEAN CORPUSCULAR HEMOGLOBIN (BEAKER) (test 32.8 pg 25.6-32.2 iary=410) MEAN CORPUSCULAR HEMOGLOBIN CONC (BEAKER) (test 30.3 GM/DL 32.2-35.5 orme=398) RED CELL DISTRIBUTION WIDTH (BEAKER) (test 13.4 % 11.7-14.4 tsjz=844) PLATELET COUNT (BEAKER) (test fdvw=324) 243 K/CU MM 150-450 MEAN PLATELET VOLUME (BEAKER) (test ryhd=896) 9.9 fL 9.4-12.3 NUCLEATED RED BLOOD CELLS (BEAKER) (test 0 /100 WBC 0-0 sbsh=010) NEUTROPHILS RELATIVE PERCENT (BEAKER) (test 72 % qwrk=233) LYMPHOCYTES RELATIVE PERCENT (BEAKER) (test 16 % vrem=424) MONOCYTES RELATIVE PERCENT (BEAKER) (test 7 % vdzq=867) EOSINOPHILS RELATIVE PERCENT (BEAKER) (test 4 % xgnm=082) BASOPHILS RELATIVE PERCENT (BEAKER) (test 1 % bhyi=550) NEUTROPHILS ABSOLUTE COUNT (BEAKER) (test 3.94 K/ L 1.56-6.13 ujmo=074) LYMPHOCYTES ABSOLUTE COUNT (BEAKER) (test 0.85 K/ L 1.18-3.74 nwsg=336) MONOCYTES ABSOLUTE COUNT (BEAKER) (test 0.36 K/ L 0.24-0.36 wfou=306) EOSINOPHILS ABSOLUTE COUNT (BEAKER) (test 0.24 K/ L 0.04-0.36 gjty=515) BASOPHILS ABSOLUTE COUNT (BEAKER) (test 0.05 K/ L 0.01-0.08 foia=805) IMMATURE GRANULOCYTES-RELATIVE PERCENT (BEAKER) 0 % 0-1 (test fkpn=8723) URINE PROTEIN ELECTROPHORESIS, [id number] 15:25:00 Test Item Value Reference Range Comments PROTEIN, URINE (BEAKER) (test 10 mg/dL 0-14 kmur=2463) ALBUMIN URINE ELP (BEAKER) 51.2 % (test bnig=4011) GAMMA GLOBULIN URINE (BEAKER) 48.8 % (test unfy=5471) UPEP, ID-438 (BEAKER) (test Urine protein study consistent njfa=0741) with glomerular dysfunction. No monoclonal bands detected. [id number] (BEAKER) Анна Encarnacion MD (electronic (test kzod=0942) signature) PROTEIN ELECTROPHORESIS, [id number] 13:35:00 Test Item Value Reference Range Comments ALBUMIN FRACTION (BEAKER) 3.5 g/dL 3.5-5.5 (test mhga=939) ALPHA 1 FRACTION (BEAKER) 0.3 g/dL 0.2-0.4 (test klkd=048) ALPHA 2 FRACTION (BEAKER) 0.7 g/dL 0.5-0.9 (test etln=871) BETA FRACTION (BEAKER) 0.9 g/dL 0.6-1.1 (test gcbc=666) GAMMA GLOBULIN FRACTION 1.6 g/dL 0.7-1.7 (BEAKER) (test fmfo=992) INTERPRETATION-119 (BEAKER) Normal electrophoretic pattern. (test jade=3082) [id number] Анна Encarnacion MD (electronic (BEAKER) (test gbpd=5570) signature) PROTEIN TOTAL SERUM, SPEP 7.0 gm/dL 6.0-8.3 (BEAKER) (test ojgu=2686) [id number] 07:25:00 Test Item Value Reference Range Comments PHOSPHORUS (BEAKER) (test trzt=788) 3.5 mg/dL 2.3-4.7 [id number] 07:25:00 Test Item Value Reference Range Comments MAGNESIUM (BEAKER) (test zvgb=696) 2.0 mg/dL 1.6-2.6 BASIC METABOLIC [id number] 07:25:00 Test Item Value Reference Range Comments SODIUM (BEAKER) (test 139 meq/L 136-145 hvgi=476) POTASSIUM (BEAKER) (test 4.1 meq/L 3.5-5.1 uqdj=753) CHLORIDE (BEAKER) (test 105 meq/L 98-107 votg=302) CO2 (BEAKER) (test 27 meq/L 22-29 hkjz=757) BLOOD UREA NITROGEN 36 mg/dL 7-21 (BEAKER) (test ipvl=161) CREATININE (BEAKER) (test 1.64 mg/dL 0.57-1.25 inzy=675) GLUCOSE RANDOM (BEAKER) 86 mg/dL 70-105 (test mfgk=033) CALCIUM (BEAKER) (test 9.3 mg/dL 8.4-10.2 zpqy=706) EGFR (BEAKER) (test 37 mL/min/1.73 sq m ESTIMATED GFR IS NOT sono=4326) ACCURATE CREATININE CLEARANCE IN PREDICTING GLOMERULAR FILTRATION RATE. ESTIMATED GFR IS NOT APPLICABLE FOR DIALYSIS PATIENTS. B-TYPE NATRIURETIC FACTOR (BNP)2019-01-23 06:22:00 Test Item Value Reference Range Comments B-TYPE NATRIURETIC PEPTIDE (BEAKER) (test 841 pg/mL 0-100 akde=822) CALCIUM, [id number] 06:06:00 Test Item Value Reference Range Comments CALCIUM IONIZED (BEAKER) (test ucap=009) 1.24 mmol/L 1.12-1.27 PH, BLOOD (BEAKER) (test nwbs=3047) 7.39 OXYGEN SATURATION, [id number] 06:05:00 Test Item Value Reference Range Comments O2 SATURATION (MEASURED) (BEAKER) (test zmam=9809) 93.6 % CBC W/PLT COUNT & AUTO [id number] 05:54:00 Test Item Value Reference Range Comments WHITE BLOOD CELL COUNT (BEAKER) (test bhbn=043) 5.4 K/ L 3.5-10.5 RED BLOOD CELL COUNT (BEAKER) (test pzpt=260) 2.56 M/ L 3.93-5.22 HEMOGLOBIN (BEAKER) (test etln=175) 8.5 GM/DL 11.2-15.7 HEMATOCRIT (BEAKER) (test evho=303) 27.8 % 34.1-44.9 MEAN CORPUSCULAR VOLUME (BEAKER) (test gcen=303) 108.6 fL 79.4-94.8 MEAN CORPUSCULAR HEMOGLOBIN (BEAKER) (test 33.2 pg 25.6-32.2 xcdu=195) MEAN CORPUSCULAR HEMOGLOBIN CONC (BEAKER) (test 30.6 GM/DL 32.2-35.5 uiem=211) RED CELL DISTRIBUTION WIDTH (BEAKER) (test 13.2 % 11.7-14.4 opmz=019) PLATELET COUNT (BEAKER) (test dztn=504) 251 K/CU MM 150-450 MEAN PLATELET VOLUME (BEAKER) (test uuzh=104) 9.4 fL 9.4-12.3 NUCLEATED RED BLOOD CELLS (BEAKER) (test 0 /100 WBC 0-0 hnbd=594) NEUTROPHILS RELATIVE PERCENT (BEAKER) (test 70 % abbk=202) LYMPHOCYTES RELATIVE PERCENT (BEAKER) (test 16 % dvon=859) MONOCYTES RELATIVE PERCENT (BEAKER) (test 7 % xyoy=094) EOSINOPHILS RELATIVE PERCENT (BEAKER) (test 6 % bfws=601) BASOPHILS RELATIVE PERCENT (BEAKER) (test 1 % pmdj=160) NEUTROPHILS ABSOLUTE COUNT (BEAKER) (test 3.75 K/ L 1.56-6.13 gnzk=898) LYMPHOCYTES ABSOLUTE COUNT (BEAKER) (test 0.88 K/ L 1.18-3.74 vtwc=940) MONOCYTES ABSOLUTE COUNT (BEAKER) (test 0.35 K/ L 0.24-0.36 aidb=894) EOSINOPHILS ABSOLUTE COUNT (BEAKER) (test 0.30 K/ L 0.04-0.36 wobk=317) BASOPHILS ABSOLUTE COUNT (BEAKER) (test 0.05 K/ L 0.01-0.08 mywg=212) IMMATURE GRANULOCYTES-RELATIVE PERCENT (BEAKER) 0 % 0-1 (test mopm=1972) B-TYPE NATRIURETIC FACTOR (BNP)2019-01-22 06:13:00 Test Item Value Reference Range Comments B-TYPE NATRIURETIC PEPTIDE (BEAKER) (test 811 pg/mL 0-100 lqvr=162) [id number] 05:57:00 Test Item Value Reference Range Comments MAGNESIUM (BEAKER) (test qvhg=788) 2.1 mg/dL 1.6-2.6 BASIC METABOLIC [id number] 05:57:00 Test Item Value Reference Range Comments SODIUM (BEAKER) (test 138 meq/L 136-145 ukcz=728) POTASSIUM (BEAKER) (test 4.2 meq/L 3.5-5.1 njvb=522) CHLORIDE (BEAKER) (test 104 meq/L 98-107 vvkl=495) CO2 (BEAKER) (test 26 meq/L 22-29 fwbe=843) BLOOD UREA NITROGEN 36 mg/dL 7-21 (BEAKER) (test wybc=881) CREATININE (BEAKER) (test 1.92 mg/dL 0.57-1.25 kxtn=412) GLUCOSE RANDOM (BEAKER) 82 mg/dL 70-105 (test aowv=405) CALCIUM (BEAKER) (test 9.6 mg/dL 8.4-10.2 ycfm=454) EGFR (BEAKER) (test 31 mL/min/1.73 sq m ESTIMATED GFR IS NOT kcyj=3374) ACCURATE CREATININE CLEARANCE IN PREDICTING GLOMERULAR FILTRATION RATE. ESTIMATED GFR IS NOT APPLICABLE FOR DIALYSIS PATIENTS. OXYGEN SATURATION, [id number] 05:47:00 Test Item Value Reference Range Comments O2 SATURATION (MEASURED) (BEAKER) (test wzkm=0066) 34.2 % CBC W/PLT COUNT & AUTO [id number] 05:31:00 Test Item Value Reference Range Comments WHITE BLOOD CELL COUNT (BEAKER) (test aatc=658) 5.8 K/ L 3.5-10.5 RED BLOOD CELL COUNT (BEAKER) (test aeso=662) 2.63 M/ L 3.93-5.22 HEMOGLOBIN (BEAKER) (test dslh=451) 8.9 GM/DL 11.2-15.7 HEMATOCRIT (BEAKER) (test nzty=405) 28.3 % 34.1-44.9 MEAN CORPUSCULAR VOLUME (BEAKER) (test ftga=151) 107.6 fL 79.4-94.8 MEAN CORPUSCULAR HEMOGLOBIN (BEAKER) (test 33.8 pg 25.6-32.2 lvhc=444) MEAN CORPUSCULAR HEMOGLOBIN CONC (BEAKER) (test 31.4 GM/DL 32.2-35.5 vhrz=774) RED CELL DISTRIBUTION WIDTH (BEAKER) (test 13.2 % 11.7-14.4 upel=887) PLATELET COUNT (BEAKER) (test eqfr=208) 263 K/CU MM 150-450 MEAN PLATELET VOLUME (BEAKER) (test atoa=018) 9.3 fL 9.4-12.3 NUCLEATED RED BLOOD CELLS (BEAKER) (test 0 /100 WBC 0-0 gbfh=152) NEUTROPHILS RELATIVE PERCENT (BEAKER) (test 67 % udod=564) LYMPHOCYTES RELATIVE PERCENT (BEAKER) (test 19 % iwcz=611) MONOCYTES RELATIVE PERCENT (BEAKER) (test 6 % jxct=807) EOSINOPHILS RELATIVE PERCENT (BEAKER) (test 6 % ujcq=458) BASOPHILS RELATIVE PERCENT (BEAKER) (test 1 % jwhi=826) NEUTROPHILS ABSOLUTE COUNT (BEAKER) (test 3.93 K/ L 1.56-6.13 jgpp=573) LYMPHOCYTES ABSOLUTE COUNT (BEAKER) (test 1.12 K/ L 1.18-3.74 djfl=902) MONOCYTES ABSOLUTE COUNT (BEAKER) (test 0.36 K/ L 0.24-0.36 uwpw=696) EOSINOPHILS ABSOLUTE COUNT (BEAKER) (test 0.36 K/ L 0.04-0.36 yaxo=325) BASOPHILS ABSOLUTE COUNT (BEAKER) (test 0.06 K/ L 0.01-0.08 djvb=018) IMMATURE GRANULOCYTES-RELATIVE PERCENT (BEAKER) 0 % 0-1 (test uefk=7376) CALCIUM, [id number] 06:00:00 Test Item Value Reference Range Comments CALCIUM IONIZED (BEAKER) (test ocpb=608) 1.19 mmol/L 1.12-1.27 PH, BLOOD (BEAKER) (test niyg=9336) 7.35 OXYGEN SATURATION, [id number] 05:59:00 Test Item Value Reference Range Comments O2 SATURATION (MEASURED) (BEAKER) (test yxxt=3655) 96.0 % B-TYPE NATRIURETIC FACTOR (BNP)2019-01-21 05:31:00 Test Item Value Reference Range Comments B-TYPE NATRIURETIC PEPTIDE (BEAKER) (test 568 pg/mL 0-100 vfwm=332) BASIC METABOLIC [id number] 05:26:00 Test Item Value Reference Range Comments SODIUM (BEAKER) (test 136 meq/L 136-145 dplc=653) POTASSIUM (BEAKER) (test 4.0 meq/L 3.5-5.1 wbti=253) CHLORIDE (BEAKER) (test 102 meq/L 98-107 ecqa=753) CO2 (BEAKER) (test 25 meq/L 22-29 asqk=518) BLOOD UREA NITROGEN 40 mg/dL 7-21 (BEAKER) (test mhez=398) CREATININE (BEAKER) (test 1.89 mg/dL 0.57-1.25 rmvz=304) GLUCOSE RANDOM (BEAKER) 83 mg/dL 70-105 (test eoha=286) CALCIUM (BEAKER) (test 9.2 mg/dL 8.4-10.2 nrai=850) EGFR (BEAKER) (test 32 mL/min/1.73 sq m ESTIMATED GFR IS NOT dvbe=5736) ACCURATE CREATININE CLEARANCE IN PREDICTING GLOMERULAR FILTRATION RATE. ESTIMATED GFR IS NOT APPLICABLE FOR DIALYSIS PATIENTS. CBC W/PLT COUNT & AUTO [id number] 05:13:00 Test Item Value Reference Range Comments WHITE BLOOD CELL COUNT (BEAKER) (test pwso=256) 5.8 K/ L 3.5-10.5 RED BLOOD CELL COUNT (BEAKER) (test kpta=164) 2.59 M/ L 3.93-5.22 HEMOGLOBIN (BEAKER) (test uobd=225) 8.4 GM/DL 11.2-15.7 HEMATOCRIT (BEAKER) (test uvvg=980) 27.6 % 34.1-44.9 MEAN CORPUSCULAR VOLUME (BEAKER) (test vsps=050) 106.6 fL 79.4-94.8 MEAN CORPUSCULAR HEMOGLOBIN (BEAKER) (test 32.4 pg 25.6-32.2 kdmt=741) MEAN CORPUSCULAR HEMOGLOBIN CONC (BEAKER) (test 30.4 GM/DL 32.2-35.5 jgac=097) RED CELL DISTRIBUTION WIDTH (BEAKER) (test 12.9 % 11.7-14.4 uzbr=463) PLATELET COUNT (BEAKER) (test ekma=641) 254 K/CU MM 150-450 MEAN PLATELET VOLUME (BEAKER) (test vdbu=234) 9.7 fL 9.4-12.3 NUCLEATED RED BLOOD CELLS (BEAKER) (test 0 /100 WBC 0-0 ykek=784) NEUTROPHILS RELATIVE PERCENT (BEAKER) (test 72 % ngjn=875) LYMPHOCYTES RELATIVE PERCENT (BEAKER) (test 16 % itjn=150) MONOCYTES RELATIVE PERCENT (BEAKER) (test 6 % eqna=316) EOSINOPHILS RELATIVE PERCENT (BEAKER) (test 5 % dabd=219) BASOPHILS RELATIVE PERCENT (BEAKER) (test 1 % wxep=409) NEUTROPHILS ABSOLUTE COUNT (BEAKER) (test 4.16 K/ L 1.56-6.13 agkm=161) LYMPHOCYTES ABSOLUTE COUNT (BEAKER) (test 0.91 K/ L 1.18-3.74 nrwz=246) MONOCYTES ABSOLUTE COUNT (BEAKER) (test 0.36 K/ L 0.24-0.36 yvga=084) EOSINOPHILS ABSOLUTE COUNT (BEAKER) (test 0.31 K/ L 0.04-0.36 cljc=568) BASOPHILS ABSOLUTE COUNT (BEAKER) (test 0.04 K/ L 0.01-0.08 ezxm=837) IMMATURE GRANULOCYTES-RELATIVE PERCENT (BEAKER) 0 % 0-1 (test jlvf=9940) [id number] 05:49:00 Test Item Value Reference Range Comments PHOSPHORUS (BEAKER) (test lqew=415) 3.9 mg/dL 2.3-4.7 [id number] 05:49:00 Test Item Value Reference Range Comments MAGNESIUM (BEAKER) (test boee=869) 2.0 mg/dL 1.6-2.6 BASIC METABOLIC [id number] 05:49:00 Test Item Value Reference Range Comments SODIUM (BEAKER) (test 137 meq/L 136-145 xgnt=232) POTASSIUM (BEAKER) (test 4.2 meq/L 3.5-5.1 tgcu=129) CHLORIDE (BEAKER) (test 102 meq/L 98-107 cvez=987) CO2 (BEAKER) (test 27 meq/L 22-29 uach=106) BLOOD UREA NITROGEN 45 mg/dL 7-21 (BEAKER) (test igvj=917) CREATININE (BEAKER) (test 1.94 mg/dL 0.57-1.25 yxdi=552) GLUCOSE RANDOM (BEAKER) 105 mg/dL 70-105 (test cyrf=393) CALCIUM (BEAKER) (test 9.2 mg/dL 8.4-10.2 cqjt=220) EGFR (BEAKER) (test 31 mL/min/1.73 sq m ESTIMATED GFR IS NOT kjgo=0745) ACCURATE CREATININE CLEARANCE IN PREDICTING GLOMERULAR FILTRATION RATE. ESTIMATED GFR IS NOT APPLICABLE FOR DIALYSIS PATIENTS. CALCIUM, [id number] 05:41:00 Test Item Value Reference Range Comments CALCIUM IONIZED (BEAKER) (test zvtp=911) 1.22 mmol/L 1.12-1.27 PH, BLOOD (BEAKER) (test bnqr=4499) 7.36 B-TYPE NATRIURETIC FACTOR (BNP)2019-01-20 05:33:00 Test Item Value Reference Range Comments B-TYPE NATRIURETIC PEPTIDE (BEAKER) (test 411 pg/mL 0-100 iaic=835) CBC W/PLT COUNT & AUTO [id number] 05:15:00 Test Item Value Reference Range Comments WHITE BLOOD CELL COUNT (BEAKER) (test evzl=502) 5.5 K/ L 3.5-10.5 RED BLOOD CELL COUNT (BEAKER) (test bjmf=209) 2.46 M/ L 3.93-5.22 HEMOGLOBIN (BEAKER) (test tdho=654) 8.1 GM/DL 11.2-15.7 HEMATOCRIT (BEAKER) (test oafo=788) 26.4 % 34.1-44.9 MEAN CORPUSCULAR VOLUME (BEAKER) (test dpiw=531) 107.3 fL 79.4-94.8 MEAN CORPUSCULAR HEMOGLOBIN (BEAKER) (test 32.9 pg 25.6-32.2 ntde=858) MEAN CORPUSCULAR HEMOGLOBIN CONC (BEAKER) (test 30.7 GM/DL 32.2-35.5 xdrk=689) RED CELL DISTRIBUTION WIDTH (BEAKER) (test 12.8 % 11.7-14.4 ovxs=783) PLATELET COUNT (BEAKER) (test mfhu=667) 236 K/CU MM 150-450 MEAN PLATELET VOLUME (BEAKER) (test beye=949) 9.9 fL 9.4-12.3 NUCLEATED RED BLOOD CELLS (BEAKER) (test 0 /100 WBC 0-0 yzpj=608) NEUTROPHILS RELATIVE PERCENT (BEAKER) (test 71 % qpty=996) LYMPHOCYTES RELATIVE PERCENT (BEAKER) (test 17 % ycpc=940) MONOCYTES RELATIVE PERCENT (BEAKER) (test 7 % usnr=734) EOSINOPHILS RELATIVE PERCENT (BEAKER) (test 4 % jrii=189) BASOPHILS RELATIVE PERCENT (BEAKER) (test 1 % lpij=861) NEUTROPHILS ABSOLUTE COUNT (BEAKER) (test 3.87 K/ L 1.56-6.13 yomt=880) LYMPHOCYTES ABSOLUTE COUNT (BEAKER) (test 0.92 K/ L 1.18-3.74 smag=958) MONOCYTES ABSOLUTE COUNT (BEAKER) (test 0.38 K/ L 0.24-0.36 redn=753) EOSINOPHILS ABSOLUTE COUNT (BEAKER) (test 0.24 K/ L 0.04-0.36 grpf=497) BASOPHILS ABSOLUTE COUNT (BEAKER) (test 0.05 K/ L 0.01-0.08 jktx=019) IMMATURE GRANULOCYTES-RELATIVE PERCENT (BEAKER) 0 % 0-1 (test ftas=0279) OXYGEN SATURATION, [id number] 05:13:00 Test Item Value Reference Range Comments O2 SATURATION (MEASURED) (BEAKER) (test jjwp=9768) 85.5 % CBC W/PLT COUNT & AUTO [id number] 07:13:00 Test Item Value Reference Range Comments WHITE BLOOD CELL COUNT (BEAKER) (test bksw=733) 5.4 K/ L 3.5-10.5 RED BLOOD CELL COUNT (BEAKER) (test wjgb=603) 2.55 M/ L 3.93-5.22 HEMOGLOBIN (BEAKER) (test qmim=531) 8.4 GM/DL 11.2-15.7 HEMATOCRIT (BEAKER) (test qdaq=495) 26.9 % 34.1-44.9 MEAN CORPUSCULAR VOLUME (BEAKER) (test itrp=311) 105.5 fL 79.4-94.8 MEAN CORPUSCULAR HEMOGLOBIN (BEAKER) (test 32.9 pg 25.6-32.2 avfx=610) MEAN CORPUSCULAR HEMOGLOBIN CONC (BEAKER) (test 31.2 GM/DL 32.2-35.5 edgj=771) RED CELL DISTRIBUTION WIDTH (BEAKER) (test 12.9 % 11.7-14.4 rqyl=271) PLATELET COUNT (BEAKER) (test nerv=886) 251 K/CU MM 150-450 MEAN PLATELET VOLUME (BEAKER) (test hqyy=796) 10.3 fL 9.4-12.3 NUCLEATED RED BLOOD CELLS (BEAKER) (test 0 /100 WBC 0-0 qjvt=583) NEUTROPHILS RELATIVE PERCENT (BEAKER) (test 66 % svvq=279) LYMPHOCYTES RELATIVE PERCENT (BEAKER) (test 21 % xbnb=852) MONOCYTES RELATIVE PERCENT (BEAKER) (test 7 % uhfk=621) EOSINOPHILS RELATIVE PERCENT (BEAKER) (test 4 % ufnw=392) BASOPHILS RELATIVE PERCENT (BEAKER) (test 1 % teej=050) NEUTROPHILS ABSOLUTE COUNT (BEAKER) (test 3.55 K/ L 1.56-6.13 fffw=229) LYMPHOCYTES ABSOLUTE COUNT (BEAKER) (test 1.14 K/ L 1.18-3.74 pijl=050) MONOCYTES ABSOLUTE COUNT (BEAKER) (test 0.39 K/ L 0.24-0.36 ilgd=902) EOSINOPHILS ABSOLUTE COUNT (BEAKER) (test 0.20 K/ L 0.04-0.36 vcde=591) BASOPHILS ABSOLUTE COUNT (BEAKER) (test 0.06 K/ L 0.01-0.08 hbvr=174) IMMATURE GRANULOCYTES-RELATIVE PERCENT (BEAKER) 0 % 0-1 (test puoc=8947) [id number] 06:22:00 Test Item Value Reference Range Comments PHOSPHORUS (BEAKER) (test hguf=719) 3.8 mg/dL 2.3-4.7 [id number] 06:22:00 Test Item Value Reference Range Comments MAGNESIUM (BEAKER) (test axqs=343) 2.2 mg/dL 1.6-2.6 COMPREHENSIVE METABOLIC [id number] 06:22:00 Test Item Value Reference Range Comments TOTAL PROTEIN (BEAKER) 7.3 gm/dL 6.0-8.3 (test rpkf=923) ALBUMIN (BEAKER) (test 3.8 g/dL 3.5-5.0 ebqn=4063) ALKALINE PHOSPHATASE 43 U/L 40-150 (BEAKER) (test ymkn=285) BILIRUBIN TOTAL (BEAKER) 0.3 mg/dL 0.2-1.2 (test owfs=905) SODIUM (BEAKER) (test 135 meq/L 136-145 fyse=748) POTASSIUM (BEAKER) (test 4.0 meq/L 3.5-5.1 uggm=044) CHLORIDE (BEAKER) (test 99 meq/L 98-107 tspu=522) CO2 (BEAKER) (test 31 meq/L 22-29 obfk=236) BLOOD UREA NITROGEN 40 mg/dL 7-21 (BEAKER) (test jsgy=854) CREATININE (BEAKER) (test 1.95 mg/dL 0.57-1.25 hrow=149) GLUCOSE RANDOM (BEAKER) 99 mg/dL 70-105 (test jutl=793) CALCIUM (BEAKER) (test 9.9 mg/dL 8.4-10.2 hyuy=091) AST (SGOT) (BEAKER) (test 15 U/L 5-34 dkwh=410) ALT (SGPT) (BEAKER) (test 10 U/L 6-55 ewyj=182) EGFR (BEAKER) (test 31 mL/min/1.73 sq m ESTIMATED GFR IS NOT shci=4019) ACCURATE CREATININE CLEARANCE IN PREDICTING GLOMERULAR FILTRATION RATE. ESTIMATED GFR IS NOT APPLICABLE FOR DIALYSIS PATIENTS. VITAMIN D, [id number] 06:03:00 Test Item Value Reference Range Comments VITAMIN D 25-OH (BEAKER) (test znnm=5868) 42.3 ng/mL 6.6-49.9 Effective 01/12/2017: Reference Range ChangeNew: 6.6-49.9 ng/mL Previous: 13.0 -47.8 ng/mLRecommended Vitamin D Target Range: 30.0-40.0 ng/mLB-TYPE NATRIURETIC FACTOR (BNP)2019-01-19 05:18:00 Test Item Value Reference Range Comments B-TYPE NATRIURETIC PEPTIDE (BEAKER) (test 490 pg/mL 0-100 hzft=993) PTH, [id number] 05:16:00 Test Item Value Reference Range Comments PARATHYROID HORMONE INTACT (BEAKER) (test 151.4 pg/mL 8.5-72.5 pzht=208) CALCIUM, [id number] 04:20:00 Test Item Value Reference Range Comments CALCIUM IONIZED (BEAKER) (test rezi=522) 1.30 mmol/L 1.12-1.27 PH, BLOOD (BEAKER) (test fyga=4505) 7.37 OXYGEN SATURATION, [id number] 04:00:00 Test Item Value Reference Range Comments O2 SATURATION (MEASURED) (BEAKER) (test swty=8294) 86.1 % CREATININE, RANDOM [id number] 12:21:00 Test Item Value Reference Range Comments CREATININE URINE (BEAKER) (test ajbz=669) 110.5 mg/dL Reference Range: No NormalsPROTEIN, RANDOM [id number] 12:21:00 Test Item Value Reference Range Comments PROTEIN, URINE (BEAKER) (test jooj=2572) 14 mg/dL 0-14 SODIUM, RANDOM [id number] 12:21:00 Test Item Value Reference Range Comments SODIUM URINE (BEAKER) (test wizq=915) 34 meq/L Reference Range: No NormalsCALCIUM, [id number] 10:17:00 Test Item Value Reference Range Comments CALCIUM IONIZED (BEAKER) (test qlus=410) 1.29 mmol/L 1.12-1.27 PH, BLOOD (BEAKER) (test bqes=1130) 7.31 OXYGEN SATURATION, [id number] 10:16:00 Test Item Value Reference Range Comments O2 SATURATION (MEASURED) (BEAKER) (test wbdt=3460) 69.6 % POCT-GLUCOSE [id number] 08:28:00 Test Item Value Reference Range Comments POC-GLUCOSE METER (BEAKER) 90 mg/dL 70-110 TESTED AT [facility] [address] [facility] (test rtks=7976) [facility] [address] BASIC METABOLIC [id number] 07:28:00 Test Item Value Reference Range Comments SODIUM (BEAKER) (test 134 meq/L 136-145 cgjt=075) POTASSIUM (BEAKER) (test 4.2 meq/L 3.5-5.1 zekk=168) CHLORIDE (BEAKER) (test 100 meq/L 98-107 iqho=335) CO2 (BEAKER) (test 26 meq/L 22-29 pwph=584) BLOOD UREA NITROGEN 43 mg/dL 7-21 (BEAKER) (test yeag=059) CREATININE (BEAKER) (test 1.95 mg/dL 0.57-1.25 bnqx=344) GLUCOSE RANDOM (BEAKER) 130 mg/dL 70-105 (test hqhj=880) CALCIUM (BEAKER) (test 9.8 mg/dL 8.4-10.2 kmuj=476) EGFR (BEAKER) (test 31 mL/min/1.73 sq m ESTIMATED GFR IS NOT yqnf=2489) ACCURATE CREATININE CLEARANCE IN PREDICTING GLOMERULAR FILTRATION RATE. ESTIMATED GFR IS NOT APPLICABLE FOR DIALYSIS PATIENTS. URIC [id number] 07:10:00 Test Item Value Reference Range Comments URIC ACID (BEAKER) (test epjv=397) 6.4 mg/dL 2.6-7.2 [id number] 07:10:00 Test Item Value Reference Range Comments MAGNESIUM (BEAKER) (test iruz=404) 2.2 mg/dL 1.6-2.6 [id number] 07:10:00 Test Item Value Reference Range Comments PHOSPHORUS (BEAKER) (test rijv=474) 3.7 mg/dL 2.3-4.7 CREATINE KINASE (CK)2019-01-18 07:10:00 Test Item Value Reference Range Comments CREATINE KINASE TOTAL (BEAKER) (test ajmk=330) 46 U/L 29-200 B-TYPE NATRIURETIC FACTOR (BNP)2019-01-18 06:18:00 Test Item Value Reference Range Comments B-TYPE NATRIURETIC PEPTIDE (BEAKER) (test 723 pg/mL 0-100 yqzq=112) CBC W/PLT COUNT & AUTO [id number] 05:54:00 Test Item Value Reference Range Comments WHITE BLOOD CELL COUNT (BEAKER) (test tkkx=740) 5.6 K/ L 3.5-10.5 RED BLOOD CELL COUNT (BEAKER) (test mtle=439) 2.59 M/ L 3.93-5.22 HEMOGLOBIN (BEAKER) (test ntic=508) 8.5 GM/DL 11.2-15.7 HEMATOCRIT (BEAKER) (test xxpb=300) 27.4 % 34.1-44.9 MEAN CORPUSCULAR VOLUME (BEAKER) (test uutz=925) 105.8 fL 79.4-94.8 MEAN CORPUSCULAR HEMOGLOBIN (BEAKER) (test 32.8 pg 25.6-32.2 ddcg=466) MEAN CORPUSCULAR HEMOGLOBIN CONC (BEAKER) (test 31.0 GM/DL 32.2-35.5 hibp=118) RED CELL DISTRIBUTION WIDTH (BEAKER) (test 12.7 % 11.7-14.4 jmnj=988) PLATELET COUNT (BEAKER) (test iibu=033) 240 K/CU MM 150-450 MEAN PLATELET VOLUME (BEAKER) (test njvq=945) 10.2 fL 9.4-12.3 NUCLEATED RED BLOOD CELLS (BEAKER) (test 0 /100 WBC 0-0 nwza=998) NEUTROPHILS RELATIVE PERCENT (BEAKER) (test 71 % vgfq=616) LYMPHOCYTES RELATIVE PERCENT (BEAKER) (test 17 % rckn=204) MONOCYTES RELATIVE PERCENT (BEAKER) (test 8 % thod=736) EOSINOPHILS RELATIVE PERCENT (BEAKER) (test 2 % tefh=046) BASOPHILS RELATIVE PERCENT (BEAKER) (test 1 % espa=817) NEUTROPHILS ABSOLUTE COUNT (BEAKER) (test 4.02 K/ L 1.56-6.13 xadp=854) LYMPHOCYTES ABSOLUTE COUNT (BEAKER) (test 0.97 K/ L 1.18-3.74 aqws=857) MONOCYTES ABSOLUTE COUNT (BEAKER) (test 0.46 K/ L 0.24-0.36 woep=776) EOSINOPHILS ABSOLUTE COUNT (BEAKER) (test 0.12 K/ L 0.04-0.36 ajxg=017) BASOPHILS ABSOLUTE COUNT (BEAKER) (test 0.04 K/ L 0.01-0.08 rwzo=689) IMMATURE GRANULOCYTES-RELATIVE PERCENT (BEAKER) 0 % 0-1 (test gwxs=9203) U/S, RENAL, [id number] 05:23:00H- Dr. Levy/ Marcus Reddy. chano is in network. ppo no referral needed 07/2018cpt 05974 no auth required Reason for exam:->AKIShould this [...] 05:23:17 RAD , CHEST, 1 VIEW, NON [id number] 04:49:00[facility]- Dr. Levy/ Marcus Reddy. chano is in network. ppo no referral needed 07/2018cpt 22011 no auth required Reason for exam:->CHFShould this [...] Maryana Spann Verified Date/Time: 01/18/2019 04:49:09 HEMOGLOBIN [id number] 22:46 :00 Test Item Value Reference Range Comments HEMOGLOBIN A1C (BEAKER) (test nkqw=651) 5.1 % 4.3-6.1 POCT-GLUCOSE [id number] 21:47:00 Test Item Value Reference Range Comments POC-GLUCOSE METER (BEAKER) 163 mg/dL 70-110 TESTED AT [facility] [address] [facility] (test cdha=1330) [facility] [address] CBC W/PLT COUNT & AUTO [id number] 20:11:00 Test Item Value Reference Range Comments WHITE BLOOD CELL COUNT (BEAKER) (test kczf=737) 7.8 K/ L 3.5-10.5 RED BLOOD CELL COUNT (BEAKER) (test oudq=990) 3.01 M/ L 3.93-5.22 HEMOGLOBIN (BEAKER) (test spnx=096) 10.0 GM/DL 11.2-15.7 HEMATOCRIT (BEAKER) (test herk=742) 31.4 % 34.1-44.9 MEAN CORPUSCULAR VOLUME (BEAKER) (test vutj=039) 104.3 fL 79.4-94.8 MEAN CORPUSCULAR HEMOGLOBIN (BEAKER) (test 33.2 pg 25.6-32.2 fpwq=897) MEAN CORPUSCULAR HEMOGLOBIN CONC (BEAKER) (test 31.8 GM/DL 32.2-35.5 uale=896) RED CELL DISTRIBUTION WIDTH (BEAKER) (test 12.9 % 11.7-14.4 zigj=636) PLATELET COUNT (BEAKER) (test nxib=676) 298 K/CU MM 150-450 MEAN PLATELET VOLUME (BEAKER) (test osyk=327) 9.9 fL 9.4-12.3 NUCLEATED RED BLOOD CELLS (BEAKER) (test 0 /100 WBC 0-0 pkux=125) NEUTROPHILS RELATIVE PERCENT (BEAKER) (test 82 % bdds=334) LYMPHOCYTES RELATIVE PERCENT (BEAKER) (test 11 % abvr=695) MONOCYTES RELATIVE PERCENT (BEAKER) (test 5 % msah=283) EOSINOPHILS RELATIVE PERCENT (BEAKER) (test 1 % sxpd=641) BASOPHILS RELATIVE PERCENT (BEAKER) (test 1 % davb=779) NEUTROPHILS ABSOLUTE COUNT (BEAKER) (test 6.35 K/ L 1.56-6.13 leps=139) LYMPHOCYTES ABSOLUTE COUNT (BEAKER) (test 0.87 K/ L 1.18-3.74 nadb=751) MONOCYTES ABSOLUTE COUNT (BEAKER) (test 0.39 K/ L 0.24-0.36 iobf=627) EOSINOPHILS ABSOLUTE COUNT (BEAKER) (test 0.08 K/ L 0.04-0.36 mrjo=026) BASOPHILS ABSOLUTE COUNT (BEAKER) (test 0.04 K/ L 0.01-0.08 wisk=358) IMMATURE GRANULOCYTES-RELATIVE PERCENT (BEAKER) 0 % 0-1 (test yruf=8972) POCT-GLUCOSE [id number] 18:09:00 Test Item Value Reference Range Comments POC-GLUCOSE METER (BEAKER) 140 mg/dL 70-110 TESTED AT [address] (test huub=5292) [facility] [address] OXYGEN SATURATION, [id number] 15:05:00 Test Item Value Reference Range Comments O2 SATURATION (MEASURED) (BEAKER) (test akha=3746) 43.7 % [id number] 13:15:00 Test Item Value Reference Range Comments FERRITIN (BEAKER) (test exou=985) 257 ng/mL 5-275 VITAMIN B12 AND [id number] 13:15:00 Test Item Value Reference Range Comments VITAMIN B12 (BEAKER) (test mslz=756) 1120 pg/mL 213-816 FOLATE (BEAKER) (test vtlo=683) 18.7 ng/mL >=7.0 COMPREHENSIVE METABOLIC [id number] 12:50:00 Test Item Value Reference Range Comments TOTAL PROTEIN (BEAKER) 8.3 gm/dL 6.0-8.3 (test pfxh=178) ALBUMIN (BEAKER) (test 4.3 g/dL 3.5-5.0 pnty=7871) ALKALINE PHOSPHATASE 52 U/L 40-150 (BEAKER) (test piob=905) BILIRUBIN TOTAL (BEAKER) 0.3 mg/dL 0.2-1.2 (test nzwi=035) SODIUM (BEAKER) (test 137 meq/L 136-145 gqmk=448) POTASSIUM (BEAKER) (test 4.9 meq/L 3.5-5.1 ipnt=170) CHLORIDE (BEAKER) (test 99 meq/L 98-107 ywru=450) CO2 (BEAKER) (test 30 meq/L 22-29 ydda=268) BLOOD UREA NITROGEN 44 mg/dL 7-21 (BEAKER) (test alnt=648) CREATININE (BEAKER) (test 2.12 mg/dL 0.57-1.25 yejn=870) GLUCOSE RANDOM (BEAKER) 110 mg/dL 70-105 (test vzsm=254) CALCIUM (BEAKER) (test 10.6 mg/dL 8.4-10.2 ckpk=435) AST (SGOT) (BEAKER) (test 18 U/L 5-34 twmx=215) ALT (SGPT) (BEAKER) (test 14 U/L 6-55 vsvc=125) EGFR (BEAKER) (test 28 mL/min/1.73 sq m ESTIMATED GFR IS NOT gduo=6665) ACCURATE CREATININE CLEARANCE IN PREDICTING GLOMERULAR FILTRATION RATE. ESTIMATED GFR IS NOT APPLICABLE FOR DIALYSIS PATIENTS. B-TYPE NATRIURETIC FACTOR (BNP)2019-01-17 12:45:00 Test Item Value Reference Range Comments B-TYPE NATRIURETIC PEPTIDE (BEAKER) (test 939 pg/mL 0-100 zfpb=555) IRON, TIBC, % SAT. (WITHOUT FERRITIN)2019-01-17 12:39:00 Test Item Value Reference Range Comments IRON (BEAKER) (test vwqf=444) 56.0 ug/dL 40.0-160.0 TOTAL IRON BINDING CAPACITY (BEAKER) (test 264 ug/dL 250-450 nfmw=163) IRON % SATURATION (2) (BEAKER) (test uvnk=8361) 21 % 20-55 OXYGEN SATURATION, [id number] 12:23:00 Test Item Value Reference Range Comments O2 SATURATION (MEASURED) (BEAKER) (test nvlt=7726) 20.5 % CBC W/PLT COUNT & AUTO [id number] 12:17:00 Test Item Value Reference Range Comments WHITE BLOOD CELL COUNT (BEAKER) (test hwtz=332) 6.1 K/ L 3.5-10.5 RED BLOOD CELL COUNT (BEAKER) (test wmtt=774) 3.09 M/ L 3.93-5.22 HEMOGLOBIN (BEAKER) (test zara=643) 10.1 GM/DL 11.2-15.7 HEMATOCRIT (BEAKER) (test ztoy=870) 32.5 % 34.1-44.9 MEAN CORPUSCULAR VOLUME (BEAKER) (test drwz=122) 105.2 fL 79.4-94.8 MEAN CORPUSCULAR HEMOGLOBIN (BEAKER) (test 32.7 pg 25.6-32.2 ukqu=668) MEAN CORPUSCULAR HEMOGLOBIN CONC (BEAKER) (test 31.1 GM/DL 32.2-35.5 wwmk=584) RED CELL DISTRIBUTION WIDTH (BEAKER) (test 12.9 % 11.7-14.4 kydy=191) PLATELET COUNT (BEAKER) (test qqqj=502) 279 K/CU MM 150-450 MEAN PLATELET VOLUME (BEAKER) (test gxsi=905) 10.0 fL 9.4-12.3 NUCLEATED RED BLOOD CELLS (BEAKER) (test 0 /100 WBC 0-0 rxyq=663) NEUTROPHILS RELATIVE PERCENT (BEAKER) (test 81 % eikj=158) LYMPHOCYTES RELATIVE PERCENT (BEAKER) (test 11 % ayzf=974) MONOCYTES RELATIVE PERCENT (BEAKER) (test 6 % cbin=587) EOSINOPHILS RELATIVE PERCENT (BEAKER) (test 2 % xino=212) BASOPHILS RELATIVE PERCENT (BEAKER) (test 1 % mzug=861) NEUTROPHILS ABSOLUTE COUNT (BEAKER) (test 4.94 K/ L 1.56-6.13 yisd=030) LYMPHOCYTES ABSOLUTE COUNT (BEAKER) (test 0.67 K/ L 1.18-3.74 muff=417) MONOCYTES ABSOLUTE COUNT (BEAKER) (test 0.35 K/ L 0.24-0.36 auyl=173) EOSINOPHILS ABSOLUTE COUNT (BEAKER) (test 0.10 K/ L 0.04-0.36 hldh=574) BASOPHILS ABSOLUTE COUNT (BEAKER) (test 0.05 K/ L 0.01-0.08 npzb=859) IMMATURE GRANULOCYTES-RELATIVE PERCENT (BEAKER) 0 % 0-1 (test yiav=6586) CT, CTA, [id number] 18:12:00[facility]- Dr. Levy/ Marcus Reddy. [facility] is in network. ppo no referral needed 07/2018cpt 77161 no auth required 2018Addendum BeginsREPORT STATUS:A Addendum: I agree with the previously described non vascular findings. Signed: George Rincon MDReport Verified Date/Time: 11/01/2018 18:12:19 Reading Location: [place] [address] Angio Body Reading RoomAddendum EndsFINAL REPORT CT [...] cm in the infrarenal level. In 2017 [facility] examination, the maximum diameter at the diaphragmatic [...] is seen outside the stent, inside the [place] aorta (essentially present Type I endoleak). In [...] An addendum will be dictated by the Judge'S Clerk Radiologist regarding the nonvascular findings. Signed: Bryan Mahajan MDReport Verified Date/Time:10/31/2018 16:01:37 Reading Location: [place] [id number] Cardiology MRI CT, CTA [id number] 18:12:00[facility]- Dr. Levy/ Marcus Reddy. [facility] is in network. ppo no referral needed 07/2018cpt 98190 no auth required 10/2018Addendum BeginsREPORT STATUS:A Addendum: I agree with the previously described non vascular findings. Signed: George Rincon MDReport Verified Date/Time: 11/01/2018 18:12:19 Reading Location: [facility] [address] Angio Body Reading RoomAddendum EndsFINAL REPORT [...] is seen outside the stent, inside the [place] aorta (essentially present Type I endoleak). In [...] An addendum will be dictated by the Judge'S Clerk Radiologist regarding the nonvascular findings. Signed: Bryan Mahajaneport Verified Date/Time:10/31/2018 16:01:37 Reading Location: [place] [address] Cardiology MRI POCT- [id number] 12:24:00 Test Item Value Reference Range Comments POC-CREATININE (BEAKER) 1.6 mg/dL 0.6-1.3 TESTED AT [facility] [address] [facility] (test wxoy=9739) [facility] [address] POC-EGFR (BEAKER) (test 38 mL/min/1.73M2 yssl=9207) B-TYPE NATRIURETIC FACTOR (BNP)2018-10-17 12:58:00 Test Item Value Reference Range Comments B-TYPE NATRIURETIC PEPTIDE (BEAKER) (test 3381 pg/mL 0-100 scrr=666) BASIC METABOLIC [id number] 12:52:00 Test Item Value Reference Range Comments SODIUM (BEAKER) (test 138 meq/L 136-145 zavc=294) POTASSIUM (BEAKER) (test 3.6 meq/L 3.5-5.1 sagv=401) CHLORIDE (BEAKER) (test 100 meq/L 98-107 fkmn=594) CO2 (BEAKER) (test 30 meq/L 22-29 hnby=722) BLOOD UREA NITROGEN 21 mg/dL 7-21 (BEAKER) (test mctv=222) CREATININE (BEAKER) (test 1.49 mg/dL 0.57-1.25 wonq=123) GLUCOSE RANDOM (BEAKER) 182 mg/dL 70-105 (test zqxp=913) CALCIUM (BEAKER) (test 9.7 mg/dL 8.4-10.2 uzbx=880) EGFR (BEAKER) (test 42 mL/min/1.73 sq m ESTIMATED GFR IS NOT zbkq=3081) ACCURATE CREATININE CLEARANCE IN PREDICTING GLOMERULAR FILTRATION RATE. ESTIMATED GFR IS NOT APPLICABLE FOR DIALYSIS PATIENTS. CBC W/PLT COUNT & AUTO [id number] 12:31:00 Test Item Value Reference Range Comments WHITE BLOOD CELL COUNT (BEAKER) (test tqha=788) 5.9 K/ L 3.5-10.5 RED BLOOD CELL COUNT (BEAKER) (test woze=514) 2.76 M/ L 3.93-5.22 HEMOGLOBIN (BEAKER) (test jxud=867) 8.9 GM/DL 11.2-15.7 HEMATOCRIT (BEAKER) (test ljyd=877) 28.3 % 34.1-44.9 MEAN CORPUSCULAR VOLUME (BEAKER) (test oqyw=183) 102.5 fL 79.4-94.8 MEAN CORPUSCULAR HEMOGLOBIN (BEAKER) (test 32.2 pg 25.6-32.2 lepz=042) MEAN CORPUSCULAR HEMOGLOBIN CONC (BEAKER) (test 31.4 GM/DL 32.2-35.5 galf=008) RED CELL DISTRIBUTION WIDTH (BEAKER) (test 12.8 % 11.7-14.4 jmwe=191) PLATELET COUNT (BEAKER) (test lcva=776) 226 K/CU MM 150-450 MEAN PLATELET VOLUME (BEAKER) (test evfr=212) 9.9 fL 9.4-12.3 NUCLEATED RED BLOOD CELLS (BEAKER) (test 0 /100 WBC 0-0 vrnf=520) NEUTROPHILS RELATIVE PERCENT (BEAKER) (test 80 % adqc=452) LYMPHOCYTES RELATIVE PERCENT (BEAKER) (test 12 % zsop=526) MONOCYTES RELATIVE PERCENT (BEAKER) (test 5 % xthf=804) EOSINOPHILS RELATIVE PERCENT (BEAKER) (test 2 % zwbd=069) BASOPHILS RELATIVE PERCENT (BEAKER) (test 1 % vjup=088) NEUTROPHILS ABSOLUTE COUNT (BEAKER) (test 4.75 K/ L 1.56-6.13 vaqg=322) LYMPHOCYTES ABSOLUTE COUNT (BEAKER) (test 0.71 K/ L 1.18-3.74 qihh=371) MONOCYTES ABSOLUTE COUNT (BEAKER) (test 0.31 K/ L 0.24-0.36 rwoi=089) EOSINOPHILS ABSOLUTE COUNT (BEAKER) (test 0.09 K/ L 0.04-0.36 uayi=292) BASOPHILS ABSOLUTE COUNT (BEAKER) (test 0.05 K/ L 0.01-0.08 jblj=390) IMMATURE GRANULOCYTES-RELATIVE PERCENT (BEAKER) 0 % 0-1 (test bome=3525) HEMOGLOBIN [id number] 13:20:00 Test Item Value Reference Range Comments HEMOGLOBIN A1C (BEAKER) (test zxnb=120) 5.0 % 4.3-6.1 TSH/FREE T4 IF [id number] 11:57:00 Test Item Value Reference Range Comments THYROID STIMULATING HORMONE (BEAKER) (test 0.46 uIU/mL 0.35-4.94 epgb=891) B-TYPE NATRIURETIC FACTOR (BNP)2018-09-13 11:43:00 Test Item Value Reference Range Comments B-TYPE NATRIURETIC PEPTIDE (BEAKER) (test 2747 pg/mL 0-100 ockz=785) URIC [id number] 11:37:00 Test Item Value Reference Range Comments URIC ACID (BEAKER) (test okhw=109) 5.5 mg/dL 2.6-7.2 [id number] 11:37:00 Test Item Value Reference Range Comments MAGNESIUM (BEAKER) (test xwpj=796) 2.0 mg/dL 1.6-2.6 COMPREHENSIVE METABOLIC [id number] 11:37:00 Test Item Value Reference Range Comments TOTAL PROTEIN (BEAKER) 7.6 gm/dL 6.0-8.3 (test jrcj=694) ALBUMIN (BEAKER) (test 3.9 g/dL 3.5-5.0 blpt=3776) ALKALINE PHOSPHATASE 78 U/L 40-150 (BEAKER) (test jfcy=801) BILIRUBIN TOTAL (BEAKER) 0.6 mg/dL 0.2-1.2 (test xfky=482) SODIUM (BEAKER) (test 139 meq/L 136-145 vlxd=243) POTASSIUM (BEAKER) (test 4.4 meq/L 3.5-5.1 bipu=865) CHLORIDE (BEAKER) (test 98 meq/L 98-107 ghfx=088) CO2 (BEAKER) (test 34 meq/L 22-29 mkmi=622) BLOOD UREA NITROGEN 17 mg/dL 7-21 (BEAKER) (test lpai=873) CREATININE (BEAKER) (test 1.37 mg/dL 0.57-1.25 cwop=632) GLUCOSE RANDOM (BEAKER) 115 mg/dL 70-105 (test ffnw=050) CALCIUM (BEAKER) (test 10.0 mg/dL 8.4-10.2 glhg=226) AST (SGOT) (BEAKER) (test 20 U/L 5-34 qmyu=205) ALT (SGPT) (BEAKER) (test 16 U/L 6-55 anhd=606) EGFR (BEAKER) (test 46 mL/min/1.73 sq m ESTIMATED GFR IS NOT bdck=9939) ACCURATE CREATININE CLEARANCE IN PREDICTING GLOMERULAR FILTRATION RATE. ESTIMATED GFR IS NOT APPLICABLE FOR DIALYSIS PATIENTS. LIPID [id number] 11:37:00 Test Item Value Reference Range Comments TRIGLYCERIDES (BEAKER) (test ktju=091) 82 mg/dL CHOLESTEROL (BEAKER) (test vcai=153) 185 mg/dL HDL CHOLESTEROL (BEAKER) (test wqea=058) 111 mg/dL LDL CHOLESTEROL CALCULATED (BEAKER) (test 58 mg/dL ltzk=633) Triglyceride Reference Range: Low Risk <150 Borderline 150- 199 High Risk 200-499 Very High Risk >=500Cholesterol Reference Range: Low Risk <200 Borderline 200-239 High Risk > 240HDL Cholesterol Reference Range: Low Risk >=60 High Risk <40LDL Cholesterol Reference Range: Optimal <100 Near Optimal 100-129 Borderline 130-159 High 160-189 Very High >=[id number] 11:35:00 Test Item Value Reference Range Comments PREALBUMIN (BEAKER) (test pqxq=385) 19 mg/dL 14-45 PROTHROMBIN [id number] 11:24:00 Test Item Value Reference Range Comments PROTIME (BEAKER) (test jxfv=500) 13.3 seconds 11.9-14.2 INR (BEAKER) (test eang=450) 1.1 <=5.9 Effective 08/30/2018: PT Reference Range ChangeNew: 11.9-14.2 Previous: 11.7- 14.7RECOMMENDED COUMADIN/WARFARIN INR THERAPY RANGESSTANDARD DOSE: 2.0-3.0 Includes: PROPHYLAXIS for venous thrombosis, systemic embolization; TREATMENT for venous thrombosis and/or pulmonary embolus.HIGH RISK: Target INR is2.5-3.5 for patients wiht mechanical heart valves.CBC W/PLT COUNT & AUTO [id number] 11:17:00 Test Item Value Reference Range Comments WHITE BLOOD CELL COUNT (BEAKER) (test rvsg=480) 6.5 K/ L 3.5-10.5 RED BLOOD CELL COUNT (BEAKER) (test hqcf=340) 3.02 M/ L 3.93-5.22 HEMOGLOBIN (BEAKER) (test kxog=669) 9.7 GM/DL 11.2-15.7 HEMATOCRIT (BEAKER) (test kejp=466) 31.1 % 34.1-44.9 MEAN CORPUSCULAR VOLUME (BEAKER) (test zepv=965) 103.0 fL 79.4-94.8 MEAN CORPUSCULAR HEMOGLOBIN (BEAKER) (test 32.1 pg 25.6-32.2 alen=650) MEAN CORPUSCULAR HEMOGLOBIN CONC (BEAKER) (test 31.2 GM/DL 32.2-35.5 rvnw=956) RED CELL DISTRIBUTION WIDTH (BEAKER) (test 13.0 % 11.7-14.4 lpvk=660) PLATELET COUNT (BEAKER) (test eplu=473) 239 K/CU MM 150-450 MEAN PLATELET VOLUME (BEAKER) (test tiwe=246) 9.4 fL 9.4-12.3 NUCLEATED RED BLOOD CELLS (BEAKER) (test 0 /100 WBC 0-0 hbor=204) NEUTROPHILS RELATIVE PERCENT (BEAKER) (test 81 % yzgo=428) LYMPHOCYTES RELATIVE PERCENT (BEAKER) (test 10 % gyid=718) MONOCYTES RELATIVE PERCENT (BEAKER) (test 6 % fgow=269) EOSINOPHILS RELATIVE PERCENT (BEAKER) (test 2 % oetp=695) BASOPHILS RELATIVE PERCENT (BEAKER) (test 1 % byeh=989) NEUTROPHILS ABSOLUTE COUNT (BEAKER) (test 5.23 K/ L 1.56-6.13 pwfs=508) LYMPHOCYTES ABSOLUTE COUNT (BEAKER) (test 0.65 K/ L 1.18-3.74 yudj=153) MONOCYTES ABSOLUTE COUNT (BEAKER) (test 0.39 K/ L 0.24-0.36 oihq=464) EOSINOPHILS ABSOLUTE COUNT (BEAKER) (test 0.13 K/ L 0.04-0.36 wapk=485) BASOPHILS ABSOLUTE COUNT (BEAKER) (test 0.05 K/ L 0.01-0.08 dmyr=037) IMMATURE GRANULOCYTES-RELATIVE PERCENT (BEAKER) 0 % 0-1 (test lfhy=6266) POCT-GLUCOSE [id number] 12:29:00 Test Item Value Reference Range Comments POC-GLUCOSE METER (BEAKER) 221 mg/dL 70-110 TESTED AT [facility] [address] [facility] (test oqfl=8280) [facility] [address] POCT-GLUCOSE [id number] 09:00:00 Test Item Value Reference Range Comments POC-GLUCOSE METER (BEAKER) 135 mg/dL 70-110 TESTED AT [address] (test idkf=7290) [facility] [address] RAD, CHEST, 1 VIEW, NON [id number] 08:57:00Reason for exam:->post opShould this be performed [...] Robles Verified Date/Time: 07/22/2018 08:57:17 Reading Location: [address] Neuro Reading Room Electronicallysigned by: TREY ROBLES MD on 07/22/2018 08:57 [id number] 07:51:00 Test Item Value Reference Range Comments PHOSPHORUS (BEAKER) (test znxn=807) 3.9 mg/dL 2.3-4.7 [id number] 07:51:00 Test Item Value Reference Range Comments MAGNESIUM (BEAKER) (test zrqx=749) 1.7 mg/dL 1.6-2.6 BASIC METABOLIC [id number] 07:51:00 Test Item Value Reference Range Comments SODIUM (BEAKER) (test 139 meq/L 136-145 ywgf=583) POTASSIUM (BEAKER) (test 4.4 meq/L 3.5-5.1 apya=001) CHLORIDE (BEAKER) (test 102 meq/L 98-107 fffa=832) CO2 (BEAKER) (test 30 meq/L 22-29 hbht=772) BLOOD UREA NITROGEN 23 mg/dL 7-21 (BEAKER) (test ewnl=095) CREATININE (BEAKER) (test 1.40 mg/dL 0.57-1.25 vmwk=751) GLUCOSE RANDOM (BEAKER) 139 mg/dL 70-105 (test fqcf=675) CALCIUM (BEAKER) (test 8.8 mg/dL 8.4-10.2 nzsk=657) EGFR (BEAKER) (test 45 mL/min/1.73 sq m ESTIMATED GFR IS NOT lxiw=9524) ACCURATE CREATININE CLEARANCE IN PREDICTING GLOMERULAR FILTRATION RATE. ESTIMATED GFR IS NOT APPLICABLE FOR DIALYSIS PATIENTS. [id number] 05:36:00 Test Item Value Reference Range Comments PARTIAL THROMBOPLASTIN TIME (BEAKER) (test 44.5 seconds 22.5-36.0 ciio=157) CBC (HEMOGRAM ONLY)2018-07-22 05:24:00 Test Item Value Reference Range Comments WHITE BLOOD CELL COUNT (BEAKER) (test wqrj=189) 6.6 K/ L 3.5-10.5 RED BLOOD CELL COUNT (BEAKER) (test xsxl=973) 2.45 M/ L 3.93-5.22 HEMOGLOBIN (BEAKER) (test wgic=722) 7.7 GM/DL 11.2-15.7 HEMATOCRIT (BEAKER) (test gcgj=835) 26.1 % 34.1-44.9 MEAN CORPUSCULAR VOLUME (BEAKER) (test crnz=388) 106.5 fL 79.4-94.8 MEAN CORPUSCULAR HEMOGLOBIN (BEAKER) (test 31.4 pg 25.6-32.2 muoi=426) MEAN CORPUSCULAR HEMOGLOBIN CONC (BEAKER) (test 29.5 GM/DL 32.2-35.5 akes=995) RED CELL DISTRIBUTION WIDTH (BEAKER) (test 18.0 % 11.7-14.4 gpbl=127) PLATELET COUNT (BEAKER) (test szur=682) 227 K/CU MM 150-450 MEAN PLATELET VOLUME (BEAKER) (test nwtx=284) 10.0 fL 9.4-12.3 NUCLEATED RED BLOOD CELLS (BEAKER) (test 0 /100 WBC 0-0 uerr=880) POCT-GLUCOSE [id number] 21:36:00 Test Item Value Reference Range Comments POC-GLUCOSE METER (BEAKER) 283 mg/dL 70-110 TESTED AT [address] (test zuiq=5555) [place] [id number] POCT-GLUCOSE [id number] 18:26:00 Test Item Value Reference Range Comments POC-GLUCOSE METER (BEAKER) 123 mg/dL 70-110 TESTED AT [address] (test fucf=0835) [place] [id number] POCT-GLUCOSE [id number] 14:04:00 Test Item Value Reference Range Comments POC-GLUCOSE METER (BEAKER) 152 mg/dL 70-110 TESTED AT [address] (test xwfv=0775) [place] [address] POCT-GLUCOSE [id number] 12:52:00 Test Item Value Reference Range Comments POC-GLUCOSE METER (BEAKER) 228 mg/dL 70-110 TESTED AT [address] (test tzdx=4401) [place] [address] RAD, CHEST, 1 VIEW, NON [id number] 09:40:00Reason for exam:->post opShould this be performed at the bedside?->YesFINAL REPORT Comparison: 07/20/2018 TECHNIQUE: Single view of the chest FINDINGS: There are nonspecific prominent interstitial markings bilaterally. Trace pleural effusions are seen. No gross new lung parenchymal changes. Cardiac silhouette is enlarged. Thoracic aortic stent grafts noted. Right-sided PICC line is stable. Signed: Olayinka Peters MDReport Verified Date/Time: 07/21/2018 09: 40:18 Reading Location: [facility] Radiology Reading Room POCT-GLUCOSE [id number] 09:10: 00 Test Item Value Reference Range Comments POC-GLUCOSE METER (BEAKER) 239 mg/dL 70-110 TESTED AT [address] (test mryh=7609) [place] [address] [id number] 06:51:00 Test Item Value Reference Range Comments PHOSPHORUS (BEAKER) (test ewhp=676) 3.4 mg/dL 2.3-4.7 [id number] 06:51:00 Test Item Value Reference Range Comments MAGNESIUM (BEAKER) (test bqkd=893) 1.8 mg/dL 1.6-2.6 BASIC METABOLIC [id number] 06:51:00 Test Item Value Reference Range Comments SODIUM (BEAKER) (test 137 meq/L 136-145 bhch=687) POTASSIUM (BEAKER) (test 4.4 meq/L 3.5-5.1 jhdn=073) CHLORIDE (BEAKER) (test 100 meq/L 98-107 foqw=035) CO2 (BEAKER) (test 31 meq/L 22-29 caom=409) BLOOD UREA NITROGEN 23 mg/dL 7-21 (BEAKER) (test bmqf=272) CREATININE (BEAKER) (test 1.40 mg/dL 0.57-1.25 pjkc=901) GLUCOSE RANDOM (BEAKER) 146 mg/dL 70-105 (test lsmn=752) CALCIUM (BEAKER) (test 9.2 mg/dL 8.4-10.2 vkon=948) EGFR (BEAKER) (test 45 mL/min/1.73 sq m ESTIMATED GFR IS NOT bnur=6324) ACCURATE CREATININE CLEARANCE IN PREDICTING GLOMERULAR FILTRATION RATE. ESTIMATED GFR IS NOT APPLICABLE FOR DIALYSIS PATIENTS. [id number] 06:47:00 Test Item Value Reference Range Comments PARTIAL THROMBOPLASTIN TIME (BEAKER) (test 51.7 seconds 22.5-36.0 lxxe=915) CBC (HEMOGRAM ONLY)2018-07-21 06:28:00 Test Item Value Reference Range Comments WHITE BLOOD CELL COUNT (BEAKER) (test cswg=439) 5.4 K/ L 3.5-10.5 RED BLOOD CELL COUNT (BEAKER) (test ibzy=967) 2.66 M/ L 3.93-5.22 HEMOGLOBIN (BEAKER) (test bgzd=507) 8.2 GM/DL 11.2-15.7 HEMATOCRIT (BEAKER) (test umei=578) 28.3 % 34.1-44.9 MEAN CORPUSCULAR VOLUME (BEAKER) (test xsak=609) 106.4 fL 79.4-94.8 MEAN CORPUSCULAR HEMOGLOBIN (BEAKER) (test 30.8 pg 25.6-32.2 ljkg=151) MEAN CORPUSCULAR HEMOGLOBIN CONC (BEAKER) (test 29.0 GM/DL 32.2-35.5 hnik=167) RED CELL DISTRIBUTION WIDTH (BEAKER) (test 18.3 % 11.7-14.4 esbs=091) PLATELET COUNT (BEAKER) (test nhxk=771) 211 K/CU MM 150-450 MEAN PLATELET VOLUME (BEAKER) (test awiu=154) 10.3 fL 9.4-12.3 NUCLEATED RED BLOOD CELLS (BEAKER) (test 0 /100 WBC 0-0 ieqw=835) POCT-GLUCOSE [id number] 21:18:00 Test Item Value Reference Range Comments POC-GLUCOSE METER (BEAKER) 245 mg/dL 70-110 TESTED AT [address] (test wbai=2670) [place] [address] POCT-GLUCOSE [id number] 18:12:00 Test Item Value Reference Range Comments POC-GLUCOSE METER (BEAKER) 158 mg/dL 70-110 TESTED AT [address] (test vmzu=1006) [place] [id number] POCT-GLUCOSE [id number] 12:46:00 Test Item Value Reference Range Comments POC-GLUCOSE METER (BEAKER) 178 mg/dL 70-110 TESTED AT [address] (test ggef=6519) [facility] [address] RAD, CHEST, 1 VIEW, NON [id number] 08:43:00Reason for exam:->post opShould this be performed at the bedside?->YesFINAL REPORT Chest one view. Clinical history: post op Comparison: 2018Discussion: A frontal chest is provided. Cardiomediastinal contours are unchanged. Lines and tubesare in stable position. Stable appearance of vascular congestion and interstitial edema. Small bilateral pleural effusions. No pneumothorax. Signed: Morgan Cheng Verified Date/Time: 07/20/2018 08:43 :10 Reading Location: [facility] Radiology Reading Room POCT-GLUCOSE [id number] 08:05:00 Test Item Value Reference Range Comments POC-GLUCOSE METER (BEAKER) 114 mg/dL 70-110 TESTED AT [facility] [address] (test mvcm=4156) [facility] [address] [id number] 06:55:00 Test Item Value Reference Range Comments PHOSPHORUS (BEAKER) (test pxjt=120) 3.4 mg/dL 2.3-4.7 [id number] 06:55:00 Test Item Value Reference Range Comments MAGNESIUM (BEAKER) (test zhct=861) 1.5 mg/dL 1.6-2.6 BASIC METABOLIC [id number] 06:55:00 Test Item Value Reference Range Comments SODIUM (BEAKER) (test 137 meq/L 136-145 eube=678) POTASSIUM (BEAKER) (test 4.4 meq/L 3.5-5.1 rlxz=289) CHLORIDE (BEAKER) (test 101 meq/L 98-107 jkeb=826) CO2 (BEAKER) (test 27 meq/L 22-29 piig=702) BLOOD UREA NITROGEN 23 mg/dL 7-21 (BEAKER) (test pmxk=054) CREATININE (BEAKER) (test 1.28 mg/dL 0.57-1.25 pywq=282) GLUCOSE RANDOM (BEAKER) 150 mg/dL 70-105 (test vart=948) CALCIUM (BEAKER) (test 9.0 mg/dL 8.4-10.2 fmvv=145) EGFR (BEAKER) (test 50 mL/min/1.73 sq m ESTIMATED GFR IS NOT zidz=1770) ACCURATE CREATININE CLEARANCE IN PREDICTING GLOMERULAR FILTRATION RATE. ESTIMATED GFR IS NOT APPLICABLE FOR DIALYSIS PATIENTS. [id number] 06:28:00 Test Item Value Reference Range Comments PARTIAL THROMBOPLASTIN TIME (BEAKER) (test 44.5 seconds 22.5-36.0 iaug=508) CBC (HEMOGRAM ONLY)2018-07-20 06:19:00 Test Item Value Reference Range Comments WHITE BLOOD CELL COUNT (BEAKER) (test wqek=848) 5.5 K/ L 3.5-10.5 RED BLOOD CELL COUNT (BEAKER) (test yfvo=166) 2.58 M/ L 3.93-5.22 HEMOGLOBIN (BEAKER) (test nnhk=391) 7.9 GM/DL 11.2-15.7 HEMATOCRIT (BEAKER) (test vkpu=438) 27.1 % 34.1-44.9 MEAN CORPUSCULAR VOLUME (BEAKER) (test spph=402) 105.0 fL 79.4-94.8 MEAN CORPUSCULAR HEMOGLOBIN (BEAKER) (test 30.6 pg 25.6-32.2 xpet=562) MEAN CORPUSCULAR HEMOGLOBIN CONC (BEAKER) (test 29.2 GM/DL 32.2-35.5 bowa=248) RED CELL DISTRIBUTION WIDTH (BEAKER) (test 18.5 % 11.7-14.4 pxqz=331) PLATELET COUNT (BEAKER) (test gktp=830) 189 K/CU MM 150-450 MEAN PLATELET VOLUME (BEAKER) (test eitk=942) 9.9 fL 9.4-12.3 NUCLEATED RED BLOOD CELLS (BEAKER) (test 0 /100 WBC 0-0 izrk=061) POCT-GLUCOSE [id number] 00:43:00 Test Item Value Reference Range Comments POC-GLUCOSE METER (BEAKER) 135 mg/dL 70-110 TESTED AT [address] (test odin=6444) [place] [id number] POCT-GLUCOSE [id number] 21:19:00 Test Item Value Reference Range Comments POC-GLUCOSE METER (BEAKER) 284 mg/dL 70-110 TESTED AT [address] (test rlfk=6461) [place] [id number] POCT-GLUCOSE [id number] 17:54:00 Test Item Value Reference Range Comments POC-GLUCOSE METER (BEAKER) 146 mg/dL 70-110 TESTED AT [address] (test xeqk=0908) [place] [id number] POCT-GLUCOSE [id number] 14:15:00 Test Item Value Reference Range Comments POC-GLUCOSE METER (BEAKER) 230 mg/dL 70-110 TESTED AT [address] (test jrdc=3702) [facility] [address] RAD, CHEST, 1 VIEW, NON [id number] 08:30:00Reason for exam:->post opShould this be performed [...] MDReport Verified Date/Time: 07/19/2018 08:30:21 Reading Location: [facility] Radiology Reading Room POCT-GLUCOSE [id number] 07:30:00 Test Item Value Reference Range Comments POC-GLUCOSE METER (BEAKER) 177 mg/dL 70-110 TESTED AT [facility] [address] [facility] (test zsvb=3894) [facility] [address] [id number] 05:20:00 Test Item Value Reference Range Comments PHOSPHORUS (BEAKER) (test wcbi=208) 3.5 mg/dL 2.3-4.7 [id number] 05:20:00 Test Item Value Reference Range Comments MAGNESIUM (BEAKER) (test dcsh=059) 1.8 mg/dL 1.6-2.6 BASIC METABOLIC [id number] 05:20:00 Test Item Value Reference Range Comments SODIUM (BEAKER) (test 142 meq/L 136-145 gbac=726) POTASSIUM (BEAKER) (test 4.5 meq/L 3.5-5.1 nfhx=311) CHLORIDE (BEAKER) (test 107 meq/L 98-107 robf=916) CO2 (BEAKER) (test 31 meq/L 22-29 qjjg=731) BLOOD UREA NITROGEN 25 mg/dL 7-21 (BEAKER) (test lhfg=282) CREATININE (BEAKER) (test 1.35 mg/dL 0.57-1.25 dgwl=002) GLUCOSE RANDOM (BEAKER) 165 mg/dL 70-105 (test hrrt=006) CALCIUM (BEAKER) (test 9.1 mg/dL 8.4-10.2 fqhs=902) EGFR (BEAKER) (test 47 mL/min/1.73 sq m ESTIMATED GFR IS NOT qiaw=4717) ACCURATE CREATININE CLEARANCE IN PREDICTING GLOMERULAR FILTRATION RATE. ESTIMATED GFR IS NOT APPLICABLE FOR DIALYSIS PATIENTS. [id number] 05:17:00 Test Item Value Reference Range Comments PARTIAL THROMBOPLASTIN TIME (BEAKER) (test 44.9 seconds 22.5-36.0 hrib=745) PROTHROMBIN [id number] 05:16:00 Test Item Value Reference Range Comments PROTIME (BEAKER) (test vnlg=071) 13.9 seconds 11.7-14.7 INR (BEAKER) (test jyys=717) 1.1 <=5.9 RECOMMENDED COUMADIN/WARFARIN INR THERAPY RANGESSTANDARD DOSE: 2.0 - 3.0 Includes: PROPHYLAXIS forvenous thrombosis, systemic embolization; TREATMENT for venous thrombosis and/or pulmonary embolus.HIGH RISK: Target INR is 2.5-3.5 for patients with mechanical heart valves.CBC (HEMOGRAM ONLY)2018-07-19 05:02:00 Test Item Value Reference Range Comments WHITE BLOOD CELL COUNT (BEAKER) (test spbj=239) 6.3 K/ L 3.5-10.5 RED BLOOD CELL COUNT (BEAKER) (test irag=984) 2.59 M/ L 3.93-5.22 HEMOGLOBIN (BEAKER) (test muiu=929) 8.1 GM/DL 11.2-15.7 HEMATOCRIT (BEAKER) (test pkyp=741) 27.6 % 34.1-44.9 MEAN CORPUSCULAR VOLUME (BEAKER) (test olgk=294) 106.6 fL 79.4-94.8 MEAN CORPUSCULAR HEMOGLOBIN (BEAKER) (test 31.3 pg 25.6-32.2 dowl=282) MEAN CORPUSCULAR HEMOGLOBIN CONC (BEAKER) (test 29.3 GM/DL 32.2-35.5 yjmo=184) RED CELL DISTRIBUTION WIDTH (BEAKER) (test 18.6 % 11.7-14.4 ckwn=471) PLATELET COUNT (BEAKER) (test jene=916) 186 K/CU MM 150-450 MEAN PLATELET VOLUME (BEAKER) (test uyfs=171) 9.7 fL 9.4-12.3 NUCLEATED RED BLOOD CELLS (BEAKER) (test 0 /100 WBC 0-0 rhsz=315) POCT-GLUCOSE [id number] 23:14:00 Test Item Value Reference Range Comments POC-GLUCOSE METER (BEAKER) 173 mg/dL 70-110 TESTED AT [address] (test cnuc=2921) [facility] [address] POCT-GLUCOSE [id number] 21:47:00 Test Item Value Reference Range Comments POC-GLUCOSE METER (BEAKER) 237 mg/dL 70-110 TESTED AT [address] (test kjvf=7578) [facility] [address] POCT-GLUCOSE [id number] 18:16:00 Test Item Value Reference Range Comments POC-GLUCOSE METER (BEAKER) 234 mg/dL 70-110 TESTED AT [address] (test vraa=2911) [facility] [address] POCT-GLUCOSE [id number] 08:34:00 Test Item Value Reference Range Comments POC-GLUCOSE METER (BEAKER) 127 mg/dL 70-110 TESTED AT [address] (test xkdb=5460) [facility] [address] RAD, CHEST, 1 VIEW, NON [id number] 08:16:00Reason for exam:->post opShould this be performed [...] Cheng Verified Date/Time: 07/18/2018 08:16:56 Reading Location: [facility] Radiology Reading Room 08: 16 AMCBC (HEMOGRAM ONLY)2018-07-18 04:48:00 Test Item Value Reference Range Comments WHITE BLOOD CELL COUNT (BEAKER) (test dpyj=907) 7.8 K/ L 3.5-10.5 RED BLOOD CELL COUNT (BEAKER) (test hqok=309) 2.64 M/ L 3.93-5.22 HEMOGLOBIN (BEAKER) (test fghv=335) 8.1 GM/DL 11.2-15.7 HEMATOCRIT (BEAKER) (test usim=760) 28.1 % 34.1-44.9 MEAN CORPUSCULAR VOLUME (BEAKER) (test zzvh=719) 106.4 fL 79.4-94.8 MEAN CORPUSCULAR HEMOGLOBIN (BEAKER) (test 30.7 pg 25.6-32.2 pghj=724) MEAN CORPUSCULAR HEMOGLOBIN CONC (BEAKER) (test 28.8 GM/DL 32.2-35.5 qawk=786) RED CELL DISTRIBUTION WIDTH (BEAKER) (test 18.9 % 11.7-14.4 cjrj=509) PLATELET COUNT (BEAKER) (test ussz=399) 197 K/CU MM 150-450 MEAN PLATELET VOLUME (BEAKER) (test mvdr=628) 10.2 fL 9.4-12.3 NUCLEATED RED BLOOD CELLS (BEAKER) (test 0 /100 WBC 0-0 qdxf=521) [id number] 04:40:00 Test Item Value Reference Range Comments PHOSPHORUS (BEAKER) (test byyj=623) 3.6 mg/dL 2.3-4.7 [id number] 04:40:00 Test Item Value Reference Range Comments MAGNESIUM (BEAKER) (test jqnv=699) 1.8 mg/dL 1.6-2.6 BASIC METABOLIC [id number] 04:40:00 Test Item Value Reference Range Comments SODIUM (BEAKER) (test 140 meq/L 136-145 fujr=346) POTASSIUM (BEAKER) (test 4.5 meq/L 3.5-5.1 jnlx=380) CHLORIDE (BEAKER) (test 106 meq/L 98-107 uwpz=007) CO2 (BEAKER) (test 26 meq/L 22-29 tgia=301) BLOOD UREA NITROGEN 23 mg/dL 7-21 (BEAKER) (test dvrw=777) CREATININE (BEAKER) (test 1.34 mg/dL 0.57-1.25 pxhh=214) GLUCOSE RANDOM (BEAKER) 105 mg/dL 70-105 (test efji=716) CALCIUM (BEAKER) (test 9.1 mg/dL 8.4-10.2 xclu=902) EGFR (BEAKER) (test 47 mL/min/1.73 sq m ESTIMATED GFR IS NOT aeno=8839) ACCURATE CREATININE CLEARANCE IN PREDICTING GLOMERULAR FILTRATION RATE. ESTIMATED GFR IS NOT APPLICABLE FOR DIALYSIS PATIENTS. [id number] 04:22:00 Test Item Value Reference Range Comments PARTIAL THROMBOPLASTIN TIME (BEAKER) (test 56.8 seconds 22.5-36.0 rjla=463) PROTHROMBIN [id number] 04:20:00 Test Item Value Reference Range Comments PROTIME (BEAKER) (test qxks=276) 13.9 seconds 11.7-14.7 INR (BEAKER) (test jwkg=817) 1.0 <=5.9 RECOMMENDED COUMADIN/WARFARIN INR THERAPY RANGESSTANDARD DOSE: 2.0 - 3.0 Includes: PROPHYLAXIS forvenous thrombosis, systemic embolization; TREATMENT for venous thrombosis and/or pulmonary embolus.HIGH RISK: Target INR is 2.5-3.5 for patients with mechanical heart valves.POCT-GLUCOSE [id number] 20:54:00 Test Item Value Reference Range Comments POC-GLUCOSE METER (BEAKER) 311 mg/dL 70-110 Patient on insulin Drip/TESTED (test xhoe=6367) AT [place] [id number] POCT-GLUCOSE [id number] 18:21:00 Test Item Value Reference Range Comments POC-GLUCOSE METER (BEAKER) 186 mg/dL 70-110 TESTED AT [address] (test pwro=4659) [place] [id number] POCT-GLUCOSE [id number] 13:16:00 Test Item Value Reference Range Comments POC-GLUCOSE METER (BEAKER) 153 mg/dL 70-110 TESTED AT [address] (test shmo=4124) [place] [address] POCT-GLUCOSE [id number] 09:26:00 Test Item Value Reference Range Comments POC-GLUCOSE METER (BEAKER) 128 mg/dL 70-110 TESTED AT [address] (test lbiw=9115) [place] [address] RAD, CHEST, 1 VIEW, NON [id number] 07:39:00Reason for exam:->post opShould this be performed [...] MDReport Verified Date/Time: 2018 07:39:00 Reading Location: [facility] Radiology Reading Room Electronically signed by: AZUL SAM M.D.on 07/17/2018 07:39 [id number] 06:22:00 Test Item Value Reference Range Comments PHOSPHORUS (BEAKER) (test fqhn=722) 3.6 mg/dL 2.3-4.7 [id number] 06:22:00 Test Item Value Reference Range Comments MAGNESIUM (BEAKER) (test gmhm=202) 1.9 mg/dL 1.6-2.6 BASIC METABOLIC [id number] 06:22:00 Test Item Value Reference Range Comments SODIUM (BEAKER) (test 142 meq/L 136-145 qjxw=505) POTASSIUM (BEAKER) (test 4.6 meq/L 3.5-5.1 zxyt=157) CHLORIDE (BEAKER) (test 106 meq/L 98-107 puyn=979) CO2 (BEAKER) (test 30 meq/L 22-29 udhu=804) BLOOD UREA NITROGEN 23 mg/dL 7-21 (BEAKER) (test zgmx=323) CREATININE (BEAKER) (test 1.31 mg/dL 0.57-1.25 vqjs=707) GLUCOSE RANDOM (BEAKER) 88 mg/dL 70-105 (test spde=831) CALCIUM (BEAKER) (test 8.9 mg/dL 8.4-10.2 etol=212) EGFR (BEAKER) (test 49 mL/min/1.73 sq m ESTIMATED GFR IS NOT gxlc=0983) ACCURATE CREATININE CLEARANCE IN PREDICTING GLOMERULAR FILTRATION RATE. ESTIMATED GFR IS NOT APPLICABLE FOR DIALYSIS PATIENTS. [id number] 05:10:00 Test Item Value Reference Range Comments PARTIAL THROMBOPLASTIN TIME (BEAKER) (test 52.0 seconds 22.5-36.0 pskv=338) PROTHROMBIN [id number] 05:09:00 Test Item Value Reference Range Comments PROTIME (BEAKER) (test jkep=592) 14.3 seconds 11.7-14.7 INR (BEAKER) (test xyyd=623) 1.1 <=5.9 RECOMMENDED COUMADIN/WARFARIN INR THERAPY RANGESSTANDARD DOSE: 2.0 - 3.0 Includes: PROPHYLAXIS forvenous thrombosis, systemic embolization; TREATMENT for venous thrombosis and/or pulmonary embolus.HIGH RISK: Target INR is 2.5-3.5 for patients with mechanical heart valves.CBC (HEMOGRAM ONLY)2018-07-17 04:55:00 Test Item Value Reference Range Comments WHITE BLOOD CELL COUNT (BEAKER) (test mbhs=748) 7.5 K/ L 3.5-10.5 RED BLOOD CELL COUNT (BEAKER) (test bifb=768) 2.63 M/ L 3.93-5.22 HEMOGLOBIN (BEAKER) (test gpoc=669) 8.1 GM/DL 11.2-15.7 HEMATOCRIT (BEAKER) (test oiys=753) 27.7 % 34.1-44.9 MEAN CORPUSCULAR VOLUME (BEAKER) (test fenn=584) 105.3 fL 79.4-94.8 MEAN CORPUSCULAR HEMOGLOBIN (BEAKER) (test 30.8 pg 25.6-32.2 ymjl=280) MEAN CORPUSCULAR HEMOGLOBIN CONC (BEAKER) (test 29.2 GM/DL 32.2-35.5 uspz=429) RED CELL DISTRIBUTION WIDTH (BEAKER) (test 18.9 % 11.7-14.4 jyth=548) PLATELET COUNT (BEAKER) (test ieyj=498) 215 K/CU MM 150-450 MEAN PLATELET VOLUME (BEAKER) (test mgjb=535) 10.2 fL 9.4-12.3 NUCLEATED RED BLOOD CELLS (BEAKER) (test 0 /100 WBC 0-0 djvg=862) POCT-GLUCOSE [id number] 21:30:00 Test Item Value Reference Range Comments POC-GLUCOSE METER (BEAKER) 217 mg/dL 70-110 TESTED AT [address] (test woxw=3043) [facility] [address] POCT-GLUCOSE [id number] 18:00:00 Test Item Value Reference Range Comments POC-GLUCOSE METER (BEAKER) 192 mg/dL 70-110 TESTED AT [address] (test kgjb=4663) [facility] [address] POCT-GLUCOSE [id number] 14:32:00 Test Item Value Reference Range Comments POC-GLUCOSE METER (BEAKER) 203 mg/dL 70-110 TESTED AT [address] (test bztk=0940) [facility] [address] POCT-GLUCOSE [id number] 09:41:00 Test Item Value Reference Range Comments POC-GLUCOSE METER (BEAKER) 113 mg/dL 70-110 TESTED AT [address] (test wyhd=8066) [facility] [address] [id number] 08:49:00 Test Item Value Reference Range Comments PHOSPHORUS (BEAKER) (test nhkm=203) 3.9 mg/dL 2.3-4.7 [id number] 08:49:00 Test Item Value Reference Range Comments MAGNESIUM (BEAKER) (test ndrn=305) 2.0 mg/dL 1.6-2.6 BASIC METABOLIC [id number] 08:49:00 Test Item Value Reference Range Comments SODIUM (BEAKER) (test 142 meq/L 136-145 roao=036) POTASSIUM (BEAKER) (test 4.5 meq/L 3.5-5.1 tska=236) CHLORIDE (BEAKER) (test 105 meq/L 98-107 fcob=255) CO2 (BEAKER) (test 30 meq/L 22-29 vviz=767) BLOOD UREA NITROGEN 24 mg/dL 7-21 (BEAKER) (test rpyd=194) CREATININE (BEAKER) (test 1.25 mg/dL 0.57-1.25 sgul=102) GLUCOSE RANDOM (BEAKER) 80 mg/dL 70-105 (test ccoj=464) CALCIUM (BEAKER) (test 8.8 mg/dL 8.4-10.2 ltab=818) EGFR (BEAKER) (test 51 mL/min/1.73 sq m ESTIMATED GFR IS NOT iejj=8573) ACCURATE CREATININE CLEARANCE IN PREDICTING GLOMERULAR FILTRATION RATE. ESTIMATED GFR IS NOT APPLICABLE FOR DIALYSIS PATIENTS. RAD, CHEST, 1 VIEW, NON [id number] 08:09:00Reason for exam:->post opShould this be performed [...] Lopezepcamilla Verified Date/Time: 07/16/2018 08:09:34 Reading Location: [address] Body Reading Room 08: 09 AMPROTHROMBIN [id number] 05:46:00 Test Item Value Reference Range Comments PROTIME (BEAKER) (test eshd=544) 14.0 seconds 11.7-14.7 INR (BEAKER) (test yleu=448) 1.1 <=5.9 RECOMMENDED COUMADIN/WARFARIN INR THERAPY RANGESSTANDARD DOSE: 2.0 - 3.0 Includes: PROPHYLAXIS forvenous thrombosis, systemic embolization; TREATMENT for venous thrombosis and/or pulmonary embolus.HIGH RISK: Target INR is 2.5-3.5 for patients with mechanical heart valves.[id number] 05:46:00 Test Item Value Reference Range Comments PARTIAL THROMBOPLASTIN TIME (BEAKER) (test 54.5 seconds 22.5-36.0 icig=523) CBC (HEMOGRAM ONLY)2018-07-16 05:33:00 Test Item Value Reference Range Comments WHITE BLOOD CELL COUNT (BEAKER) (test vkpc=556) 6.6 K/ L 3.5-10.5 RED BLOOD CELL COUNT (BEAKER) (test jnkc=146) 2.75 M/ L 3.93-5.22 HEMOGLOBIN (BEAKER) (test ciky=598) 8.5 GM/DL 11.2-15.7 HEMATOCRIT (BEAKER) (test xkwg=917) 28.5 % 34.1-44.9 MEAN CORPUSCULAR VOLUME (BEAKER) (test tjpo=123) 103.6 fL 79.4-94.8 MEAN CORPUSCULAR HEMOGLOBIN (BEAKER) (test 30.9 pg 25.6-32.2 ukza=897) MEAN CORPUSCULAR HEMOGLOBIN CONC (BEAKER) (test 29.8 GM/DL 32.2-35.5 hmie=356) RED CELL DISTRIBUTION WIDTH (BEAKER) (test 19.1 % 11.7-14.4 fhfh=867) PLATELET COUNT (BEAKER) (test cjhd=356) 240 K/CU MM 150-450 MEAN PLATELET VOLUME (BEAKER) (test pmbt=854) 10.1 fL 9.4-12.3 NUCLEATED RED BLOOD CELLS (BEAKER) (test 0 /100 WBC 0-0 jjfz=911) POCT-GLUCOSE [id number] 21:14:00 Test Item Value Reference Range Comments POC-GLUCOSE METER (BEAKER) 152 mg/dL 70-110 TESTED AT [address] (test ioct=7531) [place] [id number] POCT-GLUCOSE [id number] 19:03:00 Test Item Value Reference Range Comments POC-GLUCOSE METER (BEAKER) 173 mg/dL 70-110 TESTED AT [address] (test tfob=4411) [place] [address] POCT-GLUCOSE [id number] 13:33:00 Test Item Value Reference Range Comments POC-GLUCOSE METER (BEAKER) 274 mg/dL 70-110 TESTED AT [address] (test ijmd=5338) [place] [address] POCT-GLUCOSE [id number] 10:28:00 Test Item Value Reference Range Comments POC-GLUCOSE METER (BEAKER) 131 mg/dL 70-110 TESTED AT [address] (test awps=1389) [facility] [address] POCT-GLUCOSE [id number] 06:41:00 Test Item Value Reference Range Comments POC-GLUCOSE METER (BEAKER) 152 mg/dL 70-110 TESTED AT [address] (test lghx=7037) [facility] [address] [id number] 04:02:00 Test Item Value Reference Range Comments PHOSPHORUS (BEAKER) (test hmhn=646) 3.6 mg/dL 2.3-4.7 [id number] 04:02:00 Test Item Value Reference Range Comments MAGNESIUM (BEAKER) (test dfvg=675) 2.1 mg/dL 1.6-2.6 BASIC METABOLIC [id number] 04:02:00 Test Item Value Reference Range Comments SODIUM (BEAKER) (test 135 meq/L 136-145 oxep=557) POTASSIUM (BEAKER) (test 4.6 meq/L 3.5-5.1 tloy=930) CHLORIDE (BEAKER) (test 101 meq/L 98-107 hlze=830) CO2 (BEAKER) (test 27 meq/L 22-29 ztfr=056) BLOOD UREA NITROGEN 23 mg/dL 7-21 (BEAKER) (test sdli=645) CREATININE (BEAKER) (test 1.37 mg/dL 0.57-1.25 bwmk=533) GLUCOSE RANDOM (BEAKER) 187 mg/dL 70-105 (test lpvo=185) CALCIUM (BEAKER) (test 8.4 mg/dL 8.4-10.2 kepq=025) EGFR (BEAKER) (test 46 mL/min/1.73 sq m ESTIMATED GFR IS NOT nnvd=8221) ACCURATE CREATININE CLEARANCE IN PREDICTING GLOMERULAR FILTRATION RATE. ESTIMATED GFR IS NOT APPLICABLE FOR DIALYSIS PATIENTS. [id number] 03:57:00 Test Item Value Reference Range Comments PARTIAL THROMBOPLASTIN TIME (BEAKER) (test 44.5 seconds 22.5-36.0 yovd=520) PROTHROMBIN [id number] 03:56:00 Test Item Value Reference Range Comments PROTIME (BEAKER) (test zvje=455) 13.4 seconds 11.7-14.7 INR (BEAKER) (test xgxa=627) 1.0 <=5.9 RECOMMENDED COUMADIN/WARFARIN INR THERAPY RANGESSTANDARD DOSE: 2.0 - 3.0 Includes: PROPHYLAXIS forvenous thrombosis, systemic embolization; TREATMENT for venous thrombosis and/or pulmonary embolus.HIGH RISK: Target INR is 2.5-3.5 for patients with mechanical heart valves.RAD, CHEST, 1 VIEW, NON [id number] 03:40:00Reason for exam:->post opShould this be [...] MDReport Verified Date/Time: 07/15/2018 03:40:13 Reading Location: [address] Neuro Reading Room 03: 40 AMCBC (HEMOGRAM ONLY)2018-07-15 03:33:00 Test Item Value Reference Range Comments WHITE BLOOD CELL COUNT (BEAKER) (test gbyk=895) 7.2 K/ L 3.5-10.5 RED BLOOD CELL COUNT (BEAKER) (test fiul=623) 2.91 M/ L 3.93-5.22 HEMOGLOBIN (BEAKER) (test ztxg=614) 8.9 GM/DL 11.2-15.7 HEMATOCRIT (BEAKER) (test rwwi=413) 30.2 % 34.1-44.9 MEAN CORPUSCULAR VOLUME (BEAKER) (test vorc=755) 103.8 fL 79.4-94.8 MEAN CORPUSCULAR HEMOGLOBIN (BEAKER) (test 30.6 pg 25.6-32.2 wgtv=638) MEAN CORPUSCULAR HEMOGLOBIN CONC (BEAKER) (test 29.5 GM/DL 32.2-35.5 pygw=353) RED CELL DISTRIBUTION WIDTH (BEAKER) (test 19.2 % 11.7-14.4 xurh=664) PLATELET COUNT (BEAKER) (test dupz=691) 217 K/CU MM 150-450 MEAN PLATELET VOLUME (BEAKER) (test gzqe=369) 9.8 fL 9.4-12.3 NUCLEATED RED BLOOD CELLS (BEAKER) (test 0 /100 WBC 0-0 qfdt=695) POCT-GLUCOSE [id number] 21:46:00 Test Item Value Reference Range Comments POC-GLUCOSE METER (BEAKER) 263 mg/dL 70-110 TESTED AT [facility] [address] [facility] (test ntow=1815) [facility] [address] POCT-GLUCOSE [id number] 19:03:00 Test Item Value Reference Range Comments POC-GLUCOSE METER (BEAKER) 178 mg/dL 70-110 TESTED AT [facility] [address] [facility] (test hbsl=1162) [facility] [address] POCT-GLUCOSE [id number] 17:02:00 Test Item Value Reference Range Comments POC-GLUCOSE METER (BEAKER) 126 mg/dL 70-110 TESTED AT [address] (test phyw=8932) [facility] [address] POCT-GLUCOSE [id number] 11:34:00 Test Item Value Reference Range Comments POC-GLUCOSE METER (BEAKER) 202 mg/dL 70-110 TESTED AT [address] (test rtaz=8442) [facility] [address] RAD, CHEST, 1 VIEW, NON [id number] 05:46:00Reason for exam:->post opShould this be performed [...] Robles Verified Date/Time: 07/14/2018 05:46:57 Reading Location: [address] Neuro Reading Room [id number] 04:03:00 Test Item Value Reference Range Comments MAGNESIUM (BEAKER) (test 2.2 mg/dL 1.6-2.6 Specimen slightly hemolyzed vdbq=805) [id number] 04:03:00 Test Item Value Reference Range Comments PHOSPHORUS (BEAKER) (test 2.9 mg/dL 2.3-4.7 Specimen slightly hemolyzed cxpf=469) BASIC METABOLIC [id number] 04:03:00 Test Item Value Reference Range Comments SODIUM (BEAKER) (test 138 meq/L 136-145 pqwd=597) POTASSIUM (BEAKER) (test 5.0 meq/L 3.5-5.1 Specimen slightly gvmg=533) hemolyzed CHLORIDE (BEAKER) (test 103 meq/L 98-107 rxpv=438) CO2 (BEAKER) (test 29 meq/L 22-29 dzff=832) BLOOD UREA NITROGEN 23 mg/dL 7-21 (BEAKER) (test muod=837) CREATININE (BEAKER) (test 1.41 mg/dL 0.57-1.25 Specimen slightly vrjf=226) hemolyzed GLUCOSE RANDOM (BEAKER) 144 mg/dL 70-105 (test cljk=077) CALCIUM (BEAKER) (test 9.1 mg/dL 8.4-10.2 yjup=982) EGFR (BEAKER) (test 45 mL/min/1.73 sq m ESTIMATED GFR IS NOT naxj=5351) ACCURATE CREATININE CLEARANCE IN PREDICTING GLOMERULAR FILTRATION RATE. ESTIMATED GFR IS NOT APPLICABLE FOR DIALYSIS PATIENTS. [id number] 03:49:00 Test Item Value Reference Range Comments PARTIAL THROMBOPLASTIN TIME (BEAKER) (test 42.0 seconds 22.5-36.0 gidq=378) PROTHROMBIN [id number] 03:48:00 Test Item Value Reference Range Comments PROTIME (BEAKER) (test yrgq=012) 14.1 seconds 11.7-14.7 INR (BEAKER) (test tujh=557) 1.1 <=5.9 RECOMMENDED COUMADIN/WARFARIN INR THERAPY RANGESSTANDARD DOSE: 2.0 - 3.0 Includes: PROPHYLAXIS forvenous thrombosis, systemic embolization; TREATMENT for venous thrombosis and/or pulmonary embolus.HIGH RISK: Target INR is 2.5-3.5 for patients with mechanical heart valves.CBC (HEMOGRAM ONLY)2018-07-14 03:38:00 Test Item Value Reference Range Comments WHITE BLOOD CELL COUNT (BEAKER) (test qvlf=125) 8.1 K/ L 3.5-10.5 RED BLOOD CELL COUNT (BEAKER) (test ehwh=683) 2.93 M/ L 3.93-5.22 HEMOGLOBIN (BEAKER) (test jevs=995) 9.0 GM/DL 11.2-15.7 HEMATOCRIT (BEAKER) (test cgsn=748) 30.6 % 34.1-44.9 MEAN CORPUSCULAR VOLUME (BEAKER) (test phfu=773) 104.4 fL 79.4-94.8 MEAN CORPUSCULAR HEMOGLOBIN (BEAKER) (test 30.7 pg 25.6-32.2 awyl=471) MEAN CORPUSCULAR HEMOGLOBIN CONC (BEAKER) (test 29.4 GM/DL 32.2-35.5 epnw=919) RED CELL DISTRIBUTION WIDTH (BEAKER) (test 19.6 % 11.7-14.4 hijp=116) PLATELET COUNT (BEAKER) (test iizw=994) 252 K/CU MM 150-450 MEAN PLATELET VOLUME (BEAKER) (test bxqz=857) 9.7 fL 9.4-12.3 NUCLEATED RED BLOOD CELLS (BEAKER) (test 0 /100 WBC 0-0 mofx=242) POCT-GLUCOSE [id number] 21:17:00 Test Item Value Reference Range Comments POC-GLUCOSE METER (BEAKER) 168 mg/dL 70-110 TESTED AT [address] (test hkyl=3095) [place] [id number] POCT-GLUCOSE [id number] 16:32:00 Test Item Value Reference Range Comments POC-GLUCOSE METER (BEAKER) 267 mg/dL 70-110 TESTED AT [address] (test hyib=9166) [facility] [id number] POCT-GLUCOSE [id number] 12:30:00 Test Item Value Reference Range Comments POC-GLUCOSE METER (BEAKER) 213 mg/dL 70-110 TESTED AT [address] (test seyo=3952) [facility] [id number] RAD, CHEST, 1 VIEW, NON [id number] 09:17:00Reason for exam:->post opShould this be performed [...] MDReport Verified Date/Time: 07/13/2018 09:17:51 Reading Location: [facility] Radiology ReadingRoom 09 :17 AMDIGOXIN [id number] 09:01:00 Test Item Value Reference Range Comments DIGOXIN LEVEL (BEAKER) (test vdyx=761) 0.8 ng/mL 0.8-2.0 Draw before next dose of DigoxinPOCT-GLUCOSE [id number] 08:47:00 Test Item Value Reference Range Comments POC-GLUCOSE METER (BEAKER) 240 mg/dL 70-110 TESTED AT [address] (test mgyy=2118) [facility] [address] [id number] 04:08:00 Test Item Value Reference Range Comments PHOSPHORUS (BEAKER) (test nrhl=529) 3.5 mg/dL 2.3-4.7 [id number] 04:08:00 Test Item Value Reference Range Comments MAGNESIUM (BEAKER) (test jvqo=712) 2.1 mg/dL 1.6-2.6 BASIC METABOLIC [id number] 04:08:00 Test Item Value Reference Range Comments SODIUM (BEAKER) (test 140 meq/L 136-145 yhwk=138) POTASSIUM (BEAKER) (test 4.8 meq/L 3.5-5.1 phvp=782) CHLORIDE (BEAKER) (test 105 meq/L 98-107 ukqk=840) CO2 (BEAKER) (test 28 meq/L 22-29 plzq=771) BLOOD UREA NITROGEN 21 mg/dL 7-21 (BEAKER) (test aorh=694) CREATININE (BEAKER) (test 1.33 mg/dL 0.57-1.25 msyv=627) GLUCOSE RANDOM (BEAKER) 123 mg/dL 70-105 (test egeu=580) CALCIUM (BEAKER) (test 8.8 mg/dL 8.4-10.2 surc=540) EGFR (BEAKER) (test 48 mL/min/1.73 sq m ESTIMATED GFR IS NOT wmqf=7533) ACCURATE CREATININE CLEARANCE IN PREDICTING GLOMERULAR FILTRATION RATE. ESTIMATED GFR IS NOT APPLICABLE FOR DIALYSIS PATIENTS. [id number] 03:51:00 Test Item Value Reference Range Comments PARTIAL THROMBOPLASTIN TIME (BEAKER) (test 43.3 seconds 22.5-36.0 ldtg=799) PROTHROMBIN TIME/[id number] 03:50:00 Test Item Value Reference Range Comments PROTIME (BEAKER) (test jmzj=180) 13.7 seconds 11.7-14.7 INR (BEAKER) (test fret=186) 1.0 <=5.9 RECOMMENDED COUMADIN/WARFARIN INR THERAPY RANGESSTANDARD DOSE: 2.0 - 3.0 Includes: PROPHYLAXIS forvenous thrombosis, systemic embolization; TREATMENT for venous thrombosis and/or pulmonary embolus.HIGH RISK: Target INR is 2.5-3.5 for patients with mechanical heart valves.CBC (HEMOGRAM ONLY)2018-07-13 03:24:00 Test Item Value Reference Range Comments WHITE BLOOD CELL COUNT (BEAKER) (test ziwb=842) 7.5 K/ L 3.5-10.5 RED BLOOD CELL COUNT (BEAKER) (test dbvi=023) 2.94 M/ L 3.93-5.22 HEMOGLOBIN (BEAKER) (test rvwd=759) 9.1 GM/DL 11.2-15.7 HEMATOCRIT (BEAKER) (test sgom=958) 30.9 % 34.1-44.9 MEAN CORPUSCULAR VOLUME (BEAKER) (test yxkc=863) 105.1 fL 79.4-94.8 MEAN CORPUSCULAR HEMOGLOBIN (BEAKER) (test 31.0 pg 25.6-32.2 rbaj=491) MEAN CORPUSCULAR HEMOGLOBIN CONC (BEAKER) (test 29.4 GM/DL 32.2-35.5 esyi=731) RED CELL DISTRIBUTION WIDTH (BEAKER) (test 19.8 % 11.7-14.4 cdkd=760) PLATELET COUNT (BEAKER) (test kiiq=279) 259 K/CU MM 150-450 MEAN PLATELET VOLUME (BEAKER) (test caoz=756) 9.7 fL 9.4-12.3 NUCLEATED RED BLOOD CELLS (BEAKER) (test 0 /100 WBC 0-0 fvqk=828) POCT-GLUCOSE [id number] 22:41:00 Test Item Value Reference Range Comments POC-GLUCOSE METER (BEAKER) 230 mg/dL 70-110 TESTED AT [address] (test wpft=4954) [place] [id number] POCT-GLUCOSE [id number] 18:56:00 Test Item Value Reference Range Comments POC-GLUCOSE METER (BEAKER) 98 mg/dL 70-110 TESTED AT [address] (test hosc=0425) [place] [address] POCT-GLUCOSE [id number] 12:04:00 Test Item Value Reference Range Comments POC-GLUCOSE METER (BEAKER) 169 mg/dL 70-110 TESTED AT [address] (test ujux=7885) [place] [id number] POCT-GLUCOSE [id number] 09:50:00 Test Item Value Reference Range Comments POC-GLUCOSE METER (BEAKER) 260 mg/dL 70-110 TESTED AT [address] (test ymad=7855) [place] [address] RAD, CHEST, 1 VIEW, NON [id number] 07:18:00Reason for exam:->post opShould this be performed at the bedside?->YesFINAL REPORT AP chest HISTORY: Postoperative. COMPARISON: 07/11/2018. IMPRESSION: Central line unchanged. Cardiomegaly. Thoracic aortic stent graft. Coarse interstitial markings similar to previous. Question developing right basilar atelectasis. No pneumothorax. Signed: Mitchel Jarquin MDReport Verified Date/ Time: 07/12/2018 07:18:25 Reading Location: [facility] Radiology Reading Room 07: 18 AMPOCT-GLUCOSE [id number] 06:54:00 Test Item Value Reference Range Comments POC-GLUCOSE METER (BEAKER) 193 mg/dL 70-110 TESTED AT [address] (test lgot=4100) [place] [address] [id number] 04:51:00 Test Item Value Reference Range Comments PARTIAL THROMBOPLASTIN TIME (BEAKER) (test 42.6 seconds 22.5-36.0 pioe=501) PROTHROMBIN TIME/[id number] 04:42:00 Test Item Value Reference Range Comments PROTIME (BEAKER) (test ledl=343) 13.7 seconds 11.7-14.7 INR (BEAKER) (test rjcd=958) 1.0 <=5.9 RECOMMENDED COUMADIN/WARFARIN INR THERAPY RANGESSTANDARD DOSE: 2.0 - 3.0 Includes: PROPHYLAXIS forvenous thrombosis, systemic embolization; TREATMENT for venous thrombosis and/or pulmonary embolus.HIGH RISK: Target INR is 2.5-3.5 for patients with mechanical heart valves.[id number] 04:31:00 Test Item Value Reference Range Comments PHOSPHORUS (BEAKER) (test zcpg=936) 2.4 mg/dL 2.3-4.7 [id number] 04:31:00 Test Item Value Reference Range Comments MAGNESIUM (BEAKER) (test hnqd=007) 2.3 mg/dL 1.6-2.6 BASIC METABOLIC [id number] 04:31:00 Test Item Value Reference Range Comments SODIUM (BEAKER) (test 141 meq/L 136-145 anwa=954) POTASSIUM (BEAKER) (test 4.5 meq/L 3.5-5.1 pewp=061) CHLORIDE (BEAKER) (test 106 meq/L 98-107 gglo=707) CO2 (BEAKER) (test 31 meq/L 22-29 rwjw=945) BLOOD UREA NITROGEN 26 mg/dL 7-21 (BEAKER) (test dswd=876) CREATININE (BEAKER) (test 1.41 mg/dL 0.57-1.25 kjer=806) GLUCOSE RANDOM (BEAKER) 63 mg/dL 70-105 (test dzze=788) CALCIUM (BEAKER) (test 8.7 mg/dL 8.4-10.2 kefw=921) EGFR (BEAKER) (test 45 mL/min/1.73 sq m ESTIMATED GFR IS NOT fwvy=0271) ACCURATE CREATININE CLEARANCE IN PREDICTING GLOMERULAR FILTRATION RATE. ESTIMATED GFR IS NOT APPLICABLE FOR DIALYSIS PATIENTS. CBC (HEMOGRAM ONLY)2018-07-12 04:23:00 Test Item Value Reference Range Comments WHITE BLOOD CELL COUNT (BEAKER) (test ipwp=157) 7.0 K/ L 3.5-10.5 RED BLOOD CELL COUNT (BEAKER) (test qvag=973) 2.79 M/ L 3.93-5.22 HEMOGLOBIN (BEAKER) (test tscq=109) 8.6 GM/DL 11.2-15.7 HEMATOCRIT (BEAKER) (test mpcl=860) 28.3 % 34.1-44.9 MEAN CORPUSCULAR VOLUME (BEAKER) (test gxsu=354) 101.4 fL 79.4-94.8 MEAN CORPUSCULAR HEMOGLOBIN (BEAKER) (test 30.8 pg 25.6-32.2 axyd=059) MEAN CORPUSCULAR HEMOGLOBIN CONC (BEAKER) (test 30.4 GM/DL 32.2-35.5 nxit=606) RED CELL DISTRIBUTION WIDTH (BEAKER) (test 20.2 % 11.7-14.4 ackg=873) PLATELET COUNT (BEAKER) (test jbdc=558) 276 K/CU MM 150-450 MEAN PLATELET VOLUME (BEAKER) (test mlof=284) 10.3 fL 9.4-12.3 NUCLEATED RED BLOOD CELLS (BEAKER) (test 0 /100 WBC 0-0 esmf=340) POCT-GLUCOSE [id number] 00:19:00 Test Item Value Reference Range Comments POC-GLUCOSE METER (BEAKER) 404 mg/dL 70-110 TESTED AT [address] (test trzx=5820) [facility] [address] POCT-GLUCOSE [id number] 18:10:00 Test Item Value Reference Range Comments POC-GLUCOSE METER (BEAKER) 268 mg/dL 70-110 TESTED AT [address] (test pzpp=9035) [facility] [address] POCT-GLUCOSE [id number] 12:22:00 Test Item Value Reference Range Comments POC-GLUCOSE METER (BEAKER) 221 mg/dL 70-110 TESTED AT [address] (test jurm=2286) [facility] [address] RAD, CHEST, 1 VIEW, NON [id number] 07:27:00Reason for exam:->post opShould this be performed [...] MDReport Verified Date/Time: 2018 07:27:41 Reading [facility]: [facility] Rad[facility] Reading Room POCT- GLUCOSE [id number] 05:28:00 Test Item Value Reference Range Comments POC-GLUCOSE METER (BEAKER) 166 mg/dL 70-110 TESTED AT [facility] [address] [facility] (test mnhh=0181) [facility] [address] [id number] 04:08:00 Test Item Value Reference Range Comments PHOSPHORUS (BEAKER) (test ssxe=587) 3.0 mg/dL 2.3-4.7 [id number] 04:08:00 Test Item Value Reference Range Comments MAGNESIUM (BEAKER) (test giep=189) 1.8 mg/dL 1.6-2.6 BASIC METABOLIC [id number] 04:08:00 Test Item Value Reference Range Comments SODIUM (BEAKER) (test 138 meq/L 136-145 ujzt=534) POTASSIUM (BEAKER) (test 4.6 meq/L 3.5-5.1 uool=138) CHLORIDE (BEAKER) (test 102 meq/L 98-107 atlq=540) CO2 (BEAKER) (test 29 meq/L 22-29 odkq=107) BLOOD UREA NITROGEN 28 mg/dL 7-21 (BEAKER) (test rsse=688) CREATININE (BEAKER) (test 1.64 mg/dL 0.57-1.25 hchg=380) GLUCOSE RANDOM (BEAKER) 196 mg/dL 70-105 (test cjkp=056) CALCIUM (BEAKER) (test 8.8 mg/dL 8.4-10.2 fdpa=536) EGFR (BEAKER) (test 37 mL/min/1.73 sq m ESTIMATED GFR IS NOT bqcc=0298) ACCURATE CREATININE CLEARANCE IN PREDICTING GLOMERULAR FILTRATION RATE. ESTIMATED GFR IS NOT APPLICABLE FOR DIALYSIS PATIENTS. [id number] 04:06:00 Test Item Value Reference Range Comments PARTIAL THROMBOPLASTIN TIME (BEAKER) (test 51.7 seconds 22.5-36.0 wmap=361) PROTHROMBIN [id number] 04:05:00 Test Item Value Reference Range Comments PROTIME (BEAKER) (test zldb=344) 14.1 seconds 11.7-14.7 INR (BEAKER) (test eyab=284) 1.1 <=5.9 RECOMMENDED COUMADIN/WARFARIN INR THERAPY RANGESSTANDARD DOSE: 2.0 - 3.0 Includes: PROPHYLAXIS forvenous thrombosis, systemic embolization; TREATMENT for venous thrombosis and/or pulmonary embolus.HIGH RISK: Target INR is 2.5-3.5 for patients with mechanical heart valves.CBC (HEMOGRAM ONLY)2018-07-11 03:53:00 Test Item Value Reference Range Comments WHITE BLOOD CELL COUNT (BEAKER) (test xpjn=515) 6.3 K/ L 3.5-10.5 RED BLOOD CELL COUNT (BEAKER) (test fimn=551) 2.90 M/ L 3.93-5.22 HEMOGLOBIN (BEAKER) (test rsqx=612) 8.8 GM/DL 11.2-15.7 HEMATOCRIT (BEAKER) (test yhci=087) 29.7 % 34.1-44.9 MEAN CORPUSCULAR VOLUME (BEAKER) (test lpvl=348) 102.4 fL 79.4-94.8 MEAN CORPUSCULAR HEMOGLOBIN (BEAKER) (test 30.3 pg 25.6-32.2 uwgg=007) MEAN CORPUSCULAR HEMOGLOBIN CONC (BEAKER) (test 29.6 GM/DL 32.2-35.5 inhn=483) RED CELL DISTRIBUTION WIDTH (BEAKER) (test 21.0 % 11.7-14.4 zufy=971) PLATELET COUNT (BEAKER) (test arcx=473) 270 K/CU MM 150-450 MEAN PLATELET VOLUME (BEAKER) (test anhm=492) 10.1 fL 9.4-12.3 NUCLEATED RED BLOOD CELLS (BEAKER) (test 0 /100 WBC 0-0 hjpb=459) POCT-GLUCOSE [id number] 00:38:00 Test Item Value Reference Range Comments POC-GLUCOSE METER (BEAKER) 198 mg/dL 70-110 TESTED AT [facility] [address] [facility] (test fuqq=7836) [facility] [address] POCT-GLUCOSE [id number] 18:42:00 Test Item Value Reference Range Comments POC-GLUCOSE METER (BEAKER) 240 mg/dL 70-110 TESTED AT [address] (test abyi=8662) [facility] [address] POCT-GLUCOSE [id number] 12:48:00 Test Item Value Reference Range Comments POC-GLUCOSE METER (BEAKER) 248 mg/dL 70-110 TESTED AT [address] (test vadf=3921) [place] [id number] RAD, CHEST, 1 VIEW, NON [id number] 08:53:00Reason for exam:->post opShould this be performed [...] Mckeon Verified Date/Time: 07/10/2018 08:53:53 Reading Location: [address] Reading Room POCT-GLUCOSE [id number] 06:33:00 Test Item Value Reference Range Comments POC-GLUCOSE METER (BEAKER) 129 mg/dL 70-110 TESTED AT [address] (test ajke=9613) [facility] [address] POCT-GLUCOSE [id number] 05:36:00 Test Item Value Reference Range Comments POC-GLUCOSE METER (BEAKER) 55 mg/dL 70-110 TESTED AT [address] (test kuwc=5491) [place] [address] [id number] 04:15:00 Test Item Value Reference Range Comments PHOSPHORUS (BEAKER) (test ptek=785) 3.0 mg/dL 2.3-4.7 [id number] 04:15:00 Test Item Value Reference Range Comments MAGNESIUM (BEAKER) (test gswa=018) 2.0 mg/dL 1.6-2.6 BASIC METABOLIC [id number] 04:15:00 Test Item Value Reference Range Comments SODIUM (BEAKER) (test 138 meq/L 136-145 cclb=052) POTASSIUM (BEAKER) (test 4.5 meq/L 3.5-5.1 fsjf=913) CHLORIDE (BEAKER) (test 103 meq/L 98-107 vujo=746) CO2 (BEAKER) (test 27 meq/L 22-29 ddwi=226) BLOOD UREA NITROGEN 32 mg/dL 7-21 (BEAKER) (test umrw=569) CREATININE (BEAKER) (test 1.55 mg/dL 0.57-1.25 xkku=236) GLUCOSE RANDOM (BEAKER) 121 mg/dL 70-105 (test iwwh=933) CALCIUM (BEAKER) (test 8.8 mg/dL 8.4-10.2 fcfy=584) EGFR (BEAKER) (test 40 mL/min/1.73 sq m ESTIMATED GFR IS NOT epmz=3246) ACCURATE CREATININE CLEARANCE IN PREDICTING GLOMERULAR FILTRATION RATE. ESTIMATED GFR IS NOT APPLICABLE FOR DIALYSIS PATIENTS. [id number] 03:41:00 Test Item Value Reference Range Comments PARTIAL THROMBOPLASTIN TIME (BEAKER) (test 50.1 seconds 22.5-36.0 hubr=224) PROTHROMBIN [id number] 03:40:00 Test Item Value Reference Range Comments PROTIME (BEAKER) (test olqz=039) 14.6 seconds 11.7-14.7 INR (BEAKER) (test bznv=708) 1.1 <=5.9 RECOMMENDED COUMADIN/WARFARIN INR THERAPY RANGESSTANDARD DOSE: 2.0 - 3.0 Includes: PROPHYLAXIS forvenous thrombosis, systemic embolization; TREATMENT for venous thrombosis and/or pulmonary embolus.HIGH RISK: Target INR is 2.5-3.5 for patients with mechanical heart valves.CBC (HEMOGRAM ONLY)2018-07-10 03:38:00 Test Item Value Reference Range Comments WHITE BLOOD CELL COUNT (BEAKER) (test bsde=794) 6.3 K/ L 3.5-10.5 RED BLOOD CELL COUNT (BEAKER) (test tdnr=375) 2.47 M/ L 3.93-5.22 HEMOGLOBIN (BEAKER) (test ffic=198) 7.6 GM/DL 11.2-15.7 HEMATOCRIT (BEAKER) (test obve=501) 26.0 % 34.1-44.9 MEAN CORPUSCULAR VOLUME (BEAKER) (test dnef=159) 105.3 fL 79.4-94.8 MEAN CORPUSCULAR HEMOGLOBIN (BEAKER) (test 30.8 pg 25.6-32.2 rvri=440) MEAN CORPUSCULAR HEMOGLOBIN CONC (BEAKER) (test 29.2 GM/DL 32.2-35.5 adjw=113) RED CELL DISTRIBUTION WIDTH (BEAKER) (test 17.1 % 11.7-14.4 xzlh=872) PLATELET COUNT (BEAKER) (test wnua=591) 301 K/CU MM 150-450 MEAN PLATELET VOLUME (BEAKER) (test woca=992) 10.0 fL 9.4-12.3 NUCLEATED RED BLOOD CELLS (BEAKER) (test 0 /100 WBC 0-0 phgq=773) POCT-GLUCOSE [id number] 00:03:00 Test Item Value Reference Range Comments POC-GLUCOSE METER (BEAKER) 317 mg/dL 70-110 Notified PAULA BERGER/TESTED AT [facility] (test gobt=5734) [address] [place], [place] [address] POCT-GLUCOSE [id number] 17:44:00 Test Item Value Reference Range Comments POC-GLUCOSE METER (BEAKER) 129 mg/dL 70-110 TESTED AT [address] (test phki=6805) [place] [id number] POCT-GLUCOSE [id number] 12:13:00 Test Item Value Reference Range Comments POC-GLUCOSE METER (BEAKER) 283 mg/dL 70-110 TESTED AT [address] (test lkzy=1005) [place] [id number] RAD, CHEST, 1 VIEW, NON [id number] 07:35:00Reason for exam:->post opShould this be performed [...] MDReport Verified Date/Time: 07/09/2018 07:35:48 Reading Location: [facility] B1 C013Y CT Body Reading Room POCT-GLUCOSE [id number] 05:13:00 Test Item Value Reference Range Comments POC-GLUCOSE METER (BEAKER) 186 mg/dL 70-110 TESTED AT [facility] [address] [facility] (test gyee=6844) [facility] [address] [id number] 04:51:00 Test Item Value Reference Range Comments PHOSPHORUS (BEAKER) (test uqik=322) 3.8 mg/dL 2.3-4.7 [id number] 04:51:00 Test Item Value Reference Range Comments MAGNESIUM (BEAKER) (test dufr=578) 2.1 mg/dL 1.6-2.6 BASIC METABOLIC [id number] 04:51:00 Test Item Value Reference Range Comments SODIUM (BEAKER) (test 138 meq/L 136-145 tyyu=932) POTASSIUM (BEAKER) (test 4.9 meq/L 3.5-5.1 hpho=446) CHLORIDE (BEAKER) (test 103 meq/L 98-107 hitf=529) CO2 (BEAKER) (test 29 meq/L 22-29 bcfu=922) BLOOD UREA NITROGEN 33 mg/dL 7-21 (BEAKER) (test fwxq=256) CREATININE (BEAKER) (test 1.78 mg/dL 0.57-1.25 ebjl=592) GLUCOSE RANDOM (BEAKER) 155 mg/dL 70-105 (test nitw=233) CALCIUM (BEAKER) (test 9.0 mg/dL 8.4-10.2 uxpn=386) EGFR (BEAKER) (test 34 mL/min/1.73 sq m ESTIMATED GFR IS NOT mimg=9398) ACCURATE CREATININE CLEARANCE IN PREDICTING GLOMERULAR FILTRATION RATE. ESTIMATED GFR IS NOT APPLICABLE FOR DIALYSIS PATIENTS. [id number] 04:30:00 Test Item Value Reference Range Comments PARTIAL THROMBOPLASTIN TIME (BEAKER) (test 63.2 seconds 22.5-36.0 gyml=366) PROTHROMBIN [id number] 04:29:00 Test Item Value Reference Range Comments PROTIME (BEAKER) (test vugz=998) 14.6 seconds 11.7-14.7 INR (BEAKER) (test ejzy=278) 1.1 <=5.9 RECOMMENDED COUMADIN/WARFARIN INR THERAPY RANGESSTANDARD DOSE: 2.0 - 3.0 Includes: PROPHYLAXIS forvenous thrombosis, systemic embolization; TREATMENT for venous thrombosis and/or pulmonary embolus.HIGH RISK: Target INR is 2.5-3.5 for patients with mechanical heart valves.CBC (HEMOGRAM ONLY)2018-07-09 04:18:00 Test Item Value Reference Range Comments WHITE BLOOD CELL COUNT (BEAKER) (test zxni=508) 6.8 K/ L 3.5-10.5 RED BLOOD CELL COUNT (BEAKER) (test axcv=635) 2.73 M/ L 3.93-5.22 HEMOGLOBIN (BEAKER) (test uyry=599) 8.4 GM/DL 11.2-15.7 HEMATOCRIT (BEAKER) (test gyor=016) 28.7 % 34.1-44.9 MEAN CORPUSCULAR VOLUME (BEAKER) (test ktgi=398) 105.1 fL 79.4-94.8 MEAN CORPUSCULAR HEMOGLOBIN (BEAKER) (test 30.8 pg 25.6-32.2 hbte=337) MEAN CORPUSCULAR HEMOGLOBIN CONC (BEAKER) (test 29.3 GM/DL 32.2-35.5 dksy=650) RED CELL DISTRIBUTION WIDTH (BEAKER) (test 17.2 % 11.7-14.4 ykaj=368) PLATELET COUNT (BEAKER) (test sfjw=417) 263 K/CU MM 150-450 MEAN PLATELET VOLUME (BEAKER) (test dxqu=312) 9.9 fL 9.4-12.3 NUCLEATED RED BLOOD CELLS (BEAKER) (test 0 /100 WBC 0-0 ylcx=132) POCT-GLUCOSE [id number] 23:27:00 Test Item Value Reference Range Comments POC-GLUCOSE METER (BEAKER) 141 mg/dL 70-110 TESTED AT [address] (test dmaq=7915) [facility] [address] POCT-GLUCOSE [id number] 19:30:00 Test Item Value Reference Range Comments POC-GLUCOSE METER (BEAKER) 234 mg/dL 70-110 TESTED AT [place] [id number] [facility] (test ctfb=1463) [facility] [address] POCT-GLUCOSE [id number] 11:55:00 Test Item Value Reference Range Comments POC-GLUCOSE METER (BEAKER) 317 mg/dL 70-110 TESTED AT [place] [id number] [facility] (test yyds=2463) [facility] [address] [id number] 05:14:00 Test Item Value Reference Range Comments PHOSPHORUS (BEAKER) (test fzlz=048) 3.8 mg/dL 2.3-4.7 [id number] 05:14:00 Test Item Value Reference Range Comments MAGNESIUM (BEAKER) (test lxvh=494) 2.1 mg/dL 1.6-2.6 BASIC METABOLIC [id number] 05:14:00 Test Item Value Reference Range Comments SODIUM (BEAKER) (test 137 meq/L 136-145 nnty=070) POTASSIUM (BEAKER) (test 4.6 meq/L 3.5-5.1 qmpt=859) CHLORIDE (BEAKER) (test 103 meq/L 98-107 ahvm=884) CO2 (BEAKER) (test 26 meq/L 22-29 gyrq=855) BLOOD UREA NITROGEN 31 mg/dL 7-21 (BEAKER) (test dwts=066) CREATININE (BEAKER) (test 1.63 mg/dL 0.57-1.25 hbld=343) GLUCOSE RANDOM (BEAKER) 244 mg/dL 70-105 (test liyz=416) CALCIUM (BEAKER) (test 9.2 mg/dL 8.4-10.2 etky=085) EGFR (BEAKER) (test 38 mL/min/1.73 sq m ESTIMATED GFR IS NOT fcul=1916) ACCURATE CREATININE CLEARANCE IN PREDICTING GLOMERULAR FILTRATION RATE. ESTIMATED GFR IS NOT APPLICABLE FOR DIALYSIS PATIENTS. RAD, CHEST, 1 VIEW, NON [id number] 04:48:00Reason for exam:->post opShould this be performed [...] Verified Date/Time: 07/08/2018 04:48:56 Reading Location : [address] Reading Room Electronicallysigned by: NAVI GARCIA M.D. on 07/08/2018 04:48 [id number] 04:24:00 Test Item Value Reference Range Comments PARTIAL THROMBOPLASTIN TIME (BEAKER) (test 54.7 seconds 22.5-36.0 xrrl=864) PROTHROMBIN [id number] 04:23:00 Test Item Value Reference Range Comments PROTIME (BEAKER) (test eykz=022) 14.8 seconds 11.7-14.7 INR (BEAKER) (test lkvo=025) 1.2 <=5.9 RECOMMENDED COUMADIN/WARFARIN INR THERAPY RANGESSTANDARD DOSE: 2.0 - 3.0 Includes: PROPHYLAXIS forvenous thrombosis, systemic embolization; TREATMENT for venous thrombosis and/or pulmonary embolus.HIGH RISK: Target INR is 2.5-3.5 for patients with mechanical heart valves.CBC (HEMOGRAM ONLY)2018-07-08 04:02:00 Test Item Value Reference Range Comments WHITE BLOOD CELL COUNT (BEAKER) (test fuzf=651) 6.7 K/ L 3.5-10.5 RED BLOOD CELL COUNT (BEAKER) (test gafc=885) 2.79 M/ L 3.93-5.22 HEMOGLOBIN (BEAKER) (test ldxc=455) 8.6 GM/DL 11.2-15.7 HEMATOCRIT (BEAKER) (test hlkk=632) 29.0 % 34.1-44.9 MEAN CORPUSCULAR VOLUME (BEAKER) (test hbqr=653) 103.9 fL 79.4-94.8 MEAN CORPUSCULAR HEMOGLOBIN (BEAKER) (test 30.8 pg 25.6-32.2 wggv=145) MEAN CORPUSCULAR HEMOGLOBIN CONC (BEAKER) (test 29.7 GM/DL 32.2-35.5 kiju=072) RED CELL DISTRIBUTION WIDTH (BEAKER) (test 17.2 % 11.7-14.4 yxch=718) PLATELET COUNT (BEAKER) (test ypre=502) 295 K/CU MM 150-450 MEAN PLATELET VOLUME (BEAKER) (test weoi=347) 10.2 fL 9.4-12.3 NUCLEATED RED BLOOD CELLS (BEAKER) (test 0 /100 WBC 0-0 izzr=266) RAD, CHEST, 1 VIEW, NON [id number] 08:41:00Reason for exam:->post opShould this be performed [...] MDReport Verified Date/Time: 07/07/2018 08:41:39 Reading Location: [facility] Radiology Reading Room [id number] 05:37:00 Test Item Value Reference Range Comments PHOSPHORUS (BEAKER) (test gqha=462) 3.0 mg/dL 2.3-4.7 [id number] 05:37:00 Test Item Value Reference Range Comments MAGNESIUM (BEAKER) (test sbjc=509) 2.1 mg/dL 1.6-2.6 BASIC METABOLIC [id number] 05:37:00 Test Item Value Reference Range Comments SODIUM (BEAKER) (test 137 meq/L 136-145 ahmb=671) POTASSIUM (BEAKER) (test 4.6 meq/L 3.5-5.1 syry=273) CHLORIDE (BEAKER) (test 102 meq/L 98-107 inbh=157) CO2 (BEAKER) (test 25 meq/L 22-29 qnvc=430) BLOOD UREA NITROGEN 27 mg/dL 7-21 (BEAKER) (test bwnw=018) CREATININE (BEAKER) (test 1.44 mg/dL 0.57-1.25 unko=623) GLUCOSE RANDOM (BEAKER) 191 mg/dL 70-105 (test gaos=475) CALCIUM (BEAKER) (test 9.2 mg/dL 8.4-10.2 tstz=866) EGFR (BEAKER) (test 43 mL/min/1.73 sq m ESTIMATED GFR IS NOT uutl=4664) ACCURATE CREATININE CLEARANCE IN PREDICTING GLOMERULAR FILTRATION RATE. ESTIMATED GFR IS NOT APPLICABLE FOR DIALYSIS PATIENTS. [id number] 05:12:00 Test Item Value Reference Range Comments PARTIAL THROMBOPLASTIN TIME (BEAKER) (test 42.9 seconds 22.5-36.0 mnrb=292) PROTHROMBIN TIME/[id number] 05:11:00 Test Item Value Reference Range Comments PROTIME (BEAKER) (test wvlk=899) 14.1 seconds 11.7-14.7 INR (BEAKER) (test flft=478) 1.1 <=5.9 RECOMMENDED COUMADIN/WARFARIN INR THERAPY RANGESSTANDARD DOSE: 2.0 - 3.0 Includes: PROPHYLAXIS forvenous thrombosis, systemic embolization; TREATMENT for venous thrombosis and/or pulmonary embolus.HIGH RISK: Target INR is 2.5-3.5 for patients with mechanical heart valves.CBC (HEMOGRAM ONLY)2018-07-07 05:01:00 Test Item Value Reference Range Comments WHITE BLOOD CELL COUNT (BEAKER) (test efew=167) 6.9 K/ L 3.5-10.5 RED BLOOD CELL COUNT (BEAKER) (test fdkz=463) 2.84 M/ L 3.93-5.22 HEMOGLOBIN (BEAKER) (test fdnv=371) 8.8 GM/DL 11.2-15.7 HEMATOCRIT (BEAKER) (test rinr=244) 29.2 % 34.1-44.9 MEAN CORPUSCULAR VOLUME (BEAKER) (test nptu=910) 102.8 fL 79.4-94.8 MEAN CORPUSCULAR HEMOGLOBIN (BEAKER) (test 31.0 pg 25.6-32.2 gbpq=926) MEAN CORPUSCULAR HEMOGLOBIN CONC (BEAKER) (test 30.1 GM/DL 32.2-35.5 ejqy=450) RED CELL DISTRIBUTION WIDTH (BEAKER) (test 17.0 % 11.7-14.4 inmb=395) PLATELET COUNT (BEAKER) (test tfcp=836) 270 K/CU MM 150-450 MEAN PLATELET VOLUME (BEAKER) (test fqel=551) 10.2 fL 9.4-12.3 NUCLEATED RED BLOOD CELLS (BEAKER) (test 0 /100 WBC 0-0 dicw=144) RAD, CHEST, 1 VIEW, NON [id number] 17:48:00Reason for exam:->Confirm PICC line placementShould this [...] or definite pleural effusion. Signed: Geo Rico Cox Monettort Verified Date/Time: 07/06/2018 17:48:54 Reading Location: [address] Consult Reading Room Electronically signed by: GEO RICO M.D. on 2018 05:48 [id number] 17:23:00 Test Item Value Reference Range Comments MAGNESIUM (BEAKER) (test mhkb=732) 2.2 mg/dL 1.6-2.6 BASIC METABOLIC [id number] 17:23:00 Test Item Value Reference Range Comments SODIUM (BEAKER) (test 137 meq/L 136-145 uokq=924) POTASSIUM (BEAKER) (test 4.9 meq/L 3.5-5.1 wbjm=080) CHLORIDE (BEAKER) (test 103 meq/L 98-107 qeaj=849) CO2 (BEAKER) (test 25 meq/L 22-29 raqe=845) BLOOD UREA NITROGEN 25 mg/dL 7-21 (BEAKER) (test pruh=164) CREATININE (BEAKER) (test 1.41 mg/dL 0.57-1.25 wess=205) GLUCOSE RANDOM (BEAKER) 219 mg/dL 70-105 (test odke=100) CALCIUM (BEAKER) (test 9.0 mg/dL 8.4-10.2 oeyh=276) EGFR (BEAKER) (test 45 mL/min/1.73 sq m ESTIMATED GFR IS NOT ncug=9687) ACCURATE CREATININE CLEARANCE IN PREDICTING GLOMERULAR FILTRATION RATE. ESTIMATED GFR IS NOT APPLICABLE FOR DIALYSIS PATIENTS. BLOOD GAS, [id number] 16:33:00 Test Item Value Reference Range Comments PH ARTERIAL (BEAKER) (test rpxg=452) 7.46 7.35-7.45 PCO2 ARTERIAL (BEAKER) (test ygaa=689) 42 mmHg 35-45 PO2 ARTERIAL (BEAKER) (test fjrv=022) 63 mmHg 80-90 O2 SATURATION ARTERIAL (BEAKER) (test kklp=635) 93.1 % 96.0-97.0 HCO3 ARTERIAL (BEAKER) (test cotu=584) 29 mmol/L 21-29 BASE EXCESS ARTERIAL (BEAKER) (test rnuf=977) 4.4 mmol/L -2.0-3.0 PATIENT TEMPERATURE (BEAKER) (test wdey=6275) 37.0 C FIO2 (BEAKER) (test rreb=3653) 32.0 % RAD, CHEST, 1 VIEW, NON [id number] 13:22:00Reason for exam:->post opShould this be performed at the bedside?->YesFINAL REPORT Chest one view. Clinical history: post op Comparison: 07/05/2018 Discussion: A frontal chest is provided. Cardiomediastinal contours are unchanged. A left IJ line is in stable position. There is mild pulmonary edema. No new consolidation. No pneumothorax. Small bilateral pleural effusions are present. Signed: Morgan Cheng Verified Date/Time: 07/06/2018 13:22:02 Reading Location: [address] Consult Reading Room [id number] 04:30:00 Test Item Value Reference Range Comments PHOSPHORUS (BEAKER) (test kpiy=061) 3.2 mg/dL 2.3-4.7 [id number] 04:30:00 Test Item Value Reference Range Comments MAGNESIUM (BEAKER) (test lffe=930) 2.2 mg/dL 1.6-2.6 BASIC METABOLIC [id number] 04:30:00 Test Item Value Reference Range Comments SODIUM (BEAKER) (test 138 meq/L 136-145 qcoh=314) POTASSIUM (BEAKER) (test 4.4 meq/L 3.5-5.1 xsmj=121) CHLORIDE (BEAKER) (test 104 meq/L 98-107 yuxy=266) CO2 (BEAKER) (test 28 meq/L 22-29 tyjw=426) BLOOD UREA NITROGEN 25 mg/dL 7-21 (BEAKER) (test nifu=464) CREATININE (BEAKER) (test 1.43 mg/dL 0.57-1.25 pxas=798) GLUCOSE RANDOM (BEAKER) 207 mg/dL 70-105 (test wlma=824) CALCIUM (BEAKER) (test 8.9 mg/dL 8.4-10.2 evnp=614) EGFR (BEAKER) (test 44 mL/min/1.73 sq m ESTIMATED GFR IS NOT zhib=8328) ACCURATE CREATININE CLEARANCE IN PREDICTING GLOMERULAR FILTRATION RATE. ESTIMATED GFR IS NOT APPLICABLE FOR DIALYSIS PATIENTS. PROTHROMBIN TIME/[id number] 04:06:00 Test Item Value Reference Range Comments PROTIME (BEAKER) (test qxyt=454) 14.6 seconds 11.7-14.7 INR (BEAKER) (test jvjf=011) 1.1 <=5.9 RECOMMENDED COUMADIN/WARFARIN INR THERAPY RANGESSTANDARD DOSE: 2.0 - 3.0 Includes: PROPHYLAXIS forvenous thrombosis, systemic embolization; TREATMENT for venous thrombosis and/or pulmonary embolus.HIGH RISK: Target INR is 2.5-3.5 for patients with mechanical heart valves.[id number] 04:06:00 Test Item Value Reference Range Comments PARTIAL THROMBOPLASTIN TIME (BEAKER) (test 47.8 seconds 22.5-36.0 qrtg=334) CBC (HEMOGRAM ONLY)2018-07-06 03:53:00 Test Item Value Reference Range Comments WHITE BLOOD CELL COUNT (BEAKER) (test dodx=784) 7.1 K/ L 3.5-10.5 RED BLOOD CELL COUNT (BEAKER) (test qxmo=157) 2.77 M/ L 3.93-5.22 HEMOGLOBIN (BEAKER) (test ixbr=774) 8.4 GM/DL 11.2-15.7 HEMATOCRIT (BEAKER) (test cjfz=869) 28.6 % 34.1-44.9 MEAN CORPUSCULAR VOLUME (BEAKER) (test wbfd=238) 103.2 fL 79.4-94.8 MEAN CORPUSCULAR HEMOGLOBIN (BEAKER) (test 30.3 pg 25.6-32.2 sqae=249) MEAN CORPUSCULAR HEMOGLOBIN CONC (BEAKER) (test 29.4 GM/DL 32.2-35.5 ohjq=849) RED CELL DISTRIBUTION WIDTH (BEAKER) (test 17.1 % 11.7-14.4 kadf=878) PLATELET COUNT (BEAKER) (test msle=106) 267 K/CU MM 150-450 MEAN PLATELET VOLUME (BEAKER) (test ytar=427) 9.9 fL 9.4-12.3 NUCLEATED RED BLOOD CELLS (BEAKER) (test 0 /100 WBC 0-0 aenk=883) HEPATIC FUNCTION [id number] 17:51:00 Test Item Value Reference Range Comments TOTAL PROTEIN (BEAKER) (test zmok=387) 6.2 gm/dL 6.0-8.3 ALBUMIN (BEAKER) (test twly=5079) 3.2 g/dL 3.5-5.0 BILIRUBIN TOTAL (BEAKER) (test mtvm=668) 0.7 mg/dL 0.2-1.2 BILIRUBIN DIRECT (BEAKER) (test raqg=247) 0.5 mg/dL 0.1-0.5 ALKALINE PHOSPHATASE (BEAKER) (test kunv=690) 84 U/L 40-150 AST (SGOT) (BEAKER) (test lubd=668) 16 U/L 5-34 ALT (SGPT) (BEAKER) (test oojs=731) 9 U/L 6-55 RAD, CHEST, 1 VIEW, NON [id number] 08:39:00Reason for exam:->post opShould this be performed [...] MDReport Verified Date/Time: 07/05/2018 08:39:46 Reading Location: [facility] Radiology Reading Room [id number] 04:33:00 Test Item Value Reference Range Comments MAGNESIUM (BEAKER) (test 2.6 mg/dL 1.6-2.6 Specimen slightly hemolyzed ftlc=375) [id number] 04:33:00 Test Item Value Reference Range Comments PHOSPHORUS (BEAKER) (test 2.9 mg/dL 2.3-4.7 Specimen slightly hemolyzed xbaf=272) BASIC METABOLIC [id number] 04:33:00 Test Item Value Reference Range Comments SODIUM (BEAKER) (test 139 meq/L 136-145 vrmr=187) POTASSIUM (BEAKER) (test 4.5 meq/L 3.5-5.1 Specimen slightly xdaw=748) hemolyzed CHLORIDE (BEAKER) (test 105 meq/L 98-107 ulnu=782) CO2 (BEAKER) (test 28 meq/L 22-29 liss=102) BLOOD UREA NITROGEN 26 mg/dL 7-21 (BEAKER) (test igio=960) CREATININE (BEAKER) (test 1.32 mg/dL 0.57-1.25 Specimen slightly grho=797) hemolyzed GLUCOSE RANDOM (BEAKER) 111 mg/dL 70-105 (test ikrw=113) CALCIUM (BEAKER) (test 8.5 mg/dL 8.4-10.2 xqir=474) EGFR (BEAKER) (test 48 mL/min/1.73 sq m ESTIMATED GFR IS NOT vvuy=8889) ACCURATE CREATININE CLEARANCE IN PREDICTING GLOMERULAR FILTRATION RATE. ESTIMATED GFR IS NOT APPLICABLE FOR DIALYSIS PATIENTS. [id number] 04:23:00 Test Item Value Reference Range Comments PARTIAL THROMBOPLASTIN TIME (BEAKER) (test 49.0 seconds 22.5-36.0 fbab=147) PROTHROMBIN [id number] 04:22:00 Test Item Value Reference Range Comments PROTIME (BEAKER) (test qdhl=118) 14.3 seconds 11.7-14.7 INR (BEAKER) (test vgsd=026) 1.1 <=5.9 RECOMMENDED COUMADIN/WARFARIN INR THERAPY RANGESSTANDARD DOSE: 2.0 - 3.0 Includes: PROPHYLAXIS forvenous thrombosis, systemic embolization; TREATMENT for venous thrombosis and/or pulmonary embolus.HIGH RISK: Target INR is 2.5-3.5 for patients with mechanical heart valves.CBC (HEMOGRAM ONLY)2018-07-05 04:13:00 Test Item Value Reference Range Comments WHITE BLOOD CELL COUNT (BEAKER) (test kxwe=985) 6.6 K/ L 3.5-10.5 RED BLOOD CELL COUNT (BEAKER) (test jpgb=615) 2.60 M/ L 3.93-5.22 HEMOGLOBIN (BEAKER) (test zmws=157) 7.9 GM/DL 11.2-15.7 HEMATOCRIT (BEAKER) (test djwc=452) 26.5 % 34.1-44.9 MEAN CORPUSCULAR VOLUME (BEAKER) (test ogry=723) 101.9 fL 79.4-94.8 MEAN CORPUSCULAR HEMOGLOBIN (BEAKER) (test 30.4 pg 25.6-32.2 anno=720) MEAN CORPUSCULAR HEMOGLOBIN CONC (BEAKER) (test 29.8 GM/DL 32.2-35.5 tvwk=423) RED CELL DISTRIBUTION WIDTH (BEAKER) (test 17.4 % 11.7-14.4 glei=370) PLATELET COUNT (BEAKER) (test vkbp=400) 248 K/CU MM 150-450 MEAN PLATELET VOLUME (BEAKER) (test vgpe=638) 10.4 fL 9.4-12.3 NUCLEATED RED BLOOD CELLS (BEAKER) (test 0 /100 WBC 0-0 ymgl=958) POCT-GLUCOSE [id number] 18:22:00 Test Item Value Reference Range Comments POC-GLUCOSE METER (BEAKER) 166 mg/dL 70-110 TESTED AT [facility] [address] (test srxx=8889) [facility] [address] RAD, CHEST, 1 VIEW, NON [id number] 08:37:00Reason for exam:->post opShould this be performed [...] Diaz Verified Date/Time: 07/04/2018 08:37:54 Reading Location: [facility] Radiology Reading Room Electronically signed by: VIRGINIA DIAZ M.D. on 2018 08:37 [id number] 04:36:00 Test Item Value Reference Range Comments PARTIAL THROMBOPLASTIN TIME (BEAKER) (test 49.7 seconds 22.5-36.0 eqly=527) PROTHROMBIN [id number] 04:35:00 Test Item Value Reference Range Comments PROTIME (BEAKER) (test fvfs=770) 15.0 seconds 11.7-14.7 INR (BEAKER) (test qlsx=927) 1.2 <=5.9 RECOMMENDED COUMADIN/WARFARIN INR THERAPY RANGESSTANDARD DOSE: 2.0 - 3.0 Includes: PROPHYLAXIS forvenous thrombosis, systemic embolization; TREATMENT for venous thrombosis and/or pulmonary embolus.HIGH RISK: Target INR is 2.5-3.5 for patients with mechanical heart valves.[id number] 04:35:00 Test Item Value Reference Range Comments PHOSPHORUS (BEAKER) (test ihdy=246) 2.5 mg/dL 2.3-4.7 [id number] 04:35:00 Test Item Value Reference Range Comments MAGNESIUM (BEAKER) (test eyyw=800) 2.2 mg/dL 1.6-2.6 BASIC METABOLIC [id number] 04:35:00 Test Item Value Reference Range Comments SODIUM (BEAKER) (test 138 meq/L 136-145 wwip=021) POTASSIUM (BEAKER) (test 3.8 meq/L 3.5-5.1 bkmk=866) CHLORIDE (BEAKER) (test 102 meq/L 98-107 ugka=016) CO2 (BEAKER) (test 30 meq/L 22-29 kyhz=835) BLOOD UREA NITROGEN 28 mg/dL 7-21 (BEAKER) (test fysq=423) CREATININE (BEAKER) (test 1.48 mg/dL 0.57-1.25 hlgy=775) GLUCOSE RANDOM (BEAKER) 175 mg/dL 70-105 (test rppf=725) CALCIUM (BEAKER) (test 8.6 mg/dL 8.4-10.2 koyc=562) EGFR (BEAKER) (test 42 mL/min/1.73 sq m ESTIMATED GFR IS NOT ynvn=9136) ACCURATE CREATININE CLEARANCE IN PREDICTING GLOMERULAR FILTRATION RATE. ESTIMATED GFR IS NOT APPLICABLE FOR DIALYSIS PATIENTS. CBC (HEMOGRAM ONLY)2018-07-04 04:16:00 Test Item Value Reference Range Comments WHITE BLOOD CELL COUNT (BEAKER) (test xtai=684) 7.4 K/ L 3.5-10.5 RED BLOOD CELL COUNT (BEAKER) (test tqgb=083) 2.76 M/ L 3.93-5.22 HEMOGLOBIN (BEAKER) (test ixod=855) 8.5 GM/DL 11.2-15.7 HEMATOCRIT (BEAKER) (test scax=026) 28.1 % 34.1-44.9 MEAN CORPUSCULAR VOLUME (BEAKER) (test vzbo=200) 101.8 fL 79.4-94.8 MEAN CORPUSCULAR HEMOGLOBIN (BEAKER) (test 30.8 pg 25.6-32.2 nuqf=154) MEAN CORPUSCULAR HEMOGLOBIN CONC (BEAKER) (test 30.2 GM/DL 32.2-35.5 puzs=162) RED CELL DISTRIBUTION WIDTH (BEAKER) (test 17.7 % 11.7-14.4 pnac=473) PLATELET COUNT (BEAKER) (test ofnb=796) 268 K/CU MM 150-450 MEAN PLATELET VOLUME (BEAKER) (test qgag=689) 10.2 fL 9.4-12.3 NUCLEATED RED BLOOD CELLS (BEAKER) (test 0 /100 WBC 0-0 ffho=738) [id number] 10:56:00 Test Item Value Reference Range Comments POTASSIUM (BEAKER) (test nqli=424) 4.3 meq/L 3.5-5.1 Check Serum Potassium level 30 minutes after IV potassium replacement completed.RAD, CHEST, 1 VIEW, NON [id number] 08:24:00Reason for exam:-> post opShould this be [...] Mckeon Verified Date/Time: 07/03/2018 08:24:18 Reading Location: [facility] Radiology Reading Room POCT-GLUCOSE [id number] 08:16:00 Test Item Value Reference Range Comments POC-GLUCOSE METER (BEAKER) 164 mg/dL 70-110 TESTED AT [facility] [address] [place] [address] (test cggp=0816) [facility] [address] RAD, ABDOMEN/KUB, 1 VIEW [id number] 06:21:00Reason for exam:->abd painShould this be performed [...] MDReport Verified Date/Time: 07/03/2018 06:21:16 Reading Location: [address] Transitional Reading Room [id number] 04:00:00 Test Item Value Reference Range Comments PHOSPHORUS (BEAKER) (test brvt=486) 2.3 mg/dL 2.3-4.7 [id number] 04:00:00 Test Item Value Reference Range Comments MAGNESIUM (BEAKER) (test qpsj=367) 1.9 mg/dL 1.6-2.6 BASIC METABOLIC [id number] 04:00:00 Test Item Value Reference Range Comments SODIUM (BEAKER) (test 139 meq/L 136-145 svwz=362) POTASSIUM (BEAKER) (test 3.5 meq/L 3.5-5.1 afpu=667) CHLORIDE (BEAKER) (test 103 meq/L 98-107 aswz=001) CO2 (BEAKER) (test 27 meq/L 22-29 tykd=415) BLOOD UREA NITROGEN 27 mg/dL 7-21 (BEAKER) (test eqqg=173) CREATININE (BEAKER) (test 1.40 mg/dL 0.57-1.25 eevr=088) GLUCOSE RANDOM (BEAKER) 123 mg/dL 70-105 (test qjpq=786) CALCIUM (BEAKER) (test 8.9 mg/dL 8.4-10.2 xvwy=634) EGFR (BEAKER) (test 45 mL/min/1.73 sq m ESTIMATED GFR IS NOT pzeo=8482) ACCURATE CREATININE CLEARANCE IN PREDICTING GLOMERULAR FILTRATION RATE. ESTIMATED GFR IS NOT APPLICABLE FOR DIALYSIS PATIENTS. [id number] 03:59:00 Test Item Value Reference Range Comments PARTIAL THROMBOPLASTIN TIME (BEAKER) (test 48.9 seconds 22.5-36.0 ibnd=196) PROTHROMBIN [id number] 03:58:00 Test Item Value Reference Range Comments PROTIME (BEAKER) (test bkzf=205) 15.3 seconds 11.7-14.7 INR (BEAKER) (test rsyu=881) 1.2 <=5.9 RECOMMENDED COUMADIN/WARFARIN INR THERAPY RANGESSTANDARD DOSE: 2.0 - 3.0 Includes: PROPHYLAXIS forvenous thrombosis, systemic embolization; TREATMENT for venous thrombosis and/or pulmonary embolus.HIGH RISK: Target INR is 2.5-3.5 for patients with mechanical heart valves.CBC (HEMOGRAM ONLY)2018-07-03 03:39:00 Test Item Value Reference Range Comments WHITE BLOOD CELL COUNT (BEAKER) (test wsdx=064) 8.1 K/ L 3.5-10.5 RED BLOOD CELL COUNT (BEAKER) (test uuua=744) 2.90 M/ L 3.93-5.22 HEMOGLOBIN (BEAKER) (test cesz=594) 9.0 GM/DL 11.2-15.7 HEMATOCRIT (BEAKER) (test khlh=895) 29.4 % 34.1-44.9 MEAN CORPUSCULAR VOLUME (BEAKER) (test kmif=967) 101.4 fL 79.4-94.8 MEAN CORPUSCULAR HEMOGLOBIN (BEAKER) (test 31.0 pg 25.6-32.2 pcqv=170) MEAN CORPUSCULAR HEMOGLOBIN CONC (BEAKER) (test 30.6 GM/DL 32.2-35.5 zzch=173) RED CELL DISTRIBUTION WIDTH (BEAKER) (test 17.8 % 11.7-14.4 mbzh=241) PLATELET COUNT (BEAKER) (test ponx=682) 245 K/CU MM 150-450 MEAN PLATELET VOLUME (BEAKER) (test dkpo=884) 9.8 fL 9.4-12.3 NUCLEATED RED BLOOD CELLS (BEAKER) (test 0 /100 WBC 0-0 enfe=449) OXYGEN SATURATION, [id number] 10:53:00 Test Item Value Reference Range Comments O2 SATURATION (MEASURED) (BEAKER) (test pnfb=7032) 50.1 % OXYGEN SATURATION, [id number] 08:54:00 Test Item Value Reference Range Comments O2 SATURATION (MEASURED) (BEAKER) (test raxp=4648) 45.3 % BLOOD GAS, [id number] 08:54:00 Test Item Value Reference Range Comments PH ARTERIAL (BEAKER) (test nsuz=516) 7.49 7.35-7.45 PCO2 ARTERIAL (BEAKER) (test hpwi=828) 39 mmHg 35-45 PO2 ARTERIAL (BEAKER) (test ddgl=720) 64 mmHg 80-90 O2 SATURATION ARTERIAL (BEAKER) (test lvgq=038) 94.6 % 96.0-97.0 HCO3 ARTERIAL (BEAKER) (test rqgv=709) 29 mmol/L 21-29 BASE EXCESS ARTERIAL (BEAKER) (test anfx=574) 5.1 mmol/L -2.0-3.0 PATIENT TEMPERATURE (BEAKER) (test kxwq=6816) 36.1 C FIO2 (BEAKER) (test rejh=2338) 32.0 % RAD, CHEST, 1 VIEW, NON [id number] 06:40:00Reason for exam:->ETTShould this be performed at the bedside?->YesFINAL REPORT RAD , CHEST, 1 VIEW, NON DEPT INDICATION: ETT COMPARISON: Prior day's exam FINDINGS : Portable frontal view of the chest. IMPRESSION: Support Lines: Stable. Lungs and pleura: Unchanged airspace and pleural opacities. No pneumothorax.Heart and mediastinum: Stable contours. Stable surgical changes.Additional findings: None. Signed: Maryana Spann Verified Date/Time: 07/02/2018 06:40:32 Reading Location: [address] Transitional Reading Room CBC W/PLT COUNT & AUTO [id number] 05:31 :00 Test Item Value Reference Range Comments WHITE BLOOD CELL COUNT (BEAKER) (test mzjg=646) 7.9 K/ L 3.5-10.5 RED BLOOD CELL COUNT (BEAKER) (test fhlo=742) 2.83 M/ L 3.93-5.22 HEMOGLOBIN (BEAKER) (test yjpb=338) 8.6 GM/DL 11.2-15.7 HEMATOCRIT (BEAKER) (test nhnz=487) 28.4 % 34.1-44.9 MEAN CORPUSCULAR VOLUME (BEAKER) (test uxmg=276) 100.4 fL 79.4-94.8 MEAN CORPUSCULAR HEMOGLOBIN (BEAKER) (test 30.4 pg 25.6-32.2 pcph=691) MEAN CORPUSCULAR HEMOGLOBIN CONC (BEAKER) (test 30.3 GM/DL 32.2-35.5 vbkq=059) RED CELL DISTRIBUTION WIDTH (BEAKER) (test 17.9 % 11.7-14.4 ldmh=858) PLATELET COUNT (BEAKER) (test yfgn=396) 222 K/CU MM 150-450 MEAN PLATELET VOLUME (BEAKER) (test cedq=136) 9.9 fL 9.4-12.3 NUCLEATED RED BLOOD CELLS (BEAKER) (test 0 /100 WBC 0-0 ftws=314) NEUTROPHILS RELATIVE PERCENT (BEAKER) (test 85 % pwnd=965) LYMPHOCYTES RELATIVE PERCENT (BEAKER) (test 6 % zdic=892) MONOCYTES RELATIVE PERCENT (BEAKER) (test 8 % nukv=358) EOSINOPHILS RELATIVE PERCENT (BEAKER) (test 1 % fngr=025) BASOPHILS RELATIVE PERCENT (BEAKER) (test 0 % atot=609) NEUTROPHILS ABSOLUTE COUNT (BEAKER) (test 6.67 K/ L 1.56-6.13 pwej=480) LYMPHOCYTES ABSOLUTE COUNT (BEAKER) (test 0.46 K/ L 1.18-3.74 yjjz=191) MONOCYTES ABSOLUTE COUNT (BEAKER) (test 0.64 K/ L 0.24-0.36 ojmx=535) EOSINOPHILS ABSOLUTE COUNT (BEAKER) (test 0.06 K/ L 0.04-0.36 jzrt=168) BASOPHILS ABSOLUTE COUNT (BEAKER) (test 0.02 K/ L 0.01-0.08 uuke=686) IMMATURE GRANULOCYTES-RELATIVE PERCENT (BEAKER) 1 % 0-1 (test mfeh=9190) BASIC METABOLIC [id number] 04:54:00 Test Item Value Reference Range Comments SODIUM (BEAKER) (test 140 meq/L 136-145 pdhp=451) POTASSIUM (BEAKER) (test 3.7 meq/L 3.5-5.1 heuc=519) CHLORIDE (BEAKER) (test 104 meq/L 98-107 wfmh=261) CO2 (BEAKER) (test 28 meq/L 22-29 bywi=515) BLOOD UREA NITROGEN 29 mg/dL 7-21 (BEAKER) (test obaa=609) CREATININE (BEAKER) (test 1.49 mg/dL 0.57-1.25 pymd=876) GLUCOSE RANDOM (BEAKER) 107 mg/dL 70-105 (test utmz=691) CALCIUM (BEAKER) (test 8.9 mg/dL 8.4-10.2 dejj=053) EGFR (BEAKER) (test 42 mL/min/1.73 sq m ESTIMATED GFR IS NOT pupi=7591) ACCURATE CREATININE CLEARANCE IN PREDICTING GLOMERULAR FILTRATION RATE. ESTIMATED GFR IS NOT APPLICABLE FOR DIALYSIS PATIENTS. BASIC METABOLIC [id number] 18:41:00 Test Item Value Reference Range Comments SODIUM (BEAKER) (test 140 meq/L 136-145 umyz=124) POTASSIUM (BEAKER) (test 4.1 meq/L 3.5-5.1 neuu=397) CHLORIDE (BEAKER) (test 104 meq/L 98-107 rblu=042) CO2 (BEAKER) (test 25 meq/L 22-29 rrfm=515) BLOOD UREA NITROGEN 31 mg/dL 7-21 (BEAKER) (test trei=431) CREATININE (BEAKER) (test 1.55 mg/dL 0.57-1.25 rdaq=586) GLUCOSE RANDOM (BEAKER) 127 mg/dL 70-105 (test jfvy=383) CALCIUM (BEAKER) (test 9.0 mg/dL 8.4-10.2 jwgm=928) EGFR (BEAKER) (test 40 mL/min/1.73 sq m ESTIMATED GFR IS NOT fcmq=5517) ACCURATE CREATININE CLEARANCE IN PREDICTING GLOMERULAR FILTRATION RATE. ESTIMATED GFR IS NOT APPLICABLE FOR DIALYSIS PATIENTS. BLOOD GAS, [id number] 18:12:00 Test Item Value Reference Range Comments PH ARTERIAL (BEAKER) (test rkny=036) 7.50 7.35-7.45 PCO2 ARTERIAL (BEAKER) (test xwfm=842) 39 mmHg 35-45 PO2 ARTERIAL (BEAKER) (test jwnm=700) 59 mmHg 80-90 O2 SATURATION ARTERIAL (BEAKER) (test ysoi=874) 92.7 % 96.0-97.0 HCO3 ARTERIAL (BEAKER) (test dlxp=546) 30 mmol/L 21-29 BASE EXCESS ARTERIAL (BEAKER) (test kcdg=581) 6.0 mmol/L -2.0-3.0 PATIENT TEMPERATURE (BEAKER) (test gctk=4560) 36.9 C FIO2 (BEAKER) (test nvet=5626) 32.0 % RAD, CHEST, 1 VIEW, NON [id number] 07:32:00Reason for exam:->ETTShould this be performed at the bedside?->YesFINAL REPORT Chest one view. Clinical history: ETT Comparison: 06/30/2018 Discussion: A frontal chest is provided. Cardiomediastinal contours are unchanged. ET has been removed. Left IJ line is unchanged. There is unchanged mild vascular congestion and interstitial edema. Probable small left effusion. No pneumothorax. Signed: Morgan Chengeport Verified Date/Time: 07/01/2018 07:32: 43 Reading Location: [facility] C013 Neuro Reading Room BASIC METABOLIC [id number] 06:20:00 Test Item Value Reference Range Comments SODIUM (BEAKER) (test 142 meq/L 136-145 vwev=425) POTASSIUM (BEAKER) (test 4.3 meq/L 3.5-5.1 efgz=307) CHLORIDE (BEAKER) (test 106 meq/L 98-107 bpse=253) CO2 (BEAKER) (test 27 meq/L 22-29 yzxo=268) BLOOD UREA NITROGEN 34 mg/dL 7-21 (BEAKER) (test xaei=618) CREATININE (BEAKER) (test 1.67 mg/dL 0.57-1.25 qtjt=077) GLUCOSE RANDOM (BEAKER) 130 mg/dL 70-105 (test qeue=640) CALCIUM (BEAKER) (test 9.1 mg/dL 8.4-10.2 lkiy=502) EGFR (BEAKER) (test 37 mL/min/1.73 sq m ESTIMATED GFR IS NOT dcub=1527) ACCURATE CREATININE CLEARANCE IN PREDICTING GLOMERULAR FILTRATION RATE. ESTIMATED GFR IS NOT APPLICABLE FOR DIALYSIS PATIENTS. CBC W/PLT COUNT & AUTO [id number] 05:56:00 Test Item Value Reference Range Comments WHITE BLOOD CELL COUNT (BEAKER) (test oyjc=232) 6.9 K/ L 3.5-10.5 RED BLOOD CELL COUNT (BEAKER) (test fshg=052) 2.88 M/ L 3.93-5.22 HEMOGLOBIN (BEAKER) (test vtrt=374) 8.9 GM/DL 11.2-15.7 HEMATOCRIT (BEAKER) (test ehnc=635) 29.5 % 34.1-44.9 MEAN CORPUSCULAR VOLUME (BEAKER) (test cjjh=096) 102.4 fL 79.4-94.8 MEAN CORPUSCULAR HEMOGLOBIN (BEAKER) (test 30.9 pg 25.6-32.2 ebwu=480) MEAN CORPUSCULAR HEMOGLOBIN CONC (BEAKER) (test 30.2 GM/DL 32.2-35.5 glvc=697) RED CELL DISTRIBUTION WIDTH (BEAKER) (test 17.8 % 11.7-14.4 xstq=498) PLATELET COUNT (BEAKER) (test vkls=009) 211 K/CU MM 150-450 MEAN PLATELET VOLUME (BEAKER) (test aebj=332) 9.6 fL 9.4-12.3 NUCLEATED RED BLOOD CELLS (BEAKER) (test 0 /100 WBC 0-0 neab=164) NEUTROPHILS RELATIVE PERCENT (BEAKER) (test 86 % vwne=361) LYMPHOCYTES RELATIVE PERCENT (BEAKER) (test 5 % eouf=610) MONOCYTES RELATIVE PERCENT (BEAKER) (test 8 % ffrd=639) EOSINOPHILS RELATIVE PERCENT (BEAKER) (test 0 % oywy=652) BASOPHILS RELATIVE PERCENT (BEAKER) (test 0 % bbxs=924) NEUTROPHILS ABSOLUTE COUNT (BEAKER) (test 5.94 K/ L 1.56-6.13 uwoo=684) LYMPHOCYTES ABSOLUTE COUNT (BEAKER) (test 0.37 K/ L 1.18-3.74 agtn=569) MONOCYTES ABSOLUTE COUNT (BEAKER) (test 0.53 K/ L 0.24-0.36 jzmb=609) EOSINOPHILS ABSOLUTE COUNT (BEAKER) (test 0.02 K/ L 0.04-0.36 beqw=581) BASOPHILS ABSOLUTE COUNT (BEAKER) (test 0.01 K/ L 0.01-0.08 alww=094) IMMATURE GRANULOCYTES-RELATIVE PERCENT (BEAKER) 0 % 0-1 (test pmbi=3616) [id number] 15:31:00 Test Item Value Reference Range Comments MAGNESIUM (BEAKER) (test tyad=537) 2.2 mg/dL 1.6-2.6 BASIC METABOLIC [id number] 15:31:00 Test Item Value Reference Range Comments SODIUM (BEAKER) (test 137 meq/L 136-145 cgue=801) POTASSIUM (BEAKER) (test 4.5 meq/L 3.5-5.1 scgf=428) CHLORIDE (BEAKER) (test 102 meq/L 98-107 mvjy=391) CO2 (BEAKER) (test 24 meq/L 22-29 kdgz=843) BLOOD UREA NITROGEN 36 mg/dL 7-21 (BEAKER) (test exzd=865) CREATININE (BEAKER) (test 1.78 mg/dL 0.57-1.25 gvzr=516) GLUCOSE RANDOM (BEAKER) 179 mg/dL 70-105 (test pmxw=893) CALCIUM (BEAKER) (test 8.8 mg/dL 8.4-10.2 xpdu=276) EGFR (BEAKER) (test 34 mL/min/1.73 sq m ESTIMATED GFR IS NOT fqqv=4630) ACCURATE CREATININE CLEARANCE IN PREDICTING GLOMERULAR FILTRATION RATE. ESTIMATED GFR IS NOT APPLICABLE FOR DIALYSIS PATIENTS. CBC W/PLT COUNT & AUTO [id number] 15:17:00 Test Item Value Reference Range Comments WHITE BLOOD CELL COUNT (BEAKER) (test jrkc=499) 7.3 K/ L 3.5-10.5 RED BLOOD CELL COUNT (BEAKER) (test cvta=546) 3.02 M/ L 3.93-5.22 HEMOGLOBIN (BEAKER) (test acbd=734) 9.5 GM/DL 11.2-15.7 HEMATOCRIT (BEAKER) (test oicy=984) 31.3 % 34.1-44.9 MEAN CORPUSCULAR VOLUME (BEAKER) (test bhcr=107) 103.6 fL 79.4-94.8 MEAN CORPUSCULAR HEMOGLOBIN (BEAKER) (test 31.5 pg 25.6-32.2 lfcu=829) MEAN CORPUSCULAR HEMOGLOBIN CONC (BEAKER) (test 30.4 GM/DL 32.2-35.5 caaj=014) RED CELL DISTRIBUTION WIDTH (BEAKER) (test 17.8 % 11.7-14.4 quit=378) PLATELET COUNT (BEAKER) (test gluy=652) 229 K/CU MM 150-450 MEAN PLATELET VOLUME (BEAKER) (test hclq=780) 9.7 fL 9.4-12.3 NUCLEATED RED BLOOD CELLS (BEAKER) (test 0 /100 WBC 0-0 ntsh=390) NEUTROPHILS RELATIVE PERCENT (BEAKER) (test 91 % lloc=549) LYMPHOCYTES RELATIVE PERCENT (BEAKER) (test 3 % ujvq=154) MONOCYTES RELATIVE PERCENT (BEAKER) (test 5 % azyf=280) EOSINOPHILS RELATIVE PERCENT (BEAKER) (test 0 % exop=589) BASOPHILS RELATIVE PERCENT (BEAKER) (test 0 % ckjr=973) NEUTROPHILS ABSOLUTE COUNT (BEAKER) (test 6.62 K/ L 1.56-6.13 lqxt=121) LYMPHOCYTES ABSOLUTE COUNT (BEAKER) (test 0.23 K/ L 1.18-3.74 omkc=415) MONOCYTES ABSOLUTE COUNT (BEAKER) (test 0.39 K/ L 0.24-0.36 hnaf=084) EOSINOPHILS ABSOLUTE COUNT (BEAKER) (test 0.00 K/ L 0.04-0.36 nxjp=369) BASOPHILS ABSOLUTE COUNT (BEAKER) (test 0.02 K/ L 0.01-0.08 pshm=594) IMMATURE GRANULOCYTES-RELATIVE PERCENT (BEAKER) 0 % 0-1 (test pdww=1342) RAD, CHEST, 1 VIEW, NON [id number] 08:50:00Reason for exam:->ETTShould this be performed at [...] MDReport Verified Date/Time: 06/30/2018 08:50:44 Reading Location: [facility] [id number] Ultrasound Reading Room [id number] 06:52:00 Test Item Value Reference Range Comments ACTIVATED CLOTTING TIME 147 sec TESTED AT [facility] [address] [facility] (BEAKER) (test tpgm=893) [place] [address] [id number] 06:52:00 Test Item Value Reference Range Comments ACTIVATED CLOTTING TIME 252 sec TESTED AT [facility] [address] (BEAKER) (test qmlm=638) [place] [address] [id number] 06:52:00 Test Item Value Reference Range Comments ACTIVATED CLOTTING TIME 257 sec TESTED AT [place] [address] [address] (BEAKER) (test xduz=652) [place] [address] [id number] 06:52:00 Test Item Value Reference Range Comments ACTIVATED CLOTTING TIME 246 sec TESTED AT [place] [address] [address] (BEAKER) (test kyzt=929) [place] [address] LACTIC ACID, [id number] 05:16:00 Test Item Value Reference Range Comments LACTATE BLOOD ARTERIAL (2) (BEAKER) (test 1.0 mmol/L 0.5-2.2 wqzz=2553) BLOOD GAS, [id number] 05:06:00 Test Item Value Reference Range Comments PH ARTERIAL (BEAKER) (test wawj=918) 7.38 7.35-7.45 PCO2 ARTERIAL (BEAKER) (test fuao=510) 40 mmHg 35-45 PO2 ARTERIAL (BEAKER) (test wxiu=745) 107 mmHg 80-90 O2 SATURATION ARTERIAL (BEAKER) (test vzbj=699) 97.9 % 96.0-97.0 HCO3 ARTERIAL (BEAKER) (test yape=308) 23 mmol/L 21-29 BASE EXCESS ARTERIAL (BEAKER) (test nwnk=557) -2.1 mmol/L -2.0-3.0 PATIENT TEMPERATURE (BEAKER) (test yovc=1956) 36.7 C FIO2 (BEAKER) (test xdod=1197) 60.0 % CBC W/PLT COUNT & AUTO [id number] 04:59:00 Test Item Value Reference Range Comments WHITE BLOOD CELL COUNT (BEAKER) (test ehuf=128) 8.9 K/ L 3.5-10.5 RED BLOOD CELL COUNT (BEAKER) (test xyve=826) 3.28 M/ L 3.93-5.22 HEMOGLOBIN (BEAKER) (test vreq=196) 10.0 GM/DL 11.2-15.7 HEMATOCRIT (BEAKER) (test shok=046) 34.4 % 34.1-44.9 MEAN CORPUSCULAR VOLUME (BEAKER) (test jbzw=264) 104.9 fL 79.4-94.8 MEAN CORPUSCULAR HEMOGLOBIN (BEAKER) (test 30.5 pg 25.6-32.2 esys=089) MEAN CORPUSCULAR HEMOGLOBIN CONC (BEAKER) (test 29.1 GM/DL 32.2-35.5 rlfn=915) RED CELL DISTRIBUTION WIDTH (BEAKER) (test 17.6 % 11.7-14.4 bgcu=590) PLATELET COUNT (BEAKER) (test muio=786) 276 K/CU MM 150-450 MEAN PLATELET VOLUME (BEAKER) (test znit=368) 9.7 fL 9.4-12.3 NUCLEATED RED BLOOD CELLS (BEAKER) (test 0 /100 WBC 0-0 mnuv=034) NEUTROPHILS RELATIVE PERCENT (BEAKER) (test 90 % rvxo=982) LYMPHOCYTES RELATIVE PERCENT (BEAKER) (test 3 % nyli=922) MONOCYTES RELATIVE PERCENT (BEAKER) (test 6 % anlo=852) EOSINOPHILS RELATIVE PERCENT (BEAKER) (test 0 % aokm=584) BASOPHILS RELATIVE PERCENT (BEAKER) (test 0 % inra=682) NEUTROPHILS ABSOLUTE COUNT (BEAKER) (test 8.00 K/ L 1.56-6.13 htjg=685) LYMPHOCYTES ABSOLUTE COUNT (BEAKER) (test 0.30 K/ L 1.18-3.74 kzer=037) MONOCYTES ABSOLUTE COUNT (BEAKER) (test 0.51 K/ L 0.24-0.36 rpsg=769) EOSINOPHILS ABSOLUTE COUNT (BEAKER) (test 0.01 K/ L 0.04-0.36 rhwn=424) BASOPHILS ABSOLUTE COUNT (BEAKER) (test 0.02 K/ L 0.01-0.08 vbuw=989) IMMATURE GRANULOCYTES-RELATIVE PERCENT (BEAKER) 1 % 0-1 (test lyub=2681) B-TYPE NATRIURETIC FACTOR (BNP)2018-06-30 04:19:00 Test Item Value Reference Range Comments B-TYPE NATRIURETIC PEPTIDE (BEAKER) (test 00071 pg/mL 0-100 cxde=722) HEPATIC FUNCTION [id number] 04:01:00 Test Item Value Reference Range Comments TOTAL PROTEIN (BEAKER) (test ouiz=369) 6.5 gm/dL 6.0-8.3 ALBUMIN (BEAKER) (test huav=5769) 3.4 g/dL 3.5-5.0 BILIRUBIN TOTAL (BEAKER) (test qwhj=239) 1.2 mg/dL 0.2-1.2 BILIRUBIN DIRECT (BEAKER) (test zrfd=723) 0.8 mg/dL 0.1-0.5 ALKALINE PHOSPHATASE (BEAKER) (test cmzw=292) 103 U/L 40-150 AST (SGOT) (BEAKER) (test wtei=216) 17 U/L 5-34 ALT (SGPT) (BEAKER) (test fooj=583) 15 U/L 6-55 RAD, CHEST, 1 VIEW, NON [id number] 02:31:00Reason for exam:->ETTShould this be performed at [...] MDReport Verified Date/Time: 06/30/2018 02:31:37 Reading Location: [address] Transitional Reading Room [id number] 02:27:00 Test Item Value Reference Range Comments PARTIAL THROMBOPLASTIN TIME (BEAKER) (test 39.5 seconds 22.5-36.0 zpuz=599) PROTHROMBIN TIME/[id number] 02:26:00 Test Item Value Reference Range Comments PROTIME (BEAKER) (test kjvd=598) 16.5 seconds 11.7-14.7 INR (BEAKER) (test gspe=474) 1.3 <=5.9 RECOMMENDED COUMADIN/WARFARIN INR THERAPY RANGESSTANDARD DOSE: 2.0 - 3.0 Includes: PROPHYLAXIS forvenous thrombosis, systemic embolization; TREATMENT for venous thrombosis and/or pulmonary embolus.HIGH RISK: Target INR is 2.5-3.5 for patients with mechanical heart valves.BASIC METABOLIC [id number] 02:09: 00 Test Item Value Reference Range Comments SODIUM (BEAKER) (test 137 meq/L 136-145 lfpy=429) POTASSIUM (BEAKER) (test 4.9 meq/L 3.5-5.1 ywpp=152) CHLORIDE (BEAKER) (test 103 meq/L 98-107 sjyo=953) CO2 (BEAKER) (test 23 meq/L 22-29 ycxe=794) BLOOD UREA NITROGEN 32 mg/dL 7-21 (BEAKER) (test dzge=883) CREATININE (BEAKER) (test 1.74 mg/dL 0.57-1.25 tdtr=326) GLUCOSE RANDOM (BEAKER) 143 mg/dL 70-105 (test gdcm=728) CALCIUM (BEAKER) (test 8.8 mg/dL 8.4-10.2 rgal=450) EGFR (BEAKER) (test 35 mL/min/1.73 sq m ESTIMATED GFR IS NOT zapu=1221) ACCURATE CREATININE CLEARANCE IN PREDICTING GLOMERULAR FILTRATION RATE. ESTIMATED GFR IS NOT APPLICABLE FOR DIALYSIS PATIENTS. LACTIC ACID, [id number] 02:06:00 Test Item Value Reference Range Comments LACTATE BLOOD ARTERIAL (2) (BEAKER) (test 0.8 mmol/L 0.5-2.2 zqro=7123) OXYGEN SATURATION, [id number] 01:59:00 Test Item Value Reference Range Comments O2 SATURATION (MEASURED) (BEAKER) (test reld=1919) 79.3 % BLOOD GAS, [id number] 01:58:00 Test Item Value Reference Range Comments PH ARTERIAL (BEAKER) (test qgrk=867) 7.34 7.35-7.45 PCO2 ARTERIAL (BEAKER) (test dcck=464) 50 mmHg 35-45 PO2 ARTERIAL (BEAKER) (test lfav=391) 78 mmHg 80-90 O2 SATURATION ARTERIAL (BEAKER) (test zkej=462) 95.4 % 96.0-97.0 HCO3 ARTERIAL (BEAKER) (test fxwj=022) 27 mmol/L 21-29 BASE EXCESS ARTERIAL (BEAKER) (test fiku=681) 0.3 mmol/L -2.0-3.0 PATIENT TEMPERATURE (BEAKER) (test ljob=3611) 35.8 C FIO2 (BEAKER) (test kube=1644) 60.0 % CBC W/PLT COUNT & AUTO [id number] 01:57:00 Test Item Value Reference Range Comments WHITE BLOOD CELL COUNT (BEAKER) (test ygja=384) 9.7 K/ L 3.5-10.5 RED BLOOD CELL COUNT (BEAKER) (test sqrd=668) 3.18 M/ L 3.93-5.22 HEMOGLOBIN (BEAKER) (test rqlv=579) 9.8 GM/DL 11.2-15.7 HEMATOCRIT (BEAKER) (test zryk=338) 33.3 % 34.1-44.9 MEAN CORPUSCULAR VOLUME (BEAKER) (test ntpl=005) 104.7 fL 79.4-94.8 MEAN CORPUSCULAR HEMOGLOBIN (BEAKER) (test 30.8 pg 25.6-32.2 hnxa=310) MEAN CORPUSCULAR HEMOGLOBIN CONC (BEAKER) (test 29.4 GM/DL 32.2-35.5 xpvi=316) RED CELL DISTRIBUTION WIDTH (BEAKER) (test 17.5 % 11.7-14.4 allh=243) PLATELET COUNT (BEAKER) (test amlt=224) 289 K/CU MM 150-450 MEAN PLATELET VOLUME (BEAKER) (test znyp=151) 9.7 fL 9.4-12.3 NUCLEATED RED BLOOD CELLS (BEAKER) (test 0 /100 WBC 0-0 djrh=276) NEUTROPHILS RELATIVE PERCENT (BEAKER) (test 88 % qxop=371) LYMPHOCYTES RELATIVE PERCENT (BEAKER) (test 5 % ncvr=105) MONOCYTES RELATIVE PERCENT (BEAKER) (test 4 % zldn=282) EOSINOPHILS RELATIVE PERCENT (BEAKER) (test 1 % xaxg=867) BASOPHILS RELATIVE PERCENT (BEAKER) (test 0 % pwho=328) NEUTROPHILS ABSOLUTE COUNT (BEAKER) (test 8.53 K/ L 1.56-6.13 stik=077) LYMPHOCYTES ABSOLUTE COUNT (BEAKER) (test 0.48 K/ L 1.18-3.74 dked=522) MONOCYTES ABSOLUTE COUNT (BEAKER) (test 0.41 K/ L 0.24-0.36 vkpb=782) EOSINOPHILS ABSOLUTE COUNT (BEAKER) (test 0.13 K/ L 0.04-0.36 ramv=415) BASOPHILS ABSOLUTE COUNT (BEAKER) (test 0.04 K/ L 0.01-0.08 secd=725) IMMATURE GRANULOCYTES-RELATIVE PERCENT (BEAKER) 1 % 0-1 (test kvqj=7077) FILTER IONIZED [id number] 23:29:00 Test Item Value Reference Range Comments FILTER IONIZED CALCIUM (BEAKER) (test povr=2319) 1.14 mmol/L Reference Range: No NormalsBLOOD GAS, [id number] 23:29:00 Test Item Value Reference Range Comments PH ARTERIAL (BEAKER) (test yaen=045) 7.38 7.35-7.45 PCO2 ARTERIAL (BEAKER) (test yzsm=628) 49 mmHg 35-45 PO2 ARTERIAL (BEAKER) (test ucdj=018) 202 mmHg 80-90 O2 SATURATION ARTERIAL (BEAKER) (test tdjm=388) 99.4 % 96.0-97.0 HCO3 ARTERIAL (BEAKER) (test kzcx=992) 29 mmol/L 21-29 BASE EXCESS ARTERIAL (BEAKER) (test uhpb=807) 2.6 mmol/L -2.0-3.0 PATIENT TEMPERATURE (BEAKER) (test tqzu=2174) 35.6 C FIO2 (BEAKER) (test lhyr=2534) 100.0 % HGB/HCT (H&H) - STAT [id number] 23:28:00 Test Item Value Reference Range Comments HEMOGLOBIN (BEAKER) (test rvtn=843) 10.7 g/dL 12.0-15.0 HEMATOCRIT (BEAKER) (test xyso=253) 31.0 % 36.0-45.0 GLUCOSE-STAT [id number] 23:25:00 Test Item Value Reference Range Comments GLUCOSE RANDOM (BEAKER) (test qolx=217) 97 mg/dL 70-110 SODIUM NA-STAT [id number] 23:25:00 Test Item Value Reference Range Comments SODIUM (BEAKER) (test jblj=837) 137 meq/L 135-148 POTASSIUM-STAT [id number] 23:25:00 Test Item Value Reference Range Comments POTASSIUM (BEAKER) (test yebp=796) 4.4 meq/L 3.6-5.5 B-TYPE NATRIURETIC FACTOR (BNP)2018-06-29 21:59:00 Test Item Value Reference Range Comments B-TYPE NATRIURETIC PEPTIDE (BEAKER) (test 75287 pg/mL 0-100 kvpk=718) BASIC METABOLIC [id number] 21:31:00 Test Item Value Reference Range Comments SODIUM (BEAKER) (test 140 meq/L 136-145 neua=322) POTASSIUM (BEAKER) (test 4.6 meq/L 3.5-5.1 yyjw=265) CHLORIDE (BEAKER) (test 104 meq/L 98-107 hxsw=663) CO2 (BEAKER) (test 25 meq/L 22-29 ddql=563) BLOOD UREA NITROGEN 33 mg/dL 7-21 (BEAKER) (test hjxp=205) CREATININE (BEAKER) (test 1.78 mg/dL 0.57-1.25 txly=075) GLUCOSE RANDOM (BEAKER) 79 mg/dL 70-105 (test mzdb=124) CALCIUM (BEAKER) (test 9.4 mg/dL 8.4-10.2 scbw=162) EGFR (BEAKER) (test 34 mL/min/1.73 sq m ESTIMATED GFR IS NOT awlp=8937) ACCURATE CREATININE CLEARANCE IN PREDICTING GLOMERULAR FILTRATION RATE. ESTIMATED GFR IS NOT APPLICABLE FOR DIALYSIS PATIENTS. [id number] 21:18:00 Test Item Value Reference Range Comments PARTIAL THROMBOPLASTIN TIME (BEAKER) (test 36.1 seconds 22.5-36.0 awnj=193) PROTHROMBIN [id number] 21:17:00 Test Item Value Reference Range Comments PROTIME (BEAKER) (test pwen=639) 15.1 seconds 11.7-14.7 INR (BEAKER) (test lqwk=321) 1.2 <=5.9 RECOMMENDED COUMADIN/WARFARIN INR THERAPY RANGESSTANDARD DOSE: 2.0 - 3.0 Includes: PROPHYLAXIS forvenous thrombosis, systemic embolization; TREATMENT for venous thrombosis and/or pulmonary embolus.HIGH RISK: Target INR is 2.5-3.5 for patients with mechanical heart valves.CBC W/PLT COUNT & AUTO [id number] 21:05:00 Test Item Value Reference Range Comments WHITE BLOOD CELL COUNT (BEAKER) (test ncyp=054) 5.3 K/ L 3.5-10.5 RED BLOOD CELL COUNT (BEAKER) (test njnb=561) 3.43 M/ L 3.93-5.22 HEMOGLOBIN (BEAKER) (test mykn=117) 10.6 GM/DL 11.2-15.7 HEMATOCRIT (BEAKER) (test ggan=501) 36.3 % 34.1-44.9 MEAN CORPUSCULAR VOLUME (BEAKER) (test nhan=325) 105.8 fL 79.4-94.8 MEAN CORPUSCULAR HEMOGLOBIN (BEAKER) (test 30.9 pg 25.6-32.2 orjd=182) MEAN CORPUSCULAR HEMOGLOBIN CONC (BEAKER) (test 29.2 GM/DL 32.2-35.5 lkkk=526) RED CELL DISTRIBUTION WIDTH (BEAKER) (test 17.9 % 11.7-14.4 tatj=767) PLATELET COUNT (BEAKER) (test ioch=445) 294 K/CU MM 150-450 MEAN PLATELET VOLUME (BEAKER) (test sqli=936) 9.4 fL 9.4-12.3 NUCLEATED RED BLOOD CELLS (BEAKER) (test 0 /100 WBC 0-0 ctdz=844) NEUTROPHILS RELATIVE PERCENT (BEAKER) (test 75 % lxwo=335) LYMPHOCYTES RELATIVE PERCENT (BEAKER) (test 12 % dpiq=747) MONOCYTES RELATIVE PERCENT (BEAKER) (test 8 % fxnv=123) EOSINOPHILS RELATIVE PERCENT (BEAKER) (test 4 % tkpe=841) BASOPHILS RELATIVE PERCENT (BEAKER) (test 1 % ffkr=184) NEUTROPHILS ABSOLUTE COUNT (BEAKER) (test 3.97 K/ L 1.56-6.13 evmn=108) LYMPHOCYTES ABSOLUTE COUNT (BEAKER) (test 0.64 K/ L 1.18-3.74 wqia=407) MONOCYTES ABSOLUTE COUNT (BEAKER) (test 0.42 K/ L 0.24-0.36 jzai=735) EOSINOPHILS ABSOLUTE COUNT (BEAKER) (test 0.19 K/ L 0.04-0.36 zpkt=284) BASOPHILS ABSOLUTE COUNT (BEAKER) (test 0.05 K/ L 0.01-0.08 tttj=581) IMMATURE GRANULOCYTES-RELATIVE PERCENT (BEAKER) 0 % 0-1 (test xnah=5423) B-TYPE NATRIURETIC FACTOR (BNP)2017-08-18 15:08:00 Test Item Value Reference Range Comments B-TYPE NATRIURETIC PEPTIDE (BEAKER) (test 867 pg/mL 0-100 rwhr=030) BASIC METABOLIC [id number] 15:05:00 Test Item Value Reference Range Comments SODIUM (BEAKER) (test 140 meq/L 136-145 ljdq=499) POTASSIUM (BEAKER) (test 4.6 meq/L 3.5-5.1 hjlo=392) CHLORIDE (BEAKER) (test 98 meq/L 98-107 amaa=450) CO2 (BEAKER) (test 32 meq/L 22-29 ybrr=038) BLOOD UREA NITROGEN 30 mg/dL 7-21 (BEAKER) (test uouc=820) CREATININE (BEAKER) (test 2.58 mg/dL 0.57-1.25 lwor=704) GLUCOSE RANDOM (BEAKER) 105 mg/dL 70-105 (test btet=163) CALCIUM (BEAKER) (test 10.3 mg/dL 8.4-10.2 vwsv=693) EGFR (BEAKER) (test 22 mL/min/1.73 sq m ESTIMATED GFR IS NOT eohy=3024) ACCURATE CREATININE CLEARANCE IN PREDICTING GLOMERULAR FILTRATION RATE. ESTIMATED GFR IS NOT APPLICABLE FOR DIALYSIS PATIENTS. [id number] 15:02:00 Test Item Value Reference Range Comments MAGNESIUM (BEAKER) (test hyrr=247) 2.0 mg/dL 1.6-2.6 POCT-GLUCOSE [id number] 12:40:00 Test Item Value Reference Range Comments POC-GLUCOSE METER (BEAKER) 225 mg/dL 70-110 TESTED AT [address] (test enql=8593) [place] [address] POCT-GLUCOSE [id number] 08:32:00 Test Item Value Reference Range Comments POC-GLUCOSE METER (BEAKER) 148 mg/dL 70-110 TESTED AT [address] (test npbn=2381) [place] [id number] BASIC METABOLIC [id number] 05:56:00 Test Item Value Reference Range Comments SODIUM (BEAKER) (test 138 meq/L 136-145 dryc=550) POTASSIUM (BEAKER) (test 4.0 meq/L 3.5-5.1 mbfc=262) CHLORIDE (BEAKER) (test 98 meq/L 98-107 txum=399) CO2 (BEAKER) (test 29 meq/L 22-29 xlsh=490) BLOOD UREA NITROGEN 14 mg/dL 7-21 (BEAKER) (test cjyh=861) CREATININE (BEAKER) (test 1.85 mg/dL 0.57-1.25 ylzi=723) GLUCOSE RANDOM (BEAKER) 116 mg/dL 70-105 (test hwfo=942) CALCIUM (BEAKER) (test 9.9 mg/dL 8.4-10.2 mfmj=574) EGFR (BEAKER) (test 33 mL/min/1.73 sq m ESTIMATED GFR IS NOT ccct=0888) ACCURATE CREATININE CLEARANCE IN PREDICTING GLOMERULAR FILTRATION RATE. ESTIMATED GFR IS NOT APPLICABLE FOR DIALYSIS PATIENTS. POCT-GLUCOSE [id number] 21:38:00 Test Item Value Reference Range Comments POC-GLUCOSE METER (BEAKER) 162 mg/dL 70-110 TESTED AT [address] (test lwab=2970) [place] [address] POCT-GLUCOSE [id number] 17:02:00 Test Item Value Reference Range Comments POC-GLUCOSE METER (BEAKER) 160 mg/dL 70-110 TESTED AT [address] (test xxns=9234) [place] [address] POCT-GLUCOSE [id number] 12:33:00 Test Item Value Reference Range Comments POC-GLUCOSE METER (BEAKER) 163 mg/dL 70-110 TESTED AT [address] (test srbq=3127) [place] [address] POCT-GLUCOSE [id number] 10:33:00 Test Item Value Reference Range Comments POC-GLUCOSE METER (BEAKER) 175 mg/dL 70-110 TESTED AT [address] (test qjwv=0501) [place] [address] [id number] 04:51:00 Test Item Value Reference Range Comments MAGNESIUM (BEAKER) (test 2.0 mg/dL 1.6-2.6 Specimen slightly hemolyzed byxl=019) BASIC METABOLIC [id number] 04:51:00 Test Item Value Reference Range Comments SODIUM (BEAKER) (test 139 meq/L 136-145 orzx=464) POTASSIUM (BEAKER) (test 3.8 meq/L 3.5-5.1 Specimen slightly lybq=587) hemolyzed CHLORIDE (BEAKER) (test 99 meq/L 98-107 dhyc=484) CO2 (BEAKER) (test 27 meq/L 22-29 yatb=810) BLOOD UREA NITROGEN 14 mg/dL 7-21 (BEAKER) (test mwit=160) CREATININE (BEAKER) (test 1.61 mg/dL 0.57-1.25 Specimen slightly pksm=781) hemolyzed GLUCOSE RANDOM (BEAKER) 139 mg/dL 70-105 (test wtrb=873) CALCIUM (BEAKER) (test 10.0 mg/dL 8.4-10.2 chme=329) EGFR (BEAKER) (test 38 mL/min/1.73 sq m ESTIMATED GFR IS NOT efkt=4595) ACCURATE CREATININE CLEARANCE IN PREDICTING GLOMERULAR FILTRATION RATE. ESTIMATED GFR IS NOT APPLICABLE FOR DIALYSIS PATIENTS. POCT-GLUCOSE [id number] 21:32:00 Test Item Value Reference Range Comments POC-GLUCOSE METER (BEAKER) 176 mg/dL 70-110 TESTED AT [address] (test lifn=6654) [place] [id number] POCT-GLUCOSE [id number] 17:22:00 Test Item Value Reference Range Comments POC-GLUCOSE METER (BEAKER) 232 mg/dL 70-110 TESTED AT [address] (test xmip=9685) [place] [id number] POCT-GLUCOSE [id number] 12:47:00 Test Item Value Reference Range Comments POC-GLUCOSE METER (BEAKER) 162 mg/dL 70-110 TESTED AT [address] (test oehq=0549) [place] [id number] POCT-GLUCOSE [id number] 08:15:00 Test Item Value Reference Range Comments POC-GLUCOSE METER (BEAKER) 149 mg/dL 70-110 TESTED AT [address] (test pnzk=4503) [place] [id number] 07:05:00 Test Item Value Reference Range Comments MAGNESIUM (BEAKER) (test bytc=315) 1.9 mg/dL 1.6-2.6 BASIC METABOLIC [id number] 07:05:00 Test Item Value Reference Range Comments SODIUM (BEAKER) (test 136 meq/L 136-145 sqou=236) POTASSIUM (BEAKER) (test 3.8 meq/L 3.5-5.1 xckx=378) CHLORIDE (BEAKER) (test 98 meq/L 98-107 bvky=305) CO2 (BEAKER) (test 30 meq/L 22-29 fvlh=749) BLOOD UREA NITROGEN 14 mg/dL 7-21 (BEAKER) (test qqlu=438) CREATININE (BEAKER) (test 1.56 mg/dL 0.57-1.25 gadu=003) GLUCOSE RANDOM (BEAKER) 129 mg/dL 70-105 (test jshr=957) CALCIUM (BEAKER) (test 9.8 mg/dL 8.4-10.2 roqz=798) EGFR (BEAKER) (test 40 mL/min/1.73 sq m ESTIMATED GFR IS NOT goya=3406) ACCURATE CREATININE CLEARANCE IN PREDICTING GLOMERULAR FILTRATION RATE. ESTIMATED GFR IS NOT APPLICABLE FOR DIALYSIS PATIENTS. POCT-GLUCOSE [id number] 20:56:00 Test Item Value Reference Range Comments POC-GLUCOSE METER (BEAKER) 112 mg/dL 70-110 TESTED AT [address] (test dwsw=6962) [facility] [address] POCT-GLUCOSE [id number] 17:48:00 Test Item Value Reference Range Comments POC-GLUCOSE METER (BEAKER) 213 mg/dL 70-110 TESTED AT [address] (test rapj=6707) [facility] [address] POCT-GLUCOSE [id number] 11:40:00 Test Item Value Reference Range Comments POC-GLUCOSE METER (BEAKER) 208 mg/dL 70-110 TESTED AT [address] (test qylt=8778) [place] [address] POCT-GLUCOSE [id number] 07:43:00 Test Item Value Reference Range Comments POC-GLUCOSE METER (BEAKER) 144 mg/dL 70-110 TESTED AT [address] (test naff=4675) [place] [address] [id number] 04:52:00 Test Item Value Reference Range Comments MAGNESIUM (BEAKER) (test 2.0 mg/dL 1.6-2.6 Specimen slightly hemolyzed wucd=839) BASIC METABOLIC [id number] 04:52:00 Test Item Value Reference Range Comments SODIUM (BEAKER) (test 133 meq/L 136-145 jmbg=259) POTASSIUM (BEAKER) (test 4.7 meq/L 3.5-5.1 Specimen slightly lzlj=631) hemolyzed CHLORIDE (BEAKER) (test 97 meq/L 98-107 kcag=162) CO2 (BEAKER) (test 25 meq/L 22-29 yctc=527) BLOOD UREA NITROGEN 17 mg/dL 7-21 (BEAKER) (test erqm=942) CREATININE (BEAKER) (test 1.63 mg/dL 0.57-1.25 Specimen slightly huvo=053) hemolyzed GLUCOSE RANDOM (BEAKER) 141 mg/dL 70-105 (test lxqo=507) CALCIUM (BEAKER) (test 9.8 mg/dL 8.4-10.2 vlwc=370) EGFR (BEAKER) (test 38 mL/min/1.73 sq m ESTIMATED GFR IS NOT eqwh=0163) ACCURATE CREATININE CLEARANCE IN PREDICTING GLOMERULAR FILTRATION RATE. ESTIMATED GFR IS NOT APPLICABLE FOR DIALYSIS PATIENTS. POCT-GLUCOSE [id number] 21:29:00 Test Item Value Reference Range Comments POC-GLUCOSE METER (BEAKER) 198 mg/dL 70-110 TESTED AT [address] (test qlip=7211) [place] [address] POCT-GLUCOSE [id number] 17:54:00 Test Item Value Reference Range Comments POC-GLUCOSE METER (BEAKER) 176 mg/dL 70-110 TESTED AT [address] (test cxfw=4286) [place] [address] POCT-GLUCOSE [id number] 07:05:00 Test Item Value Reference Range Comments POC-GLUCOSE METER (BEAKER) 137 mg/dL 70-110 TESTED AT [address] (test hvze=8533) [place] [address] [id number] 06:53:00 Test Item Value Reference Range Comments MAGNESIUM (BEAKER) (test jmbo=237) 2.0 mg/dL 1.6-2.6 BASIC METABOLIC [id number] 05:37:00 Test Item Value Reference Range Comments SODIUM (BEAKER) (test 136 meq/L 136-145 mkzf=354) POTASSIUM (BEAKER) (test 3.7 meq/L 3.5-5.1 bkkg=896) CHLORIDE (BEAKER) (test 97 meq/L 98-107 qlud=347) CO2 (BEAKER) (test 30 meq/L 22-29 tkdg=332) BLOOD UREA NITROGEN 17 mg/dL 7-21 (BEAKER) (test sixk=267) CREATININE (BEAKER) (test 1.60 mg/dL 0.57-1.25 yvin=022) GLUCOSE RANDOM (BEAKER) 116 mg/dL 70-105 (test vftl=298) CALCIUM (BEAKER) (test 9.4 mg/dL 8.4-10.2 tkmi=515) EGFR (BEAKER) (test 39 mL/min/1.73 sq m ESTIMATED GFR IS NOT ymhx=5327) ACCURATE CREATININE CLEARANCE IN PREDICTING GLOMERULAR FILTRATION RATE. ESTIMATED GFR IS NOT APPLICABLE FOR DIALYSIS PATIENTS. CBC W/PLT COUNT & AUTO [id number] 05:02:00 Test Item Value Reference Range Comments WHITE BLOOD CELL COUNT (BEAKER) (test enqr=560) 8.7 K/ L 3.5-10.5 RED BLOOD CELL COUNT (BEAKER) (test mcuj=892) 2.43 M/ L 3.93-5.22 HEMOGLOBIN (BEAKER) (test jzbe=886) 7.5 GM/DL 11.2-15.7 HEMATOCRIT (BEAKER) (test hnhc=211) 24.1 % 34.1-44.9 MEAN CORPUSCULAR VOLUME (BEAKER) (test zvnf=815) 99.2 fL 79.4-94.8 MEAN CORPUSCULAR HEMOGLOBIN (BEAKER) (test 30.9 pg 25.6-32.2 oriu=009) MEAN CORPUSCULAR HEMOGLOBIN CONC (BEAKER) (test 31.1 GM/DL 32.2-35.5 zptw=846) RED CELL DISTRIBUTION WIDTH (BEAKER) (test 15.8 % 11.7-14.4 lqco=885) PLATELET COUNT (BEAKER) (test wfer=284) 586 K/CU MM 150-450 MEAN PLATELET VOLUME (BEAKER) (test kpff=429) 9.5 fL 9.4-12.3 NUCLEATED RED BLOOD CELLS (BEAKER) (test 0 /100 WBC 0-0 xxtl=651) NEUTROPHILS RELATIVE PERCENT (BEAKER) (test 74 % ekng=946) LYMPHOCYTES RELATIVE PERCENT (BEAKER) (test 15 % mjdk=880) MONOCYTES RELATIVE PERCENT (BEAKER) (test 8 % etif=220) EOSINOPHILS RELATIVE PERCENT (BEAKER) (test 2 % hced=254) BASOPHILS RELATIVE PERCENT (BEAKER) (test 1 % bwfv=794) NEUTROPHILS ABSOLUTE COUNT (BEAKER) (test 6.41 K/ L 1.56-6.13 befp=434) LYMPHOCYTES ABSOLUTE COUNT (BEAKER) (test 1.32 K/ L 1.18-3.74 nvfv=994) MONOCYTES ABSOLUTE COUNT (BEAKER) (test 0.65 K/ L 0.24-0.36 wfie=322) EOSINOPHILS ABSOLUTE COUNT (BEAKER) (test 0.20 K/ L 0.04-0.36 pcne=805) BASOPHILS ABSOLUTE COUNT (BEAKER) (test 0.08 K/ L 0.01-0.08 rmuk=838) IMMATURE GRANULOCYTES-RELATIVE PERCENT (BEAKER) 0 % 0-1 (test maya=8777) POCT-GLUCOSE [id number] 21:28:00 Test Item Value Reference Range Comments POC-GLUCOSE METER (BEAKER) 216 mg/dL 70-110 TESTED AT [address] (test rhqr=1963) [place] [address] POCT-GLUCOSE [id number] 18:25:00 Test Item Value Reference Range Comments POC-GLUCOSE METER (BEAKER) 182 mg/dL 70-110 TESTED AT [address] (test dwgx=4112) [place] [address] POCT-GLUCOSE [id number] 09:37:00 Test Item Value Reference Range Comments POC-GLUCOSE METER (BEAKER) 155 mg/dL 70-110 TESTED AT [address] (test whxv=4224) [place] [id number] CALCIUM, [id number] 07:37:00 Test Item Value Reference Range Comments CALCIUM IONIZED (BEAKER) (test kdvg=490) 1.11 mmol/L 1.12-1.27 PH, BLOOD (BEAKER) (test xkol=4344) 7.39 [id number] 07:10:00 Test Item Value Reference Range Comments FERRITIN (BEAKER) (test ckqy=533) 445 ng/mL 5-275 IRON, TIBC, % SAT. (WITHOUT FERRITIN)2017-08-04 07:04:00 Test Item Value Reference Range Comments IRON (BEAKER) (test fqcd=139) 55 ug/dL 40-160 TOTAL IRON BINDING CAPACITY (BEAKER) (test 198 ug/dL 250-450 qxfp=557) IRON % SATURATION (2) (BEAKER) (test fvqo=6344) 28 % 20-55 [id number] 06:57:00 Test Item Value Reference Range Comments PHOSPHORUS (BEAKER) (test ufzu=325) 4.3 mg/dL 2.3-4.7 [id number] 06:57:00 Test Item Value Reference Range Comments MAGNESIUM (BEAKER) (test fegd=025) 2.1 mg/dL 1.6-2.6 BASIC METABOLIC [id number] 06:57:00 Test Item Value Reference Range Comments SODIUM (BEAKER) (test 138 meq/L 136-145 oefz=118) POTASSIUM (BEAKER) (test 3.8 meq/L 3.5-5.1 dtwt=976) CHLORIDE (BEAKER) (test 99 meq/L 98-107 jbwh=358) CO2 (BEAKER) (test 29 meq/L 22-29 ilna=326) BLOOD UREA NITROGEN 18 mg/dL 7-21 (BEAKER) (test cypz=119) CREATININE (BEAKER) (test 1.75 mg/dL 0.57-1.25 vktb=861) GLUCOSE RANDOM (BEAKER) 138 mg/dL 70-105 (test dobt=042) CALCIUM (BEAKER) (test 9.7 mg/dL 8.4-10.2 lyfg=463) EGFR (BEAKER) (test 35 mL/min/1.73 sq m ESTIMATED GFR IS NOT dblj=7992) ACCURATE CREATININE CLEARANCE IN PREDICTING GLOMERULAR FILTRATION RATE. ESTIMATED GFR IS NOT APPLICABLE FOR DIALYSIS PATIENTS. B-TYPE NATRIURETIC FACTOR (BNP)2017-08-04 06:54:00 Test Item Value Reference Range Comments B-TYPE NATRIURETIC PEPTIDE (BEAKER) (test 778 pg/mL 0-100 aemq=540) RETICULOCYTE [id number] 06:39:00 Test Item Value Reference Range Comments RETICULOCYTE COUNT PCT (BEAKER) (test tpeo=540) 8.3 % 0.5-1.7 CBC W/PLT COUNT & AUTO [id number] 06:39:00 Test Item Value Reference Range Comments WHITE BLOOD CELL COUNT (BEAKER) (test froc=041) 9.0 K/ L 3.5-10.5 RED BLOOD CELL COUNT (BEAKER) (test upbv=490) 2.55 M/ L 3.93-5.22 HEMOGLOBIN (BEAKER) (test wikq=112) 7.8 GM/DL 11.2-15.7 HEMATOCRIT (BEAKER) (test foad=632) 25.4 % 34.1-44.9 MEAN CORPUSCULAR VOLUME (BEAKER) (test kvbm=486) 99.6 fL 79.4-94.8 MEAN CORPUSCULAR HEMOGLOBIN (BEAKER) (test 30.6 pg 25.6-32.2 yqar=898) MEAN CORPUSCULAR HEMOGLOBIN CONC (BEAKER) (test 30.7 GM/DL 32.2-35.5 ujib=689) RED CELL DISTRIBUTION WIDTH (BEAKER) (test 15.9 % 11.7-14.4 movg=451) PLATELET COUNT (BEAKER) (test hzol=283) 591 K/CU MM 150-450 MEAN PLATELET VOLUME (BEAKER) (test ekju=517) 9.5 fL 9.4-12.3 NUCLEATED RED BLOOD CELLS (BEAKER) (test 0 /100 WBC 0-0 ycau=011) NEUTROPHILS RELATIVE PERCENT (BEAKER) (test 77 % vxxe=703) LYMPHOCYTES RELATIVE PERCENT (BEAKER) (test 13 % xsjo=952) MONOCYTES RELATIVE PERCENT (BEAKER) (test 7 % rxny=706) EOSINOPHILS RELATIVE PERCENT (BEAKER) (test 2 % lfhs=137) BASOPHILS RELATIVE PERCENT (BEAKER) (test 1 % fcdu=948) NEUTROPHILS ABSOLUTE COUNT (BEAKER) (test 6.97 K/ L 1.56-6.13 atux=524) LYMPHOCYTES ABSOLUTE COUNT (BEAKER) (test 1.13 K/ L 1.18-3.74 hyvl=438) MONOCYTES ABSOLUTE COUNT (BEAKER) (test 0.65 K/ L 0.24-0.36 rqwc=962) EOSINOPHILS ABSOLUTE COUNT (BEAKER) (test 0.18 K/ L 0.04-0.36 nrpu=450) BASOPHILS ABSOLUTE COUNT (BEAKER) (test 0.07 K/ L 0.01-0.08 upyq=925) IMMATURE GRANULOCYTES-RELATIVE PERCENT (BEAKER) 0 % 0-1 (test dfsn=7154) POCT-GLUCOSE [id number] 20:56:00 Test Item Value Reference Range Comments POC-GLUCOSE METER (BEAKER) 167 mg/dL 70-110 TESTED AT [address] (test xdtv=7281) [facility] [id number] POCT-GLUCOSE [id number] 16:36:00 Test Item Value Reference Range Comments POC-GLUCOSE METER (BEAKER) 200 mg/dL 70-110 TESTED AT [address] (test xyuo=9452) [facility] [address] POCT-GLUCOSE [id number] 12:59:00 Test Item Value Reference Range Comments POC-GLUCOSE METER (BEAKER) 202 mg/dL 70-110 TESTED AT [address] (test oesi=5516) [place] [id number] POCT-GLUCOSE [id number] 07:37:00 Test Item Value Reference Range Comments POC-GLUCOSE METER (BEAKER) 154 mg/dL 70-110 TESTED AT [address] (test knee=4274) [facility] [address] CBC W/PLT COUNT & AUTO [id number] 06:49:00 Test Item Value Reference Range Comments WHITE BLOOD CELL COUNT (BEAKER) (test ciya=826) 9.8 K/ L 3.5-10.5 RED BLOOD CELL COUNT (BEAKER) (test afoh=102) 2.62 M/ L 3.93-5.22 HEMOGLOBIN (BEAKER) (test ehbe=022) 8.1 GM/DL 11.2-15.7 HEMATOCRIT (BEAKER) (test pfwz=830) 25.9 % 34.1-44.9 MEAN CORPUSCULAR VOLUME (BEAKER) (test uizg=448) 98.9 fL 79.4-94.8 MEAN CORPUSCULAR HEMOGLOBIN (BEAKER) (test 30.9 pg 25.6-32.2 rvmz=801) MEAN CORPUSCULAR HEMOGLOBIN CONC (BEAKER) (test 31.3 GM/DL 32.2-35.5 wcgh=556) RED CELL DISTRIBUTION WIDTH (BEAKER) (test 15.8 % 11.7-14.4 yibq=354) PLATELET COUNT (BEAKER) (test nhjc=714) 667 K/CU MM 150-450 MEAN PLATELET VOLUME (BEAKER) (test chzy=372) 9.4 fL 9.4-12.3 NUCLEATED RED BLOOD CELLS (BEAKER) (test 0 /100 WBC 0-0 pzwf=094) NEUTROPHILS RELATIVE PERCENT (BEAKER) (test 77 % ejze=012) LYMPHOCYTES RELATIVE PERCENT (BEAKER) (test 13 % korq=767) MONOCYTES RELATIVE PERCENT (BEAKER) (test 7 % sjwu=238) EOSINOPHILS RELATIVE PERCENT (BEAKER) (test 2 % gmbo=776) BASOPHILS RELATIVE PERCENT (BEAKER) (test 1 % jxez=820) NEUTROPHILS ABSOLUTE COUNT (BEAKER) (test 7.57 K/ L 1.56-6.13 pdjp=189) LYMPHOCYTES ABSOLUTE COUNT (BEAKER) (test 1.23 K/ L 1.18-3.74 njyy=076) MONOCYTES ABSOLUTE COUNT (BEAKER) (test 0.69 K/ L 0.24-0.36 smtk=684) EOSINOPHILS ABSOLUTE COUNT (BEAKER) (test 0.16 K/ L 0.04-0.36 dgmz=584) BASOPHILS ABSOLUTE COUNT (BEAKER) (test 0.08 K/ L 0.01-0.08 elwt=964) IMMATURE GRANULOCYTES-RELATIVE PERCENT (BEAKER) 1 % 0-1 (test uzna=6242) CALCIUM, [id number] 06:38:00 Test Item Value Reference Range Comments CALCIUM IONIZED (BEAKER) (test wlqb=434) 1.07 mmol/L 1.12-1.27 PH, BLOOD (BEAKER) (test csyf=2403) 7.42 [id number] 06:08:00 Test Item Value Reference Range Comments PHOSPHORUS (BEAKER) (test fsyj=159) 4.3 mg/dL 2.3-4.7 [id number] 06:08:00 Test Item Value Reference Range Comments MAGNESIUM (BEAKER) (test cmaz=366) 2.4 mg/dL 1.6-2.6 BASIC METABOLIC [id number] 06:08:00 Test Item Value Reference Range Comments SODIUM (BEAKER) (test 138 meq/L 136-145 eoih=989) POTASSIUM (BEAKER) (test 4.0 meq/L 3.5-5.1 kdlp=548) CHLORIDE (BEAKER) (test 99 meq/L 98-107 fyur=908) CO2 (BEAKER) (test 29 meq/L 22-29 zlxj=004) BLOOD UREA NITROGEN 15 mg/dL 7-21 (BEAKER) (test clls=182) CREATININE (BEAKER) (test 1.64 mg/dL 0.57-1.25 fgor=916) GLUCOSE RANDOM (BEAKER) 135 mg/dL 70-105 (test khcn=067) CALCIUM (BEAKER) (test 9.5 mg/dL 8.4-10.2 xbjt=999) EGFR (BEAKER) (test 38 mL/min/1.73 sq m ESTIMATED GFR IS NOT llws=4741) ACCURATE CREATININE CLEARANCE IN PREDICTING GLOMERULAR FILTRATION RATE. ESTIMATED GFR IS NOT APPLICABLE FOR DIALYSIS PATIENTS. POCT-GLUCOSE [id number] 21:13:00 Test Item Value Reference Range Comments POC-GLUCOSE METER (BEAKER) 145 mg/dL 70-110 TESTED AT [address] (test ieha=1774) [place] [address] POCT-GLUCOSE [id number] 17:08:00 Test Item Value Reference Range Comments POC-GLUCOSE METER (BEAKER) 134 mg/dL 70-110 TESTED AT [address] (test yrbn=0548) [place] [address] POCT-GLUCOSE [id number] 11:44:00 Test Item Value Reference Range Comments POC-GLUCOSE METER (BEAKER) 159 mg/dL 70-110 TESTED AT [address] (test kfiu=0785) [place] [id number] POCT-GLUCOSE [id number] 08:07:00 Test Item Value Reference Range Comments POC-GLUCOSE METER (BEAKER) 152 mg/dL 70-110 TESTED AT [address] (test pvea=7331) [place] [id number] CALCIUM, [id number] 05:26:00 Test Item Value Reference Range Comments CALCIUM IONIZED (BEAKER) (test amjy=630) 1.10 mmol/L 1.12-1.27 PH, BLOOD (BEAKER) (test vyeg=4184) 7.42 [id number] 05:05:00 Test Item Value Reference Range Comments PHOSPHORUS (BEAKER) (test lbuc=524) 4.6 mg/dL 2.3-4.7 [id number] 05:05:00 Test Item Value Reference Range Comments MAGNESIUM (BEAKER) (test brxb=636) 1.6 mg/dL 1.6-2.6 COMPREHENSIVE METABOLIC [id number] 05:05:00 Test Item Value Reference Range Comments TOTAL PROTEIN (BEAKER) 6.9 gm/dL 6.0-8.3 (test qcyx=898) ALBUMIN (BEAKER) (test 3.2 g/dL 3.5-5.0 jcex=2054) ALKALINE PHOSPHATASE 55 U/L 40-150 (BEAKER) (test ptgl=948) BILIRUBIN TOTAL (BEAKER) 0.6 mg/dL 0.2-1.2 (test rzvh=669) SODIUM (BEAKER) (test 139 meq/L 136-145 nbml=989) POTASSIUM (BEAKER) (test 3.9 meq/L 3.5-5.1 spnx=346) CHLORIDE (BEAKER) (test 100 meq/L 98-107 dhyh=697) CO2 (BEAKER) (test 27 meq/L 22-29 klce=928) BLOOD UREA NITROGEN 15 mg/dL 7-21 (BEAKER) (test hzvm=043) CREATININE (BEAKER) (test 1.55 mg/dL 0.57-1.25 owbf=822) GLUCOSE RANDOM (BEAKER) 125 mg/dL 70-105 (test wksz=991) CALCIUM (BEAKER) (test 9.2 mg/dL 8.4-10.2 pqza=063) AST (SGOT) (BEAKER) (test 16 U/L 5-34 ztme=477) ALT (SGPT) (BEAKER) (test 11 U/L 6-55 bgqo=636) EGFR (BEAKER) (test 40 mL/min/1.73 sq m ESTIMATED GFR IS NOT xvhf=2737) ACCURATE CREATININE CLEARANCE IN PREDICTING GLOMERULAR FILTRATION RATE. ESTIMATED GFR IS NOT APPLICABLE FOR DIALYSIS PATIENTS. CBC W/PLT COUNT & AUTO [id number] 04:57:00 Test Item Value Reference Range Comments WHITE BLOOD CELL COUNT (BEAKER) (test qdym=859) 10.8 K/ L 3.5-10.5 RED BLOOD CELL COUNT (BEAKER) (test ggkb=528) 2.57 M/ L 3.93-5.22 HEMOGLOBIN (BEAKER) (test dgsx=335) 7.9 GM/DL 11.2-15.7 HEMATOCRIT (BEAKER) (test uyly=068) 25.2 % 34.1-44.9 MEAN CORPUSCULAR VOLUME (BEAKER) (test lloc=062) 98.1 fL 79.4-94.8 MEAN CORPUSCULAR HEMOGLOBIN (BEAKER) (test 30.7 pg 25.6-32.2 czqr=071) MEAN CORPUSCULAR HEMOGLOBIN CONC (BEAKER) (test 31.3 GM/DL 32.2-35.5 kxvq=616) RED CELL DISTRIBUTION WIDTH (BEAKER) (test 15.9 % 11.7-14.4 ipxq=907) PLATELET COUNT (BEAKER) (test rqmz=743) 623 K/CU MM 150-450 MEAN PLATELET VOLUME (BEAKER) (test lrox=678) 9.4 fL 9.4-12.3 NUCLEATED RED BLOOD CELLS (BEAKER) (test 0 /100 WBC 0-0 aqll=240) NEUTROPHILS RELATIVE PERCENT (BEAKER) (test 79 % kwne=524) LYMPHOCYTES RELATIVE PERCENT (BEAKER) (test 12 % dttf=545) MONOCYTES RELATIVE PERCENT (BEAKER) (test 7 % wfmj=331) EOSINOPHILS RELATIVE PERCENT (BEAKER) (test 2 % pdom=958) BASOPHILS RELATIVE PERCENT (BEAKER) (test 1 % mbxs=664) NEUTROPHILS ABSOLUTE COUNT (BEAKER) (test 8.49 K/ L 1.56-6.13 viqz=280) LYMPHOCYTES ABSOLUTE COUNT (BEAKER) (test 1.28 K/ L 1.18-3.74 pggz=479) MONOCYTES ABSOLUTE COUNT (BEAKER) (test 0.74 K/ L 0.24-0.36 tlty=033) EOSINOPHILS ABSOLUTE COUNT (BEAKER) (test 0.18 K/ L 0.04-0.36 nitj=600) BASOPHILS ABSOLUTE COUNT (BEAKER) (test 0.05 K/ L 0.01-0.08 hfiv=696) IMMATURE GRANULOCYTES-RELATIVE PERCENT (BEAKER) 1 % 0-1 (test hosg=8633) POCT-GLUCOSE [id number] 01:29:00 Test Item Value Reference Range Comments POC-GLUCOSE METER (BEAKER) 182 mg/dL 70-110 TESTED AT [address] (test lvcj=8186) [place] [id number] POCT-GLUCOSE [id number] 22:32:00 Test Item Value Reference Range Comments POC-GLUCOSE METER (BEAKER) 204 mg/dL 70-110 TESTED AT [address] (test vgyx=6107) [place] [address] POCT-GLUCOSE [id number] 18:53:00 Test Item Value Reference Range Comments POC-GLUCOSE METER (BEAKER) 154 mg/dL 70-110 TESTED AT [address] (test jung=4902) [place] [address] POCT-GLUCOSE [id number] 15:50:00 Test Item Value Reference Range Comments POC-GLUCOSE METER (BEAKER) 172 mg/dL 70-110 TESTED AT [address] (test qryj=8837) [place] [address] B-TYPE NATRIURETIC FACTOR (BNP)2017-08-01 15:41:00 Test Item Value Reference Range Comments B-TYPE NATRIURETIC PEPTIDE (BEAKER) (test 1253 pg/mL 0-100 zmub=794) RAD, CHEST, 1 VIEW, NON [id number] 15:00:00Reason for exam:->SOBShould this be performed at the bedside?->YesFINAL REPORT Chest one view compared to July 28, 2017 Discussion: There is cardiac prominence. Lungs are grossly clear. No effusion or pneumothorax. There is either hiatal hernia or aortic tortuosity. IMPRESSIONS: No significant change. Signed: Tony Hsu Verified Date/Time: 08/01/2017 15:00:05 Reading Location: [address] Consult Reading Room Electronicallysigned by: TONY HSU M.D. on 08/01/2017 03:00 PMPOCT-GLUCOSE [id number] 09:28:00 Test Item Value Reference Range Comments POC-GLUCOSE METER (BEAKER) 155 mg/dL 70-110 TESTED AT [address] (test iyni=2563) [place] [address] BASIC METABOLIC [id number] 08:00:00 Test Item Value Reference Range Comments SODIUM (BEAKER) (test 138 meq/L 136-145 uvdl=629) POTASSIUM (BEAKER) (test 3.8 meq/L 3.5-5.1 htfa=908) CHLORIDE (BEAKER) (test 100 meq/L 98-107 ctli=716) CO2 (BEAKER) (test 27 meq/L 22-29 azpn=901) BLOOD UREA NITROGEN 14 mg/dL 7-21 (BEAKER) (test cidl=428) CREATININE (BEAKER) (test 1.47 mg/dL 0.57-1.25 nflm=919) GLUCOSE RANDOM (BEAKER) 150 mg/dL 70-105 (test wkwb=303) CALCIUM (BEAKER) (test 9.0 mg/dL 8.4-10.2 ptih=289) EGFR (BEAKER) (test 43 mL/min/1.73 sq m ESTIMATED GFR IS NOT urdx=4314) ACCURATE CREATININE CLEARANCE IN PREDICTING GLOMERULAR FILTRATION RATE. ESTIMATED GFR IS NOT APPLICABLE FOR DIALYSIS PATIENTS. CBC W/PLT COUNT & AUTO [id number] 07:54:00 Test Item Value Reference Range Comments WHITE BLOOD CELL COUNT (BEAKER) (test dukk=433) 12.4 K/ L 3.5-10.5 RED BLOOD CELL COUNT (BEAKER) (test akaq=742) 2.57 M/ L 3.93-5.22 HEMOGLOBIN (BEAKER) (test btog=211) 7.7 GM/DL 11.2-15.7 HEMATOCRIT (BEAKER) (test tapn=276) 25.0 % 34.1-44.9 MEAN CORPUSCULAR VOLUME (BEAKER) (test uxfe=037) 97.3 fL 79.4-94.8 MEAN CORPUSCULAR HEMOGLOBIN (BEAKER) (test 30.0 pg 25.6-32.2 vzuh=196) MEAN CORPUSCULAR HEMOGLOBIN CONC (BEAKER) (test 30.8 GM/DL 32.2-35.5 gslg=267) RED CELL DISTRIBUTION WIDTH (BEAKER) (test 15.8 % 11.7-14.4 szpj=249) PLATELET COUNT (BEAKER) (test bccs=302) 582 K/CU MM 150-450 MEAN PLATELET VOLUME (BEAKER) (test okrb=633) 9.5 fL 9.4-12.3 NUCLEATED RED BLOOD CELLS (BEAKER) (test 0 /100 WBC 0-0 crut=349) NEUTROPHILS RELATIVE PERCENT (BEAKER) (test 82 % otid=674) LYMPHOCYTES RELATIVE PERCENT (BEAKER) (test 10 % ocrj=335) MONOCYTES RELATIVE PERCENT (BEAKER) (test 6 % znth=383) EOSINOPHILS RELATIVE PERCENT (BEAKER) (test 1 % cltn=082) BASOPHILS RELATIVE PERCENT (BEAKER) (test 1 % fkdf=266) NEUTROPHILS ABSOLUTE COUNT (BEAKER) (test 10.08 K/ L 1.56-6.13 zsct=466) LYMPHOCYTES ABSOLUTE COUNT (BEAKER) (test 1.19 K/ L 1.18-3.74 curu=114) MONOCYTES ABSOLUTE COUNT (BEAKER) (test 0.74 K/ L 0.24-0.36 lzzl=154) EOSINOPHILS ABSOLUTE COUNT (BEAKER) (test 0.16 K/ L 0.04-0.36 bjrw=897) BASOPHILS ABSOLUTE COUNT (BEAKER) (test 0.10 K/ L 0.01-0.08 crfh=356) IMMATURE GRANULOCYTES-RELATIVE PERCENT (BEAKER) 1 % 0-1 (test ecyr=4825) POCT-GLUCOSE [id number] 21:34:00 Test Item Value Reference Range Comments POC-GLUCOSE METER (BEAKER) 153 mg/dL 70-110 TESTED AT [address] (test qhjn=9656) [place] [id number] POCT-GLUCOSE [id number] 17:34:00 Test Item Value Reference Range Comments POC-GLUCOSE METER (BEAKER) 165 mg/dL 70-110 TESTED AT [address] (test apko=6169) [place] [address] POCT-GLUCOSE [id number] 14:33:00 Test Item Value Reference Range Comments POC-GLUCOSE METER (BEAKER) 208 mg/dL 70-110 TESTED AT [address] (test chui=1956) [place] [address] POCT-GLUCOSE [id number] 12:54:00 Test Item Value Reference Range Comments POC-GLUCOSE METER (BEAKER) 218 mg/dL 70-110 TESTED AT [address] (test wwbz=7385) [place] [address] POCT-GLUCOSE [id number] 10:34:00 Test Item Value Reference Range Comments POC-GLUCOSE METER (BEAKER) 204 mg/dL 70-110 TESTED AT [facility] [address] [facility] (test uxyk=5568) [facility] [address] POCT-GLUCOSE [id number] 08:41:00 Test Item Value Reference Range Comments POC-GLUCOSE METER (BEAKER) 201 mg/dL 70-110 TESTED AT [facility] [address] [facility] (test ohpz=8429) [facility] [address] [id number] 05:54:00 Test Item Value Reference Range Comments MAGNESIUM (BEAKER) (test cnyi=779) 1.8 mg/dL 1.6-2.6 BASIC METABOLIC [id number] 05:54:00 Test Item Value Reference Range Comments SODIUM (BEAKER) (test 138 meq/L 136-145 quab=303) POTASSIUM (BEAKER) (test 3.6 meq/L 3.5-5.1 xdfa=504) CHLORIDE (BEAKER) (test 100 meq/L 98-107 zhtl=835) CO2 (BEAKER) (test 25 meq/L 22-29 gaor=087) BLOOD UREA NITROGEN 14 mg/dL 7-21 (BEAKER) (test zxpm=533) CREATININE (BEAKER) (test 1.42 mg/dL 0.57-1.25 mcfb=230) GLUCOSE RANDOM (BEAKER) 145 mg/dL 70-105 (test afun=710) CALCIUM (BEAKER) (test 9.4 mg/dL 8.4-10.2 ftwh=978) EGFR (BEAKER) (test 44 mL/min/1.73 sq m ESTIMATED GFR IS NOT mcya=2702) ACCURATE CREATININE CLEARANCE IN PREDICTING GLOMERULAR FILTRATION RATE. ESTIMATED GFR IS NOT APPLICABLE FOR DIALYSIS PATIENTS. CBC (HEMOGRAM ONLY)2017-07-31 05:42:00 Test Item Value Reference Range Comments WHITE BLOOD CELL COUNT (BEAKER) (test xfzi=317) 13.3 K/ L 3.5-10.5 RED BLOOD CELL COUNT (BEAKER) (test gqfg=263) 2.65 M/ L 3.93-5.22 HEMOGLOBIN (BEAKER) (test uvsh=447) 7.9 GM/DL 11.2-15.7 HEMATOCRIT (BEAKER) (test zjbq=887) 25.9 % 34.1-44.9 MEAN CORPUSCULAR VOLUME (BEAKER) (test npkz=826) 97.7 fL 79.4-94.8 MEAN CORPUSCULAR HEMOGLOBIN (BEAKER) (test 29.8 pg 25.6-32.2 epda=953) MEAN CORPUSCULAR HEMOGLOBIN CONC (BEAKER) (test 30.5 GM/DL 32.2-35.5 jdgt=058) RED CELL DISTRIBUTION WIDTH (BEAKER) (test 15.3 % 11.7-14.4 dlxw=378) PLATELET COUNT (BEAKER) (test obco=279) 580 K/CU MM 150-450 MEAN PLATELET VOLUME (BEAKER) (test stcz=279) 9.7 fL 9.4-12.3 NUCLEATED RED BLOOD CELLS (BEAKER) (test 0 /100 WBC 0-0 dokj=575) POCT-GLUCOSE [id number] 21:21:00 Test Item Value Reference Range Comments POC-GLUCOSE METER (BEAKER) 206 mg/dL 70-110 TESTED AT [address] (test gyxa=8696) [place] [id number] POCT-GLUCOSE [id number] 17:50:00 Test Item Value Reference Range Comments POC-GLUCOSE METER (BEAKER) 160 mg/dL 70-110 TESTED AT [address] (test cidw=0749) [facility] [address] POCT-GLUCOSE [id number] 12:12:00 Test Item Value Reference Range Comments POC-GLUCOSE METER (BEAKER) 214 mg/dL 70-110 TESTED AT [address] (test agul=9799) [place] [address] POCT-GLUCOSE [id number] 07:59:00 Test Item Value Reference Range Comments POC-GLUCOSE METER (BEAKER) 146 mg/dL 70-110 TESTED AT [address] (test xrjz=6250) [facility] [address] CALCIUM, [id number] 07:23:00 Test Item Value Reference Range Comments CALCIUM IONIZED (BEAKER) (test rujw=846) 1.11 mmol/L 1.12-1.27 PH, BLOOD (BEAKER) (test zxov=2431) 7.42 [id number] 07:07:00 Test Item Value Reference Range Comments PHOSPHORUS (BEAKER) (test gsma=848) 3.5 mg/dL 2.3-4.7 [id number] 07:07:00 Test Item Value Reference Range Comments MAGNESIUM (BEAKER) (test xlhe=289) 1.8 mg/dL 1.6-2.6 COMPREHENSIVE METABOLIC [id number] 07:07:00 Test Item Value Reference Range Comments TOTAL PROTEIN (BEAKER) 6.7 gm/dL 6.0-8.3 (test elmc=366) ALBUMIN (BEAKER) (test 3.1 g/dL 3.5-5.0 kysg=8091) ALKALINE PHOSPHATASE 53 U/L 40-150 (BEAKER) (test pnzl=512) BILIRUBIN TOTAL (BEAKER) 0.6 mg/dL 0.2-1.2 (test svhy=665) SODIUM (BEAKER) (test 139 meq/L 136-145 ptcb=680) POTASSIUM (BEAKER) (test 4.0 meq/L 3.5-5.1 sdnb=117) CHLORIDE (BEAKER) (test 103 meq/L 98-107 kcbb=887) CO2 (BEAKER) (test 27 meq/L 22-29 vihr=269) BLOOD UREA NITROGEN 16 mg/dL 7-21 (BEAKER) (test kdxy=040) CREATININE (BEAKER) (test 1.34 mg/dL 0.57-1.25 yxrm=035) GLUCOSE RANDOM (BEAKER) 116 mg/dL 70-105 (test xbhw=168) CALCIUM (BEAKER) (test 9.2 mg/dL 8.4-10.2 mwek=423) AST (SGOT) (BEAKER) (test 15 U/L 5-34 abcn=429) ALT (SGPT) (BEAKER) (test 11 U/L 6-55 swhh=264) EGFR (BEAKER) (test 47 mL/min/1.73 sq m ESTIMATED GFR IS NOT vgob=1859) ACCURATE CREATININE CLEARANCE IN PREDICTING GLOMERULAR FILTRATION RATE. ESTIMATED GFR IS NOT APPLICABLE FOR DIALYSIS PATIENTS. CBC W/PLT COUNT & AUTO [id number] 06:52:00 Test Item Value Reference Range Comments WHITE BLOOD CELL COUNT (BEAKER) (test lqco=954) 12.8 K/ L 3.5-10.5 RED BLOOD CELL COUNT (BEAKER) (test qevp=323) 2.43 M/ L 3.93-5.22 HEMOGLOBIN (BEAKER) (test segr=565) 7.2 GM/DL 11.2-15.7 HEMATOCRIT (BEAKER) (test wfue=959) 23.8 % 34.1-44.9 MEAN CORPUSCULAR VOLUME (BEAKER) (test xufi=206) 97.9 fL 79.4-94.8 MEAN CORPUSCULAR HEMOGLOBIN (BEAKER) (test 29.6 pg 25.6-32.2 yyho=801) MEAN CORPUSCULAR HEMOGLOBIN CONC (BEAKER) (test 30.3 GM/DL 32.2-35.5 znfw=417) RED CELL DISTRIBUTION WIDTH (BEAKER) (test 15.0 % 11.7-14.4 rjic=232) PLATELET COUNT (BEAKER) (test wxyo=534) 456 K/CU MM 150-450 MEAN PLATELET VOLUME (BEAKER) (test lsjt=117) 10.3 fL 9.4-12.3 NUCLEATED RED BLOOD CELLS (BEAKER) (test 0 /100 WBC 0-0 yntu=980) NEUTROPHILS RELATIVE PERCENT (BEAKER) (test 82 % vjrs=872) LYMPHOCYTES RELATIVE PERCENT (BEAKER) (test 9 % ulcg=103) MONOCYTES RELATIVE PERCENT (BEAKER) (test 6 % manj=838) EOSINOPHILS RELATIVE PERCENT (BEAKER) (test 2 % hcoz=633) BASOPHILS RELATIVE PERCENT (BEAKER) (test 0 % fwfk=345) NEUTROPHILS ABSOLUTE COUNT (BEAKER) (test 10.52 K/ L 1.56-6.13 yixn=082) LYMPHOCYTES ABSOLUTE COUNT (BEAKER) (test 1.19 K/ L 1.18-3.74 dgar=062) MONOCYTES ABSOLUTE COUNT (BEAKER) (test 0.73 K/ L 0.24-0.36 ewom=362) EOSINOPHILS ABSOLUTE COUNT (BEAKER) (test 0.22 K/ L 0.04-0.36 hrhl=784) BASOPHILS ABSOLUTE COUNT (BEAKER) (test 0.04 K/ L 0.01-0.08 oavo=329) IMMATURE GRANULOCYTES-RELATIVE PERCENT (BEAKER) 1 % 0-1 (test yfax=6914) POCT-GLUCOSE [id number] 21:47:00 Test Item Value Reference Range Comments POC-GLUCOSE METER (BEAKER) 106 mg/dL 70-110 TESTED AT [place] [id number] [facility] (test mpbc=8120) [place] [id number] POCT-GLUCOSE [id number] 18:50:00 Test Item Value Reference Range Comments POC-GLUCOSE METER (BEAKER) 175 mg/dL 70-110 TESTED AT [address] (test bylx=2631) [place] [address] [id number] 15:18:00 Test Item Value Reference Range Comments POTASSIUM (BEAKER) (test hghu=903) 3.7 meq/L 3.5-5.1 [id number] 15:18:00 Test Item Value Reference Range Comments MAGNESIUM (BEAKER) (test qnfp=857) 2.2 mg/dL 1.6-2.6 POCT-GLUCOSE [id number] 11:48:00 Test Item Value Reference Range Comments POC-GLUCOSE METER (BEAKER) 131 mg/dL 70-110 TESTED AT [address] (test amed=9043) [place] [address] BLOOD GAS, [id number] 11:46:00 Test Item Value Reference Range Comments PH ARTERIAL (BEAKER) (test zlla=312) 7.43 7.35-7.45 PCO2 ARTERIAL (BEAKER) (test tbcr=048) 46 mmHg 35-45 PO2 ARTERIAL (BEAKER) (test snon=554) 83 mmHg 80-90 O2 SATURATION ARTERIAL (BEAKER) (test gdhi=540) 96.5 % 96.0-97.0 HCO3 ARTERIAL (BEAKER) (test rvic=588) 30 mmol/L 21-29 BASE EXCESS ARTERIAL (BEAKER) (test jhcw=049) 4.8 mmol/L -2.0-3.0 PATIENT TEMPERATURE (BEAKER) (test ecct=4180) 36.9 C FIO2 (BEAKER) (test iltb=9920) 36.0 % POCT-GLUCOSE [id number] 08:29:00 Test Item Value Reference Range Comments POC-GLUCOSE METER (BEAKER) 129 mg/dL 70-110 TESTED AT [address] (test nrxs=2801) [place] [address] CALCIUM, [id number] 04:18:00 Test Item Value Reference Range Comments CALCIUM IONIZED (BEAKER) (test ccsk=255) 1.11 mmol/L 1.12-1.27 PH, BLOOD (BEAKER) (test jaip=3014) 7.40 B-TYPE NATRIURETIC FACTOR (BNP)2017-07-29 04:06:00 Test Item Value Reference Range Comments B-TYPE NATRIURETIC PEPTIDE (BEAKER) (test 982 pg/mL 0-100 xsjj=936) [id number] 03:59:00 Test Item Value Reference Range Comments PHOSPHORUS (BEAKER) (test ppbn=355) 3.6 mg/dL 2.3-4.7 [id number] 03:59:00 Test Item Value Reference Range Comments MAGNESIUM (BEAKER) (test wcrc=229) 1.9 mg/dL 1.6-2.6 BASIC METABOLIC [id number] 03:59:00 Test Item Value Reference Range Comments SODIUM (BEAKER) (test 141 meq/L 136-145 ulvg=480) POTASSIUM (BEAKER) (test 3.1 meq/L 3.5-5.1 yzjb=041) CHLORIDE (BEAKER) (test 103 meq/L 98-107 fidq=287) CO2 (BEAKER) (test 26 meq/L 22-29 ctfw=095) BLOOD UREA NITROGEN 17 mg/dL 7-21 (BEAKER) (test ktfc=200) CREATININE (BEAKER) (test 1.43 mg/dL 0.57-1.25 iopv=200) GLUCOSE RANDOM (BEAKER) 110 mg/dL 70-105 (test gxxi=393) CALCIUM (BEAKER) (test 9.0 mg/dL 8.4-10.2 zchq=633) EGFR (BEAKER) (test 44 mL/min/1.73 sq m ESTIMATED GFR IS NOT vwdz=3986) ACCURATE CREATININE CLEARANCE IN PREDICTING GLOMERULAR FILTRATION RATE. ESTIMATED GFR IS NOT APPLICABLE FOR DIALYSIS PATIENTS. CBC (HEMOGRAM ONLY)2017-07-29 03:51:00 Test Item Value Reference Range Comments WHITE BLOOD CELL COUNT (BEAKER) (test tukw=110) 12.2 K/ L 3.5-10.5 RED BLOOD CELL COUNT (BEAKER) (test leja=315) 2.48 M/ L 3.93-5.22 HEMOGLOBIN (BEAKER) (test lnmq=154) 7.4 GM/DL 11.2-15.7 HEMATOCRIT (BEAKER) (test wejy=820) 24.2 % 34.1-44.9 MEAN CORPUSCULAR VOLUME (BEAKER) (test ktfw=598) 97.6 fL 79.4-94.8 MEAN CORPUSCULAR HEMOGLOBIN (BEAKER) (test 29.8 pg 25.6-32.2 ahmn=824) MEAN CORPUSCULAR HEMOGLOBIN CONC (BEAKER) (test 30.6 GM/DL 32.2-35.5 jkgb=173) RED CELL DISTRIBUTION WIDTH (BEAKER) (test 15.1 % 11.7-14.4 pasi=675) PLATELET COUNT (BEAKER) (test qnxj=837) 410 K/CU MM 150-450 MEAN PLATELET VOLUME (BEAKER) (test fcmh=742) 10.2 fL 9.4-12.3 NUCLEATED RED BLOOD CELLS (BEAKER) (test 0 /100 WBC 0-0 ynjy=368) POCT-GLUCOSE [id number] 23:55:00 Test Item Value Reference Range Comments POC-GLUCOSE METER (BEAKER) 164 mg/dL 70-110 TESTED AT [facility] [address] [facility] (test zozl=3366) [facility] [address] HERPES VIRUS ANTIBODY, [id number] 11:02:00 Test Item Value Reference Range Comments HERPES VIRUS IGM (BEAKER) (test obbv=7923) Negative HSV IgM 1=NEGATIVEHSV IgM 2=NEGATIVETOXOPLASMA GONDII ANTIBODY, [id number] 11 :02:00 Test Item Value Reference Range Comments TOXOPLASMA IGM ANTIBODY (BEAKER) (test jfpq=609) Negative RAD, CHEST, 1 VIEW, NON [id number] 10:48:00Reason for exam:->acute respiratory insufficiencyShould this be [...] Martinezort Verified Date/Time: 07/28/2017 10:48:24 Reading Location: [facility] Radiology Reading Room [id number] 05:13:00 Test Item Value Reference Range Comments PHOSPHORUS (BEAKER) (test zfwk=251) 3.3 mg/dL 2.3-4.7 [id number] 05:13:00 Test Item Value Reference Range Comments MAGNESIUM (BEAKER) (test cheb=699) 1.9 mg/dL 1.6-2.6 HEPATIC FUNCTION [id number] 05:13:00 Test Item Value Reference Range Comments TOTAL PROTEIN (BEAKER) (test erbm=007) 7.5 gm/dL 6.0-8.3 ALBUMIN (BEAKER) (test gvlh=3354) 3.6 g/dL 3.5-5.0 BILIRUBIN TOTAL (BEAKER) (test hqth=607) 0.9 mg/dL 0.2-1.2 BILIRUBIN DIRECT (BEAKER) (test hukb=412) 0.4 mg/dL 0.1-0.5 ALKALINE PHOSPHATASE (BEAKER) (test esey=407) 66 U/L 40-150 AST (SGOT) (BEAKER) (test odhg=441) 21 U/L 5-34 ALT (SGPT) (BEAKER) (test lrdb=084) 17 U/L 6-55 COMPREHENSIVE METABOLIC [id number] 05:13:00 Test Item Value Reference Range Comments TOTAL PROTEIN (BEAKER) 7.5 gm/dL 6.0-8.3 (test catl=853) ALBUMIN (BEAKER) (test 3.6 g/dL 3.5-5.0 tjht=1784) ALKALINE PHOSPHATASE 66 U/L 40-150 (BEAKER) (test wdnz=689) BILIRUBIN TOTAL (BEAKER) 0.9 mg/dL 0.2-1.2 (test ebyx=227) SODIUM (BEAKER) (test 143 meq/L 136-145 vwqr=845) POTASSIUM (BEAKER) (test 3.5 meq/L 3.5-5.1 dhyr=339) CHLORIDE (BEAKER) (test 105 meq/L 98-107 cjyp=181) CO2 (BEAKER) (test 25 meq/L 22-29 etvn=711) BLOOD UREA NITROGEN 18 mg/dL 7-21 (BEAKER) (test dnqd=428) CREATININE (BEAKER) (test 1.43 mg/dL 0.57-1.25 dowm=769) GLUCOSE RANDOM (BEAKER) 130 mg/dL 70-105 (test qgtw=814) CALCIUM (BEAKER) (test 9.6 mg/dL 8.4-10.2 wvfn=031) AST (SGOT) (BEAKER) (test 21 U/L 5-34 oqjn=808) ALT (SGPT) (BEAKER) (test 17 U/L 6-55 szrs=285) EGFR (BEAKER) (test 44 mL/min/1.73 sq m ESTIMATED GFR IS NOT wkpu=7445) ACCURATE CREATININE CLEARANCE IN PREDICTING GLOMERULAR FILTRATION RATE. ESTIMATED GFR IS NOT APPLICABLE FOR DIALYSIS PATIENTS. LACTATE DEHYDROGENASE (LDH)2017-07-28 05:13:00 Test Item Value Reference Range Comments LACTATE DEHYDROGENASE (BEAKER) (test vmuf=997) 639 U/L 125-220 CBC W/PLT COUNT & AUTO [id number] 04:57:00 Test Item Value Reference Range Comments WHITE BLOOD CELL COUNT (BEAKER) (test voeb=221) 13.6 K/ L 3.5-10.5 RED BLOOD CELL COUNT (BEAKER) (test gisf=740) 2.86 M/ L 3.93-5.22 HEMOGLOBIN (BEAKER) (test gqwl=625) 8.5 GM/DL 11.2-15.7 HEMATOCRIT (BEAKER) (test aima=517) 28.9 % 34.1-44.9 MEAN CORPUSCULAR VOLUME (BEAKER) (test sjgt=987) 101.0 fL 79.4-94.8 MEAN CORPUSCULAR HEMOGLOBIN (BEAKER) (test 29.7 pg 25.6-32.2 jvpc=659) MEAN CORPUSCULAR HEMOGLOBIN CONC (BEAKER) (test 29.4 GM/DL 32.2-35.5 ljpk=521) RED CELL DISTRIBUTION WIDTH (BEAKER) (test 15.2 % 11.7-14.4 vdvf=612) PLATELET COUNT (BEAKER) (test kort=267) 375 K/CU MM 150-450 MEAN PLATELET VOLUME (BEAKER) (test dgfy=292) 10.7 fL 9.4-12.3 NUCLEATED RED BLOOD CELLS (BEAKER) (test 0 /100 WBC 0-0 fvuj=979) NEUTROPHILS RELATIVE PERCENT (BEAKER) (test 82 % riem=280) LYMPHOCYTES RELATIVE PERCENT (BEAKER) (test 9 % osrr=376) MONOCYTES RELATIVE PERCENT (BEAKER) (test 6 % camt=687) EOSINOPHILS RELATIVE PERCENT (BEAKER) (test 2 % njrm=151) BASOPHILS RELATIVE PERCENT (BEAKER) (test 1 % bzbc=999) NEUTROPHILS ABSOLUTE COUNT (BEAKER) (test 11.11 K/ L 1.56-6.13 aewp=858) LYMPHOCYTES ABSOLUTE COUNT (BEAKER) (test 1.17 K/ L 1.18-3.74 oyxi=742) MONOCYTES ABSOLUTE COUNT (BEAKER) (test 0.83 K/ L 0.24-0.36 xmlg=790) EOSINOPHILS ABSOLUTE COUNT (BEAKER) (test 0.25 K/ L 0.04-0.36 xcnn=229) BASOPHILS ABSOLUTE COUNT (BEAKER) (test 0.07 K/ L 0.01-0.08 zsan=759) IMMATURE GRANULOCYTES-RELATIVE PERCENT (BEAKER) 1 % 0-1 (test smqq=9234) OCCULT BLOOD, [id number] 01:02:00 Test Item Value Reference Range Comments FECAL OCCULT BLOOD (BEAKER) (test pdgq=335) Negative Negative POCT-GLUCOSE [id number] 00:46:00 Test Item Value Reference Range Comments POC-GLUCOSE METER (BEAKER) 149 mg/dL 70-110 TESTED AT [facility] [address] [facility] (test scpq=6252) [facility] [address] C. DIFFICILE GDH [id number] 19:51:00 Test Item Value Reference Range Comments CDT TOXIN (test Negative Negative zmju=[id number]) CDT GDH ANTIGEN (test Negative Negative No indication of Clostridium dwim=[id number]) difficile infection and no colonization. Discontinue enteric isolation and therapy. Testing performed by [employer] Rapid Cassette Assay. For GDH, published sensitivity of the assay is 98.7% compared to cytotoxicity testing. For Toxin AB, published sensitivity is 87.8% and specificity 99.4% compared to cytotoxicity testing.Verification of kit performance was done by the [facility] Microbiology Lab prior to clinical use.POCT-GLUCOSE [id number] 18:11:00 Test Item Value Reference Range Comments POC-GLUCOSE METER (BEAKER) 201 mg/dL 70-110 TESTED AT [address] (test xmjr=6308) [facility] [address] BLOOD GAS, [id number] 17:03:00 Test Item Value Reference Range Comments PH ARTERIAL (BEAKER) (test jnny=473) 7.41 7.35-7.45 PCO2 ARTERIAL (BEAKER) (test opur=434) 45 mmHg 35-45 PO2 ARTERIAL (BEAKER) (test ejmk=088) 94 mmHg 80-90 O2 SATURATION ARTERIAL (BEAKER) (test tejt=039) 97.3 % 96.0-97.0 HCO3 ARTERIAL (BEAKER) (test mitb=451) 28 mmol/L 21-29 BASE EXCESS ARTERIAL (BEAKER) (test pzzr=127) 2.3 mmol/L -2.0-3.0 PATIENT TEMPERATURE (BEAKER) (test bcno=2442) 36.6 C FIO2 (BEAKER) (test qmox=2679) 40.0 % POCT-GLUCOSE [id number] 12:44:00 Test Item Value Reference Range Comments POC-GLUCOSE METER (BEAKER) 117 mg/dL 70-110 TESTED AT [address] (test ugny=7999) [place] [id number] B-TYPE NATRIURETIC FACTOR (BNP)2017-07-27 11:13:00 Test Item Value Reference Range Comments B-TYPE NATRIURETIC PEPTIDE (BEAKER) (test 1198 pg/mL 0-100 hoxx=757) LACTIC ACID, VENOUS, WHOLE [id number] 11:12:00 Test Item Value Reference Range Comments LACTATE BLOOD VENOUS (2) (BEAKER) (test 0.7 mmol/L 0.5-2.2 gjff=6389) Effective 08/06/2015: Units/Reference Range ChangeNew: 0.5-2.2 mmol/L Previous: 5 -20 mg/dLOXYGEN SATURATION, [id number] 10:28:00 Test Item Value Reference Range Comments O2 SATURATION (MEASURED) (BEAKER) (test empb=7066) 59.6 % RAD, CHEST, 1 VIEW, NON [id number] 08:23:00Reason for exam:->acute respiratory insufficiencyShould this be [...] Verified Date/Time: 07/27/2017 08:23 :08 [facility] [place] [facility] POCT-GLUCOSE [id number] 07:53:00 Test Item Value Reference Range Comments POC-GLUCOSE METER (BEAKER) 124 mg/dL 70-110 TESTED AT [facility] [address] [facility] (test nnzl=7760) [facility] [address] BASIC METABOLIC [id number] 06:33:00 Test Item Value Reference Range Comments SODIUM (BEAKER) (test 144 meq/L 136-145 awgk=972) POTASSIUM (BEAKER) (test 3.8 meq/L 3.5-5.1 kcjo=393) CHLORIDE (BEAKER) (test 109 meq/L 98-107 upfs=692) CO2 (BEAKER) (test 24 meq/L 22-29 sjbv=263) BLOOD UREA NITROGEN 20 mg/dL 7-21 (BEAKER) (test xlne=982) CREATININE (BEAKER) (test 1.40 mg/dL 0.57-1.25 xvjt=445) GLUCOSE RANDOM (BEAKER) 111 mg/dL 70-105 (test tntb=099) CALCIUM (BEAKER) (test 8.8 mg/dL 8.4-10.2 zspc=837) EGFR (BEAKER) (test 45 mL/min/1.73 sq m ESTIMATED GFR IS NOT bhvk=2808) ACCURATE CREATININE CLEARANCE IN PREDICTING GLOMERULAR FILTRATION RATE. ESTIMATED GFR IS NOT APPLICABLE FOR DIALYSIS PATIENTS. [id number] 06:24:00 Test Item Value Reference Range Comments PHOSPHORUS (BEAKER) (test kttd=758) 3.3 mg/dL 2.3-4.7 BASIC METABOLIC [id number] 06:24:00 Test Item Value Reference Range Comments SODIUM (BEAKER) (test 145 meq/L 136-145 qrhg=395) POTASSIUM (BEAKER) (test 3.8 meq/L 3.5-5.1 awlj=806) CHLORIDE (BEAKER) (test 110 meq/L 98-107 uiyw=896) CO2 (BEAKER) (test 24 meq/L 22-29 mnhn=509) BLOOD UREA NITROGEN 21 mg/dL 7-21 (BEAKER) (test fdfu=395) CREATININE (BEAKER) (test 1.39 mg/dL 0.57-1.25 wxnz=080) GLUCOSE RANDOM (BEAKER) 112 mg/dL 70-105 (test mxhe=208) CALCIUM (BEAKER) (test 8.9 mg/dL 8.4-10.2 jkhi=608) EGFR (BEAKER) (test 45 mL/min/1.73 sq m ESTIMATED GFR IS NOT ucjy=1685) ACCURATE CREATININE CLEARANCE IN PREDICTING GLOMERULAR FILTRATION RATE. ESTIMATED GFR IS NOT APPLICABLE FOR DIALYSIS PATIENTS. [id number] 03:27:00 Test Item Value Reference Range Comments PROCALCITONIN (BEAKER) (test xcug=5511) 0.28 ng/mL <0.05 SEPSIS RISK (ng/mL)Low: 0.05-0.50Intermediate: 0.51-2.00High: & gt;=2.01LACTATE DEHYDROGENASE (LDH)2017-07-27 03:07:00 Test Item Value Reference Range Comments LACTATE DEHYDROGENASE (BEAKER) (test ettp=162) 615 U/L 125-220 HEPATIC FUNCTION [id number] 03:07:00 Test Item Value Reference Range Comments TOTAL PROTEIN (BEAKER) (test vewr=092) 6.8 gm/dL 6.0-8.3 ALBUMIN (BEAKER) (test ujzi=5839) 3.2 g/dL 3.5-5.0 BILIRUBIN TOTAL (BEAKER) (test xkaq=668) 0.9 mg/dL 0.2-1.2 BILIRUBIN DIRECT (BEAKER) (test muza=534) 0.5 mg/dL 0.1-0.5 ALKALINE PHOSPHATASE (BEAKER) (test twcv=912) 58 U/L 40-150 AST (SGOT) (BEAKER) (test zcjh=975) 21 U/L 5-34 ALT (SGPT) (BEAKER) (test rsba=265) 15 U/L 6-55 CALCIUM, [id number] 02:57:00 Test Item Value Reference Range Comments CALCIUM IONIZED (BEAKER) (test gjyc=294) 1.14 mmol/L 1.12-1.27 PH, BLOOD (BEAKER) (test eeqx=1025) 7.42 CBC W/PLT COUNT & AUTO [id number] 02:56:00 Test Item Value Reference Range Comments WHITE BLOOD CELL COUNT (BEAKER) (test jvel=623) 12.4 K/ L 3.5-10.5 RED BLOOD CELL COUNT (BEAKER) (test cgki=956) 2.50 M/ L 3.93-5.22 HEMOGLOBIN (BEAKER) (test xfcn=607) 7.4 GM/DL 11.2-15.7 HEMATOCRIT (BEAKER) (test txye=935) 24.7 % 34.1-44.9 MEAN CORPUSCULAR VOLUME (BEAKER) (test gywo=718) 98.8 fL 79.4-94.8 MEAN CORPUSCULAR HEMOGLOBIN (BEAKER) (test 29.6 pg 25.6-32.2 nddl=881) MEAN CORPUSCULAR HEMOGLOBIN CONC (BEAKER) (test 30.0 GM/DL 32.2-35.5 ukeb=613) RED CELL DISTRIBUTION WIDTH (BEAKER) (test 15.1 % 11.7-14.4 mixy=787) PLATELET COUNT (BEAKER) (test xvao=957) 233 K/CU MM 150-450 MEAN PLATELET VOLUME (BEAKER) (test gxgy=425) 10.5 fL 9.4-12.3 NUCLEATED RED BLOOD CELLS (BEAKER) (test 0 /100 WBC 0-0 rywb=486) NEUTROPHILS RELATIVE PERCENT (BEAKER) (test 80 % ikck=726) LYMPHOCYTES RELATIVE PERCENT (BEAKER) (test 9 % puuf=310) MONOCYTES RELATIVE PERCENT (BEAKER) (test 7 % hmae=250) EOSINOPHILS RELATIVE PERCENT (BEAKER) (test 2 % eibm=481) BASOPHILS RELATIVE PERCENT (BEAKER) (test 0 % ijck=981) NEUTROPHILS ABSOLUTE COUNT (BEAKER) (test 9.94 K/ L 1.56-6.13 pjzx=382) LYMPHOCYTES ABSOLUTE COUNT (BEAKER) (test 1.15 K/ L 1.18-3.74 uhvd=685) MONOCYTES ABSOLUTE COUNT (BEAKER) (test 0.90 K/ L 0.24-0.36 wujd=895) EOSINOPHILS ABSOLUTE COUNT (BEAKER) (test 0.24 K/ L 0.04-0.36 lmhi=533) BASOPHILS ABSOLUTE COUNT (BEAKER) (test 0.05 K/ L 0.01-0.08 yoko=518) IMMATURE GRANULOCYTES-RELATIVE PERCENT (BEAKER) 1 % 0-1 (test nghv=8629) [id number] 01:29:00 Test Item Value Reference Range Comments PHOSPHORUS (BEAKER) (test ezxo=596) 3.5 mg/dL 2.3-4.7 BASIC METABOLIC [id number] 01:29:00 Test Item Value Reference Range Comments SODIUM (BEAKER) (test 145 meq/L 136-145 pqgw=174) POTASSIUM (BEAKER) (test 3.4 meq/L 3.5-5.1 zazn=159) CHLORIDE (BEAKER) (test 107 meq/L 98-107 ktuk=639) CO2 (BEAKER) (test 26 meq/L 22-29 jvzl=830) BLOOD UREA NITROGEN 21 mg/dL 7-21 (BEAKER) (test qkqs=320) CREATININE (BEAKER) (test 1.47 mg/dL 0.57-1.25 gkoz=070) GLUCOSE RANDOM (BEAKER) 138 mg/dL 70-105 (test lugd=243) CALCIUM (BEAKER) (test 9.1 mg/dL 8.4-10.2 dscf=568) EGFR (BEAKER) (test 43 mL/min/1.73 sq m ESTIMATED GFR IS NOT phiu=7168) ACCURATE CREATININE CLEARANCE IN PREDICTING GLOMERULAR FILTRATION RATE. ESTIMATED GFR IS NOT APPLICABLE FOR DIALYSIS PATIENTS. POCT-GLUCOSE [id number] 22:08:00 Test Item Value Reference Range Comments POC-GLUCOSE METER (BEAKER) 166 mg/dL 70-110 TESTED AT [facility] [address] [facility] (test sbjn=9778) [facility] [address] [id number] 21:22:00 Test Item Value Reference Range Comments MAGNESIUM (BEAKER) (test gbor=518) 2.2 mg/dL 1.6-2.6 [id number] 19:23:00 Test Item Value Reference Range Comments PHOSPHORUS (BEAKER) (test csyb=582) 2.9 mg/dL 2.3-4.7 BASIC METABOLIC [id number] 19:23:00 Test Item Value Reference Range Comments SODIUM (BEAKER) (test 145 meq/L 136-145 wqdf=431) POTASSIUM (BEAKER) (test 3.6 meq/L 3.5-5.1 wmua=934) CHLORIDE (BEAKER) (test 109 meq/L 98-107 nmon=275) CO2 (BEAKER) (test 24 meq/L 22-29 vbci=300) BLOOD UREA NITROGEN 22 mg/dL 7-21 (BEAKER) (test ztwi=153) CREATININE (BEAKER) (test 1.48 mg/dL 0.57-1.25 jsev=951) GLUCOSE RANDOM (BEAKER) 150 mg/dL 70-105 (test gtdx=037) CALCIUM (BEAKER) (test 9.0 mg/dL 8.4-10.2 nwrk=426) EGFR (BEAKER) (test 42 mL/min/1.73 sq m ESTIMATED GFR IS NOT jtjl=7478) ACCURATE CREATININE CLEARANCE IN PREDICTING GLOMERULAR FILTRATION RATE. ESTIMATED GFR IS NOT APPLICABLE FOR DIALYSIS PATIENTS. POCT-GLUCOSE [id number] 18:13:00 Test Item Value Reference Range Comments POC-GLUCOSE METER (BEAKER) 188 mg/dL 70-110 TESTED AT [facility] [address] [facility] (test rdoy=3627) [facility] [address] [id number] 13:12:00 Test Item Value Reference Range Comments PHOSPHORUS (BEAKER) (test poff=543) 2.7 mg/dL 2.3-4.7 BASIC METABOLIC [id number] 13:12:00 Test Item Value Reference Range Comments SODIUM (BEAKER) (test 144 meq/L 136-145 qiak=252) POTASSIUM (BEAKER) (test 3.5 meq/L 3.5-5.1 waju=524) CHLORIDE (BEAKER) (test 108 meq/L 98-107 gnhq=158) CO2 (BEAKER) (test 26 meq/L 22-29 ynys=737) BLOOD UREA NITROGEN 23 mg/dL 7-21 (BEAKER) (test ulti=990) CREATININE (BEAKER) (test 1.45 mg/dL 0.57-1.25 vaqi=204) GLUCOSE RANDOM (BEAKER) 183 mg/dL 70-105 (test wkjy=818) CALCIUM (BEAKER) (test 8.5 mg/dL 8.4-10.2 fesg=188) EGFR (BEAKER) (test 43 mL/min/1.73 sq m ESTIMATED GFR IS NOT sdcb=9255) ACCURATE CREATININE CLEARANCE IN PREDICTING GLOMERULAR FILTRATION RATE. ESTIMATED GFR IS NOT APPLICABLE FOR DIALYSIS PATIENTS. POCT-GLUCOSE [id number] 12:07:00 Test Item Value Reference Range Comments POC-GLUCOSE METER (BEAKER) 203 mg/dL 70-110 TESTED AT [address] (test ymug=4789) [facility] [address] [id number] 09:50:00 Test Item Value Reference Range Comments MAGNESIUM (BEAKER) (test mtvl=209) 2.6 mg/dL 1.6-2.6 RAD, CHEST, 1 VIEW, NON [id number] 08:06:00Reason for exam:->acute respiratory insufficiencyShould this be [...] MDReport Verified Date/Time: 07/26/2017 08:06:19 Reading Location: [facility] Radiology Reading Room POCT-GLUCOSE [id number] 07:58:00 Test Item Value Reference Range Comments POC-GLUCOSE METER (BEAKER) 176 mg/dL 70-110 TESTED AT [facility] [address] [facility] (test vcou=1628) [facility] [address] OXYGEN SATURATION, [id number] 05:23:00 Test Item Value Reference Range Comments O2 SATURATION (MEASURED) (BEAKER) (test jfxd=1234) 64.5 % calibrationBLOOD GAS, [id number] 04:43:00 Test Item Value Reference Range Comments PH ARTERIAL (BEAKER) (test qprm=001) 7.44 7.35-7.45 PCO2 ARTERIAL (BEAKER) (test zbrt=876) 44 mmHg 35-45 PO2 ARTERIAL (BEAKER) (test zsrm=179) 127 mmHg 80-90 O2 SATURATION ARTERIAL (BEAKER) (test kyje=216) 98.6 % 96.0-97.0 HCO3 ARTERIAL (BEAKER) (test hkpp=072) 29 mmol/L 21-29 BASE EXCESS ARTERIAL (BEAKER) (test jwfz=554) 4.6 mmol/L -2.0-3.0 PATIENT TEMPERATURE (BEAKER) (test atzl=2569) 37.3 C FIO2 (BEAKER) (test jjuv=9884) 100.0 % [id number] 04:31:00 Test Item Value Reference Range Comments PHOSPHORUS (BEAKER) (test sqnb=262) 3.4 mg/dL 2.3-4.7 [id number] 04:31:00 Test Item Value Reference Range Comments MAGNESIUM (BEAKER) (test vbdl=789) 2.2 mg/dL 1.6-2.6 BASIC METABOLIC [id number] 04:31:00 Test Item Value Reference Range Comments SODIUM (BEAKER) (test 146 meq/L 136-145 quxl=962) POTASSIUM (BEAKER) (test 3.7 meq/L 3.5-5.1 ackt=544) CHLORIDE (BEAKER) (test 108 meq/L 98-107 rgij=162) CO2 (BEAKER) (test 28 meq/L 22-29 kjwe=184) BLOOD UREA NITROGEN 23 mg/dL 7-21 (BEAKER) (test nyqc=895) CREATININE (BEAKER) (test 1.51 mg/dL 0.57-1.25 lnuu=864) GLUCOSE RANDOM (BEAKER) 151 mg/dL 70-105 (test zrcu=605) CALCIUM (BEAKER) (test 9.4 mg/dL 8.4-10.2 pafq=163) EGFR (BEAKER) (test 41 mL/min/1.73 sq m ESTIMATED GFR IS NOT eeta=0665) ACCURATE CREATININE CLEARANCE IN PREDICTING GLOMERULAR FILTRATION RATE. ESTIMATED GFR IS NOT APPLICABLE FOR DIALYSIS PATIENTS. HEPATIC FUNCTION [id number] 04:31:00 Test Item Value Reference Range Comments TOTAL PROTEIN (BEAKER) (test qyye=213) 6.6 gm/dL 6.0-8.3 ALBUMIN (BEAKER) (test spmn=6953) 3.2 g/dL 3.5-5.0 BILIRUBIN TOTAL (BEAKER) (test bdyj=586) 1.0 mg/dL 0.2-1.2 BILIRUBIN DIRECT (BEAKER) (test rmrd=582) 0.5 mg/dL 0.1-0.5 ALKALINE PHOSPHATASE (BEAKER) (test umjj=459) 60 U/L 40-150 AST (SGOT) (BEAKER) (test erfp=169) 25 U/L 5-34 ALT (SGPT) (BEAKER) (test badd=989) 18 U/L 6-55 COMPREHENSIVE METABOLIC [id number] 04:31:00 Test Item Value Reference Range Comments TOTAL PROTEIN (BEAKER) 6.6 gm/dL 6.0-8.3 (test resy=402) ALBUMIN (BEAKER) (test 3.2 g/dL 3.5-5.0 giax=7501) ALKALINE PHOSPHATASE 60 U/L 40-150 (BEAKER) (test dcps=703) BILIRUBIN TOTAL (BEAKER) 1.0 mg/dL 0.2-1.2 (test bdfa=081) SODIUM (BEAKER) (test 146 meq/L 136-145 wyvi=163) POTASSIUM (BEAKER) (test 3.7 meq/L 3.5-5.1 qljs=450) CHLORIDE (BEAKER) (test 108 meq/L 98-107 glvd=884) CO2 (BEAKER) (test 28 meq/L 22-29 pdtz=208) BLOOD UREA NITROGEN 23 mg/dL 7-21 (BEAKER) (test kxta=618) CREATININE (BEAKER) (test 1.51 mg/dL 0.57-1.25 nkjy=382) GLUCOSE RANDOM (BEAKER) 151 mg/dL 70-105 (test pcep=341) CALCIUM (BEAKER) (test 9.4 mg/dL 8.4-10.2 czlz=259) AST (SGOT) (BEAKER) (test 25 U/L 5-34 nbky=152) ALT (SGPT) (BEAKER) (test 18 U/L 6-55 dwzn=239) EGFR (BEAKER) (test 41 mL/min/1.73 sq m ESTIMATED GFR IS NOT lzlh=1055) ACCURATE CREATININE CLEARANCE IN PREDICTING GLOMERULAR FILTRATION RATE. ESTIMATED GFR IS NOT APPLICABLE FOR DIALYSIS PATIENTS. LACTATE DEHYDROGENASE (LDH)2017-07-26 04:31:00 Test Item Value Reference Range Comments LACTATE DEHYDROGENASE (BEAKER) (test gveh=732) 661 U/L 125-220 CALCIUM, [id number] 04:23:00 Test Item Value Reference Range Comments CALCIUM IONIZED (BEAKER) (test mgnc=944) 1.15 mmol/L 1.12-1.27 PH, BLOOD (BEAKER) (test ngos=0954) 7.47 CBC W/PLT COUNT & AUTO [id number] 04:20:00 Test Item Value Reference Range Comments WHITE BLOOD CELL COUNT (BEAKER) (test lvgl=781) 13.0 K/ L 3.5-10.5 RED BLOOD CELL COUNT (BEAKER) (test rswb=060) 2.56 M/ L 3.93-5.22 HEMOGLOBIN (BEAKER) (test aede=661) 7.6 GM/DL 11.2-15.7 HEMATOCRIT (BEAKER) (test osgx=001) 25.4 % 34.1-44.9 MEAN CORPUSCULAR VOLUME (BEAKER) (test qkyp=674) 99.2 fL 79.4-94.8 MEAN CORPUSCULAR HEMOGLOBIN (BEAKER) (test 29.7 pg 25.6-32.2 lbip=268) MEAN CORPUSCULAR HEMOGLOBIN CONC (BEAKER) (test 29.9 GM/DL 32.2-35.5 zqfe=497) RED CELL DISTRIBUTION WIDTH (BEAKER) (test 15.0 % 11.7-14.4 mkua=925) PLATELET COUNT (BEAKER) (test lgez=634) 161 K/CU MM 150-450 MEAN PLATELET VOLUME (BEAKER) (test oueq=513) 11.0 fL 9.4-12.3 NUCLEATED RED BLOOD CELLS (BEAKER) (test 0 /100 WBC 0-0 tmyn=011) NEUTROPHILS RELATIVE PERCENT (BEAKER) (test 79 % wsnw=913) LYMPHOCYTES RELATIVE PERCENT (BEAKER) (test 10 % grwj=509) MONOCYTES RELATIVE PERCENT (BEAKER) (test 7 % divx=286) EOSINOPHILS RELATIVE PERCENT (BEAKER) (test 2 % csmp=714) BASOPHILS RELATIVE PERCENT (BEAKER) (test 1 % iwri=890) NEUTROPHILS ABSOLUTE COUNT (BEAKER) (test 10.33 K/ L 1.56-6.13 rqsz=250) LYMPHOCYTES ABSOLUTE COUNT (BEAKER) (test 1.35 K/ L 1.18-3.74 uznz=612) MONOCYTES ABSOLUTE COUNT (BEAKER) (test 0.96 K/ L 0.24-0.36 xywx=073) EOSINOPHILS ABSOLUTE COUNT (BEAKER) (test 0.19 K/ L 0.04-0.36 jbsk=126) BASOPHILS ABSOLUTE COUNT (BEAKER) (test 0.07 K/ L 0.01-0.08 oueg=878) IMMATURE GRANULOCYTES-RELATIVE PERCENT (BEAKER) 1 % 0-1 (test ffgp=0788) [id number] 21:19:00 Test Item Value Reference Range Comments PHOSPHORUS (BEAKER) (test aaiz=351) 4.4 mg/dL 2.3-4.7 [id number] 21:19:00 Test Item Value Reference Range Comments MAGNESIUM (BEAKER) (test fnzl=323) 2.1 mg/dL 1.6-2.6 BASIC METABOLIC [id number] 21:19:00 Test Item Value Reference Range Comments SODIUM (BEAKER) (test 146 meq/L 136-145 licp=155) POTASSIUM (BEAKER) (test 3.9 meq/L 3.5-5.1 mpss=660) CHLORIDE (BEAKER) (test 108 meq/L 98-107 nedb=111) CO2 (BEAKER) (test 27 meq/L 22-29 fzgk=792) BLOOD UREA NITROGEN 24 mg/dL 7-21 (BEAKER) (test zsrk=352) CREATININE (BEAKER) (test 1.64 mg/dL 0.57-1.25 nzbe=009) GLUCOSE RANDOM (BEAKER) 120 mg/dL 70-105 (test eypk=142) CALCIUM (BEAKER) (test 9.5 mg/dL 8.4-10.2 dcrl=132) EGFR (BEAKER) (test 38 mL/min/1.73 sq m ESTIMATED GFR IS NOT pblc=6776) ACCURATE CREATININE CLEARANCE IN PREDICTING GLOMERULAR FILTRATION RATE. ESTIMATED GFR IS NOT APPLICABLE FOR DIALYSIS PATIENTS. POCT-GLUCOSE [id number] 18:36:00 Test Item Value Reference Range Comments POC-GLUCOSE METER (BEAKER) 129 mg/dL 70-110 TESTED AT [facility] [address] [facility] (test kiqn=5031) [facility] [address] POCT-GLUCOSE [id number] 16:19:00 Test Item Value Reference Range Comments POC-GLUCOSE METER (BEAKER) 132 mg/dL 70-110 TESTED AT [place] [id number] [facility] (test gedy=1270) [facility] [address] [id number] 13:57:00 Test Item Value Reference Range Comments PHOSPHORUS (BEAKER) (test phjm=758) 4.2 mg/dL 2.3-4.7 BASIC METABOLIC [id number] 13:57:00 Test Item Value Reference Range Comments SODIUM (BEAKER) (test 147 meq/L 136-145 vuov=116) POTASSIUM (BEAKER) (test 3.7 meq/L 3.5-5.1 hfhn=390) CHLORIDE (BEAKER) (test 110 meq/L 98-107 hfbf=064) CO2 (BEAKER) (test 25 meq/L 22-29 kayc=727) BLOOD UREA NITROGEN 23 mg/dL 7-21 (BEAKER) (test brqc=834) CREATININE (BEAKER) (test 1.58 mg/dL 0.57-1.25 qvpb=674) GLUCOSE RANDOM (BEAKER) 129 mg/dL 70-105 (test rocu=938) CALCIUM (BEAKER) (test 9.2 mg/dL 8.4-10.2 djaq=657) EGFR (BEAKER) (test 39 mL/min/1.73 sq m ESTIMATED GFR IS NOT kepn=2121) ACCURATE CREATININE CLEARANCE IN PREDICTING GLOMERULAR FILTRATION RATE. ESTIMATED GFR IS NOT APPLICABLE FOR DIALYSIS PATIENTS. BLOOD GAS, [id number] 13:48:00 Test Item Value Reference Range Comments PH ARTERIAL (BEAKER) (test sbvy=219) 7.42 7.35-7.45 PCO2 ARTERIAL (BEAKER) (test lxvd=009) 47 mmHg 35-45 PO2 ARTERIAL (BEAKER) (test dgzd=104) 202 mmHg 80-90 O2 SATURATION ARTERIAL (BEAKER) (test yymq=941) 99.4 % 96.0-97.0 HCO3 ARTERIAL (BEAKER) (test mbvo=520) 29 mmol/L 21-29 BASE EXCESS ARTERIAL (BEAKER) (test fpmc=777) 4.4 mmol/L -2.0-3.0 PATIENT TEMPERATURE (BEAKER) (test dqyb=4646) 37.6 C FIO2 (BEAKER) (test huju=5621) 100.0 % POCT-GLUCOSE [id number] 13:31:00 Test Item Value Reference Range Comments POC-GLUCOSE METER (BEAKER) 128 mg/dL 70-110 TESTED AT [address] (test sbav=8552) [place] [id number] POCT-GLUCOSE [id number] 11:02:00 Test Item Value Reference Range Comments POC-GLUCOSE METER (BEAKER) 137 mg/dL 70-110 TESTED AT [address] (test ctmr=4417) [facility] [address] POCT-GLUCOSE [id number] 11:02:00 Test Item Value Reference Range Comments POC-GLUCOSE METER (BEAKER) 141 mg/dL 70-110 TESTED AT [address] (test voxg=6913) [facility] [address] POCT-GLUCOSE [id number] 11:02:00 Test Item Value Reference Range Comments POC-GLUCOSE METER (BEAKER) 104 mg/dL 70-110 TESTED AT [address] (test paxh=3986) [facility] [address] BLOOD [id number] 11:00:00 Test Item Value Reference Range Comments CULTURE (BEAKER) (test qzpy=7101) No growth in 5 days BLOOD [id number] 11:00:00 Test Item Value Reference Range Comments CULTURE (BEAKER) (test buep=0961) No growth in 5 days CBC W/PLT COUNT & AUTO [id number] 08:54:00 Test Item Value Reference Range Comments WHITE BLOOD CELL COUNT (BEAKER) (test spzv=579) 13.8 K/ L 3.5-10.5 RED BLOOD CELL COUNT (BEAKER) (test aoth=359) 2.54 M/ L 3.93-5.22 HEMOGLOBIN (BEAKER) (test jrpa=995) 7.7 GM/DL 11.2-15.7 HEMATOCRIT (BEAKER) (test zuwe=108) 25.2 % 34.1-44.9 MEAN CORPUSCULAR VOLUME (BEAKER) (test ygfa=969) 99.2 fL 79.4-94.8 MEAN CORPUSCULAR HEMOGLOBIN (BEAKER) (test 30.3 pg 25.6-32.2 ikqq=329) MEAN CORPUSCULAR HEMOGLOBIN CONC (BEAKER) (test 30.6 GM/DL 32.2-35.5 xsmy=152) RED CELL DISTRIBUTION WIDTH (BEAKER) (test 15.2 % 11.7-14.4 cvbi=010) PLATELET COUNT (BEAKER) (test ojdf=961) 127 K/CU MM 150-450 MEAN PLATELET VOLUME (BEAKER) (test ehgb=060) 10.6 fL 9.4-12.3 NUCLEATED RED BLOOD CELLS (BEAKER) (test 0 /100 WBC 0-0 qqpj=067) NEUTROPHILS RELATIVE PERCENT (BEAKER) (test 81 % gwie=425) LYMPHOCYTES RELATIVE PERCENT (BEAKER) (test 8 % uslm=651) MONOCYTES RELATIVE PERCENT (BEAKER) (test 9 % sxjc=385) EOSINOPHILS RELATIVE PERCENT (BEAKER) (test 1 % cqam=463) BASOPHILS RELATIVE PERCENT (BEAKER) (test 0 % idlp=933) NEUTROPHILS ABSOLUTE COUNT (BEAKER) (test 11.11 K/ L 1.56-6.13 eocr=240) LYMPHOCYTES ABSOLUTE COUNT (BEAKER) (test 1.14 K/ L 1.18-3.74 hcsy=070) MONOCYTES ABSOLUTE COUNT (BEAKER) (test 1.20 K/ L 0.24-0.36 kijw=548) EOSINOPHILS ABSOLUTE COUNT (BEAKER) (test 0.15 K/ L 0.04-0.36 eoyl=659) BASOPHILS ABSOLUTE COUNT (BEAKER) (test 0.04 K/ L 0.01-0.08 xhkw=232) IMMATURE GRANULOCYTES-RELATIVE PERCENT (BEAKER) 1 % 0-1 (test pncj=0402) BLOOD GAS, [id number] 08:40:00 Test Item Value Reference Range Comments PH ARTERIAL (BEAKER) (test zlhw=193) 7.43 7.35-7.45 PCO2 ARTERIAL (BEAKER) (test glao=153) 35 mmHg 35-45 PO2 ARTERIAL (BEAKER) (test qawt=911) 82 mmHg 80-90 O2 SATURATION ARTERIAL (BEAKER) (test zsal=845) 95.7 % 96.0-97.0 HCO3 ARTERIAL (BEAKER) (test jolv=819) 22 mmol/L 21-29 BASE EXCESS ARTERIAL (BEAKER) (test gwoq=940) -1.3 mmol/L -2.0-3.0 PATIENT TEMPERATURE (BEAKER) (test xefn=5570) 38.3 C FIO2 (BEAKER) (test ylps=5887) 40.0 % [id number] 06:59:00 Test Item Value Reference Range Comments PHOSPHORUS (BEAKER) (test ltor=393) 3.4 mg/dL 2.3-4.7 [id number] 06:59:00 Test Item Value Reference Range Comments MAGNESIUM (BEAKER) (test vhcj=875) 2.0 mg/dL 1.6-2.6 BASIC METABOLIC [id number] 06:59:00 Test Item Value Reference Range Comments SODIUM (BEAKER) (test 147 meq/L 136-145 zozu=969) POTASSIUM (BEAKER) (test 3.7 meq/L 3.5-5.1 yhso=399) CHLORIDE (BEAKER) (test 111 meq/L 98-107 jedh=616) CO2 (BEAKER) (test 23 meq/L 22-29 idkk=035) BLOOD UREA NITROGEN 24 mg/dL 7-21 (BEAKER) (test fdxt=222) CREATININE (BEAKER) (test 1.57 mg/dL 0.57-1.25 jkcu=645) GLUCOSE RANDOM (BEAKER) 121 mg/dL 70-105 (test wquj=636) CALCIUM (BEAKER) (test 9.0 mg/dL 8.4-10.2 ptub=886) EGFR (BEAKER) (test 39 mL/min/1.73 sq m ESTIMATED GFR IS NOT bhne=4537) ACCURATE CREATININE CLEARANCE IN PREDICTING GLOMERULAR FILTRATION RATE. ESTIMATED GFR IS NOT APPLICABLE FOR DIALYSIS PATIENTS. POCT-GLUCOSE [id number] 06:27:00 Test Item Value Reference Range Comments POC-GLUCOSE METER (BEAKER) 95 mg/dL 70-110 TESTED AT [facility] [address] [facility] (test zxby=1823) [facility] [address] POCT-GLUCOSE [id number] 06:04:00 Test Item Value Reference Range Comments POC-GLUCOSE METER (BEAKER) 128 mg/dL 70-110 TESTED AT [facility] [address] (test ppjk=7058) [facility] [address] [id number] 05:36:00 Test Item Value Reference Range Comments PHOSPHORUS (BEAKER) (test wbze=188) 3.4 mg/dL 2.3-4.7 BASIC METABOLIC [id number] 05:36:00 Test Item Value Reference Range Comments SODIUM (BEAKER) (test 146 meq/L 136-145 oubu=720) POTASSIUM (BEAKER) (test 3.6 meq/L 3.5-5.1 bttj=813) CHLORIDE (BEAKER) (test 110 meq/L 98-107 vnec=684) CO2 (BEAKER) (test 25 meq/L 22-29 aspj=092) BLOOD UREA NITROGEN 25 mg/dL 7-21 (BEAKER) (test eqwk=756) CREATININE (BEAKER) (test 1.58 mg/dL 0.57-1.25 xyls=402) GLUCOSE RANDOM (BEAKER) 114 mg/dL 70-105 (test ahpd=475) CALCIUM (BEAKER) (test 8.9 mg/dL 8.4-10.2 ntbv=322) EGFR (BEAKER) (test 39 mL/min/1.73 sq m ESTIMATED GFR IS NOT rnet=7181) ACCURATE CREATININE CLEARANCE IN PREDICTING GLOMERULAR FILTRATION RATE. ESTIMATED GFR IS NOT APPLICABLE FOR DIALYSIS PATIENTS. HEPATIC FUNCTION [id number] 05:36:00 Test Item Value Reference Range Comments TOTAL PROTEIN (BEAKER) (test jbmm=062) 6.3 gm/dL 6.0-8.3 ALBUMIN (BEAKER) (test kwbr=3025) 3.1 g/dL 3.5-5.0 BILIRUBIN TOTAL (BEAKER) (test glle=371) 1.1 mg/dL 0.2-1.2 BILIRUBIN DIRECT (BEAKER) (test tqhe=243) 0.7 mg/dL 0.1-0.5 ALKALINE PHOSPHATASE (BEAKER) (test zzhp=501) 54 U/L 40-150 AST (SGOT) (BEAKER) (test hzhw=576) 23 U/L 5-34 ALT (SGPT) (BEAKER) (test vtlg=408) 17 U/L 6-55 LACTATE DEHYDROGENASE (LDH)2017-07-25 05:36:00 Test Item Value Reference Range Comments LACTATE DEHYDROGENASE (BEAKER) (test napr=081) 695 U/L 125-220 POCT-GLUCOSE [id number] 05:24:00 Test Item Value Reference Range Comments POC-GLUCOSE METER (BEAKER) 102 mg/dL 70-110 TESTED AT [facility] [address] [facility] (test opph=3144) [facility] [address] RAD, CHEST, 1 VIEW, NON [id number] 04:43:00Reason for exam:-> impellaShould this be performed at the bedside?->YesFINAL REPORT Chest one view. Clinical history: impella Comparison: Chest radiograph 07/24/17 Technique: A single frontal view of the chest was obtained. Findings: Cardiomediastinal contours are unchanged. Endotracheal and feeding tubes as well as a right IJ [place]-Jagdeep catheter are unchanged in position. There are patchy bibasilar opacities which may represent atelectasis and/or pneumonia. There is mild elevation of the left hemidiaphragm. There is no definite pleural effusionor pneumothorax. Signed: [facility] Verified Date/Time: 07/25/2017 04:43:27 ReadingLocation: [facility] B1 C013T Transitional Reading Room [id number] 00:51:00 Test Item Value Reference Range Comments PHOSPHORUS (BEAKER) (test tktk=160) 3.4 mg/dL 2.3-4.7 BASIC METABOLIC [id number] 00:51:00 Test Item Value Reference Range Comments SODIUM (BEAKER) (test 146 meq/L 136-145 hmij=526) POTASSIUM (BEAKER) (test 4.0 meq/L 3.5-5.1 qrzd=572) CHLORIDE (BEAKER) (test 110 meq/L 98-107 hbnp=324) CO2 (BEAKER) (test 26 meq/L 22-29 nalw=284) BLOOD UREA NITROGEN 26 mg/dL 7-21 (BEAKER) (test wvnn=307) CREATININE (BEAKER) (test 1.53 mg/dL 0.57-1.25 koqg=412) GLUCOSE RANDOM (BEAKER) 105 mg/dL 70-105 (test nxiv=614) CALCIUM (BEAKER) (test 8.8 mg/dL 8.4-10.2 gppj=201) EGFR (BEAKER) (test 41 mL/min/1.73 sq m ESTIMATED GFR IS NOT nbxp=4323) ACCURATE CREATININE CLEARANCE IN PREDICTING GLOMERULAR FILTRATION RATE. ESTIMATED GFR IS NOT APPLICABLE FOR DIALYSIS PATIENTS. POCT-GLUCOSE [id number] 00:32:00 Test Item Value Reference Range Comments POC-GLUCOSE METER (BEAKER) 119 mg/dL 70-110 TESTED AT [address] (test vspa=1050) [place] [address] POCT-GLUCOSE [id number] 00:27:00 Test Item Value Reference Range Comments POC-GLUCOSE METER (BEAKER) 114 mg/dL 70-110 TESTED AT [address] (test pjls=9396) [place] [address] POCT-GLUCOSE [id number] 23:58:00 Test Item Value Reference Range Comments POC-GLUCOSE METER (BEAKER) 117 mg/dL 70-110 TESTED AT [address] (test ffau=2288) [place] [address] [id number] 21:24:00 Test Item Value Reference Range Comments MAGNESIUM (BEAKER) (test fcum=630) 2.0 mg/dL 1.6-2.6 POCT-GLUCOSE [id number] 20:24:00 Test Item Value Reference Range Comments POC-GLUCOSE METER (BEAKER) 130 mg/dL 70-110 TESTED AT [address] (test fscf=0721) [place] [address] [id number] 19:20:00 Test Item Value Reference Range Comments POTASSIUM (BEAKER) (test qdhc=051) 3.6 meq/L 3.5-5.1 [id number] 19:20:00 Test Item Value Reference Range Comments GLUCOSE RANDOM (BEAKER) (test qtep=867) 168 mg/dL 70-105 [id number] 18:01:00 Test Item Value Reference Range Comments PHOSPHORUS (BEAKER) (test xjez=312) 3.7 mg/dL 2.3-4.7 BASIC METABOLIC [id number] 18:01:00 Test Item Value Reference Range Comments SODIUM (BEAKER) (test 145 meq/L 136-145 dgpr=728) POTASSIUM (BEAKER) (test 3.9 meq/L 3.5-5.1 xchn=810) CHLORIDE (BEAKER) (test 109 meq/L 98-107 ehdk=081) CO2 (BEAKER) (test 27 meq/L 22-29 rtjo=258) BLOOD UREA NITROGEN 26 mg/dL 7-21 (BEAKER) (test qgdb=054) CREATININE (BEAKER) (test 1.47 mg/dL 0.57-1.25 usvu=521) GLUCOSE RANDOM (BEAKER) 210 mg/dL 70-105 (test klup=727) CALCIUM (BEAKER) (test 8.5 mg/dL 8.4-10.2 ypzr=291) EGFR (BEAKER) (test 43 mL/min/1.73 sq m ESTIMATED GFR IS NOT jfrj=4191) ACCURATE CREATININE CLEARANCE IN PREDICTING GLOMERULAR FILTRATION RATE. ESTIMATED GFR IS NOT APPLICABLE FOR DIALYSIS PATIENTS. GLUCOSE-STAT [id number] 17:14:00 Test Item Value Reference Range Comments GLUCOSE RANDOM (BEAKER) (test kwye=427) 208 mg/dL 70-110 BLOOD GAS, [id number] 17:13:00 Test Item Value Reference Range Comments PH ARTERIAL (BEAKER) (test zval=177) 7.44 7.35-7.45 PCO2 ARTERIAL (BEAKER) (test rffe=911) 43 mmHg 35-45 PO2 ARTERIAL (BEAKER) (test vwvw=663) 58 mmHg 80-90 O2 SATURATION ARTERIAL (BEAKER) (test smqb=099) 90.8 % 96.0-97.0 HCO3 ARTERIAL (BEAKER) (test poyx=967) 28 mmol/L 21-29 BASE EXCESS ARTERIAL (BEAKER) (test vxpo=607) 3.9 mmol/L -2.0-3.0 PATIENT TEMPERATURE (BEAKER) (test rqrp=1496) 37.0 C FIO2 (BEAKER) (test tlmz=7292) 100.0 % RAD, CHEST, 1 VIEW, NON [id number] 14:00:00Reason for exam:->post intubationShould this be performed at the bedside?->YesFINAL REPORT AP chest. HISTORY: Endotracheal tube COMPARISON: 07/24/2017 IMPRESSION:Endotracheal tube projects deep in the trachea, approximately 1-2 cm above the level of the toro. Cardiomegaly similar to previous. Worsening aeration at the left lung base. Mild pulmonary vascular congestion. No pneumothorax. Signed: Mitchel Jarquin MDReport Verified Date/Time: 07/24/2017 14:00:17 Reading Location: [facility] C013Y CT Body Reading Room [id number] 13:40:00 Test Item Value Reference Range Comments PHOSPHORUS (BEAKER) (test snxy=592) 4.3 mg/dL 2.3-4.7 [id number] 13:40:00 Test Item Value Reference Range Comments MAGNESIUM (BEAKER) (test jdwv=939) 2.0 mg/dL 1.6-2.6 BASIC METABOLIC [id number] 13:40:00 Test Item Value Reference Range Comments SODIUM (BEAKER) (test 145 meq/L 136-145 kxfa=300) POTASSIUM (BEAKER) (test 3.9 meq/L 3.5-5.1 lrrf=439) CHLORIDE (BEAKER) (test 108 meq/L 98-107 sybu=304) CO2 (BEAKER) (test 24 meq/L 22-29 afqs=409) BLOOD UREA NITROGEN 28 mg/dL 7-21 (BEAKER) (test bwom=117) CREATININE (BEAKER) (test 1.43 mg/dL 0.57-1.25 auif=681) GLUCOSE RANDOM (BEAKER) 206 mg/dL 70-105 (test zhqy=117) CALCIUM (BEAKER) (test 8.5 mg/dL 8.4-10.2 kumn=180) EGFR (BEAKER) (test 44 mL/min/1.73 sq m ESTIMATED GFR IS NOT itut=3547) ACCURATE CREATININE CLEARANCE IN PREDICTING GLOMERULAR FILTRATION RATE. ESTIMATED GFR IS NOT APPLICABLE FOR DIALYSIS PATIENTS. LACTIC ACID, ARTERIAL, WHOLE [id number] 13:36:00 Test Item Value Reference Range Comments LACTATE BLOOD ARTERIAL (2) (BEAKER) (test 0.7 mmol/L 0.5-2.2 voor=5901) Effective 08/06/2015: Units/Reference Range ChangeNew: 0.5-2.2 mmol/L Previous: 5 -20 mg/dLCBC W/PLT COUNT & AUTO [id number] 13:24:00 Test Item Value Reference Range Comments WHITE BLOOD CELL COUNT (BEAKER) (test bjbt=005) 10.5 K/ L 3.5-10.5 RED BLOOD CELL COUNT (BEAKER) (test altb=343) 2.70 M/ L 3.93-5.22 HEMOGLOBIN (BEAKER) (test phzm=749) 8.1 GM/DL 11.2-15.7 HEMATOCRIT (BEAKER) (test nofi=232) 27.0 % 34.1-44.9 MEAN CORPUSCULAR VOLUME (BEAKER) (test eofd=995) 100.0 fL 79.4-94.8 MEAN CORPUSCULAR HEMOGLOBIN (BEAKER) (test 30.0 pg 25.6-32.2 lxew=225) MEAN CORPUSCULAR HEMOGLOBIN CONC (BEAKER) (test 30.0 GM/DL 32.2-35.5 etle=687) RED CELL DISTRIBUTION WIDTH (BEAKER) (test 14.9 % 11.7-14.4 yxcb=193) PLATELET COUNT (BEAKER) (test otpu=724) 117 K/CU MM 150-450 MEAN PLATELET VOLUME (BEAKER) (test lgyr=440) 10.9 fL 9.4-12.3 NUCLEATED RED BLOOD CELLS (BEAKER) (test 0 /100 WBC 0-0 qzze=148) NEUTROPHILS RELATIVE PERCENT (BEAKER) (test 78 % cyev=833) LYMPHOCYTES RELATIVE PERCENT (BEAKER) (test 10 % vxwr=284) MONOCYTES RELATIVE PERCENT (BEAKER) (test 10 % iftu=258) EOSINOPHILS RELATIVE PERCENT (BEAKER) (test 1 % kbhz=634) BASOPHILS RELATIVE PERCENT (BEAKER) (test 0 % fqcn=744) NEUTROPHILS ABSOLUTE COUNT (BEAKER) (test 8.20 K/ L 1.56-6.13 mndh=568) LYMPHOCYTES ABSOLUTE COUNT (BEAKER) (test 1.00 K/ L 1.18-3.74 ryew=748) MONOCYTES ABSOLUTE COUNT (BEAKER) (test 1.06 K/ L 0.24-0.36 mzlf=037) EOSINOPHILS ABSOLUTE COUNT (BEAKER) (test 0.09 K/ L 0.04-0.36 jpwy=683) BASOPHILS ABSOLUTE COUNT (BEAKER) (test 0.04 K/ L 0.01-0.08 todu=427) IMMATURE GRANULOCYTES-RELATIVE PERCENT (BEAKER) 1 % 0-1 (test psqn=4736) OXYGEN SATURATION, [id number] 13:08:00 Test Item Value Reference Range Comments O2 SATURATION (MEASURED) (BEAKER) (test kylm=5349) 65.1 % PA catheter tipBLOOD GAS, [id number] 13:08:00 Test Item Value Reference Range Comments PH ARTERIAL (BEAKER) (test eyxh=477) 7.42 7.35-7.45 PCO2 ARTERIAL (BEAKER) (test aptw=713) 42 mmHg 35-45 PO2 ARTERIAL (BEAKER) (test ykpp=836) 239 mmHg 80-90 O2 SATURATION ARTERIAL (BEAKER) (test bqrb=837) 99.6 % 96.0-97.0 HCO3 ARTERIAL (BEAKER) (test nbkm=750) 27 mmol/L 21-29 BASE EXCESS ARTERIAL (BEAKER) (test necz=766) 2.1 mmol/L -2.0-3.0 PATIENT TEMPERATURE (BEAKER) (test esgz=8159) 36.6 C FIO2 (BEAKER) (test lufv=6707) 100.0 % GLUCOSE-STAT [id number] 13:08:00 Test Item Value Reference Range Comments GLUCOSE RANDOM (BEAKER) (test odtf=743) 194 mg/dL 70-110 HGB/HCT (H&H) - STAT [id number] 13:08:00 Test Item Value Reference Range Comments HEMOGLOBIN (BEAKER) (test tkpz=964) 8.8 g/dL 12.0-15.0 HEMATOCRIT (BEAKER) (test cuvj=534) 26.0 % 36.0-45.0 CALCIUM, [id number] 13:08:00 Test Item Value Reference Range Comments CALCIUM IONIZED (BEAKER) (test qyfe=793) 1.08 mmol/L 1.12-1.27 PH, BLOOD (BEAKER) (test hdgn=2915) 7.41 SODIUM NA-STAT [id number] 13:07:00 Test Item Value Reference Range Comments SODIUM (BEAKER) (test oiaz=142) 140 meq/L 135-148 POTASSIUM-STAT [id number] 13:07:00 Test Item Value Reference Range Comments POTASSIUM (BEAKER) (test xytb=088) 3.7 meq/L 3.6-5.5 SODIUM NA-STAT [id number] 11:39:00 Test Item Value Reference Range Comments SODIUM (BEAKER) (test oztr=126) 141 meq/L 135-148 POTASSIUM-STAT [id number] 11:39:00 Test Item Value Reference Range Comments POTASSIUM (BEAKER) (test vpjg=423) 3.6 meq/L 3.6-5.5 BLOOD GAS, [id number] 11:39:00 Test Item Value Reference Range Comments PH ARTERIAL (BEAKER) (test watc=077) 7.44 7.35-7.45 PCO2 ARTERIAL (BEAKER) (test xuba=896) 42 mmHg 35-45 PO2 ARTERIAL (BEAKER) (test usxe=379) 234 mmHg 80-90 O2 SATURATION ARTERIAL (BEAKER) (test faga=360) 99.6 % 96.0-97.0 HCO3 ARTERIAL (BEAKER) (test fmzf=669) 28 mmol/L 21-29 BASE EXCESS ARTERIAL (BEAKER) (test tzez=088) 3.4 mmol/L -2.0-3.0 PATIENT TEMPERATURE (BEAKER) (test yxuo=0564) 36.8 C FIO2 (BEAKER) (test xbtd=4684) 86.0 % GLUCOSE-STAT [id number] 11:39:00 Test Item Value Reference Range Comments GLUCOSE RANDOM (BEAKER) (test fwti=113) 194 mg/dL 70-110 HGB/HCT (H&H) - STAT [id number] 11:39:00 Test Item Value Reference Range Comments HEMOGLOBIN (BEAKER) (test askq=274) 8.8 g/dL 12.0-15.0 HEMATOCRIT (BEAKER) (test elah=428) 26.0 % 36.0-45.0 CALCIUM, [id number] 11:39:00 Test Item Value Reference Range Comments CALCIUM IONIZED (BEAKER) (test ucro=590) 1.06 mmol/L 1.12-1.27 PH, BLOOD (BEAKER) (test ygxz=7865) 7.44 BLOOD GAS, [id number] 10:56:00 Test Item Value Reference Range Comments PH ARTERIAL (BEAKER) (test rhih=813) 7.43 7.35-7.45 PCO2 ARTERIAL (BEAKER) (test dmaq=138) 46 mmHg 35-45 PO2 ARTERIAL (BEAKER) (test ktod=267) 223 mmHg 80-90 O2 SATURATION ARTERIAL (BEAKER) (test nosn=147) 99.5 % 96.0-97.0 HCO3 ARTERIAL (BEAKER) (test thcb=785) 30 mmol/L 21-29 BASE EXCESS ARTERIAL (BEAKER) (test arkh=803) 4.6 mmol/L -2.0-3.0 PATIENT TEMPERATURE (BEAKER) (test kwse=2198) 37.0 C FIO2 (BEAKER) (test eedb=1489) 100.0 % GLUCOSE-STAT [id number] 10:56:00 Test Item Value Reference Range Comments GLUCOSE RANDOM (BEAKER) (test ryba=261) 190 mg/dL 70-110 HGB/HCT (H&H) - STAT [id number] 10:56:00 Test Item Value Reference Range Comments HEMOGLOBIN (BEAKER) (test ihev=110) 8.7 g/dL 12.0-15.0 HEMATOCRIT (BEAKER) (test zfjb=907) 26.0 % 36.0-45.0 SODIUM NA-STAT [id number] 10:55:00 Test Item Value Reference Range Comments SODIUM (BEAKER) (test xrbe=981) 142 meq/L 135-148 POTASSIUM-STAT [id number] 10:55:00 Test Item Value Reference Range Comments POTASSIUM (BEAKER) (test qrol=881) 3.5 meq/L 3.6-5.5 [id number] 08:41:00 Test Item Value Reference Range Comments MAGNESIUM (BEAKER) (test czaf=300) 2.0 mg/dL 1.6-2.6 BLOOD GAS, [id number] 07:57:00 Test Item Value Reference Range Comments PH ARTERIAL (BEAKER) (test rama=972) 7.48 7.35-7.45 PCO2 ARTERIAL (BEAKER) (test onkp=918) 37 mmHg 35-45 PO2 ARTERIAL (BEAKER) (test etmb=790) 71 mmHg 80-90 O2 SATURATION ARTERIAL (BEAKER) (test euut=344) 94.8 % 96.0-97.0 HCO3 ARTERIAL (BEAKER) (test xdmd=883) 27 mmol/L 21-29 BASE EXCESS ARTERIAL (BEAKER) (test uclu=253) 3.5 mmol/L -2.0-3.0 PATIENT TEMPERATURE (BEAKER) (test ueak=7691) 37.8 C FIO2 (BEAKER) (test vhjb=8197) 32.0 % POCT-GLUCOSE [id number] 07:50:00 Test Item Value Reference Range Comments POC-GLUCOSE METER (BEAKER) 246 mg/dL 70-110 TESTED AT [address] (test wtvp=2609) [place] [address] RAD, CHEST, 1 VIEW, NON [id number] 04:54:00Reason for exam:-> impellaShould this be performed at the bedside?->YesFINAL REPORT CLINICAL INDICATION: Support lines. Comparison: 07/23/2017 The cardiomediastinal contours are stable. Central pulmonary vascular prominence and bilateral parenchymalopacities are similar to previous. There is no pneumothorax. Support lines are stable. Signed: Adelso Sorensen Verified Date/Time: 07/24/2017 04:54:08 Reading Location: [address] Reading Room POCT-GLUCOSE [id number] 04:08:00 Test Item Value Reference Range Comments POC-GLUCOSE METER (BEAKER) 137 mg/dL 70-110 TESTED AT [address] (test ogas=5734) [place] [address] [id number] 03:02:00 Test Item Value Reference Range Comments PHOSPHORUS (BEAKER) (test lxbi=811) 3.7 mg/dL 2.3-4.7 [id number] 03:02:00 Test Item Value Reference Range Comments MAGNESIUM (BEAKER) (test jsyr=271) 2.3 mg/dL 1.6-2.6 BASIC METABOLIC [id number] 03:02:00 Test Item Value Reference Range Comments SODIUM (BEAKER) (test 145 meq/L 136-145 geeh=281) POTASSIUM (BEAKER) (test 4.0 meq/L 3.5-5.1 nnvp=177) CHLORIDE (BEAKER) (test 106 meq/L 98-107 gpfz=368) CO2 (BEAKER) (test 26 meq/L 22-29 yvjf=081) BLOOD UREA NITROGEN 26 mg/dL 7-21 (BEAKER) (test ntsg=820) CREATININE (BEAKER) (test 1.47 mg/dL 0.57-1.25 kugw=236) GLUCOSE RANDOM (BEAKER) 141 mg/dL 70-105 (test iqac=244) CALCIUM (BEAKER) (test 9.0 mg/dL 8.4-10.2 kdrh=665) EGFR (BEAKER) (test 43 mL/min/1.73 sq m ESTIMATED GFR IS NOT mixj=9431) ACCURATE CREATININE CLEARANCE IN PREDICTING GLOMERULAR FILTRATION RATE. ESTIMATED GFR IS NOT APPLICABLE FOR DIALYSIS PATIENTS. HEPATIC FUNCTION [id number] 03:02:00 Test Item Value Reference Range Comments TOTAL PROTEIN (BEAKER) (test zzlu=775) 6.6 gm/dL 6.0-8.3 ALBUMIN (BEAKER) (test aaov=8338) 3.2 g/dL 3.5-5.0 BILIRUBIN TOTAL (BEAKER) (test enni=513) 1.2 mg/dL 0.2-1.2 BILIRUBIN DIRECT (BEAKER) (test qhgo=268) 0.6 mg/dL 0.1-0.5 ALKALINE PHOSPHATASE (BEAKER) (test ftup=161) 55 U/L 40-150 AST (SGOT) (BEAKER) (test bynu=552) 33 U/L 5-34 ALT (SGPT) (BEAKER) (test wizc=705) 25 U/L 6-55 LACTATE DEHYDROGENASE (LDH)2017-07-24 03:02:00 Test Item Value Reference Range Comments LACTATE DEHYDROGENASE (BEAKER) (test brxm=627) 879 U/L 125-220 CBC W/PLT COUNT & AUTO [id number] 02:53:00 Test Item Value Reference Range Comments WHITE BLOOD CELL COUNT (BEAKER) (test pkhe=818) 12.6 K/ L 3.5-10.5 RED BLOOD CELL COUNT (BEAKER) (test yhbq=091) 2.93 M/ L 3.93-5.22 HEMOGLOBIN (BEAKER) (test kahb=175) 8.7 GM/DL 11.2-15.7 HEMATOCRIT (BEAKER) (test wkfm=809) 28.3 % 34.1-44.9 MEAN CORPUSCULAR VOLUME (BEAKER) (test gutu=211) 96.6 fL 79.4-94.8 MEAN CORPUSCULAR HEMOGLOBIN (BEAKER) (test 29.7 pg 25.6-32.2 uilt=761) MEAN CORPUSCULAR HEMOGLOBIN CONC (BEAKER) (test 30.7 GM/DL 32.2-35.5 bcys=527) RED CELL DISTRIBUTION WIDTH (BEAKER) (test 14.7 % 11.7-14.4 zpjo=354) PLATELET COUNT (BEAKER) (test ncep=796) 126 K/CU MM 150-450 MEAN PLATELET VOLUME (BEAKER) (test krti=401) 11.0 fL 9.4-12.3 NUCLEATED RED BLOOD CELLS (BEAKER) (test 0 /100 WBC 0-0 ulxo=414) NEUTROPHILS RELATIVE PERCENT (BEAKER) (test 78 % aznv=698) LYMPHOCYTES RELATIVE PERCENT (BEAKER) (test 10 % esqh=971) MONOCYTES RELATIVE PERCENT (BEAKER) (test 10 % ztoi=279) EOSINOPHILS RELATIVE PERCENT (BEAKER) (test 1 % nkeu=776) BASOPHILS RELATIVE PERCENT (BEAKER) (test 0 % xaxv=217) NEUTROPHILS ABSOLUTE COUNT (BEAKER) (test 9.85 K/ L 1.56-6.13 cmvd=915) LYMPHOCYTES ABSOLUTE COUNT (BEAKER) (test 1.27 K/ L 1.18-3.74 qgqh=623) MONOCYTES ABSOLUTE COUNT (BEAKER) (test 1.25 K/ L 0.24-0.36 pwam=411) EOSINOPHILS ABSOLUTE COUNT (BEAKER) (test 0.10 K/ L 0.04-0.36 rslq=387) BASOPHILS ABSOLUTE COUNT (BEAKER) (test 0.05 K/ L 0.01-0.08 fanp=548) IMMATURE GRANULOCYTES-RELATIVE PERCENT (BEAKER) 1 % 0-1 (test lpzf=4394) [id number] 02:50:00 Test Item Value Reference Range Comments PROTIME (BEAKER) (test hqlt=020) 16.7 seconds 11.7-14.7 INR (BEAKER) (test owhz=333) 1.4 <=5.9 PARTIAL THROMBOPLASTIN TIME (BEAKER) (test 78.5 seconds 22.5-36.0 tvjv=662) RECOMMENDED COUMADIN/WARFARIN INR THERAPY RANGESSTANDARD DOSE: 2.0 - 3.0 Includes: PROPHYLAXIS forvenous thrombosis, systemic embolization; TREATMENT for venous thrombosis and/or pulmonary embolus.HIGH RISK: Target INR is 2.5-3.5 for patients with mechanical heart valves.BLOOD [id number] 00:00:00 Test Item Value Reference Range Comments CULTURE (BEAKER) (test slom=1140) No growth in 5 days BLOOD [id number] 00:00:00 Test Item Value Reference Range Comments CULTURE (BEAKER) (test gfhe=4475) No growth in 5 days [id number] 22:01:00 Test Item Value Reference Range Comments MAGNESIUM (BEAKER) (test vxtw=806) 2.0 mg/dL 1.6-2.6 POCT-GLUCOSE [id number] 19:39:00 Test Item Value Reference Range Comments POC-GLUCOSE METER (BEAKER) 135 mg/dL 70-110 TESTED AT [address] (test idtd=1134) [facility] [address] BASIC METABOLIC [id number] 19:08:00 Test Item Value Reference Range Comments SODIUM (BEAKER) (test 145 meq/L 136-145 difk=219) POTASSIUM (BEAKER) (test 3.9 meq/L 3.5-5.1 jfva=879) CHLORIDE (BEAKER) (test 106 meq/L 98-107 rvjm=174) CO2 (BEAKER) (test 28 meq/L 22-29 uyyi=969) BLOOD UREA NITROGEN 26 mg/dL 7-21 (BEAKER) (test utgb=707) CREATININE (BEAKER) (test 1.45 mg/dL 0.57-1.25 icmj=634) GLUCOSE RANDOM (BEAKER) 119 mg/dL 70-105 (test auzx=965) CALCIUM (BEAKER) (test 9.2 mg/dL 8.4-10.2 nxar=064) EGFR (BEAKER) (test 43 mL/min/1.73 sq m ESTIMATED GFR IS NOT zbor=8682) ACCURATE CREATININE CLEARANCE IN PREDICTING GLOMERULAR FILTRATION RATE. ESTIMATED GFR IS NOT APPLICABLE FOR DIALYSIS PATIENTS. [id number] 19:06:00 Test Item Value Reference Range Comments PHOSPHORUS (BEAKER) (test lvem=097) 3.7 mg/dL 2.3-4.7 VANCOMYCIN LEVEL, [id number] 16:33:00 Test Item Value Reference Range Comments VANCOMYCIN TROUGH (BEAKER) (test qjdw=613) 17.8 ug/mL 10.0-20.0 If vancomycin trough level > 20 mcg/mL, hold next vancomycin dose, and contact MD and pharmacist.VARICELLA ZOSTER ANTIBODY, [id number] 14:47:00 Test Item Value Reference Range Comments VARICELLA ZOSTER IGG (AL) (BEAKER) (test daxd=0016) 2.3 Al VARICELLA ZOSTER RESULT INTERPRETATIONS: <=0.8 Al Nonreactive: Presumed non-immune to VZV 0.9-1.0 Al Equivocal >=1.1 Al Reactive: Presumed immune to VZVCYTOMEGALOVIRUS ANTIBODY, [id number] 14:46:00 Test Item Value Reference Range Comments CYTOMEGALOVIRUS IGG ANTIBODY (BEAKER) (test Negative idet=915) CYTOMEGALOVIRUS ANTIBODY, [id number] 14:46:00 Test Item Value Reference Range Comments CYTOMEGALOVIRUS IGM ANTIBODY (BEAKER) (test Negative ymap=206) EBV-VCA ANTIBODY, [id number] 14:46:00 Test Item Value Reference Range Comments MARIO-CARMEN VCA IGG (BEAKER) (test kzpi=012) Positive EBV-VCA ANTIBODY, [id number] 14:46:00 Test Item Value Reference Range Comments MARIO-CARMEN VCA IGM (BEAKER) (test vann=707) Negative HERPES VIRUS ANTIBODY, [id number] 14:45:00 Test Item Value Reference Range Comments HERPES VIRUS IGG (BEAKER) (test ikrx=1758) Negative HSV IgG 1=NEGATIVEHSV IgG 2=NEGATIVETOXOPLASMA GONDII ANTIBODY, [id number] 14 :45:00 Test Item Value Reference Range Comments TOXOPLASMA GONDII IGG (BEAKER) (test otnq=153) Negative [id number] 14:37:00 Test Item Value Reference Range Comments PARTIAL THROMBOPLASTIN TIME (BEAKER) (test 69.5 seconds 22.5-36.0 hauz=204) OCCULT BLOOD, [id number] 14:34:00 Test Item Value Reference Range Comments FECAL OCCULT BLOOD (BEAKER) (test zewx=911) Negative Negative POCT-GLUCOSE [id number] 14:20:00 Test Item Value Reference Range Comments POC-GLUCOSE METER (BEAKER) 166 mg/dL 70-110 TESTED AT [address] (test xbtw=3865) [place] [id number] POCT-GLUCOSE [id number] 14:20:00 Test Item Value Reference Range Comments POC-GLUCOSE METER (BEAKER) 82 mg/dL 70-110 TESTED AT [address] (test velb=4063) [place] [id number] 13:00:00 Test Item Value Reference Range Comments PHOSPHORUS (BEAKER) (test emne=824) 3.2 mg/dL 2.3-4.7 BASIC METABOLIC [id number] 13:00:00 Test Item Value Reference Range Comments SODIUM (BEAKER) (test 143 meq/L 136-145 lgpf=422) POTASSIUM (BEAKER) (test 3.8 meq/L 3.5-5.1 dvdd=396) CHLORIDE (BEAKER) (test 104 meq/L 98-107 sewl=190) CO2 (BEAKER) (test 29 meq/L 22-29 mwxe=149) BLOOD UREA NITROGEN 28 mg/dL 7-21 (BEAKER) (test ahde=729) CREATININE (BEAKER) (test 1.44 mg/dL 0.57-1.25 fyun=741) GLUCOSE RANDOM (BEAKER) 171 mg/dL 70-105 (test umjn=787) CALCIUM (BEAKER) (test 9.1 mg/dL 8.4-10.2 ytiu=312) EGFR (BEAKER) (test 44 mL/min/1.73 sq m ESTIMATED GFR IS NOT czhj=1754) ACCURATE CREATININE CLEARANCE IN PREDICTING GLOMERULAR FILTRATION RATE. ESTIMATED GFR IS NOT APPLICABLE FOR DIALYSIS PATIENTS. POCT-GLUCOSE [id number] 12:29:00 Test Item Value Reference Range Comments POC-GLUCOSE METER (BEAKER) 179 mg/dL 70-110 TESTED AT [address] (test bujp=3078) [facility] [address] CREATININE [id number] 11:15:00 Test Item Value Reference Range Comments CREATININE CLEARANCE (BEAKER) 45.8 mL/min 70.0-140.0 (test aclb=578) VOLUME, TOTAL (BEAKER) (test 3400 ml dyfl=8608) CREATININE URINE (BEAKER) (test 36.8 mg/dL hbqg=271) [id number]-BPPVHSMPIHZ-576 (BEAKER) Анна Encarnacion MD (test cyai=7087) (electronic signature) PATIENT HEIGHT (CM) (BEAKER) 165.1 cm (test zgxi=0625) PATIENT WEIGHT (KG) (BEAKER) 84.100 kg (test dteb=5796) [id number] 09:15:00 Test Item Value Reference Range Comments POTASSIUM (BEAKER) (test zwrg=573) 4.1 meq/L 3.5-5.1 PRN - repeat potassium levels every 1 hour until glucose level is less than 450 mg/[id number] 09:15:00 Test Item Value Reference Range Comments MAGNESIUM (BEAKER) (test scdf=392) 2.4 mg/dL 1.6-2.6 PRN - repeat potassium levels every 1 hour until glucose level is less than 450 mg/dLPOCT-GLUCOSE [id number] 08:47:00 Test Item Value Reference Range Comments POC-GLUCOSE METER (BEAKER) 155 mg/dL 70-110 TESTED AT [address] (test xagq=2771) [facility] [address] POCT-GLUCOSE [id number] 06:12:00 Test Item Value Reference Range Comments POC-GLUCOSE METER (BEAKER) 143 mg/dL 70-110 TESTED AT [address] (test vkpz=3682) [facility] [address] POCT-GLUCOSE [id number] 06:12:00 Test Item Value Reference Range Comments POC-GLUCOSE METER (BEAKER) 123 mg/dL 70-110 TESTED AT [address] (test pwhv=7540) [facility] [address] RAD, CHEST, 1 VIEW, NON [id number] 05:36:00Reason for exam:->respiratory insufficiencyFINAL REPORT Chest one view. Clinical history: respiratory insufficiency Comparison: Chest radiograph 07/22/2017 Technique: A single frontal view of the chest was obtained. Findings: Cardiomediastinal contours are unchanged. There is a right IJ [place]-Jagdeep catheter, with tip inthe right pulmonary artery. [...] Ramirezeport Verified Date/Time: 07/23/2017 05:36:35 Reading Location: [address] Reading Room CALCIUM, [id number] 05:19:00 Test Item Value Reference Range Comments CALCIUM IONIZED (BEAKER) (test oxff=872) 1.12 mmol/L 1.12-1.27 PH, BLOOD (BEAKER) (test pjte=9732) 7.40 OXYGEN SATURATION, [id number] 05:18:00 Test Item Value Reference Range Comments O2 SATURATION (MEASURED) (BEAKER) (test qrxo=1300) 63.1 % POCT-GLUCOSE [id number] 05:05:00 Test Item Value Reference Range Comments POC-GLUCOSE METER (BEAKER) 131 mg/dL 70-110 TESTED AT [address] (test raic=8406) [facility] [address] BLOOD GAS, [id number] 04:58:00 Test Item Value Reference Range Comments PH ARTERIAL (BEAKER) (test ywyx=969) 7.41 7.35-7.45 PCO2 ARTERIAL (BEAKER) (test bbug=799) 51 mmHg 35-45 PO2 ARTERIAL (BEAKER) (test dftf=390) 93 mmHg 80-90 O2 SATURATION ARTERIAL (BEAKER) (test oucm=498) 96.9 % 96.0-97.0 HCO3 ARTERIAL (BEAKER) (test ujvb=600) 31 mmol/L 21-29 BASE EXCESS ARTERIAL (BEAKER) (test ejjd=751) 5.9 mmol/L -2.0-3.0 PATIENT TEMPERATURE (BEAKER) (test pwce=8131) 37.4 C FIO2 (BEAKER) (test elnz=0519) 70.0 % [id number] 03:35:00 Test Item Value Reference Range Comments PARTIAL THROMBOPLASTIN TIME (BEAKER) (test 70.8 seconds 22.5-36.0 jheu=241) [id number] 03:34:00 Test Item Value Reference Range Comments PHOSPHORUS (BEAKER) (test nvvw=716) 3.0 mg/dL 2.3-4.7 [id number] 03:34:00 Test Item Value Reference Range Comments MAGNESIUM (BEAKER) (test ldjf=123) 2.1 mg/dL 1.6-2.6 BASIC METABOLIC [id number] 03:34:00 Test Item Value Reference Range Comments SODIUM (BEAKER) (test 144 meq/L 136-145 urps=180) POTASSIUM (BEAKER) (test 3.9 meq/L 3.5-5.1 wfuq=941) CHLORIDE (BEAKER) (test 105 meq/L 98-107 cutn=476) CO2 (BEAKER) (test 29 meq/L 22-29 ooyx=851) BLOOD UREA NITROGEN 29 mg/dL 7-21 (BEAKER) (test dkeq=784) CREATININE (BEAKER) (test 1.54 mg/dL 0.57-1.25 zeyy=737) GLUCOSE RANDOM (BEAKER) 119 mg/dL 70-105 (test ygfj=215) CALCIUM (BEAKER) (test 9.1 mg/dL 8.4-10.2 erzl=207) EGFR (BEAKER) (test 40 mL/min/1.73 sq m ESTIMATED GFR IS NOT xumq=6344) ACCURATE CREATININE CLEARANCE IN PREDICTING GLOMERULAR FILTRATION RATE. ESTIMATED GFR IS NOT APPLICABLE FOR DIALYSIS PATIENTS. HEPATIC FUNCTION [id number] 03:34:00 Test Item Value Reference Range Comments TOTAL PROTEIN (BEAKER) (test aytz=426) 6.7 gm/dL 6.0-8.3 ALBUMIN (BEAKER) (test avro=2005) 3.3 g/dL 3.5-5.0 BILIRUBIN TOTAL (BEAKER) (test ocxv=007) 1.2 mg/dL 0.2-1.2 BILIRUBIN DIRECT (BEAKER) (test aipl=973) 0.6 mg/dL 0.1-0.5 ALKALINE PHOSPHATASE (BEAKER) (test jpvq=062) 51 U/L 40-150 AST (SGOT) (BEAKER) (test ihbp=967) 48 U/L 5-34 ALT (SGPT) (BEAKER) (test kafz=410) 29 U/L 6-55 LACTATE DEHYDROGENASE (LDH)2017-07-23 03:34:00 Test Item Value Reference Range Comments LACTATE DEHYDROGENASE (BEAKER) (test yide=264) 1020 U/L 125-220 CBC W/PLT COUNT & AUTO [id number] 03:25:00 Test Item Value Reference Range Comments WHITE BLOOD CELL COUNT (BEAKER) (test vqxb=636) 11.7 K/ L 3.5-10.5 RED BLOOD CELL COUNT (BEAKER) (test hwzq=470) 3.01 M/ L 3.93-5.22 HEMOGLOBIN (BEAKER) (test ixgx=966) 9.0 GM/DL 11.2-15.7 HEMATOCRIT (BEAKER) (test pmmn=455) 28.9 % 34.1-44.9 MEAN CORPUSCULAR VOLUME (BEAKER) (test pnqb=276) 96.0 fL 79.4-94.8 MEAN CORPUSCULAR HEMOGLOBIN (BEAKER) (test 29.9 pg 25.6-32.2 nhgi=892) MEAN CORPUSCULAR HEMOGLOBIN CONC (BEAKER) (test 31.1 GM/DL 32.2-35.5 jsoo=632) RED CELL DISTRIBUTION WIDTH (BEAKER) (test 15.0 % 11.7-14.4 woej=408) PLATELET COUNT (BEAKER) (test mmmu=483) 128 K/CU MM 150-450 MEAN PLATELET VOLUME (BEAKER) (test jvgv=976) 11.3 fL 9.4-12.3 NUCLEATED RED BLOOD CELLS (BEAKER) (test 0 /100 WBC 0-0 ggyp=374) NEUTROPHILS RELATIVE PERCENT (BEAKER) (test 78 % mljb=892) LYMPHOCYTES RELATIVE PERCENT (BEAKER) (test 11 % onjo=950) MONOCYTES RELATIVE PERCENT (BEAKER) (test 10 % npdz=279) EOSINOPHILS RELATIVE PERCENT (BEAKER) (test 1 % dpzg=629) BASOPHILS RELATIVE PERCENT (BEAKER) (test 0 % zyfk=021) NEUTROPHILS ABSOLUTE COUNT (BEAKER) (test 9.07 K/ L 1.56-6.13 zjyk=749) LYMPHOCYTES ABSOLUTE COUNT (BEAKER) (test 1.25 K/ L 1.18-3.74 jksy=655) MONOCYTES ABSOLUTE COUNT (BEAKER) (test 1.12 K/ L 0.24-0.36 xaxv=338) EOSINOPHILS ABSOLUTE COUNT (BEAKER) (test 0.12 K/ L 0.04-0.36 gznl=648) BASOPHILS ABSOLUTE COUNT (BEAKER) (test 0.05 K/ L 0.01-0.08 xmty=163) IMMATURE GRANULOCYTES-RELATIVE PERCENT (BEAKER) 1 % 0-1 (test osfw=5315) POCT-GLUCOSE [id number] 03:09:00 Test Item Value Reference Range Comments POC-GLUCOSE METER (BEAKER) 114 mg/dL 70-110 TESTED AT [address] (test wfri=0778) [place] [id number] POCT-GLUCOSE [id number] 03:09:00 Test Item Value Reference Range Comments POC-GLUCOSE METER (BEAKER) 122 mg/dL 70-110 TESTED AT [address] (test kzpm=2837) [place] [id number] BASIC METABOLIC [id number] 00:32:00 Test Item Value Reference Range Comments SODIUM (BEAKER) (test 144 meq/L 136-145 mqwc=883) POTASSIUM (BEAKER) (test 4.2 meq/L 3.5-5.1 zpkm=375) CHLORIDE (BEAKER) (test 105 meq/L 98-107 uxqq=981) CO2 (BEAKER) (test 28 meq/L 22-29 gflm=820) BLOOD UREA NITROGEN 30 mg/dL 7-21 (BEAKER) (test yitg=441) CREATININE (BEAKER) (test 1.56 mg/dL 0.57-1.25 reth=307) GLUCOSE RANDOM (BEAKER) 131 mg/dL 70-105 (test ddna=662) CALCIUM (BEAKER) (test 9.0 mg/dL 8.4-10.2 aeke=147) EGFR (BEAKER) (test 40 mL/min/1.73 sq m ESTIMATED GFR IS NOT zmyq=3957) ACCURATE CREATININE CLEARANCE IN PREDICTING GLOMERULAR FILTRATION RATE. ESTIMATED GFR IS NOT APPLICABLE FOR DIALYSIS PATIENTS. [id number] 00:31:00 Test Item Value Reference Range Comments PHOSPHORUS (BEAKER) (test ukqy=680) 3.4 mg/dL 2.3-4.7 POCT-GLUCOSE [id number] 00:10:00 Test Item Value Reference Range Comments POC-GLUCOSE METER (BEAKER) 140 mg/dL 70-110 TESTED AT [address] (test othh=3785) [place] [id number] POCT-GLUCOSE [id number] 00:08:00 Test Item Value Reference Range Comments POC-GLUCOSE METER (BEAKER) 121 mg/dL 70-110 TESTED AT [address] (test ndwm=9157) [facility] [address] POCT-GLUCOSE [id number] 00:08:00 Test Item Value Reference Range Comments POC-GLUCOSE METER (BEAKER) 112 mg/dL 70-110 TESTED AT [address] (test xrjt=5838) [facility] [address] POCT-GLUCOSE [id number] 00:08:00 Test Item Value Reference Range Comments POC-GLUCOSE METER (BEAKER) 84 mg/dL 70-110 TESTED AT [address] (test ocge=4855) [place] [id number] BASIC METABOLIC [id number] 20:36:00 Test Item Value Reference Range Comments SODIUM (BEAKER) (test 145 meq/L 136-145 bssj=518) POTASSIUM (BEAKER) (test 3.6 meq/L 3.5-5.1 tfsu=328) CHLORIDE (BEAKER) (test 106 meq/L 98-107 rwxc=344) CO2 (BEAKER) (test 31 meq/L 22-29 rlxn=463) BLOOD UREA NITROGEN 32 mg/dL 7-21 (BEAKER) (test eber=465) CREATININE (BEAKER) (test 1.56 mg/dL 0.57-1.25 youb=601) GLUCOSE RANDOM (BEAKER) 85 mg/dL 70-105 (test ukws=418) CALCIUM (BEAKER) (test 9.0 mg/dL 8.4-10.2 yxqj=964) EGFR (BEAKER) (test 40 mL/min/1.73 sq m ESTIMATED GFR IS NOT jpjx=4647) ACCURATE CREATININE CLEARANCE IN PREDICTING GLOMERULAR FILTRATION RATE. ESTIMATED GFR IS NOT APPLICABLE FOR DIALYSIS PATIENTS. [id number] 20:36:00 Test Item Value Reference Range Comments MAGNESIUM (BEAKER) (test yrif=193) 2.4 mg/dL 1.6-2.6 [id number] 18:26:00 Test Item Value Reference Range Comments PHOSPHORUS (BEAKER) (test oqij=619) 2.4 mg/dL 2.3-4.7 BASIC METABOLIC [id number] 18:26:00 Test Item Value Reference Range Comments SODIUM (BEAKER) (test 144 meq/L 136-145 gwnm=216) POTASSIUM (BEAKER) (test 3.9 meq/L 3.5-5.1 ontw=552) CHLORIDE (BEAKER) (test 106 meq/L 98-107 blnk=675) CO2 (BEAKER) (test 30 meq/L 22-29 hkqv=845) BLOOD UREA NITROGEN 32 mg/dL 7-21 (BEAKER) (test khkr=425) CREATININE (BEAKER) (test 1.67 mg/dL 0.57-1.25 vynv=894) GLUCOSE RANDOM (BEAKER) 141 mg/dL 70-105 (test eqou=415) CALCIUM (BEAKER) (test 9.1 mg/dL 8.4-10.2 hpjc=268) EGFR (BEAKER) (test 37 mL/min/1.73 sq m ESTIMATED GFR IS NOT hffm=6337) ACCURATE CREATININE CLEARANCE IN PREDICTING GLOMERULAR FILTRATION RATE. ESTIMATED GFR IS NOT APPLICABLE FOR DIALYSIS PATIENTS. LACTIC ACID, ARTERIAL, WHOLE [id number] 18:22:00 Test Item Value Reference Range Comments LACTATE BLOOD ARTERIAL (2) (BEAKER) (test 1.0 mmol/L 0.5-2.2 autz=8100) Effective 08/06/2015: Units/Reference Range ChangeNew: 0.5-2.2 mmol/L Previous: 5 -20 mg/dLPOCT-GLUCOSE [id number] 17:56:00 Test Item Value Reference Range Comments POC-GLUCOSE METER (BEAKER) 138 mg/dL 70-110 TESTED AT [facility] [address] [facility] (test pzyv=2575) [facility] [address] [id number] 16:19:00 Test Item Value Reference Range Comments POTASSIUM (BEAKER) (test ulbh=500) 3.8 meq/L 3.5-5.1 PRN - repeat potassium levels every 1 hour until glucose level is less than 450 mg/[id number] 16:06:00 Test Item Value Reference Range Comments PARTIAL THROMBOPLASTIN TIME (BEAKER) (test 71.3 seconds 22.5-36.0 qldx=397) OXYGEN SATURATION, [id number] 15:58:00 Test Item Value Reference Range Comments O2 SATURATION (MEASURED) (BEAKER) (test wggo=3514) 58.6 % calibrationPOCT-GLUCOSE [id number] 15:51:00 Test Item Value Reference Range Comments POC-GLUCOSE METER (BEAKER) 147 mg/dL 70-110 TESTED AT [facility] [address] [facility] (test xkfv=5642) [facility] [address] RAD, CHEST, 1 VIEW, NON [id number] 14:57:00Reason for exam:->s/p CVC placement Should this be performed at the bedside?->YesFINAL REPORT TECHNIQUE: Frontal chest radiograph dated 07/22/2017. CLINICAL HISTORY: CVC placement COMPARISON STUDY: Chest radiograph performed earlier the same day. IMPRESSION:There has been interval placement of a right-sided [place]- Jagdeep catheter with the tip in the main pulmonary artery. Impella device is unchanged in appearance. There is left lung base atelectasis. No pleural effusion or pneumothorax. Cardiomediastinal silhouette is normal in size. No pulmonary edema. Bonesare osteopenic. No fracture. Signed: Dawson Noeleport Verified Date/Time: 07/22/2017 14:57:48 Reading Location: [facility] Radiology Reading Room PROTEIN ELECTROPHORESIS, [id number] 14:45:00 Test Item Value Reference Range Comments ALBUMIN FRACTION (BEAKER) 3.0 g/dL 3.5-5.5 (test seuv=526) ALPHA 1 FRACTION (BEAKER) 0.4 g/dL 0.2-0.4 (test ofyk=509) ALPHA 2 FRACTION (BEAKER) 0.5 g/dL 0.5-0.9 (test ylbz=033) BETA FRACTION (BEAKER) (test 1.0 g/dL 0.6-1.1 xxqg=387) GAMMA GLOBULIN FRACTION 1.2 g/dL 0.7-1.7 (BEAKER) (test mhxw=948) INTERPRETATION-119 (BEAKER) Albumin decreased. Alpha (test llyy=1450) globulin percentages increased. This suggests an acute phase response. [id number] (BEAKER) Анна Encarnacion MD (electronic (test gbyj=4792) signature) PROTEIN TOTAL SERUM, SPEP 6.1 gm/dL 6.0-8.3 (BEAKER) (test jpzk=4521) POCT-GLUCOSE [id number] 14:34:00 Test Item Value Reference Range Comments POC-GLUCOSE METER (BEAKER) 137 mg/dL 70-110 TESTED AT [facility] [address] [facility] (test lvnp=0956) [facility] [address] ANTI-NUCLEAR ANTIBODY (ROSLYN)2017-07-22 13:24:00 Test Item Value Reference Range Comments ANTI-NUCLEAR ANTIBODY (ROSLYN) (BEAKER) (test Positive Negative ecfn=925) ROSLYN TITER AND [id number] 13:24:00 Test Item Value Reference Range Comments ROSLYN TITER (BEAKER) (test hajb=2573) :640 ROSLYN PATTERN (BEAKER) (test oere=8347) Homogeneous [id number] 12:50:00 Test Item Value Reference Range Comments PHOSPHORUS (BEAKER) (test tkvf=223) 2.5 mg/dL 2.3-4.7 BASIC METABOLIC [id number] 12:50:00 Test Item Value Reference Range Comments SODIUM (BEAKER) (test 145 meq/L 136-145 oehe=939) POTASSIUM (BEAKER) (test 3.6 meq/L 3.5-5.1 idoa=564) CHLORIDE (BEAKER) (test 107 meq/L 98-107 myqp=785) CO2 (BEAKER) (test 30 meq/L 22-29 bhmq=063) BLOOD UREA NITROGEN 37 mg/dL 7-21 (BEAKER) (test riwj=967) CREATININE (BEAKER) (test 1.69 mg/dL 0.57-1.25 qwhs=555) GLUCOSE RANDOM (BEAKER) 154 mg/dL 70-105 (test axso=787) CALCIUM (BEAKER) (test 8.9 mg/dL 8.4-10.2 tvyi=051) EGFR (BEAKER) (test 36 mL/min/1.73 sq m ESTIMATED GFR IS NOT tepd=5193) ACCURATE CREATININE CLEARANCE IN PREDICTING GLOMERULAR FILTRATION RATE. ESTIMATED GFR IS NOT APPLICABLE FOR DIALYSIS PATIENTS. BLOOD GAS, [id number] 12:36:00 Test Item Value Reference Range Comments PH ARTERIAL (BEAKER) (test koky=356) 7.48 7.35-7.45 PCO2 ARTERIAL (BEAKER) (test xkyn=473) 44 mmHg 35-45 PO2 ARTERIAL (BEAKER) (test bdxn=193) 156 mmHg 80-90 O2 SATURATION ARTERIAL (BEAKER) (test ctoj=174) 99.1 % 96.0-97.0 HCO3 ARTERIAL (BEAKER) (test tjgy=625) 32 mmol/L 21-29 BASE EXCESS ARTERIAL (BEAKER) (test qrzg=517) 7.4 mmol/L -2.0-3.0 PATIENT TEMPERATURE (BEAKER) (test ioka=2574) 37.4 C FIO2 (BEAKER) (test qeyq=2257) 80.0 % POCT-GLUCOSE [id number] 12:26:00 Test Item Value Reference Range Comments POC-GLUCOSE METER (BEAKER) 147 mg/dL 70-110 TESTED AT [address] (test oynl=9260) [place] [address] URINE [id number] 11:56:00 Test Item Value Reference Range Comments CULTURE (BEAKER) (test ovrm=3705) No growth POCT-GLUCOSE [id number] 11:11:00 Test Item Value Reference Range Comments POC-GLUCOSE METER (BEAKER) 172 mg/dL 70-110 TESTED AT [address] (test rtbm=0085) [place] [address] POCT-GLUCOSE [id number] 09:54:00 Test Item Value Reference Range Comments POC-GLUCOSE METER (BEAKER) 196 mg/dL 70-110 TESTED AT [address] (test mgna=0703) [place] [id number] LACTIC ACID, ARTERIAL, WHOLE [id number] 09:07:00 Test Item Value Reference Range Comments LACTATE BLOOD ARTERIAL (2) (BEAKER) (test 0.7 mmol/L 0.5-2.2 btgf=3607) Effective 08/06/2015: Units/Reference Range ChangeNew: 0.5-2.2 mmol/L Previous: 5 -20 mg/[id number] 09:06:00 Test Item Value Reference Range Comments MAGNESIUM (BEAKER) (test doqx=709) 2.2 mg/dL 1.6-2.6 POCT-GLUCOSE [id number] 08:39:00 Test Item Value Reference Range Comments POC-GLUCOSE METER (BEAKER) 188 mg/dL 70-110 TESTED AT [address] (test ztsx=4162) [place] [address] POCT-GLUCOSE [id number] 08:37:00 Test Item Value Reference Range Comments POC-GLUCOSE METER (BEAKER) 195 mg/dL 70-110 TESTED AT [address] (test sher=2831) [facility] [address] BLOOD GAS, [id number] 06:46:00 Test Item Value Reference Range Comments PH ARTERIAL (BEAKER) (test brga=171) 7.47 7.35-7.45 PCO2 ARTERIAL (BEAKER) (test idyu=664) 44 mmHg 35-45 PO2 ARTERIAL (BEAKER) (test fhob=978) 57 mmHg 80-90 O2 SATURATION ARTERIAL (BEAKER) (test fsuu=091) 91.1 % 96.0-97.0 HCO3 ARTERIAL (BEAKER) (test ftfk=061) 32 mmol/L 21-29 BASE EXCESS ARTERIAL (BEAKER) (test eqba=547) 7.1 mmol/L -2.0-3.0 PATIENT TEMPERATURE (BEAKER) (test absd=3820) 37.0 C [id number] 06:14:00 Test Item Value Reference Range Comments RPR SCREEN (BEAKER) (test uims=010) Nonreactive Nonreactive CALCIUM, [id number] 05:52:00 Test Item Value Reference Range Comments CALCIUM IONIZED (BEAKER) (test fzmo=654) 1.13 mmol/L 1.12-1.27 PH, BLOOD (BEAKER) (test vfyt=5563) 7.46 [id number] 05:42:00 Test Item Value Reference Range Comments PHOSPHORUS (BEAKER) (test imhw=038) 2.2 mg/dL 2.3-4.7 [id number] 05:42:00 Test Item Value Reference Range Comments MAGNESIUM (BEAKER) (test vjrg=568) 2.1 mg/dL 1.6-2.6 HEPATIC FUNCTION [id number] 05:42:00 Test Item Value Reference Range Comments TOTAL PROTEIN (BEAKER) (test wgnq=351) 6.2 gm/dL 6.0-8.3 ALBUMIN (BEAKER) (test uezs=7327) 3.1 g/dL 3.5-5.0 BILIRUBIN TOTAL (BEAKER) (test djxg=534) 1.4 mg/dL 0.2-1.2 BILIRUBIN DIRECT (BEAKER) (test augk=860) 0.7 mg/dL 0.1-0.5 ALKALINE PHOSPHATASE (BEAKER) (test yomz=125) 49 U/L 40-150 AST (SGOT) (BEAKER) (test udyi=988) 74 U/L 5-34 ALT (SGPT) (BEAKER) (test kvyb=995) 37 U/L 6-55 LACTATE DEHYDROGENASE (LDH)2017-07-22 05:42:00 Test Item Value Reference Range Comments LACTATE DEHYDROGENASE (BEAKER) (test efao=735) 1339 U/L 125-220 [id number] 05:40:00 Test Item Value Reference Range Comments PHOSPHORUS (BEAKER) (test tqku=137) 2.2 mg/dL 2.3-4.7 BASIC METABOLIC [id number] 05:40:00 Test Item Value Reference Range Comments SODIUM (BEAKER) (test 144 meq/L 136-145 uale=936) POTASSIUM (BEAKER) (test 4.0 meq/L 3.5-5.1 iagb=895) CHLORIDE (BEAKER) (test 107 meq/L 98-107 yqgk=920) CO2 (BEAKER) (test 28 meq/L 22-29 ethj=474) BLOOD UREA NITROGEN 36 mg/dL 7-21 (BEAKER) (test nsmj=929) CREATININE (BEAKER) (test 1.79 mg/dL 0.57-1.25 nezn=970) GLUCOSE RANDOM (BEAKER) 183 mg/dL 70-105 (test tgpn=343) CALCIUM (BEAKER) (test 8.9 mg/dL 8.4-10.2 aqtb=217) EGFR (BEAKER) (test 34 mL/min/1.73 sq m ESTIMATED GFR IS NOT rnwe=3813) ACCURATE CREATININE CLEARANCE IN PREDICTING GLOMERULAR FILTRATION RATE. ESTIMATED GFR IS NOT APPLICABLE FOR DIALYSIS PATIENTS. OXYGEN SATURATION, [id number] 05:29:00 Test Item Value Reference Range Comments O2 SATURATION (MEASURED) (BEAKER) (test gnmo=9212) 54.7 % [id number] 05:29:00 Test Item Value Reference Range Comments PARTIAL THROMBOPLASTIN TIME (BEAKER) (test 70.7 seconds 22.5-36.0 jqch=959) CBC W/PLT COUNT & AUTO [id number] 05:24:00 Test Item Value Reference Range Comments WHITE BLOOD CELL COUNT (BEAKER) (test sbmj=409) 13.0 K/ L 3.5-10.5 RED BLOOD CELL COUNT (BEAKER) (test lsec=033) 3.04 M/ L 3.93-5.22 HEMOGLOBIN (BEAKER) (test drgs=176) 9.0 GM/DL 11.2-15.7 HEMATOCRIT (BEAKER) (test xoxx=170) 29.0 % 34.1-44.9 MEAN CORPUSCULAR VOLUME (BEAKER) (test mnod=329) 95.4 fL 79.4-94.8 MEAN CORPUSCULAR HEMOGLOBIN (BEAKER) (test 29.6 pg 25.6-32.2 kjrt=337) MEAN CORPUSCULAR HEMOGLOBIN CONC (BEAKER) (test 31.0 GM/DL 32.2-35.5 psku=351) RED CELL DISTRIBUTION WIDTH (BEAKER) (test 15.5 % 11.7-14.4 zogi=169) PLATELET COUNT (BEAKER) (test mtpx=924) 132 K/CU MM 150-450 MEAN PLATELET VOLUME (BEAKER) (test yqsw=484) 11.4 fL 9.4-12.3 NUCLEATED RED BLOOD CELLS (BEAKER) (test 0 /100 WBC 0-0 aypy=523) NEUTROPHILS RELATIVE PERCENT (BEAKER) (test 80 % ffem=103) LYMPHOCYTES RELATIVE PERCENT (BEAKER) (test 10 % sxyw=545) MONOCYTES RELATIVE PERCENT (BEAKER) (test 9 % daqi=894) EOSINOPHILS RELATIVE PERCENT (BEAKER) (test 0 % qfcs=995) BASOPHILS RELATIVE PERCENT (BEAKER) (test 0 % odmr=458) NEUTROPHILS ABSOLUTE COUNT (BEAKER) (test 10.44 K/ L 1.56-6.13 solu=964) LYMPHOCYTES ABSOLUTE COUNT (BEAKER) (test 1.29 K/ L 1.18-3.74 jkfl=080) MONOCYTES ABSOLUTE COUNT (BEAKER) (test 1.12 K/ L 0.24-0.36 vttv=132) EOSINOPHILS ABSOLUTE COUNT (BEAKER) (test 0.01 K/ L 0.04-0.36 rexx=548) BASOPHILS ABSOLUTE COUNT (BEAKER) (test 0.04 K/ L 0.01-0.08 plxa=847) IMMATURE GRANULOCYTES-RELATIVE PERCENT (BEAKER) 1 % 0-1 (test yupm=1864) RAD, CHEST, 1 VIEW, NON [id number] 04:45:00Reason for exam:->respiratory insufficiencyFINAL REPORT CLINICAL INDICATION: Respiratory insufficiency Comparison: 07/21/2017 The cardiomediastinal contours are stable. The left hemidiaphragm is slightly elevated. Centralpulmonary vascular congestion and bilateral parenchymal opacities are unchanged. There is no pneumothorax. A femoral Impella device remains in place. Signed: Adelso Sorenseneport Verified Date/Time:07/22/2017 04:45:12 Reading Location: [address] Reading Room POCT-GLUCOSE [id number] 03:01:00 Test Item Value Reference Range Comments POC-GLUCOSE METER (BEAKER) 115 mg/dL 70-110 TESTED AT [address] (test rykq=8250) [facility] [address] POCT-GLUCOSE [id number] 00:14:00 Test Item Value Reference Range Comments POC-GLUCOSE METER (BEAKER) 137 mg/dL 70-110 TESTED AT [address] (test vsih=2929) [facility] [address] [id number] 00:09:00 Test Item Value Reference Range Comments POTASSIUM (BEAKER) (test rgwq=342) 3.8 meq/L 3.5-5.1 PRN - repeat glucose levels every 1 hour or as specified by insulin titration orders until glucose level is less than 450 mg/dLCheck Serum Potassium level 2 hours after oral potassium replacement completed or 30 min after intravenous potassium replacement.[id number] 00:09:00 Test Item Value Reference Range Comments MAGNESIUM (BEAKER) (test yvoo=167) 2.5 mg/dL 1.6-2.6 PRN - repeat glucose levels every 1 hour or as specified by insulin titration orders until glucose level is less than 450 mg/dLCheck Serum Potassium level 2 hours after oral potassium replacement completed or 30 min after intravenous potassium replacement.[id number] 00:09:00 Test Item Value Reference Range Comments PHOSPHORUS (BEAKER) (test mlzp=496) 1.9 mg/dL 2.3-4.7 PRN - repeat glucose levels every 1 hour or as specified by insulin titration orders until glucose level is less than 450 mg/dLCheck Serum Potassium level 2 hours after oral potassium replacement completed or 30 min after intravenous potassium replacement.[id number] 00:09:00 Test Item Value Reference Range Comments GLUCOSE RANDOM (BEAKER) (test gaic=233) 155 mg/dL 70-105 PRN - repeat glucose levels every 1 hour or as specified by insulin titration orders until glucose level is less than 450 mg/dLCheck Serum Potassium level 2 hours after oral potassium replacement completed or 30 min after intravenous potassium replacement.BASIC METABOLIC [id number] 00:09:00 Test Item Value Reference Range Comments SODIUM (BEAKER) (test 142 meq/L 136-145 zyic=793) POTASSIUM (BEAKER) (test 3.8 meq/L 3.5-5.1 quft=816) CHLORIDE (BEAKER) (test 105 meq/L 98-107 muvj=029) CO2 (BEAKER) (test 30 meq/L 22-29 auss=937) BLOOD UREA NITROGEN 37 mg/dL 7-21 (BEAKER) (test woey=210) CREATININE (BEAKER) (test 1.80 mg/dL 0.57-1.25 fpwt=651) GLUCOSE RANDOM (BEAKER) 155 mg/dL 70-105 (test hvco=090) CALCIUM (BEAKER) (test 8.8 mg/dL 8.4-10.2 tzit=441) EGFR (BEAKER) (test 34 mL/min/1.73 sq m ESTIMATED GFR IS NOT qgwv=4881) ACCURATE CREATININE CLEARANCE IN PREDICTING GLOMERULAR FILTRATION RATE. ESTIMATED GFR IS NOT APPLICABLE FOR DIALYSIS PATIENTS. PRN - repeat glucose levels every 1 hour or as specified by insulin titration orders until glucose level is less than 450 mg/dLCheck Serum Potassium level 2 hours after oral potassium replacement completed or 30 min after intravenous potassium replacement.[id number] 00:06:00 Test Item Value Reference Range Comments PARTIAL THROMBOPLASTIN TIME (BEAKER) (test 62.0 seconds 22.5-36.0 qcqj=075) BLOOD GAS, [id number] 20:39:00 Test Item Value Reference Range Comments PH ARTERIAL (BEAKER) (test rbys=597) 7.45 7.35-7.45 PCO2 ARTERIAL (BEAKER) (test bvqu=057) 46 mmHg 35-45 PO2 ARTERIAL (BEAKER) (test waan=280) 64 mmHg 80-90 O2 SATURATION ARTERIAL (BEAKER) (test ptso=120) 92.0 % 96.0-97.0 HCO3 ARTERIAL (BEAKER) (test umlk=599) 31 mmol/L 21-29 BASE EXCESS ARTERIAL (BEAKER) (test ggmq=861) 6.7 mmol/L -2.0-3.0 PATIENT TEMPERATURE (BEAKER) (test gnoh=6848) 38.1 C FIO2 (BEAKER) (test jygp=0274) 80.0 % POTASSIUM-STAT [id number] 20:39:00 Test Item Value Reference Range Comments POTASSIUM (BEAKER) (test orrp=298) 3.4 meq/L 3.6-5.5 [id number] 20:16:00 Test Item Value Reference Range Comments FERRITIN (BEAKER) (test nujf=422) 651 ng/mL 5-275 POCT-GLUCOSE [id number] 20:10:00 Test Item Value Reference Range Comments POC-GLUCOSE METER (BEAKER) 180 mg/dL 70-110 TESTED AT [address] (test qvjr=4751) [place] [id number] POCT-GLUCOSE [id number] 20:10:00 Test Item Value Reference Range Comments POC-GLUCOSE METER (BEAKER) 197 mg/dL 70-110 TESTED AT [address] (test yxoe=2440) [facility] [address] [id number] 19:54:00 Test Item Value Reference Range Comments PARTIAL THROMBOPLASTIN TIME (BEAKER) (test 62.4 seconds 22.5-36.0 bgld=123) [id number] 19:53:00 Test Item Value Reference Range Comments MAGNESIUM (BEAKER) (test whzc=071) 2.2 mg/dL 1.6-2.6 HEPATITIS A ANTIBODY, [id number] 19:25:00 Test Item Value Reference Range Comments HEPATITIS A IGG ANTIBODY (BEAKER) (test khvi=5621) Reactive Nonreactive GLUCOSE-STAT [id number] 19:24:00 Test Item Value Reference Range Comments GLUCOSE RANDOM (BEAKER) (test ehcm=738) 174 mg/dL 70-110 HGB/HCT (H&H) - STAT [id number] 19:24:00 Test Item Value Reference Range Comments HEMOGLOBIN (BEAKER) (test gyat=722) 10.1 g/dL 12.0-15.0 HEMATOCRIT (BEAKER) (test yqcy=548) 30.0 % 36.0-45.0 POTASSIUM-STAT [id number] 19:24:00 Test Item Value Reference Range Comments POTASSIUM (BEAKER) (test jzez=627) 3.4 meq/L 3.6-5.5 HEPATITIS B CORE ANTIBODY, [id number] 19:21:00 Test Item Value Reference Range Comments HEPATITIS B CORE TOTAL ANTIBODY (BEAKER) (test Nonreactive Nonreactive ppsj=589) HEPATITIS PANEL, [id number] 19:21:00 Test Item Value Reference Range Comments HEPATITIS A IGM ANTIBODY (BEAKER) (test Nonreactive Nonreactive ktei=774) HEPATITIS B CORE IGM ANTIBODY (BEAKER) (test Nonreactive Nonreactive fiju=542) HEPATITIS C ANTIBODY (BEAKER) (test vxkk=748) Nonreactive Nonreactive HEPATITIS B SURFACE ANTIGEN (2) (BEAKER) (test Nonreactive Nonreactive upwz=2531) HIV-1 ANTIGEN WITH HIV-1/2 [id number] 19:21:00 Test Item Value Reference Range Comments HIV-1 ANTIGEN WITH HIV 1\T\2 ANTIBODY (2) Nonreactive Nonreactive (BEAKER) (test nqex=0661) BASIC METABOLIC [id number] 18:05:00 Test Item Value Reference Range Comments SODIUM (BEAKER) (test 141 meq/L 136-145 uavt=519) POTASSIUM (BEAKER) (test 4.0 meq/L 3.5-5.1 wmfw=263) CHLORIDE (BEAKER) (test 104 meq/L 98-107 coas=159) CO2 (BEAKER) (test 26 meq/L 22-29 dgva=806) BLOOD UREA NITROGEN 41 mg/dL 7-21 (BEAKER) (test hmnh=466) CREATININE (BEAKER) (test 2.07 mg/dL 0.57-1.25 jwol=895) GLUCOSE RANDOM (BEAKER) 242 mg/dL 70-105 (test qyiq=144) CALCIUM (BEAKER) (test 8.9 mg/dL 8.4-10.2 dcxr=495) EGFR (BEAKER) (test 29 mL/min/1.73 sq m ESTIMATED GFR IS NOT jdpv=8670) ACCURATE CREATININE CLEARANCE IN PREDICTING GLOMERULAR FILTRATION RATE. ESTIMATED GFR IS NOT APPLICABLE FOR DIALYSIS PATIENTS. Check Serum Potassium level 2 hours after oral potassium replacement completed or 30 min after intravenous potassium replacement.[id number] 18:02:00 Test Item Value Reference Range Comments POTASSIUM (BEAKER) (test juhj=734) 4.0 meq/L 3.5-5.1 Check Serum Potassium level 2 hours after oral potassium replacement completed or 30 min after intravenous potassium replacement.[id number] 18:02:00 Test Item Value Reference Range Comments MAGNESIUM (BEAKER) (test yyjp=596) 2.2 mg/dL 1.6-2.6 Check Serum Potassium level 2 hours after oral potassium replacement completed or 30 min after intravenous potassium replacement.[id number] 18:02:00 Test Item Value Reference Range Comments PHOSPHORUS (BEAKER) (test nfmw=737) 2.1 mg/dL 2.3-4.7 Check Serum Potassium level 2 hours after oral potassium replacement completed or 30 min after intravenous potassium replacement.POCT-GLUCOSE [id number] 17:31:00 Test Item Value Reference Range Comments POC-GLUCOSE METER (BEAKER) 253 mg/dL 70-110 TESTED AT [facility] [address] [facility] (test xruo=3463) [facility] [address] VITAMIN D, [id number] 17:31:00 Test Item Value Reference Range Comments VITAMIN D 25-OH (BEAKER) (test svic=9206) 5.8 ng/mL 6.6-49.9 Effective 01/12/2017: Reference Range ChangeNew: 6.6-49.9 ng/mL Previous: 13.0 -47.8 ng/mLRecommended Vitamin D Target Range: 30.0-40.0 ng/mLPOCT-GLUCOSE [id number] 17:31:00 Test Item Value Reference Range Comments POC-GLUCOSE METER (BEAKER) 269 mg/dL 70-110 TESTED AT [facility] [address] [facility] (test jzux=6391) [facility] [address] [id number] 17:09:00 Test Item Value Reference Range Comments TRANSFERRIN (BEAKER) (test dodt=598) 166 mg/dL 174-382 [id number] 17:09:00 Test Item Value Reference Range Comments PREALBUMIN (BEAKER) (test xngp=871) 14 mg/dL 14-45 IRON, [id number] 17:09:00 Test Item Value Reference Range Comments IRON (BEAKER) (test zusv=925) 57 ug/dL 40-160 TROPONIN [id number] 16:59:00 Test Item Value Reference Range Comments TROPONIN I (BEAKER) (test kwhg=537) 45.70 ng/mL 0.00-0.03 Troponin I (TnI) levels [...] failure, acidosis, acute neurological disease, and persistent tachyarrhythmia.[id number] 16:49:00 Test Item Value Reference Range Comments CREATININE (BEAKER) (test 2.17 mg/dL 0.57-1.25 hjyh=048) EGFR (BEAKER) (test 27 mL/min/1.73 sq m ESTIMATED GFR IS NOT lczw=0533) ACCURATE CREATININE CLEARANCE IN PREDICTING GLOMERULAR FILTRATION RATE. ESTIMATED GFR IS NOT APPLICABLE FOR DIALYSIS PATIENTS. URIC [id number] 16:48:00 Test Item Value Reference Range Comments URIC ACID (BEAKER) (test kxlr=272) 8.2 mg/dL 2.6-7.2 LIPID [id number] 16:48:00 Test Item Value Reference Range Comments TRIGLYCERIDES (BEAKER) (test sxzr=219) 122 mg/dL CHOLESTEROL (BEAKER) (test hzxo=512) 204 mg/dL HDL CHOLESTEROL (BEAKER) (test gske=357) 85 mg/dL LDL CHOLESTEROL CALCULATED (BEAKER) (test 95 mg/dL wqus=613) Triglyceride Reference Range: Low Risk <150 Borderline 150- 199 High Risk 200-499 Very High Risk >=500Cholesterol Reference Range: Low Risk <200 Borderline 200-239 High Risk > 240HDL Cholesterol Reference Range: Low Risk >=60 High Risk <40LDL Cholesterol Reference Range: Optimal <100 Near Optimal 100-129 Borderline 130-159 High 160-189 Very High >=[id number] 16:48:00 Test Item Value Reference Range Comments AMYLASE (BEAKER) (test opch=715) 228 U/L 25-125 GAMMA GLUTAMYL TRANSFERASE (GGT)2017-07-21 16:48:00 Test Item Value Reference Range Comments GAMMA GLUTAMYL TRANSFERASE (BEAKER) (test msig=527) 52 U/L 9-64 RETICULOCYTE [id number] 16:39:00 Test Item Value Reference Range Comments RETICULOCYTE COUNT PCT (BEAKER) (test hgpp=119) 3.8 % 0.5-1.7 TROPONIN [id number] 13:49:00 Test Item Value Reference Range Comments TROPONIN I (BEAKER) (test xfhk=277) 43.19 ng/mL 0.00-0.03 Troponin I (TnI) levels [...] acute neurological disease, and persistent tachyarrhythmia.BASIC METABOLIC [id number] 12:22:00 Test Item Value Reference Range Comments SODIUM (BEAKER) (test 141 meq/L 136-145 tzji=077) POTASSIUM (BEAKER) (test 3.9 meq/L 3.5-5.1 nrzg=146) CHLORIDE (BEAKER) (test 102 meq/L 98-107 yqyc=717) CO2 (BEAKER) (test 28 meq/L 22-29 imlp=993) BLOOD UREA NITROGEN 40 mg/dL 7-21 (BEAKER) (test fiep=457) CREATININE (BEAKER) (test 2.20 mg/dL 0.57-1.25 pxns=737) GLUCOSE RANDOM (BEAKER) 238 mg/dL 70-105 (test tgna=495) CALCIUM (BEAKER) (test 8.9 mg/dL 8.4-10.2 ejni=946) EGFR (BEAKER) (test 27 mL/min/1.73 sq m ESTIMATED GFR IS NOT jkcj=9265) ACCURATE CREATININE CLEARANCE IN PREDICTING GLOMERULAR FILTRATION RATE. ESTIMATED GFR IS NOT APPLICABLE FOR DIALYSIS PATIENTS. [id number] 12:17:00 Test Item Value Reference Range Comments POTASSIUM (BEAKER) (test atgl=463) 3.9 meq/L 3.5-5.1 [id number] 12:17:00 Test Item Value Reference Range Comments MAGNESIUM (BEAKER) (test prxa=469) 2.4 mg/dL 1.6-2.6 [id number] 12:17:00 Test Item Value Reference Range Comments PHOSPHORUS (BEAKER) (test ikkf=452) 3.7 mg/dL 2.3-4.7 [id number] 12:17:00 Test Item Value Reference Range Comments GLUCOSE RANDOM (BEAKER) (test gxfa=615) 238 mg/dL 70-105 [id number] 12:04:00 Test Item Value Reference Range Comments PARTIAL THROMBOPLASTIN TIME (BEAKER) (test 59.3 seconds 22.5-36.0 gkwr=116) SPUTUM CULTURE + GRAM [id number] 11:47:00 Test Item Value Reference Range Comments CULTURE (BEAKER) (test <1+ Normal respiratory pascual lrwg=0715) present GRAM STAIN RESULT (BEAKER) 1+ WBCs (test vett=1724) GRAM STAIN RESULT (BEAKER) 0-5 epithelial cells (test sngk=32080) GRAM STAIN RESULT (BEAKER) No organisms seen (test ihui=95164) HEMOGLOBIN AND [id number] 11:26:00 Test Item Value Reference Range Comments HEMOGLOBIN (BEAKER) (test uouo=022) 7.9 GM/DL 11.2-15.7 HEMATOCRIT (BEAKER) (test tcah=466) 26.5 % 34.1-44.9 BLOOD GAS, [id number] 10:43:00 Test Item Value Reference Range Comments PH ARTERIAL (BEAKER) (test fxes=687) 7.42 7.35-7.45 PCO2 ARTERIAL (BEAKER) (test eaev=516) 44 mmHg 35-45 PO2 ARTERIAL (BEAKER) (test bspd=004) 51 mmHg 80-90 O2 SATURATION ARTERIAL (BEAKER) (test kyle=749) 88.2 % 96.0-97.0 HCO3 ARTERIAL (BEAKER) (test ufqe=952) 28 mmol/L 21-29 BASE EXCESS ARTERIAL (BEAKER) (test ghkm=045) 3.2 mmol/L -2.0-3.0 PATIENT TEMPERATURE (BEAKER) (test xddy=5999) 36.0 C FIO2 (BEAKER) (test eitd=0863) 80.0 % URINE [id number] 09:44:00 Test Item Value Reference Range Comments CULTURE (BEAKER) (test ogjr=0824) No growth BASIC METABOLIC [id number] 06:28:00 Test Item Value Reference Range Comments SODIUM (BEAKER) (test 141 meq/L 136-145 lxia=852) POTASSIUM (BEAKER) (test 4.1 meq/L 3.5-5.1 muag=036) CHLORIDE (BEAKER) (test 101 meq/L 98-107 ieit=867) CO2 (BEAKER) (test 29 meq/L 22-29 vhfk=820) BLOOD UREA NITROGEN 40 mg/dL 7-21 (BEAKER) (test znvl=421) CREATININE (BEAKER) (test 2.46 mg/dL 0.57-1.25 aciy=973) GLUCOSE RANDOM (BEAKER) 236 mg/dL 70-105 (test hpxo=643) CALCIUM (BEAKER) (test 8.6 mg/dL 8.4-10.2 neuh=547) EGFR (BEAKER) (test 24 mL/min/1.73 sq m ESTIMATED GFR IS NOT qcwh=7744) ACCURATE CREATININE CLEARANCE IN PREDICTING GLOMERULAR FILTRATION RATE. ESTIMATED GFR IS NOT APPLICABLE FOR DIALYSIS PATIENTS. [id number] 06:26:00 Test Item Value Reference Range Comments PHOSPHORUS (BEAKER) (test kwsj=734) 4.6 mg/dL 2.3-4.7 POCT-GLUCOSE [id number] 06:05:00 Test Item Value Reference Range Comments POC-GLUCOSE METER (BEAKER) 278 mg/dL 70-110 TESTED AT [address] (test nefx=1293) [facility] [address] POCT-GLUCOSE [id number] 06:05:00 Test Item Value Reference Range Comments POC-GLUCOSE METER (BEAKER) 231 mg/dL 70-110 TESTED AT [address] (test iedp=4895) [place] [id number] POCT-GLUCOSE [id number] 06:05:00 Test Item Value Reference Range Comments POC-GLUCOSE METER (BEAKER) 190 mg/dL 70-110 TESTED AT [address] (test wnox=0642) [place] [address] [id number] 05:56:00 Test Item Value Reference Range Comments PARTIAL THROMBOPLASTIN TIME (BEAKER) (test 72.5 seconds 22.5-36.0 kpwb=004) RAD, CHEST, 1 VIEW, NON [id number] 04:38:00Reason for exam:->respiratory insufficiencyFINAL REPORT CLINICAL INDICATION: Respiratory insufficiency Comparison: 07/20/2017 The cardiomediastinal contours are stable. Central pulmonary vascular prominence and bilateral parenchymal opacities are similar within variation of acquisition technique. There is no pneumothorax. A femoral Impella device is stable in position. Signed: Adelso Sorensen MDReport Verified Date/Time:07/21/2017 04:38:32 Reading Location: [address] Reading Room BASIC METABOLIC [id number] 04:06:00 Test Item Value Reference Range Comments SODIUM (BEAKER) (test 142 meq/L 136-145 zqkb=092) POTASSIUM (BEAKER) (test 3.9 meq/L 3.5-5.1 djol=156) CHLORIDE (BEAKER) (test 102 meq/L 98-107 hddp=425) CO2 (BEAKER) (test 31 meq/L 22-29 yvys=871) BLOOD UREA NITROGEN 40 mg/dL 7-21 (BEAKER) (test mpse=190) CREATININE (BEAKER) (test 2.37 mg/dL 0.57-1.25 dpjx=413) GLUCOSE RANDOM (BEAKER) 206 mg/dL 70-105 (test onha=907) CALCIUM (BEAKER) (test 8.5 mg/dL 8.4-10.2 yjcn=380) EGFR (BEAKER) (test 25 mL/min/1.73 sq m ESTIMATED GFR IS NOT xxyr=7389) ACCURATE CREATININE CLEARANCE IN PREDICTING GLOMERULAR FILTRATION RATE. ESTIMATED GFR IS NOT APPLICABLE FOR DIALYSIS PATIENTS. BLOOD GAS, [id number] 03:53:00 Test Item Value Reference Range Comments PH ARTERIAL (BEAKER) (test ekwx=712) 7.36 7.35-7.45 PCO2 ARTERIAL (BEAKER) (test ekpf=407) 55 mmHg 35-45 PO2 ARTERIAL (BEAKER) (test mequ=781) 94 mmHg 80-90 O2 SATURATION ARTERIAL (BEAKER) (test dfhs=675) 96.0 % 96.0-97.0 HCO3 ARTERIAL (BEAKER) (test xgtg=700) 30 mmol/L 21-29 BASE EXCESS ARTERIAL (BEAKER) (test kbea=633) 4.2 mmol/L -2.0-3.0 PATIENT TEMPERATURE (BEAKER) (test sdfc=4496) 38.8 C FIO2 (BEAKER) (test lvfi=4018) 80.0 % CALCIUM, [id number] 03:51:00 Test Item Value Reference Range Comments CALCIUM IONIZED (BEAKER) (test uqol=907) 1.07 mmol/L 1.12-1.27 PH, BLOOD (BEAKER) (test qadz=3464) 7.35 OXYGEN SATURATION, [id number] 03:50:00 Test Item Value Reference Range Comments O2 SATURATION (MEASURED) (BEAKER) (test csgi=8315) 72.6 % [id number] 03:47:00 Test Item Value Reference Range Comments PHOSPHORUS (BEAKER) (test emny=705) 4.5 mg/dL 2.3-4.7 [id number] 03:47:00 Test Item Value Reference Range Comments MAGNESIUM (BEAKER) (test ndtm=723) 2.1 mg/dL 1.6-2.6 HEPATIC FUNCTION [id number] 03:47:00 Test Item Value Reference Range Comments TOTAL PROTEIN (BEAKER) (test nvbs=158) 6.1 gm/dL 6.0-8.3 ALBUMIN (BEAKER) (test xdro=4002) 3.1 g/dL 3.5-5.0 BILIRUBIN TOTAL (BEAKER) (test daor=612) 1.4 mg/dL 0.2-1.2 BILIRUBIN DIRECT (BEAKER) (test bxhi=134) 0.6 mg/dL 0.1-0.5 ALKALINE PHOSPHATASE (BEAKER) (test dpgf=065) 45 U/L 40-150 AST (SGOT) (BEAKER) (test lssf=809) 94 U/L 5-34 ALT (SGPT) (BEAKER) (test rhyc=564) 48 U/L 6-55 LACTATE DEHYDROGENASE (LDH)2017-07-21 03:47:00 Test Item Value Reference Range Comments LACTATE DEHYDROGENASE (BEAKER) (test ijbd=129) 1470 U/L 125-220 CBC W/PLT COUNT & AUTO [id number] 03:41:00 Test Item Value Reference Range Comments WHITE BLOOD CELL COUNT (BEAKER) (test yqom=916) 14.1 K/ L 3.5-10.5 RED BLOOD CELL COUNT (BEAKER) (test iavn=576) 2.81 M/ L 3.93-5.22 HEMOGLOBIN (BEAKER) (test scmg=106) 8.6 GM/DL 11.2-15.7 HEMATOCRIT (BEAKER) (test vgze=386) 28.2 % 34.1-44.9 MEAN CORPUSCULAR VOLUME (BEAKER) (test xupm=414) 100.4 fL 79.4-94.8 MEAN CORPUSCULAR HEMOGLOBIN (BEAKER) (test 30.6 pg 25.6-32.2 ojnp=553) MEAN CORPUSCULAR HEMOGLOBIN CONC (BEAKER) (test 30.5 GM/DL 32.2-35.5 odbu=158) RED CELL DISTRIBUTION WIDTH (BEAKER) (test 13.1 % 11.7-14.4 kqwj=943) PLATELET COUNT (BEAKER) (test yynh=764) 140 K/CU MM 150-450 MEAN PLATELET VOLUME (BEAKER) (test lzht=950) 11.1 fL 9.4-12.3 NUCLEATED RED BLOOD CELLS (BEAKER) (test 0 /100 WBC 0-0 lgsl=307) NEUTROPHILS RELATIVE PERCENT (BEAKER) (test 86 % qmvd=005) LYMPHOCYTES RELATIVE PERCENT (BEAKER) (test 6 % rpvv=625) MONOCYTES RELATIVE PERCENT (BEAKER) (test 8 % omxz=685) EOSINOPHILS RELATIVE PERCENT (BEAKER) (test 0 % zaui=630) BASOPHILS RELATIVE PERCENT (BEAKER) (test 0 % rrta=817) NEUTROPHILS ABSOLUTE COUNT (BEAKER) (test 12.13 K/ L 1.56-6.13 evwc=432) LYMPHOCYTES ABSOLUTE COUNT (BEAKER) (test 0.81 K/ L 1.18-3.74 jiyb=777) MONOCYTES ABSOLUTE COUNT (BEAKER) (test 1.07 K/ L 0.24-0.36 zjol=064) EOSINOPHILS ABSOLUTE COUNT (BEAKER) (test 0.00 K/ L 0.04-0.36 enex=328) BASOPHILS ABSOLUTE COUNT (BEAKER) (test 0.02 K/ L 0.01-0.08 icjx=056) IMMATURE GRANULOCYTES-RELATIVE PERCENT (BEAKER) 1 % 0-1 (test dgkp=0534) LACTIC ACID, ARTERIAL, WHOLE [id number] 03:39:00 Test Item Value Reference Range Comments LACTATE BLOOD ARTERIAL (2) (BEAKER) (test 0.9 mmol/L 0.5-2.2 vhys=2224) Effective 08/06/2015: Units/Reference Range ChangeNew: 0.5-2.2 mmol/L Previous: 5 -20 mg/dLTROPONIN [id number] 00:12:00 Test Item Value Reference Range Comments TROPONIN I (BEAKER) (test tqsa=073) 60.74 ng/mL 0.00-0.03 Troponin I (TnI) levels [...] failure, acidosis, acute neurological disease, and persistent tachyarrhythmia.[id number] 23:42:00 Test Item Value Reference Range Comments PHOSPHORUS (BEAKER) (test dvvy=660) 4.9 mg/dL 2.3-4.7 BASIC METABOLIC [id number] 23:42:00 Test Item Value Reference Range Comments SODIUM (BEAKER) (test 141 meq/L 136-145 gqfb=713) POTASSIUM (BEAKER) (test 4.2 meq/L 3.5-5.1 gvzb=433) CHLORIDE (BEAKER) (test 102 meq/L 98-107 mfvw=892) CO2 (BEAKER) (test 29 meq/L 22-29 klkt=568) BLOOD UREA NITROGEN 40 mg/dL 7-21 (BEAKER) (test yibx=591) CREATININE (BEAKER) (test 2.36 mg/dL 0.57-1.25 oklp=822) GLUCOSE RANDOM (BEAKER) 200 mg/dL 70-105 (test ipge=465) CALCIUM (BEAKER) (test 8.4 mg/dL 8.4-10.2 vxqm=429) EGFR (BEAKER) (test 25 mL/min/1.73 sq m ESTIMATED GFR IS NOT afpg=8305) ACCURATE CREATININE CLEARANCE IN PREDICTING GLOMERULAR FILTRATION RATE. ESTIMATED GFR IS NOT APPLICABLE FOR DIALYSIS PATIENTS. [id number] 23:39:00 Test Item Value Reference Range Comments PARTIAL THROMBOPLASTIN TIME (BEAKER) (test 78.1 seconds 22.5-36.0 prkp=996) POCT-GLUCOSE [id number] 23:28:00 Test Item Value Reference Range Comments POC-GLUCOSE METER (BEAKER) 250 mg/dL 70-110 TESTED AT [facility] [address] [facility] (test xvub=6103) [facility] [address] POCT-GLUCOSE [id number] 22:19:00 Test Item Value Reference Range Comments POC-GLUCOSE METER (BEAKER) 202 mg/dL 70-110 TESTED AT [facility] [address] [facility] (test trfw=2036) [facility] [address] HEPATIC FUNCTION [id number] 21:45:00 Test Item Value Reference Range Comments TOTAL PROTEIN (BEAKER) (test sbch=346) 5.9 gm/dL 6.0-8.3 ALBUMIN (BEAKER) (test qqdh=3397) 3.1 g/dL 3.5-5.0 BILIRUBIN TOTAL (BEAKER) (test fnur=816) 1.0 mg/dL 0.2-1.2 BILIRUBIN DIRECT (BEAKER) (test vyim=889) 0.5 mg/dL 0.1-0.5 ALKALINE PHOSPHATASE (BEAKER) (test kngm=739) 46 U/L 40-150 AST (SGOT) (BEAKER) (test wisy=977) 95 U/L 5-34 ALT (SGPT) (BEAKER) (test dcbg=190) 47 U/L 6-55 BASIC METABOLIC [id number] 21:45:00 Test Item Value Reference Range Comments SODIUM (BEAKER) (test 141 meq/L 136-145 wggu=694) POTASSIUM (BEAKER) (test 4.0 meq/L 3.5-5.1 mbgz=193) CHLORIDE (BEAKER) (test 103 meq/L 98-107 iray=680) CO2 (BEAKER) (test 27 meq/L 22-29 gefp=420) BLOOD UREA NITROGEN 40 mg/dL 7-21 (BEAKER) (test lxur=753) CREATININE (BEAKER) (test 2.30 mg/dL 0.57-1.25 bumh=252) GLUCOSE RANDOM (BEAKER) 192 mg/dL 70-105 (test wytn=273) CALCIUM (BEAKER) (test 8.4 mg/dL 8.4-10.2 phel=653) EGFR (BEAKER) (test 25 mL/min/1.73 sq m ESTIMATED GFR IS NOT nyxd=6079) ACCURATE CREATININE CLEARANCE IN PREDICTING GLOMERULAR FILTRATION RATE. ESTIMATED GFR IS NOT APPLICABLE FOR DIALYSIS PATIENTS. [id number] 21:38:00 Test Item Value Reference Range Comments MAGNESIUM (BEAKER) (test qixj=652) 2.1 mg/dL 1.6-2.6 LACTIC ACID, ARTERIAL, WHOLE [id number] 21:32:00 Test Item Value Reference Range Comments LACTATE BLOOD ARTERIAL (2) (BEAKER) (test 0.6 mmol/L 0.5-2.2 vhwi=8441) Effective 08/06/2015: Units/Reference Range ChangeNew: 0.5-2.2 mmol/L Previous: 5 -20 mg/dLPOCT-GLUCOSE [id number] 21:21:00 Test Item Value Reference Range Comments POC-GLUCOSE METER (BEAKER) 198 mg/dL 70-110 TESTED AT [address] (test lirr=1730) [facility] [address] POCT-GLUCOSE [id number] 21:21:00 Test Item Value Reference Range Comments POC-GLUCOSE METER (BEAKER) 155 mg/dL 70-110 TESTED AT [address] (test yfbe=7260) [facility] [address] POCT-GLUCOSE [id number] 21:21:00 Test Item Value Reference Range Comments POC-GLUCOSE METER (BEAKER) 67 mg/dL 70-110 TESTED AT [address] (test tknm=4378) [place] [id number] BLOOD GAS, [id number] 21:16:00 Test Item Value Reference Range Comments PH ARTERIAL (BEAKER) (test mwet=459) 7.34 7.35-7.45 PCO2 ARTERIAL (BEAKER) (test iiuw=863) 56 mmHg 35-45 PO2 ARTERIAL (BEAKER) (test rprz=512) 107 mmHg 80-90 O2 SATURATION ARTERIAL (BEAKER) (test yqqj=946) 97.3 % 96.0-97.0 HCO3 ARTERIAL (BEAKER) (test asjb=231) 29 mmol/L 21-29 BASE EXCESS ARTERIAL (BEAKER) (test olux=949) 2.7 mmol/L -2.0-3.0 PATIENT TEMPERATURE (BEAKER) (test mtsj=7490) 37.8 C FIO2 (BEAKER) (test wvmt=2689) 100.0 % GLUCOSE-STAT [id number] 21:16:00 Test Item Value Reference Range Comments GLUCOSE RANDOM (BEAKER) (test fpms=971) 188 mg/dL 70-110 HGB/HCT (H&H) - STAT [id number] 21:16:00 Test Item Value Reference Range Comments HEMOGLOBIN (BEAKER) (test qvwe=506) 9.9 g/dL 12.0-15.0 HEMATOCRIT (BEAKER) (test qloj=005) 29.0 % 36.0-45.0 SODIUM NA-STAT [id number] 21:15:00 Test Item Value Reference Range Comments SODIUM (BEAKER) (test ncdy=614) 140 meq/L 135-148 POTASSIUM-STAT [id number] 21:15:00 Test Item Value Reference Range Comments POTASSIUM (BEAKER) (test xxlh=254) 3.9 meq/L 3.6-5.5 BLOOD GAS, [id number] 19:44:00 Test Item Value Reference Range Comments PH ARTERIAL (BEAKER) (test sppu=519) 7.34 7.35-7.45 PCO2 ARTERIAL (BEAKER) (test fdma=343) 31 mmHg 35-45 PO2 ARTERIAL (BEAKER) (test xdph=567) 68 mmHg 80-90 O2 SATURATION ARTERIAL (BEAKER) (test fgyz=598) 92.1 % 96.0-97.0 HCO3 ARTERIAL (BEAKER) (test bcvr=604) 16 mmol/L 21-29 BASE EXCESS ARTERIAL (BEAKER) (test crru=058) -8.7 mmol/L -2.0-3.0 PATIENT TEMPERATURE (BEAKER) (test lscg=4198) 37.7 C FIO2 (BEAKER) (test wwdl=7422) 50.0 % POCT-GLUCOSE [id number] 18:30:00 Test Item Value Reference Range Comments POC-GLUCOSE METER (BEAKER) 90 mg/dL 70-110 TESTED AT [address] (test rggx=3973) [facility] [address] TROPONIN [id number] 18:05:00 Test Item Value Reference Range Comments TROPONIN I (BEAKER) (test odqd=924) 76.69 ng/mL 0.00-0.03 Troponin I (TnI) levels [...] acute neurological disease, and persistent tachyarrhythmia.BASIC METABOLIC [id number] 17:56:00 Test Item Value Reference Range Comments SODIUM (BEAKER) (test 143 meq/L 136-145 odej=564) POTASSIUM (BEAKER) (test 3.8 meq/L 3.5-5.1 vojd=509) CHLORIDE (BEAKER) (test 104 meq/L 98-107 kpsh=715) CO2 (BEAKER) (test 29 meq/L 22-29 rebp=704) BLOOD UREA NITROGEN 37 mg/dL 7-21 (BEAKER) (test pwti=448) CREATININE (BEAKER) (test 2.45 mg/dL 0.57-1.25 dodw=580) GLUCOSE RANDOM (BEAKER) 107 mg/dL 70-105 (test jxxe=729) CALCIUM (BEAKER) (test 8.6 mg/dL 8.4-10.2 oidm=882) EGFR (BEAKER) (test 24 mL/min/1.73 sq m ESTIMATED GFR IS NOT ozhf=6364) ACCURATE CREATININE CLEARANCE IN PREDICTING GLOMERULAR FILTRATION RATE. ESTIMATED GFR IS NOT APPLICABLE FOR DIALYSIS PATIENTS. [id number] 17:43:00 Test Item Value Reference Range Comments PHOSPHORUS (BEAKER) (test hufj=656) 4.8 mg/dL 2.3-4.7 [id number] 17:43:00 Test Item Value Reference Range Comments MAGNESIUM (BEAKER) (test jqva=205) 2.4 mg/dL 1.6-2.6 [id number] 17:34:00 Test Item Value Reference Range Comments PARTIAL THROMBOPLASTIN TIME (BEAKER) (test 101.4 seconds 22.5-36.0 rvue=180) BLOOD GAS, [id number] 17:23:00 Test Item Value Reference Range Comments PH ARTERIAL (BEAKER) (test leud=112) 7.36 7.35-7.45 PCO2 ARTERIAL (BEAKER) (test ainl=339) 60 mmHg 35-45 PO2 ARTERIAL (BEAKER) (test gvay=616) 82 mmHg 80-90 O2 SATURATION ARTERIAL (BEAKER) (test drni=579) 95.1 % 96.0-97.0 HCO3 ARTERIAL (BEAKER) (test jinb=628) 33 mmol/L 21-29 BASE EXCESS ARTERIAL (BEAKER) (test eims=854) 6.0 mmol/L -2.0-3.0 PATIENT TEMPERATURE (BEAKER) (test ldfc=8960) 37.4 C FIO2 (BEAKER) (test vndv=4095) 70.0 % GLUCOSE-STAT [id number] 17:20:00 Test Item Value Reference Range Comments GLUCOSE RANDOM (BEAKER) (test jzsz=858) 106 mg/dL 70-110 POCT-GLUCOSE [id number] 16:32:00 Test Item Value Reference Range Comments POC-GLUCOSE METER (BEAKER) 115 mg/dL 70-110 TESTED AT [address] (test temy=6779) [place] [address] VANCOMYCIN LEVEL, [id number] 16:10:00 Test Item Value Reference Range Comments VANCOMYCIN TROUGH (BEAKER) (test pwga=565) 17.0 ug/mL 10.0-20.0 POCT-GLUCOSE [id number] 15:32:00 Test Item Value Reference Range Comments POC-GLUCOSE METER (BEAKER) 119 mg/dL 70-110 TESTED AT [address] (test fqte=0670) [place] [address] TROPONIN [id number] 13:14:00 Test Item Value Reference Range Comments TROPONIN I (BEAKER) (test gpoa=582) 81.57 ng/mL 0.00-0.03 Troponin I (TnI) levels [...] acute neurological disease, and persistent tachyarrhythmia.BASIC METABOLIC [id number] 12:49:00 Test Item Value Reference Range Comments SODIUM (BEAKER) (test 140 meq/L 136-145 iycx=437) POTASSIUM (BEAKER) (test 3.6 meq/L 3.5-5.1 Specimen slightly tonj=720) hemolyzed CHLORIDE (BEAKER) (test 104 meq/L 98-107 epja=764) CO2 (BEAKER) (test 27 meq/L 22-29 xdtv=815) BLOOD UREA NITROGEN 37 mg/dL 7-21 (BEAKER) (test wxnk=590) CREATININE (BEAKER) (test 2.35 mg/dL 0.57-1.25 Specimen slightly zwic=029) hemolyzed GLUCOSE RANDOM (BEAKER) 192 mg/dL 70-105 (test kfkt=859) CALCIUM (BEAKER) (test 8.1 mg/dL 8.4-10.2 axhw=964) EGFR (BEAKER) (test 25 mL/min/1.73 sq m ESTIMATED GFR IS NOT nbfl=6931) ACCURATE CREATININE CLEARANCE IN PREDICTING GLOMERULAR FILTRATION RATE. ESTIMATED GFR IS NOT APPLICABLE FOR DIALYSIS PATIENTS. [id number] 12:46:00 Test Item Value Reference Range Comments MAGNESIUM (BEAKER) (test 2.2 mg/dL 1.6-2.6 Specimen slightly hemolyzed zpgm=812) [id number] 12:46:00 Test Item Value Reference Range Comments PHOSPHORUS (BEAKER) (test 4.6 mg/dL 2.3-4.7 Specimen slightly hemolyzed gypy=675) POCT-GLUCOSE [id number] 12:16:00 Test Item Value Reference Range Comments POC-GLUCOSE METER (BEAKER) 210 mg/dL 70-110 TESTED AT [address] (test tpdw=9389) [place] [id number] POCT-GLUCOSE [id number] 12:16:00 Test Item Value Reference Range Comments POC-GLUCOSE METER (BEAKER) 247 mg/dL 70-110 TESTED AT [address] (test ygak=4386) [place] [id number] POCT-GLUCOSE [id number] 12:16:00 Test Item Value Reference Range Comments POC-GLUCOSE METER (BEAKER) 174 mg/dL 70-110 TESTED AT [address] (test fdco=1004) [facility] [id number] BLOOD GAS, [id number] 12:14:00 Test Item Value Reference Range Comments PH ARTERIAL (BEAKER) (test jlvg=102) 7.36 7.35-7.45 PCO2 ARTERIAL (BEAKER) (test zwyy=602) 56 mmHg 35-45 PO2 ARTERIAL (BEAKER) (test vlon=667) 65 mmHg 80-90 O2 SATURATION ARTERIAL (BEAKER) (test ffro=061) 90.4 % 96.0-97.0 HCO3 ARTERIAL (BEAKER) (test ifky=395) 31 mmol/L 21-29 BASE EXCESS ARTERIAL (BEAKER) (test rpsg=535) 4.8 mmol/L -2.0-3.0 PATIENT TEMPERATURE (BEAKER) (test haoz=0103) 38.0 C FIO2 (BEAKER) (test ltgw=4759) 60.0 % [id number] 10:58:00 Test Item Value Reference Range Comments PARTIAL THROMBOPLASTIN TIME (BEAKER) (test 99.0 seconds 22.5-36.0 ocqs=053) RAD, CHEST, 1 VIEW, NON [id number] 08:30:00Reason for exam:->r/o pleural effusionShould this be [...] unchanged. No pneumothorax is seen. Signed[facility] Verified Date/Time: 07/20/2017 08:30:52 Reading Location: [facility] Radiology ReadingRoom BLOOD GAS, [id number] 06 :37:00 Test Item Value Reference Range Comments PH ARTERIAL (BEAKER) (test vana=101) 7.38 7.35-7.45 PCO2 ARTERIAL (BEAKER) (test qbom=622) 50 mmHg 35-45 PO2 ARTERIAL (BEAKER) (test vycz=263) 97 mmHg 80-90 O2 SATURATION ARTERIAL (BEAKER) (test vqrt=956) 96.9 % 96.0-97.0 HCO3 ARTERIAL (BEAKER) (test vqwr=550) 28 mmol/L 21-29 BASE EXCESS ARTERIAL (BEAKER) (test vrqw=056) 2.7 mmol/L -2.0-3.0 PATIENT TEMPERATURE (BEAKER) (test uhsp=7472) 37.8 C FIO2 (BEAKER) (test lvtq=8277) 40.0 % POCT-GLUCOSE [id number] 06:15:00 Test Item Value Reference Range Comments POC-GLUCOSE METER (BEAKER) 114 mg/dL 70-110 TESTED AT [address] (test emfg=7258) [facility] [address] POCT-GLUCOSE [id number] 06:15:00 Test Item Value Reference Range Comments POC-GLUCOSE METER (BEAKER) 140 mg/dL 70-110 TESTED AT [address] (test ehqx=0588) [facility] [address] POCT-GLUCOSE [id number] 05:23:00 Test Item Value Reference Range Comments POC-GLUCOSE METER (BEAKER) 77 mg/dL 70-110 TESTED AT [address] (test yjxu=9040) [facility] [address] CALCIUM, [id number] 04:34:00 Test Item Value Reference Range Comments CALCIUM IONIZED (BEAKER) (test htzz=732) 1.14 mmol/L 1.12-1.27 PH, BLOOD (BEAKER) (test rbcp=0556) 7.34 BLOOD GAS, [id number] 04:32:00 Test Item Value Reference Range Comments PH ARTERIAL (BEAKER) (test mrnc=682) 7.32 7.35-7.45 PCO2 ARTERIAL (BEAKER) (test caor=842) 60 mmHg 35-45 PO2 ARTERIAL (BEAKER) (test uoka=536) 92 mmHg 80-90 O2 SATURATION ARTERIAL (BEAKER) (test mptf=394) 95.9 % 96.0-97.0 HCO3 ARTERIAL (BEAKER) (test xoev=168) 30 mmol/L 21-29 BASE EXCESS ARTERIAL (BEAKER) (test vxkg=523) 3.2 mmol/L -2.0-3.0 PATIENT TEMPERATURE (BEAKER) (test ivch=5550) 37.8 C FIO2 (BEAKER) (test plvi=8985) 40.0 % COMPREHENSIVE METABOLIC [id number] 04:24:00 Test Item Value Reference Range Comments TOTAL PROTEIN (BEAKER) 6.5 gm/dL 6.0-8.3 (test kseq=518) ALBUMIN (BEAKER) (test 3.4 g/dL 3.5-5.0 mxse=6055) ALKALINE PHOSPHATASE 47 U/L 40-150 (BEAKER) (test gmhp=440) BILIRUBIN TOTAL (BEAKER) 0.8 mg/dL 0.2-1.2 (test eruc=145) SODIUM (BEAKER) (test 142 meq/L 136-145 wwds=962) POTASSIUM (BEAKER) (test 3.7 meq/L 3.5-5.1 hnqn=134) CHLORIDE (BEAKER) (test 103 meq/L 98-107 eqpv=132) CO2 (BEAKER) (test 29 meq/L 22-29 pnqz=098) BLOOD UREA NITROGEN 34 mg/dL 7-21 (BEAKER) (test ysbe=544) CREATININE (BEAKER) (test 2.44 mg/dL 0.57-1.25 wgje=408) GLUCOSE RANDOM (BEAKER) 128 mg/dL 70-105 (test fgzt=566) CALCIUM (BEAKER) (test 8.7 mg/dL 8.4-10.2 djfm=046) AST (SGOT) (BEAKER) (test 158 U/L 5-34 krvj=287) ALT (SGPT) (BEAKER) (test 63 U/L 6-55 osdo=000) EGFR (BEAKER) (test 24 mL/min/1.73 sq m ESTIMATED GFR IS NOT pqaa=1758) ACCURATE CREATININE CLEARANCE IN PREDICTING GLOMERULAR FILTRATION RATE. ESTIMATED GFR IS NOT APPLICABLE FOR DIALYSIS PATIENTS. BASIC METABOLIC [id number] 04:24:00 Test Item Value Reference Range Comments SODIUM (BEAKER) (test 142 meq/L 136-145 zfrs=592) POTASSIUM (BEAKER) (test 3.7 meq/L 3.5-5.1 ujbp=868) CHLORIDE (BEAKER) (test 103 meq/L 98-107 cxun=944) CO2 (BEAKER) (test 29 meq/L 22-29 togz=935) BLOOD UREA NITROGEN 34 mg/dL 7-21 (BEAKER) (test ledk=363) CREATININE (BEAKER) (test 2.44 mg/dL 0.57-1.25 pbke=086) GLUCOSE RANDOM (BEAKER) 128 mg/dL 70-105 (test rhfl=714) CALCIUM (BEAKER) (test 8.7 mg/dL 8.4-10.2 jqoy=187) EGFR (BEAKER) (test 24 mL/min/1.73 sq m ESTIMATED GFR IS NOT wiuc=1275) ACCURATE CREATININE CLEARANCE IN PREDICTING GLOMERULAR FILTRATION RATE. ESTIMATED GFR IS NOT APPLICABLE FOR DIALYSIS PATIENTS. [id number] 04:22:00 Test Item Value Reference Range Comments PHOSPHORUS (BEAKER) (test brnk=121) 5.2 mg/dL 2.3-4.7 [id number] 04:22:00 Test Item Value Reference Range Comments MAGNESIUM (BEAKER) (test lzcb=454) 2.4 mg/dL 1.6-2.6 HEPATIC FUNCTION [id number] 04:22:00 Test Item Value Reference Range Comments TOTAL PROTEIN (BEAKER) (test mbep=189) 6.5 gm/dL 6.0-8.3 ALBUMIN (BEAKER) (test hdcj=8285) 3.4 g/dL 3.5-5.0 BILIRUBIN TOTAL (BEAKER) (test ewqa=730) 0.8 mg/dL 0.2-1.2 BILIRUBIN DIRECT (BEAKER) (test xptu=831) 0.4 mg/dL 0.1-0.5 ALKALINE PHOSPHATASE (BEAKER) (test xweu=611) 47 U/L 40-150 AST (SGOT) (BEAKER) (test eksn=710) 158 U/L 5-34 ALT (SGPT) (BEAKER) (test cogo=245) 63 U/L 6-55 [id number] 04:12:00 Test Item Value Reference Range Comments PARTIAL THROMBOPLASTIN TIME (BEAKER) (test 36.8 seconds 22.5-36.0 cszo=532) Prior to initiating heparinPOCT-GLUCOSE [id number] 04:05:00 Test Item Value Reference Range Comments POC-GLUCOSE METER (BEAKER) 134 mg/dL 70-110 TESTED AT [address] (test xqcg=9158) [facility] [address] POCT-GLUCOSE [id number] 04:05:00 Test Item Value Reference Range Comments POC-GLUCOSE METER (BEAKER) 122 mg/dL 70-110 TESTED AT [address] (test omoz=3029) [facility] [address] POCT-GLUCOSE [id number] 04:05:00 Test Item Value Reference Range Comments POC-GLUCOSE METER (BEAKER) 201 mg/dL 70-110 TESTED AT [address] (test loib=7460) [facility] [address] CBC W/PLT COUNT & AUTO [id number] 04:02:00 Test Item Value Reference Range Comments WHITE BLOOD CELL COUNT (BEAKER) (test narz=985) 13.6 K/ L 3.5-10.5 RED BLOOD CELL COUNT (BEAKER) (test lavo=394) 3.18 M/ L 3.93-5.22 HEMOGLOBIN (BEAKER) (test dgih=846) 9.7 GM/DL 11.2-15.7 HEMATOCRIT (BEAKER) (test hfgo=608) 31.0 % 34.1-44.9 MEAN CORPUSCULAR VOLUME (BEAKER) (test yjnb=179) 97.5 fL 79.4-94.8 MEAN CORPUSCULAR HEMOGLOBIN (BEAKER) (test 30.5 pg 25.6-32.2 aebw=204) MEAN CORPUSCULAR HEMOGLOBIN CONC (BEAKER) (test 31.3 GM/DL 32.2-35.5 zbyp=969) RED CELL DISTRIBUTION WIDTH (BEAKER) (test 13.3 % 11.7-14.4 fnpo=306) PLATELET COUNT (BEAKER) (test qyhe=851) 167 K/CU MM 150-450 MEAN PLATELET VOLUME (BEAKER) (test ytar=839) 11.0 fL 9.4-12.3 NUCLEATED RED BLOOD CELLS (BEAKER) (test 0 /100 WBC 0-0 ejik=245) NEUTROPHILS RELATIVE PERCENT (BEAKER) (test 85 % ydrm=928) LYMPHOCYTES RELATIVE PERCENT (BEAKER) (test 7 % hlbn=193) MONOCYTES RELATIVE PERCENT (BEAKER) (test 7 % swnb=963) EOSINOPHILS RELATIVE PERCENT (BEAKER) (test 0 % yems=400) BASOPHILS RELATIVE PERCENT (BEAKER) (test 0 % cswl=915) NEUTROPHILS ABSOLUTE COUNT (BEAKER) (test 11.61 K/ L 1.56-6.13 ccha=687) LYMPHOCYTES ABSOLUTE COUNT (BEAKER) (test 0.98 K/ L 1.18-3.74 qdqs=719) MONOCYTES ABSOLUTE COUNT (BEAKER) (test 0.92 K/ L 0.24-0.36 tuzs=406) EOSINOPHILS ABSOLUTE COUNT (BEAKER) (test 0.00 K/ L 0.04-0.36 lqsa=379) BASOPHILS ABSOLUTE COUNT (BEAKER) (test 0.02 K/ L 0.01-0.08 abff=829) IMMATURE GRANULOCYTES-RELATIVE PERCENT (BEAKER) 1 % 0-1 (test hltx=6855) [id number] 02:01:00 Test Item Value Reference Range Comments PARTIAL THROMBOPLASTIN TIME (BEAKER) (test 32.5 seconds 22.5-36.0 jjon=728) BLOOD GAS, [id number] 01:09:00 Test Item Value Reference Range Comments PH ARTERIAL (BEAKER) (test srvh=472) 7.35 7.35-7.45 PCO2 ARTERIAL (BEAKER) (test dajx=369) 50 mmHg 35-45 PO2 ARTERIAL (BEAKER) (test pfro=175) 86 mmHg 80-90 O2 SATURATION ARTERIAL (BEAKER) (test qnie=851) 95.3 % 96.0-97.0 HCO3 ARTERIAL (BEAKER) (test zpzu=252) 27 mmol/L 21-29 BASE EXCESS ARTERIAL (BEAKER) (test ygzi=518) 1.0 mmol/L -2.0-3.0 PATIENT TEMPERATURE (BEAKER) (test wewg=7539) 38.2 C FIO2 (BEAKER) (test nvan=7211) 40.0 % POCT-GLUCOSE [id number] 01:04:00 Test Item Value Reference Range Comments POC-GLUCOSE METER (BEAKER) 199 mg/dL 70-110 TESTED AT [facility] [address] [facility] (test aaxn=5399) [facility] [address] [id number] 00:14:00 Test Item Value Reference Range Comments MAGNESIUM (BEAKER) (test 2.3 mg/dL 1.6-2.6 Specimen slightly hemolyzed kxnx=265) [id number] 00:14:00 Test Item Value Reference Range Comments POTASSIUM (BEAKER) (test 3.8 meq/L 3.5-5.1 Specimen slightly hemolyzed exmq=991) CALCIUM, [id number] 00:11:00 Test Item Value Reference Range Comments CALCIUM IONIZED (BEAKER) (test difp=515) 1.06 mmol/L 1.12-1.27 PH, BLOOD (BEAKER) (test xgxq=6694) 7.35 BLOOD GAS, [id number] 00:11:00 Test Item Value Reference Range Comments PH ARTERIAL (BEAKER) (test xoyu=902) 7.33 7.35-7.45 PCO2 ARTERIAL (BEAKER) (test ucmj=465) 53 mmHg 35-45 PO2 ARTERIAL (BEAKER) (test oakz=527) 58 mmHg 80-90 O2 SATURATION ARTERIAL (BEAKER) (test midd=998) 86.1 % 96.0-97.0 HCO3 ARTERIAL (BEAKER) (test figm=944) 27 mmol/L 21-29 BASE EXCESS ARTERIAL (BEAKER) (test ntqn=266) 0.9 mmol/L -2.0-3.0 PATIENT TEMPERATURE (BEAKER) (test hlwd=3670) 38.0 C FIO2 (BEAKER) (test uqja=3793) 40.0 % Post extubation ABGPOCT-GLUCOSE [id number] 23:58:00 Test Item Value Reference Range Comments POC-GLUCOSE METER (BEAKER) 202 mg/dL 70-110 TESTED AT [address] (test kosg=4136) [place] [address] POCT-GLUCOSE [id number] 23:58:00 Test Item Value Reference Range Comments POC-GLUCOSE METER (BEAKER) 86 mg/dL 70-110 TESTED AT [address] (test kccx=4620) [place] [address] BASIC METABOLIC [id number] 22:18:00 Test Item Value Reference Range Comments SODIUM (BEAKER) (test 141 meq/L 136-145 seib=983) POTASSIUM (BEAKER) (test 3.6 meq/L 3.5-5.1 Specimen slightly znmg=345) hemolyzed CHLORIDE (BEAKER) (test 105 meq/L 98-107 kucu=535) CO2 (BEAKER) (test 26 meq/L 22-29 fczn=695) BLOOD UREA NITROGEN 31 mg/dL 7-21 (BEAKER) (test nzwt=851) CREATININE (BEAKER) (test 2.09 mg/dL 0.57-1.25 Specimen slightly jruq=885) hemolyzed GLUCOSE RANDOM (BEAKER) 81 mg/dL 70-105 (test gyoj=344) CALCIUM (BEAKER) (test 8.3 mg/dL 8.4-10.2 ohqe=881) EGFR (BEAKER) (test 28 mL/min/1.73 sq m ESTIMATED GFR IS NOT shss=9212) ACCURATE CREATININE CLEARANCE IN PREDICTING GLOMERULAR FILTRATION RATE. ESTIMATED GFR IS NOT APPLICABLE FOR DIALYSIS PATIENTS. [id number] 22:17:00 Test Item Value Reference Range Comments PHOSPHORUS (BEAKER) (test 5.1 mg/dL 2.3-4.7 Specimen slightly hemolyzed pcha=723) POCT-GLUCOSE [id number] 20:57:00 Test Item Value Reference Range Comments POC-GLUCOSE METER (BEAKER) 90 mg/dL 70-110 TESTED AT [facility] [address] (test qixf=8465) [facility] [address] BLOOD GAS, [id number] 20:52:00 Test Item Value Reference Range Comments PH ARTERIAL (BEAKER) (test jwgg=553) 7.35 7.35-7.45 PCO2 ARTERIAL (BEAKER) (test actu=879) 49 mmHg 35-45 PO2 ARTERIAL (BEAKER) (test zapt=573) 100 mmHg 80-90 O2 SATURATION ARTERIAL (BEAKER) (test aqws=812) 97.0 % 96.0-97.0 HCO3 ARTERIAL (BEAKER) (test wgtk=179) 26 mmol/L 21-29 BASE EXCESS ARTERIAL (BEAKER) (test xhae=377) 0.3 mmol/L -2.0-3.0 PATIENT TEMPERATURE (BEAKER) (test crpc=2029) 37.7 C FIO2 (BEAKER) (test ybzr=4525) 40.0 % [id number] 18:57:00 Test Item Value Reference Range Comments PARTIAL THROMBOPLASTIN TIME (BEAKER) (test 70.7 seconds 22.5-36.0 dxrs=928) BLOOD GAS, [id number] 16:52:00 Test Item Value Reference Range Comments PH ARTERIAL (BEAKER) (test yvyg=874) 7.37 7.35-7.45 PCO2 ARTERIAL (BEAKER) (test errl=413) 47 mmHg 35-45 PO2 ARTERIAL (BEAKER) (test nhha=957) 117 mmHg 80-90 O2 SATURATION ARTERIAL (BEAKER) (test eafl=941) 98.0 % 96.0-97.0 HCO3 ARTERIAL (BEAKER) (test ytro=341) 26 mmol/L 21-29 BASE EXCESS ARTERIAL (BEAKER) (test rgrp=082) 0.5 mmol/L -2.0-3.0 PATIENT TEMPERATURE (BEAKER) (test oqsa=7759) 37.7 C FIO2 (BEAKER) (test iqhd=5341) 60.0 % GLUCOSE-STAT [id number] 16:52:00 Test Item Value Reference Range Comments GLUCOSE RANDOM (BEAKER) (test ezfu=107) 149 mg/dL 70-110 [id number] 16:22:00 Test Item Value Reference Range Comments PARTIAL THROMBOPLASTIN TIME (BEAKER) (test 197.7 seconds 22.5-36.0 wzky=627) PROTHROMBIN [id number] 16:15:00 Test Item Value Reference Range Comments PROTIME (BEAKER) (test ugvn=292) 16.4 seconds 11.7-14.7 INR (BEAKER) (test yynf=996) 1.3 <=5.9 RECOMMENDED COUMADIN/WARFARIN INR THERAPY RANGESSTANDARD DOSE: 2.0 - 3.0 Includes: PROPHYLAXIS forvenous thrombosis, systemic embolization; TREATMENT for venous thrombosis and/or pulmonary embolus.HIGH RISK: Target INR is 2.5-3.5 for patients with mechanical heart valves.[id number] 16:15:00 Test Item Value Reference Range Comments FIBRINOGEN LEVEL (BEAKER) (test ytau=961) 303 mg/dl 225-434 [id number] 16:15:00 Test Item Value Reference Range Comments MAGNESIUM (BEAKER) (test 3.0 mg/dL 1.6-2.6 Specimen moderately hemolyzed jwpf=128) [id number] 16:15:00 Test Item Value Reference Range Comments PHOSPHORUS (BEAKER) (test 6.6 mg/dL 2.3-4.7 Specimen moderately hemolyzed wrto=338) BASIC METABOLIC [id number] 16:15:00 Test Item Value Reference Range Comments SODIUM (BEAKER) (test 144 meq/L 136-145 ynng=716) POTASSIUM (BEAKER) (test 4.1 meq/L 3.5-5.1 Specimen moderately wtrs=490) hemolyzed CHLORIDE (BEAKER) (test 106 meq/L 98-107 sfxe=702) CO2 (BEAKER) (test 27 meq/L 22-29 egcs=085) BLOOD UREA NITROGEN 30 mg/dL 7-21 (BEAKER) (test jlho=020) CREATININE (BEAKER) (test 1.99 mg/dL 0.57-1.25 Specimen moderately eqxj=202) hemolyzed GLUCOSE RANDOM (BEAKER) 165 mg/dL 70-105 (test hbin=226) CALCIUM (BEAKER) (test 8.6 mg/dL 8.4-10.2 aemn=197) EGFR (BEAKER) (test 30 mL/min/1.73 sq m ESTIMATED GFR IS NOT disf=2719) ACCURATE CREATININE CLEARANCE IN PREDICTING GLOMERULAR FILTRATION RATE. ESTIMATED GFR IS NOT APPLICABLE FOR DIALYSIS PATIENTS. CBC (HEMOGRAM ONLY)[id number] 16:13:00 Test Item Value Reference Range Comments WHITE BLOOD CELL COUNT (BEAKER) (test dbap=401) 14.5 K/ L 3.5-10.5 RED BLOOD CELL COUNT (BEAKER) (test zqah=634) 3.55 M/ L 3.93-5.22 HEMOGLOBIN (BEAKER) (test vgfp=085) 10.7 GM/DL 11.2-15.7 HEMATOCRIT (BEAKER) (test vvhn=095) 34.9 % 34.1-44.9 MEAN CORPUSCULAR VOLUME (BEAKER) (test kfvz=943) 98.3 fL 79.4-94.8 MEAN CORPUSCULAR HEMOGLOBIN (BEAKER) (test 30.1 pg 25.6-32.2 roei=648) MEAN CORPUSCULAR HEMOGLOBIN CONC (BEAKER) (test 30.7 GM/DL 32.2-35.5 mkno=059) RED CELL DISTRIBUTION WIDTH (BEAKER) (test 13.3 % 11.7-14.4 fqva=482) PLATELET COUNT (BEAKER) (test rycd=039) 235 K/CU MM 150-450 MEAN PLATELET VOLUME (BEAKER) (test gqnx=275) 11.0 fL 9.4-12.3 NUCLEATED RED BLOOD CELLS (BEAKER) (test 0 /100 WBC 0-0 lcsj=905) LACTIC ACID, ARTERIAL, WHOLE [id number] 16:12:00 Test Item Value Reference Range Comments LACTATE BLOOD ARTERIAL (2) 2.0 mmol/L 0.5-2.2 Specimen slightly hemolyzed (BEAKER) (test pobe=1013) Effective 08/06/2015: Units/Reference Range ChangeNew: 0.5-2.2 mmol/L Previous: 5 -20 mg/dLCALCIUM, [id number] 15:54:00 Test Item Value Reference Range Comments CALCIUM IONIZED (BEAKER) (test tctm=325) 1.14 mmol/L 1.12-1.27 PH, BLOOD (BEAKER) (test bbmx=9527) 7.24 SODIUM NA-STAT [id number] 15:54:00 Test Item Value Reference Range Comments SODIUM (BEAKER) (test grch=582) 143 meq/L 135-148 POTASSIUM-STAT [id number] 15:54:00 Test Item Value Reference Range Comments POTASSIUM (BEAKER) (test inmu=524) 3.9 meq/L 3.6-5.5 BLOOD GAS, [id number] 15:54:00 Test Item Value Reference Range Comments PH ARTERIAL (BEAKER) (test mzqw=723) 7.26 7.35-7.45 PCO2 ARTERIAL (BEAKER) (test jijy=594) 69 mmHg 35-45 PO2 ARTERIAL (BEAKER) (test wxhw=031) 74 mmHg 80-90 O2 SATURATION ARTERIAL (BEAKER) (test wcey=444) 93.4 % 96.0-97.0 HCO3 ARTERIAL (BEAKER) (test dpzr=189) 31 mmol/L 21-29 BASE EXCESS ARTERIAL (BEAKER) (test ocrm=059) 2.0 mmol/L -2.0-3.0 PATIENT TEMPERATURE (BEAKER) (test tbhm=2946) 35.6 C FIO2 (BEAKER) (test hjch=5877) 50.0 % GLUCOSE-STAT [id number] 15:54:00 Test Item Value Reference Range Comments GLUCOSE RANDOM (BEAKER) (test bggh=323) 169 mg/dL 70-110 HGB/HCT (H&H) - STAT [id number] 15:54:00 Test Item Value Reference Range Comments HEMOGLOBIN (BEAKER) (test zula=434) 11.7 g/dL 12.0-15.0 HEMATOCRIT (BEAKER) (test jsoa=385) 34.0 % 36.0-45.0 RAD, CHEST, 1 VIEW, NON [id number] 15:49:00Reason for exam:->sp PCI/ intubatedFINAL REPORT TECHNIQUE: [...] Location: [facility] RadiologyReading Room [id number] 14:13:00 Test Item Value Reference Range Comments ACTIVATED CLOTTING TIME 131 sec TESTED AT [facility] [address] [facility] ([facility]) (test xnpo=851) [facility] [address] TROPONIN [id number] 12:32:00 Test Item Value Reference Range Comments TROPONIN I (BEAKER) (test eqne=063) 119.79 ng/mL 0.00-0.03 Troponin I (TnI) levels [...] and persistent tachyarrhythmia.CREATINE KINASE (CK), TOTAL AND [id number] 12:26:00 Test Item Value Reference Range Comments CREATINE KINASE TOTAL (BEAKER) (test haph=844) 2405 U/L 29-200 CREATINE KINASE-MB (BEAKER) (test opdf=595) 65.6 ng/mL 0.0-6.6 CREATINE KINASE-MB INDEX (BEAKER) (test bjfk=962) 2.7 % CK-MB Reference Range:<6.7 Normal6.7-10.0 Borderline>10.0 AbnormalPOCT-GLUCOSE [id number] 12:20:00 Test Item Value Reference Range Comments POC-GLUCOSE METER (BEAKER) 183 mg/dL 70-110 TESTED AT [facility] [address] [facility] (test lpwp=0162) [facility] [address] [id number] 12:03:00 Test Item Value Reference Range Comments MAGNESIUM (BEAKER) (test buis=241) 2.8 mg/dL 1.6-2.6 [id number] 12:03:00 Test Item Value Reference Range Comments PHOSPHORUS (BEAKER) (test jbye=816) 5.3 mg/dL 2.3-4.7 BASIC METABOLIC [id number] 12:03:00 Test Item Value Reference Range Comments SODIUM (BEAKER) (test 143 meq/L 136-145 kiyc=025) POTASSIUM (BEAKER) (test 3.8 meq/L 3.5-5.1 ltei=931) CHLORIDE (BEAKER) (test 106 meq/L 98-107 zonb=301) CO2 (BEAKER) (test 27 meq/L 22-29 tsou=984) BLOOD UREA NITROGEN 29 mg/dL 7-21 (BEAKER) (test mgoe=144) CREATININE (BEAKER) (test 1.92 mg/dL 0.57-1.25 xyaq=317) GLUCOSE RANDOM (BEAKER) 188 mg/dL 70-105 (test isvv=147) CALCIUM (BEAKER) (test 8.7 mg/dL 8.4-10.2 zeje=554) EGFR (BEAKER) (test 31 mL/min/1.73 sq m ESTIMATED GFR IS NOT iyoz=5755) ACCURATE CREATININE CLEARANCE IN PREDICTING GLOMERULAR FILTRATION RATE. ESTIMATED GFR IS NOT APPLICABLE FOR DIALYSIS PATIENTS. POCT-GLUCOSE [id number] 11:19:00 Test Item Value Reference Range Comments POC-GLUCOSE METER (BEAKER) 190 mg/dL 70-110 TESTED AT [address] (test hwgn=8183) [facility] [address] POCT-GLUCOSE [id number] 10:12:00 Test Item Value Reference Range Comments POC-GLUCOSE METER (BEAKER) 197 mg/dL 70-110 TESTED AT [address] (test hdkv=9767) [facility] [address] POCT-GLUCOSE [id number] 09:21:00 Test Item Value Reference Range Comments POC-GLUCOSE METER (BEAKER) 221 mg/dL 70-110 TESTED AT [address] (test ywax=9492) [facility] [address] LACTIC ACID, ARTERIAL, WHOLE [id number] 09:19:00 Test Item Value Reference Range Comments LACTATE BLOOD ARTERIAL (2) (BEAKER) (test 2.4 mmol/L 0.5-2.2 jrmn=1541) Effective 08/06/2015: Units/Reference Range ChangeNew: 0.5-2.2 mmol/L Previous: 5 -20 mg/dLPROTHROMBIN [id number] 08:44:00 Test Item Value Reference Range Comments PROTIME (BEAKER) (test jjsh=656) 14.4 seconds 11.7-14.7 INR (BEAKER) (test owgk=985) 1.1 <=5.9 RECOMMENDED COUMADIN/WARFARIN INR THERAPY RANGESSTANDARD DOSE: 2.0 - 3.0 Includes: PROPHYLAXIS forvenous thrombosis, systemic embolization; TREATMENT for venous thrombosis and/or pulmonary embolus.HIGH RISK: Target INR is 2.5-3.5 for patients with mechanical heart valves.[id number] 08:44:00 Test Item Value Reference Range Comments FIBRINOGEN LEVEL (BEAKER) (test ocpb=244) 367 mg/dl 225-434 [id number] 08:44:00 Test Item Value Reference Range Comments PARTIAL THROMBOPLASTIN TIME (BEAKER) (test 30.0 seconds 22.5-36.0 thrw=195) POCT-GLUCOSE [id number] 07:52:00 Test Item Value Reference Range Comments POC-GLUCOSE METER (BEAKER) 215 mg/dL 70-110 TESTED AT [address] (test vuur=0108) [facility] [address] [address], CHEST, WITHOUT [id number] 07:50:00KEEP PATIENT ON CT TABLE. CALL RADIOLOGIST [...] Verified Date /Time: 07/19/2017 07:50:43 Reading Location: [facility] Diagnostic Imaging Reading Room - [place] [address] Electronically signed by: LYNNETTE CASTRO MD on 07:50 AMPOCT-GLUCOSE [id number] 07:37:00 Test Item Value Reference Range Comments POC-GLUCOSE METER (BEAKER) 225 mg/dL 70-110 TESTED AT [address] (test kiik=0837) [facility] [address] RAD, CHEST, 1 VIEW, NON [id number] 04:04:00Reason for exam:->v tach/ iabpShould this be [...] MDReport Verified Date/Time: 07/19/2017 04:04:19 Reading Location: [facility] B1 C013X Ortho Consult Reading Room [id number] 03:59:00 Test Item Value Reference Range Comments PHOSPHORUS (BEAKER) (test dlhq=404) 4.4 mg/dL 2.3-4.7 [id number] 03:59:00 Test Item Value Reference Range Comments MAGNESIUM (BEAKER) (test dkhr=532) 2.5 mg/dL 1.6-2.6 BASIC METABOLIC [id number] 03:59:00 Test Item Value Reference Range Comments SODIUM (BEAKER) (test 145 meq/L 136-145 tpah=752) POTASSIUM (BEAKER) (test 3.6 meq/L 3.5-5.1 gtzn=015) CHLORIDE (BEAKER) (test 106 meq/L 98-107 xpts=642) CO2 (BEAKER) (test 25 meq/L 22-29 koew=277) BLOOD UREA NITROGEN 28 mg/dL 7-21 (BEAKER) (test uvwy=722) CREATININE (BEAKER) (test 1.93 mg/dL 0.57-1.25 hcia=859) GLUCOSE RANDOM (BEAKER) 216 mg/dL 70-105 (test texy=584) CALCIUM (BEAKER) (test 9.0 mg/dL 8.4-10.2 mdmz=493) EGFR (BEAKER) (test 31 mL/min/1.73 sq m ESTIMATED GFR IS NOT lptr=9696) ACCURATE CREATININE CLEARANCE IN PREDICTING GLOMERULAR FILTRATION RATE. ESTIMATED GFR IS NOT APPLICABLE FOR DIALYSIS PATIENTS. B-TYPE NATRIURETIC FACTOR (BNP)2017-07-19 03:10:00 Test Item Value Reference Range Comments B-TYPE NATRIURETIC PEPTIDE (BEAKER) (test 2662 pg/mL 0-100 xooi=793) HEPATIC FUNCTION [id number] 03:04:00 Test Item Value Reference Range Comments TOTAL PROTEIN (BEAKER) (test bgdg=026) 6.6 gm/dL 6.0-8.3 ALBUMIN (BEAKER) (test bupc=2084) 3.5 g/dL 3.5-5.0 BILIRUBIN TOTAL (BEAKER) (test yuua=904) 0.4 mg/dL 0.2-1.2 BILIRUBIN DIRECT (BEAKER) (test iktn=376) 0.2 mg/dL 0.1-0.5 ALKALINE PHOSPHATASE (BEAKER) (test geei=815) 57 U/L 40-150 AST (SGOT) (BEAKER) (test tkym=821) 359 U/L 5-34 ALT (SGPT) (BEAKER) (test cknz=359) 99 U/L 6-55 CREATINE KINASE (CK)2017-07-19 03:04:00 Test Item Value Reference Range Comments CREATINE KINASE TOTAL (BEAKER) (test kurv=747) 2888 U/L 29-200 CBC W/PLT COUNT & AUTO [id number] 02:56:00 Test Item Value Reference Range Comments WHITE BLOOD CELL COUNT (BEAKER) (test lrzm=352) 19.0 K/ L 3.5-10.5 RED BLOOD CELL COUNT (BEAKER) (test ddxr=957) 3.69 M/ L 3.93-5.22 HEMOGLOBIN (BEAKER) (test ycwm=525) 11.2 GM/DL 11.2-15.7 HEMATOCRIT (BEAKER) (test crgh=880) 35.3 % 34.1-44.9 MEAN CORPUSCULAR VOLUME (BEAKER) (test ryfx=468) 95.7 fL 79.4-94.8 MEAN CORPUSCULAR HEMOGLOBIN (BEAKER) (test 30.4 pg 25.6-32.2 gpee=075) MEAN CORPUSCULAR HEMOGLOBIN CONC (BEAKER) (test 31.7 GM/DL 32.2-35.5 evfe=018) RED CELL DISTRIBUTION WIDTH (BEAKER) (test 13.1 % 11.7-14.4 tyvm=000) PLATELET COUNT (BEAKER) (test vjvh=800) 253 K/CU MM 150-450 MEAN PLATELET VOLUME (BEAKER) (test wtma=130) 10.0 fL 9.4-12.3 NUCLEATED RED BLOOD CELLS (BEAKER) (test 0 /100 WBC 0-0 homp=036) NEUTROPHILS RELATIVE PERCENT (BEAKER) (test 86 % naec=540) LYMPHOCYTES RELATIVE PERCENT (BEAKER) (test 6 % njer=498) MONOCYTES RELATIVE PERCENT (BEAKER) (test 7 % ubnz=511) EOSINOPHILS RELATIVE PERCENT (BEAKER) (test 0 % wypj=929) BASOPHILS RELATIVE PERCENT (BEAKER) (test 0 % frgr=898) NEUTROPHILS ABSOLUTE COUNT (BEAKER) (test 16.34 K/ L 1.56-6.13 odqu=961) LYMPHOCYTES ABSOLUTE COUNT (BEAKER) (test 1.15 K/ L 1.18-3.74 jroh=588) MONOCYTES ABSOLUTE COUNT (BEAKER) (test 1.39 K/ L 0.24-0.36 qohk=614) EOSINOPHILS ABSOLUTE COUNT (BEAKER) (test 0.00 K/ L 0.04-0.36 shph=256) BASOPHILS ABSOLUTE COUNT (BEAKER) (test 0.02 K/ L 0.01-0.08 kaea=625) IMMATURE GRANULOCYTES-RELATIVE PERCENT (BEAKER) 0 % 0-1 (test atvd=6415) CALCIUM, [id number] 02:49:00 Test Item Value Reference Range Comments CALCIUM IONIZED (BEAKER) (test jmck=917) 1.14 mmol/L 1.12-1.27 PH, BLOOD (BEAKER) (test cwuv=9744) 7.36 CBC (HEMOGRAM ONLY)2017-07-19 02:48:00 Test Item Value Reference Range Comments WHITE BLOOD CELL COUNT (BEAKER) (test dyfx=815) 19.0 K/ L 3.5-10.5 RED BLOOD CELL COUNT (BEAKER) (test plep=179) 3.69 M/ L 3.93-5.22 HEMOGLOBIN (BEAKER) (test hhyy=260) 11.2 GM/DL 11.2-15.7 HEMATOCRIT (BEAKER) (test tjqf=751) 35.3 % 34.1-44.9 MEAN CORPUSCULAR VOLUME (BEAKER) (test nwxj=363) 95.7 fL 79.4-94.8 MEAN CORPUSCULAR HEMOGLOBIN (BEAKER) (test 30.4 pg 25.6-32.2 iezf=466) MEAN CORPUSCULAR HEMOGLOBIN CONC (BEAKER) (test 31.7 GM/DL 32.2-35.5 zjer=437) RED CELL DISTRIBUTION WIDTH (BEAKER) (test 13.1 % 11.7-14.4 rtff=103) PLATELET COUNT (BEAKER) (test nkck=223) 253 K/CU MM 150-450 MEAN PLATELET VOLUME (BEAKER) (test wlor=355) 10.0 fL 9.4-12.3 NUCLEATED RED BLOOD CELLS (BEAKER) (test 0 /100 WBC 0-0 pzbb=824) BLOOD GAS, [id number] 02:48:00 Test Item Value Reference Range Comments PH ARTERIAL (BEAKER) (test kqxs=161) 7.35 7.35-7.45 PCO2 ARTERIAL (BEAKER) (test qcbj=094) 55 mmHg 35-45 PO2 ARTERIAL (BEAKER) (test wwrc=934) 73 mmHg 80-90 O2 SATURATION ARTERIAL (BEAKER) (test onbf=606) 93.3 % 96.0-97.0 HCO3 ARTERIAL (BEAKER) (test uivm=049) 30 mmol/L 21-29 BASE EXCESS ARTERIAL (BEAKER) (test ifnk=415) 3.1 mmol/L -2.0-3.0 PATIENT TEMPERATURE (BEAKER) (test ydgs=6429) 37.5 C FIO2 (BEAKER) (test zwdo=5032) 40.0 % POCT-GLUCOSE [id number] 02:21:00 Test Item Value Reference Range Comments POC-GLUCOSE METER (BEAKER) 184 mg/dL 70-110 TESTED AT [address] (test mshr=1458) [facility] [address] POCT-GLUCOSE [id number] 01:15:00 Test Item Value Reference Range Comments POC-GLUCOSE METER (BEAKER) 173 mg/dL 70-110 TESTED AT [address] (test wxzu=0701) [facility] [address] [id number] 00:55:00 Test Item Value Reference Range Comments PHOSPHORUS (BEAKER) (test psau=315) 3.3 mg/dL 2.3-4.7 [id number] 00:55:00 Test Item Value Reference Range Comments MAGNESIUM (BEAKER) (test izhd=139) 1.8 mg/dL 1.6-2.6 BASIC METABOLIC [id number] 00:55:00 Test Item Value Reference Range Comments SODIUM (BEAKER) (test 143 meq/L 136-145 wpco=360) POTASSIUM (BEAKER) (test 3.9 meq/L 3.5-5.1 zdsb=094) CHLORIDE (BEAKER) (test 106 meq/L 98-107 fvnp=863) CO2 (BEAKER) (test 27 meq/L 22-29 hfza=308) BLOOD UREA NITROGEN 27 mg/dL 7-21 (BEAKER) (test mucd=173) CREATININE (BEAKER) (test 1.90 mg/dL 0.57-1.25 hkls=610) GLUCOSE RANDOM (BEAKER) 181 mg/dL 70-105 (test jrxz=809) CALCIUM (BEAKER) (test 8.9 mg/dL 8.4-10.2 gifd=771) EGFR (BEAKER) (test 32 mL/min/1.73 sq m ESTIMATED GFR IS NOT yulm=9657) ACCURATE CREATININE CLEARANCE IN PREDICTING GLOMERULAR FILTRATION RATE. ESTIMATED GFR IS NOT APPLICABLE FOR DIALYSIS PATIENTS. POCT-GLUCOSE [id number] 00:11:00 Test Item Value Reference Range Comments POC-GLUCOSE METER (BEAKER) 177 mg/dL 70-110 TESTED AT [address] (test sfih=2845) [place] [id number] POCT-GLUCOSE [id number] 23:25:00 Test Item Value Reference Range Comments POC-GLUCOSE METER (BEAKER) 206 mg/dL 70-110 TESTED AT [address] (test vmvr=6707) [facility] [address] POCT-GLUCOSE [id number] 22:19:00 Test Item Value Reference Range Comments POC-GLUCOSE METER (BEAKER) 243 mg/dL 70-110 TESTED AT [address] (test mhrz=9849) [facility] [address] POCT-GLUCOSE [id number] 21:37:00 Test Item Value Reference Range Comments POC-GLUCOSE METER (BEAKER) 235 mg/dL 70-110 TESTED AT [address] (test himh=0398) [place] [id number] POCT-GLUCOSE [id number] 20:04:00 Test Item Value Reference Range Comments POC-GLUCOSE METER (BEAKER) 216 mg/dL 70-110 TESTED AT [address] (test xlnk=3629) [place] [address] POCT-GLUCOSE [id number] 18:40:00 Test Item Value Reference Range Comments POC-GLUCOSE METER (BEAKER) 271 mg/dL 70-110 TESTED AT [facility] [address] (test tadn=8928) [facility] [address] [id number] 18:32:00 Test Item Value Reference Range Comments MAGNESIUM (BEAKER) (test 1.9 mg/dL 1.6-2.6 Specimen slightly hemolyzed dxcc=586) [id number] 18:32:00 Test Item Value Reference Range Comments PHOSPHORUS (BEAKER) (test 3.1 mg/dL 2.3-4.7 Specimen slightly hemolyzed nnwb=174) BASIC METABOLIC [id number] 18:32:00 Test Item Value Reference Range Comments SODIUM (BEAKER) (test 142 meq/L 136-145 ajxv=304) POTASSIUM (BEAKER) (test 3.9 meq/L 3.5-5.1 Specimen slightly sftj=930) hemolyzed CHLORIDE (BEAKER) (test 107 meq/L 98-107 abrr=782) CO2 (BEAKER) (test 24 meq/L 22-29 ryts=799) BLOOD UREA NITROGEN 22 mg/dL 7-21 (BEAKER) (test decq=788) CREATININE (BEAKER) (test 1.55 mg/dL 0.57-1.25 Specimen slightly qzjy=508) hemolyzed GLUCOSE RANDOM (BEAKER) 242 mg/dL 70-105 (test pxdn=456) CALCIUM (BEAKER) (test 8.8 mg/dL 8.4-10.2 gnpm=322) EGFR (BEAKER) (test 40 mL/min/1.73 sq m ESTIMATED GFR IS NOT zrwl=4946) ACCURATE CREATININE CLEARANCE IN PREDICTING GLOMERULAR FILTRATION RATE. ESTIMATED GFR IS NOT APPLICABLE FOR DIALYSIS PATIENTS. BLOOD GAS, [id number] 18:24:00 Test Item Value Reference Range Comments PH ARTERIAL (BEAKER) (test jper=131) 7.34 7.35-7.45 PCO2 ARTERIAL (BEAKER) (test aizk=952) 51 mmHg 35-45 PO2 ARTERIAL (BEAKER) (test ytgm=545) 57 mmHg 80-90 O2 SATURATION ARTERIAL (BEAKER) (test vunc=330) 87.5 % 96.0-97.0 HCO3 ARTERIAL (BEAKER) (test lysr=455) 27 mmol/L 21-29 BASE EXCESS ARTERIAL (BEAKER) (test nwif=976) 1.0 mmol/L -2.0-3.0 PATIENT TEMPERATURE (BEAKER) (test djqr=1437) 37.2 C FIO2 (BEAKER) (test agje=9536) 40.0 % POCT-GLUCOSE [id number] 17:14:00 Test Item Value Reference Range Comments POC-GLUCOSE METER (BEAKER) 299 mg/dL 70-110 TESTED AT [facility] [address] [place] [address] (test vncs=7795) [facility] [address] LACTIC ACID, ARTERIAL, WHOLE [id number] 16:37:00 Test Item Value Reference Range Comments LACTATE BLOOD ARTERIAL (2) 2.9 mmol/L 0.5-2.2 Specimen slightly hemolyzed (BEAKER) (test bjbe=6254) Effective 08/06/2015: Units/Reference Range ChangeNew: 0.5-2.2 mmol/L Previous: 5 -20 mg/[id number] 15:45:00 Test Item Value Reference Range Comments GLUCOSE RANDOM (BEAKER) (test flid=564) 439 mg/dL 70-105 If last glucose was less than 500, may do bedside glucose instead of serum glucose.POCT-GLUCOSE [id number] 15:21:00 Test Item Value Reference Range Comments POC-GLUCOSE METER (BEAKER) 374 mg/dL 70-110 Notified PAULA BERGER/TESTED AT [facility] (test pafv=2161) [address] [facility] [address] [id number] 15:14:00 Test Item Value Reference Range Comments POTASSIUM (BEAKER) (test ummp=304) 4.0 meq/L 3.5-5.1 If last glucose was less than 500, may do bedside glucose instead of serum glucose.URINALYSIS W/ [id number] 15:03:00 Test Item Value Reference Range Comments COLOR (BEAKER) (test vnxo=344) Yellow CLARITY (BEAKER) (test wznf=147) Clear SPECIFIC GRAVITY UA (BEAKER) (test mfgr=062) 1.050 1.001-1.035 PH UA (BEAKER) (test owuo=093) 5.5 5.0-8.0 PROTEIN UA (BEAKER) (test yodp=874) 50 mg/dL Negative GLUCOSE UA (BEAKER) (test tots=429) >1000 mg/dL Negative KETONES UA (BEAKER) (test ppaj=970) Negative Negative BILIRUBIN UA (BEAKER) (test zbct=991) Negative Negative BLOOD UA (BEAKER) (test dnax=161) Moderate Negative NITRITE UA (BEAKER) (test gkoj=476) Negative Negative LEUKOCYTE ESTERASE UA (BEAKER) (test roti=656) Negative Negative UROBILINOGEN UA (BEAKER) (test klwk=202) 0.2 mg/dL 0.2-1.0 RBC UA (BEAKER) (test hdbb=127) 16 /HPF WBC UA (BEAKER) (test zbup=724) 11 /HPF BACTERIA (BEAKER) (test dxji=057) Rare MUCUS (BEAKER) (test rilv=5553) Rare SQUAMOUS EPITHELIAL (BEAKER) (test nhnw=559) 1 /HPF SOURCE(BEAKER) (test earu=0217) U/S, RENAL, [id number] 14:36:00Reason for exam:->acute renal failure , hydronephrosisShould [...] Diazeport Verified Date/Time: 07/18/2017 14:36:40 Reading Location: [facility] [id number] Ultrasound Reading Room Electronically signed by: VIRGINIA DIAZ M.D. on 02:36 PMT4, [id number] 14:31:00 Test Item Value Reference Range Comments FREE T4 (BEAKER) (test yvnx=023) 1.13 ng/dL 0.70-1.48 BLOOD GAS, [id number] 14:01:00 Test Item Value Reference Range Comments PH ARTERIAL (BEAKER) (test iqio=671) 7.42 7.35-7.45 PCO2 ARTERIAL (BEAKER) (test iqgr=076) 42 mmHg 35-45 PO2 ARTERIAL (BEAKER) (test njta=513) 66 mmHg 80-90 O2 SATURATION ARTERIAL (BEAKER) (test ufao=379) 93.5 % 96.0-97.0 HCO3 ARTERIAL (BEAKER) (test ahjz=073) 27 mmol/L 21-29 BASE EXCESS ARTERIAL (BEAKER) (test jild=098) 2.1 mmol/L -2.0-3.0 PATIENT TEMPERATURE (BEAKER) (test glsl=1791) 36.9 C FIO2 (BEAKER) (test hrxs=4506) 40.0 % HEMOGLOBIN [id number] 13:57:00 Test Item Value Reference Range Comments HEMOGLOBIN A1C (BEAKER) (test dqtz=404) 9.8 % 4.3-6.1 SODIUM, RANDOM [id number] 13:49:00 Test Item Value Reference Range Comments SODIUM URINE (BEAKER) (test rgid=368) 22 meq/L Reference Range: No NormalsTSH/FREE T4 IF [id number] 13:49:00 Test Item Value Reference Range Comments THYROID STIMULATING HORMONE (BEAKER) (test 0.27 uIU/mL 0.35-4.94 kfwt=812) POCT-GLUCOSE [id number] 13:47:00 Test Item Value Reference Range Comments POC-GLUCOSE METER (BEAKER) 398 mg/dL 70-110 TESTED AT [facility] [address] [facility] (test lyiz=6093) [facility] [address] CREATININE, RANDOM [id number] 13:43:00 Test Item Value Reference Range Comments CREATININE URINE (BEAKER) (test dghm=553) 85.4 mg/dL Reference Range: No NormalsPROTEIN, RANDOM [id number] 13:43:00 Test Item Value Reference Range Comments PROTEIN, URINE (BEAKER) (test reew=9926) 75 mg/dL 0-14 B-TYPE NATRIURETIC FACTOR (BNP)[id number] 13:17:00 Test Item Value Reference Range Comments B-TYPE NATRIURETIC PEPTIDE (BEAKER) (test 1847 pg/mL 0-100 fwhs=421) BASIC METABOLIC [id number] 13:13:00 Test Item Value Reference Range Comments SODIUM (BEAKER) (test 138 meq/L 136-145 yegg=117) POTASSIUM (BEAKER) (test 4.8 meq/L 3.5-5.1 csml=191) CHLORIDE (BEAKER) (test 101 meq/L 98-107 zhsb=724) CO2 (BEAKER) (test 26 meq/L 22-29 ojsn=503) BLOOD UREA NITROGEN 21 mg/dL 7-21 (BEAKER) (test fulk=347) CREATININE (BEAKER) (test 1.62 mg/dL 0.57-1.25 unej=694) GLUCOSE RANDOM (BEAKER) 527 mg/dL 70-105 (test wsri=891) CALCIUM (BEAKER) (test 8.9 mg/dL 8.4-10.2 lbho=970) EGFR (BEAKER) (test 38 mL/min/1.73 sq m ESTIMATED GFR IS NOT vwzn=6852) ACCURATE CREATININE CLEARANCE IN PREDICTING GLOMERULAR FILTRATION RATE. ESTIMATED GFR IS NOT APPLICABLE FOR DIALYSIS PATIENTS. If last glucose was less than 500, may do bedside glucose instead of serum glucose.[id number] 13:12:00 Test Item Value Reference Range Comments MAGNESIUM (BEAKER) (test otis=008) 1.9 mg/dL 1.6-2.6 If last glucose was less than 500, may do bedside glucose instead of serum glucose.[id number] 13:12:00 Test Item Value Reference Range Comments LIPASE (BEAKER) (test rvvl=754) 106 U/L 8-78 If last glucose was less than 500, may do bedside glucose instead of serum glucose.[id number] 13:11:00 Test Item Value Reference Range Comments PHOSPHORUS (BEAKER) (test jdlj=068) 3.3 mg/dL 2.3-4.7 If last glucose was less than 500, may do bedside glucose instead of serum glucose.POCT-GLUCOSE [id number] 12:49:00 Test Item Value Reference Range Comments POC-GLUCOSE METER (BEAKER) 498 mg/dL 70-110 Notified PAULA BERGER/TESTED AT [facility] (test nbzg=7927) [address] [facility] [address] LACTIC ACID, VENOUS, WHOLE [id number] 12:11:00 Test Item Value Reference Range Comments LACTATE BLOOD VENOUS (2) (BEAKER) (test 3.8 mmol/L 0.5-2.2 nkby=9125) Effective 08/06/2015: Units/Reference Range ChangeNew: 0.5-2.2 mmol/L Previous: 5 -20 mg/[id number] 12:10:00 Test Item Value Reference Range Comments PROCALCITONIN (BEAKER) (test celj=8804) 3.80 ng/mL <0.05 SEPSIS RISK (ng/mL)Low: 0.05-0.50Intermediate: 0.51-2.00High: & gt;=2.01CBC W/PLT COUNT & AUTO [id number] 12:10:00 Test Item Value Reference Range Comments WHITE BLOOD CELL COUNT (BEAKER) (test byiy=092) 11.2 K/ L 3.5-10.5 RED BLOOD CELL COUNT (BEAKER) (test jlru=570) 3.98 M/ L 3.93-5.22 HEMOGLOBIN (BEAKER) (test cxlh=558) 12.0 GM/DL 11.2-15.7 HEMATOCRIT (BEAKER) (test uqxg=650) 38.5 % 34.1-44.9 MEAN CORPUSCULAR VOLUME (BEAKER) (test nnha=908) 96.7 fL 79.4-94.8 MEAN CORPUSCULAR HEMOGLOBIN (BEAKER) (test 30.2 pg 25.6-32.2 totn=412) MEAN CORPUSCULAR HEMOGLOBIN CONC (BEAKER) (test 31.2 GM/DL 32.2-35.5 prdv=019) RED CELL DISTRIBUTION WIDTH (BEAKER) (test 13.1 % 11.7-14.4 xvro=759) PLATELET COUNT (BEAKER) (test yhxv=108) 222 K/CU MM 150-450 MEAN PLATELET VOLUME (BEAKER) (test dayj=061) 10.2 fL 9.4-12.3 NUCLEATED RED BLOOD CELLS (BEAKER) (test 0 /100 WBC 0-0 becd=094) NEUTROPHILS RELATIVE PERCENT (BEAKER) (test 96 % bypc=428) LYMPHOCYTES RELATIVE PERCENT (BEAKER) (test 2 % sqsc=118) MONOCYTES RELATIVE PERCENT (BEAKER) (test 2 % wcue=838) EOSINOPHILS RELATIVE PERCENT (BEAKER) (test 0 % etns=206) BASOPHILS RELATIVE PERCENT (BEAKER) (test 0 % qgtw=751) NEUTROPHILS ABSOLUTE COUNT (BEAKER) (test 10.72 K/ L 1.56-6.13 czwo=713) LYMPHOCYTES ABSOLUTE COUNT (BEAKER) (test 0.24 K/ L 1.18-3.74 dtcf=248) MONOCYTES ABSOLUTE COUNT (BEAKER) (test 0.22 K/ L 0.24-0.36 ylfc=470) EOSINOPHILS ABSOLUTE COUNT (BEAKER) (test 0.00 K/ L 0.04-0.36 poil=772) BASOPHILS ABSOLUTE COUNT (BEAKER) (test 0.01 K/ L 0.01-0.08 qwav=526) IMMATURE GRANULOCYTES-RELATIVE PERCENT (BEAKER) 0 % 0-1 (test udmh=0331) BASIC METABOLIC [id number] 11:35:00 Test Item Value Reference Range Comments SODIUM (BEAKER) (test 136 meq/L 136-145 flir=816) POTASSIUM (BEAKER) (test 4.8 meq/L 3.5-5.1 qqjd=134) CHLORIDE (BEAKER) (test 99 meq/L 98-107 vavn=492) CO2 (BEAKER) (test 25 meq/L 22-29 pmgh=064) BLOOD UREA NITROGEN 19 mg/dL 7-21 (BEAKER) (test vpda=543) CREATININE (BEAKER) (test 1.61 mg/dL 0.57-1.25 zibc=348) GLUCOSE RANDOM (BEAKER) 568 mg/dL 70-105 (test cfcn=606) CALCIUM (BEAKER) (test 8.9 mg/dL 8.4-10.2 jgnz=669) EGFR (BEAKER) (test 38 mL/min/1.73 sq m ESTIMATED GFR IS NOT iewv=5563) ACCURATE CREATININE CLEARANCE IN PREDICTING GLOMERULAR FILTRATION RATE. ESTIMATED GFR IS NOT APPLICABLE FOR DIALYSIS PATIENTS. BLOOD GAS, [id number] 10:57:00 Test Item Value Reference Range Comments PH ARTERIAL (BEAKER) (test hcda=592) 7.36 7.35-7.45 PCO2 ARTERIAL (BEAKER) (test gkku=329) 47 mmHg 35-45 PO2 ARTERIAL (BEAKER) (test ymih=683) 78 mmHg 80-90 O2 SATURATION ARTERIAL (BEAKER) (test fkav=835) 95.0 % 96.0-97.0 HCO3 ARTERIAL (BEAKER) (test gsfh=326) 26 mmol/L 21-29 BASE EXCESS ARTERIAL (BEAKER) (test smtt=180) 0.4 mmol/L -2.0-3.0 PATIENT TEMPERATURE (BEAKER) (test cbvr=4533) 37.0 C FIO2 (BEAKER) (test ldhu=8621) 100.0 % RAD, CHEST, 1 VIEW, NON [id number] 10:38:00Reason for exam:->IABP Should this be performed [...] MDReport Verified Date/Time: 07/18/2017 10:38:31 Reading Location: [facility] Radiology Reading Room CBC W/PLT COUNT & AUTO [id number] 10: 01:00 Test Item Value Reference Range Comments WHITE BLOOD CELL COUNT (BEAKER) (test doyy=546) 12.8 K/ L 3.5-10.5 RED BLOOD CELL COUNT (BEAKER) (test jspf=330) 3.95 M/ L 3.93-5.22 HEMOGLOBIN (BEAKER) (test xfev=132) 11.9 GM/DL 11.2-15.7 HEMATOCRIT (BEAKER) (test vqwt=513) 38.3 % 34.1-44.9 MEAN CORPUSCULAR VOLUME (BEAKER) (test gjmh=365) 97.0 fL 79.4-94.8 MEAN CORPUSCULAR HEMOGLOBIN (BEAKER) (test 30.1 pg 25.6-32.2 ngyk=607) MEAN CORPUSCULAR HEMOGLOBIN CONC (BEAKER) (test 31.1 GM/DL 32.2-35.5 vvgq=840) RED CELL DISTRIBUTION WIDTH (BEAKER) (test 13.1 % 11.7-14.4 mxrb=840) PLATELET COUNT (BEAKER) (test dgmr=379) 231 K/CU MM 150-450 MEAN PLATELET VOLUME (BEAKER) (test nxtd=473) 10.4 fL 9.4-12.3 NUCLEATED RED BLOOD CELLS (BEAKER) (test 0 /100 WBC 0-0 npko=005) NEUTROPHILS RELATIVE PERCENT (BEAKER) (test 91 % arzl=924) LYMPHOCYTES RELATIVE PERCENT (BEAKER) (test 4 % runz=305) MONOCYTES RELATIVE PERCENT (BEAKER) (test 4 % ulex=948) EOSINOPHILS RELATIVE PERCENT (BEAKER) (test 0 % hpba=088) BASOPHILS RELATIVE PERCENT (BEAKER) (test 0 % lxsa=602) NEUTROPHILS ABSOLUTE COUNT (BEAKER) (test 11.66 K/ L 1.56-6.13 okqr=527) LYMPHOCYTES ABSOLUTE COUNT (BEAKER) (test 0.53 K/ L 1.18-3.74 lpyf=744) MONOCYTES ABSOLUTE COUNT (BEAKER) (test 0.49 K/ L 0.24-0.36 pgvw=252) EOSINOPHILS ABSOLUTE COUNT (BEAKER) (test 0.01 K/ L 0.04-0.36 rwdx=666) BASOPHILS ABSOLUTE COUNT (BEAKER) (test 0.03 K/ L 0.01-0.08 wktv=749) IMMATURE GRANULOCYTES-RELATIVE PERCENT (BEAKER) 0 % 0-1 (test frcy=6474) COMPREHENSIVE METABOLIC [id number] 09:38:00 Test Item Value Reference Range Comments TOTAL PROTEIN (BEAKER) 6.7 gm/dL 6.0-8.3 Specimen slightly (test qzql=230) hemolyzed ALBUMIN (BEAKER) (test 3.5 g/dL 3.5-5.0 Specimen slightly xhbm=1866) hemolyzed ALKALINE PHOSPHATASE 70 U/L 40-150 (BEAKER) (test rnoo=399) BILIRUBIN TOTAL (BEAKER) 0.6 mg/dL 0.2-1.2 Specimen slightly (test hdyg=509) hemolyzed SODIUM (BEAKER) (test 134 meq/L 136-145 zjat=399) POTASSIUM (BEAKER) (test 4.7 meq/L 3.5-5.1 Specimen slightly mjku=710) hemolyzed CHLORIDE (BEAKER) (test 98 meq/L 98-107 dfdh=964) CO2 (BEAKER) (test 25 meq/L 22-29 mzqw=429) BLOOD UREA NITROGEN 19 mg/dL 7-21 (BEAKER) (test ldbg=388) CREATININE (BEAKER) (test 1.57 mg/dL 0.57-1.25 Specimen slightly ssun=641) hemolyzed GLUCOSE RANDOM (BEAKER) 652 mg/dL 70-105 (test linl=889) CALCIUM (BEAKER) (test 8.7 mg/dL 8.4-10.2 buqy=283) AST (SGOT) (BEAKER) (test 343 U/L 5-34 Specimen slightly hunm=904) hemolyzed ALT (SGPT) (BEAKER) (test 89 U/L 6-55 Specimen slightly pfoa=491) hemolyzed EGFR (BEAKER) (test 39 mL/min/1.73 sq m ESTIMATED GFR IS NOT vwck=8610) ACCURATE CREATININE CLEARANCE IN PREDICTING GLOMERULAR FILTRATION RATE. ESTIMATED GFR IS NOT APPLICABLE FOR DIALYSIS PATIENTS. [id number] 09:09:00 Test Item Value Reference Range Comments ACTIVATED CLOTTING TIME 252 sec TESTED AT [facility] [address] (BEAKER) (test oxyo=383) [facility] [address] PROTHROMBIN TIME/[id number] 09:01:00 Test Item Value Reference Range Comments PROTIME (BEAKER) (test haaq=329) 18.3 seconds 11.7-14.7 INR (BEAKER) (test kzln=659) 1.5 <=5.9 RECOMMENDED COUMADIN/WARFARIN INR THERAPY RANGESSTANDARD DOSE: 2.0 - 3.0 Includes: PROPHYLAXIS forvenous thrombosis, systemic embolization; TREATMENT for venous thrombosis and/or pulmonary embolus.HIGH RISK: Target INR is 2.5-3.5 for patients with mechanical heart valves.[id number] 08:09:00 Test Item Value Reference Range Comments ACTIVATED CLOTTING TIME 213 sec TESTED AT [place] [address] [address] (BEAKER) (test eihv=315) [facility] [address] [id number] 08:09:00 Test Item Value Reference Range Comments ACTIVATED CLOTTING TIME 263 sec TESTED AT [address] (BEAKER) (test dbds=475) [place] [id number] BLOOD GAS, [id number] 07:50:00 Test Item Value Reference Range Comments PH ARTERIAL (BEAKER) (test ozjn=083) 7.20 7.35-7.45 PCO2 ARTERIAL (BEAKER) (test lrtx=259) 65 mmHg 35-45 PO2 ARTERIAL (BEAKER) (test sdqe=236) 133 mmHg 80-90 O2 SATURATION ARTERIAL (BEAKER) (test vbpk=170) 98.1 % 96.0-97.0 HCO3 ARTERIAL (BEAKER) (test unhi=652) 25 mmol/L 21-29 BASE EXCESS ARTERIAL (BEAKER) (test riwj=492) -4.3 mmol/L -2.0-3.0 PATIENT TEMPERATURE (BEAKER) (test givb=7921) 36.0 C FIO2 (BEAKER) (test bzrh=2592) 100.0 % POCT-GLUCOSE [id number] 12:27:00 Test Item Value Reference Range Comments POC-GLUCOSE METER (BEAKER) 156 mg/dL 70-110 TESTED AT [address] (test ekfl=4728) [place] [address] BASIC METABOLIC [id number] 05:45:00 Test Item Value Reference Range Comments SODIUM (BEAKER) (test 141 meq/L 136-145 jasf=716) POTASSIUM (BEAKER) (test 4.1 meq/L 3.5-5.1 rtsz=944) CHLORIDE (BEAKER) (test 106 meq/L 98-107 nblu=251) CO2 (BEAKER) (test 26 meq/L 22-29 xblc=977) BLOOD UREA NITROGEN 11 mg/dL 7-21 (BEAKER) (test wrwj=441) CREATININE (BEAKER) (test 0.83 mg/dL 0.57-1.25 qlxn=148) GLUCOSE RANDOM (BEAKER) 139 mg/dL 70-105 (test wqsa=676) CALCIUM (BEAKER) (test 8.5 mg/dL 8.4-10.2 efro=236) EGFR (BEAKER) (test 83 mL/min/1.73 sq m ESTIMATED GFR IS NOT plwa=6633) ACCURATE CREATININE CLEARANCE IN PREDICTING GLOMERULAR FILTRATION RATE. ESTIMATED GFR IS NOT APPLICABLE FOR DIALYSIS PATIENTS. POCT-GLUCOSE [id number] 21:10:00 Test Item Value Reference Range Comments POC-GLUCOSE METER (BEAKER) 103 mg/dL 70-110 TESTED AT [address] (test ckzz=7570) [place] [id number] POCT-GLUCOSE [id number] 17:51:00 Test Item Value Reference Range Comments POC-GLUCOSE METER (BEAKER) 138 mg/dL 70-110 TESTED AT [address] (test whye=5151) [place] [id number] POCT-GLUCOSE [id number] 12:45:00 Test Item Value Reference Range Comments POC-GLUCOSE METER (BEAKER) 294 mg/dL 70-110 TESTED AT [address] (test zfyz=0976) [place] [address] CBC WITH PLATELET COUNT + MANUAL [id number] 07:04:00 Test Item Value Reference Range Comments WHITE BLOOD CELL COUNT (BEAKER) (test espf=243) 10.7 K/ L 4.0-10.0 RED BLOOD CELL COUNT (BEAKER) (test waix=922) 3.91 M/ L 4.00-5.00 HEMOGLOBIN (BEAKER) (test vxdz=798) 12.9 GM/DL 12.0-15.0 HEMATOCRIT (BEAKER) (test wnni=567) 39.0 % 36.0-45.0 MEAN CORPUSCULAR VOLUME (BEAKER) (test rxeo=486) 99.6 fL 82.0-99.0 MEAN CORPUSCULAR HEMOGLOBIN (BEAKER) (test 32.9 pg 27.0-33.0 etai=605) MEAN CORPUSCULAR HEMOGLOBIN CONC (BEAKER) (test 33.0 GM/DL 32.0-36.0 yolm=902) RED CELL DISTRIBUTION WIDTH (BEAKER) (test 12.8 % 10.3-14.2 acjo=671) PLATELET COUNT (BEAKER) (test dycr=525) 251 K/CU MM 150-430 MEAN PLATELET VOLUME (BEAKER) (test mjpr=115) 8.1 fL 6.5-10.5 NUCLEATED RED BLOOD CELLS (BEAKER) (test 0 /100 WBC 0-0 hfgl=937) NEUTROPHILS RELATIVE PERCENT (BEAKER) (test 80 % lgxw=541) LYMPHOCYTES RELATIVE PERCENT (BEAKER) (test 14 % pipd=234) MONOCYTES RELATIVE PERCENT (BEAKER) (test 6 % ukez=940) EOSINOPHILS RELATIVE PERCENT (BEAKER) (test 0 % haxo=432) BASOPHILS RELATIVE PERCENT (BEAKER) (test 0 % lbkp=856) NEUTROPHILS ABSOLUTE COUNT (BEAKER) (test 8.55 K/ L 1.80-8.00 njpl=282) LYMPHOCYTES ABSOLUTE COUNT (BEAKER) (test 1.46 K/ L 1.48-4.50 hczw=840) MONOCYTES ABSOLUTE COUNT (BEAKER) (test 0.60 K/ L 0.00-1.30 fiwq=600) EOSINOPHILS ABSOLUTE COUNT (BEAKER) (test 0.05 K/ L 0.00-0.50 ujvv=451) BASOPHILS ABSOLUTE COUNT (BEAKER) (test 0.02 K/ L 0.00-0.20 waic=722) 0.00(MANUAL DIFFERENTIAL)2016-06-14 07:04:00 Test Item Value Reference Range Comments TOTAL COUNTED (BEAKER) (test eddq=5870) PLT MORPHOLOGY (BEAKER) (test yiyl=101) Normal RBC MORPHOLOGY (BEAKER) (test hqlu=174) Normal ATYPICAL LYMPHS(BEAKER) (test yhum=2040) Present BASIC METABOLIC [id number] 05:05:00 Test Item Value Reference Range Comments SODIUM (BEAKER) (test 140 meq/L 136-145 sdpu=351) POTASSIUM (BEAKER) (test 3.8 meq/L 3.5-5.1 nttt=274) CHLORIDE (BEAKER) (test 107 meq/L 98-107 qkiz=177) CO2 (BEAKER) (test 26 meq/L 22-29 zetd=207) BLOOD UREA NITROGEN 13 mg/dL 7-21 (BEAKER) (test eiwq=747) CREATININE (BEAKER) (test 0.80 mg/dL 0.57-1.25 yaxl=875) GLUCOSE RANDOM (BEAKER) 177 mg/dL 70-105 (test hsul=966) CALCIUM (BEAKER) (test 8.3 mg/dL 8.4-10.2 cwae=434) EGFR (BEAKER) (test 86 mL/min/1.73 sq m ESTIMATED GFR IS NOT prkp=1451) ACCURATE CREATININE CLEARANCE IN PREDICTING GLOMERULAR FILTRATION RATE. ESTIMATED GFR IS NOT APPLICABLE FOR DIALYSIS PATIENTS. [id number] 04:48:00 Test Item Value Reference Range Comments PROTIME (BEAKER) (test twsy=475) 13.0 seconds 11.7-14.7 INR (BEAKER) (test unfi=302) 1.0 <=5.9 PARTIAL THROMBOPLASTIN TIME (BEAKER) (test 31.8 seconds 22.5-36.0 zhsp=045) RECOMMENDED COUMADIN/WARFARIN INR THERAPY RANGESSTANDARD DOSE: 2.0 - 3.0 Includes: PROPHYLAXIS forvenous thrombosis, systemic embolization; TREATMENT for venous thrombosis and/or pulmonary embolus.HIGH RISK: Target INR is 2.5-3.5 for patients with mechanical heart valves.POCT-GLUCOSE [id number] 22:11:00 Test Item Value Reference Range Comments POC-GLUCOSE METER (BEAKER) 200 mg/dL 70-110 TESTED AT [address] (test rbah=9349) [place] [address] POCT-GLUCOSE [id number] 17:13:00 Test Item Value Reference Range Comments POC-GLUCOSE METER (BEAKER) 225 mg/dL 70-110 TESTED AT [address] (test gcqr=3775) [place] [id number] POCT-GLUCOSE [id number] 12:22:00 Test Item Value Reference Range Comments POC-GLUCOSE METER (BEAKER) 309 mg/dL 70-110 Notified PAULA BERGER/TESTED AT [facility] (test cbse=9916) [address] [place], [place] [id number] URINALYSIS W/ [id number] 12:09:00 Test Item Value Reference Range Comments COLOR (BEAKER) (test vbzd=690) Yellow CLARITY (BEAKER) (test qwgr=111) Clear SPECIFIC GRAVITY UA (BEAKER) (test ivlh=842) 1.035 1.001-1.035 PH UA (BEAKER) (test fhwl=238) 5.0 5.0-8.0 PROTEIN UA (BEAKER) (test kmws=553) Negative Negative GLUCOSE UA (BEAKER) (test skbr=158) 150 mg/dL Negative KETONES UA (BEAKER) (test kkvz=763) Negative Negative BILIRUBIN UA (BEAKER) (test gneb=894) Negative Negative BLOOD UA (BEAKER) (test tufg=639) Small Negative NITRITE UA (BEAKER) (test nsuv=293) Negative Negative LEUKOCYTE ESTERASE UA (BEAKER) (test scir=425) Negative Negative UROBILINOGEN UA (BEAKER) (test cmmg=840) 0.2 mg/dL 0.2-1.0 RBC UA (BEAKER) (test ldgd=934) 6 /HPF WBC UA (BEAKER) (test bwdk=890) 1 /HPF MUCUS (BEAKER) (test gjqx=1515) Rare SQUAMOUS EPITHELIAL (BEAKER) (test xxqh=509) 6 /HPF HYALINE CASTS (BEAKER) (test iyua=374) 2 /LPF SOURCE(BEAKER) (test dejs=1665) POCT-GLUCOSE [id number] 07:58:00 Test Item Value Reference Range Comments POC-GLUCOSE METER (BEAKER) 236 mg/dL 70-110 TESTED AT [address] (test aqgk=3078) [facility] [address] BASIC METABOLIC [id number] 04:10:00 Test Item Value Reference Range Comments SODIUM (BEAKER) (test 138 meq/L 136-145 zihv=086) POTASSIUM (BEAKER) (test 4.2 meq/L 3.5-5.1 mipb=499) CHLORIDE (BEAKER) (test 107 meq/L 98-107 uhcv=177) CO2 (BEAKER) (test 22 meq/L 22-29 kbok=438) BLOOD UREA NITROGEN 20 mg/dL 7-21 (BEAKER) (test azbo=148) CREATININE (BEAKER) (test 1.00 mg/dL 0.57-1.25 fbjp=095) GLUCOSE RANDOM (BEAKER) 246 mg/dL 70-105 (test mlmn=674) CALCIUM (BEAKER) (test 8.8 mg/dL 8.4-10.2 vdcz=866) EGFR (BEAKER) (test 67 mL/min/1.73 sq m ESTIMATED GFR IS NOT ixch=1731) ACCURATE CREATININE CLEARANCE IN PREDICTING GLOMERULAR FILTRATION RATE. ESTIMATED GFR IS NOT APPLICABLE FOR DIALYSIS PATIENTS. [id number] 04:03:00 Test Item Value Reference Range Comments PROTIME (BEAKER) (test qezj=081) 12.8 seconds 11.7-14.7 INR (BEAKER) (test ebnu=912) 1.0 <=5.9 PARTIAL THROMBOPLASTIN TIME (BEAKER) (test 29.6 seconds 22.5-36.0 mqmw=946) RECOMMENDED COUMADIN/WARFARIN INR THERAPY RANGESSTANDARD DOSE: 2.0 - 3.0 Includes: PROPHYLAXIS forvenous thrombosis, systemic embolization; TREATMENT for venous thrombosis and/or pulmonary embolus.HIGH RISK: Target INR is 2.5-3.5 for patients with mechanical heart valves.CBC WITH PLATELET COUNT + MANUAL [id number] 03:58:00 Test Item Value Reference Range Comments WHITE BLOOD CELL COUNT (BEAKER) (test kxtv=739) 14.3 K/ L 4.0-10.0 RED BLOOD CELL COUNT (BEAKER) (test lnaw=989) 4.03 M/ L 4.00-5.00 HEMOGLOBIN (BEAKER) (test xwnf=317) 13.1 GM/DL 12.0-15.0 HEMATOCRIT (BEAKER) (test gpgb=376) 39.7 % 36.0-45.0 MEAN CORPUSCULAR VOLUME (BEAKER) (test yiqq=565) 98.5 fL 82.0-99.0 MEAN CORPUSCULAR HEMOGLOBIN (BEAKER) (test 32.6 pg 27.0-33.0 yqvj=826) MEAN CORPUSCULAR HEMOGLOBIN CONC (BEAKER) (test 33.1 GM/DL 32.0-36.0 opbv=580) RED CELL DISTRIBUTION WIDTH (BEAKER) (test 12.9 % 10.3-14.2 tqln=239) PLATELET COUNT (BEAKER) (test jkqq=049) 271 K/CU MM 150-430 MEAN PLATELET VOLUME (BEAKER) (test yylb=378) 7.7 fL 6.5-10.5 NUCLEATED RED BLOOD CELLS (BEAKER) (test 0 /100 WBC 0-0 rgbd=410) NEUTROPHILS RELATIVE PERCENT (BEAKER) (test 87 % dhiu=207) LYMPHOCYTES RELATIVE PERCENT (BEAKER) (test 7 % zddx=530) MONOCYTES RELATIVE PERCENT (BEAKER) (test 6 % qomj=517) EOSINOPHILS RELATIVE PERCENT (BEAKER) (test 0 % pejw=947) BASOPHILS RELATIVE PERCENT (BEAKER) (test 0 % fqte=955) NEUTROPHILS ABSOLUTE COUNT (BEAKER) (test 12.40 K/ L 1.80-8.00 nyiq=606) LYMPHOCYTES ABSOLUTE COUNT (BEAKER) (test 1.06 K/ L 1.48-4.50 xher=841) MONOCYTES ABSOLUTE COUNT (BEAKER) (test 0.81 K/ L 0.00-1.30 tpjk=783) EOSINOPHILS ABSOLUTE COUNT (BEAKER) (test 0.01 K/ L 0.00-0.50 btuf=301) BASOPHILS ABSOLUTE COUNT (BEAKER) (test 0.03 K/ L 0.00-0.20 ssky=304) [id number]-GLUCOSE [id number] 22:17:00 Test Item Value Reference Range Comments POC-GLUCOSE METER (BEAKER) 260 mg/dL 70-110 TESTED AT [address] (test goqy=6972) [place] [address] POCT-GLUCOSE [id number] 12:11:00 Test Item Value Reference Range Comments POC-GLUCOSE METER (BEAKER) 278 mg/dL 70-110 TESTED AT [address] (test ikjs=9887) [place] [id number] HEMOGLOBIN [id number] 10:46:00 Test Item Value Reference Range Comments HEMOGLOBIN A1C (BEAKER) (test mvdp=223) 9.7 % 4.3-6.1 DC\S\Delta Check\S\NONEPOCT-GLUCOSE [id number] 07:15:00 Test Item Value Reference Range Comments POC-GLUCOSE METER (BEAKER) 283 mg/dL 70-110 TESTED AT [address] (test kxdx=3209) [place] [id number] BASIC METABOLIC [id number] 04:43:00 Test Item Value Reference Range Comments SODIUM (BEAKER) (test 136 meq/L 136-145 ywuw=977) POTASSIUM (BEAKER) (test 4.0 meq/L 3.5-5.1 vhye=559) CHLORIDE (BEAKER) (test 102 meq/L 98-107 pbhe=897) CO2 (BEAKER) (test 27 meq/L 22-29 htwy=085) BLOOD UREA NITROGEN 18 mg/dL 7-21 (BEAKER) (test zzes=906) CREATININE (BEAKER) (test 0.95 mg/dL 0.57-1.25 jjdw=044) GLUCOSE RANDOM (BEAKER) 256 mg/dL 70-105 (test gdvz=509) CALCIUM (BEAKER) (test 9.0 mg/dL 8.4-10.2 fojm=128) EGFR (BEAKER) (test 71 mL/min/1.73 sq m ESTIMATED GFR IS NOT mhfe=9075) ACCURATE CREATININE CLEARANCE IN PREDICTING GLOMERULAR FILTRATION RATE. ESTIMATED GFR IS NOT APPLICABLE FOR DIALYSIS PATIENTS. CBC WITH PLATELET COUNT + MANUAL [id number] 04:28:00 Test Item Value Reference Range Comments WHITE BLOOD CELL COUNT (BEAKER) (test uath=712) 11.6 K/ L 4.0-10.0 RED BLOOD CELL COUNT (BEAKER) (test vmwb=538) 4.15 M/ L 4.00-5.00 HEMOGLOBIN (BEAKER) (test ehvw=513) 13.3 GM/DL 12.0-15.0 HEMATOCRIT (BEAKER) (test qrlg=247) 40.5 % 36.0-45.0 MEAN CORPUSCULAR VOLUME (BEAKER) (test wyhu=176) 97.6 fL 82.0-99.0 MEAN CORPUSCULAR HEMOGLOBIN (BEAKER) (test 32.1 pg 27.0-33.0 usme=282) MEAN CORPUSCULAR HEMOGLOBIN CONC (BEAKER) (test 32.9 GM/DL 32.0-36.0 iulu=675) RED CELL DISTRIBUTION WIDTH (BEAKER) (test 12.7 % 10.3-14.2 nxlg=638) PLATELET COUNT (BEAKER) (test imua=668) 263 K/CU MM 150-430 MEAN PLATELET VOLUME (BEAKER) (test dnbg=973) 8.2 fL 6.5-10.5 NUCLEATED RED BLOOD CELLS (BEAKER) (test 0 /100 WBC 0-0 jbpe=544) NEUTROPHILS RELATIVE PERCENT (BEAKER) (test 90 % szak=813) LYMPHOCYTES RELATIVE PERCENT (BEAKER) (test 8 % gnaq=452) MONOCYTES RELATIVE PERCENT (BEAKER) (test 2 % dyly=188) EOSINOPHILS RELATIVE PERCENT (BEAKER) (test 0 % vgep=175) BASOPHILS RELATIVE PERCENT (BEAKER) (test 0 % mvoe=177) NEUTROPHILS ABSOLUTE COUNT (BEAKER) (test 10.40 K/ L 1.80-8.00 wosd=559) LYMPHOCYTES ABSOLUTE COUNT (BEAKER) (test 0.95 K/ L 1.48-4.50 oxmv=906) MONOCYTES ABSOLUTE COUNT (BEAKER) (test 0.20 K/ L 0.00-1.30 pmqx=101) EOSINOPHILS ABSOLUTE COUNT (BEAKER) (test 0.02 K/ L 0.00-0.50 wpql=938) BASOPHILS ABSOLUTE COUNT (BEAKER) (test 0.02 K/ L 0.00-0.20 rkfn=362) 0.00PT/[id number] 04:25:00 Test Item Value Reference Range Comments PROTIME (BEAKER) (test kqkn=400) 13.7 seconds 11.7-14.7 INR (BEAKER) (test zyxr=338) 1.1 <=5.9 PARTIAL THROMBOPLASTIN TIME (BEAKER) (test 32.8 seconds 22.5-36.0 uzhf=805) RECOMMENDED COUMADIN/WARFARIN INR THERAPY RANGESSTANDARD DOSE: 2.0 - 3.0 Includes: PROPHYLAXIS forvenous thrombosis, systemic embolization; TREATMENT for venous thrombosis and/or pulmonary embolus.HIGH RISK: Target INR is 2.5-3.5 for patients with mechanical heart valves.POCT-GLUCOSE [id number] 02:47:00 Test Item Value Reference Range Comments POC-GLUCOSE METER (BEAKER) 278 mg/dL 70-110 TESTED AT [address] (test nyxk=7684) [place] [id number] POCT-GLUCOSE [id number] 22:12:00 Test Item Value Reference Range Comments POC-GLUCOSE METER (BEAKER) 258 mg/dL 70-110 TESTED AT [address] (test wgxh=2076) [place] [id number] 15:44:00 Test Item Value Reference Range Comments MAGNESIUM (BEAKER) (test 2.1 mg/dL 1.6-2.6 Specimen slightly hemolyzed cggq=144) [id number] 15:44:00 Test Item Value Reference Range Comments PHOSPHORUS (BEAKER) (test 2.9 mg/dL 2.3-4.7 Specimen slightly hemolyzed htes=666) BASIC METABOLIC [id number] 15:44:00 Test Item Value Reference Range Comments SODIUM (BEAKER) (test 137 meq/L 136-145 zgwi=287) POTASSIUM (BEAKER) (test 4.4 meq/L 3.5-5.1 Specimen slightly iefe=235) hemolyzed CHLORIDE (BEAKER) (test 99 meq/L 98-107 vmoq=307) CO2 (BEAKER) (test 27 meq/L 22-29 faww=951) BLOOD UREA NITROGEN 13 mg/dL 7-21 (BEAKER) (test vdfj=728) CREATININE (BEAKER) (test 0.96 mg/dL 0.57-1.25 Specimen slightly hfid=929) hemolyzed GLUCOSE RANDOM (BEAKER) 250 mg/dL 70-105 (test cqqq=902) CALCIUM (BEAKER) (test 9.6 mg/dL 8.4-10.2 oyah=492) EGFR (BEAKER) (test 70 mL/min/1.73 sq m ESTIMATED GFR IS NOT qalf=8171) ACCURATE CREATININE CLEARANCE IN PREDICTING GLOMERULAR FILTRATION RATE. ESTIMATED GFR IS NOT APPLICABLE FOR DIALYSIS PATIENTS. CBC WITH PLATELET COUNT + MANUAL [id number] 15:39:00 Test Item Value Reference Range Comments WHITE BLOOD CELL COUNT (BEAKER) (test fofu=390) 9.5 K/ L 4.0-10.0 RED BLOOD CELL COUNT (BEAKER) (test onda=797) 4.18 M/ L 4.00-5.00 HEMOGLOBIN (BEAKER) (test zxsk=095) 14.0 GM/DL 12.0-15.0 HEMATOCRIT (BEAKER) (test vxkp=866) 40.7 % 36.0-45.0 MEAN CORPUSCULAR VOLUME (BEAKER) (test ipuk=844) 97.3 fL 82.0-99.0 MEAN CORPUSCULAR HEMOGLOBIN (BEAKER) (test 33.4 pg 27.0-33.0 oefb=654) MEAN CORPUSCULAR HEMOGLOBIN CONC (BEAKER) (test 34.3 GM/DL 32.0-36.0 ygkn=051) RED CELL DISTRIBUTION WIDTH (BEAKER) (test 12.6 % 10.3-14.2 velf=557) PLATELET COUNT (BEAKER) (test ukqy=390) 253 K/CU MM 150-430 MEAN PLATELET VOLUME (BEAKER) (test iivj=992) 8.1 fL 6.5-10.5 NUCLEATED RED BLOOD CELLS (BEAKER) (test 0 /100 WBC 0-0 biek=586) NEUTROPHILS RELATIVE PERCENT (BEAKER) (test 91 % zwkk=972) LYMPHOCYTES RELATIVE PERCENT (BEAKER) (test 8 % llom=737) MONOCYTES RELATIVE PERCENT (BEAKER) (test 1 % bkzx=381) EOSINOPHILS RELATIVE PERCENT (BEAKER) (test 0 % suhk=833) BASOPHILS RELATIVE PERCENT (BEAKER) (test 0 % wslj=507) NEUTROPHILS ABSOLUTE COUNT (BEAKER) (test 8.66 K/ L 1.80-8.00 tpay=732) LYMPHOCYTES ABSOLUTE COUNT (BEAKER) (test 0.78 K/ L 1.48-4.50 vedf=157) MONOCYTES ABSOLUTE COUNT (BEAKER) (test 0.07 K/ L 0.00-1.30 unfv=695) EOSINOPHILS ABSOLUTE COUNT (BEAKER) (test 0.01 K/ L 0.00-0.50 hmwq=365) BASOPHILS ABSOLUTE COUNT (BEAKER) (test 0.01 K/ L 0.00-0.20 mzvg=619) [id number] 15:39:00 Test Item Value Reference Range Comments PROTIME (BEAKER) (test wkva=891) 12.7 seconds 11.7-14.7 INR (BEAKER) (test klxx=134) 1.0 <=5.9 PARTIAL THROMBOPLASTIN TIME (BEAKER) (test 32.8 seconds 22.5-36.0 wxnb=808) RECOMMENDED COUMADIN/WARFARIN INR THERAPY RANGESSTANDARD DOSE: 2.0 - 3.0 Includes: PROPHYLAXIS forvenous thrombosis, systemic embolization; TREATMENT for venous thrombosis and/or pulmonary embolus.HIGH RISK: Target INR is 2.5-3.5 for patients with mechanical heart valves.
== END 2019-02-07 18:27 | disposition home or self-care (01) ==
LOC: ER 16:59
DX: R04.0 Epistaxis (principal); I10 Essential (primary) hypertension; E11.9 Type 2 diabetes mellitus without complications; I48.91 Unspecified atrial fibrillation; I50.9 Heart failure, unspecified; I25.2 Old myocardial infarction; Z79.01 Long term (current) use of anticoagulants; Z79.82 Long term (current) use of aspirin; Z88.5 Allergy status to narcotic agent; Z91.048 Other nonmedicinal substance allergy status
CPT/HCPCS: 99283

== ENCOUNTER 2019-04-13 12:10 | Inpatient (IN) | payer OTHER ==
--- OUTSIDE RECORDS SUMMARY | 2019-04-13 12:25 | XMS REPORT ---
:1945 Author Organization [facility] Address [address] [place] [address] Care Team Providers Name Role Phone DIANA SANCHEZ Unavailable Unavailable ALVARO OKEEFE Unavailable Unavailable JENNIFER [...] Value Reference Range Comments MAGNESIUM (BEAKER) (test cehn=472) 1.9 mg/dL 1.6-2.6 BASIC METABOLIC [id number] 06:43:00 Test Item Value Reference Range Comments SODIUM (BEAKER) (test 140 meq/L 136-145 tazy=267) POTASSIUM (BEAKER) (test 4.2 meq/L 3.5-5.1 jder=301) CHLORIDE (BEAKER) (test 106 meq/L 98-107 vqwl=638) CO2 (BEAKER) (test 28 meq/L 22-29 xbfh=425) BLOOD UREA NITROGEN 33 mg/dL 7-21 (BEAKER) (test arxp=542) CREATININE (BEAKER) (test 1.51 mg/dL 0.57-1.25 hqgg=637) GLUCOSE RANDOM (BEAKER) 77 mg/dL 70-105 (test przo=342) CALCIUM (BEAKER) (test 9.5 mg/dL 8.4-10.2 mbhp=317) EGFR (BEAKER) (test 41 mL/min/1.73 sq m ESTIMATED GFR IS NOT vltk=5903) ACCURATE CREATININE CLEARANCE IN PREDICTING GLOMERULAR FILTRATION RATE. ESTIMATED GFR IS NOT APPLICABLE FOR DIALYSIS PATIENTS. B-TYPE NATRIURETIC FACTOR (BNP)2019-01-24 06:12:00 Test Item Value Reference Range Comments B-TYPE NATRIURETIC PEPTIDE (BEAKER) (test 1700 pg/mL 0-100 cria=250) OXYGEN SATURATION, [id number] 06:04:00 Test Item Value Reference Range Comments O2 SATURATION (MEASURED) (BEAKER) (test iiod=3124) 98.2 % CBC W/PLT COUNT & AUTO [id number] 05:55:00 Test Item Value Reference Range Comments WHITE BLOOD CELL COUNT (BEAKER) (test jamd=840) 5.5 K/ L 3.5-10.5 RED BLOOD CELL COUNT (BEAKER) (test fefu=539) 2.53 M/ L 3.93-5.22 HEMOGLOBIN (BEAKER) (test aqid=566) 8.3 GM/DL 11.2-15.7 HEMATOCRIT (BEAKER) (test rgfj=133) 27.4 % 34.1-44.9 MEAN CORPUSCULAR VOLUME (BEAKER) (test gjqr=814) 108.3 fL 79.4-94.8 MEAN CORPUSCULAR HEMOGLOBIN (BEAKER) (test 32.8 pg 25.6-32.2 zhmn=155) MEAN CORPUSCULAR HEMOGLOBIN CONC (BEAKER) (test 30.3 GM/DL 32.2-35.5 izmb=213) RED CELL DISTRIBUTION WIDTH (BEAKER) (test 13.4 % 11.7-14.4 gpeq=959) PLATELET COUNT (BEAKER) (test uiul=753) 243 K/CU MM 150-450 MEAN PLATELET VOLUME (BEAKER) (test bieu=013) 9.9 fL 9.4-12.3 NUCLEATED RED BLOOD CELLS (BEAKER) (test 0 /100 WBC 0-0 iilb=916) NEUTROPHILS RELATIVE PERCENT (BEAKER) (test 72 % huei=809) LYMPHOCYTES RELATIVE PERCENT (BEAKER) (test 16 % ithr=279) MONOCYTES RELATIVE PERCENT (BEAKER) (test 7 % uwmg=085) EOSINOPHILS RELATIVE PERCENT (BEAKER) (test 4 % vruw=795) BASOPHILS RELATIVE PERCENT (BEAKER) (test 1 % essa=682) NEUTROPHILS ABSOLUTE COUNT (BEAKER) (test 3.94 K/ L 1.56-6.13 dlqz=525) LYMPHOCYTES ABSOLUTE COUNT (BEAKER) (test 0.85 K/ L 1.18-3.74 bylj=800) MONOCYTES ABSOLUTE COUNT (BEAKER) (test 0.36 K/ L 0.24-0.36 qeqm=086) EOSINOPHILS ABSOLUTE COUNT (BEAKER) (test 0.24 K/ L 0.04-0.36 qqxb=602) BASOPHILS ABSOLUTE COUNT (BEAKER) (test 0.05 K/ L 0.01-0.08 lsxp=967) IMMATURE GRANULOCYTES-RELATIVE PERCENT (BEAKER) 0 % 0-1 (test mdpy=0476) URINE PROTEIN ELECTROPHORESIS, [id number] 15:25:00 Test Item Value Reference Range Comments PROTEIN, URINE (BEAKER) (test 10 mg/dL 0-14 flcm=2563) ALBUMIN URINE ELP (BEAKER) 51.2 % (test brdp=4320) GAMMA GLOBULIN URINE (BEAKER) 48.8 % (test pweq=3327) UPEP, ID-438 (BEAKER) (test Urine protein study consistent wjve=0620) with glomerular dysfunction. No monoclonal bands detected. [id number] (BEAKER) Анна Encarnacion MD (electronic (test drlp=0544) signature) PROTEIN ELECTROPHORESIS, [id number] 13:35:00 Test Item Value Reference Range Comments ALBUMIN FRACTION (BEAKER) 3.5 g/dL 3.5-5.5 (test jgtf=727) ALPHA 1 FRACTION (BEAKER) 0.3 g/dL 0.2-0.4 (test kkyw=447) ALPHA 2 FRACTION (BEAKER) 0.7 g/dL 0.5-0.9 (test cwxn=509) BETA FRACTION (BEAKER) 0.9 g/dL 0.6-1.1 (test hedx=379) GAMMA GLOBULIN FRACTION 1.6 g/dL 0.7-1.7 (BEAKER) (test bnza=775) INTERPRETATION-119 (BEAKER) Normal electrophoretic pattern. (test nngu=4678) [id number] Анна Encarnacion MD (electronic (BEAKER) (test gafu=1802) signature) PROTEIN TOTAL SERUM, SPEP 7.0 gm/dL 6.0-8.3 (BEAKER) (test bwof=6357) [id number] 07:25:00 Test Item Value Reference Range Comments PHOSPHORUS (BEAKER) (test rerd=604) 3.5 mg/dL 2.3-4.7 [id number] 07:25:00 Test Item Value Reference Range Comments MAGNESIUM (BEAKER) (test oqum=484) 2.0 mg/dL 1.6-2.6 BASIC METABOLIC [id number] 07:25:00 Test Item Value Reference Range Comments SODIUM (BEAKER) (test 139 meq/L 136-145 ombq=702) POTASSIUM (BEAKER) (test 4.1 meq/L 3.5-5.1 wekw=951) CHLORIDE (BEAKER) (test 105 meq/L 98-107 ivnp=575) CO2 (BEAKER) (test 27 meq/L 22-29 lulq=703) BLOOD UREA NITROGEN 36 mg/dL 7-21 (BEAKER) (test ljqv=977) CREATININE (BEAKER) (test 1.64 mg/dL 0.57-1.25 xudx=638) GLUCOSE RANDOM (BEAKER) 86 mg/dL 70-105 (test dxbi=211) CALCIUM (BEAKER) (test 9.3 mg/dL 8.4-10.2 klfw=822) EGFR (BEAKER) (test 37 mL/min/1.73 sq m ESTIMATED GFR IS NOT intt=1590) ACCURATE CREATININE CLEARANCE IN PREDICTING GLOMERULAR FILTRATION RATE. ESTIMATED GFR IS NOT APPLICABLE FOR DIALYSIS PATIENTS. B-TYPE NATRIURETIC FACTOR (BNP)2019-01-23 06:22:00 Test Item Value Reference Range Comments B-TYPE NATRIURETIC PEPTIDE (BEAKER) (test 841 pg/mL 0-100 yzdv=641) CALCIUM, [id number] 06:06:00 Test Item Value Reference Range Comments CALCIUM IONIZED (BEAKER) (test raxo=785) 1.24 mmol/L 1.12-1.27 PH, BLOOD (BEAKER) (test nfmy=8883) 7.39 OXYGEN SATURATION, [id number] 06:05:00 Test Item Value Reference Range Comments O2 SATURATION (MEASURED) (BEAKER) (test qntp=5982) 93.6 % CBC W/PLT COUNT & AUTO [id number] 05:54:00 Test Item Value Reference Range Comments WHITE BLOOD CELL COUNT (BEAKER) (test ayab=601) 5.4 K/ L 3.5-10.5 RED BLOOD CELL COUNT (BEAKER) (test aysk=939) 2.56 M/ L 3.93-5.22 HEMOGLOBIN (BEAKER) (test dnkt=267) 8.5 GM/DL 11.2-15.7 HEMATOCRIT (BEAKER) (test epep=094) 27.8 % 34.1-44.9 MEAN CORPUSCULAR VOLUME (BEAKER) (test hcfn=308) 108.6 fL 79.4-94.8 MEAN CORPUSCULAR HEMOGLOBIN (BEAKER) (test 33.2 pg 25.6-32.2 kslz=453) MEAN CORPUSCULAR HEMOGLOBIN CONC (BEAKER) (test 30.6 GM/DL 32.2-35.5 qqse=825) RED CELL DISTRIBUTION WIDTH (BEAKER) (test 13.2 % 11.7-14.4 gvgh=741) PLATELET COUNT (BEAKER) (test iozb=280) 251 K/CU MM 150-450 MEAN PLATELET VOLUME (BEAKER) (test ptav=034) 9.4 fL 9.4-12.3 NUCLEATED RED BLOOD CELLS (BEAKER) (test 0 /100 WBC 0-0 pofr=420) NEUTROPHILS RELATIVE PERCENT (BEAKER) (test 70 % wrba=323) LYMPHOCYTES RELATIVE PERCENT (BEAKER) (test 16 % rvpg=253) MONOCYTES RELATIVE PERCENT (BEAKER) (test 7 % amzu=053) EOSINOPHILS RELATIVE PERCENT (BEAKER) (test 6 % ecuq=467) BASOPHILS RELATIVE PERCENT (BEAKER) (test 1 % bwns=605) NEUTROPHILS ABSOLUTE COUNT (BEAKER) (test 3.75 K/ L 1.56-6.13 odpy=240) LYMPHOCYTES ABSOLUTE COUNT (BEAKER) (test 0.88 K/ L 1.18-3.74 heks=712) MONOCYTES ABSOLUTE COUNT (BEAKER) (test 0.35 K/ L 0.24-0.36 abwv=619) EOSINOPHILS ABSOLUTE COUNT (BEAKER) (test 0.30 K/ L 0.04-0.36 njtv=169) BASOPHILS ABSOLUTE COUNT (BEAKER) (test 0.05 K/ L 0.01-0.08 qiwl=647) IMMATURE GRANULOCYTES-RELATIVE PERCENT (BEAKER) 0 % 0-1 (test aocg=7892) B-TYPE NATRIURETIC FACTOR (BNP)2019-01-22 06:13:00 Test Item Value Reference Range Comments B-TYPE NATRIURETIC PEPTIDE (BEAKER) (test 811 pg/mL 0-100 jwyj=605) [id number] 05:57:00 Test Item Value Reference Range Comments MAGNESIUM (BEAKER) (test zvyq=932) 2.1 mg/dL 1.6-2.6 BASIC METABOLIC [id number] 05:57:00 Test Item Value Reference Range Comments SODIUM (BEAKER) (test 138 meq/L 136-145 ltba=333) POTASSIUM (BEAKER) (test 4.2 meq/L 3.5-5.1 mfpj=832) CHLORIDE (BEAKER) (test 104 meq/L 98-107 addt=708) CO2 (BEAKER) (test 26 meq/L 22-29 qbkk=903) BLOOD UREA NITROGEN 36 mg/dL 7-21 (BEAKER) (test tvka=221) CREATININE (BEAKER) (test 1.92 mg/dL 0.57-1.25 ivjl=911) GLUCOSE RANDOM (BEAKER) 82 mg/dL 70-105 (test nqcm=299) CALCIUM (BEAKER) (test 9.6 mg/dL 8.4-10.2 nfni=085) EGFR (BEAKER) (test 31 mL/min/1.73 sq m ESTIMATED GFR IS NOT jpwz=1410) ACCURATE CREATININE CLEARANCE IN PREDICTING GLOMERULAR FILTRATION RATE. ESTIMATED GFR IS NOT APPLICABLE FOR DIALYSIS PATIENTS. OXYGEN SATURATION, [id number] 05:47:00 Test Item Value Reference Range Comments O2 SATURATION (MEASURED) (BEAKER) (test ekna=0690) 34.2 % CBC W/PLT COUNT & AUTO [id number] 05:31:00 Test Item Value Reference Range Comments WHITE BLOOD CELL COUNT (BEAKER) (test oyqt=166) 5.8 K/ L 3.5-10.5 RED BLOOD CELL COUNT (BEAKER) (test ksei=920) 2.63 M/ L 3.93-5.22 HEMOGLOBIN (BEAKER) (test dxqx=644) 8.9 GM/DL 11.2-15.7 HEMATOCRIT (BEAKER) (test rjqy=954) 28.3 % 34.1-44.9 MEAN CORPUSCULAR VOLUME (BEAKER) (test ktvk=810) 107.6 fL 79.4-94.8 MEAN CORPUSCULAR HEMOGLOBIN (BEAKER) (test 33.8 pg 25.6-32.2 evbk=365) MEAN CORPUSCULAR HEMOGLOBIN CONC (BEAKER) (test 31.4 GM/DL 32.2-35.5 jvef=761) RED CELL DISTRIBUTION WIDTH (BEAKER) (test 13.2 % 11.7-14.4 krih=054) PLATELET COUNT (BEAKER) (test wuyx=472) 263 K/CU MM 150-450 MEAN PLATELET VOLUME (BEAKER) (test cdzr=867) 9.3 fL 9.4-12.3 NUCLEATED RED BLOOD CELLS (BEAKER) (test 0 /100 WBC 0-0 drsh=602) NEUTROPHILS RELATIVE PERCENT (BEAKER) (test 67 % dtic=345) LYMPHOCYTES RELATIVE PERCENT (BEAKER) (test 19 % ocai=609) MONOCYTES RELATIVE PERCENT (BEAKER) (test 6 % svwl=058) EOSINOPHILS RELATIVE PERCENT (BEAKER) (test 6 % ujmp=980) BASOPHILS RELATIVE PERCENT (BEAKER) (test 1 % fmsz=747) NEUTROPHILS ABSOLUTE COUNT (BEAKER) (test 3.93 K/ L 1.56-6.13 qzos=810) LYMPHOCYTES ABSOLUTE COUNT (BEAKER) (test 1.12 K/ L 1.18-3.74 ebtb=718) MONOCYTES ABSOLUTE COUNT (BEAKER) (test 0.36 K/ L 0.24-0.36 wvmt=375) EOSINOPHILS ABSOLUTE COUNT (BEAKER) (test 0.36 K/ L 0.04-0.36 bixc=540) BASOPHILS ABSOLUTE COUNT (BEAKER) (test 0.06 K/ L 0.01-0.08 xzja=349) IMMATURE GRANULOCYTES-RELATIVE PERCENT (BEAKER) 0 % 0-1 (test nkkc=8900) CALCIUM, [id number] 06:00:00 Test Item Value Reference Range Comments CALCIUM IONIZED (BEAKER) (test zoii=078) 1.19 mmol/L 1.12-1.27 PH, BLOOD (BEAKER) (test gyoa=5385) 7.35 OXYGEN SATURATION, [id number] 05:59:00 Test Item Value Reference Range Comments O2 SATURATION (MEASURED) (BEAKER) (test maff=0808) 96.0 % B-TYPE NATRIURETIC FACTOR (BNP)2019-01-21 05:31:00 Test Item Value Reference Range Comments B-TYPE NATRIURETIC PEPTIDE (BEAKER) (test 568 pg/mL 0-100 apxm=382) BASIC METABOLIC [id number] 05:26:00 Test Item Value Reference Range Comments SODIUM (BEAKER) (test 136 meq/L 136-145 mbgm=095) POTASSIUM (BEAKER) (test 4.0 meq/L 3.5-5.1 ykeb=679) CHLORIDE (BEAKER) (test 102 meq/L 98-107 ktrp=530) CO2 (BEAKER) (test 25 meq/L 22-29 ubzr=679) BLOOD UREA NITROGEN 40 mg/dL 7-21 (BEAKER) (test qonb=378) CREATININE (BEAKER) (test 1.89 mg/dL 0.57-1.25 gnrx=890) GLUCOSE RANDOM (BEAKER) 83 mg/dL 70-105 (test clsp=383) CALCIUM (BEAKER) (test 9.2 mg/dL 8.4-10.2 fzcn=980) EGFR (BEAKER) (test 32 mL/min/1.73 sq m ESTIMATED GFR IS NOT vcpq=8621) ACCURATE CREATININE CLEARANCE IN PREDICTING GLOMERULAR FILTRATION RATE. ESTIMATED GFR IS NOT APPLICABLE FOR DIALYSIS PATIENTS. CBC W/PLT COUNT & AUTO [id number] 05:13:00 Test Item Value Reference Range Comments WHITE BLOOD CELL COUNT (BEAKER) (test cwnp=762) 5.8 K/ L 3.5-10.5 RED BLOOD CELL COUNT (BEAKER) (test knkf=175) 2.59 M/ L 3.93-5.22 HEMOGLOBIN (BEAKER) (test qork=528) 8.4 GM/DL 11.2-15.7 HEMATOCRIT (BEAKER) (test dmwx=798) 27.6 % 34.1-44.9 MEAN CORPUSCULAR VOLUME (BEAKER) (test slxx=492) 106.6 fL 79.4-94.8 MEAN CORPUSCULAR HEMOGLOBIN (BEAKER) (test 32.4 pg 25.6-32.2 vslj=358) MEAN CORPUSCULAR HEMOGLOBIN CONC (BEAKER) (test 30.4 GM/DL 32.2-35.5 rmmd=770) RED CELL DISTRIBUTION WIDTH (BEAKER) (test 12.9 % 11.7-14.4 hfhh=622) PLATELET COUNT (BEAKER) (test mqrm=184) 254 K/CU MM 150-450 MEAN PLATELET VOLUME (BEAKER) (test agkj=746) 9.7 fL 9.4-12.3 NUCLEATED RED BLOOD CELLS (BEAKER) (test 0 /100 WBC 0-0 jmdl=600) NEUTROPHILS RELATIVE PERCENT (BEAKER) (test 72 % ftqh=836) LYMPHOCYTES RELATIVE PERCENT (BEAKER) (test 16 % nhgz=692) MONOCYTES RELATIVE PERCENT (BEAKER) (test 6 % zwdp=656) EOSINOPHILS RELATIVE PERCENT (BEAKER) (test 5 % jfad=297) BASOPHILS RELATIVE PERCENT (BEAKER) (test 1 % yesv=056) NEUTROPHILS ABSOLUTE COUNT (BEAKER) (test 4.16 K/ L 1.56-6.13 gzhg=708) LYMPHOCYTES ABSOLUTE COUNT (BEAKER) (test 0.91 K/ L 1.18-3.74 lman=919) MONOCYTES ABSOLUTE COUNT (BEAKER) (test 0.36 K/ L 0.24-0.36 zfor=274) EOSINOPHILS ABSOLUTE COUNT (BEAKER) (test 0.31 K/ L 0.04-0.36 xesv=863) BASOPHILS ABSOLUTE COUNT (BEAKER) (test 0.04 K/ L 0.01-0.08 vwpg=784) IMMATURE GRANULOCYTES-RELATIVE PERCENT (BEAKER) 0 % 0-1 (test gfwn=1317) [id number] 05:49:00 Test Item Value Reference Range Comments PHOSPHORUS (BEAKER) (test yorm=797) 3.9 mg/dL 2.3-4.7 [id number] 05:49:00 Test Item Value Reference Range Comments MAGNESIUM (BEAKER) (test yuku=628) 2.0 mg/dL 1.6-2.6 BASIC METABOLIC [id number] 05:49:00 Test Item Value Reference Range Comments SODIUM (BEAKER) (test 137 meq/L 136-145 kxll=716) POTASSIUM (BEAKER) (test 4.2 meq/L 3.5-5.1 kddx=372) CHLORIDE (BEAKER) (test 102 meq/L 98-107 iuhu=495) CO2 (BEAKER) (test 27 meq/L 22-29 aslh=127) BLOOD UREA NITROGEN 45 mg/dL 7-21 (BEAKER) (test marg=863) CREATININE (BEAKER) (test 1.94 mg/dL 0.57-1.25 nsbh=634) GLUCOSE RANDOM (BEAKER) 105 mg/dL 70-105 (test rfhd=088) CALCIUM (BEAKER) (test 9.2 mg/dL 8.4-10.2 iwpl=460) EGFR (BEAKER) (test 31 mL/min/1.73 sq m ESTIMATED GFR IS NOT xbaz=4242) ACCURATE CREATININE CLEARANCE IN PREDICTING GLOMERULAR FILTRATION RATE. ESTIMATED GFR IS NOT APPLICABLE FOR DIALYSIS PATIENTS. CALCIUM, [id number] 05:41:00 Test Item Value Reference Range Comments CALCIUM IONIZED (BEAKER) (test xunz=723) 1.22 mmol/L 1.12-1.27 PH, BLOOD (BEAKER) (test lniu=6844) 7.36 B-TYPE NATRIURETIC FACTOR (BNP)2019-01-20 05:33:00 Test Item Value Reference Range Comments B-TYPE NATRIURETIC PEPTIDE (BEAKER) (test 411 pg/mL 0-100 shnd=911) CBC W/PLT COUNT & AUTO [id number] 05:15:00 Test Item Value Reference Range Comments WHITE BLOOD CELL COUNT (BEAKER) (test evsl=209) 5.5 K/ L 3.5-10.5 RED BLOOD CELL COUNT (BEAKER) (test hgfz=494) 2.46 M/ L 3.93-5.22 HEMOGLOBIN (BEAKER) (test qbog=793) 8.1 GM/DL 11.2-15.7 HEMATOCRIT (BEAKER) (test vtka=085) 26.4 % 34.1-44.9 MEAN CORPUSCULAR VOLUME (BEAKER) (test xvmn=836) 107.3 fL 79.4-94.8 MEAN CORPUSCULAR HEMOGLOBIN (BEAKER) (test 32.9 pg 25.6-32.2 sudd=698) MEAN CORPUSCULAR HEMOGLOBIN CONC (BEAKER) (test 30.7 GM/DL 32.2-35.5 exfc=912) RED CELL DISTRIBUTION WIDTH (BEAKER) (test 12.8 % 11.7-14.4 izwu=455) PLATELET COUNT (BEAKER) (test jixw=991) 236 K/CU MM 150-450 MEAN PLATELET VOLUME (BEAKER) (test auwm=030) 9.9 fL 9.4-12.3 NUCLEATED RED BLOOD CELLS (BEAKER) (test 0 /100 WBC 0-0 ercx=316) NEUTROPHILS RELATIVE PERCENT (BEAKER) (test 71 % mjug=706) LYMPHOCYTES RELATIVE PERCENT (BEAKER) (test 17 % pltv=879) MONOCYTES RELATIVE PERCENT (BEAKER) (test 7 % quyv=815) EOSINOPHILS RELATIVE PERCENT (BEAKER) (test 4 % fiwg=542) BASOPHILS RELATIVE PERCENT (BEAKER) (test 1 % ohnl=451) NEUTROPHILS ABSOLUTE COUNT (BEAKER) (test 3.87 K/ L 1.56-6.13 ilaa=319) LYMPHOCYTES ABSOLUTE COUNT (BEAKER) (test 0.92 K/ L 1.18-3.74 kuxs=111) MONOCYTES ABSOLUTE COUNT (BEAKER) (test 0.38 K/ L 0.24-0.36 ciyw=586) EOSINOPHILS ABSOLUTE COUNT (BEAKER) (test 0.24 K/ L 0.04-0.36 gvkn=992) BASOPHILS ABSOLUTE COUNT (BEAKER) (test 0.05 K/ L 0.01-0.08 acuw=682) IMMATURE GRANULOCYTES-RELATIVE PERCENT (BEAKER) 0 % 0-1 (test snjb=3035) OXYGEN SATURATION, [id number] 05:13:00 Test Item Value Reference Range Comments O2 SATURATION (MEASURED) (BEAKER) (test ebth=5322) 85.5 % CBC W/PLT COUNT & AUTO [id number] 07:13:00 Test Item Value Reference Range Comments WHITE BLOOD CELL COUNT (BEAKER) (test mkcn=245) 5.4 K/ L 3.5-10.5 RED BLOOD CELL COUNT (BEAKER) (test arxf=884) 2.55 M/ L 3.93-5.22 HEMOGLOBIN (BEAKER) (test werr=064) 8.4 GM/DL 11.2-15.7 HEMATOCRIT (BEAKER) (test gmis=221) 26.9 % 34.1-44.9 MEAN CORPUSCULAR VOLUME (BEAKER) (test nebc=478) 105.5 fL 79.4-94.8 MEAN CORPUSCULAR HEMOGLOBIN (BEAKER) (test 32.9 pg 25.6-32.2 qolj=096) MEAN CORPUSCULAR HEMOGLOBIN CONC (BEAKER) (test 31.2 GM/DL 32.2-35.5 naoe=068) RED CELL DISTRIBUTION WIDTH (BEAKER) (test 12.9 % 11.7-14.4 fouk=684) PLATELET COUNT (BEAKER) (test unyt=363) 251 K/CU MM 150-450 MEAN PLATELET VOLUME (BEAKER) (test sduy=828) 10.3 fL 9.4-12.3 NUCLEATED RED BLOOD CELLS (BEAKER) (test 0 /100 WBC 0-0 dzkn=921) NEUTROPHILS RELATIVE PERCENT (BEAKER) (test 66 % sape=501) LYMPHOCYTES RELATIVE PERCENT (BEAKER) (test 21 % limx=568) MONOCYTES RELATIVE PERCENT (BEAKER) (test 7 % oprh=308) EOSINOPHILS RELATIVE PERCENT (BEAKER) (test 4 % kqkg=783) BASOPHILS RELATIVE PERCENT (BEAKER) (test 1 % yjyh=304) NEUTROPHILS ABSOLUTE COUNT (BEAKER) (test 3.55 K/ L 1.56-6.13 brbk=521) LYMPHOCYTES ABSOLUTE COUNT (BEAKER) (test 1.14 K/ L 1.18-3.74 uorm=976) MONOCYTES ABSOLUTE COUNT (BEAKER) (test 0.39 K/ L 0.24-0.36 sjra=014) EOSINOPHILS ABSOLUTE COUNT (BEAKER) (test 0.20 K/ L 0.04-0.36 ifrg=557) BASOPHILS ABSOLUTE COUNT (BEAKER) (test 0.06 K/ L 0.01-0.08 xlye=510) IMMATURE GRANULOCYTES-RELATIVE PERCENT (BEAKER) 0 % 0-1 (test crxc=5832) [id number] 06:22:00 Test Item Value Reference Range Comments PHOSPHORUS (BEAKER) (test zfcy=650) 3.8 mg/dL 2.3-4.7 [id number] 06:22:00 Test Item Value Reference Range Comments MAGNESIUM (BEAKER) (test cxck=699) 2.2 mg/dL 1.6-2.6 COMPREHENSIVE METABOLIC [id number] 06:22:00 Test Item Value Reference Range Comments TOTAL PROTEIN (BEAKER) 7.3 gm/dL 6.0-8.3 (test sfai=882) ALBUMIN (BEAKER) (test 3.8 g/dL 3.5-5.0 ipuw=6638) ALKALINE PHOSPHATASE 43 U/L 40-150 (BEAKER) (test ghnw=769) BILIRUBIN TOTAL (BEAKER) 0.3 mg/dL 0.2-1.2 (test loli=690) SODIUM (BEAKER) (test 135 meq/L 136-145 gesc=458) POTASSIUM (BEAKER) (test 4.0 meq/L 3.5-5.1 tlgc=670) CHLORIDE (BEAKER) (test 99 meq/L 98-107 gacp=632) CO2 (BEAKER) (test 31 meq/L 22-29 pqtb=756) BLOOD UREA NITROGEN 40 mg/dL 7-21 (BEAKER) (test hsra=069) CREATININE (BEAKER) (test 1.95 mg/dL 0.57-1.25 evqa=292) GLUCOSE RANDOM (BEAKER) 99 mg/dL 70-105 (test ykrw=845) CALCIUM (BEAKER) (test 9.9 mg/dL 8.4-10.2 jxil=552) AST (SGOT) (BEAKER) (test 15 U/L 5-34 idtx=577) ALT (SGPT) (BEAKER) (test 10 U/L 6-55 nydo=789) EGFR (BEAKER) (test 31 mL/min/1.73 sq m ESTIMATED GFR IS NOT xyuz=4669) ACCURATE CREATININE CLEARANCE IN PREDICTING GLOMERULAR FILTRATION RATE. ESTIMATED GFR IS NOT APPLICABLE FOR DIALYSIS PATIENTS. VITAMIN D, [id number] 06:03:00 Test Item Value Reference Range Comments VITAMIN D 25-OH (BEAKER) (test obnl=1894) 42.3 ng/mL 6.6-49.9 Effective 01/12/2017: Reference Range ChangeNew: 6.6-49.9 ng/mL Previous: 13.0 -47.8 ng/mLRecommended Vitamin D Target Range: 30.0-40.0 ng/mLB-TYPE NATRIURETIC FACTOR (BNP)2019-01-19 05:18:00 Test Item Value Reference Range Comments B-TYPE NATRIURETIC PEPTIDE (BEAKER) (test 490 pg/mL 0-100 xqbd=093) PTH, [id number] 05:16:00 Test Item Value Reference Range Comments PARATHYROID HORMONE INTACT (BEAKER) (test 151.4 pg/mL 8.5-72.5 flrl=529) CALCIUM, [id number] 04:20:00 Test Item Value Reference Range Comments CALCIUM IONIZED (BEAKER) (test jxqb=578) 1.30 mmol/L 1.12-1.27 PH, BLOOD (BEAKER) (test fngu=5269) 7.37 OXYGEN SATURATION, [id number] 04:00:00 Test Item Value Reference Range Comments O2 SATURATION (MEASURED) (BEAKER) (test ozsw=0585) 86.1 % CREATININE, RANDOM [id number] 12:21:00 Test Item Value Reference Range Comments CREATININE URINE (BEAKER) (test cqaq=699) 110.5 mg/dL Reference Range: No NormalsPROTEIN, RANDOM [id number] 12:21:00 Test Item Value Reference Range Comments PROTEIN, URINE (BEAKER) (test mhap=7375) 14 mg/dL 0-14 SODIUM, RANDOM [id number] 12:21:00 Test Item Value Reference Range Comments SODIUM URINE (BEAKER) (test wwhe=823) 34 meq/L Reference Range: No NormalsCALCIUM, [id number] 10:17:00 Test Item Value Reference Range Comments CALCIUM IONIZED (BEAKER) (test kbwy=472) 1.29 mmol/L 1.12-1.27 PH, BLOOD (BEAKER) (test yofr=6404) 7.31 OXYGEN SATURATION, [id number] 10:16:00 Test Item Value Reference Range Comments O2 SATURATION (MEASURED) (BEAKER) (test xxat=8571) 69.6 % POCT-GLUCOSE [id number] 08:28:00 Test Item Value Reference Range Comments POC-GLUCOSE METER (BEAKER) 90 mg/dL 70-110 TESTED AT [facility] [address] [facility] (test wsnl=3957) [facility] [address] BASIC METABOLIC [id number] 07:28:00 Test Item Value Reference Range Comments SODIUM (BEAKER) (test 134 meq/L 136-145 jylf=905) POTASSIUM (BEAKER) (test 4.2 meq/L 3.5-5.1 vyom=983) CHLORIDE (BEAKER) (test 100 meq/L 98-107 aggw=331) CO2 (BEAKER) (test 26 meq/L 22-29 xbqo=123) BLOOD UREA NITROGEN 43 mg/dL 7-21 (BEAKER) (test adqf=517) CREATININE (BEAKER) (test 1.95 mg/dL 0.57-1.25 eooi=143) GLUCOSE RANDOM (BEAKER) 130 mg/dL 70-105 (test hnlm=650) CALCIUM (BEAKER) (test 9.8 mg/dL 8.4-10.2 sfzd=070) EGFR (BEAKER) (test 31 mL/min/1.73 sq m ESTIMATED GFR IS NOT tmty=0695) ACCURATE CREATININE CLEARANCE IN PREDICTING GLOMERULAR FILTRATION RATE. ESTIMATED GFR IS NOT APPLICABLE FOR DIALYSIS PATIENTS. URIC [id number] 07:10:00 Test Item Value Reference Range Comments URIC ACID (BEAKER) (test jrlz=865) 6.4 mg/dL 2.6-7.2 [id number] 07:10:00 Test Item Value Reference Range Comments MAGNESIUM (BEAKER) (test zoti=055) 2.2 mg/dL 1.6-2.6 [id number] 07:10:00 Test Item Value Reference Range Comments PHOSPHORUS (BEAKER) (test kdux=155) 3.7 mg/dL 2.3-4.7 CREATINE KINASE (CK)2019-01-18 07:10:00 Test Item Value Reference Range Comments CREATINE KINASE TOTAL (BEAKER) (test mxwm=705) 46 U/L 29-200 B-TYPE NATRIURETIC FACTOR (BNP)2019-01-18 06:18:00 Test Item Value Reference Range Comments B-TYPE NATRIURETIC PEPTIDE (BEAKER) (test 723 pg/mL 0-100 hrlj=268) CBC W/PLT COUNT & AUTO [id number] 05:54:00 Test Item Value Reference Range Comments WHITE BLOOD CELL COUNT (BEAKER) (test cqyy=045) 5.6 K/ L 3.5-10.5 RED BLOOD CELL COUNT (BEAKER) (test rktq=318) 2.59 M/ L 3.93-5.22 HEMOGLOBIN (BEAKER) (test abgh=643) 8.5 GM/DL 11.2-15.7 HEMATOCRIT (BEAKER) (test foth=267) 27.4 % 34.1-44.9 MEAN CORPUSCULAR VOLUME (BEAKER) (test qmsh=310) 105.8 fL 79.4-94.8 MEAN CORPUSCULAR HEMOGLOBIN (BEAKER) (test 32.8 pg 25.6-32.2 jaji=082) MEAN CORPUSCULAR HEMOGLOBIN CONC (BEAKER) (test 31.0 GM/DL 32.2-35.5 suaw=119) RED CELL DISTRIBUTION WIDTH (BEAKER) (test 12.7 % 11.7-14.4 trlg=984) PLATELET COUNT (BEAKER) (test oqmw=920) 240 K/CU MM 150-450 MEAN PLATELET VOLUME (BEAKER) (test dolc=303) 10.2 fL 9.4-12.3 NUCLEATED RED BLOOD CELLS (BEAKER) (test 0 /100 WBC 0-0 kfnq=930) NEUTROPHILS RELATIVE PERCENT (BEAKER) (test 71 % bblk=413) LYMPHOCYTES RELATIVE PERCENT (BEAKER) (test 17 % iwpz=298) MONOCYTES RELATIVE PERCENT (BEAKER) (test 8 % cosd=141) EOSINOPHILS RELATIVE PERCENT (BEAKER) (test 2 % iduc=165) BASOPHILS RELATIVE PERCENT (BEAKER) (test 1 % pwlu=534) NEUTROPHILS ABSOLUTE COUNT (BEAKER) (test 4.02 K/ L 1.56-6.13 nfjk=318) LYMPHOCYTES ABSOLUTE COUNT (BEAKER) (test 0.97 K/ L 1.18-3.74 afyk=077) MONOCYTES ABSOLUTE COUNT (BEAKER) (test 0.46 K/ L 0.24-0.36 mdye=232) EOSINOPHILS ABSOLUTE COUNT (BEAKER) (test 0.12 K/ L 0.04-0.36 byuy=913) BASOPHILS ABSOLUTE COUNT (BEAKER) (test 0.04 K/ L 0.01-0.08 lscj=574) IMMATURE GRANULOCYTES-RELATIVE PERCENT (BEAKER) 0 % 0-1 (test wuku=2240) U/S, RENAL, [id number] 05:23:00[facility]- Dr. Levy/ Marcus Reddy. [facility] is in network. ppo no referral needed 07/2018cpt 17714 no auth required Reason for exam:->AKIShould this [...] further evaluation with MRI. Signed: Maryana Spann MDRepcamilla Verified Date/Time: 01/18/2019 05:23:17 RAD , CHEST, 1 VIEW, NON [id number] 04:49:00[facility]- Dr. Levy/ Marcus Reddy. [facility]ano is in network. ppo no referral needed 07/2018cpt 25605 no auth required Reason for exam:->CHFShould this [...] Maryana Spann Verified Date/Time: 01/18/2019 04:49:09 HEMOGLOBIN [id number] 22:46 :00 Test Item Value Reference Range Comments HEMOGLOBIN A1C (BEAKER) (test mfhk=645) 5.1 % 4.3-6.1 POCT-GLUCOSE [id number] 21:47:00 Test Item Value Reference Range Comments POC-GLUCOSE METER (BEAKER) 163 mg/dL 70-110 TESTED AT [facility] [address] [facility] (test fpoy=8353) [facility] [address] CBC W/PLT COUNT & AUTO [id number] 20:11:00 Test Item Value Reference Range Comments WHITE BLOOD CELL COUNT (BEAKER) (test esdz=529) 7.8 K/ L 3.5-10.5 RED BLOOD CELL COUNT (BEAKER) (test wzyc=318) 3.01 M/ L 3.93-5.22 HEMOGLOBIN (BEAKER) (test feyx=596) 10.0 GM/DL 11.2-15.7 HEMATOCRIT (BEAKER) (test uurc=101) 31.4 % 34.1-44.9 MEAN CORPUSCULAR VOLUME (BEAKER) (test cjhs=198) 104.3 fL 79.4-94.8 MEAN CORPUSCULAR HEMOGLOBIN (BEAKER) (test 33.2 pg 25.6-32.2 lfmb=837) MEAN CORPUSCULAR HEMOGLOBIN CONC (BEAKER) (test 31.8 GM/DL 32.2-35.5 jcuh=200) RED CELL DISTRIBUTION WIDTH (BEAKER) (test 12.9 % 11.7-14.4 yglv=890) PLATELET COUNT (BEAKER) (test elbl=118) 298 K/CU MM 150-450 MEAN PLATELET VOLUME (BEAKER) (test zloc=414) 9.9 fL 9.4-12.3 NUCLEATED RED BLOOD CELLS (BEAKER) (test 0 /100 WBC 0-0 hynf=186) NEUTROPHILS RELATIVE PERCENT (BEAKER) (test 82 % wdki=488) LYMPHOCYTES RELATIVE PERCENT (BEAKER) (test 11 % twob=338) MONOCYTES RELATIVE PERCENT (BEAKER) (test 5 % vawb=832) EOSINOPHILS RELATIVE PERCENT (BEAKER) (test 1 % plqx=822) BASOPHILS RELATIVE PERCENT (BEAKER) (test 1 % jrxv=461) NEUTROPHILS ABSOLUTE COUNT (BEAKER) (test 6.35 K/ L 1.56-6.13 qfka=447) LYMPHOCYTES ABSOLUTE COUNT (BEAKER) (test 0.87 K/ L 1.18-3.74 ngxj=283) MONOCYTES ABSOLUTE COUNT (BEAKER) (test 0.39 K/ L 0.24-0.36 mwmg=735) EOSINOPHILS ABSOLUTE COUNT (BEAKER) (test 0.08 K/ L 0.04-0.36 diih=953) BASOPHILS ABSOLUTE COUNT (BEAKER) (test 0.04 K/ L 0.01-0.08 pkld=776) IMMATURE GRANULOCYTES-RELATIVE PERCENT (BEAKER) 0 % 0-1 (test eggs=4014) POCT-GLUCOSE [id number] 18:09:00 Test Item Value Reference Range Comments POC-GLUCOSE METER (BEAKER) 140 mg/dL 70-110 TESTED AT [address] (test injx=5799) [facility] [address] OXYGEN SATURATION, [id number] 15:05:00 Test Item Value Reference Range Comments O2 SATURATION (MEASURED) (BEAKER) (test cskw=2322) 43.7 % [id number] 13:15:00 Test Item Value Reference Range Comments FERRITIN (BEAKER) (test puiy=935) 257 ng/mL 5-275 VITAMIN B12 AND [id number] 13:15:00 Test Item Value Reference Range Comments VITAMIN B12 (BEAKER) (test fwlt=272) 1120 pg/mL 213-816 FOLATE (BEAKER) (test komg=925) 18.7 ng/mL >=7.0 COMPREHENSIVE METABOLIC [id number] 12:50:00 Test Item Value Reference Range Comments TOTAL PROTEIN (BEAKER) 8.3 gm/dL 6.0-8.3 (test role=054) ALBUMIN (BEAKER) (test 4.3 g/dL 3.5-5.0 dige=0281) ALKALINE PHOSPHATASE 52 U/L 40-150 (BEAKER) (test sopg=251) BILIRUBIN TOTAL (BEAKER) 0.3 mg/dL 0.2-1.2 (test yfzd=136) SODIUM (BEAKER) (test 137 meq/L 136-145 zhbf=880) POTASSIUM (BEAKER) (test 4.9 meq/L 3.5-5.1 bcow=729) CHLORIDE (BEAKER) (test 99 meq/L 98-107 zjoz=656) CO2 (BEAKER) (test 30 meq/L 22-29 dljz=720) BLOOD UREA NITROGEN 44 mg/dL 7-21 (BEAKER) (test wfxp=078) CREATININE (BEAKER) (test 2.12 mg/dL 0.57-1.25 tiju=750) GLUCOSE RANDOM (BEAKER) 110 mg/dL 70-105 (test vxrp=954) CALCIUM (BEAKER) (test 10.6 mg/dL 8.4-10.2 vaet=603) AST (SGOT) (BEAKER) (test 18 U/L 5-34 xidr=801) ALT (SGPT) (BEAKER) (test 14 U/L 6-55 fuib=097) EGFR (BEAKER) (test 28 mL/min/1.73 sq m ESTIMATED GFR IS NOT jkak=1028) ACCURATE CREATININE CLEARANCE IN PREDICTING GLOMERULAR FILTRATION RATE. ESTIMATED GFR IS NOT APPLICABLE FOR DIALYSIS PATIENTS. B-TYPE NATRIURETIC FACTOR (BNP)2019-01-17 12:45:00 Test Item Value Reference Range Comments B-TYPE NATRIURETIC PEPTIDE (BEAKER) (test 939 pg/mL 0-100 cacw=057) IRON, TIBC, % SAT. (WITHOUT FERRITIN)2019-01-17 12:39:00 Test Item Value Reference Range Comments IRON (BEAKER) (test jdxn=572) 56.0 ug/dL 40.0-160.0 TOTAL IRON BINDING CAPACITY (BEAKER) (test 264 ug/dL 250-450 lxgq=023) IRON % SATURATION (2) (BEAKER) (test hwpf=4803) 21 % 20-55 OXYGEN SATURATION, [id number] 12:23:00 Test Item Value Reference Range Comments O2 SATURATION (MEASURED) (BEAKER) (test aero=3060) 20.5 % CBC W/PLT COUNT & AUTO [id number] 12:17:00 Test Item Value Reference Range Comments WHITE BLOOD CELL COUNT (BEAKER) (test fdgs=764) 6.1 K/ L 3.5-10.5 RED BLOOD CELL COUNT (BEAKER) (test eekd=793) 3.09 M/ L 3.93-5.22 HEMOGLOBIN (BEAKER) (test rwug=614) 10.1 GM/DL 11.2-15.7 HEMATOCRIT (BEAKER) (test jwwc=930) 32.5 % 34.1-44.9 MEAN CORPUSCULAR VOLUME (BEAKER) (test oqfr=109) 105.2 fL 79.4-94.8 MEAN CORPUSCULAR HEMOGLOBIN (BEAKER) (test 32.7 pg 25.6-32.2 pqjm=980) MEAN CORPUSCULAR HEMOGLOBIN CONC (BEAKER) (test 31.1 GM/DL 32.2-35.5 fkxn=166) RED CELL DISTRIBUTION WIDTH (BEAKER) (test 12.9 % 11.7-14.4 wumh=839) PLATELET COUNT (BEAKER) (test wokz=289) 279 K/CU MM 150-450 MEAN PLATELET VOLUME (BEAKER) (test anhi=205) 10.0 fL 9.4-12.3 NUCLEATED RED BLOOD CELLS (BEAKER) (test 0 /100 WBC 0-0 vcen=578) NEUTROPHILS RELATIVE PERCENT (BEAKER) (test 81 % rtrw=124) LYMPHOCYTES RELATIVE PERCENT (BEAKER) (test 11 % thgr=553) MONOCYTES RELATIVE PERCENT (BEAKER) (test 6 % bzvs=603) EOSINOPHILS RELATIVE PERCENT (BEAKER) (test 2 % lwje=663) BASOPHILS RELATIVE PERCENT (BEAKER) (test 1 % wjog=812) NEUTROPHILS ABSOLUTE COUNT (BEAKER) (test 4.94 K/ L 1.56-6.13 zjrw=285) LYMPHOCYTES ABSOLUTE COUNT (BEAKER) (test 0.67 K/ L 1.18-3.74 mpdb=993) MONOCYTES ABSOLUTE COUNT (BEAKER) (test 0.35 K/ L 0.24-0.36 euzg=253) EOSINOPHILS ABSOLUTE COUNT (BEAKER) (test 0.10 K/ L 0.04-0.36 phuj=031) BASOPHILS ABSOLUTE COUNT (BEAKER) (test 0.05 K/ L 0.01-0.08 lpjg=351) IMMATURE GRANULOCYTES-RELATIVE PERCENT (BEAKER) 0 % 0-1 (test xksb=8532) CT, CTA, [id number] 18:12:00[facility]- Dr. Levy/ Marcus Reddy. chano is in network. ppo no referral needed 07/2018cpt 01298 no auth required 2018Addendum BeginsREPORT STATUS:A Addendum: I agree with the previously described non vascular findings. Signed: George Rincon MDReport Verified Date/Time: 11/01/2018 18:12:19 Reading Location: [place] [address] Angio Body Reading RoomAddendum EndsFINAL REPORT CT [...] is seen outside the stent, inside the [place] aorta (essentially present Type I endoleak). In [...] An addendum will be dictated by the [employer] Radiologist regarding the nonvascular findings. Signed: Bryan Mahajanort Verified Date/Time:10/31/2018 16:01:37 Reading Location: [place] [id number] Cardiology MRI CT, CTA [id number] 18:12:00[facility]- Dr. Levy/ Marcus Reddy. chano is in network. ppo no referral needed 07/2018cpt 73116 no auth required 10/2018Addendum BeginsREPORT STATUS:A Addendum: I agree with the previously described non vascular findings. Signed: George Rincon Verified Date/Time: 11/01/2018 18:12:19 Reading Location: [facility] [address] Angio Body Reading RoomAddendum EndsFINAL REPORT [...] is seen outside the stent, inside the [place] aorta (essentially present Type I endoleak). In [...] An addendum will be dictated by the [employer] Radiologist regarding the nonvascular findings. Signed: Bryan Mahajanepcamilla Verified Date/Time:10/31/2018 16:01:37 Reading Location: [place] [id number] Cardiology MRI POCT- [id number] 12:24:00 Test Item Value Reference Range Comments POC-CREATININE (BEAKER) 1.6 mg/dL 0.6-1.3 TESTED AT [facility] [address] [facility] (test xfhx=6091) [facility] [address] POC-EGFR (BEAKER) (test 38 mL/min/1.73M2 jzcy=2963) B-TYPE NATRIURETIC FACTOR (BNP)2018-10-17 12:58:00 Test Item Value Reference Range Comments B-TYPE NATRIURETIC PEPTIDE (BEAKER) (test 3381 pg/mL 0-100 vzpt=406) BASIC METABOLIC [id number] 12:52:00 Test Item Value Reference Range Comments SODIUM (BEAKER) (test 138 meq/L 136-145 dvve=487) POTASSIUM (BEAKER) (test 3.6 meq/L 3.5-5.1 aqks=450) CHLORIDE (BEAKER) (test 100 meq/L 98-107 dztg=770) CO2 (BEAKER) (test 30 meq/L 22-29 moch=226) BLOOD UREA NITROGEN 21 mg/dL 7-21 (BEAKER) (test dffp=207) CREATININE (BEAKER) (test 1.49 mg/dL 0.57-1.25 yowr=950) GLUCOSE RANDOM (BEAKER) 182 mg/dL 70-105 (test mwgn=241) CALCIUM (BEAKER) (test 9.7 mg/dL 8.4-10.2 yhax=942) EGFR (BEAKER) (test 42 mL/min/1.73 sq m ESTIMATED GFR IS NOT wwjq=5558) ACCURATE CREATININE CLEARANCE IN PREDICTING GLOMERULAR FILTRATION RATE. ESTIMATED GFR IS NOT APPLICABLE FOR DIALYSIS PATIENTS. CBC W/PLT COUNT & AUTO [id number] 12:31:00 Test Item Value Reference Range Comments WHITE BLOOD CELL COUNT (BEAKER) (test riip=246) 5.9 K/ L 3.5-10.5 RED BLOOD CELL COUNT (BEAKER) (test staf=234) 2.76 M/ L 3.93-5.22 HEMOGLOBIN (BEAKER) (test ivrd=641) 8.9 GM/DL 11.2-15.7 HEMATOCRIT (BEAKER) (test wauo=881) 28.3 % 34.1-44.9 MEAN CORPUSCULAR VOLUME (BEAKER) (test imqj=050) 102.5 fL 79.4-94.8 MEAN CORPUSCULAR HEMOGLOBIN (BEAKER) (test 32.2 pg 25.6-32.2 dztq=421) MEAN CORPUSCULAR HEMOGLOBIN CONC (BEAKER) (test 31.4 GM/DL 32.2-35.5 pkun=838) RED CELL DISTRIBUTION WIDTH (BEAKER) (test 12.8 % 11.7-14.4 gzdu=126) PLATELET COUNT (BEAKER) (test hwqy=046) 226 K/CU MM 150-450 MEAN PLATELET VOLUME (BEAKER) (test lkgh=945) 9.9 fL 9.4-12.3 NUCLEATED RED BLOOD CELLS (BEAKER) (test 0 /100 WBC 0-0 thdn=553) NEUTROPHILS RELATIVE PERCENT (BEAKER) (test 80 % cdml=272) LYMPHOCYTES RELATIVE PERCENT (BEAKER) (test 12 % xuub=272) MONOCYTES RELATIVE PERCENT (BEAKER) (test 5 % xwjo=340) EOSINOPHILS RELATIVE PERCENT (BEAKER) (test 2 % qrhf=640) BASOPHILS RELATIVE PERCENT (BEAKER) (test 1 % ulbk=175) NEUTROPHILS ABSOLUTE COUNT (BEAKER) (test 4.75 K/ L 1.56-6.13 oeyq=581) LYMPHOCYTES ABSOLUTE COUNT (BEAKER) (test 0.71 K/ L 1.18-3.74 sawq=434) MONOCYTES ABSOLUTE COUNT (BEAKER) (test 0.31 K/ L 0.24-0.36 eqfb=212) EOSINOPHILS ABSOLUTE COUNT (BEAKER) (test 0.09 K/ L 0.04-0.36 yylx=115) BASOPHILS ABSOLUTE COUNT (BEAKER) (test 0.05 K/ L 0.01-0.08 swry=647) IMMATURE GRANULOCYTES-RELATIVE PERCENT (BEAKER) 0 % 0-1 (test kgtq=7560) HEMOGLOBIN [id number] 13:20:00 Test Item Value Reference Range Comments HEMOGLOBIN A1C (BEAKER) (test kncf=716) 5.0 % 4.3-6.1 TSH/FREE T4 IF [id number] 11:57:00 Test Item Value Reference Range Comments THYROID STIMULATING HORMONE (BEAKER) (test 0.46 uIU/mL 0.35-4.94 herk=189) B-TYPE NATRIURETIC FACTOR (BNP)2018-09-13 11:43:00 Test Item Value Reference Range Comments B-TYPE NATRIURETIC PEPTIDE (BEAKER) (test 2747 pg/mL 0-100 npah=033) URIC [id number] 11:37:00 Test Item Value Reference Range Comments URIC ACID (BEAKER) (test hovg=992) 5.5 mg/dL 2.6-7.2 [id number] 11:37:00 Test Item Value Reference Range Comments MAGNESIUM (BEAKER) (test tiwc=099) 2.0 mg/dL 1.6-2.6 COMPREHENSIVE METABOLIC [id number] 11:37:00 Test Item Value Reference Range Comments TOTAL PROTEIN (BEAKER) 7.6 gm/dL 6.0-8.3 (test jzth=706) ALBUMIN (BEAKER) (test 3.9 g/dL 3.5-5.0 apec=3225) ALKALINE PHOSPHATASE 78 U/L 40-150 (BEAKER) (test nvah=222) BILIRUBIN TOTAL (BEAKER) 0.6 mg/dL 0.2-1.2 (test qjok=626) SODIUM (BEAKER) (test 139 meq/L 136-145 bjyf=783) POTASSIUM (BEAKER) (test 4.4 meq/L 3.5-5.1 yqlz=169) CHLORIDE (BEAKER) (test 98 meq/L 98-107 rhss=757) CO2 (BEAKER) (test 34 meq/L 22-29 bruz=253) BLOOD UREA NITROGEN 17 mg/dL 7-21 (BEAKER) (test zqgo=623) CREATININE (BEAKER) (test 1.37 mg/dL 0.57-1.25 genj=220) GLUCOSE RANDOM (BEAKER) 115 mg/dL 70-105 (test xzjs=941) CALCIUM (BEAKER) (test 10.0 mg/dL 8.4-10.2 xuox=661) AST (SGOT) (BEAKER) (test 20 U/L 5-34 axha=194) ALT (SGPT) (BEAKER) (test 16 U/L 6-55 mhlx=605) EGFR (BEAKER) (test 46 mL/min/1.73 sq m ESTIMATED GFR IS NOT pbsn=2120) ACCURATE CREATININE CLEARANCE IN PREDICTING GLOMERULAR FILTRATION RATE. ESTIMATED GFR IS NOT APPLICABLE FOR DIALYSIS PATIENTS. LIPID [id number] 11:37:00 Test Item Value Reference Range Comments TRIGLYCERIDES (BEAKER) (test edqu=669) 82 mg/dL CHOLESTEROL (BEAKER) (test irqt=845) 185 mg/dL HDL CHOLESTEROL (BEAKER) (test hteo=039) 111 mg/dL LDL CHOLESTEROL CALCULATED (BEAKER) (test 58 mg/dL igof=791) Triglyceride Reference Range: Low Risk <150 Borderline 150- 199 High Risk 200-499 Very High Risk >=500Cholesterol Reference Range: Low Risk <200 Borderline 200-239 High Risk > 240HDL Cholesterol Reference Range: Low Risk >=60 High Risk <40LDL Cholesterol Reference Range: Optimal <100 Near Optimal 100-129 Borderline 130-159 High 160-189 Very High >=[id number] 11:35:00 Test Item Value Reference Range Comments PREALBUMIN (BEAKER) (test ufuk=263) 19 mg/dL 14-45 PROTHROMBIN [id number] 11:24:00 Test Item Value Reference Range Comments PROTIME (BEAKER) (test qdfu=554) 13.3 seconds 11.9-14.2 INR (BEAKER) (test yzes=259) 1.1 <=5.9 Effective 08/30/2018: PT Reference Range ChangeNew: 11.9-14.2 Previous: 11.7- 14.7RECOMMENDED COUMADIN/WARFARIN INR THERAPY RANGESSTANDARD DOSE: 2.0-3.0 Includes: PROPHYLAXIS for venous thrombosis, systemic embolization; TREATMENT for venous thrombosis and/or pulmonary embolus.HIGH RISK: Target INR is2.5-3.5 for patients wiht mechanical heart valves.CBC W/PLT COUNT & AUTO [id number] 11:17:00 Test Item Value Reference Range Comments WHITE BLOOD CELL COUNT (BEAKER) (test xdgo=371) 6.5 K/ L 3.5-10.5 RED BLOOD CELL COUNT (BEAKER) (test rpdw=317) 3.02 M/ L 3.93-5.22 HEMOGLOBIN (BEAKER) (test gsju=950) 9.7 GM/DL 11.2-15.7 HEMATOCRIT (BEAKER) (test mgjo=012) 31.1 % 34.1-44.9 MEAN CORPUSCULAR VOLUME (BEAKER) (test hxjy=407) 103.0 fL 79.4-94.8 MEAN CORPUSCULAR HEMOGLOBIN (BEAKER) (test 32.1 pg 25.6-32.2 rwyl=192) MEAN CORPUSCULAR HEMOGLOBIN CONC (BEAKER) (test 31.2 GM/DL 32.2-35.5 xnbr=536) RED CELL DISTRIBUTION WIDTH (BEAKER) (test 13.0 % 11.7-14.4 hshz=615) PLATELET COUNT (BEAKER) (test yulk=927) 239 K/CU MM 150-450 MEAN PLATELET VOLUME (BEAKER) (test fpat=986) 9.4 fL 9.4-12.3 NUCLEATED RED BLOOD CELLS (BEAKER) (test 0 /100 WBC 0-0 pkpb=153) NEUTROPHILS RELATIVE PERCENT (BEAKER) (test 81 % rayn=480) LYMPHOCYTES RELATIVE PERCENT (BEAKER) (test 10 % hwnb=979) MONOCYTES RELATIVE PERCENT (BEAKER) (test 6 % qhmm=877) EOSINOPHILS RELATIVE PERCENT (BEAKER) (test 2 % jelm=907) BASOPHILS RELATIVE PERCENT (BEAKER) (test 1 % ieei=989) NEUTROPHILS ABSOLUTE COUNT (BEAKER) (test 5.23 K/ L 1.56-6.13 nxjn=458) LYMPHOCYTES ABSOLUTE COUNT (BEAKER) (test 0.65 K/ L 1.18-3.74 koic=930) MONOCYTES ABSOLUTE COUNT (BEAKER) (test 0.39 K/ L 0.24-0.36 atif=315) EOSINOPHILS ABSOLUTE COUNT (BEAKER) (test 0.13 K/ L 0.04-0.36 ncds=265) BASOPHILS ABSOLUTE COUNT (BEAKER) (test 0.05 K/ L 0.01-0.08 kthb=521) IMMATURE GRANULOCYTES-RELATIVE PERCENT (BEAKER) 0 % 0-1 (test ppyi=5673) POCT-GLUCOSE [id number] 12:29:00 Test Item Value Reference Range Comments POC-GLUCOSE METER (BEAKER) 221 mg/dL 70-110 TESTED AT [address] (test ywye=9455) [facility] [address] POCT-GLUCOSE [id number] 09:00:00 Test Item Value Reference Range Comments POC-GLUCOSE METER (BEAKER) 135 mg/dL 70-110 TESTED AT [address] (test omeh=9669) [facility] [address] RAD, CHEST, 1 VIEW, NON [id number] 08:57:00Reason for exam:->post opShould this be performed at the bedside?->YesFINAL REPORT RAD, CHEST, 1 VIEW, NON DEPT INDICATION: post op COMPARISON: Prior day' s exam FINDINGS: Portable frontal view of the chest. IMPRESSION: Support Lines: Stable. Lungs and pleura: Unchanged airspace and pleural opacities. No pneumothorax.Heart and mediastinum: Stable contours. Stable surgical changes.Additional findings: None. Signed: Trey Robles MDReport Verified Date/Time: 07/22/2018 08:57:17 Reading Location: [address] Neuro Reading Room Electronicallysigned by: TREY ROBLES MD on 07/22/2018 08:57 [id number] 07:51:00 Test Item Value Reference Range Comments PHOSPHORUS (BEAKER) (test wxok=548) 3.9 mg/dL 2.3-4.7 [id number] 07:51:00 Test Item Value Reference Range Comments MAGNESIUM (BEAKER) (test szhr=682) 1.7 mg/dL 1.6-2.6 BASIC METABOLIC [id number] 07:51:00 Test Item Value Reference Range Comments SODIUM (BEAKER) (test 139 meq/L 136-145 nmlg=245) POTASSIUM (BEAKER) (test 4.4 meq/L 3.5-5.1 aqcu=897) CHLORIDE (BEAKER) (test 102 meq/L 98-107 bfij=462) CO2 (BEAKER) (test 30 meq/L 22-29 fynn=749) BLOOD UREA NITROGEN 23 mg/dL 7-21 (BEAKER) (test devm=703) CREATININE (BEAKER) (test 1.40 mg/dL 0.57-1.25 hkvo=433) GLUCOSE RANDOM (BEAKER) 139 mg/dL 70-105 (test vytx=696) CALCIUM (BEAKER) (test 8.8 mg/dL 8.4-10.2 porn=656) EGFR (BEAKER) (test 45 mL/min/1.73 sq m ESTIMATED GFR IS NOT kppw=7884) ACCURATE CREATININE CLEARANCE IN PREDICTING GLOMERULAR FILTRATION RATE. ESTIMATED GFR IS NOT APPLICABLE FOR DIALYSIS PATIENTS. [id number] 05:36:00 Test Item Value Reference Range Comments PARTIAL THROMBOPLASTIN TIME (BEAKER) (test 44.5 seconds 22.5-36.0 mgqc=650) CBC (HEMOGRAM ONLY)2018-07-22 05:24:00 Test Item Value Reference Range Comments WHITE BLOOD CELL COUNT (BEAKER) (test rskd=595) 6.6 K/ L 3.5-10.5 RED BLOOD CELL COUNT (BEAKER) (test cqfa=908) 2.45 M/ L 3.93-5.22 HEMOGLOBIN (BEAKER) (test igji=065) 7.7 GM/DL 11.2-15.7 HEMATOCRIT (BEAKER) (test urmj=583) 26.1 % 34.1-44.9 MEAN CORPUSCULAR VOLUME (BEAKER) (test beoj=868) 106.5 fL 79.4-94.8 MEAN CORPUSCULAR HEMOGLOBIN (BEAKER) (test 31.4 pg 25.6-32.2 fgjs=449) MEAN CORPUSCULAR HEMOGLOBIN CONC (BEAKER) (test 29.5 GM/DL 32.2-35.5 cshw=052) RED CELL DISTRIBUTION WIDTH (BEAKER) (test 18.0 % 11.7-14.4 acbm=227) PLATELET COUNT (BEAKER) (test twxq=654) 227 K/CU MM 150-450 MEAN PLATELET VOLUME (BEAKER) (test qdde=044) 10.0 fL 9.4-12.3 NUCLEATED RED BLOOD CELLS (BEAKER) (test 0 /100 WBC 0-0 kuyw=640) POCT-GLUCOSE [id number] 21:36:00 Test Item Value Reference Range Comments POC-GLUCOSE METER (BEAKER) 283 mg/dL 70-110 TESTED AT [address] (test imvu=8909) [place] [id number] POCT-GLUCOSE [id number] 18:26:00 Test Item Value Reference Range Comments POC-GLUCOSE METER (BEAKER) 123 mg/dL 70-110 TESTED AT [address] (test gjak=1693) [place] [id number] POCT-GLUCOSE [id number] 14:04:00 Test Item Value Reference Range Comments POC-GLUCOSE METER (BEAKER) 152 mg/dL 70-110 TESTED AT [address] (test xqzh=0580) [place] [id number] POCT-GLUCOSE [id number] 12:52:00 Test Item Value Reference Range Comments POC-GLUCOSE METER (BEAKER) 228 mg/dL 70-110 TESTED AT [address] (test lfzn=7251) [facility] [address] RAD, CHEST, 1 VIEW, NON [id number] 09:40:00Reason for exam:->post opShould this be performed at the bedside?->YesFINAL REPORT Comparison: 07/20/2018 TECHNIQUE: Single view of the chest FINDINGS: There are nonspecific prominent interstitial markings bilaterally. Trace pleural effusions are seen. No gross new lung parenchymal changes. Cardiac silhouette is enlarged. Thoracic aortic stent grafts noted. Right-sided PICC line is stable. Signed: Olayinka Peters MDReport Verified Date/Time: 07/21/2018 09: 40:18 Reading Location: [facility] Radiology Reading Room POCT-GLUCOSE [id number] 09:10: 00 Test Item Value Reference Range Comments POC-GLUCOSE METER (BEAKER) 239 mg/dL 70-110 TESTED AT [address] (test fpdf=2414) [facility] [address] [id number] 06:51:00 Test Item Value Reference Range Comments PHOSPHORUS (BEAKER) (test gpit=497) 3.4 mg/dL 2.3-4.7 [id number] 06:51:00 Test Item Value Reference Range Comments MAGNESIUM (BEAKER) (test razw=564) 1.8 mg/dL 1.6-2.6 BASIC METABOLIC [id number] 06:51:00 Test Item Value Reference Range Comments SODIUM (BEAKER) (test 137 meq/L 136-145 kkpe=430) POTASSIUM (BEAKER) (test 4.4 meq/L 3.5-5.1 uhuz=570) CHLORIDE (BEAKER) (test 100 meq/L 98-107 rsux=959) CO2 (BEAKER) (test 31 meq/L 22-29 ruxw=997) BLOOD UREA NITROGEN 23 mg/dL 7-21 (BEAKER) (test hekz=370) CREATININE (BEAKER) (test 1.40 mg/dL 0.57-1.25 xbvd=943) GLUCOSE RANDOM (BEAKER) 146 mg/dL 70-105 (test zqfx=530) CALCIUM (BEAKER) (test 9.2 mg/dL 8.4-10.2 svnr=150) EGFR (BEAKER) (test 45 mL/min/1.73 sq m ESTIMATED GFR IS NOT elwy=6378) ACCURATE CREATININE CLEARANCE IN PREDICTING GLOMERULAR FILTRATION RATE. ESTIMATED GFR IS NOT APPLICABLE FOR DIALYSIS PATIENTS. [id number] 06:47:00 Test Item Value Reference Range Comments PARTIAL THROMBOPLASTIN TIME (BEAKER) (test 51.7 seconds 22.5-36.0 yyje=613) CBC (HEMOGRAM ONLY)2018-07-21 06:28:00 Test Item Value Reference Range Comments WHITE BLOOD CELL COUNT (BEAKER) (test cind=823) 5.4 K/ L 3.5-10.5 RED BLOOD CELL COUNT (BEAKER) (test kzlo=769) 2.66 M/ L 3.93-5.22 HEMOGLOBIN (BEAKER) (test ewxr=308) 8.2 GM/DL 11.2-15.7 HEMATOCRIT (BEAKER) (test gulm=955) 28.3 % 34.1-44.9 MEAN CORPUSCULAR VOLUME (BEAKER) (test lnjh=801) 106.4 fL 79.4-94.8 MEAN CORPUSCULAR HEMOGLOBIN (BEAKER) (test 30.8 pg 25.6-32.2 uxbr=779) MEAN CORPUSCULAR HEMOGLOBIN CONC (BEAKER) (test 29.0 GM/DL 32.2-35.5 sxrw=712) RED CELL DISTRIBUTION WIDTH (BEAKER) (test 18.3 % 11.7-14.4 ouys=002) PLATELET COUNT (BEAKER) (test luat=114) 211 K/CU MM 150-450 MEAN PLATELET VOLUME (BEAKER) (test nudr=261) 10.3 fL 9.4-12.3 NUCLEATED RED BLOOD CELLS (BEAKER) (test 0 /100 WBC 0-0 jzzg=907) POCT-GLUCOSE [id number] 21:18:00 Test Item Value Reference Range Comments POC-GLUCOSE METER (BEAKER) 245 mg/dL 70-110 TESTED AT [address] (test ttlf=3005) [place] [id number] POCT-GLUCOSE [id number] 18:12:00 Test Item Value Reference Range Comments POC-GLUCOSE METER (BEAKER) 158 mg/dL 70-110 TESTED AT [address] (test papi=5520) [place] [id number] POCT-GLUCOSE [id number] 12:46:00 Test Item Value Reference Range Comments POC-GLUCOSE METER (BEAKER) 178 mg/dL 70-110 TESTED AT [address] (test bjbb=4545) [facility] [address] RAD, CHEST, 1 VIEW, NON [id number] 08:43:00Reason for exam:->post opShould this be performed at the bedside?->YesFINAL REPORT Chest one view. Clinical history: post op Comparison: 2018Discussion: A frontal chest is provided. Cardiomediastinal contours are unchanged. Lines and tubesare in stable position. Stable appearance of vascular congestion and interstitial edema. Small bilateral pleural effusions. No pneumothorax. Signed: Morgan Cheng Verified Date/Time: 07/20/2018 08:43 :10 Reading Location: [facility] Radiology Reading Room POCT-GLUCOSE [id number] 08:05:00 Test Item Value Reference Range Comments POC-GLUCOSE METER (BEAKER) 114 mg/dL 70-110 TESTED AT [facility] [address] (test fyem=3297) [facility] [address] [id number] 06:55:00 Test Item Value Reference Range Comments PHOSPHORUS (BEAKER) (test lhbo=020) 3.4 mg/dL 2.3-4.7 [id number] 06:55:00 Test Item Value Reference Range Comments MAGNESIUM (BEAKER) (test goqb=022) 1.5 mg/dL 1.6-2.6 BASIC METABOLIC [id number] 06:55:00 Test Item Value Reference Range Comments SODIUM (BEAKER) (test 137 meq/L 136-145 xmts=498) POTASSIUM (BEAKER) (test 4.4 meq/L 3.5-5.1 beyv=672) CHLORIDE (BEAKER) (test 101 meq/L 98-107 fnhw=675) CO2 (BEAKER) (test 27 meq/L 22-29 zplc=754) BLOOD UREA NITROGEN 23 mg/dL 7-21 (BEAKER) (test dsxm=095) CREATININE (BEAKER) (test 1.28 mg/dL 0.57-1.25 pjhg=322) GLUCOSE RANDOM (BEAKER) 150 mg/dL 70-105 (test irya=918) CALCIUM (BEAKER) (test 9.0 mg/dL 8.4-10.2 twyu=097) EGFR (BEAKER) (test 50 mL/min/1.73 sq m ESTIMATED GFR IS NOT hkqx=5799) ACCURATE CREATININE CLEARANCE IN PREDICTING GLOMERULAR FILTRATION RATE. ESTIMATED GFR IS NOT APPLICABLE FOR DIALYSIS PATIENTS. [id number] 06:28:00 Test Item Value Reference Range Comments PARTIAL THROMBOPLASTIN TIME (BEAKER) (test 44.5 seconds 22.5-36.0 zukd=982) CBC (HEMOGRAM ONLY)2018-07-20 06:19:00 Test Item Value Reference Range Comments WHITE BLOOD CELL COUNT (BEAKER) (test whxn=021) 5.5 K/ L 3.5-10.5 RED BLOOD CELL COUNT (BEAKER) (test pzxl=593) 2.58 M/ L 3.93-5.22 HEMOGLOBIN (BEAKER) (test rxmz=416) 7.9 GM/DL 11.2-15.7 HEMATOCRIT (BEAKER) (test rgvp=912) 27.1 % 34.1-44.9 MEAN CORPUSCULAR VOLUME (BEAKER) (test jguf=084) 105.0 fL 79.4-94.8 MEAN CORPUSCULAR HEMOGLOBIN (BEAKER) (test 30.6 pg 25.6-32.2 gpav=360) MEAN CORPUSCULAR HEMOGLOBIN CONC (BEAKER) (test 29.2 GM/DL 32.2-35.5 nlsc=272) RED CELL DISTRIBUTION WIDTH (BEAKER) (test 18.5 % 11.7-14.4 ktwd=794) PLATELET COUNT (BEAKER) (test wpkt=884) 189 K/CU MM 150-450 MEAN PLATELET VOLUME (BEAKER) (test ttid=300) 9.9 fL 9.4-12.3 NUCLEATED RED BLOOD CELLS (BEAKER) (test 0 /100 WBC 0-0 gtqr=995) POCT-GLUCOSE [id number] 00:43:00 Test Item Value Reference Range Comments POC-GLUCOSE METER (BEAKER) 135 mg/dL 70-110 TESTED AT [address] (test hnqv=9780) [facility] [address] POCT-GLUCOSE [id number] 21:19:00 Test Item Value Reference Range Comments POC-GLUCOSE METER (BEAKER) 284 mg/dL 70-110 TESTED AT [address] (test qbfk=7597) [facility] [address] POCT-GLUCOSE [id number] 17:54:00 Test Item Value Reference Range Comments POC-GLUCOSE METER (BEAKER) 146 mg/dL 70-110 TESTED AT [address] (test ixbr=1094) [facility] [address] POCT-GLUCOSE [id number] 14:15:00 Test Item Value Reference Range Comments POC-GLUCOSE METER (BEAKER) 230 mg/dL 70-110 TESTED AT [address] (test nkoq=7358) [facility] [address] RAD, CHEST, 1 VIEW, NON [id number] 08:30:00Reason for exam:->post opShould this be performed [...] MDReport Verified Date/Time: 07/19/2018 08:30:21 Reading Location: [facility] Radiology Reading Room POCT-GLUCOSE [id number] 07:30:00 Test Item Value Reference Range Comments POC-GLUCOSE METER (BEAKER) 177 mg/dL 70-110 TESTED AT [facility] [address] [facility] (test nthr=6240) [facility] [address] [id number] 05:20:00 Test Item Value Reference Range Comments PHOSPHORUS (BEAKER) (test hxgm=415) 3.5 mg/dL 2.3-4.7 [id number] 05:20:00 Test Item Value Reference Range Comments MAGNESIUM (BEAKER) (test qgbt=105) 1.8 mg/dL 1.6-2.6 BASIC METABOLIC [id number] 05:20:00 Test Item Value Reference Range Comments SODIUM (BEAKER) (test 142 meq/L 136-145 tqdp=329) POTASSIUM (BEAKER) (test 4.5 meq/L 3.5-5.1 zgam=279) CHLORIDE (BEAKER) (test 107 meq/L 98-107 vtmb=409) CO2 (BEAKER) (test 31 meq/L 22-29 udwp=253) BLOOD UREA NITROGEN 25 mg/dL 7-21 (BEAKER) (test sikh=210) CREATININE (BEAKER) (test 1.35 mg/dL 0.57-1.25 lybt=234) GLUCOSE RANDOM (BEAKER) 165 mg/dL 70-105 (test gjdf=311) CALCIUM (BEAKER) (test 9.1 mg/dL 8.4-10.2 ezwr=843) EGFR (BEAKER) (test 47 mL/min/1.73 sq m ESTIMATED GFR IS NOT uhat=5485) ACCURATE CREATININE CLEARANCE IN PREDICTING GLOMERULAR FILTRATION RATE. ESTIMATED GFR IS NOT APPLICABLE FOR DIALYSIS PATIENTS. [id number] 05:17:00 Test Item Value Reference Range Comments PARTIAL THROMBOPLASTIN TIME (BEAKER) (test 44.9 seconds 22.5-36.0 qxjh=774) PROTHROMBIN [id number] 05:16:00 Test Item Value Reference Range Comments PROTIME (BEAKER) (test rirf=217) 13.9 seconds 11.7-14.7 INR (BEAKER) (test ltcv=623) 1.1 <=5.9 RECOMMENDED COUMADIN/WARFARIN INR THERAPY RANGESSTANDARD DOSE: 2.0 - 3.0 Includes: PROPHYLAXIS forvenous thrombosis, systemic embolization; TREATMENT for venous thrombosis and/or pulmonary embolus.HIGH RISK: Target INR is 2.5-3.5 for patients with mechanical heart valves.CBC (HEMOGRAM ONLY)2018-07-19 05:02:00 Test Item Value Reference Range Comments WHITE BLOOD CELL COUNT (BEAKER) (test hefz=142) 6.3 K/ L 3.5-10.5 RED BLOOD CELL COUNT (BEAKER) (test pdmh=921) 2.59 M/ L 3.93-5.22 HEMOGLOBIN (BEAKER) (test ofpy=846) 8.1 GM/DL 11.2-15.7 HEMATOCRIT (BEAKER) (test itvp=294) 27.6 % 34.1-44.9 MEAN CORPUSCULAR VOLUME (BEAKER) (test lxds=151) 106.6 fL 79.4-94.8 MEAN CORPUSCULAR HEMOGLOBIN (BEAKER) (test 31.3 pg 25.6-32.2 eoza=039) MEAN CORPUSCULAR HEMOGLOBIN CONC (BEAKER) (test 29.3 GM/DL 32.2-35.5 oquz=533) RED CELL DISTRIBUTION WIDTH (BEAKER) (test 18.6 % 11.7-14.4 tduy=871) PLATELET COUNT (BEAKER) (test ssgr=869) 186 K/CU MM 150-450 MEAN PLATELET VOLUME (BEAKER) (test mihr=415) 9.7 fL 9.4-12.3 NUCLEATED RED BLOOD CELLS (BEAKER) (test 0 /100 WBC 0-0 pliw=451) POCT-GLUCOSE [id number] 23:14:00 Test Item Value Reference Range Comments POC-GLUCOSE METER (BEAKER) 173 mg/dL 70-110 TESTED AT [address] (test yegl=8351) [facility] [address] POCT-GLUCOSE [id number] 21:47:00 Test Item Value Reference Range Comments POC-GLUCOSE METER (BEAKER) 237 mg/dL 70-110 TESTED AT [address] (test bhqq=1949) [facility] [address] POCT-GLUCOSE [id number] 18:16:00 Test Item Value Reference Range Comments POC-GLUCOSE METER (BEAKER) 234 mg/dL 70-110 TESTED AT [address] (test ejrq=7937) [facility] [address] POCT-GLUCOSE [id number] 08:34:00 Test Item Value Reference Range Comments POC-GLUCOSE METER (BEAKER) 127 mg/dL 70-110 TESTED AT [address] (test mejj=8055) [facility] [address] RAD, CHEST, 1 VIEW, NON [id number] 08:16:00Reason for exam:->post opShould this be performed at the bedside?->YesFINAL REPORT Chest one view. Clinical history: post op Comparison: 2018Discussion: A frontal chest is provided. Cardiac silhouette is enlarged. Aortic stent is again noted. There is mild vascular congestion and interstitial edema. Streaky bibasilar atelectasis or consolidation similar to the prior exam. Small right effusion. No pneumothorax. Signed: Morgan Chegn Verified Date/Time: 07/18/2018 08:16:56 Reading Location: [facility] Radiology Reading Room 08: 16 AMCBC (HEMOGRAM ONLY)2018-07-18 04:48:00 Test Item Value Reference Range Comments WHITE BLOOD CELL COUNT (BEAKER) (test qqoq=500) 7.8 K/ L 3.5-10.5 RED BLOOD CELL COUNT (BEAKER) (test olsn=500) 2.64 M/ L 3.93-5.22 HEMOGLOBIN (BEAKER) (test kfhb=632) 8.1 GM/DL 11.2-15.7 HEMATOCRIT (BEAKER) (test cdbz=808) 28.1 % 34.1-44.9 MEAN CORPUSCULAR VOLUME (BEAKER) (test xcnr=581) 106.4 fL 79.4-94.8 MEAN CORPUSCULAR HEMOGLOBIN (BEAKER) (test 30.7 pg 25.6-32.2 epul=552) MEAN CORPUSCULAR HEMOGLOBIN CONC (BEAKER) (test 28.8 GM/DL 32.2-35.5 uoyi=298) RED CELL DISTRIBUTION WIDTH (BEAKER) (test 18.9 % 11.7-14.4 ecei=532) PLATELET COUNT (BEAKER) (test gmjm=103) 197 K/CU MM 150-450 MEAN PLATELET VOLUME (BEAKER) (test zbxu=371) 10.2 fL 9.4-12.3 NUCLEATED RED BLOOD CELLS (BEAKER) (test 0 /100 WBC 0-0 nmzp=136) [id number] 04:40:00 Test Item Value Reference Range Comments PHOSPHORUS (BEAKER) (test rami=127) 3.6 mg/dL 2.3-4.7 [id number] 04:40:00 Test Item Value Reference Range Comments MAGNESIUM (BEAKER) (test lwnh=757) 1.8 mg/dL 1.6-2.6 BASIC METABOLIC [id number] 04:40:00 Test Item Value Reference Range Comments SODIUM (BEAKER) (test 140 meq/L 136-145 chsj=006) POTASSIUM (BEAKER) (test 4.5 meq/L 3.5-5.1 fntn=298) CHLORIDE (BEAKER) (test 106 meq/L 98-107 ywlm=816) CO2 (BEAKER) (test 26 meq/L 22-29 gvsd=222) BLOOD UREA NITROGEN 23 mg/dL 7-21 (BEAKER) (test dfhs=324) CREATININE (BEAKER) (test 1.34 mg/dL 0.57-1.25 jvzp=854) GLUCOSE RANDOM (BEAKER) 105 mg/dL 70-105 (test mnbk=473) CALCIUM (BEAKER) (test 9.1 mg/dL 8.4-10.2 iysy=512) EGFR (BEAKER) (test 47 mL/min/1.73 sq m ESTIMATED GFR IS NOT gwkg=9169) ACCURATE CREATININE CLEARANCE IN PREDICTING GLOMERULAR FILTRATION RATE. ESTIMATED GFR IS NOT APPLICABLE FOR DIALYSIS PATIENTS. [id number] 04:22:00 Test Item Value Reference Range Comments PARTIAL THROMBOPLASTIN TIME (BEAKER) (test 56.8 seconds 22.5-36.0 xwuc=852) PROTHROMBIN [id number] 04:20:00 Test Item Value Reference Range Comments PROTIME (BEAKER) (test ckyr=021) 13.9 seconds 11.7-14.7 INR (BEAKER) (test gfnx=002) 1.0 <=5.9 RECOMMENDED COUMADIN/WARFARIN INR THERAPY RANGESSTANDARD DOSE: 2.0 - 3.0 Includes: PROPHYLAXIS forvenous thrombosis, systemic embolization; TREATMENT for venous thrombosis and/or pulmonary embolus.HIGH RISK: Target INR is 2.5-3.5 for patients with mechanical heart valves.POCT-GLUCOSE [id number] 20:54:00 Test Item Value Reference Range Comments POC-GLUCOSE METER (BEAKER) 311 mg/dL 70-110 Patient on insulin Drip/TESTED (test uxnk=8427) AT [place] [id number] POCT-GLUCOSE [id number] 18:21:00 Test Item Value Reference Range Comments POC-GLUCOSE METER (BEAKER) 186 mg/dL 70-110 TESTED AT [address] (test xnra=3788) [place] [address] POCT-GLUCOSE [id number] 13:16:00 Test Item Value Reference Range Comments POC-GLUCOSE METER (BEAKER) 153 mg/dL 70-110 TESTED AT [address] (test vsqv=9734) [place] [id number] POCT-GLUCOSE [id number] 09:26:00 Test Item Value Reference Range Comments POC-GLUCOSE METER (BEAKER) 128 mg/dL 70-110 TESTED AT [address] (test srgm=3662) [place] [id number] RAD, CHEST, 1 VIEW, NON [id number] 07:39:00Reason for exam:->post opShould this be performed [...] MDReport Verified Date/Time: 2018 07:39:00 Reading Location: [facility] Radiology Reading Room Electronically signed by: AZUL SAM M.D.on 07/17/2018 07:39 [id number] 06:22:00 Test Item Value Reference Range Comments PHOSPHORUS (BEAKER) (test paeo=779) 3.6 mg/dL 2.3-4.7 [id number] 06:22:00 Test Item Value Reference Range Comments MAGNESIUM (BEAKER) (test rnhr=055) 1.9 mg/dL 1.6-2.6 BASIC METABOLIC [id number] 06:22:00 Test Item Value Reference Range Comments SODIUM (BEAKER) (test 142 meq/L 136-145 gqfz=388) POTASSIUM (BEAKER) (test 4.6 meq/L 3.5-5.1 yxqh=941) CHLORIDE (BEAKER) (test 106 meq/L 98-107 drft=050) CO2 (BEAKER) (test 30 meq/L 22-29 gwyi=841) BLOOD UREA NITROGEN 23 mg/dL 7-21 (BEAKER) (test rdrb=465) CREATININE (BEAKER) (test 1.31 mg/dL 0.57-1.25 fvpa=776) GLUCOSE RANDOM (BEAKER) 88 mg/dL 70-105 (test rjja=767) CALCIUM (BEAKER) (test 8.9 mg/dL 8.4-10.2 iwml=248) EGFR (BEAKER) (test 49 mL/min/1.73 sq m ESTIMATED GFR IS NOT rwdi=3740) ACCURATE CREATININE CLEARANCE IN PREDICTING GLOMERULAR FILTRATION RATE. ESTIMATED GFR IS NOT APPLICABLE FOR DIALYSIS PATIENTS. [id number] 05:10:00 Test Item Value Reference Range Comments PARTIAL THROMBOPLASTIN TIME (BEAKER) (test 52.0 seconds 22.5-36.0 eenm=781) PROTHROMBIN [id number] 05:09:00 Test Item Value Reference Range Comments PROTIME (BEAKER) (test swqk=808) 14.3 seconds 11.7-14.7 INR (BEAKER) (test sxja=671) 1.1 <=5.9 RECOMMENDED COUMADIN/WARFARIN INR THERAPY RANGESSTANDARD DOSE: 2.0 - 3.0 Includes: PROPHYLAXIS forvenous thrombosis, systemic embolization; TREATMENT for venous thrombosis and/or pulmonary embolus.HIGH RISK: Target INR is 2.5-3.5 for patients with mechanical heart valves.CBC (HEMOGRAM ONLY)2018-07-17 04:55:00 Test Item Value Reference Range Comments WHITE BLOOD CELL COUNT (BEAKER) (test vsnn=016) 7.5 K/ L 3.5-10.5 RED BLOOD CELL COUNT (BEAKER) (test nhwy=535) 2.63 M/ L 3.93-5.22 HEMOGLOBIN (BEAKER) (test wuxr=093) 8.1 GM/DL 11.2-15.7 HEMATOCRIT (BEAKER) (test uvzs=977) 27.7 % 34.1-44.9 MEAN CORPUSCULAR VOLUME (BEAKER) (test oajd=049) 105.3 fL 79.4-94.8 MEAN CORPUSCULAR HEMOGLOBIN (BEAKER) (test 30.8 pg 25.6-32.2 ldjp=885) MEAN CORPUSCULAR HEMOGLOBIN CONC (BEAKER) (test 29.2 GM/DL 32.2-35.5 zxyx=446) RED CELL DISTRIBUTION WIDTH (BEAKER) (test 18.9 % 11.7-14.4 cvhb=696) PLATELET COUNT (BEAKER) (test nfdc=587) 215 K/CU MM 150-450 MEAN PLATELET VOLUME (BEAKER) (test wbwb=700) 10.2 fL 9.4-12.3 NUCLEATED RED BLOOD CELLS (BEAKER) (test 0 /100 WBC 0-0 tarm=233) POCT-GLUCOSE [id number] 21:30:00 Test Item Value Reference Range Comments POC-GLUCOSE METER (BEAKER) 217 mg/dL 70-110 TESTED AT [address] (test ytya=7862) [facility] [address] POCT-GLUCOSE [id number] 18:00:00 Test Item Value Reference Range Comments POC-GLUCOSE METER (BEAKER) 192 mg/dL 70-110 TESTED AT [address] (test anws=4646) [facility] [address] POCT-GLUCOSE [id number] 14:32:00 Test Item Value Reference Range Comments POC-GLUCOSE METER (BEAKER) 203 mg/dL 70-110 TESTED AT [address] (test jlev=8243) [facility] [address] POCT-GLUCOSE [id number] 09:41:00 Test Item Value Reference Range Comments POC-GLUCOSE METER (BEAKER) 113 mg/dL 70-110 TESTED AT [address] (test rjnt=8903) [facility] [address] [id number] 08:49:00 Test Item Value Reference Range Comments PHOSPHORUS (BEAKER) (test elya=433) 3.9 mg/dL 2.3-4.7 [id number] 08:49:00 Test Item Value Reference Range Comments MAGNESIUM (BEAKER) (test wmhf=510) 2.0 mg/dL 1.6-2.6 BASIC METABOLIC [id number] 08:49:00 Test Item Value Reference Range Comments SODIUM (BEAKER) (test 142 meq/L 136-145 mbbn=139) POTASSIUM (BEAKER) (test 4.5 meq/L 3.5-5.1 ngdh=542) CHLORIDE (BEAKER) (test 105 meq/L 98-107 xfpi=452) CO2 (BEAKER) (test 30 meq/L 22-29 zibx=376) BLOOD UREA NITROGEN 24 mg/dL 7-21 (BEAKER) (test fmua=311) CREATININE (BEAKER) (test 1.25 mg/dL 0.57-1.25 hvym=703) GLUCOSE RANDOM (BEAKER) 80 mg/dL 70-105 (test oydc=657) CALCIUM (BEAKER) (test 8.8 mg/dL 8.4-10.2 layn=438) EGFR (BEAKER) (test 51 mL/min/1.73 sq m ESTIMATED GFR IS NOT qvph=2080) ACCURATE CREATININE CLEARANCE IN PREDICTING GLOMERULAR FILTRATION RATE. ESTIMATED GFR IS NOT APPLICABLE FOR DIALYSIS PATIENTS. RAD, CHEST, 1 VIEW, NON [id number] 08:09:00Reason for exam:->post opShould this be performed [...] Verified Date/Time: 07/16/2018 08:09:34 Reading Location: [address] Body Reading Room 08: 09 AMPROTHROMBIN TIME/[id number] 05:46:00 Test Item Value Reference Range Comments PROTIME (BEAKER) (test kruj=474) 14.0 seconds 11.7-14.7 INR (BEAKER) (test hwhc=340) 1.1 <=5.9 RECOMMENDED COUMADIN/WARFARIN INR THERAPY RANGESSTANDARD DOSE: 2.0 - 3.0 Includes: PROPHYLAXIS forvenous thrombosis, systemic embolization; TREATMENT for venous thrombosis and/or pulmonary embolus.HIGH RISK: Target INR is 2.5-3.5 for patients with mechanical heart valves.[id number] 05:46:00 Test Item Value Reference Range Comments PARTIAL THROMBOPLASTIN TIME (BEAKER) (test 54.5 seconds 22.5-36.0 qarv=820) CBC (HEMOGRAM ONLY)2018-07-16 05:33:00 Test Item Value Reference Range Comments WHITE BLOOD CELL COUNT (BEAKER) (test umyr=430) 6.6 K/ L 3.5-10.5 RED BLOOD CELL COUNT (BEAKER) (test klvs=452) 2.75 M/ L 3.93-5.22 HEMOGLOBIN (BEAKER) (test ubgy=662) 8.5 GM/DL 11.2-15.7 HEMATOCRIT (BEAKER) (test spch=766) 28.5 % 34.1-44.9 MEAN CORPUSCULAR VOLUME (BEAKER) (test dmgl=410) 103.6 fL 79.4-94.8 MEAN CORPUSCULAR HEMOGLOBIN (BEAKER) (test 30.9 pg 25.6-32.2 rcpx=452) MEAN CORPUSCULAR HEMOGLOBIN CONC (BEAKER) (test 29.8 GM/DL 32.2-35.5 fdhk=135) RED CELL DISTRIBUTION WIDTH (BEAKER) (test 19.1 % 11.7-14.4 xtqa=978) PLATELET COUNT (BEAKER) (test xixx=503) 240 K/CU MM 150-450 MEAN PLATELET VOLUME (BEAKER) (test tkpl=545) 10.1 fL 9.4-12.3 NUCLEATED RED BLOOD CELLS (BEAKER) (test 0 /100 WBC 0-0 qzxs=565) POCT-GLUCOSE [id number] 21:14:00 Test Item Value Reference Range Comments POC-GLUCOSE METER (BEAKER) 152 mg/dL 70-110 TESTED AT [address] (test utyu=9309) [place] [id number] POCT-GLUCOSE [id number] 19:03:00 Test Item Value Reference Range Comments POC-GLUCOSE METER (BEAKER) 173 mg/dL 70-110 TESTED AT [address] (test vwvn=8256) [place] [id number] POCT-GLUCOSE [id number] 13:33:00 Test Item Value Reference Range Comments POC-GLUCOSE METER (BEAKER) 274 mg/dL 70-110 TESTED AT [address] (test mgxw=6452) [place] [id number] POCT-GLUCOSE [id number] 10:28:00 Test Item Value Reference Range Comments POC-GLUCOSE METER (BEAKER) 131 mg/dL 70-110 TESTED AT [address] (test tjhm=3263) [place] [id number] POCT-GLUCOSE [id number] 06:41:00 Test Item Value Reference Range Comments POC-GLUCOSE METER (BEAKER) 152 mg/dL 70-110 TESTED AT [address] (test jthy=0444) [place] [address] [id number] 04:02:00 Test Item Value Reference Range Comments PHOSPHORUS (BEAKER) (test lgoo=175) 3.6 mg/dL 2.3-4.7 [id number] 04:02:00 Test Item Value Reference Range Comments MAGNESIUM (BEAKER) (test ndzu=100) 2.1 mg/dL 1.6-2.6 BASIC METABOLIC [id number] 04:02:00 Test Item Value Reference Range Comments SODIUM (BEAKER) (test 135 meq/L 136-145 xbgr=521) POTASSIUM (BEAKER) (test 4.6 meq/L 3.5-5.1 kpsc=026) CHLORIDE (BEAKER) (test 101 meq/L 98-107 fpuw=703) CO2 (BEAKER) (test 27 meq/L 22-29 avqs=758) BLOOD UREA NITROGEN 23 mg/dL 7-21 (BEAKER) (test qiii=240) CREATININE (BEAKER) (test 1.37 mg/dL 0.57-1.25 ehlw=719) GLUCOSE RANDOM (BEAKER) 187 mg/dL 70-105 (test tjrj=824) CALCIUM (BEAKER) (test 8.4 mg/dL 8.4-10.2 uddw=844) EGFR (BEAKER) (test 46 mL/min/1.73 sq m ESTIMATED GFR IS NOT cger=3909) ACCURATE CREATININE CLEARANCE IN PREDICTING GLOMERULAR FILTRATION RATE. ESTIMATED GFR IS NOT APPLICABLE FOR DIALYSIS PATIENTS. [id number] 03:57:00 Test Item Value Reference Range Comments PARTIAL THROMBOPLASTIN TIME (BEAKER) (test 44.5 seconds 22.5-36.0 grdu=005) PROTHROMBIN [id number] 03:56:00 Test Item Value Reference Range Comments PROTIME (BEAKER) (test zixx=485) 13.4 seconds 11.7-14.7 INR (BEAKER) (test qkbo=047) 1.0 <=5.9 RECOMMENDED COUMADIN/WARFARIN INR THERAPY RANGESSTANDARD DOSE: 2.0 - 3.0 Includes: PROPHYLAXIS forvenous thrombosis, systemic embolization; TREATMENT for venous thrombosis and/or pulmonary embolus.HIGH RISK: Target INR is 2.5-3.5 for patients with mechanical heart valves.RAD, CHEST, 1 VIEW, NON [id number] 03:40:00Reason for exam:->post opShould this be [...] None. Signed: Trey Robles MDRepcamilla Verified Date/Time: 07/15/2018 03:40:13 Reading Location: [facility] Reading Room 03: 40 AMCBC (HEMOGRAM ONLY)2018-07-15 03:33:00 Test Item Value Reference Range Comments WHITE BLOOD CELL COUNT (BEAKER) (test hcqm=775) 7.2 K/ L 3.5-10.5 RED BLOOD CELL COUNT (BEAKER) (test ppst=234) 2.91 M/ L 3.93-5.22 HEMOGLOBIN (BEAKER) (test khyr=529) 8.9 GM/DL 11.2-15.7 HEMATOCRIT (BEAKER) (test toap=956) 30.2 % 34.1-44.9 MEAN CORPUSCULAR VOLUME (BEAKER) (test nssg=851) 103.8 fL 79.4-94.8 MEAN CORPUSCULAR HEMOGLOBIN (BEAKER) (test 30.6 pg 25.6-32.2 ebfb=841) MEAN CORPUSCULAR HEMOGLOBIN CONC (BEAKER) (test 29.5 GM/DL 32.2-35.5 risd=277) RED CELL DISTRIBUTION WIDTH (BEAKER) (test 19.2 % 11.7-14.4 ezng=210) PLATELET COUNT (BEAKER) (test ohyc=032) 217 K/CU MM 150-450 MEAN PLATELET VOLUME (BEAKER) (test yafa=312) 9.8 fL 9.4-12.3 NUCLEATED RED BLOOD CELLS (BEAKER) (test 0 /100 WBC 0-0 wxxo=298) POCT-GLUCOSE [id number] 21:46:00 Test Item Value Reference Range Comments POC-GLUCOSE METER (BEAKER) 263 mg/dL 70-110 TESTED AT [address] (test uiwe=9845) [facility] [address] POCT-GLUCOSE [id number] 19:03:00 Test Item Value Reference Range Comments POC-GLUCOSE METER (BEAKER) 178 mg/dL 70-110 TESTED AT [address] (test vqes=7919) [facility] [address] POCT-GLUCOSE [id number] 17:02:00 Test Item Value Reference Range Comments POC-GLUCOSE METER (BEAKER) 126 mg/dL 70-110 TESTED AT [address] (test lyku=1119) [facility] [address] POCT-GLUCOSE [id number] 11:34:00 Test Item Value Reference Range Comments POC-GLUCOSE METER (BEAKER) 202 mg/dL 70-110 TESTED AT [address] (test bczc=4402) [facility] [address] RAD, CHEST, 1 VIEW, NON [id number] 05:46:00Reason for exam:->post opShould this be performed [...] Verified Date/Time: 07/14/2018 05:46:57 Reading Location: [address] Neuro Reading Room [id number] 04:03:00 Test Item Value Reference Range Comments MAGNESIUM (BEAKER) (test 2.2 mg/dL 1.6-2.6 Specimen slightly hemolyzed nncl=243) [id number] 04:03:00 Test Item Value Reference Range Comments PHOSPHORUS (BEAKER) (test 2.9 mg/dL 2.3-4.7 Specimen slightly hemolyzed gevo=781) BASIC METABOLIC [id number] 04:03:00 Test Item Value Reference Range Comments SODIUM (BEAKER) (test 138 meq/L 136-145 opij=823) POTASSIUM (BEAKER) (test 5.0 meq/L 3.5-5.1 Specimen slightly tnyy=626) hemolyzed CHLORIDE (BEAKER) (test 103 meq/L 98-107 boak=331) CO2 (BEAKER) (test 29 meq/L 22-29 irhg=109) BLOOD UREA NITROGEN 23 mg/dL 7-21 (BEAKER) (test oeww=789) CREATININE (BEAKER) (test 1.41 mg/dL 0.57-1.25 Specimen slightly pmbb=839) hemolyzed GLUCOSE RANDOM (BEAKER) 144 mg/dL 70-105 (test luca=365) CALCIUM (BEAKER) (test 9.1 mg/dL 8.4-10.2 rrrv=716) EGFR (BEAKER) (test 45 mL/min/1.73 sq m ESTIMATED GFR IS NOT iljf=4180) ACCURATE CREATININE CLEARANCE IN PREDICTING GLOMERULAR FILTRATION RATE. ESTIMATED GFR IS NOT APPLICABLE FOR DIALYSIS PATIENTS. [id number] 03:49:00 Test Item Value Reference Range Comments PARTIAL THROMBOPLASTIN TIME (BEAKER) (test 42.0 seconds 22.5-36.0 sogk=643) PROTHROMBIN TIME/[id number] 03:48:00 Test Item Value Reference Range Comments PROTIME (BEAKER) (test ekpz=981) 14.1 seconds 11.7-14.7 INR (BEAKER) (test bbwm=217) 1.1 <=5.9 RECOMMENDED COUMADIN/WARFARIN INR THERAPY RANGESSTANDARD DOSE: 2.0 - 3.0 Includes: PROPHYLAXIS forvenous thrombosis, systemic embolization; TREATMENT for venous thrombosis and/or pulmonary embolus.HIGH RISK: Target INR is 2.5-3.5 for patients with mechanical heart valves.CBC (HEMOGRAM ONLY)2018-07-14 03:38:00 Test Item Value Reference Range Comments WHITE BLOOD CELL COUNT (BEAKER) (test pnsk=391) 8.1 K/ L 3.5-10.5 RED BLOOD CELL COUNT (BEAKER) (test aamr=319) 2.93 M/ L 3.93-5.22 HEMOGLOBIN (BEAKER) (test htip=536) 9.0 GM/DL 11.2-15.7 HEMATOCRIT (BEAKER) (test ervz=792) 30.6 % 34.1-44.9 MEAN CORPUSCULAR VOLUME (BEAKER) (test gmdv=740) 104.4 fL 79.4-94.8 MEAN CORPUSCULAR HEMOGLOBIN (BEAKER) (test 30.7 pg 25.6-32.2 opfp=713) MEAN CORPUSCULAR HEMOGLOBIN CONC (BEAKER) (test 29.4 GM/DL 32.2-35.5 ogrr=217) RED CELL DISTRIBUTION WIDTH (BEAKER) (test 19.6 % 11.7-14.4 joqw=546) PLATELET COUNT (BEAKER) (test ghue=221) 252 K/CU MM 150-450 MEAN PLATELET VOLUME (BEAKER) (test qtuf=772) 9.7 fL 9.4-12.3 NUCLEATED RED BLOOD CELLS (BEAKER) (test 0 /100 WBC 0-0 hdyp=773) POCT-GLUCOSE [id number] 21:17:00 Test Item Value Reference Range Comments POC-GLUCOSE METER (BEAKER) 168 mg/dL 70-110 TESTED AT [address] (test ajqq=5260) [place] [id number] POCT-GLUCOSE [id number] 16:32:00 Test Item Value Reference Range Comments POC-GLUCOSE METER (BEAKER) 267 mg/dL 70-110 TESTED AT [address] (test udzl=5048) [facility] [address] POCT-GLUCOSE [id number] 12:30:00 Test Item Value Reference Range Comments POC-GLUCOSE METER (BEAKER) 213 mg/dL 70-110 TESTED AT [address] (test romr=2113) [place] [address] RAD, CHEST, 1 VIEW, NON [id number] 09:17:00Reason for exam:->post opShould this be performed [...] MDReport Verified Date/Time: 07/13/2018 09:17:51 Reading Location: [facility] Radiology ReadingRoom 09 :17 AMDIGOXIN [id number] 09:01:00 Test Item Value Reference Range Comments DIGOXIN LEVEL (BEAKER) (test ciop=402) 0.8 ng/mL 0.8-2.0 Draw before next dose of DigoxinPOCT-GLUCOSE [id number] 08:47:00 Test Item Value Reference Range Comments POC-GLUCOSE METER (BEAKER) 240 mg/dL 70-110 TESTED AT [facility] [address] [place] [address] (test rrgk=8092) [facility] [address] [id number] 04:08:00 Test Item Value Reference Range Comments PHOSPHORUS (BEAKER) (test gsbz=210) 3.5 mg/dL 2.3-4.7 [id number] 04:08:00 Test Item Value Reference Range Comments MAGNESIUM (BEAKER) (test fdoh=635) 2.1 mg/dL 1.6-2.6 BASIC METABOLIC [id number] 04:08:00 Test Item Value Reference Range Comments SODIUM (BEAKER) (test 140 meq/L 136-145 keot=438) POTASSIUM (BEAKER) (test 4.8 meq/L 3.5-5.1 muzw=477) CHLORIDE (BEAKER) (test 105 meq/L 98-107 mvuf=129) CO2 (BEAKER) (test 28 meq/L 22-29 zhgk=396) BLOOD UREA NITROGEN 21 mg/dL 7-21 (BEAKER) (test ravs=714) CREATININE (BEAKER) (test 1.33 mg/dL 0.57-1.25 movu=709) GLUCOSE RANDOM (BEAKER) 123 mg/dL 70-105 (test nxzy=731) CALCIUM (BEAKER) (test 8.8 mg/dL 8.4-10.2 owqz=912) EGFR (BEAKER) (test 48 mL/min/1.73 sq m ESTIMATED GFR IS NOT fidp=7668) ACCURATE CREATININE CLEARANCE IN PREDICTING GLOMERULAR FILTRATION RATE. ESTIMATED GFR IS NOT APPLICABLE FOR DIALYSIS PATIENTS. [id number] 03:51:00 Test Item Value Reference Range Comments PARTIAL THROMBOPLASTIN TIME (BEAKER) (test 43.3 seconds 22.5-36.0 uytc=129) PROTHROMBIN TIME/[id number] 03:50:00 Test Item Value Reference Range Comments PROTIME (BEAKER) (test znds=985) 13.7 seconds 11.7-14.7 INR (BEAKER) (test rqqc=896) 1.0 <=5.9 RECOMMENDED COUMADIN/WARFARIN INR THERAPY RANGESSTANDARD DOSE: 2.0 - 3.0 Includes: PROPHYLAXIS forvenous thrombosis, systemic embolization; TREATMENT for venous thrombosis and/or pulmonary embolus.HIGH RISK: Target INR is 2.5-3.5 for patients with mechanical heart valves.CBC (HEMOGRAM ONLY)2018-07-13 03:24:00 Test Item Value Reference Range Comments WHITE BLOOD CELL COUNT (BEAKER) (test xsjf=373) 7.5 K/ L 3.5-10.5 RED BLOOD CELL COUNT (BEAKER) (test fkuw=976) 2.94 M/ L 3.93-5.22 HEMOGLOBIN (BEAKER) (test azhy=898) 9.1 GM/DL 11.2-15.7 HEMATOCRIT (BEAKER) (test inot=142) 30.9 % 34.1-44.9 MEAN CORPUSCULAR VOLUME (BEAKER) (test rzzw=567) 105.1 fL 79.4-94.8 MEAN CORPUSCULAR HEMOGLOBIN (BEAKER) (test 31.0 pg 25.6-32.2 mcbw=168) MEAN CORPUSCULAR HEMOGLOBIN CONC (BEAKER) (test 29.4 GM/DL 32.2-35.5 pbez=809) RED CELL DISTRIBUTION WIDTH (BEAKER) (test 19.8 % 11.7-14.4 cdzg=504) PLATELET COUNT (BEAKER) (test dbfo=465) 259 K/CU MM 150-450 MEAN PLATELET VOLUME (BEAKER) (test vcmo=870) 9.7 fL 9.4-12.3 NUCLEATED RED BLOOD CELLS (BEAKER) (test 0 /100 WBC 0-0 mphj=510) POCT-GLUCOSE [id number] 22:41:00 Test Item Value Reference Range Comments POC-GLUCOSE METER (BEAKER) 230 mg/dL 70-110 TESTED AT [address] (test uubo=9299) [place] [id number] POCT-GLUCOSE [id number] 18:56:00 Test Item Value Reference Range Comments POC-GLUCOSE METER (BEAKER) 98 mg/dL 70-110 TESTED AT [address] (test decx=4778) [place] [address] POCT-GLUCOSE [id number] 12:04:00 Test Item Value Reference Range Comments POC-GLUCOSE METER (BEAKER) 169 mg/dL 70-110 TESTED AT [address] (test uvof=7178) [place] [address] POCT-GLUCOSE [id number] 09:50:00 Test Item Value Reference Range Comments POC-GLUCOSE METER (BEAKER) 260 mg/dL 70-110 TESTED AT [address] (test baxh=9566) [place] [address] RAD, CHEST, 1 VIEW, NON [id number] 07:18:00Reason for exam:->post opShould this be performed at the bedside?->YesFINAL REPORT AP chest HISTORY: Postoperative. COMPARISON: 07/11/2018. IMPRESSION: Central line unchanged. Cardiomegaly. Thoracic aortic stent graft. Coarse interstitial markings similar to previous. Question developing right basilar atelectasis. No pneumothorax. Signed: Mitchel Jarquin MDReport Verified Date/ Time: 07/12/2018 07:18:25 Reading Location: [facility] Radiology Reading Room 07: 18 AMPOCT-GLUCOSE [id number] 06:54:00 Test Item Value Reference Range Comments POC-GLUCOSE METER (BEAKER) 193 mg/dL 70-110 TESTED AT [address] (test jbuj=5627) [place] [address] [id number] 04:51:00 Test Item Value Reference Range Comments PARTIAL THROMBOPLASTIN TIME (BEAKER) (test 42.6 seconds 22.5-36.0 vetd=570) PROTHROMBIN [id number] 04:42:00 Test Item Value Reference Range Comments PROTIME (BEAKER) (test nasv=777) 13.7 seconds 11.7-14.7 INR (BEAKER) (test krbr=266) 1.0 <=5.9 RECOMMENDED COUMADIN/WARFARIN INR THERAPY RANGESSTANDARD DOSE: 2.0 - 3.0 Includes: PROPHYLAXIS forvenous thrombosis, systemic embolization; TREATMENT for venous thrombosis and/or pulmonary embolus.HIGH RISK: Target INR is 2.5-3.5 for patients with mechanical heart valves.[id number] 04:31:00 Test Item Value Reference Range Comments PHOSPHORUS (BEAKER) (test borr=045) 2.4 mg/dL 2.3-4.7 [id number] 04:31:00 Test Item Value Reference Range Comments MAGNESIUM (BEAKER) (test zqec=298) 2.3 mg/dL 1.6-2.6 BASIC METABOLIC [id number] 04:31:00 Test Item Value Reference Range Comments SODIUM (BEAKER) (test 141 meq/L 136-145 whmu=151) POTASSIUM (BEAKER) (test 4.5 meq/L 3.5-5.1 ckcq=612) CHLORIDE (BEAKER) (test 106 meq/L 98-107 moyo=727) CO2 (BEAKER) (test 31 meq/L 22-29 bqrj=621) BLOOD UREA NITROGEN 26 mg/dL 7-21 (BEAKER) (test voks=521) CREATININE (BEAKER) (test 1.41 mg/dL 0.57-1.25 mabg=186) GLUCOSE RANDOM (BEAKER) 63 mg/dL 70-105 (test nqjf=047) CALCIUM (BEAKER) (test 8.7 mg/dL 8.4-10.2 apvh=338) EGFR (BEAKER) (test 45 mL/min/1.73 sq m ESTIMATED GFR IS NOT yysb=0119) ACCURATE CREATININE CLEARANCE IN PREDICTING GLOMERULAR FILTRATION RATE. ESTIMATED GFR IS NOT APPLICABLE FOR DIALYSIS PATIENTS. CBC (HEMOGRAM ONLY)2018-07-12 04:23:00 Test Item Value Reference Range Comments WHITE BLOOD CELL COUNT (BEAKER) (test ndaa=651) 7.0 K/ L 3.5-10.5 RED BLOOD CELL COUNT (BEAKER) (test zckl=445) 2.79 M/ L 3.93-5.22 HEMOGLOBIN (BEAKER) (test asps=159) 8.6 GM/DL 11.2-15.7 HEMATOCRIT (BEAKER) (test pymm=602) 28.3 % 34.1-44.9 MEAN CORPUSCULAR VOLUME (BEAKER) (test rzqj=020) 101.4 fL 79.4-94.8 MEAN CORPUSCULAR HEMOGLOBIN (BEAKER) (test 30.8 pg 25.6-32.2 ubmk=699) MEAN CORPUSCULAR HEMOGLOBIN CONC (BEAKER) (test 30.4 GM/DL 32.2-35.5 ewdn=583) RED CELL DISTRIBUTION WIDTH (BEAKER) (test 20.2 % 11.7-14.4 gnzi=480) PLATELET COUNT (BEAKER) (test eyfl=460) 276 K/CU MM 150-450 MEAN PLATELET VOLUME (BEAKER) (test cpzo=117) 10.3 fL 9.4-12.3 NUCLEATED RED BLOOD CELLS (BEAKER) (test 0 /100 WBC 0-0 xgay=598) POCT-GLUCOSE [id number] 00:19:00 Test Item Value Reference Range Comments POC-GLUCOSE METER (BEAKER) 404 mg/dL 70-110 TESTED AT [address] (test boks=6632) [facility] [address] POCT-GLUCOSE [id number] 18:10:00 Test Item Value Reference Range Comments POC-GLUCOSE METER (BEAKER) 268 mg/dL 70-110 TESTED AT [address] (test srly=7495) [facility] [address] POCT-GLUCOSE [id number] 12:22:00 Test Item Value Reference Range Comments POC-GLUCOSE METER (BEAKER) 221 mg/dL 70-110 TESTED AT [address] (test ssvx=9752) [facility] [address] RAD, CHEST, 1 VIEW, NON [id number] 07:27:00Reason for exam:->post opShould this be performed [...] MDReport Verified Date/Time: 2018 07:27:41 Reading Location: [facility] Radiology Reading Room POCT- GLUCOSE [id number] 05:28:00 Test Item Value Reference Range Comments POC-GLUCOSE METER (BEAKER) 166 mg/dL 70-110 TESTED AT [facility] [address] [facility] (test qoev=1816) [facility] [address] [id number] 04:08:00 Test Item Value Reference Range Comments PHOSPHORUS (BEAKER) (test tmwm=970) 3.0 mg/dL 2.3-4.7 [id number] 04:08:00 Test Item Value Reference Range Comments MAGNESIUM (BEAKER) (test puru=985) 1.8 mg/dL 1.6-2.6 BASIC METABOLIC [id number] 04:08:00 Test Item Value Reference Range Comments SODIUM (BEAKER) (test 138 meq/L 136-145 kjfp=473) POTASSIUM (BEAKER) (test 4.6 meq/L 3.5-5.1 fpog=414) CHLORIDE (BEAKER) (test 102 meq/L 98-107 pmpt=453) CO2 (BEAKER) (test 29 meq/L 22-29 ywmt=620) BLOOD UREA NITROGEN 28 mg/dL 7-21 (BEAKER) (test thzy=444) CREATININE (BEAKER) (test 1.64 mg/dL 0.57-1.25 utue=007) GLUCOSE RANDOM (BEAKER) 196 mg/dL 70-105 (test tsay=664) CALCIUM (BEAKER) (test 8.8 mg/dL 8.4-10.2 rycr=664) EGFR (BEAKER) (test 37 mL/min/1.73 sq m ESTIMATED GFR IS NOT tiqw=9783) ACCURATE CREATININE CLEARANCE IN PREDICTING GLOMERULAR FILTRATION RATE. ESTIMATED GFR IS NOT APPLICABLE FOR DIALYSIS PATIENTS. [id number] 04:06:00 Test Item Value Reference Range Comments PARTIAL THROMBOPLASTIN TIME (BEAKER) (test 51.7 seconds 22.5-36.0 gghw=808) PROTHROMBIN [id number] 04:05:00 Test Item Value Reference Range Comments PROTIME (BEAKER) (test jqju=032) 14.1 seconds 11.7-14.7 INR (BEAKER) (test fovt=881) 1.1 <=5.9 RECOMMENDED COUMADIN/WARFARIN INR THERAPY RANGESSTANDARD DOSE: 2.0 - 3.0 Includes: PROPHYLAXIS forvenous thrombosis, systemic embolization; TREATMENT for venous thrombosis and/or pulmonary embolus.HIGH RISK: Target INR is 2.5-3.5 for patients with mechanical heart valves.CBC (HEMOGRAM ONLY)2018-07-11 03:53:00 Test Item Value Reference Range Comments WHITE BLOOD CELL COUNT (BEAKER) (test sfoj=877) 6.3 K/ L 3.5-10.5 RED BLOOD CELL COUNT (BEAKER) (test hugb=328) 2.90 M/ L 3.93-5.22 HEMOGLOBIN (BEAKER) (test zjoy=545) 8.8 GM/DL 11.2-15.7 HEMATOCRIT (BEAKER) (test gtru=509) 29.7 % 34.1-44.9 MEAN CORPUSCULAR VOLUME (BEAKER) (test wmuj=812) 102.4 fL 79.4-94.8 MEAN CORPUSCULAR HEMOGLOBIN (BEAKER) (test 30.3 pg 25.6-32.2 xaos=950) MEAN CORPUSCULAR HEMOGLOBIN CONC (BEAKER) (test 29.6 GM/DL 32.2-35.5 upmi=567) RED CELL DISTRIBUTION WIDTH (BEAKER) (test 21.0 % 11.7-14.4 odtg=493) PLATELET COUNT (BEAKER) (test cjzj=398) 270 K/CU MM 150-450 MEAN PLATELET VOLUME (BEAKER) (test uqab=585) 10.1 fL 9.4-12.3 NUCLEATED RED BLOOD CELLS (BEAKER) (test 0 /100 WBC 0-0 fbje=606) POCT-GLUCOSE [id number] 00:38:00 Test Item Value Reference Range Comments POC-GLUCOSE METER (BEAKER) 198 mg/dL 70-110 TESTED AT [address] (test wvkg=3933) [place] [id number] POCT-GLUCOSE [id number] 18:42:00 Test Item Value Reference Range Comments POC-GLUCOSE METER (BEAKER) 240 mg/dL 70-110 TESTED AT [address] (test lniv=1152) [place] [id number] POCT-GLUCOSE [id number] 12:48:00 Test Item Value Reference Range Comments POC-GLUCOSE METER (BEAKER) 248 mg/dL 70-110 TESTED AT [address] (test akkb=6525) [place] [address] RAD, CHEST, 1 VIEW, NON [id number] 08:53:00Reason for exam:->post opShould this be performed [...] Mckeon Verified Date/Time: 07/10/2018 08:53:53 Reading Location: [address] Reading Room POCT-GLUCOSE [id number] 06:33:00 Test Item Value Reference Range Comments POC-GLUCOSE METER (BEAKER) 129 mg/dL 70-110 TESTED AT [address] (test xfws=8198) [place] [id number] POCT-GLUCOSE [id number] 05:36:00 Test Item Value Reference Range Comments POC-GLUCOSE METER (BEAKER) 55 mg/dL 70-110 TESTED AT [address] (test hfnj=7491) [place] [address] [id number] 04:15:00 Test Item Value Reference Range Comments PHOSPHORUS (BEAKER) (test hxtf=577) 3.0 mg/dL 2.3-4.7 [id number] 04:15:00 Test Item Value Reference Range Comments MAGNESIUM (BEAKER) (test isxz=342) 2.0 mg/dL 1.6-2.6 BASIC METABOLIC [id number] 04:15:00 Test Item Value Reference Range Comments SODIUM (BEAKER) (test 138 meq/L 136-145 chdv=544) POTASSIUM (BEAKER) (test 4.5 meq/L 3.5-5.1 praj=821) CHLORIDE (BEAKER) (test 103 meq/L 98-107 orce=029) CO2 (BEAKER) (test 27 meq/L 22-29 txof=131) BLOOD UREA NITROGEN 32 mg/dL 7-21 (BEAKER) (test ceeb=459) CREATININE (BEAKER) (test 1.55 mg/dL 0.57-1.25 owdp=972) GLUCOSE RANDOM (BEAKER) 121 mg/dL 70-105 (test wjzn=206) CALCIUM (BEAKER) (test 8.8 mg/dL 8.4-10.2 iuvn=145) EGFR (BEAKER) (test 40 mL/min/1.73 sq m ESTIMATED GFR IS NOT xcft=1863) ACCURATE CREATININE CLEARANCE IN PREDICTING GLOMERULAR FILTRATION RATE. ESTIMATED GFR IS NOT APPLICABLE FOR DIALYSIS PATIENTS. [id number] 03:41:00 Test Item Value Reference Range Comments PARTIAL THROMBOPLASTIN TIME (BEAKER) (test 50.1 seconds 22.5-36.0 ukto=352) PROTHROMBIN [id number] 03:40:00 Test Item Value Reference Range Comments PROTIME (BEAKER) (test cgql=170) 14.6 seconds 11.7-14.7 INR (BEAKER) (test afyt=594) 1.1 <=5.9 RECOMMENDED COUMADIN/WARFARIN INR THERAPY RANGESSTANDARD DOSE: 2.0 - 3.0 Includes: PROPHYLAXIS forvenous thrombosis, systemic embolization; TREATMENT for venous thrombosis and/or pulmonary embolus.HIGH RISK: Target INR is 2.5-3.5 for patients with mechanical heart valves.CBC (HEMOGRAM ONLY)2018-07-10 03:38:00 Test Item Value Reference Range Comments WHITE BLOOD CELL COUNT (BEAKER) (test ajsa=991) 6.3 K/ L 3.5-10.5 RED BLOOD CELL COUNT (BEAKER) (test cpzr=140) 2.47 M/ L 3.93-5.22 HEMOGLOBIN (BEAKER) (test upoj=025) 7.6 GM/DL 11.2-15.7 HEMATOCRIT (BEAKER) (test ljnw=181) 26.0 % 34.1-44.9 MEAN CORPUSCULAR VOLUME (BEAKER) (test ihoc=079) 105.3 fL 79.4-94.8 MEAN CORPUSCULAR HEMOGLOBIN (BEAKER) (test 30.8 pg 25.6-32.2 jxcz=289) MEAN CORPUSCULAR HEMOGLOBIN CONC (BEAKER) (test 29.2 GM/DL 32.2-35.5 mttx=543) RED CELL DISTRIBUTION WIDTH (BEAKER) (test 17.1 % 11.7-14.4 gmuu=069) PLATELET COUNT (BEAKER) (test rmkp=549) 301 K/CU MM 150-450 MEAN PLATELET VOLUME (BEAKER) (test fchr=028) 10.0 fL 9.4-12.3 NUCLEATED RED BLOOD CELLS (BEAKER) (test 0 /100 WBC 0-0 levz=684) POCT-GLUCOSE [id number] 00:03:00 Test Item Value Reference Range Comments POC-GLUCOSE METER (BEAKER) 317 mg/dL 70-110 Notified PAULA BERGER/TESTED AT [facility] (test gkjl=7083) [address] [place], [place] [id number] POCT-GLUCOSE [id number] 17:44:00 Test Item Value Reference Range Comments POC-GLUCOSE METER (BEAKER) 129 mg/dL 70-110 TESTED AT [address] (test ymtu=8932) [place] [id number] POCT-GLUCOSE [id number] 12:13:00 Test Item Value Reference Range Comments POC-GLUCOSE METER (BEAKER) 283 mg/dL 70-110 TESTED AT [address] (test rlxt=2236) [place] [id number] RAD, CHEST, 1 VIEW, NON [id number] 07:35:00Reason for exam:->post opShould this be performed [...] MDReport Verified Date/Time: 07/09/2018 07:35:48 Reading Location: [facility] B1 C013Y CT Body Reading Room POCT-GLUCOSE [id number] 05:13:00 Test Item Value Reference Range Comments POC-GLUCOSE METER (BEAKER) 186 mg/dL 70-110 TESTED AT [facility] [address] [facility] (test lhtv=5761) [facility] [address] [id number] 04:51:00 Test Item Value Reference Range Comments PHOSPHORUS (BEAKER) (test fwnp=239) 3.8 mg/dL 2.3-4.7 [id number] 04:51:00 Test Item Value Reference Range Comments MAGNESIUM (BEAKER) (test guvn=986) 2.1 mg/dL 1.6-2.6 BASIC METABOLIC [id number] 04:51:00 Test Item Value Reference Range Comments SODIUM (BEAKER) (test 138 meq/L 136-145 kdcu=210) POTASSIUM (BEAKER) (test 4.9 meq/L 3.5-5.1 rhvv=641) CHLORIDE (BEAKER) (test 103 meq/L 98-107 jzca=625) CO2 (BEAKER) (test 29 meq/L 22-29 enlt=580) BLOOD UREA NITROGEN 33 mg/dL 7-21 (BEAKER) (test byan=770) CREATININE (BEAKER) (test 1.78 mg/dL 0.57-1.25 uski=996) GLUCOSE RANDOM (BEAKER) 155 mg/dL 70-105 (test cffc=572) CALCIUM (BEAKER) (test 9.0 mg/dL 8.4-10.2 ulaz=341) EGFR (BEAKER) (test 34 mL/min/1.73 sq m ESTIMATED GFR IS NOT tcwh=2417) ACCURATE CREATININE CLEARANCE IN PREDICTING GLOMERULAR FILTRATION RATE. ESTIMATED GFR IS NOT APPLICABLE FOR DIALYSIS PATIENTS. [id number] 04:30:00 Test Item Value Reference Range Comments PARTIAL THROMBOPLASTIN TIME (BEAKER) (test 63.2 seconds 22.5-36.0 ndjy=670) PROTHROMBIN TIME/[id number] 04:29:00 Test Item Value Reference Range Comments PROTIME (BEAKER) (test ujlh=518) 14.6 seconds 11.7-14.7 INR (BEAKER) (test tbvp=527) 1.1 <=5.9 RECOMMENDED COUMADIN/WARFARIN INR THERAPY RANGESSTANDARD DOSE: 2.0 - 3.0 Includes: PROPHYLAXIS forvenous thrombosis, systemic embolization; TREATMENT for venous thrombosis and/or pulmonary embolus.HIGH RISK: Target INR is 2.5-3.5 for patients with mechanical heart valves.CBC (HEMOGRAM ONLY)2018-07-09 04:18:00 Test Item Value Reference Range Comments WHITE BLOOD CELL COUNT (BEAKER) (test wkjx=624) 6.8 K/ L 3.5-10.5 RED BLOOD CELL COUNT (BEAKER) (test ukbf=547) 2.73 M/ L 3.93-5.22 HEMOGLOBIN (BEAKER) (test qajb=501) 8.4 GM/DL 11.2-15.7 HEMATOCRIT (BEAKER) (test ogon=438) 28.7 % 34.1-44.9 MEAN CORPUSCULAR VOLUME (BEAKER) (test wlju=911) 105.1 fL 79.4-94.8 MEAN CORPUSCULAR HEMOGLOBIN (BEAKER) (test 30.8 pg 25.6-32.2 xjuz=635) MEAN CORPUSCULAR HEMOGLOBIN CONC (BEAKER) (test 29.3 GM/DL 32.2-35.5 obyy=188) RED CELL DISTRIBUTION WIDTH (BEAKER) (test 17.2 % 11.7-14.4 jjsx=280) PLATELET COUNT (BEAKER) (test pacf=701) 263 K/CU MM 150-450 MEAN PLATELET VOLUME (BEAKER) (test huhs=362) 9.9 fL 9.4-12.3 NUCLEATED RED BLOOD CELLS (BEAKER) (test 0 /100 WBC 0-0 juox=169) POCT-GLUCOSE [id number] 23:27:00 Test Item Value Reference Range Comments POC-GLUCOSE METER (BEAKER) 141 mg/dL 70-110 TESTED AT [facility] [address] [facility] (test oaul=0985) [facility] [address] POCT-GLUCOSE [id number] 19:30:00 Test Item Value Reference Range Comments POC-GLUCOSE METER (BEAKER) 234 mg/dL 70-110 TESTED AT [address] (test kbqo=3644) [facility] [address] POCT-GLUCOSE [id number] 11:55:00 Test Item Value Reference Range Comments POC-GLUCOSE METER (BEAKER) 317 mg/dL 70-110 TESTED AT [address] (test amui=2595) [facility] [address] [id number] 05:14:00 Test Item Value Reference Range Comments PHOSPHORUS (BEAKER) (test apkt=371) 3.8 mg/dL 2.3-4.7 [id number] 05:14:00 Test Item Value Reference Range Comments MAGNESIUM (BEAKER) (test clee=277) 2.1 mg/dL 1.6-2.6 BASIC METABOLIC [id number] 05:14:00 Test Item Value Reference Range Comments SODIUM (BEAKER) (test 137 meq/L 136-145 njvh=787) POTASSIUM (BEAKER) (test 4.6 meq/L 3.5-5.1 qxbp=278) CHLORIDE (BEAKER) (test 103 meq/L 98-107 atcq=279) CO2 (BEAKER) (test 26 meq/L 22-29 wohv=305) BLOOD UREA NITROGEN 31 mg/dL 7-21 (BEAKER) (test yrgo=256) CREATININE (BEAKER) (test 1.63 mg/dL 0.57-1.25 pubx=361) GLUCOSE RANDOM (BEAKER) 244 mg/dL 70-105 (test ggre=103) CALCIUM (BEAKER) (test 9.2 mg/dL 8.4-10.2 gcei=800) EGFR (BEAKER) (test 38 mL/min/1.73 sq m ESTIMATED GFR IS NOT rocu=5199) ACCURATE CREATININE CLEARANCE IN PREDICTING GLOMERULAR FILTRATION RATE. ESTIMATED GFR IS NOT APPLICABLE FOR DIALYSIS PATIENTS. RAD, CHEST, 1 VIEW, NON [id number] 04:48:00Reason for exam:->post opShould this be performed [...] Verified Date/Time: 07/08/2018 04:48:56 Reading Location : [address] Reading Room Electronicallysigned by: NAVI GARCIA M.D. on 07/08/2018 04:48 [id number] 04:24:00 Test Item Value Reference Range Comments PARTIAL THROMBOPLASTIN TIME (BEAKER) (test 54.7 seconds 22.5-36.0 twjl=299) PROTHROMBIN TIME/[id number] 04:23:00 Test Item Value Reference Range Comments PROTIME (BEAKER) (test bwzi=103) 14.8 seconds 11.7-14.7 INR (BEAKER) (test fohy=141) 1.2 <=5.9 RECOMMENDED COUMADIN/WARFARIN INR THERAPY RANGESSTANDARD DOSE: 2.0 - 3.0 Includes: PROPHYLAXIS forvenous thrombosis, systemic embolization; TREATMENT for venous thrombosis and/or pulmonary embolus.HIGH RISK: Target INR is 2.5-3.5 for patients with mechanical heart valves.CBC (HEMOGRAM ONLY)2018-07-08 04:02:00 Test Item Value Reference Range Comments WHITE BLOOD CELL COUNT (BEAKER) (test mhag=374) 6.7 K/ L 3.5-10.5 RED BLOOD CELL COUNT (BEAKER) (test ztwy=661) 2.79 M/ L 3.93-5.22 HEMOGLOBIN (BEAKER) (test togr=912) 8.6 GM/DL 11.2-15.7 HEMATOCRIT (BEAKER) (test mafo=191) 29.0 % 34.1-44.9 MEAN CORPUSCULAR VOLUME (BEAKER) (test wzha=795) 103.9 fL 79.4-94.8 MEAN CORPUSCULAR HEMOGLOBIN (BEAKER) (test 30.8 pg 25.6-32.2 wunj=156) MEAN CORPUSCULAR HEMOGLOBIN CONC (BEAKER) (test 29.7 GM/DL 32.2-35.5 ukyf=383) RED CELL DISTRIBUTION WIDTH (BEAKER) (test 17.2 % 11.7-14.4 hjva=836) PLATELET COUNT (BEAKER) (test stzk=276) 295 K/CU MM 150-450 MEAN PLATELET VOLUME (BEAKER) (test usuj=260) 10.2 fL 9.4-12.3 NUCLEATED RED BLOOD CELLS (BEAKER) (test 0 /100 WBC 0-0 dnta=193) RAD, CHEST, 1 VIEW, NON [id number] 08:41:00Reason for exam:->post opShould this be performed [...] MDReport Verified Date/Time: 07/07/2018 08:41:39 Reading Location: [facility] Radiology Reading Room [id number] 05:37:00 Test Item Value Reference Range Comments PHOSPHORUS (BEAKER) (test qbfv=738) 3.0 mg/dL 2.3-4.7 [id number] 05:37:00 Test Item Value Reference Range Comments MAGNESIUM (BEAKER) (test ujcv=863) 2.1 mg/dL 1.6-2.6 BASIC METABOLIC [id number] 05:37:00 Test Item Value Reference Range Comments SODIUM (BEAKER) (test 137 meq/L 136-145 dyqe=497) POTASSIUM (BEAKER) (test 4.6 meq/L 3.5-5.1 sqsj=114) CHLORIDE (BEAKER) (test 102 meq/L 98-107 gktx=538) CO2 (BEAKER) (test 25 meq/L 22-29 uklr=015) BLOOD UREA NITROGEN 27 mg/dL 7-21 (BEAKER) (test ltjm=725) CREATININE (BEAKER) (test 1.44 mg/dL 0.57-1.25 xuxp=929) GLUCOSE RANDOM (BEAKER) 191 mg/dL 70-105 (test dhqz=458) CALCIUM (BEAKER) (test 9.2 mg/dL 8.4-10.2 rpkv=677) EGFR (BEAKER) (test 43 mL/min/1.73 sq m ESTIMATED GFR IS NOT rsjg=2211) ACCURATE CREATININE CLEARANCE IN PREDICTING GLOMERULAR FILTRATION RATE. ESTIMATED GFR IS NOT APPLICABLE FOR DIALYSIS PATIENTS. [id number] 05:12:00 Test Item Value Reference Range Comments PARTIAL THROMBOPLASTIN TIME (BEAKER) (test 42.9 seconds 22.5-36.0 cerx=947) PROTHROMBIN TIME/[id number] 05:11:00 Test Item Value Reference Range Comments PROTIME (BEAKER) (test pwfz=077) 14.1 seconds 11.7-14.7 INR (BEAKER) (test drvt=710) 1.1 <=5.9 RECOMMENDED COUMADIN/WARFARIN INR THERAPY RANGESSTANDARD DOSE: 2.0 - 3.0 Includes: PROPHYLAXIS forvenous thrombosis, systemic embolization; TREATMENT for venous thrombosis and/or pulmonary embolus.HIGH RISK: Target INR is 2.5-3.5 for patients with mechanical heart valves.CBC (HEMOGRAM ONLY)2018-07-07 05:01:00 Test Item Value Reference Range Comments WHITE BLOOD CELL COUNT (BEAKER) (test ioco=359) 6.9 K/ L 3.5-10.5 RED BLOOD CELL COUNT (BEAKER) (test jdom=057) 2.84 M/ L 3.93-5.22 HEMOGLOBIN (BEAKER) (test iedg=205) 8.8 GM/DL 11.2-15.7 HEMATOCRIT (BEAKER) (test hpsg=957) 29.2 % 34.1-44.9 MEAN CORPUSCULAR VOLUME (BEAKER) (test mxws=914) 102.8 fL 79.4-94.8 MEAN CORPUSCULAR HEMOGLOBIN (BEAKER) (test 31.0 pg 25.6-32.2 pyvi=405) MEAN CORPUSCULAR HEMOGLOBIN CONC (BEAKER) (test 30.1 GM/DL 32.2-35.5 xvsd=744) RED CELL DISTRIBUTION WIDTH (BEAKER) (test 17.0 % 11.7-14.4 ftem=408) PLATELET COUNT (BEAKER) (test iwxi=887) 270 K/CU MM 150-450 MEAN PLATELET VOLUME (BEAKER) (test qsdi=668) 10.2 fL 9.4-12.3 NUCLEATED RED BLOOD CELLS (BEAKER) (test 0 /100 WBC 0-0 xpkl=565) RAD, CHEST, 1 VIEW, NON [id number] 17:48:00Reason for exam:->Confirm PICC line placementShould this [...] or definite pleural effusion. Signed: [facility] Rico [facility] Verified Date/Time: 07/06/2018 17:48:54 Reading Location: [facility] [id number] Consult Reading Room Electronically signed by: GEO RICO M.D. on 2018 05:48 [id number] 17:23:00 Test Item Value Reference Range Comments MAGNESIUM (BEAKER) (test wvkw=884) 2.2 mg/dL 1.6-2.6 BASIC METABOLIC [id number] 17:23:00 Test Item Value Reference Range Comments SODIUM (BEAKER) (test 137 meq/L 136-145 gygu=246) POTASSIUM (BEAKER) (test 4.9 meq/L 3.5-5.1 kkxu=675) CHLORIDE (BEAKER) (test 103 meq/L 98-107 mkgb=164) CO2 (BEAKER) (test 25 meq/L 22-29 vdrn=675) BLOOD UREA NITROGEN 25 mg/dL 7-21 (BEAKER) (test efpk=299) CREATININE (BEAKER) (test 1.41 mg/dL 0.57-1.25 lqcp=218) GLUCOSE RANDOM (BEAKER) 219 mg/dL 70-105 (test lllf=065) CALCIUM (BEAKER) (test 9.0 mg/dL 8.4-10.2 xnpd=064) EGFR (BEAKER) (test 45 mL/min/1.73 sq m ESTIMATED GFR IS NOT izxb=0786) ACCURATE CREATININE CLEARANCE IN PREDICTING GLOMERULAR FILTRATION RATE. ESTIMATED GFR IS NOT APPLICABLE FOR DIALYSIS PATIENTS. BLOOD GAS, [id number] 16:33:00 Test Item Value Reference Range Comments PH ARTERIAL (BEAKER) (test lyjo=490) 7.46 7.35-7.45 PCO2 ARTERIAL (BEAKER) (test oqcg=096) 42 mmHg 35-45 PO2 ARTERIAL (BEAKER) (test kwev=170) 63 mmHg 80-90 O2 SATURATION ARTERIAL (BEAKER) (test dlyb=950) 93.1 % 96.0-97.0 HCO3 ARTERIAL (BEAKER) (test xxcs=665) 29 mmol/L 21-29 BASE EXCESS ARTERIAL (BEAKER) (test uyqz=830) 4.4 mmol/L -2.0-3.0 PATIENT TEMPERATURE (BEAKER) (test wqun=8628) 37.0 C FIO2 (BEAKER) (test qiec=3588) 32.0 % RAD, CHEST, 1 VIEW, NON [id number] 13:22:00Reason for exam:->post opShould this be performed at the bedside?->YesFINAL REPORT Chest one view. Clinical history: post op Comparison: 07/05/2018 Discussion: A frontal chest is provided. Cardiomediastinal contours are unchanged. A left IJ line is in stable position. There is mild pulmonary edema. No new consolidation. No pneumothorax. Small bilateral pleural effusions are present. Signed: Morgan Chengeport Verified Date/Time: 07/06/2018 13:22:02 Reading Location: [facility] [id number] Consult Reading Room [id number] 04:30:00 Test Item Value Reference Range Comments PHOSPHORUS (BEAKER) (test zsic=004) 3.2 mg/dL 2.3-4.7 [id number] 04:30:00 Test Item Value Reference Range Comments MAGNESIUM (BEAKER) (test jzkt=743) 2.2 mg/dL 1.6-2.6 BASIC METABOLIC [id number] 04:30:00 Test Item Value Reference Range Comments SODIUM (BEAKER) (test 138 meq/L 136-145 poko=248) POTASSIUM (BEAKER) (test 4.4 meq/L 3.5-5.1 icbc=123) CHLORIDE (BEAKER) (test 104 meq/L 98-107 elij=239) CO2 (BEAKER) (test 28 meq/L 22-29 brri=784) BLOOD UREA NITROGEN 25 mg/dL 7-21 (BEAKER) (test sifp=009) CREATININE (BEAKER) (test 1.43 mg/dL 0.57-1.25 ovpk=174) GLUCOSE RANDOM (BEAKER) 207 mg/dL 70-105 (test uupf=775) CALCIUM (BEAKER) (test 8.9 mg/dL 8.4-10.2 enpn=966) EGFR (BEAKER) (test 44 mL/min/1.73 sq m ESTIMATED GFR IS NOT bkvt=8821) ACCURATE CREATININE CLEARANCE IN PREDICTING GLOMERULAR FILTRATION RATE. ESTIMATED GFR IS NOT APPLICABLE FOR DIALYSIS PATIENTS. PROTHROMBIN [id number] 04:06:00 Test Item Value Reference Range Comments PROTIME (BEAKER) (test imgy=361) 14.6 seconds 11.7-14.7 INR (BEAKER) (test fifl=537) 1.1 <=5.9 RECOMMENDED COUMADIN/WARFARIN INR THERAPY RANGESSTANDARD DOSE: 2.0 - 3.0 Includes: PROPHYLAXIS forvenous thrombosis, systemic embolization; TREATMENT for venous thrombosis and/or pulmonary embolus.HIGH RISK: Target INR is 2.5-3.5 for patients with mechanical heart valves.[id number] 04:06:00 Test Item Value Reference Range Comments PARTIAL THROMBOPLASTIN TIME (BEAKER) (test 47.8 seconds 22.5-36.0 tnvj=576) CBC (HEMOGRAM ONLY)2018-07-06 03:53:00 Test Item Value Reference Range Comments WHITE BLOOD CELL COUNT (BEAKER) (test pigt=881) 7.1 K/ L 3.5-10.5 RED BLOOD CELL COUNT (BEAKER) (test oiey=095) 2.77 M/ L 3.93-5.22 HEMOGLOBIN (BEAKER) (test hrpx=188) 8.4 GM/DL 11.2-15.7 HEMATOCRIT (BEAKER) (test hhcf=717) 28.6 % 34.1-44.9 MEAN CORPUSCULAR VOLUME (BEAKER) (test ellz=923) 103.2 fL 79.4-94.8 MEAN CORPUSCULAR HEMOGLOBIN (BEAKER) (test 30.3 pg 25.6-32.2 kddb=543) MEAN CORPUSCULAR HEMOGLOBIN CONC (BEAKER) (test 29.4 GM/DL 32.2-35.5 pgcq=810) RED CELL DISTRIBUTION WIDTH (BEAKER) (test 17.1 % 11.7-14.4 imje=594) PLATELET COUNT (BEAKER) (test rhyd=980) 267 K/CU MM 150-450 MEAN PLATELET VOLUME (BEAKER) (test zedb=195) 9.9 fL 9.4-12.3 NUCLEATED RED BLOOD CELLS (BEAKER) (test 0 /100 WBC 0-0 zcah=492) HEPATIC FUNCTION [id number] 17:51:00 Test Item Value Reference Range Comments TOTAL PROTEIN (BEAKER) (test rvsh=186) 6.2 gm/dL 6.0-8.3 ALBUMIN (BEAKER) (test yftc=4650) 3.2 g/dL 3.5-5.0 BILIRUBIN TOTAL (BEAKER) (test qdrh=719) 0.7 mg/dL 0.2-1.2 BILIRUBIN DIRECT (BEAKER) (test cmyg=180) 0.5 mg/dL 0.1-0.5 ALKALINE PHOSPHATASE (BEAKER) (test hqhz=802) 84 U/L 40-150 AST (SGOT) (BEAKER) (test rusr=449) 16 U/L 5-34 ALT (SGPT) (BEAKER) (test wmca=485) 9 U/L 6-55 RAD, CHEST, 1 VIEW, NON [id number] 08:39:00Reason for exam:->post opShould this be performed [...] significant change. Signed: Willian Mckeoneport Verified Date/Time: 07/05/2018 08:39:46 Reading Location: [facility] Radiology Reading Room [id number] 04:33:00 Test Item Value Reference Range Comments MAGNESIUM (BEAKER) (test 2.6 mg/dL 1.6-2.6 Specimen slightly hemolyzed omdo=709) [id number] 04:33:00 Test Item Value Reference Range Comments PHOSPHORUS (BEAKER) (test 2.9 mg/dL 2.3-4.7 Specimen slightly hemolyzed hjqc=472) BASIC METABOLIC [id number] 04:33:00 Test Item Value Reference Range Comments SODIUM (BEAKER) (test 139 meq/L 136-145 zxqs=041) POTASSIUM (BEAKER) (test 4.5 meq/L 3.5-5.1 Specimen slightly mnds=710) hemolyzed CHLORIDE (BEAKER) (test 105 meq/L 98-107 bxwa=678) CO2 (BEAKER) (test 28 meq/L 22-29 nddp=584) BLOOD UREA NITROGEN 26 mg/dL 7-21 (BEAKER) (test xnwz=472) CREATININE (BEAKER) (test 1.32 mg/dL 0.57-1.25 Specimen slightly ovkr=486) hemolyzed GLUCOSE RANDOM (BEAKER) 111 mg/dL 70-105 (test lleh=193) CALCIUM (BEAKER) (test 8.5 mg/dL 8.4-10.2 vlfq=012) EGFR (BEAKER) (test 48 mL/min/1.73 sq m ESTIMATED GFR IS NOT qorm=7961) ACCURATE CREATININE CLEARANCE IN PREDICTING GLOMERULAR FILTRATION RATE. ESTIMATED GFR IS NOT APPLICABLE FOR DIALYSIS PATIENTS. [id number] 04:23:00 Test Item Value Reference Range Comments PARTIAL THROMBOPLASTIN TIME (BEAKER) (test 49.0 seconds 22.5-36.0 zagc=560) PROTHROMBIN [id number] 04:22:00 Test Item Value Reference Range Comments PROTIME (BEAKER) (test jzen=189) 14.3 seconds 11.7-14.7 INR (BEAKER) (test fmnw=604) 1.1 <=5.9 RECOMMENDED COUMADIN/WARFARIN INR THERAPY RANGESSTANDARD DOSE: 2.0 - 3.0 Includes: PROPHYLAXIS forvenous thrombosis, systemic embolization; TREATMENT for venous thrombosis and/or pulmonary embolus.HIGH RISK: Target INR is 2.5-3.5 for patients with mechanical heart valves.CBC (HEMOGRAM ONLY)2018-07-05 04:13:00 Test Item Value Reference Range Comments WHITE BLOOD CELL COUNT (BEAKER) (test gbod=355) 6.6 K/ L 3.5-10.5 RED BLOOD CELL COUNT (BEAKER) (test nzib=519) 2.60 M/ L 3.93-5.22 HEMOGLOBIN (BEAKER) (test gnnd=307) 7.9 GM/DL 11.2-15.7 HEMATOCRIT (BEAKER) (test bkjp=851) 26.5 % 34.1-44.9 MEAN CORPUSCULAR VOLUME (BEAKER) (test tafu=186) 101.9 fL 79.4-94.8 MEAN CORPUSCULAR HEMOGLOBIN (BEAKER) (test 30.4 pg 25.6-32.2 fpfw=755) MEAN CORPUSCULAR HEMOGLOBIN CONC (BEAKER) (test 29.8 GM/DL 32.2-35.5 lhmr=308) RED CELL DISTRIBUTION WIDTH (BEAKER) (test 17.4 % 11.7-14.4 btlj=428) PLATELET COUNT (BEAKER) (test imih=232) 248 K/CU MM 150-450 MEAN PLATELET VOLUME (BEAKER) (test trgd=362) 10.4 fL 9.4-12.3 NUCLEATED RED BLOOD CELLS (BEAKER) (test 0 /100 WBC 0-0 oqqj=744) POCT-GLUCOSE [id number] 18:22:00 Test Item Value Reference Range Comments POC-GLUCOSE METER (BEAKER) 166 mg/dL 70-110 TESTED AT [facility] [address] (test ibwz=0518) [place] [address] RAD, CHEST, 1 VIEW, NON [id number] 08:37:00Reason for exam:->post opShould this be performed [...] Diaz Verified Date/Time: 07/04/2018 08:37:54 Reading Location: [facility] Radiology Reading Room Electronically signed by: VIRGINIA DIAZ M.D. on 2018 08:37 [id number] 04:36:00 Test Item Value Reference Range Comments PARTIAL THROMBOPLASTIN TIME (BEAKER) (test 49.7 seconds 22.5-36.0 lqoi=576) PROTHROMBIN [id number] 04:35:00 Test Item Value Reference Range Comments PROTIME (BEAKER) (test ijuu=213) 15.0 seconds 11.7-14.7 INR (BEAKER) (test xuqi=471) 1.2 <=5.9 RECOMMENDED COUMADIN/WARFARIN INR THERAPY RANGESSTANDARD DOSE: 2.0 - 3.0 Includes: PROPHYLAXIS forvenous thrombosis, systemic embolization; TREATMENT for venous thrombosis and/or pulmonary embolus.HIGH RISK: Target INR is 2.5-3.5 for patients with mechanical heart valves.[id number] 04:35:00 Test Item Value Reference Range Comments PHOSPHORUS (BEAKER) (test eota=369) 2.5 mg/dL 2.3-4.7 [id number] 04:35:00 Test Item Value Reference Range Comments MAGNESIUM (BEAKER) (test quwe=530) 2.2 mg/dL 1.6-2.6 BASIC METABOLIC [id number] 04:35:00 Test Item Value Reference Range Comments SODIUM (BEAKER) (test 138 meq/L 136-145 modi=567) POTASSIUM (BEAKER) (test 3.8 meq/L 3.5-5.1 zrol=022) CHLORIDE (BEAKER) (test 102 meq/L 98-107 vcxe=311) CO2 (BEAKER) (test 30 meq/L 22-29 cydl=806) BLOOD UREA NITROGEN 28 mg/dL 7-21 (BEAKER) (test pxfi=208) CREATININE (BEAKER) (test 1.48 mg/dL 0.57-1.25 pfpk=405) GLUCOSE RANDOM (BEAKER) 175 mg/dL 70-105 (test zspy=899) CALCIUM (BEAKER) (test 8.6 mg/dL 8.4-10.2 hdqj=554) EGFR (BEAKER) (test 42 mL/min/1.73 sq m ESTIMATED GFR IS NOT dsno=3808) ACCURATE CREATININE CLEARANCE IN PREDICTING GLOMERULAR FILTRATION RATE. ESTIMATED GFR IS NOT APPLICABLE FOR DIALYSIS PATIENTS. CBC (HEMOGRAM ONLY)2018-07-04 04:16:00 Test Item Value Reference Range Comments WHITE BLOOD CELL COUNT (BEAKER) (test hrvx=691) 7.4 K/ L 3.5-10.5 RED BLOOD CELL COUNT (BEAKER) (test jknx=577) 2.76 M/ L 3.93-5.22 HEMOGLOBIN (BEAKER) (test wcqc=457) 8.5 GM/DL 11.2-15.7 HEMATOCRIT (BEAKER) (test cyos=344) 28.1 % 34.1-44.9 MEAN CORPUSCULAR VOLUME (BEAKER) (test isru=354) 101.8 fL 79.4-94.8 MEAN CORPUSCULAR HEMOGLOBIN (BEAKER) (test 30.8 pg 25.6-32.2 skid=328) MEAN CORPUSCULAR HEMOGLOBIN CONC (BEAKER) (test 30.2 GM/DL 32.2-35.5 dnrw=311) RED CELL DISTRIBUTION WIDTH (BEAKER) (test 17.7 % 11.7-14.4 injv=704) PLATELET COUNT (BEAKER) (test mpjd=667) 268 K/CU MM 150-450 MEAN PLATELET VOLUME (BEAKER) (test qjbe=476) 10.2 fL 9.4-12.3 NUCLEATED RED BLOOD CELLS (BEAKER) (test 0 /100 WBC 0-0 flpd=465) [id number] 10:56:00 Test Item Value Reference Range Comments POTASSIUM (BEAKER) (test wihx=177) 4.3 meq/L 3.5-5.1 Check Serum Potassium level 30 minutes after IV potassium replacement completed.RAD, CHEST, 1 VIEW, NON [id number] 08:24:00Reason for exam:-> post opShould this be [...] MDReport Verified Date/Time: 07/03/2018 08:24:18 Reading Location: [facility] Radiology Reading Room POCT-GLUCOSE [id number] 08:16:00 Test Item Value Reference Range Comments POC-GLUCOSE METER (BEAKER) 164 mg/dL 70-110 TESTED AT [address] (test tnko=3555) [facility] [address] RAD, ABDOMEN/KUB, 1 VIEW [id number] 06:21:00Reason for exam:->abd painShould this be performed [...] Spann Verified Date/Time: 07/03/2018 06:21:16 Reading Location: [address] Transitional Reading Room [id number] 04:00:00 Test Item Value Reference Range Comments PHOSPHORUS (BEAKER) (test nxlq=728) 2.3 mg/dL 2.3-4.7 [id number] 04:00:00 Test Item Value Reference Range Comments MAGNESIUM (BEAKER) (test ylwg=112) 1.9 mg/dL 1.6-2.6 BASIC METABOLIC [id number] 04:00:00 Test Item Value Reference Range Comments SODIUM (BEAKER) (test 139 meq/L 136-145 ecjq=909) POTASSIUM (BEAKER) (test 3.5 meq/L 3.5-5.1 bhwa=353) CHLORIDE (BEAKER) (test 103 meq/L 98-107 cnzq=251) CO2 (BEAKER) (test 27 meq/L 22-29 drkl=798) BLOOD UREA NITROGEN 27 mg/dL 7-21 (BEAKER) (test rycj=681) CREATININE (BEAKER) (test 1.40 mg/dL 0.57-1.25 raoj=016) GLUCOSE RANDOM (BEAKER) 123 mg/dL 70-105 (test iyia=094) CALCIUM (BEAKER) (test 8.9 mg/dL 8.4-10.2 uxpl=812) EGFR (BEAKER) (test 45 mL/min/1.73 sq m ESTIMATED GFR IS NOT vcgx=5152) ACCURATE CREATININE CLEARANCE IN PREDICTING GLOMERULAR FILTRATION RATE. ESTIMATED GFR IS NOT APPLICABLE FOR DIALYSIS PATIENTS. [id number] 03:59:00 Test Item Value Reference Range Comments PARTIAL THROMBOPLASTIN TIME (BEAKER) (test 48.9 seconds 22.5-36.0 inms=744) PROTHROMBIN TIME/[id number] 03:58:00 Test Item Value Reference Range Comments PROTIME (BEAKER) (test vkor=665) 15.3 seconds 11.7-14.7 INR (BEAKER) (test fgwy=654) 1.2 <=5.9 RECOMMENDED COUMADIN/WARFARIN INR THERAPY RANGESSTANDARD DOSE: 2.0 - 3.0 Includes: PROPHYLAXIS forvenous thrombosis, systemic embolization; TREATMENT for venous thrombosis and/or pulmonary embolus.HIGH RISK: Target INR is 2.5-3.5 for patients with mechanical heart valves.CBC (HEMOGRAM ONLY)2018-07-03 03:39:00 Test Item Value Reference Range Comments WHITE BLOOD CELL COUNT (BEAKER) (test zgxz=656) 8.1 K/ L 3.5-10.5 RED BLOOD CELL COUNT (BEAKER) (test qqcu=945) 2.90 M/ L 3.93-5.22 HEMOGLOBIN (BEAKER) (test ulsw=753) 9.0 GM/DL 11.2-15.7 HEMATOCRIT (BEAKER) (test bjrg=525) 29.4 % 34.1-44.9 MEAN CORPUSCULAR VOLUME (BEAKER) (test aqdm=198) 101.4 fL 79.4-94.8 MEAN CORPUSCULAR HEMOGLOBIN (BEAKER) (test 31.0 pg 25.6-32.2 ptrq=737) MEAN CORPUSCULAR HEMOGLOBIN CONC (BEAKER) (test 30.6 GM/DL 32.2-35.5 nlqv=261) RED CELL DISTRIBUTION WIDTH (BEAKER) (test 17.8 % 11.7-14.4 znks=115) PLATELET COUNT (BEAKER) (test nqdx=143) 245 K/CU MM 150-450 MEAN PLATELET VOLUME (BEAKER) (test iwwi=573) 9.8 fL 9.4-12.3 NUCLEATED RED BLOOD CELLS (BEAKER) (test 0 /100 WBC 0-0 bjdx=390) OXYGEN SATURATION, [id number] 10:53:00 Test Item Value Reference Range Comments O2 SATURATION (MEASURED) (BEAKER) (test vkac=3445) 50.1 % OXYGEN SATURATION, [id number] 08:54:00 Test Item Value Reference Range Comments O2 SATURATION (MEASURED) (BEAKER) (test aech=3754) 45.3 % BLOOD GAS, [id number] 08:54:00 Test Item Value Reference Range Comments PH ARTERIAL (BEAKER) (test ueqa=475) 7.49 7.35-7.45 PCO2 ARTERIAL (BEAKER) (test mixn=850) 39 mmHg 35-45 PO2 ARTERIAL (BEAKER) (test dkqi=132) 64 mmHg 80-90 O2 SATURATION ARTERIAL (BEAKER) (test ihyw=069) 94.6 % 96.0-97.0 HCO3 ARTERIAL (BEAKER) (test ommi=374) 29 mmol/L 21-29 BASE EXCESS ARTERIAL (BEAKER) (test pvub=205) 5.1 mmol/L -2.0-3.0 PATIENT TEMPERATURE (BEAKER) (test unkx=1275) 36.1 C FIO2 (BEAKER) (test shak=3754) 32.0 % RAD, CHEST, 1 VIEW, NON [id number] 06:40:00Reason for exam:->ETTShould this be performed at the bedside?->YesFINAL REPORT RAD , CHEST, 1 VIEW, NON DEPT INDICATION: ETT COMPARISON: Prior day's exam FINDINGS : Portable frontal view of the chest. IMPRESSION: Support Lines: Stable. Lungs and pleura: Unchanged airspace and pleural opacities. No pneumothorax.Heart and mediastinum: Stable contours. Stable surgical changes.Additional findings: None. Signed: Maryana Spann Verified Date/Time: 07/02/2018 06:40:32 Reading Location: [address] Transitional Reading Room CBC W/PLT COUNT & AUTO [id number] 05:31 :00 Test Item Value Reference Range Comments WHITE BLOOD CELL COUNT (BEAKER) (test bhlw=565) 7.9 K/ L 3.5-10.5 RED BLOOD CELL COUNT (BEAKER) (test xxbz=854) 2.83 M/ L 3.93-5.22 HEMOGLOBIN (BEAKER) (test azkz=473) 8.6 GM/DL 11.2-15.7 HEMATOCRIT (BEAKER) (test shxy=943) 28.4 % 34.1-44.9 MEAN CORPUSCULAR VOLUME (BEAKER) (test kzjo=058) 100.4 fL 79.4-94.8 MEAN CORPUSCULAR HEMOGLOBIN (BEAKER) (test 30.4 pg 25.6-32.2 whap=863) MEAN CORPUSCULAR HEMOGLOBIN CONC (BEAKER) (test 30.3 GM/DL 32.2-35.5 bnfs=294) RED CELL DISTRIBUTION WIDTH (BEAKER) (test 17.9 % 11.7-14.4 zjtv=558) PLATELET COUNT (BEAKER) (test qclv=140) 222 K/CU MM 150-450 MEAN PLATELET VOLUME (BEAKER) (test lhbm=477) 9.9 fL 9.4-12.3 NUCLEATED RED BLOOD CELLS (BEAKER) (test 0 /100 WBC 0-0 mjvg=795) NEUTROPHILS RELATIVE PERCENT (BEAKER) (test 85 % alwv=308) LYMPHOCYTES RELATIVE PERCENT (BEAKER) (test 6 % unsk=854) MONOCYTES RELATIVE PERCENT (BEAKER) (test 8 % lcse=317) EOSINOPHILS RELATIVE PERCENT (BEAKER) (test 1 % rrmw=334) BASOPHILS RELATIVE PERCENT (BEAKER) (test 0 % zmbh=528) NEUTROPHILS ABSOLUTE COUNT (BEAKER) (test 6.67 K/ L 1.56-6.13 nunn=289) LYMPHOCYTES ABSOLUTE COUNT (BEAKER) (test 0.46 K/ L 1.18-3.74 xvhw=672) MONOCYTES ABSOLUTE COUNT (BEAKER) (test 0.64 K/ L 0.24-0.36 umig=003) EOSINOPHILS ABSOLUTE COUNT (BEAKER) (test 0.06 K/ L 0.04-0.36 lhdf=161) BASOPHILS ABSOLUTE COUNT (BEAKER) (test 0.02 K/ L 0.01-0.08 jyvr=291) IMMATURE GRANULOCYTES-RELATIVE PERCENT (BEAKER) 1 % 0-1 (test vyfe=3024) BASIC METABOLIC [id number] 04:54:00 Test Item Value Reference Range Comments SODIUM (BEAKER) (test 140 meq/L 136-145 aygj=497) POTASSIUM (BEAKER) (test 3.7 meq/L 3.5-5.1 uaxv=191) CHLORIDE (BEAKER) (test 104 meq/L 98-107 ovhg=432) CO2 (BEAKER) (test 28 meq/L 22-29 pvpn=238) BLOOD UREA NITROGEN 29 mg/dL 7-21 (BEAKER) (test lznw=570) CREATININE (BEAKER) (test 1.49 mg/dL 0.57-1.25 lzcc=418) GLUCOSE RANDOM (BEAKER) 107 mg/dL 70-105 (test qjzq=118) CALCIUM (BEAKER) (test 8.9 mg/dL 8.4-10.2 mzla=614) EGFR (BEAKER) (test 42 mL/min/1.73 sq m ESTIMATED GFR IS NOT yirx=8741) ACCURATE CREATININE CLEARANCE IN PREDICTING GLOMERULAR FILTRATION RATE. ESTIMATED GFR IS NOT APPLICABLE FOR DIALYSIS PATIENTS. BASIC METABOLIC [id number] 18:41:00 Test Item Value Reference Range Comments SODIUM (BEAKER) (test 140 meq/L 136-145 psal=717) POTASSIUM (BEAKER) (test 4.1 meq/L 3.5-5.1 xhwv=446) CHLORIDE (BEAKER) (test 104 meq/L 98-107 ibft=958) CO2 (BEAKER) (test 25 meq/L 22-29 kwxq=096) BLOOD UREA NITROGEN 31 mg/dL 7-21 (BEAKER) (test cqtg=035) CREATININE (BEAKER) (test 1.55 mg/dL 0.57-1.25 ndqq=000) GLUCOSE RANDOM (BEAKER) 127 mg/dL 70-105 (test wzsf=350) CALCIUM (BEAKER) (test 9.0 mg/dL 8.4-10.2 tmov=787) EGFR (BEAKER) (test 40 mL/min/1.73 sq m ESTIMATED GFR IS NOT vmhx=3943) ACCURATE CREATININE CLEARANCE IN PREDICTING GLOMERULAR FILTRATION RATE. ESTIMATED GFR IS NOT APPLICABLE FOR DIALYSIS PATIENTS. BLOOD GAS, [id number] 18:12:00 Test Item Value Reference Range Comments PH ARTERIAL (BEAKER) (test xgdm=106) 7.50 7.35-7.45 PCO2 ARTERIAL (BEAKER) (test hupc=520) 39 mmHg 35-45 PO2 ARTERIAL (BEAKER) (test bkcs=409) 59 mmHg 80-90 O2 SATURATION ARTERIAL (BEAKER) (test xzxe=708) 92.7 % 96.0-97.0 HCO3 ARTERIAL (BEAKER) (test vqli=419) 30 mmol/L 21-29 BASE EXCESS ARTERIAL (BEAKER) (test cfdt=574) 6.0 mmol/L -2.0-3.0 PATIENT TEMPERATURE (BEAKER) (test bpmm=9230) 36.9 C FIO2 (BEAKER) (test olrj=0698) 32.0 % RAD, CHEST, 1 VIEW, NON [id number] 07:32:00Reason for exam:->ETTShould this be performed at the bedside?->YesFINAL REPORT Chest one view. Clinical history: ETT Comparison: 06/30/2018 Discussion: A frontal chest is provided. Cardiomediastinal contours are unchanged. ET has been removed. Left IJ line is unchanged. There is unchanged mild vascular congestion and interstitial edema. Probable small left effusion. No pneumothorax. Signed: Morgan Chengeport Verified Date/Time: 07/01/2018 07:32: 43 Reading Location: [facility] C013V Neuro Reading Room BASIC METABOLIC [id number] 06:20:00 Test Item Value Reference Range Comments SODIUM (BEAKER) (test 142 meq/L 136-145 kvne=417) POTASSIUM (BEAKER) (test 4.3 meq/L 3.5-5.1 jnne=122) CHLORIDE (BEAKER) (test 106 meq/L 98-107 xkxe=274) CO2 (BEAKER) (test 27 meq/L 22-29 wsmw=853) BLOOD UREA NITROGEN 34 mg/dL 7-21 (BEAKER) (test reyb=122) CREATININE (BEAKER) (test 1.67 mg/dL 0.57-1.25 nrsi=088) GLUCOSE RANDOM (BEAKER) 130 mg/dL 70-105 (test csup=793) CALCIUM (BEAKER) (test 9.1 mg/dL 8.4-10.2 quvu=360) EGFR (BEAKER) (test 37 mL/min/1.73 sq m ESTIMATED GFR IS NOT zwpf=5948) ACCURATE CREATININE CLEARANCE IN PREDICTING GLOMERULAR FILTRATION RATE. ESTIMATED GFR IS NOT APPLICABLE FOR DIALYSIS PATIENTS. CBC W/PLT COUNT & AUTO [id number] 05:56:00 Test Item Value Reference Range Comments WHITE BLOOD CELL COUNT (BEAKER) (test ipwt=924) 6.9 K/ L 3.5-10.5 RED BLOOD CELL COUNT (BEAKER) (test ohis=855) 2.88 M/ L 3.93-5.22 HEMOGLOBIN (BEAKER) (test cysa=250) 8.9 GM/DL 11.2-15.7 HEMATOCRIT (BEAKER) (test ahiw=966) 29.5 % 34.1-44.9 MEAN CORPUSCULAR VOLUME (BEAKER) (test yqua=400) 102.4 fL 79.4-94.8 MEAN CORPUSCULAR HEMOGLOBIN (BEAKER) (test 30.9 pg 25.6-32.2 hgby=465) MEAN CORPUSCULAR HEMOGLOBIN CONC (BEAKER) (test 30.2 GM/DL 32.2-35.5 nqqw=853) RED CELL DISTRIBUTION WIDTH (BEAKER) (test 17.8 % 11.7-14.4 ymjy=802) PLATELET COUNT (BEAKER) (test dchx=091) 211 K/CU MM 150-450 MEAN PLATELET VOLUME (BEAKER) (test mudt=139) 9.6 fL 9.4-12.3 NUCLEATED RED BLOOD CELLS (BEAKER) (test 0 /100 WBC 0-0 fafp=662) NEUTROPHILS RELATIVE PERCENT (BEAKER) (test 86 % dwxh=295) LYMPHOCYTES RELATIVE PERCENT (BEAKER) (test 5 % somf=709) MONOCYTES RELATIVE PERCENT (BEAKER) (test 8 % vvrv=719) EOSINOPHILS RELATIVE PERCENT (BEAKER) (test 0 % upzi=874) BASOPHILS RELATIVE PERCENT (BEAKER) (test 0 % jqfp=125) NEUTROPHILS ABSOLUTE COUNT (BEAKER) (test 5.94 K/ L 1.56-6.13 gqoq=971) LYMPHOCYTES ABSOLUTE COUNT (BEAKER) (test 0.37 K/ L 1.18-3.74 kkri=312) MONOCYTES ABSOLUTE COUNT (BEAKER) (test 0.53 K/ L 0.24-0.36 qdmc=088) EOSINOPHILS ABSOLUTE COUNT (BEAKER) (test 0.02 K/ L 0.04-0.36 rvje=609) BASOPHILS ABSOLUTE COUNT (BEAKER) (test 0.01 K/ L 0.01-0.08 weqm=313) IMMATURE GRANULOCYTES-RELATIVE PERCENT (BEAKER) 0 % 0-1 (test cyuu=6450) [id number] 15:31:00 Test Item Value Reference Range Comments MAGNESIUM (BEAKER) (test lpzp=966) 2.2 mg/dL 1.6-2.6 BASIC METABOLIC [id number] 15:31:00 Test Item Value Reference Range Comments SODIUM (BEAKER) (test 137 meq/L 136-145 kipo=743) POTASSIUM (BEAKER) (test 4.5 meq/L 3.5-5.1 vpbv=466) CHLORIDE (BEAKER) (test 102 meq/L 98-107 weqa=643) CO2 (BEAKER) (test 24 meq/L 22-29 bwpp=463) BLOOD UREA NITROGEN 36 mg/dL 7-21 (BEAKER) (test keub=965) CREATININE (BEAKER) (test 1.78 mg/dL 0.57-1.25 vrqy=367) GLUCOSE RANDOM (BEAKER) 179 mg/dL 70-105 (test jrzx=061) CALCIUM (BEAKER) (test 8.8 mg/dL 8.4-10.2 zeyi=325) EGFR (BEAKER) (test 34 mL/min/1.73 sq m ESTIMATED GFR IS NOT brhc=9072) ACCURATE CREATININE CLEARANCE IN PREDICTING GLOMERULAR FILTRATION RATE. ESTIMATED GFR IS NOT APPLICABLE FOR DIALYSIS PATIENTS. CBC W/PLT COUNT & AUTO [id number] 15:17:00 Test Item Value Reference Range Comments WHITE BLOOD CELL COUNT (BEAKER) (test nfrw=382) 7.3 K/ L 3.5-10.5 RED BLOOD CELL COUNT (BEAKER) (test qxbc=472) 3.02 M/ L 3.93-5.22 HEMOGLOBIN (BEAKER) (test ture=874) 9.5 GM/DL 11.2-15.7 HEMATOCRIT (BEAKER) (test tsil=029) 31.3 % 34.1-44.9 MEAN CORPUSCULAR VOLUME (BEAKER) (test abiu=216) 103.6 fL 79.4-94.8 MEAN CORPUSCULAR HEMOGLOBIN (BEAKER) (test 31.5 pg 25.6-32.2 sdci=605) MEAN CORPUSCULAR HEMOGLOBIN CONC (BEAKER) (test 30.4 GM/DL 32.2-35.5 sdan=062) RED CELL DISTRIBUTION WIDTH (BEAKER) (test 17.8 % 11.7-14.4 ncpm=449) PLATELET COUNT (BEAKER) (test cpea=501) 229 K/CU MM 150-450 MEAN PLATELET VOLUME (BEAKER) (test zjaf=262) 9.7 fL 9.4-12.3 NUCLEATED RED BLOOD CELLS (BEAKER) (test 0 /100 WBC 0-0 mhpj=093) NEUTROPHILS RELATIVE PERCENT (BEAKER) (test 91 % qpjq=481) LYMPHOCYTES RELATIVE PERCENT (BEAKER) (test 3 % rkfk=122) MONOCYTES RELATIVE PERCENT (BEAKER) (test 5 % xrup=019) EOSINOPHILS RELATIVE PERCENT (BEAKER) (test 0 % lavb=747) BASOPHILS RELATIVE PERCENT (BEAKER) (test 0 % srwl=895) NEUTROPHILS ABSOLUTE COUNT (BEAKER) (test 6.62 K/ L 1.56-6.13 jqay=816) LYMPHOCYTES ABSOLUTE COUNT (BEAKER) (test 0.23 K/ L 1.18-3.74 dnnk=131) MONOCYTES ABSOLUTE COUNT (BEAKER) (test 0.39 K/ L 0.24-0.36 pdbf=871) EOSINOPHILS ABSOLUTE COUNT (BEAKER) (test 0.00 K/ L 0.04-0.36 jqwd=630) BASOPHILS ABSOLUTE COUNT (BEAKER) (test 0.02 K/ L 0.01-0.08 kvuh=034) IMMATURE GRANULOCYTES-RELATIVE PERCENT (BEAKER) 0 % 0-1 (test wrzb=1741) RAD, CHEST, 1 VIEW, NON [id number] 08:50:00Reason for exam:->ETTShould this be performed at [...] MDReport Verified Date/Time: 06/30/2018 08:50:44 Reading Location: [address] Ultrasound Reading Room [id number] 06:52:00 Test Item Value Reference Range Comments ACTIVATED CLOTTING TIME 147 sec TESTED AT [place] [id number] [facility] (BEAKER) (test axzj=322) [place] [address] [id number] 06:52:00 Test Item Value Reference Range Comments ACTIVATED CLOTTING TIME 252 sec TESTED AT [place] [id number] [place] (BEAKER) (test uace=601) [place] [address] [id number] 06:52:00 Test Item Value Reference Range Comments ACTIVATED CLOTTING TIME 257 sec TESTED AT [address] (BEAKER) (test dpqt=533) [place] [address] [id number] 06:52:00 Test Item Value Reference Range Comments ACTIVATED CLOTTING TIME 246 sec TESTED AT [address] (BEAKER) (test mtpz=428) [place] [address] LACTIC ACID, [id number] 05:16:00 Test Item Value Reference Range Comments LACTATE BLOOD ARTERIAL (2) (BEAKER) (test 1.0 mmol/L 0.5-2.2 ljxr=3206) BLOOD GAS, [id number] 05:06:00 Test Item Value Reference Range Comments PH ARTERIAL (BEAKER) (test nlnp=785) 7.38 7.35-7.45 PCO2 ARTERIAL (BEAKER) (test fjay=548) 40 mmHg 35-45 PO2 ARTERIAL (BEAKER) (test sbau=628) 107 mmHg 80-90 O2 SATURATION ARTERIAL (BEAKER) (test wkkh=204) 97.9 % 96.0-97.0 HCO3 ARTERIAL (BEAKER) (test dyjv=644) 23 mmol/L 21-29 BASE EXCESS ARTERIAL (BEAKER) (test rdxx=934) -2.1 mmol/L -2.0-3.0 PATIENT TEMPERATURE (BEAKER) (test xyxx=2903) 36.7 C FIO2 (BEAKER) (test qwyn=3856) 60.0 % CBC W/PLT COUNT & AUTO [id number] 04:59:00 Test Item Value Reference Range Comments WHITE BLOOD CELL COUNT (BEAKER) (test jlhx=939) 8.9 K/ L 3.5-10.5 RED BLOOD CELL COUNT (BEAKER) (test fyhc=990) 3.28 M/ L 3.93-5.22 HEMOGLOBIN (BEAKER) (test yujb=941) 10.0 GM/DL 11.2-15.7 HEMATOCRIT (BEAKER) (test ygbu=165) 34.4 % 34.1-44.9 MEAN CORPUSCULAR VOLUME (BEAKER) (test zyoy=498) 104.9 fL 79.4-94.8 MEAN CORPUSCULAR HEMOGLOBIN (BEAKER) (test 30.5 pg 25.6-32.2 pgmd=132) MEAN CORPUSCULAR HEMOGLOBIN CONC (BEAKER) (test 29.1 GM/DL 32.2-35.5 vsuh=645) RED CELL DISTRIBUTION WIDTH (BEAKER) (test 17.6 % 11.7-14.4 iljs=900) PLATELET COUNT (BEAKER) (test lbjo=467) 276 K/CU MM 150-450 MEAN PLATELET VOLUME (BEAKER) (test yicw=095) 9.7 fL 9.4-12.3 NUCLEATED RED BLOOD CELLS (BEAKER) (test 0 /100 WBC 0-0 plkj=816) NEUTROPHILS RELATIVE PERCENT (BEAKER) (test 90 % inwj=005) LYMPHOCYTES RELATIVE PERCENT (BEAKER) (test 3 % zfzx=893) MONOCYTES RELATIVE PERCENT (BEAKER) (test 6 % qdet=256) EOSINOPHILS RELATIVE PERCENT (BEAKER) (test 0 % inyl=982) BASOPHILS RELATIVE PERCENT (BEAKER) (test 0 % ritv=739) NEUTROPHILS ABSOLUTE COUNT (BEAKER) (test 8.00 K/ L 1.56-6.13 mrlq=979) LYMPHOCYTES ABSOLUTE COUNT (BEAKER) (test 0.30 K/ L 1.18-3.74 qfld=326) MONOCYTES ABSOLUTE COUNT (BEAKER) (test 0.51 K/ L 0.24-0.36 qlxd=753) EOSINOPHILS ABSOLUTE COUNT (BEAKER) (test 0.01 K/ L 0.04-0.36 pjnu=758) BASOPHILS ABSOLUTE COUNT (BEAKER) (test 0.02 K/ L 0.01-0.08 gtbk=795) IMMATURE GRANULOCYTES-RELATIVE PERCENT (BEAKER) 1 % 0-1 (test ngyf=3091) B-TYPE NATRIURETIC FACTOR (BNP)2018-06-30 04:19:00 Test Item Value Reference Range Comments B-TYPE NATRIURETIC PEPTIDE (BEAKER) (test 21855 pg/mL 0-100 esoj=593) HEPATIC FUNCTION [id number] 04:01:00 Test Item Value Reference Range Comments TOTAL PROTEIN (BEAKER) (test ccjo=549) 6.5 gm/dL 6.0-8.3 ALBUMIN (BEAKER) (test qmlp=6517) 3.4 g/dL 3.5-5.0 BILIRUBIN TOTAL (BEAKER) (test xzbd=537) 1.2 mg/dL 0.2-1.2 BILIRUBIN DIRECT (BEAKER) (test kpyz=076) 0.8 mg/dL 0.1-0.5 ALKALINE PHOSPHATASE (BEAKER) (test vjrr=926) 103 U/L 40-150 AST (SGOT) (BEAKER) (test kwnq=404) 17 U/L 5-34 ALT (SGPT) (BEAKER) (test elwa=986) 15 U/L 6-55 RAD, CHEST, 1 VIEW, NON [id number] 02:31:00Reason for exam:->ETTShould this be performed at [...] MDReport Verified Date/Time: 06/30/2018 02:31:37 Reading Location: [address] Transitional Reading Room [id number] 02:27:00 Test Item Value Reference Range Comments PARTIAL THROMBOPLASTIN TIME (BEAKER) (test 39.5 seconds 22.5-36.0 xckq=667) PROTHROMBIN TIME/[id number] 02:26:00 Test Item Value Reference Range Comments PROTIME (BEAKER) (test tpsc=955) 16.5 seconds 11.7-14.7 INR (BEAKER) (test qcvk=126) 1.3 <=5.9 RECOMMENDED COUMADIN/WARFARIN INR THERAPY RANGESSTANDARD DOSE: 2.0 - 3.0 Includes: PROPHYLAXIS forvenous thrombosis, systemic embolization; TREATMENT for venous thrombosis and/or pulmonary embolus.HIGH RISK: Target INR is 2.5-3.5 for patients with mechanical heart valves.BASIC METABOLIC [id number] 02:09: 00 Test Item Value Reference Range Comments SODIUM (BEAKER) (test 137 meq/L 136-145 dqph=121) POTASSIUM (BEAKER) (test 4.9 meq/L 3.5-5.1 qpff=957) CHLORIDE (BEAKER) (test 103 meq/L 98-107 wsrl=891) CO2 (BEAKER) (test 23 meq/L 22-29 diih=359) BLOOD UREA NITROGEN 32 mg/dL 7-21 (BEAKER) (test xpiq=025) CREATININE (BEAKER) (test 1.74 mg/dL 0.57-1.25 kavj=714) GLUCOSE RANDOM (BEAKER) 143 mg/dL 70-105 (test etjc=357) CALCIUM (BEAKER) (test 8.8 mg/dL 8.4-10.2 otzf=541) EGFR (BEAKER) (test 35 mL/min/1.73 sq m ESTIMATED GFR IS NOT wumj=0873) ACCURATE CREATININE CLEARANCE IN PREDICTING GLOMERULAR FILTRATION RATE. ESTIMATED GFR IS NOT APPLICABLE FOR DIALYSIS PATIENTS. LACTIC ACID, [id number] 02:06:00 Test Item Value Reference Range Comments LACTATE BLOOD ARTERIAL (2) (BEAKER) (test 0.8 mmol/L 0.5-2.2 diyb=8632) OXYGEN SATURATION, [id number] 01:59:00 Test Item Value Reference Range Comments O2 SATURATION (MEASURED) (BEAKER) (test rzay=0060) 79.3 % BLOOD GAS, [id number] 01:58:00 Test Item Value Reference Range Comments PH ARTERIAL (BEAKER) (test xlco=399) 7.34 7.35-7.45 PCO2 ARTERIAL (BEAKER) (test vjcj=982) 50 mmHg 35-45 PO2 ARTERIAL (BEAKER) (test qzex=029) 78 mmHg 80-90 O2 SATURATION ARTERIAL (BEAKER) (test dxvh=593) 95.4 % 96.0-97.0 HCO3 ARTERIAL (BEAKER) (test waav=585) 27 mmol/L 21-29 BASE EXCESS ARTERIAL (BEAKER) (test iwuu=371) 0.3 mmol/L -2.0-3.0 PATIENT TEMPERATURE (BEAKER) (test ypgo=8566) 35.8 C FIO2 (BEAKER) (test chzm=3959) 60.0 % CBC W/PLT COUNT & AUTO [id number] 01:57:00 Test Item Value Reference Range Comments WHITE BLOOD CELL COUNT (BEAKER) (test exca=225) 9.7 K/ L 3.5-10.5 RED BLOOD CELL COUNT (BEAKER) (test fhel=281) 3.18 M/ L 3.93-5.22 HEMOGLOBIN (BEAKER) (test gbfo=851) 9.8 GM/DL 11.2-15.7 HEMATOCRIT (BEAKER) (test gahd=356) 33.3 % 34.1-44.9 MEAN CORPUSCULAR VOLUME (BEAKER) (test uysn=479) 104.7 fL 79.4-94.8 MEAN CORPUSCULAR HEMOGLOBIN (BEAKER) (test 30.8 pg 25.6-32.2 cash=775) MEAN CORPUSCULAR HEMOGLOBIN CONC (BEAKER) (test 29.4 GM/DL 32.2-35.5 lpuj=967) RED CELL DISTRIBUTION WIDTH (BEAKER) (test 17.5 % 11.7-14.4 nerp=285) PLATELET COUNT (BEAKER) (test crmo=220) 289 K/CU MM 150-450 MEAN PLATELET VOLUME (BEAKER) (test nvys=275) 9.7 fL 9.4-12.3 NUCLEATED RED BLOOD CELLS (BEAKER) (test 0 /100 WBC 0-0 ntoa=298) NEUTROPHILS RELATIVE PERCENT (BEAKER) (test 88 % lwqp=280) LYMPHOCYTES RELATIVE PERCENT (BEAKER) (test 5 % lxwe=432) MONOCYTES RELATIVE PERCENT (BEAKER) (test 4 % npys=714) EOSINOPHILS RELATIVE PERCENT (BEAKER) (test 1 % elko=643) BASOPHILS RELATIVE PERCENT (BEAKER) (test 0 % naec=326) NEUTROPHILS ABSOLUTE COUNT (BEAKER) (test 8.53 K/ L 1.56-6.13 amqz=767) LYMPHOCYTES ABSOLUTE COUNT (BEAKER) (test 0.48 K/ L 1.18-3.74 pwpi=902) MONOCYTES ABSOLUTE COUNT (BEAKER) (test 0.41 K/ L 0.24-0.36 yabc=835) EOSINOPHILS ABSOLUTE COUNT (BEAKER) (test 0.13 K/ L 0.04-0.36 zwxb=661) BASOPHILS ABSOLUTE COUNT (BEAKER) (test 0.04 K/ L 0.01-0.08 fsiu=638) IMMATURE GRANULOCYTES-RELATIVE PERCENT (BEAKER) 1 % 0-1 (test ucud=6843) FILTER IONIZED [id number] 23:29:00 Test Item Value Reference Range Comments FILTER IONIZED CALCIUM (BEAKER) (test rhum=9962) 1.14 mmol/L Reference Range: No NormalsBLOOD GAS, [id number] 23:29:00 Test Item Value Reference Range Comments PH ARTERIAL (BEAKER) (test yndi=823) 7.38 7.35-7.45 PCO2 ARTERIAL (BEAKER) (test krfb=226) 49 mmHg 35-45 PO2 ARTERIAL (BEAKER) (test yvxe=534) 202 mmHg 80-90 O2 SATURATION ARTERIAL (BEAKER) (test nkzj=098) 99.4 % 96.0-97.0 HCO3 ARTERIAL (BEAKER) (test avui=516) 29 mmol/L 21-29 BASE EXCESS ARTERIAL (BEAKER) (test xlmz=623) 2.6 mmol/L -2.0-3.0 PATIENT TEMPERATURE (BEAKER) (test sfnr=0966) 35.6 C FIO2 (BEAKER) (test hfxk=7903) 100.0 % HGB/HCT (H&H) - STAT [id number] 23:28:00 Test Item Value Reference Range Comments HEMOGLOBIN (BEAKER) (test lblb=332) 10.7 g/dL 12.0-15.0 HEMATOCRIT (BEAKER) (test hojk=636) 31.0 % 36.0-45.0 GLUCOSE-STAT [id number] 23:25:00 Test Item Value Reference Range Comments GLUCOSE RANDOM (BEAKER) (test ehzz=321) 97 mg/dL 70-110 SODIUM NA-STAT [id number] 23:25:00 Test Item Value Reference Range Comments SODIUM (BEAKER) (test podu=335) 137 meq/L 135-148 POTASSIUM-STAT [id number] 23:25:00 Test Item Value Reference Range Comments POTASSIUM (BEAKER) (test dlpx=210) 4.4 meq/L 3.6-5.5 B-TYPE NATRIURETIC FACTOR (BNP)[id number] 21:59:00 Test Item Value Reference Range Comments B-TYPE NATRIURETIC PEPTIDE (BEAKER) (test 62604 pg/mL 0-100 eqyd=935) BASIC METABOLIC [id number] 21:31:00 Test Item Value Reference Range Comments SODIUM (BEAKER) (test 140 meq/L 136-145 ypse=852) POTASSIUM (BEAKER) (test 4.6 meq/L 3.5-5.1 piml=892) CHLORIDE (BEAKER) (test 104 meq/L 98-107 hbmx=422) CO2 (BEAKER) (test 25 meq/L 22-29 kguv=406) BLOOD UREA NITROGEN 33 mg/dL 7-21 (BEAKER) (test nzkl=244) CREATININE (BEAKER) (test 1.78 mg/dL 0.57-1.25 kppl=000) GLUCOSE RANDOM (BEAKER) 79 mg/dL 70-105 (test xktg=270) CALCIUM (BEAKER) (test 9.4 mg/dL 8.4-10.2 rmng=082) EGFR (BEAKER) (test 34 mL/min/1.73 sq m ESTIMATED GFR IS NOT qtmy=3242) ACCURATE CREATININE CLEARANCE IN PREDICTING GLOMERULAR FILTRATION RATE. ESTIMATED GFR IS NOT APPLICABLE FOR DIALYSIS PATIENTS. [id number] 21:18:00 Test Item Value Reference Range Comments PARTIAL THROMBOPLASTIN TIME (BEAKER) (test 36.1 seconds 22.5-36.0 swen=581) PROTHROMBIN TIME/[id number] 21:17:00 Test Item Value Reference Range Comments PROTIME (BEAKER) (test qkvq=254) 15.1 seconds 11.7-14.7 INR (BEAKER) (test shhn=043) 1.2 <=5.9 RECOMMENDED COUMADIN/WARFARIN INR THERAPY RANGESSTANDARD DOSE: 2.0 - 3.0 Includes: PROPHYLAXIS forvenous thrombosis, systemic embolization; TREATMENT for venous thrombosis and/or pulmonary embolus.HIGH RISK: Target INR is 2.5-3.5 for patients with mechanical heart valves.CBC W/PLT COUNT & AUTO [id number] 21:05:00 Test Item Value Reference Range Comments WHITE BLOOD CELL COUNT (BEAKER) (test tbtw=169) 5.3 K/ L 3.5-10.5 RED BLOOD CELL COUNT (BEAKER) (test mskf=582) 3.43 M/ L 3.93-5.22 HEMOGLOBIN (BEAKER) (test ynvu=966) 10.6 GM/DL 11.2-15.7 HEMATOCRIT (BEAKER) (test qtza=766) 36.3 % 34.1-44.9 MEAN CORPUSCULAR VOLUME (BEAKER) (test qova=297) 105.8 fL 79.4-94.8 MEAN CORPUSCULAR HEMOGLOBIN (BEAKER) (test 30.9 pg 25.6-32.2 idfx=653) MEAN CORPUSCULAR HEMOGLOBIN CONC (BEAKER) (test 29.2 GM/DL 32.2-35.5 ogwz=319) RED CELL DISTRIBUTION WIDTH (BEAKER) (test 17.9 % 11.7-14.4 pcvj=115) PLATELET COUNT (BEAKER) (test vmhu=916) 294 K/CU MM 150-450 MEAN PLATELET VOLUME (BEAKER) (test fskh=101) 9.4 fL 9.4-12.3 NUCLEATED RED BLOOD CELLS (BEAKER) (test 0 /100 WBC 0-0 qmhl=830) NEUTROPHILS RELATIVE PERCENT (BEAKER) (test 75 % bord=528) LYMPHOCYTES RELATIVE PERCENT (BEAKER) (test 12 % rpkt=691) MONOCYTES RELATIVE PERCENT (BEAKER) (test 8 % caxf=284) EOSINOPHILS RELATIVE PERCENT (BEAKER) (test 4 % cpyk=665) BASOPHILS RELATIVE PERCENT (BEAKER) (test 1 % cydz=033) NEUTROPHILS ABSOLUTE COUNT (BEAKER) (test 3.97 K/ L 1.56-6.13 wcad=228) LYMPHOCYTES ABSOLUTE COUNT (BEAKER) (test 0.64 K/ L 1.18-3.74 uiji=037) MONOCYTES ABSOLUTE COUNT (BEAKER) (test 0.42 K/ L 0.24-0.36 zghw=806) EOSINOPHILS ABSOLUTE COUNT (BEAKER) (test 0.19 K/ L 0.04-0.36 pqvn=363) BASOPHILS ABSOLUTE COUNT (BEAKER) (test 0.05 K/ L 0.01-0.08 spry=072) IMMATURE GRANULOCYTES-RELATIVE PERCENT (BEAKER) 0 % 0-1 (test gjka=4731) B-TYPE NATRIURETIC FACTOR (BNP)2017-08-18 15:08:00 Test Item Value Reference Range Comments B-TYPE NATRIURETIC PEPTIDE (BEAKER) (test 867 pg/mL 0-100 qade=967) BASIC METABOLIC [id number] 15:05:00 Test Item Value Reference Range Comments SODIUM (BEAKER) (test 140 meq/L 136-145 cynr=014) POTASSIUM (BEAKER) (test 4.6 meq/L 3.5-5.1 nxyq=305) CHLORIDE (BEAKER) (test 98 meq/L 98-107 ltru=714) CO2 (BEAKER) (test 32 meq/L 22-29 gcrk=976) BLOOD UREA NITROGEN 30 mg/dL 7-21 (BEAKER) (test dxvw=178) CREATININE (BEAKER) (test 2.58 mg/dL 0.57-1.25 iwaf=245) GLUCOSE RANDOM (BEAKER) 105 mg/dL 70-105 (test mhsc=713) CALCIUM (BEAKER) (test 10.3 mg/dL 8.4-10.2 blgx=179) EGFR (BEAKER) (test 22 mL/min/1.73 sq m ESTIMATED GFR IS NOT nwfr=5168) ACCURATE CREATININE CLEARANCE IN PREDICTING GLOMERULAR FILTRATION RATE. ESTIMATED GFR IS NOT APPLICABLE FOR DIALYSIS PATIENTS. [id number] 15:02:00 Test Item Value Reference Range Comments MAGNESIUM (BEAKER) (test dble=191) 2.0 mg/dL 1.6-2.6 POCT-GLUCOSE [id number] 12:40:00 Test Item Value Reference Range Comments POC-GLUCOSE METER (BEAKER) 225 mg/dL 70-110 TESTED AT [address] (test qwig=8290) [place] [address] POCT-GLUCOSE [id number] 08:32:00 Test Item Value Reference Range Comments POC-GLUCOSE METER (BEAKER) 148 mg/dL 70-110 TESTED AT [address] (test zsyt=9942) [place] [address] BASIC METABOLIC [id number] 05:56:00 Test Item Value Reference Range Comments SODIUM (BEAKER) (test 138 meq/L 136-145 lwes=276) POTASSIUM (BEAKER) (test 4.0 meq/L 3.5-5.1 laoe=748) CHLORIDE (BEAKER) (test 98 meq/L 98-107 jsha=776) CO2 (BEAKER) (test 29 meq/L 22-29 swjt=652) BLOOD UREA NITROGEN 14 mg/dL 7-21 (BEAKER) (test pskf=866) CREATININE (BEAKER) (test 1.85 mg/dL 0.57-1.25 ofub=507) GLUCOSE RANDOM (BEAKER) 116 mg/dL 70-105 (test itpd=785) CALCIUM (BEAKER) (test 9.9 mg/dL 8.4-10.2 jufj=454) EGFR (BEAKER) (test 33 mL/min/1.73 sq m ESTIMATED GFR IS NOT avwp=6271) ACCURATE CREATININE CLEARANCE IN PREDICTING GLOMERULAR FILTRATION RATE. ESTIMATED GFR IS NOT APPLICABLE FOR DIALYSIS PATIENTS. POCT-GLUCOSE [id number] 21:38:00 Test Item Value Reference Range Comments POC-GLUCOSE METER (BEAKER) 162 mg/dL 70-110 TESTED AT [address] (test zomo=7738) [place] [address] POCT-GLUCOSE [id number] 17:02:00 Test Item Value Reference Range Comments POC-GLUCOSE METER (BEAKER) 160 mg/dL 70-110 TESTED AT [address] (test sedc=8832) [place] [address] POCT-GLUCOSE [id number] 12:33:00 Test Item Value Reference Range Comments POC-GLUCOSE METER (BEAKER) 163 mg/dL 70-110 TESTED AT [address] (test nsfb=9565) [place] [address] POCT-GLUCOSE [id number] 10:33:00 Test Item Value Reference Range Comments POC-GLUCOSE METER (BEAKER) 175 mg/dL 70-110 TESTED AT [address] (test quzc=0859) [place] [address] [id number] 04:51:00 Test Item Value Reference Range Comments MAGNESIUM (BEAKER) (test 2.0 mg/dL 1.6-2.6 Specimen slightly hemolyzed bllt=182) BASIC METABOLIC [id number] 04:51:00 Test Item Value Reference Range Comments SODIUM (BEAKER) (test 139 meq/L 136-145 ushf=503) POTASSIUM (BEAKER) (test 3.8 meq/L 3.5-5.1 Specimen slightly iyjj=223) hemolyzed CHLORIDE (BEAKER) (test 99 meq/L 98-107 aobt=283) CO2 (BEAKER) (test 27 meq/L 22-29 fqyv=834) BLOOD UREA NITROGEN 14 mg/dL 7-21 (BEAKER) (test ekkk=628) CREATININE (BEAKER) (test 1.61 mg/dL 0.57-1.25 Specimen slightly ykgv=240) hemolyzed GLUCOSE RANDOM (BEAKER) 139 mg/dL 70-105 (test rxmv=117) CALCIUM (BEAKER) (test 10.0 mg/dL 8.4-10.2 bfnc=855) EGFR (BEAKER) (test 38 mL/min/1.73 sq m ESTIMATED GFR IS NOT edjk=1702) ACCURATE CREATININE CLEARANCE IN PREDICTING GLOMERULAR FILTRATION RATE. ESTIMATED GFR IS NOT APPLICABLE FOR DIALYSIS PATIENTS. POCT-GLUCOSE [id number] 21:32:00 Test Item Value Reference Range Comments POC-GLUCOSE METER (BEAKER) 176 mg/dL 70-110 TESTED AT [address] (test txkb=6112) [place] [address] POCT-GLUCOSE [id number] 17:22:00 Test Item Value Reference Range Comments POC-GLUCOSE METER (BEAKER) 232 mg/dL 70-110 TESTED AT [address] (test hjxn=7742) [place] [address] POCT-GLUCOSE [id number] 12:47:00 Test Item Value Reference Range Comments POC-GLUCOSE METER (BEAKER) 162 mg/dL 70-110 TESTED AT [address] (test shaq=8707) [place] [address] POCT-GLUCOSE [id number] 08:15:00 Test Item Value Reference Range Comments POC-GLUCOSE METER (BEAKER) 149 mg/dL 70-110 TESTED AT [address] (test trve=4613) [place] [address] [id number] 07:05:00 Test Item Value Reference Range Comments MAGNESIUM (BEAKER) (test ukiz=252) 1.9 mg/dL 1.6-2.6 BASIC METABOLIC [id number] 07:05:00 Test Item Value Reference Range Comments SODIUM (BEAKER) (test 136 meq/L 136-145 okwr=150) POTASSIUM (BEAKER) (test 3.8 meq/L 3.5-5.1 crjs=630) CHLORIDE (BEAKER) (test 98 meq/L 98-107 ewct=813) CO2 (BEAKER) (test 30 meq/L 22-29 cpwt=174) BLOOD UREA NITROGEN 14 mg/dL 7-21 (BEAKER) (test junz=732) CREATININE (BEAKER) (test 1.56 mg/dL 0.57-1.25 zbei=188) GLUCOSE RANDOM (BEAKER) 129 mg/dL 70-105 (test okzk=869) CALCIUM (BEAKER) (test 9.8 mg/dL 8.4-10.2 ltgq=066) EGFR (BEAKER) (test 40 mL/min/1.73 sq m ESTIMATED GFR IS NOT hsxm=5166) ACCURATE CREATININE CLEARANCE IN PREDICTING GLOMERULAR FILTRATION RATE. ESTIMATED GFR IS NOT APPLICABLE FOR DIALYSIS PATIENTS. POCT-GLUCOSE [id number] 20:56:00 Test Item Value Reference Range Comments POC-GLUCOSE METER (BEAKER) 112 mg/dL 70-110 TESTED AT [address] (test fpey=8188) [place] [address] POCT-GLUCOSE [id number] 17:48:00 Test Item Value Reference Range Comments POC-GLUCOSE METER (BEAKER) 213 mg/dL 70-110 TESTED AT [address] (test eyvp=0995) [place] [address] POCT-GLUCOSE [id number] 11:40:00 Test Item Value Reference Range Comments POC-GLUCOSE METER (BEAKER) 208 mg/dL 70-110 TESTED AT [address] (test kxad=9098) [place] [address] POCT-GLUCOSE [id number] 07:43:00 Test Item Value Reference Range Comments POC-GLUCOSE METER (BEAKER) 144 mg/dL 70-110 TESTED AT [address] (test rewa=4958) [place] [address] [id number] 04:52:00 Test Item Value Reference Range Comments MAGNESIUM (BEAKER) (test 2.0 mg/dL 1.6-2.6 Specimen slightly hemolyzed nurz=662) BASIC METABOLIC [id number] 04:52:00 Test Item Value Reference Range Comments SODIUM (BEAKER) (test 133 meq/L 136-145 hvnp=109) POTASSIUM (BEAKER) (test 4.7 meq/L 3.5-5.1 Specimen slightly engo=035) hemolyzed CHLORIDE (BEAKER) (test 97 meq/L 98-107 cxst=490) CO2 (BEAKER) (test 25 meq/L 22-29 basg=617) BLOOD UREA NITROGEN 17 mg/dL 7-21 (BEAKER) (test wjef=351) CREATININE (BEAKER) (test 1.63 mg/dL 0.57-1.25 Specimen slightly ehvc=630) hemolyzed GLUCOSE RANDOM (BEAKER) 141 mg/dL 70-105 (test wyel=925) CALCIUM (BEAKER) (test 9.8 mg/dL 8.4-10.2 txcb=549) EGFR (BEAKER) (test 38 mL/min/1.73 sq m ESTIMATED GFR IS NOT aigy=5141) ACCURATE CREATININE CLEARANCE IN PREDICTING GLOMERULAR FILTRATION RATE. ESTIMATED GFR IS NOT APPLICABLE FOR DIALYSIS PATIENTS. POCT-GLUCOSE [id number] 21:29:00 Test Item Value Reference Range Comments POC-GLUCOSE METER (BEAKER) 198 mg/dL 70-110 TESTED AT [address] (test czor=0868) [place] [address] POCT-GLUCOSE [id number] 17:54:00 Test Item Value Reference Range Comments POC-GLUCOSE METER (BEAKER) 176 mg/dL 70-110 TESTED AT [address] (test grah=8253) [place] [id number] POCT-GLUCOSE [id number] 07:05:00 Test Item Value Reference Range Comments POC-GLUCOSE METER (BEAKER) 137 mg/dL 70-110 TESTED AT [address] (test rxfn=5216) [place] [address] [id number] 06:53:00 Test Item Value Reference Range Comments MAGNESIUM (BEAKER) (test wwhr=108) 2.0 mg/dL 1.6-2.6 BASIC METABOLIC [id number] 05:37:00 Test Item Value Reference Range Comments SODIUM (BEAKER) (test 136 meq/L 136-145 mibv=272) POTASSIUM (BEAKER) (test 3.7 meq/L 3.5-5.1 txii=717) CHLORIDE (BEAKER) (test 97 meq/L 98-107 uktk=097) CO2 (BEAKER) (test 30 meq/L 22-29 vxfx=713) BLOOD UREA NITROGEN 17 mg/dL 7-21 (BEAKER) (test uqvv=897) CREATININE (BEAKER) (test 1.60 mg/dL 0.57-1.25 pvev=929) GLUCOSE RANDOM (BEAKER) 116 mg/dL 70-105 (test glcf=592) CALCIUM (BEAKER) (test 9.4 mg/dL 8.4-10.2 sfnj=463) EGFR (BEAKER) (test 39 mL/min/1.73 sq m ESTIMATED GFR IS NOT kegh=8376) ACCURATE CREATININE CLEARANCE IN PREDICTING GLOMERULAR FILTRATION RATE. ESTIMATED GFR IS NOT APPLICABLE FOR DIALYSIS PATIENTS. CBC W/PLT COUNT & AUTO [id number] 05:02:00 Test Item Value Reference Range Comments WHITE BLOOD CELL COUNT (BEAKER) (test kotd=913) 8.7 K/ L 3.5-10.5 RED BLOOD CELL COUNT (BEAKER) (test axdx=242) 2.43 M/ L 3.93-5.22 HEMOGLOBIN (BEAKER) (test wdhv=452) 7.5 GM/DL 11.2-15.7 HEMATOCRIT (BEAKER) (test qbso=167) 24.1 % 34.1-44.9 MEAN CORPUSCULAR VOLUME (BEAKER) (test goae=979) 99.2 fL 79.4-94.8 MEAN CORPUSCULAR HEMOGLOBIN (BEAKER) (test 30.9 pg 25.6-32.2 hivp=144) MEAN CORPUSCULAR HEMOGLOBIN CONC (BEAKER) (test 31.1 GM/DL 32.2-35.5 dssj=670) RED CELL DISTRIBUTION WIDTH (BEAKER) (test 15.8 % 11.7-14.4 fbte=923) PLATELET COUNT (BEAKER) (test bkea=085) 586 K/CU MM 150-450 MEAN PLATELET VOLUME (BEAKER) (test vtnk=828) 9.5 fL 9.4-12.3 NUCLEATED RED BLOOD CELLS (BEAKER) (test 0 /100 WBC 0-0 rtfc=618) NEUTROPHILS RELATIVE PERCENT (BEAKER) (test 74 % ghsz=527) LYMPHOCYTES RELATIVE PERCENT (BEAKER) (test 15 % weyg=040) MONOCYTES RELATIVE PERCENT (BEAKER) (test 8 % tjhl=106) EOSINOPHILS RELATIVE PERCENT (BEAKER) (test 2 % qtxp=002) BASOPHILS RELATIVE PERCENT (BEAKER) (test 1 % cwsi=368) NEUTROPHILS ABSOLUTE COUNT (BEAKER) (test 6.41 K/ L 1.56-6.13 oean=575) LYMPHOCYTES ABSOLUTE COUNT (BEAKER) (test 1.32 K/ L 1.18-3.74 nvwi=535) MONOCYTES ABSOLUTE COUNT (BEAKER) (test 0.65 K/ L 0.24-0.36 ahnc=429) EOSINOPHILS ABSOLUTE COUNT (BEAKER) (test 0.20 K/ L 0.04-0.36 hdyz=640) BASOPHILS ABSOLUTE COUNT (BEAKER) (test 0.08 K/ L 0.01-0.08 hmnt=566) IMMATURE GRANULOCYTES-RELATIVE PERCENT (BEAKER) 0 % 0-1 (test bbrv=0217) POCT-GLUCOSE [id number] 21:28:00 Test Item Value Reference Range Comments POC-GLUCOSE METER (BEAKER) 216 mg/dL 70-110 TESTED AT [address] (test iapw=8548) [place] [address] POCT-GLUCOSE [id number] 18:25:00 Test Item Value Reference Range Comments POC-GLUCOSE METER (BEAKER) 182 mg/dL 70-110 TESTED AT [address] (test zwud=3491) [place] [id number] POCT-GLUCOSE [id number] 09:37:00 Test Item Value Reference Range Comments POC-GLUCOSE METER (BEAKER) 155 mg/dL 70-110 TESTED AT [address] (test vkze=0224) [facility] [address] CALCIUM, [id number] 07:37:00 Test Item Value Reference Range Comments CALCIUM IONIZED (BEAKER) (test rsnq=886) 1.11 mmol/L 1.12-1.27 PH, BLOOD (BEAKER) (test blza=0446) 7.39 [id number] 07:10:00 Test Item Value Reference Range Comments FERRITIN (BEAKER) (test mxbe=541) 445 ng/mL 5-275 IRON, TIBC, % SAT. (WITHOUT FERRITIN)2017-08-04 07:04:00 Test Item Value Reference Range Comments IRON (BEAKER) (test tflv=022) 55 ug/dL 40-160 TOTAL IRON BINDING CAPACITY (BEAKER) (test 198 ug/dL 250-450 tpqs=342) IRON % SATURATION (2) (BEAKER) (test mcdn=2258) 28 % 20-55 [id number] 06:57:00 Test Item Value Reference Range Comments PHOSPHORUS (BEAKER) (test vejk=736) 4.3 mg/dL 2.3-4.7 [id number] 06:57:00 Test Item Value Reference Range Comments MAGNESIUM (BEAKER) (test jtpf=629) 2.1 mg/dL 1.6-2.6 BASIC METABOLIC [id number] 06:57:00 Test Item Value Reference Range Comments SODIUM (BEAKER) (test 138 meq/L 136-145 vymg=721) POTASSIUM (BEAKER) (test 3.8 meq/L 3.5-5.1 hqrf=662) CHLORIDE (BEAKER) (test 99 meq/L 98-107 lzuj=497) CO2 (BEAKER) (test 29 meq/L 22-29 zizc=079) BLOOD UREA NITROGEN 18 mg/dL 7-21 (BEAKER) (test kedh=483) CREATININE (BEAKER) (test 1.75 mg/dL 0.57-1.25 tplt=847) GLUCOSE RANDOM (BEAKER) 138 mg/dL 70-105 (test qaeh=612) CALCIUM (BEAKER) (test 9.7 mg/dL 8.4-10.2 gpqy=611) EGFR (BEAKER) (test 35 mL/min/1.73 sq m ESTIMATED GFR IS NOT ylpe=9441) ACCURATE CREATININE CLEARANCE IN PREDICTING GLOMERULAR FILTRATION RATE. ESTIMATED GFR IS NOT APPLICABLE FOR DIALYSIS PATIENTS. B-TYPE NATRIURETIC FACTOR (BNP)2017-08-04 06:54:00 Test Item Value Reference Range Comments B-TYPE NATRIURETIC PEPTIDE (BEAKER) (test 778 pg/mL 0-100 hwqo=752) RETICULOCYTE [id number] 06:39:00 Test Item Value Reference Range Comments RETICULOCYTE COUNT PCT (BEAKER) (test jgtj=762) 8.3 % 0.5-1.7 CBC W/PLT COUNT & AUTO [id number] 06:39:00 Test Item Value Reference Range Comments WHITE BLOOD CELL COUNT (BEAKER) (test twiz=775) 9.0 K/ L 3.5-10.5 RED BLOOD CELL COUNT (BEAKER) (test kikv=072) 2.55 M/ L 3.93-5.22 HEMOGLOBIN (BEAKER) (test oshe=855) 7.8 GM/DL 11.2-15.7 HEMATOCRIT (BEAKER) (test wryl=630) 25.4 % 34.1-44.9 MEAN CORPUSCULAR VOLUME (BEAKER) (test uwmi=007) 99.6 fL 79.4-94.8 MEAN CORPUSCULAR HEMOGLOBIN (BEAKER) (test 30.6 pg 25.6-32.2 tzvs=132) MEAN CORPUSCULAR HEMOGLOBIN CONC (BEAKER) (test 30.7 GM/DL 32.2-35.5 zefs=986) RED CELL DISTRIBUTION WIDTH (BEAKER) (test 15.9 % 11.7-14.4 vfar=032) PLATELET COUNT (BEAKER) (test sqdz=016) 591 K/CU MM 150-450 MEAN PLATELET VOLUME (BEAKER) (test umph=467) 9.5 fL 9.4-12.3 NUCLEATED RED BLOOD CELLS (BEAKER) (test 0 /100 WBC 0-0 pzxf=437) NEUTROPHILS RELATIVE PERCENT (BEAKER) (test 77 % dhdl=392) LYMPHOCYTES RELATIVE PERCENT (BEAKER) (test 13 % muwn=752) MONOCYTES RELATIVE PERCENT (BEAKER) (test 7 % pffp=294) EOSINOPHILS RELATIVE PERCENT (BEAKER) (test 2 % ffoy=190) BASOPHILS RELATIVE PERCENT (BEAKER) (test 1 % gqom=086) NEUTROPHILS ABSOLUTE COUNT (BEAKER) (test 6.97 K/ L 1.56-6.13 fwmx=618) LYMPHOCYTES ABSOLUTE COUNT (BEAKER) (test 1.13 K/ L 1.18-3.74 gfhp=276) MONOCYTES ABSOLUTE COUNT (BEAKER) (test 0.65 K/ L 0.24-0.36 nbml=375) EOSINOPHILS ABSOLUTE COUNT (BEAKER) (test 0.18 K/ L 0.04-0.36 hfud=506) BASOPHILS ABSOLUTE COUNT (BEAKER) (test 0.07 K/ L 0.01-0.08 kbam=410) IMMATURE GRANULOCYTES-RELATIVE PERCENT (BEAKER) 0 % 0-1 (test qdie=0748) POCT-GLUCOSE [id number] 20:56:00 Test Item Value Reference Range Comments POC-GLUCOSE METER (BEAKER) 167 mg/dL 70-110 TESTED AT [address] (test jdat=6167) [place] [address] POCT-GLUCOSE [id number] 16:36:00 Test Item Value Reference Range Comments POC-GLUCOSE METER (BEAKER) 200 mg/dL 70-110 TESTED AT [address] (test tzpn=4780) [place] [address] POCT-GLUCOSE [id number] 12:59:00 Test Item Value Reference Range Comments POC-GLUCOSE METER (BEAKER) 202 mg/dL 70-110 TESTED AT [address] (test nhqb=6857) [place] [id number] POCT-GLUCOSE [id number] 07:37:00 Test Item Value Reference Range Comments POC-GLUCOSE METER (BEAKER) 154 mg/dL 70-110 TESTED AT [address] (test dqje=7182) [place] [id number] CBC W/PLT COUNT & AUTO [id number] 06:49:00 Test Item Value Reference Range Comments WHITE BLOOD CELL COUNT (BEAKER) (test spuw=746) 9.8 K/ L 3.5-10.5 RED BLOOD CELL COUNT (BEAKER) (test rjcv=402) 2.62 M/ L 3.93-5.22 HEMOGLOBIN (BEAKER) (test tpjy=630) 8.1 GM/DL 11.2-15.7 HEMATOCRIT (BEAKER) (test lwuw=639) 25.9 % 34.1-44.9 MEAN CORPUSCULAR VOLUME (BEAKER) (test pecq=974) 98.9 fL 79.4-94.8 MEAN CORPUSCULAR HEMOGLOBIN (BEAKER) (test 30.9 pg 25.6-32.2 lglb=219) MEAN CORPUSCULAR HEMOGLOBIN CONC (BEAKER) (test 31.3 GM/DL 32.2-35.5 bagn=205) RED CELL DISTRIBUTION WIDTH (BEAKER) (test 15.8 % 11.7-14.4 cakl=681) PLATELET COUNT (BEAKER) (test gnol=643) 667 K/CU MM 150-450 MEAN PLATELET VOLUME (BEAKER) (test ymfd=172) 9.4 fL 9.4-12.3 NUCLEATED RED BLOOD CELLS (BEAKER) (test 0 /100 WBC 0-0 jgdt=941) NEUTROPHILS RELATIVE PERCENT (BEAKER) (test 77 % zzdt=976) LYMPHOCYTES RELATIVE PERCENT (BEAKER) (test 13 % nnsq=382) MONOCYTES RELATIVE PERCENT (BEAKER) (test 7 % vent=756) EOSINOPHILS RELATIVE PERCENT (BEAKER) (test 2 % mvge=698) BASOPHILS RELATIVE PERCENT (BEAKER) (test 1 % tpdl=487) NEUTROPHILS ABSOLUTE COUNT (BEAKER) (test 7.57 K/ L 1.56-6.13 nlmh=531) LYMPHOCYTES ABSOLUTE COUNT (BEAKER) (test 1.23 K/ L 1.18-3.74 fejr=891) MONOCYTES ABSOLUTE COUNT (BEAKER) (test 0.69 K/ L 0.24-0.36 fpsi=806) EOSINOPHILS ABSOLUTE COUNT (BEAKER) (test 0.16 K/ L 0.04-0.36 enve=115) BASOPHILS ABSOLUTE COUNT (BEAKER) (test 0.08 K/ L 0.01-0.08 tlcl=441) IMMATURE GRANULOCYTES-RELATIVE PERCENT (BEAKER) 1 % 0-1 (test wsha=8978) CALCIUM, [id number] 06:38:00 Test Item Value Reference Range Comments CALCIUM IONIZED (BEAKER) (test nxno=891) 1.07 mmol/L 1.12-1.27 PH, BLOOD (BEAKER) (test sjic=9754) 7.42 [id number] 06:08:00 Test Item Value Reference Range Comments PHOSPHORUS (BEAKER) (test ufcl=422) 4.3 mg/dL 2.3-4.7 [id number] 06:08:00 Test Item Value Reference Range Comments MAGNESIUM (BEAKER) (test txlp=742) 2.4 mg/dL 1.6-2.6 BASIC METABOLIC [id number] 06:08:00 Test Item Value Reference Range Comments SODIUM (BEAKER) (test 138 meq/L 136-145 dulx=925) POTASSIUM (BEAKER) (test 4.0 meq/L 3.5-5.1 ydgb=363) CHLORIDE (BEAKER) (test 99 meq/L 98-107 ozks=379) CO2 (BEAKER) (test 29 meq/L 22-29 vlrw=995) BLOOD UREA NITROGEN 15 mg/dL 7-21 (BEAKER) (test glms=695) CREATININE (BEAKER) (test 1.64 mg/dL 0.57-1.25 olbn=055) GLUCOSE RANDOM (BEAKER) 135 mg/dL 70-105 (test bdtp=640) CALCIUM (BEAKER) (test 9.5 mg/dL 8.4-10.2 ovql=007) EGFR (BEAKER) (test 38 mL/min/1.73 sq m ESTIMATED GFR IS NOT mqpn=2996) ACCURATE CREATININE CLEARANCE IN PREDICTING GLOMERULAR FILTRATION RATE. ESTIMATED GFR IS NOT APPLICABLE FOR DIALYSIS PATIENTS. POCT-GLUCOSE [id number] 21:13:00 Test Item Value Reference Range Comments POC-GLUCOSE METER (BEAKER) 145 mg/dL 70-110 TESTED AT [address] (test qswx=0786) [place] [address] POCT-GLUCOSE [id number] 17:08:00 Test Item Value Reference Range Comments POC-GLUCOSE METER (BEAKER) 134 mg/dL 70-110 TESTED AT [address] (test vqes=1569) [place] [id number] POCT-GLUCOSE [id number] 11:44:00 Test Item Value Reference Range Comments POC-GLUCOSE METER (BEAKER) 159 mg/dL 70-110 TESTED AT [address] (test apng=3606) [place] [id number] POCT-GLUCOSE [id number] 08:07:00 Test Item Value Reference Range Comments POC-GLUCOSE METER (BEAKER) 152 mg/dL 70-110 TESTED AT [address] (test jodz=6112) [place] [id number] CALCIUM, [id number] 05:26:00 Test Item Value Reference Range Comments CALCIUM IONIZED (BEAKER) (test jwcu=336) 1.10 mmol/L 1.12-1.27 PH, BLOOD (BEAKER) (test iygw=0818) 7.42 [id number] 05:05:00 Test Item Value Reference Range Comments PHOSPHORUS (BEAKER) (test kyev=161) 4.6 mg/dL 2.3-4.7 [id number] 05:05:00 Test Item Value Reference Range Comments MAGNESIUM (BEAKER) (test mwsp=506) 1.6 mg/dL 1.6-2.6 COMPREHENSIVE METABOLIC [id number] 05:05:00 Test Item Value Reference Range Comments TOTAL PROTEIN (BEAKER) 6.9 gm/dL 6.0-8.3 (test drti=079) ALBUMIN (BEAKER) (test 3.2 g/dL 3.5-5.0 amwj=7205) ALKALINE PHOSPHATASE 55 U/L 40-150 (BEAKER) (test lrpk=633) BILIRUBIN TOTAL (BEAKER) 0.6 mg/dL 0.2-1.2 (test ijfm=077) SODIUM (BEAKER) (test 139 meq/L 136-145 isgg=536) POTASSIUM (BEAKER) (test 3.9 meq/L 3.5-5.1 fixs=345) CHLORIDE (BEAKER) (test 100 meq/L 98-107 zlaa=854) CO2 (BEAKER) (test 27 meq/L 22-29 nlrb=512) BLOOD UREA NITROGEN 15 mg/dL 7-21 (BEAKER) (test omgv=537) CREATININE (BEAKER) (test 1.55 mg/dL 0.57-1.25 mbrx=184) GLUCOSE RANDOM (BEAKER) 125 mg/dL 70-105 (test yumq=191) CALCIUM (BEAKER) (test 9.2 mg/dL 8.4-10.2 pqgm=976) AST (SGOT) (BEAKER) (test 16 U/L 5-34 kfxq=400) ALT (SGPT) (BEAKER) (test 11 U/L 6-55 gbkm=662) EGFR (BEAKER) (test 40 mL/min/1.73 sq m ESTIMATED GFR IS NOT yniv=5129) ACCURATE CREATININE CLEARANCE IN PREDICTING GLOMERULAR FILTRATION RATE. ESTIMATED GFR IS NOT APPLICABLE FOR DIALYSIS PATIENTS. CBC W/PLT COUNT & AUTO [id number] 04:57:00 Test Item Value Reference Range Comments WHITE BLOOD CELL COUNT (BEAKER) (test xsdv=217) 10.8 K/ L 3.5-10.5 RED BLOOD CELL COUNT (BEAKER) (test cyau=058) 2.57 M/ L 3.93-5.22 HEMOGLOBIN (BEAKER) (test rtzx=705) 7.9 GM/DL 11.2-15.7 HEMATOCRIT (BEAKER) (test arcy=949) 25.2 % 34.1-44.9 MEAN CORPUSCULAR VOLUME (BEAKER) (test audp=877) 98.1 fL 79.4-94.8 MEAN CORPUSCULAR HEMOGLOBIN (BEAKER) (test 30.7 pg 25.6-32.2 pska=023) MEAN CORPUSCULAR HEMOGLOBIN CONC (BEAKER) (test 31.3 GM/DL 32.2-35.5 bnhv=994) RED CELL DISTRIBUTION WIDTH (BEAKER) (test 15.9 % 11.7-14.4 zvdw=664) PLATELET COUNT (BEAKER) (test nccc=252) 623 K/CU MM 150-450 MEAN PLATELET VOLUME (BEAKER) (test ovgn=615) 9.4 fL 9.4-12.3 NUCLEATED RED BLOOD CELLS (BEAKER) (test 0 /100 WBC 0-0 hywx=146) NEUTROPHILS RELATIVE PERCENT (BEAKER) (test 79 % asfs=085) LYMPHOCYTES RELATIVE PERCENT (BEAKER) (test 12 % ahpm=791) MONOCYTES RELATIVE PERCENT (BEAKER) (test 7 % oboh=081) EOSINOPHILS RELATIVE PERCENT (BEAKER) (test 2 % xpcb=277) BASOPHILS RELATIVE PERCENT (BEAKER) (test 1 % kfwc=867) NEUTROPHILS ABSOLUTE COUNT (BEAKER) (test 8.49 K/ L 1.56-6.13 iewb=191) LYMPHOCYTES ABSOLUTE COUNT (BEAKER) (test 1.28 K/ L 1.18-3.74 fqnz=719) MONOCYTES ABSOLUTE COUNT (BEAKER) (test 0.74 K/ L 0.24-0.36 dfsr=342) EOSINOPHILS ABSOLUTE COUNT (BEAKER) (test 0.18 K/ L 0.04-0.36 xanr=154) BASOPHILS ABSOLUTE COUNT (BEAKER) (test 0.05 K/ L 0.01-0.08 anub=620) IMMATURE GRANULOCYTES-RELATIVE PERCENT (BEAKER) 1 % 0-1 (test tpqh=7946) POCT-GLUCOSE [id number] 01:29:00 Test Item Value Reference Range Comments POC-GLUCOSE METER (BEAKER) 182 mg/dL 70-110 TESTED AT [address] (test cvdx=7440) [place] [id number] POCT-GLUCOSE [id number] 22:32:00 Test Item Value Reference Range Comments POC-GLUCOSE METER (BEAKER) 204 mg/dL 70-110 TESTED AT [address] (test zlwf=0064) [place] [address] POCT-GLUCOSE [id number] 18:53:00 Test Item Value Reference Range Comments POC-GLUCOSE METER (BEAKER) 154 mg/dL 70-110 TESTED AT [address] (test emwo=5962) [place] [address] POCT-GLUCOSE [id number] 15:50:00 Test Item Value Reference Range Comments POC-GLUCOSE METER (BEAKER) 172 mg/dL 70-110 TESTED AT [address] (test xhpw=0328) [place] [address] B-TYPE NATRIURETIC FACTOR (BNP)2017-08-01 15:41:00 Test Item Value Reference Range Comments B-TYPE NATRIURETIC PEPTIDE (BEAKER) (test 1253 pg/mL 0-100 iinc=051) RAD, CHEST, 1 VIEW, NON [id number] 15:00:00Reason for exam:->SOBShould this be performed at the bedside?->YesFINAL REPORT Chest one view compared to July 28, 2017 Discussion: There is cardiac prominence. Lungs are grossly clear. No effusion or pneumothorax. There is either hiatal hernia or aortic tortuosity. IMPRESSIONS: No significant change. Signed: Tony Hsu Verified Date/Time: 08/01/2017 15:00:05 Reading Location: [facility] [id number] Consult Reading Room Electronicallysigned by: TONY HSU M.D. on 08/01/2017 03:00 PMPOCT-GLUCOSE [id number] 09:28:00 Test Item Value Reference Range Comments POC-GLUCOSE METER (BEAKER) 155 mg/dL 70-110 TESTED AT [address] (test qmtq=1660) [place] [address] BASIC METABOLIC [id number] 08:00:00 Test Item Value Reference Range Comments SODIUM (BEAKER) (test 138 meq/L 136-145 jdxt=507) POTASSIUM (BEAKER) (test 3.8 meq/L 3.5-5.1 viyf=156) CHLORIDE (BEAKER) (test 100 meq/L 98-107 qjlb=090) CO2 (BEAKER) (test 27 meq/L 22-29 wmby=912) BLOOD UREA NITROGEN 14 mg/dL 7-21 (BEAKER) (test akci=714) CREATININE (BEAKER) (test 1.47 mg/dL 0.57-1.25 nsjc=366) GLUCOSE RANDOM (BEAKER) 150 mg/dL 70-105 (test rhyg=729) CALCIUM (BEAKER) (test 9.0 mg/dL 8.4-10.2 hkxl=119) EGFR (BEAKER) (test 43 mL/min/1.73 sq m ESTIMATED GFR IS NOT hodg=8324) ACCURATE CREATININE CLEARANCE IN PREDICTING GLOMERULAR FILTRATION RATE. ESTIMATED GFR IS NOT APPLICABLE FOR DIALYSIS PATIENTS. CBC W/PLT COUNT & AUTO [id number] 07:54:00 Test Item Value Reference Range Comments WHITE BLOOD CELL COUNT (BEAKER) (test ofnh=167) 12.4 K/ L 3.5-10.5 RED BLOOD CELL COUNT (BEAKER) (test ytvi=547) 2.57 M/ L 3.93-5.22 HEMOGLOBIN (BEAKER) (test owmz=777) 7.7 GM/DL 11.2-15.7 HEMATOCRIT (BEAKER) (test szic=234) 25.0 % 34.1-44.9 MEAN CORPUSCULAR VOLUME (BEAKER) (test imzp=829) 97.3 fL 79.4-94.8 MEAN CORPUSCULAR HEMOGLOBIN (BEAKER) (test 30.0 pg 25.6-32.2 ejgs=351) MEAN CORPUSCULAR HEMOGLOBIN CONC (BEAKER) (test 30.8 GM/DL 32.2-35.5 tzuv=595) RED CELL DISTRIBUTION WIDTH (BEAKER) (test 15.8 % 11.7-14.4 zjcm=718) PLATELET COUNT (BEAKER) (test sdfn=695) 582 K/CU MM 150-450 MEAN PLATELET VOLUME (BEAKER) (test sxbi=076) 9.5 fL 9.4-12.3 NUCLEATED RED BLOOD CELLS (BEAKER) (test 0 /100 WBC 0-0 jedd=141) NEUTROPHILS RELATIVE PERCENT (BEAKER) (test 82 % znrk=025) LYMPHOCYTES RELATIVE PERCENT (BEAKER) (test 10 % atdb=550) MONOCYTES RELATIVE PERCENT (BEAKER) (test 6 % dwyx=680) EOSINOPHILS RELATIVE PERCENT (BEAKER) (test 1 % xfir=923) BASOPHILS RELATIVE PERCENT (BEAKER) (test 1 % vkak=359) NEUTROPHILS ABSOLUTE COUNT (BEAKER) (test 10.08 K/ L 1.56-6.13 negs=589) LYMPHOCYTES ABSOLUTE COUNT (BEAKER) (test 1.19 K/ L 1.18-3.74 sdbd=943) MONOCYTES ABSOLUTE COUNT (BEAKER) (test 0.74 K/ L 0.24-0.36 wfop=585) EOSINOPHILS ABSOLUTE COUNT (BEAKER) (test 0.16 K/ L 0.04-0.36 zkrn=393) BASOPHILS ABSOLUTE COUNT (BEAKER) (test 0.10 K/ L 0.01-0.08 zjmm=922) IMMATURE GRANULOCYTES-RELATIVE PERCENT (BEAKER) 1 % 0-1 (test vksa=6480) POCT-GLUCOSE [id number] 21:34:00 Test Item Value Reference Range Comments POC-GLUCOSE METER (BEAKER) 153 mg/dL 70-110 TESTED AT [address] (test kaeq=9411) [place] [address] POCT-GLUCOSE [id number] 17:34:00 Test Item Value Reference Range Comments POC-GLUCOSE METER (BEAKER) 165 mg/dL 70-110 TESTED AT [address] (test lmlg=3358) [place] [address] POCT-GLUCOSE [id number] 14:33:00 Test Item Value Reference Range Comments POC-GLUCOSE METER (BEAKER) 208 mg/dL 70-110 TESTED AT [address] (test thmx=4268) [place] [address] POCT-GLUCOSE [id number] 12:54:00 Test Item Value Reference Range Comments POC-GLUCOSE METER (BEAKER) 218 mg/dL 70-110 TESTED AT [address] (test tjqi=0444) [place] [address] POCT-GLUCOSE [id number] 10:34:00 Test Item Value Reference Range Comments POC-GLUCOSE METER (BEAKER) 204 mg/dL 70-110 TESTED AT [facility] [address] [facility] (test kmxu=9983) [facility] [address] POCT-GLUCOSE [id number] 08:41:00 Test Item Value Reference Range Comments POC-GLUCOSE METER (BEAKER) 201 mg/dL 70-110 TESTED AT [facility] [address] [facility] (test lbpe=8130) [facility] [address] [id number] 05:54:00 Test Item Value Reference Range Comments MAGNESIUM (BEAKER) (test dnjq=305) 1.8 mg/dL 1.6-2.6 BASIC METABOLIC [id number] 05:54:00 Test Item Value Reference Range Comments SODIUM (BEAKER) (test 138 meq/L 136-145 kdgl=077) POTASSIUM (BEAKER) (test 3.6 meq/L 3.5-5.1 xqvy=269) CHLORIDE (BEAKER) (test 100 meq/L 98-107 cncq=825) CO2 (BEAKER) (test 25 meq/L 22-29 uwqk=511) BLOOD UREA NITROGEN 14 mg/dL 7-21 (BEAKER) (test jkoq=774) CREATININE (BEAKER) (test 1.42 mg/dL 0.57-1.25 uybz=531) GLUCOSE RANDOM (BEAKER) 145 mg/dL 70-105 (test wpcy=742) CALCIUM (BEAKER) (test 9.4 mg/dL 8.4-10.2 dovo=444) EGFR (BEAKER) (test 44 mL/min/1.73 sq m ESTIMATED GFR IS NOT tmnr=4294) ACCURATE CREATININE CLEARANCE IN PREDICTING GLOMERULAR FILTRATION RATE. ESTIMATED GFR IS NOT APPLICABLE FOR DIALYSIS PATIENTS. CBC (HEMOGRAM ONLY)2017-07-31 05:42:00 Test Item Value Reference Range Comments WHITE BLOOD CELL COUNT (BEAKER) (test ktjk=898) 13.3 K/ L 3.5-10.5 RED BLOOD CELL COUNT (BEAKER) (test ahsj=382) 2.65 M/ L 3.93-5.22 HEMOGLOBIN (BEAKER) (test hrcv=191) 7.9 GM/DL 11.2-15.7 HEMATOCRIT (BEAKER) (test zdrz=048) 25.9 % 34.1-44.9 MEAN CORPUSCULAR VOLUME (BEAKER) (test xyfb=627) 97.7 fL 79.4-94.8 MEAN CORPUSCULAR HEMOGLOBIN (BEAKER) (test 29.8 pg 25.6-32.2 ppmj=920) MEAN CORPUSCULAR HEMOGLOBIN CONC (BEAKER) (test 30.5 GM/DL 32.2-35.5 elhv=221) RED CELL DISTRIBUTION WIDTH (BEAKER) (test 15.3 % 11.7-14.4 pern=506) PLATELET COUNT (BEAKER) (test nvyw=920) 580 K/CU MM 150-450 MEAN PLATELET VOLUME (BEAKER) (test abyk=747) 9.7 fL 9.4-12.3 NUCLEATED RED BLOOD CELLS (BEAKER) (test 0 /100 WBC 0-0 wxuz=328) POCT-GLUCOSE [id number] 21:21:00 Test Item Value Reference Range Comments POC-GLUCOSE METER (BEAKER) 206 mg/dL 70-110 TESTED AT [address] (test yswz=3081) [place] [id number] POCT-GLUCOSE [id number] 17:50:00 Test Item Value Reference Range Comments POC-GLUCOSE METER (BEAKER) 160 mg/dL 70-110 TESTED AT [address] (test rktq=4086) [place] [id number] POCT-GLUCOSE [id number] 12:12:00 Test Item Value Reference Range Comments POC-GLUCOSE METER (BEAKER) 214 mg/dL 70-110 TESTED AT [address] (test yrzi=6000) [place] [id number] POCT-GLUCOSE [id number] 07:59:00 Test Item Value Reference Range Comments POC-GLUCOSE METER (BEAKER) 146 mg/dL 70-110 TESTED AT [address] (test qckf=6333) [facility] [address] CALCIUM, [id number] 07:23:00 Test Item Value Reference Range Comments CALCIUM IONIZED (BEAKER) (test tpiv=978) 1.11 mmol/L 1.12-1.27 PH, BLOOD (BEAKER) (test wtov=8683) 7.42 [id number] 07:07:00 Test Item Value Reference Range Comments PHOSPHORUS (BEAKER) (test plvw=513) 3.5 mg/dL 2.3-4.7 [id number] 07:07:00 Test Item Value Reference Range Comments MAGNESIUM (BEAKER) (test vuls=902) 1.8 mg/dL 1.6-2.6 COMPREHENSIVE METABOLIC [id number] 07:07:00 Test Item Value Reference Range Comments TOTAL PROTEIN (BEAKER) 6.7 gm/dL 6.0-8.3 (test nqzt=401) ALBUMIN (BEAKER) (test 3.1 g/dL 3.5-5.0 fesv=6755) ALKALINE PHOSPHATASE 53 U/L 40-150 (BEAKER) (test ykvh=747) BILIRUBIN TOTAL (BEAKER) 0.6 mg/dL 0.2-1.2 (test ceol=474) SODIUM (BEAKER) (test 139 meq/L 136-145 ushw=674) POTASSIUM (BEAKER) (test 4.0 meq/L 3.5-5.1 imsm=194) CHLORIDE (BEAKER) (test 103 meq/L 98-107 jdoj=540) CO2 (BEAKER) (test 27 meq/L 22-29 thkz=843) BLOOD UREA NITROGEN 16 mg/dL 7-21 (BEAKER) (test ymyh=073) CREATININE (BEAKER) (test 1.34 mg/dL 0.57-1.25 aaee=386) GLUCOSE RANDOM (BEAKER) 116 mg/dL 70-105 (test bynz=571) CALCIUM (BEAKER) (test 9.2 mg/dL 8.4-10.2 ovpc=507) AST (SGOT) (BEAKER) (test 15 U/L 5-34 edxd=156) ALT (SGPT) (BEAKER) (test 11 U/L 6-55 zlme=555) EGFR (BEAKER) (test 47 mL/min/1.73 sq m ESTIMATED GFR IS NOT bhud=4464) ACCURATE CREATININE CLEARANCE IN PREDICTING GLOMERULAR FILTRATION RATE. ESTIMATED GFR IS NOT APPLICABLE FOR DIALYSIS PATIENTS. CBC W/PLT COUNT & AUTO [id number] 06:52:00 Test Item Value Reference Range Comments WHITE BLOOD CELL COUNT (BEAKER) (test xcgx=253) 12.8 K/ L 3.5-10.5 RED BLOOD CELL COUNT (BEAKER) (test xmns=127) 2.43 M/ L 3.93-5.22 HEMOGLOBIN (BEAKER) (test swzs=696) 7.2 GM/DL 11.2-15.7 HEMATOCRIT (BEAKER) (test tqod=497) 23.8 % 34.1-44.9 MEAN CORPUSCULAR VOLUME (BEAKER) (test mxvp=744) 97.9 fL 79.4-94.8 MEAN CORPUSCULAR HEMOGLOBIN (BEAKER) (test 29.6 pg 25.6-32.2 fwtd=664) MEAN CORPUSCULAR HEMOGLOBIN CONC (BEAKER) (test 30.3 GM/DL 32.2-35.5 cijl=345) RED CELL DISTRIBUTION WIDTH (BEAKER) (test 15.0 % 11.7-14.4 wcyo=061) PLATELET COUNT (BEAKER) (test nrjm=426) 456 K/CU MM 150-450 MEAN PLATELET VOLUME (BEAKER) (test ccrg=785) 10.3 fL 9.4-12.3 NUCLEATED RED BLOOD CELLS (BEAKER) (test 0 /100 WBC 0-0 kynw=834) NEUTROPHILS RELATIVE PERCENT (BEAKER) (test 82 % ddxv=435) LYMPHOCYTES RELATIVE PERCENT (BEAKER) (test 9 % wkod=084) MONOCYTES RELATIVE PERCENT (BEAKER) (test 6 % lknw=691) EOSINOPHILS RELATIVE PERCENT (BEAKER) (test 2 % neag=200) BASOPHILS RELATIVE PERCENT (BEAKER) (test 0 % dxmq=611) NEUTROPHILS ABSOLUTE COUNT (BEAKER) (test 10.52 K/ L 1.56-6.13 egjv=798) LYMPHOCYTES ABSOLUTE COUNT (BEAKER) (test 1.19 K/ L 1.18-3.74 wmbl=951) MONOCYTES ABSOLUTE COUNT (BEAKER) (test 0.73 K/ L 0.24-0.36 uxbg=872) EOSINOPHILS ABSOLUTE COUNT (BEAKER) (test 0.22 K/ L 0.04-0.36 jbxw=965) BASOPHILS ABSOLUTE COUNT (BEAKER) (test 0.04 K/ L 0.01-0.08 wwwf=543) IMMATURE GRANULOCYTES-RELATIVE PERCENT (BEAKER) 1 % 0-1 (test wjpg=0029) POCT-GLUCOSE [id number] 21:47:00 Test Item Value Reference Range Comments POC-GLUCOSE METER (BEAKER) 106 mg/dL 70-110 TESTED AT [address] (test ytch=9521) [place] [id number] POCT-GLUCOSE [id number] 18:50:00 Test Item Value Reference Range Comments POC-GLUCOSE METER (BEAKER) 175 mg/dL 70-110 TESTED AT [address] (test bwok=5985) [place] [id number] 15:18:00 Test Item Value Reference Range Comments POTASSIUM (BEAKER) (test ijbe=766) 3.7 meq/L 3.5-5.1 [id number] 15:18:00 Test Item Value Reference Range Comments MAGNESIUM (BEAKER) (test kyuv=773) 2.2 mg/dL 1.6-2.6 POCT-GLUCOSE [id number] 11:48:00 Test Item Value Reference Range Comments POC-GLUCOSE METER (BEAKER) 131 mg/dL 70-110 TESTED AT [address] (test ldoo=5877) [place] [id number] BLOOD GAS, [id number] 11:46:00 Test Item Value Reference Range Comments PH ARTERIAL (BEAKER) (test fxim=328) 7.43 7.35-7.45 PCO2 ARTERIAL (BEAKER) (test tszm=850) 46 mmHg 35-45 PO2 ARTERIAL (BEAKER) (test ssjo=147) 83 mmHg 80-90 O2 SATURATION ARTERIAL (BEAKER) (test pedp=111) 96.5 % 96.0-97.0 HCO3 ARTERIAL (BEAKER) (test wqth=574) 30 mmol/L 21-29 BASE EXCESS ARTERIAL (BEAKER) (test owkn=798) 4.8 mmol/L -2.0-3.0 PATIENT TEMPERATURE (BEAKER) (test ahzo=6376) 36.9 C FIO2 (BEAKER) (test kdmm=1019) 36.0 % POCT-GLUCOSE [id number] 08:29:00 Test Item Value Reference Range Comments POC-GLUCOSE METER (BEAKER) 129 mg/dL 70-110 TESTED AT [address] (test fhxm=8178) [place] [id number] CALCIUM, [id number] 04:18:00 Test Item Value Reference Range Comments CALCIUM IONIZED (BEAKER) (test kywy=824) 1.11 mmol/L 1.12-1.27 PH, BLOOD (BEAKER) (test yhmw=2451) 7.40 B-TYPE NATRIURETIC FACTOR (BNP)2017-07-29 04:06:00 Test Item Value Reference Range Comments B-TYPE NATRIURETIC PEPTIDE (BEAKER) (test 982 pg/mL 0-100 pdqd=626) [id number] 03:59:00 Test Item Value Reference Range Comments PHOSPHORUS (BEAKER) (test qjzm=234) 3.6 mg/dL 2.3-4.7 [id number] 03:59:00 Test Item Value Reference Range Comments MAGNESIUM (BEAKER) (test robe=119) 1.9 mg/dL 1.6-2.6 BASIC METABOLIC [id number] 03:59:00 Test Item Value Reference Range Comments SODIUM (BEAKER) (test 141 meq/L 136-145 kmgq=783) POTASSIUM (BEAKER) (test 3.1 meq/L 3.5-5.1 npls=263) CHLORIDE (BEAKER) (test 103 meq/L 98-107 mdev=580) CO2 (BEAKER) (test 26 meq/L 22-29 xuan=900) BLOOD UREA NITROGEN 17 mg/dL 7-21 (BEAKER) (test lgnm=962) CREATININE (BEAKER) (test 1.43 mg/dL 0.57-1.25 jvnc=579) GLUCOSE RANDOM (BEAKER) 110 mg/dL 70-105 (test keno=141) CALCIUM (BEAKER) (test 9.0 mg/dL 8.4-10.2 buof=689) EGFR (BEAKER) (test 44 mL/min/1.73 sq m ESTIMATED GFR IS NOT brue=3860) ACCURATE CREATININE CLEARANCE IN PREDICTING GLOMERULAR FILTRATION RATE. ESTIMATED GFR IS NOT APPLICABLE FOR DIALYSIS PATIENTS. CBC (HEMOGRAM ONLY)2017-07-29 03:51:00 Test Item Value Reference Range Comments WHITE BLOOD CELL COUNT (BEAKER) (test xoch=866) 12.2 K/ L 3.5-10.5 RED BLOOD CELL COUNT (BEAKER) (test sjco=732) 2.48 M/ L 3.93-5.22 HEMOGLOBIN (BEAKER) (test yudw=299) 7.4 GM/DL 11.2-15.7 HEMATOCRIT (BEAKER) (test acat=327) 24.2 % 34.1-44.9 MEAN CORPUSCULAR VOLUME (BEAKER) (test kkvh=878) 97.6 fL 79.4-94.8 MEAN CORPUSCULAR HEMOGLOBIN (BEAKER) (test 29.8 pg 25.6-32.2 hjrd=189) MEAN CORPUSCULAR HEMOGLOBIN CONC (BEAKER) (test 30.6 GM/DL 32.2-35.5 czdk=507) RED CELL DISTRIBUTION WIDTH (BEAKER) (test 15.1 % 11.7-14.4 zbye=767) PLATELET COUNT (BEAKER) (test nqfe=215) 410 K/CU MM 150-450 MEAN PLATELET VOLUME (BEAKER) (test zywf=784) 10.2 fL 9.4-12.3 NUCLEATED RED BLOOD CELLS (BEAKER) (test 0 /100 WBC 0-0 mygk=623) POCT-GLUCOSE [id number] 23:55:00 Test Item Value Reference Range Comments POC-GLUCOSE METER (BEAKER) 164 mg/dL 70-110 TESTED AT [address] (test wvev=3427) [facility] [address] HERPES VIRUS ANTIBODY, [id number] 11:02:00 Test Item Value Reference Range Comments HERPES VIRUS IGM (BEAKER) (test obyv=0970) Negative HSV IgM 1=NEGATIVEHSV IgM 2=NEGATIVETOXOPLASMA GONDII ANTIBODY, [id number] 11 :02:00 Test Item Value Reference Range Comments TOXOPLASMA IGM ANTIBODY (BEAKER) (test hprq=070) Negative RAD, CHEST, 1 VIEW, NON [id number] 10:48:00Reason for exam:->acute respiratory insufficiencyShould this be [...] Martinezort Verified Date/Time: 07/28/2017 10:48:24 Reading Location: [facility] Radiology Reading Room [id number] 05:13:00 Test Item Value Reference Range Comments PHOSPHORUS (BEAKER) (test wodt=828) 3.3 mg/dL 2.3-4.7 [id number] 05:13:00 Test Item Value Reference Range Comments MAGNESIUM (BEAKER) (test otoq=116) 1.9 mg/dL 1.6-2.6 HEPATIC FUNCTION [id number] 05:13:00 Test Item Value Reference Range Comments TOTAL PROTEIN (BEAKER) (test diez=030) 7.5 gm/dL 6.0-8.3 ALBUMIN (BEAKER) (test kyyy=9531) 3.6 g/dL 3.5-5.0 BILIRUBIN TOTAL (BEAKER) (test zhzf=239) 0.9 mg/dL 0.2-1.2 BILIRUBIN DIRECT (BEAKER) (test guut=042) 0.4 mg/dL 0.1-0.5 ALKALINE PHOSPHATASE (BEAKER) (test tudc=282) 66 U/L 40-150 AST (SGOT) (BEAKER) (test lwlp=909) 21 U/L 5-34 ALT (SGPT) (BEAKER) (test yxwa=218) 17 U/L 6-55 COMPREHENSIVE METABOLIC [id number] 05:13:00 Test Item Value Reference Range Comments TOTAL PROTEIN (BEAKER) 7.5 gm/dL 6.0-8.3 (test woab=666) ALBUMIN (BEAKER) (test 3.6 g/dL 3.5-5.0 gbev=7270) ALKALINE PHOSPHATASE 66 U/L 40-150 (BEAKER) (test lebp=611) BILIRUBIN TOTAL (BEAKER) 0.9 mg/dL 0.2-1.2 (test pbds=745) SODIUM (BEAKER) (test 143 meq/L 136-145 wciw=237) POTASSIUM (BEAKER) (test 3.5 meq/L 3.5-5.1 oxav=354) CHLORIDE (BEAKER) (test 105 meq/L 98-107 japs=802) CO2 (BEAKER) (test 25 meq/L 22-29 egiu=511) BLOOD UREA NITROGEN 18 mg/dL 7-21 (BEAKER) (test murl=357) CREATININE (BEAKER) (test 1.43 mg/dL 0.57-1.25 qnxe=898) GLUCOSE RANDOM (BEAKER) 130 mg/dL 70-105 (test hlex=345) CALCIUM (BEAKER) (test 9.6 mg/dL 8.4-10.2 xeag=556) AST (SGOT) (BEAKER) (test 21 U/L 5-34 ects=765) ALT (SGPT) (BEAKER) (test 17 U/L 6-55 kcuw=955) EGFR (BEAKER) (test 44 mL/min/1.73 sq m ESTIMATED GFR IS NOT ijoo=7567) ACCURATE CREATININE CLEARANCE IN PREDICTING GLOMERULAR FILTRATION RATE. ESTIMATED GFR IS NOT APPLICABLE FOR DIALYSIS PATIENTS. LACTATE DEHYDROGENASE (LDH)2017-07-28 05:13:00 Test Item Value Reference Range Comments LACTATE DEHYDROGENASE (BEAKER) (test cpop=878) 639 U/L 125-220 CBC W/PLT COUNT & AUTO [id number] 04:57:00 Test Item Value Reference Range Comments WHITE BLOOD CELL COUNT (BEAKER) (test vvxr=178) 13.6 K/ L 3.5-10.5 RED BLOOD CELL COUNT (BEAKER) (test idyv=757) 2.86 M/ L 3.93-5.22 HEMOGLOBIN (BEAKER) (test mide=744) 8.5 GM/DL 11.2-15.7 HEMATOCRIT (BEAKER) (test jfej=525) 28.9 % 34.1-44.9 MEAN CORPUSCULAR VOLUME (BEAKER) (test vqmk=319) 101.0 fL 79.4-94.8 MEAN CORPUSCULAR HEMOGLOBIN (BEAKER) (test 29.7 pg 25.6-32.2 uxtl=695) MEAN CORPUSCULAR HEMOGLOBIN CONC (BEAKER) (test 29.4 GM/DL 32.2-35.5 odmy=372) RED CELL DISTRIBUTION WIDTH (BEAKER) (test 15.2 % 11.7-14.4 dzsa=459) PLATELET COUNT (BEAKER) (test vgus=160) 375 K/CU MM 150-450 MEAN PLATELET VOLUME (BEAKER) (test hgpe=236) 10.7 fL 9.4-12.3 NUCLEATED RED BLOOD CELLS (BEAKER) (test 0 /100 WBC 0-0 axla=886) NEUTROPHILS RELATIVE PERCENT (BEAKER) (test 82 % bvie=866) LYMPHOCYTES RELATIVE PERCENT (BEAKER) (test 9 % jfsl=670) MONOCYTES RELATIVE PERCENT (BEAKER) (test 6 % zjjs=857) EOSINOPHILS RELATIVE PERCENT (BEAKER) (test 2 % ubod=508) BASOPHILS RELATIVE PERCENT (BEAKER) (test 1 % qpfc=217) NEUTROPHILS ABSOLUTE COUNT (BEAKER) (test 11.11 K/ L 1.56-6.13 wtyx=010) LYMPHOCYTES ABSOLUTE COUNT (BEAKER) (test 1.17 K/ L 1.18-3.74 qkoz=541) MONOCYTES ABSOLUTE COUNT (BEAKER) (test 0.83 K/ L 0.24-0.36 kwix=052) EOSINOPHILS ABSOLUTE COUNT (BEAKER) (test 0.25 K/ L 0.04-0.36 qujr=612) BASOPHILS ABSOLUTE COUNT (BEAKER) (test 0.07 K/ L 0.01-0.08 qonj=978) IMMATURE GRANULOCYTES-RELATIVE PERCENT (BEAKER) 1 % 0-1 (test tlby=2865) OCCULT BLOOD, [id number] 01:02:00 Test Item Value Reference Range Comments FECAL OCCULT BLOOD (BEAKER) (test nufd=524) Negative Negative POCT-GLUCOSE [id number] 00:46:00 Test Item Value Reference Range Comments POC-GLUCOSE METER (BEAKER) 149 mg/dL 70-110 TESTED AT [address] (test bayg=2514) [facility] [address] C. DIFFICILE GDH [id number] 19:51:00 Test Item Value Reference Range Comments CDT TOXIN (test Negative Negative jdyu=[id number]) CDT GDH ANTIGEN (test Negative Negative No indication of Clostridium uxpf=[id number]) difficile infection and no colonization. Discontinue enteric isolation and therapy. Testing performed by [employer] Rapid Cassette Assay. For GDH, published sensitivity of the assay is 98.7% compared to cytotoxicity testing. For Toxin AB, published sensitivity is 87.8% and specificity 99.4% compared to cytotoxicity testing.Verification of kit performance was done by the [facility] Microbiology Lab prior to clinical use.POCT-GLUCOSE [id number] 18:11:00 Test Item Value Reference Range Comments POC-GLUCOSE METER (BEAKER) 201 mg/dL 70-110 TESTED AT [address] (test pkeg=9941) [facility] [address] BLOOD GAS, [id number] 17:03:00 Test Item Value Reference Range Comments PH ARTERIAL (BEAKER) (test eblk=276) 7.41 7.35-7.45 PCO2 ARTERIAL (BEAKER) (test tjyz=722) 45 mmHg 35-45 PO2 ARTERIAL (BEAKER) (test dnfe=367) 94 mmHg 80-90 O2 SATURATION ARTERIAL (BEAKER) (test nkcv=720) 97.3 % 96.0-97.0 HCO3 ARTERIAL (BEAKER) (test occe=785) 28 mmol/L 21-29 BASE EXCESS ARTERIAL (BEAKER) (test yrfl=536) 2.3 mmol/L -2.0-3.0 PATIENT TEMPERATURE (BEAKER) (test rbnp=1937) 36.6 C FIO2 (BEAKER) (test rvjw=6790) 40.0 % POCT-GLUCOSE [id number] 12:44:00 Test Item Value Reference Range Comments POC-GLUCOSE METER (BEAKER) 117 mg/dL 70-110 TESTED AT [address] (test auoy=0635) [facility] [address] B-TYPE NATRIURETIC FACTOR (BNP)2017-07-27 11:13:00 Test Item Value Reference Range Comments B-TYPE NATRIURETIC PEPTIDE (BEAKER) (test 1198 pg/mL 0-100 trpk=261) LACTIC ACID, VENOUS, WHOLE [id number] 11:12:00 Test Item Value Reference Range Comments LACTATE BLOOD VENOUS (2) (BEAKER) (test 0.7 mmol/L 0.5-2.2 cpsc=8000) Effective 08/06/2015: Units/Reference Range ChangeNew: 0.5-2.2 mmol/L Previous: 5 -20 mg/dLOXYGEN SATURATION, [id number] 10:28:00 Test Item Value Reference Range Comments O2 SATURATION (MEASURED) (BEAKER) (test zvti=3256) 59.6 % RAD, CHEST, 1 VIEW, NON [id number] 08:23:00Reason for exam:->acute respiratory insufficiencyShould this be [...] Verified Date/Time: 07/27/2017 08:23 :08 Reading Location: [facility] Radiology Reading Room POCT-GLUCOSE [id number] 07:53:00 Test Item Value Reference Range Comments POC-GLUCOSE METER (BEAKER) 124 mg/dL 70-110 TESTED AT [facility] [address] [place] [address] (test rlqm=9422) [facility] [address] BASIC METABOLIC [id number] 06:33:00 Test Item Value Reference Range Comments SODIUM (BEAKER) (test 144 meq/L 136-145 aulb=670) POTASSIUM (BEAKER) (test 3.8 meq/L 3.5-5.1 mlcb=155) CHLORIDE (BEAKER) (test 109 meq/L 98-107 ejcn=774) CO2 (BEAKER) (test 24 meq/L 22-29 dgnl=556) BLOOD UREA NITROGEN 20 mg/dL 7-21 (BEAKER) (test umfd=818) CREATININE (BEAKER) (test 1.40 mg/dL 0.57-1.25 znww=932) GLUCOSE RANDOM (BEAKER) 111 mg/dL 70-105 (test noxl=542) CALCIUM (BEAKER) (test 8.8 mg/dL 8.4-10.2 ydwj=141) EGFR (BEAKER) (test 45 mL/min/1.73 sq m ESTIMATED GFR IS NOT mjyj=8074) ACCURATE CREATININE CLEARANCE IN PREDICTING GLOMERULAR FILTRATION RATE. ESTIMATED GFR IS NOT APPLICABLE FOR DIALYSIS PATIENTS. [id number] 06:24:00 Test Item Value Reference Range Comments PHOSPHORUS (BEAKER) (test bkrr=367) 3.3 mg/dL 2.3-4.7 BASIC METABOLIC [id number] 06:24:00 Test Item Value Reference Range Comments SODIUM (BEAKER) (test 145 meq/L 136-145 rqck=893) POTASSIUM (BEAKER) (test 3.8 meq/L 3.5-5.1 rkir=559) CHLORIDE (BEAKER) (test 110 meq/L 98-107 fdvc=442) CO2 (BEAKER) (test 24 meq/L 22-29 ldjc=820) BLOOD UREA NITROGEN 21 mg/dL 7-21 (BEAKER) (test mfvx=353) CREATININE (BEAKER) (test 1.39 mg/dL 0.57-1.25 undj=911) GLUCOSE RANDOM (BEAKER) 112 mg/dL 70-105 (test udpx=714) CALCIUM (BEAKER) (test 8.9 mg/dL 8.4-10.2 iixt=822) EGFR (BEAKER) (test 45 mL/min/1.73 sq m ESTIMATED GFR IS NOT hqui=0066) ACCURATE CREATININE CLEARANCE IN PREDICTING GLOMERULAR FILTRATION RATE. ESTIMATED GFR IS NOT APPLICABLE FOR DIALYSIS PATIENTS. [id number] 03:27:00 Test Item Value Reference Range Comments PROCALCITONIN (BEAKER) (test kfgm=1213) 0.28 ng/mL <0.05 SEPSIS RISK (ng/mL)Low: 0.05-0.50Intermediate: 0.51-2.00High: & gt;=2.01LACTATE DEHYDROGENASE (LDH)2017-07-27 03:07:00 Test Item Value Reference Range Comments LACTATE DEHYDROGENASE (BEAKER) (test tlgi=999) 615 U/L 125-220 HEPATIC FUNCTION [id number] 03:07:00 Test Item Value Reference Range Comments TOTAL PROTEIN (BEAKER) (test ojus=270) 6.8 gm/dL 6.0-8.3 ALBUMIN (BEAKER) (test qzsd=6300) 3.2 g/dL 3.5-5.0 BILIRUBIN TOTAL (BEAKER) (test lhyb=653) 0.9 mg/dL 0.2-1.2 BILIRUBIN DIRECT (BEAKER) (test nvxb=228) 0.5 mg/dL 0.1-0.5 ALKALINE PHOSPHATASE (BEAKER) (test qwlv=734) 58 U/L 40-150 AST (SGOT) (BEAKER) (test hpaa=278) 21 U/L 5-34 ALT (SGPT) (BEAKER) (test radl=346) 15 U/L 6-55 CALCIUM, [id number] 02:57:00 Test Item Value Reference Range Comments CALCIUM IONIZED (BEAKER) (test oydm=182) 1.14 mmol/L 1.12-1.27 PH, BLOOD (BEAKER) (test kuxc=4649) 7.42 CBC W/PLT COUNT & AUTO [id number] 02:56:00 Test Item Value Reference Range Comments WHITE BLOOD CELL COUNT (BEAKER) (test nusc=683) 12.4 K/ L 3.5-10.5 RED BLOOD CELL COUNT (BEAKER) (test tmhz=038) 2.50 M/ L 3.93-5.22 HEMOGLOBIN (BEAKER) (test dssh=322) 7.4 GM/DL 11.2-15.7 HEMATOCRIT (BEAKER) (test grdn=608) 24.7 % 34.1-44.9 MEAN CORPUSCULAR VOLUME (BEAKER) (test ejay=274) 98.8 fL 79.4-94.8 MEAN CORPUSCULAR HEMOGLOBIN (BEAKER) (test 29.6 pg 25.6-32.2 xuye=062) MEAN CORPUSCULAR HEMOGLOBIN CONC (BEAKER) (test 30.0 GM/DL 32.2-35.5 sqck=614) RED CELL DISTRIBUTION WIDTH (BEAKER) (test 15.1 % 11.7-14.4 sood=362) PLATELET COUNT (BEAKER) (test npqk=570) 233 K/CU MM 150-450 MEAN PLATELET VOLUME (BEAKER) (test sqxx=884) 10.5 fL 9.4-12.3 NUCLEATED RED BLOOD CELLS (BEAKER) (test 0 /100 WBC 0-0 ilxo=443) NEUTROPHILS RELATIVE PERCENT (BEAKER) (test 80 % txad=179) LYMPHOCYTES RELATIVE PERCENT (BEAKER) (test 9 % yler=986) MONOCYTES RELATIVE PERCENT (BEAKER) (test 7 % ubdj=935) EOSINOPHILS RELATIVE PERCENT (BEAKER) (test 2 % gwxq=005) BASOPHILS RELATIVE PERCENT (BEAKER) (test 0 % xmis=954) NEUTROPHILS ABSOLUTE COUNT (BEAKER) (test 9.94 K/ L 1.56-6.13 wdzw=975) LYMPHOCYTES ABSOLUTE COUNT (BEAKER) (test 1.15 K/ L 1.18-3.74 vacg=711) MONOCYTES ABSOLUTE COUNT (BEAKER) (test 0.90 K/ L 0.24-0.36 alin=483) EOSINOPHILS ABSOLUTE COUNT (BEAKER) (test 0.24 K/ L 0.04-0.36 odbs=242) BASOPHILS ABSOLUTE COUNT (BEAKER) (test 0.05 K/ L 0.01-0.08 mxpr=122) IMMATURE GRANULOCYTES-RELATIVE PERCENT (BEAKER) 1 % 0-1 (test xesb=6562) [id number] 01:29:00 Test Item Value Reference Range Comments PHOSPHORUS (BEAKER) (test dipd=545) 3.5 mg/dL 2.3-4.7 BASIC METABOLIC [id number] 01:29:00 Test Item Value Reference Range Comments SODIUM (BEAKER) (test 145 meq/L 136-145 kghj=806) POTASSIUM (BEAKER) (test 3.4 meq/L 3.5-5.1 btgo=275) CHLORIDE (BEAKER) (test 107 meq/L 98-107 vigp=997) CO2 (BEAKER) (test 26 meq/L 22-29 panp=210) BLOOD UREA NITROGEN 21 mg/dL 7-21 (BEAKER) (test eqil=769) CREATININE (BEAKER) (test 1.47 mg/dL 0.57-1.25 esom=543) GLUCOSE RANDOM (BEAKER) 138 mg/dL 70-105 (test dsiz=205) CALCIUM (BEAKER) (test 9.1 mg/dL 8.4-10.2 vaxs=136) EGFR (BEAKER) (test 43 mL/min/1.73 sq m ESTIMATED GFR IS NOT rqwd=2669) ACCURATE CREATININE CLEARANCE IN PREDICTING GLOMERULAR FILTRATION RATE. ESTIMATED GFR IS NOT APPLICABLE FOR DIALYSIS PATIENTS. POCT-GLUCOSE [id number] 22:08:00 Test Item Value Reference Range Comments POC-GLUCOSE METER (BEAKER) 166 mg/dL 70-110 TESTED AT [facility] [address] [facility] (test jylx=2557) [facility] [address] [id number] 21:22:00 Test Item Value Reference Range Comments MAGNESIUM (BEAKER) (test ewvn=969) 2.2 mg/dL 1.6-2.6 [id number] 19:23:00 Test Item Value Reference Range Comments PHOSPHORUS (BEAKER) (test eies=300) 2.9 mg/dL 2.3-4.7 BASIC METABOLIC [id number] 19:23:00 Test Item Value Reference Range Comments SODIUM (BEAKER) (test 145 meq/L 136-145 bmau=392) POTASSIUM (BEAKER) (test 3.6 meq/L 3.5-5.1 jput=963) CHLORIDE (BEAKER) (test 109 meq/L 98-107 swvw=471) CO2 (BEAKER) (test 24 meq/L 22-29 yrpx=694) BLOOD UREA NITROGEN 22 mg/dL 7-21 (BEAKER) (test xtwu=700) CREATININE (BEAKER) (test 1.48 mg/dL 0.57-1.25 gzng=223) GLUCOSE RANDOM (BEAKER) 150 mg/dL 70-105 (test vera=592) CALCIUM (BEAKER) (test 9.0 mg/dL 8.4-10.2 lsiq=257) EGFR (BEAKER) (test 42 mL/min/1.73 sq m ESTIMATED GFR IS NOT jsgc=1993) ACCURATE CREATININE CLEARANCE IN PREDICTING GLOMERULAR FILTRATION RATE. ESTIMATED GFR IS NOT APPLICABLE FOR DIALYSIS PATIENTS. POCT-GLUCOSE [id number] 18:13:00 Test Item Value Reference Range Comments POC-GLUCOSE METER (BEAKER) 188 mg/dL 70-110 TESTED AT [facility] [address] [facility] (test txjo=3196) [facility] [address] [id number] 13:12:00 Test Item Value Reference Range Comments PHOSPHORUS (BEAKER) (test igff=806) 2.7 mg/dL 2.3-4.7 BASIC METABOLIC [id number] 13:12:00 Test Item Value Reference Range Comments SODIUM (BEAKER) (test 144 meq/L 136-145 hsiq=091) POTASSIUM (BEAKER) (test 3.5 meq/L 3.5-5.1 ifbc=274) CHLORIDE (BEAKER) (test 108 meq/L 98-107 fldf=819) CO2 (BEAKER) (test 26 meq/L 22-29 pdud=613) BLOOD UREA NITROGEN 23 mg/dL 7-21 (BEAKER) (test uebd=914) CREATININE (BEAKER) (test 1.45 mg/dL 0.57-1.25 sskx=800) GLUCOSE RANDOM (BEAKER) 183 mg/dL 70-105 (test hhwe=186) CALCIUM (BEAKER) (test 8.5 mg/dL 8.4-10.2 yikq=364) EGFR (BEAKER) (test 43 mL/min/1.73 sq m ESTIMATED GFR IS NOT ugpr=3559) ACCURATE CREATININE CLEARANCE IN PREDICTING GLOMERULAR FILTRATION RATE. ESTIMATED GFR IS NOT APPLICABLE FOR DIALYSIS PATIENTS. POCT-GLUCOSE [id number] 12:07:00 Test Item Value Reference Range Comments POC-GLUCOSE METER (BEAKER) 203 mg/dL 70-110 TESTED AT [address] (test oyia=4930) [facility] [address] [id number] 09:50:00 Test Item Value Reference Range Comments MAGNESIUM (BEAKER) (test ioeo=495) 2.6 mg/dL 1.6-2.6 RAD, CHEST, 1 VIEW, NON [id number] 08:06:00Reason for exam:->acute respiratory insufficiencyShould this be [...] MDReport Verified Date/Time: 07/26/2017 08:06:19 Reading Location: [facility] Radiology Reading Room POCT-GLUCOSE [id number] 07:58:00 Test Item Value Reference Range Comments POC-GLUCOSE METER (BEAKER) 176 mg/dL 70-110 TESTED AT [address] (test ggdo=6956) [facility] [address] OXYGEN SATURATION, [id number] 05:23:00 Test Item Value Reference Range Comments O2 SATURATION (MEASURED) (BEAKER) (test uynl=4310) 64.5 % calibrationBLOOD GAS, [id number] 04:43:00 Test Item Value Reference Range Comments PH ARTERIAL (BEAKER) (test pmda=398) 7.44 7.35-7.45 PCO2 ARTERIAL (BEAKER) (test chif=716) 44 mmHg 35-45 PO2 ARTERIAL (BEAKER) (test eqif=984) 127 mmHg 80-90 O2 SATURATION ARTERIAL (BEAKER) (test thab=631) 98.6 % 96.0-97.0 HCO3 ARTERIAL (BEAKER) (test ujpd=092) 29 mmol/L 21-29 BASE EXCESS ARTERIAL (BEAKER) (test huio=235) 4.6 mmol/L -2.0-3.0 PATIENT TEMPERATURE (BEAKER) (test fime=5406) 37.3 C FIO2 (BEAKER) (test fdpa=6594) 100.0 % [id number] 04:31:00 Test Item Value Reference Range Comments PHOSPHORUS (BEAKER) (test xttj=829) 3.4 mg/dL 2.3-4.7 [id number] 04:31:00 Test Item Value Reference Range Comments MAGNESIUM (BEAKER) (test srmb=831) 2.2 mg/dL 1.6-2.6 BASIC METABOLIC [id number] 04:31:00 Test Item Value Reference Range Comments SODIUM (BEAKER) (test 146 meq/L 136-145 qqjz=297) POTASSIUM (BEAKER) (test 3.7 meq/L 3.5-5.1 zvvh=895) CHLORIDE (BEAKER) (test 108 meq/L 98-107 lbte=653) CO2 (BEAKER) (test 28 meq/L 22-29 ntix=310) BLOOD UREA NITROGEN 23 mg/dL 7-21 (BEAKER) (test lapj=096) CREATININE (BEAKER) (test 1.51 mg/dL 0.57-1.25 codg=893) GLUCOSE RANDOM (BEAKER) 151 mg/dL 70-105 (test ycar=317) CALCIUM (BEAKER) (test 9.4 mg/dL 8.4-10.2 lbfj=490) EGFR (BEAKER) (test 41 mL/min/1.73 sq m ESTIMATED GFR IS NOT ofbu=2652) ACCURATE CREATININE CLEARANCE IN PREDICTING GLOMERULAR FILTRATION RATE. ESTIMATED GFR IS NOT APPLICABLE FOR DIALYSIS PATIENTS. HEPATIC FUNCTION [id number] 04:31:00 Test Item Value Reference Range Comments TOTAL PROTEIN (BEAKER) (test uwdl=595) 6.6 gm/dL 6.0-8.3 ALBUMIN (BEAKER) (test kkur=9643) 3.2 g/dL 3.5-5.0 BILIRUBIN TOTAL (BEAKER) (test jrgq=920) 1.0 mg/dL 0.2-1.2 BILIRUBIN DIRECT (BEAKER) (test npzl=606) 0.5 mg/dL 0.1-0.5 ALKALINE PHOSPHATASE (BEAKER) (test zcoq=881) 60 U/L 40-150 AST (SGOT) (BEAKER) (test ackq=216) 25 U/L 5-34 ALT (SGPT) (BEAKER) (test gddg=700) 18 U/L 6-55 COMPREHENSIVE METABOLIC [id number] 04:31:00 Test Item Value Reference Range Comments TOTAL PROTEIN (BEAKER) 6.6 gm/dL 6.0-8.3 (test aeer=510) ALBUMIN (BEAKER) (test 3.2 g/dL 3.5-5.0 eytb=0038) ALKALINE PHOSPHATASE 60 U/L 40-150 (BEAKER) (test phos=679) BILIRUBIN TOTAL (BEAKER) 1.0 mg/dL 0.2-1.2 (test qtkz=132) SODIUM (BEAKER) (test 146 meq/L 136-145 coaa=866) POTASSIUM (BEAKER) (test 3.7 meq/L 3.5-5.1 wwlm=931) CHLORIDE (BEAKER) (test 108 meq/L 98-107 mcpx=147) CO2 (BEAKER) (test 28 meq/L 22-29 ndii=038) BLOOD UREA NITROGEN 23 mg/dL 7-21 (BEAKER) (test ezxj=888) CREATININE (BEAKER) (test 1.51 mg/dL 0.57-1.25 kmsk=004) GLUCOSE RANDOM (BEAKER) 151 mg/dL 70-105 (test zbdl=431) CALCIUM (BEAKER) (test 9.4 mg/dL 8.4-10.2 hliy=580) AST (SGOT) (BEAKER) (test 25 U/L 5-34 xthg=028) ALT (SGPT) (BEAKER) (test 18 U/L 6-55 tcws=210) EGFR (BEAKER) (test 41 mL/min/1.73 sq m ESTIMATED GFR IS NOT absj=4443) ACCURATE CREATININE CLEARANCE IN PREDICTING GLOMERULAR FILTRATION RATE. ESTIMATED GFR IS NOT APPLICABLE FOR DIALYSIS PATIENTS. LACTATE DEHYDROGENASE (LDH)2017-07-26 04:31:00 Test Item Value Reference Range Comments LACTATE DEHYDROGENASE (BEAKER) (test ltqm=964) 661 U/L 125-220 CALCIUM, [id number] 04:23:00 Test Item Value Reference Range Comments CALCIUM IONIZED (BEAKER) (test uakm=468) 1.15 mmol/L 1.12-1.27 PH, BLOOD (BEAKER) (test dode=6801) 7.47 CBC W/PLT COUNT & AUTO [id number] 04:20:00 Test Item Value Reference Range Comments WHITE BLOOD CELL COUNT (BEAKER) (test tmiy=547) 13.0 K/ L 3.5-10.5 RED BLOOD CELL COUNT (BEAKER) (test dwmp=960) 2.56 M/ L 3.93-5.22 HEMOGLOBIN (BEAKER) (test nqic=247) 7.6 GM/DL 11.2-15.7 HEMATOCRIT (BEAKER) (test vnav=646) 25.4 % 34.1-44.9 MEAN CORPUSCULAR VOLUME (BEAKER) (test qmzq=903) 99.2 fL 79.4-94.8 MEAN CORPUSCULAR HEMOGLOBIN (BEAKER) (test 29.7 pg 25.6-32.2 trzw=800) MEAN CORPUSCULAR HEMOGLOBIN CONC (BEAKER) (test 29.9 GM/DL 32.2-35.5 kecz=024) RED CELL DISTRIBUTION WIDTH (BEAKER) (test 15.0 % 11.7-14.4 elvl=567) PLATELET COUNT (BEAKER) (test owuf=245) 161 K/CU MM 150-450 MEAN PLATELET VOLUME (BEAKER) (test tvrl=121) 11.0 fL 9.4-12.3 NUCLEATED RED BLOOD CELLS (BEAKER) (test 0 /100 WBC 0-0 dcjr=018) NEUTROPHILS RELATIVE PERCENT (BEAKER) (test 79 % fugt=743) LYMPHOCYTES RELATIVE PERCENT (BEAKER) (test 10 % upjv=333) MONOCYTES RELATIVE PERCENT (BEAKER) (test 7 % ldqg=641) EOSINOPHILS RELATIVE PERCENT (BEAKER) (test 2 % dvxz=584) BASOPHILS RELATIVE PERCENT (BEAKER) (test 1 % kubt=837) NEUTROPHILS ABSOLUTE COUNT (BEAKER) (test 10.33 K/ L 1.56-6.13 vovo=501) LYMPHOCYTES ABSOLUTE COUNT (BEAKER) (test 1.35 K/ L 1.18-3.74 ivea=898) MONOCYTES ABSOLUTE COUNT (BEAKER) (test 0.96 K/ L 0.24-0.36 gcdl=622) EOSINOPHILS ABSOLUTE COUNT (BEAKER) (test 0.19 K/ L 0.04-0.36 flfe=943) BASOPHILS ABSOLUTE COUNT (BEAKER) (test 0.07 K/ L 0.01-0.08 zufs=681) IMMATURE GRANULOCYTES-RELATIVE PERCENT (BEAKER) 1 % 0-1 (test ynoj=0466) [id number] 21:19:00 Test Item Value Reference Range Comments PHOSPHORUS (BEAKER) (test murj=848) 4.4 mg/dL 2.3-4.7 [id number] 21:19:00 Test Item Value Reference Range Comments MAGNESIUM (BEAKER) (test ixni=730) 2.1 mg/dL 1.6-2.6 BASIC METABOLIC [id number] 21:19:00 Test Item Value Reference Range Comments SODIUM (BEAKER) (test 146 meq/L 136-145 sztq=136) POTASSIUM (BEAKER) (test 3.9 meq/L 3.5-5.1 nusy=774) CHLORIDE (BEAKER) (test 108 meq/L 98-107 ucrk=832) CO2 (BEAKER) (test 27 meq/L 22-29 bbzy=947) BLOOD UREA NITROGEN 24 mg/dL 7-21 (BEAKER) (test pllq=503) CREATININE (BEAKER) (test 1.64 mg/dL 0.57-1.25 jwcw=093) GLUCOSE RANDOM (BEAKER) 120 mg/dL 70-105 (test bxdh=791) CALCIUM (BEAKER) (test 9.5 mg/dL 8.4-10.2 ahaw=482) EGFR (BEAKER) (test 38 mL/min/1.73 sq m ESTIMATED GFR IS NOT hkdy=3118) ACCURATE CREATININE CLEARANCE IN PREDICTING GLOMERULAR FILTRATION RATE. ESTIMATED GFR IS NOT APPLICABLE FOR DIALYSIS PATIENTS. POCT-GLUCOSE [id number] 18:36:00 Test Item Value Reference Range Comments POC-GLUCOSE METER (BEAKER) 129 mg/dL 70-110 TESTED AT [facility] [address] [facility] (test yjcz=4422) [facility] [address] POCT-GLUCOSE [id number] 16:19:00 Test Item Value Reference Range Comments POC-GLUCOSE METER (BEAKER) 132 mg/dL 70-110 TESTED AT [place] [id number] [facility] (test apbo=0706) [facility] [address] [id number] 13:57:00 Test Item Value Reference Range Comments PHOSPHORUS (BEAKER) (test kbhq=261) 4.2 mg/dL 2.3-4.7 BASIC METABOLIC [id number] 13:57:00 Test Item Value Reference Range Comments SODIUM (BEAKER) (test 147 meq/L 136-145 ackk=628) POTASSIUM (BEAKER) (test 3.7 meq/L 3.5-5.1 jiuh=985) CHLORIDE (BEAKER) (test 110 meq/L 98-107 cocf=572) CO2 (BEAKER) (test 25 meq/L 22-29 bslk=193) BLOOD UREA NITROGEN 23 mg/dL 7-21 (BEAKER) (test pqka=530) CREATININE (BEAKER) (test 1.58 mg/dL 0.57-1.25 hnca=905) GLUCOSE RANDOM (BEAKER) 129 mg/dL 70-105 (test lcpj=605) CALCIUM (BEAKER) (test 9.2 mg/dL 8.4-10.2 qgvd=329) EGFR (BEAKER) (test 39 mL/min/1.73 sq m ESTIMATED GFR IS NOT uxdw=2844) ACCURATE CREATININE CLEARANCE IN PREDICTING GLOMERULAR FILTRATION RATE. ESTIMATED GFR IS NOT APPLICABLE FOR DIALYSIS PATIENTS. BLOOD GAS, [id number] 13:48:00 Test Item Value Reference Range Comments PH ARTERIAL (BEAKER) (test zndx=483) 7.42 7.35-7.45 PCO2 ARTERIAL (BEAKER) (test wvcq=865) 47 mmHg 35-45 PO2 ARTERIAL (BEAKER) (test ffhj=489) 202 mmHg 80-90 O2 SATURATION ARTERIAL (BEAKER) (test zqpu=977) 99.4 % 96.0-97.0 HCO3 ARTERIAL (BEAKER) (test kvfb=815) 29 mmol/L 21-29 BASE EXCESS ARTERIAL (BEAKER) (test rqrx=520) 4.4 mmol/L -2.0-3.0 PATIENT TEMPERATURE (BEAKER) (test bcmr=8161) 37.6 C FIO2 (BEAKER) (test ytdn=9116) 100.0 % POCT-GLUCOSE [id number] 13:31:00 Test Item Value Reference Range Comments POC-GLUCOSE METER (BEAKER) 128 mg/dL 70-110 TESTED AT [address] (test vtig=5549) [place] [id number] POCT-GLUCOSE [id number] 11:02:00 Test Item Value Reference Range Comments POC-GLUCOSE METER (BEAKER) 137 mg/dL 70-110 TESTED AT [address] (test jitd=1747) [facility] [address] POCT-GLUCOSE [id number] 11:02:00 Test Item Value Reference Range Comments POC-GLUCOSE METER (BEAKER) 141 mg/dL 70-110 TESTED AT [address] (test nohs=6174) [facility] [address] POCT-GLUCOSE [id number] 11:02:00 Test Item Value Reference Range Comments POC-GLUCOSE METER (BEAKER) 104 mg/dL 70-110 TESTED AT [address] (test xtut=7512) [facility] [address] BLOOD [id number] 11:00:00 Test Item Value Reference Range Comments CULTURE (BEAKER) (test hccw=3040) No growth in 5 days BLOOD [id number] 11:00:00 Test Item Value Reference Range Comments CULTURE (BEAKER) (test rdkr=6271) No growth in 5 days CBC W/PLT COUNT & AUTO [id number] 08:54:00 Test Item Value Reference Range Comments WHITE BLOOD CELL COUNT (BEAKER) (test gltv=921) 13.8 K/ L 3.5-10.5 RED BLOOD CELL COUNT (BEAKER) (test ippw=792) 2.54 M/ L 3.93-5.22 HEMOGLOBIN (BEAKER) (test dccv=587) 7.7 GM/DL 11.2-15.7 HEMATOCRIT (BEAKER) (test wtib=909) 25.2 % 34.1-44.9 MEAN CORPUSCULAR VOLUME (BEAKER) (test hqas=430) 99.2 fL 79.4-94.8 MEAN CORPUSCULAR HEMOGLOBIN (BEAKER) (test 30.3 pg 25.6-32.2 waoa=242) MEAN CORPUSCULAR HEMOGLOBIN CONC (BEAKER) (test 30.6 GM/DL 32.2-35.5 fuhn=335) RED CELL DISTRIBUTION WIDTH (BEAKER) (test 15.2 % 11.7-14.4 gjxn=493) PLATELET COUNT (BEAKER) (test ciuz=686) 127 K/CU MM 150-450 MEAN PLATELET VOLUME (BEAKER) (test brze=682) 10.6 fL 9.4-12.3 NUCLEATED RED BLOOD CELLS (BEAKER) (test 0 /100 WBC 0-0 iogz=896) NEUTROPHILS RELATIVE PERCENT (BEAKER) (test 81 % rfoa=830) LYMPHOCYTES RELATIVE PERCENT (BEAKER) (test 8 % goui=839) MONOCYTES RELATIVE PERCENT (BEAKER) (test 9 % oqwu=025) EOSINOPHILS RELATIVE PERCENT (BEAKER) (test 1 % juwd=840) BASOPHILS RELATIVE PERCENT (BEAKER) (test 0 % dgct=072) NEUTROPHILS ABSOLUTE COUNT (BEAKER) (test 11.11 K/ L 1.56-6.13 rjoo=268) LYMPHOCYTES ABSOLUTE COUNT (BEAKER) (test 1.14 K/ L 1.18-3.74 qqdm=595) MONOCYTES ABSOLUTE COUNT (BEAKER) (test 1.20 K/ L 0.24-0.36 vbjn=978) EOSINOPHILS ABSOLUTE COUNT (BEAKER) (test 0.15 K/ L 0.04-0.36 eixj=052) BASOPHILS ABSOLUTE COUNT (BEAKER) (test 0.04 K/ L 0.01-0.08 fjfl=612) IMMATURE GRANULOCYTES-RELATIVE PERCENT (BEAKER) 1 % 0-1 (test gemd=3718) BLOOD GAS, [id number] 08:40:00 Test Item Value Reference Range Comments PH ARTERIAL (BEAKER) (test odns=043) 7.43 7.35-7.45 PCO2 ARTERIAL (BEAKER) (test zwdh=078) 35 mmHg 35-45 PO2 ARTERIAL (BEAKER) (test euil=617) 82 mmHg 80-90 O2 SATURATION ARTERIAL (BEAKER) (test ngww=243) 95.7 % 96.0-97.0 HCO3 ARTERIAL (BEAKER) (test omzb=480) 22 mmol/L 21-29 BASE EXCESS ARTERIAL (BEAKER) (test gglw=080) -1.3 mmol/L -2.0-3.0 PATIENT TEMPERATURE (BEAKER) (test cmvu=7042) 38.3 C FIO2 (BEAKER) (test ekjf=0990) 40.0 % [id number] 06:59:00 Test Item Value Reference Range Comments PHOSPHORUS (BEAKER) (test trsl=205) 3.4 mg/dL 2.3-4.7 [id number] 06:59:00 Test Item Value Reference Range Comments MAGNESIUM (BEAKER) (test ozdv=251) 2.0 mg/dL 1.6-2.6 BASIC METABOLIC [id number] 06:59:00 Test Item Value Reference Range Comments SODIUM (BEAKER) (test 147 meq/L 136-145 musy=505) POTASSIUM (BEAKER) (test 3.7 meq/L 3.5-5.1 nlpp=760) CHLORIDE (BEAKER) (test 111 meq/L 98-107 rohg=270) CO2 (BEAKER) (test 23 meq/L 22-29 rklw=932) BLOOD UREA NITROGEN 24 mg/dL 7-21 (BEAKER) (test apdw=893) CREATININE (BEAKER) (test 1.57 mg/dL 0.57-1.25 pzoj=916) GLUCOSE RANDOM (BEAKER) 121 mg/dL 70-105 (test wggt=130) CALCIUM (BEAKER) (test 9.0 mg/dL 8.4-10.2 pufj=946) EGFR (BEAKER) (test 39 mL/min/1.73 sq m ESTIMATED GFR IS NOT ofgw=5508) ACCURATE CREATININE CLEARANCE IN PREDICTING GLOMERULAR FILTRATION RATE. ESTIMATED GFR IS NOT APPLICABLE FOR DIALYSIS PATIENTS. POCT-GLUCOSE [id number] 06:27:00 Test Item Value Reference Range Comments POC-GLUCOSE METER (BEAKER) 95 mg/dL 70-110 TESTED AT [address] (test xrle=3597) [facility] [address] POCT-GLUCOSE [id number] 06:04:00 Test Item Value Reference Range Comments POC-GLUCOSE METER (BEAKER) 128 mg/dL 70-110 TESTED AT [facility] [address] (test wjpg=8418) [facility] [address] [id number] 05:36:00 Test Item Value Reference Range Comments PHOSPHORUS (BEAKER) (test icyt=527) 3.4 mg/dL 2.3-4.7 BASIC METABOLIC [id number] 05:36:00 Test Item Value Reference Range Comments SODIUM (BEAKER) (test 146 meq/L 136-145 ustt=334) POTASSIUM (BEAKER) (test 3.6 meq/L 3.5-5.1 cfep=834) CHLORIDE (BEAKER) (test 110 meq/L 98-107 slul=179) CO2 (BEAKER) (test 25 meq/L 22-29 srac=227) BLOOD UREA NITROGEN 25 mg/dL 7-21 (BEAKER) (test kgak=328) CREATININE (BEAKER) (test 1.58 mg/dL 0.57-1.25 objv=896) GLUCOSE RANDOM (BEAKER) 114 mg/dL 70-105 (test tjnu=761) CALCIUM (BEAKER) (test 8.9 mg/dL 8.4-10.2 fmuf=561) EGFR (BEAKER) (test 39 mL/min/1.73 sq m ESTIMATED GFR IS NOT vxqs=8943) ACCURATE CREATININE CLEARANCE IN PREDICTING GLOMERULAR FILTRATION RATE. ESTIMATED GFR IS NOT APPLICABLE FOR DIALYSIS PATIENTS. HEPATIC FUNCTION [id number] 05:36:00 Test Item Value Reference Range Comments TOTAL PROTEIN (BEAKER) (test yeut=487) 6.3 gm/dL 6.0-8.3 ALBUMIN (BEAKER) (test dwej=1780) 3.1 g/dL 3.5-5.0 BILIRUBIN TOTAL (BEAKER) (test liav=388) 1.1 mg/dL 0.2-1.2 BILIRUBIN DIRECT (BEAKER) (test qyue=314) 0.7 mg/dL 0.1-0.5 ALKALINE PHOSPHATASE (BEAKER) (test knvl=861) 54 U/L 40-150 AST (SGOT) (BEAKER) (test hiuk=781) 23 U/L 5-34 ALT (SGPT) (BEAKER) (test zfzs=116) 17 U/L 6-55 LACTATE DEHYDROGENASE (LDH)2017-07-25 05:36:00 Test Item Value Reference Range Comments LACTATE DEHYDROGENASE (BEAKER) (test hjfr=440) 695 U/L 125-220 POCT-GLUCOSE [id number] 05:24:00 Test Item Value Reference Range Comments POC-GLUCOSE METER (BEAKER) 102 mg/dL 70-110 TESTED AT [facility] [address] [facility] (test dgat=8483) [facility] [address] RAD, CHEST, 1 VIEW, NON [id number] 04:43:00Reason for exam:-> impellaShould this be performed at the bedside?->YesFINAL REPORT Chest one view. Clinical history: impella Comparison: Chest radiograph 07/24/17 Technique: A single frontal view of the chest was obtained. Findings: Cardiomediastinal contours are unchanged. Endotracheal and feeding tubes as well as a right IJ [place] catheter are unchanged in position. There are patchy bibasilar opacities which may represent atelectasis and/or pneumonia. There is mild elevation of the left hemidiaphragm. There is no definite pleural effusionor pneumothorax. Signed: Alexia Ram[facility]zn[facility] Verified Date/Time: 07/25/2017 04:43:27 ReadingLocation: [facility] B1 C013T Transitional Reading Room [id number] 00:51:00 Test Item Value Reference Range Comments PHOSPHORUS (BEAKER) (test vtnv=861) 3.4 mg/dL 2.3-4.7 BASIC METABOLIC [id number] 00:51:00 Test Item Value Reference Range Comments SODIUM (BEAKER) (test 146 meq/L 136-145 jtyf=746) POTASSIUM (BEAKER) (test 4.0 meq/L 3.5-5.1 yvwk=642) CHLORIDE (BEAKER) (test 110 meq/L 98-107 nxck=409) CO2 (BEAKER) (test 26 meq/L 22-29 jqpy=775) BLOOD UREA NITROGEN 26 mg/dL 7-21 (BEAKER) (test htui=247) CREATININE (BEAKER) (test 1.53 mg/dL 0.57-1.25 kvzc=011) GLUCOSE RANDOM (BEAKER) 105 mg/dL 70-105 (test bied=755) CALCIUM (BEAKER) (test 8.8 mg/dL 8.4-10.2 upwq=785) EGFR (BEAKER) (test 41 mL/min/1.73 sq m ESTIMATED GFR IS NOT pryv=5997) ACCURATE CREATININE CLEARANCE IN PREDICTING GLOMERULAR FILTRATION RATE. ESTIMATED GFR IS NOT APPLICABLE FOR DIALYSIS PATIENTS. POCT-GLUCOSE [id number] 00:32:00 Test Item Value Reference Range Comments POC-GLUCOSE METER (BEAKER) 119 mg/dL 70-110 TESTED AT [address] (test hbbl=1229) [place] [id number] POCT-GLUCOSE [id number] 00:27:00 Test Item Value Reference Range Comments POC-GLUCOSE METER (BEAKER) 114 mg/dL 70-110 TESTED AT [address] (test rwjs=1093) [place] [id number] POCT-GLUCOSE [id number] 23:58:00 Test Item Value Reference Range Comments POC-GLUCOSE METER (BEAKER) 117 mg/dL 70-110 TESTED AT [address] (test xjaz=2427) [place] [id number] 21:24:00 Test Item Value Reference Range Comments MAGNESIUM (BEAKER) (test bpyc=251) 2.0 mg/dL 1.6-2.6 POCT-GLUCOSE [id number] 20:24:00 Test Item Value Reference Range Comments POC-GLUCOSE METER (BEAKER) 130 mg/dL 70-110 TESTED AT [address] (test dtnx=7833) [place] [id number] 19:20:00 Test Item Value Reference Range Comments POTASSIUM (BEAKER) (test wvdw=146) 3.6 meq/L 3.5-5.1 [id number] 19:20:00 Test Item Value Reference Range Comments GLUCOSE RANDOM (BEAKER) (test djup=628) 168 mg/dL 70-105 [id number] 18:01:00 Test Item Value Reference Range Comments PHOSPHORUS (BEAKER) (test opzk=647) 3.7 mg/dL 2.3-4.7 BASIC METABOLIC [id number] 18:01:00 Test Item Value Reference Range Comments SODIUM (BEAKER) (test 145 meq/L 136-145 mntr=342) POTASSIUM (BEAKER) (test 3.9 meq/L 3.5-5.1 ktvz=244) CHLORIDE (BEAKER) (test 109 meq/L 98-107 bxam=013) CO2 (BEAKER) (test 27 meq/L 22-29 apcb=423) BLOOD UREA NITROGEN 26 mg/dL 7-21 (BEAKER) (test itzv=016) CREATININE (BEAKER) (test 1.47 mg/dL 0.57-1.25 juom=715) GLUCOSE RANDOM (BEAKER) 210 mg/dL 70-105 (test rppq=296) CALCIUM (BEAKER) (test 8.5 mg/dL 8.4-10.2 lwyg=281) EGFR (BEAKER) (test 43 mL/min/1.73 sq m ESTIMATED GFR IS NOT kxha=2416) ACCURATE CREATININE CLEARANCE IN PREDICTING GLOMERULAR FILTRATION RATE. ESTIMATED GFR IS NOT APPLICABLE FOR DIALYSIS PATIENTS. GLUCOSE-STAT [id number] 17:14:00 Test Item Value Reference Range Comments GLUCOSE RANDOM (BEAKER) (test ckbx=670) 208 mg/dL 70-110 BLOOD GAS, [id number] 17:13:00 Test Item Value Reference Range Comments PH ARTERIAL (BEAKER) (test hjvx=080) 7.44 7.35-7.45 PCO2 ARTERIAL (BEAKER) (test pazw=958) 43 mmHg 35-45 PO2 ARTERIAL (BEAKER) (test pjth=586) 58 mmHg 80-90 O2 SATURATION ARTERIAL (BEAKER) (test dblo=447) 90.8 % 96.0-97.0 HCO3 ARTERIAL (BEAKER) (test tuqg=895) 28 mmol/L 21-29 BASE EXCESS ARTERIAL (BEAKER) (test txex=581) 3.9 mmol/L -2.0-3.0 PATIENT TEMPERATURE (BEAKER) (test ijhn=6127) 37.0 C FIO2 (BEAKER) (test ghai=6083) 100.0 % RAD, CHEST, 1 VIEW, NON [id number] 14:00:00Reason for exam:->post intubationShould this be performed at the bedside?->YesFINAL REPORT AP chest. HISTORY: Endotracheal tube COMPARISON: 07/24/2017 IMPRESSION:Endotracheal tube projects deep in the trachea, approximately 1-2 cm above the level of the toro. Cardiomegaly similar to previous. Worsening aeration at the left lung base. Mild pulmonary vascular congestion. No pneumothorax. Signed: Mitchel Jarquin MDReport Verified Date/Time: 07/24/2017 14:00:17 Reading Location: [facility] B1 C013Y CT Body Reading Room [id number] 13:40:00 Test Item Value Reference Range Comments PHOSPHORUS (BEAKER) (test igyk=520) 4.3 mg/dL 2.3-4.7 [id number] 13:40:00 Test Item Value Reference Range Comments MAGNESIUM (BEAKER) (test asqv=468) 2.0 mg/dL 1.6-2.6 BASIC METABOLIC [id number] 13:40:00 Test Item Value Reference Range Comments SODIUM (BEAKER) (test 145 meq/L 136-145 bedl=334) POTASSIUM (BEAKER) (test 3.9 meq/L 3.5-5.1 qael=704) CHLORIDE (BEAKER) (test 108 meq/L 98-107 xymu=247) CO2 (BEAKER) (test 24 meq/L 22-29 heny=715) BLOOD UREA NITROGEN 28 mg/dL 7-21 (BEAKER) (test qour=378) CREATININE (BEAKER) (test 1.43 mg/dL 0.57-1.25 tgmf=419) GLUCOSE RANDOM (BEAKER) 206 mg/dL 70-105 (test okax=872) CALCIUM (BEAKER) (test 8.5 mg/dL 8.4-10.2 elpj=378) EGFR (BEAKER) (test 44 mL/min/1.73 sq m ESTIMATED GFR IS NOT tqqq=0136) ACCURATE CREATININE CLEARANCE IN PREDICTING GLOMERULAR FILTRATION RATE. ESTIMATED GFR IS NOT APPLICABLE FOR DIALYSIS PATIENTS. LACTIC ACID, ARTERIAL, WHOLE [id number] 13:36:00 Test Item Value Reference Range Comments LACTATE BLOOD ARTERIAL (2) (BEAKER) (test 0.7 mmol/L 0.5-2.2 amso=8545) Effective 08/06/2015: Units/Reference Range ChangeNew: 0.5-2.2 mmol/L Previous: 5 -20 mg/dLCBC W/PLT COUNT & AUTO [id number] 13:24:00 Test Item Value Reference Range Comments WHITE BLOOD CELL COUNT (BEAKER) (test eapj=447) 10.5 K/ L 3.5-10.5 RED BLOOD CELL COUNT (BEAKER) (test ktol=530) 2.70 M/ L 3.93-5.22 HEMOGLOBIN (BEAKER) (test udem=013) 8.1 GM/DL 11.2-15.7 HEMATOCRIT (BEAKER) (test vwes=231) 27.0 % 34.1-44.9 MEAN CORPUSCULAR VOLUME (BEAKER) (test dxlx=678) 100.0 fL 79.4-94.8 MEAN CORPUSCULAR HEMOGLOBIN (BEAKER) (test 30.0 pg 25.6-32.2 xzcj=875) MEAN CORPUSCULAR HEMOGLOBIN CONC (BEAKER) (test 30.0 GM/DL 32.2-35.5 ebjz=818) RED CELL DISTRIBUTION WIDTH (BEAKER) (test 14.9 % 11.7-14.4 lasb=214) PLATELET COUNT (BEAKER) (test mlkq=826) 117 K/CU MM 150-450 MEAN PLATELET VOLUME (BEAKER) (test uoxo=978) 10.9 fL 9.4-12.3 NUCLEATED RED BLOOD CELLS (BEAKER) (test 0 /100 WBC 0-0 feii=776) NEUTROPHILS RELATIVE PERCENT (BEAKER) (test 78 % kilp=734) LYMPHOCYTES RELATIVE PERCENT (BEAKER) (test 10 % rnen=025) MONOCYTES RELATIVE PERCENT (BEAKER) (test 10 % usvz=526) EOSINOPHILS RELATIVE PERCENT (BEAKER) (test 1 % mbpu=970) BASOPHILS RELATIVE PERCENT (BEAKER) (test 0 % lshr=073) NEUTROPHILS ABSOLUTE COUNT (BEAKER) (test 8.20 K/ L 1.56-6.13 tgco=257) LYMPHOCYTES ABSOLUTE COUNT (BEAKER) (test 1.00 K/ L 1.18-3.74 ypos=540) MONOCYTES ABSOLUTE COUNT (BEAKER) (test 1.06 K/ L 0.24-0.36 iupf=816) EOSINOPHILS ABSOLUTE COUNT (BEAKER) (test 0.09 K/ L 0.04-0.36 zqln=617) BASOPHILS ABSOLUTE COUNT (BEAKER) (test 0.04 K/ L 0.01-0.08 rrzl=730) IMMATURE GRANULOCYTES-RELATIVE PERCENT (BEAKER) 1 % 0-1 (test ngoa=2121) OXYGEN SATURATION, [id number] 13:08:00 Test Item Value Reference Range Comments O2 SATURATION (MEASURED) (BEAKER) (test ftao=4943) 65.1 % PA catheter tipBLOOD GAS, [id number] 13:08:00 Test Item Value Reference Range Comments PH ARTERIAL (BEAKER) (test dbxx=125) 7.42 7.35-7.45 PCO2 ARTERIAL (BEAKER) (test lsss=299) 42 mmHg 35-45 PO2 ARTERIAL (BEAKER) (test oekb=826) 239 mmHg 80-90 O2 SATURATION ARTERIAL (BEAKER) (test xkun=948) 99.6 % 96.0-97.0 HCO3 ARTERIAL (BEAKER) (test nrho=913) 27 mmol/L 21-29 BASE EXCESS ARTERIAL (BEAKER) (test ibvg=176) 2.1 mmol/L -2.0-3.0 PATIENT TEMPERATURE (BEAKER) (test qmvy=3566) 36.6 C FIO2 (BEAKER) (test qiza=7292) 100.0 % GLUCOSE-STAT [id number] 13:08:00 Test Item Value Reference Range Comments GLUCOSE RANDOM (BEAKER) (test mcrv=585) 194 mg/dL 70-110 HGB/HCT (H&H) - STAT [id number] 13:08:00 Test Item Value Reference Range Comments HEMOGLOBIN (BEAKER) (test cxbw=854) 8.8 g/dL 12.0-15.0 HEMATOCRIT (BEAKER) (test lrvd=035) 26.0 % 36.0-45.0 CALCIUM, [id number] 13:08:00 Test Item Value Reference Range Comments CALCIUM IONIZED (BEAKER) (test lmel=875) 1.08 mmol/L 1.12-1.27 PH, BLOOD (BEAKER) (test udgm=5071) 7.41 SODIUM NA-STAT [id number] 13:07:00 Test Item Value Reference Range Comments SODIUM (BEAKER) (test bxqi=222) 140 meq/L 135-148 POTASSIUM-STAT [id number] 13:07:00 Test Item Value Reference Range Comments POTASSIUM (BEAKER) (test zcxa=029) 3.7 meq/L 3.6-5.5 SODIUM NA-STAT [id number] 11:39:00 Test Item Value Reference Range Comments SODIUM (BEAKER) (test tfnj=224) 141 meq/L 135-148 POTASSIUM-STAT [id number] 11:39:00 Test Item Value Reference Range Comments POTASSIUM (BEAKER) (test rwqr=893) 3.6 meq/L 3.6-5.5 BLOOD GAS, [id number] 11:39:00 Test Item Value Reference Range Comments PH ARTERIAL (BEAKER) (test hhtk=387) 7.44 7.35-7.45 PCO2 ARTERIAL (BEAKER) (test lqxa=944) 42 mmHg 35-45 PO2 ARTERIAL (BEAKER) (test qpeb=290) 234 mmHg 80-90 O2 SATURATION ARTERIAL (BEAKER) (test sguv=284) 99.6 % 96.0-97.0 HCO3 ARTERIAL (BEAKER) (test kods=714) 28 mmol/L 21-29 BASE EXCESS ARTERIAL (BEAKER) (test ytgx=006) 3.4 mmol/L -2.0-3.0 PATIENT TEMPERATURE (BEAKER) (test jrgm=4227) 36.8 C FIO2 (BEAKER) (test rjws=9713) 86.0 % GLUCOSE-STAT [id number] 11:39:00 Test Item Value Reference Range Comments GLUCOSE RANDOM (BEAKER) (test aszc=985) 194 mg/dL 70-110 HGB/HCT (H&H) - STAT [id number] 11:39:00 Test Item Value Reference Range Comments HEMOGLOBIN (BEAKER) (test dbjt=267) 8.8 g/dL 12.0-15.0 HEMATOCRIT (BEAKER) (test foqa=570) 26.0 % 36.0-45.0 CALCIUM, [id number] 11:39:00 Test Item Value Reference Range Comments CALCIUM IONIZED (BEAKER) (test rftr=035) 1.06 mmol/L 1.12-1.27 PH, BLOOD (BEAKER) (test ijay=4969) 7.44 BLOOD GAS, [id number] 10:56:00 Test Item Value Reference Range Comments PH ARTERIAL (BEAKER) (test zvvp=929) 7.43 7.35-7.45 PCO2 ARTERIAL (BEAKER) (test ybwj=975) 46 mmHg 35-45 PO2 ARTERIAL (BEAKER) (test bsvg=364) 223 mmHg 80-90 O2 SATURATION ARTERIAL (BEAKER) (test gxso=878) 99.5 % 96.0-97.0 HCO3 ARTERIAL (BEAKER) (test ttli=501) 30 mmol/L 21-29 BASE EXCESS ARTERIAL (BEAKER) (test litc=333) 4.6 mmol/L -2.0-3.0 PATIENT TEMPERATURE (BEAKER) (test wlqa=3939) 37.0 C FIO2 (BEAKER) (test zvqe=9217) 100.0 % GLUCOSE-STAT [id number] 10:56:00 Test Item Value Reference Range Comments GLUCOSE RANDOM (BEAKER) (test fjji=728) 190 mg/dL 70-110 HGB/HCT (H&H) - STAT [id number] 10:56:00 Test Item Value Reference Range Comments HEMOGLOBIN (BEAKER) (test cgxn=960) 8.7 g/dL 12.0-15.0 HEMATOCRIT (BEAKER) (test fkvn=617) 26.0 % 36.0-45.0 SODIUM NA-STAT [id number] 10:55:00 Test Item Value Reference Range Comments SODIUM (BEAKER) (test maqt=762) 142 meq/L 135-148 POTASSIUM-STAT [id number] 10:55:00 Test Item Value Reference Range Comments POTASSIUM (BEAKER) (test uayt=122) 3.5 meq/L 3.6-5.5 [id number] 08:41:00 Test Item Value Reference Range Comments MAGNESIUM (BEAKER) (test vyoe=060) 2.0 mg/dL 1.6-2.6 BLOOD GAS, [id number] 07:57:00 Test Item Value Reference Range Comments PH ARTERIAL (BEAKER) (test xdel=573) 7.48 7.35-7.45 PCO2 ARTERIAL (BEAKER) (test yvnu=563) 37 mmHg 35-45 PO2 ARTERIAL (BEAKER) (test tdrv=308) 71 mmHg 80-90 O2 SATURATION ARTERIAL (BEAKER) (test zoua=709) 94.8 % 96.0-97.0 HCO3 ARTERIAL (BEAKER) (test mcok=165) 27 mmol/L 21-29 BASE EXCESS ARTERIAL (BEAKER) (test tluf=419) 3.5 mmol/L -2.0-3.0 PATIENT TEMPERATURE (BEAKER) (test pifp=1053) 37.8 C FIO2 (BEAKER) (test jmof=7034) 32.0 % POCT-GLUCOSE [id number] 07:50:00 Test Item Value Reference Range Comments POC-GLUCOSE METER (BEAKER) 246 mg/dL 70-110 TESTED AT [address] (test qzha=2244) [place] [address] RAD, CHEST, 1 VIEW, NON [id number] 04:54:00Reason for exam:-> impellaShould this be performed at the bedside?->YesFINAL REPORT CLINICAL INDICATION: Support lines. Comparison: 07/23/2017 The cardiomediastinal contours are stable. Central pulmonary vascular prominence and bilateral parenchymalopacities are similar to previous. There is no pneumothorax. Support lines are stable. Signed: Adelso Sorensen Verified Date/Time: 07/24/2017 04:54:08 Reading Location: [address] Reading Room POCT-GLUCOSE [id number] 04:08:00 Test Item Value Reference Range Comments POC-GLUCOSE METER (BEAKER) 137 mg/dL 70-110 TESTED AT [address] (test tmki=6982) [place] [address] [id number] 03:02:00 Test Item Value Reference Range Comments PHOSPHORUS (BEAKER) (test rctz=879) 3.7 mg/dL 2.3-4.7 [id number] 03:02:00 Test Item Value Reference Range Comments MAGNESIUM (BEAKER) (test zctc=264) 2.3 mg/dL 1.6-2.6 BASIC METABOLIC [id number] 03:02:00 Test Item Value Reference Range Comments SODIUM (BEAKER) (test 145 meq/L 136-145 askh=876) POTASSIUM (BEAKER) (test 4.0 meq/L 3.5-5.1 jlkc=762) CHLORIDE (BEAKER) (test 106 meq/L 98-107 epzl=728) CO2 (BEAKER) (test 26 meq/L 22-29 awow=937) BLOOD UREA NITROGEN 26 mg/dL 7-21 (BEAKER) (test scpw=814) CREATININE (BEAKER) (test 1.47 mg/dL 0.57-1.25 ytsd=737) GLUCOSE RANDOM (BEAKER) 141 mg/dL 70-105 (test mpqx=230) CALCIUM (BEAKER) (test 9.0 mg/dL 8.4-10.2 lrzq=746) EGFR (BEAKER) (test 43 mL/min/1.73 sq m ESTIMATED GFR IS NOT irnr=2540) ACCURATE CREATININE CLEARANCE IN PREDICTING GLOMERULAR FILTRATION RATE. ESTIMATED GFR IS NOT APPLICABLE FOR DIALYSIS PATIENTS. HEPATIC FUNCTION [id number] 03:02:00 Test Item Value Reference Range Comments TOTAL PROTEIN (BEAKER) (test rzez=133) 6.6 gm/dL 6.0-8.3 ALBUMIN (BEAKER) (test gvky=0411) 3.2 g/dL 3.5-5.0 BILIRUBIN TOTAL (BEAKER) (test qswj=921) 1.2 mg/dL 0.2-1.2 BILIRUBIN DIRECT (BEAKER) (test txjf=395) 0.6 mg/dL 0.1-0.5 ALKALINE PHOSPHATASE (BEAKER) (test mcik=235) 55 U/L 40-150 AST (SGOT) (BEAKER) (test vvyu=587) 33 U/L 5-34 ALT (SGPT) (BEAKER) (test tpnw=325) 25 U/L 6-55 LACTATE DEHYDROGENASE (LDH)2017-07-24 03:02:00 Test Item Value Reference Range Comments LACTATE DEHYDROGENASE (BEAKER) (test cxfn=731) 879 U/L 125-220 CBC W/PLT COUNT & AUTO [id number] 02:53:00 Test Item Value Reference Range Comments WHITE BLOOD CELL COUNT (BEAKER) (test vemo=634) 12.6 K/ L 3.5-10.5 RED BLOOD CELL COUNT (BEAKER) (test vbuc=783) 2.93 M/ L 3.93-5.22 HEMOGLOBIN (BEAKER) (test wrxl=498) 8.7 GM/DL 11.2-15.7 HEMATOCRIT (BEAKER) (test abjz=909) 28.3 % 34.1-44.9 MEAN CORPUSCULAR VOLUME (BEAKER) (test okrg=360) 96.6 fL 79.4-94.8 MEAN CORPUSCULAR HEMOGLOBIN (BEAKER) (test 29.7 pg 25.6-32.2 oqdr=766) MEAN CORPUSCULAR HEMOGLOBIN CONC (BEAKER) (test 30.7 GM/DL 32.2-35.5 oyaf=410) RED CELL DISTRIBUTION WIDTH (BEAKER) (test 14.7 % 11.7-14.4 pdxx=843) PLATELET COUNT (BEAKER) (test mjdb=752) 126 K/CU MM 150-450 MEAN PLATELET VOLUME (BEAKER) (test iyfe=223) 11.0 fL 9.4-12.3 NUCLEATED RED BLOOD CELLS (BEAKER) (test 0 /100 WBC 0-0 fxuf=100) NEUTROPHILS RELATIVE PERCENT (BEAKER) (test 78 % yhui=257) LYMPHOCYTES RELATIVE PERCENT (BEAKER) (test 10 % bgnk=497) MONOCYTES RELATIVE PERCENT (BEAKER) (test 10 % yzji=460) EOSINOPHILS RELATIVE PERCENT (BEAKER) (test 1 % jwnk=134) BASOPHILS RELATIVE PERCENT (BEAKER) (test 0 % jpyk=128) NEUTROPHILS ABSOLUTE COUNT (BEAKER) (test 9.85 K/ L 1.56-6.13 idhi=444) LYMPHOCYTES ABSOLUTE COUNT (BEAKER) (test 1.27 K/ L 1.18-3.74 omxy=640) MONOCYTES ABSOLUTE COUNT (BEAKER) (test 1.25 K/ L 0.24-0.36 xnfv=388) EOSINOPHILS ABSOLUTE COUNT (BEAKER) (test 0.10 K/ L 0.04-0.36 lnbk=614) BASOPHILS ABSOLUTE COUNT (BEAKER) (test 0.05 K/ L 0.01-0.08 wbjn=202) IMMATURE GRANULOCYTES-RELATIVE PERCENT (BEAKER) 1 % 0-1 (test zwla=0857) [id number] 02:50:00 Test Item Value Reference Range Comments PROTIME (BEAKER) (test ybsr=759) 16.7 seconds 11.7-14.7 INR (BEAKER) (test dzsb=541) 1.4 <=5.9 PARTIAL THROMBOPLASTIN TIME (BEAKER) (test 78.5 seconds 22.5-36.0 znkq=918) RECOMMENDED COUMADIN/WARFARIN INR THERAPY RANGESSTANDARD DOSE: 2.0 - 3.0 Includes: PROPHYLAXIS forvenous thrombosis, systemic embolization; TREATMENT for venous thrombosis and/or pulmonary embolus.HIGH RISK: Target INR is 2.5-3.5 for patients with mechanical heart valves.BLOOD [id number] 00:00:00 Test Item Value Reference Range Comments CULTURE (BEAKER) (test lapl=7906) No growth in 5 days BLOOD [id number] 00:00:00 Test Item Value Reference Range Comments CULTURE (BEAKER) (test xmjt=1975) No growth in 5 days [id number] 22:01:00 Test Item Value Reference Range Comments MAGNESIUM (BEAKER) (test rjnz=461) 2.0 mg/dL 1.6-2.6 POCT-GLUCOSE [id number] 19:39:00 Test Item Value Reference Range Comments POC-GLUCOSE METER (BEAKER) 135 mg/dL 70-110 TESTED AT [facility] [address] [place] [address] (test qvut=9161) [facility] [address] BASIC METABOLIC [id number] 19:08:00 Test Item Value Reference Range Comments SODIUM (BEAKER) (test 145 meq/L 136-145 rqyq=063) POTASSIUM (BEAKER) (test 3.9 meq/L 3.5-5.1 huzs=731) CHLORIDE (BEAKER) (test 106 meq/L 98-107 tada=529) CO2 (BEAKER) (test 28 meq/L 22-29 mitn=357) BLOOD UREA NITROGEN 26 mg/dL 7-21 (BEAKER) (test vylt=342) CREATININE (BEAKER) (test 1.45 mg/dL 0.57-1.25 uwos=038) GLUCOSE RANDOM (BEAKER) 119 mg/dL 70-105 (test qdob=560) CALCIUM (BEAKER) (test 9.2 mg/dL 8.4-10.2 ueim=296) EGFR (BEAKER) (test 43 mL/min/1.73 sq m ESTIMATED GFR IS NOT qquh=0322) ACCURATE CREATININE CLEARANCE IN PREDICTING GLOMERULAR FILTRATION RATE. ESTIMATED GFR IS NOT APPLICABLE FOR DIALYSIS PATIENTS. [id number] 19:06:00 Test Item Value Reference Range Comments PHOSPHORUS (BEAKER) (test tbqu=236) 3.7 mg/dL 2.3-4.7 VANCOMYCIN LEVEL, [id number] 16:33:00 Test Item Value Reference Range Comments VANCOMYCIN TROUGH (BEAKER) (test iazm=563) 17.8 ug/mL 10.0-20.0 If vancomycin trough level > 20 mcg/mL, hold next vancomycin dose, and contact MD and pharmacist.VARICELLA ZOSTER ANTIBODY, [id number] 14:47:00 Test Item Value Reference Range Comments VARICELLA ZOSTER IGG (AL) (BEAKER) (test eemm=8925) 2.3 Al VARICELLA ZOSTER RESULT INTERPRETATIONS: <=0.8 Al Nonreactive: Presumed non-immune to VZV 0.9-1.0 Al Equivocal >=1.1 Al Reactive: Presumed immune to VZVCYTOMEGALOVIRUS ANTIBODY, [id number] 14:46:00 Test Item Value Reference Range Comments CYTOMEGALOVIRUS IGG ANTIBODY (BEAKER) (test Negative uqyf=376) CYTOMEGALOVIRUS ANTIBODY, [id number] 14:46:00 Test Item Value Reference Range Comments CYTOMEGALOVIRUS IGM ANTIBODY (BEAKER) (test Negative ejrj=394) EBV-VCA ANTIBODY, [id number] 14:46:00 Test Item Value Reference Range Comments MARIO-CARMEN VCA IGG (BEAKER) (test cwzx=457) Positive EBV-VCA ANTIBODY, [id number] 14:46:00 Test Item Value Reference Range Comments MARIO-CARMEN VCA IGM (BEAKER) (test akgb=320) Negative HERPES VIRUS ANTIBODY, [id number] 14:45:00 Test Item Value Reference Range Comments HERPES VIRUS IGG (BEAKER) (test idhq=2603) Negative HSV IgG 1=NEGATIVEHSV IgG 2=NEGATIVETOXOPLASMA GONDII ANTIBODY, [id number] 14 :45:00 Test Item Value Reference Range Comments TOXOPLASMA GONDII IGG (BEAKER) (test iavg=371) Negative [id number] 14:37:00 Test Item Value Reference Range Comments PARTIAL THROMBOPLASTIN TIME (BEAKER) (test 69.5 seconds 22.5-36.0 klvo=320) OCCULT BLOOD, [id number] 14:34:00 Test Item Value Reference Range Comments FECAL OCCULT BLOOD (BEAKER) (test rhio=761) Negative Negative POCT-GLUCOSE [id number] 14:20:00 Test Item Value Reference Range Comments POC-GLUCOSE METER (BEAKER) 166 mg/dL 70-110 TESTED AT [place] [id number] [facility] (test fkbr=7964) [facility] [address] POCT-GLUCOSE [id number] 14:20:00 Test Item Value Reference Range Comments POC-GLUCOSE METER (BEAKER) 82 mg/dL 70-110 TESTED AT [address] (test wpxk=4584) [facility] [address] [id number] 13:00:00 Test Item Value Reference Range Comments PHOSPHORUS (BEAKER) (test qhsq=541) 3.2 mg/dL 2.3-4.7 BASIC METABOLIC [id number] 13:00:00 Test Item Value Reference Range Comments SODIUM (BEAKER) (test 143 meq/L 136-145 qdov=733) POTASSIUM (BEAKER) (test 3.8 meq/L 3.5-5.1 coce=409) CHLORIDE (BEAKER) (test 104 meq/L 98-107 yyvw=317) CO2 (BEAKER) (test 29 meq/L 22-29 qhmk=500) BLOOD UREA NITROGEN 28 mg/dL 7-21 (BEAKER) (test hfcd=898) CREATININE (BEAKER) (test 1.44 mg/dL 0.57-1.25 qsmb=494) GLUCOSE RANDOM (BEAKER) 171 mg/dL 70-105 (test gdwl=934) CALCIUM (BEAKER) (test 9.1 mg/dL 8.4-10.2 wgkv=219) EGFR (BEAKER) (test 44 mL/min/1.73 sq m ESTIMATED GFR IS NOT xpli=8535) ACCURATE CREATININE CLEARANCE IN PREDICTING GLOMERULAR FILTRATION RATE. ESTIMATED GFR IS NOT APPLICABLE FOR DIALYSIS PATIENTS. POCT-GLUCOSE [id number] 12:29:00 Test Item Value Reference Range Comments POC-GLUCOSE METER (BEAKER) 179 mg/dL 70-110 TESTED AT [address] (test dsvn=8191) [facility] [address] CREATININE [id number] 11:15:00 Test Item Value Reference Range Comments CREATININE CLEARANCE (BEAKER) 45.8 mL/min 70.0-140.0 (test fxsn=179) VOLUME, TOTAL (BEAKER) (test 3400 ml inke=4526) CREATININE URINE (BEAKER) (test 36.8 mg/dL xrwr=555) [id number] (BEAKER) Анна Encarnacion MD (test mpoa=7879) (electronic signature) PATIENT HEIGHT (CM) (BEAKER) 165.1 cm (test epwb=9667) PATIENT WEIGHT (KG) (BEAKER) 84.100 kg (test lyij=2961) [id number] 09:15:00 Test Item Value Reference Range Comments POTASSIUM (BEAKER) (test vopy=623) 4.1 meq/L 3.5-5.1 PRN - repeat potassium levels every 1 hour until glucose level is less than 450 mg/[id number] 09:15:00 Test Item Value Reference Range Comments MAGNESIUM (BEAKER) (test adkg=025) 2.4 mg/dL 1.6-2.6 PRN - repeat potassium levels every 1 hour until glucose level is less than 450 mg/dLPOCT-GLUCOSE [id number] 08:47:00 Test Item Value Reference Range Comments POC-GLUCOSE METER (BEAKER) 155 mg/dL 70-110 TESTED AT [address] (test dpmt=6547) [facility] [address] POCT-GLUCOSE [id number] 06:12:00 Test Item Value Reference Range Comments POC-GLUCOSE METER (BEAKER) 143 mg/dL 70-110 TESTED AT [address] (test tlzt=5716) [facility] [address] POCT-GLUCOSE [id number] 06:12:00 Test Item Value Reference Range Comments POC-GLUCOSE METER (BEAKER) 123 mg/dL 70-110 TESTED AT [address] (test ahwb=4519) [facility] [address] RAD, CHEST, 1 VIEW, NON [id number] 05:36:00Reason for exam:->respiratory insufficiencyFINAL REPORT Chest one view. Clinical history: respiratory insufficiency Comparison: Chest radiograph 07/22/2017 Technique: A single frontal view of the chest was obtained. Findings: Cardiomediastinal contours are unchanged. There is a right IJ [place]-Jagdeep catheter, with tip inthe right pulmonary artery. [...] Ramirez Verified Date/Time: 07/23/2017 05:36:35 Reading Location: [address] Reading Room CALCIUM, [id number] 05:19:00 Test Item Value Reference Range Comments CALCIUM IONIZED (BEAKER) (test iwdg=122) 1.12 mmol/L 1.12-1.27 PH, BLOOD (BEAKER) (test bsis=7272) 7.40 OXYGEN SATURATION, [id number] 05:18:00 Test Item Value Reference Range Comments O2 SATURATION (MEASURED) (BEAKER) (test byqq=2356) 63.1 % POCT-GLUCOSE [id number] 05:05:00 Test Item Value Reference Range Comments POC-GLUCOSE METER (BEAKER) 131 mg/dL 70-110 TESTED AT [facility] [address] [facility] (test hygv=5197) [facility] [address] BLOOD GAS, [id number] 04:58:00 Test Item Value Reference Range Comments PH ARTERIAL (BEAKER) (test wuvy=879) 7.41 7.35-7.45 PCO2 ARTERIAL (BEAKER) (test ccuv=392) 51 mmHg 35-45 PO2 ARTERIAL (BEAKER) (test nery=654) 93 mmHg 80-90 O2 SATURATION ARTERIAL (BEAKER) (test jldy=567) 96.9 % 96.0-97.0 HCO3 ARTERIAL (BEAKER) (test oqzr=054) 31 mmol/L 21-29 BASE EXCESS ARTERIAL (BEAKER) (test cgyc=167) 5.9 mmol/L -2.0-3.0 PATIENT TEMPERATURE (BEAKER) (test nhbd=2438) 37.4 C FIO2 (BEAKER) (test rlfz=6251) 70.0 % [id number] 03:35:00 Test Item Value Reference Range Comments PARTIAL THROMBOPLASTIN TIME (BEAKER) (test 70.8 seconds 22.5-36.0 xrfs=079) [id number] 03:34:00 Test Item Value Reference Range Comments PHOSPHORUS (BEAKER) (test xmbm=125) 3.0 mg/dL 2.3-4.7 [id number] 03:34:00 Test Item Value Reference Range Comments MAGNESIUM (BEAKER) (test wjsc=873) 2.1 mg/dL 1.6-2.6 BASIC METABOLIC [id number] 03:34:00 Test Item Value Reference Range Comments SODIUM (BEAKER) (test 144 meq/L 136-145 utcw=532) POTASSIUM (BEAKER) (test 3.9 meq/L 3.5-5.1 vond=618) CHLORIDE (BEAKER) (test 105 meq/L 98-107 ckjp=998) CO2 (BEAKER) (test 29 meq/L 22-29 kopf=359) BLOOD UREA NITROGEN 29 mg/dL 7-21 (BEAKER) (test piap=455) CREATININE (BEAKER) (test 1.54 mg/dL 0.57-1.25 lywz=781) GLUCOSE RANDOM (BEAKER) 119 mg/dL 70-105 (test xqgy=479) CALCIUM (BEAKER) (test 9.1 mg/dL 8.4-10.2 wmig=311) EGFR (BEAKER) (test 40 mL/min/1.73 sq m ESTIMATED GFR IS NOT opjr=1382) ACCURATE CREATININE CLEARANCE IN PREDICTING GLOMERULAR FILTRATION RATE. ESTIMATED GFR IS NOT APPLICABLE FOR DIALYSIS PATIENTS. HEPATIC FUNCTION [id number] 03:34:00 Test Item Value Reference Range Comments TOTAL PROTEIN (BEAKER) (test jvhq=749) 6.7 gm/dL 6.0-8.3 ALBUMIN (BEAKER) (test zave=4299) 3.3 g/dL 3.5-5.0 BILIRUBIN TOTAL (BEAKER) (test lsml=658) 1.2 mg/dL 0.2-1.2 BILIRUBIN DIRECT (BEAKER) (test ztlr=339) 0.6 mg/dL 0.1-0.5 ALKALINE PHOSPHATASE (BEAKER) (test lonf=069) 51 U/L 40-150 AST (SGOT) (BEAKER) (test fyyf=309) 48 U/L 5-34 ALT (SGPT) (BEAKER) (test arnp=301) 29 U/L 6-55 LACTATE DEHYDROGENASE (LDH)2017-07-23 03:34:00 Test Item Value Reference Range Comments LACTATE DEHYDROGENASE (BEAKER) (test idbw=689) 1020 U/L 125-220 CBC W/PLT COUNT & AUTO [id number] 03:25:00 Test Item Value Reference Range Comments WHITE BLOOD CELL COUNT (BEAKER) (test odzb=010) 11.7 K/ L 3.5-10.5 RED BLOOD CELL COUNT (BEAKER) (test fful=325) 3.01 M/ L 3.93-5.22 HEMOGLOBIN (BEAKER) (test uqhd=481) 9.0 GM/DL 11.2-15.7 HEMATOCRIT (BEAKER) (test wmjv=938) 28.9 % 34.1-44.9 MEAN CORPUSCULAR VOLUME (BEAKER) (test hime=941) 96.0 fL 79.4-94.8 MEAN CORPUSCULAR HEMOGLOBIN (BEAKER) (test 29.9 pg 25.6-32.2 rkow=203) MEAN CORPUSCULAR HEMOGLOBIN CONC (BEAKER) (test 31.1 GM/DL 32.2-35.5 rfxi=418) RED CELL DISTRIBUTION WIDTH (BEAKER) (test 15.0 % 11.7-14.4 uoav=720) PLATELET COUNT (BEAKER) (test tgpk=948) 128 K/CU MM 150-450 MEAN PLATELET VOLUME (BEAKER) (test mupt=450) 11.3 fL 9.4-12.3 NUCLEATED RED BLOOD CELLS (BEAKER) (test 0 /100 WBC 0-0 hihr=780) NEUTROPHILS RELATIVE PERCENT (BEAKER) (test 78 % hltq=063) LYMPHOCYTES RELATIVE PERCENT (BEAKER) (test 11 % hlrh=774) MONOCYTES RELATIVE PERCENT (BEAKER) (test 10 % qspo=999) EOSINOPHILS RELATIVE PERCENT (BEAKER) (test 1 % ibrw=006) BASOPHILS RELATIVE PERCENT (BEAKER) (test 0 % kdwi=232) NEUTROPHILS ABSOLUTE COUNT (BEAKER) (test 9.07 K/ L 1.56-6.13 zwiu=104) LYMPHOCYTES ABSOLUTE COUNT (BEAKER) (test 1.25 K/ L 1.18-3.74 opgx=659) MONOCYTES ABSOLUTE COUNT (BEAKER) (test 1.12 K/ L 0.24-0.36 rsfl=164) EOSINOPHILS ABSOLUTE COUNT (BEAKER) (test 0.12 K/ L 0.04-0.36 vuqc=029) BASOPHILS ABSOLUTE COUNT (BEAKER) (test 0.05 K/ L 0.01-0.08 grfs=423) IMMATURE GRANULOCYTES-RELATIVE PERCENT (BEAKER) 1 % 0-1 (test yayu=1032) POCT-GLUCOSE [id number] 03:09:00 Test Item Value Reference Range Comments POC-GLUCOSE METER (BEAKER) 114 mg/dL 70-110 TESTED AT [address] (test jffs=7058) [place] [address] POCT-GLUCOSE [id number] 03:09:00 Test Item Value Reference Range Comments POC-GLUCOSE METER (BEAKER) 122 mg/dL 70-110 TESTED AT [address] (test tscj=2673) [place] [id number] BASIC METABOLIC [id number] 00:32:00 Test Item Value Reference Range Comments SODIUM (BEAKER) (test 144 meq/L 136-145 hwpw=034) POTASSIUM (BEAKER) (test 4.2 meq/L 3.5-5.1 cczb=874) CHLORIDE (BEAKER) (test 105 meq/L 98-107 ulmd=724) CO2 (BEAKER) (test 28 meq/L 22-29 htwq=631) BLOOD UREA NITROGEN 30 mg/dL 7-21 (BEAKER) (test jnlq=688) CREATININE (BEAKER) (test 1.56 mg/dL 0.57-1.25 mdbk=675) GLUCOSE RANDOM (BEAKER) 131 mg/dL 70-105 (test ijrn=211) CALCIUM (BEAKER) (test 9.0 mg/dL 8.4-10.2 yqke=261) EGFR (BEAKER) (test 40 mL/min/1.73 sq m ESTIMATED GFR IS NOT wrbr=0368) ACCURATE CREATININE CLEARANCE IN PREDICTING GLOMERULAR FILTRATION RATE. ESTIMATED GFR IS NOT APPLICABLE FOR DIALYSIS PATIENTS. [id number] 00:31:00 Test Item Value Reference Range Comments PHOSPHORUS (BEAKER) (test oslr=339) 3.4 mg/dL 2.3-4.7 POCT-GLUCOSE [id number] 00:10:00 Test Item Value Reference Range Comments POC-GLUCOSE METER (BEAKER) 140 mg/dL 70-110 TESTED AT [address] (test sgnl=3390) [facility] [address] POCT-GLUCOSE [id number] 00:08:00 Test Item Value Reference Range Comments POC-GLUCOSE METER (BEAKER) 121 mg/dL 70-110 TESTED AT [address] (test ibtd=9931) [facility] [address] POCT-GLUCOSE [id number] 00:08:00 Test Item Value Reference Range Comments POC-GLUCOSE METER (BEAKER) 112 mg/dL 70-110 TESTED AT [address] (test bnvs=1069) [facility] [address] POCT-GLUCOSE [id number] 00:08:00 Test Item Value Reference Range Comments POC-GLUCOSE METER (BEAKER) 84 mg/dL 70-110 TESTED AT [address] (test noxe=0508) [facility] [address] BASIC METABOLIC [id number] 20:36:00 Test Item Value Reference Range Comments SODIUM (BEAKER) (test 145 meq/L 136-145 ccqw=079) POTASSIUM (BEAKER) (test 3.6 meq/L 3.5-5.1 eyxo=002) CHLORIDE (BEAKER) (test 106 meq/L 98-107 mpbc=088) CO2 (BEAKER) (test 31 meq/L 22-29 khpd=980) BLOOD UREA NITROGEN 32 mg/dL 7-21 (BEAKER) (test nxky=175) CREATININE (BEAKER) (test 1.56 mg/dL 0.57-1.25 njnv=429) GLUCOSE RANDOM (BEAKER) 85 mg/dL 70-105 (test fvwg=443) CALCIUM (BEAKER) (test 9.0 mg/dL 8.4-10.2 qqne=383) EGFR (BEAKER) (test 40 mL/min/1.73 sq m ESTIMATED GFR IS NOT qpuy=7403) ACCURATE CREATININE CLEARANCE IN PREDICTING GLOMERULAR FILTRATION RATE. ESTIMATED GFR IS NOT APPLICABLE FOR DIALYSIS PATIENTS. [id number] 20:36:00 Test Item Value Reference Range Comments MAGNESIUM (BEAKER) (test uiqx=998) 2.4 mg/dL 1.6-2.6 [id number] 18:26:00 Test Item Value Reference Range Comments PHOSPHORUS (BEAKER) (test scyk=862) 2.4 mg/dL 2.3-4.7 BASIC METABOLIC [id number] 18:26:00 Test Item Value Reference Range Comments SODIUM (BEAKER) (test 144 meq/L 136-145 xqvu=819) POTASSIUM (BEAKER) (test 3.9 meq/L 3.5-5.1 joni=569) CHLORIDE (BEAKER) (test 106 meq/L 98-107 ayyy=359) CO2 (BEAKER) (test 30 meq/L 22-29 aifr=874) BLOOD UREA NITROGEN 32 mg/dL 7-21 (BEAKER) (test ptxr=683) CREATININE (BEAKER) (test 1.67 mg/dL 0.57-1.25 gjff=963) GLUCOSE RANDOM (BEAKER) 141 mg/dL 70-105 (test jzjc=490) CALCIUM (BEAKER) (test 9.1 mg/dL 8.4-10.2 whuy=472) EGFR (BEAKER) (test 37 mL/min/1.73 sq m ESTIMATED GFR IS NOT vpfp=4361) ACCURATE CREATININE CLEARANCE IN PREDICTING GLOMERULAR FILTRATION RATE. ESTIMATED GFR IS NOT APPLICABLE FOR DIALYSIS PATIENTS. LACTIC ACID, ARTERIAL, WHOLE [id number] 18:22:00 Test Item Value Reference Range Comments LACTATE BLOOD ARTERIAL (2) (BEAKER) (test 1.0 mmol/L 0.5-2.2 dvys=1226) Effective 08/06/2015: Units/Reference Range ChangeNew: 0.5-2.2 mmol/L Previous: 5 -20 mg/dLPOCT-GLUCOSE [id number] 17:56:00 Test Item Value Reference Range Comments POC-GLUCOSE METER (BEAKER) 138 mg/dL 70-110 TESTED AT [address] (test zqrb=6971) [facility] [address] [id number] 16:19:00 Test Item Value Reference Range Comments POTASSIUM (BEAKER) (test zudn=455) 3.8 meq/L 3.5-5.1 PRN - repeat potassium levels every 1 hour until glucose level is less than 450 mg/[id number] 16:06:00 Test Item Value Reference Range Comments PARTIAL THROMBOPLASTIN TIME (BEAKER) (test 71.3 seconds 22.5-36.0 uttq=330) OXYGEN SATURATION, [id number] 15:58:00 Test Item Value Reference Range Comments O2 SATURATION (MEASURED) (BEAKER) (test hwab=7344) 58.6 % calibrationPOCT-GLUCOSE [id number] 15:51:00 Test Item Value Reference Range Comments POC-GLUCOSE METER ([facility]) 147 mg/dL 70-110 TESTED AT [address] (test uuod=8722) [facility] [address] RAD, CHEST, 1 VIEW, NON [id number] 14:57:00Reason for exam:->s/p CVC placement Should this be performed at the bedside?->YesFINAL REPORT TECHNIQUE: Frontal chest radiograph dated 07/22/2017. CLINICAL HISTORY: CVC placement COMPARISON STUDY: Chest radiograph performed earlier the same day. IMPRESSION:There has been interval placement of a right-sided [place]- Jagdeep catheter with the tip in the main pulmonary artery. Impella device is unchanged in appearance. There is left lung base atelectasis. No pleural effusion or pneumothorax. Cardiomediastinal silhouette is normal in size. No pulmonary edema. Bonesare osteopenic. No fracture. Signed: Dawson Noeleport Verified Date/Time: 07/22/2017 14:57:48 Reading Location: [facility] Radiology Reading Room PROTEIN ELECTROPHORESIS, [id number] 14:45:00 Test Item Value Reference Range Comments ALBUMIN FRACTION (BEAKER) 3.0 g/dL 3.5-5.5 (test zjfj=631) ALPHA 1 FRACTION (BEAKER) 0.4 g/dL 0.2-0.4 (test rdjz=265) ALPHA 2 FRACTION (BEAKER) 0.5 g/dL 0.5-0.9 (test gvbe=469) BETA FRACTION (BEAKER) (test 1.0 g/dL 0.6-1.1 mfjg=169) GAMMA GLOBULIN FRACTION 1.2 g/dL 0.7-1.7 (BEAKER) (test vnjh=196) INTERPRETATION-119 (BEAKER) Albumin decreased. Alpha (test tmty=7935) globulin percentages increased. This suggests an acute phase response. [id number]-085 (BEAKER) Анна Encarnacion MD (electronic (test hfkr=7440) signature) PROTEIN TOTAL SERUM, SPEP 6.1 gm/dL 6.0-8.3 (BEAKER) (test ievk=5383) POCT-GLUCOSE [id number] 14:34:00 Test Item Value Reference Range Comments POC-GLUCOSE METER (BEAKER) 137 mg/dL 70-110 TESTED AT [facility] [address] [facility] (test nttc=4273) [facility] [address] ANTI-NUCLEAR ANTIBODY (ROSLYN)2017-07-22 13:24:00 Test Item Value Reference Range Comments ANTI-NUCLEAR ANTIBODY (ROSLYN) (BEAKER) (test Positive Negative nbqy=916) ROSLYN TITER AND [id number] 13:24:00 Test Item Value Reference Range Comments ROSLYN TITER (BEAKER) (test xejd=2763) :640 ROSLYN PATTERN (BEAKER) (test dceo=8081) Homogeneous [id number] 12:50:00 Test Item Value Reference Range Comments PHOSPHORUS (BEAKER) (test vpat=938) 2.5 mg/dL 2.3-4.7 BASIC METABOLIC [id number] 12:50:00 Test Item Value Reference Range Comments SODIUM (BEAKER) (test 145 meq/L 136-145 lcxt=010) POTASSIUM (BEAKER) (test 3.6 meq/L 3.5-5.1 tkfv=694) CHLORIDE (BEAKER) (test 107 meq/L 98-107 sioi=249) CO2 (BEAKER) (test 30 meq/L 22-29 yffx=954) BLOOD UREA NITROGEN 37 mg/dL 7-21 (BEAKER) (test iepq=551) CREATININE (BEAKER) (test 1.69 mg/dL 0.57-1.25 igtg=921) GLUCOSE RANDOM (BEAKER) 154 mg/dL 70-105 (test ebbs=387) CALCIUM (BEAKER) (test 8.9 mg/dL 8.4-10.2 pkgs=352) EGFR (BEAKER) (test 36 mL/min/1.73 sq m ESTIMATED GFR IS NOT wrwm=4415) ACCURATE CREATININE CLEARANCE IN PREDICTING GLOMERULAR FILTRATION RATE. ESTIMATED GFR IS NOT APPLICABLE FOR DIALYSIS PATIENTS. BLOOD GAS, [id number] 12:36:00 Test Item Value Reference Range Comments PH ARTERIAL (BEAKER) (test aedh=495) 7.48 7.35-7.45 PCO2 ARTERIAL (BEAKER) (test ljjm=148) 44 mmHg 35-45 PO2 ARTERIAL (BEAKER) (test onzg=921) 156 mmHg 80-90 O2 SATURATION ARTERIAL (BEAKER) (test ypio=815) 99.1 % 96.0-97.0 HCO3 ARTERIAL (BEAKER) (test rgud=846) 32 mmol/L 21-29 BASE EXCESS ARTERIAL (BEAKER) (test fcdj=375) 7.4 mmol/L -2.0-3.0 PATIENT TEMPERATURE (BEAKER) (test bdkb=2325) 37.4 C FIO2 (BEAKER) (test occr=1600) 80.0 % POCT-GLUCOSE [id number] 12:26:00 Test Item Value Reference Range Comments POC-GLUCOSE METER (BEAKER) 147 mg/dL 70-110 TESTED AT [address] (test tvca=2931) [place] [address] URINE [id number] 11:56:00 Test Item Value Reference Range Comments CULTURE (BEAKER) (test dzpa=3245) No growth POCT-GLUCOSE [id number] 11:11:00 Test Item Value Reference Range Comments POC-GLUCOSE METER (BEAKER) 172 mg/dL 70-110 TESTED AT [address] (test rjns=9438) [place] [id number] POCT-GLUCOSE [id number] 09:54:00 Test Item Value Reference Range Comments POC-GLUCOSE METER (BEAKER) 196 mg/dL 70-110 TESTED AT [address] (test uonb=0311) [place] [id number] LACTIC ACID, ARTERIAL, WHOLE [id number] 09:07:00 Test Item Value Reference Range Comments LACTATE BLOOD ARTERIAL (2) (BEAKER) (test 0.7 mmol/L 0.5-2.2 lodf=1640) Effective 08/06/2015: Units/Reference Range ChangeNew: 0.5-2.2 mmol/L Previous: 5 -20 mg/[id number] 09:06:00 Test Item Value Reference Range Comments MAGNESIUM (BEAKER) (test wnwe=131) 2.2 mg/dL 1.6-2.6 POCT-GLUCOSE [id number] 08:39:00 Test Item Value Reference Range Comments POC-GLUCOSE METER (BEAKER) 188 mg/dL 70-110 TESTED AT [address] (test elxk=3849) [place] [id number] POCT-GLUCOSE [id number] 08:37:00 Test Item Value Reference Range Comments POC-GLUCOSE METER (BEAKER) 195 mg/dL 70-110 TESTED AT [address] (test jsoc=8440) [facility] [address] BLOOD GAS, [id number] 06:46:00 Test Item Value Reference Range Comments PH ARTERIAL (BEAKER) (test calh=046) 7.47 7.35-7.45 PCO2 ARTERIAL (BEAKER) (test enyz=863) 44 mmHg 35-45 PO2 ARTERIAL (BEAKER) (test etex=558) 57 mmHg 80-90 O2 SATURATION ARTERIAL (BEAKER) (test yoof=362) 91.1 % 96.0-97.0 HCO3 ARTERIAL (BEAKER) (test wooj=229) 32 mmol/L 21-29 BASE EXCESS ARTERIAL (BEAKER) (test qjrm=961) 7.1 mmol/L -2.0-3.0 PATIENT TEMPERATURE (BEAKER) (test zhko=0598) 37.0 C [id number] 06:14:00 Test Item Value Reference Range Comments RPR SCREEN (BEAKER) (test zegx=941) Nonreactive Nonreactive CALCIUM, [id number] 05:52:00 Test Item Value Reference Range Comments CALCIUM IONIZED (BEAKER) (test xmmy=335) 1.13 mmol/L 1.12-1.27 PH, BLOOD (BEAKER) (test fmbk=2167) 7.46 [id number] 05:42:00 Test Item Value Reference Range Comments PHOSPHORUS (BEAKER) (test twzu=052) 2.2 mg/dL 2.3-4.7 [id number] 05:42:00 Test Item Value Reference Range Comments MAGNESIUM (BEAKER) (test psly=664) 2.1 mg/dL 1.6-2.6 HEPATIC FUNCTION [id number] 05:42:00 Test Item Value Reference Range Comments TOTAL PROTEIN (BEAKER) (test ogot=763) 6.2 gm/dL 6.0-8.3 ALBUMIN (BEAKER) (test jxqq=2693) 3.1 g/dL 3.5-5.0 BILIRUBIN TOTAL (BEAKER) (test echy=010) 1.4 mg/dL 0.2-1.2 BILIRUBIN DIRECT (BEAKER) (test kusz=249) 0.7 mg/dL 0.1-0.5 ALKALINE PHOSPHATASE (BEAKER) (test fojg=100) 49 U/L 40-150 AST (SGOT) (BEAKER) (test htgz=745) 74 U/L 5-34 ALT (SGPT) (BEAKER) (test nmwn=373) 37 U/L 6-55 LACTATE DEHYDROGENASE (LDH)2017-07-22 05:42:00 Test Item Value Reference Range Comments LACTATE DEHYDROGENASE (BEAKER) (test yvxe=225) 1339 U/L 125-220 [id number] 05:40:00 Test Item Value Reference Range Comments PHOSPHORUS (BEAKER) (test tlij=889) 2.2 mg/dL 2.3-4.7 BASIC METABOLIC [id number] 05:40:00 Test Item Value Reference Range Comments SODIUM (BEAKER) (test 144 meq/L 136-145 gutk=316) POTASSIUM (BEAKER) (test 4.0 meq/L 3.5-5.1 vcfb=698) CHLORIDE (BEAKER) (test 107 meq/L 98-107 shqh=984) CO2 (BEAKER) (test 28 meq/L 22-29 ooal=549) BLOOD UREA NITROGEN 36 mg/dL 7-21 (BEAKER) (test oxhz=316) CREATININE (BEAKER) (test 1.79 mg/dL 0.57-1.25 gznp=538) GLUCOSE RANDOM (BEAKER) 183 mg/dL 70-105 (test fgeu=687) CALCIUM (BEAKER) (test 8.9 mg/dL 8.4-10.2 dwpt=058) EGFR (BEAKER) (test 34 mL/min/1.73 sq m ESTIMATED GFR IS NOT onrr=8574) ACCURATE CREATININE CLEARANCE IN PREDICTING GLOMERULAR FILTRATION RATE. ESTIMATED GFR IS NOT APPLICABLE FOR DIALYSIS PATIENTS. OXYGEN SATURATION, [id number] 05:29:00 Test Item Value Reference Range Comments O2 SATURATION (MEASURED) (BEAKER) (test fxpn=2895) 54.7 % [id number] 05:29:00 Test Item Value Reference Range Comments PARTIAL THROMBOPLASTIN TIME (BEAKER) (test 70.7 seconds 22.5-36.0 dmnc=717) CBC W/PLT COUNT & AUTO [id number] 05:24:00 Test Item Value Reference Range Comments WHITE BLOOD CELL COUNT (BEAKER) (test baqu=283) 13.0 K/ L 3.5-10.5 RED BLOOD CELL COUNT (BEAKER) (test ajwo=866) 3.04 M/ L 3.93-5.22 HEMOGLOBIN (BEAKER) (test uvln=535) 9.0 GM/DL 11.2-15.7 HEMATOCRIT (BEAKER) (test bxtk=578) 29.0 % 34.1-44.9 MEAN CORPUSCULAR VOLUME (BEAKER) (test xexr=598) 95.4 fL 79.4-94.8 MEAN CORPUSCULAR HEMOGLOBIN (BEAKER) (test 29.6 pg 25.6-32.2 tqzb=790) MEAN CORPUSCULAR HEMOGLOBIN CONC (BEAKER) (test 31.0 GM/DL 32.2-35.5 qmds=674) RED CELL DISTRIBUTION WIDTH (BEAKER) (test 15.5 % 11.7-14.4 yjeh=768) PLATELET COUNT (BEAKER) (test mnob=012) 132 K/CU MM 150-450 MEAN PLATELET VOLUME (BEAKER) (test rwnf=750) 11.4 fL 9.4-12.3 NUCLEATED RED BLOOD CELLS (BEAKER) (test 0 /100 WBC 0-0 pfxe=070) NEUTROPHILS RELATIVE PERCENT (BEAKER) (test 80 % cjlm=740) LYMPHOCYTES RELATIVE PERCENT (BEAKER) (test 10 % ppsq=578) MONOCYTES RELATIVE PERCENT (BEAKER) (test 9 % jsqf=397) EOSINOPHILS RELATIVE PERCENT (BEAKER) (test 0 % kega=416) BASOPHILS RELATIVE PERCENT (BEAKER) (test 0 % fqrs=378) NEUTROPHILS ABSOLUTE COUNT (BEAKER) (test 10.44 K/ L 1.56-6.13 xyln=497) LYMPHOCYTES ABSOLUTE COUNT (BEAKER) (test 1.29 K/ L 1.18-3.74 lmsu=230) MONOCYTES ABSOLUTE COUNT (BEAKER) (test 1.12 K/ L 0.24-0.36 fluj=446) EOSINOPHILS ABSOLUTE COUNT (BEAKER) (test 0.01 K/ L 0.04-0.36 rwhv=811) BASOPHILS ABSOLUTE COUNT (BEAKER) (test 0.04 K/ L 0.01-0.08 kfnc=745) IMMATURE GRANULOCYTES-RELATIVE PERCENT (BEAKER) 1 % 0-1 (test sgah=0315) RAD, CHEST, 1 VIEW, NON [id number] 04:45:00Reason for exam:->respiratory insufficiencyFINAL REPORT CLINICAL INDICATION: Respiratory insufficiency Comparison: 07/21/2017 The cardiomediastinal contours are stable. The left hemidiaphragm is slightly elevated. Centralpulmonary vascular congestion and bilateral parenchymal opacities are unchanged. There is no pneumothorax. A femoral Impella device remains in place. Signed: Adelso Sorensen Verified Date/Time:07/22/2017 04:45:12 Reading Location: [address] Reading Room POCT-GLUCOSE [id number] 03:01:00 Test Item Value Reference Range Comments POC-GLUCOSE METER (BEAKER) 115 mg/dL 70-110 TESTED AT [address] (test hgei=2862) [facility] [address] POCT-GLUCOSE [id number] 00:14:00 Test Item Value Reference Range Comments POC-GLUCOSE METER (BEAKER) 137 mg/dL 70-110 TESTED AT [address] (test nudm=7774) [facility] [address] [id number] 00:09:00 Test Item Value Reference Range Comments POTASSIUM (BEAKER) (test puip=447) 3.8 meq/L 3.5-5.1 PRN - repeat glucose levels every 1 hour or as specified by insulin titration orders until glucose level is less than 450 mg/dLCheck Serum Potassium level 2 hours after oral potassium replacement completed or 30 min after intravenous potassium replacement.[id number] 00:09:00 Test Item Value Reference Range Comments MAGNESIUM (BEAKER) (test dpbq=901) 2.5 mg/dL 1.6-2.6 PRN - repeat glucose levels every 1 hour or as specified by insulin titration orders until glucose level is less than 450 mg/dLCheck Serum Potassium level 2 hours after oral potassium replacement completed or 30 min after intravenous potassium replacement.[id number] 00:09:00 Test Item Value Reference Range Comments PHOSPHORUS (BEAKER) (test auzm=988) 1.9 mg/dL 2.3-4.7 PRN - repeat glucose levels every 1 hour or as specified by insulin titration orders until glucose level is less than 450 mg/dLCheck Serum Potassium level 2 hours after oral potassium replacement completed or 30 min after intravenous potassium replacement.[id number] 00:09:00 Test Item Value Reference Range Comments GLUCOSE RANDOM (BEAKER) (test sqfd=248) 155 mg/dL 70-105 PRN - repeat glucose levels every 1 hour or as specified by insulin titration orders until glucose level is less than 450 mg/dLCheck Serum Potassium level 2 hours after oral potassium replacement completed or 30 min after intravenous potassium replacement.BASIC METABOLIC [id number] 00:09:00 Test Item Value Reference Range Comments SODIUM (BEAKER) (test 142 meq/L 136-145 xvuu=826) POTASSIUM (BEAKER) (test 3.8 meq/L 3.5-5.1 eklz=754) CHLORIDE (BEAKER) (test 105 meq/L 98-107 wfjf=762) CO2 (BEAKER) (test 30 meq/L 22-29 wzsm=698) BLOOD UREA NITROGEN 37 mg/dL 7-21 (BEAKER) (test oewk=436) CREATININE (BEAKER) (test 1.80 mg/dL 0.57-1.25 wwhn=056) GLUCOSE RANDOM (BEAKER) 155 mg/dL 70-105 (test jgcg=991) CALCIUM (BEAKER) (test 8.8 mg/dL 8.4-10.2 audx=436) EGFR (BEAKER) (test 34 mL/min/1.73 sq m ESTIMATED GFR IS NOT pdyj=1525) ACCURATE CREATININE CLEARANCE IN PREDICTING GLOMERULAR FILTRATION RATE. ESTIMATED GFR IS NOT APPLICABLE FOR DIALYSIS PATIENTS. PRN - repeat glucose levels every 1 hour or as specified by insulin titration orders until glucose level is less than 450 mg/dLCheck Serum Potassium level 2 hours after oral potassium replacement completed or 30 min after intravenous potassium replacement.[id number] 00:06:00 Test Item Value Reference Range Comments PARTIAL THROMBOPLASTIN TIME (BEAKER) (test 62.0 seconds 22.5-36.0 spsn=428) BLOOD GAS, [id number] 20:39:00 Test Item Value Reference Range Comments PH ARTERIAL (BEAKER) (test upum=294) 7.45 7.35-7.45 PCO2 ARTERIAL (BEAKER) (test tsnr=263) 46 mmHg 35-45 PO2 ARTERIAL (BEAKER) (test kkgb=048) 64 mmHg 80-90 O2 SATURATION ARTERIAL (BEAKER) (test zhgu=310) 92.0 % 96.0-97.0 HCO3 ARTERIAL (BEAKER) (test qmok=478) 31 mmol/L 21-29 BASE EXCESS ARTERIAL (BEAKER) (test auro=123) 6.7 mmol/L -2.0-3.0 PATIENT TEMPERATURE (BEAKER) (test samb=7608) 38.1 C FIO2 (BEAKER) (test kdmz=7525) 80.0 % POTASSIUM-STAT [id number] 20:39:00 Test Item Value Reference Range Comments POTASSIUM (BEAKER) (test zjip=387) 3.4 meq/L 3.6-5.5 [id number] 20:16:00 Test Item Value Reference Range Comments FERRITIN (BEAKER) (test rhkt=315) 651 ng/mL 5-275 POCT-GLUCOSE [id number] 20:10:00 Test Item Value Reference Range Comments POC-GLUCOSE METER (BEAKER) 180 mg/dL 70-110 TESTED AT [facility] [address] (test bxdp=2799) [facility] [address] POCT-GLUCOSE [id number] 20:10:00 Test Item Value Reference Range Comments POC-GLUCOSE METER (BEAKER) 197 mg/dL 70-110 TESTED AT [facility] [address] (test efvq=8639) [place] [address] [id number] 19:54:00 Test Item Value Reference Range Comments PARTIAL THROMBOPLASTIN TIME (BEAKER) (test 62.4 seconds 22.5-36.0 qera=582) [id number] 19:53:00 Test Item Value Reference Range Comments MAGNESIUM (BEAKER) (test sbkm=396) 2.2 mg/dL 1.6-2.6 HEPATITIS A ANTIBODY, [id number] 19:25:00 Test Item Value Reference Range Comments HEPATITIS A IGG ANTIBODY (BEAKER) (test vuoc=5907) Reactive Nonreactive GLUCOSE-STAT [id number] 19:24:00 Test Item Value Reference Range Comments GLUCOSE RANDOM (BEAKER) (test blri=884) 174 mg/dL 70-110 HGB/HCT (H&H) - STAT [id number] 19:24:00 Test Item Value Reference Range Comments HEMOGLOBIN (BEAKER) (test hzeb=510) 10.1 g/dL 12.0-15.0 HEMATOCRIT (BEAKER) (test jjug=289) 30.0 % 36.0-45.0 POTASSIUM-STAT [id number] 19:24:00 Test Item Value Reference Range Comments POTASSIUM (BEAKER) (test inuh=850) 3.4 meq/L 3.6-5.5 HEPATITIS B CORE ANTIBODY, [id number] 19:21:00 Test Item Value Reference Range Comments HEPATITIS B CORE TOTAL ANTIBODY (BEAKER) (test Nonreactive Nonreactive nnoh=446) HEPATITIS PANEL, [id number] 19:21:00 Test Item Value Reference Range Comments HEPATITIS A IGM ANTIBODY (BEAKER) (test Nonreactive Nonreactive sbib=821) HEPATITIS B CORE IGM ANTIBODY (BEAKER) (test Nonreactive Nonreactive ecku=349) HEPATITIS C ANTIBODY (BEAKER) (test jfwu=975) Nonreactive Nonreactive HEPATITIS B SURFACE ANTIGEN (2) (BEAKER) (test Nonreactive Nonreactive gprb=5773) HIV-1 ANTIGEN WITH HIV-1/2 [id number] 19:21:00 Test Item Value Reference Range Comments HIV-1 ANTIGEN WITH HIV 1\T\2 ANTIBODY (2) Nonreactive Nonreactive (BEAKER) (test umhy=8198) BASIC METABOLIC [id number] 18:05:00 Test Item Value Reference Range Comments SODIUM (BEAKER) (test 141 meq/L 136-145 ooci=674) POTASSIUM (BEAKER) (test 4.0 meq/L 3.5-5.1 rzvh=397) CHLORIDE (BEAKER) (test 104 meq/L 98-107 iwjg=741) CO2 (BEAKER) (test 26 meq/L 22-29 szui=110) BLOOD UREA NITROGEN 41 mg/dL 7-21 (BEAKER) (test adqa=582) CREATININE (BEAKER) (test 2.07 mg/dL 0.57-1.25 vhvr=601) GLUCOSE RANDOM (BEAKER) 242 mg/dL 70-105 (test vqxv=898) CALCIUM (BEAKER) (test 8.9 mg/dL 8.4-10.2 gvkz=552) EGFR (BEAKER) (test 29 mL/min/1.73 sq m ESTIMATED GFR IS NOT omki=3647) ACCURATE CREATININE CLEARANCE IN PREDICTING GLOMERULAR FILTRATION RATE. ESTIMATED GFR IS NOT APPLICABLE FOR DIALYSIS PATIENTS. Check Serum Potassium level 2 hours after oral potassium replacement completed or 30 min after intravenous potassium replacement.[id number] 18:02:00 Test Item Value Reference Range Comments POTASSIUM (BEAKER) (test qnoh=140) 4.0 meq/L 3.5-5.1 Check Serum Potassium level 2 hours after oral potassium replacement completed or 30 min after intravenous potassium replacement.[id number] 18:02:00 Test Item Value Reference Range Comments MAGNESIUM (BEAKER) (test ayym=389) 2.2 mg/dL 1.6-2.6 Check Serum Potassium level 2 hours after oral potassium replacement completed or 30 min after intravenous potassium replacement.[id number] 18:02:00 Test Item Value Reference Range Comments PHOSPHORUS (BEAKER) (test elwy=612) 2.1 mg/dL 2.3-4.7 Check Serum Potassium level 2 hours after oral potassium replacement completed or 30 min after intravenous potassium replacement.POCT-GLUCOSE [id number] 17:31:00 Test Item Value Reference Range Comments POC-GLUCOSE METER (BEAKER) 253 mg/dL 70-110 TESTED AT [facility] [address] [facility] (test oguq=9582) [facility] [address] VITAMIN D, [id number] 17:31:00 Test Item Value Reference Range Comments VITAMIN D 25-OH (BEAKER) (test babx=3700) 5.8 ng/mL 6.6-49.9 Effective 01/12/2017: Reference Range ChangeNew: 6.6-49.9 ng/mL Previous: 13.0 -47.8 ng/mLRecommended Vitamin D Target Range: 30.0-40.0 ng/mLPOCT-GLUCOSE [id number] 17:31:00 Test Item Value Reference Range Comments POC-GLUCOSE METER (BEAKER) 269 mg/dL 70-110 TESTED AT [facility] [address] [facility] (test jxzv=4115) [facility] [address] [id number] 17:09:00 Test Item Value Reference Range Comments TRANSFERRIN (BEAKER) (test bxcu=050) 166 mg/dL 174-382 [id number] 17:09:00 Test Item Value Reference Range Comments PREALBUMIN (BEAKER) (test fuje=931) 14 mg/dL 14-45 IRON, [id number] 17:09:00 Test Item Value Reference Range Comments IRON (BEAKER) (test zaru=531) 57 ug/dL 40-160 TROPONIN [id number] 16:59:00 Test Item Value Reference Range Comments TROPONIN I (BEAKER) (test fufm=169) 45.70 ng/mL 0.00-0.03 Troponin I (TnI) levels [...] failure, acidosis, acute neurological disease, and persistent tachyarrhythmia.[id number] 16:49:00 Test Item Value Reference Range Comments CREATININE (BEAKER) (test 2.17 mg/dL 0.57-1.25 osvc=138) EGFR (BEAKER) (test 27 mL/min/1.73 sq m ESTIMATED GFR IS NOT higu=5932) ACCURATE CREATININE CLEARANCE IN PREDICTING GLOMERULAR FILTRATION RATE. ESTIMATED GFR IS NOT APPLICABLE FOR DIALYSIS PATIENTS. URIC [id number] 16:48:00 Test Item Value Reference Range Comments URIC ACID (BEAKER) (test bxla=644) 8.2 mg/dL 2.6-7.2 LIPID [id number] 16:48:00 Test Item Value Reference Range Comments TRIGLYCERIDES (BEAKER) (test xlcu=581) 122 mg/dL CHOLESTEROL (BEAKER) (test uvpj=748) 204 mg/dL HDL CHOLESTEROL (BEAKER) (test iaez=507) 85 mg/dL LDL CHOLESTEROL CALCULATED (BEAKER) (test 95 mg/dL mygj=067) Triglyceride Reference Range: Low Risk <150 Borderline 150- 199 High Risk 200-499 Very High Risk >=500Cholesterol Reference Range: Low Risk <200 Borderline 200-239 High Risk > 240HDL Cholesterol Reference Range: Low Risk >=60 High Risk <40LDL Cholesterol Reference Range: Optimal <100 Near Optimal 100-129 Borderline 130-159 High 160-189 Very High >=[id number] 16:48:00 Test Item Value Reference Range Comments AMYLASE (BEAKER) (test lvfa=899) 228 U/L 25-125 GAMMA GLUTAMYL TRANSFERASE (GGT)2017-07-21 16:48:00 Test Item Value Reference Range Comments GAMMA GLUTAMYL TRANSFERASE (BEAKER) (test pcet=298) 52 U/L 9-64 RETICULOCYTE [id number] 16:39:00 Test Item Value Reference Range Comments RETICULOCYTE COUNT PCT (BEAKER) (test wypc=367) 3.8 % 0.5-1.7 TROPONIN [id number] 13:49:00 Test Item Value Reference Range Comments TROPONIN I (BEAKER) (test oyjp=108) 43.19 ng/mL 0.00-0.03 Troponin I (TnI) levels [...] acute neurological disease, and persistent tachyarrhythmia.BASIC METABOLIC [id number] 12:22:00 Test Item Value Reference Range Comments SODIUM (BEAKER) (test 141 meq/L 136-145 poqg=236) POTASSIUM (BEAKER) (test 3.9 meq/L 3.5-5.1 quex=595) CHLORIDE (BEAKER) (test 102 meq/L 98-107 czbq=871) CO2 (BEAKER) (test 28 meq/L 22-29 uiqg=850) BLOOD UREA NITROGEN 40 mg/dL 7-21 (BEAKER) (test sooo=725) CREATININE (BEAKER) (test 2.20 mg/dL 0.57-1.25 exly=575) GLUCOSE RANDOM (BEAKER) 238 mg/dL 70-105 (test ltjf=615) CALCIUM (BEAKER) (test 8.9 mg/dL 8.4-10.2 bqyw=667) EGFR (BEAKER) (test 27 mL/min/1.73 sq m ESTIMATED GFR IS NOT npac=7641) ACCURATE CREATININE CLEARANCE IN PREDICTING GLOMERULAR FILTRATION RATE. ESTIMATED GFR IS NOT APPLICABLE FOR DIALYSIS PATIENTS. [id number] 12:17:00 Test Item Value Reference Range Comments POTASSIUM (BEAKER) (test uxom=302) 3.9 meq/L 3.5-5.1 [id number] 12:17:00 Test Item Value Reference Range Comments MAGNESIUM (BEAKER) (test rubb=208) 2.4 mg/dL 1.6-2.6 [id number] 12:17:00 Test Item Value Reference Range Comments PHOSPHORUS (BEAKER) (test zyba=766) 3.7 mg/dL 2.3-4.7 [id number] 12:17:00 Test Item Value Reference Range Comments GLUCOSE RANDOM (BEAKER) (test hylw=306) 238 mg/dL 70-105 [id number] 12:04:00 Test Item Value Reference Range Comments PARTIAL THROMBOPLASTIN TIME (BEAKER) (test 59.3 seconds 22.5-36.0 mgix=803) SPUTUM CULTURE + GRAM [id number] 11:47:00 Test Item Value Reference Range Comments CULTURE (BEAKER) (test <1+ Normal respiratory pascual jyfu=9151) present GRAM STAIN RESULT (BEAKER) 1+ WBCs (test wjwu=9650) GRAM STAIN RESULT (BEAKER) 0-5 epithelial cells (test bbnq=82427) GRAM STAIN RESULT (BEAKER) No organisms seen (test unsl=56790) HEMOGLOBIN AND [id number] 11:26:00 Test Item Value Reference Range Comments HEMOGLOBIN (BEAKER) (test zasz=919) 7.9 GM/DL 11.2-15.7 HEMATOCRIT (BEAKER) (test khbv=186) 26.5 % 34.1-44.9 BLOOD GAS, [id number] 10:43:00 Test Item Value Reference Range Comments PH ARTERIAL (BEAKER) (test wcwk=493) 7.42 7.35-7.45 PCO2 ARTERIAL (BEAKER) (test eoov=192) 44 mmHg 35-45 PO2 ARTERIAL (BEAKER) (test brip=576) 51 mmHg 80-90 O2 SATURATION ARTERIAL (BEAKER) (test upcl=576) 88.2 % 96.0-97.0 HCO3 ARTERIAL (BEAKER) (test bnxq=834) 28 mmol/L 21-29 BASE EXCESS ARTERIAL (BEAKER) (test qvlx=664) 3.2 mmol/L -2.0-3.0 PATIENT TEMPERATURE (BEAKER) (test xwsg=8895) 36.0 C FIO2 (BEAKER) (test srwj=2449) 80.0 % URINE [id number] 09:44:00 Test Item Value Reference Range Comments CULTURE (BEAKER) (test sjvl=8017) No growth BASIC METABOLIC [id number] 06:28:00 Test Item Value Reference Range Comments SODIUM (BEAKER) (test 141 meq/L 136-145 diyw=278) POTASSIUM (BEAKER) (test 4.1 meq/L 3.5-5.1 wzok=097) CHLORIDE (BEAKER) (test 101 meq/L 98-107 qpaa=914) CO2 (BEAKER) (test 29 meq/L 22-29 mqrt=983) BLOOD UREA NITROGEN 40 mg/dL 7-21 (BEAKER) (test tyyw=410) CREATININE (BEAKER) (test 2.46 mg/dL 0.57-1.25 xtjx=812) GLUCOSE RANDOM (BEAKER) 236 mg/dL 70-105 (test xzgq=879) CALCIUM (BEAKER) (test 8.6 mg/dL 8.4-10.2 hwiv=300) EGFR (BEAKER) (test 24 mL/min/1.73 sq m ESTIMATED GFR IS NOT gchc=4587) ACCURATE CREATININE CLEARANCE IN PREDICTING GLOMERULAR FILTRATION RATE. ESTIMATED GFR IS NOT APPLICABLE FOR DIALYSIS PATIENTS. [id number] 06:26:00 Test Item Value Reference Range Comments PHOSPHORUS (BEAKER) (test qvyp=332) 4.6 mg/dL 2.3-4.7 POCT-GLUCOSE [id number] 06:05:00 Test Item Value Reference Range Comments POC-GLUCOSE METER (BEAKER) 278 mg/dL 70-110 TESTED AT [address] (test whmf=7989) [facility] [address] POCT-GLUCOSE [id number] 06:05:00 Test Item Value Reference Range Comments POC-GLUCOSE METER (BEAKER) 231 mg/dL 70-110 TESTED AT [address] (test okfv=3944) [facility] [address] POCT-GLUCOSE [id number] 06:05:00 Test Item Value Reference Range Comments POC-GLUCOSE METER (BEAKER) 190 mg/dL 70-110 TESTED AT [address] (test ouaf=6098) [facility] [address] [id number] 05:56:00 Test Item Value Reference Range Comments PARTIAL THROMBOPLASTIN TIME (BEAKER) (test 72.5 seconds 22.5-36.0 urll=775) RAD, CHEST, 1 VIEW, NON [id number] 04:38:00Reason for exam:->respiratory insufficiencyFINAL REPORT CLINICAL INDICATION: Respiratory insufficiency Comparison: 07/20/2017 The cardiomediastinal contours are stable. Central pulmonary vascular prominence and bilateral parenchymal opacities are similar within variation of acquisition technique. There is no pneumothorax. A femoral Impella device is stable in position. Signed: Adelso Sorensen MDReport Verified Date/Time:07/21/2017 04:38:32 Reading Location: [address] Reading Room BASIC METABOLIC [id number] 04:06:00 Test Item Value Reference Range Comments SODIUM (BEAKER) (test 142 meq/L 136-145 urkf=086) POTASSIUM (BEAKER) (test 3.9 meq/L 3.5-5.1 lgla=906) CHLORIDE (BEAKER) (test 102 meq/L 98-107 rssq=871) CO2 (BEAKER) (test 31 meq/L 22-29 qqfh=434) BLOOD UREA NITROGEN 40 mg/dL 7-21 (BEAKER) (test jijv=935) CREATININE (BEAKER) (test 2.37 mg/dL 0.57-1.25 ebup=002) GLUCOSE RANDOM (BEAKER) 206 mg/dL 70-105 (test apfn=004) CALCIUM (BEAKER) (test 8.5 mg/dL 8.4-10.2 shjy=459) EGFR (BEAKER) (test 25 mL/min/1.73 sq m ESTIMATED GFR IS NOT jiqn=4252) ACCURATE CREATININE CLEARANCE IN PREDICTING GLOMERULAR FILTRATION RATE. ESTIMATED GFR IS NOT APPLICABLE FOR DIALYSIS PATIENTS. BLOOD GAS, [id number] 03:53:00 Test Item Value Reference Range Comments PH ARTERIAL (BEAKER) (test qapp=137) 7.36 7.35-7.45 PCO2 ARTERIAL (BEAKER) (test jzyd=315) 55 mmHg 35-45 PO2 ARTERIAL (BEAKER) (test pkpe=753) 94 mmHg 80-90 O2 SATURATION ARTERIAL (BEAKER) (test rdzz=429) 96.0 % 96.0-97.0 HCO3 ARTERIAL (BEAKER) (test qwnn=266) 30 mmol/L 21-29 BASE EXCESS ARTERIAL (BEAKER) (test edpm=904) 4.2 mmol/L -2.0-3.0 PATIENT TEMPERATURE (BEAKER) (test xkxb=8958) 38.8 C FIO2 (BEAKER) (test irky=1701) 80.0 % CALCIUM, [id number] 03:51:00 Test Item Value Reference Range Comments CALCIUM IONIZED (BEAKER) (test amzh=012) 1.07 mmol/L 1.12-1.27 PH, BLOOD (BEAKER) (test blgb=1215) 7.35 OXYGEN SATURATION, [id number] 03:50:00 Test Item Value Reference Range Comments O2 SATURATION (MEASURED) (BEAKER) (test wqzu=9013) 72.6 % [id number] 03:47:00 Test Item Value Reference Range Comments PHOSPHORUS (BEAKER) (test unin=149) 4.5 mg/dL 2.3-4.7 [id number] 03:47:00 Test Item Value Reference Range Comments MAGNESIUM (BEAKER) (test zfzx=442) 2.1 mg/dL 1.6-2.6 HEPATIC FUNCTION [id number] 03:47:00 Test Item Value Reference Range Comments TOTAL PROTEIN (BEAKER) (test uiqq=084) 6.1 gm/dL 6.0-8.3 ALBUMIN (BEAKER) (test utbw=4783) 3.1 g/dL 3.5-5.0 BILIRUBIN TOTAL (BEAKER) (test wrse=128) 1.4 mg/dL 0.2-1.2 BILIRUBIN DIRECT (BEAKER) (test viil=390) 0.6 mg/dL 0.1-0.5 ALKALINE PHOSPHATASE (BEAKER) (test yofq=272) 45 U/L 40-150 AST (SGOT) (BEAKER) (test qyye=657) 94 U/L 5-34 ALT (SGPT) (BEAKER) (test qfvu=357) 48 U/L 6-55 LACTATE DEHYDROGENASE (LDH)2017-07-21 03:47:00 Test Item Value Reference Range Comments LACTATE DEHYDROGENASE (BEAKER) (test dhqk=276) 1470 U/L 125-220 CBC W/PLT COUNT & AUTO [id number] 03:41:00 Test Item Value Reference Range Comments WHITE BLOOD CELL COUNT (BEAKER) (test gtwq=945) 14.1 K/ L 3.5-10.5 RED BLOOD CELL COUNT (BEAKER) (test mwvz=368) 2.81 M/ L 3.93-5.22 HEMOGLOBIN (BEAKER) (test cspt=154) 8.6 GM/DL 11.2-15.7 HEMATOCRIT (BEAKER) (test ajwz=471) 28.2 % 34.1-44.9 MEAN CORPUSCULAR VOLUME (BEAKER) (test fknl=045) 100.4 fL 79.4-94.8 MEAN CORPUSCULAR HEMOGLOBIN (BEAKER) (test 30.6 pg 25.6-32.2 iqbf=977) MEAN CORPUSCULAR HEMOGLOBIN CONC (BEAKER) (test 30.5 GM/DL 32.2-35.5 mups=055) RED CELL DISTRIBUTION WIDTH (BEAKER) (test 13.1 % 11.7-14.4 guan=583) PLATELET COUNT (BEAKER) (test mdrd=529) 140 K/CU MM 150-450 MEAN PLATELET VOLUME (BEAKER) (test rcyu=015) 11.1 fL 9.4-12.3 NUCLEATED RED BLOOD CELLS (BEAKER) (test 0 /100 WBC 0-0 ohye=988) NEUTROPHILS RELATIVE PERCENT (BEAKER) (test 86 % oaiz=330) LYMPHOCYTES RELATIVE PERCENT (BEAKER) (test 6 % bqvx=149) MONOCYTES RELATIVE PERCENT (BEAKER) (test 8 % eogw=722) EOSINOPHILS RELATIVE PERCENT (BEAKER) (test 0 % yfah=630) BASOPHILS RELATIVE PERCENT (BEAKER) (test 0 % smwz=038) NEUTROPHILS ABSOLUTE COUNT (BEAKER) (test 12.13 K/ L 1.56-6.13 hzop=833) LYMPHOCYTES ABSOLUTE COUNT (BEAKER) (test 0.81 K/ L 1.18-3.74 qxcc=132) MONOCYTES ABSOLUTE COUNT (BEAKER) (test 1.07 K/ L 0.24-0.36 gmkc=757) EOSINOPHILS ABSOLUTE COUNT (BEAKER) (test 0.00 K/ L 0.04-0.36 wink=217) BASOPHILS ABSOLUTE COUNT (BEAKER) (test 0.02 K/ L 0.01-0.08 rqii=214) IMMATURE GRANULOCYTES-RELATIVE PERCENT (BEAKER) 1 % 0-1 (test opew=5062) LACTIC ACID, ARTERIAL, WHOLE [id number] 03:39:00 Test Item Value Reference Range Comments LACTATE BLOOD ARTERIAL (2) (BEAKER) (test 0.9 mmol/L 0.5-2.2 aysn=7480) Effective 08/06/2015: Units/Reference Range ChangeNew: 0.5-2.2 mmol/L Previous: 5 -20 mg/dLTROPONIN [id number] 00:12:00 Test Item Value Reference Range Comments TROPONIN I (BEAKER) (test fvxz=349) 60.74 ng/mL 0.00-0.03 Troponin I (TnI) levels [...] failure, acidosis, acute neurological disease, and persistent tachyarrhythmia.[id number] 23:42:00 Test Item Value Reference Range Comments PHOSPHORUS (BEAKER) (test lrbc=588) 4.9 mg/dL 2.3-4.7 BASIC METABOLIC [id number] 23:42:00 Test Item Value Reference Range Comments SODIUM (BEAKER) (test 141 meq/L 136-145 iawy=071) POTASSIUM (BEAKER) (test 4.2 meq/L 3.5-5.1 zxzy=401) CHLORIDE (BEAKER) (test 102 meq/L 98-107 dtln=458) CO2 (BEAKER) (test 29 meq/L 22-29 kgpq=201) BLOOD UREA NITROGEN 40 mg/dL 7-21 (BEAKER) (test gajo=667) CREATININE (BEAKER) (test 2.36 mg/dL 0.57-1.25 syia=263) GLUCOSE RANDOM (BEAKER) 200 mg/dL 70-105 (test roas=584) CALCIUM (BEAKER) (test 8.4 mg/dL 8.4-10.2 jijl=594) EGFR (BEAKER) (test 25 mL/min/1.73 sq m ESTIMATED GFR IS NOT exkz=2096) ACCURATE CREATININE CLEARANCE IN PREDICTING GLOMERULAR FILTRATION RATE. ESTIMATED GFR IS NOT APPLICABLE FOR DIALYSIS PATIENTS. [id number] 23:39:00 Test Item Value Reference Range Comments PARTIAL THROMBOPLASTIN TIME (BEAKER) (test 78.1 seconds 22.5-36.0 nimi=052) POCT-GLUCOSE [id number] 23:28:00 Test Item Value Reference Range Comments POC-GLUCOSE METER (BEAKER) 250 mg/dL 70-110 TESTED AT [facility] [address] [facility] (test npme=6765) [facility] [address] POCT-GLUCOSE [id number] 22:19:00 Test Item Value Reference Range Comments POC-GLUCOSE METER (BEAKER) 202 mg/dL 70-110 TESTED AT [facility] [address] [facility] (test vzhr=3198) [facility] [address] HEPATIC FUNCTION [id number] 21:45:00 Test Item Value Reference Range Comments TOTAL PROTEIN (BEAKER) (test trhf=437) 5.9 gm/dL 6.0-8.3 ALBUMIN (BEAKER) (test hoxb=5564) 3.1 g/dL 3.5-5.0 BILIRUBIN TOTAL (BEAKER) (test edwd=215) 1.0 mg/dL 0.2-1.2 BILIRUBIN DIRECT (BEAKER) (test azpe=666) 0.5 mg/dL 0.1-0.5 ALKALINE PHOSPHATASE (BEAKER) (test obgv=286) 46 U/L 40-150 AST (SGOT) (BEAKER) (test mzfs=036) 95 U/L 5-34 ALT (SGPT) (BEAKER) (test kcoc=107) 47 U/L 6-55 BASIC METABOLIC [id number] 21:45:00 Test Item Value Reference Range Comments SODIUM (BEAKER) (test 141 meq/L 136-145 vesu=759) POTASSIUM (BEAKER) (test 4.0 meq/L 3.5-5.1 ahsx=432) CHLORIDE (BEAKER) (test 103 meq/L 98-107 yibj=825) CO2 (BEAKER) (test 27 meq/L 22-29 fhwp=929) BLOOD UREA NITROGEN 40 mg/dL 7-21 (BEAKER) (test djwr=239) CREATININE (BEAKER) (test 2.30 mg/dL 0.57-1.25 ipuf=819) GLUCOSE RANDOM (BEAKER) 192 mg/dL 70-105 (test mret=212) CALCIUM (BEAKER) (test 8.4 mg/dL 8.4-10.2 inbk=528) EGFR (BEAKER) (test 25 mL/min/1.73 sq m ESTIMATED GFR IS NOT tkqs=8002) ACCURATE CREATININE CLEARANCE IN PREDICTING GLOMERULAR FILTRATION RATE. ESTIMATED GFR IS NOT APPLICABLE FOR DIALYSIS PATIENTS. [id number] 21:38:00 Test Item Value Reference Range Comments MAGNESIUM (BEAKER) (test mrog=427) 2.1 mg/dL 1.6-2.6 LACTIC ACID, ARTERIAL, WHOLE [id number] 21:32:00 Test Item Value Reference Range Comments LACTATE BLOOD ARTERIAL (2) (BEAKER) (test 0.6 mmol/L 0.5-2.2 dgkh=2119) Effective 08/06/2015: Units/Reference Range ChangeNew: 0.5-2.2 mmol/L Previous: 5 -20 mg/dLPOCT-GLUCOSE [id number] 21:21:00 Test Item Value Reference Range Comments POC-GLUCOSE METER (BEAKER) 198 mg/dL 70-110 TESTED AT [address] (test qcds=0578) [facility] [address] POCT-GLUCOSE [id number] 21:21:00 Test Item Value Reference Range Comments POC-GLUCOSE METER (BEAKER) 155 mg/dL 70-110 TESTED AT [address] (test hcoz=9119) [facility] [address] POCT-GLUCOSE [id number] 21:21:00 Test Item Value Reference Range Comments POC-GLUCOSE METER (BEAKER) 67 mg/dL 70-110 TESTED AT [address] (test nqia=4158) [facility] [address] BLOOD GAS, [id number] 21:16:00 Test Item Value Reference Range Comments PH ARTERIAL (BEAKER) (test nwjz=349) 7.34 7.35-7.45 PCO2 ARTERIAL (BEAKER) (test yecv=307) 56 mmHg 35-45 PO2 ARTERIAL (BEAKER) (test qcgv=008) 107 mmHg 80-90 O2 SATURATION ARTERIAL (BEAKER) (test nhqv=407) 97.3 % 96.0-97.0 HCO3 ARTERIAL (BEAKER) (test lkgy=153) 29 mmol/L 21-29 BASE EXCESS ARTERIAL (BEAKER) (test oowl=531) 2.7 mmol/L -2.0-3.0 PATIENT TEMPERATURE (BEAKER) (test zsgd=7711) 37.8 C FIO2 (BEAKER) (test ymto=7098) 100.0 % GLUCOSE-STAT [id number] 21:16:00 Test Item Value Reference Range Comments GLUCOSE RANDOM (BEAKER) (test rdil=770) 188 mg/dL 70-110 HGB/HCT (H&H) - STAT [id number] 21:16:00 Test Item Value Reference Range Comments HEMOGLOBIN (BEAKER) (test qaxb=239) 9.9 g/dL 12.0-15.0 HEMATOCRIT (BEAKER) (test yewl=789) 29.0 % 36.0-45.0 SODIUM NA-STAT [id number] 21:15:00 Test Item Value Reference Range Comments SODIUM (BEAKER) (test wbdq=835) 140 meq/L 135-148 POTASSIUM-STAT [id number] 21:15:00 Test Item Value Reference Range Comments POTASSIUM (BEAKER) (test uebg=135) 3.9 meq/L 3.6-5.5 BLOOD GAS, [id number] 19:44:00 Test Item Value Reference Range Comments PH ARTERIAL (BEAKER) (test zhwv=990) 7.34 7.35-7.45 PCO2 ARTERIAL (BEAKER) (test qbzn=648) 31 mmHg 35-45 PO2 ARTERIAL (BEAKER) (test yiji=086) 68 mmHg 80-90 O2 SATURATION ARTERIAL (BEAKER) (test pbif=344) 92.1 % 96.0-97.0 HCO3 ARTERIAL (BEAKER) (test zrzn=577) 16 mmol/L 21-29 BASE EXCESS ARTERIAL (BEAKER) (test hppx=494) -8.7 mmol/L -2.0-3.0 PATIENT TEMPERATURE (BEAKER) (test drfz=1579) 37.7 C FIO2 (BEAKER) (test njij=9085) 50.0 % POCT-GLUCOSE [id number] 18:30:00 Test Item Value Reference Range Comments POC-GLUCOSE METER (BEAKER) 90 mg/dL 70-110 TESTED AT [address] (test xnom=5585) [facility] [address] TROPONIN [id number] 18:05:00 Test Item Value Reference Range Comments TROPONIN I (BEAKER) (test snfq=922) 76.69 ng/mL 0.00-0.03 Troponin I (TnI) levels [...] acute neurological disease, and persistent tachyarrhythmia.BASIC METABOLIC [id number] 17:56:00 Test Item Value Reference Range Comments SODIUM (BEAKER) (test 143 meq/L 136-145 xtra=983) POTASSIUM (BEAKER) (test 3.8 meq/L 3.5-5.1 hhgd=367) CHLORIDE (BEAKER) (test 104 meq/L 98-107 zrgl=360) CO2 (BEAKER) (test 29 meq/L 22-29 sdcu=245) BLOOD UREA NITROGEN 37 mg/dL 7-21 (BEAKER) (test dwzs=863) CREATININE (BEAKER) (test 2.45 mg/dL 0.57-1.25 izuc=362) GLUCOSE RANDOM (BEAKER) 107 mg/dL 70-105 (test ohsd=035) CALCIUM (BEAKER) (test 8.6 mg/dL 8.4-10.2 vuzh=616) EGFR (BEAKER) (test 24 mL/min/1.73 sq m ESTIMATED GFR IS NOT ekym=6196) ACCURATE CREATININE CLEARANCE IN PREDICTING GLOMERULAR FILTRATION RATE. ESTIMATED GFR IS NOT APPLICABLE FOR DIALYSIS PATIENTS. [id number] 17:43:00 Test Item Value Reference Range Comments PHOSPHORUS (BEAKER) (test guhk=092) 4.8 mg/dL 2.3-4.7 [id number] 17:43:00 Test Item Value Reference Range Comments MAGNESIUM (BEAKER) (test djbc=301) 2.4 mg/dL 1.6-2.6 [id number] 17:34:00 Test Item Value Reference Range Comments PARTIAL THROMBOPLASTIN TIME (BEAKER) (test 101.4 seconds 22.5-36.0 tnmk=246) BLOOD GAS, [id number] 17:23:00 Test Item Value Reference Range Comments PH ARTERIAL (BEAKER) (test wypy=467) 7.36 7.35-7.45 PCO2 ARTERIAL (BEAKER) (test sqtf=727) 60 mmHg 35-45 PO2 ARTERIAL (BEAKER) (test aglq=144) 82 mmHg 80-90 O2 SATURATION ARTERIAL (BEAKER) (test pewt=062) 95.1 % 96.0-97.0 HCO3 ARTERIAL (BEAKER) (test qfwf=952) 33 mmol/L 21-29 BASE EXCESS ARTERIAL (BEAKER) (test fclr=171) 6.0 mmol/L -2.0-3.0 PATIENT TEMPERATURE (BEAKER) (test bvfk=6780) 37.4 C FIO2 (BEAKER) (test lhgm=7293) 70.0 % GLUCOSE-STAT [id number] 17:20:00 Test Item Value Reference Range Comments GLUCOSE RANDOM (BEAKER) (test lycm=406) 106 mg/dL 70-110 POCT-GLUCOSE [id number] 16:32:00 Test Item Value Reference Range Comments POC-GLUCOSE METER (BEAKER) 115 mg/dL 70-110 TESTED AT [address] (test abxp=4770) [facility] [id number] VANCOMYCIN LEVEL, [id number] 16:10:00 Test Item Value Reference Range Comments VANCOMYCIN TROUGH (BEAKER) (test lubp=802) 17.0 ug/mL 10.0-20.0 POCT-GLUCOSE [id number] 15:32:00 Test Item Value Reference Range Comments POC-GLUCOSE METER (BEAKER) 119 mg/dL 70-110 TESTED AT [address] (test dioj=7929) [place] [id number] TROPONIN [id number] 13:14:00 Test Item Value Reference Range Comments TROPONIN I (BEAKER) (test uzbd=969) 81.57 ng/mL 0.00-0.03 Troponin I (TnI) levels [...] acute neurological disease, and persistent tachyarrhythmia.BASIC METABOLIC [id number] 12:49:00 Test Item Value Reference Range Comments SODIUM (BEAKER) (test 140 meq/L 136-145 udyf=342) POTASSIUM (BEAKER) (test 3.6 meq/L 3.5-5.1 Specimen slightly orpk=636) hemolyzed CHLORIDE (BEAKER) (test 104 meq/L 98-107 jehx=139) CO2 (BEAKER) (test 27 meq/L 22-29 nfda=982) BLOOD UREA NITROGEN 37 mg/dL 7-21 (BEAKER) (test idpa=981) CREATININE (BEAKER) (test 2.35 mg/dL 0.57-1.25 Specimen slightly kaat=081) hemolyzed GLUCOSE RANDOM (BEAKER) 192 mg/dL 70-105 (test qyau=237) CALCIUM (BEAKER) (test 8.1 mg/dL 8.4-10.2 nyjg=075) EGFR (BEAKER) (test 25 mL/min/1.73 sq m ESTIMATED GFR IS NOT wsiv=6243) ACCURATE CREATININE CLEARANCE IN PREDICTING GLOMERULAR FILTRATION RATE. ESTIMATED GFR IS NOT APPLICABLE FOR DIALYSIS PATIENTS. [id number] 12:46:00 Test Item Value Reference Range Comments MAGNESIUM (BEAKER) (test 2.2 mg/dL 1.6-2.6 Specimen slightly hemolyzed vukz=751) [id number] 12:46:00 Test Item Value Reference Range Comments PHOSPHORUS (BEAKER) (test 4.6 mg/dL 2.3-4.7 Specimen slightly hemolyzed rxdp=821) POCT-GLUCOSE [id number] 12:16:00 Test Item Value Reference Range Comments POC-GLUCOSE METER (BEAKER) 210 mg/dL 70-110 TESTED AT [address] (test dotf=2606) [place] [id number] POCT-GLUCOSE [id number] 12:16:00 Test Item Value Reference Range Comments POC-GLUCOSE METER (BEAKER) 247 mg/dL 70-110 TESTED AT [address] (test nmdr=7149) [place] [id number] POCT-GLUCOSE [id number] 12:16:00 Test Item Value Reference Range Comments POC-GLUCOSE METER (BEAKER) 174 mg/dL 70-110 TESTED AT [address] (test mprh=5274) [place] [id number] BLOOD GAS, [id number] 12:14:00 Test Item Value Reference Range Comments PH ARTERIAL (BEAKER) (test tfck=982) 7.36 7.35-7.45 PCO2 ARTERIAL (BEAKER) (test pjnp=231) 56 mmHg 35-45 PO2 ARTERIAL (BEAKER) (test eybx=081) 65 mmHg 80-90 O2 SATURATION ARTERIAL (BEAKER) (test frug=043) 90.4 % 96.0-97.0 HCO3 ARTERIAL (BEAKER) (test yifm=684) 31 mmol/L 21-29 BASE EXCESS ARTERIAL (BEAKER) (test bkts=645) 4.8 mmol/L -2.0-3.0 PATIENT TEMPERATURE (BEAKER) (test cooc=5016) 38.0 C FIO2 (BEAKER) (test fsha=1148) 60.0 % [id number] 10:58:00 Test Item Value Reference Range Comments PARTIAL THROMBOPLASTIN TIME (BEAKER) (test 99.0 seconds 22.5-36.0 phvf=504) RAD, CHEST, 1 VIEW, NON [id number] 08:30:00Reason for exam:->r/o pleural effusionShould this be [...] hospital Verified Date/Time: 07/20/2017 08:30:52 Reading Location: [facility] [facility] BLOOD GAS, [id number] 06 :37:00 Test Item Value Reference Range Comments PH ARTERIAL (BEAKER) (test ozcz=669) 7.38 7.35-7.45 PCO2 ARTERIAL (BEAKER) (test axfq=080) 50 mmHg 35-45 PO2 ARTERIAL (BEAKER) (test zmmm=653) 97 mmHg 80-90 O2 SATURATION ARTERIAL (BEAKER) (test jxso=187) 96.9 % 96.0-97.0 HCO3 ARTERIAL (BEAKER) (test rvwt=431) 28 mmol/L 21-29 BASE EXCESS ARTERIAL (BEAKER) (test utur=972) 2.7 mmol/L -2.0-3.0 PATIENT TEMPERATURE (BEAKER) (test lnhu=5625) 37.8 C FIO2 (BEAKER) (test lwyd=3606) 40.0 % POCT-GLUCOSE [id number] 06:15:00 Test Item Value Reference Range Comments POC-GLUCOSE METER (BEAKER) 114 mg/dL 70-110 TESTED AT [facility] [address] [place] [address] (test lhsi=5567) [facility] [address] POCT-GLUCOSE [id number] 06:15:00 Test Item Value Reference Range Comments POC-GLUCOSE METER (BEAKER) 140 mg/dL 70-110 TESTED AT [address] (test gjuw=1836) [facility] [address] POCT-GLUCOSE [id number] 05:23:00 Test Item Value Reference Range Comments POC-GLUCOSE METER (BEAKER) 77 mg/dL 70-110 TESTED AT [address] (test haao=2878) [facility] [address] CALCIUM, [id number] 04:34:00 Test Item Value Reference Range Comments CALCIUM IONIZED (BEAKER) (test ppjq=960) 1.14 mmol/L 1.12-1.27 PH, BLOOD (BEAKER) (test ifhn=0993) 7.34 BLOOD GAS, [id number] 04:32:00 Test Item Value Reference Range Comments PH ARTERIAL (BEAKER) (test diyh=642) 7.32 7.35-7.45 PCO2 ARTERIAL (BEAKER) (test yexn=645) 60 mmHg 35-45 PO2 ARTERIAL (BEAKER) (test svte=122) 92 mmHg 80-90 O2 SATURATION ARTERIAL (BEAKER) (test wqyu=525) 95.9 % 96.0-97.0 HCO3 ARTERIAL (BEAKER) (test cemm=200) 30 mmol/L 21-29 BASE EXCESS ARTERIAL (BEAKER) (test jfzs=463) 3.2 mmol/L -2.0-3.0 PATIENT TEMPERATURE (BEAKER) (test wihc=1452) 37.8 C FIO2 (BEAKER) (test tsvo=6263) 40.0 % COMPREHENSIVE METABOLIC [id number] 04:24:00 Test Item Value Reference Range Comments TOTAL PROTEIN (BEAKER) 6.5 gm/dL 6.0-8.3 (test mgsf=649) ALBUMIN (BEAKER) (test 3.4 g/dL 3.5-5.0 knzb=7412) ALKALINE PHOSPHATASE 47 U/L 40-150 (BEAKER) (test mbbk=806) BILIRUBIN TOTAL (BEAKER) 0.8 mg/dL 0.2-1.2 (test phwd=675) SODIUM (BEAKER) (test 142 meq/L 136-145 mcgb=457) POTASSIUM (BEAKER) (test 3.7 meq/L 3.5-5.1 qzcl=709) CHLORIDE (BEAKER) (test 103 meq/L 98-107 qcaw=155) CO2 (BEAKER) (test 29 meq/L 22-29 kgkm=115) BLOOD UREA NITROGEN 34 mg/dL 7-21 (BEAKER) (test zpuo=547) CREATININE (BEAKER) (test 2.44 mg/dL 0.57-1.25 oyen=198) GLUCOSE RANDOM (BEAKER) 128 mg/dL 70-105 (test xmfj=944) CALCIUM (BEAKER) (test 8.7 mg/dL 8.4-10.2 plpg=147) AST (SGOT) (BEAKER) (test 158 U/L 5-34 zycs=730) ALT (SGPT) (BEAKER) (test 63 U/L 6-55 rojv=586) EGFR (BEAKER) (test 24 mL/min/1.73 sq m ESTIMATED GFR IS NOT dopl=2432) ACCURATE CREATININE CLEARANCE IN PREDICTING GLOMERULAR FILTRATION RATE. ESTIMATED GFR IS NOT APPLICABLE FOR DIALYSIS PATIENTS. BASIC METABOLIC [id number] 04:24:00 Test Item Value Reference Range Comments SODIUM (BEAKER) (test 142 meq/L 136-145 icry=383) POTASSIUM (BEAKER) (test 3.7 meq/L 3.5-5.1 kffj=105) CHLORIDE (BEAKER) (test 103 meq/L 98-107 tqcp=830) CO2 (BEAKER) (test 29 meq/L 22-29 xtmy=673) BLOOD UREA NITROGEN 34 mg/dL 7-21 (BEAKER) (test pcwh=612) CREATININE (BEAKER) (test 2.44 mg/dL 0.57-1.25 uvjf=068) GLUCOSE RANDOM (BEAKER) 128 mg/dL 70-105 (test auzb=853) CALCIUM (BEAKER) (test 8.7 mg/dL 8.4-10.2 tzex=571) EGFR (BEAKER) (test 24 mL/min/1.73 sq m ESTIMATED GFR IS NOT bbps=3468) ACCURATE CREATININE CLEARANCE IN PREDICTING GLOMERULAR FILTRATION RATE. ESTIMATED GFR IS NOT APPLICABLE FOR DIALYSIS PATIENTS. [id number] 04:22:00 Test Item Value Reference Range Comments PHOSPHORUS (BEAKER) (test zfja=985) 5.2 mg/dL 2.3-4.7 [id number] 04:22:00 Test Item Value Reference Range Comments MAGNESIUM (BEAKER) (test fstx=911) 2.4 mg/dL 1.6-2.6 HEPATIC FUNCTION [id number] 04:22:00 Test Item Value Reference Range Comments TOTAL PROTEIN (BEAKER) (test thrq=308) 6.5 gm/dL 6.0-8.3 ALBUMIN (BEAKER) (test povg=6116) 3.4 g/dL 3.5-5.0 BILIRUBIN TOTAL (BEAKER) (test dysi=854) 0.8 mg/dL 0.2-1.2 BILIRUBIN DIRECT (BEAKER) (test hpie=945) 0.4 mg/dL 0.1-0.5 ALKALINE PHOSPHATASE (BEAKER) (test yihy=063) 47 U/L 40-150 AST (SGOT) (BEAKER) (test yceq=278) 158 U/L 5-34 ALT (SGPT) (BEAKER) (test sdal=551) 63 U/L 6-55 [id number] 04:12:00 Test Item Value Reference Range Comments PARTIAL THROMBOPLASTIN TIME (BEAKER) (test 36.8 seconds 22.5-36.0 kzzx=341) Prior to initiating heparinPOCT-GLUCOSE [id number] 04:05:00 Test Item Value Reference Range Comments POC-GLUCOSE METER (BEAKER) 134 mg/dL 70-110 TESTED AT [address] (test adqv=5361) [facility] [address] POCT-GLUCOSE [id number] 04:05:00 Test Item Value Reference Range Comments POC-GLUCOSE METER (BEAKER) 122 mg/dL 70-110 TESTED AT [address] (test kbst=5513) [facility] [address] POCT-GLUCOSE [id number] 04:05:00 Test Item Value Reference Range Comments POC-GLUCOSE METER (BEAKER) 201 mg/dL 70-110 TESTED AT [address] (test gdjr=4415) [facility] [address] CBC W/PLT COUNT & AUTO [id number] 04:02:00 Test Item Value Reference Range Comments WHITE BLOOD CELL COUNT (BEAKER) (test xqpi=221) 13.6 K/ L 3.5-10.5 RED BLOOD CELL COUNT (BEAKER) (test mggg=701) 3.18 M/ L 3.93-5.22 HEMOGLOBIN (BEAKER) (test dyen=292) 9.7 GM/DL 11.2-15.7 HEMATOCRIT (BEAKER) (test uocv=647) 31.0 % 34.1-44.9 MEAN CORPUSCULAR VOLUME (BEAKER) (test qjwu=375) 97.5 fL 79.4-94.8 MEAN CORPUSCULAR HEMOGLOBIN (BEAKER) (test 30.5 pg 25.6-32.2 jfni=042) MEAN CORPUSCULAR HEMOGLOBIN CONC (BEAKER) (test 31.3 GM/DL 32.2-35.5 drqt=050) RED CELL DISTRIBUTION WIDTH (BEAKER) (test 13.3 % 11.7-14.4 pvaj=709) PLATELET COUNT (BEAKER) (test vkec=104) 167 K/CU MM 150-450 MEAN PLATELET VOLUME (BEAKER) (test xdeb=815) 11.0 fL 9.4-12.3 NUCLEATED RED BLOOD CELLS (BEAKER) (test 0 /100 WBC 0-0 uvre=524) NEUTROPHILS RELATIVE PERCENT (BEAKER) (test 85 % obgy=029) LYMPHOCYTES RELATIVE PERCENT (BEAKER) (test 7 % beyg=527) MONOCYTES RELATIVE PERCENT (BEAKER) (test 7 % teln=619) EOSINOPHILS RELATIVE PERCENT (BEAKER) (test 0 % ycil=128) BASOPHILS RELATIVE PERCENT (BEAKER) (test 0 % unko=100) NEUTROPHILS ABSOLUTE COUNT (BEAKER) (test 11.61 K/ L 1.56-6.13 cjjr=362) LYMPHOCYTES ABSOLUTE COUNT (BEAKER) (test 0.98 K/ L 1.18-3.74 pkhn=666) MONOCYTES ABSOLUTE COUNT (BEAKER) (test 0.92 K/ L 0.24-0.36 ffum=125) EOSINOPHILS ABSOLUTE COUNT (BEAKER) (test 0.00 K/ L 0.04-0.36 iane=461) BASOPHILS ABSOLUTE COUNT (BEAKER) (test 0.02 K/ L 0.01-0.08 fooe=594) IMMATURE GRANULOCYTES-RELATIVE PERCENT (BEAKER) 1 % 0-1 (test fywj=2597) [id number] 02:01:00 Test Item Value Reference Range Comments PARTIAL THROMBOPLASTIN TIME (BEAKER) (test 32.5 seconds 22.5-36.0 sokw=979) BLOOD GAS, [id number] 01:09:00 Test Item Value Reference Range Comments PH ARTERIAL (BEAKER) (test iqxv=357) 7.35 7.35-7.45 PCO2 ARTERIAL (BEAKER) (test wqfd=972) 50 mmHg 35-45 PO2 ARTERIAL (BEAKER) (test wfat=795) 86 mmHg 80-90 O2 SATURATION ARTERIAL (BEAKER) (test rrge=473) 95.3 % 96.0-97.0 HCO3 ARTERIAL (BEAKER) (test knux=289) 27 mmol/L 21-29 BASE EXCESS ARTERIAL (BEAKER) (test badl=904) 1.0 mmol/L -2.0-3.0 PATIENT TEMPERATURE (BEAKER) (test eljp=5996) 38.2 C FIO2 (BEAKER) (test dwac=3338) 40.0 % POCT-GLUCOSE [id number] 01:04:00 Test Item Value Reference Range Comments POC-GLUCOSE METER (BEAKER) 199 mg/dL 70-110 TESTED AT [facility] [address] [facility] (test ffux=4165) [facility] [address] [id number] 00:14:00 Test Item Value Reference Range Comments MAGNESIUM (BEAKER) (test 2.3 mg/dL 1.6-2.6 Specimen slightly hemolyzed woxd=524) [id number] 00:14:00 Test Item Value Reference Range Comments POTASSIUM (BEAKER) (test 3.8 meq/L 3.5-5.1 Specimen slightly hemolyzed wojs=633) CALCIUM, [id number] 00:11:00 Test Item Value Reference Range Comments CALCIUM IONIZED (BEAKER) (test tqcx=761) 1.06 mmol/L 1.12-1.27 PH, BLOOD (BEAKER) (test ynzn=7204) 7.35 BLOOD GAS, [id number] 00:11:00 Test Item Value Reference Range Comments PH ARTERIAL (BEAKER) (test blzv=713) 7.33 7.35-7.45 PCO2 ARTERIAL (BEAKER) (test bpcz=136) 53 mmHg 35-45 PO2 ARTERIAL (BEAKER) (test hzxb=613) 58 mmHg 80-90 O2 SATURATION ARTERIAL (BEAKER) (test mrla=249) 86.1 % 96.0-97.0 HCO3 ARTERIAL (BEAKER) (test gxcs=593) 27 mmol/L 21-29 BASE EXCESS ARTERIAL (BEAKER) (test rkoh=246) 0.9 mmol/L -2.0-3.0 PATIENT TEMPERATURE (BEAKER) (test ldbr=9855) 38.0 C FIO2 (BEAKER) (test mjfa=1259) 40.0 % Post extubation ABGPOCT-GLUCOSE [id number] 23:58:00 Test Item Value Reference Range Comments POC-GLUCOSE METER (BEAKER) 202 mg/dL 70-110 TESTED AT [address] (test lhus=3071) [place] [address] POCT-GLUCOSE [id number] 23:58:00 Test Item Value Reference Range Comments POC-GLUCOSE METER (BEAKER) 86 mg/dL 70-110 TESTED AT [address] (test ldds=6166) [place] [id number] BASIC METABOLIC [id number] 22:18:00 Test Item Value Reference Range Comments SODIUM (BEAKER) (test 141 meq/L 136-145 hhef=288) POTASSIUM (BEAKER) (test 3.6 meq/L 3.5-5.1 Specimen slightly rian=941) hemolyzed CHLORIDE (BEAKER) (test 105 meq/L 98-107 uprr=246) CO2 (BEAKER) (test 26 meq/L 22-29 drkc=822) BLOOD UREA NITROGEN 31 mg/dL 7-21 (BEAKER) (test oayh=729) CREATININE (BEAKER) (test 2.09 mg/dL 0.57-1.25 Specimen slightly gobc=759) hemolyzed GLUCOSE RANDOM (BEAKER) 81 mg/dL 70-105 (test gcfq=943) CALCIUM (BEAKER) (test 8.3 mg/dL 8.4-10.2 iuhq=041) EGFR (BEAKER) (test 28 mL/min/1.73 sq m ESTIMATED GFR IS NOT mzbw=5722) ACCURATE CREATININE CLEARANCE IN PREDICTING GLOMERULAR FILTRATION RATE. ESTIMATED GFR IS NOT APPLICABLE FOR DIALYSIS PATIENTS. [id number] 22:17:00 Test Item Value Reference Range Comments PHOSPHORUS (BEAKER) (test 5.1 mg/dL 2.3-4.7 Specimen slightly hemolyzed lkmf=526) POCT-GLUCOSE [id number] 20:57:00 Test Item Value Reference Range Comments POC-GLUCOSE METER (BEAKER) 90 mg/dL 70-110 TESTED AT [facility] [address] [facility] (test mffy=1344) [facility] [address] BLOOD GAS, [id number] 20:52:00 Test Item Value Reference Range Comments PH ARTERIAL (BEAKER) (test qwzn=642) 7.35 7.35-7.45 PCO2 ARTERIAL (BEAKER) (test ahew=017) 49 mmHg 35-45 PO2 ARTERIAL (BEAKER) (test fltf=605) 100 mmHg 80-90 O2 SATURATION ARTERIAL (BEAKER) (test tmig=693) 97.0 % 96.0-97.0 HCO3 ARTERIAL (BEAKER) (test svrq=581) 26 mmol/L 21-29 BASE EXCESS ARTERIAL (BEAKER) (test jczp=648) 0.3 mmol/L -2.0-3.0 PATIENT TEMPERATURE (BEAKER) (test fsrp=5195) 37.7 C FIO2 (BEAKER) (test bwvs=7322) 40.0 % [id number] 18:57:00 Test Item Value Reference Range Comments PARTIAL THROMBOPLASTIN TIME (BEAKER) (test 70.7 seconds 22.5-36.0 wdam=892) BLOOD GAS, [id number] 16:52:00 Test Item Value Reference Range Comments PH ARTERIAL (BEAKER) (test mrfz=430) 7.37 7.35-7.45 PCO2 ARTERIAL (BEAKER) (test mcsw=671) 47 mmHg 35-45 PO2 ARTERIAL (BEAKER) (test vrlh=628) 117 mmHg 80-90 O2 SATURATION ARTERIAL (BEAKER) (test rvzj=435) 98.0 % 96.0-97.0 HCO3 ARTERIAL (BEAKER) (test meul=627) 26 mmol/L 21-29 BASE EXCESS ARTERIAL (BEAKER) (test bslq=668) 0.5 mmol/L -2.0-3.0 PATIENT TEMPERATURE (BEAKER) (test wwag=1015) 37.7 C FIO2 (BEAKER) (test pwym=7592) 60.0 % GLUCOSE-STAT [id number] 16:52:00 Test Item Value Reference Range Comments GLUCOSE RANDOM (BEAKER) (test wkcf=825) 149 mg/dL 70-110 [id number] 16:22:00 Test Item Value Reference Range Comments PARTIAL THROMBOPLASTIN TIME (BEAKER) (test 197.7 seconds 22.5-36.0 uvmp=325) PROTHROMBIN [id number] 16:15:00 Test Item Value Reference Range Comments PROTIME (BEAKER) (test xsht=494) 16.4 seconds 11.7-14.7 INR (BEAKER) (test olqa=159) 1.3 <=5.9 RECOMMENDED COUMADIN/WARFARIN INR THERAPY RANGESSTANDARD DOSE: 2.0 - 3.0 Includes: PROPHYLAXIS forvenous thrombosis, systemic embolization; TREATMENT for venous thrombosis and/or pulmonary embolus.HIGH RISK: Target INR is 2.5-3.5 for patients with mechanical heart valves.[id number] 16:15:00 Test Item Value Reference Range Comments FIBRINOGEN LEVEL (BEAKER) (test dgmo=539) 303 mg/dl 225-434 [id number] 16:15:00 Test Item Value Reference Range Comments MAGNESIUM (BEAKER) (test 3.0 mg/dL 1.6-2.6 Specimen moderately hemolyzed gsnr=342) [id number] 16:15:00 Test Item Value Reference Range Comments PHOSPHORUS (BEAKER) (test 6.6 mg/dL 2.3-4.7 Specimen moderately hemolyzed ejuq=024) BASIC METABOLIC [id number] 16:15:00 Test Item Value Reference Range Comments SODIUM (BEAKER) (test 144 meq/L 136-145 ihww=694) POTASSIUM (BEAKER) (test 4.1 meq/L 3.5-5.1 Specimen moderately qwjx=121) hemolyzed CHLORIDE (BEAKER) (test 106 meq/L 98-107 ecxa=022) CO2 (BEAKER) (test 27 meq/L 22-29 zhkn=219) BLOOD UREA NITROGEN 30 mg/dL 7-21 (BEAKER) (test xnos=717) CREATININE (BEAKER) (test 1.99 mg/dL 0.57-1.25 Specimen moderately pcox=889) hemolyzed GLUCOSE RANDOM (BEAKER) 165 mg/dL 70-105 (test qfzc=677) CALCIUM (BEAKER) (test 8.6 mg/dL 8.4-10.2 ezek=580) EGFR (BEAKER) (test 30 mL/min/1.73 sq m ESTIMATED GFR IS NOT qfrb=4413) ACCURATE CREATININE CLEARANCE IN PREDICTING GLOMERULAR FILTRATION RATE. ESTIMATED GFR IS NOT APPLICABLE FOR DIALYSIS PATIENTS. CBC (HEMOGRAM ONLY)[id number] 16:13:00 Test Item Value Reference Range Comments WHITE BLOOD CELL COUNT (BEAKER) (test tias=155) 14.5 K/ L 3.5-10.5 RED BLOOD CELL COUNT (BEAKER) (test tkmv=019) 3.55 M/ L 3.93-5.22 HEMOGLOBIN (BEAKER) (test fytq=100) 10.7 GM/DL 11.2-15.7 HEMATOCRIT (BEAKER) (test mngy=516) 34.9 % 34.1-44.9 MEAN CORPUSCULAR VOLUME (BEAKER) (test xcbs=844) 98.3 fL 79.4-94.8 MEAN CORPUSCULAR HEMOGLOBIN (BEAKER) (test 30.1 pg 25.6-32.2 dljy=334) MEAN CORPUSCULAR HEMOGLOBIN CONC (BEAKER) (test 30.7 GM/DL 32.2-35.5 dbkw=375) RED CELL DISTRIBUTION WIDTH (BEAKER) (test 13.3 % 11.7-14.4 bjdz=292) PLATELET COUNT (BEAKER) (test dzwq=833) 235 K/CU MM 150-450 MEAN PLATELET VOLUME (BEAKER) (test cufn=782) 11.0 fL 9.4-12.3 NUCLEATED RED BLOOD CELLS (BEAKER) (test 0 /100 WBC 0-0 sydk=003) LACTIC ACID, ARTERIAL, WHOLE [id number] 16:12:00 Test Item Value Reference Range Comments LACTATE BLOOD ARTERIAL (2) 2.0 mmol/L 0.5-2.2 Specimen slightly hemolyzed (BEAKER) (test cufh=2429) Effective 08/06/2015: Units/Reference Range ChangeNew: 0.5-2.2 mmol/L Previous: 5 -20 mg/dLCALCIUM, [id number] 15:54:00 Test Item Value Reference Range Comments CALCIUM IONIZED (BEAKER) (test wyyp=869) 1.14 mmol/L 1.12-1.27 PH, BLOOD (BEAKER) (test cxca=0332) 7.24 SODIUM NA-STAT [id number] 15:54:00 Test Item Value Reference Range Comments SODIUM (BEAKER) (test ejiu=530) 143 meq/L 135-148 POTASSIUM-STAT [id number] 15:54:00 Test Item Value Reference Range Comments POTASSIUM (BEAKER) (test depj=286) 3.9 meq/L 3.6-5.5 BLOOD GAS, [id number] 15:54:00 Test Item Value Reference Range Comments PH ARTERIAL (BEAKER) (test rgwd=297) 7.26 7.35-7.45 PCO2 ARTERIAL (BEAKER) (test difh=849) 69 mmHg 35-45 PO2 ARTERIAL (BEAKER) (test fooi=760) 74 mmHg 80-90 O2 SATURATION ARTERIAL (BEAKER) (test pbfu=398) 93.4 % 96.0-97.0 HCO3 ARTERIAL (BEAKER) (test brsa=412) 31 mmol/L 21-29 BASE EXCESS ARTERIAL (BEAKER) (test klha=495) 2.0 mmol/L -2.0-3.0 PATIENT TEMPERATURE (BEAKER) (test imul=0460) 35.6 C FIO2 (BEAKER) (test bipj=4828) 50.0 % GLUCOSE-STAT [id number] 15:54:00 Test Item Value Reference Range Comments GLUCOSE RANDOM (BEAKER) (test esvf=454) 169 mg/dL 70-110 HGB/HCT (H&H) - STAT [id number] 15:54:00 Test Item Value Reference Range Comments HEMOGLOBIN (BEAKER) (test rahh=129) 11.7 g/dL 12.0-15.0 HEMATOCRIT (BEAKER) (test duso=876) 34.0 % 36.0-45.0 RAD, CHEST, 1 VIEW, NON [id number] 15:49:00Reason for exam:->sp PCI/ intubatedFINAL REPORT TECHNIQUE: [...] MDReport Verified Date/Time: 07/19/2017 15:49:37 Reading Location: [facility] RadiologyReading Room [id number] 14:13:00 Test Item Value Reference Range Comments ACTIVATED CLOTTING TIME 131 sec TESTED AT [address] ([facility]) (test wpeg=865) [place] [id number] TROPONIN [id number] 12:32:00 Test Item Value Reference Range Comments TROPONIN I (BEAKER) (test oruo=618) 119.79 ng/mL 0.00-0.03 Troponin I (TnI) levels [...] and persistent tachyarrhythmia.CREATINE KINASE (CK), TOTAL AND [id number] 12:26:00 Test Item Value Reference Range Comments CREATINE KINASE TOTAL (BEAKER) (test wpmp=848) 2405 U/L 29-200 CREATINE KINASE-MB (BEAKER) (test lefw=928) 65.6 ng/mL 0.0-6.6 CREATINE KINASE-MB INDEX (BEAKER) (test nbgi=993) 2.7 % CK-MB Reference Range:<6.7 Normal6.7-10.0 Borderline>10.0 AbnormalPOCT-GLUCOSE [id number] 12:20:00 Test Item Value Reference Range Comments POC-GLUCOSE METER ([facility]) 183 mg/dL 70-110 TESTED AT [address] (test yagr=4884) [facility] [address] [id number] 12:03:00 Test Item Value Reference Range Comments MAGNESIUM (BEAKER) (test kppt=119) 2.8 mg/dL 1.6-2.6 [id number] 12:03:00 Test Item Value Reference Range Comments PHOSPHORUS (BEAKER) (test cwjk=153) 5.3 mg/dL 2.3-4.7 BASIC METABOLIC [id number] 12:03:00 Test Item Value Reference Range Comments SODIUM (BEAKER) (test 143 meq/L 136-145 uvtk=076) POTASSIUM (BEAKER) (test 3.8 meq/L 3.5-5.1 kmbe=515) CHLORIDE (BEAKER) (test 106 meq/L 98-107 efzz=427) CO2 (BEAKER) (test 27 meq/L 22-29 tukb=933) BLOOD UREA NITROGEN 29 mg/dL 7-21 (BEAKER) (test bdim=677) CREATININE (BEAKER) (test 1.92 mg/dL 0.57-1.25 rptw=223) GLUCOSE RANDOM (BEAKER) 188 mg/dL 70-105 (test tuwk=929) CALCIUM (BEAKER) (test 8.7 mg/dL 8.4-10.2 lgtq=947) EGFR (BEAKER) (test 31 mL/min/1.73 sq m ESTIMATED GFR IS NOT tkxr=2968) ACCURATE CREATININE CLEARANCE IN PREDICTING GLOMERULAR FILTRATION RATE. ESTIMATED GFR IS NOT APPLICABLE FOR DIALYSIS PATIENTS. POCT-GLUCOSE [id number] 11:19:00 Test Item Value Reference Range Comments POC-GLUCOSE METER (BEAKER) 190 mg/dL 70-110 TESTED AT [address] (test vewg=7564) [facility] [address] POCT-GLUCOSE [id number] 10:12:00 Test Item Value Reference Range Comments POC-GLUCOSE METER (BEAKER) 197 mg/dL 70-110 TESTED AT [address] (test zsov=8262) [facility] [address] POCT-GLUCOSE [id number] 09:21:00 Test Item Value Reference Range Comments POC-GLUCOSE METER (BEAKER) 221 mg/dL 70-110 TESTED AT [address] (test mxre=7444) [facility] [address] LACTIC ACID, ARTERIAL, WHOLE [id number] 09:19:00 Test Item Value Reference Range Comments LACTATE BLOOD ARTERIAL (2) (BEAKER) (test 2.4 mmol/L 0.5-2.2 nflp=5944) Effective 08/06/2015: Units/Reference Range ChangeNew: 0.5-2.2 mmol/L Previous: 5 -20 mg/dLPROTHROMBIN [id number] 08:44:00 Test Item Value Reference Range Comments PROTIME (BEAKER) (test ukzs=595) 14.4 seconds 11.7-14.7 INR (BEAKER) (test ifdq=195) 1.1 <=5.9 RECOMMENDED COUMADIN/WARFARIN INR THERAPY RANGESSTANDARD DOSE: 2.0 - 3.0 Includes: PROPHYLAXIS forvenous thrombosis, systemic embolization; TREATMENT for venous thrombosis and/or pulmonary embolus.HIGH RISK: Target INR is 2.5-3.5 for patients with mechanical heart valves.[id number] 08:44:00 Test Item Value Reference Range Comments FIBRINOGEN LEVEL (BEAKER) (test ofto=178) 367 mg/dl 225-434 [id number] 08:44:00 Test Item Value Reference Range Comments PARTIAL THROMBOPLASTIN TIME (BEAKER) (test 30.0 seconds 22.5-36.0 wzdz=001) POCT-GLUCOSE [id number] 07:52:00 Test Item Value Reference Range Comments POC-GLUCOSE METER (BEAKER) 215 mg/dL 70-110 TESTED AT [facility] [address] [facility] (test ults=5310) [facility] [address] [address], CHEST, WITHOUT [id number] 07:50:00KEEP PATIENT ON CT TABLE. CALL RADIOLOGIST [...] Verified Date /Time: 07/19/2017 07:50:43 Reading Location: [facility] Diagnostic Imaging Reading Room - [place] [address] Electronically signed by: LYNNETTE CASTRO MD on 07:50 AMPOCT-GLUCOSE [id number] 07:37:00 Test Item Value Reference Range Comments POC-GLUCOSE METER (BEAKER) 225 mg/dL 70-110 TESTED AT [address] (test rgmt=7599) [facility] [address] RAD, CHEST, 1 VIEW, NON [id number] 04:04:00Reason for exam:->v tach/ iabpShould this be [...] MDReport Verified Date/Time: 07/19/2017 04:04:19 Reading Location: [address] Ortho Consult Reading Room [id number] 03:59:00 Test Item Value Reference Range Comments PHOSPHORUS (BEAKER) (test chdd=471) 4.4 mg/dL 2.3-4.7 [id number] 03:59:00 Test Item Value Reference Range Comments MAGNESIUM (BEAKER) (test sezi=007) 2.5 mg/dL 1.6-2.6 BASIC METABOLIC [id number] 03:59:00 Test Item Value Reference Range Comments SODIUM (BEAKER) (test 145 meq/L 136-145 qqzq=024) POTASSIUM (BEAKER) (test 3.6 meq/L 3.5-5.1 evtd=765) CHLORIDE (BEAKER) (test 106 meq/L 98-107 ivhy=459) CO2 (BEAKER) (test 25 meq/L 22-29 nivg=253) BLOOD UREA NITROGEN 28 mg/dL 7-21 (BEAKER) (test avft=789) CREATININE (BEAKER) (test 1.93 mg/dL 0.57-1.25 jxyp=686) GLUCOSE RANDOM (BEAKER) 216 mg/dL 70-105 (test uarn=631) CALCIUM (BEAKER) (test 9.0 mg/dL 8.4-10.2 kmot=032) EGFR (BEAKER) (test 31 mL/min/1.73 sq m ESTIMATED GFR IS NOT iwkn=2608) ACCURATE CREATININE CLEARANCE IN PREDICTING GLOMERULAR FILTRATION RATE. ESTIMATED GFR IS NOT APPLICABLE FOR DIALYSIS PATIENTS. B-TYPE NATRIURETIC FACTOR (BNP)2017-07-19 03:10:00 Test Item Value Reference Range Comments B-TYPE NATRIURETIC PEPTIDE (BEAKER) (test 2662 pg/mL 0-100 ccjl=607) HEPATIC FUNCTION [id number] 03:04:00 Test Item Value Reference Range Comments TOTAL PROTEIN (BEAKER) (test zsqv=760) 6.6 gm/dL 6.0-8.3 ALBUMIN (BEAKER) (test jbhj=2236) 3.5 g/dL 3.5-5.0 BILIRUBIN TOTAL (BEAKER) (test kstv=318) 0.4 mg/dL 0.2-1.2 BILIRUBIN DIRECT (BEAKER) (test nhfd=146) 0.2 mg/dL 0.1-0.5 ALKALINE PHOSPHATASE (BEAKER) (test zlqb=236) 57 U/L 40-150 AST (SGOT) (BEAKER) (test kpnj=870) 359 U/L 5-34 ALT (SGPT) (BEAKER) (test tnwu=943) 99 U/L 6-55 CREATINE KINASE (CK)2017-07-19 03:04:00 Test Item Value Reference Range Comments CREATINE KINASE TOTAL (BEAKER) (test suwv=035) 2888 U/L 29-200 CBC W/PLT COUNT & AUTO [id number] 02:56:00 Test Item Value Reference Range Comments WHITE BLOOD CELL COUNT (BEAKER) (test rdjh=861) 19.0 K/ L 3.5-10.5 RED BLOOD CELL COUNT (BEAKER) (test izea=910) 3.69 M/ L 3.93-5.22 HEMOGLOBIN (BEAKER) (test mpzy=023) 11.2 GM/DL 11.2-15.7 HEMATOCRIT (BEAKER) (test fmlh=784) 35.3 % 34.1-44.9 MEAN CORPUSCULAR VOLUME (BEAKER) (test wvxx=473) 95.7 fL 79.4-94.8 MEAN CORPUSCULAR HEMOGLOBIN (BEAKER) (test 30.4 pg 25.6-32.2 blge=664) MEAN CORPUSCULAR HEMOGLOBIN CONC (BEAKER) (test 31.7 GM/DL 32.2-35.5 ibgs=935) RED CELL DISTRIBUTION WIDTH (BEAKER) (test 13.1 % 11.7-14.4 mafi=317) PLATELET COUNT (BEAKER) (test gjtj=946) 253 K/CU MM 150-450 MEAN PLATELET VOLUME (BEAKER) (test vhpu=689) 10.0 fL 9.4-12.3 NUCLEATED RED BLOOD CELLS (BEAKER) (test 0 /100 WBC 0-0 houc=869) NEUTROPHILS RELATIVE PERCENT (BEAKER) (test 86 % mulu=312) LYMPHOCYTES RELATIVE PERCENT (BEAKER) (test 6 % nxpr=053) MONOCYTES RELATIVE PERCENT (BEAKER) (test 7 % rlyv=706) EOSINOPHILS RELATIVE PERCENT (BEAKER) (test 0 % esql=639) BASOPHILS RELATIVE PERCENT (BEAKER) (test 0 % uftv=447) NEUTROPHILS ABSOLUTE COUNT (BEAKER) (test 16.34 K/ L 1.56-6.13 sorr=223) LYMPHOCYTES ABSOLUTE COUNT (BEAKER) (test 1.15 K/ L 1.18-3.74 ysva=144) MONOCYTES ABSOLUTE COUNT (BEAKER) (test 1.39 K/ L 0.24-0.36 rmwg=248) EOSINOPHILS ABSOLUTE COUNT (BEAKER) (test 0.00 K/ L 0.04-0.36 jwrs=702) BASOPHILS ABSOLUTE COUNT (BEAKER) (test 0.02 K/ L 0.01-0.08 cbcc=618) IMMATURE GRANULOCYTES-RELATIVE PERCENT (BEAKER) 0 % 0-1 (test vsbz=7259) CALCIUM, [id number] 02:49:00 Test Item Value Reference Range Comments CALCIUM IONIZED (BEAKER) (test byfv=817) 1.14 mmol/L 1.12-1.27 PH, BLOOD (BEAKER) (test fver=5976) 7.36 CBC (HEMOGRAM ONLY)2017-07-19 02:48:00 Test Item Value Reference Range Comments WHITE BLOOD CELL COUNT (BEAKER) (test uggc=192) 19.0 K/ L 3.5-10.5 RED BLOOD CELL COUNT (BEAKER) (test rfps=052) 3.69 M/ L 3.93-5.22 HEMOGLOBIN (BEAKER) (test jzia=020) 11.2 GM/DL 11.2-15.7 HEMATOCRIT (BEAKER) (test fnvy=015) 35.3 % 34.1-44.9 MEAN CORPUSCULAR VOLUME (BEAKER) (test uavf=855) 95.7 fL 79.4-94.8 MEAN CORPUSCULAR HEMOGLOBIN (BEAKER) (test 30.4 pg 25.6-32.2 togp=783) MEAN CORPUSCULAR HEMOGLOBIN CONC (BEAKER) (test 31.7 GM/DL 32.2-35.5 nyvw=477) RED CELL DISTRIBUTION WIDTH (BEAKER) (test 13.1 % 11.7-14.4 yrij=397) PLATELET COUNT (BEAKER) (test wijh=672) 253 K/CU MM 150-450 MEAN PLATELET VOLUME (BEAKER) (test rjlf=677) 10.0 fL 9.4-12.3 NUCLEATED RED BLOOD CELLS (BEAKER) (test 0 /100 WBC 0-0 rnpy=847) BLOOD GAS, [id number] 02:48:00 Test Item Value Reference Range Comments PH ARTERIAL (BEAKER) (test cgdo=991) 7.35 7.35-7.45 PCO2 ARTERIAL (BEAKER) (test nazm=747) 55 mmHg 35-45 PO2 ARTERIAL (BEAKER) (test xsnq=094) 73 mmHg 80-90 O2 SATURATION ARTERIAL (BEAKER) (test fwdy=409) 93.3 % 96.0-97.0 HCO3 ARTERIAL (BEAKER) (test bsqo=971) 30 mmol/L 21-29 BASE EXCESS ARTERIAL (BEAKER) (test busj=694) 3.1 mmol/L -2.0-3.0 PATIENT TEMPERATURE (BEAKER) (test dedx=2758) 37.5 C FIO2 (BEAKER) (test taig=3995) 40.0 % POCT-GLUCOSE [id number] 02:21:00 Test Item Value Reference Range Comments POC-GLUCOSE METER (BEAKER) 184 mg/dL 70-110 TESTED AT [address] (test pytl=2052) [facility] [address] POCT-GLUCOSE [id number] 01:15:00 Test Item Value Reference Range Comments POC-GLUCOSE METER (BEAKER) 173 mg/dL 70-110 TESTED AT [address] (test ywvm=4193) [facility] [address] [id number] 00:55:00 Test Item Value Reference Range Comments PHOSPHORUS (BEAKER) (test qsqk=022) 3.3 mg/dL 2.3-4.7 [id number] 00:55:00 Test Item Value Reference Range Comments MAGNESIUM (BEAKER) (test ogla=204) 1.8 mg/dL 1.6-2.6 BASIC METABOLIC [id number] 00:55:00 Test Item Value Reference Range Comments SODIUM (BEAKER) (test 143 meq/L 136-145 jpqo=776) POTASSIUM (BEAKER) (test 3.9 meq/L 3.5-5.1 kklt=714) CHLORIDE (BEAKER) (test 106 meq/L 98-107 xjxz=526) CO2 (BEAKER) (test 27 meq/L 22-29 adwd=799) BLOOD UREA NITROGEN 27 mg/dL 7-21 (BEAKER) (test cdii=244) CREATININE (BEAKER) (test 1.90 mg/dL 0.57-1.25 djgh=545) GLUCOSE RANDOM (BEAKER) 181 mg/dL 70-105 (test bpoe=881) CALCIUM (BEAKER) (test 8.9 mg/dL 8.4-10.2 gqxm=582) EGFR (BEAKER) (test 32 mL/min/1.73 sq m ESTIMATED GFR IS NOT wnuy=6884) ACCURATE CREATININE CLEARANCE IN PREDICTING GLOMERULAR FILTRATION RATE. ESTIMATED GFR IS NOT APPLICABLE FOR DIALYSIS PATIENTS. POCT-GLUCOSE [id number] 00:11:00 Test Item Value Reference Range Comments POC-GLUCOSE METER (BEAKER) 177 mg/dL 70-110 TESTED AT [address] (test jtqr=2971) [place] [id number] POCT-GLUCOSE [id number] 23:25:00 Test Item Value Reference Range Comments POC-GLUCOSE METER (BEAKER) 206 mg/dL 70-110 TESTED AT [address] (test yksx=0376) [place] [id number] POCT-GLUCOSE [id number] 22:19:00 Test Item Value Reference Range Comments POC-GLUCOSE METER (BEAKER) 243 mg/dL 70-110 TESTED AT [address] (test oajk=2046) [facility] [address] POCT-GLUCOSE [id number] 21:37:00 Test Item Value Reference Range Comments POC-GLUCOSE METER (BEAKER) 235 mg/dL 70-110 TESTED AT [address] (test izmo=0642) [place] [address] POCT-GLUCOSE [id number] 20:04:00 Test Item Value Reference Range Comments POC-GLUCOSE METER (BEAKER) 216 mg/dL 70-110 TESTED AT [address] (test omcw=6328) [facility] [address] POCT-GLUCOSE [id number] 18:40:00 Test Item Value Reference Range Comments POC-GLUCOSE METER (BEAKER) 271 mg/dL 70-110 TESTED AT [facility] [address] (test fxds=7703) [facility] [address] [id number] 18:32:00 Test Item Value Reference Range Comments MAGNESIUM (BEAKER) (test 1.9 mg/dL 1.6-2.6 Specimen slightly hemolyzed ybru=415) [id number] 18:32:00 Test Item Value Reference Range Comments PHOSPHORUS (BEAKER) (test 3.1 mg/dL 2.3-4.7 Specimen slightly hemolyzed whut=495) BASIC METABOLIC [id number] 18:32:00 Test Item Value Reference Range Comments SODIUM (BEAKER) (test 142 meq/L 136-145 ucos=957) POTASSIUM (BEAKER) (test 3.9 meq/L 3.5-5.1 Specimen slightly pdmg=563) hemolyzed CHLORIDE (BEAKER) (test 107 meq/L 98-107 bxoo=746) CO2 (BEAKER) (test 24 meq/L 22-29 migk=099) BLOOD UREA NITROGEN 22 mg/dL 7-21 (BEAKER) (test full=708) CREATININE (BEAKER) (test 1.55 mg/dL 0.57-1.25 Specimen slightly tzal=663) hemolyzed GLUCOSE RANDOM (BEAKER) 242 mg/dL 70-105 (test rgju=933) CALCIUM (BEAKER) (test 8.8 mg/dL 8.4-10.2 wicr=807) EGFR (BEAKER) (test 40 mL/min/1.73 sq m ESTIMATED GFR IS NOT ohho=1336) ACCURATE CREATININE CLEARANCE IN PREDICTING GLOMERULAR FILTRATION RATE. ESTIMATED GFR IS NOT APPLICABLE FOR DIALYSIS PATIENTS. BLOOD GAS, [id number] 18:24:00 Test Item Value Reference Range Comments PH ARTERIAL (BEAKER) (test lxxd=898) 7.34 7.35-7.45 PCO2 ARTERIAL (BEAKER) (test mdhf=856) 51 mmHg 35-45 PO2 ARTERIAL (BEAKER) (test kklt=605) 57 mmHg 80-90 O2 SATURATION ARTERIAL (BEAKER) (test ztmk=393) 87.5 % 96.0-97.0 HCO3 ARTERIAL (BEAKER) (test gckv=108) 27 mmol/L 21-29 BASE EXCESS ARTERIAL (BEAKER) (test bmjd=587) 1.0 mmol/L -2.0-3.0 PATIENT TEMPERATURE (BEAKER) (test eatp=5361) 37.2 C FIO2 (BEAKER) (test pnkh=7579) 40.0 % POCT-GLUCOSE [id number] 17:14:00 Test Item Value Reference Range Comments POC-GLUCOSE METER (BEAKER) 299 mg/dL 70-110 TESTED AT [facility] [address] (test tcnb=6524) [facility] [address] LACTIC ACID, ARTERIAL, WHOLE [id number] 16:37:00 Test Item Value Reference Range Comments LACTATE BLOOD ARTERIAL (2) 2.9 mmol/L 0.5-2.2 Specimen slightly hemolyzed (BEAKER) (test lnmd=3385) Effective 08/06/2015: Units/Reference Range ChangeNew: 0.5-2.2 mmol/L Previous: 5 -20 mg/[id number] 15:45:00 Test Item Value Reference Range Comments GLUCOSE RANDOM (BEAKER) (test igxk=731) 439 mg/dL 70-105 If last glucose was less than 500, may do bedside glucose instead of serum glucose.POCT-GLUCOSE [id number] 15:21:00 Test Item Value Reference Range Comments POC-GLUCOSE METER (BEAKER) 374 mg/dL 70-110 Notified PAULA BERGER/TESTED AT [facility] (test fkiw=6947) [address] [facility] [address] [id number] 15:14:00 Test Item Value Reference Range Comments POTASSIUM (BEAKER) (test etuu=188) 4.0 meq/L 3.5-5.1 If last glucose was less than 500, may do bedside glucose instead of serum glucose.URINALYSIS W/ [id number] 15:03:00 Test Item Value Reference Range Comments COLOR (BEAKER) (test uybx=947) Yellow CLARITY (BEAKER) (test pkub=485) Clear SPECIFIC GRAVITY UA (BEAKER) (test hntw=548) 1.050 1.001-1.035 PH UA (BEAKER) (test enfq=814) 5.5 5.0-8.0 PROTEIN UA (BEAKER) (test mkby=007) 50 mg/dL Negative GLUCOSE UA (BEAKER) (test yhzr=228) >1000 mg/dL Negative KETONES UA (BEAKER) (test owjf=430) Negative Negative BILIRUBIN UA (BEAKER) (test sdnz=217) Negative Negative BLOOD UA (BEAKER) (test djjo=299) Moderate Negative NITRITE UA (BEAKER) (test qalu=815) Negative Negative LEUKOCYTE ESTERASE UA (BEAKER) (test iafk=288) Negative Negative UROBILINOGEN UA (BEAKER) (test hvrp=259) 0.2 mg/dL 0.2-1.0 RBC UA (BEAKER) (test phja=200) 16 /HPF WBC UA (BEAKER) (test epsa=307) 11 /HPF BACTERIA (BEAKER) (test szjr=494) Rare MUCUS (BEAKER) (test zzua=3506) Rare SQUAMOUS EPITHELIAL (BEAKER) (test mdyr=824) 1 /HPF SOURCE(BEAKER) (test ufdv=7756) U/S, RENAL, [id number] 14:36:00Reason for exam:->acute renal failure , hydronephrosisShould [...] renal cyst.3. No hydronephrosis. Signed: Virginia Diaz Verified Date/Time: 07/18/2017 14:36:40 Reading Location: [address] Ultrasound Reading Room Electronically signed by: VIRGINIA DIAZ M.D. on 02:36 PMT4, [id number] 14:31:00 Test Item Value Reference Range Comments FREE T4 (BEAKER) (test hqzi=703) 1.13 ng/dL 0.70-1.48 BLOOD GAS, [id number] 14:01:00 Test Item Value Reference Range Comments PH ARTERIAL (BEAKER) (test jmeq=705) 7.42 7.35-7.45 PCO2 ARTERIAL (BEAKER) (test jfla=856) 42 mmHg 35-45 PO2 ARTERIAL (BEAKER) (test maei=418) 66 mmHg 80-90 O2 SATURATION ARTERIAL (BEAKER) (test dtfy=716) 93.5 % 96.0-97.0 HCO3 ARTERIAL (BEAKER) (test cgoc=420) 27 mmol/L 21-29 BASE EXCESS ARTERIAL (BEAKER) (test mvmm=279) 2.1 mmol/L -2.0-3.0 PATIENT TEMPERATURE (BEAKER) (test flxj=7015) 36.9 C FIO2 (BEAKER) (test rbis=2562) 40.0 % HEMOGLOBIN [id number] 13:57:00 Test Item Value Reference Range Comments HEMOGLOBIN A1C (BEAKER) (test rzec=057) 9.8 % 4.3-6.1 SODIUM, RANDOM [id number] 13:49:00 Test Item Value Reference Range Comments SODIUM URINE (BEAKER) (test qllh=561) 22 meq/L Reference Range: No NormalsTSH/FREE T4 IF [id number] 13:49:00 Test Item Value Reference Range Comments THYROID STIMULATING HORMONE (BEAKER) (test 0.27 uIU/mL 0.35-4.94 scxv=347) POCT-GLUCOSE [id number] 13:47:00 Test Item Value Reference Range Comments POC-GLUCOSE METER (BEAKER) 398 mg/dL 70-110 TESTED AT [facility] [address] [facility] (test nmlq=9413) [facility] [address] CREATININE, RANDOM [id number] 13:43:00 Test Item Value Reference Range Comments CREATININE URINE (BEAKER) (test nnqi=354) 85.4 mg/dL Reference Range: No NormalsPROTEIN, RANDOM [id number] 13:43:00 Test Item Value Reference Range Comments PROTEIN, URINE (BEAKER) (test caod=9434) 75 mg/dL 0-14 B-TYPE NATRIURETIC FACTOR (BNP)[id number] 13:17:00 Test Item Value Reference Range Comments B-TYPE NATRIURETIC PEPTIDE (BEAKER) (test 1847 pg/mL 0-100 unrd=933) BASIC METABOLIC [id number] 13:13:00 Test Item Value Reference Range Comments SODIUM (BEAKER) (test 138 meq/L 136-145 wulp=813) POTASSIUM (BEAKER) (test 4.8 meq/L 3.5-5.1 rerb=893) CHLORIDE (BEAKER) (test 101 meq/L 98-107 kyha=673) CO2 (BEAKER) (test 26 meq/L 22-29 pzeh=795) BLOOD UREA NITROGEN 21 mg/dL 7-21 (BEAKER) (test gvhc=490) CREATININE (BEAKER) (test 1.62 mg/dL 0.57-1.25 csuv=815) GLUCOSE RANDOM (BEAKER) 527 mg/dL 70-105 (test cyiq=445) CALCIUM (BEAKER) (test 8.9 mg/dL 8.4-10.2 danl=157) EGFR (BEAKER) (test 38 mL/min/1.73 sq m ESTIMATED GFR IS NOT xhuu=6862) ACCURATE CREATININE CLEARANCE IN PREDICTING GLOMERULAR FILTRATION RATE. ESTIMATED GFR IS NOT APPLICABLE FOR DIALYSIS PATIENTS. If last glucose was less than 500, may do bedside glucose instead of serum glucose.[id number] 13:12:00 Test Item Value Reference Range Comments MAGNESIUM (BEAKER) (test gqvq=303) 1.9 mg/dL 1.6-2.6 If last glucose was less than 500, may do bedside glucose instead of serum glucose.[id number] 13:12:00 Test Item Value Reference Range Comments LIPASE (BEAKER) (test fctc=801) 106 U/L 8-78 If last glucose was less than 500, may do bedside glucose instead of serum glucose.[id number] 13:11:00 Test Item Value Reference Range Comments PHOSPHORUS (BEAKER) (test eoiv=074) 3.3 mg/dL 2.3-4.7 If last glucose was less than 500, may do bedside glucose instead of serum glucose.POCT-GLUCOSE [id number] 12:49:00 Test Item Value Reference Range Comments POC-GLUCOSE METER (BEAKER) 498 mg/dL 70-110 Notified PAULA BERGER/TESTED AT [facility] (test iyhb=8269) [address] [place] [address] LACTIC ACID, VENOUS, WHOLE [id number] 12:11:00 Test Item Value Reference Range Comments LACTATE BLOOD VENOUS (2) (BEAKER) (test 3.8 mmol/L 0.5-2.2 xlwx=1419) Effective 08/06/2015: Units/Reference Range ChangeNew: 0.5-2.2 mmol/L Previous: 5 -20 mg/[id number] 12:10:00 Test Item Value Reference Range Comments PROCALCITONIN (BEAKER) (test hesz=0893) 3.80 ng/mL <0.05 SEPSIS RISK (ng/mL)Low: 0.05-0.50Intermediate: 0.51-2.00High: & gt;=2.01CBC W/PLT COUNT & AUTO [id number] 12:10:00 Test Item Value Reference Range Comments WHITE BLOOD CELL COUNT (BEAKER) (test cnih=298) 11.2 K/ L 3.5-10.5 RED BLOOD CELL COUNT (BEAKER) (test ljvl=159) 3.98 M/ L 3.93-5.22 HEMOGLOBIN (BEAKER) (test kszt=078) 12.0 GM/DL 11.2-15.7 HEMATOCRIT (BEAKER) (test rlfy=372) 38.5 % 34.1-44.9 MEAN CORPUSCULAR VOLUME (BEAKER) (test ihel=321) 96.7 fL 79.4-94.8 MEAN CORPUSCULAR HEMOGLOBIN (BEAKER) (test 30.2 pg 25.6-32.2 ivfo=905) MEAN CORPUSCULAR HEMOGLOBIN CONC (BEAKER) (test 31.2 GM/DL 32.2-35.5 lynm=378) RED CELL DISTRIBUTION WIDTH (BEAKER) (test 13.1 % 11.7-14.4 naut=825) PLATELET COUNT (BEAKER) (test tyfv=280) 222 K/CU MM 150-450 MEAN PLATELET VOLUME (BEAKER) (test jicl=859) 10.2 fL 9.4-12.3 NUCLEATED RED BLOOD CELLS (BEAKER) (test 0 /100 WBC 0-0 cekn=336) NEUTROPHILS RELATIVE PERCENT (BEAKER) (test 96 % kjib=831) LYMPHOCYTES RELATIVE PERCENT (BEAKER) (test 2 % sqhw=772) MONOCYTES RELATIVE PERCENT (BEAKER) (test 2 % fvym=122) EOSINOPHILS RELATIVE PERCENT (BEAKER) (test 0 % cixf=297) BASOPHILS RELATIVE PERCENT (BEAKER) (test 0 % sarf=496) NEUTROPHILS ABSOLUTE COUNT (BEAKER) (test 10.72 K/ L 1.56-6.13 vhxo=206) LYMPHOCYTES ABSOLUTE COUNT (BEAKER) (test 0.24 K/ L 1.18-3.74 unpd=489) MONOCYTES ABSOLUTE COUNT (BEAKER) (test 0.22 K/ L 0.24-0.36 lcal=456) EOSINOPHILS ABSOLUTE COUNT (BEAKER) (test 0.00 K/ L 0.04-0.36 mhxq=025) BASOPHILS ABSOLUTE COUNT (BEAKER) (test 0.01 K/ L 0.01-0.08 cyfl=370) IMMATURE GRANULOCYTES-RELATIVE PERCENT (BEAKER) 0 % 0-1 (test fasc=7968) BASIC METABOLIC [id number] 11:35:00 Test Item Value Reference Range Comments SODIUM (BEAKER) (test 136 meq/L 136-145 vvjp=849) POTASSIUM (BEAKER) (test 4.8 meq/L 3.5-5.1 ltep=725) CHLORIDE (BEAKER) (test 99 meq/L 98-107 xcjm=072) CO2 (BEAKER) (test 25 meq/L 22-29 saju=740) BLOOD UREA NITROGEN 19 mg/dL 7-21 (BEAKER) (test disr=982) CREATININE (BEAKER) (test 1.61 mg/dL 0.57-1.25 swbz=358) GLUCOSE RANDOM (BEAKER) 568 mg/dL 70-105 (test zqre=938) CALCIUM (BEAKER) (test 8.9 mg/dL 8.4-10.2 aeyq=578) EGFR (BEAKER) (test 38 mL/min/1.73 sq m ESTIMATED GFR IS NOT rfgq=7905) ACCURATE CREATININE CLEARANCE IN PREDICTING GLOMERULAR FILTRATION RATE. ESTIMATED GFR IS NOT APPLICABLE FOR DIALYSIS PATIENTS. BLOOD GAS, [id number] 10:57:00 Test Item Value Reference Range Comments PH ARTERIAL (BEAKER) (test ubkf=353) 7.36 7.35-7.45 PCO2 ARTERIAL (BEAKER) (test keyj=989) 47 mmHg 35-45 PO2 ARTERIAL (BEAKER) (test htik=409) 78 mmHg 80-90 O2 SATURATION ARTERIAL (BEAKER) (test hxpr=805) 95.0 % 96.0-97.0 HCO3 ARTERIAL (BEAKER) (test xeee=891) 26 mmol/L 21-29 BASE EXCESS ARTERIAL (BEAKER) (test kxrt=394) 0.4 mmol/L -2.0-3.0 PATIENT TEMPERATURE (BEAKER) (test uylj=0690) 37.0 C FIO2 (BEAKER) (test xzim=3020) 100.0 % RAD, CHEST, 1 VIEW, NON [id number] 10:38:00Reason for exam:->IABP Should this be performed [...] MDReport Verified Date/Time: 07/18/2017 10:38:31 Reading Location: [facility] Radiology Reading Room CBC W/PLT COUNT & AUTO [id number] 10: 01:00 Test Item Value Reference Range Comments WHITE BLOOD CELL COUNT (BEAKER) (test ktov=338) 12.8 K/ L 3.5-10.5 RED BLOOD CELL COUNT (BEAKER) (test fjfb=116) 3.95 M/ L 3.93-5.22 HEMOGLOBIN (BEAKER) (test txuq=981) 11.9 GM/DL 11.2-15.7 HEMATOCRIT (BEAKER) (test jncg=407) 38.3 % 34.1-44.9 MEAN CORPUSCULAR VOLUME (BEAKER) (test mupv=542) 97.0 fL 79.4-94.8 MEAN CORPUSCULAR HEMOGLOBIN (BEAKER) (test 30.1 pg 25.6-32.2 drxp=668) MEAN CORPUSCULAR HEMOGLOBIN CONC (BEAKER) (test 31.1 GM/DL 32.2-35.5 wyhn=742) RED CELL DISTRIBUTION WIDTH (BEAKER) (test 13.1 % 11.7-14.4 tlfe=543) PLATELET COUNT (BEAKER) (test rzww=071) 231 K/CU MM 150-450 MEAN PLATELET VOLUME (BEAKER) (test cvhp=048) 10.4 fL 9.4-12.3 NUCLEATED RED BLOOD CELLS (BEAKER) (test 0 /100 WBC 0-0 gkli=391) NEUTROPHILS RELATIVE PERCENT (BEAKER) (test 91 % zuuf=754) LYMPHOCYTES RELATIVE PERCENT (BEAKER) (test 4 % izmg=694) MONOCYTES RELATIVE PERCENT (BEAKER) (test 4 % cjdg=119) EOSINOPHILS RELATIVE PERCENT (BEAKER) (test 0 % fukj=563) BASOPHILS RELATIVE PERCENT (BEAKER) (test 0 % cotk=194) NEUTROPHILS ABSOLUTE COUNT (BEAKER) (test 11.66 K/ L 1.56-6.13 phby=585) LYMPHOCYTES ABSOLUTE COUNT (BEAKER) (test 0.53 K/ L 1.18-3.74 kvqh=536) MONOCYTES ABSOLUTE COUNT (BEAKER) (test 0.49 K/ L 0.24-0.36 hhuq=794) EOSINOPHILS ABSOLUTE COUNT (BEAKER) (test 0.01 K/ L 0.04-0.36 ncfj=105) BASOPHILS ABSOLUTE COUNT (BEAKER) (test 0.03 K/ L 0.01-0.08 wfus=924) IMMATURE GRANULOCYTES-RELATIVE PERCENT (BEAKER) 0 % 0-1 (test tpjj=5752) COMPREHENSIVE METABOLIC [id number] 09:38:00 Test Item Value Reference Range Comments TOTAL PROTEIN (BEAKER) 6.7 gm/dL 6.0-8.3 Specimen slightly (test oyzp=455) hemolyzed ALBUMIN (BEAKER) (test 3.5 g/dL 3.5-5.0 Specimen slightly kwoc=8046) hemolyzed ALKALINE PHOSPHATASE 70 U/L 40-150 (BEAKER) (test pset=419) BILIRUBIN TOTAL (BEAKER) 0.6 mg/dL 0.2-1.2 Specimen slightly (test kszq=629) hemolyzed SODIUM (BEAKER) (test 134 meq/L 136-145 vjji=213) POTASSIUM (BEAKER) (test 4.7 meq/L 3.5-5.1 Specimen slightly jpgd=241) hemolyzed CHLORIDE (BEAKER) (test 98 meq/L 98-107 snqm=984) CO2 (BEAKER) (test 25 meq/L 22-29 eyir=133) BLOOD UREA NITROGEN 19 mg/dL 7-21 (BEAKER) (test lecn=163) CREATININE (BEAKER) (test 1.57 mg/dL 0.57-1.25 Specimen slightly zicp=884) hemolyzed GLUCOSE RANDOM (BEAKER) 652 mg/dL 70-105 (test jvra=606) CALCIUM (BEAKER) (test 8.7 mg/dL 8.4-10.2 wnlk=355) AST (SGOT) (BEAKER) (test 343 U/L 5-34 Specimen slightly tcwy=451) hemolyzed ALT (SGPT) (BEAKER) (test 89 U/L 6-55 Specimen slightly gmgn=995) hemolyzed EGFR (BEAKER) (test 39 mL/min/1.73 sq m ESTIMATED GFR IS NOT rtej=8354) ACCURATE CREATININE CLEARANCE IN PREDICTING GLOMERULAR FILTRATION RATE. ESTIMATED GFR IS NOT APPLICABLE FOR DIALYSIS PATIENTS. [id number] 09:09:00 Test Item Value Reference Range Comments ACTIVATED CLOTTING TIME 252 sec TESTED AT [facility] [address] (BEAKER) (test xxye=373) [facility] [address] PROTHROMBIN TIME/[id number] 09:01:00 Test Item Value Reference Range Comments PROTIME (BEAKER) (test feqa=816) 18.3 seconds 11.7-14.7 INR (BEAKER) (test zimf=422) 1.5 <=5.9 RECOMMENDED COUMADIN/WARFARIN INR THERAPY RANGESSTANDARD DOSE: 2.0 - 3.0 Includes: PROPHYLAXIS forvenous thrombosis, systemic embolization; TREATMENT for venous thrombosis and/or pulmonary embolus.HIGH RISK: Target INR is 2.5-3.5 for patients with mechanical heart valves.[id number] 08:09:00 Test Item Value Reference Range Comments ACTIVATED CLOTTING TIME 213 sec TESTED AT [place] [address] [address] (BEAKER) (test ejbu=104) [place] [id number] 08:09:00 Test Item Value Reference Range Comments ACTIVATED CLOTTING TIME 263 sec TESTED AT [place] [address] [address] (BEAKER) (test ipsp=541) [place] [id number] BLOOD GAS, [id number] 07:50:00 Test Item Value Reference Range Comments PH ARTERIAL (BEAKER) (test mgzy=691) 7.20 7.35-7.45 PCO2 ARTERIAL (BEAKER) (test wsmz=391) 65 mmHg 35-45 PO2 ARTERIAL (BEAKER) (test tzkp=607) 133 mmHg 80-90 O2 SATURATION ARTERIAL (BEAKER) (test linl=290) 98.1 % 96.0-97.0 HCO3 ARTERIAL (BEAKER) (test dyly=461) 25 mmol/L 21-29 BASE EXCESS ARTERIAL (BEAKER) (test kuew=835) -4.3 mmol/L -2.0-3.0 PATIENT TEMPERATURE (BEAKER) (test ffkb=5507) 36.0 C FIO2 (BEAKER) (test spvi=9619) 100.0 % POCT-GLUCOSE [id number] 12:27:00 Test Item Value Reference Range Comments POC-GLUCOSE METER (BEAKER) 156 mg/dL 70-110 TESTED AT [address] (test wlgb=9117) [place] [address] BASIC METABOLIC [id number] 05:45:00 Test Item Value Reference Range Comments SODIUM (BEAKER) (test 141 meq/L 136-145 dxxe=269) POTASSIUM (BEAKER) (test 4.1 meq/L 3.5-5.1 hopa=776) CHLORIDE (BEAKER) (test 106 meq/L 98-107 xpsd=500) CO2 (BEAKER) (test 26 meq/L 22-29 rxxm=342) BLOOD UREA NITROGEN 11 mg/dL 7-21 (BEAKER) (test uexh=022) CREATININE (BEAKER) (test 0.83 mg/dL 0.57-1.25 uzvq=613) GLUCOSE RANDOM (BEAKER) 139 mg/dL 70-105 (test yzsf=219) CALCIUM (BEAKER) (test 8.5 mg/dL 8.4-10.2 lntv=032) EGFR (BEAKER) (test 83 mL/min/1.73 sq m ESTIMATED GFR IS NOT tvbt=1677) ACCURATE CREATININE CLEARANCE IN PREDICTING GLOMERULAR FILTRATION RATE. ESTIMATED GFR IS NOT APPLICABLE FOR DIALYSIS PATIENTS. POCT-GLUCOSE [id number] 21:10:00 Test Item Value Reference Range Comments POC-GLUCOSE METER (BEAKER) 103 mg/dL 70-110 TESTED AT [address] (test ggrb=1390) [place] [address] POCT-GLUCOSE [id number] 17:51:00 Test Item Value Reference Range Comments POC-GLUCOSE METER (BEAKER) 138 mg/dL 70-110 TESTED AT [address] (test ivmf=8200) [place] [address] POCT-GLUCOSE [id number] 12:45:00 Test Item Value Reference Range Comments POC-GLUCOSE METER (BEAKER) 294 mg/dL 70-110 TESTED AT [address] (test pyyd=7495) [place] [address] CBC WITH PLATELET COUNT + MANUAL [id number] 07:04:00 Test Item Value Reference Range Comments WHITE BLOOD CELL COUNT (BEAKER) (test kdac=946) 10.7 K/ L 4.0-10.0 RED BLOOD CELL COUNT (BEAKER) (test hyyb=444) 3.91 M/ L 4.00-5.00 HEMOGLOBIN (BEAKER) (test nzsu=278) 12.9 GM/DL 12.0-15.0 HEMATOCRIT (BEAKER) (test jxdy=294) 39.0 % 36.0-45.0 MEAN CORPUSCULAR VOLUME (BEAKER) (test pdid=326) 99.6 fL 82.0-99.0 MEAN CORPUSCULAR HEMOGLOBIN (BEAKER) (test 32.9 pg 27.0-33.0 xwml=110) MEAN CORPUSCULAR HEMOGLOBIN CONC (BEAKER) (test 33.0 GM/DL 32.0-36.0 qdsd=950) RED CELL DISTRIBUTION WIDTH (BEAKER) (test 12.8 % 10.3-14.2 xzrp=029) PLATELET COUNT (BEAKER) (test hxbj=793) 251 K/CU MM 150-430 MEAN PLATELET VOLUME (BEAKER) (test gsyd=968) 8.1 fL 6.5-10.5 NUCLEATED RED BLOOD CELLS (BEAKER) (test 0 /100 WBC 0-0 aiyg=038) NEUTROPHILS RELATIVE PERCENT (BEAKER) (test 80 % xdqi=750) LYMPHOCYTES RELATIVE PERCENT (BEAKER) (test 14 % ehkw=613) MONOCYTES RELATIVE PERCENT (BEAKER) (test 6 % aegv=982) EOSINOPHILS RELATIVE PERCENT (BEAKER) (test 0 % yczp=770) BASOPHILS RELATIVE PERCENT (BEAKER) (test 0 % wwra=474) NEUTROPHILS ABSOLUTE COUNT (BEAKER) (test 8.55 K/ L 1.80-8.00 cerq=018) LYMPHOCYTES ABSOLUTE COUNT (BEAKER) (test 1.46 K/ L 1.48-4.50 rojd=636) MONOCYTES ABSOLUTE COUNT (BEAKER) (test 0.60 K/ L 0.00-1.30 qqpc=220) EOSINOPHILS ABSOLUTE COUNT (BEAKER) (test 0.05 K/ L 0.00-0.50 dxfu=834) BASOPHILS ABSOLUTE COUNT (BEAKER) (test 0.02 K/ L 0.00-0.20 feah=761) 0.00(MANUAL DIFFERENTIAL)2016-06-14 07:04:00 Test Item Value Reference Range Comments TOTAL COUNTED (BEAKER) (test bzqg=3930) PLT MORPHOLOGY (BEAKER) (test wrwy=862) Normal RBC MORPHOLOGY (BEAKER) (test ckhy=165) Normal ATYPICAL LYMPHS(BEAKER) (test ujyr=0770) Present BASIC METABOLIC [id number] 05:05:00 Test Item Value Reference Range Comments SODIUM (BEAKER) (test 140 meq/L 136-145 ntwl=217) POTASSIUM (BEAKER) (test 3.8 meq/L 3.5-5.1 jguo=873) CHLORIDE (BEAKER) (test 107 meq/L 98-107 mjrj=071) CO2 (BEAKER) (test 26 meq/L 22-29 gieg=802) BLOOD UREA NITROGEN 13 mg/dL 7-21 (BEAKER) (test xkcx=742) CREATININE (BEAKER) (test 0.80 mg/dL 0.57-1.25 evly=260) GLUCOSE RANDOM (BEAKER) 177 mg/dL 70-105 (test udtp=318) CALCIUM (BEAKER) (test 8.3 mg/dL 8.4-10.2 sbqo=903) EGFR (BEAKER) (test 86 mL/min/1.73 sq m ESTIMATED GFR IS NOT yzow=6445) ACCURATE CREATININE CLEARANCE IN PREDICTING GLOMERULAR FILTRATION RATE. ESTIMATED GFR IS NOT APPLICABLE FOR DIALYSIS PATIENTS. [id number] 04:48:00 Test Item Value Reference Range Comments PROTIME (BEAKER) (test xjjq=753) 13.0 seconds 11.7-14.7 INR (BEAKER) (test lvwm=584) 1.0 <=5.9 PARTIAL THROMBOPLASTIN TIME (BEAKER) (test 31.8 seconds 22.5-36.0 eqlb=117) RECOMMENDED COUMADIN/WARFARIN INR THERAPY RANGESSTANDARD DOSE: 2.0 - 3.0 Includes: PROPHYLAXIS forvenous thrombosis, systemic embolization; TREATMENT for venous thrombosis and/or pulmonary embolus.HIGH RISK: Target INR is 2.5-3.5 for patients with mechanical heart valves.POCT-GLUCOSE [id number] 22:11:00 Test Item Value Reference Range Comments POC-GLUCOSE METER (BEAKER) 200 mg/dL 70-110 TESTED AT [address] (test jihs=9230) [place] [address] POCT-GLUCOSE [id number] 17:13:00 Test Item Value Reference Range Comments POC-GLUCOSE METER (BEAKER) 225 mg/dL 70-110 TESTED AT [address] (test bpkb=3176) [place] [address] POCT-GLUCOSE [id number] 12:22:00 Test Item Value Reference Range Comments POC-GLUCOSE METER (BEAKER) 309 mg/dL 70-110 Notified PAULA BERGER/TESTED AT [facility] (test rtrn=6824) [address] [place] [address] URINALYSIS W/ [id number] 12:09:00 Test Item Value Reference Range Comments COLOR (BEAKER) (test qpym=122) Yellow CLARITY (BEAKER) (test usmi=478) Clear SPECIFIC GRAVITY UA (BEAKER) (test ufcg=373) 1.035 1.001-1.035 PH UA (BEAKER) (test suiq=042) 5.0 5.0-8.0 PROTEIN UA (BEAKER) (test obev=518) Negative Negative GLUCOSE UA (BEAKER) (test seva=073) 150 mg/dL Negative KETONES UA (BEAKER) (test pwza=296) Negative Negative BILIRUBIN UA (BEAKER) (test bliw=304) Negative Negative BLOOD UA (BEAKER) (test ozwa=129) Small Negative NITRITE UA (BEAKER) (test oryr=740) Negative Negative LEUKOCYTE ESTERASE UA (BEAKER) (test omcu=969) Negative Negative UROBILINOGEN UA (BEAKER) (test offg=209) 0.2 mg/dL 0.2-1.0 RBC UA (BEAKER) (test tcob=081) 6 /HPF WBC UA (BEAKER) (test kzjc=592) 1 /HPF MUCUS (BEAKER) (test stye=8649) Rare SQUAMOUS EPITHELIAL (BEAKER) (test dpzi=895) 6 /HPF HYALINE CASTS (BEAKER) (test mjeh=162) 2 /LPF SOURCE(BEAKER) (test yjqf=5502) POCT-GLUCOSE [id number] 07:58:00 Test Item Value Reference Range Comments POC-GLUCOSE METER (BEAKER) 236 mg/dL 70-110 TESTED AT [address] (test sdpb=0762) [facility] [id number] BASIC METABOLIC [id number] 04:10:00 Test Item Value Reference Range Comments SODIUM (BEAKER) (test 138 meq/L 136-145 wphu=732) POTASSIUM (BEAKER) (test 4.2 meq/L 3.5-5.1 nszi=383) CHLORIDE (BEAKER) (test 107 meq/L 98-107 wjsw=026) CO2 (BEAKER) (test 22 meq/L 22-29 ygba=633) BLOOD UREA NITROGEN 20 mg/dL 7-21 (BEAKER) (test srea=230) CREATININE (BEAKER) (test 1.00 mg/dL 0.57-1.25 yadp=928) GLUCOSE RANDOM (BEAKER) 246 mg/dL 70-105 (test ztgc=126) CALCIUM (BEAKER) (test 8.8 mg/dL 8.4-10.2 tqul=167) EGFR (BEAKER) (test 67 mL/min/1.73 sq m ESTIMATED GFR IS NOT hefr=4675) ACCURATE CREATININE CLEARANCE IN PREDICTING GLOMERULAR FILTRATION RATE. ESTIMATED GFR IS NOT APPLICABLE FOR DIALYSIS PATIENTS. [id number] 04:03:00 Test Item Value Reference Range Comments PROTIME (BEAKER) (test xtcv=617) 12.8 seconds 11.7-14.7 INR (BEAKER) (test wbuy=209) 1.0 <=5.9 PARTIAL THROMBOPLASTIN TIME (BEAKER) (test 29.6 seconds 22.5-36.0 owim=353) RECOMMENDED COUMADIN/WARFARIN INR THERAPY RANGESSTANDARD DOSE: 2.0 - 3.0 Includes: PROPHYLAXIS forvenous thrombosis, systemic embolization; TREATMENT for venous thrombosis and/or pulmonary embolus.HIGH RISK: Target INR is 2.5-3.5 for patients with mechanical heart valves.CBC WITH PLATELET COUNT + MANUAL [id number] 03:58:00 Test Item Value Reference Range Comments WHITE BLOOD CELL COUNT (BEAKER) (test wpxl=083) 14.3 K/ L 4.0-10.0 RED BLOOD CELL COUNT (BEAKER) (test zqin=254) 4.03 M/ L 4.00-5.00 HEMOGLOBIN (BEAKER) (test ubrm=268) 13.1 GM/DL 12.0-15.0 HEMATOCRIT (BEAKER) (test cwvq=695) 39.7 % 36.0-45.0 MEAN CORPUSCULAR VOLUME (BEAKER) (test adsg=362) 98.5 fL 82.0-99.0 MEAN CORPUSCULAR HEMOGLOBIN (BEAKER) (test 32.6 pg 27.0-33.0 qbhv=699) MEAN CORPUSCULAR HEMOGLOBIN CONC (BEAKER) (test 33.1 GM/DL 32.0-36.0 zypv=167) RED CELL DISTRIBUTION WIDTH (BEAKER) (test 12.9 % 10.3-14.2 akck=646) PLATELET COUNT (BEAKER) (test ezui=321) 271 K/CU MM 150-430 MEAN PLATELET VOLUME (BEAKER) (test tgsg=142) 7.7 fL 6.5-10.5 NUCLEATED RED BLOOD CELLS (BEAKER) (test 0 /100 WBC 0-0 fegg=390) NEUTROPHILS RELATIVE PERCENT (BEAKER) (test 87 % dpia=515) LYMPHOCYTES RELATIVE PERCENT (BEAKER) (test 7 % apel=853) MONOCYTES RELATIVE PERCENT (BEAKER) (test 6 % prem=404) EOSINOPHILS RELATIVE PERCENT (BEAKER) (test 0 % uqfc=346) BASOPHILS RELATIVE PERCENT (BEAKER) (test 0 % sqpp=181) NEUTROPHILS ABSOLUTE COUNT (BEAKER) (test 12.40 K/ L 1.80-8.00 zvqn=351) LYMPHOCYTES ABSOLUTE COUNT (BEAKER) (test 1.06 K/ L 1.48-4.50 pvnd=929) MONOCYTES ABSOLUTE COUNT (BEAKER) (test 0.81 K/ L 0.00-1.30 cmrp=004) EOSINOPHILS ABSOLUTE COUNT (BEAKER) (test 0.01 K/ L 0.00-0.50 vbmr=096) BASOPHILS ABSOLUTE COUNT (BEAKER) (test 0.03 K/ L 0.00-0.20 vook=715) [id number]-GLUCOSE [id number] 22:17:00 Test Item Value Reference Range Comments POC-GLUCOSE METER (BEAKER) 260 mg/dL 70-110 TESTED AT [address] (test noro=0907) [place] [id number] POCT-GLUCOSE [id number] 12:11:00 Test Item Value Reference Range Comments POC-GLUCOSE METER (BEAKER) 278 mg/dL 70-110 TESTED AT [address] (test axch=3202) [place] [id number] HEMOGLOBIN [id number] 10:46:00 Test Item Value Reference Range Comments HEMOGLOBIN A1C (BEAKER) (test wuoe=473) 9.7 % 4.3-6.1 DC\S\Delta Check\S\NONEPOCT-GLUCOSE [id number] 07:15:00 Test Item Value Reference Range Comments POC-GLUCOSE METER (BEAKER) 283 mg/dL 70-110 TESTED AT [address] (test nrgx=0863) [place] [id number] BASIC METABOLIC [id number] 04:43:00 Test Item Value Reference Range Comments SODIUM (BEAKER) (test 136 meq/L 136-145 bscy=034) POTASSIUM (BEAKER) (test 4.0 meq/L 3.5-5.1 ufre=544) CHLORIDE (BEAKER) (test 102 meq/L 98-107 bdan=521) CO2 (BEAKER) (test 27 meq/L 22-29 zaug=967) BLOOD UREA NITROGEN 18 mg/dL 7-21 (BEAKER) (test kfij=040) CREATININE (BEAKER) (test 0.95 mg/dL 0.57-1.25 gpha=559) GLUCOSE RANDOM (BEAKER) 256 mg/dL 70-105 (test vpbe=833) CALCIUM (BEAKER) (test 9.0 mg/dL 8.4-10.2 khqk=080) EGFR (BEAKER) (test 71 mL/min/1.73 sq m ESTIMATED GFR IS NOT tukz=1329) ACCURATE CREATININE CLEARANCE IN PREDICTING GLOMERULAR FILTRATION RATE. ESTIMATED GFR IS NOT APPLICABLE FOR DIALYSIS PATIENTS. CBC WITH PLATELET COUNT + MANUAL [id number] 04:28:00 Test Item Value Reference Range Comments WHITE BLOOD CELL COUNT (BEAKER) (test gfer=194) 11.6 K/ L 4.0-10.0 RED BLOOD CELL COUNT (BEAKER) (test ijyg=852) 4.15 M/ L 4.00-5.00 HEMOGLOBIN (BEAKER) (test mqdb=628) 13.3 GM/DL 12.0-15.0 HEMATOCRIT (BEAKER) (test cqqj=638) 40.5 % 36.0-45.0 MEAN CORPUSCULAR VOLUME (BEAKER) (test ihhl=597) 97.6 fL 82.0-99.0 MEAN CORPUSCULAR HEMOGLOBIN (BEAKER) (test 32.1 pg 27.0-33.0 hozt=178) MEAN CORPUSCULAR HEMOGLOBIN CONC (BEAKER) (test 32.9 GM/DL 32.0-36.0 hnym=217) RED CELL DISTRIBUTION WIDTH (BEAKER) (test 12.7 % 10.3-14.2 vlxz=436) PLATELET COUNT (BEAKER) (test eaqg=202) 263 K/CU MM 150-430 MEAN PLATELET VOLUME (BEAKER) (test tzia=057) 8.2 fL 6.5-10.5 NUCLEATED RED BLOOD CELLS (BEAKER) (test 0 /100 WBC 0-0 xgvw=775) NEUTROPHILS RELATIVE PERCENT (BEAKER) (test 90 % ytmu=762) LYMPHOCYTES RELATIVE PERCENT (BEAKER) (test 8 % clrs=817) MONOCYTES RELATIVE PERCENT (BEAKER) (test 2 % fbgp=267) EOSINOPHILS RELATIVE PERCENT (BEAKER) (test 0 % trsf=163) BASOPHILS RELATIVE PERCENT (BEAKER) (test 0 % dusx=461) NEUTROPHILS ABSOLUTE COUNT (BEAKER) (test 10.40 K/ L 1.80-8.00 cagq=461) LYMPHOCYTES ABSOLUTE COUNT (BEAKER) (test 0.95 K/ L 1.48-4.50 tvxo=699) MONOCYTES ABSOLUTE COUNT (BEAKER) (test 0.20 K/ L 0.00-1.30 kjpy=914) EOSINOPHILS ABSOLUTE COUNT (BEAKER) (test 0.02 K/ L 0.00-0.50 qjvj=728) BASOPHILS ABSOLUTE COUNT (BEAKER) (test 0.02 K/ L 0.00-0.20 uayj=048) [id number] 04:25:00 Test Item Value Reference Range Comments PROTIME (BEAKER) (test mmju=639) 13.7 seconds 11.7-14.7 INR (BEAKER) (test wnpv=855) 1.1 <=5.9 PARTIAL THROMBOPLASTIN TIME (BEAKER) (test 32.8 seconds 22.5-36.0 dgwn=100) RECOMMENDED COUMADIN/WARFARIN INR THERAPY RANGESSTANDARD DOSE: 2.0 - 3.0 Includes: PROPHYLAXIS forvenous thrombosis, systemic embolization; TREATMENT for venous thrombosis and/or pulmonary embolus.HIGH RISK: Target INR is 2.5-3.5 for patients with mechanical heart valves.POCT-GLUCOSE [id number] 02:47:00 Test Item Value Reference Range Comments POC-GLUCOSE METER (BEAKER) 278 mg/dL 70-110 TESTED AT [address] (test xgds=5492) [facility] [address] POCT-GLUCOSE [id number] 22:12:00 Test Item Value Reference Range Comments POC-GLUCOSE METER (BEAKER) 258 mg/dL 70-110 TESTED AT [address] (test oxaa=6224) [facility] [address] [id number] 15:44:00 Test Item Value Reference Range Comments MAGNESIUM (BEAKER) (test 2.1 mg/dL 1.6-2.6 Specimen slightly hemolyzed zwgs=815) [id number] 15:44:00 Test Item Value Reference Range Comments PHOSPHORUS (BEAKER) (test 2.9 mg/dL 2.3-4.7 Specimen slightly hemolyzed equb=700) BASIC METABOLIC [id number] 15:44:00 Test Item Value Reference Range Comments SODIUM (BEAKER) (test 137 meq/L 136-145 klzr=910) POTASSIUM (BEAKER) (test 4.4 meq/L 3.5-5.1 Specimen slightly uxty=739) hemolyzed CHLORIDE (BEAKER) (test 99 meq/L 98-107 nbkv=853) CO2 (BEAKER) (test 27 meq/L 22-29 ieun=686) BLOOD UREA NITROGEN 13 mg/dL 7-21 (BEAKER) (test bicg=472) CREATININE (BEAKER) (test 0.96 mg/dL 0.57-1.25 Specimen slightly apje=948) hemolyzed GLUCOSE RANDOM (BEAKER) 250 mg/dL 70-105 (test muqy=380) CALCIUM (BEAKER) (test 9.6 mg/dL 8.4-10.2 wmde=560) EGFR (BEAKER) (test 70 mL/min/1.73 sq m ESTIMATED GFR IS NOT xbct=7874) ACCURATE CREATININE CLEARANCE IN PREDICTING GLOMERULAR FILTRATION RATE. ESTIMATED GFR IS NOT APPLICABLE FOR DIALYSIS PATIENTS. CBC WITH PLATELET COUNT + MANUAL [id number] 15:39:00 Test Item Value Reference Range Comments WHITE BLOOD CELL COUNT (BEAKER) (test eilj=942) 9.5 K/ L 4.0-10.0 RED BLOOD CELL COUNT (BEAKER) (test gtta=094) 4.18 M/ L 4.00-5.00 HEMOGLOBIN (BEAKER) (test gjfr=633) 14.0 GM/DL 12.0-15.0 HEMATOCRIT (BEAKER) (test oxpu=961) 40.7 % 36.0-45.0 MEAN CORPUSCULAR VOLUME (BEAKER) (test yooq=579) 97.3 fL 82.0-99.0 MEAN CORPUSCULAR HEMOGLOBIN (BEAKER) (test 33.4 pg 27.0-33.0 idxo=401) MEAN CORPUSCULAR HEMOGLOBIN CONC (BEAKER) (test 34.3 GM/DL 32.0-36.0 frzy=313) RED CELL DISTRIBUTION WIDTH (BEAKER) (test 12.6 % 10.3-14.2 ddtn=286) PLATELET COUNT (BEAKER) (test iqnc=958) 253 K/CU MM 150-430 MEAN PLATELET VOLUME (BEAKER) (test ifhj=597) 8.1 fL 6.5-10.5 NUCLEATED RED BLOOD CELLS (BEAKER) (test 0 /100 WBC 0-0 mwfq=038) NEUTROPHILS RELATIVE PERCENT (BEAKER) (test 91 % rxph=528) LYMPHOCYTES RELATIVE PERCENT (BEAKER) (test 8 % junb=373) MONOCYTES RELATIVE PERCENT (BEAKER) (test 1 % jtbd=366) EOSINOPHILS RELATIVE PERCENT (BEAKER) (test 0 % aejl=228) BASOPHILS RELATIVE PERCENT (BEAKER) (test 0 % cfka=053) NEUTROPHILS ABSOLUTE COUNT (BEAKER) (test 8.66 K/ L 1.80-8.00 odlz=957) LYMPHOCYTES ABSOLUTE COUNT (BEAKER) (test 0.78 K/ L 1.48-4.50 pwih=357) MONOCYTES ABSOLUTE COUNT (BEAKER) (test 0.07 K/ L 0.00-1.30 jtjo=879) EOSINOPHILS ABSOLUTE COUNT (BEAKER) (test 0.01 K/ L 0.00-0.50 vkvc=565) BASOPHILS ABSOLUTE COUNT (BEAKER) (test 0.01 K/ L 0.00-0.20 usgk=484) [id number] 15:39:00 Test Item Value Reference Range Comments PROTIME (BEAKER) (test yrhu=276) 12.7 seconds 11.7-14.7 INR (BEAKER) (test anan=630) 1.0 <=5.9 PARTIAL THROMBOPLASTIN TIME (BEAKER) (test 32.8 seconds 22.5-36.0 ysff=422) RECOMMENDED COUMADIN/WARFARIN INR THERAPY RANGESSTANDARD DOSE: 2.0 - 3.0 Includes: PROPHYLAXIS forvenous thrombosis, systemic embolization; TREATMENT for venous thrombosis and/or pulmonary embolus.HIGH RISK: Target INR is 2.5-3.5 for patients with mechanical heart valves.
[2019-04-13] MEDS ORDERED: FUROSEMIDE 100 MG/10 ML VIAL IV ONE (12:36)
[2019-04-13 12:42] LABS: Absolute Lymphocytes (CBC) 0.5 K/uL (0.7-4.9); Basophils % 0.8 % (0-1.3); Lymphocytes % 8.1 % (15.3-44.8); RBC Red Blood Cell Count 3.28 M/uL (3.86-4.86)
[2019-04-13 12:48] LABS: Protime INR 1.21
--- NOTE | 2019-04-13 13:03 | RAD REPORT ---
EXAM DESCRIPTION: Angy Single View04/13/2019 12:57 pm CLINICAL HISTORY: Shortness of breath COMPARISON: January 2019 FINDINGS: Small right pleural effusion with mild right basilar opacities Left lung appears grossly clear Postsurgical changes involve the chest. The heart is markedly enlarged. IMPRESSION: Small right pleural effusion with mild right basilar opacities which may represent atele ctasis or pneumonia
[2019-04-13 13:21] LABS: ALT/SGPT 46 U/L (12-78); AST/SGOT 38 U/L (15-37); Albumin 2.9 g/dL (3.4-5.0); Alkaline Phosphatase 133 U/L (45-117); BUN Blood Urea Nitrogen 60 mg/dL (7-18); Bicarbonate 29 mmol/L (21-32); Bilirubin Direct 0.4 mg/dL (0-0.2); Bilirubin Total 0.6 mg/dL (0.2-1.0); Glucose Level 242 mg/dL (74-106); Magnesium 2.4 mg/dL (1.8-2.4); NT PRO-BNP 91897 pg/mL (<125); Potassium 4.2 mmol/L (3.5-5.1); Protein, Total 7.3 g/dL (6.4-8.2); Sodium Level 143 mmol/L (136-145); Troponin (Emerg Dept Use Only) < 0.02 ng/mL (0.0-0.045)
--- NOTE | 2019-04-13 13:31 | ER ---
Nurse's Notes [facility] Name: Christa Ayala Age: 73 yrs Sex: Female : 1945 Arrival Date: 04/13/2019 Time: 12:11 Bed 2 Private MD: Diagnosis: Acute combined systolic (congestive) and diastolic (congestive) heart failure;End stage renal disease Presentation: 04/13 12:06 Presenting complaint: EMS states: increasing SOB with exertion and BLE edema x 1 week. sv BP 124/82 HR-53 78% RA, placed on O2 \T\ 2L per NC, O2 sat up to 93%. Transition of care: patient was not received from another setting of care. Onset of symptoms was April 2019. Care prior to arrival: None. 12:06 Method Of Arrival: EMS: [facility] sv 12:06 Acuity: SONYA 2 sv 12:10 Risk Assessment: Do you want to hurt yourself or someone else? Patient reports no sv desire to harm self or others. Initial Sepsis Screen: Does the patient meet any 2 criteria? RR > 20 per min. No. Patient's initial sepsis screen is negative. Does the patient have a suspected source of infection? No. Patient's initial sepsis screen is negative. Triage Assessment: 12:06 General: Appears distressed, comfortable, Behavior is calm, cooperative, appropriate sv for age. Pain: Denies pain. Neuro: Level of Consciousness is awake, alert, obeys commands, Oriented to person, place, time, situation, Moves all extremities. Respiratory: Reports shortness of breath at rest on exertion Airway is patent Respiratory effort is unlabored, shallow, Respiratory pattern is symmetrical, tachypnea Breath sounds with crackles bilaterally. Derm: Skin is normal. Historical: - Allergies: 12:28 Codeine; sv 12:28 Demerol; sv 12:28 Iodine; sv - Home Meds: 13:42 acetaminophen 325 mg Oral tab 1 -2 tabs every 4-6 hours for Pain [Active]; aspirin 81 sv mg Oral TbEC 1 tab once daily [Active]; Aldactone 25 mg Oral tab 1 tab once daily [Active]; bumetanide 1 mg Oral tab 1 tab once daily [Active]; trelegy ellipta 100/62.5/25 mcg 1 puff daily [Active]; pantoprazole 40 mg Oral TbEC 1 tab once daily [Active]; atorvastatin 40 mg Oral tab 1 tab nightly [Active]; Plavix 75 mg Oral tab 1 tab once daily [Active]; escitalopram oxalate 10 mg Oral tab 1 tab once daily [Active]; carvedilol 3.125 mg oral tab 2 times per day [Active]; - PMHx: 12:28 Anemia; Atrial Fib; CHF; COPD; Diabetes - NIDDM; Emphysema; enlarged aorta; GERD; High sv Cholesterol; Hypertension; Myocardial infarction; - Immunization history:: Adult Immunizations up to date. - Social history:: Smoking status: Patient/guardian denies using tobacco. - Ebola Screening: : No symptoms or risks identified at this time. Screenin:57 Abuse screen: Denies threats or abuse. Denies injuries from another. Nutritional sv screening: No deficits noted. Tuberculosis screening: No symptoms or risk factors identified. Fall Risk None identified. Assessment: 12:52 Reassessment: Patient appears in no apparent distress at this time. No changes from sv previously documented assessment. Patient and/or family updated on plan of care and expected duration. Pain level reassessed. Patient is alert, oriented x 3, equal unlabored respirations, skin warm/dry/pink. 12:52 Derm: Decubitus located on top of gluteal cleft approximately 1.5 cm to 2.5 cm is stage sv II is draining none noted. 14:20 Reassessment: Patient appears in no apparent distress at this time. No changes from sv previously documented assessment. Patient and/or family updated on plan of care and expected duration. Pain level reassessed. Patient is alert, oriented x 3, equal unlabored respirations, skin warm/dry/pink. 14:38 Reassessment: Pt cleaned of bowel incontinence. sv 15:50 Reassessment: Patient appears in no apparent distress at this time. No changes from sv previously documented assessment. Patient and/or family updated on plan of care and expected duration. Pain level reassessed. Patient is alert, oriented x 3, equal unlabored respirations, skin warm/dry/pink. 16:30 Reassessment: Patient appears in no apparent distress at this time. Patient and/or sv family updated on plan of care and expected duration. Pain level reassessed. Patient is alert, oriented x 3, equal unlabored respirations, skin warm/dry/pink. 17:40 Reassessment: Patient appears in no apparent distress at this time. No changes from sv previously documented assessment. Patient and/or family updated on plan of care and expected duration. Pain level reassessed. Patient is alert, oriented x 3, equal unlabored respirations, skin warm/dry/pink. Vital Signs: 12:27 BP 112 / 79; Pulse 61; Resp 30; Temp 98; Pulse Ox 97% on 2 lpm NC; sv 13:38 BP 116 / 82; Pulse 96; Resp 24; Pulse Ox 100% on 3 lpm NC; sv 15:00 BP 120 / 80; Pulse 62; Resp 16; Pulse Ox 99% ; sv 16:30 BP 118 / 80; Pulse 72; Resp 16; Pulse Ox 99% ; sv 17:40 BP 111 / 88; Pulse 77; Resp 16; Pulse Ox 100% ; sv ED Course: 12:10 Patient has correct armband on for positive identification. Placed in gown. Bed in low sv position. Call light in reach. Side rails up X2. telemetry monitor on. Pulse ox on. NIBP on. Door closed. Warm blanket given. Head of bed elevated. 12:11 Patient arrived in ED. jr8 12:11 Wily Bravo PA is PHCP. jr8 12:11 Antonio Kim MD is Attending Physician. jr8 12:13 Gloria Miranda, PAULA is Primary Nurse. sv 12:15 Inserted saline lock: 20 gauge in right forearm, using aseptic technique. Blood sv collected. Flushed right forearm with 5 ml normal saline. 12:15 Arm band placed on. sv 12:27 Triage completed. sv 12:47 Carty cath inserted, using sterile technique, 16 Fr., by or, balloon inflated, to sv gravity drainage, returned clear yellow urine. Patient tolerated well. 12:57 XRAY Chest (1 view) In Process Unspecified. EDMS 13:15 EKG done, by target aircraft technician. reviewed by Wily GIORDANO. at1 13:15 First set of blood cultures drawn by me. sv 13:29 Kendrick Stevens MD is Hospitalizing Provider. jr8 13:30 Second set of blood cultures drawn by or. sv 17:42 No provider procedures requiring assistance completed. Patient admitted, IV remains in sv place. Administered Medications: 12:52 Drug: Lasix 60 mg Route: IVP; Site: right forearm; sv 13:09 Follow up: Response: No adverse reaction sv Output: 17:30 Urine: 400ml (Carty); Total: 400ml. sv Outcome: 13:30 Decision to Hospitalize by Provider. jr8 17:30 Admitted to Tele accompanied by nurse, family with patient, via stretcher, with chart, sv [facility]:30 Condition: stable 17:30 Instructed on the need for admit. 17:42 Patient left the ED. sv Signatures: Dispatcher [employer] Gloria Wolff RN RN sv Wily Bravo, GIULIANA PA jr8 Tasha Moralez, rotary soil stabilizer operator EKG Tat1 Corrections: (The following items were deleted from the chart) 12:30 12:06 Acuity: SONYA 3 sv sv 12:56 12:27 BP 112 / 79; Pulse 61bpm; Resp 30bpm; Pulse Ox 97% 2 lpm Nasal Cannula; sv sv 19:55 12:52 Reassessment: Patient appears in no apparent distress at this time. No changes sv from previously documented assessment. Patient and/or family updated on plan of care and expected duration. Pain level reassessed. Patient is alert, oriented x 3, equal unlabored respirations, skin warm/dry/pink. sv
--- NOTE | 2019-04-13 13:31 | EDPHYS ---
Physician Documentation [facility] Name: Christa Ayala Age: 73 yrs Sex: Female : 1945 Arrival Date: 04/13/2019 Time: 12:11 Bed 2 Private MD: ED Physician Antonio Kim HPI: 04/13 12:34 This 73 yrs old Black Female presents to ER via EMS with complaints of Shortness Of jr8 Breath. 12:34 The patient has shortness of breath at rest, with light activity. Onset: The jr8 symptoms/episode began/occurred gradually, 1 week(s) ago. Duration: The symptoms are continuous, and are steadily getting worse. The patient's shortness of breath is aggravated by walking. Associated signs and symptoms: Pertinent positives: lower extremity edema. Severity of symptoms: At their worst the symptoms were moderate in the emergency department the symptoms are unchanged. It is unknown whether or not the patient has had similar symptoms in the past. The patient has not recently seen a physician. Historical: - Allergies: 12:28 Codeine; sv 12:28 Demerol; sv 12:28 Iodine; sv - Home Meds: 13:42 acetaminophen 325 mg Oral tab 1 -2 tabs every 4-6 hours for Pain [Active]; aspirin 81 sv mg Oral TbEC 1 tab once daily [Active]; Aldactone 25 mg Oral tab 1 tab once daily [Active]; bumetanide 1 mg Oral tab 1 tab once daily [Active]; trelegy ellipta 100/62.5/25 mcg 1 puff daily [Active]; pantoprazole 40 mg Oral TbEC 1 tab once daily [Active]; atorvastatin 40 mg Oral tab 1 tab nightly [Active]; Plavix 75 mg Oral tab 1 tab once daily [Active]; escitalopram oxalate 10 mg Oral tab 1 tab once daily [Active]; carvedilol 3.125 mg oral tab 2 times per day [Active]; - PMHx: 12:28 Anemia; Atrial Fib; CHF; COPD; Diabetes - NIDDM; Emphysema; enlarged aorta; GERD; High sv Cholesterol; Hypertension; Myocardial infarction; - Immunization history:: Adult Immunizations up to date. - Social history:: Smoking status: Patient/guardian denies using tobacco. - Ebola Screening: : No symptoms or risks identified at this time. ROS: 12:34 Eyes: Negative for injury, pain, redness, and discharge, ENT: Negative for injury, jr8 pain, and discharge, Neck: Negative for injury, pain, and swelling, Abdomen/GI: Negative for abdominal pain, nausea, vomiting, diarrhea, and constipation, Back: Negative for injury and pain, MS/Extremity: Negative for injury and deformity, Skin: Negative for injury, rash, and discoloration, Neuro: Negative for headache, weakness, numbness, tingling, and seizure. 12:34 Cardiovascular: Positive for edema, orthopnea. 12:34 Respiratory: Positive for dyspnea on exertion, shortness of breath. Exam: 12:34 Eyes: Pupils equal round and reactive to light, extra-ocular motions intact. Lids and jr8 lashes normal. Conjunctiva and sclera are non-icteric and not injected. Cornea within normal limits. Periorbital areas with no swelling, redness, or edema. ENT: Nares patent. No nasal discharge, no septal abnormalities noted. Tympanic membranes are normal and external auditory canals are clear. Oropharynx with no redness, swelling, or masses, exudates, or evidence of obstruction, uvula midline. Mucous membranes moist. Neck: Trachea midline, no thyromegaly or masses palpated, and no cervical lymphadenopathy. Supple, full range of motion without nuchal rigidity, or vertebral point tenderness. No Meningismus. Abdomen/GI: Soft, non-tender, with normal bowel sounds. No distension or tympany. No guarding or rebound. No evidence of tenderness throughout. Back: No spinal tenderness. No costovertebral tenderness. Full range of motion. Skin: Warm, dry with normal turgor. Normal color with no rashes, no lesions, and no evidence of cellulitis. MS/ Extremity: Pulses equal, no cyanosis. Neurovascular intact. Full, normal range of motion. Neuro: Awake and alert, GCS 15, oriented to person, place, time, and situation. Cranial nerves II-XII grossly intact. Motor strength 5/5 in all extremities. Sensory grossly intact. Cerebellar exam normal. Normal gait. 12:34 Cardiovascular: Rate: normal, Rhythm: irregularly irregular, Pulses: Pulses are 2+ in right radial artery and left radial artery. Heart sounds: murmur, systolic, grade 4 over 6, heard in the aortic area, Edema: 4+ edema to level of left midcalf, left ankle, left foot, right midcalf, right ankle and right foot. 12:34 Respiratory: mild respiratory distress is noted, Respirations: tachypnea, Breath sounds: rales, that are mild, are located in both bases. Vital Signs: 12:27 BP 112 / 79; Pulse 61; Resp 30; Temp 98; Pulse Ox 97% on 2 lpm NC; sv 13:38 BP 116 / 82; Pulse 96; Resp 24; Pulse Ox 100% on 3 lpm NC; sv 15:00 BP 120 / 80; Pulse 62; Resp 16; Pulse Ox 99% ; sv 16:30 BP 118 / 80; Pulse 72; Resp 16; Pulse Ox 99% ; sv 17:40 BP 111 / 88; Pulse 77; Resp 16; Pulse Ox 100% ; sv MDM: 12:11 Patient medically screened. 13:24 Data reviewed: vital signs, nurses notes, lab test result(s), EKG, radiologic studies, jr8 plain films. Data interpreted: Pulse oximetry: on 2L(s) per nasal canula, is 94 %. Interpretation: acceptable. Counseling: I had a detailed discussion with the patient and/or guardian regarding: the historical points, exam findings, and any diagnostic results supporting the discharge/admit diagnosis, lab results, radiology results, the need for further work-up and treatment in the hospital. 04/13 12:12 Order name: Basic Metabolic Panel; Complete Time: 13:24 04/13 12:12 Order name: CBC with Diff 04/13 12:12 Order name: LFT's; Complete Time: 13:24 04/13 12:12 Order name: Magnesium; Complete Time: 13:24 04/13 12:12 Order name: NT PRO-BNP; Complete Time: 13:24 04/13 12:12 Order name: PT-INR; Complete Time: 12:53 04/13 12:12 Order name: Troponin (emerg Dept Use Only); Complete Time: 13:24 04/13 12:12 Order name: XRAY Chest (1 view); Complete Time: 13:09 04/13 12:12 Order name: EKG; Complete Time: 12:13 04/13 13:09 Order name: Blood Culture Adult (2) 10 13:09 Order name: Procalcitonin; Complete Time: 14:04 [facility] 04/13 14:11 Order name: CONS Physician Consult [facility] [place] 04/13 14:18 Order name: Manual Differential; Complete Time: 14:25 [facility] 04/13 12:12 Order name: Cardiac monitoring; Complete Time: 12: [facility] 04/13 12:12 Order name: EKG - Nurse/Tech; Complete Time: 13:00 [facility] 04/13 12:12 Order name: IV Saline Lock; Complete Time: : [facility] 04/13 12:12 Order name: Labs collected and sent; Complete Time: : [facility] 04/13 12:12 Order name: O2 Per Protocol; Complete Time: : [facility] 04/13 12:12 Order name: O2 Sat Monitoring; Complete Time: : [facility] 04/13 12:55 Order name: Carty; Complete Time: 12:55 sv Administered Medications: 12:52 Drug: Lasix 60 mg Route: IVP; Site: right forearm; sv 13:09 Follow up: Response: No adverse reaction sv Disposition: 04/13/19 13:30 Hospitalization ordered by Kendrick Stevesn for Inpatient Admission. Preliminary diagnosis are Acute combined systolic (congestive) and diastolic (congestive) heart failure, End stage renal disease. - Bed requested for Telemetry/MedSurg (Inpatient). - Status is Inpatient Admission. sv - Condition is Fair. - Problem is new. - Symptoms have improved. UTI on Admission? No Addendum: 04/16/2019 08:21 Co-signature as Attending Physician, Antonio Kim MD I agree with the assessment and c grier plan of care. Signatures: Dispatcher [employer] [facility] Gloria Miranda RN RN sv Anderson, Corey, MD MD cha Roszak, Josh, PA PA jr8 Gracie Valle Corrections: (The following items were deleted from the chart) 04/13 14:06 13:30 Hospitalization Ordered by Kendrick Stevens MD for Inpatient Admission. Preliminary eb diagnosis is Acute combined systolic (congestive) and diastolic (congestive) heart failure; End stage renal disease. Bed requested for Telemetry/MedSurg (Inpatient). Status is Inpatient Admission. Condition is Fair. Problem is new. Symptoms have improved. UTI on Admission? No. jr8 16:57 14:06 04/13/2019 13:30 Hospitalization Ordered by Kendrick Stevens MD for Inpatient eb Admission. 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 Bed requested for Telemetry/MedSurg (Inpatient). Status is Inpatient Admission. Condition is Fair. Problem is new. Symptoms have improved. UTI on Admission? No. eb 17:42 16:57 04/13/2019 13:30 Hospitalization Ordered by Kendrick Stevens MD for Inpatient sv Admission. 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 Bed requested for Telemetry/MedSurg (Inpatient). Status is Inpatient Admission. Condition is Fair. Problem is new. Symptoms have improved. UTI on Admission? No. eb
[2019-04-13 14:18] LABS: Platelet Estimate ADEQ
[2019-04-13 14:19] LABS: Anisocytosis 1+; Blood Morphology Comment NOTED (NOT SEEN); Burr Cells 1+; Elliptocytes 1+; Hypochromasia 1+; Poikilocytosis 1+
--- NOTE | 2019-04-13 15:35 | EKG ---
Test Date: 2019-04-13 Test Time: 13:00:59 Social Media Marketing Specialist: HAMMAD MEASUREMENT RESULTS: Intervals: Rate: 74 PA: 186 QRSD: 100 QT: 414 QTc: 459 Barnhart: P: 36 PA: 186 QRS: 11 T: 85 INTERPRETIVE STATEMENTS: Normal sinus rhythm Nonspecific T wave abnormality Abnormal ECG Compared to ECG 01/16/2019 07:30:15 T-wave abnormality now present First degree AV block no longer present ST (T wave) deviation no longer present Electronically Signed On 04-13-19 15:34:15 [employer] by John Foster
[2019-04-13] MEDS ORDERED: D50W 25 GM/50 ML SYRINGE/VIAL IV PRN (17:11)
[2019-04-13] MEDS ORDERED: ONDANSETRON 4 MG/2 ML VIAL IV PRN (17:11)
[2019-04-13] MEDS ORDERED: GLUCAGON 1 MG/VIAL IM PRN (17:11)
[2019-04-13] MEDS: INSULIN -REGULAR HUMAN 50 UNIT/0.5 ML ML SQ SCH ×2 (17:11→20:35)
[2019-04-13 17:56] VITALS: BMI 20.6
[2019-04-13] MEDS: FUROSEMIDE 20 MG/ 2ML VIAL IV SCH (18:25)
--- NOTE | 2019-04-13 20:15 | CON ---
Identification: A 73-year-old woman. Reason For Hospitalization: Congestive heart failure out of control. Chief Complaint: Edema, weight gain. History Of Present Illness: Ms. Ayala has nonischemic cardiomyopathy. Her ejection fraction is e xtremely low. The last time we did an echocardiogram was in January 2019. At that point, her ejecti on fraction was 45%. Other echocardiograms have been much lower. We do not have the list of the pat ient's medicines, but she was taking Entresto, Lasix, and Coreg. She has a LifeVest, but not an impl anted defibrillator. The LifeVest has not shocked her any time recently. She had been on milrinone drip that I believe that had been discontinued sometime after her last [place]. Physical Examination: General: The patient is alert, oriented, pleasant. She looks chronically ill. Lungs: Reveal mild diffuse fine pulmonary crackles more consistent with pulmonary fibrosis than shar a. Heart: Reveals S3 gallop. Abdomen: Soft. Extremities: Reveal 3 to 4+ pitting edema. There are no ulcers or wounds. Impression And Plan: The patient needs diuresis above and beyond what she has been getting at home. We will have to go over her outpatient medicines carefully. Right now, we do not really know what s he has been getting, but she will get Lasix 100 mg IV twice a day until the edema is gone. Thank you very much for your kind referral of Ms. Ayala. I will follow her with you. DOMITILA/CHRISTY Voice ID: [id number] Report ID: [id number]
[2019-04-13] MEDS: ALBUTEROL 2.5 MG/3 ML NEB SOL NEB PRN (22:55)
[2019-04-13] MEDS: IPRATROPIUM BROM 0.5MG/2.5ML NEB PRN (22:55)
[2019-04-14 00:14] LABS: Arterial Blood Carboxyhemoglob 2.7 % (0-1.5); Blood Gas Oxyhemoglobin 89.3 % (94-97); Blood O2 Saturation 92.3 % (92-98.5)
[2019-04-14] MEDS ORDERED: FUROSEMIDE 40 MG/4 ML VIAL IV ONE ×2 (00:23→06:00)
[2019-04-14 05:51] LABS: Absolute Lymphocytes (CBC) 0.5 K/uL (0.7-4.9); Basophils % 0.9 % (0-1.3); Hematocrit 31.7 % (36.0-45.0); Lymphocytes % 9.6 % (15.3-44.8); MPV 9.1 fL (7.6-11.3); RBC Red Blood Cell Count 3.29 M/uL (3.86-4.86)
[2019-04-14 06:11] LABS: Potassium 3.9 mmol/L (3.5-5.1)
[2019-04-14] MEDS: INSULIN -REGULAR HUMAN 50 UNIT/0.5 ML ML SQ SCH ×4 (07:30→20:25)
--- NOTE | 2019-04-14 08:05 | P.PN ---
Date of Service: 04/13/19 Rapid response was called on the patient because respiratory therapist could not detected oxygen saturation. Patient seen and examined. She appear to be in moderate respiratory distress. No acute change since hospitalization. Prolonged auscultation revealed clear lungs and diminished breath sounds. Chest x-ray reviewed. Arterial blood gas: Mild CO2 retention and hypoxemia. Patient placed on BiPAP.
[2019-04-14 08:41] LABS: Arterial Blood Carboxyhemoglob 2.4 % (0-1.5); Blood Gas Oxyhemoglobin 97.5 % (94-97)
[2019-04-14] MEDS: ASPIRIN 81 MG CHEWABLE TABLET PO SCH (08:41)
[2019-04-14] MEDS: FUROSEMIDE 20 MG/ 2ML VIAL IV SCH (08:47)
[2019-04-14] MEDS: CLOPIDOGREL 75 MG TABLET PO SCH (08:48)
[2019-04-14] MEDS: PANTOPRAZOLE 40MG TABLET PO SCH (08:48)
[2019-04-14] MEDS: ESCITALOPRAM 20 MG TAB PO SCH (08:48)
[2019-04-14] MEDS: SPIRONOLACTONE 25 MG TABLET PO SCH (08:49)
[2019-04-14] MEDS: TRELEGY ELLIPTA IH SCH (11:30)
--- NOTE | 2019-04-14 12:02 | CON ---
Mrs. Ayala has end-stage heart disease. She is getting some diuresis. She probably needs some mo re. Her edema in her legs has gone down. Her dose of furosemide is 40 b.i.d. I think we should go up to 80 b.i.d. on that and tomorrow we will see how she tolerates the lower amount of fluid. She is no longer on milrinone. She remains on spironolactone, furosemide, I do not see that she is on Entr esto. She had been on Entresto, that should be continued. It is possible that her heart failure tea m in [place] stop that because of hypotension, which is a problem for her. Presently, her blood pres sure is 122/89. DOMITILA/CHRISTY Voice ID: [id number] Report ID: [id number]
--- NOTE | 2019-04-14 12:41 | P.PN ---
Date of Service: 04/14/19 claled to see patient on bipap , s/p COIL CUTTER last pm and started on bipap , now conversant but but confused , repeat ABG ordered and obtained with improved p02 to 267 , i ask RT to switch patient to [place] 02 . patient is a patient of Dr Stevens , will have him continued follow up of Pt
[2019-04-14] MEDS ORDERED: BUMETANIDE 1 MG TABLET PO ONE ×2 (15:00→21:00)
--- NOTE | 2019-04-14 16:22 | P.CNS ---
Date of Consult: 04/14/19 Reason for Consult: CKD , fluid overload Chief Complaint: SOB History of Present Illness: A 73 Y/o AA woman , with PMHX of CHF, CKD III, DM and HTN pt presented with SOB pt presented with progressively worsening SOB this morning was hypoxic placed on BiPAP, she still have significant edema shed denied chest pain, palpitation, nausea , vomiting, diarrhea, fever or chills Allergies iodine Allergy (Mild, Verified 06/03/18 18:17) Itching/Hives/Rash codeine Adverse Reaction (Intermediate, Verified 06/03/18 18:17) Hives/Rash Home Medications: Acetaminophen [Tylenol*] 2 tab PO Q4H PRN 04/13/19 Aspirin 1 tab PO DAILY 04/13/19 Atorvastatin Calcium [Lipitor*] 40 mg PO BEDTIME 04/13/19 Bumetanide [Bumex*] 1 mg PO DAILY 04/13/19 Carvedilol [Coreg] 1 tab PO BID 04/13/19 Clopidogrel Bisulfate [Plavix*] 1 tab PO DAILY 04/13/19 Escitalopram Oxalate 1 tab PO DAILY 04/13/19 Fluticasone/Umeclidin/Vilanter [Trelegy Ellipta 100-62.5-25] 1 puff IN DAILY 01/21 Pantoprazole [Protonix Tab*] 40 mg PO DAILY 04/13/19 Spironolactone [Aldactone*] 25 mg PO DAILY 04/13/19 - Past Medical/Surgical History Diabetic: Yes -: HTN -: Hyperlipidemia -: Diabetes mellitus type 2 [id number] -: COPD, oxygen-dependent 2L NC -: CAD with prior stent -: Systolic congestive heart failure, ejection fraction 30% -: Thoracic aortic aneurysm -: Chronic kidney disease -: Anemia of chronic disease -: GERD -: Former tobacco use -: atrial fibrillation -: Hiatal hernia repair -: Aortic aneurysm -: 2 cardiac stents (2010) Psychosocial/ Personal History: Patient is - Family History Father Medical History: Heart disease Mother Medical History: Diabetes Sister Medical History: Diabetes - Social History Smoking Status: Unknown if ever smoked Alcohol use: No CD- Drugs: No Caffeine use: No Review of Systems As in HPI Physical Examination Temp Pulse Resp BP Pulse Ox 97.7 F 89 20 110/74 97 04/14/19 12:00 04/14/19 12:00 04/14/19 12:00 04/14/19 12:00 04/14/19 12:00 General: Alert, Mild distress HEENT: Atraumatic, Normocephalic Neck: Supple, 2+ carotid pulse no bruit Respiratory: Diminished Cardiovascular: Regular rate/rhythm, No gallops, No rubs, No murmurs, Edema Gastrointestinal: Soft and benign, Non-distended, No tenderness Musculoskeletal: No clubbing, Swelling Integumentary: No rashes Conclusions/Impression: CKD III cr stable at baseline renal dose meds will get UA and US avoid NSAID and contrast mild anemia will order anemia w/u CHF Bumex increased today will rpt CXR tomorrow Fluid overalod cont Bumex HTN controlled Dm as per PCP
[2019-04-14] MEDS ORDERED: FUROSEMIDE 20 MG/ 2ML VIAL IV SCH (17:00)
[2019-04-14 17:10] LABS: Urine Appearance CLOUDY; Urine Bilirubin NEGATIVE (NEG); Urine Blood 3+ (NEG); Urine Color YELLOW; Urine Glucose NEGATIVE (NEG); Urine Protein NEGATIVE (NEG)
[2019-04-14 17:23] LABS: Urine Microscopic Reflex ORDER UMIC
[2019-04-14 17:34] LABS: Urine RBC 20-50 /HPF (NONE SEEN)
[2019-04-14 17:35] LABS: Urine Bacteria >50 /HPF (<20); Urine Culture Reflex Order REFLEXED
[2019-04-14] MEDS: carvediloL 3.125 MG TAB PO SCH (17:50)
[2019-04-14] MEDS: GLUCERNA SHAKE 237 ML CAN PO SCH (20:25)
[2019-04-14] MEDS: ATORVASTATIN 20 MG TAB PO SCH (20:25)
--- NOTE | 2019-04-14 22:08 | HP ---
Date of Admission: 04/13/2019 Chief Complaint: Shortness of breath, swollen legs, weight gain. History Of Present Illness: Patient has a long history of hospitalization for recurrent episodes of CHF. Over the past few days, she stated confirmed by her home health nurse that she is getting incre ased edema in her legs. At time, she presented to the emergency room. She stated they were much mor e swollen than usual all the way up to her knees and that she had begin to get short of breath. As m entioned, the patient has numerous admissions for this and her medication that she has been taking grier s not significantly changed over the past few weeks. She has recently seen a body shop technician and lawrence merino. In the past, she has taken multiple variables of beta-blockers, diuretics, and then dressed so wh ich she has been off and on as well. She has been under the care of some fixed interest dealer in [place] as well as locally. She has a LifeVest, but not the implanted defibrillator. She also has been on milr inone drip, but that has been stopped after last episode which were amongst the most severe and requi red some temporary intubation. Past History: As above. Family History: Noncontributory. Social History: Patient has no alcohol intake and/or nicotine over the past few years. Physical Examination: General: Patient is an elderly female in mild respiratory distress. Vital Signs: Stable vital signs. Head and Neck: Normocephalic. Pupils equal, reactive to light and accommodation. Fundi negative. Trachea midline. Thyroid not palpable. ENT: Negative. Chest: High-pitched rhonchi and rales bilaterally. Cardiovascular: PMI in midclavicular line. Heart sounds normal. Peripheral pulses present and equa l bilaterally. Abdomen: No organomegaly. Bowel sounds present. Extremities: +3 pitting edema bilaterally in the legs. Rectal/Pelvic: Deferred. Impression: Acute exacerbation of congestive heart failure with marked peripheral edema. Plan: Patient will be admitted and aggressively diuresed depending on what it takes to do of her blo od work. Determine the eventual changes in her medication. It should be noted at home she uses oxyg en at 3 L. Consultation will also be done with Cardiology, Pulmonology, and Nephrology. She also grier s had some significant renal insufficiency problems as well. HR/MODL Voice ID: [id number]
--- NOTE | 2019-04-14 22:14 | PN ---
Date of Progress Note: 04/14/2019 Patient has a significant decrease in her breathing ability late last night, required temporary use o f BiPAP, and seen this morning. She was considerably better. Her edema has gone down markedly as we ll. This is on extensive Lasix IV and she will observe for another 24 hours, perhaps she could go ho me tomorrow depending on her response of sudden oxygen requirements. HR/MODL Voice ID: [id number] Report ID: [id number]
[2019-04-15] MEDS: ALBUTEROL 2.5 MG/3 ML NEB SOL NEB PRN ×3 (01:12→20:55)
[2019-04-15] MEDS: IPRATROPIUM BROM 0.5MG/2.5ML NEB PRN ×3 (01:12→20:55)
[2019-04-15] MEDS: carvediloL 3.125 MG TAB PO SCH ×2 (05:42→17:26)
[2019-04-15 06:02] LABS: Urine Protein/Creatinine Ratio 1.37 ratio (<0.15)
[2019-04-15] MEDS: INSULIN -REGULAR HUMAN 50 UNIT/0.5 ML ML SQ SCH ×4 (07:30→21:00)
[2019-04-15 07:44] LABS: Creatine Phosphokinase 41 U/L (26-192); Ferritin 100.9 ng/mL (8-388); Folic Acid, (Folate) > 20.0 ng/mL (3.1-17.5); Transferrin 219 mg/dL (200-360); Uric Acid 10.9 mg/dL (2.6-6.0)
[2019-04-15] MEDS: BUMETANIDE 1 MG TABLET PO SCH (08:47)
[2019-04-15] MEDS: ESCITALOPRAM 20 MG TAB PO SCH (08:47)
[2019-04-15] MEDS: PANTOPRAZOLE 40MG TABLET PO SCH (08:48)
[2019-04-15] MEDS: ASPIRIN 81 MG CHEWABLE TABLET PO SCH (08:48)
[2019-04-15] MEDS: LOSARTAN POTASSIUM 50 MG TABLET PO SCH (08:48)
[2019-04-15] MEDS: CLOPIDOGREL 75 MG TABLET PO SCH (08:48)
[2019-04-15] MEDS: SPIRONOLACTONE 25 MG TABLET PO SCH (08:48)
[2019-04-15] MEDS: TRELEGY ELLIPTA IH SCH (08:55)
[2019-04-15] MEDS: GLUCERNA SHAKE 237 ML CAN PO SCH ×3 (08:58→21:56)
--- NOTE | 2019-04-15 10:32 | P.PN ---
Subjective Date of Service: 04/15/19 Chief Complaint: SOB Subjective: Improving subjective Pt with CHF and CKD III admitted for SOB today now feels better CXR with worsening effusion started on ARB UO only 1000ml last 24hrs , Bumex switched to PO I will give one IV dose tonight will start IV iron Allergies iodine Allergy (Mild, Verified 06/03/18 18:17) Itching/Hives/Rash codeine Adverse Reaction (Intermediate, Verified 06/03/18 18:17) Hives/Rash Home Medications: Acetaminophen [Tylenol*] 2 tab PO Q4H PRN 04/13/19 Aspirin 1 tab PO DAILY 04/13/19 Atorvastatin Calcium [Lipitor*] 40 mg PO BEDTIME 04/13/19 Bumetanide [Bumex*] 1 mg PO DAILY 04/13/19 Carvedilol [Coreg] 1 tab PO BID 04/13/19 Clopidogrel Bisulfate [Plavix*] 1 tab PO DAILY 04/13/19 Escitalopram Oxalate 1 tab PO DAILY 04/13/19 Fluticasone/Umeclidin/Vilanter [Trelegy Ellipta 100-62.5-25] 1 puff IN DAILY 01/21 Pantoprazole [Protonix Tab*] 40 mg PO DAILY 04/13/19 Spironolactone [Aldactone*] 25 mg PO DAILY 04/13/19 - Past Medical/Surgical History Diabetic: Yes -: HTN -: Hyperlipidemia -: Diabetes mellitus type 2 [id number] -: COPD, oxygen-dependent 2L NC -: CAD with prior stent -: Systolic congestive heart failure, ejection fraction 30% -: Thoracic aortic aneurysm -: Chronic kidney disease -: Anemia of chronic disease -: GERD -: Former tobacco use -: atrial fibrillation -: Hiatal hernia repair -: Aortic aneurysm -: 2 cardiac stents (2010) Psychosocial/ Personal History: Patient is - Family History Father Medical History: Heart disease Mother Medical History: Diabetes Sister Medical History: Diabetes - Social History Smoking Status: Unknown if ever smoked Alcohol use: No CD- Drugs: No Caffeine use: No Review of Systems As in HPI Physical Examination Temp Pulse Resp BP Pulse Ox 97.7 F 89 20 110/74 97 04/14/19 12:00 04/14/19 12:00 04/14/19 12:00 04/14/19 12:00 04/14/19 12:00 General: Alert, Mild distress HEENT: Atraumatic, Normocephalic Neck: Supple, 2+ carotid pulse no bruit Respiratory: Diminished Rt >Lt Cardiovascular: Regular rate/rhythm, No gallops, No rubs, No murmurs, Edema Gastrointestinal: Soft and benign, Non-distended, No tenderness Musculoskeletal: +2 edema Integumentary: No rashes Conclusions/Impression: CKD III cr stable at baseline renal dose meds will get UA and US avoid NSAID and contrast mild anemia will start IV iron CHF BUmex switched to PO still have significant edema will extra IV dose tonight Fluid overalod cont Bumex will extra IV dose tonight HTN controlled Dm as per PCP Physical Examination - Vital Signs Temperature: 97.4 F Blood Pressure: 108/74 Pulse: 98 Respirations: 18 Pulse Ox (%): 92
--- NOTE | 2019-04-15 10:38 | RAD REPORT ---
EXAM DESCRIPTION: RAD - Chest Single View - 04/15/2019 6:38 am CLINICAL HISTORY: sob Chest pain. COMPARISON: Chest Single View dated 04/13/2019; Chest Single View dated 01/15/2019; Chest Single View dated 01/01/2019; Chest Single View dated 12/24/2018 FINDINGS: Portable technique limits examination quality. Small to moderate right pleural effusion suspected. Mild interstitial pulmonary edema is unchanged. T he heart is moderately enlarged with a tortuous aorta with stent in place. No displaced fractures.
--- NOTE | 2019-04-15 10:53 | P.CNS ---
Date of Consult: 04/15/19 Reason for Consult: Short of breath lower extremity edema Chief Complaint: SOB History of Present Illness: Patient is 73 years of age evaluated by me in my clinic recently came into the hospital worsening lower extremity edema at started the patient on spironolactone the patient call me on Tuesday stain that her lower extremity edema is worse I would advise her to increase the diuretics meanwhile she and appeared in the hospital shortness breath is slightly worse patient has chronic renal failure. Patient denies any fever chills cough sputum hemoptysis compliant with her bronchodilators and has home oxygen denies any chest pain significant history of coronary artery disease Allergies iodine Allergy (Mild, Verified 06/03/18 18:17) Itching/Hives/Rash codeine Adverse Reaction (Intermediate, Verified 06/03/18 18:17) Hives/Rash Home Medications: Acetaminophen [Tylenol*] 2 tab PO Q4H PRN 04/13/19 Aspirin 1 tab PO DAILY 04/13/19 Atorvastatin Calcium [Lipitor*] 40 mg PO BEDTIME 04/13/19 Bumetanide [Bumex*] 1 mg PO DAILY 04/13/19 Carvedilol [Coreg] 1 tab PO BID 04/13/19 Clopidogrel Bisulfate [Plavix*] 1 tab PO DAILY 04/13/19 Escitalopram Oxalate 1 tab PO DAILY 04/13/19 Fluticasone/Umeclidin/Vilanter [Trelegy Ellipta 100-62.5-25] 1 puff IN DAILY 01/21 Pantoprazole [Protonix Tab*] 40 mg PO DAILY 04/13/19 Spironolactone [Aldactone*] 25 mg PO DAILY 04/13/19 Insulin Aspart [Novolog Flexpen] 14 units SQ DAILY PRN 04/14/19 Isosorbide Mononitrate [Isosorbide Mononitrate ER] 30 mg PO DAILY 04/14/19 - Past Medical/Surgical History Diabetic: Yes -: HTN -: Hyperlipidemia -: Diabetes mellitus type 2 [id number] -: COPD, oxygen-dependent 2L NC -: CAD with prior stent -: Systolic congestive heart failure, ejection fraction 30% -: Thoracic aortic aneurysm -: Chronic kidney disease -: Anemia of chronic disease -: GERD -: Former tobacco use -: atrial fibrillation -: Hiatal hernia repair -: Aortic aneurysm -: 2 cardiac stents (2010) Psychosocial/ Personal History: Patient is - Family History Father Medical History: Heart disease Mother Medical History: Diabetes Sister Medical History: Diabetes - Social History Smoking Status: Unknown if ever smoked Alcohol use: No CD- Drugs: No Caffeine use: No Review of Systems 10-point ROS is otherwise unremarkable General: Weakness Respiratory: Shortness of Breath Cardiovascular: Edema Physical Examination Temp Pulse Resp BP Pulse Ox 97.4 F 98 H 18 108/74 92 04/15/19 10:32 04/15/19 10:32 04/15/19 10:32 04/15/19 10:32 04/15/19 10:32 General: Alert, In no apparent distress, Oriented x3 Respiratory: Clear to auscultation bilaterally Cardiovascular: Normal pulses, Normal S1 S2, Edema (3+ it lower extremity edema) Gastrointestinal: Normal bowel sounds, Soft and benign Musculoskeletal: No clubbing Integumentary: No rashes, No breakdown - Problems (1) COPD with exacerbation Onset Date: 04/25/17 Current Visit: No Status: Acute Plan: Patient is 73 years of age with a history of COPD on oxygen bronchodilators at home admitted with worsening lower extremity edema BNP was over 80,000 patient has chronic renal insufficiency which has been improving vital signs all stable chest x-ray rotated also has stent placed in the aorta normal sinus rhythm rate controlled patient has some mild congestive heart failure moderate pulmonary hypertension feeling better still edematous patient is mildly hypoxic hypercapnic repeat PA and lateral chest x-ray on Plavix possible discharge home tomorrow
--- NOTE | 2019-04-15 12:49 | RAD REPORT ---
EXAM DESCRIPTION: US - Renal Ultrasound-Complete - 04/15/2019 12:35 pm CLINICAL HISTORY: javier Flank pain COMPARISON: Renal Ultrasound-Complete dated 04/10/2018 FINDINGS: Echogenic kidneys are present with small cysts bilaterally. Mild perinephric fluid is seen . The right kidney measures 9.7 x 4.9 x 4.9 cm. No hydronephrosis. The left kidney measures 9.2 x 4.1 x 3.9 cm. No hydronephrosis. The urinary bladder is incompletely distended without gross abnormality seen. IMPRESSION: Echogenic kidneys are present bilaterally compatible with medical renal disease. No hydronephrosis.
--- NOTE | 2019-04-15 14:46 | PN ---
Ms. Ayala seems to be doing well. She will have an echo tomorrow. Her blood pressure is good. H er edema has gone down. According to scales, her weight has gone up, but she has had a diuresis acco rding to physical exam. I suspect, our present medical regimen is helpful to her and if she is disch arged, she should go home taking exact medicine regimen. DOMITILA/CHRISTY Voice ID: [id number] Report ID: [id number]
[2019-04-15] MEDS ORDERED: BUMETANIDE 1 MG/4 ML VIAL IV ONE (18:00)
--- NOTE | 2019-04-15 19:09 | RAD REPORT ---
EXAM DESCRIPTION: RAD - Chest Single View - 04/15/2019 6:49 pm CLINICAL HISTORY: shortness of breath Chest pain. COMPARISON: Chest Single View dated 04/15/2019; Chest Single View dated 04/13/2019; Chest Single View dated 01/15/2019; Chest Single View dated 01/01/2019 FINDINGS: Portable technique limits examination quality. Mild interstitial pulmonary edema. Small right pleural effusion is noted. The heart is enlarged with a tortuous thoracic aorta. Stent material is present in the descending thoracic aorta. IMPRESSION: Mild CHF is suspected.
[2019-04-15] MEDS: ATORVASTATIN 20 MG TAB PO SCH (21:22)
[2019-04-16] MEDS: carvediloL 3.125 MG TAB PO SCH ×2 (07:27→17:12)
[2019-04-16] MEDS: INSULIN -REGULAR HUMAN 50 UNIT/0.5 ML ML SQ SCH ×4 (07:30→20:51)
[2019-04-16] MEDS: ESCITALOPRAM 20 MG TAB PO SCH (08:55)
[2019-04-16] MEDS: LOSARTAN POTASSIUM 50 MG TABLET PO SCH (08:55)
[2019-04-16] MEDS: SPIRONOLACTONE 25 MG TABLET PO SCH (08:55)
[2019-04-16] MEDS: ASPIRIN 81 MG CHEWABLE TABLET PO SCH (08:56)
[2019-04-16] MEDS: BUMETANIDE 1 MG TABLET PO SCH (08:56)
[2019-04-16] MEDS: PANTOPRAZOLE 40MG TABLET PO SCH (08:56)
[2019-04-16] MEDS: CLOPIDOGREL 75 MG TABLET PO SCH (08:56)
[2019-04-16] MEDS: TRELEGY ELLIPTA IH SCH (08:57)
[2019-04-16] MEDS: GLUCERNA SHAKE 237 ML CAN PO SCH ×2 (08:57→20:51)
[2019-04-16] MEDS: ATORVASTATIN 20 MG TAB PO SCH (20:50)
[2019-04-16] MEDS: ALBUTEROL 2.5 MG/3 ML NEB SOL NEB PRN (21:40)
[2019-04-16] MEDS: IPRATROPIUM BROM 0.5MG/2.5ML NEB PRN (21:40)
[2019-04-17 05:58] LABS: Magnesium 2.3 mg/dL (1.8-2.4); Phosphorus 3.2 mg/dL (2.5-4.9); Potassium 4.5 mmol/L (3.5-5.1)
[2019-04-17] MEDS: carvediloL 3.125 MG TAB PO SCH ×2 (06:10→18:13)
[2019-04-17] MEDS: INSULIN -REGULAR HUMAN 50 UNIT/0.5 ML ML SQ SCH ×4 (07:30→21:20)
[2019-04-17] MEDS: BUMETANIDE 1 MG TABLET PO SCH (08:51)
[2019-04-17] MEDS: SPIRONOLACTONE 25 MG TABLET PO SCH (08:51)
[2019-04-17] MEDS: PANTOPRAZOLE 40MG TABLET PO SCH (08:51)
[2019-04-17] MEDS: LOSARTAN POTASSIUM 50 MG TABLET PO SCH (08:52)
[2019-04-17] MEDS: CLOPIDOGREL 75 MG TABLET PO SCH (08:52)
[2019-04-17] MEDS: ESCITALOPRAM 20 MG TAB PO SCH (08:52)
[2019-04-17] MEDS: ASPIRIN 81 MG CHEWABLE TABLET PO SCH (08:52)
[2019-04-17] MEDS: TRELEGY ELLIPTA IH SCH (08:53)
--- NOTE | 2019-04-17 08:53 | P.PN ---
Subjective Date of Service: 04/17/19 Chief Complaint: COPD exacerbation Subjective: Improving (Patient is improving edema declined no new complaints feeling better) Review of Systems General: Weakness Respiratory: Shortness of Breath Cardiovascular: Edema Physical Examination - Vital Signs Temperature: 97.7 F Blood Pressure: 135/64 Pulse: 96 Respirations: 18 Pulse Ox (%): 96 - Physical Exam General: Alert, In no apparent distress, Oriented x3 Respiratory: Clear to auscultation bilaterally, Diminished Cardiovascular: Edema (2+ edema) Assessment & Plan - Problems (Diagnosis) (1) COPD with exacerbation Onset Date: 04/25/17 Current Visit: No Status: Acute Plan: Patient admitted with COPD exacerbation is doing much better edema has declined and be discharged home on low-dose spironolactone and l loop diuretic patient's renal function is slightly worse vital signs stable
[2019-04-17] MEDS: GLUCERNA SHAKE 237 ML CAN PO SCH ×2 (10:42→20:53)
[2019-04-17] MEDS: ALBUTEROL 2.5 MG/3 ML NEB SOL NEB PRN ×3 (11:30→19:50)
[2019-04-17] MEDS: IPRATROPIUM BROM 0.5MG/2.5ML NEB PRN ×3 (11:30→19:50)
--- NOTE | 2019-04-17 12:35 | PN ---
Date of Progress Note: 04/16/2019 Chief Complaint: Congestive heart failure, cardiorenal syndrome, hypoxemia, respiratory failure, chr onic kidney disease stage 3. History Of Present Illness: Patient is feeling better. Chest x-ray show worsening of the effusion. Patient was started on angiotensin receptor presley. Urine output remains adequate. Patient is on Bumex and was switched to p.o. Bumex. Review of Systems: Patient denies chest pain, palpitation, cough. Physical Examination: Lungs: Coarse breath sound bilaterally. Heart: S1, S2. Abdomen: Soft, benign. Extremities: Slight edema. Laboratory Data: Sodium 144, potassium 3.9, chloride 110, CO2 26, BUN 60, creatinine 1.59, calcium 8 .2. Impression And Plan: 1.Prerenal azotemia, cardiorenal syndrome, hnrlr-wr-rfrovsj kidney injury. Electrolytes within norm al limits. Continue diuretic for volume control and management of congestive heart failure. 2.Hypertension. Blood pressure controlled. 3.Continue Bumex and monitor urine output. Patient has cardiorenal syndrome, hypertension, and diab etes mellitus with renal manifestation. Continue angiotensin receptor presley. 4.Fluid overload. Continue low-sodium diet and diuretic management. Avoid nonsteroidal anti-inflam matory medication. EB/MODL Voice ID: [id number] Report ID: [id number]
--- NOTE | 2019-04-17 13:53 | RAD REPORT ---
EXAM DESCRIPTION: RAD - Chest Pa And Lat (2 Views) - 04/17/2019 1:44 pm CLINICAL HISTORY: Pleural Effusion COMPARISON: Chest Single View dated 04/15/2019; Chest Single View dated 04/15/2019 TECHNIQUE: Frontal and lateral views of the chest were obtained. FINDINGS: The lungs are normal volume for the patient. No focal mass or consolidation in the upper r ight lung field or left hemithorax. Interstitial pattern in these areas has not changed. Right pleural effusion is present small to moderate in size. This is not substantially different from comparison. Cardiomediastinal silhouette is stable. Patient has extensive stenting of the descending thoracic aorta. No new mediastinal finding. No pneumothorax. No acute bony finding noted. No acute aortic fin ding identifiable. IMPRESSION: Small to moderate right-sided pleural effusion not substantially different from prior im aging.
--- NOTE | 2019-04-17 18:23 | PN ---
Date of Progress Note: 04/17/2019 Subjective: The patient was admitted with CHF exacerbation. Patient being on diuresis. Physical Examination: Vital Signs: Blood pressure 135/64, pulse of 96, afebrile. The patient had good urine output of 120 0 negative . Chest: Crackles at bilateral bases. Heart: S1, S2. Regular. Abdomen: Soft, nontender. Extremities: Trace edema. Laboratory Data: H and H 9.6/31.7. Sodium 143, potassium 4.5, bicarb 30, BUN 61, creatinine 1.7, ca lcium 8.2. Phosphorus 3.2, magnesium 2.3. Current Medications: The patient on which include Plavix, breathing treatment, aspirin, carvedilol _ , losartan 50, spironolactone 25, citalopram, Bumex 2 mg daily, pantoprazole, Zofran. Imaging: Chest x-ray done today showing cardiomegaly with right-sided pleural effusion, which is not much different than the 10th. Assessment And Plan: 1.Acute kidney disease on chronic kidney disease secondary to cardiorenal, looked to me on the sherly l volume side. I am going to go ahead and decrease Bumex to 1 mg. Continue spironolactone and we wi ll follow up the patient. 2.Hypertension, controlled, optimal. Continue current medication except adjusting the Bumex as above. 3.Congestive heart failure exacerbation as above. DANNY Voice ID: [id number] Report ID: [id number]
[2019-04-17] MEDS: ATORVASTATIN 20 MG TAB PO SCH (20:52)
--- NOTE | 2019-04-17 21:38 | PN ---
Date of Progress Note: 04/17/2019 She was admitted by Dr. Stevens on 04/13/2019 for COPD and CHF exacerbation. Ms. Ayala has severe congestive heart failure, end-stage. She has chronic renal disease stage 3, hypertension, diabetes, dyslipidemia, coronary artery disease, atrial fibrillation. She is on home oxygen. She has an abdo malissa aortic aneurysm, status post surgical repair in the past. She is now on aspirin, Lipitor, Bume x, Aldactone, Plavix, Coreg, insulin inhalers, losartan, and Aldactone. All that is very appropriate therapy. Today, she is in a very pleasant mood, smiling, watching television, having breakfast. Donya dobbins had some expiratory wheezing on exam, but no rales. Legs showed no edema. Her rhythm is normal. I am comfortable with her going home on her present regimen and we will see her in the office in the near future. PHILL/CHRISTY Voice ID: [id number] Report ID: [id number]
[2019-04-18] MEDS: carvediloL 3.125 MG TAB PO SCH ×2 (06:05→18:32)
[2019-04-18] MEDS: INSULIN -REGULAR HUMAN 50 UNIT/0.5 ML ML SQ SCH ×4 (07:30→21:11)
[2019-04-18] MEDS: ALBUTEROL 2.5 MG/3 ML NEB SOL NEB PRN ×2 (07:45→13:40)
[2019-04-18] MEDS: IPRATROPIUM BROM 0.5MG/2.5ML NEB PRN ×2 (07:45→13:40)
[2019-04-18] MEDS: BUMETANIDE 1 MG TABLET PO SCH (08:13)
[2019-04-18] MEDS: PANTOPRAZOLE 40MG TABLET PO SCH (08:13)
[2019-04-18] MEDS: ESCITALOPRAM 20 MG TAB PO SCH (08:13)
[2019-04-18] MEDS: CLOPIDOGREL 75 MG TABLET PO SCH (08:13)
[2019-04-18] MEDS: ASPIRIN 81 MG CHEWABLE TABLET PO SCH (08:13)
[2019-04-18] MEDS: SPIRONOLACTONE 25 MG TABLET PO SCH (08:14)
[2019-04-18] MEDS: LOSARTAN POTASSIUM 50 MG TABLET PO SCH ×2 (08:16→12:24)
[2019-04-18] MEDS: TRELEGY ELLIPTA IH SCH (08:17)
[2019-04-18] MEDS: GLUCERNA SHAKE 237 ML CAN PO SCH ×2 (08:41→20:56)
[2019-04-18 10:52] LABS: Potassium 4.9 mmol/L (3.5-5.1)
[2019-04-18 15:25] LABS: Blood O2 Saturation 92.2 % (92-98.5)
[2019-04-18] MEDS: ATORVASTATIN 20 MG TAB PO SCH (20:56)
[2019-04-18] MEDS: Levofloxacin500mg IV 500 MG/100 ML BAG IV SCH (21:11)
--- NOTE | 2019-04-18 21:35 | PN ---
Date of Progress Note: 04/17/2019 Patient has a similar pattern over the past 24-48 hours. She seems considerably better in the mornin g by considerably better and back to baseline. As the day progresses, she becomes increasing dyspnei c and on 2 occasions has required BiPAP to get her oxygen an acceptable level. She is being seen by Cardiology and Nephrology and Pulmonology. The discussion with Dr. Webb will lead to the possibi lity of her reentering a SNF unit for improvement in both her strength, coordination, and oxygen janeth toring, so this will be seen as she can be accepted and if so, we will transfer the next day or so. Otherwise, if she continues at this rate, not requiring BiPAP because she does not use CPAP at home a s yet either, she will be discharged. We will discuss further with social work therapist. HR/MODL Voice ID: [id number] Report ID: [id number]
--- NOTE | 2019-04-18 22:14 | PN ---
Date of Progress Note: 04/18/2019 The patient has had a similar scenario today as in the past day or so. She seems fairly controlled i n the morning and when I saw her late this afternoon, she complained of significant dyspnea, was anor ectic and seen to have some labored breathing. However, her O2 saturations were still reasonable. B lood gases earlier today showed improvement from yesterday. I am not sure the etiology of the diffic ulty breathing whether there is an anxiety component or not, so she is requesting the BiPAP. She arana s feel better when she is on it, which may necessitate CPAP at home. In the meantime, I will put her on BiPAP. Repeat the blood gas after she has been on it for an hour or so and then determine whethe r there is a significant difference or not and then the possibility of a SNF unit will be reconsidere d. The family and patient prefer not as she did have a rough experience when she was at it last time . I will meet with the family tomorrow and make a determination in disposition. HR/MODL Voice ID: [id number] Report ID: [id number]
--- NOTE | 2019-04-18 23:41 | PN ---
Date of Progress Note: 04/18/2019 Subjective: Patient was admitted to the hospital with CHF exacerbation with acute kidney injury seco ndary to cardiorenal on chronic kidney disease, being on diuresis. Yesterday, we decreased the Bumex . Continue on spironolactone. Patient is still feeling shortness of breath. Physical Examination: Vital Signs: Blood pressure 134/98, pulse of 99, afebrile. Patient had good urine output of 3 voidi ng, as weight valdes there are no changes. Chest: Faint crackles, bilateral base. Heart: S1, S2. Regular rhythm. Systolic murmur. Abdomen: Soft, nontender. Extremities: Plus edema. Laboratory Data: WBC 5.6, H and H 9.6/31.7, platelets of 181. Sodium 141, potassium 4.9, bicarb 29, BUN 60, creatinine 1.7. GFR of 34, calcium 8.4. Current Medications: The patient on include: 1.Breathing treatment. 2.Plavix. 3.Atorvastatin. 4.Carvedilol. 5.Losartan 50. 6.Spironolactone 25 daily. 7.Citalopram. 8.Bumex 1 mg daily. 9.Pantoprazole. 10.Zofran. Assessment And Plan: 1.Acute kidney injury secondary to cardiorenal look to me, still on the over volume side. We will c ontinue diuresis. 2.Hypertension, controlled, optimal. Continue current treatment. 3.Congestive heart failure. We will continue diuresis. 4.Anemia of chronic kidney disease. I am going to send for anemia workup. 5.Urinary tract infection secondary to Klebsiella pneumoniae. I am going to start the patient on Le vaquin. We will follow up. ALCIDES/CHRISTY Voice ID: [id number] Report ID: [id number]
[2019-04-19 05:56] LABS: Albumin 2.6 g/dL (3.4-5.0); Phosphorus 3.5 mg/dL (2.5-4.9); Potassium 4.9 mmol/L (3.5-5.1)
[2019-04-19] MEDS: carvediloL 3.125 MG TAB PO SCH ×2 (06:43→17:03)
[2019-04-19] MEDS: INSULIN -REGULAR HUMAN 50 UNIT/0.5 ML ML SQ SCH ×4 (07:30→20:58)
[2019-04-19] MEDS: ESCITALOPRAM 20 MG TAB PO SCH (08:37)
[2019-04-19] MEDS: PANTOPRAZOLE 40MG TABLET PO SCH (08:38)
[2019-04-19] MEDS: ASPIRIN 81 MG CHEWABLE TABLET PO SCH (08:38)
[2019-04-19] MEDS: BUMETANIDE 1 MG TABLET PO SCH (08:38)
[2019-04-19] MEDS: CLOPIDOGREL 75 MG TABLET PO SCH (08:38)
[2019-04-19] MEDS: GLUCERNA SHAKE 237 ML CAN PO SCH ×2 (08:39→20:57)
[2019-04-19] MEDS: SPIRONOLACTONE 25 MG TABLET PO SCH (08:39)
[2019-04-19] MEDS: LOSARTAN POTASSIUM 50 MG TABLET PO SCH (08:39)
[2019-04-19] MEDS: TRELEGY ELLIPTA IH SCH (08:40)
[2019-04-19 15:26] LABS: Absolute Lymphocytes (CBC) 0.3 K/uL (0.7-4.9); Basophils % 0.8 % (0-1.3); Hematocrit 32.2 % (36.0-45.0); Lymphocytes % 4.7 % (15.3-44.8); RBC Red Blood Cell Count 3.38 M/uL (3.86-4.86)
[2019-04-19 15:40] LABS: Potassium 5.1 mmol/L (3.5-5.1)
[2019-04-19 15:50] LABS: Anisocytosis 1+; Blood Morphology Comment NOTED (NOT SEEN); Elliptocytes 1+; Hypochromasia 1+; Macrocytosis 1+; Platelet Estimate ADEQ; Poikilocytosis 1+
--- NOTE | 2019-04-19 19:34 | PN ---
Date of Progress Note: 04/19/2019 Patient continues to state she is short of breath. She does seem quite uncomfortable, however, O2 sa ts on 2 L are reasonable and normal. She did not keep the BiPAP on long enough last night to being f ull. Blood work as far as her gas was concerned, she said she was choking, so I think there is an an xiety element as well. Discussion as disposition was made with the daughter who has the power of att orney in regard to either SNF or home, and I think the decision will be made tomorrow if in fact ther e is no change in her clinical condition. I also think it would be of value if she has another rough evening to try the BiPAP again and see if it made any difference in her ABGs, and she does not have oxygen level below 88. This will not be of any value, so in any event, we should have a disposition plan by the morning. HR/MODL Voice ID: [id number] Report ID: [id number]
[2019-04-19] MEDS: ATORVASTATIN 20 MG TAB PO SCH (20:56)
[2019-04-19] MEDS: Levofloxacin500mg IV 500 MG/100 ML BAG IV SCH (20:56)
[2019-04-19 22:50] LABS: Arterial Blood Carboxyhemoglob 2.8 % (0-1.5); Blood Gas Oxyhemoglobin 92.7 % (94-97)
--- NOTE | 2019-04-20 00:58 | PN ---
Date of Progress Note: 04/19/2019 History: The patient was admitted with acute kidney injury secondary to cardiorenal, recovered grante coltonly. Patient still has shortness of breath secondary to COPD exacerbation. Physical Examination: Vital Signs: When I saw the patient, blood pressure of 131/61, pulse of 94, afebrile. Chest: Clear to auscultation. Heart: S1, S2. Systolic murmur. Abdomen: Soft, nontender. Bowel sounds appreciated. Extremities: Trace edema. Laboratory Data: WBC 7.3, H and H 9.9 and 32.2. Sodium 141, potassium 5.1, bicarb 28, BUN 63, creat inine 1.8, calcium 8.6. Current Medications: 1.Aspirin. 2.Levaquin. 3.Plavix. 4.Atorvastatin. 5.Carvedilol. 6.Losartan 50 daily. 7.Spironolactone. 8.Glucerna. 9.Breathing treatment. 10.Pantoprazole. Assessment And Plan: 1.Acute kidney injury secondary to cardiorenal, normal volume currently, keep current diuresis dose. 2.Hypertension, controlled, optimal. Continue current medication. We will hold on the spironolacto ne given that potassium is being elevated marginally. 3.Congestive heart failure. Normal volume. Continue to monitor. Continue current dose of the Bume x 1 mg daily. Hold spironolactone. 4.Marginal hyperkalemia. We will hold spironolactone. 5.Urinary tract infection secondary to Klebsiella pneumoniae. Continue Levaquin. 6.Chronic obstructive pulmonary disease exacerbation by Primary and Pulmonary. ALCIDES/CHRISTY Voice ID: [id number] Report ID: [id number]
[2019-04-20 04:59] VITALS: TEMP 97.7
[2019-04-20] MEDS: carvediloL 3.125 MG TAB PO SCH (06:01)
[2019-04-20 06:02] LABS: Albumin 2.4 g/dL (3.4-5.0); Phosphorus 3.6 mg/dL (2.5-4.9); Potassium 5.2 mmol/L (3.5-5.1)
[2019-04-20] MEDS: INSULIN -REGULAR HUMAN 50 UNIT/0.5 ML ML SQ SCH ×3 (07:30→16:30)
[2019-04-20] MEDS: ASPIRIN 81 MG CHEWABLE TABLET PO SCH (09:11)
[2019-04-20] MEDS: CLOPIDOGREL 75 MG TABLET PO SCH (09:11)
[2019-04-20] MEDS: ESCITALOPRAM 20 MG TAB PO SCH (09:11)
[2019-04-20] MEDS: PANTOPRAZOLE 40MG TABLET PO SCH (09:11)
[2019-04-20] MEDS: BUMETANIDE 1 MG TABLET PO SCH (09:11)
[2019-04-20] MEDS: LOSARTAN POTASSIUM 50 MG TABLET PO SCH (09:11)
[2019-04-20] MEDS: GLUCERNA SHAKE 237 ML CAN PO SCH (09:13)
[2019-04-20] MEDS: TRELEGY ELLIPTA IH SCH (09:17)
[2019-04-20 09:19] VITALS: BP 115/78
[2019-04-20] MEDS ORDERED: METHYLPREDNISOLONE 40 MG INJ IV SCH (09:30)
[2019-04-20] MEDS: IPRATROPIUM BROM 0.5MG/2.5ML NEB SCH ×2 (09:30→13:35)
--- NOTE | 2019-04-20 09:35 | P.PN ---
Subjective Date of Service: 04/20/19 Chief Complaint: COPD exacerbation Subjective: Improving (Patient is 73 years of age planing of shortness of breath the clearly worse at night) Review of Systems General: Weakness Respiratory: Shortness of Breath Physical Examination - Vital Signs Temperature: 97.7 F Blood Pressure: 115/78 Pulse: 85 Respirations: 16 Pulse Ox (%): 97 - Physical Exam General: Alert, Moderate distress Respiratory: Clear to auscultation bilaterally, Diminished Cardiovascular: Edema Assessment & Plan - Problems (Diagnosis) (1) COPD with exacerbation Onset Date: 04/25/17 Current Visit: No Status: Acute Plan: Patient admitted with COPD exacerbation still having problems this is volume overload her creatinine is elevated since admission command maximum bronchodilator therapy with steroids and bronchodilators blood gases are satisfactory she is not hypercapnic will not qualify for BiPAP the looks like she has problems worse at night Klebsiella isolated from the sputum change to cefuroxime prognosis poor
[2019-04-20] MEDS ORDERED: SOD POLYSTYREN SUL 15 GM/60 ML UCUP PO ONE (12:55)
--- NOTE | 2019-04-20 12:55 | P.PN ---
Subjective Date of Service: 04/20/19 Chief Complaint: COPD exacerbation Subjective: Improving subjective Pt with CHF and CKD III admitted for SOB today No overnight events Cr stable edema cont to improve K 5.2, off aldactone , will give kaeyxalate cont losartan for now Allergies iodine Allergy (Mild, Verified 06/03/18 18:17) Itching/Hives/Rash codeine Adverse Reaction (Intermediate, Verified 06/03/18 18:17) Hives/Rash Home Medications: Acetaminophen [Tylenol*] 2 tab PO Q4H PRN 04/13/19 Aspirin 1 tab PO DAILY 04/13/19 Atorvastatin Calcium [Lipitor*] 40 mg PO BEDTIME 04/13/19 Bumetanide [Bumex*] 1 mg PO DAILY 04/13/19 Carvedilol [Coreg] 1 tab PO BID 04/13/19 Clopidogrel Bisulfate [Plavix*] 1 tab PO DAILY 04/13/19 Escitalopram Oxalate 1 tab PO DAILY 04/13/19 Fluticasone/Umeclidin/Vilanter [Trelegy Ellipta 100-62.5-25] 1 puff IN DAILY 01/21 Pantoprazole [Protonix Tab*] 40 mg PO DAILY 04/13/19 Spironolactone [Aldactone*] 25 mg PO DAILY 04/13/19 - Past Medical/Surgical History Diabetic: Yes -: HTN -: Hyperlipidemia -: Diabetes mellitus type 2 [id number] -: COPD, oxygen-dependent 2L NC -: CAD with prior stent -: Systolic congestive heart failure, ejection fraction 30% -: Thoracic aortic aneurysm -: Chronic kidney disease -: Anemia of chronic disease -: GERD -: Former tobacco use -: atrial fibrillation -: Hiatal hernia repair -: Aortic aneurysm -: 2 cardiac stents (2010) Psychosocial/ Personal History: Patient is - Family History Father Medical History: Heart disease Mother Medical History: Diabetes Sister Medical History: Diabetes - Social History Smoking Status: Unknown if ever smoked Alcohol use: No CD- Drugs: No Caffeine use: No Review of Systems As in HPI Physical Examination Temp Pulse Resp BP Pulse Ox 97.7 F 89 20 110/74 97 04/14/19 12:00 04/14/19 12:00 04/14/19 12:00 04/14/19 12:00 04/14/19 12:00 General: Alert, Mild distress HEENT: Atraumatic, Normocephalic Neck: Supple, 2+ carotid pulse no bruit Respiratory: mild basal rales Cardiovascular: Regular rate/rhythm, No gallops, No rubs, No murmurs, Edema Gastrointestinal: Soft and benign, Non-distended, No tenderness Musculoskeletal: trace edema Integumentary: No rashes Conclusions/Impression: CKD III cr stable at baseline renal dose meds cont bumex avoid NSAID and contrast mild anemia S/P IV iron CHF Cont Bumex off aldactine due to hyerkalemia COPD exacerbation cont inhalers and steroids and Abx as per pulmonary HTN controlled Dm as per PCP Physical Examination - Vital Signs Temperature: 97.7 F Blood Pressure: 115/78 Pulse: 85 Respirations: 16 Pulse Ox (%): 97
[2019-04-20] MEDS ORDERED: ALBUTEROL 2.5 MG/3 ML NEB SOL NEB SCH (14:00)
[2019-04-20 14:30] VITALS: O2SAT 99
[2019-04-20] MEDS ORDERED: ACETAMINOPHEN 500 MG TAB PO PRN (14:53)
[2019-04-20] MEDS ORDERED: ARFORMOTEROL TARTRATE 15 MCG/2 ML VIAL.NEB NEB SCH (20:00)
[2019-04-20] MEDS ORDERED: CEFUROXIME 250 MG TAB PO SCH (21:00)
--- NOTE | 2019-04-20 22:35 | PN ---
Date of Progress Note: 04/20/2019 The patient is basically the same today, although she is more responsive. Her breathing is still dif ficulty, with this being labored. However, her O2 saturations remained at 95%. After much discussio n with the family in regard to options including hospice decided to try over the weekend at home with re-implementation of home health. This was done. She is basically kept on the same medication rony sandra and to be followed up by Dr. Webb and myself on as necessary basis. HR/MODL Voice ID: [id number] Report ID: [id number]
== END 2019-04-20 16:43 | disposition home or self-care (01) | DRG 291 ==
LOC: ER 12:10 → ERHOLD 14:10 → 2ND 17:12
PROVIDERS: ADMIT Family Medicine; ATTEND Family Medicine
DX: I13.0 Hypertensive heart and chronic kidney disease with heart failure and stage 1 through stage 4 chronic kidney disease, or unspecified chronic kidney disease (principal); I50.43 Acute on chronic combined systolic (congestive) and diastolic (congestive) heart failure; J44.1 Chronic obstructive pulmonary disease with (acute) exacerbation; N30.00 Acute cystitis without hematuria; J96.12 Chronic respiratory failure with hypercapnia; J96.11 Chronic respiratory failure with hypoxia; N17.9 Acute kidney failure, unspecified; N18.3 Chronic kidney disease, stage 3 (moderate); B96.1 Klebsiella pneumoniae [K. pneumoniae] as the cause of diseases classified elsewhere; E87.70 Fluid overload, unspecified; E87.5 Hyperkalemia; D63.1 Anemia in chronic kidney disease; Z99.81 Dependence on supplemental oxygen
CPT/HCPCS: 36415; 51702; 71045; 71046; 76770; 80048; 80069; 80076; 81003; 81015; 82550; 82570; 82607; 82728; 82746; 82805; 82947; 83540; 83735; 83880; 84100; 84145; 84156; 84443; 84466; 84484; 84550; 85025; 85610; 87040; 87077; 87086; 87088; 87186; 93005; 94640; 94660; 94760; 96374; 97110; 97116; 97161; 97530; 99285; J1940; J2920

== ENCOUNTER 2019-05-06 16:44 | Inpatient (IN) | payer OTHER ==
--- OUTSIDE RECORDS SUMMARY | 2019-05-06 17:02 | XMS REPORT ---
:1945 [facility] Organization [facility] Address [address] [place] [address] Care Team Providers Name Role Phone DIANA [...] Value Reference Range Comments MAGNESIUM (BEAKER) (test uzei=897) 1.9 mg/dL 1.6-2.6 BASIC METABOLIC [id number] 06:43:00 Test Item Value Reference Range Comments SODIUM (BEAKER) (test 140 meq/L 136-145 gnew=015) POTASSIUM (BEAKER) (test 4.2 meq/L 3.5-5.1 gshu=045) CHLORIDE (BEAKER) (test 106 meq/L 98-107 odoi=759) CO2 (BEAKER) (test 28 meq/L 22-29 yqwf=364) BLOOD UREA NITROGEN 33 mg/dL 7-21 (BEAKER) (test gzfn=937) CREATININE (BEAKER) (test 1.51 mg/dL 0.57-1.25 hnao=931) GLUCOSE RANDOM (BEAKER) 77 mg/dL 70-105 (test akpt=777) CALCIUM (BEAKER) (test 9.5 mg/dL 8.4-10.2 tjzk=010) EGFR (BEAKER) (test 41 mL/min/1.73 sq m ESTIMATED GFR IS NOT cbsl=2458) ACCURATE CREATININE CLEARANCE IN PREDICTING GLOMERULAR FILTRATION RATE. ESTIMATED GFR IS NOT APPLICABLE FOR DIALYSIS PATIENTS. B-TYPE NATRIURETIC FACTOR (BNP)2019-01-24 06:12:00 Test Item Value Reference Range Comments B-TYPE NATRIURETIC PEPTIDE (BEAKER) (test 1700 pg/mL 0-100 jkec=766) OXYGEN SATURATION, [id number] 06:04:00 Test Item Value Reference Range Comments O2 SATURATION (MEASURED) (BEAKER) (test ggiu=3365) 98.2 % CBC W/PLT COUNT & AUTO [id number] 05:55:00 Test Item Value Reference Range Comments WHITE BLOOD CELL COUNT (BEAKER) (test tved=989) 5.5 K/ L 3.5-10.5 RED BLOOD CELL COUNT (BEAKER) (test hilp=769) 2.53 M/ L 3.93-5.22 HEMOGLOBIN (BEAKER) (test wmhu=653) 8.3 GM/DL 11.2-15.7 HEMATOCRIT (BEAKER) (test yjpo=237) 27.4 % 34.1-44.9 MEAN CORPUSCULAR VOLUME (BEAKER) (test tbbs=965) 108.3 fL 79.4-94.8 MEAN CORPUSCULAR HEMOGLOBIN (BEAKER) (test 32.8 pg 25.6-32.2 gpim=562) MEAN CORPUSCULAR HEMOGLOBIN CONC (BEAKER) (test 30.3 GM/DL 32.2-35.5 czen=799) RED CELL DISTRIBUTION WIDTH (BEAKER) (test 13.4 % 11.7-14.4 qycz=939) PLATELET COUNT (BEAKER) (test zcyj=531) 243 K/CU MM 150-450 MEAN PLATELET VOLUME (BEAKER) (test wots=978) 9.9 fL 9.4-12.3 NUCLEATED RED BLOOD CELLS (BEAKER) (test 0 /100 WBC 0-0 jkjk=589) NEUTROPHILS RELATIVE PERCENT (BEAKER) (test 72 % jvrk=212) LYMPHOCYTES RELATIVE PERCENT (BEAKER) (test 16 % kngy=491) MONOCYTES RELATIVE PERCENT (BEAKER) (test 7 % znxl=457) EOSINOPHILS RELATIVE PERCENT (BEAKER) (test 4 % hocd=593) BASOPHILS RELATIVE PERCENT (BEAKER) (test 1 % kufc=229) NEUTROPHILS ABSOLUTE COUNT (BEAKER) (test 3.94 K/ L 1.56-6.13 oeqm=768) LYMPHOCYTES ABSOLUTE COUNT (BEAKER) (test 0.85 K/ L 1.18-3.74 wvgk=975) MONOCYTES ABSOLUTE COUNT (BEAKER) (test 0.36 K/ L 0.24-0.36 nwmj=708) EOSINOPHILS ABSOLUTE COUNT (BEAKER) (test 0.24 K/ L 0.04-0.36 jpgr=435) BASOPHILS ABSOLUTE COUNT (BEAKER) (test 0.05 K/ L 0.01-0.08 agko=872) IMMATURE GRANULOCYTES-RELATIVE PERCENT (BEAKER) 0 % 0-1 (test vnzr=6153) URINE PROTEIN ELECTROPHORESIS, [id number] 15:25:00 Test Item Value Reference Range Comments PROTEIN, URINE (BEAKER) (test 10 mg/dL 0-14 htje=4427) ALBUMIN URINE ELP (BEAKER) 51.2 % (test rwyz=7515) GAMMA GLOBULIN URINE (BEAKER) 48.8 % (test cybu=8429) UPEP, ID-438 (BEAKER) (test Urine protein study consistent 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 No monoclonal bands detected. [id number] (BEAKER) Анна Encarnacion MD (electronic (test hlwc=5116) signature) PROTEIN ELECTROPHORESIS, [id number] 13:35:00 Test Item Value Reference Range Comments ALBUMIN FRACTION (BEAKER) 3.5 g/dL 3.5-5.5 (test rrhw=707) ALPHA 1 FRACTION (BEAKER) 0.3 g/dL 0.2-0.4 (test tkft=458) ALPHA 2 FRACTION (BEAKER) 0.7 g/dL 0.5-0.9 (test vsda=738) BETA FRACTION (BEAKER) 0.9 g/dL 0.6-1.1 (test hhns=539) GAMMA GLOBULIN FRACTION 1.6 g/dL 0.7-1.7 (BEAKER) (test vpef=329) INTERPRETATION-119 (BEAKER) Normal electrophoretic pattern. (test ykuy=2099) [id number] Анна Encarnacion MD (electronic (BEAKER) (test csst=9156) signature) PROTEIN TOTAL SERUM, SPEP 7.0 gm/dL 6.0-8.3 (BEAKER) (test cumz=6377) [id number] 07:25:00 Test Item Value Reference Range Comments PHOSPHORUS (BEAKER) (test lpte=208) 3.5 mg/dL 2.3-4.7 [id number] 07:25:00 Test Item Value Reference Range Comments MAGNESIUM (BEAKER) (test vghd=146) 2.0 mg/dL 1.6-2.6 BASIC METABOLIC [id number] 07:25:00 Test Item Value Reference Range Comments SODIUM (BEAKER) (test 139 meq/L 136-145 oqco=590) POTASSIUM (BEAKER) (test 4.1 meq/L 3.5-5.1 kecc=273) CHLORIDE (BEAKER) (test 105 meq/L 98-107 dpeo=378) CO2 (BEAKER) (test 27 meq/L 22-29 qhqh=363) BLOOD UREA NITROGEN 36 mg/dL 7-21 (BEAKER) (test ylrj=841) CREATININE (BEAKER) (test 1.64 mg/dL 0.57-1.25 bjkm=449) GLUCOSE RANDOM (BEAKER) 86 mg/dL 70-105 (test nglx=019) CALCIUM (BEAKER) (test 9.3 mg/dL 8.4-10.2 olss=196) EGFR (BEAKER) (test 37 mL/min/1.73 sq m ESTIMATED GFR IS NOT ivlv=1690) ACCURATE CREATININE CLEARANCE IN PREDICTING GLOMERULAR FILTRATION RATE. ESTIMATED GFR IS NOT APPLICABLE FOR DIALYSIS PATIENTS. B-TYPE NATRIURETIC FACTOR (BNP)2019-01-23 06:22:00 Test Item Value Reference Range Comments B-TYPE NATRIURETIC PEPTIDE (BEAKER) (test 841 pg/mL 0-100 aind=728) CALCIUM, [id number] 06:06:00 Test Item Value Reference Range Comments CALCIUM IONIZED (BEAKER) (test fvun=717) 1.24 mmol/L 1.12-1.27 PH, BLOOD (BEAKER) (test evfu=3132) 7.39 OXYGEN SATURATION, [id number] 06:05:00 Test Item Value Reference Range Comments O2 SATURATION (MEASURED) (BEAKER) (test eikt=9382) 93.6 % CBC W/PLT COUNT & AUTO [id number] 05:54:00 Test Item Value Reference Range Comments WHITE BLOOD CELL COUNT (BEAKER) (test pqji=022) 5.4 K/ L 3.5-10.5 RED BLOOD CELL COUNT (BEAKER) (test poqv=970) 2.56 M/ L 3.93-5.22 HEMOGLOBIN (BEAKER) (test ymhi=821) 8.5 GM/DL 11.2-15.7 HEMATOCRIT (BEAKER) (test blpo=242) 27.8 % 34.1-44.9 MEAN CORPUSCULAR VOLUME (BEAKER) (test kyis=445) 108.6 fL 79.4-94.8 MEAN CORPUSCULAR HEMOGLOBIN (BEAKER) (test 33.2 pg 25.6-32.2 kabu=503) MEAN CORPUSCULAR HEMOGLOBIN CONC (BEAKER) (test 30.6 GM/DL 32.2-35.5 doui=965) RED CELL DISTRIBUTION WIDTH (BEAKER) (test 13.2 % 11.7-14.4 vmrx=286) PLATELET COUNT (BEAKER) (test wasq=648) 251 K/CU MM 150-450 MEAN PLATELET VOLUME (BEAKER) (test iljz=127) 9.4 fL 9.4-12.3 NUCLEATED RED BLOOD CELLS (BEAKER) (test 0 /100 WBC 0-0 hgwj=289) NEUTROPHILS RELATIVE PERCENT (BEAKER) (test 70 % tdke=858) LYMPHOCYTES RELATIVE PERCENT (BEAKER) (test 16 % sfia=224) MONOCYTES RELATIVE PERCENT (BEAKER) (test 7 % wzxr=500) EOSINOPHILS RELATIVE PERCENT (BEAKER) (test 6 % nosd=262) BASOPHILS RELATIVE PERCENT (BEAKER) (test 1 % yjvi=819) NEUTROPHILS ABSOLUTE COUNT (BEAKER) (test 3.75 K/ L 1.56-6.13 cffk=058) LYMPHOCYTES ABSOLUTE COUNT (BEAKER) (test 0.88 K/ L 1.18-3.74 hrvb=779) MONOCYTES ABSOLUTE COUNT (BEAKER) (test 0.35 K/ L 0.24-0.36 zwfi=558) EOSINOPHILS ABSOLUTE COUNT (BEAKER) (test 0.30 K/ L 0.04-0.36 bqon=047) BASOPHILS ABSOLUTE COUNT (BEAKER) (test 0.05 K/ L 0.01-0.08 pvtm=641) IMMATURE GRANULOCYTES-RELATIVE PERCENT (BEAKER) 0 % 0-1 (test wbdv=0946) B-TYPE NATRIURETIC FACTOR (BNP)2019-01-22 06:13:00 Test Item Value Reference Range Comments B-TYPE NATRIURETIC PEPTIDE (BEAKER) (test 811 pg/mL 0-100 hwpb=295) [id number] 05:57:00 Test Item Value Reference Range Comments MAGNESIUM (BEAKER) (test ebil=234) 2.1 mg/dL 1.6-2.6 BASIC METABOLIC [id number] 05:57:00 Test Item Value Reference Range Comments SODIUM (BEAKER) (test 138 meq/L 136-145 oclh=172) POTASSIUM (BEAKER) (test 4.2 meq/L 3.5-5.1 rkpn=723) CHLORIDE (BEAKER) (test 104 meq/L 98-107 mibc=216) CO2 (BEAKER) (test 26 meq/L 22-29 djvs=693) BLOOD UREA NITROGEN 36 mg/dL 7-21 (BEAKER) (test mdyo=036) CREATININE (BEAKER) (test 1.92 mg/dL 0.57-1.25 sgic=018) GLUCOSE RANDOM (BEAKER) 82 mg/dL 70-105 (test apmj=821) CALCIUM (BEAKER) (test 9.6 mg/dL 8.4-10.2 elfo=989) EGFR (BEAKER) (test 31 mL/min/1.73 sq m ESTIMATED GFR IS NOT kyrl=1860) ACCURATE CREATININE CLEARANCE IN PREDICTING GLOMERULAR FILTRATION RATE. ESTIMATED GFR IS NOT APPLICABLE FOR DIALYSIS PATIENTS. OXYGEN SATURATION, [id number] 05:47:00 Test Item Value Reference Range Comments O2 SATURATION (MEASURED) (BEAKER) (test scoz=5533) 34.2 % CBC W/PLT COUNT & AUTO [id number] 05:31:00 Test Item Value Reference Range Comments WHITE BLOOD CELL COUNT (BEAKER) (test zbsc=259) 5.8 K/ L 3.5-10.5 RED BLOOD CELL COUNT (BEAKER) (test jilh=505) 2.63 M/ L 3.93-5.22 HEMOGLOBIN (BEAKER) (test iqnt=221) 8.9 GM/DL 11.2-15.7 HEMATOCRIT (BEAKER) (test qzwv=586) 28.3 % 34.1-44.9 MEAN CORPUSCULAR VOLUME (BEAKER) (test mnzf=801) 107.6 fL 79.4-94.8 MEAN CORPUSCULAR HEMOGLOBIN (BEAKER) (test 33.8 pg 25.6-32.2 exui=501) MEAN CORPUSCULAR HEMOGLOBIN CONC (BEAKER) (test 31.4 GM/DL 32.2-35.5 ylrk=581) RED CELL DISTRIBUTION WIDTH (BEAKER) (test 13.2 % 11.7-14.4 cqrt=091) PLATELET COUNT (BEAKER) (test xccg=366) 263 K/CU MM 150-450 MEAN PLATELET VOLUME (BEAKER) (test ygda=604) 9.3 fL 9.4-12.3 NUCLEATED RED BLOOD CELLS (BEAKER) (test 0 /100 WBC 0-0 exzz=689) NEUTROPHILS RELATIVE PERCENT (BEAKER) (test 67 % orsg=158) LYMPHOCYTES RELATIVE PERCENT (BEAKER) (test 19 % cahp=025) MONOCYTES RELATIVE PERCENT (BEAKER) (test 6 % fcqc=453) EOSINOPHILS RELATIVE PERCENT (BEAKER) (test 6 % zzsc=113) BASOPHILS RELATIVE PERCENT (BEAKER) (test 1 % pyll=249) NEUTROPHILS ABSOLUTE COUNT (BEAKER) (test 3.93 K/ L 1.56-6.13 wery=417) LYMPHOCYTES ABSOLUTE COUNT (BEAKER) (test 1.12 K/ L 1.18-3.74 yxoe=827) MONOCYTES ABSOLUTE COUNT (BEAKER) (test 0.36 K/ L 0.24-0.36 ujam=578) EOSINOPHILS ABSOLUTE COUNT (BEAKER) (test 0.36 K/ L 0.04-0.36 ouzp=837) BASOPHILS ABSOLUTE COUNT (BEAKER) (test 0.06 K/ L 0.01-0.08 rsea=841) IMMATURE GRANULOCYTES-RELATIVE PERCENT (BEAKER) 0 % 0-1 (test vetb=2108) CALCIUM, [id number] 06:00:00 Test Item Value Reference Range Comments CALCIUM IONIZED (BEAKER) (test xuog=516) 1.19 mmol/L 1.12-1.27 PH, BLOOD (BEAKER) (test tdmc=5205) 7.35 OXYGEN SATURATION, [id number] 05:59:00 Test Item Value Reference Range Comments O2 SATURATION (MEASURED) (BEAKER) (test igqq=1060) 96.0 % B-TYPE NATRIURETIC FACTOR (BNP)2019-01-21 05:31:00 Test Item Value Reference Range Comments B-TYPE NATRIURETIC PEPTIDE (BEAKER) (test 568 pg/mL 0-100 oavm=972) BASIC METABOLIC [id number] 05:26:00 Test Item Value Reference Range Comments SODIUM (BEAKER) (test 136 meq/L 136-145 mzut=327) POTASSIUM (BEAKER) (test 4.0 meq/L 3.5-5.1 dtxm=158) CHLORIDE (BEAKER) (test 102 meq/L 98-107 rjzt=214) CO2 (BEAKER) (test 25 meq/L 22-29 ddav=688) BLOOD UREA NITROGEN 40 mg/dL 7-21 (BEAKER) (test jhjn=464) CREATININE (BEAKER) (test 1.89 mg/dL 0.57-1.25 dvfl=184) GLUCOSE RANDOM (BEAKER) 83 mg/dL 70-105 (test exlk=527) CALCIUM (BEAKER) (test 9.2 mg/dL 8.4-10.2 tfwy=740) EGFR (BEAKER) (test 32 mL/min/1.73 sq m ESTIMATED GFR IS NOT unyq=4438) ACCURATE CREATININE CLEARANCE IN PREDICTING GLOMERULAR FILTRATION RATE. ESTIMATED GFR IS NOT APPLICABLE FOR DIALYSIS PATIENTS. CBC W/PLT COUNT & AUTO [id number] 05:13:00 Test Item Value Reference Range Comments WHITE BLOOD CELL COUNT (BEAKER) (test bcwf=208) 5.8 K/ L 3.5-10.5 RED BLOOD CELL COUNT (BEAKER) (test vcat=772) 2.59 M/ L 3.93-5.22 HEMOGLOBIN (BEAKER) (test iixf=916) 8.4 GM/DL 11.2-15.7 HEMATOCRIT (BEAKER) (test borq=562) 27.6 % 34.1-44.9 MEAN CORPUSCULAR VOLUME (BEAKER) (test yynw=374) 106.6 fL 79.4-94.8 MEAN CORPUSCULAR HEMOGLOBIN (BEAKER) (test 32.4 pg 25.6-32.2 nrbk=205) MEAN CORPUSCULAR HEMOGLOBIN CONC (BEAKER) (test 30.4 GM/DL 32.2-35.5 fdhr=618) RED CELL DISTRIBUTION WIDTH (BEAKER) (test 12.9 % 11.7-14.4 nfpi=016) PLATELET COUNT (BEAKER) (test dviz=128) 254 K/CU MM 150-450 MEAN PLATELET VOLUME (BEAKER) (test vkdo=882) 9.7 fL 9.4-12.3 NUCLEATED RED BLOOD CELLS (BEAKER) (test 0 /100 WBC 0-0 hbxn=725) NEUTROPHILS RELATIVE PERCENT (BEAKER) (test 72 % eefi=804) LYMPHOCYTES RELATIVE PERCENT (BEAKER) (test 16 % tjkf=312) MONOCYTES RELATIVE PERCENT (BEAKER) (test 6 % gvzw=670) EOSINOPHILS RELATIVE PERCENT (BEAKER) (test 5 % pqau=043) BASOPHILS RELATIVE PERCENT (BEAKER) (test 1 % alkt=016) NEUTROPHILS ABSOLUTE COUNT (BEAKER) (test 4.16 K/ L 1.56-6.13 bewd=284) LYMPHOCYTES ABSOLUTE COUNT (BEAKER) (test 0.91 K/ L 1.18-3.74 uiih=785) MONOCYTES ABSOLUTE COUNT (BEAKER) (test 0.36 K/ L 0.24-0.36 oisb=923) EOSINOPHILS ABSOLUTE COUNT (BEAKER) (test 0.31 K/ L 0.04-0.36 xviv=905) BASOPHILS ABSOLUTE COUNT (BEAKER) (test 0.04 K/ L 0.01-0.08 hqtp=969) IMMATURE GRANULOCYTES-RELATIVE PERCENT (BEAKER) 0 % 0-1 (test soom=4024) [id number] 05:49:00 Test Item Value Reference Range Comments PHOSPHORUS (BEAKER) (test oxcq=049) 3.9 mg/dL 2.3-4.7 [id number] 05:49:00 Test Item Value Reference Range Comments MAGNESIUM (BEAKER) (test bkzy=627) 2.0 mg/dL 1.6-2.6 BASIC METABOLIC [id number] 05:49:00 Test Item Value Reference Range Comments SODIUM (BEAKER) (test 137 meq/L 136-145 tffq=230) POTASSIUM (BEAKER) (test 4.2 meq/L 3.5-5.1 rdbx=151) CHLORIDE (BEAKER) (test 102 meq/L 98-107 rxpt=750) CO2 (BEAKER) (test 27 meq/L 22-29 fppf=032) BLOOD UREA NITROGEN 45 mg/dL 7-21 (BEAKER) (test kohj=515) CREATININE (BEAKER) (test 1.94 mg/dL 0.57-1.25 sjkw=762) GLUCOSE RANDOM (BEAKER) 105 mg/dL 70-105 (test rlxg=405) CALCIUM (BEAKER) (test 9.2 mg/dL 8.4-10.2 gvti=395) EGFR (BEAKER) (test 31 mL/min/1.73 sq m ESTIMATED GFR IS NOT emtn=7170) ACCURATE CREATININE CLEARANCE IN PREDICTING GLOMERULAR FILTRATION RATE. ESTIMATED GFR IS NOT APPLICABLE FOR DIALYSIS PATIENTS. CALCIUM, [id number] 05:41:00 Test Item Value Reference Range Comments CALCIUM IONIZED (BEAKER) (test lsox=589) 1.22 mmol/L 1.12-1.27 PH, BLOOD (BEAKER) (test lpvt=3149) 7.36 B-TYPE NATRIURETIC FACTOR (BNP)2019-01-20 05:33:00 Test Item Value Reference Range Comments B-TYPE NATRIURETIC PEPTIDE (BEAKER) (test 411 pg/mL 0-100 hldi=490) CBC W/PLT COUNT & AUTO [id number] 05:15:00 Test Item Value Reference Range Comments WHITE BLOOD CELL COUNT (BEAKER) (test yksi=416) 5.5 K/ L 3.5-10.5 RED BLOOD CELL COUNT (BEAKER) (test mwez=780) 2.46 M/ L 3.93-5.22 HEMOGLOBIN (BEAKER) (test qihu=427) 8.1 GM/DL 11.2-15.7 HEMATOCRIT (BEAKER) (test zvbk=331) 26.4 % 34.1-44.9 MEAN CORPUSCULAR VOLUME (BEAKER) (test tgsk=836) 107.3 fL 79.4-94.8 MEAN CORPUSCULAR HEMOGLOBIN (BEAKER) (test 32.9 pg 25.6-32.2 zjzo=973) MEAN CORPUSCULAR HEMOGLOBIN CONC (BEAKER) (test 30.7 GM/DL 32.2-35.5 bjvj=272) RED CELL DISTRIBUTION WIDTH (BEAKER) (test 12.8 % 11.7-14.4 hash=584) PLATELET COUNT (BEAKER) (test gniw=596) 236 K/CU MM 150-450 MEAN PLATELET VOLUME (BEAKER) (test mznl=031) 9.9 fL 9.4-12.3 NUCLEATED RED BLOOD CELLS (BEAKER) (test 0 /100 WBC 0-0 zbni=282) NEUTROPHILS RELATIVE PERCENT (BEAKER) (test 71 % hxlx=659) LYMPHOCYTES RELATIVE PERCENT (BEAKER) (test 17 % dxtl=019) MONOCYTES RELATIVE PERCENT (BEAKER) (test 7 % ouam=287) EOSINOPHILS RELATIVE PERCENT (BEAKER) (test 4 % htux=928) BASOPHILS RELATIVE PERCENT (BEAKER) (test 1 % jeai=391) NEUTROPHILS ABSOLUTE COUNT (BEAKER) (test 3.87 K/ L 1.56-6.13 gssm=339) LYMPHOCYTES ABSOLUTE COUNT (BEAKER) (test 0.92 K/ L 1.18-3.74 decw=181) MONOCYTES ABSOLUTE COUNT (BEAKER) (test 0.38 K/ L 0.24-0.36 dpdv=898) EOSINOPHILS ABSOLUTE COUNT (BEAKER) (test 0.24 K/ L 0.04-0.36 moke=210) BASOPHILS ABSOLUTE COUNT (BEAKER) (test 0.05 K/ L 0.01-0.08 vrkm=558) IMMATURE GRANULOCYTES-RELATIVE PERCENT (BEAKER) 0 % 0-1 (test mauf=8501) OXYGEN SATURATION, [id number] 05:13:00 Test Item Value Reference Range Comments O2 SATURATION (MEASURED) (BEAKER) (test eeul=1680) 85.5 % CBC W/PLT COUNT & AUTO [id number] 07:13:00 Test Item Value Reference Range Comments WHITE BLOOD CELL COUNT (BEAKER) (test qswr=639) 5.4 K/ L 3.5-10.5 RED BLOOD CELL COUNT (BEAKER) (test remz=823) 2.55 M/ L 3.93-5.22 HEMOGLOBIN (BEAKER) (test crju=825) 8.4 GM/DL 11.2-15.7 HEMATOCRIT (BEAKER) (test jupp=986) 26.9 % 34.1-44.9 MEAN CORPUSCULAR VOLUME (BEAKER) (test rpno=566) 105.5 fL 79.4-94.8 MEAN CORPUSCULAR HEMOGLOBIN (BEAKER) (test 32.9 pg 25.6-32.2 gvnn=834) MEAN CORPUSCULAR HEMOGLOBIN CONC (BEAKER) (test 31.2 GM/DL 32.2-35.5 sksi=220) RED CELL DISTRIBUTION WIDTH (BEAKER) (test 12.9 % 11.7-14.4 ikzz=143) PLATELET COUNT (BEAKER) (test xlvs=518) 251 K/CU MM 150-450 MEAN PLATELET VOLUME (BEAKER) (test vlrb=952) 10.3 fL 9.4-12.3 NUCLEATED RED BLOOD CELLS (BEAKER) (test 0 /100 WBC 0-0 ttsw=068) NEUTROPHILS RELATIVE PERCENT (BEAKER) (test 66 % zbau=609) LYMPHOCYTES RELATIVE PERCENT (BEAKER) (test 21 % tsux=480) MONOCYTES RELATIVE PERCENT (BEAKER) (test 7 % bxmq=048) EOSINOPHILS RELATIVE PERCENT (BEAKER) (test 4 % ikjb=749) BASOPHILS RELATIVE PERCENT (BEAKER) (test 1 % sdpx=738) NEUTROPHILS ABSOLUTE COUNT (BEAKER) (test 3.55 K/ L 1.56-6.13 spgw=263) LYMPHOCYTES ABSOLUTE COUNT (BEAKER) (test 1.14 K/ L 1.18-3.74 ucpe=618) MONOCYTES ABSOLUTE COUNT (BEAKER) (test 0.39 K/ L 0.24-0.36 vcqa=929) EOSINOPHILS ABSOLUTE COUNT (BEAKER) (test 0.20 K/ L 0.04-0.36 qaqd=359) BASOPHILS ABSOLUTE COUNT (BEAKER) (test 0.06 K/ L 0.01-0.08 fcma=390) IMMATURE GRANULOCYTES-RELATIVE PERCENT (BEAKER) 0 % 0-1 (test dgct=5296) [id number] 06:22:00 Test Item Value Reference Range Comments PHOSPHORUS (BEAKER) (test egwj=066) 3.8 mg/dL 2.3-4.7 [id number] 06:22:00 Test Item Value Reference Range Comments MAGNESIUM (BEAKER) (test bjor=811) 2.2 mg/dL 1.6-2.6 COMPREHENSIVE METABOLIC [id number] 06:22:00 Test Item Value Reference Range Comments TOTAL PROTEIN (BEAKER) 7.3 gm/dL 6.0-8.3 (test tvwd=783) ALBUMIN (BEAKER) (test 3.8 g/dL 3.5-5.0 khyt=1005) ALKALINE PHOSPHATASE 43 U/L 40-150 (BEAKER) (test hdhr=932) BILIRUBIN TOTAL (BEAKER) 0.3 mg/dL 0.2-1.2 (test zjnx=189) SODIUM (BEAKER) (test 135 meq/L 136-145 mwpf=178) POTASSIUM (BEAKER) (test 4.0 meq/L 3.5-5.1 etpa=566) CHLORIDE (BEAKER) (test 99 meq/L 98-107 oorw=733) CO2 (BEAKER) (test 31 meq/L 22-29 xsvc=812) BLOOD UREA NITROGEN 40 mg/dL 7-21 (BEAKER) (test mebe=467) CREATININE (BEAKER) (test 1.95 mg/dL 0.57-1.25 mmvk=452) GLUCOSE RANDOM (BEAKER) 99 mg/dL 70-105 (test zevc=397) CALCIUM (BEAKER) (test 9.9 mg/dL 8.4-10.2 mxgu=551) AST (SGOT) (BEAKER) (test 15 U/L 5-34 bhjd=890) ALT (SGPT) (BEAKER) (test 10 U/L 6-55 eins=149) EGFR (BEAKER) (test 31 mL/min/1.73 sq m ESTIMATED GFR IS NOT cfga=9396) ACCURATE CREATININE CLEARANCE IN PREDICTING GLOMERULAR FILTRATION RATE. ESTIMATED GFR IS NOT APPLICABLE FOR DIALYSIS PATIENTS. VITAMIN D, [id number] 06:03:00 Test Item Value Reference Range Comments VITAMIN D 25-OH (BEAKER) (test jimq=2901) 42.3 ng/mL 6.6-49.9 Effective 01/12/2017: Reference Range ChangeNew: 6.6-49.9 ng/mL Previous: 13.0 -47.8 ng/mLRecommended Vitamin D Target Range: 30.0-40.0 ng/mLB-TYPE NATRIURETIC FACTOR (BNP)2019-01-19 05:18:00 Test Item Value Reference Range Comments B-TYPE NATRIURETIC PEPTIDE (BEAKER) (test 490 pg/mL 0-100 nmap=627) PTH, [id number] 05:16:00 Test Item Value Reference Range Comments PARATHYROID HORMONE INTACT (BEAKER) (test 151.4 pg/mL 8.5-72.5 jbko=237) CALCIUM, [id number] 04:20:00 Test Item Value Reference Range Comments CALCIUM IONIZED (BEAKER) (test csva=131) 1.30 mmol/L 1.12-1.27 PH, BLOOD (BEAKER) (test ocri=2602) 7.37 OXYGEN SATURATION, [id number] 04:00:00 Test Item Value Reference Range Comments O2 SATURATION (MEASURED) (BEAKER) (test poyf=7857) 86.1 % CREATININE, RANDOM [id number] 12:21:00 Test Item Value Reference Range Comments CREATININE URINE (BEAKER) (test cyfr=993) 110.5 mg/dL Reference Range: No NormalsPROTEIN, RANDOM [id number] 12:21:00 Test Item Value Reference Range Comments PROTEIN, URINE (BEAKER) (test ysth=8760) 14 mg/dL 0-14 SODIUM, RANDOM [id number] 12:21:00 Test Item Value Reference Range Comments SODIUM URINE (BEAKER) (test ipnf=031) 34 meq/L Reference Range: No NormalsCALCIUM, [id number] 10:17:00 Test Item Value Reference Range Comments CALCIUM IONIZED (BEAKER) (test ozau=988) 1.29 mmol/L 1.12-1.27 PH, BLOOD (BEAKER) (test lzid=7007) 7.31 OXYGEN SATURATION, [id number] 10:16:00 Test Item Value Reference Range Comments O2 SATURATION (MEASURED) (BEAKER) (test mzfw=1870) 69.6 % POCT-GLUCOSE [id number] 08:28:00 Test Item Value Reference Range Comments POC-GLUCOSE METER (BEAKER) 90 mg/dL 70-110 TESTED AT [facility] [address] [facility] [address] (test bqmo=3197) [facility] [address] BASIC METABOLIC [id number] 07:28:00 Test Item Value Reference Range Comments SODIUM (BEAKER) (test 134 meq/L 136-145 kgvw=621) POTASSIUM (BEAKER) (test 4.2 meq/L 3.5-5.1 dhyo=496) CHLORIDE (BEAKER) (test 100 meq/L 98-107 pmhi=819) CO2 (BEAKER) (test 26 meq/L 22-29 fabn=690) BLOOD UREA NITROGEN 43 mg/dL 7-21 (BEAKER) (test ojuj=561) CREATININE (BEAKER) (test 1.95 mg/dL 0.57-1.25 depj=855) GLUCOSE RANDOM (BEAKER) 130 mg/dL 70-105 (test rbfb=466) CALCIUM (BEAKER) (test 9.8 mg/dL 8.4-10.2 bdax=733) EGFR (BEAKER) (test 31 mL/min/1.73 sq m ESTIMATED GFR IS NOT nqpt=1158) ACCURATE CREATININE CLEARANCE IN PREDICTING GLOMERULAR FILTRATION RATE. ESTIMATED GFR IS NOT APPLICABLE FOR DIALYSIS PATIENTS. URIC [id number] 07:10:00 Test Item Value Reference Range Comments URIC ACID (BEAKER) (test alou=356) 6.4 mg/dL 2.6-7.2 [id number] 07:10:00 Test Item Value Reference Range Comments MAGNESIUM (BEAKER) (test igdl=315) 2.2 mg/dL 1.6-2.6 [id number] 07:10:00 Test Item Value Reference Range Comments PHOSPHORUS (BEAKER) (test cotv=324) 3.7 mg/dL 2.3-4.7 CREATINE KINASE (CK)2019-01-18 07:10:00 Test Item Value Reference Range Comments CREATINE KINASE TOTAL (BEAKER) (test fgtv=520) 46 U/L 29-200 B-TYPE NATRIURETIC FACTOR (BNP)2019-01-18 06:18:00 Test Item Value Reference Range Comments B-TYPE NATRIURETIC PEPTIDE (BEAKER) (test 723 pg/mL 0-100 twad=306) CBC W/PLT COUNT & AUTO [id number] 05:54:00 Test Item Value Reference Range Comments WHITE BLOOD CELL COUNT (BEAKER) (test kxfg=091) 5.6 K/ L 3.5-10.5 RED BLOOD CELL COUNT (BEAKER) (test qdbx=548) 2.59 M/ L 3.93-5.22 HEMOGLOBIN (BEAKER) (test xojs=015) 8.5 GM/DL 11.2-15.7 HEMATOCRIT (BEAKER) (test gvgn=041) 27.4 % 34.1-44.9 MEAN CORPUSCULAR VOLUME (BEAKER) (test pfhi=301) 105.8 fL 79.4-94.8 MEAN CORPUSCULAR HEMOGLOBIN (BEAKER) (test 32.8 pg 25.6-32.2 oodp=295) MEAN CORPUSCULAR HEMOGLOBIN CONC (BEAKER) (test 31.0 GM/DL 32.2-35.5 gzox=751) RED CELL DISTRIBUTION WIDTH (BEAKER) (test 12.7 % 11.7-14.4 mzmu=465) PLATELET COUNT (BEAKER) (test gscz=827) 240 K/CU MM 150-450 MEAN PLATELET VOLUME (BEAKER) (test wtdl=940) 10.2 fL 9.4-12.3 NUCLEATED RED BLOOD CELLS (BEAKER) (test 0 /100 WBC 0-0 tyib=342) NEUTROPHILS RELATIVE PERCENT (BEAKER) (test 71 % rlwy=071) LYMPHOCYTES RELATIVE PERCENT (BEAKER) (test 17 % iakj=761) MONOCYTES RELATIVE PERCENT (BEAKER) (test 8 % juob=710) EOSINOPHILS RELATIVE PERCENT (BEAKER) (test 2 % nxvq=646) BASOPHILS RELATIVE PERCENT (BEAKER) (test 1 % qnuq=964) NEUTROPHILS ABSOLUTE COUNT (BEAKER) (test 4.02 K/ L 1.56-6.13 dxtl=671) LYMPHOCYTES ABSOLUTE COUNT (BEAKER) (test 0.97 K/ L 1.18-3.74 gufo=249) MONOCYTES ABSOLUTE COUNT (BEAKER) (test 0.46 K/ L 0.24-0.36 kuib=606) EOSINOPHILS ABSOLUTE COUNT (BEAKER) (test 0.12 K/ L 0.04-0.36 tjmo=101) BASOPHILS ABSOLUTE COUNT (BEAKER) (test 0.04 K/ L 0.01-0.08 tysc=150) IMMATURE GRANULOCYTES-RELATIVE PERCENT (BEAKER) 0 % 0-1 (test dylh=5433) U/S, RENAL, [id number] 05:23:00[facility]- Dr. Levy/ Marcus Reddy. [facility] is in network. ppo no referral needed 07/2018cpt 90364 no auth required Reason for exam:->AKIShould this [...] 05:23:17 RAD , CHEST, 1 VIEW, NON [id number] 04:49:00[facility]- Dr. Levy/ Marcus Reddy. chano is in network. ppo no referral needed 07/2018cpt 71308 no auth required Reason for exam:->CHFShould this [...] Maryana Spann Verified Date/Time: 01/18/2019 04:49:09 HEMOGLOBIN [id number] 22:46 :00 Test Item Value Reference Range Comments HEMOGLOBIN A1C (BEAKER) (test zgxd=157) 5.1 % 4.3-6.1 POCT-GLUCOSE [id number] 21:47:00 Test Item Value Reference Range Comments POC-GLUCOSE METER (BEAKER) 163 mg/dL 70-110 TESTED AT [facility] [address] (test xyoy=7026) [facility] [address] CBC W/PLT COUNT & AUTO [id number] 20:11:00 Test Item Value Reference Range Comments WHITE BLOOD CELL COUNT (BEAKER) (test pzsk=924) 7.8 K/ L 3.5-10.5 RED BLOOD CELL COUNT (BEAKER) (test hrqd=964) 3.01 M/ L 3.93-5.22 HEMOGLOBIN (BEAKER) (test qibw=251) 10.0 GM/DL 11.2-15.7 HEMATOCRIT (BEAKER) (test oriw=662) 31.4 % 34.1-44.9 MEAN CORPUSCULAR VOLUME (BEAKER) (test rsni=829) 104.3 fL 79.4-94.8 MEAN CORPUSCULAR HEMOGLOBIN (BEAKER) (test 33.2 pg 25.6-32.2 wbyb=997) MEAN CORPUSCULAR HEMOGLOBIN CONC (BEAKER) (test 31.8 GM/DL 32.2-35.5 eyfd=421) RED CELL DISTRIBUTION WIDTH (BEAKER) (test 12.9 % 11.7-14.4 wwps=978) PLATELET COUNT (BEAKER) (test sgsf=520) 298 K/CU MM 150-450 MEAN PLATELET VOLUME (BEAKER) (test ayjf=970) 9.9 fL 9.4-12.3 NUCLEATED RED BLOOD CELLS (BEAKER) (test 0 /100 WBC 0-0 pwyk=574) NEUTROPHILS RELATIVE PERCENT (BEAKER) (test 82 % puev=537) LYMPHOCYTES RELATIVE PERCENT (BEAKER) (test 11 % wefj=217) MONOCYTES RELATIVE PERCENT (BEAKER) (test 5 % bncm=902) EOSINOPHILS RELATIVE PERCENT (BEAKER) (test 1 % mrto=914) BASOPHILS RELATIVE PERCENT (BEAKER) (test 1 % lbet=699) NEUTROPHILS ABSOLUTE COUNT (BEAKER) (test 6.35 K/ L 1.56-6.13 yvqu=772) LYMPHOCYTES ABSOLUTE COUNT (BEAKER) (test 0.87 K/ L 1.18-3.74 utdu=408) MONOCYTES ABSOLUTE COUNT (BEAKER) (test 0.39 K/ L 0.24-0.36 jjym=699) EOSINOPHILS ABSOLUTE COUNT (BEAKER) (test 0.08 K/ L 0.04-0.36 emrw=886) BASOPHILS ABSOLUTE COUNT (BEAKER) (test 0.04 K/ L 0.01-0.08 vjyq=736) IMMATURE GRANULOCYTES-RELATIVE PERCENT (BEAKER) 0 % 0-1 (test hgfi=7739) POCT-GLUCOSE [id number] 18:09:00 Test Item Value Reference Range Comments POC-GLUCOSE METER (BEAKER) 140 mg/dL 70-110 TESTED AT [address] (test nnty=8776) [facility] [address] OXYGEN SATURATION, [id number] 15:05:00 Test Item Value Reference Range Comments O2 SATURATION (MEASURED) (BEAKER) (test pdzz=2611) 43.7 % [id number] 13:15:00 Test Item Value Reference Range Comments FERRITIN (BEAKER) (test rppt=557) 257 ng/mL 5-275 VITAMIN B12 AND [id number] 13:15:00 Test Item Value Reference Range Comments VITAMIN B12 (BEAKER) (test dwka=897) 1120 pg/mL 213-816 FOLATE (BEAKER) (test njgj=435) 18.7 ng/mL >=7.0 COMPREHENSIVE METABOLIC [id number] 12:50:00 Test Item Value Reference Range Comments TOTAL PROTEIN (BEAKER) 8.3 gm/dL 6.0-8.3 (test zlae=321) ALBUMIN (BEAKER) (test 4.3 g/dL 3.5-5.0 ysnv=2515) ALKALINE PHOSPHATASE 52 U/L 40-150 (BEAKER) (test yvuv=857) BILIRUBIN TOTAL (BEAKER) 0.3 mg/dL 0.2-1.2 (test rglp=902) SODIUM (BEAKER) (test 137 meq/L 136-145 dcyu=892) POTASSIUM (BEAKER) (test 4.9 meq/L 3.5-5.1 fxih=720) CHLORIDE (BEAKER) (test 99 meq/L 98-107 ragj=024) CO2 (BEAKER) (test 30 meq/L 22-29 muzu=413) BLOOD UREA NITROGEN 44 mg/dL 7-21 (BEAKER) (test ndpu=806) CREATININE (BEAKER) (test 2.12 mg/dL 0.57-1.25 rgak=199) GLUCOSE RANDOM (BEAKER) 110 mg/dL 70-105 (test yhyu=668) CALCIUM (BEAKER) (test 10.6 mg/dL 8.4-10.2 nnor=760) AST (SGOT) (BEAKER) (test 18 U/L 5-34 qfdy=703) ALT (SGPT) (BEAKER) (test 14 U/L 6-55 qpey=402) EGFR (BEAKER) (test 28 mL/min/1.73 sq m ESTIMATED GFR IS NOT lpif=3773) ACCURATE CREATININE CLEARANCE IN PREDICTING GLOMERULAR FILTRATION RATE. ESTIMATED GFR IS NOT APPLICABLE FOR DIALYSIS PATIENTS. B-TYPE NATRIURETIC FACTOR (BNP)2019-01-17 12:45:00 Test Item Value Reference Range Comments B-TYPE NATRIURETIC PEPTIDE (BEAKER) (test 939 pg/mL 0-100 iwwr=564) IRON, TIBC, % SAT. (WITHOUT FERRITIN)2019-01-17 12:39:00 Test Item Value Reference Range Comments IRON (BEAKER) (test fqps=782) 56.0 ug/dL 40.0-160.0 TOTAL IRON BINDING CAPACITY (BEAKER) (test 264 ug/dL 250-450 awzs=845) IRON % SATURATION (2) (BEAKER) (test yhdi=5055) 21 % 20-55 OXYGEN SATURATION, [id number] 12:23:00 Test Item Value Reference Range Comments O2 SATURATION (MEASURED) (BEAKER) (test vbwk=4148) 20.5 % CBC W/PLT COUNT & AUTO [id number] 12:17:00 Test Item Value Reference Range Comments WHITE BLOOD CELL COUNT (BEAKER) (test dnjx=820) 6.1 K/ L 3.5-10.5 RED BLOOD CELL COUNT (BEAKER) (test icor=334) 3.09 M/ L 3.93-5.22 HEMOGLOBIN (BEAKER) (test ovrr=463) 10.1 GM/DL 11.2-15.7 HEMATOCRIT (BEAKER) (test ctqr=368) 32.5 % 34.1-44.9 MEAN CORPUSCULAR VOLUME (BEAKER) (test wqmb=201) 105.2 fL 79.4-94.8 MEAN CORPUSCULAR HEMOGLOBIN (BEAKER) (test 32.7 pg 25.6-32.2 venm=672) MEAN CORPUSCULAR HEMOGLOBIN CONC (BEAKER) (test 31.1 GM/DL 32.2-35.5 zvim=137) RED CELL DISTRIBUTION WIDTH (BEAKER) (test 12.9 % 11.7-14.4 kqbe=137) PLATELET COUNT (BEAKER) (test jafh=452) 279 K/CU MM 150-450 MEAN PLATELET VOLUME (BEAKER) (test jgef=430) 10.0 fL 9.4-12.3 NUCLEATED RED BLOOD CELLS (BEAKER) (test 0 /100 WBC 0-0 xxos=405) NEUTROPHILS RELATIVE PERCENT (BEAKER) (test 81 % nkgr=999) LYMPHOCYTES RELATIVE PERCENT (BEAKER) (test 11 % dszz=464) MONOCYTES RELATIVE PERCENT (BEAKER) (test 6 % omwy=824) EOSINOPHILS RELATIVE PERCENT (BEAKER) (test 2 % belv=156) BASOPHILS RELATIVE PERCENT (BEAKER) (test 1 % opqc=552) NEUTROPHILS ABSOLUTE COUNT (BEAKER) (test 4.94 K/ L 1.56-6.13 duwm=583) LYMPHOCYTES ABSOLUTE COUNT (BEAKER) (test 0.67 K/ L 1.18-3.74 sxho=825) MONOCYTES ABSOLUTE COUNT (BEAKER) (test 0.35 K/ L 0.24-0.36 tmxf=560) EOSINOPHILS ABSOLUTE COUNT (BEAKER) (test 0.10 K/ L 0.04-0.36 zpgw=984) BASOPHILS ABSOLUTE COUNT (BEAKER) (test 0.05 K/ L 0.01-0.08 wtvc=984) IMMATURE GRANULOCYTES-RELATIVE PERCENT (BEAKER) 0 % 0-1 (test pgmv=6877) CT, CTA, [id number] 18:12:00[facility]- Dr. Levy/ Marcus Reddy. chano is in network. ppo no referral needed 07/2018cpt 48892 no auth required 2018Addendum BeginsREPORT STATUS:A Addendum: I agree with the previously described non vascular findings. Signed: George Rincon MDReport Verified Date/Time: 11/01/2018 18:12:19 Reading Location: [place] [address] Angio Body Reading RoomAddendum EndsFINAL REPORT CT [...] is seen outside the stent, inside the [place] aorta (essentially present Type I endoleak). In [...] An addendum will be dictated by the Pediatric Dental Assistant Radiologist regarding the nonvascular findings. Signed: Bryan Mahajanort Verified Date/Time:10/31/2018 16:01:37 Reading Location: [place] [id number] Cardiology MRI CT, CTA [id number] 18:12:00[facility]- Dr. Levy/ Marcus Reddy. chano is in network. ppo no referral needed 07/2018cpt 38376 no auth required 10/2018Addendum BeginsREPORT STATUS:A Addendum: I agree with the previously described non vascular findings. Signed: George Rincon Verified Date/Time: 11/01/2018 18:12:19 Reading Location: [facility] [address] Angio Body Reading RoomAddendum EndsFINAL [...] is seen outside the stent, inside the [place] aorta (essentially present Type I endoleak). In [...] An addendum will be dictated by the Pediatric Dental Assistant Radiologist regarding the nonvascular findings. Signed: Bryan Mahajanepcamilla Verified Date/Time:10/31/2018 16:01:37 Reading Location: [place] [id number] Cardiology MRI POCT- [id number] 12:24:00 Test Item Value Reference Range Comments POC-CREATININE (BEAKER) 1.6 mg/dL 0.6-1.3 TESTED AT [facility] [address] [facility] (test hmly=8713) [facility] [address] POC-EGFR (BEAKER) (test 38 mL/min/1.73M2 acsg=9578) B-TYPE NATRIURETIC FACTOR (BNP)2018-10-17 12:58:00 Test Item Value Reference Range Comments B-TYPE NATRIURETIC PEPTIDE (BEAKER) (test 3381 pg/mL 0-100 fvlr=665) BASIC METABOLIC [id number] 12:52:00 Test Item Value Reference Range Comments SODIUM (BEAKER) (test 138 meq/L 136-145 lcbx=298) POTASSIUM (BEAKER) (test 3.6 meq/L 3.5-5.1 yghx=439) CHLORIDE (BEAKER) (test 100 meq/L 98-107 fcyi=557) CO2 (BEAKER) (test 30 meq/L 22-29 atco=282) BLOOD UREA NITROGEN 21 mg/dL 7-21 (BEAKER) (test sdae=476) CREATININE (BEAKER) (test 1.49 mg/dL 0.57-1.25 wgou=039) GLUCOSE RANDOM (BEAKER) 182 mg/dL 70-105 (test njqb=583) CALCIUM (BEAKER) (test 9.7 mg/dL 8.4-10.2 jtis=653) EGFR (BEAKER) (test 42 mL/min/1.73 sq m ESTIMATED GFR IS NOT gkci=7914) ACCURATE CREATININE CLEARANCE IN PREDICTING GLOMERULAR FILTRATION RATE. ESTIMATED GFR IS NOT APPLICABLE FOR DIALYSIS PATIENTS. CBC W/PLT COUNT & AUTO [id number] 12:31:00 Test Item Value Reference Range Comments WHITE BLOOD CELL COUNT (BEAKER) (test qmwl=663) 5.9 K/ L 3.5-10.5 RED BLOOD CELL COUNT (BEAKER) (test qfoa=297) 2.76 M/ L 3.93-5.22 HEMOGLOBIN (BEAKER) (test awrt=313) 8.9 GM/DL 11.2-15.7 HEMATOCRIT (BEAKER) (test gsmg=875) 28.3 % 34.1-44.9 MEAN CORPUSCULAR VOLUME (BEAKER) (test yqyy=984) 102.5 fL 79.4-94.8 MEAN CORPUSCULAR HEMOGLOBIN (BEAKER) (test 32.2 pg 25.6-32.2 druc=513) MEAN CORPUSCULAR HEMOGLOBIN CONC (BEAKER) (test 31.4 GM/DL 32.2-35.5 nfnh=772) RED CELL DISTRIBUTION WIDTH (BEAKER) (test 12.8 % 11.7-14.4 fbyy=902) PLATELET COUNT (BEAKER) (test siex=228) 226 K/CU MM 150-450 MEAN PLATELET VOLUME (BEAKER) (test tguc=505) 9.9 fL 9.4-12.3 NUCLEATED RED BLOOD CELLS (BEAKER) (test 0 /100 WBC 0-0 xcsc=125) NEUTROPHILS RELATIVE PERCENT (BEAKER) (test 80 % nkmq=864) LYMPHOCYTES RELATIVE PERCENT (BEAKER) (test 12 % ujzn=031) MONOCYTES RELATIVE PERCENT (BEAKER) (test 5 % iswo=720) EOSINOPHILS RELATIVE PERCENT (BEAKER) (test 2 % sifv=313) BASOPHILS RELATIVE PERCENT (BEAKER) (test 1 % tajm=951) NEUTROPHILS ABSOLUTE COUNT (BEAKER) (test 4.75 K/ L 1.56-6.13 baaj=547) LYMPHOCYTES ABSOLUTE COUNT (BEAKER) (test 0.71 K/ L 1.18-3.74 uism=070) MONOCYTES ABSOLUTE COUNT (BEAKER) (test 0.31 K/ L 0.24-0.36 xbfq=296) EOSINOPHILS ABSOLUTE COUNT (BEAKER) (test 0.09 K/ L 0.04-0.36 grpn=335) BASOPHILS ABSOLUTE COUNT (BEAKER) (test 0.05 K/ L 0.01-0.08 chpp=332) IMMATURE GRANULOCYTES-RELATIVE PERCENT (BEAKER) 0 % 0-1 (test zpby=7803) HEMOGLOBIN [id number] 13:20:00 Test Item Value Reference Range Comments HEMOGLOBIN A1C (BEAKER) (test bgoc=585) 5.0 % 4.3-6.1 TSH/FREE T4 IF [id number] 11:57:00 Test Item Value Reference Range Comments THYROID STIMULATING HORMONE (BEAKER) (test 0.46 uIU/mL 0.35-4.94 juoh=820) B-TYPE NATRIURETIC FACTOR (BNP)2018-09-13 11:43:00 Test Item Value Reference Range Comments B-TYPE NATRIURETIC PEPTIDE (BEAKER) (test 2747 pg/mL 0-100 dhsa=968) URIC [id number] 11:37:00 Test Item Value Reference Range Comments URIC ACID (BEAKER) (test zcbq=807) 5.5 mg/dL 2.6-7.2 [id number] 11:37:00 Test Item Value Reference Range Comments MAGNESIUM (BEAKER) (test vdul=697) 2.0 mg/dL 1.6-2.6 COMPREHENSIVE METABOLIC [id number] 11:37:00 Test Item Value Reference Range Comments TOTAL PROTEIN (BEAKER) 7.6 gm/dL 6.0-8.3 (test emhi=669) ALBUMIN (BEAKER) (test 3.9 g/dL 3.5-5.0 rjps=7936) ALKALINE PHOSPHATASE 78 U/L 40-150 (BEAKER) (test mgwd=776) BILIRUBIN TOTAL (BEAKER) 0.6 mg/dL 0.2-1.2 (test fjlm=848) SODIUM (BEAKER) (test 139 meq/L 136-145 jjxh=992) POTASSIUM (BEAKER) (test 4.4 meq/L 3.5-5.1 epeo=362) CHLORIDE (BEAKER) (test 98 meq/L 98-107 ehwv=790) CO2 (BEAKER) (test 34 meq/L 22-29 uxow=279) BLOOD UREA NITROGEN 17 mg/dL 7-21 (BEAKER) (test koti=967) CREATININE (BEAKER) (test 1.37 mg/dL 0.57-1.25 laza=171) GLUCOSE RANDOM (BEAKER) 115 mg/dL 70-105 (test lyas=670) CALCIUM (BEAKER) (test 10.0 mg/dL 8.4-10.2 vmhd=022) AST (SGOT) (BEAKER) (test 20 U/L 5-34 gxnx=872) ALT (SGPT) (BEAKER) (test 16 U/L 6-55 saqa=601) EGFR (BEAKER) (test 46 mL/min/1.73 sq m ESTIMATED GFR IS NOT cnki=4186) ACCURATE CREATININE CLEARANCE IN PREDICTING GLOMERULAR FILTRATION RATE. ESTIMATED GFR IS NOT APPLICABLE FOR DIALYSIS PATIENTS. LIPID [id number] 11:37:00 Test Item Value Reference Range Comments TRIGLYCERIDES (BEAKER) (test zyrx=332) 82 mg/dL CHOLESTEROL (BEAKER) (test bcfj=235) 185 mg/dL HDL CHOLESTEROL (BEAKER) (test xxhr=151) 111 mg/dL LDL CHOLESTEROL CALCULATED (BEAKER) (test 58 mg/dL zxwe=799) Triglyceride Reference Range: Low Risk <150 Borderline 150- 199 High Risk 200-499 Very High Risk >=500Cholesterol Reference Range: Low Risk <200 Borderline 200-239 High Risk > 240HDL Cholesterol Reference Range: Low Risk >=60 High Risk <40LDL Cholesterol Reference Range: Optimal <100 Near Optimal 100-129 Borderline 130-159 High 160-189 Very High >=[id number] 11:35:00 Test Item Value Reference Range Comments PREALBUMIN (BEAKER) (test kqbf=068) 19 mg/dL 14-45 PROTHROMBIN [id number] 11:24:00 Test Item Value Reference Range Comments PROTIME (BEAKER) (test igdo=019) 13.3 seconds 11.9-14.2 INR (BEAKER) (test tykn=276) 1.1 <=5.9 Effective 08/30/2018: PT Reference Range ChangeNew: 11.9-14.2 Previous: 11.7- 14.7RECOMMENDED COUMADIN/WARFARIN INR THERAPY RANGESSTANDARD DOSE: 2.0-3.0 Includes: PROPHYLAXIS for venous thrombosis, systemic embolization; TREATMENT for venous thrombosis and/or pulmonary embolus.HIGH RISK: Target INR is2.5-3.5 for patients wiht mechanical heart valves.CBC W/PLT COUNT & AUTO [id number] 11:17:00 Test Item Value Reference Range Comments WHITE BLOOD CELL COUNT (BEAKER) (test nmkc=792) 6.5 K/ L 3.5-10.5 RED BLOOD CELL COUNT (BEAKER) (test okpe=492) 3.02 M/ L 3.93-5.22 HEMOGLOBIN (BEAKER) (test anwx=937) 9.7 GM/DL 11.2-15.7 HEMATOCRIT (BEAKER) (test ymws=964) 31.1 % 34.1-44.9 MEAN CORPUSCULAR VOLUME (BEAKER) (test hpfh=025) 103.0 fL 79.4-94.8 MEAN CORPUSCULAR HEMOGLOBIN (BEAKER) (test 32.1 pg 25.6-32.2 lbzf=504) MEAN CORPUSCULAR HEMOGLOBIN CONC (BEAKER) (test 31.2 GM/DL 32.2-35.5 fiib=818) RED CELL DISTRIBUTION WIDTH (BEAKER) (test 13.0 % 11.7-14.4 sowq=429) PLATELET COUNT (BEAKER) (test qnpa=872) 239 K/CU MM 150-450 MEAN PLATELET VOLUME (BEAKER) (test islf=849) 9.4 fL 9.4-12.3 NUCLEATED RED BLOOD CELLS (BEAKER) (test 0 /100 WBC 0-0 jbxn=764) NEUTROPHILS RELATIVE PERCENT (BEAKER) (test 81 % ashw=271) LYMPHOCYTES RELATIVE PERCENT (BEAKER) (test 10 % pmoy=158) MONOCYTES RELATIVE PERCENT (BEAKER) (test 6 % vqnz=254) EOSINOPHILS RELATIVE PERCENT (BEAKER) (test 2 % omdf=778) BASOPHILS RELATIVE PERCENT (BEAKER) (test 1 % mynm=124) NEUTROPHILS ABSOLUTE COUNT (BEAKER) (test 5.23 K/ L 1.56-6.13 nwit=922) LYMPHOCYTES ABSOLUTE COUNT (BEAKER) (test 0.65 K/ L 1.18-3.74 wnsv=948) MONOCYTES ABSOLUTE COUNT (BEAKER) (test 0.39 K/ L 0.24-0.36 uvlw=501) EOSINOPHILS ABSOLUTE COUNT (BEAKER) (test 0.13 K/ L 0.04-0.36 ufru=129) BASOPHILS ABSOLUTE COUNT (BEAKER) (test 0.05 K/ L 0.01-0.08 trsn=534) IMMATURE GRANULOCYTES-RELATIVE PERCENT (BEAKER) 0 % 0-1 (test ohei=5311) POCT-GLUCOSE [id number] 12:29:00 Test Item Value Reference Range Comments POC-GLUCOSE METER (BEAKER) 221 mg/dL 70-110 TESTED AT [address] (test icno=9527) [facility] [address] POCT-GLUCOSE [id number] 09:00:00 Test Item Value Reference Range Comments POC-GLUCOSE METER (BEAKER) 135 mg/dL 70-110 TESTED AT [address] (test tlkr=5183) [facility] [address] RAD, CHEST, 1 VIEW, NON [id number] 08:57:00Reason for exam:->post opShould this be performed [...] MDReport Verified Date/Time: 07/22/2018 08:57:17 Reading Location: [address] Neuro Reading Room Electronicallysigned by: TREY ROBLES MD on 07/22/2018 08:57 [id number] 07:51:00 Test Item Value Reference Range Comments PHOSPHORUS (BEAKER) (test hhfp=657) 3.9 mg/dL 2.3-4.7 [id number] 07:51:00 Test Item Value Reference Range Comments MAGNESIUM (BEAKER) (test bwat=801) 1.7 mg/dL 1.6-2.6 BASIC METABOLIC [id number] 07:51:00 Test Item Value Reference Range Comments SODIUM (BEAKER) (test 139 meq/L 136-145 qpny=484) POTASSIUM (BEAKER) (test 4.4 meq/L 3.5-5.1 afze=213) CHLORIDE (BEAKER) (test 102 meq/L 98-107 zbhc=626) CO2 (BEAKER) (test 30 meq/L 22-29 zsxk=734) BLOOD UREA NITROGEN 23 mg/dL 7-21 (BEAKER) (test ddvb=792) CREATININE (BEAKER) (test 1.40 mg/dL 0.57-1.25 laqs=236) GLUCOSE RANDOM (BEAKER) 139 mg/dL 70-105 (test pdtt=989) CALCIUM (BEAKER) (test 8.8 mg/dL 8.4-10.2 xkvz=574) EGFR (BEAKER) (test 45 mL/min/1.73 sq m ESTIMATED GFR IS NOT lqug=4258) ACCURATE CREATININE CLEARANCE IN PREDICTING GLOMERULAR FILTRATION RATE. ESTIMATED GFR IS NOT APPLICABLE FOR DIALYSIS PATIENTS. [id number] 05:36:00 Test Item Value Reference Range Comments PARTIAL THROMBOPLASTIN TIME (BEAKER) (test 44.5 seconds 22.5-36.0 yglm=616) CBC (HEMOGRAM ONLY)2018-07-22 05:24:00 Test Item Value Reference Range Comments WHITE BLOOD CELL COUNT (BEAKER) (test mgmf=101) 6.6 K/ L 3.5-10.5 RED BLOOD CELL COUNT (BEAKER) (test tbhj=790) 2.45 M/ L 3.93-5.22 HEMOGLOBIN (BEAKER) (test ashj=206) 7.7 GM/DL 11.2-15.7 HEMATOCRIT (BEAKER) (test rphd=089) 26.1 % 34.1-44.9 MEAN CORPUSCULAR VOLUME (BEAKER) (test ygts=036) 106.5 fL 79.4-94.8 MEAN CORPUSCULAR HEMOGLOBIN (BEAKER) (test 31.4 pg 25.6-32.2 tsgy=395) MEAN CORPUSCULAR HEMOGLOBIN CONC (BEAKER) (test 29.5 GM/DL 32.2-35.5 vnrr=681) RED CELL DISTRIBUTION WIDTH (BEAKER) (test 18.0 % 11.7-14.4 jrwz=429) PLATELET COUNT (BEAKER) (test fnkb=336) 227 K/CU MM 150-450 MEAN PLATELET VOLUME (BEAKER) (test qzfq=699) 10.0 fL 9.4-12.3 NUCLEATED RED BLOOD CELLS (BEAKER) (test 0 /100 WBC 0-0 micg=614) POCT-GLUCOSE [id number] 21:36:00 Test Item Value Reference Range Comments POC-GLUCOSE METER (BEAKER) 283 mg/dL 70-110 TESTED AT [address] (test qqnd=6128) [place] [id number] POCT-GLUCOSE [id number] 18:26:00 Test Item Value Reference Range Comments POC-GLUCOSE METER (BEAKER) 123 mg/dL 70-110 TESTED AT [address] (test qvzy=8945) [place] [id number] POCT-GLUCOSE [id number] 14:04:00 Test Item Value Reference Range Comments POC-GLUCOSE METER (BEAKER) 152 mg/dL 70-110 TESTED AT [address] (test uljm=8839) [place] [id number] POCT-GLUCOSE [id number] 12:52:00 Test Item Value Reference Range Comments POC-GLUCOSE METER (BEAKER) 228 mg/dL 70-110 TESTED AT [address] (test pvhv=7888) [facility] [address] RAD, CHEST, 1 VIEW, NON [id number] 09:40:00Reason for exam:->post opShould this be performed at the bedside?->YesFINAL REPORT Comparison: 07/20/2018 TECHNIQUE: Single view of the chest FINDINGS: There are nonspecific prominent interstitial markings bilaterally. Trace pleural effusions are seen. No gross new lung parenchymal changes. Cardiac silhouette is enlarged. Thoracic aortic stent grafts noted. Right-sided PICC line is stable. Signed: Olayinka Peters MDReport Verified Date/Time: 07/21/2018 09: 40:18 Reading Location: [facility] Radiology Reading Room POCT-GLUCOSE [id number] 09:10: 00 Test Item Value Reference Range Comments POC-GLUCOSE METER (BEAKER) 239 mg/dL 70-110 TESTED AT [address] (test crtu=9832) [facility] [address] [id number] 06:51:00 Test Item Value Reference Range Comments PHOSPHORUS (BEAKER) (test kmzb=642) 3.4 mg/dL 2.3-4.7 [id number] 06:51:00 Test Item Value Reference Range Comments MAGNESIUM (BEAKER) (test cber=401) 1.8 mg/dL 1.6-2.6 BASIC METABOLIC [id number] 06:51:00 Test Item Value Reference Range Comments SODIUM (BEAKER) (test 137 meq/L 136-145 popp=022) POTASSIUM (BEAKER) (test 4.4 meq/L 3.5-5.1 hgui=741) CHLORIDE (BEAKER) (test 100 meq/L 98-107 ijlc=599) CO2 (BEAKER) (test 31 meq/L 22-29 eojj=422) BLOOD UREA NITROGEN 23 mg/dL 7-21 (BEAKER) (test ywqq=534) CREATININE (BEAKER) (test 1.40 mg/dL 0.57-1.25 trcg=374) GLUCOSE RANDOM (BEAKER) 146 mg/dL 70-105 (test kbbr=300) CALCIUM (BEAKER) (test 9.2 mg/dL 8.4-10.2 ibnr=894) EGFR (BEAKER) (test 45 mL/min/1.73 sq m ESTIMATED GFR IS NOT qzrw=3616) ACCURATE CREATININE CLEARANCE IN PREDICTING GLOMERULAR FILTRATION RATE. ESTIMATED GFR IS NOT APPLICABLE FOR DIALYSIS PATIENTS. [id number] 06:47:00 Test Item Value Reference Range Comments PARTIAL THROMBOPLASTIN TIME (BEAKER) (test 51.7 seconds 22.5-36.0 rjyp=558) CBC (HEMOGRAM ONLY)2018-07-21 06:28:00 Test Item Value Reference Range Comments WHITE BLOOD CELL COUNT (BEAKER) (test gium=804) 5.4 K/ L 3.5-10.5 RED BLOOD CELL COUNT (BEAKER) (test eltq=604) 2.66 M/ L 3.93-5.22 HEMOGLOBIN (BEAKER) (test peef=276) 8.2 GM/DL 11.2-15.7 HEMATOCRIT (BEAKER) (test zdqh=836) 28.3 % 34.1-44.9 MEAN CORPUSCULAR VOLUME (BEAKER) (test ynyq=508) 106.4 fL 79.4-94.8 MEAN CORPUSCULAR HEMOGLOBIN (BEAKER) (test 30.8 pg 25.6-32.2 agnm=309) MEAN CORPUSCULAR HEMOGLOBIN CONC (BEAKER) (test 29.0 GM/DL 32.2-35.5 myze=498) RED CELL DISTRIBUTION WIDTH (BEAKER) (test 18.3 % 11.7-14.4 mkcb=116) PLATELET COUNT (BEAKER) (test uuar=767) 211 K/CU MM 150-450 MEAN PLATELET VOLUME (BEAKER) (test vjpm=509) 10.3 fL 9.4-12.3 NUCLEATED RED BLOOD CELLS (BEAKER) (test 0 /100 WBC 0-0 lnje=304) POCT-GLUCOSE [id number] 21:18:00 Test Item Value Reference Range Comments POC-GLUCOSE METER (BEAKER) 245 mg/dL 70-110 TESTED AT [address] (test pjim=8830) [place] [id number] POCT-GLUCOSE [id number] 18:12:00 Test Item Value Reference Range Comments POC-GLUCOSE METER (BEAKER) 158 mg/dL 70-110 TESTED AT [address] (test khwx=5324) [place] [id number] POCT-GLUCOSE [id number] 12:46:00 Test Item Value Reference Range Comments POC-GLUCOSE METER (BEAKER) 178 mg/dL 70-110 TESTED AT [address] (test tqud=4241) [facility] [address] RAD, CHEST, 1 VIEW, NON [id number] 08:43:00Reason for exam:->post opShould this be performed at the bedside?->YesFINAL REPORT Chest one view. Clinical history: post op Comparison: 2018Discussion: A frontal chest is provided. Cardiomediastinal contours are unchanged. Lines and tubesare in stable position. Stable appearance of vascular congestion and interstitial edema. Small bilateral pleural effusions. No pneumothorax. Signed: Morgan Cheng Verified Date/Time: 07/20/2018 08:43 :10 Reading Location: [facility] Radiology Reading Room POCT-GLUCOSE [id number] 08:05:00 Test Item Value Reference Range Comments POC-GLUCOSE METER (BEAKER) 114 mg/dL 70-110 TESTED AT [facility] [address] (test tvce=4730) [facility] [address] [id number] 06:55:00 Test Item Value Reference Range Comments PHOSPHORUS (BEAKER) (test xdgi=840) 3.4 mg/dL 2.3-4.7 [id number] 06:55:00 Test Item Value Reference Range Comments MAGNESIUM (BEAKER) (test zvri=122) 1.5 mg/dL 1.6-2.6 BASIC METABOLIC [id number] 06:55:00 Test Item Value Reference Range Comments SODIUM (BEAKER) (test 137 meq/L 136-145 qxrf=432) POTASSIUM (BEAKER) (test 4.4 meq/L 3.5-5.1 ayba=254) CHLORIDE (BEAKER) (test 101 meq/L 98-107 zmnm=105) CO2 (BEAKER) (test 27 meq/L 22-29 pojp=997) BLOOD UREA NITROGEN 23 mg/dL 7-21 (BEAKER) (test qxqv=068) CREATININE (BEAKER) (test 1.28 mg/dL 0.57-1.25 cmee=564) GLUCOSE RANDOM (BEAKER) 150 mg/dL 70-105 (test puwp=215) CALCIUM (BEAKER) (test 9.0 mg/dL 8.4-10.2 grfu=993) EGFR (BEAKER) (test 50 mL/min/1.73 sq m ESTIMATED GFR IS NOT dnyq=0494) ACCURATE CREATININE CLEARANCE IN PREDICTING GLOMERULAR FILTRATION RATE. ESTIMATED GFR IS NOT APPLICABLE FOR DIALYSIS PATIENTS. [id number] 06:28:00 Test Item Value Reference Range Comments PARTIAL THROMBOPLASTIN TIME (BEAKER) (test 44.5 seconds 22.5-36.0 dydz=635) CBC (HEMOGRAM ONLY)2018-07-20 06:19:00 Test Item Value Reference Range Comments WHITE BLOOD CELL COUNT (BEAKER) (test klef=881) 5.5 K/ L 3.5-10.5 RED BLOOD CELL COUNT (BEAKER) (test wynr=433) 2.58 M/ L 3.93-5.22 HEMOGLOBIN (BEAKER) (test zzmr=202) 7.9 GM/DL 11.2-15.7 HEMATOCRIT (BEAKER) (test stqh=204) 27.1 % 34.1-44.9 MEAN CORPUSCULAR VOLUME (BEAKER) (test hssz=178) 105.0 fL 79.4-94.8 MEAN CORPUSCULAR HEMOGLOBIN (BEAKER) (test 30.6 pg 25.6-32.2 xzlu=287) MEAN CORPUSCULAR HEMOGLOBIN CONC (BEAKER) (test 29.2 GM/DL 32.2-35.5 tkbg=013) RED CELL DISTRIBUTION WIDTH (BEAKER) (test 18.5 % 11.7-14.4 ylpm=486) PLATELET COUNT (BEAKER) (test nlpf=779) 189 K/CU MM 150-450 MEAN PLATELET VOLUME (BEAKER) (test gyra=965) 9.9 fL 9.4-12.3 NUCLEATED RED BLOOD CELLS (BEAKER) (test 0 /100 WBC 0-0 mnht=657) POCT-GLUCOSE [id number] 00:43:00 Test Item Value Reference Range Comments POC-GLUCOSE METER (BEAKER) 135 mg/dL 70-110 TESTED AT [address] (test nicx=4701) [facility] [address] POCT-GLUCOSE [id number] 21:19:00 Test Item Value Reference Range Comments POC-GLUCOSE METER (BEAKER) 284 mg/dL 70-110 TESTED AT [address] (test kvqq=5271) [facility] [address] POCT-GLUCOSE [id number] 17:54:00 Test Item Value Reference Range Comments POC-GLUCOSE METER (BEAKER) 146 mg/dL 70-110 TESTED AT [address] (test nynp=6884) [facility] [address] POCT-GLUCOSE [id number] 14:15:00 Test Item Value Reference Range Comments POC-GLUCOSE METER (BEAKER) 230 mg/dL 70-110 TESTED AT [address] (test xzao=0189) [facility] [address] RAD, CHEST, 1 VIEW, NON [id number] 08:30:00Reason for exam:->post opShould this be performed [...] MDReport Verified Date/Time: 07/19/2018 08:30:21 Reading Location: [facility] Radiology Reading Room POCT-GLUCOSE [id number] 07:30:00 Test Item Value Reference Range Comments POC-GLUCOSE METER (BEAKER) 177 mg/dL 70-110 TESTED AT [facility] [address] [facility] (test kqcj=7927) [facility] [address] [id number] 05:20:00 Test Item Value Reference Range Comments PHOSPHORUS (BEAKER) (test road=152) 3.5 mg/dL 2.3-4.7 [id number] 05:20:00 Test Item Value Reference Range Comments MAGNESIUM (BEAKER) (test gedg=003) 1.8 mg/dL 1.6-2.6 BASIC METABOLIC [id number] 05:20:00 Test Item Value Reference Range Comments SODIUM (BEAKER) (test 142 meq/L 136-145 xetk=365) POTASSIUM (BEAKER) (test 4.5 meq/L 3.5-5.1 lfmm=982) CHLORIDE (BEAKER) (test 107 meq/L 98-107 emxh=847) CO2 (BEAKER) (test 31 meq/L 22-29 pjcy=650) BLOOD UREA NITROGEN 25 mg/dL 7-21 (BEAKER) (test yedp=187) CREATININE (BEAKER) (test 1.35 mg/dL 0.57-1.25 hfhh=557) GLUCOSE RANDOM (BEAKER) 165 mg/dL 70-105 (test gqzj=481) CALCIUM (BEAKER) (test 9.1 mg/dL 8.4-10.2 fdma=603) EGFR (BEAKER) (test 47 mL/min/1.73 sq m ESTIMATED GFR IS NOT qofc=8774) ACCURATE CREATININE CLEARANCE IN PREDICTING GLOMERULAR FILTRATION RATE. ESTIMATED GFR IS NOT APPLICABLE FOR DIALYSIS PATIENTS. [id number] 05:17:00 Test Item Value Reference Range Comments PARTIAL THROMBOPLASTIN TIME (BEAKER) (test 44.9 seconds 22.5-36.0 bjse=148) PROTHROMBIN [id number] 05:16:00 Test Item Value Reference Range Comments PROTIME (BEAKER) (test sord=145) 13.9 seconds 11.7-14.7 INR (BEAKER) (test zkvm=301) 1.1 <=5.9 RECOMMENDED COUMADIN/WARFARIN INR THERAPY RANGESSTANDARD DOSE: 2.0 - 3.0 Includes: PROPHYLAXIS forvenous thrombosis, systemic embolization; TREATMENT for venous thrombosis and/or pulmonary embolus.HIGH RISK: Target INR is 2.5-3.5 for patients with mechanical heart valves.CBC (HEMOGRAM ONLY)2018-07-19 05:02:00 Test Item Value Reference Range Comments WHITE BLOOD CELL COUNT (BEAKER) (test sujm=262) 6.3 K/ L 3.5-10.5 RED BLOOD CELL COUNT (BEAKER) (test pesp=114) 2.59 M/ L 3.93-5.22 HEMOGLOBIN (BEAKER) (test zctb=326) 8.1 GM/DL 11.2-15.7 HEMATOCRIT (BEAKER) (test slrv=155) 27.6 % 34.1-44.9 MEAN CORPUSCULAR VOLUME (BEAKER) (test uihj=619) 106.6 fL 79.4-94.8 MEAN CORPUSCULAR HEMOGLOBIN (BEAKER) (test 31.3 pg 25.6-32.2 jxjj=720) MEAN CORPUSCULAR HEMOGLOBIN CONC (BEAKER) (test 29.3 GM/DL 32.2-35.5 bygt=367) RED CELL DISTRIBUTION WIDTH (BEAKER) (test 18.6 % 11.7-14.4 qlht=521) PLATELET COUNT (BEAKER) (test zyzy=095) 186 K/CU MM 150-450 MEAN PLATELET VOLUME (BEAKER) (test kmng=940) 9.7 fL 9.4-12.3 NUCLEATED RED BLOOD CELLS (BEAKER) (test 0 /100 WBC 0-0 pdja=195) POCT-GLUCOSE [id number] 23:14:00 Test Item Value Reference Range Comments POC-GLUCOSE METER (BEAKER) 173 mg/dL 70-110 TESTED AT [address] (test lfnl=0162) [facility] [address] POCT-GLUCOSE [id number] 21:47:00 Test Item Value Reference Range Comments POC-GLUCOSE METER (BEAKER) 237 mg/dL 70-110 TESTED AT [address] (test dxsd=7180) [facility] [address] POCT-GLUCOSE [id number] 18:16:00 Test Item Value Reference Range Comments POC-GLUCOSE METER (BEAKER) 234 mg/dL 70-110 TESTED AT [address] (test fsbn=8580) [facility] [address] POCT-GLUCOSE [id number] 08:34:00 Test Item Value Reference Range Comments POC-GLUCOSE METER (BEAKER) 127 mg/dL 70-110 TESTED AT [address] (test sxfa=4030) [facility] [address] RAD, CHEST, 1 VIEW, NON [id number] 08:16:00Reason for exam:->post opShould this be performed [...] Cheng Verified Date/Time: 07/18/2018 08:16:56 Reading Location: [facility] Radiology Reading Room 08: 16 AMCBC (HEMOGRAM ONLY)2018-07-18 04:48:00 Test Item Value Reference Range Comments WHITE BLOOD CELL COUNT (BEAKER) (test utaj=723) 7.8 K/ L 3.5-10.5 RED BLOOD CELL COUNT (BEAKER) (test ieok=276) 2.64 M/ L 3.93-5.22 HEMOGLOBIN (BEAKER) (test gcel=966) 8.1 GM/DL 11.2-15.7 HEMATOCRIT (BEAKER) (test ertr=149) 28.1 % 34.1-44.9 MEAN CORPUSCULAR VOLUME (BEAKER) (test tcop=155) 106.4 fL 79.4-94.8 MEAN CORPUSCULAR HEMOGLOBIN (BEAKER) (test 30.7 pg 25.6-32.2 lvob=603) MEAN CORPUSCULAR HEMOGLOBIN CONC (BEAKER) (test 28.8 GM/DL 32.2-35.5 mjup=137) RED CELL DISTRIBUTION WIDTH (BEAKER) (test 18.9 % 11.7-14.4 vsoy=003) PLATELET COUNT (BEAKER) (test kkgb=653) 197 K/CU MM 150-450 MEAN PLATELET VOLUME (BEAKER) (test igkc=601) 10.2 fL 9.4-12.3 NUCLEATED RED BLOOD CELLS (BEAKER) (test 0 /100 WBC 0-0 mlhq=512) [id number] 04:40:00 Test Item Value Reference Range Comments PHOSPHORUS (BEAKER) (test liej=119) 3.6 mg/dL 2.3-4.7 [id number] 04:40:00 Test Item Value Reference Range Comments MAGNESIUM (BEAKER) (test ynat=292) 1.8 mg/dL 1.6-2.6 BASIC METABOLIC [id number] 04:40:00 Test Item Value Reference Range Comments SODIUM (BEAKER) (test 140 meq/L 136-145 ixob=501) POTASSIUM (BEAKER) (test 4.5 meq/L 3.5-5.1 ztfh=877) CHLORIDE (BEAKER) (test 106 meq/L 98-107 eidb=726) CO2 (BEAKER) (test 26 meq/L 22-29 ocbs=749) BLOOD UREA NITROGEN 23 mg/dL 7-21 (BEAKER) (test hplf=640) CREATININE (BEAKER) (test 1.34 mg/dL 0.57-1.25 kcwn=061) GLUCOSE RANDOM (BEAKER) 105 mg/dL 70-105 (test axnf=212) CALCIUM (BEAKER) (test 9.1 mg/dL 8.4-10.2 puvp=309) EGFR (BEAKER) (test 47 mL/min/1.73 sq m ESTIMATED GFR IS NOT engp=4345) ACCURATE CREATININE CLEARANCE IN PREDICTING GLOMERULAR FILTRATION RATE. ESTIMATED GFR IS NOT APPLICABLE FOR DIALYSIS PATIENTS. [id number] 04:22:00 Test Item Value Reference Range Comments PARTIAL THROMBOPLASTIN TIME (BEAKER) (test 56.8 seconds 22.5-36.0 dpwd=895) PROTHROMBIN [id number] 04:20:00 Test Item Value Reference Range Comments PROTIME (BEAKER) (test palt=639) 13.9 seconds 11.7-14.7 INR (BEAKER) (test dppd=924) 1.0 <=5.9 RECOMMENDED COUMADIN/WARFARIN INR THERAPY RANGESSTANDARD DOSE: 2.0 - 3.0 Includes: PROPHYLAXIS forvenous thrombosis, systemic embolization; TREATMENT for venous thrombosis and/or pulmonary embolus.HIGH RISK: Target INR is 2.5-3.5 for patients with mechanical heart valves.POCT-GLUCOSE [id number] 20:54:00 Test Item Value Reference Range Comments POC-GLUCOSE METER (BEAKER) 311 mg/dL 70-110 Patient on insulin Drip/TESTED (test zcah=2528) AT [place] [id number] POCT-GLUCOSE [id number] 18:21:00 Test Item Value Reference Range Comments POC-GLUCOSE METER (BEAKER) 186 mg/dL 70-110 TESTED AT [address] (test fteh=5295) [place] [address] POCT-GLUCOSE [id number] 13:16:00 Test Item Value Reference Range Comments POC-GLUCOSE METER (BEAKER) 153 mg/dL 70-110 TESTED AT [address] (test jiuq=0642) [place] [id number] POCT-GLUCOSE [id number] 09:26:00 Test Item Value Reference Range Comments POC-GLUCOSE METER (BEAKER) 128 mg/dL 70-110 TESTED AT [address] (test hhkb=0661) [place] [id number] RAD, CHEST, 1 VIEW, NON [id number] 07:39:00Reason for exam:->post opShould this be performed [...] MDReport Verified Date/Time: 2018 07:39:00 Reading Location: [facility] Radiology Reading Room Electronically signed by: AZUL SAM M.D.on 07/17/2018 07:39 [id number] 06:22:00 Test Item Value Reference Range Comments PHOSPHORUS (BEAKER) (test fzxv=196) 3.6 mg/dL 2.3-4.7 [id number] 06:22:00 Test Item Value Reference Range Comments MAGNESIUM (BEAKER) (test cgph=475) 1.9 mg/dL 1.6-2.6 BASIC METABOLIC [id number] 06:22:00 Test Item Value Reference Range Comments SODIUM (BEAKER) (test 142 meq/L 136-145 oleh=704) POTASSIUM (BEAKER) (test 4.6 meq/L 3.5-5.1 agbr=060) CHLORIDE (BEAKER) (test 106 meq/L 98-107 cvek=441) CO2 (BEAKER) (test 30 meq/L 22-29 qbvc=109) BLOOD UREA NITROGEN 23 mg/dL 7-21 (BEAKER) (test kjpi=754) CREATININE (BEAKER) (test 1.31 mg/dL 0.57-1.25 elhf=313) GLUCOSE RANDOM (BEAKER) 88 mg/dL 70-105 (test fcok=025) CALCIUM (BEAKER) (test 8.9 mg/dL 8.4-10.2 mlwn=639) EGFR (BEAKER) (test 49 mL/min/1.73 sq m ESTIMATED GFR IS NOT xkjd=4071) ACCURATE CREATININE CLEARANCE IN PREDICTING GLOMERULAR FILTRATION RATE. ESTIMATED GFR IS NOT APPLICABLE FOR DIALYSIS PATIENTS. [id number] 05:10:00 Test Item Value Reference Range Comments PARTIAL THROMBOPLASTIN TIME (BEAKER) (test 52.0 seconds 22.5-36.0 pwol=472) PROTHROMBIN [id number] 05:09:00 Test Item Value Reference Range Comments PROTIME (BEAKER) (test fnkl=404) 14.3 seconds 11.7-14.7 INR (BEAKER) (test nwgg=066) 1.1 <=5.9 RECOMMENDED COUMADIN/WARFARIN INR THERAPY RANGESSTANDARD DOSE: 2.0 - 3.0 Includes: PROPHYLAXIS forvenous thrombosis, systemic embolization; TREATMENT for venous thrombosis and/or pulmonary embolus.HIGH RISK: Target INR is 2.5-3.5 for patients with mechanical heart valves.CBC (HEMOGRAM ONLY)2018-07-17 04:55:00 Test Item Value Reference Range Comments WHITE BLOOD CELL COUNT (BEAKER) (test mski=222) 7.5 K/ L 3.5-10.5 RED BLOOD CELL COUNT (BEAKER) (test nwzz=869) 2.63 M/ L 3.93-5.22 HEMOGLOBIN (BEAKER) (test rqfa=644) 8.1 GM/DL 11.2-15.7 HEMATOCRIT (BEAKER) (test muhg=514) 27.7 % 34.1-44.9 MEAN CORPUSCULAR VOLUME (BEAKER) (test dkoo=819) 105.3 fL 79.4-94.8 MEAN CORPUSCULAR HEMOGLOBIN (BEAKER) (test 30.8 pg 25.6-32.2 owno=737) MEAN CORPUSCULAR HEMOGLOBIN CONC (BEAKER) (test 29.2 GM/DL 32.2-35.5 kbqu=842) RED CELL DISTRIBUTION WIDTH (BEAKER) (test 18.9 % 11.7-14.4 lpma=423) PLATELET COUNT (BEAKER) (test psou=032) 215 K/CU MM 150-450 MEAN PLATELET VOLUME (BEAKER) (test wadc=356) 10.2 fL 9.4-12.3 NUCLEATED RED BLOOD CELLS (BEAKER) (test 0 /100 WBC 0-0 fetl=238) POCT-GLUCOSE [id number] 21:30:00 Test Item Value Reference Range Comments POC-GLUCOSE METER (BEAKER) 217 mg/dL 70-110 TESTED AT [address] (test vqpj=7160) [facility] [address] POCT-GLUCOSE [id number] 18:00:00 Test Item Value Reference Range Comments POC-GLUCOSE METER (BEAKER) 192 mg/dL 70-110 TESTED AT [address] (test cihr=8382) [facility] [address] POCT-GLUCOSE [id number] 14:32:00 Test Item Value Reference Range Comments POC-GLUCOSE METER (BEAKER) 203 mg/dL 70-110 TESTED AT [address] (test yehd=7959) [facility] [address] POCT-GLUCOSE [id number] 09:41:00 Test Item Value Reference Range Comments POC-GLUCOSE METER (BEAKER) 113 mg/dL 70-110 TESTED AT [address] (test ttrq=4767) [facility] [address] [id number] 08:49:00 Test Item Value Reference Range Comments PHOSPHORUS (BEAKER) (test tshy=945) 3.9 mg/dL 2.3-4.7 [id number] 08:49:00 Test Item Value Reference Range Comments MAGNESIUM (BEAKER) (test irzd=216) 2.0 mg/dL 1.6-2.6 BASIC METABOLIC [id number] 08:49:00 Test Item Value Reference Range Comments SODIUM (BEAKER) (test 142 meq/L 136-145 mkoe=277) POTASSIUM (BEAKER) (test 4.5 meq/L 3.5-5.1 afqz=243) CHLORIDE (BEAKER) (test 105 meq/L 98-107 pwtd=411) CO2 (BEAKER) (test 30 meq/L 22-29 kmkk=549) BLOOD UREA NITROGEN 24 mg/dL 7-21 (BEAKER) (test tjpj=816) CREATININE (BEAKER) (test 1.25 mg/dL 0.57-1.25 ykee=311) GLUCOSE RANDOM (BEAKER) 80 mg/dL 70-105 (test obkf=421) CALCIUM (BEAKER) (test 8.8 mg/dL 8.4-10.2 ihvy=034) EGFR (BEAKER) (test 51 mL/min/1.73 sq m ESTIMATED GFR IS NOT fbgq=3546) ACCURATE CREATININE CLEARANCE IN PREDICTING GLOMERULAR FILTRATION RATE. ESTIMATED GFR IS NOT APPLICABLE FOR DIALYSIS PATIENTS. RAD, CHEST, 1 VIEW, NON [id number] 08:09:00Reason for exam:->post opShould this be performed [...] Lopez Verified Date/Time: 07/16/2018 08:09:34 Reading Location: [address] Body Reading Room 08: 09 AMPROTHROMBIN TIME/[id number] 05:46:00 Test Item Value Reference Range Comments PROTIME (BEAKER) (test toun=090) 14.0 seconds 11.7-14.7 INR (BEAKER) (test hlmf=235) 1.1 <=5.9 RECOMMENDED COUMADIN/WARFARIN INR THERAPY RANGESSTANDARD DOSE: 2.0 - 3.0 Includes: PROPHYLAXIS forvenous thrombosis, systemic embolization; TREATMENT for venous thrombosis and/or pulmonary embolus.HIGH RISK: Target INR is 2.5-3.5 for patients with mechanical heart valves.[id number] 05:46:00 Test Item Value Reference Range Comments PARTIAL THROMBOPLASTIN TIME (BEAKER) (test 54.5 seconds 22.5-36.0 axya=543) CBC (HEMOGRAM ONLY)2018-07-16 05:33:00 Test Item Value Reference Range Comments WHITE BLOOD CELL COUNT (BEAKER) (test hmll=204) 6.6 K/ L 3.5-10.5 RED BLOOD CELL COUNT (BEAKER) (test wxbo=383) 2.75 M/ L 3.93-5.22 HEMOGLOBIN (BEAKER) (test ppid=047) 8.5 GM/DL 11.2-15.7 HEMATOCRIT (BEAKER) (test zatf=048) 28.5 % 34.1-44.9 MEAN CORPUSCULAR VOLUME (BEAKER) (test eesc=737) 103.6 fL 79.4-94.8 MEAN CORPUSCULAR HEMOGLOBIN (BEAKER) (test 30.9 pg 25.6-32.2 hpgg=242) MEAN CORPUSCULAR HEMOGLOBIN CONC (BEAKER) (test 29.8 GM/DL 32.2-35.5 nssi=301) RED CELL DISTRIBUTION WIDTH (BEAKER) (test 19.1 % 11.7-14.4 mzsv=825) PLATELET COUNT (BEAKER) (test mzgk=872) 240 K/CU MM 150-450 MEAN PLATELET VOLUME (BEAKER) (test ylap=466) 10.1 fL 9.4-12.3 NUCLEATED RED BLOOD CELLS (BEAKER) (test 0 /100 WBC 0-0 uiai=059) POCT-GLUCOSE [id number] 21:14:00 Test Item Value Reference Range Comments POC-GLUCOSE METER (BEAKER) 152 mg/dL 70-110 TESTED AT [address] (test hyzb=4870) [place] [id number] POCT-GLUCOSE [id number] 19:03:00 Test Item Value Reference Range Comments POC-GLUCOSE METER (BEAKER) 173 mg/dL 70-110 TESTED AT [address] (test pbug=6266) [place] [id number] POCT-GLUCOSE [id number] 13:33:00 Test Item Value Reference Range Comments POC-GLUCOSE METER (BEAKER) 274 mg/dL 70-110 TESTED AT [address] (test ndls=0420) [place] [id number] POCT-GLUCOSE [id number] 10:28:00 Test Item Value Reference Range Comments POC-GLUCOSE METER (BEAKER) 131 mg/dL 70-110 TESTED AT [address] (test oeom=6616) [place] [id number] POCT-GLUCOSE [id number] 06:41:00 Test Item Value Reference Range Comments POC-GLUCOSE METER (BEAKER) 152 mg/dL 70-110 TESTED AT [address] (test jdpm=9428) [place] [address] [id number] 04:02:00 Test Item Value Reference Range Comments PHOSPHORUS (BEAKER) (test yzqq=886) 3.6 mg/dL 2.3-4.7 [id number] 04:02:00 Test Item Value Reference Range Comments MAGNESIUM (BEAKER) (test lvno=129) 2.1 mg/dL 1.6-2.6 BASIC METABOLIC [id number] 04:02:00 Test Item Value Reference Range Comments SODIUM (BEAKER) (test 135 meq/L 136-145 xore=773) POTASSIUM (BEAKER) (test 4.6 meq/L 3.5-5.1 fceg=210) CHLORIDE (BEAKER) (test 101 meq/L 98-107 fnck=951) CO2 (BEAKER) (test 27 meq/L 22-29 mhbb=253) BLOOD UREA NITROGEN 23 mg/dL 7-21 (BEAKER) (test xnwf=390) CREATININE (BEAKER) (test 1.37 mg/dL 0.57-1.25 hpjt=230) GLUCOSE RANDOM (BEAKER) 187 mg/dL 70-105 (test qblh=946) CALCIUM (BEAKER) (test 8.4 mg/dL 8.4-10.2 jwpt=359) EGFR (BEAKER) (test 46 mL/min/1.73 sq m ESTIMATED GFR IS NOT yjvq=8610) ACCURATE CREATININE CLEARANCE IN PREDICTING GLOMERULAR FILTRATION RATE. ESTIMATED GFR IS NOT APPLICABLE FOR DIALYSIS PATIENTS. [id number] 03:57:00 Test Item Value Reference Range Comments PARTIAL THROMBOPLASTIN TIME (BEAKER) (test 44.5 seconds 22.5-36.0 mmdb=305) PROTHROMBIN TIME/[id number] 03:56:00 Test Item Value Reference Range Comments PROTIME (BEAKER) (test cevd=803) 13.4 seconds 11.7-14.7 INR (BEAKER) (test ugji=412) 1.0 <=5.9 RECOMMENDED COUMADIN/WARFARIN INR THERAPY RANGESSTANDARD DOSE: 2.0 - 3.0 Includes: PROPHYLAXIS forvenous thrombosis, systemic embolization; TREATMENT for venous thrombosis and/or pulmonary embolus.HIGH RISK: Target INR is 2.5-3.5 for patients with mechanical heart valves.RAD, CHEST, 1 VIEW, NON [id number] 03:40:00Reason for exam:->post opShould this be [...] MDRepcamilla Verified Date/Time: 07/15/2018 03:40:13 Reading Location: [facility] C0[facility] Neuro Reading Room 03: 40 AMCBC (HEMOGRAM ONLY)2018-07-15 03:33:00 Test Item Value Reference Range Comments WHITE BLOOD CELL COUNT (BEAKER) (test ilud=808) 7.2 K/ L 3.5-10.5 RED BLOOD CELL COUNT (BEAKER) (test citz=023) 2.91 M/ L 3.93-5.22 HEMOGLOBIN (BEAKER) (test cvrz=461) 8.9 GM/DL 11.2-15.7 HEMATOCRIT (BEAKER) (test luqw=251) 30.2 % 34.1-44.9 MEAN CORPUSCULAR VOLUME (BEAKER) (test fkxj=513) 103.8 fL 79.4-94.8 MEAN CORPUSCULAR HEMOGLOBIN (BEAKER) (test 30.6 pg 25.6-32.2 zwlm=278) MEAN CORPUSCULAR HEMOGLOBIN CONC (BEAKER) (test 29.5 GM/DL 32.2-35.5 quvj=304) RED CELL DISTRIBUTION WIDTH (BEAKER) (test 19.2 % 11.7-14.4 jujc=988) PLATELET COUNT (BEAKER) (test nyxw=219) 217 K/CU MM 150-450 MEAN PLATELET VOLUME (BEAKER) (test gzfz=020) 9.8 fL 9.4-12.3 NUCLEATED RED BLOOD CELLS (BEAKER) (test 0 /100 WBC 0-0 esxm=846) POCT-GLUCOSE [id number] 21:46:00 Test Item Value Reference Range Comments POC-GLUCOSE METER (BEAKER) 263 mg/dL 70-110 TESTED AT [address] (test wrau=9896) [facility] [address] POCT-GLUCOSE [id number] 19:03:00 Test Item Value Reference Range Comments POC-GLUCOSE METER (BEAKER) 178 mg/dL 70-110 TESTED AT [address] (test unuf=9651) [facility] [address] POCT-GLUCOSE [id number] 17:02:00 Test Item Value Reference Range Comments POC-GLUCOSE METER (BEAKER) 126 mg/dL 70-110 TESTED AT [address] (test zgkr=1945) [facility] [address] POCT-GLUCOSE [id number] 11:34:00 Test Item Value Reference Range Comments POC-GLUCOSE METER (BEAKER) 202 mg/dL 70-110 TESTED AT [address] (test xcqm=6186) [facility] [address] RAD, CHEST, 1 VIEW, NON [id number] 05:46:00Reason for exam:->post opShould this be performed [...] Robles Verified Date/Time: 07/14/2018 05:46:57 Reading Location: [address] Neuro Reading Room [id number] 04:03:00 Test Item Value Reference Range Comments MAGNESIUM (BEAKER) (test 2.2 mg/dL 1.6-2.6 Specimen slightly hemolyzed vhwa=751) [id number] 04:03:00 Test Item Value Reference Range Comments PHOSPHORUS (BEAKER) (test 2.9 mg/dL 2.3-4.7 Specimen slightly hemolyzed iljk=890) BASIC METABOLIC [id number] 04:03:00 Test Item Value Reference Range Comments SODIUM (BEAKER) (test 138 meq/L 136-145 rotv=410) POTASSIUM (BEAKER) (test 5.0 meq/L 3.5-5.1 Specimen slightly uxyh=487) hemolyzed CHLORIDE (BEAKER) (test 103 meq/L 98-107 gqhx=894) CO2 (BEAKER) (test 29 meq/L 22-29 hldb=998) BLOOD UREA NITROGEN 23 mg/dL 7-21 (BEAKER) (test mffo=398) CREATININE (BEAKER) (test 1.41 mg/dL 0.57-1.25 Specimen slightly cwxs=379) hemolyzed GLUCOSE RANDOM (BEAKER) 144 mg/dL 70-105 (test mvsw=874) CALCIUM (BEAKER) (test 9.1 mg/dL 8.4-10.2 wbuf=257) EGFR (BEAKER) (test 45 mL/min/1.73 sq m ESTIMATED GFR IS NOT hfxf=9516) ACCURATE CREATININE CLEARANCE IN PREDICTING GLOMERULAR FILTRATION RATE. ESTIMATED GFR IS NOT APPLICABLE FOR DIALYSIS PATIENTS. [id number] 03:49:00 Test Item Value Reference Range Comments PARTIAL THROMBOPLASTIN TIME (BEAKER) (test 42.0 seconds 22.5-36.0 crfv=888) PROTHROMBIN TIME/[id number] 03:48:00 Test Item Value Reference Range Comments PROTIME (BEAKER) (test vbtv=796) 14.1 seconds 11.7-14.7 INR (BEAKER) (test zgxc=883) 1.1 <=5.9 RECOMMENDED COUMADIN/WARFARIN INR THERAPY RANGESSTANDARD DOSE: 2.0 - 3.0 Includes: PROPHYLAXIS forvenous thrombosis, systemic embolization; TREATMENT for venous thrombosis and/or pulmonary embolus.HIGH RISK: Target INR is 2.5-3.5 for patients with mechanical heart valves.CBC (HEMOGRAM ONLY)2018-07-14 03:38:00 Test Item Value Reference Range Comments WHITE BLOOD CELL COUNT (BEAKER) (test oaho=780) 8.1 K/ L 3.5-10.5 RED BLOOD CELL COUNT (BEAKER) (test vttc=535) 2.93 M/ L 3.93-5.22 HEMOGLOBIN (BEAKER) (test scpl=418) 9.0 GM/DL 11.2-15.7 HEMATOCRIT (BEAKER) (test czki=730) 30.6 % 34.1-44.9 MEAN CORPUSCULAR VOLUME (BEAKER) (test sslk=716) 104.4 fL 79.4-94.8 MEAN CORPUSCULAR HEMOGLOBIN (BEAKER) (test 30.7 pg 25.6-32.2 evna=814) MEAN CORPUSCULAR HEMOGLOBIN CONC (BEAKER) (test 29.4 GM/DL 32.2-35.5 vdat=193) RED CELL DISTRIBUTION WIDTH (BEAKER) (test 19.6 % 11.7-14.4 lxlp=891) PLATELET COUNT (BEAKER) (test ncfk=157) 252 K/CU MM 150-450 MEAN PLATELET VOLUME (BEAKER) (test tuvo=450) 9.7 fL 9.4-12.3 NUCLEATED RED BLOOD CELLS (BEAKER) (test 0 /100 WBC 0-0 tekc=486) POCT-GLUCOSE [id number] 21:17:00 Test Item Value Reference Range Comments POC-GLUCOSE METER (BEAKER) 168 mg/dL 70-110 TESTED AT [address] (test nzwy=0530) [place] [id number] POCT-GLUCOSE [id number] 16:32:00 Test Item Value Reference Range Comments POC-GLUCOSE METER (BEAKER) 267 mg/dL 70-110 TESTED AT [address] (test cpmf=3619) [facility] [address] POCT-GLUCOSE [id number] 12:30:00 Test Item Value Reference Range Comments POC-GLUCOSE METER (BEAKER) 213 mg/dL 70-110 TESTED AT [address] (test dajo=3151) [place] [address] RAD, CHEST, 1 VIEW, NON [id number] 09:17:00Reason for exam:->post opShould this be performed [...] MDReport Verified Date/Time: 07/13/2018 09:17:51 Reading Location: [facility] Radiology ReadingRoom 09 :17 AMDIGOXIN [id number] 09:01:00 Test Item Value Reference Range Comments DIGOXIN LEVEL (BEAKER) (test plvd=417) 0.8 ng/mL 0.8-2.0 Draw before next dose of DigoxinPOCT-GLUCOSE [id number] 08:47:00 Test Item Value Reference Range Comments POC-GLUCOSE METER (BEAKER) 240 mg/dL 70-110 TESTED AT [facility] [address] [place] [address] (test sbld=1191) [facility] [address] [id number] 04:08:00 Test Item Value Reference Range Comments PHOSPHORUS (BEAKER) (test xsrw=778) 3.5 mg/dL 2.3-4.7 [id number] 04:08:00 Test Item Value Reference Range Comments MAGNESIUM (BEAKER) (test filq=531) 2.1 mg/dL 1.6-2.6 BASIC METABOLIC [id number] 04:08:00 Test Item Value Reference Range Comments SODIUM (BEAKER) (test 140 meq/L 136-145 iyow=828) POTASSIUM (BEAKER) (test 4.8 meq/L 3.5-5.1 lzkr=510) CHLORIDE (BEAKER) (test 105 meq/L 98-107 ilwv=493) CO2 (BEAKER) (test 28 meq/L 22-29 nscz=670) BLOOD UREA NITROGEN 21 mg/dL 7-21 (BEAKER) (test nrzr=036) CREATININE (BEAKER) (test 1.33 mg/dL 0.57-1.25 mhec=382) GLUCOSE RANDOM (BEAKER) 123 mg/dL 70-105 (test dxef=007) CALCIUM (BEAKER) (test 8.8 mg/dL 8.4-10.2 eaes=553) EGFR (BEAKER) (test 48 mL/min/1.73 sq m ESTIMATED GFR IS NOT mksw=1251) ACCURATE CREATININE CLEARANCE IN PREDICTING GLOMERULAR FILTRATION RATE. ESTIMATED GFR IS NOT APPLICABLE FOR DIALYSIS PATIENTS. [id number] 03:51:00 Test Item Value Reference Range Comments PARTIAL THROMBOPLASTIN TIME (BEAKER) (test 43.3 seconds 22.5-36.0 mklk=019) PROTHROMBIN TIME/[id number] 03:50:00 Test Item Value Reference Range Comments PROTIME (BEAKER) (test mthw=063) 13.7 seconds 11.7-14.7 INR (BEAKER) (test khjh=279) 1.0 <=5.9 RECOMMENDED COUMADIN/WARFARIN INR THERAPY RANGESSTANDARD DOSE: 2.0 - 3.0 Includes: PROPHYLAXIS forvenous thrombosis, systemic embolization; TREATMENT for venous thrombosis and/or pulmonary embolus.HIGH RISK: Target INR is 2.5-3.5 for patients with mechanical heart valves.CBC (HEMOGRAM ONLY)2018-07-13 03:24:00 Test Item Value Reference Range Comments WHITE BLOOD CELL COUNT (BEAKER) (test afuv=154) 7.5 K/ L 3.5-10.5 RED BLOOD CELL COUNT (BEAKER) (test xnwg=279) 2.94 M/ L 3.93-5.22 HEMOGLOBIN (BEAKER) (test ulbm=353) 9.1 GM/DL 11.2-15.7 HEMATOCRIT (BEAKER) (test dyui=325) 30.9 % 34.1-44.9 MEAN CORPUSCULAR VOLUME (BEAKER) (test ogwz=201) 105.1 fL 79.4-94.8 MEAN CORPUSCULAR HEMOGLOBIN (BEAKER) (test 31.0 pg 25.6-32.2 tdof=697) MEAN CORPUSCULAR HEMOGLOBIN CONC (BEAKER) (test 29.4 GM/DL 32.2-35.5 svxr=378) RED CELL DISTRIBUTION WIDTH (BEAKER) (test 19.8 % 11.7-14.4 tzfi=910) PLATELET COUNT (BEAKER) (test wmhj=542) 259 K/CU MM 150-450 MEAN PLATELET VOLUME (BEAKER) (test tfbo=730) 9.7 fL 9.4-12.3 NUCLEATED RED BLOOD CELLS (BEAKER) (test 0 /100 WBC 0-0 xela=656) POCT-GLUCOSE [id number] 22:41:00 Test Item Value Reference Range Comments POC-GLUCOSE METER (BEAKER) 230 mg/dL 70-110 TESTED AT [address] (test qnpy=4834) [place] [id number] POCT-GLUCOSE [id number] 18:56:00 Test Item Value Reference Range Comments POC-GLUCOSE METER (BEAKER) 98 mg/dL 70-110 TESTED AT [address] (test izef=9233) [place] [address] POCT-GLUCOSE [id number] 12:04:00 Test Item Value Reference Range Comments POC-GLUCOSE METER (BEAKER) 169 mg/dL 70-110 TESTED AT [address] (test fjwy=0718) [place] [address] POCT-GLUCOSE [id number] 09:50:00 Test Item Value Reference Range Comments POC-GLUCOSE METER (BEAKER) 260 mg/dL 70-110 TESTED AT [address] (test lsoq=2321) [place] [address] RAD, CHEST, 1 VIEW, NON [id number] 07:18:00Reason for exam:->post opShould this be performed at the bedside?->YesFINAL REPORT AP chest HISTORY: Postoperative. COMPARISON: 07/11/2018. IMPRESSION: Central line unchanged. Cardiomegaly. Thoracic aortic stent graft. Coarse interstitial markings similar to previous. Question developing right basilar atelectasis. No pneumothorax. Signed: Mitchel Jarquin MDReport Verified Date/ Time: 07/12/2018 07:18:25 Reading Location: [facility] Radiology Reading Room 07: 18 AMPOCT-GLUCOSE [id number] 06:54:00 Test Item Value Reference Range Comments POC-GLUCOSE METER (BEAKER) 193 mg/dL 70-110 TESTED AT [address] (test hxxy=4857) [place] [address] [id number] 04:51:00 Test Item Value Reference Range Comments PARTIAL THROMBOPLASTIN TIME (BEAKER) (test 42.6 seconds 22.5-36.0 wvpa=998) PROTHROMBIN TIME/[id number] 04:42:00 Test Item Value Reference Range Comments PROTIME (BEAKER) (test olgt=137) 13.7 seconds 11.7-14.7 INR (BEAKER) (test kvwv=976) 1.0 <=5.9 RECOMMENDED COUMADIN/WARFARIN INR THERAPY RANGESSTANDARD DOSE: 2.0 - 3.0 Includes: PROPHYLAXIS forvenous thrombosis, systemic embolization; TREATMENT for venous thrombosis and/or pulmonary embolus.HIGH RISK: Target INR is 2.5-3.5 for patients with mechanical heart valves.[id number] 04:31:00 Test Item Value Reference Range Comments PHOSPHORUS (BEAKER) (test yccx=571) 2.4 mg/dL 2.3-4.7 [id number] 04:31:00 Test Item Value Reference Range Comments MAGNESIUM (BEAKER) (test xatc=101) 2.3 mg/dL 1.6-2.6 BASIC METABOLIC [id number] 04:31:00 Test Item Value Reference Range Comments SODIUM (BEAKER) (test 141 meq/L 136-145 djjc=044) POTASSIUM (BEAKER) (test 4.5 meq/L 3.5-5.1 ihti=062) CHLORIDE (BEAKER) (test 106 meq/L 98-107 cswt=267) CO2 (BEAKER) (test 31 meq/L 22-29 hqae=879) BLOOD UREA NITROGEN 26 mg/dL 7-21 (BEAKER) (test adqe=839) CREATININE (BEAKER) (test 1.41 mg/dL 0.57-1.25 pnmt=919) GLUCOSE RANDOM (BEAKER) 63 mg/dL 70-105 (test ougt=453) CALCIUM (BEAKER) (test 8.7 mg/dL 8.4-10.2 enlf=610) EGFR (BEAKER) (test 45 mL/min/1.73 sq m ESTIMATED GFR IS NOT kwro=9351) ACCURATE CREATININE CLEARANCE IN PREDICTING GLOMERULAR FILTRATION RATE. ESTIMATED GFR IS NOT APPLICABLE FOR DIALYSIS PATIENTS. CBC (HEMOGRAM ONLY)2018-07-12 04:23:00 Test Item Value Reference Range Comments WHITE BLOOD CELL COUNT (BEAKER) (test befe=972) 7.0 K/ L 3.5-10.5 RED BLOOD CELL COUNT (BEAKER) (test vszu=132) 2.79 M/ L 3.93-5.22 HEMOGLOBIN (BEAKER) (test xpta=947) 8.6 GM/DL 11.2-15.7 HEMATOCRIT (BEAKER) (test syjd=280) 28.3 % 34.1-44.9 MEAN CORPUSCULAR VOLUME (BEAKER) (test ahfg=729) 101.4 fL 79.4-94.8 MEAN CORPUSCULAR HEMOGLOBIN (BEAKER) (test 30.8 pg 25.6-32.2 zgss=633) MEAN CORPUSCULAR HEMOGLOBIN CONC (BEAKER) (test 30.4 GM/DL 32.2-35.5 zfwe=855) RED CELL DISTRIBUTION WIDTH (BEAKER) (test 20.2 % 11.7-14.4 jmcj=322) PLATELET COUNT (BEAKER) (test uxhn=583) 276 K/CU MM 150-450 MEAN PLATELET VOLUME (BEAKER) (test kugz=758) 10.3 fL 9.4-12.3 NUCLEATED RED BLOOD CELLS (BEAKER) (test 0 /100 WBC 0-0 slat=951) POCT-GLUCOSE [id number] 00:19:00 Test Item Value Reference Range Comments POC-GLUCOSE METER (BEAKER) 404 mg/dL 70-110 TESTED AT [address] (test lqhe=1222) [facility] [address] POCT-GLUCOSE [id number] 18:10:00 Test Item Value Reference Range Comments POC-GLUCOSE METER (BEAKER) 268 mg/dL 70-110 TESTED AT [address] (test yjcd=2101) [facility] [address] POCT-GLUCOSE [id number] 12:22:00 Test Item Value Reference Range Comments POC-GLUCOSE METER (BEAKER) 221 mg/dL 70-110 TESTED AT [address] (test wlgi=4696) [facility] [address] RAD, CHEST, 1 VIEW, NON [id number] 07:27:00Reason for exam:->post opShould this be performed [...] MDReport Verified Date/Time: 2018 07:27:41 Reading Location: [facility] Radiology Reading Room POCT- GLUCOSE [id number] 05:28:00 Test Item Value Reference Range Comments POC-GLUCOSE METER (BEAKER) 166 mg/dL 70-110 TESTED AT [facility] [address] [facility] (test bohz=1632) [facility] [address] [id number] 04:08:00 Test Item Value Reference Range Comments PHOSPHORUS (BEAKER) (test tktc=094) 3.0 mg/dL 2.3-4.7 [id number] 04:08:00 Test Item Value Reference Range Comments MAGNESIUM (BEAKER) (test ttui=093) 1.8 mg/dL 1.6-2.6 BASIC METABOLIC [id number] 04:08:00 Test Item Value Reference Range Comments SODIUM (BEAKER) (test 138 meq/L 136-145 lfhw=764) POTASSIUM (BEAKER) (test 4.6 meq/L 3.5-5.1 lncl=482) CHLORIDE (BEAKER) (test 102 meq/L 98-107 biyp=560) CO2 (BEAKER) (test 29 meq/L 22-29 wbts=384) BLOOD UREA NITROGEN 28 mg/dL 7-21 (BEAKER) (test fxvm=358) CREATININE (BEAKER) (test 1.64 mg/dL 0.57-1.25 qdiq=969) GLUCOSE RANDOM (BEAKER) 196 mg/dL 70-105 (test yaqb=927) CALCIUM (BEAKER) (test 8.8 mg/dL 8.4-10.2 hpsd=766) EGFR (BEAKER) (test 37 mL/min/1.73 sq m ESTIMATED GFR IS NOT mhma=5669) ACCURATE CREATININE CLEARANCE IN PREDICTING GLOMERULAR FILTRATION RATE. ESTIMATED GFR IS NOT APPLICABLE FOR DIALYSIS PATIENTS. [id number] 04:06:00 Test Item Value Reference Range Comments PARTIAL THROMBOPLASTIN TIME (BEAKER) (test 51.7 seconds 22.5-36.0 noii=793) PROTHROMBIN TIME/[id number] 04:05:00 Test Item Value Reference Range Comments PROTIME (BEAKER) (test tmlb=961) 14.1 seconds 11.7-14.7 INR (BEAKER) (test iaxb=402) 1.1 <=5.9 RECOMMENDED COUMADIN/WARFARIN INR THERAPY RANGESSTANDARD DOSE: 2.0 - 3.0 Includes: PROPHYLAXIS forvenous thrombosis, systemic embolization; TREATMENT for venous thrombosis and/or pulmonary embolus.HIGH RISK: Target INR is 2.5-3.5 for patients with mechanical heart valves.CBC (HEMOGRAM ONLY)2018-07-11 03:53:00 Test Item Value Reference Range Comments WHITE BLOOD CELL COUNT (BEAKER) (test msgy=468) 6.3 K/ L 3.5-10.5 RED BLOOD CELL COUNT (BEAKER) (test dxsw=589) 2.90 M/ L 3.93-5.22 HEMOGLOBIN (BEAKER) (test ccat=978) 8.8 GM/DL 11.2-15.7 HEMATOCRIT (BEAKER) (test puby=792) 29.7 % 34.1-44.9 MEAN CORPUSCULAR VOLUME (BEAKER) (test hpwx=801) 102.4 fL 79.4-94.8 MEAN CORPUSCULAR HEMOGLOBIN (BEAKER) (test 30.3 pg 25.6-32.2 vdsf=090) MEAN CORPUSCULAR HEMOGLOBIN CONC (BEAKER) (test 29.6 GM/DL 32.2-35.5 uyqj=540) RED CELL DISTRIBUTION WIDTH (BEAKER) (test 21.0 % 11.7-14.4 pljb=670) PLATELET COUNT (BEAKER) (test bijz=688) 270 K/CU MM 150-450 MEAN PLATELET VOLUME (BEAKER) (test aahl=520) 10.1 fL 9.4-12.3 NUCLEATED RED BLOOD CELLS (BEAKER) (test 0 /100 WBC 0-0 xzsm=242) POCT-GLUCOSE [id number] 00:38:00 Test Item Value Reference Range Comments POC-GLUCOSE METER (BEAKER) 198 mg/dL 70-110 TESTED AT [address] (test dcjn=9996) [place] [id number] POCT-GLUCOSE [id number] 18:42:00 Test Item Value Reference Range Comments POC-GLUCOSE METER (BEAKER) 240 mg/dL 70-110 TESTED AT [address] (test ukpn=2287) [place] [id number] POCT-GLUCOSE [id number] 12:48:00 Test Item Value Reference Range Comments POC-GLUCOSE METER (BEAKER) 248 mg/dL 70-110 TESTED AT [address] (test mndy=1877) [place] [address] RAD, CHEST, 1 VIEW, NON [id number] 08:53:00Reason for exam:->post opShould this be performed [...] Mckeon Verified Date/Time: 07/10/2018 08:53:53 Reading Location: [address] Reading Room POCT-GLUCOSE [id number] 06:33:00 Test Item Value Reference Range Comments POC-GLUCOSE METER (BEAKER) 129 mg/dL 70-110 TESTED AT [address] (test jbnd=5161) [place] [id number] POCT-GLUCOSE [id number] 05:36:00 Test Item Value Reference Range Comments POC-GLUCOSE METER (BEAKER) 55 mg/dL 70-110 TESTED AT [address] (test tifk=8046) [place] [address] [id number] 04:15:00 Test Item Value Reference Range Comments PHOSPHORUS (BEAKER) (test upzo=768) 3.0 mg/dL 2.3-4.7 [id number] 04:15:00 Test Item Value Reference Range Comments MAGNESIUM (BEAKER) (test ydku=760) 2.0 mg/dL 1.6-2.6 BASIC METABOLIC [id number] 04:15:00 Test Item Value Reference Range Comments SODIUM (BEAKER) (test 138 meq/L 136-145 kuso=798) POTASSIUM (BEAKER) (test 4.5 meq/L 3.5-5.1 jrks=921) CHLORIDE (BEAKER) (test 103 meq/L 98-107 vqve=908) CO2 (BEAKER) (test 27 meq/L 22-29 chqo=744) BLOOD UREA NITROGEN 32 mg/dL 7-21 (BEAKER) (test hzzu=639) CREATININE (BEAKER) (test 1.55 mg/dL 0.57-1.25 awcj=792) GLUCOSE RANDOM (BEAKER) 121 mg/dL 70-105 (test etum=486) CALCIUM (BEAKER) (test 8.8 mg/dL 8.4-10.2 hnom=792) EGFR (BEAKER) (test 40 mL/min/1.73 sq m ESTIMATED GFR IS NOT nowi=0487) ACCURATE CREATININE CLEARANCE IN PREDICTING GLOMERULAR FILTRATION RATE. ESTIMATED GFR IS NOT APPLICABLE FOR DIALYSIS PATIENTS. [id number] 03:41:00 Test Item Value Reference Range Comments PARTIAL THROMBOPLASTIN TIME (BEAKER) (test 50.1 seconds 22.5-36.0 cxnd=424) PROTHROMBIN TIME/[id number] 03:40:00 Test Item Value Reference Range Comments PROTIME (BEAKER) (test iofe=216) 14.6 seconds 11.7-14.7 INR (BEAKER) (test dcir=889) 1.1 <=5.9 RECOMMENDED COUMADIN/WARFARIN INR THERAPY RANGESSTANDARD DOSE: 2.0 - 3.0 Includes: PROPHYLAXIS forvenous thrombosis, systemic embolization; TREATMENT for venous thrombosis and/or pulmonary embolus.HIGH RISK: Target INR is 2.5-3.5 for patients with mechanical heart valves.CBC (HEMOGRAM ONLY)2018-07-10 03:38:00 Test Item Value Reference Range Comments WHITE BLOOD CELL COUNT (BEAKER) (test wqwm=135) 6.3 K/ L 3.5-10.5 RED BLOOD CELL COUNT (BEAKER) (test hkpz=076) 2.47 M/ L 3.93-5.22 HEMOGLOBIN (BEAKER) (test dxmx=532) 7.6 GM/DL 11.2-15.7 HEMATOCRIT (BEAKER) (test uwpj=326) 26.0 % 34.1-44.9 MEAN CORPUSCULAR VOLUME (BEAKER) (test ypcq=694) 105.3 fL 79.4-94.8 MEAN CORPUSCULAR HEMOGLOBIN (BEAKER) (test 30.8 pg 25.6-32.2 flrm=847) MEAN CORPUSCULAR HEMOGLOBIN CONC (BEAKER) (test 29.2 GM/DL 32.2-35.5 mtff=660) RED CELL DISTRIBUTION WIDTH (BEAKER) (test 17.1 % 11.7-14.4 tgzq=937) PLATELET COUNT (BEAKER) (test bbxq=307) 301 K/CU MM 150-450 MEAN PLATELET VOLUME (BEAKER) (test txcs=783) 10.0 fL 9.4-12.3 NUCLEATED RED BLOOD CELLS (BEAKER) (test 0 /100 WBC 0-0 hfpw=826) POCT-GLUCOSE [id number] 00:03:00 Test Item Value Reference Range Comments POC-GLUCOSE METER (BEAKER) 317 mg/dL 70-110 Notified PAULA [place]/TESTED AT [facility] (test sing=4063) [address] [place], [place] [id number] POCT-GLUCOSE [id number] 17:44:00 Test Item Value Reference Range Comments POC-GLUCOSE METER (BEAKER) 129 mg/dL 70-110 TESTED AT [address] (test zlmk=5383) [place] [id number] POCT-GLUCOSE [id number] 12:13:00 Test Item Value Reference Range Comments POC-GLUCOSE METER (BEAKER) 283 mg/dL 70-110 TESTED AT [address] (test isqz=7107) [place] [id number] RAD, CHEST, 1 VIEW, NON [id number] 07:35:00Reason for exam:->post opShould this be performed [...] MDReport Verified Date/Time: 07/09/2018 07:35:48 Reading Location: [facility] B1 C013Y CT Body Reading Room POCT-GLUCOSE [id number] 05:13:00 Test Item Value Reference Range Comments POC-GLUCOSE METER (BEAKER) 186 mg/dL 70-110 TESTED AT [facility] [address] [facility] (test imzo=1527) [facility] [address] [id number] 04:51:00 Test Item Value Reference Range Comments PHOSPHORUS (BEAKER) (test dpyy=935) 3.8 mg/dL 2.3-4.7 [id number] 04:51:00 Test Item Value Reference Range Comments MAGNESIUM (BEAKER) (test lrfd=807) 2.1 mg/dL 1.6-2.6 BASIC METABOLIC [id number] 04:51:00 Test Item Value Reference Range Comments SODIUM (BEAKER) (test 138 meq/L 136-145 wxdt=197) POTASSIUM (BEAKER) (test 4.9 meq/L 3.5-5.1 debl=982) CHLORIDE (BEAKER) (test 103 meq/L 98-107 wzuj=432) CO2 (BEAKER) (test 29 meq/L 22-29 eaxo=366) BLOOD UREA NITROGEN 33 mg/dL 7-21 (BEAKER) (test tlwf=133) CREATININE (BEAKER) (test 1.78 mg/dL 0.57-1.25 qdam=177) GLUCOSE RANDOM (BEAKER) 155 mg/dL 70-105 (test ygma=775) CALCIUM (BEAKER) (test 9.0 mg/dL 8.4-10.2 qfbw=070) EGFR (BEAKER) (test 34 mL/min/1.73 sq m ESTIMATED GFR IS NOT yydi=5503) ACCURATE CREATININE CLEARANCE IN PREDICTING GLOMERULAR FILTRATION RATE. ESTIMATED GFR IS NOT APPLICABLE FOR DIALYSIS PATIENTS. [id number] 04:30:00 Test Item Value Reference Range Comments PARTIAL THROMBOPLASTIN TIME (BEAKER) (test 63.2 seconds 22.5-36.0 tvrl=036) PROTHROMBIN [id number] 04:29:00 Test Item Value Reference Range Comments PROTIME (BEAKER) (test xybp=569) 14.6 seconds 11.7-14.7 INR (BEAKER) (test vyog=133) 1.1 <=5.9 RECOMMENDED COUMADIN/WARFARIN INR THERAPY RANGESSTANDARD DOSE: 2.0 - 3.0 Includes: PROPHYLAXIS forvenous thrombosis, systemic embolization; TREATMENT for venous thrombosis and/or pulmonary embolus.HIGH RISK: Target INR is 2.5-3.5 for patients with mechanical heart valves.CBC (HEMOGRAM ONLY)2018-07-09 04:18:00 Test Item Value Reference Range Comments WHITE BLOOD CELL COUNT (BEAKER) (test wors=955) 6.8 K/ L 3.5-10.5 RED BLOOD CELL COUNT (BEAKER) (test tawe=168) 2.73 M/ L 3.93-5.22 HEMOGLOBIN (BEAKER) (test tuvz=419) 8.4 GM/DL 11.2-15.7 HEMATOCRIT (BEAKER) (test swfy=675) 28.7 % 34.1-44.9 MEAN CORPUSCULAR VOLUME (BEAKER) (test ppra=222) 105.1 fL 79.4-94.8 MEAN CORPUSCULAR HEMOGLOBIN (BEAKER) (test 30.8 pg 25.6-32.2 oqjt=388) MEAN CORPUSCULAR HEMOGLOBIN CONC (BEAKER) (test 29.3 GM/DL 32.2-35.5 oupf=629) RED CELL DISTRIBUTION WIDTH (BEAKER) (test 17.2 % 11.7-14.4 jzvh=441) PLATELET COUNT (BEAKER) (test iiwp=837) 263 K/CU MM 150-450 MEAN PLATELET VOLUME (BEAKER) (test qxtb=429) 9.9 fL 9.4-12.3 NUCLEATED RED BLOOD CELLS (BEAKER) (test 0 /100 WBC 0-0 ejos=835) POCT-GLUCOSE [id number] 23:27:00 Test Item Value Reference Range Comments POC-GLUCOSE METER (BEAKER) 141 mg/dL 70-110 TESTED AT [facility] [address] [facility] (test oyxl=6212) [facility] [address] POCT-GLUCOSE [id number] 19:30:00 Test Item Value Reference Range Comments POC-GLUCOSE METER (BEAKER) 234 mg/dL 70-110 TESTED AT [address] (test tafu=9556) [facility] [address] POCT-GLUCOSE [id number] 11:55:00 Test Item Value Reference Range Comments POC-GLUCOSE METER (BEAKER) 317 mg/dL 70-110 TESTED AT [address] (test xqec=8684) [facility] [address] [id number] 05:14:00 Test Item Value Reference Range Comments PHOSPHORUS (BEAKER) (test vlwc=462) 3.8 mg/dL 2.3-4.7 [id number] 05:14:00 Test Item Value Reference Range Comments MAGNESIUM (BEAKER) (test thaa=133) 2.1 mg/dL 1.6-2.6 BASIC METABOLIC [id number] 05:14:00 Test Item Value Reference Range Comments SODIUM (BEAKER) (test 137 meq/L 136-145 rekv=977) POTASSIUM (BEAKER) (test 4.6 meq/L 3.5-5.1 ratr=659) CHLORIDE (BEAKER) (test 103 meq/L 98-107 ofpb=684) CO2 (BEAKER) (test 26 meq/L 22-29 lfxy=270) BLOOD UREA NITROGEN 31 mg/dL 7-21 (BEAKER) (test uohq=309) CREATININE (BEAKER) (test 1.63 mg/dL 0.57-1.25 ydtn=270) GLUCOSE RANDOM (BEAKER) 244 mg/dL 70-105 (test izhe=964) CALCIUM (BEAKER) (test 9.2 mg/dL 8.4-10.2 tnzb=097) EGFR (BEAKER) (test 38 mL/min/1.73 sq m ESTIMATED GFR IS NOT jeog=4792) ACCURATE CREATININE CLEARANCE IN PREDICTING GLOMERULAR FILTRATION RATE. ESTIMATED GFR IS NOT APPLICABLE FOR DIALYSIS PATIENTS. RAD, CHEST, 1 VIEW, NON [id number] 04:48:00Reason for exam:->post opShould this be performed [...] Verified Date/Time: 07/08/2018 04:48:56 Reading Location : [address] Reading Room Electronicallysigned by: NAVI GARCIA M.D. on 07/08/2018 04:48 [id number] 04:24:00 Test Item Value Reference Range Comments PARTIAL THROMBOPLASTIN TIME (BEAKER) (test 54.7 seconds 22.5-36.0 ovxx=964) PROTHROMBIN TIME/[id number] 04:23:00 Test Item Value Reference Range Comments PROTIME (BEAKER) (test gjvw=049) 14.8 seconds 11.7-14.7 INR (BEAKER) (test byjj=187) 1.2 <=5.9 RECOMMENDED COUMADIN/WARFARIN INR THERAPY RANGESSTANDARD DOSE: 2.0 - 3.0 Includes: PROPHYLAXIS forvenous thrombosis, systemic embolization; TREATMENT for venous thrombosis and/or pulmonary embolus.HIGH RISK: Target INR is 2.5-3.5 for patients with mechanical heart valves.CBC (HEMOGRAM ONLY)2018-07-08 04:02:00 Test Item Value Reference Range Comments WHITE BLOOD CELL COUNT (BEAKER) (test hytr=047) 6.7 K/ L 3.5-10.5 RED BLOOD CELL COUNT (BEAKER) (test ihqk=237) 2.79 M/ L 3.93-5.22 HEMOGLOBIN (BEAKER) (test yovd=948) 8.6 GM/DL 11.2-15.7 HEMATOCRIT (BEAKER) (test zzwr=919) 29.0 % 34.1-44.9 MEAN CORPUSCULAR VOLUME (BEAKER) (test spda=293) 103.9 fL 79.4-94.8 MEAN CORPUSCULAR HEMOGLOBIN (BEAKER) (test 30.8 pg 25.6-32.2 toir=177) MEAN CORPUSCULAR HEMOGLOBIN CONC (BEAKER) (test 29.7 GM/DL 32.2-35.5 ifgz=512) RED CELL DISTRIBUTION WIDTH (BEAKER) (test 17.2 % 11.7-14.4 ibjy=708) PLATELET COUNT (BEAKER) (test diqb=971) 295 K/CU MM 150-450 MEAN PLATELET VOLUME (BEAKER) (test crag=197) 10.2 fL 9.4-12.3 NUCLEATED RED BLOOD CELLS (BEAKER) (test 0 /100 WBC 0-0 oybp=778) RAD, CHEST, 1 VIEW, NON [id number] 08:41:00Reason for exam:->post opShould this be performed [...] MDReport Verified Date/Time: 07/07/2018 08:41:39 Reading Location: [facility] Radiology Reading Room [id number] 05:37:00 Test Item Value Reference Range Comments PHOSPHORUS (BEAKER) (test ntip=939) 3.0 mg/dL 2.3-4.7 [id number] 05:37:00 Test Item Value Reference Range Comments MAGNESIUM (BEAKER) (test rihp=600) 2.1 mg/dL 1.6-2.6 BASIC METABOLIC [id number] 05:37:00 Test Item Value Reference Range Comments SODIUM (BEAKER) (test 137 meq/L 136-145 bpgs=549) POTASSIUM (BEAKER) (test 4.6 meq/L 3.5-5.1 qhsh=342) CHLORIDE (BEAKER) (test 102 meq/L 98-107 rsfi=990) CO2 (BEAKER) (test 25 meq/L 22-29 xvmh=323) BLOOD UREA NITROGEN 27 mg/dL 7-21 (BEAKER) (test ypfy=660) CREATININE (BEAKER) (test 1.44 mg/dL 0.57-1.25 cuqo=948) GLUCOSE RANDOM (BEAKER) 191 mg/dL 70-105 (test vnqg=329) CALCIUM (BEAKER) (test 9.2 mg/dL 8.4-10.2 pvac=988) EGFR (BEAKER) (test 43 mL/min/1.73 sq m ESTIMATED GFR IS NOT iwkx=6743) ACCURATE CREATININE CLEARANCE IN PREDICTING GLOMERULAR FILTRATION RATE. ESTIMATED GFR IS NOT APPLICABLE FOR DIALYSIS PATIENTS. [id number] 05:12:00 Test Item Value Reference Range Comments PARTIAL THROMBOPLASTIN TIME (BEAKER) (test 42.9 seconds 22.5-36.0 wzlh=034) PROTHROMBIN [id number] 05:11:00 Test Item Value Reference Range Comments PROTIME (BEAKER) (test mgzd=744) 14.1 seconds 11.7-14.7 INR (BEAKER) (test udpt=063) 1.1 <=5.9 RECOMMENDED COUMADIN/WARFARIN INR THERAPY RANGESSTANDARD DOSE: 2.0 - 3.0 Includes: PROPHYLAXIS forvenous thrombosis, systemic embolization; TREATMENT for venous thrombosis and/or pulmonary embolus.HIGH RISK: Target INR is 2.5-3.5 for patients with mechanical heart valves.CBC (HEMOGRAM ONLY)2018-07-07 05:01:00 Test Item Value Reference Range Comments WHITE BLOOD CELL COUNT (BEAKER) (test xudy=688) 6.9 K/ L 3.5-10.5 RED BLOOD CELL COUNT (BEAKER) (test shdt=642) 2.84 M/ L 3.93-5.22 HEMOGLOBIN (BEAKER) (test kasw=917) 8.8 GM/DL 11.2-15.7 HEMATOCRIT (BEAKER) (test ecdo=116) 29.2 % 34.1-44.9 MEAN CORPUSCULAR VOLUME (BEAKER) (test drkp=150) 102.8 fL 79.4-94.8 MEAN CORPUSCULAR HEMOGLOBIN (BEAKER) (test 31.0 pg 25.6-32.2 weyy=099) MEAN CORPUSCULAR HEMOGLOBIN CONC (BEAKER) (test 30.1 GM/DL 32.2-35.5 avoo=453) RED CELL DISTRIBUTION WIDTH (BEAKER) (test 17.0 % 11.7-14.4 upry=481) PLATELET COUNT (BEAKER) (test cqef=582) 270 K/CU MM 150-450 MEAN PLATELET VOLUME (BEAKER) (test innw=357) 10.2 fL 9.4-12.3 NUCLEATED RED BLOOD CELLS (BEAKER) (test 0 /100 WBC 0-0 fnrz=865) RAD, CHEST, 1 VIEW, NON [id number] 17:48:00Reason for exam:->Confirm PICC line placementShould this [...] or definite pleural effusion. Signed: [facility] Verified Date/Time: 07/06/2018 17:48:54 Reading Location: [facility] [id number] Consult Reading Room Electronically signed by: GEO RICO M.D. on 2018 05:48 [id number] 17:23:00 Test Item Value Reference Range Comments MAGNESIUM (BEAKER) (test nkuw=071) 2.2 mg/dL 1.6-2.6 BASIC METABOLIC [id number] 17:23:00 Test Item Value Reference Range Comments SODIUM (BEAKER) (test 137 meq/L 136-145 mwvi=356) POTASSIUM (BEAKER) (test 4.9 meq/L 3.5-5.1 iost=283) CHLORIDE (BEAKER) (test 103 meq/L 98-107 iqrl=272) CO2 (BEAKER) (test 25 meq/L 22-29 aawt=046) BLOOD UREA NITROGEN 25 mg/dL 7-21 (BEAKER) (test wabb=723) CREATININE (BEAKER) (test 1.41 mg/dL 0.57-1.25 utdy=410) GLUCOSE RANDOM (BEAKER) 219 mg/dL 70-105 (test idcq=268) CALCIUM (BEAKER) (test 9.0 mg/dL 8.4-10.2 jphp=325) EGFR (BEAKER) (test 45 mL/min/1.73 sq m ESTIMATED GFR IS NOT qvwk=0236) ACCURATE CREATININE CLEARANCE IN PREDICTING GLOMERULAR FILTRATION RATE. ESTIMATED GFR IS NOT APPLICABLE FOR DIALYSIS PATIENTS. BLOOD GAS, [id number] 16:33:00 Test Item Value Reference Range Comments PH ARTERIAL (BEAKER) (test gxvm=708) 7.46 7.35-7.45 PCO2 ARTERIAL (BEAKER) (test wprz=949) 42 mmHg 35-45 PO2 ARTERIAL (BEAKER) (test ranv=690) 63 mmHg 80-90 O2 SATURATION ARTERIAL (BEAKER) (test yxpo=516) 93.1 % 96.0-97.0 HCO3 ARTERIAL (BEAKER) (test pdyb=588) 29 mmol/L 21-29 BASE EXCESS ARTERIAL (BEAKER) (test hkjb=656) 4.4 mmol/L -2.0-3.0 PATIENT TEMPERATURE (BEAKER) (test qiyh=0174) 37.0 C FIO2 (BEAKER) (test aduo=7884) 32.0 % RAD, CHEST, 1 VIEW, NON [id number] 13:22:00Reason for exam:->post opShould this be performed at the bedside?->YesFINAL REPORT Chest one view. Clinical history: post op Comparison: 07/05/2018 Discussion: A frontal chest is provided. Cardiomediastinal contours are unchanged. A left IJ line is in stable position. There is mild pulmonary edema. No new consolidation. No pneumothorax. Small bilateral pleural effusions are present. Signed: Morgan Chengeport Verified Date/Time: 07/06/2018 13:22:02 Reading Location: [facility] [id number] Consult Reading Room [id number] 04:30:00 Test Item Value Reference Range Comments PHOSPHORUS (BEAKER) (test onbq=770) 3.2 mg/dL 2.3-4.7 [id number] 04:30:00 Test Item Value Reference Range Comments MAGNESIUM (BEAKER) (test sbsx=978) 2.2 mg/dL 1.6-2.6 BASIC METABOLIC [id number] 04:30:00 Test Item Value Reference Range Comments SODIUM (BEAKER) (test 138 meq/L 136-145 fckp=573) POTASSIUM (BEAKER) (test 4.4 meq/L 3.5-5.1 pouq=485) CHLORIDE (BEAKER) (test 104 meq/L 98-107 bzbh=099) CO2 (BEAKER) (test 28 meq/L 22-29 kraj=546) BLOOD UREA NITROGEN 25 mg/dL 7-21 (BEAKER) (test owzj=907) CREATININE (BEAKER) (test 1.43 mg/dL 0.57-1.25 acso=441) GLUCOSE RANDOM (BEAKER) 207 mg/dL 70-105 (test naiz=111) CALCIUM (BEAKER) (test 8.9 mg/dL 8.4-10.2 oerd=207) EGFR (BEAKER) (test 44 mL/min/1.73 sq m ESTIMATED GFR IS NOT fylh=2316) ACCURATE CREATININE CLEARANCE IN PREDICTING GLOMERULAR FILTRATION RATE. ESTIMATED GFR IS NOT APPLICABLE FOR DIALYSIS PATIENTS. PROTHROMBIN TIME/[id number] 04:06:00 Test Item Value Reference Range Comments PROTIME (BEAKER) (test xvrc=424) 14.6 seconds 11.7-14.7 INR (BEAKER) (test mjpa=810) 1.1 <=5.9 RECOMMENDED COUMADIN/WARFARIN INR THERAPY RANGESSTANDARD DOSE: 2.0 - 3.0 Includes: PROPHYLAXIS forvenous thrombosis, systemic embolization; TREATMENT for venous thrombosis and/or pulmonary embolus.HIGH RISK: Target INR is 2.5-3.5 for patients with mechanical heart valves.[id number] 04:06:00 Test Item Value Reference Range Comments PARTIAL THROMBOPLASTIN TIME (BEAKER) (test 47.8 seconds 22.5-36.0 mgir=082) CBC (HEMOGRAM ONLY)2018-07-06 03:53:00 Test Item Value Reference Range Comments WHITE BLOOD CELL COUNT (BEAKER) (test tujw=357) 7.1 K/ L 3.5-10.5 RED BLOOD CELL COUNT (BEAKER) (test wwkp=830) 2.77 M/ L 3.93-5.22 HEMOGLOBIN (BEAKER) (test dnzh=770) 8.4 GM/DL 11.2-15.7 HEMATOCRIT (BEAKER) (test kvxg=870) 28.6 % 34.1-44.9 MEAN CORPUSCULAR VOLUME (BEAKER) (test lvrl=169) 103.2 fL 79.4-94.8 MEAN CORPUSCULAR HEMOGLOBIN (BEAKER) (test 30.3 pg 25.6-32.2 fcom=098) MEAN CORPUSCULAR HEMOGLOBIN CONC (BEAKER) (test 29.4 GM/DL 32.2-35.5 lzkd=784) RED CELL DISTRIBUTION WIDTH (BEAKER) (test 17.1 % 11.7-14.4 yfro=332) PLATELET COUNT (BEAKER) (test dgbl=411) 267 K/CU MM 150-450 MEAN PLATELET VOLUME (BEAKER) (test fdoq=501) 9.9 fL 9.4-12.3 NUCLEATED RED BLOOD CELLS (BEAKER) (test 0 /100 WBC 0-0 ympr=372) HEPATIC FUNCTION [id number] 17:51:00 Test Item Value Reference Range Comments TOTAL PROTEIN (BEAKER) (test rvfo=529) 6.2 gm/dL 6.0-8.3 ALBUMIN (BEAKER) (test fctd=9386) 3.2 g/dL 3.5-5.0 BILIRUBIN TOTAL (BEAKER) (test zpmt=883) 0.7 mg/dL 0.2-1.2 BILIRUBIN DIRECT (BEAKER) (test guln=152) 0.5 mg/dL 0.1-0.5 ALKALINE PHOSPHATASE (BEAKER) (test eehn=792) 84 U/L 40-150 AST (SGOT) (BEAKER) (test ttxm=618) 16 U/L 5-34 ALT (SGPT) (BEAKER) (test sfbs=064) 9 U/L 6-55 RAD, CHEST, 1 VIEW, NON [id number] 08:39:00Reason for exam:->post opShould this be performed [...] [place] Verified Date/Time: 07/05/2018 08:39:46 Reading Location: [facility] Radiology Reading Room [id number] 04:33:00 Test Item Value Reference Range Comments MAGNESIUM (BEAKER) (test 2.6 mg/dL 1.6-2.6 Specimen slightly hemolyzed uein=762) [id number] 04:33:00 Test Item Value Reference Range Comments PHOSPHORUS (BEAKER) (test 2.9 mg/dL 2.3-4.7 Specimen slightly hemolyzed braa=909) BASIC METABOLIC [id number] 04:33:00 Test Item Value Reference Range Comments SODIUM (BEAKER) (test 139 meq/L 136-145 ltji=123) POTASSIUM (BEAKER) (test 4.5 meq/L 3.5-5.1 Specimen slightly eouu=195) hemolyzed CHLORIDE (BEAKER) (test 105 meq/L 98-107 tuxh=855) CO2 (BEAKER) (test 28 meq/L 22-29 rlay=212) BLOOD UREA NITROGEN 26 mg/dL 7-21 (BEAKER) (test xfmz=896) CREATININE (BEAKER) (test 1.32 mg/dL 0.57-1.25 Specimen slightly gmfq=642) hemolyzed GLUCOSE RANDOM (BEAKER) 111 mg/dL 70-105 (test hfak=325) CALCIUM (BEAKER) (test 8.5 mg/dL 8.4-10.2 trwj=997) EGFR (BEAKER) (test 48 mL/min/1.73 sq m ESTIMATED GFR IS NOT ktxo=3049) ACCURATE CREATININE CLEARANCE IN PREDICTING GLOMERULAR FILTRATION RATE. ESTIMATED GFR IS NOT APPLICABLE FOR DIALYSIS PATIENTS. [id number] 04:23:00 Test Item Value Reference Range Comments PARTIAL THROMBOPLASTIN TIME (BEAKER) (test 49.0 seconds 22.5-36.0 ziar=346) PROTHROMBIN [id number] 04:22:00 Test Item Value Reference Range Comments PROTIME (BEAKER) (test biug=077) 14.3 seconds 11.7-14.7 INR (BEAKER) (test gxas=682) 1.1 <=5.9 RECOMMENDED COUMADIN/WARFARIN INR THERAPY RANGESSTANDARD DOSE: 2.0 - 3.0 Includes: PROPHYLAXIS forvenous thrombosis, systemic embolization; TREATMENT for venous thrombosis and/or pulmonary embolus.HIGH RISK: Target INR is 2.5-3.5 for patients with mechanical heart valves.CBC (HEMOGRAM ONLY)2018-07-05 04:13:00 Test Item Value Reference Range Comments WHITE BLOOD CELL COUNT (BEAKER) (test jcdp=115) 6.6 K/ L 3.5-10.5 RED BLOOD CELL COUNT (BEAKER) (test whpy=230) 2.60 M/ L 3.93-5.22 HEMOGLOBIN (BEAKER) (test vplz=500) 7.9 GM/DL 11.2-15.7 HEMATOCRIT (BEAKER) (test spyj=881) 26.5 % 34.1-44.9 MEAN CORPUSCULAR VOLUME (BEAKER) (test akwd=022) 101.9 fL 79.4-94.8 MEAN CORPUSCULAR HEMOGLOBIN (BEAKER) (test 30.4 pg 25.6-32.2 xsno=077) MEAN CORPUSCULAR HEMOGLOBIN CONC (BEAKER) (test 29.8 GM/DL 32.2-35.5 tmtr=516) RED CELL DISTRIBUTION WIDTH (BEAKER) (test 17.4 % 11.7-14.4 dvch=688) PLATELET COUNT (BEAKER) (test sehz=019) 248 K/CU MM 150-450 MEAN PLATELET VOLUME (BEAKER) (test nmqp=120) 10.4 fL 9.4-12.3 NUCLEATED RED BLOOD CELLS (BEAKER) (test 0 /100 WBC 0-0 szuv=783) POCT-GLUCOSE [id number] 18:22:00 Test Item Value Reference Range Comments POC-GLUCOSE METER (BEAKER) 166 mg/dL 70-110 TESTED AT [facility] [address] (test jriy=9851) [place] [address] RAD, CHEST, 1 VIEW, NON [id number] 08:37:00Reason for exam:->post opShould this be performed [...] Diaz Verified Date/Time: 07/04/2018 08:37:54 Reading Location: [facility] Radiology Reading Room Electronically signed by: VIRGINIA DIAZ M.D. on 2018 08:37 [id number] 04:36:00 Test Item Value Reference Range Comments PARTIAL THROMBOPLASTIN TIME (BEAKER) (test 49.7 seconds 22.5-36.0 wavc=852) PROTHROMBIN TIME/[id number] 04:35:00 Test Item Value Reference Range Comments PROTIME (BEAKER) (test gdkn=944) 15.0 seconds 11.7-14.7 INR (BEAKER) (test wprp=077) 1.2 <=5.9 RECOMMENDED COUMADIN/WARFARIN INR THERAPY RANGESSTANDARD DOSE: 2.0 - 3.0 Includes: PROPHYLAXIS forvenous thrombosis, systemic embolization; TREATMENT for venous thrombosis and/or pulmonary embolus.HIGH RISK: Target INR is 2.5-3.5 for patients with mechanical heart valves.[id number] 04:35:00 Test Item Value Reference Range Comments PHOSPHORUS (BEAKER) (test tfff=670) 2.5 mg/dL 2.3-4.7 [id number] 04:35:00 Test Item Value Reference Range Comments MAGNESIUM (BEAKER) (test cgjy=161) 2.2 mg/dL 1.6-2.6 BASIC METABOLIC [id number] 04:35:00 Test Item Value Reference Range Comments SODIUM (BEAKER) (test 138 meq/L 136-145 mcgu=738) POTASSIUM (BEAKER) (test 3.8 meq/L 3.5-5.1 swpx=554) CHLORIDE (BEAKER) (test 102 meq/L 98-107 vptx=439) CO2 (BEAKER) (test 30 meq/L 22-29 xbjy=901) BLOOD UREA NITROGEN 28 mg/dL 7-21 (BEAKER) (test jzbq=631) CREATININE (BEAKER) (test 1.48 mg/dL 0.57-1.25 ipbd=069) GLUCOSE RANDOM (BEAKER) 175 mg/dL 70-105 (test opnr=045) CALCIUM (BEAKER) (test 8.6 mg/dL 8.4-10.2 oxqn=422) EGFR (BEAKER) (test 42 mL/min/1.73 sq m ESTIMATED GFR IS NOT hemf=2170) ACCURATE CREATININE CLEARANCE IN PREDICTING GLOMERULAR FILTRATION RATE. ESTIMATED GFR IS NOT APPLICABLE FOR DIALYSIS PATIENTS. CBC (HEMOGRAM ONLY)2018-07-04 04:16:00 Test Item Value Reference Range Comments WHITE BLOOD CELL COUNT (BEAKER) (test wbmd=436) 7.4 K/ L 3.5-10.5 RED BLOOD CELL COUNT (BEAKER) (test vyhg=298) 2.76 M/ L 3.93-5.22 HEMOGLOBIN (BEAKER) (test yojf=515) 8.5 GM/DL 11.2-15.7 HEMATOCRIT (BEAKER) (test xysk=127) 28.1 % 34.1-44.9 MEAN CORPUSCULAR VOLUME (BEAKER) (test cckn=306) 101.8 fL 79.4-94.8 MEAN CORPUSCULAR HEMOGLOBIN (BEAKER) (test 30.8 pg 25.6-32.2 mxyd=896) MEAN CORPUSCULAR HEMOGLOBIN CONC (BEAKER) (test 30.2 GM/DL 32.2-35.5 eofe=407) RED CELL DISTRIBUTION WIDTH (BEAKER) (test 17.7 % 11.7-14.4 kfvq=992) PLATELET COUNT (BEAKER) (test tkzr=817) 268 K/CU MM 150-450 MEAN PLATELET VOLUME (BEAKER) (test rrjr=689) 10.2 fL 9.4-12.3 NUCLEATED RED BLOOD CELLS (BEAKER) (test 0 /100 WBC 0-0 erhq=633) [id number] 10:56:00 Test Item Value Reference Range Comments POTASSIUM (BEAKER) (test iosq=071) 4.3 meq/L 3.5-5.1 Check Serum Potassium level 30 minutes after IV potassium replacement completed.RAD, CHEST, 1 VIEW, NON [id number] 08:24:00Reason for exam:-> post opShould this be [...] [place] Verified Date/Time: 07/03/2018 08:24:18 Reading Location: [facility] Radiology Reading Room POCT-GLUCOSE [id number] 08:16:00 Test Item Value Reference Range Comments POC-GLUCOSE METER (BEAKER) 164 mg/dL 70-110 TESTED AT [address] (test dfur=5397) [facility] [address] RAD, ABDOMEN/KUB, 1 VIEW [id number] 06:21:00Reason for exam:->abd painShould this be performed [...] Spann Verified Date/Time: 07/03/2018 06:21:16 Reading Location: [address] Transitional Reading Room [id number] 04:00:00 Test Item Value Reference Range Comments PHOSPHORUS (BEAKER) (test ketr=819) 2.3 mg/dL 2.3-4.7 [id number] 04:00:00 Test Item Value Reference Range Comments MAGNESIUM (BEAKER) (test evad=104) 1.9 mg/dL 1.6-2.6 BASIC METABOLIC [id number] 04:00:00 Test Item Value Reference Range Comments SODIUM (BEAKER) (test 139 meq/L 136-145 seqs=034) POTASSIUM (BEAKER) (test 3.5 meq/L 3.5-5.1 rjru=565) CHLORIDE (BEAKER) (test 103 meq/L 98-107 ufwk=801) CO2 (BEAKER) (test 27 meq/L 22-29 fbsv=871) BLOOD UREA NITROGEN 27 mg/dL 7-21 (BEAKER) (test leny=627) CREATININE (BEAKER) (test 1.40 mg/dL 0.57-1.25 wrmz=842) GLUCOSE RANDOM (BEAKER) 123 mg/dL 70-105 (test rxyw=227) CALCIUM (BEAKER) (test 8.9 mg/dL 8.4-10.2 fbat=173) EGFR (BEAKER) (test 45 mL/min/1.73 sq m ESTIMATED GFR IS NOT znnk=1354) ACCURATE CREATININE CLEARANCE IN PREDICTING GLOMERULAR FILTRATION RATE. ESTIMATED GFR IS NOT APPLICABLE FOR DIALYSIS PATIENTS. [id number] 03:59:00 Test Item Value Reference Range Comments PARTIAL THROMBOPLASTIN TIME (BEAKER) (test 48.9 seconds 22.5-36.0 tqfo=352) PROTHROMBIN [id number] 03:58:00 Test Item Value Reference Range Comments PROTIME (BEAKER) (test mdal=654) 15.3 seconds 11.7-14.7 INR (BEAKER) (test sdjm=466) 1.2 <=5.9 RECOMMENDED COUMADIN/WARFARIN INR THERAPY RANGESSTANDARD DOSE: 2.0 - 3.0 Includes: PROPHYLAXIS forvenous thrombosis, systemic embolization; TREATMENT for venous thrombosis and/or pulmonary embolus.HIGH RISK: Target INR is 2.5-3.5 for patients with mechanical heart valves.CBC (HEMOGRAM ONLY)2018-07-03 03:39:00 Test Item Value Reference Range Comments WHITE BLOOD CELL COUNT (BEAKER) (test yhyy=978) 8.1 K/ L 3.5-10.5 RED BLOOD CELL COUNT (BEAKER) (test jitk=247) 2.90 M/ L 3.93-5.22 HEMOGLOBIN (BEAKER) (test zzth=254) 9.0 GM/DL 11.2-15.7 HEMATOCRIT (BEAKER) (test rpft=410) 29.4 % 34.1-44.9 MEAN CORPUSCULAR VOLUME (BEAKER) (test rhaw=365) 101.4 fL 79.4-94.8 MEAN CORPUSCULAR HEMOGLOBIN (BEAKER) (test 31.0 pg 25.6-32.2 qotr=520) MEAN CORPUSCULAR HEMOGLOBIN CONC (BEAKER) (test 30.6 GM/DL 32.2-35.5 mrud=927) RED CELL DISTRIBUTION WIDTH (BEAKER) (test 17.8 % 11.7-14.4 owqw=847) PLATELET COUNT (BEAKER) (test geic=096) 245 K/CU MM 150-450 MEAN PLATELET VOLUME (BEAKER) (test upol=699) 9.8 fL 9.4-12.3 NUCLEATED RED BLOOD CELLS (BEAKER) (test 0 /100 WBC 0-0 xoqb=340) OXYGEN SATURATION, [id number] 10:53:00 Test Item Value Reference Range Comments O2 SATURATION (MEASURED) (BEAKER) (test duiu=9171) 50.1 % OXYGEN SATURATION, [id number] 08:54:00 Test Item Value Reference Range Comments O2 SATURATION (MEASURED) (BEAKER) (test xgwq=5151) 45.3 % BLOOD GAS, [id number] 08:54:00 Test Item Value Reference Range Comments PH ARTERIAL (BEAKER) (test jrlh=188) 7.49 7.35-7.45 PCO2 ARTERIAL (BEAKER) (test qpvq=325) 39 mmHg 35-45 PO2 ARTERIAL (BEAKER) (test kdwu=686) 64 mmHg 80-90 O2 SATURATION ARTERIAL (BEAKER) (test cryt=274) 94.6 % 96.0-97.0 HCO3 ARTERIAL (BEAKER) (test zlye=511) 29 mmol/L 21-29 BASE EXCESS ARTERIAL (BEAKER) (test kzun=067) 5.1 mmol/L -2.0-3.0 PATIENT TEMPERATURE (BEAKER) (test vquu=1203) 36.1 C FIO2 (BEAKER) (test uuhc=7967) 32.0 % RAD, CHEST, 1 VIEW, NON [id number] 06:40:00Reason for exam:->ETTShould this be performed at the bedside?->YesFINAL REPORT RAD , CHEST, 1 VIEW, NON DEPT INDICATION: ETT COMPARISON: Prior day's exam FINDINGS : Portable frontal view of the chest. IMPRESSION: Support Lines: Stable. Lungs and pleura: Unchanged airspace and pleural opacities. No pneumothorax.Heart and mediastinum: Stable contours. Stable surgical changes.Additional findings: None. Signed: Maryana Spann Verified Date/Time: 07/02/2018 06:40:32 Reading Location: [address] Transitional Reading Room CBC W/PLT COUNT & AUTO [id number] 05:31 :00 Test Item Value Reference Range Comments WHITE BLOOD CELL COUNT (BEAKER) (test mzrx=812) 7.9 K/ L 3.5-10.5 RED BLOOD CELL COUNT (BEAKER) (test quot=989) 2.83 M/ L 3.93-5.22 HEMOGLOBIN (BEAKER) (test snit=245) 8.6 GM/DL 11.2-15.7 HEMATOCRIT (BEAKER) (test cytd=196) 28.4 % 34.1-44.9 MEAN CORPUSCULAR VOLUME (BEAKER) (test xctk=773) 100.4 fL 79.4-94.8 MEAN CORPUSCULAR HEMOGLOBIN (BEAKER) (test 30.4 pg 25.6-32.2 vlxb=716) MEAN CORPUSCULAR HEMOGLOBIN CONC (BEAKER) (test 30.3 GM/DL 32.2-35.5 gbya=294) RED CELL DISTRIBUTION WIDTH (BEAKER) (test 17.9 % 11.7-14.4 vmgi=597) PLATELET COUNT (BEAKER) (test nqiq=359) 222 K/CU MM 150-450 MEAN PLATELET VOLUME (BEAKER) (test lkki=236) 9.9 fL 9.4-12.3 NUCLEATED RED BLOOD CELLS (BEAKER) (test 0 /100 WBC 0-0 chdc=193) NEUTROPHILS RELATIVE PERCENT (BEAKER) (test 85 % pncv=743) LYMPHOCYTES RELATIVE PERCENT (BEAKER) (test 6 % fgkg=507) MONOCYTES RELATIVE PERCENT (BEAKER) (test 8 % hsza=736) EOSINOPHILS RELATIVE PERCENT (BEAKER) (test 1 % wcuh=159) BASOPHILS RELATIVE PERCENT (BEAKER) (test 0 % udcg=793) NEUTROPHILS ABSOLUTE COUNT (BEAKER) (test 6.67 K/ L 1.56-6.13 quwg=433) LYMPHOCYTES ABSOLUTE COUNT (BEAKER) (test 0.46 K/ L 1.18-3.74 inqf=294) MONOCYTES ABSOLUTE COUNT (BEAKER) (test 0.64 K/ L 0.24-0.36 dbgk=136) EOSINOPHILS ABSOLUTE COUNT (BEAKER) (test 0.06 K/ L 0.04-0.36 wofc=091) BASOPHILS ABSOLUTE COUNT (BEAKER) (test 0.02 K/ L 0.01-0.08 nuvs=181) IMMATURE GRANULOCYTES-RELATIVE PERCENT (BEAKER) 1 % 0-1 (test iruj=7620) BASIC METABOLIC [id number] 04:54:00 Test Item Value Reference Range Comments SODIUM (BEAKER) (test 140 meq/L 136-145 xnyv=657) POTASSIUM (BEAKER) (test 3.7 meq/L 3.5-5.1 jeiy=224) CHLORIDE (BEAKER) (test 104 meq/L 98-107 rxoc=629) CO2 (BEAKER) (test 28 meq/L 22-29 hsup=235) BLOOD UREA NITROGEN 29 mg/dL 7-21 (BEAKER) (test vjrf=712) CREATININE (BEAKER) (test 1.49 mg/dL 0.57-1.25 smng=749) GLUCOSE RANDOM (BEAKER) 107 mg/dL 70-105 (test ngve=259) CALCIUM (BEAKER) (test 8.9 mg/dL 8.4-10.2 jhhf=079) EGFR (BEAKER) (test 42 mL/min/1.73 sq m ESTIMATED GFR IS NOT hoeu=8798) ACCURATE CREATININE CLEARANCE IN PREDICTING GLOMERULAR FILTRATION RATE. ESTIMATED GFR IS NOT APPLICABLE FOR DIALYSIS PATIENTS. BASIC METABOLIC [id number] 18:41:00 Test Item Value Reference Range Comments SODIUM (BEAKER) (test 140 meq/L 136-145 mziv=887) POTASSIUM (BEAKER) (test 4.1 meq/L 3.5-5.1 xrpf=004) CHLORIDE (BEAKER) (test 104 meq/L 98-107 noed=510) CO2 (BEAKER) (test 25 meq/L 22-29 sujl=728) BLOOD UREA NITROGEN 31 mg/dL 7-21 (BEAKER) (test xjuy=847) CREATININE (BEAKER) (test 1.55 mg/dL 0.57-1.25 asow=560) GLUCOSE RANDOM (BEAKER) 127 mg/dL 70-105 (test cfqj=859) CALCIUM (BEAKER) (test 9.0 mg/dL 8.4-10.2 fcgp=379) EGFR (BEAKER) (test 40 mL/min/1.73 sq m ESTIMATED GFR IS NOT wwpl=7953) ACCURATE CREATININE CLEARANCE IN PREDICTING GLOMERULAR FILTRATION RATE. ESTIMATED GFR IS NOT APPLICABLE FOR DIALYSIS PATIENTS. BLOOD GAS, [id number] 18:12:00 Test Item Value Reference Range Comments PH ARTERIAL (BEAKER) (test tkyh=525) 7.50 7.35-7.45 PCO2 ARTERIAL (BEAKER) (test vupd=490) 39 mmHg 35-45 PO2 ARTERIAL (BEAKER) (test mbfl=630) 59 mmHg 80-90 O2 SATURATION ARTERIAL (BEAKER) (test bifi=384) 92.7 % 96.0-97.0 HCO3 ARTERIAL (BEAKER) (test cnri=996) 30 mmol/L 21-29 BASE EXCESS ARTERIAL (BEAKER) (test dnrd=044) 6.0 mmol/L -2.0-3.0 PATIENT TEMPERATURE (BEAKER) (test dtyx=4449) 36.9 C FIO2 (BEAKER) (test vbrs=9985) 32.0 % RAD, CHEST, 1 VIEW, NON [id number] 07:32:00Reason for exam:->ETTShould this be performed at the bedside?->YesFINAL REPORT Chest one view. Clinical history: ETT Comparison: 06/30/2018 Discussion: A frontal chest is provided. Cardiomediastinal contours are unchanged. ET has been removed. Left IJ line is unchanged. There is unchanged mild vascular congestion and interstitial edema. Probable small left effusion. No pneumothorax. Signed: Morgan Chengeport Verified Date/Time: 07/01/2018 07:32: 43 Reading Location: [facility] C013V Neuro Reading Room BASIC METABOLIC [id number] 06:20:00 Test Item Value Reference Range Comments SODIUM (BEAKER) (test 142 meq/L 136-145 uepk=306) POTASSIUM (BEAKER) (test 4.3 meq/L 3.5-5.1 eibr=024) CHLORIDE (BEAKER) (test 106 meq/L 98-107 ymag=098) CO2 (BEAKER) (test 27 meq/L 22-29 gnuh=340) BLOOD UREA NITROGEN 34 mg/dL 7-21 (BEAKER) (test zxce=902) CREATININE (BEAKER) (test 1.67 mg/dL 0.57-1.25 hgyo=048) GLUCOSE RANDOM (BEAKER) 130 mg/dL 70-105 (test hghd=345) CALCIUM (BEAKER) (test 9.1 mg/dL 8.4-10.2 egvt=374) EGFR (BEAKER) (test 37 mL/min/1.73 sq m ESTIMATED GFR IS NOT nfmt=5527) ACCURATE CREATININE CLEARANCE IN PREDICTING GLOMERULAR FILTRATION RATE. ESTIMATED GFR IS NOT APPLICABLE FOR DIALYSIS PATIENTS. CBC W/PLT COUNT & AUTO [id number] 05:56:00 Test Item Value Reference Range Comments WHITE BLOOD CELL COUNT (BEAKER) (test kgze=218) 6.9 K/ L 3.5-10.5 RED BLOOD CELL COUNT (BEAKER) (test gwos=421) 2.88 M/ L 3.93-5.22 HEMOGLOBIN (BEAKER) (test mehz=109) 8.9 GM/DL 11.2-15.7 HEMATOCRIT (BEAKER) (test enkx=651) 29.5 % 34.1-44.9 MEAN CORPUSCULAR VOLUME (BEAKER) (test cjkv=616) 102.4 fL 79.4-94.8 MEAN CORPUSCULAR HEMOGLOBIN (BEAKER) (test 30.9 pg 25.6-32.2 gepj=884) MEAN CORPUSCULAR HEMOGLOBIN CONC (BEAKER) (test 30.2 GM/DL 32.2-35.5 gtiz=407) RED CELL DISTRIBUTION WIDTH (BEAKER) (test 17.8 % 11.7-14.4 nkug=454) PLATELET COUNT (BEAKER) (test zhls=543) 211 K/CU MM 150-450 MEAN PLATELET VOLUME (BEAKER) (test wnkz=750) 9.6 fL 9.4-12.3 NUCLEATED RED BLOOD CELLS (BEAKER) (test 0 /100 WBC 0-0 tini=602) NEUTROPHILS RELATIVE PERCENT (BEAKER) (test 86 % emos=144) LYMPHOCYTES RELATIVE PERCENT (BEAKER) (test 5 % ptwv=464) MONOCYTES RELATIVE PERCENT (BEAKER) (test 8 % dzrw=933) EOSINOPHILS RELATIVE PERCENT (BEAKER) (test 0 % crsy=143) BASOPHILS RELATIVE PERCENT (BEAKER) (test 0 % erko=527) NEUTROPHILS ABSOLUTE COUNT (BEAKER) (test 5.94 K/ L 1.56-6.13 xpdm=337) LYMPHOCYTES ABSOLUTE COUNT (BEAKER) (test 0.37 K/ L 1.18-3.74 ivqt=957) MONOCYTES ABSOLUTE COUNT (BEAKER) (test 0.53 K/ L 0.24-0.36 hvsc=898) EOSINOPHILS ABSOLUTE COUNT (BEAKER) (test 0.02 K/ L 0.04-0.36 yymh=272) BASOPHILS ABSOLUTE COUNT (BEAKER) (test 0.01 K/ L 0.01-0.08 tsxb=864) IMMATURE GRANULOCYTES-RELATIVE PERCENT (BEAKER) 0 % 0-1 (test polr=8933) [id number] 15:31:00 Test Item Value Reference Range Comments MAGNESIUM (BEAKER) (test cajp=273) 2.2 mg/dL 1.6-2.6 BASIC METABOLIC [id number] 15:31:00 Test Item Value Reference Range Comments SODIUM (BEAKER) (test 137 meq/L 136-145 cjzq=181) POTASSIUM (BEAKER) (test 4.5 meq/L 3.5-5.1 qpxa=376) CHLORIDE (BEAKER) (test 102 meq/L 98-107 nfhh=051) CO2 (BEAKER) (test 24 meq/L 22-29 rhwx=456) BLOOD UREA NITROGEN 36 mg/dL 7-21 (BEAKER) (test glzd=516) CREATININE (BEAKER) (test 1.78 mg/dL 0.57-1.25 suxc=192) GLUCOSE RANDOM (BEAKER) 179 mg/dL 70-105 (test qlxg=293) CALCIUM (BEAKER) (test 8.8 mg/dL 8.4-10.2 jxur=705) EGFR (BEAKER) (test 34 mL/min/1.73 sq m ESTIMATED GFR IS NOT ltof=0651) ACCURATE CREATININE CLEARANCE IN PREDICTING GLOMERULAR FILTRATION RATE. ESTIMATED GFR IS NOT APPLICABLE FOR DIALYSIS PATIENTS. CBC W/PLT COUNT & AUTO [id number] 15:17:00 Test Item Value Reference Range Comments WHITE BLOOD CELL COUNT (BEAKER) (test wfdg=138) 7.3 K/ L 3.5-10.5 RED BLOOD CELL COUNT (BEAKER) (test amyl=134) 3.02 M/ L 3.93-5.22 HEMOGLOBIN (BEAKER) (test ohlh=123) 9.5 GM/DL 11.2-15.7 HEMATOCRIT (BEAKER) (test kbne=294) 31.3 % 34.1-44.9 MEAN CORPUSCULAR VOLUME (BEAKER) (test vmzm=536) 103.6 fL 79.4-94.8 MEAN CORPUSCULAR HEMOGLOBIN (BEAKER) (test 31.5 pg 25.6-32.2 bpkq=825) MEAN CORPUSCULAR HEMOGLOBIN CONC (BEAKER) (test 30.4 GM/DL 32.2-35.5 qewe=654) RED CELL DISTRIBUTION WIDTH (BEAKER) (test 17.8 % 11.7-14.4 baij=429) PLATELET COUNT (BEAKER) (test aypt=851) 229 K/CU MM 150-450 MEAN PLATELET VOLUME (BEAKER) (test praa=154) 9.7 fL 9.4-12.3 NUCLEATED RED BLOOD CELLS (BEAKER) (test 0 /100 WBC 0-0 lrty=769) NEUTROPHILS RELATIVE PERCENT (BEAKER) (test 91 % ahja=842) LYMPHOCYTES RELATIVE PERCENT (BEAKER) (test 3 % bzmg=352) MONOCYTES RELATIVE PERCENT (BEAKER) (test 5 % nszm=832) EOSINOPHILS RELATIVE PERCENT (BEAKER) (test 0 % eosn=809) BASOPHILS RELATIVE PERCENT (BEAKER) (test 0 % ecle=841) NEUTROPHILS ABSOLUTE COUNT (BEAKER) (test 6.62 K/ L 1.56-6.13 nfpq=998) LYMPHOCYTES ABSOLUTE COUNT (BEAKER) (test 0.23 K/ L 1.18-3.74 kaln=170) MONOCYTES ABSOLUTE COUNT (BEAKER) (test 0.39 K/ L 0.24-0.36 axlr=657) EOSINOPHILS ABSOLUTE COUNT (BEAKER) (test 0.00 K/ L 0.04-0.36 xcye=812) BASOPHILS ABSOLUTE COUNT (BEAKER) (test 0.02 K/ L 0.01-0.08 oyyb=540) IMMATURE GRANULOCYTES-RELATIVE PERCENT (BEAKER) 0 % 0-1 (test szhy=0863) RAD, CHEST, 1 VIEW, NON [id number] 08:50:00Reason for exam:->ETTShould this be performed at [...] MDReport Verified Date/Time: 06/30/2018 08:50:44 Reading Location: [address] Ultrasound Reading Room [id number] 06:52:00 Test Item Value Reference Range Comments ACTIVATED CLOTTING TIME 147 sec TESTED AT [place] [id number] [place] (BEAKER) (test mbqc=110) [place] [address] [id number] 06:52:00 Test Item Value Reference Range Comments ACTIVATED CLOTTING TIME 252 sec TESTED AT [place] [id number] [place] (BEAKER) (test gffg=911) [place] [address] [id number] 06:52:00 Test Item Value Reference Range Comments ACTIVATED CLOTTING TIME 257 sec TESTED AT [address] (BEAKER) (test kzxj=661) [place] [address] [id number] 06:52:00 Test Item Value Reference Range Comments ACTIVATED CLOTTING TIME 246 sec TESTED AT [address] (BEAKER) (test qcyw=762) [place] [address] LACTIC ACID, [id number] 05:16:00 Test Item Value Reference Range Comments LACTATE BLOOD ARTERIAL (2) (BEAKER) (test 1.0 mmol/L 0.5-2.2 sghh=5316) BLOOD GAS, [id number] 05:06:00 Test Item Value Reference Range Comments PH ARTERIAL (BEAKER) (test ravz=719) 7.38 7.35-7.45 PCO2 ARTERIAL (BEAKER) (test ppyw=244) 40 mmHg 35-45 PO2 ARTERIAL (BEAKER) (test vhkw=812) 107 mmHg 80-90 O2 SATURATION ARTERIAL (BEAKER) (test aked=176) 97.9 % 96.0-97.0 HCO3 ARTERIAL (BEAKER) (test gxat=957) 23 mmol/L 21-29 BASE EXCESS ARTERIAL (BEAKER) (test svds=191) -2.1 mmol/L -2.0-3.0 PATIENT TEMPERATURE (BEAKER) (test cadk=4633) 36.7 C FIO2 (BEAKER) (test yvdl=5372) 60.0 % CBC W/PLT COUNT & AUTO [id number] 04:59:00 Test Item Value Reference Range Comments WHITE BLOOD CELL COUNT (BEAKER) (test toad=440) 8.9 K/ L 3.5-10.5 RED BLOOD CELL COUNT (BEAKER) (test txcj=722) 3.28 M/ L 3.93-5.22 HEMOGLOBIN (BEAKER) (test wjtf=150) 10.0 GM/DL 11.2-15.7 HEMATOCRIT (BEAKER) (test daqs=987) 34.4 % 34.1-44.9 MEAN CORPUSCULAR VOLUME (BEAKER) (test bysd=263) 104.9 fL 79.4-94.8 MEAN CORPUSCULAR HEMOGLOBIN (BEAKER) (test 30.5 pg 25.6-32.2 tnwh=030) MEAN CORPUSCULAR HEMOGLOBIN CONC (BEAKER) (test 29.1 GM/DL 32.2-35.5 frkq=382) RED CELL DISTRIBUTION WIDTH (BEAKER) (test 17.6 % 11.7-14.4 llmi=295) PLATELET COUNT (BEAKER) (test ujcp=214) 276 K/CU MM 150-450 MEAN PLATELET VOLUME (BEAKER) (test wyck=655) 9.7 fL 9.4-12.3 NUCLEATED RED BLOOD CELLS (BEAKER) (test 0 /100 WBC 0-0 prym=592) NEUTROPHILS RELATIVE PERCENT (BEAKER) (test 90 % kyss=549) LYMPHOCYTES RELATIVE PERCENT (BEAKER) (test 3 % hckb=629) MONOCYTES RELATIVE PERCENT (BEAKER) (test 6 % bwbq=027) EOSINOPHILS RELATIVE PERCENT (BEAKER) (test 0 % ovgf=297) BASOPHILS RELATIVE PERCENT (BEAKER) (test 0 % hwtc=460) NEUTROPHILS ABSOLUTE COUNT (BEAKER) (test 8.00 K/ L 1.56-6.13 uzwa=343) LYMPHOCYTES ABSOLUTE COUNT (BEAKER) (test 0.30 K/ L 1.18-3.74 igqc=422) MONOCYTES ABSOLUTE COUNT (BEAKER) (test 0.51 K/ L 0.24-0.36 wyxz=136) EOSINOPHILS ABSOLUTE COUNT (BEAKER) (test 0.01 K/ L 0.04-0.36 glmc=261) BASOPHILS ABSOLUTE COUNT (BEAKER) (test 0.02 K/ L 0.01-0.08 bdhx=468) IMMATURE GRANULOCYTES-RELATIVE PERCENT (BEAKER) 1 % 0-1 (test avpo=3586) B-TYPE NATRIURETIC FACTOR (BNP)2018-06-30 04:19:00 Test Item Value Reference Range Comments B-TYPE NATRIURETIC PEPTIDE (BEAKER) (test 46642 pg/mL 0-100 tfyg=281) HEPATIC FUNCTION [id number] 04:01:00 Test Item Value Reference Range Comments TOTAL PROTEIN (BEAKER) (test alak=876) 6.5 gm/dL 6.0-8.3 ALBUMIN (BEAKER) (test dbxv=6537) 3.4 g/dL 3.5-5.0 BILIRUBIN TOTAL (BEAKER) (test zosc=079) 1.2 mg/dL 0.2-1.2 BILIRUBIN DIRECT (BEAKER) (test rygz=974) 0.8 mg/dL 0.1-0.5 ALKALINE PHOSPHATASE (BEAKER) (test moxs=567) 103 U/L 40-150 AST (SGOT) (BEAKER) (test zrfw=373) 17 U/L 5-34 ALT (SGPT) (BEAKER) (test wklo=783) 15 U/L 6-55 RAD, CHEST, 1 VIEW, NON [id number] 02:31:00Reason for exam:->ETTShould this be performed at [...] MDReport Verified Date/Time: 06/30/2018 02:31:37 Reading Location: [address] Transitional Reading Room [id number] 02:27:00 Test Item Value Reference Range Comments PARTIAL THROMBOPLASTIN TIME (BEAKER) (test 39.5 seconds 22.5-36.0 wixu=161) PROTHROMBIN TIME/[id number] 02:26:00 Test Item Value Reference Range Comments PROTIME (BEAKER) (test bvce=673) 16.5 seconds 11.7-14.7 INR (BEAKER) (test esyc=006) 1.3 <=5.9 RECOMMENDED COUMADIN/WARFARIN INR THERAPY RANGESSTANDARD DOSE: 2.0 - 3.0 Includes: PROPHYLAXIS forvenous thrombosis, systemic embolization; TREATMENT for venous thrombosis and/or pulmonary embolus.HIGH RISK: Target INR is 2.5-3.5 for patients with mechanical heart valves.BASIC METABOLIC [id number] 02:09: 00 Test Item Value Reference Range Comments SODIUM (BEAKER) (test 137 meq/L 136-145 zlqe=802) POTASSIUM (BEAKER) (test 4.9 meq/L 3.5-5.1 vgop=057) CHLORIDE (BEAKER) (test 103 meq/L 98-107 dfzq=353) CO2 (BEAKER) (test 23 meq/L 22-29 ihhn=779) BLOOD UREA NITROGEN 32 mg/dL 7-21 (BEAKER) (test gwvg=712) CREATININE (BEAKER) (test 1.74 mg/dL 0.57-1.25 ksll=417) GLUCOSE RANDOM (BEAKER) 143 mg/dL 70-105 (test pwek=339) CALCIUM (BEAKER) (test 8.8 mg/dL 8.4-10.2 nojn=627) EGFR (BEAKER) (test 35 mL/min/1.73 sq m ESTIMATED GFR IS NOT ovpo=4958) ACCURATE CREATININE CLEARANCE IN PREDICTING GLOMERULAR FILTRATION RATE. ESTIMATED GFR IS NOT APPLICABLE FOR DIALYSIS PATIENTS. LACTIC ACID, [id number] 02:06:00 Test Item Value Reference Range Comments LACTATE BLOOD ARTERIAL (2) (BEAKER) (test 0.8 mmol/L 0.5-2.2 jxfk=5082) OXYGEN SATURATION, [id number] 01:59:00 Test Item Value Reference Range Comments O2 SATURATION (MEASURED) (BEAKER) (test qzmx=9708) 79.3 % BLOOD GAS, [id number] 01:58:00 Test Item Value Reference Range Comments PH ARTERIAL (BEAKER) (test jyhe=039) 7.34 7.35-7.45 PCO2 ARTERIAL (BEAKER) (test ofjs=019) 50 mmHg 35-45 PO2 ARTERIAL (BEAKER) (test jokn=389) 78 mmHg 80-90 O2 SATURATION ARTERIAL (BEAKER) (test mlxy=951) 95.4 % 96.0-97.0 HCO3 ARTERIAL (BEAKER) (test bbiu=980) 27 mmol/L 21-29 BASE EXCESS ARTERIAL (BEAKER) (test alhe=384) 0.3 mmol/L -2.0-3.0 PATIENT TEMPERATURE (BEAKER) (test npxl=9676) 35.8 C FIO2 (BEAKER) (test rrhm=2487) 60.0 % CBC W/PLT COUNT & AUTO [id number] 01:57:00 Test Item Value Reference Range Comments WHITE BLOOD CELL COUNT (BEAKER) (test gnqp=158) 9.7 K/ L 3.5-10.5 RED BLOOD CELL COUNT (BEAKER) (test fjyh=826) 3.18 M/ L 3.93-5.22 HEMOGLOBIN (BEAKER) (test ivca=294) 9.8 GM/DL 11.2-15.7 HEMATOCRIT (BEAKER) (test hytm=178) 33.3 % 34.1-44.9 MEAN CORPUSCULAR VOLUME (BEAKER) (test umfz=494) 104.7 fL 79.4-94.8 MEAN CORPUSCULAR HEMOGLOBIN (BEAKER) (test 30.8 pg 25.6-32.2 ifwx=175) MEAN CORPUSCULAR HEMOGLOBIN CONC (BEAKER) (test 29.4 GM/DL 32.2-35.5 atuq=669) RED CELL DISTRIBUTION WIDTH (BEAKER) (test 17.5 % 11.7-14.4 xynf=320) PLATELET COUNT (BEAKER) (test ecbt=627) 289 K/CU MM 150-450 MEAN PLATELET VOLUME (BEAKER) (test ezqc=275) 9.7 fL 9.4-12.3 NUCLEATED RED BLOOD CELLS (BEAKER) (test 0 /100 WBC 0-0 qmex=669) NEUTROPHILS RELATIVE PERCENT (BEAKER) (test 88 % mfmq=458) LYMPHOCYTES RELATIVE PERCENT (BEAKER) (test 5 % nhtc=287) MONOCYTES RELATIVE PERCENT (BEAKER) (test 4 % gsvu=095) EOSINOPHILS RELATIVE PERCENT (BEAKER) (test 1 % ilic=848) BASOPHILS RELATIVE PERCENT (BEAKER) (test 0 % ocgj=330) NEUTROPHILS ABSOLUTE COUNT (BEAKER) (test 8.53 K/ L 1.56-6.13 vkjm=672) LYMPHOCYTES ABSOLUTE COUNT (BEAKER) (test 0.48 K/ L 1.18-3.74 enee=706) MONOCYTES ABSOLUTE COUNT (BEAKER) (test 0.41 K/ L 0.24-0.36 ssjk=591) EOSINOPHILS ABSOLUTE COUNT (BEAKER) (test 0.13 K/ L 0.04-0.36 zmgk=032) BASOPHILS ABSOLUTE COUNT (BEAKER) (test 0.04 K/ L 0.01-0.08 udcj=730) IMMATURE GRANULOCYTES-RELATIVE PERCENT (BEAKER) 1 % 0-1 (test yzsi=2747) FILTER IONIZED [id number] 23:29:00 Test Item Value Reference Range Comments FILTER IONIZED CALCIUM (BEAKER) (test eode=6584) 1.14 mmol/L Reference Range: No NormalsBLOOD GAS, [id number] 23:29:00 Test Item Value Reference Range Comments PH ARTERIAL (BEAKER) (test tljk=371) 7.38 7.35-7.45 PCO2 ARTERIAL (BEAKER) (test eiha=968) 49 mmHg 35-45 PO2 ARTERIAL (BEAKER) (test ysiz=363) 202 mmHg 80-90 O2 SATURATION ARTERIAL (BEAKER) (test psxs=587) 99.4 % 96.0-97.0 HCO3 ARTERIAL (BEAKER) (test yvhb=933) 29 mmol/L 21-29 BASE EXCESS ARTERIAL (BEAKER) (test hrjb=881) 2.6 mmol/L -2.0-3.0 PATIENT TEMPERATURE (BEAKER) (test iliu=8597) 35.6 C FIO2 (BEAKER) (test lmrq=7589) 100.0 % HGB/HCT (H&H) - STAT [id number] 23:28:00 Test Item Value Reference Range Comments HEMOGLOBIN (BEAKER) (test hxjd=469) 10.7 g/dL 12.0-15.0 HEMATOCRIT (BEAKER) (test drrm=044) 31.0 % 36.0-45.0 GLUCOSE-STAT [id number] 23:25:00 Test Item Value Reference Range Comments GLUCOSE RANDOM (BEAKER) (test gpau=984) 97 mg/dL 70-110 SODIUM NA-STAT [id number] 23:25:00 Test Item Value Reference Range Comments SODIUM (BEAKER) (test cvce=645) 137 meq/L 135-148 POTASSIUM-STAT [id number] 23:25:00 Test Item Value Reference Range Comments POTASSIUM (BEAKER) (test ibin=968) 4.4 meq/L 3.6-5.5 B-TYPE NATRIURETIC FACTOR (BNP)2018-06-29 21:59:00 Test Item Value Reference Range Comments B-TYPE NATRIURETIC PEPTIDE (BEAKER) (test 28396 pg/mL 0-100 vehc=000) BASIC METABOLIC [id number] 21:31:00 Test Item Value Reference Range Comments SODIUM (BEAKER) (test 140 meq/L 136-145 nkaz=119) POTASSIUM (BEAKER) (test 4.6 meq/L 3.5-5.1 rlsl=120) CHLORIDE (BEAKER) (test 104 meq/L 98-107 igvx=315) CO2 (BEAKER) (test 25 meq/L 22-29 ecng=192) BLOOD UREA NITROGEN 33 mg/dL 7-21 (BEAKER) (test itgl=114) CREATININE (BEAKER) (test 1.78 mg/dL 0.57-1.25 bxzu=374) GLUCOSE RANDOM (BEAKER) 79 mg/dL 70-105 (test bneq=631) CALCIUM (BEAKER) (test 9.4 mg/dL 8.4-10.2 oaia=984) EGFR (BEAKER) (test 34 mL/min/1.73 sq m ESTIMATED GFR IS NOT duih=4947) ACCURATE CREATININE CLEARANCE IN PREDICTING GLOMERULAR FILTRATION RATE. ESTIMATED GFR IS NOT APPLICABLE FOR DIALYSIS PATIENTS. [id number] 21:18:00 Test Item Value Reference Range Comments PARTIAL THROMBOPLASTIN TIME (BEAKER) (test 36.1 seconds 22.5-36.0 fecp=649) PROTHROMBIN TIME/[id number] 21:17:00 Test Item Value Reference Range Comments PROTIME (BEAKER) (test nnfb=305) 15.1 seconds 11.7-14.7 INR (BEAKER) (test ebul=150) 1.2 <=5.9 RECOMMENDED COUMADIN/WARFARIN INR THERAPY RANGESSTANDARD DOSE: 2.0 - 3.0 Includes: PROPHYLAXIS forvenous thrombosis, systemic embolization; TREATMENT for venous thrombosis and/or pulmonary embolus.HIGH RISK: Target INR is 2.5-3.5 for patients with mechanical heart valves.CBC W/PLT COUNT & AUTO [id number] 21:05:00 Test Item Value Reference Range Comments WHITE BLOOD CELL COUNT (BEAKER) (test jtva=310) 5.3 K/ L 3.5-10.5 RED BLOOD CELL COUNT (BEAKER) (test ewtg=428) 3.43 M/ L 3.93-5.22 HEMOGLOBIN (BEAKER) (test unuw=384) 10.6 GM/DL 11.2-15.7 HEMATOCRIT (BEAKER) (test kzgv=315) 36.3 % 34.1-44.9 MEAN CORPUSCULAR VOLUME (BEAKER) (test xsvr=042) 105.8 fL 79.4-94.8 MEAN CORPUSCULAR HEMOGLOBIN (BEAKER) (test 30.9 pg 25.6-32.2 rqrj=426) MEAN CORPUSCULAR HEMOGLOBIN CONC (BEAKER) (test 29.2 GM/DL 32.2-35.5 ynqi=164) RED CELL DISTRIBUTION WIDTH (BEAKER) (test 17.9 % 11.7-14.4 pron=468) PLATELET COUNT (BEAKER) (test qfhk=646) 294 K/CU MM 150-450 MEAN PLATELET VOLUME (BEAKER) (test bljw=016) 9.4 fL 9.4-12.3 NUCLEATED RED BLOOD CELLS (BEAKER) (test 0 /100 WBC 0-0 zymo=156) NEUTROPHILS RELATIVE PERCENT (BEAKER) (test 75 % sqtq=660) LYMPHOCYTES RELATIVE PERCENT (BEAKER) (test 12 % ywag=636) MONOCYTES RELATIVE PERCENT (BEAKER) (test 8 % litk=321) EOSINOPHILS RELATIVE PERCENT (BEAKER) (test 4 % oete=898) BASOPHILS RELATIVE PERCENT (BEAKER) (test 1 % qcio=438) NEUTROPHILS ABSOLUTE COUNT (BEAKER) (test 3.97 K/ L 1.56-6.13 yjlg=070) LYMPHOCYTES ABSOLUTE COUNT (BEAKER) (test 0.64 K/ L 1.18-3.74 tdja=152) MONOCYTES ABSOLUTE COUNT (BEAKER) (test 0.42 K/ L 0.24-0.36 rbgf=814) EOSINOPHILS ABSOLUTE COUNT (BEAKER) (test 0.19 K/ L 0.04-0.36 wkvh=084) BASOPHILS ABSOLUTE COUNT (BEAKER) (test 0.05 K/ L 0.01-0.08 mfhm=832) IMMATURE GRANULOCYTES-RELATIVE PERCENT (BEAKER) 0 % 0-1 (test bgdd=0659) B-TYPE NATRIURETIC FACTOR (BNP)2017-08-18 15:08:00 Test Item Value Reference Range Comments B-TYPE NATRIURETIC PEPTIDE (BEAKER) (test 867 pg/mL 0-100 wvgp=394) BASIC METABOLIC [id number] 15:05:00 Test Item Value Reference Range Comments SODIUM (BEAKER) (test 140 meq/L 136-145 dtte=095) POTASSIUM (BEAKER) (test 4.6 meq/L 3.5-5.1 merq=764) CHLORIDE (BEAKER) (test 98 meq/L 98-107 sreg=671) CO2 (BEAKER) (test 32 meq/L 22-29 slds=193) BLOOD UREA NITROGEN 30 mg/dL 7-21 (BEAKER) (test mfyh=114) CREATININE (BEAKER) (test 2.58 mg/dL 0.57-1.25 kmzo=866) GLUCOSE RANDOM (BEAKER) 105 mg/dL 70-105 (test ggaw=543) CALCIUM (BEAKER) (test 10.3 mg/dL 8.4-10.2 kylc=504) EGFR (BEAKER) (test 22 mL/min/1.73 sq m ESTIMATED GFR IS NOT wjfr=1547) ACCURATE CREATININE CLEARANCE IN PREDICTING GLOMERULAR FILTRATION RATE. ESTIMATED GFR IS NOT APPLICABLE FOR DIALYSIS PATIENTS. [id number] 15:02:00 Test Item Value Reference Range Comments MAGNESIUM (BEAKER) (test pvfg=612) 2.0 mg/dL 1.6-2.6 POCT-GLUCOSE [id number] 12:40:00 Test Item Value Reference Range Comments POC-GLUCOSE METER (BEAKER) 225 mg/dL 70-110 TESTED AT [address] (test ycyd=3566) [place] [address] POCT-GLUCOSE [id number] 08:32:00 Test Item Value Reference Range Comments POC-GLUCOSE METER (BEAKER) 148 mg/dL 70-110 TESTED AT [address] (test suuk=9979) [place] [address] BASIC METABOLIC [id number] 05:56:00 Test Item Value Reference Range Comments SODIUM (BEAKER) (test 138 meq/L 136-145 epmz=110) POTASSIUM (BEAKER) (test 4.0 meq/L 3.5-5.1 vbtz=479) CHLORIDE (BEAKER) (test 98 meq/L 98-107 bzkg=123) CO2 (BEAKER) (test 29 meq/L 22-29 indh=555) BLOOD UREA NITROGEN 14 mg/dL 7-21 (BEAKER) (test qpan=412) CREATININE (BEAKER) (test 1.85 mg/dL 0.57-1.25 nwve=427) GLUCOSE RANDOM (BEAKER) 116 mg/dL 70-105 (test sbis=567) CALCIUM (BEAKER) (test 9.9 mg/dL 8.4-10.2 ynwg=974) EGFR (BEAKER) (test 33 mL/min/1.73 sq m ESTIMATED GFR IS NOT tgtq=8203) ACCURATE CREATININE CLEARANCE IN PREDICTING GLOMERULAR FILTRATION RATE. ESTIMATED GFR IS NOT APPLICABLE FOR DIALYSIS PATIENTS. POCT-GLUCOSE [id number] 21:38:00 Test Item Value Reference Range Comments POC-GLUCOSE METER (BEAKER) 162 mg/dL 70-110 TESTED AT [address] (test zjlx=4032) [place] [address] POCT-GLUCOSE [id number] 17:02:00 Test Item Value Reference Range Comments POC-GLUCOSE METER (BEAKER) 160 mg/dL 70-110 TESTED AT [address] (test mkej=2627) [place] [address] POCT-GLUCOSE [id number] 12:33:00 Test Item Value Reference Range Comments POC-GLUCOSE METER (BEAKER) 163 mg/dL 70-110 TESTED AT [address] (test fejl=5194) [place] [address] POCT-GLUCOSE [id number] 10:33:00 Test Item Value Reference Range Comments POC-GLUCOSE METER (BEAKER) 175 mg/dL 70-110 TESTED AT [address] (test wzqa=2937) [place] [address] [id number] 04:51:00 Test Item Value Reference Range Comments MAGNESIUM (BEAKER) (test 2.0 mg/dL 1.6-2.6 Specimen slightly hemolyzed bybx=027) BASIC METABOLIC [id number] 04:51:00 Test Item Value Reference Range Comments SODIUM (BEAKER) (test 139 meq/L 136-145 jsuv=945) POTASSIUM (BEAKER) (test 3.8 meq/L 3.5-5.1 Specimen slightly gkxu=705) hemolyzed CHLORIDE (BEAKER) (test 99 meq/L 98-107 hjou=347) CO2 (BEAKER) (test 27 meq/L 22-29 gaqy=357) BLOOD UREA NITROGEN 14 mg/dL 7-21 (BEAKER) (test dftw=046) CREATININE (BEAKER) (test 1.61 mg/dL 0.57-1.25 Specimen slightly dkpe=513) hemolyzed GLUCOSE RANDOM (BEAKER) 139 mg/dL 70-105 (test iivx=926) CALCIUM (BEAKER) (test 10.0 mg/dL 8.4-10.2 idkj=591) EGFR (BEAKER) (test 38 mL/min/1.73 sq m ESTIMATED GFR IS NOT xcgh=0217) ACCURATE CREATININE CLEARANCE IN PREDICTING GLOMERULAR FILTRATION RATE. ESTIMATED GFR IS NOT APPLICABLE FOR DIALYSIS PATIENTS. POCT-GLUCOSE [id number] 21:32:00 Test Item Value Reference Range Comments POC-GLUCOSE METER (BEAKER) 176 mg/dL 70-110 TESTED AT [address] (test wlrk=9136) [place] [address] POCT-GLUCOSE [id number] 17:22:00 Test Item Value Reference Range Comments POC-GLUCOSE METER (BEAKER) 232 mg/dL 70-110 TESTED AT [address] (test pheo=0838) [place] [address] POCT-GLUCOSE [id number] 12:47:00 Test Item Value Reference Range Comments POC-GLUCOSE METER (BEAKER) 162 mg/dL 70-110 TESTED AT [address] (test dxkh=6562) [place] [address] POCT-GLUCOSE [id number] 08:15:00 Test Item Value Reference Range Comments POC-GLUCOSE METER (BEAKER) 149 mg/dL 70-110 TESTED AT [address] (test hhsu=3282) [place] [address] [id number] 07:05:00 Test Item Value Reference Range Comments MAGNESIUM (BEAKER) (test hocw=004) 1.9 mg/dL 1.6-2.6 BASIC METABOLIC [id number] 07:05:00 Test Item Value Reference Range Comments SODIUM (BEAKER) (test 136 meq/L 136-145 boau=133) POTASSIUM (BEAKER) (test 3.8 meq/L 3.5-5.1 fifn=386) CHLORIDE (BEAKER) (test 98 meq/L 98-107 wrpl=064) CO2 (BEAKER) (test 30 meq/L 22-29 zjzl=311) BLOOD UREA NITROGEN 14 mg/dL 7-21 (BEAKER) (test dwnz=706) CREATININE (BEAKER) (test 1.56 mg/dL 0.57-1.25 tohw=006) GLUCOSE RANDOM (BEAKER) 129 mg/dL 70-105 (test rrhi=662) CALCIUM (BEAKER) (test 9.8 mg/dL 8.4-10.2 qiwf=796) EGFR (BEAKER) (test 40 mL/min/1.73 sq m ESTIMATED GFR IS NOT zkdi=9073) ACCURATE CREATININE CLEARANCE IN PREDICTING GLOMERULAR FILTRATION RATE. ESTIMATED GFR IS NOT APPLICABLE FOR DIALYSIS PATIENTS. POCT-GLUCOSE [id number] 20:56:00 Test Item Value Reference Range Comments POC-GLUCOSE METER (BEAKER) 112 mg/dL 70-110 TESTED AT [address] (test qovh=1575) [place] [address] POCT-GLUCOSE [id number] 17:48:00 Test Item Value Reference Range Comments POC-GLUCOSE METER (BEAKER) 213 mg/dL 70-110 TESTED AT [address] (test rwsc=0118) [place] [address] POCT-GLUCOSE [id number] 11:40:00 Test Item Value Reference Range Comments POC-GLUCOSE METER (BEAKER) 208 mg/dL 70-110 TESTED AT [address] (test onql=2497) [place] [address] POCT-GLUCOSE [id number] 07:43:00 Test Item Value Reference Range Comments POC-GLUCOSE METER (BEAKER) 144 mg/dL 70-110 TESTED AT [address] (test gegt=2773) [place] [address] [id number] 04:52:00 Test Item Value Reference Range Comments MAGNESIUM (BEAKER) (test 2.0 mg/dL 1.6-2.6 Specimen slightly hemolyzed ifid=631) BASIC METABOLIC [id number] 04:52:00 Test Item Value Reference Range Comments SODIUM (BEAKER) (test 133 meq/L 136-145 awjy=969) POTASSIUM (BEAKER) (test 4.7 meq/L 3.5-5.1 Specimen slightly wrme=932) hemolyzed CHLORIDE (BEAKER) (test 97 meq/L 98-107 llct=766) CO2 (BEAKER) (test 25 meq/L 22-29 rbrg=921) BLOOD UREA NITROGEN 17 mg/dL 7-21 (BEAKER) (test jpej=646) CREATININE (BEAKER) (test 1.63 mg/dL 0.57-1.25 Specimen slightly ltwa=825) hemolyzed GLUCOSE RANDOM (BEAKER) 141 mg/dL 70-105 (test belt=779) CALCIUM (BEAKER) (test 9.8 mg/dL 8.4-10.2 mzbs=404) EGFR (BEAKER) (test 38 mL/min/1.73 sq m ESTIMATED GFR IS NOT tqfq=6025) ACCURATE CREATININE CLEARANCE IN PREDICTING GLOMERULAR FILTRATION RATE. ESTIMATED GFR IS NOT APPLICABLE FOR DIALYSIS PATIENTS. POCT-GLUCOSE [id number] 21:29:00 Test Item Value Reference Range Comments POC-GLUCOSE METER (BEAKER) 198 mg/dL 70-110 TESTED AT [address] (test hybn=2177) [place] [address] POCT-GLUCOSE [id number] 17:54:00 Test Item Value Reference Range Comments POC-GLUCOSE METER (BEAKER) 176 mg/dL 70-110 TESTED AT [address] (test txcm=4709) [place] [id number] POCT-GLUCOSE [id number] 07:05:00 Test Item Value Reference Range Comments POC-GLUCOSE METER (BEAKER) 137 mg/dL 70-110 TESTED AT [address] (test ovec=7347) [place] [address] [id number] 06:53:00 Test Item Value Reference Range Comments MAGNESIUM (BEAKER) (test dxjz=916) 2.0 mg/dL 1.6-2.6 BASIC METABOLIC [id number] 05:37:00 Test Item Value Reference Range Comments SODIUM (BEAKER) (test 136 meq/L 136-145 stco=496) POTASSIUM (BEAKER) (test 3.7 meq/L 3.5-5.1 btag=907) CHLORIDE (BEAKER) (test 97 meq/L 98-107 ppfy=921) CO2 (BEAKER) (test 30 meq/L 22-29 ntkp=301) BLOOD UREA NITROGEN 17 mg/dL 7-21 (BEAKER) (test dpmu=948) CREATININE (BEAKER) (test 1.60 mg/dL 0.57-1.25 wxkb=304) GLUCOSE RANDOM (BEAKER) 116 mg/dL 70-105 (test yjhu=650) CALCIUM (BEAKER) (test 9.4 mg/dL 8.4-10.2 daty=983) EGFR (BEAKER) (test 39 mL/min/1.73 sq m ESTIMATED GFR IS NOT hlhm=7299) ACCURATE CREATININE CLEARANCE IN PREDICTING GLOMERULAR FILTRATION RATE. ESTIMATED GFR IS NOT APPLICABLE FOR DIALYSIS PATIENTS. CBC W/PLT COUNT & AUTO [id number] 05:02:00 Test Item Value Reference Range Comments WHITE BLOOD CELL COUNT (BEAKER) (test sayz=329) 8.7 K/ L 3.5-10.5 RED BLOOD CELL COUNT (BEAKER) (test ijeg=396) 2.43 M/ L 3.93-5.22 HEMOGLOBIN (BEAKER) (test rojh=830) 7.5 GM/DL 11.2-15.7 HEMATOCRIT (BEAKER) (test hlvn=998) 24.1 % 34.1-44.9 MEAN CORPUSCULAR VOLUME (BEAKER) (test ddgs=076) 99.2 fL 79.4-94.8 MEAN CORPUSCULAR HEMOGLOBIN (BEAKER) (test 30.9 pg 25.6-32.2 atak=455) MEAN CORPUSCULAR HEMOGLOBIN CONC (BEAKER) (test 31.1 GM/DL 32.2-35.5 ebbm=018) RED CELL DISTRIBUTION WIDTH (BEAKER) (test 15.8 % 11.7-14.4 gclc=368) PLATELET COUNT (BEAKER) (test fefh=229) 586 K/CU MM 150-450 MEAN PLATELET VOLUME (BEAKER) (test ijzt=422) 9.5 fL 9.4-12.3 NUCLEATED RED BLOOD CELLS (BEAKER) (test 0 /100 WBC 0-0 ymwy=003) NEUTROPHILS RELATIVE PERCENT (BEAKER) (test 74 % hcgt=382) LYMPHOCYTES RELATIVE PERCENT (BEAKER) (test 15 % niqd=631) MONOCYTES RELATIVE PERCENT (BEAKER) (test 8 % jsoo=483) EOSINOPHILS RELATIVE PERCENT (BEAKER) (test 2 % dcop=205) BASOPHILS RELATIVE PERCENT (BEAKER) (test 1 % roxz=306) NEUTROPHILS ABSOLUTE COUNT (BEAKER) (test 6.41 K/ L 1.56-6.13 tgui=590) LYMPHOCYTES ABSOLUTE COUNT (BEAKER) (test 1.32 K/ L 1.18-3.74 jqyk=660) MONOCYTES ABSOLUTE COUNT (BEAKER) (test 0.65 K/ L 0.24-0.36 dnvv=098) EOSINOPHILS ABSOLUTE COUNT (BEAKER) (test 0.20 K/ L 0.04-0.36 jtzx=598) BASOPHILS ABSOLUTE COUNT (BEAKER) (test 0.08 K/ L 0.01-0.08 tnjc=432) IMMATURE GRANULOCYTES-RELATIVE PERCENT (BEAKER) 0 % 0-1 (test rcwr=7956) POCT-GLUCOSE [id number] 21:28:00 Test Item Value Reference Range Comments POC-GLUCOSE METER (BEAKER) 216 mg/dL 70-110 TESTED AT [address] (test ybpd=6193) [place] [address] POCT-GLUCOSE [id number] 18:25:00 Test Item Value Reference Range Comments POC-GLUCOSE METER (BEAKER) 182 mg/dL 70-110 TESTED AT [address] (test lavl=4166) [place] [id number] POCT-GLUCOSE [id number] 09:37:00 Test Item Value Reference Range Comments POC-GLUCOSE METER (BEAKER) 155 mg/dL 70-110 TESTED AT [address] (test tput=1474) [facility] [address] CALCIUM, [id number] 07:37:00 Test Item Value Reference Range Comments CALCIUM IONIZED (BEAKER) (test lxrc=170) 1.11 mmol/L 1.12-1.27 PH, BLOOD (BEAKER) (test nvxa=6640) 7.39 [id number] 07:10:00 Test Item Value Reference Range Comments FERRITIN (BEAKER) (test wumt=398) 445 ng/mL 5-275 IRON, TIBC, % SAT. (WITHOUT FERRITIN)2017-08-04 07:04:00 Test Item Value Reference Range Comments IRON (BEAKER) (test hvla=923) 55 ug/dL 40-160 TOTAL IRON BINDING CAPACITY (BEAKER) (test 198 ug/dL 250-450 ixki=458) IRON % SATURATION (2) (BEAKER) (test hvul=1723) 28 % 20-55 [id number] 06:57:00 Test Item Value Reference Range Comments PHOSPHORUS (BEAKER) (test blpx=918) 4.3 mg/dL 2.3-4.7 [id number] 06:57:00 Test Item Value Reference Range Comments MAGNESIUM (BEAKER) (test tdxr=343) 2.1 mg/dL 1.6-2.6 BASIC METABOLIC [id number] 06:57:00 Test Item Value Reference Range Comments SODIUM (BEAKER) (test 138 meq/L 136-145 mvoz=731) POTASSIUM (BEAKER) (test 3.8 meq/L 3.5-5.1 lrfi=993) CHLORIDE (BEAKER) (test 99 meq/L 98-107 suec=368) CO2 (BEAKER) (test 29 meq/L 22-29 ydyi=289) BLOOD UREA NITROGEN 18 mg/dL 7-21 (BEAKER) (test bwqa=134) CREATININE (BEAKER) (test 1.75 mg/dL 0.57-1.25 vtce=822) GLUCOSE RANDOM (BEAKER) 138 mg/dL 70-105 (test zgih=960) CALCIUM (BEAKER) (test 9.7 mg/dL 8.4-10.2 vnaa=144) EGFR (BEAKER) (test 35 mL/min/1.73 sq m ESTIMATED GFR IS NOT dmgd=2643) ACCURATE CREATININE CLEARANCE IN PREDICTING GLOMERULAR FILTRATION RATE. ESTIMATED GFR IS NOT APPLICABLE FOR DIALYSIS PATIENTS. B-TYPE NATRIURETIC FACTOR (BNP)2017-08-04 06:54:00 Test Item Value Reference Range Comments B-TYPE NATRIURETIC PEPTIDE (BEAKER) (test 778 pg/mL 0-100 obre=361) RETICULOCYTE [id number] 06:39:00 Test Item Value Reference Range Comments RETICULOCYTE COUNT PCT (BEAKER) (test uqhs=983) 8.3 % 0.5-1.7 CBC W/PLT COUNT & AUTO [id number] 06:39:00 Test Item Value Reference Range Comments WHITE BLOOD CELL COUNT (BEAKER) (test ktdo=964) 9.0 K/ L 3.5-10.5 RED BLOOD CELL COUNT (BEAKER) (test jngj=254) 2.55 M/ L 3.93-5.22 HEMOGLOBIN (BEAKER) (test ucfy=926) 7.8 GM/DL 11.2-15.7 HEMATOCRIT (BEAKER) (test fibh=611) 25.4 % 34.1-44.9 MEAN CORPUSCULAR VOLUME (BEAKER) (test veis=966) 99.6 fL 79.4-94.8 MEAN CORPUSCULAR HEMOGLOBIN (BEAKER) (test 30.6 pg 25.6-32.2 qirs=838) MEAN CORPUSCULAR HEMOGLOBIN CONC (BEAKER) (test 30.7 GM/DL 32.2-35.5 llhx=500) RED CELL DISTRIBUTION WIDTH (BEAKER) (test 15.9 % 11.7-14.4 sirp=035) PLATELET COUNT (BEAKER) (test pnsf=631) 591 K/CU MM 150-450 MEAN PLATELET VOLUME (BEAKER) (test smjj=203) 9.5 fL 9.4-12.3 NUCLEATED RED BLOOD CELLS (BEAKER) (test 0 /100 WBC 0-0 dvtx=319) NEUTROPHILS RELATIVE PERCENT (BEAKER) (test 77 % avsb=483) LYMPHOCYTES RELATIVE PERCENT (BEAKER) (test 13 % ukfy=369) MONOCYTES RELATIVE PERCENT (BEAKER) (test 7 % omja=960) EOSINOPHILS RELATIVE PERCENT (BEAKER) (test 2 % ruyy=813) BASOPHILS RELATIVE PERCENT (BEAKER) (test 1 % zhyu=304) NEUTROPHILS ABSOLUTE COUNT (BEAKER) (test 6.97 K/ L 1.56-6.13 kyrl=567) LYMPHOCYTES ABSOLUTE COUNT (BEAKER) (test 1.13 K/ L 1.18-3.74 lyhk=457) MONOCYTES ABSOLUTE COUNT (BEAKER) (test 0.65 K/ L 0.24-0.36 qcen=359) EOSINOPHILS ABSOLUTE COUNT (BEAKER) (test 0.18 K/ L 0.04-0.36 echw=121) BASOPHILS ABSOLUTE COUNT (BEAKER) (test 0.07 K/ L 0.01-0.08 jfvg=723) IMMATURE GRANULOCYTES-RELATIVE PERCENT (BEAKER) 0 % 0-1 (test poja=4639) POCT-GLUCOSE [id number] 20:56:00 Test Item Value Reference Range Comments POC-GLUCOSE METER (BEAKER) 167 mg/dL 70-110 TESTED AT [address] (test pxrz=6139) [place] [address] POCT-GLUCOSE [id number] 16:36:00 Test Item Value Reference Range Comments POC-GLUCOSE METER (BEAKER) 200 mg/dL 70-110 TESTED AT [address] (test qruc=7910) [place] [address] POCT-GLUCOSE [id number] 12:59:00 Test Item Value Reference Range Comments POC-GLUCOSE METER (BEAKER) 202 mg/dL 70-110 TESTED AT [address] (test vemm=9099) [place] [id number] POCT-GLUCOSE [id number] 07:37:00 Test Item Value Reference Range Comments POC-GLUCOSE METER (BEAKER) 154 mg/dL 70-110 TESTED AT [address] (test vnbv=0884) [place] [id number] CBC W/PLT COUNT & AUTO [id number] 06:49:00 Test Item Value Reference Range Comments WHITE BLOOD CELL COUNT (BEAKER) (test dppr=057) 9.8 K/ L 3.5-10.5 RED BLOOD CELL COUNT (BEAKER) (test gxea=968) 2.62 M/ L 3.93-5.22 HEMOGLOBIN (BEAKER) (test zchi=146) 8.1 GM/DL 11.2-15.7 HEMATOCRIT (BEAKER) (test fzsp=319) 25.9 % 34.1-44.9 MEAN CORPUSCULAR VOLUME (BEAKER) (test eaos=011) 98.9 fL 79.4-94.8 MEAN CORPUSCULAR HEMOGLOBIN (BEAKER) (test 30.9 pg 25.6-32.2 taub=580) MEAN CORPUSCULAR HEMOGLOBIN CONC (BEAKER) (test 31.3 GM/DL 32.2-35.5 rnmb=165) RED CELL DISTRIBUTION WIDTH (BEAKER) (test 15.8 % 11.7-14.4 omim=160) PLATELET COUNT (BEAKER) (test gugo=788) 667 K/CU MM 150-450 MEAN PLATELET VOLUME (BEAKER) (test vwsg=673) 9.4 fL 9.4-12.3 NUCLEATED RED BLOOD CELLS (BEAKER) (test 0 /100 WBC 0-0 jvjs=209) NEUTROPHILS RELATIVE PERCENT (BEAKER) (test 77 % skal=697) LYMPHOCYTES RELATIVE PERCENT (BEAKER) (test 13 % scrg=350) MONOCYTES RELATIVE PERCENT (BEAKER) (test 7 % egfi=476) EOSINOPHILS RELATIVE PERCENT (BEAKER) (test 2 % buve=714) BASOPHILS RELATIVE PERCENT (BEAKER) (test 1 % yxzh=824) NEUTROPHILS ABSOLUTE COUNT (BEAKER) (test 7.57 K/ L 1.56-6.13 kmjw=566) LYMPHOCYTES ABSOLUTE COUNT (BEAKER) (test 1.23 K/ L 1.18-3.74 kxjq=121) MONOCYTES ABSOLUTE COUNT (BEAKER) (test 0.69 K/ L 0.24-0.36 orih=292) EOSINOPHILS ABSOLUTE COUNT (BEAKER) (test 0.16 K/ L 0.04-0.36 gtsm=303) BASOPHILS ABSOLUTE COUNT (BEAKER) (test 0.08 K/ L 0.01-0.08 zhvv=073) IMMATURE GRANULOCYTES-RELATIVE PERCENT (BEAKER) 1 % 0-1 (test ipxk=2240) CALCIUM, [id number] 06:38:00 Test Item Value Reference Range Comments CALCIUM IONIZED (BEAKER) (test wunn=677) 1.07 mmol/L 1.12-1.27 PH, BLOOD (BEAKER) (test qbqg=7690) 7.42 [id number] 06:08:00 Test Item Value Reference Range Comments PHOSPHORUS (BEAKER) (test wxcl=560) 4.3 mg/dL 2.3-4.7 [id number] 06:08:00 Test Item Value Reference Range Comments MAGNESIUM (BEAKER) (test grtf=425) 2.4 mg/dL 1.6-2.6 BASIC METABOLIC [id number] 06:08:00 Test Item Value Reference Range Comments SODIUM (BEAKER) (test 138 meq/L 136-145 sveo=785) POTASSIUM (BEAKER) (test 4.0 meq/L 3.5-5.1 bots=652) CHLORIDE (BEAKER) (test 99 meq/L 98-107 hjym=346) CO2 (BEAKER) (test 29 meq/L 22-29 umtr=839) BLOOD UREA NITROGEN 15 mg/dL 7-21 (BEAKER) (test ijzi=907) CREATININE (BEAKER) (test 1.64 mg/dL 0.57-1.25 xgnz=825) GLUCOSE RANDOM (BEAKER) 135 mg/dL 70-105 (test tjbp=232) CALCIUM (BEAKER) (test 9.5 mg/dL 8.4-10.2 rbpq=263) EGFR (BEAKER) (test 38 mL/min/1.73 sq m ESTIMATED GFR IS NOT hblp=5728) ACCURATE CREATININE CLEARANCE IN PREDICTING GLOMERULAR FILTRATION RATE. ESTIMATED GFR IS NOT APPLICABLE FOR DIALYSIS PATIENTS. POCT-GLUCOSE [id number] 21:13:00 Test Item Value Reference Range Comments POC-GLUCOSE METER (BEAKER) 145 mg/dL 70-110 TESTED AT [address] (test qlto=1484) [place] [address] POCT-GLUCOSE [id number] 17:08:00 Test Item Value Reference Range Comments POC-GLUCOSE METER (BEAKER) 134 mg/dL 70-110 TESTED AT [address] (test cjmp=5122) [place] [id number] POCT-GLUCOSE [id number] 11:44:00 Test Item Value Reference Range Comments POC-GLUCOSE METER (BEAKER) 159 mg/dL 70-110 TESTED AT [address] (test wlad=1991) [place] [id number] POCT-GLUCOSE [id number] 08:07:00 Test Item Value Reference Range Comments POC-GLUCOSE METER (BEAKER) 152 mg/dL 70-110 TESTED AT [address] (test xwqf=9715) [place] [id number] CALCIUM, [id number] 05:26:00 Test Item Value Reference Range Comments CALCIUM IONIZED (BEAKER) (test crgu=486) 1.10 mmol/L 1.12-1.27 PH, BLOOD (BEAKER) (test dmrc=3137) 7.42 [id number] 05:05:00 Test Item Value Reference Range Comments PHOSPHORUS (BEAKER) (test dlej=257) 4.6 mg/dL 2.3-4.7 [id number] 05:05:00 Test Item Value Reference Range Comments MAGNESIUM (BEAKER) (test ebeo=113) 1.6 mg/dL 1.6-2.6 COMPREHENSIVE METABOLIC [id number] 05:05:00 Test Item Value Reference Range Comments TOTAL PROTEIN (BEAKER) 6.9 gm/dL 6.0-8.3 (test wjgw=688) ALBUMIN (BEAKER) (test 3.2 g/dL 3.5-5.0 tjvc=8347) ALKALINE PHOSPHATASE 55 U/L 40-150 (BEAKER) (test avwy=030) BILIRUBIN TOTAL (BEAKER) 0.6 mg/dL 0.2-1.2 (test glwq=084) SODIUM (BEAKER) (test 139 meq/L 136-145 paji=299) POTASSIUM (BEAKER) (test 3.9 meq/L 3.5-5.1 fela=655) CHLORIDE (BEAKER) (test 100 meq/L 98-107 hjdf=018) CO2 (BEAKER) (test 27 meq/L 22-29 kzpa=680) BLOOD UREA NITROGEN 15 mg/dL 7-21 (BEAKER) (test sunm=053) CREATININE (BEAKER) (test 1.55 mg/dL 0.57-1.25 xuwy=537) GLUCOSE RANDOM (BEAKER) 125 mg/dL 70-105 (test carf=842) CALCIUM (BEAKER) (test 9.2 mg/dL 8.4-10.2 uwij=173) AST (SGOT) (BEAKER) (test 16 U/L 5-34 amry=984) ALT (SGPT) (BEAKER) (test 11 U/L 6-55 wodq=063) EGFR (BEAKER) (test 40 mL/min/1.73 sq m ESTIMATED GFR IS NOT rjxb=1655) ACCURATE CREATININE CLEARANCE IN PREDICTING GLOMERULAR FILTRATION RATE. ESTIMATED GFR IS NOT APPLICABLE FOR DIALYSIS PATIENTS. CBC W/PLT COUNT & AUTO [id number] 04:57:00 Test Item Value Reference Range Comments WHITE BLOOD CELL COUNT (BEAKER) (test tpfw=078) 10.8 K/ L 3.5-10.5 RED BLOOD CELL COUNT (BEAKER) (test krnt=717) 2.57 M/ L 3.93-5.22 HEMOGLOBIN (BEAKER) (test nwxq=661) 7.9 GM/DL 11.2-15.7 HEMATOCRIT (BEAKER) (test urnw=774) 25.2 % 34.1-44.9 MEAN CORPUSCULAR VOLUME (BEAKER) (test oioq=463) 98.1 fL 79.4-94.8 MEAN CORPUSCULAR HEMOGLOBIN (BEAKER) (test 30.7 pg 25.6-32.2 ipny=911) MEAN CORPUSCULAR HEMOGLOBIN CONC (BEAKER) (test 31.3 GM/DL 32.2-35.5 sceo=466) RED CELL DISTRIBUTION WIDTH (BEAKER) (test 15.9 % 11.7-14.4 gksl=670) PLATELET COUNT (BEAKER) (test slyh=170) 623 K/CU MM 150-450 MEAN PLATELET VOLUME (BEAKER) (test uqqg=797) 9.4 fL 9.4-12.3 NUCLEATED RED BLOOD CELLS (BEAKER) (test 0 /100 WBC 0-0 ouja=715) NEUTROPHILS RELATIVE PERCENT (BEAKER) (test 79 % uzgc=337) LYMPHOCYTES RELATIVE PERCENT (BEAKER) (test 12 % nxsz=367) MONOCYTES RELATIVE PERCENT (BEAKER) (test 7 % onhn=861) EOSINOPHILS RELATIVE PERCENT (BEAKER) (test 2 % eaqk=397) BASOPHILS RELATIVE PERCENT (BEAKER) (test 1 % nvhx=922) NEUTROPHILS ABSOLUTE COUNT (BEAKER) (test 8.49 K/ L 1.56-6.13 yhgh=215) LYMPHOCYTES ABSOLUTE COUNT (BEAKER) (test 1.28 K/ L 1.18-3.74 yngn=382) MONOCYTES ABSOLUTE COUNT (BEAKER) (test 0.74 K/ L 0.24-0.36 ehyi=491) EOSINOPHILS ABSOLUTE COUNT (BEAKER) (test 0.18 K/ L 0.04-0.36 ampm=447) BASOPHILS ABSOLUTE COUNT (BEAKER) (test 0.05 K/ L 0.01-0.08 tnue=333) IMMATURE GRANULOCYTES-RELATIVE PERCENT (BEAKER) 1 % 0-1 (test prvb=1472) POCT-GLUCOSE [id number] 01:29:00 Test Item Value Reference Range Comments POC-GLUCOSE METER (BEAKER) 182 mg/dL 70-110 TESTED AT [address] (test ajsl=2292) [place] [id number] POCT-GLUCOSE [id number] 22:32:00 Test Item Value Reference Range Comments POC-GLUCOSE METER (BEAKER) 204 mg/dL 70-110 TESTED AT [address] (test xcyv=1228) [place] [address] POCT-GLUCOSE [id number] 18:53:00 Test Item Value Reference Range Comments POC-GLUCOSE METER (BEAKER) 154 mg/dL 70-110 TESTED AT [address] (test itxu=2063) [place] [address] POCT-GLUCOSE [id number] 15:50:00 Test Item Value Reference Range Comments POC-GLUCOSE METER (BEAKER) 172 mg/dL 70-110 TESTED AT [address] (test ttuc=0528) [place] [address] B-TYPE NATRIURETIC FACTOR (BNP)2017-08-01 15:41:00 Test Item Value Reference Range Comments B-TYPE NATRIURETIC PEPTIDE (BEAKER) (test 1253 pg/mL 0-100 rqtm=189) RAD, CHEST, 1 VIEW, NON [id number] 15:00:00Reason for exam:->SOBShould this be performed at the bedside?->YesFINAL REPORT Chest one view compared to July 28, 2017 Discussion: There is cardiac prominence. Lungs are grossly clear. No effusion or pneumothorax. There is either hiatal hernia or aortic tortuosity. IMPRESSIONS: No significant change. Signed: Tony Hsu Verified Date/Time: 08/01/2017 15:00:05 Reading Location: [facility] [id number] Consult Reading Room Electronicallysigned by: TONY HSU M.D. on 08/01/2017 03:00 PMPOCT-GLUCOSE [id number] 09:28:00 Test Item Value Reference Range Comments POC-GLUCOSE METER (BEAKER) 155 mg/dL 70-110 TESTED AT [address] (test dkgk=1122) [place] [address] BASIC METABOLIC [id number] 08:00:00 Test Item Value Reference Range Comments SODIUM (BEAKER) (test 138 meq/L 136-145 zewm=133) POTASSIUM (BEAKER) (test 3.8 meq/L 3.5-5.1 ixzv=669) CHLORIDE (BEAKER) (test 100 meq/L 98-107 ypki=710) CO2 (BEAKER) (test 27 meq/L 22-29 jxxy=636) BLOOD UREA NITROGEN 14 mg/dL 7-21 (BEAKER) (test fxec=229) CREATININE (BEAKER) (test 1.47 mg/dL 0.57-1.25 jnwl=837) GLUCOSE RANDOM (BEAKER) 150 mg/dL 70-105 (test dedj=899) CALCIUM (BEAKER) (test 9.0 mg/dL 8.4-10.2 jmwe=024) EGFR (BEAKER) (test 43 mL/min/1.73 sq m ESTIMATED GFR IS NOT noxs=4131) ACCURATE CREATININE CLEARANCE IN PREDICTING GLOMERULAR FILTRATION RATE. ESTIMATED GFR IS NOT APPLICABLE FOR DIALYSIS PATIENTS. CBC W/PLT COUNT & AUTO [id number] 07:54:00 Test Item Value Reference Range Comments WHITE BLOOD CELL COUNT (BEAKER) (test ncif=235) 12.4 K/ L 3.5-10.5 RED BLOOD CELL COUNT (BEAKER) (test iidz=256) 2.57 M/ L 3.93-5.22 HEMOGLOBIN (BEAKER) (test pbyw=372) 7.7 GM/DL 11.2-15.7 HEMATOCRIT (BEAKER) (test igep=300) 25.0 % 34.1-44.9 MEAN CORPUSCULAR VOLUME (BEAKER) (test oiys=653) 97.3 fL 79.4-94.8 MEAN CORPUSCULAR HEMOGLOBIN (BEAKER) (test 30.0 pg 25.6-32.2 lipr=712) MEAN CORPUSCULAR HEMOGLOBIN CONC (BEAKER) (test 30.8 GM/DL 32.2-35.5 xffp=573) RED CELL DISTRIBUTION WIDTH (BEAKER) (test 15.8 % 11.7-14.4 zlhm=116) PLATELET COUNT (BEAKER) (test pkgi=501) 582 K/CU MM 150-450 MEAN PLATELET VOLUME (BEAKER) (test iwmw=035) 9.5 fL 9.4-12.3 NUCLEATED RED BLOOD CELLS (BEAKER) (test 0 /100 WBC 0-0 mrki=007) NEUTROPHILS RELATIVE PERCENT (BEAKER) (test 82 % ejup=159) LYMPHOCYTES RELATIVE PERCENT (BEAKER) (test 10 % oshm=768) MONOCYTES RELATIVE PERCENT (BEAKER) (test 6 % quea=918) EOSINOPHILS RELATIVE PERCENT (BEAKER) (test 1 % wonx=661) BASOPHILS RELATIVE PERCENT (BEAKER) (test 1 % nxxp=809) NEUTROPHILS ABSOLUTE COUNT (BEAKER) (test 10.08 K/ L 1.56-6.13 fbox=247) LYMPHOCYTES ABSOLUTE COUNT (BEAKER) (test 1.19 K/ L 1.18-3.74 vkmg=508) MONOCYTES ABSOLUTE COUNT (BEAKER) (test 0.74 K/ L 0.24-0.36 pqoj=161) EOSINOPHILS ABSOLUTE COUNT (BEAKER) (test 0.16 K/ L 0.04-0.36 cdpn=059) BASOPHILS ABSOLUTE COUNT (BEAKER) (test 0.10 K/ L 0.01-0.08 blbz=914) IMMATURE GRANULOCYTES-RELATIVE PERCENT (BEAKER) 1 % 0-1 (test mpdj=7594) POCT-GLUCOSE [id number] 21:34:00 Test Item Value Reference Range Comments POC-GLUCOSE METER (BEAKER) 153 mg/dL 70-110 TESTED AT [address] (test qtxq=9474) [place] [address] POCT-GLUCOSE [id number] 17:34:00 Test Item Value Reference Range Comments POC-GLUCOSE METER (BEAKER) 165 mg/dL 70-110 TESTED AT [address] (test tdbq=3243) [place] [address] POCT-GLUCOSE [id number] 14:33:00 Test Item Value Reference Range Comments POC-GLUCOSE METER (BEAKER) 208 mg/dL 70-110 TESTED AT [address] (test xdzp=6920) [place] [address] POCT-GLUCOSE [id number] 12:54:00 Test Item Value Reference Range Comments POC-GLUCOSE METER (BEAKER) 218 mg/dL 70-110 TESTED AT [address] (test uvya=7587) [place] [address] POCT-GLUCOSE [id number] 10:34:00 Test Item Value Reference Range Comments POC-GLUCOSE METER (BEAKER) 204 mg/dL 70-110 TESTED AT [facility] [address] [facility] (test ycgk=3528) [facility] [address] POCT-GLUCOSE [id number] 08:41:00 Test Item Value Reference Range Comments POC-GLUCOSE METER (BEAKER) 201 mg/dL 70-110 TESTED AT [facility] [address] [facility] (test mcpp=5288) [facility] [address] [id number] 05:54:00 Test Item Value Reference Range Comments MAGNESIUM (BEAKER) (test vyug=291) 1.8 mg/dL 1.6-2.6 BASIC METABOLIC [id number] 05:54:00 Test Item Value Reference Range Comments SODIUM (BEAKER) (test 138 meq/L 136-145 aire=305) POTASSIUM (BEAKER) (test 3.6 meq/L 3.5-5.1 pvzl=941) CHLORIDE (BEAKER) (test 100 meq/L 98-107 dyky=282) CO2 (BEAKER) (test 25 meq/L 22-29 rioo=931) BLOOD UREA NITROGEN 14 mg/dL 7-21 (BEAKER) (test urwh=367) CREATININE (BEAKER) (test 1.42 mg/dL 0.57-1.25 jrli=997) GLUCOSE RANDOM (BEAKER) 145 mg/dL 70-105 (test lfcf=827) CALCIUM (BEAKER) (test 9.4 mg/dL 8.4-10.2 xwjm=722) EGFR (BEAKER) (test 44 mL/min/1.73 sq m ESTIMATED GFR IS NOT jgph=3898) ACCURATE CREATININE CLEARANCE IN PREDICTING GLOMERULAR FILTRATION RATE. ESTIMATED GFR IS NOT APPLICABLE FOR DIALYSIS PATIENTS. CBC (HEMOGRAM ONLY)2017-07-31 05:42:00 Test Item Value Reference Range Comments WHITE BLOOD CELL COUNT (BEAKER) (test gqfn=189) 13.3 K/ L 3.5-10.5 RED BLOOD CELL COUNT (BEAKER) (test gpsi=741) 2.65 M/ L 3.93-5.22 HEMOGLOBIN (BEAKER) (test ltkc=800) 7.9 GM/DL 11.2-15.7 HEMATOCRIT (BEAKER) (test extr=556) 25.9 % 34.1-44.9 MEAN CORPUSCULAR VOLUME (BEAKER) (test iwww=247) 97.7 fL 79.4-94.8 MEAN CORPUSCULAR HEMOGLOBIN (BEAKER) (test 29.8 pg 25.6-32.2 srrz=231) MEAN CORPUSCULAR HEMOGLOBIN CONC (BEAKER) (test 30.5 GM/DL 32.2-35.5 amsi=387) RED CELL DISTRIBUTION WIDTH (BEAKER) (test 15.3 % 11.7-14.4 ldyb=625) PLATELET COUNT (BEAKER) (test jont=842) 580 K/CU MM 150-450 MEAN PLATELET VOLUME (BEAKER) (test lvls=193) 9.7 fL 9.4-12.3 NUCLEATED RED BLOOD CELLS (BEAKER) (test 0 /100 WBC 0-0 hfej=630) POCT-GLUCOSE [id number] 21:21:00 Test Item Value Reference Range Comments POC-GLUCOSE METER (BEAKER) 206 mg/dL 70-110 TESTED AT [address] (test gaxl=8717) [place] [id number] POCT-GLUCOSE [id number] 17:50:00 Test Item Value Reference Range Comments POC-GLUCOSE METER (BEAKER) 160 mg/dL 70-110 TESTED AT [address] (test xdmg=2234) [place] [id number] POCT-GLUCOSE [id number] 12:12:00 Test Item Value Reference Range Comments POC-GLUCOSE METER (BEAKER) 214 mg/dL 70-110 TESTED AT [address] (test jofs=6857) [place] [id number] POCT-GLUCOSE [id number] 07:59:00 Test Item Value Reference Range Comments POC-GLUCOSE METER (BEAKER) 146 mg/dL 70-110 TESTED AT [address] (test bhvo=7568) [facility] [address] CALCIUM, [id number] 07:23:00 Test Item Value Reference Range Comments CALCIUM IONIZED (BEAKER) (test swjp=476) 1.11 mmol/L 1.12-1.27 PH, BLOOD (BEAKER) (test xkio=6733) 7.42 [id number] 07:07:00 Test Item Value Reference Range Comments PHOSPHORUS (BEAKER) (test ouvy=645) 3.5 mg/dL 2.3-4.7 [id number] 07:07:00 Test Item Value Reference Range Comments MAGNESIUM (BEAKER) (test ilfg=807) 1.8 mg/dL 1.6-2.6 COMPREHENSIVE METABOLIC [id number] 07:07:00 Test Item Value Reference Range Comments TOTAL PROTEIN (BEAKER) 6.7 gm/dL 6.0-8.3 (test hgbv=676) ALBUMIN (BEAKER) (test 3.1 g/dL 3.5-5.0 svdu=6845) ALKALINE PHOSPHATASE 53 U/L 40-150 (BEAKER) (test wfbj=418) BILIRUBIN TOTAL (BEAKER) 0.6 mg/dL 0.2-1.2 (test xnju=472) SODIUM (BEAKER) (test 139 meq/L 136-145 lunq=341) POTASSIUM (BEAKER) (test 4.0 meq/L 3.5-5.1 zobu=288) CHLORIDE (BEAKER) (test 103 meq/L 98-107 wsgk=517) CO2 (BEAKER) (test 27 meq/L 22-29 sear=213) BLOOD UREA NITROGEN 16 mg/dL 7-21 (BEAKER) (test oknv=274) CREATININE (BEAKER) (test 1.34 mg/dL 0.57-1.25 imyr=221) GLUCOSE RANDOM (BEAKER) 116 mg/dL 70-105 (test ggjh=414) CALCIUM (BEAKER) (test 9.2 mg/dL 8.4-10.2 usgk=905) AST (SGOT) (BEAKER) (test 15 U/L 5-34 hdtl=365) ALT (SGPT) (BEAKER) (test 11 U/L 6-55 edie=010) EGFR (BEAKER) (test 47 mL/min/1.73 sq m ESTIMATED GFR IS NOT irtg=6386) ACCURATE CREATININE CLEARANCE IN PREDICTING GLOMERULAR FILTRATION RATE. ESTIMATED GFR IS NOT APPLICABLE FOR DIALYSIS PATIENTS. CBC W/PLT COUNT & AUTO [id number] 06:52:00 Test Item Value Reference Range Comments WHITE BLOOD CELL COUNT (BEAKER) (test nnqa=248) 12.8 K/ L 3.5-10.5 RED BLOOD CELL COUNT (BEAKER) (test gkby=290) 2.43 M/ L 3.93-5.22 HEMOGLOBIN (BEAKER) (test wkwx=996) 7.2 GM/DL 11.2-15.7 HEMATOCRIT (BEAKER) (test ssdj=566) 23.8 % 34.1-44.9 MEAN CORPUSCULAR VOLUME (BEAKER) (test nkmi=480) 97.9 fL 79.4-94.8 MEAN CORPUSCULAR HEMOGLOBIN (BEAKER) (test 29.6 pg 25.6-32.2 rxiz=880) MEAN CORPUSCULAR HEMOGLOBIN CONC (BEAKER) (test 30.3 GM/DL 32.2-35.5 ztow=927) RED CELL DISTRIBUTION WIDTH (BEAKER) (test 15.0 % 11.7-14.4 zxcn=768) PLATELET COUNT (BEAKER) (test ktng=808) 456 K/CU MM 150-450 MEAN PLATELET VOLUME (BEAKER) (test xcem=812) 10.3 fL 9.4-12.3 NUCLEATED RED BLOOD CELLS (BEAKER) (test 0 /100 WBC 0-0 ihha=597) NEUTROPHILS RELATIVE PERCENT (BEAKER) (test 82 % jfxw=553) LYMPHOCYTES RELATIVE PERCENT (BEAKER) (test 9 % yrfs=236) MONOCYTES RELATIVE PERCENT (BEAKER) (test 6 % mewq=707) EOSINOPHILS RELATIVE PERCENT (BEAKER) (test 2 % xdco=327) BASOPHILS RELATIVE PERCENT (BEAKER) (test 0 % sqdg=938) NEUTROPHILS ABSOLUTE COUNT (BEAKER) (test 10.52 K/ L 1.56-6.13 mezt=166) LYMPHOCYTES ABSOLUTE COUNT (BEAKER) (test 1.19 K/ L 1.18-3.74 oknu=023) MONOCYTES ABSOLUTE COUNT (BEAKER) (test 0.73 K/ L 0.24-0.36 aarm=750) EOSINOPHILS ABSOLUTE COUNT (BEAKER) (test 0.22 K/ L 0.04-0.36 soni=946) BASOPHILS ABSOLUTE COUNT (BEAKER) (test 0.04 K/ L 0.01-0.08 nawv=277) IMMATURE GRANULOCYTES-RELATIVE PERCENT (BEAKER) 1 % 0-1 (test phkh=4079) POCT-GLUCOSE [id number] 21:47:00 Test Item Value Reference Range Comments POC-GLUCOSE METER (BEAKER) 106 mg/dL 70-110 TESTED AT [address] (test drfv=8028) [place] [id number] POCT-GLUCOSE [id number] 18:50:00 Test Item Value Reference Range Comments POC-GLUCOSE METER (BEAKER) 175 mg/dL 70-110 TESTED AT [address] (test ftbb=4235) [place] [id number] [id number] 15:18:00 Test Item Value Reference Range Comments POTASSIUM (BEAKER) (test pisl=109) 3.7 meq/L 3.5-5.1 [id number] 15:18:00 Test Item Value Reference Range Comments MAGNESIUM (BEAKER) (test jsbk=628) 2.2 mg/dL 1.6-2.6 POCT-GLUCOSE [id number] 11:48:00 Test Item Value Reference Range Comments POC-GLUCOSE METER (BEAKER) 131 mg/dL 70-110 TESTED AT [address] (test przg=6039) [place] [address] BLOOD GAS, [id number] 11:46:00 Test Item Value Reference Range Comments PH ARTERIAL (BEAKER) (test xdhs=214) 7.43 7.35-7.45 PCO2 ARTERIAL (BEAKER) (test fiwh=379) 46 mmHg 35-45 PO2 ARTERIAL (BEAKER) (test qplx=063) 83 mmHg 80-90 O2 SATURATION ARTERIAL (BEAKER) (test njqh=579) 96.5 % 96.0-97.0 HCO3 ARTERIAL (BEAKER) (test eymz=206) 30 mmol/L 21-29 BASE EXCESS ARTERIAL (BEAKER) (test hscv=291) 4.8 mmol/L -2.0-3.0 PATIENT TEMPERATURE (BEAKER) (test runf=5156) 36.9 C FIO2 (BEAKER) (test qamz=8037) 36.0 % POCT-GLUCOSE [id number] 08:29:00 Test Item Value Reference Range Comments POC-GLUCOSE METER (BEAKER) 129 mg/dL 70-110 TESTED AT [address] (test roxx=3686) [place] [id number] CALCIUM, [id number] 04:18:00 Test Item Value Reference Range Comments CALCIUM IONIZED (BEAKER) (test nptt=834) 1.11 mmol/L 1.12-1.27 PH, BLOOD (BEAKER) (test tsws=3123) 7.40 B-TYPE NATRIURETIC FACTOR (BNP)2017-07-29 04:06:00 Test Item Value Reference Range Comments B-TYPE NATRIURETIC PEPTIDE (BEAKER) (test 982 pg/mL 0-100 csdl=027) [id number] 03:59:00 Test Item Value Reference Range Comments PHOSPHORUS (BEAKER) (test yofp=472) 3.6 mg/dL 2.3-4.7 [id number] 03:59:00 Test Item Value Reference Range Comments MAGNESIUM (BEAKER) (test embi=187) 1.9 mg/dL 1.6-2.6 BASIC METABOLIC [id number] 03:59:00 Test Item Value Reference Range Comments SODIUM (BEAKER) (test 141 meq/L 136-145 rshs=287) POTASSIUM (BEAKER) (test 3.1 meq/L 3.5-5.1 ebof=969) CHLORIDE (BEAKER) (test 103 meq/L 98-107 ksjy=199) CO2 (BEAKER) (test 26 meq/L 22-29 knem=677) BLOOD UREA NITROGEN 17 mg/dL 7-21 (BEAKER) (test hfah=504) CREATININE (BEAKER) (test 1.43 mg/dL 0.57-1.25 dumg=554) GLUCOSE RANDOM (BEAKER) 110 mg/dL 70-105 (test zkxg=815) CALCIUM (BEAKER) (test 9.0 mg/dL 8.4-10.2 xzgw=903) EGFR (BEAKER) (test 44 mL/min/1.73 sq m ESTIMATED GFR IS NOT eeft=9016) ACCURATE CREATININE CLEARANCE IN PREDICTING GLOMERULAR FILTRATION RATE. ESTIMATED GFR IS NOT APPLICABLE FOR DIALYSIS PATIENTS. CBC (HEMOGRAM ONLY)2017-07-29 03:51:00 Test Item Value Reference Range Comments WHITE BLOOD CELL COUNT (BEAKER) (test qkie=995) 12.2 K/ L 3.5-10.5 RED BLOOD CELL COUNT (BEAKER) (test iupk=006) 2.48 M/ L 3.93-5.22 HEMOGLOBIN (BEAKER) (test qwjv=419) 7.4 GM/DL 11.2-15.7 HEMATOCRIT (BEAKER) (test nnvw=264) 24.2 % 34.1-44.9 MEAN CORPUSCULAR VOLUME (BEAKER) (test xfsb=998) 97.6 fL 79.4-94.8 MEAN CORPUSCULAR HEMOGLOBIN (BEAKER) (test 29.8 pg 25.6-32.2 vsac=107) MEAN CORPUSCULAR HEMOGLOBIN CONC (BEAKER) (test 30.6 GM/DL 32.2-35.5 srkg=154) RED CELL DISTRIBUTION WIDTH (BEAKER) (test 15.1 % 11.7-14.4 qosg=394) PLATELET COUNT (BEAKER) (test dowr=803) 410 K/CU MM 150-450 MEAN PLATELET VOLUME (BEAKER) (test makn=637) 10.2 fL 9.4-12.3 NUCLEATED RED BLOOD CELLS (BEAKER) (test 0 /100 WBC 0-0 edqc=118) POCT-GLUCOSE [id number] 23:55:00 Test Item Value Reference Range Comments POC-GLUCOSE METER (BEAKER) 164 mg/dL 70-110 TESTED AT [address] (test ndav=1590) [facility] [address] HERPES VIRUS ANTIBODY, [id number] 11:02:00 Test Item Value Reference Range Comments HERPES VIRUS IGM (BEAKER) (test jrvy=9974) Negative HSV IgM 1=NEGATIVEHSV IgM 2=NEGATIVETOXOPLASMA GONDII ANTIBODY, [id number] 11 :02:00 Test Item Value Reference Range Comments TOXOPLASMA IGM ANTIBODY (BEAKER) (test xkhn=085) Negative RAD, CHEST, 1 VIEW, NON [id number] 10:48:00Reason for exam:->acute respiratory insufficiencyShould this be [...] 07/28/2017 10:48:24 Reading Location: [facility] Radiology Reading Room [id number] 05:13:00 Test Item Value Reference Range Comments PHOSPHORUS (BEAKER) (test ajhq=699) 3.3 mg/dL 2.3-4.7 [id number] 05:13:00 Test Item Value Reference Range Comments MAGNESIUM (BEAKER) (test lucb=899) 1.9 mg/dL 1.6-2.6 HEPATIC FUNCTION [id number] 05:13:00 Test Item Value Reference Range Comments TOTAL PROTEIN (BEAKER) (test ufzo=217) 7.5 gm/dL 6.0-8.3 ALBUMIN (BEAKER) (test hodr=5164) 3.6 g/dL 3.5-5.0 BILIRUBIN TOTAL (BEAKER) (test pguj=311) 0.9 mg/dL 0.2-1.2 BILIRUBIN DIRECT (BEAKER) (test bvyj=691) 0.4 mg/dL 0.1-0.5 ALKALINE PHOSPHATASE (BEAKER) (test zhkq=096) 66 U/L 40-150 AST (SGOT) (BEAKER) (test xfvl=307) 21 U/L 5-34 ALT (SGPT) (BEAKER) (test psce=690) 17 U/L 6-55 COMPREHENSIVE METABOLIC [id number] 05:13:00 Test Item Value Reference Range Comments TOTAL PROTEIN (BEAKER) 7.5 gm/dL 6.0-8.3 (test ylpz=224) ALBUMIN (BEAKER) (test 3.6 g/dL 3.5-5.0 vnmg=4021) ALKALINE PHOSPHATASE 66 U/L 40-150 (BEAKER) (test tuer=972) BILIRUBIN TOTAL (BEAKER) 0.9 mg/dL 0.2-1.2 (test mens=317) SODIUM (BEAKER) (test 143 meq/L 136-145 bere=355) POTASSIUM (BEAKER) (test 3.5 meq/L 3.5-5.1 wjny=090) CHLORIDE (BEAKER) (test 105 meq/L 98-107 biln=483) CO2 (BEAKER) (test 25 meq/L 22-29 fvsq=295) BLOOD UREA NITROGEN 18 mg/dL 7-21 (BEAKER) (test qwzh=969) CREATININE (BEAKER) (test 1.43 mg/dL 0.57-1.25 hfyj=429) GLUCOSE RANDOM (BEAKER) 130 mg/dL 70-105 (test nmdx=058) CALCIUM (BEAKER) (test 9.6 mg/dL 8.4-10.2 roae=978) AST (SGOT) (BEAKER) (test 21 U/L 5-34 nlke=693) ALT (SGPT) (BEAKER) (test 17 U/L 6-55 vxwq=638) EGFR (BEAKER) (test 44 mL/min/1.73 sq m ESTIMATED GFR IS NOT oiln=2610) ACCURATE CREATININE CLEARANCE IN PREDICTING GLOMERULAR FILTRATION RATE. ESTIMATED GFR IS NOT APPLICABLE FOR DIALYSIS PATIENTS. LACTATE DEHYDROGENASE (LDH)2017-07-28 05:13:00 Test Item Value Reference Range Comments LACTATE DEHYDROGENASE (BEAKER) (test ehrb=537) 639 U/L 125-220 CBC W/PLT COUNT & AUTO [id number] 04:57:00 Test Item Value Reference Range Comments WHITE BLOOD CELL COUNT (BEAKER) (test lcgg=131) 13.6 K/ L 3.5-10.5 RED BLOOD CELL COUNT (BEAKER) (test crej=520) 2.86 M/ L 3.93-5.22 HEMOGLOBIN (BEAKER) (test tlsb=228) 8.5 GM/DL 11.2-15.7 HEMATOCRIT (BEAKER) (test lsmh=941) 28.9 % 34.1-44.9 MEAN CORPUSCULAR VOLUME (BEAKER) (test kaft=819) 101.0 fL 79.4-94.8 MEAN CORPUSCULAR HEMOGLOBIN (BEAKER) (test 29.7 pg 25.6-32.2 ybfo=714) MEAN CORPUSCULAR HEMOGLOBIN CONC (BEAKER) (test 29.4 GM/DL 32.2-35.5 efwx=331) RED CELL DISTRIBUTION WIDTH (BEAKER) (test 15.2 % 11.7-14.4 ptso=982) PLATELET COUNT (BEAKER) (test izyl=549) 375 K/CU MM 150-450 MEAN PLATELET VOLUME (BEAKER) (test rzdu=181) 10.7 fL 9.4-12.3 NUCLEATED RED BLOOD CELLS (BEAKER) (test 0 /100 WBC 0-0 krws=872) NEUTROPHILS RELATIVE PERCENT (BEAKER) (test 82 % tank=638) LYMPHOCYTES RELATIVE PERCENT (BEAKER) (test 9 % nldf=171) MONOCYTES RELATIVE PERCENT (BEAKER) (test 6 % npwm=101) EOSINOPHILS RELATIVE PERCENT (BEAKER) (test 2 % khqn=665) BASOPHILS RELATIVE PERCENT (BEAKER) (test 1 % eslw=921) NEUTROPHILS ABSOLUTE COUNT (BEAKER) (test 11.11 K/ L 1.56-6.13 wkoe=322) LYMPHOCYTES ABSOLUTE COUNT (BEAKER) (test 1.17 K/ L 1.18-3.74 jqnb=533) MONOCYTES ABSOLUTE COUNT (BEAKER) (test 0.83 K/ L 0.24-0.36 lsiv=987) EOSINOPHILS ABSOLUTE COUNT (BEAKER) (test 0.25 K/ L 0.04-0.36 glbx=960) BASOPHILS ABSOLUTE COUNT (BEAKER) (test 0.07 K/ L 0.01-0.08 hzln=970) IMMATURE GRANULOCYTES-RELATIVE PERCENT (BEAKER) 1 % 0-1 (test pcpe=6087) OCCULT BLOOD, [id number] 01:02:00 Test Item Value Reference Range Comments FECAL OCCULT BLOOD (BEAKER) (test sgoc=559) Negative Negative POCT-GLUCOSE [id number] 00:46:00 Test Item Value Reference Range Comments POC-GLUCOSE METER (BEAKER) 149 mg/dL 70-110 TESTED AT [address] (test ljdg=4551) [facility] [address] C. DIFFICILE GDH [id number] 19:51:00 Test Item Value Reference Range Comments CDT TOXIN (test Negative Negative nqtm=[id number]) CDT GDH ANTIGEN (test Negative Negative No indication of Clostridium ozii=[id number]) difficile infection and no colonization. Discontinue enteric isolation and therapy. Testing performed by mParticle Rapid Cassette Assay. For GDH, published sensitivity of the assay is 98.7% compared to cytotoxicity testing. For Toxin AB, published sensitivity is 87.8% and specificity 99.4% compared to cytotoxicity testing.Verification of kit performance was done by the [facility] Microbiology Lab prior to clinical use.POCT-GLUCOSE [id number] 18:11:00 Test Item Value Reference Range Comments POC-GLUCOSE METER (BEAKER) 201 mg/dL 70-110 TESTED AT [address] (test mjsp=7028) [facility] [address] BLOOD GAS, [id number] 17:03:00 Test Item Value Reference Range Comments PH ARTERIAL (BEAKER) (test strw=851) 7.41 7.35-7.45 PCO2 ARTERIAL (BEAKER) (test nuyy=704) 45 mmHg 35-45 PO2 ARTERIAL (BEAKER) (test yagk=564) 94 mmHg 80-90 O2 SATURATION ARTERIAL (BEAKER) (test udth=390) 97.3 % 96.0-97.0 HCO3 ARTERIAL (BEAKER) (test jlfg=233) 28 mmol/L 21-29 BASE EXCESS ARTERIAL (BEAKER) (test dnmc=048) 2.3 mmol/L -2.0-3.0 PATIENT TEMPERATURE (BEAKER) (test yhai=6723) 36.6 C FIO2 (BEAKER) (test zucj=1164) 40.0 % POCT-GLUCOSE [id number] 12:44:00 Test Item Value Reference Range Comments POC-GLUCOSE METER (BEAKER) 117 mg/dL 70-110 TESTED AT [address] (test sjsq=3806) [facility] [address] B-TYPE NATRIURETIC FACTOR (BNP)2017-07-27 11:13:00 Test Item Value Reference Range Comments B-TYPE NATRIURETIC PEPTIDE (BEAKER) (test 1198 pg/mL 0-100 bnor=709) LACTIC ACID, VENOUS, WHOLE [id number] 11:12:00 Test Item Value Reference Range Comments LACTATE BLOOD VENOUS (2) (BEAKER) (test 0.7 mmol/L 0.5-2.2 auyf=5572) Effective 08/06/2015: Units/Reference Range ChangeNew: 0.5-2.2 mmol/L Previous: 5 -20 mg/dLOXYGEN SATURATION, [id number] 10:28:00 Test Item Value Reference Range Comments O2 SATURATION (MEASURED) (BEAKER) (test jodk=7664) 59.6 % RAD, CHEST, 1 VIEW, NON [id number] 08:23:00Reason for exam:->acute respiratory insufficiencyShould this be [...] Verified Date/Time: 07/27/2017 08:23 :08 Reading Location: [facility] Radiology Reading Room POCT-GLUCOSE [id number] 07:53:00 Test Item Value Reference Range Comments POC-GLUCOSE METER (BEAKER) 124 mg/dL 70-110 TESTED AT [facility] [address] [place] [address] (test cuwf=2610) [facility] [address] BASIC METABOLIC [id number] 06:33:00 Test Item Value Reference Range Comments SODIUM (BEAKER) (test 144 meq/L 136-145 kjsv=785) POTASSIUM (BEAKER) (test 3.8 meq/L 3.5-5.1 kjov=228) CHLORIDE (BEAKER) (test 109 meq/L 98-107 hnxu=382) CO2 (BEAKER) (test 24 meq/L 22-29 brzd=495) BLOOD UREA NITROGEN 20 mg/dL 7-21 (BEAKER) (test ljmh=062) CREATININE (BEAKER) (test 1.40 mg/dL 0.57-1.25 aubo=736) GLUCOSE RANDOM (BEAKER) 111 mg/dL 70-105 (test roit=721) CALCIUM (BEAKER) (test 8.8 mg/dL 8.4-10.2 mqio=312) EGFR (BEAKER) (test 45 mL/min/1.73 sq m ESTIMATED GFR IS NOT tnsh=1245) ACCURATE CREATININE CLEARANCE IN PREDICTING GLOMERULAR FILTRATION RATE. ESTIMATED GFR IS NOT APPLICABLE FOR DIALYSIS PATIENTS. [id number] 06:24:00 Test Item Value Reference Range Comments PHOSPHORUS (BEAKER) (test wlme=843) 3.3 mg/dL 2.3-4.7 BASIC METABOLIC [id number] 06:24:00 Test Item Value Reference Range Comments SODIUM (BEAKER) (test 145 meq/L 136-145 tnvs=475) POTASSIUM (BEAKER) (test 3.8 meq/L 3.5-5.1 mihq=468) CHLORIDE (BEAKER) (test 110 meq/L 98-107 ltfq=768) CO2 (BEAKER) (test 24 meq/L 22-29 vtyi=652) BLOOD UREA NITROGEN 21 mg/dL 7-21 (BEAKER) (test zhqc=927) CREATININE (BEAKER) (test 1.39 mg/dL 0.57-1.25 yzoa=146) GLUCOSE RANDOM (BEAKER) 112 mg/dL 70-105 (test yvyf=296) CALCIUM (BEAKER) (test 8.9 mg/dL 8.4-10.2 mlca=698) EGFR (BEAKER) (test 45 mL/min/1.73 sq m ESTIMATED GFR IS NOT dlxa=7525) ACCURATE CREATININE CLEARANCE IN PREDICTING GLOMERULAR FILTRATION RATE. ESTIMATED GFR IS NOT APPLICABLE FOR DIALYSIS PATIENTS. [id number] 03:27:00 Test Item Value Reference Range Comments PROCALCITONIN (BEAKER) (test kpik=3744) 0.28 ng/mL <0.05 SEPSIS RISK (ng/mL)Low: 0.05-0.50Intermediate: 0.51-2.00High: & gt;=2.01LACTATE DEHYDROGENASE (LDH)2017-07-27 03:07:00 Test Item Value Reference Range Comments LACTATE DEHYDROGENASE (BEAKER) (test crkl=245) 615 U/L 125-220 HEPATIC FUNCTION [id number] 03:07:00 Test Item Value Reference Range Comments TOTAL PROTEIN (BEAKER) (test gulh=672) 6.8 gm/dL 6.0-8.3 ALBUMIN (BEAKER) (test prtg=1523) 3.2 g/dL 3.5-5.0 BILIRUBIN TOTAL (BEAKER) (test lzlq=836) 0.9 mg/dL 0.2-1.2 BILIRUBIN DIRECT (BEAKER) (test onsz=226) 0.5 mg/dL 0.1-0.5 ALKALINE PHOSPHATASE (BEAKER) (test yqwt=153) 58 U/L 40-150 AST (SGOT) (BEAKER) (test bbtd=901) 21 U/L 5-34 ALT (SGPT) (BEAKER) (test rkeb=790) 15 U/L 6-55 CALCIUM, [id number] 02:57:00 Test Item Value Reference Range Comments CALCIUM IONIZED (BEAKER) (test wkpd=303) 1.14 mmol/L 1.12-1.27 PH, BLOOD (BEAKER) (test qwgr=6020) 7.42 CBC W/PLT COUNT & AUTO [id number] 02:56:00 Test Item Value Reference Range Comments WHITE BLOOD CELL COUNT (BEAKER) (test beof=231) 12.4 K/ L 3.5-10.5 RED BLOOD CELL COUNT (BEAKER) (test pryw=704) 2.50 M/ L 3.93-5.22 HEMOGLOBIN (BEAKER) (test ubzr=416) 7.4 GM/DL 11.2-15.7 HEMATOCRIT (BEAKER) (test vezx=349) 24.7 % 34.1-44.9 MEAN CORPUSCULAR VOLUME (BEAKER) (test nhxs=267) 98.8 fL 79.4-94.8 MEAN CORPUSCULAR HEMOGLOBIN (BEAKER) (test 29.6 pg 25.6-32.2 yjcr=764) MEAN CORPUSCULAR HEMOGLOBIN CONC (BEAKER) (test 30.0 GM/DL 32.2-35.5 iafs=653) RED CELL DISTRIBUTION WIDTH (BEAKER) (test 15.1 % 11.7-14.4 wuoj=568) PLATELET COUNT (BEAKER) (test eeum=400) 233 K/CU MM 150-450 MEAN PLATELET VOLUME (BEAKER) (test jmgq=737) 10.5 fL 9.4-12.3 NUCLEATED RED BLOOD CELLS (BEAKER) (test 0 /100 WBC 0-0 csrz=199) NEUTROPHILS RELATIVE PERCENT (BEAKER) (test 80 % upsg=126) LYMPHOCYTES RELATIVE PERCENT (BEAKER) (test 9 % drfc=070) MONOCYTES RELATIVE PERCENT (BEAKER) (test 7 % gtpm=117) EOSINOPHILS RELATIVE PERCENT (BEAKER) (test 2 % djlb=959) BASOPHILS RELATIVE PERCENT (BEAKER) (test 0 % pvko=298) NEUTROPHILS ABSOLUTE COUNT (BEAKER) (test 9.94 K/ L 1.56-6.13 ieih=915) LYMPHOCYTES ABSOLUTE COUNT (BEAKER) (test 1.15 K/ L 1.18-3.74 afrg=048) MONOCYTES ABSOLUTE COUNT (BEAKER) (test 0.90 K/ L 0.24-0.36 kttm=089) EOSINOPHILS ABSOLUTE COUNT (BEAKER) (test 0.24 K/ L 0.04-0.36 oitu=127) BASOPHILS ABSOLUTE COUNT (BEAKER) (test 0.05 K/ L 0.01-0.08 xqea=676) IMMATURE GRANULOCYTES-RELATIVE PERCENT (BEAKER) 1 % 0-1 (test ibpg=7705) [id number] 01:29:00 Test Item Value Reference Range Comments PHOSPHORUS (BEAKER) (test nqob=121) 3.5 mg/dL 2.3-4.7 BASIC METABOLIC [id number] 01:29:00 Test Item Value Reference Range Comments SODIUM (BEAKER) (test 145 meq/L 136-145 swaq=888) POTASSIUM (BEAKER) (test 3.4 meq/L 3.5-5.1 weos=744) CHLORIDE (BEAKER) (test 107 meq/L 98-107 vrya=605) CO2 (BEAKER) (test 26 meq/L 22-29 kazr=507) BLOOD UREA NITROGEN 21 mg/dL 7-21 (BEAKER) (test aqvw=055) CREATININE (BEAKER) (test 1.47 mg/dL 0.57-1.25 fjja=933) GLUCOSE RANDOM (BEAKER) 138 mg/dL 70-105 (test illc=623) CALCIUM (BEAKER) (test 9.1 mg/dL 8.4-10.2 kcgf=421) EGFR (BEAKER) (test 43 mL/min/1.73 sq m ESTIMATED GFR IS NOT ifhu=4534) ACCURATE CREATININE CLEARANCE IN PREDICTING GLOMERULAR FILTRATION RATE. ESTIMATED GFR IS NOT APPLICABLE FOR DIALYSIS PATIENTS. POCT-GLUCOSE [id number] 22:08:00 Test Item Value Reference Range Comments POC-GLUCOSE METER (BEAKER) 166 mg/dL 70-110 TESTED AT [facility] [address] [facility] (test jert=3676) [facility] [address] [id number] 21:22:00 Test Item Value Reference Range Comments MAGNESIUM (BEAKER) (test qfof=790) 2.2 mg/dL 1.6-2.6 [id number] 19:23:00 Test Item Value Reference Range Comments PHOSPHORUS (BEAKER) (test zpde=549) 2.9 mg/dL 2.3-4.7 BASIC METABOLIC [id number] 19:23:00 Test Item Value Reference Range Comments SODIUM (BEAKER) (test 145 meq/L 136-145 bodr=272) POTASSIUM (BEAKER) (test 3.6 meq/L 3.5-5.1 koom=028) CHLORIDE (BEAKER) (test 109 meq/L 98-107 msvw=213) CO2 (BEAKER) (test 24 meq/L 22-29 frdi=704) BLOOD UREA NITROGEN 22 mg/dL 7-21 (BEAKER) (test jzll=803) CREATININE (BEAKER) (test 1.48 mg/dL 0.57-1.25 ycaa=338) GLUCOSE RANDOM (BEAKER) 150 mg/dL 70-105 (test menf=211) CALCIUM (BEAKER) (test 9.0 mg/dL 8.4-10.2 xubx=819) EGFR (BEAKER) (test 42 mL/min/1.73 sq m ESTIMATED GFR IS NOT oeba=2690) ACCURATE CREATININE CLEARANCE IN PREDICTING GLOMERULAR FILTRATION RATE. ESTIMATED GFR IS NOT APPLICABLE FOR DIALYSIS PATIENTS. POCT-GLUCOSE [id number] 18:13:00 Test Item Value Reference Range Comments POC-GLUCOSE METER (BEAKER) 188 mg/dL 70-110 TESTED AT [facility] [address] [facility] (test wjsn=7744) [facility] [address] [id number] 13:12:00 Test Item Value Reference Range Comments PHOSPHORUS (BEAKER) (test died=103) 2.7 mg/dL 2.3-4.7 BASIC METABOLIC [id number] 13:12:00 Test Item Value Reference Range Comments SODIUM (BEAKER) (test 144 meq/L 136-145 eail=447) POTASSIUM (BEAKER) (test 3.5 meq/L 3.5-5.1 repc=340) CHLORIDE (BEAKER) (test 108 meq/L 98-107 iuwx=236) CO2 (BEAKER) (test 26 meq/L 22-29 yybp=119) BLOOD UREA NITROGEN 23 mg/dL 7-21 (BEAKER) (test raex=490) CREATININE (BEAKER) (test 1.45 mg/dL 0.57-1.25 bqlh=561) GLUCOSE RANDOM (BEAKER) 183 mg/dL 70-105 (test bvsd=894) CALCIUM (BEAKER) (test 8.5 mg/dL 8.4-10.2 xaip=562) EGFR (BEAKER) (test 43 mL/min/1.73 sq m ESTIMATED GFR IS NOT moeg=0460) ACCURATE CREATININE CLEARANCE IN PREDICTING GLOMERULAR FILTRATION RATE. ESTIMATED GFR IS NOT APPLICABLE FOR DIALYSIS PATIENTS. POCT-GLUCOSE [id number] 12:07:00 Test Item Value Reference Range Comments POC-GLUCOSE METER (BEAKER) 203 mg/dL 70-110 TESTED AT [address] (test gwvw=0598) [facility] [address] [id number] 09:50:00 Test Item Value Reference Range Comments MAGNESIUM (BEAKER) (test qgkt=645) 2.6 mg/dL 1.6-2.6 RAD, CHEST, 1 VIEW, NON [id number] 08:06:00Reason for exam:->acute respiratory insufficiencyShould this be [...] MDReport Verified Date/Time: 07/26/2017 08:06:19 Reading Location: [facility] Radiology Reading Room POCT-GLUCOSE [id number] 07:58:00 Test Item Value Reference Range Comments POC-GLUCOSE METER (BEAKER) 176 mg/dL 70-110 TESTED AT [address] (test mkmm=3495) [facility] [address] OXYGEN SATURATION, [id number] 05:23:00 Test Item Value Reference Range Comments O2 SATURATION (MEASURED) (BEAKER) (test novq=2315) 64.5 % calibrationBLOOD GAS, [id number] 04:43:00 Test Item Value Reference Range Comments PH ARTERIAL (BEAKER) (test ojkn=383) 7.44 7.35-7.45 PCO2 ARTERIAL (BEAKER) (test syyi=981) 44 mmHg 35-45 PO2 ARTERIAL (BEAKER) (test xkwr=289) 127 mmHg 80-90 O2 SATURATION ARTERIAL (BEAKER) (test gjay=024) 98.6 % 96.0-97.0 HCO3 ARTERIAL (BEAKER) (test pvsv=852) 29 mmol/L 21-29 BASE EXCESS ARTERIAL (BEAKER) (test pmyf=174) 4.6 mmol/L -2.0-3.0 PATIENT TEMPERATURE (BEAKER) (test wouh=1453) 37.3 C FIO2 (BEAKER) (test zodc=5147) 100.0 % [id number] 04:31:00 Test Item Value Reference Range Comments PHOSPHORUS (BEAKER) (test dyqn=419) 3.4 mg/dL 2.3-4.7 [id number] 04:31:00 Test Item Value Reference Range Comments MAGNESIUM (BEAKER) (test yrkf=540) 2.2 mg/dL 1.6-2.6 BASIC METABOLIC [id number] 04:31:00 Test Item Value Reference Range Comments SODIUM (BEAKER) (test 146 meq/L 136-145 bikc=072) POTASSIUM (BEAKER) (test 3.7 meq/L 3.5-5.1 pqhj=636) CHLORIDE (BEAKER) (test 108 meq/L 98-107 izyk=203) CO2 (BEAKER) (test 28 meq/L 22-29 jnzo=722) BLOOD UREA NITROGEN 23 mg/dL 7-21 (BEAKER) (test fomp=303) CREATININE (BEAKER) (test 1.51 mg/dL 0.57-1.25 dgpb=695) GLUCOSE RANDOM (BEAKER) 151 mg/dL 70-105 (test dnps=641) CALCIUM (BEAKER) (test 9.4 mg/dL 8.4-10.2 ghwo=059) EGFR (BEAKER) (test 41 mL/min/1.73 sq m ESTIMATED GFR IS NOT sipo=8440) ACCURATE CREATININE CLEARANCE IN PREDICTING GLOMERULAR FILTRATION RATE. ESTIMATED GFR IS NOT APPLICABLE FOR DIALYSIS PATIENTS. HEPATIC FUNCTION [id number] 04:31:00 Test Item Value Reference Range Comments TOTAL PROTEIN (BEAKER) (test ijzk=376) 6.6 gm/dL 6.0-8.3 ALBUMIN (BEAKER) (test euty=6289) 3.2 g/dL 3.5-5.0 BILIRUBIN TOTAL (BEAKER) (test bxlf=355) 1.0 mg/dL 0.2-1.2 BILIRUBIN DIRECT (BEAKER) (test daex=942) 0.5 mg/dL 0.1-0.5 ALKALINE PHOSPHATASE (BEAKER) (test njoc=594) 60 U/L 40-150 AST (SGOT) (BEAKER) (test vtig=843) 25 U/L 5-34 ALT (SGPT) (BEAKER) (test anta=587) 18 U/L 6-55 COMPREHENSIVE METABOLIC [id number] 04:31:00 Test Item Value Reference Range Comments TOTAL PROTEIN (BEAKER) 6.6 gm/dL 6.0-8.3 (test ckbp=657) ALBUMIN (BEAKER) (test 3.2 g/dL 3.5-5.0 yxxn=8103) ALKALINE PHOSPHATASE 60 U/L 40-150 (BEAKER) (test vecf=523) BILIRUBIN TOTAL (BEAKER) 1.0 mg/dL 0.2-1.2 (test tjaw=002) SODIUM (BEAKER) (test 146 meq/L 136-145 gehn=997) POTASSIUM (BEAKER) (test 3.7 meq/L 3.5-5.1 suuh=318) CHLORIDE (BEAKER) (test 108 meq/L 98-107 jkot=659) CO2 (BEAKER) (test 28 meq/L 22-29 fwtm=272) BLOOD UREA NITROGEN 23 mg/dL 7-21 (BEAKER) (test rydf=025) CREATININE (BEAKER) (test 1.51 mg/dL 0.57-1.25 oghz=949) GLUCOSE RANDOM (BEAKER) 151 mg/dL 70-105 (test clox=471) CALCIUM (BEAKER) (test 9.4 mg/dL 8.4-10.2 vryp=910) AST (SGOT) (BEAKER) (test 25 U/L 5-34 ckyf=703) ALT (SGPT) (BEAKER) (test 18 U/L 6-55 upka=034) EGFR (BEAKER) (test 41 mL/min/1.73 sq m ESTIMATED GFR IS NOT bseo=7938) ACCURATE CREATININE CLEARANCE IN PREDICTING GLOMERULAR FILTRATION RATE. ESTIMATED GFR IS NOT APPLICABLE FOR DIALYSIS PATIENTS. LACTATE DEHYDROGENASE (LDH)2017-07-26 04:31:00 Test Item Value Reference Range Comments LACTATE DEHYDROGENASE (BEAKER) (test sbyt=456) 661 U/L 125-220 CALCIUM, [id number] 04:23:00 Test Item Value Reference Range Comments CALCIUM IONIZED (BEAKER) (test ldwi=032) 1.15 mmol/L 1.12-1.27 PH, BLOOD (BEAKER) (test hrgv=0776) 7.47 CBC W/PLT COUNT & AUTO [id number] 04:20:00 Test Item Value Reference Range Comments WHITE BLOOD CELL COUNT (BEAKER) (test pvoz=391) 13.0 K/ L 3.5-10.5 RED BLOOD CELL COUNT (BEAKER) (test jcul=155) 2.56 M/ L 3.93-5.22 HEMOGLOBIN (BEAKER) (test rsei=450) 7.6 GM/DL 11.2-15.7 HEMATOCRIT (BEAKER) (test szyb=909) 25.4 % 34.1-44.9 MEAN CORPUSCULAR VOLUME (BEAKER) (test enkn=835) 99.2 fL 79.4-94.8 MEAN CORPUSCULAR HEMOGLOBIN (BEAKER) (test 29.7 pg 25.6-32.2 pdjr=936) MEAN CORPUSCULAR HEMOGLOBIN CONC (BEAKER) (test 29.9 GM/DL 32.2-35.5 guav=619) RED CELL DISTRIBUTION WIDTH (BEAKER) (test 15.0 % 11.7-14.4 swpi=361) PLATELET COUNT (BEAKER) (test vmel=302) 161 K/CU MM 150-450 MEAN PLATELET VOLUME (BEAKER) (test ggdr=591) 11.0 fL 9.4-12.3 NUCLEATED RED BLOOD CELLS (BEAKER) (test 0 /100 WBC 0-0 tbyq=926) NEUTROPHILS RELATIVE PERCENT (BEAKER) (test 79 % iyim=509) LYMPHOCYTES RELATIVE PERCENT (BEAKER) (test 10 % gjzz=540) MONOCYTES RELATIVE PERCENT (BEAKER) (test 7 % shav=644) EOSINOPHILS RELATIVE PERCENT (BEAKER) (test 2 % nfmv=489) BASOPHILS RELATIVE PERCENT (BEAKER) (test 1 % bhvb=960) NEUTROPHILS ABSOLUTE COUNT (BEAKER) (test 10.33 K/ L 1.56-6.13 tevk=150) LYMPHOCYTES ABSOLUTE COUNT (BEAKER) (test 1.35 K/ L 1.18-3.74 bsna=007) MONOCYTES ABSOLUTE COUNT (BEAKER) (test 0.96 K/ L 0.24-0.36 zryk=708) EOSINOPHILS ABSOLUTE COUNT (BEAKER) (test 0.19 K/ L 0.04-0.36 vssd=978) BASOPHILS ABSOLUTE COUNT (BEAKER) (test 0.07 K/ L 0.01-0.08 vbnd=423) IMMATURE GRANULOCYTES-RELATIVE PERCENT (BEAKER) 1 % 0-1 (test otkf=9060) [id number] 21:19:00 Test Item Value Reference Range Comments PHOSPHORUS (BEAKER) (test vwyg=049) 4.4 mg/dL 2.3-4.7 [id number] 21:19:00 Test Item Value Reference Range Comments MAGNESIUM (BEAKER) (test exwm=001) 2.1 mg/dL 1.6-2.6 BASIC METABOLIC [id number] 21:19:00 Test Item Value Reference Range Comments SODIUM (BEAKER) (test 146 meq/L 136-145 aqqh=657) POTASSIUM (BEAKER) (test 3.9 meq/L 3.5-5.1 iioy=877) CHLORIDE (BEAKER) (test 108 meq/L 98-107 from=544) CO2 (BEAKER) (test 27 meq/L 22-29 szum=748) BLOOD UREA NITROGEN 24 mg/dL 7-21 (BEAKER) (test nyzd=699) CREATININE (BEAKER) (test 1.64 mg/dL 0.57-1.25 jyxt=031) GLUCOSE RANDOM (BEAKER) 120 mg/dL 70-105 (test mnbv=485) CALCIUM (BEAKER) (test 9.5 mg/dL 8.4-10.2 ccmt=752) EGFR (BEAKER) (test 38 mL/min/1.73 sq m ESTIMATED GFR IS NOT kflb=0784) ACCURATE CREATININE CLEARANCE IN PREDICTING GLOMERULAR FILTRATION RATE. ESTIMATED GFR IS NOT APPLICABLE FOR DIALYSIS PATIENTS. POCT-GLUCOSE [id number] 18:36:00 Test Item Value Reference Range Comments POC-GLUCOSE METER (BEAKER) 129 mg/dL 70-110 TESTED AT [facility] [address] [facility] (test tiau=3208) [facility] [address] POCT-GLUCOSE [id number] 16:19:00 Test Item Value Reference Range Comments POC-GLUCOSE METER (BEAKER) 132 mg/dL 70-110 TESTED AT [place] [id number] [facility] (test jdnd=1868) [facility] [address] [id number] 13:57:00 Test Item Value Reference Range Comments PHOSPHORUS (BEAKER) (test dbpo=534) 4.2 mg/dL 2.3-4.7 BASIC METABOLIC [id number] 13:57:00 Test Item Value Reference Range Comments SODIUM (BEAKER) (test 147 meq/L 136-145 nubf=131) POTASSIUM (BEAKER) (test 3.7 meq/L 3.5-5.1 nwuq=045) CHLORIDE (BEAKER) (test 110 meq/L 98-107 xxxy=292) CO2 (BEAKER) (test 25 meq/L 22-29 mxmf=021) BLOOD UREA NITROGEN 23 mg/dL 7-21 (BEAKER) (test uarg=966) CREATININE (BEAKER) (test 1.58 mg/dL 0.57-1.25 xiej=583) GLUCOSE RANDOM (BEAKER) 129 mg/dL 70-105 (test ebbz=312) CALCIUM (BEAKER) (test 9.2 mg/dL 8.4-10.2 fpne=441) EGFR (BEAKER) (test 39 mL/min/1.73 sq m ESTIMATED GFR IS NOT bade=4311) ACCURATE CREATININE CLEARANCE IN PREDICTING GLOMERULAR FILTRATION RATE. ESTIMATED GFR IS NOT APPLICABLE FOR DIALYSIS PATIENTS. BLOOD GAS, [id number] 13:48:00 Test Item Value Reference Range Comments PH ARTERIAL (BEAKER) (test zxtb=788) 7.42 7.35-7.45 PCO2 ARTERIAL (BEAKER) (test tzig=538) 47 mmHg 35-45 PO2 ARTERIAL (BEAKER) (test daqj=012) 202 mmHg 80-90 O2 SATURATION ARTERIAL (BEAKER) (test qsgd=510) 99.4 % 96.0-97.0 HCO3 ARTERIAL (BEAKER) (test nqzs=559) 29 mmol/L 21-29 BASE EXCESS ARTERIAL (BEAKER) (test hfer=804) 4.4 mmol/L -2.0-3.0 PATIENT TEMPERATURE (BEAKER) (test upbc=1182) 37.6 C FIO2 (BEAKER) (test ifgv=3459) 100.0 % POCT-GLUCOSE [id number] 13:31:00 Test Item Value Reference Range Comments POC-GLUCOSE METER (BEAKER) 128 mg/dL 70-110 TESTED AT [address] (test qdbn=0364) [place] [id number] POCT-GLUCOSE [id number] 11:02:00 Test Item Value Reference Range Comments POC-GLUCOSE METER (BEAKER) 137 mg/dL 70-110 TESTED AT [address] (test pkhu=0343) [facility] [address] POCT-GLUCOSE [id number] 11:02:00 Test Item Value Reference Range Comments POC-GLUCOSE METER (BEAKER) 141 mg/dL 70-110 TESTED AT [address] (test ypuu=8759) [facility] [address] POCT-GLUCOSE [id number] 11:02:00 Test Item Value Reference Range Comments POC-GLUCOSE METER (BEAKER) 104 mg/dL 70-110 TESTED AT [address] (test gssk=9252) [facility] [address] BLOOD [id number] 11:00:00 Test Item Value Reference Range Comments CULTURE (BEAKER) (test velt=9526) No growth in 5 days BLOOD [id number] 11:00:00 Test Item Value Reference Range Comments CULTURE (BEAKER) (test jvfa=9280) No growth in 5 days CBC W/PLT COUNT & AUTO [id number] 08:54:00 Test Item Value Reference Range Comments WHITE BLOOD CELL COUNT (BEAKER) (test btui=374) 13.8 K/ L 3.5-10.5 RED BLOOD CELL COUNT (BEAKER) (test sfpq=196) 2.54 M/ L 3.93-5.22 HEMOGLOBIN (BEAKER) (test ttjw=089) 7.7 GM/DL 11.2-15.7 HEMATOCRIT (BEAKER) (test xedz=179) 25.2 % 34.1-44.9 MEAN CORPUSCULAR VOLUME (BEAKER) (test qvnj=628) 99.2 fL 79.4-94.8 MEAN CORPUSCULAR HEMOGLOBIN (BEAKER) (test 30.3 pg 25.6-32.2 pape=315) MEAN CORPUSCULAR HEMOGLOBIN CONC (BEAKER) (test 30.6 GM/DL 32.2-35.5 ofel=119) RED CELL DISTRIBUTION WIDTH (BEAKER) (test 15.2 % 11.7-14.4 vvwo=873) PLATELET COUNT (BEAKER) (test svok=113) 127 K/CU MM 150-450 MEAN PLATELET VOLUME (BEAKER) (test iela=608) 10.6 fL 9.4-12.3 NUCLEATED RED BLOOD CELLS (BEAKER) (test 0 /100 WBC 0-0 xcvb=187) NEUTROPHILS RELATIVE PERCENT (BEAKER) (test 81 % jygu=233) LYMPHOCYTES RELATIVE PERCENT (BEAKER) (test 8 % bhiv=822) MONOCYTES RELATIVE PERCENT (BEAKER) (test 9 % sphr=211) EOSINOPHILS RELATIVE PERCENT (BEAKER) (test 1 % zkqi=668) BASOPHILS RELATIVE PERCENT (BEAKER) (test 0 % dpuj=656) NEUTROPHILS ABSOLUTE COUNT (BEAKER) (test 11.11 K/ L 1.56-6.13 oeyt=159) LYMPHOCYTES ABSOLUTE COUNT (BEAKER) (test 1.14 K/ L 1.18-3.74 eche=129) MONOCYTES ABSOLUTE COUNT (BEAKER) (test 1.20 K/ L 0.24-0.36 repb=057) EOSINOPHILS ABSOLUTE COUNT (BEAKER) (test 0.15 K/ L 0.04-0.36 nhkj=979) BASOPHILS ABSOLUTE COUNT (BEAKER) (test 0.04 K/ L 0.01-0.08 eeol=440) IMMATURE GRANULOCYTES-RELATIVE PERCENT (BEAKER) 1 % 0-1 (test fbyy=4341) BLOOD GAS, [id number] 08:40:00 Test Item Value Reference Range Comments PH ARTERIAL (BEAKER) (test pexe=794) 7.43 7.35-7.45 PCO2 ARTERIAL (BEAKER) (test cgjn=819) 35 mmHg 35-45 PO2 ARTERIAL (BEAKER) (test jsmn=908) 82 mmHg 80-90 O2 SATURATION ARTERIAL (BEAKER) (test xbxo=857) 95.7 % 96.0-97.0 HCO3 ARTERIAL (BEAKER) (test fzuk=318) 22 mmol/L 21-29 BASE EXCESS ARTERIAL (BEAKER) (test trvd=383) -1.3 mmol/L -2.0-3.0 PATIENT TEMPERATURE (BEAKER) (test vyvp=7734) 38.3 C FIO2 (BEAKER) (test huml=8036) 40.0 % [id number] 06:59:00 Test Item Value Reference Range Comments PHOSPHORUS (BEAKER) (test vhnp=715) 3.4 mg/dL 2.3-4.7 [id number] 06:59:00 Test Item Value Reference Range Comments MAGNESIUM (BEAKER) (test amoy=754) 2.0 mg/dL 1.6-2.6 BASIC METABOLIC [id number] 06:59:00 Test Item Value Reference Range Comments SODIUM (BEAKER) (test 147 meq/L 136-145 dpnt=216) POTASSIUM (BEAKER) (test 3.7 meq/L 3.5-5.1 rait=009) CHLORIDE (BEAKER) (test 111 meq/L 98-107 cwjg=448) CO2 (BEAKER) (test 23 meq/L 22-29 xjbl=224) BLOOD UREA NITROGEN 24 mg/dL 7-21 (BEAKER) (test ifrs=260) CREATININE (BEAKER) (test 1.57 mg/dL 0.57-1.25 ywai=516) GLUCOSE RANDOM (BEAKER) 121 mg/dL 70-105 (test ullb=544) CALCIUM (BEAKER) (test 9.0 mg/dL 8.4-10.2 cgia=079) EGFR (BEAKER) (test 39 mL/min/1.73 sq m ESTIMATED GFR IS NOT less=4107) ACCURATE CREATININE CLEARANCE IN PREDICTING GLOMERULAR FILTRATION RATE. ESTIMATED GFR IS NOT APPLICABLE FOR DIALYSIS PATIENTS. POCT-GLUCOSE [id number] 06:27:00 Test Item Value Reference Range Comments POC-GLUCOSE METER (BEAKER) 95 mg/dL 70-110 TESTED AT [address] (test uvlk=4742) [facility] [address] POCT-GLUCOSE [id number] 06:04:00 Test Item Value Reference Range Comments POC-GLUCOSE METER (BEAKER) 128 mg/dL 70-110 TESTED AT [facility] [address] (test icpw=8461) [facility] [address] [id number] 05:36:00 Test Item Value Reference Range Comments PHOSPHORUS (BEAKER) (test eslh=122) 3.4 mg/dL 2.3-4.7 BASIC METABOLIC [id number] 05:36:00 Test Item Value Reference Range Comments SODIUM (BEAKER) (test 146 meq/L 136-145 efts=683) POTASSIUM (BEAKER) (test 3.6 meq/L 3.5-5.1 xwca=889) CHLORIDE (BEAKER) (test 110 meq/L 98-107 veyy=468) CO2 (BEAKER) (test 25 meq/L 22-29 ipld=985) BLOOD UREA NITROGEN 25 mg/dL 7-21 (BEAKER) (test bsdr=248) CREATININE (BEAKER) (test 1.58 mg/dL 0.57-1.25 dnks=721) GLUCOSE RANDOM (BEAKER) 114 mg/dL 70-105 (test guxp=930) CALCIUM (BEAKER) (test 8.9 mg/dL 8.4-10.2 wmge=166) EGFR (BEAKER) (test 39 mL/min/1.73 sq m ESTIMATED GFR IS NOT lcse=2361) ACCURATE CREATININE CLEARANCE IN PREDICTING GLOMERULAR FILTRATION RATE. ESTIMATED GFR IS NOT APPLICABLE FOR DIALYSIS PATIENTS. HEPATIC FUNCTION [id number] 05:36:00 Test Item Value Reference Range Comments TOTAL PROTEIN (BEAKER) (test mgoq=283) 6.3 gm/dL 6.0-8.3 ALBUMIN (BEAKER) (test bhwp=3633) 3.1 g/dL 3.5-5.0 BILIRUBIN TOTAL (BEAKER) (test iclw=678) 1.1 mg/dL 0.2-1.2 BILIRUBIN DIRECT (BEAKER) (test dgjb=887) 0.7 mg/dL 0.1-0.5 ALKALINE PHOSPHATASE (BEAKER) (test ikoo=716) 54 U/L 40-150 AST (SGOT) (BEAKER) (test ttea=507) 23 U/L 5-34 ALT (SGPT) (BEAKER) (test satd=179) 17 U/L 6-55 LACTATE DEHYDROGENASE (LDH)2017-07-25 05:36:00 Test Item Value Reference Range Comments LACTATE DEHYDROGENASE (BEAKER) (test yxus=287) 695 U/L 125-220 POCT-GLUCOSE [id number] 05:24:00 Test Item Value Reference Range Comments POC-GLUCOSE METER (BEAKER) 102 mg/dL 70-110 TESTED AT [facility] [address] [facility] (test hfgt=2492) [facility] [address] RAD, CHEST, 1 VIEW, NON [id number] 04:43:00Reason for exam:-> impellaShould this be performed at the bedside?->YesFINAL REPORT Chest one view. Clinical history: impella Comparison: Chest radiograph 07/24/17 Technique: A single frontal view of the chest was obtained. Findings: Cardiomediastinal contours are unchanged. Endotracheal and feeding tubes as well as a right IJ [place]-Jagdeep catheter are unchanged in position. There are patchy bibasilar opacities which may represent atelectasis and/or pneumonia. There is mild elevation of the left hemidiaphragm. There is no definite pleural effusionor pneumothorax. Signed: [facility] Verified Date/Time: 07/25/2017 04:43:27 ReadingLocation: [facility] B1 C013T Transitional Reading Room [id number] 00:51:00 Test Item Value Reference Range Comments PHOSPHORUS (BEAKER) (test ultc=125) 3.4 mg/dL 2.3-4.7 BASIC METABOLIC [id number] 00:51:00 Test Item Value Reference Range Comments SODIUM (BEAKER) (test 146 meq/L 136-145 zqmt=503) POTASSIUM (BEAKER) (test 4.0 meq/L 3.5-5.1 bzsy=657) CHLORIDE (BEAKER) (test 110 meq/L 98-107 jizd=530) CO2 (BEAKER) (test 26 meq/L 22-29 wqmm=949) BLOOD UREA NITROGEN 26 mg/dL 7-21 (BEAKER) (test xwpf=827) CREATININE (BEAKER) (test 1.53 mg/dL 0.57-1.25 cvxm=691) GLUCOSE RANDOM (BEAKER) 105 mg/dL 70-105 (test fxat=701) CALCIUM (BEAKER) (test 8.8 mg/dL 8.4-10.2 ycmp=766) EGFR (BEAKER) (test 41 mL/min/1.73 sq m ESTIMATED GFR IS NOT pdoa=1509) ACCURATE CREATININE CLEARANCE IN PREDICTING GLOMERULAR FILTRATION RATE. ESTIMATED GFR IS NOT APPLICABLE FOR DIALYSIS PATIENTS. POCT-GLUCOSE [id number] 00:32:00 Test Item Value Reference Range Comments POC-GLUCOSE METER (BEAKER) 119 mg/dL 70-110 TESTED AT [address] (test rmtw=5674) [place] [id number] POCT-GLUCOSE [id number] 00:27:00 Test Item Value Reference Range Comments POC-GLUCOSE METER (BEAKER) 114 mg/dL 70-110 TESTED AT [address] (test kfwo=2680) [place] [id number] POCT-GLUCOSE [id number] 23:58:00 Test Item Value Reference Range Comments POC-GLUCOSE METER (BEAKER) 117 mg/dL 70-110 TESTED AT [address] (test qtuq=3297) [place] [id number] 21:24:00 Test Item Value Reference Range Comments MAGNESIUM (BEAKER) (test aukj=245) 2.0 mg/dL 1.6-2.6 POCT-GLUCOSE [id number] 20:24:00 Test Item Value Reference Range Comments POC-GLUCOSE METER (BEAKER) 130 mg/dL 70-110 TESTED AT [address] (test zfqc=0503) [place] [id number] [id number] 19:20:00 Test Item Value Reference Range Comments POTASSIUM (BEAKER) (test efuz=912) 3.6 meq/L 3.5-5.1 [id number] 19:20:00 Test Item Value Reference Range Comments GLUCOSE RANDOM (BEAKER) (test cliw=187) 168 mg/dL 70-105 [id number] 18:01:00 Test Item Value Reference Range Comments PHOSPHORUS (BEAKER) (test xdfd=980) 3.7 mg/dL 2.3-4.7 BASIC METABOLIC [id number] 18:01:00 Test Item Value Reference Range Comments SODIUM (BEAKER) (test 145 meq/L 136-145 nxdf=672) POTASSIUM (BEAKER) (test 3.9 meq/L 3.5-5.1 bnii=313) CHLORIDE (BEAKER) (test 109 meq/L 98-107 balb=578) CO2 (BEAKER) (test 27 meq/L 22-29 rfte=022) BLOOD UREA NITROGEN 26 mg/dL 7-21 (BEAKER) (test ymmw=417) CREATININE (BEAKER) (test 1.47 mg/dL 0.57-1.25 oxzg=008) GLUCOSE RANDOM (BEAKER) 210 mg/dL 70-105 (test bmir=029) CALCIUM (BEAKER) (test 8.5 mg/dL 8.4-10.2 hpkv=394) EGFR (BEAKER) (test 43 mL/min/1.73 sq m ESTIMATED GFR IS NOT lvxf=0322) ACCURATE CREATININE CLEARANCE IN PREDICTING GLOMERULAR FILTRATION RATE. ESTIMATED GFR IS NOT APPLICABLE FOR DIALYSIS PATIENTS. GLUCOSE-STAT [id number] 17:14:00 Test Item Value Reference Range Comments GLUCOSE RANDOM (BEAKER) (test jhti=360) 208 mg/dL 70-110 BLOOD GAS, [id number] 17:13:00 Test Item Value Reference Range Comments PH ARTERIAL (BEAKER) (test nnjs=630) 7.44 7.35-7.45 PCO2 ARTERIAL (BEAKER) (test stwm=913) 43 mmHg 35-45 PO2 ARTERIAL (BEAKER) (test cuok=735) 58 mmHg 80-90 O2 SATURATION ARTERIAL (BEAKER) (test sgxf=471) 90.8 % 96.0-97.0 HCO3 ARTERIAL (BEAKER) (test mdlf=372) 28 mmol/L 21-29 BASE EXCESS ARTERIAL (BEAKER) (test mhpk=301) 3.9 mmol/L -2.0-3.0 PATIENT TEMPERATURE (BEAKER) (test vlgr=2012) 37.0 C FIO2 (BEAKER) (test xsoy=9627) 100.0 % RAD, CHEST, 1 VIEW, NON [id number] 14:00:00Reason for exam:->post intubationShould this be performed at the bedside?->YesFINAL REPORT AP chest. HISTORY: Endotracheal tube COMPARISON: 07/24/2017 IMPRESSION:Endotracheal tube projects deep in the trachea, approximately 1-2 cm above the level of the toro. Cardiomegaly similar to previous. Worsening aeration at the left lung base. Mild pulmonary vascular congestion. No pneumothorax. Signed: Mitchel Jarquin MDReport Verified Date/Time: 07/24/2017 14:00:17 Reading Location: [facility] B1 C013Y CT Body Reading Room [id number] 13:40:00 Test Item Value Reference Range Comments PHOSPHORUS (BEAKER) (test bbwn=306) 4.3 mg/dL 2.3-4.7 [id number] 13:40:00 Test Item Value Reference Range Comments MAGNESIUM (BEAKER) (test iegv=236) 2.0 mg/dL 1.6-2.6 BASIC METABOLIC [id number] 13:40:00 Test Item Value Reference Range Comments SODIUM (BEAKER) (test 145 meq/L 136-145 ndud=515) POTASSIUM (BEAKER) (test 3.9 meq/L 3.5-5.1 vsni=274) CHLORIDE (BEAKER) (test 108 meq/L 98-107 rmih=831) CO2 (BEAKER) (test 24 meq/L 22-29 bgma=242) BLOOD UREA NITROGEN 28 mg/dL 7-21 (BEAKER) (test cagu=817) CREATININE (BEAKER) (test 1.43 mg/dL 0.57-1.25 vipp=717) GLUCOSE RANDOM (BEAKER) 206 mg/dL 70-105 (test bidv=756) CALCIUM (BEAKER) (test 8.5 mg/dL 8.4-10.2 pncu=897) EGFR (BEAKER) (test 44 mL/min/1.73 sq m ESTIMATED GFR IS NOT xdvy=7847) ACCURATE CREATININE CLEARANCE IN PREDICTING GLOMERULAR FILTRATION RATE. ESTIMATED GFR IS NOT APPLICABLE FOR DIALYSIS PATIENTS. LACTIC ACID, ARTERIAL, WHOLE [id number] 13:36:00 Test Item Value Reference Range Comments LACTATE BLOOD ARTERIAL (2) (BEAKER) (test 0.7 mmol/L 0.5-2.2 wjol=8785) Effective 08/06/2015: Units/Reference Range ChangeNew: 0.5-2.2 mmol/L Previous: 5 -20 mg/dLCBC W/PLT COUNT & AUTO [id number] 13:24:00 Test Item Value Reference Range Comments WHITE BLOOD CELL COUNT (BEAKER) (test lthv=563) 10.5 K/ L 3.5-10.5 RED BLOOD CELL COUNT (BEAKER) (test lxhv=611) 2.70 M/ L 3.93-5.22 HEMOGLOBIN (BEAKER) (test xxyi=058) 8.1 GM/DL 11.2-15.7 HEMATOCRIT (BEAKER) (test luqx=571) 27.0 % 34.1-44.9 MEAN CORPUSCULAR VOLUME (BEAKER) (test gfmk=871) 100.0 fL 79.4-94.8 MEAN CORPUSCULAR HEMOGLOBIN (BEAKER) (test 30.0 pg 25.6-32.2 ibwe=474) MEAN CORPUSCULAR HEMOGLOBIN CONC (BEAKER) (test 30.0 GM/DL 32.2-35.5 srtb=541) RED CELL DISTRIBUTION WIDTH (BEAKER) (test 14.9 % 11.7-14.4 fdrj=070) PLATELET COUNT (BEAKER) (test pesa=510) 117 K/CU MM 150-450 MEAN PLATELET VOLUME (BEAKER) (test duue=451) 10.9 fL 9.4-12.3 NUCLEATED RED BLOOD CELLS (BEAKER) (test 0 /100 WBC 0-0 wzlq=231) NEUTROPHILS RELATIVE PERCENT (BEAKER) (test 78 % prdu=549) LYMPHOCYTES RELATIVE PERCENT (BEAKER) (test 10 % zqyj=893) MONOCYTES RELATIVE PERCENT (BEAKER) (test 10 % btnp=339) EOSINOPHILS RELATIVE PERCENT (BEAKER) (test 1 % yvbw=660) BASOPHILS RELATIVE PERCENT (BEAKER) (test 0 % leqn=746) NEUTROPHILS ABSOLUTE COUNT (BEAKER) (test 8.20 K/ L 1.56-6.13 vffl=070) LYMPHOCYTES ABSOLUTE COUNT (BEAKER) (test 1.00 K/ L 1.18-3.74 dcim=302) MONOCYTES ABSOLUTE COUNT (BEAKER) (test 1.06 K/ L 0.24-0.36 cxpe=648) EOSINOPHILS ABSOLUTE COUNT (BEAKER) (test 0.09 K/ L 0.04-0.36 gtrp=345) BASOPHILS ABSOLUTE COUNT (BEAKER) (test 0.04 K/ L 0.01-0.08 agaj=905) IMMATURE GRANULOCYTES-RELATIVE PERCENT (BEAKER) 1 % 0-1 (test trih=8849) OXYGEN SATURATION, [id number] 13:08:00 Test Item Value Reference Range Comments O2 SATURATION (MEASURED) (BEAKER) (test lkxd=1102) 65.1 % PA catheter tipBLOOD GAS, [id number] 13:08:00 Test Item Value Reference Range Comments PH ARTERIAL (BEAKER) (test ipvg=363) 7.42 7.35-7.45 PCO2 ARTERIAL (BEAKER) (test ncvz=341) 42 mmHg 35-45 PO2 ARTERIAL (BEAKER) (test sbiu=991) 239 mmHg 80-90 O2 SATURATION ARTERIAL (BEAKER) (test bvoo=725) 99.6 % 96.0-97.0 HCO3 ARTERIAL (BEAKER) (test adxl=068) 27 mmol/L 21-29 BASE EXCESS ARTERIAL (BEAKER) (test tyin=950) 2.1 mmol/L -2.0-3.0 PATIENT TEMPERATURE (BEAKER) (test wtsr=0012) 36.6 C FIO2 (BEAKER) (test fxme=3295) 100.0 % GLUCOSE-STAT [id number] 13:08:00 Test Item Value Reference Range Comments GLUCOSE RANDOM (BEAKER) (test rcqr=697) 194 mg/dL 70-110 HGB/HCT (H&H) - STAT [id number] 13:08:00 Test Item Value Reference Range Comments HEMOGLOBIN (BEAKER) (test lclt=578) 8.8 g/dL 12.0-15.0 HEMATOCRIT (BEAKER) (test reey=967) 26.0 % 36.0-45.0 CALCIUM, [id number] 13:08:00 Test Item Value Reference Range Comments CALCIUM IONIZED (BEAKER) (test aexv=505) 1.08 mmol/L 1.12-1.27 PH, BLOOD (BEAKER) (test twte=0658) 7.41 SODIUM NA-STAT [id number] 13:07:00 Test Item Value Reference Range Comments SODIUM (BEAKER) (test pafb=669) 140 meq/L 135-148 POTASSIUM-STAT [id number] 13:07:00 Test Item Value Reference Range Comments POTASSIUM (BEAKER) (test fksc=969) 3.7 meq/L 3.6-5.5 SODIUM NA-STAT [id number] 11:39:00 Test Item Value Reference Range Comments SODIUM (BEAKER) (test pzen=778) 141 meq/L 135-148 POTASSIUM-STAT [id number] 11:39:00 Test Item Value Reference Range Comments POTASSIUM (BEAKER) (test hycg=421) 3.6 meq/L 3.6-5.5 BLOOD GAS, [id number] 11:39:00 Test Item Value Reference Range Comments PH ARTERIAL (BEAKER) (test twhc=810) 7.44 7.35-7.45 PCO2 ARTERIAL (BEAKER) (test kysn=596) 42 mmHg 35-45 PO2 ARTERIAL (BEAKER) (test hxge=955) 234 mmHg 80-90 O2 SATURATION ARTERIAL (BEAKER) (test zqjv=566) 99.6 % 96.0-97.0 HCO3 ARTERIAL (BEAKER) (test unnf=308) 28 mmol/L 21-29 BASE EXCESS ARTERIAL (BEAKER) (test pgoh=011) 3.4 mmol/L -2.0-3.0 PATIENT TEMPERATURE (BEAKER) (test vlpl=2737) 36.8 C FIO2 (BEAKER) (test hzhg=9306) 86.0 % GLUCOSE-STAT [id number] 11:39:00 Test Item Value Reference Range Comments GLUCOSE RANDOM (BEAKER) (test xluc=526) 194 mg/dL 70-110 HGB/HCT (H&H) - STAT [id number] 11:39:00 Test Item Value Reference Range Comments HEMOGLOBIN (BEAKER) (test cdle=812) 8.8 g/dL 12.0-15.0 HEMATOCRIT (BEAKER) (test dphn=692) 26.0 % 36.0-45.0 CALCIUM, [id number] 11:39:00 Test Item Value Reference Range Comments CALCIUM IONIZED (BEAKER) (test wipb=188) 1.06 mmol/L 1.12-1.27 PH, BLOOD (BEAKER) (test upio=1913) 7.44 BLOOD GAS, [id number] 10:56:00 Test Item Value Reference Range Comments PH ARTERIAL (BEAKER) (test qsma=830) 7.43 7.35-7.45 PCO2 ARTERIAL (BEAKER) (test dzml=725) 46 mmHg 35-45 PO2 ARTERIAL (BEAKER) (test dfrj=944) 223 mmHg 80-90 O2 SATURATION ARTERIAL (BEAKER) (test zxkw=780) 99.5 % 96.0-97.0 HCO3 ARTERIAL (BEAKER) (test wqeg=883) 30 mmol/L 21-29 BASE EXCESS ARTERIAL (BEAKER) (test swhk=366) 4.6 mmol/L -2.0-3.0 PATIENT TEMPERATURE (BEAKER) (test zgjn=3768) 37.0 C FIO2 (BEAKER) (test jrtp=1041) 100.0 % GLUCOSE-STAT [id number] 10:56:00 Test Item Value Reference Range Comments GLUCOSE RANDOM (BEAKER) (test dszw=124) 190 mg/dL 70-110 HGB/HCT (H&H) - STAT [id number] 10:56:00 Test Item Value Reference Range Comments HEMOGLOBIN (BEAKER) (test ztmp=113) 8.7 g/dL 12.0-15.0 HEMATOCRIT (BEAKER) (test cfoe=069) 26.0 % 36.0-45.0 SODIUM NA-STAT [id number] 10:55:00 Test Item Value Reference Range Comments SODIUM (BEAKER) (test apui=086) 142 meq/L 135-148 POTASSIUM-STAT [id number] 10:55:00 Test Item Value Reference Range Comments POTASSIUM (BEAKER) (test oris=184) 3.5 meq/L 3.6-5.5 [id number] 08:41:00 Test Item Value Reference Range Comments MAGNESIUM (BEAKER) (test nrqs=948) 2.0 mg/dL 1.6-2.6 BLOOD GAS, [id number] 07:57:00 Test Item Value Reference Range Comments PH ARTERIAL (BEAKER) (test wgfz=739) 7.48 7.35-7.45 PCO2 ARTERIAL (BEAKER) (test tfdx=025) 37 mmHg 35-45 PO2 ARTERIAL (BEAKER) (test akvn=173) 71 mmHg 80-90 O2 SATURATION ARTERIAL (BEAKER) (test kyua=299) 94.8 % 96.0-97.0 HCO3 ARTERIAL (BEAKER) (test eaeb=695) 27 mmol/L 21-29 BASE EXCESS ARTERIAL (BEAKER) (test yrnc=949) 3.5 mmol/L -2.0-3.0 PATIENT TEMPERATURE (BEAKER) (test fzbs=0258) 37.8 C FIO2 (BEAKER) (test rjqa=4876) 32.0 % POCT-GLUCOSE [id number] 07:50:00 Test Item Value Reference Range Comments POC-GLUCOSE METER (BEAKER) 246 mg/dL 70-110 TESTED AT [address] (test jyyn=4707) [place] [address] RAD, CHEST, 1 VIEW, NON [id number] 04:54:00Reason for exam:-> impellaShould this be performed at the bedside?->YesFINAL REPORT CLINICAL INDICATION: Support lines. Comparison: 07/23/2017 The cardiomediastinal contours are stable. Central pulmonary vascular prominence and bilateral parenchymalopacities are similar to previous. There is no pneumothorax. Support lines are stable. Signed: Adelso Sorensen Verified Date/Time: 07/24/2017 04:54:08 Reading Location: [address] Reading Room POCT-GLUCOSE [id number] 04:08:00 Test Item Value Reference Range Comments POC-GLUCOSE METER (BEAKER) 137 mg/dL 70-110 TESTED AT [address] (test pvrh=1130) [place] [address] [id number] 03:02:00 Test Item Value Reference Range Comments PHOSPHORUS (BEAKER) (test gzgv=793) 3.7 mg/dL 2.3-4.7 [id number] 03:02:00 Test Item Value Reference Range Comments MAGNESIUM (BEAKER) (test gxws=547) 2.3 mg/dL 1.6-2.6 BASIC METABOLIC [id number] 03:02:00 Test Item Value Reference Range Comments SODIUM (BEAKER) (test 145 meq/L 136-145 uxcl=852) POTASSIUM (BEAKER) (test 4.0 meq/L 3.5-5.1 zmnk=787) CHLORIDE (BEAKER) (test 106 meq/L 98-107 uuew=717) CO2 (BEAKER) (test 26 meq/L 22-29 orju=924) BLOOD UREA NITROGEN 26 mg/dL 7-21 (BEAKER) (test sart=499) CREATININE (BEAKER) (test 1.47 mg/dL 0.57-1.25 pcrw=115) GLUCOSE RANDOM (BEAKER) 141 mg/dL 70-105 (test gwoy=968) CALCIUM (BEAKER) (test 9.0 mg/dL 8.4-10.2 lfok=673) EGFR (BEAKER) (test 43 mL/min/1.73 sq m ESTIMATED GFR IS NOT wwtc=9242) ACCURATE CREATININE CLEARANCE IN PREDICTING GLOMERULAR FILTRATION RATE. ESTIMATED GFR IS NOT APPLICABLE FOR DIALYSIS PATIENTS. HEPATIC FUNCTION [id number] 03:02:00 Test Item Value Reference Range Comments TOTAL PROTEIN (BEAKER) (test hcui=743) 6.6 gm/dL 6.0-8.3 ALBUMIN (BEAKER) (test fpgb=3557) 3.2 g/dL 3.5-5.0 BILIRUBIN TOTAL (BEAKER) (test xauh=414) 1.2 mg/dL 0.2-1.2 BILIRUBIN DIRECT (BEAKER) (test ynye=016) 0.6 mg/dL 0.1-0.5 ALKALINE PHOSPHATASE (BEAKER) (test dvyx=803) 55 U/L 40-150 AST (SGOT) (BEAKER) (test hbfa=943) 33 U/L 5-34 ALT (SGPT) (BEAKER) (test tnvf=868) 25 U/L 6-55 LACTATE DEHYDROGENASE (LDH)2017-07-24 03:02:00 Test Item Value Reference Range Comments LACTATE DEHYDROGENASE (BEAKER) (test juje=495) 879 U/L 125-220 CBC W/PLT COUNT & AUTO [id number] 02:53:00 Test Item Value Reference Range Comments WHITE BLOOD CELL COUNT (BEAKER) (test xknp=320) 12.6 K/ L 3.5-10.5 RED BLOOD CELL COUNT (BEAKER) (test cgmo=274) 2.93 M/ L 3.93-5.22 HEMOGLOBIN (BEAKER) (test qbzd=550) 8.7 GM/DL 11.2-15.7 HEMATOCRIT (BEAKER) (test jvqw=710) 28.3 % 34.1-44.9 MEAN CORPUSCULAR VOLUME (BEAKER) (test veqk=589) 96.6 fL 79.4-94.8 MEAN CORPUSCULAR HEMOGLOBIN (BEAKER) (test 29.7 pg 25.6-32.2 roao=324) MEAN CORPUSCULAR HEMOGLOBIN CONC (BEAKER) (test 30.7 GM/DL 32.2-35.5 vpzo=736) RED CELL DISTRIBUTION WIDTH (BEAKER) (test 14.7 % 11.7-14.4 dfsb=926) PLATELET COUNT (BEAKER) (test lgew=808) 126 K/CU MM 150-450 MEAN PLATELET VOLUME (BEAKER) (test pinn=908) 11.0 fL 9.4-12.3 NUCLEATED RED BLOOD CELLS (BEAKER) (test 0 /100 WBC 0-0 fpgy=756) NEUTROPHILS RELATIVE PERCENT (BEAKER) (test 78 % gqgi=273) LYMPHOCYTES RELATIVE PERCENT (BEAKER) (test 10 % bbkd=816) MONOCYTES RELATIVE PERCENT (BEAKER) (test 10 % gqcp=512) EOSINOPHILS RELATIVE PERCENT (BEAKER) (test 1 % eonr=775) BASOPHILS RELATIVE PERCENT (BEAKER) (test 0 % tkas=299) NEUTROPHILS ABSOLUTE COUNT (BEAKER) (test 9.85 K/ L 1.56-6.13 slsp=660) LYMPHOCYTES ABSOLUTE COUNT (BEAKER) (test 1.27 K/ L 1.18-3.74 knin=630) MONOCYTES ABSOLUTE COUNT (BEAKER) (test 1.25 K/ L 0.24-0.36 shqa=699) EOSINOPHILS ABSOLUTE COUNT (BEAKER) (test 0.10 K/ L 0.04-0.36 laeu=594) BASOPHILS ABSOLUTE COUNT (BEAKER) (test 0.05 K/ L 0.01-0.08 vhmv=244) IMMATURE GRANULOCYTES-RELATIVE PERCENT (BEAKER) 1 % 0-1 (test kiru=1441) [id number] 02:50:00 Test Item Value Reference Range Comments PROTIME (BEAKER) (test kwdq=657) 16.7 seconds 11.7-14.7 INR (BEAKER) (test abvs=949) 1.4 <=5.9 PARTIAL THROMBOPLASTIN TIME (BEAKER) (test 78.5 seconds 22.5-36.0 ymcq=671) RECOMMENDED COUMADIN/WARFARIN INR THERAPY RANGESSTANDARD DOSE: 2.0 - 3.0 Includes: PROPHYLAXIS forvenous thrombosis, systemic embolization; TREATMENT for venous thrombosis and/or pulmonary embolus.HIGH RISK: Target INR is 2.5-3.5 for patients with mechanical heart valves.BLOOD [id number] 00:00:00 Test Item Value Reference Range Comments CULTURE (BEAKER) (test ntbe=1111) No growth in 5 days BLOOD [id number] 00:00:00 Test Item Value Reference Range Comments CULTURE (BEAKER) (test recg=6268) No growth in 5 days [id number] 22:01:00 Test Item Value Reference Range Comments MAGNESIUM (BEAKER) (test tghb=721) 2.0 mg/dL 1.6-2.6 POCT-GLUCOSE [id number] 19:39:00 Test Item Value Reference Range Comments POC-GLUCOSE METER (BEAKER) 135 mg/dL 70-110 TESTED AT [facility] [address] [place] [address] (test vvrz=1576) [facility] [address] BASIC METABOLIC [id number] 19:08:00 Test Item Value Reference Range Comments SODIUM (BEAKER) (test 145 meq/L 136-145 agno=485) POTASSIUM (BEAKER) (test 3.9 meq/L 3.5-5.1 wpvf=531) CHLORIDE (BEAKER) (test 106 meq/L 98-107 ctbe=991) CO2 (BEAKER) (test 28 meq/L 22-29 hvdd=830) BLOOD UREA NITROGEN 26 mg/dL 7-21 (BEAKER) (test dqyl=313) CREATININE (BEAKER) (test 1.45 mg/dL 0.57-1.25 hjjm=787) GLUCOSE RANDOM (BEAKER) 119 mg/dL 70-105 (test xtce=693) CALCIUM (BEAKER) (test 9.2 mg/dL 8.4-10.2 cfwm=359) EGFR (BEAKER) (test 43 mL/min/1.73 sq m ESTIMATED GFR IS NOT ksmm=9813) ACCURATE CREATININE CLEARANCE IN PREDICTING GLOMERULAR FILTRATION RATE. ESTIMATED GFR IS NOT APPLICABLE FOR DIALYSIS PATIENTS. [id number] 19:06:00 Test Item Value Reference Range Comments PHOSPHORUS (BEAKER) (test lvlk=818) 3.7 mg/dL 2.3-4.7 VANCOMYCIN LEVEL, [id number] 16:33:00 Test Item Value Reference Range Comments VANCOMYCIN TROUGH (BEAKER) (test cwyn=547) 17.8 ug/mL 10.0-20.0 If vancomycin trough level > 20 mcg/mL, hold next vancomycin dose, and contact MD and pharmacist.VARICELLA ZOSTER ANTIBODY, [id number] 14:47:00 Test Item Value Reference Range Comments VARICELLA ZOSTER IGG (AL) (BEAKER) (test zult=1896) 2.3 Al VARICELLA ZOSTER RESULT INTERPRETATIONS: <=0.8 Al Nonreactive: Presumed non-immune to VZV 0.9-1.0 Al Equivocal >=1.1 Al Reactive: Presumed immune to VZVCYTOMEGALOVIRUS ANTIBODY, [id number] 14:46:00 Test Item Value Reference Range Comments CYTOMEGALOVIRUS IGG ANTIBODY (BEAKER) (test Negative loxe=023) CYTOMEGALOVIRUS ANTIBODY, [id number] 14:46:00 Test Item Value Reference Range Comments CYTOMEGALOVIRUS IGM ANTIBODY (BEAKER) (test Negative pttm=975) EBV-VCA ANTIBODY, [id number] 14:46:00 Test Item Value Reference Range Comments MARIO-CARMEN VCA IGG (BEAKER) (test rdyl=708) Positive EBV-VCA ANTIBODY, [id number] 14:46:00 Test Item Value Reference Range Comments MARIO-CARMEN VCA IGM (BEAKER) (test ilxv=337) Negative HERPES VIRUS ANTIBODY, [id number] 14:45:00 Test Item Value Reference Range Comments HERPES VIRUS IGG (BEAKER) (test zvly=2907) Negative HSV IgG 1=NEGATIVEHSV IgG 2=NEGATIVETOXOPLASMA GONDII ANTIBODY, [id number] 14 :45:00 Test Item Value Reference Range Comments TOXOPLASMA GONDII IGG (BEAKER) (test iyjs=029) Negative [id number] 14:37:00 Test Item Value Reference Range Comments PARTIAL THROMBOPLASTIN TIME (BEAKER) (test 69.5 seconds 22.5-36.0 kfof=647) OCCULT BLOOD, [id number] 14:34:00 Test Item Value Reference Range Comments FECAL OCCULT BLOOD (BEAKER) (test wtms=529) Negative Negative POCT-GLUCOSE [id number] 14:20:00 Test Item Value Reference Range Comments POC-GLUCOSE METER (BEAKER) 166 mg/dL 70-110 TESTED AT [place] [id number] [facility] (test lcqi=1907) [facility] [address] POCT-GLUCOSE [id number] 14:20:00 Test Item Value Reference Range Comments POC-GLUCOSE METER (BEAKER) 82 mg/dL 70-110 TESTED AT [address] (test svrd=0917) [facility] [address] [id number] 13:00:00 Test Item Value Reference Range Comments PHOSPHORUS (BEAKER) (test tnki=353) 3.2 mg/dL 2.3-4.7 BASIC METABOLIC [id number] 13:00:00 Test Item Value Reference Range Comments SODIUM (BEAKER) (test 143 meq/L 136-145 zdwm=943) POTASSIUM (BEAKER) (test 3.8 meq/L 3.5-5.1 jfzm=324) CHLORIDE (BEAKER) (test 104 meq/L 98-107 cesy=182) CO2 (BEAKER) (test 29 meq/L 22-29 rwwu=930) BLOOD UREA NITROGEN 28 mg/dL 7-21 (BEAKER) (test lrdj=338) CREATININE (BEAKER) (test 1.44 mg/dL 0.57-1.25 lwdc=038) GLUCOSE RANDOM (BEAKER) 171 mg/dL 70-105 (test urbg=988) CALCIUM (BEAKER) (test 9.1 mg/dL 8.4-10.2 kyrh=189) EGFR (BEAKER) (test 44 mL/min/1.73 sq m ESTIMATED GFR IS NOT plmg=9967) ACCURATE CREATININE CLEARANCE IN PREDICTING GLOMERULAR FILTRATION RATE. ESTIMATED GFR IS NOT APPLICABLE FOR DIALYSIS PATIENTS. POCT-GLUCOSE [id number] 12:29:00 Test Item Value Reference Range Comments POC-GLUCOSE METER (BEAKER) 179 mg/dL 70-110 TESTED AT [address] (test euta=3275) [facility] [address] CREATININE [id number] 11:15:00 Test Item Value Reference Range Comments CREATININE CLEARANCE (BEAKER) 45.8 mL/min 70.0-140.0 (test vmjc=297) VOLUME, TOTAL (BEAKER) (test 3400 ml krek=4388) CREATININE URINE (BEAKER) (test 36.8 mg/dL bdru=024) [id number]-045 (BEAKER) Анна Encarnacion MD (test gflx=8617) (electronic signature) PATIENT HEIGHT (CM) (BEAKER) 165.1 cm (test bery=4075) PATIENT WEIGHT (KG) (BEAKER) 84.100 kg (test cdvx=0762) [id number] 09:15:00 Test Item Value Reference Range Comments POTASSIUM (BEAKER) (test dzxr=306) 4.1 meq/L 3.5-5.1 PRN - repeat potassium levels every 1 hour until glucose level is less than 450 mg/[id number] 09:15:00 Test Item Value Reference Range Comments MAGNESIUM (BEAKER) (test gemb=677) 2.4 mg/dL 1.6-2.6 PRN - repeat potassium levels every 1 hour until glucose level is less than 450 mg/dLPOCT-GLUCOSE [id number] 08:47:00 Test Item Value Reference Range Comments POC-GLUCOSE METER (BEAKER) 155 mg/dL 70-110 TESTED AT [address] (test naxh=5914) [facility] [address] POCT-GLUCOSE [id number] 06:12:00 Test Item Value Reference Range Comments POC-GLUCOSE METER (BEAKER) 143 mg/dL 70-110 TESTED AT [address] (test icnj=9769) [facility] [address] POCT-GLUCOSE [id number] 06:12:00 Test Item Value Reference Range Comments POC-GLUCOSE METER (BEAKER) 123 mg/dL 70-110 TESTED AT [address] (test bbaf=4809) [facility] [address] RAD, CHEST, 1 VIEW, NON [id number] 05:36:00Reason for exam:->respiratory insufficiencyFINAL REPORT Chest one view. Clinical history: respiratory insufficiency Comparison: Chest radiograph 07/22/2017 Technique: A single frontal view of the chest was obtained. Findings: Cardiomediastinal contours are unchanged. There is a right IJ [place]-Jagdeep catheter, with tip inthe right pulmonary artery. [...] Ramirez Verified Date/Time: 07/23/2017 05:36:35 Reading Location: [address] Reading Room CALCIUM, [id number] 05:19:00 Test Item Value Reference Range Comments CALCIUM IONIZED (BEAKER) (test enmz=291) 1.12 mmol/L 1.12-1.27 PH, BLOOD (BEAKER) (test thqf=7261) 7.40 OXYGEN SATURATION, [id number] 05:18:00 Test Item Value Reference Range Comments O2 SATURATION (MEASURED) (BEAKER) (test fdml=5411) 63.1 % POCT-GLUCOSE [id number] 05:05:00 Test Item Value Reference Range Comments POC-GLUCOSE METER (BEAKER) 131 mg/dL 70-110 TESTED AT [facility] [address] [facility] (test vrwv=1436) [facility] [address] BLOOD GAS, [id number] 04:58:00 Test Item Value Reference Range Comments PH ARTERIAL (BEAKER) (test swje=822) 7.41 7.35-7.45 PCO2 ARTERIAL (BEAKER) (test nceo=872) 51 mmHg 35-45 PO2 ARTERIAL (BEAKER) (test mtab=649) 93 mmHg 80-90 O2 SATURATION ARTERIAL (BEAKER) (test iymq=069) 96.9 % 96.0-97.0 HCO3 ARTERIAL (BEAKER) (test bvlv=690) 31 mmol/L 21-29 BASE EXCESS ARTERIAL (BEAKER) (test wzvh=875) 5.9 mmol/L -2.0-3.0 PATIENT TEMPERATURE (BEAKER) (test uacf=6277) 37.4 C FIO2 (BEAKER) (test caly=5947) 70.0 % [id number] 03:35:00 Test Item Value Reference Range Comments PARTIAL THROMBOPLASTIN TIME (BEAKER) (test 70.8 seconds 22.5-36.0 seku=442) [id number] 03:34:00 Test Item Value Reference Range Comments PHOSPHORUS (BEAKER) (test himu=769) 3.0 mg/dL 2.3-4.7 [id number] 03:34:00 Test Item Value Reference Range Comments MAGNESIUM (BEAKER) (test vfwh=285) 2.1 mg/dL 1.6-2.6 BASIC METABOLIC [id number] 03:34:00 Test Item Value Reference Range Comments SODIUM (BEAKER) (test 144 meq/L 136-145 gtpp=418) POTASSIUM (BEAKER) (test 3.9 meq/L 3.5-5.1 vjwt=073) CHLORIDE (BEAKER) (test 105 meq/L 98-107 xoio=511) CO2 (BEAKER) (test 29 meq/L 22-29 iqke=007) BLOOD UREA NITROGEN 29 mg/dL 7-21 (BEAKER) (test xhzj=486) CREATININE (BEAKER) (test 1.54 mg/dL 0.57-1.25 zavn=943) GLUCOSE RANDOM (BEAKER) 119 mg/dL 70-105 (test bism=449) CALCIUM (BEAKER) (test 9.1 mg/dL 8.4-10.2 ypba=402) EGFR (BEAKER) (test 40 mL/min/1.73 sq m ESTIMATED GFR IS NOT egvw=8587) ACCURATE CREATININE CLEARANCE IN PREDICTING GLOMERULAR FILTRATION RATE. ESTIMATED GFR IS NOT APPLICABLE FOR DIALYSIS PATIENTS. HEPATIC FUNCTION [id number] 03:34:00 Test Item Value Reference Range Comments TOTAL PROTEIN (BEAKER) (test pksn=886) 6.7 gm/dL 6.0-8.3 ALBUMIN (BEAKER) (test ahgl=2148) 3.3 g/dL 3.5-5.0 BILIRUBIN TOTAL (BEAKER) (test pcow=019) 1.2 mg/dL 0.2-1.2 BILIRUBIN DIRECT (BEAKER) (test yacj=680) 0.6 mg/dL 0.1-0.5 ALKALINE PHOSPHATASE (BEAKER) (test bekh=030) 51 U/L 40-150 AST (SGOT) (BEAKER) (test hdpb=993) 48 U/L 5-34 ALT (SGPT) (BEAKER) (test rnkt=796) 29 U/L 6-55 LACTATE DEHYDROGENASE (LDH)2017-07-23 03:34:00 Test Item Value Reference Range Comments LACTATE DEHYDROGENASE (BEAKER) (test pfoo=990) 1020 U/L 125-220 CBC W/PLT COUNT & AUTO [id number] 03:25:00 Test Item Value Reference Range Comments WHITE BLOOD CELL COUNT (BEAKER) (test cmta=186) 11.7 K/ L 3.5-10.5 RED BLOOD CELL COUNT (BEAKER) (test hdwz=852) 3.01 M/ L 3.93-5.22 HEMOGLOBIN (BEAKER) (test ghwx=368) 9.0 GM/DL 11.2-15.7 HEMATOCRIT (BEAKER) (test zkzl=433) 28.9 % 34.1-44.9 MEAN CORPUSCULAR VOLUME (BEAKER) (test oyme=594) 96.0 fL 79.4-94.8 MEAN CORPUSCULAR HEMOGLOBIN (BEAKER) (test 29.9 pg 25.6-32.2 piyi=582) MEAN CORPUSCULAR HEMOGLOBIN CONC (BEAKER) (test 31.1 GM/DL 32.2-35.5 xtll=473) RED CELL DISTRIBUTION WIDTH (BEAKER) (test 15.0 % 11.7-14.4 tabx=312) PLATELET COUNT (BEAKER) (test ycii=273) 128 K/CU MM 150-450 MEAN PLATELET VOLUME (BEAKER) (test pdca=728) 11.3 fL 9.4-12.3 NUCLEATED RED BLOOD CELLS (BEAKER) (test 0 /100 WBC 0-0 rxuy=088) NEUTROPHILS RELATIVE PERCENT (BEAKER) (test 78 % gzxx=177) LYMPHOCYTES RELATIVE PERCENT (BEAKER) (test 11 % bnso=433) MONOCYTES RELATIVE PERCENT (BEAKER) (test 10 % fqif=042) EOSINOPHILS RELATIVE PERCENT (BEAKER) (test 1 % tbks=939) BASOPHILS RELATIVE PERCENT (BEAKER) (test 0 % wzuw=304) NEUTROPHILS ABSOLUTE COUNT (BEAKER) (test 9.07 K/ L 1.56-6.13 elxi=551) LYMPHOCYTES ABSOLUTE COUNT (BEAKER) (test 1.25 K/ L 1.18-3.74 djak=234) MONOCYTES ABSOLUTE COUNT (BEAKER) (test 1.12 K/ L 0.24-0.36 gnnw=261) EOSINOPHILS ABSOLUTE COUNT (BEAKER) (test 0.12 K/ L 0.04-0.36 zits=919) BASOPHILS ABSOLUTE COUNT (BEAKER) (test 0.05 K/ L 0.01-0.08 youy=848) IMMATURE GRANULOCYTES-RELATIVE PERCENT (BEAKER) 1 % 0-1 (test ujzs=2224) POCT-GLUCOSE [id number] 03:09:00 Test Item Value Reference Range Comments POC-GLUCOSE METER (BEAKER) 114 mg/dL 70-110 TESTED AT [address] (test paga=4222) [place] [address] POCT-GLUCOSE [id number] 03:09:00 Test Item Value Reference Range Comments POC-GLUCOSE METER (BEAKER) 122 mg/dL 70-110 TESTED AT [address] (test cqmz=5912) [place] [id number] BASIC METABOLIC [id number] 00:32:00 Test Item Value Reference Range Comments SODIUM (BEAKER) (test 144 meq/L 136-145 ulse=242) POTASSIUM (BEAKER) (test 4.2 meq/L 3.5-5.1 kcwl=752) CHLORIDE (BEAKER) (test 105 meq/L 98-107 wfvk=592) CO2 (BEAKER) (test 28 meq/L 22-29 sozv=187) BLOOD UREA NITROGEN 30 mg/dL 7-21 (BEAKER) (test qnbf=513) CREATININE (BEAKER) (test 1.56 mg/dL 0.57-1.25 yxuj=017) GLUCOSE RANDOM (BEAKER) 131 mg/dL 70-105 (test fetk=015) CALCIUM (BEAKER) (test 9.0 mg/dL 8.4-10.2 pgvu=399) EGFR (BEAKER) (test 40 mL/min/1.73 sq m ESTIMATED GFR IS NOT lbcs=3745) ACCURATE CREATININE CLEARANCE IN PREDICTING GLOMERULAR FILTRATION RATE. ESTIMATED GFR IS NOT APPLICABLE FOR DIALYSIS PATIENTS. [id number] 00:31:00 Test Item Value Reference Range Comments PHOSPHORUS (BEAKER) (test iqzs=386) 3.4 mg/dL 2.3-4.7 POCT-GLUCOSE [id number] 00:10:00 Test Item Value Reference Range Comments POC-GLUCOSE METER (BEAKER) 140 mg/dL 70-110 TESTED AT [address] (test ttpm=0867) [facility] [address] POCT-GLUCOSE [id number] 00:08:00 Test Item Value Reference Range Comments POC-GLUCOSE METER (BEAKER) 121 mg/dL 70-110 TESTED AT [address] (test tspr=8417) [facility] [address] POCT-GLUCOSE [id number] 00:08:00 Test Item Value Reference Range Comments POC-GLUCOSE METER (BEAKER) 112 mg/dL 70-110 TESTED AT [address] (test djck=1098) [facility] [address] POCT-GLUCOSE [id number] 00:08:00 Test Item Value Reference Range Comments POC-GLUCOSE METER (BEAKER) 84 mg/dL 70-110 TESTED AT [address] (test tzvw=9400) [facility] [address] BASIC METABOLIC [id number] 20:36:00 Test Item Value Reference Range Comments SODIUM (BEAKER) (test 145 meq/L 136-145 qigp=072) POTASSIUM (BEAKER) (test 3.6 meq/L 3.5-5.1 vbae=756) CHLORIDE (BEAKER) (test 106 meq/L 98-107 arul=187) CO2 (BEAKER) (test 31 meq/L 22-29 qozq=676) BLOOD UREA NITROGEN 32 mg/dL 7-21 (BEAKER) (test cnzk=030) CREATININE (BEAKER) (test 1.56 mg/dL 0.57-1.25 kmfh=103) GLUCOSE RANDOM (BEAKER) 85 mg/dL 70-105 (test insr=345) CALCIUM (BEAKER) (test 9.0 mg/dL 8.4-10.2 vfiy=630) EGFR (BEAKER) (test 40 mL/min/1.73 sq m ESTIMATED GFR IS NOT twdg=6770) ACCURATE CREATININE CLEARANCE IN PREDICTING GLOMERULAR FILTRATION RATE. ESTIMATED GFR IS NOT APPLICABLE FOR DIALYSIS PATIENTS. [id number] 20:36:00 Test Item Value Reference Range Comments MAGNESIUM (BEAKER) (test uphf=107) 2.4 mg/dL 1.6-2.6 [id number] 18:26:00 Test Item Value Reference Range Comments PHOSPHORUS (BEAKER) (test tsvt=785) 2.4 mg/dL 2.3-4.7 BASIC METABOLIC [id number] 18:26:00 Test Item Value Reference Range Comments SODIUM (BEAKER) (test 144 meq/L 136-145 aatm=760) POTASSIUM (BEAKER) (test 3.9 meq/L 3.5-5.1 osat=879) CHLORIDE (BEAKER) (test 106 meq/L 98-107 jldh=540) CO2 (BEAKER) (test 30 meq/L 22-29 awaf=132) BLOOD UREA NITROGEN 32 mg/dL 7-21 (BEAKER) (test vviy=410) CREATININE (BEAKER) (test 1.67 mg/dL 0.57-1.25 keqh=240) GLUCOSE RANDOM (BEAKER) 141 mg/dL 70-105 (test hzwx=164) CALCIUM (BEAKER) (test 9.1 mg/dL 8.4-10.2 zkls=392) EGFR (BEAKER) (test 37 mL/min/1.73 sq m ESTIMATED GFR IS NOT soyw=7062) ACCURATE CREATININE CLEARANCE IN PREDICTING GLOMERULAR FILTRATION RATE. ESTIMATED GFR IS NOT APPLICABLE FOR DIALYSIS PATIENTS. LACTIC ACID, ARTERIAL, WHOLE [id number] 18:22:00 Test Item Value Reference Range Comments LACTATE BLOOD ARTERIAL (2) (BEAKER) (test 1.0 mmol/L 0.5-2.2 xseq=6329) Effective 08/06/2015: Units/Reference Range ChangeNew: 0.5-2.2 mmol/L Previous: 5 -20 mg/dLPOCT-GLUCOSE [id number] 17:56:00 Test Item Value Reference Range Comments POC-GLUCOSE METER (BEAKER) 138 mg/dL 70-110 TESTED AT [address] (test dugq=6426) [facility] [address] [id number] 16:19:00 Test Item Value Reference Range Comments POTASSIUM (BEAKER) (test pfey=892) 3.8 meq/L 3.5-5.1 PRN - repeat potassium levels every 1 hour until glucose level is less than 450 mg/[id number] 16:06:00 Test Item Value Reference Range Comments PARTIAL THROMBOPLASTIN TIME (BEAKER) (test 71.3 seconds 22.5-36.0 tnab=550) OXYGEN SATURATION, [id number] 15:58:00 Test Item Value Reference Range Comments O2 SATURATION (MEASURED) (BEAKER) (test wmyf=4888) 58.6 % calibrationPOCT-GLUCOSE [id number] 15:51:00 Test Item Value Reference Range Comments POC-GLUCOSE METER ([facility]) 147 mg/dL 70-110 TESTED AT [address] (test wapf=9958) [facility] [address] RAD, CHEST, 1 VIEW, NON [id number] 14:57:00Reason for exam:->s/p CVC placement Should this be performed at the bedside?->YesFINAL REPORT TECHNIQUE: Frontal chest radiograph dated 07/22/2017. CLINICAL HISTORY: CVC placement COMPARISON STUDY: Chest radiograph performed earlier the same day. IMPRESSION:There has been interval placement of a right-sided [place]- Jagdeep catheter with the tip in the main pulmonary artery. Impella device is unchanged in appearance. There is left lung base atelectasis. No pleural effusion or pneumothorax. Cardiomediastinal silhouette is normal in size. No pulmonary edema. Bonesare osteopenic. No fracture. Signed: Dawson Noeleport Verified Date/Time: 07/22/2017 14:57:48 Reading Location: [facility] Radiology Reading Room PROTEIN ELECTROPHORESIS, [id number] 14:45:00 Test Item Value Reference Range Comments ALBUMIN FRACTION (BEAKER) 3.0 g/dL 3.5-5.5 (test wvlo=152) ALPHA 1 FRACTION (BEAKER) 0.4 g/dL 0.2-0.4 (test kgvh=823) ALPHA 2 FRACTION (BEAKER) 0.5 g/dL 0.5-0.9 (test laog=325) BETA FRACTION (BEAKER) (test 1.0 g/dL 0.6-1.1 rgmw=406) GAMMA GLOBULIN FRACTION 1.2 g/dL 0.7-1.7 (BEAKER) (test gfmj=545) INTERPRETATION-119 (BEAKER) Albumin decreased. Alpha (test xseh=4520) globulin percentages increased. This suggests an acute phase response. [id number] (BEAKER) Анна Encarnacion MD (electronic (test becp=0054) signature) PROTEIN TOTAL SERUM, SPEP 6.1 gm/dL 6.0-8.3 (BEAKER) (test awfz=6991) POCT-GLUCOSE [id number] 14:34:00 Test Item Value Reference Range Comments POC-GLUCOSE METER (BEAKER) 137 mg/dL 70-110 TESTED AT [facility] [address] [facility] (test gkvn=3904) [facility] [address] ANTI-NUCLEAR ANTIBODY (ROSLYN)2017-07-22 13:24:00 Test Item Value Reference Range Comments ANTI-NUCLEAR ANTIBODY (ROSLYN) (BEAKER) (test Positive Negative rpgo=970) ROSLYN TITER AND [id number] 13:24:00 Test Item Value Reference Range Comments ROSLYN TITER (BEAKER) (test ndgz=6114) :640 ROSLYN PATTERN (BEAKER) (test mwtp=2991) Homogeneous [id number] 12:50:00 Test Item Value Reference Range Comments PHOSPHORUS (BEAKER) (test mmzk=958) 2.5 mg/dL 2.3-4.7 BASIC METABOLIC [id number] 12:50:00 Test Item Value Reference Range Comments SODIUM (BEAKER) (test 145 meq/L 136-145 xquv=307) POTASSIUM (BEAKER) (test 3.6 meq/L 3.5-5.1 itiw=940) CHLORIDE (BEAKER) (test 107 meq/L 98-107 cblw=094) CO2 (BEAKER) (test 30 meq/L 22-29 jecx=178) BLOOD UREA NITROGEN 37 mg/dL 7-21 (BEAKER) (test xcuv=621) CREATININE (BEAKER) (test 1.69 mg/dL 0.57-1.25 rhuc=518) GLUCOSE RANDOM (BEAKER) 154 mg/dL 70-105 (test xblo=865) CALCIUM (BEAKER) (test 8.9 mg/dL 8.4-10.2 uxpo=634) EGFR (BEAKER) (test 36 mL/min/1.73 sq m ESTIMATED GFR IS NOT gkha=3759) ACCURATE CREATININE CLEARANCE IN PREDICTING GLOMERULAR FILTRATION RATE. ESTIMATED GFR IS NOT APPLICABLE FOR DIALYSIS PATIENTS. BLOOD GAS, [id number] 12:36:00 Test Item Value Reference Range Comments PH ARTERIAL (BEAKER) (test oohl=623) 7.48 7.35-7.45 PCO2 ARTERIAL (BEAKER) (test dniy=141) 44 mmHg 35-45 PO2 ARTERIAL (BEAKER) (test nykm=109) 156 mmHg 80-90 O2 SATURATION ARTERIAL (BEAKER) (test xzdw=941) 99.1 % 96.0-97.0 HCO3 ARTERIAL (BEAKER) (test qgck=200) 32 mmol/L 21-29 BASE EXCESS ARTERIAL (BEAKER) (test necn=122) 7.4 mmol/L -2.0-3.0 PATIENT TEMPERATURE (BEAKER) (test einy=4439) 37.4 C FIO2 (BEAKER) (test jrvl=5966) 80.0 % POCT-GLUCOSE [id number] 12:26:00 Test Item Value Reference Range Comments POC-GLUCOSE METER (BEAKER) 147 mg/dL 70-110 TESTED AT [address] (test upqf=4145) [place] [address] URINE [id number] 11:56:00 Test Item Value Reference Range Comments CULTURE (BEAKER) (test vels=5921) No growth POCT-GLUCOSE [id number] 11:11:00 Test Item Value Reference Range Comments POC-GLUCOSE METER (BEAKER) 172 mg/dL 70-110 TESTED AT [address] (test kijv=0078) [place] [id number] POCT-GLUCOSE [id number] 09:54:00 Test Item Value Reference Range Comments POC-GLUCOSE METER (BEAKER) 196 mg/dL 70-110 TESTED AT [address] (test lfsv=7775) [place] [id number] LACTIC ACID, ARTERIAL, WHOLE [id number] 09:07:00 Test Item Value Reference Range Comments LACTATE BLOOD ARTERIAL (2) (BEAKER) (test 0.7 mmol/L 0.5-2.2 jipv=9257) Effective 08/06/2015: Units/Reference Range ChangeNew: 0.5-2.2 mmol/L Previous: 5 -20 mg/[id number] 09:06:00 Test Item Value Reference Range Comments MAGNESIUM (BEAKER) (test hduc=583) 2.2 mg/dL 1.6-2.6 POCT-GLUCOSE [id number] 08:39:00 Test Item Value Reference Range Comments POC-GLUCOSE METER (BEAKER) 188 mg/dL 70-110 TESTED AT [address] (test mcbq=6287) [place] [id number] POCT-GLUCOSE [id number] 08:37:00 Test Item Value Reference Range Comments POC-GLUCOSE METER (BEAKER) 195 mg/dL 70-110 TESTED AT [address] (test kzsq=3947) [facility] [address] BLOOD GAS, [id number] 06:46:00 Test Item Value Reference Range Comments PH ARTERIAL (BEAKER) (test dmyp=848) 7.47 7.35-7.45 PCO2 ARTERIAL (BEAKER) (test prlu=520) 44 mmHg 35-45 PO2 ARTERIAL (BEAKER) (test ebni=618) 57 mmHg 80-90 O2 SATURATION ARTERIAL (BEAKER) (test rzdy=745) 91.1 % 96.0-97.0 HCO3 ARTERIAL (BEAKER) (test caly=693) 32 mmol/L 21-29 BASE EXCESS ARTERIAL (BEAKER) (test amzk=302) 7.1 mmol/L -2.0-3.0 PATIENT TEMPERATURE (BEAKER) (test ymea=3658) 37.0 C [id number] 06:14:00 Test Item Value Reference Range Comments RPR SCREEN (BEAKER) (test okfi=266) Nonreactive Nonreactive CALCIUM, [id number] 05:52:00 Test Item Value Reference Range Comments CALCIUM IONIZED (BEAKER) (test mzya=613) 1.13 mmol/L 1.12-1.27 PH, BLOOD (BEAKER) (test xvci=7899) 7.46 [id number] 05:42:00 Test Item Value Reference Range Comments PHOSPHORUS (BEAKER) (test awwf=275) 2.2 mg/dL 2.3-4.7 [id number] 05:42:00 Test Item Value Reference Range Comments MAGNESIUM (BEAKER) (test lteg=527) 2.1 mg/dL 1.6-2.6 HEPATIC FUNCTION [id number] 05:42:00 Test Item Value Reference Range Comments TOTAL PROTEIN (BEAKER) (test glnq=604) 6.2 gm/dL 6.0-8.3 ALBUMIN (BEAKER) (test vasi=9532) 3.1 g/dL 3.5-5.0 BILIRUBIN TOTAL (BEAKER) (test ejwv=096) 1.4 mg/dL 0.2-1.2 BILIRUBIN DIRECT (BEAKER) (test uqta=988) 0.7 mg/dL 0.1-0.5 ALKALINE PHOSPHATASE (BEAKER) (test nzfk=427) 49 U/L 40-150 AST (SGOT) (BEAKER) (test ngms=110) 74 U/L 5-34 ALT (SGPT) (BEAKER) (test wkhg=805) 37 U/L 6-55 LACTATE DEHYDROGENASE (LDH)2017-07-22 05:42:00 Test Item Value Reference Range Comments LACTATE DEHYDROGENASE (BEAKER) (test glao=074) 1339 U/L 125-220 [id number] 05:40:00 Test Item Value Reference Range Comments PHOSPHORUS (BEAKER) (test iwxm=871) 2.2 mg/dL 2.3-4.7 BASIC METABOLIC [id number] 05:40:00 Test Item Value Reference Range Comments SODIUM (BEAKER) (test 144 meq/L 136-145 cxzj=830) POTASSIUM (BEAKER) (test 4.0 meq/L 3.5-5.1 gtsi=620) CHLORIDE (BEAKER) (test 107 meq/L 98-107 pcjf=412) CO2 (BEAKER) (test 28 meq/L 22-29 bzqm=231) BLOOD UREA NITROGEN 36 mg/dL 7-21 (BEAKER) (test wkgs=912) CREATININE (BEAKER) (test 1.79 mg/dL 0.57-1.25 rtsw=165) GLUCOSE RANDOM (BEAKER) 183 mg/dL 70-105 (test mmxl=404) CALCIUM (BEAKER) (test 8.9 mg/dL 8.4-10.2 ystw=072) EGFR (BEAKER) (test 34 mL/min/1.73 sq m ESTIMATED GFR IS NOT uyww=5204) ACCURATE CREATININE CLEARANCE IN PREDICTING GLOMERULAR FILTRATION RATE. ESTIMATED GFR IS NOT APPLICABLE FOR DIALYSIS PATIENTS. OXYGEN SATURATION, [id number] 05:29:00 Test Item Value Reference Range Comments O2 SATURATION (MEASURED) (BEAKER) (test gyvn=6336) 54.7 % [id number] 05:29:00 Test Item Value Reference Range Comments PARTIAL THROMBOPLASTIN TIME (BEAKER) (test 70.7 seconds 22.5-36.0 bnre=712) CBC W/PLT COUNT & AUTO [id number] 05:24:00 Test Item Value Reference Range Comments WHITE BLOOD CELL COUNT (BEAKER) (test tewr=009) 13.0 K/ L 3.5-10.5 RED BLOOD CELL COUNT (BEAKER) (test lvij=477) 3.04 M/ L 3.93-5.22 HEMOGLOBIN (BEAKER) (test pytc=280) 9.0 GM/DL 11.2-15.7 HEMATOCRIT (BEAKER) (test hezp=181) 29.0 % 34.1-44.9 MEAN CORPUSCULAR VOLUME (BEAKER) (test trho=233) 95.4 fL 79.4-94.8 MEAN CORPUSCULAR HEMOGLOBIN (BEAKER) (test 29.6 pg 25.6-32.2 yzwa=644) MEAN CORPUSCULAR HEMOGLOBIN CONC (BEAKER) (test 31.0 GM/DL 32.2-35.5 judd=060) RED CELL DISTRIBUTION WIDTH (BEAKER) (test 15.5 % 11.7-14.4 tbpy=232) PLATELET COUNT (BEAKER) (test fpea=310) 132 K/CU MM 150-450 MEAN PLATELET VOLUME (BEAKER) (test jeoa=973) 11.4 fL 9.4-12.3 NUCLEATED RED BLOOD CELLS (BEAKER) (test 0 /100 WBC 0-0 ckfa=910) NEUTROPHILS RELATIVE PERCENT (BEAKER) (test 80 % iame=394) LYMPHOCYTES RELATIVE PERCENT (BEAKER) (test 10 % nrsm=919) MONOCYTES RELATIVE PERCENT (BEAKER) (test 9 % jzwt=324) EOSINOPHILS RELATIVE PERCENT (BEAKER) (test 0 % fykc=965) BASOPHILS RELATIVE PERCENT (BEAKER) (test 0 % xwyn=092) NEUTROPHILS ABSOLUTE COUNT (BEAKER) (test 10.44 K/ L 1.56-6.13 knlv=976) LYMPHOCYTES ABSOLUTE COUNT (BEAKER) (test 1.29 K/ L 1.18-3.74 ftkp=317) MONOCYTES ABSOLUTE COUNT (BEAKER) (test 1.12 K/ L 0.24-0.36 bjvk=936) EOSINOPHILS ABSOLUTE COUNT (BEAKER) (test 0.01 K/ L 0.04-0.36 lwaz=343) BASOPHILS ABSOLUTE COUNT (BEAKER) (test 0.04 K/ L 0.01-0.08 etvb=738) IMMATURE GRANULOCYTES-RELATIVE PERCENT (BEAKER) 1 % 0-1 (test wmkw=7581) RAD, CHEST, 1 VIEW, NON [id number] 04:45:00Reason for exam:->respiratory insufficiencyFINAL REPORT CLINICAL INDICATION: Respiratory insufficiency Comparison: 07/21/2017 The cardiomediastinal contours are stable. The left hemidiaphragm is slightly elevated. Centralpulmonary vascular congestion and bilateral parenchymal opacities are unchanged. There is no pneumothorax. A femoral Impella device remains in place. Signed: Adelso Sorensen Verified Date/Time:07/22/2017 04:45:12 Reading Location: [address] Reading Room POCT-GLUCOSE [id number] 03:01:00 Test Item Value Reference Range Comments POC-GLUCOSE METER (BEAKER) 115 mg/dL 70-110 TESTED AT [address] (test nman=6897) [facility] [address] POCT-GLUCOSE [id number] 00:14:00 Test Item Value Reference Range Comments POC-GLUCOSE METER (BEAKER) 137 mg/dL 70-110 TESTED AT [address] (test visx=2983) [facility] [address] [id number] 00:09:00 Test Item Value Reference Range Comments POTASSIUM (BEAKER) (test esln=518) 3.8 meq/L 3.5-5.1 PRN - repeat glucose levels every 1 hour or as specified by insulin titration orders until glucose level is less than 450 mg/dLCheck Serum Potassium level 2 hours after oral potassium replacement completed or 30 min after intravenous potassium replacement.[id number] 00:09:00 Test Item Value Reference Range Comments MAGNESIUM (BEAKER) (test rtoj=429) 2.5 mg/dL 1.6-2.6 PRN - repeat glucose levels every 1 hour or as specified by insulin titration orders until glucose level is less than 450 mg/dLCheck Serum Potassium level 2 hours after oral potassium replacement completed or 30 min after intravenous potassium replacement.[id number] 00:09:00 Test Item Value Reference Range Comments PHOSPHORUS (BEAKER) (test jfkj=468) 1.9 mg/dL 2.3-4.7 PRN - repeat glucose levels every 1 hour or as specified by insulin titration orders until glucose level is less than 450 mg/dLCheck Serum Potassium level 2 hours after oral potassium replacement completed or 30 min after intravenous potassium replacement.[id number] 00:09:00 Test Item Value Reference Range Comments GLUCOSE RANDOM (BEAKER) (test muyr=313) 155 mg/dL 70-105 PRN - repeat glucose levels every 1 hour or as specified by insulin titration orders until glucose level is less than 450 mg/dLCheck Serum Potassium level 2 hours after oral potassium replacement completed or 30 min after intravenous potassium replacement.BASIC METABOLIC [id number] 00:09:00 Test Item Value Reference Range Comments SODIUM (BEAKER) (test 142 meq/L 136-145 lgfx=043) POTASSIUM (BEAKER) (test 3.8 meq/L 3.5-5.1 xzrj=882) CHLORIDE (BEAKER) (test 105 meq/L 98-107 qjpj=161) CO2 (BEAKER) (test 30 meq/L 22-29 rpnj=458) BLOOD UREA NITROGEN 37 mg/dL 7-21 (BEAKER) (test hqii=288) CREATININE (BEAKER) (test 1.80 mg/dL 0.57-1.25 icjd=849) GLUCOSE RANDOM (BEAKER) 155 mg/dL 70-105 (test yavb=934) CALCIUM (BEAKER) (test 8.8 mg/dL 8.4-10.2 dbwb=811) EGFR (BEAKER) (test 34 mL/min/1.73 sq m ESTIMATED GFR IS NOT qaly=0920) ACCURATE CREATININE CLEARANCE IN PREDICTING GLOMERULAR FILTRATION RATE. ESTIMATED GFR IS NOT APPLICABLE FOR DIALYSIS PATIENTS. PRN - repeat glucose levels every 1 hour or as specified by insulin titration orders until glucose level is less than 450 mg/dLCheck Serum Potassium level 2 hours after oral potassium replacement completed or 30 min after intravenous potassium replacement.[id number] 00:06:00 Test Item Value Reference Range Comments PARTIAL THROMBOPLASTIN TIME (BEAKER) (test 62.0 seconds 22.5-36.0 qfal=224) BLOOD GAS, [id number] 20:39:00 Test Item Value Reference Range Comments PH ARTERIAL (BEAKER) (test zoqb=642) 7.45 7.35-7.45 PCO2 ARTERIAL (BEAKER) (test tikl=431) 46 mmHg 35-45 PO2 ARTERIAL (BEAKER) (test dbnu=738) 64 mmHg 80-90 O2 SATURATION ARTERIAL (BEAKER) (test smdu=246) 92.0 % 96.0-97.0 HCO3 ARTERIAL (BEAKER) (test mtxg=211) 31 mmol/L 21-29 BASE EXCESS ARTERIAL (BEAKER) (test duix=218) 6.7 mmol/L -2.0-3.0 PATIENT TEMPERATURE (BEAKER) (test ojtz=8038) 38.1 C FIO2 (BEAKER) (test smwb=8576) 80.0 % POTASSIUM-STAT [id number] 20:39:00 Test Item Value Reference Range Comments POTASSIUM (BEAKER) (test ijkg=267) 3.4 meq/L 3.6-5.5 [id number] 20:16:00 Test Item Value Reference Range Comments FERRITIN (BEAKER) (test dcxu=158) 651 ng/mL 5-275 POCT-GLUCOSE [id number] 20:10:00 Test Item Value Reference Range Comments POC-GLUCOSE METER (BEAKER) 180 mg/dL 70-110 TESTED AT [facility] [address] (test jyll=1468) [facility] [address] POCT-GLUCOSE [id number] 20:10:00 Test Item Value Reference Range Comments POC-GLUCOSE METER (BEAKER) 197 mg/dL 70-110 TESTED AT [facility] [address] (test kesb=5110) [place] [address] [id number] 19:54:00 Test Item Value Reference Range Comments PARTIAL THROMBOPLASTIN TIME (BEAKER) (test 62.4 seconds 22.5-36.0 bmsh=139) [id number] 19:53:00 Test Item Value Reference Range Comments MAGNESIUM (BEAKER) (test fgyp=432) 2.2 mg/dL 1.6-2.6 HEPATITIS A ANTIBODY, [id number] 19:25:00 Test Item Value Reference Range Comments HEPATITIS A IGG ANTIBODY (BEAKER) (test jqpg=4562) Reactive Nonreactive GLUCOSE-STAT [id number] 19:24:00 Test Item Value Reference Range Comments GLUCOSE RANDOM (BEAKER) (test bzou=704) 174 mg/dL 70-110 HGB/HCT (H&H) - STAT [id number] 19:24:00 Test Item Value Reference Range Comments HEMOGLOBIN (BEAKER) (test jbjl=018) 10.1 g/dL 12.0-15.0 HEMATOCRIT (BEAKER) (test mivf=452) 30.0 % 36.0-45.0 POTASSIUM-STAT [id number] 19:24:00 Test Item Value Reference Range Comments POTASSIUM (BEAKER) (test fiad=435) 3.4 meq/L 3.6-5.5 HEPATITIS B CORE ANTIBODY, [id number] 19:21:00 Test Item Value Reference Range Comments HEPATITIS B CORE TOTAL ANTIBODY (BEAKER) (test Nonreactive Nonreactive dyup=833) HEPATITIS PANEL, [id number] 19:21:00 Test Item Value Reference Range Comments HEPATITIS A IGM ANTIBODY (BEAKER) (test Nonreactive Nonreactive zvrq=335) HEPATITIS B CORE IGM ANTIBODY (BEAKER) (test Nonreactive Nonreactive xoux=321) HEPATITIS C ANTIBODY (BEAKER) (test hwmo=196) Nonreactive Nonreactive HEPATITIS B SURFACE ANTIGEN (2) (BEAKER) (test Nonreactive Nonreactive noit=1074) HIV-1 ANTIGEN WITH HIV-1/2 [id number] 19:21:00 Test Item Value Reference Range Comments HIV-1 ANTIGEN WITH HIV 1\T\2 ANTIBODY (2) Nonreactive Nonreactive (BEAKER) (test upjj=0973) BASIC METABOLIC [id number] 18:05:00 Test Item Value Reference Range Comments SODIUM (BEAKER) (test 141 meq/L 136-145 razp=638) POTASSIUM (BEAKER) (test 4.0 meq/L 3.5-5.1 pjbz=946) CHLORIDE (BEAKER) (test 104 meq/L 98-107 oght=035) CO2 (BEAKER) (test 26 meq/L 22-29 ewdo=262) BLOOD UREA NITROGEN 41 mg/dL 7-21 (BEAKER) (test yorh=102) CREATININE (BEAKER) (test 2.07 mg/dL 0.57-1.25 hmaw=094) GLUCOSE RANDOM (BEAKER) 242 mg/dL 70-105 (test uyuv=318) CALCIUM (BEAKER) (test 8.9 mg/dL 8.4-10.2 gfyl=713) EGFR (BEAKER) (test 29 mL/min/1.73 sq m ESTIMATED GFR IS NOT eflb=2296) ACCURATE CREATININE CLEARANCE IN PREDICTING GLOMERULAR FILTRATION RATE. ESTIMATED GFR IS NOT APPLICABLE FOR DIALYSIS PATIENTS. Check Serum Potassium level 2 hours after oral potassium replacement completed or 30 min after intravenous potassium replacement.[id number] 18:02:00 Test Item Value Reference Range Comments POTASSIUM (BEAKER) (test xbzn=225) 4.0 meq/L 3.5-5.1 Check Serum Potassium level 2 hours after oral potassium replacement completed or 30 min after intravenous potassium replacement.[id number] 18:02:00 Test Item Value Reference Range Comments MAGNESIUM (BEAKER) (test zhgb=044) 2.2 mg/dL 1.6-2.6 Check Serum Potassium level 2 hours after oral potassium replacement completed or 30 min after intravenous potassium replacement.[id number] 18:02:00 Test Item Value Reference Range Comments PHOSPHORUS (BEAKER) (test ayqa=500) 2.1 mg/dL 2.3-4.7 Check Serum Potassium level 2 hours after oral potassium replacement completed or 30 min after intravenous potassium replacement.POCT-GLUCOSE [id number] 17:31:00 Test Item Value Reference Range Comments POC-GLUCOSE METER (BEAKER) 253 mg/dL 70-110 TESTED AT [facility] [address] (test dczi=9271) [facility] [address] VITAMIN D, [id number] 17:31:00 Test Item Value Reference Range Comments VITAMIN D 25-OH (BEAKER) (test mdpo=0457) 5.8 ng/mL 6.6-49.9 Effective 01/12/2017: Reference Range ChangeNew: 6.6-49.9 ng/mL Previous: 13.0 -47.8 ng/mLRecommended Vitamin D Target Range: 30.0-40.0 ng/mLPOCT-GLUCOSE [id number] 17:31:00 Test Item Value Reference Range Comments POC-GLUCOSE METER (BEAKER) 269 mg/dL 70-110 TESTED AT [facility] [address] (test alue=5150) [facility] [address] [id number] 17:09:00 Test Item Value Reference Range Comments TRANSFERRIN (BEAKER) (test ewwd=385) 166 mg/dL 174-382 [id number] 17:09:00 Test Item Value Reference Range Comments PREALBUMIN (BEAKER) (test bwly=859) 14 mg/dL 14-45 IRON, [id number] 17:09:00 Test Item Value Reference Range Comments IRON (BEAKER) (test nlgx=256) 57 ug/dL 40-160 TROPONIN [id number] 16:59:00 Test Item Value Reference Range Comments TROPONIN I (BEAKER) (test kxxb=585) 45.70 ng/mL 0.00-0.03 Troponin I (TnI) levels [...] failure, acidosis, acute neurological disease, and persistent tachyarrhythmia.[id number] 16:49:00 Test Item Value Reference Range Comments CREATININE (BEAKER) (test 2.17 mg/dL 0.57-1.25 cvtb=692) EGFR (BEAKER) (test 27 mL/min/1.73 sq m ESTIMATED GFR IS NOT aouj=9457) ACCURATE CREATININE CLEARANCE IN PREDICTING GLOMERULAR FILTRATION RATE. ESTIMATED GFR IS NOT APPLICABLE FOR DIALYSIS PATIENTS. URIC [id number] 16:48:00 Test Item Value Reference Range Comments URIC ACID (BEAKER) (test hpep=941) 8.2 mg/dL 2.6-7.2 LIPID [id number] 16:48:00 Test Item Value Reference Range Comments TRIGLYCERIDES (BEAKER) (test qgfv=292) 122 mg/dL CHOLESTEROL (BEAKER) (test uyzi=783) 204 mg/dL HDL CHOLESTEROL (BEAKER) (test wceg=020) 85 mg/dL LDL CHOLESTEROL CALCULATED (BEAKER) (test 95 mg/dL jbqk=800) Triglyceride Reference Range: Low Risk <150 Borderline 150- 199 High Risk 200-499 Very High Risk >=500Cholesterol Reference Range: Low Risk <200 Borderline 200-239 High Risk > 240HDL Cholesterol Reference Range: Low Risk >=60 High Risk <40LDL Cholesterol Reference Range: Optimal <100 Near Optimal 100-129 Borderline 130-159 High 160-189 Very High >=[id number] 16:48:00 Test Item Value Reference Range Comments AMYLASE (BEAKER) (test ganu=105) 228 U/L 25-125 GAMMA GLUTAMYL TRANSFERASE (GGT)2017-07-21 16:48:00 Test Item Value Reference Range Comments GAMMA GLUTAMYL TRANSFERASE (BEAKER) (test rjoq=272) 52 U/L 9-64 RETICULOCYTE [id number] 16:39:00 Test Item Value Reference Range Comments RETICULOCYTE COUNT PCT (BEAKER) (test givp=337) 3.8 % 0.5-1.7 TROPONIN [id number] 13:49:00 Test Item Value Reference Range Comments TROPONIN I (BEAKER) (test tenq=984) 43.19 ng/mL 0.00-0.03 Troponin I (TnI) levels [...] acute neurological disease, and persistent tachyarrhythmia.BASIC METABOLIC [id number] 12:22:00 Test Item Value Reference Range Comments SODIUM (BEAKER) (test 141 meq/L 136-145 docj=211) POTASSIUM (BEAKER) (test 3.9 meq/L 3.5-5.1 lkmj=097) CHLORIDE (BEAKER) (test 102 meq/L 98-107 vnkt=400) CO2 (BEAKER) (test 28 meq/L 22-29 gsyc=915) BLOOD UREA NITROGEN 40 mg/dL 7-21 (BEAKER) (test dgxu=894) CREATININE (BEAKER) (test 2.20 mg/dL 0.57-1.25 tdvw=457) GLUCOSE RANDOM (BEAKER) 238 mg/dL 70-105 (test bdmw=405) CALCIUM (BEAKER) (test 8.9 mg/dL 8.4-10.2 bkwq=470) EGFR (BEAKER) (test 27 mL/min/1.73 sq m ESTIMATED GFR IS NOT mjtu=6096) ACCURATE CREATININE CLEARANCE IN PREDICTING GLOMERULAR FILTRATION RATE. ESTIMATED GFR IS NOT APPLICABLE FOR DIALYSIS PATIENTS. [id number] 12:17:00 Test Item Value Reference Range Comments POTASSIUM (BEAKER) (test rtmj=900) 3.9 meq/L 3.5-5.1 [id number] 12:17:00 Test Item Value Reference Range Comments MAGNESIUM (BEAKER) (test orgv=345) 2.4 mg/dL 1.6-2.6 [id number] 12:17:00 Test Item Value Reference Range Comments PHOSPHORUS (BEAKER) (test exrk=468) 3.7 mg/dL 2.3-4.7 [id number] 12:17:00 Test Item Value Reference Range Comments GLUCOSE RANDOM (BEAKER) (test ilcp=148) 238 mg/dL 70-105 [id number] 12:04:00 Test Item Value Reference Range Comments PARTIAL THROMBOPLASTIN TIME (BEAKER) (test 59.3 seconds 22.5-36.0 ddgl=808) SPUTUM CULTURE + GRAM [id number] 11:47:00 Test Item Value Reference Range Comments CULTURE (BEAKER) (test <1+ Normal respiratory pascual flda=6604) present GRAM STAIN RESULT (BEAKER) 1+ WBCs (test zkuu=5594) GRAM STAIN RESULT (BEAKER) 0-5 epithelial cells (test hlmo=07017) GRAM STAIN RESULT (BEAKER) No organisms seen (test lgrh=72722) HEMOGLOBIN AND [id number] 11:26:00 Test Item Value Reference Range Comments HEMOGLOBIN (BEAKER) (test qbcr=178) 7.9 GM/DL 11.2-15.7 HEMATOCRIT (BEAKER) (test cfkx=142) 26.5 % 34.1-44.9 BLOOD GAS, [id number] 10:43:00 Test Item Value Reference Range Comments PH ARTERIAL (BEAKER) (test qpjp=559) 7.42 7.35-7.45 PCO2 ARTERIAL (BEAKER) (test cxbe=141) 44 mmHg 35-45 PO2 ARTERIAL (BEAKER) (test qnwg=802) 51 mmHg 80-90 O2 SATURATION ARTERIAL (BEAKER) (test qtan=591) 88.2 % 96.0-97.0 HCO3 ARTERIAL (BEAKER) (test uzjj=823) 28 mmol/L 21-29 BASE EXCESS ARTERIAL (BEAKER) (test svsx=019) 3.2 mmol/L -2.0-3.0 PATIENT TEMPERATURE (BEAKER) (test qxvd=8745) 36.0 C FIO2 (BEAKER) (test lrff=5053) 80.0 % URINE [id number] 09:44:00 Test Item Value Reference Range Comments CULTURE (BEAKER) (test obso=7107) No growth BASIC METABOLIC [id number] 06:28:00 Test Item Value Reference Range Comments SODIUM (BEAKER) (test 141 meq/L 136-145 ewxi=620) POTASSIUM (BEAKER) (test 4.1 meq/L 3.5-5.1 puag=104) CHLORIDE (BEAKER) (test 101 meq/L 98-107 poew=978) CO2 (BEAKER) (test 29 meq/L 22-29 zvqn=770) BLOOD UREA NITROGEN 40 mg/dL 7-21 (BEAKER) (test rvua=086) CREATININE (BEAKER) (test 2.46 mg/dL 0.57-1.25 cxoz=256) GLUCOSE RANDOM (BEAKER) 236 mg/dL 70-105 (test fpge=721) CALCIUM (BEAKER) (test 8.6 mg/dL 8.4-10.2 efav=495) EGFR (BEAKER) (test 24 mL/min/1.73 sq m ESTIMATED GFR IS NOT borv=6560) ACCURATE CREATININE CLEARANCE IN PREDICTING GLOMERULAR FILTRATION RATE. ESTIMATED GFR IS NOT APPLICABLE FOR DIALYSIS PATIENTS. [id number] 06:26:00 Test Item Value Reference Range Comments PHOSPHORUS (BEAKER) (test ujjz=714) 4.6 mg/dL 2.3-4.7 POCT-GLUCOSE [id number] 06:05:00 Test Item Value Reference Range Comments POC-GLUCOSE METER (BEAKER) 278 mg/dL 70-110 TESTED AT [address] (test pinb=9172) [facility] [address] POCT-GLUCOSE [id number] 06:05:00 Test Item Value Reference Range Comments POC-GLUCOSE METER (BEAKER) 231 mg/dL 70-110 TESTED AT [address] (test reae=5645) [facility] [address] POCT-GLUCOSE [id number] 06:05:00 Test Item Value Reference Range Comments POC-GLUCOSE METER (BEAKER) 190 mg/dL 70-110 TESTED AT [address] (test gmer=8001) [facility] [address] [id number] 05:56:00 Test Item Value Reference Range Comments PARTIAL THROMBOPLASTIN TIME (BEAKER) (test 72.5 seconds 22.5-36.0 lyum=789) RAD, CHEST, 1 VIEW, NON [id number] 04:38:00Reason for exam:->respiratory insufficiencyFINAL REPORT CLINICAL INDICATION: Respiratory insufficiency Comparison: 07/20/2017 The cardiomediastinal contours are stable. Central pulmonary vascular prominence and bilateral parenchymal opacities are similar within variation of acquisition technique. There is no pneumothorax. A femoral Impella device is stable in position. Signed: Adelso Sorensen MDReport Verified Date/Time:07/21/2017 04:38:32 Reading Location: [address] Reading Room BASIC METABOLIC [id number] 04:06:00 Test Item Value Reference Range Comments SODIUM (BEAKER) (test 142 meq/L 136-145 rjjv=337) POTASSIUM (BEAKER) (test 3.9 meq/L 3.5-5.1 vbci=569) CHLORIDE (BEAKER) (test 102 meq/L 98-107 mfwp=576) CO2 (BEAKER) (test 31 meq/L 22-29 jvxg=012) BLOOD UREA NITROGEN 40 mg/dL 7-21 (BEAKER) (test uvld=365) CREATININE (BEAKER) (test 2.37 mg/dL 0.57-1.25 emjx=865) GLUCOSE RANDOM (BEAKER) 206 mg/dL 70-105 (test lhxi=196) CALCIUM (BEAKER) (test 8.5 mg/dL 8.4-10.2 farq=226) EGFR (BEAKER) (test 25 mL/min/1.73 sq m ESTIMATED GFR IS NOT gtla=9724) ACCURATE CREATININE CLEARANCE IN PREDICTING GLOMERULAR FILTRATION RATE. ESTIMATED GFR IS NOT APPLICABLE FOR DIALYSIS PATIENTS. BLOOD GAS, [id number] 03:53:00 Test Item Value Reference Range Comments PH ARTERIAL (BEAKER) (test offm=749) 7.36 7.35-7.45 PCO2 ARTERIAL (BEAKER) (test xebu=892) 55 mmHg 35-45 PO2 ARTERIAL (BEAKER) (test whqi=701) 94 mmHg 80-90 O2 SATURATION ARTERIAL (BEAKER) (test glpi=616) 96.0 % 96.0-97.0 HCO3 ARTERIAL (BEAKER) (test csms=441) 30 mmol/L 21-29 BASE EXCESS ARTERIAL (BEAKER) (test bonp=699) 4.2 mmol/L -2.0-3.0 PATIENT TEMPERATURE (BEAKER) (test lysr=1604) 38.8 C FIO2 (BEAKER) (test meso=3215) 80.0 % CALCIUM, [id number] 03:51:00 Test Item Value Reference Range Comments CALCIUM IONIZED (BEAKER) (test mlhu=263) 1.07 mmol/L 1.12-1.27 PH, BLOOD (BEAKER) (test izuw=6436) 7.35 OXYGEN SATURATION, [id number] 03:50:00 Test Item Value Reference Range Comments O2 SATURATION (MEASURED) (BEAKER) (test jafh=1056) 72.6 % [id number] 03:47:00 Test Item Value Reference Range Comments PHOSPHORUS (BEAKER) (test soqp=371) 4.5 mg/dL 2.3-4.7 [id number] 03:47:00 Test Item Value Reference Range Comments MAGNESIUM (BEAKER) (test hryz=566) 2.1 mg/dL 1.6-2.6 HEPATIC FUNCTION [id number] 03:47:00 Test Item Value Reference Range Comments TOTAL PROTEIN (BEAKER) (test xfrr=713) 6.1 gm/dL 6.0-8.3 ALBUMIN (BEAKER) (test trkb=5122) 3.1 g/dL 3.5-5.0 BILIRUBIN TOTAL (BEAKER) (test tnob=365) 1.4 mg/dL 0.2-1.2 BILIRUBIN DIRECT (BEAKER) (test cser=744) 0.6 mg/dL 0.1-0.5 ALKALINE PHOSPHATASE (BEAKER) (test pdlz=779) 45 U/L 40-150 AST (SGOT) (BEAKER) (test gvtb=829) 94 U/L 5-34 ALT (SGPT) (BEAKER) (test jyqm=021) 48 U/L 6-55 LACTATE DEHYDROGENASE (LDH)2017-07-21 03:47:00 Test Item Value Reference Range Comments LACTATE DEHYDROGENASE (BEAKER) (test meza=884) 1470 U/L 125-220 CBC W/PLT COUNT & AUTO [id number] 03:41:00 Test Item Value Reference Range Comments WHITE BLOOD CELL COUNT (BEAKER) (test hdhl=421) 14.1 K/ L 3.5-10.5 RED BLOOD CELL COUNT (BEAKER) (test aiff=312) 2.81 M/ L 3.93-5.22 HEMOGLOBIN (BEAKER) (test wrfa=145) 8.6 GM/DL 11.2-15.7 HEMATOCRIT (BEAKER) (test sejx=791) 28.2 % 34.1-44.9 MEAN CORPUSCULAR VOLUME (BEAKER) (test abfc=338) 100.4 fL 79.4-94.8 MEAN CORPUSCULAR HEMOGLOBIN (BEAKER) (test 30.6 pg 25.6-32.2 skne=461) MEAN CORPUSCULAR HEMOGLOBIN CONC (BEAKER) (test 30.5 GM/DL 32.2-35.5 uheq=821) RED CELL DISTRIBUTION WIDTH (BEAKER) (test 13.1 % 11.7-14.4 dxip=630) PLATELET COUNT (BEAKER) (test pbok=618) 140 K/CU MM 150-450 MEAN PLATELET VOLUME (BEAKER) (test oeng=199) 11.1 fL 9.4-12.3 NUCLEATED RED BLOOD CELLS (BEAKER) (test 0 /100 WBC 0-0 mloq=645) NEUTROPHILS RELATIVE PERCENT (BEAKER) (test 86 % brfa=386) LYMPHOCYTES RELATIVE PERCENT (BEAKER) (test 6 % wpeg=660) MONOCYTES RELATIVE PERCENT (BEAKER) (test 8 % sdmb=330) EOSINOPHILS RELATIVE PERCENT (BEAKER) (test 0 % kjdq=570) BASOPHILS RELATIVE PERCENT (BEAKER) (test 0 % vqva=460) NEUTROPHILS ABSOLUTE COUNT (BEAKER) (test 12.13 K/ L 1.56-6.13 qood=766) LYMPHOCYTES ABSOLUTE COUNT (BEAKER) (test 0.81 K/ L 1.18-3.74 dlel=448) MONOCYTES ABSOLUTE COUNT (BEAKER) (test 1.07 K/ L 0.24-0.36 oikn=104) EOSINOPHILS ABSOLUTE COUNT (BEAKER) (test 0.00 K/ L 0.04-0.36 dxjr=595) BASOPHILS ABSOLUTE COUNT (BEAKER) (test 0.02 K/ L 0.01-0.08 elvu=613) IMMATURE GRANULOCYTES-RELATIVE PERCENT (BEAKER) 1 % 0-1 (test vbmz=5524) LACTIC ACID, ARTERIAL, WHOLE [id number] 03:39:00 Test Item Value Reference Range Comments LACTATE BLOOD ARTERIAL (2) (BEAKER) (test 0.9 mmol/L 0.5-2.2 pbwm=8052) Effective 08/06/2015: Units/Reference Range ChangeNew: 0.5-2.2 mmol/L Previous: 5 -20 mg/dLTROPONIN [id number] 00:12:00 Test Item Value Reference Range Comments TROPONIN I (BEAKER) (test vpyi=135) 60.74 ng/mL 0.00-0.03 Troponin I (TnI) levels [...] failure, acidosis, acute neurological disease, and persistent tachyarrhythmia.[id number] 23:42:00 Test Item Value Reference Range Comments PHOSPHORUS (BEAKER) (test dkve=452) 4.9 mg/dL 2.3-4.7 BASIC METABOLIC [id number] 23:42:00 Test Item Value Reference Range Comments SODIUM (BEAKER) (test 141 meq/L 136-145 yjyj=796) POTASSIUM (BEAKER) (test 4.2 meq/L 3.5-5.1 viws=693) CHLORIDE (BEAKER) (test 102 meq/L 98-107 uyac=078) CO2 (BEAKER) (test 29 meq/L 22-29 wloi=131) BLOOD UREA NITROGEN 40 mg/dL 7-21 (BEAKER) (test jflk=410) CREATININE (BEAKER) (test 2.36 mg/dL 0.57-1.25 xoln=439) GLUCOSE RANDOM (BEAKER) 200 mg/dL 70-105 (test btgb=631) CALCIUM (BEAKER) (test 8.4 mg/dL 8.4-10.2 oewg=657) EGFR (BEAKER) (test 25 mL/min/1.73 sq m ESTIMATED GFR IS NOT usjh=4388) ACCURATE CREATININE CLEARANCE IN PREDICTING GLOMERULAR FILTRATION RATE. ESTIMATED GFR IS NOT APPLICABLE FOR DIALYSIS PATIENTS. [id number] 23:39:00 Test Item Value Reference Range Comments PARTIAL THROMBOPLASTIN TIME (BEAKER) (test 78.1 seconds 22.5-36.0 oaxz=646) POCT-GLUCOSE [id number] 23:28:00 Test Item Value Reference Range Comments POC-GLUCOSE METER (BEAKER) 250 mg/dL 70-110 TESTED AT [facility] [address] (test gjut=9896) [facility] [address] POCT-GLUCOSE [id number] 22:19:00 Test Item Value Reference Range Comments POC-GLUCOSE METER (BEAKER) 202 mg/dL 70-110 TESTED AT [facility] [address] (test agvm=1625) [facility] [address] HEPATIC FUNCTION [id number] 21:45:00 Test Item Value Reference Range Comments TOTAL PROTEIN (BEAKER) (test xfcg=131) 5.9 gm/dL 6.0-8.3 ALBUMIN (BEAKER) (test avpp=6239) 3.1 g/dL 3.5-5.0 BILIRUBIN TOTAL (BEAKER) (test jcwj=317) 1.0 mg/dL 0.2-1.2 BILIRUBIN DIRECT (BEAKER) (test epsm=223) 0.5 mg/dL 0.1-0.5 ALKALINE PHOSPHATASE (BEAKER) (test gzck=690) 46 U/L 40-150 AST (SGOT) (BEAKER) (test jlem=823) 95 U/L 5-34 ALT (SGPT) (BEAKER) (test ttfp=498) 47 U/L 6-55 BASIC METABOLIC [id number] 21:45:00 Test Item Value Reference Range Comments SODIUM (BEAKER) (test 141 meq/L 136-145 sifw=113) POTASSIUM (BEAKER) (test 4.0 meq/L 3.5-5.1 zlrd=954) CHLORIDE (BEAKER) (test 103 meq/L 98-107 wsxl=406) CO2 (BEAKER) (test 27 meq/L 22-29 bbuj=189) BLOOD UREA NITROGEN 40 mg/dL 7-21 (BEAKER) (test szww=719) CREATININE (BEAKER) (test 2.30 mg/dL 0.57-1.25 tbfu=821) GLUCOSE RANDOM (BEAKER) 192 mg/dL 70-105 (test hjui=692) CALCIUM (BEAKER) (test 8.4 mg/dL 8.4-10.2 zeay=633) EGFR (BEAKER) (test 25 mL/min/1.73 sq m ESTIMATED GFR IS NOT rchp=7395) ACCURATE CREATININE CLEARANCE IN PREDICTING GLOMERULAR FILTRATION RATE. ESTIMATED GFR IS NOT APPLICABLE FOR DIALYSIS PATIENTS. [id number] 21:38:00 Test Item Value Reference Range Comments MAGNESIUM (BEAKER) (test ucxy=062) 2.1 mg/dL 1.6-2.6 LACTIC ACID, ARTERIAL, WHOLE [id number] 21:32:00 Test Item Value Reference Range Comments LACTATE BLOOD ARTERIAL (2) (BEAKER) (test 0.6 mmol/L 0.5-2.2 bfxd=5596) Effective 08/06/2015: Units/Reference Range ChangeNew: 0.5-2.2 mmol/L Previous: 5 -20 mg/dLPOCT-GLUCOSE [id number] 21:21:00 Test Item Value Reference Range Comments POC-GLUCOSE METER (BEAKER) 198 mg/dL 70-110 TESTED AT [address] (test ursp=9902) [facility] [address] POCT-GLUCOSE [id number] 21:21:00 Test Item Value Reference Range Comments POC-GLUCOSE METER (BEAKER) 155 mg/dL 70-110 TESTED AT [address] (test rioe=6536) [facility] [address] POCT-GLUCOSE [id number] 21:21:00 Test Item Value Reference Range Comments POC-GLUCOSE METER (BEAKER) 67 mg/dL 70-110 TESTED AT [address] (test fsry=7747) [facility] [address] BLOOD GAS, [id number] 21:16:00 Test Item Value Reference Range Comments PH ARTERIAL (BEAKER) (test okwj=016) 7.34 7.35-7.45 PCO2 ARTERIAL (BEAKER) (test jchn=045) 56 mmHg 35-45 PO2 ARTERIAL (BEAKER) (test kour=567) 107 mmHg 80-90 O2 SATURATION ARTERIAL (BEAKER) (test lhpa=971) 97.3 % 96.0-97.0 HCO3 ARTERIAL (BEAKER) (test hmea=925) 29 mmol/L 21-29 BASE EXCESS ARTERIAL (BEAKER) (test fqxe=290) 2.7 mmol/L -2.0-3.0 PATIENT TEMPERATURE (BEAKER) (test wpix=6969) 37.8 C FIO2 (BEAKER) (test pibm=7284) 100.0 % GLUCOSE-STAT [id number] 21:16:00 Test Item Value Reference Range Comments GLUCOSE RANDOM (BEAKER) (test vtax=045) 188 mg/dL 70-110 HGB/HCT (H&H) - STAT [id number] 21:16:00 Test Item Value Reference Range Comments HEMOGLOBIN (BEAKER) (test asum=945) 9.9 g/dL 12.0-15.0 HEMATOCRIT (BEAKER) (test dwyn=892) 29.0 % 36.0-45.0 SODIUM NA-STAT [id number] 21:15:00 Test Item Value Reference Range Comments SODIUM (BEAKER) (test jfwa=290) 140 meq/L 135-148 POTASSIUM-STAT [id number] 21:15:00 Test Item Value Reference Range Comments POTASSIUM (BEAKER) (test gpvj=775) 3.9 meq/L 3.6-5.5 BLOOD GAS, [id number] 19:44:00 Test Item Value Reference Range Comments PH ARTERIAL (BEAKER) (test xjjo=908) 7.34 7.35-7.45 PCO2 ARTERIAL (BEAKER) (test xuam=196) 31 mmHg 35-45 PO2 ARTERIAL (BEAKER) (test flzq=741) 68 mmHg 80-90 O2 SATURATION ARTERIAL (BEAKER) (test qpdg=986) 92.1 % 96.0-97.0 HCO3 ARTERIAL (BEAKER) (test ulcc=900) 16 mmol/L 21-29 BASE EXCESS ARTERIAL (BEAKER) (test rfqi=613) -8.7 mmol/L -2.0-3.0 PATIENT TEMPERATURE (BEAKER) (test sthp=2421) 37.7 C FIO2 (BEAKER) (test uqxb=6292) 50.0 % POCT-GLUCOSE [id number] 18:30:00 Test Item Value Reference Range Comments POC-GLUCOSE METER (BEAKER) 90 mg/dL 70-110 TESTED AT [address] (test odvm=7059) [facility] [address] TROPONIN [id number] 18:05:00 Test Item Value Reference Range Comments TROPONIN I (BEAKER) (test swbr=284) 76.69 ng/mL 0.00-0.03 Troponin I (TnI) levels [...] acute neurological disease, and persistent tachyarrhythmia.BASIC METABOLIC [id number] 17:56:00 Test Item Value Reference Range Comments SODIUM (BEAKER) (test 143 meq/L 136-145 ulvj=069) POTASSIUM (BEAKER) (test 3.8 meq/L 3.5-5.1 uese=728) CHLORIDE (BEAKER) (test 104 meq/L 98-107 obcf=269) CO2 (BEAKER) (test 29 meq/L 22-29 shjx=539) BLOOD UREA NITROGEN 37 mg/dL 7-21 (BEAKER) (test qqyl=145) CREATININE (BEAKER) (test 2.45 mg/dL 0.57-1.25 hhxi=717) GLUCOSE RANDOM (BEAKER) 107 mg/dL 70-105 (test rlrg=914) CALCIUM (BEAKER) (test 8.6 mg/dL 8.4-10.2 gdkx=913) EGFR (BEAKER) (test 24 mL/min/1.73 sq m ESTIMATED GFR IS NOT mxyq=6037) ACCURATE CREATININE CLEARANCE IN PREDICTING GLOMERULAR FILTRATION RATE. ESTIMATED GFR IS NOT APPLICABLE FOR DIALYSIS PATIENTS. [id number] 17:43:00 Test Item Value Reference Range Comments PHOSPHORUS (BEAKER) (test fyss=609) 4.8 mg/dL 2.3-4.7 [id number] 17:43:00 Test Item Value Reference Range Comments MAGNESIUM (BEAKER) (test clkh=040) 2.4 mg/dL 1.6-2.6 [id number] 17:34:00 Test Item Value Reference Range Comments PARTIAL THROMBOPLASTIN TIME (BEAKER) (test 101.4 seconds 22.5-36.0 gciv=513) BLOOD GAS, [id number] 17:23:00 Test Item Value Reference Range Comments PH ARTERIAL (BEAKER) (test aolf=919) 7.36 7.35-7.45 PCO2 ARTERIAL (BEAKER) (test qoya=918) 60 mmHg 35-45 PO2 ARTERIAL (BEAKER) (test xeof=159) 82 mmHg 80-90 O2 SATURATION ARTERIAL (BEAKER) (test juqj=214) 95.1 % 96.0-97.0 HCO3 ARTERIAL (BEAKER) (test dbtm=050) 33 mmol/L 21-29 BASE EXCESS ARTERIAL (BEAKER) (test frxd=826) 6.0 mmol/L -2.0-3.0 PATIENT TEMPERATURE (BEAKER) (test bepk=4187) 37.4 C FIO2 (BEAKER) (test vvho=1888) 70.0 % GLUCOSE-STAT [id number] 17:20:00 Test Item Value Reference Range Comments GLUCOSE RANDOM (BEAKER) (test buzt=343) 106 mg/dL 70-110 POCT-GLUCOSE [id number] 16:32:00 Test Item Value Reference Range Comments POC-GLUCOSE METER (BEAKER) 115 mg/dL 70-110 TESTED AT [address] (test tcdm=7909) [facility] [address] VANCOMYCIN LEVEL, [id number] 16:10:00 Test Item Value Reference Range Comments VANCOMYCIN TROUGH (BEAKER) (test auyl=641) 17.0 ug/mL 10.0-20.0 POCT-GLUCOSE [id number] 15:32:00 Test Item Value Reference Range Comments POC-GLUCOSE METER (BEAKER) 119 mg/dL 70-110 TESTED AT [address] (test oqel=7541) [place] [id number] TROPONIN [id number] 13:14:00 Test Item Value Reference Range Comments TROPONIN I (BEAKER) (test pawe=653) 81.57 ng/mL 0.00-0.03 Troponin I (TnI) levels [...] acute neurological disease, and persistent tachyarrhythmia.BASIC METABOLIC [id number] 12:49:00 Test Item Value Reference Range Comments SODIUM (BEAKER) (test 140 meq/L 136-145 fisc=912) POTASSIUM (BEAKER) (test 3.6 meq/L 3.5-5.1 Specimen slightly uayv=433) hemolyzed CHLORIDE (BEAKER) (test 104 meq/L 98-107 tfha=639) CO2 (BEAKER) (test 27 meq/L 22-29 vurw=233) BLOOD UREA NITROGEN 37 mg/dL 7-21 (BEAKER) (test mdhe=319) CREATININE (BEAKER) (test 2.35 mg/dL 0.57-1.25 Specimen slightly yjnm=378) hemolyzed GLUCOSE RANDOM (BEAKER) 192 mg/dL 70-105 (test tlpp=997) CALCIUM (BEAKER) (test 8.1 mg/dL 8.4-10.2 vfpy=052) EGFR (BEAKER) (test 25 mL/min/1.73 sq m ESTIMATED GFR IS NOT iybj=2251) ACCURATE CREATININE CLEARANCE IN PREDICTING GLOMERULAR FILTRATION RATE. ESTIMATED GFR IS NOT APPLICABLE FOR DIALYSIS PATIENTS. [id number] 12:46:00 Test Item Value Reference Range Comments MAGNESIUM (BEAKER) (test 2.2 mg/dL 1.6-2.6 Specimen slightly hemolyzed vcnq=015) [id number] 12:46:00 Test Item Value Reference Range Comments PHOSPHORUS (BEAKER) (test 4.6 mg/dL 2.3-4.7 Specimen slightly hemolyzed bagk=395) POCT-GLUCOSE [id number] 12:16:00 Test Item Value Reference Range Comments POC-GLUCOSE METER (BEAKER) 210 mg/dL 70-110 TESTED AT [address] (test ejtv=1628) [place] [id number] POCT-GLUCOSE [id number] 12:16:00 Test Item Value Reference Range Comments POC-GLUCOSE METER (BEAKER) 247 mg/dL 70-110 TESTED AT [address] (test vlrf=7795) [place] [id number] POCT-GLUCOSE [id number] 12:16:00 Test Item Value Reference Range Comments POC-GLUCOSE METER (BEAKER) 174 mg/dL 70-110 TESTED AT [address] (test nbzj=6437) [place] [id number] BLOOD GAS, [id number] 12:14:00 Test Item Value Reference Range Comments PH ARTERIAL (BEAKER) (test zaab=458) 7.36 7.35-7.45 PCO2 ARTERIAL (BEAKER) (test alsn=567) 56 mmHg 35-45 PO2 ARTERIAL (BEAKER) (test zhzm=577) 65 mmHg 80-90 O2 SATURATION ARTERIAL (BEAKER) (test lcqa=294) 90.4 % 96.0-97.0 HCO3 ARTERIAL (BEAKER) (test ihdv=413) 31 mmol/L 21-29 BASE EXCESS ARTERIAL (BEAKER) (test rbll=213) 4.8 mmol/L -2.0-3.0 PATIENT TEMPERATURE (BEAKER) (test czeo=9164) 38.0 C FIO2 (BEAKER) (test mjul=7730) 60.0 % [id number] 10:58:00 Test Item Value Reference Range Comments PARTIAL THROMBOPLASTIN TIME (BEAKER) (test 99.0 seconds 22.5-36.0 kmyl=759) RAD, CHEST, 1 VIEW, NON [id number] 08:30:00Reason for exam:->r/o pleural effusionShould this be [...] No pneumothorax is seen. Signed: [facility] Verified Date/Time: 07/20/2017 08:30:52 Reading Location: [facility] Radiology ReadingRoom BLOOD GAS, [id number] 06 :37:00 Test Item Value Reference Range Comments PH ARTERIAL (BEAKER) (test wogw=932) 7.38 7.35-7.45 PCO2 ARTERIAL (BEAKER) (test ugaf=343) 50 mmHg 35-45 PO2 ARTERIAL (BEAKER) (test qqcc=734) 97 mmHg 80-90 O2 SATURATION ARTERIAL (BEAKER) (test miks=679) 96.9 % 96.0-97.0 HCO3 ARTERIAL (BEAKER) (test vwem=820) 28 mmol/L 21-29 BASE EXCESS ARTERIAL (BEAKER) (test nysg=732) 2.7 mmol/L -2.0-3.0 PATIENT TEMPERATURE (BEAKER) (test jtnh=7228) 37.8 C FIO2 (BEAKER) (test itfe=4509) 40.0 % POCT-GLUCOSE [id number] 06:15:00 Test Item Value Reference Range Comments POC-GLUCOSE METER (BEAKER) 114 mg/dL 70-110 TESTED AT [facility] [address] [place] [address] (test wbzf=0565) [facility] [address] POCT-GLUCOSE [id number] 06:15:00 Test Item Value Reference Range Comments POC-GLUCOSE METER (BEAKER) 140 mg/dL 70-110 TESTED AT [address] (test qtql=1721) [facility] [address] POCT-GLUCOSE [id number] 05:23:00 Test Item Value Reference Range Comments POC-GLUCOSE METER (BEAKER) 77 mg/dL 70-110 TESTED AT [address] (test zboc=8122) [facility] [address] CALCIUM, [id number] 04:34:00 Test Item Value Reference Range Comments CALCIUM IONIZED (BEAKER) (test vcuj=643) 1.14 mmol/L 1.12-1.27 PH, BLOOD (BEAKER) (test gytx=3590) 7.34 BLOOD GAS, [id number] 04:32:00 Test Item Value Reference Range Comments PH ARTERIAL (BEAKER) (test kzor=832) 7.32 7.35-7.45 PCO2 ARTERIAL (BEAKER) (test udrv=002) 60 mmHg 35-45 PO2 ARTERIAL (BEAKER) (test zzow=254) 92 mmHg 80-90 O2 SATURATION ARTERIAL (BEAKER) (test fbgt=283) 95.9 % 96.0-97.0 HCO3 ARTERIAL (BEAKER) (test ujwa=781) 30 mmol/L 21-29 BASE EXCESS ARTERIAL (BEAKER) (test yire=742) 3.2 mmol/L -2.0-3.0 PATIENT TEMPERATURE (BEAKER) (test yftc=8847) 37.8 C FIO2 (BEAKER) (test oiwm=8340) 40.0 % COMPREHENSIVE METABOLIC [id number] 04:24:00 Test Item Value Reference Range Comments TOTAL PROTEIN (BEAKER) 6.5 gm/dL 6.0-8.3 (test lxbc=496) ALBUMIN (BEAKER) (test 3.4 g/dL 3.5-5.0 lkof=3900) ALKALINE PHOSPHATASE 47 U/L 40-150 (BEAKER) (test dvuq=092) BILIRUBIN TOTAL (BEAKER) 0.8 mg/dL 0.2-1.2 (test ctkk=496) SODIUM (BEAKER) (test 142 meq/L 136-145 iwbo=576) POTASSIUM (BEAKER) (test 3.7 meq/L 3.5-5.1 rqzi=641) CHLORIDE (BEAKER) (test 103 meq/L 98-107 bimu=120) CO2 (BEAKER) (test 29 meq/L 22-29 dizg=672) BLOOD UREA NITROGEN 34 mg/dL 7-21 (BEAKER) (test tjsg=135) CREATININE (BEAKER) (test 2.44 mg/dL 0.57-1.25 vdjj=133) GLUCOSE RANDOM (BEAKER) 128 mg/dL 70-105 (test tjuh=193) CALCIUM (BEAKER) (test 8.7 mg/dL 8.4-10.2 dxwe=072) AST (SGOT) (BEAKER) (test 158 U/L 5-34 zhxq=942) ALT (SGPT) (BEAKER) (test 63 U/L 6-55 cbau=674) EGFR (BEAKER) (test 24 mL/min/1.73 sq m ESTIMATED GFR IS NOT svjk=4446) ACCURATE CREATININE CLEARANCE IN PREDICTING GLOMERULAR FILTRATION RATE. ESTIMATED GFR IS NOT APPLICABLE FOR DIALYSIS PATIENTS. BASIC METABOLIC [id number] 04:24:00 Test Item Value Reference Range Comments SODIUM (BEAKER) (test 142 meq/L 136-145 wnkq=906) POTASSIUM (BEAKER) (test 3.7 meq/L 3.5-5.1 laje=977) CHLORIDE (BEAKER) (test 103 meq/L 98-107 efnx=639) CO2 (BEAKER) (test 29 meq/L 22-29 ahhs=794) BLOOD UREA NITROGEN 34 mg/dL 7-21 (BEAKER) (test elyf=026) CREATININE (BEAKER) (test 2.44 mg/dL 0.57-1.25 hhdl=303) GLUCOSE RANDOM (BEAKER) 128 mg/dL 70-105 (test uenm=312) CALCIUM (BEAKER) (test 8.7 mg/dL 8.4-10.2 ksff=705) EGFR (BEAKER) (test 24 mL/min/1.73 sq m ESTIMATED GFR IS NOT yexn=4293) ACCURATE CREATININE CLEARANCE IN PREDICTING GLOMERULAR FILTRATION RATE. ESTIMATED GFR IS NOT APPLICABLE FOR DIALYSIS PATIENTS. [id number] 04:22:00 Test Item Value Reference Range Comments PHOSPHORUS (BEAKER) (test rhck=974) 5.2 mg/dL 2.3-4.7 [id number] 04:22:00 Test Item Value Reference Range Comments MAGNESIUM (BEAKER) (test rxuw=608) 2.4 mg/dL 1.6-2.6 HEPATIC FUNCTION [id number] 04:22:00 Test Item Value Reference Range Comments TOTAL PROTEIN (BEAKER) (test zhzs=356) 6.5 gm/dL 6.0-8.3 ALBUMIN (BEAKER) (test cxsz=6249) 3.4 g/dL 3.5-5.0 BILIRUBIN TOTAL (BEAKER) (test rkff=128) 0.8 mg/dL 0.2-1.2 BILIRUBIN DIRECT (BEAKER) (test yfel=297) 0.4 mg/dL 0.1-0.5 ALKALINE PHOSPHATASE (BEAKER) (test opwu=623) 47 U/L 40-150 AST (SGOT) (BEAKER) (test kytz=283) 158 U/L 5-34 ALT (SGPT) (BEAKER) (test vgbm=138) 63 U/L 6-55 [id number] 04:12:00 Test Item Value Reference Range Comments PARTIAL THROMBOPLASTIN TIME (BEAKER) (test 36.8 seconds 22.5-36.0 ugwm=188) Prior to initiating heparinPOCT-GLUCOSE [id number] 04:05:00 Test Item Value Reference Range Comments POC-GLUCOSE METER (BEAKER) 134 mg/dL 70-110 TESTED AT [address] (test ljox=0063) [facility] [address] POCT-GLUCOSE [id number] 04:05:00 Test Item Value Reference Range Comments POC-GLUCOSE METER (BEAKER) 122 mg/dL 70-110 TESTED AT [address] (test yvby=9380) [facility] [address] POCT-GLUCOSE [id number] 04:05:00 Test Item Value Reference Range Comments POC-GLUCOSE METER (BEAKER) 201 mg/dL 70-110 TESTED AT [address] (test vwxq=6609) [facility] [address] CBC W/PLT COUNT & AUTO [id number] 04:02:00 Test Item Value Reference Range Comments WHITE BLOOD CELL COUNT (BEAKER) (test dkyb=776) 13.6 K/ L 3.5-10.5 RED BLOOD CELL COUNT (BEAKER) (test tfsa=984) 3.18 M/ L 3.93-5.22 HEMOGLOBIN (BEAKER) (test mfai=520) 9.7 GM/DL 11.2-15.7 HEMATOCRIT (BEAKER) (test nbzw=748) 31.0 % 34.1-44.9 MEAN CORPUSCULAR VOLUME (BEAKER) (test fujv=896) 97.5 fL 79.4-94.8 MEAN CORPUSCULAR HEMOGLOBIN (BEAKER) (test 30.5 pg 25.6-32.2 puzl=889) MEAN CORPUSCULAR HEMOGLOBIN CONC (BEAKER) (test 31.3 GM/DL 32.2-35.5 dbnq=423) RED CELL DISTRIBUTION WIDTH (BEAKER) (test 13.3 % 11.7-14.4 jmxu=361) PLATELET COUNT (BEAKER) (test owsk=000) 167 K/CU MM 150-450 MEAN PLATELET VOLUME (BEAKER) (test woyg=300) 11.0 fL 9.4-12.3 NUCLEATED RED BLOOD CELLS (BEAKER) (test 0 /100 WBC 0-0 xrdf=215) NEUTROPHILS RELATIVE PERCENT (BEAKER) (test 85 % gevy=193) LYMPHOCYTES RELATIVE PERCENT (BEAKER) (test 7 % yrhd=931) MONOCYTES RELATIVE PERCENT (BEAKER) (test 7 % qgox=879) EOSINOPHILS RELATIVE PERCENT (BEAKER) (test 0 % icji=658) BASOPHILS RELATIVE PERCENT (BEAKER) (test 0 % unpt=751) NEUTROPHILS ABSOLUTE COUNT (BEAKER) (test 11.61 K/ L 1.56-6.13 ajnm=011) LYMPHOCYTES ABSOLUTE COUNT (BEAKER) (test 0.98 K/ L 1.18-3.74 llra=948) MONOCYTES ABSOLUTE COUNT (BEAKER) (test 0.92 K/ L 0.24-0.36 xske=775) EOSINOPHILS ABSOLUTE COUNT (BEAKER) (test 0.00 K/ L 0.04-0.36 lvyt=957) BASOPHILS ABSOLUTE COUNT (BEAKER) (test 0.02 K/ L 0.01-0.08 olbp=340) IMMATURE GRANULOCYTES-RELATIVE PERCENT (BEAKER) 1 % 0-1 (test lmoo=1218) [id number] 02:01:00 Test Item Value Reference Range Comments PARTIAL THROMBOPLASTIN TIME (BEAKER) (test 32.5 seconds 22.5-36.0 buyy=107) BLOOD GAS, [id number] 01:09:00 Test Item Value Reference Range Comments PH ARTERIAL (BEAKER) (test dvca=624) 7.35 7.35-7.45 PCO2 ARTERIAL (BEAKER) (test pgkv=213) 50 mmHg 35-45 PO2 ARTERIAL (BEAKER) (test uqly=740) 86 mmHg 80-90 O2 SATURATION ARTERIAL (BEAKER) (test bqxl=162) 95.3 % 96.0-97.0 HCO3 ARTERIAL (BEAKER) (test gcjd=330) 27 mmol/L 21-29 BASE EXCESS ARTERIAL (BEAKER) (test txau=058) 1.0 mmol/L -2.0-3.0 PATIENT TEMPERATURE (BEAKER) (test kmzb=0421) 38.2 C FIO2 (BEAKER) (test bczr=9861) 40.0 % POCT-GLUCOSE [id number] 01:04:00 Test Item Value Reference Range Comments POC-GLUCOSE METER (BEAKER) 199 mg/dL 70-110 TESTED AT [facility] [address] [facility] (test qgyc=7449) [facility] [address] [id number] 00:14:00 Test Item Value Reference Range Comments MAGNESIUM (BEAKER) (test 2.3 mg/dL 1.6-2.6 Specimen slightly hemolyzed dnth=952) [id number] 00:14:00 Test Item Value Reference Range Comments POTASSIUM (BEAKER) (test 3.8 meq/L 3.5-5.1 Specimen slightly hemolyzed pyyy=592) CALCIUM, [id number] 00:11:00 Test Item Value Reference Range Comments CALCIUM IONIZED (BEAKER) (test pwrm=870) 1.06 mmol/L 1.12-1.27 PH, BLOOD (BEAKER) (test kjey=8950) 7.35 BLOOD GAS, [id number] 00:11:00 Test Item Value Reference Range Comments PH ARTERIAL (BEAKER) (test ljft=843) 7.33 7.35-7.45 PCO2 ARTERIAL (BEAKER) (test wvov=153) 53 mmHg 35-45 PO2 ARTERIAL (BEAKER) (test ogxr=815) 58 mmHg 80-90 O2 SATURATION ARTERIAL (BEAKER) (test txyk=970) 86.1 % 96.0-97.0 HCO3 ARTERIAL (BEAKER) (test rlaw=168) 27 mmol/L 21-29 BASE EXCESS ARTERIAL (BEAKER) (test sffi=768) 0.9 mmol/L -2.0-3.0 PATIENT TEMPERATURE (BEAKER) (test wlij=8106) 38.0 C FIO2 (BEAKER) (test hmkg=1871) 40.0 % Post extubation ABGPOCT-GLUCOSE [id number] 23:58:00 Test Item Value Reference Range Comments POC-GLUCOSE METER (BEAKER) 202 mg/dL 70-110 TESTED AT [address] (test wyaw=2984) [place] [address] POCT-GLUCOSE [id number] 23:58:00 Test Item Value Reference Range Comments POC-GLUCOSE METER (BEAKER) 86 mg/dL 70-110 TESTED AT [address] (test cfhl=1726) [place] [id number] BASIC METABOLIC [id number] 22:18:00 Test Item Value Reference Range Comments SODIUM (BEAKER) (test 141 meq/L 136-145 zkth=384) POTASSIUM (BEAKER) (test 3.6 meq/L 3.5-5.1 Specimen slightly vjyd=997) hemolyzed CHLORIDE (BEAKER) (test 105 meq/L 98-107 weeg=254) CO2 (BEAKER) (test 26 meq/L 22-29 yzja=151) BLOOD UREA NITROGEN 31 mg/dL 7-21 (BEAKER) (test mbzl=060) CREATININE (BEAKER) (test 2.09 mg/dL 0.57-1.25 Specimen slightly vqai=013) hemolyzed GLUCOSE RANDOM (BEAKER) 81 mg/dL 70-105 (test vyzr=839) CALCIUM (BEAKER) (test 8.3 mg/dL 8.4-10.2 rbhj=531) EGFR (BEAKER) (test 28 mL/min/1.73 sq m ESTIMATED GFR IS NOT tvvw=3811) ACCURATE CREATININE CLEARANCE IN PREDICTING GLOMERULAR FILTRATION RATE. ESTIMATED GFR IS NOT APPLICABLE FOR DIALYSIS PATIENTS. [id number] 22:17:00 Test Item Value Reference Range Comments PHOSPHORUS (BEAKER) (test 5.1 mg/dL 2.3-4.7 Specimen slightly hemolyzed akao=853) POCT-GLUCOSE [id number] 20:57:00 Test Item Value Reference Range Comments POC-GLUCOSE METER (BEAKER) 90 mg/dL 70-110 TESTED AT [facility] [address] [facility] (test frhs=2140) [facility] [address] BLOOD GAS, [id number] 20:52:00 Test Item Value Reference Range Comments PH ARTERIAL (BEAKER) (test emmq=042) 7.35 7.35-7.45 PCO2 ARTERIAL (BEAKER) (test nhtj=249) 49 mmHg 35-45 PO2 ARTERIAL (BEAKER) (test wsaw=138) 100 mmHg 80-90 O2 SATURATION ARTERIAL (BEAKER) (test ezra=206) 97.0 % 96.0-97.0 HCO3 ARTERIAL (BEAKER) (test yvcr=206) 26 mmol/L 21-29 BASE EXCESS ARTERIAL (BEAKER) (test asuy=384) 0.3 mmol/L -2.0-3.0 PATIENT TEMPERATURE (BEAKER) (test kftf=6839) 37.7 C FIO2 (BEAKER) (test bgot=1421) 40.0 % [id number] 18:57:00 Test Item Value Reference Range Comments PARTIAL THROMBOPLASTIN TIME (BEAKER) (test 70.7 seconds 22.5-36.0 nlil=599) BLOOD GAS, [id number] 16:52:00 Test Item Value Reference Range Comments PH ARTERIAL (BEAKER) (test nhcx=495) 7.37 7.35-7.45 PCO2 ARTERIAL (BEAKER) (test dfpy=066) 47 mmHg 35-45 PO2 ARTERIAL (BEAKER) (test idyz=156) 117 mmHg 80-90 O2 SATURATION ARTERIAL (BEAKER) (test onti=796) 98.0 % 96.0-97.0 HCO3 ARTERIAL (BEAKER) (test asua=555) 26 mmol/L 21-29 BASE EXCESS ARTERIAL (BEAKER) (test ktmb=199) 0.5 mmol/L -2.0-3.0 PATIENT TEMPERATURE (BEAKER) (test qyfi=1562) 37.7 C FIO2 (BEAKER) (test lenj=6474) 60.0 % GLUCOSE-STAT [id number] 16:52:00 Test Item Value Reference Range Comments GLUCOSE RANDOM (BEAKER) (test peow=363) 149 mg/dL 70-110 [id number] 16:22:00 Test Item Value Reference Range Comments PARTIAL THROMBOPLASTIN TIME (BEAKER) (test 197.7 seconds 22.5-36.0 sjeo=400) PROTHROMBIN [id number] 16:15:00 Test Item Value Reference Range Comments PROTIME (BEAKER) (test dmkd=365) 16.4 seconds 11.7-14.7 INR (BEAKER) (test docq=051) 1.3 <=5.9 RECOMMENDED COUMADIN/WARFARIN INR THERAPY RANGESSTANDARD DOSE: 2.0 - 3.0 Includes: PROPHYLAXIS forvenous thrombosis, systemic embolization; TREATMENT for venous thrombosis and/or pulmonary embolus.HIGH RISK: Target INR is 2.5-3.5 for patients with mechanical heart valves.[id number] 16:15:00 Test Item Value Reference Range Comments FIBRINOGEN LEVEL (BEAKER) (test mjia=048) 303 mg/dl 225-434 [id number] 16:15:00 Test Item Value Reference Range Comments MAGNESIUM (BEAKER) (test 3.0 mg/dL 1.6-2.6 Specimen moderately hemolyzed uceq=046) [id number] 16:15:00 Test Item Value Reference Range Comments PHOSPHORUS (BEAKER) (test 6.6 mg/dL 2.3-4.7 Specimen moderately hemolyzed nqmm=399) BASIC METABOLIC [id number] 16:15:00 Test Item Value Reference Range Comments SODIUM (BEAKER) (test 144 meq/L 136-145 jwwg=140) POTASSIUM (BEAKER) (test 4.1 meq/L 3.5-5.1 Specimen moderately khho=269) hemolyzed CHLORIDE (BEAKER) (test 106 meq/L 98-107 nesq=480) CO2 (BEAKER) (test 27 meq/L 22-29 kjnn=431) BLOOD UREA NITROGEN 30 mg/dL 7-21 (BEAKER) (test rdyv=114) CREATININE (BEAKER) (test 1.99 mg/dL 0.57-1.25 Specimen moderately mjre=637) hemolyzed GLUCOSE RANDOM (BEAKER) 165 mg/dL 70-105 (test xjpf=962) CALCIUM (BEAKER) (test 8.6 mg/dL 8.4-10.2 kfwk=455) EGFR (BEAKER) (test 30 mL/min/1.73 sq m ESTIMATED GFR IS NOT ijdw=8787) ACCURATE CREATININE CLEARANCE IN PREDICTING GLOMERULAR FILTRATION RATE. ESTIMATED GFR IS NOT APPLICABLE FOR DIALYSIS PATIENTS. CBC (HEMOGRAM ONLY)[id number] 16:13:00 Test Item Value Reference Range Comments WHITE BLOOD CELL COUNT (BEAKER) (test ldoi=585) 14.5 K/ L 3.5-10.5 RED BLOOD CELL COUNT (BEAKER) (test ybap=977) 3.55 M/ L 3.93-5.22 HEMOGLOBIN (BEAKER) (test jaxi=431) 10.7 GM/DL 11.2-15.7 HEMATOCRIT (BEAKER) (test qype=633) 34.9 % 34.1-44.9 MEAN CORPUSCULAR VOLUME (BEAKER) (test hpgq=662) 98.3 fL 79.4-94.8 MEAN CORPUSCULAR HEMOGLOBIN (BEAKER) (test 30.1 pg 25.6-32.2 njie=902) MEAN CORPUSCULAR HEMOGLOBIN CONC (BEAKER) (test 30.7 GM/DL 32.2-35.5 ksgj=556) RED CELL DISTRIBUTION WIDTH (BEAKER) (test 13.3 % 11.7-14.4 ahzi=958) PLATELET COUNT (BEAKER) (test lhte=372) 235 K/CU MM 150-450 MEAN PLATELET VOLUME (BEAKER) (test juwa=025) 11.0 fL 9.4-12.3 NUCLEATED RED BLOOD CELLS (BEAKER) (test 0 /100 WBC 0-0 ikgh=231) LACTIC ACID, ARTERIAL, WHOLE [id number] 16:12:00 Test Item Value Reference Range Comments LACTATE BLOOD ARTERIAL (2) 2.0 mmol/L 0.5-2.2 Specimen slightly hemolyzed (BEAKER) (test zakd=0632) Effective 08/06/2015: Units/Reference Range ChangeNew: 0.5-2.2 mmol/L Previous: 5 -20 mg/dLCALCIUM, [id number] 15:54:00 Test Item Value Reference Range Comments CALCIUM IONIZED (BEAKER) (test slhj=475) 1.14 mmol/L 1.12-1.27 PH, BLOOD (BEAKER) (test idva=7444) 7.24 SODIUM NA-STAT [id number] 15:54:00 Test Item Value Reference Range Comments SODIUM (BEAKER) (test xahk=815) 143 meq/L 135-148 POTASSIUM-STAT [id number] 15:54:00 Test Item Value Reference Range Comments POTASSIUM (BEAKER) (test wejm=735) 3.9 meq/L 3.6-5.5 BLOOD GAS, [id number] 15:54:00 Test Item Value Reference Range Comments PH ARTERIAL (BEAKER) (test uehw=274) 7.26 7.35-7.45 PCO2 ARTERIAL (BEAKER) (test ycrs=071) 69 mmHg 35-45 PO2 ARTERIAL (BEAKER) (test scji=982) 74 mmHg 80-90 O2 SATURATION ARTERIAL (BEAKER) (test sszc=548) 93.4 % 96.0-97.0 HCO3 ARTERIAL (BEAKER) (test veya=566) 31 mmol/L 21-29 BASE EXCESS ARTERIAL (BEAKER) (test pkhy=303) 2.0 mmol/L -2.0-3.0 PATIENT TEMPERATURE (BEAKER) (test ehin=2452) 35.6 C FIO2 (BEAKER) (test aznn=8103) 50.0 % GLUCOSE-STAT [id number] 15:54:00 Test Item Value Reference Range Comments GLUCOSE RANDOM (BEAKER) (test xczg=978) 169 mg/dL 70-110 HGB/HCT (H&H) - STAT [id number] 15:54:00 Test Item Value Reference Range Comments HEMOGLOBIN (BEAKER) (test qhws=641) 11.7 g/dL 12.0-15.0 HEMATOCRIT (BEAKER) (test brxw=389) 34.0 % 36.0-45.0 RAD, CHEST, 1 VIEW, NON [id number] 15:49:00Reason for exam:->sp PCI/ intubatedFINAL REPORT TECHNIQUE: [...] MDReport Verified Date/Time: 07/19/2017 15:49:37 Reading Location: [facility] RadiologyReading Room [id number] 14:13:00 Test Item Value Reference Range Comments ACTIVATED CLOTTING TIME 131 sec TESTED AT [address] ([facility]) (test lmyx=501) [place] [id number] TROPONIN [id number] 12:32:00 Test Item Value Reference Range Comments TROPONIN I (BEAKER) (test wtle=440) 119.79 ng/mL 0.00-0.03 Troponin I (TnI) levels [...] and persistent tachyarrhythmia.CREATINE KINASE (CK), TOTAL AND [id number] 12:26:00 Test Item Value Reference Range Comments CREATINE KINASE TOTAL (BEAKER) (test vxek=235) 2405 U/L 29-200 CREATINE KINASE-MB (BEAKER) (test hjkk=973) 65.6 ng/mL 0.0-6.6 CREATINE KINASE-MB INDEX (BEAKER) (test abpq=451) 2.7 % CK-MB Reference Range:<6.7 Normal6.7-10.0 Borderline>10.0 AbnormalPOCT-GLUCOSE [id number] 12:20:00 Test Item Value Reference Range Comments POC-GLUCOSE METER ([facility]) 183 mg/dL 70-110 TESTED AT [address] (test pwko=2645) [facility] [address] [id number] 12:03:00 Test Item Value Reference Range Comments MAGNESIUM (BEAKER) (test nqca=702) 2.8 mg/dL 1.6-2.6 [id number] 12:03:00 Test Item Value Reference Range Comments PHOSPHORUS (BEAKER) (test oili=737) 5.3 mg/dL 2.3-4.7 BASIC METABOLIC [id number] 12:03:00 Test Item Value Reference Range Comments SODIUM (BEAKER) (test 143 meq/L 136-145 agys=418) POTASSIUM (BEAKER) (test 3.8 meq/L 3.5-5.1 gcgu=630) CHLORIDE (BEAKER) (test 106 meq/L 98-107 cjkd=296) CO2 (BEAKER) (test 27 meq/L 22-29 yjne=316) BLOOD UREA NITROGEN 29 mg/dL 7-21 (BEAKER) (test zmhg=734) CREATININE (BEAKER) (test 1.92 mg/dL 0.57-1.25 wvvy=930) GLUCOSE RANDOM (BEAKER) 188 mg/dL 70-105 (test denb=403) CALCIUM (BEAKER) (test 8.7 mg/dL 8.4-10.2 pbov=559) EGFR (BEAKER) (test 31 mL/min/1.73 sq m ESTIMATED GFR IS NOT sufh=6837) ACCURATE CREATININE CLEARANCE IN PREDICTING GLOMERULAR FILTRATION RATE. ESTIMATED GFR IS NOT APPLICABLE FOR DIALYSIS PATIENTS. POCT-GLUCOSE [id number] 11:19:00 Test Item Value Reference Range Comments POC-GLUCOSE METER (BEAKER) 190 mg/dL 70-110 TESTED AT [address] (test blxq=4525) [facility] [address] POCT-GLUCOSE [id number] 10:12:00 Test Item Value Reference Range Comments POC-GLUCOSE METER (BEAKER) 197 mg/dL 70-110 TESTED AT [address] (test xwee=8882) [facility] [address] POCT-GLUCOSE [id number] 09:21:00 Test Item Value Reference Range Comments POC-GLUCOSE METER (BEAKER) 221 mg/dL 70-110 TESTED AT [address] (test fmko=1283) [facility] [address] LACTIC ACID, ARTERIAL, WHOLE [id number] 09:19:00 Test Item Value Reference Range Comments LACTATE BLOOD ARTERIAL (2) (BEAKER) (test 2.4 mmol/L 0.5-2.2 twwh=6193) Effective 08/06/2015: Units/Reference Range ChangeNew: 0.5-2.2 mmol/L Previous: 5 -20 mg/dLPROTHROMBIN [id number] 08:44:00 Test Item Value Reference Range Comments PROTIME (BEAKER) (test vyik=202) 14.4 seconds 11.7-14.7 INR (BEAKER) (test tgqc=979) 1.1 <=5.9 RECOMMENDED COUMADIN/WARFARIN INR THERAPY RANGESSTANDARD DOSE: 2.0 - 3.0 Includes: PROPHYLAXIS forvenous thrombosis, systemic embolization; TREATMENT for venous thrombosis and/or pulmonary embolus.HIGH RISK: Target INR is 2.5-3.5 for patients with mechanical heart valves.[id number] 08:44:00 Test Item Value Reference Range Comments FIBRINOGEN LEVEL (BEAKER) (test sfsm=024) 367 mg/dl 225-434 [id number] 08:44:00 Test Item Value Reference Range Comments PARTIAL THROMBOPLASTIN TIME (BEAKER) (test 30.0 seconds 22.5-36.0 omqk=335) POCT-GLUCOSE [id number] 07:52:00 Test Item Value Reference Range Comments POC-GLUCOSE METER (BEAKER) 215 mg/dL 70-110 TESTED AT [facility] [address] [facility] (test ogqj=8514) [facility] [address] [address], CHEST, WITHOUT [id number] 07:50:00KEEP PATIENT ON CT TABLE. CALL RADIOLOGIST [...] Verified Date /Time: 07/19/2017 07:50:43 Reading Location: [facility] Diagnostic Imaging Reading Room - [place] [id number] Electronically signed by: YLNNETTE CASTRO MD on 07:50 AMPOCT-GLUCOSE [id number] 07:37:00 Test Item Value Reference Range Comments POC-GLUCOSE METER (BEAKER) 225 mg/dL 70-110 TESTED AT [address] (test tucx=3146) [facility] [address] RAD, CHEST, 1 VIEW, NON [id number] 04:04:00Reason for exam:->v tach/ iabpShould this be [...] MDReport Verified Date/Time: 07/19/2017 04:04:19 Reading Location: [address] Ortho Consult Reading Room [id number] 03:59:00 Test Item Value Reference Range Comments PHOSPHORUS (BEAKER) (test mzzj=838) 4.4 mg/dL 2.3-4.7 [id number] 03:59:00 Test Item Value Reference Range Comments MAGNESIUM (BEAKER) (test ijvs=422) 2.5 mg/dL 1.6-2.6 BASIC METABOLIC [id number] 03:59:00 Test Item Value Reference Range Comments SODIUM (BEAKER) (test 145 meq/L 136-145 voap=295) POTASSIUM (BEAKER) (test 3.6 meq/L 3.5-5.1 bpoa=880) CHLORIDE (BEAKER) (test 106 meq/L 98-107 hple=492) CO2 (BEAKER) (test 25 meq/L 22-29 ltwg=378) BLOOD UREA NITROGEN 28 mg/dL 7-21 (BEAKER) (test denr=564) CREATININE (BEAKER) (test 1.93 mg/dL 0.57-1.25 xlvx=103) GLUCOSE RANDOM (BEAKER) 216 mg/dL 70-105 (test rmmc=782) CALCIUM (BEAKER) (test 9.0 mg/dL 8.4-10.2 ylbw=899) EGFR (BEAKER) (test 31 mL/min/1.73 sq m ESTIMATED GFR IS NOT wjdz=8576) ACCURATE CREATININE CLEARANCE IN PREDICTING GLOMERULAR FILTRATION RATE. ESTIMATED GFR IS NOT APPLICABLE FOR DIALYSIS PATIENTS. B-TYPE NATRIURETIC FACTOR (BNP)2017-07-19 03:10:00 Test Item Value Reference Range Comments B-TYPE NATRIURETIC PEPTIDE (BEAKER) (test 2662 pg/mL 0-100 flgt=696) HEPATIC FUNCTION [id number] 03:04:00 Test Item Value Reference Range Comments TOTAL PROTEIN (BEAKER) (test ofnn=944) 6.6 gm/dL 6.0-8.3 ALBUMIN (BEAKER) (test bmmu=1326) 3.5 g/dL 3.5-5.0 BILIRUBIN TOTAL (BEAKER) (test wynd=922) 0.4 mg/dL 0.2-1.2 BILIRUBIN DIRECT (BEAKER) (test ddch=290) 0.2 mg/dL 0.1-0.5 ALKALINE PHOSPHATASE (BEAKER) (test ivwo=835) 57 U/L 40-150 AST (SGOT) (BEAKER) (test hnjt=051) 359 U/L 5-34 ALT (SGPT) (BEAKER) (test tgff=691) 99 U/L 6-55 CREATINE KINASE (CK)2017-07-19 03:04:00 Test Item Value Reference Range Comments CREATINE KINASE TOTAL (BEAKER) (test mlqy=646) 2888 U/L 29-200 CBC W/PLT COUNT & AUTO [id number] 02:56:00 Test Item Value Reference Range Comments WHITE BLOOD CELL COUNT (BEAKER) (test bhqj=926) 19.0 K/ L 3.5-10.5 RED BLOOD CELL COUNT (BEAKER) (test jelr=635) 3.69 M/ L 3.93-5.22 HEMOGLOBIN (BEAKER) (test gnzf=353) 11.2 GM/DL 11.2-15.7 HEMATOCRIT (BEAKER) (test mmuo=257) 35.3 % 34.1-44.9 MEAN CORPUSCULAR VOLUME (BEAKER) (test iztj=664) 95.7 fL 79.4-94.8 MEAN CORPUSCULAR HEMOGLOBIN (BEAKER) (test 30.4 pg 25.6-32.2 fqeq=433) MEAN CORPUSCULAR HEMOGLOBIN CONC (BEAKER) (test 31.7 GM/DL 32.2-35.5 yvfu=168) RED CELL DISTRIBUTION WIDTH (BEAKER) (test 13.1 % 11.7-14.4 omdt=487) PLATELET COUNT (BEAKER) (test xasz=248) 253 K/CU MM 150-450 MEAN PLATELET VOLUME (BEAKER) (test bbmp=577) 10.0 fL 9.4-12.3 NUCLEATED RED BLOOD CELLS (BEAKER) (test 0 /100 WBC 0-0 uxvf=247) NEUTROPHILS RELATIVE PERCENT (BEAKER) (test 86 % ttwl=946) LYMPHOCYTES RELATIVE PERCENT (BEAKER) (test 6 % pyoo=862) MONOCYTES RELATIVE PERCENT (BEAKER) (test 7 % qnmp=924) EOSINOPHILS RELATIVE PERCENT (BEAKER) (test 0 % lifx=411) BASOPHILS RELATIVE PERCENT (BEAKER) (test 0 % pqxs=616) NEUTROPHILS ABSOLUTE COUNT (BEAKER) (test 16.34 K/ L 1.56-6.13 arwl=843) LYMPHOCYTES ABSOLUTE COUNT (BEAKER) (test 1.15 K/ L 1.18-3.74 qsrk=111) MONOCYTES ABSOLUTE COUNT (BEAKER) (test 1.39 K/ L 0.24-0.36 ebes=933) EOSINOPHILS ABSOLUTE COUNT (BEAKER) (test 0.00 K/ L 0.04-0.36 lwwb=698) BASOPHILS ABSOLUTE COUNT (BEAKER) (test 0.02 K/ L 0.01-0.08 bzxc=951) IMMATURE GRANULOCYTES-RELATIVE PERCENT (BEAKER) 0 % 0-1 (test eijc=5773) CALCIUM, [id number] 02:49:00 Test Item Value Reference Range Comments CALCIUM IONIZED (BEAKER) (test kjup=599) 1.14 mmol/L 1.12-1.27 PH, BLOOD (BEAKER) (test ngre=8168) 7.36 CBC (HEMOGRAM ONLY)2017-07-19 02:48:00 Test Item Value Reference Range Comments WHITE BLOOD CELL COUNT (BEAKER) (test ozcq=922) 19.0 K/ L 3.5-10.5 RED BLOOD CELL COUNT (BEAKER) (test loqx=389) 3.69 M/ L 3.93-5.22 HEMOGLOBIN (BEAKER) (test jynz=022) 11.2 GM/DL 11.2-15.7 HEMATOCRIT (BEAKER) (test nusw=458) 35.3 % 34.1-44.9 MEAN CORPUSCULAR VOLUME (BEAKER) (test cwyl=300) 95.7 fL 79.4-94.8 MEAN CORPUSCULAR HEMOGLOBIN (BEAKER) (test 30.4 pg 25.6-32.2 qvyn=279) MEAN CORPUSCULAR HEMOGLOBIN CONC (BEAKER) (test 31.7 GM/DL 32.2-35.5 dvbg=996) RED CELL DISTRIBUTION WIDTH (BEAKER) (test 13.1 % 11.7-14.4 spiw=834) PLATELET COUNT (BEAKER) (test wekr=544) 253 K/CU MM 150-450 MEAN PLATELET VOLUME (BEAKER) (test lqgb=793) 10.0 fL 9.4-12.3 NUCLEATED RED BLOOD CELLS (BEAKER) (test 0 /100 WBC 0-0 lbvb=123) BLOOD GAS, [id number] 02:48:00 Test Item Value Reference Range Comments PH ARTERIAL (BEAKER) (test wkjo=928) 7.35 7.35-7.45 PCO2 ARTERIAL (BEAKER) (test tfbi=783) 55 mmHg 35-45 PO2 ARTERIAL (BEAKER) (test erew=936) 73 mmHg 80-90 O2 SATURATION ARTERIAL (BEAKER) (test qehi=780) 93.3 % 96.0-97.0 HCO3 ARTERIAL (BEAKER) (test gpyn=105) 30 mmol/L 21-29 BASE EXCESS ARTERIAL (BEAKER) (test deoi=689) 3.1 mmol/L -2.0-3.0 PATIENT TEMPERATURE (BEAKER) (test vyyc=2297) 37.5 C FIO2 (BEAKER) (test mqsa=2519) 40.0 % POCT-GLUCOSE [id number] 02:21:00 Test Item Value Reference Range Comments POC-GLUCOSE METER (BEAKER) 184 mg/dL 70-110 TESTED AT [address] (test tfjf=3247) [facility] [address] POCT-GLUCOSE [id number] 01:15:00 Test Item Value Reference Range Comments POC-GLUCOSE METER (BEAKER) 173 mg/dL 70-110 TESTED AT [address] (test qskd=8453) [facility] [address] [id number] 00:55:00 Test Item Value Reference Range Comments PHOSPHORUS (BEAKER) (test pcin=991) 3.3 mg/dL 2.3-4.7 [id number] 00:55:00 Test Item Value Reference Range Comments MAGNESIUM (BEAKER) (test ihzh=490) 1.8 mg/dL 1.6-2.6 BASIC METABOLIC [id number] 00:55:00 Test Item Value Reference Range Comments SODIUM (BEAKER) (test 143 meq/L 136-145 gjpi=580) POTASSIUM (BEAKER) (test 3.9 meq/L 3.5-5.1 jene=775) CHLORIDE (BEAKER) (test 106 meq/L 98-107 daho=278) CO2 (BEAKER) (test 27 meq/L 22-29 yndd=222) BLOOD UREA NITROGEN 27 mg/dL 7-21 (BEAKER) (test tngx=127) CREATININE (BEAKER) (test 1.90 mg/dL 0.57-1.25 jbhw=782) GLUCOSE RANDOM (BEAKER) 181 mg/dL 70-105 (test ljbd=964) CALCIUM (BEAKER) (test 8.9 mg/dL 8.4-10.2 gexv=705) EGFR (BEAKER) (test 32 mL/min/1.73 sq m ESTIMATED GFR IS NOT ukdm=9196) ACCURATE CREATININE CLEARANCE IN PREDICTING GLOMERULAR FILTRATION RATE. ESTIMATED GFR IS NOT APPLICABLE FOR DIALYSIS PATIENTS. POCT-GLUCOSE [id number] 00:11:00 Test Item Value Reference Range Comments POC-GLUCOSE METER (BEAKER) 177 mg/dL 70-110 TESTED AT [address] (test ruur=2372) [place] [id number] POCT-GLUCOSE [id number] 23:25:00 Test Item Value Reference Range Comments POC-GLUCOSE METER (BEAKER) 206 mg/dL 70-110 TESTED AT [address] (test uwjy=2962) [place] [id number] POCT-GLUCOSE [id number] 22:19:00 Test Item Value Reference Range Comments POC-GLUCOSE METER (BEAKER) 243 mg/dL 70-110 TESTED AT [address] (test wiyf=1541) [facility] [address] POCT-GLUCOSE [id number] 21:37:00 Test Item Value Reference Range Comments POC-GLUCOSE METER (BEAKER) 235 mg/dL 70-110 TESTED AT [address] (test xpvg=1919) [place] [address] POCT-GLUCOSE [id number] 20:04:00 Test Item Value Reference Range Comments POC-GLUCOSE METER (BEAKER) 216 mg/dL 70-110 TESTED AT [address] (test fjzy=1624) [facility] [address] POCT-GLUCOSE [id number] 18:40:00 Test Item Value Reference Range Comments POC-GLUCOSE METER (BEAKER) 271 mg/dL 70-110 TESTED AT [facility] [address] (test ovts=5023) [facility] [address] [id number] 18:32:00 Test Item Value Reference Range Comments MAGNESIUM (BEAKER) (test 1.9 mg/dL 1.6-2.6 Specimen slightly hemolyzed irvr=130) [id number] 18:32:00 Test Item Value Reference Range Comments PHOSPHORUS (BEAKER) (test 3.1 mg/dL 2.3-4.7 Specimen slightly hemolyzed iaoj=467) BASIC METABOLIC [id number] 18:32:00 Test Item Value Reference Range Comments SODIUM (BEAKER) (test 142 meq/L 136-145 dubi=227) POTASSIUM (BEAKER) (test 3.9 meq/L 3.5-5.1 Specimen slightly zeja=472) hemolyzed CHLORIDE (BEAKER) (test 107 meq/L 98-107 suti=604) CO2 (BEAKER) (test 24 meq/L 22-29 yyej=115) BLOOD UREA NITROGEN 22 mg/dL 7-21 (BEAKER) (test japl=294) CREATININE (BEAKER) (test 1.55 mg/dL 0.57-1.25 Specimen slightly sdnu=383) hemolyzed GLUCOSE RANDOM (BEAKER) 242 mg/dL 70-105 (test iqun=808) CALCIUM (BEAKER) (test 8.8 mg/dL 8.4-10.2 anmb=876) EGFR (BEAKER) (test 40 mL/min/1.73 sq m ESTIMATED GFR IS NOT tbzs=7712) ACCURATE CREATININE CLEARANCE IN PREDICTING GLOMERULAR FILTRATION RATE. ESTIMATED GFR IS NOT APPLICABLE FOR DIALYSIS PATIENTS. BLOOD GAS, [id number] 18:24:00 Test Item Value Reference Range Comments PH ARTERIAL (BEAKER) (test sbak=384) 7.34 7.35-7.45 PCO2 ARTERIAL (BEAKER) (test vbcp=564) 51 mmHg 35-45 PO2 ARTERIAL (BEAKER) (test ezmo=939) 57 mmHg 80-90 O2 SATURATION ARTERIAL (BEAKER) (test qenu=574) 87.5 % 96.0-97.0 HCO3 ARTERIAL (BEAKER) (test frjb=248) 27 mmol/L 21-29 BASE EXCESS ARTERIAL (BEAKER) (test xrmg=978) 1.0 mmol/L -2.0-3.0 PATIENT TEMPERATURE (BEAKER) (test rdux=0168) 37.2 C FIO2 (BEAKER) (test auly=9736) 40.0 % POCT-GLUCOSE [id number] 17:14:00 Test Item Value Reference Range Comments POC-GLUCOSE METER (BEAKER) 299 mg/dL 70-110 TESTED AT [facility] [address] (test zjhc=1270) [facility] [address] LACTIC ACID, ARTERIAL, WHOLE [id number] 16:37:00 Test Item Value Reference Range Comments LACTATE BLOOD ARTERIAL (2) 2.9 mmol/L 0.5-2.2 Specimen slightly hemolyzed (BEAKER) (test qwcb=7002) Effective 08/06/2015: Units/Reference Range ChangeNew: 0.5-2.2 mmol/L Previous: 5 -20 mg/[id number] 15:45:00 Test Item Value Reference Range Comments GLUCOSE RANDOM (BEAKER) (test uccd=224) 439 mg/dL 70-105 If last glucose was less than 500, may do bedside glucose instead of serum glucose.POCT-GLUCOSE [id number] 15:21:00 Test Item Value Reference Range Comments POC-GLUCOSE METER (BEAKER) 374 mg/dL 70-110 Notified PAULA BERGER/TESTED AT [facility] (test evhs=4234) [address] [facility] [address] [id number] 15:14:00 Test Item Value Reference Range Comments POTASSIUM (BEAKER) (test poff=726) 4.0 meq/L 3.5-5.1 If last glucose was less than 500, may do bedside glucose instead of serum glucose.URINALYSIS W/ [id number] 15:03:00 Test Item Value Reference Range Comments COLOR (BEAKER) (test sbkd=285) Yellow CLARITY (BEAKER) (test efwy=643) Clear SPECIFIC GRAVITY UA (BEAKER) (test ppln=261) 1.050 1.001-1.035 PH UA (BEAKER) (test vfit=090) 5.5 5.0-8.0 PROTEIN UA (BEAKER) (test mlrh=194) 50 mg/dL Negative GLUCOSE UA (BEAKER) (test odmg=522) >1000 mg/dL Negative KETONES UA (BEAKER) (test qznj=107) Negative Negative BILIRUBIN UA (BEAKER) (test high=926) Negative Negative BLOOD UA (BEAKER) (test pcgl=787) Moderate Negative NITRITE UA (BEAKER) (test zqra=104) Negative Negative LEUKOCYTE ESTERASE UA (BEAKER) (test idun=224) Negative Negative UROBILINOGEN UA (BEAKER) (test daeo=107) 0.2 mg/dL 0.2-1.0 RBC UA (BEAKER) (test eder=968) 16 /HPF WBC UA (BEAKER) (test iakr=825) 11 /HPF BACTERIA (BEAKER) (test oocq=460) Rare MUCUS (BEAKER) (test lgif=0221) Rare SQUAMOUS EPITHELIAL (BEAKER) (test rfnh=726) 1 /HPF SOURCE(BEAKER) (test kxzo=8180) U/S, RENAL, [id number] 14:36:00Reason for exam:->acute renal failure , hydronephrosisShould [...] Diaz Verified Date/Time: 07/18/2017 14:36:40 Reading Location: [address] Ultrasound Reading Room Electronically signed by: VIRGINIA DIAZ M.D. on 02:36 PMT4, [id number] 14:31:00 Test Item Value Reference Range Comments FREE T4 (BEAKER) (test pjml=040) 1.13 ng/dL 0.70-1.48 BLOOD GAS, [id number] 14:01:00 Test Item Value Reference Range Comments PH ARTERIAL (BEAKER) (test ehdr=965) 7.42 7.35-7.45 PCO2 ARTERIAL (BEAKER) (test teuz=230) 42 mmHg 35-45 PO2 ARTERIAL (BEAKER) (test qpvq=588) 66 mmHg 80-90 O2 SATURATION ARTERIAL (BEAKER) (test chdy=447) 93.5 % 96.0-97.0 HCO3 ARTERIAL (BEAKER) (test kjrq=489) 27 mmol/L 21-29 BASE EXCESS ARTERIAL (BEAKER) (test glbc=521) 2.1 mmol/L -2.0-3.0 PATIENT TEMPERATURE (BEAKER) (test copr=0488) 36.9 C FIO2 (BEAKER) (test nhbx=5142) 40.0 % HEMOGLOBIN [id number] 13:57:00 Test Item Value Reference Range Comments HEMOGLOBIN A1C (BEAKER) (test wodl=618) 9.8 % 4.3-6.1 SODIUM, RANDOM [id number] 13:49:00 Test Item Value Reference Range Comments SODIUM URINE (BEAKER) (test uuqi=545) 22 meq/L Reference Range: No NormalsTSH/FREE T4 IF [id number] 13:49:00 Test Item Value Reference Range Comments THYROID STIMULATING HORMONE (BEAKER) (test 0.27 uIU/mL 0.35-4.94 mhcp=200) POCT-GLUCOSE [id number] 13:47:00 Test Item Value Reference Range Comments POC-GLUCOSE METER (BEAKER) 398 mg/dL 70-110 TESTED AT [facility] [address] [facility] (test qeoy=6539) [facility] [address] CREATININE, RANDOM [id number] 13:43:00 Test Item Value Reference Range Comments CREATININE URINE (BEAKER) (test iuhk=216) 85.4 mg/dL Reference Range: No NormalsPROTEIN, RANDOM [id number] 13:43:00 Test Item Value Reference Range Comments PROTEIN, URINE (BEAKER) (test kjiq=1228) 75 mg/dL 0-14 B-TYPE NATRIURETIC FACTOR (BNP)2017-07-18 13:17:00 Test Item Value Reference Range Comments B-TYPE NATRIURETIC PEPTIDE (BEAKER) (test 1847 pg/mL 0-100 mfny=707) BASIC METABOLIC [id number] 13:13:00 Test Item Value Reference Range Comments SODIUM (BEAKER) (test 138 meq/L 136-145 gbfg=618) POTASSIUM (BEAKER) (test 4.8 meq/L 3.5-5.1 ryge=743) CHLORIDE (BEAKER) (test 101 meq/L 98-107 spxj=215) CO2 (BEAKER) (test 26 meq/L 22-29 yobl=859) BLOOD UREA NITROGEN 21 mg/dL 7-21 (BEAKER) (test wdvu=694) CREATININE (BEAKER) (test 1.62 mg/dL 0.57-1.25 jroe=803) GLUCOSE RANDOM (BEAKER) 527 mg/dL 70-105 (test nreg=887) CALCIUM (BEAKER) (test 8.9 mg/dL 8.4-10.2 sxie=191) EGFR (BEAKER) (test 38 mL/min/1.73 sq m ESTIMATED GFR IS NOT jago=9900) ACCURATE CREATININE CLEARANCE IN PREDICTING GLOMERULAR FILTRATION RATE. ESTIMATED GFR IS NOT APPLICABLE FOR DIALYSIS PATIENTS. If last glucose was less than 500, may do bedside glucose instead of serum glucose.[id number] 13:12:00 Test Item Value Reference Range Comments MAGNESIUM (BEAKER) (test ifjo=522) 1.9 mg/dL 1.6-2.6 If last glucose was less than 500, may do bedside glucose instead of serum glucose.[id number] 13:12:00 Test Item Value Reference Range Comments LIPASE (BEAKER) (test rnbt=498) 106 U/L 8-78 If last glucose was less than 500, may do bedside glucose instead of serum glucose.[id number] 13:11:00 Test Item Value Reference Range Comments PHOSPHORUS (BEAKER) (test wnuf=909) 3.3 mg/dL 2.3-4.7 If last glucose was less than 500, may do bedside glucose instead of serum glucose.POCT-GLUCOSE [id number] 12:49:00 Test Item Value Reference Range Comments POC-GLUCOSE METER (BEAKER) 498 mg/dL 70-110 Notified PAULA BERGER/TESTED AT [facility] (test uqgu=6391) [address] [place] [address] LACTIC ACID, VENOUS, WHOLE [id number] 12:11:00 Test Item Value Reference Range Comments LACTATE BLOOD VENOUS (2) (BEAKER) (test 3.8 mmol/L 0.5-2.2 rbqs=5216) Effective 08/06/2015: Units/Reference Range ChangeNew: 0.5-2.2 mmol/L Previous: 5 -20 mg/[id number] 12:10:00 Test Item Value Reference Range Comments PROCALCITONIN (BEAKER) (test ejds=8136) 3.80 ng/mL <0.05 SEPSIS RISK (ng/mL)Low: 0.05-0.50Intermediate: 0.51-2.00High: & gt;=2.01CBC W/PLT COUNT & AUTO [id number] 12:10:00 Test Item Value Reference Range Comments WHITE BLOOD CELL COUNT (BEAKER) (test vfzi=866) 11.2 K/ L 3.5-10.5 RED BLOOD CELL COUNT (BEAKER) (test nsjg=729) 3.98 M/ L 3.93-5.22 HEMOGLOBIN (BEAKER) (test pgtq=491) 12.0 GM/DL 11.2-15.7 HEMATOCRIT (BEAKER) (test nbwo=660) 38.5 % 34.1-44.9 MEAN CORPUSCULAR VOLUME (BEAKER) (test dwhg=255) 96.7 fL 79.4-94.8 MEAN CORPUSCULAR HEMOGLOBIN (BEAKER) (test 30.2 pg 25.6-32.2 qbda=508) MEAN CORPUSCULAR HEMOGLOBIN CONC (BEAKER) (test 31.2 GM/DL 32.2-35.5 kscr=960) RED CELL DISTRIBUTION WIDTH (BEAKER) (test 13.1 % 11.7-14.4 ceep=513) PLATELET COUNT (BEAKER) (test whdm=048) 222 K/CU MM 150-450 MEAN PLATELET VOLUME (BEAKER) (test ozsf=956) 10.2 fL 9.4-12.3 NUCLEATED RED BLOOD CELLS (BEAKER) (test 0 /100 WBC 0-0 koah=792) NEUTROPHILS RELATIVE PERCENT (BEAKER) (test 96 % mssq=427) LYMPHOCYTES RELATIVE PERCENT (BEAKER) (test 2 % ftcm=831) MONOCYTES RELATIVE PERCENT (BEAKER) (test 2 % bhxn=045) EOSINOPHILS RELATIVE PERCENT (BEAKER) (test 0 % wesj=647) BASOPHILS RELATIVE PERCENT (BEAKER) (test 0 % obfb=288) NEUTROPHILS ABSOLUTE COUNT (BEAKER) (test 10.72 K/ L 1.56-6.13 zgwi=714) LYMPHOCYTES ABSOLUTE COUNT (BEAKER) (test 0.24 K/ L 1.18-3.74 ppqa=711) MONOCYTES ABSOLUTE COUNT (BEAKER) (test 0.22 K/ L 0.24-0.36 rwzg=439) EOSINOPHILS ABSOLUTE COUNT (BEAKER) (test 0.00 K/ L 0.04-0.36 wjvw=450) BASOPHILS ABSOLUTE COUNT (BEAKER) (test 0.01 K/ L 0.01-0.08 ophx=897) IMMATURE GRANULOCYTES-RELATIVE PERCENT (BEAKER) 0 % 0-1 (test pvtk=2799) BASIC METABOLIC [id number] 11:35:00 Test Item Value Reference Range Comments SODIUM (BEAKER) (test 136 meq/L 136-145 ozck=969) POTASSIUM (BEAKER) (test 4.8 meq/L 3.5-5.1 cagz=748) CHLORIDE (BEAKER) (test 99 meq/L 98-107 wumg=496) CO2 (BEAKER) (test 25 meq/L 22-29 dkul=531) BLOOD UREA NITROGEN 19 mg/dL 7-21 (BEAKER) (test knja=090) CREATININE (BEAKER) (test 1.61 mg/dL 0.57-1.25 mxvl=182) GLUCOSE RANDOM (BEAKER) 568 mg/dL 70-105 (test lzfr=779) CALCIUM (BEAKER) (test 8.9 mg/dL 8.4-10.2 eacf=118) EGFR (BEAKER) (test 38 mL/min/1.73 sq m ESTIMATED GFR IS NOT ccbn=3778) ACCURATE CREATININE CLEARANCE IN PREDICTING GLOMERULAR FILTRATION RATE. ESTIMATED GFR IS NOT APPLICABLE FOR DIALYSIS PATIENTS. BLOOD GAS, [id number] 10:57:00 Test Item Value Reference Range Comments PH ARTERIAL (BEAKER) (test hzkq=813) 7.36 7.35-7.45 PCO2 ARTERIAL (BEAKER) (test uyss=416) 47 mmHg 35-45 PO2 ARTERIAL (BEAKER) (test kphd=742) 78 mmHg 80-90 O2 SATURATION ARTERIAL (BEAKER) (test qkcg=050) 95.0 % 96.0-97.0 HCO3 ARTERIAL (BEAKER) (test rked=198) 26 mmol/L 21-29 BASE EXCESS ARTERIAL (BEAKER) (test bsfa=794) 0.4 mmol/L -2.0-3.0 PATIENT TEMPERATURE (BEAKER) (test wdjl=6437) 37.0 C FIO2 (BEAKER) (test nejx=0354) 100.0 % RAD, CHEST, 1 VIEW, NON [id number] 10:38:00Reason for exam:->IABP Should this be performed [...] MDReport Verified Date/Time: 07/18/2017 10:38:31 Reading Location: [facility] Radiology Reading Room CBC W/PLT COUNT & AUTO [id number] 10: 01:00 Test Item Value Reference Range Comments WHITE BLOOD CELL COUNT (BEAKER) (test melh=024) 12.8 K/ L 3.5-10.5 RED BLOOD CELL COUNT (BEAKER) (test mvfd=227) 3.95 M/ L 3.93-5.22 HEMOGLOBIN (BEAKER) (test lqma=931) 11.9 GM/DL 11.2-15.7 HEMATOCRIT (BEAKER) (test gyqi=195) 38.3 % 34.1-44.9 MEAN CORPUSCULAR VOLUME (BEAKER) (test umws=268) 97.0 fL 79.4-94.8 MEAN CORPUSCULAR HEMOGLOBIN (BEAKER) (test 30.1 pg 25.6-32.2 bcwq=833) MEAN CORPUSCULAR HEMOGLOBIN CONC (BEAKER) (test 31.1 GM/DL 32.2-35.5 vzlf=745) RED CELL DISTRIBUTION WIDTH (BEAKER) (test 13.1 % 11.7-14.4 ttro=157) PLATELET COUNT (BEAKER) (test iajd=003) 231 K/CU MM 150-450 MEAN PLATELET VOLUME (BEAKER) (test ymzn=774) 10.4 fL 9.4-12.3 NUCLEATED RED BLOOD CELLS (BEAKER) (test 0 /100 WBC 0-0 avuo=064) NEUTROPHILS RELATIVE PERCENT (BEAKER) (test 91 % ncqg=556) LYMPHOCYTES RELATIVE PERCENT (BEAKER) (test 4 % rcyz=578) MONOCYTES RELATIVE PERCENT (BEAKER) (test 4 % sdfp=368) EOSINOPHILS RELATIVE PERCENT (BEAKER) (test 0 % egdd=903) BASOPHILS RELATIVE PERCENT (BEAKER) (test 0 % iwtm=057) NEUTROPHILS ABSOLUTE COUNT (BEAKER) (test 11.66 K/ L 1.56-6.13 qqkg=455) LYMPHOCYTES ABSOLUTE COUNT (BEAKER) (test 0.53 K/ L 1.18-3.74 ydpk=139) MONOCYTES ABSOLUTE COUNT (BEAKER) (test 0.49 K/ L 0.24-0.36 bldj=343) EOSINOPHILS ABSOLUTE COUNT (BEAKER) (test 0.01 K/ L 0.04-0.36 canx=377) BASOPHILS ABSOLUTE COUNT (BEAKER) (test 0.03 K/ L 0.01-0.08 yrad=332) IMMATURE GRANULOCYTES-RELATIVE PERCENT (BEAKER) 0 % 0-1 (test gkuc=3633) COMPREHENSIVE METABOLIC [id number] 09:38:00 Test Item Value Reference Range Comments TOTAL PROTEIN (BEAKER) 6.7 gm/dL 6.0-8.3 Specimen slightly (test vrcu=452) hemolyzed ALBUMIN (BEAKER) (test 3.5 g/dL 3.5-5.0 Specimen slightly ztel=4841) hemolyzed ALKALINE PHOSPHATASE 70 U/L 40-150 (BEAKER) (test mrhu=228) BILIRUBIN TOTAL (BEAKER) 0.6 mg/dL 0.2-1.2 Specimen slightly (test lyfk=016) hemolyzed SODIUM (BEAKER) (test 134 meq/L 136-145 hyju=866) POTASSIUM (BEAKER) (test 4.7 meq/L 3.5-5.1 Specimen slightly uxeg=750) hemolyzed CHLORIDE (BEAKER) (test 98 meq/L 98-107 qmqy=239) CO2 (BEAKER) (test 25 meq/L 22-29 onxf=553) BLOOD UREA NITROGEN 19 mg/dL 7-21 (BEAKER) (test sklb=643) CREATININE (BEAKER) (test 1.57 mg/dL 0.57-1.25 Specimen slightly jvfc=589) hemolyzed GLUCOSE RANDOM (BEAKER) 652 mg/dL 70-105 (test swdp=552) CALCIUM (BEAKER) (test 8.7 mg/dL 8.4-10.2 jjkp=216) AST (SGOT) (BEAKER) (test 343 U/L 5-34 Specimen slightly ssrm=841) hemolyzed ALT (SGPT) (BEAKER) (test 89 U/L 6-55 Specimen slightly zhvu=971) hemolyzed EGFR (BEAKER) (test 39 mL/min/1.73 sq m ESTIMATED GFR IS NOT sxmg=2563) ACCURATE CREATININE CLEARANCE IN PREDICTING GLOMERULAR FILTRATION RATE. ESTIMATED GFR IS NOT APPLICABLE FOR DIALYSIS PATIENTS. [id number] 09:09:00 Test Item Value Reference Range Comments ACTIVATED CLOTTING TIME 252 sec TESTED AT [facility] [address] (BEAKER) (test mpgy=880) [facility] [address] PROTHROMBIN [id number] 09:01:00 Test Item Value Reference Range Comments PROTIME (BEAKER) (test ecyu=947) 18.3 seconds 11.7-14.7 INR (BEAKER) (test kwgq=248) 1.5 <=5.9 RECOMMENDED COUMADIN/WARFARIN INR THERAPY RANGESSTANDARD DOSE: 2.0 - 3.0 Includes: PROPHYLAXIS forvenous thrombosis, systemic embolization; TREATMENT for venous thrombosis and/or pulmonary embolus.HIGH RISK: Target INR is 2.5-3.5 for patients with mechanical heart valves.[id number] 08:09:00 Test Item Value Reference Range Comments ACTIVATED CLOTTING TIME 213 sec TESTED AT [place] [address] [address] (BEAKER) (test xraa=738) [place] [id number] 08:09:00 Test Item Value Reference Range Comments ACTIVATED CLOTTING TIME 263 sec TESTED AT [place] [address] [address] (BEAKER) (test acui=182) [place] [id number] BLOOD GAS, [id number] 07:50:00 Test Item Value Reference Range Comments PH ARTERIAL (BEAKER) (test ijfg=412) 7.20 7.35-7.45 PCO2 ARTERIAL (BEAKER) (test fvyo=181) 65 mmHg 35-45 PO2 ARTERIAL (BEAKER) (test pxcw=266) 133 mmHg 80-90 O2 SATURATION ARTERIAL (BEAKER) (test prbv=931) 98.1 % 96.0-97.0 HCO3 ARTERIAL (BEAKER) (test siuh=454) 25 mmol/L 21-29 BASE EXCESS ARTERIAL (BEAKER) (test qhpt=442) -4.3 mmol/L -2.0-3.0 PATIENT TEMPERATURE (BEAKER) (test yxzr=2658) 36.0 C FIO2 (BEAKER) (test mzjg=6492) 100.0 % POCT-GLUCOSE [id number] 12:27:00 Test Item Value Reference Range Comments POC-GLUCOSE METER (BEAKER) 156 mg/dL 70-110 TESTED AT [address] (test hrso=7416) [place] [address] BASIC METABOLIC [id number] 05:45:00 Test Item Value Reference Range Comments SODIUM (BEAKER) (test 141 meq/L 136-145 xxko=096) POTASSIUM (BEAKER) (test 4.1 meq/L 3.5-5.1 pmru=215) CHLORIDE (BEAKER) (test 106 meq/L 98-107 xmsx=354) CO2 (BEAKER) (test 26 meq/L 22-29 usph=444) BLOOD UREA NITROGEN 11 mg/dL 7-21 (BEAKER) (test dgxu=050) CREATININE (BEAKER) (test 0.83 mg/dL 0.57-1.25 dcgt=325) GLUCOSE RANDOM (BEAKER) 139 mg/dL 70-105 (test lmno=622) CALCIUM (BEAKER) (test 8.5 mg/dL 8.4-10.2 eoho=719) EGFR (BEAKER) (test 83 mL/min/1.73 sq m ESTIMATED GFR IS NOT woub=6417) ACCURATE CREATININE CLEARANCE IN PREDICTING GLOMERULAR FILTRATION RATE. ESTIMATED GFR IS NOT APPLICABLE FOR DIALYSIS PATIENTS. POCT-GLUCOSE [id number] 21:10:00 Test Item Value Reference Range Comments POC-GLUCOSE METER (BEAKER) 103 mg/dL 70-110 TESTED AT [address] (test qvbz=8635) [place] [address] POCT-GLUCOSE [id number] 17:51:00 Test Item Value Reference Range Comments POC-GLUCOSE METER (BEAKER) 138 mg/dL 70-110 TESTED AT [address] (test mqsp=2780) [place] [address] POCT-GLUCOSE [id number] 12:45:00 Test Item Value Reference Range Comments POC-GLUCOSE METER (BEAKER) 294 mg/dL 70-110 TESTED AT [address] (test nnkd=5545) [place] [address] CBC WITH PLATELET COUNT + MANUAL [id number] 07:04:00 Test Item Value Reference Range Comments WHITE BLOOD CELL COUNT (BEAKER) (test npfs=844) 10.7 K/ L 4.0-10.0 RED BLOOD CELL COUNT (BEAKER) (test utcm=742) 3.91 M/ L 4.00-5.00 HEMOGLOBIN (BEAKER) (test ounb=535) 12.9 GM/DL 12.0-15.0 HEMATOCRIT (BEAKER) (test ikie=389) 39.0 % 36.0-45.0 MEAN CORPUSCULAR VOLUME (BEAKER) (test pzxd=841) 99.6 fL 82.0-99.0 MEAN CORPUSCULAR HEMOGLOBIN (BEAKER) (test 32.9 pg 27.0-33.0 ogyp=869) MEAN CORPUSCULAR HEMOGLOBIN CONC (BEAKER) (test 33.0 GM/DL 32.0-36.0 zyln=245) RED CELL DISTRIBUTION WIDTH (BEAKER) (test 12.8 % 10.3-14.2 ddly=950) PLATELET COUNT (BEAKER) (test haen=130) 251 K/CU MM 150-430 MEAN PLATELET VOLUME (BEAKER) (test apju=687) 8.1 fL 6.5-10.5 NUCLEATED RED BLOOD CELLS (BEAKER) (test 0 /100 WBC 0-0 paag=270) NEUTROPHILS RELATIVE PERCENT (BEAKER) (test 80 % ptrv=773) LYMPHOCYTES RELATIVE PERCENT (BEAKER) (test 14 % svbt=432) MONOCYTES RELATIVE PERCENT (BEAKER) (test 6 % bezh=897) EOSINOPHILS RELATIVE PERCENT (BEAKER) (test 0 % fjoh=214) BASOPHILS RELATIVE PERCENT (BEAKER) (test 0 % hffc=310) NEUTROPHILS ABSOLUTE COUNT (BEAKER) (test 8.55 K/ L 1.80-8.00 muxa=972) LYMPHOCYTES ABSOLUTE COUNT (BEAKER) (test 1.46 K/ L 1.48-4.50 feab=027) MONOCYTES ABSOLUTE COUNT (BEAKER) (test 0.60 K/ L 0.00-1.30 xump=685) EOSINOPHILS ABSOLUTE COUNT (BEAKER) (test 0.05 K/ L 0.00-0.50 uezk=261) BASOPHILS ABSOLUTE COUNT (BEAKER) (test 0.02 K/ L 0.00-0.20 qnjh=522) 0.00(MANUAL DIFFERENTIAL)2016-06-14 07:04:00 Test Item Value Reference Range Comments TOTAL COUNTED (BEAKER) (test dqkj=5072) PLT MORPHOLOGY (BEAKER) (test rtss=591) Normal RBC MORPHOLOGY (BEAKER) (test whjd=205) Normal ATYPICAL LYMPHS(BEAKER) (test xtei=2302) Present BASIC METABOLIC [id number] 05:05:00 Test Item Value Reference Range Comments SODIUM (BEAKER) (test 140 meq/L 136-145 efhu=321) POTASSIUM (BEAKER) (test 3.8 meq/L 3.5-5.1 aceh=042) CHLORIDE (BEAKER) (test 107 meq/L 98-107 amrx=349) CO2 (BEAKER) (test 26 meq/L 22-29 faqp=955) BLOOD UREA NITROGEN 13 mg/dL 7-21 (BEAKER) (test azuf=250) CREATININE (BEAKER) (test 0.80 mg/dL 0.57-1.25 mrvb=582) GLUCOSE RANDOM (BEAKER) 177 mg/dL 70-105 (test pbox=505) CALCIUM (BEAKER) (test 8.3 mg/dL 8.4-10.2 fkyx=568) EGFR (BEAKER) (test 86 mL/min/1.73 sq m ESTIMATED GFR IS NOT hfab=5822) ACCURATE CREATININE CLEARANCE IN PREDICTING GLOMERULAR FILTRATION RATE. ESTIMATED GFR IS NOT APPLICABLE FOR DIALYSIS PATIENTS. [id number] 04:48:00 Test Item Value Reference Range Comments PROTIME (BEAKER) (test lqne=119) 13.0 seconds 11.7-14.7 INR (BEAKER) (test gltf=890) 1.0 <=5.9 PARTIAL THROMBOPLASTIN TIME (BEAKER) (test 31.8 seconds 22.5-36.0 johb=574) RECOMMENDED COUMADIN/WARFARIN INR THERAPY RANGESSTANDARD DOSE: 2.0 - 3.0 Includes: PROPHYLAXIS forvenous thrombosis, systemic embolization; TREATMENT for venous thrombosis and/or pulmonary embolus.HIGH RISK: Target INR is 2.5-3.5 for patients with mechanical heart valves.POCT-GLUCOSE [id number] 22:11:00 Test Item Value Reference Range Comments POC-GLUCOSE METER (BEAKER) 200 mg/dL 70-110 TESTED AT [address] (test mslm=0472) [place] [address] POCT-GLUCOSE [id number] 17:13:00 Test Item Value Reference Range Comments POC-GLUCOSE METER (BEAKER) 225 mg/dL 70-110 TESTED AT [address] (test exvt=5923) [place] [address] POCT-GLUCOSE [id number] 12:22:00 Test Item Value Reference Range Comments POC-GLUCOSE METER (BEAKER) 309 mg/dL 70-110 Notified PAULA BERGER/TESTED AT [facility] (test ffrq=5254) [address] [place] [address] URINALYSIS W/ [id number] 12:09:00 Test Item Value Reference Range Comments COLOR (BEAKER) (test dfpa=537) Yellow CLARITY (BEAKER) (test oeqe=990) Clear SPECIFIC GRAVITY UA (BEAKER) (test lgkv=326) 1.035 1.001-1.035 PH UA (BEAKER) (test qpef=175) 5.0 5.0-8.0 PROTEIN UA (BEAKER) (test hrvi=000) Negative Negative GLUCOSE UA (BEAKER) (test kfsx=527) 150 mg/dL Negative KETONES UA (BEAKER) (test fmop=227) Negative Negative BILIRUBIN UA (BEAKER) (test djbu=384) Negative Negative BLOOD UA (BEAKER) (test wvxw=856) Small Negative NITRITE UA (BEAKER) (test uajs=992) Negative Negative LEUKOCYTE ESTERASE UA (BEAKER) (test olbz=717) Negative Negative UROBILINOGEN UA (BEAKER) (test eahn=298) 0.2 mg/dL 0.2-1.0 RBC UA (BEAKER) (test qlbb=199) 6 /HPF WBC UA (BEAKER) (test bbmk=630) 1 /HPF MUCUS (BEAKER) (test gaks=2841) Rare SQUAMOUS EPITHELIAL (BEAKER) (test hlbz=101) 6 /HPF HYALINE CASTS (BEAKER) (test zxhc=925) 2 /LPF SOURCE(BEAKER) (test lumc=3476) POCT-GLUCOSE [id number] 07:58:00 Test Item Value Reference Range Comments POC-GLUCOSE METER (BEAKER) 236 mg/dL 70-110 TESTED AT [address] (test abbw=9069) [facility] [id number] BASIC METABOLIC [id number] 04:10:00 Test Item Value Reference Range Comments SODIUM (BEAKER) (test 138 meq/L 136-145 orkf=008) POTASSIUM (BEAKER) (test 4.2 meq/L 3.5-5.1 zhme=706) CHLORIDE (BEAKER) (test 107 meq/L 98-107 xogd=987) CO2 (BEAKER) (test 22 meq/L 22-29 zgqu=120) BLOOD UREA NITROGEN 20 mg/dL 7-21 (BEAKER) (test jasu=960) CREATININE (BEAKER) (test 1.00 mg/dL 0.57-1.25 vzah=858) GLUCOSE RANDOM (BEAKER) 246 mg/dL 70-105 (test fvte=161) CALCIUM (BEAKER) (test 8.8 mg/dL 8.4-10.2 nubp=355) EGFR (BEAKER) (test 67 mL/min/1.73 sq m ESTIMATED GFR IS NOT lzwc=4262) ACCURATE CREATININE CLEARANCE IN PREDICTING GLOMERULAR FILTRATION RATE. ESTIMATED GFR IS NOT APPLICABLE FOR DIALYSIS PATIENTS. [id number] 04:03:00 Test Item Value Reference Range Comments PROTIME (BEAKER) (test ctru=841) 12.8 seconds 11.7-14.7 INR (BEAKER) (test rrky=721) 1.0 <=5.9 PARTIAL THROMBOPLASTIN TIME (BEAKER) (test 29.6 seconds 22.5-36.0 orxv=559) RECOMMENDED COUMADIN/WARFARIN INR THERAPY RANGESSTANDARD DOSE: 2.0 - 3.0 Includes: PROPHYLAXIS forvenous thrombosis, systemic embolization; TREATMENT for venous thrombosis and/or pulmonary embolus.HIGH RISK: Target INR is 2.5-3.5 for patients with mechanical heart valves.CBC WITH PLATELET COUNT + MANUAL [id number] 03:58:00 Test Item Value Reference Range Comments WHITE BLOOD CELL COUNT (BEAKER) (test xint=171) 14.3 K/ L 4.0-10.0 RED BLOOD CELL COUNT (BEAKER) (test usus=772) 4.03 M/ L 4.00-5.00 HEMOGLOBIN (BEAKER) (test jrcl=778) 13.1 GM/DL 12.0-15.0 HEMATOCRIT (BEAKER) (test bklc=385) 39.7 % 36.0-45.0 MEAN CORPUSCULAR VOLUME (BEAKER) (test ltub=728) 98.5 fL 82.0-99.0 MEAN CORPUSCULAR HEMOGLOBIN (BEAKER) (test 32.6 pg 27.0-33.0 hgvu=026) MEAN CORPUSCULAR HEMOGLOBIN CONC (BEAKER) (test 33.1 GM/DL 32.0-36.0 hesg=435) RED CELL DISTRIBUTION WIDTH (BEAKER) (test 12.9 % 10.3-14.2 ktnq=168) PLATELET COUNT (BEAKER) (test unzd=434) 271 K/CU MM 150-430 MEAN PLATELET VOLUME (BEAKER) (test zuja=429) 7.7 fL 6.5-10.5 NUCLEATED RED BLOOD CELLS (BEAKER) (test 0 /100 WBC 0-0 xpty=022) NEUTROPHILS RELATIVE PERCENT (BEAKER) (test 87 % rvzp=101) LYMPHOCYTES RELATIVE PERCENT (BEAKER) (test 7 % mhsn=229) MONOCYTES RELATIVE PERCENT (BEAKER) (test 6 % hypc=589) EOSINOPHILS RELATIVE PERCENT (BEAKER) (test 0 % rbyc=596) BASOPHILS RELATIVE PERCENT (BEAKER) (test 0 % ufvj=668) NEUTROPHILS ABSOLUTE COUNT (BEAKER) (test 12.40 K/ L 1.80-8.00 dyey=343) LYMPHOCYTES ABSOLUTE COUNT (BEAKER) (test 1.06 K/ L 1.48-4.50 dezv=438) MONOCYTES ABSOLUTE COUNT (BEAKER) (test 0.81 K/ L 0.00-1.30 qouh=694) EOSINOPHILS ABSOLUTE COUNT (BEAKER) (test 0.01 K/ L 0.00-0.50 gglb=858) BASOPHILS ABSOLUTE COUNT (BEAKER) (test 0.03 K/ L 0.00-0.20 eslf=017) [id number]-GLUCOSE [id number] 22:17:00 Test Item Value Reference Range Comments POC-GLUCOSE METER (BEAKER) 260 mg/dL 70-110 TESTED AT [address] (test pcvz=5176) [place] [id number] POCT-GLUCOSE [id number] 12:11:00 Test Item Value Reference Range Comments POC-GLUCOSE METER (BEAKER) 278 mg/dL 70-110 TESTED AT [address] (test dpap=9904) [place] [id number] HEMOGLOBIN [id number] 10:46:00 Test Item Value Reference Range Comments HEMOGLOBIN A1C (BEAKER) (test koha=186) 9.7 % 4.3-6.1 DC\S\Delta Check\S\NONEPOCT-GLUCOSE [id number] 07:15:00 Test Item Value Reference Range Comments POC-GLUCOSE METER (BEAKER) 283 mg/dL 70-110 TESTED AT [address] (test gjqn=6197) [place] [id number] BASIC METABOLIC [id number] 04:43:00 Test Item Value Reference Range Comments SODIUM (BEAKER) (test 136 meq/L 136-145 jgfj=480) POTASSIUM (BEAKER) (test 4.0 meq/L 3.5-5.1 yshi=125) CHLORIDE (BEAKER) (test 102 meq/L 98-107 wgmi=078) CO2 (BEAKER) (test 27 meq/L 22-29 qajp=430) BLOOD UREA NITROGEN 18 mg/dL 7-21 (BEAKER) (test cmwk=611) CREATININE (BEAKER) (test 0.95 mg/dL 0.57-1.25 vuch=402) GLUCOSE RANDOM (BEAKER) 256 mg/dL 70-105 (test uima=162) CALCIUM (BEAKER) (test 9.0 mg/dL 8.4-10.2 neas=576) EGFR (BEAKER) (test 71 mL/min/1.73 sq m ESTIMATED GFR IS NOT oxkl=5852) ACCURATE CREATININE CLEARANCE IN PREDICTING GLOMERULAR FILTRATION RATE. ESTIMATED GFR IS NOT APPLICABLE FOR DIALYSIS PATIENTS. CBC WITH PLATELET COUNT + MANUAL [id number] 04:28:00 Test Item Value Reference Range Comments WHITE BLOOD CELL COUNT (BEAKER) (test rlab=315) 11.6 K/ L 4.0-10.0 RED BLOOD CELL COUNT (BEAKER) (test eeyp=546) 4.15 M/ L 4.00-5.00 HEMOGLOBIN (BEAKER) (test rdrs=035) 13.3 GM/DL 12.0-15.0 HEMATOCRIT (BEAKER) (test gbms=512) 40.5 % 36.0-45.0 MEAN CORPUSCULAR VOLUME (BEAKER) (test xebm=268) 97.6 fL 82.0-99.0 MEAN CORPUSCULAR HEMOGLOBIN (BEAKER) (test 32.1 pg 27.0-33.0 wvgn=490) MEAN CORPUSCULAR HEMOGLOBIN CONC (BEAKER) (test 32.9 GM/DL 32.0-36.0 fzqh=218) RED CELL DISTRIBUTION WIDTH (BEAKER) (test 12.7 % 10.3-14.2 arbf=216) PLATELET COUNT (BEAKER) (test tpfp=077) 263 K/CU MM 150-430 MEAN PLATELET VOLUME (BEAKER) (test rrki=544) 8.2 fL 6.5-10.5 NUCLEATED RED BLOOD CELLS (BEAKER) (test 0 /100 WBC 0-0 fqjq=608) NEUTROPHILS RELATIVE PERCENT (BEAKER) (test 90 % trla=277) LYMPHOCYTES RELATIVE PERCENT (BEAKER) (test 8 % ddpr=175) MONOCYTES RELATIVE PERCENT (BEAKER) (test 2 % xdcm=935) EOSINOPHILS RELATIVE PERCENT (BEAKER) (test 0 % kkuu=871) BASOPHILS RELATIVE PERCENT (BEAKER) (test 0 % wshn=830) NEUTROPHILS ABSOLUTE COUNT (BEAKER) (test 10.40 K/ L 1.80-8.00 mlal=608) LYMPHOCYTES ABSOLUTE COUNT (BEAKER) (test 0.95 K/ L 1.48-4.50 jqxf=688) MONOCYTES ABSOLUTE COUNT (BEAKER) (test 0.20 K/ L 0.00-1.30 guaf=193) EOSINOPHILS ABSOLUTE COUNT (BEAKER) (test 0.02 K/ L 0.00-0.50 vlmi=086) BASOPHILS ABSOLUTE COUNT (BEAKER) (test 0.02 K/ L 0.00-0.20 ptsn=385) 0.00PT/[id number] 04:25:00 Test Item Value Reference Range Comments PROTIME (BEAKER) (test qulp=572) 13.7 seconds 11.7-14.7 INR (BEAKER) (test pyhz=001) 1.1 <=5.9 PARTIAL THROMBOPLASTIN TIME (BEAKER) (test 32.8 seconds 22.5-36.0 ewyh=748) RECOMMENDED COUMADIN/WARFARIN INR THERAPY RANGESSTANDARD DOSE: 2.0 - 3.0 Includes: PROPHYLAXIS forvenous thrombosis, systemic embolization; TREATMENT for venous thrombosis and/or pulmonary embolus.HIGH RISK: Target INR is 2.5-3.5 for patients with mechanical heart valves.POCT-GLUCOSE [id number] 02:47:00 Test Item Value Reference Range Comments POC-GLUCOSE METER (BEAKER) 278 mg/dL 70-110 TESTED AT [address] (test gvei=8911) [facility] [address] POCT-GLUCOSE [id number] 22:12:00 Test Item Value Reference Range Comments POC-GLUCOSE METER (BEAKER) 258 mg/dL 70-110 TESTED AT [address] (test jphd=4029) [facility] [address] [id number] 15:44:00 Test Item Value Reference Range Comments MAGNESIUM (BEAKER) (test 2.1 mg/dL 1.6-2.6 Specimen slightly hemolyzed xbfu=112) [id number] 15:44:00 Test Item Value Reference Range Comments PHOSPHORUS (BEAKER) (test 2.9 mg/dL 2.3-4.7 Specimen slightly hemolyzed pfde=813) BASIC METABOLIC [id number] 15:44:00 Test Item Value Reference Range Comments SODIUM (BEAKER) (test 137 meq/L 136-145 sgft=535) POTASSIUM (BEAKER) (test 4.4 meq/L 3.5-5.1 Specimen slightly ptux=112) hemolyzed CHLORIDE (BEAKER) (test 99 meq/L 98-107 jybw=618) CO2 (BEAKER) (test 27 meq/L 22-29 bpei=117) BLOOD UREA NITROGEN 13 mg/dL 7-21 (BEAKER) (test phck=304) CREATININE (BEAKER) (test 0.96 mg/dL 0.57-1.25 Specimen slightly xkpp=094) hemolyzed GLUCOSE RANDOM (BEAKER) 250 mg/dL 70-105 (test yeof=586) CALCIUM (BEAKER) (test 9.6 mg/dL 8.4-10.2 xjnd=425) EGFR (BEAKER) (test 70 mL/min/1.73 sq m ESTIMATED GFR IS NOT vqyb=8398) ACCURATE CREATININE CLEARANCE IN PREDICTING GLOMERULAR FILTRATION RATE. ESTIMATED GFR IS NOT APPLICABLE FOR DIALYSIS PATIENTS. CBC WITH PLATELET COUNT + MANUAL [id number] 15:39:00 Test Item Value Reference Range Comments WHITE BLOOD CELL COUNT (BEAKER) (test sggx=824) 9.5 K/ L 4.0-10.0 RED BLOOD CELL COUNT (BEAKER) (test hchu=012) 4.18 M/ L 4.00-5.00 HEMOGLOBIN (BEAKER) (test bsgf=061) 14.0 GM/DL 12.0-15.0 HEMATOCRIT (BEAKER) (test csrg=289) 40.7 % 36.0-45.0 MEAN CORPUSCULAR VOLUME (BEAKER) (test irwv=608) 97.3 fL 82.0-99.0 MEAN CORPUSCULAR HEMOGLOBIN (BEAKER) (test 33.4 pg 27.0-33.0 qzaj=752) MEAN CORPUSCULAR HEMOGLOBIN CONC (BEAKER) (test 34.3 GM/DL 32.0-36.0 weyq=068) RED CELL DISTRIBUTION WIDTH (BEAKER) (test 12.6 % 10.3-14.2 drkq=737) PLATELET COUNT (BEAKER) (test ahxb=284) 253 K/CU MM 150-430 MEAN PLATELET VOLUME (BEAKER) (test oyxx=710) 8.1 fL 6.5-10.5 NUCLEATED RED BLOOD CELLS (BEAKER) (test 0 /100 WBC 0-0 zsqc=888) NEUTROPHILS RELATIVE PERCENT (BEAKER) (test 91 % zvyc=002) LYMPHOCYTES RELATIVE PERCENT (BEAKER) (test 8 % alsm=926) MONOCYTES RELATIVE PERCENT (BEAKER) (test 1 % urov=573) EOSINOPHILS RELATIVE PERCENT (BEAKER) (test 0 % tzdu=412) BASOPHILS RELATIVE PERCENT (BEAKER) (test 0 % cpap=909) NEUTROPHILS ABSOLUTE COUNT (BEAKER) (test 8.66 K/ L 1.80-8.00 tvsr=384) LYMPHOCYTES ABSOLUTE COUNT (BEAKER) (test 0.78 K/ L 1.48-4.50 cprd=443) MONOCYTES ABSOLUTE COUNT (BEAKER) (test 0.07 K/ L 0.00-1.30 wegu=031) EOSINOPHILS ABSOLUTE COUNT (BEAKER) (test 0.01 K/ L 0.00-0.50 umdp=074) BASOPHILS ABSOLUTE COUNT (BEAKER) (test 0.01 K/ L 0.00-0.20 eskl=209) [id number] 15:39:00 Test Item Value Reference Range Comments PROTIME (BEAKER) (test gjxs=872) 12.7 seconds 11.7-14.7 INR (BEAKER) (test rnrq=323) 1.0 <=5.9 PARTIAL THROMBOPLASTIN TIME (BEAKER) (test 32.8 seconds 22.5-36.0 fxbm=548) RECOMMENDED COUMADIN/WARFARIN INR THERAPY RANGESSTANDARD DOSE: 2.0 - 3.0 Includes: PROPHYLAXIS forvenous thrombosis, systemic embolization; TREATMENT for venous thrombosis and/or pulmonary embolus.HIGH RISK: Target INR is 2.5-3.5 for patients with mechanical heart valves.
[2019-05-06 17:34] LABS: Absolute Lymphocytes (CBC) 0.1 K/uL (0.7-4.9); Lymphocytes % 2.8 % (15.3-44.8)
[2019-05-06 17:40] LABS: Protime INR 1.44
[2019-05-06 17:56] LABS: Urine Blood 2+ (NEG); Urine Glucose TRACE (NEG); Urine Protein NEGATIVE (NEG); Urine Specific Gravity 1.025 (1.005-1.030)
[2019-05-06 17:57] LABS: Basophils % 0.1 % (0-1.3); Hematocrit 32.6 % (36.0-45.0); MPV 10.2 fL (7.6-11.3); RBC Red Blood Cell Count 3.32 M/uL (3.86-4.86)
[2019-05-06 18:00] LABS: ALT/SGPT 52 U/L (12-78); AST/SGOT 67 U/L (15-37); Albumin 2.4 g/dL (3.4-5.0); Alkaline Phosphatase 172 U/L (45-117); Amylase Level 48 U/L (25-115); BUN Blood Urea Nitrogen 101 mg/dL (7-18); Bicarbonate 25 mmol/L (21-32); Bilirubin Direct 0.5 mg/dL (0-0.2); Bilirubin Total 0.8 mg/dL (0.2-1.0); CKMB Creatine Kinase MB 4.5 ng/mL (0.3-3.6); Creatine Phosphokinase 69 U/L (26-192); Glucose Level 157 mg/dL (74-106); Lipase 68 U/L (73-393); Potassium 4.9 mmol/L (3.5-5.1); Protein, Total 6.3 g/dL (6.4-8.2); Sodium Level 148 mmol/L (136-145); Troponin (Emerg Dept Use Only) < 0.02 ng/mL (0.0-0.045)
[2019-05-06 18:05] LABS: Urine Bacteria 20-50 /HPF (<20); Urine RBC <5 /HPF (NONE SEEN)
[2019-05-06 18:06] LABS: Urine Culture Reflex Order NOT NEEDED
[2019-05-06 18:11] LABS: Anisocytosis 1+; Blood Morphology Comment NOTED (NOT SEEN); Burr Cells 1+; Platelet Estimate DECR; Rouleau NOTED; Urine White Blood Cell Casts OK
--- NOTE | 2019-05-06 18:12 | RAD REPORT ---
EXAM DESCRIPTION: RAD - Chest Single View - 05/06/2019 5:35 pm CLINICAL HISTORY: Altered mental status, shortness of breath COMPARISON: Chest Pa And Lat (2 Views) dated 04/17/2019 TECHNIQUE: AP portable chest image was obtained 05/06/2019 5:35 pm . FINDINGS: Chronic left lung interstitial opacification present. Moderate-sized right pleural effusio n is present similar to comparison. Heart size is distorted by substantial rotation. Patchy mid lung field opacification present likely the affects of pleural fluid and rotation artifact. No pneumothora x. No acute bony abnormality seen. No acute aortic findings suspected. IMPRESSION: Significantly limited chest film due to rotation. Moderate right pleural effusion similar to comparison.
--- NOTE | 2019-05-06 18:16 | RAD REPORT ---
EXAM DESCRIPTION: CT - Head Brain Wo Cont - 05/06/2019 6:05 pm CLINICAL HISTORY: MENTAL STATUS CHANGE, transient alteration of awareness COMPARISON: Head Brain Wo Cont dated 07/18/2017 TECHNIQUE: Axial 5 mm thick images of the head were obtained without IV contrast. All CT scans are performed using dose optimization technique as appropriate and may include automated exposure control or mA/KV adjustment according to patient size. FINDINGS: No intracranial hemorrhage, mass, edema or shift of mid-line structures. No acute infarcti on changes seen. No abnormal extra-axial fluid collections. Prominent atrophy and chronic ischemic ch anges match comparison. Ventricles remain in proportion. Mastoid air cells and visualized portions of the paranasal sinuses are clear. No acute bony findings. IMPRESSION: Negative non-contrast CT head examination for acute finding. Prominent atrophy and chronic ischemic change matching comparison.
--- NOTE | 2019-05-06 18:22 | RAD REPORT ---
EXAM DESCRIPTION: CT - Thorax Wo Con - 05/06/2019 6:07 pm CLINICAL HISTORY: Altered mental status, shortness of breath COMPARISON: Chest exam May 06 in April 17, CT chest February 2018 TECHNIQUE: Axial 5 mm thick images of the chest were obtained without IV contrast. All CT scans are performed using dose optimization technique as appropriate and may include automated exposure control or mA/KV adjustment according to patient size. FINDINGS: No acute infiltrate in the left lung field. Minimal atelectasis present on the left. There is a small left pleural effusion. Moderate right pleural effusion is present with right lung base at electasis. An acute infiltrate is not suspected. Significant hrsx-hc-cjrhj mediastinal shift is prese nt which has been previously seen. No pleural based mass peer No pneumothorax. No abnormal mediastinal or hilar masses or lymphadenopathy seen. Significant cardiomegaly is present increased over comparison. No pericardial effusion. Stenting of the descending thoracic aorta is pres ent. Stent terminates just above the mily of the diaphragm. There is significant aneurysmal dilatatio n of the aorta immediately distal to the stent. This is approximately 7.3 cm AP x 9.4 cm TR. This is an increase over the pre stent imaging from 2018. Intervening CT chest is not available at this [facility] ity. No chest wall mass or abnormal axillary lymphadenopathy. Limited abdomen imaging shows ascites. There significant fluid retention in the subcutaneous fatty tissues. IMPRESSION: Anasarca pattern with significant fluid retention in the subcutaneous fatty tissues, asc ites in a partially imaged abdomen and bilateral pleural effusions. Substantial cardiomegaly increased from 2018 without pericardial effusion. Patient has a 7.3 x 9.4 cm aortic aneurysm distal descending thoracic aorta near the mily of the diap hragm. This is at the termination point of the indwelling descending thoracic stent. The aortic aneurysm is much larger than the pre stent study of 2018. Intervening studies are not avai lable at this facility. Assessment is limited in the absence of contrast. Right lung base atelectasis.
[2019-05-06] MEDS ORDERED: NA CHLORIDE 0.9% 2,000 ML ONE (18:31)
[2019-05-06] MEDS ORDERED: CEFTRIAXONE/SWI 1gm 1 GM/10 ML SYR ONE (18:31)
--- NOTE | 2019-05-06 19:38 | ER ---
Nurse's Notes [facility] Name: Christa Ayala Age: 73 yrs Sex: Female : 1945 Arrival Date: 05/06/2019 Time: 16:49 Bed 3 Private MD: Diagnosis: Sepsis, unspecified organism;Urinary tract infection, site not specified;Altered mental status, unspecified;Hypothermia;Hypotension Presentation: 05/06 16:42 Presenting complaint: EMS states: called out for dyspnea, on EMS arrival pt was sv hypotensive at 82/66 manually, family reported she's been like this a few days. HR-66 97% on home O2. 16:42 Method Of Arrival: EMS: [facility] sv 16:49 Acuity: SONYA 2 ah 17:39 Presenting complaint: Child states: she has been having generalized weakness x 2 days sv and then today started having hypotension and not being as responsive as she normally is. Transition of care: patient was not received from another setting of care. Onset of symptoms was May 04, 2019. Risk Assessment: Do you want to hurt yourself or someone else? Patient reports no desire to harm self or others. Care prior to arrival: None. 17:40 Initial Sepsis Screen: Does the patient meet any 2 criteria? Temp <36.0*C (96.8*F)) or sv > 38.3*C (100.9*F). Systolic BP < 90 mmHg. Altered Mental Status. Yes Does the patient have a suspected source of infection? No. Patient's initial sepsis screen is negative. Triage Assessment: 16:45 General: Appears in no apparent distress. uncomfortable, Behavior is cooperative, sv drowsy. Pain: Denies pain. Neuro: Level of Consciousness is obeys commands, lethargic, Oriented to person, Weakness in bilateral arm(s) leg(s). Cardiovascular: Pulses are palpable in right radial artery and left radial artery Rhythm is sinus bradycardia. Respiratory: Airway is patent Respiratory effort is even, unlabored, shallow, Respiratory pattern is symmetrical. Derm: Skin is normal, Skin temperature is cool. Historical: - Allergies: 17:42 Codeine; sv 17:42 Demerol; sv 17:42 Iodine; sv - PMHx: 17:42 Anemia; Atrial Fib; enlarged aorta; CHF; COPD; Diabetes - NIDDM; Emphysema; GERD; High sv Cholesterol; Hypertension; Myocardial infarction; - Immunization history:: Adult Immunizations unknown. - Coronavirus screen:: The patient has NOT traveled to [place], [place], or [place] in the past 14 days. Proceed with normal triage process as indicated. The patient has NOT had contact with known/suspected case of Coronavirus? Proceed with normal triage procedures. - Social history:: Smoking status: Patient denies any tobacco usage or history of. - Ebola Screening: : No symptoms or risks identified at this time. Screenin:41 Abuse screen: Denies threats or abuse. Denies injuries from another. Nutritional hb screening: No deficits noted. Tuberculosis screening: No symptoms or risk factors identified. Fall Risk Total England Fall Scale indicates High Risk Score (45 or more points). Fall prevention measures have been instituted. Side Rails Up X 2 Frequent Obs/Assessments Occuring Family Present and informed to notify staff if the need to leave the bedside As available patient and family educated on Fall Prevention Program and Strategies. Assessment: 18:05 General: Appears in no apparent distress. Pain: Unable to use pain scale. FLACC scale hb score is 0 out of 10. Neuro: Level of Consciousness is obtunded. Cardiovascular: Heart tones S1 S2 present Capillary refill < 3 seconds Patient's skin is warm and dry. Rhythm is sinus bradycardia. Respiratory: Airway is patent Respiratory effort is even, unlabored, Respiratory pattern is regular, symmetrical, Breath sounds are diminished bilaterally. GI: No signs and/or symptoms were reported involving the gastrointestinal system. : No signs and/or symptoms were reported regarding the genitourinary system. EENT: No signs and/or symptoms were reported regarding the EENT system. Derm: Skin is dry, Skin is Skin temperature is warm. Musculoskeletal: Parent/caregiver report the patient having generalized weakness. 19:00 Reassessment: Patient appears in no apparent distress at this time. No changes from hb previously documented assessment. Patient and/or family updated on plan of care and expected duration. Pain level reassessed. Family remains at bedside. 19:30 General: Appears in no apparent distress. Behavior is calm. Pain: Unable to use pain ea scale. FLACC scale score is 0 out of 10. Neuro: Level of Consciousness is obtunded. Cardiovascular: Patient's skin is warm and dry. Respiratory: Airway is patent Respiratory effort is even, unlabored, Respiratory pattern is regular, symmetrical, Breath sounds are diminished bilaterally. : Carty in place to gravity drainage. Derm: Skin is dry, Skin is normal, Skin temperature is warm. 19:45 Reassessment: Provider at bedside updating pt on plan of care. ea 20:32 Reassessment: Patient and/or family updated on plan of care and expected duration. Pain ea level reassessed. Pt resting with eyes closed, respirations even and unlabored, chest expansions even and symmetrical. No s/s of pain or discomfort noted at this time. Pt remains on 4 L of O2 per nasal cannula. Pt opens eyes to loud verbal stimulus but does not respond to questions. 22:50 Reassessment: Patient and/or family updated on plan of care and expected duration. Pain ea level reassessed. Patient is alert, oriented x 3, equal unlabored respirations, skin warm/dry/pink. Admitted to ICU, pt left ED via stretcher, respirations even and unlabored, pt remains on 4 L of O2. No s/s of pain or discomfort noted at this time. Vital Signs: 17:00 BP 97 / 81; Pulse 70; Pulse Ox 93% ; ah 17:16 BP 90 / 68; Pulse 58; Resp 15; Pulse Ox 100% ; ah 17:40 Temp 89.8(R); sv 17:45 BP 99 / 80; Pulse 95; Resp 14; Pulse Ox 98% ; sv 18:17 BP 89 / 62; Pulse 56; Resp 14; Pulse Ox 98% 4 lpm ; hb 18:25 Weight 64.41 kg; Height 5 ft. 6 in. (167.64 cm); hb 18:44 BP 87 / 60; Pulse 57; Resp 12; Pulse Ox 96% on 4 lpm NC; hb 20:10 BP 85 / 64; Pulse 60; Resp 14; Temp 92; Pulse Ox 97% on 4 lpm NC; ea 20:38 BP 90 / 63; Pulse 61; Resp 18; Pulse Ox 98% on 4 lpm NC; ea 21:14 BP 107 / 79; Pulse 62; Resp 16; Pulse Ox 97% on 4 lpm NC; ea 22:09 BP 109 / 80; Pulse 63; Resp 16; Temp 92; Pulse Ox 97% on 4 lpm NC; ea 22:55 BP 102 / 78; Pulse 60; Resp 16; Pulse Ox 97% on 4 lpm NC; ea 18:25 Body Mass Index 22.92 (64.41 kg, 167.64 cm) hb ED Course: 16:49 Patient arrived in ED. ah 16:49 Triage completed. ah 16:50 Douglas Paniagua NP is PHCP. pm1 16:50 Antonio Kim MD is Attending Physician. pm1 16:50 Patient has correct armband on for positive identification. Placed in gown. Bed in low sv position. Call light in reach. Side rails up X2. laboratory monitor on. Pulse ox on. NIBP on. Warm blanket given. Head of bed elevated. 16:55 Arm band placed on. sv 17:00 First set of blood cultures drawn by me. sv 17:15 Second set of blood cultures drawn by me. sv 17:20 Inserted saline lock: 20 gauge in right forearm, using aseptic technique. Blood sv collected. Flushed right forearm with 2 ml normal saline. 17:20 Carty cath inserted, using sterile technique, 16 Fr., by me, balloon inflated, to sv gravity drainage, returned aubrey urine. Patient tolerated poorly. 17:22 Radiology exam delayed due to pt not stable at this time. mw3 17:35 Chest Single View XRAY In Process Unspecified. EDMS 17:37 Gloria Miranda, PALUA is Primary Nurse. sv 17:40 Flu and/or RSV swab sent to lab. sg 17:43 Urine collected: Carty catheter specimen, cloudy, aubrey colored. jb1 17:[address] via stretcher. sv 18:00 Report given to Verito MITCHELL. sv 18:04 CT Head Brain wo Cont In Process Unspecified. EDMS 18:07 CT Chest Wo Con In Process Unspecified. EDMS 18:15 Thermoregulation: Michelle blanket applied. sv 18:15 One-on-one care X 60 minutes. sv 19:00 Verito Chavez, PAULA is Primary Nurse. hb 19:24 Quirino Perez MD is Hospitalizing Provider. pm1 20:09 No provider procedures requiring assistance completed. Patient admitted, IV remains in ea place. Administered Medications: 17:51 Not Given (Temperature obtained and fluid changed to sepsis amount): NS 0.9% 250 ml IV pm1 at bolus once 18:04 Drug: NS 0.9% (30 ml/kg) 30 ml/kg Route: IV; Rate: bolus; Site: left forearm; hb 22:09 Follow up: Response: No adverse reaction; IV Status: Completed infusion; IV Intake: ea 2000ml 18:25 Drug: Rocephin 1 grams Route: IV; Rate: calculated rate; Site: left forearm; hb 19:00 Follow up: Response: No adverse reaction; IV Status: Completed infusion ea Intake: 22:09 IV: 2000ml; Total: 2000ml. ea Outcome: 19:38 Decision to Hospitalize by Provider. pm1 19:50 Instructed on Family instructed on need for admit, family verbalized the understanding ea of instruction 23:00 Admitted to ICU accompanied by nurse, accompanied by tech, via stretcher, room 6, with ea oxygen, on monitor, with chart, Report called to Receiving nurse in ICU 23:00 Condition: stable 23:03 Patient left the ED. ea Signatures: Dispatcher [employer] EDMS Daniel Marroquin jb1 Gloria Miranda RN RN sv Gay, Steven, RN RN sg Marinas, Patrick, NP [employer] pm1 Verito Chavez RN RN Karissa Liu RN RN ea Willis, Michelle mw3 Radha Foster RN RN Corrections: (The following items were deleted from the chart) 18:28 17:45 BP 83 / 71; Pulse 95bpm; Resp 14bpm; Pulse Ox 98%; ah sv 20:42 20:38 BP 90 / 63; Pulse 61bpm; Resp 18bpm; Pulse Ox 98% RA; ea ea 23:03 23:02 BP 102 / 78; Pulse 60bpm; Resp 16bpm; Pulse Ox 97% 4 lpm Nasal Cannula; ea ea
--- NOTE | 2019-05-06 19:39 | EDPHYS ---
Physician Documentation [facility] Name: Christa Ayala Age: 73 yrs Sex: Female : 1945 Arrival Date: 05/06/2019 Time: 16:49 Bed 3 Private MD: ED Physician Antonio Kim HPI: 05/06 17:36 This 73 yrs old Black Female presents to ER via EMS with complaints of Altered Mental pm1 Status, Hypotension. 17:36 The patient presents with decreased mental status. Onset: The symptoms/episode pm1 began/occurred 5 day(s) ago. Possible causes: unknown. Associated signs and symptoms: Pertinent positives: generalized weakness. Current symptoms: In the emergency department the patient's symptoms have worsened. The patient has been recently been admitted at [facility], from 04/13/2019 to 04/20/2019 for shortness of breath, edema, and weight gain to Dr. Stevens. History obtained from daughter who has POA. Patient easily aroused but not talking or responding to questions. Historical: - Allergies: 17:42 Codeine; sv 17:42 Demerol; sv 17:42 Iodine; sv - PMHx: 17:42 Anemia; Atrial Fib; enlarged aorta; CHF; COPD; Diabetes - NIDDM; Emphysema; GERD; High sv Cholesterol; Hypertension; Myocardial infarction; - Immunization history:: Adult Immunizations unknown. - Coronavirus screen:: The patient has NOT traveled to [place], [place], or [place] in the past 14 days. Proceed with normal triage process as indicated. The patient has NOT had contact with known/suspected case of Coronavirus? Proceed with normal triage procedures. - Social history:: Smoking status: Patient denies any tobacco usage or history of. - Ebola Screening: : No symptoms or risks identified at this time. ROS: 17:36 Eyes: Negative for injury, pain, redness, and discharge, ENT: Negative for injury, pm1 pain, and discharge, Neck: Negative for injury, pain, and swelling, Cardiovascular: Negative for chest pain, palpitations, and edema, Respiratory: Negative for shortness of breath, cough, wheezing, and pleuritic chest pain, Abdomen/GI: Negative for abdominal pain, nausea, vomiting, diarrhea, and constipation, Back: Negative for injury and pain, MS/Extremity: Negative for injury and deformity, Skin: Negative for injury, rash, and discoloration. 17:36 Constitutional: Positive for poor PO intake, Negative for fever. 17:36 Neuro: Positive for altered mental status. 17:36 Unable to obtain ROS due to altered mental status, Complete ROS and HPI obtained from pm1 daughter. Exam: 17:36 Head/Face: Normocephalic, atraumatic. pm1 17:36 Chest/axilla: Normal chest wall appearance and motion. Nontender with no deformity. No lesions are appreciated. 17:36 Abdomen/GI: Soft, non-tender, with normal bowel sounds. No distension or tympany. No guarding or rebound. No evidence of tenderness throughout. 17:36 Constitutional: The patient appears well groomed, frail, obviously ill. 17:36 ENT: External ear(s): are unremarkable, Ear canal(s): are normal. 17:36 Neck: External neck: is normal, Lymph nodes: no appreciated lymphadenopathy. 17:36 Cardiovascular: Rate: normal, Rhythm: regular, Pulses: no pulse deficits are appreciated. 17:36 Respiratory: the patient does not display signs of respiratory distress, Respirations: normal, Breath sounds: decreased breath sounds, are located in both bases. 17:36 Back: pain, is absent. 17:36 Musculoskeletal/extremity: Extremities: all appear grossly normal, with no appreciated pain with palpation. 17:36 Skin: Appearance: normal except for affected area, Turgor: is good. 17:36 Neuro: Orientation: Not oriented to person, place, time, situation, Mentation: responsive to voice not talking, Motor: moves all fours. Vital Signs: 17:00 BP 97 / 81; Pulse 70; Pulse Ox 93% ; ah 17:16 BP 90 / 68; Pulse 58; Resp 15; Pulse Ox 100% ; ah 17:40 Temp 89.8(R); sv 17:45 BP 99 / 80; Pulse 95; Resp 14; Pulse Ox 98% ; sv 18:17 BP 89 / 62; Pulse 56; Resp 14; Pulse Ox 98% 4 lpm ; hb 18:25 Weight 64.41 kg; Height 5 ft. 6 in. (167.64 cm); hb 18:44 BP 87 / 60; Pulse 57; Resp 12; Pulse Ox 96% on 4 lpm NC; hb 20:10 BP 85 / 64; Pulse 60; Resp 14; Temp 92; Pulse Ox 97% on 4 lpm NC; ea 20:38 BP 90 / 63; Pulse 61; Resp 18; Pulse Ox 98% on 4 lpm NC; ea 21:14 BP 107 / 79; Pulse 62; Resp 16; Pulse Ox 97% on 4 lpm NC; ea 22:09 BP 109 / 80; Pulse 63; Resp 16; Temp 92; Pulse Ox 97% on 4 lpm NC; ea 22:55 BP 102 / 78; Pulse 60; Resp 16; Pulse Ox 97% on 4 lpm NC; ea 18:25 Body Mass Index 22.92 (64.41 kg, 167.64 cm) hb MDM: 16:50 Patient medically screened. abhi 17:50 ED course: Discussed severity of illness, urosepsis, with daughter. Patient has a poor pm1 prognosis based on urosepsis, hypothermia, and hypovolemia with her chronic illnesses. Daughter has POA said that she has not discussed with her family regarding advance directives. Reviewing notes, Rodney discussed option for hospice on 04/20/2019 with the family. 18:31 ED course: Discussed aneurysm findings with her son and informed of poor prognosis with pm1 current illness and aneurysmal changes. He has not discussed advanced directives with the family and would like to defer to his sister to discussed code status. Patient has not been wearing her life vest for many months and has been discontinued from milrinone. 19:23 Data reviewed: vital signs. Data interpreted: Pulse oximetry: on room air is 96 %. pm1 Interpretation: normal. Counseling: I had a detailed discussion with the patient and/or guardian regarding: the historical points, exam findings, and any diagnostic results supporting the discharge/admit diagnosis, lab results, radiology results, the need for further work-up and treatment in the hospital. 19:23 ED course: POKeya does not want the patient to be intubated, connected to any machines, or pm1 have TPN. She is not certain if she wants invasive lines, pressors, and CPR. She wants time to discuss with her family . 21:16 ED course: Patient's daughter who has power of litigation attorney wants compressions, but no pm1 advanced airway. Would like pressors if needed. No dialysis treatment. No attachment to any devices that will keep her alive. No surgery. No intravenous nutrition. 05/06 16:58 Order name: Urine Culture pm1 05/06 16:58 Order name: Amylase, Serum; Complete Time: 18:11 pm1 05/06 16:58 Order name: Basic Metabolic Panel; Complete Time: 18:11 pm1 05/06 16:58 Order name: Blood Culture Adult (2) pm1 05/06 16:58 Order name: CBC with Diff; Complete Time: 18:16 pm1 05/06 16:58 Order name: Ckmb; Complete Time: 18:11 pm1 05/06 16:58 Order name: CPK; Complete Time: 18:11 pm1 05/06 16:58 Order name: Lactate; Complete Time: 18:11 pm1 05/06 16:58 Order name: LFT's; Complete Time: 18:11 pm1 05/06 16:58 Order name: Lipase; Complete Time: 18:11 pm1 05/06 16:58 Order name: Procalcitonin; Complete Time: 18:16 pm1 05/06 16:58 Order name: Protime (+inr); Complete Time: 17:59 pm1 05/06 16:58 Order name: Ptt, Activated; Complete Time: 17:59 pm1 05/06 16:58 Order name: Troponin (emerg Dept Use Only); Complete Time: 18:11 pm1 05/06 16:58 Order name: Urine Microscopic Only; Complete Time: 18:11 pm1 05/06 17:14 Order name: Glucose, Ancillary Testing; Complete Time: 17:18 EDMS 05/06 17:47 Order name: Flu; Complete Time: 18:28 pm1 05/06 17:48 Order name: Urine Dipstick--Ancillary (enter results); Complete Time: 17:59 ms 05/06 17:59 Order name: CBC Smear Scan; Complete Time: 18:16 EDMS 05/06 20:54 Order name: Lactate Sepsis 2 HR Follow-up; Complete Time: 21:06 EDMS 05/06 22:08 Order name: Lactate EDMS 05/06 22:08 Order name: Procalcitonin EDMS 05/06 22:08 Order name: CBC with Automated Diff EDMS 05/06 22:08 Order name: CBC with Automated Diff EDMS 05/06 22:08 Order name: Comprehensive Metabolic Panel EDMS 05/06 22:08 Order name: Comprehensive Metabolic Panel EDMS 05/06 22:08 Order name: Lactate EDMS 05/06 22:08 Order name: Lactate EDMS 05/06 22:08 Order name: Magnesium EDMS 05/06 22:08 Order name: Magnesium EDMS 05/06 16:58 Order name: Chest Single View XRAY; Complete Time: 18:16 pm1 05/06 16:58 Order name: Accucheck; Complete Time: 17:44 pm1 05/06 16:58 Order name: Cardiac monitoring; Complete Time: 17:44 pm1 05/06 16:58 Order name: EKG - Nurse/Tech; Complete Time: 17:44 pm1 05/06 16:58 Order name: IV Saline Lock - Large Bore; Complete Time: 17:44 pm1 05/06 16:58 Order name: Labs collected and sent; Complete Time: 17:44 pm1 05/06 16:58 Order name: O2 Per Protocol; Complete Time: 17:44 pm1 05/06 16:58 Order name: O2 Sat Monitoring; Complete Time: 17:44 pm1 05/06 16:58 Order name: Urine Dipstick-Ancillary (obtain specimen); Complete Time: 17:44 pm1 05/06 16:58 Order name: CT Head Brain wo Cont; Complete Time: 18:20 pm1 05/06 16:58 Order name: Straight Cath - Urine; Complete Time: 17:43 pm1 05/06 17:32 Order name: CT Chest Wo Con; Complete Time: 18:28 pm1 05/06 17:52 Order name: Michelle Oconnor; Complete Time: 18:16 pm1 05/06 22:08 Order name: CONS Physician Consult EDMS 05/06 22:08 Order name: NPO EDMS 05/06 22:08 Order name: Procalcitonin EDMS 05/06 22:08 Order name: Procalcitonin EDMS 05/06 22:08 Order name: Phosphorus EDMS 05/06 22:09 Order name: Phosphorus EDMS 05/06 22:09 Order name: NT PRO-BNP EDMS 05/06 22:09 Order name: NT PRO-BNP EDMS 05/06 22:09 Order name: Troponin I EDMS 05/06 22:09 Order name: Troponin I EDMS 05/06 22:09 Order name: Troponin I EDMS 05/06 22:12 Order name: Basic Metabolic Panel EDMS Administered Medications: 17:51 Not Given (Temperature obtained and fluid changed to sepsis amount): NS 0.9% 250 ml IV pm1 at bolus once 18:04 Drug: NS 0.9% (30 ml/kg) 30 ml/kg Route: IV; Rate: bolus; Site: left forearm; hb 22:09 Follow up: Response: No adverse reaction; IV Status: Completed infusion; IV Intake: ea 2000ml 18:25 Drug: Rocephin 1 grams Route: IV; Rate: calculated rate; Site: left forearm; hb 19:00 Follow up: Response: No adverse reaction; IV Status: Completed infusion ea Disposition: 05/07 07:36 Co-signature as Attending Physician, Antonio Kim MD I agree with the assessment and [facility] plan of care. Disposition: 05/06/19 19:38 Hospitalization ordered by Quirino Perez for Inpatient Admission. Preliminary diagnosis are Sepsis, unspecified organism, Urinary tract infection, site not specified, Altered mental status, unspecified, Hypothermia, Hypotension. - Bed requested for Intensive Care Unit. - Status is Inpatient Admission. ea - Condition is Serious. - Problem is new. - Symptoms have improved. UTI on Admission? Yes Signatures: Dispatcher [employer] EDND Gloria Miranda RN RN sv Webb, Martha, RN RN mw Anderson, Corey, MD MD cha Mickail, Joel, GIULIANA PA shakirm Douglas Paniagua, ROLL GRINDER ROLL GRINDER pm1 Verito Chavez RN RN Karissa Liu RN RN ea Corrections: (The following items were deleted from the chart) 05/06 22:13 19:38 Hospitalization Ordered by Quirino Perez MD for Inpatient Admission. Preliminary diagnosis is Sepsis, unspecified organism; Urinary tract infection, site not specified; Altered mental status, unspecified; Hypothermia; Hypotension. Bed requested for Intensive Care Unit. Status is Inpatient Admission. Condition is Serious. Problem is new. Symptoms have improved. UTI on Admission? Yes. pm1 23:03 22:13 05/06/2019 19:38 Hospitalization Ordered by Quirino Perez MD for Inpatient ea Admission. Preliminary diagnosis is Sepsis, unspecified organism; Urinary tract infection, site not specified; Altered mental status, unspecified; Hypothermia; Hypotension. Bed requested for Intensive Care Unit. Status is Inpatient Admission. Condition is Serious. Problem is new. Symptoms have improved. UTI on Admission? Yes. mw
[2019-05-06] MEDS ORDERED: ONDANSETRON 4 MG/2 ML VIAL IV PRN (22:00)
[2019-05-06] MEDS ORDERED: ACETAMINOPHEN 500 MG TAB PO PRN (22:00)
[2019-05-06] MEDS ORDERED: NA CHLORIDE 0.9% 1,000 ML IV SCH (22:00)
[2019-05-06] MEDS: METHYLPREDNISOLONE 125 MG INJ IV SCH (23:24)
[2019-05-06 23:48] LABS: BUN Blood Urea Nitrogen 96 mg/dL (7-18); Bicarbonate 26 mmol/L (21-32); Glucose Level 128 mg/dL (74-106); Potassium 4.5 mmol/L (3.5-5.1); Sodium Level 149 mmol/L (136-145); Troponin I < 0.02 ng/mL (0.0-0.045)
[2019-05-07] MEDS ORDERED: NA CHLORIDE 0.9% 50 ML ONE (00:22)
[2019-05-07] MEDS ORDERED: PIPERACIL/TAZO 2.25 GM VIAL IV ONE (00:22)
[2019-05-07] MEDS ORDERED: PIPER/TAZO/NS 2.25gm 2.25 GM/50 ML BAG IVPB SCH (01:00)
[2019-05-07] MEDS ORDERED: D5 0.45 NS 1,000 ML IV SCH (02:00)
[2019-05-07] MEDS: ALBUTEROL 2.5 MG/3 ML NEB SOL NEB SCH ×4 (02:10→20:00)
[2019-05-07] MEDS: IPRATROPIUM BROM 0.5MG/2.5ML NEB SCH ×4 (02:10→20:00)
[2019-05-07] MEDS: METHYLPREDNISOLONE 125 MG INJ IV SCH ×4 (05:52→23:48)
[2019-05-07 06:34] LABS: Absolute Lymphocytes (CBC) 0.1 K/uL (0.7-4.9); Basophils % 0.2 % (0-1.3); Hematocrit 31.1 % (36.0-45.0); Lymphocytes % 1.5 % (15.3-44.8); MPV 10.9 fL (7.6-11.3); RBC Red Blood Cell Count 3.19 M/uL (3.86-4.86)
[2019-05-07 06:39] LABS: ALT/SGPT 45 U/L (12-78); AST/SGOT 40 U/L (15-37); Albumin 2.4 g/dL (3.4-5.0); Alkaline Phosphatase 157 U/L (45-117); BUN Blood Urea Nitrogen 94 mg/dL (7-18); Bicarbonate 25 mmol/L (21-32); Bilirubin Total 0.6 mg/dL (0.2-1.0); Glucose Level 140 mg/dL (74-106); Magnesium 2.5 mg/dL (1.8-2.4); NT PRO-BNP 43460 pg/mL (<125); Phosphorus 5.7 mg/dL (2.5-4.9); Potassium 4.6 mmol/L (3.5-5.1); Protein, Total 6.1 g/dL (6.4-8.2); Sodium Level 149 mmol/L (136-145); Troponin I < 0.02 ng/mL (0.0-0.045)
[2019-05-07 07:22] LABS: Thyroid Stimulating Hormone 2.15 uIU/mL (0.360-3.740)
[2019-05-07 08:42] LABS: Arterial Blood Carboxyhemoglob 2.7 % (0-1.5); Blood Gas Oxyhemoglobin 84.5 % (94-97); Blood O2 Saturation 87.6 % (92-98.5)
--- NOTE | 2019-05-07 08:46 | RAD REPORT ---
EXAM DESCRIPTION: RAD - Chest Single View - 05/07/2019 8:28 am CLINICAL HISTORY: Fluid volume overload COMPARISON: Chest Single View dated 05/06/2019; Chest Pa And Lat (2 Views) dated 04/17/2019; Thorax Wo Con dated 05/06/2019; Abdomen Pelvis Wo Contrast dated 06/26/2018 TECHNIQUE: AP portable chest image was obtained 05/07/2019 8:28 am . FINDINGS: Lungs are better aerated than on the prior study. Lung volumes are improved. Right pleural effusion remains. There is atelectasis at the right base. Right base infiltrate component cannot be excluded. Pleural and parenchymal spaces overall appear improved. Prominent cardiomegaly again noted. Upper lobe vasculature within normal limits. No measurable pleur al effusion and no pneumothorax. No acute bony abnormality seen. No acute aortic finding seen. Ritchie nazario thoracic endovascular stent is in place. Prior day CT study showed large aortic aneurysm near th e diaphragm. This was at the inferior margin of the stent. Similar-sized aneurysm was seen on a June [address] study. IMPRESSION: Improved lung volumes and improved aeration of the lung gil. Right pleural effusion with right base atelectasis again noted. Cardiomegaly.
--- NOTE | 2019-05-07 08:47 | EKG ---
Test Date: 2019-05-06 Test Time: 17:04:10 [employer] Hand[employer] Plant Operator: DAVIAN MEASUREMENT RESULTS: Intervals: Rate: 49 FL: QRSD: 104 QT: 548 QTc: 495 [place]: P: FL: QRS: -6 T: 37 INTERPRETIVE STATEMENTS: Sinus bradycardia Possible Inferior infarct, age undetermined Non specific T abnormality Abnormal ECG Compared to ECG 04/13/2019 13:00:59 Myocardial infarct finding now present Sinus rhythm no longer present T-wave abnormality no longer present Electronically Signed On 05-07-19 08:47:06 GEOLOGY INSTRUCTOR by John Foster
--- NOTE | 2019-05-07 08:48 | P.HP ---
Certification for Inpatient Patient admitted to: Inpatient With expected LOS: >2 Midnights Patient will require the following post-hospital care: None Practitioner: I am a practitioner with admitting privileges, knowledge of patient current condition, hospital course, and medical plan of care. Services: Services provided to patient in accordance with Admission requirements found in Title 42 Section 412.3 of the Code of Federal Regulations Patient History Date of Service: 05/06/19 Reason for admission: Acute renal failure; hypothermia; pancytopenia; hypernatremia History of Present Illness: Patient is a 73-year-old female who was recently discharged from the hospital with pneumonia. Patient had an echocardiogram which revealed systolic dysfunction and pulmonary hypertension with elevated right-sided heart pressures. Patient was diuresed and treated effectively. At that time patient was debilitated and patient's PCP's spoke to the family regarding hospice care. Patient decided against hospice care. Patient was admitted on this admission for further evaluation. Patient family has decided against intubation and they do not want cardioversion. They do want vasopressor support as well as CPR if needed. At this present time talk to them about a cell as protocol which may require cardioversion during the process of chest compression. They still were against cardioversion/as well as changing code status at this time. At this time will continue with antibiotic therapy. Patient severely uremic which may be contributing to her altered mentation. Hydrate gently. Admit to the intensive care unit. Allergies iodine Allergy (Mild, Verified 05/07/19 00:57) Itching/Hives/Rash codeine Adverse Reaction (Intermediate, Verified 05/07/19 00:57) Hives/Rash Home Medications: Acetaminophen [Tylenol*] 2 tab PO Q4H PRN 04/13/19 Aspirin 1 tab PO DAILY 04/13/19 Atorvastatin Calcium [Lipitor*] 40 mg PO BEDTIME 04/13/19 Bumetanide [Bumex*] 2 mg PO BID 04/13/19 Carvedilol [Coreg] 1 tab PO BID 04/13/19 Clopidogrel Bisulfate [Plavix*] 1 tab PO DAILY 04/13/19 Escitalopram Oxalate 1 tab PO DAILY 04/13/19 Fluticasone/Umeclidin/Vilanter [Trelegy Ellipta 100-62.5-25] 1 puff IN DAILY 01/21 Pantoprazole [Protonix Tab*] 40 mg PO DAILY 04/13/19 Spironolactone [Aldactone*] 25 mg PO DAILY 04/13/19 Insulin Aspart [Novolog Flexpen] 14 units SQ DAILY PRN 04/14/19 Isosorbide Mononitrate [Isosorbide Mononitrate ER] 30 mg PO DAILY 04/14/19 - Past Medical/Surgical History Has patient received pneumonia vaccine in the past: Yes Diabetic: Yes -: HTN -: Hyperlipidemia -: Diabetes mellitus type 2 [id number] -: COPD, oxygen-dependent 2L NC -: CAD with prior stent -: Systolic congestive heart failure, ejection fraction 30% -: Thoracic aortic aneurysm -: Chronic kidney disease -: Anemia of chronic disease -: GERD -: Former tobacco use -: atrial fibrillation -: Hiatal hernia repair -: Aortic aneurysm -: 2 cardiac stents (2010) Psychosocial/ Personal History: Patient is - Family History Father Medical History: Heart disease Mother Medical History: Hypertension, Diabetes Sister Medical History: Diabetes - Social History Smoking Status: Former smoker Alcohol use: No CD- Drugs: No Caffeine use: Yes Place of Residence: Home Review of Systems is unable to be obtained Physical Examination - Vital Signs Temperature: 97.2 F Blood Pressure: 103/73 Pulse: 75 Respirations: 27 Pulse Ox (%): 91 - Physical Exam General: Severe distress, Confused, Unresponsive Respiratory: Clear to auscultation bilaterally, Normal air movement Cardiovascular: Regular rate/rhythm, Normal S1 S2, No murmurs Gastrointestinal: Normal bowel sounds, Soft and benign, Non-distended, No tenderness Musculoskeletal: No clubbing, No swelling, No tenderness Integumentary: No rashes Neurological: Normal gait, Normal speech, Normal strength at 5/5 x4 extr, Normal tone, Sensation intact, Cranial nerves 3-12 intact, Normal affect Lymphatics: No axilla or inguinal lymphadenopathy - Studies Laboratory Data (last 24 hrs) 05/06/19 17:08: PT 16.7 H, INR 1.44, APTT 45.4 H 05/06/19 17:08: Sodium 148 H, Potassium 4.9, BUN 101 H D, Creatinine 2.34 H, Glucose 157 H, Total Bilirubin 0.8, AST 67 H, ALT 52, Alkaline Phosphatase 172 H , Amylase 48, Lipase 68 L 05/06/19 17:05: WBC 3.0 L D, Hgb 9.7 L, Hct 32.6 L, Plt Count 66 L D Microbiology Data (last 24 hrs): 05/06/19 17:40 Nasopharnyx Influenza Type A Antigen Screen - Final 05/06/19 17:40 Nasopharnyx Influenza Type B Antigen Screen - Final Assessment & Plan - Problems (Diagnosis) (1) Acute kidney injury Onset Date: 10/03/17 Current Visit: No Status: Acute (2) Anemia, chronic disease Onset Date: 02/13/18 Current Visit: No Status: Acute (3) CHF exacerbation Onset Date: 12/09/17 Current Visit: No Status: Acute (4) COPD with exacerbation Onset Date: 04/25/17 Current Visit: No Status: Acute (5) CAD (coronary artery disease) Onset Date: 04/25/17 Current Visit: No Status: Chronic Qualifiers: (6) COPD (chronic obstructive pulmonary disease) Onset Date: 10/03/17 Current Visit: No Status: Chronic Qualifiers: (7) Diabetes mellitus type 2 Onset Date: 04/25/17 Current Visit: No Status: Chronic (8) Hyperlipidemia Onset Date: 10/03/17 Current Visit: No Status: Chronic Qualifiers: (9) Thoracic aneurysm without mention of rupture Onset Date: 02/13/18 Current Visit: No Status: Chronic Qualifiers: Presence of rupture: without rupture - Plan Plan: 1. Patient has been admitted for acute on chronic renal insufficiency. Will go ahead and hydrate the patient and see if her renal function improves. Patient has multiple medical issues which the family only wants conservative management. Patient has a thoracic aortic aneurism which is large and would require surgical management. No surgical intervention is requested by family. Patient also would need dialysis; however, patient does not want hemodialysis. Patient used to wear life vest which patient no longer request to wear. Patient is wanting to be a do not intubate. The patient does not want cardioversion. The family does want upper see with vasopressor support and CPR if necessary. Nephrology consultation and pulmonary consultation will also be placed. Discharge Plan: Home Plan to discharge in: Greater than 2 days - Advance Directives Does patient have a Living Will: No Does patient have a Durable POA for Healthcare: No - Code Status/Comfort Care Code Status Assessed: Yes Code Status: Full Code Critical Care: Yes Time Spent Managing PTS Care (In Minutes): 45
[2019-05-07 08:57] LABS: Platelet Estimate DECR; Urine White Blood Cell Casts OK
[2019-05-07 08:58] LABS: Anisocytosis 1+; Blood Morphology Comment NOTED (NOT SEEN); Burr Cells 1+; Platelets, Giant PRESENT; Rouleau NOTED
[2019-05-07] MEDS ORDERED: Meropenem 500 MG in NA CHLORIDE 0.9% 100 ML IV SCH (09:00)
[2019-05-07] MEDS ORDERED: Meropenem 500 MG VIAL IV SCH (09:00)
[2019-05-07] MEDS: D5 0.45 NS 1,000 ML IV SCH ×2 (09:00→20:06)
[2019-05-07] MEDS: ENOXAPARIN 30 MG/0.3 ML SQ SCH (10:04)
[2019-05-07] MEDS: Meropenem 500 MG in NA CHLORIDE 0.9% 100 ML IV SCH ×2 (11:21→20:07)
[2019-05-07 11:30] LABS: Potassium 4.6 mmol/L (3.5-5.1)
--- NOTE | 2019-05-07 13:14 | CON ---
History Of Present Illness: Ms. Ayala is 73. She came to the hospital with altered mental status and dyspnea. She has severe end-stage heart disease. She has been turned down for a transplant. S he does not have a defibrillator. In the past, she had a LifeVest, but that was discontinued and she has severe heart failure symptoms along with altered mental status. In the past, she had been on mi lrinone drip. She takes bumetanide 2 mg b.i.d., spironolactone, acetaminophen, aspirin, escitalopram , Plavix, atorvastatin, Protonix, Trelegy Ellipta, carvedilol, insulin, and isosorbide mononitrate. She has anemia, marked renal dysfunction with GFR 26 mL/minute, in the past it has been even lower. She is in the ICU. She has a do not intubate order. Physical Examination: General: She is obtunded. She can be aroused, but does not speak any meaningful words or seem to re spond to anything other than the noise and tactile stimuli. She is breathing at a constant rate and is not Ignacio-Regan respiration. HEENT: Her mouth is open. All of her mucous membranes are dry. Lungs: Not many breath sounds on the right at all. On the left, fairly normal-sounding breath sound s. Heart: Reveals a laterally displaced, inferiorly displaced diffuse apical impulse, holosystolic murm ur. Abdomen: Soft. Extremities: There is edema. Distal pulses not palpable. Impression: The patient is near end of life. I am not sure what her mental status change is from. Neurological consult is probably pending. She is being treated for what may be pneumonia on the rig t. It looks like severe atelectasis, elevated right hemidiaphragm. She is getting meropenem and met hylprednisolone to try and help what could be a pneumonia. Overall, I think the patient is near end of life no matter what is done. Fluid balance may become a problem. Her most recent echocardiogram showed that her ejection fraction was a little higher than it had been in the past. In January, we e stimated her ejection fraction to be 45%. Thank you very much for your kind referral of Ms. Ayala. I will follow her with you. DOMITILA/CHRISTY Voice ID: [id number] Report ID: [id number]
--- NOTE | 2019-05-07 13:41 | P.PN ---
Subjective Date of Service: 05/07/19 Primary Care Provider: Dr. Stevens Chief Complaint: Acute renal failure; hypothermia; pancytopenia; hypernatremia Subjective: Other (Patient stable this time.) Physical Examination - Vital Signs Temperature: 97.8 F Blood Pressure: 109/83 Pulse: 80 Respirations: 17 Pulse Ox (%): 96 - Physical Exam General: Alert, Cooperative HEENT: Atraumatic Neck: Supple Respiratory: Crackles/rales Cardiovascular: Normal pulses, Regular rate/rhythm Gastrointestinal: Normal bowel sounds Neurological: Normal speech, Normal strength at 5/5 x4 extr, Normal tone - Studies Laboratory Data (last 24 hrs) 05/06/19 17:08: PT 16.7 H, INR 1.44, APTT 45.4 H 05/06/19 17:08: Sodium 148 H, Potassium 4.9, BUN 101 H D, Creatinine 2.34 H, Glucose 157 H, Total Bilirubin 0.8, AST 67 H, ALT 52, Alkaline Phosphatase 172 H , Amylase 48, Lipase 68 L 05/06/19 17:05: WBC 3.0 L D, Hgb 9.7 L, Hct 32.6 L, Plt Count 66 L D Microbiology Data (last 24 hrs): 05/06/19 17:40 Nasopharnyx Influenza Type A Antigen Screen - Final 05/06/19 17:40 Nasopharnyx Influenza Type B Antigen Screen - Final Medications List Reviewed: Yes Assessment & Plan Discharge Plan: Home Plan to discharge in: Greater than 2 days Physician Review Additional Text: Impression: Uremic encephalopathy with acute on chronic renal disease stage II Acute on chronic respiratory failure secondary to acute on chronic systolic CHF and COPD exacerbation Pancytopenia Hypertension Depression CAD GERD Diabetes mellitus type 2 Plan: Uremic encephalopathy with acute on chronic renal disease stage II: Patient more alert. Will continue with IV fluids. Nephrology consulted. Await further recommendation. Acute on chronic respiratory failure secondary to acute on chronic systolic CHF and COPD exacerbation: Continue with COPD treatment. Pulmonology consulted to further evaluate. Restart diuretic therapy. Will monitor balance of IV fluids and diuretic therapy. Case reviewed. Patient likely requires hospice. Neurology Stroke Physician discussed advanced directives with family. Patient is do not intubate. Will discuss with PCP who will take over tomorrow. Pancytopenia: Monitor closely. Hypertension: Hold blood pressure medication at this time. Depression: Restart medication CAD: Restart aspirin Plavix. GERD: Continue medication Diabetes mellitus type 2: Will monitor Accu-Cheks. Sliding scale in place. Time Spent Managing Pts Care (In Minutes): 55
[2019-05-07 16:49] LABS: Arterial Blood Carboxyhemoglob 2.6 % (0-1.5); Blood Gas Oxyhemoglobin 91.4 % (94-97); Blood O2 Saturation 94.6 % (92-98.5)
[2019-05-07] MEDS ORDERED: ATORVASTATIN 40 MG TAB PO SCH (21:00)
[2019-05-08] MEDS: ALBUTEROL 2.5 MG/3 ML NEB SOL NEB SCH ×4 (01:20→20:10)
[2019-05-08] MEDS: IPRATROPIUM BROM 0.5MG/2.5ML NEB SCH ×4 (01:20→20:10)
--- NOTE | 2019-05-08 03:10 | CON ---
Date of Consultation: 05/07/2019 Chief Complaint: Hypernatremia, hyperosmolar acute kidney injury. History: Patient was found to have severe hyperazotemia, BUN of 98, creatinine of 2.2, and sodium 149, potassium 4.6 chloride 117, glucose is 106. The patient has nonoliguric urine output. Nephrology consultation is requested for acute on chronic kidney injury. Creatinine level was ranging from 2.17 to 2.34 during this admission. BUN is elevated and remains elevated up to 101. Patient is on IV fluids for sepsis and severe hypotension. She was found to have elevated BNP and cardiology consultation is requested for evaluation of possible congestive heart failure with coronary artery disease. Patient has multiple medical problems. She has end-stage heart disease, severe cardiorenal syndrome and congestive heart failure. She had LifeVest before she developed severe heart failure along with altered mental status. Patient was on Milrinone drip and Bumex spironolactone. She is on Plavix and atorvastatin. She has severe anemia and kidney dysfunction with GFR of 26 corresponding with chronic kidney disease stage 4. She is admitted to ICU. She is on BiPAP. Review of Systems: Unobtainable. Patient cannot provide review of systems. Past Medical History: Hypertension, hyperlipidemia, diabetes mellitus type 2 non-insulin dependent, COPD oxygen dependent on 2 L nasal cannula, coronary artery disease with prior stent, systolic congestive heart failure, ejection fraction below 30%, thoracic aortic aneuric, chronic kidney disease stage 3 accelerated to stage IV, anemia of chronic kidney, history of tobacco use, atrial fibrillation, hiatal hernia repair, aortic aneurysm, 2 cardiac stents. Family History: Heart disease, hypertension, diabetes. Social History: Former smoker. Denies alcohol or illicit drugs. Physical Examination: Vital Signs: Blood pressure 103/70, heart rate 75, temperature 97.2, SpO2 91%. Patient is on BiPAP severe with severe respiratory distress, confused, unresponsive. Eyes: Anicteric sclerae. No hemorrhagic changes. Ears, Nose, Mouth, and Throat: Oral mucosa moist. No pallor. Neck: Supple. No bruits. Lungs: Coarse breath sound bilaterally. Heart: S1 and S2. No pericardial friction rub. Abdomen: Soft, benign, nontender. No rebound. Extremities: Edema present. No clubbing, no cyanosis. Neurologic: No tremors. Cranial nerves intact. Laboratory Data: Sodium 149, potassium 4.6, chloride 117, CO2 25, BUN 98, creatinine 2.2, calcium 7.9, hemoglobin 9.3, WBC 3.5, platelet count is 80,000. Urinalysis showed specific gravity of 1.025, blood 2+, leukocyte esterase 1+, rbc less than 5, wbc from 5 to 10. Impression And Plan: Chronic kidney disease, acute kidney injury associated with hypernatremia, renal hypoperfusion, and nonoliguric acute kidney injury. Patient is on IV fluids for sepsis and septic shock. Patient was found to have increased leukocyte count in the urine. Plan is to monitor blood culture, urine culture, and continue antibiotics as needed. Patient has cardiorenal syndrome with severe congestive heart failure and coronary artery disease, proteinuria screen is negative. Patient will have workup for possible nephritis , although likely has cardiorenal syndrome. At this point due to sepsis she is on IV fluids. Plan is to screen for rhabdomyolysis to check CK level and obtain a renal ultrasound to assess kidney size and echotexture. NERIS/CHRISTY Voice ID: [id number] Report ID: [id number] ESAU
[2019-05-08 05:00] LABS: Absolute Lymphocytes (CBC) 0.1 K/uL (0.7-4.9); Basophils % 0.4 % (0-1.3); Hematocrit 32.8 % (36.0-45.0); Lymphocytes % 2.3 % (15.3-44.8); MPV 10.7 fL (7.6-11.3); RBC Red Blood Cell Count 3.34 M/uL (3.86-4.86)
[2019-05-08] MEDS: D5 0.45 NS 1,000 ML IV SCH (05:00)
[2019-05-08 05:23] LABS: Magnesium 2.6 mg/dL (1.8-2.4); Phosphorus 5.4 mg/dL (2.5-4.9); Potassium 4.6 mmol/L (3.5-5.1)
[2019-05-08] MEDS: METHYLPREDNISOLONE 125 MG INJ IV SCH (05:45)
[2019-05-08] MEDS: ARFORMOTEROL TARTRATE 15 MCG/2 ML VIAL.NEB NEB SCH ×2 (08:23→20:10)
--- NOTE | 2019-05-08 08:28 | P.PN ---
Subjective Date of Service: 05/08/19 Primary Care Provider: Dr. Stevens Chief Complaint: Respiratory failure and renal failure and hypernatremia Subjective: Improving (Patient is improving more alert responsive final signs all stable feel swallow study) Review of Systems General: Weakness, Malaise Respiratory: Shortness of Breath Physical Examination - Vital Signs Temperature: 97 F Blood Pressure: 118/86 Pulse: 74 Respirations: 17 Pulse Ox (%): 100 - Physical Exam General: Alert, In no apparent distress, Oriented x3 Respiratory: Expiratory wheezes Cardiovascular: Regular rate/rhythm, Normal S1 S2, Edema - Studies Medications List Reviewed: Yes Assessment & Plan - Problems (Diagnosis) (1) Respiratory failure Current Visit: Yes Status: Acute Plan: Patient is 73 years of age recurrent hospital admissions admitted with respiratory distress hypernatremia worsening renal function urinalysis positive for E coli change to Rocephin probably prerenal change to D5 water patient is mildly hypercapnic the swallow study Dc diuretics Dc steroids continue with bronchodilators prognosis very poor Qualifiers: Chronicity: chronic Physician Review Additional Text: Impression: Uremic encephalopathy with acute on chronic renal disease stage II Acute on chronic respiratory failure secondary to acute on chronic systolic CHF and COPD exacerbation Pancytopenia Hypertension Depression CAD GERD Diabetes mellitus type 2 Plan: Uremic encephalopathy with acute on chronic renal disease stage II: Patient more alert. Will continue with IV fluids. Nephrology consulted. Await further recommendation. Acute on chronic respiratory failure secondary to acute on chronic systolic CHF and COPD exacerbation: Continue with COPD treatment. Pulmonology consulted to further evaluate. Restart diuretic therapy. Will monitor balance of IV fluids and diuretic therapy. Case reviewed. Patient likely requires hospice. Sas Sql Developer discussed advanced directives with family. Patient is do not intubate. Will discuss with PCP who will take over tomorrow. Pancytopenia: Monitor closely. Hypertension: Hold blood pressure medication at this time. Depression: Restart medication CAD: Restart aspirin Plavix. GERD: Continue medication Diabetes mellitus type 2: Will monitor Accu-Cheks. Sliding scale in place.
--- NOTE | 2019-05-08 08:32 | P.CNS ---
Date of Consult: 05/07/19 Primary Care Provider: Dr. Stevens Chief Complaint: Respiratory failure and renal failure and hypernatremia History of Present Illness: Patient is 73 years of age recurrent hospital admissions admitted with respiratory distress transfer to the ICU worsening renal function and hypernatremia together with respiratory distress possible sepsis Allergies iodine Allergy (Mild, Verified 05/07/19 00:57) Itching/Hives/Rash codeine Adverse Reaction (Intermediate, Verified 05/07/19 00:57) Hives/Rash Home Medications: Acetaminophen [Tylenol*] 2 tab PO Q4H PRN 04/13/19 Aspirin 1 tab PO DAILY 04/13/19 Atorvastatin Calcium [Lipitor*] 40 mg PO BEDTIME 04/13/19 Bumetanide [Bumex*] 2 mg PO BID 04/13/19 Carvedilol [Coreg] 1 tab PO BID 04/13/19 Clopidogrel Bisulfate [Plavix*] 1 tab PO DAILY 04/13/19 Escitalopram Oxalate 1 tab PO DAILY 04/13/19 Fluticasone/Umeclidin/Vilanter [Trelegy Ellipta 100-62.5-25] 1 puff IN DAILY 01/21 Pantoprazole [Protonix Tab*] 40 mg PO DAILY 04/13/19 Spironolactone [Aldactone*] 25 mg PO DAILY 04/13/19 Insulin Aspart [Novolog Flexpen] 14 units SQ DAILY PRN 04/14/19 Isosorbide Mononitrate [Isosorbide Mononitrate ER] 30 mg PO DAILY 04/14/19 - Past Medical/Surgical History Diabetic: Yes -: HTN -: Hyperlipidemia -: Diabetes mellitus type 2 [id number] -: COPD, oxygen-dependent 2L NC -: CAD with prior stent -: Systolic congestive heart failure, ejection fraction 30% -: Thoracic aortic aneurysm -: Chronic kidney disease -: Anemia of chronic disease -: GERD -: Former tobacco use -: atrial fibrillation -: Hiatal hernia repair -: Aortic aneurysm -: 2 cardiac stents (2010) Psychosocial/ Personal History: Patient is - Family History Father Medical History: Heart disease Mother Medical History: Hypertension, Diabetes Sister Medical History: Diabetes - Social History Smoking Status: Unknown if ever smoked Alcohol use: No CD- Drugs: No Caffeine use: Yes Place of Residence: Home Review of Systems General: Weakness, Malaise Respiratory: Cough, Shortness of Breath Cardiovascular: Edema Physical Examination Temp Pulse Resp BP Pulse Ox 97 F 74 17 118/86 100 05/08/19 08:27 05/08/19 08:27 05/08/19 08:27 05/08/19 08:27 05/08/19 08:27 General: Alert, Moderate distress Neck: Supple Respiratory: Expiratory wheezes Cardiovascular: Normal pulses, Regular rate/rhythm, Edema Gastrointestinal: Normal bowel sounds, Soft and benign Musculoskeletal: No clubbing - Problems (1) Respiratory failure Current Visit: Yes Status: Acute Plan: Patient recurrent hospital admissions admitted with respiratory distress she has moderate pulmonary hypertension I suspect from diastolic dysfunction patient is in acute on chronic renal failure probably all prerenal patient was on diuretics at home hypoxic hypercapnic possible sepsis patient started on meropenem urinalysis positive for possible infection continue with bronchodilator therapy correct hypernatremia may need BiPAP Qualifiers: Chronicity: chronic
[2019-05-08] MEDS ORDERED: SPIRONOLACTONE 25 MG TABLET PO SCH (09:00)
[2019-05-08] MEDS ORDERED: D5W 1,000 ML IV SCH ×2 (09:00→10:00)
[2019-05-08] MEDS: ESCITALOPRAM 20 MG TAB PO SCH (09:00)
[2019-05-08] MEDS ORDERED: PANTOPRAZOLE 40MG TABLET PO SCH (09:00)
[2019-05-08] MEDS: CLOPIDOGREL 75 MG TABLET PO SCH (09:00)
[2019-05-08] MEDS ORDERED: Fluticasone/Umeclidin/Vilanter (Trelegy Ellipta) 100-62.5-25 MCG IN SCH (09:00)
[2019-05-08] MEDS: ASPIRIN 81 MG CHEWABLE TABLET PO SCH (09:00)
--- NOTE | 2019-05-08 09:01 | RAD REPORT ---
EXAM DESCRIPTION: US - Renal Ultrasound-Complete - 05/08/2019 8:18 am CLINICAL HISTORY: arf on ckd Flank pain COMPARISON: Renal Ultrasound-Complete dated 04/15/2019 FINDINGS: Both kidneys are highly echogenic. Small benign cortical cysts are present in both kidneys . The right kidney measures 9.6 x 4.7 x 4.7 cm. No hydronephrosis, focal mass or perinephric fluid. The left kidney measures 7.9 x 4.8 x 4.6 cm. No hydronephrosis, focal mass or perinephric fluid. The urinary bladder is incompletely distended due to Carty catheter. IMPRESSION: Echogenic kidneys bilaterally compatible with medical renal disease.
[2019-05-08] MEDS: ENOXAPARIN 30 MG/0.3 ML SQ SCH (10:00)
[2019-05-08] MEDS: CEFTRIAXONE/SWI 1gm 1 GM/10 ML SYR IV SCH (10:01)
[2019-05-08] MEDS: FUROSEMIDE 100 MG in NA CHLORIDE 0.9% 90 ML IV SCH ×2 (11:17→19:51)
[2019-05-08] MEDS: D5W 1,000 ML IV SCH (11:18)
--- NOTE | 2019-05-08 12:03 | RAD REPORT ---
EXAM DESCRIPTION: RAD - Chest Single View - 05/08/2019 11:38 am CLINICAL HISTORY: pleural effusion COMPARISON: Chest Single View dated 05/07/2019; Chest Single View dated 05/06/2019 TECHNIQUE: AP portable chest image was obtained 05/08/2019 11:38 am . FINDINGS: Lung volumes similar to comparison. Patchy medial left base opacification not substantiall y different. New or progressive left lung field finding not suspected. Pleural and parenchymal opacification in the right base has not changed. Right pleural effusion is no t clearly different. Cardiomegaly remains. Mediastinum is distorted by rotation and tortuosity of the aorta. No pneumothorax. IMPRESSION: Right pleural effusion and right base opacification not clearly different from compariso n. No new or progressive finding suspected.
--- NOTE | 2019-05-08 12:04 | RAD REPORT ---
EXAM DESCRIPTION: RAD - Barium Swallow Modified - 05/08/2019 11:38 am CLINICAL HISTORY: Dysphagia COMPARISON: None. TECHNIQUE: The patient was given liquid, semi-solid and solid forms of barium. Lateral view fluorosc opic imaging was performed in conjunction with speech pathology service. FINDINGS: Cineloop acquisitions: 21 Fluoro time: 4 minutes 29 seconds Laryngeal penetration: not cleared, nectar Aspiration: no cough with thin liquid Pharyngeal residue: moderate with puree in vallecular; minimal to mild with thin, nectar, honey, pur ee in the pyriform and posterior wall. 1-2 sec swallowing delay, moderate esophageal dismotility took > 20 sec to empty into stomach. IMPRESSION: Modified barium swallow as summarized above and fully detailed on speech pathology alli kaufman
--- NOTE | 2019-05-08 13:07 | PN ---
Mrs. Ayala is much more alert today, back to her usual self, not having complaints. Her renal function is deteriorating. Creatinine is up to 2.37, GFR 24. I think it is going to be difficult for us to manage things, if her renal function deteriorates more, she will probably have to be on dialysis. Overall, her cardiac condition is treated as well as can be done at this point. No new additional therapies are recommended. I agree she is stable enough to be transferred to a regular telemetry bed. DOMITILA/CHRISTY Voice ID: [id number] Report ID: [id number] MTDD
--- NOTE | 2019-05-08 15:22 | PN ---
Date of Progress Note: 05/08/2019 Subjective: The patient was admitted with CHF exacerbation, acute kidney injury secondary to cardior enal, patient been over volume. Physical Examination: Vital Signs: When I saw the patient, patient lying in bed, shortness of breath. Blood pressure 120/ 69, pulse of 75. Chest: Crackles bilateral. Heart: S1, S2. Systolic murmur. Abdomen: Soft, nontender. Extremities: +2 edema. Laboratory Data: WBC 5.9, H and H 9.6/32.8, platelets of 86. Sodium 150, potassium 4.6, bicarb 28, BUN 95, creatinine 2.3, calcium of 8.1, phosphorous 5.4, magnesium 2.6. Current Medications: The patient on include ceftriaxone, breathing treatment, Plavix, Lovenox, panto prazole, D5 half. Assessment And Plan: 1.Acute kidney injury secondary to cardiorenal over volume with marginal blood pressure. I going to go ahead and start the patient on Lasix drip and we will monitor the patient. 2.Hypernatremia. Change IV fluid to plain D5 and we will mobilize sodium with diuresis with the Las ix drip and we will follow up. 3.Hypertension. We will utilize blood pressure for more diuresis to establish better volume control . 4.Chronic obstructive pulmonary disease exacerbation as by Pulmonary. 5.Congestive heart failure, ejection fraction of 30%, as above. We will try to establish better volume control with the diuresis. We will consider spironolactone after stabilize the kidney function. ALCIDES/CHRISTY Voice ID: [id number] Report ID: [id number]
[2019-05-08 20:54] LABS: Urine Protein/Creatinine Ratio 0.79 ratio (<0.15)
[2019-05-09] MEDS: IPRATROPIUM BROM 0.5MG/2.5ML NEB SCH ×4 (01:35→19:50)
[2019-05-09] MEDS: ALBUTEROL 2.5 MG/3 ML NEB SOL NEB SCH ×4 (01:35→19:50)
[2019-05-09 06:07] LABS: RBC Red Blood Cell Count 3.41 M/uL (3.86-4.86)
[2019-05-09] MEDS: D5W 1,000 ML IV SCH (06:22)
[2019-05-09] MEDS: FUROSEMIDE 100 MG in NA CHLORIDE 0.9% 90 ML IV SCH ×2 (07:03→17:39)
[2019-05-09 07:45] LABS: Albumin 2.3 g/dL (3.4-5.0); BUN Blood Urea Nitrogen 94 mg/dL (7-18); Bicarbonate 28 mmol/L (21-32); Ferritin 146.6 ng/mL (8-388); Glucose Level 207 mg/dL (74-106); Magnesium 2.6 mg/dL (1.8-2.4); Phosphorus 4.5 mg/dL (2.5-4.9); Potassium 4.4 mmol/L (3.5-5.1); Sodium Level 149 mmol/L (136-145); Transferrin 224 mg/dL (200-360); Uric Acid 10.8 mg/dL (2.6-6.0)
[2019-05-09] MEDS: ARFORMOTEROL TARTRATE 15 MCG/2 ML VIAL.NEB NEB SCH ×2 (07:54→19:50)
--- NOTE | 2019-05-09 08:40 | RAD REPORT ---
EXAM DESCRIPTION: Angy Single View05/09/2019 5:16 am CLINICAL HISTORY: Shortness of breath COMPARISON: May 08, 2019 FINDINGS: Small pleural effusions are unchanged. Mild bibasilar atelectasis Upper lobes appear clear. The heart remains enlarged. Thoracic aortic stent present
[2019-05-09] MEDS: CEFTRIAXONE/SWI 1gm 1 GM/10 ML SYR IV SCH (08:50)
[2019-05-09] MEDS: CLOPIDOGREL 75 MG TABLET PO SCH (08:50)
[2019-05-09] MEDS: ESCITALOPRAM 20 MG TAB PO SCH (08:50)
[2019-05-09] MEDS: ASPIRIN 81 MG CHEWABLE TABLET PO SCH (08:50)
[2019-05-09] MEDS: ENOXAPARIN 30 MG/0.3 ML SQ SCH (08:50)
[2019-05-09] MEDS: Pantoprazole (granules) 40 MG/BLIST PACKET PO SCH (09:42)
--- NOTE | 2019-05-09 11:41 | P.PN ---
Subjective Date of Service: 05/09/19 Primary Care Provider: Dr. Stevens Chief Complaint: Respiratory failure and renal failure and hypernatremia Subjective: Improving (Patient states that she is feeling better still little swollen as some chest congestion) Review of Systems General: Weakness Respiratory: Cough, Shortness of Breath Physical Examination - Vital Signs Temperature: 97.2 F Blood Pressure: 128/95 Pulse: 76 Respirations: 17 Pulse Ox (%): 93 - Physical Exam General: Alert, Oriented x3 Respiratory: Expiratory wheezes Cardiovascular: Edema - Studies Microbiology Data (last 24 hrs): 05/06/19 17:30 Catheterized Urine [place] Count - Final >100,000 CFU/ML. 05/06/19 17:30 Catheterized Urine - Final Escherichia Coli Medications List Reviewed: Yes Assessment & Plan - Problems (Diagnosis) (1) Respiratory failure Current Visit: Yes Status: Acute Plan: Patient has end-stage diastolic disease COPD worsening renal failure hypernatremic patient is currently on a Lasix drip with some IV fluids overall prognosis very poor multiple hospital admissions progressive decline oxygenation satisfactory vital signs stable prognosis poor consider hospice care Qualifiers: Chronicity: chronic Physician Review Additional Text: Impression: Uremic encephalopathy with acute on chronic renal disease stage II Acute on chronic respiratory failure secondary to acute on chronic systolic CHF and COPD exacerbation Pancytopenia Hypertension Depression CAD GERD Diabetes mellitus type 2 Plan: Uremic encephalopathy with acute on chronic renal disease stage II: Patient more alert. Will continue with IV fluids. Nephrology consulted. Await further recommendation. Acute on chronic respiratory failure secondary to acute on chronic systolic CHF and COPD exacerbation: Continue with COPD treatment. Pulmonology consulted to further evaluate. Restart diuretic therapy. Will monitor balance of IV fluids and diuretic therapy. Case reviewed. Patient likely requires hospice. Community Dietitian discussed advanced directives with family. Patient is do not intubate. Will discuss with PCP who will take over tomorrow. Pancytopenia: Monitor closely. Hypertension: Hold blood pressure medication at this time. Depression: Restart medication CAD: Restart aspirin Plavix. GERD: Continue medication Diabetes mellitus type 2: Will monitor Accu-Cheks. Sliding scale in place.
--- NOTE | 2019-05-09 13:29 | PN ---
Date of Progress Note: 05/08/2019 Subjective: When seen in the ICU, patient was apparently much more alert than she has been over the past few days. However, her chemistries have not improved and in fact her creatinine has gone up. T herefore, she was placed on appropriate medication by Nephrology. Cardiology felt that her treatment at present with maximum results. However, nephrology problem seems to be overlying issue at this pa rticular time. After discussion with the family in regard to the probability of dialysis, it was fel t that this would not be appropriate and I think that is a reasonable decision. We will continue on symptomatic and supportive treatment for the next 24 hours and then depending on the results, the pat ient can either be transferred to floor care or possibly even discharge. We will continue to monitor . HR/MODL Voice ID: [id number] Report ID: [id number]
[2019-05-09] MEDS: SOD FERRIC GLUC COMPLX/SUCROSE 250 MG in NA CHLORIDE 0.9% 250 ML IV SCH ×2 (17:00→17:39)
--- NOTE | 2019-05-09 20:41 | PN ---
Date of Progress Note: 05/09/2019 History: Patient was admitted with CHF exacerbation, acute kidney injury secondary to cardiorenal. Yesterday, we started the patient on Lasix drip. Patient had good urine output, still has shortness of breath. Physical Examination: Vital Signs: Blood pressure 103/81, pulse of 83. Had urine output of 2500, negative of 900. Chest: Crackles bilateral base. Heart: S1, S2 systolic murmur. Abdomen: Soft, nontender. Extremities: +1 edema. Laboratory Data: H and H 9.6 and 32.8. Sodium 149, potassium 4.4, bicarb 28, BUN 94, creatinine 2.1 , GFR 27, uric acid 10.8, calcium 8, phosphor 4.5, magnesium 2.6, T-sat of 83, ferritin 146, albumin 2.3. Current Medications: The patient on include aspirin, ceftriaxone, Plavix, Lovenox, citalopram, Lasix drip at 10 mg per hour, pantoprazole. Assessment And Plan: 1.Acute kidney injury secondary to cardiorenal, still over volume. I am going to go ahead and tanja nue Lasix drip. We will monitor the patient. 2.Hypertension, controlled. We will utilize the blood pressure for more diuresis. 3.Iron-deficiency anemia, especially given the heart problem. I am going to start the patient on IV iron and we will follow up. 4.Congestive heart failure, end-stage heart disease. We will try to establish better volume control . Unfortunately, no other option treatment. Case discussed with the patient. Discussed with Dr. Stevens and staff agreed on the plan . DANNY Voice ID: [id number] Report ID: [id number]
[2019-05-10] MEDS: ALBUTEROL 2.5 MG/3 ML NEB SOL NEB SCH ×4 (02:00→20:10)
[2019-05-10] MEDS: IPRATROPIUM BROM 0.5MG/2.5ML NEB SCH ×4 (02:00→20:10)
[2019-05-10] MEDS: FUROSEMIDE 100 MG in NA CHLORIDE 0.9% 90 ML IV SCH (04:26)
[2019-05-10] MEDS: D5W 1,000 ML IV SCH ×2 (04:28→23:00)
[2019-05-10 05:33] LABS: Albumin 2.4 g/dL (3.4-5.0); Magnesium 2.4 mg/dL (1.8-2.4); Phosphorus 3.5 mg/dL (2.5-4.9); Potassium 4.1 mmol/L (3.5-5.1)
[2019-05-10 05:44] VITALS: BMI 23.4
[2019-05-10] MEDS: ARFORMOTEROL TARTRATE 15 MCG/2 ML VIAL.NEB NEB SCH ×2 (07:45→20:10)
[2019-05-10] MEDS ORDERED: SOD FERRIC GLUC COMPLX/SUCROSE 250 MG in NA CHLORIDE 0.9% 250 ML IV SCH ×3 (09:00→17:00)
[2019-05-10] MEDS: ASPIRIN 81 MG CHEWABLE TABLET PO SCH (09:04)
[2019-05-10] MEDS: Pantoprazole (granules) 40 MG/BLIST PACKET PO SCH (09:04)
[2019-05-10] MEDS: ESCITALOPRAM 20 MG TAB PO SCH (09:04)
[2019-05-10] MEDS: CLOPIDOGREL 75 MG TABLET PO SCH (09:13)
[2019-05-10] MEDS: ENOXAPARIN 30 MG/0.3 ML SQ SCH (09:13)
[2019-05-10] MEDS: CEFTRIAXONE/SWI 1gm 1 GM/10 ML SYR IV SCH (09:14)
--- NOTE | 2019-05-10 13:08 | PN ---
Mrs. Ayala is doing fairly well regarding blood pressure, pulmonary situation. Her renal function has improved somewhat. She is on a Lasix drip, so I think she is making some progress. Nephrology' s help has been the most beneficial. She remains on Lasix drip, not on BiPAP. I think she could be transferred to regular floor soon. DOMITILA/MODL Voice ID: [id number] Report ID: [id number]
--- NOTE | 2019-05-10 16:09 | PN ---
Date of Progress Note: 05/10/2019 Reason For Consultation: Patient was admitted with acute kidney injury, cardiorenal. Physical Examination: Vital Signs: Blood pressure 127/98, pulse of 88. Patient had good urine output of 3100, negative of 700. Patient is still on Lasix drip at 10 mg per hour. Chest: Crackles bilateral. Heart: S1, S2. Systolic murmur. Abdomen: Soft, nontender. Extremities: Plus edema. Laboratory Data: H and H of 9.6/32.8. Sodium 148, potassium 4.1, bicarb 28, BUN 79, creatinine 1.9 continued to trend down close to baseline, baseline 1.7. GFR of 31. Calcium 8.0, phosphorus 3.5, ma gnesium 2.4, albumin 2.4, corrected calcium is 9.2. Current Medications: The patient on include: 1.Aspirin. 2.Ceftriaxone. 3.IV iron. 4.Plavix. 5.Lovenox. 6.Lasix drip. 7.Citalopram. Assessment And Plan: 1.Acute kidney injury secondary to cardiorenal. Continue to recover. I am going to change Lasix to every 8 hours slow push hopefully tomorrow. We can switch it to oral tomorrow or day after. 2.Hypernatremia. Continue D5. 3.Anemia of chronic kidney disease with iron-deficiency anemia. Continue IV iron. 4.Congestive heart failure, end stage. Follow up with primary and Cardiology. 5.Deconditioning. We will continue supportive care. Overall, patient with poor prognosis. We will follow up. DANNY Voice ID: [id number] Report ID: [id number]
[2019-05-10] MEDS: SOD FERRIC GLUC COMPLX/SUCROSE 250 MG in NA CHLORIDE 0.9% 250 ML IV SCH (16:37)
[2019-05-10] MEDS: FUROSEMIDE IV SCH (16:38)
[2019-05-10] MEDS: NA CHLORIDE 0.9% IV SCH (16:38)
--- NOTE | 2019-05-10 20:45 | PN ---
Date of Progress Note: 05/09/2019 Patient is basically status quo as far as her mental and physical status while in ICU. However, chem istries improved rather significantly on IV Lasix drip. The Nephrology plan is to gradually decrease her drip and possibly discharge her to floor care tomorrow. The patient's mentation is basically at baseline and cardiac status is stable and reached optimal treatment. Pulmonary status is variable. Discussion with Nephrology is the main tow car driver of the clinical situation at present, and after discus rod, we decided that the treatment will basically amount to intermittent use of IV Lasix drips on as -necessary basis with the patient probably being discharged home with home health in between these st ages. HR/MODL Voice ID: [id number] Report ID: [id number]
--- NOTE | 2019-05-10 20:47 | PN ---
Date of Progress Note: 05/10/2019 The patient is stable. She had been transferred to floor care. Her IV Lasix drip has been decreased . Her antibiotic Rocephin for gram-positive E coli UTI discontinued as of minal hernández, and she will be changed to Keflex for couple days in preparation for possible discharge. HR/MODL Voice ID: [id number] Report ID: [id number]
[2019-05-10] MEDS: CEPHALEXIN 500 MG CAP PO SCH (20:54)
[2019-05-11] MEDS: NA CHLORIDE 0.9% IV SCH ×3 (00:23→17:33)
[2019-05-11] MEDS: FUROSEMIDE IV SCH ×3 (00:23→17:33)
[2019-05-11] MEDS: IPRATROPIUM BROM 0.5MG/2.5ML NEB SCH ×4 (01:55→19:35)
[2019-05-11] MEDS: ALBUTEROL 2.5 MG/3 ML NEB SOL NEB SCH ×2 (01:55→07:45)
[2019-05-11] MEDS: D5W 1,000 ML IV SCH ×2 (02:45→17:32)
[2019-05-11 06:30] LABS: Albumin 2.5 g/dL (3.4-5.0); Magnesium 2.4 mg/dL (1.8-2.4); Phosphorus 3.1 mg/dL (2.5-4.9); Potassium 3.8 mmol/L (3.5-5.1)
[2019-05-11] MEDS: ARFORMOTEROL TARTRATE 15 MCG/2 ML VIAL.NEB NEB SCH ×2 (07:45→19:35)
[2019-05-11] MEDS ORDERED: POTASSIUM CL SA 10 MEQ TAB PO ONE (09:00)
[2019-05-11] MEDS: ENOXAPARIN 30 MG/0.3 ML SQ SCH (09:09)
[2019-05-11] MEDS: ESCITALOPRAM 20 MG TAB PO SCH (09:10)
[2019-05-11] MEDS: CEPHALEXIN 500 MG CAP PO SCH ×2 (09:11→21:03)
[2019-05-11] MEDS: ASPIRIN 81 MG CHEWABLE TABLET PO SCH (09:11)
[2019-05-11] MEDS: Pantoprazole (granules) 40 MG/BLIST PACKET PO SCH (09:11)
[2019-05-11] MEDS: CLOPIDOGREL 75 MG TABLET PO SCH (09:11)
[2019-05-11 09:46] LABS: Arterial Blood Carboxyhemoglob 2.7 % (0-1.5); Blood Gas Oxyhemoglobin 80.6 % (94-97); Blood O2 Saturation 83.6 % (92-98.5)
--- NOTE | 2019-05-11 10:48 | PN ---
Ms. Ayala is on the regular floor, and this morning she is much more confused, somnolent, lethargi c. I am strongly suspicious she has retaining CO2 and has CO2 narcosis. An order for an arterial bl ood gas will be made. We will see if she needs to be put back on BiPAP or perhaps observed in the [facility]. I believe Ms. Ayala is becoming extremely difficult to manage and probably needs to be made ho spice care only. DOMITILA/CHRISTY Voice ID: [id number] Report ID: [id number]
[2019-05-11] MEDS ORDERED: ALBUTEROL 2.5 MG/3 ML NEB SOL NEB PRN (11:09)
--- NOTE | 2019-05-11 11:10 | P.PN ---
Subjective Date of Service: 05/11/19 Primary Care Provider: Dr. Stevens Chief Complaint: Respiratory failure and renal failure and hypernatremia No change patient is typically worse in the morning is more dyspneic over alert responsive cooperative has baseline hypercapnia Review of Systems General: Weakness Respiratory: Shortness of Breath Physical Examination - Vital Signs Temperature: 97.0 F Blood Pressure: 125/88 Pulse: 103 Respirations: 19 Pulse Ox (%): 95 - Physical Exam General: Alert, Moderate distress Respiratory: Crackles/rales, Rhonchi/gurgles Cardiovascular: No edema, Edema - Studies Medications List Reviewed: Yes Assessment & Plan - Problems (Diagnosis) (1) Respiratory failure Current Visit: Yes Status: Acute Plan: Patient has respiratory failure worse this morning trial of BiPAP hypoxic hypercapnic patient has severe COPD consider LTAC overall prognosis poor renal function is improved patient is on a Lasix drip Qualifiers: Chronicity: chronic
--- NOTE | 2019-05-11 13:38 | P.PN ---
Subjective Date of Service: 05/13/19 Primary Care Provider: Dr. Stevens Chief Complaint: Respiratory failure and renal failure and hypernatremia subjective Pt with CHF and CKD III admitted for SOB and DARRYL today No overnight events still BiPAP dependant Cr improving to 1.6 , sodium 146 Still have +2 leg edema will cont D5W for 1 mre day and switch lasix to PO tomorrow poor prognosis Allergies iodine Allergy (Mild, Verified 06/03/18 18:17) Itching/Hives/Rash codeine Adverse Reaction (Intermediate, Verified 06/03/18 18:17) Hives/Rash Home Medications: Acetaminophen [Tylenol*] 2 tab PO Q4H PRN 04/13/19 Aspirin 1 tab PO DAILY 04/13/19 Atorvastatin Calcium [Lipitor*] 40 mg PO BEDTIME 04/13/19 Bumetanide [Bumex*] 1 mg PO DAILY 04/13/19 Carvedilol [Coreg] 1 tab PO BID 04/13/19 Clopidogrel Bisulfate [Plavix*] 1 tab PO DAILY 04/13/19 Escitalopram Oxalate 1 tab PO DAILY 04/13/19 Fluticasone/Umeclidin/Vilanter [Trelegy Ellipta 100-62.5-25] 1 puff IN DAILY 01/21 Pantoprazole [Protonix Tab*] 40 mg PO DAILY 04/13/19 Spironolactone [Aldactone*] 25 mg PO DAILY 04/13/19 - Past Medical/Surgical History Diabetic: Yes -: HTN -: Hyperlipidemia -: Diabetes mellitus type 2 [id number] -: COPD, oxygen-dependent 2L NC -: CAD with prior stent -: Systolic congestive heart failure, ejection fraction 30% -: Thoracic aortic aneurysm -: Chronic kidney disease -: Anemia of chronic disease -: GERD -: Former tobacco use -: atrial fibrillation -: Hiatal hernia repair -: Aortic aneurysm -: 2 cardiac stents (2010) Psychosocial/ Personal History: Patient is - Family History Father Medical History: Heart disease Mother Medical History: Diabetes Sister Medical History: Diabetes - Social History Smoking Status: Unknown if ever smoked Alcohol use: No CD- Drugs: No Caffeine use: No physical exam General: Alert, Mild distress, on BiPAP HEENT: Atraumatic, Normocephalic Neck: Supple, no elevated JVD Respiratory: mild basal rales Cardiovascular: Regular rate/rhythm, No gallops, No rubs, No murmurs, Edema Gastrointestinal: Soft and benign, Non-distended, No tenderness Musculoskeletal: +2 edema Integumentary: No rashes A/P DARRYL on CKD III due to cardiorenal syndrome renal dose meds cont lasix avoid NSAID and contrast iron deficiency Anemia Cont IV iron Hypernatremia improving cont d5W for now respiratory failure BiPAP dependant now CHF Cont lasix as above HTN controlled Dm as per PCP poor prognosis Physical Examination - Vital Signs Temperature: 97.0 F Blood Pressure: 125/88 Pulse: 103 Respirations: 19 Pulse Ox (%): 95 - Studies Medications List Reviewed: Yes
--- NOTE | 2019-05-11 19:16 | PN ---
Date of Progress Note: 05/11/2019 Patient's condition continues to deteriorate. Blood gases show marked increase in her CO2 retention. She is placed back on BiPAP and in discussion with her family in regard to disposition with the opt ions of hospice and obvious taught and apparently think she will qualify for SNF using BiPAP unless t hey have a high level SNF according to criminal justice social worker and these are not available locally. I will m eet with the family in the morning and decide on the pathway somewhat dependent obviously on how the patient is doing remarkably. Her blood chemistries specially her creatinine is better. She has been seen by Nephrology, Pulmonology, and Cardiology. HR/MODL Voice ID: [id number] Report ID: [id number]
[2019-05-12] MEDS: NA CHLORIDE 0.9% IV SCH ×3 (00:33→17:28)
[2019-05-12] MEDS: FUROSEMIDE IV SCH ×3 (00:33→17:28)
[2019-05-12] MEDS: IPRATROPIUM BROM 0.5MG/2.5ML NEB SCH ×4 (01:20→19:43)
[2019-05-12 06:43] LABS: Albumin 2.3 g/dL (3.4-5.0); Magnesium 2.4 mg/dL (1.8-2.4); Phosphorus 3.1 mg/dL (2.5-4.9); Potassium 3.8 mmol/L (3.5-5.1)
[2019-05-12] MEDS: ARFORMOTEROL TARTRATE 15 MCG/2 ML VIAL.NEB NEB SCH ×2 (07:57→19:43)
[2019-05-12] MEDS: Pantoprazole (granules) 40 MG/BLIST PACKET PO SCH (08:57)
[2019-05-12] MEDS: ASPIRIN 81 MG CHEWABLE TABLET PO SCH (08:57)
[2019-05-12] MEDS: CLOPIDOGREL 75 MG TABLET PO SCH (08:57)
[2019-05-12] MEDS: ESCITALOPRAM 20 MG TAB PO SCH (08:58)
[2019-05-12] MEDS: CEPHALEXIN 500 MG CAP PO SCH ×2 (08:58→19:46)
[2019-05-12] MEDS: ENOXAPARIN 30 MG/0.3 ML SQ SCH (09:00)
[2019-05-12] MEDS ORDERED: KCL 20 MEQ/100 mL IVPB 20 MEQ/100 ML BAG IV SCH (09:00)
--- NOTE | 2019-05-12 10:26 | PN ---
Subjective: Ms. Ayala has improved since yesterday. Mental status better. Her oxygen saturation seems to be better. Her PO2 yesterday was in the 50s. Her pH was fine, pCO2 only slightly elevated so I think the patient is going back and forth between having poor lung function from a little bit too much volume, worsening renal function from little bit too smaller volume. Her therapeutic window for diuretics is extremely narrow. Her prognosis is terrible. I would ask Dr. tSevens to consider recommending hospice care to Ms. Ayala. Thank you very much for your kind referral. JONATHAN Voice ID: [id number] Report ID: [id number] ESAU
--- NOTE | 2019-05-12 12:02 | PN ---
Date of Progress Note: 05/12/2019 Patient is much more alert today and obviously this has been a variable situation depending on her bl ood gases and use of BiPAP. Disposition discussion was held with the family and was felt we could do in-hospital hospice and depending on the necessity for a BiPAP, make a decision as far as hospice at home and the qualification for the in-hospital hospice should be the pulmonary instability. Both lmonology and Cardiology felt that this would be appropriate and I agree, and the IV Lasix drip has b een slowly weaned down on the probability of being able to sustain this on a p.o. basis. This is lik román at least temporarily. Obviously, the patient quite finally balance in critical condition. Famil y is aware of this and in fact had been in hospice number of months ago on a temporary basis. Hospic e will be notified today and necessary treatment will follow. HR/MODL Voice ID: [id number] Report ID: [id number]
--- NOTE | 2019-05-12 15:01 | P.PN ---
Subjective Date of Service: 05/12/19 Primary Care Provider: Dr. Stevens Chief Complaint: Respiratory failure and renal failure and hypernatremia subjective Pt with CHF and CKD III admitted for SOB and DARRYL today more alert today, cont to have +2 edema BiPAP prn Cr improving Still have +2 leg edema hospice service consulted will cont D5W for and lasix for now , further plan as per family decision poor prognosis Allergies iodine Allergy (Mild, Verified 06/03/18 18:17) Itching/Hives/Rash codeine Adverse Reaction (Intermediate, Verified 06/03/18 18:17) Hives/Rash Home Medications: Acetaminophen [Tylenol*] 2 tab PO Q4H PRN 04/13/19 Aspirin 1 tab PO DAILY 04/13/19 Atorvastatin Calcium [Lipitor*] 40 mg PO BEDTIME 04/13/19 Bumetanide [Bumex*] 1 mg PO DAILY 04/13/19 Carvedilol [Coreg] 1 tab PO BID 04/13/19 Clopidogrel Bisulfate [Plavix*] 1 tab PO DAILY 04/13/19 Escitalopram Oxalate 1 tab PO DAILY 04/13/19 Fluticasone/Umeclidin/Vilanter [Trelegy Ellipta 100-62.5-25] 1 puff IN DAILY 01/21 Pantoprazole [Protonix Tab*] 40 mg PO DAILY 04/13/19 Spironolactone [Aldactone*] 25 mg PO DAILY 04/13/19 - Past Medical/Surgical History Diabetic: Yes -: HTN -: Hyperlipidemia -: Diabetes mellitus type 2 [id number] -: COPD, oxygen-dependent 2L NC -: CAD with prior stent -: Systolic congestive heart failure, ejection fraction 30% -: Thoracic aortic aneurysm -: Chronic kidney disease -: Anemia of chronic disease -: GERD -: Former tobacco use -: atrial fibrillation -: Hiatal hernia repair -: Aortic aneurysm -: 2 cardiac stents (2010) Psychosocial/ Personal History: Patient is - Family History Father Medical History: Heart disease Mother Medical History: Diabetes Sister Medical History: Diabetes - Social History Smoking Status: Unknown if ever smoked Alcohol use: No CD- Drugs: No Caffeine use: No physical exam General: more alert, , NAD , on BiPAP HEENT: Atraumatic, Normocephalic Neck: Supple, no elevated JVD Respiratory: mild basal rales Cardiovascular: Regular rate/rhythm, No gallops, No rubs, No murmurs, Edema Gastrointestinal: Soft and benign, Non-distended, No tenderness Musculoskeletal: +2 edema Integumentary: No rashes A/P DARRYL on CKD III improving due to cardiorenal syndrome renal dose meds cont lasix avoid NSAID and contrast iron deficiency Anemia Cont IV iron Hypernatremia improving cont d5W for now, encourage to increase fluid intake by 16-20oz respiratory failure BiPAP dependant now CHF Cont lasix as above HTN controlled Dm as per PCP poor prognosis Physical Examination - Vital Signs Temperature: 97.9 F Blood Pressure: 124/90 Pulse: 87 Respirations: 17 Pulse Ox (%): 97 - Studies Microbiology Data (last 24 hrs): 05/06/19 17:15 Blood - Blood Aerobic Blood Culture - Final No growth in 5 days. 05/06/19 17:15 Blood - Blood Anaerobic Blood Culture - Final No growth in 5 days. 05/06/19 17:05 Blood - Blood Aerobic Blood Culture - Final No growth in 5 days. 05/06/19 17:05 Blood - Blood Anaerobic Blood Culture - Final No growth in 5 days. Medications List Reviewed: Yes
[2019-05-12] MEDS: D5W 1,000 ML IV SCH (15:47)
[2019-05-13] MEDS: FUROSEMIDE IV SCH ×3 (00:48→17:24)
[2019-05-13] MEDS: NA CHLORIDE 0.9% IV SCH ×3 (00:48→17:24)
[2019-05-13] MEDS: IPRATROPIUM BROM 0.5MG/2.5ML NEB SCH ×4 (01:40→19:45)
[2019-05-13 06:54] LABS: Albumin 2.4 g/dL (3.4-5.0); Magnesium 2.4 mg/dL (1.8-2.4)
[2019-05-13] MEDS: ARFORMOTEROL TARTRATE 15 MCG/2 ML VIAL.NEB NEB SCH ×2 (08:05→19:45)
[2019-05-13] MEDS: CEPHALEXIN 500 MG CAP PO SCH ×2 (09:00→21:16)
[2019-05-13] MEDS: ASPIRIN 81 MG CHEWABLE TABLET PO SCH (09:11)
[2019-05-13] MEDS: ESCITALOPRAM 20 MG TAB PO SCH (09:11)
[2019-05-13] MEDS: CLOPIDOGREL 75 MG TABLET PO SCH (09:11)
[2019-05-13] MEDS: ENOXAPARIN 30 MG/0.3 ML SQ SCH (09:12)
[2019-05-13] MEDS: Pantoprazole (granules) 40 MG/BLIST PACKET PO SCH (09:18)
--- NOTE | 2019-05-13 12:34 | P.PN ---
Subjective Date of Service: 05/18/19 Primary Care Provider: Dr. Stevens Chief Complaint: Respiratory failure and renal failure and hypernatremia Subjective: No new changes subjective Pt with CHF and CKD III admitted for SOB and DARRYL today No overnight events More alert, eating with assistance Sodium and edema improving, now trace leg edema with significant pedal edema will cont D5W for now hospice consulted , waiting for family decision poor prognosis Allergies iodine Allergy (Mild, Verified 06/03/18 18:17) Itching/Hives/Rash codeine Adverse Reaction (Intermediate, Verified 06/03/18 18:17) Hives/Rash Home Medications: Acetaminophen [Tylenol*] 2 tab PO Q4H PRN 04/13/19 Aspirin 1 tab PO DAILY 04/13/19 Atorvastatin Calcium [Lipitor*] 40 mg PO BEDTIME 04/13/19 Bumetanide [Bumex*] 1 mg PO DAILY 04/13/19 Carvedilol [Coreg] 1 tab PO BID 04/13/19 Clopidogrel Bisulfate [Plavix*] 1 tab PO DAILY 04/13/19 Escitalopram Oxalate 1 tab PO DAILY 04/13/19 Fluticasone/Umeclidin/Vilanter [Trelegy Ellipta 100-62.5-25] 1 puff IN DAILY 01/21 Pantoprazole [Protonix Tab*] 40 mg PO DAILY 04/13/19 Spironolactone [Aldactone*] 25 mg PO DAILY 04/13/19 - Past Medical/Surgical History Diabetic: Yes -: HTN -: Hyperlipidemia -: Diabetes mellitus type 2 [id number] -: COPD, oxygen-dependent 2L NC -: CAD with prior stent -: Systolic congestive heart failure, ejection fraction 30% -: Thoracic aortic aneurysm -: Chronic kidney disease -: Anemia of chronic disease -: GERD -: Former tobacco use -: atrial fibrillation -: Hiatal hernia repair -: Aortic aneurysm -: 2 cardiac stents (2010) Psychosocial/ Personal History: Patient is - Family History Father Medical History: Heart disease Mother Medical History: Diabetes Sister Medical History: Diabetes - Social History Smoking Status: Unknown if ever smoked Alcohol use: No CD- Drugs: No Caffeine use: No physical exam General: Alert, NAD , HEENT: Atraumatic, Normocephalic Neck: Supple, no elevated JVD Respiratory: mild basal rales Cardiovascular: Regular rate/rhythm, No gallops, No rubs, No murmurs, Edema Gastrointestinal: Soft and benign, Non-distended, No tenderness Musculoskeletal: trace leg edema , with +2 pedal edema Integumentary: No rashes A/P DARRYL on CKD III due to cardiorenal syndrome renal dose meds cont lasix avoid NSAID and contrast iron deficiency Anemia Cont IV iron Hypernatremia resolved cont d5W for now respiratory failure BiPAP dependant now CHF Cont lasix as above HTN controlled Dm as per PCP poor prognosis Physical Examination - Vital Signs Temperature: 97.0 F Blood Pressure: 125/88 Pulse: 103 Respirations: 19 Pulse Ox (%): 95 - Studies Medications List Reviewed: Yes
[2019-05-13] MEDS: D5W 1,000 ML IV SCH (13:08)
[2019-05-13] MEDS: SOD FERRIC GLUC COMPLX/SUCROSE 250 MG in NA CHLORIDE 0.9% 250 ML IV SCH (16:50)
[2019-05-14] MEDS: IPRATROPIUM BROM 0.5MG/2.5ML NEB SCH ×3 (01:35→14:13)
[2019-05-14] MEDS: D5W 1,000 ML IV SCH ×2 (07:00→13:22)
[2019-05-14] MEDS: ARFORMOTEROL TARTRATE 15 MCG/2 ML VIAL.NEB NEB SCH (08:02)
[2019-05-14] MEDS: ENOXAPARIN 30 MG/0.3 ML SQ SCH (08:57)
[2019-05-14] MEDS: ASPIRIN 81 MG CHEWABLE TABLET PO SCH (08:59)
[2019-05-14] MEDS: ESCITALOPRAM 20 MG TAB PO SCH (08:59)
[2019-05-14] MEDS: CEPHALEXIN 500 MG CAP PO SCH (09:00)
[2019-05-14] MEDS: Pantoprazole (granules) 40 MG/BLIST PACKET PO SCH (09:00)
[2019-05-14] MEDS: CLOPIDOGREL 75 MG TABLET PO SCH (09:00)
[2019-05-14] MEDS: FUROSEMIDE IV SCH ×3 (09:43)
[2019-05-14] MEDS: NA CHLORIDE 0.9% IV SCH ×3 (09:43)
[2019-05-14] MEDS ORDERED: ALBUTEROL 2.5 MG/3 ML NEB SOL NEB PRN (15:00)
--- NOTE | 2019-05-14 15:37 | PN ---
Patient basically is status quo. However, she has had less dependency on the BiPAP. Her chemistries continued to be stable. She is basically bedridden, slightly disoriented. Her family has decided o n had home hospice and awaiting the delivery of the BiPAP. This should be done later today, at which time she will be discharged. The other remaining question is the Lasix dose requirement and Nephrol ogy will handle this aspect prior to her being discharged. HR/MODL Voice ID: [id number] Report ID: [id number]
[2019-05-14] MEDS ORDERED: FUROSEMIDE 40 MG TABLET PO SCH (17:00)
[2019-05-14 17:42] VITALS: O2SAT 99
--- NOTE | 2019-05-15 00:28 | PN ---
Date of Progress Note: 05/14/2019 Chief Complaint: Acute on chronic kidney injury. Renal function has gradually improved. Patient has nonoliguric urine output. Patient has history of congestive heart failure. She was admitted for shortness of breath and acute kidney injury. Patient is smiling today. She is tolerating p.o. intake. Review of Systems: Denies complaints. Physical Examination: Lungs: Clear to auscultation bilaterally. Heart: S1, S2. Abdomen: Soft, benign. Extremities: Legs edema has improved. Laboratory Data: Hemoglobin 9.6, WBC 5.9, and platelet count 86,000. Sodium 145, potassium 4.0, chloride 110, CO2 31, BUN 55, creatinine 1.52, glucose 115, calcium 8.3. Impression And Plan: 1. Hypernatremia. Sodium level has improved to 145. The patient is tolerating p.o. intake. Continue treatment and advance p.o. fluid intake as tolerated. 2. Hyperazotemia, improving. BUN 55 and during this admission, BUN was up to 101. 3. Hypertension, blood pressure control. 4. Congestive heart failure. The patient will continue diuretics as needed to control volemia. NERIS/MODL Voice ID: [id number] Report ID: [id number] ESAU
[2019-05-18 10:45] VITALS: BP 125/88; TEMP 97
--- NOTE | 2019-07-16 10:02 | DS ---
Date of Discharge: 05/14/2019 History: The patient was admitted to the hospital on 05/06, had presented to the emergency room with significant dyspnea and altered mental status. The patient has been hospitalized on numerous occasi ons over the past few years with similar problems. However, this time seemed the respiratory distres s was more significant. She had recently been hospitalized for what was presumed to be a pneumonitis . She was admitted to the ICU, started on symptomatic treatment. Possibility of renal, pulmonary, c ardiac failure were all considered in the diagnosis and she was treated accordingly. An IV Lasix dri p was instituted, required BiPAP, and on the above-outlined regimen she did show enough improvement t o be transferred to floor care. When she was on floor care, her clinical condition also was variable . She was somewhat better in the morning, became obviously dyspneic in the evening hours, once again required BiPAP which was utilized on a p.r.n. basis. She was followed by Nephrology, Cardiology, Pu lmonology and myself. Her course was rather stormy. Her hypertension was controlled. Her hypernatr emia was eventually controlled and her diabetes was also controlled. The possibility of sepsis was a lso considered initial diagnosis, this was not confirmed clinically. When she became stable, the que stion of further care was considered and significant discussion was held with the family as to her di sposition. Eventually, awaiting delivery of her BiPAP machine, was felt she could be handled at home on hospice situation and this was set up and she was discharge in poor condition on 05/14 and continu e on her usual medication, the use of BiPAP, increased diuresis. Final Diagnoses: Altered mental status; respiratory failure; acute on chronic kidney disease; conges tive heart failure, acute on chronic; hypertension, controlled; non-insulin dependent diabetes mellitus, good control. HR/MODL Voice ID: [id number] Report ID: [id number]
== END 2019-05-14 18:55 | disposition hospice, home (50) | DRG 291 ==
LOC: ER 16:44 → ERHOLD 22:00 → 3RD-ICU 22:32 → 2ND 05-10 11:20
PROVIDERS: ADMIT Family Medicine; ATTEND Family Medicine
PROC: 5A09357 Assistance with Respiratory Ventilation, Less than 24 Consecutive Hours, Continuous Positive Airway Pressure (ICD-10-PCS; principal; 2019-05-07)
DX: I50.23 Acute on chronic systolic (congestive) heart failure (principal); J96.20 Acute and chronic respiratory failure, unspecified whether with hypoxia or hypercapnia; J44.1 Chronic obstructive pulmonary disease with (acute) exacerbation; N17.9 Acute kidney failure, unspecified; D61.818 Other pancytopenia; E87.0 Hyperosmolality and hypernatremia; G93.49 Other encephalopathy; I13.0 Hypertensive heart and chronic kidney disease with heart failure and stage 1 through stage 4 chronic kidney disease, or unspecified chronic kidney disease; J98.11 Atelectasis; E11.22 Type 2 diabetes mellitus with diabetic chronic kidney disease; I12.9 Hypertensive chronic kidney disease with stage 1 through stage 4 chronic kidney disease, or unspecified chronic kidney disease; I25.10 Atherosclerotic heart disease of native coronary artery without angina pectoris; K21.9 Gastro-esophageal reflux disease without esophagitis; D50.9 Iron deficiency anemia, unspecified; N18.3 Chronic kidney disease, stage 3 (moderate); T68.XXXA Hypothermia, initial encounter; I71.2 Thoracic aortic aneurysm, without rupture
CPT/HCPCS: 36415; 51702; 70450; 71045; 71250; 74230; 76770; 80048; 80053; 80069; 80076; 81003; 81015; 82150; 82533; 82550; 82553; 82570; 82607; 82728; 82805; 82947; 83540; 83605; 83690; 83735; 83880; 84100; 84145; 84156; 84439; 84443; 84466; 84484; 84550; 85025; 85044; 85610; 85730; 86021; 86334; 87040; 87077; 87086; 87088; 87186; 87804; 92610; 92611; 93005; 94660; 94760; 96365; 96366; 99285; J0696; J1650; J1940; J2543; J2916; J2930; J7030; J7605; J7799